=== PATIENT | female | born 1990 | race Caucasian/White ===

== ENCOUNTER → 2017-08-04 08:01 | Outpatient (CLI) | payer MEDICARE, MEDICAID, SELFPAY ==
[2017-08-04 08:58] LABS: International Normalized Ratio 3.3; Prothrombin Time (Protime)PT. 32.3 SECONDS (11.7-14.9)
== END ==
PROVIDERS: Family Provider Internal Medicine; PCP Internal Medicine; Visit Provider Nurse Practitioner Adult Health
DX: D75.82 Heparin induced thrombocytopenia (HIT) (principal); Z86.718 Personal history of other venous thrombosis and embolism
CPT/HCPCS: 36592; 85610; A4216

== ENCOUNTER → 2017-08-11 07:55 | Outpatient (CLI) | payer MEDICARE, MEDICAID, SELFPAY ==
[2017-08-11 09:10] LABS: Prothrombin Time (Protime)PT. 29.9 SECONDS (11.7-14.9)
== END ==
PROVIDERS: Family Provider Internal Medicine; PCP Internal Medicine
DX: D75.82 Heparin induced thrombocytopenia (HIT) (principal); Z86.718 Personal history of other venous thrombosis and embolism
CPT/HCPCS: 36592; 85610; A4216

== ENCOUNTER → 2017-08-16 08:08 | Outpatient (CLI) | payer MEDICARE, MEDICAID, SELFPAY ==
[2017-08-16 09:09] LABS: Prothrombin Time (Protime)PT. 37.8 SECONDS (11.7-14.9)
== END ==
PROVIDERS: Family Provider Internal Medicine; PCP Internal Medicine; Visit Provider Nurse Practitioner Adult Health
DX: D75.82 Heparin induced thrombocytopenia (HIT) (principal); Z86.718 Personal history of other venous thrombosis and embolism
CPT/HCPCS: 36592; 85610; A4216

== ENCOUNTER → 2017-08-25 07:55 | Outpatient (CLI) | payer MEDICARE, MEDICAID, SELFPAY ==
[2017-08-25 08:26] LABS: International Normalized Ratio 1.9; Prothrombin Time (Protime)PT. 21.4 SECONDS (11.7-14.9)
== END ==
PROVIDERS: Family Provider Internal Medicine; PCP Internal Medicine
DX: D75.82 Heparin induced thrombocytopenia (HIT) (principal); Z86.718 Personal history of other venous thrombosis and embolism
CPT/HCPCS: 36592; 85610; A4216

== ENCOUNTER → 2017-09-08 07:45 | Outpatient (CLI) | payer MEDICARE, MEDICAID, SELFPAY ==
[2017-09-08 08:20] LABS: International Normalized Ratio 1.4; Prothrombin Time (Protime)PT. 17.6 SECONDS (11.7-14.9)
== END ==
PROVIDERS: Family Provider Internal Medicine; PCP Internal Medicine; Visit Provider Nurse Practitioner Adult Health
DX: D75.82 Heparin induced thrombocytopenia (HIT) (principal); Z86.718 Personal history of other venous thrombosis and embolism
CPT/HCPCS: 36592; 85610; A4216

== ENCOUNTER → 2017-09-11 08:00 | Outpatient (CLI) | payer MEDICARE, MEDICAID, SELFPAY ==
[2017-09-11 08:22] LABS: Prothrombin Time (Protime)PT. 22.5 SECONDS (11.7-14.9)
[2017-09-11 09:04] LABS: Absolute Neutrophil Count 1.7 X10^3/uL (2.0-7.7); Basophil# 0.01 X10^3/uL; Basophil% 0.4 % (0-1); Differential Indicated SCAN CRITERIA MET; Eosinophil# 0.15 X10^3/uL; Eosinophils% 5.9 % (0-5); Hemoglobin 8.7 g/dl (12.0-15.0); Lymphocyte % 15.6 % (19-41); Mean Corpuscular Hgb 26.3 pg (27.0-32.0); Mean Corpuscular Volume 87.6 fL (81-99); Monocyte# 0.27 X10^3/uL; Monocyte% 10.5 % (0-10); Neutrophil # 1.72 X10^3/uL (2.7-7.7); Neutrophil % 67.2 % (47-70); POSITIVE COUNT NO; POSITIVE DIFFERENTIAL YES; POSITIVE MORPHOLOGY YES; Platelet Count 56 K/mm3 (150-450); RBC Distribution Width CV 22.4 % (11.6-14.6); Red Blood Count 3.31 M/mm3 (4.2-5.4); White Blood Count 2.6 K/mm3 (4.4-11.0)
== END ==
PROVIDERS: Family Provider Internal Medicine; PCP Internal Medicine; Visit Provider Nurse Practitioner Adult Health
DX: D75.82 Heparin induced thrombocytopenia (HIT) (principal); Z86.718 Personal history of other venous thrombosis and embolism
CPT/HCPCS: 36592; 85025; 85610; A4216

== ENCOUNTER → 2017-09-15 07:52 | Outpatient (CLI) | payer MEDICARE, MEDICAID, SELFPAY ==
[2017-09-15 08:27] LABS: International Normalized Ratio 2.2; Prothrombin Time (Protime)PT. 24.5 SECONDS (11.7-14.9)
== END ==
PROVIDERS: Family Provider Internal Medicine; PCP Internal Medicine; Visit Provider Nurse Practitioner Adult Health
DX: D75.82 Heparin induced thrombocytopenia (HIT) (principal); Z86.718 Personal history of other venous thrombosis and embolism
CPT/HCPCS: 36592; 85610; A4216

== ENCOUNTER → 2017-09-22 07:53 | Outpatient (CLI) | payer MEDICARE, MEDICAID, SELFPAY ==
[2017-09-22 08:21] LABS: International Normalized Ratio 1.6; Prothrombin Time (Protime)PT. 19.4 SECONDS (11.7-14.9)
== END ==
PROVIDERS: Family Provider Internal Medicine; PCP Internal Medicine; Visit Provider Nurse Practitioner Adult Health
DX: D75.82 Heparin induced thrombocytopenia (HIT) (principal); Z86.718 Personal history of other venous thrombosis and embolism
CPT/HCPCS: 36592; 85610; A4216

== ENCOUNTER → 2017-09-29 07:55 | Outpatient (CLI) | payer MEDICARE, MEDICAID, SELFPAY ==
[2017-09-29 08:33] LABS: Prothrombin Time (Protime)PT. 23.1 SECONDS (11.7-14.9)
== END ==
PROVIDERS: Family Provider Internal Medicine; PCP Internal Medicine; Visit Provider Nurse Practitioner Adult Health
DX: D75.82 Heparin induced thrombocytopenia (HIT) (principal); Z86.718 Personal history of other venous thrombosis and embolism
CPT/HCPCS: 36592; 85610; A4216

== ENCOUNTER → 2017-10-06 07:52 | Outpatient (CLI) | payer MEDICARE, MEDICAID, SELFPAY ==
[2017-10-06 08:27] LABS: International Normalized Ratio 1.2; Prothrombin Time (Protime)PT. 15.2 SECONDS (11.7-14.9)
== END ==
PROVIDERS: Family Provider Internal Medicine; PCP Internal Medicine; Visit Provider Nurse Practitioner Adult Health
DX: D75.82 Heparin induced thrombocytopenia (HIT) (principal); Z86.718 Personal history of other venous thrombosis and embolism
CPT/HCPCS: 36592; 85610; A4216

== ENCOUNTER → 2017-10-09 07:57 | Outpatient (CLI) | payer MEDICARE, SELFPAY ==
[2017-10-09 08:36] LABS: International Normalized Ratio 2.2; Prothrombin Time (Protime)PT. 24.1 SECONDS (11.7-14.9)
== END ==
PROVIDERS: Family Provider Internal Medicine; PCP Internal Medicine; Visit Provider Nurse Practitioner Adult Health
DX: D75.82 Heparin induced thrombocytopenia (HIT) (principal); Z86.718 Personal history of other venous thrombosis and embolism
CPT/HCPCS: 36592; 85610; A4216

== ENCOUNTER → 2017-10-13 07:51 | Outpatient (CLI) | payer MEDICARE, SELFPAY ==
[2017-10-13 08:32] LABS: Prothrombin Time (Protime)PT. 22.8 SECONDS (11.7-14.9)
== END ==
PROVIDERS: Family Provider Internal Medicine; PCP Internal Medicine; Visit Provider Nurse Practitioner Adult Health
DX: D75.82 Heparin induced thrombocytopenia (HIT) (principal); Z86.718 Personal history of other venous thrombosis and embolism
CPT/HCPCS: 36592; 85610; A4216

== ENCOUNTER 2017-10-13 09:34 | Emergency (ER) | payer MEDICARE, SELFPAY ==
[2017-10-13] VITALS (10 sets, daily range): BP systolic 140–205; BP diastolic 75–122; PULSE 106–126; RESP 14–40; TEMP 37.6–37.7; O2SAT 75–100; BMI 38.3
[2017-10-13] MEDS: Succinylcholine Chloride 200 MG/10 ML Vial 100 MG IV (09:41)
--- NOTE | 2017-10-13 09:56 | EKG12_ITS ---
Test Reason : POST INTUBATION Blood Pressure : / mmHG Vent. Rate : 124 BPM Atrial Rate : 124 BPM P-R Int : 142 ms QRS Dur : 088 ms QT Int : 336 ms P-R-T Axes : 028 -07 073 degrees QTc Int : 482 ms Sinus tachycardia Left ventricular hypertrophy Abnormal ECG Confirmed by RUSTAM MAST, PARISH ([id number]), commissioning editor FARRUKH CHAVEZ ([id number] on 10/17/2017 8:19:20 AM Referred By: Magdalena Lewis Confirmed By:PARISH EASTON MD
--- NOTE | 2017-10-13 10:00 | RAD_ITS ---
STUDY: X-RAY CHEST REASON FOR EXAM: Female, 27 years old. Shortness of breath. History of a alveolar hemorrhage. TECHNIQUE: Single AP portable view of the chest. COMPARISON: Comparison is made with prior study dated April 01, 2017. FINDINGS: An endotracheal tube is in situ. The tip is at 3.6 cm proximal to the remy. A nasogastric tube is seen with the tip below the left hemidiaphragm. A left-sided dual-chamber dialysis catheter is seen. The tip is at the junction of the superior vena cava and right atrium. There is evidence of bilateral diffuse airspace disease suggestive of pulmonary edema. With the patient's history of alveolar hemorrhage, this may represent pulmonary hemorrhage. There is no demonstrated pleural abnormality. Normal size heart. Normal mediastinum and eric. Normal visualized pulmonary arteries. Normal visualized aortic arch and descending thoracic aorta. Normal visualized thoracic spine. Normal visualized ribs, clavicles, and shoulders. There is no demonstrated abnormality of the visualized soft tissue structures of the upper abdomen. RAD/Chest 1 View (Portable) IMPRESSION: Support tubes are in good position. Bilateral diffuse airspace disease. Electronically Signed: Reinaldo Kam MD at 10:24 EDT Tel [phone], Service support ,
[2017-10-13] MEDS: Propofol 10MG/Ml 1,000 MG/100 ML Bottle 3.138 MG CONT INF (10:15)
[2017-10-13] MEDS: 0.9% Normal Saline 1,000 ML 1000 ML IV (10:16)
[2017-10-13 10:27] LABS: International Normalized Ratio 2.1; Prothrombin Time (Protime)PT. 23.7 SECONDS (11.7-14.9)
[2017-10-13 10:28] LABS: Partial Thromboplast Time 34.9 Seconds (24.1-36.2)
[2017-10-13 10:33] LABS: ALB/GLOB Ratio 1.2 RATIO (0.9-2.4); AST(SGOT) 14 U/L (15-37); Alanine Aminotransfer ALT/SGPT 17 U/L (13-56); Albumin, Serum 3.5 g/dL (3.2-5.0); Alkaline Phosphatase 75 U/L (45-117); Anion Gap 18 (5-15); BUN 33 mg/dL (7-18); Calcium,Total 8.2 mg/dL (8.5-10.1); Chloride 104 mmol/L (98-107); Creatinine, Serum 1.32 mg/dL (0.55-1.02); EST Glomerular Filtration Rate 51 mL/min (>60); Est Glom Filt Rate - Afr Amer 61 mL/min (>60); Globulin 2.8 g/dL (2.2-4.2); Glucose 194 mg/dL (74-106); Protein, Total 6.3 g/dL (6.4-8.2); Sodium Level 140 mmol/L (136-145)
[2017-10-13 10:36] LABS: Allen Test POS; Base Excess -10 mmol/L (-2 to +2); Bicarbonate 19.1 mmol/L (22-26); Blood Gas Specimen Type ART; FI02 100; Mode A-C; O2 Delivery Device Vent; PEEP 10; PO2 66 mmHG (75-100); RR 14; SITE R Radial; SO2 85 % (95-99); Time Given 1020; Total Carbon Dioxide 21 mmol/L; Vt 450; pCO2 56.9 mmHg (35-45); pH 7.13 (7.35-7.45)
[2017-10-13 10:37] LABS: Mucous, Urine 0 SEEN /hpf (<or=2+)
[2017-10-13 10:40] LABS: Color, Urine Yellow (Yellow); Glucose, Dipstick Normal (Normal); Ketone-Dipstick 5 mg/dl (Negative); Leukocyte Esterase-Dipstick 25 /ul (Negative); Nitrite-Dipstick Negative (Negative); Occult Blood-Urine 250 /ul (Negative); Protein-Dipstick 500 mg/dl (Negative); Urine Bilirubin Dipstick Negative (Negative); Urine Clarity Cloudy (Clear); Urine Urobilinogen 1 mg/dl (Normal)
[2017-10-13 10:45] LABS: Absolute Lymphocyte Count 1.41 X10^3/ul (0.83-4.51); Absolute Neutrophil Count 13.5 X10^3/uL (2.0-7.7); Basophil# 0.09 X10^3/uL; Basophil% 0.5 % (0-1); Eosinophil# 0.41 X10^3/uL; Eosinophils% 2.4 % (0-5); Hematocrit 35.1 % (37-47); Hemoglobin 10.1 g/dl (12.0-15.0); Lymphocyte # 1.41 X10^3/ul (4.0); Lymphocyte % 8.3 % (19-41); Mean Corp Hgb Conc 28.8 g/gl (32-36); Mean Corpuscular Hgb 27.2 pg (27.0-32.0); Mean Corpuscular Volume 94.6 fL (81-99); Monocyte# 1.18 X10^3/uL; Neutrophil # 13.45 X10^3/uL (2.7-7.7); Neutrophil % 79.3 % (47-70); Platelet Count 166 K/mm3 (150-450); RBC Distribution Width CV 21.6 % (11.6-14.6); RBC Distribution Width SD 73.5 fl (35.1-43.9); Red Blood Count 3.71 M/mm3 (4.2-5.4)
--- NOTE | 2017-10-13 10:46 | ED.VISSUMM ---
- ER Visit Summary Date of Service: 10/13/17 Chief Complaint: Respiratory distress History of Present Illness: The patient is a 27 F with respiratory distress, severe shortness of breath, nausea, vomiting. The patient has a history of PE, antiphospholipid antibody syndrome, heparin-induced thrombocytopenia, alveolar hemorrhage, and sepsis. She had similar symptoms in the past with alveolar hemorrhage. She required intubation and she was transferred to the [facility] as she required plasmapheresis. She is requesting transfer there again today. She is extremely short of breath and cannot provide much more history, but she said she required intubation with this in the past. Physical Examination: Hypertensive in the 190s systolic, tachycardic at 125, afebrile, oxygen saturations in the 80s on a nonrebreather mask. Pale skin. Short sentences, respiratory distress. Tachycardic. Coarse breath sounds bilaterally. Lower extremity edema noted, symmetric. Pulses strong and equal. Test Results: EKG showed sinus rhythm at a rate of 124. Chest x-ray, performed after intubation, shows support tubes in place with bilateral diffuse airspace disease. Labs are still pending. ABG showed a pH of 7.1, O2 of 85, and CO2 of 56.9. Cultures pending. Emergency Department Course and Treatment: Patient required intubation shortly after arrival for hypoxia and anticipated clinical course. This was performed with direct visualization, etomidate, and succinylcholine. Good color change on capnography and good position on x-ray. Patient was sedated with propofol and seemed to tolerate this well. She was placed on a low tidal volume with high PEEP and required suction. Head of the bed was raised. This seemed to help with oxygenation and she remained in the mid 90s on 100% oxygen. X-ray showed diffuse airspace disease. She was started on Zosyn and vancomycin. INR 2.1. Family says that she is kept between 2 and 3 and not higher because of her history of alveolar hemorrhage. Patient will require plasmapheresis. We do not have those capabilities at this hospital. They are requesting the [facility]. I spoke with Dr. Mathieu Christie. The ICU is full and I am awaiting a call back from him. I will continue to stabilize and resuscitate here. I did have our computer forensics analyst see the patient in the emergency department for any other further input. Dr. Buchanan made some changes to the ventilator. Will await transport by helicopter service. Treatment Plan: As above Disposition: Transfer Impression: 1. Acute respiratory failure 2. Alveolar hemorrhage This note was generated with [employer] dictation software. It may contain incorrect words, spelling, and punctuation that were not noted in review of the chart prior to signing ED Disposition - Plan for ED Patient: Chief Complaint: Shortness of Breath Referrals: Peyton López MD [Primary Care Provider] -
[2017-10-13 10:48] LABS: Differential Indicated SCAN CRITERIA MET; Mean Platelet Vol. 12.2 fl (6.2-12.0); POSITIVE COUNT YES; POSITIVE DIFFERENTIAL NO; POSITIVE MORPHOLOGY YES
[2017-10-13 10:50] LABS: NRBC Flagged by Analyzer 0.24 % (0-5)
--- NOTE | 2017-10-13 10:54 | ED.DCSUM_ITS ---
- ER Visit Summary Date of Service: 10/13/17 Chief Complaint: Respiratory distress History of Present Illness: The patient is a 27 F with respiratory distress, severe shortness of breath, nausea, vomiting. The patient has a history of PE, antiphospholipid antibody syndrome, heparin-induced thrombocytopenia, alveolar hemorrhage, and sepsis. She had similar symptoms in the past with alveolar hemorrhage. She required intubation and she was transferred to the [facility] as she required plasmapheresis. She is requesting transfer there again today. She is extremely short of breath and cannot provide much more history, but she said she required intubation with this in the past. Physical Examination: Hypertensive in the 190s systolic, tachycardic at 125, afebrile, oxygen saturations in the 80s on a nonrebreather mask. Pale skin. Short sentences, respiratory distress. Tachycardic. Coarse breath sounds bilaterally. Lower extremity edema noted, symmetric. Pulses strong and equal. Test Results: EKG showed sinus rhythm at a rate of 124. Chest x-ray, performed after intubation, shows support tubes in place with bilateral diffuse airspace disease. Labs are still pending. ABG showed a pH of 7.1, O2 of 85, and CO2 of 56.9. Cultures pending. Emergency Department Course and Treatment: Patient required intubation shortly after arrival for hypoxia and anticipated clinical course. This was performed with direct visualization, etomidate, and succinylcholine. Good color change on capnography and good position on x-ray. Patient was sedated with propofol and seemed to tolerate this well. She was placed on a low tidal volume with high PEEP and required suction. Head of the bed was raised. This seemed to help with oxygenation and she remained in the mid 90s on 100% oxygen. X-ray showed diffuse airspace disease. She was started on Zosyn and vancomycin. INR 2.1. Family says that she is kept between 2 and 3 and not higher because of her history of alveolar hemorrhage. Patient will require plasmapheresis. We do not have those capabilities at this hospital. They are requesting the [facility]. I spoke with Dr. Mathieu Christie. The ICU is full and I am awaiting a call back from him. I will continue to stabilize and resuscitate here. I did have our energy conservation representative see the patient in the emergency department for any other further input. Dr. Buchanan made some changes to the ventilator. Will await transport by helicopter service. Treatment Plan: As above Disposition: Transfer Impression: 1. Acute respiratory failure 2. Alveolar hemorrhage This note was generated with [employer] dictation software. It may contain incorrect words, spelling, and punctuation that were not noted in review of the chart prior to signing ED Disposition - Plan for ED Patient: Chief Complaint: Shortness of Breath Referrals: Peyton López MD [Primary Care Provider] -
[2017-10-13 10:57] LABS: Pregnancy, Serum, hCG Quali. NEGATIVE Negative (0-9 Nonpreg)
[2017-10-13 11:00] LABS: Bacteria 1+ /hpf (None Seen); Red Blood Cells-Urine 10-25 SEEN /hpf (0-5); Squamous Epithelial Cells - UA 0-5 SEEN /hpf (5-10); White Blood Cells 0-5 SEEN /hpf (0-5)
[2017-10-13 11:01] LABS: Base Excess -5 mmol/L (-2 to +2); Bicarbonate 21.4 mmol/L (22-26); Blood Gas Specimen Type ART; FI02 100; Mode A-C; O2 Delivery Device Vent; PEEP 14; PO2 79 mmHG (75-100); RR 16; SITE R Radial; SO2 94 % (95-99); Time Given 1055; Total Carbon Dioxide 23 mmol/L; Vt 400; pCO2 44.7 mmHg (35-45); pH 7.29 (7.35-7.45)
[2017-10-13 11:06] LABS: Lactic Acid 12.4 mmol/L (0.4-2.0)
--- NOTE | 2017-10-13 11:13 | PCM.CON.CC ---
Problem List (1) Diffuse pulmonary alveolar hemorrhage Status: Acute (2) Acute on chronic anemia Status: Acute (3) Hypertension Status: Chronic (4) Thrombocytopenia Status: Chronic (5) Chronic anemia Status: Chronic (6) History of alveolar hemorrhage Status: Chronic (7) History of deep vein thrombosis (DVT) of lower extremity Status: Chronic (8) Antiphospholipid antibody syndrome Status: Chronic (9) Morbid obesity Status: Chronic (10) Chronic renal failure, stage 3 (moderate) Status: Chronic (11) Steroid dependence Status: Chronic Reason for Consult Date of Consultation: 10/13/17 Reason for Consultation: ARDS History of Present Illness: The patient is a 27 year old F with past medical history listed below, who presented to [facility] on 10/13/2017 secondary to acute shortness of breath, nausea and vomiting. Patient was reportedly of her usual health when she was at the eye doctor this morning port. Over the course of 30 minutes, patient became severely short of breath and was transported to the emergency room. On evaluation, patient was noted to be hypertensive with systolic blood pressures in the 190s. Patient was also tachycardic at 125 bpm and was saturating 80% on a nonrebreather mask. Patient did appear pale and was emergently intubated by the ER staff. Shortly after intubation, patient remained hypoxic despite increased PEEP and 100% FiO2, so I was asked to come to the ER to help with evaluation while transportation is arranged. Patient is unable to provide any history at this time. Patient's reports that she suffers from severe antiphospholipid antibody syndrome and was recently discharged from the [facility] following plasmapheresis. Patient reportedly has to receive her care at [facility] or [facility]. ER has called for transportation, but no bed is available at this time. Patient's reports that she has been of her usual health. Patient does suffer from seasonal allergies at this time of year, but is not reported any nausea, vomiting, fever, chills, lower extremity edema, hemoptysis or cyanosis in the last 3-4 days. Patient does have a history of alveolar hemorrhage and is on anticoagulation. 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 (Verified 04/25/17 00:47) Hives Gadolinium-MRI Contrast Medium [CONTRAST] Adverse Reaction (Verified 04/25/17 00:47) RENAL FAILURE Iodinated Contrast- Oral and IV Dye [CONTRASTS] Adverse Reaction (Verified 04/25/17 00:47) RENAL FAILURE Home Medications: Ambulatory Orders Medication Instructions Recorded Cetirizine HCl [Zyrtec] 10 mg PO BID 02/12/16 Gabapentin [Neurontin] 400 mg PO TIDCM 02/12/16 Potassium Chloride [K-Dur] 20 meq PO DAILY PRN PRN 02/12/16 Acetaminophen 325 mg PO Q4H PRN PRN 03/19/16 predniSONE tablet 5 mg PO QODAY 09/29/16 Albuterol Aerosols [Ventolin 2.5 mg INHALATION Q4HWA.RT PRN 12/10/16 Aerosols] Budesonide 8.43 ml NS PRN PRN 12/10/16 Docusate Sodium [Colace] 100 mg PO BID PRN 12/10/16 Pantoprazole Sodium [Protonix] 40 mg PO PRN PRN 12/10/16 Polyethylene Glycol 8000 2,500 gm MC PRN PRN 12/10/16 [Polyethylene Glycol] Senna [Senokot] 1 tablet PO BID PRN 12/10/16 Furosemide [Lasix] 40 mg PO DAILY #30 tablet 04/05/17 Ondansetron [Zofran Odt] 8 mg PO PRN PRN #12 04/05/17 Warfarin [Coumadin] 5 mg PO DAILY #0 04/05/17 proMETHazine tablet [Phenergan] 25 mg PO Q6H PRN PRN #14 tablet 04/25/17 Cyclophosphamide [Cyclophosphamide] 150 mg PO DAILY 10/13/17 Surgical History: - - IVC filter placement Psychiatric History: No pertinent psych hx MUCK BOSS History: No pertinent MUCK BOSS history Smoking Status: Never smoker - *Family History Maternal History Items: Cancer Paternal History Items: No pertinent history Review of Systems Unable to obtain accurate/complete ROS d/t: Intubated and unresponsive Objective: Recent chest x-ray was personally reviewed and shows bilateral fluffy infiltrates without effusion. No previous x-rays are available for review. Patient did have an echocardiogram completed in March 2017 showing an EF of 50% with elevated pulmonary artery pressures of 54 mmHg. At that time, there was no significant valvular abnormalities. On my arrival in the emergency room, patient was increased on PEEP to 14. Patient's tidal volume was decreased to 400 (6 cc/kg ideal body weight) and allowed to have respiratory rates in the 20s. No significant air trapping or auto PEEP was appreciated on flow volume loops. - Physical Exam General: - - Intubated and unresponsive. Obese. Fair vent synchrony noted. Treatment appearance HEENT: Atraumatic, PERRLA, EOMI, Normocephalic Oral: Moist Mucosa, No Gingival or Mucosal Lesions/ Ulcerations, - - Pale pink endotracheal secretions noted Neck: Supple, No Nodes, Trachea Midline, JVD, Right Lungs: No rhonchi, No wheeze, Diminished, Rales - Bilateral, - - Symmetric expansion. No dullness to percussion. Chest port noted Cardiovascular: Normal S1, Normal S2, No murmurs, No rub noted, No Gallop, Tachycardic Abdomen: Bowel Sounds Present, Soft, Non Tender, Non-Distended, Obese Extremities: No clubbing, No cyanosis, Edema - Bilateral lower extremities Skin: - - Venous stasis changes the lower extremities. Lines are clean, dry and intact. Musculoskeletal: No Tenderness to Palpation of Joints or Extremities Lymphatic: No Cervical, Supraclavicular, or Inguinal Adenopathy Neurological: - - Gag and cough reflexes. Spontaneous movement to noxious stimulus. Psych/Mental Status: Flat Affect Vital Signs Temp Pulse Resp BP Pulse Ox 37.6 C H 113 H 22 H 140/77 H 97 10/13/17 11:05 10/13/17 11:05 10/13/17 11:05 10/13/17 11:05 10/13/17 11:05 Oxygen Flow Rate (L/min) 15 Oxygen Delivery Method Mechanical Ventilator Weight: 104.6 kg Body Mass Index (BMI) 38.3 Finger Stick Blood Glucose 127 Laboratory Tests Past 24 Hrs 10/13/17 10/13/17 10/13/17 09:35 09:35 09:35 WBC 17.0 H RBC 3.71 L Hgb 10.1 L Hct 35.1 L MCV 94.6 MCH 27.2 MCHC 28.8 L RDW 21.6 H RDW Differential 73.5 H Plt Count 166 MPV Pending Immature Gran % (Auto) 2.500 H Neut % (Auto) 79.3 H Lymph % (Auto) 8.3 L [place] % (Auto) 7.0 Eos % (Auto) 2.4 Baso % (Auto) 0.5 Absolute Neuts (auto) 13.5 H Absolute Lymphs (auto) 1.41 Total Counted Pending Nucleated RBC % Pending Diff Path Review Pending Absolute Retic Pending PT 23.7 H INR 2.1 APTT 34.9 Specimen Type Sample Site pH Bicarbonate Actual POC Total CO2 Base Excess O2 Saturation O2 % ABG pCO2 ABG pO2 Arnie Test Respiration Rate O2 Delivery Device Minute Volume Vent Mode Tidal Volume POC PEEP Blood Gas Notified Whom Blood Gas Notified Time Sodium 140 Potassium 5.0 Chloride 104 Carbon Dioxide 18.0 L Anion Gap 18 H BUN 33 H Creatinine 1.32 H Estim Creat Clear Calc 57.10 Est GFR (MDRD) Af Amer 61 Est GFR (MDRD) Non-Af 51 L BUN/Creatinine Ratio 25.0 H Glucose 194 H Lactic Acid Calcium 8.2 L Total Bilirubin 0.70 AST 14 L ALT 17 Alkaline Phosphatase 75 Troponin I 0.06 Total Protein 6.3 L Albumin 3.5 Globulin 2.8 Albumin/Globulin Ratio 1.2 Serum , Qual Urine Color Urine Clarity Urine pH Ur Specific [place] Urine Protein Urine Glucose (UA) Urine Ketones Urine Occult Blood Urine Nitrite Urine Bilirubin Urine Urobilinogen Ur Leukocyte Esterase Urine RBC Urine WBC Ur Squamous Epith Cells Urine Bacteria Urine Mucus 10/13/17 10/13/17 10/13/17 09:35 09:35 10:28 WBC RBC Hgb Hct MCV MCH MCHC RDW RDW Differential Plt Count MPV Immature Gran % (Auto) Neut % (Auto) Lymph % (Auto) [place] % (Auto) Eos % (Auto) Baso % (Auto) Absolute Neuts (auto) Absolute Lymphs (auto) Total Counted Nucleated RBC % Diff Path Review Absolute Retic PT INR APTT Specimen Type ART Sample Site R Radial pH 7.13 L* Bicarbonate Actual 19.1 L POC Total CO2 21 Base Excess -10 L O2 Saturation 85 L O2 % 100 ABG pCO2 56.9 H ABG pO2 66 L Arnie Test POS Respiration Rate 14 O2 Delivery Device Vent Minute Volume 14.00 Vent Mode A-C Tidal Volume 450 POC PEEP 10 Blood Gas Notified Whom ED Blood Gas Notified Time 1020 Sodium Potassium Chloride Carbon Dioxide Anion Gap BUN Creatinine Estim Creat Clear Calc Est GFR (MDRD) Af Amer Est GFR (MDRD) Non-Af BUN/Creatinine Ratio Glucose Lactic Acid 12.4 H* Calcium Total Bilirubin AST ALT Alkaline Phosphatase Troponin I Total Protein Albumin Globulin Albumin/Globulin Ratio Serum , Qual NEGATIVE Urine Color Urine Clarity Urine pH Ur Specific [place] Urine Protein Urine Glucose (UA) Urine Ketones Urine Occult Blood Urine Nitrite Urine Bilirubin Urine Urobilinogen Ur Leukocyte Esterase Urine RBC Urine WBC Ur Squamous Epith Cells Urine Bacteria Urine Mucus 10/13/17 10/13/17 10:30 10:56 WBC RBC Hgb Hct MCV MCH MCHC RDW RDW Differential Plt Count MPV Immature Gran % (Auto) Neut % (Auto) Lymph % (Auto) [place] % (Auto) Eos % (Auto) Baso % (Auto) Absolute Neuts (auto) Absolute Lymphs (auto) Total Counted Nucleated RBC % Diff Path Review Absolute Retic PT INR APTT Specimen Type ART Sample Site R Radial pH 7.29 L Bicarbonate Actual 21.4 L POC Total CO2 23 Base Excess -5 L O2 Saturation 94 L O2 % 100 ABG pCO2 44.7 ABG pO2 79 Arnie Test NA Respiration Rate 16 O2 Delivery Device Vent Minute Volume Vent Mode A-C Tidal Volume 400 POC PEEP 14 Blood Gas Notified Whom ED Blood Gas Notified Time 1055 Sodium Potassium Chloride Carbon Dioxide Anion Gap BUN Creatinine Estim Creat Clear Calc Est GFR (MDRD) Af Amer Est GFR (MDRD) Non-Af BUN/Creatinine Ratio Glucose Lactic Acid Calcium Total Bilirubin AST ALT Alkaline Phosphatase Troponin I Total Protein Albumin Globulin Albumin/Globulin Ratio Serum , Qual Urine Color Yellow Urine Clarity Cloudy Urine pH 6.0 Ur Specific [place] 1.020 Urine Protein 500 H Urine Glucose (UA) Normal Urine Ketones 5 H Urine Occult Blood 250 H Urine Nitrite Negative Urine Bilirubin Negative Urine Urobilinogen 1 H Ur Leukocyte Esterase 25 H Urine RBC 10-25 SEEN Urine WBC 0-5 SEEN Ur Squamous Epith Cells 0-5 SEEN Urine Bacteria 1+ Urine Mucus 0 SEEN Assessment/Plan RECOMMENDATIONS: 1. Await transport to tertiary center for plasmapheresis 2. Agree with initiation of empiric antibiotics 3. Would not actively reverse anticoagulation 4. Continue with permissive hypercapnia ventilation 5. Initiate Argatroban if necessary for anticoagulation, not heparin IMPRESSIONS: 1. ARDS secondary to diffuse pulmonary hemorrhage secondary to antiphospholipid crisis Patient with previous presentations in the past that have been treated with plasmapheresis. There is no plasmapheresis available [facility]. ER is currently arranging for transportation to a tertiary type center. Patient is on low tidal volume ventilation with acceptable pH. Patient does have a significant lactic acidosis, likely secondary to oxygen tension. Patient is responding well to ventilation at this time. If sedated, vent rate will likely need to be increased. Attempting to avoid APRV as this will be very difficult to transport on. 2. Acute kidney injury Creatinine of 0.94 noted in May 2017. Unclear if this is secondary to ATN versus long-term issues. Patient was recently admitted at [facility] with a similar type presentation. Would avoid contrast if possible. 3. Anemia/thrombocytopenia/coagulopathy/history of heparin-induced thrombocytopenia Patient does have a history of heparin-induced thrombocytopenia, so all heparin products should be avoided. Patient's INR is currently therapeutic, but no obvious signs of acute blood loss anemia at this time. Continue to monitor blood counts daily with plans for transfusion if hemoglobin is less than 7 g/dL. 4. Personal history of antiphospholipid antibody syndrome Will need to watch INR closely. There are currently therapeutic. Patient should have plasmapheresis as soon as possible. 5. Personal history of DVT status post IVC filter/hypertension/obesity/allergic rhinitis/GERD Complicates care, management, recovery and prognosis. Continue home medications as indicated. TIME: 60 minutes of critical care time spent addressing patient's ARDS, acute kidney injury, review of all data and collaboration with care team (10:30 AM to 11:30 AM)
[2017-10-13 11:16] LABS: Crenated RBC 1+; Polychromasia 1+; Schistocytes 2+
[2017-10-13 11:17] LABS: Anisocytosis 2+; Platelet Estimate ADEQUATE (ADEQ); Platelet Morphology LARGE; Red Cell Morphology N CYTIC NORMAL (NORM C&C)
--- NOTE | 2017-10-13 11:27 | ED.RN ---
PT NOT GIVEN ZOSYN DUE TO PTS REFUSING SO. PTS STATES THAT PT GETS C-DIFF EVERY TIME AFTER RECEIVING ZOSYN AND WILL NOT ALLOW IT TO BE ADMINISTERED TO PATIENT EVEN AFTER EDUCATING ON SUBJECT. PT ALSO NOT GIVEN VANCOMYCIN AFTER CONSULTATION WITH PHYSICIANS AND COPPER MINER BLASTING. PT HAS NO IV ACCESS ASIDE FROM SINGLE LUMEN PORT ACCESS. PT HAD CONTRAINDICATIONS FOR A CENTRAL LINE PLACEMENT. VANCOMYCIN SENT WITH PATIENT FOR TRANSPORT TEAM. CRITICAL CARE WIRE WALKER STATED THEY WILL TAKE VANCOMYCIN AND FIGURE OUT ADMINISTRATION EN ROUTE TO [facility]. PT TOOK PATIENTS BELONGINGS HOME WITH HIM. REPORT WAS GIVEN TO CRITICAL CARE TRANSPORT TEAM AND CRITICAL CARE WIRE WALKER.
--- NOTE | 2017-10-13 11:39 | CON.PCM_ITS ---
Problem List (1) Diffuse pulmonary alveolar hemorrhage Status: Acute (2) Acute on chronic anemia Status: Acute (3) Hypertension Status: Chronic (4) Thrombocytopenia Status: Chronic (5) Chronic anemia Status: Chronic (6) History of alveolar hemorrhage Status: Chronic (7) History of deep vein thrombosis (DVT) of lower extremity Status: Chronic (8) Antiphospholipid antibody syndrome Status: Chronic (9) Morbid obesity Status: Chronic (10) Chronic renal failure, stage 3 (moderate) Status: Chronic (11) Steroid dependence Status: Chronic Reason for Consult Date of Consultation: 10/13/17 Reason for Consultation: ARDS History of Present Illness: The patient is a 27 year old F with past medical history listed below, who presented to [facility] on 10/13/2017 secondary to acute shortness of breath, nausea and vomiting. Patient was reportedly of her usual health when she was at the eye doctor this morning port. Over the course of 30 minutes , patient became severely short of breath and was transported to the emergency room. On evaluation, patient was noted to be hypertensive with systolic blood pressures in the 190s. Patient was also tachycardic at 125 bpm and was saturating 80% on a nonrebreather mask. Patient did appear pale and was emergently intubated by the ER staff. Shortly after intubation, patient remained hypoxic despite increased PEEP and 100% FiO2, so I was asked to come to the ER to help with evaluation while transportation is arranged. Patient is unable to provide any history at this time. Patient's reports that she suffers from severe antiphospholipid antibody syndrome and was recently discharged from the [facility] following plasmapheresis. Patient reportedly has to receive her care at [facility] or [facility]. ER has called for transportation, but no bed is available at this time. Patient's reports that she has been of her usual health. Patient does suffer from seasonal allergies at this time of year, but is not reported any nausea, vomiting, fever, chills, lower extremity edema, hemoptysis or cyanosis in the last 3-4 days. Patient does have a history of alveolar hemorrhage and is on anticoagulation. 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 (Verified 04/25/17 00:47) Hives Gadolinium-MRI Contrast Medium [CONTRAST] Adverse Reaction (Verified 04/25/17 00 :47) RENAL FAILURE Iodinated Contrast- Oral and IV Dye [CONTRASTS] Adverse Reaction (Verified 04/25 00:47) RENAL FAILURE Home Medications: Ambulatory Orders Medication Instructions Recorded Cetirizine HCl [Zyrtec] 10 mg PO BID 02/12/16 Gabapentin [Neurontin] 400 mg PO TIDCM 02/12/16 Potassium Chloride [K-Dur] 20 meq PO DAILY PRN PRN 02/12/16 Acetaminophen 325 mg PO Q4H PRN PRN 03/19/16 predniSONE tablet 5 mg PO QODAY 09/29/16 Albuterol Aerosols [Ventolin 2.5 mg INHALATION Q4HWA.RT PRN 12/10/16 Aerosols] Budesonide 8.43 ml NS PRN PRN 12/10/16 Docusate Sodium [Colace] 100 mg PO BID PRN 12/10/16 Pantoprazole Sodium [Protonix] 40 mg PO PRN PRN 12/10/16 Polyethylene Glycol 8000 2,500 gm MC PRN PRN 12/10/16 [Polyethylene Glycol] Senna [Senokot] 1 tablet PO BID PRN 12/10/16 Furosemide [Lasix] 40 mg PO DAILY #30 tablet 04/05/17 Ondansetron [Zofran Odt] 8 mg PO PRN PRN #12 04/05/17 Warfarin [Coumadin] 5 mg PO DAILY #0 04/05/17 proMETHazine tablet [Phenergan] 25 mg PO Q6H PRN PRN #14 tablet 04/25/17 Cyclophosphamide [Cyclophosphamide] 150 mg PO DAILY 10/13/17 Surgical History: - - IVC filter placement Psychiatric History: No pertinent psych hx [employer]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 No previous x-rays are available for review. Patient did have an echocardiogram completed in March 2017 showing an EF of 50% with elevated pulmonary artery pressures of 54 mmHg. At that time, there was no significant valvular abnormalities. On my arrival in the emergency room, patient was increased on PEEP to 14. Patient's tidal volume was decreased to 400 (6 cc/kg ideal body weight) and allowed to have respiratory rates in the 20s. No significant air trapping or auto PEEP was appreciated on flow volume loops. - Physical Exam General: - - Intubated and unresponsive. Obese. Fair vent synchrony noted. Treatment appearance HEENT: Atraumatic, PERRLA, EOMI, Normocephalic Oral: Moist Mucosa, No Gingival or Mucosal Lesions/ Ulcerations, - - Pale pink endotracheal secretions noted Neck: Supple, No Nodes, Trachea Midline, JVD, Right Lungs: No rhonchi, No wheeze, Diminished, Rales - Bilateral, - - Symmetric expansion. No dullness to percussion. Chest port noted Cardiovascular: Normal S1, Normal S2, No murmurs, No rub noted, No Gallop, Tachycardic Abdomen: Bowel Sounds Present, Soft, Non Tender, Non-Distended, Obese Extremities: No clubbing, No cyanosis, Edema - Bilateral lower extremities Skin: - - Venous stasis changes the lower extremities. Lines are clean, dry and intact. Musculoskeletal: No Tenderness to Palpation of Joints or Extremities Lymphatic: No Cervical, Supraclavicular, or Inguinal Adenopathy Neurological: - - Gag and cough reflexes. Spontaneous movement to noxious stimulus. Psych/Mental Status: Flat Affect Vital Signs Temp Pulse Resp BP Pulse Ox 37.6 C H 113 H 22 H 140/77 H 97 10/13/17 11:05 10/13/17 11:05 10/13/17 11:05 10/13/17 11:05 10/13/17 11:05 Oxygen Flow Rate (L/min) 15 Oxygen Delivery Method Mechanical Ventilator Weight: 104.6 kg Body Mass Index (BMI) 38.3 Finger Stick Blood Glucose 127 Laboratory Tests Past 24 Hrs 10/13/17 10/13/17 10/13/17 09:35 09:35 09:35 WBC 17.0 H RBC 3.71 L Hgb 10.1 L Hct 35.1 L MCV 94.6 MCH 27.2 MCHC 28.8 L RDW 21.6 H RDW Differential 73.5 H Plt Count 166 MPV Pending Immature Gran % (Auto) 2.500 H Neut % (Auto) 79.3 H Lymph % (Auto) 8.3 L [place] % (Auto) 7.0 Eos % (Auto) 2.4 Baso % (Auto) 0.5 Absolute Neuts (auto) 13.5 H Absolute Lymphs (auto) 1.41 Total Counted Pending Nucleated RBC % Pending Diff Path Review Pending Absolute Retic Pending PT 23.7 H INR 2.1 APTT 34.9 Specimen Type Sample Site pH Bicarbonate Actual POC Total CO2 Base Excess O2 Saturation O2 % ABG pCO2 ABG pO2 Arnie Test Respiration Rate O2 Delivery Device Minute Volume Vent Mode Tidal Volume POC PEEP Blood Gas Notified Whom Blood Gas Notified Time Sodium 140 Potassium 5.0 Chloride 104 Carbon Dioxide 18.0 L Anion Gap 18 H BUN 33 H Creatinine 1.32 H Estim Creat Clear Calc 57.10 Est GFR (MDRD) Af Amer 61 Est GFR (MDRD) Non-Af 51 L BUN/Creatinine Ratio 25.0 H Glucose 194 H Lactic Acid Calcium 8.2 L Total Bilirubin 0.70 AST 14 L ALT 17 Alkaline Phosphatase 75 Troponin I 0.06 Total Protein 6.3 L Albumin 3.5 Globulin 2.8 Albumin/Globulin Ratio 1.2 Serum , Qual Urine Color Urine Clarity Urine pH Ur Specific [place] Urine Protein Urine Glucose (UA) Urine Ketones Urine Occult Blood Urine Nitrite Urine Bilirubin Urine Urobilinogen Ur Leukocyte Esterase Urine RBC Urine WBC Ur Squamous Epith Cells Urine Bacteria Urine Mucus 10/13/17 10/13/17 10/13/17 09:35 09:35 10:28 WBC RBC Hgb Hct MCV MCH MCHC RDW RDW Differential Plt Count MPV Immature Gran % (Auto) Neut % (Auto) Lymph % (Auto) [place] % (Auto) Eos % (Auto) Baso % (Auto) Absolute Neuts (auto) Absolute Lymphs (auto) Total Counted Nucleated RBC % Diff Path Review Absolute Retic PT INR APTT Specimen Type ART Sample Site R Radial pH 7.13 L* Bicarbonate Actual 19.1 L POC Total CO2 21 Base Excess -10 L O2 Saturation 85 L O2 % 100 ABG pCO2 56.9 H ABG pO2 66 L Arnie Test POS Respiration Rate 14 O2 Delivery Device Vent Minute Volume 14.00 Vent Mode A-C Tidal Volume 450 POC PEEP 10 Blood Gas Notified Whom ED Blood Gas Notified Time 1020 Sodium Potassium Chloride Carbon Dioxide Anion Gap BUN Creatinine Estim Creat Clear Calc Est GFR (MDRD) Af Amer Est GFR (MDRD) Non-Af BUN/Creatinine Ratio Glucose Lactic Acid 12.4 H* Calcium Total Bilirubin AST ALT Alkaline Phosphatase Troponin I Total Protein Albumin Globulin Albumin/Globulin Ratio Serum , Qual NEGATIVE Urine Color Urine Clarity Urine pH Ur Specific [place] Urine Protein Urine Glucose (UA) Urine Ketones Urine Occult Blood Urine Nitrite Urine Bilirubin Urine Urobilinogen Ur Leukocyte Esterase Urine RBC Urine WBC Ur Squamous Epith Cells Urine Bacteria Urine Mucus 10/13/17 10/13/17 10:30 10:56 WBC RBC Hgb Hct MCV MCH MCHC RDW RDW Differential Plt Count MPV Immature Gran % (Auto) Neut % (Auto) Lymph % (Auto) [place] % (Auto) Eos % (Auto) Baso % (Auto) Absolute Neuts (auto) Absolute Lymphs (auto) Total Counted Nucleated RBC % Diff Path Review Absolute Retic PT INR APTT Specimen Type ART Sample Site R Radial pH 7.29 L Bicarbonate Actual 21.4 L POC Total CO2 23 Base Excess -5 L O2 Saturation 94 L O2 % 100 ABG pCO2 44.7 ABG pO2 79 Arnie Test NA Respiration Rate 16 O2 Delivery Device Vent Minute Volume Vent Mode A-C Tidal Volume 400 POC PEEP 14 Blood Gas Notified Whom ED Blood Gas Notified Time 1055 Sodium Potassium Chloride Carbon Dioxide Anion Gap BUN Creatinine Estim Creat Clear Calc Est GFR (MDRD) Af Amer Est GFR (MDRD) Non-Af BUN/Creatinine Ratio Glucose Lactic Acid Calcium Total Bilirubin AST ALT Alkaline Phosphatase Troponin I Total Protein Albumin Globulin Albumin/Globulin Ratio Serum , Qual Urine Color Yellow Urine Clarity Cloudy Urine pH 6.0 Ur Specific [place] 1.020 Urine Protein 500 H Urine Glucose (UA) Normal Urine Ketones 5 H Urine Occult Blood 250 H Urine Nitrite Negative Urine Bilirubin Negative Urine Urobilinogen 1 H Ur Leukocyte Esterase 25 H Urine RBC 10-25 SEEN Urine WBC 0-5 SEEN Ur Squamous Epith Cells 0-5 SEEN Urine Bacteria 1+ Urine Mucus 0 SEEN Assessment/Plan RECOMMENDATIONS: 1. Await transport to tertiary center for plasmapheresis 2. Agree with initiation of empiric antibiotics 3. Would not actively reverse anticoagulation 4. Continue with permissive hypercapnia ventilation 5. Initiate Argatroban if necessary for anticoagulation, not heparin IMPRESSIONS: 1. ARDS secondary to diffuse pulmonary hemorrhage secondary to antiphospholipid crisis Patient with previous presentations in the past that have been treated with plasmapheresis. There is no plasmapheresis available [facility]. ER is currently arranging for transportation to a tertiary type center. Patient is on low tidal volume ventilation with acceptable pH. Patient does have a significant lactic acidosis, likely secondary to oxygen tension. Patient is responding well to ventilation at this time. If sedated, vent rate will likely need to be increased. Attempting to avoid APRV as this will be very difficult to transport on. 2. Acute kidney injury Creatinine of 0.94 noted in May 2017. Unclear if this is secondary to ATN versus long-term issues. Patient was recently admitted at [facility] with a similar type presentation. Would avoid contrast if possible. 3. Anemia/thrombocytopenia/coagulopathy/history of heparin-induced thrombocytopenia Patient does have a history of heparin-induced thrombocytopenia, so all heparin products should be avoided. Patient's INR is currently therapeutic, but no obvious signs of acute blood loss anemia at this time. Continue to monitor blood counts daily with plans for transfusion if hemoglobin is less than 7 g/dL. 4. Personal history of antiphospholipid antibody syndrome Will need to watch INR closely. There are currently therapeutic. Patient should have plasmapheresis as soon as possible. 5. Personal history of DVT status post IVC filter/hypertension/obesity/ allergic rhinitis/GERD Complicates care, management, recovery and prognosis. Continue home medications as indicated. TIME: 60 minutes of critical care time spent addressing patient's ARDS, acute kidney injury, review of all data and collaboration with care team (10:30 AM to 11:30 AM)
[2017-10-13 14:13] LABS: Reflex Lactate? Y
[2017-10-16 14:33] LABS: Pathologist Review Reviewed
== END 2017-10-13 11:44 | disposition short-term general hospital (02) ==
PROVIDERS: Emergency Provider Emergency Medicine; Family Provider Internal Medicine; PCP Internal Medicine
DX: J96.00 Acute respiratory failure, unspecified whether with hypoxia or hypercapnia (principal); R04.89 Hemorrhage from other sites in respiratory passages; D75.82 Heparin induced thrombocytopenia (HIT); I12.9 Hypertensive chronic kidney disease with stage 1 through stage 4 chronic kidney disease, or unspecified chronic kidney disease; N18.3 Chronic kidney disease, stage 3 (moderate); D68.61 Antiphospholipid syndrome; R60.0 Localized edema; D64.9 Anemia, unspecified; D69.6 Thrombocytopenia, unspecified; E66.01 Morbid (severe) obesity due to excess calories; Z86.711 Personal history of pulmonary embolism; Z79.01 Long term (current) use of anticoagulants; Z79.52 Long term (current) use of systemic steroids; Z79.899 Other long term (current) drug therapy; Z86.718 Personal history of other venous thrombosis and embolism
CPT/HCPCS: 31500; 31720; 36415; 36591; 36592; 36600; 51702; 71045; 80053; 81001; 82803; 83605; 84484; 84703; 85025; 85610; 85730; 87040; 87070; 87077; 87086; 87088; 87186; 87205; 93005; 94002; 94770; 96361; 96374; 96375; 99251; 99285; 99291; J7030; J7040; A4216; G0463; J0330

== ENCOUNTER 2017-10-23 00:09 | Emergency (ER) | payer MEDICARE, SELFPAY ==
[2017-10-23 00:11] VITALS: BP 145/86; PULSE 104; RESP 18; TEMP 36.5; O2SAT 92; BMI 43.0
[2017-10-23 00:17] VITALS: BP 155/75; PULSE 104; RESP 18; O2SAT 96
--- NOTE | 2017-10-23 00:22 | CT_ITS ---
STUDY: CT ABDOMEN AND PELVIS WITHOUT CONTRAST REASON FOR EXAM: Female, 27 years old. Left-sided abdominal pain with history of antiphospholipid syndrome RADIATION DOSAGE (If Supplied By Facility): CTDIvol = ( 18.60 ) mGy, DLP = ( 1041.24 ) mGycm TECHNIQUE: Transaxial images were obtained from the dome of the diaphragm to the symphysis pubis without oral contrast, and without intravenous contrast. Sagittal and coronal images were reconstructed. Individualized dose optimization techniques were used for this CT. COMPARISON: 01/06/2017 FINDINGS: Bibasilar alveolar disease. The visualized portions of the heart are within normal limits. Normal liver. There are surgical clips in the gallbladder fossa consistent with a prior cholecystectomy. Normal pancreas. Normal bilateral adrenal glands. Normal right kidney. Normal visualized stomach. The appendix is visualized and appears normal. Stents are present in the inferior vena cava and both common iliac and external iliac veins. Extensive retroperitoneal hemorrhage is noted on the left. This collection measures 24.2 cm craniocaudal by 10.2 cm deep. This extends from the level of the pelvic inlet upwards to the left upper quadrant. There is displacement of the left kidney anteriorly. Blood products also extend along the surface of the spleen. No splenic lacerations are seen on this noncontrast study. The left kidney itself otherwise has an unremarkable appearance, without evidence of laceration or subcapsular blood. Smaller amounts of blood and fluid are also present in the central and left mesentery, especially inferiorly. Normal urinary bladder. Multiple abdominal wall varices. Diffuse anasarca. Normal osseous structures. CT/Abdomen/Pelvis without Cont IMPRESSION: Extensive retroperitoneal hemorrhage on the left, with mass effect on the left kidney. Less extensive blood products are also present along the surface of the spleen and in the mesentery. Bibasilar alveolar disease. N.B. : The above information has been verbally conveyed by Raciel Briggs MD to Jose Guadalupe Harley , Referring Physician, on 10/23/2017 01:40:37 (ET). Electronically Signed: Raciel Briggs MD at 1:40 EDT Tel , Service support , N.B. : The above information has been verbally conveyed by Raciel Briggs MD to Jose Guadalupe Harley , Referring Physician, on 10/23/2017 01:40:37 (ET).
[2017-10-23] MEDS: HYDROmorphone 1 MG/ML Syringe IV ×3 (00:33→02:42)
[2017-10-23] MEDS: 0.9% Normal Saline 1,000 ML 1000 ML IV (00:33)
[2017-10-23 00:53] LABS: Absolute Lymphocyte Count 0.75 X10^3/ul (0.83-4.51); Absolute Neutrophil Count 14.3 X10^3/uL (2.0-7.7); Basophil# 0.02 X10^3/uL; Basophil% 0.1 % (0-1); Lymphocyte # 0.75 X10^3/ul (4.0); Lymphocyte % 4.6 % (19-41); Mean Corpuscular Hgb 28.2 pg (27.0-32.0); Mean Corpuscular Volume 94.1 fL (81-99); Mean Platelet Vol. 10.6 fl (6.2-12.0); Monocyte# 0.98 X10^3/uL; Neutrophil # 14.25 X10^3/uL (2.7-7.7); Neutrophil % 87.3 % (47-70); Platelet Count 211 K/mm3 (150-450); RBC Distribution Width CV 19.1 % (11.6-14.6); RBC Distribution Width SD 62.1 fl (35.1-43.9); Red Blood Count 2.02 M/mm3 (4.2-5.4); White Blood Count 16.3 K/mm3 (4.4-11.0)
[2017-10-23 00:55] LABS: International Normalized Ratio 1.2; Prothrombin Time (Protime)PT. 15.5 SECONDS (11.7-14.9)
[2017-10-23 01:07] LABS: ALB/GLOB Ratio 1.5 RATIO (0.9-2.4); AST(SGOT) 13 U/L (15-37); Alanine Aminotransfer ALT/SGPT 14 U/L (13-56); Albumin, Serum 2.8 g/dL (3.2-5.0); Alkaline Phosphatase 43 U/L (45-117); BUN 63 mg/dL (7-18); BUN/Creat Ratio 43.2 RATIO (10-20); Calcium,Total 7.6 mg/dL (8.5-10.1); Chloride 100 mmol/L (98-107); Creatinine, Serum 1.46 mg/dL (0.55-1.02); EST Glomerular Filtration Rate 45 mL/min (>60); Est Glom Filt Rate - Afr Amer 55 mL/min (>60); Estimated Creatinine Clearance 47.46 ml/min; Globulin 1.9 g/dL (2.2-4.2); Glucose 185 mg/dL (74-106); Lipase 248 U/L (73-393); Potassium 4.1 mmol/L (3.5-5.1); Protein, Total 4.7 g/dL (6.4-8.2); Sodium Level 140 mmol/L (136-145)
[2017-10-23 01:08] LABS: Anion Gap 9 (5-15)
[2017-10-23 01:10] LABS: Differential Indicated SCAN CRITERIA MET; Hemoglobin 5.7 g/dl (12.0-15.0); POSITIVE COUNT YES; POSITIVE DIFFERENTIAL NO; POSITIVE MORPHOLOGY YES
--- NOTE | 2017-10-23 01:11 | ED.RN ---
hgb 5.[address] lab[address] dr rae aware
[2017-10-23 01:19] LABS: Pregnancy, Serum, hCG Quali. NEGATIVE Negative (0-9 Nonpreg)
[2017-10-23 01:35] LABS: Bacteria 0 SEEN /hpf (None Seen); Mucous, Urine 0 SEEN /hpf (<or=2+); Red Blood Cells-Urine 0 SEEN /hpf (0-5); Squamous Epithelial Cells - UA 0 SEEN /hpf (5-10)
[2017-10-23 01:51] LABS: Color, Urine Yellow (Yellow); Glucose, Dipstick Normal (Normal); Ketone-Dipstick Negative (Negative); Leukocyte Esterase-Dipstick 25 /ul (Negative); Nitrite-Dipstick Negative (Negative); Occult Blood-Urine 10 /ul (Negative); Protein-Dipstick 30 mg/dl (Negative); Specific Gravity, Urine 1.015 (1.002-1.030); Urine Bilirubin Dipstick Negative (Negative); Urine Clarity Clear (Clear); Urine Urobilinogen Normal (Normal)
[2017-10-23 01:54] LABS: Atypical Lymphocyte 2+ %; Differential Comment SCANNED
[2017-10-23 01:55] LABS: Hypochromasia 2+; Ovalocyte 2+; Polychromasia RARE; Schistocytes 1+
[2017-10-23 01:57] LABS: White Blood Cells 0-5 SEEN /hpf (0-5)
--- NOTE | 2017-10-23 02:07 | ED.RN ---
PT RINGS CALL HARRIS. PT REPORTS PAIN RETURNING IN ABDOMEN. PT TEARFUL. DR. MONTES INFORMED OF PT REQUEST FOR MORE PAIN MEDICATION. AWAITING FURTHER ORDERS FROM DR. WETZEL TO BE TRANSFERRED BACK TO [facility] WHERE SHE WAS DISCHARGED YESTERDAY AFTERNOON. THIS RN OFFERS PT EMOTIONAL SUPPORT. PT REFUSING PILLOWS OR ADJUSTING IN BED FOR FEAR OF INCREASED PAIN. THIS RN ADJUSTS LIGHTING FOR PT.
[2017-10-23 02:10] VITALS: BP 145/68; PULSE 100; RESP 25; O2SAT 95
--- NOTE | 2017-10-23 02:37 | ED.VISSUMM ---
- ER Visit Summary Date of Service: 10/23/17 Chief Complaint: Abdominal pain History of Present Illness: The patient is a 27 F with left-sided abdominal pain that started around 6 PM. The patient was just discharged early in the day from the [facility]. She had been admitted for alveolar hemorrhage as a sequelae of her antiphospholipid antibody syndrome. She takes Arixtra. No other GI symptoms except for maybe some constipation. No symptoms. No chest pain or shortness of breath. No trauma. Physical Examination: Slightly tachycardic at 104. Blood pressure stable. Afebrile. Heart tachycardic but regular. Lungs clear. Abdomen is diffusely tender over the left hemiabdomen. Skin is pale. Test Results: Hemoglobin 5.7 and white count 16.3. Creatinine slightly elevated BUN 63. INR 1.2. PTT 30. Urinalysis unremarkable. test negative. CT was performed and shows a retroperitoneal hematoma on the left, 24 cm x 10 cm deep. Emergency Department Course and Treatment: Patient received fluids and Dilaudid for pain. Hemoglobin was low, and 2 units of packed red cells were ordered. The patient remained hemodynamically stable. I spoke with the radiologist about the CT. It shows a large retroperitoneal hematoma. He could not identify a source. He thought it was likely coming from the muscle. No evidence of spleen or kidney injury or bleeding. Patient required multiple doses of Dilaudid for pain. Requested [facility] for admission. [facility] did not have ICU beds at the main campus. Patient will instead go to [place]. Patient has remained hemodynamically stable. Awaiting transfusion. Awaiting transport. Treatment Plan: As above Disposition: Transfer to [facility] Impression: 1. Retroperitoneal hematoma 2. Anemia This note was generated with [employer] dictation software. It may contain incorrect words, spelling, and punctuation that were not noted in review of the chart prior to signing ED Disposition - Plan for ED Patient: Chief Complaint: Abd Pain Referrals: Peyton López MD [Primary Care Provider] -
--- NOTE | 2017-10-23 02:42 | NURSING ---
THIS NURSE WAS PUSHING DILAUDID 1 MG THE PATIENT STATED I AM GOING TO NEED MORE PAIN MEDICATION THAN THIS. DR. MONTES WAS MADE AWARE OF THIS.
--- NOTE | 2017-10-23 02:53 | NURSING ---
CALLED [facility] FOR TRANSPORT AT 0250 BE HERE WITHIN 45 MINUTES
[2017-10-23 03:00] VITALS: BP 151/85; PULSE 99; RESP 16; TEMP 36.7; O2SAT 97
[2017-10-24 09:55] LABS: Pathologist Review Reviewed
== END 2017-10-23 03:58 | disposition short-term general hospital (02) ==
LOC: ED 00:32
PROVIDERS: Emergency Provider Emergency Medicine; Family Provider Internal Medicine; PCP Internal Medicine
DX: K66.1 Hemoperitoneum (principal); D64.9 Anemia, unspecified; D75.82 Heparin induced thrombocytopenia (HIT); K59.00 Constipation, unspecified; R00.0 Tachycardia, unspecified; Z79.52 Long term (current) use of systemic steroids; Z79.899 Other long term (current) drug therapy; Z87.01 Personal history of pneumonia (recurrent)
CPT/HCPCS: 74176; 80053; 81001; 83690; 84703; 85025; 85610; 85730; 86850; 86870; 86900; 86902; 86920; 86922; 96361; 96374; 96376; 99285; J7030; P9612; A4216

== ENCOUNTER → 2017-12-19 07:58 | Outpatient (CLI) | payer MEDICARE, SELFPAY ==
[2017-12-19 08:35] LABS: International Normalized Ratio 4.8
== END ==
PROVIDERS: PCP Internal Medicine; Visit Provider Nurse Practitioner Adult Health
DX: D75.82 Heparin induced thrombocytopenia (HIT) (principal); Z79.01 Long term (current) use of anticoagulants
CPT/HCPCS: 36591; 85610; A4216

== ENCOUNTER → 2017-12-22 08:02 | Outpatient (CLI) | payer MEDICARE, SELFPAY ==
[2017-12-22 08:28] LABS: Prothrombin Time (Protime)PT. 36.7 SECONDS (11.7-14.9)
[2017-12-22 08:59] LABS: International Normalized Ratio 3.7
== END ==
PROVIDERS: Family Provider Internal Medicine; PCP Internal Medicine; Visit Provider Nurse Practitioner Adult Health
DX: D75.82 Heparin induced thrombocytopenia (HIT) (principal); I82.91 Chronic embolism and thrombosis of unspecified vein; E31.0 Autoimmune polyglandular failure
CPT/HCPCS: 36592; 85610; A4216

== ENCOUNTER → 2017-12-29 07:54 | Outpatient (CLI) | payer MEDICARE, SELFPAY ==
[2017-12-29 08:34] LABS: International Normalized Ratio 1.5
== END ==
PROVIDERS: Family Provider Internal Medicine; PCP Internal Medicine; Visit Provider Nurse Practitioner Adult Health
DX: D75.82 Heparin induced thrombocytopenia (HIT) (principal); I82.409 Acute embolism and thrombosis of unspecified deep veins of unspecified lower extremity
CPT/HCPCS: 36592; 85610; A4216

== ENCOUNTER → 2018-01-02 07:45 | Outpatient (CLI) | payer MEDICARE, SELFPAY ==
[2018-01-02 08:34] LABS: International Normalized Ratio 2.6; Prothrombin Time (Protime)PT. 27.8 SECONDS (11.7-14.9)
== END ==
PROVIDERS: Family Provider Internal Medicine; PCP Internal Medicine; Visit Provider Nurse Practitioner Adult Health
DX: D75.82 Heparin induced thrombocytopenia (HIT) (principal); Z86.718 Personal history of other venous thrombosis and embolism
CPT/HCPCS: 36592; 85610; A4216

== ENCOUNTER → 2018-01-05 08:12 | Outpatient (CLI) | payer MEDICARE, SELFPAY ==
[2018-01-05 08:46] LABS: International Normalized Ratio 3.4; Prothrombin Time (Protime)PT. 34.6 SECONDS (11.7-14.9)
== END ==
PROVIDERS: Family Provider Internal Medicine; PCP Internal Medicine; Visit Provider Nurse Practitioner Adult Health
DX: D75.82 Heparin induced thrombocytopenia (HIT) (principal); Z86.718 Personal history of other venous thrombosis and embolism
CPT/HCPCS: 36592; 85610; A4216

== ENCOUNTER → 2018-01-12 07:54 | Outpatient (CLI) | payer MEDICARE, SELFPAY ==
[2018-01-12 08:32] LABS: International Normalized Ratio 2.2; Prothrombin Time (Protime)PT. 24.7 SECONDS (11.7-14.9)
== END ==
PROVIDERS: Family Provider Internal Medicine; PCP Internal Medicine; Visit Provider Nurse Practitioner Adult Health
DX: D75.82 Heparin induced thrombocytopenia (HIT) (principal); Z86.718 Personal history of other venous thrombosis and embolism
CPT/HCPCS: 36592; 85610; A4216

== ENCOUNTER → 2018-01-19 07:57 | Outpatient (CLI) | payer MEDICARE, SELFPAY ==
[2018-01-19 08:30] LABS: Prothrombin Time (Protime)PT. 39.9 SECONDS (11.7-14.9)
[2018-01-19 08:38] LABS: International Normalized Ratio 4.1
== END ==
PROVIDERS: Family Provider Internal Medicine; PCP Internal Medicine; Visit Provider Nurse Practitioner Adult Health
DX: D75.82 Heparin induced thrombocytopenia (HIT) (principal); Z86.718 Personal history of other venous thrombosis and embolism
CPT/HCPCS: 36592; 85610; A4216

== ENCOUNTER → 2018-04-05 07:44 | Outpatient (CLI) | payer MEDICARE, SELFPAY ==
[2018-04-05 08:34] LABS: International Normalized Ratio 1.7; Prothrombin Time (Protime)PT. 20.3 SECONDS (11.7-14.9)
== END ==
PROVIDERS: Family Provider Internal Medicine; PCP Internal Medicine; Visit Provider Nurse Practitioner Adult Health
DX: D75.82 Heparin induced thrombocytopenia (HIT) (principal); Z86.718 Personal history of other venous thrombosis and embolism
CPT/HCPCS: 36591; 85610; A4216

== ENCOUNTER → 2018-04-09 08:03 | Outpatient (CLI) | payer MEDICARE, SELFPAY ==
--- NOTE | 2018-04-09 08:47 | NURSING ---
DRESSING CHANGED TO RT CHEST TUNNELLED PICC LINE AND DUAL LUMEN RT CHEST CENTRAL LINE USED FOR PLASMA PHERESIS. AREA CLEANSED WITH CHLORAPREP AND BIO PATCH AND IV 3000 DRESSING APPLIED
[2018-04-09 11:20] LABS: International Normalized Ratio 1.5; Prothrombin Time (Protime)PT. 18.5 SECONDS (11.7-14.9)
== END ==
PROVIDERS: Family Provider Internal Medicine; PCP Internal Medicine; Referring Provider Nurse Practitioner Adult Health; Visit Provider Nurse Practitioner Adult Health
DX: D75.82 Heparin induced thrombocytopenia (HIT) (principal); Z86.718 Personal history of other venous thrombosis and embolism
CPT/HCPCS: 36592; 85610; A4216

== ENCOUNTER → 2018-04-12 07:49 | Outpatient (CLI) | payer MEDICARE, SELFPAY ==
[2018-04-12 08:21] LABS: International Normalized Ratio 2.1; Prothrombin Time (Protime)PT. 23.5 SECONDS (11.7-14.9)
== END ==
PROVIDERS: Family Provider Internal Medicine; PCP Internal Medicine; Referring Provider Nurse Practitioner Adult Health; Visit Provider Nurse Practitioner Adult Health
DX: D75.82 Heparin induced thrombocytopenia (HIT) (principal); Z86.718 Personal history of other venous thrombosis and embolism
CPT/HCPCS: 36592; 85610; A4216

== ENCOUNTER → 2018-04-20 07:55 | Outpatient (CLI) | payer MEDICARE, SELFPAY ==
[2018-04-20 08:45] LABS: International Normalized Ratio 2.2; Prothrombin Time (Protime)PT. 24.1 SECONDS (11.7-14.9)
== END ==
PROVIDERS: Family Provider Internal Medicine; PCP Internal Medicine; Referring Provider Nurse Practitioner Adult Health; Visit Provider Nurse Practitioner Adult Health
DX: D75.82 Heparin induced thrombocytopenia (HIT) (principal); Z86.718 Personal history of other venous thrombosis and embolism
CPT/HCPCS: 36592; 85610; A4216

== ENCOUNTER → 2018-04-23 07:57 | Outpatient (CLI) | payer MEDICARE, SELFPAY ==
[2018-04-23 08:46] LABS: International Normalized Ratio 1.7; Prothrombin Time (Protime)PT. 20.4 SECONDS (11.7-14.9)
== END ==
PROVIDERS: Family Provider Internal Medicine; PCP Internal Medicine; Referring Provider Nurse Practitioner Adult Health; Visit Provider Nurse Practitioner Adult Health
DX: D75.82 Heparin induced thrombocytopenia (HIT) (principal); Z86.718 Personal history of other venous thrombosis and embolism
CPT/HCPCS: 36592; 85610; A4216

== ENCOUNTER 2018-04-24 03:01 | Emergency (ER) | payer MEDICARE, SELFPAY ==
[2018-04-24 03:03] VITALS: BP 176/111; PULSE 84; RESP 17; TEMP 36.7; O2SAT 100; BMI 35.2
[2018-04-24 03:24] VITALS: BP 157/102; PULSE 78; RESP 17; O2SAT 100
--- NOTE | 2018-04-24 03:32 | ED.VIS.GEN ---
History of Present Illness Chief Complaint: Other, Pain/Inj Informant: Patient Onset: Hours - 7 Context: Gradual Onset - but quickly ramped up Timing: Continuous Quality: ache/pain Location: left calf Current Severity: Severe Maximum Severity: Severe Worsened by: moving, trying to walk Relieved by: remaining still Associated Symptoms: increase in chronic LLE nerve pain Narrative: Patient has a history of antiphospholipid antibody syndrome for which she gets regular plasmapheresis at [facility], has a problem with bleeding and clotting, is on Coumadin, has been intubated before for alveolar hemorrhage, has a Mediport because of difficult access. She states since yesterday, she has developed a severe pain in her left calf that is gradually worsened. In this area, she was diagnosed with calciphylaxis a month or 2 ago, when she had a muscle biopsy in her proximal left calf. With constant wound care, the skin in this area has had drastic improvement and looks symmetric with the other leg. She states she has chronic neuropathic pain in this extremity, and that is exacerbated to, all throughout it. She denies any fevers or systemic symptoms that are new. She denies any numbness in the extremities. She states she is having difficulty moving her left leg and foot, and is not sure if it is because of the pain or not, but does know that it has caused her to almost fall several times, which is why her significant other brought her to the emergency department. She states that whenever she is admitted, it is almost always at [facility] because that is where all of her doctors are. They live locally to here. She denies any recent injury. 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 (5) History of deep vein thrombosis (DVT) of lower extremity Status: Chronic (6) Hypertension Status: Chronic (7) Morbid obesity Status: Chronic (8) Steroid dependence Status: Chronic (9) HIT (heparin-induced thrombocytopenia) Status: Resolved Past Medical History - Allergies and Home Meds Allergies/Adverse Reactions: Allergies heparin Allergy (Verified 04/24/18 03:08) HIT rhubarb Allergy (Verified 04/24/18 03:08) Hives Gadolinium-MRI Contrast Medium [CONTRAST] Adverse Reaction (Verified 04/24/18 03:08) RENAL FAILURE Iodinated Contrast- Oral and IV Dye [CONTRASTS] Adverse Reaction (Verified 04/24/18 03:08) RENAL FAILURE rituximab Adverse Reaction (Verified 04/24/18 03:11) Other PT STATES WHEN SHE TOOK THE FULL DOSE OF THE MEDICATION IT INCREASED HER HEART ENZYMES. Primary Care Physician: Peyton López MD [Primary Care Provider] - Surgical History: - - IVC filter placement Smoking Status: Never smoker - Family History Maternal Family History: Reports: Cancer Paternal Family History: Reports: No pertinent history Review of Systems General: Denies: Chills, Fever Cardiovascular: Denies: Chest pain, Palpitations Respiratory: Denies: Dyspnea, Cough Gastrointestinal: Denies: Nausea, Vomiting, Hematochezia Genitourinary: Denies: Hematuria Musculoskeletal: Reports: Extremity Pain. Denies: Neck pain Skin: Reports: - - Erythematous bilateral lower extremities chronically, unchanged, and symmetric Neurological: Denies: Headache, Weakness, Parasthesia Hematologic: Reports: Easy bruising, Easy bleeding Physical Exam Vital Signs/Narrative: Vital Signs Temp Pulse Resp BP Pulse Ox 04/24/18 03:24 78 17 157/102 H 100 04/24/18 03:03 98.0 F 84 17 176/111 H 100 Inital Vital Signs reviewed: Yes General: Well nourished, Well developed, - - Well-appearing, NAD Head: Normocephalic, Atraumatic Eyes: Perrl, EOMI ENT: Moist mucous membranes, No rhinorrhea Cardiovascular: - - 1+ bilat DP pulses w/ brisk CR bilat Respiratory: No distress, - - Med port site benign, left upper chest Back: Nontender - Full range of motion, Normal Inspection Extremities: Tenderness - Left calf diffusely., Edema - 1+ bilateral lower extremity, symmetric, - - Palpable cord posterior to left calf biopsy site, patient states this is chronic. No more tender than the rest of her left calf. Skin: No rash, - - Blanching erythema bilateral lower extremities to the knees, symmetric. Biopsy site 1.5 cm in diameter medial proximal left calf, packed with gauze, no active discharge or signs of infection or necrotic tissue. No abnormal skin lesions left lower leg. Neurological: Alert, Oriented x3, Cranial nerves II-XII grossly intact, Normal Strength - Able to move distal left lower extremity without difficulty, limited proximally, is having pain in her calf with movement and increased nerve pain., Normal Sensation Psychological: Normal affect Diagnostic/Tx/Re-eval Laboratory Tests 04/24/18 04/24/18 Range/Units 03:40 03:40 WBC 5.9 (4.4-11.0) K/mm3 RBC 3.82 L (4.2-5.4) M/mm3 Hgb 10.7 L (12.0-15.0) g/dl Hct 34.6 L (37-47) % MCV 90.6 (81-99) fL MCH 28.0 (27.0-32.0) pg MCHC 30.9 L (32-36) g/gl RDW 15.5 H (11.6-14.6) % RDW Differential 51.4 H (35.1-43.9) fl Plt Count 163 (150-450) K/mm3 MPV 9.7 (6.2-12.0) fl Immature Gran % (Auto) 0.500 (0.0-0.9) % Neut % (Auto) 77.7 H (47-70) % Lymph % (Auto) 10.5 L (19-41) % Harrison % (Auto) 8.3 (0-10) % Eos % (Auto) 2.2 (0-5) % Baso % (Auto) 0.8 (0-1) % Absolute Neuts (auto) 4.6 (2.0-7.7) X10^3/uL Absolute Lymphs (auto) 0.62 L (0.83-4.51) X10^3/ul Total Counted Not Reportable Sodium 143 (136-145) mmol/L Potassium 3.7 (3.5-5.1) mmol/L Chloride 105 (98-107) mmol/L Carbon Dioxide 30.0 (21.0-32.0) mmol/L Anion Gap 8 (5-15) BUN 18 (7-18) mg/dL Creatinine 0.86 (0.55-1.02) mg/dL Estim Creat Clear Calc 79.84 ml/min Est GFR (MDRD) Af Amer 101 (>60) mL/min Est GFR (MDRD) Non-Af 83 (>60) mL/min BUN/Creatinine Ratio 21.1 H (10-20) RATIO Glucose 88 (74-106) mg/dL Calcium 9.1 (8.5-10.1) mg/dL - Medical Decision Making Patient had an INR drawn less than 24 hours ago, it was 1.7. I do not think there is utility in repeating that now. Her labs are reassuring with a white blood count of 5.9, no bands or significant left shift. After IV Dilaudid, she is feeling much better. Her compartments are all soft and I am not concerned about compartment syndrome, she is able to move her ankle okay without significant pain. My concern is whether she developed an acute DVT as a result of her INR being slightly subtherapeutic. She does not know if this feels similar to prior blood clots in the legs, which she has had, or not. She was also having spasms of pain, indicating that it could simply be muscular in etiology. However, given her health problems and history, I would be more concerned about an acute clot forming. She has a history of heparin-induced thrombocytopenia, and also had significant hemorrhage on the fondaparinux, and she states the only bridging agent that she has successfully been on is IV Angiomax. Given her low white blood count, I think the chances of pyomyositis or other acute lower extremity infection are lower, and the next test I would recommend is a venous ultrasound of her left lower extremity, which is not available at this time, 4 AM. I offered to have her observed here until 7-8, when ultrasound would be available. She prefers to do this. If negative for clot, the plan will be to discuss with her regional facilities specialist at [facility], Dr. Ríos. She could possibly be discharged with close outpatient follow-up. We do carry bivalirudin at this hospital. The patient states she will likely prefer to be admitted at [facility] if she needs admission, since all of her specialists are there and she is a complicated patient. Patient will be checked out to oncoming emergency physician, for disposition after venous duplex ultrasound. ED Disposition - Plan for ED Patient: Chief Complaint: Other, Pain/Inj Diagnosis: Left leg pain, Subtherapeutic international normalized ratio (INR) Referrals: Peyton López MD [Primary Care Provider] -
[2018-04-24] MEDS: HYDROmorphone 1 MG/ML Syringe 2 MG IV (03:41)
[2018-04-24 03:56] LABS: Absolute Lymphocyte Count 0.62 X10^3/ul (0.83-4.51); Absolute Neutrophil Count 4.6 X10^3/uL (2.0-7.7); Basophil# 0.05 X10^3/uL; Basophil% 0.8 % (0-1); Eosinophil# 0.13 X10^3/uL; Eosinophils% 2.2 % (0-5); Hematocrit 34.6 % (37-47); Hemoglobin 10.7 g/dl (12.0-15.0); Lymphocyte # 0.62 X10^3/ul (4.0); Lymphocyte % 10.5 % (19-41); Mean Corp Hgb Conc 30.9 g/gl (32-36); Mean Corpuscular Volume 90.6 fL (81-99); Mean Platelet Vol. 9.7 fl (6.2-12.0); Monocyte# 0.49 X10^3/uL; Monocyte% 8.3 % (0-10); Neutrophil # 4.59 X10^3/uL (2.7-7.7); Neutrophil % 77.7 % (47-70); POSITIVE COUNT NO; POSITIVE DIFFERENTIAL NO; POSITIVE MORPHOLOGY NO; Platelet Count 163 K/mm3 (150-450); RBC Distribution Width CV 15.5 % (11.6-14.6); RBC Distribution Width SD 51.4 fl (35.1-43.9); Red Blood Count 3.82 M/mm3 (4.2-5.4); White Blood Count 5.9 K/mm3 (4.4-11.0)
[2018-04-24 03:59] LABS: Anion Gap 8 (5-15); BUN 18 mg/dL (7-18); BUN/Creat Ratio 21.1 RATIO (10-20); Calcium,Total 9.1 mg/dL (8.5-10.1); Chloride 105 mmol/L (98-107); Creatinine, Serum 0.86 mg/dL (0.55-1.02); EST Glomerular Filtration Rate 83 mL/min (>60); Est Glom Filt Rate - Afr Amer 101 mL/min (>60); Estimated Creatinine Clearance 79.84 ml/min; Glucose 88 mg/dL (74-106); Potassium 3.7 mmol/L (3.5-5.1); Sodium Level 143 mmol/L (136-145)
--- NOTE | 2018-04-24 04:23 | VDLE_ITS ---
Reason For Study: pain RIGHT LEFT CFV is compressible, spontaneous, phasic, GSV is normal. competent and demonstrates normal CFV is compressible, spontaneous, phasic, augmentation. competent, and demonstrates normal Procedure augmentation. Exam performed portable in ED. PTV is compressible. The exam was diagnostic. LT PerV is compressible. A preliminary report was called and/or faxed Chronic vein wall thickening noted in the to Dr. Rider. FV, POP V, and T/P Trunk. Normal venous flow patterns noted. Interpretation Summary Left greater saphenous vein appears patent and compressible segmentally. Vein wall thickening of the left femoral, popliteal, and tibioperoneal trunk although with compressibility and normal flow patterns more suggestive of a chronic presentation. Clinical correlation would be appropriate. Normal flow patterns right common femoral vein. Ordering Physician: MELONY LUCAS Referring Physician: Magdalena Lewis Performed By: Giovanni Heaton RVGiacomo
[2018-04-24] MEDS: HYDROmorphone 1 MG/ML Syringe IV ×2 (06:26→09:06)
[2018-04-24 06:28] VITALS: BP 151/95; PULSE 75; RESP 17; O2SAT 99
[2018-04-24 08:00] VITALS: BP 149/88; PULSE 81; RESP 16; O2SAT 98
--- NOTE | 2018-04-24 09:34 | ED.DEP ---
ED Disposition - Plan for ED Patient: Chief Complaint: Other, Pain/Inj Diagnosis: Left leg pain, Subtherapeutic international normalized ratio (INR) Instructions: ED Muscle Pain Leg Cramps Prescriptions: Oxycodone HCl/Acetaminophen [Percocet 5/325] 1 tablet PO Q6H PRN PRN 5 Days #20 tablet PRN Reason: Pain Additional Instructions: Follow up with Dr. Ríos to be seen next Monday when you get plasmapharesis.
--- NOTE | 2018-04-24 09:37 | ED.VISSUMM ---
- ER Visit Summary Date of Service: 04/24/18 This patient was checked out to me by Dr. Morrison with ultrasound of the legs pending. Test Results: Ultrasound shows chronic clot, but no acute DVT. Emergency Department Course and Treatment: Patient was treated with Dilaudid for her pain. An [facility] report was obtained which shows that April 04 she had a prescription for methadone that was to last 1 week. She also had a prescription for Percocet which was the last 1 week. Treatment Plan: The patient was discussed withEugenia Ly, the nurse for Dr. Ríos her senior commissions analyst. She asked that we discharge her with prescription for 20 Percocet and have her see her senior commissions analyst in 6 days when she receives her plasmapheresis. She reviewed the notes and sees that she is Joey spoken with someone about how to change her Coumadin dosing. Return to the emergency department for any worsening symptoms. Disposition: To home in improved and stable condition. Impression: 1. Left leg pain. 2. Subtherapeutic INR. 3. History of antiphospholipid antibody. This note was generated with [employer] dictation software. It may contain incorrect words, spelling, and punctuation that were not noted in review of the chart prior to signing ED Disposition - Plan for ED Patient: Chief Complaint: Other, Pain/Inj Diagnosis: Left leg pain, Subtherapeutic international normalized ratio (INR) Instructions: ED Muscle Pain Leg Cramps Prescriptions: Oxycodone HCl/Acetaminophen [Percocet 5/325] 1 tablet PO Q6H PRN PRN 5 Days #20 tablet PRN Reason: Pain Referrals: Peyton López MD [Primary Care Provider] - Additional Instructions: Follow up with Dr. Ríos to be seen next Monday when you get plasmapharesis.
[2018-04-24 09:50] VITALS: BP 152/99; PULSE 92; RESP 16; O2SAT 99
== END 2018-04-24 09:50 | disposition home or self-care (01) ==
PROVIDERS: Emergency Provider Emergency Medicine; Family Provider Internal Medicine; PCP Internal Medicine
DX: M79.662 Pain in left lower leg (principal); D68.61 Antiphospholipid syndrome; E83.59 Other disorders of calcium metabolism; G89.29 Other chronic pain; D64.9 Anemia, unspecified; I12.9 Hypertensive chronic kidney disease with stage 1 through stage 4 chronic kidney disease, or unspecified chronic kidney disease; N18.3 Chronic kidney disease, stage 3 (moderate); E66.01 Morbid (severe) obesity due to excess calories; Z79.01 Long term (current) use of anticoagulants; Z79.52 Long term (current) use of systemic steroids; Z86.718 Personal history of other venous thrombosis and embolism
CPT/HCPCS: 80048; 85025; 93971; 96374; 96376; 99282; A4216

== ENCOUNTER → 2018-04-27 07:43 | Outpatient (CLI) | payer MEDICARE, SELFPAY ==
[2018-04-27 08:24] LABS: International Normalized Ratio 1.7; Prothrombin Time (Protime)PT. 19.9 SECONDS (11.7-14.9)
== END ==
PROVIDERS: Family Provider Internal Medicine; PCP Internal Medicine; Referring Provider Nurse Practitioner Adult Health; Visit Provider Nurse Practitioner Adult Health
DX: D75.82 Heparin induced thrombocytopenia (HIT) (principal); Z86.718 Personal history of other venous thrombosis and embolism
CPT/HCPCS: 36592; 85610; A4216

== ENCOUNTER → 2018-05-04 07:55 | Outpatient (CLI) | payer MEDICARE, SELFPAY ==
[2018-05-04 08:30] LABS: International Normalized Ratio 1.8; Prothrombin Time (Protime)PT. 21.1 SECONDS (11.7-14.9)
== END ==
PROVIDERS: Family Provider Internal Medicine; PCP Internal Medicine; Referring Provider Nurse Practitioner Adult Health; Visit Provider Nurse Practitioner Adult Health
DX: D75.82 Heparin induced thrombocytopenia (HIT) (principal); Z86.718 Personal history of other venous thrombosis and embolism
CPT/HCPCS: 36592; 85610; J7050

== ENCOUNTER → 2018-05-11 07:51 | Outpatient (CLI) | payer MEDICARE, SELFPAY ==
[2018-05-11 08:39] LABS: Prothrombin Time (Protime)PT. 31.2 SECONDS (11.7-14.9)
== END ==
PROVIDERS: Family Provider Internal Medicine; PCP Internal Medicine; Referring Provider Nurse Practitioner Adult Health; Visit Provider Nurse Practitioner Adult Health
DX: D75.82 Heparin induced thrombocytopenia (HIT) (principal); Z86.718 Personal history of other venous thrombosis and embolism
CPT/HCPCS: 36591; 85610; A4216

== ENCOUNTER → 2018-06-04 08:48 | Outpatient (CLI) | payer MEDICARE, SELFPAY ==
[2018-06-04 09:44] LABS: International Normalized Ratio 1.6; Prothrombin Time (Protime)PT. 19.3 SECONDS (11.7-14.9)
== END ==
PROVIDERS: Family Provider Internal Medicine; PCP Internal Medicine; Visit Provider Nurse Practitioner Adult Health
DX: D75.82 Heparin induced thrombocytopenia (HIT) (principal); Z86.718 Personal history of other venous thrombosis and embolism
CPT/HCPCS: 36592; 85610; A4216

== ENCOUNTER 2018-06-04 20:40 | Emergency (ER) | payer MEDICARE, SELFPAY ==
[2018-06-04 20:41] VITALS: BP 163/104; PULSE 89; RESP 18; TEMP 36.8; O2SAT 100; BMI 36.6
--- NOTE | 2018-06-04 20:50 | CT_ITS ---
STUDY: CT ABDOMEN AND PELVIS WITHOUT CONTRAST REASON FOR EXAM: Female, 28 years old. Left abdominal pain, recurring left peritoneal hematoma RADIATION DOSAGE (If Supplied By Facility): CTDIvol = ( 18.53 ) mGy, DLP = ( 953.79 ) mGycm TECHNIQUE: Transaxial images were obtained from the dome of the diaphragm to the symphysis pubis without oral contrast, and without intravenous contrast. Sagittal and coronal images were reconstructed. Individualized dose optimization techniques were used for this CT. COMPARISON: January 06, 2017 FINDINGS: The visualized lung bases are unremarkable. The visualized portions of the heart are within normal limits. Normal liver. Status post cholecystectomy. No significant dilatation of the extrahepatic biliary system. Normal spleen. Normal pancreas. Normal bilateral adrenal glands. Normal right kidney. There is anterior displacement of the left kidney by a left retroperitoneal hematoma. The hematoma measures approximately 10 x 8.2 cm. It extends 19 cm in the craniocaudal length. Normal visualized stomach. Normal small intestine. Normal colon. The appendix is visualized and appears normal. Normal abdominal aorta. Stent within the inferior vena cava extending into the external iliac veins. Prominent azygos vein. Normal retroperitoneum. Normal urinary bladder. Prominent subcutaneous varicosity of the abdominal wall. Normal osseous structures. CT/Abdomen/Pelvis without Cont IMPRESSION: Left retroperitoneal hematoma displacing the left kidney anteriorly. Prominent azygos vein. Stent within the IVC extending into the external iliac veins. Prominent subcutaneous varicosity. N.B. : The above information has been verbally conveyed by Hood Rice DO to Sang Littlejohn MD, on 06/04/2018 22:11:14 (ET). Electronically Signed: Hood Rice DO at 22:01 EST Tel [phone], Service support ,
--- NOTE | 2018-06-04 20:52 | ED.VISSUMM ---
- ER Visit Summary Date of Service: 06/04/18 Chief Complaint: Left flank pain History of Present Illness: The patient is a 28 F with history of antiphospholipid antibody who is on Coumadin and gets plasmapheresis through the [facility] presents to the emergency department with left flank pain. Patient has a history of retroperitoneal hematoma. She states that about 6 PM tonight, she had a rather sudden onset of pain. She states it feels the same as when she had a prior hematoma. She has been compliant with her Coumadin therapy. She denies any fevers or chills. She denies any shortness of breath. 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 She does get some pain from her left back down for her leg. She has had no problems with bowel or bladder. She denies any other systemic complaints. Physical Examination: Vital signs reviewed General: Well-nourished, well-developed Head: Normocephalic, atraumatic Eyes: Pupils equal and reactive, extraocular muscles intact Neck, supple, no lymphadenopathy Heart: Regular rate and rhythm Respiratory: No distress, clear bilaterally Abdomen: Soft, nontender, nondistended, no peritoneal signs Back: Nontender Extremities: Nontender, no edema, no cords Skin: Normal color no rash Neuro: Alert and oriented, no focal or lateralizing deficits Test Results: [] Emergency Department Course and Treatment: The patient's INR was done today and was subtherapeutic. IV was established. She was given fluids, analgesics, and antiemetics. Her pain was improved but then returned. The patient was sent for a stat CT of her abdomen. Prior to the read, I did review this and it does show retroperitoneal hematoma. Coumadin clinic was contacted. The patient's lab work is otherwise unremarkable. The patient was discussed with the transfer line and was accepted. She will be transferred to [facility] for definitive care of her recurrent retroperitoneal hematoma. Treatment Plan: [] Disposition: Transferred Impression: 1. Recurrent left retroperitoneal hematoma 2. History of antiphospholipid antibody syndrome This note was generated with [employer] software. It may contain incorrect words, spelling, and punctuation that were not noted in review of the chart prior to signing ED Disposition - Plan for ED Patient: Chief Complaint: Other, Pain/Inj Referrals: Peyton López MD [Primary Care Provider] -
[2018-06-04 21:00] VITALS: BP 158/97; PULSE 90; RESP 12; TEMP 37.3; O2SAT 100
[2018-06-04] MEDS: proMETHazine 25 MG/ML Syringe 6.25 MG IV (21:06)
[2018-06-04] MEDS: HYDROmorphone 1 MG/ML Syringe IV ×2 (21:06→21:57)
[2018-06-04 21:29] LABS: Absolute Lymphocyte Count 0.52 X10^3/ul (0.83-4.51); Basophil# 0.02 X10^3/uL; Basophil% 0.4 % (0-1); Hematocrit 32.1 % (37-47); Hemoglobin 10.2 g/dl (12.0-15.0); Lymphocyte # 0.52 X10^3/ul (4.0); Lymphocyte % 10.4 % (19-41); Mean Corp Hgb Conc 31.8 g/gl (32-36); Mean Corpuscular Hgb 28.3 pg (27.0-32.0); Mean Corpuscular Volume 89.2 fL (81-99); Mean Platelet Vol. 9.4 fl (6.2-12.0); Monocyte# 0.29 X10^3/uL; Monocyte% 5.8 % (0-10); Neutrophil # 3.95 X10^3/uL (2.7-7.7); Platelet Count 165 K/mm3 (150-450); RBC Distribution Width CV 15.3 % (11.6-14.6); RBC Distribution Width SD 49.9 fl (35.1-43.9)
[2018-06-04 21:33] LABS: ALB/GLOB Ratio 0.9 RATIO (0.9-2.4); AST(SGOT) 35 U/L (15-37); Alanine Aminotransfer ALT/SGPT 55 U/L (13-56); Albumin, Serum 3.2 g/dL (3.2-5.0); Alkaline Phosphatase 103 U/L (45-117); Anion Gap 5 (5-15); BUN 18 mg/dL (7-18); BUN/Creat Ratio 19.8 RATIO (10-20); Calcium,Total 9.2 mg/dL (8.5-10.1); Chloride 104 mmol/L (98-107); Creatinine, Serum 0.91 mg/dL (0.55-1.02); EST Glomerular Filtration Rate 78 mL/min (>60); Est Glom Filt Rate - Afr Amer 94 mL/min (>60); Estimated Creatinine Clearance 75.46 ml/min; Globulin 3.5 g/dL (2.2-4.2); Glucose 81 mg/dL (74-106); Potassium 4.1 mmol/L (3.5-5.1); Protein, Total 6.7 g/dL (6.4-8.2); Sodium Level 138 mmol/L (136-145)
[2018-06-04 21:34] LABS: Differential Indicated SCAN CRITERIA MET; International Normalized Ratio 1.6; Lactic Acid 1.3 mmol/L (0.4-2.0); POSITIVE COUNT NO; POSITIVE DIFFERENTIAL YES; POSITIVE MORPHOLOGY NO; Prothrombin Time (Protime)PT. 18.9 SECONDS (11.7-14.9)
[2018-06-04 22:10] LABS: Differential Comment SCANNED
[2018-06-04 22:21] LABS: Bacteria 0 SEEN /hpf (None Seen); Mucous, Urine 0 SEEN /hpf (<or=2+); Squamous Epithelial Cells - UA 0 SEEN /hpf (5-10); White Blood Cells 0 SEEN /hpf (0-5)
[2018-06-04 22:25] LABS: Color, Urine Yellow (Yellow); Glucose, Dipstick Normal (Normal); Ketone-Dipstick Negative (Negative); Leukocyte Esterase-Dipstick Negative /ul (Negative); Nitrite-Dipstick Negative (Negative); Occult Blood-Urine 25 /ul (Negative); Protein-Dipstick 30 mg/dl (Negative); Urine Bilirubin Dipstick Negative (Negative); Urine Clarity Clear (Clear); Urine Urobilinogen Normal (Normal)
--- NOTE | 2018-06-04 22:27 | ED.RN ---
PER [facility], PT IS ACCEPTED, WAITING FOR A BED TO OPEN, PT IS HIGH PRIORITY STATUS
[2018-06-04 22:32] LABS: Red Blood Cells-Urine 0-5 SEEN /hpf (0-5)
[2018-06-04 23:15] VITALS: BP 135/87; PULSE 90; RESP 20; O2SAT 99
[2018-06-04] MEDS: DiphenhydrAMINE 50 MG/ML Syringe 25 MG IV (23:25)
[2018-06-05] MEDS: HYDROmorphone 1 MG/ML Syringe IV (00:13)
[2018-06-05 00:16] VITALS: BP 137/87; PULSE 88; RESP 12; O2SAT 100
--- OUTSIDE RECORDS SUMMARY | 2018-07-17 17:23 | XMS RPT_ITS ---
:1990 Author Organization OHIP Support Name Relationship Address Phone JANE AIKEN/SILVER Unavailable [address] + [place] [address] D Unavailable Unavailable Unavailable MORTEZA CANNON Unavailable [address] + [place] [address] JANE AIKEN/SILVER Unavailable [address] + [place] [address] D Unavailable Unavailable Unavailable MORTEZA CANNON Unavailable [address] + [place] [address] NELLI JANE/SILVER Unavailable [address] + [place] [address] D Unavailable Unavailable Unavailable MORTEZA CANNON Unavailable [address] + [place] [address] NELLI JANE/SILVER Unavailable [address] + [place] [address] D Unavailable Unavailable Unavailable MORTEZA CANNON Unavailable [address] + [place] [address] JANE AIKEN/SILVER Unavailable [address] + [place] [address] D Unavailable Unavailable Unavailable MORTEZA CANNON Unavailable [address] + [place] [address] JANE AIKEN/SILVER Unavailable [address] + [place] [address] D Unavailable Unavailable Unavailable MORTEZA CANNON Unavailable [address] + [place] [address] BUTTERBAUGH, JANE/SILVER Unavailable [address] + [place] [address] D Unavailable Unavailable Unavailable MORTEZA CANNON Unavailable [address] + [place] [address] NELLI JANE/SILVER Unavailable [address] + [place] [address] D Unavailable Unavailable Unavailable MORTEZA CANNON Unavailable [address] + [place] [address] NELLI JANE/SILVER Unavailable [address] + [place] [address] D Unavailable Unavailable Unavailable MORTEZA CANNON Unavailable [address] + [place] [address] NELLI JANE/SILVER Unavailable [address] + [place] [address] D Unavailable Unavailable Unavailable MORTEZA CANNON Unavailable [address] + [place] [address] SHARONBAMELISSA JANE/SILVER Unavailable [address] + [place] [address] D Unavailable Unavailable Unavailable MORTEZA CANNON Unavailable [address] + [place] [address] BUTTERBAMELISSA JANE/SILVER Unavailable [address] + [place] [address] D Unavailable Unavailable Unavailable MORTEZA CANNON Unavailable [address] + [place] [address] BUTTERBAMELISSA JANE/SILVER Unavailable [address] + [place] [address] D Unavailable Unavailable Unavailable MORTEZA CANNON Unavailable [address] + [place] [address] BUTTERBAMELISSA, JANE/SILVER Unavailable [address] + [place] [address] D Unavailable Unavailable Unavailable MORTEZA CANNON Unavailable [address] + [place] [address] BUTTERBAMELISSA, JANE/SILVER Unavailable [address] + [place] [address] D Unavailable Unavailable Unavailable MORTEZA CANNON Unavailable [address] + [place] [address] SHARONBAMELISSA, JANE/SILVER Unavailable [address] + [place] [address] D Unavailable Unavailable Unavailable MORTEZA CANNON Unavailable [address] + [place] [address] SHARONBAMELISSA, JANE/SILVER Unavailable [address] + [place] [address] D Unavailable Unavailable Unavailable MORTEZA CANNON Unavailable [address] + [place] [address] NELLI, JANE/SILVER Unavailable [address] + [place] [address] D Unavailable Unavailable Unavailable MORTEZA CANNON Unavailable [address] + [place] [address] NELLI, JANE/SILVER Unavailable [address] + [place] [address] D Unavailable Unavailable Unavailable MORTEZA CANNON Unavailable [address] + [place] [address] NELLI, JANE/SILVER Unavailable [address] + [place] [address] D Unavailable Unavailable Unavailable MORTEZA CANNON Unavailable [address] + [place] [address] SHARONBAMELISSA, JANE/SILVER Unavailable [address] + [place] [address] D Unavailable Unavailable Unavailable MORTEZA CANNON Unavailable [address] + [place] [address] SHARONBAUGH, JANE/SILVER Unavailable [address] + [place] [address] D Unavailable Unavailable Unavailable MORTEZA CANNON Unavailable [address] + [place] [address] BUTTERBAMELISSA, JANE/SILVER Unavailable [address] + [place] [address] D Unavailable Unavailable Unavailable DAVIS MORTEZA Unavailable [address] + [place] [address] BUTTERBAUGH, JANE/SILVER Unavailable [address] + [place] [address] D Unavailable Unavailable Unavailable DAVIS MORTEZA Unavailable [address] + [place] [address] BUTTERBAUGH, JANE/SILVER Unavailable [address] + [place] [address] D Unavailable Unavailable Unavailable DAVISMORTEZA Unavailable [address] + [place] [address] BUTTERBAUGH, JANE/SILVER Unavailable [address] + [place] [address] D Unavailable Unavailable Unavailable DAVISMORTEZA Unavailable [address] + [place] [address] BUTTERBAUGH, JANE/SILVER Unavailable [address] + [place] [address] D Unavailable Unavailable Unavailable DAVISMORTEZA Unavailable [address] + [place] [address] BUTTERBAUGH, JANE/SILVER Unavailable [address] + [place] [address] D Unavailable Unavailable Unavailable DAVISMORTEZA Unavailable [address] + [place] [address] BUTTERBAUGH, JANE/SILVER Unavailable [address] + [place] [address] D Unavailable Unavailable Unavailable MORTEZA CANNON Unavailable [address] + [place] [address] BUTTERBAUGH, JANE/SILVER Unavailable [address] + [place] [address] D Unavailable Unavailable Unavailable MORTEZA CANNON Unavailable [address] + [place] [address] NELLI, JANE/SILVER Unavailable [address] + [place] [address] D Unavailable Unavailable Unavailable MORTEZA CANNON Unavailable [address] + [place] [address] SHARONBAMELISSA, JANE/SILVER Unavailable [address] + [place] [address] D Unavailable Unavailable Unavailable MORTEZA CANNON Unavailable [address] + [place] [address] NELLI, JANE/SILVER Unavailable [address] + [place] [address] D Unavailable Unavailable Unavailable MORTEZA CANNON Unavailable [address] + [place] [address] SHARONBAMELISSA, JANE/SILVER Unavailable [address] + [place] [address] D Unavailable Unavailable Unavailable MORTEZA CANNON Unavailable [address] + [place] [address] SHARONBAMELISSA, JANE/SILVER Unavailable [address] + [place] [address] D Unavailable Unavailable Unavailable MORTEZA CANNON Unavailable [address] + [place] [address] NELLI, JANE/SILVER Unavailable [address] + [place] [address] D Unavailable Unavailable Unavailable MORTEZA CANNON Unavailable [address] + [place] [address] SHARONBAMELISSA, JANE/SILVER Unavailable [address] + [place] [address] D Unavailable Unavailable Unavailable MORTEZA CANNON Unavailable [address] + [place] [address] BUTTERBAUGH, JANE/SILVER Unavailable [address] + [place] [address] D Unavailable Unavailable Unavailable DAVISMORTEZA Unavailable [address] + [place] [address] NELLI, JANE/SILVER Unavailable [address] + [place] [address] D Unavailable Unavailable Unavailable DAVISMORTEZA Unavailable [address] + [place] [address] NELLI, JANE/SILVER Unavailable [address] + [place] [address] D Unavailable Unavailable Unavailable DAVIS, MORTEZA Unavailable [address] + [place] [address] NELLI, JANE/SILVER Unavailable [address] + [place] [address] D Unavailable Unavailable Unavailable DAVISMORTEZA Unavailable [address] + [place] [address] NELLI, JANE/SILVER Unavailable [address] + [place] [address] D Unavailable Unavailable Unavailable DAVIS, MORTEZA Unavailable [address] + [place] [address] NELLI, JANE/SILVER Unavailable [address] + [place] [address] D Unavailable Unavailable Unavailable DAVISMORTEZA Unavailable [address] + [place] [address] SHARONJESSICAMELISSA JANE/SILVER Unavailable [address] + [place] [address] D Unavailable Unavailable Unavailable DAVISMORTEZA Unavailable [address] + [place] [address] SHARONBAMELISSA, JANE/SILVER Unavailable [address] + [place] [address] D Unavailable Unavailable Unavailable DAVIS, MORTEZA Unavailable [address] + [place] [address] SHARONBAMELISSA, JANE/SILVER Unavailable [address] + [place] [address] D Unavailable Unavailable Unavailable MORTEZA CANNON Unavailable [address] + [place] [address] SHARONJESSICAMELISSA JANE/SILVER Unavailable [address] + [place] [address] D Unavailable Unavailable Unavailable DAVISMORTEZA Stewart Unavailable [address] + [place] [address] SHARONSCOTT JANE/SILVER Unavailable [address] + [place] [address] D Unavailable Unavailable Unavailable MORTEZA CANNON Unavailable [address] + [place] [address] SHARONJESSICAMELISSA JANE/SILVER Unavailable [address] + [place] [address] D Unavailable Unavailable Unavailable DAVIS MORTEZA Unavailable [address] + [place] [address] NELLI JANE/SILVER Unavailable [address] + [place] [address] D Unavailable Unavailable Unavailable DAVIS MORTEZA Unavailable [address] + [place] [address] NELLI JANE/SILVER Unavailable [address] + [place] [address] D Unavailable Unavailable Unavailable DAVIS MORTEZA Unavailable [address] + [place] [address] SHARONSCOTT JANE/SILVER Unavailable [address] + [place] [address] D Unavailable Unavailable Unavailable DAVIS MORTEZA Unavailable [address] + [place] [address] Care Team Providers Name Role Phone LISSETH CLAUDIO Referring Unavailable KEM ANDUJAR Attending Unavailable KEM ANDUJAR Referring Unavailable LISSETH CLAUDIO Referring Unavailable PARAMBILGUILLAUME Referring Unavailable LISSETH CLAUDIO Referring Unavailable LISSETH CLAUDIO Referring Unavailable KEM ANDUJAR Attending Unavailable KEM ANDUJAR Referring Unavailable HEIDE, LISSETH S Referring Unavailable PROCK, LISSETH A Admitting Unavailable IGNACIO NOVAK (RES) Attending Unavailable PARAMBILGUILLAUME Referring Unavailable PARAMBIL, GUILLAUME Attending Unavailable PARAMBIL, GUILLAUME Referring Unavailable AKHIL HOWARD (DIRECTOR OF HOTEL) Attending Unavailable HEIDE, LISSETH S Referring Unavailable DOMINIQUE WRIGHT Attending Unavailable TONELLIJESSICAAUSTEN R Admitting Unavailable AMEENA MENDEZ Attending Unavailable HEIDE, LISSETH S Referring Unavailable ROS CHRISTIE Admitting Unavailable RANJAN MITCHELL Attending Unavailable ABOUSSOUAN, LOUTFI S Referring Unavailable ABOUSSOUAN, LOUTFI S Referring Unavailable HEIDE, LISSETH S Referring Unavailable HEIDE, LISSETH S Referring Unavailable ALAPPAN, NARENDRAKUMAR Admitting Unavailable BANDARZHOU Francisco Attending Unavailable ALAPPAN, NARENDRAKUMAR Admitting Unavailable PAULBRENDA CRYSTAL Attending Unavailable MARI NOVA (CY) Referring Unavailable ALAPPAN, NARENDRAKUMAR Admitting Unavailable TONESLAVAIAUSTEN R Attending Unavailable DAYSI GARCÍA Referring Unavailable ALAPPAN, NARENDRAKUMAR Admitting Unavailable TONELLIAUSTEN Attending Unavailable HEIDE, LISSETH S Referring Unavailable HEIDE, LISSETH S Referring Unavailable ALAPPAN, NARENDRAKUMAR Admitting Unavailable BANDARZHOU Francisco Attending Unavailable HEIDE, LISSETH S Referring Unavailable GAEL VIEIRA Admitting Unavailable GAEL VIEIRA Attending Unavailable JOSE NAVA Admitting Unavailable ROS WAYNE Attending Unavailable ABOUSSOUAN, LOUTFI S Referring Unavailable ABOUSSOUAN, LOUTFI S Referring Unavailable DAYSI BYNUM ([facility]) Referring Unavailable ABOUSSOUAN, LOUTFI S Referring Unavailable SWANOSN, ANDREW Referring Unavailable SWANSON, ANDREW Referring Unavailable HEIDE, LISSETH S Referring Unavailable ABRIL CHRISTINE Attending Unavailable KEM ANDUJAR Attending Unavailable HARRIET SAN Referring Unavailable PEYTON ROGERS Attending Unavailable ROS WAYNE Referring Unavailable HEIDE, LISSETH S Referring Unavailable KEM ANDUJAR Attending Unavailable KEM ANDUJAR Referring Unavailable HEIDE, LISSETH S Referring Unavailable KEM ANDUJAR Attending Unavailable MAGDALENA PARMAR (DIRECTOR OF HOTEL) Attending Unavailable CHANO JESSE, MAGDALENA (DIRECTOR OF HOTEL) Referring Unavailable CHANO JESSE, MAGDALENA (DIRECTOR OF HOTEL) Referring Unavailable CHANO JESSE, MAGDALENA (DIRECTOR OF HOTEL) Referring Unavailable HEIDE, LISSETH S Referring Unavailable EKWOK, KWESI K Admitting Unavailable ALEJANDRO MADDEN () Attending Unavailable CHANO MOLINA, MAGDALENA (DIRECTOR OF HOTEL) Referring Unavailable HEIDE, LISSETH S Referring Unavailable BRADSHAW, BIRD M Referring Unavailable BRADSHAW, BIRD M Referring Unavailable EKWOK, KWESI K Referring Unavailable EKWOK, KWESI K Referring Unavailable HEIDE, LISSETH S Referring Unavailable ALFREDALEXA Referring Unavailable HEIDE, LISSETH S Referring Unavailable HEIDE, LISSETH S Referring Unavailable YAMIL CHAVES (FEL) Referring Unavailable CHANO JESSE, MAGDALENA (DIRECTOR OF HOTEL) Referring Unavailable HEIDE, LISSETH S Referring Unavailable ABRIL CHRISTINE Attending Unavailable ALEJANDRO MADDEN () Referring Unavailable BRADSHAW, BIRD M Admitting Unavailable JUSTO CADET Attending Unavailable HEIDE, LISSETH S Referring Unavailable ISHAAN BYRNE Attending Unavailable MIKEY DICKERSON Referring Unavailable LINNETTE COLIN Attending Unavailable LINNETTE COLIN Referring Unavailable GANTA, PEYTON Attending Unavailable GANTA, PEYTON Referring Unavailable HEIDE, LISSETH S Referring Unavailable ETHAN, [place] Admitting Unavailable KYM MONTGOMERY) Attending Unavailable HEIDE, LISSETH S Referring Unavailable WILLARD MARTÍNEZ Admitting Unavailable KYM [place]) Attending Unavailable HEIDE, LISSETH S Referring Unavailable NEGRITO ULCERO (RES) Attending Unavailable GAEL SIMMONS Referring Unavailable GALDINO ZEE Attending Unavailable ETHAN [place] Admitting Unavailable ETHANESTELA Attending Unavailable HEIDE, LISSETH S Referring Unavailable SAPNA WYATT Admitting Unavailable SAPNA WYATT Attending Unavailable JASON ANCA Consulting Unavailable Ganta, Peyton Primary Care Unavailable Malaika Chinchilla Attending Unavailable Chano-Jesse, Magdalena Attending Unavailable Chano-Jesse, Magdalena Referring Unavailable Ganta, Peyton Primary Care Unavailable Ganta, Peyton Primary Care Unavailable MARY CHIRINOS Attending Unavailable MARY CHIRINOS Attending Unavailable Ganta, Peyton Primary Care Unavailable Ganta, Peyton Primary Care Unavailable MARY CHIRINOS Referring Unavailable MARY CHIRINOS Attending Unavailable Ganta, Peyton Primary Care Unavailable Magdalena Lewis Attending Unavailable Debbie, Magdalena Referring Unavailable Ganta, Peyton Primary Care Unavailable Chano-Jesse, Magdalena Attending Unavailable Chano-Jesse, [place]dalena Referring Unavailable MARY CHIRINOS Attending Unavailable Ganta, Peyton Primary Care Unavailable MARY CHIRINOS Referring Unavailable Ganta, Peyton Primary Care Unavailable Chano-Jesse, [place] Attending Unavailable Ganta, Peyton Primary Care Unavailable Chano-Jesse, [place] Attending Unavailable Chano-Jesse, Magdalena Referring Unavailable MARY CHIRINOS Attending Unavailable Ganta, Peyton Primary Care Unavailable MARY CHIRINOS Referring Unavailable Chano-Jesse, [place]dalena Attending Unavailable Chano-Jesse, Magdalena Referring Unavailable Ganta, Peyton Primary Care Unavailable Ganta, Peyton Primary Care Unavailable Chano-Jesse, [place]dalena Attending Unavailable Chano-Jesse, Magdalena Referring Unavailable Chano-Jesse, [place]dalena Attending Unavailable Chano-Jesse, Magdalena Referring Unavailable Ganta, Peyton Primary Care Unavailable Ganta, Peyton Primary Care Unavailable Chano-Jesse, [place] Attending Unavailable Chano-Jesse, Magdalena Referring Unavailable Chano-Jesse, [place] Attending Unavailable Chano-Jesse, [place]ena Referring Unavailable Ganta, Peyton Primary Care Unavailable Chano-Jesse, [place] Attending Unavailable Chano-Jesse, [place]dalena Referring Unavailable Ganta, Peyton Primary Care Unavailable Chano-Jesse, [place] Attending Unavailable Chano-Jesse, [place]dalena Referring Unavailable Ganta, Peyton Primary Care Unavailable Chano-Jesse, [place] Attending Unavailable Chano-Jesse, [place]dalena Referring Unavailable Ganta, Peyton Primary Care Unavailable Chano-Jesse, [place]ena Attending Unavailable Chano-Jesse, [place]dalena Referring Unavailable Ganta, Peyton Primary Care Unavailable Ganta, Peyton Primary Care Unavailable Lydia Harley Attending Unavailable Chano-Jesse, [place] Attending Unavailable Chano-Jesse, Magdalena Referring Unavailable Ganta, Peyton Primary Care Unavailable Ganta, Peyton Primary Care Unavailable Lydia Harley Attending Unavailable Mitch Buchanan Attending Unavailable Cricket Lydia Referring Unavailable Ganta, Peyton Referring Unavailable Ganta, Peyton Primary Care Unavailable Chano-Jesse, Magdalena Attending Unavailable Chano-Jesse, Magdalena Attending Unavailable Chano-Jesse, Magdalena Referring Unavailable Ganta, Peyton Primary Care Unavailable Chano-Jesse, [place]dalena Attending Unavailable Chano-Jesse, Magdalena Referring Unavailable Ganta, Peyton Primary Care Unavailable Chano-Jesse, [place] Attending Unavailable Chano-Jesse, [place]ena Referring Unavailable Ganta, Peyton Primary Care Unavailable Chano-Jesse, [place] Attending Unavailable Chano-Jesse, [place]dalena Referring Unavailable Ganta, Peyton Primary Care Unavailable Chano-Jesse, [place] Attending Unavailable Chano-Jesse, [place]dalena Attending Unavailable Chano-Jesse, Magdalena Referring Unavailable Ganta, Peyton Primary Care Unavailable Chano-Jesse, [place]dalena Attending Unavailable Chano-Jesse, [place]dalena Referring Unavailable Ganta, Peyton Primary Care Unavailable Chano-Jesse, [place] Attending Unavailable Ganta, Peyton Referring Unavailable Ganta, Peyton Primary Care Unavailable Chano-Jesse, [place] Attending Unavailable Chano-Jesse, Magdalena Referring Unavailable Ganta, Peyton Primary Care Unavailable Chano-Jesse, [place] Attending Unavailable Ganta, Peyton Referring Unavailable Ganta, Peyton Primary Care Unavailable Chano-Jesse, Magdalena Attending Unavailable Ganta, Peyton Primary Care Unavailable Chano-Jesse, [place]dalena Attending Unavailable Chano-Jesse, Magdalena Referring Unavailable Ganta, Peyton Primary Care Unavailable Chano-Jesse, [place]dalena Attending Unavailable Chano-Jesse, Magdalena Referring Unavailable Ganta, Peyton Primary Care Unavailable Chano-Jesse, Magdalena Attending Unavailable Chano-Jesse, Magdalena Referring Unavailable Ganta, Peyton Primary Care Unavailable Chano-Jesse, Magdalena Attending Unavailable Chano-Jesse, [place]dalena Referring Unavailable Ganta, Peyton Primary Care Unavailable Chano-Jesse, [place] Attending Unavailable Chano-Jesse, [place]ena Referring Unavailable Ganta, Peyton Primary Care Unavailable Ganta, Peyton Primary Care Unavailable WILFRED LUCAS Attending Unavailable Chano-Jesse, [place] Attending Unavailable Chano-Jesse, [place]dalena Referring Unavailable Ganta, Peyton Primary Care Unavailable Chano-Jesse, Magdalena Attending Unavailable Chano-Jesse, [place]dalena Referring Unavailable Ganta, Peyton Primary Care Unavailable Chano-Jesse, [place] Attending Unavailable Chano-Jesse, [place]dalena Referring Unavailable Ganta, Peyton Primary Care Unavailable Ros Nam Attending Unavailable WILFRED LUCAS Referring Unavailable Chano-Jesse, [place] Attending Unavailable Ganta, Peyton Primary Care Unavailable Ganta, Peyton Primary Care Unavailable Fany Littlejohn Attending Unavailable Chano-Jesse, [place]dal[place] Attending Unavailable Chano-Jesse, [place]dal[place] Referring Unavailable Ganta, Peyton Primary Care Unavailable Ganta, Peyton Primary Care Unavailable WILFRED LUCAS Attending Unavailable Chano-Jesse, [place] Attending Unavailable Chano-Jesse, [place]dalena Referring Unavailable Ganta, Peyton Primary Care Unavailable Chano-Jesse, Magdalena Attending Unavailable Chano-Jesse, [place] Referring Unavailable Ganta, Peyton Primary Care Unavailable PROBLEMS PROBLEMS DATE TYPE CONDITION / CODE ATTENDING STATUS SOURCE 06/22/2018 Active 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 Clinic Main part of left lower [place] leg with fat layer Repository exposed / L97.922(ICD-10) 06/06/2018 Active Hemoperitoneum / KYM MONTGOMERY Active [facility] K66.1(ICD-10) () Clinic Main [place] Repository 06/06/2018 Active Other disorders of [facility] KYM Active [facility] calcium metabolism / () Clinic Main E83.59(ICD-10) [place] Repository 06/06/2018 Active Obesity, unspecified VALENTINA, KYM Active [facility] / E66.9(ICD-10) () Clinic Main [place] Repository 05/14/2018 Active Pain in right leg / KYM MONTGOMERY Active [facility] M79.604(ICD-10) () Clinic Main [place] Repository 05/14/2018 Active Other disturbances of [facility] Active [place] skin sensation / () Clinic Main R20.8(ICD-10) [place] Repository 10/23/2017 Active Hemorrhage, not KALI, ISHAAN Active [facility] elsewhere classified Clinic Main / R58(ICD-10) [place] Repository 05/06/2018 Active Unspecified abdominal KALIISHAAN Torres Active [facility] pain / R10.9(ICD-10) Clinic Main [place] Repository 04/28/2018 Active Nausea with vomiting, CHICHI, Active [facility] unspecified / VARALAKSHMI Clinic Main R11.2(ICD-10) [place] Repository 05/23/2018 Unknown M79.606 - Pain in WILFRED LUCAS Active [facility] leg, unspecified / [facility] M79.606(ICD-10) Hospital Repository 05/21/2018 Unknown M79.662 - Pain in Ros Nam Active [facility] left lower leg / [facility] M79.662(ICD-10) Hospital Repository 04/03/2018 Active Unspecified open ALEJANDRO MADDEN Active [facility] wound of abdominal () Clinic Main wall, unspecified [place] quadrant without Repository penetration into peritoneal cavity, sequela / S31.109S(ICD-10) 04/03/2018 Active Mild protein-calorie ALEJANDRO MADDEN Active [facility] malnutrition / () Clinic Main E44.1(ICD-10) [place] Repository 04/02/2018 Active Antiphospholipid ALEJANDRO MADDEN Active [facility] syndrome / () Clinic Main D68.61(ICD-10) [place] Repository 03/25/2018 Active 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) ALEJANDRO MADDEN Active [facility] use of anticoagulants () Clinic Main / Z79.01(ICD-10) [place] Repository 03/25/2018 Active Encounter for ALEJANDRO MADDEN Active [facility] therapeutic drug () Clinic Main level monitoring / [place] Z51.81(ICD-10) Repository 03/15/2018 Active Chronic kidney ALEJANDRO MADDEN Active [facility] disease, stage 3 () Clinic Main (moderate) / [place] N18.3(ICD-10) Repository 03/15/2018 Active 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 / () Clinic Main D68.59(ICD-10) [place] Repository 03/15/2018 Active Acute embolism and ALEJANDRO MADDEN Active [facility] thrombosis of () Clinic Main inferior vena cava / [place] I82.220(ICD-10) Repository 03/15/2018 Active Peripheral vascular ALEJANDRO MADDEN Active [place] disease, unspecified () Clinic Main / I73.9(ICD-10) [place] Repository 03/11/2018 Active Unspecified ALEJANDRO MADDEN Active [facility] protein-calorie () Clinic Main malnutrition / [place] E46(ICD-10) Repository 03/11/2018 Active Personal history of ALEJANDRO MADDEN Active [facility] other venous () Clinic Main thrombosis and [place] embolism / Repository Z86.718(ICD-10) 03/11/2018 Active Unspecified ALEJANDRO MADDEN Active [facility] infectious disease / () Clinic Main B99.9(ICD-10) [place] Repository 03/11/2018 Active Cellulitis of other ALEJANDRO MADDEN Active [facility] sites / () Clinic Main L03.818(ICD-10) [place] Repository 03/11/2018 Active Morbid (severe) ALEJANDRO MADDEN Active [facility] obesity due to excess () Clinic Main calories / [place] E66.01(ICD-10) Repository 03/10/2018 Active 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) / [place] D75.82(ICD-10) Repository 02/18/2018 Active Pain in left leg / ALEJANDRO MADDEN Active [place] M79.605(ICD-10) () Clinic Main [place] Repository 01/22/2018 Active Pain in leg, ALEJANDRO MADDEN Active [facility] unspecified / () Clinic Main M79.606(ICD-10) [place] Repository 01/22/2018 Active Chronic kidney ALEJANDRO MADDEN Active [facility] disease, stage 4 (MD) Clinic Main (severe) / [place] N18.4(ICD-10) Repository 01/22/2018 Active 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 / (MD) Clinic [facility] I42.8(ICD-10) [place] Repository 01/22/2018 Active Acute kidney failure ALEJANDRO MADDEN Active [place] with tubular necrosis () Clinic Main / N17.0(ICD-10) [place] Repository 01/22/2018 Active Transfusion ALEJANDRO MADDEN Active [facility] associated () Clinic Main circulatory overload [place] / E87.71(ICD-10) Repository 01/22/2018 Active Sepsis, unspecified ALEJANDRO MADDEN Active [place] organism / () Clinic [facility] A41.9(ICD-10) [place] Repository 01/22/2018 Active Severe sepsis with ALEJANDRO MADDEN Active [facility] septic shock / () Clinic [facility] R65.21(ICD-10) [place] Repository 01/22/2018 Active Shock, unspecified / ALEJANDRO MADDEN Active [facility] R57.9(ICD-10) () Clinic Main [place] Repository 01/22/2018 Active Cellulitis of left ALEJANDRO MADDEN Active [place] lower limb / () [facility] L03.116(ICD-10) [place] Repository 01/22/2018 Active Hypo-osmolality and ALEJANDRO MADDEN Active [place] hyponatremia / () Clinic [facility] E87.1(ICD-10) [place] Repository 01/22/2018 Active Other disorders of ALEJANDRO MADDEN Active [place] phosphorus metabolism () Clinic Main / E83.39(ICD-10) [place] Repository 01/22/2018 Active Cutaneous abscess of ALEJANDRO MADDEN Active [place] left lower limb / () Clinic [facility] L02.416(ICD-10) [place] Repository 01/22/2018 Active Chronic systolic ALEJANDRO MADDEN Active [place] (congestive) heart () Clinic [facility] failure / [place] I50.22(ICD-10) Repository 01/22/2018 Active Disorder of NA Active [place] pigmentation, Clinic Main unspecified / [place] L81.9(ICD-10) Repository 01/22/2018 Active Anesthesia of skin / NA Active [place] R20.0(ICD-10) [facility] Main [place] Repository 01/22/2018 Active Paresthesia of skin / NA Active [place] R20.2(ICD-10) [facility] Main [place] Repository 01/12/2018 Unknown 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 Debbie, Active [facility] (current) use of [facility] anticoagulants / Hospital Z79.01(ICD-10) Repository 01/05/2018 Unknown D68.61 - Debbie, Active [facility] Antiphospholipid [facility] syndrome / Hospital D68.61(ICD-10) Repository 12/15/2017 Active Unspecified ROS WAYNE Active [place] atherosclerosis of [facility] Main [place] arteries of [place] extremities, Repository unspecified extremity / I70.209(ICD-10) 12/15/2017 Active Abnormal coagulation ROS WAYNE Active [place] profile / Clinic Main R79.1(ICD-10) [place] Repository 12/15/2017 Active Personal history of ROS WAYNE Active [place] diseases of the blood Clinic Main and blood-forming [place] organs and certain Repository disorders involving the immune mechanism / Z86.2(ICD-10) 12/15/2017 Active Shortness of breath / ROS WAYNE Active [facility] R06.02(ICD-10) Clinic Main [place] Repository 12/01/2017 Active Left lower quadrant ROS WAYNE Active [place] pain / R10.32(ICD-10) Clinic Main [place] Repository 12/04/2017 Active Pneumonia, ROS WAYNE Active [place] unspecified organism Clinic Main / J18.9(ICD-10) [place] Repository 12/04/2017 Active Secondary ROS WAYNE Active [place] hypertension, Clinic Main unspecified / [place] I15.9(ICD-10) Repository 12/04/2017 Active Other reduced ROS WAYNE Active [place] mobility / Clinic Main Z74.09(ICD-10) [place] Repository 12/04/2017 Active Pneumonia due to ROS WAYNE Active [place] methicillin [facility] Main susceptible [place] Staphylococcus aureus Repository / J15.211(ICD-10) 12/04/2017 Active Pneumonia due to ROS WAYNE Active [place] hemophilus influenzae Clinic Main / J14(ICD-10) [place] Repository 12/04/2017 Active Personal history of ROS WAYNE Jaimie [facility] other infectious and Clinic Main parasitic diseases / [place] Z86.19(ICD-10) Repository 12/01/2017 Active Other symptoms and BANDAR, ZHOU [facility] signs involving the Clinic Main musculoskeletal [place] system / Repository R29.898(ICD-10) 12/01/2017 Active Pneumonia due to BANDAR, ZHOU [facility] other gram-negative Clinic Main bacteria / [place] J15.6(ICD-10) Repository 12/01/2017 Active Hemoptysis / BANDAR, ZHOU [facility] R04.2(ICD-10) Clinic Main [place] Repository 12/01/2017 Active Acute kidney failure, BANDAR, ZHOU [facility] unspecified / Clinic [facility] N17.9(ICD-10) [place] Repository 10/23/2017 Active Acute posthemorrhagic BANDAR, ZHOU [facility] anemia / D62(ICD-10) Clinic Main [place] Repository 10/25/2017 Active Thrombocytopenia, BANDAR, ZHOU [facility] unspecified / Clinic Main D69.6(ICD-10) [place] Repository 10/25/2017 Active Dependence on renal BANDAR, ZHOU [facility] dialysis / Clinic Main Z99.2(ICD-10) [place] Repository 10/25/2017 Active Renovascular BANDAR, ZHOU [facility] hypertension / Clinic [facility] I15.0(ICD-10) [place] Repository 10/25/2017 Active Polyneuropathy in BANDAR, ZHOU [facility] diseases classified Clinic Main elsewhere / [place] G63(ICD-10) Repository 10/25/2017 Active Generalized edema / BANDAR, ZHOU [facility] R60.1(ICD-10) Clinic Main [place] Repository 10/25/2017 Active Other malaise / BANDAR, ZHOU [facility] R53.81(ICD-10) Clinic Main [place] Repository 10/25/2017 Active Unsteadiness on feet BANDAR, ZHOU Bass / R26.81(ICD-10) Clinic Main [place] Repository 10/25/2017 Active Other specified BANDAR, ZHOU [facility] disorders of muscle / Clinic Main M62.89(ICD-10) [place] Repository 10/25/2017 Active Low back pain / BANDAR, ZHOU [facility] M54.5(ICD-10) Clinic Main [place] Repository 10/25/2017 Active Lymphedema, not BANDARZHOU Francisco Active [place] elsewhere classified Clinic Main / I89.0(ICD-10) [place] Repository 10/23/2017 Active Acute embolism and EDMUNDOSAPNA Active [place] thrombosis of Clinic Other unspecified deep [place] veins of unspecified Repository lower extremity / I82.409(ICD-10) 10/23/2017 Active Unspecified diastolic SAPNA WYATT Active [place] (congestive) heart Clinic Other failure / [place] I50.30(ICD-10) Repository 10/22/2017 Active Embolism and RANJAN MITCHELL Active [place]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 Main vein / I82.3(ICD-10) [place] Repository 10/22/2017 Active Hemorrhage from other JANICE MITCHELLIT Active [facility] sites in respiratory Clinic Main passages / [place] R04.89(ICD-10) Repository 10/13/2017 Active Other chest pain / RANJAN MITCHELL Active [facility] R07.89(ICD-10) Clinic Main [place] Repository 10/13/2017 Active Foot drop, left foot RANJAN MITCHELL Active [facility] / M21.372(ICD-10) Clinic Main [place] Repository 10/13/2017 Active Mononeuropathy, RANJAN MITCHELL Active [facility] unspecified / Clinic Main G58.9(ICD-10) [place] Repository 10/24/2017 Unknown R04.89 - Hemorrhage Dewayne Mitch Active [facility] from other sites in Community respiratory passages Hospital / R04.89(ICD-10) Repository 10/24/2017 Unknown J80 - Acute Dewayne, Mitch Active [facility] respiratory distress Community syndrome / Hospital J80(ICD-10) Repository 10/24/2017 Unknown N17.9 - Acute kidney Dewayne, Mitch Active [facility] failure, unspecified Community / N17.9(ICD-10) Hospital Repository 10/24/2017 Unknown D64.9 - Anemia, Dewayne, Mitch Active [facility] unspecified / Community D64.9(ICD-10) Hospital Repository 10/24/2017 Unknown D69.6 - Dewayne, Mitch Active [facility] Thrombocytopenia, Community unspecified / Hospital D69.6(ICD-10) Repository 10/24/2017 Unknown Z86.718 - Personal Dewayne, Mitch Active [facility] history of other Community venous thrombosis and Hospital embolism / Repository Z86.718(ICD-10) 10/24/2017 Unknown I10 - Essential Mitch Buchanan Active [facility] (primary) Community hypertension / Hospital I10(ICD-10) Repository 10/24/2017 Unknown E66.01 - Morbid Mitch Buchanan Active [facility] (severe) obesity due Community to excess calories / Hospital E66.01(ICD-10) Repository 10/24/2017 Unknown J30.9 - Allergic Mitch Buchanan Active [facility] rhinitis, unspecified Community / J30.9(ICD-10) Hospital Repository 10/24/2017 Unknown K21.9 - Mitch Buchanan Active [facility] Gastro-esophageal Community reflux disease Hospital without esophagitis / Repository K21.9(ICD-10) 10/05/2017 Active Dysuria / ANDREA, AMEENA Active [facility] R30.0(ICD-10) Clinic Main [place] Repository 08/28/2017 Active Systemic inflammatory ANDREA, AMEENA Active [facility] response syndrome Clinic [facility] (sirs) of [place] non-infectious origin Repository without acute organ dysfunction / R65.10(ICD-10) 03/12/2017 Active Pulmonary ANDREA, AMEENA Active [facility] hypertension, Clinic Main unspecified / [place] I27.20(ICD-10) Repository 03/12/2017 Active Acute and chronic ANDREA, AMEENA Active [facility] respiratory failure Clinic Main with hypoxia / [place] J96.21(ICD-10) Repository 09/29/2017 Active Hypoxemia / ANDREA, AMEENA Active [facility] R09.02(ICD-10) Clinic Main [place] Repository 09/29/2017 Active Acute respiratory ANDREA, AMEENA Active [facility] failure with hypoxia Clinic Main / J96.01(ICD-10) [place] Repository 09/29/2017 Active Essential (primary) ANDREA, AMEENA Active [facility] hypertension / Clinic Main I10(ICD-10) [place] Repository 09/29/2017 Active Polyneuropathy, ANDREA, AMEENA Active [facility] unspecified / Clinic Main G62.9(ICD-10) [place] Repository 08/29/2017 Active Bacteremia / IGNACIO NOVAK Active [facility] R78.81(ICD-10) (RES) Clinic Main [place] Repository 08/28/2017 Active Generalized skin SCARLETIGNACIO Active [facility] eruption due to drugs (RES) Clinic Main and medicaments taken [place] internally / Repository L27.0(ICD-10) 08/28/2017 Active Sepsis due to SCARLETIGNACIO RAMIREZ Active [place] Enterococcus / (RES) Clinic Main A41.81(ICD-10) [place] Repository 08/27/2017 Active Unspecified severe SCARLETIGNACIO RAMIREZ Active [place] protein-calorie (RES) Clinic Main malnutrition / [place] E43(ICD-10) Repository 08/25/2017 Active Other pancytopenia / SCARLETIGNACIO RAMIREZ Active [place] D61.818(ICD-10) (RES) Clinic Main [place] Repository 08/25/2017 Active Fever, unspecified / SCARLETIGNACIO RAMIREZ Active [place] R50.9(ICD-10) (RES) Clinic Main [place] Repository 08/25/2017 Active Enterocolitis due to SCARLETIGNACIO RAMIREZ Active [place] Clostridium (RES) Clinic Main difficile, recurrent [place] / A04.71(ICD-10) Repository 08/25/2017 Active Unspecified SCARLETIGNACIO RAMIREZ Active [place] streptococcus as the (RES) Clinic Main cause of diseases [place] classified elsewhere Repository / B95.5(ICD-10) 08/25/2017 Active Enterocolitis due to SCARLET, IGNACIO Active [place] Clostridium (RES) Clinic Main difficile, not [place] specified as Repository recurrent / A04.72(ICD-10) 08/25/2017 Active Fever presenting with IGNACIO NOVAK Active [facility] conditions classified (RES) Clinic Main elsewhere / [place] R50.81(ICD-10) Repository 08/25/2017 Active Other specified SCARLETIGNACIO RAMIREZ Active [place] health status / (RES) Clinic Main Z78.9(ICD-10) [place] Repository 07/19/2017 Active Unknown / NA Active [facility] UNK(Unknown) Clinic Main [place] Repository 06/05/2018 Unknown D75.82 - Heparin MARY CHIRINOS Active [facility] induced [facility] (HIT) / Repository D75.82(ICD-10) PROCEDURES PROCEDURES No Procedure Records FoundRESULTS RESULTS EMERGENCY DEPARTMENT Observed: 06/20/2018 Status: F Source: PASS [facility]ST[facility] SUMMARY 12:38 AM [facility] REPOSITORY [facility] Medical Records Department [address] [place] [address] Emergency Department Summary 06/19/18 2225 MR#: [id number] Acct: [id number] Name: PALOMA CANNON #: [id number] : 1990 28 From: Malaika Chinchilla MD PCP: Pyeton Rogers MD Status: DEP ER - ER Visit Summary Date of Service: 06/19/18 Chief Complaint: left leg pain History of Present Illness: The patient is a 28 F with multiple medical problems, including antiphospholipid syndrome, chronic kidney disease stage III, history of DVTs, hip, temporary dialysis with 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 Her pain is located on the medial leg from the ankle to the mid thigh. Patient takes Tylenol for her leg pain, which she has had for several months. She has occasions of breakthrough severe pain such as tonight, pain is been worse since dinnertime. Patient has chronic leg numbness but no new changes in sensation other than the worsening of her chronic pain. Patient was recently hospitalized for a retroperitoneal hematoma that is stabilized. She is currently on Coumadin. Patient is in the process of transitioning from pain management to palliative care. Physical Examination: Vital signs: afebrile, hemodynamically stable, no hypoxia on room air General: well nourished, well developed, in no distress Skin: warm, dry, pallor HEENT: normocephalic and atraumatic; PERRL, EOMI, moist mucous membranes Cardiovascular: regular rate and rhythm Respiratory: No increased work of breathing MSK: Moves all extremities, no deformities, chronic skin changes to the lower legs below the knee, left calf greater in diameter than the right, tenderness to palpation, no palpable cords Neuro: Awake and alert, oriented 4. No facial droop, sensation and motor function intact and symmetric Test Results: Abnormal Lab Results PT 22.2 H INR 1.9 Medications Given Discontinued Medications Hydromorphone HCl (Dilaudid Inj) 1 mg IM X1 ONE Stop: 06/19/18 23:23 Oxycodone HCl (Oxyir) 10 mg PO X1 ONE Stop: 06/19/18 22:26 Last Admin: 06/19/18 22:40 Dose: 10 mg Emergency Department Course and Treatment: Patient states her INR was low on Monday. It was checked tonight and is 1.9, which is barely subtherapeutic. Patient's goal is between 2 and 3. She is not taking her Coumadin yet tonight and was encouraged to do so. Patient states that there is nothing different about her pain and concern for for another cause of it other than it is poorly controlled. Patient is pursuing palliative care to help with her chronic health issues and chronic pain. We discussed that I cannot prescribe her any opiate medication for home due to [place] state laws. However patient's pain was treated in the emergency department. She was given oxycodone. On reevaluation she stated it had not affected her pain at all and it normally requires Dilaudid for control. Patient was given 1 mg of IM Dilaudid. Patient's leg pain was consistent with her chronic leg pain, with no change other than poorly controlled, and thus much less concerning for DVT. Thus no further workup performed for DVT. Patient discharged home and is to follow-up with her doctors to manage her calciphylaxis as well as her palliative care consult. Treatment Plan: [] Disposition: [] Impression: Acute on chronic leg pain secondary to calciphylaxis This note was generated with [employer] dictation software. It may contain incorrect words, spelling, and punctuation that were not noted in review of the chart prior to signing ED Disposition - Plan for ED Patient: Disposition: Home or Assisted Living Chief Complaint: Lower Extremity Injury Instructions: ED Chronic Pain Management Referrals: Peyton Rogers MD [Primary Care Provider] - Doctor,Your [STAFF PHYSICIAN] - As soon as possible Additional Instructions: Please follow-up with your doctor as soon as possible for reevaluation of your calciphylaxis. Keep your appointment with your palliative care consult. Continue your Coumadin as prescribed. If you have any worsening of your condition or any new concerning symptoms, please return immediately to the emergency department for another evaluation. What to do if you have Problems For any increased pain, shortness of breath, bleeding, nausea or vomiting, chest pain, or any unexpected problems, contact your Primary Care Provider. Call [facility] ([phone]) or report to the closest Emergency Room. Call 911 if necessary. 06/20/18 0038 <Electronically signed by Malaika Chinchilla MD> Date Malaika Chinchilla MD Cosigner Signature (If Indicated): Date CC: Peyton Rogers MD DISCHARGE INSTRUCTION Observed: 06/20/2018 Status: F Source: MICAH 12:38 AM [facility] REPOSITORY [facility] Medical Records Department [address] [place] [address] Discharge Instruction 06/19/18 2323 MR#: [id number] Acct: [id number] Name: PALOMA CANNON Rep #: [id number] : 1990 28 From: Malaika Chinchilla MD PCP: Peyton Rogers MD Status: DEP ER ED Disposition - Plan for ED Patient: Disposition: Home or Assisted Living Chief Complaint: Lower Extremity Injury Instructions: ED Chronic Pain Management Referrals: Peyton Rogers MD [Primary Care Provider] - Doctor,Your [STAFF PHYSICIAN] - As soon as possible Additional Instructions: Please follow-up with your doctor as soon as possible for reevaluation of your calciphylaxis. Keep your appointment with your palliative care consult. Continue your Coumadin as prescribed. If you have any worsening of your condition or any new concerning symptoms, please return immediately to the emergency department for another evaluation. What to do if you have Problems For any increased pain, shortness of breath, bleeding, nausea or vomiting, chest pain, or any unexpected problems, contact your Primary Care Provider. Call [facility] ([phone]) or report to the closest Emergency Room. Call 911 if necessary. 06/20/18 0038 <Electronically signed by Malaika Chinchilla MD> Date Malaika Jenkinser Signature (If Indicated): Date CC: Peyton Rogers MD PROTHROMBIN TIME W/INR Collected: 06/19/2018 Status: F Source: [facility] 10:44 PM [facility] REPOSITORY TYPE CODE TESTS RESULT OUT OF RANGE REFERENCE UNITS LAB L300.4150 11.7-14.9 SECONDS High PROTIME 22.2 LAB L300.4200 Normal INR 1.9 Performed By: #### L300.3900 #### [facility] [address] [place], [address] PROTHROMBIN TIME W/INR Collected: 06/18/2018 Status: F Source: MICAH 8:23 AM [facility] REPOSITORY TYPE CODE TESTS RESULT OUT OF RANGE REFERENCE UNITS LAB L300.4150 11.7-14.9 SECONDS High PROTIME 19.2 LAB L300.4200 Normal INR 1.6 Performed By: #### [id number] #### [facility] [address] [facility] [place], [address] PROTHROMBIN TIME W/INR Collected: 06/15/2018 Status: F Source: PASS CHRISTIAN 8:49 AM [facility] REPOSITORY TYPE CODE TESTS RESULT OUT OF RANGE REFERENCE UNITS LAB L300.4150 11.7-14.9 SECONDS High PROTIME 20.9 LAB L300.4200 Normal INR 1.8 Performed By: #### [id number] #### [facility] [address] [place], [address] EMERGENCY DEPARTMENT Observed: 06/10/2018 Status: F Source: PASS CHRISTIAN SUMMARY 3:45 AM [facility] REPOSITORY [facility] Medical Records Department [address] [place] [id number] Emergency Department Summary 06/10/18 0143 MR#: [id number] Acct: [id number] Name: PALOMA CANNON Rep #: [id number] : 1990 28 From: Wilfred Lucas MD PCP: Peyton Rogers MD Status: REG ER History of Present Illness Chief Complaint: Back Informant: Patient Onset: Today Context: Gradual Onset Timing: Continuous Quality: Pain Location: Left low back Current Severity: Severe Maximum Severity: Severe Relieved by: Not by her oxycodone Associated Symptoms: Radiation down left lower extremity with numbness of left leg Narrative: Patient has had these symptoms for about 4 months, she associates it with a spontaneous retroperitoneal hematoma associated with her Coumadin, which she takes for antiphospholipid antibody syndrome. She gets plasmapheresis every other week, she is due for another treatment at [facility] in just over 24 hours from now. She presents now because her oxycodone has not really the chronic pain that she has in her back that she associates with the retroperitoneal hematoma. She states in [place], they have told her that it is putting pressure on some spinal nerves, giving her this sciatica symptoms down her left lower extremity. The quality of all of this is unchanged, she states that she has noticed in no sudden way that her pain in the back is just worse today. She denies any other new symptoms, including perineal/saddle anesthesia, weakness of the leg, bowel or bladder dysfunction. No abdominal pain, no lightheadedness or syncope. No fevers. No urinary symptoms that are new. 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 (5) History of deep vein thrombosis (DVT) of lower extremity Status: Chronic (6) Hypertension Status: Chronic (7) Morbid obesity Status: Chronic (8) Steroid dependence Status: Chronic (9) HIT (heparin-induced thrombocytopenia) Status: Resolved Past Medical History - Allergies and Home Meds Allergies/Adverse Reactions: Allergies heparin Allergy (Verified 06/10/18 01:02) HIT rhubarb Allergy (Verified 06/10/18 01:02) Hives Gadolinium-MRI Contrast Medium [CONTRAST] Adverse Reaction (Verified 06/10/18 01:02) RENAL FAILURE Iodinated Contrast- Oral and IV Dye [CONTRASTS] Adverse Reaction (Verified 06/10/18 01:02) RENAL FAILURE rituximab Adverse Reaction (Verified 06/10/18 01:02) Other PT STATES WHEN SHE TOOK THE FULL DOSE OF THE MEDICATION IT INCREASED HER HEART ENZYMES. Primary Care Physician: Peyton Rogers MD [Primary Care Provider] - Surgical History: - - IVC filter placement Smoking Status: Never smoker - Family History Maternal Family History: Reports: Cancer Paternal Family History: Reports: No pertinent history Review of Systems General: Denies: Chills, Fever, Sweats Eyes: Denies: Visual changes - bilaterally, Diplopia ENT: Denies: Bilateral ear pain, Sore throat Cardiovascular: Denies: Chest pain, Palpitations Respiratory: Denies: Dyspnea, Cough, Dyspnea on exertion Gastrointestinal: Denies: Abdominal pain, Nausea, Vomiting, Diarrhea, Melena, Hematochezia Genitourinary: Denies: Dysuria, Hematuria, Frequency Musculoskeletal: Reports: Back pain, Extremity Pain - LLE, like electricity. Denies: Neck pain, Swelling Skin: Denies: Rash, Wounds Neurological: Reports: Numbness - LLE. Denies: Headache, Weakness Physical Exam Vital Signs/Narrative: Vital Signs 06/10/18 01:02 98.5 F 92 18 172/84 H 100 Inital Vital Signs reviewed: Yes General: Well nourished, Well developed, - - well-appearing, nad Head: Normocephalic, Atraumatic Eyes: Perrl, EOMI ENT: Moist mucous membranes, No rhinorrhea Neck: Supple, Nontender Cardiovascular: Regular rate, Regular rhythm, No murmurs Respiratory: No distress, CTA bilaterally, Chest nontender Abdomen: Soft, Nontender, Nondistended, Normal bowel sounds, - - abd wall varicosities, nontender. no anupama, marcus fuller signs. Back: Normal Inspection, CVA tenderness - left only. Negative for: Spinal tenderness Extremities: Nontender, No edema, - - positive ipsilat LLE straight leg raise only Skin: Normal color, No rash Neurological: Alert, Oriented x3, Cranial nerves II-XII grossly intact, Normal Strength, Parasthesia - distal half of LLE Psychological: Normal affect Diagnostic/Tx/Re-eval Impressions Abdomen/Pelvis CT 06/10/18 01:42 IMPRESSION: 1. Left retroperitoneal hematoma, unchanged. No new or acute hemorrhage. No free fluid 2. Mild splenomegaly, unchanged. 3. IVC filter and additional chronic changes, as above. Individualized dose optimization techniques were used for this CT. at 0305 Reported and signed by: Zhou Lowe MD Electronically Signed: Zhou Lowe, at 3:03 EST Tel , Service support , 06/10/18 01:42 Abdomen/Pelvis without Cont [CT] Stat Laboratory Results WBC 4.5 RBC 3.59 L Hgb 10.0 L Hct 31.5 L MCV 87.7 MCH 27.9 MCHC 31.7 L - Medical Decision Making CT shows stable size of her retroperitoneal hematoma without any evidence of new bleeding. Her hemoglobin is essentially the same as it was several days ago. Her INR is 2.4, stable. She states when she was transferred to [place] several days ago, they evaluated her with some more images, and deemed that she was having no active bleeding and that her retroperitoneal hematoma has been stable and slowly shrinking since several months ago when it was diagnosed. At that time, she had bled down to a hemoglobin of about 5.7. I feel that she is certainly stable this time for pain control, she was given 2 separate doses of morphine and discharged home with close outpatient follow-up. Of note, she is scheduled in 24-36 hours to have a repeat CT to reevaluate the size of her retroperitoneal hematoma so she was sent with the CT and report that we did tonight. ED Disposition - Plan for ED Patient: Disposition: Home or Assisted Living Chief Complaint: Back Diagnosis: Acute exacerbation of chronic low back pain, Retroperitoneal hematoma, Antiphospholipid antibody syndrome Instructions: ED Neck Back Pain General Referrals: Peyton Rogers MD [Primary Care Provider] - 3-5 Days if not improving What to do if you have Problems For any increased pain, shortness of breath, bleeding, nausea or vomiting, chest pain, or any unexpected problems, contact your Primary Care Provider. Call [facility] ([phone]) or report to the closest Emergency Room. Call 911 if necessary. 06/10/18 0345 <Electronically signed by Wilfred Lucas MD> Date Wilfred Lucas MD Cosigner Signature (If Indicated): Date CC: Peyton Rogers MD CBC-COMPLETE BLOOD CNT Collected: 06/10/2018 Status: F Source: MICAH NO DIFF 2:00 AM [facility] REPOSITORY TYPE CODE TESTS RESULT OUT OF RANGE REFERENCE UNITS LAB L100.1000 4.4-11.0 K/mm3 Normal WBC 4.5 LAB L100.1200 4.2-5.4 M/mm3 Low RBC 3.59 LAB L100.1300 12.0-15.0 g/dl Low HGB 10.0 LAB L100.1400 37-47 % Low HCT 31.5 LAB L100.1500 81-99 fL Normal MCV 87.7 LAB L100.1600 27.0-32.0 pg Normal MCH 27.9 LAB L100.1700 32-36 g/gl Low MCHC 31.7 LAB L100.1810 11.6-14.6 % High RDW CV 14.8 LAB L100.1820 35.1-43.9 fl High RDW SD 48.0 LAB L100.1900 150-450 K/mm3 Low PLT 135 LAB L100.2000 6.2-12.0 fl Normal MPV 10.1 Performed By: #### L100.0500 #### [facility] [address] [place], [place], [address] PROTHROMBIN TIME W/INR Collected: 06/10/2018 Status: F Source: MICAH 2:00 AM [facility] REPOSITORY TYPE CODE TESTS RESULT OUT OF RANGE REFERENCE UNITS LAB L300.4150 11.7-14.9 SECONDS High PROTIME 26.6 LAB L300.4200 Normal INR 2.4 Performed By: #### L300.3900 #### [facility] [address] [place], [address] BASIC METABOLIC Collected: 06/10/2018 Status: F Source: MICAH PROFILE (BMP) 2:00 AM [facility] REPOSITORY TYPE CODE TESTS RESULT OUT OF RANGE REFERENCE UNITS LAB L501.0100 74-106 mg/dL High GLU 108 Result Comment: Fasting Glucose result from 100 to 125 mg/dL suggests IMPAIRED HOMEOSTASIS per A.D.A. criteria. Please note revised GLUCOSE reference range effective 2017. LAB L501.1000 7-18 mg/dL Normal BUN 12 LAB L501.1100 0.55-1.02 mg/dL Normal CREAT,SERUM 0.96 Result Comment: The validity of the calculated GFR AND GFRAA in patients over 70 years has not been determined. Clinical correlation is essential. LAB L501.1110 >60 mL/min Normal EST GFR 73 Result Comment: Non- GFR Calc LAB L501.1115 >60 mL/min Normal EST GFR - AA 89 Result Comment: GFR Calc LAB L501.1255 ml/min Normal Estimated CRCL 71.53 LAB L501.1300 10-20 RATIO Normal BUN/CRE 12.6 LAB L501.2200 8.5-10 mg/dL Normal .1 CA 9.7 LAB L501.5300 136-14 mmol/L Normal 5 NA 141 LAB L501.5600 3.5-5. mmol/L Normal 1 K 3.9 LAB L501.5900 98-107 mmol/L Normal CL 103 LAB L501.6100 21.0-3 mmol/L Normal 2.0 CO2 32.0 LAB L501.6200 5-15 Normal GAP 6 Performed By: #### L500.2500 #### [facility] [address] [facility] [place], [address] ABDOMEN/PELVIS WITHOUT Observed: 06/10/2018 Status: F Source: [facility] CONT 1:44 AM [facility] REPOSITORY [facility] Imaging Services [address] [place] [address] Abdomen/Pelvis without Cont MR#: [id number] Acct: [id number] Name: PALOMA CANNON Rep #: [id number] : 1990 F 28 From: Zhou Lowe MD PCP: Peyton Rogers MD Status: REG ER Study: Abdomen/Pelvis without Cont Date of Exam: 06/10/18 Exam# [id number] Ordering Dr: Wilfred Lucas MD HISTORY: LT SIDED ABDOMEN PAIN WITH SHOCKS DOWN HER LEGS,PT HAS REOCCURING RETROPERITONEAL HEMATOMA,[facility]CLOTTING DISORDER-ANTIPHOSPHOLIPID ANTIBODY SYNDROMESURGERY:CHOLECYSTECTOMY,ABDOMINAL STENT TECHNIQUE: Helically acquired images were obtained of the abdomen and pelvis without oral or IV contrast as per renal stone protocol. A radiation dose optimization technique was used for this scan. IV Contrast dosage and agent: None. Oral contrast: None. COMPARISON: 06/04/2018 FINDINGS: Redemonstration of a left retroperitoneal soft tissue hematoma with secondary anterior displacement of the left kidney. The hematoma appears stable in size and measures approximately 10 cm in AP dimension. No new areas of hemorrhage are seen. Lower thorax: No pleural effusion. Cholecystectomy with surgical clips in the gallbladder fossa. No biliary dilatation. The liver and pancreas show no CT abnormality. Mild splenomegaly, unchanged. The spleen measures approximately 13.5 cm in length. Anterior displacement of the left kidney. No renal or ureteral calculi and no hydronephrosis or hydroureter. The adrenal glands are not enlarged. Abdominal aorta is normal caliber. IVC filter and bilateral external iliac vein stents. No ascites or free fluid. GI tract: No obstruction. Normal appendix. Pelvis: Anteverted uterus which is normal in size. The pelvis shows no free fluid or lymphadenopathy. The urinary bladder is unremarkable. Ventral wall: Numerous superficial varicosities which are patent and without significant change compared to previous CT/Abdomen/Pelvis without Cont IMPRESSION: 1. Left retroperitoneal hematoma, unchanged. No new or acute hemorrhage. No free fluid 2. Mild splenomegaly, unchanged. 3. IVC filter and additional chronic changes, as above. Individualized dose optimization techniques were used for this CT. at 0305 Reported and signed by: Zhou Lowe MD Electronically Signed: Zhou Lowe, at 3:03 EST Tel , Service support , CC: WILFRED LUCAS MD; Peyton Rogers MD Practice Support Specialist: Signed PROTHROMBIN TIME W/INR Collected: 06/08/2018 Status: F Source: [facility] 10:30 AM [facility] REPOSITORY TYPE CODE TESTS RESULT OUT OF RANGE REFERENCE UNITS LAB L300.4150 11.7-14.9 SECONDS High PROTIME 22.2 LAB L300.4200 Normal INR 1.9 Performed By: #### L300.3900 #### [facility] [address] [place], [address] EMERGENCY DEPARTMENT Observed: 06/04/2018 Status: F Source: MICAH SUMMARY 11:12 PM [facility] REPOSITORY [facility] Medical Records Department [address] [place] [address] Emergency Department Summary 06/04/182051 MR#: [id number] Acct: [id number] Name: PALOMA CANNON Rep #: [id number] : 1990 28 From: Fany Littlejohn MD PCP: Peyton Rogers MD Status: REG ER - ER Visit Summary Date of Service: 06/04/18 Chief Complaint: Left flank pain History of Present Illness: The patient is a 28 F with history of antiphospholipid antibody who is on Coumadin and gets plasmapheresis through the [facility] presents to the emergency department with left flank pain. Patient has a history of retroperitoneal hematoma. She states that about 6 PM tonight, she had a rather sudden onset of pain. She states it feels the same as when she had a prior hematoma. She has been compliant with her Coumadin therapy. She denies any fevers or chills. She denies any shortness of breath. 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 She does get some pain from her left back down for her leg. She has had no problems with bowel or bladder. She denies any other systemic complaints. Physical Examination: Vital signs reviewed General: Well-nourished, well-developed Head: Normocephalic, atraumatic Eyes: Pupils equal and reactive, extraocular muscles intact Neck, supple, no lymphadenopathy Heart: Regular rate and rhythm Respiratory: No distress, clear bilaterally Abdomen: Soft, nontender, nondistended, no peritoneal signs Back: Nontender Extremities: Nontender, no edema, no cords Skin: Normal color no rash Neuro: Alert and oriented, no focal or lateralizing deficits Test Results: [] Emergency Department Course and Treatment: The patient's INR was done today and was subtherapeutic. IV was established. She was given fluids, analgesics, and antiemetics. Her pain was improved but then returned. The patient was sent for a stat CT of her abdomen. Prior to the read, I did review this and it does show retroperitoneal hematoma. Coumadin clinic was contacted. The patient's lab work is otherwise unremarkable. The patient was discussed with the transfer line and was accepted. She will be transferred to [facility] for definitive care of her recurrent retroperitoneal hematoma. Treatment Plan: [] Disposition: Transferred Impression: 1. Recurrent left retroperitoneal hematoma 2. History of antiphospholipid antibody syndrome This note was generated with [employer] dictation software. It may contain incorrect words, spelling, and punctuation that were not noted in review of the chart prior to signing ED Disposition - Plan for ED Patient: Chief Complaint: Other, Pain/Inj Referrals: Peyton Rogers MD [Primary Care Provider] - What to do if you have Problems For any increased pain, shortness of breath, bleeding, nausea or vomiting, chest pain, or any unexpected problems, contact your Primary Care Provider. Call [facility] ([phone]) or report to the closest Emergency Room. Call 911 if necessary. 06/04/18 5022 <Electronically signed by Fany Littlejohn MD> Date Fany Littlejohn MD Cosigner Signature (If Indicated): Date CC: Peyton Rogers MD URINALYSIS, COMPLETE Collected: 06/04/2018 Status: F Source: MICAH 10:15 PM [facility] REPOSITORY Order Comment: Order Date: 06/04/18 How was Urine Obtained? CLEAN CATCH TYPE CODE TESTS RESULT OUT OF RANGE REFERENCE UNITS LAB L400.3000 Yellow COLOR Normal Yellow LAB L400.3050 Clear Normal CLARITY Clear LAB L400.3200 Normal mg/dl Normal GLUCOSE, UR Normal LAB L400.3300 Negative mg/dL Normal BILIRUBIN URINE Negative LAB L400.3400 Negative mg/dl Normal KETONE UR Negative LAB L400.3465 1.002-1.030 Normal SP.GR. DIPSTX 1.020 LAB L400.3550 5.0 - 8.0 pH UR Normal 6.0 LAB L400.3600 Negative mg/dl High PROT 30 DIPSTX LAB L400.3700 Normal mg/dl Normal UROBILI Normal LAB L400.3750 Negative Normal NITRITE UR Negative LAB L400.3780 Negative /ul High 25 OCCULT BLOOD-UR LAB L400.3800 Negative /ul LEUK Normal ESTERASE Negative LAB L400.4050 0-5 /hpf WBC 0 Normal SEEN LAB L400.4100 0-5 /hpf Normal RBC-UA 0-5 SEEN LAB L400.4150 5-10 /hpf SQUAM 0 Normal EPI SEEN LAB L400.4300 None Seen /hpf 0 Normal BACTERIA SEEN LAB L400.4350 <or=2+ /hpf 0 Normal MUCUS, URINE SEEN Performed By: #### L400.0001 #### [facility] [address] [place], [address] COMPREHENSIVE METABOLIC Collected: 06/04/2018 Status: F Source: [facility] 8:59 PM [facility] REPOSITORY TYPE CODE TESTS RESULT OUT OF RANGE REFERENCE UNITS LAB L501.0100 74-106 mg/dL Normal GLU 81 Result Comment: Please note revised GLUCOSE reference range effective 2017. LAB L501.1000 7-18 mg/dL Normal BUN 18 LAB L501.1100 0.55-1.02 mg/dL Normal CREAT,SERUM 0.91 Result Comment: The validity of the calculated GFR AND GFRAA in patients over 70 years has not been determined. Clinical correlation is essential. LAB L501.1110 >60 mL/min Normal EST GFR 78 Result Comment: Non- GFR Calc LAB L501.1115 >60 mL/min Normal EST GFR - AA 94 Result Comment: GFR Calc LAB L501.1255 ml/min Normal Estimated CRCL 75.46 LAB L501.1300 10-20 RATIO Normal BUN/CRE 19.8 LAB L501.1500 6.4-8. g/dL Normal 2 T PROT 6.7 LAB L501.1800 3.2-5. g/dL Normal 0 ALB 3.2 LAB L501.1950 2.2-4. g/dL Normal 2 GLOB 3.5 LAB L501.2000 0.9-2. RATIO Normal 4 A/G 0.9 LAB L501.2200 8.5-10 mg/dL Normal .1 CA 9.2 LAB L501.4100 15-37 U/L Normal AST 35 LAB L501.4305 45-117 U/L Normal ALK P 103 LAB L501.4405 13-56 U/L Normal ALT 55 LAB L501.4600 0.20-1 mg/dL Normal .00 T BILI 0.40 LAB L501.5300 136-14 mmol/L Normal 5 NA 138 LAB L501.5600 3.5-5. mmol/L Normal 1 K 4.1 LAB L501.5900 98-107 mmol/L Normal CL 104 LAB L501.6100 21.0-3 mmol/L Normal 2.0 CO2 29.0 LAB L501.6200 5-15 Normal GAP 5 Performed By: #### L500.4050 #### [facility] [address] [place], [address] LACTIC ACID Collected: 06/04/2018 Status: F Source: [facility] 8:59 PM [facility] REPOSITORY Order Comment: Yes/No query for Sepsis Lactate Rule Y TYPE CODE TESTS RESULT OUT OF RANGE REFERENCE UNITS LAB L503.6005 0.4-2.0 mmol/L Normal LACTIC ACID 1.3 Performed By: #### L503.6005 #### [facility] [address] [place], [address] CBC W/DIFF, AUTOMATED Collected: 06/04/2018 Status: F Source: [facility] 8:59 PM [facility] REPOSITORY TYPE CODE TESTS RESULT OUT OF RANGE REFERENCE UNITS LAB L100.1000 4.4-11.0 K/mm3 Normal WBC 5.0 LAB L100.1200 4.2-5.4 M/mm3 Low RBC 3.60 LAB L100.1300 12.0-15.0 g/dl Low HGB 10.2 LAB L100.1400 37-47 % Low HCT 32.1 LAB L100.1500 81-99 fL Normal MCV 89.2 LAB L100.1600 27.0-32.0 pg Normal MCH 28.3 LAB L100.1700 32-36 g/gl Low MCHC 31.8 LAB L100.1810 11.6-14.6 % High RDW CV 15.3 LAB L100.1820 35.1-43.9 fl High RDW SD 49.9 LAB L100.1900 150-450 K/mm3 Normal PLT 165 LAB L100.2000 6.2-12.0 fl Normal MPV 9.4 LAB L100.2100 47-70 % High NEUT% 79.0 LAB L100.2200 19-41 % Low LY% 10.4 LAB L100.2300 0-10 % Normal MONO% 5.8 LAB L100.2400 0-5 % Normal EO% 4.0 LAB L100.2500 0-1 % Normal BASO% 0.4 LAB L100.2550 0.0-0.9 % Normal IM GRAN % 0.400 Result Comment: IG% - Immature Granulocytes (promyelocytes, myelocytes and metamyelocytes) > 1% indicates that a LEFT SHIFT is Present. LAB L100.2620 2.0-7.7 X10 3/uL Normal Absolute Neut 4.0 LAB L100.2720 0.83-4.51 X10 3/ul Low Absolute Lymph 0.52 LAB L100.4500 Normal SMEAR COMMENT SCANNED Result Comment: LYMPHOPENIA NOTED Performed By: #### L100.0100 #### [facility] [place], [address] PROTHROMBIN TIME W/INR Collected: 06/04/2018 Status: F Source: [facility] 8:59 PM [facility] REPOSITORY TYPE CODE TESTS RESULT OUT OF RANGE REFERENCE UNITS LAB L300.4150 11.7-14.9 SECONDS High PROTIME 18.9 LAB L300.4200 Normal INR 1.6 Performed By: #### L300.3900, L300.4310 #### [facility] [address] [facility] [place], [address] PARTIAL THROMBOPLAST Collected: 06/04/2018 Status: F Source: [facility] TIME 8:59 PM [facility] REPOSITORY TYPE CODE TESTS RESULT OUT OF REFERENCE UNITS RANGE LAB L300.4310 24.1-36.2 Seconds High PTT 51.0 Performed By: #### L300.3900, L300.4310 #### [facility] [address] [facility] [place], [address] ABDOMEN/PELVIS WITHOUT Observed: 06/04/2018 Status: F Source: [facility] CONT 8:51 PM [facility] REPOSITORY [facility] Imaging Services [address] [place] [address] Abdomen/Pelvis without Cont MR#: [id number] Acct: [id number] Name: PALOMA CANNON Rep #: [id number] : 1990 F 28 From: Hood Rice DO PCP: Peyton Rogers MD Status: REG ER Study: Abdomen/Pelvis without Cont Date of Exam: 06/04/18 Exam# [id number] Ordering Dr: Fany Littlejohn MD STUDY: CT ABDOMEN AND PELVIS WITHOUT CONTRAST REASON FOR EXAM: Female, 28 years old. Left abdominal pain, recurring left peritoneal hematoma RADIATION DOSAGE (If Supplied By Facility): CTDIvol = ( 18.53 ) mGy, DLP = ( 953.79 ) mGycm TECHNIQUE: Transaxial images were obtained from the dome of the diaphragm to the symphysis pubis without oral contrast, and without intravenous contrast. Sagittal and coronal images were reconstructed. Individualized dose optimization techniques were used for this CT. COMPARISON: January 06, 2017 FINDINGS: The visualized lung bases are unremarkable. The visualized portions of the heart are within normal limits. Normal liver. Status post cholecystectomy. No significant dilatation of the extrahepatic biliary system. Normal spleen. Normal pancreas. Normal bilateral adrenal glands. Normal right kidney. There is anterior displacement of the left kidney by a left retroperitoneal hematoma. The hematoma measures approximately 10 x 8.2 cm. It extends 19 cm in the craniocaudal length. Normal visualized stomach. Normal small intestine. Normal colon. The appendix is visualized and appears normal. Normal abdominal aorta. Stent within the inferior vena cava extending into the external iliac veins. Prominent azygos vein. Normal retroperitoneum. Normal urinary bladder. Prominent subcutaneous varicosity of the abdominal wall. Normal osseous structures. CT/Abdomen/Pelvis without Cont IMPRESSION: Left retroperitoneal hematoma displacing the left kidney anteriorly. Prominent azygos vein. Stent within the IVC extending into the external iliac veins. Prominent subcutaneous varicosity. N.B. : The above information has been verbally conveyed by Hood Rice DO to Fany Littlejohn MD, on 06/04/2018 22:11:14 (ET). Electronically Signed: Hood Rice DO at 22:01 EST Tel [phone], Service support , CC: Peyton Rogers MD; Fany Littlejohn MD Practice Support Specialist: Signed PROTHROMBIN TIME W/INR Collected: 06/04/2018 Status: F Source: MICAH 9:01 AM [facility] REPOSITORY TYPE CODE TESTS RESULT OUT OF RANGE REFERENCE UNITS LAB L300.4150 11.7-14.9 SECONDS High PROTIME 19.3 LAB L300.4200 Normal INR 1.6 Performed By: #### L300.3900 #### [facility] [address] [facility] [place], [address] PROTHROMBIN TIME W/INR Collected: 05/11/2018 Status: F Source: MICAH 8:01 AM [facility] REPOSITORY TYPE CODE TESTS RESULT OUT OF RANGE REFERENCE UNITS LAB L300.4150 11.7-14.9 SECONDS High PROTIME 31.2 LAB L300.4200 Normal INR 3.0 Performed By: #### L300.3900 #### [facility] [address] [place], [address] PROTHROMBIN TIME W/INR Collected: 05/04/2018 Status: F Source: MICAH 8:01 AM [facility] REPOSITORY TYPE CODE TESTS RESULT OUT OF RANGE REFERENCE UNITS LAB L300.4150 11.7-14.9 SECONDS High PROTIME 21.1 LAB L300.4200 Normal INR 1.8 Performed By: #### L300.3900 #### [facility] [address] [facility] [place], [address] EMERGENCY DEPARTMENT Observed: 04/29/2018 Status: F Source: MICAH SUMMARY 5:06 AM [facility] REPOSITORY [facility] Medical Records Department [address] [place] [address] Emergency Department Summary 04/24/18 0332 MR#: [id number] Acct: [id number] Name: PALOMA CANNON Rep #: [id number] : 1990 28 From: Wilfred Lucas MD PCP: Peyton Rogers MD Status: DEP ER History of Present Illness Chief Complaint: Other, Pain/Inj Informant: Patient Onset: Hours - 7 Context: Gradual Onset - but quickly ramped up Timing: Continuous Quality: ache/pain Location: left calf Current Severity: Severe Maximum Severity: Severe Worsened by: moving, trying to walk Relieved by: remaining still Associated Symptoms: increase in chronic LLE nerve pain Narrative: Patient has a history of antiphospholipid antibody syndrome for which she gets regular plasmapheresis at [facility], has a problem with bleeding and clotting, is on Coumadin, has been intubated before for alveolar hemorrhage, has a Mediport because of difficult access. She states since yesterday, she has developed a severe pain in her left calf that is gradually worsened. In this area, she was diagnosed with calciphylaxis a month or 2 ago, when she had a muscle biopsy in her proximal left calf. With constant wound care, the skin in this area has had drastic improvement and looks symmetric with the other leg. She states she has chronic neuropathic pain in this extremity, and that is exacerbated to, all throughout it. She denies any fevers or systemic symptoms that are new. She denies any numbness in the extremities. She states she is having difficulty moving her left leg and foot, and is not sure if it is because of the pain or not, but does know that it has caused her to almost fall several times, which is why her significant other brought her to the emergency department. She states that whenever she is admitted, it is almost always at [facility] because that is where all of her doctors are. They live locally to here. She denies any recent injury. 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 (5) History of deep vein thrombosis (DVT) of lower extremity Status: Chronic (6) Hypertension Status: Chronic (7) Morbid obesity Status: Chronic (8) Steroid dependence Status: Chronic (9) HIT (heparin-induced thrombocytopenia) Status: Resolved Past Medical History - Allergies and Home Meds Allergies/Adverse Reactions: Allergies heparin Allergy (Verified 04/24/18 03:08) HIT rhubarb Allergy (Verified 04/24/18 03:08) Hives Gadolinium-MRI Contrast Medium [CONTRAST] Adverse Reaction (Verified 04/24/18 03:08) RENAL FAILURE Iodinated Contrast- Oral and IV Dye [CONTRASTS] Adverse Reaction (Verified 04/24/18 03:08) RENAL FAILURE rituximab Adverse Reaction (Verified 04/24/18 03:11) Other PT STATES WHEN SHE TOOK THE FULL DOSE OF THE MEDICATION IT INCREASED HER HEART ENZYMES. Primary Care Physician: Peyton Rogers MD [Primary Care Provider] - Surgical History: - - IVC filter placement Smoking Status: Never smoker - Family History Maternal Family History: Reports: Cancer Paternal Family History: Reports: No pertinent history Review of Systems General: Denies: Chills, Fever Cardiovascular: Denies: Chest pain, Palpitations Respiratory: Denies: Dyspnea, Cough Gastrointestinal: Denies: Nausea, Vomiting, Hematochezia Genitourinary: Denies: Hematuria Musculoskeletal: Reports: Extremity Pain. Denies: Neck pain Skin: Reports: - - Erythematous bilateral lower extremities chronically, unchanged, and symmetric Neurological: Denies: Headache, Weakness, Parasthesia Hematologic: Reports: Easy bruising, Easy bleeding Physical Exam Vital Signs/Narrative: Vital Signs 04/24/18 03:24 78 17 157/102 H 100 04/24/18 03:03 98.0 F 84 17 176/111 H 100 Inital Vital Signs reviewed: Yes General: Well nourished, Well developed, - - Well-appearing, NAD Head: Normocephalic, Atraumatic Eyes: Perrl, EOMI ENT: Moist mucous membranes, No rhinorrhea Cardiovascular: - - 1+ bilat DP pulses w/ brisk CR bilat Respiratory: No distress, - - Med port site benign, left upper chest Back: Nontender - Full range of motion, Normal Inspection Extremities: Tenderness - Left calf diffusely., Edema - 1+ bilateral lower extremity, symmetric, - - Palpable cord posterior to left calf biopsy site, patient states this is chronic. No more tender than the rest of her left calf. Skin: No rash, - - Blanching erythema bilateral lower extremities to the knees, symmetric. Biopsy site 1.5 cm in diameter medial proximal left calf, packed with gauze, no active discharge or signs of infection or necrotic tissue. No abnormal skin lesions left lower leg. Neurological: Alert, Oriented x3, Cranial nerves II-XII grossly intact, Normal Strength - Able to move distal left lower extremity without difficulty, limited proximally, is having pain in her calf with movement and increased nerve pain., Normal Sensation Psychological: Normal affect Diagnostic/Tx/Re-eval Laboratory Tests WBC 5.9 (4.4-11.0) K/mm3 - Medical Decision Making Patient had an INR drawn less than 24 hours ago, it was 1.7. I do not think there is utility in repeating that now. Her labs are reassuring with a white blood count of 5.9, no bands or significant left shift. After IV Dilaudid, she is feeling much better. Her compartments are all soft and I am not concerned about compartment syndrome, she is able to move her ankle okay without significant pain. My concern is whether she developed an acute DVT as a result of her INR being slightly subtherapeutic. She does not know if this feels similar to prior blood clots in the legs, which she has had, or not. She was also having spasms of pain, indicating that it could simply be muscular in etiology. However, given her health problems and history, I would be more concerned about an acute clot forming. She has a history of heparin-induced thrombocytopenia, and also had significant hemorrhage on the fondaparinux, and she states the only bridging agent that she has successfully been on is IV Angiomax. Given her low white blood count, I think the chances of pyomyositis or other acute lower extremity infection are lower, and the next test I would recommend is a venous ultrasound of her left lower extremity, which is not available at this time, 4 AM. I offered to have her observed here until 7-8, when ultrasound would be available. She prefers to do this. If negative for clot, the plan will be to discuss with her academic support center director at [facility], Dr. Andujar. She could possibly be discharged with close outpatient follow-up. We do carry bivalirudin at this hospital. The patient states she will likely prefer to be admitted at [facility] if she needs admission, since all of her specialists are there and she is a complicated patient. Patient will be checked out to oncoming emergency physician, for disposition after venous duplex ultrasound. ED Disposition - Plan for ED Patient: Chief Complaint: Other, Pain/Inj Diagnosis: Left leg pain, Subtherapeutic international normalized ratio (INR) Referrals: Peyton Rogers MD [Primary Care Provider] - What to do if you have Problems For any increased pain, shortness of breath, bleeding, nausea or vomiting, chest pain, or any unexpected problems, contact your Primary Care Provider. Call [facility] ([phone]) or report to the closest Emergency Room. Call 911 if necessary. 04/29/18 0506 <Electronically signed by Wilfred Lucas MD> Date Wilfred Lucas MD Cosigner Signature (If Indicated): Date CC: Peyton Rogers MD PROTHROMBIN TIME W/INR Collected: 04/27/2018 Status: F Source: [place] 7:53 AM [facility] REPOSITORY Order Comment: Comments: [facility] FAX [phone] TYPE CODE TESTS RESULT OUT OF RANGE REFERENCE UNITS LAB L300.4150 11.7-14.9 SECONDS High PROTIME 19.9 LAB L300.4200 Normal INR 1.7 Performed By: #### L300.3900 #### [facility] [address] [place], [address] VENOUS DUPLEX LOWER Observed: 04/24/2018 Status: F Source: [place] EXTREMITY 5:30 PM [facility] REPOSITORY [facility] Cardiovascular Services [address] [place] [address] Venous Duplex US, Unilateral 04/24/18 0802 MR#: [id number] Acct: [id number] Name: PALOMA CANNON Rep #: [id number] : 1990 28 From: Ros Nam MD Attending Dr: Status: DEP ER Ordering Dr: Wilfred Lucas MD Date: 04/24/18 Location: ED Sex: F C Admitted: Reason For Study: pain RIGHT LEFT CFV is compressible, spontaneous, phasic, GSV is normal. competent and demonstrates normal CFV is compressible, spontaneous, phasic, augmentation. competent, and demonstrates normal Procedure augmentation. Exam performed portable in ED. PTV is compressible. The exam was diagnostic. LT PerV is compressible. A preliminary report was called and/or faxed Chronic vein wall thickening noted in the to Dr. Rider. FV, POP V, and T/P Trunk. Normal venous flow patterns noted. Interpretation Summary Left greater saphenous vein appears patent and compressible segmentally. Vein wall thickening of the left femoral, popliteal, and tibioperoneal trunk although with compressibility and normal flow patterns more suggestive of a chronic presentation. Clinical correlation would be appropriate. Normal flow patterns right common femoral vein. Ordering Physician: WILFRED LUCAS Referring Physician: Magdalena Lewis Performed By: Giovanni Heaton, T 04/24/181728 Date Ros Nam MD CC: WILFRED LUCAS MD; Peyton Rogers MD Date Dictated: 04/24/18801 Date Transcribed: 04/24/181728 Practice Support Specialist: Signed DISCHARGE INSTRUCTION Observed: 04/24/2018 Status: F Source: [place]AH 4:23 PM [facility] REPOSITORY [facility] Medical Records Department [address] [place] [address] Discharge Instruction 04/24/18 0934 MR#: [id number] Acct: [id number] Name: PALOMA CANNON Lauren Rep #: [id number] : 1990 28 From: Ignacio Rider MD PCP: Peyton Rogers MD Status: DEP ER ED Disposition - Plan for ED Patient: Chief Complaint: Other, Pain/Inj Diagnosis: Left leg pain, Subtherapeutic international normalized ratio (INR) Instructions: ED Muscle Pain Leg Cramps Prescriptions: Oxycodone HCl/Acetaminophen [Percocet 5/325] 1 tablet PO Q6H PRN PRN 5 Days #20 tablet PRN Reason: Pain Additional Instructions: Follow up with Dr. Andujar to be seen next Monday when you get plasmapharesis. What to do if you have Problems For any increased pain, shortness of breath, bleeding, nausea or vomiting, chest pain, or any unexpected problems, contact your Primary Care Provider. Call [facility] ([phone]) or report to the closest Emergency Room. Call 911 if necessary. 04/24/18 1623 <Electronically signed by Ignacio Rider MD> Date Ignacio Rider MD Cosigner Signature (If Indicated): Date CC: Peyton Rogers MD EMERGENCY DEPARTMENT Observed: 04/24/2018 Status: F Source: [place] SUMMARY 4:23 PM [facility] REPOSITORY [facility] Medical Records Department [address] [place] [address] Emergency Department Summary 04/24/18 0937 MR#: [id number] Acct: [id number] Name: PALOMA CANNON Rep #: [id number] : 1990 28 From: Ignacio Rider MD PCP: Peyton Rogers MD Status: DEP ER - ER Visit Summary Date of Service: 04/24/18 This patient was checked out to me by Dr. Morrison with ultrasound of the legs pending. Test Results: Ultrasound shows chronic clot, but no acute DVT. Emergency Department Course and Treatment: Patient was treated with Dilaudid for her pain. An OARRS report was obtained which shows that Natalie 25 she had a prescription for methadone that was to last 1 week. She also had a prescription for Percocet which was the last 1 week. Treatment Plan: The patient was discussed withEugenia Ly, the nurse for Dr. Andujar her academic support center director. She asked that we discharge her with prescription for 20 Percocet and have her see her academic support center director in 6 days when she receives her plasmapheresis. She reviewed the notes and sees that she is Joey spoken with someone about how to change her Coumadin dosing. Return to the emergency department for any worsening symptoms. Disposition: To home in improved and stable condition. Impression: 1. Left leg pain. 2. Subtherapeutic INR. 3. History of antiphospholipid antibody. This note was generated with [employer] software. It may contain incorrect words, spelling, and punctuation that were not noted in review of the chart prior to signing ED Disposition - Plan for ED Patient: Chief Complaint: Other, Pain/Inj Diagnosis: Left leg pain, Subtherapeutic international normalized ratio (INR) Instructions: ED Muscle Pain Leg Cramps Prescriptions: Oxycodone HCl/Acetaminophen [Percocet 5/325] 1 tablet PO Q6H PRN PRN 5 Days #20 tablet PRN Reason: Pain Referrals: Peyton Rogers MD [Primary Care Provider] - Additional Instructions: Follow up with Dr. Andujar to be seen next Monday when you get plasmapharesis. What to do if you have Problems For any increased pain, shortness of breath, bleeding, nausea or vomiting, chest pain, or any unexpected problems, contact your Primary Care Provider. Call [facility] ([phone]) or report to the closest Emergency Room. Call 911 if necessary. 04/24/18 9492 <Electronically signed by Ignacio Rider MD> Date Ignacio Rider MD Cosigner Signature (If Indicated): Date CC: Peyton Rogers MD CBC W/DIFF, AUTOMATED Collected: 04/24/2018 Status: F Source: [place] 3:40 AM [facility] REPOSITORY TYPE CODE TESTS RESULT OUT OF RANGE REFERENCE UNITS LAB L100.1000 4.4-11.0 K/mm3 Normal WBC 5.9 LAB L100.1200 4.2-5.4 M/mm3 Low RBC 3.82 LAB L100.1300 12.0-15.0 g/dl Low HGB 10.7 LAB L100.1400 37-47 % Low HCT 34.6 LAB L100.1500 81-99 fL Normal MCV 90.6 LAB L100.1600 27.0-32.0 pg Normal MCH 28.0 LAB L100.1700 32-36 g/gl Low MCHC 30.9 LAB L100.1810 11.6-14.6 % High RDW CV 15.5 LAB L100.1820 35.1-43.9 fl High RDW SD 51.4 LAB L100.1900 150-450 K/mm3 Normal PLT 163 LAB L100.2000 6.2-12.0 fl Normal MPV 9.7 LAB L100.2100 47-70 % High NEUT% 77.7 LAB L100.2200 19-41 % Low LY% 10.5 LAB L100.2300 0-10 % Normal MONO% 8.3 LAB L100.2400 0-5 % Normal EO% 2.2 LAB L100.2500 0-1 % Normal BASO% 0.8 LAB L100.2550 0.0-0.9 % Normal IM GRAN % 0.500 Result Comment: IG% - Immature Granulocytes (promyelocytes, myelocytes and metamyelocytes) > 1% indicates that a LEFT SHIFT is Present. LAB L100.2620 2.0-7.7 X10 3/uL Normal Absolute Neut 4.6 LAB L100.2720 0.83-4.51 X10 3/ul Low Absolute Lymph 0.62 Performed By: #### L100.0100 #### [facility] [address], [address] BASIC METABOLIC Collected: 04/24/2018 Status: F Source: [place] PROFILE (BMP) 3:40 AM [facility] REPOSITORY TYPE CODE TESTS RESULT OUT OF RANGE REFERENCE UNITS LAB L501.0100 74-106 mg/dL Normal GLU 88 Result Comment: Please note revised GLUCOSE reference range effective 2017. LAB L501.1000 7-18 mg/dL Normal BUN 18 LAB L501.1100 0.55-1.02 mg/dL Normal CREAT,SERUM 0.86 Result Comment: The validity of the calculated GFR AND GFRAA in patients over 70 years has not been determined. Clinical correlation is essential. LAB L501.1110 >60 mL/min Normal EST GFR 83 Result Comment: Non- GFR Calc LAB L501.1115 >60 mL/min Normal EST GFR - AA 101 Result Comment: GFR Calc LAB L501.1255 ml/min Normal Estimated CRCL 79.84 LAB L501.1300 10-20 RATIO High BUN/CRE 21.1 LAB L501.2200 8.5-10 mg/dL Normal .1 CA 9.1 LAB L501.5300 136-14 mmol/L Normal 5 NA 143 LAB L501.5600 3.5-5. mmol/L Normal 1 K 3.7 LAB L501.5900 98-107 mmol/L Normal CL 105 LAB L501.6100 21.0-3 mmol/L Normal 2.0 CO2 30.0 LAB L501.6200 5-15 Normal GAP 8 Performed By: #### L500.2500 #### [facility] [address] [place], [place], [address] PROTHROMBIN TIME W/INR Collected: 04/23/2018 Status: F Source: [place] 8:02 AM [facility] REPOSITORY TYPE CODE TESTS RESULT OUT OF RANGE REFERENCE UNITS LAB L300.4150 11.7-14.9 SECONDS High PROTIME 20.4 LAB L300.4200 Normal INR 1.7 Performed By: #### L300.3900 #### [facility] [address] [place], [address] PROTHROMBIN TIME W/INR Collected: 04/20/2018 Status: F Source: [place] 8:06 AM [facility] REPOSITORY TYPE CODE TESTS RESULT OUT OF RANGE REFERENCE UNITS LAB L300.4150 11.7-14.9 SECONDS High PROTIME 24.1 LAB L300.4200 Normal INR 2.2 Performed By: #### L300.3900 #### [facility] [address] [place], [address] PROTHROMBIN TIME W/INR Collected: 04/12/2018 Status: F Source: [place] 8:07 AM [facility] REPOSITORY TYPE CODE TESTS RESULT OUT OF RANGE REFERENCE UNITS LAB L300.4150 11.7-14.9 SECONDS High PROTIME 23.5 LAB L300.4200 Normal INR 2.1 Performed By: #### L300.3900 #### [facility] [address] [place], [address] PROTHROMBIN TIME W/INR Collected: 04/09/2018 Status: F Source: [place] 8:30 AM [facility] REPOSITORY TYPE CODE TESTS RESULT OUT OF RANGE REFERENCE UNITS LAB L300.4150 11.7-14.9 SECONDS High PROTIME 18.5 LAB L300.4200 Normal INR 1.5 Performed By: #### L300.3900 #### [facility] [address] [place], [address] PROTHROMBIN TIME W/INR Collected: 04/05/2018 Status: F Source: [place] 8:13 AM [facility] REPOSITORY TYPE CODE TESTS RESULT OUT OF RANGE REFERENCE UNITS LAB L300.4150 11.7-14.9 SECONDS High PROTIME 20.3 LAB L300.4200 Normal INR 1.7 Performed By: #### L300.3900 #### [facility] [place], [address] PROTHROMBIN TIME W/INR Collected: 01/19/2018 Status: F Source: [place] 8:03 AM [facility] REPOSITORY TYPE CODE TESTS RESULT OUT OF REFERENCE UNITS RANGE LAB L300.4150 11.7-14.9 SECONDS High PROTIME 39.9 LAB L300.4200 High alert INR 4.1 Result Comment: CRITICAL VALUE VERIFIED. CALLED TO MAGDALENA JUÁREZ 01/19/18 0838 Zhou Nava. RESULTS READ BACK BY SAME. Performed By: #### L300.3900 #### [facility] [address] [place], [address] PROTHROMBIN TIME W/INR Collected: 01/12/2018 Status: F Source: [place] 8:05 AM [facility] REPOSITORY TYPE CODE TESTS RESULT OUT OF RANGE REFERENCE UNITS LAB L300.4150 11.7-14.9 SECONDS High PROTIME 24.7 LAB L300.4200 Normal INR 2.2 Performed By: #### L300.3900 #### [facility] [address] [place], [address] PROTHROMBIN TIME W/INR Collected: 01/05/2018 Status: F Source: [place] 8:20 AM [facility] REPOSITORY TYPE CODE TESTS RESULT OUT OF RANGE REFERENCE UNITS LAB L300.4150 11.7-14.9 SECONDS High PROTIME 34.6 LAB L300.4200 Normal INR 3.4 Performed By: #### L300.3900 #### [facility] [place], [address] PROTHROMBIN TIME W/INR Collected: 01/02/2018 Status: F Source: MICAH 7:55 AM [facility] REPOSITORY TYPE CODE TESTS RESULT OUT OF RANGE REFERENCE UNITS LAB L300.4150 11.7-14.9 SECONDS High PROTIME 27.8 LAB L300.4200 Normal INR 2.6 Performed By: #### L300.3900 #### [facility] [address] [place], [address] PROTHROMBIN TIME W/INR Collected: 12/29/2017 Status: F Source: [place] 8:10 AM [facility] REPOSITORY TYPE CODE TESTS RESULT OUT OF RANGE REFERENCE UNITS LAB L300.4150 11.7-14.9 SECONDS High PROTIME 18.0 LAB L300.4200 Normal INR 1.5 Performed By: #### L300.3900 #### [facility] [address] [place], [address] PROTHROMBIN TIME W/INR Collected: 12/22/2017 Status: F Source: MICAH 8:15 AM [facility] REPOSITORY TYPE CODE TESTS RESULT OUT OF REFERENCE UNITS RANGE LAB L300.4150 11.7-14.9 SECONDS High PROTIME 36.7 LAB L300.4200 High alert INR 3.7 Result Comment: CRITICAL VALUE VERIFIED. CALLED TO BEATRIZ CALLES 12/22/17 0858 Zhou Nava. RESULTS READ BACK BY SAME. Performed By: #### L300.3900 #### [facility] [address] [place], [address] PROTHROMBIN TIME W/INR Collected: 12/19/2017 Status: F Source: [place] 8:12 AM [facility] REPOSITORY TYPE CODE TESTS RESULT OUT OF REFERENCE UNITS RANGE LAB L300.4150 11.7-14.9 SECONDS High PROTIME 45.0 LAB L300.4200 High alert INR 4.8 Result Comment: CRITICAL VALUE VERIFIED. CALLED TO INDRA AT [facility] 12/19/17 0835 Aline Villalba. RESULTS READ BACK BY SAME . Performed By: #### L300.3900 #### [facility] [address] [place], [address] CBC AND DIFFERENTIAL Collected: 12/03/2017 Status: F Source: [place] 5:24 AM [facility] REPOSITORY TYPE CODE TESTS RESULT OUT OF REFERENCE UNITS RANGE LAB WBC 3.70-11.00 k/uL WBC 9.21 LAB RBC 3.90-5.20 m/uL RBC Low 3.30 LAB HGB 11.5-15.5 g/dL Hemoglobin Low 10.6 LAB HCT 36.0-46.0 % Hematocrit Low 33.1 LAB MCV 80.0-100.0 fL MCV High 100.3 LAB MCH 26.0-34.0 pG MCH 32.1 LAB MCHC 30.5-36.0 g/dL MCHC 32.0 LAB RDWCV 11.5-15.0 % RDW-CV High 19.8 LAB PLTCT 150-400 k/uL Platelet Count 161 LAB MPV 9.0-12.7 fL MPV 9.9 LAB ANEUT % Neut% 78.9 LAB AANEUT 1.45-7.50 k/uL Abs Neut 7.27 LAB ALYMP % Lymph% 7.0 LAB AALYMP 1.00-4.00 k/uL Abs Lymph Low 0.64 LAB AMONO % [place]% 7.9 LAB AAMONO <0.87 k/uL Abs [place] 0.73 LAB AEOS % Eosin% 0.0 LAB AAEOS <0.46 k/uL Abs Eosin 0.00 LAB ABASO % Baso% 0.0 LAB AABASO <0.11 k/uL Abs Baso 0.00 LAB AMETA % [place]% 0.9 LAB AMYELO % Myelo% 5.3 LAB ANIIMI Anisocytosis Present LAB LFTIMI Left Shift Present LAB POLIMI Polychromasia Slight LAB RCFIMI RBC Fragments Few LAB PLTEST Platelet Estimate Platelet estimate adequate LAB DTYP DTYPE Manual Diff Performed By: #### CBCDIF, PT #### [facility] [address] [place], [place] [address] PROTIME Collected: 12/03/2017 Status: F Source: [place] 5:24 AM [facility] REPOSITORY TYPE CODE TESTS RESULT OUT OF RANGE REFERENCE UNITS LAB PSEC 9.7-13.0 sec High PT Sec 31.6 LAB INR 0.9-1.3 High PT INR 3.3 Result Comment: Vitamin K Antagonist (VKA) Therapeutic Range: INR 2 to 3 (Target INR of 2.5) Note: For patients treated with VKA drugs, such as warfarin, the [place] [employer] 2012 Guideline recommends a therapeutic INR range of 2 to 3 (target INR of 2.5). This recommendation includes high-risk patients with antiphospholipid syndrome with previous arterial or venous thromboembolism, current-generation mechanical or bioprosthetic aortic heart valve replacement. Note: Patients with mechanical aortic valve replacement and additional risk factors for thromboembolic events (atrial fibrillation, previous thromboembolism, LV dysfunction, hypercoagulable conditions) or an older generation mechanical AVR (i.e., ball in-Cage) or any mechanical MVR should have a INR therapeutic range of 2.5 to 3.5 (target INR of 3). Michael GH, et al. Chest 2012, 141:7S-47S Diogenes RA et al. [facility] 2017, 70: 252-289 Performed By: #### CBCDIF, PT #### [facility] [address] [place], [place] [address] CASE MANAGEM Observed: 12/02/2017 Status: COMPLETED Source: [place] 10:20 AM [facility] REPOSITORY HNO ID: [id number] Author: Wagner Paredes ([place]) Service: Social Work Author Type: Toolmaker Helper Type: Care Mgt Progress Note Filed: 12/02/2017 12:51 PM Note Text: CARE MANAGEMENT DISCHARGE NOTE SERVICE DATE: 12/02/2017 SERVICE TIME: 10:20 AM LOS: 38 days Admission Date: 10/25/2017 DISCHARGE ARRANGEMENT (list agency and phone number) Acute rehab Provider: [facility] CAREGIVER ASSESSMENT: Caregiver is ready, willing and able to meet the patient's needs as recommended by the inter-professional team? No Caregiver Needed Patient's transition needs and plan for meeting these needs: acute rehab Does the patient have an acute stroke diagnosis, or has the patient had a stroke during this admission? No HANDOFF COMMUNICATION: discharge instructions attached via ecin TRANSPORTATION ARRANGEMENTS: Ambulance: Transport Agency and Phone: Sandra Gabriel [phone] . Discussion of financial coverage occurred with Patient. ADDITIONAL CONTACT RESOURCES: n/a Per-cert was obtained by facility and team agreeable with discharge pt today to facility. Pt to be transported by [facility]. Pt is agreeable with discharge plan. SIGNATURE: NADIA Tian LSW PATIENT NAME: Paloma Cannon DATE: December 02, 2017 TIME: 10:20 AM PAGER/CONTACT #: [phone] CBC Collected: 12/02/2017 Status: F Source: [place] 5:27 AM [facility] REPOSITORY TYPE CODE TESTS RESULT OUT OF REFERENCE UNITS RANGE LAB WBC 3.70-11.00 k/uL WBC 7.52 LAB RBC 3.90-5.20 m/uL Low RBC 3.19 LAB HGB 11.5-15.5 g/dL Low Hemoglobin 10.2 LAB HCT 36.0-46.0 % Low Hematocrit 32.0 LAB MCV 80.0-100.0 fL MCV High 100.3 LAB MCH 26.0-34.0 pG MCH 32.0 LAB MCHC 30.5-36.0 g/dL MCHC 31.9 LAB RDWCV 11.5-15.0 % RDW-CV High 19.9 LAB PLTCT 150-400 k/uL Platelet Count 159 LAB MPV 9.0-12.7 fL MPV 9.9 LAB ABSNUC <0.01 k/uL Absolute High nRBC 0.02 Performed By: #### CBC, PT, PTT, RFP #### [facility] [address] [place], [place] [address] PROTIME Collected: 12/02/2017 Status: F Source: [place] 5:27 AM [facility] REPOSITORY TYPE CODE TESTS RESULT OUT OF RANGE REFERENCE UNITS LAB PSEC 9.7-13.0 sec High PT Sec 30.3 LAB INR 0.9-1.3 High PT INR 3.1 Result Comment: Vitamin K Antagonist (VKA) Therapeutic Range: INR 2 to 3 (Target INR of 2.5) Note: For patients treated with VKA drugs, such as warfarin, the [place] [employer] 2012 Guideline recommends a therapeutic INR range of 2 to 3 (target INR of 2.5). This recommendation includes high-risk patients with antiphospholipid syndrome with previous arterial or venous thromboembolism, current-generation mechanical or bioprosthetic aortic heart valve replacement. Note: Patients with mechanical aortic valve replacement and additional risk factors for thromboembolic events (atrial fibrillation, previous thromboembolism, LV dysfunction, hypercoagulable conditions) or an older generation mechanical AVR (i.e., ball in-Cage) or any mechanical MVR should have a INR therapeutic range of 2.5 to 3.5 (target INR of 3). Michael PLASENCIA, et al. Chest 2012, 141:7S-47S Diogenes RA et al. [facility] 2017, 70: 252-289 Performed By: #### CBC, PT, PTT, RFP #### [facility] [address] [place], [place] [address] APTT Collected: 12/02/2017 Status: F Source: [place] 5:27 AM [facility] REPOSITORY TYPE CODE TESTS RESULT OUT OF RANGE REFERENCE UNITS LAB APTT 23.0-32.4 sec High APTT 38.2 Result Comment: Unfractionated Heparin Therapeutic Ranges: Standard Heparin Nomogram: 53 to 78 seconds (anti-Xa level of 0.3 to 0.7 U/ml) Low Dose/ACS Nomogram: 49 to 67 seconds (anti-Xa level of 0.2 to 0.5 U/ml) Stroke Treatment Nomogram: 49 to 67 seconds (anti-Xa level of 0.2 to 0.5 U/ml) Note: The APTT therapeutic range has been determined for the current lot of laboratory APTT reagent in use throughout the [facility]. Performed By: #### CBC, PT, PTT, RFP #### [facility] [address] [place], [place] [address] RENAL FUNCTION PANEL Collected: 12/02/2017 Status: F Source: [place] 5:27 AM [facility] REPOSITORY TYPE CODE TESTS RESULT OUT OF REFERENCE UNITS RANGE LAB ALB 3.9-4.9 g/dL Low Albumin 3.5 LAB CA 8.5-10.2 mg/dL Low Calcium, Total 8.4 LAB PHOS 2.7-4.8 mg/dL Phosphorus 3.4 LAB GLU 74-99 mg/dL Glucose 80 Result Comment: The [place] [employer] (ADA) provides guidance for cutoff values for fasting glucose and random glucose. The ADA defines fasting as no caloric intake for at least 8 hours. Fas ting plasma glucose results between 100 to 125 mg/dL indicate increased risk for diabetes (prediabetes). Fasting plasma glucose results greater than or equal to 126 mg/dL meet the criteria for diagnosis of diabetes. In the absence of unequivocal hyperglycemia, results should be confirmed by repeat testing. In a patient with classic symptoms of hyperglycemia or hyperglycemic crisis, random plasma glucose results greater than or equal to 200 mg/dL meet the criteria for diagnosis of diabetes. Reference: Standards of Medical Care in Diabetes 2016, [place] [employer]. Diabetes Care. 2016.39(Suppl 1). LAB BUN 7-21 mg/dL BUN High 40 LAB CRET 0.58-0.96 mg/dL Creatinine High 1.22 LAB NA 136-144 mmol/L Sodium 143 LAB K 3.7-5.1 mmol/L Potassium 4.1 LAB CL 97-105 mmol/L Chloride 100 LAB CO2 22-30 mmol/L CO2 30 LAB AGAP 9-18 mmol/L Anion Gap 13 LAB GFRAA eGFR- Amer. >60 LAB GFRNAA . eGFR-All Other Races 52 Result Comment: eGFR (Estimated GFR) Units of measure: mL/min/1.73 meters squared eGFR is derived from the reexpressed MDRD Study equation using the following parameters: serum creatinine, age, gender and race. The creatinine assay has been calibrated to be traceable to IDMS. An eGFR <60 mL/min/1.73m2 for >3 months is consistent with chronic kidney disease. Refer to KDOQI guidelines for clinical interpretation. In patients with unstable renal function, e.g. those with acute kidney injury, the eGFR may not accurately reflect actual GFR. Performed By: #### CBC, PT, PTT, RFP #### [facility] [address] [place], [place] [address] PROGRESS Observed: 12/01/2017 Status: COMPLETED Source: [place] 1:33 PM [facility] REPOSITORY HNO ID: [id number] Author: Olga Reyez Service: General Internal Medicine Author Type: Resident Type: Progress Notes Filed: 12/01/2017 1:57 PM Note Text: Attestation signed by Zhou Lang at 12/01/2017 5:[address] FRED STONE, SR. HOSPITAL STAFF PHYSICIAN NOTE OF PERSONAL INVOLVEMENT IN CARE I have reviewed the progress note obtained and documented by the resident and I personally participated in the fernandes components. Patient seen and discussed with house staff on rounds. The following comments revise or confirm relevant fernandes components of their note. Ms. Cannon's anticipated discharge today was delayed by pre- certification. I doubt that will be granted over the holiday . As such, I suspect Ms. Cannon will remain in the hospital until Monday, in spite of being medically stable for discharge. Over the weekend, we will continue to monitor for deterioration. I note her sputum culture results, but Staphylococcal pneumonia is wholly inconsistent with her clinical picture. We will continue to encourage physical activity, continue warfarin, and continue working with Ms. Cannon to simplify, streamline, and increase the safety of her medication regimen. Detailed plan per house staff note. I remain available for questions/discussion, if helpful. SIGNATURE: Zhou Lang MD PAGER: [phone] DATE of SERVICE: 12/01/2017 TIME of SERVICE: 5:05 PM RAF A PROGRESS NOTE For questions regarding this patient today please page [phone] After 5 pm on weekdays and 3pm on weekends and holidays please page documentation clerk pager [phone] SERVICE DATE: 12/01/2017 SERVICE TIME: 1:33 PM INTERVAL HISTORY: - No events overnight. No complaints of worsening pain. - platelets and hemoglobin stable - INR 2.4 with coumadin 5 mg PLAN FOR TODAY - No discharge today due to pre-cert delay - mucinex for thick secretions. - c/w torsemide 20 mg BID unless renal function changes significantly - c/w warfarin 5 mg - monitor for signs of fresh bleeding and new pain (Left RP and abdominal pain) - appreciate VM and heme recs - next apheresis scheduled for 12/11. MEDICATIONS: Current hospital medications: warfarin 5 mg tab(s) (COUMADIN) 5 mg ORAL DAILY - WARFARIN guaiFENesin 600 mg ER tab(s) (MUCINEX) 600 mg ORAL q 12 H senna 17.2 mg tab(s) (SENOKOT) 17.2 mg ORAL/FEEDING TUBE BID torsemide 20 mg tab(s) (DEMADEX) 20 mg ORAL 2 times per day oxyCODONE IR 5 mg tab(s) (ROXICODONE) 5 mg ORAL/FEEDING TUBE q 3 H PRN sodium citrate 4% 3-6 mL catheter lock 3-6 mL INTRALUMINAL APHERESIS PRN lidocaine 5 % 1 Patch (LIDODERM) 1 Patch TRANSDERMAL DAILY lidocaine patch - REMOVE OTHER AT BEDTIME lidocaine - VERIFY PATCH OTHER q 8 H warfarin order for discharge OTHER PRN hyoscyamine sublingual 0.25 mg tab(s) (LEVSIN SL) 0.25 mg SUBLINGUAL TID PRN [id number] 10 mL oral liquid (BMX 1:1:1) 10 mL ORAL q 2 H PRN gabapentin 400 mg cap(s) (NEURONTIN) 400 mg ORAL TID cyclobenzaprine 10 mg tab(s) (FLEXERIL) 10 mg ORAL AT BEDTIME cyclobenzaprine 10 mg tab(s) (FLEXERIL) 10 mg ORAL BID PRN NIFEdipine ER 60 mg tab(S) (PROCARDIA XL) 60 mg ORAL BID predniSONE 40 mg tab(s) (DELTASONE) 40 mg ORAL/FEEDING TUBE DAILY acetaminophen 1,000 mg tab(s) (TYLENOL) 1,000 mg ORAL TID 0.9% NaCl 10 mL 10 mL INTRAVENOUS q 12 H 0.9% NaCl 20 mL 20 mL INTRAVENOUS PRN albuterol 2.5 mg /3 mL (0.083 %) 2.5 mg (PROVENTIL) 2.5 mg INHALATION q 4 WEEKS pentamidine 300 mg nebulizer solution (NEBUPENT) 300 mg INHALATION q 4 WEEKS carvedilol 25 mg tab(s) (COREG) 25 mg ORAL/FEEDING TUBE BID w MEALS lidocaine 5 % 1 Patch (LIDODERM) 1 Patch TRANSDERMAL DAILY lidocaine patch - REMOVE OTHER AT BEDTIME lidocaine - VERIFY PATCH OTHER q 8 H polyethylene glycol 3350 17 g packet (MIRALAX, GLYCOLAX) 17 g ORAL/FEEDING TUBE DAILY docusate sodium 100 mg cap(s) (COLACE) 100 mg ORAL BID pantoprazole DR 40 mg tab(s) (PROTONIX) 40 mg ORAL DAILY (6 AM) ondansetron 8 mg tab(s) (ZOFRAN) 8 mg ORAL q 8 H PRN diphenhydrAMINE 50 mg (BENADRYL) 50 mg ORAL/FEEDING TUBE q 6 H PRN hydrocortisone sodium succinate (PF) 100 mg injection (Solu- CORTEF) 100 mg INTRAVENOUS q 4 H PRN diphenhydrAMINE 50 mg injection (BENADRYL) 50 mg INTRAVENOUS q 4 H PRN prochlorperazine 5 mg injection (COMPAZINE) 5 mg INTRAVENOUS q 6 H PRN dextrose 50% in water 25-50 mL syringe 12.5-25 g INTRAVENOUS PRN dextrose 40 % 15 g 15 g ORAL PRN glucagon 1 mg injection (GLUCAGEN) 1 mg SUBCUTANEOUS PRN HOME MEDICATIONS: cyclophosphamide (CYTOXAN) 50 mg capsule Take 150 mg by mouth once daily. diphenhydrAMINE (BENADRYL) 50 mg capsule Take 1 capsule by mouth every 6 hours as needed for Itching/Rash. gabapentin (NEURONTIN) 100 mg capsule Take 1 capsule by mouth three times daily for 7 days. ondansetron (ZOFRAN, HYDROCHLORIDE,) 8 mg tablet Take 8 mg by mouth every 8 hours as needed for Nausea/Vomiting. pantoprazole DR (PROTONIX) 40 mg tablet Take 40 mg by mouth daily at bedtime. sulfamethoxazole-trimethoprim (BACTRIM DS) 800-160 mg per tablet Take 1 tablet by mouth every Monday,Monday,Monday. fluticasone (FLONASE) 50 mcg/actuation nasal spray Use 1-2 Sprays in each nostril once daily as needed for Cold/Allergy Symptoms (starting in allergy season). senna 8.6 mg tab Take 1 tablet by mouth twice daily as needed. PHYSICAL EXAM: VITAL SIGNS Patient Vitals for the past 24 hrs: BP Temp Temp src Pulse Resp SpO2 Weight 12/01/17 1000 150/73 37 ?C (98.6 ?F) Oral 109 18 93 % - 12/01/17 0853 149/86 - - 104 - - - 12/01/17 0600 - - - - - - 109.4 kg (241 lb 2.9 oz) 12/01/17 0538 128/80 36.7 ?C (98.1 ?F) Oral 96 20 95 % - 12/01/17 0126 138/77 36.7 ?C (98 ?F) Oral 89 18 95 % - 11/30/17 2121 132/73 36.4 ?C (97.5 ?F) Oral 84 19 96 % - 11/30/17 1719 156/92 - - 99 - - - 11/30/17 1500 146/82 - - - - - - 11/30/17 1350 134/78 36.9 ?C (98.4 ?F) Oral 103 20 93 % - BP 150/73 Pulse 109 Temp 37 ?C (98.6 ?F) (Oral) Resp 18 Ht 160 cm (5' 3) Wt 109.4 kg (241 lb 2.9 oz) SpO2 93% BMI 42.72 kg/m? Temp (24hrs), Av.7 ?C (98.1 ?F), Min:36.4 ?C (97.5 ?F), Max:37 ?C (98.6 ?F) INTAKE/OUTPUT Intake/Output Summary (Last 24 hours) at 12/01/17 1333 Last data filed at 12/01/17 1221 Gross per 24 hour Intake 740 ml Output 3 ml Net 737 ml General: Alert, oriented, cooperative.?In no acute distress. 5L NC Skin:?Chronic skin changes on bilateral LE below the knee?due to lymphedema HEENT: EOM. Pupils equal, round and reactive Cardiovascular: RRR. No murmur Chest: TTP over lower left chest Lungs: Crepitations at the bases than prior Abdomen: Soft, TTP in LUQ, no masses or organomegaly. Varicose veins bilaterally. Extremities: 2+ peripheral edema but improving,?+2 DP pulses bilaterally Neurological: Moving all extremities freely? LAB DATA: CBC, Coags, BMP, Mg, Phos Recent Labs 12/01/17 0514 11/30/17 0834 11/30/17 0435 11/29/17 0405 WBC 6.27 -- 6.64 6.26 HB 10.3* -- 10.7* 10.7* HCT 32.1* -- 33.0* 33.9* PLT 162 -- 158 170 INR 2.4* 2.6* 3.2* 2.2* APTT 38.7* 52.6* 68.6* 58.8* NA -- -- 143 -- K -- -- 4.3 -- CHLOR -- -- 101 -- CO2 -- -- 27 -- BUN -- -- 41* -- CREAT -- -- 1.36* -- GLUC -- -- 84 -- CA -- -- 8.4* -- P -- -- 3.0 -- PT INR Date Value Ref Range Status 12/01/2017 2.4 (H) 0.9 - 1.3 Final Comment: Vitamin K Antagonist (VKA) Therapeutic Range: INR 2 to 3 (Target INR of 2.5) Note: For patients treated with VKA drugs, such as warfarin, the [place] [employer] 2012 Guideline recommends a therapeutic INR range of 2 to 3 (target INR of 2.5). This recommendation includes high-risk patients with antiphospholipid syndrome with previous arterial or venous thromboembolism, current-generation mechanical or bioprosthetic aortic heart valve replacement. Note: Patients with mechanical aortic valve replacement and additional risk factors for thromboembolic events (atrial fibrillation, previous thromboembolism, LV dysfunction, hypercoagulable conditions) or an older generation mechanical AVR (i.e., ball in-Cage) or any mechanical MVR should have a INR therapeutic range of 2.5 to 3.5 (target INR of 3). Michael PLASENCIA, et al. Chest 2012, 141:7S-47S Diogenes RESENDIZ, et al. [facility] 2017, 70: [phone] ASSESSMENT AND PLAN: Active Hospital Problems Diagnosis - Retroperitoneal hematoma Retroperitoneal bleed: s/p 7 units PRBCs s/p IR emobolization of left L3 artery at [facility] on 10/23 IR embolization of left L2 and L3 arteries on 10/26 CT abd/pel 10/31: RP bleed stable when compared to previous imaging from 10/27 LDH 1730, haptoglobin <10, Tbili 1.3- concern for hemolysis as well. 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 Has received stenting of IVC and iliacs along with endograft of IVC. 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 C/B extensive RP bleed s/p L2, L3 embolization. N-plate 11/09, 11/13 Received Apheresis on 11/03, 11/13 (heme following); patient is on [id number] (Mondays), next scheduled for 11/27 11/22: started bivalirudin for bridge to coumadin (on 2.5 alternating w 5 mg coumadin) Plan: Holding Cytoxan 75 mg in setting of worsening thrombocytopenia Continue prednisone 40 mg withpentamidine ppx Appreciate hematology and VM recs c/w with bivalirudin and start coumadin bridge. Bivalirudin and coumadin should overlap for a minimum of 5 days until INR is therapeutic before Bivalirudin discontinued -c/w coumadin 5 mg - HTN (hypertension) Mildly decreased systolic function, diastolic function indeterminate on 10/13/17 ECHO. 10/28: Run of SBP in 200s overnight (likely d/t pain), given hydralazine however still consistently in 170s-180s 10/29: Still hypertensive, required 4 doses of hydralazine overnight Switched Amlodipine 10 mg to nifedipine 30mg on 11/10, and increased Coreg from 6.25 to 25 mg BID Plan: Nifedipine 60 mg BID and keeping Coreg 25 mg at current dosing Can consider adding PRN hydralazine for SBP>180 mm Hg, Also on torsemide for volume - Peripheral neuropathy - History of heparin-induced thrombocytopenia Avoid all heparin products. 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 - Left groin pain 10/27: C/o acute painin morning, access site for embolization at [facility], no erythema or induration appreciated on exam, exquisitely TTP Groin study showed no signs of PSA, known AV fistula visualized with retrograde flow, vascular med aware- no further recs 10/28: pain less severe, no physical exam findings Repeat Leg DVT shows no pseudoaneurysm Likely due to nerve compression/RP hematoma causing compressive symtpoms S/p R groin drain placed at [facility] on 10/24 s/p L groin drain placed at [facility] during embolization on 10/26 Plan: - repeat image showed decreased size - will continue to monitor symptoms and HANDH w low threshold for imaging MAINTENANCE: VTE PROPHYLAXIS:?coumadin NEED FOR ZUNIGA- Removed 11/14/17 LINES: Double lumen dialysis catheter 10/25/17 Dispo-?Acute rehabilitation center This note is not final until staffed by the attending physician and authenticated by responsible provider. SIGNATURE: Olga Reyez MD PATIENT NAME: Paloma Cannon DATE: December 01, 2017 TIME: 1:33 PM PAGER: [phone] CASE MANAGEM Observed: 12/01/2017 Status: COMPLETED Source: [place] 1:13 PM [facility] REPOSITORY HNO ID: [id number] Author: Cherrie Loaiza (Asst) Service: Care Management Author Type: Resource Center Satellite Tv Technician Installer Type: Care Mgt Progress Note Filed: 12/01/2017 1:14 PM Note Text: CARE MANAGEMENT PROGRESS NOTE SERVICE DATE: 12/01/2017 SERVICE TIME: 12:04 LOS: 37 days IM letter given to patient on 12/01/17. SIGNATURE: Asst Xiomara PATIENT NAME: Paloma Cannon DATE: December 01, 2017 TIME: 1:13 PM PAGER/CONTACT #: [phone] THERAPY NT Observed: 12/01/2017 Status: COMPLETED Source: [place] 11:06 AM [facility] REPOSITORY HNO ID: [id number] Author: [facility] Service: Physical Therapy Author Type: Ancillary Specialist Type: Therapy (PT/OT/Speech/Resp) Filed: 12/01/2017 11:14 AM Note Text: Attestation signed by Brenda Meraz at 12/01/2017 11:49 AM I reviewed and agree with the assessment as documented above. SIGNATURE: Brenda Meraz PT DATE: December 01, 2017 TIME: 11:49 AM Physical Therapy Treatment SERVICE DATE: 12/01/2017 SERVICE TIME: 1014 to 1100 ROOM: H080- Recommended Discharge Disposition: Acute Rehab Justification For Post Acute Needs: Anticipate that patient will require daily (5x/wk) skilled therapy in a post-acute facility setting at the time of acute hospital discharge;Willing to participate;Motivated;Anticipate patient will tolerate 3 hours of daily therapy at the time of admission to post-acute setting;Good family support Anticipated Discharge Needs: Undetermined PT Recommendations to Nursing: With assist of 1 person;Transfer to/from chair;OOB for Meals PT 6 Clicks Score: 16 Precautions/Activity Restrictions: Fall Risk;Lines/Tubes/Drains ASSESSMENT : Patient progressing well with functional mobility. Patient able to ambulate for 3 trials today with desat to 85-89% on 6 liters, improved to >92% with cues for breathing and seated rest breaks. Continue to recommend AR to address current functional deficits. Patient Disposition at Start of Session: Supine in Bed Patient Disposition at End of Session: OOB in Chair;Call Wagoner in Reach Tolerated Full Session Fatigue;Pain Physical Therapy Problem List: Cognitive Deficit;Education Deficit;Decreased Activity Tolerance;Decreased Strength;Functional Mobility Impairment Patient /Caregiver Goals: Go Home Goals for Plan of Care: Rolling with: Independent Transfer supine to/from sit with: Independent Transfer sit to/from stand with: Contact Guard Assistance Ambulate with: Contact Guard Assistance Distance: 10 Device: Wheeled Walker Progress Toward Goals: Progressing as expected Due To: medical acuity Rehab Potential: Good PLAN: Treatment Frequency (times per week): 3 (1-2PRN) Treatment Duration (number): 2 Weeks Treatment Interventions: Education;Energy Conservation Training;Strengthening;Functional Mobility Training;Balance Training Plan of Care developed with: Patient TREATMENT INTERVENTIONS: Therapy Diagnosis: Reduced mobility-other Interventions Provided: Gait Training (05857);Therapeutic Exercise (68706) Therapeutic Exercise (65095) Treatment Minutes: 15 1 unit Skilled Intervention(s): Patient instructed in and performed seated exercises for 10 reps with 5 second hold: LAQ, marching, hip adduction with manual resistance with assist for minimal verbal cues for pacing and proper technique. Educated patient in reasoning for each exercise. WC mobility using BUE only 30', 70' x 2 with SBA with cues for obstacle negotiation and initiated rest breaks due to mild shortness of breath (91% on 6 liters) Gait Training (78608) Treatment Minutes: 23 2 units Skilled Intervention(s): Instruction in sit to stand technique with proper hand placement and body positioning at edge of bed/chair, Instruction in stand to sit technique with LE's touching chair/bed and reaching back for surface, Instruction in correction of gait deviations, Instruction in use of equipment, cues for sequence and pattern. Patient required extra time monitoring oxygen ( 88-94% on 6 liters) and HR ( 103-114 bpm) between trials with cues for breathing, energy conservation and pacing. Total Timed Code Treatment Minutes: 38 Total Treatment Time (minutes): 46 FUNCTIONAL G CODE: PT 6 Clicks Score: 16 (12/01/17 1014) Mobility: Walking and Moving Around Current Status (G8978): CL (11/02/17 1015) Mobility: Walking and Moving Around Goal Status (G8979): CK (11/02/17 1015) Based on clinical assessment and the score on the 6 Clicks Functional Assessment Tool, the G code and corresponding severity modifiers are documented above. SUBJECTIVE: Current Hospital Course: Chart reviewed and no significant medical updates relevant to therapy were noted Patient Report: Patient stated legs less swollen today. 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 Entry To Home: No Stairs Number Of Stairs To Bed/Bath: 0 Tub/Shower Type: walk in shower Equipment Owned: Commode-Raised;Grab Bars-Shower;Grab Bars-Toilet;Shower Chair;Home Oxygen Prior Functional Level: Required Assistance Assistance Required With: Cleaning;Laundry;Meals;Shopping;Transportation Prior Wound Care: Other: See Comment (unable to don compression stockings (I)) OBJECTIVE: CURRENT FUNCTIONAL STATUS: Current Functional Mobility Assist Level Additional Information Rolling Stand By Assistance Supine to Sit Stand By Assistance Sit to Supine Moderate Assistance (BLE) Scooting Contact Guard Assistance Sit to Stand Minimal Assistance (to CGA depending on fatigue) Stand to Sit Contact Guard Assistance Bed to Chair Minimal Assistance Toilet/Commode Minimal Assistance Gait Minimal Assistance (to CGA) Gait Device: Wheeled Walker Gait Distance (feet): 4',45' x 2, 60' Stairs Curb Step Car Transfer General Gait Deviations: Delmy decreased;Lateral sway increased;Step length decreased;Wide base of support Balance: Static Sitting;Dynamic Sitting;Static Standing;Dynamic Standing Static Sitting Balance: Stand By Assistance Dynamic Sitting Balance: Contact Guard Assistance Static Standing Balance: Contact Guard Assistance Dynamic Standing Balance: Minimal Assistance Please see discipline specific clinical documentation flowsheet for complete details for this therapy evaluation/treatment. SIGNATURE: Indra Woods PTA PATIENT NAME: Paloma Cannon DATE: December 01, 2017 TIME: 11:06 AM PAGER/CONTACT #: [phone] CBC Collected: 12/01/2017 Status: F Source: [place] 5:14 AM [facility] REPOSITORY TYPE CODE TESTS RESULT OUT OF REFERENCE UNITS RANGE LAB WBC 3.70-11.00 k/uL WBC 6.27 LAB RBC 3.90-5.20 m/uL Low RBC 3.16 LAB HGB 11.5-15.5 g/dL Low Hemoglobin 10.3 LAB HCT 36.0-46.0 % Low Hematocrit 32.1 LAB MCV 80.0-100.0 fL MCV High 101.6 LAB MCH 26.0-34.0 pG MCH 32.6 LAB MCHC 30.5-36.0 g/dL MCHC 32.1 LAB RDWCV 11.5-15.0 % RDW-CV High 20.2 LAB PLTCT 150-400 k/uL Platelet Count 162 LAB MPV 9.0-12.7 fL MPV 10.5 LAB ABSNUC <0.01 k/uL Absolute High nRBC 0.02 Performed By: #### CBC, PT, PTT #### [facility] [address] [place], [place] [address] PROTIME Collected: 12/01/2017 Status: F Source: [place] 5:14 AM [facility] REPOSITORY TYPE CODE TESTS RESULT OUT OF RANGE REFERENCE UNITS LAB PSEC 9.7-13.0 sec High PT Sec 23.8 LAB INR 0.9-1.3 High PT INR 2.4 Result Comment: Vitamin K Antagonist (VKA) Therapeutic Range: INR 2 to 3 (Target INR of 2.5) Note: For patients treated with VKA drugs, such as warfarin, the [place] [employer] 2012 Guideline recommends a therapeutic INR range of 2 to 3 (target INR of 2.5). This recommendation includes high-risk patients with antiphospholipid syndrome with previous arterial or venous thromboembolism, current-generation mechanical or bioprosthetic aortic heart valve replacement. Note: Patients with mechanical aortic valve replacement and additional risk factors for thromboembolic events (atrial fibrillation, previous thromboembolism, LV dysfunction, hypercoagulable conditions) or an older generation mechanical AVR (i.e., ball in-Cage) or any mechanical MVR should have a INR therapeutic range of 2.5 to 3.5 (target INR of 3). Guyatt GH, et al. Chest 2012, 141:7S-47S Diogenes RA, et al. [facility] 2017, 70: 252-289 Performed By: #### CBC, PT, PTT #### [facility] [address] [place], [place] [address] APTT Collected: 12/01/2017 Status: F Source: [place] 5:14 AM [facility] REPOSITORY TYPE CODE TESTS RESULT OUT OF RANGE REFERENCE UNITS LAB APTT 23.0-32.4 sec High APTT 38.7 Result Comment: Unfractionated Heparin Therapeutic Ranges: Standard Heparin Nomogram: 53 to 78 seconds (anti-Xa level of 0.3 to 0.7 U/ml) Low Dose/ACS Nomogram: 49 to 67 seconds (anti-Xa level of 0.2 to 0.5 U/ml) Stroke Treatment Nomogram: 49 to 67 seconds (anti-Xa level of 0.2 to 0.5 U/ml) Note: The APTT therapeutic range has been determined for the current lot of laboratory APTT reagent in use throughout the [facility]. Performed By: #### CBC, PT, PTT #### [facility] [address] [place], [place] [address] CNDS Observed: 11/30/2017 Status: COMPLETED Source: [place] 5:53 PM [facility] REPOSITORY HNO ID: [id number] Author: Olga Reyez Service: General Internal Medicine Author Type: Resident Type: Discharge Summaries Filed: 12/02/2017 11:56 AM Note Text: Attestation signed by Zhou Lang at 12/02/2017 4:[address] FRED STONE, SR. HOSPITAL STAFF PHYSICIAN NOTE OF PERSONAL INVOLVEMENT IN CARE I have reviewed the discharge summary obtained and documented by the resident and I personally participated in the fernandes components. Patient seen and discussed with house staff on rounds. The following comments revise or confirm relevant fernandes components of their note. Ms. Cannon is now discharged following a series of hospitalizations, which included DAH, retroperitoneal hemorrhage, and pulmonary embolus. She has been stable and therapeutic on warfarin, and I expect she will do well at acute rehab. Please see Dr. Reyez's summary of her [id number] issues for follow-up, monitoring, and medication changes. I remain available for questions/discussion, if helpful. CARE COORDINATION: Discharge Management: I personally spent greater than 30 minutes involved in the discharge management of this patient SIGNATURE: Zhou Lang MD PAGER: [phone] DATE of SERVICE: 12/02/2017 TIME of SERVICE: 3:47 PM DISCHARGE SUMMARY ADMISSION DATE: 10/25/2017 DISCHARGE DATE: 12/02/2017 Attending Physician: Zhou Lang Reason for Hospitalization: Retroperitoneal bleed Hospital Course: This is a 27 year old female with a PMHx significant for: - Catastrophic anti-phospholipid syndrome: c/b DVT/PE requiring extensive percutaneous thrombectomy of her IVC and lower extremity veins followed by b/l iliac venous stents and endograft into her IVC, on long-term anti-coagulation (was transitioned from coumadin to fondaparinux in her previous admission on 10/13), plasmapheresis q2 weeks, long- term prednisone - 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 According to the [facility], warfarin was held on 10/13, and she was then started on prophylactic fondaparinux. She was evnetually extubated. There was concern for pulmonary embolism during that admission, particularly on 10/17 when she complained o fnew left-sided chest pain, but no imaging was done as she was already on appropriate anticoagulation. She received Plex twice, on 10/16 and again on 10/18. A bilateral was negative for acute DVTs, but did reveal a chronic common femoral DVT. Neurology was consulted for left foot numbness which was present through her stay with no intervention recommended. She was discharged on PO prednisone on 10/23/17 10/23/17-10/25/17: Shortly after discharge, she presented to [facility] ED on 10/23 due to new left-sided abdominal pain that was severe and stabbing in nature, and radiated to her left upper and lower extremities. A CT abdomen/pelvis revealed an extensive left retroperitoneal hemorrhage with mass effect to the left kidney, and less extensive hemorrhage along the surface of the spleen and along the mesentery. She was transferred to [facility] for admission to the ICU. In [facility] ICU, urgent L RP angiogram with IR revealed bleeding from multiple foci of the left L3 artery, and embolization was carried out with gelfoam and coils. An incidental finding of a large lower extremity fistula was found during angiogram, but, per vascular surgery, this was surgically created, and did not require intervention at the time. Nephrology was consulted for CAPRICE which was thought to be contrast-induced nephropathy. LE venous ultrasound was negative for an acute DVT bilaterally. She received 7 units of pRBC during this time, premedicated with diphenhydramine and solu-cortef. She also had a tunneled dialysis port placed, and underwent dialysis. She was transferred to [facility] MICU on 10/25/17 for further management. 10/25/17-11/03/17 ([facility] MICU): On admission, her Hb was 6.6, WBC-21K and platelets-44K. She was noted to have mild transaminitis (AST/ALT-63/95), serum creatinine of 2.84 (baseline 1.22), hyponatremia of 125 and hyperkalemia of 5.4. The vascular medicine team was consulted, who recommended holding anticoagulation for at least 14 days after bleeding had stopped, and to also avoid heparin products due to her history of HIT. She continued to drop in her HANDH levels, and therefore underwent a repeat IR-guided lumbar angiogram which revealed no active extravasation; however, due to a drop in hemoglobin, L2 and L3 vertebral arteries were embolized with gelfoam slurry and coils. She received a total of 9 units of pRBC and 6 U platelets during her MICU stay at [facility], in addition to the 7 units received at [facility]. Hematology was also consulted who recommended to continue cyclophosphamide at 150 mg daily and to increase prednisone to 80 mg daily. However, she had significant anemia with thrombocytopenia, concerning for bone marrow toxicity. A peripheral smear showed immature RBCs thought to be due to stressed bone marrow response. Cyclophosphamide dosing was reduced then to 75 mg. She underwent apharesis on 11/03, per hematology's recommendations. Her respiratory cultures grew Moraxella catarrhalis, for which she completed a course of ceftriaxone (10/27-11/03); her WBC trended down from 21 K to 12K subsequently. She was transitioned from dilaudid WA[employer] to IV dilaudid and PO oxycodone prior to transfer to the regular nursing floor under the care of General Internal Medicine on 11/03. 11/03/17-12/02/17: Hemolysis labs were significant for elevated LDH, elevated reticulocyte count, undetectable haptoglobin, direct darby negative, and [id number] activity levels of 56% (not suspicious for TTP). Cyclophosphamide was stopped on 11/09 given her thrombocytopenia as it might have been causing myelosuppression. N plate was administered as follows: 2mcg/kg sq x1 on 11/09 , 3 mcg/kg on 11/13, and 4 mcg/kg on 11/17. Her platelets levels normalized above 150 by the time of discharge. It was believed that her persistent thrombocytopenia was due to her resolving hematoma with consumption of platelets. CT abdomen/pelvis on 11/24 revealed decrease in size in her left RP hematoma. Once her platelet levels normalized above 50, she was started on anticoagulation with bivalirudin with bridge to coumadin. Her INR became therapeutic and, per Vascular Medicine's recommendations, she was discharged with coumadin 5 mg daily, with specific instruction to take coumadin 7.5 mg the two days following plasmapheresis (which she gets done every two weeks). Due to a mass effect from her RP hematoma, she suffered from left-sided back pain that radiated down her left lower extremity. Her pain improved overtime and she was successfully weaned off IV pain medications. She also developed constipation secondary to opiates she was using regularly for pain. This was relieved with senna-s and miralax which she was discharged on. Her bactrim was also switched to pentamidine (Q monthly) for PJP prophylaxis. She also suffered from a chronic cough during her admission, that was productive for small amount of brown phlegm, without evidence of fresh blood. Sputum culture preliminary result at the time of discharge read Many Gram positive cocci in clusters Rare Gram positive diphtheroid-like bacilli Rare Polymorphonuclear leukocytes, but she did not display any signs of infection such as fever, elevated WBC levels, or hemodynamic instability. As well, her physical exam and chest xray did not suggest an infectious process. Therefore, there was low suspicion of an infection, such as pneumonia. Of note, she developed new left-sided pleuritic pain below her anterior ribs on 11/27, associated with tachycardia and increased oxygen requirements (3-->5L NC). It was thought that this change in her respiratory status was most likely due to a new pulmonary embolus, given her pretest probability and known large IVC thrombus. 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 Her pain over the anterior ribs did improve greatly, as did her tachycardia. Her oxygen requirements on discharge remained at 4-5 L NC with oxygen saturation stable at 95-97%. Her INR the morning of discharge (12/02) was 3.2. She will need a dose less than 5 mg of coumadin this evening. Please adjust accordingly. The patient was discharged in stable condition to acute rehabilitation facility with recommended follow-up appointments with Pulmonology, Vascular Medicine, Hematology, Nephrology. Active Hospital Problems Diagnosis - Retroperitoneal hematoma Retroperitoneal bleed: s/p 7 units PRBCs s/p IR emobolization of left L3 artery at [facility] on 10/23 IR embolization of left L2 and L3 arteries on 10/26 CT abd/pel 10/31: RP bleed stable when compared to previous imaging from 10/27 LDH 1730, haptoglobin <10, Tbili 1.3- concern for hemolysis as well. Per heme, thrombocytopenia and anemia likely related to cytoxan with stressed BM Cytoxan reduced to 75 mg daily currently held due to thrombocytopenia. 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 Has received stenting of IVC and iliacs along with endograft of IVC. 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 C/B extensive RP bleed s/p L2, L3 embolization. N-plate 11/09, 11/13 Received Apheresis on 11/03, 11/13 (heme following); patient is on c6belem (Mondays), next scheduled for 11/27 11/22: started bivalirudin for bridge to coumadin (on 2.5 alternating w 5 mg coumadin) Plan: Holding Cytoxan 75 mg in setting of worsening thrombocytopenia Continue prednisone 40 mg wit hpentamidine ppx Appreciate hematology and VM recs c/w with bivalirudin and start coumadin bridge. Bivalirudin and coumadin should overlap for a minimum of 5 days until INR is therapeutic before Bivalirudin is discontinued. INR therapeutic. Continue on coumadin - CAPRICE (acute kidney injury) (HCC) CAPRICE on CKD III, 2/ contrast, improved to S.Cr-1.3 Received IHD during this admission but renal function is recovering and IHD was held rest of admission. Plan: Nephrology following- appreciate recommendations Renal dosing of medication Avoid excess fluids and nephrotoxic drugs - HTN (hypertension) Mildly decreased systolic function, diastolic function indeterminate on 10/13/17 ECHO. 10/28: Run of SBP in 200s overnight (likely d/t pain), given hydralazine however still consistently in 170s-180s 10/29: Still hypertensive, required 4 doses of hydralazine overnight Switched Amlodipine 10 mg to nifedipine 30mg on 11/10, and increased Coreg from 6.25 to 25 mg BID Plan: Nifedipine 60 mg BID and keeping Coreg 25 mg at current dosing Also on torsemide 20 mg BID for hypervolemia - Diffuse pulmonary alveolar hemorrhage Currently stable, no new episodes Has had 6 admissions recently for acute respiratory failure requiring mechanical ventilation Cytoxan was reduced from 150 to 75 mg due to concern for BM toxicity; renally dosed Decreased prednisone from 60 to 40 mg Plan: Continue to monitor respiratory status Continue oxygen therapy Holding Cytoxan in setting of worsening thrombocytopenia Continue Prednisone 40 mg daily Switched bactrim to pentamidine for ppx on 11/12 - Moraxella catarrhalis pneumonia (HCC) Had respiratory cultures growing Moraxella catarrhalis Received ceftriaxone 10/27-11/03- 7 days therapy WBC trended down from 21 K to 12K. Plan: Continue to monitor respiratory status closely BPH per RT Incentive spirometry - Peripheral neuropathy - History of heparin-induced thrombocytopenia Avoid all heparin products. Bridged to coumadin with bivalirudin VM following and recs appreciated - Anticoagulation management encounter - Weakness of left leg 11/02 Left leg weakness/parasthesia Likely related to lumbar nerve compression from large retroperitoneal hematoma Neurology was following, recommended no further intervention On gabapentin renally dosed. - Left groin pain 10/27: C/o acute painin morning, access site for embolization at [facility], no erythema or induration appreciated on exam, exquisitely TTP Groin study showed no signs of PSA, known AV fistula visualized with retrograde flow, vascular med aware- no further recs 10/28: pain less severe, no physical exam findings Repeat Leg DVT shows no pseudoaneurysm Likely due to nerve compression/RP hematoma causing compressive symtpoms S/p R groin drain placed at [facility] on 10/24 s/p L groin drain placed at [facility] during embolization on 10/26 Plan: - repeat image showed decreased size of hematoma - will continue to monitor symptoms and HANDH w low threshold for imaging Physical Examination BP 152/87 Pulse 100 Temp 36.6 ?C (97.9 ?F) (Oral) Resp 18 Ht 160 cm (5' 3) Wt 110.1 kg (242 lb 11.6 oz) SpO2 95% BMI 43.00 kg/m? General: Alert, oriented, cooperative.?In no acute distress. 5L NC Skin:?Chronic skin changes on bilateral LE below the knee?consistent with chronic lymphedema HEENT: EOM. Pupils equal, round and reactive Cardiovascular: RRR. No murmur Chest: TTP over lower left chest Lungs: Mild crepitations at the bases, improved from prior Abdomen: Soft, no TTP in LUQ or anterior ribs, no masses or organomegaly. Varicose veins bilaterally. Extremities: 2+ peripheral edema but improving,?+2 DP pulses bilaterally Neurological: Moving all extremities freely? Operations During Hospitalization: None Procedures During Hospitalization: 10/26/17: Visceral/lumbar arteriography and embolization FINDINGS: Left L1, L2 and L3 arteriography. No active bleeding. Recent CT suggested bleeding from left L2 - empiric embolization done left L2 branch with gelfoam slurry and coils. Additional coils were added to left L3 obove the previously placed coils. Apheresis 11/03/17, 11/13/17, 11/27/17 Discharge Instructions: Discharge Instructions Provided. Transitions of Care Critical Issues: IMAGING FOLLOW-UP: CXR 12/11 CT Abdomen/Pelvis when appropriate to ensure resolution of her hematoma LAB MONITORING NEEDED: Per Vascular Medicine: Daily CBC/platelet, INR in the AM; adjust coumadin dosing accordingly. Her INR the morning of discharge (12/02) was 3.2. She will need a dose less than 5 mg of coumadin this evening. Please adjust accordingly. SPECIALIST FOLLOW-UP: Vascular Medicine, Pulmonary, Hematology, Cardiology, Nephrology Apheresis: 12/11, 12/25, 01/08, 01/22 FERNANDES MEDICATION CHANGES: -Stop taking Bactrim. Instead, start taking pentamidine 300 mg inhalation q1hluen. Next one due 12/11/17 - Stop hydromorphone. Take Oxycodone IR PO 5mg q3h PRN - Coumadin 5 mg qday for anticoagulation. For the two days following PLEX, she is instructed to take 7.5 mg daily. -If Rehab has any questions in regards to coumadin dosing please instruct to call Magdalena Lewis CNP (Vascular Medicine) [phone] -At discharge from rehab please instruct patient to contact Magdalena Lewis CNP [phone] (Vascular Medicine) for coumadin instructions - Dose change: Gabapentin 100 mg TID--> Gabapentin 400 mg TID - Stop taking Cytoxan (Cyclophosphamide). Dr. Andujar (hematology) will decide at her next outpatient visit when it is appropriate to restart. - Dose change: prednisone 5 mg --> prednisone [address] Andujar (hematology) will decide at her next outpatient visit when it is appropriate to restart. - Torsemide 20 mg BID - Continue with bilateral LE wraps with leg elevation when possible to help with LE edema Patient Condition @ Discharge: Stable Discharge Disposition: Rehabilitation Hospital Discharge Medications: Current Discharge Medication List START taking these medications carvedilol (COREG) 25 mg 25 mg by ORAL/FEEDING TUBE route twice daily with meals. acetaminophen (TYLENOL) 1,000 mg Take 1,000 mg by mouth three times daily. oxyCODONE IR (ROXICODONE) 5 mg 5 mg by ORAL/FEEDING TUBE route every 4 hours as needed. Earliest Fill Date: 12/02/17 Associated Diagnoses:Retroperitoneal hematoma; Polyneuropathy associated with underlying disease (HCC); Left groin pain NIFEdipine ER (PROCARDIA XL) 60 mg Take 60 mg by mouth twice daily. hydrocortisone sodium succinate (PF) (Solu-CORTEF) 100 mg Inject 100 mg intravenously every 4 hours as needed (to be given prior to transfusion). torsemide (DEMADEX) 20 mg Take 20 mg by mouth twice daily. !! cyclobenzaprine (FLEXERIL) 10 mg Take 10 mg by mouth daily at bedtime. !! cyclobenzaprine (FLEXERIL) 10 mg Take 10 mg by mouth twice daily as needed (Left lower back pain + spasm). gnedbrumioOTCRO-pxekyh-dndrzxlen (BMX 1:1:1) 10 mL Take 10 mL by mouth every 2 hours as needed (for mouth or tongue pain). pentamidine (NEBUPENT) 300 mg Inhale 300 mg as instructed q 4 WEEKS. albuterol (PROVENTIL) 2.5 mg Use 2.5 mg via nebulizer q 4 WEEKS. hyoscyamine sublingual (LEVSIN SL) 0.25 mg Dissolve 0.25 mg under the tongue three times daily as needed (abdominal pain or cramping). polyethylene glycol 3350 (MIRALAX, GLYCOLAX) 17 g 17 g by ORAL/FEEDING TUBE route once daily. docusate sodium (COLACE) 100 mg Take 100 mg by mouth twice daily. warfarin (COUMADIN) 5 mg Take 5 mg by mouth once daily. !! - Potential duplicate medications found. Please discuss with provider. CONTINUE these medications which have CHANGED gabapentin (NEURONTIN) 400 mg Take 400 mg by mouth three times daily. ondansetron (ZOFRAN) 8 mg Take 8 mg by mouth every 8 hours as needed for Nausea/Vomiting. predniSONE (DELTASONE) 40 mg 40 mg by ORAL/FEEDING TUBE route once daily. fluticasone (FLONASE) 1-2 Sprays Use 1-2 Sprays in each nostril once daily as needed for Cold/Allergy Symptoms (starting in allergy season). pantoprazole DR (PROTONIX) 40 mg Take 40 mg by mouth daily at bedtime. diphenhydrAMINE (BENADRYL) 50 mg 50 mg by ORAL/FEEDING TUBE route every 6 hours as needed for Itching/Rash. senna (SENOKOT) 17.2 mg 17.2 mg by ORAL/FEEDING TUBE route twice daily. STOP taking these medications cyclophosphamide (CYTOXAN) 150 mg Comments: Reason for Stopping: HYDROmorphone 0.5 mg/mL WAITER/[employer]ESS [employer] CLINICIAN DOSE 0.4 mg Comments: Reason for Stopping: sulfamethoxazole-trimethoprim (BACTRIM DS,SEPTRA DS) 1 tablet Comments: Reason for Stopping: Future Appointments: Future Appointments Date Time Provider Department Center 12/11/2017 8:40 AM [id number] [facility] 12[facility]11/2017 8:40 AM [id number] JONES [facility] 12/11/2017 10:45 AM [id number] PARMAR (DIRECTOR OF HOTEL) PERVMN VASM J/S d 12/11/2017 10:45 AM [id number] HANSEN ([facility]) PERVMN VASM J/S d 12/11/2017 12:00 PM [id number] [facility] 12/11/2017 12:20 PM [id number] CHEST MAIN A21 RADMN RADIO A DG 12/11/2017 1:25 PM [id number]-GUILLAUME ALICEA PULM A/E/R/G 12/11/2017 1:25 PM [id number]-PARAMBILGUILLAUME PULM A/E/R/G 12/25/2017 12:00 PM [id number] [facility] [place] 01/04/2018 8:10 AM ERROL BALDWIN) NEPHMN NEPH Q [facility] 01/04/2018 8:10 AM ERROL BALDWIN) NEPHMN NEPH Q DG 01/08/2018 12:00 PM [id number] [facility] [place] 01/22/2018 10:15 AM [id number] PARMAR (DIRECTOR OF HOTEL) PERVMN VASM J/S Bld 01/22/2018 10:15 AM [id number] PARMAR (DIRECTOR OF HOTEL) PERVMN VASM J/S Bld 01/22/2018 12:00 PM [id number] [facility] [place] 02/05/2018 12:00 PM [id number] [facility] [place] SIGNATURE: Olga Reyez MD PATIENT NAME: Paloma Cannon DATE: November 30, 2017 TIME: 5:53 PM PAGER: [id number] THERAPY NT Observed: 11/30/2017 Status: COMPLETED Source: [place] 2:44 PM [facility] REPOSITORY HNO ID: [id number] Author: Tamiko (Pt) Adelaida Service: Physical Therapy Author Type: Physical Therapist Type: Therapy (PT/OT/Speech/Resp) Filed: 11/30/2017 2:50 PM Note Text: Physical Therapy Wound/Lymph Treatment SERVICE DATE: 11/30/2017 SERVICE TIME: 1412 to 1438 ROOM: [place] [id number] Recommended Discharge Disposition Comments: will require further assessment Anticipated Discharge Needs: Undetermined PT Recommendations to Nursing: With assist of 1 person;Transfer to/from chair;OOB for Meals 6 Clicks Score: 14 Skin Condition: BLE lymphedema Frequency of Dressing Change:Daily?- compression wraps to be worn during the day hours ?Physical Therapy to Perform Dressing Change: 4x/week to be coordinated with nursing ?Nursing to Perform Dressing Change:1x/day Monday and Monday Dressing/Treatment Type: See Clinical Documentation report for specific dressing information. ASSESSMENT : Patient continues to make good progress with PT lymphedema care. No significant change noted today with respect to the thigh drainage and distal lymphedema. Pt remains appropriate for continued intervention to assist with lymphedema management especially since pt is unable to complete compression wrapping on her own. Patient Disposition at Start of Session: Supine in Bed;Bed Alarm Patient Disposition at End of Session: Supine in Bed;Bed Alarm;Call Wagoner in Reach Tolerated Full Session Fatigue;Pain Physical Therapy Problem List: Cognitive Deficit;Education Deficit;Decreased Activity Tolerance;Decreased Strength;Functional Mobility Impairment Patient /Caregiver Goals: Unique to general PT Goals for Plan of Care: 1. ?Decongestion of BLE?with girth measurements decreased by 2-4?cm per segment to increase level of independence with functional mobility and ADL's, decrease pain, decrease recurrence of infection, improved range of motion and allow appropriate fit in compressive garment. ?? 2. ??Pt and/or caregiver will demonstrate compliance in knowledge of lymphedema precautions including meticulous skin and nail care to reduce risk of infection and further exacerbation. 3. ??Pt and/or caregiver will demonstrate the correct method of Lymphatic Bandaging/compression technique and independent understanding of the principles and theory of compression 4. ??Pt and/or caregiver will be independent in their exercise program to enchance Lymphatic flow and decongestion of the affected body parts 5. Patient/ Caregiver will be able to demonstrate competence with offloading recommendations and pressure relieving strategies 6. Patient/ Caregiver will be able to state the signs and symptoms of infection Progress Toward Goals: Progressing as expected Due To: medical status Rehab Potential: Good PLAN: Treatment Frequency (times per week): 4 Current admission Treatment Interventions: Education;Self Care / Home Management;Joint Mobility;Strengthening;Functional Mobility Training;Balance Training;Edema Management;Pain Management Plan of Care developed with: Patient TREATMENT INTERVENTIONS: Interventions Provided: Manual Therapy (59877) Manual Therapy (38227) Treatment Minutes: 26 2 units Skilled Intervention: Manual skills to improve joint mobility, range of motion, and decrease pain. Educated patient on the following aspect of Complete Decongestive Therapy (CDT): 1.??Compressive Therapy: Discussed rationale for compression garment and bandaging Instructed in proper technique for compression wrapping Skilled interventions: - Increase lymaphtic fluid dynamics - Increase skin extensibility - Utilized anatomy knowledge of the therapist, and assessment of patient's response to intervention. ? Manual Compression performed: 1. ?Skin inspected and?cleansed thoroughly 2. ?Applied lotion?to BLE? 3. ?Applied 1 surgigrip?+ 1 ABD pad at the foot/ ankle + 1?surepress wraps applied at 50% tension?with a 50% overlap (deferred ankle padding today). ? Spoke at length with pt re: when to loosen or remove the bandages (i.e.: in the event that pain becomes a limiting factor or pt experienced new onset SOB or worsening of respiratory status). Pt verbalized understanding. ? Education: 1. ?Discussed with patient and nursing the risks and benefits of compression therapy and how compression is indicated in this case. 2. ?Reviewed?proper technique for compression wrapping.? Total Timed Code Treatment Minutes: 26 Total Treatment Time (minutes): 26 SUBJECTIVE: Current Hospital Course: Chart reviewed and no significant medical updates relevant to therapy were noted Patient Report: Pt offering concerns about her pain management. 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 Entry To Home: No Stairs Number Of Stairs To Bed/Bath: 0 Tub/Shower Type: walk in shower Equipment Owned: Commode-Raised;Grab Bars-Shower;Grab Bars-Toilet;Shower Chair;Home Oxygen Prior Functional Level: Required Assistance Assistance Required With: Cleaning;Laundry;Meals;Shopping;Transportation Prior Wound Care: Other: See Comment (unable to don compression stockings (I)) OBJECTIVE: LLE Circumferential Measurements: Metatarsal Heads;Ankle;10 cm;20 cm;30 cm Left Metatarsal Heads: 22.5cm Left Ankle: 25.5cm Left Lower Extremity 10cm: 26cm Left Lower Extremity 20cm: 38.5cm Left Lower Extremity 30cm: 45cm RLE Circumferential Measurements: Metatarsal Heads;Ankle;10 cm;20 cm;30 cm Right Metatarsal Heads: 24.25cm Right Ankle: 24.5cm Right Lower Extremity 10cm: 26.5cm Right Lower Extremity 20cm: 40cm Right Lower Extremity 30cm: 48.75cm Sensation Sensation: Right Lower Extremity;Left Lower Extremity Right Lower Extremity Sensation: Light Touch RLE Light Touch: Intact Left Lower Extremity Sensation: Light Touch LLE Light Touch: Intact Circulation Pulses: Right Dorsalis Pedis;Left Dorsalis Pedis Right Dorsalis Pedis Pulse: (unable to palpate due to lymphedema; present via doppler) Left Dorsalis Pedis Pulse: (unable to palpate due to lymphedema; present via doppler) Capillary Refill: Right Lower Extremity;Left Lower Extremity Right Lower Extremity Capillary Refill: Intact Left Lower Extremity Capillary Refill: Intact See Clinical Documentation report for Skin Documentation. Current Functional Mobility Assist Level Additional Information Rolling Contact Guard Assistance Supine to Sit Contact Guard Assistance Sit to Supine Moderate Assistance (BLE) Scooting Contact Guard Assistance Sit to Stand Minimal Assistance Stand to Sit Minimal Assistance Bed to Chair Minimal Assistance Toilet/Commode Minimal Assistance Gait Minimal Assistance Gait Device: Wheeled Walker Gait Distance (feet): 4' x 2 General Gait Deviations: Delmy decreased;Step length decreased;Wide base of support Balance: Static Sitting;Dynamic Sitting;Static Standing;Dynamic Standing Static Sitting Balance: Stand By Assistance Dynamic Sitting Balance: Contact Guard Assistance Static Standing Balance: Minimal Assistance Dynamic Standing Balance: Minimal Assistance Please see discipline specific clinical documentation flowsheet for complete details for this therapy evaluation/treatment. SIGNATURE: Tamiko Son PT PATIENT NAME: Paloma Cannon DATE: November 30, 2017 TIME: 2:44 PM PAGER/CONTACT #: [phone] CASE MANAGEM Observed: 11/30/2017 Status: COMPLETED Source: [place] 12:43 PM [facility] REPOSITORY HNO ID: [id number] Author: Jacinta SanchezRn) JEFF Olmedo Service: Care Management Author Type: Registered Nurse Type: Care Mgt Progress Note Filed: 11/30/2017 12:43 PM Note Text: CARE MANAGEMENT PROGRESS NOTE SERVICE DATE: 11/30/2017 SERVICE TIME: 12:43 PM LOS: 36 days Needs Prior to Discharge: Precertification : Dc tomorrow to [facility] pending precert. (started 11/28) At direction of AKILAH Easton [facility] AKILAH Gutiérrez (p) [phone] DM t/p set for 1p. . Per , at tx pt will need apheresis q 2 weeks indefinitely and close daily lab montoring of blood status for possible need for transfusion . Current on , [facility] [address] [facility] Yang CM is Elsa Matos (p) Per bolivar Hunter phone # is [phone]. CM to continue to follow SIGNATURE: Jacinta Olmedo RN PATIENT NAME: Paloma Cannon DATE: November 30, 2017 TIME: 12:43 PM PAGER/CONTACT #: [phone] ALLIED HEALTH Observed: 11/30/2017 Status: COMPLETED Source: [place] 12:34 PM [facility] REPOSITORY HNO ID: [id number] Author: Negrito Kelley (Therapist) Miranda Service: Art Therapy Author Type: Therapist Type: Allied Health Filed: 12/01/2017 3:55 PM Note Text: ART THERAPY NOTE SERVICE DATE: 11/30/2017 SERVICE TIME: 11:30 Referred By: PT Reason for Referral: anxiety Session Type: Initial Time Spent (minutes): 60 Goals: Coping Through Diversion;Decision Making;Diversion From Pain;Feelings Translated Into Images;Reduce Anxiety Interventions: Art Based Therapy Response Before After Mood 08/13 07/13 Anxiety 2/10 0/10 Pain 9/10 8/10 Scale: 0 = No pain/anxiety 10 = Worst possible pain/anxiety Response: Media Used: Paints Patient's Verbal Response: Positive Family Present: No Outcome: Goals: Met Goals Met: Coping Through Diversion;Decision Making;Diversion From Pain;Media Experimentation;Normalization;Reduce Anxiety Follow Up: Will Follow Up as Able COMMENTS: Pt awake and alert upon attempt. Agreeable to session to assist with coping. Pt set intention of explore for session. Pt receptive to experiment with fluid ink on ceramic. After brief introduction to media, pt engaged independently. Verbalized spontaneously and when prompted. Pt processed frustration and feeling powerless regarding level of pain. Pt identified variety of coping skills. Pt shared her POV as live for today, nothing is promised. Pt shared benefit of choosing positive thinking, moving forward instead of wallowing. Upon completion of image, pt titled artwork Depth of Emotion and shared meaning. Pt identified spiky area of image to represent her pain. Pt represented and processed variety of emotions and impact of pain. Pt thanked AT for session. No further needs expressed. SIGNATURE: Negrito Jean, ATR-BC, PC PATIENT NAME: Paloma Cannon DATE: November 30, 2017 TIME: 12:34 PM PAGER/CONTACT #: [phone] THERAPY NT Observed: 11/30/2017 Status: COMPLETED Source: [place] 9:45 AM [facility] REPOSITORY HNO ID: [id number] Author: Zahra Burks (Cota-L) Service: Occupational Therapy Author Type: Weigh And Charge Worker Type: Therapy (PT/OT/Speech/Resp) Filed: 11/30/2017 9:57 AM Note Text: Occupational Therapy Treatment SERVICE DATE: 11/30/2017 SERVICE TIME: 826 [facility]: [facility] Recommended Discharge Disposition: Acute Rehab Justification For Post Acute Needs: Anticipate patient will tolerate 3 hours of daily therapy at the time of admission to post-acute setting;Anticipated community discharge;Cognition intact;Good family support;Good premorbid functional status;Good sitting tolerance;Medically complex;Motivated;Willing to participate;Anticipate that patient will require daily (5x/wk) skilled therapy in a post-acute facility setting at the time of acute hospital discharge Anticipated Discharge Needs: Undetermined OT Recommendations to Nursing: ADL?s in chair;Bedside Commode for Toileting;With assist of 2 people Equipment: (TBD) OT 6 Clicks Score: 19 Precautions/Activity Restrictions: Fall Risk;Lines/Tubes/Drains ASSESSMENT: Patient presents with increased o2 needs and pain this session compaired to previous. Pt required increased time with frequent rest breaks to accommodate pain. Pt demonstrated increased difficulty (pt reported) with standing tolerance. Demonstrated shortness of breath at end of session while sitting at EOB following standing trails and short ambulation while attempting to start engagement in HEP,modified session. Requires skilled OT to improve overall activity tolerance, safety, and use of adaptive techniques to improve functional performance with I/ADLs. Patient Disposition at Start of Session: Supine in Bed Patient Disposition at End of Session: Supine in Bed. BLE elevated with FOB and use of pillows under each leg to assist with decreasing edema. Call light in reach. Tolerance Limited By Pain Occupational Therapy Problem List: Edema;Impaired Self Care;Decreased Activity Tolerance;Decreased Strength;Functional Mobility Impairment;Balance Impaired Patient /Caregiver Goals: Go Home Goals for Plan of Care: Able to perform HEP with: Modified Independent (PROGRESSING) Grooming with: Modified Independent (PROGRESSING) Upper Body Bathing with: Modified Independent Upper Body Dressing with: Modified Independent Lower Body Bathing with: Modified Independent Lower Body Dressing with: Modified Independent (PROGRESSING) Toilet Hygiene with: Modified Independent Toilet Transfer with: Modified Independent Tolerate (minutes of functional activity): (MET) Functional Activity with: Modified Independent (PROGRESSING) Demonstrate Positive Coping Strategies with: Modified Independent (PROGRESSING) Demonstrate Competence With Education with: Modified Independent Progress Toward Goals: Progressing as expected Rehab Potential: Excellent PLAN: Treatment Frequency (times per week): 2 (+ 2 PRN per week) Current admission Treatment Interventions: Education;Self Care / Home Management;Energy Conservation Training;Strengthening;Functional Mobility Training;Balance Training;Edema Management;Pain Management Plan of Care developed with: Patient TREATMENT INTERVENTIONS: Therapy Diagnosis: Decreased activities of daily living (ADL) Interventions Provided: Therapeutic Activity (38112) Therapeutic Activity (15078) Treatment Minutes: 73 5 units Skilled Intervention(s): Instructed pt on bed mobility moving from supine to seated at EOB. HOB slightly elevated, provided SBA. Facilitated discussion of hospital course over past week to promote coping and discuss missed visits of prior OT attempts. Facilitated communication regarding feelings, pain, and obstacles. Provided positive affirmation of feelings and facilitated cognitive reframining for positive outlook. Discussed home arrangement/living situation and assist available. Instructed pt on sit-stand transfer followed by short functional mobility from EOB to window ledge to engage in leisure based game while standing. Provided min A for transfer with use of gait belt and FWW. Pt tolerated standing x1:45' and x4:36' requiring seated rest break following each trial on BSC. Instructed pt on pursed lip breathing and relaxation. Instructed pt on sit-stand transfer from C, 2xs, with CGA- min A and use of gait belt. Provided CGA during mobility from BSC to EOB with FWW and gait belt. Provided min v.c.'s for navigation and management of O2 lines. Instructed pt on pursed lip breathing exercise x4' to promote relaxation and decreased shortness of breath. Instructed pt on 1 UB ex using level I therapy band. Pt completed 5 reps and unable to tolerate further engagement due to fatigue. Provided mod A with bed mobility moving from seated at EOB to supine. Total Timed Code Treatment Minutes: 73 Total Treatment Time (minutes): 73 FUNCTIONAL G CODE: OT 6 Clicks Score: 19 (11/30/17826) Self Care Current Status (G8987): CK (11/30/17826) Self Care Goal Status (G8988): CJ (11/30/17826) Based on clinical assessment and the score on the 6 Clicks Functional Assessment Tool, the G code and corresponding severity modifiers are documented above. SUBJECTIVE: Current Hospital Course: Chart reviewed; Pt with increased O2 needs and productive cough. Reason for Occupational Therapy Consult: decr adl performance, coping Relevant Past Medical History: DAH, CAPRICE HIT, CKD, HF, HTN, polyneuropathy Patient Report: Reports increased pain due to decrease in pain regimen. 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 Entry To Home: No Stairs Number Of Stairs To Bed/Bath: 0 Tub/Shower Type: walk in shower Equipment Owned: Commode-Raised;Grab Bars-Shower;Grab Bars-Toilet;Shower Chair;Home Oxygen Prior Functional Level: Required Assistance Assistance Required With: Cleaning;Laundry;Meals;Shopping;Transportation Prior Wound Care: Other: See Comment (unable to don compression stockings (I)) OBJECTIVE: Orientation Deficits: Other: See Comment (Improved orientation to self and situation. NA time/day) Responsiveness: Alert Follows Commands: 3-step Commands;Cueing Needed Cueing to Follow Commands: Minimum Psychosocial Deficit: depressed, anxious CURRENT FUNCTIONAL STATUS: Current Activities of Daily Living Assist Level Feeding Set Up Grooming Set Up Bathing Upper Body Minimal Assistance Bathing Lower Body Moderate Assistance Dressing Upper Body Minimal Assistance Dressing Lower Body Total Assistance Toileting Moderate Assistance Instrumental Activities of Daily Living Assist Level Meal/Beverage Prep Light Cleaning Laundry Medication Management with Strategies Supervision Functional Mobility Assist Level Rolling Minimal Assistance Supine to Sit Supervision Sit to Supine Moderate Assistance Scooting Minimal Assistance Sit to Stand Minimal Assistance Stand to Sit Minimal Assistance Bed to Chair Minimal Assistance Stand Pivot Wheeled Walker Toilet/Commode Minimal Assistance Functional Mobility Please see discipline specific clinical documentation flowsheet for complete details for this therapy evaluation/treatment. SIGNATURE: ELROY Perez PATIENT NAME: Paloma Cannon DATE: November 30, 2017 TIME: 9:47 AM PAGER: [phone] PROTIME Collected: 11/30/2017 Status: F Source: [place] 8:34 AM [facility] [place] REPOSITORY TYPE CODE TESTS RESULT OUT OF RANGE REFERENCE UNITS LAB PSEC 9.7-13.0 sec High PT Sec 25.8 LAB INR 0.9-1.3 High PT INR 2.6 Result Comment: Vitamin K Antagonist (VKA) Therapeutic Range: INR 2 to 3 (Target INR of 2.5) Note: For patients treated with VKA drugs, such as warfarin, the [place] 2012 Guideline recommends a therapeutic INR range of 2 to 3 (target INR of 2.5). This recommendation includes high-risk patients with antiphospholipid syndrome with previous arterial or venous thromboembolism, current-generation mechanical or bioprosthetic aortic heart valve replacement. Note: Patients with mechanical aortic valve replacement and additional risk factors for thromboembolic events (atrial fibrillation, previous thromboembolism, LV dysfunction, hypercoagulable conditions) or an older generation mechanical AVR (i.e., ball in-Cage) or any mechanical MVR should have a INR therapeutic range of 2.5 to 3.5 (target INR of 3). Michael GH, et al. Chest 2012, 141:7S-47S Diogenes RA, et al. [facility] 2017, 70: 252-289 Performed By: #### PT, PTTAC #### [facility] [address] [id number] PTT,ANTICOAG THERAPY Collected: 11/30/2017 Status: F Source: [place] 8:34 AM [facility] REPOSITORY TYPE CODE TESTS RESULT OUT OF RANGE REFERENCE UNITS LAB APTT 23.0-32.4 sec High APTT 52.6 Result Comment: Unfractionated Heparin Therapeutic Ranges: Standard Heparin Nomogram: 53 to 78 seconds (anti-Xa level of 0.3 to 0.7 U/ml) Low Dose/ACS Nomogram: 49 to 67 seconds (anti-Xa level of 0.2 to 0.5 U/ml) Stroke Treatment Nomogram: 49 to 67 seconds (anti-Xa level of 0.2 to 0.5 U/ml) Note: The APTT therapeutic range has been determined for the current lot of laboratory APTT reagent in use throughout the [facility]. Performed By: #### PT, PTTAC #### [facility] [address] [id number] NURSING PROG Observed: 11/30/2017 Status: COMPLETED Source: [place] 7:55 AM [facility] REPOSITORY HNO ID: [id number] Author: Krysten Sauer) JEFF Morgan Service: Nursing Author Type: Registered Nurse Type: Nursing Progress Note Filed: 11/30/2017 7:59 AM Note Text: Nursing Progress Note Patient Name: Paloma Cannon Patient Location: H080 015/H080-16 Daily Note: Pt AANDox3. Pt c/o left side pain. Medicated per SEP. Bed at the lowest position. Fall/safety precaution in place. Hourly round done by staff. Call light within reach. Will continue to monitor. This note was completed by: Krysten Morgan RN CONSULT PROG Observed: 11/30/2017 Status: COMPLETED Source: [place] 7:30 AM [facility] [place] REPOSITORY HNO ID: [id number] Author: Harika Almaguer) CY Higuera Service: Vascular Medicine Author Type: Physician Satellite Tv Technician Installer Type: Consult Progress Note Filed: 11/30/2017 1:02 PM Note Text: VASCMED CONSULT PROGRESS NOTE Subjective Follow Up Regarding: APS, remote hx of HIT INTERVAL HPI and PERTINENT ROS: No acute overnight event. She denies hemoptysis, epistaxis, hematuria, hematochezia, or melena. Working with physical therapy. No wraps today. Hb.7 Platelets: 158 INR: 2.6 off bival Current Facility-Administered Medications: senna 17.2 mg tab(s) (SENOKOT) 17.2 mg ORAL/FEEDING TUBE BID torsemide 20 mg tab(s) (DEMADEX) 20 mg ORAL 2 times per day oxyCODONE IR 5 mg tab(s) (ROXICODONE) 5 mg ORAL/FEEDING TUBE q 3 H PRN sodium citrate 4% 3-6 mL catheter lock 3-6 mL INTRALUMINAL APHERESIS PRN lidocaine 5 % 1 Patch (LIDODERM) 1 Patch TRANSDERMAL DAILY And lidocaine patch - REMOVE OTHER AT BEDTIME And lidocaine - VERIFY PATCH OTHER q 8 H warfarin order for discharge OTHER PRN hyoscyamine sublingual 0.25 mg tab(s) (LEVSIN SL) 0.25 mg SUBLINGUAL TID PRN [id number]-izkninitf 10 mL oral liquid (BMX 1:1:1) 10 mL ORAL q 2 H PRN gabapentin 400 mg cap(s) (NEURONTIN) 400 mg ORAL TID cyclobenzaprine 10 mg tab(s) (FLEXERIL) 10 mg ORAL AT BEDTIME cyclobenzaprine 10 mg tab(s) (FLEXERIL) 10 mg ORAL BID PRN NIFEdipine ER 60 mg tab(S) (PROCARDIA XL) 60 mg ORAL BID predniSONE 40 mg tab(s) (DELTASONE) 40 mg ORAL/FEEDING TUBE DAILY acetaminophen 1,000 mg tab(s) (TYLENOL) 1,000 mg ORAL TID 0.9% NaCl 10 mL 10 mL INTRAVENOUS q 12 H 0.9% NaCl 20 mL 20 mL INTRAVENOUS PRN albuterol 2.5 mg /3 mL (0.083 %) 2.5 mg (PROVENTIL) 2.5 mg INHALATION q 4 WEEKS And pentamidine 300 mg nebulizer solution (NEBUPENT) 300 mg INHALATION q 4 WEEKS carvedilol 25 mg tab(s) (COREG) 25 mg ORAL/FEEDING TUBE BID w MEALS lidocaine 5 % 1 Patch (LIDODERM) 1 Patch TRANSDERMAL DAILY And lidocaine patch - REMOVE OTHER AT BEDTIME And lidocaine - VERIFY PATCH OTHER q 8 H polyethylene glycol 3350 17 g packet (MIRALAX, GLYCOLAX) 17 g ORAL/FEEDING TUBE DAILY docusate sodium 100 mg cap(s) (COLACE) [address] BID [address]op[address] 40 mg tab(s) (PROTONIX) 40 mg ORAL DAILY (6 AM) ondansetron 8 mg tab(s) (ZOFRAN) 8 mg ORAL q 8 H PRN diphenhydrAMINE 50 mg (BENADRYL) 50 mg ORAL/FEEDING TUBE q 6 H PRN hydrocortisone sodium succinate (PF) 100 mg injection (Solu- CORTEF) 100 mg INTRAVENOUS q 4 H PRN diphenhydrAMINE 50 mg injection (BENADRYL) 50 mg INTRAVENOUS q 4 H PRN prochlorperazine 5 mg injection (COMPAZINE) 5 mg INTRAVENOUS q 6 H PRN dextrose 50% in water 25-50 mL syringe 12.5-25 g INTRAVENOUS PRN dextrose 40 % 15 g 15 g ORAL PRN glucagon 1 mg injection (GLUCAGEN) 1 mg SUBCUTANEOUS PRN Objective PHYSICAL EXAM: BP 135/73 Pulse 92 Temp 37.1 ?C (98.8 ?F) (Oral) Resp 18 Ht 160 cm (5' 3) Wt 109.5 kg (241 lb 6.5 oz) SpO2 94% BMI 42.76 kg/m? General: alert and oriented x3, NAD Cardiac: RRR Respiratory: clear B/L Abdominal/GI: soft, non-tender Extremity: wraps off working with PT, +2-3 LE edema Skin: warm, dry Pulse/vascular exam: B/L + 2 rad/pt DATA: Diagnostic tests reviewed for today's visit: Most recent labs and imaging results. 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 ??Other pertinent past medical history include HF and CKD. ?Her warfarin is followed by given her APS. ?Dr. Andujar manages her APS/plasmapheresis. Pt w/prolonged admission after RP bleed over 1 month ago. Now rebridging bival to warfarin. Plan discussed with Yuniel Rodriguez MD: _Bridge completed, bival can be discontinued _INR off bival 2.6 (target 2.0-3.0) _Recommend Warfarin 5mg x1 tonight _Daily CBC/platelet, INR in the AM _Please continue with bilateral LE wraps with leg elevation when possible to help with LE edema _[facility] follows warfarin outpatient _Will schedule FU with vascular medicine _Dispo Instructions: Rehab per primary team -Rehab physician to monitor check INR daily and adjust coumadin dosage accordingly (usually patient scheduled is 5mg daily except after plex 2 days of 7.5mg) -If Rehab has any questions in regards to coumadin dosing please instruct to call Magdalena [facility] [phone] -At discharge from rehab please instruct patient to contact Magdalena Lewis [facility] [phone] for coumadin instructions -VM will sign off, please call if new questions/concerns arise at pager [phone] SIGNATURE: CY Argueta PATIENT NAME: Paloma Cannon DATE: November 30, 2017 TIME: 7:33 AM PAGER/CONTACT #: [phone] . PROGRESS Observed: 11/30/2017 Status: COMPLETED Source: [place] 5:41 AM [facility] REPOSITORY O ID: [id number] Author: Olga Reyez Service: General Internal Medicine Author Type: Resident Type: Progress Notes Filed: 11/30/2017 3:37 PM Note Text: Attestation signed by Zhou Lang at 11/30/2017 6:[address] FRED STONE, SR. HOSPITAL STAFF PHYSICIAN NOTE OF PERSONAL INVOLVEMENT IN CARE I have reviewed the progress note obtained and documented by the resident and I personally participated in the fernandes components. Patient seen and discussed with house staff on rounds. The following comments revise or confirm relevant fernandes components of their note. This morning, our team again addressed Ms. Cannon's pain management. We discussed and agreed that: 1. She is likely to have ongoing pain until sufficient resorption of her retroperitoneal hematoma. 2. Opiates will likely achieve a 30-40% improvement in pain, not complete resolution. 3. As such, we are willing to offer oral opiates to mitigate her pain, provided the doses are administered safely. 4. We will offer oxycodone, with acetaminophen administered separately to allow dose titration (she has previously had reasonable relief with Percocet). 5. We will ensure that she has appropriate pain medications available one hour prior to physical therapy or occupational therapy, to ensure adequate absorption before the most painful period of her day. We will ask that our night team also avoid parenteral opiates in favor of (if indicated) titration of oxycodone. Detailed plan per house staff note. I remain available for questions/discussion, if helpful. SIGNATURE: Zhou Lang MD PAGER: [phone] DATE of SERVICE: 11/30/2017 TIME of SERVICE: 6:38 PM RAF A PROGRESS NOTE For questions regarding this patient today please page [phone] After 5 pm on weekdays and 3pm on weekends and holidays please page documentation clerk pager [phone] SERVICE DATE: 11/30/2017 SERVICE TIME: 5:41 AM INTERVAL HISTORY: - No acute events overnight - She was administered a dose of dilaudid 0.3 mg IV close to 12 AM - HDS, 92-96% on 4L NC - increased her torsemide to 20 mg BID. Uoutput 1.15 L, I/Onet -721 - passed 1 BM yesterday - INR 3.2 today - platelets improving, Hgb stable - sputum culture positive for: Many Gram positive cocci in clusters Rare Gram positive diphtheroid-like bacilli Rare Polymorphonuclear leukocytes. Will wait for speciation. - Per , she will need warfarin 7.5 mg for the two days after plasmapheresis. ? PLAN FOR TODAY - discontinue bivalirudin, recheck INR two hours later - c/w torsemide 20 mg BID unless renal function changes significantly - c/w warfarin 5 mg - monitor for signs of fresh bleeding and new pain (Left RP and abdominal pain) - appreciate VM and heme recs - desaturation study required prior to discharge - next apheresis scheduled for -. May affect coumadin levels. - will hold off on imaging studies to assess for PE given that it will not change managements at this time (already on AC) and given recent history of CAPRICE. - will follow up with outpatient MEDICATIONS: Current hospital medications: senna 17.2 mg tab(s) (SENOKOT) 17.2 mg ORAL/FEEDING TUBE BID torsemide 20 mg tab(s) (DEMADEX) 20 mg ORAL 2 times per day oxyCODONE IR 5 mg tab(s) (ROXICODONE) 5 mg ORAL/FEEDING TUBE q 3 H PRN sodium citrate 4% 3-6 mL catheter lock 3-6 mL INTRALUMINAL APHERESIS PRN lidocaine 5 % 1 Patch (LIDODERM) 1 Patch TRANSDERMAL DAILY lidocaine patch - REMOVE OTHER AT BEDTIME lidocaine - VERIFY PATCH OTHER q 8 H warfarin order for discharge OTHER PRN hyoscyamine sublingual 0.25 mg tab(s) (LEVSIN SL) 0.25 mg SUBLINGUAL TID PRN [id number]-[id number] 10 mL oral liquid (BMX 1:1:1) 10 mL ORAL q 2 H PRN bivalirudin 250 mg in D5W 250 mL (ANGIOMAX) 0.1 mg/kg/hr INTRAVENOUS CONTINUOUS gabapentin 400 mg cap(s) (NEURONTIN) 400 mg ORAL TID cyclobenzaprine 10 mg tab(s) (FLEXERIL) 10 mg ORAL AT BEDTIME cyclobenzaprine 10 mg tab(s) (FLEXERIL) 10 mg ORAL BID PRN NIFEdipine ER 60 mg tab(S) (PROCARDIA XL) 60 mg ORAL BID predniSONE 40 mg tab(s) (DELTASONE) 40 mg ORAL/FEEDING TUBE DAILY acetaminophen 1,000 mg tab(s) (TYLENOL) 1,000 mg ORAL TID 0.9% NaCl 10 mL 10 mL INTRAVENOUS q 12 H 0.9% NaCl 20 mL 20 mL INTRAVENOUS PRN albuterol 2.5 mg /3 mL (0.083 %) 2.5 mg (PROVENTIL) 2.5 mg INHALATION q 4 WEEKS pentamidine 300 mg nebulizer solution (NEBUPENT) 300 mg INHALATION q 4 WEEKS carvedilol 25 mg tab(s) (COREG) 25 mg ORAL/FEEDING TUBE BID w MEALS lidocaine 5 % 1 Patch (LIDODERM) 1 Patch TRANSDERMAL DAILY lidocaine patch - REMOVE OTHER AT BEDTIME lidocaine - VERIFY PATCH OTHER q 8 H polyethylene glycol 3350 17 g packet (MIRALAX, GLYCOLAX) 17 g ORAL/FEEDING TUBE DAILY docusate sodium 100 mg cap(s) (COLACE) 100 mg ORAL BID pantoprazole DR 40 mg tab(s) (PROTONIX) 40 mg ORAL DAILY (6 AM) ondansetron 8 mg tab(s) (ZOFRAN) 8 mg ORAL q 8 H PRN diphenhydrAMINE 50 mg (BENADRYL) 50 mg ORAL/FEEDING TUBE q 6 H PRN hydrocortisone sodium succinate (PF) 100 mg injection (Solu- CORTEF) 100 mg INTRAVENOUS q 4 H PRN diphenhydrAMINE 50 mg injection (BENADRYL) 50 mg INTRAVENOUS q 4 H PRN prochlorperazine 5 mg injection (COMPAZINE) 5 mg INTRAVENOUS q 6 H PRN dextrose 50% in water 25-50 mL syringe 12.5-25 g INTRAVENOUS PRN dextrose 40 % 15 g 15 g ORAL PRN glucagon 1 mg injection (GLUCAGEN) 1 mg SUBCUTANEOUS PRN HOME MEDICATIONS: cyclophosphamide (CYTOXAN) 50 mg capsule Take 150 mg by mouth once daily. diphenhydrAMINE (BENADRYL) 50 mg capsule Take 1 capsule by mouth every 6 hours as needed for Itching/Rash. gabapentin (NEURONTIN) 100 mg capsule Take 1 capsule by mouth three times daily for 7 days. ondansetron (ZOFRAN, HYDROCHLORIDE,) 8 mg tablet Take 8 mg by mouth every 8 hours as needed for Nausea/Vomiting. pantoprazole DR (PROTONIX) 40 mg tablet Take 40 mg by mouth daily at bedtime. sulfamethoxazole-trimethoprim (BACTRIM DS) 800-160 mg per tablet Take 1 tablet by mouth every Monday,Monday,Monday. fluticasone (FLONASE) 50 mcg/actuation nasal spray Use 1-2 Sprays in each nostril once daily as needed for Cold/Allergy Symptoms (starting in allergy season). senna 8.6 mg tab Take 1 tablet by mouth twice daily as needed. PHYSICAL EXAM: VITAL SIGNS Patient Vitals for the past 24 hrs: BP Temp Temp src Pulse Resp SpO2 Weight 11/30/17 0515 135/73 37.1 ?C (98.8 ?F) Oral 92 18 94 % - 11/30/17 0122 142/76 36.3 ?C (97.3 ?F) Oral 93 20 92 % - 11/29/17 2118 139/94 36.5 ?C (97.7 ?F) Oral 100 20 96 % - 11/29/17 1711 140/82 36.7 ?C (98.1 ?F) Oral 91 21 92 % - 11/29/17 1357 153/90 37.1 ?C (98.7 ?F) Oral 106 21 92 % - 11/29/17 0948 134/82 36.7 ?C (98 ?F) Oral 95 20 92 % - 11/29/17 0810 153/96 - - 107 - - - 11/29/17 0553 152/90 36.8 ?C (98.3 ?F) Oral 100 20 97 % 103.5 kg (228 lb 2.8 oz) BP 135/73 Pulse 92 Temp 37.1 ?C (98.8 ?F) (Oral) Resp 18 Ht 160 cm (5' 3) Wt 109.5 kg (241 lb 6.5 oz) SpO2 94% BMI 42.76 kg/m? Temp (24hrs), Av.7 ?C (98.1 ?F), Min:36.3 ?C (97.3 ?F), Max:37.1 ?C (98.8 ?F) INTAKE/OUTPUT Intake/Output Summary (Last 24 hours) at 11/30/17 0541 Last data filed at 11/30/17 0200 Gross per 24 hour Intake 420 ml Output 1150 ml Net -730 ml General: Alert, oriented, cooperative.?In no acute distress. 5L NC Skin:?Chronic skin changes on bilateral LE below the knee?due to lymphedema HEENT: EOM. Pupils equal, round and reactive Cardiovascular: RRR. No murmur Chest: TTP over lower left chest Lungs: Crepitations at the bases than prior Abdomen: Soft, TTP in LUQ, no masses or organomegaly. Varicose veins bilaterally. Extremities: 2+ peripheral edema but improving,?+2 DP pulses bilaterally Neurological: Moving all extremities freely? LAB DATA: CBC, Coags, BMP, Mg, Phos Recent Labs 11/30/17 0435 11/29/17 0405 11/28/17 0530 WBC 6.64 6.26 6.74 HB 10.7* 10.7* 10.9* HCT 33.0* 33.9* 33.9* PLT 158 170 160 INR 3.2* 2.2* 1.9* APTT 68.6* 58.8* 57.7* NA 143 -- 138 K 4.3 -- 3.8 CHLOR 101 -- 98 CO2 27 -- 29 BUN 41* -- 40* CREAT 1.36* -- 1.37* GLUC 84 -- 108* CA 8.4* -- 8.7 P 3.0 -- 3.9 ASSESSMENT AND PLAN: Active Hospital Problems Diagnosis - Retroperitoneal hematoma Retroperitoneal bleed: s/p 7 units PRBCs s/p IR emobolization of left L3 artery at [facility] on 10/23 IR embolization of left L2 and L3 arteries on 10/26 CT abd/pel 10/31: RP bleed stable when compared to previous imaging from 10/27 LDH 1730, haptoglobin <10, Tbili 1.3- concern for hemolysis as well. 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 Has received stenting of IVC and iliacs along with endograft of IVC. 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 C/B extensive RP bleed s/p L2, L3 embolization. N-plate 11/09, 11/13 Received Apheresis on 11/03, 11/13 (heme following); patient is on x3asyba (Mondays), next scheduled for 11/27 11/22: started bivalirudin for bridge to coumadin (on 2.5 alternating w 5 mg coumadin) Plan: Holding Cytoxan 75 mg in setting of worsening thrombocytopenia Continue prednisone 40 mg withpentamidine ppx Appreciate hematology and VM recs c/w with bivalirudin and start coumadin bridge. Bivalirudin and coumadin should overlap for a minimum of 5 days until INR is therapeutic before Bivalirudin can be discontinued - CAPRICE (acute kidney injury) (HCC) CAPRICE on CKD III, 2/2 contrast, improved to S.Cr-1.3 Received IHD during this admission but renal recover and IHD was held Plan: Nephrology following- appreciate recommendations Daily BMPs to watch K, Na and phosphorus levels Renal dosing of medication Avoid excess fluids and nephrotoxic drugs - HTN (hypertension) Mildly decreased systolic function, diastolic function indeterminate on 10/13/17 ECHO. 10/28: Run of SBP in 200s overnight (likely d/t pain), given hydralazine however still consistently in 170s-180s 10/29: Still hypertensive, required 4 doses of hydralazine overnight Switched Amlodipine 10 mg to nifedipine 30mg on 11/10, and increased Coreg from 6.25 to 25 mg BID Plan: Nifedipine 60 mg BID and keeping Coreg 25 mg at current dosing Can consider adding PRN hydralazine for SBP>180 mm Hg, Also on torsemide for volume - Diffuse pulmonary alveolar hemorrhage Currently stable, no new episodes Has had 6 admissions recently for acute respiratory failure requiring mechanical ventilation Cytoxan was reduced from 150 to 75 mg due to concern for BM toxicity; renally dosed Decreased prednisone from 60 to 40 mg Plan: Continue to monitor respiratory status Continue oxygen therapy at 2L NC Holding Cytoxan in setting of worsening thrombocytopenia Continue Prednisone 40 mg daily Switched bactrim to pentamidine for ppx on 11/12 Will reach out to outpatient provider regarding switch to pentamidine from bactrim, per heme recs - Moraxella catarrhalis pneumonia (HCC) Had respiratory cultures growing Moraxella catarrhalis Received ceftriaxone 10/27-11/03- 7 days therapy WBC trended down from 21 K to 12K. Currently at baseline O2 requirement but still slightly tachypneic Completed course of ceftriaxone. Plan: Continue to monitor respiratory status closely BPH per RT Incentive spirometry - Peripheral neuropathy - History of heparin-induced thrombocytopenia Avoid all heparin products. Bridging to coumadin w bivalirudin VM following and recs appreciated - History of HIT (heparin-induced thrombocytopenia) ([facility]) Plan: - Avoid heparin products - Anticoagulation management encounter - Weakness of left leg 11/02 Left leg weakness/parasthesia Likely related to lumbar nerve compression from large retroperitoneal hematoma Neurology was following, recommended no further intervention On gabapentin renally dosed. - Left groin pain 10/27: C/o acute painin morning, access site for embolization at [facility], no erythema or induration appreciated on exam, exquisitely TTP Groin study showed no signs of PSA, known AV fistula visualized with retrograde flow, vascular med aware- no further recs 10/28: pain less severe, no physical exam findings Repeat Leg DVT shows no pseudoaneurysm Likely due to nerve compression/RP hematoma causing compressive symtpoms S/p R groin drain placed at [facility] on 10/24 s/p L groin drain placed at [facility] during embolization on 10/26 Plan: - repeat image showed decreased size - will continue to monitor symptoms and HANDH w low threshold for imaging MAINTENANCE: VTE PROPHYLAXIS:?coumadin NEED FOR ZUNIGA- Removed 11/14/17 LINES: Double lumen dialysis catheter 10/25/17 Dispo-?Acute rehabilitation center This note is not final until staffed by the attending physician and authenticated by responsible provider. SIGNATURE: Olga Reyez MD PATIENT NAME: Paloma Cannon DATE: November 30, 2017 TIME: 5:41 AM PAGER: [phone] CBC Collected: 11/30/2017 Status: F Source: [place] 4:35 AM [facility] REPOSITORY TYPE CODE TESTS RESULT OUT OF REFERENCE UNITS RANGE LAB WBC 3.70-11.00 k/uL WBC 6.64 LAB RBC 3.90-5.20 m/uL Low RBC 3.28 LAB HGB 11.5-15.5 g/dL Low Hemoglobin 10.7 LAB HCT 36.0-46.0 % Low Hematocrit 33.0 LAB MCV 80.0-100.0 fL MCV High 100.6 LAB MCH 26.0-34.0 pG MCH 32.6 LAB MCHC 30.5-36.0 g/dL MCHC 32.4 LAB RDWCV 11.5-15.0 % RDW-CV High 20.3 LAB PLTCT 150-400 k/uL Platelet Count 158 LAB MPV 9.0-12.7 fL MPV 10.1 LAB ABSNUC <0.01 k/uL Absolute High nRBC 0.02 Performed By: #### CBC, PT, PTT, RFP #### [facility] [address] [place], [place] [address] PROTIME Collected: 11/30/2017 Status: F Source: [place] 4:35 AM [facility] REPOSITORY TYPE CODE TESTS RESULT OUT OF RANGE REFERENCE UNITS LAB PSEC 9.7-13.0 sec High PT Sec 30.6 LAB INR 0.9-1.3 High PT INR 3.2 Result Comment: Vitamin K Antagonist (VKA) Therapeutic Range: INR 2 to 3 (Target INR of 2.5) Note: For patients treated with VKA drugs, such as warfarin, the [place] [employer] 2012 Guideline recommends a therapeutic INR range of 2 to 3 (target INR of 2.5). This recommendation includes high-risk patients with antiphospholipid syndrome with previous arterial or venous thromboembolism, current-generation mechanical or bioprosthetic aortic heart valve replacement. Note: Patients with mechanical aortic valve replacement and additional risk factors for thromboembolic events (atrial fibrillation, previous thromboembolism, LV dysfunction, hypercoagulable conditions) or an older generation mechanical AVR (i.e., ball in-Cage) or any mechanical MVR should have a INR therapeutic range of 2.5 to 3.5 (target INR of 3). Michael GH, et al. Chest 2012, 141:7S-47S Diogenes RA, et al. [facility] 2017, 70: 252-289 Performed By: #### CBC, PT, PTT, RFP #### [facility] [address] [place], [place] [address] APTT Collected: 11/30/2017 Status: F Source: [place] 4:35 AM [facility] REPOSITORY TYPE CODE TESTS RESULT OUT OF RANGE REFERENCE UNITS LAB APTT 23.0-32.4 sec High APTT 68.6 Result Comment: Unfractionated Heparin Therapeutic Ranges: Standard Heparin Nomogram: 53 to 78 seconds (anti-Xa level of 0.3 to 0.7 U/ml) Low Dose/ACS Nomogram: 49 to 67 seconds (anti-Xa level of 0.2 to 0.5 U/ml) Stroke Treatment Nomogram: 49 to 67 seconds (anti-Xa level of 0.2 to 0.5 U/ml) Note: The APTT therapeutic range has been determined for the current lot of laboratory APTT reagent in use throughout the [facility]. Performed By: #### CBC, PT, PTT, RFP #### [facility] [address] [place], [place] [address] RENAL FUNCTION PANEL Collected: 11/30/2017 Status: F Source: [place] 4:35 AM [facility] REPOSITORY TYPE CODE TESTS RESULT OUT OF REFERENCE UNITS RANGE LAB ALB 3.9-4.9 g/dL Low Albumin 3.3 LAB CA 8.5-10.2 mg/dL Low Calcium, Total 8.4 LAB PHOS 2.7-4.8 mg/dL Phosphorus 3.0 LAB GLU 74-99 mg/dL Glucose 84 Result Comment: The [place] [employer] (ADA) provides guidance for cutoff values for fasting glucose and random glucose. The ADA defines fasting as no caloric intake for at least 8 hours. Fas ting plasma glucose results between 100 to 125 mg/dL indicate increased risk for diabetes (prediabetes). Fasting plasma glucose results greater than or equal to 126 mg/dL meet the criteria for diagnosis of diabetes. In the absence of unequivocal hyperglycemia, results should be confirmed by repeat testing. In a patient with classic symptoms of hyperglycemia or hyperglycemic crisis, random plasma glucose results greater than or equal to 200 mg/dL meet the criteria for diagnosis of diabetes. Reference: Standards of Medical Care in Diabetes 2016, [place] [employer]. Diabetes Care. 2016.39(Suppl 1). LAB BUN 7-21 mg/dL BUN High 41 LAB CRET 0.58-0.96 mg/dL Creatinine High 1.36 LAB NA 136-144 mmol/L Sodium 143 LAB K 3.7-5.1 mmol/L Potassium 4.3 LAB CL 97-105 mmol/L Chloride 101 LAB CO2 22-30 mmol/L CO2 27 LAB AGAP 9-18 mmol/L Anion Gap 15 LAB GFRAA eGFR- Amer. 56 LAB GFRNAA . eGFR-All Other Races 46 Result Comment: eGFR (Estimated GFR) Units of measure: mL/min/1.73 meters squared eGFR is derived from the reexpressed MDRD Study equation using the following parameters: serum creatinine, age, gender and race. The creatinine assay has been calibrated to be traceable to IDMS. An eGFR <60 mL/min/1.73m2 for >3 months is consistent with chronic kidney disease. Refer to KDOQI guidelines for clinical interpretation. In patients with unstable renal function, e.g. those with acute kidney injury, the eGFR may not accurately reflect actual GFR. Performed By: #### CBC, PT, PTT, RFP #### [facility] [address] [place], [place] [address] TYPE AND SCREEN Collected: 11/30/2017 Status: F Source: [place] 4:35 AM [facility] REPOSITORY TYPE CODE TESTS RESULT OUT OF REFERENCE UNITS RANGE LAB %ABR B ABO/RH(D) POSITIVE LAB % Antibody POS Screen Performed By: #### TSCR #### [facility] [address] [place], [place] [address] NURSING PROG Observed: 11/29/2017 Status: COMPLETED Source: [place] 5:06 PM [facility] REPOSITORY HNO ID: [id number] Author: Zoila (Rn) JEFF Cullen Service: Nursing Author Type: Registered Nurse Type: Nursing Progress Note Filed: 11/29/2017 5:12 PM Note Text: Nursing Progress Note Patient Name: Paloma Cannon Patient Location: [place] [address]/H080- Daily Note: Pt AANDOx3. VSS. Pt c/o Left sided pain, treated per sep. At times, pt would ask for pain meds. When RN went back into room, pt would be sleeping/snoring. Tolerating regular diet well. Skin care protocol in place. Fall/safety precautions in place. Sputum culture sent. This note was completed by: Zoila Cullen RN Observed: 11/29/2017 Status: F Source: [place] RESPIRATORY CULT/STAIN 3:09 PM [facility] REPOSITORY Sp. Request/Comment: - Specimen received in sterile container. Smear Result - Many Gram positive cocci in clusters --> ABNORMAL ALERT Rare --> ABNORMAL ALERT Gram positive diphtheroid-like bacilli --> ABNORMAL ALERT Rare Polymorphonuclear leukocytes Culture Result - Many Staphylococcus aureus --> ABNORMAL ALERT Rare --> ABNORMAL ALERT Stenotrophomonas maltophilia --> ABNORMAL ALERT Insignificant colony count. No further workup. --> ABNORMAL ALERT ORGANISM: Staphylococcus aureus METHOD: Minimum inhibitory concentration(Vitek) Antibiotic Interp RADHA Status Erythromycin SUSCEPTIBLE <=0.25 F Clindamycin SUSCEPTIBLE 0.25 F Tetracycline SUSCEPTIBLE <=1 F Vancomycin SUSCEPTIBLE <=0.5 F Oxacillin SUSCEPTIBLE <=0.25 F Oxacillin susceptible staphylococci are susceptible to other penicillinase stable penicillins, beta lactam/beta lactamase inhibitor combinations, anti staphyloccal cephems, and carbapenems. Trimeth sulfameth SUSCEPTIBLE <=10 F Gentamicin SUSCEPTIBLE <=0.5 F Rifampin SUSCEPTIBLE <=0.5 F Rifampin should not be used alone for antimicrobial therapy. Doxycycline SUSCEPTIBLE <=0.5 F Performed By: #### RCULST #### [facility] [address] [place], [place] [address] NUTRITION Observed: 11/29/2017 Status: COMPLETED Source: [place] 2:45 PM [facility] REPOSITORY HNO ID: [id number] Author: Anahi (Diet-T) Sergei Service: Nutrition Therapy Author Type: Surveyor Helper Type: Nutrition Filed: 11/29/2017 2:46 PM Note Text: NUTRITION THERAPY FOLLOW-UP NOTE SERVICE DATE: 11/29/2017 SERVICE TIME: 215 Anthropometrics: Height: 160 cm (5' 3) Current Weight: Weight: 103.5 kg (228 lb 2.8 oz) Body mass index is 40.42 kg/m?. Loss of lean body mass/visual muscle wasting: no Admitting Diagnosis: Retroperitoneal bleed [R58] Present Diet Order: Regular Is the patient having any pain that is interfering with oral/enteral intake? No Allergies: ALLERGIES Allergen Reactions - Rhubarb Rash, Hives - Chlorhexidine Rash Patient has sensitivity to CHG gel impregnated dressing. Patient can tolerate a sorbaview dressing AND a CHG biopatch. - Heparin Other: See Comments Per patient history of HIT - was on angiomax however then took l fondaparinux for bridging to coumadin. - Iv Contrast [Iodine] Other: See Comments shuts kidneys down per patient - Rituximab Other: See Comments Elevated cardiac enzymes Reason for Visit: Nutrition screen: LOS > 6 days Nutrient intake assessment: Current intake of meals: 75 - 100% Patient concerns/Issues: The patient states she is eating well. She would like 1 voucher tomorrow for lunch. Her family is coming. The patient denied any other issues or concerns at this time. Will continue to monitor. Nursing Admission Assessment Malnutrition Score Tool: 1 Plan of Care: Recommendation No problems noted at this time. Will screen again within 7 days Discharge Plan: Regular MNT Billing Type: Routine Care/15 min 1 unit SIGNATURE: MELVINA Ellison PATIENT NAME: Paloma Cannon DATE: November 29, 2017 TIME: 2:45 PM PAGER: [phone] CONSULT PROG Observed: 11/29/2017 Status: COMPLETED Source: [place] 2:41 PM [facility] REPOSITORY HNO ID: [id number] Author: Paulette Daniels) Davonte Service: Vascular Medicine Author Type: Nurse Practitioner Type: Consult Progress Note Filed: 11/29/2017 2:45 PM Note Text: VASCMED CONSULT PROGRESS NOTE Subjective Follow Up Regarding: APS, remote hx of HIT INTERVAL HPI and PERTINENT ROS: INR 2.2 S: Sitting up in bed, l denies hemoptysis, epistaxis, hematuria, hematochezia, or melena team increasing her diuretics, one pinpoint area on her upper thigh that is weeping, distal extremities working well w/wraps Current Facility-Administered Medications: senna 17.2 mg tab(s) (SENOKOT) 17.2 mg ORAL/FEEDING TUBE BID torsemide 20 mg tab(s) (DEMADEX) 20 mg ORAL 2 times per day oxyCODONE IR 5 mg tab(s) (ROXICODONE) 5 mg ORAL/FEEDING TUBE q 3 H PRN warfarin 7.5 mg tab(s) (COUMADIN) 7.5 mg ORAL ONCE - WARFARIN sodium citrate 4% 3-6 mL catheter lock 3-6 mL INTRALUMINAL APHERESIS PRN lidocaine 5 % 1 Patch (LIDODERM) 1 Patch TRANSDERMAL DAILY And lidocaine patch - REMOVE OTHER AT BEDTIME And lidocaine - VERIFY PATCH OTHER q 8 H warfarin order for discharge OTHER PRN hyoscyamine sublingual 0.25 mg tab(s) (LEVSIN SL) 0.25 mg SUBLINGUAL TID PRN entvwhejtnYADSZ-gwjrdz-kwhzeyfoj 10 mL oral liquid (BMX 1:1:1) 10 mL ORAL q 2 H PRN bivalirudin 250 mg in D5W 250 mL (ANGIOMAX) 0.1 mg/kg/hr INTRAVENOUS CONTINUOUS gabapentin 400 mg cap(s) (NEURONTIN) 400 mg ORAL TID cyclobenzaprine 10 mg tab(s) (FLEXERIL) 10 mg ORAL AT BEDTIME cyclobenzaprine 10 mg tab(s) (FLEXERIL) 10 mg ORAL BID PRN NIFEdipine ER 60 mg tab(S) (PROCARDIA XL) 60 mg ORAL BID predniSONE 40 mg tab(s) (DELTASONE) 40 mg ORAL/FEEDING TUBE DAILY acetaminophen 1,000 mg tab(s) (TYLENOL) 1,000 mg ORAL TID 0.9% NaCl 10 mL 10 mL INTRAVENOUS q 12 H 0.9% NaCl 20 mL 20 mL INTRAVENOUS PRN albuterol 2.5 mg /3 mL (0.083 %) 2.5 mg (PROVENTIL) 2.5 mg INHALATION q 4 WEEKS And pentamidine 300 mg nebulizer solution (NEBUPENT) 300 mg INHALATION q 4 WEEKS carvedilol 25 mg tab(s) (COREG) 25 mg ORAL/FEEDING TUBE BID w MEALS lidocaine 5 % 1 Patch (LIDODERM) 1 Patch TRANSDERMAL DAILY And lidocaine patch - REMOVE OTHER AT BEDTIME And lidocaine - VERIFY PATCH OTHER q 8 H polyethylene glycol 3350 17 g packet (MIRALAX, GLYCOLAX) 17 g ORAL/FEEDING TUBE DAILY docusate sodium 100 mg cap(s) (COLACE) 100 mg ORAL BID pantoprazole DR 40 mg tab(s) (PROTONIX) 40 mg ORAL DAILY (6 AM) ondansetron 8 mg tab(s) (ZOFRAN) 8 mg ORAL q 8 H PRN diphenhydrAMINE 50 mg (BENADRYL) 50 mg ORAL/FEEDING TUBE q 6 H PRN hydrocortisone sodium succinate (PF) 100 mg injection (Solu- CORTEF) 100 mg INTRAVENOUS q 4 H PRN diphenhydrAMINE 50 mg injection (BENADRYL) 50 mg INTRAVENOUS q 4 H PRN prochlorperazine 5 mg injection (COMPAZINE) 5 mg INTRAVENOUS q 6 H PRN dextrose 50% in water 25-50 mL syringe 12.5-25 g INTRAVENOUS PRN dextrose 40 % 15 g 15 g ORAL PRN glucagon 1 mg injection (GLUCAGEN) 1 mg SUBCUTANEOUS PRN Objective PHYSICAL EXAM: BP 134/82 Pulse 95 Temp 36.7 ?C (98 ?F) (Oral) Resp 20 Ht 160 cm (5' 3) Wt 103.5 kg (228 lb 2.8 oz) SpO2 92% BMI 40.42 kg/m? General: alert and oriented x3 Cardiac: RRR Respiratory: clear B/L Abdominal/GI: soft, non-tender Extremity: wraps on, distal legs w/trace edema, thighs w/+2-3, Skin: warm, dry Pulse/vascular exam: B/L + 2 rad/pt DATA: Diagnostic tests reviewed for today's visit: Most recent labs and imaging results. 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 ??Other pertinent past medical history include HF and CKD. ?Her warfarin is followed by given her APS. ?Dr. Andujar manages her APS/plasmapheresis. Pt w/prolonged admission after RP bleed over 1 month ago. Now rebridging bival to warfarin. INR 2.2, first therapeutic. Plan discussed w/Dr. Rodriguez: titrate bivalirudin for goal aptt 46-65 check aptt 2hrs after any gtt adjustment and q2 hrs until therapeutic x2, then daily. warfarin 7.5 mg tonight tomorrow if INR remains >2, dc bival, recheck INR 2 hrs later to ensure INR remains>2 follows warfarin outpatient SIGNATURE: Paulette Naranjo APRN.DIRECTOR OF HOTEL PATIENT NAME: Paloma Cannon DATE: November 29, 2017 TIME: 11 am PAGER/CONTACT #: [phone] . CASE MANAGEM Observed: 11/29/2017 Status: COMPLETED Source: [place] 1:38 PM [facility] RE[facility]IT[facility] HNO ID: [id number] Author: Cherrie Loaiza (Asst) Service: Care Management Author Type: Resource Center Satellite Tv Technician Installer Type: Care Mgt Progress Note Filed: 11/29/2017 1:39 PM Note Text: CARE MANAGEMENT PROGRESS NOTE SERVICE DATE: 11/29/2017 SERVICE TIME: 1:02 LOS: 35 days IM letter given to patient on 11/29/17. SIGNATURE: Asst Xiomara PATIENT NAME: Paloma Cannon DATE: November 29, 2017 TIME: 1:38 PM PAGER/CONTACT #: [phone] ALLIED HEALTH Observed: 11/29/2017 Status: COMPLETED Source: [place] 12:57 PM [facility] REPOSITORY HNO ID: [id number] Author: Negrito Kelley (Therapist) Miranda Service: Art Therapy Author Type: Therapist Type: Allied Health Filed: 11/29/2017 1:01 PM Note Text: ART THERAPY NOTE SERVICE DATE: 11/29/2017 SERVICE TIME: 11:00 Referred By: PT Reason for Referral: anxiety COMMENTS: Pt unavailable upon attempt as another provider was bedside. Did not disturb. SIGNATURE: Negrito Jean, ATR-BC, PC PATIENT NAME: Paloma Cannon DATE: November 29, 2017 TIME: 12:57 PM PAGER/CONTACT #: [phone] THERAPY NT Observed: 11/29/2017 Status: COMPLETED Source: [place] 12:32 PM [facility] REPOSITORY HNO ID: [id number] Author: Tamiko (Pt) Adelaida Service: Physical Therapy Author Type: Physical Therapist Type: Therapy (PT/OT/Speech/Resp) Filed: 11/29/2017 12:37 PM Note Text: Physical Therapy Wound/Lymph Treatment SERVICE DATE: 11/29/2017 SERVICE TIME: 1100 to 1125 ROOM: [place] [address] Recommended Discharge Disposition Comments: will require further assessment Anticipated Discharge Needs: Undetermined PT Recommendations to Nursing: With assist of 1 person;Transfer to/from chair;OOB for Meals 6 Clicks Score: 14 Skin Condition: BLE lymphedema Frequency of Dressing Change:Daily?- compression wraps to be worn during the day hours ?Physical Therapy to Perform Dressing Change: 4x/week to be coordinated with nursing ?Nursing to Perform Dressing Change:1x/day Monday and Monday Dressing/Treatment Type: See Clinical Documentation report for specific dressing information. ASSESSMENT : Patient tolerated compression yesterday for six hours. Patient still offering complaints of right hip drainage and concern for advancing compression to the include the thigh until the drainage decreases. Will still work with patient toward this option. Pt is physically unable to perform compression wrapping therefore will need to perform training with a family member. ?Plan to continue with current POC at this time. Patient Disposition at Start of Session: Supine in Bed Patient Disposition at End of Session: Supine in Bed;Bed Alarm;Call Wagoner in Reach Tolerated Full Session Fatigue;Pain Physical Therapy Problem List: Cognitive Deficit;Education Deficit;Decreased Activity Tolerance;Decreased Strength;Functional Mobility Impairment Patient /Caregiver Goals: Unique to general PT Goals for Plan of Care: 1. ?Decongestion of BLE?with girth measurements decreased by 2-4?cm per segment to increase level of independence with functional mobility and ADL's, decrease pain, decrease recurrence of infection, improved range of motion and allow appropriate fit in compressive garment. ?? 2. ??Pt and/or caregiver will demonstrate compliance in knowledge of lymphedema precautions including meticulous skin and nail care to reduce risk of infection and further exacerbation. 3. ??Pt and/or caregiver will demonstrate the correct method of Lymphatic Bandaging/compression technique and independent understanding of the principles and theory of compression 4. ??Pt and/or caregiver will be independent in their exercise program to enchance Lymphatic flow and decongestion of the affected body parts 5. Patient/ Caregiver will be able to demonstrate competence with offloading recommendations and pressure relieving strategies 6. Patient/ Caregiver will be able to state the signs and symptoms of infection Progress Toward Goals: Progressing as expected Due To: medical status Rehab Potential: Fair PLAN: Treatment Frequency (times per week): 4 Current admission Treatment Interventions: Education;Self Care / Home Management;Joint Mobility;Strengthening;Functional Mobility Training;Balance Training;Edema Management;Pain Management Plan of Care developed with: Patient TREATMENT INTERVENTIONS: Interventions Provided: Manual Therapy (34794) Manual Therapy (28044) Treatment Minutes: 25 2 units Skilled Intervention: Manual skills to improve joint mobility, range of motion, and decrease pain. Educated patient on the following aspect of Complete Decongestive Therapy (CDT): 1.??Compressive Therapy: Discussed rationale for compression garment and bandaging Instructed in proper technique for compression wrapping Skilled interventions: - Increase lymaphtic fluid dynamics - Increase skin extensibility - Utilized anatomy knowledge of the therapist, and assessment of patient's response to intervention. ? Manual Compression performed: 1. ?Skin inspected and?cleansed thoroughly 2. ?Applied lotion?to BLE? 3. ?Applied 1 surgigrip?+ 1 ABD pad at the foot/ ankle + 1?surepress wraps applied at 50% tension?with a 50% overlap (deferred ankle padding today). ? Spoke at length with pt re: when to loosen or remove the bandages (i.e.: in the event that pain becomes a limiting factor or pt experienced new onset SOB or worsening of respiratory status). Pt verbalized understanding. ? Education: 1. ?Discussed with patient and nursing the risks and benefits of compression therapy and how compression is indicated in this case. 2. ?Reviewed?proper technique for compression wrapping.? 3. Issued new supplies including surgigrip, tape, and cut surepress bandages to correct size (issued new bandages as well) Discussed care of supplies Total Timed Code Treatment Minutes: 25 Total Treatment Time (minutes): 25 SUBJECTIVE: Current Hospital Course: Chart reviewed and no significant medical updates relevant to therapy were noted Patient Report: I did not sleep at all last night 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 Entry To Home: No Stairs Number Of Stairs To Bed/Bath: 0 Tub/Shower Type: walk in shower Equipment Owned: Commode-Raised;Grab Bars-Shower;Grab Bars-Toilet;Shower Chair;Home Oxygen Prior Functional Level: Required Assistance Assistance Required With: Cleaning;Laundry;Meals;Shopping;Transportation Prior Wound Care: Other: See Comment (unable to don compression stockings (I)) OBJECTIVE: ? Location Date: 11/27/17 Date: 11/28/17 Right Left Right Left Metatarsal Heads 23.25cm 23.75cm 24.25cm 22.5cm Ankle ([place]) 24.25cm 24cm 24.5cm 25.5cm 10cm above malleoli 29.5cm 27.75cm 26.5cm 26cm 20cm above malleoli 44cm 41.5cm 40cm 38.5cm 30cm above malleoli 50.5cm 44.5cm 48.75cm 45cm ? ? Location ?Date: ? 11/17/17 ?Date: ? 11/22/17 Date: 11/23/17 Right Left Right Left Right Left Metatarsal Heads 25.5cm 24cm 24cm 23cm 23.5cm 22cm Ankle ([place]) 24.5cm 24.5cm 21cm 22.25cm 24cm 24cm 10cm above malleoli 28.5cm 28.25cm 24cm 23cm 28cm 27cm 20cm above malleoli 44cm 40.5cm 36.5cm 34.5cm 43.5cm 39.5cm 30cm above malleoli 49cm 44.5cm 47cm 44cm 45cm 45.5cm ? Location Evaluation Date: ? 08/01/17 Date: ? 11/03/17 Date: 11/16/17 Right Left Right Left Right Left Metatarsal Heads 24cm 22.5cm 24cm 24cm 24cm 24.5cm Ankle ([place]) 23.25cm 22.5cm 24cm 25cm 24.5cm 25cm 10cm above malleoli 28.5cm 28cm 30cm 27.5cm 31cm 29.5cm 20cm above malleoli 42cm 43.25cm 42cm 40cm 46cm 42cm 30cm above malleoli 45.5cm 41.5cm 46cm 47cm 46cm 44.5cm ? LLE Circumferential Measurements: Metatarsal Heads;Ankle;10 cm;20 cm;30 cm Left Metatarsal Heads: 22.5cm Left Ankle: 25.5cm Left Lower Extremity 10cm: 26cm Left Lower Extremity 20cm: 38.5cm Left Lower Extremity 30cm: 45cm RLE Circumferential Measurements: Metatarsal Heads;Ankle;10 cm;20 cm;30 cm Right Metatarsal Heads: 24.25cm Right Ankle: 24.5cm Right Lower Extremity 10cm: 26.5cm Right Lower Extremity 20cm: 40cm Right Lower Extremity 30cm: 48.75cm Sensation Sensation: Right Lower Extremity;Left Lower Extremity Right Lower Extremity Sensation: Light Touch RLE Light Touch: Intact Left Lower Extremity Sensation: Light Touch LLE Light Touch: Intact Circulation Pulses: Right Dorsalis Pedis;Left Dorsalis Pedis Right Dorsalis Pedis Pulse: (unable to palpate due to lymphedema; present via doppler) Left Dorsalis Pedis Pulse: (unable to palpate due to lymphedema; present via doppler) Capillary Refill: Right Lower Extremity;Left Lower Extremity Right Lower Extremity Capillary Refill: Intact Left Lower Extremity Capillary Refill: Intact See Clinical Documentation report for Skin Documentation. Current Functional Mobility Assist Level Additional Information Rolling Contact Guard Assistance Supine to Sit Contact Guard Assistance Sit to Supine Moderate Assistance (BLE) Scooting Contact Guard Assistance Sit to Stand Minimal Assistance Stand to Sit Minimal Assistance Bed to Chair Minimal Assistance Toilet/Commode Minimal Assistance Gait Minimal Assistance Gait Device: Wheeled Walker Gait Distance (feet): 4' x 2 General Gait Deviations: Delmy decreased;Step length decreased;Wide base of support Balance: Static Sitting;Dynamic Sitting;Static Standing;Dynamic Standing Static Sitting Balance: Stand By Assistance Dynamic Sitting Balance: Contact Guard Assistance Static Standing Balance: Minimal Assistance Dynamic Standing Balance: Minimal Assistance Please see discipline specific clinical documentation flowsheet for complete details for this therapy evaluation/treatment. SIGNATURE: Tamiko Son PT PATIENT NAME: Paloma Cannon DATE: November 29, 2017 TIME: 12:33 PM PAGER/CONTACT #: [phone] XR CHEST 1V FRONTAL Observed: 11/29/2017 Status: F Source: [facility] 7:55 AM [facility] REPOSITORY * * *Final Report* * * DATE OF EXAM: Nov 29 2017 7:55AM HALINA [id number] - XR CHEST 1V FRONTAL PORT / PROCEDURE REASON: SOB, volume overload, heart failure suspected * * * * Physician Interpretation * * * * EXAMINATION: CHEST RADIOGRAPH (PORTABLE SINGLE VIEW AP) Exam Date/Time: 11/29/2017 7:55 AM Clinical History: SOB, volume overload, heart failure suspected MQ: [id number] Comparison: 1 day prior RESULT: See impression. IMPRESSION: Lines, tubes, and devices: Unchanged Lungs and pleura: Interstitial edema unchanged Cardiomediastinal silhouette: Stable cardiomegaly Other: . Practice Support Specialist: PSCB Transcribe Date/Time: Nov 29 2017 8:43A Dictated by : KOFFI PRAJAPATI MD This examination was interpreted and the report reviewed and electronically signed by: KOFFI PRAJAPATI MD on Nov 29 2017 8:44AM EST [id number] PROGRESS Observed: 11/29/2017 Status: COMPLETED Source: [place] 5:58 AM [facility] REPOSITORY HNO ID: [id number] Author: Olga Reyez Service: General Internal Medicine Author Type: Resident Type: Progress Notes Filed: 11/29/2017 11:08 AM Note Text: Attestation signed by Zhou Lang at 11/29/2017 12:[address] FRED STONE, SR. HOSPITAL STAFF PHYSICIAN NOTE OF PERSONAL INVOLVEMENT IN CARE I have reviewed the progress note obtained and documented by the resident and I personally participated in the fernandes components. Patient seen and discussed with house staff on rounds. The following comments revise or confirm relevant fernandes components of their note. Ms. Cannon was more awake and interactive this morning. We discussed her multiple sedating and high-risk medications, and agreed to: 1. Discontinue the use of parenteral opiates, titrating oral opiates if needed to achieve reasonable pain control, 2. Minimize use of multiple different opiates, and 3. Minimize use of opiates overall. To those ends, we will attempt to simplify her regimen from oral oxycodone plus IV hydromorphone to oral oxycodone alone. I see no indication for parenteral treatment. We also discussed that the expected benefit of opiates is a 30-40% reduction in pain scores. As such, Ms. Cannon understands that opiates offer relief, but not resolution, of her pain. As to her anticoagulation, we will look to our colleagues in Vascular Medicine for guidance on whether her INR is reflective of clotting factor levels, given plasma exchange on 11/27. If so, I would be comfortable stopping bivalrudin in favor of warfarin monotherapy. Detailed plan per house staff note. I remain available for questions/discussion, if helpful. SIGNATURE: Zhou Lang MD PAGER: [phone] DATE of SERVICE: 11/29/2017 TIME of SERVICE: 12:36 PM RAF A PROGRESS NOTE For questions regarding this patient today please page [phone] After 5 pm on weekdays and 3pm on weekends and holidays please page documentation clerk pager [phone] SERVICE DATE: 11/29/2017 SERVICE TIME: 5:58 AM INTERVAL HISTORY: - No acute events overnight - HDS, 97% on 5L NC - passed 1 BM yesterday - c/o of fullness around her abdomen - she did not work with PT or OT yesterday due to somnolence. She was arousable though - INR 2.2 today - platelets improving, Hgb stable - Blood culture from 11/26 07/11 positive for gram positive cocci in pairs and chains, likely contaminant. PLAN FOR TODAY - touch base with VM regarding bivalirudin - torsemide 20 mg BID - discontinue dilaudid, and switch oxycodone from q4h PRN to q3h PRN - sputum culture - c/w coumadin - if still somnolent today, will consider tapering back her pain regimen - monitor for signs of fresh bleeding and new pain (Left RP and abdominal pain) - appreciate VM and heme recs - c/w torsemide 20 mg qday; strict I/O - desaturation study required prior to discharge next apheresis scheduled for -. May affect coumadin levels. - will hold off on imaging studies to assess for PE given that it will not change managements at this time (already on AC) and given recent history of CPARICE. MEDICATIONS: Current hospital medications: sodium citrate 4% 3-6 mL catheter lock 3-6 mL INTRALUMINAL APHERESIS PRN lidocaine 5 % 1 Patch (LIDODERM) 1 Patch TRANSDERMAL DAILY lidocaine patch - REMOVE OTHER AT BEDTIME lidocaine - VERIFY PATCH OTHER q 8 H warfarin order for discharge OTHER PRN hyoscyamine sublingual 0.25 mg tab(s) (LEVSIN SL) 0.25 mg SUBLINGUAL TID PRN oxyCODONE IR 5 mg tab(s) (ROXICODONE) 5 mg ORAL/FEEDING TUBE q 4 H PRN [id number] 10 mL oral liquid (BMX 1:1:1) 10 mL ORAL q 2 H PRN bivalirudin 250 mg in D5W 250 mL (ANGIOMAX) 0.1 mg/kg/hr INTRAVENOUS CONTINUOUS gabapentin 400 mg cap(s) (NEURONTIN) 400 mg ORAL TID cyclobenzaprine 10 mg tab(s) (FLEXERIL) 10 mg ORAL AT BEDTIME cyclobenzaprine 10 mg tab(s) (FLEXERIL) 10 mg ORAL BID PRN NIFEdipine ER 60 mg tab(S) (PROCARDIA XL) 60 mg ORAL BID predniSONE 40 mg tab(s) (DELTASONE) 40 mg ORAL/FEEDING TUBE DAILY HYDROmorphone 0.3 mg in NaCl 0.9% (DILAUDID) 0.3 mg INTRAVENOUS q 6 H PRN acetaminophen 1,000 mg tab(s) (TYLENOL) 1,000 mg ORAL TID torsemide 20 mg tab(s) (DEMADEX) 20 mg ORAL DAILY 0.9% NaCl 10 mL 10 mL INTRAVENOUS q 12 H 0.9% NaCl 20 mL 20 mL INTRAVENOUS PRN albuterol 2.5 mg /3 mL (0.083 %) 2.5 mg (PROVENTIL) 2.5 mg INHALATION q 4 WEEKS pentamidine 300 mg nebulizer solution (NEBUPENT) 300 mg INHALATION q 4 WEEKS carvedilol 25 mg tab(s) (COREG) 25 mg ORAL/FEEDING TUBE BID w MEALS lidocaine 5 % 1 Patch (LIDODERM) 1 Patch TRANSDERMAL DAILY lidocaine patch - REMOVE OTHER AT BEDTIME lidocaine - VERIFY PATCH OTHER q 8 H polyethylene glycol 3350 17 g packet (MIRALAX, GLYCOLAX) 17 g ORAL/FEEDING TUBE DAILY docusate sodium 100 mg cap(s) (COLACE) 100 mg ORAL BID senna 8.6 mg tab(s) (SENOKOT) 8.6 mg ORAL/FEEDING TUBE BID pantoprazole DR 40 mg tab(s) (PROTONIX) 40 mg ORAL DAILY (6 AM) ondansetron 8 mg tab(s) (ZOFRAN) 8 mg ORAL q 8 H PRN diphenhydrAMINE 50 mg (BENADRYL) 50 mg ORAL/FEEDING TUBE q 6 H PRN hydrocortisone sodium succinate (PF) 100 mg injection (Solu- CORTEF) 100 mg INTRAVENOUS q 4 H PRN diphenhydrAMINE 50 mg injection (BENADRYL) 50 mg INTRAVENOUS q 4 H PRN prochlorperazine 5 mg injection (COMPAZINE) 5 mg INTRAVENOUS q 6 H PRN dextrose 50% in water 25-50 mL syringe 12.5-25 g INTRAVENOUS PRN dextrose 40 % 15 g 15 g ORAL PRN glucagon 1 mg injection (GLUCAGEN) 1 mg SUBCUTANEOUS PRN HOME MEDICATIONS: cyclophosphamide (CYTOXAN) 50 mg capsule Take 150 mg by mouth once daily. diphenhydrAMINE (BENADRYL) 50 mg capsule Take 1 capsule by mouth every 6 hours as needed for Itching/Rash. gabapentin (NEURONTIN) 100 mg capsule Take 1 capsule by mouth three times daily for 7 days. ondansetron (ZOFRAN, HYDROCHLORIDE,) 8 mg tablet Take 8 mg by mouth every 8 hours as needed for Nausea/Vomiting. pantoprazole DR (PROTONIX) 40 mg tablet Take 40 mg by mouth daily at bedtime. sulfamethoxazole-trimethoprim (BACTRIM DS) 800-160 mg per tablet Take 1 tablet by mouth every Monday,Monday,Monday. fluticasone (FLONASE) 50 mcg/actuation nasal spray Use 1-2 Sprays in each nostril once daily as needed for Cold/Allergy Symptoms (starting in allergy season). senna 8.6 mg tab Take 1 tablet by mouth twice daily as needed. PHYSICAL EXAM: VITAL SIGNS Patient Vitals for the past 24 hrs: BP Temp Temp src Pulse Resp SpO2 Weight 11/29/17 0553 152/90 36.8 ?C (98.3 ?F) Oral 100 20 97 % 103.5 kg (228 lb 2.8 oz) 11/29/17 0408 153/83 - - 95 20 - - 11/29/17 0200 151/90 36.5 ?C (97.7 ?F) Oral 91 19 94 % - 11/28/17 2107 141/87 36.4 ?C (97.6 ?F) Oral 87 18 - - 11/28/17 1829 134/85 36.6 ?C (97.8 ?F) Oral 99 20 96 % - 11/28/17 1422 133/84 36.8 ?C (98.3 ?F) Oral 99 18 94 % - 11/28/17 1021 129/77 36.8 ?C (98.2 ?F) Oral 85 20 94 % - 11/28/17 0808 156/97 - - 104 - - - BP 152/90 Pulse 100 Temp 36.8 ?C (98.3 ?F) (Oral) Resp 20 Ht 160 cm (5' 3) Wt 103.5 kg (228 lb 2.8 oz) SpO2 97% BMI 40.42 kg/m? Temp (24hrs), Av.7 ?C (98 ?F), Min:36.4 ?C (97.6 ?F), Max:36.8 ?C (98.3 ?F) INTAKE/OUTPUT Intake/Output Summary (Last 24 hours) at 11/29/17 0558 Last data filed at 11/29/17 0000 Gross per 24 hour Intake 570 ml Output 502 ml Net 68 ml General: Alert, oriented, cooperative.?In no acute distress. 5L NC Skin:?Chronic skin changes on bilateral LE below the knee?due to lymphedema HEENT: EOM. Pupils equal, round and reactive Cardiovascular: RRR. No murmur Chest: TTP over lower left chest Lungs: Crepitations at the bases than prior Abdomen: Soft, TTP in LUQ, no masses or organomegaly. Varicose veins bilaterally. Extremities: 2+ peripheral edema but improving,?+2 DP pulses bilaterally Neurological: Moving all extremities freely? ? LAB DATA: Component Latest Ref Rng AND Units 11/28/2017 11/29/2017 Albumin 3.9 - 4.9 g/dL 3.4 (L) Calcium 8.5 - 10.2 mg/dL 8.7 Phosphorus 2.7 - 4.8 mg/dL 3.9 Glucose 74 - 99 mg/dL 108 (H) BUN 7 - 21 mg/dL 40 (H) Creatinine 0.58 - 0.96 mg/dL 1.37 (H) Sodium 136 - 144 mmol/L 138 Potassium 3.7 - 5.1 mmol/L 3.8 Chloride 97 - 105 mmol/L 98 CO2 22 - 30 mmol/L 29 Anion Gap 9 - 18 mmol/L 11 eGFR- 56 eGFR-All Other Races . 46 WBC 3.70 - 11.00 k/uL 6.74 6.26 RBC 3.90 - 5.20 m/uL 3.36 (L) 3.32 (L) Hemoglobin 11.5 - 15.5 g/dL 10.9 (L) 10.7 (L) Hematocrit 36.0 - 46.0 % 33.9 (L) 33.9 (L) MCV 80.0 - 100.0 fL 100.9 (H) 102.1 (H) MCH 26.0 - 34.0 pG 32.4 32.2 MCHC 30.5 - 36.0 g/dL 32.2 31.6 RDW-CV 11.5 - 15.0 % 20.3 (H) 20.5 (H) Platelet Count 150 - 400 k/uL 160 170 MPV 9.0 - 12.7 fL 10.6 10.9 Absolute nRBC <0.01 k/uL <0.01 0.02 (H) PT Sec 9.7 - 13.0 sec 19.1 (H) 21.5 (H) PT INR 0.9 - 1.3 1.9 (H) 2.2 (H) APTT 23.0 - 32.4 sec 57.7 (H) 58.8 (H) ASSESSMENT AND PLAN: Active Hospital Problems Diagnosis - Retroperitoneal hematoma Retroperitoneal bleed: s/p 7 units PRBCs s/p IR emobolization of left L3 artery at [facility] on 10/23 IR embolization of left L2 and L3 arteries on 10/26 CT abd/pel 10/31: RP bleed stable when compared to previous imaging from 10/27 LDH 1730, haptoglobin <10, Tbili 1.3- concern for hemolysis as well. 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 Has received stenting of IVC and iliacs along with endograft of IVC. 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 C/B extensive RP bleed s/p L2, L3 embolization. N-plate 11/09, 11/13 Received Apheresis on 11/03, 11/13 (heme following); patient is on [id number] (Mondays), next scheduled for 11/27 11/22: started bivalirudin for bridge to coumadin (on 2.5 alternating w 5 mg coumadin) Plan: Holding Cytoxan 75 mg in setting of worsening thrombocytopenia Continue prednisone 40 mg withpentamidine ppx Appreciate hematology and VM recs c/w with bivalirudin and start coumadin bridge. Bivalirudin and coumadin should overlap for a minimum of 5 days until INR is therapeutic before Bivalirudin can be discontinued - CAPRICE (acute kidney injury) (HCC) CAPRICE on CKD III, 2/2 contrast, improved to S.Cr-1.3 Received IHD during this admission but renal recover and IHD was held Plan: Nephrology following- appreciate recommendations Daily BMPs to watch K, Na and phosphorus levels Renal dosing of medication Avoid excess fluids and nephrotoxic drugs - HTN (hypertension) Mildly decreased systolic function, diastolic function indeterminate on 10/13/17 ECHO. 10/28: Run of SBP in 200s overnight (likely d/t pain), given hydralazine however still consistently in 170s-180s 10/29: Still hypertensive, required 4 doses of hydralazine overnight Switched Amlodipine 10 mg to nifedipine 30mg on 11/10, and increased Coreg from 6.25 to 25 mg BID Plan: Nifedipine 60 mg BID and keeping Coreg 25 mg at current dosing Can consider adding PRN hydralazine for SBP>180 mm Hg, Also on torsemide for volume - Diffuse pulmonary alveolar hemorrhage Currently stable, no new episodes Has had 6 admissions recently for acute respiratory failure requiring mechanical ventilation Cytoxan was reduced from 150 to 75 mg due to concern for BM toxicity; renally dosed Decreased prednisone from 60 to 40 mg Plan: Continue to monitor respiratory status Continue oxygen therapy at 2L NC Holding Cytoxan in setting of worsening thrombocytopenia Continue Prednisone 40 mg daily Switched bactrim to pentamidine for ppx on 11/12 Will reach out to outpatient provider regarding switch to pentamidine from bactrim, per heme recs - Moraxella catarrhalis pneumonia (HCC) Had respiratory cultures growing Moraxella catarrhalis Received ceftriaxone 10/27-11/03- 7 days therapy WBC trended down from 21 K to 12K. Currently at baseline O2 requirement but still slightly tachypneic Completed course of ceftriaxone. Plan: Continue to monitor respiratory status closely BPH per RT Incentive spirometry - Peripheral neuropathy - History of heparin-induced thrombocytopenia Avoid all heparin products. 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 - Left groin pain 10/27: C/o acute painin morning, access site for embolization at [facility], no erythema or induration appreciated on exam, exquisitely TTP Groin study showed no signs of PSA, known AV fistula visualized with retrograde flow, vascular med aware- no further recs 10/28: pain less severe, no physical exam findings Repeat Leg DVT shows no pseudoaneurysm Likely due to nerve compression/RP hematoma causing compressive symtpoms S/p R groin drain placed at [facility] on 10/24 s/p L groin drain placed at [facility] during embolization on 10/26 Plan: - repeat image showed decreased size - will continue to monitor symptoms and HANDH w low threshold for imaging MAINTENANCE: VTE PROPHYLAXIS:?bivalirudin + coumadin (day 6) NEED FOR ZUNIGA- Removed 11/14/17 LINES: Double lumen dialysis catheter 10/25/17 Dispo-?Acute rehabilitation center This note is not final until staffed by the attending physician and authenticated by responsible provider. SIGNATURE: Olga Reyez MD PATIENT NAME: Paloma Cannon DATE: November 29, 2017 TIME: 5:58 AM PAGER: [phone] CBC Collected: 11/29/2017 Status: F Source: [place] 4:05 AM [facility] REPOSITORY TYPE CODE TESTS RESULT OUT OF REFERENCE UNITS RANGE LAB WBC 3.70-11.00 k/uL WBC 6.26 LAB RBC 3.90-5.20 m/uL Low RBC 3.32 LAB HGB 11.5-15.5 g/dL Low Hemoglobin 10.7 LAB HCT 36.0-46.0 % Low Hematocrit 33.9 LAB MCV 80.0-100.0 fL MCV High 102.1 LAB MCH 26.0-34.0 pG MCH 32.2 LAB MCHC 30.5-36.0 g/dL MCHC 31.6 LAB RDWCV 11.5-15.0 % RDW-CV High 20.5 LAB PLTCT 150-400 k/uL Platelet Count 170 LAB MPV 9.0-12.7 fL MPV 10.9 LAB ABSNUC <0.01 k/uL Absolute High nRBC 0.02 Performed By: #### CBC, PT, PTT #### [facility] [address], [place] [address] PROTIME Collected: 11/29/2017 Status: F Source: [place] 4:05 AM [facility] REPOSITORY TYPE CODE TESTS RESULT OUT OF RANGE REFERENCE UNITS LAB PSEC 9.7-13.0 sec High PT Sec 21.5 LAB INR 0.9-1.3 High PT INR 2.2 Result Comment: Vitamin K Antagonist (VKA) Therapeutic Range: INR 2 to 3 (Target INR of 2.5) Note: For patients treated with VKA drugs, such as warfarin, the [employer] 2012 Guideline recommends a therapeutic INR range of 2 to 3 (target INR of 2.5). This recommendation includes high-risk patients with antiphospholipid syndrome with previous arterial or venous thromboembolism, current-generation mechanical or bioprosthetic aortic heart valve replacement. Note: Patients with mechanical aortic valve replacement and additional risk factors for thromboembolic events (atrial fibrillation, previous thromboembolism, LV dysfunction, hypercoagulable conditions) or an older generation mechanical AVR (i.e., ball in-Cage) or any mechanical MVR should have a INR therapeutic range of 2.5 to 3.5 (target INR of 3). Michael GH, et al. Chest 2012, 141:7S-47S Diogenes RA, et al. [facility] 2017, 70: 252-289 Performed By: #### CBC, PT, PTT #### [facility] [address] [place], [place] [address] APTT Collected: 11/29/2017 Status: F Source: [place] 4:05 AM [facility] REPOSITORY TYPE CODE TESTS RESULT OUT OF RANGE REFERENCE UNITS LAB APTT 23.0-32.4 sec High APTT 58.8 Result Comment: Unfractionated Heparin Therapeutic Ranges: Standard Heparin Nomogram: 53 to 78 seconds (anti-Xa level of 0.3 to 0.7 U/ml) Low Dose/ACS Nomogram: 49 to 67 seconds (anti-Xa level of 0.2 to 0.5 U/ml) Stroke Treatment Nomogram: 49 to 67 seconds (anti-Xa level of 0.2 to 0.5 U/ml) Note: The APTT therapeutic range has been determined for the current lot of laboratory APTT reagent in use throughout the [facility]. Performed By: #### CBC, PT, PTT #### [facility] [address], [place] [address] CONSULT PROG Observed: 11/28/2017 Status: COMPLETED Source: [place] 7:16 PM [facility] REPOSITORY HNO ID: [id number] Author: Jefferson Willett (Fel) Service: Hematology/Oncology Author Type: Fellow Type: Consult Progress Note Filed: 11/28/2017 7:30 PM Note Text: CONSULT PROGRESS NOTE SERVICE DATE: 11/28/2017 CONSULTING SERVICE: Hematology Subjective INTERVAL HPI: Doing well Underwent scheduled PLEX yesterday Platelet count has normalized Bridging with bivalirudin to Coumadin Current hospital medications: sodium citrate 4% 3-6 mL catheter lock 3-6 mL INTRALUMINAL APHERESIS PRN lidocaine 5 % 1 Patch (LIDODERM) 1 Patch TRANSDERMAL DAILY lidocaine patch - REMOVE OTHER AT BEDTIME lidocaine - VERIFY PATCH OTHER q 8 H warfarin order for discharge OTHER PRN hyoscyamine sublingual 0.25 mg tab(s) (LEVSIN SL) 0.25 mg SUBLINGUAL TID PRN oxyCODONE IR 5 mg tab(s) (ROXICODONE) 5 mg ORAL/FEEDING TUBE q 4 H PRN [id number]-vrcbhubtq 10 mL oral liquid (BMX 1:1:1) 10 mL ORAL q 2 H PRN bivalirudin 250 mg in D5W 250 mL (ANGIOMAX) 0.1 mg/kg/hr INTRAVENOUS CONTINUOUS gabapentin 400 mg cap(s) (NEURONTIN) 400 mg ORAL TID cyclobenzaprine 10 mg tab(s) (FLEXERIL) 10 mg ORAL AT BEDTIME cyclobenzaprine 10 mg tab(s) (FLEXERIL) 10 mg ORAL BID PRN NIFEdipine ER 60 mg tab(S) (PROCARDIA XL) 60 mg ORAL BID predniSONE 40 mg tab(s) (DELTASONE) 40 mg ORAL/FEEDING TUBE DAILY HYDROmorphone 0.3 mg in NaCl 0.9% (DILAUDID) 0.3 mg INTRAVENOUS q 6 H PRN acetaminophen 1,000 mg tab(s) (TYLENOL) 1,000 mg ORAL TID torsemide 20 mg tab(s) (DEMADEX) 20 mg ORAL DAILY 0.9% NaCl 10 mL 10 mL INTRAVENOUS q 12 H 0.9% NaCl 20 mL 20 mL INTRAVENOUS PRN albuterol 2.5 mg /3 mL (0.083 %) 2.5 mg (PROVENTIL) 2.5 mg INHALATION q 4 WEEKS pentamidine 300 mg nebulizer solution (NEBUPENT) 300 mg INHALATION q 4 WEEKS carvedilol 25 mg tab(s) (COREG) 25 mg ORAL/FEEDING TUBE BID w MEALS lidocaine 5 % 1 Patch (LIDODERM) 1 Patch TRANSDERMAL DAILY lidocaine patch - REMOVE OTHER AT BEDTIME lidocaine - VERIFY PATCH OTHER q 8 H polyethylene glycol 3350 17 g packet (MIRALAX, GLYCOLAX) 17 g ORAL/FEEDING TUBE DAILY docusate sodium 100 mg cap(s) (COLACE) 100 mg ORAL BID senna 8.6 mg tab(s) (SENOKOT) 8.6 mg ORAL/FEEDING TUBE BID pantoprazole DR 40 mg tab(s) (PROTONIX) 40 mg ORAL DAILY (6 AM) ondansetron 8 mg tab(s) (ZOFRAN) 8 mg ORAL q 8 H PRN diphenhydrAMINE 50 mg (BENADRYL) 50 mg ORAL/FEEDING TUBE q 6 H PRN hydrocortisone sodium succinate (PF) 100 mg injection (Solu- CORTEF) 100 mg INTRAVENOUS q 4 H PRN diphenhydrAMINE 50 mg injection (BENADRYL) 50 mg INTRAVENOUS q 4 H PRN prochlorperazine 5 mg injection (COMPAZINE) 5 mg INTRAVENOUS q 6 H PRN dextrose 50% in water 25-50 mL syringe 12.5-25 g INTRAVENOUS PRN dextrose 40 % 15 g 15 g ORAL PRN glucagon 1 mg injection (GLUCAGEN) 1 mg SUBCUTANEOUS PRN Objective PHYSICAL EXAM: BP 134/85 Pulse 99 Temp (Src) 97.8 (Oral) Resp 20 Ht 5' 3 (1.60m) Wt 225 lb 8.5 oz (102.3kg) SpO2 96% BMI 39.96 kg/(m2). General: Alert, NAD. Heart/CV: ?Grossly RRR Lungs: CTA Abd: ?Soft, NT,ND Extremities/Skin: No rashes appreciated DATA: CBC, Coags, BMP, Mg, Phos Recent Labs 11/28/17 0530 11/27/17 0516 11/26/17 1604 11/26/17 0514 WBC 6.74 6.06 -- -- 6.70 HB 10.9* 11.2* 11.1* < > 11.3* HCT 33.9* 35.3* -- -- 34.9* PLT 160 165 -- -- 130* INR 1.9* 1.5* -- -- 1.4* APTT 57.7* 57.2* -- -- 54.7* NA 138 -- -- -- 140 K 3.8 -- -- -- 3.9 CHLOR 98 -- -- -- 100 CO2 29 -- -- -- 26 BUN 40* -- -- -- 38* CREAT 1.37* -- -- -- 1.34* GLUC 108* -- -- -- 75 CA 8.7 -- -- -- 8.7 P 3.9 -- -- -- 3.9 < > = values in this interval not displayed. Liver Function, Amylase, AND Lipase Recent Labs 11/28/17 0530 11/26/17 2252 11/26/17 1926 11/26/17 1610 11/26/17 0514 ALB 3.4* -- -- -- -- 3.3* LACT -- 1.6 Unable to assay. Specimen improperly collected/handled. 2.6* < > -- < > = values in this interval not displayed. Impression/Recommendations 27 y/o female?with PMHx of 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 Recent admission 10/13/17-10/23/17 for hemoptysis and SOB, requiring intubation, was in MICU for management of DAH. readmitted to MICU again for ?extensive left retroperitoneal hemorrhage?s/p IR guided intervention (initially on 10/23 at [facility] and 10/26 here at [facility]. ? # Antiphospholipid antibody syndrome -recent?home therapy : Prednisone 60 mg ( home dose 5 mg), Cytoxan 75 mg ( home dose 150 mg), pheresis QOW ?-Continue prednisone 40 mg o daily ( SD 11/21) ?-Cytoxan stopped on 11/09 given persistent thrombocytopenia as this might he causing myelosuppression -Next PLEX is due on 12/11 -will f/u with Dr. Andujar on same day -given N plate 2mcg/kg sq x1 on 11/09 , 3 mcg/kg on 11/13, and 4 mcg/kg on 11/17. No further doses planned at this time ?-PLT count has normalized. started on bival with bridging to coumadin. -Appreciate vascular medicine assistance ? ?#Extensive left retroperitoneal hemorrhage -likely secondary to anticoagulant -sp IR intevention on 10/23 and 10/26? -Hemoglobin has been stable ? #Abnormal hemolysis labs - with elevated LD, elevated retic, and an undetectable hapto. Hemoglobin has been stable. - ?Direct [place] is negative -ADAMTS 13 activity resulted at 56 % speaking against TTP -Abnormal hemolysis labs likely?related to resolving hematoma. Will Sign Off Discussed with Dr. Kar Willett MD Heme/onc Fellow THERAPY NT Observed: 11/28/2017 Status: COMPLETED Source: [place] 3:19 PM [facility] REPOSITORY HNO ID: [id number] Author: Tamiko (Pt) Adelaida Service: Physical Therapy Author Type: Physical Therapist Type: Therapy (PT/OT/Speech/Resp) Filed: 11/28/2017 3:25 PM Note Text: Physical Therapy Wound/Lymph Treatment SERVICE DATE: 11/28/2017 SERVICE TIME: 1443 to 1510 ROOM: [place] [address] Recommended Discharge Disposition Comments: will require further assessment Anticipated Discharge Needs: Undetermined PT Recommendations to Nursing: With assist of 1 person;Transfer to/from chair;OOB for Meals 6 Clicks Score: 14 Skin Condition: BLE lymphedema Frequency of Dressing Change:Daily?- compression wraps to be worn during the day hours ?Physical Therapy to Perform Dressing Change: 4x/week to be coordinated with nursing ?Nursing to Perform Dressing Change:1x/day Monday and Monday Dressing/Treatment Type: See Clinical Documentation report for specific dressing information. ASSESSMENT : Today pt with increased edema in her thighs, hips, and abdomen with visible weeping of serous fluid from her hips. Circumferential measurements today showed some fluctuations but generally edema appears to be improved today in the distal extremities. Deferred adding more compression to the thighs today due to abdomen swelling and concern for fluid moving aggressively to the lungs. Will still work with patient toward this option. Pt is physically unable to perform compression wrapping therefore will need to perform training with a family member. ?Plan to continue with current POC at this time. Patient Disposition at Start of Session: Supine in Bed Patient Disposition at End of Session: Supine in Bed;Bed Alarm;Call Wagoner in Reach Tolerated Full Session Fatigue;Pain Physical Therapy Problem List: Cognitive Deficit;Education Deficit;Decreased Activity Tolerance;Decreased Strength;Functional Mobility Impairment Patient /Caregiver Goals: Unique to general PT Goals for Plan of Care: 1. ?Decongestion of BLE?with girth measurements decreased by 2-4?cm per segment to increase level of independence with functional mobility and ADL's, decrease pain, decrease recurrence of infection, improved range of motion and allow appropriate fit in compressive garment. ?? 2. ??Pt and/or caregiver will demonstrate compliance in knowledge of lymphedema precautions including meticulous skin and nail care to reduce risk of infection and further exacerbation. 3. ??Pt and/or caregiver will demonstrate the correct method of Lymphatic Bandaging/compression technique and independent understanding of the principles and theory of compression 4. ??Pt and/or caregiver will be independent in their exercise program to enchance Lymphatic flow and decongestion of the affected body parts 5. Patient/ Caregiver will be able to demonstrate competence with offloading recommendations and pressure relieving strategies 6. Patient/ Caregiver will be able to state the signs and symptoms of infection Progress Toward Goals: Progressing as expected Due To: medical status Rehab Potential: Fair PLAN: Treatment Frequency (times per week): 4 Current admission Treatment Interventions: Education;Self Care / Home Management;Joint Mobility;Strengthening;Functional Mobility Training;Balance Training;Edema Management;Pain Management Plan of Care developed with: Patient TREATMENT INTERVENTIONS: Interventions Provided: Manual Therapy (44720) Manual Therapy (60821) Treatment Minutes: 25 2 units Skilled Intervention: Manual skills to improve joint mobility, range of motion, and decrease pain. Educated patient on the following aspect of Complete Decongestive Therapy (CDT): 1.??Compressive Therapy: Discussed rationale for compression garment and bandaging Instructed in proper technique for compression wrapping Skilled interventions: - Increase lymaphtic fluid dynamics - Increase skin extensibility - Utilized anatomy knowledge of the therapist, and assessment of patient's response to intervention. ? Manual Compression performed: 1. ?Skin inspected and?cleansed thoroughly 2. ?Applied lotion?to BLE? 3. ?Applied 1 surgigrip?+ 1 ABD pad at the foot/ ankle + 1?surepress wraps applied at 50% tension?with a 50% overlap (deferred ankle padding today). ? Spoke at length with pt re: when to loosen or remove the bandages (i.e.: in the event that pain becomes a limiting factor or pt experienced new onset SOB or worsening of respiratory status). Pt verbalized understanding. ? Education: 1. ?Discussed with patient and nursing the risks and benefits of compression therapy and how compression is indicated in this case. 2. ?Reviewed?proper technique for compression wrapping.? ? Total Timed Code Treatment Minutes: 25 Total Treatment Time (minutes): 25 SUBJECTIVE: Current Hospital Course: Chart reviewed and no significant medical updates relevant to therapy were noted Patient Report: What do I do about all of the fluid weeping out of my hips. Pt with c/o drainage and increased fluid accumulation in her hips, thighs, abdomen. 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 Entry To Home: No Stairs Number Of Stairs To Bed/Bath: 0 Tub/Shower Type: walk in shower Equipment Owned: Commode-Raised;Grab Bars-Shower;Grab Bars-Toilet;Shower Chair;Home Oxygen Prior Functional Level: Required Assistance Assistance Required With: Cleaning;Laundry;Meals;Shopping;Transportation Prior Wound Care: Other: See Comment (unable to don compression stockings (I)) OBJECTIVE: Location Date: 11/27/17 Date: 11/28/17 Right Left Right Left Metatarsal Heads 23.25cm 23.75cm 24.25cm 22.5cm Ankle ([place]) 24.25cm 24cm 24.5cm 25.5cm 10cm above malleoli 29.5cm 27.75cm 26.5cm 26cm 20cm above malleoli 44cm 41.5cm 40cm 38.5cm 30cm above malleoli 50.5cm 44.5cm 48.75cm 45cm Location ?Date: ? 11/17/17 ?Date: ? 11/22/17 Date: 11/23/17 Right Left Right Left Right Left Metatarsal Heads 25.5cm 24cm 24cm 23cm 23.5cm 22cm Ankle ([place]) 24.5cm 24.5cm 21cm 22.25cm 24cm 24cm 10cm above malleoli 28.5cm 28.25cm 24cm 23cm 28cm 27cm 20cm above malleoli 44cm 40.5cm 36.5cm 34.5cm 43.5cm 39.5cm 30cm above malleoli 49cm 44.5cm 47cm 44cm 45cm 45.5cm ? Location Evaluation Date: ? 08/01/17 Date: ? 11/03/17 Date: 11/16/17 Right Left Right Left Right Left Metatarsal Heads 24cm 22.5cm 24cm 24cm 24cm 24.5cm Ankle ([place]) 23.25cm 22.5cm 24cm 25cm 24.5cm 25cm 10cm above malleoli 28.5cm 28cm 30cm 27.5cm 31cm 29.5cm 20cm above malleoli 42cm 43.25cm 42cm 40cm 46cm 42cm 30cm above malleoli 45.5cm 41.5cm 46cm 47cm 46cm 44.5cm LLE Circumferential Measurements: Metatarsal Heads;Ankle;10 cm;20 cm;30 cm Left Metatarsal Heads: 22.5cm Left Ankle: 25.5cm Left Lower Extremity 10cm: 26cm Left Lower Extremity 20cm: 38.5cm Left Lower Extremity 30cm: 45cm RLE Circumferential Measurements: Metatarsal Heads;Ankle;10 cm;20 cm;30 cm Right Metatarsal Heads: 24.25cm Right Ankle: 24.5cm Right Lower Extremity 10cm: 26.5cm Right Lower Extremity 20cm: 40cm Right Lower Extremity 30cm: 48.75cm Sensation Sensation: Right Lower Extremity;Left Lower Extremity Right Lower Extremity Sensation: Light Touch RLE Light Touch: Intact Left Lower Extremity Sensation: Light Touch LLE Light Touch: Intact Circulation Pulses: Right Dorsalis Pedis;Left Dorsalis Pedis Right Dorsalis Pedis Pulse: (unable to palpate due to lymphedema; present via doppler) Left Dorsalis Pedis Pulse: (unable to palpate due to lymphedema; present via doppler) Capillary Refill: Right Lower Extremity;Left Lower Extremity Right Lower Extremity Capillary Refill: Intact Left Lower Extremity Capillary Refill: Intact See Clinical Documentation report for Skin Documentation. Current Functional Mobility Assist Level Additional Information Rolling Contact Guard Assistance Supine to Sit Contact Guard Assistance Sit to Supine Moderate Assistance (BLE) Scooting Contact Guard Assistance Sit to Stand Minimal Assistance Stand to Sit Minimal Assistance Bed to Chair Minimal Assistance Toilet/Commode Minimal Assistance Gait Minimal Assistance Gait Device: Wheeled Walker Gait Distance (feet): 4' x 2 General Gait Deviations: Delmy decreased;Step length decreased;Wide base of support Balance: Static Sitting;Dynamic Sitting;Static Standing;Dynamic Standing Static Sitting Balance: Stand By Assistance Dynamic Sitting Balance: Contact Guard Assistance Static Standing Balance: Minimal Assistance Dynamic Standing Balance: Minimal Assistance Please see discipline specific clinical documentation flowsheet for complete details for this therapy evaluation/treatment. SIGNATURE: Tamiko Son PT PATIENT NAME: Paloma Cannon DATE: November 28, 2017 TIME: 3:19 PM PAGER/CONTACT #: [phone] NURSING PROG Observed: 11/28/2017 Status: COMPLETED Source: [place] 3:14 PM [facility] REPOSITORY O ID: [id number] Author: Zoila SanchezRn) JEFF Cullen Service: Nursing Author Type: Registered Nurse Type: Nursing Progress Note Filed: 11/28/2017 3:17 PM Note Text: Nursing Progress Note Patient Name: Paloma Cannon Patient Location: H080 019/H080-20 Daily Note: Pt AANDOx3. VSS. Pt c/o pain, treated per sep. Pt up with one assist. Fall/safety precautions in place. Skin care protocol in place. 1430: Pt refusing third lactulose, says two is enough and she will have a bowel movement tonight. Pt also weeping from R thigh. Dr. Reyez notified in person. Bival infusing per mar, pt is therapeutic. This note was completed by: Zoila Cullen RN PROGRESS Observed: 11/28/2017 Status: COMPLETED Source: [place] 3:08 PM [facility] REPOSITORY HNO ID: [id number] Author: Olga Reyez Service: General Internal Medicine Author Type: Resident Type: Progress Notes Filed: 11/28/2017 3:21 PM Note Text: Attestation signed by Zhou Lang at 11/28/2017 3:[address] FRED STONE, SR. HOSPITAL STAFF PHYSICIAN NOTE OF PERSONAL INVOLVEMENT IN CARE I have reviewed the progress note obtained and documented by the resident and I personally participated in the fernandes components. Patient seen and discussed with house staff on rounds. The following comments revise or confirm relevant fernandes components of their note. Ms. Cannon was somnolent but rousable on rounds this morning. Otherwise, she was essentially unchanged compared to yesterday -- oxygen requirements are stable, her left-sided inspiratory chest pain remains, and her ongoing left-sided groin pain continues. She is now essentially therapeutic on warfarin (INR 1.9); we should be able to safely discontinue bivalrudin tomorrow. We will also continue to work with Ms. Cannon to minimize high-risk medications. She certainly has reasons for acute pain, but I am concerned that her somnolence is secondary to medications (oxycodone, hydromorphone, cyclobenzaprine, gabapentin, diphenhydramine), and that such a cocktail confers an awfully high risk of iatrogenesis. Detailed plan per house staff note. I remain available for questions/discussion, if helpful. SIGNATURE: Zhou Lang MD PAGER: [phone] DATE of SERVICE: 11/28/2017 TIME of SERVICE: 3:38 PM [facility] A PROGRESS NOTE For questions regarding this patient today please page [phone] After 5 pm on weekdays and 3pm on weekends and holidays please page documentation clerk pager [phone] SERVICE DATE: 11/28/2017 SERVICE TIME: 3:09 PM INTERVAL HISTORY: - No acute events overnight - HDS, 93% on 5L NC - still no explanation for her new oxygen requirements. High suspicion for pulmonary embolism. Already on anticoagulation with bivalirudin + coumadin - received PLEX yesterday - INR 1.9 - platelets improving, Hgb stable. PLAN FOR TODAY - bivalirudin + coumadin 7.5 mg today; day 6 today - lactulose + miralax +senna-s for constipation - monitor for signs of fresh bleeding and new pain (Left RP and abdominal pain) - appreciate VM and heme recs - monitor platelet and Hgb levels - c/w torsemide 20 mg qday; strict I/O - desaturation study required prior to discharge - N-plate this week, per Heme - next apheresis scheduled for -. May affect coumadin levels. - will hold off on imaging studies to assess for PE given that it will not change managements at this time (already on AC) and given recent history of CAPRICE. MEDICATIONS: Current hospital medications: lactulose 20 g CUP (DUPHALAC, CONSTULOSE) 20 g ORAL q 2 H warfarin 7.5 mg tab(s) (COUMADIN) 7.5 mg ORAL ONCE - WARFARIN sodium citrate 4% 3-6 mL catheter lock 3-6 mL INTRALUMINAL APHERESIS PRN lidocaine 5 % 1 Patch (LIDODERM) 1 Patch TRANSDERMAL DAILY lidocaine patch - REMOVE OTHER AT BEDTIME lidocaine - VERIFY PATCH OTHER q 8 H warfarin order for discharge OTHER PRN hyoscyamine sublingual 0.25 mg tab(s) (LEVSIN SL) 0.25 mg SUBLINGUAL TID PRN oxyCODONE IR 5 mg tab(s) (ROXICODONE) 5 mg ORAL/FEEDING TUBE q 4 H PRN [id number] 10 mL oral liquid (BMX 1:1:1) 10 mL ORAL q 2 H PRN bivalirudin 250 mg in D5W 250 mL (ANGIOMAX) 0.1 mg/kg/hr INTRAVENOUS CONTINUOUS gabapentin 400 mg cap(s) (NEURONTIN) 400 mg ORAL TID cyclobenzaprine 10 mg tab(s) (FLEXERIL) 10 mg ORAL AT BEDTIME cyclobenzaprine 10 mg tab(s) (FLEXERIL) 10 mg ORAL BID PRN NIFEdipine ER 60 mg tab(S) (PROCARDIA XL) 60 mg ORAL BID predniSONE 40 mg tab(s) (DELTASONE) 40 mg ORAL/FEEDING TUBE DAILY HYDROmorphone 0.3 mg in NaCl 0.9% (DILAUDID) 0.3 mg INTRAVENOUS q 6 H PRN acetaminophen 1,000 mg tab(s) (TYLENOL) 1,000 mg ORAL TID torsemide 20 mg tab(s) (DEMADEX) 20 mg ORAL DAILY 0.9% NaCl 10 mL 10 mL INTRAVENOUS q 12 H 0.9% NaCl 20 mL 20 mL INTRAVENOUS PRN albuterol 2.5 mg /3 mL (0.083 %) 2.5 mg (PROVENTIL) 2.5 mg INHALATION q 4 WEEKS pentamidine 300 mg nebulizer solution (NEBUPENT) 300 mg INHALATION q 4 WEEKS carvedilol 25 mg tab(s) (COREG) 25 mg ORAL/FEEDING TUBE BID w MEALS lidocaine 5 % 1 Patch (LIDODERM) 1 Patch TRANSDERMAL DAILY lidocaine patch - REMOVE OTHER AT BEDTIME lidocaine - VERIFY PATCH OTHER q 8 H polyethylene glycol 3350 17 g packet (MIRALAX, GLYCOLAX) 17 g ORAL/FEEDING TUBE DAILY docusate sodium 100 mg cap(s) (COLACE) 100 mg ORAL BID senna 8.6 mg tab(s) (SENOKOT) 8.6 mg ORAL/FEEDING TUBE BID pantoprazole DR 40 mg tab(s) (PROTONIX) 40 mg ORAL DAILY (6 AM) ondansetron 8 mg tab(s) (ZOFRAN) 8 mg ORAL q 8 H PRN diphenhydrAMINE 50 mg (BENADRYL) 50 mg ORAL/FEEDING TUBE q 6 H PRN hydrocortisone sodium succinate (PF) 100 mg injection (Solu- CORTEF) 100 mg INTRAVENOUS q 4 H PRN diphenhydrAMINE 50 mg injection (BENADRYL) 50 mg INTRAVENOUS q 4 H PRN prochlorperazine 5 mg injection (COMPAZINE) 5 mg INTRAVENOUS q 6 H PRN dextrose 50% in water 25-50 mL syringe 12.5-25 g INTRAVENOUS PRN dextrose 40 % 15 g 15 g ORAL PRN glucagon 1 mg injection (GLUCAGEN) 1 mg SUBCUTANEOUS PRN HOME MEDICATIONS: cyclophosphamide (CYTOXAN) 50 mg capsule Take 150 mg by mouth once daily. diphenhydrAMINE (BENADRYL) 50 mg capsule Take 1 capsule by mouth every 6 hours as needed for Itching/Rash. gabapentin (NEURONTIN) 100 mg capsule Take 1 capsule by mouth three times daily for 7 days. ondansetron (ZOFRAN, HYDROCHLORIDE,) 8 mg tablet Take 8 mg by mouth every 8 hours as needed for Nausea/Vomiting. pantoprazole DR (PROTONIX) 40 mg tablet Take 40 mg by mouth daily at bedtime. sulfamethoxazole-trimethoprim (BACTRIM DS) 800-160 mg per tablet Take 1 tablet by mouth every Monday,Monday,Monday. fluticasone (FLONASE) 50 mcg/actuation nasal spray Use 1-2 Sprays in each nostril once daily as needed for Cold/Allergy Symptoms (starting in allergy season). senna 8.6 mg tab Take 1 tablet by mouth twice daily as needed. PHYSICAL EXAM: VITAL SIGNS Patient Vitals for the past 24 hrs: BP Temp Temp src Pulse Resp SpO2 11/28/17 1021 129/77 36.8 ?C (98.2 ?F) Oral 85 20 94 % 11/28/17 0808 156/97 - - 104 - - 11/28/17 0558 145/94 36.3 ?C (97.4 ?F) Oral 88 18 93 % 11/28/17 0200 141/82 36.8 ?C (98.3 ?F) Oral 91 20 95 % 11/27/17 2200 137/76 36.6 ?C (97.9 ?F) Oral 82 20 94 % 11/27/17 2039 123/83 - - 89 - - 11/27/17 1830 137/94 36.8 ?C (98.2 ?F) Oral 91 18 93 % 11/27/17 1600 135/79 36.6 ?C (97.8 ?F) Oral 93 16 93 % BP 129/77 Pulse 85 Temp 36.8 ?C (98.2 ?F) (Oral) Resp 20 Ht 160 cm (5' 3) Wt 102.3 kg (225 lb 8.5 oz) SpO2 94% BMI 39.95 kg/m? Temp (24hrs), Av.7 ?C (98 ?F), Min:36.3 ?C (97.4 ?F), Max:36.8 ?C (98.3 ?F) INTAKE/OUTPUT Intake/Output Summary (Last 24 hours) at 11/28/17 1509 Last data filed at 11/28/17 1500 Gross per 24 hour Intake 510 ml Output 1 ml Net 509 ml General: Alert, oriented, cooperative.?In no acute distress. 5L NC Skin:?Chronic skin changes on bilateral LE below the knee?due to lymphedema HEENT: EOM. Pupils equal, round and reactive Cardiovascular: RRR. No murmur Chest: TTP over lower left chest Lungs: Crepitations at the bases than prior Abdomen: Soft, TTP in LUQ, no masses or organomegaly. Varicose veins bilaterally. Extremities: 2+ peripheral edema but improving,?+2 DP pulses bilaterally Neurological: Moving all extremities freely? LAB DATA: CBC, Coags, BMP, Mg, Phos Recent Labs 11/28/17 0530 11/27/17 0516 11/26/17 1604 11/26/17 0514 WBC 6.74 6.06 -- -- 6.70 HB 10.9* 11.2* 11.1* < > 11.3* HCT 33.9* 35.3* -- -- 34.9* PLT 160 165 -- -- 130* INR 1.9* 1.5* -- -- 1.4* APTT 57.7* 57.2* -- -- 54.7* NA 138 -- -- -- 140 K 3.8 -- -- -- 3.9 CHLOR 98 -- -- -- 100 CO2 29 -- -- -- 26 BUN 40* -- -- -- 38* CREAT 1.37* -- -- -- 1.34* GLUC 108* -- -- -- 75 CA 8.7 -- -- -- 8.7 P 3.9 -- -- -- 3.9 < > = values in this interval not displayed. ASSESSMENT AND PLAN: Active Hospital Problems Diagnosis - Retroperitoneal hematoma Retroperitoneal bleed: s/p 7 units PRBCs s/p IR emobolization of left L3 artery at [place] on 10/23 IR embolization of left L2 and L3 arteries on 10/26 CT abd/pel 10/31: RP bleed stable when compared to previous imaging from 10/27 LDH 1730, haptoglobin <10, Tbili 1.3- concern for hemolysis as well. 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 Has received stenting of IVC and iliacs along with endograft of IVC. 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 C/B extensive RP bleed s/p L2, L3 embolization. N-plate 11/09, 11/13 Received Apheresis on 11/03, 11/13 (heme following); patient is on [id number] (Mondays), next scheduled for 11/27 11/22: started bivalirudin for bridge to coumadin (on 2.5 alternating w 5 mg coumadin) Plan: Holding Cytoxan 75 mg in setting of worsening thrombocytopenia Continue prednisone 40 mg withpentamidine ppx Appreciate hematology and VM recs c/w with bivalirudin and start coumadin bridge. Bivalirudin and coumadin should overlap for a minimum of 5 days until INR is therapeutic before Bivalirudin can be discontinued - CAPRICE (acute kidney injury) (HCC) CAPRICE on CKD III, 2/2 contrast, improved to S.Cr-1.3 Received IHD during this admission but renal recover and IHD was held Plan: Nephrology following- appreciate recommendations Daily BMPs to watch K, Na and phosphorus levels Renal dosing of medication Avoid excess fluids and nephrotoxic drugs - HTN (hypertension) Mildly decreased systolic function, diastolic function indeterminate on 10/13/17 ECHO. 10/28: Run of SBP in 200s overnight (likely d/t pain), given hydralazine however still consistently in 170s-180s 10/29: Still hypertensive, required 4 doses of hydralazine overnight Switched Amlodipine 10 mg to nifedipine 30mg on 11/10, and increased Coreg from 6.25 to 25 mg BID Plan: Nifedipine 60 mg BID and keeping Coreg 25 mg at current dosing Can consider adding PRN hydralazine for SBP>180 mm Hg, Also on torsemide for volume - Diffuse pulmonary alveolar hemorrhage Currently stable, no new episodes Has had 6 admissions recently for acute respiratory failure requiring mechanical ventilation Cytoxan was reduced from 150 to 75 mg due to concern for BM toxicity; renally dosed Decreased prednisone from 60 to 40 mg Plan: Continue to monitor respiratory status Continue oxygen therapy at 2L NC Holding Cytoxan in setting of worsening thrombocytopenia Continue Prednisone 40 mg daily Switched bactrim to pentamidine for ppx on 11/12 Will reach out to outpatient provider regarding switch to pentamidine from bactrim, per heme recs - Moraxella catarrhalis pneumonia (HCC) Had respiratory cultures growing Moraxella catarrhalis Received ceftriaxone 10/27-11/03- 7 days therapy WBC trended down from 21 K to 12K. Currently at baseline O2 requirement but still slightly tachypneic Completed course of ceftriaxone. Plan: Continue to monitor respiratory status closely BPH per RT Incentive spirometry - Peripheral neuropathy - History of heparin-induced thrombocytopenia Avoid all heparin products. 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 - Left groin pain 10/27: C/o acute painin morning, access site for embolization at [facility], no erythema or induration appreciated on exam, exquisitely TTP Groin study showed no signs of PSA, known AV fistula visualized with retrograde flow, vascular med aware- no further recs 10/28: pain less severe, no physical exam findings Repeat Leg DVT shows no pseudoaneurysm Likely due to nerve compression/RP hematoma causing compressive symtpoms S/p R groin drain placed at [facility] on 10/24 s/p L groin drain placed at [facility] during embolization on 10/26 Plan: - repeat image showed decreased size - will continue to monitor symptoms and HANDH w low threshold for imaging MAINTENANCE: VTE PROPHYLAXIS:?bivalirudin + coumadin (day 6) NEED FOR ZUNIGA- Removed 11/14/17 LINES: Double lumen dialysis catheter 10/25/17 Dispo-?Acute rehabilitation center This note is not final until staffed by the attending physician and authenticated by responsible provider. SIGNATURE: Olga Reyez MD PATIENT NAME: Paloma Cannon DATE: November 28, 2017 TIME: 3:09 PM PAGER: [phone] ALLIED HEALTH Observed: 11/28/2017 Status: COMPLETED Source: [place] 2:30 PM [facility] [place] REPOSITORY HNO ID: [id number] Author: Kayla Stewart (Therapist) GINA Levin Service: Music Therapy Author Type: Music Therapist Type: Allied Health Filed: 11/29/2017 9:41 AM Note Text: MUSIC THERAPY NOTE SERVICE DATE: 11/28/2017 Pt presented with grimacing affect upon MT's arrival, expressing high level of pain currently. MT offered session to assist with needs, to which pt stated that she was currently listening to recorded music. MT provided brief education on effectiveness of a muisc-based intervention to assist with pain provided by MT compared to passively listening to recorded music, to which pt expressed understanding, though chose to decline currently. Pt requested follow up another day and MT will follow up as able. SIGNATURE: Kayla Levin MT- PATIENT NAME: Paloma Cannon DATE: November 29, 2017 TIME: 9:38 AM PAGER/CONTACT #: [phone] XR CHEST 1V FRONTAL Observed: 11/28/2017 Status: F Source: [facility] 12:20 PM [facility] [place] REPOSITORY * * *Final Report* * * DATE OF EXAM: Nov 28 2017 12:20PM HALINA [id number] - XR CHEST 1V FRONTAL PORT / PROCEDURE REASON: SOB, volume overload, heart failure suspected * * * * Physician Interpretation * * * * EXAMINATION: CHEST RADIOGRAPH (PORTABLE SINGLE VIEW AP) Exam Date/Time: 11/28/2017 12:20 PM Clinical History: SOB, volume overload, heart failure suspected MQ: [id number] Comparison: 1 day prior RESULT: See impression. IMPRESSION: Lines, tubes, and devices: Left IJ venous catheters terminate close to the superior cavoatrial junction. Lungs and pleura: Patchy reticular opacities are noted, likely related to pulmonary edema. No substantial pleural effusions or pneumothorax are noted. Cardiomediastinal silhouette: Cardiac silhouette is enlarged with pulmonary venous congestion. Other: . Practice Support Specialist: PSCB Transcribe Date/Time: Nov 28 2017 12:31P Dictated by : MAHOGANY ECHAVARRIA MD This examination was interpreted and the report reviewed and electronically signed by: MAHOGANY ECHAVARRIA MD on Nov 28 2017 12:32PM EST [id number] THERAPY NT Observed: 11/28/2017 Status: COMPLETED Source: [place] 9:55 AM [facility] REPOSITORY HNO ID: [id number] Author: Akanksha Boltonr/LDevonte Murdock Service: Occupational Therapy Author Type: Occupational Therapist Type: Therapy (PT/OT/Speech/Resp) Filed: 11/28/2017 9:56 AM Note Text: OCCUPATIONAL THERAPY MISSED VISIT SERVICE DATE: 11/28/2017 SERVICE TIME: 0950 to 0953 ROOM: [place] [address] Attempted Treatment. Patient not seen due to Sleeping. SIGNATURE: JERMAINE Anand/Allie PATIENT NAME: Paloma Cannon DATE: November 28, 2017 TIME: 9:55 AM PAGER/CONTACT #:[phone] THERAPY NT Observed: 11/28/2017 Status: COMPLETED Source: [place] 9:33 AM [facility] REPOSITORY HNO ID: [id number] [facility]: [facility] Service: Physical Therapy Author Type: Ancillary Specialist Type: Therapy (PT/OT/Speech/Resp) Filed: 11/28/2017 9:34 AM Note Text: Attestation signed by Brenda SanchezPt) Kt at 11/28/2017 10:44 AM I reviewed and agree with the assessment as documented above. SIGNATURE: Bredna Meraz, PT DATE: November 28, 2017 TIME: 10:44 AM PHYSICAL THERAPY MISSED VISIT SERVICE DATE: 11/28/2017 SERVICE TIME: 932 to 932 ROOM: [place] [address] Attempted Treatment. Patient not seen due to Test/Procedure. SIGNATURE: Indra Woods PTA PATIENT NAME: Paloma Cannon DATE: November 28, 2017 TIME: 9:34 AM PAGER/CONTACT #: [phone] CONSULT PROG Observed: 11/28/2017 Status: COMPLETED Source: [place] 9:32 AM [facility] REPOSITORY HNO ID: [id number] Author: Magdalena (Cinder Crane Operator) Chano Molina Service: Vascular Medicine Author Type: Nurse Practitioner Type: Consult Progress Note Filed: 11/28/2017 1:01 PM Note Text: VASCMED CONSULT PROGRESS NOTE Subjective Follow Up Regarding: APS, remote hx of HIT INTERVAL HPI and PERTINENT ROS: Day 6 of coumadin, INR 1.9 >>falsely elevated d/t bival/apheresis Received apheresis yesterday LL anterior chest discomfort, slightly better Denies any outward signs of bleeding or hemoptysis platelets 160k hgb 10.9 aPTT 57.7 Current Facility-Administered Medications: sodium citrate 4% 3-6 mL catheter lock 3-6 mL INTRALUMINAL APHERESIS PRN lidocaine 5 % 1 Patch (LIDODERM) 1 Patch TRANSDERMAL DAILY And lidocaine patch - REMOVE OTHER AT BEDTIME And lidocaine - VERIFY PATCH OTHER q 8 H warfarin order for discharge OTHER PRN hyoscyamine sublingual 0.25 mg tab(s) (LEVSIN SL) 0.25 mg SUBLINGUAL TID PRN oxyCODONE IR 5 mg tab(s) (ROXICODONE) 5 mg ORAL/FEEDING TUBE q 4 H PRN ioizpzbbsjCUTOJ-iczpdv-isufixcvz 10 mL oral liquid (BMX 1:1:1) 10 mL ORAL q 2 H PRN bivalirudin 250 mg in D5W 250 mL (ANGIOMAX) 0.1 mg/kg/hr INTRAVENOUS CONTINUOUS gabapentin 400 mg cap(s) (NEURONTIN) 400 mg ORAL TID cyclobenzaprine 10 mg tab(s) (FLEXERIL) 10 mg ORAL AT BEDTIME cyclobenzaprine 10 mg tab(s) (FLEXERIL) 10 mg ORAL BID PRN NIFEdipine ER 60 mg tab(S) (PROCARDIA XL) 60 mg ORAL BID predniSONE 40 mg tab(s) (DELTASONE) 40 mg ORAL/FEEDING TUBE DAILY HYDROmorphone 0.3 mg in NaCl 0.9% (DILAUDID) 0.3 mg INTRAVENOUS q 6 H PRN acetaminophen 1,000 mg tab(s) (TYLENOL) 1,000 mg ORAL TID torsemide 20 mg tab(s) (DEMADEX) 20 mg ORAL DAILY 0.9% NaCl 10 mL 10 mL INTRAVENOUS q 12 H 0.9% NaCl 20 mL 20 mL INTRAVENOUS PRN albuterol 2.5 mg /3 mL (0.083 %) 2.5 mg (PROVENTIL) 2.5 mg INHALATION q 4 WEEKS And pentamidine 300 mg nebulizer solution (NEBUPENT) 300 mg INHALATION q 4 WEEKS carvedilol 25 mg tab(s) (COREG) 25 mg ORAL/FEEDING TUBE BID w MEALS lidocaine 5 % 1 Patch (LIDODERM) 1 Patch TRANSDERMAL DAILY And lidocaine patch - REMOVE OTHER AT BEDTIME And lidocaine - VERIFY PATCH OTHER q 8 H polyethylene glycol 3350 17 g packet (MIRALAX, GLYCOLAX) 17 g ORAL/FEEDING TUBE DAILY docusate sodium 100 mg cap(s) (COLACE) 100 mg ORAL BID senna 8.6 mg tab(s) (SENOKOT) 8.6 mg ORAL/FEEDING TUBE BID pantoprazole DR 40 mg tab(s) (PROTONIX) 40 mg ORAL DAILY (6 AM) ondansetron 8 mg tab(s) (ZOFRAN) 8 mg ORAL q 8 H PRN diphenhydrAMINE 50 mg (BENADRYL) 50 mg ORAL/FEEDING TUBE q 6 H PRN hydrocortisone sodium succinate (PF) 100 mg injection (Solu- CORTEF) 100 mg INTRAVENOUS q 4 H PRN diphenhydrAMINE 50 mg injection (BENADRYL) 50 mg INTRAVENOUS q 4 H PRN prochlorperazine 5 mg injection (COMPAZINE) 5 mg INTRAVENOUS q 6 H PRN dextrose 50% in water 25-50 mL syringe 12.5-25 g INTRAVENOUS PRN dextrose 40 % 15 g 15 g ORAL PRN glucagon 1 mg injection (GLUCAGEN) 1 mg SUBCUTANEOUS PRN Objective PHYSICAL EXAM: BP 156/97 Pulse 104 Temp 36.3 ?C (97.4 ?F) (Oral) Resp 18 Ht 160 cm (5' 3) Wt 102.3 kg (225 lb 8.5 oz) SpO2 93% BMI 39.95 kg/m? General: resting in bed quietly, in NAD Cardiac: RRR, normal S1S2 Respiratory: clear B/L, on 5LNC Abdominal/GI: soft, non-tender Extremity: mild edema, chronic skin changes Skin: warm, dry Pulse/vascular exam: B/L + 2 rad/pt DATA: Diagnostic tests reviewed for today's visit: Most recent labs and imaging results. Most recent labs CBC, Coags, BMP, Mg, Phos Recent Labs 11/28/17 0530 11/27/17 0516 11/26/17 1604 11/26/17 0514 WBC 6.74 6.06 -- -- 6.70 HB 10.9* 11.2* 11.1* < > 11.3* HCT 33.9* 35.3* -- -- 34.9* PLT 160 165 -- -- 130* INR 1.9* 1.5* -- -- 1.4* APTT 57.7* 57.2* -- -- 54.7* NA 138 -- -- -- 140 K 3.8 -- -- -- 3.9 CHLOR 98 -- -- -- 100 CO2 29 -- -- -- 26 BUN 40* -- -- -- 38* CREAT 1.37* -- -- -- 1.34* GLUC 108* -- -- -- 75 CA 8.7 -- -- -- 8.7 P 3.9 -- -- -- 3.9 < > = values in this interval not displayed. 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 Hospital course further c/b severe thrombocytopenia and CAPRICE requiring dialysis. AC was held x 4 weeks, now resumed yesterday. Hematology following , patient has received apheresis, Nplate and cytoxan currently being held. She is currently on bival to coumadin bridge. Renal function has recovered. She is currently on bival to coumadin bridge. Hemoglobin stable and platelets continue to uptrend with no clinical signs of bleeding. She is planned for apheresis on Monday. Now w/ new c/o's LUQ pain, abdominal CT scan prelim report, shows interval decrease in size of hematoma Estimated Creatinine Clearance: 69.9 mL/min (A) (based on SCr of 1.37 mg/dL (H)). . Plan : Day 6 of coumadin, INR 1.9 (2.0-3.0), aPTTs are unreliable within 48 hours of receiving apheresis Recommend giving 7.5mg of coumadin x 1 tonight aPTT 57.7(46-65) therapeutic, continue with 0.1mg/kg/hr and repeat aPTT tomorrow morning. Please call [facility] [phone] if not within therapeutic range Bival and Coumadin should overlap for a minimum of 5 days and until INR is therapeutic before Bival can be discontinued. aPTTs, CBC/INR daily in house Duration of treatment: fpc Upon discharge, INR management to be resumed by Vascular Medicine SIGNATURE: Magdalena Lewis APRN.CNP PATIENT NAME: Paloma Cannon DATE: November 28, 2017 TIME: 12:46 PM PAGER/CONTACT #: [phone] . PROTIME Collected: 11/28/2017 Status: F Source: [place] 5:30 AM [facility] [place] REPOSITORY TYPE CODE TESTS RESULT OUT OF RANGE REFERENCE UNITS LAB PSEC 9.7-13.0 sec High PT Sec 19.1 LAB INR 0.9-1.3 High PT INR 1.9 Result Comment: Vitamin K Antagonist (VKA) Therapeutic Range: INR 2 to 3 (Target INR of 2.5) Note: For patients treated with VKA drugs, such as warfarin, the [place] [employer] 2012 Guideline recommends a therapeutic INR range of 2 to 3 (target INR of 2.5). This recommendation includes high-risk patients with antiphospholipid syndrome with previous arterial or venous thromboembolism, current-generation mechanical or bioprosthetic aortic heart valve replacement. Note: Patients with mechanical aortic valve replacement and additional risk factors for thromboembolic events (atrial fibrillation, previous thromboembolism, LV dysfunction, hypercoagulable conditions) or an older generation mechanical AVR (i.e., ball in-Cage) or any mechanical MVR should have a INR therapeutic range of 2.5 to 3.5 (target INR of 3). Michael GH, et al. Chest 2012, 141:7S-47S Diogenes RA, et al. [facility] 2017, 70: 252-289 Performed By: #### PT, PTT, CBC, RFP #### [facility] [address] [place], [place] [id number] APTT Collected: 11/28/2017 Status: F Source: [place] 5:30 AM [facility] REPOSITORY TYPE CODE TESTS RESULT OUT OF RANGE REFERENCE UNITS LAB APTT 23.0-32.4 sec High APTT 57.7 Result Comment: Unfractionated Heparin Therapeutic Ranges: Standard Heparin Nomogram: 53 to 78 seconds (anti-Xa level of 0.3 to 0.7 U/ml) Low Dose/ACS Nomogram: 49 to 67 seconds (anti-Xa level of 0.2 to 0.5 U/ml) Stroke Treatment Nomogram: 49 to 67 seconds (anti-Xa level of 0.2 to 0.5 U/ml) Note: The APTT therapeutic range has been determined for the current lot of laboratory APTT reagent in use throughout the [facility]. Performed By: #### PT, PTT, CBC, RFP #### [facility] [address] [place], [place] [address] CBC Collected: 11/28/2017 Status: F Source: [place] 5:30 AM [facility] REPOSITORY TYPE CODE TESTS RESULT OUT OF REFERENCE UNITS RANGE LAB WBC 3.70-11.00 k/uL WBC 6.74 LAB RBC 3.90-5.20 m/uL Low RBC 3.36 LAB HGB 11.5-15.5 g/dL Low Hemoglobin 10.9 LAB HCT 36.0-46.0 % Low Hematocrit 33.9 LAB MCV 80.0-100.0 fL MCV High 100.9 LAB MCH 26.0-34.0 pG MCH 32.4 LAB MCHC 30.5-36.0 g/dL MCHC 32.2 LAB RDWCV 11.5-15.0 % RDW-CV High 20.3 LAB PLTCT 150-400 k/uL Platelet Count 160 LAB MPV 9.0-12.7 fL MPV 10.6 LAB ABSNUC <0.01 k/uL Absolute nRBC <0.01 Performed By: #### PT, PTT, CBC, RFP #### [facility] [address] [place], [place] [address] RENAL FUNCTION PANEL Collected: 11/28/2017 Status: F Source: [place] 5:30 AM [facility] REPOSITORY TYPE CODE TESTS RESULT OUT OF REFERENCE UNITS RANGE LAB ALB 3.9-4.9 g/dL Low Albumin 3.4 LAB CA 8.5-10.2 mg/dL Calcium, Total 8.7 LAB PHOS 2.7-4.8 mg/dL Phosphorus 3.9 LAB GLU 74-99 mg/dL Glucose High 108 Result Comment: The [place] [employer] (ADA) provides guidance for cutoff values for fasting glucose and random glucose. The ADA defines fasting as no caloric intake for at least 8 hours. Fas ting plasma glucose results between 100 to 125 mg/dL indicate increased risk for diabetes (prediabetes). Fasting plasma glucose results greater than or equal to 126 mg/dL meet the criteria for diagnosis of diabetes. In the absence of unequivocal hyperglycemia, results should be confirmed by repeat testing. In a patient with classic symptoms of hyperglycemia or hyperglycemic crisis, random plasma glucose results greater than or equal to 200 mg/dL meet the criteria for diagnosis of diabetes. Reference: Standards of Medical Care in Diabetes 2016, [place] [employer] Association. Diabetes Care. 2016.39(Suppl 1). LAB BUN 7-21 mg/dL BUN High 40 LAB CRET 0.58-0.96 mg/dL Creatinine High 1.37 LAB NA 136-144 mmol/L Sodium 138 LAB K 3.7-5.1 mmol/L Potassium 3.8 LAB CL 97-105 mmol/L Chloride 98 LAB CO2 22-30 mmol/L CO2 29 LAB AGAP 9-18 mmol/L Anion Gap 11 LAB GFRAA eGFR- Amer. 56 LAB GFRNAA . eGFR-All Other Races 46 Result Comment: eGFR (Estimated GFR) Units of measure: mL/min/1.73 meters squared eGFR is derived from the reexpressed MDRD Study equation using the following parameters: serum creatinine, age, gender and race. The creatinine assay has been calibrated to be traceable to IDMS. An eGFR <60 mL/min/1.73m2 for >3 months is consistent with chronic kidney disease. Refer to KDOQI guidelines for clinical interpretation. In patients with unstable renal function, e.g. those with acute kidney injury, the eGFR may not accurately reflect actual GFR. Performed By: #### PT, PTT, CBC, RFP #### [facility] [address] [place] [id number] CONSULT PROG Observed: 11/27/2017 Status: COMPLETED Source: [place] 4:37 PM [facility] REPOSITORY HNO ID: [id number] Author: Justina Pollard (Pa) Service: Hematology Author Type: Physician Satellite Tv Technician Installer Type: Consult Progress Note Filed: 11/27/2017 4:40 PM Note Text: CONSULT PROGRESS NOTE SERVICE DATE: 11/27/2017 CONSULTING SERVICE: Hematology Subjective INTERVAL HPI: Doing well Underwent scheduled PLEX today Platelet count has normalized Current hospital medications: sodium citrate 4% 3-6 mL catheter lock 3-6 mL INTRALUMINAL APHERESIS PRN lidocaine 5 % 1 Patch (LIDODERM) 1 Patch TRANSDERMAL DAILY lidocaine patch - REMOVE OTHER AT BEDTIME lidocaine - VERIFY PATCH OTHER q 8 H warfarin order for discharge OTHER PRN hyoscyamine sublingual 0.25 mg tab(s) (LEVSIN SL) 0.25 mg SUBLINGUAL TID PRN oxyCODONE IR 5 mg tab(s) (ROXICODONE) 5 mg ORAL/FEEDING TUBE q 4 H PRN biipefuzinTYGOP-jtdfnl-oshgzxpwd 10 mL oral liquid (BMX 1:1:1) 10 mL ORAL q 2 H PRN bivalirudin 250 mg in D5W 250 mL (ANGIOMAX) 0.1 mg/kg/hr INTRAVENOUS CONTINUOUS gabapentin 400 mg cap(s) (NEURONTIN) 400 mg ORAL TID cyclobenzaprine 10 mg tab(s) (FLEXERIL) 10 mg ORAL AT BEDTIME cyclobenzaprine 10 mg tab(s) (FLEXERIL) 10 mg ORAL BID PRN NIFEdipine ER 60 mg tab(S) (PROCARDIA XL) 60 mg ORAL BID predniSONE 40 mg tab(s) (DELTASONE) 40 mg ORAL/FEEDING TUBE DAILY HYDROmorphone 0.3 mg in NaCl 0.9% (DILAUDID) 0.3 mg INTRAVENOUS q 6 H PRN acetaminophen 1,000 mg tab(s) (TYLENOL) 1,000 mg ORAL TID torsemide 20 mg tab(s) (DEMADEX) 20 mg ORAL DAILY 0.9% NaCl 10 mL 10 mL INTRAVENOUS q 12 H 0.9% NaCl 20 mL 20 mL INTRAVENOUS PRN albuterol 2.5 mg /3 mL (0.083 %) 2.5 mg (PROVENTIL) 2.5 mg INHALATION q 4 WEEKS pentamidine 300 mg nebulizer solution (NEBUPENT) 300 mg INHALATION q 4 WEEKS carvedilol 25 mg tab(s) (COREG) 25 mg ORAL/FEEDING TUBE BID w MEALS lidocaine 5 % 1 Patch (LIDODERM) 1 Patch TRANSDERMAL DAILY lidocaine patch - REMOVE OTHER AT BEDTIME lidocaine - VERIFY PATCH OTHER q 8 H polyethylene glycol 3350 17 g packet (MIRALAX, GLYCOLAX) 17 g ORAL/FEEDING TUBE DAILY docusate sodium 100 mg cap(s) (COLACE) 100 mg ORAL BID senna 8.6 mg tab(s) (SENOKOT) 8.6 mg ORAL/FEEDING TUBE BID pantoprazole DR 40 mg tab(s) (PROTONIX) 40 mg ORAL DAILY (6 AM) ondansetron 8 mg tab(s) (ZOFRAN) 8 mg ORAL q 8 H PRN diphenhydrAMINE 50 mg (BENADRYL) 50 mg ORAL/FEEDING TUBE q 6 H PRN hydrocortisone sodium succinate (PF) 100 mg injection (Solu- CORTEF) 100 mg INTRAVENOUS q 4 H PRN diphenhydrAMINE 50 mg injection (BENADRYL) 50 mg INTRAVENOUS q 4 H PRN prochlorperazine 5 mg injection (COMPAZINE) 5 mg INTRAVENOUS q 6 H PRN dextrose 50% in water 25-50 mL syringe 12.5-25 g INTRAVENOUS PRN dextrose 40 % 15 g 15 g ORAL PRN glucagon 1 mg injection (GLUCAGEN) 1 mg SUBCUTANEOUS PRN Objective PHYSICAL EXAM: BP 135/79 Pulse 93 Temp (Src) 97.8 (Oral) Resp 16 Ht 5' 3 (1.60m) Wt 225 lb 8.5 oz (102.3kg) SpO2 93% BMI 39.96 kg/(m2). General: Alert, NAD. 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 Recent admission 10/13/17-10/23/17 for hemoptysis and SOB, requiring intubation, was in MICU for management of DAH. readmitted to MICU again for ?extensive left retroperitoneal hemorrhage?s/p IR guided intervention (initially on 10/23 at [facility] and 10/26 here at [facility]. ? # Antiphospholipid antibody syndrome -recent?home therapy : Prednisone 60 mg ( home dose 5 mg), Cytoxan 75 mg ( home dose 150 mg), pheresis QOW ?-Continue prednisone 40 mg o daily ( SD 11/21) ?-Cytoxan stopped on 11/09 given persistent thrombocytopenia as this might he causing myelosuppression Next PLEX is due on 12/11 -given N plate 2mcg/kg sq x1 on 11/09 , 3 mcg/kg on 11/13, and 4 mcg/kg on 11/17. No further doses planned at this time ?-PLT count has normalized. started on bival with bridging to coumadin. Appreciate vascular medicine assistance ? ?#Extensive left retroperitoneal hemorrhage -likely secondary to anticoagulant -sp IR intevention on 10/23 and 10/26? -Hemoglobin has been stable ? #Abnormal hemolysis labs - with elevated LD, elevated retic, and an undetectable hapto. Hemoglobin has been stable. - ?Direct [place] is negative -ADAMTS 13 activity resulted at 56 % speaking against TTP -Abnormal hemolysis labs likely?related to resolving hematoma. SIGNATURE: Justina Pollard PA-C PATIENT NAME: Paloma Cannon DATE: November 27, 2017 TIME: 4:37 PM PAGER: [phone] CASE MANAGEM Observed: 11/27/2017 Status: COMPLETED Source: [place] 2:23 PM [facility] REPOSITORY HNO ID: [id number] Author: Jacinta Aguilar (Rn) JEFF Olmedo Service: Care Management Author Type: Registered Nurse Type: Care Mgt Progress Note Filed: 11/27/2017 2:24 PM Note Text: CARE MANAGEMENT PROGRESS NOTE SERVICE DATE: 11/27/2017 SERVICE TIME: 2:24 PM LOS: 33 days Needs Prior to Discharge: To Be Determined;Accepting Facility;Bed Availability;Discharge Transportation;Precertification [facility] recommends [facility]. Per AKILAH Gutiérrez, [facility] accepts. Precert started today Per AKILAH gutiérrez, pt must be completely off bival prior to transition to [facility]. Will need precert. Per TEENA Borrero Main [place] [facility] (p) [phone] [id number] unable to accept. Peyman Barker would request pt to receive aphersis in house prior to dc. Primary team informed and will try to accommodate. Per , at dc pt will need apheresis q 2 weeks indefinitely and close daily lab montoring of blood status for possible need for transfusion . Current on , [facility] [address] [facility] Yang MAZA is Elsa Matos (p) - updated on dc plan today. Per bolivar Hunter phone # is [phone] .CM to continue to follow SIGNATURE: Jacinta Olmedo RN PATIENT NAME: Paloma Cannon DATE: November 27, 2017 TIME: 2:23 PM PAGER/CONTACT #: [phone] PROCEDURE Observed: 11/27/2017 Status: COMPLETED Source: [place] 1:36 PM [facility] REPOSITORY HNO ID: [id number] Author: Lisseth Claudio MD Service: Apheresis Author Type: Physician Type: Procedures Filed: 11/27/2017 3:51 PM Note Text: APHERESIS THERAPEUTIC PROCEDURE NOTE SERVICE DATE: 11/27/2017 SERVICE TIME: 1316 TREATMENT #: 91. Pre-treatment labs drawn: No PLAN Next treatment- Will schedule. : 1990 Age: [age] year old Gender: female Patient identification confirmed patient, birthdate and MRN Apheresis Requested By: Hematology Diagnosis: Antiphospholipid antibody syndrome Treatment Procedure: Plasmapheresis Protocol: N/A LABS Recent Labs 11/27/17 0516 11/26/17 0514 WBC 6.06 -- 6.70 HB 11.2* < > 11.3* HCT 35.3* -- 34.9* PLT 165 -- 130* INR 1.5* -- 1.4* APTT 57.2* -- 54.7* BUN -- -- 38* CREAT -- -- 1.34* ALB -- -- 3.3* CA -- -- 8.7 < > = values in this interval not displayed. INTERVAL HISTORY: Patient reports feeling well. No questions at this time. PRE-TREATMENT BP 148/82 Pulse 98 Temp 36.6 ?C (97.9 ?F) (Oral) Resp 18 Ht 160 cm (5' 3) Wt 102.3 kg (225 lb 8.5 oz) SpO2 94% BMI 39.95 kg/m? Treatment performed at: Unit/Bed- H080 015/H080-16 Collection bag identification label confirmed with patient and second staff member . Date: 11/27/2017 Catheter Site Dressing: Dry and intact. Venous access: left red port, venous return: left blue port. Machine primed with 0 ml PRE-MEDICATION diphenhydramine 50mg IV Time:1318 and hydrocortisone 100mg IV Time:1320 TREATMENT PARAMETER DATA Whole blood processed: 7441 ml Volume removed: 4454 ml Volume replaced: Albumin 1000 ml, NSS 500 ml and FFP 2081 ml ACD to patient: 137 ml Calcium gluconate 10%: 30 ml Extra fluids: 0 ml NSS via separate IV. Net fluid balance: + 16 ml POST-TREATMENT Vital signs: BP 121/72 HR 90 RR 18 TEMP 98.2F Labs Drawn: None At completion of treatment: Lumen flushed with 10 ml NSS and Lumen flushed with 3 ml 4% sodium citrate Patient tolerated treatment well without complications: Yes Patient instructed to none. Report given to unit nurse. Patient remains in hospital bed. Treatment Started by Apheresis Nurse: Jenni Luu RN Treatment Completed by Apheresis Nurse: [facility] STAFF PHYSICIAN NOTE OF PERSONAL INVOLVEMENT IN CARE Ms. Cannon tolerated the treatment without any acute events. Her next plasma exchange will be in 2 weeks. Will continue to coordinate with the Hematology and GIM teams. I reviewed the patients labs, medications and allergies prior to proceeding with this therapeutic treatment and discussed the case and parameters with the apheresis nurse. I have reviewed this therapeutic progress note documented by the apheresis nurse. I personally participated in all pertinent aspects and fernandes components of the therapeutic treatment. I was present during the treatment. Signature: Lisseth Claudio MD November 27, 2017 3:50 PM Pager: [phone] CASE MANAGEM Observed: 11/27/2017 Status: COMPLETED Source: [place] 12:42 PM [facility] REPOSITORY HNO ID: [id number] Author: Cherrie Loaiza (Asst) Service: Care Management Author Type: Resource Center Satellite Tv Technician Installer Type: Care Mgt Progress Note Filed: 11/27/2017 12:43 PM Note Text: CARE MANAGEMENT PROGRESS NOTE SERVICE DATE: 11/27/2017 SERVICE TIME: 12:03 LOS: 33 days IM letter given to patient on 11/27/17. SIGNATURE: Asst Xiomara PATIENT NAME: Paloma Cannon DATE: November 27, 2017 TIME: 12:42 PM PAGER/CONTACT #: [phone] PROGRESS Observed: 11/27/2017 Status: COMPLETED Source: [place] 12:31 PM [facility] REPOSITORY HNO ID: [id number] Author: Olga Reyez Service: General Internal Medicine Author Type: Resident Type: Progress Notes Filed: 11/27/2017 12:40 PM Note Text: Attestation signed by Zhou Lang at 11/27/2017 5:[address] [facility] STAFF PHYSICIAN NOTE OF PERSONAL INVOLVEMENT IN CARE I have reviewed the progress note obtained and documented by the resident and I personally participated in the fernandes components. Patient seen and discussed with house staff on rounds. The following comments revise or confirm relevant fernandes components of their note. Briefly, Paloma Cannon is a 27 year old female whose medical history includes catastrophic APS, HIT, and diffuse alveolar hemorrhage while on warfarin, now admitted for large left-sided retroperitoneal hemorrhage. Ms. Cannon had been improving, and bivalrudin and warfarin were begun. Yesterday, she developed new left-sided inspiratory pain below her anterior ribs, along with tachycardia and increased oxygen requirements. Previous imaging disclosed a large IVC thrombus. Ms. Cannon has continued to have scant hemoptysis. Given her pretest probability and new symptoms, we suspect Ms. Cannon's left-sided pleuritic chest pain is due to a new pulmonary embolus. Because definitive diagnosis would not impact treatment, we have elected to spare her the potential iatrogenesis of a contrasted CT scan. The alternate diagnosis of most concern would be DAH; this would potentially explain the increased oxygen requirement, though would not explain other findings. If Ms. Cannon's oxygen requirements should increase, if her hemoptysis were to increase, or if she were to develop dyspnea, we will evaluate further for DAH and contact our MICU. Otherwise, we will continue bivalrudin and warfarin. Detailed plan per house staff note. I remain available for questions/discussion, if helpful. SIGNATURE: Zhou Lang MD PAGER: [phone] DATE of SERVICE: 11/27/2017 TIME of SERVICE: 5:44 PM RAF A PROGRESS NOTE For questions regarding this patient today please page [phone] After 5 pm on weekdays and 3pm on weekends and holidays please page documentation clerk pager [phone] SERVICE DATE: 11/27/2017 SERVICE TIME: 12:32 PM INTERVAL HISTORY: - became tachycardic to 103 and oxygen requirements increased from 3 to 5 L NC. Subjectively not short of breath. Concern for pulmonary embolism (given history for APS, known IVC thrombus, and change in clinical status) v diffuse alveolar hemorrhage (but no bright red blood in sputum) - CT abdomen showed stable size of hematoma - CXR showed non-specific findings at the bases for opacities - increased pain over left lower rib cage that is tender to touch, and pleuritic in nature. - INR 1.5 - platelets improving, Hgb stable. PLAN FOR TODAY - continue bivalirudin + coumadin; day 5 today - monitor for signs of fresh bleeding and new pain (Left RP and abdominal pain) - appreciate VM and heme recs - monitor platelet and Hgb levels - c/w torsemide 20 mg qday; strict I/O - desaturation study required prior to discharge - N-plate this week, per Heme - next apheresis scheduled for today. May affect coumadin levels. - will hold off on imaging studies to assess for PE given that it will not change managements at this time (already on AC) and given recent history of CAPRICE. MEDICATIONS: Current hospital medications: lidocaine 5 % 1 Patch (LIDODERM) 1 Patch TRANSDERMAL DAILY lidocaine patch - REMOVE OTHER AT BEDTIME lidocaine - VERIFY PATCH OTHER q 8 H warfarin order for discharge OTHER PRN hyoscyamine sublingual 0.25 mg tab(s) (LEVSIN SL) 0.25 mg SUBLINGUAL TID PRN oxyCODONE IR 5 mg tab(s) (ROXICODONE) 5 mg ORAL/FEEDING TUBE q 4 H PRN [id number] 10 mL oral liquid (BMX 1:1:1) 10 mL ORAL q 2 H PRN bivalirudin 250 mg in D5W 250 mL (ANGIOMAX) 0.1 mg/kg/hr INTRAVENOUS CONTINUOUS gabapentin 400 mg cap(s) (NEURONTIN) 400 mg ORAL TID cyclobenzaprine 10 mg tab(s) (FLEXERIL) 10 mg ORAL AT BEDTIME cyclobenzaprine 10 mg tab(s) (FLEXERIL) 10 mg ORAL BID PRN NIFEdipine ER 60 mg tab(S) (PROCARDIA XL) 60 mg ORAL BID predniSONE 40 mg tab(s) (DELTASONE) 40 mg ORAL/FEEDING TUBE DAILY HYDROmorphone 0.3 mg in NaCl 0.9% (DILAUDID) 0.3 mg INTRAVENOUS q 6 H PRN acetaminophen 1,000 mg tab(s) (TYLENOL) 1,000 mg ORAL TID torsemide 20 mg tab(s) (DEMADEX) 20 mg ORAL DAILY 0.9% NaCl 10 mL 10 mL INTRAVENOUS q 12 H 0.9% NaCl 20 mL 20 mL INTRAVENOUS PRN albuterol 2.5 mg /3 mL (0.083 %) 2.5 mg (PROVENTIL) 2.5 mg INHALATION q 4 WEEKS pentamidine 300 mg nebulizer solution (NEBUPENT) 300 mg INHALATION q 4 WEEKS carvedilol 25 mg tab(s) (COREG) 25 mg ORAL/FEEDING TUBE BID w MEALS lidocaine 5 % 1 Patch (LIDODERM) 1 Patch TRANSDERMAL DAILY lidocaine patch - REMOVE OTHER AT BEDTIME lidocaine - VERIFY PATCH OTHER q 8 H polyethylene glycol 3350 17 g packet (MIRALAX, GLYCOLAX) 17 g ORAL/FEEDING TUBE DAILY docusate sodium 100 mg cap(s) (COLACE) 100 mg ORAL BID senna 8.6 mg tab(s) (SENOKOT) 8.6 mg ORAL/FEEDING TUBE BID pantoprazole DR 40 mg tab(s) (PROTONIX) 40 mg ORAL DAILY (6 AM) ondansetron 8 mg tab(s) (ZOFRAN) 8 mg ORAL q 8 H PRN diphenhydrAMINE 50 mg (BENADRYL) 50 mg ORAL/FEEDING TUBE q 6 H PRN hydrocortisone sodium succinate (PF) 100 mg injection (Solu- CORTEF) 100 mg INTRAVENOUS q 4 H PRN diphenhydrAMINE 50 mg injection (BENADRYL) 50 mg INTRAVENOUS q 4 H PRN prochlorperazine 5 mg injection (COMPAZINE) 5 mg INTRAVENOUS q 6 H PRN dextrose 50% in water 25-50 mL syringe 12.5-25 g INTRAVENOUS PRN dextrose 40 % 15 g 15 g ORAL PRN glucagon 1 mg injection (GLUCAGEN) 1 mg SUBCUTANEOUS PRN HOME MEDICATIONS: cyclophosphamide (CYTOXAN) 50 mg capsule Take 150 mg by mouth once daily. diphenhydrAMINE (BENADRYL) 50 mg capsule Take 1 capsule by mouth every 6 hours as needed for Itching/Rash. gabapentin (NEURONTIN) 100 mg capsule Take 1 capsule by mouth three times daily for 7 days. ondansetron (ZOFRAN, HYDROCHLORIDE,) 8 mg tablet Take 8 mg by mouth every 8 hours as needed for Nausea/Vomiting. pantoprazole DR (PROTONIX) 40 mg tablet Take 40 mg by mouth daily at bedtime. sulfamethoxazole-trimethoprim (BACTRIM DS) 800-160 mg per tablet Take 1 tablet by mouth every Monday,Monday,Monday. fluticasone (FLONASE) 50 mcg/actuation nasal spray Use 1-2 Sprays in each nostril once daily as needed for Cold/Allergy Symptoms (starting in allergy season). senna 8.6 mg tab Take 1 tablet by mouth twice daily as needed. PHYSICAL EXAM: VITAL SIGNS Patient Vitals for the past 24 hrs: BP Temp Temp src Pulse Resp SpO2 11/27/17 0851 148/82 36.6 ?C (97.9 ?F) Oral 98 18 94 % 11/27/17 0558 142/93 36.5 ?C (97.7 ?F) Oral 95 18 93 % 11/27/17 0143 137/83 36.4 ?C (97.5 ?F) Oral 81 18 90 % 11/26/17 2123 140/77 36.3 ?C (97.4 ?F) Oral 86 18 92 % 11/26/17 2034 142/85 - - 89 - - 11/26/17 1800 115/67 37.2 ?C (99 ?F) Oral 87 18 92 % 11/26/17 1500 - - - - - 95 % 11/26/17 1400 126/77 37.3 ?C (99.1 ?F) Oral 99 18 90 % BP 148/82 Pulse 98 Temp 36.6 ?C (97.9 ?F) (Oral) Resp 18 Ht 160 cm (5' 3) Wt 102.3 kg (225 lb 8.5 oz) SpO2 94% BMI 39.95 kg/m? Temp (24hrs), Av.7 ?C (98.1 ?F), Min:36.3 ?C (97.4 ?F), Max:37.3 ?C (99.1 ?F) INTAKE/OUTPUT Intake/Output Summary (Last 24 hours) at 11/27/17 1232 Last data filed at 11/27/17 1000 Gross per 24 hour Intake 383.2 ml Output 850 ml Net -466.8 ml General: Alert, oriented, cooperative.?In no acute distress. 5L NC Skin:?Chronic skin changes on bilateral LE below the knee?due to lymphedema HEENT: EOM. Pupils equal, round and reactive Cardiovascular: RRR. No murmur Lungs: Minimal crepitations at the bases than prior Abdomen: Soft, TTP in LUQ, no masses or organomegaly Extremities: 2+ peripheral edema but improving,?+2 DP pulses bilaterally Neurological: Moving all extremities freely? LAB DATA: CBC, Coags, BMP, Mg, Phos Recent Labs 11/27/17 0516 11/26/17 1604 11/26/17 1534 11/26/17 0514 11/25/17 0429 WBC 6.06 -- -- -- 6.70 6.14 HB 11.2* 11.1* Unable to assay. Specimen improperly collected/handled. < > 11.3* 10.8* HCT 35.3* -- -- -- 34.9* 33.9* PLT 165 -- -- -- 130* 135* INR 1.5* -- -- -- 1.4* 1.4* APTT 57.2* -- -- -- 54.7* 55.2* NA -- -- -- -- 140 -- K -- -- -- -- 3.9 -- CHLOR -- -- -- -- 100 -- CO2 -- -- -- -- 26 -- BUN -- -- -- -- 38* -- CREAT -- -- -- -- 1.34* -- GLUC -- -- -- -- 75 -- CA -- -- -- -- 8.7 -- P -- -- -- -- 3.9 -- < > = values in this interval not displayed. ASSESSMENT AND PLAN: Active Hospital Problems Diagnosis - Retroperitoneal hematoma Retroperitoneal bleed: s/p 7 units PRBCs s/p IR emobolization of left L3 artery at [facility] on 10/23 IR embolization of left L2 and L3 arteries on 10/26 CT abd/pel 10/31: RP bleed stable when compared to previous imaging from 10/27 LDH 1730, haptoglobin <10, Tbili 1.3- concern for hemolysis as well. 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 Has received stenting of IVC and iliacs along with endograft of IVC. 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 C/B extensive RP bleed s/p L2, L3 embolization. N-plate 11/09, 11/13 Received Apheresis on 11/03, 11/13 (heme following); patient is on [id number] (Mondays), next scheduled for 11/27 11/22: started bivalirudin for bridge to coumadin (on 2.5 alternating w 5 mg coumadin) Plan: Holding Cytoxan 75 mg in setting of worsening thrombocytopenia Continue prednisone 40 mg withpentamidine ppx Appreciate hematology and VM recs c/w with bivalirudin and start coumadin bridge. Bivalirudin and coumadin should overlap for a minimum of 5 days until INR is therapeutic before Bivalirudin can be discontinued - CAPRICE (acute kidney injury) (HCC) CAPRICE on CKD III, 2/2 contrast, improved to S.Cr-1.3 Received IHD during this admission but renal recover and IHD was held Plan: Nephrology following- appreciate recommendations Daily BMPs to watch K, Na and phosphorus levels Renal dosing of medication Avoid excess fluids and nephrotoxic drugs - HTN (hypertension) Mildly decreased systolic function, diastolic function indeterminate on 10/13/17 ECHO. 10/28: Run of SBP in 200s overnight (likely d/t pain), given hydralazine however still consistently in 170s-180s 10/29: Still hypertensive, required 4 doses of hydralazine overnight Switched Amlodipine 10 mg to nifedipine 30mg on 11/10, and increased Coreg from 6.25 to 25 mg BID Plan: Nifedipine 60 mg BID and keeping Coreg 25 mg at current dosing Can consider adding PRN hydralazine for SBP>180 mm Hg, Also on torsemide for volume - Diffuse pulmonary alveolar hemorrhage Currently stable, no new episodes Has had 6 admissions recently for acute respiratory failure requiring mechanical ventilation Cytoxan was reduced from 150 to 75 mg due to concern for BM toxicity; renally dosed Decreased prednisone from 60 to 40 mg Plan: Continue to monitor respiratory status Continue oxygen therapy at 5L NC (will titrate as possible) Holding Cytoxan in setting of worsening thrombocytopenia Continue Prednisone 40 mg daily Switched bactrim to pentamidine for ppx on 11/12 Will reach out to outpatient provider regarding switch to pentamidine from bactrim, per heme recs - Moraxella catarrhalis pneumonia (HCC) Had respiratory cultures growing Moraxella catarrhalis Received ceftriaxone 10/27-11/03- 7 days therapy WBC trended down from 21 K to 12K. Currently at baseline O2 requirement but still slightly tachypneic Completed course of ceftriaxone. Plan: Continue to monitor respiratory status closely BPH per RT Incentive spirometry - Peripheral neuropathy - History of heparin-induced thrombocytopenia Avoid all heparin products. Bridging to coumadin w bivalirudin VM following and recs appreciated - History of HIT (heparin-induced thrombocytopenia) ([facility]) Plan: - Avoid heparin products - Anticoagulation management encounter - Weakness of left leg 11/02 Left leg weakness/parasthesia Likely related to lumbar nerve compression from large retroperitoneal hematoma Neurology was following, recommended no further intervention On gabapentin renally dosed. - Left groin pain 10/27: C/o acute painin morning, access site for embolization at [facility], no erythema or induration appreciated on exam, exquisitely TTP Groin study showed no signs of PSA, known AV fistula visualized with retrograde flow, vascular med aware- no further recs 10/28: pain less severe, no physical exam findings Repeat Leg DVT shows no pseudoaneurysm Likely due to nerve compression/RP hematoma causing compressive symtpoms S/p R groin drain placed at [facility] on 10/24 s/p L groin drain placed at [facility] during embolization on 10/26 Plan: - repeat image showed decreased size - will continue to monitor symptoms and HANDH w low threshold for imaging MAINTENANCE: VTE PROPHYLAXIS:?bivalirudin + coumadin (day 5) NEED FOR ZUNIGA- Removed 11/14/17 LINES: Double lumen dialysis catheter 10/25/17 Dispo-?Acute rehabilitation center This note is not final until staffed by the attending physician and authenticated by responsible provider. SIGNATURE: Olga Reyez MD PATIENT NAME: Paloma Cannon DATE: November 27, 2017 TIME: 12:32 PM PAGER: [phone] THERAPY NT Observed: 11/27/2017 Status: COMPLETED Source: [place] 10:41 AM [facility] REPOSITORY O ID: [id number] Author: Tamiko (Pt) Adelaida Service: Physical Therapy Author Type: Physical Therapist Type: Therapy (PT/OT/Speech/Resp) Filed: 11/27/2017 10:46 AM Note Text: Physical Therapy Wound/Lymph Treatment SERVICE DATE: 11/27/2017 SERVICE TIME: 0949 to 1015 ROOM: [place] [address] Disposition: Acute Rehab Recommended Discharge Disposition Comments: will require further assessment Anticipated Discharge Needs: Undetermined PT Recommendations to Nursing: With assist of 1 person;Transfer to/from chair;OOB for Meals 6 Clicks Score: 14 Skin Condition: BLE lymphedema Frequency of Dressing Change:Daily?- compression wraps to be worn during the day hours ?Physical Therapy to Perform Dressing Change: 4x/week to be coordinated with nursing ?Nursing to Perform Dressing Change:1x/day Monday and Monday Dressing/Treatment Type: See Clinical Documentation report for specific dressing information. ASSESSMENT : Pt continues to tolerate compression for up to 8-12 hours daily and circumferential measurements have slightly increased over the weekend. This may be due to lack of consistency with compression wrapping over the weekend, including patient not wearing the compression for 8-12 hours. Will consider adding compression above the knee next week on a trial basis and monitor for changes. Deferred adding compression above the knee today due to the increase in distal edema noted. Pt is physically unable to perform compression wrapping therefore will need to perform training with a family member. ?Plan to continue with current POC at this time. Patient Disposition at Start of Session: Supine in Bed;Chair Alarm Patient Disposition at End of Session: Supine in Bed;Chair Alarm;Call Wagoner in Reach Tolerated Full Session Fatigue;Pain Physical Therapy Problem List: Cognitive Deficit;Education Deficit;Decreased Activity Tolerance;Decreased Strength;Functional Mobility Impairment Patient /Caregiver Goals: Unique to general PT Goals for Plan of Care: 1. ?Decongestion of BLE?with girth measurements decreased by 2-4?cm per segment to increase level of independence with functional mobility and ADL's, decrease pain, decrease recurrence of infection, improved range of motion and allow appropriate fit in compressive garment. ?? 2. ??Pt and/or caregiver will demonstrate compliance in knowledge of lymphedema precautions including meticulous skin and nail care to reduce risk of infection and further exacerbation. 3. ??Pt and/or caregiver will demonstrate the correct method of Lymphatic Bandaging/compression technique and independent understanding of the principles and theory of compression 4. ??Pt and/or caregiver will be independent in their exercise program to enchance Lymphatic flow and decongestion of the affected body parts 5. Patient/ Caregiver will be able to demonstrate competence with offloading recommendations and pressure relieving strategies 6. Patient/ Caregiver will be able to state the signs and symptoms of infection Progress Toward Goals: Progressing as expected Due To: medical status Rehab Potential: Fair PLAN: Treatment Frequency (times per week): 4 Current admission Treatment Interventions: Education;Self Care / Home Management;Joint Mobility;Strengthening;Functional Mobility Training;Balance Training;Edema Management;Pain Management Plan of Care developed with: Patient TREATMENT INTERVENTIONS: Interventions Provided: Manual Therapy (17870) Manual Therapy (93873) Treatment Minutes: 25 2 units Skilled Intervention: Manual skills to improve joint mobility, range of motion, and decrease pain. Educated patient on the following aspect of Complete Decongestive Therapy (CDT): 1.??Compressive Therapy: Discussed rationale for compression garment and bandaging Instructed in proper technique for compression wrapping Skilled interventions: - Increase lymaphtic fluid dynamics - Increase skin extensibility - Utilized anatomy knowledge of the therapist, and assessment of patient's response to intervention. ? Manual Compression performed: 1. ?Skin inspected and?cleansed thoroughly 2. ?Applied lotion?to BLE? 3. ?Applied 1 surgigrip?+ 1 ABD pad at the foot/ ankle + 1?surepress wraps applied at 50% tension?with a 50% overlap (deferred ankle padding today). ? Spoke at length with pt re: when to loosen or remove the bandages (i.e.: in the event that pain becomes a limiting factor or pt experienced new onset SOB or worsening of respiratory status). Pt verbalized understanding. ? Education: 1. ?Discussed with patient and nursing the risks and benefits of compression therapy and how compression is indicated in this case. 2. ?Reviewed?proper technique for compression wrapping.? Total Timed Code Treatment Minutes: 25 Total Treatment Time (minutes): 25 SUBJECTIVE: Current Hospital Course: Chart reviewed and no significant medical updates relevant to therapy were noted Patient Report: Pt c/o new rib pain today (medical team aware). 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 Entry To Home: No Stairs Number Of Stairs To Bed/Bath: 0 Tub/Shower Type: walk in shower Equipment Owned: Commode-Raised;Grab Bars-Shower;Grab Bars-Toilet;Shower Chair;Home Oxygen Prior Functional Level: Required Assistance Assistance Required With: Cleaning;Laundry;Meals;Shopping;Transportation Prior Wound Care: Other: See Comment (unable to don compression stockings (I)) OBJECTIVE: Location Date: 11/27/17 Right Left Metatarsal Heads 23.25cm 23.75cm Ankle ([place]) 24.25cm 24cm 10cm above malleoli 29.5cm 27.75cm 20cm above malleoli 44cm 41.5cm 30cm above malleoli 50.5cm 44.5cm Location ?Date: ? 11/17/17 ?Date: ? 11/22/17 Date: 11/23/17 Right Left Right Left Right Left Metatarsal Heads 25.5cm 24cm 24cm 23cm 23.5cm 22cm Ankle ([place]) 24.5cm 24.5cm 21cm 22.25cm 24cm 24cm 10cm above malleoli 28.5cm 28.25cm 24cm 23cm 28cm 27cm 20cm above malleoli 44cm 40.5cm 36.5cm 34.5cm 43.5cm 39.5cm 30cm above malleoli 49cm 44.5cm 47cm 44cm 45cm 45.5cm ? Location Evaluation Date: ? 08/01/17 Date: ? 11/03/17 Date: 11/16/17 Right Left Right Left Right Left Metatarsal Heads 24cm 22.5cm 24cm 24cm 24cm 24.5cm Ankle ([place]) 23.25cm 22.5cm 24cm 25cm 24.5cm 25cm 10cm above malleoli 28.5cm 28cm 30cm 27.5cm 31cm 29.5cm 20cm above malleoli 42cm 43.25cm 42cm 40cm 46cm 42cm 30cm above malleoli 45.5cm 41.5cm 46cm 47cm 46cm 44.5cm LLE Circumferential Measurements: Metatarsal Heads;Ankle;10 cm;20 cm;30 cm Left Metatarsal Heads: 23.75cm Left Ankle: 24cm Left Lower Extremity 10cm: 27.75cm Left Lower Extremity 20cm: 41.5cm Left Lower Extremity 30cm: 44.5cm RLE Circumferential Measurements: Metatarsal Heads;Ankle;10 cm;20 cm;30 cm Right Metatarsal Heads: 23.25cm Right Ankle: 24.25cm Right Lower Extremity 10cm: 29.5cm Right Lower Extremity 20cm: 44cm Right Lower Extremity 30cm: 50.5cm Sensation Sensation: Right Lower Extremity;Left Lower Extremity Right Lower Extremity Sensation: Light Touch RLE Light Touch: Intact Left Lower Extremity Sensation: Light Touch LLE Light Touch: Intact Circulation Pulses: Right Dorsalis Pedis;Left Dorsalis Pedis Right Dorsalis Pedis Pulse: (unable to palpate due to lymphedema; present via doppler) Left Dorsalis Pedis Pulse: (unable to palpate due to lymphedema; present via doppler) Capillary Refill: Right Lower Extremity;Left Lower Extremity Right Lower Extremity Capillary Refill: Intact Left Lower Extremity Capillary Refill: Intact See Clinical Documentation report for Skin Documentation. Current Functional Mobility Assist Level Additional Information Rolling Contact Guard Assistance Supine to Sit Contact Guard Assistance Sit to Supine Moderate Assistance (BLE) Scooting Contact Guard Assistance Sit to Stand Minimal Assistance Stand to Sit Minimal Assistance Bed to Chair Minimal Assistance Toilet/Commode Minimal Assistance Gait Minimal Assistance Gait Device: Wheeled Walker Gait Distance (feet): 4' x 2 General Gait Deviations: Delmy decreased;Step length decreased;Wide base of support Balance: Static Sitting;Dynamic Sitting;Static Standing;Dynamic Standing Static Sitting Balance: Stand By Assistance Dynamic Sitting Balance: Contact Guard Assistance Static Standing Balance: Minimal Assistance Dynamic Standing Balance: Minimal Assistance Please see discipline specific clinical documentation flowsheet for complete details for this therapy evaluation/treatment. SIGNATURE: Tamiko Son PT PATIENT NAME: Paloma Cannon DATE: November 27, 2017 TIME: 10:41 AM PAGER/CONTACT #: [phone] CONSULT PROG Observed: 11/27/2017 Status: COMPLETED Source: [place] 10:33 AM [facility] REPOSITORY HNO ID: [id number] Author: Magdalena (Cinder Crane Operator) Chano Molina Service: Vascular Medicine Author Type: Nurse Practitioner Type: Consult Progress Note Filed: 11/27/2017 12:47 PM Note Text: VASCMED CONSULT PROGRESS NOTE Subjective Follow Up Regarding: APS, remote hx of HIT INTERVAL HPI and PERTINENT ROS: Day 5 of coumadin, INR 1.5 Having LL anterior chest discomfort, abdominal CT shows hematoma is unchanged. Per patient, primary team feels that it may be a PE Patient currently requiring 5 LNC Denies any outward signs of bleeding or hemoptysis platelets 165k hgb 11.2 aPTT 57.2 Next planned date for apheresis is Monday>>patient questioning if okay to have apheresis if there is concern for PE Current Facility-Administered Medications: lidocaine 5 % 1 Patch (LIDODERM) 1 Patch TRANSDERMAL DAILY warfarin order for discharge OTHER PRN hyoscyamine sublingual 0.25 mg tab(s) (LEVSIN SL) 0.25 mg SUBLINGUAL TID PRN oxyCODONE IR 5 mg tab(s) (ROXICODONE) 5 mg ORAL/FEEDING TUBE q 4 H PRN [id number] 10 mL oral liquid (BMX 1:1:1) 10 mL ORAL q 2 H PRN bivalirudin 250 mg in D5W 250 mL (ANGIOMAX) 0.1 mg/kg/hr INTRAVENOUS CONTINUOUS gabapentin 400 mg cap(s) (NEURONTIN) 400 mg ORAL TID cyclobenzaprine 10 mg tab(s) (FLEXERIL) 10 mg ORAL AT BEDTIME cyclobenzaprine 10 mg tab(s) (FLEXERIL) 10 mg ORAL BID PRN NIFEdipine ER 60 mg tab(S) (PROCARDIA XL) 60 mg ORAL BID predniSONE 40 mg tab(s) (DELTASONE) 40 mg ORAL/FEEDING TUBE DAILY HYDROmorphone 0.3 mg in NaCl 0.9% (DILAUDID) 0.3 mg INTRAVENOUS q 6 H PRN acetaminophen 1,000 mg tab(s) (TYLENOL) 1,000 mg ORAL TID torsemide 20 mg tab(s) (DEMADEX) 20 mg ORAL DAILY 0.9% NaCl 10 mL 10 mL INTRAVENOUS q 12 H 0.9% NaCl 20 mL 20 mL INTRAVENOUS PRN albuterol 2.5 mg /3 mL (0.083 %) 2.5 mg (PROVENTIL) 2.5 mg INHALATION q 4 WEEKS And pentamidine 300 mg nebulizer solution (NEBUPENT) 300 mg INHALATION q 4 WEEKS carvedilol 25 mg tab(s) (COREG) 25 mg ORAL/FEEDING TUBE BID w MEALS lidocaine 5 % 1 Patch (LIDODERM) 1 Patch TRANSDERMAL DAILY And lidocaine patch - REMOVE OTHER AT BEDTIME And lidocaine - VERIFY PATCH OTHER q 8 H polyethylene glycol 3350 17 g packet (MIRALAX, GLYCOLAX) 17 g ORAL/FEEDING TUBE DAILY docusate sodium 100 mg cap(s) (COLACE) 100 mg ORAL BID senna 8.6 mg tab(s) (SENOKOT) 8.6 mg ORAL/FEEDING TUBE BID pantoprazole DR 40 mg tab(s) (PROTONIX) 40 mg ORAL DAILY (6 AM) ondansetron 8 mg tab(s) (ZOFRAN) 8 mg ORAL q 8 H PRN diphenhydrAMINE 50 mg (BENADRYL) 50 mg ORAL/FEEDING TUBE q 6 H PRN hydrocortisone sodium succinate (PF) 100 mg injection (Solu- CORTEF) 100 mg INTRAVENOUS q 4 H PRN diphenhydrAMINE 50 mg injection (BENADRYL) 50 mg INTRAVENOUS q 4 H PRN prochlorperazine 5 mg injection (COMPAZINE) 5 mg INTRAVENOUS q 6 H PRN dextrose 50% in water 25-50 mL syringe 12.5-25 g INTRAVENOUS PRN dextrose 40 % 15 g 15 g ORAL PRN glucagon 1 mg injection (GLUCAGEN) 1 mg SUBCUTANEOUS PRN Objective PHYSICAL EXAM: BP 148/82 Pulse 98 Temp 36.6 ?C (97.9 ?F) (Oral) Resp 18 Ht 160 cm (5' 3) Wt 102.3 kg (225 lb 8.5 oz) SpO2 94% BMI 39.95 kg/m? General: alert and oriented x3, lying in bed in NAD Cardiac: RRR, normal S1S2 Respiratory: clear B/L, on 5LNC Abdominal/GI: soft, non-tender Extremity: mild edema, chronic skin changes, compression wraps were reapplied Skin: warm, dry Pulse/vascular exam: B/L + 2 rad/pt DATA: Diagnostic tests reviewed for today's visit: Most recent labs and imaging results. Most recent labs CBC, Coags, BMP, Mg, Phos Recent Labs 11/27/17 0516 11/26/17 1604 11/26/17 1534 11/26/17 0514 11/25/17 0429 WBC 6.06 -- -- -- 6.70 6.14 HB 11.2* 11.1* Unable to assay. Specimen improperly collected/handled. < > 11.3* 10.8* HCT 35.3* -- -- -- 34.9* 33.9* PLT 165 -- -- -- 130* 135* INR 1.5* -- -- -- 1.4* 1.4* APTT 57.2* -- -- -- 54.7* 55.2* NA -- -- -- -- 140 -- K -- -- -- -- 3.9 -- CHLOR -- -- -- -- 100 -- CO2 -- -- -- -- 26 -- BUN -- -- -- -- 38* -- CREAT -- -- -- -- 1.34* -- GLUC -- -- -- -- 75 -- CA -- -- -- -- 8.7 -- P -- -- -- -- 3.9 -- < > = values in this interval not displayed. 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 Hospital course further c/b severe thrombocytopenia and CAPRICE requiring dialysis. AC was held x 4 weeks, now resumed yesterday. Hematology following , patient has received apheresis, Nplate and cytoxan currently being held. She is currently on bival to coumadin bridge. Renal function has recovered. She is currently on bival to coumadin bridge. Hemoglobin stable and platelets continue to uptrend with no clinical signs of bleeding. She is planned for apheresis on Monday. Now w/ new c/o's LUQ pain, abdominal CT scan prelim report, shows interval decrease in size of hematoma Estimated Creatinine Clearance: 71.4 mL/min (A) (based on SCr of 1.34 mg/dL (H)). -Spoke with Dr. Rodriguez regarding concerns for PE given patient's location of pain and increasing oxygen requirements. Patient had long interruption in AC and likely could have developed PE. Would not recommend imaging as it would not change advisor. Okay from VM standpoint to proceed w/ apheresis if it is needed. INR/aPTT will likely normalize (it has previously), but bival will become therapeutic within one hour after apheresis is completed. Plan discussed with Dr. Rodriguez: Day 5 of coumadin, INR 1.5 (2.0-3.0) Will give another 5mg of coumadin aPTT 57.2 (46-65) therapeutic, continue with 0.1mg/kg/hr and repeat aPTT tomorrow morning. Please call [facility] [phone] if not within therapeutic range Bival and Coumadin should overlap for a minimum of 5 days and until INR is therapeutic before Bival can be discontinued. INR will likely normalize after scheduled apheresis session on Monday aPTTs, CBC/INR daily in house Duration of treatment: fpc Upon discharge, INR management to be resumed by Vascular Medicine SIGNATURE: Magdalena Lewis APRN.CNP PATIENT NAME: Paloma Cannon DATE: November 27, 2017 TIME: 10:33 AM PAGER/CONTACT #: [phone] . THERAPY NT Observed: 11/27/2017 Status: COMPLETED Source: [place] 9:59 AM [facility] REPOSITORY HNO ID: [id number] Author: Indra Macias) [facility] Service: Physical Therapy Author Type: Ancillary Specialist Type: Therapy (PT/OT/Speech/Resp) Filed: 11/27/2017 10:06 AM Note Text: Attestation signed by Brenda Meraz at 11/27/2017 12:53 PM I reviewed and agree with the assessment as documented above. SIGNATURE: Brenda Meraz, PT DATE: November 27, 2017 TIME: 12:52 PM Physical Therapy Treatment SERVICE DATE: 11/27/2017 SERVICE TIME: 904 to 950 ROOM: [place] [address] Recommended Discharge Disposition: Acute Rehab Justification For Post Acute Needs: Anticipate that patient will require daily (5x/wk) skilled therapy in a post-acute facility setting at the time of acute hospital discharge;Willing to participate;Motivated;Anticipate patient will tolerate 3 hours of daily therapy at the time of admission to post-acute setting;Good family support Anticipated Discharge Needs: Undetermined PT Recommendations to Nursing: With assist of 1 person;Transfer to/from chair;OOB for Meals PT 6 Clicks Score: 16 Precautions/Activity Restrictions: Fall Risk;Lines/Tubes/Drains ASSESSMENT : Patient able to transfer to/from WC with walker with assist of 1 with cues for foot placement, balance, trunk alignment and forward gaze. Patient unable to ambulate due to increased fatigue and pain. Monitoring patient's oxygen on 5 liters desat to 84% with transfer improved to 94% with cues for breathing and rest. Continue to recommend AR upon d/c. Patient Disposition at Start of Session: Supine in Bed Patient Disposition at End of Session: Supine in Bed (another service in room) Tolerance Limited By Fatigue;Pain Physical Therapy Problem List: Cognitive Deficit;Education Deficit;Decreased Activity Tolerance;Decreased Strength;Functional Mobility Impairment Patient /Caregiver Goals: Go Home Goals for Plan of Care: Rolling with: Independent Transfer supine to/from sit with: Independent Transfer sit to/from stand with: Contact Guard Assistance Ambulate with: Contact Guard Assistance Distance: 10 Device: Wheeled Walker Progress Toward Goals: Progressing slower than expected Due To: medical acuity Rehab Potential: Good PLAN: Treatment Frequency (times per week): 3 (1-2PRN) Treatment Duration (number): 2 Weeks Treatment Interventions: Education;Energy Conservation Training;Strengthening;Functional Mobility Training;Balance Training Plan of Care developed with: Patient TREATMENT INTERVENTIONS: Therapy Diagnosis: Reduced mobility-other Interventions Provided: Therapeutic Activity (10153);Therapeutic Exercise (11274) Therapeutic Exercise (29577) Treatment Minutes: 15 1 unit Skilled Intervention(s): Patient instructed in and performed supine exercises for 10- 15 rep: AP, heelslides, hip abduction, Seated- AP, LAQ with minimal tactile and verbal cues. Patient required extra rest breaks due to fatigue and pain. Educated patient in reasoning for each exercise. Therapeutic Activity (19576) Treatment Minutes: 25 2 units Skilled Intervention(s): Instructed patient in log roll technique Instructed patient in supine to sit pushing with upper extremities to sit up Instructed and assisted patient in sit to supine using safe, effective technique- assist for BLE Instruction in sit to stand technique with proper hand placement and body positioning at edge of bed/chair Instruction in stand to sit technique with lower extremities touching chair/bed and reaching back for surface Education with importance of functional mobility. Transfer training from bed to WC; WC to bed?with walker with cues for walker management, balance, foot placement, trunk alignment and body positioning. Static standing for hygiene ( 2 mins) with CGA with cues for knee extension, forward gaze, trunk alignment and balance Total Timed Code Treatment Minutes: 40 Total Treatment Time (minutes): 46 FUNCTIONAL G CODE: PT 6 Clicks Score: 16 (11/27/17 0905) Mobility: Walking and Moving Around Current Status (G8978): CL (11/02/17 1015) Mobility: Walking and Moving Around Goal Status (G8979): CK (11/02/17 1015) Based on clinical assessment and the score on the 6 Clicks Functional Assessment Tool, the G code and corresponding severity modifiers are documented above. SUBJECTIVE: Current Hospital Course: Chart reviewed and no significant medical updates relevant to therapy were noted Patient Report: You've pooped me out. 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 Entry To Home: No Stairs Number Of Stairs To Bed/Bath: 0 Tub/Shower Type: walk in shower Equipment Owned: Commode-Raised;Grab Bars-Shower;Grab Bars-Toilet;Shower Chair;Home Oxygen Prior Functional Level: Required Assistance Assistance Required With: Cleaning;Laundry;Meals;Shopping;Transportation Prior Wound Care: Other: See Comment (unable to don compression stockings (I)) OBJECTIVE: CURRENT FUNCTIONAL STATUS: Current Functional Mobility Assist Level Additional Information Rolling Contact Guard Assistance Supine to Sit Contact Guard Assistance Sit to Supine Moderate Assistance (BLE) Scooting Contact Guard Assistance Sit to Stand Minimal Assistance Stand to Sit Minimal Assistance Bed to Chair Minimal Assistance Toilet/Commode Minimal Assistance Gait Minimal Assistance Gait Device: Wheeled Walker Gait Distance (feet): 4' x 2 Stairs Curb Step Car Transfer General Gait Deviations: Delmy decreased;Step length decreased;Wide base of support Balance: Static Sitting;Dynamic Sitting;Static Standing;Dynamic Standing Static Sitting Balance: Stand By Assistance Dynamic Sitting Balance: Contact Guard Assistance Static Standing Balance: Minimal Assistance Dynamic Standing Balance: Minimal Assistance Please see discipline specific clinical documentation flowsheet for complete details for this therapy evaluation/treatment. SIGNATURE: Indra Woods PTA PATIENT NAME: Paloma Cnanon DATE: November 27, 2017 TIME: 9:59 AM PAGER/CONTACT #: [phone] URINALYSIS WITH Collected: 11/27/2017 Status: F Source: [facility] 9:39 AM [facility] REPOSITORY TYPE CODE TESTS RESULT OUT OF RANGE REFERENCE UNITS LAB UCOL Yellow Color Yellow LAB [facility] Clear Clarity Abnormal Cloudy Alert LAB UGLUC Negative mg/dL Glucose, Urine Negative LAB UBIL Negative Bilirubin, Urine Negative LAB UKET Negative Ketones, Urine Negative LAB USPG 1.005-1.030 Specific [place], Ur 1.018 LAB UHGB Negative Abnormal Hemoglobin/Blood, 1+ Alert Ur LAB UPH 4.5-8.0 pH 5.0 LAB UPROT Negative mg/dL Protein, Abnormal Urine 100 Alert LAB UUROB Normal Urobilinogen Normal LAB UNITR Negative Nitrites Negative LAB ULKEST Negative Leukest Negative LAB UCOM Comments SEE COMMENT Result Comment: N/A LAB UMCOM Urine SEE Radha Comment COMMENT Result Comment: N/A LAB UWBC 0-5 /HPF WBC 0-5 LAB URBC 0-3 /HPF Abnormal Alert RBC 6-10 LAB UCAST 0 /LPF Abnormal Alert Cast SEE COMMENT Result Comment: 1-3 Hyaline Cast LAB UEPI /HPF Epithelial SEE Cells COMMENT Result Comment: Few Squamous Epithelial Cells Performed By: #### UAWMIC #### [facility] [address] [place], [place] [address] XR CHEST 1V FRONTAL Observed: 11/27/2017 Status: F Source: [facility] 7:52 AM [facility] REPOSITORY * * *Final Report* * * DATE OF EXAM: Nov 27 2017 7:52AM [facility] [id number] - XR CHEST 1V FRONTAL PORT / PROCEDURE REASON: SOB, volume overload, heart failure suspected * * * * Physician Interpretation * * * * EXAMINATION: CHEST RADIOGRAPH (PORTABLE SINGLE VIEW AP) Exam Date/Time: 11/27/2017 7:52 AM Indication: SOB, volume overload, heart failure suspected MQ: XCPMC_5 Comparison: 1 day prior RESULT: See impression. IMPRESSION: Lines, tubes, and devices: Stable left-sided central venous catheters. Lungs and pleura: Bilateral perihilar reticular and hazy alveolar opacities in both lungs are stable or mildly worse, most suggestive of pulmonary edema or infection. No pleural effusion or pneumothorax. Cardiomediastinal silhouette: Stable cardiomediastinal silhouette. Other: . Practice Support Specialist: PSCB Transcribe Date/Time: Nov 27 2017 10:03A Dictated by : STELLA COSME MD This examination was interpreted and the report reviewed and electronically signed by: STELLA COSME MD on Nov 27 2017 10:04AM EST [id number] CBC Collected: 11/27/2017 Status: F Source: [place] 5:16 AM [facility] REPOSITORY TYPE CODE TESTS RESULT OUT OF REFERENCE UNITS RANGE LAB WBC 3.70-11.00 k/uL WBC 6.06 LAB RBC 3.90-5.20 m/uL Low RBC 3.50 LAB HGB 11.5-15.5 g/dL Low Hemoglobin 11.2 LAB HCT 36.0-46.0 % Low Hematocrit 35.3 LAB MCV 80.0-100.0 fL MCV High 100.9 LAB MCH 26.0-34.0 pG MCH 32.0 LAB MCHC 30.5-36.0 g/dL MCHC 31.7 LAB RDWCV 11.5-15.0 % RDW-CV High 20.9 LAB PLTCT 150-400 k/uL Platelet Count 165 LAB MPV 9.0-12.7 fL MPV 11.6 LAB ABSNUC <0.01 k/uL Absolute nRBC <0.01 Performed By: #### CBC, PT, PTT #### [facility] [address] [place], [place] [address] PROTIME Collected: 11/27/2017 Status: F Source: [place] 5:16 AM [facility] REPOSITORY TYPE CODE TESTS RESULT OUT OF RANGE REFERENCE UNITS LAB PSEC 9.7-13.0 sec High PT Sec 14.9 LAB INR 0.9-1.3 High PT INR 1.5 Result Comment: Vitamin K Antagonist (VKA) Therapeutic Range: INR 2 to 3 (Target INR of 2.5) Note: For patients treated with VKA drugs, such as warfarin, the [place] 2012 Guideline recommends a therapeutic INR range of 2 to 3 (target INR of 2.5). This recommendation includes high-risk patients with antiphospholipid syndrome with previous arterial or venous thromboembolism, current-generation mechanical or bioprosthetic aortic heart valve replacement. Note: Patients with mechanical aortic valve replacement and additional risk factors for thromboembolic events (atrial fibrillation, previous thromboembolism, LV dysfunction, hypercoagulable conditions) or an older generation mechanical AVR (i.e., ball in-Cage) or any mechanical MVR should have a INR therapeutic range of 2.5 to 3.5 (target INR of 3). Michael GH, et al. Chest 2012, 141:7S-47S Diogenes RA, et al. [facility] 2017, 70: 252-289 Performed By: #### CBC, PT, PTT #### [facility] [address] [place], [place] [address] APTT Collected: 11/27/2017 Status: F Source: [place] 5:16 AM [facility] REPOSITORY TYPE CODE TESTS RESULT OUT OF RANGE REFERENCE UNITS LAB APTT 23.0-32.4 sec High APTT 57.2 Result Comment: Unfractionated Heparin Therapeutic Ranges: Standard Heparin Nomogram: 53 to 78 seconds (anti-Xa level of 0.3 to 0.7 U/ml) Low Dose/ACS Nomogram: 49 to 67 seconds (anti-Xa level of 0.2 to 0.5 U/ml) Stroke Treatment Nomogram: 49 to 67 seconds (anti-Xa level of 0.2 to 0.5 U/ml) Note: The APTT therapeutic range has been determined for the current lot of laboratory APTT reagent in use throughout the [facility]. Performed By: #### CBC, PT, PTT #### [facility] [address] [place], [place] [address] TYPE AND SCREEN Collected: 11/27/2017 Status: F Source: [place] 5:16 AM [facility] REPOSITORY TYPE CODE TESTS RESULT OUT OF REFERENCE UNITS RANGE LAB %ABR B ABO/RH(D) POSITIVE LAB % Antibody POS Screen Performed By: #### TSCR #### [address] [address] LACTATE Collected: 11/26/2017 Status: F Source: [place] 10:52 PM [facility] REPOSITORY TYPE CODE TESTS RESULT OUT OF REFERENCE UNITS RANGE LAB LACT 0.5-2.2 mmol/L Lactate 1.6 Performed By: #### LACT #### [address] [address] Observed: 11/26/2017 Status: F Source: [place] BLOOD CULTURE 9:13 PM [facility] REPOSITORY Culture Result - No growth 5 days Performed By: #### BLCUL #### [address] [address] LACTATE Collected: 11/26/2017 Status: F Source: [place] 7:26 PM [facility] REPOSITORY TYPE CODE TESTS RESULT OUT OF REFERENCE UNITS RANGE LAB LACT 0.5-2.2 mmol/L Unable Lactate to assay. Specimen improperly collected/handle d. Result Comment: Specimen collected in wrong container type. TEST REQUIRES A MARCUS TUBE. SPECIMEN WAS RECEIVED IN A GREEN SODIUM HEPARIN TUBE. NOTIFIED JEFF BAZZI OF THE NEED FOR A NEW ORDER AND RECOLLECTION. K [id number] Account Credited Performed By: #### LACT #### [facility] [address] [place], [place] [address] XR CHEST 1V FRONTAL Observed: 11/26/2017 Status: F Source: [place] 6:13 PM [facility] REPOSITORY * * *Final Report* * * DATE OF EXAM: Nov 26 2017 6:13PM [facility] [id number] - XR CHEST 1V FRONTAL / PROCEDURE REASON: Shortness of breath * * * * Physician Interpretation * * * * EXAMINATION: CHEST RADIOGRAPH (PORTABLE SINGLE VIEW AP) Exam Date/Time: 11/26/2017 6:13 PM Indication: Shortness of breath M: XCP_4 Comparison: 11/19/2017 RESULT: See impression. IMPRESSION: Lines, tubes, and devices: Left internal jugular central venous catheters terminate at or below superior cavoatrial junction level. Slightly rotated to the right. Lungs and pleura: Stable to slightly decreased lung volume. Stable to slightly progressive opacities including subtle opacities corresponding with groundglass opacities on the abdominal CT obtained earlier same day, nonspecific for edema, hemorrhage, ARDS, atypical infection/inflammation. Cardiomediastinal silhouette: Stable prominent/mildly enlarged cardiomediastinal silhouette. Other: Practice Support Specialist: PSCB Transcribe Date/Time: Nov 26 2017 6:31P Dictated by : CARLA TORRES MD This examination was interpreted and the report reviewed and electronically signed by: CARLA TORRES MD on Nov 26 2017 6:33PM EST [id number] SEPSIS LACTATE Collected: 11/26/2017 Status: F Source: [place] 4:10 PM [facility] REPOSITORY TYPE CODE TESTS RESULT OUT OF REFERENCE UNITS RANGE LAB SLACTT <2.1 mmol/L High Sepsis 2.6 Lactate LAB VBGCOM Blood Gas Urgent Comm, Rajeev value Result Comment: SLACT LAB VCBWHO Notified Whom, Rajeev Called to and read back by Result Comment: [facility] LAB VCBDTE [id number] Notify Date, Rajeev LAB [id number] [id number] Notify Time, Rajeev Performed By: #### SLACT #### [place] [id number] [place] [address] HEMOGLOBIN Collected: 11/26/2017 Status: F Source: [place] 4:04 PM [facility] REPOSITORY TYPE CODE TESTS RESULT OUT OF REFERENCE UNITS RANGE LAB HGB 11.5-15.5 g/dL Low Hemoglobin 11.1 Performed By: #### HGB #### [place] [address] HEMOGLOBIN Collected: 11/26/2017 Status: F Source: [place] 3:34 PM [facility] REPOSITORY TYPE CODE TESTS RESULT OUT OF REFERENCE UNITS RANGE LAB HGB 11.5-15.5 g/dL Hemoglobin Unable to assay. Specimen improperly collected/handl ed. Result Comment: Specimen collected in wrong container type. TEST REQUIRES A LAVENDER TUBE. SPECIMEN WAS RECEIVED IN A DARK GREEN TUBE. NOTIFIED JEFF POLO OF THE ISSUE AND A NEED FOR A RECOLLECTION AND A NEW ORDER. [facility] [id number] Account Credited Performed By: #### HGB #### [place] [id number] NURSING PROG Observed: 11/26/2017 Status: COMPLETED Source: [place] 10:59 AM [facility] REPOSITORY HNO ID: [id number] Author: Edel (Rn) Abel RN Service: Nursing Author Type: Registered Nurse Type: Nursing Progress Note Filed: 11/26/2017 2:20 PM Note Text: Nursing Progress Note Patient Name: Paloma Cannon Patient Location: H080 015/H080-16 Daily Note: AANDOx3. Pt tachycardic @ 103. Pt c/o worsening pain, increased with deep breath; PRN pain med per mar with no relief. Sepsis Lactate resulted @ 2.3; Dr. Esteban and Dr. Cordero notified. CT performed, pt tolerated. Safety precautions in place; bed in locked/lowest position, call light within reach. Will continue to monitor. 1419 Pt now requiring 5L to maintain O2 95%<; Dr. Pat Goldsmith notified. This note was completed by: Edel Roman RN CT ABD/PEL WO IVCON Observed: 11/26/2017 Status: F Source: [place] 10:56 AM [facility] REPOSITORY * * *Final Report* * * DATE OF EXAM: Nov 26 2017 10:56AM [facility] [place] 0531 - CT ABD/PEL WO IVCON / PROCEDURE REASON: Mass or lump, abdomen pelvis * * * * Physician Interpretation * * * * EXAMINATION: CT ABDOMEN AND PELVIS WITHOUT IV CONTRAST CLINICAL HISTORY: History of retroperitoneal bleed, new LEFT 04/18 abdominal pain TECHNIQUE: Non-IV contrast imaging of the abdomen and pelvis was performed using standard technique, scanning from just above the dome of the diaphragm to the symphysis pubis. Unenhanced imaging is limited for the evaluation of some intra-abdominal and pelvic pathology. MQ: [id number]_3 Contrast: IV: None CT Radiation dose: Integrated Dose-length product (DLP) for this visit = 1142 mGy*cm. CT Dose Reduction Employed: Automated exposure control (AEC) COMPARISON: 11/24/2017 RESULT: Abdomen / Pelvis: Retroperitoneum: Large LEFT retroperitoneal hematoma extending from the level of LEFT kidney into the pelvis. Overall, it is essentially unchanged in size since prior study measuring 17.1 x 12.4 cm (series 2 image 81) in maximum axial dimension and 21 cm (series 3 image 53) in maximum craniocaudal dimension. No internal gas Liver: Unremarkable. Biliary: Status post cholecystectomy Spleen: No splenomegaly. Pancreas: Unremarkable. Adrenals: No mass. Kidneys: No calculus, hydronephrosis or finding to suggest a cyst or mass in the unenhanced kidney. GI Tract: No bowel dilation. Lymph Nodes: No lymphadenopathy. Mesentery/peritoneum: No ascites. Vasculature: Venous stent in both iliac veins and IVC. There are multiple abdominal wall vascular collaterals, unchanged. Pelvis: Urinary bladder is mildly distended and is unremarkable. 7 x 3 cm pocket of LEFT extraperitoneal fluid is unchanged since prior study and is likely an extension of the hematoma Bones/Soft Tissues: No acute abnormality. Lower thorax: Persistent diffuse groundglass opacities at visualized lung bases. No pleural effusion IMPRESSION: STABLE LARGE LEFT RETROPERITONEAL HEMATOMA Practice Support Specialist: MURTAZA Transcribe Date/Time: Nov 26 2017 1:00P Dictated by : URSZULA WHARTON MD This examination was interpreted and the report reviewed and electronically signed by: URSZULA WHARTON MD on Nov 26 2017 1:06PM EST [id number] SEPSIS LACTATE Collected: 11/26/2017 Status: F Source: [place] 10:50 AM [facility] REPOSITORY TYPE CODE TESTS RESULT OUT OF REFERENCE UNITS RANGE LAB SLACTT <2.1 mmol/L High Sepsis 2.3 Lactate LAB VBGCOM Blood Gas Urgent Comm, Rajeev value Result Comment: SEPSIS LACT LAB VCBWHO Notified Whom, Rajeev Called to and read back by Result Comment: [facility] VCBDTE [id number] Notify Date, Rajeev LAB VCBTME Notify Time, Rajeev Performed By: #### SLACT #### [facility] [address] [address] HEMOGLOBIN Collected: 11/26/2017 Status: F Source: [place] 10:09 AM [facility] REPOSITORY TYPE CODE TESTS RESULT OUT OF REFERENCE UNITS RANGE LAB HGB 11.5-15.5 g/dL Low Hemoglobin 11.4 Performed By: #### HGB #### [facility] [address] [address] CONSULT PROG Observed: 11/26/2017 Status: COMPLETED Source: [place] 7:00 AM [facility] REPOSITORY HNO ID: [id number] Author: Afia Roman Service: Vascular Medicine Author Type: Physician Type: Consult Progress Note Filed: 11/26/2017 11:40 AM Note Text: VASCMED CONSULT PROGRESS NOTE SERVICE DATE: 11/26/2017 Subjective Follow Up Regarding: APS, remote hx of HIT INTERVAL HPI and PERTINENT ROS: Ms. Cannon states her left sided abdominal pain is worse today compared to previous, new sharp pain. Not resolved with pain medicine. Able to tolerate diet and pass BM, unrelated to pain. States this is a new pain for her. No evidence of bleeding at this time, no worsening SOB, CP This AM, INR 1.4, aPTT 54.7 on 0.1 mg/kg/hr bival, and plts 130. Hb stable at 11.3 Current Facility-Administered Medications: warfarin order for discharge OTHER PRN hyoscyamine sublingual 0.25 mg tab(s) (LEVSIN SL) 0.25 mg SUBLINGUAL TID PRN oxyCODONE IR 5 mg tab(s) (ROXICODONE) 5 mg ORAL/FEEDING TUBE q 4 H PRN [id number] 10 mL oral liquid (BMX 1:1:1) 10 mL ORAL q 2 H PRN bivalirudin 250 mg in D5W 250 mL (ANGIOMAX) 0.1 mg/kg/hr INTRAVENOUS CONTINUOUS gabapentin 400 mg cap(s) (NEURONTIN) 400 mg ORAL TID cyclobenzaprine 10 mg tab(s) (FLEXERIL) 10 mg ORAL AT BEDTIME cyclobenzaprine 10 mg tab(s) (FLEXERIL) 10 mg ORAL BID PRN NIFEdipine ER 60 mg tab(S) (PROCARDIA XL) 60 mg ORAL BID predniSONE 40 mg tab(s) (DELTASONE) 40 mg ORAL/FEEDING TUBE DAILY HYDROmorphone 0.3 mg in NaCl 0.9% (DILAUDID) 0.3 mg INTRAVENOUS q 6 H PRN acetaminophen 1,000 mg tab(s) (TYLENOL) 1,000 mg ORAL TID torsemide 20 mg tab(s) (DEMADEX) 20 mg ORAL DAILY 0.9% NaCl 10 mL 10 mL INTRAVENOUS q 12 H 0.9% NaCl 20 mL 20 mL INTRAVENOUS PRN sodium citrate 4% 3-6 mL catheter lock 3-6 mL INTRALUMINAL APHERESIS PRN albuterol 2.5 mg /3 mL (0.083 %) 2.5 mg (PROVENTIL) 2.5 mg INHALATION q 4 WEEKS And pentamidine 300 mg nebulizer solution (NEBUPENT) 300 mg INHALATION q 4 WEEKS carvedilol 25 mg tab(s) (COREG) 25 mg ORAL/FEEDING TUBE BID w MEALS lidocaine 5 % 1 Patch (LIDODERM) 1 Patch TRANSDERMAL DAILY And lidocaine patch - REMOVE OTHER AT BEDTIME And lidocaine - VERIFY PATCH OTHER q 8 H polyethylene glycol 3350 17 g packet (MIRALAX, GLYCOLAX) 17 g ORAL/FEEDING TUBE DAILY docusate sodium 100 mg cap(s) (COLACE) 100 mg ORAL BID senna 8.6 mg tab(s) (SENOKOT) 8.6 mg ORAL/FEEDING TUBE BID pantoprazole DR 40 mg tab(s) (PROTONIX) 40 mg ORAL DAILY (6 AM) ondansetron 8 mg tab(s) (ZOFRAN) 8 mg ORAL q 8 H PRN diphenhydrAMINE 50 mg (BENADRYL) 50 mg ORAL/FEEDING TUBE q 6 H PRN hydrocortisone sodium succinate (PF) 100 mg injection (Solu- CORTEF) 100 mg INTRAVENOUS q 4 H PRN diphenhydrAMINE 50 mg injection (BENADRYL) 50 mg INTRAVENOUS q 4 H PRN prochlorperazine 5 mg injection (COMPAZINE) 5 mg INTRAVENOUS q 6 H PRN dextrose 50% in water 25-50 mL syringe 12.5-25 g INTRAVENOUS PRN dextrose 40 % 15 g 15 g ORAL PRN glucagon 1 mg injection (GLUCAGEN) 1 mg SUBCUTANEOUS PRN Objective PHYSICAL EXAM: BP 121/73 Pulse 96 Temp 36.9 ?C (98.4 ?F) (Oral) Resp 18 Ht 160 cm (5' 3) Wt 102.3 kg (225 lb 8.5 oz) SpO2 90% BMI 39.95 kg/m? General: Sitting up in bed, eating breakfast Cardiac: S1 S2 audible Respiratory: CTAB, breathing comfortably, wearing O2 per NC Abdominal/GI: soft, tender in left upper quadrant. Soft bowel sounds Extremity: 1+ edema Skin: no lesions or rashes noted Pulse/vascular exam: right radial, DP palp left radial, DP palp DATA: Diagnostic tests reviewed for today's visit: Most recent labs Component Latest Ref Rng AND Units 11/26/2017 WBC 3.70 - 11.00 k/uL 6.70 RBC 3.90 - 5.20 m/uL 3.37 (L) Hemoglobin 11.5 - 15.5 g/dL 11.3 (L) Hematocrit 36.0 - 46.0 % 34.9 (L) MCV 80.0 - 100.0 fL 103.6 (H) MCH 26.0 - 34.0 pG 33.5 MCHC 30.5 - 36.0 g/dL 32.4 RDW-CV 11.5 - 15.0 % 21.4 (H) Platelet Count 150 - 400 k/uL 130 (L) MPV 9.0 - 12.7 fL 10.0 Absolute nRBC <0.01 k/uL <0.01 PT Sec 9.7 - 13.0 sec 14.3 (H) PT INR 0.9 - 1.3 1.4 (H) APTT 23.0 - 32.4 sec 54.7 (H) Impression/Recommendations 27 year old female with PMH of hepatic vein thrombosis, caval/iliofemoral DVT, 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 Hospital course further c/b severe thrombocytopenia and CAPRICE requiring dialysis. AC was held x 4 weeks, recently resumed. Hematology following , patient has received apheresis, Nplate and cytoxan currently being held. She is currently on bival to coumadin bridge. Renal function has recovered. Hemoglobin stable and platelets continue to uptrend with no clinical signs of bleeding. ? Patient's left UQ abdominal pain worse today, increasingly sharp. Not improved with pain medications. Would consider further investigation, such as repeat abdominal CT. ? -Continue bival for now, though low threshold to stop if suspicion for worsening hematoma -if continuing coumadin, today will be day 4, INR 1.4 (2.0- 3.0) likely bival effect, down from 1.6 on 11/24. Would give 5mg of coumadin 11/26 aPTT ?54.7 (46-65) therapeutic, continue with 0.1mg/kg/hr and repeat aPTT tomorrow morning. Please call [facility] [phone] if not within therapeutic range Bival and Coumadin should overlap for a minimum of 5 days and until INR is therapeutic before Bival can be discontinued. aPTTs, CBC/INR daily in house Duration of treatment: fpc Upon discharge, INR management to be resumed by Vascular Medicine ? Patient to be seen and discussed w/ Dr. Roman, Staff Saran Pan Fellow SIGNATURE: Morteza Pan MD PATIENT NAME: Paloma Cannon DATE: November 26, 2017 TIME: 7:00 AM PAGER/CONTACT #: [phone] DR. FRED STONE, SR. HOSPITAL STAFF PHYSICIAN NOTE OF PERSONAL INVOLVEMENT IN CARE Abdominal pain and tenderness, which are new today. Just back from repeat CT scan. I reviewed in comparison with two days ago. It appears similar but will need to review with radiology. Hemoglobin this morning was improved. Bivalirudin still infusing. I have reviewed the documentation obtained and documented by Dr. Pan and have reviewed and updated the problem list as appropriate. I have personally performed a [id number]-[id number] assessment of the patient and I have discussed the case and management of the patient's care. STAFF PHYSICIAN: Afia Roman MD DATE OF SERVICE: November 26, 2017 TIME OF SERVICE: 11:38 AM PROGRESS Observed: 11/26/2017 Status: COMPLETED Source: [place] 5:52 AM [facility] REPOSITORY O ID: [id number] Author: Thomas Esteban Service: General Internal Medicine Author Type: Physician Type: Progress Notes Filed: 11/26/2017 5:37 PM Note Text: [facility] Terry PROGRESS NOTE After 5 pm on weekdays and 3pm on weekends and holidays please page documentation clerk pager [phone] SERVICE DATE: 11/26/2017 SERVICE TIME: 6:48 PM INTERVAL HISTORY: - No acute events overnight - feels less abdominal discomfort after passing stool, on levsin for abdominal cramps - will continue to monitor for new hemoptysis - HDS, on 2-3 L NC - innaccurate I/O but patients reports good urination with torsemide 20 mg - platelet count >100 and rising 134 today, Hb stable at 11.3 - INR 1.4-->1.4 today. On bival + coumadin. Coumadin dosing so far: 5 mg + 2.5 mg PLAN FOR TODAY - coumadin 5 mg tonight Bridge atleast 5 days w bival - monitor for signs of fresh bleeding and new pain (Left RP and abdominal pain) - repeat Ct abd today as she endorses LUQ pain that started this AM, rule out new bleed. Repeat Hb and lactate - appreciate VM and heme recs - monitor platelet and Hgb levels - c/w torsemide 20 mg qday; strict I/O - desaturation study required prior to discharge - N-plate this week, per Heme - next apheresis 11/27. May affect coumadin levels. MEDICATIONS: Current hospital medications: warfarin order for discharge OTHER PRN hyoscyamine sublingual 0.25 mg tab(s) (LEVSIN SL) 0.25 mg SUBLINGUAL TID PRN oxyCODONE IR 5 mg tab(s) (ROXICODONE) 5 mg ORAL/FEEDING TUBE q 4 H PRN [id number] 10 mL oral liquid (BMX 1:1:1) 10 mL ORAL q 2 H PRN bivalirudin 250 mg in D5W 250 mL (ANGIOMAX) 0.1 mg/kg/hr INTRAVENOUS CONTINUOUS gabapentin 400 mg cap(s) (NEURONTIN) 400 mg ORAL TID cyclobenzaprine 10 mg tab(s) (FLEXERIL) 10 mg ORAL AT BEDTIME cyclobenzaprine 10 mg tab(s) (FLEXERIL) 10 mg ORAL BID PRN NIFEdipine ER 60 mg tab(S) (PROCARDIA XL) 60 mg ORAL BID predniSONE 40 mg tab(s) (DELTASONE) 40 mg ORAL/FEEDING TUBE DAILY HYDROmorphone 0.3 mg in NaCl 0.9% (DILAUDID) 0.3 mg INTRAVENOUS q 6 H PRN acetaminophen 1,000 mg tab(s) (TYLENOL) 1,000 mg ORAL TID torsemide 20 mg tab(s) (DEMADEX) 20 mg ORAL DAILY 0.9% NaCl 10 mL 10 mL INTRAVENOUS q 12 H 0.9% NaCl 20 mL 20 mL INTRAVENOUS PRN sodium citrate 4% 3-6 mL catheter lock 3-6 mL INTRALUMINAL APHERESIS PRN albuterol 2.5 mg /3 mL (0.083 %) 2.5 mg (PROVENTIL) 2.5 mg INHALATION q 4 WEEKS pentamidine 300 mg nebulizer solution (NEBUPENT) 300 mg INHALATION q 4 WEEKS carvedilol 25 mg tab(s) (COREG) 25 mg ORAL/FEEDING TUBE BID w MEALS lidocaine 5 % 1 Patch (LIDODERM) 1 Patch TRANSDERMAL DAILY lidocaine patch - REMOVE OTHER AT BEDTIME lidocaine - VERIFY PATCH OTHER q 8 H polyethylene glycol 3350 17 g packet (MIRALAX, GLYCOLAX) 17 g ORAL/FEEDING TUBE DAILY docusate sodium 100 mg cap(s) (COLACE) 100 mg ORAL BID senna 8.6 mg tab(s) (SENOKOT) 8.6 mg ORAL/FEEDING TUBE BID pantoprazole DR 40 mg tab(s) (PROTONIX) 40 mg ORAL DAILY (6 AM) ondansetron 8 mg tab(s) (ZOFRAN) 8 mg ORAL q 8 H PRN diphenhydrAMINE 50 mg (BENADRYL) 50 mg ORAL/FEEDING TUBE q 6 H PRN hydrocortisone sodium succinate (PF) 100 mg injection (Solu- CORTEF) 100 mg INTRAVENOUS q 4 H PRN diphenhydrAMINE 50 mg injection (BENADRYL) 50 mg INTRAVENOUS q 4 H PRN prochlorperazine 5 mg injection (COMPAZINE) 5 mg INTRAVENOUS q 6 H PRN dextrose 50% in water 25-50 mL syringe 12.5-25 g INTRAVENOUS PRN dextrose 40 % 15 g 15 g ORAL PRN glucagon 1 mg injection (GLUCAGEN) 1 mg SUBCUTANEOUS PRN PHYSICAL EXAM: BP 120/73 Pulse 87 Temp 36.6 ?C (97.8 ?F) (Oral) Resp 18 Ht 160 cm (5' 3) Wt 102.3 kg (225 lb 8.5 oz) SpO2 92% BMI 39.95 kg/m? Temp (24hrs), Av.9 ?C (98.4 ?F), Min:36.7 ?C (98.1 ?F), Max:37.2 ?C (98.9 ?F) INTAKE/OUTPUT Intake/Output Summary (Last 24 hours) at 11/26/17 0602 Last data filed at 11/26/17 0200 Gross per 24 hour Intake 583.2 ml Output 1 ml Net 582.2 ml General: Alert, oriented, cooperative.?In no acute distress. 2L NC Skin:?Chronic skin changes on bilateral LE below the knee?due to lymphedema HEENT: EOM. Pupils equal, round and reactive Cardiovascular: RRR. No murmur Lungs: Minimal crepitations at the bases than prior Abdomen: Soft, TTP in LUQ, no masses or organomegaly Extremities: 2+ peripheral edema but improving,?+2 DP pulses bilaterally Neurological: Moving all extremities freely? LAB DATA: Recent Labs 11/26/17 0514 11/25/17 0429 11/24/17 0653 WBC 6.70 6.14 5.78 HB 11.3* 10.8* 11.2* HCT 34.9* 33.9* 35.6* PLT 130* 135* 113* INR 1.4* 1.4* 1.6* APTT 54.7* 55.2* 54.9* NA 140 -- 141 K 3.9 -- 4.0 CHLOR 100 -- 100 CO2 26 -- 27 BUN 38* -- 41* CREAT 1.34* -- 1.33* GLUC 75 -- 74 CA 8.7 -- 8.8 P 3.9 -- -- ASSESSMENT AND PLAN: Active Hospital Problems Diagnosis - Retroperitoneal hematoma Retroperitoneal bleed: s/p 7 units PRBCs s/p IR emobolization of left L3 artery at [facility] on 10/23 IR embolization of left L2 and L3 arteries on 10/26 CT abd/pel 10/31: RP bleed stable when compared to previous imaging from 10/27 LDH 1730, haptoglobin <10, Tbili 1.3- concern for hemolysis as well. 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 Has received stenting of IVC and iliacs along with endograft of IVC. 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 C/B extensive RP bleed s/p L2, L3 embolization. N-plate 11/09, 11/13 Received Apheresis on 11/03, 11/13 (heme following); patient is on [id number] (Mondays), next scheduled for 11/27 11/22: started bivalirudin for bridge to coumadin (on 2.5 alternating w 5 mg coumadin) Plan: Holding Cytoxan 75 mg in setting of worsening thrombocytopenia Continue prednisone 40 mg withpentamidine ppx Appreciate hematology and VM recs c/w with bivalirudin and start coumadin bridge. Bivalirudin and coumadin should overlap for a minimum of 5 days until INR is therapeutic before Bivalirudin can be discontinued - CAPRICE (acute kidney injury) (HCC) CAPRICE on CKD III, 2/2 contrast, improved to S.Cr-1.3 Received IHD during this admission but renal recover and IHD was held Plan: Nephrology following- appreciate recommendations Daily BMPs to watch K, Na and phosphorus levels Renal dosing of medication Avoid excess fluids and nephrotoxic drugs - HTN (hypertension) Mildly decreased systolic function, diastolic function indeterminate on 10/13/17 ECHO. 10/28: Run of SBP in 200s overnight (likely d/t pain), given hydralazine however still consistently in 170s-180s 10/29: Still hypertensive, required 4 doses of hydralazine overnight Switched Amlodipine 10 mg to nifedipine 30mg on 11/10, and increased Coreg from 6.25 to 25 mg BID Plan: Nifedipine 60 mg BID and keeping Coreg 25 mg at current dosing Can consider adding PRN hydralazine for SBP>180 mm Hg, Also on torsemide for volume - Diffuse pulmonary alveolar hemorrhage Currently stable, no new episodes Has had 6 admissions recently for acute respiratory failure requiring mechanical ventilation Cytoxan was reduced from 150 to 75 mg due to concern for BM toxicity; renally dosed Decreased prednisone from 60 to 40 mg Plan: Continue to monitor respiratory status Continue oxygen therapy at 2L NC Holding Cytoxan in setting of worsening thrombocytopenia Continue Prednisone 40 mg daily Switched bactrim to pentamidine for ppx on 11/12 Will reach out to outpatient provider regarding switch to pentamidine from bactrim, per heme recs - Moraxella catarrhalis pneumonia (HCC) Had respiratory cultures growing Moraxella catarrhalis Received ceftriaxone 10/27-11/03- 7 days therapy WBC trended down from 21 K to 12K. Currently at baseline O2 requirement but still slightly tachypneic Completed course of ceftriaxone. Plan: Continue to monitor respiratory status closely BPH per RT Incentive spirometry - Peripheral neuropathy - History of heparin-induced thrombocytopenia Avoid all heparin products. 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 - Left groin pain 10/27: C/o acute painin morning, access site for embolization at [facility], no erythema or induration appreciated on exam, exquisitely TTP Groin study showed no signs of PSA, known AV fistula visualized with retrograde flow, vascular med aware- no further recs 10/28: pain less severe, no physical exam findings Repeat Leg DVT shows no pseudoaneurysm Likely due to nerve compression/RP hematoma causing compressive symtpoms S/p R groin drain placed at [facility] on 10/24 s/p L groin drain placed at [facility] during embolization on 10/26 Plan: - repeat image showed decreased size - will continue to monitor symptoms and HANDH w low threshold for imaging MAINTENANCE: VTE PROPHYLAXIS:?bivalirudin + coumadin (day 4) NEED FOR ZUNIGA- Removed 11/14/17 LINES: Double lumen dialysis catheter 10/25/17 Dispo-?Acute rehabilitation center This note is not final until staffed by the attending physician and authenticated by responsible provider. SIGNATURE: Adin Goldsmith MD PATIENT NAME: Paloma Cannon DATE: November 26, 2017 TIME: 6:48 AM PAGER: [phone] DR. FRED STONE, SR. HOSPITAL STAFF PHYSICIAN NOTE OF PERSONAL INVOLVEMENT IN CARE I have reviewed the progress note obtained and documented by the resident and I personally participated in the fernandes components. I have discussed the case and management of the patient's care. The following comments revise or confirm relevant fernandes components of their note. IMPRESSION: This is a 27 year old female who presents with RP bleed. new onset of LUQ abd pain no radiation. no n/v. no GI bleed. CT a/p without contrast unchanged. h/h stable. on bival. lactate minimally elevated to 2.3. exam c/w LUQ tenderness to exam. no gaurding. BS+ PLAN: IVF, repeat lactate, monitor closely. CARE COORDINATION: SIGNATURE: Thomas Esteban MD PAGER: [phone] DATE of SERVICE: 11/26 TIME of SERVICE: 9am addendum pt seen again at 5:30pm. resting comfortably in bed. recv'd dilaudid an hour so ago. denies any sob or chest pain. LUQ abd pain improved compared to this am. + cough wt blood tinged sputum but somewhat more frequent today. no fevers VSS; 95% on 5L CTA RRR no tachy soft BS+; minimal LUQ tenderness on exam lactate 2.6 check cxr and BC and UA noted patient on bival/coumadin and prednisone wean down oxygen to 4L repeat lactate monitor closely d/w nursing staff AND housestamartin Esteban MD 5:30PM CBC Collected: 11/26/2017 Status: F Source: [place] 5:14 AM [facility] REPOSITORY TYPE CODE TESTS RESULT OUT OF REFERENCE UNITS RANGE LAB WBC 3.70-11.00 k/uL WBC 6.70 LAB RBC 3.90-5.20 m/uL Low RBC 3.37 LAB HGB 11.5-15.5 g/dL Low Hemoglobin 11.3 LAB HCT 36.0-46.0 % Low Hematocrit 34.9 LAB MCV 80.0-100.0 fL MCV High 103.6 LAB MCH 26.0-34.0 pG MCH 33.5 LAB MCHC 30.5-36.0 g/dL MCHC 32.4 LAB RDWCV 11.5-15.0 % RDW-CV High 21.4 LAB PLTCT 150-400 k/uL Low Platelet Count 130 LAB MPV 9.0-12.7 fL MPV 10.0 LAB ABSNUC <0.01 k/uL Absolute nRBC <0.01 Performed By: #### CBC, PT, PTT, RFP #### [facility] [address] [place] [address] PROTIME Collected: 11/26/2017 Status: F Source: [place] 5:14 AM [facility] REPOSITORY TYPE CODE TESTS RESULT OUT OF RANGE REFERENCE UNITS LAB PSEC 9.7-13.0 sec High PT Sec 14.3 LAB INR 0.9-1.3 High PT INR 1.4 Result Comment: Vitamin K Antagonist (VKA) Therapeutic Range: INR 2 to 3 (Target INR of 2.5) Note: For patients treated with VKA drugs, such as warfarin, the [employer] 2012 Guideline recommends a therapeutic INR range of 2 to 3 (target INR of 2.5). This recommendation includes high-risk patients with antiphospholipid syndrome with previous arterial or venous thromboembolism, current-generation mechanical or bioprosthetic aortic heart valve replacement. Note: Patients with mechanical aortic valve replacement and additional risk factors for thromboembolic events (atrial fibrillation, previous thromboembolism, LV dysfunction, hypercoagulable conditions) or an older generation mechanical AVR (i.e., ball in-Cage) or any mechanical MVR should have a INR therapeutic range of 2.5 to 3.5 (target INR of 3). Michael GH, et al. Chest 2012, 141:7S-47S Diogenes RA, et al. [facility] 2017, 70: 252-289 Performed By: #### CBC, PT, PTT, RFP #### [facility] [address], [place] [address] APTT Collected: 11/26/2017 Status: F Source: [place] 5:14 AM [facility] REPOSITORY TYPE CODE TESTS RESULT OUT OF RANGE REFERENCE UNITS LAB APTT 23.0-32.4 sec High APTT 54.7 Result Comment: Unfractionated Heparin Therapeutic Ranges: Standard Heparin Nomogram: 53 to 78 seconds (anti-Xa level of 0.3 to 0.7 U/ml) Low Dose/ACS Nomogram: 49 to 67 seconds (anti-Xa level of 0.2 to 0.5 U/ml) Stroke Treatment Nomogram: 49 to 67 seconds (anti-Xa level of 0.2 to 0.5 U/ml) Note: The APTT therapeutic range has been determined for the current lot of laboratory APTT reagent in use throughout the [facility]. Performed By: #### CBC, PT, PTT, RFP #### [facility] [address], [place] [address] RENAL FUNCTION PANEL Collected: 11/26/2017 Status: F Source: [place] 5:14 [facility] REPOSITORY TYPE CODE TESTS RESULT OUT OF REFERENCE UNITS RANGE LAB ALB 3.9-4.9 g/dL Low Albumin 3.3 LAB CA 8.5-10.2 mg/dL Calcium, Total 8.7 LAB PHOS 2.7-4.8 mg/dL Phosphorus 3.9 LAB GLU 74-99 mg/dL Glucose 75 Result Comment: The [place] [employer] (ADA) provides guidance for cutoff values for fasting glucose and random glucose. The ADA defines fasting as no caloric intake for at least 8 hours. Fas ting plasma glucose results between 100 to 125 mg/dL indicate increased risk for diabetes (prediabetes). Fasting plasma glucose results greater than or equal to 126 mg/dL meet the criteria for diagnosis of diabetes. In the absence of unequivocal hyperglycemia, results should be confirmed by repeat testing. In a patient with classic symptoms of hyperglycemia or hyperglycemic crisis, random plasma glucose results greater than or equal to 200 mg/dL meet the criteria for diagnosis of diabetes. Reference: Standards of Medical Care in Diabetes 2016, [place] [employer]. Diabetes Care. 2016.39(Suppl 1). LAB BUN 7-21 mg/dL BUN High 38 LAB CRET 0.58-0.96 mg/dL Creatinine High 1.34 LAB NA 136-144 mmol/L Sodium 140 LAB K 3.7-5.1 mmol/L Potassium 3.9 LAB CL 97-105 mmol/L Chloride 100 LAB CO2 22-30 mmol/L CO2 26 LAB AGAP 9-18 mmol/L Anion Gap 14 LAB GFRAA eGFR- Amer. 57 LAB GFRNAA . eGFR-All Other Races 47 Result Comment: eGFR (Estimated GFR) Units of measure: mL/min/1.73 meters squared eGFR is derived from the reexpressed MDRD Study equation using the following parameters: serum creatinine, age, gender and race. The creatinine assay has been calibrated to be traceable to IDMS. An eGFR <60 mL/min/1.73m2 for >3 months is consistent with chronic kidney disease. Refer to KDOQI guidelines for clinical interpretation. In patients with unstable renal function, e.g. those with acute kidney injury, the eGFR may not accurately reflect actual GFR. Performed By: #### CBC, PT, PTT, RFP #### [facility] [address] [place], [place] [address] PROGRESS Observed: 11/25/2017 Status: COMPLETED Source: [place] 9:47 PM [facility] REPOSITORY O ID: [id number] Author: Thomas Esteban Service: General Internal Medicine Author Type: Physician Type: Progress Notes Filed: 11/26/2017 9:07 AM Note Text: RAF Terry PROGRESS NOTE For questions regarding this patient today please page [phone] After 5 pm on weekdays and 3pm on weekends and holidays please page documentation clerk pager [phone] SERVICE DATE: 11/25/2017 SERVICE TIME: 9:48 PM INTERVAL HISTORY: - No acute events overnight - feels less abdominal discomfort after passing stool. Added levsin yesterday - coughed up old blood overnight. This is not a new complaint, but will monitor for fresh blood - HDS, on 2-3 L NC - innaccurate I/O but patients reports good urination with torsemide 20 mg - platelet count >100 and rising - INR 1.4 today. On bival + coumadin. Coumadin dosing so far: 5 mg + 2.5 mg PLAN FOR TODAY - coumadin 2.5 mg tonight since INR domi quickly with bivalirudin + coumadin 5 mg - monitor for signs of fresh bleeding and new pain (Left RP and abdominal pain) - appreciate VM and heme recs - monitor platelet and Hgb levels - c/w torsemide 20 mg qday; strict I/O - desaturation study required prior to discharge - N-plate this week, per Heme - next apheresis 11/27. May affect coumadin levels. MEDICATIONS: Current hospital medications: warfarin order for discharge OTHER PRN hyoscyamine sublingual 0.25 mg tab(s) (LEVSIN SL) 0.25 mg SUBLINGUAL TID PRN oxyCODONE IR 5 mg tab(s) (ROXICODONE) 5 mg ORAL/FEEDING TUBE q 4 H PRN [id number] 10 mL oral liquid (BMX 1:1:1) 10 mL ORAL q 2 H PRN bivalirudin 250 mg in D5W 250 mL (ANGIOMAX) 0.1 mg/kg/hr INTRAVENOUS CONTINUOUS gabapentin 400 mg cap(s) (NEURONTIN) 400 mg ORAL TID cyclobenzaprine 10 mg tab(s) (FLEXERIL) 10 mg ORAL AT BEDTIME cyclobenzaprine 10 mg tab(s) (FLEXERIL) 10 mg ORAL BID PRN NIFEdipine ER 60 mg tab(S) (PROCARDIA XL) 60 mg ORAL BID predniSONE 40 mg tab(s) (DELTASONE) 40 mg ORAL/FEEDING TUBE DAILY HYDROmorphone 0.3 mg in NaCl 0.9% (DILAUDID) 0.3 mg INTRAVENOUS q 6 H PRN acetaminophen 1,000 mg tab(s) (TYLENOL) 1,000 mg ORAL TID torsemide 20 mg tab(s) (DEMADEX) 20 mg ORAL DAILY 0.9% NaCl 10 mL 10 mL INTRAVENOUS q 12 H 0.9% NaCl 20 mL 20 mL INTRAVENOUS PRN sodium citrate 4% 3-6 mL catheter lock 3-6 mL INTRALUMINAL APHERESIS PRN albuterol 2.5 mg /3 mL (0.083 %) 2.5 mg (PROVENTIL) 2.5 mg INHALATION q 4 WEEKS pentamidine 300 mg nebulizer solution (NEBUPENT) 300 mg INHALATION q 4 WEEKS carvedilol 25 mg tab(s) (COREG) 25 mg ORAL/FEEDING TUBE BID w MEALS lidocaine 5 % 1 Patch (LIDODERM) 1 Patch TRANSDERMAL DAILY lidocaine patch - REMOVE OTHER AT BEDTIME lidocaine - VERIFY PATCH OTHER q 8 H polyethylene glycol 3350 17 g packet (MIRALAX, GLYCOLAX) 17 g ORAL/FEEDING TUBE DAILY docusate sodium 100 mg cap(s) (COLACE) 100 mg ORAL BID senna 8.6 mg tab(s) (SENOKOT) 8.6 mg ORAL/FEEDING TUBE BID pantoprazole DR 40 mg tab(s) (PROTONIX) 40 mg ORAL DAILY (6 AM) ondansetron 8 mg tab(s) (ZOFRAN) 8 mg ORAL q 8 H PRN diphenhydrAMINE 50 mg (BENADRYL) 50 mg ORAL/FEEDING TUBE q 6 H PRN hydrocortisone sodium succinate (PF) 100 mg injection (Solu- CORTEF) 100 mg INTRAVENOUS q 4 H PRN diphenhydrAMINE 50 mg injection (BENADRYL) 50 mg INTRAVENOUS q 4 H PRN prochlorperazine 5 mg injection (COMPAZINE) 5 mg INTRAVENOUS q 6 H PRN dextrose 50% in water 25-50 mL syringe 12.5-25 g INTRAVENOUS PRN dextrose 40 % 15 g 15 g ORAL PRN glucagon 1 mg injection (GLUCAGEN) 1 mg SUBCUTANEOUS PRN HOME MEDICATIONS: cyclophosphamide (CYTOXAN) 50 mg capsule Take 150 mg by mouth once daily. diphenhydrAMINE (BENADRYL) 50 mg capsule Take 1 capsule by mouth every 6 hours as needed for Itching/Rash. gabapentin (NEURONTIN) 100 mg capsule Take 1 capsule by mouth three times daily for 7 days. ondansetron (ZOFRAN, HYDROCHLORIDE,) 8 mg tablet Take 8 mg by mouth every 8 hours as needed for Nausea/Vomiting. pantoprazole DR (PROTONIX) 40 mg tablet Take 40 mg by mouth daily at bedtime. sulfamethoxazole-trimethoprim (BACTRIM DS) 800-160 mg per tablet Take 1 tablet by mouth every Monday,Monday,Monday. fluticasone (FLONASE) 50 mcg/actuation nasal spray Use 1-2 Sprays in each nostril once daily as needed for Cold/Allergy Symptoms (starting in allergy season). senna 8.6 mg tab Take 1 tablet by mouth twice daily as needed. PHYSICAL EXAM: VITAL SIGNS Patient Vitals for the past 24 hrs: BP Temp Temp src Pulse Resp SpO2 Weight 11/25/17 2059 144/79 - - 94 - - - 11/25/17 1700 128/78 36.9 ?C (98.4 ?F) Oral 102 18 92 % - 11/25/17 1043 118/79 - - 105 - - - 11/25/17 1030 118/79 - - 104 - - - 11/25/17 1013 145/79 37.2 ?C (98.9 ?F) Oral 105 18 93 % - 11/25/17 0700 - - - - - - 102.3 kg (225 lb 8.5 oz) 11/25/17 0600 - - - - - 95 % - 11/25/17 0558 138/71 36.9 ?C (98.4 ?F) Oral 100 18 88 % - 11/25/17 0300 - - - - - 97 % - 11/25/17 0213 127/72 36.7 ?C (98.1 ?F) Oral 89 20 88 % - 11/24/17 2205 137/80 36.9 ?C (98.4 ?F) Oral 102 18 93 % - BP 144/79 Pulse 94 Temp 36.9 ?C (98.4 ?F) (Oral) Resp 18 Ht 160 cm (5' 3) Wt 102.3 kg (225 lb 8.5 oz) SpO2 92% BMI 39.95 kg/m? Temp (24hrs), Av.9 ?C (98.4 ?F), Min:36.7 ?C (98.1 ?F), Max:37.2 ?C (98.9 ?F) INTAKE/OUTPUT Intake/Output Summary (Last 24 hours) at 11/25/178 Last data filed at 11/25/17 1800 Gross per 24 hour Intake 1169.2 ml Output 2 ml Net 1167.2 ml General: Alert, oriented, cooperative.?In no acute distress. 2L NC Skin:?Chronic skin changes on bilateral LE below the knee?due to lymphedema HEENT: EOM. Pupils equal, round and reactive Cardiovascular: RRR. No murmur Lungs: Minimal crepitations at the bases than prior Abdomen: Soft, TTP in LUQ, no masses or organomegaly Extremities: 2+ peripheral edema but improving,?+2 DP pulses bilaterally Neurological: Moving all extremities freely? LAB DATA: CBC, Coags, BMP, Mg, Phos Recent Labs 11/25/17 0429 11/24/17 0653 11/23/17 0855 WBC 6.14 5.78 5.47 HB 10.8* 11.2* 11.8 HCT 33.9* 35.6* 37.1 PLT 135* 113* 108* INR 1.4* 1.6* -- APTT 55.2* 54.9* 48.3* NA -- 141 -- K -- 4.0 -- CHLOR -- 100 -- CO2 -- 27 -- BUN -- 41* -- CREAT -- 1.33* -- GLUC -- 74 -- CA -- 8.8 -- ASSESSMENT AND PLAN: Active Hospital Problems Diagnosis - Retroperitoneal hematoma Retroperitoneal bleed: s/p 7 units PRBCs s/p IR emobolization of left L3 artery at [facility] on 10/23 IR embolization of left L2 and L3 arteries on 10/26 CT abd/pel 10/31: RP bleed stable when compared to previous imaging from 10/27 LDH 1730, haptoglobin <10, Tbili 1.3- concern for hemolysis as well. Per heme, thrombocytopenia and anemia likely related to cytoxan with stressed BM Cytoxan reduced to 75 mg daily Plan: Continue to monitor HANDH and transfuse PRBC if Hb<7 or symptomatic Continue to hold Anticoagulation until approved by Vascular medicine- initially recommended holding AC for at least 14 days since last bleeding. 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 Has received stenting of IVC and iliacs along with endograft of IVC. 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 C/B extensive RP bleed s/p L2, L3 embolization. N-plate 11/09, 11/13 Received Apheresis on 11/03, 11/13 (heme following); patient is on [id number] (Mondays) schedule outpatient 11/22: starting bivalirudin Plan: Holding Cytoxan 75 mg in setting of worsening thrombocytopenia Continue prednisone 40 mg with bactrim ppx Appreciate hematology and VM recs c/w with bivalirudin and start coumadin bridge. Bivalirudin and coumadin should overlap for a minimum of 5 days until INR is therapeutic before Bivalirudin can be discontinued - CAPRICE (acute kidney injury) (HCC) CAPRICE on CKD III, 2/2 contrast, now requiring dialysis First HD at [facility] on 10/25 with tunneled dialysis catheter placement followed by [address] Abdomen/pelvis from 10/26 showed occlusion of B/L renal veins, outflow not appreciated- could be attributing to CAPRICE and CKD Bladder scan Plan: Nephrology following- appreciate recommendations Daily BMPs to watch K, Na and phosphorus levels Renal dosing of medication Avoid excess fluids and nephrotoxic drugs - HTN (hypertension) Mildly decreased systolic function, diastolic function indeterminate on 10/13/17 ECHO. 10/28: Run of SBP in 200s overnight (likely d/t pain), given hydralazine however still consistently in 170s-180s 10/29: Still hypertensive, required 4 doses of hydralazine overnight Switched Amlodipine 10 mg to nifedipine 30mg on 11/10, and increased Coreg from 6.25 to 25 mg BID Plan: Nifedipine 60 mg BID and keeping Coreg at current dosing, can up titrate coreg if tolerating well (HR currently 80-100) Can consider adding PRN hydralazine for SBP>180 mm Hg, - Diffuse pulmonary alveolar hemorrhage Currently stable, no new episodes Has had 6 admissions recently for acute respiratory failure requiring mechanical ventilation Cytoxan was reduced from 150 to 75 mg due to concern for BM toxicity; renally dosed Decreased prednisone from 60 to 40 mg Plan: Continue to monitor respiratory status Continue oxygen therapy at 2L NC Holding Cytoxan in setting of worsening thrombocytopenia Continue Prednisone 40 mg daily Switched bactrim to pentamidine for ppx on 11/12 Will reach out to outpatient provider regarding switch to pentamidine from bactrim, per heme recs - Moraxella catarrhalis pneumonia (HCC) Had respiratory cultures growing Moraxella catarrhalis Received ceftriaxone 10/27-11/03- 7 days therapy WBC trended down from 21 K to 12K. Currently at baseline O2 requirement but still slightly tachypneic Completed course of ceftriaxone. Plan: Continue to monitor respiratory status closely BPH per RT Incentive spirometry - Peripheral neuropathy - History of heparin-induced thrombocytopenia Avoid all heparin products. - History of HIT (heparin-induced thrombocytopenia) ([facility]) Plan: - Avoid heparin products - Anticoagulation management encounter - Weakness of left leg 11/02 Left leg weakness/parasthesia Likely related to lumbar nerve compression from large retroperitoneal hematoma Neurology was following, recommended no further intervention On gabapentin renally dosed. - Left groin pain 10/27: C/o acute pain this morning, access site for embolization at [facility], no erythema or induration appreciated on exam, exquisitely TTP Groin study showed no signs of PSA, known AV fistula visualized with retrograde flow, vascular med aware- no further recs 10/28: pain less severe, no physical exam findings Repeat Leg DVT shows no pseudoaneurysm Likely due to nerve compression/RP hematoma causing compressive symtpoms S/p R groin drain placed at [facility] on 10/24 s/p L groin drain placed at [facility] during embolization on 10/26 Plan: - Pain management-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 [employer] as of transfer to [facility] - Will continue to wean dilaudid as pt tolerates, currently on Dilaudid 0.3 mg q6h PRN for pain, oxycodone PO q4h PRN and gabapentin - IR consult for drain evaluation and removal on 11/05 MAINTENANCE: VTE PROPHYLAXIS:?bivalirudin + coumadin (day 3) NEED FOR ZUNIGA- Removed 11/14/17 LINES: Double lumen dialysis catheter 10/25/17 Dispo-?Acute rehabilitation center This note is not final until staffed by the attending physician and authenticated by responsible provider. SIGNATURE: Olga Reyez MD PATIENT NAME: Paloma Cannon DATE: November 25, 2017 TIME: 9:48 PM PAGER: [phone] [facility] STAFF PHYSICIAN NOTE OF PERSONAL INVOLVEMENT IN CARE I have reviewed the progress note obtained and documented by the resident and I personally participated in the fernandes components. I have discussed the case and management of the patient's care. The following comments revise or confirm relevant fernandes components of their note. IMPRESSION: This is a 27 year old female who presents with RP bleed and severe thrombocytopenia. PLAN: as above. pls also see my brief progress note for addnl details CARE COORDINATION: SIGNATURE: Thomas Esteban MD PAGER: [phone] DATE of SERVICE: 11/25 TIME of SERVICE: 9am PROGRESS Observed: 11/25/2017 Status: COMPLETED Source: [place] 9:09 PM [facility] REPOSITORY HNO ID: [id number] Author: Thomas Esteban Service: General Internal Medicine Author Type: Physician Type: Progress Notes Filed: 11/25/2017 9:14 PM Note Text: brief staff note 27F wt catastrophic APS and recent RP bleed on 10/23 s/p embolization of L 2/ art. had been off AC dt RP bleed and severe thrombocytopenia. Thrombocytopenia resolving after Endplate. now on Bival + coumadin. tolerating well. contd coumadin 2.5mg tonite. monitor CBC and INR daily CAPRICE on CKD - stable creatinine abd cramps that have improved after start of levsin Thomas Esteban MD pager [phone] 11/25 9am CONSULT PROG Observed: 11/25/2017 Status: COMPLETED Source: [place] 7:52 AM [facility] REPOSITORY HNO ID: [id number] Author: Afia Roman Service: Vascular Medicine Author Type: Physician Type: Consult Progress Note Filed: 11/25/2017 1:54 PM Note Text: VASCMED CONSULT PROGRESS NOTE SERVICE DATE: 11/25/2017 Subjective Follow Up Regarding: APS, remote hx of HIT INTERVAL HPI and PERTINENT ROS: No acute events overnight States still has left leg pain at the hematoma, but decreasing in size No SOB, no CP No evidence of bleeding noted This AM, APTT 55.2, INR 1.4 Hb 10.8, plts 135. Stable from yesterday Current Facility-Administered Medications: warfarin order for discharge OTHER PRN hyoscyamine sublingual 0.25 mg tab(s) (LEVSIN SL) 0.25 mg SUBLINGUAL TID PRN oxyCODONE IR 5 mg tab(s) (ROXICODONE) 5 mg ORAL/FEEDING TUBE q 4 H PRN kisjhhmerwPIHJI-fwjkzp-izenpfong 10 mL oral liquid (BMX 1:1:1) 10 mL ORAL q 2 H PRN bivalirudin 250 mg in D5W 250 mL (ANGIOMAX) 0.1 mg/kg/hr INTRAVENOUS CONTINUOUS gabapentin 400 mg cap(s) (NEURONTIN) 400 mg ORAL TID cyclobenzaprine 10 mg tab(s) (FLEXERIL) 10 mg ORAL AT BEDTIME cyclobenzaprine 10 mg tab(s) (FLEXERIL) 10 mg ORAL BID PRN NIFEdipine ER 60 mg tab(S) (PROCARDIA XL) 60 mg ORAL BID predniSONE 40 mg tab(s) (DELTASONE) 40 mg ORAL/FEEDING TUBE DAILY HYDROmorphone 0.3 mg in NaCl 0.9% (DILAUDID) 0.3 mg INTRAVENOUS q 6 H PRN acetaminophen 1,000 mg tab(s) (TYLENOL) 1,000 mg ORAL TID torsemide 20 mg tab(s) (DEMADEX) 20 mg ORAL DAILY 0.9% NaCl 10 mL 10 mL INTRAVENOUS q 12 H 0.9% NaCl 20 mL 20 mL INTRAVENOUS PRN sodium citrate 4% 3-6 mL catheter lock 3-6 mL INTRALUMINAL APHERESIS PRN albuterol 2.5 mg /3 mL (0.083 %) 2.5 mg (PROVENTIL) 2.5 mg INHALATION q 4 WEEKS And pentamidine 300 mg nebulizer solution (NEBUPENT) 300 mg INHALATION q 4 WEEKS carvedilol 25 mg tab(s) (COREG) 25 mg ORAL/FEEDING TUBE BID w MEALS lidocaine 5 % 1 Patch (LIDODERM) 1 Patch TRANSDERMAL DAILY And lidocaine patch - REMOVE OTHER AT BEDTIME And lidocaine - VERIFY PATCH OTHER q 8 H polyethylene glycol 3350 17 g packet (MIRALAX, GLYCOLAX) 17 g ORAL/FEEDING TUBE DAILY docusate sodium 100 mg cap(s) (COLACE) 100 mg ORAL BID senna 8.6 mg tab(s) (SENOKOT) 8.6 mg ORAL/FEEDING TUBE BID pantoprazole DR 40 mg tab(s) (PROTONIX) 40 mg ORAL DAILY (6 AM) ondansetron 8 mg tab(s) (ZOFRAN) 8 mg ORAL q 8 H PRN diphenhydrAMINE 50 mg (BENADRYL) 50 mg ORAL/FEEDING TUBE q 6 H PRN hydrocortisone sodium succinate (PF) 100 mg injection (Solu- CORTEF) 100 mg INTRAVENOUS q 4 H PRN diphenhydrAMINE 50 mg injection (BENADRYL) 50 mg INTRAVENOUS q 4 H PRN prochlorperazine 5 mg injection (COMPAZINE) 5 mg INTRAVENOUS q 6 H PRN dextrose 50% in water 25-50 mL syringe 12.5-25 g INTRAVENOUS PRN dextrose 40 % 15 g 15 g ORAL PRN glucagon 1 mg injection (GLUCAGEN) 1 mg SUBCUTANEOUS PRN Objective PHYSICAL EXAM: BP 138/71 Pulse 100 Temp 36.9 ?C (98.4 ?F) (Oral) Resp 18 Ht 160 cm (5' 3) Wt 100.3 kg (221 lb 1.9 oz) SpO2 95% BMI 39.17 kg/m? General: Sitting up in bed, NAD Cardiac: S1 S2 audible Respiratory: CTAB anteriorly, on O2 per NC Abdominal/GI: soft Extremity: 1+ edema bilateraly Skin: warm, well perfused Pulse/vascular exam: right radial left radial palpable DATA: Diagnostic tests reviewed for today's visit: Most recent labs Component Latest Ref Rng AND Units 11/25/2017 WBC 3.70 - 11.00 k/uL 6.14 RBC 3.90 - 5.20 m/uL 3.22 (L) Hemoglobin 11.5 - 15.5 g/dL 10.8 (L) Hematocrit 36.0 - 46.0 % 33.9 (L) MCV 80.0 - 100.0 fL 105.3 (H) MCH 26.0 - 34.0 pG 33.5 MCHC 30.5 - 36.0 g/dL 31.9 RDW-CV 11.5 - 15.0 % 21.8 (H) Platelet Count 150 - 400 k/uL 135 (L) MPV 9.0 - 12.7 fL 12.2 Absolute nRBC <0.01 k/uL <0.01 PT Sec 9.7 - 13.0 sec 14.3 (H) PT INR 0.9 - 1.3 1.4 (H) APTT 23.0 - 32.4 sec 55.2 (H) Component Latest Ref Rng AND Units 11/24/2017 Glucose 74 - 99 mg/dL 74 BUN 7 - 21 mg/dL 41 (H) Creatinine 0.58 - 0.96 mg/dL 1.33 (H) Sodium 136 - 144 mmol/L 141 Potassium 3.7 - 5.1 mmol/L 4.0 Chloride 97 - 105 mmol/L 100 CO2 22 - 30 mmol/L 27 Anion Gap 9 - 18 mmol/L 14 Calcium 8.5 - 10.2 mg/dL 8.8 eGFR- 57 eGFR-All Other Races . 48 Impression/Recommendations 27 year old female with PMH of hepatic vein thrombosis, caval/iliofemoral DVT, 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 Hospital course further c/b severe thrombocytopenia and CAPRICE requiring dialysis. AC was held x 4 weeks, now resumed yesterday. Hematology following , patient has received apheresis, Nplate and cytoxan currently being held. She is currently on bival to coumadin bridge. Renal function has recovered. She is currently on bival to coumadin bridge. Hemoglobin stable and platelets continue to uptrend with no clinical signs of bleeding. ? Now w/ new c/o's LUQ pain yesterday; better today-- staff, abdominal CT scan prelim report, shows interval decrease in size of hematoma ? ?Estimated Creatinine Clearance: 71.2 mL/min (A) (based on SCr of 1.33 mg/dL (H)). Day 3 of coumadin, INR 1.4 (2.0-3.0) likely bival effect, down from 1.6 on 11/24 5mg of coumadin x 1 tonight aPTT 55.2 (46-65) therapeutic, continue with 0.1mg/kg/hr and repeat aPTT tomorrow morning. Please call [facility] [phone] if not within therapeutic range Bival and Coumadin should overlap for a minimum of 5 days and until INR is therapeutic before Bival can be discontinued. aPTTs, CBC/INR daily in house Duration of treatment: fpc Upon discharge, INR management to be resumed by Vascular Medicine Patient to be seen and discussed w/ Dr. Roman, Staff Saran Pan Fellow SIGNATURE: Morteza Pan MD PATIENT NAME: Paloma Cannon DATE: November 25, 2017 TIME: 7:53 AM PAGER/CONTACT #: [phone] [facility] STAFF PHYSICIAN NOTE OF PERSONAL INVOLVEMENT IN CARE I have reviewed the documentation obtained and documented by Dr. Pan and have reviewed and updated the problem list as appropriate. I have personally performed a kytn-ca-zfar assessment of the patient and I have discussed the case and management of the patient's care. STAFF PHYSICIAN: Afia Roman MD DATE OF SERVICE: November 25, 2017 TIME OF SERVICE: 1:54 PM CBC Collected: 11/25/2017 Status: F Source: [place] 4:29 AM [facility] REPOSITORY TYPE CODE TESTS RESULT OUT OF REFERENCE UNITS RANGE LAB WBC 3.70-11.00 k/uL WBC 6.14 LAB RBC 3.90-5.20 m/uL Low RBC 3.22 LAB HGB 11.5-15.5 g/dL Low Hemoglobin 10.8 LAB HCT 36.0-46.0 % Low Hematocrit 33.9 LAB MCV 80.0-100.0 fL MCV High 105.3 LAB MCH 26.0-34.0 pG MCH 33.5 LAB MCHC 30.5-36.0 g/dL MCHC 31.9 LAB RDWCV 11.5-15.0 % RDW-CV High 21.8 LAB PLTCT 150-400 k/uL Low Platelet Count 135 LAB MPV 9.0-12.7 fL MPV 12.2 LAB ABSNUC <0.01 k/uL Absolute nRBC <0.01 Performed By: #### CBC, PT, PTT #### [facility] [address] [place], [place] [address] PROTIME Collected: 11/25/2017 Status: F Source: [place] 4:29 AM [facility] REPOSITORY TYPE CODE TESTS RESULT OUT OF RANGE REFERENCE UNITS LAB PSEC 9.7-13.0 sec High PT Sec 14.3 LAB INR 0.9-1.3 High PT INR 1.4 Result Comment: Vitamin K Antagonist (VKA) Therapeutic Range: INR 2 to 3 (Target INR of 2.5) Note: For patients treated with VKA drugs, such as warfarin, the [place] [employer] 2012 Guideline recommends a therapeutic INR range of 2 to 3 (target INR of 2.5). This recommendation includes high-risk patients with antiphospholipid syndrome with previous arterial or venous thromboembolism, current-generation mechanical or bioprosthetic aortic heart valve replacement. Note: Patients with mechanical aortic valve replacement and additional risk factors for thromboembolic events (atrial fibrillation, previous thromboembolism, LV dysfunction, hypercoagulable conditions) or an older generation mechanical AVR (i.e., ball in-Cage) or any mechanical MVR should have a INR therapeutic range of 2.5 to 3.5 (target INR of 3). Michael PLASENCIA, et al. Chest 2012, 141:7S-47S Diogenes RESENDIZ, et al. [facility] 2017, 70: 252-289 Performed By: #### CBC, PT, PTT #### [facility] [address] [place], [place] [address] APTT Collected: 11/25/2017 Status: F Source: [place] 4:29 AM [facility] REPOSITORY TYPE CODE TESTS RESULT OUT OF RANGE REFERENCE UNITS LAB APTT 23.0-32.4 sec High APTT 55.2 Result Comment: Unfractionated Heparin Therapeutic Ranges: Standard Heparin Nomogram: 53 to 78 seconds (anti-Xa level of 0.3 to 0.7 U/ml) Low Dose/ACS Nomogram: 49 to 67 seconds (anti-Xa level of 0.2 to 0.5 U/ml) Stroke Treatment Nomogram: 49 to 67 seconds (anti-Xa level of 0.2 to 0.5 U/ml) Note: The APTT therapeutic range has been determined for the current lot of laboratory APTT reagent in use throughout the [facility]. Performed By: #### CBC, PT, PTT #### [facility] [address], [place] [address] THERAPY NT Observed: 11/24/2017 Status: COMPLETED Source: [place] 3:06 PM [facility] REPOSITORY HNO ID: [id number] Author: Tamiko (PtDevonte Son Service: Physical Therapy Author Type: Physical Therapist Type: Therapy (PT/OT/Speech/Resp) Filed: 11/24/2017 3:12 PM Note Text: Physical Therapy Wound/Lymph Treatment SERVICE DATE: 11/24/2017 SERVICE TIME: 1433 to 1459 [facility]: [facility] Recommended Discharge Disposition Comments: will require further assessment Anticipated Discharge Needs: Undetermined PT Recommendations to Nursing: With assist of 1 person;Transfer to/from chair;OOB for Meals 6 Clicks Score: 14 Skin Condition: BLE lymphedema Frequency of Dressing Change:Daily?- compression wraps to be worn during the day hours ?Physical Therapy to Perform Dressing Change: 4x/week to be coordinated with nursing ?Nursing to Perform Dressing Change:1x/day Monday and Monday Dressing/Treatment Type: See Clinical Documentation report for specific dressing information. ASSESSMENT : Pt continues to tolerate compression for up to 8-12 hours daily and circumferential measurements are stable. Will consider adding compression above the knee next week on a trial basis and monitor for changes. Pt is physically unable to perform compression wrapping therefore will need to perform training with a family member. ?Plan to continue with current POC at this time. Patient Disposition at Start of Session: Supine in Bed;Bed Alarm Patient Disposition at End of Session: Supine in Bed;Call Wagoner in Reach;Bed Alarm Tolerance Limited By Fatigue Physical Therapy Problem List: Cognitive Deficit;Education Deficit;Decreased Activity Tolerance;Decreased Strength;Functional Mobility Impairment Patient /Caregiver Goals: Unique to general PT Goals for Plan of Care: 1. ?Decongestion of BLE?with girth measurements decreased by 2-4?cm per segment to increase level of independence with functional mobility and ADL's, decrease pain, decrease recurrence of infection, improved range of motion and allow appropriate fit in compressive garment. ?? 2. ??Pt and/or caregiver will demonstrate compliance in knowledge of lymphedema precautions including meticulous skin and nail care to reduce risk of infection and further exacerbation. 3. ??Pt and/or caregiver will demonstrate the correct method of Lymphatic Bandaging/compression technique and independent understanding of the principles and theory of compression 4. ??Pt and/or caregiver will be independent in their exercise program to enchance Lymphatic flow and decongestion of the affected body parts 5. Patient/ Caregiver will be able to demonstrate competence with offloading recommendations and pressure relieving strategies 6. Patient/ Caregiver will be able to state the signs and symptoms of infection Progress Toward Goals: Progressing as expected Due To: medical status Rehab Potential: Fair PLAN: Treatment Frequency (times per week): 4 Current admission Treatment Interventions: Education;Self Care / Home Management;Joint Mobility;Strengthening;Functional Mobility Training;Balance Training;Edema Management;Pain Management Plan of Care developed with: Patient TREATMENT INTERVENTIONS: Interventions Provided: Manual Therapy (64165) Manual Therapy (21952) Treatment Minutes: 26 2 units Skilled Intervention: Manual skills to improve joint mobility, range of motion, and decrease pain. Educated patient on the following aspect of Complete Decongestive Therapy (CDT): 1.??Compressive Therapy: Discussed rationale for compression garment and bandaging Instructed in proper technique for compression wrapping Skilled interventions: - Increase lymaphtic fluid dynamics - Increase skin extensibility - Utilized anatomy knowledge of the therapist, and assessment of patient's response to intervention. ? Manual Compression performed: 1. ?Skin inspected and?cleansed thoroughly 2. ?Applied lotion?to BLE? 3. ?Applied 1 surgigrip?+ 1 ABD pad at the foot/ ankle + 1?surepress wraps applied at 50% tension?with a 50% overlap (deferred ankle padding today). ? Spoke at length with pt re: when to loosen or remove the bandages (i.e.: in the event that pain becomes a limiting factor or pt experienced new onset SOB or worsening of respiratory status). Pt verbalized understanding. ? Education: 1. ?Discussed with patient and nursing the risks and benefits of compression therapy and how compression is indicated in this case. 2. ?Reviewed?proper technique for compression wrapping.? ?3. Issued new surgigrip size H for BLE to be used under surepress. ? Total Timed Code Treatment Minutes: 26 Total Treatment Time (minutes): 26 SUBJECTIVE: Current Hospital Course: Chart reviewed and no significant medical updates relevant to therapy were noted Patient Report: Pt with no new complaints 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 Entry To Home: No Stairs Number Of Stairs To Bed/Bath: 0 Tub/Shower Type: walk in shower Equipment Owned: Commode-Raised;Grab Bars-Shower;Grab Bars-Toilet;Shower Chair;Home Oxygen Prior Functional Level: Required Assistance Assistance Required With: Cleaning;Laundry;Meals;Shopping;Transportation Prior Wound Care: Other: See Comment (unable to don compression stockings (I)) OBJECTIVE: Location Date: 11/17/17 Date: 11/22/17 Date: 11/23/17 Right Left Right Left Right Left Metatarsal Heads 25.5cm 24cm 24cm 23cm 23.5cm 22cm Ankle ([place]) 24.5cm 24.5cm 21cm 22.25cm 24cm 24cm 10cm above malleoli 28.5cm 28.25cm 24cm 23cm 28cm 27cm 20cm above malleoli 44cm 40.5cm 36.5cm 34.5cm 43.5cm 39.5cm 30cm above malleoli 49cm 44.5cm 47cm 44cm 45cm 45.5cm ? Location Evaluation Date: ? 08/01/17 Date: ? 11/03/17 Date: 11/16/17 Right Left Right Left Right Left Metatarsal Heads 24cm 22.5cm 24cm 24cm 24cm 24.5cm Ankle ([place]) 23.25cm 22.5cm 24cm 25cm 24.5cm 25cm 10cm above malleoli 28.5cm 28cm 30cm 27.5cm 31cm 29.5cm 20cm above malleoli 42cm 43.25cm 42cm 40cm 46cm 42cm 30cm above malleoli 45.5cm 41.5cm 46cm 47cm 46cm 44.5cm ? ? LLE Circumferential Measurements: Metatarsal Heads;Ankle;10 cm;20 cm;30 cm Left Metatarsal Heads: 22cm Left Ankle: 24cm Left Lower Extremity 10cm: 27cm Left Lower Extremity 20cm: 39.5cm Left Lower Extremity 30cm: 45.5cm RLE Circumferential Measurements: Metatarsal Heads;Ankle;10 cm;20 cm;30 cm Right Metatarsal Heads: 23.5cm Right Ankle: 24cm Right Lower Extremity 10cm: 28cm Right Lower Extremity 20cm: 43.5cm Right Lower Extremity 30cm: 45cm Sensation Sensation: Right Lower Extremity;Left Lower Extremity Right Lower Extremity Sensation: Light Touch RLE Light Touch: Intact Left Lower Extremity Sensation: Light Touch LLE Light Touch: Intact Circulation Pulses: Right Dorsalis Pedis;Left Dorsalis Pedis Right Dorsalis Pedis Pulse: (unable to palpate due to lymphedema; present via doppler) Left Dorsalis Pedis Pulse: (unable to palpate due to lymphedema; present via doppler) Capillary Refill: Right Lower Extremity;Left Lower Extremity Right Lower Extremity Capillary Refill: Intact Left Lower Extremity Capillary Refill: Intact See Clinical Documentation report for Skin Documentation. Current Functional Mobility Assist Level Additional Information Rolling Contact Guard Assistance Supine to Sit Contact Guard Assistance Sit to Supine (up in chair) Scooting Contact Guard Assistance Sit to Stand Moderate Assistance (to minimal assist) Stand to Sit Minimal Assistance Bed to Chair Minimal Assistance Toilet/Commode Minimal Assistance Gait Minimal Assistance Gait Device: Wheeled Walker Gait Distance (feet): 4' x 2, 25', 40' General Gait Deviations: Delmy decreased;Flexed trunk posture;Wide base of support;Step length decreased;Lateral sway increased Balance: Static Sitting;Dynamic Sitting;Static Standing;Dynamic Standing Static Sitting Balance: Stand By Assistance Dynamic Sitting Balance: Contact Guard Assistance Static Standing Balance: Minimal Assistance Dynamic Standing Balance: Minimal Assistance Please see discipline specific clinical documentation flowsheet for complete details for this therapy evaluation/treatment. SIGNATURE: Tamiko Son PT PATIENT NAME: Paloma Cannon DATE: November 24, 2017 TIME: 3:06 PM PAGER/CONTACT #: [phone] THERAPY NT Observed: 11/24/2017 Status: COMPLETED Source: [place] 2:58 PM [facility] REPOSITORY HNO ID: [id number] Author: Yue Uriostegui Service: Occupational Therapy Author Type: Occupational Therapist Type: Therapy (PT/OT/Speech/Resp) Filed: 11/24/2017 2:58 PM Note Text: OCCUPATIONAL THERAPY MISSED VISIT SERVICE DATE: 11/24/2017 SERVICE TIME: 1453 to 1453 ROOM: [facility] Attempted Treatment. Patient not seen due to Another service at bedside- working with PT. Will re-attempt as able. SIGNATURE: JERMAINE Maldonado/Allie PATIENT NAME: Paloma Cannon DATE: November 24, 2017 TIME: 2:58 PM PAGER/CONTACT #:[phone] PROGRESS Observed: 11/24/2017 Status: COMPLETED Source: [place] 2:37 PM [facility] REPOSITORY HNO ID: [id number] Author: Ros Wayne Service: General Internal Medicine Author Type: Physician Type: Progress Notes Filed: 11/24/2017 9:05 PM Note Text: RAF Terry PROGRESS NOTE For questions regarding this patient today please page [phone] After 5 pm on weekdays and 3pm on weekends and holidays please page documentation clerk pager [phone] SERVICE DATE: 11/24/2017 SERVICE TIME: 2:41 PM INTERVAL HISTORY: - No events overnight - started coumadin yesterday evening. - patient complained of worsened pain in her LUQ and left retroperitoneal area. CT abdomen/pelvis this morning revealed decrease in hematoma size. - Uoutput: 850cc - PMANDR acute rehabilitation - per VM, Bival and Coumadin should overlap for a minimum of 5 days and until INR is therapeutic before Bival can be discontinued. PLAN FOR TODAY - coumadin 2.5 mg tonight as INR domi quickly with bivalirudin + coumadin - c/w torsemide 20 mg qday - desaturation study required prior to discharge - N-plate this week, per Heme - next apheresis 11/27 MEDICATIONS: Current hospital medications: warfarin 2.5 mg tab(s) (COUMADIN) 2.5 mg ORAL ONCE - WARFARIN warfarin order for discharge OTHER PRN hyoscyamine sublingual 0.25 mg tab(s) (LEVSIN SL) 0.25 mg SUBLINGUAL TID PRN oxyCODONE IR 5 mg tab(s) (ROXICODONE) 5 mg ORAL/FEEDING TUBE q 4 H PRN lactulose 20 g CUP (DUPHALAC, CONSTULOSE) 20 g ORAL q 2 H [id number] 10 mL oral liquid (BMX 1:1:1) 10 mL ORAL q 2 H PRN bivalirudin 250 mg in D5W 250 mL (ANGIOMAX) 0.1 mg/kg/hr INTRAVENOUS CONTINUOUS gabapentin 400 mg cap(s) (NEURONTIN) 400 mg ORAL TID cyclobenzaprine 10 mg tab(s) (FLEXERIL) 10 mg ORAL AT BEDTIME cyclobenzaprine 10 mg tab(s) (FLEXERIL) 10 mg ORAL BID PRN NIFEdipine ER 60 mg tab(S) (PROCARDIA XL) 60 mg ORAL BID predniSONE 40 mg tab(s) (DELTASONE) 40 mg ORAL/FEEDING TUBE DAILY HYDROmorphone 0.3 mg in NaCl 0.9% (DILAUDID) 0.3 mg INTRAVENOUS q 6 H PRN acetaminophen 1,000 mg tab(s) (TYLENOL) 1,000 mg ORAL TID torsemide 20 mg tab(s) (DEMADEX) 20 mg ORAL DAILY 0.9% NaCl 10 mL 10 mL INTRAVENOUS q 12 H 0.9% NaCl 20 mL 20 mL INTRAVENOUS PRN sodium citrate 4% 3-6 mL catheter lock 3-6 mL INTRALUMINAL APHERESIS PRN albuterol 2.5 mg /3 mL (0.083 %) 2.5 mg (PROVENTIL) 2.5 mg INHALATION q 4 WEEKS pentamidine 300 mg nebulizer solution (NEBUPENT) 300 mg INHALATION q 4 WEEKS carvedilol 25 mg tab(s) (COREG) 25 mg ORAL/FEEDING TUBE BID w MEALS lidocaine 5 % 1 Patch (LIDODERM) 1 Patch TRANSDERMAL DAILY lidocaine patch - REMOVE OTHER AT BEDTIME lidocaine - VERIFY PATCH OTHER q 8 H polyethylene glycol 3350 17 g packet (MIRALAX, GLYCOLAX) 17 g ORAL/FEEDING TUBE DAILY docusate sodium 100 mg cap(s) (COLACE) 100 mg ORAL BID senna 8.6 mg tab(s) (SENOKOT) 8.6 mg ORAL/FEEDING TUBE BID pantoprazole DR 40 mg tab(s) (PROTONIX) 40 mg ORAL DAILY (6 AM) ondansetron 8 mg tab(s) (ZOFRAN) 8 mg ORAL q 8 H PRN diphenhydrAMINE 50 mg (BENADRYL) 50 mg ORAL/FEEDING TUBE q 6 H PRN hydrocortisone sodium succinate (PF) 100 mg injection (Solu- CORTEF) 100 mg INTRAVENOUS q 4 H PRN diphenhydrAMINE 50 mg injection (BENADRYL) 50 mg INTRAVENOUS q 4 H PRN prochlorperazine 5 mg injection (COMPAZINE) 5 mg INTRAVENOUS q 6 H PRN dextrose 50% in water 25-50 mL syringe 12.5-25 g INTRAVENOUS PRN dextrose 40 % 15 g 15 g ORAL PRN glucagon 1 mg injection (GLUCAGEN) 1 mg SUBCUTANEOUS PRN HOME MEDICATIONS: cyclophosphamide (CYTOXAN) 50 mg capsule Take 150 mg by mouth once daily. diphenhydrAMINE (BENADRYL) 50 mg capsule Take 1 capsule by mouth every 6 hours as needed for Itching/Rash. gabapentin (NEURONTIN) 100 mg capsule Take 1 capsule by mouth three times daily for 7 days. ondansetron (ZOFRAN, HYDROCHLORIDE,) 8 mg tablet Take 8 mg by mouth every 8 hours as needed for Nausea/Vomiting. pantoprazole DR (PROTONIX) 40 mg tablet Take 40 mg by mouth daily at bedtime. sulfamethoxazole-trimethoprim (BACTRIM DS) 800-160 mg per tablet Take 1 tablet by mouth every Monday,Monday,Monday. fluticasone (FLONASE) 50 mcg/actuation nasal spray Use 1-2 Sprays in each nostril once daily as needed for Cold/Allergy Symptoms (starting in allergy season). senna 8.6 mg tab Take 1 tablet by mouth twice daily as needed. PHYSICAL EXAM: VITAL SIGNS Patient Vitals for the past 24 hrs: BP Temp Temp src Pulse Resp SpO2 11/24/17 1058 147/75 36.7 ?C (98.1 ?F) Oral 96 16 92 % 11/24/17 0546 139/78 36.8 ?C (98.3 ?F) Oral 97 16 89 % 11/24/17 0149 150/87 36.9 ?C (98.4 ?F) Oral 96 18 92 % 11/23/17 2142 139/83 36.9 ?C (98.4 ?F) Oral 101 20 93 % 11/23/17 1800 145/68 37.4 ?C (99.3 ?F) Oral 95 20 - BP 147/75 Pulse 96 Temp 36.7 ?C (98.1 ?F) (Oral) Resp 16 Ht 160 cm (5' 3) Wt 100.3 kg (221 lb 1.9 oz) SpO2 92% BMI 39.17 kg/m? Temp (24hrs), Av.9 ?C (98.5 ?F), Min:36.7 ?C (98.1 ?F), Max:37.4 ?C (99.3 ?F) INTAKE/OUTPUT Intake/Output Summary (Last 24 hours) at 11/24/17 1441 Last data filed at 11/24/17 1255 Gross per 24 hour Intake 780 ml Output 600 ml Net 180 ml General: Alert, oriented, cooperative.?In no acute distress. 2L NC Skin:?Chronic skin changes on bilateral LE below the knee?due to lymphedema HEENT: EOM. Pupils equal, round and reactive Cardiovascular: RRR. No murmur Lungs: Minimal crepitations at the bases than prior Abdomen: Soft, TTP in LUQ, no masses or organomegaly Extremities: 2+ peripheral edema but improving,?+2 DP pulses bilaterally Neurological: Moving all extremities freely? LAB DATA: CBC, Coags, BMP, Mg, Phos Recent Labs 11/24/17 0653 11/23/17 0855 11/23/17 0428 11/22/17 1245 11/22/17 0450 WBC 5.78 5.47 -- -- -- 4.12 HB 11.2* 11.8 -- -- -- 9.7* HCT 35.6* 37.1 -- -- -- 30.0* PLT 113* 108* -- -- -- 59* INR 1.6* -- -- -- 1.1 -- APTT 54.9* 48.3* 46.9* < > 23.4 -- NA 141 -- -- -- -- -- K 4.0 -- -- -- -- -- CHLOR 100 -- -- -- -- -- CO2 27 -- -- -- -- -- BUN 41* -- -- -- -- -- CREAT 1.33* -- -- -- -- -- GLUC 74 -- -- -- -- -- CA 8.8 -- -- -- -- -- PT INR Date Value Ref Range Status 11/24/2017 1.6 (H) 0.9 - 1.3 Final Comment: Vitamin K Antagonist (VKA) Therapeutic Range: INR 2 to 3 (Target INR of 2.5) Note: For patients treated with VKA drugs, such as warfarin, the [employer] 2012 Guideline recommends a therapeutic INR range of 2 to 3 (target INR of 2.5). This recommendation includes high-risk patients with antiphospholipid syndrome with previous arterial or venous thromboembolism, current-generation mechanical or bioprosthetic aortic heart valve replacement. Note: Patients with mechanical aortic valve replacement and additional risk factors for thromboembolic events (atrial fibrillation, previous thromboembolism, LV dysfunction, hypercoagulable conditions) or an older generation mechanical AVR (i.e., ball in-Cage) or any mechanical MVR should have a INR therapeutic range of 2.5 to 3.5 (target INR of 3). Michael PLASENCIA, et al. Chest 2012, 141:7S-47S Diogenes RA, et al. [facility] 2017, 70: 252-289 ASSESSMENT AND PLAN: Active Hospital Problems Diagnosis - Retroperitoneal hematoma Retroperitoneal bleed: s/p 7 units PRBCs s/p IR emobolization of left L3 artery at [facility] on 10/23 IR embolization of left L2 and L3 arteries on 10/26 CT abd/pel 10/31: RP bleed stable when compared to previous imaging from 10/27 LDH 1730, haptoglobin <10, Tbili 1.3- concern for hemolysis as well. Per heme, thrombocytopenia and anemia likely related to cytoxan with stressed BM Cytoxan reduced to 75 mg daily Plan: Continue to monitor HANDH and transfuse PRBC if Hb<7 or symptomatic Continue to hold Anticoagulation until approved by Vascular medicine- initially recommended holding AC for at least 14 days since last bleeding. 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 Has received stenting of IVC and iliacs along with endograft of IVC. 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 C/B extensive RP bleed s/p L2, L3 embolization. N-plate 11/09, 11/13 Received Apheresis on 11/03, 11/13 (heme following); patient is on [id number] (Mondays) schedule outpatient 11/22: starting bivalirudin Plan: Holding Cytoxan 75 mg in setting of worsening thrombocytopenia Continue prednisone 40 mg with bactrim ppx Appreciate hematology and VM recs c/w with bivalirudin and start coumadin bridge. Bivalirudin and coumadin should overlap for a minimum of 5 days until INR is therapeutic before Bivalirudin can be discontinued - CAPRICE (acute kidney injury) (HCC) CAPRICE on CKD III, 2/2 contrast, now requiring dialysis First HD at [facility] on 10/25 with tunneled dialysis catheter placement followed by [address] Abdomen/pelvis from 10/26 showed occlusion of B/L renal veins, outflow not appreciated- could be attributing to CAPRICE and CKD Bladder scan Plan: Nephrology following- appreciate recommendations Daily BMPs to watch K, Na and phosphorus levels Renal dosing of medication Avoid excess fluids and nephrotoxic drugs - HTN (hypertension) Mildly decreased systolic function, diastolic function indeterminate on 10/13/17 ECHO. 10/28: Run of SBP in 200s overnight (likely d/t pain), given hydralazine however still consistently in 170s-180s 10/29: Still hypertensive, required 4 doses of hydralazine overnight Switched Amlodipine 10 mg to nifedipine 30mg on 11/10, and increased Coreg from 6.25 to 25 mg BID Plan: Nifedipine 60 mg BID and keeping Coreg at current dosing, can up titrate coreg if tolerating well (HR currently 80-100) Can consider adding PRN hydralazine for SBP>180 mm Hg, - Diffuse pulmonary alveolar hemorrhage Currently stable, no new episodes Has had 6 admissions recently for acute respiratory failure requiring mechanical ventilation Cytoxan was reduced from 150 to 75 mg due to concern for BM toxicity; renally dosed Decreased prednisone from 60 to 40 mg Plan: Continue to monitor respiratory status Continue oxygen therapy at 2L NC Holding Cytoxan in setting of worsening thrombocytopenia Continue Prednisone 40 mg daily Switched bactrim to pentamidine for ppx on 11/12 Will reach out to outpatient provider regarding switch to pentamidine from bactrim, per heme recs - Moraxella catarrhalis pneumonia (HCC) Had respiratory cultures growing Moraxella catarrhalis Received ceftriaxone 10/27-11/03- 7 days therapy WBC trended down from 21 K to 12K. Currently at baseline O2 requirement but still slightly tachypneic Completed course of ceftriaxone. Plan: Continue to monitor respiratory status closely BPH per RT Incentive spirometry - Peripheral neuropathy - History of heparin-induced thrombocytopenia Avoid all heparin products. - Weakness of left leg 11/02 Left leg weakness/parasthesia Likely related to lumbar nerve compression from large retroperitoneal hematoma Neurology was following, recommended no further intervention On gabapentin renally dosed. 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 Acute rehabilitation center This note is not final until staffed by the attending physician and authenticated by responsible provider. SIGNATURE: Olga Reyez MD PATIENT NAME: Paloma Cannon DATE: November 24, 2017 TIME: 2:41 PM PAGER: [phone] RAF Terry ATTENDING NOTE: Chart reviewed, patient seen and examined on 11/24 at 2pm and fernandes elements of the history and physical were discussed in detail and confirmed with the resident team. I have reviewed the above note, examined the patient and agree with the documented findings and plan of care as listed in Dr Reyez's note. Any addendums above are in bold text. 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 due to obstipation Thrombocytopenia improved !!! + ENDPLATE 11/09?+ 11/13 + DC?of Cytoxan (on 11/09) + Bactrim (on 11/12).. platelet count today is 113K !!!! Pain in L LS area is improved HTN controlled + Resolved?Moraxella catarrhalis HCAP (?Ceftriaxone 10/28 to 11/03) Fluid overloaded but improving since Demadex resumed on 11/13 CARPICE on CKD on admission:?renal function is currently stable Chronic LE edema due to chronic DVT, doing better with LE wraps ?? ? Plan: Cont Bival Coumadin 2.5mg today Enhance current bowel regimen Add Levsin 0.125mg prn for abd cramps No need for addtl ENDPLATE + PLEX on 11/27 + To acute rehab soon ? Dr Thomas Esteban to assume care on 11/25 Ros Wayne MD FACP Attending, pager [phone] PT ED Observed: 11/24/2017 Status: COMPLETED Source: [place] 1:58 PM [facility] REPOSITORY HNO ID: [id number] Author: Estela Lester (Pharmacist) Service: Pharmacy Author Type: Pharmacist Type: Patient Education Filed: 12/01/2017 1:27 PM Note Text: PHARMACY WARFARIN EDUCATION Patient Name: Paloma Cannon Account #: Data Unavailable Admission Date: 10/25/2017 11:13 PM Date of Contact: November 24, 2017 Time of Contact: 1:58 PM Patient new to warfarin? No: Previous (home) dosage: varied between 5 mg and 7.5 mg daily depending on PLEX Outpatient follow-up plan: Other: [facility] (Estela Lester, PharmD [id number]) Indication for warfarin: deep vein thrombosis (DVT) Target INR range: 2.0 - 3.0 (Target 2.5) Patient received full warfarin education. Initial patient education included: * Reason for taking warfarin * How warfarin works * What the INR test is, frequency of testing, and the importance of monitoring warfarin with scheduled PT/INR blood draws or finger sticks * Information about plans to monitor warfarin post-discharge was reviewed * When to take warfarin and what to do if a dose is missed * Identifying tablet(s) and to notify the doctor/anticoagulation clinic if there is a change in tablet color, shape, or markings * Drug interactions (Rx, OTC, herbal) and importance of notifying the doctor/anticoagulation clinic with any changes. * Do not take or discontinue any medication or over the counter medication except on the advice of the physician or pharmacist because certain medications can affect the PT/INR. * Potential duration of therapy * Signs/symptoms of bleeding and what to do if they occur because warfarin increases the risk of bleeding * Precautionary measures to decrease trauma/bleeding * Signs/symptoms of thrombosis and what to do if they occur * Need to limit or avoid EtOH consumption * Dietary considerations discussing that a ?consistent amount? of foods with vitamin K rather than avoidances should be advised and to avoid major changes in dietary habits, or notify health professional before changing habits because diet can affect the PT/INR * Carrying identification * Importance of notifying healthcare provider and [facility] when hospitalizations occur and when another healthcare provider has asked them to stop/hold warfarin before any procedure * Importance of notifying all healthcare providers they are taking warfarin * Use of control measures if applicable * The importance of taking warfarin as instructed and the potential ramifications of non- compliance were explained to the patient. The patient was provided ?Understanding the Anticoagulant Medication Warfarin? education booklet which includes the following : compliance Issues, dietary advice, follow-up with physician, follow- up monitoring, potential adverse drug reactions and interactions. READINESS TO LEARN COGNITIVE ABILITY: Alert and oriented MOTIVATION TO LEARN: Eager Interested FAMILY SUPPORT: Unable to assess - Family not present INSTRUCTION PROVIDED TO: Patient PATIENT LEARNS BEST BY: Unable to Assess FACTORS AFFECTING LEARNING: None PHYSICAL LIMITATIONS AFFECTING LEARNING: None LEARNING RESPONSE DIAGNOSIS: SEE INDICATION(S) ABOVE PATIENT/FAMILY RESPONSE: Verbalizes understanding of: The signs and symptoms of a worsening condition that warrant a call to the physician. The correct actions to take to manage symptoms associated with his/her disease/illness. The physical restrictions and recommendations after discharge from the hospital. Accurate knowledge of prescribed medication prior to discharge. The side effects associated with the medication that warrant a call to the physician. Diet / weight monitoring METHOD OF INSTRUCTION: Verbal instruction SUPPLEMENTAL MATERIAL PROVIDED: patient denied warfarin book FURTHER RECOMMENDATIONS (if any) none EVIDENCE OF LEARNING Outcomes met: Describes/able to restate information and Indicates understanding of topic Outcomes not met: N/A Outpatient Follow-up: Peyman ISBELL (Estela Lester, PharmD [id number]) Nimo Swanson, Pharmacist CONSULT PROG Observed: 11/24/2017 Status: COMPLETED Source: [place] 12:56 PM [facility] [place] REPOSITORY HNO ID: [id number] Author: Justina Pollard (Pa) Service: Hematology Author Type: Physician Satellite Tv Technician Installer Type: Consult Progress Note Filed: 11/24/2017 4:22 PM Note Text: CONSULT PROGRESS NOTE SERVICE DATE: 11/24/2017 CONSULTING SERVICE: Hematology Subjective INTERVAL HPI: PLT count improved to 113 K today. On bival with bridging to coumadin c/o LLQ today, CT abdomen done and showed interval decreased in size of known subacute left RP hematoma` Current hospital medications: warfarin 5 mg tab(s) (COUMADIN) 5 mg ORAL DAILY - WARFARIN [id number] 10 mL oral liquid (BMX 1:1:1) 10 mL ORAL q 2 H PRN bivalirudin 250 mg in D5W 250 mL (ANGIOMAX) 0.1 mg/kg/hr INTRAVENOUS CONTINUOUS gabapentin 400 mg cap(s) (NEURONTIN) 400 mg ORAL TID cyclobenzaprine 10 mg tab(s) (FLEXERIL) 10 mg ORAL AT BEDTIME cyclobenzaprine 10 mg tab(s) (FLEXERIL) 10 mg ORAL BID PRN NIFEdipine ER 60 mg tab(S) (PROCARDIA XL) 60 mg ORAL BID predniSONE 40 mg tab(s) (DELTASONE) 40 mg ORAL/FEEDING TUBE DAILY HYDROmorphone 0.3 mg in NaCl 0.9% (DILAUDID) 0.3 mg INTRAVENOUS q 6 H PRN acetaminophen 1,000 mg tab(s) (TYLENOL) 1,000 mg ORAL TID torsemide 20 mg tab(s) (DEMADEX) 20 mg ORAL DAILY 0.9% NaCl 10 mL 10 mL INTRAVENOUS q 12 H 0.9% NaCl 20 mL 20 mL INTRAVENOUS PRN sodium citrate 4% 3-6 mL catheter lock 3-6 mL INTRALUMINAL APHERESIS PRN albuterol 2.5 mg /3 mL (0.083 %) 2.5 mg (PROVENTIL) 2.5 mg INHALATION q 4 WEEKS pentamidine 300 mg nebulizer solution (NEBUPENT) 300 mg INHALATION q 4 WEEKS carvedilol 25 mg tab(s) (COREG) 25 mg ORAL/FEEDING TUBE BID w MEALS oxyCODONE IR 5-10 mg tab(s) (ROXICODONE) 5-10 mg ORAL/FEEDING TUBE q 4 H PRN lidocaine 5 % 1 Patch (LIDODERM) 1 Patch TRANSDERMAL DAILY lidocaine patch - REMOVE OTHER AT BEDTIME lidocaine - VERIFY PATCH OTHER q 8 H polyethylene glycol 3350 17 g packet (MIRALAX, GLYCOLAX) 17 g ORAL/FEEDING TUBE DAILY docusate sodium 100 mg cap(s) (COLACE) 100 mg ORAL BID senna 8.6 mg tab(s) (SENOKOT) 8.6 mg ORAL/FEEDING TUBE BID pantoprazole DR 40 mg tab(s) (PROTONIX) 40 mg ORAL DAILY (6 AM) ondansetron 8 mg tab(s) (ZOFRAN) 8 mg ORAL q 8 H PRN diphenhydrAMINE 50 mg (BENADRYL) 50 mg ORAL/FEEDING TUBE q 6 H PRN hydrocortisone sodium succinate (PF) 100 mg injection (Solu- CORTEF) 100 mg INTRAVENOUS q 4 H PRN diphenhydrAMINE 50 mg injection (BENADRYL) 50 mg INTRAVENOUS q 4 H PRN prochlorperazine 5 mg injection (COMPAZINE) 5 mg INTRAVENOUS q 6 H PRN dextrose 50% in water 25-50 mL syringe 12.5-25 g INTRAVENOUS PRN dextrose 40 % 15 g 15 g ORAL PRN glucagon 1 mg injection (GLUCAGEN) 1 mg SUBCUTANEOUS PRN Objective PHYSICAL EXAM: BP 147/75 Pulse 96 Temp (Src) 98.1 (Oral) Resp 16 Ht 5' 3 (1.60m) Wt 221 lb 1.9 oz (100.3kg) SpO2 92% BMI 39.18 kg/(m2). General: Alert, NAD. Heart/CV: ?Grossly RRR Lungs: CTA Abd: ?Soft, NT,ND Extremities/Skin: No rashes appreciated DATA: Component Latest Ref Rng AND Units 11/22/2017 11/23/2017 11/24/2017 WBC 3.70 - 11.00 k/uL 4.12 5.47 5.78 RBC 3.90 - 5.20 m/uL 2.89 (L) 3.55 (L) 3.43 (L) Hemoglobin 11.5 - 15.5 g/dL 9.7 (L) 11.8 11.2 (L) Hematocrit 36.0 - 46.0 % 30.0 (L) 37.1 35.6 (L) MCV 80.0 - 100.0 fL 103.8 (H) 104.5 (H) 103.8 (H) MCH 26.0 - 34.0 pG 33.6 33.2 32.7 MCHC 30.5 - 36.0 g/dL 32.3 31.8 31.5 RDW-CV 11.5 - 15.0 % 23.0 (H) 23.0 (H) 22.7 (H) Platelet Count 150 - 400 k/uL 59 (L) 108 (L) 113 (L) MPV 9.0 - 12.7 fL 13.3 (H) 12.9 (H) 12.4 Absolute nRBC <0.01 k/uL <0.01 0.02 (H) <0.01 Impression/Recommendations 27 y/o female?with PMHx of 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 Recent admission 10/13/17-10/23/17 for hemoptysis and SOB, requiring intubation, was in MICU for management of DAH. readmitted to MICU again for ?extensive left retroperitoneal hemorrhage?s/p IR guided intervention (initially on 10/23 at [facility] and 10/26 here at [facility]. ? # Antiphospholipid antibody syndrome -recent?home therapy : Prednisone 60 mg ( home dose 5 mg), Cytoxan 75 mg ( home dose 150 mg), pheresis QOW ?-Continue prednisone 40 mg o dialy ( SD 11/21) ?-Cytoxan stopped on 11/09 given persistent thrombocytopenia as this might he causing myelosuppression ?-Next PLEX due 11/27 ?-given N plate 2mcg/kg sq x1 on 11/09 , 3 mcg/kg on 11/13, and 4 mcg/kg on 11/17. No further doses planned at this time ?-PLT count has improved. started on bival with bridging to coumadin. Appreciate vascular medicine assistance ? ?#Extensive left retroperitoneal hemorrhage -likely secondary to anticoagulant -sp IR intevention on 10/23 and 10/26? -Hemoglobin has been stable ? #Abnormal hemolysis labs - with elevated LD, elevated retic, and an undetectable hapto. Hemoglobin has been stable. - ?Direct [place] is negative -ADAMTS 13 activity resulted at 56 % speaking against TTP -Abnormal hemolysis labs likely?related to resolving hematoma. ? ? SIGNATURE: Justina Pollard PA-C PATIENT NAME: Paloma Cannon DATE: November 24, 2017 TIME: 12:56 PM PAGER: [phone] CT ABD/PEL WO IVCON Observed: 11/24/2017 Status: F Source: [place] 10:20 AM [facility] REPOS[facility]ORY * * *Final Report* * * DATE OF EXAM: Nov 24 2017 10:20AM [facility] [place] [facility] 0531 - CT ABD/PEL WO IVCON / PROCEDURE REASON: Abd pain, unspecified * * * * Physician Interpretation * * * * EXAMINATION: CT ABDOMEN AND PELVIS WITHOUT IV CONTRAST CLINICAL HISTORY: Known retroperitoneal hemorrhage post embolization of L2-L3 lumbar arteries. Persistent abdominal pain and reported clinical concern for worsening hematoma. Hgb = 11.2 and 06:53 this morning; = 11.8 on 11/23/2017; = 9.7 on 11/22/2017. TECHNIQUE: Non-IV contrast imaging of the abdomen and pelvis was performed using standard technique, scanning from just above the dome of the diaphragm to the symphysis pubis. Unenhanced imaging is limited for the evaluation of some intra-abdominal and pelvic pathology. MQ: [id number]_3 Contrast: IV: None Oral: None. CT Radiation dose: Integrated Dose-length product (DLP) for this visit = 1091 mGy*cm. CT Dose Reduction Employed: Automated exposure control (AEC) COMPARISON: CT abdomen/pelvis 10/31/2017. RESULT: Abdomen / Pelvis: Retroperitoneum: Mild interval decrease in size of known left retroperitoneal hematoma, subacute attenuating currently 22.0 x 17.1 x 13.5 cm (previously 25.3 x 18.9 x 13.7 cm on 10/31/2017). Additional smaller predominantly lower attenuation perivesicular hematoma in the extraperitoneal pelvis is stable in size now 7.8 x 3.9 cm (previously 7.9 x 4.0 cm). No internal gas to suggest superimposed infection. Liver: Unremarkable. Biliary: S/p cholecystectomy. Spleen: No splenomegaly. Pancreas: Unremarkable. Adrenals: No mass. Kidneys: No calculus or hydronephrosis. Left kidney is displaced anteriorly by the left retroperitoneal hematoma. GI Tract: No bowel dilation. Normal appendix. Lymph Nodes: No lymphadenopathy. Mesentery/peritoneum: Mild mesenteric stranding is unchanged. No interval ascites or loculated collection. Vasculature: Endovascular stents in the IVC and bilateral iliac veins are stable. No aneurysmal dilation of the abdominal aorta. Extensive superficial soft tissue collaterals are present throughout the abdomen and pelvis likely related to chronic central venous occlusion. Embolization coils are present in the left lumbar artery distribution about L2 and L3. Pelvis: Partially decompressed urinary bladder minimally displaced rightward by extraperitoneal subacute hematoma component. No interval loculated collection. Bones/Soft Tissues: No suspicious or destructive osseous lesions. Diffuse subcutaneous stranding/edema is overall similar to prior. Lower thorax: Persistent , diffuse groundglass opacities at the lung bases are overall similar to the prior exam, nonspecific and may be related to edema, hemorrhage, or infection/inflammation. Previous left pleural effusion has resolved. IMPRESSION: INTERVAL DECREASE IN SIZE OF KNOWN SUBACUTE LEFT RETROPERITONEAL HEMATOMA. NO INTERVAL GAS TO SUGGEST INFECTION. NO SIGNIFICANT INTERVAL CHANGE OTHERWISE DETAILED. Practice Support Specialist: PSCB Transcribe Date/Time: Nov 24 2017 10:32A Dictated by : FANY SILVER MD This examination was interpreted and the report reviewed and electronically signed by: LYDIA FARIA DO on Nov 24 2017 12:44PM EST [id number] [id number] NT Observed: 11/24/2017 Status: COMPLETED Source: [place] 10:02 AM [facility] REPOSITORY HNO ID: [id number] Author: Indra Naqvi [facility] Service: Physical Therapy Author Type: Ancillary Specialist Type: Therapy (PT/OT/Speech/Resp) Filed: 11/24/2017 10:02 AM Note Text: Attestation signed by Jocelyn Coleman at 11/24/2017 5:08 PM I reviewed and agree with the documentation corresponding to this therapy visit. SIGNATURE: Jocelyn Coleman PT DATE: November 24, 2017 TIME: 5:08 PM PHYSICAL THERAPY MISSED VISIT SERVICE DATE: 11/24/2017 SERVICE TIME: 1002 to 1002 ROOM: [place] [address] Attempted Treatment. Patient not seen due to Test/Procedure (CT scan). SIGNATURE: Indra Woods PTA PATIENT NAME: Paloma Cannon DATE: November 24, 2017 TIME: 10:02 AM PAGER/CONTACT #: [phone] URINALYSIS WITH Collected: 11/24/2017 Status: F Source: [facility] 9:54 AM [facility] REPOSITORY TYPE CODE TESTS RESULT OUT OF RANGE REFERENCE UNITS LAB UCOL Yellow Color Yellow LAB [facility] Clear Clarity Clear LAB UGLUC Negative mg/dL Glucose, Urine Negative LAB UBIL Negative Bilirubin, Urine Negative LAB UKET Negative Ketones, Urine Negative LAB USPG 1.005-1.030 Specific [place], Ur 1.020 LAB UHGB Negative Abnormal Hemoglobin/Blood, 3+ Alert Ur LAB UPH 4.5-8.0 pH 6.0 LAB UPROT Negative mg/dL Protein, Abnormal Urine 100 Alert LAB UUROB Normal Urobilinogen Normal LAB UNITR Negative Nitrites Negative LAB ULKEST Negative Leukest Negative LAB UWBC 0-5 /HPF WBC 0-5 LAB URBC 0-3 /HPF RBC 0-3 LAB UCAST 0 /LPF Cast Abnormal SEE COMMENT Alert Result Comment: 1-3 Hyaline Performed By: #### UAWMIC #### [facility] [address] [address] TYPE AND SCREEN Collected: 11/24/2017 Status: F Source: [place] 9:45 AM [facility] REPOSITORY TYPE CODE TESTS RESULT OUT OF REFERENCE UNITS RANGE LAB %ABR B ABO/RH(D) POSITIVE LAB % Antibody POS Screen Performed By: #### TSCR #### [facility] [address] CONSULT PROG Observed: 11/24/2017 Status: COMPLETED Source: [place] 8:34 AM [facility] REPOSITORY HNO ID: [id number] Author: Magdalena (Elliott) Chano Molina Service: Vascular Medicine Author Type: Nurse Practitioner Type: Consult Progress Note Filed: 11/24/2017 11:59 AM Note Text: VASCMED CONSULT PROGRESS NOTE Subjective Follow Up Regarding: APS, remote hx of HIT INTERVAL HPI and PERTINENT ROS: Day 2 of coumadin, INR 1.6 [address] LUQ pain CT scan prelimary results revealed hematoma has decreased in size Denies any outward signs of bleeding, hemoptysis, CP or sob platelets 113k hgb 11.2 aPTT 54.9 Next planned date for apheresis is Monday Current Facility-Administered Medications: warfarin 5 mg tab(s) (COUMADIN) 5 mg ORAL DAILY - WARFARIN [id number] 10 mL oral liquid (BMX 1:1:1) 10 mL ORAL q 2 H PRN bivalirudin 250 mg in D5W 250 mL (ANGIOMAX) 0.1 mg/kg/hr INTRAVENOUS CONTINUOUS gabapentin 400 mg cap(s) (NEURONTIN) 400 mg ORAL TID cyclobenzaprine 10 mg tab(s) (FLEXERIL) 10 mg ORAL AT BEDTIME cyclobenzaprine 10 mg tab(s) (FLEXERIL) 10 mg ORAL BID PRN NIFEdipine ER 60 mg tab(S) (PROCARDIA XL) 60 mg ORAL BID predniSONE 40 mg tab(s) (DELTASONE) 40 mg ORAL/FEEDING TUBE DAILY HYDROmorphone 0.3 mg in NaCl 0.9% (DILAUDID) 0.3 mg INTRAVENOUS q 6 H PRN acetaminophen 1,000 mg tab(s) (TYLENOL) 1,000 mg ORAL TID torsemide 20 mg tab(s) (DEMADEX) 20 mg ORAL DAILY 0.9% NaCl 10 mL 10 mL INTRAVENOUS q 12 H 0.9% NaCl 20 mL 20 mL INTRAVENOUS PRN sodium citrate 4% 3-6 mL catheter lock 3-6 mL INTRALUMINAL APHERESIS PRN albuterol 2.5 mg /3 mL (0.083 %) 2.5 mg (PROVENTIL) 2.5 mg INHALATION q 4 WEEKS And pentamidine 300 mg nebulizer solution (NEBUPENT) 300 mg INHALATION q 4 WEEKS carvedilol 25 mg tab(s) (COREG) 25 mg ORAL/FEEDING TUBE BID w MEALS oxyCODONE IR 5-10 mg tab(s) (ROXICODONE) 5-10 mg ORAL/FEEDING TUBE q 4 H PRN lidocaine 5 % 1 Patch (LIDODERM) 1 Patch TRANSDERMAL DAILY And lidocaine patch - REMOVE OTHER AT BEDTIME And lidocaine - VERIFY PATCH OTHER q 8 H polyethylene glycol 3350 17 g packet (MIRALAX, GLYCOLAX) 17 g ORAL/FEEDING TUBE DAILY docusate sodium 100 mg cap(s) (COLACE) 100 mg ORAL BID senna 8.6 mg tab(s) (SENOKOT) 8.6 mg ORAL/FEEDING TUBE BID pantoprazole DR 40 mg tab(s) (PROTONIX) 40 mg ORAL DAILY (6 AM) ondansetron 8 mg tab(s) (ZOFRAN) 8 mg ORAL q 8 H PRN diphenhydrAMINE 50 mg (BENADRYL) 50 mg ORAL/FEEDING TUBE q 6 H PRN hydrocortisone sodium succinate (PF) 100 mg injection (Solu- CORTEF) 100 mg INTRAVENOUS q 4 H PRN diphenhydrAMINE 50 mg injection (BENADRYL) 50 mg INTRAVENOUS q 4 H PRN prochlorperazine 5 mg injection (COMPAZINE) 5 mg INTRAVENOUS q 6 H PRN dextrose 50% in water 25-50 mL syringe 12.5-25 g INTRAVENOUS PRN dextrose 40 % 15 g 15 g ORAL PRN glucagon 1 mg injection (GLUCAGEN) 1 mg SUBCUTANEOUS PRN Objective PHYSICAL EXAM: BP 139/78 Pulse 97 Temp 36.8 ?C (98.3 ?F) (Oral) Resp 16 Ht 160 cm (5' 3) Wt 100.3 kg (221 lb 1.9 oz) SpO2 89% BMI 39.17 kg/m? General: alert and oriented x3, lying in bed in NAD Cardiac: RRR, normal S1S2 Respiratory: clear B/L, on 2LNC Abdominal/GI: soft, non-tender Extremity: mild edema, chronic skin changes Skin: warm, dry Pulse/vascular exam: B/L + 2 rad/pt DATA: Diagnostic tests reviewed for today's visit: Most recent labs and imaging results. Most recent labs CBC, Coags, BMP, Mg, Phos Recent Labs 11/24/17 0653 11/23/17 0855 11/23/17 0428 11/22/17 1245 11/22/17 0450 WBC 5.78 5.47 -- -- -- 4.12 HB 11.2* 11.8 -- -- -- 9.7* HCT 35.6* 37.1 -- -- -- 30.0* PLT 113* 108* -- -- -- 59* INR 1.6* -- -- -- 1.1 -- APTT 54.9* 48.3* 46.9* < > 23.4 -- NA 141 -- -- -- -- -- K 4.0 -- -- -- -- -- CHLOR 100 -- -- -- -- -- CO2 27 -- -- -- -- -- BUN 41* -- -- -- -- -- CREAT 1.33* -- -- -- -- -- GLUC 74 -- -- -- -- -- CA 8.8 -- -- -- -- -- < > = values in this interval not displayed. 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 Hospital course further c/b severe thrombocytopenia and CAPRICE requiring dialysis. AC was held x 4 weeks, now resumed yesterday. Hematology following , patient has received apheresis, Nplate and cytoxan currently being held. She is currently on bival to coumadin bridge. Renal function has recovered. She is currently on bival to coumadin bridge. Hemoglobin stable and platelets continue to uptrend with no clinical signs of bleeding. Now w/ new c/o's LUQ pain, abdominal CT scan prelim report, shows interval decrease in size of hematoma Estimated Creatinine Clearance: 71.2 mL/min (A) (based on SCr of 1.33 mg/dL (H)). Plan discussed w/Dr. Roman: Day 2 of coumadin, INR 1.6 (2.0-3.0) likely bival effect Okay w/ 5mg of coumadin x 1 tonight aPTT 54.9 (46-65) therapeutic, continue with 0.1mg/kg/hr and repeat aPTT tomorrow morning. Please call [facility] [phone] if not within therapeutic range Bival and Coumadin should overlap for a minimum of 5 days and until INR is therapeutic before Bival can be discontinued. aPTTs, CBC/INR daily in house Duration of treatment: fpc Upon discharge, INR management to be resumed by Vascular Medicine SIGNATURE: Magdalena Lewis APRN.CNP PATIENT NAME: Paloma Cannon DATE: November 24, 2017 TIME: 8:35 AM PAGER/CONTACT #: [phone] . CBC Collected: 11/24/2017 Status: F Source: [place] 6:53 AM [facility] REPOSITORY TYPE CODE TESTS RESULT OUT OF REFERENCE UNITS RANGE LAB WBC 3.70-11.00 k/uL WBC 5.78 LAB RBC 3.90-5.20 m/uL Low RBC 3.43 LAB HGB 11.5-15.5 g/dL Low Hemoglobin 11.2 LAB HCT 36.0-46.0 % Low Hematocrit 35.6 LAB MCV 80.0-100.0 fL MCV High 103.8 LAB MCH 26.0-34.0 pG MCH 32.7 LAB MCHC 30.5-36.0 g/dL MCHC 31.5 LAB RDWCV 11.5-15.0 % RDW-CV High 22.7 LAB PLTCT 150-400 k/uL Low Platelet Count 113 LAB MPV 9.0-12.7 fL MPV 12.4 LAB ABSNUC <0.01 k/uL Absolute nRBC <0.01 Performed By: #### CBC, PT, PTT, BMP #### [facility] [address] [id number] PROTIME Collected: 11/24/2017 Status: F Source: [place] 6:53 AM [facility] REPOSITORY TYPE CODE TESTS RESULT OUT OF RANGE REFERENCE UNITS LAB PSEC 9.7-13.0 sec High PT Sec 16.0 LAB INR 0.9-1.3 High PT INR 1.6 Result Comment: Vitamin K Antagonist (VKA) Therapeutic Range: INR 2 to 3 (Target INR of 2.5) Note: For patients treated with VKA drugs, such as warfarin, the [place] [employer] 2012 Guideline recommends a therapeutic INR range of 2 to 3 (target INR of 2.5). This recommendation includes high-risk patients with antiphospholipid syndrome with previous arterial or venous thromboembolism, current-generation mechanical or bioprosthetic aortic heart valve replacement. Note: Patients with mechanical aortic valve replacement and additional risk factors for thromboembolic events (atrial fibrillation, previous thromboembolism, LV dysfunction, hypercoagulable conditions) or an older generation mechanical AVR (i.e., ball in-Cage) or any mechanical MVR should have a INR therapeutic range of 2.5 to 3.5 (target INR of 3). Michael GH, et al. Chest 2012, 141:7S-47S Diogenes RESENDIZ et al. [facility] 2017, 70: 252-289 Performed By: #### CBC, PT, PTT, BMP #### [facility] [address] [id number] APTT Collected: 11/24/2017 Status: F Source: [place] 6:53 AM [facility] REPOSITORY TYPE CODE TESTS RESULT OUT OF RANGE REFERENCE UNITS LAB APTT 23.0-32.4 sec High APTT 54.9 Result Comment: Unfractionated Heparin Therapeutic Ranges: Standard Heparin Nomogram: 53 to 78 seconds (anti-Xa level of 0.3 to 0.7 U/ml) Low Dose/ACS Nomogram: 49 to 67 seconds (anti-Xa level of 0.2 to 0.5 U/ml) Stroke Treatment Nomogram: 49 to 67 seconds (anti-Xa level of 0.2 to 0.5 U/ml) Note: The APTT therapeutic range has been determined for the current lot of laboratory APTT reagent in use throughout the [facility]. Performed By: #### CBC, PT, PTT, BMP #### [facility] [address] [place], [place] [address] BASIC METABOLIC PANL Collected: 11/24/2017 Status: F Source: [place] 6:53 AM [facility] REPOSITORY TYPE CODE TESTS RESULT OUT OF REFERENCE UNITS RANGE LAB GLU 74-99 mg/dL Glucose 74 Result Comment: The [place] [employer] (ADA) provides guidance for cutoff values for fasting glucose and random glucose. The ADA defines fasting as no caloric intake for at least 8 hours. Fas ting plasma glucose results between 100 to 125 mg/dL indicate increased risk for diabetes (prediabetes). Fasting plasma glucose results greater than or equal to 126 mg/dL meet the criteria for diagnosis of diabetes. In the absence of unequivocal hyperglycemia, results should be confirmed by repeat testing. In a patient with classic symptoms of hyperglycemia or hyperglycemic crisis, random plasma glucose results greater than or equal to 200 mg/dL meet the criteria for diagnosis of diabetes. Reference: Standards of Medical Care in Diabetes 2016, [place] [employer]. Diabetes Care. 2016.39(Suppl 1). LAB BUN 7-21 mg/dL BUN High 41 LAB CRET 0.58-0.96 mg/dL Creatinine High 1.33 LAB NA 136-144 mmol/L Sodium 141 LAB K 3.7-5.1 mmol/L Potassium 4.0 LAB CL 97-105 mmol/L Chloride 100 LAB CO2 22-30 mmol/L CO2 27 LAB AGAP 9-18 mmol/L Anion Gap 14 LAB CA 8.5-10.2 mg/dL Calcium, Total 8.8 LAB GFRAA eGFR- Amer. 57 LAB GFRNAA . eGFR-All Other Races 48 Result Comment: eGFR (Estimated GFR) Units of measure: mL/min/1.73 meters squared eGFR is derived from the reexpressed MDRD Study equation using the following parameters: serum creatinine, age, gender and race. The creatinine assay has been calibrated to be traceable to IDMS. An eGFR <60 mL/min/1.73m2 for >3 months is consistent with chronic kidney disease. Refer to KDOQI guidelines for clinical interpretation. In patients with unstable renal function, e.g. those with acute kidney injury, the eGFR may not accurately reflect actual GFR. Performed By: #### CBC, PT, PTT, BMP #### [facility] [address] [place], [place] [address] CONSULT PROG Observed: 11/23/2017 Status: COMPLETED Source: [place] 9:57 PM [facility] [facility] REPOSITORY O ID: [id number] Author: Lis Tracy Service: Physical Medicine AND Rehabilitation Author Type: Physician Type: Consult Progress Note Filed: 11/23/2017 10:18 PM Note Text: Physical Medicine and Rehabilitation Consult progress note November 23, 2017 Updates: On bival gtt, first dose of coumadin tonight. Ashley therapies. Surpress wrapping to the knees Current hospital medications: warfarin 5 mg tab(s) (COUMADIN) 5 mg ORAL DAILY - WARFARIN [id number]-[id number] 10 mL oral liquid (BMX 1:1:1) 10 mL ORAL q 2 H PRN bivalirudin 250 mg in D5W 250 mL (ANGIOMAX) 0.1 mg/kg/hr INTRAVENOUS CONTINUOUS gabapentin 400 mg cap(s) (NEURONTIN) 400 mg ORAL TID cyclobenzaprine 10 mg tab(s) (FLEXERIL) 10 mg ORAL AT BEDTIME cyclobenzaprine 10 mg tab(s) (FLEXERIL) 10 mg ORAL BID PRN NIFEdipine ER 60 mg tab(S) (PROCARDIA XL) 60 mg ORAL BID predniSONE 40 mg tab(s) (DELTASONE) 40 mg ORAL/FEEDING TUBE DAILY HYDROmorphone 0.3 mg in NaCl 0.9% (DILAUDID) 0.3 mg INTRAVENOUS q 6 H PRN acetaminophen 1,000 mg tab(s) (TYLENOL) 1,000 mg ORAL TID torsemide 20 mg tab(s) (DEMADEX) 20 mg ORAL DAILY 0.9% NaCl 10 mL 10 mL INTRAVENOUS q 12 H 0.9% NaCl 20 mL 20 mL INTRAVENOUS PRN sodium citrate 4% 3-6 mL catheter lock 3-6 mL INTRALUMINAL APHERESIS PRN albuterol 2.5 mg /3 mL (0.083 %) 2.5 mg (PROVENTIL) 2.5 mg INHALATION q 4 WEEKS pentamidine 300 mg nebulizer solution (NEBUPENT) 300 mg INHALATION q 4 WEEKS carvedilol 25 mg tab(s) (COREG) 25 mg ORAL/FEEDING TUBE BID w MEALS oxyCODONE IR 5-10 mg tab(s) (ROXICODONE) 5-10 mg ORAL/FEEDING TUBE q 4 H PRN lidocaine 5 % 1 Patch (LIDODERM) 1 Patch TRANSDERMAL DAILY lidocaine patch - REMOVE OTHER AT BEDTIME lidocaine - VERIFY PATCH OTHER q 8 H polyethylene glycol 3350 17 g packet (MIRALAX, GLYCOLAX) 17 g ORAL/FEEDING TUBE DAILY docusate sodium 100 mg cap(s) (COLACE) 100 mg ORAL BID senna 8.6 mg tab(s) (SENOKOT) 8.6 mg ORAL/FEEDING TUBE BID pantoprazole DR 40 mg tab(s) (PROTONIX) 40 mg ORAL DAILY (6 AM) ondansetron 8 mg tab(s) (ZOFRAN) 8 mg ORAL q 8 H PRN diphenhydrAMINE 50 mg (BENADRYL) 50 mg ORAL/FEEDING TUBE q 6 H PRN hydrocortisone sodium succinate (PF) 100 mg injection (Solu- CORTEF) 100 mg INTRAVENOUS q 4 H PRN diphenhydrAMINE 50 mg injection (BENADRYL) 50 mg INTRAVENOUS q 4 H PRN prochlorperazine 5 mg injection (COMPAZINE) 5 mg INTRAVENOUS q 6 H PRN dextrose 50% in water 25-50 mL syringe 12.5-25 g INTRAVENOUS PRN dextrose 40 % 15 g 15 g ORAL PRN glucagon 1 mg injection (GLUCAGEN) 1 mg SUBCUTANEOUS PRN Exam BP 145/68 Pulse 95 Temp 37.4 ?C (99.3 ?F) (Oral) Resp 20 Ht 160 cm (5' 3) Wt 100.3 kg (221 lb 1.9 oz) SpO2 93% BMI 39.17 kg/m? Sitting up in bed, NAD, cooperative, pleasant CTAB RRR abd: soft NT ND +BS MMT 5/5 on the UEs, 3+/5 on the HFs (possibly with heaviness from the edema), 4+/5 on the KEs, 5/5 DF/PFs Surpres to knees b/l, notable pitting edema above the knees in area not covered by wrapping. Component Latest Ref Rng AND Units 11/20/2017 11/21/2017 11/22/2017 11/23/2017 11/23/2017 11/23/2017 12:28 AM 4:28 AM 8:55 AM WBC 3.70 - 11.00 k/uL 4.54 4.16 4.12 5.47 RBC 3.90 - 5.20 m/uL 3.33 (L) 3.18 (L) 2.89 (L) 3.55 (L) Hemoglobin 11.5 - 15.5 g/dL 11.3 (L) 10.7 (L) 9.7 (L) 11.8 Hematocrit 36.0 - 46.0 % 34.7 (L) 32.8 (L) 30.0 (L) 37.1 MCV 80.0 - 100.0 fL 104.2 (H) 103.1 (H) 103.8 (H) 104.5 (H) MCH 26.0 - 34.0 pG 33.9 33.6 33.6 33.2 MCHC 30.5 - 36.0 g/dL 32.6 32.6 32.3 31.8 RDW-CV 11.5 - 15.0 % 23.9 (H) 23.3 (H) 23.0 (H) 23.0 (H) Platelet Count 150 - 400 k/uL 45 (L) 50 (L) 59 (L) 108 (L) MPV 9.0 - 12.7 fL <<DO NOT REPORT>> <<DO NOT REPORT>> 13.3 (H) 12.9 (H) Absolute nRBC <0.01 k/uL <0.01 0.02 (H) <0.01 0.02 (H) Glucose 74 - 99 mg/dL 71 (L) BUN 7 - 21 mg/dL 41 (H) Creatinine 0.58 - 0.96 mg/dL 1.26 (H) Sodium 136 - 144 mmol/L 142 Potassium 3.7 - 5.1 mmol/L 3.9 Chloride 97 - 105 mmol/L 104 CO2 22 - 30 mmol/L 24 Anion Gap 9 - 18 mmol/L 14 Calcium 8.5 - 10.2 mg/dL 8.1 (L) eGFR- >60 eGFR-All Other Races . 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 She was transferred to [facility] for further stabilization. She underwent urgent Left Retroperitoneal angiogram and embolization which incidentally found large lower extremity fistula (vascular surgery- no intervention at this time). Vascular medicine recommended holding anticoagulation for at least 14 days since last bleed restarted on bivalrudin bridge to coumadin (first dose coumadin 11/23/17). Cytoxan has been held due to current thrombocytopenia. Anemia with Hb as low as 4.8 on 10/23, Moraxella catarrhalis pneumonia (completed ceftriaxone), oliguric CAPRICE: contrast induced nephropathy, fluid overload, IHD x 2d, infection (Respiratory cx: many gram neg diplococci, moderate yeast, few gram positive bacilli, Blood culture 10/23: NGTD), acute pain requiring opitates, left groin drainage (dark yellow drainage into zuniga bag). Notable edema of the LEs. Plat 108, BUN/Cr 41/1.26. Bival gtt with coumadin bridging Impaired self care and mobility -to acute rehab once medically ready-however, she has an upcoming PLEX for Monday (11/27/17- for anti-phospholipid syndrome), which will need to be completed prior to rehab- she has PLEX q2 weeks and anticipating a ELOS on acute rehab about 10-14 days, so should not be an issue with next due PLEX. She is also currently on Bival gtt until therapeutic INR- Dr. Wayne noted that would keep on acute hospital side until able to d/c the bival. -suspect will mobilize better with improving edema on the LEs Lis Tracy MD THERAPY NT Observed: 11/23/2017 Status: COMPLETED Source: [place] 3:50 PM [facility] REPOSITORY HNO ID: [id number] Author: Tamiko (Pt) Adelaida Service: Physical Therapy Author Type: Physical Therapist Type: Therapy (PT/OT/Speech/Resp) Filed: 11/23/2017 3:57 PM Note Text: Physical Therapy Wound/Lymph Treatment SERVICE DATE: 11/23/2017 SERVICE TIME: 1340 to 1408 ROOM: [place] [address] Recommended Discharge Disposition Comments: will require further assessment Anticipated Discharge Needs: Undetermined PT Recommendations to Nursing: With assist of 1 person;Transfer to/from chair;OOB for Meals 6 Clicks Score: 14 Skin Condition: BLE lymphedema Frequency of Dressing Change:Daily?- compression wraps to be worn during the day hours ?Physical Therapy to Perform Dressing Change: 4x/week to be coordinated with nursing ?Nursing to Perform Dressing Change:1x/day Monday and Monday Dressing/Treatment Type: See Clinical Documentation report for specific dressing information. ASSESSMENT : Patient with slight increase in edema today per circumferential measurements which is likely due to the fact that she has been out of compression for over 12 hours. Pt is physically unable to perform compression wrapping therefore will need to perform training with a family member. ?Plan to continue with current POC at this time. Patient Disposition at Start of Session: Supine in Bed Patient Disposition at End of Session: Supine in Bed;Call [facility]er in [place] Tolerated Full Session Fatigue Physical Therapy Problem List: Cognitive Deficit;Education Deficit;Decreased Activity Tolerance;Decreased Strength;Functional Mobility Impairment Patient /Caregiver Goals: Unique to general PT Goals for Plan of Care: 1. ?Decongestion of BLE?with girth measurements decreased by 2-4?cm per segment to increase level of independence with functional mobility and ADL's, decrease pain, decrease recurrence of infection, improved range of motion and allow appropriate fit in compressive garment. ?? 2. ??Pt and/or caregiver will demonstrate compliance in knowledge of lymphedema precautions including meticulous skin and nail care to reduce risk of infection and further exacerbation. 3. ??Pt and/or caregiver will demonstrate the correct method of Lymphatic Bandaging/compression technique and independent understanding of the principles and theory of compression 4. ??Pt and/or caregiver will be independent in their exercise program to enchance Lymphatic flow and decongestion of the affected body parts 5. Patient/ Caregiver will be able to demonstrate competence with offloading recommendations and pressure relieving strategies 6. Patient/ Caregiver will be able to state the signs and symptoms of infection Progress Toward Goals: Progressing as expected Due To: medical status Rehab Potential: Fair PLAN: Treatment Frequency (times per week): 4 Current admission Treatment Interventions: Education;Self Care / Home Management;Joint Mobility;Strengthening;Functional Mobility Training;Balance Training;Edema Management;Pain Management Plan of Care developed with: Patient TREATMENT INTERVENTIONS: Interventions Provided: Manual Therapy (70100) Manual Therapy (55953) Treatment Minutes: 28 2 units Skilled Intervention: Manual skills to improve joint mobility, range of motion, and decrease pain. Educated patient on the following aspect of Complete Decongestive Therapy (CDT): 1.??Compressive Therapy: Discussed rationale for compression garment and bandaging Instructed in proper technique for compression wrapping Skilled interventions: - Increase lymaphtic fluid dynamics - Increase skin extensibility - Utilized anatomy knowledge of the therapist, and assessment of patient's response to intervention. ? Manual Compression performed: 1. ?Skin inspected and?cleansed thoroughly 2. ?Applied lotion?to BLE? 3. ?Applied 1 surgigrip?+ 1 ABD pad at the foot/ ankle + 1?surepress wraps applied at 50% tension?with a 50% overlap (deferred ankle padding today). ? Spoke at length with pt re: when to loosen or remove the bandages (i.e.: in the event that pain becomes a limiting factor or pt experienced new onset SOB or worsening of respiratory status). Pt verbalized understanding. ? Education: 1. ?Discussed with patient and nursing the risks and benefits of compression therapy and how compression is indicated in this case. 2. ?Educated patient/ caregiver?regarding rationale for compression wrapping and offloading. 3. ?Reviewed?proper technique for compression wrapping.? ? ? Total Timed Code Treatment Minutes: 28 Total Treatment Time (minutes): 28 SUBJECTIVE: Current Hospital Course: Chart reviewed and no significant medical updates relevant to therapy were noted Patient Report: Pt with no new complaints 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 Entry To Home: No Stairs Number Of Stairs To Bed/Bath: 0 Tub/Shower Type: walk in shower Equipment Owned: Commode-Raised;Grab Bars-Shower;Grab Bars-Toilet;Shower Chair;Home Oxygen Prior Functional Level: Required Assistance Assistance Required With: Cleaning;Laundry;Meals;Shopping;Transportation Prior Wound Care: Other: See Comment (unable to don compression stockings (I)) OBJECTIVE: ? Location Date: 11/17/17 Date: 11/22/17 Date: 11/23/17 Right Left Right Left Right Left Metatarsal Heads 25.5cm 24cm 24cm 23cm 23.5cm 22cm Ankle ([place]) 24.5cm 24.5cm 21cm 22.25cm 24cm 24cm 10cm above malleoli 28.5cm 28.25cm 24cm 23cm 28cm 27cm 20cm above malleoli 44cm 40.5cm 36.5cm 34.5cm 43.5cm 39.5cm 30cm above malleoli 49cm 44.5cm 47cm 44cm 45cm 45.5cm ? Location Evaluation Date: ? 08/01/17 Date: ? 11/03/17 Date: 11/16/17 Right Left Right Left Right Left Metatarsal Heads 24cm 22.5cm 24cm 24cm 24cm 24.5cm Ankle ([place]) 23.25cm 22.5cm 24cm 25cm 24.5cm 25cm 10cm above malleoli 28.5cm 28cm 30cm 27.5cm 31cm 29.5cm 20cm above malleoli 42cm 43.25cm 42cm 40cm 46cm 42cm 30cm above malleoli 45.5cm 41.5cm 46cm 47cm 46cm 44.5cm ? LLE Circumferential Measurements: Metatarsal Heads;Ankle;10 cm;20 cm;30 cm Left Metatarsal Heads: 22cm Left Ankle: 24cm Left Lower Extremity 10cm: 27cm Left Lower Extremity 20cm: 39.5cm Left Lower Extremity 30cm: 45.5cm RLE Circumferential Measurements: Metatarsal Heads;Ankle;10 cm;20 cm;30 cm Right Metatarsal Heads: 23.5cm Right Ankle: 24cm Right Lower Extremity 10cm: 28cm Right Lower Extremity 20cm: 43.5cm Right Lower Extremity 30cm: 45cm Sensation Sensation: Right Lower Extremity;Left Lower Extremity Right Lower Extremity Sensation: Light Touch RLE Light Touch: Intact Left Lower Extremity Sensation: Light Touch LLE Light Touch: Intact Circulation Pulses: Right Dorsalis Pedis;Left Dorsalis Pedis Right Dorsalis Pedis Pulse: (unable to palpate due to lymphedema; present via doppler) Left Dorsalis Pedis Pulse: (unable to palpate due to lymphedema; present via doppler) Capillary Refill: Right Lower Extremity;Left Lower Extremity Right Lower Extremity Capillary Refill: Intact Left Lower Extremity Capillary Refill: Intact See Clinical Documentation report for Skin Documentation. Current Functional Mobility Assist Level Additional Information Rolling Contact Guard Assistance Supine to Sit Contact Guard Assistance Sit to Supine (up in chair) Scooting Contact Guard Assistance Sit to Stand Moderate Assistance (to minimal assist) Stand to Sit Minimal Assistance Bed to Chair Minimal Assistance Toilet/Commode Minimal Assistance Gait Minimal Assistance Gait Device: Wheeled Walker Gait Distance (feet): 4' x 2, 25', 40' General Gait Deviations: Delmy decreased;Flexed trunk posture;Wide base of support;Step length decreased;Lateral sway increased Balance: Static Sitting;Dynamic Sitting;Static Standing;Dynamic Standing Static Sitting Balance: Stand By Assistance Dynamic Sitting Balance: Contact Guard Assistance Static Standing Balance: Minimal Assistance Dynamic Standing Balance: Minimal Assistance Please see discipline specific clinical documentation flowsheet for complete details for this therapy evaluation/treatment. SIGNATURE: Tamiko Son PT PATIENT NAME: Paloma Cannon DATE: November 23, 2017 TIME: 3:50 PM PAGER/CONTACT #: [phone] PROGRESS Observed: 11/23/2017 Status: COMPLETED Source: [place] 2:26 PM [facility] REPOSITORY HNO ID: [id number] Author: Ros Wayne Service: General Internal Medicine Author Type: Physician Type: Progress Notes Filed: 11/23/2017 9:13 PM Note Text: RAF Terry PROGRESS NOTE For questions regarding this patient today please page [phone] After 5 pm on weekdays and 3pm on weekends and holidays please page documentation clerk pager [phone] SERVICE DATE: 11/23/2017 SERVICE TIME: 2:27 PM INTERVAL HISTORY: - No events overnight - Patient has no complaints this AM. Enjoying music therapy. - Started bivalirudin yesterday and reached therapeutic levels of APTT this AM. - skilled for acute rehab, per PT. Patient is at low bleeding risk and would benefit from acute rehab. Labs Creatinine: 1.10-->1.40-->1.19-->1.29-->0.96-->1.1-->0.96-->0.88-->1.06-->1.08-->1.22-- >1.15-->1.26-->1.23-->1.25 Plt: 25-1u plt->34-->28-1u plt->34-->40-->26-1uplat->37-->43-->46-->42-->39-->45-->45-->50-->59-->108 PLAN FOR TODAY - starting bridge to coumadin tonight. Bivalirudin and coumadin should overlap for a minimum of 5 days until INR is therapeutic before Bivalirudin can be discontinued - desaturation study required prior to discharge - PMANDR needs to reevaluate regarding disposition - c/w torsemide 20 mg qday - N-plate this week, per Heme - next apheresis 11/27 MEDICATIONS: Current hospital medications: warfarin 5 mg tab(s) (COUMADIN) 5 mg ORAL DAILY - WARFARIN [id number]-npiwen-wnvmafxtu 10 mL oral liquid (BMX 1:1:1) 10 mL ORAL q 2 H PRN bivalirudin 250 mg in D5W 250 mL (ANGIOMAX) 0.1 mg/kg/hr INTRAVENOUS CONTINUOUS gabapentin 400 mg cap(s) (NEURONTIN) 400 mg ORAL TID cyclobenzaprine 10 mg tab(s) (FLEXERIL) 10 mg ORAL AT BEDTIME cyclobenzaprine 10 mg tab(s) (FLEXERIL) 10 mg ORAL BID PRN NIFEdipine ER 60 mg tab(S) (PROCARDIA XL) 60 mg ORAL BID predniSONE 40 mg tab(s) (DELTASONE) 40 mg ORAL/FEEDING TUBE DAILY HYDROmorphone 0.3 mg in NaCl 0.9% (DILAUDID) 0.3 mg INTRAVENOUS q 6 H PRN acetaminophen 1,000 mg tab(s) (TYLENOL) 1,000 mg ORAL TID torsemide 20 mg tab(s) (DEMADEX) 20 mg ORAL DAILY 0.9% NaCl 10 mL 10 mL INTRAVENOUS q 12 H 0.9% NaCl 20 mL 20 mL INTRAVENOUS PRN sodium citrate 4% 3-6 mL catheter lock 3-6 mL INTRALUMINAL APHERESIS PRN albuterol 2.5 mg /3 mL (0.083 %) 2.5 mg (PROVENTIL) 2.5 mg INHALATION q 4 WEEKS pentamidine 300 mg nebulizer solution (NEBUPENT) 300 mg INHALATION q 4 WEEKS carvedilol 25 mg tab(s) (COREG) 25 mg ORAL/FEEDING TUBE BID w MEALS oxyCODONE IR 5-10 mg tab(s) (ROXICODONE) 5-10 mg ORAL/FEEDING TUBE q 4 H PRN lidocaine 5 % 1 Patch (LIDODERM) 1 Patch TRANSDERMAL DAILY lidocaine patch - REMOVE OTHER AT BEDTIME lidocaine - VERIFY PATCH OTHER q 8 H polyethylene glycol 3350 17 g packet (MIRALAX, GLYCOLAX) 17 g ORAL/FEEDING TUBE DAILY docusate sodium 100 mg cap(s) (COLACE) 100 mg ORAL BID senna 8.6 mg tab(s) (SENOKOT) 8.6 mg ORAL/FEEDING TUBE BID pantoprazole DR 40 mg tab(s) (PROTONIX) 40 mg ORAL DAILY (6 AM) ondansetron 8 mg tab(s) (ZOFRAN) 8 mg ORAL q 8 H PRN diphenhydrAMINE 50 mg (BENADRYL) 50 mg ORAL/FEEDING TUBE q 6 H PRN hydrocortisone sodium succinate (PF) 100 mg injection (Solu- CORTEF) 100 mg INTRAVENOUS q 4 H PRN diphenhydrAMINE 50 mg injection (BENADRYL) 50 mg INTRAVENOUS q 4 H PRN prochlorperazine 5 mg injection (COMPAZINE) 5 mg INTRAVENOUS q 6 H PRN dextrose 50% in water 25-50 mL syringe 12.5-25 g INTRAVENOUS PRN dextrose 40 % 15 g 15 g ORAL PRN glucagon 1 mg injection (GLUCAGEN) 1 mg SUBCUTANEOUS PRN HOME MEDICATIONS: cyclophosphamide (CYTOXAN) 50 mg capsule Take 150 mg by mouth once daily. diphenhydrAMINE (BENADRYL) 50 mg capsule Take 1 capsule by mouth every 6 hours as needed for Itching/Rash. gabapentin (NEURONTIN) 100 mg capsule Take 1 capsule by mouth three times daily for 7 days. ondansetron (ZOFRAN, HYDROCHLORIDE,) 8 mg tablet Take 8 mg by mouth every 8 hours as needed for Nausea/Vomiting. pantoprazole DR (PROTONIX) 40 mg tablet Take 40 mg by mouth daily at bedtime. sulfamethoxazole-trimethoprim (BACTRIM DS) 800-160 mg per tablet Take 1 tablet by mouth every Monday,Monday,Monday. fluticasone (FLONASE) 50 mcg/actuation nasal spray Use 1-2 Sprays in each nostril once daily as needed for Cold/Allergy Symptoms (starting in allergy season). senna 8.6 mg tab Take 1 tablet by mouth twice daily as needed. PHYSICAL EXAM: VITAL SIGNS Patient Vitals for the past 24 hrs: BP Temp Temp src Pulse Resp SpO2 Weight 11/23/17 1140 165/86 - - - - - - 11/23/17 1000 178/89 36.6 ?C (97.8 ?F) Oral 95 18 93 % - 11/23/17 0634 - - - - 20 - - 11/23/17 0536 156/80 36.4 ?C (97.5 ?F) Oral 87 18 89 % 100.3 kg (221 lb 1.9 oz) 11/23/17 0158 123/77 36.5 ?C (97.7 ?F) Oral 77 18 94 % - 11/22/17 2133 146/85 36.7 ?C (98.1 ?F) Oral 79 20 95 % - 11/22/17 1744 150/83 37.1 ?C (98.7 ?F) Oral 94 19 92 % - 11/22/17 1627 148/87 - - 88 - - - BP 165/86 Pulse 95 Temp 36.6 ?C (97.8 ?F) (Oral) Resp 18 Ht 160 cm (5' 3) Wt 100.3 kg (221 lb 1.9 oz) SpO2 93% BMI 39.17 kg/m? Temp (24hrs), Av.7 ?C (98 ?F), Min:36.4 ?C (97.5 ?F), Max:37.1 ?C (98.7 ?F) INTAKE/OUTPUT Intake/Output Summary (Last 24 hours) at 11/23/17 1453 Last data filed at 11/23/17 1310 Gross per 24 hour Intake 394 ml Output 550 ml Net -156 ml General: Alert, oriented, cooperative.?In no acute distress. 2L NC Skin:?Chronic skin changes on bilateral LE below the knee?due to lymphedema HEENT: EOM. Pupils equal, round and reactive Cardiovascular: RRR. No murmur Lungs: Minimal crepitations at the bases than prior Abdomen: Soft, non-tender, no masses or organomegaly Extremities: 2+ peripheral edema but improving,?+2 DP pulses bilaterally Neurological: Moving all extremities freely? LAB DATA: CBC, Coags, BMP, Mg, Phos Recent Labs 11/23/17 0855 11/23/17 0428 11/23/17 0028 11/22/17 1245 11/22/17 0450 11/21/17 0440 WBC 5.47 -- -- -- -- 4.12 4.16 HB 11.8 -- -- -- -- 9.7* 10.7* HCT 37.1 -- -- -- -- 30.0* 32.8* PLT 108* -- -- -- -- 59* 50* INR -- -- -- -- 1.1 -- -- APTT 48.3* 46.9* 43.2* < > 23.4 -- -- NA -- -- -- -- -- -- 142 K -- -- -- -- -- -- 3.9 CHLOR -- -- -- -- -- -- 104 CO2 -- -- -- -- -- -- 24 BUN -- -- -- -- -- -- 41* CREAT -- -- -- -- -- -- 1.26* GLUC -- -- -- -- -- -- 71* CA -- -- -- -- -- -- 8.1* MG -- -- -- -- -- -- 1.8 < > = values in this interval not displayed. ASSESSMENT AND PLAN: Active Hospital Problems Diagnosis - Retroperitoneal hematoma Retroperitoneal bleed: s/p 7 units PRBCs s/p IR emobolization of left L3 artery at [facility] on 10/23 IR embolization of left L2 and L3 arteries on 10/26 CT abd/pel 10/31: RP bleed stable when compared to previous imaging from 10/27 LDH 1730, haptoglobin <10, Tbili 1.3- concern for hemolysis as well. Per heme, thrombocytopenia and anemia likely related to cytoxan with stressed BM Cytoxan reduced to 75 mg daily Plan: Continue to monitor HANDH and transfuse PRBC if Hb<7 or symptomatic Continue to hold Anticoagulation until approved by Vascular medicine- initially recommended holding AC for at least 14 days since last bleeding. 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 Has received stenting of IVC and iliacs along with endograft of IVC. 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 C/B extensive RP bleed s/p L2, L3 embolization. N-plate 11/09, 11/13 Received Apheresis on 11/03, 11/13 (heme following); patient is on [id number] (Mondays) schedule outpatient 11/22: starting bivalirudin Plan: Holding Cytoxan 75 mg in setting of worsening thrombocytopenia Continue prednisone 40 mg with bactrim ppx Appreciate hematology and VM recs c/w with bivalirudin and start coumadin bridge. Bivalirudin and coumadin should overlap for a minimum of 5 days until INR is therapeutic before Bivalirudin can be discontinued - CAPRICE (acute kidney injury) (HCC) CAPRICE on CKD III, 2/2 contrast, now requiring dialysis First HD at [facility] on 10/25 with tunneled dialysis catheter placement followed by [address] Abdomen/pelvis from 10/26 showed occlusion of B/L renal veins, outflow not appreciated- could be attributing to CAPRICE and CKD Bladder scan Plan: Nephrology following- appreciate recommendations Daily BMPs to watch K, Na and phosphorus levels Renal dosing of medication Avoid excess fluids and nephrotoxic drugs - HTN (hypertension) Mildly decreased systolic function, diastolic function indeterminate on 10/13/17 ECHO. 10/28: Run of SBP in 200s overnight (likely d/t pain), given hydralazine however still consistently in 170s-180s 10/29: Still hypertensive, required 4 doses of hydralazine overnight Switched Amlodipine 10 mg to nifedipine 30mg on 11/10, and increased Coreg from 6.25 to 25 mg BID Plan: Nifedipine 60 mg BID and keeping Coreg at current dosing, can up titrate coreg if tolerating well (HR currently 80-100) Can consider adding PRN hydralazine for SBP>180 mm Hg, - Diffuse pulmonary alveolar hemorrhage Currently stable, no new episodes Has had 6 admissions recently for acute respiratory failure requiring mechanical ventilation Cytoxan was reduced from 150 to 75 mg due to concern for BM toxicity; renally dosed Decreased prednisone from 60 to 40 mg Plan: Continue to monitor respiratory status Continue oxygen therapy at 2L NC Holding Cytoxan in setting of worsening thrombocytopenia Continue Prednisone 40 mg daily Switched bactrim to pentamidine for ppx on 11/12 Will reach out to outpatient provider regarding switch to pentamidine from bactrim, per heme recs - Moraxella catarrhalis pneumonia (HCC) Had respiratory cultures growing Moraxella catarrhalis Received ceftriaxone 10/27-11/03- 7 days therapy WBC trended down from 21 K to 12K. Currently at baseline O2 requirement but still slightly tachypneic Completed course of ceftriaxone. Plan: Continue to monitor respiratory status closely BPH per RT Incentive spirometry - Peripheral neuropathy - History of heparin-induced thrombocytopenia Avoid all heparin products. - Weakness of left leg 11/02 Left leg weakness/parasthesia Likely related to lumbar nerve compression from large retroperitoneal hematoma Neurology was following, recommended no further intervention On gabapentin renally dosed. 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 Acute rehabilitation center This note is not final until staffed by the attending physician and authenticated by responsible provider. SIGNATURE: Olga Reyez MD PATIENT NAME: Paloma Cannon DATE: November 23, 2017 TIME: 2:27 PM PAGER: [phone] RAF Terry ATTENDING NOTE: Chart reviewed, patient seen and examined on 11/23 at 4pm and fernandes elements of the history and physical were discussed in detail and confirmed with the resident team. I have reviewed the above note, examined the patient and agree with the documented findings and plan of care as listed in Dr Reyez's note. Any addendums above are in bold text. 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 + ENDPLATE 11/09?+ 5 + DC?of Cytoxan (on 11/09) + Bactrim (on 11/12).. platelet count today is 108K !!!! + Pain in L LS area is improved HTN controlled + Resolved?Moraxella catarrhalis HCAP (?Ceftriaxone 10/28 to 11/03) Fluid overloaded but improving since Demadex resumed on 11/13 CAPRICE on CKD on admission: renal function is currently stable Chronic LE edema due to chronic DVT, doing better with LE wraps ?? ? Plan: Cont Bival Begin Coumadin ENDPLATE scheduled to be give this week per HEME: may not be needed due to rising platelet count + PLEX was given on 11/13?and next?due 11/27 + To acute rehab soon Discussed with Dr Daniels (PMANDR) who agrees with need for Acute Rehab Ros Wayne MD FACP Attending, pager [phone] CONSULT Observed: 11/23/2017 Status: COMPLETED Source: [place] 2:03 PM [facility] REPOSITORY HNO ID: [id number] [facility]: [facility] Radha Service: Physical Medicine AND Rehabilitation Author Type: Nurse Practitioner Type: Consults Filed: 11/23/2017 2:04 PM Note Text: PMANDR consult received today (duplicate). Patient seen by Dr. Starr on 11/15/17 for PMANDR consult with recommendations for likely SNF. Please see consult for details. Will have pt seen for follow up. Thank you for consult. Please call with any questions. Michelle Garcia APRN.[facility] Physical Medicine and Rehabilitation pager [phone] NUTRITION Observed: 11/23/2017 Status: COMPLETED Source: [place] 9:35 AM [facility] REPOSITORY HNO ID: [id number] Author: Belem [employer]) Trace Service: Nutrition Therapy Author Type: Surveyor Helper Type: Nutrition Filed: 11/23/2017 9:37 AM Note Text: NUTRITION THERAPY FOLLOW-UP NOTE SERVICE DATE: 11/23/2017 SERVICE TIME: 8:00 am Anthropometrics: Height: 160 cm (5' 3) Current Weight: Weight: 100.3 kg (221 lb 1.9 oz) Body mass index is 39.17 kg/m?. The patient was diagnosed with mild protein calorie malnutrition on 11/02/17 Admitting Diagnosis: Retroperitoneal bleed [R58] Present Diet Order: Regular Is the patient having any pain that is interfering with oral/enteral intake? No Allergies: ALLERGIES Allergen Reactions - Rhubarb Rash, Hives - Chlorhexidine Rash Patient has sensitivity to CHG gel impregnated dressing. Patient can tolerate a sorbaview dressing AND a CHG biopatch. - Heparin Other: See Comments Per patient history of HIT - was on angiomax however then took l fondaparinux for bridging to coumadin. - Iv Contrast [Iodine] Other: See Comments shuts kidneys down per patient - Rituximab Other: See Comments Elevated cardiac enzymes Reason for Visit: Nutrition screen: LOS > 6 days Nutrient intake assessment: Current intake of meals: 75 - 100% Patient concerns/Issues: The patient is currently consuming between 75- 100% of her meals, according to nursing AN reports in [facility]. The patient reports; she is eating well and denies any issues with; swallowing, nausea, diarrhea or emesis at this time. Nutrition Therapy will continue to monitor. The patient declined needing more vouchers. Nursing Admission Assessment Malnutrition Score Tool: 1 Plan of Care: Recommendation No problems noted at this time. Will screen again within 7 days Discharge Plan: Home on diet per MD orders. MNT Billing Type: Routine Care/15 min 1 unit SIGNATURE: Belem Woodward DTR PATIENT NAME: Paloma Cannon DATE: November 23, 2017 TIME: 9:35 AM PAGER: [phone] CBC Collected: 11/23/2017 Status: F Source: [place] 8:55 AM [facility] REPOS[facility] TYPE CODE TESTS RESULT OUT OF REFERENCE UNITS RANGE LAB WBC 3.70-11.00 k/uL WBC 5.47 LAB RBC 3.90-5.20 m/uL Low RBC 3.55 LAB HGB 11.5-15.5 g/dL Hemoglobin 11.8 LAB HCT 36.0-46.0 % Hematocrit 37.1 LAB MCV 80.0-100.0 fL MCV High 104.5 LAB MCH 26.0-34.0 pG MCH 33.2 LAB MCHC 30.5-36.0 g/dL MCHC 31.8 LAB RDWCV 11.5-15.0 % RDW-CV High 23.0 LAB PLTCT 150-400 k/uL Low Platelet Count 108 LAB MPV 9.0-12.7 fL MPV High 12.9 LAB ABSNUC <0.01 k/uL Absolute High nRBC 0.02 Performed By: #### CBC, PTT #### [facility] [address], [place] [address] APTT Collected: 11/23/2017 Status: F Source: [place] 8:55 AM [facility] REPOSITORY TYPE CODE TESTS RESULT OUT OF RANGE REFERENCE UNITS LAB APTT 23.0-32.4 sec High APTT 48.3 Result Comment: Unfractionated Heparin Therapeutic Ranges: Standard Heparin Nomogram: 53 to 78 seconds (anti-Xa level of 0.3 to 0.7 U/ml) Low Dose/ACS Nomogram: 49 to 67 seconds (anti-Xa level of 0.2 to 0.5 U/ml) Stroke Treatment Nomogram: 49 to 67 seconds (anti-Xa level of 0.2 to 0.5 U/ml) Note: The APTT therapeutic range has been determined for the current lot of laboratory APTT reagent in use throughout the [facility]. Performed By: #### CBC, PTT #### [facility] [address] [place], [place] [address] CONSULT PROG Observed: 11/23/2017 Status: COMPLETED Source: [place] 8:38 AM [facility] REPOSITORY HNO ID: [id number] Author: Magdalena (Cinder Crane Operator) Chano Molina Service: Vascular Medicine Author Type: Nurse Practitioner Type: Consult Progress Note Filed: 11/23/2017 11:04 AM Note Text: VASCMED CONSULT PROGRESS NOTE Subjective Follow Up Regarding: APS, remote hx of HIT INTERVAL HPI and PERTINENT ROS: Reports sleeping well during the night back/flank pain unchanged, doing okay w/ flexeril Reports eating well Denies any outward signs of bleeding, hemoptysis, CP or sob platelets 109k hgb 11.8 aPTT 48.3 Current Facility-Administered Medications: [id number] 10 mL oral liquid (BMX 1:1:1) 10 mL ORAL q 2 H PRN bivalirudin 250 mg in D5W 250 mL (ANGIOMAX) 0.1 mg/kg/hr INTRAVENOUS CONTINUOUS gabapentin 400 mg cap(s) (NEURONTIN) 400 mg ORAL TID cyclobenzaprine 10 mg tab(s) (FLEXERIL) 10 mg ORAL AT BEDTIME cyclobenzaprine 10 mg tab(s) (FLEXERIL) 10 mg ORAL BID PRN NIFEdipine ER 60 mg tab(S) (PROCARDIA XL) 60 mg ORAL BID predniSONE 40 mg tab(s) (DELTASONE) 40 mg ORAL/FEEDING TUBE DAILY HYDROmorphone 0.3 mg in NaCl 0.9% (DILAUDID) 0.3 mg INTRAVENOUS q 6 H PRN acetaminophen 1,000 mg tab(s) (TYLENOL) 1,000 mg ORAL TID torsemide 20 mg tab(s) (DEMADEX) 20 mg ORAL DAILY 0.9% NaCl 10 mL 10 mL INTRAVENOUS q 12 H 0.9% NaCl 20 mL 20 mL INTRAVENOUS PRN sodium citrate 4% 3-6 mL catheter lock 3-6 mL INTRALUMINAL APHERESIS PRN albuterol 2.5 mg /3 mL (0.083 %) 2.5 mg (PROVENTIL) 2.5 mg INHALATION q 4 WEEKS And pentamidine 300 mg nebulizer solution (NEBUPENT) 300 mg INHALATION q 4 WEEKS carvedilol 25 mg tab(s) (COREG) 25 mg ORAL/FEEDING TUBE BID w MEALS oxyCODONE IR 5-10 mg tab(s) (ROXICODONE) 5-10 mg ORAL/FEEDING TUBE q 4 H PRN lidocaine 5 % 1 Patch (LIDODERM) 1 Patch TRANSDERMAL DAILY And lidocaine patch - REMOVE OTHER AT BEDTIME And lidocaine - VERIFY PATCH OTHER q 8 H polyethylene glycol 3350 17 g packet (MIRALAX, GLYCOLAX) 17 g ORAL/FEEDING TUBE DAILY docusate sodium 100 mg cap(s) (COLACE) 100 mg ORAL BID senna 8.6 mg tab(s) (SENOKOT) 8.6 mg ORAL/FEEDING TUBE BID pantoprazole DR 40 mg tab(s) (PROTONIX) 40 mg ORAL DAILY (6 AM) ondansetron 8 mg tab(s) (ZOFRAN) 8 mg ORAL q 8 H PRN diphenhydrAMINE 50 mg (BENADRYL) 50 mg ORAL/FEEDING TUBE q 6 H PRN hydrocortisone sodium succinate (PF) 100 mg injection (Solu- CORTEF) 100 mg INTRAVENOUS q 4 H PRN diphenhydrAMINE 50 mg injection (BENADRYL) 50 mg INTRAVENOUS q 4 H PRN prochlorperazine 5 mg injection (COMPAZINE) 5 mg INTRAVENOUS q 6 H PRN dextrose 50% in water 25-50 mL syringe 12.5-25 g INTRAVENOUS PRN dextrose 40 % 15 g 15 g ORAL PRN glucagon 1 mg injection (GLUCAGEN) 1 mg SUBCUTANEOUS PRN Objective PHYSICAL EXAM: BP 156/80 Pulse 87 Temp 36.4 ?C (97.5 ?F) (Oral) Resp 20 Ht 160 cm (5' 3) Wt 100.3 kg (221 lb 1.9 oz) SpO2 89% BMI 39.17 kg/m? General: alert and oriented x3, lying in bed in NAD Cardiac: RRR, normal S1S2 Respiratory: clear B/L, on 2LNC Abdominal/GI: soft, non-tender Extremity: mild edema, chronic skin changes Skin: warm, dry Pulse/vascular exam: B/L + 2 rad/pt DATA: Diagnostic tests reviewed for today's visit: Most recent labs and imaging results. Most recent labs CBC, Coags, BMP, Mg, Phos Recent Labs 11/23/17 0855 11/23/17 0428 11/23/17 0028 11/22/17 1245 11/22/17 0450 11/21/17 0440 WBC 5.47 -- -- -- -- 4.12 4.16 HB 11.8 -- -- -- -- 9.7* 10.7* HCT 37.1 -- -- -- -- 30.0* 32.8* PLT 108* -- -- -- -- 59* 50* INR -- -- -- -- 1.1 -- -- APTT 48.3* 46.9* 43.2* < > 23.4 -- -- NA -- -- -- -- -- -- 142 K -- -- -- -- -- -- 3.9 CHLOR -- -- -- -- -- -- 104 CO2 -- -- -- -- -- -- 24 BUN -- -- -- -- -- -- 41* CREAT -- -- -- -- -- -- 1.26* GLUC -- -- -- -- -- -- 71* CA -- -- -- -- -- -- 8.1* MG -- -- -- -- -- -- 1.8 < > = values in this interval not displayed. 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 Hospital course further c/b severe thrombocytopenia and CAPRICE requiring dialysis. AC was held x 4 weeks, now resumed yesterday. Hematology following , patient has received apheresis, Nplate and cytoxan currently being held. Bival was started yesterday. Renal function has recovered. Hemoglobin stable and platelets continue to uptrend with no clinical signs of bleeding. Estimated Creatinine Clearance: 75.1 mL/min (A) (based on SCr of 1.26 mg/dL (H)). Plan discussed w/Dr. Roman: Continue with bival and begin with bridge to coumadin Okay with starting w/ 5mg of coumadin x 1 tonight aPTT 48.3 (46-65) therapeutic, continue with 0.1mg/kg/hr and repeat aPTT tomorrow morning. Please call [facility] [phone] if not within therapeutic range Bival and Coumadin should overlap for a minimum of 5 days and until INR is therapeutic before Bival can be discontinued. aPTTs, CBC/INR daily in house Duration of treatment: fpc SIGNATURE: Magdalena Lewis APRN.CNP PATIENT NAME: Paloma Cannon DATE: November 23, 2017 TIME: 10:50 AM PAGER/CONTACT #: [phone] . APTT Collected: 11/23/2017 Status: F Source: [place] 4:28 AM [facility] REPOSITORY TYPE CODE TESTS RESULT OUT OF RANGE REFERENCE UNITS LAB APTT 23.0-32.4 sec High APTT 46.9 Result Comment: Unfractionated Heparin Therapeutic Ranges: Standard Heparin Nomogram: 53 to 78 seconds (anti-Xa level of 0.3 to 0.7 U/ml) Low Dose/ACS Nomogram: 49 to 67 seconds (anti-Xa level of 0.2 to 0.5 U/ml) Stroke Treatment Nomogram: 49 to 67 seconds (anti-Xa level of 0.2 to 0.5 U/ml) Note: The APTT therapeutic range has been determined for the current lot of laboratory APTT reagent in use throughout the [facility]. Performed By: #### PTT #### [facility] [address], [place] [address] APTT Collected: 11/23/2017 Status: F Source: [place] 12:28 AM [facility] REPOSITORY TYPE CODE TESTS RESULT OUT OF RANGE REFERENCE UNITS LAB APTT 23.0-32.4 sec High APTT 43.2 Result Comment: Unfractionated Heparin Therapeutic Ranges: Standard Heparin Nomogram: 53 to 78 seconds (anti-Xa level of 0.3 to 0.7 U/ml) Low Dose/ACS Nomogram: 49 to 67 seconds (anti-Xa level of 0.2 to 0.5 U/ml) Stroke Treatment Nomogram: 49 to 67 seconds (anti-Xa level of 0.2 to 0.5 U/ml) Note: The APTT therapeutic range has been determined for the current lot of laboratory APTT reagent in use throughout the [facility]. Performed By: #### PTT #### [facility] [address] [place], [place] [address] APTT Collected: 11/22/2017 Status: F Source: [place] 9:08 PM [facility] REPOSITORY TYPE CODE TESTS RESULT OUT OF RANGE REFERENCE UNITS LAB APTT 23.0-32.4 sec High APTT 39.5 Result Comment: Unfractionated Heparin Therapeutic Ranges: Standard Heparin Nomogram: 53 to 78 seconds (anti-Xa level of 0.3 to 0.7 U/ml) Low Dose/ACS Nomogram: 49 to 67 seconds (anti-Xa level of 0.2 to 0.5 U/ml) Stroke Treatment Nomogram: 49 to 67 seconds (anti-Xa level of 0.2 to 0.5 U/ml) Note: The APTT therapeutic range has been determined for the current lot of laboratory APTT reagent in use throughout the [facility]. Performed By: #### PTT #### [facility] [address] [place], [place] [address] APTT Collected: 11/22/2017 Status: F Source: [place] 6:45 PM [facility] REPOSITORY TYPE CODE TESTS RESULT OUT OF REFERENCE UNITS RANGE LAB APTT 23.0-32.4 sec APTT Duplicate request Result Comment: Account Credited Performed By: #### PTT #### [facility] [address], [place] [address] PTT,ANTICOAG THERAPY Collected: 11/22/2017 Status: F Source: [place] 6:45 PM [facility] REPOSITORY TYPE CODE TESTS RESULT OUT OF RANGE REFERENCE UNITS LAB APTT 23.0-32.4 sec High APTT 37.1 Result Comment: Unfractionated Heparin Therapeutic Ranges: Standard Heparin Nomogram: 53 to 78 seconds (anti-Xa level of 0.3 to 0.7 U/ml) Low Dose/ACS Nomogram: 49 to 67 seconds (anti-Xa level of 0.2 to 0.5 U/ml) Stroke Treatment Nomogram: 49 to 67 seconds (anti-Xa level of 0.2 to 0.5 U/ml) Note: The APTT therapeutic range has been determined for the current lot of laboratory APTT reagent in use throughout the [facility]. Performed By: #### PTTAC #### [facility] [address] [place], [place] [address] PROGRESS Observed: 11/22/2017 Status: COMPLETED Source: [place] 5:48 PM [facility] REPOSITORY HNO ID: [id number] Author: Ros Wayne Service: General Internal Medicine Author Type: Physician Type: Progress Notes Filed: 11/22/2017 8:39 PM Note Text: RAF Terry PROGRESS NOTE For questions regarding this patient today please page [phone] After 5 pm on weekdays and 3pm on weekends and holidays please page documentation clerk pager [phone] SERVICE DATE: 11/22/2017 SERVICE TIME: 5:49 PM INTERVAL HISTORY: - No events overnight - increased gabapentin to 400 mg TID - started flexeril with improvement in pain symptoms - Uoutput ~900cc yesterday - refusing miralax. Approximately 2-3 days since last BM Labs Creatinine: 1.10-->1.40-->1.19-->1.29-->0.96-->1.1-->0.96-->0.88-->1.06-->1.08-->1.22-- >1.15-->1.26-->1.23-->1.25 Plt: 25-1u plt->34-->28-1u plt->34-->40-->26-1uplat->37-->43-->46-->42-->39-->45-->45-->50-->59 PLAN FOR TODAY - VM starting bivalirudin today - desaturation study required prior to discharge - PMANDR needs to reevaluate regarding disposition - c/w torsemide 20 mg qday MEDICATIONS: Current hospital medications: cphuxyjifgJJQQK-dqezwa-qkbprnuzd 10 mL oral liquid (BMX 1:1:1) 10 mL ORAL q 2 H PRN bivalirudin 250 mg in D5W 250 mL (ANGIOMAX) 0.05 mg/kg/hr INTRAVENOUS CONTINUOUS alteplase (CATHFLO) injection 2 mg 2 mg INTRALUMINAL ONCE gabapentin 400 mg cap(s) (NEURONTIN) 400 mg ORAL TID cyclobenzaprine 10 mg tab(s) (FLEXERIL) 10 mg ORAL AT BEDTIME cyclobenzaprine 10 mg tab(s) (FLEXERIL) 10 mg ORAL BID PRN NIFEdipine ER 60 mg tab(S) (PROCARDIA XL) 60 mg ORAL BID predniSONE 40 mg tab(s) (DELTASONE) 40 mg ORAL/FEEDING TUBE DAILY HYDROmorphone 0.3 mg in NaCl 0.9% (DILAUDID) 0.3 mg INTRAVENOUS q 6 H PRN acetaminophen 1,000 mg tab(s) (TYLENOL) 1,000 mg ORAL TID torsemide 20 mg tab(s) (DEMADEX) 20 mg ORAL DAILY 0.9% NaCl 10 mL 10 mL INTRAVENOUS q 12 H 0.9% NaCl 20 mL 20 mL INTRAVENOUS PRN sodium citrate 4% 3-6 mL catheter lock 3-6 mL INTRALUMINAL APHERESIS PRN albuterol 2.5 mg /3 mL (0.083 %) 2.5 mg (PROVENTIL) 2.5 mg INHALATION q 4 WEEKS pentamidine 300 mg nebulizer solution (NEBUPENT) 300 mg INHALATION q 4 WEEKS carvedilol 25 mg tab(s) (COREG) 25 mg ORAL/FEEDING TUBE BID w MEALS oxyCODONE IR 5-10 mg tab(s) (ROXICODONE) 5-10 mg ORAL/FEEDING TUBE q 4 H PRN lidocaine 5 % 1 Patch (LIDODERM) 1 Patch TRANSDERMAL DAILY lidocaine patch - REMOVE OTHER AT BEDTIME lidocaine - VERIFY PATCH OTHER q 8 H polyethylene glycol 3350 17 g packet (MIRALAX, GLYCOLAX) 17 g ORAL/FEEDING TUBE DAILY docusate sodium 100 mg cap(s) (COLACE) 100 mg ORAL BID senna 8.6 mg tab(s) (SENOKOT) 8.6 mg ORAL/FEEDING TUBE BID pantoprazole DR 40 mg tab(s) (PROTONIX) 40 mg ORAL DAILY (6 AM) ondansetron 8 mg tab(s) (ZOFRAN) 8 mg ORAL q 8 H PRN diphenhydrAMINE 50 mg (BENADRYL) 50 mg ORAL/FEEDING TUBE q 6 H PRN hydrocortisone sodium succinate (PF) 100 mg injection (Solu- CORTEF) 100 mg INTRAVENOUS q 4 H PRN diphenhydrAMINE 50 mg injection (BENADRYL) 50 mg INTRAVENOUS q 4 H PRN prochlorperazine 5 mg injection (COMPAZINE) 5 mg INTRAVENOUS q 6 H PRN dextrose 50% in water 25-50 mL syringe 12.5-25 g INTRAVENOUS PRN dextrose 40 % 15 g 15 g ORAL PRN glucagon 1 mg injection (GLUCAGEN) 1 mg SUBCUTANEOUS PRN HOME MEDICATIONS: cyclophosphamide (CYTOXAN) 50 mg capsule Take 150 mg by mouth once daily. diphenhydrAMINE (BENADRYL) 50 mg capsule Take 1 capsule by mouth every 6 hours as needed for Itching/Rash. gabapentin (NEURONTIN) 100 mg capsule Take 1 capsule by mouth three times daily for 7 days. ondansetron (ZOFRAN, HYDROCHLORIDE,) 8 mg tablet Take 8 mg by mouth every 8 hours as needed for Nausea/Vomiting. pantoprazole DR (PROTONIX) 40 mg tablet Take 40 mg by mouth daily at bedtime. sulfamethoxazole-trimethoprim (BACTRIM DS) 800-160 mg per tablet Take 1 tablet by mouth every Monday,Monday,Monday. fluticasone (FLONASE) 50 mcg/actuation nasal spray Use 1-2 Sprays in each nostril once daily as needed for Cold/Allergy Symptoms (starting in allergy season). senna 8.6 mg tab Take 1 tablet by mouth twice daily as needed. PHYSICAL EXAM: VITAL SIGNS Patient Vitals for the past 24 hrs: BP Temp Temp src Pulse Resp SpO2 11/22/17 1627 148/87 - - 88 - - 11/22/17 1423 122/66 36.8 ?C (98.2 ?F) Oral 77 19 91 % 11/22/17 0933 153/69 - - 96 - - 11/22/17 0901 161/86 36.5 ?C (97.7 ?F) Oral 89 19 93 % 11/22/17 0546 153/69 36.5 ?C (97.7 ?F) Oral 96 18 91 % 11/22/17 0100 126/75 36.7 ?C (98 ?F) Oral 73 18 92 % 11/21/17 2140 146/67 36.6 ?C (97.8 ?F) Oral 83 18 92 % 11/21/17 1800 150/69 36.7 ?C (98.1 ?F) Oral 80 18 93 % BP 150/83 Pulse 94 Temp 37.1 ?C (98.7 ?F) (Oral) Resp 19 Ht 160 cm (5' 3) Wt 100.8 kg (222 lb 3.6 oz) SpO2 92% BMI 39.37 kg/m? Temp (24hrs), Av.6 ?C (97.9 ?F), Min:36.5 ?C (97.7 ?F), Max:36.8 ?C (98.2 ?F) INTAKE/OUTPUT Intake/Output Summary (Last 24 hours) at 11/22/17 1808 Last data filed at 11/22/17 1700 Gross per 24 hour Intake 640.6 ml Output 254 ml Net 386.6 ml General: Alert, oriented, cooperative.?In no acute distress. 2L NC Skin:?Chronic skin changes on bilateral LE below the knee?due to lymphedema HEENT: EOM. Pupils equal, round and reactive Cardiovascular: RRR. No murmur Lungs: Minimal crepitations at the bases than prior Abdomen: Soft, non-tender, no masses or organomegaly Extremities: 2+ peripheral edema but improving,?+2 DP pulses bilaterally Neurological: Moving all extremities freely? LAB DATA: CBC, Coags, BMP, Mg, Phos Recent Labs 11/22/17 1245 11/22/17 0450 11/21/17 0440 11/20/17 0400 WBC -- 4.12 4.16 4.54 HB -- 9.7* 10.7* 11.3* HCT -- 30.0* 32.8* 34.7* PLT -- 59* 50* 45* INR 1.1 -- -- -- APTT 23.4 -- -- -- NA -- -- 142 144 K -- -- 3.9 4.1 CHLOR -- -- 104 101 CO2 -- -- 24 26 BUN -- -- 41* 43* CREAT -- -- 1.26* 1.25* GLUC -- -- 71* 78 CA -- -- 8.1* 8.9 MG -- -- 1.8 -- ASSESSMENT AND PLAN: Active Hospital Problems Diagnosis - Retroperitoneal hematoma Retroperitoneal bleed: s/p 7 units PRBCs s/p IR emobolization of left L3 artery at [facility] on 10/23 IR embolization of left L2 and L3 arteries on 10/26 CT abd/pel 10/31: RP bleed stable when compared to previous imaging from 10/27 LDH 1730, haptoglobin <10, Tbili 1.3- concern for hemolysis as well. Per heme, thrombocytopenia and anemia likely related to cytoxan with stressed BM Cytoxan reduced to 75 mg daily Plan: Continue to monitor HANDH and transfuse PRBC if Hb<7 or symptomatic Continue to hold Anticoagulation until approved by Vascular medicine- initially recommended holding AC for at least 14 days since last bleeding. 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 Has received stenting of IVC and iliacs along with endograft of IVC. 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 C/B extensive RP bleed s/p L2, L3 embolization. N-plate 11/09, 11/13 Received Apheresis on 11/03, 5/7 (heme following); patient is on [id number] (Mondays) schedule outpatient Plan: Holding Cytoxan 75 mg in setting of worsening thrombocytopenia Continue prednisone 60 mg with bactrim ppx Appreciate hematology and VM recs Plan is to start bivalrudin trial once platelets stabilize and bridge to coumadin - CAPRICE (acute kidney injury) (HCC) CAPRICE on CKD III, 2/2 contrast, now requiring dialysis First HD at [facility] on 10/25 with tunneled dialysis catheter placement followed by [address] Abdomen/pelvis from 10/26 showed occlusion of B/L renal veins, outflow not appreciated- could be attributing to CAPRICE and CKD Bladder scan Plan: Nephrology following- appreciate recommendations Daily BMPs to watch K, Na and phosphorus levels Renal dosing of medication Avoid excess fluids and nephrotoxic drugs - HTN (hypertension) Mildly decreased systolic function, diastolic function indeterminate on 10/13/17 ECHO. 10/28: Run of SBP in 200s overnight (likely d/t pain), given hydralazine however still consistently in 170s-180s 10/29: Still hypertensive, required 4 doses of hydralazine overnight Switched Amlodipine 10 mg to nifedipine 30mg on 11/10, and increased Coreg from 6.25 to 25 mg BID Plan: Nifedipine 60 mg BID and keeping Coreg at current dosing, can up titrate coreg if tolerating well (HR currently 80-100) Can consider adding PRN hydralazine for SBP>180 mm Hg, - Diffuse pulmonary alveolar hemorrhage Currently stable, no new episodes Has had 6 admissions recently for acute respiratory failure requiring mechanical ventilation Cytoxan was reduced from 150 to 75 mg due to concern for BM toxicity; renally dosed Decreased prednisone from 60 to 40 mg Plan: Continue to monitor respiratory status Continue oxygen therapy at 2L NC Holding Cytoxan in setting of worsening thrombocytopenia Continue Prednisone 40 mg daily Switched bactrim to pentamidine for ppx on 11/12 Will reach out to outpatient provider regarding switch to pentamidine from bactrim, per heme recs - Moraxella catarrhalis pneumonia (HCC) Had respiratory cultures growing Moraxella catarrhalis Received ceftriaxone 10/27-11/03- 7 days therapy WBC trended down from 21 K to 12K. Currently at baseline O2 requirement but still slightly tachypneic Completed course of ceftriaxone. Plan: Continue to monitor respiratory status closely BPH per RT Incentive spirometry - Peripheral neuropathy - History of heparin-induced thrombocytopenia Avoid all heparin products. - Weakness of left leg 11/02 Left leg weakness/parasthesia Likely related to lumbar nerve compression from large retroperitoneal hematoma Neurology was following, recommended no further intervention On gabapentin renally dosed. - Right groin pain 10/27: C/o acute pain this morning, access site for embolization at [facility], no erythema or induration appreciated on exam, exquisitely TTP Groin study showed no signs of PSA, known AV fistula visualized with retrograde flow, vascular med aware- no further recs 10/28: pain less severe, no physical exam findings Repeat Leg DVT shows no pseudoaneurysm Likely due to nerve compression/RP hematoma causing compressive symtpoms S/p R groin drain placed at [facility] on 10/24 s/p L groin drain placed at [facility] during embolization on 10/26 Plan: - Pain management-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 WAITER/[employer] as of transfer to [facility] - Will continue to wean dilaudid as pt tolerates, currently on Dilaudid 0.3 mg q4h PRN for pain, oxycodone PO PRN and gabapentin - IR consult for drain evaluation and removal on 11/05 MAINTENANCE: VTE PROPHYLAXIS:?will start bivalirudin today NEED FOR ZUNIGA- Removed 11/14/17 LINES: Double lumen dialysis catheter 10/25/17 Dispo-?[facility] v. Acute rehabilitation center This note is not final until staffed by the attending physician and authenticated by responsible provider. SIGNATURE: Olga Reyez MD PATIENT NAME: Paloma Cannon DATE: November 22, 2017 TIME: 5:49 PM PAGER: [phone] RAF Terry ATTENDING NOTE: Chart reviewed, patient seen and examined on 11/22 at 11am and fernandes elements of the history and physical were discussed in detail and confirmed with the resident team. I have reviewed the above note, examined the patient and agree with the documented findings and plan of care as listed in Dr Reyez's note. Any addendums above are in bold text. Assessment: On 10/23?L severe RP bleed from Left lumbar arteries while on [place], ?with embolization/coils to Left?L2 + L3 arteries, (10/23 + 10/26): ?s/p numerous RBC transfusions in early portion of hospitalization + bleeding has stabilized over the past 3 weeks + Pain in L LS area is improved Thrombocytopenia despite mult platelet tranfusions + ENDPLATE 11/09?+ 11/13 + DC?of Cytoxan (on 11/09) + Bactrim (on 11/12).. 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 ? Plan: Resume Bival today per VM Resume Coumadin on 11/23 ENDPLATE to be give this week per HEME + Last PLEX was given on 11/13?and next?due 11/27 Ros Wayne MD FACP Attending, pager [phone] [facility] Observed: 11/22/2017 Status: COMPLETED Source: [place] 5:00 PM [facility] REPOSITORY HNO ID: [id number] Author: Negrtio Kelley (Therapist) Miranda Service: Art Therapy Author Type: Therapist Type: Allied Health Filed: 11/22/2017 5:01 PM Note Text: ART THERAPY NOTE SERVICE DATE: 11/22/2017 SERVICE TIME: 10:50 Referred By: PT Reason for Referral: anxiety COMMENTS: Pt unavailable as another provider ws bedside. Did not disturb. Will follow up as able. SIGNATURE: Negrito Jean, ATR-BC, PC PATIENT NAME: Paloma Cannon DATE: November 22, 2017 TIME: 5:00 PM PAGER/CONTACT #: [phone] CONSULT PROG Observed: 11/22/2017 Status: COMPLETED Source: [place] 4:01 PM [facility] REPOSITORY HNO ID: [id number] Author: Justina Pollard (Pa) Service: Hematology Author Type: Physician Satellite Tv Technician Installer Type: Consult Progress Note Filed: 11/22/2017 4:06 PM Note Text: CONSULT PROGRESS NOTE SERVICE DATE: 11/22/2017 CONSULTING SERVICE: Hematology Subjective INTERVAL HPI: PLT count was up to 59 K today Current hospital medications: [id number]-bglcsz-vkuglpzaq 10 mL oral liquid (BMX 1:1:1) 10 mL ORAL q 2 H PRN bivalirudin 250 mg in D5W 250 mL (ANGIOMAX) 0.05 mg/kg/hr INTRAVENOUS CONTINUOUS alteplase (CATHFLO) injection 2 mg 2 mg INTRALUMINAL ONCE gabapentin 400 mg cap(s) (NEURONTIN) 400 mg ORAL TID cyclobenzaprine 10 mg tab(s) (FLEXERIL) 10 mg ORAL AT BEDTIME cyclobenzaprine 10 mg tab(s) (FLEXERIL) 10 mg ORAL BID PRN NIFEdipine ER 60 mg tab(S) (PROCARDIA XL) 60 mg ORAL BID predniSONE 40 mg tab(s) (DELTASONE) 40 mg ORAL/FEEDING TUBE DAILY HYDROmorphone 0.3 mg in NaCl 0.9% (DILAUDID) 0.3 mg INTRAVENOUS q 6 H PRN acetaminophen 1,000 mg tab(s) (TYLENOL) 1,000 mg ORAL TID torsemide 20 mg tab(s) (DEMADEX) 20 mg ORAL DAILY 0.9% NaCl 10 mL 10 mL INTRAVENOUS q 12 H 0.9% NaCl 20 mL 20 mL INTRAVENOUS PRN sodium citrate 4% 3-6 mL catheter lock 3-6 mL INTRALUMINAL APHERESIS PRN albuterol 2.5 mg /3 mL (0.083 %) 2.5 mg (PROVENTIL) 2.5 mg INHALATION q 4 WEEKS pentamidine 300 mg nebulizer solution (NEBUPENT) 300 mg INHALATION q 4 WEEKS carvedilol 25 mg tab(s) (COREG) 25 mg ORAL/FEEDING TUBE BID w MEALS oxyCODONE IR 5-10 mg tab(s) (ROXICODONE) 5-10 mg ORAL/FEEDING TUBE q 4 H PRN lidocaine 5 % 1 Patch (LIDODERM) 1 Patch TRANSDERMAL DAILY lidocaine patch - REMOVE OTHER AT BEDTIME lidocaine - VERIFY PATCH OTHER q 8 H polyethylene glycol 3350 17 g packet (MIRALAX, GLYCOLAX) 17 g ORAL/FEEDING TUBE DAILY docusate sodium 100 mg cap(s) (COLACE) 100 mg ORAL BID senna 8.6 mg tab(s) (SENOKOT) 8.6 mg ORAL/FEEDING TUBE BID pantoprazole DR 40 mg tab(s) (PROTONIX) 40 mg ORAL DAILY (6 AM) ondansetron 8 mg tab(s) (ZOFRAN) 8 mg ORAL q 8 H PRN diphenhydrAMINE 50 mg (BENADRYL) 50 mg ORAL/FEEDING TUBE q 6 H PRN hydrocortisone sodium succinate (PF) 100 mg injection (Solu- CORTEF) 100 mg INTRAVENOUS q 4 H PRN diphenhydrAMINE 50 mg injection (BENADRYL) 50 mg INTRAVENOUS q 4 H PRN prochlorperazine 5 mg injection (COMPAZINE) 5 mg INTRAVENOUS q 6 H PRN dextrose 50% in water 25-50 mL syringe 12.5-25 g INTRAVENOUS PRN dextrose 40 % 15 g 15 g ORAL PRN glucagon 1 mg injection (GLUCAGEN) 1 mg SUBCUTANEOUS PRN Objective PHYSICAL EXAM: BP 122/66 Pulse 77 Temp (Src) 98.2 (Oral) Resp 19 Ht 5' 3 (1.60m) Wt 222 lb 3.6 oz (100.8kg) SpO2 91% BMI 39.38 kg/(m2). General: Alert, NAD. Heart/CV: ?Grossly RRR Lungs: CTA Abd: ?Soft, NT,ND Extremities/Skin: No rashes appreciated DATA: Component Latest Ref Rng AND Units 11/19/2017 11/20/2017 11/21/2017 11/22/2017 WBC 3.70 - 11.00 k/uL 3.54 (L) 4.54 4.16 4.12 RBC 3.90 - 5.20 m/uL 3.30 (L) 3.33 (L) 3.18 (L) 2.89 (L) Hemoglobin 11.5 - 15.5 g/dL 11.0 (L) 11.3 (L) 10.7 (L) 9.7 (L) Hematocrit 36.0 - 46.0 % 34.0 (L) 34.7 (L) 32.8 (L) 30.0 (L) MCV 80.0 - 100.0 fL 103.0 (H) 104.2 (H) 103.1 (H) 103.8 (H) MCH 26.0 - 34.0 pG 33.3 33.9 33.6 33.6 MCHC 30.5 - 36.0 g/dL 32.4 32.6 32.6 32.3 RDW-CV 11.5 - 15.0 % 24.3 (H) 23.9 (H) 23.3 (H) 23.0 (H) Platelet Count 150 - 400 k/uL 45 (L) 45 (L) 50 (L) 59 (L) MPV 9.0 - 12.7 fL <<DO NOT REPORT>> <<DO NOT REPORT>> <<DO NOT REPORT>> 13.3 (H) Absolute nRBC <0.01 k/uL 0.02 (H) <0.01 0.02 (H) <0.01 Impression/Recommendations 27 y/o female?with PMHx of 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 Recent admission 10/13/17-10/23/17 for hemoptysis and SOB, requiring intubation, was in MICU for management of DAH. readmitted to MICU again for ?extensive left retroperitoneal hemorrhage?s/p IR guided intervention (initially on 10/23 at [facility] and 10/26 here at [facility]. ? # Antiphospholipid antibody syndrome -recent?home therapy : Prednisone 60 mg ( home dose 5 mg), Cytoxan 75 mg ( home dose 150 mg), pheresis QOW -Continue prednisone 40 mg o dialy ( SD 11/21) ?-Cytoxan stopped on 11/09 given persistent thrombocytopenia as this might he causing myelosuppression ?-Next PLEX due 11/27 ?-given N plate 2mcg/kg sq x1 on 11/09 , 3 mcg/kg on 11/13, and 4 mcg/kg on 11/17 ?-AC has been on hold due to recent bleeding and persistent thrombocytopenia, platelet count is improving, she is being started on Bival today, appreciate vascular medicine assistance ?#Extensive left retroperitoneal hemorrhage -likely secondary to anticoagulant. Its an unfortunate case, she needs an anticoagulation for APS but bleeding episodes prohibits -sp IR intevention on 10/23 and 10/26? -Hemoglobin has been stable, would decrease transfusion threshold for platelet?if PLT count <20 K ? #Abnormal hemolysis labs - with elevated LD, elevated retic, and an undetectable hapto. Hemoglobin has been stable. - ?Direct [place] is negative -ADAMTS 13 activity resulted at 56 % speaking against TTP -Abnormal hemolysis labs likely?related to resolving hematoma. ? SIGNATURE: Justina Pollard PA-C PATIENT NAME: Paloma Cannon DATE: November 22, 2017 TIME: 4:01 PM PAGER: [phone] THERAPY NT Observed: 11/22/2017 Status: COMPLETED Source: [place] 3:27 PM [facility] REPOSITORY HNO ID: [id number] Author: Tamiko (Pt) Adelaida Service: Physical Therapy Author Type: Physical Therapist Type: Therapy (PT/OT/Speech/Resp) Filed: 11/22/2017 3:32 PM Note Text: Physical Therapy Wound/Lymph Treatment SERVICE DATE: 11/22/2017 SERVICE TIME: 1430 to 1453 ROOM: [place] [address] Recommended Discharge Disposition Comments: will require further assessment Anticipated Discharge Needs: Undetermined PT Recommendations to Nursing: With assist of 1 person;Transfer to/from chair;OOB for Meals 6 Clicks Score: 14 Skin Condition: BLE lymphedema Frequency of Dressing Change:Daily?- compression wraps to be worn during the day hours ?Physical Therapy to Perform Dressing Change: 4x/week to be coordinated with nursing ?Nursing to Perform Dressing Change:1x/day Monday and Monday Dressing/Treatment Type: See Clinical Documentation report for specific dressing information. ASSESSMENT : Patient making progress as evidenced by decreased circumferential measurements today. ?Pt is now tolerating compression for up to 12 hours daily.?Pt is physically unable to perform compression wrapping therefore will need to perform training with a family member. ?Plan to continue with current POC at this time. Patient Disposition at Start of Session: Supine in Bed Patient Disposition at End of Session: Supine in Bed;Call W[facility]er in Reach Tolerated Full Session Fatigue Physical Therapy Problem List: Cognitive Deficit;Education Deficit;Decreased Activity Tolerance;Decreased Strength;Functional Mobility Impairment Patient /Caregiver Goals: Unique to general PT Goals for Plan of Care: 1. ?Decongestion of BLE?with girth measurements decreased by 2-4?cm per segment to increase level of independence with functional mobility and ADL's, decrease pain, decrease recurrence of infection, improved range of motion and allow appropriate fit in compressive garment. ?? 2. ??Pt and/or caregiver will demonstrate compliance in knowledge of lymphedema precautions including meticulous skin and nail care to reduce risk of infection and further exacerbation. 3. ??Pt and/or caregiver will demonstrate the correct method of Lymphatic Bandaging/compression technique and independent understanding of the principles and theory of compression 4. ??Pt and/or caregiver will be independent in their exercise program to enchance Lymphatic flow and decongestion of the affected body parts 5. Patient/ Caregiver will be able to demonstrate competence with offloading recommendations and pressure relieving strategies 6. Patient/ Caregiver will be able to state the signs and symptoms of infection Progress Toward Goals: Progressing as expected Due To: medical status Rehab Potential: Fair PLAN: Treatment Frequency (times per week): 4 Current admission Treatment Interventions: Education;Self Care / Home Management;Joint Mobility;Strengthening;Functional Mobility Training;Balance Training;Edema Management;Pain Management Plan of Care developed with: Patient TREATMENT INTERVENTIONS: Interventions Provided: Manual Therapy (88414) Manual Therapy (84001) Treatment Minutes: 23 2 units Skilled Intervention: Manual skills to improve joint mobility, range of motion, and decrease pain. Educated patient on the following aspect of Complete Decongestive Therapy (CDT): 1.??Compressive Therapy: Discussed rationale for compression garment and bandaging Instructed in proper technique for compression wrapping Skilled interventions: - Increase lymaphtic fluid dynamics - Increase skin extensibility - Utilized anatomy knowledge of the therapist, and assessment of patient's response to intervention. ? Manual Compression performed: 1. ?Skin inspected and?cleansed thoroughly 2. ?Applied lotion?to BLE? 3. ?Applied 1 surgigrip?+ 1 ABD pad at the foot/ ankle + 1?surepress wraps applied at 50% tension?with a 50% overlap (deferred ankle padding today). ? Spoke at length with pt re: when to loosen or remove the bandages (i.e.: in the event that pain becomes a limiting factor or pt experienced new onset SOB or worsening of respiratory status). Pt verbalized understanding. ? Education: 1. ?Discussed with patient and nursing the risks and benefits of compression therapy and how compression is indicated in this case. 2. ?Educated patient/ caregiver?regarding rationale for compression wrapping and offloading. 3. ?Reviewed proper technique for compression wrapping.? Total Timed Code Treatment Minutes: 23 Total Treatment Time (minutes): 23 SUBJECTIVE: Current Hospital Course: Chart reviewed and no significant medical updates relevant to therapy were noted Patient Report: My legs feel good today. 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 Entry To Home: No Stairs Number Of Stairs To Bed/Bath: 0 Tub/Shower Type: walk in shower Equipment Owned: Commode-Raised;Grab Bars-Shower;Grab Bars-Toilet;Shower Chair;Home Oxygen Prior Functional Level: Required Assistance Assistance Required With: Cleaning;Laundry;Meals;Shopping;Transportation Prior Wound Care: Other: See Comment (unable to don compression stockings (I)) OBJECTIVE: ?? Location Date: 11/17/17 Date: 11/22/17 Right Left Right Left Metatarsal Heads 25.5cm 24cm 24cm 23cm Ankle ([place]) 24.5cm 24.5cm 21cm 22.25cm 10cm above malleoli 28.5cm 28.25cm 24cm 23cm 20cm above malleoli 44cm 40.5cm 36.5cm 34.5cm 30cm above malleoli 49cm 44.5cm 47cm 44cm ? Location Evaluation Date: ? 08/01/17 Date: ? 11/03/17 Date: 11/16/17 Right Left Right Left Right Left Metatarsal Heads 24cm 22.5cm 24cm 24cm 24cm 24.5cm Ankle ([place]) 23.25cm 22.5cm 24cm 25cm 24.5cm 25cm 10cm above malleoli 28.5cm 28cm 30cm 27.5cm 31cm 29.5cm 20cm above malleoli 42cm 43.25cm 42cm 40cm 46cm 42cm 30cm above malleoli 45.5cm 41.5cm 46cm 47cm 46cm 44.5cm LLE Circumferential Measurements: Metatarsal Heads;Ankle;10 cm;20 cm;30 cm Left Metatarsal Heads: 23cm Left Ankle: 22.25cm Left Lower Extremity 10cm: 23cm Left Lower Extremity 20cm: 34.5cm Left Lower Extremity 30cm: 44cm RLE Circumferential Measurements: Metatarsal Heads;Ankle;10 cm;20 cm;30 cm Right Metatarsal Heads: 24cm Right Ankle: 21cm Right Lower Extremity 10cm: 24cm Right Lower Extremity 20cm: 36.5cm Right Lower Extremity 30cm: 47cm Sensation Sensation: Right Lower Extremity;Left Lower Extremity Right Lower Extremity Sensation: Light Touch RLE Light Touch: Intact Left Lower Extremity Sensation: Light Touch LLE Light Touch: Intact Circulation Pulses: Right Dorsalis Pedis;Left Dorsalis Pedis Right Dorsalis Pedis Pulse: (unable to palpate due to lymphedema; present via doppler) Left Dorsalis Pedis Pulse: (unable to palpate due to lymphedema; present via doppler) Capillary Refill: Right Lower Extremity;Left Lower Extremity Right Lower Extremity Capillary Refill: Intact Left Lower Extremity Capillary Refill: Intact See Clinical Documentation report for Skin Documentation. Current Functional Mobility Assist Level Additional Information Rolling Contact Guard Assistance Supine to Sit Contact Guard Assistance Sit to Supine (up in chair) Scooting Contact Guard Assistance Sit to Stand Moderate Assistance (to minimal assist) Stand to Sit Minimal Assistance Bed to Chair Minimal Assistance Toilet/Commode Minimal Assistance Gait Minimal Assistance Gait Device: Wheeled Walker Gait Distance (feet): 4' x 2, 25', 40' General Gait Deviations: Delmy decreased;Flexed trunk posture;Wide base of support;Step length decreased;Lateral sway increased Balance: Static Sitting;Dynamic Sitting;Static Standing;Dynamic Standing Static Sitting Balance: Stand By Assistance Dynamic Sitting Balance: Contact Guard Assistance Static Standing Balance: Minimal Assistance Dynamic Standing Balance: Minimal Assistance Please see discipline specific clinical documentation flowsheet for complete details for this therapy evaluation/treatment. SIGNATURE: Tamiko Son PT PATIENT NAME: Paloma Cannon DATE: November 22, 2017 TIME: 3:27 PM PAGER/CONTACT #: [phone] CONSULT Observed: 11/22/2017 Status: COMPLETED Source: [place] 2:59 PM [facility] REPOSITORY HNO ID: [id number] Author: Lacey (Rn) JEFF Vicente Service: Wound Care Team Author Type: Registered Nurse Type: Consults Filed: 11/22/2017 3:15 PM Note Text: Wound Care Consult Team Assessment Note: PATIENT NAME: Paloma Cannon Reason for Assessment: To evaluate coccyx and skin Requested by: Nursing Assessment: per documented HANDP; 27 yo female admitted for left-sided abdominal pain. Hx HIT, DAH, CKD, neuropathy. Alert, oriented, pleasant. Obese, pale appearance. The skin care evaluation and assessment was done with Tana APRDO Position on arrival: back Type of Bed: [facility] Offloading devices present: none Wound description: 1. Coccyx; Not pressure related. Appears to be bruising located sl to R of coccyx. Intact dark purple skin with 3 small areas. No drainage. Surrounding skin intact. Platelet ct = 59K today. Bruises located on L lateral thigh, back as well. Wound photography: no Treatment choice: Using Critic aid clear barrier ointment Surgical Wound Service Consult: no Nutrition consult needed: already following Wound Etiology/Staging: Not pressure related. Bruising 2* co -morbidities. Wound Evaluation: Newly Identified Goals: Wound will not worsen Recommendations: 1. Coccyx, bilateral buttocks; Critic aid clear barrier ointment BID and as needed. 2. Upgrade bed to total care bariatric bed. (done). 3. Obtain TruVue boots ([employer] # [id number]) and use while in bed to offload heels. 4. Obtain positioning wedge ([employer] #[id number]) and use to offload coccyx with every 2 hour turns. 5. Continue skin prevention measures based on Festus risk assessment scores. Electronically Signed By: TIEN Delvalle RN CWCN [id number] [facility]; please re-consult as needed. CONSULT PROG Observed: 11/22/2017 Status: COMPLETED Source: [place] 2:05 PM [facility] REPOSITORY HNO ID: [id number] Author: Paulette Gooden (Elliott) Davonte Service: Vascular Medicine Author Type: Nurse Practitioner Type: Consult Progress Note Filed: 11/22/2017 2:18 PM Note Text: VASCMED CONSULT PROGRESS NOTE Subjective Follow Up Regarding: APS, remote hx of HIT INTERVAL HPI and PERTINENT ROS: platelets 59 hgb 9.7 INR 1.1 S: Sitting up in bed, legs are doing good w/wraps. denies hemoptysis, epistaxis, hematuria, hematochezia, or melena working w/PT and walked 25 feet. Current Facility-Administered Medications: ulnajeoicwKOZZU-ihmxqv-ctbmheiyq 10 mL oral liquid (BMX 1:1:1) 10 mL ORAL q 2 H PRN bivalirudin 250 mg in D5W 250 mL (ANGIOMAX) 0.05 mg/kg/hr INTRAVENOUS CONTINUOUS gabapentin 400 mg cap(s) (NEURONTIN) 400 mg ORAL TID cyclobenzaprine 10 mg tab(s) (FLEXERIL) 10 mg ORAL AT BEDTIME cyclobenzaprine 10 mg tab(s) (FLEXERIL) 10 mg ORAL BID PRN NIFEdipine ER 60 mg tab(S) (PROCARDIA XL) 60 mg ORAL BID predniSONE 40 mg tab(s) (DELTASONE) 40 mg ORAL/FEEDING TUBE DAILY HYDROmorphone 0.3 mg in NaCl 0.9% (DILAUDID) 0.3 mg INTRAVENOUS q 6 H PRN acetaminophen 1,000 mg tab(s) (TYLENOL) 1,000 mg ORAL TID torsemide 20 mg tab(s) (DEMADEX) 20 mg ORAL DAILY 0.9% NaCl 10 mL 10 mL INTRAVENOUS q 12 H 0.9% NaCl 20 mL 20 mL INTRAVENOUS PRN sodium citrate 4% 3-6 mL catheter lock 3-6 mL INTRALUMINAL APHERESIS PRN albuterol 2.5 mg /3 mL (0.083 %) 2.5 mg (PROVENTIL) 2.5 mg INHALATION q 4 WEEKS And pentamidine 300 mg nebulizer solution (NEBUPENT) 300 mg INHALATION q 4 WEEKS carvedilol 25 mg tab(s) (COREG) 25 mg ORAL/FEEDING TUBE BID w MEALS oxyCODONE IR 5-10 mg tab(s) (ROXICODONE) 5-10 mg ORAL/FEEDING TUBE q 4 H PRN lidocaine 5 % 1 Patch (LIDODERM) 1 Patch TRANSDERMAL DAILY And lidocaine patch - REMOVE OTHER AT BEDTIME And lidocaine - VERIFY PATCH OTHER q 8 H polyethylene glycol 3350 17 g packet (MIRALAX, GLYCOLAX) 17 g ORAL/FEEDING TUBE DAILY docusate sodium 100 mg cap(s) (COLACE) 100 mg ORAL BID senna 8.6 mg tab(s) (SENOKOT) 8.6 mg ORAL/FEEDING TUBE BID pantoprazole DR 40 mg tab(s) (PROTONIX) 40 mg ORAL DAILY (6 AM) ondansetron 8 mg tab(s) (ZOFRAN) 8 mg ORAL q 8 H PRN diphenhydrAMINE 50 mg (BENADRYL) 50 mg ORAL/FEEDING TUBE q 6 H PRN hydrocortisone sodium succinate (PF) 100 mg injection (Solu- CORTEF) 100 mg INTRAVENOUS q 4 H PRN diphenhydrAMINE 50 mg injection (BENADRYL) 50 mg INTRAVENOUS q 4 H PRN prochlorperazine 5 mg injection (COMPAZINE) 5 mg INTRAVENOUS q 6 H PRN dextrose 50% in water 25-50 mL syringe 12.5-25 g INTRAVENOUS PRN dextrose 40 % 15 g 15 g ORAL PRN glucagon 1 mg injection (GLUCAGEN) 1 mg SUBCUTANEOUS PRN Objective PHYSICAL EXAM: BP 153/69 Pulse 96 Temp 36.5 ?C (97.7 ?F) (Oral) Resp 19 Ht 160 cm (5' 3) Wt 100.8 kg (222 lb 3.6 oz) SpO2 93% BMI 39.37 kg/m? General: alert and oriented x3 Cardiac: RRR Respiratory: clear B/L Abdominal/GI: soft, non-tender Extremity: wraps on, mild edema, chronic skin changes Skin: warm, dry Pulse/vascular exam: B/L + 2 rad/pt DATA: Diagnostic tests reviewed for today's visit: Most recent labs and imaging results. 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 ??Other pertinent past medical history include HF and CKD. ?Her warfarin is followed by given her APS. ?Dr. Andujar manages her APS/plasmapheresis. Pt has had prolonged hospitalization since 10/23 after presenting w/severe abdominal pain and found to have large RP hematoma w/active extravasation requiring IR embolization 10/23 and 10/26. Pt has previous hospitalization in early October for DAH requiring intubation. This admission pt had severe thrombocytopenia and CAPRICE in the setting of profound anemia requiring transfusion. recommended to hold AC for minimum 4 weeks. Hematology also follows closely. Cytoxan was held in the setting of persistent thrombocyotpenia which may be contributing. Pt also received Nplate (11/09, 11/13, 11/17). Pt has now had platelets recovering, yesterday to 50,000. Recommended additional day of monitoring to ensure trend stayed stable. Today platelets are 59,000 and plan is to start bivalirudin. No signs of bleeding on exam. Kidney function has recovered Estimated Creatinine Clearance: 75.3 mL/min (A) (based on SCr of 1.26 mg/dL (H)). Plan discussed w/Dr. Roman: baseline aptt and INR today, prior to starting bivalirudin please insert PIV for bivalirudin infusion so that AC monitoring can be done through samantha will start bivalirudin at 0.05 mg/kg hr for goal aptt 46-65 check aptt 2hrs after gtt started and q2 hrs until therapeutic x2, then daily CBC/INR daily in house warfarin to be started after stable h/h on therapeutic bivalirudin (earliest tomorrow 11/23). SIGNATURE: Paulette Naranjo APRN.CNP PATIENT NAME: Paloma Cannon DATE: November 22, 2017 TIME: 2:05 PM PAGER/CONTACT #: [phone] . PROTIME Collected: 11/22/2017 Status: F Source: [place] 12:45 PM [facility] REPOSITORY TYPE CODE TESTS RESULT OUT OF RANGE REFERENCE UNITS LAB PSEC 9.7-13.0 sec PT Sec 10.9 LAB INR 0.9-1.3 PT INR 1.1 Result Comment: Vitamin K Antagonist (VKA) Therapeutic Range: INR 2 to 3 (Target INR of 2.5) Note: For patients treated with VKA drugs, such as warfarin, the [employer] 2012 Guideline recommends a therapeutic INR range of 2 to 3 (target INR of 2.5). This recommendation includes high-risk patients with antiphospholipid syndrome with previous arterial or venous thromboembolism, current-generation mechanical or bioprosthetic aortic heart valve replacement. Note: Patients with mechanical aortic valve replacement and additional risk factors for thromboembolic events (atrial fibrillation, previous thromboembolism, LV dysfunction, hypercoagulable conditions) or an older generation mechanical AVR (i.e., ball in-Cage) or any mechanical MVR should have a INR therapeutic range of 2.5 to 3.5 (target INR of 3). Michael GH, et al. Chest 2012, 141:7S-47S Diogenes RA, et al. [facility] 2017, 70: 252-289 Performed By: #### PT, PTT #### [facility] [address], [place] [address] APTT Collected: 11/22/2017 Status: F Source: [place] 12:45 PM [facility] REPOSITORY TYPE CODE TESTS RESULT OUT OF RANGE REFERENCE UNITS LAB APTT 23.0-32.4 sec APTT 23.4 Result Comment: Unfractionated Heparin Therapeutic Ranges: Standard Heparin Nomogram: 53 to 78 seconds (anti-Xa level of 0.3 to 0.7 U/ml) Low Dose/ACS Nomogram: 49 to 67 seconds (anti-Xa level of 0.2 to 0.5 U/ml) Stroke Treatment Nomogram: 49 to 67 seconds (anti-Xa level of 0.2 to 0.5 U/ml) Note: The APTT therapeutic range has been determined for the current lot of laboratory APTT reagent in use throughout the [facility]. Performed By: #### PT, PTT #### [facility] [address], [place] [address] ALLIED HEALTH Observed: 11/22/2017 Status: COMPLETED Source: [place] 11:35 AM [facility] REPOSITORY HNO ID: [id number] Author: Kayla Stewart (Therapist) GINA Levin Service: Music Therapy Author Type: Music Therapist Type: Allied Health Filed: 11/22/2017 4:20 PM Note Text: MUSIC THERAPY NOTE SERVICE DATE: 11/22/2017 SERVICE TIME: 11:35am Referred By: Rehab Therapies Reason for Referral: Anxiety Session Type: Follow Up Time Spent (minutes): 30 GOALS: Goals: Improve Coping;Increase Self-expression;Promote Feelings of Control Coping Items Addressed: Treatment;Hospitalization;Skills INTERVENTIONS: Interventions: Instrument Playing;Making Choices;Music Discussion Making Choices: Songs;Interventions Music-Assisted Relaxation: Breathing;Imagery Techniques While Listening To Music Listening Type: Live Response Before After Pain 04/18 02/16 Anxiety 07/19 07/19 Mood 07/13 0/4 Facial Behavior 1 - Neutral 0 - Smiling Body Movement 0 - No Movement/Appropriate Movement 0 - No Movement/Appropriate Movement Sleep N/A - Awake N/A - Awake Vocal 1 - Neutral/No Vocal 0 - Positive Scale: 0 = No pain/anxiety 10 = Worst possible pain/anxiety RESPONSE: Music Choices: Made Choices Number of Choices: 4 Response During Interventions: Knew Songs;Played Instrument;Smiling affect Music Used: Instrumental improvisation, Freebird Style of Music: Instrumental, Rock Family Present: No Patient's Verbal Response: Positive OUTCOME: Goals: Met Met: (As listed above. ) FOLLOW UP: Will Continue to Follow Pt presented with neutral affect upon MT's arrival and was sitting up in bed, agreeable to session. Pt has shared in previous sessions that she used to play the guitar and requested to play it today. Pt rated symptoms as shown above and expressed high level of pain, receiving pain medication at start of session. Pt began to play the guitar, remembering chords to a favorite song quickly and presented with smiling affect while playing. MT provided assistance with guitar techniques and hand/finger comfort as needed. Pt then engaged in instrumental improvisation on the guitar, consistently presenting with smiling affect and expressing enjoying playing the guitar again. Pt also engaged in discussion throughout session, sharing of her interests and her family with MT. MT offered to provide pt with a guitar to keep in her room until discharged, to which pt expressed excitement and was agreeable. Pt thanked MT for session at end of visit and reported improved mood and decreased pain perception. The effect of session on pain perception is unclear as pt received pain medication at start of session. MT provided loaner guitar in the afternoon and will follow up as able. SIGNATURE: PEREZ Dominguez PATIENT NAME: Paloma Cannon DATE: November 22, 2017 TIME: 4:15 PM PAGER/CONTACT #: [phone] CBC Collected: 11/22/2017 Status: F Source: [place] 4:50 AM [facility] REPOSITORY TYPE CODE TESTS RESULT OUT OF REFERENCE UNITS RANGE LAB WBC 3.70-11.00 k/uL WBC 4.12 LAB RBC 3.90-5.20 m/uL Low RBC 2.89 LAB HGB 11.5-15.5 g/dL Low Hemoglobin 9.7 LAB HCT 36.0-46.0 % Low Hematocrit 30.0 LAB MCV 80.0-100.0 fL MCV High 103.8 LAB MCH 26.0-34.0 pG MCH 33.6 LAB MCHC 30.5-36.0 g/dL MCHC 32.3 LAB RDWCV 11.5-15.0 % RDW-CV High 23.0 LAB PLTCT 150-400 k/uL Low Platelet Count 59 Result Comment: Result checked and verified No clot detected. LAB MPV 9.0-12.7 fL MPV High 13.3 LAB ABSNUC <0.01 k/uL Absolute nRBC <0.01 Performed By: #### CBC #### [facility] [address] [address] NURSING PROG Observed: 11/22/2017 Status: COMPLETED Source: [place] 4:09 AM [facility] REPOSITORY HNO ID: [id number] Author: Lisa (Rn) JEFF Bourgeois Service: Nursing Author Type: Registered Nurse Type: Nursing Progress Note Filed: 11/22/2017 4:11 AM Note Text: Nursing Progress Note Patient Name: Paloma Cannon Patient Location: H080 015/H080-16 Daily Note: Pt sleeping soundly majority of this night. PRN pain meds per SEP. On 3 L NC, satting wnl at this time. Call wagoner in reach. Pt aware of PRN BID flexeril. Surepress wraps taken off before bed. L groin dressing clean, dry and intact. Pt educated on importance of turning and skin integrity, pt verbalized understanding, refusing at times d/t comfort. No other concerns at this time. Call wagoner in reach. Bleeding precautions in place. This note was completed by: Lisa Bourgeois RN PROGRESS Observed: 11/21/2017 Status: COMPLETED Source: [place] 3:28 PM [facility] REPOSITORY HNO ID: [id number] Author: Ros Wayne Service: General Internal Medicine Author Type: Physician Type: Progress Notes Filed: 11/22/2017 6:22 AM Note Text: RAF Terry PROGRESS NOTE For questions regarding this patient today please page [phone] After 5 pm on weekdays and 3pm on weekends and holidays please page documentation clerk pager [phone] SERVICE DATE: 11/21/2017 SERVICE TIME: 3:28 PM INTERVAL HISTORY: - nocturnal oximetry 2-3L NC overnight - decreased prednisone to 40mg PO qday yesterday - decreased Uoutput but due to incorrect reporting - wants to hold AC until platelets remain >50 for another day Labs Creatinine: 1.10-->1.40-->1.19-->1.29-->0.96-->1.1-->0.96-->0.88-->1.06-->1.08-->1.22-- >1.15-->1.26-->1.23-->1.25 Plt: 25-1u plt->34-->28-1u plt->34-->40-->26-1uplat->37-->43-->46-->42-->39-->45-->45 PLAN FOR TODAY - increase gabapentin to 400mg TID - d/c skelexin - start flexeril qhs and PRN BID for back pain - c/w torsemide 20 mg qday - continue to hold bivalirudin while platelets are <50 - monitor BP - desaturation study required prior to discharge - PMANDR needs to reevaluate regarding disposition MEDICATIONS: Current hospital medications: gabapentin 400 mg cap(s) (NEURONTIN) 400 mg ORAL TID tiZANidine 8 mg tab(s) (ZANAFLEX) 8 mg ORAL TID NIFEdipine ER 60 mg tab(S) (PROCARDIA XL) 60 mg ORAL BID predniSONE 40 mg tab(s) (DELTASONE) 40 mg ORAL/FEEDING TUBE DAILY HYDROmorphone 0.3 mg in NaCl 0.9% (DILAUDID) 0.3 mg INTRAVENOUS q 6 H PRN acetaminophen 1,000 mg tab(s) (TYLENOL) 1,000 mg ORAL TID torsemide 20 mg tab(s) (DEMADEX) 20 mg ORAL DAILY 0.9% NaCl 10 mL 10 mL INTRAVENOUS q 12 H 0.9% NaCl 20 mL 20 mL INTRAVENOUS PRN sodium citrate 4% 3-6 mL catheter lock 3-6 mL INTRALUMINAL APHERESIS PRN albuterol 2.5 mg /3 mL (0.083 %) 2.5 mg (PROVENTIL) 2.5 mg INHALATION q 4 WEEKS pentamidine 300 mg nebulizer solution (NEBUPENT) 300 mg INHALATION q 4 WEEKS carvedilol 25 mg tab(s) (COREG) 25 mg ORAL/FEEDING TUBE BID w MEALS oxyCODONE IR 5-10 mg tab(s) (ROXICODONE) 5-10 mg ORAL/FEEDING TUBE q 4 H PRN lidocaine 5 % 1 Patch (LIDODERM) 1 Patch TRANSDERMAL DAILY lidocaine patch - REMOVE OTHER AT BEDTIME lidocaine - VERIFY PATCH OTHER q 8 H polyethylene glycol 3350 17 g packet (MIRALAX, GLYCOLAX) 17 g ORAL/FEEDING TUBE DAILY docusate sodium 100 mg cap(s) (COLACE) 100 mg ORAL BID senna 8.6 mg tab(s) (SENOKOT) 8.6 mg ORAL/FEEDING TUBE BID pantoprazole DR 40 mg tab(s) (PROTONIX) 40 mg ORAL DAILY (6 AM) ondansetron 8 mg tab(s) (ZOFRAN) 8 mg ORAL q 8 H PRN diphenhydrAMINE 50 mg (BENADRYL) 50 mg ORAL/FEEDING TUBE q 6 H PRN hydrocortisone sodium succinate (PF) 100 mg injection (Solu- CORTEF) 100 mg INTRAVENOUS q 4 H PRN diphenhydrAMINE 50 mg injection (BENADRYL) 50 mg INTRAVENOUS q 4 H PRN prochlorperazine 5 mg injection (COMPAZINE) 5 mg INTRAVENOUS q 6 H PRN dextrose 50% in water 25-50 mL syringe 12.5-25 g INTRAVENOUS PRN dextrose 40 % 15 g 15 g ORAL PRN glucagon 1 mg injection (GLUCAGEN) 1 mg SUBCUTANEOUS PRN HOME MEDICATIONS: cyclophosphamide (CYTOXAN) 50 mg capsule Take 150 mg by mouth once daily. diphenhydrAMINE (BENADRYL) 50 mg capsule Take 1 capsule by mouth every 6 hours as needed for Itching/Rash. gabapentin (NEURONTIN) 100 mg capsule Take 1 capsule by mouth three times daily for 7 days. ondansetron (ZOFRAN, HYDROCHLORIDE,) 8 mg tablet Take 8 mg by mouth every 8 hours as needed for Nausea/Vomiting. pantoprazole DR (PROTONIX) 40 mg tablet Take 40 mg by mouth daily at bedtime. sulfamethoxazole-trimethoprim (BACTRIM DS) 800-160 mg per tablet Take 1 tablet by mouth every Monday,Monday,Monday. fluticasone (FLONASE) 50 mcg/actuation nasal spray Use 1-2 Sprays in each nostril once daily as needed for Cold/Allergy Symptoms (starting in allergy season). senna 8.6 mg tab Take 1 tablet by mouth twice daily as needed. PHYSICAL EXAM: VITAL SIGNS Patient Vitals for the past 24 hrs: BP Temp Temp src Pulse Resp SpO2 Weight 11/21/17 1450 136/68 36.7 ?C (98 ?F) Oral 77 18 93 % - 11/21/17 0937 151/73 36.9 ?C (98.5 ?F) Oral 78 18 93 % - 11/21/17 0905 163/71 36.9 ?C (98.5 ?F) Oral 92 18 96 % - 11/21/17 0635 145/67 36.9 ?C (98.5 ?F) Oral 79 18 93 % - 11/21/17 0600 - - - - - - 100.8 kg (222 lb 3.6 oz) 11/21/17 0200 - - - - - 90 % - 11/21/17 0121 145/68 36.6 ?C (97.8 ?F) Oral 64 20 (!) 87 % - 11/20/17 2116 150/89 36.3 ?C (97.3 ?F) Axillary 85 18 91 % - 11/20/17 1822 164/72 36.3 ?C (97.4 ?F) Oral 76 20 96 % - BP 136/68 Pulse 77 Temp 36.7 ?C (98 ?F) (Oral) Resp 18 Ht 160 cm (5' 3) Wt 100.8 kg (222 lb 3.6 oz) SpO2 93% BMI 39.37 kg/m? Temp (24hrs), Av.7 ?C (98 ?F), Min:36.3 ?C (97.3 ?F), Max:36.9 ?C (98.5 ?F) INTAKE/OUTPUT Intake/Output Summary (Last 24 hours) at 11/21/17 1528 Last data filed at 11/21/17 1451 Gross per 24 hour Intake 920.9 ml Output 204 ml Net 716.9 ml General: Alert, oriented, cooperative, healthy appearance. In no acute distress. Skin: No rash, no lesions. Normal turgor, no bruising. HEENT: EOM. Pupils equal, round and reactive Cardiovascular: RRR. No murmur Lungs: Clear lung field. Respirations unlabored. Diaphragmatic excursion equal. No cough. Abdomen: Soft, non-tender, no masses or organomegaly Extremities: No edema, no calf tenderness Neurological: Gait normal. Normal cognition and motor skills. No weakness or sensory deficit Pulses: Radial and posterior tib pulses normal +2 LAB DATA: CBC, Coags, BMP, Mg, Phos Recent Labs 11/21/17 0440 11/20/17 0400 11/19/17 0423 WBC 4.16 4.54 3.54* HB 10.7* 11.3* 11.0* HCT 32.8* 34.7* 34.0* PLT 50* 45* 45* NA 142 144 142 K 3.9 4.1 3.3* CHLOR 104 101 102 CO2 24 26 24 BUN 41* 43* 44* CREAT 1.26* 1.25* 1.23* GLUC 71* 78 107* CA 8.1* 8.9 8.6 MG 1.8 -- -- ASSESSMENT AND PLAN: Active Hospital Problems Diagnosis - Retroperitoneal hematoma Retroperitoneal bleed: s/p 7 units PRBCs s/p IR emobolization of left L3 artery at [facility] on 10/23 IR embolization of left L2 and L3 arteries on 10/26 CT abd/pel 10/31: RP bleed stable when compared to previous imaging from 10/27 LDH 1730, haptoglobin <10, Tbili 1.3- concern for hemolysis as well. Per heme, thrombocytopenia and anemia likely related to cytoxan with stressed BM Cytoxan reduced to 75 mg daily Plan: Continue to monitor HANDH and transfuse PRBC if Hb<7 or symptomatic Continue to hold Anticoagulation until approved by Vascular medicine- initially recommended holding AC for at least 14 days since last bleeding. 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 Has received stenting of IVC and iliacs along with endograft of IVC. 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 C/B extensive RP bleed s/p L2, L3 embolization. N-plate 11/09, 11/13 Received Apheresis on 11/03, 11/13 (heme following); patient is on [id number] (Mondays) schedule outpatient Plan: Holding Cytoxan 75 mg in setting of worsening thrombocytopenia Continue prednisone 60 mg with bactrim ppx Appreciate hematology and VM recs Plan is to start bivalrudin trial once platelets stabilize and bridge to coumadin - CAPRICE (acute kidney injury) (HCC) CAPRICE on CKD III, 2/2 contrast, now requiring dialysis First HD at [facility] on 10/25 with tunneled dialysis catheter placement followed by [address] Abdomen/pelvis from 10/26 showed occlusion of B/L renal veins, outflow not appreciated- could be attributing to CAPRICE and CKD Bladder scan 10/29- Plan: Nephrology following- appreciate recommendations Daily BMPs to watch K, Na and phosphorus levels Renal dosing of medication Avoid excess fluids and nephrotoxic drugs - HTN (hypertension) Mildly decreased systolic function, diastolic function indeterminate on 10/13/17 ECHO. 10/28: Run of SBP in 200s overnight (likely d/t pain), given hydralazine however still consistently in 170s-180s 10/29: Still hypertensive, required 4 doses of hydralazine overnight Switched Amlodipine 10 mg to nifedipine 30mg on 11/10, and increased Coreg from 6.25 to 25 mg BID Plan: Nifedipine 60mg BID and keeping Coreg at current dosing, can up titrate coreg if tolerating well (HR currently 80-100) Can consider adding PRN hydralazine for SBP>180 mm Hg, - Diffuse pulmonary alveolar hemorrhage Currently stable, no new episodes Has had 6 admissions recently for acute respiratory failure requiring mechanical ventilation Cytoxan was reduced from 150 to 75 mg due to concern for BM toxicity; renally dosed Plan: Continue to monitor respiratory status Continue oxygen therapy at 2L NC Holding Cytoxan in setting of worsening thrombocytopenia Continue Prednisone 60 mg daily Switched bactrim to pentamidine for ppx on 11/12 Will reach out to outpatient provider regarding switch to pentamidine from bactrim, per heme recs - Moraxella catarrhalis pneumonia (HCC) Had respiratory cultures growing Moraxella catarrhalis Received ceftriaxone 10/27-11/03- 7 days therapy WBC trended down from 21 K to 12K. Currently at baseline O2 requirement but still slightly tachypneic Completed course of ceftriaxone. Plan: Continue to monitor respiratory status closely BPH per RT Incentive spirometry - Peripheral neuropathy - History of heparin-induced thrombocytopenia Avoid all heparin products. - Weakness of left leg 11/02 Left leg weakness/parasthesia Likely related to lumbar nerve compression from large retroperitoneal hematoma Neurology was following, recommended no further intervention On gabapentin renally dosed; 400mg TID - Right groin pain 10/27: C/o acute pain this morning, access site for embolization at [facility], no erythema or induration appreciated on exam, exquisitely TTP Groin study showed no signs of PSA, known AV fistula visualized with retrograde flow, vascular med aware- no further recs 10/28: pain less severe, no physical exam findings Repeat Leg DVT shows no pseudoaneurysm Likely due to nerve compression/RP hematoma causing compressive symtpoms S/p R groin drain placed at [facility] on 10/24 s/p L groin drain placed at [facility] during embolization on 10/26 Plan: - Pain management-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 [employer] as of transfer to [facility] - Will continue to wean dilaudid as pt tolerates, currently on Dilaudid 0.3 mg q4h PRN for pain, oxycodone PO PRN and gabapentin - IR consult for drain evaluation and removal on 11/05 MAINTENANCE: VTE PROPHYLAXIS:?will start AC when platelets are stable >50 NEED FOR ZUNIGA- Removed 11/14/17 LINES: Double lumen dialysis catheter 10/25/17 Dispo-?SNF v. Acute rehabilitation center This note is not final until staffed by the attending physician and authenticated by responsible provider. SIGNATURE: Olga Reyez MD PATIENT NAME: Paloma Cannon DATE: November 21, 2017 TIME: 3:28 PM PAGER: [phone] RAF Terry ATTENDING NOTE: Chart reviewed, patient seen and examined on 11/21 at 2pm and fernandes elements of the history and physical were discussed in detail and confirmed with the resident team. I have reviewed the above note, examined the patient and agree with the documented findings and plan of care as listed in Dr Reyez's note. ? Any addendums above are in bold text. ? Assessment: On 10/23 L severe RP bleed from Left lumbar arteries while on [place], ?with embolization/coils to Left?L2 + L3 arteries, (10/23 + 10/26): ?s/p numerous RBC transfusions in early portion of hospitalization + bleeding has stabilized Ongoing pain in L LS area appears to be muscular ? from resolving hematoma, better on Skelexin but this is causing lethargy ? Persistent thrombocytopenia despite mult platelet tranfusions + ENDPLATE 11/09?+ 11/13 + DC?of Cytoxan (on 11/09) + Bactrim (on 11/12).. platelet count today is 50K, (last?unit of platelets was?11/14) HTN control improved with cont of Coreg + increase of Procardia XL 60mg BID + Hx?of Catastrophic APS as noted above, she remains off AC due to persistent thrombocytopenia: (+ also has Hx of HIT) Resolved?Moraxella catarrhalis HCAP (?Ceftriaxone 10/28 to 11/03) Remains fluid overloaded but less so, ?back on?Demadex 20mg qAM, (resumed 11/13) CAPRICE on CKD on admission, renal function is holding stable at baseline Chronic LE edema due to chronic DVT, doing better with LE wraps ?? ? Plan: Same meds for now except: - DC Skelexin - Begin Flexeril 10mg qhs + prn during the day - same opiate pain regimen + Resume Bival soon, when OK with team Last PLEX was given on 11/13?and next?due 11/27 Cont Prednisone but decrease dose to 40mg qAM per Consulting teams + Addtl plans to follow ? Ros Wayne MD FACP Attending, pager [phone] ? THERAPY NT Observed: 11/21/2017 Status: COMPLETED Source: [place] 3:26 PM [facility] REPOSITORY HNO ID: [id number] Author: Tamiko (Pt) Adelaida Service: Physical Therapy Author Type: Physical Therapist Type: Therapy (PT/OT/Speech/Resp) Filed: 11/21/2017 3:31 PM Note Text: Physical Therapy Wound/Lymph Treatment SERVICE DATE: 11/21/2017 SERVICE TIME: 1417 to 1445 ROOM: [place] [address] Recommended Discharge Disposition Comments: will require further assessment Anticipated Discharge Needs: Undetermined PT Recommendations to Nursing: With assist of 1 person;Transfer to/from chair;OOB for Meals 6 Clicks Score: 14 Skin Condition: BLE lymphedema Frequency of Dressing Change:Daily?- compression wraps to be worn during the day hours ?Physical Therapy to Perform Dressing Change: 4x/week to be coordinated with nursing ?Nursing to Perform Dressing Change:1x/day Monday and Monday Dressing/Treatment Type: See Clinical Documentation report for specific dressing information. ASSESSMENT : Patient with visible redness and creases in the left ankle when bandages removed today which resolved in 5 minutes of having legs in a dependent position. Added passing to the foot/ ankle today in an effort to further pad this area and prevent skin breakdown. A dark blanchable area was noted along the posterior ankle therefore additional education provided re: offloading. Pt is now tolerating compression for up to 12 hours daily. Pt is physically unable to perform compression wrapping therefore will need to perform training with a family member. ?Plan to continue with current POC at this time. Patient Disposition at Start of Session: OOB in Chair Patient Disposition at End of Session: OOB in Chair;Call Wagoner in Reach Tolerated Full Session Fatigue Physical Therapy Problem List: Cognitive Deficit;Education Deficit;Decreased Activity Tolerance;Decreased Strength;Functional Mobility Impairment Patient /Caregiver Goals: Unique to general PT Goals for Plan of Care: 1. ?Decongestion of BLE?with girth measurements decreased by 2-4?cm per segment to increase level of independence with functional mobility and ADL's, decrease pain, decrease recurrence of infection, improved range of motion and allow appropriate fit in compressive garment. ?? 2. ??Pt and/or caregiver will demonstrate compliance in knowledge of lymphedema precautions including meticulous skin and nail care to reduce risk of infection and further exacerbation. 3. ??Pt and/or caregiver will demonstrate the correct method of Lymphatic Bandaging/compression technique and independent understanding of the principles and theory of compression 4. ??Pt and/or caregiver will be independent in their exercise program to enchance Lymphatic flow and decongestion of the affected body parts 5. Patient/ Caregiver will be able to demonstrate competence with offloading recommendations and pressure relieving strategies 6. Patient/ Caregiver will be able to state the signs and symptoms of infection Progress Toward Goals: Progressing as expected Due To: medical status Rehab Potential: Fair PLAN: Treatment Frequency (times per week): 4 Current admission Treatment Interventions: Education;Self Care / Home Management;Joint Mobility;Strengthening;Functional Mobility Training;Balance Training;Edema Management;Pain Management Plan of Care developed with: Patient TREATMENT INTERVENTIONS: Interventions Provided: Manual Therapy (39900) Manual Therapy (89630) Treatment Minutes: 28 2 units Skilled Intervention: Manual skills to improve joint mobility, range of motion, and decrease pain. Educated patient on the following aspect of Complete Decongestive Therapy (CDT): 1.??Compressive Therapy: Discussed rationale for compression garment and bandaging Instructed in proper technique for compression wrapping Skilled interventions: - Increase lymaphtic fluid dynamics - Increase skin extensibility - Utilized anatomy knowledge of the therapist, and assessment of patient's response to intervention. ? Manual Compression performed: 1. ?Skin inspected and?cleansed thoroughly 2. ?Applied lotion?to BLE? 3. ?Applied 1 surgigrip?+ 1 ABD pad at the foot/ ankle + 1?surepress wraps applied at 50% tension?with a 50% overlap (deferred ankle padding today). ? Spoke at length with pt re: when to loosen or remove the bandages (i.e.: in the event that pain becomes a limiting factor or pt experienced new onset SOB or worsening of respiratory status). Pt verbalized understanding. ? Education: 1. ?Discussed with patient and nursing the risks and benefits of compression therapy and how compression is indicated in this case. 2. ?Educated patient/ caregiver?regarding rationale for compression wrapping and offloading. 3. ?Reviewed proper technique for compression wrapping.? ? Total Timed Code Treatment Minutes: 28 Total Treatment Time (minutes): 28 SUBJECTIVE: Current Hospital Course: Chart reviewed and no significant medical updates relevant to therapy were noted Patient Report: Pt was agreeable to PT for lymphedema today. Pt requested to be seen OOB in w/c today. 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 Entry To Home: No Stairs Number Of Stairs To Bed/Bath: 0 Tub/Shower Type: walk in shower Equipment Owned: Commode-Raised;Grab Bars-Shower;Grab Bars-Toilet;Shower Chair;Home Oxygen Prior Functional Level: Required Assistance Assistance Required With: Cleaning;Laundry;Meals;Shopping;Transportation Prior Wound Care: Other: See Comment (unable to don compression stockings (I)) OBJECTIVE: ? Location Date: 11/17/17 Right Left Metatarsal Heads 25.5cm 24cm Ankle ([place]) 24.5cm 24.5cm 10cm above malleoli 28.5cm 28.25cm 20cm above malleoli 44cm 40.5cm 30cm above malleoli 49cm 44.5cm ? ? Location Evaluation Date: ? 08/01/17 Date: ? 11/03/17 Date: 11/16/17 Right Left Right Left Right Left Metatarsal Heads 24cm 22.5cm 24cm 24cm 24cm 24.5cm Ankle ([place]) 23.25cm 22.5cm 24cm 25cm 24.5cm 25cm 10cm above malleoli 28.5cm 28cm 30cm 27.5cm 31cm 29.5cm 20cm above malleoli 42cm 43.25cm 42cm 40cm 46cm 42cm 30cm above malleoli 45.5cm 41.5cm 46cm 47cm 46cm 44.5cm ? ? LLE Circumferential Measurements: Metatarsal Heads;Ankle;10 cm;20 cm;30 cm Left Metatarsal Heads: 24cm Left Ankle: 24.5cm Left Lower Extremity 10cm: 28.25cm Left Lower Extremity 20cm: 40.5cm Left Lower Extremity 30cm: 44.5cm RLE Circumferential Measurements: Metatarsal Heads;Ankle;10 cm;20 cm;30 cm Right Metatarsal Heads: 25.5cm Right Ankle: 24.5cm Right Lower Extremity 10cm: 28.5cm Right Lower Extremity 20cm: 44cm Right Lower Extremity 30cm: 49cm Sensation Sensation: Right Lower Extremity;Left Lower Extremity Right Lower Extremity Sensation: Light Touch RLE Light Touch: Intact Left Lower Extremity Sensation: Light Touch LLE Light Touch: Intact Circulation Pulses: Right Dorsalis Pedis;Left Dorsalis Pedis Right Dorsalis Pedis Pulse: (unable to palpate due to lymphedema; present via doppler) Left Dorsalis Pedis Pulse: (unable to palpate due to lymphedema; present via doppler) Capillary Refill: Right Lower Extremity;Left Lower Extremity Right Lower Extremity Capillary Refill: Intact Left Lower Extremity Capillary Refill: Intact See Clinical Documentation report for Skin Documentation. Current Functional Mobility Assist Level Additional Information Rolling Contact Guard Assistance Supine to Sit Contact Guard Assistance Sit to Supine (up in chair) Scooting Contact Guard Assistance Sit to Stand Moderate Assistance (to minimal assist) Stand to Sit Minimal Assistance Bed to Chair Minimal Assistance Toilet/Commode Minimal Assistance Gait Minimal Assistance Gait Device: Wheeled Walker Gait Distance (feet): 4' x 2, 25', 40' General Gait Deviations: Delmy decreased;Flexed trunk posture;Wide base of support;Step length decreased;Lateral sway increased Balance: Static Sitting;Dynamic Sitting;Static Standing;Dynamic Standing Static Sitting Balance: Stand By Assistance Dynamic Sitting Balance: Contact Guard Assistance Static Standing Balance: Minimal Assistance Dynamic Standing Balance: Minimal Assistance Please see discipline specific clinical documentation flowsheet for complete details for this therapy evaluation/treatment. SIGNATURE: Tamiko Son PT PATIENT NAME: Paloma Cannon DATE: November 21, 2017 TIME: 3:26 PM PAGER/CONTACT #: [phone] CASE MANAGEM Observed: 11/21/2017 Status: COMPLETED Source: [place] 11:49 AM [facility] REPOSITORY HNO ID: [id number] Author: Jacinta SanchezRn) JEFF Olmedo Service: Care Management Author Type: Registered Nurse Type: Care Mgt Progress Note Filed: 11/21/2017 11:51 AM Note Text: CARE MANAGEMENT PROGRESS NOTE SERVICE DATE: 11/21/2017 SERVICE TIME: .now LOS: 27 days Needs Prior to Discharge: To Be Determined;Accepting Facility;Bed Availability;Discharge Transportation;Precertification Per [place] liason, pt must be completely off bival prior to transition to [place]. Will need precert. .AwaitingPMANDR re-eval snf vs [facility]. Per Gissell Main [place] Liason (p) [phone] unable to accept. Referal sent to [facility] (via [facility] as central number (p) [phone] and f) [phone]) for review at direction of [facility] liason (pt agreeable) IF accepted, [facility] would request pt to receive aphersis in house prior to dc. Primary team informed and will try to accommodate. Per , at dc pt will need apheresis q 2 weeks indefinitely and close daily lab montoring of blood status for possible need for transfusion . Current on 3LO2/nc, [facility] [address] [facility] CM is Elsa Matos (p) - updated on dc plan.Per Elsa, precert phone # is [phone]. CM to continue to follow SIGNATURE: Jacinta Olmedo RN PATIENT NAME: Paloma Cannon DATE: November 21, 2017 TIME: 11:49 AM PAGER/CONTACT #: [phone] NURSING PROG Observed: 11/21/2017 Status: COMPLETED Source: [place] 11:05 AM [facility] REPOSITORY HNO ID: [id number] Author: Tiffani (Rn) JEFF Hernadez Service: (none) Author Type: Registered Nurse Type: Nursing Progress Note Filed: 11/21/2017 11:10 AM Note Text: Nursing Progress Note Patient Name: Paloma Cannon Patient Location: H080 015/H080-16 Daily Note: Pt is AANDOx3. VSS, afebrile, SAT's WNL at pt baseline on 3L NC with RT following. C/o pain to back, left flank, prn pain meds as well as lidocaine patch in place per order. Will monitor. Labs being monitored daily. OOB with x2 assistance with PT following. Currently in chair at this time. Will monitor. Q2 turns in place, pt does refuse at times with turning, educated on importance. Will monitor. Pt refuse miralax this am. Dr reyez made aware. Will monitor. Fall/safety prevention maintained; call light in reach. Skin prevention maintained. Will monitor. This note was completed by: Tiffani Hernadez RN THERAPY NT Observed: 11/21/2017 Status: COMPLETED Source: [place] 10:54 AM [facility] REPOSITORY O ID: [id number] Author: Indra Macias) [facility] Service: Physical Therapy Author Type: Ancillary Specialist Type: Therapy (PT/OT/Speech/Resp) Filed: 11/21/2017 11:03 AM Note Text: Attestation signed by Brenda Meraz at 11/21/2017 1:30 PM I reviewed and agree with the assessment as documented above. SIGNATURE: Brenda Meraz PT DATE: November 21, 2017 TIME: 1:29 PM Physical Therapy Treatment SERVICE DATE: 11/21/2017 SERVICE TIME: 947 to 1046 [facility]: [facility] Recommended Discharge Disposition: Acute Rehab Justification For Post Acute Needs: Anticipate that patient will require daily (5x/wk) skilled therapy in a post-acute facility setting at the time of acute hospital discharge;Willing to participate;Motivated;Anticipate patient will tolerate 3 hours of daily therapy at the time of admission to post-acute setting;Good family support Anticipated Discharge Needs: Undetermined PT Recommendations to Nursing: With assist of 1 person;Transfer to/from chair;OOB for Meals PT 6 Clicks Score: 15 Precautions/Activity Restrictions: Fall Risk;Lines/Tubes/Drains ASSESSMENT : Patient progressing well with functional mobility as demonstrated by increased distance and less assistance with ambulation. Patient desat with amb on 3 liters to 81% after 25', 88' after 40' improved to >92% within a few minutes with cues for breathing technique. ( nursing notified) at end of session 94% on 3 liters. Patient Disposition at Start of Session: Supine in Bed Patient Disposition at End of Session: OOB in Chair;Call Wagoner in Reach (nursing aware) Tolerated Full Session Fatigue Physical Therapy Problem List: Cognitive Deficit;Education Deficit;Decreased Activity Tolerance;Decreased Strength;Functional Mobility Impairment Patient /Caregiver Goals: Go Home Goals for Plan of Care: Rolling with: Independent Transfer supine to/from sit with: Independent Transfer sit to/from stand with: Contact Guard Assistance Ambulate with: Contact Guard Assistance Distance: 10 Device: Wheeled Walker Progress Toward Goals: Progressing as expected Due To: medical acuity varies level of assist needed Rehab Potential: Good PLAN: Treatment Frequency (times per week): 3 (1-2PRN) Treatment Duration (number): 2 Weeks Treatment Interventions: Education;Energy Conservation Training;Strengthening;Functional Mobility Training;Balance Training Plan of Care developed with: Patient TREATMENT INTERVENTIONS: Therapy Diagnosis: Reduced mobility-other Interventions Provided: Gait Training (09310);Therapeutic Activity (49084);Therapeutic Exercise (74694) Therapeutic Exercise (81139) Treatment Minutes: 15 1 unit Skilled Intervention(s): Patient instructed in and performed seated exercises: 10 reps with orange t-band: hamstring curl, LAQ, marching hip abduction, hip adduction with assist for minimal tactile and verbal cues for pacing and proper technique. Patient required rest breaks between each exercises due to fatigue. WC mobility (manual) for 40' with SBA with cues for proper technique cues for obstacle negotiation. Educated patient in reasoning for each exercise. Therapeutic Activity (22235) Treatment Minutes: 18 1 unit Skilled Intervention(s): Instructed patient in log roll technique- using bed rail Instructed and assisted patient in supine to sit pushing with upper extremities to sit up- with HOB raised Education with importance of OOB activities and pacing activity. Transfer training from bed to BSC; BSC to WC with walker with cues for walker management, balance, foot placement, trunk alignment and body positioning. Static standing for hygiene with CGA with cues for knee extension, forward gaze, trunk alignment and balance Gait Training (61123) Treatment Minutes: 23 2 units Skilled Intervention(s): Instruction in sit to stand technique with proper hand placement and body positioning at edge of bed/chair, Instruction in stand to sit technique with LE's touching chair/bed and reaching back for surface, Instruction in correction of gait deviations, Instruction in use of equipment, cues for sequence and pattern. Monitoring of oxygen on 3 liters desat with ambulation 81-88% improved to >92% with rest and breathing technique. Total Timed Code Treatment Minutes: 56 Total Treatment Time (minutes): 59 FUNCTIONAL G CODE: PT 6 Clicks Score: 15 (11/21/17 0948) Mobility: Walking and Moving Around Current Status (G8978): CL (11/02/17 1015) Mobility: Walking and Moving Around Goal Status (G8979): CK (11/02/17 1015) Based on clinical assessment and the score on the 6 Clicks Functional Assessment Tool, the G code and corresponding severity modifiers are documented above. SUBJECTIVE: Current Hospital Course: Chart reviewed and no significant medical updates relevant to therapy were noted Patient Report: I did 6 sit to stands. 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 Entry To Home: No Stairs Number Of Stairs To Bed/Bath: 0 Tub/Shower Type: walk in shower Equipment Owned: Commode-Raised;Grab Bars-Shower;Grab Bars-Toilet;Shower Chair;Home Oxygen Prior Functional Level: Required Assistance Assistance Required With: Cleaning;Laundry;Meals;Shopping;Transportation Prior Wound Care: Other: See Comment (unable to don compression stockings (I)) OBJECTIVE: CURRENT FUNCTIONAL STATUS: Current Functional Mobility Assist Level Additional Information Rolling Contact Guard Assistance Supine to Sit Contact Guard Assistance Sit to Supine (up in chair) Scooting Contact Guard Assistance Sit to Stand Moderate Assistance (to minimal assist) Stand to Sit Minimal Assistance Bed to Chair Minimal Assistance Toilet/Commode Minimal Assistance Gait Minimal Assistance Gait Device: Wheeled Walker Gait Distance (feet): 4' x 2, 25', 40' Stairs Curb Step Car Transfer General Gait Deviations: Delmy decreased;Flexed trunk posture;Wide base of support;Step length decreased;Lateral sway increased Balance: Static Sitting;Dynamic Sitting;Static Standing;Dynamic Standing Static Sitting Balance: Stand By Assistance Dynamic Sitting Balance: Contact Guard Assistance Static Standing Balance: Minimal Assistance Dynamic Standing Balance: Minimal Assistance Please see discipline specific clinical documentation flowsheet for complete details for this therapy evaluation/treatment. SIGNATURE: Indra Woods PTA PATIENT NAME: Paloma Cannon DATE: November 21, 2017 TIME: 10:54 AM PAGER/CONTACT #: [phone] PROGRESS Observed: 11/21/2017 Status: COMPLETED Source: [place] 9:46 AM [facility] REPOSITORY [facility] ID: [id number] Author: Tiffani Hernadez (Rn), RN Service: (none) Author Type: Registered Nurse Type: Progress Notes Filed: 11/21/2017 9:47 AM Note Text: Nursing Progress Note Vital Ict Development Manager Assessment Note Patient Name: Paloma Cannon Patient Location: H080 015/H080-16 Patient Vitals in the past 4 hrs: 11/21/17 0937, BP:151/73, Temp:36.9 ?C (98.5 ?F), Temp src:Oral, Pulse:78, Resp:18, SpO2:93 % 11/21/17 0905, BP:163/71, Temp:36.9 ?C (98.5 ?F), Temp src:Oral, Pulse:92, Resp:18, SpO2:96 % 11/21/17 0635, BP:145/67, Temp:36.9 ?C (98.5 ?F), Temp src:Oral, Pulse:79, Resp:18, SpO2:93 % 11/21/17 0600, Weight:100.8 kg (222 lb 3.6 oz) Status Change Related to: Respiratory Issues (See Nursing Clinical Assessment For Details) The Following People Were Notified: Attending Physician Caregiver/Provider: dr cyndi reyez See Documentation Related to: Continuous Monitoring Additional Comments : pt sats have been stable and continues with baseline This note was completed by: Tiffani Hernadez RN ALLIED HEALTH Observed: 11/21/2017 Status: COMPLETED Source: [place] 9:41 AM [facility] REPOSITORY HNO ID: [id number] Author: Allie Baig (Rn), RN Service: Wound/Ostomy Author Type: Registered Nurse Type: Allied Health Filed: 11/21/2017 9:42 AM Note Text: ET/WOCN Nursing Consult Topic: ET/WOCN Consultation Note ET Outcome: Previously pouching L groin wound. Pt no longer has pouch over wound states that drainage has stopped. No other needs from [facility] at this time. Please place consult in Epic if patients needs change Time Increment: 15 minutes Allie JOHNSONN RN WO Nursing WO Nursing - Please place consult via EPIC. Thank you. (M-F: [phone]; Weekends AND Holidays: 2300-1710). CONSULT PROG Observed: 11/21/2017 Status: COMPLETED Source: [place] 8:39 AM [facility] REPOSITORY HNO ID: [id number] Author: Justina Pollard (Pa) Service: Hematology Author Type: Physician Satellite Tv Technician Installer Type: Consult Progress Note Filed: 11/21/2017 4:02 PM Note Text: CONSULT PROGRESS NOTE SERVICE DATE: 11/21/2017 SERVICE TIME: 9:49 AM CONSULTING SERVICE: Hematology Subjective INTERVAL HPI: PLT couunt increased to 50 K today Current hospital medications: tiZANidine 8 mg tab(s) (ZANAFLEX) 8 mg ORAL TID NIFEdipine ER 60 mg tab(S) (PROCARDIA XL) 60 mg ORAL BID predniSONE 40 mg tab(s) (DELTASONE) 40 mg ORAL/FEEDING TUBE DAILY HYDROmorphone 0.3 mg in NaCl 0.9% (DILAUDID) 0.3 mg INTRAVENOUS q 6 H PRN gabapentin 400 mg cap(s) (NEURONTIN) 400 mg ORAL BID 9a/5p gabapentin 300 mg tab(s) (NEURONTIN) 300 mg ORAL AT BEDTIME acetaminophen 1,000 mg tab(s) (TYLENOL) 1,000 mg ORAL TID torsemide 20 mg tab(s) (DEMADEX) 20 mg ORAL DAILY 0.9% NaCl 10 mL 10 mL INTRAVENOUS q 12 H 0.9% NaCl 20 mL 20 mL INTRAVENOUS PRN sodium citrate 4% 3-6 mL catheter lock 3-6 mL INTRALUMINAL APHERESIS PRN albuterol 2.5 mg /3 mL (0.083 %) 2.5 mg (PROVENTIL) 2.5 mg INHALATION q 4 WEEKS pentamidine 300 mg nebulizer solution (NEBUPENT) 300 mg INHALATION q 4 WEEKS carvedilol 25 mg tab(s) (COREG) 25 mg ORAL/FEEDING TUBE BID w MEALS oxyCODONE IR 5-10 mg tab(s) (ROXICODONE) 5-10 mg ORAL/FEEDING TUBE q 4 H PRN lidocaine 5 % 1 Patch (LIDODERM) 1 Patch TRANSDERMAL DAILY lidocaine patch - REMOVE OTHER AT BEDTIME lidocaine - VERIFY PATCH OTHER q 8 H polyethylene glycol 3350 17 g packet (MIRALAX, GLYCOLAX) 17 g ORAL/FEEDING TUBE DAILY docusate sodium 100 mg cap(s) (COLACE) 100 mg ORAL BID senna 8.6 mg tab(s) (SENOKOT) 8.6 mg ORAL/FEEDING TUBE BID pantoprazole DR 40 mg tab(s) (PROTONIX) 40 mg ORAL DAILY (6 AM) ondansetron 8 mg tab(s) (ZOFRAN) 8 mg ORAL q 8 H PRN diphenhydrAMINE 50 mg (BENADRYL) 50 mg ORAL/FEEDING TUBE q 6 H PRN hydrocortisone sodium succinate (PF) 100 mg injection (Solu- CORTEF) 100 mg INTRAVENOUS q 4 H PRN diphenhydrAMINE 50 mg injection (BENADRYL) 50 mg INTRAVENOUS q 4 H PRN prochlorperazine 5 mg injection (COMPAZINE) 5 mg INTRAVENOUS q 6 H PRN dextrose 50% in water 25-50 mL syringe 12.5-25 g INTRAVENOUS PRN dextrose 40 % 15 g 15 g ORAL PRN glucagon 1 mg injection (GLUCAGEN) 1 mg SUBCUTANEOUS PRN Objective PHYSICAL EXAM: BP 145/67 Pulse 79 Temp (Src) 98.5 (Oral) Resp 18 Ht 5' 3 (1.60m) Wt 222 lb 3.6 oz (100.8kg) SpO2 93% BMI 39.38 kg/(m2). General: Alert, NAD. Heart/CV: ?Grossly RRR Lungs: CTA Abd: ?Soft, NT,ND Extremities/Skin: No rashes appreciated ? DATA: Component Latest Ref Rng AND Units 11/19/2017 11/20/2017 11/21/2017 WBC 3.70 - 11.00 k/uL 3.54 (L) 4.54 4.16 RBC 3.90 - 5.20 m/uL 3.30 (L) 3.33 (L) 3.18 (L) Hemoglobin 11.5 - 15.5 g/dL 11.0 (L) 11.3 (L) 10.7 (L) Hematocrit 36.0 - 46.0 % 34.0 (L) 34.7 (L) 32.8 (L) MCV 80.0 - 100.0 fL 103.0 (H) 104.2 (H) 103.1 (H) MCH 26.0 - 34.0 pG 33.3 33.9 33.6 MCHC 30.5 - 36.0 g/dL 32.4 32.6 32.6 RDW-CV 11.5 - 15.0 % 24.3 (H) 23.9 (H) 23.3 (H) Platelet Count 150 - 400 k/uL 45 (L) 45 (L) 50 (L) MPV 9.0 - 12.7 fL <<DO NOT REPORT>> <<DO NOT REPORT>> <<DO NOT REPORT>> Absolute nRBC <0.01 k/uL 0.02 (H) <0.01 0.02 (H) Impression/Recommendations 27 y/o female?with PMHx of 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 Recent admission 10/13/17-10/23/17 for hemoptysis and SOB, requiring intubation, was in MICU for management of DAH. readmitted to MICU again for ?extensive left retroperitoneal hemorrhage?s/p IR guided intervention (initially on 10/23 at [facility] and 10/26 here at [facility]. ? # Antiphospholipid antibody syndrome -recent?home therapy : Prednisone 60 mg ( home dose 5 mg), Cytoxan 75 mg ( home dose 150 mg), pheresis QOW -Continue prednisone 40 mg o dialy ( SD 11/21) ?-Cytoxan stopped on 11/09 given persistent thrombocytopenia as this might he causing myelosuppression ?-Next PLEX due 11/27 ?-given N plate 2mcg/kg sq x1 on 11/09 , 3 mcg/kg on 11/13, and 4 mcg/kg on 11/17 ?-AC has been on hold due to recent bleeding and persistent thrombocytopenia, discussed with vascular medicine team re.resuming AC today, however they would prefer to assure that platelet count remains >50K for another day prior resuming AC? ? ?#Extensive left retroperitoneal hemorrhage -likely secondary to anticoagulant. Its an unfortunate case, she needs an anticoagulation for APS but bleeding episodes prohibits -sp IR intevention on 10/23 and 10/26? -Hemoglobin has been stable, would decrease transfusion threshold for platelet?if PLT count <20 K ? #Abnormal hemolysis labs - with elevated LD, elevated retic, and an undetectable hapto. Hemoglobin has been stable. - ?Direct [place] is negative -ADAMTS 13 activity resulted at 56 % speaking against TTP -Abnormal hemolysis labs likely?related to resolving hematoma. ? SIGNATURE: Justina Pollard PA-C PATIENT NAME: Paloma Cannon DATE: November 21, 2017 TIME: 8:39 AM PAGER: [phone] CBC Collected: 11/21/2017 Status: F Source: [place] 4:40 AM [facility] REPOSITORY TYPE CODE TESTS RESULT OUT OF REFERENCE UNITS RANGE LAB WBC 3.70-11.00 k/uL WBC 4.16 LAB RBC 3.90-5.20 m/uL Low RBC 3.18 LAB HGB 11.5-15.5 g/dL Low Hemoglobin 10.7 LAB HCT 36.0-46.0 % Low Hematocrit 32.8 LAB MCV 80.0-100.0 fL MCV High 103.1 LAB MCH 26.0-34.0 pG MCH 33.6 LAB MCHC 30.5-36.0 g/dL MCHC 32.6 LAB RDWCV 11.5-15.0 % RDW-CV High 23.3 LAB PLTCT 150-400 k/uL Low Platelet Count 50 Result Comment: Result checked and verified No clot detected. LAB MPV 9.0-12.7 fL MPV <<DO NOT REPORT>> LAB ABSNUC <0.01 k/uL 0.02 High Absolute nRBC Performed By: #### CBC, BMP, MG1 #### [facility] [address] [place], [place] [address] BASIC METABOLIC PANL Collected: 11/21/2017 Status: F Source: [place] 4:40 AM [facility] REPOSITORY TYPE CODE TESTS RESULT OUT OF REFERENCE UNITS RANGE LAB GLU 74-99 mg/dL Low Glucose 71 Result Comment: The [place] [employer] (ADA) provides guidance for cutoff values for fasting glucose and random glucose. The ADA defines fasting as no caloric intake for at least 8 hours. Fas ting plasma glucose results between 100 to 125 mg/dL indicate increased risk for diabetes (prediabetes). Fasting plasma glucose results greater than or equal to 126 mg/dL meet the criteria for diagnosis of diabetes. In the absence of unequivocal hyperglycemia, results should be confirmed by repeat testing. In a patient with classic symptoms of hyperglycemia or hyperglycemic crisis, random plasma glucose results greater than or equal to 200 mg/dL meet the criteria for diagnosis of diabetes. Reference: Standards of Medical Care in Diabetes 2016, [place] [employer]. Diabetes Care. 2016.39(Suppl 1). LAB BUN 7-21 mg/dL BUN High 41 LAB CRET 0.58-0.96 mg/dL Creatinine High 1.26 LAB NA 136-144 mmol/L Sodium 142 LAB K 3.7-5.1 mmol/L Potassium 3.9 LAB CL 97-105 mmol/L Chloride 104 LAB CO2 22-30 mmol/L CO2 24 LAB AGAP 9-18 mmol/L Anion Gap 14 LAB CA 8.5-10.2 mg/dL Low Calcium, Total 8.1 LAB GFRAA eGFR- Amer. >60 LAB GFRNAA . eGFR-All Other Races 51 Result Comment: eGFR (Estimated GFR) Units of measure: mL/min/1.73 meters squared eGFR is derived from the reexpressed MDRD Study equation using the following parameters: serum creatinine, age, gender and race. The creatinine assay has been calibrated to be traceable to IDMS. An eGFR <60 mL/min/1.73m2 for >3 months is consistent with chronic kidney disease. Refer to KDOQI guidelines for clinical interpretation. In patients with unstable renal function, e.g. those with acute kidney injury, the eGFR may not accurately reflect actual GFR. Performed By: #### LIZETH, BMP, MG1 #### [facility] [address] [place], [place] [address] MAGNESIUM Collected: 11/21/2017 Status: F Source: [place] 4:40 AM [facility] REPOSITORY TYPE CODE TESTS RESULT OUT OF REFERENCE UNITS RANGE LAB MG 1.7-2.3 mg/dL Magnesium 1.8 Performed By: #### LIZETH, BMP, MG1 #### [facility] [employer] [address] [place], [place] [address] NURSING PROG Observed: 11/20/2017 Status: COMPLETED Source: [place] 11:42 PM [facility] REPOSITORY HNO ID: [id number] Author: Lisa Bourgeois (Rn), RN Service: Nursing Author Type: Registered Nurse Type: Nursing Progress Note Filed: 11/21/2017 6:31 AM Note Text: Nursing Progress Note Patient Name: Paloma Cannon Patient Location: [place] [address]/[id number] Daily Note: RT placed pt on pulse ox overnight trend, instructed by RT not to adjust O2 unless we notify them and that pt is to be 88% or greater, if she drops less than 88% for more than 5 minutes we can adjust O2 levels and inform RT. Will monitor pt. 0211: pt satting 85-87% for 5 minutes on 2 L. Increased pt to 3 [place] [phone] notifying of O2 increase. Pt sleeping at this time. Satting 89-91% on 3 L currently. Pt educated on importance of turning and skin care, pt understands, refusing throughout night d/t pt being comfortable and wanting to sleep. This note was completed by: Lisa Bourgeois, JEFF THERAPY NT Observed: 11/20/2017 Status: COMPLETED Source: [place] 4:01 PM [facility] REPOSITORY HNO ID: [id number] Author: Indra Woods (Donya) Service: Physical Therapy Author Type: Ancillary Specialist Type: Therapy (PT/OT/Speech/Resp) Filed: 11/20/2017 4:01 PM Note Text: Attestation signed by Brenda Meraz (Pt) at 11/21/2017 7:35 AM I reviewed and agree with the assessment as documented above. SIGNATURE: Brenda Meraz PT DATE: November 21, 2017 TIME: 7:34 AM PHYSICAL THERAPY MISSED VISIT SERVICE DATE: 11/20/2017 SERVICE TIME: 1600 to 1600 ROOM: [place] [address] Attempted Treatment. Patient not seen due to Other: See Comment (Out of room). SIGNATURE: Indra Woods PTA PATIENT NAME: Paloma Cannon DATE: November 20, 2017 TIME: 4:01 PM PAGER/CONTACT #: [phone] PROGRESS Observed: 11/20/2017 Status: COMPLETED Source: [place] 3:02 PM [facility] REPOSITORY HNO ID: [id number] Author: Ros Wayne Service: General Internal Medicine Author Type: Physician Type: Progress Notes Filed: 11/20/2017 8:50 PM Note Text: RAF Terry PROGRESS NOTE For questions regarding this patient today please page [phone] After 5 pm on weekdays and 3pm on weekends and holidays please page documentation clerk pager [phone] SERVICE DATE: 11/20/2017 SERVICE TIME: 3:03 PM INTERVAL HISTORY: - overnight team reports patient desaturated to mid-80s on 3L NC after exerting herself. CXR unremarkable - on 4L NC overnight, SBP 140-160s - continues to complain of left back pain Labs Creatinine: 1.10-->1.40-->1.19-->1.29-->0.96-->1.1-->0.96-->0.88-->1.06-->1.08-->1.22-- >1.15-->1.26-->1.23-->1.25 Plt: 25-1u plt->34-->28-1u plt->34-->40-->26-1uplat->37-->43-->46-->42-->39-->45-->45 PLAN FOR TODAY - c/w torsemide 20 mg qday - continue to hold bivalirudin while platelets are <50 - switch to nifedipine ER 60mg BID - increase tizanidine for back pain - desaturation study required prior to discharge - PMANDR needs to reevaluate regarding disposition - decreased prednisone to 40mg qday MEDICATIONS: Current hospital medications: tiZANidine 8 mg tab(s) (ZANAFLEX) 8 mg ORAL TID NIFEdipine ER 60 mg tab(S) (PROCARDIA XL) 60 mg ORAL BID HYDROmorphone 0.3 mg in NaCl 0.9% (DILAUDID) 0.3 mg INTRAVENOUS q 6 H PRN gabapentin 400 mg cap(s) (NEURONTIN) 400 mg ORAL BID 9a/5p gabapentin 300 mg tab(s) (NEURONTIN) 300 mg ORAL AT BEDTIME acetaminophen 1,000 mg tab(s) (TYLENOL) 1,000 mg ORAL TID torsemide 20 mg tab(s) (DEMADEX) 20 mg ORAL DAILY 0.9% NaCl 10 mL 10 mL INTRAVENOUS q 12 H 0.9% NaCl 20 mL 20 mL INTRAVENOUS PRN sodium citrate 4% 3-6 mL catheter lock 3-6 mL INTRALUMINAL APHERESIS PRN albuterol 2.5 mg /3 mL (0.083 %) 2.5 mg (PROVENTIL) 2.5 mg INHALATION q 4 WEEKS pentamidine 300 mg nebulizer solution (NEBUPENT) 300 mg INHALATION q 4 WEEKS carvedilol 25 mg tab(s) (COREG) 25 mg ORAL/FEEDING TUBE BID w MEALS oxyCODONE IR 5-10 mg tab(s) (ROXICODONE) 5-10 mg ORAL/FEEDING TUBE q 4 H PRN predniSONE (DELTASONE) tab(s) 60 mg 60 mg ORAL/FEEDING TUBE DAILY lidocaine 5 % 1 Patch (LIDODERM) 1 Patch TRANSDERMAL DAILY lidocaine patch - REMOVE OTHER AT BEDTIME lidocaine - VERIFY PATCH OTHER q 8 H polyethylene glycol 3350 17 g packet (MIRALAX, GLYCOLAX) 17 g ORAL/FEEDING TUBE DAILY docusate sodium 100 mg cap(s) (COLACE) 100 mg ORAL BID senna 8.6 mg tab(s) (SENOKOT) 8.6 mg ORAL/FEEDING TUBE BID pantoprazole DR 40 mg tab(s) (PROTONIX) 40 mg ORAL DAILY (6 AM) ondansetron 8 mg tab(s) (ZOFRAN) 8 mg ORAL q 8 H PRN diphenhydrAMINE 50 mg (BENADRYL) 50 mg ORAL/FEEDING TUBE q 6 H PRN hydrocortisone sodium succinate (PF) 100 mg injection (Solu- CORTEF) 100 mg INTRAVENOUS q 4 H PRN diphenhydrAMINE 50 mg injection (BENADRYL) 50 mg INTRAVENOUS q 4 H PRN prochlorperazine 5 mg injection (COMPAZINE) 5 mg INTRAVENOUS q 6 H PRN dextrose 50% in water 25-50 mL syringe 12.5-25 g INTRAVENOUS PRN dextrose 40 % 15 g 15 g ORAL PRN glucagon 1 mg injection (GLUCAGEN) 1 mg SUBCUTANEOUS PRN HOME MEDICATIONS: cyclophosphamide (CYTOXAN) 50 mg capsule Take 150 mg by mouth once daily. diphenhydrAMINE (BENADRYL) 50 mg capsule Take 1 capsule by mouth every 6 hours as needed for Itching/Rash. gabapentin (NEURONTIN) 100 mg capsule Take 1 capsule by mouth three times daily for 7 days. ondansetron (ZOFRAN, HYDROCHLORIDE,) 8 mg tablet Take 8 mg by mouth every 8 hours as needed for Nausea/Vomiting. pantoprazole DR (PROTONIX) 40 mg tablet Take 40 mg by mouth daily at bedtime. sulfamethoxazole-trimethoprim (BACTRIM DS) 800-160 mg per tablet Take 1 tablet by mouth every Monday,Monday,Monday. fluticasone (FLONASE) 50 mcg/actuation nasal spray Use 1-2 Sprays in each nostril once daily as needed for Cold/Allergy Symptoms (starting in allergy season). senna 8.6 mg tab Take 1 tablet by mouth twice daily as needed. PHYSICAL EXAM: VITAL SIGNS Patient Vitals for the past 24 hrs: BP Temp Temp src Pulse Resp SpO2 11/20/17 1400 116/64 36.7 ?C (98.1 ?F) Oral 80 20 92 % 11/20/17 1126 131/62 36.6 ?C (97.9 ?F) Oral 81 20 93 % 11/20/17 0950 168/78 36.8 ?C (98.3 ?F) Oral 102 20 93 % 11/20/17 0947 168/78 - - 102 - - 11/20/17 0630 148/68 36.7 ?C (98 ?F) Oral 82 20 - 11/20/17 0200 - - - - - 95 % 11/20/17 0153 162/81 36.8 ?C (98.3 ?F) Oral 86 20 90 % 11/19/17 2217 161/99 36.4 ?C (97.6 ?F) Oral 96 22 - 11/19/17 1725 158/83 37.1 ?C (98.8 ?F) Oral 81 20 94 % BP 116/64 Pulse 80 Temp 36.7 ?C (98.1 ?F) (Oral) Resp 20 Ht 160 cm (5' 3) Wt 100.6 kg (221 lb 12.5 oz) SpO2 92% BMI 39.29 kg/m? Temp (24hrs), Av.7 ?C (98.1 ?F), Min:36.4 ?C (97.6 ?F), Max:37.1 ?C (98.8 ?F) INTAKE/OUTPUT Intake/Output Summary (Last 24 hours) at 11/20/17 1503 Last data filed at 11/20/17 1312 Gross per 24 hour Intake 1270.6 ml Output 326 ml Net 944.6 ml General: Alert, oriented, cooperative.?In no acute distress. 2L NC Skin:?Chronic skin changes on bilateral LE below the knee?due to lymphedema HEENT: EOM. Pupils equal, round and reactive Cardiovascular: RRR. No murmur Lungs: Minimal crepitations at the bases than prior Abdomen: Soft, non-tender, no masses or organomegaly Extremities: 2+ peripheral edema but improving,?+2 DP pulses bilaterally Neurological: Moving all extremities freely? LAB DATA: CBC, Coags, BMP, Mg, Phos Recent Labs 11/20/17 0400 11/19/17 0423 11/18/17 0411 WBC 4.54 3.54* 3.47* HB 11.3* 11.0* 10.5* HCT 34.7* 34.0* 32.7* PLT 45* 45* 39* NA 144 142 142 K 4.1 3.3* 3.7 CHLOR 101 102 101 CO2 26 24 26 BUN 43* 44* 46* CREAT 1.25* 1.23* 1.26* GLUC 78 107* 101* CA 8.9 8.6 8.8 ASSESSMENT AND PLAN: Active Hospital Problems Diagnosis - Retroperitoneal hematoma Retroperitoneal bleed: s/p 7 units PRBCs s/p IR emobolization of left L3 artery at [facility] on 10/23 IR embolization of left L2 and L3 arteries on 10/26 CT abd/pel 10/31: RP bleed stable when compared to previous imaging from 10/27 LDH 1730, haptoglobin <10, Tbili 1.3- concern for hemolysis as well. Per heme, thrombocytopenia and anemia likely related to cytoxan with stressed BM Cytoxan reduced to 75 mg daily Plan: Continue to monitor HANDH and transfuse PRBC if Hb<7 or symptomatic Continue to hold Anticoagulation until approved by Vascular medicine- initially recommended holding AC for at least 14 days since last bleeding. 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 Has received stenting of IVC and iliacs along with endograft of IVC. 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 C/B extensive RP bleed s/p L2, L3 embolization. N-plate 11/09, 11/13 Received Apheresis on 11/03, 11/13 (heme following); patient is on t5cipud (Mondays) schedule outpatient Plan: Holding Cytoxan 75 mg in setting of worsening thrombocytopenia Continue prednisone 60 mg with bactrim ppx Appreciate hematology and VM recs Plan is to start bivalrudin trial once platelets stabilize and bridge to coumadin - CAPRICE (acute kidney injury) (HCC) CAPRICE on CKD III, 2/2 contrast, now requiring dialysis First HD at [facility] on 10/25 with tunneled dialysis catheter placement followed by [address] Abdomen/pelvis from 10/26 showed occlusion of B/L renal veins, outflow not appreciated- could be attributing to CAPRICE and CKD Bladder scan Plan: Nephrology following- appreciate recommendations Daily BMPs to watch K, Na and phosphorus levels Renal dosing of medication Avoid excess fluids and nephrotoxic drugs - HTN (hypertension) Mildly decreased systolic function, diastolic function indeterminate on 10/13/17 ECHO. 10/28: Run of SBP in 200s overnight (likely d/t pain), given hydralazine however still consistently in 170s-180s 10/29: Still hypertensive, required 4 doses of hydralazine overnight Switched Amlodipine 10 mg to nifedipine 30mg on 11/10, and increased Coreg from 6.25 to 25 mg BID Plan: Nifedipine 90mg daily -->60mg BID Keeping Coreg at current dosing, can up titrate coreg if tolerating well (HR currently 80-100) Can consider adding PRN hydralazine for SBP>180 mm Hg, - Diffuse pulmonary alveolar hemorrhage Currently stable, no new episodes Has had 6 admissions recently for acute respiratory failure requiring mechanical ventilation Cytoxan was reduced from 150 to 75 mg due to concern for BM toxicity; renally dosed Plan: Continue to monitor respiratory status Continue oxygen therapy at 2L NC Holding Cytoxan in setting of worsening thrombocytopenia Continue Prednisone 60 mg daily Switched bactrim to pentamidine for ppx on 11/12 Will reach out to outpatient provider regarding switch to pentamidine from bactrim, per heme recs - Moraxella catarrhalis pneumonia (HCC) Had respiratory cultures growing Moraxella catarrhalis Received ceftriaxone 10/27-11/03- 7 days therapy WBC trended down from 21 K to 12K. Currently at baseline O2 requirement but still slightly tachypneic Completed course of ceftriaxone. Plan: Continue to monitor respiratory status closely BPH per RT Incentive spirometry - Peripheral neuropathy - History of heparin-induced thrombocytopenia Avoid all heparin products. - Weakness of left leg 11/02 Left leg weakness/parasthesia Likely related to lumbar nerve compression from large retroperitoneal hematoma Neurology was following, recommended no further intervention On gabapentin renally dosed. - Right groin pain 10/27: C/o acute pain this morning, access site for embolization at [facility], no erythema or induration appreciated on exam, exquisitely TTP Groin study showed no signs of PSA, known AV fistula visualized with retrograde flow, vascular med aware- no further recs 10/28: pain less severe, no physical exam findings Repeat Leg DVT shows no pseudoaneurysm Likely due to nerve compression/RP hematoma causing compressive symtpoms S/p R groin drain placed at [facility] on 10/24 s/p L groin drain placed at [facility] during embolization on 10/26 Plan: - Pain management-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 [employer] as of transfer to [facility] - Will continue to wean dilaudid as pt tolerates, currently on Dilaudid 0.3 mg q4h PRN for pain, oxycodone PO PRN and gabapentin - IR consult for drain evaluation and removal on 11/05 MAINTENANCE: VTE PROPHYLAXIS:?will start bivalirudin most likely today NEED FOR ZUNIGA- Removed 11/14/17 LINES: Double lumen dialysis catheter 10/25/17 Dispo-?[facility] v. Acute rehabilitation center This note is not final until staffed by the attending physician and authenticated by responsible provider. SIGNATURE: Olga Reyez MD PATIENT NAME: Paloma Cannon DATE: November 20, 2017 TIME: 3:03 PM PAGER: [phone] RAF Terry ATTENDING NOTE: Chart reviewed, patient seen and examined on 11/20 at 1pm and fernandes elements of the history and physical were discussed in detail and confirmed with the resident team. I have reviewed the above note, examined the patient and agree with the documented findings and plan of care as listed in Dr Reyez's note. Any addendums above are in bold text. Assessment: as noted above Plan: agree with above Ros Wayne MD FACP Attending, pager [phone] CASE MANAGEM Observed: 11/20/2017 Status: COMPLETED Source: [place] 12:41 PM [facility] REPOSITORY HNO ID: [id number] Author: Renetta Villanueva Service: Care Management Author Type: (none) Type: Care Mgt Progress Note Filed: 11/20/2017 12:42 PM Note Text: CARE MANAGEMENT PROGRESS NOTE SERVICE DATE: 11/20/2017 SERVICE TIME: 12:02 PM LOS: 26 days IM letter given to patient on 11/20/17. SIGNATURE: Kael Banksrical Assistant PATIENT NAME: Paloma Cannon DATE: November 20, 2017 TIME: 12:41 PM PAGER/CONTACT #: [phone] THERAPY NT Observed: 11/20/2017 Status: COMPLETED Source: [place] 12:29 PM [facility] REPOSITORY HNO ID: [id number] Author: Akanksha Murdock (Otr/L) Service: Occupational Therapy Author Type: Occupational Therapist Type: Therapy (PT/OT/Speech/Resp) Filed: 11/20/2017 12:32 PM Note Text: Occupational Therapy Treatment SERVICE DATE: 11/20/2017 SERVICE TIME: 1140 to 1150 ROOM: [place] [address] Recommended Discharge Disposition: Acute Rehab Justification For Post Acute Needs: Anticipate patient will tolerate 3 hours of daily therapy at the time of admission to post-acute setting;Anticipated community discharge;Cognition intact;Good family support;Good premorbid functional status;Good sitting tolerance;Medically complex;Motivated;Willing to participate;Anticipate that patient will require daily (5x/wk) skilled therapy in a post-acute facility setting at the time of acute hospital discharge Anticipated Discharge Needs: Undetermined OT Recommendations to Nursing: ADL?s in chair;Bedside Commode for Toileting;With assist of 2 people Equipment: (TBD) OT 6 Clicks Score: 17 Precautions/Activity Restrictions: Fall Risk;Lines/Tubes/Drains ASSESSMENT: Patient presents with increased fatigue and pain this therapy session. Pt unable to complete entire session secondary to falling asleep during session. Will re-attempt this afternoon to complete session. Patient Disposition at Start of Session: Supine in Bed Patient Disposition at End of Session: Supine in Bed Tolerance Limited By Fatigue;Alertness Occupational Therapy Problem List: Edema;Impaired Self Care;Decreased Activity Tolerance;Decreased Strength;Functional Mobility Impairment;Balance Impaired Patient /Caregiver Goals: Go Home Goals for Plan of Care: Able to perform HEP with: Modified Independent (PROGRESSING) Grooming with: Modified Independent (PROGRESSING) Upper Body Bathing with: Modified Independent Upper Body Dressing with: Modified Independent Lower Body Bathing with: Modified Independent Lower Body Dressing with: Modified Independent (PROGRESSING) Toilet Hygiene with: Modified Independent Toilet Transfer with: Modified Independent Tolerate (minutes of functional activity): (MET) Functional Activity with: Modified Independent (PROGRESSING) Demonstrate Positive Coping Strategies with: Modified Independent (PROGRESSING) Demonstrate Competence With Education with: Modified Independent Progress Toward Goals: Progressing as expected Rehab Potential: Excellent PLAN: Treatment Frequency (times per week): 2 (+ 2 PRN per week) Current admission Treatment Interventions: Education;Self Care / Home Management;Energy Conservation Training;Strengthening;Functional Mobility Training;Balance Training;Edema Management;Pain Management Plan of Care developed with: Patient TREATMENT INTERVENTIONS: Therapy Diagnosis: Decreased activities of daily living (ADL) Interventions Provided: Therapeutic Exercise (79164) Therapeutic Exercise (24308) Treatment Minutes: 10 1 unit Skilled Intervention(s): Provided instruction on UE strengthening HEP. Pt completed the following UE exercises (bicep curls, shoulder abduction) requiring cueing for form and technique and cueing for attention to task. Total Timed Code Treatment Minutes: 10 Total Treatment Time (minutes): 10 FUNCTIONAL G CODE: OT 6 Clicks Score: 17 (11/20/17 1140) Self Care Current Status (G8987): CK (11/20/17 1140) Self Care Goal Status (G8988): CJ (11/20/17 1140) Based on clinical assessment and the score on the 6 Clicks Functional Assessment Tool, the G code and corresponding severity modifiers are documented above. 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, CKD, HF, HTN, polyneuropathy Patient Report: I did not sleep much last night 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 Entry To Home: No Stairs Number Of Stairs To Bed/Bath: 0 Tub/Shower Type: walk in shower Equipment Owned: Commode-Raised;Grab Bars-Shower;Grab Bars-Toilet;Shower Chair;Home Oxygen Prior Functional Level: Required Assistance Assistance Required With: Cleaning;Laundry;Meals;Shopping;Transportation Prior Wound Care: Other: See Comment (unable to don compression stockings (I)) OBJECTIVE: Orientation Deficits: Other: See Comment (Improved orientation to self and situation. NA time/day) Responsiveness: Alert Follows Commands: 3-step Commands;Cueing Needed Cueing to Follow Commands: Minimum Psychosocial Deficit: depressed, anxious CURRENT FUNCTIONAL STATUS: Current Activities of Daily Living Assist Level Feeding Set Up Grooming Set Up Bathing Upper Body Minimal Assistance Bathing Lower Body Moderate Assistance Dressing Upper Body Minimal Assistance Dressing Lower Body Total Assistance Toileting Moderate Assistance Instrumental Activities of Daily Living Assist Level Meal/Beverage Prep Light Cleaning Laundry Medication Management with Strategies Supervision Functional Mobility Assist Level Rolling Minimal Assistance Supine to Sit Minimal Assistance Sit to Supine Minimal Assistance Scooting Minimal Assistance Sit to Stand Maximal Assistance Stand to Sit Moderate Assistance Bed to Chair Other: See Comment (NA) Stand Pivot Wheeled Walker Toilet/Commode Maximal Assistance Functional Mobility Please see discipline specific clinical documentation flowsheet for complete details for this therapy evaluation/treatment. SIGNATURE: Akanksha Murdock OTR/L PATIENT NAME: Paloma Cannon DATE: November 20, 2017 TIME: 12:29 PM PAGER: [phone] CONSULT PROG Observed: 11/20/2017 Status: COMPLETED Source: [place] 10:04 AM [facility] REPOSITORY HNO ID: [id number] Author: Justina Pollard) Service: Hematology Author Type: Physician Satellite Tv Technician Installer Type: Consult Progress Note Filed: 11/20/2017 2:29 PM Note Text: CONSULT PROGRESS NOTE SERVICE DATE: 11/20/2017 CONSULTING SERVICE: Hematology Subjective INTERVAL HPI: platelet count 45 K today Current hospital medications: tiZANidine 8 mg tab(s) (ZANAFLEX) 8 mg ORAL TID NIFEdipine ER 60 mg tab(S) (PROCARDIA XL) 60 mg ORAL BID HYDROmorphone 0.3 mg in NaCl 0.9% (DILAUDID) 0.3 mg INTRAVENOUS q 6 H PRN gabapentin 400 mg cap(s) (NEURONTIN) 400 mg ORAL BID 9a/5p gabapentin 300 mg tab(s) (NEURONTIN) 300 mg ORAL AT BEDTIME acetaminophen 1,000 mg tab(s) (TYLENOL) 1,000 mg ORAL TID torsemide 20 mg tab(s) (DEMADEX) 20 mg ORAL DAILY 0.9% NaCl 10 mL 10 mL INTRAVENOUS q 12 H 0.9% NaCl 20 mL 20 mL INTRAVENOUS PRN sodium citrate 4% 3-6 mL catheter lock 3-6 mL INTRALUMINAL APHERESIS PRN albuterol 2.5 mg /3 mL (0.083 %) 2.5 mg (PROVENTIL) 2.5 mg INHALATION q 4 WEEKS pentamidine 300 mg nebulizer solution (NEBUPENT) 300 mg INHALATION q 4 WEEKS carvedilol 25 mg tab(s) (COREG) 25 mg ORAL/FEEDING TUBE BID w MEALS oxyCODONE IR 5-10 mg tab(s) (ROXICODONE) 5-10 mg ORAL/FEEDING TUBE q 4 H PRN predniSONE (DELTASONE) tab(s) 60 mg 60 mg ORAL/FEEDING TUBE DAILY lidocaine 5 % 1 Patch (LIDODERM) 1 Patch TRANSDERMAL DAILY lidocaine patch - REMOVE OTHER AT BEDTIME lidocaine - VERIFY PATCH OTHER q 8 H polyethylene glycol 3350 17 g packet (MIRALAX, GLYCOLAX) 17 g ORAL/FEEDING TUBE DAILY docusate sodium 100 mg cap(s) (COLACE) 100 mg ORAL BID senna 8.6 mg tab(s) (SENOKOT) 8.6 mg ORAL/FEEDING TUBE BID pantoprazole DR 40 mg tab(s) (PROTONIX) 40 mg ORAL DAILY (6 AM) ondansetron 8 mg tab(s) (ZOFRAN) 8 mg ORAL q 8 H PRN diphenhydrAMINE 50 mg (BENADRYL) 50 mg ORAL/FEEDING TUBE q 6 H PRN hydrocortisone sodium succinate (PF) 100 mg injection (Solu- CORTEF) 100 mg INTRAVENOUS q 4 H PRN diphenhydrAMINE 50 mg injection (BENADRYL) 50 mg INTRAVENOUS q 4 H PRN prochlorperazine 5 mg injection (COMPAZINE) 5 mg INTRAVENOUS q 6 H PRN dextrose 50% in water 25-50 mL syringe 12.5-25 g INTRAVENOUS PRN dextrose 40 % 15 g 15 g ORAL PRN glucagon 1 mg injection (GLUCAGEN) 1 mg SUBCUTANEOUS PRN Objective PHYSICAL EXAM: BP 116/64 Pulse 80 Temp 36.7 ?C (98.1 ?F) (Oral) Resp 20 Ht 160 cm (5' 3) Wt 100.6 kg (221 lb 12.5 oz) SpO2 92% BMI 39.29 kg/m? General: Alert, NAD. Heart/CV: ?Grossly RRR Lungs: CTA Abd: ?Soft, NT,ND Extremities/Skin: No rashes appreciated Diagnostic tests reviewed for today's visit: Component Latest Ref Rng AND Units 11/18/2017 11/19/2017 11/20/2017 WBC 3.70 - 11.00 k/uL 3.47 (L) 3.54 (L) 4.54 RBC 3.90 - 5.20 m/uL 3.18 (L) 3.30 (L) 3.33 (L) Hemoglobin 11.5 - 15.5 g/dL 10.5 (L) 11.0 (L) 11.3 (L) Hematocrit 36.0 - 46.0 % 32.7 (L) 34.0 (L) 34.7 (L) MCV 80.0 - 100.0 fL 102.8 (H) 103.0 (H) 104.2 (H) MCH 26.0 - 34.0 pG 33.0 33.3 33.9 MCHC 30.5 - 36.0 g/dL 32.1 32.4 32.6 RDW-CV 11.5 - 15.0 % 24.2 (H) 24.3 (H) 23.9 (H) Platelet Count 150 - 400 k/uL 39 (L) 45 (L) 45 (L) MPV 9.0 - 12.7 fL <<DO NOT REPORT>> <<DO NOT REPORT>> <<DO NOT REPORT>> Absolute nRBC <0.01 k/uL <0.01 0.02 (H) <0.01 Impression/Recommendations 27 y/o female?with PMHx of 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 Recent admission 10/13/17-10/23/17 for hemoptysis and SOB, requiring intubation, was in MICU for management of DAH. readmitted to MICU again for ?extensive left retroperitoneal hemorrhage?s/p IR guided intervention (initially on 10/23 at [facility] and 10/26 here at [facility]. ? # Antiphospholipid antibody syndrome -recent?home therapy : Prednisone 60 mg ( home dose 5 mg), Cytoxan 75 mg ( home dose 150 mg), pheresis QOW ?-Please taper prednisone dose to 40 mg ?-Cytoxan stopped on 11/09 given persistent thrombocytopenia as this might he causing myelosuppression -Next PLEX due 11/27 ?-given N plate 2mcg/kg sq x1 on 11/09 , 3 mcg/kg on 11/13, and 4 mcg/kg on 11/17 ?-AC has been on hold due to recent bleeding and persistent thrombocytopenia, vascular medicine would prefer platelet to be >50 prior resuming AC? ? ?#Extensive left retroperitoneal hemorrhage -likely secondary to anticoagulant. Its an unfortunate case, she needs an anticoagulation for APS but bleeding episodes prohibits -sp IR intevention on 10/23 and 10/26? -Hemoglobin has been stable, would decrease transfusion threshold for platelet?if PLT count <20 K ? #Abnormal hemolysis labs - with elevated LD, elevated retic, and an undetectable hapto. Hemoglobin has been stable. - ?Direct [place] is negative -ADAMTS 13 activity resulted at 56 % speaking against TTP -Abnormal hemolysis labs likely?related to resolving hematoma. ? Discussed with SIGNATURE: Justina Pollard PA-C PATIENT NAME: Paloma Cannon DATE: November 20, 2017 TIME: 10:05 AM PAGER: [phone] THERAPY NT Observed: 11/20/2017 Status: COMPLETED Source: [place] 9:51 AM [facility] REPOSITORY O ID: [id number] Author: Indra Woods (Rn Interventional) Service: Physical Therapy Author Type: Ancillary Specialist Type: Therapy (PT/OT/Speech/Resp) Filed: 11/20/2017 9:53 AM Note Text: Attestation signed by Brenda Meraz (Pt) at 11/20/2017 10:49 AM I reviewed and agree with the assessment as documented above. SIGNATURE: Brenda Meraz PT DATE: November 20, 2017 TIME: 10:48 AM PHYSICAL THERAPY MISSED VISIT SERVICE DATE: 11/20/2017 SERVICE TIME: 0950 to 0950 ROOM: [place] [address] Attempted Treatment. Patient not seen due to declined (Pt declined due to having a lot of back pain, Pt just received pain meds. Will attempt in pm as able). SIGNATURE: Indra Woods PTA PATIENT NAME: Paloma Cannon DATE: November 20, 2017 TIME: 9:51 AM PAGER/CONTACT #: [phone] CBC Collected: 11/20/2017 Status: F Source: [place] 4:00 [facility] REPOSITORY TYPE CODE TESTS RESULT OUT OF REFERENCE UNITS RANGE LAB WBC 3.70-11.00 k/uL WBC 4.54 LAB RBC 3.90-5.20 m/uL Low RBC 3.33 LAB HGB 11.5-15.5 g/dL Low Hemoglobin 11.3 LAB HCT 36.0-46.0 % Low Hematocrit 34.7 LAB MCV 80.0-100.0 fL MCV High 104.2 LAB MCH 26.0-34.0 pG MCH 33.9 LAB MCHC 30.5-36.0 g/dL MCHC 32.6 LAB RDWCV 11.5-15.0 % RDW-CV High 23.9 LAB PLTCT 150-400 k/uL Low Platelet Count 45 Result Comment: Result checked and verified No clot detected. LAB MPV 9.0-12.7 fL MPV <<DO NOT REPORT>> LAB ABSNUC <0.01 k/uL <0.01 Absolute nRBC Performed By: #### CBC, BMP #### [facility] [address] [place] [address] BASIC METABOLIC PANL Collected: 11/20/2017 Status: F Source: [place] 4:00 [facility] REPOSITORY TYPE CODE TESTS RESULT OUT OF REFERENCE UNITS RANGE LAB GLU 74-99 mg/dL Glucose 78 Result Comment: The [place] [employer] (ADA) provides guidance for cutoff values for fasting glucose and random glucose. The ADA defines fasting as no caloric intake for at least 8 hours. Fas ting plasma glucose results between 100 to 125 mg/dL indicate increased risk for diabetes (prediabetes). Fasting plasma glucose results greater than or equal to 126 mg/dL meet the criteria for diagnosis of diabetes. In the absence of unequivocal hyperglycemia, results should be confirmed by repeat testing. In a patient with classic symptoms of hyperglycemia or hyperglycemic crisis, random plasma glucose results greater than or equal to 200 mg/dL meet the criteria for diagnosis of diabetes. Reference: Standards of Medical Care in Diabetes 2016, [place] [employer]. Diabetes Care. 2016.39(Suppl 1). LAB BUN 7-21 mg/dL BUN High 43 LAB CRET 0.58-0.96 mg/dL Creatinine High 1.25 LAB NA 136-144 mmol/L Sodium 144 LAB K 3.7-5.1 mmol/L Potassium 4.1 LAB CL 97-105 mmol/L Chloride 101 LAB CO2 22-30 mmol/L CO2 26 LAB AGAP 9-18 mmol/L Anion Gap 17 LAB CA 8.5-10.2 mg/dL Calcium, Total 8.9 LAB GFRAA eGFR- Amer. >60 LAB GFRNAA . eGFR-All Other Races 51 Result Comment: eGFR (Estimated GFR) Units of measure: mL/min/1.73 meters squared eGFR is derived from the reexpressed MDRD Study equation using the following parameters: serum creatinine, age, gender and race. The creatinine assay has been calibrated to be traceable to IDMS. An eGFR <60 mL/min/1.73m2 for >3 months is consistent with chronic kidney disease. Refer to KDOQI guidelines for clinical interpretation. In patients with unstable renal function, e.g. those with acute kidney injury, the eGFR may not accurately reflect actual GFR. Performed By: #### CBC, BMP #### [facility] [address] [place], [place] [address] TYPE AND SCREEN Collected: 11/20/2017 Status: F Source: [place] 4:00 AM [facility] REPOSITORY TYPE CODE TESTS RESULT OUT OF REFERENCE UNITS RANGE LAB %ABR B ABO/RH(D) POSITIVE LAB % Antibody POS Screen Performed By: #### TSCR #### [facility] [address] [place], [place] [address] XR CHEST 1V FRONTAL Observed: 11/19/2017 Status: F Source: [facility] 11:07 PM [facility] REPOSITORY * * *Final Report* * * DATE OF EXAM: Nov 19 2017 11:07PM HAL[facility] [id number] - XR CHEST 1V FRONTAL PORT / PROCEDURE REASON: SOB (shortness of breath) * * * * Physician Interpretation * * * * EXAMINATION: CHEST RADIOGRAPH (PORTABLE SINGLE VIEW AP) Exam Date/Time: 11/19/2017 11:07 PM Indication: SOB (shortness of breath) MQ: [id number] Comparison: 11/10/2017 RESULT: See impression. IMPRESSION: Lines, tubes, and devices: 2 left-sided central venous catheters with tips overlying the lower SVC, unchanged. Lungs and pleura: Lung volumes are low secondary to hypoinflation. Patchy opacities in mid to lower lungs may be related to venous congestion. No consolidation is noted. No substantial pleural effusions or pneumothorax are noted. Cardiomediastinal silhouette: Cardiomediastinal silhouette is mildly enlarged. Other: No bony abnormalities. Practice Support Specialist: MURTAZA Transcribe Date/Time: Nov 20 2017 6:25A Dictated by : MERCY PETERS MD This examination was interpreted and the report reviewed and electronically signed by: MAHOGANY ECHAVARRIA MD on Nov 20 2017 7:30AM EST [id number] NURSING PROG Observed: 11/19/2017 Status: COMPLETED Source: [place] 11:04 PM [facility] REPOSITORY HNO ID: [id number] Author: Lisa Bourgeois (Rn), RN Service: Nursing Author Type: Registered Nurse Type: Nursing Progress Note Filed: 11/19/2017 11:08 PM Note Text: Nursing Progress Note Patient Name: Paloma Cannon Patient Location: H080 015/H080-16 Daily Note: Pt off floor in wheelchair when this RN came in at shift change. This RN checked on pt who was visiting a friend on another unit and told her she needs to return to room for VS, medications and assessment. Pt assisted back into bed with X2 assist. On assessment, pt noted to be desatting in the mid 80's on 3 L NC. Pt encouraged to deep breath through her nose and rest, pt satting 87%-93%- on 5 L NC. Pt denies feeling SOB, difficulty breathing, or any other s/s. Lungs sound clear. Pradeep pride, Resident Nelly Dee ordered STAT CXR and RT tx one time, also came to bedside to assess pt. Will attempt to wean pt once stable and continue to monitor respiratory status. Placed on continuous pulse on for further monitoring. This note was completed by: Lisa Bourgeois, RN NURSING PROG Observed: 11/19/2017 Status: COMPLETED Source: [place] 4:01 PM [facility] REPOSITORY HNO ID: [id number] Author: Grace Deal (Rn), RN Service: Nursing Author Type: Registered Nurse Type: Nursing Progress Note Filed: 11/19/2017 4:12 PM Note Text: Nursing Progress Note Patient Name: Paloma Cannon Patient Location: H080 015/H080-16 Daily Note:This nurse moisturized BLE with sween cream, applied stocking to BLE and then applied BLE heather wraps. Medicated with prn pain medications x3, temporarily effective until next dose available. Patient educated numerous times to turn while in bed. Patient is capable of rolling to her side and operating the controls on the bed to do so. Encouraged to turn every two hours. Patient laid on right side x 1 this shift. This nurse noted bruising and reddness to coccyx and bilateral ischiums, area is blanchable. Barrier ointment applied to coccyx and bilateral ischium. Potassium IV replaced x3 for low potassium level. Dr. Wayne removed drainage bag From left side of groin, there hasn't been any output in over 48 hours. Guaze and tape placed to site. This note was completed by: Grace Deal RN PROGRESS Observed: 11/19/2017 Status: COMPLETED Source: [place] 3:18 PM [facility] REPOSITORY HNO ID: [id number] Author: Ros Wayne Service: General Internal Medicine Author Type: Physician Type: Progress Notes Filed: 11/19/2017 9:08 PM Note Text: RAF Terry PROGRESS NOTE For questions regarding this patient today please page [phone] After 5 pm on weekdays and 3pm on weekends and holidays please page documentation clerk pager [phone] SERVICE DATE: 11/19/2017 SERVICE TIME: 3:18 PM INTERVAL HISTORY: - patient fatigued with exertion - slight increase in oxygen requirement overnight - Slightly hypertensive despite nifedipine ER increase to 90mg qday - Uoutput and sCr stable with current diuretic regimen - Added tizanidine 4mg TID for back muscle spasm possibly related to hematoma resorption. Changed dilaudid Q6H PRN, does not need to be with physical therapy. Labs: Hgb: 9.3-->9.5-->9.7-->9.0-->10.1-->9.8-->9.5-->9.6-->10-->10.1-->10.6-->10.5--> 10.7--10.5-->1 Creatinine: 1.10-->1.40-->1.19-->1.29-->0.96-->1.1-->0.96-->0.88-->1.06-->1.08-->1.22-- >1.15-->1.26-->1.23 Plt: 40-->34-->28-->36-->29-->25-1u plt->34-->28-1u plt->34-->40-->26-1uplat->37-->43-->46-->42-->39-->45 PLAN FOR TODAY - c/w torsemide 20 mg qday - continue to hold bivalirudin while platelets are <50 - contact IR re: sutures preventing biopatch from proper placement - extra dose nifedipine of 30mg. Will consider switch to 60mg BID tomorrow MEDICATIONS: Current hospital medications: NIFEdipine ER 90 mg tab(s) (PROCARDIA XL) 90 mg ORAL DAILY tiZANidine 4 mg tab(s) (ZANAFLEX) 4 mg ORAL TID HYDROmorphone 0.3 mg in NaCl 0.9% (DILAUDID) 0.3 mg INTRAVENOUS q 6 H PRN gabapentin 400 mg cap(s) (NEURONTIN) 400 mg ORAL BID 9a/5p gabapentin 300 mg tab(s) (NEURONTIN) 300 mg ORAL AT BEDTIME acetaminophen 1,000 mg tab(s) (TYLENOL) 1,000 mg ORAL TID torsemide 20 mg tab(s) (DEMADEX) 20 mg ORAL DAILY 0.9% NaCl 10 mL 10 mL INTRAVENOUS q 12 H 0.9% NaCl 20 mL 20 mL INTRAVENOUS PRN sodium citrate 4% 3-6 mL catheter lock 3-6 mL INTRALUMINAL APHERESIS PRN albuterol 2.5 mg /3 mL (0.083 %) 2.5 mg (PROVENTIL) 2.5 mg INHALATION q 4 WEEKS pentamidine 300 mg nebulizer solution (NEBUPENT) 300 mg INHALATION q 4 WEEKS carvedilol 25 mg tab(s) (COREG) 25 mg ORAL/FEEDING TUBE BID w MEALS oxyCODONE IR 5-10 mg tab(s) (ROXICODONE) 5-10 mg ORAL/FEEDING TUBE q 4 H PRN predniSONE (DELTASONE) tab(s) 60 mg 60 mg ORAL/FEEDING TUBE DAILY lidocaine 5 % 1 Patch (LIDODERM) 1 Patch TRANSDERMAL DAILY lidocaine patch - REMOVE OTHER AT BEDTIME lidocaine - VERIFY PATCH OTHER q 8 H polyethylene glycol 3350 17 g packet (MIRALAX, GLYCOLAX) 17 g ORAL/FEEDING TUBE DAILY docusate sodium 100 mg cap(s) (COLACE) 100 mg ORAL BID senna 8.6 mg tab(s) (SENOKOT) 8.6 mg ORAL/FEEDING TUBE BID pantoprazole DR 40 mg tab(s) (PROTONIX) 40 mg ORAL DAILY (6 AM) ondansetron 8 mg tab(s) (ZOFRAN) 8 mg ORAL q 8 H PRN diphenhydrAMINE 50 mg (BENADRYL) 50 mg ORAL/FEEDING TUBE q 6 H PRN hydrocortisone sodium succinate (PF) 100 mg injection (Solu- CORTEF) 100 mg INTRAVENOUS q 4 H PRN diphenhydrAMINE 50 mg injection (BENADRYL) 50 mg INTRAVENOUS q 4 H PRN prochlorperazine 5 mg injection (COMPAZINE) 5 mg INTRAVENOUS q 6 H PRN dextrose 50% in water 25-50 mL syringe 12.5-25 g INTRAVENOUS PRN dextrose 40 % 15 g 15 g ORAL PRN glucagon 1 mg injection (GLUCAGEN) 1 mg SUBCUTANEOUS PRN HOME MEDICATIONS: cyclophosphamide (CYTOXAN) 50 mg capsule Take 150 mg by mouth once daily. diphenhydrAMINE (BENADRYL) 50 mg capsule Take 1 capsule by mouth every 6 hours as needed for Itching/Rash. gabapentin (NEURONTIN) 100 mg capsule Take 1 capsule by mouth three times daily for 7 days. ondansetron (ZOFRAN, HYDROCHLORIDE,) 8 mg tablet Take 8 mg by mouth every 8 hours as needed for Nausea/Vomiting. pantoprazole DR (PROTONIX) 40 mg tablet Take 40 mg by mouth daily at bedtime. sulfamethoxazole-trimethoprim (BACTRIM DS) 800-160 mg per tablet Take 1 tablet by mouth every Monday,Monday,Monday. fluticasone (FLONASE) 50 mcg/actuation nasal spray Use 1-2 Sprays in each nostril once daily as needed for Cold/Allergy Symptoms (starting in allergy season). senna 8.6 mg tab Take 1 tablet by mouth twice daily as needed. PHYSICAL EXAM: VITAL SIGNS Patient Vitals for the past 24 hrs: BP Temp Temp src Pulse Resp SpO2 Weight 11/19/17 1440 147/69 37.2 ?C (98.9 ?F) Oral 88 19 95 % - 11/19/17 1055 133/61 - - 69 - - - 11/19/17 0936 - 36.7 ?C (98.1 ?F) Oral - 19 91 % - 11/19/17 0912 - - - 85 - - - 11/19/17 0910 177/87 - - - - 96 % - 11/19/17 0600 151/81 36.3 ?C (97.3 ?F) Oral 84 18 92 % 100.6 kg (221 lb 12.5 oz) 11/19/17 0200 142/78 36.7 ?C (98.1 ?F) Oral 89 18 95 % - 11/18/17 2200 149/77 36.6 ?C (97.8 ?F) Oral 75 18 95 % - 11/18/17 1618 159/80 37.1 ?C (98.7 ?F) Oral 83 22 94 % - BP 147/69 Pulse 88 Temp 37.2 ?C (98.9 ?F) (Oral) Resp 19 Ht 160 cm (5' 3) Wt 100.6 kg (221 lb 12.5 oz) SpO2 95% BMI 39.29 kg/m? Temp (24hrs), Av.8 ?C (98.2 ?F), Min:36.3 ?C (97.3 ?F), Max:37.2 ?C (98.9 ?F) INTAKE/OUTPUT Intake/Output Summary (Last 24 hours) at 11/19/17 1518 Last data filed at 11/19/17 1400 Gross per 24 hour Intake 790.9 ml Output 886 ml Net -95.1 ml General: Alert, oriented, cooperative.?In no acute distress. 2L NC Skin:?Chronic skin changes on bilateral LE below the knee?due to lymphedema HEENT: EOM. Pupils equal, round and reactive Cardiovascular: RRR. No murmur Lungs: Minimal crepitations at the bases than prior Abdomen: Soft, non-tender, no masses or organomegaly Extremities: 2+ peripheral edema but improving,?+2 DP pulses bilaterally Neurological: Moving all extremities freely? LAB DATA: CBC, Coags, BMP, Mg, Phos Recent Labs 11/19/17 0423 11/18/17 0411 11/17/17 0407 WBC 3.54* 3.47* 3.18* HB 11.0* 10.5* 10.5* HCT 34.0* 32.7* 32.4* PLT 45* 39* 42* NA 142 142 142 K 3.3* 3.7 3.5* CHLOR 102 101 100 CO2 24 26 28 BUN 44* 46* 50* CREAT 1.23* 1.26* 1.15* GLUC 107* 101* 120* CA 8.6 8.8 8.5 MG -- -- 1.9 P -- -- 4.3 ASSESSMENT AND PLAN: Active Hospital Problems Diagnosis - Retroperitoneal hematoma Retroperitoneal bleed: s/p 7 units PRBCs s/p IR [facility] left L3 artery at [facility] on 10/23 IR embolization of left L2 and L3 arteries on 10/26 CT abd/pel 10/31: RP bleed stable when compared to previous imaging from 10/27 LDH 1730, haptoglobin <10, Tbili 1.3- concern for hemolysis as well. Per heme, thrombocytopenia and anemia likely related to cytoxan with stressed BM Cytoxan reduced to 75 mg daily Plan: Continue to monitor HANDH and transfuse PRBC if Hb<7 or symptomatic Continue to hold Anticoagulation until approved by Vascular medicine- initially recommended holding AC for at least 14 days since last bleeding. 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 Has received stenting of IVC and iliacs along with endograft of IVC. 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 C/B extensive RP bleed s/p L2, L3 embolization. N-plate 11/09, 11/13 Received Apheresis on 11/03, 11/13 (heme following); patient is on [id number] (Mondays) schedule outpatient Plan: Holding Cytoxan 75 mg in setting of worsening thrombocytopenia Continue prednisone 60 mg with bactrim ppx Appreciate hematology and VM recs Plan is to start bivalrudin trial once platelets stabilize and bridge to coumadin - CAPRICE (acute kidney injury) (HCC) CAPRICE on CKD III, 2/2 contrast, now requiring dialysis First HD at [facility] on 10/25 with tunneled dialysis catheter placement followed by [address] Abdomen/pelvis from 10/26 showed occlusion of B/L renal veins, outflow not appreciated- could be attributing to CAPRICE and CKD Bladder scan Plan: Nephrology following- appreciate recommendations Daily BMPs to watch K, Na and phosphorus levels Renal dosing of medication Avoid excess fluids and nephrotoxic drugs - HTN (hypertension) Mildly decreased systolic function, diastolic function indeterminate on 10/13/17 ECHO. 10/28: Run of SBP in 200s overnight (likely d/t pain), given hydralazine however still consistently in 170s-180s 10/29: Still hypertensive, required 4 doses of hydralazine overnight Switched Amlodipine 10 mg to nifedipine 30mg on 11/10, and increased Coreg from 6.25 to 25 mg BID Plan: Increase nifedipine to 90mg 11/16 and keeping Coreg at current dosing, can up titrate coreg if tolerating well (HR currently 80-100) Can consider adding PRN hydralazine for SBP>180 mm Hg, - Diffuse pulmonary alveolar hemorrhage Currently stable, no new episodes Has had 6 admissions recently for acute respiratory failure requiring mechanical ventilation Cytoxan was reduced from 150 to 75 mg due to concern for BM toxicity; renally dosed Plan: Continue to monitor respiratory status Continue oxygen therapy at 2L NC Holding Cytoxan in setting of worsening thrombocytopenia Continue Prednisone 60 mg daily Switched bactrim to pentamidine for ppx on 11/12 Will reach out to outpatient provider regarding switch to pentamidine from bactrim, per heme recs - Moraxella catarrhalis pneumonia (HCC) Had respiratory cultures growing Moraxella catarrhalis Received ceftriaxone 10/27-11/03- 7 days therapy WBC trended down from 21 K to 12K. Currently at baseline O2 requirement but still slightly tachypneic Completed course of ceftriaxone. Plan: Continue to monitor respiratory status closely BPH per RT Incentive spirometry - Peripheral neuropathy - History of heparin-induced thrombocytopenia Avoid all heparin products. - Weakness of left leg 11/02 Left leg weakness/parasthesia Likely related to lumbar nerve compression from large retroperitoneal hematoma Neurology was following, recommended no further intervention On gabapentin renally dosed. - Right groin pain 10/27: C/o acute pain this morning, access site for embolization at [facility], no erythema or induration appreciated on exam, exquisitely TTP Groin study showed no signs of PSA, known AV fistula visualized with retrograde flow, vascular med aware- no further recs 10/28: pain less severe, no physical exam findings Repeat Leg DVT shows no pseudoaneurysm Likely due to nerve compression/RP hematoma causing compressive symtpoms S/p R groin drain placed at [facility] on 10/24 s/p L groin drain placed at [facility] during embolization on 10/26 Plan: - Pain management-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 [employer] as of transfer to [facility] - Will continue to wean dilaudid as pt tolerates, currently on Dilaudid 0.3 mg q4h PRN for pain, oxycodone PO PRN and gabapentin - IR consult for drain evaluation and removal on 11/05 MAINTENANCE: VTE PROPHYLAXIS:?will start bivalirudin most likely today NEED FOR ZUNIGA- Removed 11/14/17 LINES: Double lumen dialysis catheter 10/25/17 Dispo-?SNF v. Acute rehabilitation center This note is not final until staffed by the attending physician and authenticated by responsible provider. SIGNATURE: Olga Reyez MD PATIENT NAME: Paloma Cannon DATE: November 19, 2017 TIME: 3:18 PM PAGER: [phone] RAF Terry ATTENDING NOTE: Chart reviewed, patient seen and examined on 11/19 at 9am and fernandes elements of the history and physical were discussed in detail and confirmed with the resident team. I have reviewed the above note, examined the patient and agree with the documented findings and plan of care as listed in Dr Reyez's note. Any addendums above are in bold text. Assessment: s/p L severe RP bleed on 10/23/17?with embolization/coils to Left?L2 + L3 arteries, (10/23 + 10/26): ?s/p numerous RBC transfusions in early portion of hospitalization + now Hgb has stabilized Increased pain in L LS area appears to be muscular ? from resolving hematoma, sl better on Skelexin Persistent thrombocytopenia despite mult platelet tranfusions + ENDPLATE 11/09?+ 11/13 + DC?of Cytoxan (on 11/09) + Bactrim (on 11/12).. platelet count today is 45K, (last unit of platelets was 11/14) HTN control stable + Hx of Catastrophic APS as noted above, she remains off AC due to persistent thrombocytopenia: (+ also has Hx of HIT) Resolved?Moraxella catarrhalis HCAP (?Ceftriaxone 10/28 to 11/03) Remains fluid overloaded but less so, back on Demadex 20mg qAM since 11/13? CAPRICE on CKD on admission, renal function is holding stable Chronic LE edema due to chronic DVT, doing better with wraps ?? ? Plan: Same meds for now except: - increase Skelexin to 800mg TID - same opiate pain regimen Holding AC until platelet count > 50K Last PLEX was given on 11/13?and next due 11/27 Cont high dose prednisone + Addtl plans to follow ? Ros Wayne MD FACP Attending, pager [phone] NURSING PROG Observed: 11/19/2017 Status: COMPLETED Source: [place] 6:55 AM [facility] REPOSITORY HNO ID: [id number] Author: Lisa Bourgeois (Rn), RN Service: Nursing Author Type: Registered Nurse Type: Nursing Progress Note Filed: 11/19/2017 6:55 AM Note Text: Nursing Progress Note Patient Name: Paloma Cannon Patient Location: [place] [address] Daily Note: Raf pride paged regarding K of 3.3 on this AM labs. This note was completed by: Lisa Bourgeois RN CBC Collected: 11/19/2017 Status: F Source: [place] 4:23 AM [facility] REPOSITORY TYPE CODE TESTS RESULT OUT OF REFERENCE UNITS RANGE LAB WBC 3.70-11.00 k/uL Low WBC 3.54 LAB RBC 3.90-5.20 m/uL Low RBC 3.30 LAB HGB 11.5-15.5 g/dL Low Hemoglobin 11.0 LAB HCT 36.0-46.0 % Low Hematocrit 34.0 LAB MCV 80.0-100.0 fL MCV High 103.0 LAB MCH 26.0-34.0 pG MCH 33.3 LAB MCHC 30.5-36.0 g/dL MCHC 32.4 LAB RDWCV 11.5-15.0 % RDW-CV High 24.3 LAB PLTCT 150-400 k/uL Low Platelet Count 45 Result Comment: Result checked and verified No clot detected. LAB MPV 9.0-12.7 fL MPV <<DO NOT REPORT>> LAB ABSNUC <0.01 k/uL 0.02 High Absolute nRBC Performed By: #### CBC, BMP #### [facility] [address] [place], [place] [address] BASIC METABOLIC PANL Collected: 11/19/2017 Status: F Source: [place] 4:23 AM [facility] REPOSITORY TYPE CODE TESTS RESULT OUT OF REFERENCE UNITS RANGE LAB GLU 74-99 mg/dL High Glucose 107 Result Comment: The [place] [employer] (ADA) provides guidance for cutoff values for fasting glucose and random glucose. The ADA defines fasting as no caloric intake for at least 8 hours. Fas ting plasma glucose results between 100 to 125 mg/dL indicate increased risk for diabetes (prediabetes). Fasting plasma glucose results greater than or equal to 126 mg/dL meet the criteria for diagnosis of diabetes. In the absence of unequivocal hyperglycemia, results should be confirmed by repeat testing. In a patient with classic symptoms of hyperglycemia or hyperglycemic crisis, random plasma glucose results greater than or equal to 200 mg/dL meet the criteria for diagnosis of diabetes. Reference: Standards of Medical Care in Diabetes 2016, [place] [employer]. Diabetes Care. 2016.39(Suppl 1). LAB BUN 7-21 mg/dL BUN High 44 LAB CRET 0.58-0.96 mg/dL Creatinine High 1.23 LAB NA 136-144 mmol/L Sodium 142 LAB K 3.7-5.1 mmol/L Low Potassium 3.3 LAB CL 97-105 mmol/L Chloride 102 LAB CO2 22-30 mmol/L CO2 24 LAB AGAP 9-18 mmol/L Anion Gap 16 LAB CA 8.5-10.2 mg/dL Calcium, Total 8.6 LAB GFRAA eGFR- Amer. >60 LAB GFRNAA . eGFR-All Other Races 52 Result Comment: eGFR (Estimated GFR) Units of measure: mL/min/1.73 meters squared eGFR is derived from the reexpressed MDRD Study equation using the following parameters: serum creatinine, age, gender and race. The creatinine assay has been calibrated to be traceable to IDMS. An eGFR <60 mL/min/1.73m2 for >3 months is consistent with chronic kidney disease. Refer to KDOQI guidelines for clinical interpretation. In patients with unstable renal function, e.g. those with acute kidney injury, the eGFR may not accurately reflect actual GFR. Performed By: #### CBC, BMP #### [facility] [address] [place], [place] [address] NURSING PROG Observed: 11/18/2017 Status: COMPLETED Source: [place] 3:44 PM [facility] REPOSITORY HNO ID: [id number] Author: Grace Deal (Rn), RN Service: Nursing Author Type: Registered Nurse Type: Nursing Progress Note Filed: 11/18/2017 7:10 PM Note Text: Nursing Progress Note Patient Name: Paloma Cannon Patient Location: H080 [id number]/H080-16 Daily Note:Changed dressing to both left chest wall central lines. 1300 This nurse moisturized BLE with sween cream, applied stocking to BLE and then applied BLE heather wraps. Patient assisted into wheel chair with one assist (walker and gait belt) and patient is self propelling to visit another patient in the hospital. Medicated with prn pain medications x2, effective. Patient educated numerous times to turn while in bed. Encouraged to turn every two hours. Encouraged chair lifts while up in w/c but patient left off unit to visit another patient. This note was completed by: Grace Deal, JEFF PROGRESS Observed: 11/18/2017 Status: COMPLETED Source: [place] 2:33 PM [facility] REPOSITORY [facility] ID: [id number] Author: Ros Wayne Service: General Internal Medicine Author Type: Physician Type: Progress Notes Filed: 11/18/2017 9:53 PM Note Text: RAF Terry PROGRESS NOTE For questions regarding this patient today please page [phone] After 5 pm on weekdays and 3pm on weekends and holidays please page documentation clerk pager [phone] INTERVAL HISTORY: - Platelets downtrended today. 39. - Had pain o/n in her left back (site of hematoma). - Concerned about the status of anticoagulation. ? PLAN FOR TODAY - Hold off on bivalirudin today. - c/w torsemide 20 mg qday - Add tizanidine 4mg TID for back muscle spasm possibly related to hematoma resorption. - OK for dilaudid Q6H PRN, does not need to be with physical therapy. MEDICATIONS: Current hospital medications: tiZANidine 4 mg tab(s) (ZANAFLEX) 4 mg ORAL TID HYDROmorphone 0.3 mg in NaCl 0.9% (DILAUDID) 0.3 mg INTRAVENOUS q 6 H PRN gabapentin 400 mg cap(s) (NEURONTIN) 400 mg ORAL BID 9a/5p gabapentin 300 mg tab(s) (NEURONTIN) 300 mg ORAL AT BEDTIME acetaminophen 1,000 mg tab(s) (TYLENOL) 1,000 mg ORAL TID NIFEdipine ER (PROCARDIA XL) tab(s) 90 mg 90 mg ORAL DAILY torsemide 20 mg tab(s) (DEMADEX) 20 mg ORAL DAILY 0.9% NaCl 10 mL 10 mL INTRAVENOUS q 12 H 0.9% NaCl 20 mL 20 mL INTRAVENOUS PRN sodium citrate 4% 3-6 mL catheter lock 3-6 mL INTRALUMINAL APHERESIS PRN albuterol 2.5 mg /3 mL (0.083 %) 2.5 mg (PROVENTIL) 2.5 mg INHALATION q 4 WEEKS pentamidine 300 mg nebulizer solution (NEBUPENT) 300 mg INHALATION q 4 WEEKS carvedilol 25 mg tab(s) (COREG) 25 mg ORAL/FEEDING TUBE BID w MEALS oxyCODONE IR 5-10 mg tab(s) (ROXICODONE) 5-10 mg ORAL/FEEDING TUBE q 4 H PRN predniSONE (DELTASONE) tab(s) 60 mg 60 mg ORAL/FEEDING TUBE DAILY lidocaine 5 % 1 Patch (LIDODERM) 1 Patch TRANSDERMAL DAILY lidocaine patch - REMOVE OTHER AT BEDTIME lidocaine - VERIFY PATCH OTHER q 8 H polyethylene glycol 3350 17 g packet (MIRALAX, GLYCOLAX) 17 g ORAL/FEEDING TUBE DAILY docusate sodium 100 mg cap(s) (COLACE) 100 mg ORAL BID senna 8.6 mg tab(s) (SENOKOT) 8.6 mg ORAL/FEEDING TUBE BID pantoprazole DR 40 mg tab(s) (PROTONIX) 40 mg ORAL DAILY (6 AM) ondansetron 8 mg tab(s) (ZOFRAN) 8 mg ORAL q 8 H PRN diphenhydrAMINE 50 mg (BENADRYL) 50 mg ORAL/FEEDING TUBE q 6 H PRN hydrocortisone sodium succinate (PF) 100 mg injection (Solu- CORTEF) 100 mg INTRAVENOUS q 4 H PRN diphenhydrAMINE 50 mg injection (BENADRYL) 50 mg INTRAVENOUS q 4 H PRN prochlorperazine 5 mg injection (COMPAZINE) 5 mg INTRAVENOUS q 6 H PRN dextrose 50% in water 25-50 mL syringe 12.5-25 g INTRAVENOUS PRN dextrose 40 % 15 g 15 g ORAL PRN glucagon 1 mg injection (GLUCAGEN) 1 mg SUBCUTANEOUS PRN HOME MEDICATIONS: cyclophosphamide (CYTOXAN) 50 mg capsule Take 150 mg by mouth once daily. diphenhydrAMINE (BENADRYL) 50 mg capsule Take 1 capsule by mouth every 6 hours as needed for Itching/Rash. gabapentin (NEURONTIN) 100 mg capsule Take 1 capsule by mouth three times daily for 7 days. ondansetron (ZOFRAN, HYDROCHLORIDE,) 8 mg tablet Take 8 mg by mouth every 8 hours as needed for Nausea/Vomiting. pantoprazole DR (PROTONIX) 40 mg tablet Take 40 mg by mouth daily at bedtime. sulfamethoxazole-trimethoprim (BACTRIM DS) 800-160 mg per tablet Take 1 tablet by mouth every Monday,Monday,Monday. fluticasone (FLONASE) 50 mcg/actuation nasal spray Use 1-2 Sprays in each nostril once daily as needed for Cold/Allergy Symptoms (starting in allergy season). senna 8.6 mg tab Take 1 tablet by mouth twice daily as needed. PHYSICAL EXAM: BP 144/58 Pulse 80 Temp 36.6 ?C (97.9 ?F) (Oral) Resp 18 Ht 160 cm (5' 3) Wt 99 kg (218 lb 4.1 oz) SpO2 94% BMI 38.66 kg/m? INTAKE/OUTPUT Intake/Output Summary (Last 24 hours) at 11/18/17 1434 Last data filed at 11/18/17 1200 Gross per 24 hour Intake 30.3 ml Output 1270 ml Net -1239.7 ml General: Alert, oriented, cooperative.?In no acute distress. 2L NC Skin:?Chronic skin changes on bilateral LE below the knee?due to lymphedema HEENT: EOM. Pupils equal, round and reactive Cardiovascular: RRR. No murmur Lungs: Minimal crepitations at the bases than prior Abdomen: Soft, no masses or organomegaly, ecchymoses on the left lumbar region (tender). Extremities: 2+ peripheral edema but improving,?+2 DP pulses bilaterally Neurological: Moving all extremities freely? ASSESSMENT AND PLAN: Active Hospital Problems Diagnosis - Retroperitoneal hematoma Retroperitoneal bleed: s/p 7 units PRBCs s/p IR emobolization of left L3 artery at [facility] on 10/23 IR embolization of left L2 and L3 arteries on 10/26 CT abd/pel 10/31: RP bleed stable when compared to previous imaging from 10/27 LDH 1730, haptoglobin <10, Tbili 1.3- concern for hemolysis as well. Per heme, thrombocytopenia and anemia likely related to cytoxan with stressed BM Cytoxan reduced to 75 mg daily Plan: Continue to monitor HANDH and transfuse PRBC if Hb<7 or symptomatic Continue to hold Anticoagulation until approved by Vascular medicine- initially recommended holding AC for at least 14 days since last bleeding. 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 Has received stenting of IVC and iliacs along with endograft of IVC. 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 C/B extensive RP bleed s/p L2, L3 embolization. N-plate 11/09, 11/13 Received Apheresis on 11/03, 11/13 (heme following); patient is on [id number] (Mondays) schedule outpatient Plan: Holding Cytoxan 75 mg in setting of worsening thrombocytopenia Continue prednisone 60 mg with bactrim ppx Appreciate hematology and VM recs Plan is to start bivalrudin trial once platelets stabilize and bridge to coumadin - CAPRICE (acute kidney injury) (HCC) CAPRICE on CKD III, 2/2 contrast, now requiring dialysis First HD at [facility] on 10/25 with tunneled dialysis catheter placement followed by [address] Abdomen/pelvis from 10/26 showed occlusion of B/L renal veins, outflow not appreciated- could be attributing to CAPRICE and CKD Bladder scan Plan: Nephrology following- appreciate recommendations Daily BMPs to watch K, Na and phosphorus levels Renal dosing of medication Avoid excess fluids and nephrotoxic drugs - HTN (hypertension) Mildly decreased systolic function, diastolic function indeterminate on 10/13/17 ECHO. 10/28: Run of SBP in 200s overnight (likely d/t pain), given hydralazine however still consistently in 170s-180s 10/29: Still hypertensive, required 4 doses of hydralazine overnight Switched Amlodipine 10 mg to nifedipine 30mg on 11/10, and increased Coreg from 6.25 to 25 mg BID Plan: Increase nifedipine to 90mg 11/16 and keeping Coreg at current dosing, can up titrate coreg if tolerating well (HR currently 80-100) Can consider adding PRN hydralazine for SBP>180 mm Hg, - Diffuse pulmonary alveolar hemorrhage Currently stable, no new episodes Has had 6 admissions recently for acute respiratory failure requiring mechanical ventilation Cytoxan was reduced from 150 to 75 mg due to concern for BM toxicity; renally dosed Plan: Continue to monitor respiratory status Continue oxygen therapy at 2L NC Holding Cytoxan in setting of worsening thrombocytopenia Continue Prednisone 60 mg daily Switched bactrim to pentamidine for ppx on 11/12 Will reach out to outpatient provider regarding switch to pentamidine from bactrim, per heme recs - Moraxella catarrhalis pneumonia (HCC) Had respiratory cultures growing Moraxella catarrhalis Received ceftriaxone 10/27-11/03- 7 days therapy WBC trended down from 21 K to 12K. Currently at baseline O2 requirement but still slightly tachypneic Completed course of ceftriaxone. Plan: Continue to monitor respiratory status closely BPH per RT Incentive spirometry - Peripheral neuropathy - History of heparin-induced thrombocytopenia Avoid all heparin products. - Weakness of left leg 11/02 Left leg weakness/parasthesia Likely related to lumbar nerve compression from large retroperitoneal hematoma Neurology was following, recommended no further intervention On gabapentin renally dosed. - Right groin pain 10/27: C/o acute pain this morning, access site for embolization at [facility], no erythema or induration appreciated on exam, exquisitely TTP Groin study showed no signs of PSA, known AV fistula visualized with retrograde flow, vascular med aware- no further recs 10/28: pain less severe, no physical exam findings Repeat Leg DVT shows no pseudoaneurysm Likely due to nerve compression/RP hematoma causing compressive symtpoms S/p R groin drain placed at [facility] on 10/24 s/p L groin drain placed at [facility] during embolization on 10/26 Plan: - Pain management-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 WA[employer] as of transfer to [facility] - Will continue to wean dilaudid as pt tolerates, currently on Dilaudid 0.3 mg q4h PRN for pain, oxycodone PO PRN and gabapentin - IR consult for drain evaluation and removal on 11/05 MAINTENANCE: VTE PROPHYLAXIS:?will start bivalirudin once platelet count improves to 50. NEED FOR ZUNIGA- Removed 11/14/17 LINES: Double lumen dialysis catheter 10/25/17 Dispo-?SNF v. Acute rehabilitation center This note is not final until staffed by the attending physician and authenticated by responsible provider. Gustavo Vidal MD IM PGY-3, [id number] 11/18/2017 2:34 PM RAF Terry ATTENDING NOTE: Chart reviewed, patient seen and examined on 11/18 at 11am and fernandes elements of the history and physical were discussed in detail and confirmed with the resident team. I have reviewed the above note, examined the patient and agree with the documented findings and plan of care as listed in Dr Vidal's note. Any addendums above are in bold text. Assessment: s/p L RP bleed on 10/23/17?with embolization and coils to Left?L2 + L3 arteries, (10/23 + 10/26): ?s/p numerous RBC transfusions in early portion of hospitalization + Hgb has stabilized Increased pain in L LS area appears to be muscular ? from resolving hematoma Persistent thrombocytopenia despite mult platelet tranfusions (ENDPLATE 11/09?+ 11/13)+ DC?of Cytoxan (11/09) + Bactrim (11/12).. platelet count today is 39K, (s/p 1 unit of platelets on 11/14) HTN control stable + Hx of Catastrophic APS as noted above, she remains off AC due to persistent thrombocytopenia: (+ has Hx of HIT) Resolved?Moraxella catarrhalis HCAP (?Ceftriaxone 10/28 to 11/03) Remains fluid overloaded, improving slowly?w/ resumption of Demadex 20mg qAM on 11/13? CAPRICE on CKD on admission, renal function is holding stable Chronic LE edema due to chronic DVT?? ? Plan: Same meds for now except: - add Skelexin 400mg TID scheduled - same opiate pain regimen Holding AC until platelet count > 50K Last PLEX was given on 11/13?and then due 11/27 + Encourage activity + time up in chair Ros Wayne MD FACP Attending, pager [phone] METHYLMALONIC ACID Collected: 11/18/2017 Status: F Source: [place] 8:59 AM [facility] REPOSITORY TYPE CODE TESTS RESULT OUT OF REFERENCE UNITS RANGE LAB MMA 79-376 nmol/L Methylmalonic Acid 336 Result Comment: This test was developed and its performance characteristics determined by [facility] [place] ([facility]). It has not been cleared or approved by the FDA. [facility] is regulated under CLIA as qualified to perform high-complexity testing. This test is used for clinical purposes. It should not be regarded as investigational or for research. Performed By: #### MMA #### [facility] [address], [place] [address] CBC Collected: 11/18/2017 Status: F Source: [place] 4:11 AM [facility] REPOSITORY TYPE CODE TESTS RESULT OUT OF REFERENCE UNITS RANGE LAB WBC 3.70-11.00 k/uL Low WBC 3.47 LAB RBC 3.90-5.20 m/uL Low RBC 3.18 LAB HGB 11.5-15.5 g/dL Low Hemoglobin 10.5 LAB HCT 36.0-46.0 % Low Hematocrit 32.7 LAB MCV 80.0-100.0 fL MCV High 102.8 LAB MCH 26.0-34.0 pG MCH 33.0 LAB MCHC 30.5-36.0 g/dL MCHC 32.1 LAB RDWCV 11.5-15.0 % RDW-CV High 24.2 LAB PLTCT 150-400 k/uL Low Platelet Count 39 Result Comment: Result checked and verified No clot detected. LAB MPV 9.0-12.7 fL MPV <<DO NOT REPORT>> LAB ABSNUC <0.01 k/uL <0.01 Absolute nRBC Performed By: #### CBC, BMP #### [facility] [address], [place] [address] BASIC METABOLIC PANL Collected: 11/18/2017 Status: F Source: [place] 4:11 [facility] REPOSITORY TYPE CODE TESTS RESULT OUT OF REFERENCE UNITS RANGE LAB GLU 74-99 mg/dL High Glucose 101 Result Comment: The [place] [employer] (ADA) provides guidance for cutoff values for fasting glucose and random glucose. The ADA defines fasting as no caloric intake for at least 8 hours. Fas ting plasma glucose results between 100 to 125 mg/dL indicate increased risk for diabetes (prediabetes). Fasting plasma glucose results greater than or equal to 126 mg/dL meet the criteria for diagnosis of diabetes. In the absence of unequivocal hyperglycemia, results should be confirmed by repeat testing. In a patient with classic symptoms of hyperglycemia or hyperglycemic crisis, random plasma glucose results greater than or equal to 200 mg/dL meet the criteria for diagnosis of diabetes. Reference: Standards of Medical Care in Diabetes 2016, [place] [employer]. Diabetes Care. 2016.39(Suppl 1). LAB BUN 7-21 mg/dL BUN High 46 LAB CRET 0.58-0.96 mg/dL Creatinine High 1.26 LAB NA 136-144 mmol/L Sodium 142 LAB K 3.7-5.1 mmol/L Potassium 3.7 LAB CL 97-105 mmol/L Chloride 101 LAB CO2 22-30 mmol/L CO2 26 LAB AGAP 9-18 mmol/L Anion Gap 15 LAB CA 8.5-10.2 mg/dL Calcium, Total 8.8 LAB GFRAA eGFR- Amer. >60 LAB GFRNAA . eGFR-All Other Races 51 Result Comment: eGFR (Estimated GFR) Units of measure: mL/min/1.73 meters squared eGFR is derived from the reexpressed MDRD Study equation using the following parameters: serum creatinine, age, gender and race. The creatinine assay has been calibrated to be traceable to IDMS. An eGFR <60 mL/min/1.73m2 for >3 months is consistent with chronic kidney disease. Refer to KDOQI guidelines for clinical interpretation. In patients with unstable renal function, e.g. those with acute kidney injury, the eGFR may not accurately reflect actual GFR. Performed By: #### CBC, BMP #### [facility] [address] [id number] THERAPY NT Observed: 11/17/2017 Status: COMPLETED Source: [place] 11:29 AM [facility] REPOSITORY HNO ID: [id number] Author: Tamiko Son (Pt) Service: Physical Therapy Author Type: Physical Therapist Type: Therapy (PT/OT/Speech/Resp) Filed: 11/17/2017 11:36 AM Note Text: Physical Therapy Wound/Lymph Treatment SERVICE DATE: 11/17/2017 SERVICE TIME: 1038 to 1110 ROOM: [place] [address] Recommended Discharge Disposition Comments: will require further assessment Anticipated Discharge Needs: Undetermined PT Recommendations to Nursing: With assist of 1 person;Transfer to/from chair;OOB for Meals 6 Clicks Score: 14 Skin Condition: BLE lymphedema Frequency of Dressing Change:Daily?- compression wraps to be worn during the day hours ?Physical Therapy to Perform Dressing Change: 4x/week to be coordinated with nursing ?Nursing to Perform Dressing Change:1x/day Monday and Monday Dressing/Treatment Type: See Clinical Documentation report for specific dressing information. ASSESSMENT : Patient with some decreased edema noted today as evidenced by decreased circumferential measurements. Pt responded well to instructions for compression over the weekend and encouragement to wear the surgigrip stocking all day. Pt is physically unable to perform compression wrapping therefore will need to perform training with a family member. ?Plan to continue with current POC at this time. Patient Disposition at Start of Session: Supine in Bed Patient Disposition at End of Session: Supine in Bed;Call Wagoner in Reach Tolerated Full Session Fatigue Physical Therapy Problem List: Cognitive Deficit;Education Deficit;Decreased Activity Tolerance;Decreased Strength;Functional Mobility Impairment Patient /Caregiver Goals: Unique to general PT Goals for Plan of Care: 1. ?Decongestion of BLE?with girth measurements decreased by 2-4?cm per segment to increase level of independence with functional mobility and ADL's, decrease pain, decrease recurrence of infection, improved range of motion and allow appropriate fit in compressive garment. ?? 2. ??Pt and/or caregiver will demonstrate compliance in knowledge of lymphedema precautions including meticulous skin and nail care to reduce risk of infection and further exacerbation. 3. ??Pt and/or caregiver will demonstrate the correct method of Lymphatic Bandaging/compression technique and independent understanding of the principles and theory of compression 4. ??Pt and/or caregiver will be independent in their exercise program to enchance Lymphatic flow and decongestion of the affected body parts 5. Patient/ Caregiver will be able to demonstrate competence with offloading recommendations and pressure relieving strategies 6. Patient/ Caregiver will be able to state the signs and symptoms of infection Progress Toward Goals: Progressing as expected Due To: medical status Rehab Potential: Fair PLAN: Treatment Frequency (times per week): 4 Current admission Treatment Interventions: Education;Self Care / Home Management;Joint Mobility;Strengthening;Functional Mobility Training;Balance Training;Edema Management;Pain Management Plan of Care developed with: Patient TREATMENT INTERVENTIONS: Interventions Provided: Manual Therapy (45847) Manual Therapy (14467) Treatment Minutes: 32 2 units Skilled Intervention: Manual skills to improve joint mobility, range of motion, and decrease pain. Educated patient on the following aspect of Complete Decongestive Therapy (CDT): 1.??Compressive Therapy: Discussed rationale for compression garment and bandaging Instructed in proper technique for compression wrapping Skilled interventions: - Increase lymaphtic fluid dynamics - Increase skin extensibility - Utilized anatomy knowledge of the therapist, and assessment of patient's response to intervention. ? Manual Compression performed: 1. ?Skin inspected and?cleansed thoroughly 2. ?Applied lotion?to BLE? 3. ?Applied 1 surgigrip?+ 1?surepress wraps applied at 50% tension?with a 50% overlap (deferred ankle padding today). ? Spoke at length with pt re: when to loosen or remove the bandages (i.e.: in the event that pain becomes a limiting factor or pt experienced new onset SOB or worsening of respiratory status). Pt verbalized understanding. ? Education: 1. ?Discussed with patient and nursing the risks and benefits of compression therapy and how compression is indicated in this case. 2. ?Educated patient/ caregiver?regarding rationale for compression wrapping. 3. ?Instructed in proper technique for compression wrapping.? Total Timed Code Treatment Minutes: 32 Total Treatment Time (minutes): 32 SUBJECTIVE: Current Hospital Course: Chart reviewed and no significant medical updates relevant to therapy were noted Patient Report: Pt pleasant and cooperative today. Pt stated that she tolerated the compression bandages until 9pm last evening. 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 Entry To Home: No Stairs Number Of Stairs To Bed/Bath: 0 Tub/Shower Type: walk in shower Equipment Owned: Commode-Raised;Grab Bars-Shower;Grab Bars-Toilet;Shower Chair;Home Oxygen Prior Functional Level: Required Assistance Assistance Required With: Cleaning;Laundry;Meals;Shopping;Transportation Prior Wound Care: Other: See Comment (unable to don compression stockings (I)) OBJECTIVE: Location Date: 11/17/17 Right Left Metatarsal Heads 25.5cm 24cm Ankle ([place]) 24.5cm 24.5cm 10cm above malleoli 28.5cm 28.25cm 20cm above malleoli 44cm 40.5cm 30cm above malleoli 49cm 44.5cm Location Evaluation Date: 08/01/17 Date: 11/03/17 Date: 11/16/17 Right Left Right Left Right Left Metatarsal Heads 24cm 22.5cm 24cm 24cm 24cm 24.5cm Ankle ([place]) 23.25cm 22.5cm 24cm 25cm 24.5cm 25cm 10cm above malleoli 28.5cm 28cm 30cm 27.5cm 31cm 29.5cm 20cm above malleoli 42cm 43.25cm 42cm 40cm 46cm 42cm 30cm above malleoli 45.5cm 41.5cm 46cm 47cm 46cm 44.5cm LLE Circumferential Measurements: Metatarsal Heads;Ankle;10 cm;20 cm;30 cm Left Metatarsal Heads: 24cm Left Ankle: 24.5cm Left Lower Extremity 10cm: 28.25cm Left Lower Extremity 20cm: 40.5cm Left Lower Extremity 30cm: 44.5cm RLE Circumferential Measurements: Metatarsal Heads;Ankle;10 cm;20 cm;30 cm Right Metatarsal Heads: 25.5cm Right Ankle: 24.5cm Right Lower Extremity 10cm: 28.5cm Right Lower Extremity 20cm: 44cm Right Lower Extremity 30cm: 49cm Sensation Sensation: Right Lower Extremity;Left Lower Extremity Right Lower Extremity Sensation: Light Touch RLE Light Touch: Intact Left Lower Extremity Sensation: Light Touch LLE Light Touch: Intact Circulation Pulses: Right Dorsalis Pedis;Left Dorsalis Pedis Right Dorsalis Pedis Pulse: (unable to palpate due to lymphedema; present via doppler) Left Dorsalis Pedis Pulse: (unable to palpate due to lymphedema; present via doppler) Capillary Refill: Right Lower Extremity;Left Lower Extremity Right Lower Extremity Capillary Refill: Intact Left Lower Extremity Capillary Refill: Intact See Clinical Documentation report for Skin Documentation. Current Functional Mobility Assist Level Additional Information Rolling Contact Guard Assistance Supine to Sit Contact Guard Assistance Sit to Supine Moderate Assistance Scooting Contact Guard Assistance Sit to Stand Moderate Assistance (to maximal assist of 1) Stand to Sit Moderate Assistance Bed to Chair Moderate Assistance Toilet/Commode Moderate Assistance Gait Moderate Assistance Gait Device: Wheeled Walker Gait Distance (feet): 3', 5', 15', 6' General Gait Deviations: Delmy decreased;Lateral sway increased;Step length decreased;Flexed trunk posture;Wide base of support Balance: Static Sitting;Dynamic Sitting;Static Standing;Dynamic Standing Static Sitting Balance: Stand By Assistance Dynamic Sitting Balance: Contact Guard Assistance Static Standing Balance: Minimal Assistance Dynamic Standing Balance: Moderate Assistance Please see discipline specific clinical documentation flowsheet for complete details for this therapy evaluation/treatment. SIGNATURE: Tamiko Son PT PATIENT NAME: Paloma Cannon DATE: November 17, 2017 TIME: 11:29 AM PAGER/CONTACT #: [phone] THERAPY NT Observed: 11/17/2017 Status: COMPLETED Source: [place] 10:45 AM [facility] REPOSITORY O ID: [id number] Author: Indra Woods (Rn Interventional) Service: Physical Therapy Author Type: Ancillary Specialist Type: Therapy (PT/OT/Speech/Resp) Filed: 11/17/2017 12:21 PM Note Text: Attestation signed by Jocelyn Coleman (Pt) at 11/17/2017 2:01 PM I reviewed and agree with the documentation corresponding to this therapy visit. SIGNATURE: Jocelyn Coleman PT DATE: November 17, 2017 TIME: 2:00 PM Physical Therapy Treatment SERVICE DATE: 11/17/2017 SERVICE TIME: 924 to 1034 ROOM: [place] [address] Recommended Discharge Disposition: Acute Rehab Justification For Post Acute Needs: Anticipate that patient will require daily (5x/wk) skilled therapy in a post-acute facility setting at the time of acute hospital discharge;Willing to participate;Motivated;Anticipate patient will tolerate 3 hours of daily therapy at the time of admission to post-acute setting;Good family support Anticipated Discharge Needs: Undetermined PT Recommendations to Nursing: With assist of 1 person;Transfer to/from chair;OOB for Meals PT 6 Clicks Score: 12 Precautions/Activity Restrictions: Fall Risk;Lines/Tubes/Drains ASSESSMENT : Patient able to progress with functional mobility as demonstrated by assist of 1 for sit to/from transfers and increased distance with ambulation. Patient required assist and cues for proper technique for gait training and transfer training. Patient would benefit from Acute Rehab to address current functional deficits Patient Disposition at Start of Session: Supine in Bed Patient Disposition at End of Session: Supine in Bed;Call Wagoner in [place] (Staff in room) Tolerated Full Session Fatigue Physical Therapy Problem List: Cognitive Deficit;Education Deficit;Decreased Activity Tolerance;Decreased Strength;Functional Mobility Impairment Patient /Caregiver Goals: Go Home Goals for Plan of Care: Rolling with: Independent Transfer supine to/from sit with: Independent Transfer sit to/from stand with: Contact Guard Assistance Ambulate with: Contact Guard Assistance Distance: 10 Device: Wheeled Walker Progress Toward Goals: Progressing as expected Due To: medical acuity varies level of assist needed Rehab Potential: Good PLAN: Treatment Frequency (times per week): 3 (1-2PRN) Treatment Duration (number): 2 Weeks Treatment Interventions: Education;Energy Conservation Training;Strengthening;Functional Mobility Training;Balance Training Plan of Care developed with: Patient TREATMENT INTERVENTIONS: Therapy Diagnosis: Reduced mobility-other Interventions Provided: Gait Training (28923);Therapeutic Activity (34475);Therapeutic Exercise (77888) Therapeutic Exercise (22350) Treatment Minutes: 15 1 unit Skilled Intervention(s): Patient instructed in and performed seated exercises: 20 reps: ankle pumps; 5 reps with 5 second hold- LAQ, marching with assist for minimal tactile and verbal cues. Discussed left ankle ROM to neutral and need to use sheet to assist with dorsiflexion however edema maybe limiting ROM. WC mobility (manual) for 40' with SBA with cues for proper technique cues for turning and brake management. Educated patient in reasoning for each exercise. Encourage patient to perform AP with sheet on left to increase dorsiflexion and sitting EOB with and perform marching and LAQ with 5 second hold. Therapeutic Activity (74208) Treatment Minutes: 30 2 units Skilled Intervention(s): Instructed patient in log roll technique- using bed rail Instructed and assisted patient in supine to sit pushing with upper extremities to sit up- with HOB raised Instructed and assisted patient in sit to supine using safe, effective technique- assist with BLE, patient able to move trunk using bed rail Scooting to HOB with using BUE to pull up in bed without assist, lateral scooting in bed to HOB with CGA, scooting to with EOB with CGA for safety Education with importance of OOB activities and pacing activity. Transfer training from bed to/from [facility] with walker with cues for walker management, balance, foot placement, trunk alignment and body positioning. Static standing for hygiene with CGA/ minimal assist with cues for knee extension, forward gaze, trunk alignment and balance. Patient required extra time for all activities due to fatigue and pain. Gait Training (43736) Treatment Minutes: 23 2 units Skilled Intervention(s): Instruction in sit to stand technique with proper hand placement and body positioning at edge of bed/chair with assist . ?Instruction in stand to sit technique with LE's touching chair/bed and reaching back for surface, Instruction in correction of gait deviations, Instruction in use of equipment, cues for sequence and pattern and walker management. Patient on 2 liters oxygen desat'd to 84% after 15' with ambulation increased to 3 liters recovered to 95%, return to 2 liters then 93% and cues for breathing technique. Nursing notfied. Patient required extra time for all activities due to fatigue and pain. ? Total Timed Code Treatment Minutes: 68 Total Treatment Time (minutes): 70 FUNCTIONAL G CODE: PT 6 Clicks Score: 12 (11/17/17 7856) Mobility: Walking and Moving Around Current Status (G8978): CL (11/02/17 1015) Mobility: Walking and Moving Around Goal Status (G8979): CK (11/02/17 1015) Based on clinical assessment and the score on the 6 Clicks Functional Assessment Tool, the G code and corresponding severity modifiers are documented above. SUBJECTIVE: Current Hospital Course: Chart reviewed and no significant medical updates relevant to therapy were noted Patient Report: Patient happy to walk in carr further than last PT visit. 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 Entry To Home: No Stairs Number Of Stairs To Bed/Bath: 0 Tub/Shower Type: walk in shower Equipment Owned: Commode-Raised;Grab Bars-Shower;Grab Bars-Toilet;Shower Chair;Home Oxygen Prior Functional Level: Required Assistance Assistance Required With: Cleaning;Laundry;Meals;Shopping;Transportation Prior Wound Care: Other: See Comment (unable to don compression stockings (I)) OBJECTIVE: CURRENT FUNCTIONAL STATUS: Current Functional Mobility Assist Level Additional Information Rolling Contact Guard Assistance Supine to Sit Contact Guard Assistance Sit to Supine Moderate Assistance Scooting Contact Guard Assistance Sit to Stand Moderate Assistance (to maximal assist of 1) Stand to Sit Moderate Assistance Bed to Chair Moderate Assistance Toilet/Commode Moderate Assistance Gait Moderate Assistance Gait Device: Wheeled Walker Gait Distance (feet): 3', 5', 15', 6' Stairs Curb Step Car Transfer General Gait Deviations: Delmy decreased;Lateral sway increased;Step length decreased;Flexed trunk posture;Wide base of support Balance: Static Sitting;Dynamic Sitting;Static Standing;Dynamic Standing Static Sitting Balance: Stand By Assistance Dynamic Sitting Balance: Contact Guard Assistance Static Standing Balance: Minimal Assistance Dynamic Standing Balance: Moderate Assistance Please see discipline specific clinical documentation flowsheet for complete details for this therapy evaluation/treatment. SIGNATURE: Indra Woods PTA PATIENT NAME: Paloma Cannon DATE: November 17, 2017 TIME: 10:45 AM PAGER/CONTACT #: [phone] CONSULT Observed: 11/17/2017 Status: COMPLETED Source: [place] 10:01 AM [facility] REPOSITORY HNO ID: [id number] Author: Lila Weldon Service: Vascular Medicine Author Type: Physician Type: Consults Filed: 11/17/2017 7:05 PM Note Text: VASCMED CONSULT PROGRESS NOTE SERVICE DATE: 11/17/2017 SERVICE TIME: 10:03 AM Subjective Follow Up Regarding: Anticoagulation management, history of APS/HIT INTERVAL HPI and PERTINENT ROS: Brief review of history: 27 year old female with 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 Readmitted 10/23 with hemorrhagic shock (Hgb 4.8, significant transfusion requirements), CAPRICE requiring IHD, and large left RP bleed s/p IR embolization of left L3 artery on 10/23 and embolization of left L2-L3 arteries on 10/26. She was seen by the consult team (signed off 10/29 as patient was unsafe for anticoagulation at that time). Reconsulted today for consideration of anticoagulation Repeat CT A/P 10/27 and 10/31 showed stable hematoma - no imaging since that time BLE DVT US negative for acute thrombosis on 11/02 Completed treatment for HCAP 9 units pRBCs recorded (plus ~9 units at OSH) 10 units PLT recorded, last on 11/14 Remains significantly thrombocytopenic (felt to be related to Cytoxan-induced BM suppression, ?hemolysis), receiving Nplate Last PLEX 11/13 Endorses ongoing left flank/back pain, large hematoma present +SOB, no hemoptysis Good spirits, working with PT Current Facility-Administered Medications: potassium chloride iv piggyback 20 mEq/100 mL 20 mEq INTRAVENOUS q 1 H HYDROmorphone 0.3 mg in NaCl 0.9% (DILAUDID) 0.3 mg INTRAVENOUS q 6 H PRN romiPLOStim 396 mcg injection (NPLATE) 4 mcg/kg/dose SUBCUTANEOUS ONCE acetaminophen 1,000 mg tab(s) (TYLENOL) 1,000 mg ORAL TID NIFEdipine ER (PROCARDIA XL) tab(s) 90 mg 90 mg ORAL DAILY torsemide 20 mg tab(s) (DEMADEX) 20 mg ORAL DAILY 0.9% NaCl 10 mL 10 mL INTRAVENOUS q 12 H 0.9% NaCl 20 mL 20 mL INTRAVENOUS PRN sodium citrate 4% 3-6 mL catheter lock 3-6 mL INTRALUMINAL APHERESIS PRN albuterol 2.5 mg /3 mL (0.083 %) 2.5 mg (PROVENTIL) 2.5 mg INHALATION q 4 WEEKS And pentamidine 300 mg nebulizer solution (NEBUPENT) 300 mg INHALATION q 4 WEEKS carvedilol 25 mg tab(s) (COREG) 25 mg ORAL/FEEDING TUBE BID w MEALS oxyCODONE IR 5-10 mg tab(s) (ROXICODONE) 5-10 mg ORAL/FEEDING TUBE q 4 H PRN predniSONE (DELTASONE) tab(s) 60 mg 60 mg ORAL/FEEDING TUBE DAILY lidocaine 5 % 1 Patch (LIDODERM) 1 Patch TRANSDERMAL DAILY And lidocaine patch - REMOVE OTHER AT BEDTIME And lidocaine - VERIFY PATCH OTHER q 8 H polyethylene glycol 3350 17 g packet (MIRALAX, GLYCOLAX) 17 g ORAL/FEEDING TUBE DAILY docusate sodium 100 mg cap(s) (COLACE) 100 mg ORAL BID senna 8.6 mg tab(s) (SENOKOT) 8.6 mg ORAL/FEEDING TUBE BID pantoprazole DR 40 mg tab(s) (PROTONIX) 40 mg ORAL DAILY (6 AM) ondansetron 8 mg tab(s) (ZOFRAN) 8 mg ORAL q 8 H PRN diphenhydrAMINE 50 mg (BENADRYL) 50 mg ORAL/FEEDING TUBE q 6 H PRN hydrocortisone sodium succinate (PF) 100 mg injection (Solu- CORTEF) 100 mg INTRAVENOUS q 4 H PRN diphenhydrAMINE 50 mg injection (BENADRYL) 50 mg INTRAVENOUS q 4 H PRN prochlorperazine 5 mg injection (COMPAZINE) 5 mg INTRAVENOUS q 6 H PRN dextrose 50% in water 25-50 mL syringe 12.5-25 g INTRAVENOUS PRN dextrose 40 % 15 g 15 g ORAL PRN glucagon 1 mg injection (GLUCAGEN) 1 mg SUBCUTANEOUS PRN Objective PHYSICAL EXAM: BP 192/93 Pulse 102 Temp 36.7 ?C (98.1 ?F) (Oral) Resp 19 Ht 160 cm (5' 3) Wt 99 kg (218 lb 4.1 oz) SpO2 95% BMI 38.66 kg/m? General: Resting in bed, NAD Cardiac: RRR, no murmurs Respiratory: Course expiration Abdominal/GI: Large area of tense, tender hematoma over left flank Extremity: 2+ pitting pedal edema with hyperpigmentation changes Pulse/vascular exam: 2+ radial DATA: Diagnostic tests reviewed for today's visit: Most recent labs and imaging results. 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 Readmitted 10/23 with hemorrhagic shock (Hgb 4.8, significant transfusion requirements - 18 units pRBC, 10 units PLR), CAPRICE requiring IHD, and large left RP bleed s/p IR embolization of left L3 artery on 10/23 and embolization of left L2-L3 arteries on 10/26. She was seen by the consult team (signed off 10/29 as patient was unsafe for anticoagulation at that time). Repeat CT A/P on 10/31 showed stable hematoma. No acute thrombotic complications during this admission and fortunately no recurrent DAH. She does however remains significantly thrombocytopenia (20-40K); hematology following and dosing Nplate, Cytoxan held. now reconsulted re: resumption of anticoagulation. -Favor against initiating bivalirudin until PLT are stable > 50K given recent major bleeding -Discussed possibility of eventual bridge with prophylactic jef 2.5 mg to Coumadin; however she is understandably hesitant after this recent bleeding complication -Fortunately she has had no acute thrombotic complications (despite multiple interruptions in AC since 09/2017), but remains at high risk of VTE with triple-positive APS -Additional recommendations to follow Discussed with Dr. Weldon SIGNATURE: Emily Conley DO PATIENT NAME: Paloma Cannon DATE: November 17, 2017 TIME: 10:02 AM PAGER/CONTACT #: [phone] . DR. FRED STONE, SR. HOSPITAL STAFF PHYSICIAN NOTE OF PERSONAL INVOLVEMENT IN CARE I have reviewed the note obtained and documented by the fellow and I personally participated in the fernandes components. I have discussed the case and management of the patient's care. The following comments revise or confirm relevant fernandes components of the note. Lila Weldon MD CONSULT PROG Observed: 11/17/2017 Status: COMPLETED Source: [place] 9:10 AM [facility] REPOSITORY HNO ID: [id number] Author: Justina Pollard (Cy) Service: Hematology Author Type: Physician Satellite Tv Technician Installer Type: Consult Progress Note Filed: 11/17/2017 6:58 PM Note Text: CONSULT PROGRESS NOTE SERVICE DATE: 11/17/2017 CONSULTING SERVICE: Hematology Subjective INTERVAL HPI: Platelet count has stabilized with the 40's range for the last few days. Last platelet transfusion was given on 11/14. Current hospital medications: potassium chloride iv piggyback 20 mEq/100 mL 20 mEq INTRAVENOUS q 1 H HYDROmorphone 0.3 mg in NaCl 0.9% (DILAUDID) 0.3 mg INTRAVENOUS q 6 H PRN romiPLOStim 396 mcg injection (NPLATE) 4 mcg/kg/dose SUBCUTANEOUS ONCE acetaminophen 1,000 mg tab(s) (TYLENOL) 1,000 mg ORAL TID NIFEdipine ER (PROCARDIA XL) tab(s) 90 mg 90 mg ORAL DAILY torsemide 20 mg tab(s) (DEMADEX) 20 mg ORAL DAILY 0.9% NaCl 10 mL 10 mL INTRAVENOUS q 12 H 0.9% NaCl 20 mL 20 mL INTRAVENOUS PRN sodium citrate 4% 3-6 mL catheter lock 3-6 mL INTRALUMINAL APHERESIS PRN gabapentin 300 mg cap(s) (NEURONTIN) 300 mg ORAL q 8 H albuterol 2.5 mg /3 mL (0.083 %) 2.5 mg (PROVENTIL) 2.5 mg INHALATION q 4 WEEKS pentamidine 300 mg nebulizer solution (NEBUPENT) 300 mg INHALATION q 4 WEEKS carvedilol 25 mg tab(s) (COREG) 25 mg ORAL/FEEDING TUBE BID w MEALS oxyCODONE IR 5-10 mg tab(s) (ROXICODONE) 5-10 mg ORAL/FEEDING TUBE q 4 H PRN predniSONE (DELTASONE) tab(s) 60 mg 60 mg ORAL/FEEDING TUBE DAILY lidocaine 5 % 1 Patch (LIDODERM) 1 Patch TRANSDERMAL DAILY lidocaine patch - REMOVE OTHER AT BEDTIME lidocaine - VERIFY PATCH OTHER q 8 H polyethylene glycol 3350 17 g packet (MIRALAX, GLYCOLAX) 17 g ORAL/FEEDING TUBE DAILY docusate sodium 100 mg cap(s) (COLACE) 100 mg ORAL BID senna 8.6 mg tab(s) (SENOKOT) 8.6 mg ORAL/FEEDING TUBE BID pantoprazole DR 40 mg tab(s) (PROTONIX) 40 mg ORAL DAILY (6 AM) ondansetron 8 mg tab(s) (ZOFRAN) 8 mg ORAL q 8 H PRN diphenhydrAMINE 50 mg (BENADRYL) 50 mg ORAL/FEEDING TUBE q 6 H PRN hydrocortisone sodium succinate (PF) 100 mg injection (Solu- CORTEF) 100 mg INTRAVENOUS q 4 H PRN diphenhydrAMINE 50 mg injection (BENADRYL) 50 mg INTRAVENOUS q 4 H PRN prochlorperazine 5 mg injection (COMPAZINE) 5 mg INTRAVENOUS q 6 H PRN dextrose 50% in water 25-50 mL syringe 12.5-25 g INTRAVENOUS PRN dextrose 40 % 15 g 15 g ORAL PRN glucagon 1 mg injection (GLUCAGEN) 1 mg SUBCUTANEOUS PRN Objective PHYSICAL EXAM: BP 154/72 Pulse 84 Temp (Src) 98.1 (Oral) Resp 19 Ht 5' 3 (1.60m) Wt 218 lb 4.1 oz (99.0kg) SpO2 95% BMI 38.67 kg/(m2). General: Alert, NAD. Heart/CV: ?Grossly RRR Lungs: CTA Abd: ?Soft, NT,ND Extremities/Skin: No rashes appreciated DATA: Component Latest Ref Rng AND Units 11/15/2017 11/16/2017 11/17/2017 WBC 3.70 - 11.00 k/uL 4.26 3.59 (L) 3.18 (L) RBC 3.90 - 5.20 m/uL 3.23 (L) 3.27 (L) 3.13 (L) Hemoglobin 11.5 - 15.5 g/dL 10.5 (L) 10.7 (L) 10.5 (L) Hematocrit 36.0 - 46.0 % 32.6 (L) 33.3 (L) 32.4 (L) MCV 80.0 - 100.0 fL 100.9 (H) 101.8 (H) 103.5 (H) MCH 26.0 - 34.0 pG 32.5 32.7 33.5 MCHC 30.5 - 36.0 g/dL 32.2 32.1 32.4 RDW-CV 11.5 - 15.0 % 24.8 (H) 24.6 (H) 24.1 (H) Platelet Count 150 - 400 k/uL 43 (L) 46 (L) 42 (L) MPV 9.0 - 12.7 fL <<DO NOT REPORT>> <<DO NOT REPORT>> <<DO NOT REPORT>> Absolute nRBC <0.01 k/uL 0.01 (H) 0.02 (H) <0.01 Impression/Recommendations 27 y/o female?with PMHx of 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 Recent admission 10/13/17-10/23/17 for hemoptysis and SOB, requiring intubation, was in MICU for management of DAH. readmitted to MICU again for ?extensive left retroperitoneal hemorrhage?s/p IR guided intervention (initially on 10/23 at [facility] and 10/26 here at [facility]. ? # Antiphospholipid antibody syndrome -recent?home therapy : Prednisone 60 mg ( home dose 5 mg), Cytoxan 75 mg ( home dose 150 mg), pheresis QOW ?-Please taper prednisone dose to 40 mg ?-Cytoxan stopped on 11/09 given persistent thrombocytopenia as this might he causing myelosuppression -Next PLEX due 11/27 ?-given N plate 2mcg/kg sq x1 on 11/09 and another dose of 3 mcg/kg on 11/13. Will give another dose of 4 mcg/kg today ( ordered) ?-Agree with changing Bacrin to Pentam Inh ?-AC has been on hold due to recent bleeding and persistent thrombocytopenia, however platelet count has stabilized with the 40's range for the last few days. Initially recommended to start low dose Bival today,however after further discussion with vascular medicine team, agree with waiting until PLT count >50k ?#Extensive left retroperitoneal hemorrhage -likely secondary to anticoagulant. Its an unfortunate case, she needs an anticoagulation for APS but bleeding episodes prohibits -sp IR intevention on 10/23 and 10/26? -Hemoglobin has been stable, would decrease transfusion threshold for platelet if PLT count <20 K ? #Abnormal hemolysis labs - with elevated LD, elevated retic, and an undetectable hapto. Hemoglobin has been stable. - ?Direct [place] is negative -ADAMTS 13 activity resulted at 56 % speaking against TTP -Abnormal hemolysis labs likely?related to resolving hematoma. Discussed with SIGNATURE: Justina Pollard PA-C PATIENT NAME: Paloma Cannon DATE: November 17, 2017 TIME: 9:10 AM PAGER: [phone] PROGRESS Observed: 11/17/2017 Status: COMPLETED Source: [place] 5:58 AM [facility] REPOSITORY HNO ID: [id number] Author: Ros Wayne Service: General Internal Medicine Author Type: Physician Type: Progress Notes Filed: 11/17/2017 4:03 PM Note Text: [facility] PROGRESS NOTE For questions regarding this patient today please page [phone] After 5 pm on weekdays and 3pm on weekends and holidays please page documentation clerk pager [phone] SERVICE DATE: 11/17/2017 SERVICE TIME: 5:58 AM INTERVAL HISTORY: - No acute events overnight - hypertensive overnight to 183/87, remains on 2L - Increased nifedipine ER yesterday to 90 mg qday for tighter blood pressure control - scheduled tylenol - PMANDR recommended SNF over acute rehabilitation center out of concern for bleeding risk - persistent LE edema b/l ? Labs: Hgb: 9.3-->9.5-->9.7-->9.0-->10.1-->9.8-->9.5-->9.6-->10-->10.1-->10.6-->10.5--> 10.7--10.5 Creatinine: 1.10-->1.40-->1.19-->1.29-->0.96-->1.1-->0.96-->0.88-->1.06-->1.08-->1.22-- >1.15 Plt: 40-->34-->28-->36-->29-->25-1u plt->34-->28-1u plt->34-->40-->26-1uplat->37-->43-->46-->42 ? PLAN FOR TODAY - will consider bivalirudin trial today to start bridge to coumadin - c/w torsemide 20 mg qday - contact IR re: sutures preventing biopatch from proper placement - f/u MMA level MEDICATIONS: Current hospital medications: potassium chloride 40 mEq CUP 40 mEq ORAL ONCE acetaminophen 1,000 mg tab(s) (TYLENOL) 1,000 mg ORAL TID NIFEdipine ER (PROCARDIA XL) tab(s) 90 mg 90 mg ORAL DAILY HYDROmorphone 0.3 mg in NaCl 0.9% (DILAUDID) 0.3 mg INTRAVENOUS q 4 H PRN torsemide 20 mg tab(s) (DEMADEX) 20 mg ORAL DAILY 0.9% NaCl 10 mL 10 mL INTRAVENOUS q 12 H 0.9% NaCl 20 mL 20 mL INTRAVENOUS PRN sodium citrate 4% 3-6 mL catheter lock 3-6 mL INTRALUMINAL APHERESIS PRN gabapentin 300 mg cap(s) (NEURONTIN) 300 mg ORAL q 8 H albuterol 2.5 mg /3 mL (0.083 %) 2.5 mg (PROVENTIL) 2.5 mg INHALATION q 4 WEEKS pentamidine 300 mg nebulizer solution (NEBUPENT) 300 mg INHALATION q 4 WEEKS carvedilol 25 mg tab(s) (COREG) 25 mg ORAL/FEEDING TUBE BID w MEALS oxyCODONE IR 5-10 mg tab(s) (ROXICODONE) 5-10 mg ORAL/FEEDING TUBE q 4 H PRN predniSONE (DELTASONE) tab(s) 60 mg 60 mg ORAL/FEEDING TUBE DAILY lidocaine 5 % 1 Patch (LIDODERM) 1 Patch TRANSDERMAL DAILY lidocaine patch - REMOVE OTHER AT BEDTIME lidocaine - VERIFY PATCH OTHER q 8 H polyethylene glycol 3350 17 g packet (MIRALAX, GLYCOLAX) 17 g ORAL/FEEDING TUBE DAILY docusate sodium 100 mg cap(s) (COLACE) 100 mg ORAL BID senna 8.6 mg tab(s) (SENOKOT) 8.6 mg ORAL/FEEDING TUBE BID pantoprazole DR 40 mg tab(s) (PROTONIX) 40 mg ORAL DAILY (6 AM) ondansetron 8 mg tab(s) (ZOFRAN) 8 mg ORAL q 8 H PRN diphenhydrAMINE 50 mg (BENADRYL) 50 mg ORAL/FEEDING TUBE q 6 H PRN hydrocortisone sodium succinate (PF) 100 mg injection (Solu- CORTEF) 100 mg INTRAVENOUS q 4 H PRN diphenhydrAMINE 50 mg injection (BENADRYL) 50 mg INTRAVENOUS q 4 H PRN prochlorperazine 5 mg injection (COMPAZINE) 5 mg INTRAVENOUS q 6 H PRN dextrose 50% in water 25-50 mL syringe 12.5-25 g INTRAVENOUS PRN dextrose 40 % 15 g 15 g ORAL PRN glucagon 1 mg injection (GLUCAGEN) 1 mg SUBCUTANEOUS PRN HOME MEDICATIONS: cyclophosphamide (CYTOXAN) 50 mg capsule Take 150 mg by mouth once daily. diphenhydrAMINE (BENADRYL) 50 mg capsule Take 1 capsule by mouth every 6 hours as needed for Itching/Rash. gabapentin (NEURONTIN) 100 mg capsule Take 1 capsule by mouth three times daily for 7 days. ondansetron (ZOFRAN, HYDROCHLORIDE,) 8 mg tablet Take 8 mg by mouth every 8 hours as needed for Nausea/Vomiting. pantoprazole DR (PROTONIX) 40 mg tablet Take 40 mg by mouth daily at bedtime. sulfamethoxazole-trimethoprim (BACTRIM DS) 800-160 mg per tablet Take 1 tablet by mouth every Monday,Monday,Monday. fluticasone (FLONASE) 50 mcg/actuation nasal spray Use 1-2 Sprays in each nostril once daily as needed for Cold/Allergy Symptoms (starting in allergy season). senna 8.6 mg tab Take 1 tablet by mouth twice daily as needed. PHYSICAL EXAM: VITAL SIGNS Patient Vitals for the past 24 hrs: BP Temp Temp src Pulse Resp SpO2 Weight 11/17/17 0513 183/87 - Oral 100 19 93 % - 11/17/17 0202 156/75 36.6 ?C (97.8 ?F) Oral 86 18 94 % - 11/16/17 2129 158/79 36.2 ?C (97.2 ?F) Oral 79 18 94 % - 11/16/17 1621 161/72 - - 82 - - - 11/16/17 1421 148/69 36.7 ?C (98.1 ?F) Oral 85 20 93 % - 11/16/17 0917 147/74 - - 92 - - - 11/16/17 0600 160/76 36.3 ?C (97.3 ?F) Oral 81 18 92 % 98.9 kg (218 lb 0.6 oz) BP 183/87 Pulse 100 Temp 36.6 ?C (97.8 ?F) (Oral) Resp 19 Ht 160 cm (5' 3) Wt 98.9 kg (218 lb 0.6 oz) SpO2 93% BMI 38.62 kg/m? Temp (24hrs), Av.4 ?C (97.6 ?F), Min:36.2 ?C (97.2 ?F), Max:36.7 ?C (98.1 ?F) INTAKE/OUTPUT Intake/Output Summary (Last 24 hours) at 11/17/17 0558 Last data filed at 11/17/17 0300 Gross per 24 hour Intake 410 ml Output 453 ml Net -43 ml General: Alert, oriented, cooperative.?In no acute distress. 2L NC Skin:?Chronic skin changes on bilateral LE below the knee?due to lymphedema HEENT: EOM. Pupils equal, round and reactive Cardiovascular: RRR. No murmur Lungs: Minimal crepitations at the bases than prior Abdomen: Soft, non-tender, no masses or organomegaly Extremities: 2+ peripheral edema but improving,?+2 DP pulses bilaterally Neurological: Moving all extremities freely? LAB DATA: CBC, Coags, BMP, Mg, Phos Recent Labs 11/17/17 0407 11/16/17 0524 11/15/17 0601 WBC 3.18* 3.59* 4.26 HB 10.5* 10.7* 10.5* HCT 32.4* 33.3* 32.6* PLT 42* 46* 43* NA 142 140 142 K 3.5* 3.8 3.8 CHLOR 100 99 101 CO2 28 26 26 BUN 50* 49* 52* CREAT 1.15* 1.22* 1.08* GLUC 120* 73* 74 CA 8.5 8.9 8.9 MG 1.9 2.0 2.1 P 4.3 4.4 3.9 ASSESSMENT AND PLAN: Active Hospital Problems Diagnosis - Retroperitoneal hematoma Retroperitoneal bleed: s/p 7 units PRBCs s/p IR emobolization of left L3 artery at [facility] on 10/23 IR embolization of left L2 and L3 arteries on 10/26 CT abd/pel 10/31: RP bleed stable when compared to previous imaging from 10/27 LDH 1730, haptoglobin <10, Tbili 1.3- concern for hemolysis as well. Per heme, thrombocytopenia and anemia likely related to cytoxan with stressed BM Cytoxan reduced to 75 mg daily Plan: Continue to monitor HANDH and transfuse PRBC if Hb<7 or symptomatic Continue to hold Anticoagulation until approved by Vascular medicine- initially recommended holding AC for at least 14 days since last bleeding. 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 Has received stenting of IVC and iliacs along with endograft of IVC. 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 C/B extensive RP bleed s/p L2, L3 embolization. N-plate 11/09, 11/13 Received Apheresis on 11/03, 11/13 (heme following); patient is on [id number] (Mondays) schedule outpatient Plan: Holding Cytoxan 75 mg in setting of worsening thrombocytopenia Continue prednisone 60 mg with bactrim ppx Appreciate hematology and recs Plan is to start bivalrudin trial once platelets stabilize and bridge to coumadin - CAPRICE (acute kidney injury) (HCC) CAPRICE on CKD III, 2/2 contrast, now requiring dialysis First HD at [facility] on 10/25 with tunneled dialysis catheter placement followed by 2 sessions [address] Abdomen/pelvis from 10/26 showed occlusion of B/L renal veins, outflow not appreciated- could be attributing to CAPRICE and CKD Bladder scan Plan: Nephrology following- appreciate recommendations Daily BMPs to watch K, Na and phosphorus levels Renal dosing of medication Avoid excess fluids and nephrotoxic drugs - HTN (hypertension) Mildly decreased systolic function, diastolic function indeterminate on 10/13/17 ECHO. 10/28: Run of SBP in 200s overnight (likely d/t pain), given hydralazine however still consistently in 170s-180s 10/29: Still hypertensive, required 4 doses of hydralazine overnight Switched Amlodipine 10 mg to nifedipine 30mg on 11/10, and increased Coreg from 6.25 to 25 mg BID Plan: Increase nifedipine to 90mg 11/16 and keeping Coreg at current dosing, can up titrate coreg if tolerating well (HR currently 80-100) Can consider adding PRN hydralazine for SBP>180 mm Hg, - Diffuse pulmonary alveolar hemorrhage Currently stable, no new episodes Has had 6 admissions recently for acute respiratory failure requiring mechanical ventilation Cytoxan was reduced from 150 to 75 mg due to concern for BM toxicity; renally dosed Plan: Continue to monitor respiratory status Continue oxygen therapy at 2L NC Holding Cytoxan in setting of worsening thrombocytopenia Continue Prednisone 60 mg daily Switched bactrim to pentamidine for ppx on 11/12 Will reach out to outpatient provider regarding switch to pentamidine from bactrim, per heme recs - Moraxella catarrhalis pneumonia (HCC) Had respiratory cultures growing Moraxella catarrhalis Received ceftriaxone 10/27-11/03- 7 days therapy WBC trended down from 21 K to 12K. Currently at baseline O2 requirement but still slightly tachypneic Completed course of ceftriaxone. Plan: Continue to monitor respiratory status closely BPH per RT Incentive spirometry - Peripheral neuropathy - History of heparin-induced thrombocytopenia Avoid all heparin products. - Weakness of left leg 11/02 Left leg weakness/parasthesia Likely related to lumbar nerve compression from large retroperitoneal hematoma Neurology was following, recommended no further intervention On gabapentin renally dosed. - Right groin pain 10/27: C/o acute pain this morning, access site for embolization at [facility], no erythema or induration appreciated on exam, exquisitely TTP Groin study showed no signs of PSA, known AV fistula visualized with retrograde flow, vascular med aware- no further recs 10/28: pain less severe, no physical exam findings Repeat Leg DVT shows no pseudoaneurysm Likely due to nerve compression/RP hematoma causing compressive symtpoms S/p R groin drain placed at [facility] on 10/24 s/p L groin drain placed at [facility] during embolization on 10/26 Plan: - Pain management-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 WAITER/WAITRESS CABIN CLASS as of transfer to [facility] - Will continue to wean dilaudid as pt tolerates, currently on Dilaudid 0.3 mg q4h PRN for pain, oxycodone PO PRN and gabapentin - IR consult for drain evaluation and removal on 11/05 MAINTENANCE: VTE PROPHYLAXIS:?will start bivalirudin most likely today NEED FOR ZUNIGA- Removed 11/14/17 LINES: Double lumen dialysis catheter 10/25/17 Dispo-?[facility] v. Acute rehabilitation center This note is not final until staffed by the attending physician and authenticated by responsible provider. SIGNATURE: Olga Reyez MD PATIENT NAME: Paloma Cannon DATE: November 17, 2017 TIME: 5:58 AM PAGER: [phone] RAF Terry ATTENDING NOTE: Chart reviewed, patient seen and examined on 11/17 at 8:30am and fernandes elements of the history and physical were discussed in detail and confirmed with the resident team. I have reviewed the above note, examined the patient and agree with the documented findings and plan of care as listed in Dr Reyez's note. Any addendums above are in bold text. Assessment: s/p L RP bleed on 10/23/17?with embolization and coils to Left?L2 + L3 arteries, (10/23 + 10/26): ?s/p numerous RBC transfusions + Hgb has stabilized Persistent thrombocytopenia despite mult platelet tranfusions + ENDPLATE 11/09 + 11/13+ DC?of Cytoxan (11/09) + Bactrim (11/12).. platelet count today is 43K, (s/p 1 unit of platelets on 11/14) HTN control NOT ideal but should improve w/ increase of Procardia XL + long hx of Catastrophic APS as noted above, she remains off AC due to persistent thrombocytopenia: (+ has Hx of HIT) Resolved?Moraxella catarrhalis HCAP (?Ceftriaxone 10/28 to 11/03) Remains fluid overloaded but mainly in 3rd space areas.. improving slowly?w/ resumption of Demadex 20mg qAM on 11/13? CAPRICE on CKD on admission, renal function is holding stable Chronic LE edema due to chronic DVT: at baseline, now w/ wraps ? ? Plan: Same meds for now except: - increase GabaP to 400-400-300 - begin to taper down IV Dilaudid dose further Per HEME, OK to begin Bival, will ask for Vasc Med assist Last PLEX was given on 11/13?and then plan for q 2weeks.. Rehab center is requesting that PLEX be done prior to transfer to their center ? + Encourage activity + time up in chair Ros Wayne MD FACP Attending, pager [phone] MAGNESIUM Collected: 11/17/2017 Status: F Source: [place] 4:07 AM [facility] REPOSITORY TYPE CODE TESTS RESULT OUT OF REFERENCE UNITS RANGE LAB MG 1.7-2.3 mg/dL Magnesium 1.9 Performed By: #### MG1, PHOS, BMP, CBC, B12 #### [facility] [address] [address] PHOSPHORUS Collected: 11/17/2017 Status: F Source: [place] 4:07 AM [facility] REPOSITORY TYPE CODE TESTS RESULT OUT OF REFERENCE UNITS RANGE LAB PHOS 2.7-4.8 mg/dL Phosphorus 4.3 Performed By: #### MG1, PHOS, BMP, CBC, B12 #### [facility] [address] [place] [address] BASIC METABOLIC PANL Collected: 11/17/2017 Status: F Source: [place] 4:07 [facility] REPOSITORY TYPE CODE TESTS RESULT OUT OF REFERENCE UNITS RANGE LAB GLU 74-99 mg/dL High Glucose 120 Result Comment: The [place] [employer] (ADA) provides guidance for cutoff values for fasting glucose and random glucose. The ADA defines fasting as no caloric intake for at least 8 hours. Fas ting plasma glucose results between 100 to 125 mg/dL indicate increased risk for diabetes (prediabetes). Fasting plasma glucose results greater than or equal to 126 mg/dL meet the criteria for diagnosis of diabetes. In the absence of unequivocal hyperglycemia, results should be confirmed by repeat testing. In a patient with classic symptoms of hyperglycemia or hyperglycemic crisis, random plasma glucose results greater than or equal to 200 mg/dL meet the criteria for diagnosis of diabetes. Reference: Standards of Medical Care in Diabetes 2016, [place] [employer]. Diabetes Care. 2016.39(Suppl 1). LAB BUN 7-21 mg/dL BUN High 50 LAB CRET 0.58-0.96 mg/dL Creatinine High 1.15 LAB NA 136-144 mmol/L Sodium 142 LAB K 3.7-5.1 mmol/L Low Potassium 3.5 LAB CL 97-105 mmol/L Chloride 100 LAB CO2 22-30 mmol/L CO2 28 LAB AGAP 9-18 mmol/L Anion Gap 14 LAB CA 8.5-10.2 mg/dL Calcium, Total 8.5 LAB GFRAA eGFR- Amer. >60 LAB GFRNAA . eGFR-All Other Races 56 Result Comment: eGFR (Estimated GFR) Units of measure: mL/min/1.73 meters squared eGFR is derived from the reexpressed MDRD Study equation using the following parameters: serum creatinine, age, gender and race. The creatinine assay has been calibrated to be traceable to IDMS. An eGFR <60 mL/min/1.73m2 for >3 months is consistent with chronic kidney disease. Refer to KDOQI guidelines for clinical interpretation. In patients with unstable renal function, e.g. those with acute kidney injury, the eGFR may not accurately reflect actual GFR. Performed By: #### MG1, PHOS, BMP, CBC, B12 #### [facility] [address] [place], [place] [address] CBC Collected: 11/17/2017 Status: F Source: [place] 4:07 AM [facility] REPOSITORY TYPE CODE TESTS RESULT OUT OF REFERENCE UNITS RANGE LAB WBC 3.70-11.00 k/uL Low WBC 3.18 LAB RBC 3.90-5.20 m/uL Low RBC 3.13 LAB HGB 11.5-15.5 g/dL Low Hemoglobin 10.5 LAB HCT 36.0-46.0 % Low Hematocrit 32.4 LAB MCV 80.0-100.0 fL MCV High 103.5 LAB MCH 26.0-34.0 pG MCH 33.5 LAB MCHC 30.5-36.0 g/dL MCHC 32.4 LAB RDWCV 11.5-15.0 % RDW-CV High 24.1 LAB PLTCT 150-400 k/uL Low Platelet Count 42 Result Comment: Result checked and verified No clot detected. LAB MPV 9.0-12.7 fL MPV <<DO NOT REPORT>> LAB ABSNUC <0.01 k/uL <0.01 Absolute nRBC Performed By: #### MG1, PHOS, BMP, CBC, B12 #### [facility] [address] [place], [place] [address] VITAMIN B12 Collected: 11/17/2017 Status: F Source: [place] 4:07 AM [facility] REPOSITORY TYPE CODE TESTS RESULT OUT OF REFERENCE UNITS RANGE LAB B12 232-1245 pg/mL Vitamin B12 272 Performed By: #### MG1, PHOS, BMP, CBC, B12 #### [facility] [address] [place], [place] [address] PROGRESS Observed: 11/16/2017 Status: COMPLETED Source: [place] 4:21 PM [facility] REPOSITORY HNO ID: [id number] Author: Ros Wayne Service: General Internal Medicine Author Type: Physician Type: Progress Notes Filed: 11/16/2017 9:58 PM Note Text: RAF Terry PROGRESS NOTE For questions regarding this patient today please page [phone] After 5 pm on weekdays and 3pm on weekends and holidays please page documentation clerk pager [phone] SERVICE DATE: 11/16/2017 SERVICE TIME: 4:21 PM INTERVAL HISTORY: - No events overnight - hypertensive overnight, remains on 2L - increased dilaudid PRN dose to 0.3mg yesterday - PMANDR recommended SNF over acute rehabilitation center out of concern for bleeding risk - clear lungs but persistent LE edema b/l Labs: Hgb: 9.3-->9.5-->9.7-->9.0-->10.1-->9.8-->9.5-->9.6-->10-->10.1-->10.6-->10.5--> 10 Creatinine: 1.10-->1.40-->1.19-->1.29-->0.96-->1.1-->0.96-->0.88-->1.06-->1.08-->1.22 Plt: 40-->34-->28-->36-->29-->25-1u plt->34-->28-1u plt->34-->40-->26-1uplat->37-->43-->46 PLAN FOR TODAY - Increase nifedipine ER to 90 mg qday for tighter blood pressure control - c/w torsemide 20 mg qday - scheduled tylenol - will consider bivalrudin trial tomorrow to start bridge to coumadin - contact IR re: sutures preventing biopatch from proper placement MEDICATIONS: Current hospital medications: acetaminophen 1,000 mg tab(s) (TYLENOL) 1,000 mg ORAL TID NIFEdipine ER (PROCARDIA XL) tab(s) 90 mg 90 mg ORAL DAILY HYDROmorphone 0.3 mg in NaCl 0.9% (DILAUDID) 0.3 mg INTRAVENOUS q 4 H PRN torsemide 20 mg tab(s) (DEMADEX) 20 mg ORAL DAILY 0.9% NaCl 10 mL 10 mL INTRAVENOUS q 12 H 0.9% NaCl 20 mL 20 mL INTRAVENOUS PRN sodium citrate 4% 3-6 mL catheter lock 3-6 mL INTRALUMINAL APHERESIS PRN gabapentin 300 mg cap(s) (NEURONTIN) 300 mg ORAL q 8 H albuterol 2.5 mg /3 mL (0.083 %) 2.5 mg (PROVENTIL) 2.5 mg INHALATION q 4 WEEKS pentamidine 300 mg nebulizer solution (NEBUPENT) 300 mg INHALATION q 4 WEEKS carvedilol 25 mg tab(s) (COREG) 25 mg ORAL/FEEDING TUBE BID w MEALS oxyCODONE IR 5-10 mg tab(s) (ROXICODONE) 5-10 mg ORAL/FEEDING TUBE q 4 H PRN predniSONE (DELTASONE) tab(s) 60 mg 60 mg ORAL/FEEDING TUBE DAILY lidocaine 5 % 1 Patch (LIDODERM) 1 Patch TRANSDERMAL DAILY lidocaine patch - REMOVE OTHER AT BEDTIME lidocaine - VERIFY PATCH OTHER q 8 H polyethylene glycol 3350 17 g packet (MIRALAX, GLYCOLAX) 17 g ORAL/FEEDING TUBE DAILY docusate sodium 100 mg cap(s) (COLACE) 100 mg ORAL BID senna 8.6 mg tab(s) (SENOKOT) 8.6 mg ORAL/FEEDING TUBE BID pantoprazole DR 40 mg tab(s) (PROTONIX) 40 mg ORAL DAILY (6 AM) ondansetron 8 mg tab(s) (ZOFRAN) 8 mg ORAL q 8 H PRN diphenhydrAMINE 50 mg (BENADRYL) 50 mg ORAL/FEEDING TUBE q 6 H PRN hydrocortisone sodium succinate (PF) 100 mg injection (Solu- CORTEF) 100 mg INTRAVENOUS q 4 H PRN diphenhydrAMINE 50 mg injection (BENADRYL) 50 mg INTRAVENOUS q 4 H PRN prochlorperazine 5 mg injection (COMPAZINE) 5 mg INTRAVENOUS q 6 H PRN dextrose 50% in water 25-50 mL syringe 12.5-25 g INTRAVENOUS PRN dextrose 40 % 15 g 15 g ORAL PRN glucagon 1 mg injection (GLUCAGEN) 1 mg SUBCUTANEOUS PRN HOME MEDICATIONS: cyclophosphamide (CYTOXAN) 50 mg capsule Take 150 mg by mouth once daily. diphenhydrAMINE (BENADRYL) 50 mg capsule Take 1 capsule by mouth every 6 hours as needed for Itching/Rash. gabapentin (NEURONTIN) 100 mg capsule Take 1 capsule by mouth three times daily for 7 days. ondansetron (ZOFRAN, HYDROCHLORIDE,) 8 mg tablet Take 8 mg by mouth every 8 hours as needed for Nausea/Vomiting. pantoprazole DR (PROTONIX) 40 mg tablet Take 40 mg by mouth daily at bedtime. sulfamethoxazole-trimethoprim (BACTRIM DS) 800-160 mg per tablet Take 1 tablet by mouth every Monday,Monday,Monday. fluticasone (FLONASE) 50 mcg/actuation nasal spray Use 1-2 Sprays in each nostril once daily as needed for Cold/Allergy Symptoms (starting in allergy season). senna 8.6 mg tab Take 1 tablet by mouth twice daily as needed. PHYSICAL EXAM: VITAL SIGNS Patient Vitals for the past 24 hrs: BP Temp Temp src Pulse Resp SpO2 Weight 11/16/17 1421 148/69 36.7 ?C (98.1 ?F) Oral 85 20 93 % - 11/16/17 0917 147/74 - - 92 - - - 11/16/17 0600 160/76 36.3 ?C (97.3 ?F) Oral 81 18 92 % 98.9 kg (218 lb 0.6 oz) 11/15/17 2145 158/76 36.6 ?C (97.8 ?F) Oral 82 18 90 % - 11/15/17 1713 150/81 36.4 ?C (97.6 ?F) Oral 82 18 94 % - BP 148/69 Pulse 85 Temp 36.7 ?C (98.1 ?F) (Oral) Resp 20 Ht 160 cm (5' 3) Wt 98.9 kg (218 lb 0.6 oz) SpO2 93% BMI 38.62 kg/m? Temp (24hrs), Av.5 ?C (97.7 ?F), Min:36.3 ?C (97.3 ?F), Max:36.7 ?C (98.1 ?F) INTAKE/OUTPUT Intake/Output Summary (Last 24 hours) at 11/16/17 1621 Last data filed at 11/16/17 1421 Gross per 24 hour Intake 350.3 ml Output 453 ml Net -102.7 ml General: Alert, oriented, cooperative.?In no acute distress. 2L NC Skin:?Chronic skin changes on bilateral LE below the knee?due to lymphedema HEENT: EOM. Pupils equal, round and reactive Cardiovascular: RRR. No murmur Lungs: Minimal crepitations at the bases than prior Abdomen: Soft, non-tender, no masses or organomegaly Extremities: 2+ peripheral edema but improving,?+2 DP pulses bilaterally Neurological: Moving all extremities freely? LAB DATA: Component Latest Ref Rng AND Units 11/16/2017 Glucose 74 - 99 mg/dL 73 (L) BUN 7 - 21 mg/dL 49 (H) Creatinine 0.58 - 0.96 mg/dL 1.22 (H) Sodium 136 - 144 mmol/L 140 Potassium 3.7 - 5.1 mmol/L 3.8 Chloride 97 - 105 mmol/L 99 CO2 22 - 30 mmol/L 26 Anion Gap 9 - 18 mmol/L 15 Calcium 8.5 - 10.2 mg/dL 8.9 eGFR- >60 eGFR-All Other Races . 52 WBC 3.70 - 11.00 k/uL 3.59 (L) RBC 3.90 - 5.20 m/uL 3.27 (L) Hemoglobin 11.5 - 15.5 g/dL 10.7 (L) Hematocrit 36.0 - 46.0 % 33.3 (L) MCV 80.0 - 100.0 fL 101.8 (H) MCH 26.0 - 34.0 pG 32.7 MCHC 30.5 - 36.0 g/dL 32.1 RDW-CV 11.5 - 15.0 % 24.6 (H) Platelet Count 150 - 400 k/uL 46 (L) Absolute nRBC <0.01 k/uL 0.02 (H) Magnesium 1.7 - 2.3 mg/dL 2.0 Phosphorus 2.7 - 4.8 mg/dL 4.4 ASSESSMENT AND PLAN: Active Hospital Problems Diagnosis - Retroperitoneal hematoma Retroperitoneal bleed: s/p 7 units PRBCs s/p IR emobolization of left L3 artery at [facility] on 10/23 IR embolization of left L2 and L3 arteries on 10/26 CT abd/pel 10/31: RP bleed stable when compared to previous imaging from 10/27 LDH 1730, haptoglobin <10, Tbili 1.3- concern for hemolysis as well. Per heme, thrombocytopenia and anemia likely related to cytoxan with stressed BM Cytoxan reduced to 75 mg daily Plan: Continue to monitor HANDH and transfuse PRBC if Hb<7 or symptomatic Continue to hold Anticoagulation until approved by Vascular medicine- initially recommended holding AC for at least 14 days since last bleeding. 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 Has received stenting of IVC and iliacs along with endograft of IVC. 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 C/B extensive RP bleed s/p L2, L3 embolization. N-plate 11/09, 11/13 Received Apheresis on 11/03, 11/13 (heme following); patient is on [id number] (Mondays) schedule outpatient Plan: Holding Cytoxan 75 mg in setting of worsening thrombocytopenia Continue prednisone 60 mg with bactrim ppx Appreciate hematology and VM recs Plan is to start bivalrudin trial once platelets stabilize and bridge to coumadin - CAPRICE (acute kidney injury) (HCC) CAPRICE on CKD III, 2/2 contrast, now requiring dialysis First HD at [facility] on 10/25 with tunneled dialysis catheter placement followed by [address] Abdomen/pelvis from 10/26 showed occlusion of B/L renal veins, outflow not appreciated- could be attributing to CAPRICE and CKD Bladder scan Plan: Nephrology following- appreciate recommendations Daily BMPs to watch K, Na and phosphorus levels Renal dosing of medication Avoid excess fluids and nephrotoxic drugs - HTN (hypertension) Mildly decreased systolic function, diastolic function indeterminate on 10/13/17 ECHO. 10/28: Run of SBP in 200s overnight (likely d/t pain), given hydralazine however still consistently in 170s-180s 10/29: Still hypertensive, required 4 doses of hydralazine overnight Switched Amlodipine 10 mg to nifedipine 30mg on 11/10, and increased Coreg from 6.25 to 25 mg BID Plan: Increase nifedipine to 90mg 11/16 and keeping Coreg at current dosing, can up titrate coreg if tolerating well (HR currently 80-100) Can consider adding PRN hydralazine for SBP>180 mm Hg, - Diffuse pulmonary alveolar hemorrhage Currently stable, no new episodes Has had 6 admissions recently for acute respiratory failure requiring mechanical ventilation Cytoxan was reduced from 150 to 75 mg due to concern for BM toxicity; renally dosed Plan: Continue to monitor respiratory status Continue oxygen therapy at 2L NC Holding Cytoxan in setting of worsening thrombocytopenia Continue Prednisone 60 mg daily Switched bactrim to pentamidine for ppx on 11/12 Will reach out to outpatient provider regarding switch to pentamidine from bactrim, per heme recs - Moraxella catarrhalis pneumonia (HCC) Had respiratory cultures growing Moraxella catarrhalis Received ceftriaxone 10/27-11/03- 7 days therapy WBC trended down from 21 K to 12K. Currently at baseline O2 requirement but still slightly tachypneic Completed course of ceftriaxone. Plan: Continue to monitor respiratory status closely BPH per RT Incentive spirometry - Peripheral neuropathy - History of heparin-induced thrombocytopenia Avoid all heparin products. - Weakness of left leg 11/02 Left leg weakness/parasthesia Likely related to lumbar nerve compression from large retroperitoneal hematoma Neurology was following, recommended no further intervention On gabapentin renally dosed. - Right groin pain 10/27: C/o acute pain this morning, access site for embolization at [facility], no erythema or induration appreciated on exam, exquisitely TTP Groin study showed no signs of PSA, known AV fistula visualized with retrograde flow, vascular med aware- no further recs 10/28: pain less severe, no physical exam findings Repeat Leg DVT shows no pseudoaneurysm Likely due to nerve compression/RP hematoma causing compressive symtpoms S/p R groin drain placed at [facility] on 10/24 s/p L groin drain placed at [facility] during embolization on 10/26 Plan: - Pain management-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 SIGNATURE: Olga Reyez MD PATIENT NAME: Paloma Cannon DATE: November 16, 2017 TIME: 4:21 PM PAGER: [phone] RAF Terry ATTENDING NOTE: Appreciate HEME team help Chart reviewed, patient seen and examined on 11/16 at 3pm and fernandes elements of the history and physical were discussed in detail and confirmed with the resident team. I have reviewed the above note, examined the patient and agree with the documented findings and plan of care as listed in Dr Reyez's note. Any addendums above are in bold text. Assessment: s/p L RP bleed on 10/23/17 with embolization and coils to Left L2 + L3 arteries, (10/23 + 10/26: s/p numerous RBC transfusions + Hgb has stabilized Persistent thrombocytopenia despite mult platelet tranfusions + ENDPLATE 11/09 + 11/13+ DC of Cytoxan (11/09) + Bactrim (11/12).. platelet count today is 46K, (s/p 1 unit of platelets on 11/14) HTN control NOT ideal + long hx of Catastrophic APS as noted above, she remains off AC due to persistent thrombocytopenia: (+ has Hx of HIT) Resolved Moraxella catarrhalis HCAP ( Ceftriaxone 10/28 to 11/03) Remains fluid overloaded but mainly in 3rd space areas.. continued improvement w/ resumption of Demadex 20mg qAM on 11/13? CAPRICE on CKD on admissipn, renal function is slowly trending upward Chronic LE edema due to chronic DVT: at baseline, now w/ wraps ? ? Plan: Same meds for now (continue Demadex 20mg qAM) Last PLEX was given on 11/13?and then plan for q 2weeks.. Rehab center is requesting that PLEX be done prior to transfer to their center Per HEME: - transfuse for platelet count below 20K - begin Bival infusion when platelry count is > 50K (+ resume Coumadin soon after) + Same meds except: Cont Coreg 25mg BID Increase Procardia XL to 90mg qAM Ros Wayne MD FACP Attending, pager [phone] [facility] Observed: 11/16/2017 Status: COMPLETED Source: [place] 2:45 PM [facility] REPOSITORY HNO ID: [id number] Author: Kayla Levin (Therapist), [place] Service: Music Therapy Author Type: Music Therapist Type: Allied Health Filed: 11/17/2017 9:21 AM Note Text: MUSIC THERAPY NOTE SERVICE DATE: 11/16/2017 SERVICE TIME: 2:45pm Referred By: [facility] Reason for Referral: Anxiety Session Type: Follow Up Time Spent (minutes): 90 GOALS: Goals: Decrease Anxiety;Improve Coping;Improve Mood;Increase Relaxation;Increase Self-expression;Provide Emotional Support Coping Items Addressed: Skills;Treatment;Hospitalization INTERVENTIONS: Interventions: Music-Assisted Relaxation;Therapeutic Use of Self/Verbal Processing;Singing;Music Listening;Making Choices Making Choices: Interventions Music-Assisted Relaxation: Breathing;Imagery Techniques While Listening To Music Listening Type: Live Response Before After Pain 8/10 (Unable to obtain. See note.) Anxiety 5/10 (Unable to obtain. See note.) Mood 1/4 (Unable to obtain. See note.) Facial Behavior 1 - Neutral 1 - Neutral Body Movement 0 - No Movement/Appropriate Movement 0 - No Movement/Appropriate Movement Sleep N/A - Awake N/A - Awake Vocal 1 - Neutral/No Vocal 1 - Neutral/No Vocal Scale: 0 = No pain/anxiety 10 = Worst possible pain/anxiety RESPONSE: Music Choices: Made Choices Number of Choices: 3 Response During Interventions: Knew Songs;Sang;Practiced deep breathing to music Music Used: You Are My [place] Style of Music: Traditional Family Present: No Patient's Verbal Response: Positive OUTCOME: Goals: Met;Unable to Determine Met: Increase Self-expression;Promote Feelings of Control;Provide Emotional Support FOLLOW UP: Will Continue to Follow Pt presented with neutral affect upon MT's arrival and was sitting up in bed, agreeable to session. Pt rated symptoms as shown above, becoming tearful and sharing of her medical journey. Pt expressed feeling traumatized by past experiences regarding her medical condition, to which MT provided empathetic listening, validation, and normalization as appropriate. Pt was agreeable to participating in session with roommate, expressing that they have become friends. MT facilitated live music intervention and guided pt and roommate through breathing and imagery techniques to the music to assist with relaxation and anxiety. Pt fully participated, and also engaged in singing with eyes closed when MT began song chosen by pt and roommate. Pt's roommate then abruptly fell out of chair during session and was unresponsive, to which MT immediately responded and sought help, other hospital personal arriving quickly and providing care. Pt became very short of breath given commotion with roommate and was tearful, to which MT held pt's hand and provided support as able throughout as roommate received care. Once code ended, pt chose for MT to stay with her and pt processed this experience with MT. Pt's breathing gradually returned to baseline and pt was no longer tearful. MT offered suggestions for coping skills for pt to use on her own, to which pt was agreeable. Pt also shared that she would play her PS3. MT offered to put in consult for additional support for pt, however pt declined. MT ended session once based expressed feeling that she was coping well. Will continue to follow. SIGNATURE: Kayla Levin [facility] PATIENT NAME: Paloma Cannon DATE: November 17, 2017 TIME: 8:59 AM PAGER/CONTACT #: [phone] [facility]IED HEALTH Observed: 11/16/2017 Status: COMPLETED Source: [place] 2:38 PM [facility] REPOSITORY O ID: [id number] Author: Allie Baig (Rn), RN Service: Wound/Ostomy Author Type: Registered Nurse Type: Allied Health Filed: 11/16/2017 2:40 PM Note Text: ET/WOCN Nursing Consult Topic: ET/WOCN Consultation Note ET Outcome: Pt had pouch placed 11/13/17. Pouch is very well intact. Pt states that output has decreased significantly but still moderate amount. Goal is now 5-7 days. Pt has set of supplies at bedside. ET's Next Scheduled Visit: 11/20 scheduled weekly change Time Increment: 15 minutes Allie STEVE RN WOC Nursing [facility] Nursing - Please place consult via [facility]. Thank you. (M-F: [phone]; Weekends AND Holidays: [phone]). THERAPY NT Observed: 11/16/2017 Status: COMPLETED Source: [place] 2:06 PM [facility] [place] REPOSITORY HNO ID: [id number] Author: Tamiko Son (Pt) Service: Physical Therapy Author Type: Physical Therapist Type: Therapy (PT/OT/Speech/Resp) Filed: 11/16/2017 2:12 PM Note Text: Physical Therapy Wound/Lymph Treatment SERVICE DATE: 11/16/2017 SERVICE TIME: 922 to 1003 ROOM: [place] [address] Recommended Discharge Disposition Comments: will require further assessment Anticipated Discharge Needs: Undetermined PT Recommendations to Nursing: With assist of 1 person;Transfer to/from chair;OOB for Meals 6 Clicks Score: 14 Skin Condition: BLE lymphedema Frequency of Dressing Change:Daily?- compression wraps to be worn during the day hours ?Physical Therapy to Perform Dressing Change: 4x/week to be coordinated with nursing ?Nursing to Perform Dressing Change:1x/day Monday and Monday Dressing/Treatment Type: See Clinical Documentation report for specific dressing information. ASSESSMENT : Today pt appears to have increased BLE edema as evidenced by increased circumferential measurements. Pt has not been wearing compression wraps and has not been seen by PT in a week which are contributing factors. Pt remains motivated and appropriate for skilled intervention. Pt is physically unable to perform compression wrapping therefore will need to perform training with a family member. Plan to continue with current POC at this time. Patient Disposition at Start of Session: Supine in Bed Patient Disposition at End of Session: Supine in Bed;Call [place] in Reach Tolerated Full Session Fatigue Physical Therapy Problem List: Cognitive Deficit;Education Deficit;Decreased Activity Tolerance;Decreased Strength;Functional Mobility Impairment Patient /Caregiver Goals: Unique to general PT Goals for Plan of Care: 1. ?Decongestion of BLE?with girth measurements decreased by 2-4?cm per segment to increase level of independence with functional mobility and ADL's, decrease pain, decrease recurrence of infection, improved range of motion and allow appropriate fit in compressive garment. ?? 2. ??Pt and/or caregiver will demonstrate compliance in knowledge of lymphedema precautions including meticulous skin and nail care to reduce risk of infection and further exacerbation. 3. ??Pt and/or caregiver will demonstrate the correct method of Lymphatic Bandaging/compression technique and independent understanding of the principles and theory of compression 4. ??Pt and/or caregiver will be independent in their exercise program to enchance Lymphatic flow and decongestion of the affected body parts 5. Patient/ Caregiver will be able to demonstrate competence with offloading recommendations and pressure relieving strategies 6. Patient/ Caregiver will be able to state the signs and symptoms of infection Progress Toward Goals: Progressing slower than expected Due To: medical status Rehab Potential: Fair PLAN: Treatment Frequency (times per week): 4 Current admission Treatment Interventions: Education;Self Care / Home Management;Joint Mobility;Strengthening;Functional Mobility Training;Balance Training;Edema Management;Pain Management Plan of Care developed with: Patient TREATMENT INTERVENTIONS: Interventions Provided: Manual Therapy (17704) Manual Therapy (23966) Treatment Minutes: 41 3 units Skilled Intervention: Manual skills to improve joint mobility, range of motion, and decrease pain. Educated patient on the following aspect of Complete Decongestive Therapy (CDT): 1.??Compressive Therapy: Discussed rationale for compression garment and bandaging Instructed in proper technique for compression wrapping Skilled interventions: - Increase lymaphtic fluid dynamics - Increase skin extensibility - Utilized anatomy knowledge of the therapist, and assessment of patient's response to intervention. ? Manual Compression performed: 1. ?Skin inspected and?cleansed thoroughly 2. ?Applied lotion?to BLE? 3. ?Applied 1 surgigrip + 1?surepress wraps applied at 50% tension?with a 50% overlap (deferred ankle padding today). ? Spoke at length with pt re: when to loosen or remove the bandages (i.e.: in the event that pain becomes a limiting factor or pt experienced new onset SOB or worsening of respiratory status). Pt verbalized understanding. ? Education: 1. ?Discussed with patient and nursing the risks and benefits of compression therapy and how compression is indicated in this case. 2. ?Educated patient/ caregiver?regarding rationale for compression wrapping. 3. ?Instructed in proper technique for compression wrapping.? Total Timed Code Treatment Minutes: 41 Total Treatment Time (minutes): 41 SUBJECTIVE: Current Hospital Course: Chart reviewed and no significant medical updates relevant to therapy were noted Patient Report: Pt was pleasant and cooperative. I am willing to try to wear the compression wraps today. Pt also stated that she is excited to be moving more with therapy. 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 Entry To Home: No Stairs Number Of Stairs To Bed/Bath: 0 Tub/Shower Type: walk in shower Equipment Owned: Commode-Raised;Grab Bars-Shower;Grab Bars-Toilet;Shower Chair;Home Oxygen Prior Functional Level: Required Assistance Assistance Required With: Cleaning;Laundry;Meals;Shopping;Transportation Prior Wound Care: Other: See Comment (unable to don compression stockings (I)) OBJECTIVE: Location Evaluation Date: 08/01/17 Date: 11/03/17 Date: 11/16/17 Right Left Right Left Right Left Metatarsal Heads 24cm 22.5cm 24cm 24cm 24cm 24.5cm Ankle ([place]) 23.25cm 22.5cm 24cm 25cm 24.5cm 25cm 10cm above malleoli 28.5cm 28cm 30cm 27.5cm 31cm 29.5cm 20cm above malleoli 42cm 43.25cm 42cm 40cm 46cm 42cm 30cm above malleoli 45.5cm 41.5cm 46cm 47cm 46cm 44.5cm LLE Circumferential Measurements: Metatarsal Heads;Ankle;10 cm;20 cm;30 cm Left Metatarsal Heads: 24.5cm Left Ankle: 25cm Left Lower Extremity 10cm: 29.5cm Left Lower Extremity 20cm: 42cm Left Lower Extremity 30cm: 44.5cm RLE Circumferential Measurements: Metatarsal Heads;Ankle;10 cm;20 cm;30 cm Right Metatarsal Heads: 24cm Right Ankle: 24.5cm Right Lower Extremity 10cm: 31cm Right Lower Extremity 20cm: 46cm Right Lower Extremity 30cm: 46cm Sensation Sensation: Right Lower Extremity;Left Lower Extremity Right Lower Extremity Sensation: Light Touch RLE Light Touch: Intact Left Lower Extremity Sensation: Light Touch LLE Light Touch: Intact Circulation Pulses: Right Dorsalis Pedis;Left Dorsalis Pedis Right Dorsalis Pedis Pulse: (unable to palpate due to lymphedema; present via doppler) Left Dorsalis Pedis Pulse: (unable to palpate due to lymphedema; present via doppler) Capillary Refill: Right Lower Extremity;Left Lower Extremity Right Lower Extremity Capillary Refill: Intact Left Lower Extremity Capillary Refill: Intact See Clinical Documentation report for Skin Documentation. Current Functional Mobility Assist Level Additional Information Rolling Contact Guard Assistance Supine to Sit Contact Guard Assistance (using bed rail) Sit to Supine Moderate Assistance (BLE) Scooting Contact Guard Assistance Sit to Stand Moderate Assistance ( x 2) Stand to Sit Moderate Assistance (x 2) Bed to Chair Maximal Assistance (and moderate assist) Toilet/Commode Gait Moderate Assistance Gait Device: Wheeled Walker;With Wheelchair Follow Gait Distance (feet): 3', 4' x 2, 8' General Gait Deviations: Delmy decreased;Lateral sway increased;Wide base of support;Step length decreased;Non-functional gait speed Balance: Static Sitting;Dynamic Sitting;Static Standing;Dynamic Standing Static Sitting Balance: Stand By Assistance Dynamic Sitting Balance: Contact Guard Assistance Static Standing Balance: Moderate Assistance ( x2 initially then moderate assist of 1) Dynamic Standing Balance: Moderate Assistance (o) Please see discipline specific clinical documentation flowsheet for complete details for this therapy evaluation/treatment. SIGNATURE: Tamiko Son PT PATIENT NAME: Paloma Cannon DATE: November 16, 2017 TIME: 2:06 PM PAGER/CONTACT #: [phone] THERAPY NT Observed: 11/16/2017 Status: COMPLETED Source: [place] 1:37 PM [facility] [place] REPOSITORY HNO ID: [id number] Author: Zahra Burks (Go-L) Service: Occupational Therapy Author Type: Weigh And Charge Worker Type: Therapy (PT/OT/Speech/Resp) Filed: 11/16/2017 1:44 PM Note Text: Attestation signed by Yue Uriostegui at 11/16/2017 3:13 PM I reviewed and agree with the documentation corresponding to this therapy visit. SIGNATURE: Yue Uriostegui OTR/L DATE: November 16, 2017 TIME: 3:13 PM Occupational Therapy Treatment SERVICE DATE: 11/16/2017 SERVICE TIME: 1141 to 1234 ROOM: [place] [address] Recommended Discharge Disposition: Acute Rehab Justification For Post Acute Needs: Anticipate patient will tolerate 3 hours of daily therapy at the time of admission to post-acute setting;Anticipated community discharge;Cognition intact;Good family support;Good premorbid functional status;Good sitting tolerance;Medically complex;Motivated;Willing to participate;Anticipate that patient will require daily (5x/wk) skilled therapy in a post-acute facility setting at the time of acute hospital discharge Anticipated Discharge Needs: Undetermined OT Recommendations to Nursing: ADL?s in chair;Bedside Commode for Toileting;With assist of 2 people Equipment: (TBD) OT 6 Clicks Score: 17 Precautions/Activity Restrictions: Fall Risk;Lines/Tubes/Drains ASSESSMENT: Pt would benefit from further skilled services to improve strength, endurance, functional ROM, and safety needed for greater independence and safety with I/ADLs. Pt presented alert throughout session and demonstrated greater activity tolerance this session. Monitored vitals throughout. Post session, pt supine with all needs in reach. Patient Disposition at Start of Session: Other: See Comment (EOB) Patient Disposition at End of Session: Supine in Bed Tolerated Full Session Occupational Therapy Problem List: Edema;Impaired Self Care;Decreased Activity Tolerance;Decreased Strength;Functional Mobility Impairment;Balance Impaired Patient /Caregiver Goals: Go Home Goals for Plan of Care: Able to perform HEP with: Modified Independent (PROGRESSING) Grooming with: Modified Independent (PROGRESSING) Upper Body Bathing with: Modified Independent Upper Body Dressing with: Modified Independent Lower Body Bathing with: Modified Independent Lower Body Dressing with: Modified Independent (PROGRESSING) Toilet Hygiene with: Modified Independent Toilet Transfer with: Modified Independent Tolerate (minutes of functional activity): (MET) Functional Activity with: Modified Independent (PROGRESSING) Demonstrate Positive Coping Strategies with: Modified Independent (PROGRESSING) Demonstrate Competence With Education with: Modified Independent Progress Toward Goals: Progressing as expected Rehab Potential: Excellent PLAN: Treatment Frequency (times per week): 2 (+ 2 PRN per week) Current admission Treatment Interventions: Education;Self Care / Home Management;Energy Conservation Training;Strengthening;Functional Mobility Training;Balance Training;Edema Management;Pain Management Plan of Care developed with: Patient TREATMENT INTERVENTIONS: Therapy Diagnosis: Decreased activities of daily living (ADL) Interventions Provided: Therapeutic Exercise (21362);Therapeutic Activity (00583);Self Nursing Home Management (18839) Therapeutic Exercise (73007) Treatment Minutes: 28 2 units Skilled Intervention(s): Instructed pt through bilateral upper extremity exercises to increase strength, endurance, and functional range of motion needed for improved tolerance with I/ADLs and functional mobility in prep for household distances. Provided cues for pursed lip breathing, pacing range of motion, and optimal alignment and recruitment. Pt completed the following exercises x10 reps, 1 set as follows. Utilized 2# and 3# weighted dowel jodi as follows. - shoulder flexion/extension, chest press (2 sets), elbow flexion/extension (2 sets), backwards shoulder rolls( 2 sets) , D1 flexion/extension, D2 flexion/extension. Therapeutic Activity (56230) Treatment Minutes: 10 1 unit Skilled Intervention(s): Educated on walker safety and proper hand placement during sit<>stand transfers. Pt required mod A for elevated surface and max A for standard surface. Educated on AR vs SNF and therapist d/c recommendations. Self Nursing Home Management (42442) Treatment Minutes: 15 1 unit Skilled Intervention(s): Instructed pt on safe toilet transfer using proper hand placement for safety. Provided mod-max assist for transfer with use of arm rest and FWW. Provided min A for balance and safety while seated during toileting. Facilitated completion of daxa/buttocks care with total assist while standing. Provided cues for repositioning for increased ease of daxa/buttock hygiene. Total A to julian/doff bilat socks. Total Timed Code Treatment Minutes: 53 Total Treatment Time (minutes): 53 FUNCTIONAL G CODE: OT 6 Clicks Score: 17 (11/16/17 1141) Self Care Current Status (G8987): CK (11/16/17 1141) Self Care Goal Status (G8988): CJ (11/16/17 1141) Based on clinical assessment and the score on the 6 Clicks Functional Assessment Tool, the G code and corresponding severity modifiers are documented above. 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 Entry To Home: No Stairs Number Of Stairs To Bed/Bath: 0 Tub/Shower Type: walk in shower Equipment Owned: Commode-Raised;Grab Bars-Shower;Grab Bars-Toilet;Shower Chair;Home Oxygen Prior Functional Level: Required Assistance Assistance Required With: Cleaning;Laundry;Meals;Shopping;Transportation Prior Wound Care: Other: See Comment (unable to don compression stockings (I)) OBJECTIVE: Orientation Deficits: Other: See Comment (Improved orientation to self and situation. NA time/day) Responsiveness: Alert Follows Commands: 3-step Commands;Cueing Needed Cueing to Follow Commands: Minimum Psychosocial Deficit: depressed, anxious CURRENT FUNCTIONAL STATUS: Current Activities of Daily Living Assist Level Feeding Set Up Grooming Set Up Bathing Upper Body Minimal Assistance Bathing Lower Body Moderate Assistance Dressing Upper Body Minimal Assistance Dressing Lower Body Total Assistance Toileting Moderate Assistance Instrumental Activities of Daily Living Assist Level Meal/Beverage Prep Light Cleaning Laundry Medication Management with Strategies Supervision Functional Mobility Assist Level Rolling Minimal Assistance Supine to Sit Minimal Assistance Sit to Supine Minimal Assistance Scooting Minimal Assistance Sit to Stand Maximal Assistance Stand to Sit Moderate Assistance Bed to Chair Other: See Comment (NA) Stand Pivot Wheeled Walker Toilet/Commode Maximal Assistance Functional Mobility Please see discipline specific clinical documentation flowsheet for complete details for this therapy evaluation/treatment. SIGNATURE: ELROY Perez PATIENT NAME: Paloma Cannon DATE: November 16, 2017 TIME: 1:37 PM PAGER: [phone] CBC Collected: 11/16/2017 Status: F Source: [place] 5:24 AM [facility] REPOS[facility]ORY TYPE CODE TESTS RESULT OUT OF REFERENCE UNITS RANGE LAB WBC 3.70-11.00 k/uL Low WBC 3.59 LAB RBC 3.90-5.20 m/uL Low RBC 3.27 LAB HGB 11.5-15.5 g/dL Low Hemoglobin 10.7 LAB HCT 36.0-46.0 % Low Hematocrit 33.3 LAB MCV 80.0-100.0 fL MCV High 101.8 LAB MCH 26.0-34.0 pG MCH 32.7 LAB MCHC 30.5-36.0 g/dL MCHC 32.1 LAB RDWCV 11.5-15.0 % RDW-CV High 24.6 LAB PLTCT 150-400 k/uL Low Platelet Count 46 Result Comment: Result checked and verified No clot detected. LAB MPV 9.0-12.7 fL MPV <<DO NOT REPORT>> LAB ABSNUC <0.01 k/uL 0.02 High Absolute nRBC Performed By: #### CBC, MG1, PHOS, BMP #### [facility] [address] [place] [address] MAGNESIUM Collected: 11/16/2017 Status: F Source: [place] 5:24 AM [facility] REPOSITORY TYPE CODE TESTS RESULT OUT OF REFERENCE UNITS RANGE LAB MG 1.7-2.3 mg/dL Magnesium 2.0 Performed By: #### CBC, MG1, PHOS, BMP #### [facility] [address] [place] [address] PHOSPHORUS Collected: 11/16/2017 Status: F Source: [place] 5:24 AM [facility] REPOSITORY TYPE CODE TESTS RESULT OUT OF REFERENCE UNITS RANGE LAB PHOS 2.7-4.8 mg/dL Phosphorus 4.4 Performed By: #### CBC, MG1, PHOS, BMP #### [facility] [address] [place] [address] BASIC METABOLIC PANL Collected: 11/16/2017 Status: F Source: [place] 5:24 AM [facility] REPOSITORY TYPE CODE TESTS RESULT OUT OF REFERENCE UNITS RANGE LAB GLU 74-99 mg/dL Low Glucose 73 Result Comment: The [place] [employer] (ADA) provides guidance for cutoff values for fasting glucose and random glucose. The ADA defines fasting as no caloric intake for at least 8 hours. Fas ting plasma glucose results between 100 to 125 mg/dL indicate increased risk for diabetes (prediabetes). Fasting plasma glucose results greater than or equal to 126 mg/dL meet the criteria for diagnosis of diabetes. In the absence of unequivocal hyperglycemia, results should be confirmed by repeat testing. In a patient with classic symptoms of hyperglycemia or hyperglycemic crisis, random plasma glucose results greater than or equal to 200 mg/dL meet the criteria for diagnosis of diabetes. Reference: Standards of Medical Care in Diabetes 2016, [place] [employer]. Diabetes Care. 2016.39(Suppl 1). LAB BUN 7-21 mg/dL BUN High 49 LAB CRET 0.58-0.96 mg/dL Creatinine High 1.22 LAB NA 136-144 mmol/L Sodium 140 LAB K 3.7-5.1 mmol/L Potassium 3.8 LAB CL 97-105 mmol/L Chloride 99 LAB CO2 22-30 mmol/L CO2 26 LAB AGAP 9-18 mmol/L Anion Gap 15 LAB CA 8.5-10.2 mg/dL Calcium, Total 8.9 LAB GFRAA eGFR- Amer. >60 LAB GFRNAA . eGFR-All Other Races 52 Result Comment: eGFR (Estimated GFR) Units of measure: mL/min/1.73 meters squared eGFR is derived from the reexpressed MDRD Study equation using the following parameters: serum creatinine, age, gender and race. The creatinine assay has been calibrated to be traceable to IDMS. An eGFR <60 mL/min/1.73m2 for >3 months is consistent with chronic kidney disease. Refer to KDOQI guidelines for clinical interpretation. In patients with unstable renal function, e.g. those with acute kidney injury, the eGFR may not accurately reflect actual GFR. Performed By: #### CBC, MG1, PHOS, BMP #### [facility] [address] [place], [place] [address] TYPE AND SCREEN Collected: 11/16/2017 Status: F Source: [place] 5:24 AM [facility] REPOSITORY TYPE CODE TESTS RESULT OUT OF REFERENCE UNITS RANGE LAB %ABR B ABO/RH(D) POSITIVE LAB % Antibody POS Screen Performed By: #### TSCR #### [facility] [address] [place], [place] [address] CONSULT PROG Observed: 11/15/2017 Status: COMPLETED Source: [place] 4:47 PM [facility] REPOSITORY HNO ID: [id number] Author: Luz Maria Wolfe) Service: Hematology/Oncology Author Type: Physician Type: Consult Progress Note Filed: 11/15/2017 5:12 PM Note Text: CONSULT PROGRESS NOTE SERVICE DATE: 11/15/2017 CONSULTING SERVICE: He,atology Subjective INTERVAL HPI: Pt was given Plts overnight and did increment. MARILEE, reports doing clinically well, no bleeding Current hospital medications: [START ON 11/16/2017] NIFEdipine ER (PROCARDIA XL) tab(s) 90 mg 90 mg ORAL DAILY HYDROmorphone 0.3 mg in NaCl 0.9% (DILAUDID) 0.3 mg INTRAVENOUS q 4 H PRN torsemide 20 mg tab(s) (DEMADEX) 20 mg ORAL DAILY 0.9% NaCl 10 mL 10 mL INTRAVENOUS q 12 H 0.9% NaCl 20 mL 20 mL INTRAVENOUS PRN sodium citrate 4% 3-6 mL catheter lock 3-6 mL INTRALUMINAL APHERESIS PRN gabapentin 300 mg cap(s) (NEURONTIN) 300 mg ORAL q 8 H albuterol 2.5 mg /3 mL (0.083 %) 2.5 mg (PROVENTIL) 2.5 mg INHALATION q 4 WEEKS pentamidine 300 mg nebulizer solution (NEBUPENT) 300 mg INHALATION q 4 WEEKS carvedilol 25 mg tab(s) (COREG) 25 mg ORAL/FEEDING TUBE BID w MEALS oxyCODONE IR 5-10 mg tab(s) (ROXICODONE) 5-10 mg ORAL/FEEDING TUBE q 4 H PRN predniSONE (DELTASONE) tab(s) 60 mg 60 mg ORAL/FEEDING TUBE DAILY lidocaine 5 % 1 Patch (LIDODERM) 1 Patch TRANSDERMAL DAILY lidocaine patch - REMOVE OTHER AT BEDTIME lidocaine - VERIFY PATCH OTHER q 8 H polyethylene glycol 3350 17 g packet (MIRALAX, GLYCOLAX) 17 g ORAL/FEEDING TUBE DAILY docusate sodium 100 mg cap(s) (COLACE) 100 mg ORAL BID senna 8.6 mg tab(s) (SENOKOT) 8.6 mg ORAL/FEEDING TUBE BID pantoprazole DR 40 mg tab(s) (PROTONIX) 40 mg ORAL DAILY (6 AM) ondansetron 8 mg tab(s) (ZOFRAN) 8 mg ORAL q 8 H PRN diphenhydrAMINE 50 mg (BENADRYL) 50 mg ORAL/FEEDING TUBE q 6 H PRN hydrocortisone sodium succinate (PF) 100 mg injection (Solu- CORTEF) 100 mg INTRAVENOUS q 4 H PRN diphenhydrAMINE 50 mg injection (BENADRYL) 50 mg INTRAVENOUS q 4 H PRN prochlorperazine 5 mg injection (COMPAZINE) 5 mg INTRAVENOUS q 6 H PRN dextrose 50% in water 25-50 mL syringe 12.5-25 g INTRAVENOUS PRN dextrose 40 % 15 g 15 g ORAL PRN glucagon 1 mg injection (GLUCAGEN) 1 mg SUBCUTANEOUS PRN acetaminophen 650 mg tab(s) (TYLENOL) 650 mg ORAL/FEEDING TUBE q 6 H PRN acetaminophen 650 mg suppository (TYLENOL) 650 mg RECTAL q 6 H PRN Objective PHYSICAL EXAM: BP 146/72 Pulse 80 Temp (Src) 97.6 (Oral) Resp 18 Ht 5' 3 (1.60m) Wt 218 lb 4.1 oz (99.0kg) SpO2 93% BMI 38.67 kg/(m2). General: Alert, NAD. 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 Recent admission 10/13/17-10/23/17 for hemoptysis and SOB, requiring intubation, was in MICU for management of DAH. readmitted to MICU again for ?extensive left retroperitoneal hemorrhage?s/p IR guided intervention (initially on 10/23 at [facility] and 10/26 here at [facility]. ? # Antiphospholipid antibody syndrome -recent?home therapy : Prednisone 60 mg ( home dose 5 mg), Cytoxan 75 mg ( home dose 150 mg), pheresis QOW ?-continue with current dose of steroids -Cytoxan stopped on 11/09 given persistent thrombocytopenia as this might he causing myelosuppression ?-given N plate 2mcg/kg sq x1 on 11/09 and another dose of 3 mcg/kg on 11/13. ?-continue to trend plt level ?-Agree with changing Bacrin to Pentam Inh ?-AC is on hold due to recent bleeding and persistent thrombocytopenia. ?-Pheresis done on 11/13, will need in two weeks -will consider starting bivalriudin and bridging to coumadin once plts level is >50K consistently or plt level has stabilized. ? ?#Extensive left retroperitoneal hemorrhage -likely secondary to anticoagulant. Its an unfortunate case, she needs an anticoagulation for APS but bleeding episodes prohibits -sp IR intevention on 10/23 and 10/26? -Hemoglobin has been stable, would decrease transfusion threshold for platelet if PLT count <20 K ? #Abnormal hemolysis labs - with elevated LD, elevated retic, and an undetectable hapto. Hemoglobin has been stable. - ?Direct [place]omb is negative -ADAMTS 13 activity resulted at 56 % speaking against TTP -Abnormal hemolysis labs likely?related to resolving hematoma. ? Case discussed with Dr. Aiden Willett MD Heme/Onc Fellow Addendum: I have repeated the pertinent features of the history and examination and reviewed appropriate available diagnostics in this patient. I am in agreement with the plan as stated above. I discussed the above plan with the patient and I have answered questions asked by the patient. Pt has improved greatly overall except for thrombocytopenia. Suspect immune mechanism and she has received 2 doses of N plate in recent days. We are hopeful her platelet count will stabilize here in next 1-2 days. Once stable and deemed adequate for anticoagulation, we can discuss with vasc medicine team starting bivalirudin with bridge to coumadin Luz Maria Wolfe MD November 15, 2017 5:11 PM CASE MANAGEM Observed: 11/15/2017 Status: COMPLETED Source: [place] 3:20 PM [facility] REPOSITORY HNO ID: [id number] Author: Jacinta Olmedo (Rn), RN Service: Care Management Author Type: Registered Nurse Type: Care Mgt Progress Note Filed: 11/15/2017 3:22 PM Note Text: CARE MANAGEMENT PROGRESS NOTE SERVICE DATE: 11/15/2017 SERVICE TIME: 3:20 PM LOS: 21 days Needs Prior to Discharge: Accepting Facility;Bed Availability;Insurance Authorization;Discharge Transportation Per primary team, earliest dc next week Awaiting PMANDR.Per Gissell, [facility] [place] Liason (p) [phone] unable to accept. Referal sent to [facility] (via [facility] as central number (p) [phone] and f) [phone]) for review at direction of [place] liason (pt agreeable) IF accepted, [facility] would request pt to receive aphersis in house prior to dc. Primary team informed and will try to accommodate. Per , at dc pt will need apheresis q 2 weeks indefinitely and close daily lab montoring of blood status for possible need for transfusion . Current on 2LO2/nc, has home O2 2L 02 via [facility]. Yang MAZA is Elsa Matos (p) [phone]- updated on dc plan yestereday. CM to continue to follow SIGNATURE: Jacinta Olmedo RN PATIENT NAME: Paloma Cannon DATE: November 15, 2017 TIME: 3:20 PM PAGER/CONTACT #: [phone] NURSING PROG Observed: 11/15/2017 Status: COMPLETED Source: [place] 2:18 PM [facility] REPOSITORY HNO ID: [id number] Author: Zoila Cullen (Rn), RN Service: Nursing Author Type: Registered Nurse Type: Nursing Progress Note Filed: 11/15/2017 2:19 PM Note Text: Nursing Progress Note Patient Name: Paloma Cannon Patient Location: H080 015/H080-16 Daily Note: Pt AANDOx3. VSS. Pt c/o back pain, treated per sep. Pt up with two assist and walker. Pt down to cafeteria with and in wheelchair. Skin care protocol in place. Fall/safety precautions in place. This note was completed by: Zoila Cullen RN PROGRESS Observed: 11/15/2017 Status: COMPLETED Source: [place] 2:04 PM [facility] REPOSITORY HNO ID: [id number] Author: Ros Wayne Service: General Internal Medicine Author Type: Physician Type: Progress Notes Filed: 11/15/2017 10:10 PM Note Text: RAF Terry PROGRESS NOTE For questions regarding this patient today please page [phone] After 5 pm on weekdays and 3pm on weekends and holidays please page documentation clerk pager [phone] SERVICE DATE: 11/15/2017 SERVICE TIME: 2:04 PM INTERVAL HISTORY: - No events overnight - BP [phone], HR 70-100, on 2L NC - Uoutput 1.5L yesterday; I/Onet: -800cc - Using oxycodone and dilaudid less often. - less crepitations on exam. Kidney function stable. - removed zuniga catheter; needs assistance to bedside commode Labs: Hgb: 9.3-->9.5-->9.7-->9.0-->10.1-->9.8-->9.5-->9.6-->10-->10.1-->10.6-->10.5 Creatinine: 1.10-->1.40-->1.19-->1.29-->0.96-->1.1-->0.96-->0.88-->1.06-->1.08 Plt: 40-->34-->28-->36-->29-->25-1u plt->34-->28-1u plt->34-->40-->26-1uplat->37-->43 PLAN FOR TODAY - c/w with torsemide 20 mg PO daily - Appreciate hematology recommendations - PMANDR consult - contact IR re: sutures preventing biopatch from proper placement - increase nifedipine dose tomorrow to 90mg qday - vitamin B12 and MMA level - nutrition screen MEDICATIONS: Current hospital medications: [START ON 11/16/2017] NIFEdipine ER (PROCARDIA XL) tab(s) 90 mg 90 mg ORAL DAILY HYDROmorphone 0.3 mg in NaCl 0.9% (DILAUDID) 0.3 mg INTRAVENOUS q 4 H PRN torsemide 20 mg tab(s) (DEMADEX) 20 mg ORAL DAILY 0.9% NaCl 10 mL 10 mL INTRAVENOUS q 12 H 0.9% NaCl 20 mL 20 mL INTRAVENOUS PRN sodium citrate 4% 3-6 mL catheter lock 3-6 mL INTRALUMINAL APHERESIS PRN gabapentin 300 mg cap(s) (NEURONTIN) 300 mg ORAL q 8 H albuterol 2.5 mg /3 mL (0.083 %) 2.5 mg (PROVENTIL) 2.5 mg INHALATION q 4 WEEKS pentamidine 300 mg nebulizer solution (NEBUPENT) 300 mg INHALATION q 4 WEEKS carvedilol 25 mg tab(s) (COREG) 25 mg ORAL/FEEDING TUBE BID w MEALS oxyCODONE IR 5-10 mg tab(s) (ROXICODONE) 5-10 mg ORAL/FEEDING TUBE q 4 H PRN predniSONE (DELTASONE) tab(s) 60 mg 60 mg ORAL/FEEDING TUBE DAILY lidocaine 5 % 1 Patch (LIDODERM) 1 Patch TRANSDERMAL DAILY lidocaine patch - REMOVE OTHER AT BEDTIME lidocaine - VERIFY PATCH OTHER q 8 H polyethylene glycol 3350 17 g packet (MIRALAX, GLYCOLAX) 17 g ORAL/FEEDING TUBE DAILY docusate sodium 100 mg cap(s) (COLACE) 100 mg ORAL BID senna 8.6 mg tab(s) (SENOKOT) 8.6 mg ORAL/FEEDING TUBE BID pantoprazole DR 40 mg tab(s) (PROTONIX) 40 mg ORAL DAILY (6 AM) ondansetron 8 mg tab(s) (ZOFRAN) 8 mg ORAL q 8 H PRN diphenhydrAMINE 50 mg (BENADRYL) 50 mg ORAL/FEEDING TUBE q 6 H PRN hydrocortisone sodium succinate (PF) 100 mg injection (Solu- CORTEF) 100 mg INTRAVENOUS q 4 H PRN diphenhydrAMINE 50 mg injection (BENADRYL) 50 mg INTRAVENOUS q 4 H PRN prochlorperazine 5 mg injection (COMPAZINE) 5 mg INTRAVENOUS q 6 H PRN dextrose 50% in water 25-50 mL syringe 12.5-25 g INTRAVENOUS PRN dextrose 40 % 15 g 15 g ORAL PRN glucagon 1 mg injection (GLUCAGEN) 1 mg SUBCUTANEOUS PRN acetaminophen 650 mg tab(s) (TYLENOL) 650 mg ORAL/FEEDING TUBE q 6 H PRN acetaminophen 650 mg suppository (TYLENOL) 650 mg RECTAL q 6 H PRN HOME MEDICATIONS: cyclophosphamide (CYTOXAN) 50 mg capsule Take 150 mg by mouth once daily. diphenhydrAMINE (BENADRYL) 50 mg capsule Take 1 capsule by mouth every 6 hours as needed for Itching/Rash. gabapentin (NEURONTIN) 100 mg capsule Take 1 capsule by mouth three times daily for 7 days. ondansetron (ZOFRAN, HYDROCHLORIDE,) 8 mg tablet Take 8 mg by mouth every 8 hours as needed for Nausea/Vomiting. pantoprazole DR (PROTONIX) 40 mg tablet Take 40 mg by mouth daily at bedtime. sulfamethoxazole-trimethoprim (BACTRIM DS) 800-160 mg per tablet Take 1 tablet by mouth every Monday,Monday,Monday. fluticasone (FLONASE) 50 mcg/actuation nasal spray Use 1-2 Sprays in each nostril once daily as needed for Cold/Allergy Symptoms (starting in allergy season). senna 8.6 mg tab Take 1 tablet by mouth twice daily as needed. PHYSICAL EXAM: VITAL SIGNS Patient Vitals for the past 24 hrs: BP Temp Temp src Pulse Resp SpO2 Weight 11/15/17 1347 147/74 36.4 ?C (97.6 ?F) Oral 85 18 93 % - 11/15/17 0909 154/78 36.7 ?C (98.1 ?F) Oral 88 18 95 % - 11/15/17 0742 163/81 - - 93 - - - 11/15/17 0605 176/97 36.4 ?C (97.6 ?F) Oral 100 18 94 % 99 kg (218 lb 4.1 oz) 11/15/17 0200 157/83 36.8 ?C (98.3 ?F) Oral 93 18 97 % - 11/14/17 2114 154/85 36.6 ?C (97.9 ?F) Oral 70 18 96 % - 11/14/17 1713 145/77 36.4 ?C (97.6 ?F) Oral 77 18 94 % - 11/14/17 1652 150/70 - - 82 - - - BP 147/74 Pulse 85 Temp 36.4 ?C (97.6 ?F) (Oral) Resp 18 Ht 160 cm (5' 3) Wt 99 kg (218 lb 4.1 oz) SpO2 93% BMI 38.66 kg/m? Temp (24hrs), Av.6 ?C (97.9 ?F), Min:36.4 ?C (97.6 ?F), Max:36.8 ?C (98.3 ?F) INTAKE/OUTPUT Intake/Output Summary (Last 24 hours) at 11/15/17 1433 Last data filed at 11/15/17 1400 Gross per 24 hour Intake 1050.2 ml Output 440 ml Net 610.2 ml General: Alert, oriented, cooperative.?In no acute distress. 2L NC Skin:?Chronic skin changes on bilateral LE below the knee?due to lymphedema HEENT: EOM. Pupils equal, round and reactive Cardiovascular: RRR. No murmur Lungs: Less crepitations at the bases than prior Abdomen: Soft, non-tender, no masses or organomegaly Extremities: 2+ peripheral edema but improving,?+2 DP pulses bilaterally Neurological: Moving all extremities freely LAB DATA: Component Latest Ref Rng AND Units 11/14/2017 11/14/2017 11/15/2017 4:26 AM 1:15 PM Glucose 74 - 99 mg/dL 79 74 BUN 7 - 21 mg/dL 46 (H) 52 (H) Creatinine 0.58 - 0.96 mg/dL 1.06 (H) 1.08 (H) Sodium 136 - 144 mmol/L 141 142 Potassium 3.7 - 5.1 mmol/L 3.7 3.8 Chloride 97 - 105 mmol/L 101 101 CO2 22 - 30 mmol/L 25 26 Anion Gap 9 - 18 mmol/L 15 15 Calcium 8.5 - 10.2 mg/dL 8.7 8.9 eGFR- >60 >60 eGFR-All Other Races . >60 >60 WBC 3.70 - 11.00 k/uL 4.40 5.43 4.26 RBC 3.90 - 5.20 m/uL 3.12 (L) 3.19 (L) 3.23 (L) Hemoglobin 11.5 - 15.5 g/dL 10.6 (L) 10.7 (L) 10.5 (L) Hematocrit 36.0 - 46.0 % 32.3 (L) 33.2 (L) 32.6 (L) MCV 80.0 - 100.0 fL 103.5 (H) 104.1 (H) 100.9 (H) MCH 26.0 - 34.0 pG 34.0 33.5 32.5 MCHC 30.5 - 36.0 g/dL 32.8 32.2 32.2 RDW-CV 11.5 - 15.0 % 25.6 (H) 25.3 (H) 24.8 (H) Platelet Count 150 - 400 k/uL 26 (L) 37 (L) 43 (L) MPV 9.0 - 12.7 fL <<DO NOT REPORT>> <<DO NOT REPORT>> <<DO NOT REPORT>> Absolute nRBC <0.01 k/uL <0.01 0.02 (H) 0.01 (H) Magnesium 1.7 - 2.3 mg/dL 1.8 2.1 Phosphorus 2.7 - 4.8 mg/dL 4.0 3.9 ASSESSMENT AND PLAN: Active Hospital Problems Diagnosis - Retroperitoneal hematoma Retroperitoneal bleed: s/p 7 units PRBCs s/p IR emobolization of left L3 artery at [facility] on 10/23 IR embolization of left L2 and L3 arteries on 10/26 CT abd/pel 10/31: RP bleed stable when compared to previous imaging from 10/27 LDH 1730, haptoglobin <10, Tbili 1.3- concern for hemolysis as well. Per heme, thrombocytopenia and anemia likely related to cytoxan with stressed BM Cytoxan reduced to 75 mg daily Plan: Continue to monitor HANDH and transfuse PRBC if Hb<7 or symptomatic Continue to hold Anticoagulation until approved by Vascular medicine- initially recommended holding AC for at least 14 days since last bleeding. 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 Has received stenting of IVC and iliacs along with endograft of IVC. 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 C/B extensive RP bleed s/p L2, L3 embolization. N-plate 11/09, 11/13 Received Apheresis on 11/03, 11/13 (heme following); patient is on [id number] (Mondays) schedule outpatient Plan: Holding Cytoxan 75 mg in setting of worsening thrombocytopenia Continue prednisone 60 mg with bactrim ppx Appreciate hematology and VM recs Plan is to start bivalrudin trial once platelets stabilize and bridge to coumadin - CAPRICE (acute kidney injury) (HCC) CAPRICE on CKD III, 2/2 contrast, now requiring dialysis First HD at [facility] on 10/25 with tunneled dialysis catheter placement followed by [address] Abdomen/pelvis from 10/26 showed occlusion of B/L renal veins, outflow not appreciated- could be attributing to CAPRICE and CKD Bladder scan Plan: Nephrology following- appreciate recommendations Daily BMPs to watch K, Na and phosphorus levels Renal dosing of medication Avoid excess fluids and nephrotoxic drugs - HTN (hypertension) Mildly decreased systolic function, diastolic function indeterminate on 10/13/17 ECHO. 10/28: Run of SBP in 200s overnight (likely d/t pain), given hydralazine however still consistently in 170s-180s 10/29: Still hypertensive, required 4 doses of hydralazine overnight Switched Amlodipine 10 mg to nifedipine 30mg on 11/10, and increased Coreg from 6.25 to 25 mg BID Plan: Increase nifedipine to 90mg 11/16 and keeping Coreg at current dosing, can up titrate coreg if tolerating well (HR currently 80-100) Can consider adding PRN hydralazine for SBP>180 mm Hg, - Diffuse pulmonary alveolar hemorrhage Currently stable, no new episodes Has had 6 admissions recently for acute respiratory failure requiring mechanical ventilation Cytoxan was reduced from 150 to 75 mg due to concern for BM toxicity; renally dosed Plan: Continue to monitor respiratory status Continue oxygen therapy at 2L NC Holding Cytoxan in setting of worsening thrombocytopenia Continue Prednisone 60 mg daily Switched bactrim to pentamidine for ppx on 11/12 Will reach out to outpatient provider regarding switch to pentamidine from bactrim, per heme recs - Moraxella catarrhalis pneumonia (HCC) Had respiratory cultures growing Moraxella catarrhalis Received ceftriaxone 10/27-11/03- 7 days therapy WBC trended down from 21 K to 12K. Currently at baseline O2 requirement but still slightly tachypneic Completed course of ceftriaxone. Plan: Continue to monitor respiratory status closely BPH per RT Incentive spirometry - Peripheral neuropathy - History of heparin-induced thrombocytopenia Avoid all heparin products. - Weakness of left leg 11/02 Left leg weakness/parasthesia Likely related to lumbar nerve compression from large retroperitoneal hematoma Neurology was following, recommended no further intervention On gabapentin renally dosed. - Right groin pain 10/27: C/o acute pain this morning, access site for embolization at [facility], no erythema or induration appreciated on exam, exquisitely TTP Groin study showed no signs of PSA, known AV fistula visualized with retrograde flow, vascular med aware- no further recs 10/28: pain less severe, no physical exam findings Repeat Leg DVT shows no pseudoaneurysm Likely due to nerve compression/RP hematoma causing compressive symtpoms S/p R groin drain placed at [facility] on 10/24 s/p L groin drain placed at [facility] during embolization on 10/26 Plan: - Pain management-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 SIGNATURE: Olga Reyez MD PATIENT NAME: Paloma Cannon DATE: November 15, 2017 TIME: 2:04 PM PAGER: [phone] RAF Terry ATTENDING NOTE: Chart reviewed, patient seen and examined on 11/14 at 10am and fernandes elements of the history and physical were discussed in detail and confirmed with the resident team. I have reviewed the above note, examined the patient and agree with the documented findings and plan of care as listed in Dr Reyez's note. Any addendums above are in bold underline text. Assessment: s/p L RP bleed on 10/23/17 with embolization and coils to Left L2 + L3 arteries: s/p numerous RBC transfusions + Hgb has stabilized Persistent thrombocytopenia despite mult platelet tranfusions + ENDPLATE last week + 11/13+ DC of Cytoxan (11/11) + Bactrim 11/12).. platelet count today is 43K, (s/p 1 unit of platelets on 11/14) + long hx of Catastrophic APS as noted above, she remains off AC due to persistent thrombocytopenia: (Hx of HIT) Resolved Moraxella catarrhalis HCAP ( Ceftriaxone 10/28 to 11/03) Remains fluid overloaded but mainly in 3rd space areas.. 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 ? Plan: Same meds for now (continue Demadex 20mg qAM) Last PLEX was given on 11/13 and then plan for q 2weeks.. Rehab center is requesting that PLEX be done prior to transfer to their center Per HEME: - transfuse for platelet count below 20K - begin Bival infusion when platelry count is > 50K (+ resume Coumadin soon after) + Continue to encourage activity Ros Wayne MD FACP Attending, pager [phone] CONSULT Observed: 11/15/2017 Status: COMPLETED Source: [place] 1:07 PM [facility] REPOSITORY O ID: [id number] Author: Viraj Starr Service: Physical Medicine AND Rehabilitation Author Type: Physician Type: Consults Filed: 11/15/2017 4:35 PM Note Text: HOSPITAL INITIAL CONSULT: PMANDR SERVICE DATE: 11/15/2017 SERVICE TIME: 415pm REASON FOR CONSULTATION: assessment of rehab service needs Subjective PATIENT'S HOME ADDRESS: [address] [place] [id number] HISTORY: Paloma Cannon is a 27 year old female whose current [facility] admission dates to 10/25/2017. History notes that she was admitted on that date from outside hospital. Ms. Cannon is being seen at the request of Dr. Wayne, the acute hospital physician of record. She carries the rehabilitation diagnosis of debility. 27 year old female with a PMH Anti-phospholipid syndrome complicated by DVT/PE (on intermediate card tender anticoagulation, recently changed to fondaparinux from coumadin on 10/13 admission), HIT, peripheral neuropathy,diffuse alveolar hemorrhage (during admission 10/13 to 10/23/17), CKD 3, heart failure (EF = 47 ? 5%), htn who presented to OSH with severe stabbing left-sided abdominal pain radiating to left leg. CT abdomen showed extensive left retroperitoneal hemorrhage with mass effect to the left kidney, and less extensive hemorrhage along the surface of the spleen and along the mesentery. She was transferred to [facility] for further stabilization. She underwent urgent Left Retroperitoneal angiogram and embolization which incidentally found large lower extremity fistula (vascular surgery consulted and recommended no intervention at this time). Vascular medicine recommended holding anticoagulation for at least 14 days since last bleed. Eventual plan is to restart bivalrudin bridge to coumadin. Cytoxan has been held due to current thrombocytopenia. Hospitalization complicated by blood loss anemia (found to have hgb 4.8 on 10/23),Moraxella catarrhalis pneumonia (completed ceftriaxone), oliguric CAPRICE: contrast induced nephropathy, fluid overload, needed dialysis twice, infection (Respiratory cx: many gram neg diplococci, moderate yeast, few gram positive bacilli, Blood culture 10/23: NGTD), acute pain requiring opitates, left groin drainage (dark yellow drainage into zuniga bag). Apheresis will continue every 2 weeks (last 11/14) for antiphospholipid antibody syndrome. Prior to hospitalization, she relates a daily activity level that was fully independent at the community level with assistive devices-walker. She lives in home with which has 0 steps to enter and first floor setup. Her works but will be available at night. If needed she can have 24/7 assist from friends/family. Patient reports she is able to stand for 2-3 min with 2 person assist, walker, and gait belt Three to four times a day. PROJECTED/ ANTICIPATED MEDICATION MANAGEMENT: (Surrogate for cognition/executive/physical functioning) at discharge from this episode of care: will manage without help (may receive help picking up pills / delivery) ALLERGIES Allergen Reactions - Rhubarb Rash, Hives - Chlorhexidine Rash Patient has sensitivity to CHG gel impregnated dressing. Patient can tolerate a sorbaview dressing AND a CHG biopatch. - Heparin Other: See Comments Per patient history of HIT - was on angiomax however then took l fondaparinux for bridging to coumadin. - Iv Contrast [Iodine] Other: See Comments shuts kidneys down per patient - Rituximab Other: See Comments Elevated cardiac enzymes Current hospital medications: [START ON 11/16/2017] NIFEdipine ER (PROCARDIA XL) tab(s) 90 mg 90 mg ORAL DAILY HYDROmorphone 0.3 mg in NaCl 0.9% (DILAUDID) 0.3 mg INTRAVENOUS q 4 H PRN torsemide 20 mg tab(s) (DEMADEX) 20 mg ORAL DAILY 0.9% NaCl 10 mL 10 mL INTRAVENOUS q 12 H 0.9% NaCl 20 mL 20 mL INTRAVENOUS PRN sodium citrate 4% 3-6 mL catheter lock 3-6 mL INTRALUMINAL APHERESIS PRN gabapentin 300 mg cap(s) (NEURONTIN) 300 mg ORAL q 8 H albuterol 2.5 mg /3 mL (0.083 %) 2.5 mg (PROVENTIL) 2.5 mg INHALATION q 4 WEEKS pentamidine 300 mg nebulizer solution (NEBUPENT) 300 mg INHALATION q 4 WEEKS carvedilol 25 mg tab(s) (COREG) 25 mg ORAL/FEEDING TUBE BID w MEALS oxyCODONE IR 5-10 mg tab(s) (ROXICODONE) 5-10 mg ORAL/FEEDING TUBE q 4 H PRN predniSONE (DELTASONE) tab(s) 60 mg 60 mg ORAL/FEEDING TUBE DAILY lidocaine 5 % 1 Patch (LIDODERM) 1 Patch TRANSDERMAL DAILY lidocaine patch - REMOVE OTHER AT BEDTIME lidocaine - VERIFY PATCH OTHER q 8 H polyethylene glycol 3350 17 g packet (MIRALAX, GLYCOLAX) 17 g ORAL/FEEDING TUBE DAILY docusate sodium 100 mg cap(s) (COLACE) 100 mg ORAL BID senna 8.6 mg tab(s) (SENOKOT) 8.6 mg ORAL/FEEDING TUBE BID pantoprazole DR 40 mg tab(s) (PROTONIX) 40 mg ORAL DAILY (6 AM) ondansetron 8 mg tab(s) (ZOFRAN) 8 mg ORAL q 8 H PRN diphenhydrAMINE 50 mg (BENADRYL) 50 mg ORAL/FEEDING TUBE q 6 H PRN hydrocortisone sodium succinate (PF) 100 mg injection (Solu- CORTEF) 100 mg INTRAVENOUS q 4 H PRN diphenhydrAMINE 50 mg injection (BENADRYL) 50 mg INTRAVENOUS q 4 H PRN prochlorperazine 5 mg injection (COMPAZINE) 5 mg INTRAVENOUS q 6 H PRN dextrose 50% in water 25-50 mL syringe 12.5-25 g INTRAVENOUS PRN dextrose 40 % 15 g 15 g ORAL PRN glucagon 1 mg injection (GLUCAGEN) 1 mg SUBCUTANEOUS PRN acetaminophen 650 mg tab(s) (TYLENOL) 650 mg ORAL/FEEDING TUBE q 6 H PRN acetaminophen 650 mg suppository (TYLENOL) 650 mg RECTAL q 6 H PRN PAST MEDICAL HISTORY Diagnosis Date - (HFpEF) heart failure with preserved ejection fraction (HCC) 02/20/2016 HFpEF w last EF 50-55% On Torsemide, coreg, hydralazine and imdur at home No signs of acute exacerbation on admission Plan: -Continue home medications - Anasarca 11/29/2013 - Anemia 03/10/2015 Chronic microcytic anemia. 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 Thrombosis, and Diffuse Alveolar Hemorrhage. On Warfarin and PLEX (Twice Weekly)? Plan: -Warfarin 5mg qday-holding for planned EGD on 01/11 d/t supra therapeutic INR -Cont. PO Prednisone 10mg MWFS and 5mg TTS -Pantoprazole for GI PPx of Above -Apharesis was supposed to be yesterday, will contact plasmapheresis team on recommendations - Antiphospholipid syndrome (HCC) - Catastrophic Antiphospholipid antibody syndrome 11/09/2013 - Cholelithiasis 01/11/2017 Likely cause of recent pancreatitis. Plan: Per general surgery, no acute surgical intervention at this time. Will await results of EGD. If active gastritis, favor outpatient cholecystectomy. If no active gastritis on EGD, plan for cholecystectomy this admission. - CKD (chronic kidney disease) stage 3, GFR 30-59 ml/min 07/06/2016 Baseline SCr 1.5-1.7 Plan: -renally dose medications -avoid nephrotoxic agents - DVT (deep venous thrombosis) (HCC) - Elevated CA-125 11/30/2013 244 - Essential hypertension 10/08/2015 Stable on home medications Plan: -continue to monitor on home meds - 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 Bivalirudin to Warfarin bridging - HIT (heparin-induced thrombocytopenia) (HCC) - Nontoxic multinodular goiter - Obese - Obesity, Class III, BMI >= 40 (morbid obesity) E66.01 10/18/2016 - Peripheral neuropathy 04/14/2016 - Pulmonary HTN 04/03/2017 - Severe protein-calorie malnutrition (HCC) 12/29/2015 PAST SURGICAL HISTORY Procedure Laterality Date - PAST SURGICAL HISTORY OF 2012 IVC thrombectomy - PAST SURGICAL HISTORY OF 2012 b/l iliac v. 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 - PAST SURGICAL HISTORY OF Adenoidectomy - PICC LINE INSERT/CONSULT 11/29/2013 - PICC LINE INSERT/CONSULT 03/10/2015 - PICC LINE INSERT/CONSULT 02/20/2016 Social History Marital status: Spouse name: Years of education: Number of children: Occupational History Occupation 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 Social History Main Topics Smoking status: Never Smoker Smokeless tobacco: Never Used Alcohol use: No Drug use: No Sexual activity: Not Currently FAMILY HISTORY Problem Relation Age of Onset - Breast Cancer Mother spine BRCA neg - Ovarian cyst [OTHER] Mother - ovarian cyst [OTHER] Sister - Thyroid No Family History ACTIVE PROBLEM LIST Diffuse Pulmonary Alveolar Hemorrhage Pancytopenia (Hcc) Htn (Hypertension) Caprice (Acute Kidney Injury) (Hcc) Acute On Chronic Respiratory Failure With Hypoxia (Hcc) Abdominal Pain Severe Protein-Calorie Malnutrition (Hcc) History of Heparin-Induced Thrombocytopenia (Hfpef) Heart Failure With Preserved Ejection Fraction (Hcc) Peripheral Neuropathy Ckd (Chronic Kidney Disease) Stage 3, Gfr 30-59 Ml/Min Obesity, Class III, BMI >= 40 (morbid obesity) E66.01 Aps (Antiphospholipid Syndrome) (Hcc) Anticoagulation Management Encounter Pulmonary Htn Gerd (Gastroesophageal Reflux Disease) Ruq Abdominal Pain Diarrhea Bacteremia History of HIT (heparin-induced thrombocytopenia) (HCC) Recurrent Deep Vein Thrombosis (Dvt) (Hcc) Recurrent Pulmonary Emboli (Hcc) Anticoagulation Monitoring, Special Range Renal Vein Thrombosis (Hcc) Ivc Thrombosis (Hcc) Hypercoagulable State (Hcc) Healthcare Maintenance Iron Deficiency Anemia Secondary to Inadequate Dietary Iron Intake Sirs (Systemic Inflammatory Response Syndrome) (Hcc) Sepsis Due to Enterococcus (Hcc) Bacteremia Due to Staphylococcus Epidermidis Obesity, Class II, BMI 35-39.9 E66.9 Retroperitoneal Bleeding Acute Blood Loss Anemia Retroperitoneal Hemorrhage Malnutrition of Mild Degree (Hcc) Anti-Phospholipid Antibody Syndrome (Hcc) Retroperitoneal Hematoma Right Groin Pain Moraxella Catarrhalis Pneumonia (Hcc) Weakness of Left Leg PMANDR REVIEW OF SYSTEMS: General: Weakness:generalized , Fevers none. Skin: redness on lower extremity from swelling: yes, Open skin or ulcers: yes sacral ulcer, left groin drainage: yes emptying in to zuniga bag HEENT: Vision issues: yes needs new glasses, Hearing problems: none Cardiopulmonary: Chest pain: none, SOB: none Musculoskeletal: at risk for falling: yes GI: Constipation: yes took miralax this am, Diarrhea: none, Vomiting: none, Nausea: none. Genitourinary: Zuniga/SP:none, Difficulty emptying: none, Incontinence: none. Psychiatric: Depression: situational, Anxiety:none. Vascular: Hx of DVT: yes Endocrine: Diabetes:none, Thyroid disease: none Neuro: Seizures: none, Dysphagia: none, Language impairment: none. Diet: Orders Placed This Encounter DIET REGULAR Objective PHYSICAL THERAPY 6- CLICKS SCORE: PT 6 Clicks Score: 12 OCCUPATIONAL THERAPY 6- CLICKS SCORE : OT 6 Clicks Score: 17 PHYSICAL EXAM: VITAL SIGNS 24 HOUR REVIEW: Patient Vitals for the past 24 hrs: BP Temp Temp src Pulse Resp SpO2 Weight 11/15/17 0909 154/78 36.7 ?C (98.1 ?F) Oral 88 18 95 % - 11/15/17 0742 163/81 - - 93 - - - 11/15/17 0605 176/97 36.4 ?C (97.6 ?F) Oral 100 18 94 % 99 kg (218 lb 4.1 oz) 11/15/17 0200 157/83 36.8 ?C (98.3 ?F) Oral 93 18 97 % - 11/14/17 2114 154/85 36.6 ?C (97.9 ?F) Oral 70 18 96 % - 11/14/17 1713 145/77 36.4 ?C (97.6 ?F) Oral 77 18 94 % - 11/14/17 1652 150/70 - - 82 - - - 11/14/17 1355 136/62 36.6 ?C (97.8 ?F) Oral 85 18 93 % - General: a large adult in no distress. Skin: left groin with drainage bag HEENT: EOMIB Lung exam: is clear. Heart: without audible murmurs. Abdominal: benign - soft, non tender with bowel sounds present. Vascular: redness and swelling in bilateral lower extremities Orientation was full x 3 Affect: appropriate / social interaction preserved. Swallowing: normal handling of oral secretions. Visual ceballos were full. Facial asymmetry was absent. Nystagmus absent. Gaze was conjugate. Language assessment noted no dysarthria, anomia, normal fluency, repetition and comprehension. Muscle testing of four limbs and trunk notes B UE 4+/5 B LE 4-/5 Muscle exam: noted no atrophy, fasciculation or dystonia. Focal sensory deficits: are absent. LABORATORY TESTING: I reviewed the relevant labs and imagining CBC: Recent Labs 11/15/17 0601 11/14/17 1315 11/14/17 0426 11/13/17 0804 11/12/17 1704 11/12/17 0518 11/11/17 1517 11/11/17 0335 WBC 4.26 5.43 4.40 5.65 4.69 8.20 5.54 5.57 HB 10.5* 10.7* 10.6* 10.1* 10.0* 9.6* 10.2* 9.5* HCT 32.6* 33.2* 32.3* 30.7* 30.9* 30.1* 31.6* 29.5* PLT 43* 37* 26* 40* 34* 28* 34* 25* MCV 100.9* 104.1* 103.5* 100.0 101.3* 100.7* 101.9* 101.4* RDWCV 24.8* 25.3* 25.6* 25.5* 25.5* 25.7* 25.6* 25.7* COAG: No results for input(s): APTT, INR in the last 168 hours. BMP: Recent Labs 11/15/17 0611/14/17 0426 11/13/17 0811/12/1751711/11/17 0335 11/10/17 03311/09/17 0549 GLUC 74 79 73* 128* 123* 91 88 NA 142 141 138 138 140 135* 138 K 3.8 3.7 4.5 3.8 3.4* 3.9 3.4* CHLOR 101 101 99 99 100 95* 96* CO2 26 25 24 25 24 27 26 ANION 15 15 15 14 16 13 16 BUN 52* 46* 46* 47* 47* 56* 57* CREAT 1.08* 1.06* 0.88 0.96 1.10* 0.96 1.29* CHEM: Recent Labs 11/15/17 0601 11/14/17 0426 11/13/17 0811/12/1751711/11/17 0335 11/10/17 03311/09/17 0549 CA 8.9 8.7 8.9 8.6 8.3* 8.8 8.9 MG 2.1 1.8 2.1 1.8 1.8 1.9 2.0 P 3.9 4.0 3.5 3.3 3.4 3.3 3.8 HEPATIC: No results for input(s): ALKPHOS, ALT, AST, TBILI, LIPASE in the last 168 hours. Impression/Recommendations DIAGNOSIS:debility RECOMMENDATIONS: Patient most likely will be appropriate for [facility] facility in future (moderate exercise program 1-2 hours per day). However, really to early to make post acute level of care recommendation. Patient currently not requiring dialysis. She is requiring apheresis every 2 weeks. Plan in future is to start bivalrudin to coumadin bridge once platlets stabilize. Her platelets are still low and she has had 2 major bleeding events (diffuse alveolar hemorrhage and retroperitoneal hemorrhage) which make intense exercise program (3 hours per day) risky for soft tissue injury. SIGNATURE: Viraj Starr MD PATIENT NAME: Paloma Cannon DATE: November 15, 2017 TIME: 1:07 PM PAGER/CONTACT #: [phone] Observed: 11/15/2017 Status: COMPLETED Source: [place] 12:28 PM [facility] REPOSITORY O ID: [id number] Author: Anahi Mai (Diet-T) Service: Nutrition Therapy Author Type: Surveyor Helper Type: Nutrition Filed: 11/15/2017 12:29 PM Note Text: NUTRITION THERAPY FOLLOW-UP NOTE SERVICE DATE: 11/15/2017 SERVICE TIME: 910 Anthropometrics: Height: 160 cm (5' 3) Current Weight: Weight: 99 kg (218 lb 4.1 oz) Body mass index is 38.66 kg/m?. Loss of lean body mass/visual muscle wasting: no Admitting Diagnosis: Retroperitoneal bleed [R58] Present Diet Order: Regular Is the patient having any pain that is interfering with oral/enteral intake? No Allergies: ALLERGIES Allergen Reactions - Rhubarb Rash, Hives - Chlorhexidine Rash Patient has sensitivity to CHG gel impregnated dressing. Patient can tolerate a sorbaview dressing AND a CHG biopatch. - Heparin Other: See Comments Per patient history of HIT - was on angiomax however then took l fondaparinux for bridging to coumadin. - Iv Contrast [Iodine] Other: See Comments shuts kidneys down per patient - Rituximab Other: See Comments Elevated cardiac enzymes Reason for Visit: Nutrition screen: LOS > 6 days Food preferences: one voucher Nutrient intake assessment: Current intake of meals: 75 - 100% Patient concerns/Issues: The patient states she is eating well. She has a good appetite. She does not want any supplements. Snacks have also been declined.will continue to monitor. Nursing Admission Assessment Malnutrition Score Tool: 1 Plan of Care: Recommendation No problems noted at this time. Will screen again within 7 days Discharge Plan: Regular MNT Billing Type: Routine Care/15 min 1 unit SIGNATURE: Anahi Mai DTR [facility] PATIENT NAME: Paloma Cannon DATE: November 15, 2017 TIME: 12:28 PM PAGER: [phone] PLAN OF CARE Observed: 11/15/2017 Status: COMPLETED Source: [place] 11:48 AM [facility] REPOSITORY HNO ID: [id number] Author: Hodan SanchezAkron Global Business AcceleratorJulia Whitney Service: (none) Author Type: (none) Type: Plan of Care Filed: 11/15/2017 11:48 AM Note Text: Pharmacy Discharge Medication Service: This patient has elected to receive their discharge prescriptions through the [facility] Bedside Prescription Delivery program. The prescriptions are currently being processed. A follow-up note will be entered once the prescriptions have been filled and delivered to the patient. Please contact me with any questions or updates to the patient's discharge medications. Julia Pettit ([employer]ator) DCT Contact Info: [phone] PLAN OF CARE Observed: 11/15/2017 Status: COMPLETED Source: [place] 11:47 AM [facility] REPOSITORY HNO ID: [id number] Author: Hodan SanchezAkron Global Business AcceleratorJulia Whitney Service: (none) Author Type: (none) Type: Plan of Care Filed: 11/15/2017 11:48 AM Note Text: [facility] BEDSIDE DELIVERY SURVEY 1. Patient to use [facility] Bedside Delivery - YES 2. If fax, patient would like us to fax prescriptions to Pharmacy of choice a. Pharmacy: b. Location: c. Phone: 3. Insurance card on file - YES 4. Credit card for payment - N/A No prescriptions yet. Please page [phone] upon discharge. CBC Collected: 11/15/2017 Status: F Source: [place] 6:01 AM [facility] REPOSITORY TYPE CODE TESTS RESULT OUT OF REFERENCE UNITS RANGE LAB WBC 3.70-11.00 k/uL WBC 4.26 LAB RBC 3.90-5.20 m/uL Low RBC 3.23 LAB HGB 11.5-15.5 g/dL Low Hemoglobin 10.5 LAB HCT 36.0-46.0 % Low Hematocrit 32.6 LAB MCV 80.0-100.0 fL MCV High 100.9 LAB MCH 26.0-34.0 pG MCH 32.5 LAB MCHC 30.5-36.0 g/dL MCHC 32.2 LAB RDWCV 11.5-15.0 % RDW-CV High 24.8 LAB PLTCT 150-400 k/uL Low Platelet Count 43 Result Comment: Result checked and verified No clot detected. LAB MPV 9.0-12.7 fL MPV <<DO NOT REPORT>> LAB ABSNUC <0.01 k/uL 0.01 High Absolute nRBC Performed By: #### CBC, MG1, PHOS, BMP #### [facility] [address] [address] MAGNESIUM Collected: 11/15/2017 Status: F Source: [place] 6:01 [facility] REPOSITORY TYPE CODE TESTS RESULT OUT OF REFERENCE UNITS RANGE LAB MG 1.7-2.3 mg/dL Magnesium 2.1 Performed By: #### CBC, MG1, PHOS, BMP #### [facility] [address] [address] PHOSPHORUS Collected: 11/15/2017 Status: F Source: [place] 6:01 [facility] REPOSITORY TYPE CODE TESTS RESULT OUT OF REFERENCE UNITS RANGE LAB PHOS 2.7-4.8 mg/dL Phosphorus 3.9 Performed By: #### CBC, MG1, PHOS, BMP #### [address] [id number] [place] [address] BASIC METABOLIC PANL Collected: 11/15/2017 Status: F Source: [place] 6:[address] [place] [address] REPOSITORY TYPE CODE TESTS RESULT OUT OF REFERENCE UNITS RANGE LAB GLU 74-99 mg/dL Glucose 74 Result Comment: The [place] Diabetes Association (ADA) provides guidance for cutoff values for fasting glucose and random glucose. The ADA defines fasting as no caloric intake for at least 8 hours. Fas ting plasma glucose results between 100 to 125 mg/dL indicate increased risk for diabetes (prediabetes). Fasting plasma glucose results greater than or equal to 126 mg/dL meet the criteria for diagnosis of diabetes. In the absence of unequivocal hyperglycemia, results should be confirmed by repeat testing. In a patient with classic symptoms of hyperglycemia or hyperglycemic crisis, random plasma glucose results greater than or equal to 200 mg/dL meet the criteria for diagnosis of diabetes. Reference: Standards of Medical Care in Diabetes 2016, [place] [employer] Association. Diabetes Care. 2016.39(Suppl 1). LAB BUN 7-21 mg/dL BUN High 52 LAB CRET 0.58-0.96 mg/dL Creatinine High 1.08 LAB NA 136-144 mmol/L Sodium 142 LAB K 3.7-5.1 mmol/L Potassium 3.8 LAB CL 97-105 mmol/L Chloride 101 LAB CO2 22-30 mmol/L CO2 26 LAB AGAP 9-18 mmol/L Anion Gap 15 LAB CA 8.5-10.2 mg/dL Calcium, Total 8.9 LAB GFRAA eGFR- Amer. >60 LAB GFRNAA . eGFR-All Other Races >60 Result Comment: eGFR (Estimated GFR) Units of measure: mL/min/1.73 meters squared eGFR is derived from the reexpressed MDRD Study equation using the following parameters: serum creatinine, age, gender and race. The creatinine assay has been calibrated to be traceable to IDMS. An eGFR <60 mL/min/1.73m2 for >3 months is consistent with chronic kidney disease. Refer to KDOQI guidelines for clinical interpretation. In patients with unstable renal function, e.g. those with acute kidney injury, the eGFR may not accurately reflect actual GFR. Performed By: #### CBC, MG1, PHOS, BMP #### [facility] [address] [place] [id number] NURSING PROG Observed: 11/14/2017 Status: COMPLETED Source: [place] 6:05 PM [facility] REPOSITORY O ID: [id number] Author: Eduardo Yates (Rn), RN Service: Nursing Author Type: Registered Nurse Type: Nursing Progress Note Filed: 11/14/2017 6:09 PM Note Text: Nursing Progress Note Patient Name: Paloma Cannon [id number] Daily Note: OOB via 2 assist using gait belt and walker to chair. PLT=26 in AM; 1 unit fo PLT given without any complications. Patient pre- medicated with benadryl and solu-cortef. PLT=37 afterwards. Mg=1.8, 2g Mg given. PT/OT saw patient today. Oxycodone and IV Dilaudid given for left side pain with some relief. Zuniga removed at 1345 with patient urinating multiple times afterwards without difficulty. This note was completed by: Eduardo Yates RN CONSULT Observed: 11/14/2017 Status: COMPLETED Source: [place] 4:46 PM [facility] REPOSITORY HNO ID: [id number] Author: Michelle Garcia (Cinder Crane Operator) Service: Physical Medicine AND Rehabilitation Author Type: Nurse Practitioner Type: Consults Filed: 11/14/2017 4:46 PM Note Text: PMANDR consult received today. Chart reviewed. Evaluation with [facility] staff to follow tomorrow. Thank you for the consult. Please call with any questions. Michelle Garcia APRN.[facility] Physical Medicine and Rehabilitation pager [phone] CONSULT PROG Observed: 11/14/2017 Status: COMPLETED Source: [place] 4:33 PM [facility] REPOSITORY HNO ID: [id number] Author: Justina Pollard (Cy) Service: Hematology Author Type: Physician Satellite Tv Technician Installer Type: Consult Progress Note Filed: 11/14/2017 4:37 PM Note Text: CONSULT PROGRESS NOTE SERVICE DATE: 11/14/2017 CONSULTING SERVICE: He,atology Subjective INTERVAL HPI: PLT count dropped again to 26 K today, received a uPLT earlier today Received an extra dose of N plate 3 mcg/kg yesterday Current hospital medications: torsemide 20 mg tab(s) (DEMADEX) 20 mg ORAL DAILY 0.9% NaCl 10 mL 10 mL INTRAVENOUS q 12 H 0.9% NaCl 20 mL 20 mL INTRAVENOUS PRN sodium citrate 4% 3-6 mL catheter lock 3-6 mL INTRALUMINAL APHERESIS PRN gabapentin 300 mg cap(s) (NEURONTIN) 300 mg ORAL q 8 H HYDROmorphone 0.2 mg in NaCl 0.9% (DILAUDID) 0.2 mg INTRAVENOUS q 4 H PRN albuterol 2.5 mg /3 mL (0.083 %) 2.5 mg (PROVENTIL) 2.5 mg INHALATION q 4 WEEKS pentamidine 300 mg nebulizer solution (NEBUPENT) 300 mg INHALATION q 4 WEEKS NIFEdipine ER 60 mg tab(S) (PROCARDIA XL) 60 mg ORAL DAILY carvedilol 25 mg tab(s) (COREG) 25 mg ORAL/FEEDING TUBE BID w MEALS oxyCODONE IR 5-10 mg tab(s) (ROXICODONE) 5-10 mg ORAL/FEEDING TUBE q 4 H PRN predniSONE (DELTASONE) tab(s) 60 mg 60 mg ORAL/FEEDING TUBE DAILY lidocaine 5 % 1 Patch (LIDODERM) 1 Patch TRANSDERMAL DAILY lidocaine patch - REMOVE OTHER AT BEDTIME lidocaine - VERIFY PATCH OTHER q 8 H polyethylene glycol 3350 17 g packet (MIRALAX, GLYCOLAX) 17 g ORAL/FEEDING TUBE DAILY docusate sodium 100 mg cap(s) (COLACE) 100 mg ORAL BID senna 8.6 mg tab(s) (SENOKOT) 8.6 mg ORAL/FEEDING TUBE BID pantoprazole DR 40 mg tab(s) (PROTONIX) 40 mg ORAL DAILY (6 AM) ondansetron 8 mg tab(s) (ZOFRAN) 8 mg ORAL q 8 H PRN diphenhydrAMINE 50 mg (BENADRYL) 50 mg ORAL/FEEDING TUBE q 6 H PRN hydrocortisone sodium succinate (PF) 100 mg injection (Solu- CORTEF) 100 mg INTRAVENOUS q 4 H PRN diphenhydrAMINE 50 mg injection (BENADRYL) 50 mg INTRAVENOUS q 4 H PRN prochlorperazine 5 mg injection (COMPAZINE) 5 mg INTRAVENOUS q 6 H PRN dextrose 50% in water 25-50 mL syringe 12.5-25 g INTRAVENOUS PRN dextrose 40 % 15 g 15 g ORAL PRN glucagon 1 mg injection (GLUCAGEN) 1 mg SUBCUTANEOUS PRN acetaminophen 650 mg tab(s) (TYLENOL) 650 mg ORAL/FEEDING TUBE q 6 H PRN acetaminophen 650 mg suppository (TYLENOL) 650 mg RECTAL q 6 H PRN Objective PHYSICAL EXAM: BP 136/62 Pulse 85 Temp (Src) 97.8 (Oral) Resp 18 Ht 5' 3 (1.60m) Wt 218 lb 0.6 oz (98.9kg) SpO2 93% BMI 38.63 kg/(m2). General: Alert, NAD. Heart/CV: ?Grossly RRR Lungs: CTA Abd: ?Soft, NT,ND Extremities/Skin: No rashes appreciated DATA: Component Latest Ref Rng AND Units 11/14/2017 11/14/2017 4:26 AM 1:15 PM WBC 3.70 - 11.00 k/uL 4.40 5.43 RBC 3.90 - 5.20 m/uL 3.12 (L) 3.19 (L) Hemoglobin 11.5 - 15.5 g/dL 10.6 (L) 10.7 (L) Hematocrit 36.0 - 46.0 % 32.3 (L) 33.2 (L) MCV 80.0 - 100.0 fL 103.5 (H) 104.1 (H) MCH 26.0 - 34.0 pG 34.0 33.5 MCHC 30.5 - 36.0 g/dL 32.8 32.2 RDW-CV 11.5 - 15.0 % 25.6 (H) 25.3 (H) Platelet Count 150 - 400 k/uL 26 (L) 37 (L) MPV 9.0 - 12.7 fL <<DO NOT REPORT>> <<DO NOT REPORT>> Absolute nRBC <0.01 k/uL <0.01 0.02 (H) Impression/Recommendations 27 y/o female?with PMHx of 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 Recent admission 10/13/17-10/23/17 for hemoptysis and SOB, requiring intubation, was in MICU for management of DAH. readmitted to MICU again for ?extensive left retroperitoneal hemorrhage?s/p IR guided intervention (initially on 10/23 at [facility] and 10/26 here at [facility]. ? # Antiphospholipid antibody syndrome -recent?home therapy : Prednisone 60 mg ( home dose 5 mg), Cytoxan 75 mg ( home dose 150 mg), pheresis QOW ?-continue with current dose of steroids -Cytoxan stopped on 11/09 given persistent thrombocytopenia as this might he causing myelosuppression ?-given N plate 2mcg/kg sq x1 on 11/09 and another dose of 3 mcg/kg on 11/13. ?-continue to trend plt level ?-Agree with changing Bacrin to Pentam Inh ?-AC is on hold due to recent bleeding and persistent thrombocytopenia. ?-Pheresis is due today ? ? #Extensive left retroperitoneal hemorrhage -likely secondary to anticoagulant. Its an unfortunate case, she needs an anticoagulation for APS but bleeding episodes prohibits -sp IR intevention on 10/23 and 10/26? -Hemoglobin has been stable, would decrease transfusion threshold for platelet if PLT count <20 K ? #Abnormal hemolysis labs - with elevated LD, elevated retic, and an undetectable hapto. Hemoglobin has been stable. - ?Direct [place] is negative -ADAMTS 13 activity resulted at 56 % speaking against TTP -Abnormal hemolysis labs likely?related to resolving hematoma. ? SIGNATURE: Justina Pollard PA-C PATIENT NAME: Paloma Cannon DATE: November 14, 2017 TIME: 4:33 PM PAGER: [phone] THERAPY NT Observed: 11/14/2017 Status: COMPLETED Source: [place] 4:06 PM [facility] REPOSITORY [facility] ID: [id number] Author: Indra Woods (Rn Interventional) Service: Physical Therapy Author Type: Ancillary Specialist Type: Therapy (PT/OT/Speech/Resp) Filed: 11/14/2017 4:19 PM Note Text: Attestation signed by Brenda Meraz (Pt) at 11/15/2017 7:31 AM I reviewed and agree with the assessment as documented above. SIGNATURE: Brenda Meraz, PT DATE: November 15, 2017 TIME: 7:31 AM Physical Therapy Treatment SERVICE DATE: 11/14/2017 SERVICE TIME: 1510 to 1550 ROOM: [place] [address] Recommended Discharge Disposition: Acute Rehab Justification For Post Acute Needs: Anticipate that patient will require daily (5x/wk) skilled therapy in a post-acute facility setting at the time of acute hospital discharge;Willing to participate;Motivated;Anticipate patient will tolerate 3 hours of daily therapy at the time of admission to post-acute setting;Good family support Anticipated Discharge Needs: Undetermined PT Recommendations to Nursing: With assist of 1 person;Transfer to/from chair;OOB for Meals PT 6 Clicks Score: 12 Precautions/Activity Restrictions: Fall Risk;Lines/Tubes/Drains ASSESSMENT : Patient's level of assist varies due to fatigue level. Patient fatigued after working with OT and unable to stand from WC requiring max of 1 and mod assist of 1 to stand pivot to bed from WC. Patient would benefit from Acute Rehab to address current functional deficits Patient Disposition at Start of Session: OOB in Chair Patient Disposition at End of Session: Supine in Bed;Call Wagoner in Reach Tolerance Limited By Fatigue Physical Therapy Problem List: Cognitive Deficit;Education Deficit;Decreased Activity Tolerance;Decreased Strength;Functional Mobility Impairment Patient /Caregiver Goals: Go Home Goals for Plan of Care: Rolling with: Independent Transfer supine to/from sit with: Independent Transfer sit to/from stand with: Contact Guard Assistance Ambulate with: Contact Guard Assistance Distance: 10 Device: Wheeled Walker Progress Toward Goals: Progressing slower than expected Due To: medical acuity varies level of assist needed Rehab Potential: Good PLAN: Treatment Frequency (times per week): 3 (1-2PRN) Treatment Duration (number): 2 Weeks Treatment Interventions: Education;Energy Conservation Training;Strengthening;Functional Mobility Training;Balance Training Plan of Care developed with: Patient TREATMENT INTERVENTIONS: Therapy Diagnosis: Reduced mobility-other Interventions Provided: Therapeutic Activity (23299);Therapeutic Exercise (22276) Therapeutic Exercise (82798) Treatment Minutes: 15 1 unit Skilled Intervention(s): Patient instructed in and performed seated exercises for 20 reps: ankle pumps, LAQ, marching, hip abduction, heelslides with assist for minimal tactile and verbal cues for pacing and proper technique. Patient required rest breaks between sets due to fatigue. Educated patient in reasoning for each exercise. Patient stated performing supine exercise in bed everyday. Therapeutic Activity (71355) Treatment Minutes: 23 2 units Skilled Intervention(s): Instructed patient in log roll technique Instructed patient in sit to supine using safe, effective technique Education with importance of OOB activities and pacing activity. Patient sat EOB for 15 mins for core strengthening and dynamic activity including reaching outside base of support. Patient unable to stand from WC after 2 attempts ( with max assist of 2) due fatigue in BLE and having transferred multiple times with OT and nursing staff just prior to PT. Transfer training from WC to bed using modified stand pivot with assist of 2 with cues for balance, foot placement, trunk alignment and knee extension. Push-ups on bed to place and retrieve bed quiñonez sitting with moderate assist of 1 with cues for proper technique. ?Extra time for lines and tubes management. Total Timed Code Treatment Minutes: 38 Total Treatment Time (minutes): 40 FUNCTIONAL G CODE: PT 6 Clicks Score: 12 (11/14/17 1510) Mobility: Walking and Moving Around Current Status (G8978): CL (11/02/17 1015) Mobility: Walking and Moving Around Goal Status (G8979): CK (11/02/17 1015) Based on clinical assessment and the score on the 6 Clicks Functional Assessment Tool, the G code and corresponding severity modifiers are documented above. SUBJECTIVE: Current Hospital Course: Chart reviewed and no significant medical updates relevant to therapy were noted Patient Report: Patient excited about using BSC with OT. 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 Entry To Home: No Stairs Number Of Stairs To Bed/Bath: 0 Tub/Shower Type: walk in shower Equipment Owned: Commode-Raised;Grab Bars-Shower;Grab Bars-Toilet;Shower Chair;Home Oxygen Prior Functional Level: Required Assistance Assistance Required With: Cleaning;Laundry;Meals;Shopping;Transportation Prior Wound Care: Other: See Comment (unable to don compression stockings (I)) OBJECTIVE: CURRENT FUNCTIONAL STATUS: Current Functional Mobility Assist Level Additional Information Rolling Contact Guard Assistance Supine to Sit Contact Guard Assistance (using bed rail) Sit to Supine Moderate Assistance (BLE) Scooting Contact Guard Assistance Sit to Stand Moderate Assistance ( x 2) unable to stand due to fatigue Stand to Sit Moderate Assistance (x 2) Unable to stand due to fatigue Bed to Chair Maximal Assistance (and moderate assist) Toilet/Commode Gait Moderate Assistance Gait Device: Wheeled Walker;With Wheelchair Follow Gait Distance (feet): 3', 4' x 2, 8'- NT today due to fatigue Stairs Curb Step Car Transfer Balance: Static Sitting;Dynamic Sitting Static Sitting Balance: Stand By Assistance Dynamic Sitting Balance: Contact Guard Assistance Please see discipline specific clinical documentation flowsheet for complete details for this therapy evaluation/treatment. SIGNATURE: Indra Woods PTA PATIENT NAME: Paloma Cannon DATE: November 14, 2017 TIME: 4:06 PM PAGER/CONTACT #: [phone] THERAPY NT Observed: 11/14/2017 Status: COMPLETED Source: [place] 3:33 PM [facility] REPOSITORY O ID: [id number] Author: Zahra Burks (Elroy) Service: Occupational Therapy Author Type: Weigh And Charge Worker Type: Therapy (PT/OT/Speech/Resp) Filed: 11/14/2017 3:39 PM Note Text: Attestation signed by Yue Uriostegui at 11/14/2017 3:57 PM I reviewed and agree with the documentation corresponding to this therapy visit. SIGNATURE: JERMAINE Maldonado/Allie DATE: November 14, 2017 TIME: 3:57 PM Occupational Therapy Treatment SERVICE DATE: 11/14/2017 SERVICE TIME: 1359 to 1446 ROOM: [id number] Recommended Discharge Disposition: Acute Rehab Justification For Post Acute Needs: Anticipate patient will tolerate 3 hours of daily therapy at the time of admission to post-acute setting;Anticipated community discharge;Cognition intact;Good family support;Good premorbid functional status;Good sitting tolerance;Medically complex;Motivated;Willing to participate;Anticipate that patient will require daily (5x/wk) skilled therapy in a post-acute facility setting at the time of acute hospital discharge Anticipated Discharge Needs: Undetermined OT Recommendations to Nursing: ADL?s in chair;Bedside Commode for Toileting;With assist of 2 people Equipment: (TBD) OT 6 Clicks Score: 17 Precautions/Activity Restrictions: Fall Risk;Lines/Tubes/Drains ASSESSMENT: Patient presents with decreased activity tolerance impacting performance in I/ADLs. Requires skilled OT for greater independence and safety with I/ADLs. Patient Disposition at Start of Session: Supine in Bed Patient Disposition at End of Session: Supine in Bed Tolerated Full Session Occupational Therapy Problem List: Edema;Impaired Self Care;Decreased Activity Tolerance;Decreased Strength;Functional Mobility Impairment;Balance Impaired Patient /Caregiver Goals: Go Home Goals for Plan of Care: Able to perform HEP with: Modified Independent (PROGRESSING) Grooming with: Modified Independent (PROGRESSING) Upper Body Bathing with: Modified Independent Upper Body Dressing with: Modified Independent Lower Body Bathing with: Modified Independent Lower Body Dressing with: Modified Independent (PROGRESSING) Toilet Hygiene with: Modified Independent Toilet Transfer with: Modified Independent Tolerate (minutes of functional activity): (MET) Functional Activity with: Modified Independent (PROGRESSING) Demonstrate Positive Coping Strategies with: Modified Independent (PROGRESSING) Demonstrate Competence With Education with: Modified Independent Progress Toward Goals: Progressing as expected Rehab Potential: Excellent PLAN: Treatment Frequency (times per week): 2 (+ 2 PRN per week) Current admission Treatment Interventions: Education;Self Care / Home Management;Energy Conservation Training;Strengthening;Functional Mobility Training;Balance Training;Edema Management;Pain Management Plan of Care developed with: Patient TREATMENT INTERVENTIONS: Therapy Diagnosis: Decreased activities of daily living (ADL) Interventions Provided: Therapeutic Exercise (05411);Therapeutic Activity (02795);Self Nursing Home Management (53145) Therapeutic Exercise (27228) Treatment Minutes: 17 1 unit Skilled Intervention(s): Instructed pt through bilateral upper extremity exercises to increase strength, endurance, and functional range of motion needed for improved tolerance with I/ADLs and functional mobility in prep for household distances. Provided cues for pursed lip breathing, pacing range of motion, and optimal alignment and recruitment. Pt completed the following exercises x10 reps, 2 set as follows. Utilized level I therapy band - shoulder flexion/extension, shoulder horizontal abd/adduction, chest press, elbow flexion/extension Therapeutic Activity (97775) Treatment Minutes: 15 1 unit Skilled Intervention(s): Instructed patient in supine to sit pushing with upper extremities to sit up Instructed patient in sit to supine using safe, effective technique Educated on acute rehab OT treatments. Self Nursing Home Management (25282) Treatment Minutes: 15 1 unit Skilled Intervention(s): Instructed pt on safe toilet transfer to/from [facility] using proper hand placement for safety. Provided mod A x2 persons for transfer with use of gait belt and FWW. Provided SBA for balance and safety while seated during toileting. Facilitated completion of daxa/buttocks care with set up assist. Provided cues for repositioning for increased ease of daxa/buttock hygiene. Total Timed Code Treatment Minutes: 47 Total Treatment Time (minutes): 47 FUNCTIONAL G CODE: OT 6 Clicks Score: 17 (11/14/171358) Self Care Current Status (G8987): CK (11/14/171358) Self Care Goal Status (G8988): CJ (11/14/171358) Based on clinical assessment and the score on the 6 Clicks Functional Assessment Tool, the G code and corresponding severity modifiers are documented above. 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 Now, I'm really excited to go to rehab (in [facility]). 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 Entry To Home: No Stairs Number Of Stairs To Bed/Bath: 0 Tub/Shower Type: walk in shower Equipment Owned: Commode-Raised;Grab Bars-Shower;Grab Bars-Toilet;Shower Chair;Home Oxygen Prior Functional Level: Required Assistance Assistance Required With: Cleaning;Laundry;Meals;Shopping;Transportation Prior Wound Care: Other: See Comment (unable to don compression stockings (I)) OBJECTIVE: Orientation Deficits: Other: See Comment (Improved orientation to self and situation. NA time/day) Responsiveness: Alert Follows Commands: 3-step Commands;Cueing Needed Cueing to Follow Commands: Minimum Psychosocial Deficit: depressed, anxious CURRENT FUNCTIONAL STATUS: Current Activities of Daily Living Assist Level Feeding Set Up Grooming Set Up Bathing Upper Body Minimal Assistance Bathing Lower Body Moderate Assistance Dressing Upper Body Minimal Assistance Dressing Lower Body Total Assistance Toileting Moderate Assistance Instrumental Activities of Daily Living Assist Level Meal/Beverage Prep Light Cleaning Laundry Medication Management with Strategies Supervision Functional Mobility Assist Level Rolling Minimal Assistance Supine to Sit Minimal Assistance Sit to Supine Minimal Assistance Scooting Minimal Assistance Sit to Stand Maximal Assistance (mod x2 person) Stand to Sit Maximal Assistance (mod x 2 person) Bed to Chair Other: See Comment (NA) Stand Pivot Wheeled Walker Toilet/Commode Maximal Assistance ( mod x2 person) Functional Mobility Please see discipline specific clinical documentation flowsheet for complete details for this therapy evaluation/treatment. SIGNATURE: ELROY Perez PATIENT NAME: Paloma Cannon DATE: November 14, 2017 TIME: 3:34 PM PAGER: [phone] CBC Collected: 11/14/2017 Status: F Source: [place] 1:15 PM [facility] REPOSITORY TYPE CODE TESTS RESULT OUT OF REFERENCE UNITS RANGE LAB WBC 3.70-11.00 k/uL WBC 5.43 LAB RBC 3.90-5.20 m/uL Low RBC 3.19 LAB HGB 11.5-15.5 g/dL Low Hemoglobin 10.7 LAB HCT 36.0-46.0 % Low Hematocrit 33.2 LAB MCV 80.0-100.0 fL MCV High 104.1 LAB MCH 26.0-34.0 pG MCH 33.5 LAB MCHC 30.5-36.0 g/dL MCHC 32.2 LAB RDWCV 11.5-15.0 % RDW-CV High 25.3 LAB PLTCT 150-400 k/uL Low Platelet Count 37 Result Comment: Result checked and verified No clot detected. LAB MPV 9.0-12.7 fL MPV <<DO NOT REPORT>> LAB ABSNUC <0.01 k/uL 0.02 High Absolute nRBC Performed By: #### CBC #### [facility] [address], [place] [address] CASE MANAGEM Observed: 11/14/2017 Status: COMPLETED Source: [place] 11:33 AM [facility] REPOSITORY HNO ID: [id number] Author: Jacinta Olmedo (Rn), RN Service: Care Management Author Type: Registered Nurse Type: Care Mgt Progress Note Filed: 11/14/2017 11:38 AM Note Text: CARE MANAGEMENT PROGRESS NOTE SERVICE DATE: 11/14/2017 SERVICE TIME: 11:34 AM LOS: 20 days Needs Prior to Discharge: Accepting Facility;Bed Availability;Insurance Authorization;Discharge Transportation Earliest dc next week Awaiting PMANDR. Per Gissell, [facility] AKILAH Gutiérrez (p) [phone] [facility] unable to accept. Referal sent to Peyman ISBELL for review at direction of CC AKILAH gutiérrez (pt agreeable) If accepted, Peyman jin may request pt to receive apheresis in house prior to dc. Per MD, at dc pt will need apheresis q 2 weeks indefinitely and close daily lab montoring of blood status for possible need for transfusion . Current on 2LO2/nc, has home O2 2L 02 via [employer]. Nikolaymars MAZA is Elsa Matos (p) - updated on dc plan today. CM to continue to follow SIGNATURE: Jacinta Olmedo RN PATIENT NAME: Paloma Cannon DATE: November 14, 2017 TIME: 11:34 AM PAGER/CONTACT #: [phone] THERAPY NT Observed: 11/14/2017 Status: COMPLETED Source: [place] 11:17 AM [facility] REPOSITORY HNO ID: [id number] Author: Indra Woods (Rn Interventional) Service: Physical Therapy Author Type: Ancillary Specialist Type: Therapy (PT/OT/Speech/Resp) Filed: 11/14/2017 11:23 AM Note Text: Attestation signed by Brenda Meraz (Pt) at 11/14/2017 12:49 PM I reviewed and agree with the assessment as documented above. SIGNATURE: Brenda Meraz PT DATE: November 14, 2017 TIME: 12:48 PM PHYSICAL THERAPY MISSED VISIT SERVICE DATE: 11/14/2017 SERVICE TIME: 1116 to 1116 ROOM: [place] [address] Attempted Treatment. Patient not seen due to getting blood platelets in 10 mins. Will attempts again as able. SIGNATURE: Indra Woods PTA PATIENT NAME: Paloma Cannon DATE: November 14, 2017 TIME: 11:17 AM PAGER/CONTACT #: [phone] CONSULT Observed: 11/14/2017 Status: COMPLETED Source: [place] 11:05 AM [facility] REPOSITORY HNO ID: [id number] Author: Alicia Carmen (Glaucoma Specialist) Service: Nursing Author Type: Nurse Specialist Type: Consults Filed: 11/14/2017 2:16 PM Note Text: Paloma Cannon [id number] Reason for Consult: Routine CLABSI Prevention Rounding Assessment Dressing clean, dry, AND intact. No redness or edema around insertion site. Curos caps present. Patient reports tolerating dressing. Noted to have sutures in place on samantha catheter- sutures are impairing biopatch from being properly placed. Patient education: Materials provided: Preventing Central-Line Associated Bloodstream Infections (CLABSIs) While in the Hospital) Verbal instruction: Hand Hygiene, dressing integrity Rounding performed with: JEFF Clark, LIZET Alcantar, Darrell Ewing, People Greeter, AND SUYAPA Greene, MSN, [facility] [phone] 10 Minutes Thank you for including me in the care of this patient and please feel free to re-consult me if necessary. PROGRESS Observed: 11/14/2017 Status: COMPLETED Source: [place] 6:00 AM [facility] REPOSITORY HNO ID: [id number] Author: Ros Wayne Service: General Internal Medicine Author Type: Physician Type: Progress Notes Filed: 11/14/2017 5:31 PM Note Text: RAF Terry PROGRESS NOTE For questions regarding this patient today please page [phone] After 5 pm on weekdays and 3pm on weekends and holidays please page documentation clerk pager [phone] SERVICE DATE: 11/14/2017 SERVICE TIME: 6:00 AM INTERVAL HISTORY: - No events overnight - patient feels the same. HDS, on 2L NC - Apheresis yesterday to get her back on Monday q2wks schedule - second dose of N-plate yesterday (first on 11/09) - torsemide 20 mg once (home dose) yesterday - Uoutput 1.7L, I/Onet -1.38L - slight improvement in LE edema. Patient agrees - gabapentin 300 mg BID--> gabapentin 300 TID for pain - Patient improving with PT and able to transfer from bed to chair with walker with less assistance. Skilled for acute rehab, per PT. - pain better controlled; using less dilaudid for pain ? Labs: Hgb: 9.3-->9.5-->9.7-->9.0-->10.1-->9.8-->9.5-->9.6-->10-->10.1-->10.6 Creatinine: 1.10-->1.40-->1.19-->1.29-->0.96-->1.1-->0.96-->0.88-->1.06 Plt: 40-->34-->28-->36-->29-->25-1u plt->34-->28-1u plt->34-->40-->26 ? PLAN FOR TODAY - Transfuse 1 unit of platelets - recheck CBC 1 hour post transfusion - continue torsemide 20mg PO today - Appreciate hematology recommendations - Consider removing zuniga once patient is comfortable with ambulation. MEDICATIONS: Current hospital medications: magnesium sulfate in water 2 g in sterile water 50 ml 2 g INTRAVENOUS ONCE sodium citrate 4% 3-6 mL catheter lock 3-6 mL INTRALUMINAL APHERESIS PRN gabapentin 300 mg cap(s) (NEURONTIN) 300 mg ORAL q 8 H torsemide 20 mg tab(s) (DEMADEX) 20 mg ORAL DAILY HYDROmorphone 0.2 mg in NaCl 0.9% (DILAUDID) 0.2 mg INTRAVENOUS q 4 H PRN albuterol 2.5 mg /3 mL (0.083 %) 2.5 mg (PROVENTIL) 2.5 mg INHALATION q 4 WEEKS pentamidine 300 mg nebulizer solution (NEBUPENT) 300 mg INHALATION q 4 WEEKS NIFEdipine ER 60 mg tab(S) (PROCARDIA XL) 60 mg ORAL DAILY carvedilol 25 mg tab(s) (COREG) 25 mg ORAL/FEEDING TUBE BID w MEALS oxyCODONE IR 5-10 mg tab(s) (ROXICODONE) 5-10 mg ORAL/FEEDING TUBE q 4 H PRN predniSONE (DELTASONE) tab(s) 60 mg 60 mg ORAL/FEEDING TUBE DAILY lidocaine 5 % 1 Patch (LIDODERM) 1 Patch TRANSDERMAL DAILY lidocaine patch - REMOVE OTHER AT BEDTIME lidocaine - VERIFY PATCH OTHER q 8 H polyethylene glycol 3350 17 g packet (MIRALAX, GLYCOLAX) 17 g ORAL/FEEDING TUBE DAILY docusate sodium 100 mg cap(s) (COLACE) 100 mg ORAL BID senna 8.6 mg tab(s) (SENOKOT) 8.6 mg ORAL/FEEDING TUBE BID pantoprazole DR 40 mg tab(s) (PROTONIX) 40 mg ORAL DAILY (6 AM) ondansetron 8 mg tab(s) (ZOFRAN) 8 mg ORAL q 8 H PRN diphenhydrAMINE 50 mg (BENADRYL) 50 mg ORAL/FEEDING TUBE q 6 H PRN hydrocortisone sodium succinate (PF) 100 mg injection (Solu- CORTEF) 100 mg INTRAVENOUS q 4 H PRN diphenhydrAMINE 50 mg injection (BENADRYL) 50 mg INTRAVENOUS q 4 H PRN prochlorperazine 5 mg injection (COMPAZINE) 5 mg INTRAVENOUS q 6 H PRN 0.9% NaCl 2-10 mL 2-10 mL INTRAVENOUS PRN 0.9% NaCl 3-5 mL 3-5 mL INTRAVENOUS q 12 H dextrose 50% in water 25-50 mL syringe 12.5-25 g INTRAVENOUS PRN dextrose 40 % 15 g 15 g ORAL PRN glucagon 1 mg injection (GLUCAGEN) 1 mg SUBCUTANEOUS PRN acetaminophen 650 mg tab(s) (TYLENOL) 650 mg ORAL/FEEDING TUBE q 6 H PRN acetaminophen 650 mg suppository (TYLENOL) 650 mg RECTAL q 6 H PRN HOME MEDICATIONS: cyclophosphamide (CYTOXAN) 50 mg capsule Take 150 mg by mouth once daily. diphenhydrAMINE (BENADRYL) 50 mg capsule Take 1 capsule by mouth every 6 hours as needed for Itching/Rash. gabapentin (NEURONTIN) 100 mg capsule Take 1 capsule by mouth three times daily for 7 days. ondansetron (ZOFRAN, HYDROCHLORIDE,) 8 mg tablet Take 8 mg by mouth every 8 hours as needed for Nausea/Vomiting. pantoprazole DR (PROTONIX) 40 mg tablet Take 40 mg by mouth daily at bedtime. sulfamethoxazole-trimethoprim (BACTRIM DS) 800-160 mg per tablet Take 1 tablet by mouth every Monday,Monday,Monday. fluticasone (FLONASE) 50 mcg/actuation nasal spray Use 1-2 Sprays in each nostril once daily as needed for Cold/Allergy Symptoms (starting in allergy season). senna 8.6 mg tab Take 1 tablet by mouth twice daily as needed. PHYSICAL EXAM: VITAL SIGNS Patient Vitals for the past 24 hrs: BP Temp Temp src Pulse Resp SpO2 Weight 11/14/17 0600 159/71 36.6 ?C (97.8 ?F) Oral 71 18 96 % 98.9 kg (218 lb 0.6 oz) 11/14/17 0208 - - - - - 94 % - 11/14/17 0154 143/72 36.6 ?C (97.9 ?F) Oral 81 18 92 % - 11/13/17 2124 141/67 36.5 ?C (97.7 ?F) Oral 78 18 96 % - 11/13/17 1745 141/86 36.6 ?C (97.8 ?F) Oral 81 20 94 % - 11/13/17 1645 135/71 - Oral 82 18 - - 11/13/17 1348 149/79 36.7 ?C (98 ?F) Oral 90 18 90 % - 11/13/17 0941 131/58 36.3 ?C (97.4 ?F) Axillary 77 18 97 % - 11/13/17 0828 159/82 - - 80 - - - 11/13/17 0620 161/88 37.1 ?C (98.7 ?F) Oral 85 18 95 % 98.7 kg (217 lb 9.5 oz) BP 159/71 Pulse 71 Temp 36.6 ?C (97.8 ?F) (Oral) Resp 18 Ht 160 cm (5' 3) Wt 98.9 kg (218 lb 0.6 oz) SpO2 96% BMI 38.62 kg/m? Temp (24hrs), Av.6 ?C (97.9 ?F), Min:36.3 ?C (97.4 ?F), Max:37.1 ?C (98.7 ?F) INTAKE/OUTPUT Intake/Output Summary (Last 24 hours) at 11/14/17 0600 Last data filed at 11/14/17 0500 Gross per 24 hour Intake 386 ml Output 1775 ml Net -1389 ml General: Alert, oriented, cooperative.?In no acute distress. 2L NC Skin:?Chronic skin changes on bilateral LE below the knee due to lymphedema HEENT: EOM. Pupils equal, round and reactive Cardiovascular: RRR. No murmur Lungs: Mild crepitations at the bases R>L Abdomen: Soft, non-tender, no masses or organomegaly Extremities: 2+ peripheral edema,?+2 DP pulses bilaterally Neurological: Moving all extremities freely LAB DATA: CBC, Coags, BMP, Mg, Phos Recent Labs 11/14/17 0426 11/13/17 0804 11/12/17 1704 11/12/17 0518 WBC 4.40 5.65 4.69 8.20 HB 10.6* 10.1* 10.0* 9.6* HCT 32.3* 30.7* 30.9* 30.1* PLT 26* 40* 34* 28* NA 141 138 -- 138 K 3.7 4.5 -- 3.8 CHLOR 101 99 -- 99 CO2 25 24 -- 25 BUN 46* 46* -- 47* CREAT 1.06* 0.88 -- 0.96 GLUC 79 73* -- 128* CA 8.7 8.9 -- 8.6 MG 1.8 2.1 -- 1.8 P 4.0 3.5 -- 3.3 ASSESSMENT AND PLAN: Active Hospital Problems Diagnosis - Retroperitoneal hematoma Retroperitoneal bleed: s/p 7 units PRBCs s/p IR emobolization of left L3 artery at [facility] on 10/23 IR embolization of left L2 and L3 arteries on 10/26 CT abd/pel 10/31: RP bleed stable when compared to previous imaging from 10/27 LDH 1730, haptoglobin <10, Tbili 1.3- concern for hemolysis as well. Per heme, thrombocytopenia and anemia likely related to cytoxan with stressed BM Cytoxan reduced to 75 mg daily Plan: Continue to monitor HANDH and transfuse PRBC if Hb<7 or symptomatic Continue to hold Anticoagulation until approved by Vascular medicine- initially recommended holding AC for at least 14 days since last bleeding. 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 Has received stenting of IVC and iliacs along with endograft of IVC. 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 C/B extensive RP bleed s/p L2, L3 embolization. N-plate 11/09 Plan: Holding Cytoxan 75 mg in setting of worsening thrombocytopenia Continue prednisone 60 mg with bactrim ppx Appreciate hematology and VM recs Received Apheresis on 11/03, next session tentatively planned for 10/18 (heme following) Plan is to start bivalrudin trial once platelets stabilize and bridge to coumadin - CAPRICE (acute kidney injury) (HCC) CAPRICE on CKD III, 2/ contrast, now requiring dialysis First HD at [facility] on 10/25 with tunneled dialysis catheter placement followed by 2 [address] Abdomen/pelvis from 10/26 showed occlusion of B/L renal veins, outflow not appreciated- could be attributing to CAPRICE and CKD Bladder scan Plan: Nephrology following- appreciate recommendations Daily BMPs to watch K, Na and phosphorus levels Renal dosing of medication Avoid excess fluids and nephrotoxic drugs - HTN (hypertension) Mildly decreased systolic function, diastolic function indeterminate on 10/13/17 ECHO. 10/28: Run of SBP in 200s overnight (likely d/t pain), given hydralazine however still consistently in 170s-180s 10/29: Still hypertensive, required 4 doses of hydralazine overnight Switched Amlodipine 10 mg to nifedipine 30mg on 11/10, and increased Coreg from 6.25 to 25 mg BID Plan: Increased Nefidipine to 60 mg BID and keeping Coreg at current dosing, can up titrate coreg if tolerating well (HR currently 80-100) Can consider adding PRN hydralazine for SBP>180 mm Hg, - Diffuse pulmonary alveolar hemorrhage Currently stable, no new episodes Has had 6 admissions recently for acute respiratory failure requiring mechanical ventilation Cytoxan was reduced from 150 to 75 mg due to concern for BM toxicity; renally dosed Plan: Continue to monitor respiratory status Continue oxygen therapy at 2L NC Holding Cytoxan in setting of worsening thrombocytopenia Continue Prednisone 60 mg daily Switched bactrim to pentamidine for ppx Will reach out to outpatient provider regarding switch to pentamidine from bactrim, per heme recs - Moraxella catarrhalis pneumonia (HCC) Had respiratory cultures growing Moraxella catarrhalis Received ceftriaxone 10/27-11/03- 7 days therapy WBC trended down from 21 K to 12K. Currently at baseline O2 requirement but still slightly tachypneic Completed course of ceftriaxone. Plan: Continue to monitor respiratory status closely BPH per RT Incentive spirometry - Peripheral neuropathy - History of heparin-induced thrombocytopenia Avoid all heparin products. - Weakness of left leg 11/02 Left leg weakness/parasthesia Likely related to lumbar nerve compression from large retroperitoneal hematoma Neurology was following, recommended no further intervention On gabapentin renally dosed. - Right groin pain 10/27: C/o acute pain this morning, access site for embolization at [facility], no erythema or induration appreciated on exam, exquisitely TTP Groin study showed no signs of PSA, known AV fistula visualized with retrograde flow, vascular med aware- no further recs 10/28: pain less severe, no physical exam findings Repeat Leg DVT shows no pseudoaneurysm Likely due to nerve compression/RP hematoma causing compressive symtpoms S/p R groin drain placed at [facility] on 10/24 s/p L groin drain placed at [facility] during embolization on 10/26 Plan: - Pain management-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 [employer] as of transfer to [facility] - Will continue to wean dilaudid as pt tolerates, currently on Dilaudid 0.2 mg q4h PRN for pain, oxycodone PO PRN and gabapentin - IR consult for drain evaluation and removal on 11/05 MAINTENANCE: VTE PROPHYLAXIS:?IPCD NEED FOR ZUNIGA- Yes 10/23/17 LINES: Double lumen dialysis catheter 10/25/17 Dispo-?Acute rehabilitation center This note is not final until staffed by the attending physician and authenticated by responsible provider. SIGNATURE: Olga Reyez MD PATIENT NAME: Paloma Cannon DATE: November 14, 2017 TIME: 6:00 AM PAGER: [phone] RAF Terry ATTENDING NOTE: Chart reviewed, patient seen and examined on 11/14 at 2pm and fernandes elements of the history and physical were discussed in detail and confirmed with the resident team. I have reviewed the above note, examined the patient and agree with the documented findings and plan of care as listed in Dr Reyez's note. Any addendums above are in bold text. Assessment: s/p L RP bleed on 10/23 with embolization and coils to L L2 + L3 arteries, s/p numerous RBC transfusions + Hgb has stabilized Persistent thrombocytopenia despite mult platelet tranfusions + ENDPLATE last week + adj of Cytoxan to a lower dose + recent DC + dc of Bactrim on 11/12... platelet count today is 26K + Catastrophic APS as noted above, she remains off AC due to persistent thrombocytopenia Recent Moraxella catarrhalis HCAP, took Ceftriaxone 10/28 to 11/03 with resolution Remains fluid overloaded but mainly in 3rd space areas.. may be sl better w/ resumption of Demadex 20mg qAM on 11/13 CAPRICE on CKD, current Cr of 1.06, is improved over chronic baseline CKD 3, but sl worse c/w 11/13 Chronic LE edema due to chronic DVT: at baseline ? Plan: PLEX was given on 11/13 and then q 2weeks ENDPLATE given on 11/13 Transfuse 1 unit of platelets today Same meds + when the platelet count normalizes, will resume Bival to Coumadin bridge Ros Wayne MD FACP Attending, pager [phone] TYPE AND SCREEN Collected: 11/14/2017 Status: F Source: [place] 4:30 AM [facility] REPOSITORY TYPE CODE TESTS RESULT OUT OF REFERENCE UNITS RANGE LAB %ABR B ABO/RH(D) POSITIVE LAB % Antibody POS Screen Performed By: #### TSCR #### [facility] [address], [place] [address] CBC Collected: 11/14/2017 Status: F Source: [place] 4:26 AM [facility] REPOSITORY TYPE CODE TESTS RESULT OUT OF REFERENCE UNITS RANGE LAB WBC 3.70-11.00 k/uL WBC 4.40 LAB RBC 3.90-5.20 m/uL Low RBC 3.12 LAB HGB 11.5-15.5 g/dL Low Hemoglobin 10.6 LAB HCT 36.0-46.0 % Low Hematocrit 32.3 LAB MCV 80.0-100.0 fL MCV High 103.5 LAB MCH 26.0-34.0 pG MCH 34.0 LAB MCHC 30.5-36.0 g/dL MCHC 32.8 LAB RDWCV 11.5-15.0 % RDW-CV High 25.6 LAB PLTCT 150-400 k/uL Low Platelet Count 26 Result Comment: Result checked and verified No clot detected. LAB MPV 9.0-12.7 fL MPV <<DO NOT REPORT>> LAB ABSNUC <0.01 k/uL <0.01 Absolute nRBC Performed By: #### CBC, MG1, PHOS, BMP #### [facility] [address] [place] [address] MAGNESIUM Collected: 11/14/2017 Status: F Source: [place] 4:26 AM [facility] REPOSITORY TYPE CODE TESTS RESULT OUT OF REFERENCE UNITS RANGE LAB MG 1.7-2.3 mg/dL Magnesium 1.8 Performed By: #### CBC, MG1, PHOS, BMP #### [facility] [address] [address] PHOSPHORUS Collected: 11/14/2017 Status: F Source: [place] 4:26 AM [facility] REPOSITORY TYPE CODE TESTS RESULT OUT OF REFERENCE UNITS RANGE LAB PHOS 2.7-4.8 mg/dL Phosphorus 4.0 Performed By: #### CBC, MG1, PHOS, BMP #### [place] [address] BASIC METABOLIC PANL Collected: 11/14/2017 Status: F Source: [place] 4:26 AM [facility] REPOSITORY TYPE CODE TESTS RESULT OUT OF REFERENCE UNITS RANGE LAB GLU 74-99 mg/dL Glucose 79 Result Comment: The [place] [employer] (ADA) provides guidance for cutoff values for fasting glucose and random glucose. The ADA defines fasting as no caloric intake for at least 8 hours. Fas ting plasma glucose results between 100 to 125 mg/dL indicate increased risk for diabetes (prediabetes). Fasting plasma glucose results greater than or equal to 126 mg/dL meet the criteria for diagnosis of diabetes. In the absence of unequivocal hyperglycemia, results should be confirmed by repeat testing. In a patient with classic symptoms of hyperglycemia or hyperglycemic crisis, random plasma glucose results greater than or equal to 200 mg/dL meet the criteria for diagnosis of diabetes. Reference: Standards of Medical Care in Diabetes 2016, [place] [employer]. Diabetes Care. 2016.39(Suppl 1). LAB BUN 7-21 mg/dL BUN High 46 LAB CRET 0.58-0.96 mg/dL Creatinine High 1.06 LAB NA 136-144 mmol/L Sodium 141 LAB K 3.7-5.1 mmol/L Potassium 3.7 LAB CL 97-105 mmol/L Chloride 101 LAB CO2 22-30 mmol/L CO2 25 LAB AGAP 9-18 mmol/L Anion Gap 15 LAB CA 8.5-10.2 mg/dL Calcium, Total 8.7 LAB GFRAA eGFR- Amer. >60 LAB GFRNAA . eGFR-All Other Races >60 Result Comment: eGFR (Estimated GFR) Units of measure: mL/min/1.73 meters squared eGFR is derived from the reexpressed MDRD Study equation using the following parameters: serum creatinine, age, gender and race. The creatinine assay has been calibrated to be traceable to IDMS. An eGFR <60 mL/min/1.73m2 for >3 months is consistent with chronic kidney disease. Refer to KDOQI guidelines for clinical interpretation. In patients with unstable renal function, e.g. those with acute kidney injury, the eGFR may not accurately reflect actual GFR. Performed By: #### CBC, MG1, PHOS, BMP #### [facility] [address] [address] NURSING PROG Observed: 11/14/2017 Status: COMPLETED Source: [place] 2:54 AM [facility] REPOSITORY HNO ID: [id number] Author: Mark Dias (Rn), RN Service: Nursing Author Type: Registered Nurse Type: Nursing Progress Note Filed: 11/14/2017 7:55 AM Note Text: Nursing Progress Note Patient Name: Paloma Cannon Patient Location: H080 015/H080-16 Daily Note: 2121 Medicated for c/o pain, see MAR. Was reassured. Safety measures continued. Siderails up x 2 to assist w/ bed mobility and fr support. Bed in lowest possible position, locked. Call light placed within pt's reach. Was reassured. 2220 Appe ars comfortable at this time. 0040 Medicated w/ Dilaudid PRN dose for c/o pain, see MAR. Was reassured. This note was completed by: Mark Dias, RN ALLIED HEALTH Observed: 11/13/2017 Status: COMPLETED Source: [place] 3:03 PM [facility] REPOSITORY HNO ID: [id number] Author: Dary Banks (Rn), RN Service: Wound/Ostomy Author Type: Registered Nurse Type: Allied Health Filed: 11/13/2017 3:19 PM Note Text: ET/WOCN Nursing Consult Topic: ET/WOCN Consultation Note Purpose of visit: Leaking pouch. ? Outcome: Puncture site within left pannus is draining yellow serous effluent. Currently pouched, and leaking down into left groin crease. Slightly modified pouching system and pouch change complete. Supplies at the bedside. ? Next Scheduled Visit: 11/16/2017 for a scheduled pouch change. ? ? Puncture site Diameter: Slightly larger than pinpoint. Location: Within left groin / pannus Daxa-wound Skin: Dark purple bruising superior to puncture. Daxa-wound Contour: Concave. Supportive Tissue: Soft. Character of Output: Yellow serous fluid. Emptying Frequency per Day: Per nursing staff. Pouching System Removed: Per last [facility] nurses note - 1. Filled in pannus crease at 3 and 9 o'clock with Stomahesive paste, then, applied Stomahesive wedges x2 each side. Caulked seams with paste. 2. Applied 1/4 piece Hollihesive washer (inner radial slits) direclty onto skin around site. Caulked inner aperture with Stomahesive paste. 3. Kyle Premier Urostomy pouch with a [place] Adapt oval convex ring #[id number] around aperture and Stomahesive paste around aperture of convex ring. 4. Mefix at 3 and 9 o'clock. Made a slit at area where left groin crease is. Current wearing time: Less than 24 hours. Pouching System Evaluation: The leak occurred in the 3 o'clock groin crease. a more flexible low profile system may better conform to groin crease. ?? Recommendations: Skin Care: Apply Stomahesive powder to irritated/denuded skin as needed. Dust away excess powder. Pouching System: Applied: Coloplast SenSura [place] Flex flat cut to fit Barrier (09/14 to 1 01/14) (#[id number]) (red) opening cut off center, center opening covered with Hollihesive barrier, and Coloplast SenSura [place] Flex High Output transparent filtered pouch (#[id number]) (red). Pouch connected to gravity drainage system with ConvaTec marcus adapter and Hy tape. Wear Time Goal: 3-5 days. Comments: Skin is very fragile and thin with scattered bruising due to chronic steroid treatment. Supplies Provided: 2 flanges and 2 high output pouches, 8 remover wipes ? Time Increment: 1 hour ? Dary Doty BSN RN CWOCN PROCEDURE Observed: 11/13/2017 Status: COMPLETED Source: [place] 1:24 PM [facility] REPOSITORY [facility] ID: [id number] Author: Lisseth Claudio MD Service: Apheresis Author Type: Physician Type: Procedures Filed: 11/13/2017 4:46 PM Note Text: APHERESIS THERAPEUTIC PROCEDURE NOTE SERVICE DATE: 11/13/2017 SERVICE TIME: 1310 TREATMENT #: 90. Pre-treatment labs drawn: No PLAN Next treatment- To be determined. : 1990 Age: [age] year old Gender: female Patient identification confirmed patient, birthdate and MRN Apheresis Requested By: Hematology Diagnosis: Antiphospholpid antibody syndrome Treatment Procedure: Plasmapheresis Protocol: N/A LABS Recent Labs 11/13/17 0804 WBC 5.65 HB 10.1* HCT 30.7* PLT 40* BUN 46* CREAT 0.88 CA 8.9 MG 2.1 INTERVAL HISTORY: Patient reports feeling well. No questions at this time. PRE-TREATMENT BP 131/58 Pulse 77 Temp 36.3 ?C (97.4 ?F) (Axillary) Resp 18 Ht 160 cm (5' 3) Wt 98.7 kg (217 lb 9.5 oz) SpO2 97% BMI 38.55 kg/m? Treatment performed at: Unit/Bed- H080 015/H080-16 Date: 11/13/2017 Catheter Site Dressing: Dry and intact. Venous access: left red port and SC double lumen catheter, venous return: left blue port and SC double lumen catheter. PRE-MEDICATION diphenhydramine 50mg IV Time:1415 TREATMENT PARAMETER DATA Whole blood processed: 7350 ml Volume removed: 3805 ml Volume replaced: Albumin 1000 ml, NSS 500 ml and FFP 2016 ml ACD to patient: 131 ml Calcium gluconate 10%: 30 ml Extra fluids: 0 ml NSS via separate IV. Net fluid balance: + 18 ml POST-TREATMENT Vital signs: BP 174/88 HR 84 RR 18 TEMP 98.1 Labs Drawn: None At completion of treatment: Lumen flushed with 10 ml NSS and Lumen flushed with 3 ml 4% sodium citrate Patient tolerated treatment well without complications: Yes Patient remains in hospital bed. Treatment Started by Apheresis Nurse: Angella Ortiz RN Treatment Completed by Apheresis Nurse: Angella Ortiz RN DR. [facility]ED [facility] STAFF PHYSICIAN NOTE OF PERSONAL INVOLVEMENT IN CARE Ms. Cannon tolerated the treatment without any acute events. Her next plasma exchange will be in 2 weeks. Will continue to coordinate with the hematology service. I reviewed the patients labs, medications and allergies prior to proceeding with this therapeutic treatment and discussed the case and parameters with the apheresis nurse. I have reviewed this therapeutic progress note documented by the apheresis nurse. I personally participated in all pertinent aspects and fernandes components of the therapeutic treatment. I was present during the treatment. Signature: Lisseth Claudio MD November 13, 2017 4:45 PM Pager: [phone] CONSULT PROG Observed: 11/13/2017 Status: COMPLETED Source: [place] 12:44 PM [facility] REPOSITORY [facility] ID: [id number] Author: Justina Pollard) Service: Hematology Author Type: Physician Satellite Tv Technician Installer Type: Consult Progress Note Filed: 11/13/2017 3:14 PM Note Text: CONSULT PROGRESS NOTE SERVICE DATE: 11/13/2017 CONSULTING SERVICE: Hematology Subjective INTERVAL HPI: No acute events overnight Remains thrombocytopenic, received platelet yesterday for platelet count in the 20's PLEX is due today Current hospital medications: gabapentin 300 mg cap(s) (NEURONTIN) 300 mg ORAL q 8 H torsemide 20 mg tab(s) (DEMADEX) 20 mg ORAL DAILY HYDROmorphone 0.2 mg in NaCl 0.9% (DILAUDID) 0.2 mg INTRAVENOUS q 4 H PRN albuterol 2.5 mg /3 mL (0.083 %) 2.5 mg (PROVENTIL) 2.5 mg INHALATION q 4 WEEKS pentamidine 300 mg nebulizer solution (NEBUPENT) 300 mg INHALATION q 4 WEEKS NIFEdipine ER 60 mg tab(S) (PROCARDIA XL) 60 mg ORAL DAILY carvedilol 25 mg tab(s) (COREG) 25 mg ORAL/FEEDING TUBE BID w MEALS oxyCODONE IR 5-10 mg tab(s) (ROXICODONE) 5-10 mg ORAL/FEEDING TUBE q 4 H PRN predniSONE (DELTASONE) tab(s) 60 mg 60 mg ORAL/FEEDING TUBE DAILY lidocaine 5 % 1 Patch (LIDODERM) 1 Patch TRANSDERMAL DAILY lidocaine patch - REMOVE OTHER AT BEDTIME lidocaine - VERIFY PATCH OTHER q 8 H polyethylene glycol 3350 17 g packet (MIRALAX, GLYCOLAX) 17 g ORAL/FEEDING TUBE DAILY docusate sodium 100 mg cap(s) (COLACE) 100 mg ORAL BID senna 8.6 mg tab(s) (SENOKOT) 8.6 mg ORAL/FEEDING TUBE BID pantoprazole DR 40 mg tab(s) (PROTONIX) 40 mg ORAL DAILY (6 AM) ondansetron 8 mg tab(s) (ZOFRAN) 8 mg ORAL q 8 H PRN diphenhydrAMINE 50 mg (BENADRYL) 50 mg ORAL/FEEDING TUBE q 6 H PRN hydrocortisone sodium succinate (PF) 100 mg injection (Solu- CORTEF) 100 mg INTRAVENOUS q 4 H PRN diphenhydrAMINE 50 mg injection (BENADRYL) 50 mg INTRAVENOUS q 4 H PRN prochlorperazine 5 mg injection (COMPAZINE) 5 mg INTRAVENOUS q 6 H PRN 0.9% NaCl 2-10 mL 2-10 mL INTRAVENOUS PRN 0.9% NaCl 3-5 mL 3-5 mL INTRAVENOUS q 12 H dextrose 50% in water 25-50 mL syringe 12.5-25 g INTRAVENOUS PRN dextrose 40 % 15 g 15 g ORAL PRN glucagon 1 mg injection (GLUCAGEN) 1 mg SUBCUTANEOUS PRN acetaminophen 650 mg tab(s) (TYLENOL) 650 mg ORAL/FEEDING TUBE q 6 H PRN acetaminophen 650 mg suppository (TYLENOL) 650 mg RECTAL q 6 H PRN Objective PHYSICAL EXAM: BP 131/58 Pulse 77 Temp (Src) 97.4 (Axillary) Resp 18 Ht 5' 3 (1.60m) Wt 217 lb 9.5 oz (98.7kg) SpO2 97% BMI 38.55 kg/(m2). General: Alert, NAD. Heart/CV: ?Grossly RRR Lungs: CTA Abd: ?Soft, NT,ND Extremities/Skin: No rashes appreciated DATA: Component Latest Ref Rng AND Units 11/12/2017 11/12/2017 11/13/2017 5:18 AM 5:04 PM WBC 3.70 - 11.00 k/uL 8.20 4.69 5.65 RBC 3.90 - 5.20 m/uL 2.99 (L) 3.05 (L) 3.07 (L) Hemoglobin 11.5 - 15.5 g/dL 9.6 (L) 10.0 (L) 10.1 (L) Hematocrit 36.0 - 46.0 % 30.1 (L) 30.9 (L) 30.7 (L) MCV 80.0 - 100.0 fL 100.7 (H) 101.3 (H) 100.0 MCH 26.0 - 34.0 pG 32.1 32.8 32.9 MCHC 30.5 - 36.0 g/dL 31.9 32.4 32.9 RDW-CV 11.5 - 15.0 % 25.7 (H) 25.5 (H) 25.5 (H) Platelet Count 150 - 400 k/uL 28 (L) 34 (L) 40 (L) MPV 9.0 - 12.7 fL <<DO NOT REPORT>> <<DO NOT REPORT>> <<DO NOT REPORT>> Absolute nRBC <0.01 k/uL <0.01 <0.01 <0.01 Phosphorus 2.7 - 4.8 mg/dL 3.5 Impression/Recommendations 27 y/o female?with PMHx of 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 Recent admission 10/13/17-10/23/17 for hemoptysis and SOB, requiring intubation, was in MICU for management of DAH. readmitted to MICU again for ?extensive left retroperitoneal hemorrhage?s/p IR guided intervention (initially on 10/23 at [facility] and 10/26 here at [facility]. ? # Antiphospholipid antibody syndrome -recent home therapy : Prednisone 60 mg ( home dose 5 mg), Cytoxan 75 mg ( home dose 150 mg), pheresis QOW ?-continue with current dose of steroids -Cytoxan stopped on 11/09 given persistent thrombocytopenia as this might he causing myelosuppression -given N plate 2mcg/kg sq x1 on 11/09, will give an extra dose of 3mcg/kg today ( ordered) -continue to trend plt level -Agree with changing Bacrin to Pentam Inh -AC is on hold due to recent bleeding and persistent thrombocytopenia. -Pheresis is due today ? ? #Extensive left retroperitoneal hemorrhage -likely secondary to anticoagulant. Its an unfortunate case, she needs an anticoagulation for APS but bleeding episodes prohibits -sp IR intevention on 10/23 and 10/26? - Please transfuse Platelets to keep Plt >30 K. ? #Abnormal hemolysis labs - with elevated LD, elevated retic, and an undetectable hapto. Hemoglobin has been stable. - ?Direct [place] is negative -ADAMTS 13 activity resulted at 56 % speaking against TTP -Abnormal hemolysis labs likely related to resolving hematoma. SIGNATURE: Justina Pollard PA-C PATIENT NAME: Paloma Cannon DATE: November 13, 2017 TIME: 12:45 PM PAGER: [phone] PROGRESS Observed: 11/13/2017 Status: COMPLETED Source: [place] 12:11 PM [facility] REPOSITORY HNO ID: [id number] Author: Ros Wayne Service: General Internal Medicine Author Type: Physician Type: Progress Notes Filed: 11/13/2017 2:46 PM Note Text: RAF Terry PROGRESS NOTE For questions regarding this patient today please page [phone] After 5 pm on weekdays and 3pm on weekends and holidays please page documentation clerk pager [phone] SERVICE DATE: 11/13/2017 SERVICE TIME: 12:12 PM INTERVAL HISTORY: - No events overnight - patient feels the same. HDS, on 2L NC - Received 1 unit of platelets yesterday. - switched bactrim to pentamidine to avoid bactrim marrow suppresion - Patient improving with PT and able to transfer from bed to chair with walker with less assistance. Skilled for acute rehab, per PT. - pain better controlled; using less dilaudid for pain control Labs: Hgb: 9.3-->9.5-->9.7-->9.0-->10.1-->9.8-->9.5-->9.6-->10-->10.1 Creatinine: 1.10-->1.40-->1.19-->1.29-->0.96-->1.1-->0.96-->0.88 Plt: 40-->34-->28-->36-->29-->25-1u plt->34-->28-1u plt->34-->40 PLAN FOR TODAY - gabapentin 300 mg BID--> gabapentin 300 TID for pain - Apheresis today to get her back on Monday q2wks schedule - torsemide 20 mg once (home dose) - Transfuse platelets if < 30k - Appreciate hematology recommendations - Consider removing zuniga once patient is comfortable with ambulation. MEDICATIONS: Current hospital medications: gabapentin 300 mg cap(s) (NEURONTIN) 300 mg ORAL q 8 H torsemide 20 mg tab(s) (DEMADEX) 20 mg ORAL DAILY HYDROmorphone 0.2 mg in NaCl 0.9% (DILAUDID) 0.2 mg INTRAVENOUS q 4 H PRN albuterol 2.5 mg /3 mL (0.083 %) 2.5 mg (PROVENTIL) 2.5 mg INHALATION q 4 WEEKS pentamidine 300 mg nebulizer solution (NEBUPENT) 300 mg INHALATION q 4 WEEKS NIFEdipine ER 60 mg tab(S) (PROCARDIA XL) 60 mg ORAL DAILY carvedilol 25 mg tab(s) (COREG) 25 mg ORAL/FEEDING TUBE BID w MEALS oxyCODONE IR 5-10 mg tab(s) (ROXICODONE) 5-10 mg ORAL/FEEDING TUBE q 4 H PRN predniSONE (DELTASONE) tab(s) 60 mg 60 mg ORAL/FEEDING TUBE DAILY lidocaine 5 % 1 Patch (LIDODERM) 1 Patch TRANSDERMAL DAILY lidocaine patch - REMOVE OTHER AT BEDTIME lidocaine - VERIFY PATCH OTHER q 8 H polyethylene glycol 3350 17 g packet (MIRALAX, GLYCOLAX) 17 g ORAL/FEEDING TUBE DAILY docusate sodium 100 mg cap(s) (COLACE) 100 mg ORAL BID senna 8.6 mg tab(s) (SENOKOT) 8.6 mg ORAL/FEEDING TUBE BID pantoprazole DR 40 mg tab(s) (PROTONIX) 40 mg ORAL DAILY (6 AM) ondansetron 8 mg tab(s) (ZOFRAN) 8 mg ORAL q 8 H PRN diphenhydrAMINE 50 mg (BENADRYL) 50 mg ORAL/FEEDING TUBE q 6 H PRN hydrocortisone sodium succinate (PF) 100 mg injection (Solu- CORTEF) 100 mg INTRAVENOUS q 4 H PRN diphenhydrAMINE 50 mg injection (BENADRYL) 50 mg INTRAVENOUS q 4 H PRN prochlorperazine 5 mg injection (COMPAZINE) 5 mg INTRAVENOUS q 6 H PRN 0.9% NaCl 2-10 mL 2-10 mL INTRAVENOUS PRN 0.9% NaCl 3-5 mL 3-5 mL INTRAVENOUS q 12 H dextrose 50% in water 25-50 mL syringe 12.5-25 g INTRAVENOUS PRN dextrose 40 % 15 g 15 g ORAL PRN glucagon 1 mg injection (GLUCAGEN) 1 mg SUBCUTANEOUS PRN acetaminophen 650 mg tab(s) (TYLENOL) 650 mg ORAL/FEEDING TUBE q 6 H PRN acetaminophen 650 mg suppository (TYLENOL) 650 mg RECTAL q 6 H PRN HOME MEDICATIONS: cyclophosphamide (CYTOXAN) 50 mg capsule Take 150 mg by mouth once daily. diphenhydrAMINE (BENADRYL) 50 mg capsule Take 1 capsule by mouth every 6 hours as needed for Itching/Rash. gabapentin (NEURONTIN) 100 mg capsule Take 1 capsule by mouth three times daily for 7 days. ondansetron (ZOFRAN, HYDROCHLORIDE,) 8 mg tablet Take 8 mg by mouth every 8 hours as needed for Nausea/Vomiting. pantoprazole DR (PROTONIX) 40 mg tablet Take 40 mg by mouth daily at bedtime. sulfamethoxazole-trimethoprim (BACTRIM DS) 800-160 mg per tablet Take 1 tablet by mouth every Monday,Monday,Monday. fluticasone (FLONASE) 50 mcg/actuation nasal spray Use 1-2 Sprays in each nostril once daily as needed for Cold/Allergy Symptoms (starting in allergy season). senna 8.6 mg tab Take 1 tablet by mouth twice daily as needed. PHYSICAL EXAM: VITAL SIGNS Patient Vitals for the past 24 hrs: BP Temp Temp src Pulse Resp SpO2 Weight 11/13/17 0941 131/58 36.3 ?C (97.4 ?F) Axillary 77 18 97 % - 11/13/17 0828 159/82 - - 80 - - - 11/13/17 0620 161/88 37.1 ?C (98.7 ?F) Oral 85 18 95 % 98.7 kg (217 lb 9.5 oz) 11/13/17 0152 155/79 37.1 ?C (98.7 ?F) Oral 91 18 96 % - 11/12/17 1956 149/76 36.8 ?C (98.3 ?F) Oral 81 18 96 % - 11/12/17 1718 - 36.6 ?C (97.8 ?F) Oral 91 18 91 % - 11/12/17 1637 167/75 36.8 ?C (98.3 ?F) Oral 89 18 - - 11/12/17 1402 145/74 36.7 ?C (98.1 ?F) Oral 83 18 - - 11/12/17 1340 151/81 36.7 ?C (98.1 ?F) Oral 80 18 95 % - BP 131/58 Pulse 77 Temp 36.3 ?C (97.4 ?F) (Axillary) Resp 18 Ht 160 cm (5' 3) Wt 98.7 kg (217 lb 9.5 oz) SpO2 97% BMI 38.55 kg/m? Temp (24hrs), Av.8 ?C (98.2 ?F), Min:36.3 ?C (97.4 ?F), Max:37.1 ?C (98.7 ?F) INTAKE/OUTPUT Intake/Output Summary (Last 24 hours) at 11/13/17 1238 Last data filed at 11/13/17 1000 Gross per 24 hour Intake 809.4 ml Output 1425 ml Net -615.6 ml General: Alert, oriented, cooperative. In no acute distress. 2L NC Skin: Chronic skin changes on bilateral LE below the knee due to lymphedema HEENT: EOM. Pupils equal, round and reactive Cardiovascular: RRR. No murmur Lungs: Mild crepitations at the bases R>L Abdomen: Soft, non-tender, no masses or organomegaly Extremities: 2+ peripheral edema,?+2 DP pulses bilaterally Neurological: Moving all extremities freely LAB DATA: CBC, Coags, BMP, Mg, Phos Recent Labs 11/13/17 0804 11/12/17 1704 11/12/17 0518 11/11/17 0335 WBC 5.65 4.69 8.20 < > 5.57 HB 10.1* 10.0* 9.6* < > 9.5* HCT 30.7* 30.9* 30.1* < > 29.5* PLT 40* 34* 28* < > 25* NA 138 -- 138 -- 140 K 4.5 -- 3.8 -- 3.4* CHLOR 99 -- 99 -- 100 CO2 24 -- 25 -- 24 BUN 46* -- 47* -- 47* CREAT 0.88 -- 0.96 -- 1.10* GLUC 73* -- 128* -- 123* CA 8.9 -- 8.6 -- 8.3* MG 2.1 -- 1.8 -- 1.8 P 3.5 -- 3.3 -- 3.4 < > = values in this interval not displayed. ASSESSMENT AND PLAN: Active Hospital Problems Diagnosis - Retroperitoneal hematoma Retroperitoneal bleed: s/p 7 units PRBCs s/p IR emobolization of left L3 artery at [facility] on 10/23 IR embolization of left L2 and L3 arteries on 10/26 CT abd/pel 10/31: RP bleed stable when compared to previous imaging from 10/27 LDH 1730, haptoglobin <10, Tbili 1.3- concern for hemolysis as well. Per heme, thrombocytopenia and anemia likely related to cytoxan with stressed BM Cytoxan reduced to 75 mg daily Plan: Continue to monitor HANDH and transfuse PRBC if Hb<7 or symptomatic Continue to hold Anticoagulation until approved by Vascular medicine- initially recommended holding AC for at least 14 days since last bleeding. 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 Has received stenting of IVC and iliacs along with endograft of IVC. 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 C/B extensive RP bleed s/p L2, L3 embolization. N-plate 11/09 Plan: Holding Cytoxan 75 mg in setting of worsening thrombocytopenia Continue prednisone 60 mg with bactrim ppx Appreciate hematology and VM recs Received Apheresis on 11/03, next session tentatively planned for 10/18 (heme following) Plan is to start bivalrudin trial once platelets stabilize and bridge to coumadin - CAPRICE (acute kidney injury) (HCC) CAPRICE on CKD III, 2/2 contrast, now requiring dialysis First HD at [facility] on 10/25 with tunneled dialysis catheter placement followed by [address] Abdomen/pelvis from 10/26 showed occlusion of B/L renal veins, outflow not appreciated- could be attributing to CAPRICE and CKD Bladder scan Plan: Nephrology following- appreciate recommendations Daily BMPs to watch K, Na and phosphorus levels Renal dosing of medication Avoid excess fluids and nephrotoxic drugs - HTN (hypertension) Mildly decreased systolic function, diastolic function indeterminate on 10/13/17 ECHO. 10/28: Run of SBP in 200s overnight (likely d/t pain), given hydralazine however still consistently in 170s-180s 10/29: Still hypertensive, required 4 doses of hydralazine overnight Switched Amlodipine 10 mg to nifedipine 30mg on 11/10, and increased Coreg from 6.25 to 25 mg BID Plan: Increased Nefidipine to 60 mg BID and keeping Coreg at current dosing, can up titrate coreg if tolerating well (HR currently 80-100) Can consider adding PRN hydralazine for SBP>180 mm Hg, - Diffuse pulmonary alveolar hemorrhage Currently stable, no new episodes Has had 6 admissions recently for acute respiratory failure requiring mechanical ventilation Cytoxan was reduced from 150 to 75 mg due to concern for BM toxicity; renally dosed Plan: Continue to monitor respiratory status Continue oxygen therapy at 2L NC Holding Cytoxan in setting of worsening thrombocytopenia Continue Prednisone 60 mg daily Switched bactrim to pentamidine for ppx Will reach out to outpatient provider regarding switch to pentamidine from bactrim, per heme recs - Moraxella catarrhalis pneumonia (HCC) Had respiratory cultures growing Moraxella catarrhalis Received ceftriaxone 10/27-11/03- 7 days therapy WBC trended down from 21 K to 12K. Currently at baseline O2 requirement but still slightly tachypneic Completed course of ceftriaxone. Plan: Continue to monitor respiratory status closely BPH per RT Incentive spirometry - Peripheral neuropathy - History of heparin-induced thrombocytopenia Avoid all heparin products. - Weakness of left leg 11/02 Left leg weakness/parasthesia Likely related to lumbar nerve compression from large retroperitoneal hematoma Neurology was following, recommended no further intervention On gabapentin renally dosed. - Right groin pain 10/27: C/o acute pain this morning, access site for embolization at [facility], no erythema or induration appreciated on exam, exquisitely TTP Groin study showed no signs of PSA, known AV fistula visualized with retrograde flow, vascular med aware- no further recs 10/28: pain less severe, no physical exam findings Repeat Leg DVT shows no pseudoaneurysm Likely due to nerve compression/RP hematoma causing compressive symtpoms S/p R groin drain placed at [facility] on 10/24 s/p L groin drain placed at [facility] during embolization on 10/26 Plan: - Pain management-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 [employer] as of transfer to [facility] - Will continue to wean dilaudid as pt tolerates, currently on Dilaudid 0.2 mg q4h PRN for pain, oxycodone PO PRN and gabapentin - IR consult for drain evaluation and removal on 11/05 MAINTENANCE: VTE PROPHYLAXIS: IPCD NEED FOR ZUNIGA- Yes 10/23/17 LINES: Double lumen dialysis catheter 10/25/17 Dispo- Acute rehabilitation center This note is not final until staffed by the attending physician and authenticated by responsible provider. SIGNATURE: Olga Reyez MD PATIENT NAME: Paloma Cannon DATE: November 13, 2017 TIME: 12:12 PM PAGER: [phone] [facility] ATTENDING NOTE: Chart reviewed, patient seen and examined on 11/13 at 8:30am + 1pm and fernandes elements of the history and physical were discussed in detail and confirmed with the resident team. I have reviewed the above note, examined the patient and agree with the documented findings and plan of care as listed in Dr Reyez's note. Any addendums above are in bold text. Assessment: s/p L RP bleed, s/p numerous RBC transfusions + Hgb has stabilized + pain control is improving; she remains off of AC due to persistent thrombocytopenia + Persistent thrombocytopenia despite mult platelet tranfusions + ENDPLATE last week + adj of Cytoxan to a lower dose + recent DC + dc of Bactrim on 11/12... etiol still not certain, no evidence of TTP or DIC + Catastrophic APS as noted above, she remains off AC !!! Recent Moraxella catarrhalis HCAP, took Ceftriaxone 10/28 to 11/03 with resolution Remains fluid overloaded but mainly in 3rd space areas CAPRICE on CKD, current Cr of 0.88 is improved over chronic baseline CKD 3 Chronic LE edema due to chronic DVT, at baseline Plan: PLEX today and then q 2weeks Same meds except: - resume Demadex 20mg qAM, will adjust as needed - continue Carvedilol + Procardia for BP control - as renal function has improved, will increase GabaP to 300mg TID + when the platelet count normalizes, will resume Bival to Coumadin bridge Ros Wayne MD FACP Attending, pager [phone] THERAPY NT Observed: 11/13/2017 Status: COMPLETED Source: [place] 10:52 AM [facility] REPOSITORY O ID: [id number] Author: Indra Woods (Rn Interventional) Service: Physical Therapy Author Type: Ancillary Specialist Type: Therapy (PT/OT/Speech/Resp) Filed: 11/13/2017 11:04 AM Note Text: Attestation signed by Brenda Meraz (Pt) at 11/13/2017 1:01 PM I reviewed and agree with the assessment as documented above. SIGNATURE: Brenda Meraz PT DATE: November 13, 2017 TIME: 1:00 PM Physical Therapy Treatment SERVICE DATE: 11/13/2017 SERVICE TIME: 0933 to 1043 ROOM: [place] [address] Recommended Discharge Disposition: Acute Rehab Justification For Post Acute Needs: Anticipate that patient will require daily (5x/wk) skilled therapy in a post-acute facility setting at the time of acute hospital discharge;Willing to participate;Motivated;Anticipate patient will tolerate 3 hours of daily therapy at the time of admission to post-acute setting;Good family support Anticipated Discharge Needs: Undetermined PT Recommendations to Nursing: With assist of 1 person;Transfer to/from chair;OOB for Meals PT 6 Clicks Score: 12 Precautions/Activity Restrictions: Fall Risk;Lines/Tubes/Drains ASSESSMENT : Patient progressing slowly with functional mobility. Patient able to transfer from bed to/from chair with walker with less assist from moderate assist of 1 and minimal assist of 1 with cues and assist for walker management, foot placement, knee extension, forward gaze and balance. Patient would benefit from Acute Rehab to address current functional deficits. ? Patient Disposition at Start of Session: Supine in Bed Patient Disposition at End of Session: Supine in Bed;Call Wagoner in Reach Tolerated Full Session Physical Therapy Problem List: Cognitive Deficit;Education Deficit;Decreased Activity Tolerance;Decreased Strength;Functional Mobility Impairment Patient /Caregiver Goals: Go Home Goals for Plan of Care: Rolling with: Independent Transfer supine to/from sit with: Independent Transfer sit to/from stand with: Contact Guard Assistance Ambulate with: Contact Guard Assistance Distance: 10 Device: Wheeled Walker Progress Toward Goals: Progressing as expected Rehab Potential: Good PLAN: Treatment Frequency (times per week): 2 Treatment Duration (number): 2 Weeks Treatment Interventions: Education;Energy Conservation Training;Strengthening;Functional Mobility Training;Balance Training Plan of Care developed with: Patient TREATMENT INTERVENTIONS: Therapy Diagnosis: Reduced mobility-other;Muscle Weakness (generalized);Unsteadiness on feet Interventions Provided: Gait Training (19872);Therapeutic Activity (86838);Therapeutic Exercise (97259) Therapeutic Exercise (35970) Treatment Minutes: 23 2 units Skilled Intervention(s): Patient instructed in and performed supine exercises for 20?rep: AP, ?QS for 3 second hold, heelslides, SAQ, hip abduction; seated: 20 reps: LAQ, marching, hip abduction?with minimal?verbal and tactile cues for pacing and proper technique. Patient required AAROM for heelslides, hip abduction and marching. Educated patient in reasoning for each exercise. ? Therapeutic Activity (94062) Treatment Minutes: 28 2 units Skilled Intervention(s): Instructed and assisted patient in log roll technique- using bed rail Instructed and assisted patient in supine to sit pushing with upper extremities to sit up- with HOB raised Instructed and assisted patient in sit to supine using safe, effective technique- assist with BLE, patient able to move trunk using bed rail Education with importance of OOB activities and pacing activity. Patient sat EOB for 15 mins for core strengthening and dynamic activity including reaching outside base of support. Transfer training from bed to/from chair with walker with cues for walker management, balance, foot placement, trunk alignment and body positioning. ?Extra time for lines and tubes management. Gait Training (74425) Treatment Minutes: 19 1 unit Skilled Intervention(s): Instruction in sit to stand technique with proper hand placement and body positioning at edge of bed/chair with assist . Instruction in stand to sit technique with LE's touching chair/bed and reaching back for surface, Instruction in correction of gait deviations, Instruction in use of equipment, cues for sequence and pattern and walker management. Patient required extra time due fatigue and increased swelling in both legs. ? Total Timed Code Treatment Minutes: 70 Total Treatment Time (minutes): 70 FUNCTIONAL G CODE: PT 6 Clicks Score: 12 (11/13/17 0933) Mobility: Walking and Moving Around Current Status (G8978): CL (11/02/17 1015) Mobility: Walking and Moving Around Goal Status (G8979): CK (11/02/17 1015) Based on clinical assessment and the score on the 6 Clicks Functional Assessment Tool, the G code and corresponding severity modifiers are documented above. SUBJECTIVE: Current Hospital Course: Chart reviewed and no significant medical updates relevant to therapy were noted Patient Report: Patient stated wasn't able to stand with staff yesterday. 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 Entry To Home: No Stairs Number Of Stairs To Bed/Bath: 0 Tub/Shower Type: walk in shower Equipment Owned: Commode-Raised;Grab Bars-Shower;Grab Bars-Toilet;Shower Chair;Home Oxygen Prior Functional Level: Required Assistance Assistance Required With: Cleaning;Laundry;Meals;Shopping;Transportation Prior Wound Care: Other: See Comment (unable to don compression stockings (I)) OBJECTIVE: CURRENT FUNCTIONAL STATUS: Current Functional Mobility Assist Level Additional Information Rolling Contact Guard Assistance Supine to Sit Contact Guard Assistance (using bed rail) Sit to Supine Moderate Assistance (BLE) Scooting Contact Guard Assistance Sit to Stand Moderate Assistance ( x 2) Stand to Sit Moderate Assistance (x 2) Bed to Chair Moderate Assistance (x 1 and min assist of 1) Toilet/Commode Gait Moderate Assistance Gait Device: Wheeled Walker;With Wheelchair Follow Gait Distance (feet): 3', 4' x 2, 8' Stairs Curb Step Car Transfer General Gait Deviations: Delmy decreased;Lateral sway increased;Wide base of support;Step length decreased;Non-functional gait speed Balance: Static Sitting;Dynamic Sitting;Static Standing;Dynamic Standing Static Sitting Balance: Stand By Assistance Dynamic Sitting Balance: Contact Guard Assistance Static Standing Balance: Moderate Assistance ( x2 initially then moderate assist of 1) Dynamic Standing Balance: Moderate Assistance (o) Please see discipline specific clinical documentation flowsheet for complete details for this therapy evaluation/treatment. SIGNATURE: Indra Woods PTA PATIENT NAME: Paloma Cannon DATE: November 13, 2017 TIME: 10:52 AM PAGER/CONTACT #: [phone] CBC Collected: 11/13/2017 Status: F Source: [place] 8:04 AM [facility] REPOS[facility] TYPE CODE TESTS RESULT OUT OF REFERENCE UNITS RANGE LAB WBC 3.70-11.00 k/uL WBC 5.65 LAB RBC 3.90-5.20 m/uL Low RBC 3.07 LAB HGB 11.5-15.5 g/dL Low Hemoglobin 10.1 LAB HCT 36.0-46.0 % Low Hematocrit 30.7 LAB MCV 80.0-100.0 fL MCV 100.0 LAB MCH 26.0-34.0 pG MCH 32.9 LAB MCHC 30.5-36.0 g/dL MCHC 32.9 LAB RDWCV 11.5-15.0 % RDW-CV High 25.5 LAB PLTCT 150-400 k/uL Low Platelet Count 40 Result Comment: Result checked and verified No clot detected. LAB MPV 9.0-12.7 fL MPV <<DO NOT REPORT>> LAB ABSNUC <0.01 k/uL <0.01 Absolute nRBC Performed By: #### CBC, MG1, PHOS, BMP #### [facility] [address] [place] [address] MAGNESIUM Collected: 11/13/2017 Status: F Source: [place] 8:04 [facility] REPOSITORY TYPE CODE TESTS RESULT OUT OF REFERENCE UNITS RANGE LAB MG 1.7-2.3 mg/dL Magnesium 2.1 Result Comment: Results may be falsely increased due to interference by hemolysis. Suggest reorder as clinically indicated. Performed By: #### CBC, MG1, PHOS, BMP #### [facility] [address] [place] [address] PHOSPHORUS Collected: 11/13/2017 Status: F Source: [place] 8:04 [facility] REPOSITORY TYPE CODE TESTS RESULT OUT OF REFERENCE UNITS RANGE LAB PHOS 2.7-4.8 mg/dL Phosphorus 3.5 Result Comment: Results may be falsely increased due to interference by hemolysis. Suggest reorder as clinically indicated. Performed By: #### CBC, MG1, PHOS, BMP #### [place] [address] BASIC METABOLIC PANL Collected: 11/13/2017 Status: F Source: [place] 8:04 [facility] REPOSITORY TYPE CODE TESTS RESULT OUT OF REFERENCE UNITS RANGE LAB GLU 74-99 mg/dL Low Glucose 73 Result Comment: The [place] [employer] (ADA) provides guidance for cutoff values for fasting glucose and random glucose. The ADA defines fasting as no caloric intake for at least 8 hours. Fas ting plasma glucose results between 100 to 125 mg/dL indicate increased risk for diabetes (prediabetes). Fasting plasma glucose results greater than or equal to 126 mg/dL meet the criteria for diagnosis of diabetes. In the absence of unequivocal hyperglycemia, results should be confirmed by repeat testing. In a patient with classic symptoms of hyperglycemia or hyperglycemic crisis, random plasma glucose results greater than or equal to 200 mg/dL meet the criteria for diagnosis of diabetes. Reference: Standards of Medical Care in Diabetes 2016, [place] [employer]. Diabetes Care. 2016.39(Suppl 1). LAB BUN 7-21 mg/dL BUN High 46 LAB CRET 0.58-0.96 mg/dL Creatinine 0.88 LAB NA 136-144 mmol/L Sodium 138 LAB K 3.7-5.1 mmol/L Potassium 4.5 Result Comment: Results may be falsely increased due to interference by hemolysis. Suggest reorder as clinically indicated. LAB CL 97-105 mmol/L Chloride 99 LAB CO2 22-30 mmol/L CO2 24 LAB AGAP 9-18 mmol/L Anion Gap 15 LAB CA 8.5-10.2 mg/dL Calcium, Total 8.9 LAB GFRAA eGFR- Amer. >60 LAB GFRNAA . eGFR-All Other Races >60 Result Comment: eGFR (Estimated GFR) Units of measure: mL/min/1.73 meters squared eGFR is derived from the reexpressed MDRD Study equation using the following parameters: serum creatinine, age, gender and race. The creatinine assay has been calibrated to be traceable to IDMS. An eGFR <60 mL/min/1.73m2 for >3 months is consistent with chronic kidney disease. Refer to KDOQI guidelines for clinical interpretation. In patients with unstable renal function, e.g. those with acute kidney injury, the eGFR may not accurately reflect actual GFR. Performed By: #### CBC, MG1, PHOS, BMP #### [facility] [address] [place], [place] [address] NURSING PROG Observed: 11/12/2017 Status: COMPLETED Source: [place] 8:27 PM [facility] REPOSITORY HNO ID: [id number] Author: Mark Dias (Rn), RN Service: Nursing Author Type: Registered Nurse Type: Nursing Progress Note Filed: 11/13/2017 8:18 AM Note Text: Nursing Progress Note Patient Name: Paloma Cannon Patient Location: H080 015/H080-16 Daily Note: 2026 Medicated for c/o pain, see MAR. Was reassured. Safety measures continued. Siderails up x 2 to assist w/ bed mobility and fr support. Bed in lowest possible position, locked. Call light placed within pt's reach. Was reassured. 2229 Medicated for c/o pain, see MAR. 599 Medicated Again for pain, see MAR. This note was completed by: Mark Dias RN PROGRESS Observed: 11/12/2017 Status: COMPLETED Source: [place] 7:47 PM [facility] REPOSITORY HNO ID: [id number] Author: Edel Roman (Rn), RN Service: Nursing Author Type: Registered Nurse Type: Progress Notes Filed: 11/12/2017 7:48 PM Note Text: Nursing Progress Note Vital Ict Development Manager Assessment Note Patient Name: Paloma Cannon Patient Location: [place] [address]/[facility]- Patient Vitals in the past 4 hrs: 11/12/17 1718, Temp:36.6 ?C (97.8 ?F), Temp src:Oral, Pulse:91, Resp:18, SpO2:91 % 11/12/17 1637, BP:167/75, Temp:36.8 ?C (98.3 ?F), Temp src:Oral, Pulse:89, Resp:18 Status Change Related to: Issues (See Nursing Clinical Assessment For Details) The Following People Were Notified: Caregiver/Provider: See Documentation Related to: Additional Comments : This is patient baseline, Dr. Hidalgo aware This note was completed by: Edel Roman RN CBC Collected: 11/12/2017 Status: F Source: [place] 5:04 PM [facility] REPOSITORY TYPE CODE TESTS RESULT OUT OF REFERENCE UNITS RANGE LAB WBC 3.70-11.00 k/uL WBC 4.69 LAB RBC 3.90-5.20 m/uL Low RBC 3.05 LAB HGB 11.5-15.5 g/dL Low Hemoglobin 10.0 LAB HCT 36.0-46.0 % Low Hematocrit 30.9 LAB MCV 80.0-100.0 fL MCV High 101.3 LAB MCH 26.0-34.0 pG MCH 32.8 LAB MCHC 30.5-36.0 g/dL MCHC 32.4 LAB RDWCV 11.5-15.0 % RDW-CV High 25.5 LAB PLTCT 150-400 k/uL Low Platelet Count 34 Result Comment: Result checked and verified No clot detected. LAB MPV 9.0-12.7 fL MPV <<DO NOT REPORT>> LAB ABSNUC <0.01 k/uL <0.01 Absolute nRBC Performed By: #### CBC #### [facility] [address], [place] [address] ALLIED HEALTH Observed: 11/12/2017 Status: COMPLETED Source: [place] 2:52 PM [facility] REPOSITORY HNO ID: [id number] Author: Luci Hanson (Rn), RN Service: Wound/Ostomy Author Type: Registered Nurse Type: Allied Health Filed: 11/12/2017 3:04 PM Note Text: ET/WOCN Nursing Consult Topic: ET/WOCN Consultation Note Purpose of visit: Leaking pouch. Outcome: Puncture site within left pannus is draining yellow serous effluent. Currently pouched, and leaking down into left groin crease. Slightly modified pouching system and pouch change complete. Supplies at the bedside. Plan is to return 11/17/2017, for a scheduled pouch change. Next Scheduled Visit: 11/17/2017, for a scheduled pouch change. Puncture site Diameter: slightly larger than pinpoint. Location: Within left pannus Daxa-wound Skin: Other: Dark purple bruising superior to puncture Daxa-wound contour: Concave Supportive Tissue: Soft Character of output: yellow serous Emptying frequency per day: per nursing staff Current pouching system: Removed- Kyle Hollihesive wedge at 3 and 9 o'clock; 2x2 Hollihesive washer, cut to 7/8 x 1 (inner radial slits), caulk seams with stomahesive paste, [place] Premier Urostomy Pouch (outer radial slits), Adapt Oval Convex Ring ([id number] small), connected to gravity drainage, mefix tape. Current wearing time: 3 days Pouching system evaluation: Undermining with leak into left groin crease. Recommendations: Skin Care: Apply Stomahesive powder to irritated/denuded skin as needed. Dust away excess powder. Pouching System: Applied: 1. Filled in pannus crease at 3 and 9 o'clock with Stomahesive paste, then, applied Stomahesive wedges x2 each side. Caulked seams with paste. 2. Applied 1/4 piece Hollihesive washer (inner radial slits) direclty onto skin around site. Caulked inner aperture with Stomahesive paste. 3. [place] Premier Urostomy pouch with a Kyle Adapt oval convex ring #[id number] around aperture and Stomahesive paste around aperture of convex ring. 4. Mefix at 3 and 9 o'clock. Made a slit at area where left groin crease is. Wear Time: 3-7 days Time Increment: 45 minutes Luci STEVE, RN, CWOCN CITRATED PLT COUNT Collected: 11/12/2017 Status: F Source: [place] 8:52 AM [facility] REPOSITORY TYPE CODE TESTS RESULT OUT OF REFERENCE UNITS RANGE LAB PLTCIT 150-400 K/uL Low Citrated Plt 22 Count Result Comment: Result checked and verified No clot detected. Reviewed Sodium Citrate Sample. Performed By: #### CITPLT #### [facility] [address] [place], [place] [address] PROGRESS Observed: 11/12/2017 Status: COMPLETED Source: [place] 7:03 AM [facility] REPOSITORY HNO ID: [id number] Author: Edson Mohr Service: General Internal Medicine Author Type: Physician Type: Progress Notes Filed: 11/12/2017 2:59 PM Note Text: DEPARTMENT OF INTERNAL MEDICINE: PROGRESS NOTE PRIMARY TEAM: [facility] Terry Weekdays 7 am to 5 pm/Weekend 7 am to 3 pm: Page [phone] ([place]) Weekdays 5 pm to 7 am/Weekend 3 pm to 7 am: [employer] Pager [phone] PATIENT NAME: Paloma Cannon BRIEF PLAN FOR TODAY: - Check citrated platelet count-->22-->transfusing 1 unit platelet - Transfuse platelets if < 30k - Appreciate hematology recommendations - Continue current regimen (Goal SBP 140-150) - Will need to discuss decreasing dose of dilaudid with same interval and encourage oxycodone use for pain - IV lasix 20 mg once - Strict I/O - Consider removing zuniga once patient is comfortable with ambulation. - Switch from bactrim to pentamidine INTERVAL HPI: No acute events overnight. Continues to have a drop in the platelet count. Subjectively feels the same. Pain is better controlled. Transfused with 1 unit of platelet on 11/11/2017--> < 30-->34-->28-->22 Labs: Hgb: 9.3-->9.5-->9.7-->9.0-->10.1-->9.8-->9.5-->9.6 Creatinine: 1.10-->1.40-->1.19-->1.29-->0.96-->1.1-->0.96 Plt: 40-->34-->28-->36-->29-->25-->34-->28 PHYSICAL EXAM: BP 159/86 Pulse 99 Temp 36.9 ?C (98.5 ?F) (Oral) Resp 20 Ht 160 cm (5' 3) Wt 91.4 kg (201 lb 8 oz) SpO2 94% BMI 35.69 kg/m? General: Alert and oriented, no apparent distress Heart: Regular rate and rhythm, s1s2, no murmurs rubs or gallops Lungs: Clear to auscultation bilaterally Abdomen: Positive bowel sounds, soft, nontender, nondistended Extremities: 2+ peripheral edema Neuro: Moving all extremities freely MEDICATIONS: Current hospital medications: NIFEdipine ER 60 mg tab(S) (PROCARDIA XL) 60 mg ORAL DAILY HYDROmorphone 0.4 mg in NaCl 0.9% (DILAUDID) 0.4 mg INTRAVENOUS q 4 H PRN carvedilol 25 mg tab(s) (COREG) 25 mg ORAL/FEEDING TUBE BID w MEALS oxyCODONE IR 5-10 mg tab(s) (ROXICODONE) 5-10 mg ORAL/FEEDING TUBE q 4 H PRN predniSONE (DELTASONE) tab(s) 60 mg 60 mg ORAL/FEEDING TUBE DAILY calcium gluconate 3 g in NaCl 0.9% 1,000 mL 3 g INTRAVENOUS APHERESIS albumin (5%) 50 g infusion 1,000 mL INTRAVENOUS APHERESIS sodium citrate 4% 3-6 mL catheter lock 3-6 mL INTRALUMINAL APHERESIS PRN lidocaine 5 % 1 Patch (LIDODERM) 1 Patch TRANSDERMAL DAILY lidocaine patch - REMOVE OTHER AT BEDTIME lidocaine - VERIFY PATCH OTHER q 8 H gabapentin 300 mg cap(s) (NEURONTIN) 300 mg ORAL q 12 H polyethylene glycol 3350 17 g packet (MIRALAX, GLYCOLAX) 17 g ORAL/FEEDING TUBE DAILY docusate sodium 100 mg cap(s) (COLACE) 100 mg ORAL BID senna 8.6 mg tab(s) (SENOKOT) 8.6 mg ORAL/FEEDING TUBE BID pantoprazole DR 40 mg tab(s) (PROTONIX) 40 mg ORAL DAILY (6 AM) ondansetron 8 mg tab(s) (ZOFRAN) 8 mg ORAL q 8 H PRN diphenhydrAMINE 50 mg (BENADRYL) 50 mg ORAL/FEEDING TUBE q 6 H PRN sulfamethoxazole-trimethoprim 400-80 mg 2 tablet (BACTRIM,SEPTRA) 2 tablet ORAL/FEEDING TUBE -- hydrocortisone sodium succinate (PF) 100 mg injection (Solu- CORTEF) 100 mg INTRAVENOUS q 4 H PRN diphenhydrAMINE 50 mg injection (BENADRYL) 50 mg INTRAVENOUS q 4 H PRN prochlorperazine 5 mg injection (COMPAZINE) 5 mg INTRAVENOUS q 6 H PRN 0.9% NaCl 2-10 mL 2-10 mL INTRAVENOUS PRN 0.9% NaCl 3-5 mL 3-5 mL INTRAVENOUS q 12 H dextrose 50% in water 25-50 mL syringe 12.5-25 g INTRAVENOUS PRN dextrose 40 % 15 g 15 g ORAL PRN glucagon 1 mg injection (GLUCAGEN) 1 mg SUBCUTANEOUS PRN acetaminophen 650 mg tab(s) (TYLENOL) 650 mg ORAL/FEEDING TUBE q 6 H PRN acetaminophen 650 mg suppository (TYLENOL) 650 mg RECTAL q 6 H PRN FLUID BALANCE: Intake/Output Summary (Last 24 hours) at 11/12/17 0703 Last data filed at 11/12/17 0646 Gross per 24 hour Intake 480 ml Output 1025 ml Net -545 ml DATA: LABS: CBC, Coags, BMP, Mg, Phos Recent Labs 11/12/17 0518 11/11/17 1517 11/11/17 0335 11/10/17 0336 WBC 8.20 5.54 5.57 6.21 HB 9.6* 10.2* 9.5* 9.8* HCT 30.1* 31.6* 29.5* 29.8* PLT 28* 34* 25* 29* NA 138 -- 140 135* K 3.8 -- 3.4* 3.9 CHLOR 99 -- 100 95* CO2 25 -- 24 27 BUN 47* -- 47* 56* CREAT 0.96 -- 1.10* 0.96 GLUC 128* -- 123* 91 CA 8.6 -- 8.3* 8.8 MG 1.8 -- 1.8 1.9 P 3.3 -- 3.4 3.3 Liver Function, Amylase, AND Lipase ASSESSMENT AND PLAN: - Retroperitoneal hematoma ? ? Retroperitoneal bleed: s/p 7 units PRBCs s/p IR emobolization of left L3 artery at [facility] on 10/23 IR embolization of left L2 and L3 arteries on 10/26 CT abd/pel 10/31: RP bleed stable when compared to previous imaging from 10/27 LDH 1730, haptoglobin <10, Tbili 1.3- concern for hemolysis as well. Per heme, thrombocytopenia and anemia likely related to cytoxan with stressed BM Cytoxan reduced to 75 mg daily--> held on 11/09/2017 ? Plan: Continue to monitor HANDH and transfuse PRBC if Hb<7 or symptomatic Continue to hold Anticoagulation until approved by Vascular medicine- initially recommended holding AC for at least 14 days since last bleeding. (Hb stabilized around 11/01) Will consider AC once platelets are stable ? ? - Anti-phospholipid antibody syndrome (HCC) ? ? 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 Has received stenting of IVC and iliacs along with endograft of IVC. 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 C/B extensive RP bleed s/p L2, L3 embolization. ? Plan: Continue Cytoxan 75 mg(held from 11/09/2017d/t thrombocytopenia) and prednisone 60 mg with pentamidine ppx Appreciate hematology and recs Received Apheresis on 10/31 and 11/03 Hematology is following THORPE evaluation sent-->negative ? - CAPRICE (acute kidney injury) (HCC) ? ? CAPRICE on CKD III, 2/2 contrast, now requiring dialysis First HD at [facility] on 10/25 with tunneled dialysis catheter placement followed by [address] Abdomen/pelvis from 10/26 showed occlusion of B/L renal veins, outflow not appreciated- could be attributing to CAPRICE and CKD Bladder scan 10/29- UOP improving Plan: Nephrology following- appreciate recommendations Daily BMPs to watch K, Na and phosphorus levels Renal dosing of medication Monitor off lasix given the uptrend in creatinine to 1.40 on 11/07/2017 Creatinine downtrended to 1.29?on 11/09/2017--> 0.96 on 11/10/2017 Estimated Creatinine Clearance: 93.7 mL/min (based on SCr of 0.96 mg/dL). ? - HTN (hypertension) ? ? Mildly decreased systolic function, diastolic function indeterminate on 10/13/17 ECHO. 10/28: Run of SBP in 200s overnight (likely d/t pain), given hydralazine however still consistently in 170s-180s 10/29: Still hypertensive, required 4 doses of hydralazine overnight Currently on Amlodipine 10 mg and Coreg 6.25 mg BID ? Plan: Switched to Nifedipine from Amlodipine, will continue carvedilol for now. uptitrate as tolerated Ok for SBP around 140-150 mmHg ? - Diffuse pulmonary alveolar hemorrhage ? ? Currently stable, no new episodes Has had 6 admissions recently for acute respiratory failure requiring mechanical ventilation Cytoxan was reduced from 150 to 75 mg due to concern for BM toxicity ? Plan: Continue to monitor respiratory status Continue oxygen therapy at 2L NC Continue Cytoxan 75 mg QD renally dosed--> held from 11/09/2017 Continue Prednisone 60 mg daily with pentamidine ppx ? - Moraxella catarrhalis pneumonia (HCC) ? ? Had respiratory cultures growing Moraxella catarrhalis Received ceftriaxone 10/27-11/03- 7 days therapy WBC trended down from 21 K to 12K. Currently at baseline O2 requirement but still slightly tachypneic Ceftriaxone discontinued after 7 days of treatment Plan: Continue to monitor respiratory status closely BPH per RT Incentive spirometry ? - Peripheral neuropathy - History of heparin-induced thrombocytopenia ? ? Avoid all heparin products. ? - Weakness of left leg ? ? 11/02 Left leg weakness/parasthesia Likely related to lumbar nerve compression from large retroperitoneal hematoma Neurology was following, recommended no further intervention On gabapentin ? - Right groin pain ? ? 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 FRED STONE, SR. HOSPITAL STAFF PHYSICIAN NOTE OF PERSONAL INVOLVEMENT IN CARE ? I have reviewed the progress note?obtained and documented by the resident?and I personally participated in the fernandes components. I have discussed the case and management of the patient's care. The following comments revise or confirm relevant fernandes components of their note. ? ?IMPRESSION:?This is a 27 year old female catastrophic APS complicated by PE/DVT, DAH , HIT was on intermediate card tender coumadin, cytoxan , prednisone and pheresis. Recent admission for DAH. Discharged on ?fondaparinux?7.5mg daily? 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 Clinically stable Persistent thrombocytopenia despite transfusion stopping cytoxan and a dose of Nplate. Hgb stable, ? PLAN:?as delineated above Transfuse platelets Follow platelet count Agree with switching bactrim to pentamidine for PJP prophylaxis Hematology planing pheresis session to [facility] Continue to hold anticoagulation for now until ?thrombocytopenia improves and stable Edson Mohr MD November 12, 2017 2:59 PM CBC Collected: 11/12/2017 Status: F Source: [place] 5:18 AM [facility] REPOSITORY TYPE CODE TESTS RESULT OUT OF REFERENCE UNITS RANGE LAB WBC 3.70-11.00 k/uL WBC 8.20 LAB RBC 3.90-5.20 m/uL Low RBC 2.99 LAB HGB 11.5-15.5 g/dL Low Hemoglobin 9.6 LAB HCT 36.0-46.0 % Low Hematocrit 30.1 LAB MCV 80.0-100.0 fL MCV High 100.7 LAB MCH 26.0-34.0 pG MCH 32.1 LAB MCHC 30.5-36.0 g/dL MCHC 31.9 LAB RDWCV 11.5-15.0 % RDW-CV High 25.7 LAB PLTCT 150-400 k/uL Low Platelet Count 28 Result Comment: Result checked and verified No clot detected. LAB MPV 9.0-12.7 fL MPV <<DO NOT REPORT>> LAB ABSNUC <0.01 k/uL <0.01 Absolute nRBC Performed By: #### CBC, MG1, PHOS, BMP #### [facility] [address] [place], [place] [address] MAGNESIUM Collected: 11/12/2017 Status: F Source: [place] 5:18 AM [facility] REPOSITORY TYPE CODE TESTS RESULT OUT OF REFERENCE UNITS RANGE LAB MG 1.7-2.3 mg/dL Magnesium 1.8 Performed By: #### CBC, MG1, PHOS, BMP #### [facility] [address] [place], [place] [address] PHOSPHORUS Collected: 11/12/2017 Status: F Source: [place] 5:18 AM [facility] REPOSITORY TYPE CODE TESTS RESULT OUT OF REFERENCE UNITS RANGE LAB PHOS 2.7-4.8 mg/dL Phosphorus 3.3 Performed By: #### CBC, MG1, PHOS, BMP #### [facility] [address] [place], [place] [address] BASIC METABOLIC PANL Collected: 11/12/2017 Status: F Source: [place] 5:18 AM [facility] REPOSITORY TYPE CODE TESTS RESULT OUT OF REFERENCE UNITS RANGE LAB GLU 74-99 mg/dL High Glucose 128 Result Comment: The [place] [employer] (ADA) provides guidance for cutoff values for fasting glucose and random glucose. The ADA defines fasting as no caloric intake for at least 8 hours. Fas ting plasma glucose results between 100 to 125 mg/dL indicate increased risk for diabetes (prediabetes). Fasting plasma glucose results greater than or equal to 126 mg/dL meet the criteria for diagnosis of diabetes. In the absence of unequivocal hyperglycemia, results should be confirmed by repeat testing. In a patient with classic symptoms of hyperglycemia or hyperglycemic crisis, random plasma glucose results greater than or equal to 200 mg/dL meet the criteria for diagnosis of diabetes. Reference: Standards of Medical Care in Diabetes 2016, [place] [employer]. Diabetes Care. 2016.39(Suppl 1). LAB BUN 7-21 mg/dL BUN High 47 LAB CRET 0.58-0.96 mg/dL Creatinine 0.96 LAB NA 136-144 mmol/L Sodium 138 LAB K 3.7-5.1 mmol/L Potassium 3.8 LAB CL 97-105 mmol/L Chloride 99 LAB CO2 22-30 mmol/L CO2 25 LAB AGAP 9-18 mmol/L Anion Gap 14 LAB CA 8.5-10.2 mg/dL Calcium, Total 8.6 LAB GFRAA eGFR- Amer. >60 LAB GFRNAA . eGFR-All Other Races >60 Result Comment: eGFR (Estimated GFR) Units of measure: mL/min/1.73 meters squared eGFR is derived from the reexpressed MDRD Study equation using the following parameters: serum creatinine, age, gender and race. The creatinine assay has been calibrated to be traceable to IDMS. An eGFR <60 mL/min/1.73m2 for >3 months is consistent with chronic kidney disease. Refer to KDOQI guidelines for clinical interpretation. In patients with unstable renal function, e.g. those with acute kidney injury, the eGFR may not accurately reflect actual GFR. Performed By: #### CBC, MG1, PHOS, BMP #### [facility] [address] [place] [id number] CONSULT PROG Observed: 11/11/2017 Status: COMPLETED Source: [place] 7:48 PM [facility] REPOSITORY HNO ID: [id number] Author: Luz Maria Wolfe) Service: Hematology/Oncology Author Type: Physician Type: Consult Progress Note Filed: 11/11/2017 9:36 PM Note Text: CONSULT PROGRESS NOTE SERVICE DATE: 11/11/2017 CONSULTING SERVICE: Hematology Subjective INTERVAL HPI: Doing well , no acute events overnight Hemoglobin is stable Platelets did drop today therefore patient will receive a transfusion Current hospital medications: [START ON 11/12/2017] NIFEdipine ER 60 mg tab(S) (PROCARDIA XL) 60 mg ORAL DAILY HYDROmorphone 0.4 mg in NaCl 0.9% (DILAUDID) 0.4 mg INTRAVENOUS q 4 H PRN carvedilol 25 mg tab(s) (COREG) 25 mg ORAL/FEEDING TUBE BID w MEALS oxyCODONE IR 5-10 mg tab(s) (ROXICODONE) 5-10 mg ORAL/FEEDING TUBE q 4 H PRN predniSONE (DELTASONE) tab(s) 60 mg 60 mg ORAL/FEEDING TUBE DAILY calcium gluconate 3 g in NaCl 0.9% 1,000 mL 3 g INTRAVENOUS APHERESIS albumin (5%) 50 g infusion 1,000 mL INTRAVENOUS APHERESIS sodium citrate 4% 3-6 mL catheter lock 3-6 mL INTRALUMINAL APHERESIS PRN lidocaine 5 % 1 Patch (LIDODERM) 1 Patch TRANSDERMAL DAILY lidocaine patch - REMOVE OTHER AT BEDTIME lidocaine - VERIFY PATCH OTHER q 8 H gabapentin 300 mg cap(s) (NEURONTIN) 300 mg ORAL q 12 H polyethylene glycol 3350 17 g packet (MIRALAX, GLYCOLAX) 17 g ORAL/FEEDING TUBE DAILY docusate sodium 100 mg cap(s) (COLACE) 100 mg ORAL BID senna 8.6 mg tab(s) (SENOKOT) 8.6 mg ORAL/FEEDING TUBE BID pantoprazole DR 40 mg tab(s) (PROTONIX) 40 mg ORAL DAILY (6 AM) ondansetron 8 mg tab(s) (ZOFRAN) 8 mg ORAL q 8 H PRN diphenhydrAMINE 50 mg (BENADRYL) 50 mg ORAL/FEEDING TUBE q 6 H PRN sulfamethoxazole-trimethoprim 400-80 mg 2 tablet (BACTRIM,SEPTRA) 2 tablet ORAL/FEEDING TUBE hydrocortisone sodium succinate (PF) 100 mg injection (Solu- CORTEF) 100 mg INTRAVENOUS q 4 H PRN diphenhydrAMINE 50 mg injection (BENADRYL) 50 mg INTRAVENOUS q 4 H PRN prochlorperazine 5 mg injection (COMPAZINE) 5 mg INTRAVENOUS q 6 H PRN 0.9% NaCl 2-10 mL 2-10 mL INTRAVENOUS PRN 0.9% NaCl 3-5 mL 3-5 mL INTRAVENOUS q 12 H dextrose 50% in water 25-50 mL syringe 12.5-25 g INTRAVENOUS PRN dextrose 40 % 15 g 15 g ORAL PRN glucagon 1 mg injection (GLUCAGEN) 1 mg SUBCUTANEOUS PRN acetaminophen 650 mg tab(s) (TYLENOL) 650 mg ORAL/FEEDING TUBE q 6 H PRN acetaminophen 650 mg suppository (TYLENOL) 650 mg RECTAL q 6 H PRN Objective PHYSICAL EXAM: BP 154/79 Pulse 83 Temp (Src) 98 (Oral) Resp 18 Ht 5' 3 (1.60m) Wt 214 lb 15.2 oz (97.5kg) SpO2 94% BMI 38.09 kg/(m2). General: Alert, NAD. Heart/CV: ?Grossly RRR Lungs: CTA Abd: ?Soft, NT,ND Extremities/Skin: No rashes appreciated ? DATA: CBC, Coags, BMP, Mg, Phos Recent Labs 11/11/17 1517 11/11/17 0335 11/10/17 0336 11/09/17 0549 WBC 5.54 5.57 6.21 5.69 HB 10.2* 9.5* 9.8* 10.1* HCT 31.6* 29.5* 29.8* 30.2* PLT 34* 25* 29* 36* NA -- 140 135* 138 K -- 3.4* 3.9 3.4* CHLOR -- 100 95* 96* CO2 -- 24 27 26 BUN -- 47* 56* 57* CREAT -- 1.10* 0.96 1.29* GLUC -- 123* 91 88 CA -- 8.3* 8.8 8.9 MG -- 1.8 1.9 2.0 P -- 3.4 3.3 3.8 Liver Function, Amylase, AND Lipase Impression/Recommendations 27 y/o female?with PMHx of 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 Recent admission 10/13/17-10/23/17 for hemoptysis and SOB, requiring intubation, was in MICU for management of DAH. readmitted to MICU again for ?extensive left retroperitoneal hemorrhage?s/p IR guided intervention (initially on 10/23 at [facility] and 10/26 here at [facility]. ? # Antiphospholipid antibody syndrome -recent home therapy : Prednisone 60 mg ( home dose 5 mg), Cytoxan 75 mg ( home dose 150 mg), pheresis on 11/03 ?-continue with current dose of steroids -Continue to d/c cytoxan given persistent thrombocytopenia, -as this might he causing myelosuppression -given N plate 2mcg/kg sq x1 on 11/09 -continue to trend plt level -Consider changing Bactrim to pentamidine -AC is on hold due to recent bleeding and persistent thrombocytopenia. - will discuss with pheresis team getting her back on schedule for 11/13/2017 ? ? #Extensive left retroperitoneal hemorrhage -likely secondary to anticoagulant. Its an unfortunate case, she needs an anticoagulation for APS but bleeding episodes prohibits -sp IR intevention on 10/23 and 10/26? - Please transfuse Platelets to keep Plt >30 K. Please check post transfusion CBC 1 hour after transfusion. ? #Abnormal hemolysis labs - with elevated LD, elevated retic, and an undetectable hapto. Hemoglobin has been stable. - ?Direct [place] is negative -ADAMTS 13 activity resulted at 56 % speaking against TTP -Abnormal hemolysis labs likely related to resolving hematoma. Will follow Discussed with ? Jefferson Willett MD Heme/Onc fellow Addendum: I have repeated the pertinent features of the history and examination and reviewed appropriate available diagnostics in this patient. I am in agreement with the plan as stated above. I discussed the above plan with the patient and I have answered questions asked by the patient. Luz Maria Wolfe MD November 11, 2017 9:35 PM CBC Collected: 11/11/2017 Status: F Source: [place] 3:17 PM [facility] REPOSITORY TYPE CODE TESTS RESULT OUT OF REFERENCE UNITS RANGE LAB WBC 3.70-11.00 k/uL WBC 5.54 LAB RBC 3.90-5.20 m/uL Low RBC 3.10 LAB HGB 11.5-15.5 g/dL Low Hemoglobin 10.2 LAB HCT 36.0-46.0 % Low Hematocrit 31.6 LAB MCV 80.0-100.0 fL MCV High 101.9 LAB MCH 26.0-34.0 pG MCH 32.9 LAB MCHC 30.5-36.0 g/dL MCHC 32.3 LAB RDWCV 11.5-15.0 % RDW-CV High 25.6 LAB PLTCT 150-400 k/uL Low Platelet Count 34 Result Comment: Result checked and verified No clot detected. LAB MPV 9.0-12.7 fL MPV <<DO NOT REPORT>> LAB ABSNUC <0.01 k/uL <0.01 Absolute nRBC Performed By: #### CBC #### [facility] [address] [place] [id number] TYPE AND SCREEN Collected: 11/11/2017 Status: F Source: [place] 9:47 AM [facility] REPOSITORY TYPE CODE TESTS RESULT OUT OF REFERENCE UNITS RANGE LAB %ABR B ABO/RH(D) POSITIVE LAB % Antibody POS Screen Performed By: #### TSCR #### [facility] [address] [place], [place] [address] PROGRESS Observed: 11/11/2017 Status: COMPLETED Source: [place] 6:53 AM [facility] REPOSITORY HNO ID: [id number] Author: Edson Mohr Service: General Internal Medicine Author Type: Physician Type: Progress Notes Filed: 11/11/2017 12:07 PM Note Text: [facility] PROGRESS NOTE For questions regarding this patient today please page [phone] After 5 pm on weekdays and 3pm on weekends and holidays please page documentation clerk pager [phone] SERVICE DATE: 11/11/2017 SERVICE TIME: 6:53 AM INTERVAL HISTORY: - No acute events overnight - Still using dilaudid and oxycodone regularly but trying to wean - Patient reportedly walked in the hallway during PT session. Experienced fatigue and mild dyspnea. Patient is motivated to prove every day - cough with red expectoration this AM with concern for hemoptysis. - continues to be on 2L NC with mild crepitations at the bases. CXR yesterday suggestive of mild edema - BP 154-173/74-85, HR 75-84, afebrile, non-tachypneic - Started N plate and discontinued cytoxan in setting of worsening thrombocytopenia. - Heme: continue to hold cytoxan in setting of thrombocytopenia. Transfuse for plt<30k. Continue current dose of steroids. Will try to set up apheresis for this coming Monday. Consider switching TMP-SMX to pentamidine; clarify with her outpatient provider. Labs: Hgb: 9.3-->9.5-->9.7-->9.0-->10.1-->9.8-->9.5 Creatinine: 1.10-->1.40-->1.19-->1.29-->0.96-->1.1 Plt: 40-->34-->28-->36-->29-->25 PLAN FOR TODAY - Increase nifedipine to 60mg BID with holding parameters - transfuse 1 unit of platelets; f/u CBC 1 hour post-transfusion - holding diuresis 11/11 - arrange outpatient nephrology appt and renal panel check after discharge. MEDICATIONS: Current hospital medications: [START ON 11/12/2017] NIFEdipine ER 60 mg tab(S) (PROCARDIA XL) 60 mg ORAL DAILY potassium chloride iv piggyback 20 mEq/100 mL 20 mEq INTRAVENOUS ONCE HYDROmorphone 0.4 mg in NaCl 0.9% (DILAUDID) 0.4 mg INTRAVENOUS q 4 H PRN carvedilol 25 mg tab(s) (COREG) 25 mg ORAL/FEEDING TUBE BID w MEALS oxyCODONE IR 5-10 mg tab(s) (ROXICODONE) 5-10 mg ORAL/FEEDING TUBE q 4 H PRN predniSONE (DELTASONE) tab(s) 60 mg 60 mg ORAL/FEEDING TUBE DAILY calcium gluconate 3 g in NaCl 0.9% 1,000 mL 3 g INTRAVENOUS APHERESIS albumin (5%) 50 g infusion 1,000 mL INTRAVENOUS APHERESIS sodium citrate 4% 3-6 mL catheter lock 3-6 mL INTRALUMINAL APHERESIS PRN lidocaine 5 % 1 Patch (LIDODERM) 1 Patch TRANSDERMAL DAILY lidocaine patch - REMOVE OTHER AT BEDTIME lidocaine - VERIFY PATCH OTHER q 8 H gabapentin 300 mg cap(s) (NEURONTIN) 300 mg ORAL q 12 H polyethylene glycol 3350 17 g packet (MIRALAX, GLYCOLAX) 17 g ORAL/FEEDING TUBE DAILY docusate sodium 100 mg cap(s) (COLACE) 100 mg ORAL BID senna 8.6 mg tab(s) (SENOKOT) 8.6 mg ORAL/FEEDING TUBE BID pantoprazole DR 40 mg tab(s) (PROTONIX) 40 mg ORAL DAILY (6 AM) ondansetron 8 mg tab(s) (ZOFRAN) 8 mg ORAL q 8 H PRN diphenhydrAMINE 50 mg (BENADRYL) 50 mg ORAL/FEEDING TUBE q 6 H PRN sulfamethoxazole-trimethoprim 400-80 mg 2 tablet (BACTRIM,SEPTRA) 2 tablet ORAL/FEEDING TUBE -WE- hydrocortisone sodium succinate (PF) 100 mg injection (Solu- CORTEF) 100 mg INTRAVENOUS q 4 H PRN diphenhydrAMINE 50 mg injection (BENADRYL) 50 mg INTRAVENOUS q 4 H PRN prochlorperazine 5 mg injection (COMPAZINE) 5 mg INTRAVENOUS q 6 H PRN 0.9% NaCl 2-10 mL 2-10 mL INTRAVENOUS PRN 0.9% NaCl 3-5 mL 3-5 mL INTRAVENOUS q 12 H dextrose 50% in water 25-50 mL syringe 12.5-25 g INTRAVENOUS PRN dextrose 40 % 15 g 15 g ORAL PRN glucagon 1 mg injection (GLUCAGEN) 1 mg SUBCUTANEOUS PRN acetaminophen 650 mg tab(s) (TYLENOL) 650 mg ORAL/FEEDING TUBE q 6 H PRN acetaminophen 650 mg suppository (TYLENOL) 650 mg RECTAL q 6 H PRN HOME MEDICATIONS: cyclophosphamide (CYTOXAN) 50 mg capsule Take 150 mg by mouth once daily. diphenhydrAMINE (BENADRYL) 50 mg capsule Take 1 capsule by mouth every 6 hours as needed for Itching/Rash. gabapentin (NEURONTIN) 100 mg capsule Take 1 capsule by mouth three times daily for 7 days. ondansetron (ZOFRAN, HYDROCHLORIDE,) 8 mg tablet Take 8 mg by mouth every 8 hours as needed for Nausea/Vomiting. pantoprazole DR (PROTONIX) 40 mg tablet Take 40 mg by mouth daily at bedtime. sulfamethoxazole-trimethoprim (BACTRIM DS) 800-160 mg per tablet Take 1 tablet by mouth every Monday,Monday,Monday. fluticasone (FLONASE) 50 mcg/actuation nasal spray Use 1-2 Sprays in each nostril once daily as needed for Cold/Allergy Symptoms (starting in allergy season). senna 8.6 mg tab Take 1 tablet by mouth twice daily as needed. PHYSICAL EXAM: VITAL SIGNS Patient Vitals for the past 24 hrs: BP Temp Temp src Pulse Resp SpO2 11/11/17 0608 154/74 36.7 ?C (98 ?F) Oral 76 18 96 % 11/11/17 0330 161/85 36.8 ?C (98.3 ?F) Oral 75 18 93 % 11/11/17 0132 173/75 36.6 ?C (97.8 ?F) Oral 84 18 94 % 11/10/17 2200 153/63 36.8 ?C (98.2 ?F) Oral 77 18 98 % 11/10/17 1758 158/75 36.4 ?C (97.6 ?F) Oral 85 18 97 % 11/10/17 1727 177/85 - - 76 20 - 11/10/17 1400 152/63 36.4 ?C (97.6 ?F) Oral 81 20 95 % 11/10/17 0939 135/74 36.7 ?C (98.1 ?F) Oral 88 19 93 % BP 145/89 Pulse 78 Temp 36.4 ?C (97.5 ?F) (Oral) Resp 18 Ht 160 cm (5' 3) Wt 97.5 kg (214 lb 15.2 oz) SpO2 96% BMI 38.08 kg/m? Temp (24hrs), Av.6 ?C (97.9 ?F), Min:36.4 ?C (97.6 ?F), Max:36.8 ?C (98.3 ?F) INTAKE/OUTPUT Intake/Output Summary (Last 24 hours) at 11/11/17 1140 Last data filed at 11/11/17 0600 Gross per 24 hour Intake 861.2 ml Output 1375 ml Net -513.8 ml General: Alert, oriented, cooperative. In no acute distress. 2L NC Skin: Chronic skin changes on bilateral LE due to lymphedema HEENT: EOM. Pupils equal, round and reactive Cardiovascular: RRR. No murmur Lungs: Mild crepitations at the bases R>L Abdomen: Soft, non-tender, no masses or organomegaly Extremities: 2+ peripheral edema +2 DP pulses bilaterally Neurological: Moving all extremities freely LAB DATA: CBC, Coags, BMP, Mg, Phos Recent Labs 11/11/17 0335 11/10/17 0336 11/09/17 0549 WBC 5.57 6.21 5.69 HB 9.5* 9.8* 10.1* HCT 29.5* 29.8* 30.2* PLT 25* 29* 36* NA 140 135* 138 K 3.4* 3.9 3.4* CHLOR 100 95* 96* CO2 24 27 26 BUN 47* 56* 57* CREAT 1.10* 0.96 1.29* GLUC 123* 91 88 CA 8.3* 8.8 8.9 MG 1.8 1.9 2.0 P 3.4 3.3 3.8 ASSESSMENT AND PLAN: Active Hospital Problems Diagnosis - Retroperitoneal hematoma Retroperitoneal bleed: s/p 7 units PRBCs s/p IR emobolization of left L3 artery at [facility] on 10/23 IR embolization of left L2 and L3 arteries on 10/26 CT abd/pel 10/31: RP bleed stable when compared to previous imaging from 10/27 LDH 1730, haptoglobin <10, Tbili 1.3- concern for hemolysis as well. Per heme, thrombocytopenia and anemia likely related to cytoxan with stressed BM Cytoxan reduced to 75 mg daily Plan: Continue to monitor HANDH and transfuse PRBC if Hb<7 or symptomatic Continue to hold Anticoagulation until approved by Vascular medicine- initially recommended holding AC for at least 14 days since last bleeding. 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 Has received stenting of IVC and iliacs along with endograft of IVC. 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 C/B extensive RP bleed s/p L2, L3 embolization. N-plate 11/09 Plan: Hold Cytoxan 75 mg in setting of worsening thrombocytopenia Continue prednisone 60 mg with bactrim ppx Appreciate hematology and VM recs Received Apheresis on 11/03, may need more sessions per hematology-following - CAPRICE (acute kidney injury) (HCC) CAPRICE on CKD III, 2/2 contrast, now requiring dialysis First HD at [facility] on 10/25 with tunneled dialysis catheter placement followed by [address] Abdomen/pelvis from 10/26 showed occlusion of B/L renal veins, outflow not appreciated- could be attributing to CAPRICE and CKD Bladder scan Plan: Nephrology following- appreciate recommendations Daily BMPs to watch K, Na and phosphorus levels Renal dosing of medication Avoid excess fluids and nephrotoxic drugs - HTN (hypertension) Mildly decreased systolic function, diastolic function indeterminate on 10/13/17 ECHO. 10/28: Run of SBP in 200s overnight (likely d/t pain), given hydralazine however still consistently in 170s-180s 10/29: Still hypertensive, required 4 doses of hydralazine overnight Switched Amlodipine 10 mg to nifedipine 30mg on 11/10, and increased Coreg from 6.25 to 25 mg BID Plan: Increased Nefidipine to 60 mg BID and keeping Coreg at current dosing, can up titrate coreg if tolerating well (HR currently 80-100) Can consider adding PRN hydralazine for SBP>180 mm Hg, - Diffuse pulmonary alveolar hemorrhage Currently stable, no new episodes Has had 6 admissions recently for acute respiratory failure requiring mechanical ventilation Cytoxan was reduced from 150 to 75 mg due to concern for BM toxicity; renally dosed Plan: Continue to monitor respiratory status Continue oxygen therapy at 2L NC Holding Cytoxan in setting of worsening thrombocytopenia Continue Prednisone 60 mg daily with Bactrim PPX Will reach out to outpatient provider regarding switch to pentamidine from bactrim, per heme recs - Moraxella catarrhalis pneumonia (HCC) Had respiratory cultures growing Moraxella catarrhalis Received ceftriaxone 10/27-11/03- 7 days therapy WBC trended down from 21 K to 12K. Currently at baseline O2 requirement but still slightly tachypneic Completed course of ceftriaxone. Plan: Continue to monitor respiratory status closely BPH per RT Incentive spirometry - Peripheral neuropathy - History of heparin-induced thrombocytopenia Avoid all heparin products. - Weakness of left leg 11/02 Left leg weakness/parasthesia Likely related to lumbar nerve compression from large retroperitoneal hematoma Neurology was following, recommended no further intervention On gabapentin renally dosed. - Right groin pain 10/27: C/o acute pain this morning, access site for embolization at [facility], no erythema or induration appreciated on exam, exquisitely TTP Groin study showed no signs of PSA, known AV fistula visualized with retrograde flow, vascular med aware- no further recs 10/28: pain less severe, no physical exam findings Repeat Leg DVT shows no pseudoaneurysm Likely due to nerve compression/RP hematoma causing compressive symtpoms S/p R groin drain placed at [facility] on 10/24 s/p L groin drain placed at [facility] during embolization on 10/26 Plan: - Pain management-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 [employer] as of transfer to [facility] - Will continue to wean dilaudid as pt tolerates, currently kept her on Dilaudid 0.4 mg q3h PRN for pain - IR consult for drain evaluation and removal on 11/05 MAINTENANCE: VTE PROPHYLAXIS: IPCD NEED FOR ZUNIGA- Yes LINES: Double lumen dialysis catheter 10/25/17 Dispo- [facility] [place] This note is not final until staffed by the attending physician and authenticated by responsible provider. SIGNATURE: Olga Reyez MD PATIENT NAME: Paloma Cannon DATE: November 11, 2017 TIME: 6:53 AM PAGER: [phone] IM STAFF ADDENDUM -Raf Terry TEAM Patient seen and evaluated this a.m.. Fernandes elements of history and physical examination of the patient were confirmed. The assessment and plan were formulated and discussed with the team on Rounds. I reviewed the resident's note, examined the patient and agree with the documented findings and plan of care. Edson Mohr MD November 11, 2017 12:07 PM CBC Collected: 11/11/2017 Status: F Source: [place] 3:35 AM [facility] REPOSITORY TYPE CODE TESTS RESULT OUT OF REFERENCE UNITS RANGE LAB WBC 3.70-11.00 k/uL WBC 5.57 LAB RBC 3.90-5.20 m/uL Low RBC 2.91 LAB HGB 11.5-15.5 g/dL Low Hemoglobin 9.5 LAB HCT 36.0-46.0 % Low Hematocrit 29.5 LAB MCV 80.0-100.0 fL MCV High 101.4 LAB MCH 26.0-34.0 pG MCH 32.6 LAB MCHC 30.5-36.0 g/dL MCHC 32.2 LAB RDWCV 11.5-15.0 % RDW-CV High 25.7 LAB PLTCT 150-400 k/uL Low Platelet Count 25 Result Comment: Result checked and verified No clot detected. LAB MPV 9.0-12.7 fL MPV <<DO NOT REPORT>> LAB ABSNUC <0.01 k/uL 0.02 High Absolute nRBC Performed By: #### CBC, MG1, PHOS, BMP #### [facility] [address] [address] MAGNESIUM Collected: 11/11/2017 Status: F Source: [place] 3:35 AM [facility] REPOSITORY TYPE CODE TESTS RESULT OUT OF REFERENCE UNITS RANGE LAB MG 1.7-2.3 mg/dL Magnesium 1.8 Performed By: #### CBC, MG1, PHOS, BMP #### [facility] [address] [address] PHOSPHORUS Collected: 11/11/2017 Status: F Source: [place] 3:35 AM [facility] REPOSITORY TYPE CODE TESTS RESULT OUT OF REFERENCE UNITS RANGE LAB PHOS 2.7-4.8 mg/dL Phosphorus 3.4 Performed By: #### CBC, MG1, PHOS, BMP #### [facility] [address] [address] BASIC METABOLIC PANL Collected: 11/11/2017 Status: F Source: [place] 3:35 AM [facility] REPOSITORY TYPE CODE TESTS RESULT OUT OF REFERENCE UNITS RANGE LAB GLU 74-99 mg/dL High Glucose 123 Result Comment: The [place] [employer] (ADA) provides guidance for cutoff values for fasting glucose and random glucose. The ADA defines fasting as no caloric intake for at least 8 hours. Fas ting plasma glucose results between 100 to 125 mg/dL indicate increased risk for diabetes (prediabetes). Fasting plasma glucose results greater than or equal to 126 mg/dL meet the criteria for diagnosis of diabetes. In the absence of unequivocal hyperglycemia, results should be confirmed by repeat testing. In a patient with classic symptoms of hyperglycemia or hyperglycemic crisis, random plasma glucose results greater than or equal to 200 mg/dL meet the criteria for diagnosis of diabetes. Reference: Standards of Medical Care in Diabetes 2016, [place] [employer]. Diabetes Care. 2016.39(Suppl 1). LAB BUN 7-21 mg/dL BUN High 47 LAB CRET 0.58-0.96 mg/dL Creatinine High 1.10 LAB NA 136-144 mmol/L Sodium 140 LAB K 3.7-5.1 mmol/L Low Potassium 3.4 LAB CL 97-105 mmol/L Chloride 100 LAB CO2 22-30 mmol/L CO2 24 LAB AGAP 9-18 mmol/L Anion Gap 16 LAB CA 8.5-10.2 mg/dL Low Calcium, Total 8.3 LAB GFRAA eGFR- Amer. >60 LAB GFRNAA . eGFR-All Other Races 59 Result Comment: eGFR (Estimated GFR) Units of measure: mL/min/1.73 meters squared eGFR is derived from the reexpressed MDRD Study equation using the following parameters: serum creatinine, age, gender and race. The creatinine assay has been calibrated to be traceable to IDMS. An eGFR <60 mL/min/1.73m2 for >3 months is consistent with chronic kidney disease. Refer to KDOQI guidelines for clinical interpretation. In patients with unstable renal function, e.g. those with acute kidney injury, the eGFR may not accurately reflect actual GFR. Performed By: #### CBC, MG1, PHOS, BMP #### [facility] [address] [place], [place] [address] CONSULT PROG Observed: 11/10/2017 Status: COMPLETED Source: [place] 6:44 PM [facility] REPOSITORY HNO ID: [id number] Author: Jefferson Willett (Durga) Service: Hematology/Oncology Author Type: Fellow Type: Consult Progress Note Filed: 11/10/2017 6:49 PM Note Text: CONSULT PROGRESS NOTE SERVICE DATE: 11/10/2017 CONSULTING SERVICE: Hematology Subjective INTERVAL HPI: Doing well , no acute events overnight Hemoglobin is stable States new productive cough Current hospital medications: NIFEdipine ER 30 mg tab(s) (PROCARDIA XL) 30 mg ORAL DAILY HYDROmorphone 0.4 mg in NaCl 0.9% (DILAUDID) 0.4 mg INTRAVENOUS q 4 H PRN carvedilol 25 mg tab(s) (COREG) 25 mg ORAL/FEEDING TUBE BID w MEALS oxyCODONE IR 5-10 mg tab(s) (ROXICODONE) 5-10 mg ORAL/FEEDING TUBE q 4 H PRN predniSONE (DELTASONE) tab(s) 60 mg 60 mg ORAL/FEEDING TUBE DAILY calcium gluconate 3 g in NaCl 0.9% 1,000 mL 3 g INTRAVENOUS APHERESIS albumin (5%) 50 g infusion 1,000 mL INTRAVENOUS APHERESIS sodium citrate 4% 3-6 mL catheter lock 3-6 mL INTRALUMINAL APHERESIS PRN lidocaine 5 % 1 Patch (LIDODERM) 1 Patch TRANSDERMAL DAILY lidocaine patch - REMOVE OTHER AT BEDTIME lidocaine - VERIFY PATCH OTHER q 8 H gabapentin 300 mg cap(s) (NEURONTIN) 300 mg ORAL q 12 H polyethylene glycol 3350 17 g packet (MIRALAX, GLYCOLAX) 17 g ORAL/FEEDING TUBE DAILY docusate sodium 100 mg cap(s) (COLACE) 100 mg ORAL BID senna 8.6 mg tab(s) (SENOKOT) 8.6 mg ORAL/FEEDING TUBE BID pantoprazole DR 40 mg tab(s) (PROTONIX) 40 mg ORAL DAILY (6 AM) ondansetron 8 mg tab(s) (ZOFRAN) 8 mg ORAL q 8 H PRN diphenhydrAMINE 50 mg (BENADRYL) 50 mg ORAL/FEEDING TUBE q 6 H PRN sulfamethoxazole-trimethoprim 400-80 mg 2 tablet (BACTRIM,SEPTRA) 2 tablet ORAL/FEEDING TUBE hydrocortisone sodium succinate (PF) 100 mg injection (Solu- CORTEF) 100 mg INTRAVENOUS q 4 H PRN diphenhydrAMINE 50 mg injection (BENADRYL) 50 mg INTRAVENOUS q 4 H PRN prochlorperazine 5 mg injection (COMPAZINE) 5 mg INTRAVENOUS q 6 H PRN 0.9% NaCl 2-10 mL 2-10 mL INTRAVENOUS PRN 0.9% NaCl 3-5 mL 3-5 mL INTRAVENOUS q 12 H dextrose 50% in water 25-50 mL syringe 12.5-25 g INTRAVENOUS PRN dextrose 40 % 15 g 15 g ORAL PRN glucagon 1 mg injection (GLUCAGEN) 1 mg SUBCUTANEOUS PRN acetaminophen 650 mg tab(s) (TYLENOL) 650 mg ORAL/FEEDING TUBE q 6 H PRN acetaminophen 650 mg suppository (TYLENOL) 650 mg RECTAL q 6 H PRN Objective PHYSICAL EXAM: BP 158/75 Pulse 85 Temp (Src) 97.6 (Oral) Resp 18 Ht 5' 3 (1.60m) Wt 214 lb 15.2 oz (97.5kg) SpO2 97% BMI 38.09 kg/(m2). General: Alert, NAD. Heart/CV: ?Grossly RRR Lungs: CTA Abd: ?Soft, NT,ND Extremities/Skin: No rashes appreciated ? DATA: CBC, Coags, BMP, Mg, Phos Recent Labs 11/10/17 0336 11/09/17 0549 11/08/17 0039 WBC 6.21 5.69 6.77 HB 9.8* 10.1* 9.0* HCT 29.8* 30.2* 27.0* PLT 29* 36* 28* NA 135* 138 133* K 3.9 3.4* 3.7 CHLOR 95* 96* 94* CO2 27 26 24 BUN 56* 57* 59* CREAT 0.96 1.29* 1.19* GLUC 91 88 112* CA 8.8 8.9 8.7 MG 1.9 2.0 2.1 P 3.3 3.8 3.6 Liver Function, Amylase, AND Lipase Impression/Recommendations 27 y/o female?with PMHx of 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 Recent admission 10/13/17-10/23/17 for hemoptysis and SOB, requiring intubation, was in MICU for management of DAH. readmitted to MICU again for ?extensive left retroperitoneal hemorrhage?s/p IR guided intervention (initially on 10/23 at [facility] and 10/26 here at [facility]. ? # Antiphospholipid antibody syndrome -Current home therapy : Prednisone 60 mg ( home dose 5 mg), Cytoxan 75 mg ( home dose 150 mg), pheresis on 11/03 ?-continue with current dose of steroids -Continue to d/c cytoxan given persistent thrombocytopenia, -as this might he causing myelosuppression -given N plate 2mcg/kg sq x1 on 11/09 -continue to trend plt level -AC is on hold due to recent bleeding and persistent thrombocytopenia. ? ? #Extensive left retroperitoneal hemorrhage -likely secondary to anticoagulant. Its an unfortunate case, she needs an anticoagulation for APS but bleeding episodes prohibits -sp IR intevention on 10/23 and 10/26? Last transfusion on 11/03- 2U of PRBC and 2 U of platelets - Please transfuse Platelets to keep Plt >30 K. Please check post transfusion CBC 1 hour after transfusion. ? #Abnormal hemolysis labs - with elevated LD, elevated retic, and an undetectable hapto. Hemoglobin has been stable. BPS reviewed again today ( 11/08) amd showed fewer RBC fragments ( 2-3 per HPF) - ?Direct [place] is negative -ADAMTS 13 activity resulted at 56 % speaking against TTP -Abnormal hemolysis labs might be related to resolving hematoma. Will follow Discussed with ? Jefferson Willett MD Heme/Onc fellow NURSING PROG Observed: 11/10/2017 Status: COMPLETED Source: [place] 6:40 PM [facility] REPOSITORY HNO ID: [id number] Author: Grace Deal (Rn), RN Service: Nursing Author Type: Registered Nurse Type: Nursing Progress Note Filed: 11/10/2017 6:44 PM Note Text: Daily note: This nurse medicated patient with PRN pain medication. First with oral oxycodone, for 9/10 pain, ineffective. Later patient was medicated with prn iv dilaudid. Patient discussed how excited she was walking out of her room with physical therapy. Safety maintained. PROGRESS Observed: 11/10/2017 Status: COMPLETED Source: [place] 4:06 PM [facility] REPOSITORY HNO ID: [id number] Author: Catherine Oh (Durga)MD Service: Nephrology Author Type: Fellow Type: Progress Notes Filed: 11/10/2017 4:07 PM Note Text: Nephrology Note Cr improved to 0.96. Will sign off at this time. Please call with any questions. Will need outpatient Nephrology appointment after discharge which will be arranged. Please ensure patient has renal function panel checked 5-7 days after discharge. Discussed with staff Dr. [place]. Catherine Oh MD Fellow Nephrology and Hypertension Pager: [phone] November 10, 2017 4:06 PM THERAPY NT Observed: 11/10/2017 Status: COMPLETED Source: [place] 3:36 PM [facility] REPOSITORY HNO ID: [id number] Author: Zahra Burks (Go-L) Service: Occupational Therapy Author Type: Weigh And Charge Worker Type: Therapy (PT/OT/Speech/Resp) Filed: 11/10/2017 3:40 PM Note Text: Occupational Therapy Treatment SERVICE DATE: 11/10/2017 SERVICE TIME: 1450 to 1516 ROOM: [address] [address] Recommended Discharge Disposition: Acute Rehab Justification For Post Acute Needs: Anticipate patient will tolerate 3 hours of daily therapy at the time of admission to post-acute setting;Anticipated community discharge;Cognition intact;Good family support;Good premorbid functional status;Good sitting tolerance;Medically complex;Motivated;Willing to participate;Anticipate that patient will require daily (5x/wk) skilled therapy in a post-acute facility setting at the time of acute hospital discharge Anticipated Discharge Needs: Undetermined OT Recommendations to Nursing: ADL?s in chair;Encourage patient participation with in-bed ADL?s;OOB for meals;With assist of 2 people Equipment: (TBD) OT 6 Clicks Score: 17 Precautions/Activity Restrictions: Fall Risk;Lines/Tubes/Drains ASSESSMENT: Patient presents with increased fatigue this session due to patient participating in PT earlier. Pt alert and agreeable to participate. Demonstrated improvement with bed mobility. Requires skilled OT to address strength, endurance, and safety, adaptations to promote greater independence and safety with I/ADLs.. Patient Disposition at Start of Session: Supine in Bed Patient Disposition at End of Session: Supine in Bed;Bed Alarm Tolerated Full Session Occupational Therapy Problem List: Edema;Impaired Self Care;Decreased Activity Tolerance;Decreased Strength;Functional Mobility Impairment;Balance Impaired Patient /Caregiver Goals: Go Home Goals for Plan of Care: Able to perform HEP with: Modified Independent (PROGRESSING) Grooming with: Modified Independent (PROGRESSING) Upper Body Bathing with: Modified Independent Upper Body Dressing with: Modified Independent Lower Body Bathing with: Modified Independent Lower Body Dressing with: Modified Independent (PROGRESSING) Toilet Hygiene with: Modified Independent Toilet Transfer with: Modified Independent Tolerate (minutes of functional activity): (MET) Functional Activity with: Modified Independent (PROGRESSING) Demonstrate Positive Coping Strategies with: Modified Independent (PROGRESSING) Demonstrate Competence With Education with: Modified Independent Progress Toward Goals: Progressing as expected Rehab Potential: Excellent PLAN: Treatment Frequency (times per week): 2 (+ 2 PRN per week) Current admission Treatment Interventions: Education;Self Care / Home Management;Energy Conservation Training;Strengthening;Functional Mobility Training;Balance Training;Edema Management;Pain Management Plan of Care developed with: Patient TREATMENT INTERVENTIONS: Therapy Diagnosis: Decreased activities of daily living (ADL) Interventions Provided: Therapeutic Exercise (07300);Therapeutic Activity (85959) Therapeutic Exercise (41572) Treatment Minutes: 16 1 unit Skilled Intervention(s): Instructed pt through bilateral upper extremity exercises to increase strength, endurance, and functional range of motion needed for improved tolerance with I/ADLs and functional mobility in prep for household distances. Provided cues for pursed lip breathing, pacing range of motion, and optimal alignment and recruitment. Pt completed the following exercises x10 reps, 1 set as follows. Utilized 2# and 3# weighted dowel jodi as follows. - shoulder flexion/extension, chest press, elbow flexion/extension, backwards shoulder rolls, D1 flexion/extension, D2 flexion/extension. Therapeutic Activity (48320) Treatment Minutes: 10 1 unit Skilled Intervention(s): Instructed patient in supine to sit pushing with upper extremities to sit up with CGA-supervision Instructed patient in sit to supine using safe, effective technique with mod A for advancement of BLEs. Facilitated sitting at EOB during static/dynamic tasks with supervision. Instructed pt on pursed lip breathing for relaxation and controlled breathing. Total Timed Code Treatment Minutes: 26 Total Treatment Time (minutes): 26 FUNCTIONAL G CODE: OT 6 Clicks Score: 17 (11/10/171449) Self Care Current Status (G8987): CK (11/10/17 1450) Self Care Goal Status (G8988): CJ (11/10/171449) Based on clinical assessment and the score on the 6 Clicks Functional Assessment Tool, the G code and corresponding severity modifiers are documented above. 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, CKD, HF, HTN, polyneuropathy Patient Report: Reports that her legs feel very weak. 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 Entry To Home: No Stairs Number Of Stairs To Bed/Bath: 0 Tub/Shower Type: walk in shower Equipment Owned: Commode-Raised;Grab Bars-Shower;Grab Bars-Toilet;Shower Chair;Home Oxygen Prior Functional Level: Required Assistance Assistance Required With: Cleaning;Laundry;Meals;Shopping;Transportation Prior Wound Care: Other: See Comment (unable to don compression stockings (I)) OBJECTIVE: Orientation Deficits: Other: See Comment (Improved orientation to self and situation. NA time/day) Responsiveness: Alert Follows Commands: 3-step Commands;Cueing Needed Cueing to Follow Commands: Minimum Psychosocial Deficit: depressed, anxious CURRENT FUNCTIONAL STATUS: Current Activities of Daily Living Assist Level Feeding Set Up Grooming Set Up Bathing Upper Body Minimal Assistance Bathing Lower Body Moderate Assistance Dressing Upper Body Minimal Assistance Dressing Lower Body Total Assistance Toileting Maximal Assistance Instrumental Activities of Daily Living Assist Level Meal/Beverage Prep Light Cleaning Laundry Medication Management with Strategies Supervision Functional Mobility Assist Level Rolling Minimal Assistance Supine to Sit Minimal Assistance Sit to Supine Moderate Assistance Scooting Contact Guard Assistance Sit to Stand Other: See Comment (NA) Stand to Sit Other: See Comment (NA) Bed to Chair Other: See Comment (NA) (NA) Toilet/Commode Functional Mobility Please see discipline specific clinical documentation flowsheet for complete details for this therapy evaluation/treatment. SIGNATURE: ELROY Perez PATIENT NAME: Paloma Cannon DATE: November 10, 2017 TIME: 3:36 PM PAGER: [phone] XR CHEST 1V FRONTAL Observed: 11/10/2017 Status: F Source: [facility] 12:26 PM [facility] REPOSITORY * * *Final Report* * * DATE OF EXAM: Nov 10 2017 12:26PM [facility] [id number] - XR CHEST 1V FRONTAL PORT / PROCEDURE REASON: Shortness of breath * * * * Physician Interpretation * * * * EXAMINATION: CHEST RADIOGRAPH (PORTABLE SINGLE VIEW AP) Exam Date/Time: 11/10/2017 12:26 PM Indication: Shortness of breath MQ: [id number] Comparison: 10/30/2017 RESULT: See impression. IMPRESSION: Lines, tubes, and devices: 2 left-sided central venous catheters stable in position. Lungs and pleura: Lung volumes are low and there is bibasilar subsegmental atelectasis. There are bilateral thickened interstitial opacities with scattered peribronchial cuffing, suggestive of mild interstitial pulmonary edema. No substantial pleural effusion. No pneumothorax identified. Cardiomediastinal silhouette: Stable cardiomediastinal silhouette. Practice Support Specialist: MURTAZA Transcribe Date/Time: Nov 10 2017 2:02P Dictated by : ELSA SHIN MD This examination was interpreted and the report reviewed and electronically signed by: ELSA SHIN MD on Nov 10 2017 2:05PM EST [id number] THERAPY NT Observed: 11/10/2017 Status: COMPLETED Source: [place] 11:52 AM [facility] REPOSITORY [facility] ID: [id number] Author: Indra Woods (Rn Interventional) Service: Physical Therapy Author Type: Ancillary Specialist Type: Therapy (PT/OT/Speech/Resp) Filed: 11/10/2017 12:07 PM Note Text: Attestation signed by Brenda Meraz (Pt) at 11/10/2017 1:03 PM I reviewed and agree with the assessment as documented above. SIGNATURE: Brenda Meraz PT DATE: November 10, 2017 TIME: 1:03 PM Physical Therapy Treatment SERVICE DATE: 11/10/2017 SERVICE TIME: 1023 to 1143 ROOM: H080[facility] Recommended Discharge Disposition: Acute Rehab Justification For Post Acute Needs: Anticipate that patient will require daily (5x/wk) skilled therapy in a post-acute facility setting at the time of acute hospital discharge;Willing to participate;Motivated;Anticipate patient will tolerate 3 hours of daily therapy at the time of admission to post-acute setting;Good family support Anticipated Discharge Needs: Undetermined PT Recommendations to Nursing: With assist of 1 person;Transfer to/from chair;OOB for Meals PT 6 Clicks Score: 12 Precautions/Activity Restrictions: Fall Risk;Lines/Tubes/Drains ASSESSMENT : Patient presents progressing with functional mobility. Patient increased distance and trials with ambulation with moderate assist of 1 with cues for trunk alignment, foot placement, walker management, balance and forward gaze. Patient fatigues easily and unable to stand for transfer to bed using walker at end of session, required maximal assist of 1 and minimal of 1 to stand pivot to bed. Patient would benefit from Acute Rehab to address current functional deficits. Patient Disposition at Start of Session: Supine in Bed Patient Disposition at End of Session: Supine in Bed;Call Wagoner in Reach Tolerated Full Session Physical Therapy Problem List: Cognitive Deficit;Education Deficit;Decreased Activity Tolerance;Decreased Strength;Functional Mobility Impairment Patient /Caregiver Goals: Go Home Goals for Plan of Care: Rolling with: Independent Transfer supine to/from sit with: Independent Transfer sit to/from stand with: Contact Guard Assistance Ambulate with: Contact Guard Assistance Distance: 10 Device: Wheeled Walker Progress Toward Goals: Progressing as expected Rehab Potential: Good PLAN: Treatment Frequency (times per week): 2 Treatment Duration (number): 2 Weeks Treatment Interventions: Education;Energy Conservation Training;Strengthening;Functional Mobility Training;Balance Training Plan of Care developed with: Patient TREATMENT INTERVENTIONS: Therapy Diagnosis: Reduced mobility-other;Muscle Weakness (generalized);Unsteadiness on feet Interventions Provided: Gait Training (90631);Therapeutic Activity (20628);Therapeutic Exercise (67084) Therapeutic Exercise (99837) Treatment Minutes: 25 2 units Skilled Intervention(s): Patient instructed in and performed supine exercises for 20 rep: AP, heelslides, SAQ, hip abduction; seated: 20 reps: AP and circles, LAQ, 10 reps: marching, hip abduction with minimal verbal and tactile cues for pacing and proper technique. Educated patient in reasoning for each exercise. Patient stated doing heel cord stretching with sheet. Therapeutic Activity (98405) Treatment Minutes: 15 1 unit Skilled Intervention(s): Instructed and assisted patient in log roll technique Instructed and assisted patient in supine to sit pushing with upper extremities to sit up Instructed and assisted patient in sit to supine using safe, effective technique Education with importance of OOB activities Transfer training from WC to bed using modified stand pivot with assist of 2 due fatigued at end of session unable to stand for transfer with walker Gait Training (11905) Treatment Minutes: 30 2 units Skilled Intervention(s): Instruction in sit to stand technique with proper hand placement and body positioning at edge of bed/chair with assist varying depending on fatigue. Patient unable to stand at end of session for 3 trials with assist of 2 due fatigue. Instruction in stand to sit technique with LE's touching chair/bed and reaching back for surface, Instruction in correction of gait deviations, Instruction in use of equipment, cues for sequence and pattern and walker management. Patient 89% on 2 liters after first ambulation of 6' improved to 93% with cues for deep breathing and rest. Patient required extra time due fatigue. Total Timed Code Treatment Minutes: 70 Total Treatment Time (minutes): 80 FUNCTIONAL G CODE: PT 6 Clicks Score: 12 (11/10/17 1023) Mobility: Walking and Moving Around Current Status (G8978): CL (11/02/17 1015) Mobility: Walking and Moving Around Goal Status (G8979): CK (11/02/17 1015) Based on clinical assessment and the score on the 6 Clicks Functional Assessment Tool, the G code and corresponding severity modifiers are documented above. SUBJECTIVE: Current Hospital Course: Chart reviewed and no significant medical updates relevant to therapy were noted Patient Report: Patient happy about being able to ambulate short distances with walker. 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 Entry To Home: No Stairs Number Of Stairs To Bed/Bath: 0 Tub/Shower Type: walk in shower Equipment Owned: Commode-Raised;Grab Bars-Shower;Grab Bars-Toilet;Shower Chair;Home Oxygen Prior Functional Level: Required Assistance Assistance Required With: Cleaning;Laundry;Meals;Shopping;Transportation Prior Wound Care: Other: See Comment (unable to don compression stockings (I)) OBJECTIVE: CURRENT FUNCTIONAL STATUS: Current Functional Mobility Assist Level Additional Information Rolling Contact Guard Assistance Supine to Sit Contact Guard Assistance Sit to Supine Moderate Assistance Scooting Minimal Assistance Sit to Stand Moderate Assistance ( x2 improved to maximal assist of 1) Stand to Sit Moderate Assistance (x 2 improved to moderate assist of 1) Bed to Chair Maximal Assistance and minimal assist of 1 Toilet/Commode Gait Moderate Assistance Gait Device: Wheeled Walker;With Wheelchair Follow Gait Distance (feet): 4', 6', 8' Stairs Curb Step Car Transfer General Gait Deviations: Delmy decreased;Lateral sway increased;Step length decreased;Wide base of support;Non-functional gait speed Balance: Static Sitting;Dynamic Sitting;Static Standing;Dynamic Standing Static Sitting Balance: Stand By Assistance Dynamic Sitting Balance: Contact Guard Assistance Static Standing Balance: Moderate Assistance ( x2 initially then moderate assist of 1) Dynamic Standing Balance: Moderate Assistance ( x2 initially then moderate assist of 1) Please see discipline specific clinical documentation flowsheet for complete details for this therapy evaluation/treatment. SIGNATURE: Indra Woods PTA PATIENT NAME: Plaoma Cannon DATE: November 10, 2017 TIME: 11:53 AM PAGER/CONTACT #: [phone] CASE MANAGEM Observed: 11/10/2017 Status: COMPLETED Source: [place] 9:49 AM [facility] REPOSITORY HNO ID: [id number] Author: Jacinta Olmedo (Rn), RN Service: Care Management Author Type: Registered Nurse Type: Care Mgt Progress Note Filed: 11/10/2017 1:51 PM Note Text: CARE MANAGEMENT PROGRESS NOTE SERVICE DATE: 11/10/2017 SERVICE TIME: 9:49 AM LOS: 16 days Needs Prior to Discharge: Accepting Facility;Insurance Authorization;Discharge Transportation Referal info manually faxed to [facility] [place]- attnShane Lei f) [phone] for review (pt first choice as it is very close to home) [facility] declines d/t pt complexity and accepting only short term patients. Per Gissell, [facility] Krysta (p) [phone] [facility] may be able to accept. She will notify CM after consult w team whether [facility] (closer to pt home) would be able to meet pt medical needs. Pt will need close daily lab montoring of blood status for possible need for transfusion) CM to continue to follow SIGNATURE: Jacinta Olmedo RN PATIENT NAME: Paloma Cannon DATE: November 10, 2017 TIME: 9:49 AM PAGER/CONTACT #: [phone] PROGRESS Observed: 11/10/2017 Status: COMPLETED Source: [place] 6:39 AM [facility] REPOSITORY HNO ID: [id number] Author: Edson Mohr Service: General Internal Medicine Author Type: Physician Type: Progress Notes Filed: 11/10/2017 1:37 PM Note Text: DEPARTMENT OF INTERNAL MEDICINE: PROGRESS NOTE PRIMARY TEAM: [facility] Weekdays 7 am to 5 pm/Weekend 7 am to 3 pm: Page [phone] ([place] Acnua) Weekdays 5 pm to 7 am/Weekend 3 pm to 7 am: [employer] Pager [phone] PATIENT NAME: Paloma Cannon BRIEF PLAN FOR TODAY: - Continue Prednisone, Cytoxan has been held - Continue bactrim prophylaxis - Continue current pain regimen - Hold off additional diuresis for 11/10/2017 - Will check daily CBC, BMP - Incentive spirometry - Hold AC for now until platelets are stable. - Elevate bilateral lower extremities - Continue current anti-hypertensive regimen - CXR given concern of possible hemoptysis (past history of DAH) - Disposition: Acute Rehabilitation INTERVAL HPI: No acute events overnight. Has remained hemodynamically stable. Switched hypertensive regimen to Nifedipine and Carvedilol which has been controlling the blood pressure. She has been complaining of cough with red expectoration since 1 day. She does have history of DAH. Started on N Plate and cytoxan has been held for thrombocytopenia Labs: Hgb: 9.3-->9.5-->9.7-->9.0-->10.1-->9.8 Creatinine: 1.10-->1.40-->1.19-->1.29-->0.96 Plt: 40-->34-->28-->36-->29 PHYSICAL EXAM: BP 135/74 Pulse 88 Temp 36.7 ?C (98.1 ?F) (Oral) Resp 19 Ht 160 cm (5' 3) Wt 97.5 kg (214 lb 15.2 oz) SpO2 93% BMI 38.08 kg/m? General: Alert and oriented, no apparent distress HEENT: No cervical lymphadenopathy, no pharyngeal erythema Heart: Regular rate and rhythm, s1s2, no murmurs rubs or gallops Lungs: Coarse breath sounds Abdomen: Positive bowel sounds, soft, nontender, nondistended Extremities: 2+ peripheral edema +2 DP pulses bilaterally Neuro: Moving all extremities freely MEDICATIONS: Current hospital medications: NIFEdipine ER 30 mg tab(s) (PROCARDIA XL) 30 mg ORAL DAILY HYDROmorphone 0.4 mg in NaCl 0.9% (DILAUDID) 0.4 mg INTRAVENOUS q 4 H PRN carvedilol 25 mg tab(s) (COREG) 25 mg ORAL/FEEDING TUBE BID w MEALS oxyCODONE IR 5-10 mg tab(s) (ROXICODONE) 5-10 mg ORAL/FEEDING TUBE q 4 H PRN predniSONE (DELTASONE) tab(s) 60 mg 60 mg ORAL/FEEDING TUBE DAILY calcium gluconate 3 g in NaCl 0.9% 1,000 mL 3 g INTRAVENOUS APHERESIS albumin (5%) 50 g infusion 1,000 mL INTRAVENOUS APHERESIS sodium citrate 4% 3-6 mL catheter lock 3-6 mL INTRALUMINAL APHERESIS PRN lidocaine 5 % 1 Patch (LIDODERM) 1 Patch TRANSDERMAL DAILY lidocaine patch - REMOVE OTHER AT BEDTIME lidocaine - VERIFY PATCH OTHER q 8 H gabapentin 300 mg cap(s) (NEURONTIN) 300 mg ORAL q 12 H polyethylene glycol 3350 17 g packet (MIRALAX, GLYCOLAX) 17 g ORAL/FEEDING TUBE DAILY docusate sodium 100 mg cap(s) (COLACE) 100 mg ORAL BID senna 8.6 mg tab(s) (SENOKOT) 8.6 mg ORAL/FEEDING TUBE BID pantoprazole DR 40 mg tab(s) (PROTONIX) 40 mg ORAL DAILY (6 AM) ondansetron 8 mg tab(s) (ZOFRAN) 8 mg ORAL q 8 H PRN diphenhydrAMINE 50 mg (BENADRYL) 50 mg ORAL/FEEDING TUBE q 6 H PRN sulfamethoxazole-trimethoprim 400-80 mg 2 tablet (BACTRIM,SEPTRA) 2 tablet ORAL/FEEDING TUBE hydrocortisone sodium succinate (PF) 100 mg injection (Solu- CORTEF) 100 mg INTRAVENOUS q 4 H PRN diphenhydrAMINE 50 mg injection (BENADRYL) 50 mg INTRAVENOUS q 4 H PRN prochlorperazine 5 mg injection (COMPAZINE) 5 mg INTRAVENOUS q 6 H PRN 0.9% NaCl 2-10 mL 2-10 mL INTRAVENOUS PRN 0.9% NaCl 3-5 mL 3-5 mL INTRAVENOUS q 12 H dextrose 50% in water 25-50 mL syringe 12.5-25 g INTRAVENOUS PRN dextrose 40 % 15 g 15 g ORAL PRN glucagon 1 mg injection (GLUCAGEN) 1 mg SUBCUTANEOUS PRN acetaminophen 650 mg tab(s) (TYLENOL) 650 mg ORAL/FEEDING TUBE q 6 H PRN acetaminophen 650 mg suppository (TYLENOL) 650 mg RECTAL q 6 H PRN FLUID BALANCE: Intake/Output Summary (Last 24 hours) at 11/10/17 1239 Last data filed at 11/10/17 0900 Gross per 24 hour Intake 2283 ml Output 1475 ml Net 808 ml DATA: LABS: CBC, Coags, BMP, Mg, Phos Recent Labs 11/10/17 0336 11/09/17 0549 11/08/17 0039 WBC 6.21 5.69 6.77 HB 9.8* 10.1* 9.0* HCT 29.8* 30.2* 27.0* PLT 29* 36* 28* NA 135* 138 133* K 3.9 3.4* 3.7 CHLOR 95* 96* 94* CO2 27 26 24 BUN 56* 57* 59* CREAT 0.96 1.29* 1.19* GLUC 91 88 112* CA 8.8 8.9 8.7 MG 1.9 2.0 2.1 P 3.3 3.8 3.6 Liver Function, Amylase, AND Lipase ASSESSMENT AND PLAN: - Retroperitoneal hematoma ? ? Retroperitoneal bleed: s/p 7 units PRBCs s/p IR emobolization of left L3 artery at [facility] on 10/23 IR embolization of left L2 and L3 arteries on 10/26 CT abd/pel 10/31: RP bleed stable when compared to previous imaging from 10/27 LDH 1730, haptoglobin <10, Tbili 1.3- concern for hemolysis as well. Per heme, thrombocytopenia and anemia likely related to cytoxan with stressed BM Cytoxan reduced to 75 mg daily--> held on 11/09/2017 ? Plan: Continue to monitor HANDH and transfuse PRBC if Hb<7 or symptomatic Continue to hold Anticoagulation until approved by Vascular medicine- initially recommended holding AC for at least 14 days since last bleeding. (Hb stabilized around 11/01) ? ? - Anti-phospholipid antibody syndrome (HCC) ? ? 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 Has received stenting of IVC and iliacs along with endograft of IVC. 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 C/B extensive RP bleed s/p L2, L3 embolization. ? Plan: Continue Cytoxan 75 mg(held 11/09/2017) and prednisone 60 mg with bactrim ppx Appreciate hematology and recs Received Apheresis on 10/31 and 11/03 Hematology is following THORPE evaluation sent-->negative ? - CAPRICE (acute kidney injury) (HCC) ? ? CAPRICE on CKD III, 2/ contrast, now requiring dialysis First HD at [facility] on 10/25 with tunneled dialysis catheter placement followed by [address] Abdomen/pelvis from 10/26 showed occlusion of B/L renal veins, outflow not appreciated- could be attributing to CAPRICE and CKD Bladder scan 10/29- UOP improving Plan: Nephrology following- appreciate recommendations Daily BMPs to watch K, Na and phosphorus levels Renal dosing of medication Monitor off lasix given the uptrend in creatinine to 1.40 on 11/07/2017 Creatinine downtrended to 1.29 on 11/09/2017--> 0.96 on 11/10/2017 Estimated Creatinine Clearance: 97 mL/min (based on SCr of 0.96 mg/dL). ? - HTN (hypertension) ? ? Mildly decreased systolic function, diastolic function indeterminate on 10/13/17 ECHO. 10/28: Run of SBP in 200s overnight (likely d/t pain), given hydralazine however still consistently in 170s-180s 10/29: Still hypertensive, required 4 doses of hydralazine overnight Currently on Amlodipine 10 mg and Coreg 6.25 mg BID ? Plan: Switched to Nifedipine from Amlodipine, will continue carvedilol for now. uptitrate as tolerated ? - Diffuse pulmonary alveolar hemorrhage ? ? Currently stable, no new episodes Has had 6 admissions recently for acute respiratory failure requiring mechanical ventilation Cytoxan was reduced from 150 to 75 mg due to concern for BM toxicity ? Plan: Continue to monitor respiratory status Continue oxygen therapy at 2L NC Continue Cytoxan 75 mg QD renally dosed--> held from 11/09/2017 Continue Prednisone 60 mg daily with Bactrim PPX ? - Moraxella catarrhalis pneumonia (HCC) ? ? Had respiratory cultures growing Moraxella catarrhalis Received ceftriaxone 10/27-11/03- 7 days therapy WBC trended down from 21 K to 12K. Currently at baseline O2 requirement but still slightly tachypneic Ceftriaxone discontinued after 7 days of treatment Plan: Continue to monitor respiratory status closely BPH per RT Incentive spirometry CXR given concern of hemoptysis ? - Peripheral neuropathy - History of heparin-induced thrombocytopenia ? ? Avoid all heparin products. ? - Weakness of left leg ? ? 11/02 Left leg weakness/parasthesia Likely related to lumbar nerve compression from large retroperitoneal hematoma Neurology was following, recommended no further intervention On gabapentin ? - Right groin pain ? ? 10/27: C/o acute pain this morning, access site for embolization at [facility], no erythema or induration appreciated on exam, exquisitely TTP Groin study showed no signs of PSA, known AV fistula visualized with retrograde flow, vascular med aware- no further recs 10/28: pain less severe, no physical exam findings Repeat Leg DVT shows no pseudoaneurysm Likely due to nerve compression/RP hematoma causing compressive symtpoms S/p R groin bag placed at [facility] on 10/24 s/p L groin bag placed at [facility] during embolization on 10/26 Plan: - Pain management-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 WAITER/WAITRESS CABIN CLASS as of transfer to [facility] - Will continue to wean dilaudid as pt tolerates, currently kept her on Dilaudid 0.4 mg q4h PRN for pain ? SIGNATURE: Dayton Acuna MD, PGY2 PAGER: [phone] DATE of SERVICE: November 10, 2017 TIME of SERVICE: 6:39 PM This note is not final until signed by a Staff Physician DR. FRED STONE, SR. HOSPITAL STAFF PHYSICIAN NOTE OF PERSONAL INVOLVEMENT IN CARE ? I have reviewed the progress note?obtained and documented by the resident?and I personally participated in the fernandes components. I have discussed the case and management of the patient's care. The following comments revise or confirm relevant fernandes components of their note. ? ?IMPRESSION:?This is a 27 year old female catastrophic APS complicated by PE/DVT, DAH , HIT was on senior living coumadin, cytoxan , prednisone and pheresis. Recent admission for DAH. Discharged on ?fondaparinux?7.5mg daily? 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 Clinically stable, but having more productive cough , no hemoptyis persistent thrombocytopenia. Hgb stable, To stop cytoxan and a dose of Nplate given in attempt to improve platelet count ? PLAN:?as delineated above Check CXR Follow platelet count Continue to hold anticoagulation for now until thrombocytopenia improves and stable Edson Mohr MD November 10, 2017 1:37 PM ? CBC Collected: 11/10/2017 Status: F Source: [place] 3:36 AM [facility] REPOSITORY TYPE CODE TESTS RESULT OUT OF REFERENCE UNITS RANGE LAB WBC 3.70-11.00 k/uL WBC 6.21 LAB RBC 3.90-5.20 m/uL Low RBC 3.06 LAB HGB 11.5-15.5 g/dL Low Hemoglobin 9.8 LAB HCT 36.0-46.0 % Low Hematocrit 29.8 LAB MCV 80.0-100.0 fL MCV 97.4 LAB MCH 26.0-34.0 pG MCH 32.0 LAB MCHC 30.5-36.0 g/dL MCHC 32.9 LAB RDWCV 11.5-15.0 % RDW-CV High 25.3 LAB PLTCT 150-400 k/uL Low Platelet Count 29 Result Comment: Result checked and verified No clot detected. LAB MPV 9.0-12.7 fL MPV <<DO NOT REPORT>> LAB ABSNUC <0.01 k/uL <0.01 Absolute nRBC Performed By: #### CBC, MG1, PHOS, BMP #### [facility] [address] [place], [place] [address] MAGNESIUM Collected: 11/10/2017 Status: F Source: [place] 3:36 AM [facility] REPOSITORY TYPE CODE TESTS RESULT OUT OF REFERENCE UNITS RANGE LAB MG 1.7-2.3 mg/dL Magnesium 1.9 Performed By: #### CBC, MG1, PHOS, BMP #### [facility] [address] [place], [place] [address] PHOSPHORUS Collected: 11/10/2017 Status: F Source: [place] 3:36 AM [facility] REPOSITORY TYPE CODE TESTS RESULT OUT OF REFERENCE UNITS RANGE LAB PHOS 2.7-4.8 mg/dL Phosphorus 3.3 Performed By: #### CBC, MG1, PHOS, BMP #### [facility] [address] [place], [place] [address] BASIC METABOLIC PANL Collected: 11/10/2017 Status: F Source: [place] 3:36 AM [facility] REPOSITORY TYPE CODE TESTS RESULT OUT OF REFERENCE UNITS RANGE LAB GLU 74-99 mg/dL Glucose 91 Result Comment: The [place] [employer] (ADA) provides guidance for cutoff values for fasting glucose and random glucose. The ADA defines fasting as no caloric intake for at least 8 hours. Fas ting plasma glucose results between 100 to 125 mg/dL indicate increased risk for diabetes (prediabetes). Fasting plasma glucose results greater than or equal to 126 mg/dL meet the criteria for diagnosis of diabetes. In the absence of unequivocal hyperglycemia, results should be confirmed by repeat testing. In a patient with classic symptoms of hyperglycemia or hyperglycemic crisis, random plasma glucose results greater than or equal to 200 mg/dL meet the criteria for diagnosis of diabetes. Reference: Standards of Medical Care in Diabetes 2016, [place] [employer]. Diabetes Care. 2016.39(Suppl 1). LAB BUN 7-21 mg/dL BUN High 56 LAB CRET 0.58-0.96 mg/dL Creatinine 0.96 LAB NA 136-144 mmol/L Low Sodium 135 LAB K 3.7-5.1 mmol/L Potassium 3.9 LAB CL 97-105 mmol/L Low Chloride 95 LAB CO2 22-30 mmol/L CO2 27 LAB AGAP 9-18 mmol/L Anion Gap 13 LAB CA 8.5-10.2 mg/dL Calcium, Total 8.8 LAB GFRAA eGFR- Amer. >60 LAB GFRNAA . eGFR-All Other Races >60 Result Comment: eGFR (Estimated GFR) Units of measure: mL/min/1.73 meters squared eGFR is derived from the reexpressed MDRD Study equation using the following parameters: serum creatinine, age, gender and race. The creatinine assay has been calibrated to be traceable to IDMS. An eGFR <60 mL/min/1.73m2 for >3 months is consistent with chronic kidney disease. Refer to KDOQI guidelines for clinical interpretation. In patients with unstable renal function, e.g. those with acute kidney injury, the eGFR may not accurately reflect actual GFR. Performed By: #### CBC, MG1, PHOS, BMP #### [facility] [address] [place], [place] [address] CONSULT PROG Observed: 11/09/2017 Status: COMPLETED Source: [place] 4:35 PM [facility] REPOSITORY HNO ID: [id number] Author: Justina Pollard (Cy) Service: Hematology Author Type: Physician Satellite Tv Technician Installer Type: Consult Progress Note Filed: 11/09/2017 4:45 PM Note Text: CONSULT PROGRESS NOTE SERVICE DATE: 11/09/2017 CONSULTING SERVICE: Hematology Subjective INTERVAL HPI: Doing well , no acute events overnight Hemoglobin is stable Current hospital medications: NIFEdipine ER 30 mg tab(s) (PROCARDIA XL) 30 mg ORAL DAILY HYDROmorphone 0.4 mg in NaCl 0.9% (DILAUDID) 0.4 mg INTRAVENOUS q 4 H PRN carvedilol 25 mg tab(s) (COREG) 25 mg ORAL/FEEDING TUBE BID w MEALS oxyCODONE IR 5-10 mg tab(s) (ROXICODONE) 5-10 mg ORAL/FEEDING TUBE q 4 H PRN predniSONE (DELTASONE) tab(s) 60 mg 60 mg ORAL/FEEDING TUBE DAILY calcium gluconate 3 g in NaCl 0.9% 1,000 mL 3 g INTRAVENOUS APHERESIS albumin (5%) 50 g infusion 1,000 mL INTRAVENOUS APHERESIS sodium citrate 4% 3-6 mL catheter lock 3-6 mL INTRALUMINAL APHERESIS PRN lidocaine 5 % 1 Patch (LIDODERM) 1 Patch TRANSDERMAL DAILY lidocaine patch - REMOVE OTHER AT BEDTIME lidocaine - VERIFY PATCH OTHER q 8 H gabapentin 300 mg cap(s) (NEURONTIN) 300 mg ORAL q 12 H cyclophosphamide (CYTOXAN) cap(s) 75 mg 75 mg ORAL DAILY polyethylene glycol 3350 17 g packet (MIRALAX, GLYCOLAX) 17 g ORAL/FEEDING TUBE DAILY docusate sodium 100 mg cap(s) (COLACE) 100 mg ORAL BID senna 8.6 mg tab(s) (SENOKOT) 8.6 mg ORAL/FEEDING TUBE BID pantoprazole DR 40 mg tab(s) (PROTONIX) 40 mg ORAL DAILY (6 AM) ondansetron 8 mg tab(s) (ZOFRAN) 8 mg ORAL q 8 H PRN diphenhydrAMINE 50 mg (BENADRYL) 50 mg ORAL/FEEDING TUBE q 6 H PRN sulfamethoxazole-trimethoprim 400-80 mg 2 tablet (BACTRIM,SEPTRA) 2 tablet ORAL/FEEDING TUBE hydrocortisone sodium succinate (PF) 100 mg injection (Solu- CORTEF) 100 mg INTRAVENOUS q 4 H PRN diphenhydrAMINE 50 mg injection (BENADRYL) 50 mg INTRAVENOUS q 4 H PRN prochlorperazine 5 mg injection (COMPAZINE) 5 mg INTRAVENOUS q 6 H PRN 0.9% NaCl 2-10 mL 2-10 mL INTRAVENOUS PRN 0.9% NaCl 3-5 mL 3-5 mL INTRAVENOUS q 12 H dextrose 50% in water 25-50 mL syringe 12.5-25 g INTRAVENOUS PRN dextrose 40 % 15 g 15 g ORAL PRN glucagon 1 mg injection (GLUCAGEN) 1 mg SUBCUTANEOUS PRN acetaminophen 650 mg tab(s) (TYLENOL) 650 mg ORAL/FEEDING TUBE q 6 H PRN acetaminophen 650 mg suppository (TYLENOL) 650 mg RECTAL q 6 H PRN Objective PHYSICAL EXAM: BP 142/71 Pulse 81 Temp (Src) 98.1 (Oral) Resp 18 Ht 5' 3 (1.60m) Wt 207 lb 10.8 oz (94.2kg) SpO2 93% BMI 36.80 kg/(m2). General: Alert, NAD. Heart/CV: ?Grossly RRR Lungs: CTA Abd: ?Soft, NT,ND Extremities/Skin: No rashes appreciated ? 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 Recent admission 10/13/17-10/23/17 for hemoptysis and SOB, requiring intubation, was in MICU for management of DAH. readmitted to MICU again for ?extensive left retroperitoneal hemorrhage?s/p IR guided intervention (initially on 10/23 at [facility] and 10/26 here at [facility]. ? # Antiphospholipid antibody syndrome -Current therapy : Prednisone 60 mg ( home dose 5 mg), Cytoxan 75 mg ( home dose 150 mg), pheresis on 11/03 ?-continue with current dose of steroids -Will d/c cytoxan given persistent thrombocytopenia, as this might he causing myelosuppression -AC is on hold due to recent bleeding and persistent thrombocytopenia. Will give N plate 2 mcg/kg SQ x 1 today in attempt to improve platelet count ? ? #Extensive left retroperitoneal hemorrhage -likely secondary to anticoagulant. Its an unfortunate case, she needs an anticoagulation for APS but bleeding episodes prohibits -sp IR intevention on 10/23 and 10/26? Last transfusion on 11/03- 2U of PRBC and 2 U of platelets - Please transfuse Platelets to keep Plt >30 K. Please check post transfusion CBC 1 hour after transfusion. ? #Abnormal hemolysis labs - with elevated LD, elevated retic, and an undetectable hapto. Hemoglobin has been stable. BPS reviewed again today ( 11/08) amd showed fewer RBC fragments ( 2-3 per HPF) - ?Direct [place] is negative -ADAMTS 13 activity resulted at 56 % speaking against TTP -Abnormal hemolysis labs might be related to resolving hematoma. Will follow Discussed with ? SIGNATURE: Justina Pollard PA-C PATIENT NAME: Paloma Cannon DATE: November 09, 2017 TIME: 4:35 PM PAGER: [phone] THERAPY NT Observed: 11/09/2017 Status: COMPLETED Source: [place] 1:37 PM [facility] REPOSITORY O ID: [id number] Author: Zahra Burks) Service: Occupational Therapy Author Type: Weigh And Charge Worker Type: Therapy (PT/OT/Speech/Resp) Filed: 11/09/2017 2:27 PM Note Text: Attestation signed by Yue Uriostegui at 11/09/2017 2:36 PM I reviewed and agree with the documentation corresponding to this therapy visit. SIGNATURE: BARRIE Maldonado DATE: November 09, 2017 TIME: 2:36 PM Occupational Therapy Treatment SERVICE DATE: 11/09/2017 SERVICE TIME: 1102 to 1213 ROOM: [place] [address] Recommended Discharge Disposition: Acute Rehab Justification For Post Acute Needs: Anticipate patient will tolerate 3 hours of daily therapy at the time of admission to post-acute setting;Anticipated community discharge;Cognition intact;Good family support;Good premorbid functional status;Good sitting tolerance;Medically complex;Motivated;Willing to participate;Anticipate that patient will require daily (5x/wk) skilled therapy in a post-acute facility setting at the time of acute hospital discharge Anticipated Discharge Needs: Undetermined OT Recommendations to Nursing: ADL?s in chair;Encourage patient participation with in-bed ADL?s;OOB for meals;With assist of 2 people Equipment: (TBD) OT 6 Clicks Score: 17 Precautions/Activity Restrictions: Fall Risk;Lines/Tubes/Drains ASSESSMENT: Patient presents with improved activity tolerance and progress towards goals. Pt would benefit from acute rehab level of therapy prior to home going to improve functional performance, safety and independence with I/ADLs. Patient Disposition at Start of Session: Supine in Bed Patient Disposition at End of Session: Supine in Bed Tolerated Full Session Occupational Therapy Problem List: Edema;Impaired Self Care;Decreased Activity Tolerance;Decreased Strength;Functional Mobility Impairment;Balance Impaired Patient /Caregiver Goals: Go Home Goals for Plan of Care: Able to perform HEP with: Modified Independent (PROGRESSING) Grooming with: Modified Independent (PROGRESSING) Upper Body Bathing with: Modified Independent Upper Body Dressing with: Modified Independent Lower Body Bathing with: Modified Independent Lower Body Dressing with: Modified Independent (PROGRESSING) Toilet Hygiene with: Modified Independent Toilet Transfer with: Modified Independent Tolerate (minutes of functional activity): (MET) Functional Activity with: Modified Independent (PROGRESSING) Demonstrate Positive Coping Strategies with: Modified Independent (PROGRESSING) Demonstrate Competence With Education with: Modified Independent Progress Toward Goals: Progressing as expected Rehab Potential: Excellent PLAN: Treatment Frequency (times per week): 2 (+ 2 PRN per week) Current admission Treatment Interventions: Education;Self Care / Home Management;Energy Conservation Training;Strengthening;Functional Mobility Training;Balance Training;Edema Management;Pain Management Plan of Care developed with: Patient TREATMENT INTERVENTIONS: Therapy Diagnosis: Decreased activities of daily living (ADL) Interventions Provided: Therapeutic Exercise (27238);Therapeutic Activity (35386);Self Nursing Home Management (90962) Therapeutic Exercise (44891) Treatment Minutes: 28 2 units Skilled Intervention(s): Instructed pt through bilateral upper extremity exercises to increase strength, endurance, and functional range of motion needed for improved tolerance with I/ADLs and functional mobility in prep for household distances. Provided cues for pursed lip breathing, pacing range of motion, and optimal alignment and recruitment. Pt completed the following exercises x10 reps, 1 set as follows. Pt completed while seated at EOB. - shoulder flexion/extension, shoulder abd/adduction, chest press, elbow flexion, elbow extension, Therapeutic Activity (54005) Treatment Minutes: 15 1 unit Skilled Intervention(s): Instructed patient in log roll technique moving to/from supine and seated at EOB. Pt required increased time for advancement of BLEs while moving to EOB with HOB elevated. Provided tactile facilitation with max A for BLE advancement when moving to a supine position. Facilitated static/dynamic sitting at EOB x45 minutes. No LOB. Demonstrated compensatory technique by flexed posture and leaning onto one arm at a time for additional support. Self Nursing Home Management (77427) Treatment Minutes: 28 2 units Skilled Intervention(s): Provided S/U for oral hygiene while seated at EOB. Instructed pt on medicine management task to improve safety, independence, understanding, and compliance in prep for home going. Created simulated task based off of [employer] using fake pills and 4x a day pill sorter. Facilitated utilization of simulated instructions. - Provided supervision for reading and comprehension of instruction. - Provided supervision for attention to task. - Provided supervision for memory. - Provided supervision for tracking and correctly placing pills. - Provided supervision for problem solving - No errors. Facilitated reflection on activity to increase awareness of functional limitations and implement Strategies and education of techniques for planning, organization, and safety. Educated and instructed on adaptive techniques and cognitive prosthetics to facilitate memory, recall, orientation regarding medicine management Total Timed Code Treatment Minutes: 71 Total Treatment Time (minutes): 71 Physician signature certifies treatment plan of care established above for the period of 11/09/2017 through 11/23/2017. 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, CKD, HF, HTN, polyneuropathy Patient Report: Reports fear with mobility. 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 Entry To Home: No Stairs Number Of Stairs To Bed/Bath: 0 Tub/Shower Type: walk in shower Equipment Owned: Commode-Raised;Grab Bars-Shower;Grab Bars-Toilet;Shower Chair;Home Oxygen Prior Functional Level: Required Assistance Assistance Required With: Cleaning;Laundry;Meals;Shopping;Transportation Prior Wound Care: Other: See Comment (unable to don compression stockings (I)) OBJECTIVE: Orientation Deficits: Other: See Comment (Improved orientation to self and situation. NA time/day) Responsiveness: Alert Follows Commands: 3-step Commands;Cueing Needed Cueing to Follow Commands: Minimum Psychosocial Deficit: depressed, anxious CURRENT FUNCTIONAL STATUS: Current Activities of Daily Living Assist Level Feeding Set Up Grooming Set Up Bathing Upper Body Minimal Assistance Bathing Lower Body Moderate Assistance Dressing Upper Body Minimal Assistance Dressing Lower Body Total Assistance (zuniga) Toileting Maximal Assistance Instrumental Activities of Daily Living Assist Level Meal/Beverage Prep Light Cleaning Laundry Medication Management with Strategies Supervision Functional Mobility Assist Level Rolling Minimal Assistance Supine to Sit Minimal Assistance Sit to Supine Moderate Assistance Scooting Moderate Assistance Sit to Stand Other: See Comment (NA) Stand to Sit Other: See Comment (NA) Bed to Chair Other: See Comment (NA) (NA) Toilet/Commode Functional Mobility Please see discipline specific clinical documentation flowsheet for complete details for this therapy evaluation/treatment. SIGNATURE: ELROY Perez PATIENT NAME: Paloma Cannon DATE: November 09, 2017 TIME: 1:37 PM PAGER: [phone] PROGRESS Observed: 11/09/2017 Status: COMPLETED Source: [place] 11:38 AM [facility] REPOSITORY HNO ID: [id number] Author: Edson Mohr Service: General Internal Medicine Author Type: Physician Type: Progress Notes Filed: 11/09/2017 1:58 PM Note Text: DEPARTMENT OF INTERNAL MEDICINE: PROGRESS NOTE PRIMARY TEAM: RAF Terry Weekdays 7 am to 5 pm/Weekend 7 am to 3 pm: Page [phone] days 5 pm to 7 am/Weekend 3 pm to 7 am: [employer] Pager [phone] PATIENT NAME: Paloma Cannon BRIEF PLAN FOR TODAY: - Continue Cytoxan and Prednisone - Continue bactrim prophylaxis - Encouraged patient to use Oxycodone for moderate and severe pain and Dilaudid only for breakthrough pain with which she is compliant - Hold off additional diuresis for 11/09/2017 - Will check daily CBC - Incentive spirometry - Hold AC for now until platelets are stable. Will discuss with hematology - Elevate bilateral lower extremities - Nifedipine for HTN, uptitrate as needed. Continue Carvedilol - Disposition: Acute Rehabilitation INTERVAL HPI: No acute events overnight. She was on the hypertensive side overnight but asymptomatic. Pain appears to be better controlled. Transfused with 1 unit of platelet with platelets from 28-->36. Labs: Hgb: 9.3-->9.5-->9.7-->9.0-->10.1 Creatinine: 1.10-->1.40-->1.19-->1.29 Plt: 40-->34-->28-->36 PHYSICAL EXAM: BP 158/77 Pulse 95 Temp 36.6 ?C (97.8 ?F) (Oral) Resp 22 Ht 160 cm (5' 3) Wt 94.2 kg (207 lb 10.8 oz) SpO2 93% BMI 36.79 kg/m? General: Alert and oriented, no apparent distress HEENT: No cervical lymphadenopathy, no pharyngeal erythema Heart: Regular rate and rhythm, s1s2, no murmurs rubs or gallops Lungs: Clear to auscultation bilaterally Abdomen: Positive bowel sounds, soft, nontender, nondistended Extremities: Warm, no peripheral edema, +2 DP pulses bilaterally Neuro: Moving all extremities freely MEDICATIONS: Current hospital medications: NIFEdipine ER 30 mg tab(s) (PROCARDIA XL) 30 mg ORAL DAILY HYDROmorphone 0.4 mg in NaCl 0.9% (DILAUDID) 0.4 mg INTRAVENOUS q 4 H PRN carvedilol 25 mg tab(s) (COREG) 25 mg ORAL/FEEDING TUBE BID w MEALS oxyCODONE IR 5-10 mg tab(s) (ROXICODONE) 5-10 mg ORAL/FEEDING TUBE q 4 H PRN predniSONE (DELTASONE) tab(s) 60 mg 60 mg ORAL/FEEDING TUBE DAILY calcium gluconate 3 g in NaCl 0.9% 1,000 mL 3 g INTRAVENOUS APHERESIS albumin (5%) 50 g infusion 1,000 mL INTRAVENOUS APHERESIS sodium citrate 4% 3-6 mL catheter lock 3-6 mL INTRALUMINAL APHERESIS PRN lidocaine 5 % 1 Patch (LIDODERM) 1 Patch TRANSDERMAL DAILY lidocaine patch - REMOVE OTHER AT BEDTIME lidocaine - VERIFY PATCH OTHER q 8 H gabapentin 300 mg cap(s) (NEURONTIN) 300 mg ORAL q 12 H cyclophosphamide (CYTOXAN) cap(s) 75 mg 75 mg ORAL DAILY polyethylene glycol 3350 17 g packet (MIRALAX, GLYCOLAX) 17 g ORAL/FEEDING TUBE DAILY docusate sodium 100 mg cap(s) (COLACE) 100 mg ORAL BID senna 8.6 mg tab(s) (SENOKOT) 8.6 mg ORAL/FEEDING TUBE BID pantoprazole DR 40 mg tab(s) (PROTONIX) 40 mg ORAL DAILY (6 AM) ondansetron 8 mg tab(s) (ZOFRAN) 8 mg ORAL q 8 H PRN diphenhydrAMINE 50 mg (BENADRYL) 50 mg ORAL/FEEDING TUBE q 6 H PRN sulfamethoxazole-trimethoprim 400-80 mg 2 tablet (BACTRIM,SEPTRA) 2 tablet ORAL/FEEDING TUBE hydrocortisone sodium succinate (PF) 100 mg injection (Solu- CORTEF) 100 mg INTRAVENOUS q 4 H PRN diphenhydrAMINE 50 mg injection (BENADRYL) 50 mg INTRAVENOUS q 4 H PRN prochlorperazine 5 mg injection (COMPAZINE) 5 mg INTRAVENOUS q 6 H PRN 0.9% NaCl 2-10 mL 2-10 mL INTRAVENOUS PRN 0.9% NaCl 3-5 mL 3-5 mL INTRAVENOUS q 12 H dextrose 50% in water 25-50 mL syringe 12.5-25 g INTRAVENOUS PRN dextrose 40 % 15 g 15 g ORAL PRN glucagon 1 mg injection (GLUCAGEN) 1 mg SUBCUTANEOUS PRN acetaminophen 650 mg tab(s) (TYLENOL) 650 mg ORAL/FEEDING TUBE q 6 H PRN acetaminophen 650 mg suppository (TYLENOL) 650 mg RECTAL q 6 H PRN FLUID BALANCE: Intake/Output Summary (Last 24 hours) at 11/09/17 1138 Last data filed at 11/09/17 0837 Gross per 24 hour Intake 1362 ml Output 2300 ml Net -938 ml DATA: LABS: CBC, Coags, BMP, Mg, Phos Recent Labs 11/09/17 0549 11/08/17 0039 11/07/17 0430 WBC 5.69 6.77 9.11 HB 10.1* 9.0* 9.4* HCT 30.2* 27.0* 28.8* PLT 36* 28* 33* NA 138 133* 133* K 3.4* 3.7 3.5* CHLOR 96* 94* 93* CO2 26 24 25 BUN 57* 59* 57* CREAT 1.29* 1.19* 1.40* GLUC 88 112* 142* CA 8.9 8.7 8.9 MG 2.0 2.1 1.6* P 3.8 3.6 3.8 Liver Function, Amylase, AND Lipase ASSESSMENT AND PLAN: - Retroperitoneal hematoma ? ? Retroperitoneal bleed: s/p 7 units PRBCs s/p IR emobolization of left L3 artery at [facility] on 10/23 IR embolization of left L2 and L3 arteries on 10/26 CT abd/pel 10/31: RP bleed stable when compared to previous imaging from 10/27 LDH 1730, haptoglobin <10, Tbili 1.3- concern for hemolysis as well. Per heme, thrombocytopenia and anemia likely related to cytoxan with stressed BM Cytoxan reduced to 75 mg daily ? Plan: Continue to monitor HANDH and transfuse PRBC if Hb<7 or symptomatic Continue to hold Anticoagulation until approved by Vascular medicine- initially recommended holding AC for at least 14 days since last bleeding. (Hb stabilized around 11/01) ? ? - Anti-phospholipid antibody syndrome (HCC) ? ? 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 Has received stenting of IVC and iliacs along with endograft of IVC. 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 C/B extensive RP bleed s/p L2, L3 embolization. ? Plan: Continue Cytoxan 75 mg and prednisone 80 mg with bactrim ppx Appreciate hematology and VM recs Received Apheresis on 10/31 and 11/03 Hematology is following THORPE evaluation sent-->negative ? - CAPRICE (acute kidney injury) (HCC) ? ? CAPRICE on CKD III, 2/2 contrast, now requiring dialysis First HD at [facility] on 10/25 with tunneled dialysis catheter placement followed by [address] Abdomen/pelvis from 10/26 showed occlusion of B/L renal veins, outflow not appreciated- could be attributing to CAPRICE and CKD Bladder scan UOP improving Creatinine trending up to 1.4 on 11/07/2017 Plan: Nephrology following- appreciate recommendations Daily BMPs to watch K, Na and phosphorus levels Renal dosing of medication Monitor off lasix given the uptrend in creatinine to 1.40 on 11/07/2017 Creatinine downtrended to 1.29 on 11/09/2017 Estimated Creatinine Clearance: 70.8 mL/min (A) (based on SCr of 1.29 mg/dL (H)). ? - HTN (hypertension) ? ? Mildly decreased systolic function, diastolic function indeterminate on 10/13/17 ECHO. 10/28: Run of SBP in 200s overnight (likely d/t pain), given hydralazine however still consistently in 170s-180s 10/29: Still hypertensive, required 4 doses of hydralazine overnight Currently on Amlodipine 10 mg and Coreg 6.25 mg BID ? Plan: Switched to Nifedipine from Amlodipine, will continue carvedilol for now. uptitrate as tolerated ? - Diffuse pulmonary alveolar hemorrhage ? ? Currently stable, no new episodes Has had 6 admissions recently for acute respiratory failure requiring mechanical ventilation Cytoxan was reduced from 150 to 75 mg due to concern for BM toxicity ? Plan: Continue to monitor respiratory status Continue oxygen therapy at 2L NC Continue Cytoxan 75 mg QD renally dosed Continue Prednisone 60 mg daily with Bactrim PPX ? - Moraxella catarrhalis pneumonia (HCC) ? ? Had respiratory cultures growing Moraxella catarrhalis Received ceftriaxone 10/27-11/03- 7 days therapy WBC trended down from 21 K to 12K. Currently at baseline O2 requirement but still slightly tachypneic Ceftriaxone discontinued after 7 days of treatment Plan: Continue to monitor respiratory status closely BPH per RT Incentive spirometry ? - Peripheral neuropathy - History of heparin-induced thrombocytopenia ? ? Avoid all heparin products. ? - Weakness of left leg ? ? 11/02 Left leg weakness/parasthesia Likely related to lumbar nerve compression from large retroperitoneal hematoma Neurology was following, recommended no further intervention On gabapentin renally dosed. ? - Right groin pain ? ? 10/27: C/o acute pain this morning, access site for embolization at [facility], no erythema or induration appreciated on exam, exquisitely TTP Groin study showed no signs of PSA, known AV fistula visualized with retrograde flow, vascular med aware- no further recs 10/28: pain less severe, no physical exam findings Repeat Leg DVT shows no pseudoaneurysm Likely due to nerve compression/RP hematoma causing compressive symtpoms S/p R groin bag placed at [facility] on 10/24 s/p L groin bag placed at [facility] during embolization on 10/26 Plan: - Pain management-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 WAITER/WAITRESS CABIN CLASS as of transfer to [facility] - Will continue to wean dilaudid as pt tolerates, currently kept her on Dilaudid 0.4 mg q4h PRN for pain ? ? ? SIGNATURE: Dayton Acuna MD, PGY2 PAGER: [phone] DATE of SERVICE: November 09, 2017 TIME of SERVICE: 11:38 AM This note is not final until signed by a Staff Physician DR. FRED STONE, SR. HOSPITAL STAFF PHYSICIAN NOTE OF PERSONAL INVOLVEMENT IN CARE ? I have reviewed the progress note obtained and documented by the resident and I personally participated in the fernandes components. I have discussed the case and management of the patient's care. The following comments revise or confirm relevant fernandes components of their note. ? 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 Recent admission for DAH. Discharged on ?fondaparinux?7.5mg daily? 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 Clinically stable Renal function stable Good UO Hgb stable, thrombocytopenia responded to platelet transfusion low suspicion of TMA, peripheral blood smear showed fewer schistocytes ADAMTS 13 54% unlikely TTP ? ? PLAN:?as delineated above continue to hold anticoagulation for now until thrombocytopenia improves and stable Edson Mohr MD November 09, 2017 1:58 PM CASE MANAGEM Observed: 11/09/2017 Status: COMPLETED Source: [place] 11:16 AM [facility] REPOSITORY O ID: [id number] Author: Jacinta Aguilar (Rn) JEFF Olmedo Service: Care Management Author Type: Registered Nurse Type: Care Mgt Progress Note Filed: 11/09/2017 11:17 AM Note Text: CARE MANAGEMENT PROGRESS NOTE SERVICE DATE: 11/09/2017 SERVICE TIME: 11:16 AM LOS: 15 days Needs Prior to Discharge: Accepting Facility;Discharge Transportation;Facility or Agency Choices;Insurance Authorization;Patient/Family Dc date TBD AR contact Is Krysta (p) [phone] (please contact directly rather through ecin) . Per Krysta, pt would like AR placement as close to home as possible- [facility] vs [facility] vs [facility]. Referal sent and awaiting response from [facility]. Pt will need close lab montoring (2x/day) of blood status for possible need for transfusion. [facility] may be the best option and pt would be agreeable if not accepted by [facility] or [facility]. Current on 2LO2/nc, has home O2 2L 02 via [employer]. .Apheresis, IHD (may be short term). If pt presents to bedside please contact Krysta at (p) [phone]. cm to continue to follow SIGNATURE: Jacinta Olmedo RN PATIENT NAME: Paloma Cannon DATE: November 09, 2017 TIME: 11:16 AM PAGER/CONTACT #: [phone] ALLIED HEALTH Observed: 11/09/2017 Status: COMPLETED Source: [place] 10:00 AM [facility] REPOSITORY HNO ID: [id number] Author: Kayla Levin (Therapist), [place] Service: Music Therapy Author Type: Music Therapist Type: Allied Health Filed: 11/10/2017 9:17 AM Note Text: MUSIC THERAPY NOTE SERVICE DATE: 11/09/2017 Pt presented with neutral affect upon MT's arrival and was sitting up in bed. MT offered session, to which pt requested MT return at a later time as pt reported medical team was soon to see her. MT informed pt of schedule availability and was unable to return in the afternoon due to schedule conflict. MT will follow up as able. SIGNATURE: Kayla Levin [facility] PATIENT NAME: Paloma Cannon DATE: November 10, 2017 TIME: 9:16 AM PAGER/CONTACT #: [phone] ALLIED HEALTH Observed: 11/09/2017 Status: COMPLETED Source: [place] 9:53 AM [facility] REPOSITORY HNO ID: [id number] Author: Aline (Rn) JEFF Schreiber Service: Wound/Ostomy Author Type: Registered Nurse Type: Allied Health Filed: 11/09/2017 10:01 AM Note Text: ET/WOCN Nursing Consult Topic: ET/WOCN Consultation Note ET Outcome: Consulted to see patient for leaking L groin pouch. It appears cutting aperture too small for opening causing moderate swelling and covering drain site. Pouching system modified. ET's Next Scheduled Visit: 11/16 for weekly pouch change (if still need) Left Groin: puncture wound draining copious amount of serous fluid. Contour: sits in groin cease and hides when in sitting position. ? Surrounding skin: large area of ecchymosis, small abrasion noted at the 10o'clock site. On the abrasion, small amount of bleeding noted. used stomahesive powder and covered with [place] Hollihesive skin barrier wedge. ? Pouching: Removed: Kyle Hollihesive skin barrier washer cut open 3/4, wedge at 3 and 9 o'clock, then [place] premier flat urostomy pouch cut opening 1, connected to gravity drianage bag. Wear Time: 24 hours. Paste completely swelled Recommendations: Pouching System: Kyle Hollihesive wedge at 3 and 9 o'clock; 2x2 Hollihesive washer, cut to 7/8 x 1 (inner radial slits), caulk seams with stomahesive paste, [place] Premier Urostomy Pouch (outer radial slits), Adapt Oval Convex Ring ([id number] small), connected to gravity drainage, mefix tape. Wear Time: 7 days is the goal Comment: 1 set of supplies at bedside Time Increment: 45 minutes .Aline Schreiber RN, BSN, CWCN, COCN, CCCN WOC Nursing - Please place consult via [employer]. Thank you. (M-F: [phone]; Weekends AND Holidays: [phone]). Zahra Jacinto, RN, BSN (G90 Nursing Shadow) CBC Collected: 11/09/2017 Status: F Source: [place] 5:49 AM [facility] REPOSITORY TYPE CODE TESTS RESULT OUT OF REFERENCE UNITS RANGE LAB WBC 3.70-11.00 k/uL WBC 5.69 LAB RBC 3.90-5.20 m/uL Low RBC 3.09 LAB HGB 11.5-15.5 g/dL Low Hemoglobin 10.1 LAB HCT 36.0-46.0 % Low Hematocrit 30.2 LAB MCV 80.0-100.0 fL MCV 97.7 LAB MCH 26.0-34.0 pG MCH 32.7 LAB MCHC 30.5-36.0 g/dL MCHC 33.4 LAB RDWCV 11.5-15.0 % RDW-CV High 25.4 LAB PLTCT 150-400 k/uL Low Platelet Count 36 Result Comment: Result checked and verified No clot detected. LAB MPV 9.0-12.7 fL MPV <<DO NOT REPORT>> LAB ABSNUC <0.01 k/uL 0.02 High Absolute nRBC Performed By: #### CBC, MG1, PHOS, BMP #### [facility] [address] [address] MAGNESIUM Collected: 11/09/2017 Status: F Source: [place] 5:49 AM [facility] REPOSITORY TYPE CODE TESTS RESULT OUT OF REFERENCE UNITS RANGE LAB MG 1.7-2.3 mg/dL Magnesium 2.0 Performed By: #### CBC, MG1, PHOS, BMP #### [facility] [address] [address] PHOSPHORUS Collected: 11/09/2017 Status: F Source: [place] 5:49 AM [facility] REPOSITORY TYPE CODE TESTS RESULT OUT OF REFERENCE UNITS RANGE LAB PHOS 2.7-4.8 mg/dL Phosphorus 3.8 Performed By: #### CBC, MG1, PHOS, BMP #### [facility] [address] [address] BASIC METABOLIC PANL Collected: 11/09/2017 Status: F Source: [place] 5:49 AM [facility] REPOSITORY TYPE CODE TESTS RESULT OUT OF REFERENCE UNITS RANGE LAB GLU 74-99 mg/dL Glucose 88 Result Comment: The [place] Diabetes Association (ADA) provides guidance for cutoff values for fasting glucose and random glucose. The ADA defines fasting as no caloric intake for at least 8 hours. Fas ting plasma glucose results between 100 to 125 mg/dL indicate increased risk for diabetes (prediabetes). Fasting plasma glucose results greater than or equal to 126 mg/dL meet the criteria for diagnosis of diabetes. In the absence of unequivocal hyperglycemia, results should be confirmed by repeat testing. In a patient with classic symptoms of hyperglycemia or hyperglycemic crisis, random plasma glucose results greater than or equal to 200 mg/dL meet the criteria for diagnosis of diabetes. Reference: Standards of Medical Care in Diabetes 2016, [place] [employer] Association. Diabetes Care. 2016.39(Suppl 1). LAB BUN 7-21 mg/dL BUN High 57 LAB CRET 0.58-0.96 mg/dL Creatinine High 1.29 LAB NA 136-144 mmol/L Sodium 138 LAB K 3.7-5.1 mmol/L Low Potassium 3.4 LAB CL 97-105 mmol/L Low Chloride 96 LAB CO2 22-30 mmol/L CO2 26 LAB AGAP 9-18 mmol/L Anion Gap 16 LAB CA 8.5-10.2 mg/dL Calcium, Total 8.9 LAB GFRAA eGFR- Amer. 60 LAB GFRNAA . eGFR-All Other Races 49 Result Comment: eGFR (Estimated GFR) Units of measure: mL/min/1.73 meters squared eGFR is derived from the reexpressed MDRD Study equation using the following parameters: serum creatinine, age, gender and race. The creatinine assay has been calibrated to be traceable to IDMS. An eGFR <60 mL/min/1.73m2 for >3 months is consistent with chronic kidney disease. Refer to KDOQI guidelines for clinical interpretation. In patients with unstable renal function, e.g. those with acute kidney injury, the eGFR may not accurately reflect actual GFR. Performed By: #### CBC, MG1, PHOS, BMP #### [facility] [address], [place] [address] TYPE AND SCREEN Collected: 11/09/2017 Status: F Source: [place] 5:49 AM [facility] REPOSITORY TYPE CODE TESTS RESULT OUT OF REFERENCE UNITS RANGE LAB %ABR B ABO/RH(D) POSITIVE LAB % Antibody POS Screen Performed By: #### TSCR #### [facility] [address] [place], [place] [address] CONSULT PROG Observed: 11/08/2017 Status: COMPLETED Source: [place] 5:01 PM [facility] REPOSITORY HNO ID: [id number] Author: Luz Maria Wolfe Service: Hematology Author Type: Physician Type: Consult Progress Note Filed: 11/08/2017 5:56 PM Note Text: CONSULT PROGRESS NOTE SERVICE DATE: 11/08/2017 CONSULTING SERVICE: Hematology Subjective INTERVAL HPI: No acute events overnight Hemoglobin is stable PLT count dropped to 28 K today Current hospital medications: HYDROmorphone 0.4 mg in NaCl 0.9% (DILAUDID) 0.4 mg INTRAVENOUS q 3 H PRN carvedilol 25 mg tab(s) (COREG) 25 mg ORAL/FEEDING TUBE BID w MEALS oxyCODONE IR 5-10 mg tab(s) (ROXICODONE) 5-10 mg ORAL/FEEDING TUBE q 4 H PRN predniSONE (DELTASONE) tab(s) 60 mg 60 mg ORAL/FEEDING TUBE DAILY calcium gluconate 3 g in NaCl 0.9% 1,000 mL 3 g INTRAVENOUS APHERESIS albumin (5%) 50 g infusion 1,000 mL INTRAVENOUS APHERESIS sodium citrate 4% 3-6 mL catheter lock 3-6 mL INTRALUMINAL APHERESIS PRN lidocaine 5 % 1 Patch (LIDODERM) 1 Patch TRANSDERMAL DAILY lidocaine patch - REMOVE OTHER AT BEDTIME lidocaine - VERIFY PATCH OTHER q 8 H gabapentin 300 mg cap(s) (NEURONTIN) 300 mg ORAL q 12 H cyclophosphamide (CYTOXAN) cap(s) 75 mg 75 mg ORAL DAILY polyethylene glycol 3350 17 g packet (MIRALAX, GLYCOLAX) 17 g ORAL/FEEDING TUBE DAILY docusate sodium 100 mg cap(s) (COLACE) 100 mg ORAL BID amLODIPine 10 mg tab(s) (NORVASC) 10 mg ORAL/FEEDING TUBE DAILY senna 8.6 mg tab(s) (SENOKOT) 8.6 mg ORAL/FEEDING TUBE BID pantoprazole DR 40 mg tab(s) (PROTONIX) 40 mg ORAL DAILY (6 AM) ondansetron 8 mg tab(s) (ZOFRAN) 8 mg ORAL q 8 H PRN diphenhydrAMINE 50 mg (BENADRYL) 50 mg ORAL/FEEDING TUBE q 6 H PRN sulfamethoxazole-trimethoprim 400-80 mg 2 tablet (BACTRIM,SEPTRA) 2 tablet ORAL/FEEDING TUBE hydrocortisone sodium succinate (PF) 100 mg injection (Solu- CORTEF) 100 mg INTRAVENOUS q 4 H PRN diphenhydrAMINE 50 mg injection (BENADRYL) 50 mg INTRAVENOUS q 4 H PRN prochlorperazine 5 mg injection (COMPAZINE) 5 mg INTRAVENOUS q 6 H PRN 0.9% NaCl 2-10 mL 2-10 mL INTRAVENOUS PRN 0.9% NaCl 3-5 mL 3-5 mL INTRAVENOUS q 12 H dextrose 50% in water 25-50 mL syringe 12.5-25 g INTRAVENOUS PRN dextrose 40 % 15 g 15 g ORAL PRN glucagon 1 mg injection (GLUCAGEN) 1 mg SUBCUTANEOUS PRN acetaminophen 650 mg tab(s) (TYLENOL) 650 mg ORAL/FEEDING TUBE q 6 H PRN acetaminophen 650 mg suppository (TYLENOL) 650 mg RECTAL q 6 H PRN Objective PHYSICAL EXAM: BP 167/69 Pulse 92 Temp (Src) 97.7 (Oral) Resp 20 Ht 5' 3 (1.60m) Wt 248 lb 0.3 oz (112.5kg) SpO2 96% BMI 43.95 kg/(m2). General: Alert, NAD. at bedside Heart/CV: ?Grossly RRR Lungs: CTA Abd: ?Soft, NT,ND Extremities/Skin: No rashes appreciated DATA: Component Latest Ref Rng AND Units 11/08/2017 [id number] Inhibitor <0.5 0.4 [id number] Activity >67 % 56 (L) [id number] Interp (NOTE) Component Latest Ref Rng AND Units 11/07/2017 11/08/2017 WBC 3.70 - 11.00 k/uL 9.11 6.77 RBC 3.90 - 5.20 m/uL 3.02 (L) 2.80 (L) Hemoglobin 11.5 - 15.5 g/dL 9.4 (L) 9.0 (L) Hematocrit 36.0 - 46.0 % 28.8 (L) 27.0 (L) MCV 80.0 - 100.0 fL 95.4 96.4 MCH 26.0 - 34.0 pG 31.1 32.1 MCHC 30.5 - 36.0 g/dL 32.6 33.3 RDW-CV 11.5 - 15.0 % 25.4 (H) 25.2 (H) Platelet Count 150 - 400 k/uL 33 (L) 28 (L) MPV 9.0 - 12.7 fL <<DO NOT REPORT>> <<DO NOT REPORT>> Review (for CBC/CBCDIF) Done Comment, CBC Few Absolute nRBC <0.01 k/uL 0.03 (H) 0.02 (H) Impression/Recommendations 27 y/o female?with PMHx of 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 Recent admission 10/13/17-10/23/17 for hemoptysis and SOB, requiring intubation, was in MICU for management of DAH. readmitted to MICU again for ?extensive left retroperitoneal hemorrhage?s/p IR guided intervention (initially on 10/23 at [facility] and 10/26 here at [facility]. ? # Antiphospholipid antibody syndrome -Current therapy : Prednisone 60 mg ( home dose 5 mg), Cytoxan 75 mg ( home dose 150 mg), pheresis on 11/03 -continue with current dose of steroids and cytoxan -AC is on hold due to recent bleeding. Would consider resuming AC 14 day from stable Hemoglobin . Will plan on coumadin, she will need bival bridging ? #Extensive left retroperitoneal hemorrhage -likely secondary to anticoagulant. Its an unfortunate case, she needs an anticoagulation for APS but bleeding episodes prohibits -sp IR intevention on 10/23 and 10/26 Last transfusion on 11/03- 2U of PRBC and 2 U of platelets - Please transfuse Platelets to keep Plt >30 K. Please check post transfusion CBC 1 hour after transfusion. ? #Abnormal hemolysis labs - with elevated LD, elevated retic, and an undetectable hapto. Hemoglobin has been stable. BPS reviewed again today ( 11/08) amd showed fewer RBC fragments ( 2-3 per HPF) - Direct [place] is negative -ADAMTS 13 activity resulted at 56 % speaking against TTP -Abnormal hemolysis labs might be related to resolving hematoma.? SIGNATURE: Justina Pollard PA-C PATIENT NAME: Paloma Cannon DATE: November 08, 2017 TIME: 5:01 PM PAGER: [phone] Addendum I have repeated the pertinent features of the history and examination and reviewed appropriate available diagnostics in this patient. I am in agreement with the plan as stated above. I discussed the above plan with the patient and I have answered questions asked by the patient. Pt clinically stable. Hb overall stable but platelets downtrend. Cr is stable and near normal. Smear reviewed and did show few schistocytes but improved compared to yesterday's smear. Would continue close observation and keep platelets >30 given recent bleeding. As stated above, 30min- 1 hour CBC check after platelet transfusion would be helpful. No concern for TTP at this time as clinically questioned by primary team yesterday. Will plan to keep cytoxan at same dose as hemoptysis is not active and we do not want to suppress marrow further. Will speak to pheresis team about her maintenance schedule (per would be best to restart on 11/13/17 for his schedule). Will plan for slow pred taper. Will follow daily Luz Maria Wolfe MD November 08, 2017 5:53 PM CITRATED PLT COUNT Collected: 11/08/2017 Status: F Source: [place] 2:30 PM [facility] REPOSITORY TYPE CODE TESTS RESULT OUT OF REFERENCE UNITS RANGE LAB PLTCIT 150-400 K/uL Low Citrated Plt 39 Count Result Comment: Result checked and verified No clot detected. Reviewed Sodium Citrate Sample. Performed By: #### CITPLT #### [facility] [address] [place], [place] [address] NUTRITION Observed: 11/08/2017 Status: COMPLETED Source: [place] 1:20 PM [facility] REPOSITORY HNO ID: [id number] Author: Thalia (Diet-T) Luli Service: Nutrition Therapy Author Type: Surveyor Helper Type: Nutrition Filed: 11/08/2017 1:33 PM Note Text: NUTRITION THERAPY FOLLOW-UP NOTE SERVICE DATE: 11/08/2017 SERVICE TIME: 12:50pm Anthropometrics: Height: 160 cm (5' 3) Current Weight: Weight: 112.5 kg (248 lb 0.3 oz) Body mass index is 43.93 kg/m?. Loss of lean body mass/visual muscle wasting: no Admitting Diagnosis: Retroperitoneal bleed [R58] Present Diet Order: Regular Is the patient having any pain that is interfering with oral/enteral intake? No Allergies: ALLERGIES Allergen Reactions - Rhubarb Rash, Hives - Heparin Other: See Comments Per patient history of HIT - was on angiomax however then took l fondaparinux for bridging to coumadin. - Iv Contrast [Iodine] Other: See Comments shuts kidneys down per patient - Rituximab Other: See Comments Elevated cardiac enzymes Reason for Visit: Food preferences: Patient requests Ensure High Protein at breakfast and Ensure Clear at dinner. Nutrient intake assessment: Current intake of meals: 25 - 100% Follow-up: Intervention from 11/02/17 Intakes: 11/07/17- 3354kcal 71g protein 11/06/17- 1305kcal 46g protein 11/05/17- 1869kcal 49g protein 11/04/17- 1892kcal 53g protein Ensure Clear provides 240kcal and 8g protein each Patient concerns/Issues: Patient states her appetite has been good. Had some nausea and vomiting this morning due to chemotherapy treatments but that has resolved. Denies issues with constipation or diarrhea. Taking Ensure Clear 3 times daily. Patient requests a change to Ensure High Protein with her breakfast and Ensure Clear at dinner, supplements are pending. Will continue to monitor for any changes. Nursing Admission Assessment Malnutrition Score Tool: 1 Plan of Care: Recommendation No problems noted at this time. Will screen again within 7 days Discharge Plan: Home on diet ordered MNT Billing Type: Routine Care/15 min 2 units SIGNATURE: Jorge Tineo-T PATIENT NAME: Paloma Cannon DATE: November 08, 2017 TIME: 1:20 PM PAGER: [phone] ALLIED HEALTH Observed: 11/08/2017 Status: COMPLETED Source: [place] 12:41 PM [facility] REPOSITORY HNO ID: [id number] Author: Tara (Rn) Manny Vann RN Service: Wound/Ostomy Author Type: Registered Nurse Type: Allied Health Filed: 11/08/2017 12:46 PM Note Text: ET/WOCN Nursing Consult Topic: ET/WOCN Consultation Note ET Outcome: Left Groin: puncture wound draining copious amount of serous fluid. The ER pouched area last night, the pouch was holding but started to wear out. Surrounding skin: large area of ecchymosis, small abrasion noted at the 9 o'clock site. On the abrasion, small amount of bleeding noted. used stomahesive powder and covered with [place] Hollihesive skin barrier. Pouching: Kyle Hollihesive skin barrier washer cut open 3/4, wedge at 3 and 9 o'clock, then Kyle premier flat urostomy pouch cut opening 1, connected to gravity drianage bag. Since the area was folded 1/2 due to groin and abdominal folds, it may be difficult to drain the fluid. One change supplies at the bed side. Will follow. ET's Next Scheduled Visit: 11/10 for discharge needs, may need lesson. TIME INCREMENT: 45 minutes EVI Ratliff RN CWOCN [facility] nursing pager [phone] (M-F 7a-4p, Sat, Sun, Holiday 7a-3p) CASE MANAGEM Observed: 11/08/2017 Status: COMPLETED Source: [place] 11:28 AM [facility] REPOSITORY HNO ID: [id number] Author: Carmita Zee (Lisw) Service: (none) Author Type: Toolmaker Helper Type: Care Mgt Progress Note Filed: 11/08/2017 11:31 AM Note Text: CARE MANAGEMENT PROGRESS NOTE SERVICE DATE: 11/08/2017 SERVICE TIME: 11:28 AM LOS: 14 days Needs Prior to Discharge: Accepting Facility;Insurance Authorization;Discharge Transportation ERIKA met with the patient and her spouse. They would like for the patient to go to [place] closer to their home in [place]. ERIKA provided a list. The patient chose [facility]. ERIKA sent the referral, waiting for a response. SIGNATURE: ISATU Katz PATIENT NAME: Paloma Cannno DATE: November 08, 2017 TIME: 11:28 AM PAGER/CONTACT #: [phone] [id number] EVALUATION Collected: 11/08/2017 Status: F Source: [place] 9:45 AM [facility] REPOSITORY TYPE CODE TESTS RESULT OUT OF REFERENCE UNITS RANGE LAB AD13IH <0.5 XESYNN57 0.4 Inhibitor Result Comment: This test was developed and its performance characteristics determined by [facility] [place] ([facility]). It has not been cleared or approved by the FDA. [facility] is regulated under CLIA as qualified to perform high-complexity testing. This test is used for clinical purposes. It should not be regarded as investigational or for research. LAB AD13A >67 % Low NMMJRE28 Activity 54 Result Comment: This test was developed and its performance characteristics determined by [facility] [place] ([facility]). It has not been cleared or approved by the FDA. -[facility] is regulated under CLIA as qualified to perform high-complexity testing. This test is used for clinical purposes. It should not be regarded as investigational or for research. LAB AD13AP YMCJOZ01 Act Interp (NOTE) Result Comment: Performing Pathologist: Lisseth Ashley M.D. Abnormal - see comment below. SIGNIFICANT FINDINGS: 1. 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 the UALLFV52 activity level is mildly decreased. FUIATC03 INHIBITOR SCREEN AND/OR INHIBITOR ASSAY: GSWLJV19 inhibitor assay was performed using mixing studies after 1:1 mixing of normal pooled plasma and the patient's plasma, and residual XTYAEI96 activity was measured using FRET technology. No ZVQOWG14 inhibitor is detected (< or = 0.4 Inhibitor Units). SUMMARY: Thrombotic thrombocytopenic purpura (TTP), idiopathic (autoimmune) type, is unlikely. If clinically indicated, consider ordering GZJUJS26 activity and/or inhibitor assay in a new specimen. If clinically indicated, antibody assay is suggested to rule out thrombotic thrombocytopenic purpura (TTP), idiopathic (autoimmune-related) type. Correlate with other clinical conditions associated with decreased WQLATU72 activity such as hemolytic uremic syndrome, hematopoietic stem cell or solid organ transplantation, sepsis, DIC, HIV infection, inflammation, bloody diarrhea, liver disease, , malignancy, or certain drug effects (e.g.,clopidogrel, cyclosporin, mitomycin C, ticlopidine, etc), and congenital RBZGOH32 deficiency (Skylar-Rafaela syndrome). Severe hemolysis (Hb 2 g/L), hyperbilirubinemia, hyperlipidemia and elevated von Willebrand factor antigen levels can interfere with OLGXAP52 activity assay. Recent transfusion or plasma exchange therapy can falsely normalize ARNQJP66 level, and mask the diagnosis of thrombotic thrombocytopenic purpura (TTP). Performed By: #### ADM13 #### [facility] [address] [address] CONSULT PROG Observed: 11/08/2017 Status: COMPLETED Source: [place] 9:28 AM [facility] REPOSITORY HNO ID: [id number] Author: Cheri Cuba Service: Nephrology Author Type: Physician Type: Consult Progress Note Filed: 11/08/2017 3:01 PM Note Text: CONSULT PROGRESS NOTE NEPHROLOGY SERVICE Subjective INTERVAL HISTORY: - made 900 cc urine yesterday - BP remains elevated MEDICATIONS: Current Medications Reviewed Objective PHYSICAL EXAM: BP 186/86 Pulse 91 Temp 36.4 ?C (97.6 ?F) (Oral) Resp 18 Ht 160 cm (5' 3) Wt 112.5 kg (248 lb 0.3 oz) SpO2 94% BMI 43.93 kg/m? Intake/Output Summary (Last 24 hours) at 11/08/17 0928 Last data filed at 11/08/17 0900 Gross per 24 hour Intake 241.2 ml Output 1275 ml Net -1033.8 ml Constitutional: No acute distress and Responsive Neck: supple Cardiovascular: Regular rate and ryhthm, S1 and S2, no rubs, or gallops 2+ peripheral edema Respiratory: Normal respiratory effort. No wheezing/rhonchi anteriorly Abdomen: Soft, positive bowel sounds Psychiatric: Normal mood/affect DATA: Diagnostic tests reviewed for today's visit: Most recent labs and imaging results. Recent Labs 11/08/17 0039 11/07/17 0430 11/06/17 0535 11/05/17 1908 11/05/17 0522 11/04/17 0510 NA 133* 133* 136 134* 135* 133* K 3.7 3.5* 3.5* 3.3* 3.0* 3.3* CHLOR 94* 93* 95* 92* 96* 95* CO2 24 25 28 21* 24 25 BUN 59* 57* 50* 45* 48* 45* CREAT 1.19* 1.40* 1.10* 1.14* 1.19* 1.24* GLUC 112* 142* 107* 195* 100* 143* ANION 15 15 13 21* 15 13 CA 8.7 8.9 8.6 8.4* 8.4* 8.6 P 3.6 3.8 3.3 -- 3.4 3.2 MG 2.1 1.6* 1.7 -- 1.7 1.9 Recent Labs 11/08/17 0039 11/07/17 0430 11/06/172002 WBC 6.77 9.11 8.54 HB 9.0* 9.4* 9.7* HCT 27.0* 28.8* 29.4* PLT 28* 33* 34* No results for input(s): INR, APTT in the last 168 hours. Recent Labs 10/24/17 0500 10/15/17 1223 10/13/17 1846 COLOR Straw* Yellow Red* CLARITY Hazy* Cloudy* Cloudy* UGLUC 150* Negative Negative UBILI Negative Negative 1+* UKET Negative Negative Negative SPGR 1.009 1.019 >1.030* UHB Large* 1+* 3+* UPH 9.0* 5.0 6.0 UPROT 100* 30* >=300* NITRITES Negative Negative Positive* LEUKEST Negative 1+* 2+* UWBC Negative 0-5 6-10* URBC Many* 3-5* >25* No results for input(s): PH, PCO2, PO2, LACT in the last 168 hours. Recent Labs 11/08/17 0039 11/06/17 0535 10/20/17 0415 06/09/17 1024 ALLA -- -- -- -- 156.0 -- 363.9* TRANSFERSAT -- -- 30 -- 9* -- 12* B12 -- -- -- -- -- -- 646 HB 9.0* < > 9.3* < > 8.9* < > -- < > = values in this interval not displayed. Recent Labs 11/08/17 0039 11/02/17 2340 CA 8.7 < > 8.4* P 3.6 < > 3.1 ALB -- -- 3.4* < > = values in this interval not displayed. Recent Labs 11/01/17 1702 11/01/17 1319 BUNRAT 62 -- BUNPR -- 45* BUNPO 17 -- Recent Labs 10/31/17 0830 HEPSABQ Negative Recent Labs 11/04/17 0510 11/02/17 2340 11/02/17 0120 TBILI 1.3 1.2 1.6* ALT -- 32 37 AST -- 34 45* ALKPHOS -- 79 75 No results for input(s): CK, CKMB, TROPT in the last 168 hours. No results for input(s): FK506 in the last 168 hours. No results for input(s): CSA in the last 168 hours. No results for input(s): RAPA in the last 168 hours. 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 Transferred from [facility]SH where she presented with CAPRICE in the setting of retroperioneal hemorrhage with mass effect on L kidney s/p embolization on 10/23 .Nephrology consulted for CAPRICE ? 1. 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 -Serological work up : low c3 and c4 - made 900 cc urine yesterday - BP remains elevated - Cr improved today to 1.19 from 1.4 yesterday ? ? 2.Anemia and thrombocytopenia ?-concern for Micro angiopathic hemolytic anemia hapto <10 , LDH 1730 , few RBC fragments seen ? Associated problems -Electrolytes: Hyponatremia - stable, hypochloremia - Volume status: hypervolemic -.Acid-base: bicarb within normal limits - Anemia and thrombocytopenia ?-multifactorial -blood loss , myelopsupression in the setting of cytoxan use -HTN -?Page kidney ? Active diagnoses Retroperitoneal hematoma Acute blood loss anemia HTN APS Moraxella Pneumonia ? PLAN - will hold off on IUF today and recommend starting PO lasix 80 mg BID - Strict I/O's, daily weights - Avoid nephrotoxic agents such as NSAIDs and IV contrast - Will discuss with staff ? ? Consent for PAINT COATING MACHINE OPERATOR: PAINT COATING MACHINE OPERATOR initiation date: 10/26/17 Consent obtained and in EMR. SIGNATURE: Catherine Oh MD PATIENT NAME: Paloma Cannon DATE: November 08, 2017 TIME: 9:28 AM PAGER: [phone] TEACHING PHYSICIAN NOTE OF PERSONAL INVOLVEMENT IN CARE I have reviewed the Progress Note obtained and documented by Fellow and I personally participated in the fernandes components. I have discussed the case and management of the patient's care with them. I agree with assessment and plan. In addition to above note: Renal function continues to recover Good urine output Avoid aggressive UF because of risk of worsening renal function If she is diuresing with meds recommend continuing with that If blood pressure tolerates it she can start metolazone 5mg MWF for a few weeks Cheri Cuba MD Beeper Number [id number] Authenticated by responsible provider. PROGRESS Observed: 11/08/2017 Status: COMPLETED Source: [place] 6:50 AM [facility] REPOSITORY HNO ID: [id number] Author: Dianna Sauer) JEFF Acevedo Service: (none) Author Type: Registered Nurse Type: Progress Notes Filed: 11/08/2017 6:50 AM Note Text: Nursing Progress Note Vital Ict Development Manager Assessment Note Patient Name: Paloma Cannon [address] Patient Vitals in the past 4 hrs: 11/08/17 0500, BP:186/86, Temp:36.4 ?C (97.6 ?F), Temp src:Oral, Pulse:91, Resp:18, SpO2:94 % Status Change Related to: Cardiac;Vascular Issues (See Nursing Clinical Assessment For Details) The Following People Were Notified: Keno Terminal Operator/Provider: See Documentation Related to: Continuous Monitoring;Medications Additional Comments : This note was completed by: Dianna Acevedo RN PROGRESS Observed: 11/08/2017 Status: COMPLETED Source: [place] 6:43 AM [facility] [place] REPOSITORY O ID: [id number] Author: Edson Mohr Service: General Internal Medicine Author Type: Physician Type: Progress Notes Filed: 11/08/2017 1:46 PM Note Text: DEPARTMENT OF INTERNAL MEDICINE: PROGRESS NOTE PRIMARY TEAM: RAF Terry Weekdays 7 am to 5 pm/Weekend 7 am to 3 pm: Page [phone] (Dayton Acuan) Weekdays 5 pm to 7 am/Weekend 3 pm to 7 am: [employer] Pager [phone] PATIENT NAME: Paloma Cannon BRIEF PLAN FOR TODAY: - Continue Cytoxan and Prednisone - Continue bactrim prophylaxis - Encouraged patient to use Oxycodone for moderate and severe pain and Dilaudid only for breakthrough pain - F/up with hematology regarding peripheral blood smear - Mobilize patient and PT/OT - Will give 1 dose of 40 mg IV lasix today and monitor UOP and trend creatinine - Strict I/O - Continue CBC q12H for now - Will check citrated platelet count 1 hour after platelet transfusion - Incentive spirometry - Will discuss with vascular medicine and hematology regarding bivalrudin (platelets have been dropping down-->will hold for now) - Elevate bilateral lower extremities - Disposition: Acute Rehabilitation INTERVAL HPI: No acute events overnight. Continues to remain hemodynamically stable. She did ambulate with PT/OT on 11/07/2017. Held additional IUF and diuretics on 11/07/2017. Continues to have good urine output without lasix as well. Labs: Hgb: 9.3-->9.5-->9.7-->9.0 Creatinine: 1.10-->1.40-->1.19 Plt: 40-->34-->28 Intake/Output Summary (Last 24 hours) at 11/08/17 1149 Last data filed at 11/08/17 1000 Gross per 24 hour Intake 721.2 ml Output 1275 ml Net -553.8 ml PHYSICAL EXAM: BP 153/77 Pulse 86 Temp 36.7 ?C (98.1 ?F) (Oral) Resp 18 Ht 160 cm (5' 3) Wt 112.5 kg (248 lb 0.3 oz) SpO2 95% BMI 43.93 kg/m? General: Alert and oriented, no apparent distress HEENT: No cervical lymphadenopathy, no pharyngeal erythema Heart: Regular rate and rhythm, s1s2, no murmurs rubs or gallops Lungs: Mild decrease in breath sounds at the base Abdomen: Positive bowel sounds, soft, nontender, nondistended Extremities: Warm, Bilateral lower extremity peripheral edema, +2 DP pulses bilaterally Neuro: Moving all extremities freely MEDICATIONS: Current hospital medications: carvedilol 25 mg tab(s) (COREG) 25 mg ORAL/FEEDING TUBE BID w MEALS oxyCODONE IR 5-10 mg tab(s) (ROXICODONE) 5-10 mg ORAL/FEEDING TUBE q 4 H PRN predniSONE (DELTASONE) tab(s) 60 mg 60 mg ORAL/FEEDING TUBE DAILY HYDROmorphone 0.4 mg injection (DILAUDID) 0.4 mg INTRAVENOUS q 3 H PRN calcium gluconate 3 g in NaCl 0.9% 1,000 mL 3 g INTRAVENOUS APHERESIS albumin (5%) 50 g infusion 1,000 mL INTRAVENOUS APHERESIS sodium citrate 4% 3-6 mL catheter lock 3-6 mL INTRALUMINAL APHERESIS PRN lidocaine 5 % 1 Patch (LIDODERM) 1 Patch TRANSDERMAL DAILY lidocaine patch - REMOVE OTHER AT BEDTIME lidocaine - VERIFY PATCH OTHER q 8 H gabapentin 300 mg cap(s) (NEURONTIN) 300 mg ORAL q 12 H cyclophosphamide (CYTOXAN) cap(s) 75 mg 75 mg ORAL DAILY polyethylene glycol 3350 17 g packet (MIRALAX, GLYCOLAX) 17 g ORAL/FEEDING TUBE DAILY docusate sodium 100 mg cap(s) (COLACE) 100 mg ORAL BID amLODIPine 10 mg tab(s) (NORVASC) 10 mg ORAL/FEEDING TUBE DAILY senna 8.6 mg tab(s) (SENOKOT) 8.6 mg ORAL/FEEDING TUBE BID pantoprazole DR 40 mg tab(s) (PROTONIX) 40 mg ORAL DAILY (6 AM) ondansetron 8 mg tab(s) (ZOFRAN) 8 mg ORAL q 8 H PRN diphenhydrAMINE 50 mg (BENADRYL) 50 mg ORAL/FEEDING TUBE q 6 H PRN sulfamethoxazole-trimethoprim 400-80 mg 2 tablet (BACTRIM,SEPTRA) 2 tablet ORAL/FEEDING TUBE -WE hydrocortisone sodium succinate (PF) 100 mg injection (Solu- CORTEF) 100 mg INTRAVENOUS q 4 H PRN diphenhydrAMINE 50 mg injection (BENADRYL) 50 mg INTRAVENOUS q 4 H PRN prochlorperazine 5 mg injection (COMPAZINE) 5 mg INTRAVENOUS q 6 H PRN 0.9% NaCl 2-10 mL 2-10 mL INTRAVENOUS PRN 0.9% NaCl 3-5 mL 3-5 mL INTRAVENOUS q 12 H dextrose 50% in water 25-50 mL syringe 12.5-25 g INTRAVENOUS PRN dextrose 40 % 15 g 15 g ORAL PRN glucagon 1 mg injection (GLUCAGEN) 1 mg SUBCUTANEOUS PRN acetaminophen 650 mg tab(s) (TYLENOL) 650 mg ORAL/FEEDING TUBE q 6 H PRN acetaminophen 650 mg suppository (TYLENOL) 650 mg RECTAL q 6 H PRN FLUID BALANCE: Intake/Output Summary (Last 24 hours) at 11/08/17 1143 Last data filed at 11/08/17 1000 Gross per 24 hour Intake 721.2 ml Output 1275 ml Net -553.8 ml DATA: LABS: CBC, Coags, BMP, Mg, Phos Recent Labs 11/08/17 0039 11/07/17 0430 11/06/17200211/06/17 0535 WBC 6.77 9.11 8.54 < > 8.49 HB 9.0* 9.4* 9.7* < > 9.3* HCT 27.0* 28.8* 29.4* < > 27.8* PLT 28* 33* 34* < > 41* NA 133* 133* -- -- 136 K 3.7 3.5* -- -- 3.5* CHLOR 94* 93* -- -- 95* CO2 24 25 -- -- 28 BUN 59* 57* -- -- 50* CREAT 1.19* 1.40* -- -- 1.10* GLUC 112* 142* -- -- 107* CA 8.7 8.9 -- -- 8.6 MG 2.1 1.6* -- -- 1.7 P 3.6 3.8 -- -- 3.3 < > = values in this interval not displayed. Liver Function, Amylase, AND Lipase ASSESSMENT AND PLAN: - Retroperitoneal hematoma ? ? Retroperitoneal bleed: s/p 7 units PRBCs s/p IR emobolization of left L3 artery at [facility] on 10/23 IR embolization of left L2 and L3 arteries on 10/26 CT abd/pel 10/31: RP bleed stable when compared to previous imaging from 10/27 LDH 1730, haptoglobin <10, Tbili 1.3- concern for hemolysis as well. Per heme, thrombocytopenia and anemia likely related to cytoxan with stressed BM Cytoxan reduced to 75 mg daily ? Plan: Continue to monitor HANDH and transfuse PRBC if Hb<7 or symptomatic Continue to hold Anticoagulation until approved by Vascular medicine- initially recommended holding AC for at least 14 days since last bleeding. (Hb stabilized around 11/01) ? - Anti-phospholipid antibody syndrome (HCC) ? ? 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 Has received stenting of IVC and iliacs along with endograft of IVC. 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 C/B extensive RP bleed s/p L2, L3 embolization. ? Plan: Continue Cytoxan 75 mg and prednisone 80 mg with bactrim ppx Appreciate hematology and VM recs Received Apheresis on 10/31 and 11/03 Hematology is following THORPE evaluation sent ? - CAPRICE (acute kidney injury) (HCC) ? ? CAPRICE on CKD III, 2/2 contrast, now requiring dialysis First HD at [facility] on 10/25 with tunneled dialysis catheter placement followed by [address] Abdomen/pelvis from 10/26 showed occlusion of B/L renal veins, outflow not appreciated- could be attributing to CAPRICE and CKD Bladder scan 10/29- UOP improving Creatinine trending up to 1.4 on 11/07/2017 Plan: Nephrology following- appreciate recommendations Daily BMPs to watch K, Na and phosphorus levels Renal dosing of medication Monitor off lasix given the uptrend in creatinine to 1.40 on 11/07/2017 Creatinine downtrended to 1.19 on 11/08/2017 ? - HTN (hypertension) ? ? Mildly decreased systolic function, diastolic function indeterminate on 10/13/17 ECHO. 10/28: Run of SBP in 200s overnight (likely d/t pain), given hydralazine however still consistently in 170s-180s 10/29: Still hypertensive, required 4 doses of hydralazine overnight Currently on Amlodipine 10 mg and Coreg 6.25 mg BID ? Plan: Continue Amlodipine and Coreg at current dosing, can up titrate coreg if tolerating well (HR currently 80-100) ? ? - Diffuse pulmonary alveolar hemorrhage ? ? Currently stable, no new episodes Has had 6 admissions recently for acute respiratory failure requiring mechanical ventilation Cytoxan was reduced from 150 to 75 mg due to concern for BM toxicity ? Plan: Continue to monitor respiratory status Continue oxygen therapy at 2L NC Continue Cytoxan 75 mg QD renally dosed Continue Prednisone 60 mg daily with Bactrim PPX ? - Moraxella catarrhalis pneumonia (HCC) ? ? Had respiratory cultures growing Moraxella catarrhalis Received ceftriaxone 10/27-11/03- 7 days therapy WBC trended down from 21 K to 12K. Currently at baseline O2 requirement but still slightly tachypneic Ceftriaxone discontinued after 7 days of treatment Plan: Continue to monitor respiratory status closely BPH per RT Incentive spirometry ? - Peripheral neuropathy - History of heparin-induced thrombocytopenia ? ? Avoid all heparin products. ? - Weakness of left leg ? ? 11/02 Left leg weakness/parasthesia Likely related to lumbar nerve compression from large retroperitoneal hematoma Neurology was following, recommended no further intervention On gabapentin renally dosed. ? - Right groin pain ? ? 10/27: C/o acute pain this morning, access site for embolization at [facility], no erythema or induration appreciated on exam, exquisitely TTP Groin study showed no signs of PSA, known AV fistula visualized with retrograde flow, vascular med aware- no further recs 10/28: pain less severe, no physical exam findings Repeat Leg DVT shows no pseudoaneurysm Likely due to nerve compression/RP hematoma causing compressive symtpoms S/p R groin bag placed at [facility] on 10/24 s/p L groin bag placed at [facility] during embolization on 10/26 Plan: - Pain management-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 WAITER/WAITRESS [employer]IN CLASS as of transfer to [facility] - Will continue to wean dilaudid as pt tolerates, currently kept her on Dilaudid 0.4 mg q3h PRN for pain ? ? SIGNATURE: Dayton Acuna MD, PGY2 PAGER: [phone] DATE of SERVICE: November 08, 2017 TIME of SERVICE: 11:43 AM This note is not final until signed by a Staff Physician DR. FRED STONE, SR. HOSPITAL STAFF PHYSICIAN NOTE OF PERSONAL INVOLVEMENT IN CARE I have reviewed the progress note obtained and documented by the resident and I personally participated in the fernandes components. I have discussed the case and management of the patient's care. The following comments revise or confirm relevant fernandes components of their note. IMPRESSION:?This is a 27 year old female catastrophic APS complicated by PE/DVT, DAH , HIT was on senior living coumadin, cytoxan , prednisone and pheresis. ?Recent admission for ?DAH. Discharged on fondaparinux?7.5mg daily? 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 requiring PAINT COATING MACHINE OPERATOR , volume overload thrombocytopenia, persistent ?anemia ? Feels well No new complains Darby negative Renal function improving Hgb stable Worsening thrombocytopenia, low suspicion of TMA, hemolysis may related to massive hematoma per hematology. However, will recheck peripheral blood smear and follow ADAMTS PLAN:?as delineated above Transfuse platelets today continue to hold anticoagulation due to worsening thrombocytopenia Edson Mohr MD November 08, 2017 1:46 PM MAGNESIUM Collected: 11/08/2017 Status: F Source: [place] 12:39 AM [facility] REPOSITORY TYPE CODE TESTS RESULT OUT OF REFERENCE UNITS RANGE LAB MG 1.7-2.3 mg/dL Magnesium 2.1 Performed By: #### MG1, PHOS, BMP, CBC, RETIC #### [facility] [address] [place], [place] [address] PHOSPHORUS Collected: 11/08/2017 Status: F Source: [place] 12:39 AM [facility] REPOSITORY TYPE CODE TESTS RESULT OUT OF REFERENCE UNITS RANGE LAB PHOS 2.7-4.8 mg/dL Phosphorus 3.6 Performed By: #### MG1, PHOS, BMP, CBC, RETIC #### [facility] [address] [place] [id number] BASIC METABOLIC PANL Collected: 11/08/2017 Status: F Source: [place] 12:39 AM [facility] REPOSITORY TYPE CODE TESTS RESULT OUT OF REFERENCE UNITS RANGE LAB GLU 74-99 mg/dL High Glucose 112 Result Comment: The [place] Diabetes Association (ADA) provides guidance for cutoff values for fasting glucose and random glucose. The ADA defines fasting as no caloric intake for at least 8 hours. Fas ting plasma glucose results between 100 to 125 mg/dL indicate increased risk for diabetes (prediabetes). Fasting plasma glucose results greater than or equal to 126 mg/dL meet the criteria for diagnosis of diabetes. In the absence of unequivocal hyperglycemia, results should be confirmed by repeat testing. In a patient with classic symptoms of hyperglycemia or hyperglycemic crisis, random plasma glucose results greater than or equal to 200 mg/dL meet the criteria for diagnosis of diabetes. Reference: Standards of Medical Care in Diabetes 2016, [place] [employer] Association. Diabetes Care. 2016.39(Suppl 1). LAB BUN 7-21 mg/dL BUN High 59 LAB CRET 0.58-0.96 mg/dL Creatinine High 1.19 LAB NA 136-144 mmol/L Low Sodium 133 LAB K 3.7-5.1 mmol/L Potassium 3.7 LAB CL 97-105 mmol/L Low Chloride 94 LAB CO2 22-30 mmol/L CO2 24 LAB AGAP 9-18 mmol/L Anion Gap 15 LAB CA 8.5-10.2 mg/dL Calcium, Total 8.7 LAB GFRAA eGFR- Amer. >60 LAB GFRNAA . eGFR-All Other Races 54 Result Comment: eGFR (Estimated GFR) Units of measure: mL/min/1.73 meters squared eGFR is derived from the reexpressed MDRD Study equation using the following parameters: serum creatinine, age, gender and race. The creatinine assay has been calibrated to be traceable to IDMS. An eGFR <60 mL/min/1.73m2 for >3 months is consistent with chronic kidney disease. Refer to KDOQI guidelines for clinical interpretation. In patients with unstable renal function, e.g. those with acute kidney injury, the eGFR may not accurately reflect actual GFR. Performed By: #### MG1, PHOS, BMP, CBC, RETIC #### [facility] [address], [place] [id number] CBC Collected: 11/08/2017 Status: F Source: [place] 12:39 AM [facility] REPOSITORY TYPE CODE TESTS RESULT OUT OF REFERENCE UNITS RANGE LAB WBC 3.70-11.00 k/uL WBC 6.77 LAB RBC 3.90-5.20 m/uL Low RBC 2.80 LAB HGB 11.5-15.5 g/dL Low Hemoglobin 9.0 LAB HCT 36.0-46.0 % Low Hematocrit 27.0 LAB MCV 80.0-100.0 fL MCV 96.4 LAB MCH 26.0-34.0 pG MCH 32.1 LAB MCHC 30.5-36.0 g/dL MCHC 33.3 LAB RDWCV 11.5-15.0 % RDW-CV High 25.2 LAB PLTCT 150-400 k/uL Low Platelet Count 28 Result Comment: Result checked and verified No clot detected. LAB MPV 9.0-12.7 fL MPV <<DO NOT REPORT>> LAB ABSNUC <0.01 k/uL 0.02 High Absolute nRBC LAB REVW Done Review LAB CBCCOM Few Comment Result Comment: RBC Fragments Performed By: #### MG1, PHOS, BMP, CBC, RETIC #### [facility] [address] [place], [place] [address] RETICULOCYTE Collected: 11/08/2017 Status: F Source: [place] 12:39 AM [facility] REPOSITORY TYPE CODE TESTS RESULT OUT OF RANGE REFERENCE UNITS LAB RETC 0.4-2.0 % High Retic% 9.3 Result Comment: Results verified by dilution. LAB ABRET 0.0180-0.1000 M/uL High Abs Retic 0.247 Result Comment: Results verified by dilution. Performed By: #### MG1, PHOS, BMP, CBC, RETIC #### [facility] [address] [place] [id number] EVALUATION Collected: 11/08/2017 Status: F Source: [place] 12:39 AM [facility] [place] REPOSITORY TYPE CODE TESTS RESULT OUT OF REFERENCE UNITS RANGE LAB AD13IH <0.5 [id number] 0.4 Inhibitor Result Comment: This test was developed and its performance characteristics determined by [facility] [place] ([facility]). It has not been cleared or approved by the FDA. [facility] is regulated under CLIA as qualified to perform high-complexity testing. This test is used for clinical purposes. It should not be regarded as investigational or for research. LAB AD13A >67 % Low TLYOQU67 Activity 56 Result Comment: This test was developed and its performance characteristics determined by [facility] [place] ([facility]). It has not been cleared or approved by the FDA. [facility] is regulated under CLIA as qualified to perform high-complexity testing. This test is used for clinical purposes. It should not be regarded as investigational or for research. LAB AD13AP MVHSAQ59 Act Interp (NOTE) Result Comment: Performing Pathologist: Lisseth Ashley M.D. Abnormal - see comment below. SIGNIFICANT FINDINGS: 1. 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 the BQJFJC14 activity level is mildly decreased. CRWMCE94 INHIBITOR SCREEN AND/OR INHIBITOR ASSAY: GBLZXP66 inhibitor assay was performed using mixing studies after 1:1 mixing of normal pooled plasma and the patient's plasma, and residual QYPJWN59 activity was measured using FRET technology. No CASYOW26 inhibitor is detected (< or = 0.4 Inhibitor Units). SUMMARY: Thrombotic thrombocytopenic purpura (TTP), idiopathic (autoimmune) type, is unlikely. If clinically indicated, consider ordering FMZOUA55 activity and/or inhibitor assay in a new specimen. If clinically indicated, antibody assay is suggested to rule out thrombotic thrombocytopenic purpura (TTP), idiopathic (autoimmune-related) type. Correlate with other clinical conditions associated with decreased KDAUZH90 activity such as hemolytic uremic syndrome, hematopoietic stem cell or solid organ transplantation, sepsis, DIC, HIV infection, inflammation, bloody diarrhea, liver disease, , malignancy, or certain drug effects (e.g.,clopidogrel, cyclosporin, mitomycin C, ticlopidine, etc), and congenital EEXDFQ68 deficiency (Skylar-Rafaela syndrome). Severe hemolysis (Hb 2 g/L), hyperbilirubinemia, hyperlipidemia and elevated von Willebrand factor antigen levels can interfere with MUJAFC89 activity assay. Recent transfusion or plasma exchange therapy can falsely normalize BMWLNO01 level, and mask the diagnosis of thrombotic thrombocytopenic purpura (TTP). Performed By: #### ADM13 #### [facility] [address] [address] NURSING PROG Observed: 11/07/2017 Status: COMPLETED Source: [place] 7:19 PM [facility] REPOSITORY HNO ID: [id number] Author: Grace Deal (Rn), RN Service: (none) Author Type: Registered Nurse Type: Nursing Progress Note Filed: 11/18/2017 7:19 AM Note Text: Nursing Progress Note Patient Name: Paloma Cannon Patient Location: [facility] [id number] Daily Note:Patient medicated for pain, numerous times this shift. Effective temporarily. [place] A team made aware during bedside rounds. Patient educated regarding PRN medications. This note was completed by: Grace Deal RN ALLIED [facility] Observed: 11/07/2017 Status: COMPLETED Source: [place] 5:26 PM [facility] REPOSITORY HNO ID: [id number] Author: Negrito Kelley (Therapist) Miranda Service: Art Therapy Author Type: Therapist Type: Allied Health Filed: 11/07/2017 5:28 PM Note Text: ART THERAPY NOTE SERVICE DATE: 11/07/2017 SERVICE TIME: 4:00 Referred By: PT Reason for Referral: anxiety COMMENTS: Consult was received and appreciated. Pt asleep upon attempt. Did not disturb. Will follow up as able. SIGNATURE: Negrito Jean, [facility] PATIENT NAME: Paloma Cannon DATE: November 07, 2017 TIME: 5:26 PM PAGER/CONTACT #: [phone] ALLIED HEALTH Observed: 11/07/2017 Status: COMPLETED Source: [place] 2:55 PM [facility] REPOSITORY HNO ID: [id number] Author: Kayla Stewart (Therapist) GINA Levin Service: Music Therapy Author Type: Music Therapist Type: Allied Health Filed: 11/08/2017 9:18 AM Note Text: MUSIC THERAPY NOTE SERVICE DATE: 11/07/2017 Pt presented with neutral affect upon MT's arrival and was sitting up in the chair. MT introduced music therapy services to pt, to which pt expressed having received music therapy during previous admission and expressed interest in participating this admission. Pt requested MT return another day due to feeling fatigued and hoping to soon sleep. MT will follow up as able. SIGNATURE: Kayla Levin [facility] PATIENT NAME: Paloma Cannon DATE: November 08, 2017 TIME: 9:16 AM PAGER/CONTACT #: [phone] HISTORY PHYSICAL Observed: 11/07/2017 Status: COMPLETED Source: [place] 12:18 PM [facility] REPOSITORY HNO ID: [id number] Author: Indra Hoyt Service: Physical Therapy Author Type: Ancillary Specialist Type: HANDP Filed: 11/07/2017 12:27 PM Note Text: Attestation signed by Mandy SanchezPtDevonte Wakefield at 11/07/2017 12:29 PM I reviewed and agree with the documentation corresponding to this therapy visit. SIGNATURE: Mandy Wakefield, DPGiacomo DATE: November 07, 2017 TIME: 12:29 PM Physical Therapy Treatment SERVICE DATE: 11/07/2017 SERVICE TIME: 1133 to 1211 ROOM: [place] [address] Recommended Discharge Disposition: Acute Rehab Justification For Post Acute Needs: Anticipate that patient will require daily (5x/wk) skilled therapy in a post-acute facility setting at the time of acute hospital discharge;Willing to participate;Motivated;Anticipate patient will tolerate 3 hours of daily therapy at the time of admission to post-acute setting;Good family support Anticipated Discharge Needs: Undetermined PT Recommendations to Nursing: With assist of 1 person;Transfer to/from chair;OOB for Meals PT 6 Clicks Score: 13 Precautions/Activity Restrictions: Fall Risk;Lines/Tubes/Drains ASSESSMENT : Patient presents progressing with functional mobility. Patient able to transfer to chair with walker and ambulate short distance with assist of 2 with cues for trunk alignment, foot placement, walker management, balance and forward gaze. Patient Disposition at Start of Session: Supine in Bed Patient Disposition at End of Session: OOB in Chair;Call Wagoner in [place] (nursing aware) Tolerated Full Session Physical Therapy Problem List: Cognitive Deficit;Education Deficit;Decreased Activity Tolerance;Decreased Strength;Functional Mobility Impairment Patient /Caregiver Goals: Go Home Goals for Plan of Care: Rolling with: Independent Transfer supine to/from sit with: Independent Transfer sit to/from stand with: Contact Guard Assistance Ambulate with: Contact Guard Assistance Distance: 10 Device: Wheeled Walker Progress Toward Goals: Progressing as expected Rehab Potential: Good PLAN: Treatment Frequency (times per week): 2 Treatment Duration (number): 2 Weeks Treatment Interventions: Education;Energy Conservation Training;Strengthening;Functional Mobility Training;Balance Training Plan of Care developed with: Patient TREATMENT INTERVENTIONS: Therapy Diagnosis: Reduced mobility-other Interventions Provided: Gait Training (66040);Therapeutic Exercise (59579);Therapeutic Activity (74661) Therapeutic Exercise (61055) Treatment Minutes: 15 1 unit Skilled Intervention(s): Patient instructed in and performed supine exercises for 20 rep: AP, heelslides, SAQ, hip abduction; seated: 20 reps LAQ with minimal verbal and tactile cues for pacing and proper technique. Heel cord stretching to left calf with cues on how to use sheet to perform stretching in bed. Educated patient on positioning with pillow for neutral ankle position Educated patient in reasoning for each exercise. Therapeutic Activity (13921) Treatment Minutes: 8 1 unit Skilled Intervention(s): Instructed patient in log roll technique Instructed patient in supine to sit pushing with upper extremities to sit up Education with importance of OOB activities Patient sat EOB for 5 mins for core strengthening with CGA/SBA Gait Training (63138) Treatment Minutes: 15 1 unit Skilled Intervention(s): Instruction in sit to stand technique with proper hand placement and body positioning at edge of bed/chair - from elevated bed, increased assist from lower surface ( recliner), Instruction in stand to sit technique with LE's touching chair/bed and reaching back for surface, Instruction in correction of gait deviations, Instruction in use of equipment, cues for sequence and pattern and walker management. Total Timed Code Treatment Minutes: 38 Total Treatment Time (minutes): 38 FUNCTIONAL G CODE: PT 6 Clicks Score: 13 (11/07/17 1133) Mobility: Walking and Moving Around Current Status (G8978): CL (11/02/17 1015) Mobility: Walking and Moving Around Goal Status (G8979): CK (11/02/17 1015) Based on clinical assessment and the score on the 6 Clicks Functional Assessment Tool, the G code and corresponding severity modifiers are documented above. SUBJECTIVE: Current Hospital Course: Chart reviewed and no significant medical updates relevant to therapy were noted Patient Report: Patient happy to get up to chair. 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 Entry To Home: No Stairs Number Of Stairs To Bed/Bath: 0 Tub/Shower Type: walk in shower Equipment Owned: Commode-Raised;Grab Bars-Shower;Grab Bars-Toilet;Shower Chair;Home Oxygen Prior Functional Level: Required Assistance Assistance Required With: Cleaning;Laundry;Meals;Shopping;Transportation Prior Wound Care: Other: See Comment (unable to don compression stockings (I)) OBJECTIVE: CURRENT FUNCTIONAL STATUS: Current Functional Mobility Assist Level Additional Information Rolling Contact Guard Assistance Supine to Sit Contact Guard Assistance Sit to Supine (up in chair) Scooting Minimal Assistance Sit to Stand Moderate Assistance ( x 2) Stand to Sit Moderate Assistance (x 2) Bed to Chair Moderate Assistance (x 2) Toilet/Commode Gait Moderate Assistance (and CGA of 1 for safety) Gait Device: Wheeled Walker (with WC follow) Gait Distance (feet): 4', 8' Stairs Curb Step Car Transfer General Gait Deviations: Delmy decreased;Wide base of support;Flexed trunk posture;Step length decreased;Lateral sway increased Balance: Static Sitting;Dynamic Sitting;Static Standing;Dynamic Standing Static Sitting Balance: Stand By Assistance Dynamic Sitting Balance: Contact Guard Assistance Static Standing Balance: Moderate Assistance ( x 2) Dynamic Standing Balance: Moderate Assistance (x 2) Please see discipline specific clinical documentation flowsheet for complete details for this therapy evaluation/treatment. SIGNATURE: Indra Woods PTA PATIENT NAME: Paloma Cannon DATE: November 07, 2017 TIME: 12:18 PM PAGER/CONTACT #: [phone] CONSULT PROG Observed: 11/07/2017 Status: COMPLETED Source: [place] 10:13 AM [facility] REPOSITORY HNO ID: [id number] Author: Luz Maria Wolfe Service: Hematology Author Type: Physician Type: Consult Progress Note Filed: 11/07/2017 7:56 PM Note Text: CONSULT PROGRESS NOTE SERVICE DATE: 11/07/2017 CONSULTING SERVICE: Hematology Subjective INTERVAL HPI: No acute events overnight elevated LD, elevated retic, and an undetectable hapto Current hospital medications: magnesium sulfate in water 2 g in sterile water 50 ml 2 g INTRAVENOUS ONCE carvedilol 12.5 mg tab(s) (COREG) 12.5 mg ORAL/FEEDING TUBE BID w MEALS oxyCODONE IR 5-10 mg tab(s) (ROXICODONE) 5-10 mg ORAL/FEEDING TUBE q 4 H PRN predniSONE (DELTASONE) tab(s) 60 mg 60 mg ORAL/FEEDING TUBE DAILY HYDROmorphone 0.4 mg injection (DILAUDID) 0.4 mg INTRAVENOUS q 3 H PRN calcium gluconate 3 g in NaCl 0.9% 1,000 mL 3 g INTRAVENOUS APHERESIS albumin (5%) 50 g infusion 1,000 mL INTRAVENOUS APHERESIS sodium citrate 4% 3-6 mL catheter lock 3-6 mL INTRALUMINAL APHERESIS PRN lidocaine 5 % 1 Patch (LIDODERM) 1 Patch TRANSDERMAL DAILY lidocaine patch - REMOVE OTHER AT BEDTIME lidocaine - VERIFY PATCH OTHER q 8 H gabapentin 300 mg cap(s) (NEURONTIN) 300 mg ORAL q 12 H cyclophosphamide (CYTOXAN) cap(s) 75 mg 75 mg ORAL DAILY polyethylene glycol 3350 17 g packet (MIRALAX, GLYCOLAX) 17 g ORAL/FEEDING TUBE DAILY docusate sodium 100 mg cap(s) (COLACE) 100 mg ORAL BID amLODIPine 10 mg tab(s) (NORVASC) 10 mg ORAL/FEEDING TUBE DAILY senna 8.6 mg tab(s) (SENOKOT) 8.6 mg ORAL/FEEDING TUBE BID pantoprazole DR 40 mg tab(s) (PROTONIX) 40 mg ORAL DAILY (6 AM) ondansetron 8 mg tab(s) (ZOFRAN) 8 mg ORAL q 8 H PRN diphenhydrAMINE 50 mg (BENADRYL) 50 mg ORAL/FEEDING TUBE q 6 H PRN sulfamethoxazole-trimethoprim 400-80 mg 2 tablet (BACTRIM,SEPTRA) 2 tablet ORAL/FEEDING TUBE - hydrocortisone sodium succinate (PF) 100 mg injection (Solu- CORTEF) 100 mg INTRAVENOUS q 4 H PRN diphenhydrAMINE 50 mg injection (BENADRYL) 50 mg INTRAVENOUS q 4 H PRN prochlorperazine 5 mg injection (COMPAZINE) 5 mg INTRAVENOUS q 6 H PRN 0.9% NaCl 2-10 mL 2-10 mL INTRAVENOUS PRN 0.9% NaCl 3-5 mL 3-5 mL INTRAVENOUS q 12 H dextrose 50% in water 25-50 mL syringe 12.5-25 g INTRAVENOUS PRN dextrose 40 % 15 g 15 g ORAL PRN glucagon 1 mg injection (GLUCAGEN) 1 mg SUBCUTANEOUS PRN acetaminophen 650 mg tab(s) (TYLENOL) 650 mg ORAL/FEEDING TUBE q 6 H PRN acetaminophen 650 mg suppository (TYLENOL) 650 mg RECTAL q 6 H PRN Objective PHYSICAL EXAM: BP 167/82 Pulse 104 Temp (Src) 98.4 (Oral) Resp 20 Ht 5' 3 (1.60m) Wt 221 lb 12.5 oz (100.6kg) SpO2 93% BMI 39.30 kg/(m2). General: Alert, NAD Heart/CV: ?Grossly RRR Lungs: CTA Abd: ?Soft, NT,ND Extremities/Skin: No rashes appreciated DATA: Component Latest Ref Rng AND Units 11/06/2017 WBC 3.70 - 11.00 k/uL 8.54 RBC 3.90 - 5.20 m/uL 3.03 (L) Hemoglobin 11.5 - 15.5 g/dL 9.7 (L) Hematocrit 36.0 - 46.0 % 29.4 (L) MCV 80.0 - 100.0 fL 97.0 MCH 26.0 - 34.0 pG 32.0 MCHC 30.5 - 36.0 g/dL 33.0 RDW-CV 11.5 - 15.0 % 25.6 (H) Platelet Count 150 - 400 k/uL 34 (L) MPV 9.0 - 12.7 fL <<DO NOT REPORT>> Absolute nRBC <0.01 k/uL <0.01 Component Latest Ref Rng AND Units 11/06/2017 11/07/2017 Retic % 0.4 - 2.0 % 11.0 (H) Abs Retic 0.0180 - 0.1000 M/uL 0.328 (H) Haptoglobin 31 - 238 mg/dL <10 (L) LD 135 - 214 U/L 1,285 (H) Impression/Recommendations ASSESSMENT/PLAN:? 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 Recent admission 10/13/17-10/23/17 for hemoptysis and SOB, requiring intubation, was in MICU for management of DAH. readmitted to MICU again for ?extensive left retroperitoneal hemorrhage?s/p IR guided intervention (initially on 10/23 at [facility] and 10/26 here at [facility]. ? # Antiphospholipid antibody syndrome -Current therapy : Prednisone 60 mg ( home dose 5 mg), Cytoxan *5 mg ( home dose 150 mg), pheresis on 10/09* -continue with current dose of steroids and cytoxan -AC is on hold due to recent bleeding -Protein C activity, Protein S function and Immuno are pending in consideration for warfarin in the near future. #Extensive left retroperitoneal hemorrhage -likely secondary to anticoagulant. Its an unfortunate case, she needs an anticoagulation for APS but bleeding episodes prohibits -sp IR intevention on 10/23 and 10/26 Last transfusion on 11/03- 2U of PRBC and 2 U of platelets - Please transfuse Platelets to keep Plt >30 K. Please check post transfusion CBC 1 hour after transfusion. #Hemolysis -On going with elevated LD, elevated retic, and an undetectable hapto. Hemoglobin has been stable. BPS reviewed again today and consistent with TMA - Direct [place] is ordered, but not sent. 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 I am in agreement with the plan as stated above. I discussed the above plan with the patient and I have answered questions asked by the patient. Pt feeling well today and is looking well. Up in chair. No new complaints. Her Hb and platelets are overall stable and she has not received blood or platelets since 11/03. Her smear today had more schistocytes compared to smear on 11/04- but this was an old specimen so some abnormalities might be artifact. Her renal function is stable. Clinically low concern for TTP. Low hapto and high LDH might be 2/2 resolving hematoma. Elevated retic is expected with her blood loss. So, it is hard to say how much of her abnormalities are related to TMA-will get fresh peripheral smear tomorrow. Regarding AC would consider low dose bival drip with up titration as tolerated as soon as 14 day from stable Hb- will need to carefully monitor platelet count at time we restart AC. Overall plan is to transition to coumadin once able. Will continue to see her daily. Luz Maria Wolfe MD November 07, 2017 7:54 PM CASE MANAGEM Observed: 11/07/2017 Status: COMPLETED Source: [place] 9:26 AM [facility] REPOSITORY HNO ID: [id number] Author: Yeni Esqueda (Sw) Service: (none) Author Type: Toolmaker Helper Type: Care Mgt Progress Note Filed: 11/08/2017 2:26 PM Note Text: CARE MANAGEMENT PROGRESS NOTE SERVICE DATE: 11/07/2017 SERVICE TIME: 12:30 LOS: 13 days Reason for Admission: Retroperitoneal bleed [R58] Reason for Social Work Contact: Psychosocial Assessment Time Spent (minutes): 30 Information Obtained From: Patient Patient Granted Permission to Speak to Others in the Room: No one in the room during time of assessment. Pt gave sw permission to speak to if necessary. SOCIAL HISTORY Marital Status: . Relationship described as good Children (Including Quality of Relationship): Pt stated she is not able to have children due to medical issues. and Patient Does Not Have Children Sexual Orientation: Heterosexual Gender Identity: Female Abuse History: No, Patient/Cyanide Case Hardener Denies Education History: Associate Degree and [employer] Support System: Family: Status (Including History of Combat Experience): None Legal History:Patient/Cyanide Case Hardener Denies Oriental Orthodox/Spirituality: Wiccan Do Special Considerations/Accommodations Need to be Made? No Are There Practices or Beliefs That May Affect or Influence Care? No, Patient/Cyanide Case Hardener Denies Patient Strengths/Protective Factors: Able to Communicate Needs Educational Background Future-Oriented Supportive Friends/Family PSYCHIATRIC HISTORY: Pt states that she may possibly have some depresson due to her medical issues Family Psychiatric History No Known Psychiatric Illness Homicide/Suicide Risk None Substance Use and Treatment History: Patient/Cyanide Case Hardener Denies Offered Patient Resources: No DISCHARGE RECOMMENDATIONS: Medical Follow-Up and Jail Facility Patient/Cyanide Case Hardener Agreeable With Discharge Recommendations At This Time? Yes OBSTACLES TO TREATMENT/POST-DISCHARGECHALLENGES: Comorbid Medical Diagnoses Sw met with this pt at bedside. Pt is a 27 year old white female. During this admission pt was admitted for Retroperitoneal hematoma. Per chart pt is on anticoagulation for lifetime. Pt receives plasmapheresis q2 weekly. Pt has frequent hospital admissions. Pt is supportive. Pt gave sw permission to speak with her if needed. Pt reports that her family is also very supportive. Per chart pt was recently discharged from [facility] (10/22) after her 6th episode of respiratory failure requiring mechanical ventilation, was discharged on 2L NC oxygen. Discharge plan for this admission is for pt to d/c to Acute Rehab. Pt did not report or express any significant psychosocial issues at this time. If needs arise please page Sw. SIGNATURE: JUAN PABLO Vogt PATIENT NAME: Paloma Cannon DATE: November 07, 2017 TIME: 9:26 AM PAGER/CONTACT #: [phone] PROGRESS Observed: 11/07/2017 Status: COMPLETED Source: [place] 6:03 AM [facility] REPOSITORY HNO ID: [id number] Author: Edson Mohr Service: General Internal Medicine Author Type: Physician Type: Progress Notes Filed: 11/07/2017 2:28 PM Note Text: DEPARTMENT OF INTERNAL MEDICINE: PROGRESS NOTE PRIMARY TEAM: RAF Terry 7 am to 5 pm/Weekend 7 am to 3 pm: Page [phone] (Dayton Acuna) 5 pm to 7 am/Weekend 3 pm to 7 am: Assembler Movement Pager [phone] PATIENT NAME: Paloma Cannon BRIEF PLAN FOR TODAY: - Increase carvedilol as tolerated - F/up AM CBC - Continue Cytoxan and Prednisone - Continue bactrim prophylaxis - Continue current pain regimen for now - Will touch base with Hematology regarding possibility of TTP/HUS or other etiologies for thrombocytopenia - Mobilize patient and PT/OT - Holding IV lasix today given uptrend in creatinine along with IUF removal of 3L in addition to 1L UOP with poor PO inake - Strict I/O -Consider as needed lasix boluses based on examination INTERVAL HPI: No acute events overnight. Underwent IUF on 11/06/2017 with removal of 3L and UOP of 1L with 100 mg Lasix BID. Continues to have left groin and flank pain which is being managed with the current pain regimen Labs: Hgb: 9.3-->9.5-->9.7 Creatinine: 1.10-->1.40 Plt: 40-->34 PHYSICAL EXAM: BP 167/82 Pulse 104 Temp 36.9 ?C (98.4 ?F) (Oral) Resp 20 Ht 160 cm (5' 3) Wt 100.6 kg (221 lb 12.5 oz) SpO2 93% BMI 39.29 kg/m? General: Alert and oriented, no apparent distress Heart: Regular rate and rhythm, s1s2, no murmurs rubs or gallops Lungs: Clear to auscultation bilaterally Abdomen: Positive bowel sounds, soft, nontender, nondistended Extremities: Bilateral lower extremity edema present Neuro: Moving all extremities freely. Decreased sensation along with the left lateral aspect of the leg MEDICATIONS: Current hospital medications: magnesium sulfate in water 2 g in sterile water 50 ml 2 g INTRAVENOUS ONCE carvedilol 12.5 mg tab(s) (COREG) 12.5 mg ORAL/FEEDING TUBE BID w MEALS oxyCODONE IR 5-10 mg tab(s) (ROXICODONE) 5-10 mg ORAL/FEEDING TUBE q 4 H PRN predniSONE (DELTASONE) tab(s) 60 mg 60 mg ORAL/FEEDING TUBE DAILY HYDROmorphone 0.4 mg injection (DILAUDID) 0.4 mg INTRAVENOUS q 3 H PRN calcium gluconate 3 g in NaCl 0.9% 1,000 mL 3 g INTRAVENOUS APHERESIS albumin (5%) 50 g infusion 1,000 mL INTRAVENOUS APHERESIS sodium citrate 4% 3-6 mL catheter lock 3-6 mL INTRALUMINAL APHERESIS PRN lidocaine 5 % 1 Patch (LIDODERM) 1 Patch TRANSDERMAL DAILY lidocaine patch - REMOVE OTHER AT BEDTIME lidocaine - VERIFY PATCH OTHER q 8 H gabapentin 300 mg cap(s) (NEURONTIN) 300 mg ORAL q 12 H cyclophosphamide (CYTOXAN) cap(s) 75 mg 75 mg ORAL DAILY polyethylene glycol 3350 17 g packet (MIRALAX, GLYCOLAX) 17 g ORAL/FEEDING TUBE DAILY docusate sodium 100 mg cap(s) (COLACE) 100 mg ORAL BID amLODIPine 10 mg tab(s) (NORVASC) 10 mg ORAL/FEEDING TUBE DAILY senna 8.6 mg tab(s) (SENOKOT) 8.6 mg ORAL/FEEDING TUBE BID pantoprazole DR 40 mg tab(s) (PROTONIX) 40 mg ORAL DAILY (6 AM) ondansetron 8 mg tab(s) (ZOFRAN) 8 mg ORAL q 8 H PRN diphenhydrAMINE 50 mg (BENADRYL) 50 mg ORAL/FEEDING TUBE q 6 H PRN sulfamethoxazole-trimethoprim 400-80 mg 2 tablet (BACTRIM,SEPTRA) 2 tablet ORAL/FEEDING TUBE hydrocortisone sodium succinate (PF) 100 mg injection (Solu- CORTEF) 100 mg INTRAVENOUS q 4 H PRN diphenhydrAMINE 50 mg injection (BENADRYL) 50 mg INTRAVENOUS q 4 H PRN prochlorperazine 5 mg injection (COMPAZINE) 5 mg INTRAVENOUS q 6 H PRN 0.9% NaCl 2-10 mL 2-10 mL INTRAVENOUS PRN 0.9% NaCl 3-5 mL 3-5 mL INTRAVENOUS q 12 H dextrose 50% in water 25-50 mL syringe 12.5-25 g INTRAVENOUS PRN dextrose 40 % 15 g 15 g ORAL PRN glucagon 1 mg injection (GLUCAGEN) 1 mg SUBCUTANEOUS PRN acetaminophen 650 mg tab(s) (TYLENOL) 650 mg ORAL/FEEDING TUBE q 6 H PRN acetaminophen 650 mg suppository (TYLENOL) 650 mg RECTAL q 6 H PRN FLUID BALANCE: Intake/Output Summary (Last 24 hours) at 11/07/17 1103 Last data filed at 11/07/17 0900 Gross per 24 hour Intake 488.8 ml Output 4250 ml Net -3761.2 ml DATA: LABS: CBC, Coags, BMP, Mg, Phos Recent Labs 11/07/17 0430 11/06/17200211/06/17 1012 11/06/17 0535 11/05/17 1908 11/05/17 0522 WBC -- 8.54 8.42 8.49 < > 8.11 8.54 HB -- 9.7* 9.5* 9.3* < > 8.8* 8.8* HCT -- 29.4* 28.5* 27.8* < > 27.1* 26.8* PLT -- 34* 40* 41* < > 40* 23* NA 133* -- -- 136 -- 134* 135* K 3.5* -- -- 3.5* -- 3.3* 3.0* CHLOR 93* -- -- 95* -- 92* 96* CO2 25 -- -- 28 -- 21* 24 BUN 57* -- -- 50* -- 45* 48* CREAT 1.40* -- -- 1.10* -- 1.14* 1.19* GLUC 142* -- -- 107* -- 195* 100* CA 8.9 -- -- 8.6 -- 8.4* 8.4* MG 1.6* -- -- 1.7 -- -- 1.7 P 3.8 -- -- 3.3 -- -- 3.4 < > = values in this interval not displayed. Liver Function, Amylase, AND Lipase Cardiac Enzymes ASSESSMENT AND PLAN: Active Hospital Problems ? Diagnosis - Retroperitoneal hematoma ? ? Retroperitoneal bleed: s/p 7 units PRBCs s/p IR emobolization of left L3 artery at [facility] on 10/23 IR embolization of left L2 and L3 arteries on 10/26 CT abd/pel 10/31: RP bleed stable when compared to previous imaging from 10/27 LDH 1730, haptoglobin <10, Tbili 1.3- concern for hemolysis as well. Per heme, thrombocytopenia and anemia likely related to cytoxan with stressed BM Cytoxan reduced to 75 mg daily ? Plan: Continue to monitor HANDH and transfuse PRBC if Hb<7 or symptomatic Continue to hold Anticoagulation until approved by Vascular medicine- initially recommended holding AC for at least 14 days since last bleeding. (Hb stabilized around 11/01) undergoing IUF per nephrology ? - Anti-phospholipid antibody syndrome (HCC) ? ? 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 Has received stenting of IVC and iliacs along with endograft of IVC. 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 C/B extensive RP bleed s/p L2, L3 embolization. ? Plan: Continue Cytoxan 75 mg and prednisone 80 mg with bactrim ppx Appreciate hematology and VM recs Received Apheresis on 10/31 and 11/03 Hematology is following ? - CAPRICE (acute kidney injury) (HCC) ? ? CAPRICE on CKD III, 2/2 contrast, now requiring dialysis First HD at [facility] on 10/25 with tunneled dialysis catheter placement followed by [address] Abdomen/pelvis from 10/26 showed occlusion of B/L renal veins, outflow not appreciated- could be attributing to CAPRICE and CKD Bladder scan 10/29- UOP improving Creatinine trending up to 1.4 on 11/07/2017 Plan: Nephrology following- appreciate recommendations Daily BMPs to watch K, Na and phosphorus levels Renal dosing of medication Monitor off lasix given the uptrend in creatinine to 1.40 on 11/07/2017 ? - HTN (hypertension) ? ? Mildly decreased systolic function, diastolic function indeterminate on 10/13/17 ECHO. 10/28: Run of SBP in 200s overnight (likely d/t pain), given hydralazine however still consistently in 170s-180s 10/29: Still hypertensive, required 4 doses of hydralazine overnight Currently on Amlodipine 10 mg and Coreg 6.25 mg BID ? Plan: Continue Amlodipine and Coreg at current dosing, can up titrate coreg if tolerating well (HR currently 80-100) ? ? - Diffuse pulmonary alveolar hemorrhage ? ? Currently stable, no new episodes Has had 6 admissions recently for acute respiratory failure requiring mechanical ventilation Cytoxan was reduced from 150 to 75 mg due to concern for BM toxicity ? Plan: Continue to monitor respiratory status Continue oxygen therapy at 2L NC Continue Cytoxan 75 mg QD renally dosed Continue Prednisone 60 mg daily with Bactrim PPX ? - Moraxella catarrhalis pneumonia (HCC) ? ? Had respiratory cultures growing Moraxella catarrhalis Received ceftriaxone 10/27-11/03- 7 days therapy WBC trended down from 21 K to 12K. Currently at baseline O2 requirement but still slightly tachypneic Ceftriaxone discontinued after 7 days of treatment Plan: Continue to monitor respiratory status closely BPH per RT ? - Peripheral neuropathy - History of heparin-induced thrombocytopenia ? ? Avoid all heparin products. ? - Weakness of left leg ? ? 11/02 Left leg weakness/parasthesia Likely related to lumbar nerve compression from large retroperitoneal hematoma Neurology was following, recommended no further intervention On gabapentin renally dosed. ? - Right groin pain ? ? 10/27: C/o acute pain this morning, access site for embolization at [facility], no erythema or induration appreciated on exam, exquisitely TTP Groin study showed no signs of PSA, known AV fistula visualized with retrograde flow, vascular med aware- no further recs 10/28: pain less severe, no physical exam findings Repeat Leg DVT shows no pseudoaneurysm Likely due to nerve compression/RP hematoma causing compressive symtpoms S/p R groin bag placed at [facility] on 10/24 s/p L groin bag placed at [facility] during embolization on 10/26 Plan: - Pain management-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 WAITER/WAITRESS CABIN CLASS as of transfer to [facility] - Will continue to wean dilaudid as pt tolerates, currently kept her on Dilaudid 0.4 mg q3h PRN for pain SIGNATURE: Dayton Acuna MD, PGY2 PAGER: [phone] DATE of SERVICE: November 07, 2017 TIME of SERVICE: 6:03 AM This note is not final until signed by a Staff Physician DR. FRED STONE, SR. HOSPITAL STAFF PHYSICIAN NOTE OF PERSONAL INVOLVEMENT IN CARE ? I have reviewed the progress note obtained and documented by the resident and I personally participated in the fernandes components. I have discussed the case and management of the patient's care. The following comments revise or confirm relevant fernandes components of their note. ? ? IMPRESSION: This is a 27 year old female catastrophic APS complicated by PE/DVT, DAH , HIT was on senior living coumadin, cytoxan , prednisone and pheresis. Recent admission for DAH. 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 L sided pain better controlled on regular doses of hydromorphone Afebrile Menatating well Worsening thrombocytopenia, ongoing hemolysis Per hematology theres is evidence of MAHA on peripheral blood smear Slightly worse renal function PLAN: as delineated above Follow repeat Darby Discusss with hematology if there's concern for TMA Edson Mohr MD November 07, 2017 2:28 PM NURSING PROG Observed: 11/07/2017 Status: COMPLETED Source: [place] 5:18 AM [facility] REPOSITORY HNO ID: [id number] Author: Galdino (Rn) JEFF Adams Service: Nursing Author Type: Registered Nurse Type: Nursing Progress Note Filed: 11/07/2017 5:20 AM Note Text: Nursing Progress Note Patient Name: Paloma Cannon Patient Location: [place] [id number]- Daily Note: Pt AANDOx3, continuing to refuse Q2 hr turns. Educated pt on the importance of turning and pt verbally understands. Pt able to turn self with assistance. Pt pain well controlled with dilaudid per MAR. This note was completed by: Galdino Adams RN MAGNESIUM Collected: 11/07/2017 Status: F Source: [place] 4:30 AM [facility] REPOSITORY TYPE CODE TESTS RESULT OUT OF REFERENCE UNITS RANGE LAB MG 1.7-2.3 mg/dL Low Magnesium 1.6 Performed By: #### MG1, PHOS, BMP, RETIC, PRCFUN, PROTSI, PRSCLT #### [facility] [address], [place] [address] PHOSPHORUS Collected: 11/07/2017 Status: F Source: [place] 4:30 AM [facility] REPOSITORY TYPE CODE TESTS RESULT OUT OF REFERENCE UNITS RANGE LAB PHOS 2.7-4.8 mg/dL Phosphorus 3.8 Performed By: #### MG1, PHOS, BMP, RETIC, PRCFUN, PROTSI, PRSCLT #### [facility] [address] [place], [place] [address] BASIC METABOLIC PANL Collected: 11/07/2017 Status: F Source: [place] 4:30 AM [facility] REPOSITORY TYPE CODE TESTS RESULT OUT OF REFERENCE UNITS RANGE LAB GLU 74-99 mg/dL High Glucose 142 Result Comment: The [place] [employer] (ADA) provides guidance for cutoff values for fasting glucose and random glucose. The ADA defines fasting as no caloric intake for at least 8 hours. Fas ting plasma glucose results between 100 to 125 mg/dL indicate increased risk for diabetes (prediabetes). Fasting plasma glucose results greater than or equal to 126 mg/dL meet the criteria for diagnosis of diabetes. In the absence of unequivocal hyperglycemia, results should be confirmed by repeat testing. In a patient with classic symptoms of hyperglycemia or hyperglycemic crisis, random plasma glucose results greater than or equal to 200 mg/dL meet the criteria for diagnosis of diabetes. Reference: Standards of Medical Care in Diabetes 2016, [place] [employer]. Diabetes Care. 2016.39(Suppl 1). LAB BUN 7-21 mg/dL BUN High 57 LAB CRET 0.58-0.96 mg/dL Creatinine High 1.40 LAB NA 136-144 mmol/L Low Sodium 133 LAB K 3.7-5.1 mmol/L Low Potassium 3.5 LAB CL 97-105 mmol/L Low Chloride 93 LAB CO2 22-30 mmol/L CO2 25 LAB AGAP 9-18 mmol/L Anion Gap 15 LAB CA 8.5-10.2 mg/dL Calcium, Total 8.9 LAB GFRAA eGFR- Amer. 54 LAB GFRNAA . eGFR-All Other Races 45 Result Comment: eGFR (Estimated GFR) Units of measure: mL/min/1.73 meters squared eGFR is derived from the reexpressed MDRD Study equation using the following parameters: serum creatinine, age, gender and race. The creatinine assay has been calibrated to be traceable to IDMS. An eGFR <60 mL/min/1.73m2 for >3 months is consistent with chronic kidney disease. Refer to KDOQI guidelines for clinical interpretation. In patients with unstable renal function, e.g. those with acute kidney injury, the eGFR may not accurately reflect actual GFR. Performed By: #### MG1, PHOS, BMP, RETIC, PRCFUN, PROTSI, PRSCLT #### [facility] [address] [id number] RETICULOCYTE Collected: 11/07/2017 Status: F Source: [place] 4:30 AM [facility] REPOSITORY TYPE CODE TESTS RESULT OUT OF RANGE REFERENCE UNITS LAB RETC 0.4-2.0 % High Retic% 11.0 Result Comment: Results verified by dilution. LAB ABRET 0.0180-0.1000 M/uL High Abs Retic 0.328 Result Comment: Results verified by dilution. Performed By: #### MG1, PHOS, BMP, RETIC, PRCFUN, PROTSI, PRSCLT #### [facility] [address] [address] PROTEIN C FUNCTIONAL Collected: 11/07/2017 Status: F Source: [place] 4:30 [facility] REPOSITORY TYPE CODE TESTS RESULT OUT OF REFERENCE UNITS RANGE LAB PRCFUN 76-147 % Protein High C Functional 167 Result Comment: The protein C level is elevated. This may be seen with an acute phase response, but is of doubtful clinical significance. Performed By: #### MG1, PHOS, BMP, RETIC, PRCFUN, PROTSI, PRSCLT #### [facility] [address] [place], [place] [address] PROT S IMMUNOLOGIC Collected: 11/07/2017 Status: F Source: [place] 4:30 [facility] REPOSITORY TYPE CODE TESTS RESULT OUT OF REFERENCE UNITS RANGE LAB TPROTS 74-156 % Total Protein 84 S LAB FPROTS 55-148 % Free Protein 99 S Performed By: #### MG1, PHOS, BMP, RETIC, PRCFUN, PROTSI, PRSCLT #### [facility] [address] [place], [place] [address] PROTEIN S CLOTTABLE Collected: 11/07/2017 Status: F Source: [place] 4:30 AM [facility] REPOSITORY TYPE CODE TESTS RESULT OUT OF REFERENCE UNITS RANGE LAB PRSCLT 59-131 % Protein S 75 Clottable Performed By: #### MG1, PHOS, BMP, RETIC, PRCFUN, PROTSI, PRSCLT #### [place] [id number] TYPE AND SCREEN Collected: 11/07/2017 Status: F Source: [place] 4:30 AM [facility] REPOSITORY TYPE CODE TESTS RESULT OUT OF REFERENCE UNITS RANGE LAB %ABR B ABO/RH(D) POSITIVE LAB % Antibody POS Screen Performed By: #### TSCR #### [address] [address] CBC Collected: 11/07/2017 Status: F Source: [place] 4:30 AM [facility] REPOSITORY TYPE CODE TESTS RESULT OUT OF REFERENCE UNITS RANGE LAB WBC 3.70-11.00 k/uL WBC 9.11 LAB RBC 3.90-5.20 m/uL Low RBC 3.02 LAB HGB 11.5-15.5 g/dL Low Hemoglobin 9.4 LAB HCT 36.0-46.0 % Low Hematocrit 28.8 LAB MCV 80.0-100.0 fL MCV 95.4 LAB MCH 26.0-34.0 pG MCH 31.1 LAB MCHC 30.5-36.0 g/dL MCHC 32.6 LAB RDWCV 11.5-15.0 % RDW-CV High 25.4 LAB PLTCT 150-400 k/uL Low Platelet Count 33 Result Comment: Result checked and verified No clot detected. LAB MPV 9.0-12.7 fL MPV <<DO NOT REPORT>> LAB ABSNUC <0.01 k/uL 0.03 High Absolute nRBC Performed By: #### CBC #### [facility] [address] [place], [place] [address] CBC Collected: 11/06/2017 Status: F Source: [place] 8:03 PM [facility] REPOSITORY TYPE CODE TESTS RESULT OUT OF REFERENCE UNITS RANGE LAB WBC 3.70-11.00 k/uL WBC 8.54 LAB RBC 3.90-5.20 m/uL Low RBC 3.03 LAB HGB 11.5-15.5 g/dL Low Hemoglobin 9.7 LAB HCT 36.0-46.0 % Low Hematocrit 29.4 LAB MCV 80.0-100.0 fL MCV 97.0 LAB MCH 26.0-34.0 pG MCH 32.0 LAB MCHC 30.5-36.0 g/dL MCHC 33.0 LAB RDWCV 11.5-15.0 % RDW-CV High 25.6 LAB PLTCT 150-400 k/uL Low Platelet Count 34 Result Comment: Result checked and verified No clot detected. LAB MPV 9.0-12.7 fL MPV <<DO NOT REPORT>> LAB ABSNUC <0.01 k/uL <0.01 Absolute nRBC Performed By: #### CBC #### [facility] [address] [place], [place] [address] NURSING PROG Observed: 11/06/2017 Status: COMPLETED Source: [place] 7:33 PM [facility] REPOSITORY HNO ID: [id number] Author: Grace (Rn) JEFF Deal Service: (none) Author Type: Registered Nurse Type: Nursing Progress Note Filed: 11/06/2017 7:36 PM Note Text: Nursing Progress Note Patient Name: Paloma Cannon Patient Location: [place] [address] Daily Note:Per nursing communication, drainage bag removed from right side of groin. Surgical site to right side of groin healed. There is no drainage or open areas noted. This nurse placed interdry to site to prevent MASD. Patient refused every two hour turns. Used bedpan. Patient able to turn self when cued. Safety maintained. Peripheral iv removed from left forearm. This note was completed by: Grace Deal RN CASE MANAGEM Observed: 11/06/2017 Status: COMPLETED Source: [place] 3:30 PM [facility] REPOSITORY HNO ID: [id number] Author: Jacinta Aguilar (Rn) JEFF Olmedo Service: Care Management Author Type: Registered Nurse Type: Care Mgt Progress Note Filed: 11/07/2017 9:58 AM Note Text: CARE MANAGEMENT PROGRESS NOTE SERVICE DATE: 11/06/2017 SERVICE TIME:*3:30 PM LOS: 12 days FREEDOM OF CHOICE GIVEN: Yes to pt Financial Disclosure Provided The patient and/or family has been given the Provider List: Yes Provider List: Rehab Facility Preference: pt would like to discuss w [facility] AR liason Needs Prior to Discharge: Accepting Facility;Discharge Transportation;Facility or Agency Choices;Insurance Authorization : Dc date TBD. Skilled AR, AR referral sent to [facility] for information to assist pt w deciding AR location. 2L NC via [employer]. Current on 2LO2/nc. Pt will be at bedside 11/08 between 9an and 3p to participate in dc planning. . . Apheresis, IHD, pain, leg numbness/weakness improving. CM to continue to follow SIGNATURE: Jacinta Olmedo RN PATIENT NAME: Paloma Cannon DATE: November 06, 2017 TIME: 3:30 PM PAGER/CONTACT #: [phone] CBC Collected: 11/06/2017 Status: F Source: [place] 10:12 AM [facility] REPOSITORY TYPE CODE TESTS RESULT OUT OF REFERENCE UNITS RANGE LAB WBC 3.70-11.00 k/uL WBC 8.42 LAB RBC 3.90-5.20 m/uL Low RBC 2.95 LAB HGB 11.5-15.5 g/dL Low Hemoglobin 9.5 LAB HCT 36.0-46.0 % Low Hematocrit 28.5 LAB MCV 80.0-100.0 fL MCV 96.6 LAB MCH 26.0-34.0 pG MCH 32.2 LAB MCHC 30.5-36.0 g/dL MCHC 33.3 LAB RDWCV 11.5-15.0 % RDW-CV High 25.6 LAB PLTCT 150-400 k/uL Low Platelet Count 40 Result Comment: Result checked and verified No clot detected. LAB MPV 9.0-12.7 fL MPV High 14.0 LAB ABSNUC <0.01 k/uL High Absolute nRBC 0.02 Performed By: #### CBC #### [facility] [address] [place], [place] [address] CONSULT PROG Observed: 11/06/2017 Status: COMPLETED Source: [place] 9:49 AM [facility] REPOSITORY HNO ID: [id number] Author: Aj Keenan Service: Hematology Author Type: Physician Type: Consult Progress Note Filed: 11/06/2017 7:39 PM Note Text: ? [facility] DEPARTMENT OF HEMATOLOGIC ONCOLOGY AND BLOOD DISORDERS ? Hematology Consult Follow Up ? ? Patient name: Paloma Cannon : 1990 Date of Service: November 06, 2017 Supervising attending physician: Dr. Keenan ? INTERVAL HISTORY: No acute issues Feeling much better Had HD this morning Current hospital medications: carvedilol 12.5 mg tab(s) (COREG) 12.5 mg ORAL/FEEDING TUBE BID w MEALS HYDROmorphone 0.4 mg injection (DILAUDID) 0.4 mg INTRAVENOUS q 3 H PRN furosemide 100 mg injection (LASIX) 100 mg INTRAVENOUS BID 9a/5p calcium gluconate 3 g in NaCl 0.9% 1,000 mL 3 g INTRAVENOUS APHERESIS albumin (5%) 50 g infusion 1,000 mL INTRAVENOUS APHERESIS sodium citrate 4% 3-6 mL catheter lock 3-6 mL INTRALUMINAL APHERESIS PRN lidocaine 5 % 1 Patch (LIDODERM) 1 Patch TRANSDERMAL DAILY lidocaine patch - REMOVE OTHER AT BEDTIME lidocaine - VERIFY PATCH OTHER q 8 H gabapentin 300 mg cap(s) (NEURONTIN) 300 mg ORAL q 12 H cyclophosphamide (CYTOXAN) cap(s) 75 mg 75 mg ORAL DAILY oxyCODONE IR 10 mg tab(s) (ROXICODONE) 10 mg ORAL/FEEDING TUBE q 6 H polyethylene glycol 3350 17 g packet (MIRALAX, GLYCOLAX) 17 g ORAL/FEEDING TUBE DAILY docusate sodium 100 mg cap(s) (COLACE) 100 mg ORAL BID amLODIPine 10 mg tab(s) (NORVASC) 10 mg ORAL/FEEDING TUBE DAILY senna 8.6 mg tab(s) (SENOKOT) 8.6 mg ORAL/FEEDING TUBE BID pantoprazole DR 40 mg tab(s) (PROTONIX) 40 mg ORAL DAILY (6 AM) ondansetron 8 mg tab(s) (ZOFRAN) 8 mg ORAL q 8 H PRN diphenhydrAMINE 50 mg (BENADRYL) 50 mg ORAL/FEEDING TUBE q 6 H PRN sulfamethoxazole-trimethoprim 400-80 mg 2 tablet (BACTRIM,SEPTRA) 2 tablet ORAL/FEEDING TUBE - predniSONE (DELTASONE) tab(s) 80 mg 80 mg ORAL/FEEDING TUBE DAILY hydrocortisone sodium succinate (PF) 100 mg injection (Solu- CORTEF) 100 mg INTRAVENOUS q 4 H PRN diphenhydrAMINE 50 mg injection (BENADRYL) 50 mg INTRAVENOUS q 4 H PRN prochlorperazine 5 mg injection (COMPAZINE) 5 mg INTRAVENOUS q 6 H PRN 0.9% NaCl 2-10 mL 2-10 mL INTRAVENOUS PRN 0.9% NaCl 3-5 mL 3-5 mL INTRAVENOUS q 12 H dextrose 50% in water 25-50 mL syringe 12.5-25 g INTRAVENOUS PRN dextrose 40 % 15 g 15 g ORAL PRN glucagon 1 mg injection (GLUCAGEN) 1 mg SUBCUTANEOUS PRN acetaminophen 650 mg tab(s) (TYLENOL) 650 mg ORAL/FEEDING TUBE q 6 H PRN acetaminophen 650 mg suppository (TYLENOL) 650 mg RECTAL q 6 H PRN ? PHYSICAL EXAMINATION: General: Alert, NAD.On Nasal canula 02. HEENT: Grossly PERRLA, EOMI, anicteric Heart/CV: Grossly RRR Lungs/Resp/Chest: Normal chest wall movement. Abd: Grossly ND, no HSM, no other masses Extremities/Skin: No rashes appreciated DATA: Labs: Component Latest Ref Rng AND Units 11/04/2017 11/04/2017 11/04/2017 11/05/2017 11/06/2017 12:54 PM 5:55 PM 10:45 PM WBC 3.70 - 11.00 k/uL 11.64 (H) 8.56 9.24 8.11 8.49 RBC 3.90 - 5.20 m/uL 2.99 (L) 3.14 (L) 2.95 (L) 2.84 (L) 2.95 (L) Hemoglobin 11.5 - 15.5 g/dL 9.5 (L) 9.9 (L) 9.1 (L) 8.8 (L) 9.3 (L) Hematocrit 36.0 - 46.0 % 28.5 (L) 29.9 (L) 27.9 (L) 27.1 (L) 27.8 (L) MCV 80.0 - 100.0 fL 95.3 95.2 94.6 95.4 94.2 MCH 26.0 - 34.0 pG 31.8 31.5 30.8 31.0 31.5 MCHC 30.5 - 36.0 g/dL 33.3 33.1 32.6 32.5 33.5 RDW-CV 11.5 - 15.0 % 25.4 (H) 25.8 (H) 25.0 (H) 25.1 (H) 25.5 (H) Platelet Count 150 - 400 k/uL 29 (L) 28 (L) 27 (L) 40 (L) 41 (L) MPV 9.0 - 12.7 fL <<DO NOT REPORT>> <<DO NOT REPORT>> <<DO NOT REPORT>> <<DO NOT REPORT>> 11.2 Absolute nRBC <0.01 k/uL 0.02 (H) 0.02 (H) 0.02 (H) 0.02 (H) 0.02 (H) Component Latest Ref Rng AND Units 11/04/2017 11/06/2017 LD 135 - 214 U/L 985 (H) 1,285 (H) Haptoglobin 31 - 238 mg/dL <10 (L) <10 (L) Component Latest Ref Rng AND Units 11/06/2017 Iron 41 - 186 ug/dL 90 TIBC 232 - 386 ug/dL 301 Transferrin Saturation 15 - 57 % 30 ASSESSMENT/PLAN: 27 y/o female?with PMHx of Triple-positive Anti-phospholipid Syndrome diagnosed in 2013?(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 Recent admission 10/13/17-10/23/17 for hemoptysis and SOB, requiring intubation, was in MICU for management of DAH. Admitted to MICU again for extensive left retroperitoneal hemorrhage s/p IR guided intervention (initially on 10/23 at [facility] and 10/26 here at [facility]. ? # Antiphospholipid antibody syndrome Extensive left retroperitoneal hemorrhage likely secondary to anticoagulant. Its an unfortunate case, she needs an anticoagulation for APS but bleeding episodes prohibit it. On IHD Last transfusion on 11/03- 2U of PRBC and 2 U of platelets Last apheresis on 11/03. - Hold off on any anticoagulation for now. Will monitor closley Please send for Protein C activity, Protein S function and Immuno (All ordered for you) in consideration for warfarin. - Please transfuse Platelets to keep Plt >30 K. Please check post transfusion CBC 1 hour after transfusion. - Please check Direct Coomb's, Reticulocyte count (ordered for you) for intravascular hemolysis work-up - Decreased Prednisone to 60mg PO (11/07-) - Continue with cytoxan to 75 mg for now, will discuss with Nephrology regarding increasing the dose back to 150mg. - Please Transfuse for Hgb >7 and Plt > 30. ? Hematology team will follow. Discussed with Dr. Keenan. Juan Christopher MD Fellow, Hematology and Medical Oncology Pager: [phone] STAFF ADDENDUM: I have reviewed the history, physical obtained and documented by the Fellow and I personally participated in all of the fernandes components. I have discussed the case and management of the patient's care with the Fellow. The following comments revise or confirm relevant fernandes components of the Fellow. She feels somewhat better--pain controlled but still there. She continues to have ongoing hemolysis; LDH elevated further and haptoglobin still low, but question the effect of the ongoing resorption of the massive RP hematoma on these parameters. Repeat Darby and retic ct to be done. PBS consistent with hemolysis and [place] [id number] CONSULT PROG Observed: 11/06/2017 Status: COMPLETED Source: [place] 9:04 AM [facility] REPOSITORY HNO ID: [id number] Author: Domingo Fleming Service: Radiology Author Type: Resident Type: Consult Progress Note Filed: 11/06/2017 9:08 AM Note Text: Interventional Radiology Progress Note Reason for Referral: Removal of R groin drain Seen and evaluated pt at bedside. Pt does NOT have groin drains in place. Pt has bilateral surgical groin incisions with drainage bag placed over them. R side without drainage for ~ 3 days per pt. Bag cap is open. L side with clear drainage likely due to fluid overload/seroma. Primary team ok to remove R drainage bag without further management. Discussed with IR staff Dr Aranda. Domingo Fleming [id number] CONSULT PROG Observed: 11/06/2017 Status: COMPLETED Source: [place] 9:04 AM [facility] REPOSITORY HNO ID: [id number] Author: Cheri Cuba Service: Nephrology Author Type: Physician Type: Consult Progress Note Filed: 11/06/2017 1:14 PM Note Text: CONSULT PROGRESS NOTE NEPHROLOGY SERVICE Subjective INTERVAL HISTORY: low creatinine Hypokalemia On 2L NC 3L U/o Seen on HD. Tolerating UF MEDICATIONS: Current hospital medications: carvedilol 12.5 mg tab(s) (COREG) 12.5 mg ORAL/FEEDING TUBE BID w MEALS HYDROmorphone 0.4 mg injection (DILAUDID) 0.4 mg INTRAVENOUS q 3 H PRN furosemide 100 mg injection (LASIX) 100 mg INTRAVENOUS BID 9a/5p calcium gluconate 3 g in NaCl 0.9% 1,000 mL 3 g INTRAVENOUS APHERESIS albumin (5%) 50 g infusion 1,000 mL INTRAVENOUS APHERESIS sodium citrate 4% 3-6 mL catheter lock 3-6 mL INTRALUMINAL APHERESIS PRN lidocaine 5 % 1 Patch (LIDODERM) 1 Patch TRANSDERMAL DAILY lidocaine patch - REMOVE OTHER AT BEDTIME lidocaine - VERIFY PATCH OTHER q 8 H gabapentin 300 mg cap(s) (NEURONTIN) 300 mg ORAL q 12 H cyclophosphamide (CYTOXAN) cap(s) 75 mg 75 mg ORAL DAILY oxyCODONE IR 10 mg tab(s) (ROXICODONE) 10 mg ORAL/FEEDING TUBE q 6 H polyethylene glycol 3350 17 g packet (MIRALAX, GLYCOLAX) 17 g ORAL/FEEDING TUBE DAILY docusate sodium 100 mg cap(s) (COLACE) 100 mg ORAL BID amLODIPine 10 mg tab(s) (NORVASC) 10 mg ORAL/FEEDING TUBE DAILY senna 8.6 mg tab(s) (SENOKOT) 8.6 mg ORAL/FEEDING TUBE BID pantoprazole DR 40 mg tab(s) (PROTONIX) 40 mg ORAL DAILY (6 AM) ondansetron 8 mg tab(s) (ZOFRAN) 8 mg ORAL q 8 H PRN diphenhydrAMINE 50 mg (BENADRYL) 50 mg ORAL/FEEDING TUBE q 6 H PRN sulfamethoxazole-trimethoprim 400-80 mg 2 tablet (BACTRIM,SEPTRA) 2 tablet ORAL/FEEDING TUBE predniSONE (DELTASONE) tab(s) 80 mg 80 mg ORAL/FEEDING TUBE DAILY hydrocortisone sodium succinate (PF) 100 mg injection (Solu- CORTEF) 100 mg INTRAVENOUS q 4 H PRN diphenhydrAMINE 50 mg injection (BENADRYL) 50 mg INTRAVENOUS q 4 H PRN prochlorperazine 5 mg injection (COMPAZINE) 5 mg INTRAVENOUS q 6 H PRN 0.9% NaCl 2-10 mL 2-10 mL INTRAVENOUS PRN 0.9% NaCl 3-5 mL 3-5 mL INTRAVENOUS q 12 H dextrose 50% in water 25-50 mL syringe 12.5-25 g INTRAVENOUS PRN dextrose 40 % 15 g 15 g ORAL PRN glucagon 1 mg injection (GLUCAGEN) 1 mg SUBCUTANEOUS PRN acetaminophen 650 mg tab(s) (TYLENOL) 650 mg ORAL/FEEDING TUBE q 6 H PRN acetaminophen 650 mg suppository (TYLENOL) 650 mg RECTAL q 6 H PRN Objective PHYSICAL EXAM: BP 159/75 Pulse 96 Temp 36.4 ?C (97.5 ?F) (Oral) Resp 19 Ht 160 cm (5' 3) Wt 100.6 kg (221 lb 12.5 oz) SpO2 96% BMI 39.29 kg/m? Intake/Output Summary (Last 24 hours) at 11/06/17 0904 Last data filed at 11/06/17 0635 Gross per 24 hour Intake 472.2 ml Output 2800 ml Net -2327.8 ml Constitutional: No acute distress, Responsive and Overweight Neck: Trachea midline Cardiovascular: Regular rate and rhythm; S1 + S2 + 0 edema +++ Respiratory: Normal respiratory effort. Lungs clear bilaterally. Abdomen: Soft, non-tender, non-distended.has an ostomy back for serous drainage from abdomen Psychiatric: Alert and oriented x self, place, time, and setting Normal mood/affect Vascular Access: Hemodialysis catheter location: Left Tunneled internal jugular. Exit site demonstrates: normal findings DATA: Diagnostic tests reviewed for today's visit: Most recent labs and imaging results. Recent Labs 11/06/17 0535 11/05/17 1908 11/05/17 0522 11/04/17 0510 11/02/17 2340 11/02/17 0120 NA 136 134* 135* 133* 132* 134* K 3.5* 3.3* 3.0* 3.3* 3.7 3.9 CHLOR 95* 92* 96* 95* 94* 95* CO2 28 21* 24 25 21* 24 BUN 50* 45* 48* 45* 36* 27* CREAT 1.10* 1.14* 1.19* 1.24* 1.25* 1.18* GLUC 107* 195* 100* 143* 124* 93 ANION 13 21* 15 13 17 15 CA 8.6 8.4* 8.4* 8.6 8.4* 8.4* P 3.3 -- 3.4 3.2 3.1 2.1* MG 1.7 -- 1.7 1.9 1.8 2.0 Recent Labs 11/06/17 0535 11/06/17 0130 11/05/17 1908 WBC 8.49 8.14 8.11 HB 9.3* 9.0* 8.8* HCT 27.8* 27.5* 27.1* PLT 41* 45* 40* Assessment/Plan 27 year old female with history of HTN CKD stage 3 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 Transferred from OSH where she presented with CAPRICE in the setting of retroperioneal hemorrhage with mass effect on L kidney s/p embolization on 10/23 .Nephrology consulted for CAPRICE ? 1. 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 -recovering -Serological work up : low c3 and c4 -Non oliguric . Clinically has anasarca - IUF today ? 2.Anemia and thrombocytopenia -concern for Micro angiopathic hemolytic anemia hapto <10 , LDH 1730 , few RBC fragments seen ? Associated problems -Electrolytes: Hyponatremia - stable - Volume status: hypervolemic -.Acid-base: AG metabolic acidosis - Anemia and thrombocytopenia -multifactorial -blood loss , myelopsupression in the setting of cytoxan use -HTN -?Page kidney ? Active diagnoses Retroperitoneal hematoma Acute blood loss anemia HTN APS Moraxella Pneumonia ? PLAN -IUF 3L -continue IV lasix 100mg BID - Strict I/O's - Dose medications for eGFR <10 mL/min ? Consent for PAINT COATING MACHINE OPERATOR: PAINT COATING MACHINE OPERATOR initiation date: 10/26/17 Consent obtained and in EMR. Cheri Cuba MD/Staff November 06, 2017 9:06 AM PAGER # [phone] Department of Nephrology and Hypertension PROGRESS Observed: 11/06/2017 Status: COMPLETED Source: [place] 6:03 AM [facility] REPOSITORY HNO ID: [id number] Author: Edson Mohr Service: General Internal Medicine Author Type: Physician Type: Progress Notes Filed: 11/06/2017 3:11 PM Note Text: DEPARTMENT OF INTERNAL MEDICINE: PROGRESS NOTE PRIMARY TEAM: [facility] Terry Weekdays 7 am to 5 pm/Weekend 7 am to 3 pm: Page [phone] Weekdays 5 pm to 7 am/Weekend 3 pm to 7 am: [employer] Pager [phone] PATIENT NAME: Paloma Cannon BRIEF PLAN FOR TODAY: - Appreciate hematology and nephrology recommendations - Dialysis for UF on 11/06/2017 - continue IV Lasix 100 mg BID given good response to diuretics - Continue Cytoxan and prednisone - Continue Bactrim prophylaxis - Uptitrate Carvedilol as tolerated with holding parameters - Monitor UOP, Strict I/O, avoid nephrotoxic drugs. - Encourage ambulation and PT/OT evaluation - Will need to adjust pain medications as tolerated INTERVAL HPI: No acute events overnight. She is hemodynamically stable. Subjectively she was complaining of left sided abdominal pain which is being managed with IV dilaudid. In terms of her labs, Hgb: 9.3 Plt: 41 Creatinine: 1.24-->1.10 K: 3.5 Intake/Output Summary (Last 24 hours) at 11/06/17 1317 Last data filed at 11/06/17 1300 Gross per 24 hour Intake 472.2 ml Output 5300 ml Net -4827.8 ml Consults: Hematology: Hold off AC, Tranfuse to keep Hgb >7 and plt >30, continue with cytoxan and prednisone Nephrology: Following for ongoing need of IUF PHYSICAL EXAM: BP 150/72 Pulse 94 Temp 36.6 ?C (97.9 ?F) (Oral) Resp 18 Ht 160 cm (5' 3) Wt 100.6 kg (221 lb 12.5 oz) SpO2 95% BMI 39.29 kg/m? General: Alert and oriented, no apparent distress. On 2LNC HEENT: No cervical lymphadenopathy, no pharyngeal erythema Heart: Regular rate and rhythm, s1s2, no murmurs rubs or gallops Lungs: Clear to auscultation bilaterally Abdomen: Positive bowel sounds, soft, nontender, nondistended Extremities: Warm, 1/2+ lower extremity edema Neuro: moving all extremities freely MEDICATIONS: Current hospital medications: HYDROmorphone 0.4 mg injection (DILAUDID) 0.4 mg INTRAVENOUS q 3 H PRN furosemide 100 mg injection (LASIX) 100 mg INTRAVENOUS BID 9a/5p calcium gluconate 3 g in NaCl 0.9% 1,000 mL 3 g INTRAVENOUS APHERESIS albumin (5%) 50 g infusion 1,000 mL INTRAVENOUS APHERESIS sodium citrate 4% 3-6 mL catheter lock 3-6 mL INTRALUMINAL APHERESIS PRN lidocaine 5 % 1 Patch (LIDODERM) 1 Patch TRANSDERMAL DAILY lidocaine patch - REMOVE OTHER AT BEDTIME lidocaine - VERIFY PATCH OTHER q 8 H carvedilol 6.25 mg tab(s) (COREG) 6.25 mg ORAL/FEEDING TUBE BID w MEALS gabapentin 300 mg cap(s) (NEURONTIN) 300 mg ORAL q 12 H cyclophosphamide (CYTOXAN) cap(s) 75 mg 75 mg ORAL DAILY oxyCODONE IR 10 mg tab(s) (ROXICODONE) 10 mg ORAL/FEEDING TUBE q 6 H polyethylene glycol 3350 17 g packet (MIRALAX, GLYCOLAX) 17 g ORAL/FEEDING TUBE DAILY docusate sodium 100 mg cap(s) (COLACE) 100 mg ORAL BID hydrALAZINE 10 mg injection (APRESOLINE) 10 mg INTRAVENOUS q 2 H PRN amLODIPine 10 mg tab(s) (NORVASC) 10 mg ORAL/FEEDING TUBE DAILY senna 8.6 mg tab(s) (SENOKOT) 8.6 mg ORAL/FEEDING TUBE BID pantoprazole DR 40 mg tab(s) (PROTONIX) 40 mg ORAL DAILY (6 AM) ondansetron 8 mg tab(s) (ZOFRAN) 8 mg ORAL q 8 H PRN diphenhydrAMINE 50 mg (BENADRYL) 50 mg ORAL/FEEDING TUBE q 6 H PRN sulfamethoxazole-trimethoprim 400-80 mg 2 tablet (BACTRIM,SEPTRA) 2 tablet ORAL/FEEDING TUBE predniSONE (DELTASONE) tab(s) 80 mg 80 mg ORAL/FEEDING TUBE DAILY hydrocortisone sodium succinate (PF) 100 mg injection (Solu- CORTEF) 100 mg INTRAVENOUS q 4 H PRN diphenhydrAMINE 50 mg injection (BENADRYL) 50 mg INTRAVENOUS q 4 H PRN prochlorperazine 5 mg injection (COMPAZINE) 5 mg INTRAVENOUS q 6 H PRN 0.9% NaCl 2-10 mL 2-10 mL INTRAVENOUS PRN 0.9% NaCl 3-5 mL 3-5 mL INTRAVENOUS q 12 H dextrose 50% in water 25-50 mL syringe 12.5-25 g INTRAVENOUS PRN dextrose 40 % 15 g 15 g ORAL PRN glucagon 1 mg injection (GLUCAGEN) 1 mg SUBCUTANEOUS PRN acetaminophen 650 mg tab(s) (TYLENOL) 650 mg ORAL/FEEDING TUBE q 6 H PRN acetaminophen 650 mg suppository (TYLENOL) 650 mg RECTAL q 6 H PRN FLUID BALANCE: Intake/Output Summary (Last 24 hours) at 11/06/17 0704 Last data filed at 11/06/17 0600 Gross per 24 hour Intake 712.2 ml Output 2800 ml Net -2087.8 ml DATA: LABS: CBC, Coags, BMP, Mg, Phos Recent Labs 11/06/17 1012 11/06/17 0535 11/06/17 0130 11/05/17 1908 11/05/17 0522 11/04/17 0510 WBC 8.42 8.49 8.14 8.11 8.54 < > 11.31* HB 9.5* 9.3* 9.0* 8.8* 8.8* < > 9.4* HCT 28.5* 27.8* 27.5* 27.1* 26.8* < > 28.0* PLT 40* 41* 45* 40* 23* < > 34* NA -- 136 -- 134* 135* -- 133* K -- 3.5* -- 3.3* 3.0* -- 3.3* CHLOR -- 95* -- 92* 96* -- 95* CO2 -- 28 -- 21* 24 -- 25 BUN -- 50* -- 45* 48* -- 45* CREAT -- 1.10* -- 1.14* 1.19* -- 1.24* GLUC -- 107* -- 195* 100* -- 143* CA -- 8.6 -- 8.4* 8.4* -- 8.6 MG -- 1.7 -- -- 1.7 -- 1.9 P -- 3.3 -- -- 3.4 -- 3.2 < > = values in this interval not displayed. Liver Function, Amylase, AND Lipase Recent Labs 11/04/17 0510 TBILI 1.3 ASSESSMENT AND PLAN: Active Hospital Problems Diagnosis - Retroperitoneal hematoma Retroperitoneal bleed: s/p 7 units PRBCs s/p IR emobolization of left L3 artery at [facility] on 10/23 IR embolization of left L2 and L3 arteries on 10/26 CT abd/pel 10/31: RP bleed stable when compared to previous imaging from 10/27 LDH 1730, haptoglobin <10, Tbili 1.3- concern for hemolysis as well. Per heme, thrombocytopenia and anemia likely related to cytoxan with stressed BM Cytoxan reduced to 75 mg daily Plan: Continue to monitor HANDH and transfuse PRBC if Hb<7 or symptomatic Continue to hold Anticoagulation until approved by Vascular medicine- initially recommended holding AC for at least 14 days since last bleeding. 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 Has received stenting of IVC and iliacs along with endograft of IVC. 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 C/B extensive RP bleed s/p L2, L3 embolization. Plan: Continue Cytoxan 75 mg and prednisone 80 mg with bactrim ppx Appreciate hematology and recs Received Apheresis on 10/31 and 11/03 Hematology is following - CAPRICE (acute kidney injury) (HCC) CAPRICE on CKD III, 2/2 contrast, now requiring dialysis First HD at [facility] on 10/25 with tunneled dialysis catheter placement followed by [address] Abdomen/pelvis from 10/26 showed occlusion of B/L renal veins, outflow not appreciated- could be attributing to CAPRICE and CKD Bladder scan UOP improving Responding well to IV Diuretics Creatinine back to baseline Plan: Nephrology following- appreciate recommendations Daily BMPs to watch K, Na and phosphorus levels Renal dosing of medication Avoid excess fluids and nephrotoxic drugs Continue IV Lasix 100 mg BID and monitor urine output - HTN (hypertension) Mildly decreased systolic function, diastolic function indeterminate on 10/13/17 ECHO. 10/28: Run of SBP in 200s overnight (likely d/t pain), given hydralazine however still consistently in 170s-180s 10/29: Still hypertensive, required 4 doses of hydralazine overnight Currently on Amlodipine 10 mg and Coreg 6.25 mg BID Plan: Continue Amlodipine and Coreg at current dosing, can up titrate coreg if tolerating well (HR currently 80-100) - Diffuse pulmonary alveolar hemorrhage Currently stable, no new episodes Has had 6 admissions recently for acute respiratory failure requiring mechanical ventilation Cytoxan was reduced from 150 to 75 mg due to concern for BM toxicity Plan: Continue to monitor respiratory status Continue oxygen therapy at 2L NC Continue Cytoxan 75 mg QD renally dosed Continue Prednisone 80 mg daily with Bactrim PPX - Moraxella catarrhalis pneumonia (HCC) Had respiratory cultures growing Moraxella catarrhalis Received ceftriaxone 10/27-11/03- 7 days therapy WBC trended down from 21 K to 12K. Currently at baseline O2 requirement but still slightly tachypneic Ceftriaxone discontinued after 7 days of treatment Plan: Continue to monitor respiratory status closely BPH per RT - Peripheral neuropathy - History of heparin-induced thrombocytopenia Avoid all heparin products. - Weakness of left leg 11/02 Left leg weakness/parasthesia Likely related to lumbar nerve compression from large retroperitoneal hematoma Neurology was following, recommended no further intervention On gabapentin renally dosed. - Right groin pain 10/27: C/o acute pain this morning, access site for embolization at [facility], no erythema or induration appreciated on exam, exquisitely TTP Groin study showed no signs of PSA, known AV fistula visualized with retrograde flow, vascular med aware- no further recs 10/28: pain less severe, no physical exam findings Repeat Leg DVT shows no pseudoaneurysm Likely due to nerve compression/RP hematoma causing compressive symtpoms S/p R groin bag placed at [facility] on 10/24 s/p L groin bag placed at [facility] during embolization on 10/26 Plan: - Pain management-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 WAITER/WAITRESS CABIN CLASS as of transfer to [facility] - Will continue to wean dilaudid as pt tolerates, currently kept her on Dilaudid 0.4 mg q3h PRN for pain SIGNATURE: Dayton Acuna MD, PGY2 PAGER: [phone] DATE of SERVICE: November 06, 2017 TIME of SERVICE: 6:04 AM This note is not final until signed by a Staff Physician DR. FRED STONE, SR. HOSPITAL STAFF PHYSICIAN NOTE OF PERSONAL INVOLVEMENT IN CARE I have reviewed the history and physical examination obtained and documented by the resident and I personally participated in the fernandes components. I have discussed the case and management of the patient's care. The following comments revise or confirm relevant fernandes components of their note. Seen in dialysis unit IMPRESSION: This is a 27 year old female catastrophic APS complicated by PE/DVT, DAH , HIT was on intermediate card tender coumadin, cytoxan , prednisone and pheresis. Recent admission for DAH. 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 , volume overload thrombocytopenia, persistent anemia and Moraxella Pneumonia Stable persistent L sided abdominal pain PLAN: as delineated above Unable to anticoagulate at this time ok to remove R drainage bag as per IR SIGNATURE: Edson Mohr MD PAGER: [phone] DATE of SERVICE: November 06, 2017 TIME of SERVICE: 11:00 am CBC Collected: 11/06/2017 Status: F Source: [place] 5:35 AM [facility] REPOSITORY TYPE CODE TESTS RESULT OUT OF REFERENCE UNITS RANGE LAB WBC 3.70-11.00 k/uL WBC 8.49 LAB RBC 3.90-5.20 m/uL Low RBC 2.95 LAB HGB 11.5-15.5 g/dL Low Hemoglobin 9.3 LAB HCT 36.0-46.0 % Low Hematocrit 27.8 LAB MCV 80.0-100.0 fL MCV 94.2 LAB MCH 26.0-34.0 pG MCH 31.5 LAB MCHC 30.5-36.0 g/dL MCHC 33.5 LAB RDWCV 11.5-15.0 % RDW-CV High 25.5 LAB PLTCT 150-400 k/uL Low Platelet Count 41 Result Comment: Result checked and verified No clot detected. LAB MPV 9.0-12.7 fL MPV 11.2 LAB ABSNUC <0.01 k/uL High Absolute nRBC 0.02 Performed By: #### CBC, MG1, PHOS, IRON, BMP, HAPTO, LD6 #### [facility] [address], [place] [address] MAGNESIUM Collected: 11/06/2017 Status: F Source: [place] 5:35 AM [facility] REPOSITORY TYPE CODE TESTS RESULT OUT OF REFERENCE UNITS RANGE LAB MG 1.7-2.3 mg/dL Magnesium 1.7 Performed By: #### CBC, MG1, PHOS, IRON, BMP, HAPTO, LD6 #### [facility] [address] [place] [address] PHOSPHORUS Collected: 11/06/2017 Status: F Source: [place] 5:35 AM [facility] REPOSITORY TYPE CODE TESTS RESULT OUT OF REFERENCE UNITS RANGE LAB PHOS 2.7-4.8 mg/dL Phosphorus 3.3 Performed By: #### CBC, MG1, PHOS, IRON, BMP, HAPTO, LD6 #### [place] [id number] [place] [address] IRON AND TIBC Collected: 11/06/2017 Status: F Source: [place] 5:35 AM [facility] REPOSITORY TYPE CODE TESTS RESULT OUT OF REFERENCE UNITS RANGE LAB IRN 41-186 ug/dL Iron 90 LAB TIBC 232-386 ug/dL TIBC 301 LAB SAT 15-57 % Transferrin Saturatn 30 Performed By: #### CBC, MG1, PHOS, IRON, BMP, HAPTO, LD6 #### [facility] [address], [place] [address] BASIC METABOLIC PANL Collected: 11/06/2017 Status: F Source: [place] 5:35 AM [facility] REPOSITORY TYPE CODE TESTS RESULT OUT OF REFERENCE UNITS RANGE LAB GLU 74-99 mg/dL High Glucose 107 Result Comment: The [place] [employer] (ADA) provides guidance for cutoff values for fasting glucose and random glucose. The ADA defines fasting as no caloric intake for at least 8 hours. Fas ting plasma glucose results between 100 to 125 mg/dL indicate increased risk for diabetes (prediabetes). Fasting plasma glucose results greater than or equal to 126 mg/dL meet the criteria for diagnosis of diabetes. In the absence of unequivocal hyperglycemia, results should be confirmed by repeat testing. In a patient with classic symptoms of hyperglycemia or hyperglycemic crisis, random plasma glucose results greater than or equal to 200 mg/dL meet the criteria for diagnosis of diabetes. Reference: Standards of Medical Care in Diabetes 2016, [place] [employer]. Diabetes Care. 2016.39(Suppl 1). LAB BUN 7-21 mg/dL BUN High 50 LAB CRET 0.58-0.96 mg/dL Creatinine High 1.10 LAB NA 136-144 mmol/L Sodium 136 LAB K 3.7-5.1 mmol/L Low Potassium 3.5 LAB CL 97-105 mmol/L Low Chloride 95 LAB CO2 22-30 mmol/L CO2 28 LAB AGAP 9-18 mmol/L Anion Gap 13 LAB CA 8.5-10.2 mg/dL Calcium, Total 8.6 LAB GFRAA eGFR- Amer. >60 LAB GFRNAA . eGFR-All Other Races 59 Result Comment: eGFR (Estimated GFR) Units of measure: mL/min/1.73 meters squared eGFR is derived from the reexpressed MDRD Study equation using the following parameters: serum creatinine, age, gender and race. The creatinine assay has been calibrated to be traceable to IDMS. An eGFR <60 mL/min/1.73m2 for >3 months is consistent with chronic kidney disease. Refer to KDOQI guidelines for clinical interpretation. In patients with unstable renal function, e.g. those with acute kidney injury, the eGFR may not accurately reflect actual GFR. Performed By: #### CBC, MG1, PHOS, IRON, BMP, HAPTO, LD6 #### [facility] [address] [place], [place] [address] HAPTOGLOBIN Collected: 11/06/2017 Status: F Source: [place] 5:35 AM [facility] REPOSITORY TYPE CODE TESTS RESULT OUT OF REFERENCE UNITS RANGE LAB HAPTO 31-238 mg/dL Low Haptoglobin <10 Performed By: #### CBC, MG1, PHOS, IRON, BMP, HAPTO, LD6 #### [facility] [address], [place] [address] LD Collected: 11/06/2017 Status: F Source: [facility] 5:35 AM [facility] REPOSITORY TYPE CODE TESTS RESULT OUT OF RANGE REFERENCE UNITS LAB LD 135-214 U/L High LD 1285 Performed By: #### CBC, MG1, PHOS, IRON, BMP, HAPTO, LD6 #### [facility] [address], [place] [address] CBC Collected: 11/06/2017 Status: F Source: [place] 1:30 AM [facility] REPOSITORY TYPE CODE TESTS RESULT OUT OF REFERENCE UNITS RANGE LAB WBC 3.70-11.00 k/uL WBC 8.14 LAB RBC 3.90-5.20 m/uL Low RBC 2.89 LAB HGB 11.5-15.5 g/dL Low Hemoglobin 9.0 LAB HCT 36.0-46.0 % Low Hematocrit 27.5 LAB MCV 80.0-100.0 fL MCV 95.2 LAB MCH 26.0-34.0 pG MCH 31.1 LAB MCHC 30.5-36.0 g/dL MCHC 32.7 LAB RDWCV 11.5-15.0 % RDW-CV High 25.5 LAB PLTCT 150-400 k/uL Low Platelet Count 45 Result Comment: Result checked and verified No clot detected. LAB MPV 9.0-12.7 fL MPV <<DO NOT REPORT>> LAB ABSNUC <0.01 k/uL 0.02 High Absolute nRBC Performed By: #### CBC #### [facility] [address], [place] [address] NURSING PROG Observed: 11/05/2017 Status: COMPLETED Source: [place] 10:22 PM [facility] REPOSITORY HNO ID: [id number] Author: Daria SanchezRn) JEFF Wagner Service: (none) Author Type: Registered Nurse Type: Nursing Progress Note Filed: 11/06/2017 6:57 AM Note Text: Nursing Progress Note Patient Name: Paloma Cannon Patient Location: H080 015/H080-16 Daily Note: 2200 - Potassium IV to infuse over 2 hours, lab draw q6 hours. Pt. Is c/o 9/10 left sided pain that is being relieved by pain medication. Alert and awake. Continues to request all prescribed pain medication on schedule throughout shift. 0400 - 50cc of clear yellow liquid from the L groin drain. This note was completed by: Daria Wagner RN CBC Collected: 11/05/2017 Status: F Source: [place] 7:08 PM [facility] REPOSITORY TYPE CODE TESTS RESULT OUT OF REFERENCE UNITS RANGE LAB WBC 3.70-11.00 k/uL WBC 8.11 LAB RBC 3.90-5.20 m/uL Low RBC 2.84 LAB HGB 11.5-15.5 g/dL Low Hemoglobin 8.8 LAB HCT 36.0-46.0 % Low Hematocrit 27.1 LAB MCV 80.0-100.0 fL MCV 95.4 LAB MCH 26.0-34.0 pG MCH 31.0 LAB MCHC 30.5-36.0 g/dL MCHC 32.5 LAB RDWCV 11.5-15.0 % RDW-CV High 25.1 LAB PLTCT 150-400 k/uL Low Platelet Count 40 Result Comment: Result checked and verified No clot detected. LAB MPV 9.0-12.7 fL MPV <<DO NOT REPORT>> LAB ABSNUC <0.01 k/uL 0.02 High Absolute nRBC Performed By: #### CBC, BMP #### [facility] [address], [place] [address] BASIC METABOLIC PANL Collected: 11/05/2017 Status: F Source: [place] 7:08 PM [facility] REPOSITORY TYPE CODE TESTS RESULT OUT OF REFERENCE UNITS RANGE LAB GLU 74-99 mg/dL High Glucose 195 Result Comment: The [place] Diabetes Association (ADA) provides guidance for cutoff values for fasting glucose and random glucose. The ADA defines fasting as no caloric intake for at least 8 hours. Fas ting plasma glucose results between 100 to 125 mg/dL indicate increased risk for diabetes (prediabetes). Fasting plasma glucose results greater than or equal to 126 mg/dL meet the criteria for diagnosis of diabetes. In the absence of unequivocal hyperglycemia, results should be confirmed by repeat testing. In a patient with classic symptoms of hyperglycemia or hyperglycemic crisis, random plasma glucose results greater than or equal to 200 mg/dL meet the criteria for diagnosis of diabetes. Reference: Standards of Medical Care in Diabetes 2016, [place] [employer]. Diabetes Care. 2016.39(Suppl 1). LAB BUN 7-21 mg/dL BUN High 45 LAB CRET 0.58-0.96 mg/dL Creatinine High 1.14 LAB NA 136-144 mmol/L Low Sodium 134 LAB K 3.7-5.1 mmol/L Low Potassium 3.3 LAB CL 97-105 mmol/L Low Chloride 92 LAB CO2 22-30 mmol/L Low CO2 21 LAB AGAP 9-18 mmol/L Anion Gap High 21 LAB CA 8.5-10.2 mg/dL Low Calcium, Total 8.4 LAB GFRAA eGFR- Amer. >60 LAB GFRNAA . eGFR-All Other Races 57 Result Comment: eGFR (Estimated GFR) Units of measure: mL/min/1.73 meters squared eGFR is derived from the reexpressed MDRD Study equation using the following parameters: serum creatinine, age, gender and race. The creatinine assay has been calibrated to be traceable to IDMS. An eGFR <60 mL/min/1.73m2 for >3 months is consistent with chronic kidney disease. Refer to KDOQI guidelines for clinical interpretation. In patients with unstable renal function, e.g. those with acute kidney injury, the eGFR may not accurately reflect actual GFR. Performed By: #### CBC, BMP #### [facility] [address] [place], [place] [address] NURSING PROG Observed: 11/05/2017 Status: COMPLETED Source: [place] 5:14 PM [facility] REPOSITORY HNO ID: [id number] Author: Kenisha SanchezRn) Licate, RN Service: Nursing Author Type: Registered Nurse Type: Nursing Progress Note Filed: 11/05/2017 6:55 PM Note Text: Nursing Progress Note Patient Name: Paloma Cannon Patient Location: H080 015/H080-16 Daily Note: K+ 3.3 today, 2 bags IV potassium given. 1 unit platelets given, premedicated with benadryl and solucortef, no s/s of reaction. Legs wrapped per order. Satting wnl on 2L NC. This note was completed by: Kenisha Ro RN CONSULT PROG Observed: 11/05/2017 Status: COMPLETED Source: [place] 12:19 PM [facility] REPOSITORY HNO ID: [id number] Author: Michelle Randhawa (Fel) Service: Hematology/Oncology Author Type: Fellow Type: Consult Progress Note Filed: 11/05/2017 12:24 PM Note Text: ? [facility] DEPARTMENT OF HEMATOLOGIC ONCOLOGY AND BLOOD DISORDERS ? Hematology Consult Follow Up ? ? Patient name: Paloma Cannon : 1990 Date of Service: November 05, 2017 Supervising attending physician: Dr. Keenan ? INTERVAL HISTORY: Transfer[facility] to [facility] overnight Complains about severe pain in the back. Oral pain medications are helping. Current hospital medications: hydrocortisone sodium succinate (PF) 100 mg injection (Solu- CORTEF) 100 mg INTRAVENOUS ONCE diphenhydrAMINE 50 mg injection (BENADRYL) 50 mg INTRAVENOUS ONCE potassium chloride iv piggyback 20 mEq/100 mL 20 mEq INTRAVENOUS q 1 H HYDROmorphone 0.4 mg injection (DILAUDID) 0.4 mg INTRAVENOUS q 3 H PRN furosemide 100 mg injection (LASIX) 100 mg INTRAVENOUS BID 9a/5p calcium gluconate 3 g in NaCl 0.9% 1,000 mL 3 g INTRAVENOUS APHERESIS albumin (5%) 50 g infusion 1,000 mL INTRAVENOUS APHERESIS sodium citrate 4% 3-6 mL catheter lock 3-6 mL INTRALUMINAL APHERESIS PRN lidocaine 5 % 1 Patch (LIDODERM) 1 Patch TRANSDERMAL DAILY lidocaine patch - REMOVE OTHER AT BEDTIME lidocaine - VERIFY PATCH OTHER q 8 H carvedilol 6.25 mg tab(s) (COREG) 6.25 mg ORAL/FEEDING TUBE BID w MEALS gabapentin 300 mg cap(s) (NEURONTIN) 300 mg ORAL q 12 H cyclophosphamide (CYTOXAN) cap(s) 75 mg 75 mg ORAL DAILY oxyCODONE IR 10 mg tab(s) (ROXICODONE) 10 mg ORAL/FEEDING TUBE q 6 H polyethylene glycol 3350 17 g packet (MIRALAX, GLYCOLAX) 17 g ORAL/FEEDING TUBE DAILY docusate sodium 100 mg cap(s) (COLACE) 100 mg ORAL BID hydrALAZINE 10 mg injection (APRESOLINE) 10 mg INTRAVENOUS q 2 H PRN amLODIPine 10 mg tab(s) (NORVASC) 10 mg ORAL/FEEDING TUBE DAILY senna 8.6 mg tab(s) (SENOKOT) 8.6 mg ORAL/FEEDING TUBE BID pantoprazole DR 40 mg tab(s) (PROTONIX) 40 mg ORAL DAILY (6 AM) ondansetron 8 mg tab(s) (ZOFRAN) 8 mg ORAL q 8 H PRN diphenhydrAMINE 50 mg (BENADRYL) 50 mg ORAL/FEEDING TUBE q 6 H PRN sulfamethoxazole-trimethoprim 400-80 mg 2 tablet (BACTRIM,SEPTRA) 2 tablet ORAL/FEEDING TUBE -WE- predniSONE (DELTASONE) tab(s) 80 mg 80 mg ORAL/FEEDING TUBE DAILY hydrocortisone sodium succinate (PF) 100 mg injection (Solu- CORTEF) 100 mg INTRAVENOUS q 4 H PRN diphenhydrAMINE 50 mg injection (BENADRYL) 50 mg INTRAVENOUS q 4 H PRN prochlorperazine 5 mg injection (COMPAZINE) 5 mg INTRAVENOUS q 6 H PRN 0.9% NaCl 2-10 mL 2-10 mL INTRAVENOUS PRN 0.9% NaCl 3-5 mL 3-5 mL INTRAVENOUS q 12 H dextrose 50% in water 25-50 mL syringe 12.5-25 g INTRAVENOUS PRN dextrose 40 % 15 g 15 g ORAL PRN glucagon 1 mg injection (GLUCAGEN) 1 mg SUBCUTANEOUS PRN acetaminophen 650 mg tab(s) (TYLENOL) 650 mg ORAL/FEEDING TUBE q 6 H PRN acetaminophen 650 mg suppository (TYLENOL) 650 mg RECTAL q 6 H PRN ? PHYSICAL EXAMINATION: General: Alert, NAD.On Nasal canula 02. HEENT: Grossly PERRLA, EOMI, anicteric Heart/CV: Grossly RRR Lungs/Resp/Chest: Normal chest wall movement. Abd: Grossly ND, no HSM, no other masses Extremities/Skin: No rashes appreciated DATA: Labs: CBC, Coags, BMP, Mg, Phos Recent Labs 11/05/17 0522 11/04/17 2245 11/04/17 1755 11/04/17 0510 11/02/17 2340 WBC 8.54 9.24 8.56 < > 11.31* < > 14.34* HB 8.8* 9.1* 9.9* < > 9.4* < > 8.1* HCT 26.8* 27.9* 29.9* < > 28.0* < > 24.7* PLT 23* 27* 28* < > 34* < > 35* NA 135* -- -- -- 133* -- 132* K 3.0* -- -- -- 3.3* -- 3.7 CHLOR 96* -- -- -- 95* -- 94* CO2 24 -- -- -- 25 -- 21* BUN 48* -- -- -- 45* -- 36* CREAT 1.19* -- -- -- 1.24* -- 1.25* GLUC 100* -- -- -- 143* -- 124* CA 8.4* -- -- -- 8.6 -- 8.4* MG 1.7 -- -- -- 1.9 -- 1.8 P 3.4 -- -- -- 3.2 -- 3.1 < > = values in this interval not displayed. Liver Function, Amylase, AND Lipase Recent Labs 11/04/17 0510 11/02/17 2340 TPROT -- 6.0* ALB -- 3.4* ALT -- 32 AST -- 34 ALKPHOS -- 79 TBILI 1.3 1.2 ASSESSMENT/PLAN: 27 y/o female?with PMHx of Triple-positive Anti-phospholipid Syndrome diagnosed in 2013?(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 Recent admission 10/13/17-10/23/17 for hemoptysis and SOB, requiring intubation, was in MICU for management of DAH. Admitted to MICU again for extensive left retroperitoneal hemorrhage s/p IR guided intervention (initially on 10/23 at [facility] and 10/26 here at [facility]. ? # Antiphospholipid antibody syndrome Extensive left retroperitoneal hemorrhage likely secondary to anticoagulant. Its an unfortunate case, she needs an anticoagulation for APS but bleeding episodes prohibit it. On IHD Last apheresis on 11/03. - Hold off on any anticoagulation for now [Discussed with Dr. Keenan]. - Please transfuse Platelets to keep Plt >30 K. Please check post transfusion CBC 1 hour after transfusion. - continue with Prednisone 80mg PO - Continue with cytoxan to 75 mg (per Nephro recs) - Please Transfuse for Hgb >7 and Plt > 30. ? Hematology team will follow. Discussed with Dr. Keenan. Michelle Randhawa MD Hematology and Oncology Fellow Pager: [phone] November 05, 2017 12:24 PM PROGRESS Observed: 11/05/2017 Status: COMPLETED Source: [place] 11:34 AM [facility] REPOSITORY O ID: [id number] Author: Maria G Junior Service: General Internal Medicine Author Type: Resident Type: Progress Notes Filed: 11/05/2017 11:44 AM Note Text: Attestation signed by Krysta Lopez at 11/05/2017 12:[address] FRED STONE, SR. HOSPITAL STAFF PHYSICIAN NOTE OF PERSONAL INVOLVEMENT IN CARE ? IMPRESSION: Patient is a very unfortunate 27 year old female with PMH CAPS c/b extensive thrombosis, DAH, HIT, stage 3 CKD 2/2 RVT and FABY, post thrombotic syndrome, HFpEF, HTN and peripheral neuropathy admitted with left leg pain found to have significant RP bleeding requiring L2/L3 vertebral artery embolization and hemolysis requiring transfusion of RBCs, PLTs and apheresis course c/b volume overloaded started on iHD for ultrafiltration. ? PLAN: Pain control significantly improved. H/H stable, will transfuse 1U PLTs today. Appreciate Nephrology/Hematology input. Continue to hold AC for now. Check BMP BID for now for electrolyte repletion. Will t/b with IR about removal of right groin drain. ? I have reviewed the documentation above obtained and documented by the Resident and have reviewed and updated the problem list as appropriate. I have personally performed a face to face assessment of the patient and I have discussed the case and management of the patient's care. ? Counseling (Inpatient): I personally spent 30 total minutes involved in the care of this patient. Greater than 50% of the time was spent counseling and/or coordinating care for the patient, the nature of which is noted above. ? STAFF PHYSICIAN:: Krysta Lopez MD DATE of SERVICE: 11/05/2017 TIME of SERVICE: 12:33 PM ? [facility] Progress Note PATIENT NAME: Paloma Cannon SERVICE DATE: 11/05/2017 SERVICE TIME: 11:34 AM Length of stay (days): 11 Plan for Today - Platelet transfusion per Heme maintain count >30K - IV potassium replacement -- patient unable to tolerate PO potassium due to GI upset) - Regular Diet - IR consult for evaluation/removal of groin drains (no longer having output from right side drain) - Hemolysis labs and iron studies ordered for AM Interval Events No acute events overnight. Afebrile. Hemodynamically stable. Reports pain is well-controlled at this time. Medications Current Facility-Administered Medications: hydrocortisone sodium succinate (PF) 100 mg injection (Solu- CORTEF) 100 mg INTRAVENOUS ONCE diphenhydrAMINE 50 mg injection (BENADRYL) 50 mg INTRAVENOUS ONCE potassium chloride iv piggyback 20 mEq/100 mL 20 mEq INTRAVENOUS q 1 H HYDROmorphone 0.4 mg injection (DILAUDID) 0.4 mg INTRAVENOUS q 3 H PRN furosemide 100 mg injection (LASIX) 100 mg INTRAVENOUS BID 9a/5p calcium gluconate 3 g in NaCl 0.9% 1,000 mL 3 g INTRAVENOUS APHERESIS albumin (5%) 50 g infusion 1,000 mL INTRAVENOUS APHERESIS sodium citrate 4% 3-6 mL catheter lock 3-6 mL INTRALUMINAL APHERESIS PRN lidocaine 5 % 1 Patch (LIDODERM) 1 Patch TRANSDERMAL DAILY And lidocaine patch - REMOVE OTHER AT BEDTIME And lidocaine - VERIFY PATCH OTHER q 8 H carvedilol 6.25 mg tab(s) (COREG) 6.25 mg ORAL/FEEDING TUBE BID w MEALS gabapentin 300 mg cap(s) (NEURONTIN) 300 mg ORAL q 12 H cyclophosphamide (CYTOXAN) cap(s) 75 mg 75 mg ORAL DAILY oxyCODONE IR 10 mg tab(s) (ROXICODONE) 10 mg ORAL/FEEDING TUBE q 6 H polyethylene glycol 3350 17 g packet (MIRALAX, GLYCOLAX) 17 g ORAL/FEEDING TUBE DAILY docusate sodium 100 mg cap(s) (COLACE) 100 mg ORAL BID hydrALAZINE 10 mg injection (APRESOLINE) 10 mg INTRAVENOUS q 2 H PRN amLODIPine 10 mg tab(s) (NORVASC) 10 mg ORAL/FEEDING TUBE DAILY senna 8.6 mg tab(s) (SENOKOT) 8.6 mg ORAL/FEEDING TUBE BID pantoprazole DR 40 mg tab(s) (PROTONIX) 40 mg ORAL DAILY (6 AM) ondansetron 8 mg tab(s) (ZOFRAN) 8 mg ORAL q 8 H PRN diphenhydrAMINE 50 mg (BENADRYL) 50 mg ORAL/FEEDING TUBE q 6 H PRN sulfamethoxazole-trimethoprim 400-80 mg 2 tablet (BACTRIM,SEPTRA) 2 tablet ORAL/FEEDING TUBE predniSONE (DELTASONE) tab(s) 80 mg 80 mg ORAL/FEEDING TUBE DAILY hydrocortisone sodium succinate (PF) 100 mg injection (Solu- CORTEF) 100 mg INTRAVENOUS q 4 H PRN diphenhydrAMINE 50 mg injection (BENADRYL) 50 mg INTRAVENOUS q 4 H PRN prochlorperazine 5 mg injection (COMPAZINE) 5 mg INTRAVENOUS q 6 H PRN 0.9% NaCl 2-10 mL 2-10 mL INTRAVENOUS PRN 0.9% NaCl 3-5 mL 3-5 mL INTRAVENOUS q 12 H dextrose 50% in water 25-50 mL syringe 12.5-25 g INTRAVENOUS PRN dextrose 40 % 15 g 15 g ORAL PRN glucagon 1 mg injection (GLUCAGEN) 1 mg SUBCUTANEOUS PRN acetaminophen 650 mg tab(s) (TYLENOL) 650 mg ORAL/FEEDING TUBE q 6 H PRN And acetaminophen 650 mg suppository (TYLENOL) 650 mg RECTAL q 6 H PRN Physical Exam BP 142/73 Pulse 102 Temp 36.3 ?C (97.4 ?F) (Oral) Resp 20 Ht 160 cm (5' 3) Wt 100.6 kg (221 lb 12.5 oz) SpO2 96% BMI 39.29 kg/m? General: No acute distress, Cooperative, following commands Neck: supple Lungs: clear to auscultation bilaterally, no wheezing, rhonchi or rales Heart: RRR Abdomen: Soft, nondistended, Normoactive bowel sounds Extremities: Pulses intact and symmetric. . 1+ edema. Skin: Color, texture, turgor normal Lines, Drains, and Airways Line Central Line Single Lumen 10/25/17 2314 Tunneled Left Chest 10 days Dialysis / Apheresis Double Lumen 10/25/17 2314 Admission to Hospital Left Chest 10 days Peripheral 10/30/17 0745 Left Forearm 6 days Drain Indwelling Urinary Catheter 10/23/17 0520 Assessment Zuniga 13 days Fluid Balance Intake/Output Summary (Last 24 hours) at 11/05/17 1144 Last data filed at 11/05/17 1100 Gross per 24 hour Intake 720 ml Output 3850 ml Net -3130 ml Labs CBC: Recent Labs 11/05/17 0522 11/04/17 2245 11/04/17 1755 11/04/17 1254 11/04/17 0510 11/03/17 2328 11/03/17 1725 11/03/17 1243 10/31/17 1833 WBC 8.54 9.24 8.56 11.64* 11.31* 11.27* 12.30* 12.45* < > 16.61* HB 8.8* 9.1* 9.9* 9.5* 9.4* 9.6* 10.2* 8.3* < > 6.8* HCT 26.8* 27.9* 29.9* 28.5* 28.0* 29.2* 31.1* 25.8* < > 20.9* PLT 23* 27* 28* 29* 34* 33* 33* 44* < > 27* MCV 94.7 94.6 95.2 95.3 94.0 94.5 94.0 97.0 < > 96.3 RDWCV 25.2* 25.0* 25.8* 25.4* 25.3* 25.1* 25.2* 26.5* < > 23.9* NEUTP -- -- -- -- -- -- -- -- -- 95.0 ABSNEUT -- -- -- -- -- -- -- -- -- 15.78* LYMPHP -- -- -- -- -- -- -- -- -- 1.0 MONOP -- -- -- -- -- -- -- -- -- 3.0 EODINP -- -- -- -- -- -- -- -- -- 1.0 < > = values in this interval not displayed. COAG: No results for input(s): APTT, INR in the last 168 hours. BMP: Recent Labs 11/05/1752111/04/17 0511/02/17 2340 11/02/17 0120 11/01/17 0302 10/30/17 2338 10/29/17 2335 GLUC 100* 143* 124* 93 124* 107* 115* NA 135* 133* 132* 134* 132* 131* 132* K 3.0* 3.3* 3.7 3.9 4.0 4.5 4.4 CHLOR 96* 95* 94* 95* 91* 93* 95* CO2 24 25 21* 24 21* 23 25 ANION 15 13 17 15 20* 15 12 BUN 48* 45* 36* 27* 43* 28* 25* CREAT 1.19* 1.24* 1.25* 1.18* 1.89* 1.39* 1.25* CHEM: Recent Labs 11/05/1752111/04/17 0511/02/17 2340 11/02/17 0120 11/01/17 0302 10/30/17 2338 10/29/17 2335 ALB -- -- 3.4* 3.6* 3.5* -- -- TPROT -- -- 6.0* 6.0* 5.7* -- -- CA 8.4* 8.6 8.4* 8.4* 8.1* 9.0 9.3 MG 1.7 1.9 1.8 2.0 1.7 2.0 2.2 HEPATIC: Recent Labs 11/04/17 0510 11/02/17 2340 11/02/170 11/01/17 0302 ALKPHOS -- 79 75 70 ALT -- 32 37 43* AST -- 34 45* 53* TBILI 1.3 1.2 1.6* 1.3 URINALYSIS:No results for input(s): PH, SPGR, UGLUC, UBILI, UKET, UHB, UPROT, UROBIL, UWBC, SSA in the last 168 hours. Invalid input(s): NITR CARDIAC: No results for input(s): CKTEST, CKMB, CKMBP, TROPT, PBNP in the last 168 hours. ? 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 Active Hospital Problems Diagnosis - Retroperitoneal hematoma Retroperitoneal bleed: s/p 7 units PRBCs s/p IR emobolization of left L3 artery at [facility] on 10/23 IR embolization of left L2 and L3 arteries on 10/26 CT abd/pel 10/31: RP bleed stable when compared to previous imaging from 10/27 LDH 1730, haptoglobin <10, Tbili 1.3- concern for hemolysis as well. Per heme, thrombocytopenia and anemia likely related to cytoxan with stressed BM Cytoxan reduced to 75 mg daily Plan: Continue to monitor HANDH and transfuse PRBC if Hb<7 or symptomatic Continue to hold Anticoagulation until approved by Vascular medicine- initially recommended holding AC for at least 14 days since last bleeding. 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 Has received stenting of IVC and iliacs along with endograft of IVC. 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 C/B extensive RP bleed s/p L2, L3 embolization. Plan: Continue Cytoxan 75 mg and prednisone 80 mg with bactrim ppx Appreciate hematology and VM recs Received Apheresis on 11/03, may need more sessions per hematology-following - CAPRICE (acute kidney injury) (HCC) CAPRICE on CKD III, 2/ contrast, now requiring dialysis First HD at [facility] on 10/25 with tunneled dialysis catheter placement followed by [address] Abdomen/pelvis from 10/26 showed occlusion of B/L renal veins, outflow not appreciated- could be attributing to CAPRICE and CKD Bladder scan Plan: Nephrology following- appreciate recommendations Daily BMPs to watch K, Na and phosphorus levels Renal dosing of medication Avoid excess fluids and nephrotoxic drugs - HTN (hypertension) Mildly decreased systolic function, diastolic function indeterminate on 10/13/17 ECHO. 10/28: Run of SBP in 200s overnight (likely d/t pain), given hydralazine however still consistently in 170s-180s 10/29: Still hypertensive, required 4 doses of hydralazine overnight Currently on Amlodipine 10 mg and Coreg 6.25 mg BID Plan: Continue Amlodipine and Coreg at current dosing, can up titrate coreg if tolerating well (HR currently 80-100) Can consider adding PRN hydralazine for SBP>180 mm Hg, - Diffuse pulmonary alveolar hemorrhage Currently stable, no new episodes Has had 6 admissions recently for acute respiratory failure requiring mechanical ventilation Cytoxan was reduced from 150 to 75 mg due to concern for BM toxicity Plan: Continue to monitor respiratory status Continue oxygen therapy at 2L NC Continue Cytoxan 75 mg QD renally dosed Continue Prednisone 80 mg daily with Bactrim PPX - Moraxella catarrhalis pneumonia (HCC) Had respiratory cultures growing Moraxella catarrhalis Received ceftriaxone 4/20-11/03- 7 days therapy WBC trended down from 21 K to 12K. Currently at baseline O2 requirement but still slightly tachypneic Plan: Will consider discontinuing ceftriaxone since she has received 7 day course. Continue to monitor respiratory status closely BPH per RT - Peripheral neuropathy - History of heparin-induced thrombocytopenia Avoid all heparin products. - Weakness of left leg 11/02 Left leg weakness/parasthesia Likely related to lumbar nerve compression from large retroperitoneal hematoma Neurology was following, recommended no further intervention On gabapentin renally dosed. 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 CBC Collected: 11/05/2017 Status: F Source: [place] 5:22 AM [facility] REPOSITORY TYPE CODE TESTS RESULT OUT OF REFERENCE UNITS RANGE LAB WBC 3.70-11.00 k/uL WBC 8.54 LAB RBC 3.90-5.20 m/uL Low RBC 2.83 LAB HGB 11.5-15.5 g/dL Low Hemoglobin 8.8 LAB HCT 36.0-46.0 % Low Hematocrit 26.8 LAB MCV 80.0-100.0 fL MCV 94.7 LAB MCH 26.0-34.0 pG MCH 31.1 LAB MCHC 30.5-36.0 g/dL MCHC 32.8 LAB RDWCV 11.5-15.0 % RDW-CV High 25.2 LAB PLTCT 150-400 k/uL Low Platelet Count 23 Result Comment: Result checked and verified No clot detected. LAB MPV 9.0-12.7 fL MPV <<DO NOT REPORT>> LAB ABSNUC <0.01 k/uL 0.02 High Absolute nRBC Performed By: #### CBC, MG1, PHOS, BMP #### [facility] [address], [place] [id number] MAGNESIUM Collected: 11/05/2017 Status: F Source: [place] 5:22 AM [facility] REPOSITORY TYPE CODE TESTS RESULT OUT OF REFERENCE UNITS RANGE LAB MG 1.7-2.3 mg/dL Magnesium 1.7 Performed By: #### CBC, MG1, PHOS, BMP #### [place] [id number] [place] [address] PHOSPHORUS Collected: 11/05/2017 Status: F Source: [place] 5:22 AM [facility] REPOSITORY TYPE CODE TESTS RESULT OUT OF REFERENCE UNITS RANGE LAB PHOS 2.7-4.8 mg/dL Phosphorus 3.4 Performed By: #### CBC, MG1, PHOS, BMP #### [facility] [address] [place] [id number] BASIC METABOLIC PANL Collected: 11/05/2017 Status: F Source: [place] 5:22 AM [facility] REPOSITORY TYPE CODE TESTS RESULT OUT OF REFERENCE UNITS RANGE LAB GLU 74-99 mg/dL High Glucose 100 Result Comment: The [place] [employer] (ADA) provides guidance for cutoff values for fasting glucose and random glucose. The ADA defines fasting as no caloric intake for at least 8 hours. Fas ting plasma glucose results between 100 to 125 mg/dL indicate increased risk for diabetes (prediabetes). Fasting plasma glucose results greater than or equal to 126 mg/dL meet the criteria for diagnosis of diabetes. In the absence of unequivocal hyperglycemia, results should be confirmed by repeat testing. In a patient with classic symptoms of hyperglycemia or hyperglycemic crisis, random plasma glucose results greater than or equal to 200 mg/dL meet the criteria for diagnosis of diabetes. Reference: Standards of Medical Care in Diabetes 2016, [place] [employer]. Diabetes Care. 2016.39(Suppl 1). LAB BUN 7-21 mg/dL BUN High 48 LAB CRET 0.58-0.96 mg/dL Creatinine High 1.19 LAB NA 136-144 mmol/L Low Sodium 135 LAB K 3.7-5.1 mmol/L Low Potassium 3.0 LAB CL 97-105 mmol/L Low Chloride 96 LAB CO2 22-30 mmol/L CO2 24 LAB AGAP 9-18 mmol/L Anion Gap 15 LAB CA 8.5-10.2 mg/dL Low Calcium, Total 8.4 LAB GFRAA eGFR- Amer. >60 LAB GFRNAA . eGFR-All Other Races 54 Result Comment: eGFR (Estimated GFR) Units of measure: mL/min/1.73 meters squared eGFR is derived from the reexpressed MDRD Study equation using the following parameters: serum creatinine, age, gender and race. The creatinine assay has been calibrated to be traceable to IDMS. An eGFR <60 mL/min/1.73m2 for >3 months is consistent with chronic kidney disease. Refer to KDOQI guidelines for clinical interpretation. In patients with unstable renal function, e.g. those with acute kidney injury, the eGFR may not accurately reflect actual GFR. Performed By: #### CBC, MG1, PHOS, BMP #### [facility] [address] [place], [place] [address] CBC Collected: 11/04/2017 Status: F Source: [place] 10:45 PM [facility] REPOSITORY TYPE CODE TESTS RESULT OUT OF REFERENCE UNITS RANGE LAB WBC 3.70-11.00 k/uL WBC 9.24 LAB RBC 3.90-5.20 m/uL Low RBC 2.95 LAB HGB 11.5-15.5 g/dL Low Hemoglobin 9.1 LAB HCT 36.0-46.0 % Low Hematocrit 27.9 LAB MCV 80.0-100.0 fL MCV 94.6 LAB MCH 26.0-34.0 pG MCH 30.8 LAB MCHC 30.5-36.0 g/dL MCHC 32.6 LAB RDWCV 11.5-15.0 % RDW-CV High 25.0 LAB PLTCT 150-400 k/uL Low Platelet Count 27 Result Comment: Result checked and verified No clot detected. LAB MPV 9.0-12.7 fL MPV <<DO NOT REPORT>> LAB ABSNUC <0.01 k/uL 0.02 High Absolute nRBC Performed By: #### CBC #### [facility] [address] [place], [place] [address] CONSULT PROG Observed: 11/04/2017 Status: COMPLETED Source: [place] 2:30 PM [facility] REPOSITORY HNO ID: [id number] Author: Luz Maria Wolfe Service: Hematology Author Type: Physician Type: Consult Progress Note Filed: 11/04/2017 3:11 PM Note Text: ? [facility] DEPARTMENT OF HEMATOLOGIC ONCOLOGY AND BLOOD DISORDERS ? Hematology Consult Follow Up ? ? Patient name: Paloma Cannon : 1990 Date of Service: 11/04/2017 Supervising attending physician: Dr. Wolfe ? INTERVAL HISTORY: Transferred from MICU to [facility] overnight Complains about severe pain in the back. Oral pain medications are helping. Current hospital medications: HYDROmorphone 0.4 mg injection (DILAUDID) 0.4 mg INTRAVENOUS q 3 H PRN furosemide 100 mg injection (LASIX) 100 mg INTRAVENOUS BID 9a/5p calcium gluconate 3 g in NaCl 0.9% 1,000 mL 3 g INTRAVENOUS APHERESIS albumin (5%) 50 g infusion 1,000 mL INTRAVENOUS APHERESIS sodium citrate 4% 3-6 mL catheter lock 3-6 mL INTRALUMINAL APHERESIS PRN lidocaine 5 % 1 Patch (LIDODERM) 1 Patch TRANSDERMAL DAILY lidocaine patch - REMOVE OTHER AT BEDTIME lidocaine - VERIFY PATCH OTHER q 8 H carvedilol 6.25 mg tab(s) (COREG) 6.25 mg ORAL/FEEDING TUBE BID w MEALS gabapentin 300 mg cap(s) (NEURONTIN) 300 mg ORAL q 12 H cyclophosphamide (CYTOXAN) cap(s) 75 mg 75 mg ORAL DAILY oxyCODONE IR 10 mg tab(s) (ROXICODONE) 10 mg ORAL/FEEDING TUBE q 6 H polyethylene glycol 3350 17 g packet (MIRALAX, GLYCOLAX) 17 g ORAL/FEEDING TUBE DAILY docusate sodium 100 mg cap(s) (COLACE) 100 mg ORAL BID hydrALAZINE 10 mg injection (APRESOLINE) 10 mg INTRAVENOUS q 2 H PRN amLODIPine 10 mg tab(s) (NORVASC) 10 mg ORAL/FEEDING TUBE DAILY senna 8.6 mg tab(s) (SENOKOT) 8.6 mg ORAL/FEEDING TUBE BID pantoprazole DR 40 mg tab(s) (PROTONIX) 40 mg ORAL DAILY (6 AM) ondansetron 8 mg tab(s) (ZOFRAN) 8 mg ORAL q 8 H PRN diphenhydrAMINE 50 mg (BENADRYL) 50 mg ORAL/FEEDING TUBE q 6 H PRN sulfamethoxazole-trimethoprim 400-80 mg 2 tablet (BACTRIM,SEPTRA) 2 tablet ORAL/FEEDING TUBE - predniSONE (DELTASONE) tab(s) 80 mg 80 mg ORAL/FEEDING TUBE DAILY hydrocortisone sodium succinate (PF) 100 mg injection (Solu- CORTEF) 100 mg INTRAVENOUS q 4 H PRN diphenhydrAMINE 50 mg injection (BENADRYL) 50 mg INTRAVENOUS q 4 H PRN prochlorperazine 5 mg injection (COMPAZINE) 5 mg INTRAVENOUS q 6 H PRN 0.9% NaCl 2-10 mL 2-10 mL INTRAVENOUS PRN 0.9% NaCl 3-5 mL 3-5 mL INTRAVENOUS q 12 H dextrose 50% in water 25-50 mL syringe 12.5-25 g INTRAVENOUS PRN dextrose 40 % 15 g 15 g ORAL PRN glucagon 1 mg injection (GLUCAGEN) 1 mg SUBCUTANEOUS PRN acetaminophen 650 mg tab(s) (TYLENOL) 650 mg ORAL/FEEDING TUBE q 6 H PRN acetaminophen 650 mg suppository (TYLENOL) 650 mg RECTAL q 6 H PRN ? PHYSICAL EXAMINATION: General: Alert, NAD.On Nasal canula 02. HEENT: Grossly PERRLA, EOMI, anicteric Heart/CV: Grossly RRR Lungs/Resp/Chest: Normal chest wall movement. Abd: Grossly ND, no HSM, no other masses Extremities/Skin: No rashes appreciated DATA: Labs: Component WBC RBC Hemoglobin Hematocrit MCV MCH MCHC RDW- CV Platelet Count MPV Absolute nRBC Latest Ref Rng AND Units 3.70 - 11.00 k/uL 3.90 - 5.20 m/uL 11.5 - 15.5 g/dL 36.0 - 46.0 % 80.0 - 100.0 fL 26.0 - 34.0 pG 30.5 - 36.0 g/dL 11.5 - 15.0 % 150 - 400 k/uL 9.0 - 12.7 fL <0.01 k/uL 11/02/2017 14.34 (H) 2.58 (L) 8.1 (L) 24.7 (L) 95.7 31.4 32.8 25.3 (H) 35 (L) <<DO NOT REPORT>> 0.11 (H) 11/03/2017 6:35 AM 10.93 2.35 (L) 7.5 (L) 22.4 (L) 95.3 31.9 33.5 25.5 (H) 29 (L) <<DO NOT REPORT>> 0.10 (H) 11/03/2017 12:43 PM 12.45 (H) 2.66 (L) 8.3 (L) 25.8 (L) 97.0 31.2 32.2 26.5 (H) 44 (L) <<DO NOT REPORT>> 0.06 (H) 11/03/2017 5:25 PM 12.30 (H) 3.31 (L) 10.2 (L) 31.1 (L) 94.0 30.8 32.8 25.2 (H) 33 (L) <<DO NOT REPORT>> 0.10 (H) 11/03/2017 11:28 PM 11.27 (H) 3.09 (L) 9.6 (L) 29.2 (L) 94.5 31.1 32.9 25.1 (H) 33 (L) <<DO NOT REPORT>> 0.09 (H) 11/04/2017 11.31 (H) 2.98 (L) 9.4 (L) 28.0 (L) 94.0 31.5 33.6 25.3 (H) 34 (L) <<DO NOT REPORT>> 0.08 (H) Component Latest Ref Rng AND Units 11/04/2017 Bilirubin, Total 0.0 - 1.5 mg/dL 1.3 Bilirubin, Unconjug 0.0 - 1.1 mg/dL 0.9 Bilirubin, Conjug <0.2 mg/dL 0.4 (H) LD 135 - 214 U/L 985 (H) Haptoglobin 31 - 238 mg/dL <10 (L) Degradation Product <10 ug/ml >40 (H) Fib Clot 200 - 400 mg/dL 224 d Dimer <500 ng/mL FEU 6,890 (H) ASSESSMENT/PLAN: 27 y/o female?with PMHx of Triple-positive Anti-phospholipid Syndrome diagnosed in 2013?(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 Recent admission 10/13/17-10/23/17 for hemoptysis and SOB, requiring intubation, was in MICU for management of DAH. Admitted to MICU again for extensive left retroperitoneal hemorrhage s/p IR guided intervention (initially on 10/23 at [facility] and 10/26 here at [facility]. ? # Antiphospholipid antibody syndrome Extensive left retroperitoneal hemorrhage likely secondary to anticoagulant. Its an unfortunate case, she needs an anticoagulation for APS but bleeding episodes prohibit it. On IHD Peripheral smear reviewed with Dr. Keenan- Lot of nucleated RBC's, decreased platelet number. Anisocytosis. Her increased nucleated RBC's suggest stressed marrow given retroperitoneal bleed. She is still has evidence of hemolysis with elevated LDH and low haptoglobin. Received Apheresis on 11/03. No need of apheresis today No transfusion requirements today - Hold off on any anticoagulation for now. - Please transfuse Platelets to keep Plt >30 K. Please check post transfusion CBC 1 hour after transfusion. - continue with Prednisone 80mg PO - Continue with cytoxan to 75 mg (per Nephro recs) - Please Transfuse for Hgb >7 and Plt > 30. ? Hematology team will follow. Pt discussed with Dr. Wolfe ? Juan Christopher MD Fellow, Hematology and Medical Oncology Pager: [phone] Addendum: I have repeated the pertinent features of the history and examination and reviewed appropriate available diagnostics in this patient. I am in agreement with the plan as stated above. I discussed the above plan with the patient and I have answered questions asked by the patient. Pt transferred to [facility] yesterday. 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 Hb has stayed stable since yesterday. Platelets slightly down. LDH has trended down a bit. Urine in zuniga is tea color but she does not appear to have brisk MAHA process. Peripheral smear re-reviewed today which showed occasional schistocyte (not unexpected with dialysis) and decrease in nuc reds, however still showing signs of a stressed bone marrow. Given overall stability of her lab work and clinical status will not make any changes to her care plan today. Pain control is a major issue for her today. Will follow daily. Luz Maria Wolfe MD November 04, 2017 3:10 PM CBC Collected: 11/04/2017 Status: F Source: [place] 12:54 PM [facility] REPOSITORY TYPE CODE TESTS RESULT OUT OF REFERENCE UNITS RANGE LAB WBC 3.70-11.00 k/uL WBC High 11.64 LAB RBC 3.90-5.20 m/uL Low RBC 2.99 LAB HGB 11.5-15.5 g/dL Low Hemoglobin 9.5 LAB HCT 36.0-46.0 % Low Hematocrit 28.5 LAB MCV 80.0-100.0 fL MCV 95.3 LAB MCH 26.0-34.0 pG MCH 31.8 LAB MCHC 30.5-36.0 g/dL MCHC 33.3 LAB RDWCV 11.5-15.0 % RDW-CV High 25.4 LAB PLTCT 150-400 k/uL Low Platelet Count 29 Result Comment: Result checked and verified No clot detected. LAB MPV 9.0-12.7 fL MPV <<DO NOT REPORT>> LAB ABSNUC <0.01 k/uL 0.02 High Absolute nRBC Performed By: #### CBC #### [facility] [address] [place], [place] [address] DEGRAD PRODUCT Collected: 11/04/2017 Status: F Source: [place] 5:10 AM [facility] REPOSITORY TYPE CODE TESTS RESULT OUT OF REFERENCE UNITS RANGE LAB FDP <10 ug/ml High Degrad Product >40 Performed By: #### FDP, DDMER, FIBCT, MG1, PHOS, BMP, HAPTO, BILIFR, LD6, CBC #### [facility] [address] [place], [place] [address] D DIMER Collected: 11/04/2017 Status: F Source: [place] 5:10 AM [facility] REPOSITORY TYPE CODE TESTS RESULT OUT OF REFERENCE UNITS RANGE LAB DDMER <500 ng/mL FEU High D dimer 6890 Result Comment: The D-dimer assay can be used to exclude pulmonary embolism (PE) and deep vein thrombosis (DVT) in conjunction with a low pre-test probability. For patients with a suspected DVT, a D-dimer level below 500 ng/mL FEU has a negative predictive value of 99.2%, a sensitivity of 98.9%, and a specificity of 36.1%. For patients with a suspected PE, a D -dimer level below 500 ng/mL FEU has a negative predictive value of 99.1%, a sensitivity of 97.8%, and a specificity of 41.7%. Sample checked for a clot. Result rechecked. Performed By: #### FDP, DDMER, FIBCT, MG1, PHOS, BMP, HAPTO, BILIFR, LD6, CBC #### [place] [address] FIBRINOGEN Collected: 11/04/2017 Status: F Source: [place] 5:10 AM [facility] REPOSITORY TYPE CODE TESTS RESULT OUT OF REFERENCE UNITS RANGE LAB FIBCT 200-400 mg/dL Fibrinogen 224 Performed By: #### FDP, DDMER, FIBCT, MG1, PHOS, BMP, HAPTO, BILIFR, LD6, CBC #### [place] [address] MAGNESIUM Collected: 11/04/2017 Status: F Source: [place] 5:10 AM [facility] REPOSITORY TYPE CODE TESTS RESULT OUT OF REFERENCE UNITS RANGE LAB MG 1.7-2.3 mg/dL Magnesium 1.9 Performed By: #### FDP, DDMER, FIBCT, MG1, PHOS, BMP, HAPTO, BILIFR, LD6, CBC #### [place] [address] PHOSPHORUS Collected: 11/04/2017 Status: F Source: [place] 5:10 AM [facility] REPOSITORY TYPE CODE TESTS RESULT OUT OF REFERENCE UNITS RANGE LAB PHOS 2.7-4.8 mg/dL Phosphorus 3.2 Performed By: #### FDP, DDMER, FIBCT, MG1, PHOS, BMP, HAPTO, BILIFR, LD6, CBC #### [facility] [address] [place], [place] [address] BASIC METABOLIC PANL Collected: 11/04/2017 Status: F Source: [place] 5:10 AM [facility] REPOSITORY TYPE CODE TESTS RESULT OUT OF REFERENCE UNITS RANGE LAB GLU 74-99 mg/dL High Glucose 143 Result Comment: The [place] [employer] (ADA) provides guidance for cutoff values for fasting glucose and random glucose. The ADA defines fasting as no caloric intake for at least 8 hours. Fas ting plasma glucose results between 100 to 125 mg/dL indicate increased risk for diabetes (prediabetes). Fasting plasma glucose results greater than or equal to 126 mg/dL meet the criteria for diagnosis of diabetes. In the absence of unequivocal hyperglycemia, results should be confirmed by repeat testing. In a patient with classic symptoms of hyperglycemia or hyperglycemic crisis, random plasma glucose results greater than or equal to 200 mg/dL meet the criteria for diagnosis of diabetes. Reference: Standards of Medical Care in Diabetes 2016, [place] [employer]. Diabetes Care. 2016.39(Suppl 1). LAB BUN 7-21 mg/dL BUN High 45 LAB CRET 0.58-0.96 mg/dL Creatinine High 1.24 LAB NA 136-144 mmol/L Low Sodium 133 LAB K 3.7-5.1 mmol/L Low Potassium 3.3 LAB CL 97-105 mmol/L Low Chloride 95 LAB CO2 22-30 mmol/L CO2 25 LAB AGAP 9-18 mmol/L Anion Gap 13 LAB CA 8.5-10.2 mg/dL Calcium, Total 8.6 LAB GFRAA eGFR- Amer. >60 LAB GFRNAA . eGFR-All Other Races 52 Result Comment: eGFR (Estimated GFR) Units of measure: mL/min/1.73 meters squared eGFR is derived from the reexpressed MDRD Study equation using the following parameters: serum creatinine, age, gender and race. The creatinine assay has been calibrated to be traceable to IDMS. An eGFR <60 mL/min/1.73m2 for >3 months is consistent with chronic kidney disease. Refer to KDOQI guidelines for clinical interpretation. In patients with unstable renal function, e.g. those with acute kidney injury, the eGFR may not accurately reflect actual GFR. Performed By: #### FDP, DDMER, FIBCT, MG1, PHOS, BMP, HAPTO, BILIFR, LD6, CBC #### [facility] [address], [place] [address] HAPTOGLOBIN Collected: 11/04/2017 Status: F Source: [place] 5:10 AM [facility] REPOSITORY TYPE CODE TESTS RESULT OUT OF REFERENCE UNITS RANGE LAB HAPTO 31-238 mg/dL Low Haptoglobin <10 Performed By: #### FDP, DDMER, FIBCT, MG1, PHOS, BMP, HAPTO, BILIFR, LD6, CBC #### [place] [id number] [place], [place] [address] BILIRUBIN,FRACTION Collected: Status: F Source: [place] 11/04/2017 5:10 AM [facility] REPOSITORY TYPE CODE TESTS RESULT OUT OF REFERENCE UNITS RANGE LAB TBILI 0.0-1.5 mg/dL 1.3 Bilirubin, Total LAB BILU 0.0-1.1 mg/dL 0.9 Bilirubin,Un conjug LAB CBIL <0.2 mg/dL High 0.4 Bilirubin,Co njugated Performed By: #### FDP, DDMER, FIBCT, MG1, PHOS, BMP, HAPTO, BILIFR, LD6, CBC #### [place] [address] [place], [place] [address] LD Collected: 11/04/2017 Status: F Source: [facility] 5:10 AM [facility] REPOSITORY TYPE CODE TESTS RESULT OUT OF RANGE REFERENCE UNITS LAB LD 135-214 U/L High LD 985 Performed By: #### FDP, DDMER, FIBCT, MG1, PHOS, BMP, HAPTO, BILIFR, LD6, CBC #### [place] [id number] [place], [place] [address] CBC Collected: 11/04/2017 Status: F Source: [place] 5:10 AM [facility] REPOSITORY TYPE CODE TESTS RESULT OUT OF REFERENCE UNITS RANGE LAB WBC 3.70-11.00 k/uL WBC High 11.31 LAB RBC 3.90-5.20 m/uL Low RBC 2.98 LAB HGB 11.5-15.5 g/dL Low Hemoglobin 9.4 LAB HCT 36.0-46.0 % Low Hematocrit 28.0 LAB MCV 80.0-100.0 fL MCV 94.0 LAB MCH 26.0-34.0 pG MCH 31.5 LAB MCHC 30.5-36.0 g/dL MCHC 33.6 LAB RDWCV 11.5-15.0 % RDW-CV High 25.3 LAB PLTCT 150-400 k/uL Low Platelet Count 34 Result Comment: Result checked and verified No clot detected. LAB MPV 9.0-12.7 fL MPV <<DO NOT REPORT>> LAB ABSNUC <0.01 k/uL 0.08 High Absolute nRBC Performed By: #### FDP, DDMER, FIBCT, MG1, PHOS, BMP, HAPTO, BILIFR, LD6, CBC #### [facility] [address], [place] [address] TYPE AND SCREEN Collected: 11/04/2017 Status: F Source: [place] 5:10 AM [facility] REPOSITORY TYPE CODE TESTS RESULT OUT OF REFERENCE UNITS RANGE LAB %ABR B ABO/RH(D) POSITIVE LAB % Antibody POS Screen Performed By: #### TSCR #### [facility] [address], [place] [address] PROGRESS Observed: 11/04/2017 Status: COMPLETED Source: [place] 4:22 AM [facility] REPOSITORY HNO ID: [id number] Author: Downtime Note Service: (none) Author Type: (none) Type: Progress Notes Filed: 11/04/2017 4:26 AM Note Text: Epic Scheduled Downtime: 11/03/2017 11:34:32 PM to 11/04/2017 4:17:42 AM CBC Collected: 11/03/2017 Status: F Source: [place] 11:28 PM [facility] REPOSITORY TYPE CODE TESTS RESULT OUT OF REFERENCE UNITS RANGE LAB WBC 3.70-11.00 k/uL WBC High 11.27 LAB RBC 3.90-5.20 m/uL Low RBC 3.09 LAB HGB 11.5-15.5 g/dL Low Hemoglobin 9.6 LAB HCT 36.0-46.0 % Low Hematocrit 29.2 LAB MCV 80.0-100.0 fL MCV 94.5 LAB MCH 26.0-34.0 pG MCH 31.1 LAB MCHC 30.5-36.0 g/dL MCHC 32.9 LAB RDWCV 11.5-15.0 % RDW-CV High 25.1 LAB PLTCT 150-400 k/uL Low Platelet Count 33 Result Comment: Result checked and verified No clot detected. LAB MPV 9.0-12.7 fL MPV <<DO NOT REPORT>> LAB ABSNUC <0.01 k/uL 0.09 High Absolute nRBC Performed By: #### CBC #### [facility] [address] [id number] NURSING PROG Observed: 11/03/2017 Status: COMPLETED Source: [place] 10:30 PM [facility] REPOSITORY HNO ID: [id number] Author: Duane SanchezRn) JEFF Enriquez Service: (none) Author Type: Registered Nurse Type: Nursing Progress Note Filed: 11/04/2017 4:59 AM Note Text: 0.4 mg Dilaudid wasted with Jose Gaines RN. NURSING PROG Observed: 11/03/2017 Status: COMPLETED Source: [place] 9:48 PM [facility] REPOSITORY HNO ID: [id number] Author: Maritza SanchezRn) JEFF Figueroa Service: (none) Author Type: Registered Nurse Type: Nursing Progress Note Filed: 11/03/2017 9:48 PM Note Text: Nursing Progress Note Patient Name: Paloma Cannon Patient Location: [facility] 015/H080-16 Transfer Note: Patient transferred into room/unit h80-16 in stable condition. Actions taken: No futher actions taken at this time. Will continue to monitor and check with patient. This note was completed by: TAMI Moise PLAN OF CARE Observed: 11/03/2017 Status: COMPLETED Source: [place] 7:45 PM [facility] REPOSITORY HNO ID: [id number] Author: Daysi Kohli Service: Critical Care Author Type: Resident Type: Plan of Care Filed: 11/03/2017 7:46 PM Note Text: MICU patient transfer to [facility]. Patient signed out to [facility] night team. Patient to go to [facility]-. Daysi Kohli, DO HISTORY PHYSICAL Observed: 11/03/2017 Status: COMPLETED Source: [place] 7:27 PM [facility] REPOSITORY HNO ID: [id number] Author: Adin Goldsmith Service: General Internal Medicine Author Type: Resident Type: HANDP Filed: 11/03/2017 10:45 PM Note Text: Attestation signed by Krsyta Lopez at 11/04/2017 5:[address] FRED STONE, SR. 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 PLAN: Will increased pain meds to get better control of LLE pain. H/H stable, LDH slowly downtrending, haptoglobin still not dectable. Will t/b with Hematology about further apheresis needs and nephrology regarding ultrafiltration as pt is still volume overloaded. Continue to hold AC given recent RP bleed although pt has known increased risk of thrombosis given hx of CAPS. I have reviewed the documentation above obtained and documented by the Resident and have reviewed and updated the problem list as appropriate. I have personally performed a face to face assessment of the patient and I have discussed the case and management of the patient's care. Counseling (Inpatient): I personally spent 30 total minutes involved in the care of this patient. Greater than 50% of the time was spent counseling and/or coordinating care for the patient, the nature of which is noted above. STAFF PHYSICIAN:: Krysta Lopez MD DATE of SERVICE: 11/04/2017 TIME of SERVICE: 4:53 PM DEPARTMENT OF HOSPITAL MEDICINE TRANSFER OF CARE NOTE NIGHT PATIENT GOING TO [facility] PATIENT NAME: Paloma Cannon LENGTH OF STAY: 9 [address]; AGE: 7 1990; 27 year old ADMITTING PHYSICIAN: Austen Choudhury DATE OF ADMISSION: 10/25/2017 11:13 PM SERVICE - [place] [facility] SUBJECTIVE PCP: PEYTON ROGERS MD CC: RP Bleed HPI: Paloma Cannon is a 27 year old FEMALE with PMHx significant for: - Catastrophic APLA syndrome (triple positive-two positive serum IgG aPL antibodies along with one positive functional plasma lupus anticoagulant (LAC) test result) c/b extensive VTE (DVT/PE) and IVC clotting extending into renal veins s/p extensive percutaneous thrombectomy followed by endograft of IVC, b/l iliac venous stents on Anticoagulation for lifetime, gets plasmapharesis q2 weekly. 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 During her hospitalization, she had c/o left foot numbness and pain that was managed conservatively. (She was on fondaparinaux while hospitalized and coumadin was held) On 10/23, she presented to [facility] with stabbing left sided abdominal and back pain radiating to both left arm and legs. A CT abdomen was done which showed an extensive Left retroperitoneal hemorrhage with mass effect on the left kidney, with hemorrhage along the mesentery and spleen. She was admitted to [place] ICU as ICU was full and was found to have a Hb of 4.8. She received 7 U PRBC total over three days and IR was consulted who did an urgent L retroperitoneal angiogram which demonstrated multiple foci of bleeding of the Left L3 artery. She underwent embolization with gelfoam and coils w/ incidental finding of large lower extremity fistula, per vasc surgery surgically created. She was found to be volume overload and was treated with lasix and demedex. Ultimately underwent dialysis to remove volume on 10/25. She was then transferred to [facility] MICU on bed availability for further care. On admission her Hb was 6.6, WBC-21K and Plt-44K. Mild transaminitis (AST/ALT-63/95), S.Cr-2.84 (baseline 1.22), Hyponatremia of 125 and hyperkalemia of 5.4. She was seen by Vascular medicine who recommended holding anticoagulation at least 14 days after bleeding had stopped and avoid heparin products due to HIT. She continued to drop HANDH therefore underwent repeat Lumbar angiogram which revealed no active extravasation but due to drop in Hb, L2 and L3 vertebral arteries were embolized with gelfoam slurry and coils. In total she received 9 U PRBC and 6 U platelets during her MICU stay here on top of 7 U PRBC in [place]. Hematology was also consulted who recommended on continuing cytoxan at 150 mg daily with increasing prednisone to 80 mg daily. However, she had anemia with thrombocytopenia and there was some concern for Bone marrow toxicity, so a peripheral smear was done which showed immature RBCs thought to be due to stressed BM response. Cyclophosphamide dosing was reduced to 75 mg. She underwent Apharesis on 11/03 (yesterday) and hematology is following for further needs for apharesis She was also started on ceftriaxone for Pneumonia as her respiratory cultures were growing Moraxella catarrhalis. Her Leucocytosis continued to improve, currently at 12K. She received Ceftriaxone 2g from 10/27--11/03 Her pain was being controlled with dilaudid WAITER/WAITRESS [employer]IN CLASS, now changed to iv dilaudid with PO oxycodone. She was also hypertensive and is on Amlodipine 10 mg and coreg 6.25 mg BID. On arrival to the floor, her Hb was 10K, Plt-33K, WBC-12 K Still c/o of a lot of pain in LLE with numbness, was on WAITER/WAITRESS [employer]IN CLASS dilaudid until this AM. Endorses cough with luis colored expectorant, improved since admission/ No fever or chills Review of Systems PAIN ASSESSMENT: See HPI GENERAL: No weight loss, malaise or fevers HEENT: Negative for frequent or significant headaches, No changes in hearing or vision, no nose bleeds or other nasal problems NECK: Negative for lumps, goiter, pain and significant neck swelling RESPIRATORY: See HPI CARDIOVASCULAR: Negative for chest pain, leg swelling, hypertension, CHF or palpitations GI: No nausea, vomiting, or diarrhea MUSCULOSKELETAL: See HPI SKIN: Negative for lesions, rash, and itching Past Medical History PAST MEDICAL HISTORY Diagnosis Date - (HFpEF) heart failure with preserved ejection fraction (HCC) 02/20/2016 HFpEF w last EF 50-55% On Torsemide, coreg, hydralazine and imdur at home No signs of acute exacerbation on admission Plan: -Continue home medications - Anasarca 11/29/2013 - Anemia 03/10/2015 Chronic microcytic anemia. 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 Thrombosis, and Diffuse Alveolar Hemorrhage. On Warfarin and PLEX (Twice Weekly)? Plan: -Warfarin 5mg qday-holding for planned EGD on 01/11 d/t supra therapeutic INR -Cont. PO Prednisone 10mg MWFS and 5mg TTS -Pantoprazole for GI PPx of Above -Apharesis was supposed to be yesterday, will contact plasmapheresis team on recommendations - Antiphospholipid syndrome (HCC) - Catastrophic Antiphospholipid antibody syndrome 11/09/2013 - Cholelithiasis 01/11/2017 Likely cause of recent pancreatitis. Plan: Per general surgery, no acute surgical intervention at this time. Will await results of EGD. If active gastritis, favor outpatient cholecystectomy. If no active gastritis on EGD, plan for cholecystectomy this admission. - CKD (chronic kidney disease) stage 3, GFR 30-59 ml/min 07/06/2016 Baseline SCr 1.5-1.7 Plan: -renally dose medications -avoid nephrotoxic agents - DVT (deep venous thrombosis) (HCC) - Elevated CA-125 11/30/2013 244 - Essential hypertension 10/08/2015 Stable on home medications Plan: -continue to monitor on home meds - 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 Bivalirudin to Warfarin bridging - HIT (heparin-induced thrombocytopenia) (HCC) - Nontoxic multinodular goiter - Obese - Obesity, Class III, BMI >= 40 (morbid obesity) E66.01 10/18/2016 - Peripheral neuropathy 04/14/2016 - Pulmonary HTN 04/03/2017 - Severe protein-calorie malnutrition (HCC) 12/29/2015 Past Surgical History PAST SURGICAL HISTORY Procedure Laterality Date - PAST SURGICAL HISTORY OF 2012 IVC thrombectomy - PAST SURGICAL HISTORY OF 2013 b/l iliac v. 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 - PAST SURGICAL HISTORY OF Adenoidectomy - PICC LINE INSERT/CONSULT 11/29/2013 - PICC LINE INSERT/CONSULT 03/10/2015 - PICC LINE INSERT/CONSULT 02/20/2016 Prior to Admission Medications cyclophosphamide (CYTOXAN) 50 mg capsule Take 150 mg by mouth once daily. diphenhydrAMINE (BENADRYL) 50 mg capsule Take 1 capsule by mouth every 6 hours as needed for Itching/Rash. gabapentin (NEURONTIN) 100 mg capsule Take 1 capsule by mouth three times daily for 7 days. ondansetron (ZOFRAN, HYDROCHLORIDE,) 8 mg tablet Take 8 mg by mouth every 8 hours as needed for Nausea/Vomiting. pantoprazole DR (PROTONIX) 40 mg tablet Take 40 mg by mouth daily at bedtime. sulfamethoxazole-trimethoprim (BACTRIM DS) 800-160 mg per tablet Take 1 tablet by mouth every Monday,Monday,Monday. fluticasone (FLONASE) 50 mcg/actuation nasal spray Use 1-2 Sprays in each nostril once daily as needed for Cold/Allergy Symptoms (starting in allergy season). senna 8.6 mg tab Take 1 tablet by mouth twice daily as needed. 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 General: No acute distress, AANDOx3, cushingoid features with emaciated UE, Abdominal swelling and aranda like facies Neck: supple, no LAD, no JVD Eyes: PERRLA, EOMI Lungs: b/l coarse breath sounds with rhonchi and crackles diffusely Heart: RRR, normal S1 and S2, no murmurs, rubs or gallops Abdomen: Soft, non-tender, non-distended. Bowel sounds normal. No ascites. No masses or hepatosplenomegaly. Extremities:Chronic edematous changes b/l LE. Emaciated b/l UE. Numbness in LLE Skin: Color, texture, turgor normal, no suspicious rashes or lesions. Neuro: No focal neurological deficits. Sensation intact bilaterally. Strength grossly intact. Labs and Imaging Most recent labs and imaging results. CBC: Recent Labs 11/03/17 1725 11/03/17 1243 11/03/17 0635 11/02/17 2340 11/02/17 1825 11/02/17 1145 11/02/17 0620 11/02/17 0120 10/31/17 1833 WBC 12.30* 12.45* 10.93 14.34* 12.84* 13.34* 12.38* 13.63* < > 16.61* HB 10.2* 8.3* 7.5* 8.1* 8.1* 7.8* 7.2* 7.7* < > 6.8* HCT 31.1* 25.8* 22.4* 24.7* 24.6* 23.8* 22.7* 23.0* < > 20.9* PLT 33* 44* 29* 35* 16* 30* 38* 37* < > 27* MCV 94.0 97.0 95.3 95.7 95.3 95.2 95.8 93.5 < > 96.3 RDWCV 25.2* 26.5* 25.5* 25.3* 24.9* 25.1* 24.6* 24.4* < > 23.9* NEUTP -- -- -- -- -- -- -- -- -- 95.0 ABSNEUT -- -- -- -- -- -- -- -- -- 15.78* LYMPHP -- -- -- -- -- -- -- -- -- 1.0 MONOP -- -- -- -- -- -- -- -- -- 3.0 EODINP -- -- -- -- -- -- -- -- -- 1.0 < > = values in this interval not displayed. COAG: No results for input(s): APTT, INR in the last 168 hours. BMP: Recent Labs 11/02/17 2340 11/02/17 0120 11/01/17 0302 10/30/17 2338 10/29/17 2335 10/28/17 2352 10/28/17 0401 GLUC 124* 93 124* 107* 115* 91 92 NA 132* 134* 132* 131* 132* 133* 131* K 3.7 3.9 4.0 4.5 4.4 4.6 4.9 CHLOR 94* 95* 91* 93* 95* 93* 91* CO2 21* 24 21* 23 25 24 28 ANION 17 15 20* 15 12 16 12 BUN 36* 27* 43* 28* 25* 26* 33* CREAT 1.25* 1.18* 1.89* 1.39* 1.25* 1.31* 1.67* CHEM: Recent Labs 11/02/17 2340 11/02/17 0120 11/01/17 0302 10/30/17 2338 10/29/17 2335 10/28/17 2352 10/28/17 0401 ALB 3.4* 3.6* 3.5* -- -- -- -- TPROT 6.0* 6.0* 5.7* -- -- -- -- CA 8.4* 8.4* 8.1* 9.0 9.3 8.7 8.6 MG 1.8 2.0 1.7 2.0 2.2 1.9 2.0 HEPATIC: Recent Labs 11/02/17 2340 11/02/17 0120 11/01/17 0302 ALKPHOS 79 75 70 ALT 32 37 43* AST 34 45* 53* TBILI 1.2 1.6* 1.3 Imaging: CT ABD/PEL WO CONTRAST 10/31/17: GROSSLY STABLE SIZE OF THE LARGE LEFT RETROPERITONEAL HEMATOMA. ? ?SOME NEW AREAS OF DECREASED ATTENUATION SUGGEST INTERVAL MATURATION/EVOLUTION. MILD PERSISTENT NEPHROGRAMS BILATERALLY DUE TO EITHER RENAL VEIN THROMBOSIS AND/OR RENAL DYSFUNCTION. UNCHANGED SUBCUTANEOUS EDEMA, LARGE COLLATERALS, TRACE ASCITES, AND MILD MESENTERIC STRANDING, ALL OF WHICH IS LIKELY SECONDARY TO KNOWN CHRONIC CENTRAL VENOUS THROMBOSIS. INTERVAL IMPROVEMENT IN THE BIBASILAR LUNG OPACITIES SEEN PREVIOUSLY, WITH PERSISTENT NONSPECIFIC DIFFUSE GROUNDGLASS ATTENUATION, PROBABLY EDEMA. IR AGIOGRAM: 10/26/2017 LEFT L1, L2 AND L3 LUMBAR COUNT VENOGRAPHY DEMONSTRATES NO ACTIVE EXTRAVASATION. ?HOWEVER GIVEN THE RECENT BLEEDING FROM LEFT L3 AND RECENT FINDING OF SUSPICIOUS ACTIVE BLEEDING IN THE REGION OF LEFT L2 ON CT ANGIOGRAPHY, DECISION WAS MADE TO PROCEED WITH EMPIRIC EMBOLIZATION OF LEFT L2 AND ADDITIONAL EMBOLIZATION OF LEFT L3 DESCRIBED ABOVE. LEG DVT US 11/02/17: RIGHT SIDE - DEEP VEINS Technically limited study. Negative for acute deep vein thrombosis in vessels visualized. Normal color and pulsed Doppler signals noted; however, unable to compress the distal external iliac vein and common femoral vein due to body habitus and edema. Chronic deep vein thrombosis in the common femoral vein. Color and pulsed Doppler signals noted; however, unable to compress the femoral vein at mid due to body habitus and edema. Unable to visualize the femoral vein at distal. Unable to visualize the popliteal vein and posterior tibial veins. Only segments visualized of the femoral vein and peroneal veins. Retrograde and arterialized flow noted in external iliac vein, common femoral vein ?and proximal to mid femoral vein. Multiple collateral flow noted in groin area. Findings suggest of more proximal occlusion; may wish other means of evaluation. ? RIGHT SIDE - SUPERFICIAL VEINS Unable to visualize the small saphenous vein. Only segments visualized of the great saphenous vein. ? LEFT SIDE - DEEP VEINS Technically limited study. Negative for acute deep vein thrombosis in vessels visualized. Normal color and pulsed Doppler signals noted; however, unable to compress the distal external iliac vein and common femoral vein due to bandages, body habitus and edema. Chronic deep vein thrombosis in the common femoral vein. Unable to visualize the femoral vein from mid to distal. Only segments visualized of the femoral vein, popliteal vein, posterior tibial veins and peroneal veins. Known arteriovenous fistula noted appears communicate between common femoral vein and common femoral artery. Turbulent flow noted in external iliac vein and common femoral vein likely due to arteriovenous fistula. Retrograde noted in common femoral vein;finding suggest mor proximal occlusion. May wish other means of evaluation. Current Medication Reviewed: Current hospital medications: calcium gluconate 3 g in NaCl 0.9% 1,000 mL 3 g INTRAVENOUS APHERESIS albumin (5%) 50 g infusion 1,000 mL INTRAVENOUS APHERESIS sodium citrate 4% 3-6 mL catheter lock 3-6 mL INTRALUMINAL APHERESIS PRN lidocaine 5 % 1 Patch (LIDODERM) 1 Patch TRANSDERMAL DAILY lidocaine patch - REMOVE OTHER AT BEDTIME lidocaine - VERIFY PATCH OTHER q 8 H carvedilol 6.25 mg tab(s) (COREG) 6.25 mg ORAL/FEEDING TUBE BID w MEALS HYDROmorphone 0.1 mg injection (DILAUDID) 0.1 mg INTRAVENOUS q 4 H PRN HYDROmorphone 0.2 mg injection (DILAUDID) 0.2 mg INTRAVENOUS q 6 H PRN gabapentin 300 mg cap(s) (NEURONTIN) 300 mg ORAL q 12 H cyclophosphamide (CYTOXAN) cap(s) 75 mg 75 mg ORAL DAILY oxyCODONE IR 10 mg tab(s) (ROXICODONE) 10 mg ORAL/FEEDING TUBE q 6 H polyethylene glycol 3350 17 g packet (MIRALAX, GLYCOLAX) 17 g ORAL/FEEDING TUBE DAILY docusate sodium 100 mg cap(s) (COLACE) 100 mg ORAL BID hydrALAZINE 10 mg injection (APRESOLINE) 10 mg INTRAVENOUS q 2 H PRN amLODIPine 10 mg tab(s) (NORVASC) 10 mg ORAL/FEEDING TUBE DAILY senna 8.6 mg tab(s) (SENOKOT) 8.6 mg ORAL/FEEDING TUBE BID pantoprazole DR 40 mg tab(s) (PROTONIX) 40 mg ORAL DAILY (6 AM) ondansetron 8 mg tab(s) (ZOFRAN) 8 mg ORAL q 8 H PRN diphenhydrAMINE 50 mg (BENADRYL) 50 mg ORAL/FEEDING TUBE q 6 H PRN sulfamethoxazole-trimethoprim 400-80 mg 2 tablet (BACTRIM,SEPTRA) 2 tablet ORAL/FEEDING TUBE - predniSONE (DELTASONE) tab(s) 80 mg 80 mg ORAL/FEEDING TUBE DAILY hydrocortisone sodium succinate (PF) 100 mg injection (Solu- CORTEF) 100 mg INTRAVENOUS q 4 H PRN diphenhydrAMINE 50 mg injection (BENADRYL) 50 mg INTRAVENOUS q 4 H PRN prochlorperazine 5 mg injection (COMPAZINE) 5 mg INTRAVENOUS q 6 H PRN 0.9% NaCl 2-10 mL 2-10 mL INTRAVENOUS PRN 0.9% NaCl 3-5 mL 3-5 mL INTRAVENOUS q 12 H dextrose 50% in water 25-50 mL syringe 12.5-25 g INTRAVENOUS PRN dextrose 40 % 15 g 15 g ORAL PRN glucagon 1 mg injection (GLUCAGEN) 1 mg SUBCUTANEOUS PRN acetaminophen 650 mg tab(s) (TYLENOL) 650 mg ORAL/FEEDING TUBE q 6 H PRN acetaminophen 650 mg suppository (TYLENOL) 650 mg RECTAL q 6 H PRN ASSESSMENT AND PLAN 27 year old female with a PMHx for Anti-phospholipid syndrome c/b DVT/PE requiring extensive percutaneous thrombectomy of her IVC and lower extremity veins followed by b/l iliac venous stents and endograft into her IVC, on long-term anti-coagulation (recently changed to fondaparinux from coumadin on 10/13 admission) and IVC, plasmapheresis q2 weeks, prednisone 5mg daily (home), DAH - on cyclophosphamide and prednisone, has had 6 episodes of respiratory decline since 2013, last admission for hemoptysis on 10/13/17, on 2 L at night and with exertion, HIT, CKD 3, 2/2 renal vein thrombosis and contrast-induced nephropathy, HFpEF, HTN, Peripheral neuropathy, post-thrombotic syndrome, and was transferred from [place] for ongoing L RP bleeding s/p L2,L3 embolization X2, 16 U PRBC total, undergoing dialysis due to volume overload and had 1 session of Apharesis per hematology. She was also found to have Moraxella catarrhalis pneumonia and was treated with Ceftriaxone 10/27-11/03 (completed 7 day course). Major Interval Events: 10/26: Transferred from [facility]. Hgb down to 5.5. CTA showing active extravasation, IR embolization of left L2, L3 arteries, Dialysed prior to transfer 10/27: Hgb 6.6, continued to transfuse PRBCs, acute onset right groin pain 10/28: Hgb 6.5, additional PRBCs given, Hgb stable 7.5 after transfusion 10/29: Hgb 6.9, plt 18, transfused 1U pRBCs and 1U plts 10/30: Hgb 7.2, HDS 10/31: Hgb 6, plt 15, transfused 1U PRBCs and 1U plts 11/01: required 1U PRBCs and 1U plts overnight, repeat CBC: Hgb 7.2, plt 32, underwent dialysis 11/02: No acute events overnight. Plts >30, received IHD yesterday, SCr improving, noted to have loss of sensation in left lower extremity. 11/03: Transfused 1 U Plts, recheck 35, now down to 29. Underwent IHD, plasma apheresis, more movement in LLE, remains hypertensive, amlodipine 10 and Coreg 6.25 BID Active Hospital Problems Diagnosis - Retroperitoneal hematoma Retroperitoneal bleed: s/p 7 units PRBCs s/p IR emobolization of left L3 artery at [facility] on 10/23 IR embolization of left L2 and L3 arteries on 10/26 CT abd/pel 10/31: RP bleed stable when compared to previous imaging from 10/27 LDH 1730, haptoglobin <10, Tbili 1.3- concern for hemolysis as well. Per heme, thrombocytopenia and anemia likely related to cytoxan with stressed BM Cytoxan reduced to 75 mg daily Plan: Continue to monitor HANDH and transfuse PRBC if Hb<7 or symptomatic Continue to hold Anticoagulation until approved by Vascular medicine- initially recommended holding AC for at least 14 days since last bleeding. 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 Has received stenting of IVC and iliacs along with endograft of IVC. 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 C/B extensive RP bleed s/p L2, L3 embolization. Plan: Continue Cytoxan 75 mg and prednisone 80 mg with bactrim ppx Appreciate hematology and recs Received Apheresis on 11/03, may need more sessions per hematology-following - CAPRICE (acute kidney injury) ([facility]) CAPRICE on CKD III, 2/ contrast, now requiring dialysis First HD at [facility] on 10/25 with tunneled dialysis catheter placement followed by [address] Abdomen/pelvis from 10/26 showed occlusion of B/L renal veins, outflow not appreciated- could be attributing to CAPRICE and CKD Bladder scan Plan: Nephrology following- appreciate recommendations Daily BMPs to watch K, Na and phosphorus levels Renal dosing of medication Avoid excess fluids and nephrotoxic drugs - HTN (hypertension) Mildly decreased systolic function, diastolic function indeterminate on 10/13/17 ECHO. 10/28: Run of SBP in 200s overnight (likely d/t pain), given hydralazine however still consistently in 170s-180s 10/29: Still hypertensive, required 4 doses of hydralazine overnight Currently on Amlodipine 10 mg and Coreg 6.25 mg BID Plan: Continue Amlodipine and Coreg at current dosing, can up titrate coreg if tolerating well (HR currently 80-100) Can consider adding PRN hydralazine for SBP>180 mm Hg, - Diffuse pulmonary alveolar hemorrhage Currently stable, no new episodes Has had 6 admissions recently for acute respiratory failure requiring mechanical ventilation Cytoxan was reduced from 150 to 75 mg due to concern for BM toxicity Plan: Continue to monitor respiratory status Continue oxygen therapy at 2L NC Continue Cytoxan 75 mg QD renally dosed Continue Prednisone 80 mg daily with Bactrim PPX - Moraxella catarrhalis pneumonia (HCC) Had respiratory cultures growing Moraxella catarrhalis Received ceftriaxone 10/27-11/03- 7 days therapy WBC trended down from 21 K to 12K. Currently at baseline O2 requirement but still slightly tachypneic Plan: Will consider discontinuing ceftriaxone since she has received 7 day course. Continue to monitor respiratory status closely BPH per RT - Peripheral neuropathy - History of heparin-induced thrombocytopenia Avoid all heparin products. - Weakness of left leg 11/02 Left leg weakness/parasthesia Likely related to lumbar nerve compression from large retroperitoneal hematoma Neurology was following, recommended no further intervention On gabapentin renally dosed. - Right groin pain 10/27: C/o acute pain this morning, access site for embolization at [facility], no erythema or induration appreciated on exam, exquisitely TTP Groin study showed no signs of PSA, known AV fistula visualized with retrograde flow, vascular med aware- no further recs 10/28: pain less severe, no physical exam findings Repeat Leg DVT shows no pseudoaneurysm Likely due to nerve compression/RP hematoma causing compressive symtpoms Plan: Pain management-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 WAITER/[employer] CLASS today Wean of dilaudid slowly, currently kept her on Dilaudid 0.2 mg q6h PRN for breakthrough pain and oxycodone 10 mg q6h PRN for moderate to severe pain. Diet: Heart healthy GI PPx: On protonix DR 40 mg VTE PPx: AC on hold Dispo: To be decided Code status: Full Code SIGNATURE: Adin Goldsmith MD PATIENT NAME: Paloma Cannon DATE: November 03, 2017 TIME: 7:30 PM PAGER/CONTACT #: [phone] These recommendations are not final until staffed by attending provider. CBC Collected: 11/03/2017 Status: F Source: [place] 5:25 PM [facility] REPOSITORY TYPE CODE TESTS RESULT OUT OF REFERENCE UNITS RANGE LAB WBC 3.70-11.00 k/uL WBC High 12.30 LAB RBC 3.90-5.20 m/uL Low RBC 3.31 LAB HGB 11.5-15.5 g/dL Low Hemoglobin 10.2 LAB HCT 36.0-46.0 % Low Hematocrit 31.1 LAB MCV 80.0-100.0 fL MCV 94.0 LAB MCH 26.0-34.0 pG MCH 30.8 LAB MCHC 30.5-36.0 g/dL MCHC 32.8 LAB RDWCV 11.5-15.0 % RDW-CV High 25.2 LAB PLTCT 150-400 k/uL Low Platelet Count 33 Result Comment: Result checked and verified No clot detected. LAB MPV 9.0-12.7 fL MPV <<DO NOT REPORT>> LAB ABSNUC <0.01 k/uL 0.10 High Absolute nRBC Performed By: #### CBC #### [facility] [address] [place], [place] [address] CONSULT PROG Observed: 11/03/2017 Status: COMPLETED Source: [place] 4:06 PM [facility] REPOSITORY HNO ID: [id number] Author: Luz Maria Shukla) Aiden Service: Hematology Author Type: Physician Type: Consult Progress Note Filed: 11/03/2017 5:14 PM Note Text: ? [facility] DEPARTMENT OF HEMATOLOGIC ONCOLOGY AND BLOOD DISORDERS ? Hematology Consult Follow Up ? ? Patient name: Paloma Cannon : 1990 Date of Service: 11/03/2017 Supervising attending physician: Dr. Wolfe ? INTERVAL HISTORY: Received 1 U of platelets and 1 U of PRBC this morning Had apheresis Doing better this morning. No complaints Received another unit of platelets and PRBC after apheresis Current hospital medications: sodium citrate 4% 3-6 mL catheter lock 3-6 mL INTRALUMINAL APHERESIS PRN lidocaine 5 % 1 Patch (LIDODERM) 1 Patch TRANSDERMAL DAILY lidocaine patch - REMOVE OTHER AT BEDTIME lidocaine - VERIFY PATCH OTHER q 8 H carvedilol 6.25 mg tab(s) (COREG) 6.25 mg ORAL/FEEDING TUBE BID w MEALS HYDROmorphone 0.1 mg injection (DILAUDID) 0.1 mg INTRAVENOUS q 4 H PRN gabapentin 300 mg cap(s) (NEURONTIN) 300 mg ORAL q 12 H cyclophosphamide (CYTOXAN) cap(s) 75 mg 75 mg ORAL DAILY oxyCODONE IR 10 mg tab(s) (ROXICODONE) 10 mg ORAL/FEEDING TUBE q 6 H polyethylene glycol 3350 17 g packet (MIRALAX, GLYCOLAX) 17 g ORAL/FEEDING TUBE DAILY docusate sodium 100 mg cap(s) (COLACE) 100 mg ORAL BID hydrALAZINE 10 mg injection (APRESOLINE) 10 mg INTRAVENOUS q 2 H PRN amLODIPine 10 mg tab(s) (NORVASC) 10 mg ORAL/FEEDING TUBE DAILY senna 8.6 mg tab(s) (SENOKOT) 8.6 mg ORAL/FEEDING TUBE BID pantoprazole DR 40 mg tab(s) (PROTONIX) 40 mg ORAL DAILY (6 AM) ondansetron 8 mg tab(s) (ZOFRAN) 8 mg ORAL q 8 H PRN diphenhydrAMINE 50 mg (BENADRYL) 50 mg ORAL/FEEDING TUBE q 6 H PRN sulfamethoxazole-trimethoprim 400-80 mg 2 tablet (BACTRIM,SEPTRA) 2 tablet ORAL/FEEDING TUBE -WE- predniSONE (DELTASONE) tab(s) 80 mg 80 mg ORAL/FEEDING TUBE DAILY hydrocortisone sodium succinate (PF) 100 mg injection (Solu- CORTEF) 100 mg INTRAVENOUS q 4 H PRN diphenhydrAMINE 50 mg injection (BENADRYL) 50 mg INTRAVENOUS q 4 H PRN NaCl 0.9% iv infusion 5-30 mL/hr INTRAVENOUS CONTINUOUS prochlorperazine 5 mg injection (COMPAZINE) 5 mg INTRAVENOUS q 6 H PRN 0.9% NaCl 2-10 mL 2-10 mL INTRAVENOUS PRN 0.9% NaCl 3-5 mL 3-5 mL INTRAVENOUS q 12 H dextrose 50% in water 25-50 mL syringe 12.5-25 g INTRAVENOUS PRN dextrose 40 % 15 g 15 g ORAL PRN glucagon 1 mg injection (GLUCAGEN) 1 mg SUBCUTANEOUS PRN acetaminophen 650 mg tab(s) (TYLENOL) 650 mg ORAL/FEEDING TUBE q 6 H PRN acetaminophen 650 mg suppository (TYLENOL) 650 mg RECTAL q 6 H PRN ? PHYSICAL EXAMINATION: General: Alert, NAD.On Nasal canula 02. HEENT: Grossly PERRLA, EOMI, anicteric Heart/CV: Grossly RRR Lungs/Resp/Chest: Normal chest wall movement. Abd: Grossly ND, no HSM, no other masses Extremities/Skin: No rashes appreciated DATA: Labs: Component Latest Ref Rng AND Units 11/02/2017 11/02/2017 11/02/2017 11/02/2017 11/03/2017 11/03/2017 6:20 AM 11:45 AM 6:25 PM 11:40 PM 6:35 AM 12:43 PM WBC 3.70 - 11.00 k/uL 12.38 (H) 13.34 (H) 12.84 (H) 14.34 (H) 10.93 12.45 (H) RBC 3.90 - 5.20 m/uL 2.37 (L) 2.50 (L) 2.58 (L) 2.58 (L) 2.35 (L) 2.66 (L) Hemoglobin 11.5 - 15.5 g/dL 7.2 (L) 7.8 (L) 8.1 (L) 8.1 (L) 7.5 (L) 8.3 (L) Hematocrit 36.0 - 46.0 % 22.7 (L) 23.8 (L) 24.6 (L) 24.7 (L) 22.4 (L) 25.8 (L) MCV 80.0 - 100.0 fL 95.8 95.2 95.3 95.7 95.3 97.0 MCH 26.0 - 34.0 pG 30.4 31.2 31.4 31.4 31.9 31.2 MCHC 30.5 - 36.0 g/dL 31.7 32.8 32.9 32.8 33.5 32.2 RDW-CV 11.5 - 15.0 % 24.6 (H) 25.1 (H) 24.9 (H) 25.3 (H) 25.5 (H) 26.5 (H) Platelet Count 150 - 400 k/uL 38 (L) 30 (L) 16 (L) 35 (L) 29 (L) 44 (L) MPV 9.0 - 12.7 fL 10.0 <<DO NOT REPORT>> <<DO NOT REPORT>> <<DO NOT REPORT>> <<DO NOT REPORT>> <<DO NOT REPORT>> Absolute nRBC <0.01 k/uL 0.23 (H) 0.20 (H) 0.11 (H) 0.11 (H) 0.10 (H) 0.06 (H) ASSESSMENT/PLAN: 27 y/o female?with PMHx of Triple-positive Anti-phospholipid Syndrome diagnosed in 2013?(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 Recent admission 10/13/17-10/23/17 for hemoptysis and SOB, requiring intubation, was in MICU for management of DAH. Admitted to MICU again for extensive left retroperitoneal hemorrhage s/p IR guided intervention (initially on 10/23 at [facility] and 10/26 here at [facility]. ? # Antiphospholipid antibody syndrome Extensive left retroperitoneal hemorrhage likely secondary to anticoagulant. Its an unfortunate case, she needs an anticoagulation for APS but bleeding episodes prohibit it. On IHD Platelets have improved with transfusion. Peripheral smear reviewed with Dr. Keenan- Lot of nucleated RBC's, decreased platelet number. Her increased nucleated RBC's suggest stressed marrow given retroperitoneal bleed. She is still has evidence of hemolysis with elevated LDH and low haptoglobin. Received Apheresis today. Doing much better Will evaluate if further need of apheresis tomorrow. - Hemolysis and DIC labs for tomorrow (ordered for you) - Hold off on any anticoagulation for now. - Please transfuse Platelets to keep Plt >30 K. Please check post transfusion CBC 1 hour after transfusion. - continue with Prednisone 80mg PO - Continue with cytoxan to 75 mg (per Nephro recs) - Please Transfuse for Hgb >7 and Plt > 30. ? Hematology team will follow. Pt discussed with Dr. Wolfe ? Juan Christopher MD Fellow, Hematology and Medical Oncology Pager: [phone] Addendum: I have repeated the pertinent features of the history and examination and reviewed appropriate available diagnostics in this patient. I am in agreement with the plan as stated above. I discussed the above plan with the patient and I have answered questions asked by the patient. Pt is clinically stable with no new complaints today. Restarted apheresis today and tolerated it well. Will keep close eye on hemolysis labs as dark colored plasma noted today is concerning for ongoing hemolysis possibly 2/2 microangiopathic hemolytic anemia which has been reported in APS patients outside of [facility]. Will repeat hemolysis labs along with DIC labs tomorrow and take another look at her peripheral smear in the AM. Continue transfusion support at this time-given her recent bleed and ongoing thrombocytopenia, we have no good option but to continue to hold anticoagulation. Will follow closely. Luz Maria Wolfe MD November 03, 2017 5:05 PM THERAPY NT Observed: 11/03/2017 Status: COMPLETED Source: [place] 3:47 PM [facility] REPOSITORY HNO ID: [id number] Author: Tamiko SanchezOt/LDevonte Nelson Service: Occupational Therapy Author Type: Occupational Therapist Type: Therapy (PT/OT/Speech/Resp) Filed: 11/03/2017 3:47 PM Note Text: OCCUPATIONAL THERAPY MISSED VISIT SERVICE DATE: 11/03/2017 SERVICE TIME: 1547 to 1547 ROOM: [place] [address] Attempted Treatment. Patient not seen due to Test/Procedure, IHD at bedside, Will re-attempt as able. SIGNATURE: Tamiko Nelson OT/L PATIENT NAME: Paloma Cannon DATE: November 03, 2017 TIME: 3:47 PM PAGER/CONTACT #:[phone] THERAPY NT Observed: 11/03/2017 Status: COMPLETED Source: [place] 2:23 PM [facility] REPOSITORY HNO ID: [id number] Author: Brenda SanchezPtDevonte Meraz Service: Physical Therapy Author Type: Physical Therapist Type: Therapy (PT/OT/Speech/Resp) Filed: 11/03/2017 2:24 PM Note Text: PHYSICAL THERAPY MISSED VISIT SERVICE DATE: 11/03/2017 SERVICE TIME: 1405 to 1405 ROOM: [place] [address] ([facility] MA[facility] (M12 Plasma)) Attempted Treatment. Patient not seen due to Another service at bedside. IHD at bedside. Will check back as able SIGNATURE: Brenda Meraz PT PATIENT NAME: Paloma Cannon DATE: November 03, 2017 TIME: 2:23 PM PAGER/CONTACT #: [phone] , CBC Collected: 11/03/2017 Status: F Source: [place] 12:43 PM [facility] REPOSITORY TYPE CODE TESTS RESULT OUT OF REFERENCE UNITS RANGE LAB WBC 3.70-11.00 k/uL WBC High 12.45 LAB RBC 3.90-5.20 m/uL Low RBC 2.66 LAB HGB 11.5-15.5 g/dL Low Hemoglobin 8.3 LAB HCT 36.0-46.0 % Low Hematocrit 25.8 LAB MCV 80.0-100.0 fL MCV 97.0 LAB MCH 26.0-34.0 pG MCH 31.2 LAB MCHC 30.5-36.0 g/dL MCHC 32.2 LAB RDWCV 11.5-15.0 % RDW-CV High 26.5 LAB PLTCT 150-400 k/uL Low Platelet Count 44 Result Comment: Result checked and verified No clot detected. LAB MPV 9.0-12.7 fL MPV <<DO NOT REPORT>> LAB ABSNUC <0.01 k/uL 0.06 High Absolute nRBC Performed By: #### CBC #### [facility] [address] [place], [place] [address] THERAPY NT Observed: 11/03/2017 Status: COMPLETED Source: [place] 12:28 PM [facility] REPOSITORY HNO ID: [id number] Author: Tamiko (Pt) Adelaida Service: Physical Therapy Author Type: Physical Therapist Type: Therapy (PT/OT/Speech/Resp) Filed: 11/03/2017 12:36 PM Note Text: Physical Therapy Wound/Lymph Treatment SERVICE DATE: 11/03/2017 SERVICE TIME: 1105 to 1130 ROOM: [place] [address] ([facility] MA[facility] (M12 Plasma)) Recommended Discharge Disposition Comments: will require further assessment Anticipated Discharge Needs: Undetermined PT Recommendations to Nursing: With assist of 1 person;Transfer to/from chair;OOB for Meals 6 Clicks Score: 14 Skin Condition: BLE lymphedema Frequency of Dressing Change:Daily - compression wraps to be worn during the day hours Physical Therapy to Perform Dressing Change: 4x/week to be coordinated with nursing Nursing to Perform Dressing Change:1x/day Monday and Monday Dressing/Treatment Type: See Clinical Documentation report for specific dressing information. ASSESSMENT : Today circumferential measurements did not reveal any significant improvement since initial evaluation. Since evaluation pt has been transferred from [facility] to intermittent dialysis and has not been able to tolerate wearing compression wraps for any significant period of time. These are likely the chief limiting factors at this time. Pt remains motivated and appropriate for skilled intervention. Pt is physically unable to perform compression wrapping therefore will need to perform training with a family member. Plan to continue with current POC at this time. Patient Disposition at Start of Session: Supine in Bed Patient Disposition at End of Session: Supine in Bed;Call Wagoner in Reach Tolerated Full Session Physical Therapy Problem List: Cognitive Deficit;Education Deficit;Decreased Activity Tolerance;Decreased Strength;Functional Mobility Impairment Patient /Caregiver Goals: Unique to general PT Goals for Plan of Care: 1. Decongestion of BLE with girth measurements decreased by 2-4 cm per segment to increase level of independence with functional mobility and ADL's, decrease pain, decrease recurrence of infection, improved range of motion and allow appropriate fit in compressive garment. 2. Pt and/or caregiver will demonstrate compliance in knowledge of lymphedema precautions including meticulous skin and nail care to reduce risk of infection and further exacerbation. 3. Pt and/or caregiver will demonstrate the correct method of Lymphatic Bandaging/compression technique and independent understanding of the principles and theory of compression 4. Pt and/or caregiver will be independent in their exercise program to enchance Lymphatic flow and decongestion of the affected body parts 5. Patient/ Caregiver will be able to demonstrate competence with offloading recommendations and pressure relieving strategies 6. Patient/ Caregiver will be able to state the signs and symptoms of infection Progress Toward Goals: Progressing slower than expected Due To: pt not wearing compression wraps 23 hours/ day and medical status Rehab Potential: Fair PLAN: Treatment Frequency (times per week): 4 Current admission Treatment Interventions: Education;Self Care / Home Management;Joint Mobility;Strengthening;Functional Mobility Training;Balance Training;Edema Management;Pain Management Plan of Care developed with: Patient TREATMENT INTERVENTIONS: Interventions Provided: Manual Therapy (59245) Manual Therapy (66129) Treatment Minutes: 25 2 units Skilled Intervention: Manual skills to improve joint mobility, range of motion, and decrease pain. Educated patient on the following aspect of Complete Decongestive Therapy (CDT): 1. Compressive Therapy: Discussed rationale for compression garment and bandaging Instructed in proper technique for compression wrapping Skilled interventions: - Increase lymaphtic fluid dynamics - Increase skin extensibility - Utilized anatomy knowledge of the therapist, and assessment of patient's response to intervention. ? Manual Compression performed: 1. Skin inspected and cleansed thoroughly 2. Applied lotion to BLE 3. Applied 1 surgigrip + 1 surepress wraps applied at 50% tension with a 50% overlap (deferred ankle padding today). Spoke at length with pt re: when to loosen or remove the bandages (i.e.: in the event that pain becomes a limiting factor or pt experienced new onset SOB or worsening of respiratory status). Pt verbalized understanding. ? Education: 1. Discussed with patient and nursing the risks and benefits of compression therapy and how compression is indicated in this case. 2. Educated patient/ caregiver regarding rationale for compression wrapping. 3. Instructed in proper technique for compression wrapping. ? Total Timed Code Treatment Minutes: 25 Total Treatment Time (minutes): 25 SUBJECTIVE: Current Hospital Course: Chart reviewed and no significant medical updates relevant to therapy were noted Patient Report: Pt in good spirits and agreeable to PT for lymphedema today. I think I may be transferred out of the ICU soon. 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 Entry To Home: No Stairs Number Of Stairs To Bed/Bath: 0 Tub/Shower Type: walk in shower Equipment Owned: Commode-Raised;Grab Bars-Shower;Grab Bars-Toilet;Shower Chair;Home Oxygen Prior Functional Level: Required Assistance Assistance Required With: Cleaning;Laundry;Meals;Shopping;Transportation Prior Wound Care: Other: See Comment (unable to don compression stockings (I)) OBJECTIVE: Location Evaluation Date: 10/30/17 Date: 11/03/17 Right Left Right Left Metatarsal Heads 24cm 22.5cm 24cm 24cm Ankle ([place]) 23.25cm 22.5cm 24cm 25cm 10cm above malleoli 28.5cm 28cm 30cm 27.5cm 20cm above malleoli 42cm 43.25cm 42cm 40cm 30cm above malleoli 45.5cm 41.5cm 46cm 47cm LLE Circumferential Measurements: Metatarsal Heads;Ankle;10 cm;20 cm;30 cm Left Metatarsal Heads: 24cm Left Ankle: 25cm Left Lower Extremity 10cm: 27.5cm Left Lower Extremity 20cm: 40cm Left Lower Extremity 30cm: 47cm RLE Circumferential Measurements: Metatarsal Heads;Ankle;10 cm;20 cm;30 cm Right Metatarsal Heads: 24cm Right Ankle: 24cm Right Lower Extremity 10cm: 30cm Right Lower Extremity 20cm: 42cm Right Lower Extremity 30cm: 46cm Sensation Sensation: Right Lower Extremity;Left Lower Extremity Right Lower Extremity Sensation: Light Touch RLE Light Touch: Intact Left Lower Extremity Sensation: Light Touch LLE Light Touch: Intact Circulation Pulses: Right Dorsalis Pedis;Left Dorsalis Pedis Right Dorsalis Pedis Pulse: (unable to palpate due to lymphedema; present via doppler) Left Dorsalis Pedis Pulse: (unable to palpate due to lymphedema; present via doppler) Capillary Refill: Right Lower Extremity;Left Lower Extremity Right Lower Extremity Capillary Refill: Intact Left Lower Extremity Capillary Refill: Intact See Clinical Documentation report for Skin Documentation. Current Functional Mobility Assist Level Additional Information Rolling Minimal Assistance Supine to Sit Minimal Assistance Sit to Supine Moderate Assistance Scooting Minimal Assistance Sit to Stand Moderate Assistance Stand to Sit Moderate Assistance Bed to Chair Moderate Assistance Toilet/Commode Gait Please see discipline specific clinical documentation flowsheet for complete details for this therapy evaluation/treatment. SIGNATURE: Tamiko Son PT PATIENT NAME: Paloma Cannon DATE: November 03, 2017 TIME: 12:28 PM PAGER/CONTACT #: [phone] CASE MANAGEM Observed: 11/03/2017 Status: COMPLETED Source: [place] 9:53 AM [facility] [facility] RE[facility] HNO ID: [id number] Author: Lisseth Coto (Sw) Service: Case Management Author Type: Toolmaker Helper Type: Care Mgt Progress Note Filed: 11/03/2017 9:54 AM Note Text: CARE MANAGEMENT PROGRESS NOTE SERVICE DATE: 11/03/2017 SERVICE TIME: 9:53 AM LOS: 9 days Needs Prior to Discharge: To Be Determined Pain better controlled. Plan on RNF after dialysis today, transfuse as needed pending CBC. Plan for apheresis today. lab pack chemist AR. ERIKA attempted to meet with pt and discuss AR, however apheresis tech at bedside working with pt. ERIKA will attempt to follow up this afternoon. SIGNATURE: JUAN PABLO Romo PATIENT NAME: Paloma Cannon DATE: November 03, 2017 TIME: 9:53 AM PAGER/CONTACT #: [phone] PROGRESS Observed: 11/03/2017 Status: COMPLETED Source: [place] 9:27 AM [facility] REPOSITORY HNO ID: [id number] Author: Austen Choudhury Service: Critical Care Author Type: Physician Type: Progress Notes Filed: 11/03/2017 11:19 AM Note Text: SERVICE DATE: 11/03/2017 SERVICE TIME: 9:27 AM MICU PROGRESS NOTE Admission Date: 10/25/2017 Hospital Day # 9 SUBJECTIVE Interval HPI: Improved reports more movement in left leg compared to yesterday pain is somewhat better using WAITER/WAITRESS CABIN CLASS less, basal rate has been off x24 hours OBJECTIVE Vital Signs (last filed) Range in last 24h Temp: 37.6 ?C (99.7 ?F) (04/27/18 0400) Temp Min: 36.4 ?C (97.6 ?F) Max: 37.6 ?C (99.7 ?F) Pulse: 101 (11/03/17 0900) Pulse Min: 79 Max: 103 Resp: 23 (11/03/17 0900) Resp Min: 14 Max: 33 BP: 161/88 (11/03/17 0900) BP Min: 137/78 Max: 182/92 MAP Non Invasive (Mean Arterial Pressure): 116 (11/03/17 0900) MAP Non Invasive (Mean Arterial Pressure) Min: 98 Max: 130 No Data Recorded SpO2: 97 % (11/03/17 09) SpO2 Min: 93 % Max: 100 % Pain Score: 0/10 (11/03/17 0845) Fluid Balance: Intake/Output Summary (Last 24 hours) at 11/03/17 0659 Last data filed at 11/03/17 0600 Gross per 24 hour Intake 2635 ml Output 2895 ml Net -260 ml Last Weight: 100.6 kg (221 lb 12.5 oz) (11/03/17 0628) Admit Weight: 112.2 kg (247 lb 5.7 oz) (10/25/17 2327) DIET HEART HEALTHY Lines, Drains, and Airways Line Central Line Single Lumen 10/25/17 2314 Tunneled Left Chest 8 days Dialysis / Apheresis Double Lumen 10/25/17 2314 Admission to Hospital Left Chest 8 days Peripheral 10/30/17 0745 Left Forearm 4 days Drain Indwelling Urinary Catheter 10/23/17 0520 Assessment Zuniga 11 days Vent/Oxygen: Supplemental Oxygen: Yes. FiO2 room air to 2 liters nasal cannula No Data Recorded Physical Examination Performed Oral Mucosa: Dry mucous membranes Eyes: PERRL Neck: Unremarkable; No adenopathy or JVD Cardiovascular: Regular rhythm Respiratory: Clear to auscultation Abdomen: Soft and Nontender Extremities: Edema- Yes Peripheral Pulses- Present all extremities Capillary Refill- less than 3 seconds Skin: Abnormalities- No Breakdown- No Neurologic: Awake, oriented, Follows commands Infusion Medications HYDROmorphone WAITER/WAITRESS CABIN CLASS 0.5 mg/mL NaCl 0.9% Last Rate: 30 mL/hr (11/03/17 0500) Diagnostic tests reviewed today: Most recent labs and imaging results. PATIENT CHECKLIST ? Are restraints necessary: No ? Deep vein thrombosis prophylaxis administered? No. Contraindicated. ? Stress ulcer prophylaxis? Yes ? Nasogastric tube? No ? Zuniga catheter necessary? Yes ? Is central line essential? Yes ? Plan discussed with assigned RN? Yes ? Family updated within last 24 hours? Yes CARE COORDINATION: Patient Summary: 27 year old female with a PMHx for Anti-phospholipid syndrome c/b DVT/PE requiring extensive percutaneous thrombectomy of her IVC and lower extremity veins followed by b/l iliac venous stents and endograft into her IVC, on long-term anti-coagulation (recently changed to fondaparinux from coumadin on 10/13 admission) and IVC, plasmapheresis q2 weeks, prednisone 5mg daily, DAH - on cyclophosphamide and prednisone, has had 6 episodes of respiratory decline since 2013, last admission for hemoptysis on 10/13/17, on 2 L at night and with exertion, HIT, CKD 3, 2/2 renal vein thrombosis and contrast-induced nephropathy, HFpEF, HTN, Peripheral neuropathy, post-thrombotic syndrome, and was transferred from [place] for ongoing L RP bleeding. Major Interval Events: 10/26: Transferred from [place]. Hgb down to 5.5. CTA showing active extravasation, IR embolization of left L2, L3 arteries 10/27: Hgb 6.6, continued to transfuse PRBCs, acute onset right groin pain 10/28: Hgb 6.5, additional PRBCs given, Hgb stable 7.5 after transfusion 10/29: Hgb 6.9, plt 18, transfused 1U pRBCs and 1U plts 10/30: Hgb 7.2, HDS 10/31: Hgb 6, plt 15, transfused 1U PRBCs and 1U plts 11/01: required 1U PRBCs and 1U plts overnight, repeat CBC: Hgb 7.2, plt 32 11/02: No acute events overnight. Plts >30, received IHD yesterday, SCr improving, noted to have loss of sensation in left lower extremity. 11/03: Transfused 1 U Plts, recheck 35, now down to 29. IHD, plasma apheresis, more movement in LLE, remains hypertensive Plan for Day: - Trend CBC and transfuse to Hgb>7, Plt >30 - continue PO oxycodone, wean dilaudid WAITER/WAITRESS CABIN CLASS - Hold anticoagulation - Monitor respiratory status - IHD - apheresis today - Increase coreg - DVT scan - PT/OT - Transfer to [facility] after dialysis - Plan discussed with MICU staff ASSESSMENT AND PLAN Overview, Assessment AND Plan, all Hosp Problems Active Hospital Problems as of 11/03/2017 Noted - Resolved Hospital Weakness of left leg 11/02/2017 - Present Overview 11/02 Left leg weakness/parasthesia Consult to neurology likely related to lumbar nerve compression from large retroperitoneal hematoma Current Assessment AND Plan PLAN: - Neurology evaluated - Continue gabapentin for pain control - Aggressive PT/OT - No indication for drainage of hematoma Right groin pain 10/27/2017 - Present Overview 10/27: C/o acute pain this morning, access site for embolization at [facility], no erythema or induration appreciated on exam, exquisitely TTP Groin study showed no signs of PSA, known AV fistula visualized with retrograde flow, vascular med aware- no further recs 10/28: pain less severe, no physical exam findings Current Assessment AND Plan PLAN: - Pedal pulse checks Q2 - Vascular med has signed off - No additional recs from vascular surgery - cont pain regimen * (Principal)Retroperitoneal hematoma 10/26/2017 - Present Overview Retroperitoneal bleed: s/p 7 units PRBCs s/p IR emobolization of left L3 artery at [facility] on 10/23 IR embolization of left L2 and L3 arteries on 10/26 CT abd/pel 10/31: RP bleed stable when compared to previous imaging from 10/27 LDH 1730, haptoglobin <10, Tbili 1.3 Per heme, thrombocytopenia and anemia likely related to cytoxan Current Assessment AND Plan Assessment: secondary to anticoagulation, likely not actively bleeding and starting to breakdown and absorb clot PLAN: - Monitor CBC and transfuse to Hgb>7, plt>30 per heme - Premedicate for transfusions - Hold anticoagulation - cyclophosphamide to 75mg - Heme following, appreciate recs - Apheresis today - pain regimen Peripheral neuropathy 04/14/2016 - Present Current Assessment AND Plan PLAN: - Continue neurontin increased yesterday - Monitor MS Moraxella catarrhalis pneumonia (HCC) 10/29/2017 - Present Current Assessment AND Plan PLAN: - Completed course of ceftriaxone 10/26-11/02 HTN (hypertension) 10/08/2015 - Present Overview Mildly decreased systolic function, diastolic function indeterminate on 4/6/18 ECHO. 10/28: Run of SBP in 200s overnight (likely d/t pain), given hydralazine however still consistently in 170s-180s 10/29: Still hypertensive, required 4 doses of hydralazine overnight Current Assessment AND Plan PLAN: - amlodipine to 10 mg daily - Coreg started yesterday will increase today - Hydralazine prn - Continue pain management 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 - Present Current Assessment AND Plan PLAN: - Avoid heparin and heparin-like products 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 Alicea PLAN: - Decrease cyclophosphamide to 75mg daily per heme and nephro recs - Continue prednisone - IHD Anti-phospholipid antibody syndrome (HCC) 10/25/2017 - Present Current Assessment AND Plan PLAN: - Apheresis today - Continue prednisone - Hold anticoagulation until resolution of retroperitoneal bleed - Hematology following, appreciate recs - Vascular med has signed off CAPRICE (acute kidney injury) (HCC) 10/08/2015 - Present Overview CAPRICE on CKD III, 2/2 contrast, now requiring dialysis First HD at [facility] on 10/25 with tunneled dialysis catheter placement CT Abdomen/pelvis from 10/26 showed occlusion of B/L renal veins, outflow not appreciated- could be attributing to CAPRICE and CKD Bladder scan Current Assessment AND Plan Assessment: CAPRICE on CKDIII secondary to FABY, now on dialysis PLAN: - Nephrology following - IHD today - Monitor I/Os - sevelamer TID - renal diet Plan of care discussed with: Patient, ICU Team and RN SIGNATURE: Daysi García APRN.CNP PATIENT NAME: Paloma Cannon DATE: November 03, 2017 TIME: 9:27 AM PAGER/CONTACT #: [phone] DR. FRED STONE, SR. HOSPITAL STAFF PHYSICIAN NOTE OF PERSONAL INVOLVEMENT IN CARE I have reviewed the progress note?obtained and documented by the nurse practitioner?and I personally participated in the fernandes components. I have discussed the case and management of the patient's care. The following comments revise or confirm relevant fernandes components of the note. ?? 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 Transfer to MICU for retroperitoneal bleeding now s/p coiling of bleeding vessels (last embolization on 10/26/2017). IVC thrombus s/p IVC filter. On 2?L/min of O2. Moraxella lung infection under treatment with ceftriaxone until 11/02/2017. Treated with cyclophosphamide (dose recently lowered given potential association with bicytopenia)?/ steroids / plasmapheresis. CT abdomen 10/27 showed GROSSLY STABLE SIZE OF LARGE, ACUTE/SUBACUTE LEFT RETROPERITONEAL HEMATOMA. ?NO NEW HEMATOMA IS IDENTIFIED. ?Repeat CT abdomen without contrast showed stable hematoma. CAPRICE (contrast induced / ATN) on IHD. CAPRICE on IHD. Worsening thrombocytopenia. Requires on average 1 unit of PRBC and platelets daily. Peripheral blood smear showed no schistocytes. Numbness on the left lower extremity + weakness (L4-L5 nerve distribution) -> likely related to retroperitoneal hematoma + lumbar plexus compression -> Neurology -> PT. ?? PLAN:?Plasmapheresis today. IHD today. Wean O2 as tolerated. Continue oral analgesics to lower WAITER/WAITRESS CABIN CLASS pump.? PT ?? Patient/Family Updated:?Pt was updated. ?? This patient has a high probability of sudden, clinically significant deterioration, which requires the highest level of physician preparedness to intervene urgently. ?I managed/supervised life or organ supporting interventions that required frequent physician assessment. ?I devoted my full attention to the direct care of this patient for the amount of time indicated below. ?Time I spent with family or surrogate(s) is included only if the patient was incapable of providing the necessary information or participating in medical decision making. ?Time devoted to teaching and to any procedures I billed separately is not included. ?? Critical Care Documentation:?The patient has the following organ/system impairment(s): ?Acute blood loss, Acute kidney injury, Coagulopathy and Respiratory failure (Acute, with Hypoxemia) ?? Time spent providing critical care services: ?32?minutes. ?? SIGNATURE: Austen Choudhury MD [facility] PAGER:[phone] November 03, 2017 PROCEDURE Observed: 11/03/2017 Status: COMPLETED Source: [place] 9:04 AM [facility] REPOSITORY [facility] ID: [id number] Author: Zahra Wallace Service: Apheresis Author Type: Physician Type: Procedures Filed: 11/03/2017 11:05 AM Note Text: APHERESIS THERAPEUTIC PROCEDURE NOTE SERVICE DATE: 11/03/2017 SERVICE TIME: 844 TREATMENT #: 89. Pre-treatment labs drawn: No PLAN Next treatment- To be determined. : 1990 Age: [age] year old Gender: female Patient identification confirmed patient, birthdate and MRN Apheresis Requested By: Hematology Diagnosis: Thrombotic Microangiopathy (TTP) Treatment Procedure: Plasmapheresis Protocol: N/A LABS Recent Labs 11/03/17 0635 11/02/17 2340 10/31/17 1252 WBC 10.93 14.34* < > -- HB 7.5* 8.1* < > -- HCT 22.4* 24.7* < > -- PLT 29* 35* < > -- BUN -- 36* < > -- CREAT -- 1.25* < > -- ALB -- 3.4* < > -- CA -- 8.4* < > -- MG -- 1.8 < > -- LD -- -- -- 1730* TBILI -- 1.2 < > -- < > = values in this interval not displayed. INTERVAL HISTORY: Patient reports feeling well. No questions at this time. PRE-TREATMENT BP 161/88 Pulse 101 Temp 37.6 ?C (99.7 ?F) Resp 23 Ht 160 cm (5' 3) Wt 100.6 kg (221 lb 12.5 oz) SpO2 97% BMI 39.29 kg/m2 Treatment performed at: Unit/Bed- G060 006/G060-06 Date: 11/03/2017 Catheter Site Dressing: Dry and intact. Venous access: left red port and SC double lumen catheter, venous return: left blue port and SC double lumen catheter. PRE-MEDICATION diphenhydramine 50mg IV Time:09 TREATMENT PARAMETER DATA Whole blood processed: 6300 ml Volume removed: 3731 ml Volume replaced: Albumin 1000 ml, NSS 500 ml and FFP 2011 ml ACD to patient: 99 ml Calcium gluconate 10%: 30 ml Extra fluids: 0 ml NSS via separate IV. Net fluid balance: + 16 ml POST-TREATMENT Vital signs: BP 149/77 HR 85 RR 20 Labs Drawn: None At completion of treatment: Lumen flushed with 10 ml NSS and Lumen flushed with 3 ml 4% sodium citrate Patient tolerated treatment well without complications: Yes Report given to unit nurse. Patient remains in hospital bed. Treatment Started by Apheresis Nurse: Angella Ortiz RN Treatment Completed by Apheresis Nurse: Angella Ortiz RN DR. FRED STONE, SR. HOSPITAL STAFF PHYSICIAN NOTE OF PERSONAL INVOLVEMENT IN CARE No blood transfusion for a few days. She feels better also. Note plans to transfer to [facility]. On dialysis and IUF alternating. I reviewed the patients labs, medications and allergies prior to proceeding with this therapeutic treatment and discussed the case and parameters with the apheresis nurse. I have reviewed this therapeutic progress note documented by the apheresis nurse. I personally participated in all pertinent aspects and fernandes components of the therapeutic treatment. I was present during the treatment. Note her plasma is much darker. Etio? Signature: Zahra Wallace MD November 03, 2017 11:03 AM Pager: [phone] CONSULT PROG Observed: 11/03/2017 Status: COMPLETED Source: [place] 8:21 AM [facility] REPOSITORY HNO ID: [id number] Author: Laya Peters (Fel) Service: Nephrology Author Type: Fellow Type: Consult Progress Note Filed: 11/03/2017 2:01 PM Note Text: CONSULT PROGRESS NOTE NEPHROLOGY SERVICE Subjective INTERVAL HISTORY: No overnight events Planned for pharesis today IHD today MEDICATIONS: Current hospital medications: gabapentin 300 mg cap(s) (NEURONTIN) 300 mg ORAL q 12 H carvedilol 3.125 mg tab(s) (COREG) 3.125 mg ORAL/FEEDING TUBE BID w MEALS cyclophosphamide (CYTOXAN) cap(s) 75 mg 75 mg ORAL DAILY oxyCODONE IR 10 mg tab(s) (ROXICODONE) 10 mg ORAL/FEEDING TUBE q 6 H polyethylene glycol 3350 17 g packet (MIRALAX, GLYCOLAX) 17 g ORAL/FEEDING TUBE DAILY docusate sodium 100 mg cap(s) (COLACE) 100 mg ORAL BID hydrALAZINE 10 mg injection (APRESOLINE) 10 mg INTRAVENOUS q 2 H PRN amLODIPine 10 mg tab(s) (NORVASC) 10 mg ORAL/FEEDING TUBE DAILY senna 8.6 mg tab(s) (SENOKOT) 8.6 mg ORAL/FEEDING TUBE BID pantoprazole DR 40 mg tab(s) (PROTONIX) 40 mg ORAL DAILY (6 AM) ondansetron 8 mg tab(s) (ZOFRAN) 8 mg ORAL q 8 H PRN diphenhydrAMINE 50 mg (BENADRYL) 50 mg ORAL/FEEDING TUBE q 6 H PRN sulfamethoxazole-trimethoprim 400-80 mg 2 tablet (BACTRIM,SEPTRA) 2 tablet ORAL/FEEDING TUBE predniSONE (DELTASONE) tab(s) 80 mg 80 mg ORAL/FEEDING TUBE DAILY hydrocortisone sodium succinate (PF) 100 mg injection (Solu- CORTEF) 100 mg INTRAVENOUS q 4 H PRN HYDROmorphone WAITER/WAITRESS CABIN CLASS 0.5 mg/mL in NaCl 0.9% 100 mL INTRAVENOUS CONTINUOUS diphenhydrAMINE 50 mg injection (BENADRYL) 50 mg INTRAVENOUS q 4 H PRN NaCl 0.9% iv infusion 5-30 mL/hr INTRAVENOUS CONTINUOUS prochlorperazine 5 mg injection (COMPAZINE) 5 mg INTRAVENOUS q 6 H PRN 0.9% NaCl 2-10 mL 2-10 mL INTRAVENOUS PRN 0.9% NaCl 3-5 mL 3-5 mL INTRAVENOUS q 12 H dextrose 50% in water 25-50 mL syringe 12.5-25 g INTRAVENOUS PRN dextrose 40 % 15 g 15 g ORAL PRN glucagon 1 mg injection (GLUCAGEN) 1 mg SUBCUTANEOUS PRN acetaminophen 650 mg tab(s) (TYLENOL) 650 mg ORAL/FEEDING TUBE q 6 H PRN acetaminophen 650 mg suppository (TYLENOL) 650 mg RECTAL q 6 H PRN Objective PHYSICAL EXAM: BP 170/91 Pulse 95 Temp 37.6 ?C (99.7 ?F) Resp (!) 33 Ht 160 cm (5' 3) Wt 100.6 kg (221 lb 12.5 oz) SpO2 95% BMI 39.29 kg/m2 Intake/Output Summary (Last 24 hours) at 11/03/17 0822 Last data filed at 11/03/17 0600 Gross per 24 hour Intake 1468 ml Output 2830 ml Net -1362 ml Constitutional: No acute distress and Responsive Neck: Trachea midline No jugular venous distension Cardiovascular: Regular rate and ryhthm, normal S1 and S2, no murmurs, rubs, or gallops +3 edema (LE wrapped) Respiratory: Normal respiratory effort. Abdomen: Soft, non-tender, non-distended. Normal bowel sounds. No hepatosplenomegaly. Psychiatric: Alert and oriented x self, place, time, and setting Normal mood/affect Vascular Access: Hemodialysis catheter location: Left Tunneled internal jugular. Exit site demonstrates: normal findings DATA: Diagnostic tests reviewed for today's visit: Most recent labs and imaging results. Recent Labs 11/02/17 2340 11/02/17 0120 11/01/17 0302 10/30/17 2338 10/29/17 2335 NA 132* 134* 132* 131* 132* K 3.7 3.9 4.0 4.5 4.4 CHLOR 94* 95* 91* 93* 95* CO2 21* 24 21* 23 25 BUN 36* 27* 43* 28* 25* CREAT 1.25* 1.18* 1.89* 1.39* 1.25* GLUC 124* 93 124* 107* 115* ANION 17 15 20* 15 12 CA 8.4* 8.4* 8.1* 9.0 9.3 P 3.1 2.1* 3.0 3.2 2.8 MG 1.8 2.0 1.7 2.0 2.2 Recent Labs 11/03/17 0635 11/02/17 2340 11/02/17 1825 WBC 10.93 14.34* 12.84* HB 7.5* 8.1* 8.1* HCT 22.4* 24.7* 24.6* PLT 29* 35* 16* No results for input(s): INR, APTT in the last 168 hours. Recent Labs 10/24/17 0500 10/15/17 1223 10/13/17 1846 COLOR Straw* Yellow Red* CLARITY Hazy* Cloudy* Cloudy* UGLUC 150* Negative Negative UBILI Negative Negative 1+* UKET Negative Negative Negative SPGR 1.009 1.019 >1.030* UHB Large* 1+* 3+* UPH 9.0* 5.0 6.0 UPROT 100* 30* >=300* NITRITES Negative Negative Positive* LEUKEST Negative 1+* 2+* UWBC Negative 0-5 6-10* URBC Many* 3-5* >25* No results for input(s): PH, PCO2, PO2, LACT in the last 168 hours. Recent Labs 10/29/17 2335 10/20/17 0415 06/09/17 1024 ALLA -- -- 156.0 -- 363.9* TRANSFERSAT -- -- 9* -- 12* B12 -- -- -- -- 646 HB 7.6* < > 8.9* < > -- < > = values in this interval not displayed. Recent Labs 10/29/17 2335 10/26/17 0020 CA 9.3 < > 8.0* P 2.8 < > 8.4* ALB -- -- 3.2* < > = values in this interval not displayed. Recent Labs 11/02/17 2340 11/02/17 0120 11/01/17 0302 TBILI 1.2 1.6* 1.3 ALT 32 37 43* AST 34 45* 53* ALKPHOS 79 75 70 Assessment/Plan 27 year old female with history of HTN CKD stage 3 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 Transferred from [facility] where she presented with CAPRICE in the setting of retroperioneal hemorrhage with mass effect on L kidney s/p embolization on 10/23 .Nephrology consulted for CAPRICE 1. 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 -Serological work up : low c3 and c4 -Non oliguric . Clinically has anasarca . Scheduled for IHD today 2.Anemia and thrombocytopenia -concern for Micro angiopathic hemolytic anemia hapto <10 , LDH 1730 , few RBC fragments seen Associated problems -Electrolytes: Hyponatremia - Volume status: hypervolemic -.Acid-base: AG metabolic acidosis - Anemia and thrombocytopenia -multifactorial -blood loss , myelopsupression in the setting of cytoxan use -HTN -?Page kidney Active diagnoses Retroperitoneal hematoma Acute blood loss anemia HTN APLA syndrome Moraxella Pneumonia PLAN -IUF today 3L -start IV lasix 100mg BID -IUF tomorrow - Strict I/O's - Dose medications for eGFR <10 mL/min Consent for PAINT COATING MACHINE OPERATOR: PAINT COATING MACHINE OPERATOR initiation date: 10/26/17 Consent obtained and in EMR. Will discuss with staff SIGNATURE: Laya Peters MD PATIENT NAME: Paloma Cannon DATE: November 03 2017 TIME: 8:30 AM PAGER: [phone] TEACHING PHYSICIAN NOTE OF PERSONAL INVOLVEMENT IN CARE I have reviewed the Progress Note obtained and documented by Dr. William and I personally participated in the fernandes components. I have discussed the case and management of the patient's care and I agree with the formulated assessment and plan. In addition to above note: 27 yoF w h/o hypertension, chronic systolic heart failure w EF 45%, anti-phospholipid antibody Sd c/b IVC thrombosis s/p b/l iliac stents and endograft at IVC bifurcation on AC and PLEX, diffuse alveloar hemorrhage on CYC admitted with CAPRICE, found to have RP hematoma causing mass effect on left kidney s/p embolization. ? #. Acute renal failure - Etiology: multifactorial d/t ATN (blood loss anemia), FABY, mass effect on kidney - On PAINT COATING MACHINE OPERATOR since 10/26 ? #. Stage III CKD - Proteinuric (< 1g) w baseline SCr ~ 1.2-1.5 - Etiology: renal vein thrombosis and prior ATN ? #. Active diagnoses: - Acute blood loss anemia w RP hematoma - Anti-phospholipid antibody syndrome - Diffuse alveloar hemorrhage - Heparin-induced thrombosis ? RECS: Minimal increase in solutes - hopefully starting to recover - IUF treatment today. Start Furosemide 100 mg IV BID. Vini Toledo MD, FASN - Pager [phone] November 03, 2017 @ 10:03 AM CBC Collected: 11/03/2017 Status: F Source: [place] 6:35 AM [facility] REPOSITORY TYPE CODE TESTS RESULT OUT OF REFERENCE UNITS RANGE LAB WBC 3.70-11.00 k/uL WBC 10.93 LAB RBC 3.90-5.20 m/uL Low RBC 2.35 LAB HGB 11.5-15.5 g/dL Low Hemoglobin 7.5 LAB HCT 36.0-46.0 % Low Hematocrit 22.4 LAB MCV 80.0-100.0 fL MCV 95.3 LAB MCH 26.0-34.0 pG MCH 31.9 LAB MCHC 30.5-36.0 g/dL MCHC 33.5 LAB RDWCV 11.5-15.0 % RDW-CV High 25.5 LAB PLTCT 150-400 k/uL Low Platelet Count 29 Result Comment: Result checked and verified No clot detected. LAB MPV 9.0-12.7 fL MPV <<DO NOT REPORT>> LAB ABSNUC <0.01 k/uL 0.10 High Absolute nRBC Performed By: #### CBC #### [facility] [address] [place], [place] [address] COMP METABOLIC PANEL Collected: 11/02/2017 Status: F Source: [place] 11:40 PM [facility] REPOSITORY TYPE CODE TESTS RESULT OUT OF REFERENCE UNITS RANGE LAB TP 6.3-8.0 g/dL Low Protein, Total 6.0 LAB ALB 3.9-4.9 g/dL Low Albumin 3.4 LAB CA 8.5-10.2 mg/dL Low Calcium, Total 8.4 LAB TBIL 0.2-1.3 mg/dL Bilirubin, Total 1.2 LAB ALKP 32-117 U/L Alkaline Phosphatase 79 LAB AST 13-35 U/L AST 34 LAB GLU 74-99 mg/dL Glucose High 124 Result Comment: The [place] [employer] (ADA) provides guidance for cutoff values for fasting glucose and random glucose. The ADA defines fasting as no caloric intake for at least 8 hours. Fas ting plasma glucose results between 100 to 125 mg/dL indicate increased risk for diabetes (prediabetes). Fasting plasma glucose results greater than or equal to 126 mg/dL meet the criteria for diagnosis of diabetes. In the absence of unequivocal hyperglycemia, results should be confirmed by repeat testing. In a patient with classic symptoms of hyperglycemia or hyperglycemic crisis, random plasma glucose results greater than or equal to 200 mg/dL meet the criteria for diagnosis of diabetes. Reference: Standards of Medical Care in Diabetes 2016, [place] [employer]. Diabetes Care. 2016.39(Suppl 1). LAB BUN 7-21 mg/dL BUN High 36 LAB CRET 0.58-0.96 mg/dL Creatinine High 1.25 LAB NA 136-144 mmol/L Low Sodium 132 LAB K 3.7-5.1 mmol/L Potassium 3.7 LAB CL 97-105 mmol/L Low Chloride 94 LAB CO2 22-30 mmol/L Low CO2 21 LAB AGAP 9-18 mmol/L Anion Gap 17 LAB ALT 7-38 U/L ALT 32 LAB GFRAA eGFR- Amer. >60 LAB GFRNAA . eGFR-All Other Races 51 Result Comment: eGFR (Estimated GFR) Units of measure: mL/min/1.73 meters squared eGFR is derived from the reexpressed MDRD Study equation using the following parameters: serum creatinine, age, gender and race. The creatinine assay has been calibrated to be traceable to IDMO. An eGFR <60 mL/min/1.73m2 for >3 months is consistent with chronic kidney disease. Refer to KDOQI guidelines for clinical interpretation. In patients with unstable renal function, e.g. those with acute kidney injury, the eGFR may not accurately reflect actual GFR. Performed By: #### CMP, MG1, PHOS, CBC #### [facility] [address] [id number] MAGNESIUM Collected: 11/02/2017 Status: F Source: [place] 11:40 [facility] REPOSITORY TYPE CODE TESTS RESULT OUT OF REFERENCE UNITS RANGE LAB MG 1.7-2.3 mg/dL Magnesium 1.8 Performed By: #### CMP, MG1, PHOS, CBC #### [facility] [address] [address] PHOSPHORUS Collected: 11/02/2017 Status: F Source: [place] 11:40 [facility] REPOSITORY TYPE CODE TESTS RESULT OUT OF REFERENCE UNITS RANGE LAB PHOS 2.7-4.8 mg/dL Phosphorus 3.1 Performed By: #### CMP, MG1, PHOS, CBC #### [facility] [address] [place], [place] [address] CBC Collected: 11/02/2017 Status: F Source: [place] 11:40 [facility] REPOSITORY TYPE CODE TESTS RESULT OUT OF REFERENCE UNITS RANGE LAB WBC 3.70-11.00 k/uL WBC High 14.34 LAB RBC 3.90-5.20 m/uL Low RBC 2.58 LAB HGB 11.5-15.5 g/dL Low Hemoglobin 8.1 LAB HCT 36.0-46.0 % Low Hematocrit 24.7 LAB MCV 80.0-100.0 fL MCV 95.7 LAB MCH 26.0-34.0 pG MCH 31.4 LAB MCHC 30.5-36.0 g/dL MCHC 32.8 LAB RDWCV 11.5-15.0 % RDW-CV High 25.3 LAB PLTCT 150-400 k/uL Low Platelet Count 35 Result Comment: Result checked and verified No clot detected. LAB MPV 9.0-12.7 fL MPV <<DO NOT REPORT>> LAB ABSNUC <0.01 k/uL 0.11 High Absolute nRBC Performed By: #### CMP, MG1, PHOS, CBC #### [facility] [address], [place] [address] CBC Collected: 11/02/2017 Status: F Source: [place] 6:25 PM [facility] REPOSITORY TYPE CODE TESTS RESULT OUT OF REFERENCE UNITS RANGE LAB WBC 3.70-11.00 k/uL WBC High 12.84 LAB RBC 3.90-5.20 m/uL Low RBC 2.58 LAB HGB 11.5-15.5 g/dL Low Hemoglobin 8.1 LAB HCT 36.0-46.0 % Low Hematocrit 24.6 LAB MCV 80.0-100.0 fL MCV 95.3 LAB MCH 26.0-34.0 pG MCH 31.4 LAB MCHC 30.5-36.0 g/dL MCHC 32.9 LAB RDWCV 11.5-15.0 % RDW-CV High 24.9 LAB PLTCT 150-400 k/uL Low Platelet Count 16 Result Comment: Result checked and verified No clot detected. No call per procedure. 11/02/17 1906 A Makenzie LAB MPV 9.0-12.7 fL MPV <<DO NOT REPORT>> LAB ABSNUC <0.01 k/uL 0.11 High Absolute nRBC Performed By: #### CBC #### [facility] [address], [place] [id number] ALLIED HEALTH Observed: 11/02/2017 Status: COMPLETED Source: [place] 5:07 PM [facility] REPOSITORY HNO ID: [id number] Author: Negrito Kelley (Therapist) Miranda Service: Art Therapy Author Type: Therapist Type: Allied Health Filed: 11/02/2017 5:11 PM Note Text: ART THERAPY NOTE SERVICE DATE: 11/02/2017 SERVICE TIME: 4:20 Referred By: PT Reason for Referral: anxious COMMENTS: Consult was received and appreciated. Pt unavailable upon attempt as another service was bedside. Will follow up as able. SIGNATURE: Negrito Jean, [facility] PATIENT NAME: Paloma Cannon DATE: November 02, 2017 TIME: 5:08 PM PAGER/CONTACT #: [phone] CONSULT PROG Observed: 11/02/2017 Status: COMPLETED Source: [place] 2:41 PM [facility] REPOSITORY HNO ID: [id number] Author: Aj Keenan Service: Hematology Author Type: Physician Type: Consult Progress Note Filed: 11/02/2017 3:45 PM Note Text: ? [facility] DEPARTMENT OF HEMATOLOGIC ONCOLOGY AND BLOOD DISORDERS ? Hematology Consult Follow Up ? ? Patient name: Paloma Cannon : 1990 Date of Service: 11/02/2017 Supervising attending physician: Dr. Keenan ? INTERVAL HISTORY: Received 2 U of platelets in the past 24 hours Doing better this morning. Complained of left thigh numbness, neurology is going to evaluate the patient. Current hospital medications: gabapentin 300 mg cap(s) (NEURONTIN) 300 mg ORAL q 12 H carvedilol 3.125 mg tab(s) (COREG) 3.125 mg ORAL/FEEDING TUBE BID w MEALS cyclophosphamide (CYTOXAN) cap(s) 75 mg 75 mg ORAL DAILY oxyCODONE IR 10 mg tab(s) (ROXICODONE) 10 mg ORAL/FEEDING TUBE q 6 H polyethylene glycol 3350 17 g packet (MIRALAX, GLYCOLAX) 17 g ORAL/FEEDING TUBE DAILY docusate sodium 100 mg cap(s) (COLACE) 100 mg ORAL BID hydrALAZINE 10 mg injection (APRESOLINE) 10 mg INTRAVENOUS q 2 H PRN amLODIPine 10 mg tab(s) (NORVASC) 10 mg ORAL/FEEDING TUBE DAILY senna 8.6 mg tab(s) (SENOKOT) 8.6 mg ORAL/FEEDING TUBE BID pantoprazole DR 40 mg tab(s) (PROTONIX) 40 mg ORAL DAILY (6 AM) ondansetron 8 mg tab(s) (ZOFRAN) 8 mg ORAL q 8 H PRN diphenhydrAMINE 50 mg (BENADRYL) 50 mg ORAL/FEEDING TUBE q 6 H PRN sulfamethoxazole-trimethoprim 400-80 mg 2 tablet (BACTRIM,SEPTRA) 2 tablet ORAL/FEEDING TUBE - predniSONE (DELTASONE) tab(s) 80 mg 80 mg ORAL/FEEDING TUBE DAILY hydrocortisone sodium succinate (PF) 100 mg injection (Solu- CORTEF) 100 mg INTRAVENOUS q 4 H PRN HYDROmorphone WAITER/WAITRESS CABIN CLASS 0.5 mg/mL in NaCl 0.9% 100 mL INTRAVENOUS CONTINUOUS diphenhydrAMINE 50 mg injection (BENADRYL) 50 mg INTRAVENOUS q 4 H PRN NaCl 0.9% iv infusion 5-30 mL/hr INTRAVENOUS CONTINUOUS prochlorperazine 5 mg injection (COMPAZINE) 5 mg INTRAVENOUS q 6 H PRN 0.9% NaCl 2-10 mL 2-10 mL INTRAVENOUS PRN 0.9% NaCl 3-5 mL 3-5 mL INTRAVENOUS q 12 H dextrose 50% in water 25-50 mL syringe 12.5-25 g INTRAVENOUS PRN dextrose 40 % 15 g 15 g ORAL PRN glucagon 1 mg injection (GLUCAGEN) 1 mg SUBCUTANEOUS PRN acetaminophen 650 mg tab(s) (TYLENOL) 650 mg ORAL/FEEDING TUBE q 6 H PRN acetaminophen 650 mg suppository (TYLENOL) 650 mg RECTAL q 6 H PRN ? PHYSICAL EXAMINATION: General: Alert, NAD.On Nasal canula 02. HEENT: Grossly PERRLA, EOMI, anicteric Heart/CV: Grossly RRR Lungs/Resp/Chest: Normal chest wall movement. Abd: Grossly ND, no HSM, no other masses Extremities/Skin: No rashes appreciated DATA: Labs: Component WBC RBC Hemoglobin Hematocrit MCV MCH MCHC RDW- CV Platelet Count MPV Absolute nRBC Latest Ref Rng AND Units 3.70 - 11.00 k/uL 3.90 - 5.20 m/uL 11.5 - 15.5 g/dL 36.0 - 46.0 % 80.0 - 100.0 fL 26.0 - 34.0 pG 30.5 - 36.0 g/dL 11.5 - 15.0 % 150 - 400 k/uL 9.0 - 12.7 fL <0.01 k/uL 10/31/2017 19.67 (H) 2.30 (L) 7.2 (L) 21.6 (L) 93.9 31.3 33.3 23.5 (H) 30 (L) <<DO NOT REPORT>> 1.26 (H) 11/01/2017 3:02 AM 17.46 (H) 2.31 (L) 7.2 (L) 21.8 (L) 94.4 31.2 33.0 22.5 (H) 32 (L) 11.5 0.88 (H) 11/01/2017 10:07 AM 14.62 (H) 2.38 (L) 7.3 (L) 22.6 (L) 95.0 30.7 32.3 23.5 (H) 25 (L) <<DO NOT REPORT>> 0.43 (H) 11/01/2017 5:40 PM 19.92 (H) 2.58 (L) 8.0 (L) 24.3 (L) 94.2 31.0 32.9 24.2 (H) 27 (L) <<DO NOT REPORT>> 0.37 (H) 11/02/2017 1:20 AM 13.63 (H) 2.46 (L) 7.7 (L) 23.0 (L) 93.5 31.3 33.5 24.4 (H) 37 (L) 10.8 0.34 (H) 11/02/2017 6:20 AM 12.38 (H) 2.37 (L) 7.2 (L) 22.7 (L) 95.8 30.4 31.7 24.6 (H) 38 (L) 10.0 0.23 (H) 11/02/2017 11:45 AM 13.34 (H) 2.50 (L) 7.8 (L) 23.8 (L) 95.2 31.2 32.8 25.1 (H) 30 (L) <<DO NOT REPORT>> 0.20 (H) CT Abdomen/Pelvis (10/31/17) GROSSLY STABLE SIZE OF THE LARGE LEFT RETROPERITONEAL HEMATOMA. ? ?SOME NEW AREAS OF DECREASED ATTENUATION SUGGEST INTERVAL MATURATION/EVOLUTION. MILD PERSISTENT NEPHROGRAMS BILATERALLY DUE TO EITHER RENAL VEIN THROMBOSIS AND/OR RENAL DYSFUNCTION. UNCHANGED SUBCUTANEOUS EDEMA, LARGE COLLATERALS, TRACE ASCITES, AND MILD MESENTERIC STRANDING, ALL OF WHICH IS LIKELY SECONDARY TO KNOWN CHRONIC CENTRAL VENOUS THROMBOSIS. INTERVAL IMPROVEMENT IN THE BIBASILAR LUNG OPACITIES SEEN PREVIOUSLY, WITH PERSISTENT NONSPECIFIC DIFFUSE GROUNDGLASS ATTENUATION, PROBABLY EDEMA. ASSESSMENT/PLAN: 27 y/o female?with PMHx of Triple-positive Anti-phospholipid Syndrome diagnosed in 2013?(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 Recent admission 10/13/17-10/23/17 for hemoptysis and SOB, requiring intubation, was in MICU for management of DAH. Admitted to MICU again for extensive left retroperitoneal hemorrhage s/p IR guided intervention (initially on 10/23 at [facility] and 10/26 here at [facility]. ? # Antiphospholipid antibody syndrome Extensive left retroperitoneal hemorrhage likely secondary to anticoagulant. Its an unfortunate case, she needs an anticoagulation for APS but bleeding episodes prohibit it. On IHD Platelets have improved with transfusion. Peripheral smear reviewed with Dr. Keenan- Lot of nucleated RBC's, decreased platelet number. Her increased nucleated RBC's suggest stressed marrow given retroperitoneal bleed. She is still has evidence of hemolysis with elevated LDH and low haptoglobin. Given no evidence of active bleeding, we will strongly consider apheresis. Spoke to Dr. Zahra Wallace (Apheresis team), agreed with her assessment, patient is scheduled for apheresis tomorrow in the morning. - Hold off on any anticoagulation for now. - Please transfuse Platelets to keep Plt >30 K. Please check post transfusion CBC 1 hour after transfusion. - continue with Prednisone 80mg PO - Continue with cytoxan to 75 mg (per Nephro recs) - Please Transfuse for Hgb >7 and Plt > 30. ? Hematology team will follow. Pt discussed with Dr. Keenan ? Juan Christopher MD Fellow, Hematology and Medical Oncology Pager: [phone] STAFF ADDENDUM: I have reviewed the history, physical obtained and documented by the Fellow and I personally participated in all of the fernandes components. I have discussed the case and management of the patient's care with the Fellow. The following comments revise or confirm relevant fernandes components of the Fellow. She feels better today--reports being more active with PT although pain persists in the low back. Her LDH is extremely high--agree with restart of plasma exchange[place]. [phone] NUTRITION Observed: 11/02/2017 Status: COMPLETED Source: [place] 12:35 PM [facility] REPOSITORY HNO ID: [id number] Author: Edel Burton TeraDevonte Guillen Service: NST-Nutrition Support Team Author Type: Registered Dietitian Type: Nutrition Filed: 11/02/2017 12:42 PM Note Text: NUTRITION THERAPY REASSESSMENT SERVICE DATE: 11/02/2017 SERVICE TIME: 11:00 AM RECOMMENDED MALNUTRITION DIAGNOSIS: MILD PROTEIN-CALORIE MALNUTRITION In the context of Chronic Illness or Injury based on: Insufficient Energy Intake: Less than or equal to 75% energy intake compared to estimated needs for greater than or equal to 1 month Intervention: Recommend liberalizing diet to 4 gm Na+ Will d/c Mighty Shake per patient request Continue Ensure Clear TID Monitor and Evaluation: Goal: Meet >75% of estimated needs Discharge Nutrition Recommendations: Diet: 4 gm Na+ Per HPI: 27 year old female?with a PMHx for Anti-phospholipid syndrome c/b DVT/PE requiring extensive percutaneous thrombectomy of her IVC and lower extremity veins followed by b/l iliac venous stents and endograft into her IVC, on long-term anti-coagulation (recently changed to fondaparinux from coumadin on 10/13 admission)?and IVC, plasmapheresis q2 weeks, prednisone 5mg daily, DAH - on cyclophosphamide and prednisone, has had 6 episodes of respiratory decline since 2013, last admission for hemoptysis on 10/13/17, on 2 L at night and with exertion, HIT, CKD 3, 2/2 renal vein thrombosis and contrast-induced nephropathy, HFpEF, HTN, Peripheral neuropathy, post-thrombotic syndrome, and was transferred from [place] for ongoing L RP bleeding. ? Interval History: Patient reports feeling better over the past few days. Appetite improving. Didn't care for mighty shake supplements. Present Diet Order: Heart Healthy 2 gm Na Nutritional Intake Prior to Admission: <75% estimated energy needs over the past 1 month(s) Last [facility] admit 10/13 poor appetite/intakes reported. Per d/w patient today, appetite has been down since. Frequent hospitalization over the past 3 months. ? Since admit: (11/02) po intake varies per Epic documentation but ate 50- 100% x 3meals yesterday - best since admit - met ~80% est energy needs. Also drinking Ensure Clear 2-3 times per day. ? GI symptoms: none Abdominal Exam: not assessed Is the patient having any pain that is interfering with oral/enteral intake? No ANTHROPOMETRICS Height: 160 cm (5' 3) Admission Weight: 112.2 kg (247 lb 5.7 oz) Current Weight: 101.3 kg (223 lb 5.2 oz) Body mass index is 39.56 kg/(m2). Weight has fluctuated due to fluid; weight back down since admit with diuresis Last wts in Epic: 10/13/17 : 104 kg (229 lb 4.5 oz) 10/05/17 : 101.4 kg (223 lb 8 oz) 09/12/17 : 96.6 kg (213 lb) 08/21/17 : 92.7 kg (204 lb 6.4 oz) - Office visit 07/11/17 : 106.6 kg (235 lb) 04/29/17 : 114.5 kg (252 lb 6.8 oz) 02/10/17 : 105.3 kg (232 lb 2.3 oz) 01/04/17 : 117 kg (257 lb 15 oz) 10/18/2016 ?114.306 kg? Orange body weight 52.3 kg Estimated kilocalorie needs: 4304-1104?kilocalories determined by 25-30?kcal/kg ideal body weight Estimated protein needs: 78-105?grams determined by 1.5-2.0 g/kg?Orange?weight Estimated fluid needs: per MD NUTRITION FOCUSED PHYSICAL EXAM: Subcutaneous Fat Loss Orbital No fat loss Triceps Mild-Moderate Mid-axillary at the iliac crest No fat loss Muscle Loss Locations: Temporalis No muscle loss Pectoralis No muscle loss Deltoids No muscle loss Interosseous Unable to determine at this time Latissimus dorsi, trapezius Unable to determine at this time Quadriceps Unable to determine at this time Gastrocnemius Unable to determine at this time Potential micronutrient deficiency revealed in: Skin - pallor Edema: Yes Lower extremities Severe 3 - 4 Ascites: No Assessment of Functional Status: Functional capacity is unrelated to nutrition status Temperature Max in 24 hours: Temp (24hrs), Av.7 ?C (98 ?F), Min:36.4 ?C (97.6 ?F), Max:36.9 ?C (98.4 ?F) BP 158/90 Pulse 97 Temp 36.5 ?C (97.7 ?F) (Oral) Resp 23 Ht 160 cm (5' 3) Wt 101.3 kg (223 lb 5.2 oz) SpO2 98% BMI 39.56 kg/m2 Recent Labs 11/02/17 0620 11/02/17 0120 GLUC -- 93 BUN -- 27* CREAT -- 1.18* NA -- 134* K -- 3.9 CHLOR -- 95* CO2 -- 24 ALB -- 3.6* HB 7.2* 7.7* HCT 22.7* 23.0* WBC 12.38* 13.63* P -- 2.1* MG -- 2.0 Potential Signs of Inflammation: leukocytosis, hypoalbuminemia and chronic condition Current Facility-Administered Medications: carvedilol 3.125 mg tab(s) (COREG) 3.125 mg ORAL/FEEDING TUBE BID w MEALS cyclophosphamide (CYTOXAN) cap(s) 75 mg 75 mg ORAL DAILY oxyCODONE IR 10 mg tab(s) (ROXICODONE) 10 mg ORAL/FEEDING TUBE q 6 H polyethylene glycol 3350 17 g packet (MIRALAX, GLYCOLAX) 17 g ORAL/FEEDING TUBE DAILY docusate sodium 100 mg cap(s) (COLACE) 100 mg ORAL BID hydrALAZINE 10 mg injection (APRESOLINE) 10 mg INTRAVENOUS q 2 H PRN amLODIPine 10 mg tab(s) (NORVASC) 10 mg ORAL/FEEDING TUBE DAILY senna 8.6 mg tab(s) (SENOKOT) 8.6 mg ORAL/FEEDING TUBE BID pantoprazole DR 40 mg tab(s) (PROTONIX) 40 mg ORAL DAILY (6 AM) ondansetron 8 mg tab(s) (ZOFRAN) 8 mg ORAL q 8 H PRN diphenhydrAMINE 50 mg (BENADRYL) 50 mg ORAL/FEEDING TUBE q 6 H PRN sulfamethoxazole-trimethoprim 400-80 mg 2 tablet (BACTRIM,SEPTRA) 2 tablet ORAL/FEEDING TUBE predniSONE (DELTASONE) tab(s) 80 mg 80 mg ORAL/FEEDING TUBE DAILY hydrocortisone sodium succinate (PF) 100 mg injection (Solu- CORTEF) 100 mg INTRAVENOUS q 4 H PRN HYDROmorphone WAITER/WAITRESS CABIN CLASS 0.5 mg/mL in NaCl 0.9% 100 mL INTRAVENOUS CONTINUOUS diphenhydrAMINE 50 mg injection (BENADRYL) 50 mg INTRAVENOUS q 4 H PRN NaCl 0.9% iv infusion 5-30 mL/hr INTRAVENOUS CONTINUOUS prochlorperazine 5 mg injection (COMPAZINE) 5 mg INTRAVENOUS q 6 H PRN 0.9% NaCl 2-10 mL 2-10 mL INTRAVENOUS PRN 0.9% NaCl 3-5 mL 3-5 mL INTRAVENOUS q 12 H dextrose 50% in water 25-50 mL syringe 12.5-25 g INTRAVENOUS PRN dextrose 40 % 15 g 15 g ORAL PRN glucagon 1 mg injection (GLUCAGEN) 1 mg SUBCUTANEOUS PRN acetaminophen 650 mg tab(s) (TYLENOL) 650 mg ORAL/FEEDING TUBE q 6 H PRN And acetaminophen 650 mg suppository (TYLENOL) 650 mg RECTAL q 6 H PRN Surgical Incision 10/26/17 1600 Groin - Left (Active) Dressing Status Intact 11/02/2017 8:00 AM Frequency of Dressing Change As Needed 11/02/2017 8:00 AM Dressing /Treatment Type Other: See Comment 11/02/2017 8:00 AM Incision Closures None 11/02/2017 8:00 AM Drainage Description Serosanguineous 11/02/2017 8:00 AM Drainage Amount Medium 11/02/2017 8:00 AM Edges Intact 11/02/2017 8:00 AM Hematoma No 11/02/2017 8:00 AM Number of days:6 Surgical Incision 10/26/17 2047 Groin - Right (Active) Dressing Status Intact 11/02/2017 8:00 AM Frequency of Dressing Change As Needed 11/02/2017 8:00 AM Dressing /Treatment Type Other: See Comment 11/02/2017 8:00 AM Incision Closures None 11/02/2017 8:00 AM Drainage Description Serosanguineous 11/02/2017 8:00 AM Drainage Amount Small 11/02/2017 8:00 AM Edges Intact 11/02/2017 8:00 AM Hematoma No 11/02/2017 8:00 AM Number of days:6 MNT Billing Type: Re-assess/15 min 3 units SIGNATURE: Edel Guillen RD, LD, CNSC PATIENT NAME: Paloma Cannon DATE: November 02, 2017 TIME: 12:36 PM PAGER: [phone] THERAPY NT Observed: 11/02/2017 Status: COMPLETED Source: [place] 11:54 AM [facility] REPOSITORY HNO ID: [id number] Author: Brenda SanchezPtDevonte Meraz Service: Physical Therapy Author Type: Physical Therapist Type: Therapy (PT/OT/Speech/Resp) Filed: 11/02/2017 11:58 AM Note Text: Physical Therapy Treatment SERVICE DATE: 11/02/2017 SERVICE TIME: 1015 to 1054 ROOM: [place] [id number] (VAS LAB MAIN (J35 Vasc/Ultrasound)) Recommended Discharge Disposition: Acute Rehab Due to signifcant deficits affecting mobility and independence. Justification For Post Acute Needs: Anticipate that patient will require daily (5x/wk) skilled therapy in a post-acute facility setting at the time of acute hospital discharge;Willing to participate;Motivated;Anticipate patient will tolerate 3 hours of daily therapy at the time of admission to post-acute setting;Good family support Anticipated Discharge Needs: Undetermined PT Recommendations to Nursing: With assist of 1 person;Transfer to/from chair;OOB for Meals PT 6 Clicks Score: 12 Precautions/Activity Restrictions: Fall Risk;Lines/Tubes/Drains ASSESSMENT : Improvements seen with ability to tolerate sit to stand transfer x 3 trials with mod assist from raised surface. Impairments include decreased activity tolerance, strength, balance, and coordination. Patient is motivated and eager to participate in therapy session. Patient would benefit and can tolerate intense therapy to regain independence. Recommended discharge to acute rehab. Patient Disposition at Start of Session: Supine in Bed Patient Disposition at End of Session: Supine in Bed Tolerated Full Session Physical Therapy Problem List: Cognitive Deficit;Education Deficit;Decreased Activity Tolerance;Decreased Strength;Functional Mobility Impairment Patient /Caregiver Goals: Go Home Goals for Plan of Care: Rolling with: Independent Transfer supine to/from sit with: Independent Transfer sit to/from stand with: Contact Guard Assistance Ambulate with: Contact Guard Assistance Distance: 10 Device: Wheeled Walker Progress Toward Goals: Progressing as expected Rehab Potential: Excellent Based on progress towards goals PLAN: Treatment Frequency (times per week): 2 Treatment Duration (number): 2 Weeks Treatment Interventions: Education;Energy Conservation Training;Strengthening;Functional Mobility Training;Balance Training Plan of Care developed with: Patient TREATMENT INTERVENTIONS: Therapy Diagnosis: Reduced mobility-other Interventions Provided: Therapeutic Activity (40574) Therapeutic Activity (98895) Treatment Minutes: 39 3 units Skilled Intervention(s):Education on the role of PT and the importance of mobility. Bed mobility with VC for good Log roll technique and LE advancement min assist provided to achieve erect posture. Instructed in scooting at EOB with VC for weight shifting during assist per PT for anterior translation of hips to improve alignment min assist provided to achieve full foot flat positioning. Seated therex ankle pumps x 10, LAQ x 10, sit to stand transfer x 3 trials with bilateral knee block and mod assist. Max verbal and tactile cueing for glut set and forward lean. Lateral weight shifting in standing with mod assist x 30 seconds, forward and backwards weight Shift x 30 seconds. Lateral stepping with mod assist and tactile cueing for weight shift. Seated rest breaks provided to increase activity tolerance and core strength. Discussion on current level of mobility. Skilled intervention for ICU line/room setup for safe mobility environment as well as for vital sign monitoring to assess hemodynamic and respiratory response to activity to prescribe safe intensity and duration of activity/exercise during above interventions. Recommended discharge to acute rehab. Highest Level of Mobility (-HLM) This scale indicates the objective performance level this date and does not reflect clinical judgment of capability. Today the patient scored a 5 on the -HLM. Explanations are noted in the chart below. ? ? Criteria Score Walk 250+ feet 8 ? 25+ feet 7 ? 10+ steps 6 Stand > 1 minute 5 Chair Transfer to chair 4 Bed Sitting at EOB 3 ? Turning self/bed activity* 2 ? Only laying 1 *Includes PROM/AROM, bed exercises and UE/LE movement Total Timed Code Treatment Minutes: 39 Total Treatment Time (minutes): 39 FUNCTIONAL G CODE: PT 6 Clicks Score: 12 (11/02/17 1015) Mobility: Walking and Moving Around Current Status (G8978): CL (11/02/17 1015) Mobility: Walking and Moving Around Goal Status (G8979): CK (11/02/17 1015) Based on clinical assessment and the score on the 6 Clicks Functional Assessment Tool, the G code and corresponding severity modifiers are documented above. SUBJECTIVE: Current Hospital Course: Chart reviewed and no significant medical updates relevant to therapy were noted Patient Report: I feel great today! patient agreeable to PT session 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 Entry To Home: No Stairs Number Of Stairs To Bed/Bath: 0 Tub/Shower Type: walk in shower Equipment Owned: Commode-Raised;Grab Bars-Shower;Grab Bars-Toilet;Shower Chair;Home Oxygen Prior Functional Level: Required Assistance Assistance Required With: Cleaning;Laundry;Meals;Shopping;Transportation Prior Wound Care: Other: See Comment (unable to don compression stockings (I)) OBJECTIVE: CURRENT FUNCTIONAL STATUS: further mobility deferred due to concerns for patient safety and tolerance Current Functional Mobility Assist Level Additional Information Rolling Minimal Assistance Supine to Sit Minimal Assistance Sit to Supine Moderate Assistance Scooting Minimal Assistance Sit to Stand Moderate Assistance Stand to Sit Moderate Assistance Bed to Chair Moderate Assistance Toilet/Commode Gait Stairs Curb Step Car Transfer Please see discipline specific clinical documentation flowsheet for complete details for this therapy evaluation/treatment. SIGNATURE: Brenda Meraz PT PATIENT NAME: Paloma Cannon DATE: November 02, 2017 TIME: 11:54 AM PAGER/CONTACT #: [phone] CBC Collected: 11/02/2017 Status: F Source: [place] 11:45 AM [facility] REPOSITORY TYPE CODE TESTS RESULT OUT OF REFERENCE UNITS RANGE LAB WBC 3.70-11.00 k/uL WBC High 13.34 LAB RBC 3.90-5.20 m/uL Low RBC 2.50 LAB HGB 11.5-15.5 g/dL Low Hemoglobin 7.8 LAB HCT 36.0-46.0 % Low Hematocrit 23.8 LAB MCV 80.0-100.0 fL MCV 95.2 LAB MCH 26.0-34.0 pG MCH 31.2 LAB MCHC 30.5-36.0 g/dL MCHC 32.8 LAB RDWCV 11.5-15.0 % RDW-CV High 25.1 LAB PLTCT 150-400 k/uL Low Platelet Count 30 Result Comment: Result checked and verified No clot detected. LAB MPV 9.0-12.7 fL MPV <<DO NOT REPORT>> LAB ABSNUC <0.01 k/uL 0.20 High Absolute nRBC Performed By: #### CBC #### [facility] [address], [place] [address] PLAN OF CARE Observed: 11/02/2017 Status: COMPLETED Source: [place] 9:52 AM [facility] REPOSITORY HNO ID: [id number] Author: Christina Acuna Service: Neurology Author Type: Resident Type: Plan of Care Filed: 11/02/2017 10:03 AM Note Text: November 02, 2017 9:52 AM Ms. Cannon is a 27yof with a h/o HTN, CKD stage 3 2/2 renal venous thrombosis and FABY, HF rEF, APLA syndrome, DVT, PE, IVC thrombosis and bl iliac stents who comes in with CAPRICE and left sided retroperitoneal hemorrhage with mass effect s/p embolization x 2 due to increase in size of hematoma. Patient was complaining of left thigh numbness and some weakness. Given mass effect of the massive hematoma patient has signs from compression of the lumbar nerves. Patient does not have any positive symptoms - burning, tingling and is already on gabapentin. -> At this time it is very important that she receives early mobilization and senior living PT. No further intervention. -> Please feel free to call us [phone] if patient worsens. -> Given duration of symptoms low yield for EMG at this time. Will set up outpatient EMG in 3 weeks. -> Will set up outpatient followup. -> Plan discussed with Daysi García. Christina Acuna MD PGY-4 Neurology Resident [phone] November 02, 2017 9:57 AM PROGRESS Observed: 11/02/2017 Status: COMPLETED Source: [place] 8:35 AM [facility] REPOSITORY O ID: [id number] Author: Austen Choudhury Service: Critical Care Author Type: Physician Type: Progress Notes Filed: 11/02/2017 10:58 AM Note Text: SERVICE DATE: 11/02/2017 SERVICE TIME: 8:35 AM MICU PROGRESS NOTE Admission Date: 10/25/2017 Hospital Day # 8 SUBJECTIVE Interval HPI: Improved OBJECTIVE Vital Signs (last filed) Range in last 24h Temp: 36.5 ?C (97.7 ?F) (11/02/17 08) Temp Min: 36.4 ?C (97.6 ?F) Max: 36.9 ?C (98.4 ?F) Pulse: 96 (11/02/17 0800) Pulse Min: 77 Max: 113 Resp: 14 (11/02/17 0800) Resp Min: 13 Max: 31 BP: 170/81 (11/02/17 0800) BP Min: 134/67 Max: 179/90 MAP Non Invasive (Mean Arterial Pressure): 116 (11/02/17 0800) MAP Non Invasive (Mean Arterial Pressure) Min: 92 Max: 144 No Data Recorded SpO2: 97 % (11/02/17 08) SpO2 Min: 93 % Max: 100 % Pain Score: Pt. Sleeping (Do Not Use With WAITER/WAITRESS CABIN CLASS Meds) (11/02/17 0800) Fluid Balance: Intake/Output Summary (Last 24 hours) at 11/02/17 0659 Last data filed at 11/02/17 06 Gross per 24 hour Intake 1602 ml Output 3940 ml Net -2338 ml Last Weight: 101.3 kg (223 lb 5.2 oz) (11/02/17 0600) Admit Weight: 112.2 kg (247 lb 5.7 oz) (10/25/172326) DIET RENAL Lines, Drains, and Airways Line Central Line Single Lumen 10/25/17 2314 Tunneled Left Chest 7 days Dialysis / Apheresis Double Lumen 10/25/17 2314 Admission to Hospital Left Chest 7 days Peripheral 10/30/17 0745 Left Forearm 3 days Drain Indwelling Urinary Catheter 10/23/17 0520 Assessment Zuniga 10 days Vent/Oxygen: Supplemental Oxygen: NC of 2 L No Data Recorded Physical Examination Performed Oral Mucosa: Moist mucous membranes Eyes: PERRL Neck: Unremarkable; No adenopathy or JVD Cardiovascular: RRR Respiratory: Reduced breath sounds bilat Abdomen: Soft, Nontender and Positive bowel sounds Extremities: Edema- Yes 2+ generalized Peripheral Pulses- Present all extremities Capillary Refill- less than 3 seconds Skin: Abnormalities- No Breakdown- No Neurologic: Awake, oriented, Alert, Follows commands and Moving all extremities Infusion Medications HYDROmorphone WAITER/WAITRESS CABIN CLASS 0.5 mg/mL NaCl 0.9% Last Rate: 30 mL/hr (11/02/17 08) Diagnostic tests reviewed today: Most recent labs and imaging results. PATIENT CHECKLIST ? Are restraints necessary: No ? Deep vein thrombosis prophylaxis administered? No. Contraindicated. ? Stress ulcer prophylaxis? Yes ? Nasogastric tube? No ? Zuniga catheter necessary? Yes ? Is central line essential? Yes ? Plan discussed with assigned RN? Yes ? Family updated within last 24 hours? No CARE COORDINATION: Patient Summary: 27 year old female with a PMHx for Anti-phospholipid syndrome c/b DVT/PE requiring extensive percutaneous thrombectomy of her IVC and lower extremity veins followed by b/l iliac venous stents and endograft into her IVC, on long-term anti-coagulation (recently changed to fondaparinux from coumadin on 10/13 admission) and IVC, plasmapheresis q2 weeks, prednisone 5mg daily, DAH - on cyclophosphamide and prednisone, has had 6 episodes of respiratory decline since 2013, last admission for hemoptysis on 10/13/17, on 2 L at night and with exertion, HIT, CKD 3, 2/2 renal vein thrombosis and contrast-induced nephropathy, HFpEF, HTN, Peripheral neuropathy, post-thrombotic syndrome, and was transferred from [facility] for ongoing L RP bleeding. Major Interval Events: 10/26: Transferred from [facility]. Hgb down to 5.5. CTA showing active extravasation, IR embolization of left L2, L3 arteries 10/27: Hgb 6.6, continued to transfuse PRBCs, acute onset right groin pain 10/28: Hgb 6.5, additional PRBCs given, Hgb stable 7.5 after transfusion 10/29: Hgb 6.9, plt 18, transfused 1U pRBCs and 1U plts 10/30: Hgb 7.2, HDS 10/31: Hgb 6, plt 15, transfused 1U PRBCs and 1U plts 11/01: required 1U PRBCs and 1U plts overnight, repeat CBC: Hgb 7.2, plt 32 11/02: No acute events overnight. Plts >30, received IHD yesterday, SCr improving, noted to have loss of sensation in left lower extremity. Plan for Day: - Trend CBC and transfuse to Hgb>7, Plt >30 - continue PO oxycodone, wean off WAITER/WAITRESS CABIN CLASS pump - Hold anticoagulation - Monitor respiratory status - IHD - consult Neuro for left leg loss of sensation - increase Neurontin - start Coreg - DVT scan - hold apheresis until no signs of active bleeding - PT/OT - to remain in ICU - plan discussed with MICU staff ASSESSMENT AND PLAN Overview, Assessment AND Plan, all Hosp Problems Active Hospital Problems as of 11/02/2017 Noted - Resolved Hospital Right groin pain 10/27/2017 - Present Overview 10/27: C/o acute pain this morning, access site for embolization at [facility], no erythema or induration appreciated on exam, exquisitely TTP Groin study showed no signs of PSA, known AV fistula visualized with retrograde flow, vascular med aware- no further recs 10/28: pain less severe, no physical exam findings Current Assessment AND Plan PLAN: - Pedal pulse checks Q2 - Vascular med has signed off - No additional recs from vascular surgery - cont pain regimen * (Principal)Retroperitoneal hematoma 10/26/2017 - Present Overview Retroperitoneal bleed: s/p 7 units PRBCs s/p IR emobolization of left L3 artery at [facility] on 10/23 IR embolization of left L2 and L3 arteries on 10/26 CT abd/pel 10/31: RP bleed stable when compared to previous imaging from 10/27 LDH 1730, haptoglobin <10, Tbili 1.3 Per heme, thrombocytopenia and anemia likely related to cytoxan Current Assessment AND Plan Assessment: secondary to anticoagulation, likely not actively bleeding and starting to breakdown and absorb clot PLAN: - Monitor CBC and transfuse to Hgb>7, plt>30 per heme - Premedicate for transfusions - Hold anticoagulation - cyclophosphamide to 75mg - Heme following, appreciate recs - pain regimen Peripheral neuropathy 04/14/2016 - Present Current Assessment AND Plan PLAN: - Continue neurontin Moraxella catarrhalis pneumonia (HCC) 10/29/2017 - Present Current Assessment AND Plan PLAN: - Ceftriaxone (10-26-11/02) HTN (hypertension) 10/08/2015 - Present Overview Mildly decreased systolic function, diastolic function indeterminate on 10/13/17 ECHO. 10/28: Run of SBP in 200s overnight (likely d/t pain), given hydralazine however still consistently in 170s-180s 10/29: Still hypertensive, required 4 doses of hydralazine overnight Current Assessment AND Plan PLAN: - amlodipine to 10 mg daily - Hydralazine prn - cont pain regimen 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 - Present Current Assessment AND Plan PLAN: - Avoid heparin and heparin-like products 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 Alicea PLAN: - Decrease cyclophosphamide to 75mg daily per heme and nephro recs - Continue prednisone - IHD Anti-phospholipid antibody syndrome (HCC) 10/25/2017 - Present Current Assessment AND Plan PLAN: - Plasmapheresis q2 weeks (apheresis being held until no active signs of bleeding, heme will continue to assess) - Continue prednisone - Hold anticoagulation until resolution of retroperitoneal bleed - Hematology following, appreciate recs - Vascular med has signed off CAPRICE (acute kidney injury) (HCC) 10/08/2015 - Present Overview CAPRICE on CKD III, 2/2 contrast, now requiring dialysis First HD at [facility] on 10/25 with tunneled dialysis catheter placement CT Abdomen/pelvis from 10/26 showed occlusion of B/L renal veins, outflow not appreciated- could be attributing to CAPRICE and CKD Bladder scan Current Assessment AND Plan Assessment: CAPRICE on CKDIII secondary to FABY, now on dialysis PLAN: - Nephrology following - IHD - Monitor I/Os - sevelamer TID - renal diet Plan of care discussed with: Patient, ICU Team and RN SIGNATURE: Daysi García APRN.CNP PATIENT NAME: Paloma Cannon DATE: November 02, 2017 TIME: 8:35 AM PAGER/CONTACT #: [phone] DR. FRED STONE, SR. HOSPITAL STAFF PHYSICIAN NOTE OF PERSONAL INVOLVEMENT IN CARE I have reviewed the progress note?obtained and documented by the nurse practitioner?and I personally participated in the fernandes components. I have discussed the case and management of the patient's care. The following comments revise or confirm relevant fernandes components of the note. ?? 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 Transfer to MICU for retroperitoneal bleeding now s/p coiling of bleeding vessels (last embolization on 10/26/2017). IVC thrombus s/p IVC filter. Persistent abdominal pain on WAITER/WAITRESS CABIN CLASS pump. On 2 L/min of O2. Moraxella lung infection under treatment with ceftriaxone until 11/02/2017. Treated with cyclophosphamide (dose recently lowered given potential association with bicytopenia) / steroids / plasmapheresis. Persistent acute blood loss anemia. CT abdomen 10/27 showed GROSSLY STABLE SIZE OF LARGE, ACUTE/SUBACUTE LEFT RETROPERITONEAL HEMATOMA. ?NO NEW HEMATOMA IS IDENTIFIED. ?CAPRICE (contrast induced / ATN) on CVVHD. Persistent anemia despite transfusions ->?repeat CT abdomen without contrast showed stable hematoma. CAPRICE on IHD. Worsening thrombocytopenia. Requires on average 1 unit of PRBC and platelets daily. Pt has expressed that she has numbness on the left lower extremity + weakness (L4-L5 nerve distribution) -> likely related to retroperitoneal hematoma + lumbar plexus compression. Will involved neurology. ?? PLAN:?Wean O2 as tolerated. Continue oral analgesics to lower WAITER/WAITRESS CABIN CLASS pump. Pending final interpretation of peripheral blood smear. Neurology evaluation. ?? Patient/Family Updated:?Pt was updated. ?? This patient has a high probability of sudden, clinically significant deterioration, which requires the highest level of physician preparedness to intervene urgently. ?I managed/supervised life or organ supporting interventions that required frequent physician assessment. ?I devoted my full attention to the direct care of this patient for the amount of time indicated below. ?Time I spent with family or surrogate(s) is included only if the patient was incapable of providing the necessary information or participating in medical decision making. ?Time devoted to teaching and to any procedures I billed separately is not included. ?? Critical Care Documentation:?The patient has the following organ/system impairment(s): ?Acute blood loss, Acute kidney injury, Coagulopathy and Respiratory failure (Acute, with Hypoxemia) ?? Time spent providing critical care services: ?33?minutes. ?? SIGNATURE: Austen Choudhury MD [facility] PAGER:[phone] November 02, 2017 CONSULT PROG Observed: 11/02/2017 Status: COMPLETED Source: [place] 7:30 AM [facility] REPOSITORY O ID: [id number] Author: Vini Toledo MD Service: Nephrology Author Type: Physician Type: Consult Progress Note Filed: 11/02/2017 8:00 AM Note Text: CONSULT PROGRESS NOTE NEPHROLOGY SERVICE Subjective INTERVAL HISTORY: Clinically unchanged Increase in urine output noted Planned for IUF today MEDICATIONS: Current hospital medications: sodium phosphate 15 mmol in D5W 250 mL 15 mmol INTRAVENOUS ONCE cyclophosphamide (CYTOXAN) cap(s) 75 mg 75 mg ORAL DAILY oxyCODONE IR 10 mg tab(s) (ROXICODONE) 10 mg ORAL/FEEDING TUBE q 6 H polyethylene glycol 3350 17 g packet (MIRALAX, GLYCOLAX) 17 g ORAL/FEEDING TUBE DAILY gabapentin 200 mg cap(s) (NEURONTIN) 200 mg ORAL q 12 H cefTRIAXone 2 g in D5W 100 mL MB+ (ROCEPHIN) 2 g INTRAVENOUS q 24 H docusate sodium 100 mg cap(s) (COLACE) 100 mg ORAL BID hydrALAZINE 10 mg injection (APRESOLINE) 10 mg INTRAVENOUS q 2 H PRN amLODIPine 10 mg tab(s) (NORVASC) 10 mg ORAL/FEEDING TUBE DAILY senna 8.6 mg tab(s) (SENOKOT) 8.6 mg ORAL/FEEDING TUBE BID pantoprazole DR 40 mg tab(s) (PROTONIX) 40 mg ORAL DAILY (6 AM) ondansetron 8 mg tab(s) (ZOFRAN) 8 mg ORAL q 8 H PRN diphenhydrAMINE 50 mg (BENADRYL) 50 mg ORAL/FEEDING TUBE q 6 H PRN sulfamethoxazole-trimethoprim 400-80 mg 2 tablet (BACTRIM,SEPTRA) 2 tablet ORAL/FEEDING TUBE MO-WE- predniSONE (DELTASONE) tab(s) 80 mg 80 mg ORAL/FEEDING TUBE DAILY hydrocortisone sodium succinate (PF) 100 mg injection (Solu- CORTEF) 100 mg INTRAVENOUS q 4 H PRN HYDROmorphone WAITER/WAITRESS CABIN CLASS 0.5 mg/mL in NaCl 0.9% 100 mL INTRAVENOUS CONTINUOUS diphenhydrAMINE 50 mg injection (BENADRYL) 50 mg INTRAVENOUS q 4 H PRN NaCl 0.9% iv infusion 5-30 mL/hr INTRAVENOUS CONTINUOUS prochlorperazine 5 mg injection (COMPAZINE) 5 mg INTRAVENOUS q 6 H PRN 0.9% NaCl 2-10 mL 2-10 mL INTRAVENOUS PRN sodium citrate 4% 3-6 mL catheter lock 3-6 mL INTRALUMINAL PRN phosphorus 500 mg tab(s) (K PHOS NEUTRAL) 500 mg ORAL/FEEDING TUBE PRN sodium phosphate 15 mmol in D5W 250 mL 15 mmol INTRAVENOUS PRN sodium phosphate 30 mmol in D5W 250 mL 30 mmol INTRAVENOUS PRN sodium phosphate 45 mmol in D5W 250 mL 45 mmol INTRAVENOUS PRN 0.9% NaCl 3-5 mL 3-5 mL INTRAVENOUS q 12 H dextrose 50% in water 25-50 mL syringe 12.5-25 g INTRAVENOUS PRN dextrose 40 % 15 g 15 g ORAL PRN glucagon 1 mg injection (GLUCAGEN) 1 mg SUBCUTANEOUS PRN acetaminophen 650 mg tab(s) (TYLENOL) 650 mg ORAL/FEEDING TUBE q 6 H PRN acetaminophen 650 mg suppository (TYLENOL) 650 mg RECTAL q 6 H PRN Objective PHYSICAL EXAM: BP 169/85 Pulse 93 Temp 36.6 ?C (97.9 ?F) (Axillary) Resp 20 Ht 160 cm (5' 3) Wt 101.3 kg (223 lb 5.2 oz) SpO2 95% BMI 39.56 kg/m2 Intake/Output Summary (Last 24 hours) at 11/02/17 0730 Last data filed at 11/02/17 0700 Gross per 24 hour Intake 2469 ml Output 3960 ml Net -1491 ml Constitutional: No acute distress and Responsive Neck: Trachea midline No jugular venous distension Cardiovascular: Regular rate and ryhthm, normal S1 and S2, no murmurs, rubs, or gallops +3 edema (LE wrapped) Respiratory: Normal respiratory effort. Abdomen: Soft, non-tender, non-distended. Normal bowel sounds. No hepatosplenomegaly. Psychiatric: Alert and oriented x self, place, time, and setting Normal mood/affect Vascular Access: Hemodialysis catheter location: Left Tunneled internal jugular. Exit site demonstrates: normal findings DATA: Diagnostic tests reviewed for today's visit: Most recent labs and imaging results. Recent Labs 11/02/17 0120 11/01/17 0302 10/30/17 2338 10/29/17 2335 10/28/17 2352 NA 134* 132* 131* 132* 133* K 3.9 4.0 4.5 4.4 4.6 CHLOR 95* 91* 93* 95* 93* CO2 24 21* 23 25 24 BUN 27* 43* 28* 25* 26* CREAT 1.18* 1.89* 1.39* 1.25* 1.31* GLUC 93 124* 107* 115* 91 ANION 15 20* 15 12 16 CA 8.4* 8.1* 9.0 9.3 8.7 P 2.1* 3.0 3.2 2.8 3.4 MG 2.0 1.7 2.0 2.2 1.9 Recent Labs 11/02/17 0620 11/02/17 0120 11/01/17 1740 WBC 12.38* 13.63* 19.92* HB 7.2* 7.7* 8.0* HCT 22.7* 23.0* 24.3* PLT 38* 37* 27* No results for input(s): INR, APTT in the last 168 hours. Recent Labs 10/24/17 0500 10/15/17 1223 10/13/17 1846 COLOR Straw* Yellow Red* CLARITY Hazy* Cloudy* Cloudy* UGLUC 150* Negative Negative UBILI Negative Negative 1+* UKET Negative Negative Negative SPGR 1.009 1.019 >1.030* UHB Large* 1+* 3+* UPH 9.0* 5.0 6.0 UPROT 100* 30* >=300* NITRITES Negative Negative Positive* LEUKEST Negative 1+* 2+* UWBC Negative 0-5 6-10* URBC Many* 3-5* >25* No results for input(s): PH, PCO2, PO2, LACT in the last 168 hours. Recent Labs 10/29/17 2335 10/20/17 0415 06/09/17 1024 ALLA -- -- 156.0 -- 363.9* TRANSFERSAT -- -- 9* -- 12* B12 -- -- -- -- 646 HB 7.6* < > 8.9* < > -- < > = values in this interval not displayed. Recent Labs 10/29/17 2335 10/26/17 0020 CA 9.3 < > 8.0* P 2.8 < > 8.4* ALB -- -- 3.2* < > = values in this interval not displayed. Recent Labs 11/02/17 0120 11/01/17 0302 TBILI 1.6* 1.3 ALT 37 43* AST 45* 53* ALKPHOS 75 70 Assessment/Plan 27 year old female with history of HTN CKD stage 3 sec to renal vein thrombosis and FABY (baseline Cr 1.2 to 1.5), HFrEF (EF 47%) , APLA syndrome , DVT , PE , IVC thrombosis s/p bilateral iliac stents and endograft to IVC (on AC and PLEX Q 2 weekly) , DAH (cytoxan). [facility]red from [facility] where she presented with CAPRICE in the setting of retroperioneal hemorrhage with mass effect on L kidney s/p embolization on 10/23 .Nephrology consulted for CAPRICE 1. 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 Serological work up : low c3 and c4 Improvement in urine output noted . May be showing signs of recovery . Planned for IUF today 2.Anemia and thrombocytopenia -concern for Micro angiopathic hemolytic anemia hapto <10 , LDH 1730 , few RBC fragments seen Associated problems -Electrolytes: Hyponatremia , hypophosphatemia - Volume status: hypervolemic -.Acid-base: within normal limits - Anemia and thrombocytopenia -?myelopsupression in the setting of cytoxan use -HTN -?Page kidney Active diagnoses Retroperitoneal hematoma Acute blood loss anemia HTN APLA syndrome Moraxella Pneumonia PLAN -IUF today goal of 2 to 2.5L -Will assess for PAINT COATING MACHINE OPERATOR needs on a daily basis -Next treatment on Monday - Strict I/O's - Renal diet - Dose medications for eGFR <10 mL/min Consent for PAINT COATING MACHINE OPERATOR: PAINT COATING MACHINE OPERATOR initiation date: 10/26/17 Consent obtained and in EMR. Will discuss with staff SIGNATURE: Laya Peters MD PATIENT NAME: Paloma Cannon DATE: November 02, 2017 TIME: 7:37 AM PAGER: [phone] TEACHING PHYSICIAN NOTE OF PERSONAL INVOLVEMENT IN CARE I have reviewed the Progress Note obtained and documented by Dr. Peters and I personally participated in the fernandes components. I have discussed the case and management of the patient's care and I agree with the formulated assessment and plan. In addition to above note: Dialysis prescription reviewed and confirmed - IUF with 2- 2.5L goal fluid removal - continuing daily dialysis/IUF. Vini Toledo MD, FASN - Pager [phone] November 02, 2017 @ 7:59 AM CBC Collected: 11/02/2017 Status: F Source: [place] 6:20 AM [facility] REPOSITORY TYPE CODE TESTS RESULT OUT OF REFERENCE UNITS RANGE LAB WBC 3.70-11.00 k/uL WBC High 12.38 LAB RBC 3.90-5.20 m/uL Low RBC 2.37 LAB HGB 11.5-15.5 g/dL Low Hemoglobin 7.2 LAB HCT 36.0-46.0 % Low Hematocrit 22.7 LAB MCV 80.0-100.0 fL MCV 95.8 LAB MCH 26.0-34.0 pG MCH 30.4 LAB MCHC 30.5-36.0 g/dL MCHC 31.7 LAB RDWCV 11.5-15.0 % RDW-CV High 24.6 LAB PLTCT 150-400 k/uL Low Platelet Count 38 Result Comment: No clot detected. LAB MPV 9.0-12.7 fL MPV 10.0 LAB ABSNUC <0.01 k/uL High Absolute nRBC 0.23 Performed By: #### CBC #### [id number] [place], [place] [address] CBC Collected: 11/02/2017 Status: F Source: [place] 1:20 AM [facility] REPOSITORY TYPE CODE TESTS RESULT OUT OF REFERENCE UNITS RANGE LAB WBC 3.70-11.00 k/uL WBC High 13.63 LAB RBC 3.90-5.20 m/uL Low RBC 2.46 LAB HGB 11.5-15.5 g/dL Low Hemoglobin 7.7 LAB HCT 36.0-46.0 % Low Hematocrit 23.0 LAB MCV 80.0-100.0 fL MCV 93.5 LAB MCH 26.0-34.0 pG MCH 31.3 LAB MCHC 30.5-36.0 g/dL MCHC 33.5 LAB RDWCV 11.5-15.0 % RDW-CV High 24.4 LAB PLTCT 150-400 k/uL Low Platelet Count 37 Result Comment: Result checked and verified No clot detected. LAB MPV 9.0-12.7 fL MPV 10.8 LAB ABSNUC <0.01 k/uL High Absolute nRBC 0.34 Performed By: #### CBC, CMP, MG1, PHOS #### [facility] [id number] COMP METABOLIC PANEL Collected: 11/02/2017 Status: F Source: [place] 1:20 AM [facility] REPOSITORY TYPE CODE TESTS RESULT OUT OF REFERENCE UNITS RANGE LAB TP 6.3-8.0 g/dL Low Protein, Total 6.0 LAB ALB 3.9-4.9 g/dL Low Albumin 3.6 LAB CA 8.5-10.2 mg/dL Low Calcium, Total 8.4 LAB TBIL 0.2-1.3 mg/dL Bilirubin, High Total 1.6 LAB ALKP 32-117 U/L Alkaline Phosphatase 75 LAB AST 13-35 U/L AST High 45 LAB GLU 74-99 mg/dL Glucose 93 Result Comment: The [place] [employer] (ADA) provides guidance for cutoff values for fasting glucose and random glucose. The ADA defines fasting as no caloric intake for at least 8 hours. Fas ting plasma glucose results between 100 to 125 mg/dL indicate increased risk for diabetes (prediabetes). Fasting plasma glucose results greater than or equal to 126 mg/dL meet the criteria for diagnosis of diabetes. In the absence of unequivocal hyperglycemia, results should be confirmed by repeat testing. In a patient with classic symptoms of hyperglycemia or hyperglycemic crisis, random plasma glucose results greater than or equal to 200 mg/dL meet the criteria for diagnosis of diabetes. Reference: Standards of Medical Care in Diabetes 2016, [place] [employer]. Diabetes Care. 2016.39(Suppl 1). LAB BUN 7-21 mg/dL BUN High 27 LAB CRET 0.58-0.96 mg/dL Creatinine High 1.18 LAB NA 136-144 mmol/L Low Sodium 134 LAB K 3.7-5.1 mmol/L Potassium 3.9 LAB CL 97-105 mmol/L Low Chloride 95 LAB CO2 22-30 mmol/L CO2 24 LAB AGAP 9-18 mmol/L Anion Gap 15 LAB ALT 7-38 U/L ALT 37 LAB GFRAA eGFR- Amer. >60 LAB GFRNAA . eGFR-All Other Races 55 Result Comment: eGFR (Estimated GFR) Units of measure: mL/min/1.73 meters squared eGFR is derived from the reexpressed MDRD Study equation using the following parameters: serum creatinine, age, gender and race. The creatinine assay has been calibrated to be traceable to IDMS. An eGFR <60 mL/min/1.73m2 for >3 months is consistent with chronic kidney disease. Refer to KDOQI guidelines for clinical interpretation. In patients with unstable renal function, e.g. those with acute kidney injury, the eGFR may not accurately reflect actual GFR. Performed By: #### CBC, CMP, MG1, PHOS #### [facility] [address] [place], [place] [address] MAGNESIUM Collected: 11/02/2017 Status: F Source: [place] 1:20 AM [facility] REPOSITORY TYPE CODE TESTS RESULT OUT OF REFERENCE UNITS RANGE LAB MG 1.7-2.3 mg/dL Magnesium 2.0 Performed By: #### CBC, CMP, MG1, PHOS #### [facility] [address] [place], [place] [address] PHOSPHORUS Collected: 11/02/2017 Status: F Source: [place] 1:20 AM [facility] REPOSITORY TYPE CODE TESTS RESULT OUT OF REFERENCE UNITS RANGE LAB PHOS 2.7-4.8 mg/dL Low Phosphorus 2.1 Performed By: #### CBC, CMP, MG1, PHOS #### [facility] [address] [place], [place] [address] CBC Collected: 11/01/2017 Status: F Source: [place] 5:40 PM [facility] REPOSITORY TYPE CODE TESTS RESULT OUT OF REFERENCE UNITS RANGE LAB WBC 3.70-11.00 k/uL WBC High 19.92 LAB RBC 3.90-5.20 m/uL Low RBC 2.58 LAB HGB 11.5-15.5 g/dL Low Hemoglobin 8.0 LAB HCT 36.0-46.0 % Low Hematocrit 24.3 LAB MCV 80.0-100.0 fL MCV 94.2 LAB MCH 26.0-34.0 pG MCH 31.0 LAB MCHC 30.5-36.0 g/dL MCHC 32.9 LAB RDWCV 11.5-15.0 % RDW-CV High 24.2 LAB PLTCT 150-400 k/uL Low Platelet Count 27 Result Comment: Result checked and verified No clot detected. LAB MPV 9.0-12.7 fL MPV <<DO NOT REPORT>> LAB ABSNUC <0.01 k/uL 0.37 High Absolute nRBC Performed By: #### CBC #### [facility] [address], [place] [address] BUN, POST DIALYSIS Collected: 11/01/2017 Status: F Source: [place] 5:02 PM [facility] REPOSITORY TYPE CODE TESTS RESULT OUT OF REFERENCE UNITS RANGE LAB BUNPO 7-21 mg/dL BUN, Post Dialysis 17 LAB BUNRAT % Urea Reduction Ratio 62 Performed By: #### BUNPO1 #### [facility] [address], [place] [address] BUN, PRE DIALYSIS Collected: 11/01/2017 Status: F Source: [place] 1:19 PM [facility] REPOSITORY TYPE CODE TESTS RESULT OUT OF REFERENCE UNITS RANGE LAB BUNPR 7-21 mg/dL High BUN, Pre 45 Dialysis Performed By: #### BUNPR #### [facility] [address] [place] [id number] PROGRESS Observed: 11/01/2017 Status: COMPLETED Source: [place] 10:55 AM [facility] REPOSITORY HNO ID: [id number] Author: Christine Walker (Pa) Service: Critical Care Author Type: Physician Satellite Tv Technician Installer Type: Progress Notes Filed: 11/01/2017 10:57 AM Note Text: SERVICE DATE: 11/01/2017 SERVICE TIME: 10:55 AM MICU PROGRESS NOTE Admission Date: 10/25/2017 Hospital Day # 7 SUBJECTIVE Interval HPI: No Change, required 1U PRBCs and 1U plts overnight OBJECTIVE Vital Signs (last filed) Range in last 24h Temp: 36.7 ?C (98.1 ?F) (11/01/17 0800) Temp Min: 36.7 ?C (98.1 ?F) Max: 37.8 ?C (100 ?F) Pulse: 110 (11/01/17 0900) Pulse Min: 75 Max: 113 Resp: (!) 31 (11/01/17 09) Resp Min: 12 Max: 31 BP: 169/85 (11/01/17 0800) BP Min: 130/69 Max: 169/85 MAP Non Invasive (Mean Arterial Pressure): 118 (11/01/17 0800) MAP Non Invasive (Mean Arterial Pressure) Min: 90 Max: 122 No Data Recorded SpO2: 98 % (11/01/17 0900) SpO2 Min: 92 % Max: 99 % Pain Score: 0/10 (11/01/17 0853) Fluid Balance: Intake/Output Summary (Last 24 hours) at 11/01/17 0659 Last data filed at 11/01/17 06 Gross per 24 hour Intake 2165 ml Output 3745 ml Net -1580 ml Last Weight: 102.8 kg (226 lb 10.1 oz) (11/01/17 06) Admit Weight: 112.2 kg (247 lb 5.7 oz) (10/25/172326) DIET RENAL Lines, Drains, and Airways Line Central Line Single Lumen 10/25/174 Tunneled Left Chest 6 days Dialysis / Apheresis Double Lumen 10/25/174 Admission to Hospital Left Chest 6 days Peripheral 10/30/17 0745 Left Forearm 2 days Drain Indwelling Urinary Catheter 10/23/17 0520 Assessment Zuniga 9 days Vent/Oxygen: Supplemental Oxygen: Yes. FiO2 2L NC No Data Recorded Physical Examination Performed Oral Mucosa: Moist mucous membranes Eyes: PERRLA Neck: Unremarkable; No adenopathy or JVD Cardiovascular: Regular rhythm Respiratory: Clear to auscultation Abdomen: Soft, Nontender and Positive bowel sounds Extremities: Edema- Yes, 2+ pitting BLE Peripheral Pulses- Present all extremities Skin: Abnormalities- No Breakdown- No Neurologic: Awake, oriented, Alert, Follows commands and Moving all extremities Infusion Medications HYDROmorphone WAITER/WAITRESS CABIN CLASS 0.5 mg/mL NaCl 0.9% Last Rate: 10 mL/hr (10/29/17 0000) Diagnostic tests reviewed today: Most recent labs and imaging results. PATIENT CHECKLIST ? Are restraints necessary: No ? Deep vein thrombosis prophylaxis administered? No. Contraindicated. ? Stress ulcer prophylaxis? Yes ? Nasogastric tube? No ? Zuniga catheter necessary? Yes ? Is central line essential? No ? Plan discussed with assigned RN? Yes ? Family updated within last 24 hours? Yes CARE COORDINATION: Patient Summary: 27 year old female with a PMHx significant for: - Anti-phospholipid syndrome c/b DVT/PE requiring extensive percutaneous thrombectomy of her IVC and lower extremity veins followed by b/l iliac venous stents and endograft into her IVC, on long-term anti-coagulation (recently changed to fondaparinux from coumadin on 10/13 admission) and IVC, plasmapheresis q2 weeks, prednisone 5mg daily - DAH - on cyclophosphamide and prednisone, has had 6 episodes of respiratory decline since 2013, last admission for hemoptysis on 10/13/17, on 2 L at night and with exertion - HIT - CKD 3, 2/2 renal vein thrombosis and contrast-induced nephropathy - HFpEF - HTN - Peripheral neuropathy - post-thrombotic syndrome Transferred from [place] for ongoing L RP bleeding. Major Interval Events: 10/26: Transferred from [place]. Hgb down to 5.5. CTA showing active extravasation, IR embolization of left L2, L3 arteries 10/27: Hgb 6.6, continued to transfuse PRBCs, acute onset right groin pain 10/28: Hgb 6.5, additional PRBCs given, Hgb stable 7.5 after transfusion 10/29: Hgb 6.9, plt 18, transfused 1U pRBCs and 1U plts 10/30: Hgb 7.2, HDS 10/31: Hgb 6, plt 15, transfused 1U PRBCs and 1U plts 11/01: required 1U PRBCs and 1U plts overnight, repeat CBC: Hgb 7.2, plt 32 Plan for Day: - Trend CBC and transfuse to Hgb>7, Plt >30 - Start PO oxycodone, wean off WAITER/WAITRESS CABIN CLASS pump - Hold anticoagulation - Monitor respiratory status - IHD - hold apheresis until no signs of active bleeding - PT/OT ASSESSMENT AND PLAN Overview, Assessment AND Plan, all Hosp Problems Active Hospital Problems as of 11/01/2017 Noted - Resolved 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 Alicea PLAN: - Decrease cyclophosphamide to 75mg daily per heme and nephro recs - Continue prednisone - IHD HTN (hypertension) 10/08/2015 - Present Overview Mildly decreased systolic function, diastolic function indeterminate on 10/13/17 ECHO. 10/28: Run of SBP in 200s overnight (likely d/t pain), given hydralazine however still consistently in 170s-180s 10/29: Still hypertensive, required 4 doses of hydralazine overnight Current Assessment AND Plan PLAN: - amlodipine to 10 mg daily - Hydralazine prn - cont pain regimen CAPRICE (acute kidney injury) (HCC) 10/08/2015 - Present Overview CAPRICE on CKD III, 2/2 contrast, now requiring dialysis First HD at [facility] on 10/25 with tunneled dialysis catheter placement CT Abdomen/pelvis from 10/26 showed occlusion of B/L renal veins, outflow not appreciated- could be attributing to CAPRICE and CKD Bladder scan Current Assessment AND Plan Assessment: CAPRICE on CKDIII secondary to FABY, now on dialysis PLAN: - Nephrology following - IHD - Monitor I/Os - sevelamer TID - renal diet 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 - Present Current Assessment AND Plan PLAN: - Avoid heparin and heparin-like products Peripheral neuropathy 04/14/2016 - Present Current Assessment AND Plan PLAN: - Continue neurontin Anti-phospholipid antibody syndrome (HCC) 10/25/2017 - Present Current Assessment AND Plan PLAN: - Plasmapheresis q2 weeks (apheresis being held until no active signs of bleeding, heme will continue to assess) - Continue prednisone - Hold anticoagulation until resolution of retroperitoneal bleed - Hematology following, appreciate recs - Vascular med has signed off * (Principal)Retroperitoneal hematoma 10/26/2017 - Present Overview Retroperitoneal bleed: s/p 7 units PRBCs s/p IR emobolization of left L3 artery at [facility] on 10/23 IR embolization of left L2 and L3 arteries on 10/26 CT abd/pel 10/31: RP bleed stable when compared to previous imaging from 10/27 LDH 1730, haptoglobin <10, Tbili 1.3 Per heme, thrombocytopenia and anemia likely related to cytoxan Current Assessment AND Plan Assessment: secondary to anticoagulation, likely not actively bleeding and starting to breakdown and absorb clot PLAN: - Monitor CBC and transfuse to Hgb>7, plt>30 per heme - Premedicate for transfusions - Hold anticoagulation - decrease cyclophosphamide to 75mg - Heme following, appreciate recs - pain regimen Right groin pain 10/27/2017 - Present Overview 10/27: C/o acute pain this morning, access site for embolization at [facility], no erythema or induration appreciated on exam, exquisitely TTP Groin study showed no signs of PSA, known AV fistula visualized with retrograde flow, vascular med aware- no further recs 10/28: pain less severe, no physical exam findings Current Assessment AND Plan PLAN: - Pedal pulse checks Q2 - Vascular med has signed off - No additional recs from vascular surgery - cont pain regimen Moraxella catarrhalis pneumonia ([facility]) 10/29/2017 - Present Current Assessment AND Plan PLAN: - Ceftriaxone (10-26-11/02) Plan of care discussed with: Patient and ICU Team SIGNATURE: Christine Walker PA-C PATIENT NAME: Paloma Cannon DATE: November 01, 2017 TIME: 10:55 AM PAGER/CONTACT #: [phone] TYPE AND SCREEN Collected: 11/01/2017 Status: F Source: [place] 10:25 AM [facility] REPOSITORY TYPE CODE TESTS RESULT OUT OF REFERENCE UNITS RANGE LAB %ABR B ABO/RH(D) POSITIVE LAB % Antibody POS Screen Performed By: #### TSCR #### [facility] [address] [place], [place] [address] CBC Collected: 11/01/2017 Status: F Source: [place] 10:07 AM [facility] REPOSITORY TYPE CODE TESTS RESULT OUT OF REFERENCE UNITS RANGE LAB WBC 3.70-11.00 k/uL WBC High 14.62 LAB RBC 3.90-5.20 m/uL Low RBC 2.38 LAB HGB 11.5-15.5 g/dL Low Hemoglobin 7.3 LAB HCT 36.0-46.0 % Low Hematocrit 22.6 LAB MCV 80.0-100.0 fL MCV 95.0 LAB MCH 26.0-34.0 pG MCH 30.7 LAB MCHC 30.5-36.0 g/dL MCHC 32.3 LAB RDWCV 11.5-15.0 % RDW-CV High 23.5 LAB PLTCT 150-400 k/uL Low Platelet Count 25 Result Comment: Result checked and verified No clot detected. LAB MPV 9.0-12.7 fL MPV <<DO NOT REPORT>> LAB ABSNUC <0.01 k/uL 0.43 High Absolute nRBC Performed By: #### CBC #### [facility] [address], [place] [address] CONSULT PROG Observed: 11/01/2017 Status: COMPLETED Source: [place] 9:50 AM [facility] REPOSITORY HNO ID: [id number] Author: Aj Keenan Service: Hematology Author Type: Physician Type: Consult Progress Note Filed: 11/01/2017 5:04 PM Note Text: ? [facility] DEPARTMENT OF HEMATOLOGIC ONCOLOGY AND BLOOD DISORDERS ? Hematology Consult Follow Up ? ? Patient name: Paloma Cannon : 1990 Date of Service: 10/30/2017 Supervising attending physician: Dr. Keenan ? INTERVAL HISTORY: CT A/P without IV contrast done yesterday showed grossly stable size of large hematoma. No new hematoma identified. Received 2U of PRBC and 2 U of platelets in the past 24 hours Current hospital medications: oxyCODONE IR 10 mg tab(s) (ROXICODONE) 10 mg ORAL/FEEDING TUBE q 6 H polyethylene glycol 3350 17 g packet (MIRALAX, GLYCOLAX) 17 g ORAL/FEEDING TUBE DAILY gabapentin 200 mg cap(s) (NEURONTIN) 200 mg ORAL q 12 H cefTRIAXone 2 g in D5W 100 mL MB+ (ROCEPHIN) 2 g INTRAVENOUS q 24 H docusate sodium 100 mg cap(s) (COLACE) 100 mg ORAL BID hydrALAZINE 10 mg injection (APRESOLINE) 10 mg INTRAVENOUS q 2 H PRN cyclophosphamide 150 mg cap(s) (CYTOXAN) 150 mg ORAL DAILY amLODIPine 10 mg tab(s) (NORVASC) 10 mg ORAL/FEEDING TUBE DAILY senna 8.6 mg tab(s) (SENOKOT) 8.6 mg ORAL/FEEDING TUBE BID pantoprazole DR 40 mg tab(s) (PROTONIX) 40 mg ORAL DAILY (6 AM) ondansetron 8 mg tab(s) (ZOFRAN) 8 mg ORAL q 8 H PRN diphenhydrAMINE 50 mg (BENADRYL) 50 mg ORAL/FEEDING TUBE q 6 H PRN sulfamethoxazole-trimethoprim 400-80 mg 2 tablet (BACTRIM,SEPTRA) 2 tablet ORAL/FEEDING TUBE MO-WE- predniSONE (DELTASONE) tab(s) 80 mg 80 mg ORAL/FEEDING TUBE DAILY hydrocortisone sodium succinate (PF) 100 mg injection (Solu- CORTEF) 100 mg INTRAVENOUS q 4 H PRN HYDROmorphone WAITER/WAITRESS CABIN CLASS 0.5 mg/mL in NaCl 0.9% 100 mL INTRAVENOUS CONTINUOUS diphenhydrAMINE 50 mg injection (BENADRYL) 50 mg INTRAVENOUS q 4 H PRN NaCl 0.9% iv infusion 5-30 mL/hr INTRAVENOUS CONTINUOUS prochlorperazine 5 mg injection (COMPAZINE) 5 mg INTRAVENOUS q 6 H PRN 0.9% NaCl 2-10 mL 2-10 mL INTRAVENOUS PRN sodium citrate 4% 3-6 mL catheter lock 3-6 mL INTRALUMINAL PRN phosphorus 500 mg tab(s) (K PHOS NEUTRAL) 500 mg ORAL/FEEDING TUBE PRN sodium phosphate 15 mmol in D5W 250 mL 15 mmol INTRAVENOUS PRN sodium phosphate 30 mmol in D5W 250 mL 30 mmol INTRAVENOUS PRN sodium phosphate 45 mmol in D5W 250 mL 45 mmol INTRAVENOUS PRN 0.9% NaCl 3-5 mL 3-5 mL INTRAVENOUS q 12 H dextrose 50% in water 25-50 mL syringe 12.5-25 g INTRAVENOUS PRN dextrose 40 % 15 g 15 g ORAL PRN glucagon 1 mg injection (GLUCAGEN) 1 mg SUBCUTANEOUS PRN acetaminophen 650 mg tab(s) (TYLENOL) 650 mg ORAL/FEEDING TUBE q 6 H PRN acetaminophen 650 mg suppository (TYLENOL) 650 mg RECTAL q 6 H PRN ? PHYSICAL EXAMINATION: General: Alert, NAD.On Nasal canula 02. HEENT: Grossly PERRLA, EOMI, anicteric Heart/CV: Grossly RRR Lungs/Resp/Chest: Normal chest wall movement. Abd: Grossly ND, no HSM, no other masses Extremities/Skin: No rashes appreciated DATA: Labs: Component WBC RBC Hemoglobin Hematocrit MCV MCH MCHC RDW- CV Platelet Count MPV Absolute nRBC Latest Ref Rng AND Units 3.70 - 11.00 k/uL 3.90 - 5.20 m/uL 11.5 - 15.5 g/dL 36.0 - 46.0 % 80.0 - 100.0 fL 26.0 - 34.0 pG 30.5 - 36.0 g/dL 11.5 - 15.0 % 150 - 400 k/uL 9.0 - 12.7 fL <0.01 k/uL 10/29/2017 11:50 AM 13.78 (H) 2.21 (L) 6.7 (L) 20.8 (L) 94.1 30.3 32.2 18.7 (H) 16 (L) <<DO NOT REPORT>> 1.18 (H) 10/29/2017 6:52 PM 16.64 (H) 2.44 (L) 7.3 (L) 22.4 (L) 91.8 29.9 32.6 19.1 (H) 17 (L) <<DO NOT REPORT>> 1.36 (H) 10/29/2017 11:35 PM 17.31 (H) 2.51 (L) 7.6 (L) 23.0 (L) 91.6 30.3 33.0 20.2 (H) 18 (L) <<DO NOT REPORT>> 1.72 (H) 10/30/2017 6:50 PM 18.60 (H) 2.18 (L) 6.8 (L) 20.8 (L) 95.4 31.2 32.7 23.1 (H) 14 (L) <<DO NOT REPORT>> 1.35 (H) 10/30/2017 11:38 PM 17.82 (H) 1.99 (L) 6.0 (L) 18.8 (L) 94.5 30.2 31.9 24.0 (H) 15 (L) <<DO NOT REPORT>> 1.33 (H) 10/31/2017 19.67 (H) 2.30 (L) 7.2 (L) 21.6 (L) 93.9 31.3 33.3 23.5 (H) 30 (L) <<DO NOT REPORT>> 1.26 (H) 11/01/2017 17.46 (H) 2.31 (L) 7.2 (L) 21.8 (L) 94.4 31.2 33.0 22.5 (H) 32 (L) 11.5 0.88 (H) Component Fondaparinux Latest Ref Rng AND Units 0.00 mg/L 10/16/2017 1.07 (H) 10/18/2017 1.69 (H) 10/20/2017 2.28 (H) 10/26/2017 0.94 (H) 10/27/2017 0.67 (H) CT Abdomen/Pelvis (10/31/17) GROSSLY STABLE SIZE OF THE LARGE LEFT RETROPERITONEAL HEMATOMA. ? ?SOME NEW AREAS OF DECREASED ATTENUATION SUGGEST INTERVAL MATURATION/EVOLUTION. MILD PERSISTENT NEPHROGRAMS BILATERALLY DUE TO EITHER RENAL VEIN THROMBOSIS AND/OR RENAL DYSFUNCTION. UNCHANGED SUBCUTANEOUS EDEMA, LARGE COLLATERALS, TRACE ASCITES, AND MILD MESENTERIC STRANDING, ALL OF WHICH IS LIKELY SECONDARY TO KNOWN CHRONIC CENTRAL VENOUS THROMBOSIS. INTERVAL IMPROVEMENT IN THE BIBASILAR LUNG OPACITIES SEEN PREVIOUSLY, WITH PERSISTENT NONSPECIFIC DIFFUSE GROUNDGLASS ATTENUATION, PROBABLY EDEMA. ASSESSMENT/PLAN: 27 y/o female?with PMHx of Triple-positive Anti-phospholipid Syndrome diagnosed in 2013?(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 Recent admission 10/13/17-10/23/17 for hemoptysis and SOB, requiring intubation, was in MICU for management of DAH. Admitted to MICU again for extensive left retroperitoneal hemorrhage s/p IR guided intervention (initially on 10/23 at [facility] and 10/26 here at [facility]. ? # Antiphospholipid antibody syndrome Extensive left retroperitoneal hemorrhage likely secondary to anticoagulant. Its an unfortunate case, she needs an anticoagulation for APS but bleeding episodes prohibit it. On IHD Platelets have improved with transfusion. Peripheral smear reviewed with Dr. Keenan- Lot of nucleated RBC's, decreased platelet number. Her increased nucleated RBC's suggest stressed marrow given retroperitoneal bleed. - Discussed case with Dr. Claudio regarding apheresis, we will hold off for this week. - Hold off on any anticoagulation for now. - Please transfuse Platelets to keep Plt >30 K. Please check post transfusion CBC 1 hour after transfusion. - continue with Prednisone 80mg PO - Continue with cytoxan to 75 mg (per Nephro recs) - Please Transfuse for Hgb >7 and Plt > 30. ? Hematology team will follow. Pt discussed with Dr. Keenan ? Juan Christopher MD Fellow, Hematology and Medical Oncology Pager: [phone] STAFF ADDENDUM: I have reviewed the history, physical obtained and documented by the Fellow and I personally participated in all of the fernandes components. I have discussed the case and management of the patient's care with the Fellow. The following comments revise or confirm relevant fernandes components of the Fellow. Paloma has continued pain in the back and flank areas. The large RP hematoma is unchanged in size on yesterday's CT. PBS reviewed--few scattered schistocytes, many NRBC's with lab markers of hemolysis, thrombocytopenia--not surprising with the massive abdominal hematoma. There may be a platelet suppressive effect of cytoxan, and the dose has been reduced. Would continue transfusion support as needed[place] [id number] THERAPY NT Observed: 11/01/2017 Status: COMPLETED Source: [place] 9:28 AM [facility] REPOSITORY HNO ID: [id number] Author: Brenda (Pt) Kt Service: Physical Therapy Author Type: Physical Therapist Type: Therapy (PT/OT/Speech/Resp) Filed: 11/01/2017 9:34 AM Note Text: Physical Therapy Treatment SERVICE DATE: 11/01/2017 SERVICE TIME: 852 to 916 ROOM: [place] [address] Recommended Discharge Disposition: Acute Rehab Due to signifcant deficits affecting mobility and independence. Justification For Post Acute Needs: Anticipate that patient will require daily (5x/wk) skilled therapy in a post-acute facility setting at the time of acute hospital discharge;Willing to participate;Motivated;Anticipate patient will tolerate 3 hours of daily therapy at the time of admission to post-acute setting;Good family support Anticipated Discharge Needs: Undetermined PT Recommendations to Nursing: With assist of 1 person;Transfer to/from chair;OOB for Meals PT 6 Clicks Score: 10 Precautions/Activity Restrictions: Fall Risk;Lines/Tubes/Drains ASSESSMENT : Able to tolerate seated therex. Impairments seen with decreased activity tolerance, strength, coordination and balance. Patient is motivated and eager to participate in therapy session. Patient would benefit and can tolerate intense therapy to regain independence. Recommended discharge to acute rehab. Patient Disposition at Start of Session: OOB in Chair Patient Disposition at End of Session: OOB in Chair Tolerated Full Session Physical Therapy Problem List: Cognitive Deficit;Education Deficit;Decreased Activity Tolerance;Decreased Strength;Functional Mobility Impairment Patient /Caregiver Goals: Go Home Goals for Plan of Care: Rolling with: Independent Transfer supine to/from sit with: Independent Transfer sit to/from stand with: Contact Guard Assistance Ambulate with: Contact Guard Assistance Distance: 10 Device: Wheeled Walker Progress Toward Goals: Progressing as expected Rehab Potential: Excellent Based on progress towards goals PLAN: Treatment Frequency (times per week): 2 Treatment Duration (number): 2 Weeks Treatment Interventions: Education;Energy Conservation Training;Strengthening;Functional Mobility Training;Balance Training Plan of Care developed with: Patient TREATMENT INTERVENTIONS: Therapy Diagnosis: Reduced mobility-other Interventions Provided: Therapeutic Exercise (14565) Therapeutic Exercise (58411) Treatment Minutes: 24 2 units Skilled Intervention(s): Education on the role of PT and the importance of mobility. Chair push ups x 5 with total assist, unable to achieve full standing, verbal cueing for glut clearance, core activation and forward lean. Education on isometric contractions to increase strength. Diagonal reaching outside of NICHO x 5 each side with verbal cueing for core activation and lateral leaning. Modified in chair crunches x 5 with minimal verbal and tactile cueing for full ROM and forward leaning. Patient education on performing crunches 2 x5 Times additionally this date. Skilled intervention for ICU line/room setup for safe mobility environment as well as for vital sign monitoring to assess hemodynamic and respiratory response to activity to prescribe safe intensity and duration of activity/exercise during above interventions. Recommended discharge to acute rehab. Highest Level of Mobility (JH-HLM) This scale indicates the objective performance level this date and does not reflect clinical judgment of capability. Today the patient scored a 2 on the -HLM. Explanations are noted in the chart below. ? ? Criteria Score Walk 250+ feet 8 ? 25+ feet 7 ? 10+ steps 6 Stand > 1 minute 5 Chair Transfer to chair 4 Bed Sitting at EOB 3 ? Turning self/bed activity* 2 ? Only laying 1 *Includes PROM/AROM, bed exercises and UE/LE movement Total Timed Code Treatment Minutes: 24 Total Treatment Time (minutes): 24 FUNCTIONAL G CODE: PT 6 Clicks Score: 10 (11/01/17852) Mobility: Walking and Moving Around Current Status (G8978): CL (11/01/17852) Mobility: Walking and Moving Around Goal Status (G8979): CK (11/01/17852) Based on clinical assessment and the score on the 6 Clicks Functional Assessment Tool, the G code and corresponding severity modifiers are documented above. SUBJECTIVE: Current Hospital Course: Chart reviewed and no significant medical updates relevant to therapy were noted Patient Report: Thats making my stretch patient agreeable to PT session 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 Entry To Home: No Stairs Number Of Stairs To Bed/Bath: 0 Tub/Shower Type: walk in shower Equipment Owned: Commode-Raised;Grab Bars-Shower;Grab Bars-Toilet;Shower Chair;Home Oxygen Prior Functional Level: Required Assistance Assistance Required With: Cleaning;Laundry;Meals;Shopping;Transportation Prior Wound Care: Other: See Comment (unable to don compression stockings (I)) OBJECTIVE: CURRENT FUNCTIONAL STATUS: further mobility deferred due to concerns for patient safety and tolerance Current Functional Mobility Assist Level Additional Information Rolling Minimal Assistance N/A this session Supine to Sit Minimal Assistance N/A this session Sit to Supine Scooting Minimal Assistance Sit to Stand Total Assistance from low surface Stand to Sit Total Assistance From low surface Bed to Chair Moderate Assistance N/A this session Toilet/Commode Gait Stairs Curb Step Car Transfer Please see discipline specific clinical documentation flowsheet for complete details for this therapy evaluation/treatment. SIGNATURE: Brenda Meraz PT PATIENT NAME: Paloma Cannon DATE: November 01, 2017 TIME: 9:28 AM PAGER/CONTACT #: [phone] THERAPY NT Observed: 11/01/2017 Status: COMPLETED Source: [place] 9:24 AM [facility] REPOSITORY [facility] ID: [id number] Author: Brenda SanchezPtDevonte Meraz Service: Physical Therapy Author Type: Physical Therapist Type: Therapy (PT/OT/Speech/Resp) Filed: 11/01/2017 9:27 AM Note Text: Physical Therapy Treatment SERVICE DATE: 11/01/2017 SERVICE TIME: 809 to 824 ROOM: [place] [address] Recommended Discharge Disposition: Acute Rehab Due to signifcant deficits affecting mobility and independence. Justification For Post Acute Needs: Anticipate that patient will require daily (5x/wk) skilled therapy in a post-acute facility setting at the time of acute hospital discharge;Willing to participate;Motivated;Anticipate patient will tolerate 3 hours of daily therapy at the time of admission to post-acute setting;Good family support Anticipated Discharge Needs: Undetermined PT Recommendations to Nursing: With assist of 1 person;Transfer to/from chair;OOB for Meals PT 6 Clicks Score: 10 Precautions/Activity Restrictions: Fall Risk;Lines/Tubes/Drains ASSESSMENT : Able to tolerate pivot transfer with mod assist to recliner. Impairments include decreased activity tolerance, strength, balance and coordination. Patient is motivated and eager to participate in therapy session. Patient would benefit and can tolerate intense therapy to regain independence. Recommended discharge to acute rehab . Patient Disposition at Start of Session: Supine in Bed Patient Disposition at End of Session: OOB in Chair Tolerated Full Session Physical Therapy Problem List: Cognitive Deficit;Education Deficit;Decreased Activity Tolerance;Decreased Strength;Functional Mobility Impairment Patient /Caregiver Goals: Go Home Goals for Plan of Care: Rolling with: Independent Transfer supine to/from sit with: Independent Transfer sit to/from stand with: Contact Guard Assistance Ambulate with: Contact Guard Assistance Distance: 10 Device: Wheeled Walker Progress Toward Goals: Progressing as expected Rehab Potential: Excellent Based on progress towards goals PLAN: Treatment Frequency (times per week): 2 Treatment Duration (number): 2 Weeks Treatment Interventions: Education;Energy Conservation Training;Strengthening;Functional Mobility Training;Balance Training Plan of Care developed with: Patient TREATMENT INTERVENTIONS: Therapy Diagnosis: Reduced mobility-other Interventions Provided: Therapeutic Activity (84407) Therapeutic Activity (81768) Treatment Minutes: 15 1 unit Skilled Intervention(s): Education on the role of PT and the importance of mobility. Bed mobility with VC for good Log roll technique and LE advancement min assist provided to achieve erect posture. Instructed in scooting at EOB with VC for weight shifting during assist per PT for anterior translation of hips to improve alignment min assist provided to achieve full foot flat positioning. Stand pivot transfer with mod assist and max verbal cueing for glut set and weight shift. Skilled intervention for ICU line/room setup for safe mobility environment as well as for vital sign monitoring to assess hemodynamic and respiratory response to activity to prescribe safe intensity and duration of activity/exercise during above interventions. Recommended discharge to acute rehab. Total Timed Code Treatment Minutes: 15 Total Treatment Time (minutes): 15 FUNCTIONAL G CODE: PT 6 Clicks Score: 10 (11/01/17809) Mobility: Walking and Moving Around Current Status (G8978): CL (11/01/17809) Mobility: Walking and Moving Around Goal Status (G8979): CK (11/01/17809) Based on clinical assessment and the score on the 6 Clicks Functional Assessment Tool, the G code and corresponding severity modifiers are documented above. SUBJECTIVE: Current Hospital Course: Chart reviewed and no significant medical updates relevant to therapy were noted Patient Report: I can't feel when I'm moving my left leg patient agreeable to PT session 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 Entry To Home: No Stairs Number Of Stairs To Bed/Bath: 0 Tub/Shower Type: walk in shower Equipment Owned: Commode-Raised;Grab Bars-Shower;Grab Bars-Toilet;Shower Chair;Home Oxygen Prior Functional Level: Required Assistance Assistance Required With: Cleaning;Laundry;Meals;Shopping;Transportation Prior Wound Care: Other: See Comment (unable to don compression stockings (I)) OBJECTIVE: CURRENT FUNCTIONAL STATUS: further mobility deferred due to concerns for patient safety and tolerance Current Functional Mobility Assist Level Additional Information Rolling Minimal Assistance Supine to Sit Minimal Assistance Sit to Supine Scooting Minimal Assistance Sit to Stand Moderate Assistance Stand to Sit Moderate Assistance Bed to Chair Moderate Assistance Toilet/Commode Gait Stairs Curb Step Car Transfer Please see discipline specific clinical documentation flowsheet for complete details for this therapy evaluation/treatment. SIGNATURE: Brenda Meraz PT PATIENT NAME: Paloma Cannon DATE: November 01, 2017 TIME: 9:24 AM PAGER/CONTACT #: [phone] PROGRESS Observed: 11/01/2017 Status: COMPLETED Source: [place] 9:09 AM [facility] REPOSITORY [facility] ID: [id number] Author: Austen Choudhury Service: Critical Care Author Type: Physician Type: Progress Notes Filed: 11/01/2017 9:12 AM Note Text: DR. FRED STONE, SR. HOSPITAL STAFF PHYSICIAN NOTE OF PERSONAL INVOLVEMENT IN CARE I have reviewed the progress note?obtained and documented by the physician child nutrition assistant?and I personally participated in the fernandes components. I have discussed the case and management of the patient's care. The following comments revise or confirm relevant fernandes components of the note. ?? 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 Transfer to MICU for retroperitoneal bleeding now s/p coiling of bleeding vessels (last embolization on 10/26/2017). IVC thrombus s/p IVC filter. Persistent abdominal pain on WAITER/WAITRESS CABIN CLASS pump (using it less after bowel movements). On 2 L/min of O2. Moraxella lung infection under treatment with ceftriaxone. Treated with cyclophosphamide (dose recently lowered) / steroids / plasmapheresis. Persistent acute blood loss anemia. CT abdomen 10/27 showedGROSSLY STABLE SIZE OF LARGE, ACUTE/SUBACUTE LEFT RETROPERITONEAL HEMATOMA. ?NO NEW HEMATOMA IS IDENTIFIED. ?CAPRICE (contrast induced / ATN) on CVVHD. Persistent anemia despite transfusions -> repeat CT abdomen without contrast showed stable hematoma. CAPRICE on IHD. Worsening thrombocytopenia. Required on average 1 unit of PRBC and platelets daily. ?? PLAN:?Continue bowel regimen.Wean O2 as tolerated. Start oral analgesics to lower WAITER/WAITRESS CABIN CLASS pump. Peripheral blood smear. Discuss with hematology potential reasons for persistent anemia / thrombocytopenia -> autoimmune? ?? Patient/Family Updated:?Pt was updated. ?? This patient has a high probability of sudden, clinically significant deterioration, which requires the highest level of physician preparedness to intervene urgently. ?I managed/supervised life or organ supporting interventions that required frequent physician assessment. ?I devoted my full attention to the direct care of this patient for the amount of time indicated below. ?Time I spent with family or surrogate(s) is included only if the patient was incapable of providing the necessary information or participating in medical decision making. ?Time devoted to teaching and to any procedures I billed separately is not included. ?? Critical Care Documentation:?The patient has the following organ/system impairment(s): ?Acute blood loss, Acute kidney injury, Coagulopathy and Respiratory failure (Acute, with Hypoxemia) ?? Time spent providing critical care services: ?32?minutes. ?? SIGNATURE: Austen Choudhury MD [facility] PAGER:[phone] November 01, 2017 CONSULT PROG Observed: 11/01/2017 Status: COMPLETED Source: [place] 7:19 AM [facility] REPOSITORY [facility] ID: [id number] Author: Vini Toledo MD Service: Nephrology Author Type: Physician Type: Consult Progress Note Filed: 11/01/2017 9:41 AM Note Text: CONSULT PROGRESS NOTE NEPHROLOGY SERVICE Subjective INTERVAL HISTORY: No overnight events CT abdomen yesterday showed stable size of hematoma , renal vein thrombosis redemonstrated IHD today MEDICATIONS: Current hospital medications: polyethylene glycol 3350 17 g packet (MIRALAX, GLYCOLAX) 17 g ORAL/FEEDING TUBE DAILY lidocaine 5 % 2 Patch (LIDODERM) 2 Patch TRANSDERMAL DAILY lidocaine patch - REMOVE OTHER AT BEDTIME lidocaine - VERIFY PATCH OTHER q 8 H gabapentin 200 mg cap(s) (NEURONTIN) 200 mg ORAL q 12 H cefTRIAXone 2 g in D5W 100 mL MB+ (ROCEPHIN) 2 g INTRAVENOUS q 24 H docusate sodium 100 mg cap(s) (COLACE) 100 mg ORAL BID hydrALAZINE 10 mg injection (APRESOLINE) 10 mg INTRAVENOUS q 2 H PRN cyclophosphamide 150 mg cap(s) (CYTOXAN) 150 mg ORAL DAILY amLODIPine 10 mg tab(s) (NORVASC) 10 mg ORAL/FEEDING TUBE DAILY senna 8.6 mg tab(s) (SENOKOT) 8.6 mg ORAL/FEEDING TUBE BID pantoprazole DR 40 mg tab(s) (PROTONIX) 40 mg ORAL DAILY (6 AM) ondansetron 8 mg tab(s) (ZOFRAN) 8 mg ORAL q 8 H PRN diphenhydrAMINE 50 mg (BENADRYL) 50 mg ORAL/FEEDING TUBE q 6 H PRN sulfamethoxazole-trimethoprim 400-80 mg 2 tablet (BACTRIM,SEPTRA) 2 tablet ORAL/FEEDING TUBE -WE- predniSONE (DELTASONE) tab(s) 80 mg 80 mg ORAL/FEEDING TUBE DAILY hydrocortisone sodium succinate (PF) 100 mg injection (Solu- CORTEF) 100 mg INTRAVENOUS q 4 H PRN HYDROmorphone WAITER/WAITRESS CABIN CLASS 0.5 mg/mL in NaCl 0.9% 100 mL INTRAVENOUS CONTINUOUS diphenhydrAMINE 50 mg injection (BENADRYL) 50 mg INTRAVENOUS q 4 H PRN NaCl 0.9% iv infusion 5-30 mL/hr INTRAVENOUS CONTINUOUS prochlorperazine 5 mg injection (COMPAZINE) 5 mg INTRAVENOUS q 6 H PRN 0.9% NaCl 2-10 mL 2-10 mL INTRAVENOUS PRN sodium citrate 4% 3-6 mL catheter lock 3-6 mL INTRALUMINAL PRN phosphorus 500 mg tab(s) (K PHOS NEUTRAL) 500 mg ORAL/FEEDING TUBE PRN sodium phosphate 15 mmol in D5W 250 mL 15 mmol INTRAVENOUS PRN sodium phosphate 30 mmol in D5W 250 mL 30 mmol INTRAVENOUS PRN sodium phosphate 45 mmol in D5W 250 mL 45 mmol INTRAVENOUS PRN 0.9% NaCl 3-5 mL 3-5 mL INTRAVENOUS q 12 H dextrose 50% in water 25-50 mL syringe 12.5-25 g INTRAVENOUS PRN dextrose 40 % 15 g 15 g ORAL PRN glucagon 1 mg injection (GLUCAGEN) 1 mg SUBCUTANEOUS PRN acetaminophen 650 mg tab(s) (TYLENOL) 650 mg ORAL/FEEDING TUBE q 6 H PRN acetaminophen 650 mg suppository (TYLENOL) 650 mg RECTAL q 6 H PRN Objective PHYSICAL EXAM: BP 130/69 Pulse 107 Temp 37.5 ?C (99.5 ?F) (Oral) Resp 22 Ht 160 cm (5' 3) Wt 102.8 kg (226 lb 10.1 oz) SpO2 94% BMI 40.15 kg/m2 Intake/Output Summary (Last 24 hours) at 11/01/17 0721 Last data filed at 11/01/17 0600 Gross per 24 hour Intake 2165 ml Output 3745 ml Net -1580 ml Constitutional: No acute distress and Responsive Neck: Trachea midline No jugular venous distension Cardiovascular: Regular rate and ryhthm, normal S1 and S2, no murmurs, rubs, or gallops +3 edema (LE wrapped) Respiratory: Normal respiratory effort. Abdomen: Soft, non-tender, non-distended. Normal bowel sounds. No hepatosplenomegaly. Psychiatric: Alert and oriented x self, place, time, and setting Normal mood/affect Vascular Access: Hemodialysis catheter location: Left Tunneled internal jugular. Exit site demonstrates: normal findings DATA: Diagnostic tests reviewed for today's visit: Most recent labs and imaging results. Recent Labs 11/01/17 0302 10/30/17 2338 10/29/17 2335 10/28/17 2352 10/28/17 0401 NA 132* 131* 132* 133* 131* K 4.0 4.5 4.4 4.6 4.9 CHLOR 91* 93* 95* 93* 91* CO2 21* 23 25 24 28 BUN 43* 28* 25* 26* 33* CREAT 1.89* 1.39* 1.25* 1.31* 1.67* GLUC 124* 107* 115* 91 92 ANION 20* 15 12 16 12 CA 8.1* 9.0 9.3 8.7 8.6 P 3.0 3.2 2.8 3.4 4.3 MG 1.7 2.0 2.2 1.9 2.0 Recent Labs 11/01/17 0302 10/31/17 1833 10/31/17 1110 WBC 17.46* 16.61* 19.67* HB 7.2* 6.8* 7.2* HCT 21.8* 20.9* 21.6* PLT 32* 27* 30* Recent Labs 10/26/17 0020 INR 1.0 APTT 26.8 Recent Labs 10/24/17 0500 10/15/17 1223 10/13/17 1846 COLOR Straw* Yellow Red* CLARITY Hazy* Cloudy* Cloudy* UGLUC 150* Negative Negative UBILI Negative Negative 1+* UKET Negative Negative Negative SPGR 1.009 1.019 >1.030* UHB Large* 1+* 3+* UPH 9.0* 5.0 6.0 UPROT 100* 30* >=300* NITRITES Negative Negative Positive* LEUKEST Negative 1+* 2+* UWBC Negative 0-5 6-10* URBC Many* 3-5* >25* Recent Labs 10/26/17 0229 LACT 1.5 Recent Labs 10/29/17 2335 10/20/17 0415 06/09/17 1024 ALLA -- -- 156.0 -- 363.9* TRANSFERSAT -- -- 9* -- 12* B12 -- -- -- -- 646 HB 7.6* < > 8.9* < > -- < > = values in this interval not displayed. Recent Labs 10/29/17 2335 10/26/17 0020 CA 9.3 < > 8.0* P 2.8 < > 8.4* ALB -- -- 3.2* < > = values in this interval not displayed. 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 Transferred from OSH where she presented with CAPRICE in the setting of retroperioneal hemorrhage with mass effect on L kidney s/p embolization on 10/23 .Nephrology consulted for CAPRICE 1. 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 Serological work up : low c3 and c4 Urine studies: 100 protein , many RBC CVVHD discontinued on 10/30 Remains oliguric . For iHD today 2.Anemia and thrombocytopenia -concern for Micro angiopathic hemolytic anemia hapto <10 , LDH 1730 , CBC with staff review awaited Associated problems -Electrolytes: Hyponatremia - Volume status: hypervolemic -.Acid-base: within normal limits - Anemia and thrombocytopenia -?myelopsupression in the setting of cytoxan use -HTN - Page kidney Active diagnoses Retroperitoneal hematoma Acute blood loss anemia HTN APLA syndrome Moraxella Pneumonia PLAN -IHD today 3K bath , UF 2.5 to 3L -Needs adjustment of cytoxan dose in the setting of renal failure , recommendations detailed in yesterdays note -Next treatment on Monday - Strict I/O's - Renal diet - Dose medications for eGFR <10 mL/min Consent for PAINT COATING MACHINE OPERATOR: PAINT COATING MACHINE OPERATOR initiation date: 10/26/17 Consent obtained and in EMR. Will discuss with staff SIGNATURE: Laya Peters MD PATIENT NAME: Paloma Cannon DATE: November 01, 2017 TIME: 7:21 AM PAGER: [phone] TEACHING PHYSICIAN NOTE OF PERSONAL INVOLVEMENT IN CARE I have reviewed the Progress Note obtained and documented by Dr. Peters and I personally participated in the fernandes components. I have discussed the case and management of the patient's care and I agree with the formulated assessment and plan. In addition to above note: Dialysis prescription reviewed and confirmed - daily IHD/IUF - next treatment tomorrow Vini Toledo MD, FASN - Pager [phone] November 01, 2017 @ 9:41 AM CBC Collected: 11/01/2017 Status: F Source: [place] 3:02 AM [facility] REPOSITORY TYPE CODE TESTS RESULT OUT OF REFERENCE UNITS RANGE LAB WBC 3.70-11.00 k/uL WBC High 17.46 LAB RBC 3.90-5.20 m/uL Low RBC 2.31 LAB HGB 11.5-15.5 g/dL Low Hemoglobin 7.2 LAB HCT 36.0-46.0 % Low Hematocrit 21.8 LAB MCV 80.0-100.0 fL MCV 94.4 LAB MCH 26.0-34.0 pG MCH 31.2 LAB MCHC 30.5-36.0 g/dL MCHC 33.0 LAB RDWCV 11.5-15.0 % RDW-CV High 22.5 LAB PLTCT 150-400 k/uL Low Platelet Count 32 Result Comment: Result checked and verified No clot detected. LAB MPV 9.0-12.7 fL MPV 11.5 LAB ABSNUC <0.01 k/uL High Absolute nRBC 0.88 Performed By: #### CBC, CMP, MG1, PHOS #### [facility] [address], [place] [address] COMP METABOLIC PANEL Collected: 11/01/2017 Status: F Source: [place] 3:02 AM [facility] REPOSITORY TYPE CODE TESTS RESULT OUT OF REFERENCE UNITS RANGE LAB TP 6.3-8.0 g/dL Low Protein, Total 5.7 LAB ALB 3.9-4.9 g/dL Low Albumin 3.5 LAB CA 8.5-10.2 mg/dL Low Calcium, Total 8.1 LAB TBIL 0.2-1.3 mg/dL Bilirubin, Total 1.3 LAB ALKP 32-117 U/L Alkaline Phosphatase 70 LAB AST 13-35 U/L AST High 53 LAB GLU 74-99 mg/dL Glucose High 124 Result Comment: The [place] [employer] (ADA) provides guidance for cutoff values for fasting glucose and random glucose. The ADA defines fasting as no caloric intake for at least 8 hours. Fas ting plasma glucose results between 100 to 125 mg/dL indicate increased risk for diabetes (prediabetes). Fasting plasma glucose results greater than or equal to 126 mg/dL meet the criteria for diagnosis of diabetes. In the absence of unequivocal hyperglycemia, results should be confirmed by repeat testing. In a patient with classic symptoms of hyperglycemia or hyperglycemic crisis, random plasma glucose results greater than or equal to 200 mg/dL meet the criteria for diagnosis of diabetes. Reference: Standards of Medical Care in Diabetes 2016, [place] [employer]. Diabetes Care. 2016.39(Suppl 1). LAB BUN 7-21 mg/dL BUN High 43 LAB CRET 0.58-0.96 mg/dL Creatinine High 1.89 LAB NA 136-144 mmol/L Low Sodium 132 LAB K 3.7-5.1 mmol/L Potassium 4.0 LAB CL 97-105 mmol/L Low Chloride 91 LAB CO2 22-30 mmol/L Low CO2 21 LAB AGAP 9-18 mmol/L Anion Gap High 20 LAB ALT 7-38 U/L ALT High 43 LAB GFRAA eGFR- Amer. 38 LAB GFRNAA . eGFR-All Other Races 32 Result Comment: eGFR (Estimated GFR) Units of measure: mL/min/1.73 meters squared eGFR is derived from the reexpressed MDRD Study equation using the following parameters: serum creatinine, age, gender and race. The creatinine assay has been calibrated to be traceable to IDMS. An eGFR <60 mL/min/1.73m2 for >3 months is consistent with chronic kidney disease. Refer to KDOQI guidelines for clinical interpretation. In patients with unstable renal function, e.g. those with acute kidney injury, the eGFR may not accurately reflect actual GFR. Performed By: #### CBC, CMP, MG1, PHOS #### [facility] [address] [place], [place] [address] MAGNESIUM Collected: 11/01/2017 Status: F Source: [place] 3:02 AM [facility] REPOSITORY TYPE CODE TESTS RESULT OUT OF REFERENCE UNITS RANGE LAB MG 1.7-2.3 mg/dL Magnesium 1.7 Performed By: #### CBC, CMP, MG1, PHOS #### [facility] [address] [place], [place] [id number] PHOSPHORUS Collected: 11/01/2017 Status: F Source: [place] 3:02 AM [facility] REPOSITORY TYPE CODE TESTS RESULT OUT OF REFERENCE UNITS RANGE LAB PHOS 2.7-4.8 mg/dL Phosphorus 3.0 Performed By: #### CBC, CMP, MG1, PHOS #### [facility] [address] [place], [place] [address] STAFF REV W CBCDIF Collected: 10/31/2017 Status: F Source: [place] 6:33 PM [facility] REPOSITORY TYPE CODE TESTS RESULT OUT OF REFERENCE UNITS RANGE LAB WBC 3.70-11.00 k/uL WBC High 16.61 LAB RBC 3.90-5.20 m/uL Low RBC 2.17 LAB HGB 11.5-15.5 g/dL Low Hemoglobin 6.8 LAB HCT 36.0-46.0 % Low Hematocrit 20.9 LAB MCV 80.0-100.0 fL MCV 96.3 LAB MCH 26.0-34.0 pG MCH 31.3 LAB MCHC 30.5-36.0 g/dL MCHC 32.5 LAB RDWCV 11.5-15.0 % RDW-CV High 23.9 LAB PLTCT 150-400 k/uL Low Platelet Count 27 Result Comment: Result checked and verified No clot detected. LAB MPV 9.0-12.7 fL MPV <<DO NOT REPORT>> LAB ANEUT % Neut% 95.0 LAB AANEUT 1.45-7.50 k/uL Abs Neut 15.78 High LAB ALYMP % Lymph% 1.0 LAB AALYMP 1.00-4.00 k/uL Abs Lymph 0.17 Low LAB AMONO % [place]% 3.0 LAB AAMONO <0.87 k/uL Abs [place] 0.50 LAB AEOS % Eosin% 1.0 LAB AAEOS <0.46 k/uL Abs Eosin 0.17 LAB ABASO % Baso% 0.0 LAB AABASO <0.11 k/uL Abs Baso 0.00 LAB NRBC 0 /100 WBC NRBCs 8 High LAB ABNRBC <0.01 k/uL Absolute nRBC 1.33 High LAB ABIMMG k/uL 15.78 ANC(includeSEG+BAND ) LAB ANIIMI Anisocytosis Present LAB OVAIMI Ovalocytes Few LAB POLIMI Polychromasia Moderate LAB RCFIMI RBC Fragments Few LAB PLTEST Platelet Estimate Platelet estimate decreased LAB DTYP DTYPE Manual Diff LAB SREVW Staff Review SEE COMMENT Result Comment: Normocytic Anemia With Moderate Polychromasia Neutrophilic Leukocytosis with Left Shift Leukoerythroblastic Changes Absolute Lymphopenia without Leukopenia Thrombocytopenia LAB SRPATH Pathologist Reviewed by Gabriel Garcia M.D., Ph.D ([id number]) Performed By: #### STREV #### [facility] [address] [place], [place] [address] CT ABD/PEL WO IVCON Observed: 10/31/2017 Status: F Source: [place] 3:20 PM [facility] REPOSITORY * * *Final Report* * * DATE OF EXAM: Oct 31 2017 3:20PM [facility] 0531 - CT ABD/PEL WO IVCON / PROCEDURE REASON: Retroperitoneal bleed * * * * Physician Interpretation * * * * EXAMINATION: CT ABDOMEN AND PELVIS WITHOUT IV CONTRAST CLINICAL HISTORY: Known retroperitoneal hemorrhage status post coil embolization of the left L2 and L3 lumbar arteries. Continued anemia despite transfusions. TECHNIQUE: Non-IV contrast imaging of the abdomen and pelvis was performed using standard technique, scanning from just above the dome of the diaphragm to the symphysis pubis. Unenhanced imaging is limited for the evaluation of some intra-abdominal and pelvic pathology. MQ: [id number] Contrast: IV: None Oral: None CT Radiation dose: Integrated Dose-length product (DLP) for this visit = 1126 mGy*cm. CT Dose Reduction Employed: Automated exposure control (AEC) COMPARISON: 10/27/2017, 10/26/2017 RESULT: Abdomen / Pelvis: Liver: Unremarkable. Biliary: S/p cholecystectomy. Spleen: No splenomegaly. Pancreas: Unremarkable. Adrenals: Unchanged distortion of the left adrenal. No mass Kidneys: Mild persistent nephrograms bilaterally. Small amount of excreted contrast in the urinary bladder. Left kidney remains displaced anteriorly secondary to the large retroperitoneal hematoma. No renal calculus. GI Tract: No bowel dilation. Normal appendix. Lymph Nodes: No lymphadenopathy. Mesentery/peritoneum: Unchanged mild mesenteric stranding. Retroperitoneum: Essentially no change in the heterogenous left retroperitoneal hematoma which measures 18.9 x 13.7 x 29.8 cm (previously 18.9 x 14.7 x 29.3 cm). There has been interval evolution with more low attenuation components compatible with aging blood products. Stable size of the left ovoid perivesicular hematoma as well, measuring 7.9 x 4.0 cm (previously 7.9 x 4.3 cm). Vasculature: Stents in the IVC and bilateral iliac veins are unchanged. No aneurysmal dilation of the abdominal aorta or iliac arteries. Unchanged prominent remy body wall collaterals likely related to the patient's chronic central venous occlusion. Unchanged embolization coils at the left L2 and L3 lumbar artery levels. Pelvis: Urinary bladder is decompressed with a Zuniga catheter, with a small amount of excreted contrast in it. Bones/Soft Tissues: Acute abnormality. Bilateral flank and lower abdominal wall subcutaneous edema is unchanged. Lower thorax: Slight interval decrease in the left pleural effusion with associated atelectasis. Bibasilar opacities have improved, either resolving infection/inflammation or improved atelectasis. There is persistent ground glass opacity of both lungs, which is nonspecific and can be seen in the setting of edema, hemorrhage, or infection/inflammation. IMPRESSION: GROSSLY STABLE SIZE OF THE LARGE LEFT RETROPERITONEAL HEMATOMA. SOME NEW AREAS OF DECREASED ATTENUATION SUGGEST INTERVAL MATURATION/EVOLUTION. MILD PERSISTENT NEPHROGRAMS BILATERALLY DUE TO EITHER RENAL VEIN THROMBOSIS AND/OR RENAL DYSFUNCTION. UNCHANGED SUBCUTANEOUS EDEMA, LARGE COLLATERALS, TRACE ASCITES, AND MILD MESENTERIC STRANDING, ALL OF WHICH IS LIKELY SECONDARY TO KNOWN CHRONIC CENTRAL VENOUS THROMBOSIS. INTERVAL IMPROVEMENT IN THE BIBASILAR LUNG OPACITIES SEEN PREVIOUSLY, WITH PERSISTENT NONSPECIFIC DIFFUSE GROUNDGLASS ATTENUATION, PROBABLY EDEMA. Practice Support Specialist: MURTAZA Transcribe Date/Time: Oct 31 2017 3:57P Dictated by : SANCHEZ WHITE MD This examination was interpreted and the report reviewed and electronically signed by: TARIK PENG MD on Oct 31 2017 5:44PM EST [id number] Observed: 10/31/2017 Status: COMPLETED Source: [place] 3:17 PM [facility] REPOSITORY HNO ID: [id number] Author: RXOY Solorio (Ct) Service: Radiology Author Type: Clinical Title Clerk Automobile Type: Progress Notes Filed: 10/31/2017 3:17 PM Note Text: Radiology Service Progress Note PATIENT NAME: Paloma Cannon DATE OF SERVICE: October 31, 2017 TIME: 3:17 PM PATIENT IDENTITY VERIFICATION COMPLETED USING TWO (2) METHODS: Patient confirmed name verbally and ID band matches.. PATIENT GENDER DATA: Female. status: : No status: NO. PATIENT RELEVANT IMPLANT DATA REVIEWED: Yes RADIOLOGY DEPARTMENT: CT; Exam(s) Completed: Abdomen/Pelvis PERIPHERAL IV DATA: Not applicable SIGNED BY: ROXY Solorio October 31, 2017 3:17 PM HAPTOGLOBIN Collected: 10/31/2017 Status: F Source: [place] 12:52 PM [facility] REPOSITORY TYPE CODE TESTS RESULT OUT OF REFERENCE UNITS RANGE LAB HAPTO 31-238 mg/dL Low Haptoglobin <10 Performed By: #### HAPTO, LD6 #### [facility] [address] [place] [address] LD Collected: 10/31/2017 Status: F Source: [facility] 12:52 PM [facility] [place] REPOSITORY TYPE CODE TESTS RESULT OUT OF RANGE REFERENCE UNITS LAB LD 135-214 U/L High LD 1730 Performed By: #### HAPTO, LD6 #### [facility] [address] [place] [address] BUN, POST DIALYSIS Collected: 10/31/2017 Status: F Source: [place] 12:43 PM [facility] REPOSITORY TYPE CODE TESTS RESULT OUT OF REFERENCE UNITS RANGE LAB BUNPO 7-21 mg/dL BUN, 36 High Post Dialysis LAB BUNRAT % Urea Reduction Ratio Unable to Calculate Performed By: #### BUNPO1 #### [facility] [address] [place] [id number] ALLIED HEALTH Observed: 10/31/2017 Status: COMPLETED Source: [place] 12:30 PM [facility] REPOSITORY HNO ID: [id number] Author: Aleta SanchezRn) JEFF Sue Service: Healing Service Author Type: Registered Nurse Type: Allied Health Filed: 10/31/2017 1:31 PM Note Text: HEALING SERVICES THERAPY NOTE SERVICE DATE: 10/31/2017 SERVICE TIME: 1230 INTERVENTIONAL FOCUS: Anxiety Visit With: Patient Urgency of Visit: Routine Type of Visit: Introductory Visit Patient and/or Family currently not available to speak with. Left materials and contact information at bedside. SIGNATURE: Aleta Sue RN PATIENT NAME: Paloma Cannon DATE: October 31, 2017 TIME: 1:31 PM PAGER/CONTACT #: [phone] NUTRITION Observed: 10/31/2017 Status: COMPLETED Source: [place] 12:01 PM [facility] MA[facility] [place] REPOSITORY O ID: [id number] Author: Edel Guillen Service: NST-Nutrition Support Team Author Type: Registered Dietitian Type: Nutrition Filed: 10/31/2017 12:11 PM Note Text: NUTRITION THERAPY INITIAL ASSESSMENT SERVICE DATE: 10/26/2017 SERVICE TIME: 10:00 AM RECOMMENDED MALNUTRITION DIAGNOSIS: MILD PROTEIN-CALORIE MALNUTRITION In the context of Acute Illness or Injury based on: Insufficient Energy Intake: <75% for >7 days Intervention: -Recommend liberalizing diet to Regular diet -Ensure Clear TID -Mighty Shake NSA BID, Mighty Shake Plus once a day Encourage PO intake >50% meals and supplements Monitor and Evaluation: Goal: Meet >75% of estimated needs Discharge Nutrition Recommendations: To be determined Per HPI: Ms. Cannon is a 27 year old female with a PMHx significant for: - Anti-phospholipid syndrome c/b DVT/PE requiring extensive percutaneous thrombectomy of her IVC and lower extremity veins followed by b/l iliac venous stents and endograft into her IVC, on long-term anti-coagulation (recently changed to fondaparinux from coumadin on 10/13 admission) and IVC, plasmapheresis q2 weeks, prednisone 5mg daily - DAH - on cyclophosphamide and prednisone, has had 6 episodes of respiratory decline since 2013, last admission for hemoptysis on 10/13/17, on 2 L at night and with exertion - HIT - CKD 3, 2/2 renal vein thrombosis and contrast-induced nephropathy - HFpEF - HTN - Peripheral neuropathy - post-thrombotic syndrome ? Recent admission 10/13/17-10/23/17 for hemoptysis and SOB, requiring intubation, was transferred to ICU for management of DAH initially requiring pressors. Coumadin was held on admission, and she was started on prophylactic fondaparinux on 10/14. She received PLEX 10/16 and then was extubated. On 10/17, she had left-sided chest pain with increased oxygen requirement, concerning for PE, but no imaging was done as plan was to continue anticoagulation. Plex again on 10/18. ? She had bilateral US no showing acute DVT but + for chronic common femoral DVT. Neurology was consulted for left foot numbness with no intervention recommended. ?? She presented to [facility] ED on 10/23 due to severe stabbing left-sided abdominal pain radiating to left arm/leg. She had a CT abdomen that showed extensive left retroperitoneal hemorrhage with mass effect to the left kidney, and less extensive hemorrhage along the surface of the spleen and along the mesentery. She was transferred to [place] as ICU at [facility] was full. Present Diet Order: NPO Nutritional Intake Prior to Admission: <75% estimated energy needs over the past 1 month(s) Last [facility] admit 10/13 poor appetite/intakes reported. Per d/w patient today, appetite has been down since. Frequent hospitalization over the past 3 months. Since admit: reports eating <50% meals (not documented in Epic). Drinking Ensure clear and willing to try mighty shakes. *rhubarb allergy noted GI symptoms: anorexia, early satiety Abdominal Exam: abdomen is soft and distended Is the patient having any pain that is interfering with oral/enteral intake? No ANTHROPOMETRICS Height: 160 cm (5' 3) Admission Weight: 112.2 kg (247 lb 5.7 oz) Current Weight: 101.2 kg (223 lb 1.7 oz) Body mass index is 39.52 kg/(m2). Weight has increased due to fluid, now decreasing with diuresis Last wts in Epic: 10/13/17 : 104 kg (229 lb 4.5 oz) 10/05/17 : 101.4 kg (223 lb 8 oz) 09/12/17 : 96.6 kg (213 lb) 08/21/17 : 92.7 kg (204 lb 6.4 oz) - Office visit 07/11/17 : 106.6 kg (235 lb) 04/29/17 : 114.5 kg (252 lb 6.8 oz) 02/10/17 : 105.3 kg (232 lb 2.3 oz) 01/04/17 : 117 kg (257 lb 15 oz) 10/18/2016 114.306 kg Orange body weight 52.3 kg Estimated kilocalorie needs: 1533-7121 kilocalories determined by 25-30 kcal/kg ideal body weight Estimated protein needs: 78-105 grams determined by 1.5-2.0 g/kg Orange weight Estimated fluid needs: per MD NUTRITION FOCUSED PHYSICAL EXAM: Unable to perform exam due to patient/family declined, will re-attempt during reassessment. Temperature Max in 24 hours: Temp (24hrs), Av.7 ?C (98 ?F), Min:36.4 ?C (97.5 ?F), Max:37.1 ?C (98.7 ?F) BP 162/76 Pulse 82 Temp 36.4 ?C (97.6 ?F) (Oral) Resp 15 Ht 160 cm (5' 3) Wt 101.2 kg (223 lb 1.7 oz) SpO2 97% BMI 39.52 kg/m2 Component Latest Ref Rng AND Units 10/30/2017 Glucose 74 - 99 mg/dL 107 (H) BUN 7 - 21 mg/dL 28 (H) Creatinine 0.58 - 0.96 mg/dL 1.39 (H) Sodium 136 - 144 mmol/L 131 (L) Potassium 3.7 - 5.1 mmol/L 4.5 Chloride 97 - 105 mmol/L 93 (L) CO2 22 - 30 mmol/L 23 Anion Gap 9 - 18 mmol/L 15 Calcium 8.5 - 10.2 mg/dL 9.0 eGFR- 55 eGFR-All Other Races . 45 Magnesium 1.7 - 2.3 mg/dL 2.0 Phosphorus 2.7 - 4.8 mg/dL 3.2 Component Latest Ref Rng AND Units 10/30/2017 WBC 3.70 - 11.00 k/uL 17.82 (H) RBC 3.90 - 5.20 m/uL 1.99 (L) Hemoglobin 11.5 - 15.5 g/dL 6.0 (L) Hematocrit 36.0 - 46.0 % 18.8 (L) MCV 80.0 - 100.0 fL 94.5 MCH 26.0 - 34.0 pG 30.2 MCHC 30.5 - 36.0 g/dL 31.9 Potential Signs of Inflammation: leukocytosis, hypoalbuminemia and clinical condition MNT Billing Type: Re-assess/15 min 3 units SIGNATURE: Edel Guillen RD, LD, [facility] PATIENT NAME: Paloma Cannon DATE: October 31, 2017 TIME: 12:00 PM PAGER: [phone] THERAPY NT Observed: 10/31/2017 Status: COMPLETED Source: [place] 11:34 AM [facility] [place] REPOSITORY HNO ID: [id number] Author: Tamiko SanchezPt) Adelaida Service: Physical Therapy Author Type: Physical Therapist Type: Therapy (PT/OT/Speech/Resp) Filed: 10/31/2017 11:34 AM Note Text: PHYSICAL THERAPY LYMPHEDEMA MISSED VISIT SERVICE DATE: 10/31/2017 SERVICE TIME: 1110 to 1110 ROOM: [place] [address] Attempted Treatment. Patient not seen due to Sleeping. SIGNATURE: Tamiko Son PT PATIENT NAME: Paloma Cannon DATE: October 31, 2017 TIME: 11:34 AM PAGER/CONTACT #: [phone] THERAPY NT Observed: 10/31/2017 Status: COMPLETED Source: [place] 11:33 AM [facility] REPOSITORY HNO ID: [id number] Author: Tamiko Son Service: Physical Therapy Author Type: Physical Therapist Type: Therapy (PT/OT/Speech/Resp) Filed: 10/31/2017 11:33 AM Note Text: PHYSICAL THERAPY LYMPHEDEMA MISSED VISIT SERVICE DATE: 10/31/2017 SERVICE TIME: 0835 to 0835 ROOM: [place] [address] Attempted Treatment. Patient not seen due to Declined (Pt requested that PT return at a later time). SIGNATURE: Tamiko Son PT PATIENT NAME: Paloma Cannon DATE: October 31, 2017 TIME: 11:33 AM PAGER/CONTACT #: [phone] ALLIED HEALTH Observed: 10/31/2017 Status: COMPLETED Source: [place] 11:30 AM [facility] REPOSITORY HNO ID: [id number] Author: Opal Polo Service: Music Therapy Author Type: Music Therapist Type: Allied Health Filed: 10/31/2017 12:22 PM Note Text: MUSIC THERAPY NOTE SERVICE DATE: 10/31/2017 SERVICE TIME: 1130 Pt receiving dialysis upon arrival watching a video in bed. The music therapist introduced self and services. The pt noted that this music therapist had seen the pt previously. The pt noted interest, but due to dialysis at the time it was not possible to fit in the room. The pt noted a session during an off dialysis day would be better. The pt noted appreciation. The music therapist will follow-up as able. SIGNATURE: LEROY Serrano PATIENT NAME: Paloma Cannon DATE: October 31, 2017 TIME: 12:20 PM PAGER/CONTACT #: [phone] PROGRESS Observed: 10/31/2017 Status: COMPLETED Source: [place] 11:29 AM [facility] REPOSITORY O ID: [id number] Author: Austen Choudhury Service: Critical Care Author Type: Physician Type: Progress Notes Filed: 10/31/2017 12:49 PM Note Text: SERVICE DATE: 10/31/2017 SERVICE TIME: 11:29 AM MICU PROGRESS NOTE Admission Date: 10/25/2017 Hospital Day # 6 SUBJECTIVE Interval HPI: Hgb 6.0 plt 15 overnight, abdominal pain has improved OBJECTIVE Vital Signs (last filed) Range in last 24h Temp: 36.4 ?C (97.6 ?F) (10/31/17 1000) Temp Min: 36.4 ?C (97.5 ?F) Max: 37.2 ?C (99 ?F) Pulse: 82 (10/31/17 1000) Pulse Min: 74 Max: 113 Resp: 15 (10/31/17 1000) Resp Min: 3 Max: 25 BP: 162/76 (10/31/17 1000) BP Min: 119/73 Max: 173/82 MAP Non Invasive (Mean Arterial Pressure): 110 (10/31/17 1000) MAP Non Invasive (Mean Arterial Pressure) Min: 89 Max: 118 No Data Recorded SpO2: 97 % (10/31/17 1000) SpO2 Min: 91 % Max: 100 % Pain Score: 0/10 (10/31/17 0400) Fluid Balance: Intake/Output Summary (Last 24 hours) at 10/31/17 0659 Last data filed at 10/31/17 0645 Gross per 24 hour Intake 2189.2 ml Output 4260 ml Net -2070.8 ml Last Weight: 101.2 kg (223 lb 1.7 oz) (10/31/17 0600) Admit Weight: 112.2 kg (247 lb 5.7 oz) (10/25/17 2327) DIET RENAL Lines, Drains, and Airways Line Central Line Single Lumen 10/25/17 2314 Tunneled Left Chest 5 days Dialysis / Apheresis Double Lumen 10/25/17 2314 Admission to Hospital Left Chest 5 days Peripheral 10/30/17 0745 Left Forearm 1 day Drain Indwelling Urinary Catheter 10/23/17 0520 Assessment Zuniga 8 days Vent/Oxygen: Supplemental Oxygen: Yes. FiO2 3L NC No Data Recorded Physical Examination Performed Oral Mucosa: Moist mucous membranes Eyes: PERRLA Neck: Unremarkable; No adenopathy or JVD Cardiovascular: Regular rhythm Respiratory: Clear to auscultation Abdomen: Soft, Nontender and Positive bowel sounds Extremities: Edema- Yes, 2+ pitting BLE Peripheral Pulses- Present all extremities Skin: Abnormalities- No Breakdown- No Neurologic: Awake, oriented, Alert, Follows commands and Moving all extremities Infusion Medications HYDROmorphone WAITER/WAITRESS CABIN CLASS 0.5 mg/mL NaCl 0.9% Last Rate: 10 mL/hr (10/29/17 0000) Diagnostic tests reviewed today: Most recent labs and imaging results. PATIENT CHECKLIST ? Are restraints necessary: No ? Deep vein thrombosis prophylaxis administered? No. Contraindicated. ? Stress ulcer prophylaxis? Yes ? Nasogastric tube? No ? Zuniga catheter necessary? Yes ? Is central line essential? No ? Plan discussed with assigned RN? Yes ? Family updated within last 24 hours? Yes CARE COORDINATION: Patient Summary: 27 year old female with a PMHx significant for: - Anti-phospholipid syndrome c/b DVT/PE requiring extensive percutaneous thrombectomy of her IVC and lower extremity veins followed by b/l iliac venous stents and endograft into her IVC, on long-term anti-coagulation (recently changed to fondaparinux from coumadin on 10/13 admission) and IVC, plasmapheresis q2 weeks, prednisone 5mg daily - DAH - on cyclophosphamide and prednisone, has had 6 episodes of respiratory decline since 2013, last admission for hemoptysis on 10/13/17, on 2 L at night and with exertion - HIT - CKD 3, 2/2 renal vein thrombosis and contrast-induced nephropathy - HFpEF - HTN - Peripheral neuropathy - post-thrombotic syndrome Transferred from [place] for ongoing L RP bleeding. Major Interval Events: 10/26: Transferred from [place]. Hgb down to 5.5. CTA showing active extravasation, IR embolization of left L2, L3 arteries 10/27: Hgb 6.6, continued to transfuse PRBCs, acute onset right groin pain 10/28: Hgb 6.5, additional PRBCs given, Hgb stable 7.5 after transfusion 10/29: Hgb 6.9, plt 18, transfused 1U pRBCs and 1U plts 10/30: Hgb 7.2, HDS 10/31: Hgb 6, plt 15, transfused 1U PRBCs and 1U plts Plan for Day: - Trend CBC and transfuse to Hgb>7, Plt >30 - CT abd/pel - Hold anticoagulation - Monitor respiratory status - IHD - hold apheresis until hgb and plt counts are stable ASSESSMENT AND PLAN Overview, Assessment AND Plan, all Hosp Problems Active Hospital Problems as of 10/31/2017 Noted - Resolved 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 Alicea PLAN: - cyclophosphamide daily - Continue prednisone - IHD HTN (hypertension) 10/08/2015 - Present Overview Mildly decreased systolic function, diastolic function indeterminate on 10/13/17 ECHO. 10/28: Run of SBP in 200s overnight (likely d/t pain), given hydralazine however still consistently in 170s-180s 10/29: Still hypertensive, required 4 doses of hydralazine overnight Current Assessment AND Plan PLAN: - amlodipine to 10 mg daily - Hydralazine prn - cont pain regimen CAPRICE (acute kidney injury) (HCC) 10/08/2015 - Present Overview CAPRICE on CKD III, 2/2 contrast, now requiring dialysis First HD at [place] on 10/25 with tunneled dialysis catheter placement CT Abdomen/pelvis from 10/26 showed occlusion of B/L renal veins, outflow not appreciated- could be attributing to CAPRICE and CKD Bladder scan Current Assessment AND Plan Assessment: CAPRICE on CKDIII secondary to FABY, now on dialysis PLAN: - Nephrology following - transitioned to IHD from CVVH per nephro - Monitor I/Os - sevelamer TID - renal diet 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 - Present Current Assessment AND Plan PLAN: - Avoid heparin and heparin-like products Peripheral neuropathy 04/14/2016 - Present Current Assessment AND Plan PLAN: - Continue neurontin Anti-phospholipid antibody syndrome (HCC) 10/25/2017 - Present Current Assessment AND Plan PLAN: - Plasmapheresis q2 weeks (holding apheresis until hgb and plt counts are stable) - Continue prednisone - Hold anticoagulation until resolution of retroperitoneal bleed - Hematology following, appreciate recs - Vascular med has signed off * (Principal)Retroperitoneal hematoma 10/26/2017 - Present Overview Retroperitoneal bleed: s/p 7 units PRBCs s/p IR emobolization of left L3 artery at [place] on 10/23 IR embolization of left L2 and L3 arteries on 10/26 Current Assessment AND Plan Assessment: secondary to anticoagulation PLAN: - Monitor CBC and transfuse to Hgb>7, plt>30 per heme - CT abd/pel - check LDH and haptoglobin per nephro recs - Premedicate for transfusions - Hold anticoagulation - Heme following, appreciate recs - pain regimen Right groin pain 10/27/2017 - Present Overview 10/27: C/o acute pain this morning, access site for embolization at [place], no erythema or induration appreciated on exam, exquisitely TTP Groin study showed no signs of PSA, known AV fistula visualized with retrograde flow, vascular med aware- no further recs 10/28: pain less severe, no physical exam findings Current Assessment AND Plan PLAN: - Pedal pulse checks Q2 - Vascular med has signed off - No additional recs from vascular surgery - cont pain regimen Moraxella catarrhalis pneumonia (HCC) 10/29/2017 - Present Current Assessment AND Plan PLAN: - Ceftriaxone (10-26-11/02) Plan of care discussed with: Patient and ICU Team SIGNATURE: Christine Walker PA-C PATIENT NAME: Paloma Cannon DATE: October 31, 2017 TIME: 11:29 AM PAGER/CONTACT #: [phone] DR. FRED STONE, SR. HOSPITAL STAFF PHYSICIAN NOTE OF PERSONAL INVOLVEMENT IN CARE I have reviewed the progress note obtained and documented by the physician child nutrition assistant and I personally participated in the fernandes components. I have discussed the case and management of the patient's care. The following comments revise or confirm relevant fernandes components of the note. ? IMPRESSION: 27 yo woman with APS with Hx of VTE, DAH, HIT, CAPRICE on CKD. Transfer to MICU for retroperitoneal bleeding now s/p coiling of bleeding vessels (last embolization on 10/26/2017). IVC thrombus s/p IVC filter. Persistent abdominal pain on WAITER/WAITRESS CABIN CLASS pump (using it less after bowel movements). On 3 L/min of O2. Moraxella lung infection under treatment with ceftriaxone. Treated with cyclophosphamide / steroids / plasmapheresis. Persistent acute blood loss anemia. CT abdomen 10/27 showedGROSSLY STABLE SIZE OF LARGE, ACUTE/SUBACUTE LEFT RETROPERITONEAL HEMATOMA. ?NO NEW HEMATOMA IS IDENTIFIED. CAPRICE (contrast induced / ATN) on CVVHD. Persistent anemia despite transfusions -> repeat CT abdomen without contrast. CAPRICE on IHD. Worsening thrombocytopenia. ? PLAN: Continue bowel regimen.Wean O2 as tolerated. CT abdomen. Appreciate pain management recommendations. Peripheral blood smear. ? Patient/Family Updated: Pt was updated. ? This patient has a high probability of sudden, clinically significant deterioration, which requires the highest level of physician preparedness to intervene urgently. I managed/supervised life or organ supporting interventions that required frequent physician assessment. I devoted my full attention to the direct care of this patient for the amount of time indicated below. Time I spent with family or surrogate(s) is included only if the patient was incapable of providing the necessary information or participating in medical decision making. Time devoted to teaching and to any procedures I billed separately is not included. ? Critical Care Documentation: The patient has the following organ/system impairment(s): Acute blood loss, Acute kidney injury, Coagulopathy and Respiratory failure (Acute, with Hypoxemia) ? Time spent providing critical care services: 35 minutes. ? SIGNATURE: Austen Choudhury MD [facility] PAGER:[phone] October 31, 2017 CBC Collected: 10/31/2017 Status: F Source: [place] 11:10 AM [facility] [place] REPOSITORY TYPE CODE TESTS RESULT OUT OF REFERENCE UNITS RANGE LAB WBC 3.70-11.00 k/uL WBC High 19.67 LAB RBC 3.90-5.20 m/uL Low RBC 2.30 LAB HGB 11.5-15.5 g/dL Low Hemoglobin 7.2 LAB HCT 36.0-46.0 % Low Hematocrit 21.6 LAB MCV 80.0-100.0 fL MCV 93.9 LAB MCH 26.0-34.0 pG MCH 31.3 LAB MCHC 30.5-36.0 g/dL MCHC 33.3 LAB RDWCV 11.5-15.0 % RDW-CV High 23.5 LAB PLTCT 150-400 k/uL Low Platelet Count 30 Result Comment: Result checked and verified No clot detected. LAB MPV 9.0-12.7 fL MPV <<DO NOT REPORT>> LAB ABSNUC <0.01 k/uL 1.26 High Absolute nRBC Performed By: #### CBC #### [facility] [address] [place], [place] [address] CONSULT PROG Observed: 10/31/2017 Status: COMPLETED Source: [place] 10:21 AM [facility] [place] REPOSITORY HNO ID: [id number] Author: Juan Christopher (Fel) Service: Hematology Author Type: Fellow Type: Consult Progress Note Filed: 10/31/2017 6:13 PM Note Text: ? [facility] DEPARTMENT OF HEMATOLOGIC ONCOLOGY AND BLOOD DISORDERS ? Hematology Consult Follow Up ? ? Patient name: Paloma Cannon : 1990 Date of Service: 10/30/2017 Supervising attending physician: Dr. Keenan ? INTERVAL HISTORY: Continues to complain of pain in the back and R groin Received 1 U of PRBC and 1 U of platelets yesterday in the evening. Current hospital medications: polyethylene glycol 3350 17 g packet (MIRALAX, GLYCOLAX) 17 g ORAL/FEEDING TUBE DAILY lidocaine 5 % 2 Patch (LIDODERM) 2 Patch TRANSDERMAL DAILY lidocaine patch - REMOVE OTHER AT BEDTIME lidocaine - VERIFY PATCH OTHER q 8 H gabapentin 200 mg cap(s) (NEURONTIN) 200 mg ORAL q 12 H cefTRIAXone 2 g in D5W 100 mL MB+ (ROCEPHIN) 2 g INTRAVENOUS q 24 H docusate sodium 100 mg cap(s) (COLACE) 100 mg ORAL BID hydrALAZINE 10 mg injection (APRESOLINE) 10 mg INTRAVENOUS q 2 H PRN cyclophosphamide 150 mg cap(s) (CYTOXAN) 150 mg ORAL DAILY amLODIPine 10 mg tab(s) (NORVASC) 10 mg ORAL/FEEDING TUBE DAILY senna 8.6 mg tab(s) (SENOKOT) 8.6 mg ORAL/FEEDING TUBE BID pantoprazole DR 40 mg tab(s) (PROTONIX) 40 mg ORAL DAILY (6 AM) ondansetron 8 mg tab(s) (ZOFRAN) 8 mg ORAL q 8 H PRN diphenhydrAMINE 50 mg (BENADRYL) 50 mg ORAL/FEEDING TUBE q 6 H PRN sulfamethoxazole-trimethoprim 400-80 mg 2 tablet (BACTRIM,SEPTRA) 2 tablet ORAL/FEEDING TUBE - predniSONE (DELTASONE) tab(s) 80 mg 80 mg ORAL/FEEDING TUBE DAILY hydrocortisone sodium succinate (PF) 100 mg injection (Solu- CORTEF) 100 mg INTRAVENOUS q 4 H PRN HYDROmorphone WAITER/WAITRESS CABIN CLASS 0.5 mg/mL in NaCl 0.9% 100 mL INTRAVENOUS CONTINUOUS diphenhydrAMINE 50 mg injection (BENADRYL) 50 mg INTRAVENOUS q 4 H PRN NaCl 0.9% iv infusion 5-30 mL/hr INTRAVENOUS CONTINUOUS prochlorperazine 5 mg injection (COMPAZINE) 5 mg INTRAVENOUS q 6 H PRN 0.9% NaCl 2-10 mL 2-10 mL INTRAVENOUS PRN sodium citrate 4% 3-6 mL catheter lock 3-6 mL INTRALUMINAL PRN phosphorus 500 mg tab(s) (K PHOS NEUTRAL) 500 mg ORAL/FEEDING TUBE PRN sodium phosphate 15 mmol in D5W 250 mL 15 mmol INTRAVENOUS PRN sodium phosphate 30 mmol in D5W 250 mL 30 mmol INTRAVENOUS PRN sodium phosphate 45 mmol in D5W 250 mL 45 mmol INTRAVENOUS PRN 0.9% NaCl 3-5 mL 3-5 mL INTRAVENOUS q 12 H dextrose 50% in water 25-50 mL syringe 12.5-25 g INTRAVENOUS PRN dextrose 40 % 15 g 15 g ORAL PRN glucagon 1 mg injection (GLUCAGEN) 1 mg SUBCUTANEOUS PRN acetaminophen 650 mg tab(s) (TYLENOL) 650 mg ORAL/FEEDING TUBE q 6 H PRN acetaminophen 650 mg suppository (TYLENOL) 650 mg RECTAL q 6 H PRN ? PHYSICAL EXAMINATION: General: Alert, NAD.On Nasal canula 02. HEENT: Grossly PERRLA, EOMI, anicteric Heart/CV: Grossly RRR Lungs/Resp/Chest: Normal chest wall movement. Abd: Grossly ND, no HSM, no other masses Extremities/Skin: No rashes appreciated DATA: Labs: Component WBC RBC Hemoglobin Hematocrit MCV MCH MCHC RDW- CV Platelet Count MPV Absolute nRBC Latest Ref Rng AND Units 3.70 - 11.00 k/uL 3.90 - 5.20 m/uL 11.5 - 15.5 g/dL 36.0 - 46.0 % 80.0 - 100.0 fL 26.0 - 34.0 pG 30.5 - 36.0 g/dL 11.5 - 15.0 % 150 - 400 k/uL 9.0 - 12.7 fL <0.01 k/uL 10/29/2017 6:52 PM 16.64 (H) 2.44 (L) 7.3 (L) 22.4 (L) 91.8 29.9 32.6 19.1 (H) 17 (L) <<DO NOT REPORT>> 1.36 (H) 10/29/2017 11:35 PM 17.31 (H) 2.51 (L) 7.6 (L) 23.0 (L) 91.6 30.3 33.0 20.2 (H) 18 (L) <<DO NOT REPORT>> 1.72 (H) 10/30/2017 11:15 AM 17.89 (H) 2.36 (L) 7.2 (L) 22.5 (L) 95.3 30.5 32.0 22.8 (H) 15 (L) <<DO NOT REPORT>> 2.84 (H) 10/30/2017 6:50 PM 18.60 (H) 2.18 (L) 6.8 (L) 20.8 (L) 95.4 31.2 32.7 23.1 (H) 14 (L) <<DO NOT REPORT>> 1.35 (H) 10/30/2017 11:38 PM 17.82 (H) 1.99 (L) 6.0 (L) 18.8 (L) 94.5 30.2 31.9 24.0 (H) 15 (L) <<DO NOT REPORT>> 1.33 (H) Component Fondaparinux Latest Ref Rng AND Units 0.00 mg/L 10/16/2017 1.07 (H) 10/18/2017 1.69 (H) 10/20/2017 2.28 (H) 10/26/2017 0.94 (H) 10/27/2017 0.67 (H) ASSESSMENT/PLAN: 27 y/o female?with PMHx of Triple-positive Anti-phospholipid Syndrome diagnosed in 2013?(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 Recent admission 10/13/17-10/23/17 for hemoptysis and SOB, requiring intubation, was in MICU for management of DAH. Admitted to MICU again for extensive left retroperitoneal hemorrhage s/p IR guided intervention (initially on 10/23 at [facility] and 10/26 here at [facility]. ? # Antiphospholipid antibody syndrome Extensive left retroperitoneal hemorrhage likely secondary to anticoagulant. Its an unfortunate case, she needs an anticoagulation for APS but bleeding episodes prohibit it. On IHD from today Platelets are getting worse (15K ). Its highly unlikely its ITP. - Discussed case with Dr. Claudio regarding apheresis, we will hold off for today given concern for bleeding. - Hold off on any anticoagulation for now. - Please transfuse Platelets to keep Plt >30 K. Please check post transfusion CBC 1 hour after transfusion. - continue with Prednisone 80mg PO - Ok with decreasing cytoxan to 75 mg (per Nephro recs) - Will review peripheral smear tomorrow - Please Transfuse for Hgb >7 and Plt > 30. ? Hematology team will follow. Pt discussed with Dr. Keenan ? Juan Christopher MD Fellow, Hematology and Medical Oncology Pager: [phone] CONSULT PROG Observed: 10/31/2017 Status: COMPLETED Source: [place] 8:45 AM [facility] REPOSITORY HNO ID: [id number] Author: Vini Toledo MD Service: Nephrology Author Type: Physician Type: Consult Progress Note Filed: 10/31/2017 10:12 AM Note Text: CONSULT PROGRESS NOTE NEPHROLOGY SERVICE Subjective INTERVAL HISTORY: CVVHD discontinued last night UO 65ml , net negative 2L Worsening anemia noted MEDICATIONS: Current hospital medications: polyethylene glycol 3350 17 g packet (MIRALAX, GLYCOLAX) 17 g ORAL/FEEDING TUBE DAILY lidocaine 5 % 2 Patch (LIDODERM) 2 Patch TRANSDERMAL DAILY lidocaine patch - REMOVE OTHER AT BEDTIME lidocaine - VERIFY PATCH OTHER q 8 H gabapentin 200 mg cap(s) (NEURONTIN) 200 mg ORAL q 12 H cefTRIAXone 2 g in D5W 100 mL MB+ (ROCEPHIN) 2 g INTRAVENOUS q 24 H docusate sodium 100 mg cap(s) (COLACE) 100 mg ORAL BID hydrALAZINE 10 mg injection (APRESOLINE) 10 mg INTRAVENOUS q 2 H PRN cyclophosphamide 150 mg cap(s) (CYTOXAN) 150 mg ORAL DAILY amLODIPine 10 mg tab(s) (NORVASC) 10 mg ORAL/FEEDING TUBE DAILY senna 8.6 mg tab(s) (SENOKOT) 8.6 mg ORAL/FEEDING TUBE BID pantoprazole DR 40 mg tab(s) (PROTONIX) 40 mg ORAL DAILY (6 AM) ondansetron 8 mg tab(s) (ZOFRAN) 8 mg ORAL q 8 H PRN diphenhydrAMINE 50 mg (BENADRYL) 50 mg ORAL/FEEDING TUBE q 6 H PRN sulfamethoxazole-trimethoprim 400-80 mg 2 tablet (BACTRIM,SEPTRA) 2 tablet ORAL/FEEDING TUBE -WE- predniSONE (DELTASONE) tab(s) 80 mg 80 mg ORAL/FEEDING TUBE DAILY hydrocortisone sodium succinate (PF) 100 mg injection (Solu- CORTEF) 100 mg INTRAVENOUS q 4 H PRN HYDROmorphone WAITER/WAITRESS CABIN CLASS 0.5 mg/mL in NaCl 0.9% 100 mL INTRAVENOUS CONTINUOUS diphenhydrAMINE 50 mg injection (BENADRYL) 50 mg INTRAVENOUS q 4 H PRN NaCl 0.9% iv infusion 5-30 mL/hr INTRAVENOUS CONTINUOUS prochlorperazine 5 mg injection (COMPAZINE) 5 mg INTRAVENOUS q 6 H PRN 0.9% NaCl 2-10 mL 2-10 mL INTRAVENOUS PRN sodium citrate 4% 3-6 mL catheter lock 3-6 mL INTRALUMINAL PRN phosphorus 500 mg tab(s) (K PHOS NEUTRAL) 500 mg ORAL/FEEDING TUBE PRN sodium phosphate 15 mmol in D5W 250 mL 15 mmol INTRAVENOUS PRN sodium phosphate 30 mmol in D5W 250 mL 30 mmol INTRAVENOUS PRN sodium phosphate 45 mmol in D5W 250 mL 45 mmol INTRAVENOUS PRN 0.9% NaCl 3-5 mL 3-5 mL INTRAVENOUS q 12 H dextrose 50% in water 25-50 mL syringe 12.5-25 g INTRAVENOUS PRN dextrose 40 % 15 g 15 g ORAL PRN glucagon 1 mg injection (GLUCAGEN) 1 mg SUBCUTANEOUS PRN acetaminophen 650 mg tab(s) (TYLENOL) 650 mg ORAL/FEEDING TUBE q 6 H PRN acetaminophen 650 mg suppository (TYLENOL) 650 mg RECTAL q 6 H PRN Objective PHYSICAL EXAM: BP 156/83 Pulse 101 Temp 37.2 ?C (99 ?F) (Oral) Resp 17 Ht 160 cm (5' 3) Wt 101.2 kg (223 lb 1.7 oz) SpO2 94% BMI 39.52 kg/m2 Intake/Output Summary (Last 24 hours) at 10/31/17 0845 Last data filed at 10/31/17 0800 Gross per 24 hour Intake 2089.2 ml Output 3558 ml Net -1468.8 ml Constitutional: No acute distress and Responsive Neck: Trachea midline No jugular venous distension Cardiovascular: Regular rate and ryhthm, normal S1 and S2, no murmurs, rubs, or gallops +3 edema (LE wrapped) Respiratory: Normal respiratory effort. Abdomen: Soft, non-tender, non-distended. Normal bowel sounds. No hepatosplenomegaly. Psychiatric: Alert and oriented x self, place, time, and setting Normal mood/affect Vascular Access: Hemodialysis catheter location: Left Tunneled internal jugular. Exit site demonstrates: normal findings DATA: Diagnostic tests reviewed for today's visit: Most recent labs and imaging results. Recent Labs 10/30/17 2338 10/29/17 2335 10/28/17 2352 10/28/17 0401 10/27/17 1623 10/27/17 0100 NA 131* 132* 133* 131* -- 127* K 4.5 4.4 4.6 4.9 -- 5.4* CHLOR 93* 95* 93* 91* -- 87* CO2 23 25 24 28 -- 23 BUN 28* 25* 26* 33* -- 58* CREAT 1.39* 1.25* 1.31* 1.67* -- 2.56* GLUC 107* 115* 91 92 -- 118* ANION 15 12 16 12 -- 17 CA 9.0 9.3 8.7 8.6 -- 7.6* P 3.2 2.8 3.4 4.3 5.4* 7.1* MG 2.0 2.2 1.9 2.0 2.1 2.1 Recent Labs 10/30/17 2338 10/30/17 1850 10/30/17 1115 WBC 17.82* 18.60* 17.89* HB 6.0* 6.8* 7.2* HCT 18.8* 20.8* 22.5* PLT 15* 14* 15* Recent Labs 10/26/17 0020 INR 1.0 APTT 26.8 Recent Labs 10/24/17 0500 10/15/17 1223 10/13/17 1846 COLOR Straw* Yellow Red* CLARITY Hazy* Cloudy* Cloudy* UGLUC 150* Negative Negative UBILI Negative Negative 1+* UKET Negative Negative Negative SPGR 1.009 1.019 >1.030* UHB Large* 1+* 3+* UPH 9.0* 5.0 6.0 UPROT 100* 30* >=300* NITRITES Negative Negative Positive* LEUKEST Negative 1+* 2+* UWBC Negative 0-5 6-10* URBC Many* 3-5* >25* Recent Labs 10/26/17 0229 LACT 1.5 Recent Labs 10/29/17 2335 10/20/17 0415 06/09/17 1024 ALLA -- -- 156.0 -- 363.9* TRANSFERSAT -- -- 9* -- 12* B12 -- -- -- -- 646 HB 7.6* < > 8.9* < > -- < > = values in this interval not displayed. Recent Labs 10/29/17 2335 10/26/17 0020 CA 9.3 < > 8.0* P 2.8 < > 8.4* ALB -- -- 3.2* < > = values in this interval not displayed. 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 Transferred from OSH where she presented with CAPRICE in the setting of retroperioneal hemorrhage with mass effect on L kidney s/p embolization on 10/23 .Nephrology consulted for CAPRICE 1. 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 Serological work up : low c3 and c4 Urine studies: 100 protein , many RBC CVVHD discontinued on 10/30 No signs of renal recovery . Planned for IUF today Associated problems -Electrolytes: Hyponatremia - Volume status: hypervolemic -.Acid-base: within normal limits - Anemia and thrombocytopenia -?myelopsupression in the setting of cytoxan use -HTN - Page kidney Active diagnoses Retroperitoneal hematoma Acute blood loss anemia HTN APLA syndrome Moraxella Pneumonia PLAN -IUF today , net UF 3L -Check LDH and haptoglobin -cytoxan dose may need to be adjusted -will defer to hematology team -PRBC transfusion per ICU team -IHD on Monday - Strict I/O's - Renal diet - Dose medications for eGFR <10 mL/min Consent for PAINT COATING MACHINE OPERATOR: PAINT COATING MACHINE OPERATOR initiation date: 10/26/17 Consent obtained and in EMR. Will discuss with staff SIGNATURE: Laya Peters MD PATIENT NAME: Paloma Cannon DATE: October 31, 2017 TIME: 8:45 AM PAGER: [phone] TEACHING PHYSICIAN NOTE OF PERSONAL INVOLVEMENT IN CARE I have reviewed the Progress Note obtained and documented by Dr. Peters and I personally participated in the fernandes components. I have discussed the case and management of the patient's care and I agree with the formulated assessment and plan. In addition to above note: Seen and examined on IUF - prescription reviewed and confirmed - UF goal of 3.5 liters - IHD tomorrow. CYC dose needs to be renally adjusted - target 0.8 mg/Kg - Decrease to 75 mg qD Vini Toledo MD, FASN - Pager [phone] October 31, 2017 @ 10:11 AM CONSULT PROG Observed: 10/31/2017 Status: COMPLETED Source: [place] 8:41 AM [facility] REPOSITORY O ID: [id number] Author: Lisseth Claudio MD Service: Apheresis Author Type: Physician Type: Consult Progress Note Filed: 10/31/2017 8:53 AM Note Text: Brief Apheresis Progress Note S) Ms. Cannon continues to have daily RBC and platelet transfusion requirements. She received one unit of RBCs this morning for anemia. She does not currently have signs of diffuse alveolar hemorrhage. O) Hemoglobin (g/dL) Date Value 10/30/2017 6.0 Hematocrit (%) Date Value 10/30/2017 18.8 WBC (k/uL) Date Value 10/30/2017 17.82 Platelet Count Date Value Ref Range Status 10/30/2017 15 (L) 150 - 400 k/uL Final Comment: Result checked and verified No clot detected. No call per procedure. 10/31/17 00:32 S.Kala Glucose (mg/dL) Date Value 10/30/2017 107 Potassium (mmol/L) Date Value 10/30/2017 4.5 Sodium (mmol/L) Date Value 10/30/2017 131 Chloride (mmol/L) Date Value 10/30/2017 93 CO2 (mmol/L) Date Value 10/30/2017 23 Creatinine (mg/dL) Date Value 10/30/2017 1.39 BUN (mg/dL) Date Value 10/30/2017 28 Anion Gap (mmol/L) Date Value 10/30/2017 15 Calcium (mg/dL) Date Value 10/30/2017 9.0 A/P) Paloma Cannon is a 27 year old woman with CAPS who undergoes plasma exchange every other week. Will hold plasma exchange until her hematology counts are stable or if DAH occurs. Currently she has acute blood loss from a retroperitoneal bleed. She also has impaired renal funciton. I am concerned that the systemic anticoagulation with ACD could worsen her retroperitoneal bleed. Performing PLEX has greater bleeding risks given the renal metabolism of citrate. Plasma exchange can also reduce platelet counts. The increased risks of bleeding currently outweigh any current benefits of PLEX. Plan discussed with DrsShane Cruz. Lisseth Claudio MD 10/31/2017 8:50 AM BUN, PRE DIALYSIS Collected: 10/31/2017 Status: F Source: [place] 8:30 AM [facility] REPOSITORY TYPE CODE TESTS RESULT OUT OF REFERENCE UNITS RANGE LAB BUNPR 7-21 mg/dL High BUN, Pre 33 Dialysis Performed By: #### BUNPR, HBSAG, AHBSAG #### [facility] [address] [place], [place] [address] HEPATITIS B SURF. AG Collected: 10/31/2017 Status: F Source: [place] 8:30 AM [facility] REPOSITORY TYPE CODE TESTS RESULT OUT OF REFERENCE UNITS RANGE LAB HBSAG Negative Hepatitis B Negative Surf. Ag Performed By: #### BUNPR, HBSAG, AHBSAG #### [facility] [address] [place] [id number] HEPB SURFACE AB,QUAL Collected: 10/31/2017 Status: F Source: [place] 8:30 AM [facility] REPOSITORY TYPE CODE TESTS RESULT OUT OF REFERENCE UNITS RANGE LAB AHBSAG Negative HepB Surface Negative Ab,Qual Result Comment: NEGATIVE Performed By: #### BUNPR, HBSAG, AHBSAG #### [address] [address] CBC Collected: 10/30/2017 Status: F Source: [place] 11:38 PM [facility] REPOSITORY TYPE CODE TESTS RESULT OUT OF REFERENCE UNITS RANGE LAB WBC 3.70-11.00 k/uL WBC High 17.82 LAB RBC 3.90-5.20 m/uL Low RBC 1.99 LAB HGB 11.5-15.5 g/dL Low Hemoglobin 6.0 LAB HCT 36.0-46.0 % Low Hematocrit 18.8 LAB MCV 80.0-100.0 fL MCV 94.5 LAB MCH 26.0-34.0 pG MCH 30.2 LAB MCHC 30.5-36.0 g/dL MCHC 31.9 LAB RDWCV 11.5-15.0 % RDW-CV High 24.0 LAB PLTCT 150-400 k/uL Low Platelet Count 15 Result Comment: Result checked and verified No clot detected. No call per procedure. 10/31/17 00:32 [place] LAB MPV 9.0-12.7 fL MPV <<DO NOT REPORT>> LAB ABSNUC <0.01 k/uL 1.33 High Absolute nRBC Performed By: #### CBC, BMP, MG1, PHOS #### [facility] [address] [place], [place] [address] BASIC METABOLIC PANL Collected: 10/30/2017 Status: F Source: [place] 11:38 PM [facility] REPOSITORY TYPE CODE TESTS RESULT OUT OF REFERENCE UNITS RANGE LAB GLU 74-99 mg/dL High Glucose 107 Result Comment: The [place] [employer] (ADA) provides guidance for cutoff values for fasting glucose and random glucose. The ADA defines fasting as no caloric intake for at least 8 hours. Fas ting plasma glucose results between 100 to 125 mg/dL indicate increased risk for diabetes (prediabetes). Fasting plasma glucose results greater than or equal to 126 mg/dL meet the criteria for diagnosis of diabetes. In the absence of unequivocal hyperglycemia, results should be confirmed by repeat testing. In a patient with classic symptoms of hyperglycemia or hyperglycemic crisis, random plasma glucose results greater than or equal to 200 mg/dL meet the criteria for diagnosis of diabetes. Reference: Standards of Medical Care in Diabetes 2016, [place] [employer]. Diabetes Care. 2016.39(Suppl 1). LAB BUN 7-21 mg/dL BUN High 28 LAB CRET 0.58-0.96 mg/dL Creatinine High 1.39 LAB NA 136-144 mmol/L Low Sodium 131 LAB K 3.7-5.1 mmol/L Potassium 4.5 LAB CL 97-105 mmol/L Low Chloride 93 LAB CO2 22-30 mmol/L CO2 23 LAB AGAP 9-18 mmol/L Anion Gap 15 LAB CA 8.5-10.2 mg/dL Calcium, Total 9.0 LAB GFRAA eGFR- Amer. 55 LAB GFRNAA . eGFR-All Other Races 45 Result Comment: eGFR (Estimated GFR) Units of measure: mL/min/1.73 meters squared eGFR is derived from the reexpressed MDRD Study equation using the following parameters: serum creatinine, age, gender and race. The creatinine assay has been calibrated to be traceable to IDMS. An eGFR <60 mL/min/1.73m2 for >3 months is consistent with chronic kidney disease. Refer to KDOQI guidelines for clinical interpretation. In patients with unstable renal function, e.g. those with acute kidney injury, the eGFR may not accurately reflect actual GFR. Performed By: #### CBC, BMP, MG1, PHOS #### [facility] [address] [place], [place] [address] MAGNESIUM Collected: 10/30/2017 Status: F Source: [place] 11:38 PM [facility] REPOSITORY TYPE CODE TESTS RESULT OUT OF REFERENCE UNITS RANGE LAB MG 1.7-2.3 mg/dL Magnesium 2.0 Performed By: #### CBC, BMP, MG1, PHOS #### [facility] [address], [place] [address] PHOSPHORUS Collected: 10/30/2017 Status: F Source: [place] 11:38 PM [facility] REPOSITORY TYPE CODE TESTS RESULT OUT OF REFERENCE UNITS RANGE LAB PHOS 2.7-4.8 mg/dL Phosphorus 3.2 Performed By: #### CBC, BMP, MG1, PHOS #### [facility] [address] [place], [place] [address] CBC Collected: 10/30/2017 Status: F Source: [place] 6:50 PM [facility] REPOSITORY TYPE CODE TESTS RESULT OUT OF REFERENCE UNITS RANGE LAB WBC 3.70-11.00 k/uL WBC High 18.60 LAB RBC 3.90-5.20 m/uL Low RBC 2.18 LAB HGB 11.5-15.5 g/dL Low Hemoglobin 6.8 LAB HCT 36.0-46.0 % Low Hematocrit 20.8 LAB MCV 80.0-100.0 fL MCV 95.4 LAB MCH 26.0-34.0 pG MCH 31.2 LAB MCHC 30.5-36.0 g/dL MCHC 32.7 LAB RDWCV 11.5-15.0 % RDW-CV High 23.1 LAB PLTCT 150-400 k/uL Low Platelet Count 14 Result Comment: Result checked and verified No clot detected. No call per procedure. 10/30/17 20:11 T [place] LAB MPV 9.0-12.7 fL MPV <<DO NOT REPORT>> LAB ABSNUC <0.01 k/uL 1.35 High Absolute nRBC Performed By: #### CBC #### [facility] [address] [place], [place] [address] XR ABDOMEN 1V SUPINE Observed: 10/30/2017 Status: F Source: [place] 6:16 PM [facility] REPOSITORY * * *Final Report* * * DATE OF EXAM: Oct 30 2017 6:16PM [facility] [id number] - XR ABDOMEN 1V SUPINE / PROCEDURE REASON: Constipation * * * * Physician Interpretation * * * * SUPINE ABDOMEN 10/30/2017 HISTORY: Constipation TECHNIQUE: Supine abdomen, 2 image(s). Comparison: RESULT: Findings: No dilated gas-filled are stool-filled loops of bowel. Status post cholecystectomy. Embolization coils and aortobiiliac vascular graft remains in situ. No acute findings. IMPRESSION: NO ILEUS OR BOWEL OBSTRUCTION Practice Support Specialist: MURTAZA Transcribe Date/Time: Oct 30 2017 7:36P Dictated by : JJ DOBBS MD This examination was interpreted and the report reviewed and electronically signed by: JJ DOBBS MD on Oct 30 2017 7:37PM EST [id number] [id number] NT Observed: 10/30/2017 Status: COMPLETED Source: [place] 5:36 PM [facility] REPOSITORY HNO ID: [id number] Author: Tamiko SanchezOt/Carlos Nelson Service: Occupational Therapy Author Type: Occupational Therapist Type: Therapy (PT/OT/Speech/Resp) Filed: 10/30/2017 5:40 PM Note Text: Occupational Therapy Evaluation SERVICE DATE: 10/30/2017 SERVICE TIME: 1628 to 1651 ROOM: [place] [address] Recommended Discharge Disposition: Unable to determine due to critical care status Anticipated Discharge Needs: Undetermined OT Recommendations to Nursing: ADL?s in chair;Encourage patient participation with in-bed ADL?s;OOB for meals;With assist of 2 people OT 6 Clicks Score: 17 Precautions/Activity Restrictions: Fall Risk;Lines/Tubes/Drains ASSESSMENT: Highest Level of Mobility (-HLM) This scale indicates the objective performance level this date and does not reflect clinical judgment of capability. Today the patient scored a 4 on the JH-HLM. Explanations are noted in the chart below. Criteria Score Walk 250+ feet 8 25+ feet 7 10+ steps 6 Stand > 1 minute 5 Chair Transfer to chair 4 Bed Sitting at EOB 3 Turning self/bed activity* 2 Only laying 1 *Includes PROM/AROM, bed exercises and UE/LE movement Upon assessment, patient presents with impaired Strength/Tone, Edema, Pain, Sensation, Balance, Functional Mobility and Activity Tolerance, affecting their ability to complete ADLs/IADLs safely without assistance from caregivers. Patient demonstrates significant LE/UE weakness and fatigues easily. Patient demonstrates mild anxiety related to mobility and pain. Pt also requires monitoring of vital signs due to fluctuations with activity and instructions/ education regarding safe activity dosing. Pt wishes to return home but needs exceed resources available at this time. Pt requires skilled therapy to address current functional limitations, identify coping skills to progress through current impairments as well as to increase independence with ADLs within safe limits. Multiple methods of instruction needed due to critical illness, anxiety. Patient would benefit from additional skilled OT while admitted and over the course of care, therapist will continue to assess to determine appropriate discharge destination. Unable at this time due to critical care status. Vital Signs Pre Assessment: Heart Rate, BP, SpO2, O2 Equipment Pre Heart Rate: 101 Pre BP: 147/72 Pre BP Position: Sitting Pre SpO2: 100 Pre O2 Equipment: Nasal Cannula Post Assessment: BP Post Post BP: 149/72 Post BP Position: Supine Patient Disposition at Start of Session: OOB in Chair Patient Disposition at End of Session: Supine in Bed;Call Wagoner in Reach Tolerated Full Session Occupational Therapy Problem List: Edema;Impaired Self Care;Decreased Activity Tolerance;Decreased Strength;Functional Mobility Impairment;Balance Impaired Patient /Caregiver Goals: Go Home Goals for Plan of Care: Able to perform HEP with: Modified Independent Grooming with: Modified Independent Upper Body Bathing with: Modified Independent Upper Body Dressing with: Modified Independent Lower Body Bathing with: Modified Independent Lower Body Dressing with: Modified Independent Toilet Hygiene with: Modified Independent Toilet Transfer with: Modified Independent Tolerate (minutes of functional activity): 12 Functional Activity with: Modified Independent Demonstrate Positive Coping Strategies with: Modified Independent Demonstrate Competence With Education with: Modified Independent Rehab Potential: Good PLAN: Treatment Frequency (times per week): 2 (+ 2 PRN per week) Current admission Treatment Interventions: Education;Self Care / Home Management;Energy Conservation Training;Strengthening;Functional Mobility Training;Balance Training;Edema Management;Pain Management Plan of Care developed with: Patient TREATMENT INTERVENTIONS: Therapy Diagnosis: Decreased activities of daily living (ADL) Interventions Provided: Evaluation;Therapeutic Activity (83949) $ Evaluation-Moderate (77040) Billed Units: 1 unit Therapeutic Activity (06259) Treatment Minutes: 8 1 unit Skilled Intervention(s): Instructed patient in sit to supine using safe, effective technique Instruction in sit to stand technique with proper hand placement and body positioning at edge of bed/chair, trialed w A x 1, unable; completed w max A x 2 + A of RN for line mgmt Instruction in stand to sit technique with lower extremities touching chair/bed and reaching back for surface Provided intervention for line management and vital sign monitoring throughout session to ensure safe mobility prescription and hemodynamic tolerance during above interventions. Facilitation of therapeutic use of self, active listening, and therapeutic touch throughout session to promote and increase rapport, increase feelings of control by providing choices, provide reassurance, positive reinforcement and encouragement to increase participation/motivation in OT session. Facilitation of positive reinforcement and optimism regarding positive gains during session and promoting positive outlook during admission despite complicated medical barriers Facilitated positioning in supine after session for safety, comfort, and pressure relief: heels off loaded, HOB 30 degrees Positioned pt's BLE in elevated on pillow to decrease risk of edema and skin breakdown Education in OT role, benefits of OOB, rehab POC, d/c recommendation, importance of participation in functional activity, call light use/up with assist only Total Timed Code Treatment Minutes: 8 Total Treatment Time (minutes): 23 FUNCTIONAL G CODE: OT 6 Clicks Score: 17 (10/30/171627) Self Care Current Status (G8987): CK (10/30/171627) Self Care Goal Status (G8988): CJ (10/30/171627) Based on clinical assessment and the score on the 6 Clicks Functional Assessment Tool, the G code and corresponding severity modifiers are documented above. SUBJECTIVE: Current Hospital Course: Chart reviewed; Patient is a 27 year old female admitted with RP bleed from colver, HG drops/trending down, requiring multiple units RBCs over last few days, hg today 7.6, patient with incr back pain- mc kay stitcher pump Reason for Occupational Therapy Consult: decr adl performance, coping Relevant Past Medical History: DAH, CAPRICE HIT, CKD, HF, HTN, polyneuropathy Patient Report: I just sat for too long. I've reached my limit and I'm paying for it. 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 Entry To Home: No Stairs Number Of Stairs To Bed/Bath: 0 Tub/Shower Type: walk in shower Equipment Owned: Commode-Raised;Grab Bars-Shower;Grab Bars-Toilet;Shower Chair;Home Oxygen Prior Functional Level: Required Assistance Assistance Required With: Cleaning;Laundry;Meals;Shopping;Transportation Prior Wound Care: Other: See Comment (unable to don compression stockings (I)) OBJECTIVE: Orientation Deficits: Not oriented to Time Responsiveness: Alert Follows Commands: 3-step Commands;Cueing Needed Cueing to Follow Commands: Minimum Psychosocial Deficit: depressed, anxious CURRENT FUNCTIONAL STATUS: Current Activities of Daily Living Assist Level Feeding Set Up Grooming Set Up Bathing Upper Body Minimal Assistance Bathing Lower Body Moderate Assistance Dressing Upper Body Minimal Assistance Dressing Lower Body Maximal Assistance Toileting Maximal Assistance Instrumental Activities of Daily Living Assist Level Meal/Beverage Prep Light Cleaning Laundry Medication Management with Strategies Functional Mobility Assist Level Rolling Supine to Sit Sit to Supine Moderate Assistance (A x 2) Scooting Moderate Assistance Sit to Stand Maximal Assistance (A x 2) Stand to Sit Maximal Assistance (A x 2) Bed to Chair Maximal Assistance (A x 2) Stand Pivot Toilet/Commode Functional Mobility Please see discipline specific clinical documentation flowsheet for complete details for this therapy evaluation/treatment. SIGNATURE: Tamiko Nelson OT/Allie PATIENT NAME: Paloma Cannon DATE: October 30, 2017 TIME: 5:36 PM PAGER: [phone] PLAN OF CARE Observed: 10/30/2017 Status: COMPLETED Source: [place] 4:32 PM [facility] REPOSITORY O ID: [id number] Author: Jcarlos Rand (Ammonium Hydroxide Operator) Service: (none) Author Type: (none) Type: Plan of Care Filed: 10/30/2017 4:50 PM Note Text: Attestation signed by Rebekah Parada (Pharmacist) at 10/31/2017 7:35 AM MEDICATION RECONCILIATION Patient Name: Paloma Cannon : 1990 I confirm and agree with the information below. Reconciliation: Yes All WARP DYEING VAT TENDER medications addressed by LIP Additional comments: N/A Allergies: ALLERGIES Allergen Reactions - Rhubarb Rash, Hives - Heparin Other: See Comments Per patient history of HIT - was on angiomax however then took l fondaparinux for bridging to coumadin. - Iv Contrast [Iodine] Other: See Comments shuts kidneys down per patient - Rituximab Other: See Comments Elevated cardiac enzymes Current WARP DYEING VAT TENDER Medications: Prior to Admission medications as of 10/23/17 0602 Medication Sig Last Dose Taking cyclophosphamide (CYTOXAN) 50 mg capsule Take 150 mg by mouth once daily. Yes diphenhydrAMINE (BENADRYL) 50 mg capsule Take 1 capsule by mouth every 6 hours as needed for Itching/Rash. Unknown at Unknown time gabapentin (NEURONTIN) 100 mg capsule Take 1 capsule by mouth three times daily for 7 days. Patient taking differently: Take 100 mg by mouth three times daily. Patient taking 400 mg in the morning, and 300 mg at noon and in the evening Unknown at Unknown time predniSONE (DELTASONE) 20 mg tablet Take 4 tablets by mouth once daily for 8 days. Patient taking differently: Take 100 mg by mouth once daily. Unknown at Unknown time ondansetron (ZOFRAN, HYDROCHLORIDE,) 8 mg tablet Take 8 mg by mouth every 8 hours as needed for Nausea/Vomiting. Unknown at Unknown time pantoprazole DR (PROTONIX) 40 mg tablet Take 40 mg by mouth daily at bedtime. Unknown at Unknown time sulfamethoxazole-trimethoprim (BACTRIM DS) 800-160 mg per tablet Take 1 tablet by mouth every Monday,Monday,Monday. Unknown at Unknown time fluticasone (FLONASE) 50 mcg/actuation nasal spray Use 1-2 Sprays in each nostril once daily as needed for Cold/Allergy Symptoms (starting in allergy season). Unknown at Unknown time senna 8.6 mg tab Take 1 tablet by mouth twice daily as needed. Unknown at Unknown time Rebekah Parada, [place] (Critical Care Pharmacist) - [id number] October 31, 2017 7:34 AM MEDICATION HISTORY Patient Name:Karyna Cannon : 1990 Source of history:Patient: Reliability of source: Appears reliable, clearly identified: Medication name, Medication dose, Medication route and Medication frequency Medication Nonadherence Identified: No barriers noted The above information represents the best possible medication history: Yes Additional comments: Active medications: Cyclophosphamide 150 mg po daily Diphenhydramine 50 mg po q6h prn for itching/rash Flonase 50 mcg/actuation 1-2 sprays in each nostril once daily prn for cold/allergy Fondaparinux 7.5 mg sc daily Gabapentin: 400 mg po in AM, 300 mg po around 12pm, and 300 mg po in the evening Ondansetron 8 mg po q8h prn for nausea/vomiting Pantoprazole DR 40 mg po hs Prednisone: 100 mg po daily Senna 8.6 mg bid prn Sulfamethoxazole/trimethoprim DS 1 tab po M// Allergies: ALLERGIES Allergen Reactions - Rhubarb Rash, Hives - Heparin Other: See Comments Per patient history of HIT - was on angiomax however then took l fondaparinux for bridging to coumadin. - Iv Contrast [Iodine] Other: See Comments shuts kidneys down per patient - Rituximab Other: See Comments Elevated cardiac enzymes Preferred Pharmacy: [facility]- [address], [place] [address] - [phone] - [phone] Current WARP DYEING VAT TENDER Medications: Prior to Admission medications as of 10/23/17 0602 Medication Sig Last Dose Taking cyclophosphamide (CYTOXAN) 50 mg capsule Take 150 mg by mouth once daily. Yes warfarin (COUMADIN) 5 mg tablet Take 5 mg by mouth daily as directed. Alternate 5 mg and 7.5 mg every other day Yes diphenhydrAMINE (BENADRYL) 50 mg capsule Take 1 capsule by mouth every 6 hours as needed for Itching/Rash. Unknown at Unknown time gabapentin (NEURONTIN) 100 mg capsule Take 1 capsule by mouth three times daily for 7 days. Patient taking differently: Take 100 mg by mouth three times daily. Patient taking 400 mg in the morning, and 300 mg at noon and in the evening Unknown at Unknown time predniSONE (DELTASONE) 20 mg tablet Take 4 tablets by mouth once daily for 8 days. Patient taking differently: Take 100 mg by mouth once daily. Unknown at Unknown time ondansetron (ZOFRAN, HYDROCHLORIDE,) 8 mg tablet Take 8 mg by mouth every 8 hours as needed for Nausea/Vomiting. Unknown at Unknown time pantoprazole DR (PROTONIX) 40 mg tablet Take 40 mg by mouth daily at bedtime. Unknown at Unknown time sulfamethoxazole-trimethoprim (BACTRIM DS) 800-160 mg per tablet Take 1 tablet by mouth every Monday,Monday,Monday. Unknown at Unknown time fluticasone (FLONASE) 50 mcg/actuation nasal spray Use 1-2 Sprays in each nostril once daily as needed for Cold/Allergy Symptoms (starting in allergy season). Unknown at Unknown time senna 8.6 mg tab Take 1 tablet by mouth twice daily as needed. Unknown at Unknown time Jcarlos Rand (Ammonium Hydroxide Operator) October 30, 2017 4:32 PM PROGRESS Observed: 10/30/2017 Status: COMPLETED Source: [place] 12:41 PM [facility] REPOSITORY O ID: [id number] Author: Austen Choudhury Service: Critical Care Author Type: Physician Type: Progress Notes Filed: 10/30/2017 1:40 PM Note Text: SERVICE DATE: 10/30/2017 SERVICE TIME: 12:41 PM MICU PROGRESS NOTE Admission Date: 10/25/2017 Hospital Day # 5 SUBJECTIVE Interval HPI: Still c/o of abdominal pain this am OBJECTIVE Vital Signs (last filed) Range in last 24h Temp: 36.9 ?C (98.4 ?F) (10/30/17 1200) Temp Min: 36.3 ?C (97.3 ?F) Max: 37.2 ?C (99 ?F) Pulse: 97 (10/30/17 1000) Pulse Min: 83 Max: 112 Resp: 23 (10/30/17 1000) Resp Min: 19 Max: 55 BP: 135/71 (10/30/17 1000) BP Min: 129/74 Max: 176/77 MAP Non Invasive (Mean Arterial Pressure): 97 (10/30/17 1000) MAP Non Invasive (Mean Arterial Pressure) Min: 91 Max: 112 No Data Recorded SpO2: 98 % (10/30/17 1000) SpO2 Min: 88 % Max: 99 % Pain Score: 0/10 (10/30/17 0950) Fluid Balance: Intake/Output Summary (Last 24 hours) at 10/30/17 0659 Last data filed at 10/30/17 0600 Gross per 24 hour Intake 705 ml Output 8343 ml Net -7638 ml Last Weight: 107.6 kg (237 lb 3.4 oz) (10/30/17 0600) Admit Weight: 112.2 kg (247 lb 5.7 oz) (10/25/17 2327) DIET REGULAR Lines, Drains, and Airways Line Central Line Single Lumen 10/25/17 2314 Tunneled Left Chest 4 days Dialysis / Apheresis Double Lumen 10/25/17 2314 Admission to Hospital Left Chest 4 days Peripheral 10/30/17 0745 Left Forearm less than 1 day Drain Indwelling Urinary Catheter 10/23/17 0520 Assessment Zuniga 7 days Vent/Oxygen: Supplemental Oxygen: Yes. FiO2 5L NC No Data Recorded Physical Examination Performed Oral Mucosa: Moist mucous membranes Eyes: PERRLA Neck: Unremarkable; No adenopathy or JVD Cardiovascular: Regular rhythm Respiratory: Clear to auscultation Abdomen: Soft and Positive bowel sounds, TTP Extremities: Edema- Yes Peripheral Pulses- Present all extremities Skin: Abnormalities- Yes Breakdown- No Neurologic: Awake, oriented, Alert, Follows commands and Moving all extremities Infusion Medications HYDROmorphone WAITER/WAITRESS CABIN CLASS 0.5 mg/mL NaCl 0.9% Last Rate: 10 mL/hr (10/29/17 0000) Diagnostic tests reviewed today: Most recent labs and imaging results. PATIENT CHECKLIST ? Are restraints necessary: No ? Deep vein thrombosis prophylaxis administered? No. Contraindicated. ? Stress ulcer prophylaxis? No, not indicated. ? Nasogastric tube? No ? Zuniga catheter necessary? No ? Is central line essential? No ? Plan discussed with assigned RN? Yes ? Family updated within last 24 hours? Yes CARE COORDINATION: Patient Summary: 27 year old female with a PMHx significant for: - Anti-phospholipid syndrome c/b DVT/PE requiring extensive percutaneous thrombectomy of her IVC and lower extremity veins followed by b/l iliac venous stents and endograft into her IVC, on long-term anti-coagulation (recently changed to fondaparinux from coumadin on 10/13 admission) and IVC, plasmapheresis q2 weeks, prednisone 5mg daily - DAH - on cyclophosphamide and prednisone, has had 6 episodes of respiratory decline since 2013, last admission for hemoptysis on 10/13/17, on 2 L at night and with exertion - HIT - CKD 3, 2/2 renal vein thrombosis and contrast-induced nephropathy - HFpEF - HTN - Peripheral neuropathy - post-thrombotic syndrome Transferred from [place] for ongoing L RP bleeding. Major Interval Events: 10/26: Transferred from [place]. Hgb down to 5.5. 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 Alicea PLAN: - cyclophosphamide 150mg daily (ok per heme and Dr. Alicea) - Continue prednisone 80mg qd - CVVH HTN (hypertension) 10/08/2015 - Present Overview Mildly decreased systolic function, diastolic function indeterminate on 10/13/17 ECHO. 10/28: Run of SBP in 200s overnight (likely d/t pain), given hydralazine however still consistently in 170s-180s 10/29: Still hypertensive, required 4 doses of hydralazine overnight Current Assessment AND Plan PLAN: - amlodipine to 10 mg daily - Hydralazine prn - cont pain regimen CAPRICE (acute kidney injury) (HCC) 10/08/2015 - Present Overview CAPRICE on CKD III, 2/2 contrast, now requiring dialysis First HD at [facility] on 10/25 with tunneled dialysis catheter placement CT Abdomen/pelvis from 10/26 showed occlusion of B/L renal veins, outflow not appreciated- could be attributing to CAPRICE and CKD Bladder scan Current Assessment AND Plan Assessment: CAPRICE on CKDIII secondary to FABY, now on dialysis PLAN: - Nephrology following, increased UF to 350 - CVVHD - Monitor I/Os - sevelamer TID 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 - Present Current Assessment AND Plan PLAN: - Avoid heparin and heparin-like products Peripheral neuropathy 04/14/2016 - Present Current Assessment AND Plan PLAN: - Continue neurontin Anti-phospholipid antibody syndrome (HCC) 10/25/2017 - Present Current Assessment AND Plan PLAN: - Plasmapheresis q2 weeks (Heme will arrange for possible PLEX Monday 10/30) - Continue prednisone 80mg daily - Hold anticoagulation until resolution of retroperitoneal bleed - Hematology following, appreciate recs - Vascular med has signed off Retroperitoneal hematoma 10/26/2017 - Present Overview Retroperitoneal bleed: s/p 7 units PRBCs s/p IR emobolization of left L3 artery at [facility] on 10/23 IR embolization of left L2 and L3 arteries on 10/26 Current Assessment AND Plan Assessment: secondary to anticoagulation PLAN: - Monitor CBC and transfuse for Hgb<7 - Premedicate for transfusions - Hold anticoagulation - Heme following, appreciate recs - Increased gabapentin per pain management for associated abdominal pain, cont to wean off WAITER/WAITRESS CABIN CLASS pump Right groin pain 10/27/2017 - Present Overview 10/27: C/o acute pain this morning, access site for embolization at [facility], no erythema or induration appreciated on exam, exquisitely TTP Groin study showed no signs of PSA, known AV fistula visualized with retrograde flow, vascular med aware- no further recs 10/28: pain less severe, no physical exam findings Current Assessment AND Plan PLAN: - Pedal pulse checks Q2 - Vascular med has signed off - No additional recs from vascular surgery - cont pain regimen Moraxella catarrhalis pneumonia (HCC) 10/29/2017 - Present Current Assessment AND Plan PLAN: - Ceftriaxone (10-26-*) - dose adjusted to 2g per nephrology recs - CXR Plan of care discussed with: Patient and ICU Team SIGNATURE: Christine Walker PA-C PATIENT NAME: Paloma Cannon DATE: October 30, 2017 TIME: 12:41 PM PAGER/CONTACT #: [phone] DR. FRED STONE, SR. HOSPITAL STAFF PHYSICIAN NOTE OF PERSONAL INVOLVEMENT IN CARE I have reviewed the progress note obtained and documented by the physician child nutrition assistant and I personally participated in the fernandes components. I have discussed the case and management of the patient's care. The following comments revise or confirm relevant fernandes components of the note. IMPRESSION: 27 yo woman with APS with Hx of VTE, DAH, HIT, CAPRICE on CKD. Transfer to MICU for retroperitoneal bleeding now s/p coiling of bleeding vessels (last embolization on 10/26/2017). IVC thrombus s/p IVC filter. Persistent abdominal pain on WAITER/WAITRESS CABIN CLASS pump. On 3 L/min of O2. Moraxella lung infection under treatment with ceftriaxone. Treated with ciclyphosphamide / steroids / plasmapheresis. Persistent acute blood loss anemia. CT abdomen 10/27 showedGROSSLY STABLE SIZE OF LARGE, ACUTE/SUBACUTE LEFT RETROPERITONEAL HEMATOMA. ?NO NEW HEMATOMA IS IDENTIFIED. CAPRICE (contrast induced / ATN) on CVVHD. PLAN: Bowel regimen.Wean O2 as tolerated. Patient/Family Updated: Pt was updated. This patient has a high probability of sudden, clinically significant deterioration, which requires the highest level of physician preparedness to intervene urgently. I managed/supervised life or organ supporting interventions that required frequent physician assessment. I devoted my full attention to the direct care of this patient for the amount of time indicated below. Time I spent with family or surrogate(s) is included only if the patient was incapable of providing the necessary information or participating in medical decision making. Time devoted to teaching and to any procedures I billed separately is not included. Critical Care Documentation: The patient has the following organ/system impairment(s): Acute blood loss, Acute kidney injury, Coagulopathy and Respiratory failure (Acute, with Hypoxemia) Time spent providing critical care services: 40 minutes. SIGNATURE: Austen Choudhury MD [facility] PAGER:[phone] DATE of SERVICE: October 30, 2017 THERAPY NT Observed: 10/30/2017 Status: COMPLETED Source: [place] 11:34 AM [facility] REPOSITORY HNO ID: [id number] Author: Brenda Meraz Service: Physical Therapy Author Type: Physical Therapist Type: Therapy (PT/OT/Speech/Resp) Filed: 10/30/2017 11:47 AM Note Text: Physical Therapy Evaluation SERVICE DATE: 10/30/2017 SERVICE TIME: 0950 to 1028 ROOM: [place] [address] Recommended Discharge Disposition: Unable to determine due to critical care status Justification For Post Acute Needs: Willing to participate;Motivated;Good family support;Cognition intact Anticipated Discharge Needs: Undetermined PT Recommendations to Nursing: With assist of 1 person;Transfer to/from chair;OOB for Meals PT 6 Clicks Score: 11 Precautions/Activity Restrictions: Fall Risk;Lines/Tubes/Drains ASSESSMENT : Patient presents with impaired Strength/Tone, Cognitive/Perceptual, Balance, Coordination, Functional Mobility and Activity Tolerance.impacting the ability to function without assistance from caregivers. Patient requires Max assist with all functional mobility including Maximum: Tactile, Verbal for safety. Pt also requires instructions/ education regarding safe activity dosing. Pt wishes to return home but needs exceed resources available at this time. Pt requires skilled therapy to address current functional limitations and impairments as well as to progress activities within safe limits. Will determine discharge when appropriate. Patient Disposition at Start of Session: Supine in Bed Patient Disposition at End of Session: OOB in Chair Tolerated Full Session Physical Therapy Problem List: Cognitive Deficit;Education Deficit;Decreased Activity Tolerance;Decreased Strength;Functional Mobility Impairment Patient /Caregiver Goals: Go Home Goals for Plan of Care: Rolling with: Independent Transfer supine to/from sit with: Independent Transfer sit to/from stand with: Contact Guard Assistance Ambulate with: Contact Guard Assistance Distance: 10 Device: Wheeled Walker Rehab Potential: Excellent Based on prior level of function and motivation PLAN: Treatment Frequency (times per week): 2 Treatment Duration (number): 2 Weeks Treatment Interventions: Education;Energy Conservation Training;Strengthening;Functional Mobility Training;Balance Training Plan of Care developed with: Patient TREATMENT INTERVENTIONS: Therapy Diagnosis: Reduced mobility-other Interventions Provided: Therapeutic Activity (09384);Re-evaluation Therapeutic Activity (19214) Treatment Minutes: 23 2 units Skilled Intervention(s): Education on the role of PT and the importance of mobility. Bed mobility with VC for good Log roll technique and LE advancement mod assist provided to achieve erect posture. Verbal cueing for slow controlled movements to decrease dizziness. Verbal cueing for deep breathing and forward gaze. Education on proper technique for transfer. Sit to stand transfer with mod assist and max verbal cueing for quad set and glut set. Pivot transfer with mod assist and max tactile cueing for lateral weight shift and balance. Extra time required throughout session due to complex line management and room setup. Education on OOB activities and increasing independence and strength. Skilled intervention for ICU line/room setup for safe mobility environment as well as for vital sign monitoring to assess hemodynamic and respiratory response to activity to prescribe safe intensity and duration of activity/exercise during above interventions. Will determine discharge when appropriate. Highest Level of Mobility (-HLM) This scale indicates the objective performance level this date and does not reflect clinical judgment of capability. Today the patient scored a 4 on the -HLM. Explanations are noted in the chart below. ? ? Criteria Score Walk 250+ feet 8 ? 25+ feet 7 ? 10+ steps 6 Stand > 1 minute 5 Chair Transfer to chair 4 Bed Sitting at EOB 3 ? Turning self/bed activity* 2 ? Only laying 1 *Includes PROM/AROM, bed exercises and UE/LE movement Total Timed Code Treatment Minutes: 23 Total Treatment Time (minutes): 38 FUNCTIONAL G CODE: PT 6 Clicks Score: 11 (10/30/17 0950) Mobility: Walking and Moving Around Current Status (G8978): CL (10/30/17 0950) Mobility: Walking and Moving Around Goal Status (G8979): CK (10/30/17 0950) Based on clinical assessment and the score on the 6 Clicks Functional Assessment Tool, the G code and corresponding severity modifiers are documented above. SUBJECTIVE: Current Hospital Course: Chart reviewed; , 27 year old female?with a PMHx significant for: - Anti-phospholipid syndrome c/b DVT/PE requiring extensive percutaneous thrombectomy of her IVC and lower extremity veins followed by b/l iliac venous stents and endograft into her IVC, on long-term anti-coagulation (recently changed to fondaparinux from coumadin on 10/13 admission)?and IVC, plasmapheresis q2 weeks, prednisone 5mg daily - DAH - on cyclophosphamide and prednisone, has had 6 episodes of respiratory decline since 2013, last admission for hemoptysis on 10/13/17, on 2 L at night and with exertion - HIT - CKD 3, 2/2 renal vein thrombosis and contrast-induced nephropathy - HFpEF - HTN - Peripheral neuropathy - post-thrombotic syndrome Transferred from [place] for ongoing L RP bleeding. ? Major Interval Events: 10/26: Transferred from [place]. Hgb down to 5.5. CTA showing active extravasation, IR embolization of left L2, L3 arteries 4/20: Hgb 6.6, continued to transfuse PRBCs, acute onset right groin pain 10/28: Hgb 6.5, additional PRBCs given, Hgb stable 7.5 after transfusion 10/29: Hgb 6.9, plt 18, transfused 1U pRBCs and 1U plts Patient Report: I am so happy to be out bed patient agreeable to PT session 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 Entry To Home: No Stairs Number Of Stairs To Bed/Bath: 0 Tub/Shower Type: walk in shower Equipment Owned: Commode-Raised;Grab Bars-Shower;Grab Bars-Toilet;Shower Chair;Home Oxygen Prior Functional Level: Required Assistance Assistance Required With: Cleaning;Laundry;Meals;Shopping;Transportation Prior Wound Care: Other: See Comment (unable to don compression stockings (I)) OBJECTIVE: CURRENT FUNCTIONAL STATUS: further mobility deferred due to concerns for patient safety and tolerance Current Functional Mobility Assist Level Additional Information Rolling Moderate Assistance Supine to Sit Moderate Assistance Sit to Supine Scooting Moderate Assistance Sit to Stand Moderate Assistance Stand to Sit Moderate Assistance Bed to Chair Moderate Assistance Toilet/Commode Gait Stairs Curb Step Car Transfer Please see discipline specific clinical documentation flowsheet for complete details for this therapy evaluation/treatment. SIGNATURE: Brenda Meraz PT PATIENT NAME: Paloma Cannon DATE: October 30, 2017 TIME: 11:34 AM PAGER/CONTACT #: [phone] CASE MANAGEM Observed: 10/30/2017 Status: COMPLETED Source: [place] 11:16 AM [facility] REPOSITORY O ID: [id number] Author: Lisseth Coto (Sw) Service: Case Management Author Type: Toolmaker Helper Type: Care Mgt Progress Note Filed: 10/30/2017 11:24 AM Note Text: CARE MANAGEMENT PROGRESS NOTE SERVICE DATE: 10/30/2017 SERVICE TIME: 11:16 AM LOS: 5 days Needs Prior to Discharge: To Be Determined Pt is a on 3L NC. Continuing to trend Hgb and transfuse as needed (most recent 7.6). Pt continuing to have uncontrolled pain. CVVHD started on 10/26, pt remains on CVVHD. DC needs TBD. ERIKA will continue to follow. SIGNATURE: JUAN PABLO Romo PATIENT NAME: Paloma Cannon DATE: October 30, 2017 TIME: 11:16 AM PAGER/CONTACT #: [phone] CBC Collected: 10/30/2017 Status: F Source: [place] 11:15 AM [facility] REPOSITORY TYPE CODE TESTS RESULT OUT OF REFERENCE UNITS RANGE LAB WBC 3.70-11.00 k/uL WBC High 17.89 LAB RBC 3.90-5.20 m/uL Low RBC 2.36 LAB HGB 11.5-15.5 g/dL Low Hemoglobin 7.2 LAB HCT 36.0-46.0 % Low Hematocrit 22.5 LAB MCV 80.0-100.0 fL MCV 95.3 LAB MCH 26.0-34.0 pG MCH 30.5 LAB MCHC 30.5-36.0 g/dL MCHC 32.0 LAB RDWCV 11.5-15.0 % RDW-CV High 22.8 LAB PLTCT 150-400 k/uL Low Platelet Count 15 Result Comment: Result checked and verified No clot detected. No call per procedure. 10/30/17 1238 Raji LAB MPV 9.0-12.7 fL MPV <<DO NOT REPORT>> LAB ABSNUC <0.01 k/uL 2.84 High Absolute nRBC Result Comment: Reviewed Performed By: #### CBC #### [facility] [address] [place], [place] [address] THERAPY NT Observed: 10/30/2017 Status: COMPLETED Source: [place] 11:10 AM [facility] REPOSITORY HNO ID: [id number] Author: Tamiko SanchezPtDevonte Son Service: Physical Therapy Author Type: Physical Therapist Type: Therapy (PT/OT/Speech/Resp) Filed: 10/30/2017 11:20 AM Note Text: Physical Therapy Wound/Lymph Evaluation SERVICE DATE: 10/30/2017 SERVICE TIME: 829 to 24 ROOM: [place] [address] Recommended Discharge Disposition Comments: will require further assessment Anticipated Discharge Needs: Undetermined 6 Clicks Score: 16 Skin Condition: BLE lymphedema Frequency of Dressing Change:Daily - compression wraps to be worn during the day hours Physical Therapy to Perform Dressing Change: 4x/week to be coordinated with nursing Nursing to Perform Dressing Change:1x/day Monday and Monday Dressing/Treatment Type: See Clinical Documentation report for specific dressing information. ASSESSMENT : Patient presents with impaired Strength/Tone, Edema, Pain, Balance, Functional Mobility and Activity Tolerance and Stage II Lymphedema in BLE impacting patients generalized mobility and skin integrity. Patient requires PT intervention/ monitoring of the lymphedema due their current clinical presentation including complex decongestive therapy , physiotherapy, compression bandaging and skin care. Pt also would benefit from instructions/ education regarding safe activity dosing. Pt wishes to return home but needs exceed resources available at this time. Pt would benefit from skilled therapy to address current functional limitations and impairments as well as to progress activities within safe limits. Recommend SNF placement at d/c to address patients functional impairments. Patient Disposition at Start of Session: Supine in Bed Patient Disposition at End of Session: Supine in Bed;Call Wagoner in Reach Tolerated Full Session Physical Therapy Problem List: Edema;Pain;Decreased Activity Tolerance;Impaired Self Care;Decreased Strength;Functional Mobility Impairment;Balance Impaired Patient /Caregiver Goals: Unique to general PT Goals for Plan of Care: 1. Decongestion of BLE with girth measurements decreased by 2-4 cm per segment to increase level of independence with functional mobility and ADL's, decrease pain, decrease recurrence of infection, improved range of motion and allow appropriate fit in compressive garment. 2. Pt and/or caregiver will demonstrate compliance in knowledge of lymphedema precautions including meticulous skin and nail care to reduce risk of infection and further exacerbation. 3. Pt and/or caregiver will demonstrate the correct method of Lymphatic Bandaging/compression technique and independent understanding of the principles and theory of compression 4. Pt and/or caregiver will be independent in their exercise program to enchance Lymphatic flow and decongestion of the affected body parts 5. Patient/ Caregiver will be able to demonstrate competence with offloading recommendations and pressure relieving strategies 6. Patient/ Caregiver will be able to state the signs and symptoms of infection Rehab Potential: Fair PLAN: Treatment Frequency (times per week): 4 Current admission Treatment Interventions: Education;Self Care / Home Management;Joint Mobility;Strengthening;Functional Mobility Training;Balance Training;Edema Management;Pain Management Plan of Care developed with: Patient TREATMENT INTERVENTIONS: Interventions Provided: Evaluation;Self Nursing Home Management (16897);Manual Therapy (54271) $ Evaluation-High (32225) Billed Units: 1 unit Self Nursing Home Management (60225) Treatment Minutes: 14 1 unit Skilled Intervention(s): Educated patient on the following aspect of Complete Decongestive Therapy (CDT): 1. Proper skincare guidelines: Meticulous skin/nail care, Elimination of infection , Avoidance of cuts, scrapes, incisions, bites on affected extremity and Proper application of moisturizing lotion. 2. Decongestive Exercises: Discussed rationale for performing exercises and Recommended performing exercises in conjunction with compression bandage or garment Education provided and patient instructed in the following today: -Lymphedema including the signs/ symptoms, causes, and treatments options. -Lymphedema risk reduction education and treatment: -Precautions/general education related to diagnosis of lymphedema -Provided proper skin/ nail care guidelines and education related to involved extremity. -Recognition of the signs of infection/cellulitis/DVT. -Avoidance of cuts, scrapes, incisions, bites on affected extremity. -Proper application of moisturizing lotion. -Elevation and edema control measures for involved extremity. Written handouts provided Manual Therapy (77552) Treatment Minutes: 25 2 units Skilled Intervention: Manual skills to improve joint mobility, range of motion, and decrease pain. Educated patient on the following aspect of Complete Decongestive Therapy (CDT): 1. Compressive Therapy: Discussed rationale for compression garment and bandaging Instructed in proper technique for compression wrapping Skilled interventions: - Increase lymaphtic fluid dynamics - Increase skin extensibility - Utilized anatomy knowledge of the therapist, and assessment of patient's response to intervention. Manual Compression performed: 1. Skin inspected and cleansed thoroughly 2. Applied lotion to BLE 3. Applied 1 rolls of kerlix and 2 ABD pads to provide padding and to build up the ankle + 1 surepress wraps applied at 50% tension with a 50% overlap. Spoke at length with pt re: when to loosen or remove the bandages (i.e.: in the event that pain becomes a limiting factor or pt experienced new onset SOB or worsening of respiratory status). Pt verbalized understanding. Education: 1. Discussed with patient and nursing the risks and benefits of compression therapy and how compression is indicated in this case. 2. Educated patient/ caregiver regarding rationale for compression wrapping. 3. Instructed in proper technique for compression wrapping. Total Timed Code Treatment Minutes: 39 Total Treatment Time (minutes): 54 FUNCTIONAL G CODE: Mobility: Walking and Moving Around Current Status (G8978): CK (10/30/17829) Mobility: Walking and Moving Around Goal Status (G8979): CK (10/30/17829) Based on clinical assessment and the score on the 6 Clicks Functional Assessment Tool, the G code and corresponding severity modifiers are documented above. SUBJECTIVE: Current Hospital Course: Chart reviewed; This is a 27 yo F with past medical history most notable for antiphospholipid syndrome with complications of multiple embolic events on chronic anticoagulation, cyclophosphamide and plasmapharesis. Patient was recently admitted for DAH, acute respiratory failure requiring intubation and within a day of discharge presented with retroperitoneal bleed and acute kidney injury. She required embolization, however is still requiring transfusions, and dialysis for CAPRICE. PT is being consulted to assess for needs in the management of BLE edema vs lymphedema. Active acute issues: Acute blood loss anemia due to retroperitoneal bleed, Acute on chronic kidney injury, Hypoxemia, Chronic DVT in common femoral vein, Uncontrolled hypertension, Pain control on WAITER/WAITRESS CABIN CLASS pump and history of HIT ? Patient Report: Pt was pleasant and cooperative and was agreeable to participate with PT for lymphedema assessment this morning. She did offer c/o back pain which did not interfere with assessment. Pt seen while on tigre dialysis. 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 Entry To Home: No Stairs Number Of Stairs To Bed/Bath: 0 Tub/Shower Type: walk in shower Equipment Owned: Commode-Raised;Grab Bars-Shower;Grab Bars-Toilet;Shower Chair;Home Oxygen Prior Functional Level: Required Assistance Assistance Required With: Cleaning;Laundry;Meals;Shopping;Transportation Prior Wound Care: Other: See Comment (unable to don compression stockings (I)) OBJECTIVE: LLE Circumferential Measurements: Metatarsal Heads;Ankle;10 cm;20 cm;30 cm Left Metatarsal Heads: 22.5cm Left Ankle: 22.5cm Left Lower Extremity 10cm: 28cm Left Lower Extremity 20cm: 43.25cm Left Lower Extremity 30cm: 41.5cm RLE Circumferential Measurements: Metatarsal Heads;Ankle;10 cm;20 cm;30 cm Right Metatarsal Heads: 24cm Right Ankle: 23.25cm Right Lower Extremity 10cm: 28.5cm Right Lower Extremity 20cm: 42cm Right Lower Extremity 30cm: 45.5cm Sensation Sensation: Right Lower Extremity;Left Lower Extremity Right Lower Extremity Sensation: Light Touch RLE Light Touch: Intact Left Lower Extremity Sensation: Light Touch LLE Light Touch: Intact Circulation Pulses: Right Dorsalis Pedis;Left Dorsalis Pedis Right Dorsalis Pedis Pulse: (unable to palpate due to lymphedema; present via doppler) Left Dorsalis Pedis Pulse: (unable to palpate due to lymphedema; present via doppler) Capillary Refill: Right Lower Extremity;Left Lower Extremity Right Lower Extremity Capillary Refill: Intact Left Lower Extremity Capillary Refill: Intact See Clinical Documentation report for Skin Documentation. Current Functional Mobility Assist Level Additional Information Rolling Supine to Sit Sit to Supine Scooting Sit to Stand Stand to Sit Bed to Chair Toilet/Commode Gait Please see discipline specific clinical documentation flowsheet for complete details for this therapy evaluation/treatment. SIGNATURE: Tamiko Son PT PATIENT NAME: Paloma Cannon DATE: October 30, 2017 TIME: 11:10 AM PAGER/CONTACT #: [phone] XR CHEST 1V FRONTAL Observed: 10/30/2017 Status: F Source: [facility] 10:42 AM [facility]INIC MA[facility] REPOSITORY * * *Final Report* * * DATE OF EXAM: Oct 30 2017 10:42AM HALINA [id number] - XR CHEST 1V FRONTAL PORT / PROCEDURE REASON: Pneumonia * * * * Physician Interpretation * * * * EXAMINATION: CHEST RADIOGRAPH (PORTABLE SINGLE VIEW AP) Exam Date/Time: 10/30/2017 10:42 AM Indication: Pneumonia MQ: [id number] Comparison: 10/24/2017 RESULT: See impression. IMPRESSION: Lines, tubes, and devices: 2 left-sided central venous catheters are unchanged in positions. Lungs and pleura: Mild bilateral perihilar reticular and hazy alveolar opacities are suggestive of pulmonary interstitial edema. No large pleural effusions. No pneumothorax and no significant interval change. Cardiomediastinal silhouette: Stable cardiomediastinal silhouette. Other: . Practice Support Specialist: PSCB Transcribe Date/Time: Oct 30 2017 11:34A Dictated by : STELLA COSME MD This examination was interpreted and the report reviewed and electronically signed by: STELLA COMSE MD on Oct 30 2017 11:35AM EST [id number] CONSULT PROG Observed: 10/30/2017 Status: COMPLETED Source: [place] 8:29 AM [facility] REPOSITORY HNO ID: [id number] Author: Aj Keenan Service: Hematology Author Type: Physician Type: Consult Progress Note Filed: 10/30/2017 6:43 PM Note Text: ? [facility] DEPARTMENT OF HEMATOLOGIC ONCOLOGY AND BLOOD DISORDERS ? Hematology Consult Follow Up ? ? Patient name: Paloma Cannon : 1990 Date of Service: 10/30/2017 Supervising attending physician: Dr. Keenan ? INTERVAL HISTORY: Continues to complain of pain in the back and R groin Received 1 U of PRBC and 1 U of platelets yesterday in the evening Current hospital medications: cefTRIAXone 2 g in D5W 100 mL MB+ (ROCEPHIN) 2 g INTRAVENOUS q 24 H docusate sodium 100 mg cap(s) (COLACE) 100 mg ORAL BID hydrALAZINE 10 mg injection (APRESOLINE) 10 mg INTRAVENOUS q 2 H PRN cyclophosphamide 150 mg cap(s) (CYTOXAN) 150 mg ORAL DAILY amLODIPine 10 mg tab(s) (NORVASC) 10 mg ORAL/FEEDING TUBE DAILY senna 8.6 mg tab(s) (SENOKOT) 8.6 mg ORAL/FEEDING TUBE BID pantoprazole DR 40 mg tab(s) (PROTONIX) 40 mg ORAL DAILY (6 AM) ondansetron 8 mg tab(s) (ZOFRAN) 8 mg ORAL q 8 H PRN diphenhydrAMINE 50 mg (BENADRYL) 50 mg ORAL/FEEDING TUBE q 6 H PRN sulfamethoxazole-trimethoprim 400-80 mg 2 tablet (BACTRIM,SEPTRA) 2 tablet ORAL/FEEDING TUBE - predniSONE (DELTASONE) tab(s) 80 mg 80 mg ORAL/FEEDING TUBE DAILY gabapentin 100 mg cap(s) (NEURONTIN) 100 mg ORAL q 12 H hydrocortisone sodium succinate (PF) 100 mg injection (Solu- CORTEF) 100 mg INTRAVENOUS q 4 H PRN HYDROmorphone WAITER/WAITRESS CABIN CLASS 0.5 mg/mL in NaCl 0.9% 100 mL INTRAVENOUS CONTINUOUS diphenhydrAMINE 50 mg injection (BENADRYL) 50 mg INTRAVENOUS q 4 H PRN NaCl 0.9% iv infusion 5-30 mL/hr INTRAVENOUS CONTINUOUS prochlorperazine 5 mg injection (COMPAZINE) 5 mg INTRAVENOUS q 6 H PRN 0.9% NaCl 2-10 mL 2-10 mL INTRAVENOUS PRN sodium citrate 4% 3-6 mL catheter lock 3-6 mL INTRALUMINAL PRN phosphorus 500 mg tab(s) (K PHOS NEUTRAL) 500 mg ORAL/FEEDING TUBE PRN sodium phosphate 15 mmol in D5W 250 mL 15 mmol INTRAVENOUS PRN sodium phosphate 30 mmol in D5W 250 mL 30 mmol INTRAVENOUS PRN sodium phosphate 45 mmol in D5W 250 mL 45 mmol INTRAVENOUS PRN 0.9% NaCl 3-5 mL 3-5 mL INTRAVENOUS q 12 H insulin regular human injection (short acting) (NovoLIN R,HumuLIN R) SUBCUTANEOUS q 6 H insulin regular 250 units in NaCl 0.9% 250 mL iv infusion - ICU NOMOGRAM 0.5-30 Units/hr INTRAVENOUS CONTINUOUS insulin regular human iv bolus 2-10 Units 2-10 Units INTRAVENOUS PRN dextrose 50% in water 25-50 mL syringe 12.5-25 g INTRAVENOUS PRN dextrose 40 % 15 g 15 g ORAL PRN glucagon 1 mg injection (GLUCAGEN) 1 mg SUBCUTANEOUS PRN acetaminophen 650 mg tab(s) (TYLENOL) 650 mg ORAL/FEEDING TUBE q 6 H PRN acetaminophen 650 mg suppository (TYLENOL) 650 mg RECTAL q 6 H PRN ? PHYSICAL EXAMINATION: General: Alert, NAD.On Nasal canula 02. HEENT: Grossly PERRLA, EOMI, anicteric Heart/CV: Grossly RRR Lungs/Resp/Chest: Normal chest wall movement. Abd: Grossly ND, no HSM, no other masses Extremities/Skin: No rashes appreciated DATA: Labs: Component Latest Ref Rng AND Units 10/29/2017 10/29/2017 10/29/2017 10/29/2017 10/30/2017 6:24 AM 11:50 AM 6:52 PM 11:35 PM WBC 3.70 - 11.00 k/uL 13.38 (H) 13.78 (H) 16.64 (H) 17.31 (H) 17.89 (H) RBC 3.90 - 5.20 m/uL 2.28 (L) 2.21 (L) 2.44 (L) 2.51 (L) 2.36 (L) Hemoglobin 11.5 - 15.5 g/dL 6.9 (L) 6.7 (L) 7.3 (L) 7.6 (L) 7.2 (L) Hematocrit 36.0 - 46.0 % 20.3 (L) 20.8 (L) 22.4 (L) 23.0 (L) 22.5 (L) MCV 80.0 - 100.0 fL 89.0 94.1 91.8 91.6 95.3 MCH 26.0 - 34.0 pG 30.3 30.3 29.9 30.3 30.5 MCHC 30.5 - 36.0 g/dL 34.0 32.2 32.6 33.0 32.0 RDW-CV 11.5 - 15.0 % 18.2 (H) 18.7 (H) 19.1 (H) 20.2 (H) 22.8 (H) Platelet Count 150 - 400 k/uL 15 (L) 16 (L) 17 (L) 18 (L) 15 (L) Absolute nRBC <0.01 k/uL 1.14 (H) 1.18 (H) 1.36 (H) 1.72 (H) 2.84 (H) Component Fondaparinux Latest Ref Rng AND Units 0.00 mg/L 10/16/2017 1.07 (H) 10/18/2017 1.69 (H) 10/20/2017 2.28 (H) 10/26/2017 0.94 (H) 10/27/2017 0.67 (H) ASSESSMENT/PLAN: 27 y/o female?with PMHx of Triple-positive Anti-phospholipid Syndrome diagnosed in 2013?(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 Recent admission 10/13/17-10/23/17 for hemoptysis and SOB, requiring intubation, was in MICU for management of DAH. Admitted to MICU again for extensive left retroperitoneal hemorrhage s/p IR guided intervention (initially on 10/23 at [facility] and 10/26 here at [facility]. ? # Antiphospholipid antibody syndrome Extensive left retroperitoneal hemorrhage likely secondary to anticoagulant. Its an unfortunate case, she needs an anticoagulation for APS but bleeding episodes prohibit it. Going to transition from CVVHD to IHD Platelets are getting worse (15K today). - Discussed case with Dr. Claudio regarding apheresis, we will hold off for today given concern for bleeding. Will evaluate tomorrow for plasma exchange. - Hold off on any anticoagulation for now. - continue with Prednisone 80mg PO - continue with cytoxan at 150mg - Please Transfuse for Hgb >7 and Plt > 30. ? Hematology team will follow. Pt discussed with Dr. Keenan ? Juan Christopher MD Fellow, Hematology and Medical Oncology Pager: [phone] STAFF ADDENDUM: I have reviewed the history, physical obtained and documented by the Fellow and I personally participated in all of the fernandes components. I have discussed the case and management of the patient's care with the Fellow. The following comments revise or confirm relevant fernandes components of the Fellow. She is more uncomfortable today--continued pain in the low back and flanks from the RP bleed and constipation. Now also has pneumonia. Transfused 1 u PRBC yesterday. Her platelet count continues below 20,000. In light of her presentation, agree with further platelet transfusions. Held plasma exchange for today because of clinical instability--readdress [place] [phone] CONSULT PROG Observed: 10/30/2017 Status: COMPLETED Source: [place] 7:48 AM [facility] REPOSITORY O ID: [id number] Author: Vini Toledo MD Service: Nephrology Author Type: Physician Type: Consult Progress Note Filed: 10/30/2017 1:35 PM Note Text: CONSULT PROGRESS NOTE NEPHROLOGY SERVICE Subjective INTERVAL HISTORY: On CVVHD 3K bath , Qd 18ml/kg/hr , UF 350ml/hr with good clearance and stable electrolytes -no clotting episodes in last 24 hrs UOP - 165 ml in last 24 hrs . net neg 7.6 L in last 24 hrs Saturating at 96% on 5L BP stable without pressors. MEDICATIONS: Current hospital medications: cefTRIAXone 2 g in D5W 100 mL MB+ (ROCEPHIN) 2 g INTRAVENOUS q 24 H docusate sodium 100 mg cap(s) (COLACE) 100 mg ORAL BID hydrALAZINE 10 mg injection (APRESOLINE) 10 mg INTRAVENOUS q 2 H PRN cyclophosphamide 150 mg cap(s) (CYTOXAN) 150 mg ORAL DAILY amLODIPine 10 mg tab(s) (NORVASC) 10 mg ORAL/FEEDING TUBE DAILY senna 8.6 mg tab(s) (SENOKOT) 8.6 mg ORAL/FEEDING TUBE BID pantoprazole DR 40 mg tab(s) (PROTONIX) 40 mg ORAL DAILY (6 AM) ondansetron 8 mg tab(s) (ZOFRAN) 8 mg ORAL q 8 H PRN diphenhydrAMINE 50 mg (BENADRYL) 50 mg ORAL/FEEDING TUBE q 6 H PRN sulfamethoxazole-trimethoprim 400-80 mg 2 tablet (BACTRIM,SEPTRA) 2 tablet ORAL/FEEDING TUBE -WE- predniSONE (DELTASONE) tab(s) 80 mg 80 mg ORAL/FEEDING TUBE DAILY gabapentin 100 mg cap(s) (NEURONTIN) 100 mg ORAL q 12 H hydrocortisone sodium succinate (PF) 100 mg injection (Solu- CORTEF) 100 mg INTRAVENOUS q 4 H PRN HYDROmorphone WAITER/WAITRESS CABIN CLASS 0.5 mg/mL in NaCl 0.9% 100 mL INTRAVENOUS CONTINUOUS diphenhydrAMINE 50 mg injection (BENADRYL) 50 mg INTRAVENOUS q 4 H PRN NaCl 0.9% iv infusion 5-30 mL/hr INTRAVENOUS CONTINUOUS prochlorperazine 5 mg injection (COMPAZINE) 5 mg INTRAVENOUS q 6 H PRN 0.9% NaCl 2-10 mL 2-10 mL INTRAVENOUS PRN sodium citrate 4% 3-6 mL catheter lock 3-6 mL INTRALUMINAL PRN phosphorus 500 mg tab(s) (K PHOS NEUTRAL) 500 mg ORAL/FEEDING TUBE PRN sodium phosphate 15 mmol in D5W 250 mL 15 mmol INTRAVENOUS PRN sodium phosphate 30 mmol in D5W 250 mL 30 mmol INTRAVENOUS PRN sodium phosphate 45 mmol in D5W 250 mL 45 mmol INTRAVENOUS PRN 0.9% NaCl 3-5 mL 3-5 mL INTRAVENOUS q 12 H insulin regular human injection (short acting) (NovoLIN R,HumuLIN R) SUBCUTANEOUS q 6 H insulin regular 250 units in NaCl 0.9% 250 mL iv infusion - ICU NOMOGRAM 0.5-30 Units/hr INTRAVENOUS CONTINUOUS insulin regular human iv bolus 2-10 Units 2-10 Units INTRAVENOUS PRN dextrose 50% in water 25-50 mL syringe 12.5-25 g INTRAVENOUS PRN dextrose 40 % 15 g 15 g ORAL PRN glucagon 1 mg injection (GLUCAGEN) 1 mg SUBCUTANEOUS PRN acetaminophen 650 mg tab(s) (TYLENOL) 650 mg ORAL/FEEDING TUBE q 6 H PRN acetaminophen 650 mg suppository (TYLENOL) 650 mg RECTAL q 6 H PRN Objective PHYSICAL EXAM: BP 147/76 Pulse 87 Temp 36.3 ?C (97.3 ?F) (Oral) Resp 27 Ht 160 cm (5' 3) Wt 107.6 kg (237 lb 3.4 oz) SpO2 96% BMI 42.02 kg/m2 Intake/Output Summary (Last 24 hours) at 10/30/17 0756 Last data filed at 10/30/17 0600 Gross per 24 hour Intake 705 ml Output 7989 ml Net -7284 ml Constitutional: No acute distress and Responsive Neck: Trachea midline No jugular venous distension Cardiovascular: Regular rate and ryhthm, normal S1 and S2, no murmurs, rubs, or gallops +3 edema (LE wrapped) Respiratory: Normal respiratory effort. Abdomen: Soft, non-tender, non-distended. Normal bowel sounds. No hepatosplenomegaly. Psychiatric: Alert and oriented x self, place, time, and setting Normal mood/affect Vascular Access: Hemodialysis catheter location: Left Tunneled internal jugular. Exit site demonstrates: normal findings DATA: Diagnostic tests reviewed for today's visit: Most recent labs and imaging results. Recent Labs 10/29/17 2335 10/28/17 2352 10/28/17 0401 10/27/17 1623 10/27/17 0100 10/26/17 0020 NA 132* 133* 131* -- 127* -- 125* K 4.4 4.6 4.9 -- 5.4* -- 5.4* CHLOR 95* 93* 91* -- 87* -- 83* CO2 25 24 28 -- 23 -- 20* BUN 25* 26* 33* -- 58* -- 63* CREAT 1.25* 1.31* 1.67* -- 2.56* -- 2.84* GLUC 115* 91 92 -- 118* -- 105* ANION 12 16 12 -- 17 -- 22* CA 9.3 8.7 8.6 -- 7.6* -- 8.0* P 2.8 3.4 4.3 5.4* 7.1* < > 8.4* MG 2.2 1.9 2.0 2.1 2.1 < > -- < > = values in this interval not displayed. Recent Labs 10/29/17 2335 10/29/17 1852 10/29/17 1150 WBC 17.31* 16.64* 13.78* HB 7.6* 7.3* 6.7* HCT 23.0* 22.4* 20.8* PLT 18* 17* 16* Recent Labs 10/26/17 0020 INR 1.0 APTT 26.8 Recent Labs 10/24/17 0500 10/15/17 1223 10/13/17 1846 COLOR Straw* Yellow Red* CLARITY Hazy* Cloudy* Cloudy* UGLUC 150* Negative Negative UBILI Negative Negative 1+* UKET Negative Negative Negative SPGR 1.009 1.019 >1.030* UHB Large* 1+* 3+* UPH 9.0* 5.0 6.0 UPROT 100* 30* >=300* NITRITES Negative Negative Positive* LEUKEST Negative 1+* 2+* UWBC Negative 0-5 6-10* URBC Many* 3-5* >25* Recent Labs 10/26/17 0229 LACT 1.5 Recent Labs 10/29/17 2335 10/20/17 0415 06/09/17 1024 ALLA -- -- 156.0 -- 363.9* TRANSFERSAT -- -- 9* -- 12* B12 -- -- -- -- 646 HB 7.6* < > 8.9* < > -- < > = values in this interval not displayed. Recent Labs 10/29/17 2335 10/26/17 0020 CA 9.3 < > 8.0* P 2.8 < > 8.4* ALB -- -- 3.2* < > = values in this interval not displayed. No results for input(s): BUNRAT, BUNPR, BUNPO in the last 168 hours. No results for input(s): HEPSABQ in the last 1440 hours. 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 Transferred from OSH where she presented with CAPRICE in the setting of retroperioneal hemorrhage with mass effect on L kidney s/p embolization on 10/23 .Nephrology consulted for CAPRICE 1. 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 Serological work up : low c3 and c4 Urine studies: 100 protein , many RBC Remains oliguric Hemodynamically stable . Will discontinue CVVHD today Associated problems -Electrolytes: Hyponatremia - Volume status: hypervolemic -.Acid-base: within normal limits - Anemia -HTN - Page kidney Active diagnoses Retroperitoneal hematoma Acute blood loss anemia HTN APLA syndrome Moraxella Pneumonia PLAN -Discontinue CVVHD tonight at 10pm -transition to IHD tomorrow - Strict I/O's - Daily weights - Renal diet - Dose medications for eGFR <10 mL/min once she is off CVVHD Consent for PAINT COATING MACHINE OPERATOR: PAINT COATING MACHINE OPERATOR initiation date: 10/26/17 Consent obtained and in EMR. Will discuss with staff SIGNATURE: Laya Peters MD PATIENT NAME: Paloma Cannon DATE: October 30, 2017 TIME: 8:12 AM PAGER: [phone] TEACHING PHYSICIAN NOTE OF PERSONAL INVOLVEMENT IN CARE I have reviewed the Progress Note obtained and documented by Dr. Peters and I personally participated in the fernandes components. I have discussed the case and management of the patient's care and I agree with the formulated assessment and plan. In addition to above note: 27 yoF w h/o hypertension, chronic systolic heart failure w EF 45%, anti-phospholipid antibody Sd c/b IVC thrombosis s/p b/l iliac stents and endograft at IVC bifurcation on AC and PLEX, diffuse alveloar hemorrhage on CYC admitted with CAPRICE, found to have RP hematoma causing mass effect on left kidney s/p embolization. #. Acute renal failure - Etiology: multifactorial d/t ATN (blood loss anemia), FABY, mass effect on kidney - On PAINT COATING MACHINE OPERATOR since 10/26 #. Stage III CKD - Proteinuric (< 1g) w baseline SCr ~ 1.2-1.5 - Etiology: renal vein thrombosis and prior ATN #. Active diagnoses: - Acute blood loss anemia w RP hematoma - Anti-phospholipid antibody syndrome - Diffuse alveloar hemorrhage - Heparin-induced thrombosis RECS: Seen and examined on dialysis - prescription reviewed and confirmed - will discontinue CRRT tonight and plan transition to IUF tomorrow Vini Toledo MD, FASN - Pager [phone] October 30, 2017 @ 1:35 PM CBC Collected: 10/29/2017 Status: F Source: [place] 11:35 PM [facility] REPOSITORY TYPE CODE TESTS RESULT OUT OF REFERENCE UNITS RANGE LAB WBC 3.70-11.00 k/uL WBC High 17.31 LAB RBC 3.90-5.20 m/uL Low RBC 2.51 LAB HGB 11.5-15.5 g/dL Low Hemoglobin 7.6 LAB HCT 36.0-46.0 % Low Hematocrit 23.0 LAB MCV 80.0-100.0 fL MCV 91.6 LAB MCH 26.0-34.0 pG MCH 30.3 LAB MCHC 30.5-36.0 g/dL MCHC 33.0 LAB RDWCV 11.5-15.0 % RDW-CV High 20.2 LAB PLTCT 150-400 k/uL Low Platelet Count 18 Result Comment: Result checked and verified No clot detected. No call per procedure. G60 10/30/17 0010 [facility] MPV 9.0-12.7 fL MPV <<DO NOT REPORT>> LAB ABSNUC <0.01 k/uL 1.72 High Absolute nRBC Performed By: #### CBC, BMP, MG1, PHOS #### [facility] [address] [place] [id number] BASIC METABOLIC PANL Collected: 10/29/2017 Status: F Source: [place] 11:35 PM [facility] REPOSITORY TYPE CODE TESTS RESULT OUT OF REFERENCE UNITS RANGE LAB GLU 74-99 mg/dL High Glucose 115 Result Comment: The [place] [employer] (ADA) provides guidance for cutoff values for fasting glucose and random glucose. The ADA defines fasting as no caloric intake for at least 8 hours. Fas ting plasma glucose results between 100 to 125 mg/dL indicate increased risk for diabetes (prediabetes). Fasting plasma glucose results greater than or equal to 126 mg/dL meet the criteria for diagnosis of diabetes. In the absence of unequivocal hyperglycemia, results should be confirmed by repeat testing. In a patient with classic symptoms of hyperglycemia or hyperglycemic crisis, random plasma glucose results greater than or equal to 200 mg/dL meet the criteria for diagnosis of diabetes. Reference: Standards of Medical Care in Diabetes 2016, [place] [employer]. Diabetes Care. 2016.39(Suppl 1). LAB BUN 7-21 mg/dL BUN High 25 LAB CRET 0.58-0.96 mg/dL Creatinine High 1.25 LAB NA 136-144 mmol/L Low Sodium 132 LAB K 3.7-5.1 mmol/L Potassium 4.4 LAB CL 97-105 mmol/L Low Chloride 95 LAB CO2 22-30 mmol/L CO2 25 LAB AGAP 9-18 mmol/L Anion Gap 12 LAB CA 8.5-10.2 mg/dL Calcium, Total 9.3 LAB GFRAA eGFR- Amer. >60 LAB GFRNAA . eGFR-All Other Races 51 Result Comment: eGFR (Estimated GFR) Units of measure: mL/min/1.73 meters squared eGFR is derived from the reexpressed MDRD Study equation using the following parameters: serum creatinine, age, gender and race. The creatinine assay has been calibrated to be traceable to IDMS. An eGFR <60 mL/min/1.73m2 for >3 months is consistent with chronic kidney disease. Refer to KDOQI guidelines for clinical interpretation. In patients with unstable renal function, e.g. those with acute kidney injury, the eGFR may not accurately reflect actual GFR. Performed By: #### CBC, BMP, MG1, PHOS #### [facility] [address] [place], [place] [address] MAGNESIUM Collected: 10/29/2017 Status: F Source: [place] 11:35 PM [facility] REPOSITORY TYPE CODE TESTS RESULT OUT OF REFERENCE UNITS RANGE LAB MG 1.7-2.3 mg/dL Magnesium 2.2 Performed By: #### CBC, BMP, MG1, PHOS #### [facility] [address] [place], [place] [address] PHOSPHORUS Collected: 10/29/2017 Status: F Source: [place] 11:35 PM [facility] REPOSITORY TYPE CODE TESTS RESULT OUT OF REFERENCE UNITS RANGE LAB PHOS 2.7-4.8 mg/dL Phosphorus 2.8 Performed By: #### CBC, BMP, MG1, PHOS #### [facility] [address] [place], [place] [address] CBC Collected: 10/29/2017 Status: F Source: [place] 6:52 PM [facility] REPOSITORY TYPE CODE TESTS RESULT OUT OF REFERENCE UNITS RANGE LAB WBC 3.70-11.00 k/uL WBC High 16.64 LAB RBC 3.90-5.20 m/uL Low RBC 2.44 LAB HGB 11.5-15.5 g/dL Low Hemoglobin 7.3 LAB HCT 36.0-46.0 % Low Hematocrit 22.4 LAB MCV 80.0-100.0 fL MCV 91.8 LAB MCH 26.0-34.0 pG MCH 29.9 LAB MCHC 30.5-36.0 g/dL MCHC 32.6 LAB RDWCV 11.5-15.0 % RDW-CV High 19.1 LAB PLTCT 150-400 k/uL Low Platelet Count 17 Result Comment: Result checked and verified No clot detected. No call per procedure. 10/29/17 19:35 [facility] MPV 9.0-12.7 fL MPV <<DO NOT REPORT>> LAB ABSNUC <0.01 k/uL 1.36 High Absolute nRBC Performed By: #### CBC #### [facility] [address], [place] [address] PROGRESS Observed: 10/29/2017 Status: COMPLETED Source: [place] 1:03 PM [facility] REPOSITORY HNO ID: [id number] Author: Christine Almaguer) Denise Service: Critical Care Author Type: Physician Satellite Tv Technician Installer Type: Progress Notes Filed: 10/29/2017 1:41 PM Note Text: SERVICE DATE: 10/29/2017 SERVICE TIME: 1:03 PM MICU PROGRESS NOTE Admission Date: 10/25/2017 Hospital Day # 4 SUBJECTIVE Interval HPI: Still having pain despite PO oxycodone and WAITER/WAITRESS CABIN CLASS bolus of dilaudid OBJECTIVE Vital Signs (last filed) Range in last 24h Temp: 37.2 ?C (99 ?F) (10/29/17 0800) Temp Min: 36.2 ?C (97.2 ?F) Max: 37.2 ?C (99 ?F) Pulse: (!) 124 (10/29/17 0830) Pulse Min: 78 Max: 124 Resp: 18 (10/29/17 0830) Resp Min: 12 Max: 50 BP: 129/64 (10/29/17829) BP Min: 129/64 Max: 211/84 MAP Non Invasive (Mean Arterial Pressure): 91 (10/29/17829) MAP Non Invasive (Mean Arterial Pressure) Min: 90 Max: 121 No Data Recorded SpO2: 96 % (10/29/17829) SpO2 Min: 86 % Max: 100 % Pain Score: 6/10 (10/29/17 06) Fluid Balance: Intake/Output Summary (Last 24 hours) at 10/29/17 0659 Last data filed at 10/29/17 06 Gross per 24 hour Intake 972 ml Output 6293 ml Net -5321 ml Last Weight: 115.6 kg (254 lb 13.6 oz) (10/29/17 0600) Admit Weight: 112.2 kg (247 lb 5.7 oz) (10/25/17 2327) DIET RENAL Lines, Drains, and Airways Line Peripheral 10/23/17 1235 Right Antecubital 22 Gauge 5 days Central Line Single Lumen 10/25/17 2314 Tunneled Left Chest 3 days Dialysis / Apheresis Double Lumen 10/25/17 2314 Admission to Hospital Left Chest 3 days Drain Indwelling Urinary Catheter 10/23/17 0520 Assessment Zuniga 6 days Vent/Oxygen: Supplemental Oxygen: Yes. FiO2 5LNC No Data Recorded Physical Examination Performed Oral Mucosa: Moist mucous membranes Eyes: PERRLA Neck: Unremarkable; No adenopathy or JVD Cardiovascular: Regular rhythm Respiratory: Rhonchi bilat, diminished in b/l bases Abdomen: Soft, Distended and Positive bowel sounds, pitting edema Extremities: Edema- Yes, improved BLE Peripheral Pulses- Present all extremities Skin: Abnormalities- Yes, petechaie Breakdown- No Neurologic: Awake, oriented, Alert, Follows commands and Moving all extremities Infusion Medications HYDROmorphone WAITER/WAITRESS CABIN CLASS 0.5 mg/mL NaCl 0.9% Last Rate: 10 mL/hr (10/29/17 0000) insulin regular Diagnostic tests reviewed today: Most recent labs and imaging results. PATIENT CHECKLIST ? Are restraints necessary: No ? Deep vein thrombosis prophylaxis administered? No. Contraindicated. ? Stress ulcer prophylaxis? Yes ? Nasogastric tube? No ? Zuniga catheter necessary? Yes ? Is central line essential? No ? Plan discussed with assigned RN? Yes ? Family updated within last 24 hours? Yes CARE COORDINATION: Patient Summary: 27 year old female with a PMHx significant for: - Anti-phospholipid syndrome c/b DVT/PE requiring extensive percutaneous thrombectomy of her IVC and lower extremity veins followed by b/l iliac venous stents and endograft into her IVC, on long-term anti-coagulation (recently changed to fondaparinux from coumadin on 10/13 admission) and IVC, plasmapheresis q2 weeks, prednisone 5mg daily - DAH - on cyclophosphamide and prednisone, has had 6 episodes of respiratory decline since 2013, last admission for hemoptysis on 10/13/17, on 2 L at night and with exertion - HIT - CKD 3, 2/2 renal vein thrombosis and contrast-induced nephropathy - HFpEF - HTN - Peripheral neuropathy - post-thrombotic syndrome Transferred from [facility] for ongoing L RP bleeding. Major Interval Events: 10/26: Transferred from [facility]. Hgb down to 5.5. 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 Alicea PLAN: - Restart cyclophosphamide 150mg daily (ok per heme and Dr. Alicea) - Continue prednisone 80mg qd - CVVH HTN (hypertension) 10/08/2015 - Present Overview Mildly decreased systolic function, diastolic function indeterminate on 10/13/17 ECHO. 10/28: Run of SBP in 200s overnight (likely d/t pain), given hydralazine however still consistently in 170s-180s 10/29: Still hypertensive, required 4 doses of hydralazine overnight Current Assessment AND Plan PLAN: - Increased amlodipine to 10 mg daily - Hydralazine prn - cont pain regimen CAPRICE (acute kidney injury) (HCC) 10/08/2015 - Present Overview CAPRICE on CKD III, 2/2 contrast, now requiring dialysis First HD at [facility] on 10/25 with tunneled dialysis catheter placement CT Abdomen/pelvis from 10/26 showed occlusion of B/L renal veins, outflow not appreciated- could be attributing to CAPRICE and CKD Bladder pressure Current Assessment AND Plan Assessment: CAPRICE on CKDIII secondary to FABY, now on dialysis PLAN: - Nephrology following, increased UF to 350 - CVVHD - Monitor I/Os - sevelamer TID 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 - Present Current Assessment AND Plan PLAN: - Avoid heparin and heparin-like products Peripheral neuropathy 04/14/2016 - Present Current Assessment AND Plan PLAN: - Continue neurontin Anti-phospholipid antibody syndrome (HCC) 10/25/2017 - Present Current Assessment AND Plan PLAN: - Plasmapheresis q2 weeks (Heme will arrange for PLEX Monday 10/30) - Continue prednisone 80mg daily - Hold anticoagulation until resolution of retroperitoneal bleed - Hematology following, appreciate recs - Vascular med has signed off Retroperitoneal hematoma 10/26/2017 - Present Overview Retroperitoneal bleed: s/p multiple PRBC transfusions s/p IR emobolization of left L3 artery at [facility] on 10/23 IR embolization of left L2 and L3 arteries on 10/26 Current Assessment AND Plan Assessment: secondary to anticoagulation (Fondaparinux) PLAN: - Monitor CBC and transfuse for Hgb<7 - Premedicate for transfusions - Hold anticoagulation - WAITER/WAITRESS CABIN CLASS pump for RP associated pain (added basal rate), d/c oxycodone Right groin pain 10/27/2017 - Present Overview 10/27: C/o acute pain this morning, access site for embolization at [facility], no erythema or induration appreciated on exam, exquisitely TTP Groin study showed no signs of PSA, known AV fistula visualized with retrograde flow, vascular med aware- no further recs 10/28: pain less severe, no physical exam findings Current Assessment AND Plan PLAN: - Pedal pulse checks Q2 - Vascular med following, appreciate recs - No additional recs from vascular surgery - cont pain regimen Moraxella catarrhalis pneumonia (HCC) 10/29/2017 - Present Current Assessment AND Plan PLAN: - Ceftriaxone (10-26-*) - dose adjusted to 2g per nephrology recs Plan of care discussed with: Patient and ICU Team SIGNATURE: Christine Walker PA-C PATIENT NAME: Paloma Cannon DATE: October 29, 2017 TIME: 1:03 PM PAGER/CONTACT #: [phone] TYPE AND SCREEN Collected: 10/29/2017 Status: F Source: [place] 11:56 AM [facility] REPOSITORY TYPE CODE TESTS RESULT OUT OF REFERENCE UNITS RANGE LAB %ABR B ABO/RH(D) POSITIVE LAB % Antibody POS Screen Performed By: #### TSCR #### [facility] [address] [place], [place] [address] CBC Collected: 10/29/2017 Status: F Source: [place] 11:50 AM [facility] REPOSITORY TYPE CODE TESTS RESULT OUT OF REFERENCE UNITS RANGE LAB WBC 3.70-11.00 k/uL WBC High 13.78 LAB RBC 3.90-5.20 m/uL Low RBC 2.21 LAB HGB 11.5-15.5 g/dL Low Hemoglobin 6.7 LAB HCT 36.0-46.0 % Low Hematocrit 20.8 LAB MCV 80.0-100.0 fL MCV 94.1 LAB MCH 26.0-34.0 pG MCH 30.3 LAB MCHC 30.5-36.0 g/dL MCHC 32.2 LAB RDWCV 11.5-15.0 % RDW-CV High 18.7 LAB PLTCT 150-400 k/uL Low Platelet Count 16 Result Comment: Result checked and verified No clot detected. No call per procedure. 10/29/17 [facility] LAB MPV 9.0-12.7 fL MPV <<DO NOT REPORT>> LAB ABSNUC <0.01 k/uL 1.18 High Absolute nRBC Performed By: #### CBC #### [facility] [address] [place], [place] [address] PROGRESS Observed: 10/29/2017 Status: COMPLETED Source: [place] 11:11 AM [facility] REPOSITORY HNO ID: [id number] Author: Germán Lopez Service: Critical Care Author Type: Physician Type: Progress Notes Filed: 10/29/2017 11:18 AM Note Text: DR. FRED STONE, SR. HOSPITAL STAFF PHYSICIAN NOTE OF PERSONAL INVOLVEMENT IN CARE I have reviewed the progress note obtained and documented by the physician child nutrition assistant and I personally participated in the fernandes components. I have discussed the case and management of the patient's care. The following comments revise or confirm relevant fernandes components of the note. IMPRESSION:?This is a 27 yo F with above mentioned past medical history most notable for antiphospholipid syndrome with complications of multiple embolic events on chronic anticoagulation, cyclophosphamide and plasmapharesis who was recently admitted for DAH, acute respiratory failure requiring intubation and within a day of discharge presented with retroperitoneal bleed and acute kidney injury. She required embolization, however is still requiring transfusions, and dialysis for CAPRICE. OVERNIGHT EVENTS October 28, 2017 Improved creatinine on CVVHD fondaparinux level elevated October 29, 2017 Continues to require Hydralazine for HTN Amlodipine increased UF at 350 Continue on WAITER/WAITRESS CABIN CLASS oxycodone for pain Gabapentin for neuropathy On ceftriaxone, dose adjusted Started on cyclophosphamide Fundaparinox level continues to be elevated Dropping platelets discussed with hem Hem is planning to follow up today Received a unit of platelets based on hem recommendations. 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 History of HIT?? PLAN:? Vascular medicine and hematology consult to assist with further management of ?APLS Consult vascular surgery MICU ppx Continue Amlodipine 10 mg daily Continue Hydralazine 10 q2 hrs Continue cyclophosphamide Serial CBC, transfuse as needed IR follow up as needed, consider repeating angiogram- This patient has a high probability of sudden, clinically significant deterioration, which requires the highest level of physician preparedness to intervene urgently. I managed/supervised life or organ supporting interventions that required frequent physician assessment. I devoted my full attention to the direct care of this patient for the amount of time indicated below. Time I spent with family or surrogate(s) is included only if the patient was incapable of providing the necessary information or participating in medical decision making. Time devoted to teaching and to any procedures I billed separately is not included. Critical Care Documentation: The patient has the following organ/system impairment(s): Acute blood loss Time spent providing critical care services: 35 minutes. SIGNATURE: Germán Lopez MD [facility] PAGER:[phone] DATE of SERVICE: October 29, 2017 CONSULT PROG Observed: 10/29/2017 Status: COMPLETED Source: [place] 8:52 AM [facility] REPOSITORY [facility] ID: [id number] Author: Morteza Smart Service: Vascular Medicine Author Type: Physician Type: Consult Progress Note Filed: 10/29/2017 8:55 AM Note Text: VASCMED CONSULT PROGRESS NOTE SERVICE DATE: 10/29/2017 SERVICE TIME: 8:52 AM Subjective Follow Up Regarding: Anticoagulation INTERVAL HPI and PERTINENT ROS: No significant changes over night. Unable to anticoagulate her at this time. Current Facility-Administered Medications: hydrALAZINE 10 mg injection (APRESOLINE) 10 mg INTRAVENOUS q 2 H PRN cyclophosphamide 150 mg cap(s) (CYTOXAN) 150 mg ORAL DAILY oxyCODONE-acetaminophen 5-325 mg 2 tablet (PERCOCET) 2 tablet ORAL/FEEDING TUBE q 6 H amLODIPine 10 mg tab(s) (NORVASC) 10 mg ORAL/FEEDING TUBE DAILY cefTRIAXone 1 g in D5W 100 mL MB+ (ROCEPHIN) 1 g INTRAVENOUS q 24 H senna 8.6 mg tab(s) (SENOKOT) 8.6 mg ORAL/FEEDING TUBE BID pantoprazole DR 40 mg tab(s) (PROTONIX) 40 mg ORAL DAILY (6 AM) ondansetron 8 mg tab(s) (ZOFRAN) 8 mg ORAL q 8 H PRN diphenhydrAMINE 50 mg (BENADRYL) 50 mg ORAL/FEEDING TUBE q 6 H PRN sulfamethoxazole-trimethoprim 400-80 mg 2 tablet (BACTRIM,SEPTRA) 2 tablet ORAL/FEEDING TUBE - predniSONE (DELTASONE) tab(s) 80 mg 80 mg ORAL/FEEDING TUBE DAILY gabapentin 100 mg cap(s) (NEURONTIN) 100 mg ORAL q 12 H hydrocortisone sodium succinate (PF) 100 mg injection (Solu- CORTEF) 100 mg INTRAVENOUS q 4 H PRN HYDROmorphone WAITER/WAITRESS CABIN CLASS 0.5 mg/mL in NaCl 0.9% 100 mL INTRAVENOUS CONTINUOUS diphenhydrAMINE 50 mg injection (BENADRYL) 50 mg INTRAVENOUS q 4 H PRN NaCl 0.9% iv infusion 5-30 mL/hr INTRAVENOUS CONTINUOUS prochlorperazine 5 mg injection (COMPAZINE) 5 mg INTRAVENOUS q 6 H PRN 0.9% NaCl 2-10 mL 2-10 mL INTRAVENOUS PRN sodium citrate 4% 3-6 mL catheter lock 3-6 mL INTRALUMINAL PRN phosphorus 500 mg tab(s) (K PHOS NEUTRAL) 500 mg ORAL/FEEDING TUBE PRN Or sodium phosphate 15 mmol in D5W 250 mL 15 mmol INTRAVENOUS PRN Or sodium phosphate 30 mmol in D5W 250 mL 30 mmol INTRAVENOUS PRN Or sodium phosphate 45 mmol in D5W 250 mL 45 mmol INTRAVENOUS PRN 0.9% NaCl 3-5 mL 3-5 mL INTRAVENOUS q 12 H insulin regular human injection (short acting) (NovoLIN R,HumuLIN R) SUBCUTANEOUS q 6 H insulin regular 250 units in NaCl 0.9% 250 mL iv infusion - ICU NOMOGRAM 0.5-30 Units/hr INTRAVENOUS CONTINUOUS insulin regular human iv bolus 2-10 Units 2-10 Units INTRAVENOUS PRN dextrose 50% in water 25-50 mL syringe 12.5-25 g INTRAVENOUS PRN dextrose 40 % 15 g 15 g ORAL PRN glucagon 1 mg injection (GLUCAGEN) 1 mg SUBCUTANEOUS PRN acetaminophen 650 mg tab(s) (TYLENOL) 650 mg ORAL/FEEDING TUBE q 6 H PRN And acetaminophen 650 mg suppository (TYLENOL) 650 mg RECTAL q 6 H PRN Objective PHYSICAL EXAM: BP 129/64 Pulse (!) 124 Temp 37.2 ?C (99 ?F) (Oral) Resp 18 Ht 160 cm (5' 3) Wt 115.6 kg (254 lb 13.6 oz) SpO2 96% BMI 45.14 kg/m2 General: comfortable, no distress Neck: supple Cardiac: tachycardic Respiratory: rhonchi Abdominal/GI: distended Extremity: legs are swollen - tubigrip is on them DATA: Diagnostic tests reviewed for today's visit: Most recent labs and imaging results. H/H 7.4 and 21.8, platelets at 18,000. Impression/Recommendations Active Problems: Retroperitoneal hematoma POA: Unknown Assessment AND Plan: Patient with a retroperitoneal hematoma requiring multiple transfusions. Unable to anticoagulate her at this time and likely for several weeks. Please reconsult us if additional questions arise. We will sign off. Morteza Smart MD SIGNATURE: Morteza Smart MD PATIENT NAME: Paloma Cannon DATE: October 29, 2017 TIME: 8:52 AM PAGER/CONTACT #: [phone] . CONSULT PROG Observed: 10/29/2017 Status: COMPLETED Source: [place] 6:56 AM [facility] REPOSITORY HNO ID: [id number] Author: Jonatan Blas Service: Nephrology Author Type: Physician Type: Consult Progress Note Filed: 10/29/2017 11:29 AM Note Text: CONSULT PROGRESS NOTE NEPHROLOGY SERVICE Subjective INTERVAL HISTORY: - No acute events overnight - Patient remains on CRRT - Qd 2500, 3K, UF 350 mL/hr - No issues - Decreasing oxygen needs noted - This morning the patient states that she is feeling better and her skin doesn't feel so stretched - No further complaints MEDICATIONS: Current hospital medications: hydrALAZINE 10 mg injection (APRESOLINE) 10 mg INTRAVENOUS q 2 H PRN cyclophosphamide 150 mg cap(s) (CYTOXAN) 150 mg ORAL DAILY oxyCODONE-acetaminophen 5-325 mg 2 tablet (PERCOCET) 2 tablet ORAL/FEEDING TUBE q 6 H amLODIPine 10 mg tab(s) (NORVASC) 10 mg ORAL/FEEDING TUBE DAILY cefTRIAXone 1 g in D5W 100 mL MB+ (ROCEPHIN) 1 g INTRAVENOUS q 24 H senna 8.6 mg tab(s) (SENOKOT) 8.6 mg ORAL/FEEDING TUBE BID pantoprazole DR 40 mg tab(s) (PROTONIX) 40 mg ORAL DAILY (6 AM) ondansetron 8 mg tab(s) (ZOFRAN) 8 mg ORAL q 8 H PRN diphenhydrAMINE 50 mg (BENADRYL) 50 mg ORAL/FEEDING TUBE q 6 H PRN sulfamethoxazole-trimethoprim 400-80 mg 2 tablet (BACTRIM,SEPTRA) 2 tablet ORAL/FEEDING TUBE -WE- predniSONE (DELTASONE) tab(s) 80 mg 80 mg ORAL/FEEDING TUBE DAILY gabapentin 100 mg cap(s) (NEURONTIN) 100 mg ORAL q 12 H hydrocortisone sodium succinate (PF) 100 mg injection (Solu- CORTEF) 100 mg INTRAVENOUS q 4 H PRN HYDROmorphone WAITER/WAITRESS CABIN CLASS 0.5 mg/mL in NaCl 0.9% 100 mL INTRAVENOUS CONTINUOUS diphenhydrAMINE 50 mg injection (BENADRYL) 50 mg INTRAVENOUS q 4 H PRN NaCl 0.9% iv infusion 5-30 mL/hr INTRAVENOUS CONTINUOUS prochlorperazine 5 mg injection (COMPAZINE) 5 mg INTRAVENOUS q 6 H PRN 0.9% NaCl 2-10 mL 2-10 mL INTRAVENOUS PRN sodium citrate 4% 3-6 mL catheter lock 3-6 mL INTRALUMINAL PRN phosphorus 500 mg tab(s) (K PHOS NEUTRAL) 500 mg ORAL/FEEDING TUBE PRN sodium phosphate 15 mmol in D5W 250 mL 15 mmol INTRAVENOUS PRN sodium phosphate 30 mmol in D5W 250 mL 30 mmol INTRAVENOUS PRN sodium phosphate 45 mmol in D5W 250 mL 45 mmol INTRAVENOUS PRN 0.9% NaCl 3-5 mL 3-5 mL INTRAVENOUS q 12 H insulin regular human injection (short acting) (NovoLIN R,HumuLIN R) SUBCUTANEOUS q 6 H insulin regular 250 units in NaCl 0.9% 250 mL iv infusion - ICU NOMOGRAM 0.5-30 Units/hr INTRAVENOUS CONTINUOUS insulin regular human iv bolus 2-10 Units 2-10 Units INTRAVENOUS PRN dextrose 50% in water 25-50 mL syringe 12.5-25 g INTRAVENOUS PRN dextrose 40 % 15 g 15 g ORAL PRN glucagon 1 mg injection (GLUCAGEN) 1 mg SUBCUTANEOUS PRN acetaminophen 650 mg tab(s) (TYLENOL) 650 mg ORAL/FEEDING TUBE q 6 H PRN acetaminophen 650 mg suppository (TYLENOL) 650 mg RECTAL q 6 H PRN Objective PHYSICAL EXAM: BP 146/74 Pulse 98 Temp 36.4 ?C (97.5 ?F) Resp 28 Ht 160 cm (5' 3) Wt 115.6 kg (254 lb 13.6 oz) SpO2 92% BMI 45.14 kg/m2 Intake/Output Summary (Last 24 hours) at 10/29/17 0657 Last data filed at 10/29/17 0600 Gross per 24 hour Intake 972 ml Output 6293 ml Net -5321 ml Constitutional: No acute distress and Responsive Neck: Trachea midline No mass palpable Cardiovascular: S1S2 RRR, no rubs or gallops, there is significant dependent and peripheral edema noted Respiratory: Normal respiratory effort, equal excursion bilaterally, decreased breath sounds in bilateral bases Abdomen: Distended, soft, abdominal wall edema noted. Bowel sounds hypoactive Psychiatric: Alert and oriented x self, place, time, and setting Normal mood/affect Vascular Access: Hemodialysis catheter location: Left Tunneled internal jugular. Exit site demonstrates: normal findings DATA: Diagnostic tests reviewed for today's visit: Recent Labs 10/28/17 2352 10/28/17 0401 10/27/17 1623 10/27/17 0100 10/26/17 2020 10/26/17 0020 10/25/17 0500 NA 133* 131* -- 127* -- 125* 125* K 4.6 4.9 -- 5.4* -- 5.4* 5.5* CHLOR 93* 91* -- 87* -- 83* 85* CO2 24 28 -- 23 -- 20* 25 BUN 26* 33* -- 58* -- 63* 75* CREAT 1.31* 1.67* -- 2.56* -- 2.84* 2.86* GLUC 91 92 -- 118* -- 105* 97 ANION 16 12 -- 17 -- 22* 15 CA 8.7 8.6 -- 7.6* -- 8.0* 7.8* P 3.4 4.3 5.4* 7.1* 8.5* 8.4* 8.6* MG 1.9 2.0 2.1 2.1 2.1 -- 2.1 Recent Labs 10/28/17 2352 10/28/17 1947 10/28/17 1310 WBC 16.09* 16.70* 17.65* HB 7.4* 7.4* 7.5* HCT 21.8* 21.9* 22.6* PLT 18* 18* 22* Recent Labs 10/26/17 0020 10/25/17 0500 10/23/17 0630 TBILI 1.1 0.8 0.4 ALT 95* 106* 9 AST 63* 73* 14 ALKPHOS 54 44 34* Assessment/Plan 27 year old female with medical history inclusive of CKD III secondary to renal vein thrombosis and FABY, anti-phospholipid antibody syndrome with history of DVT/PE/IVC thrombosis s/p bilateral iliac vein stents and endograft to IVC on fondaparinux on PLEX every other week, as well as history of DAH on cytoxan, heart failure and hypertension who was transferred from another facility where she initially presented with CAPRICE found to have retroperitoneal hemorrhage with mass effect on left kidney s/p embolization. Nephrology following for CAPRICE on CKD III. 1. Oligo-anuric CAPRICE on CKD III - Baseline creatinine ~1.2-1.5 mg/dL - Etiology of CAPRICE - likely multifactorial in the setting of acute blood loss anemia, mass effect on kidney as well as possible concern for a vasculitic process - Access: [facility] TDC - PAINT COATING MACHINE OPERATOR initiated on 10/26/17 - No current signs of renal recovery Associated Problems Electrolytes - Mild hyponatremia - improving with increased UF - Otherwise, within normal limits Acid-base - within normal limits Volume status - overloaded Hypertension - not well controlled Other Problems Acute blood loss anemia Anti-phospholipid antibody syndrome DAH HIT HFpEF Post-thrombotic syndrome Peripheral neuropathy PLAN - Continue CRRT with current UF - Check magnesium and phosphorus daily and replete as needed - Dose medications for eGFR 20 - 30 mL/min -Change Ceftriaxone 2 g IV Q12-24 hours - Non renal feeds while on CRRT - Daily weights - Strict I/O's Consent for PAINT COATING MACHINE OPERATOR: PAINT COATING MACHINE OPERATOR initiation date: 10/26/17 Consent obtained and in EMR. Dr. Laya Peters (pager [phone]) will assume care on MondayOctober 30 SIGNATURE: Day Vásquez MD PATIENT NAME: Paloma Cannon DATE: October 29, 2017 TIME: 6:56 AM PAGER: [phone] [facility] [place] DR. FRED STONE, SR. HOSPITAL STAFF PHYSICIAN NOTE OF PERSONAL INVOLVEMENT IN CARE I have reviewed the progress note obtained and documented by Dr. Vásquez and I personally participated in the fernandes components. I have discussed the case and management of the patient's care. I have revised and amended the note to reflect my examination, assessment and plan. ? I saw the patient on CVVHD. Jonatan Blas MD Staff Nephrology and Hypertension [facility] Beeper Number: [id number] Date of Service: 10/29/2017 Time of Service: 9:21 AM CBC Collected: 10/29/2017 Status: F Source: [place] 6:24 AM [facility] [place] REPOSITORY TYPE CODE TESTS RESULT OUT OF REFERENCE UNITS RANGE LAB WBC 3.70-11.00 k/uL WBC High 13.38 LAB RBC 3.90-5.20 m/uL Low RBC 2.28 LAB HGB 11.5-15.5 g/dL Low Hemoglobin 6.9 LAB HCT 36.0-46.0 % Low Hematocrit 20.3 LAB MCV 80.0-100.0 fL MCV 89.0 LAB MCH 26.0-34.0 pG MCH 30.3 LAB MCHC 30.5-36.0 g/dL MCHC 34.0 LAB RDWCV 11.5-15.0 % RDW-CV High 18.2 LAB PLTCT 150-400 k/uL Low Platelet Count 15 Result Comment: Result checked and verified No clot detected. No call per procedure. 10/29/17 0804 Raji LAB MPV 9.0-12.7 fL MPV <<DO NOT REPORT>> LAB ABSNUC <0.01 k/uL 1.14 High Absolute nRBC Performed By: #### CBC #### [facility] [address] [address] NURSING PROG Observed: 10/29/2017 Status: COMPLETED Source: [place] 5:20 AM [facility] REPOSITORY HNO ID: [id number] Author: Jose (Rn) JEFF Woods Service: Nursing Author Type: Registered Nurse Type: Nursing Progress Note Filed: 10/29/2017 5:22 AM Note Text: Nursing Progress Note Patient Name: Paloma Cannon Patient Location: [place] [id number]- Daily Note: Pt was ordered 1 unit of platelet, staffed with [facility] team and was told not to give the platelet due to vascular medicine wants pt to avoid platelets transfusion as much as possible. Platelet was returned to the blood bank This note was completed by: Jose Woods RN BASIC METABOLIC PANL Collected: 10/28/2017 Status: F Source: [place] 11:52 PM [facility] REPOSITORY TYPE CODE TESTS RESULT OUT OF REFERENCE UNITS RANGE LAB GLU 74-99 mg/dL Glucose 91 Result Comment: The [place] [employer] (ADA) provides guidance for cutoff values for fasting glucose and random glucose. The ADA defines fasting as no caloric intake for at least 8 hours. Fas ting plasma glucose results between 100 to 125 mg/dL indicate increased risk for diabetes (prediabetes). Fasting plasma glucose results greater than or equal to 126 mg/dL meet the criteria for diagnosis of diabetes. In the absence of unequivocal hyperglycemia, results should be confirmed by repeat testing. In a patient with classic symptoms of hyperglycemia or hyperglycemic crisis, random plasma glucose results greater than or equal to 200 mg/dL meet the criteria for diagnosis of diabetes. Reference: Standards of Medical Care in Diabetes 2016, [place] [employer]. Diabetes Care. 2016.39(Suppl 1). LAB BUN 7-21 mg/dL BUN High 26 LAB CRET 0.58-0.96 mg/dL Creatinine High 1.31 LAB NA 136-144 mmol/L Low Sodium 133 LAB K 3.7-5.1 mmol/L Potassium 4.6 LAB CL 97-105 mmol/L Low Chloride 93 LAB CO2 22-30 mmol/L CO2 24 LAB AGAP 9-18 mmol/L Anion Gap 16 LAB CA 8.5-10.2 mg/dL Calcium, Total 8.7 LAB GFRAA eGFR- Amer. 59 LAB GFRNAA . eGFR-All Other Races 48 Result Comment: eGFR (Estimated GFR) Units of measure: mL/min/1.73 meters squared eGFR is derived from the reexpressed MDRD Study equation using the following parameters: serum creatinine, age, gender and race. The creatinine assay has been calibrated to be traceable to IDMS. An eGFR <60 mL/min/1.73m2 for >3 months is consistent with chronic kidney disease. Refer to KDOQI guidelines for clinical interpretation. In patients with unstable renal function, e.g. those with acute kidney injury, the eGFR may not accurately reflect actual GFR. Performed By: #### BMP, MG1, PHOS, CBC #### [facility] [address] [id number] MAGNESIUM Collected: 10/28/2017 Status: F Source: [place] 11:52 PM [facility] REPOSITORY TYPE CODE TESTS RESULT OUT OF REFERENCE UNITS RANGE LAB MG 1.7-2.3 mg/dL Magnesium 1.9 Performed By: #### BMP, MG1, PHOS, CBC #### [facility] [address] [place], [place] [address] PHOSPHORUS Collected: 10/28/2017 Status: F Source: [place] 11:52 PM [facility] REPOSITORY TYPE CODE TESTS RESULT OUT OF REFERENCE UNITS RANGE LAB PHOS 2.7-4.8 mg/dL Phosphorus 3.4 Performed By: #### BMP, MG1, PHOS, CBC #### [facility] [address] [place], [place] [address] CBC Collected: 10/28/2017 Status: F Source: [place] 11:52 PM [facility] REPOSITORY TYPE CODE TESTS RESULT OUT OF REFERENCE UNITS RANGE LAB WBC 3.70-11.00 k/uL WBC High 16.09 LAB RBC 3.90-5.20 m/uL Low RBC 2.44 LAB HGB 11.5-15.5 g/dL Low Hemoglobin 7.4 LAB HCT 36.0-46.0 % Low Hematocrit 21.8 LAB MCV 80.0-100.0 fL MCV 89.3 LAB MCH 26.0-34.0 pG MCH 30.3 LAB MCHC 30.5-36.0 g/dL MCHC 33.9 LAB RDWCV 11.5-15.0 % RDW-CV High 17.5 LAB PLTCT 150-400 k/uL Low Platelet Count 18 Result Comment: Result checked and verified No clot detected. No call per procedure. 10/29/17 Karen Munoz LAB MPV 9.0-12.7 fL MPV <<DO NOT REPORT>> LAB ABSNUC <0.01 k/uL 1.55 High Absolute nRBC Performed By: #### BMP, MG1, PHOS, CBC #### [facility] [address] [place], [place] [address] CBC Collected: 10/28/2017 Status: F Source: [place] 7:47 PM [facility] REPOSITORY TYPE CODE TESTS RESULT OUT OF REFERENCE UNITS RANGE LAB WBC 3.70-11.00 k/uL WBC High 16.70 LAB RBC 3.90-5.20 m/uL Low RBC 2.46 LAB HGB 11.5-15.5 g/dL Low Hemoglobin 7.4 LAB HCT 36.0-46.0 % Low Hematocrit 21.9 LAB MCV 80.0-100.0 fL MCV 89.0 LAB MCH 26.0-34.0 pG MCH 30.1 LAB MCHC 30.5-36.0 g/dL MCHC 33.8 LAB RDWCV 11.5-15.0 % RDW-CV High 16.6 LAB PLTCT 150-400 k/uL Low Platelet Count 18 Result Comment: Result checked and verified No clot detected. No call per procedure. 10/28/17 20:53 S.Kala LAB MPV 9.0-12.7 fL MPV <<DO NOT REPORT>> LAB ABSNUC <0.01 k/uL 1.38 High Absolute nRBC Performed By: #### CBC #### [facility] [address] [id number] PROGRESS Observed: 10/28/2017 Status: COMPLETED Source: [place] 1:58 PM [facility] REPOSITORY HNO ID: [id number] Author: Christine Almaguer) Denise Service: Critical Care Author Type: Physician Satellite Tv Technician Installer Type: Progress Notes Filed: 10/28/2017 2:00 PM Note Text: SERVICE DATE: 10/28/2017 SERVICE TIME: 1:58 PM MICU PROGRESS NOTE Admission Date: 10/25/2017 Hospital Day # 3 SUBJECTIVE Interval HPI: Pt states pain is better controlled today, resting comfortably in bed OBJECTIVE Vital Signs (last filed) Range in last 24h Temp: 36.9 ?C (98.4 ?F) (10/28/17699) Temp Min: 36.1 ?C (97 ?F) Max: 36.9 ?C (98.4 ?F) Pulse: 92 (10/28/17624) Pulse Min: 80 Max: 108 Resp: 25 (10/28/17624) Resp Min: 12 Max: 45 BP: 177/82 (10/28/17624) BP Min: 140/94 Max: 213/98 MAP Non Invasive (Mean Arterial Pressure): 118 (10/28/17624) MAP Non Invasive (Mean Arterial Pressure) Min: 107 Max: 141 No Data Recorded SpO2: 99 % (10/28/17624) SpO2 Min: 92 % Max: 100 % Pain Score: 9/10 (04/21/18 0700) Fluid Balance: Intake/Output Summary (Last 24 hours) at 10/28/17 0659 Last data filed at 10/28/17 0600 Gross per 24 hour Intake 2285 ml Output 2712 ml Net -427 ml Last Weight: 121.4 kg (267 lb 10.2 oz) (10/28/17 0600) Admit Weight: 112.2 kg (247 lb 5.7 oz) (10/25/17 2327) DIET RENAL Lines, Drains, and Airways Line Peripheral 10/23/17 1235 Right Antecubital 22 Gauge 4 days Central Line Single Lumen 10/25/17 2314 Tunneled Left Chest 2 days Dialysis / Apheresis Double Lumen 10/25/17 2314 Admission to Hospital Left Chest 2 days Drain Indwelling Urinary Catheter 10/23/17 0520 Assessment Zuniga 5 days Vent/Oxygen: Supplemental Oxygen: Yes. FiO2 5L NC No Data Recorded Physical Examination Performed Oral Mucosa: Moist mucous membranes Eyes: PERRLA Neck: Unremarkable; No adenopathy or JVD Cardiovascular: Regular rhythm Respiratory: Clear to auscultation, diminished in b/l bases Abdomen: Soft and Positive bowel sounds, 2+ pitting edema Extremities: Edema- Yes, 2+ pitting BLE, HEATHER wraps in place Peripheral Pulses- Present all extremities Skin: Abnormalities- Yes, multiple areas of petechaie Breakdown- No Neurologic: Awake, oriented, Alert, Follows commands and Moving all extremities Infusion Medications HYDROmorphone WAITER/WAITRESS CABIN CLASS 0.5 mg/mL NaCl 0.9% Last Rate: 30 mL/hr (10/28/17 0700) insulin regular Diagnostic tests reviewed today: Most recent labs and imaging results. PATIENT CHECKLIST ? Are restraints necessary: No ? Deep vein thrombosis prophylaxis administered? No. Contraindicated. ? Stress ulcer prophylaxis? Yes ? Nasogastric tube? No ? Zuniga catheter necessary? Yes ? Is central line essential? No ? Plan discussed with assigned RN? Yes ? Family updated within last 24 hours? Yes CARE COORDINATION: Patient Summary: 27 year old female with a PMHx significant for: - Anti-phospholipid syndrome c/b DVT/PE requiring extensive percutaneous thrombectomy of her IVC and lower extremity veins followed by b/l iliac venous stents and endograft into her IVC, on long-term anti-coagulation (recently changed to fondaparinux from coumadin on 10/13 admission) and IVC, plasmapheresis q2 weeks, prednisone 5mg daily - DAH - on cyclophosphamide and prednisone, has had 6 episodes of respiratory decline since 2013, last admission for hemoptysis on 10/13/17, on 2 L at night and with exertion - HIT - CKD 3, 2/2 renal vein thrombosis and contrast-induced nephropathy - HFpEF - HTN - Peripheral neuropathy - post-thrombotic syndrome Transferred from [place] for ongoing L RP bleeding. Major Interval Events: 10/26: Transferred from [place]. Hgb down to 5.5. 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 Alicea PLAN: - Restart cyclophosphamide 150mg daily (ok per heme and Dr. Alicea) - Continue prednisone 80mg qd - CVVH HTN (hypertension) 10/08/2015 - Present Overview Mildly decreased systolic function, diastolic function indeterminate on 10/13/17 ECHO. 10/28: Run of SBP in 200s overnight (likely d/t pain), given hydralazine however still consistently in 170s-180s Current Assessment AND Plan PLAN: - Restart home amlodipine 5 mg daily - Hydralazine prn - cont pain regimen CAPRICE (acute kidney injury) (HCC) 10/08/2015 - Present Overview CAPRICE on CKD III, 2/2 contrast, now requiring dialysis First HD at [facility] on 10/25 with tunneled dialysis catheter placement CT Abdomen/pelvis from 10/26 showed occlusion of B/L renal veins, outflow not appreciated- could be attributing to CAPRICE and CKD Current Assessment AND Plan Assessment: CAPRICE on CKDIII secondary to FABY, now on dialysis PLAN: - Nephrology following - CVVHD - Monitor I/Os - sevelamer TID 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 - Present Current Assessment AND Plan PLAN: - Avoid heparin and heparin-like products Peripheral neuropathy 04/14/2016 - Present Current Assessment AND Plan PLAN: - Continue neurontin Anti-phospholipid antibody syndrome (HCC) 10/25/2017 - Present Current Assessment AND Plan PLAN: - Plasmapheresis q2 weeks (Heme will arrange for PLEX Monday 10/30) - Continue prednisone 80mg daily - Hold anticoagulation until resolution of retroperitoneal bleed - Vascular med and hematology following, appreciate recs Retroperitoneal hematoma 10/26/2017 - Present Overview Retroperitoneal bleed: s/p 7 units PRBCs s/p IR emobolization of left L3 artery at [facility] on 10/23 IR embolization of left L2 and L3 arteries on 10/26 Current Assessment AND Plan Assessment: secondary to anticoagulation PLAN: - Monitor CBC and transfuse for Hgb<7 - Premedicate for transfusions - Hold anticoagulation - wean off WAITER/WAITRESS CABIN CLASS pump to PO oxycodone for L sided flank pain Right groin pain 10/27/2017 - Present Overview 10/27: C/o acute pain this morning, access site for embolization at [facility], no erythema or induration appreciated on exam, exquisitely TTP Groin study showed no signs of PSA, known AV fistula visualized with retrograde flow, vascular med aware- no further recs 10/28: pain less severe, no physical exam findings Current Assessment AND Plan PLAN: - Pedal pulse checks Q2 - Vascular med following, appreciate recs - No additional recs from vascular surgery - cont pain regimen Plan of care discussed with: Patient and ICU Team SIGNATURE: Christine Walker PA-C PATIENT NAME: Paloma Cannon DATE: October 28, 2017 TIME: 1:58 PM PAGER/CONTACT #: [phone] CBC Collected: 10/28/2017 Status: F Source: [place] 1:10 PM [facility] REPOSITORY TYPE CODE TESTS RESULT OUT OF REFERENCE UNITS RANGE LAB WBC 3.70-11.00 k/uL WBC High 17.65 LAB RBC 3.90-5.20 m/uL Low RBC 2.52 LAB HGB 11.5-15.5 g/dL Low Hemoglobin 7.5 LAB HCT 36.0-46.0 % Low Hematocrit 22.6 LAB MCV 80.0-100.0 fL MCV 89.7 LAB MCH 26.0-34.0 pG MCH 29.8 LAB MCHC 30.5-36.0 g/dL MCHC 33.2 LAB RDWCV 11.5-15.0 % RDW-CV High 16.2 LAB PLTCT 150-400 k/uL Low Platelet Count 22 Result Comment: Result checked and verified No clot detected. LAB MPV 9.0-12.7 fL MPV <<DO NOT REPORT>> LAB ABSNUC <0.01 k/uL 1.52 High Absolute nRBC Performed By: #### CBC #### [facility] [address] [place], [place] [address] CONSULT Observed: 10/28/2017 Status: COMPLETED Source: [place] 10:14 AM [facility] REPOSITORY HNO ID: [id number] Author: Lupillo Newman MD Service: Vascular Surgery Author Type: Resident Type: Consults Filed: 10/28/2017 11:19 AM Note Text: [facility] INITIAL CONSULT Service Date: 10/28/2017 Admit Date: 10/25/2017 Service Time: 10:14 AM LOS: 3 Requesting Provider: Dr. Sandra Felipe Vascular Physician: Ted Briones MD Subjective Chief Complaint: left groin pain HPI: Paloma Cannon is a 27 year old White female referred by Dr. Flores for an opinion regarding management of right groin pain. 27yoF with h/o HTN, CHF, CKD 3 2/2 renal vein 6 total episodes of diffuse alveolar hemorrhage (since 2013), HIT on fondaparinux started on 10/13, APLS c/b DVT/PE requiring extensive percutaneous thrombectomy of her IVC and lower extremity veins + b/l iliac vein stents and IVC endograft (Endoglix AFX, 2012), who receives plasmapheresis q2 weeks, who presented to [facility] and then [facility] on 10/23 with severe stabbing left-sided abdominal pain radiating to the left arm/leg and was found to have a large left RP bleed, after which she was transferred to [facility] - her Fondaparinux has been held since 10/23, and she received a lumbar artery embolization on 10/27. She has additionally reported rightgroin pain, for which she received a groin duplex demonstrating known b/l surgically-created AVFs (R SFA-->CFV). Her OSH leg DVT scan was technically limited but negative for DVT. Additional PMH includes postphlebitic syndrome, peripheral neuropathy. Meds include prednisone, cyclophosphamide. Location: right groin Quality: acute Severity: mild Duration: 2-3 days PAST MEDICAL HISTORY Diagnosis Date - (HFpEF) heart failure with preserved ejection fraction (HCC) 02/20/2016 HFpEF w last EF 50-55% On Torsemide, coreg, hydralazine and imdur at home No signs of acute exacerbation on admission Plan: -Continue home medications - Anasarca 11/29/2013 - Anemia 03/10/2015 Chronic microcytic anemia. 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 Thrombosis, and Diffuse Alveolar Hemorrhage. On Warfarin and PLEX (Twice Weekly)? Plan: -Warfarin 5mg qday-holding for planned EGD on 01/11 d/t supra therapeutic INR -Cont. PO Prednisone 10mg MWFS and 5mg TTS -Pantoprazole for GI PPx of Above -Apharesis was supposed to be yesterday, will contact plasmapheresis team on recommendations - Antiphospholipid syndrome (HCC) - Catastrophic Antiphospholipid antibody syndrome 11/09/2013 - Cholelithiasis 01/11/2017 Likely cause of recent pancreatitis. Plan: Per general surgery, no acute surgical intervention at this time. Will await results of EGD. If active gastritis, favor outpatient cholecystectomy. If no active gastritis on EGD, plan for cholecystectomy this admission. - CKD (chronic kidney disease) stage 3, GFR 30-59 ml/min 07/06/2016 Baseline SCr 1.5-1.7 Plan: -renally dose medications -avoid nephrotoxic agents - DVT (deep venous thrombosis) (HCC) - Elevated CA-125 11/30/2013 244 - Essential hypertension 10/08/2015 Stable on home medications Plan: -continue to monitor on home meds - 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 Bivalirudin to Warfarin bridging - HIT (heparin-induced thrombocytopenia) (HCC) - Nontoxic multinodular goiter - Obese - Obesity, Class III, BMI >= 40 (morbid obesity) E66.01 10/18/2016 - Peripheral neuropathy 04/14/2016 - Pulmonary HTN 04/03/2017 - Severe protein-calorie malnutrition (HCC) 12/29/2015 PAST SURGICAL HISTORY Procedure Laterality Date - PAST SURGICAL HISTORY OF 2012 IVC thrombectomy - PAST SURGICAL HISTORY OF 2012 b/l iliac v. 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 Disp: 0.8 mL Rfl: 0 Unknown at Unknown time diphenhydrAMINE (BENADRYL) 50 mg capsule Take 1 capsule by mouth every 6 hours as needed for Itching/Rash. Disp: Rfl: Unknown at Unknown time gabapentin (NEURONTIN) 100 mg capsule Take 1 capsule by mouth three times daily for 7 days. Disp: Rfl: Unknown at Unknown time predniSONE (DELTASONE) 20 mg tablet Take 4 tablets by mouth once daily for 8 days. Disp: 32 tablet Rfl: 0 Unknown at Unknown time ondansetron (ZOFRAN, HYDROCHLORIDE,) 8 mg tablet Take 8 mg by mouth every 8 hours as needed for Nausea/Vomiting. Disp: Rfl: Unknown at Unknown time pantoprazole DR (PROTONIX) 40 mg tablet Take 40 mg by mouth daily at bedtime. Disp: Rfl: Unknown at Unknown time sulfamethoxazole-trimethoprim (BACTRIM DS) 800-160 mg per tablet Take 1 tablet by mouth every Monday,Monday,Monday. Disp: 36 tablet Rfl: 3 Unknown at Unknown time fluticasone (FLONASE) 50 mcg/actuation nasal spray Use 1-2 Sprays in each nostril once daily as needed for Cold/Allergy Symptoms (starting in allergy season). Disp: Rfl: Unknown at Unknown time senna 8.6 mg tab Take 1 tablet by mouth twice daily as needed. Disp: 60 tablet Rfl: 0 Unknown at Unknown time Current hospital medications: amLODIPine 5 mg tab(s) (NORVASC) 5 mg ORAL/FEEDING TUBE DAILY hydrALAZINE 10 mg injection (APRESOLINE) 10 mg INTRAVENOUS q 2 H PRN cyclophosphamide 150 mg cap(s) (CYTOXAN) 150 mg ORAL DAILY cefTRIAXone 1 g in D5W 100 mL MB+ (ROCEPHIN) 1 g INTRAVENOUS q 24 H senna 8.6 mg tab(s) (SENOKOT) 8.6 mg ORAL/FEEDING TUBE BID pantoprazole DR 40 mg tab(s) (PROTONIX) 40 mg ORAL DAILY (6 AM) ondansetron 8 mg tab(s) (ZOFRAN) 8 mg ORAL q 8 H PRN diphenhydrAMINE 50 mg (BENADRYL) 50 mg ORAL/FEEDING TUBE q 6 H PRN sulfamethoxazole-trimethoprim 400-80 mg 2 tablet (BACTRIM,SEPTRA) 2 tablet ORAL/FEEDING TUBE - predniSONE (DELTASONE) tab(s) 80 mg 80 mg ORAL/FEEDING TUBE DAILY gabapentin 100 mg cap(s) (NEURONTIN) 100 mg ORAL q 12 H hydrocortisone sodium succinate (PF) 100 mg injection (Solu- CORTEF) 100 mg INTRAVENOUS q 4 H PRN HYDROmorphone WAITER/WAITRESS CABIN CLASS 0.5 mg/mL in NaCl 0.9% 100 mL INTRAVENOUS CONTINUOUS diphenhydrAMINE 50 mg injection (BENADRYL) 50 mg INTRAVENOUS q 4 H PRN NaCl 0.9% iv infusion 5-30 mL/hr INTRAVENOUS CONTINUOUS prochlorperazine 5 mg injection (COMPAZINE) 5 mg INTRAVENOUS q 6 H PRN 0.9% NaCl 2-10 mL 2-10 mL INTRAVENOUS PRN sodium citrate 4% 3-6 mL catheter lock 3-6 mL INTRALUMINAL PRN phosphorus 500 mg tab(s) (K PHOS NEUTRAL) 500 mg ORAL/FEEDING TUBE PRN sodium phosphate 15 mmol in D5W 250 mL 15 mmol INTRAVENOUS PRN sodium phosphate 30 mmol in D5W 250 mL 30 mmol INTRAVENOUS PRN sodium phosphate 45 mmol in D5W 250 mL 45 mmol INTRAVENOUS PRN 0.9% NaCl 3-5 mL 3-5 mL INTRAVENOUS q 12 H insulin regular human injection (short acting) (NovoLIN R,HumuLIN R) SUBCUTANEOUS q 6 H insulin regular 250 units in NaCl 0.9% 250 mL iv infusion - ICU NOMOGRAM 0.5-30 Units/hr INTRAVENOUS CONTINUOUS insulin regular human iv bolus 2-10 Units 2-10 Units INTRAVENOUS PRN dextrose 50% in water 25-50 mL syringe 12.5-25 g INTRAVENOUS PRN dextrose 40 % 15 g 15 g ORAL PRN glucagon 1 mg injection (GLUCAGEN) 1 mg SUBCUTANEOUS PRN acetaminophen 650 mg tab(s) (TYLENOL) 650 mg ORAL/FEEDING TUBE q 6 H PRN acetaminophen 650 mg suppository (TYLENOL) 650 mg RECTAL q 6 H PRN ALLERGIES Allergen Reactions - Rhubarb Rash, Hives - Heparin Other: See Comments Per patient history of HIT - was on angiomax however then took l fondaparinux for bridging to coumadin. - Iv Contrast [Iodine] Other: See Comments shuts kidneys down per patient - Rituximab Other: See Comments Elevated cardiac enzymes COMPLETE REVIEW OF SYSTEMS CONSTITUTIONAL: No weight loss, malaise or fevers. HEENT: Negative for frequent or significant headaches, No changes in hearing or vision, no nose bleeds or other nasal problems. RESPIRATORY: See HPI CARDIOVASCULAR: See HPI GI: Negative for abdominal discomfort, blood in stools or black stools or change in bowel habits. : No history of dysuria, frequency, or incontinence and No difficulty urination, nocturia >1 times per night or hematuria. MUSCULOSKELETAL: See HPI ENDOCRINE: Negative for cold or heat intolerance, polyuria, polydipsia and goiter HEMATOLOGIC/LYMPHATIC: See HPI NEUROLOGIC: No history or headaches, syncope, paralysis, seizures or tremors. INTEGUMENTARY: Negative for lesions, rash, and itching. Objective PHYSICAL EXAM Physical Exam Performed Patient Vitals for the past 24 hrs: BP Temp Temp src Pulse Resp SpO2 Weight 10/28/17 0931 152/70 36.9 ?C (98.4 ?F) Oral 97 30 - - 10/28/17 0916 157/71 36.8 ?C (98.3 ?F) Oral 102 (!) 40 - - 10/28/17 0900 161/75 - Oral 98 (!) 37 94 % - 10/28/17 0800 180/76 - - 89 17 92 % - 10/28/17 0700 189/83 36.9 ?C (98.4 ?F) Oral 101 30 99 % - 10/28/17 0625 177/82 - - 92 25 99 % - 10/28/17 0600 187/87 - - 107 24 100 % 121.4 kg (267 lb 10.2 oz) 10/28/17 0500 174/78 - - 92 25 99 % - 10/28/17 0400 180/91 36.4 ?C (97.5 ?F) Axillary 96 19 96 % - 10/28/17 0300 146/82 - - 84 19 99 % - 10/28/17 0200 179/75 - - 91 13 96 % - 10/28/17 0100 168/79 - - 100 30 96 % - 10/28/17 0000 172/79 36.1 ?C (97 ?F) Axillary 92 16 97 % - 10/27/17 2300 181/83 - - 101 26 94 % - 10/27/17 2200 184/88 - - 94 22 98 % - 10/27/17 2100 142/88 - - 80 19 97 % - 10/27/17 2010 185/87 - - 97 26 95 % - 10/27/17 2000 (!) 213/98 - - 101 30 94 % - 10/27/171956 - 36.4 ?C (97.5 ?F) - - - - - 10/27/17 1900 182/106 - - 99 20 98 % - 10/27/17 1850 146/90 36.5 ?C (97.7 ?F) Axillary 82 16 - - 10/27/17 1800 148/97 - - 87 16 99 % - 10/27/17 1733 - - - - 12 97 % - 10/27/17 1700 140/94 - - 98 30 93 % - 10/27/17 1650 156/98 36.4 ?C (97.5 ?F) Axillary 99 18 - - 10/27/17 1645 - - - - 20 - - 10/27/17 1640 172/82 36.3 ?C (97.3 ?F) - 108 (!) 35 - - 10/27/17 1630 - 36.3 ?C (97.3 ?F) Oral 99 20 95 % - 10/27/17 1600 154/89 - - 101 20 95 % - 10/27/17 1500 151/89 - - 82 16 97 % - 10/27/17 1400 168/90 - - 85 19 94 % - 10/27/17 1338 - - - - 14 95 % - 10/27/17 1300 173/81 - - 99 (!) 45 97 % - 10/27/17 1200 186/84 - - 101 (!) 38 96 % - 10/27/17 1100 159/76 - - 98 (!) 32 92 % - Intake/Output Summary (Last 24 hours) at 10/28/17 1014 Last data filed at 10/28/17 0931 Gross per 24 hour Intake 2060 ml Output 2779 ml Net -719 ml CONSTITUTIONAL: Well developed, Well nourished and Obese NEUROLOGIC/PSYCHIATRIC: Oriented to time, place AND person HEENT: PERRLA and EOM's intact LUNGS: Respiratory effort: normal HEART: Regular rhythm, slightly tachy ABDOMEN: Soft and distended, tender to palpation GROIN: deferred 2/2 tenderness INTEGUMENTARY: Wound - No SURGICAL SITES: None MUSCULOSKELETAL: No deformities, extremities with 2+ pitting edema Pulses/Signals: Carotid Brachial Radial Ulnar Femoral Popliteal Dorsalis Pedis Posterior Tibial Peroneal Right Palpable +2 Palpable +1 Palpable +2 Palpable 0 Palpable +1 Palpable +1 Palpable +1 Palpable +1 Deferred Left Palpable +2 Palpable +1 Palpable +2 Palpable 0 Deferred Palpable +1 Palpable +1 Palpable +1 Deferred Does the patient have critical limb ischemia, rest pain, tissue loss or gangrene?: No DATA: Laboratory: Recent Labs 10/28/17 0606 10/28/17 0005 10/27/172009 WBC 14.68* 16.22* 17.78* HB 6.5* 6.9* 7.4* HCT 19.3* 19.8* 22.2* PLT 27* 31* 48* Recent Labs 10/28/17 0401 10/27/17 1623 10/27/17 0100 10/26/17 0020 NA 131* -- 127* -- 125* K 4.9 -- 5.4* -- 5.4* BUN 33* -- 58* -- 63* CREAT 1.67* -- 2.56* -- 2.84* GLUC 92 -- 118* -- 105* MG 2.0 2.1 2.1 < > -- < > = values in this interval not displayed. Recent Labs 10/26/17 0020 APTT 26.8 INR 1.0 Radiology: 10/2017 IR Arterial Embolization: IMPRESSION: LEFT L1, L2 AND L3 LUMBAR COUNT VENOGRAPHY DEMONSTRATES NO ACTIVE EXTRAVASATION. ?HOWEVER GIVEN THE RECENT BLEEDING FROM LEFT L3 AND RECENT FINDING OF SUSPICIOUS ACTIVE BLEEDING IN THE REGION OF LEFT L2 ON CT ANGIOGRAPHY, DECISION WAS MADE TO PROCEED WITH EMPIRIC EMBOLIZATION OF LEFT L2 AND ADDITIONAL EMBOLIZATION OF LEFT L3 DESCRIBED ABOVE. 10/27/17 Duplex Groin: IMPRESSION Technically difficult exam due to body habitus. Mari Thornton notified with results. ? RIGHT SIDE Negative for pseudoaneurysm and hematoma. External iliac artery patent at distal . Common femoral artery patent at mid . Profunda femoral artery patent at proximal . Superficial femoral artery 50-99% stenosis at proximal . Arteriovenous fistula noted right superficial femoral artery to common femoral vein. Per CT scan dated 10/26/2017, patient has bilateral surgically created arteriovenous fistulas. ? External iliac vein at distal: patent. Retrograde flow noted. Common femoral vein at mid: patent. Retrograde flow noted. Femoral vein at proximal: patent. Retrograde flow noted. Unable to compress the distal external iliac vein, common femoral vein or femoral vein. 10/27/17 CT Abdomen/Pelvis: IMPRESSION: GROSSLY STABLE SIZE OF LARGE, ACUTE/SUBACUTE LEFT RETROPERITONEAL HEMATOMA. ?NO NEW HEMATOMA IS IDENTIFIED. PERSISTENT NEPHROGRAMS POSSIBLY RELATED TO ATN OR REPORTED BILATERAL RENAL VEIN THROMBOSIS SEEN ON THE PRIOR CTA. UNCHANGED MARKED SUBCUTANEOUS EDEMA OF THE FLANKS AND LOWER ABDOMEN/PELVIS/LOWER EXTREMITIES, LARGE COLLATERALS, TRACE ASCITES, AND MILD MESENTERIC STRANDING, LIKELY SECONDARY TO THE PATIENT'S CHRONIC CENTRAL VENOUS THROMBOSIS. STABLE LEFT PLEURAL EFFUSION WITH ASSOCIATED ATELECTASIS. ?UNCHANGED GROUND GLASS OPACITIES IN BOTH LUNGS WHICH ARE NONSPECIFIC AND CAN BE SEEN WITH EDEMA, INFECTION, OR HEMORRHAGE. INTERVAL WORSENED RIGHT LOWER LOBE OPACITY WHICH COULD REPRESENT INCREASED ATELECTASIS/EDEMA WITH AN INFECTIOUS/INFLAMMATORY PROCESSES NOT EXCLUDED. I have personally reviewed the following images/data: CT Scan and Duplex Impression/Recommendations Impression: 27yoF with h/o HTN, CHF, CKD 3 2/2 renal vein 6 total episodes of diffuse alveolar hemorrhage (since 2013), HIT on fondaparinux started on 10/13, APLS c/b DVT/PE requiring extensive percutaneous thrombectomy of her IVC and lower extremity veins + b/l iliac vein stents and IVC endograft (Endoglix AFX, 2012), who presented to [facility] and then [facility] on 10/23 with severe stabbing left-sided abdominal pain radiating to the left arm/leg and was found to have a large left RP bleed, after which she was transferred to [facility] - her Fondaparinux has been held since 10/23, and she received a lumbar artery embolization on 10/27. She has additionally reported right groin pain, for which she received a groin duplex demonstrating known b/l surgically-created AVFs (R SFA-->CFV). No evidence of PSA or groin hematoma. Plan: -AVFs are surgically created and patent, no indication for vascular surgery intervention -right groin pain is most likely referred from large hematoma -care per Primary Team -agree with recs to wrap legs -plans to be discussed with Staff No problems updated. SIGNATURE: Lupillo Newman MD PATIENT NAME: Paloma Cannon DATE: October 28, 2017 TIME: 10:14 AM PAGER/CONTACT #: [phone] PROGRESS Observed: 10/28/2017 Status: COMPLETED Source: [place] 8:36 AM [facility] REPOSITORY O ID: [id number] Author: Germán Lopez Service: Critical Care Author Type: Physician Type: Progress Notes Filed: 10/28/2017 8:50 AM Note Text: DR. FRED STONE, SR. HOSPITAL STAFF PHYSICIAN NOTE OF PERSONAL INVOLVEMENT IN CARE I have reviewed the progress note obtained and documented by the physician child nutrition assistant and I personally participated in the fernandes components. I have discussed the case and management of the patient's care. The following comments revise or confirm relevant fernandes components of the note. IMPRESSION:?This is a 27 yo F with above mentioned past medical history most notable for antiphospholipid syndrome with complications of multiple embolic events on chronic anticoagulation, cyclophosphamide and plasmapharesis who was recently admitted for DAH, acute respiratory failure requiring intubation and within a day of discharge presented with retroperitoneal bleed and acute kidney injury. She required embolization, however is still requiring transfusions, and dialysis for CAPRICE. 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 History of HIT?? PLAN:? Vascular medicine and hematology consult to assist with further management of ?APLS Consult vascular surgery MICU ppx Start Amlodipine 10 mg daily Hydralazine 10 q2 hrs Start cyclophosphamide Serial CBC, transfuse as needed IR follow up, consider repeating angiogram- This patient has a high probability of sudden, clinically significant deterioration, which requires the highest level of physician preparedness to intervene urgently. I managed/supervised life or organ supporting interventions that required frequent physician assessment. I devoted my full attention to the direct care of this patient for the amount of time indicated below. Time I spent with family or surrogate(s) is included only if the patient was incapable of providing the necessary information or participating in medical decision making. Time devoted to teaching and to any procedures I billed separately is not included. Critical Care Documentation: The patient has the following organ/system impairment(s): Acute blood loss Time spent providing critical care services: 35 minutes. SIGNATURE: Germán Lopez MD [facility] PAGER:[phone] DATE of SERVICE: October 28, 2017 CONSULT PROG Observed: 10/28/2017 Status: COMPLETED Source: [place] 6:54 AM [facility] REPOSITORY O ID: [id number] Author: Jonatan Blas Service: Nephrology Author Type: Physician Type: Consult Progress Note Filed: 10/28/2017 11:54 AM Note Text: CONSULT PROGRESS NOTE NEPHROLOGY SERVICE Subjective INTERVAL HISTORY: - No acute events overnight - Patient remains on CRRT - Qd 2500, 3K, UF 150 mL/hr - No issues - This morning the patient states that she has pain in her legs from fluid, no further complaints or concerns MEDICATIONS: Current hospital medications: cefTRIAXone 1 g in D5W 100 mL MB+ (ROCEPHIN) 1 g INTRAVENOUS q 24 H senna 8.6 mg tab(s) (SENOKOT) 8.6 mg ORAL/FEEDING TUBE BID pantoprazole DR 40 mg tab(s) (PROTONIX) 40 mg ORAL DAILY (6 AM) ondansetron 8 mg tab(s) (ZOFRAN) 8 mg ORAL q 8 H PRN diphenhydrAMINE 50 mg (BENADRYL) 50 mg ORAL/FEEDING TUBE q 6 H PRN sulfamethoxazole-trimethoprim 400-80 mg 2 tablet (BACTRIM,SEPTRA) 2 tablet ORAL/FEEDING TUBE -WE- predniSONE (DELTASONE) tab(s) 80 mg 80 mg ORAL/FEEDING TUBE DAILY gabapentin 100 mg cap(s) (NEURONTIN) 100 mg ORAL q 12 H hydrocortisone sodium succinate (PF) 100 mg injection (Solu- CORTEF) 100 mg INTRAVENOUS q 4 H PRN sevelamer carbonate 800 mg tab(s) (RENVELA) 800 mg ORAL TID w MEALS HYDROmorphone WAITER/WAITRESS CABIN CLASS 0.5 mg/mL in NaCl 0.9% 100 mL INTRAVENOUS CONTINUOUS diphenhydrAMINE 50 mg injection (BENADRYL) 50 mg INTRAVENOUS q 4 H PRN NaCl 0.9% iv infusion 5-30 mL/hr INTRAVENOUS CONTINUOUS prochlorperazine 5 mg injection (COMPAZINE) 5 mg INTRAVENOUS q 6 H PRN 0.9% NaCl 2-10 mL 2-10 mL INTRAVENOUS PRN sodium citrate 4% 3-6 mL catheter lock 3-6 mL INTRALUMINAL PRN phosphorus 500 mg tab(s) (K PHOS NEUTRAL) 500 mg ORAL/FEEDING TUBE PRN sodium phosphate 15 mmol in D5W 250 mL 15 mmol INTRAVENOUS PRN sodium phosphate 30 mmol in D5W 250 mL 30 mmol INTRAVENOUS PRN sodium phosphate 45 mmol in D5W 250 mL 45 mmol INTRAVENOUS PRN 0.9% NaCl 3-5 mL 3-5 mL INTRAVENOUS q 12 H insulin regular human injection (short acting) (NovoLIN R,HumuLIN R) SUBCUTANEOUS q 6 H insulin regular 250 units in NaCl 0.9% 250 mL iv infusion - ICU NOMOGRAM 0.5-30 Units/hr INTRAVENOUS CONTINUOUS insulin regular human iv bolus 2-10 Units 2-10 Units INTRAVENOUS PRN dextrose 50% in water 25-50 mL syringe 12.5-25 g INTRAVENOUS PRN dextrose 40 % 15 g 15 g ORAL PRN glucagon 1 mg injection (GLUCAGEN) 1 mg SUBCUTANEOUS PRN acetaminophen 650 mg tab(s) (TYLENOL) 650 mg ORAL/FEEDING TUBE q 6 H PRN acetaminophen 650 mg suppository (TYLENOL) 650 mg RECTAL q 6 H PRN Objective PHYSICAL EXAM: BP 161/75 Pulse 91 Temp 36.9 ?C (98.4 ?F) (Oral) Resp 9 Ht 160 cm (5' 3) Wt 114.3 kg (251 lb 15.8 oz) SpO2 97% BMI 44.64 kg/m2 Intake/Output Summary (Last 24 hours) at 10/26/17 1617 Last data filed at 10/26/17 1400 Gross per 24 hour Intake 818 ml Output 93 ml Net 725 ml Constitutional: No acute distress and Responsive Neck: Trachea midline No mass palpable Cardiovascular: S1S2 RRR, no rubs or gallops, there is significant dependent and peripheral edema noted Respiratory: Normal respiratory effort, equal excursion bilaterally, decreased breath sounds in bilateral bases Abdomen: Distended, soft, abdominal wall edema noted. Bowel sounds hypoactive Psychiatric: Alert and oriented x self, place, time, and setting Normal mood/affect Vascular Access: Hemodialysis catheter location: Left Tunneled internal jugular. Exit site demonstrates: normal findings DATA: Diagnostic tests reviewed for today's visit: Recent Labs 10/26/17 0020 10/25/17 0500 10/24/17 2230 10/24/17 1355 10/24/17 0405 10/24/17 0030 10/23/17 0630 10/22/17 0412 10/21/17 0356 NA 125* 125* 128* 129* -- 130* < > 139 138 138 K 5.4* 5.5* 5.0 6.0* -- 5.9* < > 4.1 3.8 3.8 CHLOR 83* 85* 86* 89* -- 89* < > 97* 93* 93* CO2 20* 25 24 27 -- 26 < > 31 34* 30 BUN 63* 75* 77* 73* -- 69* < > 63* 63* 63* CREAT 2.84* 2.86* 2.77* 2.55* -- 2.05* < > 1.35 1.38* 1.48* GLUC 105* 97 149* 109* -- 154* < > 158* 96 113* ANION 22* 15 18 13 -- 15 < > 11 11 15 CA 8.0* 7.8* 7.6* 7.9* -- 7.8* < > 8.0* 8.5 8.9 P 8.4* 8.6* -- -- 7.8* -- -- -- 2.7 2.8 MG -- 2.1 -- -- 2.1 -- -- 2.0 2.1 2.1 < > = values in this interval not displayed. Recent Labs 10/26/17 1323 10/26/17 0640 10/26/17 0020 10/25/17 1814 WBC 19.28* -- 21.82* 22.45* HB 7.2* 5.5* 6.6* 7.7* HCT 21.2* -- 19.3* 22.5* PLT 68* -- 44* 40* Recent Labs 10/26/17 0020 10/22/17 0412 INR 1.0 1.1 APTT 26.8 -- Recent Labs 10/26/17 0229 LACT 1.5 Recent Labs 10/28/17 0005 10/20/17 0415 06/09/17 1024 ALLA -- -- 156.0 -- 363.9* TRANSFERSAT -- -- 9* -- 12* B12 -- -- -- -- 646 HB 6.9* < > 8.9* < > -- < > = values in this interval not displayed. Recent Labs 10/28/17 0401 10/26/17 0020 CA 8.6 < > 8.0* P 4.3 < > 8.4* ALB -- -- 3.2* < > = values in this interval not displayed. 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 Nephrology following for CAPRICE on CKD III. 1. Oligo-anuric CAPRICE on CKD III - Baseline creatinine ~1.2-1.5 mg/dL - Etiology of CAPRICE - likely multifactorial in the setting of acute blood loss anemia, mass effect on kidney as well as possible concern for a vasculitic process - Access: [facility] TDC - PAINT COATING MACHINE OPERATOR initiated on 10/26/17 - No current signs of renal recovery Associated Problems Electrolytes - Mild hyponatremia - improving, however, improving at somewhat a rapid rate, will adjust Qd - Otherwise, within normal limits Acid-base - within normal limits Volume status - overloaded Hypertension - not well controlled Other Problems Acute blood loss anemia Anti-phospholipid antibody syndrome DAH HIT HFpEF Post-thrombotic syndrome Peripheral neuropathy PLAN - Stop sevelamer while on CRRT (done) - Increase UF to 250 (done) - Will continue to increase as tolerated - Check magnesium and phosphorus daily and replete as needed - Dose medications for eGFR 20 - 30 mL/min - Ceftriaxone 2 g IV Q12-24 hours - Non renal feeds while on CRRT - Daily weights - Strict I/O's Consent for PAINT COATING MACHINE OPERATOR: PAINT COATING MACHINE OPERATOR initiation date: 10/26/17 Consent obtained and in EMR. Dr. Laya Peters (pager [phone]) will assume care on MondayOctober 30 SIGNATURE: Day Vásquez MD PATIENT NAME: Paloma Cannon DATE: October 28, 2017 TIME: 6:54 AM PAGER: [phone] [facility] [place] DR. FRED STONE, SR. HOSPITAL STAFF PHYSICIAN NOTE OF PERSONAL INVOLVEMENT IN CARE I have reviewed the progress note obtained and documented by Dr. Vásquez and I personally participated in the fernandes components. I have discussed the case and management of the patient's care. I have revised and amended the note to reflect my examination, assessment and plan. I saw the patient on CVVHD. Jonatan Blas MD Staff Nephrology and Hypertension [facility] Beeper Number: [id number] Date of Service: 10/28/2017 Time of Service: 7:18 AM CONSULT PROG Observed: 10/28/2017 Status: COMPLETED Source: [place] 6:08 AM [facility] REPOSITORY HNO ID: [id number] Author: Morteza Smart Service: Vascular Medicine Author Type: Physician Type: Consult Progress Note Filed: 11/20/2017 9:31 AM Note Text: VASCMED CONSULT PROGRESS NOTE SERVICE DATE: 10/28/2017 SERVICE TIME: 6:08AM Subjective Follow Up Regarding: Retroperitoneal bleed and antiphospholipid syndrome INTERVAL HPI and PERTINENT ROS: ATTENDING NOTE: The patient is seen and examined. I have reviewed the note below and my concerns are in bold and/or underlined below. Difficult situation in this patient with a tendency to thrombose given her antiphospholipid syndrome but now bleeding. She is to receive another unit of blood today. Fondaparinux assay reviewed, no antidote for this anticoagulant. We will follow with you. Morteza Smart MD Yesterday, CT ABD pelvis showed: GROSSLY STABLE SIZE OF LARGE, ACUTE/SUBACUTE LEFT RETROPERITONEAL HEMATOMA. ?NO NEW HEMATOMA IS IDENTIFIED. No pseudoaneurysm on groin study yesterday. Surgically created fistula was seen Did not receive PRBC/platelets transfusions overnight No acute events overnight On continuous dialysis Hgb 6.9 (6.6-->6.6-->7.0-->7.4) Plt 31 (47-->46-->43-->48) Mild pain in her back/abdomen, down trending. No other signs of bleeding. Denies hemoptysis Swelling has been stable Current Facility-Administered Medications: cefTRIAXone 1 g in D5W 100 mL MB+ (ROCEPHIN) 1 g INTRAVENOUS q 24 H senna 8.6 mg tab(s) (SENOKOT) 8.6 mg ORAL/FEEDING TUBE BID pantoprazole DR 40 mg tab(s) (PROTONIX) 40 mg ORAL DAILY (6 AM) ondansetron 8 mg tab(s) (ZOFRAN) 8 mg ORAL q 8 H PRN diphenhydrAMINE 50 mg (BENADRYL) 50 mg ORAL/FEEDING TUBE q 6 H PRN sulfamethoxazole-trimethoprim 400-80 mg 2 tablet (BACTRIM,SEPTRA) 2 tablet ORAL/FEEDING TUBE - predniSONE (DELTASONE) tab(s) 80 mg 80 mg ORAL/FEEDING TUBE DAILY gabapentin 100 mg cap(s) (NEURONTIN) 100 mg ORAL q 12 H hydrocortisone sodium succinate (PF) 100 mg injection (Solu- CORTEF) 100 mg INTRAVENOUS q 4 H PRN sevelamer carbonate 800 mg tab(s) (RENVELA) 800 mg ORAL TID w MEALS HYDROmorphone WAITER/WAITRESS CABIN CLASS 0.5 mg/mL in NaCl 0.9% 100 mL INTRAVENOUS CONTINUOUS diphenhydrAMINE 50 mg injection (BENADRYL) 50 mg INTRAVENOUS q 4 H PRN NaCl 0.9% iv infusion 5-30 mL/hr INTRAVENOUS CONTINUOUS prochlorperazine 5 mg injection (COMPAZINE) 5 mg INTRAVENOUS q 6 H PRN 0.9% NaCl 2-10 mL 2-10 mL INTRAVENOUS PRN sodium citrate 4% 3-6 mL catheter lock 3-6 mL INTRALUMINAL PRN phosphorus 500 mg tab(s) (K PHOS NEUTRAL) 500 mg ORAL/FEEDING TUBE PRN Or sodium phosphate 15 mmol in D5W 250 mL 15 mmol INTRAVENOUS PRN Or sodium phosphate 30 mmol in D5W 250 mL 30 mmol INTRAVENOUS PRN Or sodium phosphate 45 mmol in D5W 250 mL 45 mmol INTRAVENOUS PRN 0.9% NaCl 3-5 mL 3-5 mL INTRAVENOUS q 12 H insulin regular human injection (short acting) (NovoLIN R,HumuLIN R) SUBCUTANEOUS q 6 H insulin regular 250 units in NaCl 0.9% 250 mL iv infusion - ICU NOMOGRAM 0.5-30 Units/hr INTRAVENOUS CONTINUOUS insulin regular human iv bolus 2-10 Units 2-10 Units INTRAVENOUS PRN dextrose 50% in water 25-50 mL syringe 12.5-25 g INTRAVENOUS PRN dextrose 40 % 15 g 15 g ORAL PRN glucagon 1 mg injection (GLUCAGEN) 1 mg SUBCUTANEOUS PRN acetaminophen 650 mg tab(s) (TYLENOL) 650 mg ORAL/FEEDING TUBE q 6 H PRN And acetaminophen 650 mg suppository (TYLENOL) 650 mg RECTAL q 6 H PRN Objective PHYSICAL EXAM: BP 180/91 Pulse 96 Temp 36.4 ?C (97.5 ?F) Resp 19 Ht 160 cm (5' 3) Wt 115.1 kg (253 lb 12 oz) SpO2 96% BMI 44.95 kg/m2 General Appearance: Less pale. Alert. Smiling Heart: RRR without murmur, gallop or rubs. Lungs: CTA=Bilat ant Abdomen: Abdomen soft, not tender Upper Extremities: Moderate edema b/l. Good capillary refill. Lower Extremities: Legs wrapped. Skin: Ecchymoses on R arm. DATA: Diagnostic tests reviewed for today's visit: Most recent labs and imaging results. Component Latest Ref Rng AND Units 10/22/2017 10/23/2017 10/25/2017 10/26/2017 10/26/2017 10/26/2017 10/27/2017 10/27/2017 10/27/2017 10/27/2017 10/28/2017 12:20 AM 1:23 PM 8:20 PM 1:00 AM 6:30 AM 11:35 AM 8:10 PM WBC 3.70 - 11.00 k/uL 18.78 (H) 17.22 (H) 21.88 (H) 21.82 (H) 19.28 (H) 15.09 (H) 15.08 (H) 15.02 (H) 16.52 (H) 17.78 (H) 16.22 (H) RBC 3.90 - 5.20 m/uL 3.03 (L) 1.75 (L) 2.38 (L) 2.22 (L) 2.38 (L) 2.08 (L) 2.24 (L) 2.20 (L) 2.33 (L) 2.54 (L) 2.30 (L) Hemoglobin 11.5 - 15.5 g/dL 8.3 (L) 4.8 (LL) 7.0 (L) 6.6 (L) 7.2 (L) 6.2 (L) 6.7 (L) 6.6 (L) 7.0 (L) 7.4 (L) 6.9 (L) Hematocrit 36.0 - 46.0 % 27.5 (L) 15.6 (L) 20.0 (L) 19.3 (L) 21.2 (L) 18.2 (L) 19.5 (L) 19.2 (L) 19.9 (L) 22.2 (L) 19.8 (L) MCV 80.0 - 100.0 fL 90.8 89.1 84.0 86.9 89.1 87.5 87.1 87.3 85.4 87.4 86.1 MCH 26.0 - 34.0 pG 27.4 27.4 29.4 29.7 30.3 29.8 29.9 30.0 30.0 29.1 30.0 MCHC 30.5 - 36.0 g/dL 30.2 (L) 30.8 35.0 34.2 34.0 34.1 34.4 34.4 35.2 33.3 34.8 RDW-CV 11.5 - 15.0 % 19.1 (H) 19.8 (H) 15.8 (H) 15.6 (H) 15.5 (H) 15.6 (H) 15.4 (H) 15.7 (H) 16.3 (H) 16.5 (H) 16.1 (H) Platelet Count 150 - 400 k/uL 223 187 92 (L) 44 (L) 68 (L) 54 (L) 47 (L) 46 (L) 43 (L) 48 (L) 31 (L) Component Latest Ref Rng AND Units 10/23/2017 10/23/2017 10/24/2017 10/24/2017 10/24/2017 10/25/2017 10/27/2017 10/28/2017 6:30 AM 8:30 PM 12:30 AM 1:55 PM 10:30 PM Protein, Total 6.0 - 8.4 g/dL 4.3 (L) 4.7 (L) Albumin 3.5 - 5.0 g/dL 3.2 (L) 3.0 (L) Calcium 8.5 - 10.2 mg/dL 8.0 (L) 7.8 (L) 7.8 (L) 7.9 (L) 7.6 (L) 7.8 (L) 7.6 (L) 8.6 Bilirubin, Total 0.0 - 1.5 mg/dL 0.4 0.8 Alkaline Phosphatase 40 - 150 U/L 34 (L) 44 AST 7 - 40 U/L 14 73 (H) Glucose 74 - 99 mg/dL 158 (H) 172 (H) 154 (H) 109 (H) 149 (H) 97 118 (H) 92 BUN 7 - 21 mg/dL 63 (H) 66 (H) 69 (H) 73 (H) 77 (H) 75 (H) 58 (H) 33 (H) Creatinine 0.58 - 0.96 mg/dL 1.35 1.86 (H) 2.05 (H) 2.55 (H) 2.77 (H) 2.86 (H) 2.56 (H) 1.67 (H) Sodium 136 - 144 mmol/L 139 132 130 (L) 129 (L) 128 (L) 125 (L) 127 (L) 131 (L) Potassium 3.7 - 5.1 mmol/L 4.1 6.2 (HH) 5.9 (H) 6.0 (H) 5.0 5.5 (H) 5.4 (H) 4.9 Chloride 97 - 105 mmol/L 97 (L) 90 (L) 89 (L) 89 (L) 86 (L) 85 (L) 87 (L) 91 (L) CO2 22 - 30 mmol/L 31 26 26 27 24 25 23 28 Anion Gap 9 - 18 mmol/L 11 16 15 13 18 15 17 12 ALT 0 - 45 U/L 9 106 (H) eGFR- 57 (L) 39 (L) 35 (L) 27 (L) 25 (L) 24 (L) 27 44 eGFR-All Other Races . 47 (L) 32 (L) 29 (L) 22 (L) 20 (L) 20 (L) 22 37 Component Latest Ref Rng AND Units 10/22/2017 10/26/2017 PT INR 0.9 - 1.3 1.1 1.0 APTT 23.0 - 32.4 sec 26.8 Component Latest Ref Rng AND Units 10/18/2017 10/20/2017 10/26/2017 10/27/2017 Fondaparinux 0.00 mg/L 1.69 (H) 2.28 (H) 0.94 (H) 0.67 (H) CT ABD/PEL 10/27/2017 IMPRESSION: GROSSLY STABLE SIZE OF LARGE, ACUTE/SUBACUTE LEFT RETROPERITONEAL HEMATOMA. ?NO NEW HEMATOMA IS IDENTIFIED. PERSISTENT NEPHROGRAMS POSSIBLY RELATED TO ATN OR REPORTED BILATERAL RENAL VEIN THROMBOSIS SEEN ON THE PRIOR CTA. UNCHANGED MARKED SUBCUTANEOUS EDEMA OF THE FLANKS AND LOWER ABDOMEN/PELVIS/LOWER EXTREMITIES, LARGE COLLATERALS, TRACE ASCITES, AND MILD MESENTERIC STRANDING, LIKELY SECONDARY TO THE PATIENT'S CHRONIC CENTRAL VENOUS THROMBOSIS. STABLE LEFT PLEURAL EFFUSION WITH ASSOCIATED ATELECTASIS. ?UNCHANGED GROUND GLASS OPACITIES IN BOTH LUNGS WHICH ARE NONSPECIFIC AND CAN BE SEEN WITH EDEMA, INFECTION, OR HEMORRHAGE. INTERVAL WORSENED RIGHT LOWER LOBE OPACITY WHICH COULD REPRESENT INCREASED ATELECTASIS/EDEMA WITH AN INFECTIOUS/INFLAMMATORY PROCESSES NOT EXCLUDED. CTA ABD/PEL 10/26/2017 IMPRESSION: LARGE LEFT-SIDED RETROPERITONEAL HEMATOMA WITH A STREAK OF INCREASED DENSITY DESCRIBED ABOVE SUGGESTIVE OF ACTIVE BLEEDING, LIKELY SUPPLIED BY THE THE LEFT L2 LUMBAR ARTERY. STATUS POST BIFURCATED LOWER IVC AND BILATERAL ILIAC VEIN STENT GRAFT. ? THE IVC IS COMPLETELY OCCLUDED SEVERAL CENTIMETERS ABOVE THE CONFLUENCE OF ILIAC VEINS AND RECONSTITUTED AT THE LEVEL OF THE LIVER BY THE HEPATIC VEINS. ?BILATERAL RENAL VEINS APPEAR OCCLUDED WELL. ?VENOUS OUTFLOW OF THE KIDNEYS IS NOT READILY APPARENT. ?MULTIPLE SUBCUTANEOUS ANTERIOR ABDOMINAL WALL, LUMBAR VEIN AND AZYGOS VEIN COLLATERALS. Anasarca. LEFT GREATER THAN RIGHT LOWER LOBE LUNG ATELECTASIS AND SMALL LEFT PLEURAL EFFUSION. Embolization 10/26/2017 LEFT L1, L2 AND L3 LUMBAR COUNT VENOGRAPHY DEMONSTRATES NO ACTIVE EXTRAVASATION. ?HOWEVER GIVEN THE RECENT BLEEDING FROM LEFT L3 AND RECENT FINDING OF SUSPICIOUS ACTIVE BLEEDING IN THE REGION OF LEFT L2 ON CT ANGIOGRAPHY, DECISION WAS MADE TO PROCEED WITH EMPIRIC EMBOLIZATION OF LEFT L2 AND ADDITIONAL EMBOLIZATION OF LEFT L3 DESCRIBED ABOVE. Le venous DUS 10/24/2017 IMPRESSION Technically difficult exam due to patient's body habitus and edema. ? RIGHT SIDE - DEEP VEINS Technically limited study. Negative for acute deep vein thrombosis in vessels visualized. LEFT SIDE - DEEP VEINS Technically limited study. Negative for acute deep vein thrombosis in vessels visualized. ? Technologist: Samanta Macario RVS Referring physician: SAPNA WYATT Impression/Recommendations F, 27 Known for history?of -antiphospholipid syndrome (triple positive) on long-term anticoagulation?w/warfarin, IVC thrombosis s/p s/p b/l iliac v. 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 Andujar, Hematology). ? Recently discharged on 10/22 on fondaparinux 7.5mg daily ? _retroperitoneal bleeding w/ significant blood transfusion requirements (11 units) ? S/p embolization of the left L3 artery on 10/23, with gelfoam and coils?w/ incidental finding of a large lower extremity fistula, per vasc surgery in [place] surgically created, and no need for intervention S/p redo embolization L3 and embolization L2 on 10/26 Hgb is stable. Transfusions requirements are decreasing. Fondaparinux assays showed decreasing levels of the blood. ? Plan => Given the importance of the bleeding and blood products requirements, we would not consider resuming anticoagulation before at least 14 days after bleeding has ceased. Patient is still at very high risk of thrombosis. => Transfusions per primary. Please avoid platelets transfusion as much as possible => We recommend IPCD as DVT prophylaxis => One of our spiritual minister will come to wrap her legs today => Please avoid all heparin or heparin-related products SIGNATURE: Linnette Almendarez MD PATIENT NAME: Paloma Cannon DATE: October 28, 2017 TIME: 6:58 AM PAGER/CONTACT #: [phone] DR. FRED STONE, [facility]. HOSPITAL STAFF PHYSICIAN NOTE OF PERSONAL INVOLVEMENT IN CARE I have reviewed the documentation obtained and documented by the Fellow and have reviewed and updated the problem list as appropriate. I have personally performed a face to face assessment of the patient and have personally participated in the fernandes components. I have discussed the case and management of the patient's care. STAFF PHYSICIAN: Morteza Smart MD For services provided on 10/28/2017. DATE OF SERVICE: November 20, 2017 TIME OF SERVICE: 9:31 AM CBC Collected: 10/28/2017 Status: F Source: [place] 6:06 AM [facility] REPOSITORY TYPE CODE TESTS RESULT OUT OF REFERENCE UNITS RANGE LAB WBC 3.70-11.00 k/uL WBC High 14.68 LAB RBC 3.90-5.20 m/uL Low RBC 2.21 LAB HGB 11.5-15.5 g/dL Low Hemoglobin 6.5 LAB HCT 36.0-46.0 % Low Hematocrit 19.3 LAB MCV 80.0-100.0 fL MCV 87.3 LAB MCH 26.0-34.0 pG MCH 29.4 LAB MCHC 30.5-36.0 g/dL MCHC 33.7 LAB RDWCV 11.5-15.0 % RDW-CV High 16.5 LAB PLTCT 150-400 k/uL Low Platelet Count 27 Result Comment: Result checked and verified No clot detected. LAB MPV 9.0-12.7 fL MPV 12.6 LAB ABSNUC <0.01 k/uL High Absolute nRBC 1.23 Performed By: #### CBC #### [facility] [address] [place], [place] [address] BASIC METABOLIC PANL Collected: 10/28/2017 Status: F Source: [place] 4:01 [facility] REPOSITORY TYPE CODE TESTS RESULT OUT OF REFERENCE UNITS RANGE LAB GLU 74-99 mg/dL Glucose 92 Result Comment: The [place] [employer] (ADA) provides guidance for cutoff values for fasting glucose and random glucose. The ADA defines fasting as no caloric intake for at least 8 hours. Fas ting plasma glucose results between 100 to 125 mg/dL indicate increased risk for diabetes (prediabetes). Fasting plasma glucose results greater than or equal to 126 mg/dL meet the criteria for diagnosis of diabetes. In the absence of unequivocal hyperglycemia, results should be confirmed by repeat testing. In a patient with classic symptoms of hyperglycemia or hyperglycemic crisis, random plasma glucose results greater than or equal to 200 mg/dL meet the criteria for diagnosis of diabetes. Reference: Standards of Medical Care in Diabetes 2016, [place] [employer]. Diabetes Care. 2016.39(Suppl 1). LAB BUN 7-21 mg/dL BUN High 33 LAB CRET 0.58-0.96 mg/dL Creatinine High 1.67 LAB NA 136-144 mmol/L Low Sodium 131 LAB K 3.7-5.1 mmol/L Potassium 4.9 LAB CL 97-105 mmol/L Low Chloride 91 LAB CO2 22-30 mmol/L CO2 28 LAB AGAP 9-18 mmol/L Anion Gap 12 LAB CA 8.5-10.2 mg/dL Calcium, Total 8.6 LAB GFRAA eGFR- Amer. 44 LAB GFRNAA . eGFR-All Other Races 37 Result Comment: eGFR (Estimated GFR) Units of measure: mL/min/1.73 meters squared eGFR is derived from the reexpressed MDRD Study equation using the following parameters: serum creatinine, age, gender and race. The creatinine assay has been calibrated to be traceable to IDMS. An eGFR <60 mL/min/1.73m2 for >3 months is consistent with chronic kidney disease. Refer to KDOQI guidelines for clinical interpretation. In patients with unstable renal function, e.g. those with acute kidney injury, the eGFR may not accurately reflect actual GFR. Performed By: #### BMP, MG1, PHOS #### [facility] [address] [place], [place] [address] MAGNESIUM Collected: 10/28/2017 Status: F Source: [place] 4:01 [facility] REPOSITORY TYPE CODE TESTS RESULT OUT OF REFERENCE UNITS RANGE LAB MG 1.7-2.3 mg/dL Magnesium 2.0 Performed By: #### BMP, MG1, PHOS #### [facility] [address] [place], [place] [address] PHOSPHORUS Collected: 10/28/2017 Status: F Source: [place] 4:01 AM [facility] REPOSITORY TYPE CODE TESTS RESULT OUT OF REFERENCE UNITS RANGE LAB PHOS 2.7-4.8 mg/dL Phosphorus 4.3 Performed By: #### BMP, MG1, PHOS #### [facility] [address] [place], [place] [address] CBC Collected: 10/28/2017 Status: F Source: [place] 12:05 AM [facility] REPOSITORY TYPE CODE TESTS RESULT OUT OF REFERENCE UNITS RANGE LAB WBC 3.70-11.00 k/uL WBC High 16.22 LAB RBC 3.90-5.20 m/uL Low RBC 2.30 LAB HGB 11.5-15.5 g/dL Low Hemoglobin 6.9 LAB HCT 36.0-46.0 % Low Hematocrit 19.8 LAB MCV 80.0-100.0 fL MCV 86.1 LAB MCH 26.0-34.0 pG MCH 30.0 LAB MCHC 30.5-36.0 g/dL MCHC 34.8 LAB RDWCV 11.5-15.0 % RDW-CV High 16.1 LAB PLTCT 150-400 k/uL Low Platelet Count 31 Result Comment: Result checked and verified No clot detected. LAB MPV 9.0-12.7 fL MPV 11.8 LAB ABSNUC <0.01 k/uL High Absolute nRBC 1.34 Performed By: #### CBC #### [facility] [address] [place], [place] [address] CBC Collected: 10/27/2017 Status: F Source: [place] 8:10 PM [facility] REPOSITORY TYPE CODE TESTS RESULT OUT OF REFERENCE UNITS RANGE LAB WBC 3.70-11.00 k/uL WBC High 17.78 LAB RBC 3.90-5.20 m/uL Low RBC 2.54 LAB HGB 11.5-15.5 g/dL Low Hemoglobin 7.4 LAB HCT 36.0-46.0 % Low Hematocrit 22.2 LAB MCV 80.0-100.0 fL MCV 87.4 LAB MCH 26.0-34.0 pG MCH 29.1 LAB MCHC 30.5-36.0 g/dL MCHC 33.3 LAB RDWCV 11.5-15.0 % RDW-CV High 16.5 LAB PLTCT 150-400 k/uL Low Platelet Count 48 Result Comment: No clot detected. LAB MPV 9.0-12.7 fL MPV 12.4 LAB ABSNUC <0.01 k/uL High Absolute nRBC 1.07 Performed By: #### CBC #### [place] [address] MAGNESIUM Collected: 10/27/2017 Status: F Source: [place] 4:[address] [place] [address] REPOSITORY TYPE CODE TESTS RESULT OUT OF REFERENCE UNITS RANGE LAB MG 1.7-2.3 mg/dL Magnesium 2.1 Performed By: #### MG1, PHOS #### [place] [address] PHOSPHORUS Collected: 10/27/2017 Status: F Source: [place] 4:23 [facility] REPOSITORY TYPE CODE TESTS RESULT OUT OF REFERENCE UNITS RANGE LAB PHOS 2.7-4.8 mg/dL High Phosphorus 5.4 Performed By: #### MG1, PHOS #### [place] [address] FONDAPARINUX ASSAY Collected: 10/27/2017 Status: F Source: [place] 4:23 [facility] REPOSITORY TYPE CODE TESTS RESULT OUT OF REFERENCE UNITS RANGE LAB JEF 0.00 mg/L Fondaparinux High 0.67 Result Comment: (NOTE) In patients undergoing treatment with fondaparinux sodium injection 2.5 mg, once daily, the peak steady-state plasma concentration is, on average, 0.39 to 0.50 mg/L and is reached approximately 3 hours post-dose. In these patients, the minimum steady-state plasma concentration is 0.14 to 0.19 mg/L. In patients with symptomatic deep vein thrombosis and pulmonary embolism undergoing treatment with fondaparinux sodium injection 5 mg (body weight <50 kg), 7.5 mg (body weight 50 to 100 kg), and 10 mg (body weight >100 kg) once daily, the [id number] doses provide similar mean steady-state peaks and minimum plasma concentrations across all body weight categories. The mean peak steady-state plasma concentration is in the range of 1.20 to 1.26 mg/L. In these patients, the mean minimum steady-state plasma concentration is in the range of 0.46 to 0.62 mg/L. (Prescribing information for Arixtra from [employer], April 2010) Note: The fondaparinux assay is performed by an anti-Xa methodology and that comcomitant therapy with unfractionated or low molecular weight heparin could falsely elevate the fondaparinux levels. Performed By: #### FONDXA #### [facility] [address] [place], [place] [address] CONSULT Observed: 10/27/2017 Status: COMPLETED Source: [place] 12:49 PM [facility] REPOSITORY HNO ID: [id number] Author: Nomra Macias Service: Nephrology Author Type: Physician Type: Consults Filed: 10/27/2017 12:56 PM Note Text: CONSULT: NEPHROLOGY SERVICE SERVICE DATE: 10/26/2017 SERVICE TIME: 9:04 AM REASON FOR CONSULT: I am asked to see this patient in consultation for my opinion regarding [place]. My recommendations will be communicated by way of shared medical record. REQUESTING PHYSICIAN: Brenda Houston MD PRIMARY CARE PHYSICIAN: PEYTON ROGERS MD Subjective CHIEF COMPLAINT: [place] HPI: Ms. 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 She was recently admitted from 10/13-10/22 with alveolar hemorrhage, s/p PLEX on 10/16 and 10/18. CT of the abdomen showed extensive retroperitoneal hemorrhage with mass effect on the left kidney, and had embolization of L3 artery which was found to be bleeding, and reportedly got 4 units of PRBC at the OSH. She received IV contrast with this. She was also reported to be mildly hypotensive with decreasing urine output. Her baseline Cr is 1.2-1.5. UA shows 100 protein and large amount of Hg. She reportedly had IHD yesterday per Nephrology at the OSH. Nephrology was consulted for management of [place]. ? Duration (when): Appears at least 10 days ? Location (where): kidneys ? Severity (ex: creat 4.5, BP 200/100): Cr 2.84 ? Quality (ex: sharp, dull): N/A ? Context (ex: activity at onset or related to condition): contrast administration ? Timing (ex: continuous, intermittent): continuous ? Modifying factors (ex: medications, interventions): dialysis ? Associated signs AND symptoms (ex: edema, SOB): edema PAST MEDICAL HISTORY Diagnosis Date - (HFpEF) heart failure with preserved ejection fraction (HCC) 02/20/2016 HFpEF w last EF 50-55% On Torsemide, coreg, hydralazine and imdur at home No signs of acute exacerbation on admission Plan: -Continue home medications - Anasarca 11/29/2013 - Anemia 03/10/2015 Chronic microcytic anemia. 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 Thrombosis, and Diffuse Alveolar Hemorrhage. On Warfarin and PLEX (Twice Weekly)? Plan: -Warfarin 5mg qday-holding for planned EGD on 01/11 d/t supra therapeutic INR -Cont. PO Prednisone 10mg MWFS and 5mg TTS -Pantoprazole for GI PPx of Above -Apharesis was supposed to be yesterday, will contact plasmapheresis team on recommendations - Antiphospholipid syndrome (HCC) - Catastrophic Antiphospholipid antibody syndrome 11/09/2013 - Cholelithiasis 01/11/2017 Likely cause of recent pancreatitis. Plan: Per general surgery, no acute surgical intervention at this time. Will await results of EGD. If active gastritis, favor outpatient cholecystectomy. If no active gastritis on EGD, plan for cholecystectomy this admission. 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8 mL intravenously one time only for 1 dose. Disp: 0.8 mL Rfl: 0 Unknown at Unknown time diphenhydrAMINE (BENADRYL) 50 mg capsule Take 1 capsule by mouth every 6 hours as needed for Itching/Rash. Disp: Rfl: Unknown at Unknown time gabapentin (NEURONTIN) 100 mg capsule Take 1 capsule by mouth three times daily for 7 days. Disp: Rfl: Unknown at Unknown time predniSONE (DELTASONE) 20 mg tablet Take 4 tablets by mouth once daily for 8 days. Disp: 32 tablet Rfl: 0 Unknown at Unknown time ondansetron (ZOFRAN, HYDROCHLORIDE,) 8 mg tablet Take 8 mg by mouth every 8 hours as needed for Nausea/Vomiting. Disp: Rfl: Unknown at Unknown time pantoprazole DR (PROTONIX) 40 mg tablet Take 40 mg by mouth daily at bedtime. Disp: Rfl: Unknown at Unknown time sulfamethoxazole-trimethoprim (BACTRIM DS) 800-160 mg per tablet Take 1 tablet by mouth every Monday,Monday,Monday. Disp: 36 tablet Rfl: 3 Unknown at Unknown time fluticasone (FLONASE) 50 mcg/actuation nasal spray Use 1-2 Sprays in each nostril once daily as needed for Cold/Allergy Symptoms (starting in allergy season). Disp: Rfl: Unknown at Unknown time senna 8.6 mg tab Take 1 tablet by mouth twice daily as needed. Disp: 60 tablet Rfl: 0 Unknown at Unknown time Current hospital medications: senna 8.6 mg tab(s) (SENOKOT) 8.6 mg ORAL/FEEDING TUBE BID pantoprazole DR 40 mg tab(s) (PROTONIX) 40 mg ORAL DAILY (6 AM) ondansetron 8 mg tab(s) (ZOFRAN) 8 mg ORAL q 8 H PRN diphenhydrAMINE 50 mg (BENADRYL) 50 mg ORAL/FEEDING TUBE q 6 H PRN [START ON 10/27/2017] sulfamethoxazole-trimethoprim 400-80 mg 2 tablet (BACTRIM,SEPTRA) 2 tablet ORAL/FEEDING TUBE - predniSONE (DELTASONE) tab(s) 80 mg 80 mg ORAL/FEEDING TUBE DAILY gabapentin 100 mg cap(s) (NEURONTIN) 100 mg ORAL q 12 H hydrocortisone sodium succinate (PF) 100 mg injection (Solu- CORTEF) 100 mg INTRAVENOUS q 4 H PRN sevelamer carbonate 800 mg tab(s) (RENVELA) 800 mg ORAL TID w MEALS HYDROmorphone WAITER/WAITRESS CABIN CLASS 0.5 mg/mL in NaCl 0.9% 100 mL INTRAVENOUS CONTINUOUS diphenhydrAMINE 50 mg injection (BENADRYL) 50 mg INTRAVENOUS q 4 H PRN NaCl 0.9% iv infusion 5-30 mL/hr INTRAVENOUS CONTINUOUS iv contrast (radiology procedure) INTRAVENOUS DIRECTED PRN 0.9% NaCl 3-5 mL 3-5 mL INTRAVENOUS q 12 H insulin regular human injection (short acting) (NovoLIN R,HumuLIN R) SUBCUTANEOUS q 6 H insulin regular 250 units in NaCl 0.9% 250 mL iv infusion - ICU NOMOGRAM 0.5-30 Units/hr INTRAVENOUS CONTINUOUS insulin regular human iv bolus 2-10 Units 2-10 Units INTRAVENOUS PRN dextrose 50% in water 25-50 mL syringe 12.5-25 g INTRAVENOUS PRN dextrose 40 % 15 g 15 g ORAL PRN glucagon 1 mg injection (GLUCAGEN) 1 mg SUBCUTANEOUS PRN acetaminophen 650 mg tab(s) (TYLENOL) 650 mg ORAL/FEEDING TUBE q 6 H PRN acetaminophen 650 mg suppository (TYLENOL) 650 mg RECTAL q 6 H PRN ALLERGIES Allergen Reactions - Rhubarb Rash, Hives - Heparin Other: See Comments Per patient history of HIT - was on angiomax however then took l fondaparinux for bridging to coumadin. - Iv Contrast [Iodine] Other: See Comments shuts kidneys down per patient - Rituximab Other: See Comments Elevated cardiac enzymes REVIEW OF SYSTEMS: Constitutional: No fever and No chills Eyes: Reports chronic blurry vision, wears glasses Cardiovascular: No chest pain and No palpitations Respiratory: Reports dyspnea and cough Gastrointestinal: No abdominal pain, had some vomiting Genitourinary: Has zuniga, prior to that denies hematuria or dysuria Musculoskeletal: Chronic pain in groin Neurological: No headache and No seizures Endocrine: No polyphagia and reports thirst Hematologic: Retroperitoneal bleed Objective PHYSICAL EXAM: BP 144/71 Pulse 97 Temp 38.6 ?C (101.5 ?F) (Oral) Resp 13 Ht 160 cm (5' 3) Wt 114.3 kg (251 lb 15.8 oz) SpO2 97% BMI 44.64 kg/m2 Intake/Output Summary (Last 24 hours) at 10/26/17 0904 Last data filed at 10/26/17 0754 Gross per 24 hour Intake 501 ml Output 5 ml Net 496 ml Constitutional: No acute distress and Responsive Eyes: Conjunctiva clear and no scleral icterus Ear, Nose, and Throat: Oropharynx exam moist mucous membranes Neck: No jugular venous distension supple Cardiovascular: Regular ryhthm, tachycardic, S1 and S2, no rubs, or gallops. 2-3+ peripheral edema Respiratory: Mildly course breath sounds anteriorly, normal respiratory effort Abdomen: Soft, distended, positive bowel sounds Neurologic: No asterixis Psychiatric: Alert and oriented x self, place, time, and setting Normal mood/affect Vascular Access: Hemodialysis catheter location: Left Tunneled internal jugular. DATA: Diagnostic tests reviewed for today's visit: Most recent labs and imaging results. Recent Labs 10/26/17 0020 10/25/17 0500 10/24/17 2230 10/24/17 1355 10/24/17 0405 10/24/17 0030 10/23/17 0630 10/22/17 0412 10/21/17 0356 NA 125* 125* 128* 129* -- 130* < > 139 138 138 K 5.4* 5.5* 5.0 6.0* -- 5.9* < > 4.1 3.8 3.8 CHLOR 83* 85* 86* 89* -- 89* < > 97* 93* 93* CO2 20* 25 24 27 -- 26 < > 31 34* 30 BUN 63* 75* 77* 73* -- 69* < > 63* 63* 63* CREAT 2.84* 2.86* 2.77* 2.55* -- 2.05* < > 1.35 1.38* 1.48* GLUC 105* 97 149* 109* -- 154* < > 158* 96 113* ANION 22* 15 18 13 -- 15 < > 11 11 15 CA 8.0* 7.8* 7.6* 7.9* -- 7.8* < > 8.0* 8.5 8.9 P 8.4* 8.6* -- -- 7.8* -- -- -- 2.7 2.8 MG -- 2.1 -- -- 2.1 -- -- 2.0 2.1 2.1 < > = values in this interval not displayed. Recent Labs 10/26/17 0640 10/26/17 0020 10/25/17 1814 10/25/17 0853 WBC -- 21.82* 22.45* 19.99* HB 5.5* 6.6* 7.7* 6.7* HCT -- 19.3* 22.5* 19.1* PLT -- 44* 40* 87* Recent Labs 10/26/17 0020 10/22/17 0412 10/21/17 0356 INR 1.0 1.1 1.1 APTT 26.8 -- -- Recent Labs 10/24/17 0500 10/15/17 1223 10/13/17 1846 COLOR Straw* Yellow Red* CLARITY Hazy* Cloudy* Cloudy* UGLUC 150* Negative Negative UBILI Negative Negative 1+* UKET Negative Negative Negative SPGR 1.009 1.019 >1.030* UHB Large* 1+* 3+* UPH 9.0* 5.0 6.0 UPROT 100* 30* >=300* NITRITES Negative Negative Positive* LEUKEST Negative 1+* 2+* UWBC Negative 0-5 6-10* URBC Many* 3-5* >25* Recent Labs 10/26/17 0229 LACT 1.5 Recent Labs 10/26/17 0640 10/20/17 0415 06/09/17 1024 ALLA -- -- 156.0 -- 363.9* TRANSFERSAT -- -- 9* -- 12* B12 -- -- -- -- 646 HB 5.5* < > 8.9* < > -- < > = values in this interval not displayed. Recent Labs 10/26/17 0020 CA 8.0* P 8.4* ALB 3.2* No results for input(s): BUNRAT, BUNPR, BUNPO in the last 168 hours. No results for input(s): HEPSABQ in the last 1440 hours. Invalid input(s): HEPSABG Recent Labs 10/26/17 0020 10/25/17 0500 10/23/17 0630 TBILI 1.1 0.8 0.4 ALT 95* 106* 9 AST 63* 73* 14 ALKPHOS 54 44 34* No results for input(s): CK, CKMB, TROPT in the last 168 hours. No results for input(s): FK506 in the last 168 hours. No results for input(s): CSA in the last 168 hours. No results for input(s): RAPA in the last 168 hours. 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 She was recently admitted from 10/13-10/22 with alveolar hemorrhage, s/p PLEX on 10/16 and 10/18. CT of the abdomen showed extensive retroperitoneal hemorrhage with mass effect on the left kidney, and had embolization of L3 artery which was found to be bleeding, and reportedly got 4 units of PRBC at the OSH. She received IV contrast with this. She was also reported to be mildly hypotensive with decreasing urine output. Her baseline Cr is 1.2-1.5. She reportedly had IHD yesterday per Nephrology at the OSH. Nephrology was consulted for management of [place]. 1. [place] possibly secondary to contrast induced nephropathy versus ATN also on differential in setting of anemia with retroperitoneal bleed, versus vasculitis given history of DAH and hematuria/proteinuria Baseline Cr 1.2-1.5 Urine studies: UA shows 100 protein and large amount of Hg 2. Electrolytes: hyponatremia, hyperkalemia, hypochloremia, hyperphosphatemia 3. Volume status: hypervolemic 4. Acid-base: AGMA secondary to renal failure 5. Hyperphosphatemia: secondary to renal failure PLAN: - will assess hemodynamic status after patient returns from IR and decide on IHD if stable versus CRRT if hemodynamically unstable or actively bleeding - will examine urine sediment - please check C3 and C4 as well as ANCAs - consider bronchoscopy to rule out alveolar hemorrhage - Strict I/Os, daily weights - Renal diet - Dose Medications for eGFR<10 - Will discuss with staff SIGNATURE: Catherine Oh MD PATIENT NAME: Paloma Cannon DATE: October 26, 2017 TIME: 9:04 AM PAGER: [phone] Addendum Was started on CRRT last night with 3 K bath, Qd 2500 cc/hr, currently running well, UF at 100 cc/hr. Catherine Oh MD Fellow Nephrology and Hypertension Pager: [phone] October 27, 2017 9:18 AM Staff note: I have reviewed the consult note obtained and documented by the Fellow and I personally participated in the fernandes components. I have discussed the case and management of the patient's care. The following comments revise or confirm relevant fernandes components of the note. Patient is 27 year old female with antiphospholipid antibody syndrome, and chronic kidney disease who presents with retroperitoneal hemorrhage. Kidney disease - chronic stage 3 kidney disease due to history of renal vein thrombosis and ATN - acute tubular injury in the setting of hemorrhagic shock and contrast exposure - left kidney displaced on CT scan due to bleeding - started on dialysis at outside hospital - seen on continuous dialysis, orders confirmed Norma Macias MD October 27, 2017 PROGRESS Observed: 10/27/2017 Status: COMPLETED Source: [place] 12:30 PM [facility] REPOSITORY HNO ID: [id number] Author: Destinee Flores MD Service: Critical Care Author Type: Physician Type: Progress Notes Filed: 10/27/2017 1:23 PM Note Text: SERVICE DATE: 10/27/2017 SERVICE TIME: 12:30 PM MICU PROGRESS NOTE Admission Date: 10/25/2017 Hospital Day # 2 SUBJECTIVE Interval HPI: c/o severe right groin pain OBJECTIVE Vital Signs (last filed) Range in last 24h Temp: 36.4 ?C (97.5 ?F) (10/27/17 0800) Temp Min: 36.1 ?C (97 ?F) Max: 37 ?C (98.6 ?F) Pulse: 81 (10/27/17 0800) Pulse Min: 81 Max: 121 Resp: 16 (10/27/17 0800) Resp Min: 8 Max: 37 BP: 150/73 (10/27/17 0800) BP Min: 130/62 Max: 178/83 MAP Non Invasive (Mean Arterial Pressure): 102 (10/27/17 0800) MAP Non Invasive (Mean Arterial Pressure) Min: 89 Max: 125 No Data Recorded SpO2: 95 % (10/27/17 0800) SpO2 Min: 88 % Max: 100 % Pain Score: 4/10 (10/27/17 0400) Fluid Balance: Intake/Output Summary (Last 24 hours) at 10/27/17 0659 Last data filed at 10/27/17 0600 Gross per 24 hour Intake 1044 ml Output 1173 ml Net -129 ml Last Weight: 115.1 kg (253 lb 12 oz) (10/27/17 0500) Admit Weight: 112.2 kg (247 lb 5.7 oz) (10/25/17 2327) DIET NPO Lines, Drains, and Airways Line Peripheral 10/23/17 1235 Right Antecubital 22 Gauge 3 days Central Line Single Lumen 10/25/17 2314 Tunneled Left Chest 1 day Dialysis / Apheresis Double Lumen 10/25/17 2314 Admission to Hospital Left Chest 1 day Drain Indwelling Urinary Catheter 10/23/17 0520 Assessment Zuniga 4 days Vent/Oxygen: Supplemental Oxygen: Yes. FiO2 5LNC No Data Recorded Physical Examination Performed Oral Mucosa: Dry mucous membranes Eyes: PERRLA Neck: Unremarkable; No adenopathy or JVD Cardiovascular: Regular rhythm Respiratory: Clear to auscultation Abdomen: Firm and Positive bowel sounds, left flank TTP, right groin exquisitely TTP mostly near ostomy bag, no erythema, no induration appreciated Extremities: Edema- Yes 2+ BLE Peripheral Pulses- Present all extremities Skin: Abnormalities- Yes, multiple areas of petechaie Breakdown- No Neurologic: Awake, oriented, Alert, Follows commands and Moving all extremities Infusion Medications HYDROmorphone WAITER/WAITRESS CABIN CLASS 0.5 mg/mL NaCl 0.9% Last Rate: 30 mL/hr (10/27/17 0700) insulin regular Diagnostic tests reviewed today: Most recent labs and imaging results. PATIENT CHECKLIST ? Are restraints necessary: No ? Deep vein thrombosis prophylaxis administered? No. Contraindicated. ? Stress ulcer prophylaxis? Yes ? Nasogastric tube? No ? Zuniga catheter necessary? Yes ? Is central line essential? No ? Plan discussed with assigned RN? Yes ? Family updated within last 24 hours? Yes CARE COORDINATION: Patient Summary: 27 year old female with a PMHx significant for: - Anti-phospholipid syndrome c/b DVT/PE requiring extensive percutaneous thrombectomy of her IVC and lower extremity veins followed by b/l iliac venous stents and endograft into her IVC, on long-term anti-coagulation (recently changed to fondaparinux from coumadin on 10/13 admission) and IVC, plasmapheresis q2 weeks, prednisone 5mg daily - DAH - on cyclophosphamide and prednisone, has had 6 episodes of respiratory decline since 2013, last admission for hemoptysis on 10/13/17, on 2 L at night and with exertion - HIT - CKD 3, 2/2 renal vein thrombosis and contrast-induced nephropathy - HFpEF - HTN - Peripheral neuropathy - post-thrombotic syndrome Transferred from [facility] for ongoing L RP bleeding. Major Interval Events: 10/26: Transferred from [facility]. Hgb down to 5.5. CTA showing active extravasation, going to IR for further management. 10/27: new onset right groin pain Plan for Day: - CTA abdomen/pelvis - Trend CBC and transfuse as needed - Hold anticoagulation - Monitor respiratory status - CVVH ASSESSMENT AND PLAN Overview, Assessment AND Plan, all Hosp Problems Active Hospital Problems as of 10/27/2017 Noted - Resolved Diffuse pulmonary alveolar hemorrhage 11/09/2013 - Present Current Assessment AND Plan Assessment: not active DAH, recently admitted from 10/13-10/22 for it PLAN: - Restart cyclophosphamide 200mg daily per Dr. Alicea - Continue prednisone 80mg qd - CVVH HTN (hypertension) 10/08/2015 - Present Overview Mildly decreased systolic function, diastolic function indeterminate on 10/13/17 ECHO. Current Assessment AND Plan PLAN: - Hold home amlodipine CAPRICE (acute kidney injury) (HCC) 10/08/2015 - Present Overview CAPRICE on CKD III, 2/2 contrast, now requiring dialysis First HD at [facility] on 10/25 with tunneled dialysis catheter placement CT Abdomen/pelvis from 10/26 showed occlusion of B/L renal veins, outflow not appreciated- could be attributing to CAPRICE and CKD Current Assessment AND Plan Assessment: CAPRICE on CKDIII secondary to FABY, now on dialysis PLAN: - Nephrology following - CVVHD - Monitor I/Os - sevelamer TID 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 - Present Current Assessment AND Plan PLAN: - Avoid heparin and heparin-like products Peripheral neuropathy 04/14/2016 - Present Current Assessment AND Plan PLAN: - Continue neurontin Anti-phospholipid antibody syndrome (HCC) 10/25/2017 - Present Current Assessment AND Plan PLAN: - Plasmapheresis q2 weeks (Heme will arrange for PLEX Monday 10/30) - Continue prednisone 80mg daily - Hold anticoagulation until resolution of retroperitoneal bleed - Vascular med and hematology following, appreciate recs Retroperitoneal hematoma 10/26/2017 - Present Overview Retroperitoneal bleed: s/p 7 units PRBCs s/p IR emobolization of left L3 artery at [facility] on 10/23 IR embolization of left L2 and L3 arteries on 10/26 Current Assessment AND Plan Assessment: secondary to anticoagulation PLAN: - Monitor CBC and transfuse for Hgb<7 - Premedicate for transfusions - Hold anticoagulation - WAITER/WAITRESS CABIN CLASS pump with dilaudid for pain control of L sided pain related to RP bleed Right groin pain 10/27/2017 - Present Overview C/o acute pain this morning, access site for embolization at [facility], no erythema or induration appreciated on exam, exquisitely TTP Current Assessment AND Plan PLAN: - US of groin to assess arterial and venous flow - CT Abdomen/pelvis - Pedal pulse checks Q2 - Vascular med following, appreciate recs Plan of care discussed with: Patient and ICU Team SIGNATURE: Christine Walker PA-C PATIENT NAME: Paloma Cannon DATE: October 27, 2017 TIME: 12:30 PM PAGER/CONTACT #: [phone] DR. FRED STONE, SR. HOSPITAL STAFF PHYSICIAN NOTE OF PERSONAL INVOLVEMENT IN CARE I have reviewed the progress note obtained and documented by the nurse practitioner/physician child nutrition assistant and I personally participated in the fernandes components. I have discussed the case and management of the patient's care and reviewed records/data/labs/radiographs and concur with the physical exam. The following comments revise or confirm relevant fernandes components of the note. ? IMPRESSION:?This is a 27 yo F with above mentioned past medical history most notable for antiphospholipid syndrome with complications of multiple embolic events on chronic anticoagulation, cyclophosphamide and plasmapharesis who was recently admitted for DAH, acute respiratory failure requiring intubation and within a day of discharge presented with retroperitoneal bleed and acute kidney injury. She required embolization, however is still requiring transfusions, and dialysis for CAPRICE. 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 PLAN:? Hematology consult today Vascular ultrasound to rule out pseudoaneurysm Vascular medicine consult noted - When CrCl > 30ml/min we can resume fondaparinux however this maybe challenging given CAPRICE and need for dialysis Nephrology consult appreciated Started on ceftriaxone this AM for Moraxella catarrhalis pneumonia MICU ppx ? This patient has a high probability of sudden, clinically significant deterioration, which requires the highest level of physician preparedness to intervene urgently. I managed/supervised life or organ supporting interventions that required frequent physician assessment. I devoted my full attention to the direct care of this patient for the amount of time indicated below. Time I spent with family or surrogate(s) is included only if the patient was incapable of providing the necessary information or participating in medical decision making. Time devoted to teaching and to any procedures I billed separately is not included. ? Critical Care Documentation: The patient has the following organ/system impairment(s): Acute blood loss and hypoxia ? Time spent providing critical care services: 32 minutes. ? SIGNATURE: Destinee Flores MD [facility] PAGER:[phone] DATE of SERVICE: October 27, 2017 TIME of SERVICE: 8:[address] ABD/PEL WO IVCON Observed: 10/27/2017 Status: F Source: [place] 12:21 PM [facility] REPOSITORY * * *Final Report* * * DATE OF EXAM: Oct 27 2017 12:21PM [facility] [place] 0531 - CT ABD/PEL WO IVCON / PROCEDURE REASON: Severe right groin pain * * * * Physician Interpretation * * * * EXAMINATION: CT ABDOMEN AND PELVIS WITHOUT IV CONTRAST CLINICAL HISTORY: Antiphospholipid syndrome complicated by DVT/PE requiring extensive thrombectomy of the IVC and lower extremity veins followed by bilateral iliac venous stents and IVC endograft, on long-term anticoagulation. She is also status post surgically created groin AV fistulas in an attempt to maintain the patency of the iliac vein and IVC. Recent large left retroperitoneal hemorrhage status post coil embolization of the left L3 lumbar artery on 10/23/2017, subsequent re-embolization of L2 and L3 on 10/26/2017. Right-sided femoral access on 10/23, left-sided access on 10/26. She now has severe right groin pain. TECHNIQUE: Non-IV contrast imaging of the abdomen and pelvis was performed using standard technique, scanning from just above the dome of the diaphragm to the symphysis pubis. Unenhanced imaging is limited for the evaluation of some intra-abdominal and pelvic pathology. MQ: [id number] Contrast: IV: None Oral: None CT Radiation dose: Integrated Dose-length product (DLP) for this visit = 1205 mGy*cm. CT Dose Reduction Employed: Automated exposure control (AEC) COMPARISON: CTA of 10/26/2017, CT 10/23/2017. RESULT: Abdomen / Pelvis: Liver: Unremarkable. Biliary: S/p cholecystectomy. Spleen: No splenomegaly. Pancreas: Unremarkable. Adrenals: No mass. Left adrenal is displaced by the large left retroperitoneal hematoma. Kidneys: There are persistent nephrograms may relate to recent contrast and/or ATN. There is excreted contrast in the renal collecting systems. Left kidney is anteriorly and medially displaced by the large left retroperitoneal hematoma. GI Tract: No bowel dilation. Normal appendix. Lymph Nodes: No lymphadenopathy. Mesentery/peritoneum: Mild nonspecific mesenteric stranding is unchanged. There is trace perihepatic ascites. Retroperitoneum: Large left retroperitoneal hematoma, acute/subacute attenuating. This currently measures 18.7 x 14.7 cm (previously 18.9 x 14.6 cm (axial image 87). Unchanged size of the extraperitoneal perivesicular component measures 7.9 x 4.3 cm on axial image 137 (previously 7.8 x 4.2 cm). The craniocaudal dimension is 25.6 cm on coronal image 56 (previously 25.3 cm). No new hematoma is identified. Vasculature: There are vascular stents in the IVC extending into both common/external iliac veins. No aneurysmal dilation of the abdominal aorta. Unchanged prominent bilateral groin and body wall collaterals likely related to chronic central venous occlusion. There are embolization coil at the expected location of the left L2 and L3 lumbar arteries. Pelvis: The urinary bladder is decompressed by a Zuniga catheter with a small amount of postprocedural intraluminal gas. Bones/Soft Tissues: No acute abnormality. Bilateral flank and lower abdominal wall subcutaneous edema is unchanged. Lower thorax: Small left pleural effusion is unchanged. Interval worsened consolidative opacities in the right lower lobe. Left lower lobe atelectasis and diffuse groundglass opacification of both lungs is unchanged. IMPRESSION: GROSSLY STABLE SIZE OF LARGE, ACUTE/SUBACUTE LEFT RETROPERITONEAL HEMATOMA. NO NEW HEMATOMA IS IDENTIFIED. PERSISTENT NEPHROGRAMS POSSIBLY RELATED TO ATN OR REPORTED BILATERAL RENAL VEIN THROMBOSIS SEEN ON THE PRIOR CTA. UNCHANGED MARKED SUBCUTANEOUS EDEMA OF THE FLANKS AND LOWER ABDOMEN/PELVIS/LOWER EXTREMITIES, LARGE COLLATERALS, TRACE ASCITES, AND MILD MESENTERIC STRANDING, LIKELY SECONDARY TO THE PATIENT'S CHRONIC CENTRAL VENOUS THROMBOSIS. STABLE LEFT PLEURAL EFFUSION WITH ASSOCIATED ATELECTASIS. UNCHANGED GROUND GLASS OPACITIES IN BOTH LUNGS WHICH ARE NONSPECIFIC AND CAN BE SEEN WITH EDEMA, INFECTION, OR HEMORRHAGE. INTERVAL WORSENED RIGHT LOWER LOBE OPACITY WHICH COULD REPRESENT INCREASED ATELECTASIS/EDEMA WITH AN INFECTIOUS/INFLAMMATORY PROCESSES NOT EXCLUDED. Practice Support Specialist: MURTAZA Transcribe Date/Time: Oct 27 2017 12:41P Dictated by : SANCHEZ WHITE MD This examination was interpreted and the report reviewed and electronically signed by: LYDIA FARIA DO on Oct 27 2017 4:26PM EST [id number] PROGRESS Observed: 10/27/2017 Status: COMPLETED Source: [place] 12:12 PM [facility] REPOSITORY HNO ID: [id number] Author: Allyson Goodson (Ct) Service: Radiology Author Type: Clinical Title Clerk Automobile Type: Progress Notes Filed: 10/27/2017 12:12 PM Note Text: Radiology Service Progress Note PATIENT NAME: Paloma Cannon DATE OF SERVICE: October 27, 2017 TIME: 12:12 PM PATIENT IDENTITY VERIFICATION COMPLETED USING TWO (2) METHODS: Patient confirmed name verbally and ID band matches.. PATIENT GENDER DATA: Female. status: : No status: NO. PATIENT RELEVANT IMPLANT DATA REVIEWED: Yes RADIOLOGY DEPARTMENT: CT; Exam(s) Completed: Abdomen/Pelvis PERIPHERAL IV DATA: Not applicable SIGNED BY: ROXY Goodson October 27, 2017 12:12 PM CBC Collected: 10/27/2017 Status: F Source: [place] 11:35 AM [facility] REPOSITORY TYPE CODE TESTS RESULT OUT OF REFERENCE UNITS RANGE LAB WBC 3.70-11.00 k/uL WBC High 16.52 LAB RBC 3.90-5.20 m/uL Low RBC 2.33 LAB HGB 11.5-15.5 g/dL Low Hemoglobin 7.0 LAB HCT 36.0-46.0 % Low Hematocrit 19.9 LAB MCV 80.0-100.0 fL MCV 85.4 LAB MCH 26.0-34.0 pG MCH 30.0 LAB MCHC 30.5-36.0 g/dL MCHC 35.2 LAB RDWCV 11.5-15.0 % RDW-CV High 16.3 LAB PLTCT 150-400 k/uL Low Platelet Count 43 Result Comment: Result checked and verified No clot detected. LAB MPV 9.0-12.7 fL MPV 11.9 LAB ABSNUC <0.01 k/uL High Absolute nRBC 0.57 Performed By: #### CBC #### [facility] [address] [place], [place] [address] CONSULT PROG Observed: 10/27/2017 Status: COMPLETED Source: [place] 10:11 AM [facility] REPOSITORY HNO ID: [id number] Author: Morteza Smart Service: Vascular Medicine Author Type: Physician Type: Consult Progress Note Filed: 10/27/2017 3:39 PM Note Text: VASCMED CONSULT PROGRESS NOTE SERVICE DATE: 10/27/2017 SERVICE TIME: 10:12AM Subjective Follow Up Regarding: Retroperitoneal bleed and antiphospholipid syndrome ATTENDING NOTE: The patient is seen and examined. She did complain of right groin pain and therefore an ultrasound was ordered. The results are pending at this time. As noted below she has required multiple units of red blood cells. Her hemoglobin this morning remains quite low at 6.6 g. Her platelet count is 46,000. It would be difficult to resume anticoagulation at this time. We will continue to follow with you. I have asked our nurse practitioners to wrap her legs today. Waiting for the results of the ultrasound. Morteza Smart MD INTERVAL HPI and PERTINENT ROS: Underwent L2/L3 embolization yesterday Received 2 units of blood and 1 unit of platelets overnight Hgb 6.6-->6.6 Plt 46 Cr 2.56 (2.84) Feels better. Has some pain to R groin. No other signs of bleeding. Current Facility-Administered Medications: senna 8.6 mg tab(s) (SENOKOT) 8.6 mg ORAL/FEEDING TUBE BID pantoprazole DR 40 mg tab(s) (PROTONIX) 40 mg ORAL DAILY (6 AM) ondansetron 8 mg tab(s) (ZOFRAN) 8 mg ORAL q 8 H PRN diphenhydrAMINE 50 mg (BENADRYL) 50 mg ORAL/FEEDING TUBE q 6 H PRN sulfamethoxazole-trimethoprim 400-80 mg 2 tablet (BACTRIM,SEPTRA) 2 tablet ORAL/FEEDING TUBE -WE-FR predniSONE (DELTASONE) tab(s) 80 mg 80 mg ORAL/FEEDING TUBE DAILY gabapentin 100 mg cap(s) (NEURONTIN) 100 mg ORAL q 12 H hydrocortisone sodium succinate (PF) 100 mg injection (Solu- CORTEF) 100 mg INTRAVENOUS q 4 H PRN sevelamer carbonate 800 mg tab(s) (RENVELA) 800 mg ORAL TID w MEALS HYDROmorphone WAITER/WAITRESS CABIN CLASS 0.5 mg/mL in NaCl 0.9% 100 mL INTRAVENOUS CONTINUOUS diphenhydrAMINE 50 mg injection (BENADRYL) 50 mg INTRAVENOUS q 4 H PRN NaCl 0.9% iv infusion 5-30 mL/hr INTRAVENOUS CONTINUOUS prochlorperazine 5 mg injection (COMPAZINE) 5 mg INTRAVENOUS q 6 H PRN 0.9% NaCl 2-10 mL 2-10 mL INTRAVENOUS PRN sodium citrate 4% 3-6 mL catheter lock 3-6 mL INTRALUMINAL PRN phosphorus 500 mg tab(s) (K PHOS NEUTRAL) 500 mg ORAL/FEEDING TUBE PRN Or sodium phosphate 15 mmol in D5W 250 mL 15 mmol INTRAVENOUS PRN Or sodium phosphate 30 mmol in D5W 250 mL 30 mmol INTRAVENOUS PRN Or sodium phosphate 45 mmol in D5W 250 mL 45 mmol INTRAVENOUS PRN 0.9% NaCl 3-5 mL 3-5 mL INTRAVENOUS q 12 H insulin regular human injection (short acting) (NovoLIN R,HumuLIN R) SUBCUTANEOUS q 6 H insulin regular 250 units in NaCl 0.9% 250 mL iv infusion - ICU NOMOGRAM 0.5-30 Units/hr INTRAVENOUS CONTINUOUS insulin regular human iv bolus 2-10 Units 2-10 Units INTRAVENOUS PRN dextrose 50% in water 25-50 mL syringe 12.5-25 g INTRAVENOUS PRN dextrose 40 % 15 g 15 g ORAL PRN glucagon 1 mg injection (GLUCAGEN) 1 mg SUBCUTANEOUS PRN acetaminophen 650 mg tab(s) (TYLENOL) 650 mg ORAL/FEEDING TUBE q 6 H PRN And acetaminophen 650 mg suppository (TYLENOL) 650 mg RECTAL q 6 H PRN Objective PHYSICAL EXAM: BP 174/80 Pulse 90 Temp 36.4 ?C (97.5 ?F) (Axillary) Resp 18 Ht 160 cm (5' 3) Wt 115.1 kg (253 lb 12 oz) SpO2 95% BMI 44.95 kg/m2 US tech at bedside General Appearance: Less pale. Alert. Smiling Heart: RRR without murmur, gallop or rubs. Lungs: CTA=Bilat ant Abdomen: Abdomen soft, mildly tender w/ palpation Upper Extremities: Moderate edema b/l. Good capillary refill. Lower Extremities: Feet and toes warm. Moderate-improtant pitting edema. Good capillary refill Normal pulses for brachial, radial, dorsalis pedis pulses bilaterally. Skin: Ecchymoses on R arm. DATA: Diagnostic tests reviewed for today's visit: Most recent labs and imaging results. Component Latest Ref Rng AND Units 10/22/2017 10/22/2017 10/26/2017 10/26/2017 10/26/2017 10/27/2017 10/27/2017 4:12 AM 12:45 PM 12:20 AM 1:23 PM 8:20 PM 1:00 AM 6:30 AM WBC 3.70 - 11.00 k/uL 9.05 18.78 (H) 21.82 (H) 19.28 (H) 15.09 (H) 15.08 (H) 15.02 (H) RBC 3.90 - 5.20 m/uL 2.71 (L) 3.03 (L) 2.22 (L) 2.38 (L) 2.08 (L) 2.24 (L) 2.20 (L) Hemoglobin 11.5 - 15.5 g/dL 7.5 (L) 8.3 (L) 6.6 (L) 7.2 (L) 6.2 (L) 6.7 (L) 6.6 (L) Hematocrit 36.0 - 46.0 % 24.6 (L) 27.5 (L) 19.3 (L) 21.2 (L) 18.2 (L) 19.5 (L) 19.2 (L) MCV 80.0 - 100.0 fL 90.8 90.8 86.9 89.1 87.5 87.1 87.3 MCH 26.0 - 34.0 pG 27.7 27.4 29.7 30.3 29.8 29.9 30.0 MCHC 30.5 - 36.0 g/dL 30.5 30.2 (L) 34.2 34.0 34.1 34.4 34.4 RDW-CV 11.5 - 15.0 % 19.1 (H) 19.1 (H) 15.6 (H) 15.5 (H) 15.6 (H) 15.4 (H) 15.7 (H) Platelet Count 150 - 400 k/uL 163 223 44 (L) 68 (L) 54 (L) 47 (L) 46 (L) Component Latest Ref Rng AND Units 10/22/2017 10/23/2017 10/24/2017 10/24/2017 10/24/2017 10/26/2017 10/27/2017 12:30 AM 1:55 PM 10:30 PM Protein, Total 6.3 - 8.0 g/dL 5.1 (L) 4.9 (L) Albumin 3.9 - 4.9 g/dL 3.5 (L) 3.2 (L) Calcium 8.5 - 10.2 mg/dL 8.5 7.8 (L) 7.8 (L) 7.9 (L) 7.6 (L) 8.0 (L) 7.6 (L) Bilirubin, Total 0.2 - 1.3 mg/dL 0.4 1.1 Alkaline Phosphatase 32 - 117 U/L 38 54 AST 13 - 35 U/L 19 63 (H) Glucose 74 - 99 mg/dL 96 172 (H) 154 (H) 109 (H) 149 (H) 105 (H) 118 (H) BUN 7 - 21 mg/dL 63 (H) 66 (H) 69 (H) 73 (H) 77 (H) 63 (H) 58 (H) Creatinine 0.58 - 0.96 mg/dL 1.38 (H) 1.86 (H) 2.05 (H) 2.55 (H) 2.77 (H) 2.84 (H) 2.56 (H) Sodium 136 - 144 mmol/L 138 132 130 (L) 129 (L) 128 (L) 125 (L) 127 (L) Potassium 3.7 - 5.1 mmol/L 3.8 6.2 (HH) 5.9 (H) 6.0 (H) 5.0 5.4 (H) 5.4 (H) Chloride 97 - 105 mmol/L 93 (L) 90 (L) 89 (L) 89 (L) 86 (L) 83 (L) 87 (L) CO2 22 - 30 mmol/L 34 (H) 26 26 27 24 20 (L) 23 Anion Gap 9 - 18 mmol/L 11 16 15 13 18 22 (H) 17 ALT 7 - 38 U/L 13 95 (H) eGFR- 55 39 (L) 35 (L) 27 (L) 25 (L) 24 27 eGFR-All Other Races . 46 32 (L) 29 (L) 22 (L) 20 (L) 20 22 CTA ABD/PEL 10/27/2017 IMPRESSION: LARGE LEFT-SIDED RETROPERITONEAL HEMATOMA WITH A STREAK OF INCREASED DENSITY DESCRIBED ABOVE SUGGESTIVE OF ACTIVE BLEEDING, LIKELY SUPPLIED BY THE THE LEFT L2 LUMBAR ARTERY. STATUS POST BIFURCATED LOWER IVC AND BILATERAL ILIAC VEIN STENT GRAFT. ? THE IVC IS COMPLETELY OCCLUDED SEVERAL CENTIMETERS ABOVE THE CONFLUENCE OF ILIAC VEINS AND RECONSTITUTED AT THE LEVEL OF THE LIVER BY THE HEPATIC VEINS. ?BILATERAL RENAL VEINS APPEAR OCCLUDED WELL. ?VENOUS OUTFLOW OF THE KIDNEYS IS NOT READILY APPARENT. ?MULTIPLE SUBCUTANEOUS ANTERIOR ABDOMINAL WALL, LUMBAR VEIN AND AZYGOS VEIN COLLATERALS. Anasarca. LEFT GREATER THAN RIGHT LOWER LOBE LUNG ATELECTASIS AND SMALL LEFT PLEURAL EFFUSION. Embolization 10/26/2017 LEFT L1, L2 AND L3 LUMBAR COUNT VENOGRAPHY DEMONSTRATES NO ACTIVE EXTRAVASATION. ?HOWEVER GIVEN THE RECENT BLEEDING FROM LEFT L3 AND RECENT FINDING OF SUSPICIOUS ACTIVE BLEEDING IN THE REGION OF LEFT L2 ON CT ANGIOGRAPHY, DECISION WAS MADE TO PROCEED WITH EMPIRIC EMBOLIZATION OF LEFT L2 AND ADDITIONAL EMBOLIZATION OF LEFT L3 DESCRIBED ABOVE. Le venous DUS 10/24/2017 IMPRESSION Technically difficult exam due to patient's body habitus and edema. ? RIGHT SIDE - DEEP VEINS Technically limited study. Negative for acute deep vein thrombosis in vessels visualized. LEFT SIDE - DEEP VEINS Technically limited study. Negative for acute deep vein thrombosis in vessels visualized. ? 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 Andujar, Hematology). ? Recently discharged on 10/22 on fondaparinux 7.5mg daily ? _retroperitoneal bleeding w/ significant blood transfusion requirements (11 units) ? S/p embolization of the left L3 artery on 10/23, with gelfoam and coils?w/ incidental finding of a large lower extremity fistula, per vasc surgery in [place] surgically created, and no need for intervention S/p redo embolization L3 and embolization L2 on 10/26 Hgb is still low despite transfusions? _R groin question of a pseudoaneurysm ? Plan => Groin study to r/o PSA => Given the importance of the bleeding and blood products requirements, we would not consider resuming anticoagulation before at least 14 days after bleeding has ceased. Patient is still at very high risk of thrombosis. => Transfusions per primary. Please avoid platelets transfusion as much as possible => We recommend IPCD as DVT prophylaxis => One of our spiritual minister will come to wrap her legs today => Please avoid all heparin or heparin-related products SIGNATURE: Linnette Almendarez MD PATIENT NAME: Paloma Cannon DATE: October 27, 2017 TIME: 11:13 AM PAGER/CONTACT #: [phone] . CBC Collected: 10/27/2017 Status: F Source: [place] 6:30 AM [facility] REPOSITORY TYPE CODE TESTS RESULT OUT OF REFERENCE UNITS RANGE LAB WBC 3.70-11.00 k/uL WBC High 15.02 LAB RBC 3.90-5.20 m/uL Low RBC 2.20 LAB HGB 11.5-15.5 g/dL Low Hemoglobin 6.6 LAB HCT 36.0-46.0 % Low Hematocrit 19.2 LAB MCV 80.0-100.0 fL MCV 87.3 LAB MCH 26.0-34.0 pG MCH 30.0 LAB MCHC 30.5-36.0 g/dL MCHC 34.4 LAB RDWCV 11.5-15.0 % RDW-CV High 15.7 LAB PLTCT 150-400 k/uL Low Platelet Count 46 Result Comment: No clot detected. LAB MPV 9.0-12.7 fL MPV 12.5 LAB ABSNUC <0.01 k/uL High Absolute nRBC 0.57 Performed By: #### CBC #### [facility] [address] [place], [place] [address] HEMOGLOBIN Collected: 10/27/2017 Status: F Source: [place] 2:50 AM [facility] REPOSITORY TYPE CODE TESTS RESULT OUT OF REFERENCE UNITS RANGE LAB HGB 11.5-15.5 g/dL Low Hemoglobin 6.6 Performed By: #### HGB #### [facility] [address] [place], [place] [address] CBC Collected: 10/27/2017 Status: F Source: [place] 1:00 AM [facility] REPOSITORY TYPE CODE TESTS RESULT OUT OF REFERENCE UNITS RANGE LAB WBC 3.70-11.00 k/uL WBC High 15.08 LAB RBC 3.90-5.20 m/uL Low RBC 2.24 LAB HGB 11.5-15.5 g/dL Low Hemoglobin 6.7 LAB HCT 36.0-46.0 % Low Hematocrit 19.5 LAB MCV 80.0-100.0 fL MCV 87.1 LAB MCH 26.0-34.0 pG MCH 29.9 LAB MCHC 30.5-36.0 g/dL MCHC 34.4 LAB RDWCV 11.5-15.0 % RDW-CV High 15.4 LAB PLTCT 150-400 k/uL Low Platelet Count 47 Result Comment: No clot detected. LAB MPV 9.0-12.7 fL MPV 11.9 LAB ABSNUC <0.01 k/uL High Absolute nRBC 0.33 Performed By: #### CBC, BMP, MG1, PHOS #### [facility] [address] [place], [place] [address] BASIC METABOLIC PANL Collected: 10/27/2017 Status: F Source: [place] 1:00 [facility] REPOSITORY TYPE CODE TESTS RESULT OUT OF REFERENCE UNITS RANGE LAB GLU 74-99 mg/dL High Glucose 118 Result Comment: The [place] [employer] (ADA) provides guidance for cutoff values for fasting glucose and random glucose. The ADA defines fasting as no caloric intake for at least 8 hours. Fas ting plasma glucose results between 100 to 125 mg/dL indicate increased risk for diabetes (prediabetes). Fasting plasma glucose results greater than or equal to 126 mg/dL meet the criteria for diagnosis of diabetes. In the absence of unequivocal hyperglycemia, results should be confirmed by repeat testing. In a patient with classic symptoms of hyperglycemia or hyperglycemic crisis, random plasma glucose results greater than or equal to 200 mg/dL meet the criteria for diagnosis of diabetes. Reference: Standards of Medical Care in Diabetes 2016, [place] [employer] Association. Diabetes Care. 2016.39(Suppl 1). LAB BUN 7-21 mg/dL BUN High 58 LAB CRET 0.58-0.96 mg/dL Creatinine High 2.56 LAB NA 136-144 mmol/L Low Sodium 127 LAB K 3.7-5.1 mmol/L Potassium High 5.4 LAB CL 97-105 mmol/L Low Chloride 87 LAB CO2 22-30 mmol/L CO2 23 LAB AGAP 9-18 mmol/L Anion Gap 17 LAB CA 8.5-10.2 mg/dL Low Calcium, Total 7.6 LAB GFRAA eGFR- Amer. 27 LAB GFRNAA . eGFR-All Other Races 22 Result Comment: eGFR (Estimated GFR) Units of measure: mL/min/1.73 meters squared eGFR is derived from the reexpressed MDRD Study equation using the following parameters: serum creatinine, age, gender and race. The creatinine assay has been calibrated to be traceable to IDMS. An eGFR <60 mL/min/1.73m2 for >3 months is consistent with chronic kidney disease. Refer to KDOQI guidelines for clinical interpretation. In patients with unstable renal function, e.g. those with acute kidney injury, the eGFR may not accurately reflect actual GFR. Performed By: #### CBC, BMP, MG1, PHOS #### [facility] [address] [place] [id number] MAGNESIUM Collected: 10/27/2017 Status: F Source: [place] 1:00 [facility] REPOSITORY TYPE CODE TESTS RESULT OUT OF REFERENCE UNITS RANGE LAB MG 1.7-2.3 mg/dL Magnesium 2.1 Performed By: #### CBC, BMP, MG1, PHOS #### [facility] [address] [place], [place] [address] PHOSPHORUS Collected: 10/27/2017 Status: F Source: [place] 1:00 [facility] REPOSITORY TYPE CODE TESTS RESULT OUT OF REFERENCE UNITS RANGE LAB PHOS 2.7-4.8 mg/dL High Phosphorus 7.1 Performed By: #### CBC, BMP, MG1, PHOS #### [facility] [address] [place], [place] [address] PLAN OF CARE Observed: 10/26/2017 Status: COMPLETED Source: [place] 9:57 PM [facility] REPOSITORY HNO ID: [id number] Author: Daysi Kohli Service: Critical Care Author Type: Resident Type: Plan of Care Filed: 10/26/2017 10:00 PM Note Text: CT Ab/Pel (10/26/17): LARGE LEFT-SIDED RETROPERITONEAL HEMATOMA WITH A STREAK OF INCREASED DENSITY DESCRIBED ABOVE SUGGESTIVE OF ACTIVE BLEEDING, LIKELY SUPPLIED BY THE THE LEFT L2 LUMBAR ARTERY. STATUS POST BIFURCATED LOWER IVC AND BILATERAL ILIAC VEIN STENT GRAFT. ? THE IVC IS COMPLETELY OCCLUDED SEVERAL CENTIMETERS ABOVE THE CONFLUENCE OF ILIAC VEINS AND RECONSTITUTED AT THE LEVEL OF THE LIVER BY THE HEPATIC VEINS. ?BILATERAL RENAL VEINS APPEAR OCCLUDED WELL. ?VENOUS OUTFLOW OF THE KIDNEYS IS NOT READILY APPARENT. ?MULTIPLE SUBCUTANEOUS ANTERIOR ABDOMINAL WALL, LUMBAR VEIN AND AZYGOS VEIN COLLATERALS. Anasarca. LEFT GREATER THAN RIGHT LOWER LOBE LUNG ATELECTASIS AND SMALL LEFT PLEURAL EFFUSION. Spoke with Dr. Rosales about CT abdom/pel findings. IVC thrombus noted with likely extension to renal veins. Iliac vein stents noted. Collaterals noted and unknown chronicity of the thrombus. Given current bleeding, not a candidate for immediate therapy/AC at this time. Daysi Kohli DO CBC Collected: 10/26/2017 Status: F Source: [place] 8:20 PM [facility] REPOSITORY TYPE CODE TESTS RESULT OUT OF REFERENCE UNITS RANGE LAB WBC 3.70-11.00 k/uL WBC High 15.09 LAB RBC 3.90-5.20 m/uL Low RBC 2.08 LAB HGB 11.5-15.5 g/dL Low Hemoglobin 6.2 LAB HCT 36.0-46.0 % Low Hematocrit 18.2 LAB MCV 80.0-100.0 fL MCV 87.5 LAB MCH 26.0-34.0 pG MCH 29.8 LAB MCHC 30.5-36.0 g/dL MCHC 34.1 LAB RDWCV 11.5-15.0 % RDW-CV High 15.6 LAB PLTCT 150-400 k/uL Low Platelet Count 54 Result Comment: No clot detected. LAB MPV 9.0-12.7 fL MPV High 13.1 LAB ABSNUC <0.01 k/uL High Absolute nRBC 0.19 Performed By: #### CBC, MG1, PHOS #### [facility] [address], [place] [address] MAGNESIUM Collected: 10/26/2017 Status: F Source: [place] 8:20 PM [facility] REPOSITORY TYPE CODE TESTS RESULT OUT OF REFERENCE UNITS RANGE LAB MG 1.7-2.3 mg/dL Magnesium 2.1 Performed By: #### CBC, MG1, PHOS #### [facility] [address] [place], [place] [address] PHOSPHORUS Collected: 10/26/2017 Status: F Source: [place] 8:20 PM [facility] REPOSITORY TYPE CODE TESTS RESULT OUT OF REFERENCE UNITS RANGE LAB PHOS 2.7-4.8 mg/dL High Phosphorus 8.5 Performed By: #### CBC, MG1, PHOS #### [facility] [address] [place], [place] [address] BRIEF OP NOT Observed: 10/26/2017 Status: COMPLETED Source: [place] 5:59 PM [facility] REPOSITORY HNO ID: [id number] Author: Yong Rosales Service: Interventional Radiology Author Type: Physician Type: Brief Op Note Filed: 10/26/2017 6:01 PM Note Text: BRIEF OPERATIVE / PROCEDURE NOTE LOG ID: [id number] SURGERY/PROCEDURE DATE: 10/26/2017 INCISION/PROCEDURE START TIME: 3:58 PM INCISION CLOSE/PROCEDURE END TIME: 5:01 PM SURGEON(S)/PROCEDURALIST(S) AND PROFESSOR OF CHEMICAL ENGINEERING(S): Surgeon(s) and Role: * Yong Rosales - Primary No Additional Staff SURGERY/PROCEDURE(S): Visceral/lumbar arteriography and embaolization ANESTHESIA: Procedural Sedation FINDINGS: Left L1, L2 and L3 arteriography. No active bleeding. Recent CT suggested bleeding from left L2 - empiric embolization done left L2 branch with gelfoam slurry and coils. Additional coils were added to left L3 obove the previously placed coils. ESTIMATED BLOOD LOSS: minimal SPECIMENS: None COMPLICATIONS: None PRE-OP/PRE-PROCEDURE DIAGNOSIS: Retroperitoneal hematoma POST-OP/POST-PROCEDURE DIAGNOSIS: * No post-op diagnosis entered * same SIGNATURE: Yong Rosales MD PATIENT NAME: Paloma Cannon DATE: October 26, 2017 TIME: 5:59 PM PAGER/CONTACT #: [phone] IR VISCERAL EMBOLIZATION Observed: 10/26/2017 Status: F Source: [place] 5:01 PM [facility] REPOSITORY * * *Final Report* * * DATE OF EXAM: Oct 26 2017 5:01PM [facility] 0826 - IR VISCERAL EMBOLIZATION / PROCEDURE REASON: Retroperitoneal bleed * * * * Physician Interpretation * * * * PROCEDURE: ANGIOGRAPHY AND EMBOLIZATION HISTORY: 27-year-old female with a PMHx significant for:- Anti-phospholipid syndrome c/b DVT/PE requiring extensive percutaneous thrombectomy of her IVC and lower extremity veins followed by b/l iliac venous stents and endograft into her IVC, on long-term anti-coagulation (recently changed to fondaparinux from coumadin on 10/13 admission)?with bilateral surgically created groin AV fistulas to maintain patency of the iliac vein and IVC stents. Recent admission for left abdominal and left flank pain with imaging demonstrates extensive left retroperitoneal hemorrhage status post angiogram and embolization of left L3 lumbar artery branches, continues to drop in HandH and flank pain, concern for ongoing hemorrhage. CT angiogram done earlier demonstrates a focus of suspected active bleeding within a left flank hematoma. Most likely culprit is from the left L3 lumbar artery. Patient presents for angiography and possible embolization. Due to worsening renal function, every effort made to minimize contrast administration. CONSENT: Risks, benefits, treatment options, potential complications and personnel to be involved were discussed (including the risks of radiation exposure, contrast and anesthesia administration, and any equipment needed for the procedure to ensure best possible outcome) with the patient and all questions were answered and consent was obtained prior to procedure. MEDICATION RECONCILIATION: The patient's medications and allergies were reviewed in the electronic medical record and reconciled to the proposed procedure/treatment. DAXA-PROCEDURE DISCUSSION: The appropriate elements of the pre-procedure discussion, safety check list and sign-out were performed. TIME OUT: A time out was performed immediately prior to procedure start with the nursing, and interventional team, correctly identifying the name, date of , procedure, anatomy (including marking of site and side if applicable), patient position, procedure consent form, relevant diagnostic and radiology test results, antibiotic administration if applicable, safety precautions, and procedure-specific equipment needs. Start of procedure: 1558 End of procedure: 1701 Patient position: Supine Anesthesia: After establishing pulse oximetry, BP and EKG monitoring by the Radiology nurse, moderate sedation with Versed and Fentanyl was administered. Intra-service time (monitoring for moderate sedation): 85 minutes Patient monitoring: I personally supervised and directed an independent trained observer who assisted in monitoring the patient?s level of consciousness and physiological status throughout the procedure. Local anesthesia: 2 % lidocaine ANTIBIOTICS: None Antibiotic infusion start time: N/A ADDITIONAL MED: None CONTRAST DOSE: 69 cc of OMNIPAQUE 300 was injected into the arterial system during the procedure. IMAGE GUIDANCE: Fluoroscopic and sonographic guidance was used. The vessel could not be seen on ultrasound due to anasarca. Access was obtained under fluoroscopic guidance. A sonographic image of the left groin was obtained and placed into the permanent archive for documentation FLUOROSCOPIC RADIATION SUMMARY: Plane A, Air Kerma: 837.3 mGy Dose Area Product (DAP): 547309.0 mGy*cm2 Fluoro Time: 19:24 min:sec Radiation dose exceed 5 Gy: No If radiation dose exceeded 5 Gy, was counseling and instructional brochure provided: N/A ACCESS: Left common femoral artery ACCESS HEMOSTASIS: Angioseal. TECHNIQUE: The patient was prepped and draped using all elements of maximal sterile barrier technique (cap, mask, sterile gown, sterile gloves, a large sterile sheet, hand hygiene and cutaneous antisepsis), sterile ultrasound gel and sterile ultrasound probe covers. ... In order to minimize contrast load, no aortogram was done. Targeted angiography was done based upon findings of most recent CT angiogram and recent angiography. Local anesthetic was administered a small skin kai was made over the left groin. Access was obtained into the left common femoral artery with an 18-gauge needle under direct fluoroscopic guidance utilizing the existing iliac vein stent, femoral head and palpation. A Bentson wire is advanced under fluoroscopic guidance into the aorta followed by a 5 [place] vascular sheath which was attached to normal saline infusion. Of note no heparin was administered due to patient history of HIT. Left L1, L2 and L3 lumbar arteries were each selected with a Sos catheter followed by angiography. Additionally, right-sided L1 and L2 arteries were accounted and also each followed by limited angiography. Attempts were made to select the left L4 lumbar artery without success. RESULT: Due to anasarca the femoral artery cannot be visualized. The patient has an indwelling iliac vein stent. This assisted in fluoroscopic guided arterial puncture of the common femoral artery. Left L1 angiography demonstrates attenuation of the vessel and supply to the paraspinal muscles only. No extravasation is seen. No arteriovenous fistula or pseudoaneurysm seen. Left L2 angiography demonstrates standard anatomy with supply to the paraspinal muscles and abdominal wall. No extravasation is seen. However, given the patient's known previous bleeding from left L3 distribution and findings of recent CT suggesting left L2 vessels a possible source, decision was made to proceed with empiric embolization of this branch. Left L3 angiography demonstrates patency position coils. There is continued occlusion at the point of the cause however some collateral flow is seen without evidence of extravasation. No arteriovenous fistula or pseudoaneurysm is seen. However, since this vessel was shown to be bleeding in the past, decision was made to admit additional coils to this vessel. Angiography supports coil embolization of L2 and repeat coil embolization of L3. INTERVENTION: A Progreat microcatheter was advanced through the Sos catheter within the left L2 lumbar artery followed by angiography again demonstrating no active bleeding and no intravenous fistula or pseudoaneurysm. Gentle Gelfoam embolization was done with a small amount of Gelfoam slurry to the point of stagnation. Following clearing of the catheter coil embolization was done utilizing to terminate a 2 x 3 mm little traverse microcoils followed by a single 3 mm x 14 cm Feng microcoils. Postembolization angiography demonstrates satisfactory occlusion of the left L2 lumbar artery, leaving the paraspinal muscle branches intact. Using same microcatheter working coaxially through the host catheter, the left L2 lumbar artery was selected followed by angiography demonstrating some collateral supply to the L2 artery. An additional solitary 3 mm x 14 cm Feng microcoils was deployed just above the previously deployed coils. Post embolization angiography demonstrates satisfactory occlusion. Limited left femoral angiography through the sheath demonstrates satisfactory anatomy and puncture site for closure device deployment. Hemostasis was achieved with an Angio-Seal device. A sterile dressing was applied. The patient tolerated the procedure well. There were no significant complications and no other complications during the procedure. CONCLUSION: The patient was comfortable and was transferred to the ICU in stable condition. Estimated Blood Loss: Minimal Number and Type of Removed Specimens: 0: ATTENDING RADIOLOGIST: Yong Rosales M.D. PROFESSOR OF CHEMICAL ENGINEERING: None The procedure was performed by the: attending radiologist, without an child nutrition assistant. The attending radiologist performed the following procedural activities: Entire procedure IMPRESSION: LEFT L1, L2 AND L3 LUMBAR COUNT VENOGRAPHY DEMONSTRATES NO ACTIVE EXTRAVASATION. HOWEVER GIVEN THE RECENT BLEEDING FROM LEFT L3 AND RECENT FINDING OF SUSPICIOUS ACTIVE BLEEDING IN THE REGION OF LEFT L2 ON CT ANGIOGRAPHY, DECISION WAS MADE TO PROCEED WITH EMPIRIC EMBOLIZATION OF LEFT L2 AND ADDITIONAL EMBOLIZATION OF LEFT L3 DESCRIBED ABOVE. Practice Support Specialist: PSCB Transcribe Date/Time: Oct 27 2017 4:46A Dictated by : YONG ROSALES MD This examination was interpreted and the report reviewed and electronically signed by: YONG ROSALES MD on Oct 27 2017 5:07AM EST PT ED Observed: 10/26/2017 Status: COMPLETED Source: [place] 3:34 PM [facility] REPOSITORY HNO ID: [id number] Author: Anahi (Jeff) JEFF Castrejon Service: Nursing Author Type: Registered Nurse Type: Patient Education Filed: 10/26/2017 3:35 PM Note Text: AMBULATORY PATIENT EDUCATION TOPIC: visceral angiogram READINESS TO LEARN COGNITIVE ABILITY: Alert and oriented MOTIVATION TO LEARN: Eager FAMILY SUPPORT: Unable to assess - Family not present INSTRUCTION PROVIDED TO: Patient and Caregiver PATIENT LEARNS BEST BY: Multiple Methods FACTORS AFFECTING LEARNING: None PHYSICAL LIMITATIONS AFFECTING LEARNING: Critically ill LEARNING RESPONSE DIAGNOSIS: Retroperitoneal bleed METHOD OF INSTRUCTION: Verbal instruction PATIENT / FAMILY RESPONSE: Information received as demonstrated by interest and questions FOLLOW-UP PLAN: Complete - No need for follow-up SUPPLEMENTAL MATERIAL: None REFERRAL (RECOMMENDATION): None Electronically Signed By: ANAHI CASTREJON RN In Department: [facility] G060 FONDAPARINUX ASSAY Collected: 10/26/2017 Status: F Source: [place] 2:26 PM [facility] REPOSITORY TYPE CODE TESTS RESULT OUT OF REFERENCE UNITS RANGE LAB JEF 0.00 mg/L Fondaparinux High 0.94 Result Comment: (NOTE) In patients undergoing treatment with fondaparinux sodium injection 2.5 mg, once daily, the peak steady-state plasma concentration is, on average, 0.39 to 0.50 mg/L and is reached approximately 3 hours post-dose. In these patients, the minimum steady-state plasma concentration is 0.14 to 0.19 mg/L. In patients with symptomatic deep vein thrombosis and pulmonary embolism undergoing treatment with fondaparinux sodium injection 5 mg (body weight <50 kg), 7.5 mg (body weight 50 to 100 kg), and 10 mg (body weight >100 kg) once daily, the atme-fqiexv-udbboraf doses provide similar mean steady-state peaks and minimum plasma concentrations across all body weight categories. The mean peak steady-state plasma concentration is in the range of 1.20 to 1.26 mg/L. In these patients, the mean minimum steady-state plasma concentration is in the range of 0.46 to 0.62 mg/L. (Prescribing information for Arixtra from [employer], April 2010) Note: The fondaparinux assay is performed by an anti-Xa methodology and that comcomitant therapy with unfractionated or low molecular weight heparin could falsely elevate the fondaparinux levels. Performed By: #### FONDXA #### [facility] [place], [place] [address] CBC Collected: 10/26/2017 Status: F Source: [place] 1:23 [facility] REPOSITORY TYPE CODE TESTS RESULT OUT OF REFERENCE UNITS RANGE LAB WBC 3.70-11.00 k/uL WBC High 19.28 LAB RBC 3.90-5.20 m/uL Low RBC 2.38 LAB HGB 11.5-15.5 g/dL Low Hemoglobin 7.2 LAB HCT 36.0-46.0 % Low Hematocrit 21.2 LAB MCV 80.0-100.0 fL MCV 89.1 LAB MCH 26.0-34.0 pG MCH 30.3 LAB MCHC 30.5-36.0 g/dL MCHC 34.0 LAB RDWCV 11.5-15.0 % RDW-CV High 15.5 LAB PLTCT 150-400 k/uL Low Platelet Count 68 Result Comment: No clot detected. LAB MPV 9.0-12.7 fL MPV 12.4 LAB ABSNUC <0.01 k/uL High Absolute nRBC 0.26 Performed By: #### CBC #### [facility] [address] [place], [place] [address] PROGRESS Observed: 10/26/2017 Status: COMPLETED Source: [place] 12:39 PM [facility] REPOSITORY HNO ID: [id number] Author: Destinee Flores MD Service: Critical Care Author Type: Physician Type: Progress Notes Filed: 10/26/2017 3:27 PM Note Text: SERVICE DATE: 10/26/2017 SERVICE TIME: 12:39 PM MICU PROGRESS NOTE Admission Date: 10/25/2017 Hospital Day # 1 SUBJECTIVE Interval HPI: Worsened. Hgb down to 5.5, concerning for ongoing bleeding. OBJECTIVE Vital Signs (last filed) Range in last 24h Temp: 37 ?C (98.6 ?F) (10/26/17 0835) Temp Min: 36.4 ?C (97.5 ?F) Max: 37.1 ?C (98.7 ?F) Pulse: 104 (10/26/17 1200) Pulse Min: 94 Max: 126 Resp: 26 (10/26/17 1200) Resp Min: 8 Max: 35 BP: 161/79 (10/26/17 1200) BP Min: 124/67 Max: 163/77 MAP Non Invasive (Mean Arterial Pressure): 113 (10/26/17 1200) MAP Non Invasive (Mean Arterial Pressure) Min: 89 Max: 118 No Data Recorded SpO2: 98 % (10/26/17 1200) SpO2 Min: 87 % Max: 99 % Pain Score: 5/10 (10/26/17 1200) Fluid Balance: Intake/Output Summary (Last 24 hours) at 10/26/17 0659 Last data filed at 10/26/17 0600 Gross per 24 hour Intake 500 ml Output 5 ml Net 495 ml Last Weight: 114.3 kg (251 lb 15.8 oz) (10/26/17 0600) Admit Weight: 112.2 kg (247 lb 5.7 oz) (10/25/17 2327) DIET NPO Lines, Drains, and Airways Line Peripheral 10/23/17 1235 Right Antecubital 22 Gauge 2 days Central Line Single Lumen 10/25/17 2314 Tunneled Left Chest less than 1 day Dialysis / Apheresis Double Lumen 10/25/17 2314 Admission to Hospital Left Chest less than 1 day Drain Indwelling Urinary Catheter 10/23/17 0520 Assessment Zuniga 3 days Vent/Oxygen: Supplemental Oxygen: Yes. 5L NC. No Data Recorded Physical Examination Performed Oral Mucosa: Moist mucous membranes Eyes: PERRLA Neck: Unremarkable; No adenopathy or JVD Cardiovascular: Regular tachycardia Abdomen: edematous; L flank pain with palpation Extremities: Edema- Yes Peripheral Pulses- Present all extremities Capillary Refill- less than 3 seconds Skin: Abnormalities- No Breakdown- No Neurologic: Awake, oriented, Alert, Follows commands and Moving all extremities Infusion Medications HYDROmorphone WAITER/WAITRESS CABIN CLASS 0.5 mg/mL NaCl 0.9% Last Rate: 30 mL/hr (10/26/17 0700) insulin regular Diagnostic tests reviewed today: Most recent labs and imaging results. PATIENT CHECKLIST ? Are restraints necessary: No ? Deep vein thrombosis prophylaxis administered? No. Contraindicated. ? Stress ulcer prophylaxis? Yes ? Nasogastric tube? No ? Zuniga catheter necessary? Yes ? Is central line essential? Yes ? Plan discussed with assigned RN? Yes ? Family updated within last 24 hours? Yes CARE COORDINATION: Patient Summary: 27 year old female with a PMHx significant for: - Anti-phospholipid syndrome c/b DVT/PE requiring extensive percutaneous thrombectomy of her IVC and lower extremity veins followed by b/l iliac venous stents and endograft into her IVC, on long-term anti-coagulation (recently changed to fondaparinux from coumadin on 10/13 admission) and IVC, plasmapheresis q2 weeks, prednisone 5mg daily - DAH - on cyclophosphamide and prednisone, has had 6 episodes of respiratory decline since 2013, last admission for hemoptysis on 10/13/17, on 2 L at night and with exertion - HIT - CKD 3, 2/2 renal vein thrombosis and contrast-induced nephropathy - HFpEF - HTN - Peripheral neuropathy - post-thrombotic syndrome Transferred from [place] for ongoing L RP bleeding. Major Interval Events: New Events (last 24hrs): 10/26: Transferred from [place]. Hgb down to 5.5. CTA showing active extravasation, going to IR for further management. Plan for Day: - CTA abdomen/pelvis - IR if needed - Trend CBC and transfuse as needed - Hold anticoagulation - Monitor respiratory status - Possible IHD vs CVVHD - Appreciate IR, hematology, vascular medicine, nephrology recs ASSESSMENT AND PLAN Overview, Assessment AND Plan, all Hosp Problems Active Hospital Problems as of 10/26/2017 Noted - Resolved Very Severe Retroperitoneal hematoma 10/26/2017 - Present Overview Retroperitoneal bleed: s/p 7 units PRBCs s/p IR emobolization of left L3 artery at [facility]. Transferred 10/26 for further management. Current Assessment AND Plan Assessment: secondary to anticoagulation PLAN: - IR consulted - CTA abdomen/pelvis - IR embolization - Monitor CBC and transfuse as needed - Premedicate for transfusions - Hold anticoagulation - WAITER/WAITRESS CABIN CLASS pump with dilaudid for pain control of L sided pain related to RP bleed Severe CAPRICE (acute kidney injury) (HCC) 10/08/2015 - Present Overview CAPRICE on CKD III, 2/2 contrast, now requiring dialysis First HD at [facility] on 10/25 with tunneled dialysis catheter placement Current Assessment AND Plan Assessment: CAPRICE on CKDIII secondary to FABY, now on dialysis PLAN: - Nephrology consulted - IHD vs CVVHD - Monitor I/Os - sevelamer TID Moderate Diffuse pulmonary alveolar hemorrhage 11/09/2013 - Present Current Assessment AND Plan Assessment: not active DA, recent admission for it PLAN: - Cyclophosphamide on hold until 10/30, continue bactrim - Continue prednisone 80mg qd - Consult nephrology for volume removal Mild Peripheral neuropathy 04/14/2016 - Present Current Assessment AND Plan PLAN: - Continue neurontin HTN (hypertension) 10/08/2015 - Present Overview Mildly decreased systolic function, diastolic function indeterminate on 10/13/17 ECHO. Current Assessment AND Plan PLAN: - Hold home amlodipine 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 - Present Anti-phospholipid antibody syndrome (HCC) 10/25/2017 - Present Current Assessment AND Plan PLAN: - Plasmapheresis q2 weeks - Continue prednisone 80mg daily - Hold anticoagulation until resolution of retroperitoneal bleed - Consult to vascular medicine and hematology Plan of care discussed with: Patient, ICU Team, RN and Consultants: IR, vasc medicine, hematology, nephrology SIGNATURE: Mari Nova PA-C PATIENT NAME: Paloma Cannon DATE: October 26, 2017 TIME: 12:39 PM PAGER/CONTACT #: [phone] DR. FRED STONE, SR. HOSPITAL STAFF PHYSICIAN NOTE OF PERSONAL INVOLVEMENT IN CARE I have reviewed the progress note obtained and documented by the nurse practitioner/physician child nutrition assistant and I personally participated in the fernandes components. I have discussed the case and management of the patient's care and reviewed records/data/labs/radiographs and concur with the physical exam. The following comments revise or confirm relevant fernandes components of the note. ? IMPRESSION: This is a 27 yo F with above mentioned past medical history most notable for antiphospholipid syndrome with complications of multiple embolic events on chronic anticoagulation, cyclophosphamide and plasmapharesis who was recently admitted for DAH, acute respiratory failure requiring intubation and within a day of discharge presented with retroperitoneal bleed and acute kidney injury. She required embolization, however is still requiring transfusions, and dialysis for CAPRICE. Active issues: Acute blood loss anemia due to retroperitoneal bleed Acute on chronic kidney injury likely due to FABY - started on first session of dialysis 10/25 Hypoxemia Chronic DVT in common femoral vein ? PLAN: Vascular medicine and hematology consult to assist with further management of APLS IR consult to assess for continued bleeding - recommending CTA MICU ppx ? This patient has a high probability of sudden, clinically significant deterioration, which requires the highest level of physician preparedness to intervene urgently. I managed/supervised life or organ supporting interventions that required frequent physician assessment. I devoted my full attention to the direct care of this patient for the amount of time indicated below. Time I spent with family or surrogate(s) is included only if the patient was incapable of providing the necessary information or participating in medical decision making. Time devoted to teaching and to any procedures I billed separately is not included. ? Critical Care Documentation: The patient has the following organ/system impairment(s): Acute blood loss and Severe metabolic disorder ? Time spent providing critical care services: 38 minutes. ? SIGNATURE: Destinee Flores MD [facility] PAGER:[phone] DATE of SERVICE: October 26, 2017 TIME of SERVICE: 8:17 AM NUTRITION Observed: 10/26/2017 Status: COMPLETED Source: [place] 12:23 PM [facility] REPOSITORY [facility] ID: [id number] Author: Edel Guillen Service: NST-Nutrition Support Team Author Type: Registered Dietitian Type: Nutrition Filed: 10/26/2017 12:32 PM Note Text: NUTRITION THERAPY INITIAL ASSESSMENT SERVICE DATE: 10/26/2017 SERVICE TIME: 10:00 AM RECOMMENDED MALNUTRITION DIAGNOSIS: MILD PROTEIN-CALORIE MALNUTRITION In the context of Acute Illness or Injury based on: Insufficient Energy Intake: <75% for >7 days Fluid Accumulation due to Malnutrition Moderate to Severe Intervention: Advance diet as tolerated to Regular Will order Ensure Clear (pt preference) QID May need to supplement with EN if po intakes continues to be suboptimal (<75% est needs) Monitor and Evaluation: Goal: Meet >75% of estimated needs Discharge Nutrition Recommendations: To be determined Per HPI: Ms. Cannon is a 27 year old female with a PMHx significant for: - Anti-phospholipid syndrome c/b DVT/PE requiring extensive percutaneous thrombectomy of her IVC and lower extremity veins followed by b/l iliac venous stents and endograft into her IVC, on long-term anti-coagulation (recently changed to fondaparinux from coumadin on 10/13 admission) and IVC, plasmapheresis q2 weeks, prednisone 5mg daily - DAH - on cyclophosphamide and prednisone, has had 6 episodes of respiratory decline since 2013, last admission for hemoptysis on 10/13/17, on 2 L at night and with exertion - HIT - CKD 3, 2/2 renal vein thrombosis and contrast-induced nephropathy - HFpEF - HTN - Peripheral neuropathy - post-thrombotic syndrome ? Recent admission 10/13/17-10/23/17 for hemoptysis and SOB, requiring intubation, was transferred to ICU for management of DAH initially requiring pressors. Coumadin was held on admission, and she was started on prophylactic fondaparinux on 10/14. She received PLEX 10/16 and then was extubated. On 10/17, she had left-sided chest pain with increased oxygen requirement, concerning for PE, but no imaging was done as plan was to continue anticoagulation. Plex again on 10/18. ? She had bilateral US no showing acute DVT but + for chronic common femoral DVT. Neurology was consulted for left foot numbness with no intervention recommended. ?? She presented to [facility] ED on 10/23 due to severe stabbing left-sided abdominal pain radiating to left arm/leg. She had a CT abdomen that showed extensive left retroperitoneal hemorrhage with mass effect to the left kidney, and less extensive hemorrhage along the surface of the spleen and along the mesentery. She was transferred to [facility] as ICU at [facility] was full. Present Diet Order: NPO Nutritional Intake Prior to Admission: <75% estimated energy needs over the past 1 month(s) Last [facility] admit 10/13 poor appetite/intakes reported. Per d/w patient today, appetite has been down since. Frequent hospitalization over the past 3 months. *rhubarb allergy noted GI symptoms: anorexia, early satiety Abdominal Exam: abdomen is soft and distended Is the patient having any pain that is interfering with oral/enteral intake? No ANTHROPOMETRICS Height: 160 cm (5' 3) Admission Weight: 112.2 kg (247 lb 5.7 oz) Current Weight: 114.3 kg (251 lb 15.8 oz) Body mass index is 44.64 kg/(m2). Weight has increased due to fluid retension Last wts in Epic: 10/13/17 : 104 kg (229 lb 4.5 oz) 10/05/17 : 101.4 kg (223 lb 8 oz) 09/12/17 : 96.6 kg (213 lb) 08/21/17 : 92.7 kg (204 lb 6.4 oz) - Office visit 07/11/17 : 106.6 kg (235 lb) 04/29/17 : 114.5 kg (252 lb 6.8 oz) 02/10/17 : 105.3 kg (232 lb 2.3 oz) 01/04/17 : 117 kg (257 lb 15 oz) 10/18/2016 114.306 kg Orange body weight 52.3 kg Estimated kilocalorie needs: 4770-2572 kilocalories determined by 25-30 kcal/kg ideal body weight Estimated protein needs: 78-105 grams determined by 1.5-2.0 g/kg Orange weight Estimated fluid needs: per MD NUTRITION FOCUSED PHYSICAL EXAM: Unable to perform exam due to patient whole body edema, anasarca, will re-attempt during reassessment. Temperature Max in 24 hours: Temp (24hrs), Av.7 ?C (98 ?F), Min:36.4 ?C (97.5 ?F), Max:37.1 ?C (98.7 ?F) BP 161/79 Pulse 104 Temp 37 ?C (98.6 ?F) Resp 26 Ht 160 cm (5' 3) Wt 114.3 kg (251 lb 15.8 oz) SpO2 98% BMI 44.64 kg/m2 Recent Labs 10/26/17 0640 10/26/17 0020 10/25/17 0500 GLUC -- 105* -- 97 BUN -- 63* -- 75* CREAT -- 2.84* -- 2.86* NA -- 125* -- 125* K -- 5.4* -- 5.5* CHLOR -- 83* -- 85* CO2 -- 20* -- 25 ALB -- 3.2* -- 3.0* HB 5.5* 6.6* < > 7.0* HCT -- 19.3* < > 20.0* WBC -- 21.82* < > 21.88* P -- 8.4* -- 8.6* MG -- -- -- 2.1 < > = values in this interval not displayed. Potential Signs of Inflammation: leukocytosis, hyperglycemia, hypoalbuminemia and tachycardia, critical condition ALLERGIES Allergen Reactions - Rhubarb Rash, Hives - Heparin Other: See Comments Per patient history of HIT - was on angiomax however then took l fondaparinux for bridging to coumadin. - Iv Contrast [Iodine] Other: See Comments shuts kidneys down per patient - Rituximab Other: See Comments Elevated cardiac enzymes Current Facility-Administered Medications: senna 8.6 mg tab(s) (SENOKOT) 8.6 mg ORAL/FEEDING TUBE BID pantoprazole DR 40 mg tab(s) (PROTONIX) 40 mg ORAL DAILY (6 AM) ondansetron 8 mg tab(s) (ZOFRAN) 8 mg ORAL q 8 H PRN diphenhydrAMINE 50 mg (BENADRYL) 50 mg ORAL/FEEDING TUBE q 6 H PRN predniSONE (DELTASONE) tab(s) 80 mg 80 mg ORAL/FEEDING TUBE DAILY gabapentin 100 mg cap(s) (NEURONTIN) 100 mg ORAL q 12 H hydrocortisone sodium succinate (PF) 100 mg injection (Solu- CORTEF) 100 mg INTRAVENOUS q 4 H PRN sevelamer carbonate 800 mg tab(s) (RENVELA) 800 mg ORAL TID w MEALS HYDROmorphone WAITER/WAITRESS CABIN CLASS 0.5 mg/mL in NaCl 0.9% 100 mL INTRAVENOUS CONTINUOUS diphenhydrAMINE 50 mg injection (BENADRYL) 50 mg INTRAVENOUS q 4 H PRN NaCl 0.9% iv infusion 5-30 mL/hr INTRAVENOUS CONTINUOUS iv contrast (radiology procedure) INTRAVENOUS DIRECTED PRN prochlorperazine 5 mg injection (COMPAZINE) 5 mg INTRAVENOUS q 6 H PRN 0.9% NaCl 3-5 mL 3-5 mL INTRAVENOUS q 12 H insulin regular human injection (short acting) (NovoLIN R,HumuLIN R) SUBCUTANEOUS q 6 H insulin regular 250 units in NaCl 0.9% 250 mL iv infusion - ICU NOMOGRAM 0.5-30 Units/hr INTRAVENOUS CONTINUOUS insulin regular human iv bolus 2-10 Units 2-10 Units INTRAVENOUS PRN dextrose 50% in water 25-50 mL syringe 12.5-25 g INTRAVENOUS PRN dextrose 40 % 15 g 15 g ORAL PRN glucagon 1 mg injection (GLUCAGEN) 1 mg SUBCUTANEOUS PRN acetaminophen 650 mg tab(s) (TYLENOL) 650 mg ORAL/FEEDING TUBE q 6 H PRN And acetaminophen 650 mg suppository (TYLENOL) 650 mg RECTAL q 6 H PRN MNT Billing Type: Re-assess/15 min 3 units SIGNATURE: Edel Guillen, RD, LD, [facility] PATIENT NAME: Paloma Cannon DATE: October 26, 2017 TIME: 12:23 PM PAGER: [phone] HISTORY PHYSICAL Observed: 10/26/2017 Status: COMPLETED Source: [place] 10:58 AM [facility] REPOSITORY [facility] ID: [id number] Author: Fredi Dykes Service: Interventional Radiology Author Type: Resident Type: HANDP Filed: 10/26/2017 11:07 AM Note Text: PROCEDURAL SEDATION HISTORY AND PHYSICAL EXAM SERVICE DATE: 10/26/2017 SERVICE TIME: 0900 Subjective HPI: This is a 27 year old female who presents with a history of antiphospholipid antibody syndrome hypercoagulability, status post multiple central vein occlusion requiring reconstruction and stenting. ? Patient was recently discharged from hospital, developed acute onset left-sided flank pain. ?Patient returned to the hospital, noncontrast CT performed at outside institution demonstrated 24 cm left retroperitoneal Hematoma, transferred to [facility] for angiography by Dr. Gr which showed L3 lumbar arterial extravasation, embolized on 10/23/2017. The patient was transferred to [facility] for further management and pheresis, but has continued to have decreasing H/H even with transfusion of multiple units of blood products, and continued left flank pain. IR was consulted due to concern for active bleeding. Of note, patient has contrast induced nephropathy due to multiple recent angiograms. CONSENT: ?Risks, benefits, treatment options, potential PAST ANESTHESIA HISTORY: No history of adverse event PAST MEDICAL HISTORY Diagnosis Date - (HFpEF) heart failure with preserved ejection fraction (HCC) 02/20/2016 HFpEF w last EF 50-55% On Torsemide, coreg, hydralazine and imdur at home No signs of acute exacerbation on admission Plan: -Continue home medications - Anasarca 11/29/2013 - Anemia 03/10/2015 Chronic microcytic anemia. 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 Thrombosis, and Diffuse Alveolar Hemorrhage. On Warfarin and PLEX (Twice Weekly)? Plan: -Warfarin 5mg qday-holding for planned EGD on 01/11 d/t supra therapeutic INR -Cont. PO Prednisone 10mg MWFS and 5mg TTS -Pantoprazole for GI PPx of Above -Apharesis was supposed to be yesterday, will contact plasmapheresis team on recommendations - Antiphospholipid syndrome (HCC) - Catastrophic Antiphospholipid antibody syndrome 11/09/2013 - Cholelithiasis 01/11/2017 Likely cause of recent pancreatitis. Plan: Per general surgery, no acute surgical intervention at this time. Will await results of EGD. If active gastritis, favor outpatient cholecystectomy. If no active gastritis on EGD, plan for cholecystectomy this admission. 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 - PAST SURGICAL HISTORY OF Adenoidectomy - PICC LINE INSERT/CONSULT 11/29/2013 - PICC LINE INSERT/CONSULT 03/10/2015 - PICC LINE INSERT/CONSULT 02/20/2016 Prior to Admission medications as of 10/23/17 0602 Medication Sig Last Dose Taking diphenhydrAMINE (BENADRYL) 50 mg capsule Take 1 capsule by mouth every 6 hours as needed for Itching/Rash. Unknown at Unknown time gabapentin (NEURONTIN) 100 mg capsule Take 1 capsule by mouth three times daily for 7 days. Unknown at Unknown time predniSONE (DELTASONE) 20 mg tablet Take 4 tablets by mouth once daily for 8 days. Unknown at Unknown time ondansetron (ZOFRAN, HYDROCHLORIDE,) 8 mg tablet Take 8 mg by mouth every 8 hours as needed for Nausea/Vomiting. Unknown at Unknown time pantoprazole DR (PROTONIX) 40 mg tablet Take 40 mg by mouth daily at bedtime. Unknown at Unknown time sulfamethoxazole-trimethoprim (BACTRIM DS) 800-160 mg per tablet Take 1 tablet by mouth every Monday,Monday,Monday. Unknown at Unknown time fluticasone (FLONASE) 50 mcg/actuation nasal spray Use 1-2 Sprays in each nostril once daily as needed for Cold/Allergy Symptoms (starting in allergy season). Unknown at Unknown time senna 8.6 mg tab Take 1 tablet by mouth twice daily as needed. Unknown at Unknown time ALLERGIES Allergen Reactions - Rhubarb Rash, Hives - Heparin Other: See Comments Per patient history of HIT - was on angiomax however then took l fondaparinux for bridging to coumadin. - Iv Contrast [Iodine] Other: See Comments shuts kidneys down per patient - Rituximab Other: See Comments Elevated cardiac enzymes Objective PHYSICAL EXAM: The remainder of the physical exam is noncontributory. AIRWAY: Patent, uvula visualized, patient able to LUNGS: No increased work of breathing. No audible wheezing. CARDIAC: Deferred. Neuro: Patient fully AxO Abd: Soft, left abdomen and brenda flank/back are tender and sore to palpation Assessment/Plan ASA Class: III - multisystemic disease 27yo F with APS and hx of multiple bleeds s/p multiple embolizations, recently with L flank pain/RP hematoma from L3 lumbar artery bleed, embolized on 10/23, continues to have decreasing H/H and L flank pain. Provisional Diagnosis/Treatment Plan: continued bleed vs. Evolving RP hematoma - CTA stat - Will f/u to decide if angiography is warranted or not SIGNATURE: Fredi Dykes MD PATIENT NAME: Paloma Cannon DATE: October 26, 2017 TIME: 10:58 AM PAGER: [phone] NURSING PROG Observed: 10/26/2017 Status: COMPLETED Source: [place] 10:55 AM [facility] REPOSITORY O ID: [id number] Author: Lili Kelley (Rn) JEFF Juarez Service: (none) Author Type: Registered Nurse Type: Nursing Progress Note Filed: 10/26/2017 10:57 AM Note Text: Radiology Service Progress Note PATIENT NAME: Paloma Cannon DATE OF SERVICE: October 26, 2017 TIME: 10:55 AM PATIENT WEIGHT: 251 LBS PATIENT IDENTITY VERIFICATION COMPLETED USING TWO (2) METHODS: Patient confirmed name verbally and ID band matches.. PATIENT GENDER DATA: Female. status: : No status: NO. CONTRAST INDUCED NEPHROPATHY RISK FACTORS: Known Chronic Kidney Disease (CKD) CREATININE: Creatinine Date Value Ref Range Status 10/26/2017 2.84 (H) 0.58 - 0.96 mg/dL Final 10/25/2017 2.86 (H) 0.70 - 1.40 mg/dL Final 10/24/2017 2.77 (H) 0.70 - 1.40 mg/dL Final eGFR-All Other Races Date Value Ref Range Status 10/26/2017 20 . Final Comment: eGFR (Estimated GFR) Units of measure: mL/min/1.73 meters squared eGFR is derived from the reexpressed MDRD Study equation using the following parameters: serum creatinine, age, gender and race. The creatinine assay has been calibrated to be traceable to [facility]. An eGFR <60 mL/min/1.73m2 for >3 months is consistent with chronic kidney disease. Refer to KDOQI guidelines for clinical interpretation. In patients with unstable renal function, e.g. those with acute kidney injury, the eGFR may not accurately reflect actual GFR. eGFR- Date Value Ref Range Status 10/26/2017 24 Final P.O.C.T. RESULTS: N/A October 26, 2017 TREATMENT: No Hydration needed: End Stage Renal Disease, patient with set dialysis schedule. and Per [place] plan for possible dislysis today ALLERGIES: Reviewed and unchanged CONTRAST ALLERGY: NO. IV SITE: Inpatient - refer to LDA documentation IV SITE APPEARANCE: Clean,Dry and Intact SIGNED BY: Lili Juarez RN October 26, 2017 10:55 AM PROGRESS Observed: 10/26/2017 Status: COMPLETED Source: [place] 10:55 AM [facility] REPOSITORY O ID: [id number] Author: Allyson Goodson (Ct) Service: Radiology Author Type: Clinical Title Clerk Automobile Type: Progress Notes Filed: 10/26/2017 10:55 AM Note Text: Radiology Service Progress Note PATIENT NAME: Paloma Cannon DATE OF SERVICE: October 26, 2017 TIME: 10:55 AM PATIENT IDENTITY VERIFICATION COMPLETED USING TWO (2) METHODS: Patient confirmed name verbally and ID band matches.. PATIENT GENDER DATA: Female. status: : No status: NO. PATIENT RELEVANT IMPLANT DATA REVIEWED: Yes RADIOLOGY DEPARTMENT: CT; Exam(s) Completed: CTA Abdomen Pelvis PERIPHERAL IV DATA: Inpatient: see LDA documentation SIGNED BY: ROXY Goodson October 26, 2017 10:55 AM CTA ABD/PELV WO/W Observed: 10/26/2017 Status: F Source: [facility] 10:55 AM [facility] REPOSITORY * * *Final Report* * * DATE OF EXAM: Oct 26 2017 10:55AM [facility] 0467 - CTA ABD/PELV WO/W IVCON / PROCEDURE REASON: Retroperitoneal bleed * * * * Physician Interpretation * * * * CT ANGIOGRAM OF THE ABDOMEN, PELVIS HISTORY: 27-year-old female with a PMHx significant for:- Anti-phospholipid syndrome c/b DVT/PE requiring extensive percutaneous thrombectomy of her IVC and lower extremity veins followed by b/l iliac venous stents and endograft into her IVC, on long-term anti-coagulation (recently changed to fondaparinux from coumadin on 10/13 admission)?with bilateral surgically created groin AV fistulas to maintain patency of the iliac vein and IVC stents. Recent admission for left abdominal and left flank pain with imaging demonstrates extensive left retroperitoneal hemorrhage status post angiogram and embolization of left L3 lumbar artery branches, continues to drop in HandH and flank pain, concern for ongoing hemorrhage. TECHNIQUE: High-resolution contrast-enhanced helical CT of the abdomen and pelvis was performed, without contrast, timed to arterial phase, and timed to venous phase (three phases). 3-D processing was performed by the physician on an independent work station, with MIP and volume-rendering techniques. Total of 120 ml of Omnipaque 300 was injected Central IV during the examination. The study was performed without oral contrast. The patient tolerated the injection without complications. Dose-Length Product (DLP): 3844 mGy*cm. CT Dose Reduction Employed: Automated exposure control (AEC) RESULT: COMPARISON: CT abdomen and pelvis without contrast 10/23/2017. Vascular findings: The abdominal aorta, bilateral common, internal and external iliac arteries are all widely patent without evidence of stenosis or aneurysm. Bilateral common femoral arteries and origins of the deep and superficial femoral arteries are patent without evidence of stenosis. Surgically created bilateral groin arteriovenous fistula is present with early opacification of bilateral common femoral veins and bilateral common iliac veins. The patient is status post bilateral common iliac vein and distal IVC stent grafts placement. The lateral iliac limbs in the very distal inferior vena cava are patent however, there is complete thrombotic occlusion of the IVC above the confluence of bilateral common iliac veins extending to the confluence of the hepatic veins. The hepatic veins are patent and the suprahepatic IVC is patent into the right atrium. Bilateral renal veins appear to be occluded. Venous drainage of bilateral kidneys is not clearly delineated on the CT scan. Drainage of the lower half of the body is via multiple dilated subcutaneous groin and suprapubic anterior abdominal wall collaterals and also via several markedly dilated sacral and lumbar veins, predominantly on the right side and via dilated paraspinal veins. The azygos and hemiazygos veins are dilated, providing collateral drainage. The celiac, superior mesenteric and inferior mesenteric as well as bilateral single renal arteries are all patent without evidence of stenosis or aneurysm. Superior mesenteric, splenic, and portal veins are patent. NONVASCULAR FINDINGS: There is a large left-sided retroperitoneal hematoma of predominantly increased density consistent with acute to subacute hematoma measuring 20 x 12 cm in cross-sectional diameter and 25 cm in the cephalocaudal dimension causing significant displacement of the left kidney and colon anteromedially. Within the mid medial aspect of the hematoma there is a streak of higher density suggesting extravasation at about the level of the L3 vertebral body seen on series 8 images 326 08/12/1947. Recently placed coils within the left L3 lumbar artery is seen. The CT scan suggests a source of bleeding possibly from the left L2 lumbar artery. Images through lung bases demonstrates diffuse groundglass hazy opacification of the lungs, bilateral lower lobe atelectasis, worse on the left side and a small left pleural effusion. Liver, pancreas, spleen, bilateral adrenal glands, right kidney, and left kidney are unremarkable aside from anterior medial displacement of the left kidney as described above. Status post cholecystectomy. There is partial opacification of the colon from prior contrast administration. There is no evidence of bowel obstruction. There is diverticulosis without evidence of diverticulitis. There is anterior and medial displacement of the descending and sigmoid colon. There are no enlarged lymph nodes. Aside from the previously described large left retroperitoneal hematoma, there is a small amount of perihepatic and pelvic ascites. There is diffuse subcutaneous edema. Visualized bony structures are unremarkable. IMPRESSION: LARGE LEFT-SIDED RETROPERITONEAL HEMATOMA WITH A STREAK OF INCREASED DENSITY DESCRIBED ABOVE SUGGESTIVE OF ACTIVE BLEEDING, LIKELY SUPPLIED BY THE THE LEFT L2 LUMBAR ARTERY. STATUS POST BIFURCATED LOWER IVC AND BILATERAL ILIAC VEIN STENT GRAFT. THE IVC IS COMPLETELY OCCLUDED SEVERAL CENTIMETERS ABOVE THE CONFLUENCE OF ILIAC VEINS AND RECONSTITUTED AT THE LEVEL OF THE LIVER BY THE HEPATIC VEINS. BILATERAL RENAL VEINS APPEAR OCCLUDED WELL. VENOUS OUTFLOW OF THE KIDNEYS IS NOT READILY APPARENT. MULTIPLE SUBCUTANEOUS ANTERIOR ABDOMINAL WALL, LUMBAR VEIN AND AZYGOS VEIN COLLATERALS. Anasarca. LEFT GREATER THAN RIGHT LOWER LOBE LUNG ATELECTASIS AND SMALL LEFT PLEURAL EFFUSION. URGENT RESULTS: Communicated with resident on-call Daysi ARAGON on 10/26/2017 at 8 p.m.. Practice Support Specialist: MURTAZA Transcribe Date/Time: Oct 26 2017 11:55A Dictated by : YONG ROSALES MD This examination was interpreted and the report reviewed and electronically signed by: YONG ROSALES MD on Oct 26 2017 7:59PM EST [id number] CASE MGT INIT Observed: 10/26/2017 Status: COMPLETED Source: [place] 9:40 AM [facility] [place] REPOSITORY HNO ID: [id number] Author: Lisseth Coto (Sw) Service: Social Work Author Type: Toolmaker Helper Type: Care Mgt Initial Assessment Filed: 10/26/2017 1:51 PM Note Text: CARE MANAGEMENT: ASSESSMENT AND DISCHARGE PLAN SERVICE DATE: 10/26/2017 SERVICE TIME: 9:15A.M. 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 No Advance Directive: Current Advance Directive: None Comb Tender Assisted with AD Completion: Yes Action: Education Provided Health Literacy: 1. How often do you need to have someone help you when you read instructions, pamphlets, or other written material from your doctor or pharmacy? Rarely - 2 2. How confident are you filling out medical forms by yourself? Extremely - 1 If Patient scores > 3 on either question, the following interventions were put into place: Patient did not score > 3 FUNCTIONAL AND COGNITIVE/BEHAVIORAL PRIOR TO ADMISSION: Baseline Mental Status: Alert AND Oriented, Person, Place , Time and Situation Functional Status: Needs Assistance Does Patient Currently Receive Any Community Services or Home Care? None Equipment Prior to Admission: Cane - Unknown type Oxygen 2 liters per minute Wheelchair Has the Patient Been in a Jail Facility in the Past 30 days? No SOCIAL: Living Arrangement: Home Lives With: Spouse Financial Resources: Disabled Primary Contact: Extended Emergency Contact Information Primary Emergency Contact: Morteza Cannon Coy Relation: Spouse Supportive: Yes Other Important Patient Contacts: None Caregiver Assessment: Caregiver is ready, willing and able to meet the patient's needs as recommended by the inter-professional team? TBD Patient's transition needs and plan for meeting these needs: TBD Does the patient have an acute stroke diagnosis, or has the patient had a stroke during this admission? No Medication Adherence: I am convinced of the importance of my prescription medication: Agree completely - 0 I worry that my prescription medication will do more harm than good to me Disagree completely - 0 I feel financially burdened by my ibr-hq-[id number] expenses for my prescription medication: Disagree completely - 0 Patient is categorized as low risk < 2 Are you interested in bedside delivery of your medications? Yes Food Concerns: In the Last Month, Have You had Trouble Getting Food? No trouble getting food During the Last Month, Have You Worried Whether Your Food Would Run Out Before You Had Enough Money to Buy More? No Is the Patient Psychosocially Complex? No ASSESSMENT AND PLAN: Medical Needs: 2 or more chronic diseases Psychosocial Needs: None FREEDOM OF CHOICE EXPLAINED: N/A POTENTIAL TRANSITION PLANS To Be Determined Pt is a 27-year old female, , and lives at home with a supportive . Pt has a PMHx significant for Anti-phospholipid syndrome c/b DVT/PE requiring extensive percutaneous thrombectomy of her IVC and lower extremity veins followed by b/l iliac venous stents and endograft into her IVC, on long-term anti-coagulation (recently changed to fondaparinux from coumadin on 10/13 admission) and IVC, plasmapheresis q2 weeks, prednisone 5mg daily. WINSTON met pt at the bedside, she was alert ans oriented per place, time, situation, person. Pt stated she lives in an apartment with her . Pt claims her apartment is on the first floor that makes it easy to move around in her wheelchair. Apart from wheelchair, pt also uses cane, and oxygen 2-liters at home. The Oxygen supplying company is [employer] . Pt;s medical goal is for bleeding to stop, and live a normal life. Pt needs are TBD. SIGNATURE: WINSTON Connors PATIENT NAME: Paloma Cannon DATE: October 26, 2017 TIME: 9:40 AM PAGER/CONTACT #: [phone] I have reviewed and agree with the above assessment. Pt admitted to MICU from OSH for ongoing L RP bleeding. Pt's Hgb down to 5.5, CTA showing active extravasation, plan on IR for further management if needed. Possible IHD vs CVVHD. Needs TBD. SW will continue to follow. SIGNATURE: Lisseth VELEZ, FLIPPING MACHINE OPERATOR PATIENT NAME: Paloma Cannon DATE: October 26, 2017 TIME: 9:40 AM PAGER/CONTACT #: [phone] CONSULT Observed: 10/26/2017 Status: COMPLETED Source: [place] 8:37 AM [facility] REPOSITORY HNO ID: [id number] Author: Aj Keenan Service: Hematology Author Type: Physician Type: Consults Filed: 10/27/2017 6:53 PM Note Text: [facility] Initial Consult Note PATIENT NAME: Paloma Cannon [facility] #: [id number] ATTENDING PHYSICIAN: Dr. Keenan DATE OF SERVICE: 10/26/2017 Room/Bed: [place] [address]/[place] [address] REASON FOR CONSULT: Antiphospholipid Antibody Syndrome Consulting PHYSICIAN: Dr. Houston HPI: Ms. Cannon is a 27 year old female with a PMHx significant for: Anti-phospholipid syndrome (Triple positive) c/b DVT/PE requiring extensive percutaneous thrombectomy of her IVC and lower extremity veins followed by b/l iliac venous stents and endograft into her IVC, on long-term anti-coagulation (recently changed to fondaparinux from coumadin on 10/13 admission) and IVC, plasmapheresis q2 weeks, prednisone 5mg daily DAH - on cyclophosphamide and prednisone, has had 6 episodes of respiratory decline since 2013, last admission for hemoptysis on 10/13/17, on 2 L at night and with exertion RONNIE CKD 3, 2/2 renal vein thrombosis and contrast-induced nephropathy HFpEF HTN Peripheral neuropathy ? Recent admission 10/13/17-10/23/17 for hemoptysis and SOB, requiring intubation, was transferred to ICU for management of DAH initially requiring pressors. Coumadin was held on admission, and she was started on prophylactic fondaparinux on 10/14. She received PLEX 10/16 and then was extubated. On 10/17, she had left-sided chest pain with increased oxygen requirement, concerning for PE, but no imaging was done as plan was to continue anticoagulation. PLEX again on 10/18. Patient was discharge on 10/23/2017 from the hospital on Fondaparinux 7.5mg and Prednisone. She presented to [facility] ED on 10/23 due to severe stabbing left-sided abdominal pain radiating to left arm/leg. She had a CT abdomen that showed extensive left retroperitoneal hemorrhage with mass effect to the left kidney, and less extensive hemorrhage along the surface of the spleen and along the mesentery. She was transferred to [facility] as ICU at [facility] was full. ? ICU course at [facility]: 10/23 Hb 4.8, received 2 units of pRBC - IR: urgent L RP angiogram, found to have bleeding from multiple foci of the left L3 artery, s/p embolization with gelfoam and coils w/ incidental finding of large lower extremity fistula, per vasc surgery surgically created, and no need for intervention at this time - Vascular surgery consulted, no need for intervention 10/24 -required 2 more units of pRBC -Nephrology consulted for oliguric CAPRICE: contrast induced nephropathy - LE venous ultrasound: negative for acute dvt bilaterally 10/25 - trialed on IV lasix and demedex diuretics which did not improve urine output - received 2 more units - tunneled dialysis port placement - first dialysis today ? Reportedly, received a total of 7 units of pRBC ? She was transferred to [facility] for further management. Patient is in MICU. Hematology team is consulted for the management of antiphospholipid antibody syndrome. ? ROS: No c/o weight loss, malaise, fevers, new/severe headaches, changes in vision/hearing, nosebleeds or other nasal problems, neck lumps/swelling/goiter/pain, cough/wheezing/SOB, chest pain, leg swelling, or palpitations. PREVIOUS MEDICAL HISTORY PAST MEDICAL HISTORY Diagnosis Date - (HFpEF) heart failure with preserved ejection fraction (HCC) 02/20/2016 HFpEF w last EF 50-55% On Torsemide, coreg, hydralazine and imdur at home No signs of acute exacerbation on admission Plan: -Continue home medications - Anasarca 11/29/2013 - Anemia 03/10/2015 Chronic microcytic anemia. 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 Thrombosis, and Diffuse Alveolar Hemorrhage. On Warfarin and PLEX (Twice Weekly)? Plan: -Warfarin 5mg qday-holding for planned EGD on 01/11 d/t supra therapeutic INR -Cont. PO Prednisone 10mg MWFS and 5mg TTS -Pantoprazole for GI PPx of Above -Apharesis was supposed to be yesterday, will contact plasmapheresis team on recommendations - Antiphospholipid syndrome (HCC) - Catastrophic Antiphospholipid antibody syndrome 11/09/2013 - Cholelithiasis 01/11/2017 Likely cause of recent pancreatitis. Plan: Per general surgery, no acute surgical intervention at this time. Will await results of EGD. If active gastritis, favor outpatient cholecystectomy. If no active gastritis on EGD, plan for cholecystectomy this admission. - CKD (chronic kidney disease) stage 3, GFR 30-59 ml/min 07/06/2016 Baseline SCr 1.5-1.7 Plan: -renally dose medications -avoid nephrotoxic agents - DVT (deep venous thrombosis) ([facility]) - Elevated CA-125 11/30/2013 244 - Essential hypertension 10/08/2015 Stable on home medications Plan: -continue to monitor on home meds - 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 Bivalirudin to Warfarin bridging - HIT (heparin-induced thrombocytopenia) ([facility]) - Nontoxic multinodular goiter - Obese - Obesity, Class III, BMI >= 40 (morbid obesity) E66.01 10/18/2016 - Peripheral neuropathy 04/14/2016 - Severe protein-calorie malnutrition (HCC) 12/29/2015 PREVIOUS SURGICAL HISTORY PAST SURGICAL HISTORY Procedure Laterality Date - PAST SURGICAL HISTORY OF 2012 IVC thrombectomy - PAST SURGICAL HISTORY OF 2012 b/l iliac v. 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 - Iv Contrast [Iodine] Other: See Comments shuts kidneys down per patient - Rituximab Other: See Comments Elevated cardiac enzymes MEDICATIONS Current hospital medications: senna 8.6 mg tab(s) (SENOKOT) 8.6 mg ORAL/FEEDING TUBE BID pantoprazole DR 40 mg tab(s) (PROTONIX) 40 mg ORAL DAILY (6 AM) ondansetron 8 mg tab(s) (ZOFRAN) 8 mg ORAL q 8 H PRN diphenhydrAMINE 50 mg (BENADRYL) 50 mg ORAL/FEEDING TUBE q 6 H PRN [START ON 10/27/2017] sulfamethoxazole-trimethoprim 400-80 mg 2 tablet (BACTRIM,SEPTRA) 2 tablet ORAL/FEEDING TUBE - predniSONE (DELTASONE) tab(s) 80 mg 80 mg ORAL/FEEDING TUBE DAILY gabapentin 100 mg cap(s) (NEURONTIN) 100 mg ORAL q 12 H hydrocortisone sodium succinate (PF) 100 mg injection (Solu- CORTEF) 100 mg INTRAVENOUS q 4 H PRN sevelamer carbonate 800 mg tab(s) (RENVELA) 800 mg ORAL TID w MEALS HYDROmorphone WAITER/WAITRESS CABIN CLASS 0.5 mg/mL in NaCl 0.9% 100 mL INTRAVENOUS CONTINUOUS diphenhydrAMINE 50 mg injection (BENADRYL) 50 mg INTRAVENOUS q 4 H PRN NaCl 0.9% iv infusion 5-30 mL/hr INTRAVENOUS CONTINUOUS 0.9% NaCl 3-5 mL 3-5 mL INTRAVENOUS q 12 H insulin regular human injection (short acting) (NovoLIN R,HumuLIN R) SUBCUTANEOUS q 6 H insulin regular 250 units in NaCl 0.9% 250 mL iv infusion - ICU NOMOGRAM 0.5-30 Units/hr INTRAVENOUS CONTINUOUS insulin regular human iv bolus 2-10 Units 2-10 Units INTRAVENOUS PRN dextrose 50% in water 25-50 mL syringe 12.5-25 g INTRAVENOUS PRN dextrose 40 % 15 g 15 g ORAL PRN glucagon 1 mg injection (GLUCAGEN) 1 mg SUBCUTANEOUS PRN acetaminophen 650 mg tab(s) (TYLENOL) 650 mg ORAL/FEEDING TUBE q 6 H PRN acetaminophen 650 mg suppository (TYLENOL) 650 mg RECTAL q 6 H PRN FAMILY HISTORY FAMILY HISTORY Problem Relation Age of Onset - Breast Cancer Mother spine BRCA neg - Ovarian cyst [OTHER] Mother - ovarian cyst [OTHER] Sister - Thyroid No Family History SOCIAL HISTORY Social History Marital status: Spouse name: Years of education: Number of children: Occupational History 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 Social History Main Topics Smoking status: Never Smoker Smokeless status: Never Used Alcohol use: No Drug use: No Sexual activity: Not Currently PHYSICAL EXAMINATION: ECOG Status: 1 Temp (24hrs), Av ?C (98.6 ?F), Min:36.4 ?C (97.5 ?F), Max:38.6 ?C (101.5 ?F) 10/26/17 0500 10/26/17 0600 10/26/17 0700 10/26/17 0820 BP: 151/72 144/66 144/71 Pulse: 103 108 97 Resp: 23 21 13 Temp: 38.6 ?C (101.5 ?F) TempSrc: Oral SpO2: 97% 97% 97% Weight: 114.3 kg (251 lb 15.8 oz) Height: Intake/Output Summary (Last 24 hours) at 10/26/17 0838 Last data filed at 10/26/17 0754 Gross per 24 hour Intake 501 ml Output 5 ml Net 496 ml General: Alert, NAD.On Nasal canula 02. HEENT: Grossly PERRLA, EOMI, anicteric Heart/CV: Grossly RRR Lungs/Resp/Chest: Normal chest wall movement. Abd: Grossly ND, no HSM, no other masses Extremities/Skin: No rashes appreciated LABS/IMAGING/PATHOLOGY Component Latest Ref Rng AND Units 10/25/2017 10/25/2017 10/26/2017 10/26/2017 10/26/2017 10/27/2017 10/27/2017 10/27/2017 8:53 AM 6:14 PM 12:20 AM 1:23 PM 8:20 PM 1:00 AM 6:30 AM 11:35 AM WBC 3.70 - 11.00 k/uL 19.99 (H) 22.45 (H) 21.82 (H) 19.28 (H) 15.09 (H) 15.08 (H) 15.02 (H) 16.52 (H) RBC 3.90 - 5.20 m/uL 2.28 (L) 2.65 (L) 2.22 (L) 2.38 (L) 2.08 (L) 2.24 (L) 2.20 (L) 2.33 (L) Hemoglobin 11.5 - 15.5 g/dL 6.7 (L) 7.7 (L) 6.6 (L) 7.2 (L) 6.2 (L) 6.7 (L) 6.6 (L) 7.0 (L) Hematocrit 36.0 - 46.0 % 19.1 (L) 22.5 (L) 19.3 (L) 21.2 (L) 18.2 (L) 19.5 (L) 19.2 (L) 19.9 (L) MCV 80.0 - 100.0 fL 83.8 84.9 86.9 89.1 87.5 87.1 87.3 85.4 MCH 26.0 - 34.0 pG 29.4 29.1 29.7 30.3 29.8 29.9 30.0 30.0 MCHC 30.5 - 36.0 g/dL 35.1 34.2 34.2 34.0 34.1 34.4 34.4 35.2 RDW-CV 11.5 - 15.0 % 15.9 (H) 15.8 (H) 15.6 (H) 15.5 (H) 15.6 (H) 15.4 (H) 15.7 (H) 16.3 (H) Platelet Count 150 - 400 k/uL 87 (L) 40 (L) 44 (L) 68 (L) 54 (L) 47 (L) 46 (L) 43 (L) MPV 9.0 - 12.7 fL 10.9 <<DO NOT REPORT>> 13.0 (H) 12.4 13.1 (H) 11.9 12.5 11.9 Neut% % 93.0 Abs Neut (ANC) 1.45 - 7.50 k/uL 20.29 (H) Lymph% % 1.0 Abs Lymph 1.00 - 4.00 k/uL 0.22 (L) [place]% % 5.0 Abs [place] <0.87 k/uL 1.09 (H) Eosin% % 0.0 Abs Eosin <0.46 k/uL 0.00 Baso% % 0.0 Abs Baso <0.11 k/uL 0.00 NRBC 0 /100 WBC 1 (H) Absolute nRBC <0.01 k/uL 0.22 (H) 0.22 (H) 0.26 (H) 0.19 (H) 0.33 (H) 0.57 (H) 0.57 (H) ANC(includeSEG+BAND) k/uL 20.29 [place]% % 1.0 Anisocytosis Present Left Shift Present Ovalocytes Few Polychromasia Slight Platelet Estimate Platelet estimate decreased Diff Type Manual Diff Component Latest Ref Rng AND Units 10/26/2017 PT Sec 9.7 - 13.0 sec 10.5 PT INR 0.9 - 1.3 1.0 APTT 23.0 - 32.4 sec 26.8 Component Latest Ref Rng AND Units 10/16/2017 10/18/2017 10/20/2017 10/26/2017 Fondaparinux 0.00 mg/L 1.07 (H) 1.69 (H) 2.28 (H) 0.94 (H) A/P: 27 y/o female?with PMHx of Triple-positive Anti-phospholipid Syndrome diagnosed in 2013?(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 Recent admission 10/13/17-10/23/17 for hemoptysis and SOB, requiring intubation, was in MICU for management of DAH. Admitted to MICU again for extensive left retroperitoneal hemorrhage s/p IR guided intervention (initially on 10/23 at [facility] and 10/26 here at [facility]. # Antiphospholipid antibody syndrome Extensive left retroperitoneal hemorrhage likely secondary to Fondaparinux. Its an unfortunate case, she needs an anticoagulation for APS but bleeding episodes prohibit it. Her Fondaparinux assay from 10/26 is still high at 0.94. She is now CVVHD, that will to some extent will help in clearing Fondaparinux. She received a total of 11 units of pRBC and 2 units of platelets - Please obtain Fondaparinux assay today -Patient is scheduled for next plasma exchange on 10/30 (Monday). No need for urgent plasma exchange. Discussed case with Dr. Claudio (apheresis team). Will evaluate on Monday for plasma exchange. - Hold off on any anticoagulation for now. -Agree with Prednisone 80mg PO - Agree with starting cytoxan at 150mg - Transfuse for Hgb >7 and Plt > 30. Hematology team will follow. Pt discussed with Dr. Shlomo Christopher MD Fellow, Hematology and Medical Oncology Pager: [phone] STAFF ADDENDUM: I have reviewed the history, physical obtained and documented by the Fellow and I personally participated in all of the fernandes components. I have discussed the case and management of the patient's care with the Fellow. The following comments revise or confirm relevant fernandes components of the Fellow. 27 yowf, well-known to our service, with CAPS, PAH, readmitted now for new retroperitoneal bleed. She had been discharged 10/22 on short-term fondaparinux (Hx HIT) to be transitioned back to warfarin. Her INR was 1.0 on admission to [facility]. She had severe left flank/abdominal pain, and the CT showed extensive left retroperitoneal hemorrhage with mass effect to left kidney. Also less extensive hemorrhage present along the surface of the spleen and along mesentery. Angiography demonstrated lumbar arterial bleeding sites which were embolized with gelfoam. 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 Vascular surgery consulted--this had been created in 2013 and no intervention was needed. ? She received emergency transfusion (Hb 4.8)--hypotensive but did not require pressors or intubation. CAPRICE (oliguric) developed after the angiogram and dialysis begun. Patient then transferred to [facility]. Repeat embolization was necessary yesterday when her Hb again dropped. Of note is her fondaparinux anti-Xa level was markedly elevated (2.28) on 10/20 due to her increasing renal insufficiency. It went down to 0.94 yesterday after dialysis. ? She's been on low-dose prednisone; given pulse methylprednisolone during hospitalization 10 days ago for recurrent pulmonary hemorrhage. Plasma exchange is ongoing q2 weeks. Cyclophosphamide was tried recently but had to be stopped because of myelosuppression (but also bacteremic at the time). It was restarted at a lower dose, and she says she felt her respiratory status was much better when she was on it, and she had less pulmonary bleeding. She has chronic thrombocytopenia which fluctuates with her acute bleeding episodes and numerous hospitalizations. Of note, rituximab was given in 2013. She only received 2 doses and then had a possible OR. 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 ? Will recheck the fondaparinux level which has likely come down further. Okay to restart cyclophosphamide, plasmapheresis as scheduled. Will follow. ? [place] [id number] CONSULT Observed: 10/26/2017 Status: COMPLETED Source: [place] 7:38 AM [facility] REPOSITORY HNO ID: [id number] Author: Morteza Smart Service: Vascular Medicine Author Type: Physician Type: Consults Filed: 10/27/2017 11:35 AM Note Text: VASCULAR MEDICINE INITIAL CONSULT SERVICE DATE: 10/26/2017 SERVICE TIME: 7:38am Requesting Provider: Dr. Aline Engle Opinion/advice regarding: anticoagulation ATTENDING NOTE: The patient was seen yesterday on the way to interventional radiology for continued bleeding. Obviously we have to hold anticoagulation at this time. We will continue to follow her on a daily basis with you and recommend when anticoagulation can be resumed. She is at risk for thrombosis but currently obviously bleeding is a concern. Following with you.. 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 Andujar, Hematology). ? -Post phlebitic syndrome -remote HIT -HTN -Heart failure w/ preserved ejection fraction -CKD -anemia -Peripheral neuropathy -s/p C. Diff. infection 08/2017 -obesity Admitted 09/29-10/05 for SOB, hypoxemia, hemoptysis. Warfarin was initially held d/t concern for diffuse alveolar hemorrhage and she was placed on fondaparinux for DVT prophylaxis. Was discharged on prophylactic fondaparinux with a subtherapeutic INR with close follow-up by vascular med Admitted 10/13-10/22 for diffuse alveolar hemorrhage. Intubated 10/13-10/16. Had PLEX and solumedrol. Improved gradually. B/L LE venous DUS US did not show any acute DVT. She was discharged on full dose fondaparinux (7.5mg daily) on 10/15. Was comfortable on room air without further episodes of hemoptysis. H/H was down trending, but still >8. Readmitted 10/23 because of intense left-sided abdominal pain. Hgb 4.8. She had a CT abdomen done at outside hospital that showed extensive retroperitoneal Hemorrhage on the left with mass effect on the left kidney. Underwent urgent L RP angiogram and was found to have bleeding from multiple foci of the left L3 artery, s/p embolization with gelfoam and coils w/ incidental finding of large lower extremity fistula, per vasc surgery surgically created, and no need for intervention at this time. Hospital stay c/b FABY w/ CAPRICE - dialyzed once on 10/25. Had a tunneled dialysis port placed Received 7u PRBC and then transferred to [facility] for further management. Will receive two more units this morning Last dose of fondaparinux was on the evening of 10/22 PAST MEDICAL HISTORY Diagnosis Date - (HFpEF) heart failure with preserved ejection fraction (HCC) 02/20/2016 HFpEF w last EF 50-55% On Torsemide, coreg, hydralazine and imdur at home No signs of acute exacerbation on admission Plan: -Continue home medications - Anasarca 11/29/2013 - Anemia 03/10/2015 Chronic microcytic anemia. 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 Thrombosis, and Diffuse Alveolar Hemorrhage. On Warfarin and PLEX (Twice Weekly)? Plan: -Warfarin 5mg qday-holding for planned EGD on 01/11 d/t supra therapeutic INR -Cont. PO Prednisone 10mg MWFS and 5mg TTS -Pantoprazole for GI PPx of Above -Apharesis was supposed to be yesterday, will contact plasmapheresis team on recommendations - Antiphospholipid syndrome (HCC) - Catastrophic Antiphospholipid antibody syndrome 11/09/2013 - Cholelithiasis 01/11/2017 Likely cause of recent pancreatitis. Plan: Per general surgery, no acute surgical intervention at this time. Will await results of EGD. If active gastritis, favor outpatient cholecystectomy. If no active gastritis on EGD, plan for cholecystectomy this admission. 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 - PAST SURGICAL HISTORY OF Adenoidectomy - PICC LINE INSERT/CONSULT 11/29/2013 - PICC LINE INSERT/CONSULT 03/10/2015 - PICC LINE INSERT/CONSULT 02/20/2016 FAMILY HISTORY:? No VTE ?? SOCIAL HISTORY: Smoking: No Drink alcohol:?no :?no diphenhydrAMINE (BENADRYL) 50 mg capsule Take 1 capsule by mouth every 6 hours as needed for Itching/Rash. gabapentin (NEURONTIN) 100 mg capsule Take 1 capsule by mouth three times daily for 7 days. predniSONE (DELTASONE) 20 mg tablet Take 4 tablets by mouth once daily for 8 days. ondansetron (ZOFRAN, HYDROCHLORIDE,) 8 mg tablet Take 8 mg by mouth every 8 hours as needed for Nausea/Vomiting. pantoprazole DR (PROTONIX) 40 mg tablet Take 40 mg by mouth daily at bedtime. sulfamethoxazole-trimethoprim (BACTRIM DS) 800-160 mg per tablet Take 1 tablet by mouth every Monday,Monday,Monday. fluticasone (FLONASE) 50 mcg/actuation nasal spray Use 1-2 Sprays in each nostril once daily as needed for Cold/Allergy Symptoms (starting in allergy season). senna 8.6 mg tab Take 1 tablet by mouth twice daily as needed. Current Facility-Administered Medications: senna 8.6 mg tab(s) (SENOKOT) 8.6 mg ORAL/FEEDING TUBE BID pantoprazole DR 40 mg tab(s) (PROTONIX) 40 mg ORAL DAILY (6 AM) ondansetron 8 mg tab(s) (ZOFRAN) 8 mg ORAL q 8 H PRN diphenhydrAMINE 50 mg (BENADRYL) 50 mg ORAL/FEEDING TUBE q 6 H PRN predniSONE (DELTASONE) tab(s) 80 mg 80 mg ORAL/FEEDING TUBE DAILY gabapentin 100 mg cap(s) (NEURONTIN) 100 mg ORAL q 12 H hydrocortisone sodium succinate (PF) 100 mg injection (Solu- CORTEF) 100 mg INTRAVENOUS q 4 H PRN sevelamer carbonate 800 mg tab(s) (RENVELA) 800 mg ORAL TID w MEALS HYDROmorphone WAITER/WAITRESS CABIN CLASS 0.5 mg/mL in NaCl 0.9% 100 mL INTRAVENOUS CONTINUOUS diphenhydrAMINE 50 mg injection (BENADRYL) 50 mg INTRAVENOUS q 4 H PRN NaCl 0.9% iv infusion 5-30 mL/hr INTRAVENOUS CONTINUOUS 0.9% NaCl 3-5 mL 3-5 mL INTRAVENOUS q 12 H insulin regular human injection (short acting) (NovoLIN R,HumuLIN R) SUBCUTANEOUS q 6 H insulin regular 250 units in NaCl 0.9% 250 mL iv infusion - ICU NOMOGRAM 0.5-30 Units/hr INTRAVENOUS CONTINUOUS insulin regular human iv bolus 2-10 Units 2-10 Units INTRAVENOUS PRN dextrose 50% in water 25-50 mL syringe 12.5-25 g INTRAVENOUS PRN dextrose 40 % 15 g 15 g ORAL PRN glucagon 1 mg injection (GLUCAGEN) 1 mg SUBCUTANEOUS PRN acetaminophen 650 mg tab(s) (TYLENOL) 650 mg ORAL/FEEDING TUBE q 6 H PRN And acetaminophen 650 mg suppository (TYLENOL) 650 mg RECTAL q 6 H PRN ALLERGIES Allergen Reactions - Rhubarb Rash, Hives - Heparin Other: See Comments Per patient history of HIT - was on angiomax however then took l fondaparinux for bridging to coumadin. - Iv Contrast [Iodine] Other: See Comments shuts kidneys down per patient - Rituximab Other: See Comments Elevated cardiac enzymes CANCER SCREENING QUESTIONS: N/A Objective REVIEW OF SYSTEMS: GENERAL: Fever: No Chills: No Night sweats: No Changes in weight: No NEUROLOGICAL: Headaches: No Seizures: No Passing out: No Numbness, tingling or sensation of pins and needles: No HEAD, EYES, EARS, NOSE, AND THROAT: Changes in hearing: No Changes in vision: No Nose bleeds: No CARDIOVASCULAR: Chest pain or pressure: No Palpitations: No Irregular heart rate: No RESPIRATORY: Cough: YES Wheezing: No Shortness of breath: YES Shortness of breath with exertion: No Coughing up blood: No GASTROINTESTINAL: Abdominal discomfort: YES Nausea: YES Vomiting: YES Diarrhea: No Constipation: No Difficulty swallowing: No Pain with swallowing: No Stomach pain after eating: No Passing blood with bowel movement: No Black tarry stool: No GENITOURINARY: Pain with urination: No Blood in urine: No SEVERITY OF ILLNESS COORDINATOR: Abnormal vaginal bleeding: N/A History of loss: N/A EXTREMITY: Edema (swelling): YES Pain with walking: No MUSCULOSKELETAL: Joint pain: N/A Joint swelling: N/A Back pain: N/A Muscle pain or ache: N/A SKIN: Rash: N/A Lesions: N/A Sores: N/A Ulcers: N/A Tenderness: N/A Skin cancer: N/A HEMATOLOGY: Easy bruising: N/A Blood transfusions: YES PHYSICAL EXAM: Vital Signs: BP 144/71 Pulse 97 Temp 36.5 ?C (97.7 ?F) (Oral) Resp 13 Ht 160 cm (5' 3) Wt 114.3 kg (251 lb 15.8 oz) SpO2 97% BMI 44.64 kg/m2 General Appearance: Very pale. Alert. HEENT: Anicteric sclera Heart: RRR without murmur, gallop or rubs. Lungs: CTA=Bilat ant Abdomen: Abdomen soft, tender w/ mild palpation Upper Extremities: Moderate edema b/l. Good capillary refill. Lower Extremities: Feet and toes warm. Moderate pitting edema. Good capillary refill Normal pulses for brachial, radial, dorsalis pedis pulses bilaterally. Skin: Ecchymoses on R arm. DATA: Diagnostic tests reviewed for today's visit: Most recent labs and imaging results. Component Latest Ref Rng AND Units 10/23/2017 10/23/2017 10/23/2017 10/23/2017 10/24/2017 10/24/2017 10/24/2017 10/24/2017 10/25/2017 10/25/201710/2510/25/2017 10/26/2017 6:30 AM 12:57 PM 5:30 PM 8:30 PM 12:20 AM 8:40 AM 12:00 PM 10:30 PM 5:00 AM 8:53 AM 6:14 PM WBC 3.70 - 11.00 k/uL 17.22 (H) 17.69 (H) 21.60 (H) 23.91 (H) 26.37 (H) 28.08 (H) 26.49 (H) 25.41 (H) 21.88 (H) 19.99 (H) 22.45 (H) 21.82 (H) RBC 3.90 - 5.20 m/uL 1.75 (L) 2.80 (L) 2.66 (L) 2.63 (L) 2.41 (L) 2.49 (L) 2.34 (L) 2.27 (L) 2.38 (L) 2.28 (L) 2.65 (L) 2.22 (L) Hemoglobin 11.5 - 15.5 g/dL 4.8 (LL) 8.1 (L) 7.5 (L) 7.5 (L) 6.9 (L) 7.2 (L) 6.8 (L) 6.7 (L) 7.0 (L) 6.7 (L) 7.7 (L) 6.6 (L) Hematocrit 36.0 - 46.0 % 15.6 (L) 24.2 (L) 23.0 (L) 22.9 (L) 20.7 (L) 21.5 (L) 20.1 (L) 19.3 (L) 20.0 (L) 19.1 (L) 22.5 (L) 19.3 (L) MCV 80.0 - 100.0 fL 89.1 86.4 86.5 87.1 85.9 86.3 85.9 85.0 84.0 83.8 84.9 86.9 MCH 26.0 - 34.0 pG 27.4 28.9 28.2 28.5 28.6 28.9 29.1 29.5 29.4 29.4 29.1 29.7 MCHC 30.5 - 36.0 g/dL 30.8 33.5 32.6 32.8 33.3 33.5 33.8 34.7 35.0 35.1 34.2 34.2 RDW-CV 11.5 - 15.0 % 19.8 (H) 16.8 (H) 17.2 (H) 17.5 (H) 17.3 (H) 16.3 (H) 16.2 (H) 16.0 (H) 15.8 (H) 15.9 (H) 15.8 (H) 15.6 (H) Platelet Count 150 - 400 k/uL 187 130 (L) 158 168 151 140 (L) 122 (L) 106 (L) 92 (L) 87 (L) 40 (L) 44 (L) Component Latest Ref Rng AND Units 10/20/2017 10/21/2017 10/22/2017 10/26/2017 Protein, Total 6.3 - 8.0 g/dL 5.7 (L) 5.9 (L) 5.1 (L) 4.9 (L) Albumin 3.9 - 4.9 g/dL 3.9 3.9 3.5 (L) 3.2 (L) Calcium 8.5 - 10.2 mg/dL 8.5 8.9 8.5 8.0 (L) Bilirubin, Total 0.2 - 1.3 mg/dL 0.4 0.4 0.4 1.1 Alkaline Phosphatase 32 - 117 U/L 44 45 38 54 AST 13 - 35 U/L 13 15 19 63 (H) Glucose 74 - 99 mg/dL 202 (H) 113 (H) 96 105 (H) BUN 7 - 21 mg/dL 53 (H) 63 (H) 63 (H) 63 (H) Creatinine 0.58 - 0.96 mg/dL 1.39 (H) 1.48 (H) 1.38 (H) 2.84 (H) Sodium 136 - 144 mmol/L 136 138 138 125 (L) Potassium 3.7 - 5.1 mmol/L 3.8 3.8 3.8 5.4 (H) Chloride 97 - 105 mmol/L 93 (L) 93 (L) 93 (L) 83 (L) CO2 22 - 30 mmol/L 30 30 34 (H) 20 (L) Anion Gap 9 - 18 mmol/L 13 15 11 22 (H) ALT 7 - 38 U/L 8 7 13 95 (H) eGFR- 55 51 55 24 eGFR-All Other Races . 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 Andujar, Hematology). ? Recently discharged on 10/22 on fondaparinux 7.5mg daily _retroperitoneal bleeding w/ significant blood transfusion requirements (9 units) S/p embolization of the left L3 artery, with gelfoam and coils w/ incidental finding of a large lower extremity fistula, per [facility] surgery in [place] surgically created, and no need for intervention Bleeding seems still ongoing H/H 5.5 this morning Plan => No indication for FFP at this moment. => No specific antidote for fondaparinux. Anyway, given the time elapsed since last shot of fondaparinux, anticoagulant reversal would likely not be efficacious. It is however not impossible that there is a small amount of fondaparinux in the blood given the half-life (17h) of the drug and the CAPRICE. => We recommend consulting Hematology => We recommend consulting IR to reassess possible re-intervention. => Given the importance of the bleeding and blood products requirements, we would not consider resuming anticoagulation before at least 14 days after bleeding has ceased. Patient is still at very high risk of thrombosis. => We recommend IPCD as DVT prophylaxis => Please avoid all heparin or heparin-related products SIGNATURE: Linnette Almendarez MD PATIENT NAME: Paloma Cannon DATE: October 26, 2017 TIME: 7:39 AM PAGER/CONTACT #: [phone] . HEMOGLOBIN Collected: 10/26/2017 Status: F Source: [place] 6:40 AM [facility] REPOSITORY TYPE CODE TESTS RESULT OUT OF REFERENCE UNITS RANGE LAB HGB 11.5-15.5 g/dL Low Alert Hemoglobin 5.5 Result Comment: Result checked and verified No clot detected. Called to and read back by: Gemma Ochoa G60 YU 10/26/17 Jerardo Munoz Performed By: #### HGB #### [facility] [address], [place] [address] LACTATE Collected: 10/26/2017 Status: F Source: [place] 2:29 AM [facility] REPOSITORY TYPE CODE TESTS RESULT OUT OF REFERENCE UNITS RANGE LAB LACT 0.5-2.2 mmol/L Lactate 1.5 Performed By: #### LACT #### [address] [address] TYPE AND SCREEN Collected: 10/26/2017 Status: F Source: [place] 1:15 AM [facility] REPOSITORY TYPE CODE TESTS RESULT OUT OF REFERENCE UNITS RANGE LAB %ABR B ABO/RH(D) POSITIVE LAB % Antibody POS Screen Performed By: #### TSCR #### [facility] [address], [place] [address] PROTIME Collected: 10/26/2017 Status: F Source: [place] 12:20 AM [facility] REPOSITORY TYPE CODE TESTS RESULT OUT OF RANGE REFERENCE UNITS LAB PSEC 9.7-13.0 sec PT Sec 10.5 LAB INR 0.9-1.3 PT INR 1.0 Result Comment: Vitamin K Antagonist (VKA) Therapeutic Range: INR 2 to 3 (Target INR of 2.5) Note: For patients treated with VKA drugs, such as warfarin, the [place] [employer] 2012 Guideline recommends a therapeutic INR range of 2 to 3 (target INR of 2.5). This recommendation includes high-risk patients with antiphospholipid syndrome with previous arterial or venous thromboembolism, current-generation mechanical or bioprosthetic aortic heart valve replacement. Note: Patients with mechanical aortic valve replacement and additional risk factors for thromboembolic events (atrial fibrillation, previous thromboembolism, LV dysfunction, hypercoagulable conditions) or an older generation mechanical AVR (i.e., ball in-Cage) or any mechanical MVR should have a INR therapeutic range of 2.5 to 3.5 (target INR of 3). Guyatt GH, et al. Chest 2012, 141:7S-47S Diogenes RA, et al. [facility] 2017, 70: 252-289 Performed By: #### PT, PTT, CMP, PHOS, CBCDIF #### [facility] [address], [place] [address] APTT Collected: 10/26/2017 Status: F Source: [place] 12:20 AM [facility] REPOSITORY TYPE CODE TESTS RESULT OUT OF RANGE REFERENCE UNITS LAB APTT 23.0-32.4 sec APTT 26.8 Result Comment: Unfractionated Heparin Therapeutic Ranges: Standard Heparin Nomogram: 53 to 78 seconds (anti-Xa level of 0.3 to 0.7 U/ml) Low Dose/ACS Nomogram: 49 to 67 seconds (anti-Xa level of 0.2 to 0.5 U/ml) Stroke Treatment Nomogram: 49 to 67 seconds (anti-Xa level of 0.2 to 0.5 U/ml) Note: The APTT therapeutic range has been determined for the current lot of laboratory APTT reagent in use throughout the [facility]. Performed By: #### PT, PTT, CMP, PHOS, CBCDIF #### [facility] [address], [place] [address] COMP METABOLIC PANEL Collected: 10/26/2017 Status: F Source: [place] 12:20 AM [facility] REPOSITORY TYPE CODE TESTS RESULT OUT OF REFERENCE UNITS RANGE LAB TP 6.3-8.0 g/dL Low Protein, Total 4.9 LAB ALB 3.9-4.9 g/dL Low Albumin 3.2 LAB CA 8.5-10.2 mg/dL Low Calcium, Total 8.0 LAB TBIL 0.2-1.3 mg/dL Bilirubin, Total 1.1 LAB ALKP 32-117 U/L Alkaline Phosphatase 54 LAB AST 13-35 U/L AST High 63 LAB GLU 74-99 mg/dL Glucose High 105 Result Comment: The [place] [employer] (ADA) provides guidance for cutoff values for fasting glucose and random glucose. The ADA defines fasting as no caloric intake for at least 8 hours. Fas ting plasma glucose results between 100 to 125 mg/dL indicate increased risk for diabetes (prediabetes). Fasting plasma glucose results greater than or equal to 126 mg/dL meet the criteria for diagnosis of diabetes. In the absence of unequivocal hyperglycemia, results should be confirmed by repeat testing. In a patient with classic symptoms of hyperglycemia or hyperglycemic crisis, random plasma glucose results greater than or equal to 200 mg/dL meet the criteria for diagnosis of diabetes. Reference: Standards of Medical Care in Diabetes 2016, [place] [employer]. Diabetes Care. 2016.39(Suppl 1). LAB BUN 7-21 mg/dL BUN High 63 LAB CRET 0.58-0.96 mg/dL Creatinine High 2.84 LAB NA 136-144 mmol/L Low Sodium 125 LAB K 3.7-5.1 mmol/L Potassium High 5.4 LAB CL 97-105 mmol/L Low Chloride 83 LAB CO2 22-30 mmol/L Low CO2 20 LAB AGAP 9-18 mmol/L Anion Gap High 22 LAB ALT 7-38 U/L ALT High 95 LAB GFRAA eGFR- Amer. 24 LAB GFRNAA . eGFR-All Other Races 20 Result Comment: eGFR (Estimated GFR) Units of measure: mL/min/1.73 meters squared eGFR is derived from the reexpressed MDRD Study equation using the following parameters: serum creatinine, age, gender and race. The creatinine assay has been calibrated to be traceable to IDMS. An eGFR <60 mL/min/1.73m2 for >3 months is consistent with chronic kidney disease. Refer to KDOQI guidelines for clinical interpretation. In patients with unstable renal function, e.g. those with acute kidney injury, the eGFR may not accurately reflect actual GFR. Performed By: #### PT, PTT, CMP, PHOS, CBCDIF #### [facility] [address] [place], [place] [address] PHOSPHORUS Collected: 10/26/2017 Status: F Source: [place] 12:20 AM [facility] REPOSITORY TYPE CODE TESTS RESULT OUT OF REFERENCE UNITS RANGE LAB PHOS 2.7-4.8 mg/dL High Phosphorus 8.4 Performed By: #### PT, PTT, CMP, PHOS, CBCDIF #### [facility] [address] [place], [place] [address] CBC AND DIFFERENTIAL Collected: 10/26/2017 Status: F Source: [place] 12:20 AM [facility] REPOSITORY TYPE CODE TESTS RESULT OUT OF REFERENCE UNITS RANGE LAB WBC 3.70-11.00 k/uL WBC High 21.82 LAB RBC 3.90-5.20 m/uL Low RBC 2.22 LAB HGB 11.5-15.5 g/dL Low Hemoglobin 6.6 LAB HCT 36.0-46.0 % Low Hematocrit 19.3 LAB MCV 80.0-100.0 fL MCV 86.9 LAB MCH 26.0-34.0 pG MCH 29.7 LAB MCHC 30.5-36.0 g/dL MCHC 34.2 LAB RDWCV 11.5-15.0 % RDW-CV High 15.6 LAB PLTCT 150-400 k/uL Low Platelet Count 44 Result Comment: Result checked and verified No clot detected. LAB MPV 9.0-12.7 fL MPV 13.0 High LAB ANEUT % Neut% 93.0 LAB AANEUT 1.45-7.50 k/uL Abs Neut 20.29 High LAB ALYMP % Lymph% 1.0 LAB AALYMP 1.00-4.00 k/uL Abs Lymph 0.22 Low LAB AMONO % [place]% 5.0 LAB AAMONO <0.87 k/uL Abs [place] 1.09 High LAB AEOS % Eosin% 0.0 LAB AAEOS <0.46 k/uL Abs Eosin 0.00 LAB ABASO % Baso% 0.0 LAB AABASO <0.11 k/uL Abs Baso 0.00 LAB NRBC 0 /100 WBC NRBCs 1 High LAB ABNRBC <0.01 k/uL Absolute nRBC 0.22 High LAB ABIMMG k/uL 20.29 ANC(includeSEG+BAND ) LAB AMETA % [place]% 1.0 LAB ANIIMI Anisocytosis Present LAB LFTIMI Left Shift Present LAB OVAIMI Ovalocytes Few LAB POLIMI Polychromasia Slight LAB PLTEST Platelet Estimate Platelet estimate decreased LAB DTYP DTYPE Manual Diff Performed By: #### PT, PTT, CMP, PHOS, CBCDIF #### [facility] [address] [place], [place] [address] STAPH AUREUS PCR Collected: 10/26/2017 Status: F Source: [place] 12:20 AM [facility] REPOSIT[facility] TYPE CODE TESTS RESULT OUT OF REFERENCE UNITS RANGE LAB [facility] Nasal S aureus Spec Source LAB MRSRES Negative for MRSA MRSA by PCR. PCR LAB SARES Negative for Staph Staphylococcus aureus PCR aureus by PCR. Performed By: #### SAPCR #### [facility] [address] [place], [place] [address] HISTORY PHYSICAL Observed: 10/26/2017 Status: COMPLETED Source: [place] 12:09 AM [facility] REPOSITORY HNO ID: [id number] Author: Aline Engle Service: Critical Care Author Type: Resident Type: HANDP Filed: 10/26/2017 4:29 AM Note Text: MICU Beige HANDP PATIENT NAME: Paloma Cannon History of Presenting Illness Ms. Cannon is a 27 year old female with a PMHx significant for: - Anti-phospholipid syndrome c/b DVT/PE requiring extensive percutaneous thrombectomy of her IVC and lower extremity veins followed by b/l iliac venous stents and endograft into her IVC, on long-term anti-coagulation (recently changed to fondaparinux from coumadin on 10/13 admission) and IVC, plasmapheresis q2 weeks, prednisone 5mg daily - DAH - on cyclophosphamide and prednisone, has had 6 episodes of respiratory decline since 2013, last admission for hemoptysis on 10/13/17, on 2 L at night and with exertion - HIT - CKD 3, 2/2 renal vein thrombosis and contrast-induced nephropathy - HFpEF - HTN - Peripheral neuropathy - post-thrombotic syndrome Recent admission 10/13/17-10/23/17 for hemoptysis and SOB, requiring intubation, was transferred to ICU for management of DAH initially requiring pressors. Coumadin was held on admission, and she was started on prophylactic fondaparinux on 10/14. She received PLEX 10/16 and then was extubated. On 10/17, she had left-sided chest pain with increased oxygen requirement, concerning for PE, but no imaging was done as plan was to continue anticoagulation. Plex again on 10/18. She had bilateral US no showing acute DVT but + for chronic common femoral DVT. Neurology was consulted for left foot numbness with no intervention recommended. She was d/sandy on PO prednisone. She presented to [facility] ED on 10/23 due to severe stabbing left-sided abdominal pain radiating to left arm/leg. She had a CT abdomen that showed extensive left retroperitoneal hemorrhage with mass effect to the left kidney, and less extensive hemorrhage along the surface of the spleen and along the mesentery. She was transferred to [place] as ICU at [facility] was full. ICU course at [place]: 10/23 Hb 4.8, received 2 units of blood - IR: urgent L RP angiogram, found to have bleeding from multiple foci of the left L3 artery, s/p embolization with gelfoam and coils w/ incidental finding of large lower extremity fistula, per vasc surgery surgically created, and no need for intervention at this time - Vascular surgery consulted, no need for intervention 10/24 -required 2 more units -Nephrology consulted for oliguric CAPRICE: contrast induced nephropathy - LE venous ultrasound: negative for acute dvt bilaterally 10/25 - trialed on IV lasix and demedex diuretics which did not improve urine output - received 2 more units - tunneled dialysis port placement - first dialysis today Reportedly, received a total of 7 units. Prior to infusions is premedicated with diphenhydramine and solu-cortef. Currently, the patient is afebrile, with HR of 100, hypertensive with MAPs of 110's, respiring at 98% on 6 L. Labs notable for Hb 6.6, WBC 21.82, plt 44 AST 63/ ALT 95 when previously normal Baseline Cr 1.22, now 2.84, sodium 125, potassium 5.4, CO2 20, phos 8.4 PTT 26.8, INR 1 Respiratory cx: many gram neg diplococci, moderate yeast, few gram positive bacilli Blood culture 10/23: NGTD Assessment and Plan Neuro: Mental status: alert and oriented Pain: has prn dilaudid and ella, states that fentanyl and morphine had no affect and even dilaudid WAITER/WAITRESS CABIN CLASS was insufficient, may need to readdress, dilaudid WAITER/WAITRESS CABIN CLASS for now Peripheral neuropathy: gabapentin 200 q12, at home TID, but now renally dosed Cardiovascular: HF: mildly decreased systolic function, diastolic function indeterminate on 10/13/17 ECHO HTN - hold home amlodipine Respiratory: DAH: cyclophosphamide on hold until 10/30, continue bactrim - continue prednisone 80 mg daily on day 4 Increased oxygen requirement likely 2/2 diffuse anasarca and difficulty w/ deep breathing - consult to nephrology with HD GI: Diet: renal Constipation: senna BID in setting of opiates, last BM yesterday Elevated liver enzymes, possibly 2/2 volume overload in the setting of acute RF Retroperitoneal hematoma - see hematology Renal CAPRICE on CKD III, 2/2 contrast, now requiring dialysis - first HD at [facility] on 10/25 with tunneled dialysis catheter placement - Zuniga to monitor I/Os - Nephrology consult Hyperphosphatemia in setting of acute renal failure - sevelamer TID Hyponatremia, likely 2/2 CAPRICE with hyperkalemia of 5.4 - monitor BMP - HD AG acidosis likely 2/2 lactic acidosis - check lactate - s/p 7 + 1 right now PRBCs Hematology Anti-phospholipid syndrome: - Plasmapheresis q2 weeks - hold anticoagulation until resolution of retroperitoneal bleed - consult to vascular medicine - consult to hematology Retroperitoneal bleed: s/p 7 units PRBCs s/p IR emobolization of left L3 artery - now with tube placement draining serosanguinous fluid - monitor Hb q8 - transfuse for Hb <7, plt <50 - will give 1 unit PRBC and 1 unit plt now for hb <7, plt <50 - solu-cortef IV 100 and benadryl 50 IV to be given prior to transfusion - check lactate Vasculopathy of right leg with poor pedal pulse - will need serial pulses checks, q2 ID Afebrile, but with leukocytosis in setting of steroids and acute bleed, has been elevated since 10/22 No acute signs of infection - follow blood/sputum cultures from OSH Endocrine - ICU nomogram DVT PPx: IPCs GI PPx: protonix Code status: full code DIET RENAL Lines, Drains, and Airways Line Dialysis / Apheresis Double Lumen Admission to Hospital Non- tunneled Left Chest -- days Peripheral 10/23/17 1235 Right Antecubital 22 Gauge 2 days Central Line Single Lumen 10/25/17 2314 Tunneled Left Chest less than 1 day Dialysis / Apheresis Double Lumen 10/25/17 2314 Admission to Hospital Left Chest less than 1 day Drain Indwelling Urinary Catheter 10/23/17 0520 Assessment Zuniga 2 days Drain/Tube 10/24/17 0200 Assessment Right Groin Drain #1 1 day Vitals Temp (24hrs), Av.4 ?C (97.5 ?F), Min:36.4 ?C (97.5 ?F), Max:36.4 ?C (97.5 ?F) Fluids No intake or output data in the 24 hours ending 10/25/17 0659 Physical Examination Performed Oral Mucosa: Moist mucous membranes Eyes: PERRLA Neck: Unremarkable; No adenopathy or JVD Cardiovascular: Murmur systolic Respiratory: Clear to auscultation Abdomen: Soft, edema Extremities: cool left lower extremity Edema- Pitting edema bilaterally, with signs of venous stasis Peripheral Pulses- positive pedal pulse on left, faint pedal pulse on right, identifiable with doppler Capillary Refill- less than 3 seconds Skin: Abnormalities- Yes, venous stasis bilaterally Breakdown- none Neurologic: alert and oriented Labs/Imaging Recent Labs 10/25/17 1814 10/25/17 0853 10/25/17 0500 10/24/17 2230 10/24/17 1355 10/24/17 0405 10/23/17 0630 WBC 22.45* 19.99* 21.88* 25.41* -- < > 28.42* < > 17.22* HB 7.7* 6.7* 7.0* 6.7* -- < > 6.7* < > 4.8* HCT 22.5* 19.1* 20.0* 19.3* -- < > 20.0* < > 15.6* PLT 40* 87* 92* 106* -- < > 151 < > 187 NA -- -- 125* 128* 129* -- -- < > 139 K -- -- 5.5* 5.0 6.0* -- -- < > 4.1 CHLOR -- -- 85* 86* 89* -- -- < > 97* CO2 -- -- 25 24 27 -- -- < > 31 CREAT -- -- 2.86* 2.77* 2.55* -- -- < > 1.35 P -- -- 8.6* -- -- -- 7.8* -- -- BUN -- -- 75* 77* 73* -- -- < > 63* GLUC -- -- 97 149* 109* -- -- < > 158* TPROT -- -- 4.7* -- -- -- -- -- 4.3* ALB -- -- 3.0* -- -- -- -- -- 3.2* MG -- -- 2.1 -- -- -- 2.1 -- 2.0 CA -- -- 7.8* 7.6* 7.9* -- -- < > 8.0* ALKPHOS -- -- 44 -- -- -- -- -- 34* TBILI -- -- 0.8 -- -- -- -- -- 0.4 AST -- -- 73* -- -- -- -- -- 14 ALT -- -- 106* -- -- -- -- -- 9 AMYLASE -- -- -- -- -- -- -- -- 47 LIPASE -- -- -- -- -- -- -- -- 48 < > = values in this interval not displayed. 10/23/17 IR Angiogram MULTIPLE FOCI OF ACTIVE EXTRAVASATION FROM BRANCHES OF THE LEFT L3 LUMBAR ARTERY. ?SUCCESSFUL GELFOAM/COIL EMBOLIZATION OF THE MIDPORTION OF THIS ARTERY. INCIDENTALLY DISCOVERED DISTAL LEFT COMMON FEMORAL ARTERY TO COMMON FEMORAL VEIN ARTERIOVENOUS FISTULA. ?GIVEN ITS LOCATION ACROSS THE JOINT, NOT AMENABLE TO ENDOVASCULAR STENTING. ?RECOMMEND SURGICAL EVALUATION. Past Medical History PAST MEDICAL HISTORY Diagnosis Date - (HFpEF) heart failure with preserved ejection fraction (HCC) 02/20/2016 HFpEF w last EF 50-55% On Torsemide, coreg, hydralazine and imdur at home No signs of acute exacerbation on admission Plan: -Continue home medications - Anasarca 11/29/2013 - Anemia 03/10/2015 Chronic microcytic anemia. Past work up (+ direct darby, elevated Bili, reticulocyte index 2.7%, iron studies pending) most likely AIHA Plasma exchange done Wednesday 01/17 Transfused over the weekend Hb trending up (baseline 7.5) - Antiphospholipid antibody with hypercoagulable state ([facility]) 11/29/2016 Hx of APL syndrome c/b Multiple DVT s/p L Common and External Iliac Stenting + IVC Bifurcation Endograft; c/b PE s/p IVC Filter, R Hepatic V. Thrombosis, and Diffuse Alveolar Hemorrhage. On Warfarin and PLEX (Twice Weekly)? Plan: -Warfarin 5mg qday-holding for planned EGD on 01/11 d/t supra therapeutic INR -Cont. PO Prednisone 10mg MWFS and 5mg TTS -Pantoprazole for GI PPx of Above -Apharesis was supposed to be yesterday, will contact plasmapheresis team on recommendations - Antiphospholipid syndrome (HCC) - Catastrophic Antiphospholipid antibody syndrome 11/09/2013 - Cholelithiasis 01/11/2017 Likely cause of recent pancreatitis. Plan: Per general surgery, no acute surgical intervention at this time. Will await results of EGD. If active gastritis, favor outpatient cholecystectomy. If no active gastritis on EGD, plan for cholecystectomy this admission. 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 Disp: 0.8 mL Rfl: 0 Unknown at Unknown time diphenhydrAMINE (BENADRYL) 50 mg capsule Take 1 capsule by mouth every 6 hours as needed for Itching/Rash. Disp: Rfl: Unknown at Unknown time gabapentin (NEURONTIN) 100 mg capsule Take 1 capsule by mouth three times daily for 7 days. Disp: Rfl: Unknown at Unknown time predniSONE (DELTASONE) 20 mg tablet Take 4 tablets by mouth once daily for 8 days. Disp: 32 tablet Rfl: 0 Unknown at Unknown time ondansetron (ZOFRAN, HYDROCHLORIDE,) 8 mg tablet Take 8 mg by mouth every 8 hours as needed for Nausea/Vomiting. Disp: Rfl: Unknown at Unknown time pantoprazole DR (PROTONIX) 40 mg tablet Take 40 mg by mouth daily at bedtime. Disp: Rfl: Unknown at Unknown time sulfamethoxazole-trimethoprim (BACTRIM DS) 800-160 mg per tablet Take 1 tablet by mouth every Monday,Monday,Monday. Disp: 36 tablet Rfl: 3 Unknown at Unknown time fluticasone (FLONASE) 50 mcg/actuation nasal spray Use 1-2 Sprays in each nostril once daily as needed for Cold/Allergy Symptoms (starting in allergy season). Disp: Rfl: Unknown at Unknown time senna 8.6 mg tab Take 1 tablet by mouth twice daily as needed. Disp: 60 tablet Rfl: 0 Unknown at Unknown time Rhubarb; Heparin; Iv Contrast [Iodine]; Rituximab 27 y/o female with hx of anti-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 endograft, on intermediate card tender AC with warfarin, plasmapharesis q2 weeks, prednisone 5 mg qD), Diffuse alveolar hemorrhage (on cyclophosphamide), HIT, HFpEF, HTN, CKD, peripheral neuropathy, post-phlebitic syndrome?who was admitted to [facility] MICU on 10/13 for alveolar hemorrhage. She was discharged yesterday after she stabilized and reached her home around 6 PM. She started having severe left sided abdominal pain under her breast radiating down to thigh region and went back to [facility] ED. She had a CT abdomen at outside hospital. Showed extensive L. retroperitoneal Hemorrhage with mass effect to left kidney. Also less extensive hemorrhage present along the surface of the spleen and along mesentery. Transferred to MICU as [facility] had no beds. On arrival to MICU patient complained of severe excruciating pain in the left abdomen, 10/10 in intensity, sharp in quality radiating from Left breast to thigh region. Pain is constant per patient and only minimally improved with Dilaudid patient received in [facility]. ICU course: HG 4.8, lethargic c/o left flank pain poor relief with IV fentanyl. BP low but acceptable (SBP 100-120) Pt received 2 units emergency blood, IR consulted, underwent urgent L RP angiogram, found to have bleeding from multiple foci of the left L3 artery, -> embolized. Incidential finding of large ADHESIVE SPRAYER -CFV fistula, Vascular Surgery consulted -. fistula created in 2013 no need for intervention will arrange for US eval for thrombus. 10/24 HG drifting down, (expected). required 2 units PRBC today. oliguric CAPRICE, UOP 0-5 cc/hr overnight, with rising CR, potassium 6 Nephrology consulted (contrast nephropathy), conservative management, may require HD, holding today. IV hyperkalemia protocol, kayexalate repet bmp 9PM Family requests transfer to [facility] . AC on hold in setting acute bleed 10/25: IV Lasix and Demedex diuretics did not improve u/o. Received 2 units PRBCs overnight with total of 7 units PRBCs since admission to . Is premedicated with diphenhydramine AND solu-cortef prior to each infusion of PRBCs.Nephrology consult to Dr rCandall who ordered HD through Apheresis port. Having problems with pain control. Has Dilaudid WAITER/WAITRESS CABIN CLASS. Added scheduled Percocet 1 q6h. Will continue to work with pt on pain control. Updated on plan of care. Assessment/Plan retroperitoneal bleed 10/23. HG 4.8, required 4 units PRBC underwent IR embolization of left lumbar artery serous output from right groin pouch placed HG continues to drift down (expected), required additional 2 units post procedure Plan: - transfused 1 unit PRBC today -PRBC 1 unit is transfused for Hgb > 7-with premedication benadryl AND solu-cortef Q4h [facility]'s Neuro: Peripheral neuropathy left flank pain Plan: -add Gabapentin, reduced dose given renal failure -dilaudid WAITER/WAITRESS CABIN CLASS -0.2mg q 20 minutes no basal -percocet p.o. Scheduled Continue to assess for effective pain management. Cardiovascular: HFpEF: LVEF ~ 50% BP low on presentation in setting acute blood loss anemia Has not required pressors improved, holding antihypertensives Plan: - Amlodipine, hydralazine, currently on hold resume if pt becomes hypertensive Renal: Acute on chronic renal disease 2/2 contrast nephropathy CKD (baseline Cr ~ 1.1-1.3): Cr 1.32 upon presentation now 2.86 worsening renal function contrast, hyperkalemia (6) -Nephrology updated oliguric UOP 5-10cc/h poor response to low dose lasix Plan: - Monitor BUN/Cr -zuniga for accurate I/O in setting oliguric CAPRICE -Nephrology consulted - Dr Crandall -HD ordered per Dr Crandall-2 liters removed Hematology: - 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 discharged 10/22 on fondaparinux currently on hold Plan: Consulted hematology, appreciate recs --plasmapheresis q 2 weeks and prednisone 80 mg daily; a prednisone taper by 20 mg every four days (with maintenance of prednisone 5 mg daily) plasmapheresis due Monday will transfer to [facility] by Monday 10/30 Prophylactic: - PPI -a/c held, scd's ADHESIVE SPRAYER -CFV fistula, Vascular Surgery consulted -. fistula created in 2013 no need for intervention FULL CODE difficult airway seen and discussed with Dr Wyatt On transfer to [facility] to [facility] Dr Womack contacting MICU staff to discuss transfer No [facility] bed avail. today 10/25. SIGNATURE: Aline Engle MD, PGY-1 PATIENT NAME: Paloma Cannon DATE: October 26, 2017 TIME: 12:09 AM PAGER: [phone] Note: These recommendations are not final until staffed by provider DR. FRED STONE, SR. HOSPITAL STAFF PHYSICIAN NOTE OF PERSONAL INVOLVEMENT IN CARE I have reviewed the history and physical examination obtained and documented by the resident and I personally participated in the fernandes components. I have discussed the case and management of the patient's care. The following comments revise or confirm relevant fernandes components of the note. Paloma Cannon is a 27 year old woman with antiphospholipid syndrome, multiple embolic complications, on chronic anticoagulation however complicated by bleeding episodes Recently discharged from our hospital after severe illness, intubated for DAH, converted from coumadin to fondaparinux however within a day represented to the hospital locally with retroperitoneal bleed Embolized however still having evidence of inappropriate improvement with transfusions and has abdominal pain radiating to leg from significant inflammation/infiltration of blood in retroperitoneal space With contrast given, CAPRICE worsened and needed dialysis to remove fluid which helped abd distension and breathing however now becoming worse. Active issues and plans for today include: Retroperitoneal bleed on fondaparinux in patient with APLS hx of DVTs and PEs Off anticoagulation Monitoring H/H s/p embolization Pain control for RP space Hypoxemia on 6L Atelectasis from pain, poor excursion Fluid overload Incentive spirometry when pain better Dialysis to remove fluid in am Hx of DAH at this point does not appear to be the case Off anticoag Acute on chronic kidney injury from contrast Malnutrition adding to fluid overload Poor appetite due to edema Requesting outside solar sales consultant involvement from those involved on regular basis Nephrology Vascular medicine hematology This patient has a high probability of sudden, clinically significant deterioration, which requires the highest level of physician preparedness to intervene urgently. I managed/supervised life or organ supporting interventions that required frequent physician assessment. I devoted my full attention in the ICU to the direct care of this patient for the period of time indicated below. Time I spent with family or surrogate(s) is included only if the patient was incapable of providing the necessary information or participating in medical decision making. Time devoted to teaching and to any procedures I billed separately is not included. Critical Care documentation: The patient has the following organ/system impairment(s): Cardiovascular impairment, Respiratory impairment and Severe metabolic abnormality Time spent providing critical care services: 50 minutes Britney Brady MD Respiratory [place] Beeper Number: [id number] Date of Service: 10/26/2017 PLAN OF CARE Observed: 10/25/2017 Status: COMPLETED Source: [facility] 10:35 PM CLINIC OTHER CAMPUS REPOSITORY HNO ID: [id number] Author: Carito Ferrari(Pharmacist) Service: Pharmacy Author Type: Pharmacist Type: Plan of Care Filed: 10/26/2017 11:43 AM Note Text: DISCHARGE MEDICATION REVIEW BY PHARMACY Patient Name: Paloma Cannon Admission Date: 10/23/2017 Date of Contact: October 26, 2017 Time of Contact: 11:43 AM Medication list was reviewed by a Pharmacist for drug interactions or drug related problems:Yes Below is a summary of pharmacist recommendations discussed with LIP: No Recommendations at this time from Discharge Medication List. CARITO FERRARI, PHARMACIST October 26, 2017 11:43 AM Pager: [phone] 10/26/2017 11:43 AM Medication List START taking these medications diphenhydrAMINE 50 mg capsule Commonly known as: BENADRYL Take 1 capsule by mouth every 6 hours as needed for Itching/Rash. CHANGE how you take these medications gabapentin 100 mg capsule Commonly known as: NEURONTIN Take 1 capsule by mouth three times daily for 7 days. What changed: - how much to take - how to take this - when to take this - additional instructions CONTINUE taking these medications FLONASE 50 mcg/actuation nasal spray Generic drug: fluticasone predniSONE 20 mg tablet Commonly known as: DELTASONE Take 4 tablets by mouth once daily for 8 days. PROTONIX 40 mg tablet Generic drug: pantoprazole DR senna 8.6 mg Tab Commonly known as: SENOKOT Take 1 tablet by mouth twice daily as needed. sulfamethoxazole-trimethoprim 800-160 mg per tablet Commonly known as: BACTRIM DS Take 1 tablet by mouth every Monday,Monday,Monday. ZOFRAN 8 mg tablet Generic drug: ondansetron STOP taking these medications amLODIPine 5 mg tablet Commonly known as: NORVASC cetirizine 10 mg tablet Commonly known as: ZyrTEC COMPOUNDED PRESCRIPTION fondaparinux 2.5 mg/0.5 mL Syrg Commonly known as: ARIXTRA torsemide 20 mg tablet Commonly known as: DEMADEX ASK your doctor about these medications HYDROmorphone 0.5 mg/mL WAITER/WAITRESS CABIN CLASS CLINICIAN DOSE 0.5 mg/mL Inject 0.8 mL intravenously one time only for 1 dose. Ask about: Should I take this medication? Where to Get Your Medications Information about where to get these medications is not yet available ! Ask your nurse or doctor about these medications - diphenhydrAMINE 50 mg capsule - gabapentin 100 mg capsule - HYDROmorphone 0.5 mg/mL WAITER/WAITRESS CABIN CLASS CLINICIAN DOSE 0.5 mg/mL CNDS Observed: 10/25/2017 Status: COMPLETED Source: [place] 10:35 PM CLINIC OTHER CAMPUS REPOSITORY HNO ID: [id number] Author: Sapna Wyatt Service: Critical Care Author Type: Physician Type: Discharge Summaries Filed: 11/20/2017 12:42 PM Note Text: .DISCHARGE SUMMARY PATIENT NAME: Paloma Cannon ADMISSION DATE: 10/23/2017 DISCHARGE DATE: 10/25/17 ATTENDING PHYSICIAN: Sapna Wyatt REASON FOR HOSPITALIZATION: Extensive L. Retroperitoneal hemorrhage with mass effect to L. 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 She was discharged after she stabilized but developed severe left sided abdominal pain radiating down to thigh. CT of abd at [facility] showed extensive L. retroperitoneal hemorrhage with mass effect to left kidney. Hemorrhage also to surface of spleen and mesentery. Transferred to MICU as [facility] had no beds. In , received 2 units PRBC AND underwent urgent L. RP angiogram in IR. Hemorrhage from multiple foci of L L3 artery embolized. Oliguric CAPRICE probably 2/2 contrast nephropathy. Family requests transfer to [facility] for scheduled plasmapheresis. DIAGNOSIS: Active Problems: CAPRICE (acute kidney injury) ([facility]) HTN (hypertension) History of heparin-induced thrombocytopenia Peripheral neuropathy APS (antiphospholipid syndrome) ([facility]) Recurrent deep vein thrombosis (DVT) ([facility]) CKD (chronic kidney disease) stage 3, GFR 30-59 ml/min (HFpEF) heart failure with preserved ejection fraction ([facility]) Obesity, Class III, BMI >= 40 (morbid obesity) E66.01 Retroperitoneal bleeding Acute blood loss anemia Retroperitoneal hemorrhage Malnutrition of mild degree ([facility]) Resolved Problems: * No resolved hospital problems. * , Primary Diagnosis: Extensive L. Retroperitoneal hemorrhage with acute blood loss anemia, complicated by Antiphospholipid syndrome, worsening acute on chronic renal failure, HF w preserved ejection fraction AND hypotension Secondary Diagnoses: HIT with thrombocytopenia, peripheral neuropathy Recurrent DVTs OPERATIONS DURING HOSPITALIZATION: None PROCEDURES DURING HOSPITALIZATION: Embolized multiple bleeding foci from L. L-3 with gelfoam and coils HOSPITAL COURSE: No notes on file LABS AND PROCEDURES PENDING AT DISCHARGE: CAT Scan Results Large left peritoneal hematoma, known chronic central venous thrombosis, Culture Results (Sputum many Moraxella catarrhalis beta Lactamase positive, Blood AND Urine cx's negative*) Lab Results Hgb 6.0, WBC 17, BUN 28, Creat1.39, Na 131. X-Ray Results CXR: bilat. Pulmonary interstitial edema Test Results Not Yet Available from This Hospitalization: Please Review at Your Follow Up Appointment None CONSULTING TEAMS DURING HOSPITALIZATION: Heme-Onc, Nephrology, Radiology, Vascular PATIENT CONDITION AT DISCHARGE: Guarded DISCHARGE DISPOSITION: Acute Care Facility Discharge Physical Exam: VITAL SIGNS: BP 153/83 Pulse 95 Temp 36.4 ?C (97.5 ?F) (Oral) Resp 11 Ht 160 cm (5' 2.99) Wt 104.1 kg (229 lb 8 oz) SpO2 99% BMI 40.66 kg/m? GENERAL: Alert, no distress, cooperative, Obese, Alert, Moderate Distress, Cooperative SKIN: Skin color, texture, turgor normal. No rashes or lesions. LUNGS: Lungs clear to auscultation, Good diaphragmatic excursion CARDIAC: Normal S1 and S2; no rubs, murmurs, or gallops ABDOMEN: Positive findings: distended, tenderness: mild location: generalized, hypoactive bowel sounds EXTREMITIES: Extremities normal, no deformities, edema, clubbing or skin discoloration. Good capillary refill., Positive findings: neuropathy lower legs, No ulcers NEURO: Gait normal. Reflexes normal and symmetric. Sensation grossly intact, Cranial nerves II-XII intact PULSES: 2+ radial, 2+ carotid INFORMATION PROVIDED TO PATIENT: (To pull info documented from the DC Instruct Orderset Complete O/S First): Discharged as direct admit to [facility] for scheduled Plasmapheresis DISCHARGE MEDICATION: Discharge Medication List as of 10/25/2017 10:19 PM START taking these medications HYDROmorphone WAITER/WAITRESS CABIN CLASS CLINICIAN DOSE 0.5 mg/mL Inject 0.8 mL intravenously one time only for 1 dose. Print RX, Disp-0.8 mL, R-0 Dx: 1. Retroperitoneal bleeding diphenhydrAMINE (BENADRYL) 50 mg capsule Take 1 capsule by mouth every 6 hours as needed for Itching/Rash. Med Update CONTINUE these medications which have CHANGED gabapentin (NEURONTIN) 100 mg capsule Take 1 capsule by mouth three times daily for 7 days. Med Update, Long-term CONTINUE these medications which have NOT CHANGED predniSONE (DELTASONE) 20 mg tablet Take 4 tablets by mouth once daily for 8 days. Print RX, Disp-32 tablet, R-0 ondansetron (ZOFRAN, HYDROCHLORIDE,) 8 mg tablet Take 8 mg by mouth every 8 hours as needed for Nausea/Vomiting. Historical Med pantoprazole DR (PROTONIX) 40 mg tablet Take 40 mg by mouth daily at bedtime. Historical Med sulfamethoxazole-trimethoprim (BACTRIM DS) 800-160 mg per tablet Take 1 tablet by mouth every Monday,Monday,Monday. Normal, Disp-36 tablet, R-3 fluticasone (FLONASE) 50 mcg/actuation nasal spray Use 1-2 Sprays in each nostril once daily as needed for Cold/Allergy Symptoms (starting in allergy season). Historical Med senna 8.6 mg tab Take 1 tablet by mouth twice daily as needed. Print RX, Disp-60 tablet, R-0 STOP taking these medications COMPOUNDED PRESCRIPTION Comments: Reason for Stopping: fondaparinux (ARIXTRA) 2.5 mg/0.5 mL syrg Comments: Reason for Stopping: amLODIPine (NORVASC) 5 mg tablet Comments: Reason for Stopping: cetirizine (ZYRTEC) 10 mg tablet Comments: Reason for Stopping: torsemide (DEMADEX) 20 mg tablet Comments: Reason for Stopping: FUTURE APPOINTMENTS: Q2 weeks plasmapheresis [facility] TIME OF CARE (Use first blank if not applicable): TIME OF CARE: Discharge Management: I personally spent greater than 30 minutes involved in the discharge management of this patient. SIGNATURE: Navi Giang APRN.CNP PATIENT NAME: Paloma Cannon DATE: November 06, 2017 TIME: 4:36 PM PAGER/CONTACT #: [phone] NURSING PROG Observed: 10/25/2017 Status: COMPLETED Source: [place] 7:15 PM CLINIC OTHER CAMPUS REPOSITORY HNO ID: [id number] Author: Kenisha Sauer) JEFF Amaya Service: (none) Author Type: Registered Nurse Type: Nursing Progress Note Filed: 10/25/2017 10:49 PM Note Text: Nursing Progress Note Patient Name: Paloma Cannon [facility] 1915: Report received from day RN. 1999: Assessment complete pt is AANDO x3 and following commands, complaints of flank pain 03/19, encouraged use of WAITER/WAITRESS CABIN CLASS. Sinus rhythm on the monitor. SpO2 is 100% on 6L NC, will titrate down as able. For complete assessment see flow sheet. 2144: Pt received bed at main [place], [facility] bed 6. Critical Care transport ETA is 1 hour. 2149: Report called to [facility] JEFF Anguiano. 2214: Belongings verified with pt. Percocet given early in anticipation of transport. 2219: Critical care transport at bedside, Dilaudid gtt discontinued. 2230: Pt transported off the unit in stable condition. Pt's father Morgan notified of transfer as husbands phone number was not working. This note was completed by: Kenisha Amaya RN CBC Collected: 10/25/2017 Status: F Source: [place] 6:14 PM CLINIC OTHER CAMPUS REPOSITORY TYPE CODE TESTS RESULT OUT OF REFERENCE UNITS RANGE LAB WBC 3.70-11.00 k/uL WBC High 22.45 LAB RBC 3.90-5.20 m/uL Low RBC 2.65 LAB HGB 11.5-15.5 g/dL Low Hemoglobin 7.7 LAB HCT 36.0-46.0 % Low Hematocrit 22.5 LAB MCV 80.0-100.0 fL MCV 84.9 LAB MCH 26.0-34.0 pG MCH 29.1 LAB MCHC 30.5-36.0 g/dL MCHC 34.2 LAB RDWCV 11.5-15.0 % RDW-CV High 15.8 LAB PLTCT 150-400 k/uL Low Platelet Count 40 Result Comment: Sample checked for a clot. LAB MPV 9.0-12.7 fL <<DO NOT MPV REPORT>> Performed By: #### CBC #### [facility] [address] [id number] PROGRESS Observed: 10/25/2017 Status: COMPLETED Source: [place] 3:47 PM CLINIC OTHER CAMPUS REPOSITORY HNO ID: [id number] Author: Navi Giang Service: Critical Care Author Type: Nurse Practitioner Type: Progress Notes Filed: 10/25/2017 4:14 PM Note Text: MICU PROGRESS NOTE WITH COORD CARE SERVICE DATE: 10/25/2017 SERVICE TIME: 12:00 Admission Date: 10/23/2017 Day #: 3 in the MICU. 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 She was discharged yesterday after she stabilized and reached her home around 6 PM. She started having severe left sided abdominal pain under her breast radiating down to thigh region and went back to [facility] ED. She had a CT abdomen at outside hospital. Showed extensive L. retroperitoneal Hemorrhage with mass effect to left kidney. Also less extensive hemorrhage present along the surface of the spleen and along mesentery. [facility] had no beds. On arrival to MICU patient complained of severe excruciating pain in the left abdomen, 10/10 in intensity, sharp in quality radiating from Left breast to thigh region. Pain is constant per patient and only minimally improved with Dilaudid patient received in [facility]. ICU course: HG 4.8, lethargic c/o left flank pain poor relief with IV fentanyl. BP low but acceptable (SBP 100-120) Pt received 2 units emergency blood, IR consulted, underwent urgent L RP angiogram, found to have bleeding from multiple foci of the left L3 artery, -> embolized. Incidential finding of large ADHESIVE SPRAYER -CFV fistula, Vascular Surgery consulted -. fistula created in 2013 no need for intervention will arrange for US eval for thrombus. 10/24 HG drifting down, (expected). required 2 units PRBC today. oliguric CAPRICE, UOP 0-5 cc/hr overnight, with rising CR, potassium 6 Nephrology consulted (contrast nephropathy), conservative management, may require HD, holding today. IV hyperkalemia protocol, kayexalate repet bmp 9PM Family requests transfer to [facility] . AC on hold in setting acute bleed 10/25: IV Lasix and Demedex diuretics did not improve u/o. Received 2 units PRBCs overnight with total of 7 units PRBCs since admission to . Is premedicated with diphenhydramine AND solu-cortef prior to each infusion of PRBCs.Nephrology consult to Dr Crandall who ordered HD through Apheresis port. Having problems with pain control. Has Dilaudid WAITER/WAITRESS CABIN CLASS. Added scheduled Percocet 1 q6h. Will continue to work with pt on pain control. Updated on plan of care. Assessment/Plan retroperitoneal bleed 10/23. HG 4.8, required 4 units PRBC underwent IR embolization of left lumbar artery serous output from right groin pouch placed HG continues to drift down (expected), required additional 2 units post procedure Plan: - transfused 1 unit PRBC today -PRBC 1 unit is transfused for Hgb > 7-with premedication benadryl AND solu-cortef Q4h HANDH's Neuro: Peripheral neuropathy left flank pain Plan: -add Gabapentin, reduced dose given renal failure -dilaudid WAITER/WAITRESS CABIN CLASS -0.2mg q 20 minutes no basal -percocet p.o. Scheduled Continue to assess for effective pain management. Cardiovascular: HFpEF: LVEF ~ 50% BP low on presentation in setting acute blood loss anemia Has not required pressors improved, holding antihypertensives Plan: - Amlodipine, hydralazine, currently on hold resume if pt becomes hypertensive Renal: Acute on chronic renal disease 2/2 contrast nephropathy CKD (baseline Cr ~ 1.1-1.3): Cr 1.32 upon presentation now 2.86 worsening renal function contrast, hyperkalemia (6) -Nephrology updated oliguric UOP 5-10cc/h poor response to low dose lasix Plan: - Monitor BUN/Cr -zuniga for accurate I/O in setting oliguric CAPRICE -Nephrology consulted - Dr Crandall -HD ordered per Dr Crandall-2 liters removed Hematology: - 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 discharged 10/22 on fondaparinux currently on hold Plan: Consulted hematology, appreciate recs --plasmapheresis q 2 weeks and prednisone 80 mg daily; a prednisone taper by 20 mg every four days (with maintenance of prednisone 5 mg daily) plasmapheresis due Monday will transfer to [facility] by Monday 10/30 Prophylactic: - PPI -a/c held, scd's ADHESIVE SPRAYER -CFV fistula, Vascular Surgery consulted -. fistula created in 2013 no need for intervention FULL CODE difficult airway seen and discussed with Dr Wyatt On transfer to [facility] to [facility] Dr Womack contacting MICU staff to discuss transfer No [facility] bed avail. today 10/25. OBJECTIVE: VITAL SIGNS (last 24hrs min/max): Temp Av.6 ?C (97.9 ?F) Min: 36.5 ?C (97.7 ?F) Max: 37 ?C (98.6 ?F) Pulse Av.1 Min: 87 Max: 121 No Data Recorded Cuff BP Min: 91/56 Max: 154/75 Pain Score: 10/10 Vital signs reviewed. Relevant comments- VSS on NC O2 NET FLUID BALANCE Intake/Output Summary (Last 24 hours) at 10/25/17 1548 Last data filed at 10/25/17 1251 Gross per 24 hour Intake 1941 ml Output 2766 ml Net -825 ml MEDICATIONS Current hospital medications: oxyCODONE-acetaminophen 5-325 mg 1 tablet (PERCOCET) 1 tablet ORAL q 6 H HYDROmorphone 0.5 mg/mL WAITER/WAITRESS CABIN CLASS CLINICIAN DOSE 0.4 mg 0.4 mg INTRAVENOUS ONCE diphenhydrAMINE 50 mg (BENADRYL) 50 mg ORAL q 6 H PRN gabapentin 100 mg cap(s) (NEURONTIN) 100 mg ORAL TID pantoprazole DR 40 mg tab(s) (PROTONIX) 40 mg ORAL DAILY (6 AM) senna 17.2 mg tab(s) (SENOKOT) 17.2 mg ORAL BID docusate sodium 100 mg cap(s) (COLACE) 100 mg ORAL BID ondansetron (PF) 4 mg injection (ZOFRAN) 4 mg INTRAVENOUS q 6 H PRN 0.9% NaCl 10 mL 10 mL INTRAVENOUS q 12 H 0.9% NaCl 20 mL 20 mL INTRAVENOUS PRN 0.9% NaCl 10 mL 10 mL INTRAVENOUS q 12 H 0.9% NaCl 20 mL 20 mL INTRAVENOUS PRN HYDROmorphone WAITER/WAITRESS CABIN CLASS 0.5 mg/mL in NaCl 0.9% 100 mL INTRAVENOUS CONTINUOUS predniSONE (DELTASONE) tab(s) 80 mg 80 mg ORAL DAILY sulfamethoxazole-trimethoprim 800-160 mg 1 tablet (BACTRIM DS,SEPTRA DS) 1 tablet ORAL -WE hydrocortisone topical cream 1% TOPICAL BID PRN INFUSIONS HYDROmorphone WAITER/WAITRESS CABIN CLASS 0.5 mg/mL Lines, Drains, and Airways Line Central Line Single Lumen Non-tunneled Left Chest -- days Dialysis / Apheresis Double Lumen Admission to Hospital Non- tunneled Left Chest -- days Peripheral 10/23/17 1235 Right Antecubital 2 days Drain Indwelling Urinary Catheter 10/23/17 0520 Assessment Zuniga 2 days Drain/Tube 10/24/17 0200 Assessment Right Groin Drain #1 1 day PHYSICAL EXAM HEENT: Oral Mucosa: Dry mucous membranes Feeding Tube: No Eyes: PERRLA Neck: Unremarkable; No adenopathy or JVD Cardiovascular: Regular rhythm Relevant Hemodynamic Data: Occ mild sinus tachycardia Respiratory: Clear to auscultation Supplemental Oxygen: Yes. FiO2 NC %FIO2 Min: 30 Max: 55 Abdomen: Firm and tender to light touch. BS's diminished Extremities: Edema- No Peripheral Pulses- Present all extremities Skin: Abnormalities- yes Breakdown- No Neurologic: Awake, oriented and Alert NUTRITION: regular with dietary supplements for poor appetite Enteral Feeds: No DATA: Diagnostic tests reviewed for today's visit: Most recent labs and imaging results. LABS: CBC, Coags, BMP, Mg, Phos Recent Labs 10/25/17 0853 10/25/17 0500 10/24/17 2230 10/24/17 1355 10/24/17 0405 10/23/17 0630 WBC 19.99* 21.88* 25.41* -- < > 28.42* < > 17.22* HB 6.7* 7.0* 6.7* -- < > 6.7* < > 4.8* HCT 19.1* 20.0* 19.3* -- < > 20.0* < > 15.6* PLT 87* 92* 106* -- < > 151 < > 187 NA -- 125* 128* 129* -- -- < > 139 K -- 5.5* 5.0 6.0* -- -- < > 4.1 CHLOR -- 85* 86* 89* -- -- < > 97* CO2 -- 25 24 27 -- -- < > 31 BUN -- 75* 77* 73* -- -- < > 63* CREAT -- 2.86* 2.77* 2.55* -- -- < > 1.35 GLUC -- 97 149* 109* -- -- < > 158* CA -- 7.8* 7.6* 7.9* -- -- < > 8.0* MG -- 2.1 -- -- -- 2.1 -- 2.0 P -- 8.6* -- -- -- 7.8* -- -- < > = values in this interval not displayed. Cardiac Enzymes CULTURES: Blood: No growth to date Urine: No growth to date Sputum: No growth to date PATIENT CHECKLIST ? Are restraints necessary: No ? Deep vein thrombosis prophylaxis administered? No. Contraindicated. ? Stress ulcer prophylaxis? Yes ? Nasogastric tube? No ? Zuniga catheter necessary? Yes ? Is central line essential? Yes ? Plan discussed with assigned RN? Yes ? Family updated within last 24 hours? Yes Critical Care Time 40 minutes. SIGNATURE: Navi Giang APRN.CNP PATIENT NAME: Paloma Cannon DATE: October 25, 2017 TIME: 3:47 PM PAGER/CONTACT #: [phone] NURSING PROG Observed: 10/25/2017 Status: COMPLETED Source: [place] 2:25 PM [facility] OTHER CAMPUS REPOSITORY HNO ID: [id number] Author: Roxane Sauer) JEFF Campbell Service: Nursing Author Type: Registered Nurse Type: Nursing Progress Note Filed: 10/25/2017 4:57 PM Note Text: Nursing Progress Note Patient Name: Paloma Cannon [facility] Daily Note:0800- Report and SBAR with offgoing RN, see flow sheet for details. GENERATION MECHANIC HELPER updated by offgoing nurse, will review labs etc 0830- Dr Crandall in for rounds, will order HD treatment, informed pt and discussed treatment 0900- Lab sent per order 0920- Director Diabetes in with MICU team for rounds, updated on status. Pt states pain in Left flank is at 40/10, orders placed for oral pain medication and will give clinician dose of dialudid 1000- Dialysis nurse arrived BS to set up for treatment 1220- Pt complaining of severe pain, rates 20/10, is undergoing HD treatment at this time. Notified Brandi GENERATION MECHANIC HELPER pt is continuously having severe pain, will discuss pain medication orders with can intake worker 1320- HD treatment completed, PRBC's sent for, will administer solu-cortef and benedryl 1345- heavy assist OOB to recliner, pt weak but able to stand and pivot. 1425- PRBC's started, pt remains in recliner, states pain is somewhat better. Drinking liquid supplements. Received benedry and solu medrol prior to transfusion This note was completed by: Roxane Campbell RN PROGRESS Observed: 10/25/2017 Status: COMPLETED Source: [place] 11:26 AM CLINIC OTHER CAMPUS REPOSITORY O ID: [id number] Author: Allyson Rosas (Tech) Service: Dialysis Author Type: Title Clerk Automobile Type: Progress Notes Filed: 10/25/2017 11:27 AM Note Text: PATIENT EDUCATION TOPIC: PATIENT INFORMATION: Plan of Care PATIENT NAME: Paloma Cannon [facility] READINESS TO LEARN COGNITIVE ABILITY: Alert and oriented MOTIVATION TO LEARN: Interested FAMILY SUPPORT: None - Unavailable/disinterested INSTRUCTION PROVIDED TO: Patient PATIENT LEARNS BEST BY: Verbal Instruction FACTORS AFFECTING LEARNING: None PHYSICAL LIMITATIONS AFFECTING LEARNING: None LEARNING RESPONSE DIAGNOSIS: ADULT: Renal Trauma PATIENT/FAMILY RESPONSE: Verbalizes understanding of: CATHETER CARE-Correct procedure to perform catheter care METHOD OF INSTRUCTION: Individual instruction FOLLOW-UP PLAN: Complete - No need for follow-up INSTRUCTIONAL AIDS USED: NA SUPPLEMENTAL MATERIAL PROVIDED TO PATIENT: None REFERRAL (RECOMMENDATION): None Electronically Signed By: ALLYSON Rosas PROGRESS Observed: 10/25/2017 Status: COMPLETED Source: [place] 11:22 AM [facility] REPOSITORY HNO ID: [id number] Author: Allyson Rosas (Tech) Service: Dialysis Author Type: Title Clerk Automobile Type: Progress Notes Filed: 10/25/2017 12:50 PM Note Text: UNIVERSAL PROTOCOL / SAFETY CHECKLIST Procedure to be performed: Hemodialysis Sign in Communication: Completed Hepatitis is negative at this time Time Out: Team Confirms the Correct Patient, Correct Procedure, Correct Site and Site Marking, Correct Position (if applicable), Prep and Dry Time (if applicable). Time: 1049 Affirmation of Time Out: YES Sign Out Discussion: Completed Pt treatment started at 1049 with no problems. Pt is set to have a 2 hour treatment and in that time we are going to attempt to remove 2L . This is pt first hemodialysis treatment. Pt is allergic to heparin. Pt arterial on her cvc does not aspirate or flush that well. Her venous flushes and aspirate well. Pt lines are reversed. Pt lumens are 1.6ml each. Pt floor RN did assessment. Dialysis was explained to pt. We will continue to monitor pt for the remainder of her treatment. -TB 1128 Hepatitis was drawn and sent to the lab right after treatment was started-TB 1251 pt treatment is complete. We removed 2L lumens infused with sodium citrate 4% and capped off. Report given to floor RN-TB ALLYSON Rosas CASE MANAGEM Observed: 10/25/2017 Status: COMPLETED Source: [place] 10:52 AM [facility] REPOSITORY HNO ID: [id number] Author: Aria Albarran (Sw) Service: Care Management Author Type: Toolmaker Helper Type: Care Mgt Progress Note Filed: 10/25/2017 10:54 AM Note Text: CARE MANAGEMENT PROGRESS NOTE SERVICE DATE: 10/25/2017 SERVICE TIME: 10:52 AM LOS: 2 days Per huddle. Pt is being transferred to [facility]. Potentially before Monday. CM to follow and support. Pt home with spouse. Likely no skilled needs. SIGNATURE: ROBBI Dahl PATIENT NAME: Paloma Cannon DATE: October 25, 2017 TIME: 10:52 AM PAGER/CONTACT #: [phone] HEPATITIS B SURF. AG Collected: 10/25/2017 Status: F Source: [place] 10:35 AM CLINIC OTHER CAMPUS REPOSITORY TYPE CODE TESTS RESULT OUT OF REFERENCE UNITS RANGE LAB HBSAG Negative Hepatitis B Negative Surf. Ag Performed By: #### HBSAG #### [facility] [address] [place] [address] PROGRESS Observed: 10/25/2017 Status: COMPLETED Source: [place] 9:07 AM CLINIC OTHER CAMPUS REPOSITORY HNO ID: [id number] Author: Sapna Wyatt Service: Critical Care Author Type: Physician Type: Progress Notes Filed: 10/25/2017 6:30 PM Note Text: DR. FRED STONE, SR. HOSPITAL STAFF PHYSICIAN NOTE OF PERSONAL INVOLVEMENT IN CARE I have seen and examined the patient, reviewed the progress note completed by the nurse practitioner, and agree with the history, exam, and assessment/plan, with the following exceptions/additions. If there are fernandes items that I feel deserve particular emphasis, I have outlined them below. Please refer to the nurse practitioner note for full details, including a summary of our mutually agreed upon findings, assessment/plan, and recommendations. IMPRESSION:?27 y.o. 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 ?? PLAN:? ?? Acute on chronic hypoxic resp failure - currently on 6L O2 NC, titrate O2 down as able (2L O2 NC at home). HFpEF?- continue diuresis. Acute blood loss anemia due to retroperitoneal bleeding from L3 lumbar artery?- s/p embolization by IR 10/23, transfuse PRN, will need platelets + FFP if requires massive transfusion. Has serosanguinous drainage from femoral site, feel this is due to her edema, feel this is less likely urine as she currently has CAPRICE (see below). HIT - follow labs, Heme following. APS w/hx of VT/PE requiring thrombectomy in the past and recent DAH- holding AC (see above). ?Hematology following. Continue Prednisone taper + Bactrim PPx. Will need routine plasmapheresis 10/30. b/l ilac venous stents and endograft into IVC/Hx of AV fistula b/l LE's - created surgically in the past, Vascular following. Will b/l LE dopplers. HTN?- hold home meds for now. CAPRICE on CKD 3?- likely due to contrast nephropathy, baseline Cr 1.4, will need HD, Nephrology following. Hyperkalemia - due to above, medical tx. Hypervolemic hyponatremia - Nephrology following. Neuropathy?- continue Gabapentin at low dose adjusting for renal function (home med). GERD?- PPI (home med). DVT PPx - SCD's, holding meds due to acute hemorrhage. Awaiting transfer to [facility] as she will need plasmapheresis. ? Patient/Family Updated: d/w pt at bedside. I had also updated her over the phone yesterday, she states she will update her family later today. This patient has a high probability of sudden, clinically significant deterioration, which requires the highest level of physician preparedness to intervene urgently. I managed/supervised life or organ supporting interventions that required frequent physician assessment. I have devoted my full attention to the direct care of this patient for the amount of time indicated below. I have included time that I spent with family or surrogates only if the patient was incapable of providing the necessary information or participating in medical decision making. This critical care time is exclusive of any time devoted to teaching or for separately billable procedures. Critical Care Documentation: The patient has the following organ/system impairment(s): Acute kidney injury, Coagulopathy, Complex life-threatening medical problem(s), Respiratory failure (Acute, with Hypoxemia) and CKD, APS, HIT, HFpEF Time spent providing critical care services: 30 minutes. SIGNATURE: Sapna Wyatt MD [facility] PAGER:[phone] DATE of SERVICE: 10/25/17 TIME of SERVICE: 9:13 AM CONSULT PROG Observed: 10/25/2017 Status: COMPLETED Source: [place] 8:53 AM CLINIC OTHER CAMPUS REPOSITORY O ID: [id number] Author: Shaheen Crandall Service: Hypertension AND Nephrology Author Type: Physician Type: Consult Progress Note Filed: 10/25/2017 8:56 AM Note Text: NEPHROLOGY CONSULT PROGRESS NOTES PATIENT NAME: Paloma Cannon SERVICE DATE: 10/25/2017 SERVICE TIME: 8:53 AM CONSULTING SERVICE: NEPHROLOGY ASSESSMENT/PLAN CAPRICE on CKD 3 CAPRICE likely from contrast nephropathy. Treatment is conservative Her renal function continues to worsen. Will plan a dialysis session today via her apheresis catheter. Will order dialysis as needed until she has renal recovery. Order 2L UF Serial labs ? Hyperkalemia Will improve with HD ? Hyperphosphatemia Will improve with HD SUBJECTIVE INTERVAL HPI: still having pain. Concerned about her SOB. UOP 200cc MEDICATIONS: Current hospital medications: diphenhydrAMINE 50 mg (BENADRYL) 50 mg ORAL q 6 H PRN gabapentin 100 mg cap(s) (NEURONTIN) 100 mg OR[address] TID pantoprazole [address] 40 mg tab(s) (PROTONIX) 40 mg ORAL DAILY (6 AM) senna 17.2 mg tab(s) (SENOKOT) 17.2 mg ORAL BID docusate sodium 100 mg cap(s) (COLACE) 100 mg ORAL BID ondansetron (PF) 4 mg injection (ZOFRAN) 4 mg INTRAVENOUS q 6 H PRN 0.9% NaCl 10 mL 10 mL INTRAVENOUS q 12 H 0.9% NaCl 20 mL 20 mL INTRAVENOUS PRN 0.9% NaCl 10 mL 10 mL INTRAVENOUS q 12 H 0.9% NaCl 20 mL 20 mL INTRAVENOUS PRN HYDROmorphone WAITER/WAITRESS CABIN CLASS 0.5 mg/mL in NaCl 0.9% 100 mL INTRAVENOUS CONTINUOUS predniSONE (DELTASONE) tab(s) 80 mg 80 mg ORAL DAILY sulfamethoxazole-trimethoprim 800-160 mg 1 tablet (BACTRIM DS,SEPTRA DS) 1 tablet ORAL - hydrocortisone topical cream 1% TOPICAL BID PRN OBJECTIVE PHYSICAL EXAM: Patient Vitals for the past 24 hrs: BP Temp Temp src Pulse Resp SpO2 Height Weight 10/25/17 0600 141/70 - - 100 15 97 % 160 cm (5' 2.99) 104.1 kg (229 lb 8 oz) 10/25/17 0500 146/68 - - 93 13 - - - 10/25/17 0400 136/59 36.5 ?C (97.7 ?F) Axillary 88 13 98 % - - 10/25/17 0300 143/70 - - 87 11 98 % - - 10/25/17 0235 145/71 36.5 ?C (97.7 ?F) Oral 89 11 - - - 10/25/17 0200 128/68 - - 87 12 98 % - - 10/25/17 0100 152/89 - - 100 15 100 % - - 10/25/17 0015 154/75 36.5 ?C (97.7 ?F) Oral 108 17 - - - 10/25/17 0000 138/76 36.6 ?C (97.9 ?F) Oral 95 10 99 % - - 10/24/17 2300 110/59 - - 92 9 98 % - - 10/24/17 2200 140/74 - - 101 14 99 % - - 10/24/17 2100 147/64 - - 92 9 97 % - - 10/24/17 2000 120/77 - - 97 22 99 % - - 10/24/17 1938 - 36.5 ?C (97.7 ?F) Axillary - - - - - 10/24/17 1900 128/69 - - 89 14 96 % - - 10/24/17 1800 112/67 - - 92 15 96 % - - 10/24/17 1700 136/74 - - 92 22 99 % - - 10/24/17 1600 148/76 37 ?C (98.6 ?F) Oral 93 12 95 % - - 10/24/17 1500 129/59 - - 98 18 95 % - - 10/24/17 1415 156/72 36.4 ?C (97.5 ?F) Oral 108 25 - - - 10/24/17 1400 125/72 - - 94 13 95 % - - 10/24/17 1300 121/59 - - 91 13 97 % - - 10/24/17 1200 127/66 36.5 ?C (97.7 ?F) Oral 88 7 96 % - - 10/24/17 1100 131/71 - - 100 13 95 % - - 10/24/17 1000 120/68 - - 91 10 95 % - - 10/24/17 0900 130/62 - - 103 19 92 % - - Body mass index is 40.66 kg/(m2). Date 10/25/17 07 - 10/26/17 0659 [facility] [id number] 24 Hour Total I N T A K E Shift Total O U T P U T Urine 5 5 Tubes 0 0 Shift Total 5 5 Weight (kg) 104.1 104.1 104.1 104.1 Intake/Output 10/22/17 0700 - 10/23/17 0659 10/23/17 0700 - 10/24/17 0659 10/24/17 0700 - 10/25/17 0659 10/25/17 0700 - 10/26/17 0659 Intake (ml) 0 3152 2873 -- Output (ml) 220 634 431 5 Net (ml) -220 2518 2442 -5 GENERAL: no distress LUNGS: CTA anteriorly CARDIAC: Normal S1 and S2; no rubs, murmurs, or gallops EXTREMITIES:Trace edema DATA: Diagnostic tests reviewed for today's visit: Most recent labs CBC, Coags, BMP, Mg, Phos Recent Labs 10/25/17 0500 10/24/17 2230 10/24/17 1355 10/24/17 1200 10/24/17 0405 10/23/17 0630 WBC 21.88* 25.41* -- 26.49* < > 28.42* < > 17.22* HB 7.0* 6.7* -- 6.8* < > 6.7* < > 4.8* HCT 20.0* 19.3* -- 20.1* < > 20.0* < > 15.6* PLT 92* 106* -- 122* < > 151 < > 187 NA 125* 128* 129* -- -- -- < > 139 K 5.5* 5.0 6.0* -- -- -- < > 4.1 CHLOR 85* 86* 89* -- -- -- < > 97* CO2 25 24 27 -- -- -- < > 31 BUN 75* 77* 73* -- -- -- < > 63* CREAT 2.86* 2.77* 2.55* -- -- -- < > 1.35 GLUC 97 149* 109* -- -- -- < > 158* CA 7.8* 7.6* 7.9* -- -- -- < > 8.0* MG 2.1 -- -- -- -- 2.1 -- 2.0 P 8.6* -- -- -- -- 7.8* -- -- < > = values in this interval not displayed. Liver Function, Amylase, AND Lipase Recent Labs 10/25/17 0500 10/23/17 0630 TPROT 4.7* 4.3* ALB 3.0* 3.2* ALT 106* 9 AST 73* 14 ALKPHOS 44 34* TBILI 0.8 0.4 AMYLASE -- 47 LIPASE -- 48 ABGs SIGNATURE: Shaheen Crandall MD DATE: October 25, 2017 TIME: 8:53 AM CBC Collected: 10/25/2017 Status: F Source: [place] 8:53 AM [facility] OTHER CAMPUS REPOSITORY TYPE CODE TESTS RESULT OUT OF REFERENCE UNITS RANGE LAB WBC 3.70-11.00 k/uL WBC High 19.99 LAB RBC 3.90-5.20 m/uL Low RBC 2.28 LAB HGB 11.5-15.5 g/dL Low Hemoglobin 6.7 LAB HCT 36.0-46.0 % Low Hematocrit 19.1 LAB MCV 80.0-100.0 fL MCV 83.8 LAB MCH 26.0-34.0 pG MCH 29.4 LAB MCHC 30.5-36.0 g/dL MCHC 35.1 LAB RDWCV 11.5-15.0 % RDW-CV High 15.9 LAB PLTCT 150-400 k/uL Low Platelet Count 87 LAB MPV 9.0-12.7 fL MPV 10.9 LAB ABSNUC <0.01 k/uL Absolute High nRBC 0.22 Performed By: #### CBC #### [place] [id number] [place] [address] COMP METABOLIC PANEL Collected: 10/25/2017 Status: F Source: [place] 5:00 AM [facility] OTHER CAMPUS REPOSITORY TYPE CODE TESTS RESULT OUT OF REFERENCE UNITS RANGE LAB TP 6.0-8.4 g/dL Protein, Low Total 4.7 LAB ALB 3.5-5.0 g/dL Albumin Low 3.0 LAB CA 8.5-10.5 mg/dL Calcium, Low Total 7.8 LAB TBIL 0.0-1.5 mg/dL Bilirubin, Total 0.8 LAB ALKP 40-150 U/L Alkaline Phosphatase 44 LAB AST 7-40 U/L AST High 73 LAB GLU 65-100 mg/dL Glucose 97 LAB BUN 8-25 mg/dL BUN High 75 LAB CRET 0.70-1.40 mg/dL Creatinine High 2.86 LAB NA 132-148 mmol/L Sodium Low 125 LAB K 3.5-5.0 mmol/L Potassium High 5.5 LAB CL 98-110 mmol/L Chloride Low 85 LAB CO2 23-32 mmol/L CO2 25 LAB AGAP 9-18 mmol/L Anion Gap 15 LAB ALT 0-45 U/L ALT High 106 LAB GFRAA >60 Low eGFR- 24 Amer. LAB GFRNAA >60 . eGFR-All Low Other Races 20 Performed By: #### CMP, MG1, PHOS, CBCDIF #### [place] [phone] MAGNESIUM Collected: 10/25/2017 Status: F Source: [place] 5:00 AM [facility] [place] REPOSITORY TYPE CODE TESTS RESULT OUT OF REFERENCE UNITS RANGE LAB MG 1.7-2.6 mg/dL Magnesium 2.1 Performed By: #### CMP, MG1, PHOS, CBCDIF #### [place] [phone] PHOSPHORUS Collected: 10/25/2017 Status: F Source: [place] 5:00 AM [facility] [place] REPOSITORY TYPE CODE TESTS RESULT OUT OF REFERENCE UNITS RANGE LAB PHOS 2.5-4.5 mg/dL High Phosphorus 8.6 Performed By: #### CMP, MG1, PHOS, CBCDIF #### [place] [phone] CBC AND DIFFERENTIAL Collected: 10/25/2017 Status: F Source: [place] 5:00 AM [facility] REPOSITORY TYPE CODE TESTS RESULT OUT OF REFERENCE UNITS RANGE LAB WBC 3.70-11.00 k/uL WBC High 21.88 LAB RBC 3.90-5.20 m/uL RBC Low 2.38 LAB HGB 11.5-15.5 g/dL Hemoglobin Low 7.0 LAB HCT 36.0-46.0 % Hematocrit Low 20.0 LAB MCV 80.0-100.0 fL MCV 84.0 LAB MCH 26.0-34.0 pG MCH 29.4 LAB MCHC 30.5-36.0 g/dL MCHC 35.0 LAB RDWCV 11.5-15.0 % RDW-CV High 15.8 LAB PLTCT 150-400 k/uL Platelet Count 92 Low LAB MPV 9.0-12.7 fL MPV 11.1 LAB NEUTS % Neut% 89.0 LAB AANEUT 1.45-7.50 k/uL Abs Neut High 19.47 LAB LYMPHS % Lymph% 1.0 LAB AALYMP 1.00-4.00 k/uL Abs Lymph Low 0.22 LAB MONOS % [place]% 9.0 LAB AAMONO <0.87 k/uL Abs [place] High 1.97 LAB EOS % Eosin% 0.0 LAB AAEOS <0.46 k/uL Abs Eosin 0.00 LAB BASOS % Baso% 0.0 LAB AABASO <0.11 k/uL Abs Baso 0.00 LAB ABIMMG k/uL ANC(includeSEG+BAN 19.47 D) LAB META % [place]% 1.0 LAB ANIIMI Anisocytosis Present LAB LFTIMI Left Shift Present LAB OVAIMI Ovalocytes Few LAB POLIMI Polychromasia Slight LAB PLTEST Platelet Estimate Platelet estimate decreased LAB DTYP DTYPE Manual Diff Performed By: #### CMP, MG1, PHOS, CBCDIF #### [place] [address] CBC Collected: 10/24/2017 Status: F Source: [place] 10:30 PM [facility] OTHER [facility] REPOSITORY TYPE CODE TESTS RESULT OUT OF REFERENCE UNITS RANGE LAB WBC 3.70-11.00 k/uL WBC High 25.41 LAB RBC 3.90-5.20 m/uL Low RBC 2.27 LAB HGB 11.5-15.5 g/dL Low Hemoglobin 6.7 LAB HCT 36.0-46.0 % Low Hematocrit 19.3 LAB MCV 80.0-100.0 fL MCV 85.0 LAB MCH 26.0-34.0 pG MCH 29.5 LAB MCHC 30.5-36.0 g/dL MCHC 34.7 LAB RDWCV 11.5-15.0 % RDW-CV High 16.0 LAB PLTCT 150-400 k/uL Low Platelet Count 106 LAB MPV 9.0-12.7 fL MPV 10.2 LAB ABSNUC <0.01 k/uL Absolute High nRBC 0.12 Performed By: #### CBC #### [id number] [place] [address] BASIC METABOLIC PANL Collected: 10/24/2017 Status: F Source: [place] 10:30 PM [facility] REPOSITORY TYPE CODE TESTS RESULT OUT OF REFERENCE UNITS RANGE LAB GLU 65-100 mg/dL Glucose High 149 LAB BUN 8-25 mg/dL BUN High 77 LAB CRET 0.70-1.40 mg/dL High Creatinine 2.77 LAB NA 132-148 mmol/L Low Sodium 128 LAB K 3.5-5.0 mmol/L Potassium 5.0 LAB CL 98-110 mmol/L Low Chloride 86 LAB CO2 23-32 mmol/L CO2 24 LAB AGAP 9-18 mmol/L Anion Gap 18 LAB CA 8.5-10.5 mg/dL Low Calcium, Total 7.6 LAB GFRAA >60 Low eGFR- 25 Amer. LAB GFRNAA >60 . Low eGFR-All Other Races 20 Performed By: #### BMP #### [place] [address] Observed: 10/24/2017 Status: F Source: [place] RESPIRATORY CULT/STAIN 8:00 PM [facility] REPOSITORY Smear Result - Many Gram negative diplococci --> ABNORMAL ALERT Moderate --> ABNORMAL ALERT Yeast --> ABNORMAL ALERT Few --> ABNORMAL ALERT Gram positive bacilli --> ABNORMAL ALERT Many P olymorphonuclear leukocytes Few Epithelial cells Culture Result - Many Moraxella catarrhalis --> ABNORMAL ALERT Beta lactamase Positive --> ABNORMAL ALERT Many Normal respiratory zoila present Performed By: #### RCULST #### [facility] [address] [place] [address] NURSING PROG Observed: 10/24/2017 Status: COMPLETED Source: [place] 7:58 PM [facility] OTHER [place] REPOSITORY HNO ID: [id number] Author: Angella SanchezRn) JEFF Barreto Service: Nursing Author Type: Registered Nurse Type: Nursing Progress Note Filed: 10/25/2017 8:08 AM Note Text: Nursing Progress Note Patient Name: Paloma Cannon Patient Location: -MICU36/[facility]-ICU-36 Daily Note: 1930- Bedside report received from off going RN and care of patient assumed. 1999- Initial assessment completed as documented. Patient up to bedside commode to void. Patient had an XL BM. Patient has Dilaudid WAITER/WAITRESS CABIN CLASS pump infusing via bolus at 0.2mg. 2020- Medications administered as ordered, please refer to MAR for full details. 2099- Patient order for blood draws discussed with Dr. Phan. Per LIP labs to drawn after 0 due to administration of Potassium reducing medications. 2229- Blood drawn and sent to lab as ordered. 2320- Patient lab results received and discussed with Dr. Phan. Order for 1 unit of PRBCs received. 0000- Patient reassessment completed as documented. No significant clinical changes noted. 1 unit of PRBCs received and infusing per protocol. Per previous patient history of adverse reaction with blood transfusion orders for IV Benadryl and Solu-cortef obtained. Please refer to Doc flow sheets for full assessment details. 0015- Patient reassessed, no transfusion reactions noted, will continue to monitor patient. 0030- Medications administered as ordered, please refer to MAR for full details for full details. 0200- Patient resting comfortably, will continue to monitor. 0235- Transfusion completed, no transfusion reaction noted. 0400- Patient reassessment completed as documented, no clinical changes noted. Blood drawn and sent to lab as ordered. Please refer to Doc flow sheets for full assessment details. 0600- Patient turned and repositioned. Medication administered as ordered, please refer to MAR for full details. 0720- Bedside report given to oncoming RN and care of patient relinquished. This note was completed by: Angella Barreto RN PROGRESS Observed: 10/24/2017 Status: COMPLETED Source: [place] 7:47 PM [facility] OTHER [facility] REPOSITORY HNO ID: [id number] Author: Radha Brown Service: Critical Care Author Type: Nurse Practitioner Type: Progress Notes Filed: 10/24/2017 7:50 PM Note Text: MICU PROGRESS NOTE WITH COORD CARE SERVICE DATE: 10/24/2017 SERVICE TIME: 929 Admission Date: 10/23/2017 Day #: 2 in the MICU. 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 She was discharged yesterday after she stabilized and reached her home around 6 PM. She started having severe left sided abdominal pain under her breast radiating up to thigh region after that and went back to OTH ED. She had a CT abdomen done at outside hospital that showed extensive retroperitoneal Hemorrhage on the left with mass effect on the left kidney. Also less extensive blood products present along the surface of the spleen and in the mesentery. She was transferred to MICU as [facility] had no beds. On arrival to MICU patient complained of severe excruciating pain in the left abdomen, 10/10 in intensity, sharp in quality radiating from Left breast to thigh region. Pain is constant per patient and only minimally improved with Dilaudid patient received in OTH. ICU course: HG 4.8, lethargic c/o left flank pain poor relief with IV fentanyl. BP low but acceptable (SBP 100-120) she received 2 units emergency blood, IR consulted, she underwent urgent L RP angiogram, found to have bleeding from multiple foci of the left L3 artery, -> embolized. Incidential finding of large ADHESIVE SPRAYER -CFV fistula, Vascular Surgery consulted -. fistula created in 2013 no need for intervention will arrange for US eval for thrombus. 10/24 HG drifting down, (expected). required 2 units PRBC today. oliguric CAPRICE, UOP 0-5 cc/hr overnight, with rising CR, potassium 6 Nephrology consulted (contrast nephropathy), conservative management, may require HD, holding today. IV hyperkalemia protocol, kayexalate repet bmp 9PM Family requests transfer to [facility] . AC on hold in setting acute bleed Assessment/Plan retroperitoneal bleed 10/23. HG 4.8, required 4 units PRBC underwent IR embolization of left lumbar artery serous output from right groin pouch placed HG continues to drift down (expected), required additional 2 units post procedure Neuro: Peripheral neuropathy left flank pain Plan: -add Gabapentin, reduced dose given renal failure -dilaudid WAITER/WAITRESS CABIN CLASS -0.2mg q 20 minutes no basal Cardiovascular: HFpEF: LVEF ~ 50% BP low on presentation in setting acute blood loss anemia Has not required pressors improved, holding antihypertensives Plan: - Amlodipine, hydralazine, currently on hold resume if pt becomes hypertensive Renal: CKD (baseline Cr ~ 1.1-1.3): Cr 1.32 upon presentation worsening renal function contrast, hyperkalemia (6) -Nephrology updated oliguric UOP 5-10cc/h poor response to low dose lasix Plan: - Monitor BUN/Cr -zuniga for accurate I/O in setting oliguric CAPRICE -Nephrology consulted -kayexalate, IV hyperkalemia protocol repeat bmp, 9PM Hematology: - 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 discharged 10/22 on fondaparinux currently on hold Plan: Consulted hematology, appreciate recs --plasmapheresis q 2 weeks and prednisone 80 mg daily; a prednisone taper by 20 mg every four days (with maintenance of prednisone 5 mg daily) plasmapheresis due Monday Prophylactic: - PPI ADHESIVE SPRAYER -CFV fistula, Vascular Surgery consulted -. fistula created in 2013 no need for intervention FULL CODE difficult airway seen and discussed with Dr Wyatt on AM and late afternoon rounds transfer orders in for transfer to [facility] Dr Womack contacting MICU staff to discuss transfer OBJECTIVE: VITAL SIGNS (last 24hrs min/max): Temp Av.5 ?C (97.7 ?F) Min: 36.3 ?C (97.3 ?F) Max: 37 ?C (98.6 ?F) Pulse Av.2 Min: 88 Max: 108 No Data Recorded Cuff BP Min: 90/55 Max: 156/72 Pain Score: 0/10 Vital signs reviewed. Relevant comments- more alert NET FLUID BALANCE Intake/Output Summary (Last 24 hours) at 10/24/17 1947 Last data filed at 10/24/17 1900 Gross per 24 hour Intake 3131 ml Output 435 ml Net 2696 ml MEDICATIONS Current hospital medications: diphenhydrAMINE 50 mg (BENADRYL) 50 mg ORAL q 6 H PRN gabapentin 100 mg cap(s) (NEURONTIN) 100 mg ORAL TID [START ON 10/25/2017] pantoprazole DR 40 mg tab(s) (PROTONIX) 40 mg ORAL DAILY (6 AM) insulin regular human 10 Units injection (short acting) (NovoLIN R,HumuLIN R) 10 Units INTRAVENOUS ONCE dextrose 50% in water 50 mL syringe 50 mL INTRAVENOUS ONCE senna 17.2 mg tab(s) (SENOKOT) 17.2 mg ORAL BID docusate sodium 100 mg cap(s) (COLACE) 100 mg ORAL BID ondansetron (PF) 4 mg injection (ZOFRAN) 4 mg INTRAVENOUS q 6 H PRN 0.9% NaCl 10 mL 10 mL INTRAVENOUS q 12 H 0.9% NaCl 20 mL 20 mL INTRAVENOUS PRN 0.9% NaCl 10 mL 10 mL INTRAVENOUS q 12 H 0.9% NaCl 20 mL 20 mL INTRAVENOUS PRN HYDROmorphone WAITER/WAITRESS CABIN CLASS 0.5 mg/mL in NaCl 0.9% 100 mL INTRAVENOUS CONTINUOUS predniSONE (DELTASONE) tab(s) 80 mg 80 mg ORAL DAILY sulfamethoxazole-trimethoprim 800-160 mg 1 tablet (BACTRIM DS,SEPTRA DS) 1 tablet ORAL -WE hydrocortisone topical cream 1% TOPICAL BID PRN INFUSIONS HYDROmorphone WAITER/WAITRESS CABIN CLASS 0.5 mg/mL Lines, Drains, and Airways Line Central Line Single Lumen Non-tunneled Left Chest -- days Dialysis / Apheresis Double Lumen Admission to Hospital Non- tunneled Left Chest -- days Peripheral 10/23/17 1235 Right Antecubital 1 day Drain Indwelling Urinary Catheter 10/23/17 0520 Assessment Zuniga 1 day Drain/Tube 10/24/17 0200 Assessment Right Groin Drain #1 less than 1 day PHYSICAL EXAM HEENT: Oral Mucosa: Moist mucous membranes Feeding Tube: No Eyes: PERRLA Neck: no JVE Cardiovascular: regular s!S2 no murmur tele SR-ST Relevant Hemodynamic Data: acceptable BP Respiratory: inspiratory wheeze RLL few crackles otherwise clear + moist cough O2 NC Abdomen: Soft, Nontender and Positive bowel sounds Extremities: Edema- Yes Peripheral Pulses- Present all extremities Skin: Abnormalities- Yes ecchymosis Neurologic: Awake, oriented, Alert, Follows commands and Moving all extremities NUTRITION: regular diet Enteral Feeds: No DATA: Diagnostic tests reviewed for today's visit: Most recent labs and imaging results. Most recent labs Most recent imaging Most recent EKG LABS: CBC, Coags, BMP, Mg, Phos Recent Labs 10/24/17 1355 10/24/17 1200 10/24/17 0840 10/24/17 0405 10/24/17 0030 10/23/17 2030 10/23/17 0630 10/22/17 0412 WBC -- 26.49* 28.08* 28.42* -- < > 23.91* < > 17.22* < > 9.05 HB -- 6.8* 7.2* 6.7* -- < > 7.5* < > 4.8* < > 7.5* HCT -- 20.1* 21.5* 20.0* -- < > 22.9* < > 15.6* < > 24.6* PLT -- 122* 140* 151 -- < > 168 < > 187 < > 163 INR -- -- -- -- -- -- -- -- -- -- 1.1 NA 129* -- -- -- 130* -- 132 -- 139 -- 138 K 6.0* -- -- -- 5.9* -- 6.2* -- 4.1 -- 3.8 CHLOR 89* -- -- -- 89* -- 90* -- 97* -- 93* CO2 27 -- -- -- 26 -- 26 -- 31 -- 34* BUN 73* -- -- -- 69* -- 66* -- 63* -- 63* CREAT 2.55* -- -- -- 2.05* -- 1.86* -- 1.35 -- 1.38* GLUC 109* -- -- -- 154* -- 172* -- 158* -- 96 CA 7.9* -- -- -- 7.8* -- 7.8* -- 8.0* -- 8.5 MG -- -- -- 2.1 -- -- -- -- 2.0 -- 2.1 P -- -- -- 7.8* -- -- -- -- -- -- 2.7 < > = values in this interval not displayed. CSF AND Dilantin Liver Function, Amylase, AND Lipase Recent Labs 10/23/17 0630 10/22/17 0412 TPROT 4.3* 5.1* ALB 3.2* 3.5* ALT 9 13 AST 14 19 ALKPHOS 34* 38 TBILI 0.4 0.4 AMYLASE 47 -- LIPASE 48 -- Cardiac Enzymes CULTURES: reviewed PATIENT CHECKLIST ? Are restraints necessary: No ? Deep vein thrombosis prophylaxis administered? No. Contraindicated. ? Stress ulcer prophylaxis? yes ? Nasogastric tube? No ? Zuniga catheter necessary? Yes ? Is central line essential? Yes ? Plan discussed with assigned RN? Yes ? Family updated within last 24 hours? Yes Critical Care Time 35 minutes. SIGNATURE: Radha Brown APRN.CNP PATIENT NAME: Paloma Cannon DATE: October 24, 2017 TIME: 7:47 PM PAGER/CONTACT #: NURSING PROG Observed: 10/24/2017 Status: COMPLETED Source: [place] 6:22 PM [facility] OTHER [facility]AMP[facility] REPOSITORY [facility] ID: [id number] Author: Dary (Rn) JEFF Mueller Service: (none) Author Type: Registered Nurse Type: Nursing Progress Note Filed: 10/24/2017 7:47 PM Note Text: Nursing Progress Note Patient Name: Paloma Cannon Patient [facility] [place] [address] Daily Note: 729 report received,pt remains on 6 LNC.Pt a/ox3 gonzales weakly.generalized edema present at the bedside heather wraps applied to both lower ext. 0800 labs sent as ordered.U/o remains low. 0830 at the bedside to examine the pt update given.Pt given K cocktail for K+ of 5.9 1200 CBC drawn. 1415 1 upc hung pt given 50 mgs Benadryl po priro to blood transfusion for itching. pt saturation in the 70's when sleeping pt placed on 55% venti-mask. 1600 1 upc completed. 1700 Repeat Potassium 6 pt given 80mgs Lasix and kxylte per order.Pt placed on 6 lnc for dinner. 1730 pt up to the bedside commode with assist of 2 ashley well.pt attempting to have a BM unsuccessful.GENERATION MECHANIC HELPER informed and orders placed. 1745 pt up in the ch from [facility]. 1800 pt remains up in the ch. in to see the pt update given.Vss.U/o remains minimal 1930 report to relief nurse. This note was completed by: Dary Mueller RN ALLIED HEALTH Observed: 10/24/2017 Status: COMPLETED Source: [place] 3:10 PM [facility] REPOSITORY HNO ID: [id number] Author: Estela Sanchez (Chaplain) Service: Spiritual Care Author Type: Financial Assistance Advisor Type: Allied Health Filed: 10/24/2017 3:14 PM Note Text: SPIRITUAL CARE PROGRESS NOTE SERVICE DATE: 10/24/2017 SERVICE TIME: 1500 Financial Assistance Advisor provided spiritual support through reflective listening and reinforcing ways pt uses to comfort and calm her self during anxiety attacks. Financial Assistance Advisor shared Psalm 23 and prayed with pt, who became tearful and expressed she had been comforted by the Psalm and the prayer. Pt expressed interest in using lavender for comfort and elementary math tutor offered to bring some lavender scented inhalers, lotions, etc., to the pt which she readily accepted. Financial Assistance Advisor will bring this to pt later this afternoon and continue support. To contact the Spiritual Care Department: Please call [phone]. SIGNATURE: Chaplain Nova PATIENT NAME: Paloma Cannon DATE: October 24, 2017 TIME: 3:10 PM PAGER/CONTACT #: [phone] BASIC METABOLIC PANL Collected: 10/24/2017 Status: F Source: [place] 1:55 PM [facility] OTHER CAMPUS REPOSITORY TYPE CODE TESTS RESULT OUT OF REFERENCE UNITS RANGE LAB GLU 65-100 mg/dL Glucose High 109 LAB BUN 8-25 mg/dL BUN High 73 LAB CRET 0.70-1.40 mg/dL High Creatinine 2.55 Result Comment: Reviewed LAB NA 132-148 mmol/L Low Sodium 129 LAB K 3.5-5.0 mmol/L High Potassium 6.0 LAB CL 98-110 mmol/L Low Chloride 89 LAB CO2 23-32 mmol/L CO2 27 LAB AGAP 9-18 mmol/L Anion Gap 13 LAB CA 8.5-10.5 mg/dL Low Calcium, Total 7.9 LAB GFRAA >60 Low eGFR- Amer. 27 LAB GFRNAA >60 . Low eGFR-All Other Races 22 Performed By: #### BMP #### [place] [id number] THROMBOGRAPH PANEL Collected: 10/24/2017 Status: F Source: [place] 1:55 PM [facility] OTHER [facility]AMPUS REPOSITORY TYPE CODE TESTS RESULT OUT OF REFERENCE UNITS RANGE LAB RTEG 4.0-10.0 min R Value 6.7 LAB MATEG 51.0-69.0 mm Maximum Low Amplitude 44.8 LAB DEGANG 47.0-74.0 deg Degree Angle 62.9 LAB LY30 0-8 % Lysis Time 30 High 8.7 LAB CITEG Coagulation Index NEG 3 LAB TEGINT Thrombograph Interp (NOTE) Result Comment: Performing Pathologist: Cassandra Raymond M.D., Ph.D. Abnormal - see comment below. A thromboelastograph (TEG) study was performed using citrate-anticoagulated whole blood. The R value, a measure of coagulation function, is within the normal range. This indicates normal coagulation function. The Maximal Amplitude (MA), a measure of platelet function, is decreased. This is indicative of platelet hypofunction. The Angle, a measure of fibrinogen function, is within the normal range. This is indicative of normal fibrinogen concentration or function. The Ly30, a measure of fibrinolysis function, is prolonged. This is indicative of increased fibrinolytic function. The Coagulation Index (CI), a measure of hemostasis function, is within the normal range. The CI is a calculated parameter based on the other TEG results. 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 Illness or Injury based on: Insufficient Energy Intake: Less than 75% energy intake compared to estimated needs for greater than or equal to 1 month Fluid Accumulation due to Malnutrition Severe NUTRITION CARE PLAN: Problem, Etiology and Signs/Symptoms: Suboptimal oral intake related to poor appetite as evidenced by poor po intake with Intervention: Diet - Regular Provide Ensure Clear and Ensure High protein at meals Provide Cranberry juice at meals Encourage good po intakes Monitor and Evaluation: Goal: Meet >75% of estimated needs Monitor fluid/electrolyte balance Monitor labs, I/Os, vital signs, weight Discharge Nutrition Recommendations: To be determined Per HPI: 27 y/o female with 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 She was discharged yesterday after she stabilized and reached her home around 6 PM. She started having severe left sided abdominal pain under her breast radiating up to thigh region after that and went back to OTH ED. She had a CT abdomen done at outside hospital that showed extensive retroperitoneal Hemorrhage on the left with mass effect on the left kidney. Also less extensive blood products present along the surface of the spleen and in the mesentery. She was transferred to MICU as [facility] had no beds. On arrival to MICU patient complained of severe excruciating pain in the left abdomen, 10/10 in intensity, sharp in quality radiating from Left breast to thigh region. Pain is constant per patient and only minimally improved with Dilaudid patient received in OTH. ? ICU course: HG 4.8, lethargic c/o left flank pain poor relief with IV fentanyl. BP low but acceptable (SBP 100-120) she received 2 units emergency blood, IR consulted, she underwent urgent L RP angiogram, found to have bleeding from multiple foci of the left L3 artery, -> embolized. Incidential finding of large ADHESIVE SPRAYER -CFV fistula, Vascular Surgery consulted -. fistula created in 2013 no need for intervention will arrange for US eval for thrombus. Present Diet Order: Regular Enteral Access: No Nutritional Intake Prior to Admission: Pt states poor appetite while on chemo and she has not been eaiting well prior to admit Unable to determine wt loss due to fluid - edema and pt states she doesn't know a dry wt GI symptoms: anorexia Abdominal Exam: abdomen is distended and bowel sounds are hyperactive Is the patient having any pain that is interfering with oral/enteral intake? No ANTHROPOMETRICS Height: 160 cm (5' 3) Admission Weight: 103.2 kg (227 lb 8.2 oz) Current Weight: 103.2 kg (227 lb 8.2 oz) Body mass index is 40.3 kg/(m2). class 3 obesity Weight has increased and decreased with change in fluid status Pt states she may have gained with + fluid Prior wt 216# Last Wt 10/23/17 : 103.2 kg (227 lb 8.2 oz) 10/22/17 : 105 kg (231 lb 7.7 oz) 10/05/17 : 101.4 kg (223 lb 8 oz) 09/27/17 : 96.6 kg (213 lb) 09/18/17 : 97.4 kg (214 lb 11.2 oz) 09/12/17 : 96.6 kg (213 lb) 09/11/17 : 92.7 kg (204 lb 4.8 oz) 09/06/17 : 98.5 kg (217 lb 2.5 oz) 08/21/17 : 92.7 kg (204 lb 6.4 oz) 07/11/17 : 106.6 kg (235 lb) 06/27/17 : 106.6 kg (235 lb) 06/20/17 : 110 kg (242 lb 8.1 oz) 06/08/17 : 110.3 kg (243 lb 2.7 oz) 05/08/17 : 111.5 kg (245 lb 12.8 oz) 04/29/17 : 114.5 kg (252 lb 6.8 oz) 03/30/17 : 114.8 kg (253 lb) 03/24/17 : 118.5 kg (261 lb 3.9 oz) 02/21/17 : 105.2 kg (232 lb) 02/10/17 : 105.3 kg (232 lb 2.3 oz) 01/18/17 : 127.5 kg (281 lb 1.4 oz) Dosing Weight: 64 kg Resting Metabolic Rate: 1732 Estimated kilocalorie needs: 1600 - 1920 kilocalories determined by 25-30 kcal/kg Estimated protein needs: 96-115 grams determined by 1.5-1.8g/kg Dosing weight Estimated fluid needs: 1600 - 1900 milliliters based on 1 mL per kcal NUTRITION FOCUSED PHYSICAL EXAM: Unable to perform exam due to patient whole body edema, anasarca, will re-attempt during reassessment. Edema 3+ generalized and 3+ bilateral lower extremities Temperature Max in 24 hours: Temp (24hrs), Av.4 ?C (97.5 ?F), Min:36.3 ?C (97.3 ?F), Max:36.6 ?C (97.9 ?F) BP 131/71 Pulse 100 Temp 36.4 ?C (97.5 ?F) (Oral) Resp 13 Ht 160 cm (5' 3) Wt 103.2 kg (227 lb 8.2 oz) SpO2 95% BMI 40.3 kg/m2 Recent Labs 10/24/17 1200 10/24/17 0405 10/24/17 0030 10/23/17 0630 GLUC -- -- -- 154* < > 158* BUN -- -- -- 69* < > 63* CREAT -- -- -- 2.05* < > 1.35 NA -- -- -- 130* < > 139 K -- -- -- 5.9* < > 4.1 CHLOR -- -- -- 89* < > 97* CO2 -- -- -- 26 < > 31 ALB -- -- -- -- -- 3.2* HB 6.8* < > 6.7* -- < > 4.8* HCT 20.1* < > 20.0* -- < > 15.6* WBC 26.49* < > 28.42* -- < > 17.22* P -- -- 7.8* -- -- -- MG -- -- 2.1 -- -- 2.0 < > = values in this interval not displayed. Potential Signs of Inflammation: leukocytosis, hyperglycemia, hypoalbuminemia and imaging studies ALLERGIES Allergen Reactions - Rhubarb Rash, Hives - Heparin Other: See Comments Per patient history of HIT - was on angiomax however then took l fondaparinux for bridging to coumadin. - Iv Contrast [Iodine] Other: See Comments shuts kidneys down per patient - Rituximab Other: See Comments Elevated cardiac enzymes Current Facility-Administered Medications: diphenhydrAMINE 50 mg (BENADRYL) 50 mg ORAL q 6 H PRN gabapentin 100 mg cap(s) (NEURONTIN) 100 mg ORAL TID ondansetron (PF) 4 mg injection (ZOFRAN) 4 mg INTRAVENOUS q 6 H PRN 0.9% NaCl 10 mL 10 mL INTRAVENOUS q 12 H 0.9% NaCl 20 mL 20 mL INTRAVENOUS PRN 0.9% NaCl 10 mL 10 mL INTRAVENOUS q 12 H 0.9% NaCl 20 mL 20 mL INTRAVENOUS PRN HYDROmorphone WAITER/WAITRESS CABIN CLASS 0.5 mg/mL in NaCl 0.9% 100 mL INTRAVENOUS CONTINUOUS predniSONE (DELTASONE) tab(s) 80 mg 80 mg ORAL DAILY sulfamethoxazole-trimethoprim 800-160 mg 1 tablet (BACTRIM DS,SEPTRA DS) 1 tablet ORAL hydrocortisone topical cream 1% TOPICAL BID PRN Intake/Output 10/22/17 0700 - 10/23/17 0659 10/23/17 0700 - 10/24/17 0659 10/24/17 0700 - 10/25/17 0659 Intake (ml) 0 3152 881 Output (ml) 220 634 145 Net (ml) -220 6010 736 MNT Billing Type: Initial Assess/15 min 5 units SIGNATURE: Micaela Rice RD, LD PATIENT NAME: Paloma Cannon DATE: October 24, 2017 TIME: 12:28 PM PAGER: For further assistance and weekends please page the Group Pager [phone] CBC Collected: 10/24/2017 Status: F Source: [facility] 12:00 PM [facility] OTHER CAMPUS REPOSITORY TYPE CODE TESTS RESULT OUT OF RANGE REFERENCE UNITS LAB WBC 3.70-11.00 k/uL High WBC 26.49 Result Comment: Result checked and verified LAB RBC 3.90-5.20 m/uL RBC Low 2.34 LAB HGB 11.5-15.5 g/dL Hemoglobin Low 6.8 LAB HCT 36.0-46.0 % Hematocrit Low 20.1 LAB MCV 80.0-100.0 fL MCV 85.9 LAB MCH 26.0-34.0 pG MCH 29.1 LAB MCHC 30.5-36.0 g/dL MCHC 33.8 LAB RDWCV 11.5-15.0 % RDW-CV High 16.2 LAB PLTCT 150-400 k/uL Platelet Low Count 122 LAB MPV 9.0-12.7 fL MPV 10.4 LAB ABSNUC <0.01 k/uL Absolute High nRBC 0.14 Performed By: #### CBC #### [place] [address] CONSULT Observed: 10/24/2017 Status: COMPLETED Source: [place] 10:03 AM [facility] REPOSITORY HNO ID: [id number] Author: Shaheen Crandall Service: Hypertension AND Nephrology Author Type: Physician Type: Consults Filed: 10/24/2017 10:19 AM Note Text: Dictation number: [id number] CAPRICE on CKD 3 CAPRICE likely from contrast nephropathy. Treatment is conservative Her renal function will hopefully improve within a few days Will give 1 dose IV Lasix 20mg to improve volume status. Consider higher Lasix doses if she does not respond Serial labs Hyperkalemia Agree with Kayexalate Hyperphosphatemia Will add PO4 binders if PO4 continues rising ALLIED HEALTH Observed: 10/24/2017 Status: COMPLETED Source: [place] 9:24 AM [facility] REPOSITORY HNO ID: [id number] Author: Allyson Sykes (Rt) Service: Radiology Author Type: Title Clerk Automobile Type: Allied Health Filed: 10/24/2017 9:24 AM Note Text: Radiology Service Progress Note PATIENT NAME: Paloma Cannon DATE OF SERVICE: October 24, 2017 TIME: 9:24 AM PATIENT IDENTITY VERIFICATION COMPLETED USING TWO (2) METHODS: Patient confirmed name verbally and ID band matches.. PATIENT GENDER DATA: Female. status: : No status: NO. PATIENT RELEVANT IMPLANT DATA REVIEWED: Not Applicable RADIOLOGY DEPARTMENT: General X-ray: Exam(s) Completed: Chest X-Ray PERIPHERAL IV DATA: Not applicable SIGNED BY: RT Mony October 24, 2017 9:24 AM XR CHEST 1V FRONTAL Observed: 10/24/2017 Status: F Source: [facility] 9:22 AM [facility] OTHER CAMPUS REPOSITORY * * *Final Report* * * DATE OF EXAM: Oct 24 2017 9:22AM FVX [id number] - XR CHEST 1V FRONTAL PORT / PROCEDURE REASON: SOB (shortness of breath) * * * * Physician Interpretation * * * * EXAMINATION: CHEST RADIOGRAPH (PORTABLE SINGLE VIEW AP) Exam Date/Time: 10/24/2017 9:22 AM Indication: SOB (shortness of breath) MQ: XCPR_5 Comparison: 10/23/2017 RESULT: Lines, tubes, and devices: A left-sided dialysis catheter and left sided central line are seen traveling to the caval atrial region Lungs and pleura: Moderate perihilar interstitial and airspace process noted likely related to volume overload. No large effusion or pneumothorax is seen Cardiomediastinal silhouette: Stable cardiomediastinal silhouette. Other: . IMPRESSION: Moderate perihilar opacities compatible with volume overload. Cardiomegaly again seen Practice Support Specialist: MURTAZA Transcribe Date/Time: Oct 24 2017 9:32A Dictated by : ENA VILLA MD This examination was interpreted and the report reviewed and electronically signed by: ENA VILLA MD on Oct 24 2017 9:35AM EST [id number] CBC Collected: 10/24/2017 Status: F Source: [facility] 8:40 AM [facility] OTHER CAMPUS REPOSITORY TYPE CODE TESTS RESULT OUT OF RANGE REFERENCE UNITS LAB WBC 3.70-11.00 k/uL High WBC 28.08 Result Comment: Result checked and verified LAB RBC 3.90-5.20 m/uL RBC Low 2.49 LAB HGB 11.5-15.5 g/dL Hemoglobin Low 7.2 LAB HCT 36.0-46.0 % Hematocrit Low 21.5 LAB MCV 80.0-100.0 fL MCV 86.3 LAB MCH 26.0-34.0 pG MCH 28.9 LAB MCHC 30.5-36.0 g/dL MCHC 33.5 LAB RDWCV 11.5-15.0 % RDW-CV High 16.3 LAB PLTCT 150-400 k/uL Platelet Low Count 140 LAB MPV 9.0-12.7 fL MPV 10.5 LAB ABSNUC <0.01 k/uL Absolute High nRBC 0.17 Performed By: #### CBC #### [facility] [address] [place] [address] THROMBOGRAPH PANEL Collected: 10/24/2017 Status: F Source: [place] 8:40 AM [facility] REPOSITORY TYPE CODE TESTS RESULT OUT OF REFERENCE UNITS RANGE LAB RTEG 4.0-10.0 min R Value Unable to assay. Specimen too old to perform test. Result Comment: Account Credited LAB MATEG 51.0-69.0 mm Maximum Amplitude Unable to assay. Specimen too old to perform test. Result Comment: Account Credited LAB DEGANG 47.0-74.0 deg Degree Angle Unable to assay. Specimen too old to perform test. Result Comment: Account Credited LAB LY30 0-8 % Unable to Lysis Time 30 assay. Specimen too old to perform test. Result Comment: Account Credited LAB CITEG Coagulation Index Unable to assay. Specimen too old to perform test. Result Comment: Account Credited LAB TEGINT Thrombograph Interp Unable to assay. Specimen too old to perform test. Result Comment: Account Credited Performed By: #### TEGPNP #### [facility] [address] [place], [place] [address] NURSING PROG Observed: 10/24/2017 Status: COMPLETED Source: [place] 7:46 AM [facility] REPOSITORY HNO ID: [id number] Author: Saundra (Rn) JEFF Choe Service: Critical Care Author Type: Registered Nurse Type: Nursing Progress Note Filed: 10/24/2017 8:08 AM Note Text: Nursing Progress Note Patient Name: Paloma Cannon [facility] Note: 1930 Report received Complete assessment to follow 1999 Complete assessment done. Pt is awake, alert, oriented x3 Dilaudid WAITER/WAITRESS CABIN CLASS controlling pt's pain at this time NSR to BST on social service technician. Speeh clear VSS Pt is on O2 at 6 L NC SAO2 mid to upper 90's Respiratory rate will decrease to 6 when the pt is sleeping. Minimal yellow urine noted. Moderate amount of serous drainage from the right groin Site from IR. Taking po fluids without difficulty. 1999 Blood cultures drawn by the guest history clerk as ordered 2029 CBC., BMP, Blood cultures and Thrombograph blood work drawn from the Samantha catheter and sent to lab as ordered. 2234 Ese Arias from labs called regarding the Thrombograph panel. Stated that this is a mail out to [facility] and lab would need to be redrawn in the am . Dr Mallory notified. Lab also informed this RN that they were just running the BMP and CBC that was drawn at 2029 Dr Mallory is also notified of this. 2305 Lab result of potassium of 6.2 reported by Freddy Gaitan Reported to Dr Mallory at this time. 2332 Pt complaining of nausea. Pt medicated with Zofran 4 mg IV as ordered Will evaluate for effectiveness. 0005 Complete assessment done. No further nausea noted 0017 Pt medicated with 60mg Torsemide which is the dose the pt takes at home. 0020 Pt medicated with Benadryl 25mg po for itchyness. 0030 CBC drawn at this time from the Samantha catheter as ordered 0100 BMP drawn from the Samantha catheter as ordered. 0333 Lasix 20mg IV given at this time as ordered. '0400 Pt remains edematous and anuric at this time. No change in assessment noted Rt groin puncture site from IR with colostomy bag to collect the serous drainage. 0410 CBCPhos and MAG drawn from the Samantha catheter and sent to lab as ordered. 0430 One unit of PRBCs started at this time as ordered. 0515 KUB completed as ordered Drainage from the Rt groin puncture site sent to U/A and pH . 0600 500ml LR fluid bolus started at this time as ordered. 0730 Report given to relief RN . Updated on assessment and events of the shift mechanic. 0735 PRBC's completed at this time. No adverse reaction noted. This note was completed by: Saundra Choe RN PROGRESS Observed: 10/24/2017 Status: COMPLETED Source: [facility] 7:25 AM [facility] OTHER CAMPUS REPOSITORY HNO ID: [id number] Author: Sapna Wyatt Service: Critical Care Author Type: Physician Type: Progress Notes Filed: 10/24/2017 12:36 PM Note Text: DR. FRED STONE, SR. HOSPITAL STAFF PHYSICIAN NOTE OF PERSONAL INVOLVEMENT IN CARE I have seen and examined the patient, reviewed the progress note completed by the nurse practitioner, and agree with the history, exam, and assessment/plan, with the following exceptions/additions. If there are fernandes items that I feel deserve particular emphasis, I have outlined them below. Please refer to the nurse practitioner note for full details, including a summary of our mutually agreed upon findings, assessment/plan, and recommendations. IMPRESSION: 27 y.o. 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 ? PLAN: ? Acute hypoxic resp failure - check CXR, currently on 6L O2 NC, titrate O2 down as able. HFpEF - holding home diuretics given acute bleed. Acute blood loss anemia due to retroperitoneal bleeding from L3 lumbar artery - s/p embolization by IR 10/23, transfuse PRN, will need platelets + FFP if requires massive transfusion. Has serosanguinous drainage from femoral site, feel this is due to her edema, feel this is less likely urine as she currently has CAPRICE (see below). HIT - follow labs, Heme following. APS s/p DAH - holding AC (see above). Hematology following. Continue Prednisone taper + Bactrim PPx. Will need routine plasmapheresis 10/30 and if requires hospitalization until then will need transfer to [facility] [place]. HTN - hold home meds for now. CAPRICE on CKD 3 - baseline Cr 1.4, likely due to contrast from procedure yesterday which was required due to life-threatening hemorrhage. Continue diuresis, Nephrology consult. Hyperkalemia - due to above, medical tx. Neuropathy - resume Gabapentin at low dose adjusting for renal function (home med). GERD - PPI (home med). DVT PPx - SCD's, holding meds due to acute hemorrhage. Patient/Family Updated: d/w pt at bedside. This patient has a high probability of sudden, clinically significant deterioration, which requires the highest level of physician preparedness to intervene urgently. I managed/supervised life or organ supporting interventions that required frequent physician assessment. I have devoted my full attention to the direct care of this patient for the amount of time indicated below. I have included time that I spent with family or surrogates only if the patient was incapable of providing the necessary information or participating in medical decision making. This critical care time is exclusive of any time devoted to teaching or for separately billable procedures. Critical Care Documentation: The patient has the following organ/system impairment(s): Acute blood loss, Acute kidney injury, Complex life-threatening medical problem(s), Respiratory failure (with Hypoxemia) and APS, HIT Time spent providing critical care services: 30 minutes. SIGNATURE: Sapna Wyatt MD [facility] PAGER:[phone] DATE of SERVICE: 10/24/17 TIME of SERVICE: 12:36 PM CONSULT Observed: 10/24/2017 Status: COMPLETED Source: [place] 5:57 AM [facility] REPOSITORY [facility] ID: [id number] Author: Lydia Roque Service: Vascular Surgery Author Type: Physician Type: Consults Filed: 11/10/2017 3:59 PM Note Text: [facility] INITIAL CONSULT Service Date: 10/24/2017 Admit Date: 10/23/2017 Service Time: 6:12 AM LOS: 1 Requesting Provider: Sapna Wyatt Vascular Physician: Lydia Mancini MD Subjective Chief Complaint: Lower extremity AV fistula found during IR procedure HPI: Paloma Cannon is a 27 year old White female referred by Sapna Wyatt for an opinion regarding management of LE AVF. Ms. 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 She is now s/p IR embolization of left L3 lumbar artery. Vascular surgery is consulted for ADHESIVE SPRAYER to CFV fistula found during procedure. Per patient she has had these fistula since her multiple surgeries in [place] in 2013. After the surgery, she experiences lower extremity swelling, however she is able to ambulate. Her most recent DVT can was in 10/14/17 in [facility] and was negative for acute DVT. She has been on fondaparinux during her hospitalization(history of HIT) and prior to that has been mainatained on coumadin. Presently, she has no acute lower extremity symptoms except the right groin access site painful. Summary of Operations in [facility]: 10/02/2013 OPERATION PERFORMED: 1. Urgent control of right groin bleeding. 2. Removal of lysis catheters and sheath from below-knee popliteal vein. 3. Closure of below-knee popliteal incision. 4. Groin closures with VAC dressings. 10/01/2013Operation/Procedure performed: right popliteal cut down, trerotola, trellis, and AngioJet of the femoropopliteal venous system, and placement of Cragg James lysis catheters (left common femoral and right femoropopliteal) 09/30/2013 Operation/Procedure performed: Left iliac vein lysis check, venography, manual suction thrombectomy, dae balloon thrombectomy, left iliac vein stent 09/27/2013Operation/Procedure performed: 1. Right iliocaval venogram 2. Removal of right iliocaval lysis catheter 3. Left groin exposure 4. Left iliac and IVC angiojet 5. Left SFA-saphenous AV fistula 6. Placement of left iliocaval lysis catheter 09/27/2013 Operation/Procedure performed: 1. Right groin exploration 2. Bovine pericardial patch venoplasty of previous femoral vein cannulation site 3. Creation of SFA to first branch of saphenous vein fistula using 4mm non-ringed PTFE 4. Mechanical suction and Dae thrombectomy of complete thrombosis of caval and right sided iliac stents 5. VAC dressing closure 09/27/2013 Operation/Procedure performed: 1. Bilateral common femoral venous access using ultrasound guidance 2. Diagnsotic venography 3. Trellis and mechanical suction thrombectomies of bilateral iliac veins and IVC 4. Placement of Cragg James lysis catheters 65x20 in each iliac vein extending into the IVC 09/25/2013 OPERATION PERFORMED: 1. Venogram of the bilateral common iliac veins and the inferior vena cava. 2. Right common iliac / external iliac vein stenting with Wallstents (14x60 distally, 16x60 proximally) 3. Left common iliac / external iliac vein stenting with Wallstents (14x60 distally, 16x60 proximally) 3. Removal of inferior vena cava filter via left IJ puncture. 4. Intravascular ultrasound of the inferior vena cava. 5. Placement of an Endologix AFX endograft, BA25-80/L16-40, at the inferior vena cava bifurcation. 6. Placement of an inferior vena cava filter via left femoral vein approach. 09/19/2013 OPERATION PERFORMED: 1. Angiovac assisted IVC thrombectomy utilizing venovenous bypass. 2. Cannulation of left internal jugular vein with 17-[place] Bio-Med[employer] arterial cannula. 3. Cannulation of right internal jugular vein with 26-[place] GORE DrySeal for the Angiovac suction catheter. 4. Placement of left subclavian vein triple-lumen sheath for venous access. 5. Placement of multiple sheaths into bilateral femoral veins as well as an arterial line into the left femoral artery. Location: Bilateral lower extremity Quality: chronic Severity: moderate Duration: several years Timing: following surgery PAST MEDICAL HISTORY Diagnosis Date - (HFpEF) heart failure with preserved ejection fraction (HCC) 02/20/2016 HFpEF w last EF 50-55% On Torsemide, coreg, hydralazine and imdur at home No signs of acute exacerbation on admission Plan: -Continue home medications - Anasarca 11/29/2013 - Anemia 03/10/2015 Chronic microcytic anemia. 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 Thrombosis, and Diffuse Alveolar Hemorrhage. On Warfarin and PLEX (Twice Weekly)? Plan: -Warfarin 5mg qday-holding for planned EGD on 01/11 d/t supra therapeutic INR -Cont. PO Prednisone 10mg MWFS and 5mg TTS -Pantoprazole for GI PPx of Above -Apharesis was supposed to be yesterday, will contact plasmapheresis team on recommendations - Antiphospholipid syndrome (HCC) - Catastrophic Antiphospholipid antibody syndrome 11/09/2013 - Cholelithiasis 01/11/2017 Likely cause of recent pancreatitis. Plan: Per general surgery, no acute surgical intervention at this time. Will await results of EGD. If active gastritis, favor outpatient cholecystectomy. If no active gastritis on EGD, plan for cholecystectomy this admission. 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 - PAST SURGICAL HISTORY OF Adenoidectomy - PICC LINE INSERT/CONSULT 11/29/2013 - PICC LINE INSERT/CONSULT 03/10/2015 - PICC LINE INSERT/CONSULT 02/20/2016 FAMILY HISTORY Problem Relation Age of Onset - Breast Cancer Mother spine BRCA neg - Ovarian cyst [OTHER] Mother - ovarian cyst [OTHER] Sister - Thyroid No Family History Social History Substance Use Topics - Smoking status: Never Smoker - Smokeless tobacco: Never Used - Alcohol use No Prescriptions Prior to Admission: predniSONE (DELTASONE) 20 mg tablet Take 4 tablets by mouth once daily for 8 days. Disp: 32 tablet Rfl: 0 COMPOUNDED PRESCRIPTION Outpatient physical therapyPlease call [phone] to make an appointment Disp: 1 Each Rfl: 0 fondaparinux (ARIXTRA) 2.5 mg/0.5 mL syrg Inject 1.5 mL subcutaneously q 24 HR for 10 days. Short term medication to cover while warfarin was on hold Disp: 15 mL Rfl: 0 amLODIPine (NORVASC) 5 mg tablet Take 5 mg by mouth twice daily. Hold for SBP <120 Disp: Rfl: ondansetron (ZOFRAN, HYDROCHLORIDE,) 8 mg tablet Take 8 mg by mouth every 8 hours as needed for Nausea/Vomiting. Disp: Rfl: pantoprazole DR (PROTONIX) 40 mg tablet Take 40 mg by mouth daily at bedtime. Disp: Rfl: cetirizine (ZYRTEC) 10 mg tablet Take 10 mg by mouth twice daily. Disp: Rfl: gabapentin (NEURONTIN) 100 mg capsule Take 400mg in the morning Take 300 mg in the afternoon Take 300mg in the evening Patient may change dose based on pain Disp: 360 capsule Rfl: 2 Unknown at Unknown time torsemide (DEMADEX) 20 mg tablet Take 20 mg by mouth once daily as needed (takes 20-60 mg as needed for chronic edema). Disp: Rfl: Unknown at Unknown time sulfamethoxazole-trimethoprim (BACTRIM DS) 800-160 mg per tablet Take 1 tablet by mouth every Monday,Monday,Monday. Disp: 36 tablet Rfl: 3 Unknown at Unknown time fluticasone (FLONASE) 50 mcg/actuation nasal spray Use 1-2 Sprays in each nostril once daily as needed for Cold/Allergy Symptoms (starting in allergy season). Disp: Rfl: Unknown at Unknown time senna 8.6 mg tab Take 1 tablet by mouth twice daily as needed. Disp: 60 tablet Rfl: 0 Unknown at Unknown time Current hospital medications: furosemide 20 mg injection (LASIX) 20 mg INTRAVENOUS ONCE lactated ringers 500 mL iv bolus 500 mL INTRAVENOUS ONCE ondansetron (PF) 4 mg injection (ZOFRAN) 4 mg INTRAVENOUS q 6 H PRN pantoprazole 40 mg injection (PROTONIX) 40 mg INTRAVENOUS DAILY (6 AM) 0.9% NaCl 10 mL 10 mL INTRAVENOUS q 12 H 0.9% NaCl 20 mL 20 mL INTRAVENOUS PRN 0.9% NaCl 10 mL 10 mL INTRAVENOUS q 12 H 0.9% NaCl 20 mL 20 mL INTRAVENOUS PRN HYDROmorphone WAITER/WAITRESS CABIN CLASS 0.5 mg/mL in NaCl 0.9% 100 mL INTRAVENOUS CONTINUOUS predniSONE (DELTASONE) tab(s) 80 mg 80 mg ORAL DAILY sulfamethoxazole-trimethoprim 800-160 mg 1 tablet (BACTRIM DS,SEPTRA DS) 1 tablet ORAL diphenhydrAMINE 25 mg (BENADRYL) 25 mg ORAL q 6 H PRN hydrocortisone topical cream 1% TOPICAL BID PRN torsemide 60 mg tab(s) (DEMADEX) 60 mg ORAL DAILY PRN ALLERGIES Allergen Reactions - Rhubarb Rash, Hives - Heparin Other: See Comments Per patient history of HIT - was on angiomax however then took l fondaparinux for bridging to coumadin. - Iv Contrast [Iodine] Other: See Comments shuts kidneys down per patient - Rituximab Other: See Comments Elevated cardiac enzymes COMPLETE REVIEW OF SYSTEMS CONSTITUTIONAL: No weight loss, malaise or fevers. HEENT: Negative for frequent or significant headaches, No changes in hearing or vision, no nose bleeds or other nasal problems. RESPIRATORY: Negative for cough, wheezing, or shortness of breath CARDIOVASCULAR: Negative for chest pain, leg swelling or palpitations GI: Negative for abdominal discomfort, blood in stools or black stools or change in bowel habits. : No history of dysuria, frequency, or incontinence and No difficulty urination, nocturia >1 times per night or hematuria. MUSCULOSKELETAL: Negative for joint pain or swelling, back pain or muscle pain. ENDOCRINE: Negative for cold or heat intolerance, polyuria, polydipsia and goiter HEMATOLOGIC/LYMPHATIC: Negative for prolonged bleeding, bruising easily or swollen nodes. NEUROLOGIC: No history or headaches, syncope, paralysis, seizures or tremors. INTEGUMENTARY: Negative for lesions, rash, and itching. Objective PHYSICAL EXAM Physical Exam Performed Patient Vitals for the past 24 hrs: BP Temp Temp src Pulse Resp SpO2 Height Weight 10/24/17 0300 90/55 - - 96 7 93 % - - 10/24/17 0200 (!) 93/46 - - 90 6 91 % - - 10/24/17 0100 110/55 - - 92 16 96 % - - 10/24/17 0000 114/68 - - 104 19 97 % - - 10/23/17 2300 112/80 - - 97 8 93 % - - 10/23/17 2200 112/65 - - 93 9 95 % - - 10/23/17 2100 124/72 - - 90 11 95 % - - 10/23/17 2000 110/62 36.3 ?C (97.3 ?F) Oral 98 9 91 % - - 10/23/17 1930 (!) 99/49 - - 110 11 (!) 84 % - - 10/23/17 1900 (!) 107/42 - - 102 12 92 % - - 10/23/17 1830 115/61 - - 106 9 93 % - - 10/23/17 1800 112/73 - - 105 (!) 5 94 % - - 10/23/17 1730 131/83 - - 103 10 94 % - - 10/23/17 1700 129/115 - - 101 18 98 % - - 10/23/17 1630 151/78 - - 97 9 98 % - - 10/23/17 1600 150/75 36.4 ?C (97.5 ?F) Oral 104 10 97 % - - 10/23/17 1530 131/94 - - 104 16 97 % - - 10/23/17 1500 114/99 - - 98 10 95 % - - 10/23/17 1445 112/73 - - 100 9 89 % - - 10/23/17 1430 122/66 - - 98 9 91 % - - 10/23/17 1415 145/85 - - 95 11 95 % - - 10/23/17 1400 124/78 - - 93 14 93 % - - 10/23/17 1345 141/87 - - 99 15 92 % - - 10/23/17 1330 141/87 - - 88 13 96 % - - 10/23/17 1324 - - - - 14 97 % - - 10/23/17 1315 165/76 - - 95 17 94 % - - 10/23/17 1313 - - - 100 16 93 % - - 10/23/17 1300 161/74 - - 99 13 93 % - - 10/23/17 1245 158/80 - - 97 15 95 % - - 10/23/17 1230 135/74 - - 98 20 95 % - - 10/23/17 1215 - - - 114 24 (!) 86 % - - 10/23/17 1212 156/84 36.5 ?C (97.7 ?F) Axillary 102 - - - - 10/23/17 1132 147/76 36.4 ?C (97.5 ?F) Axillary 95 - - - - 10/23/17 1112 144/88 36.5 ?C (97.7 ?F) Axillary 94 - - - - 10/23/17 1047 135/84 36.5 ?C (97.7 ?F) Axillary 98 - - - - 10/23/17 1032 144/90 36.7 ?C (98.1 ?F) Axillary 98 - - - - 10/23/17 1000 131/69 - - 106 17 94 % - - 10/23/17 0949 138/78 36.4 ?C (97.5 ?F) Axillary 107 - - - - 10/23/17 0930 113/67 - - 104 14 100 % - - 10/23/17 0927 119/74 36 ?C (96.8 ?F) Axillary 99 13 - - - 10/23/17 0913 118/73 36.2 ?C (97.2 ?F) Axillary 102 13 - - - 10/23/17 0900 111/70 - - 102 8 100 % - - 10/23/17 0852 134/68 36 ?C (96.8 ?F) Axillary 102 12 - - - 10/23/17 0832 125/68 36.5 ?C (97.7 ?F) Axillary 100 10 - - - 10/23/17 0817 119/72 36.4 ?C (97.5 ?F) Oral 106 6 - - - 10/23/17 0800 110/60 36.4 ?C (97.5 ?F) Oral 106 18 99 % - - 10/23/17 0730 118/57 - - 100 15 97 % - - 10/23/17 0700 117/69 - - 101 13 98 % - - 10/23/17 0645 122/70 - - 99 16 96 % - - 10/23/17 0630 115/70 - - 99 13 97 % - - 10/23/17 0615 125/69 - - 100 14 99 % - - 10/23/17 0600 126/76 - - 100 17 99 % 160 cm (5' 3) 103.2 kg (227 lb 8.2 oz) Intake/Output Summary (Last 24 hours) at 10/24/17 0557 Last data filed at 10/24/17 0500 Gross per 24 hour Intake 2423 ml Output 674 ml Net 1749 ml CONSTITUTIONAL: Obese and No acute distress NEUROLOGIC/PSYCHIATRIC: Oriented to time, place AND person and Alert HEENT: Fair dentition and Strabismus LUNGS: Respiratory effort: normal HEART: Regular rate AND rhythm ABDOMEN: Soft and Non-tender INTEGUMENTARY: Wound - No SURGICAL SITES: Groin - right; Clean, dry and intact MUSCULOSKELETAL: No deformities Pulses/Signals: Carotid Brachial Radial Ulnar Femoral Popliteal Dorsalis Pedis Posterior Tibial Peroneal Right Palpable +2 Palpable +2 Palpable +2 Palpable +2 Right groin access site c/d/i Biphasic Signal Biphasic Signal Biphasic Signal Left Palpable +2 Palpable +2 Palpable +2 Palpable +2 Palpable +1 Biphasic Signal Biphasic Signal Biphasic Signal Does the patient have critical limb ischemia, rest pain, tissue loss or gangrene?: No DATA: Laboratory: Recent Labs 10/24/17 0405 10/24/17 0020 10/23/172029 WBC 28.42* 26.37* 23.91* HB 6.7* 6.9* 7.5* HCT 20.0* 20.7* 22.9* PLT 151 151 168 Recent Labs 10/24/17 0405 10/24/17 0030 10/23/17 2030 10/23/17 0630 10/22/17 0412 NA -- 130* 132 139 138 K -- 5.9* 6.2* 4.1 3.8 BUN -- 69* 66* 63* 63* CREAT -- 2.05* 1.86* 1.35 1.38* GLUC -- 154* 172* 158* 96 MG 2.1 -- -- 2.0 2.1 Recent Labs 10/22/17 0412 INR 1.1 Radiology: I have personally reviewed the following images/data: IR Angiography Angiograms of the left common, external iliac and left common femoral artery demonstrates rapid opacification of the right common femoral vein, distal external iliac vein stent appears patent. ?Also seen are multiple body wall venous collaterals that opacify with arterial injection. ?Magnified angiogram performed in the left inguinal region demonstrates arteriovenous fistula connecting the distal aspect of the common femoral artery medially with the common femoral vein. ?This fistula overlies approximately the region of the greater trochanter. ? Given its location across the joint, it was determined this fistula was not amenable to endovascular stenting. Angiograms of the left renal artery, left L1, L2 angiograms were unremarkable. ?DSA of the left L3 lumbar artery demonstrates multiple foci of extravasation, including a large area of pooling in the left lower quadrant from one of the inferior second order branches of the L3 lumbar artery. ?L4 angiogram was unremarkable. INTERVENTION: The Cobra catheter was then positioned at the ostium of the left L3 lumbar artery. ?2.4 [place] microcatheter system was then used to select a second order branch of the L3 artery. ?Gelfoam embolization of this branch was performed until stasis was achieved. ?Next, multiple 2 mm to 3 mm diameter 018 Concerto coils were then placed. ?Repeat DSA from the proximal lumbar artery demonstrated no further extravasation. The patient tolerated the procedure well. ?There were no significant complications and no other complications during the procedure. Impression/Recommendations Impression: Ms. 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 She is now s/p IR embolization of left L3 lumbar artery. Vascular surgery is consulted for lower extremity fistula found during procedure. - AVF present in BLE since 2013, it was surgically created, no interventions warranted at this time. - No signs of high output cardiac failure, her low EF possibly related to rituximab cardiotoxic effects(was on rituxan for APLS) Plan: - No acute surgical intervention, AV fistula seen during IR corresponds to surgically created AV fistula(2013). Will review images with staff - Obtain bilateral venous duplex to evaluate patency of venous system in bilateral lower extremity - Consider limb elevation and HEATHER bandage to relieve swelling - OOB and ambulate as able, PT/OT - Resume anticoagulation when able from RP bleeding standpoint - Plans will be discussed with staff Addendum: Venous study shows patent venous system. BLE AVF created to improve flow in common iliac veins and IVC to prevent in-stent thrombosis. Do not ligate/intervene. Continue supportive care No other vascular interventions needed Resume anticoagulation when appropriate Please call with questions and concerns No problems updated. SIGNATURE: Adriana Reeves MD PATIENT NAME: Paloma Cannon DATE: October 24, 2017 TIME: 5:57 AM PAGER/CONTACT #: [id number] Agree patrick parker. Pt seen and examined. Av fistulae in groin as noted. No sign of severe pain or active bleeding. Images reviewed. These fistulae are helpful for her prior venous interventions. Thus, should be left in place and simply observed. Please call for further concerns. thx.Lydia Mancini MD XR ABDOMEN 1V SUPINE Observed: 10/24/2017 Status: F Source: [place] 5:26 AM [facility] OTHER CAMPUS REPOSITORY * * *Final Report* * * DATE OF EXAM: Oct 24 2017 5:26AM [id number] - XR ABDOMEN 1V SUPINE / PROCEDURE REASON: Follow up * * * * Physician Interpretation * * * * XR ABDOMEN 1V SUPINE INDICATION: Follow-up COMPARISON: 10/13/[address] 02/03/2017 TECHNIQUE: Portable AP supine abdomen, 2 films. FINDINGS: See impression. IMPRESSION: Stable endovascular stent distal inferior vena cava and bilateral iliac veins. New embolization coils present to the left of the L3-4 level. Bowel gas pattern is nonspecific and nonobstructive with moderate to large amount of colonic stool. No air dilated small bowel. Enteric tube has been removed. Practice Support Specialist: PSCB Transcribe Date/Time: Oct 24 2017 5:33A Dictated by : WILFRED CURRY MD This examination was interpreted and the report reviewed and electronically signed by: WILFRED CURRY MD on Oct 24 2017 5:35AM EST [id number] ALLIED HEALTH Observed: 10/24/2017 Status: COMPLETED Source: [place] 5:16 AM [facility] OTHER CAMPUS REPOSITORY HNO ID: [id number] Author: Aline (Rt) Allyson Munoz Service: Radiology Author Type: Title Clerk Automobile Type: Allied Health Filed: 10/24/2017 5:27 AM Note Text: Radiology Service Progress Note PATIENT NAME: Paloma Cannon DATE OF SERVICE: October 24, 2017 TIME: 5:27 AM PATIENT IDENTITY VERIFICATION COMPLETED USING TWO (2) METHODS: Patient confirmed name verbally and ID band matches.. PATIENT GENDER DATA: Female. status: : No status: N/A PATIENT RELEVANT IMPLANT DATA REVIEWED: Not Applicable RADIOLOGY DEPARTMENT: General X-ray: Exam(s) Completed: Abdomen X-Ray Abdomen PERIPHERAL IV DATA: Not applicable SIGNED BY: RT Richardson October 24, 2017 5:27 AM URINALYSIS WITH Collected: 10/24/2017 Status: F Source: [place] MICROS[facility] 5:00 AM [facility] REPOSITORY TYPE CODE TESTS RESULT OUT OF RANGE REFERENCE UNITS LAB UCOL Yellow Color Abnormal Straw Alert LAB [facility] Clear Clarity Abnormal Hazy Alert LAB UGLUC Negative mg/dL Glucose, Abnormal Urine 150 Alert LAB UBIL Negative Bilirubin, Urine Negative LAB UKET Negative Ketones, Urine Negative LAB [facility] 1.005-1.030 Specific [place], Ur 1.009 LAB UHGB Negative Abnormal Hemoglobin/Blood, Large Alert Ur LAB UPH 5.0-8.0 High pH 9.0 LAB UPROT Negative mg/dL Protein, Abnormal Urine 100 Alert LAB UUROB <2.0 Urobilinogen <2.0 LAB UNITR Negative Nitrites Negative LAB ULKEST Negative Leukest Negative LAB UCOM Comments SEE COMMENT Result Comment: Microscopic Examination Performed LAB UWBC Negative /HPF WBC Negative LAB URBC Negative /HPF Abnormal Alert RBC Many LAB MUCSI Mucus Present Performed By: #### UAWMIC #### [place] [address] CBC Collected: 10/24/2017 Status: F Source: [place] 4:05 AM [facility] REPOSITORY TYPE CODE TESTS RESULT OUT OF REFERENCE UNITS RANGE LAB WBC 3.70-11.00 k/uL WBC High 28.42 LAB RBC 3.90-5.20 m/uL Low RBC 2.33 LAB HGB 11.5-15.5 g/dL Low Hemoglobin 6.7 LAB HCT 36.0-46.0 % Low Hematocrit 20.0 LAB MCV 80.0-100.0 fL MCV 85.8 LAB MCH 26.0-34.0 pG MCH 28.8 LAB MCHC 30.5-36.0 g/dL MCHC 33.5 LAB RDWCV 11.5-15.0 % RDW-CV High 17.4 LAB PLTCT 150-400 k/uL Platelet Count 151 LAB MPV 9.0-12.7 fL MPV 10.1 LAB ABSNUC <0.01 k/uL Absolute High nRBC 0.18 Performed By: #### CBC, MG1, PHOS #### [place] [phone] MAGNESIUM Collected: 10/24/2017 Status: F Source: [place] 4:05 AM [facility] OTHER [place] REPOSITORY TYPE CODE TESTS RESULT OUT OF REFERENCE UNITS RANGE LAB MG 1.7-2.6 mg/dL Magnesium 2.1 Performed By: #### CBC, MG1, PHOS #### [place] [phone] PHOSPHORUS Collected: 10/24/2017 Status: F Source: [place] 4:05 AM [facility] REPOSITORY TYPE CODE TESTS RESULT OUT OF REFERENCE UNITS RANGE LAB PHOS 2.5-4.5 mg/dL High Phosphorus 7.8 Performed By: #### CBC, MG1, PHOS #### [place] [phone] BASIC METABOLIC PANL Collected: 10/24/2017 Status: F Source: [place] 12:30 AM [facility] OTHER [place] REPOSITORY TYPE CODE TESTS RESULT OUT OF REFERENCE UNITS RANGE LAB GLU 65-100 mg/dL Glucose High 154 LAB BUN 8-25 mg/dL BUN High 69 LAB CRET 0.70-1.40 mg/dL High Creatinine 2.05 LAB NA 132-148 mmol/L Low Sodium 130 LAB K 3.5-5.0 mmol/L High Potassium 5.9 LAB CL 98-110 mmol/L Low Chloride 89 LAB CO2 23-32 mmol/L CO2 26 LAB AGAP 9-18 mmol/L Anion Gap 15 LAB CA 8.5-10.5 mg/dL Low Calcium, Total 7.8 LAB GFRAA >60 Low eGFR- 35 Amer. LAB GFRNAA >60 . Low eGFR-All Other Races 29 Performed By: #### BMP #### [place] [id number] [place] [address] CBC Collected: 10/24/2017 Status: F Source: [place] 12:20 AM [facility] OTHER CAMPUS REPOSITORY TYPE CODE TESTS RESULT OUT OF REFERENCE UNITS RANGE LAB WBC 3.70-11.00 k/uL WBC High 26.37 LAB RBC 3.90-5.20 m/uL Low RBC 2.41 LAB HGB 11.5-15.5 g/dL Low Hemoglobin 6.9 LAB HCT 36.0-46.0 % Low Hematocrit 20.7 LAB MCV 80.0-100.0 fL MCV 85.9 LAB MCH 26.0-34.0 pG MCH 28.6 LAB MCHC 30.5-36.0 g/dL MCHC 33.3 LAB RDWCV 11.5-15.0 % RDW-CV High 17.3 LAB PLTCT 150-400 k/uL Platelet Count 151 Result Comment: Reviewed Sample checked for a clot. LAB MPV 9.0-12.7 fL MPV 10.8 LAB ABSNUC <0.01 k/uL High Absolute nRBC 0.19 Performed By: #### CBC #### [place] [address] HOSP Observed: 10/24/2017 Status: COMPLETED Source: [place] 12:00 AM [facility] REPOSITORY Patient:Paloma Cannon MRN: <[id number]> Height:5' 3(1.6 m) Weight:251 lb 15.8 oz (114.3 kg) Outpatient Medications as of 10/26/17: diphenhydrAMINE (BENADRYL) 50 mg capsule gabapentin (NEURONTIN) 100 mg capsule predniSONE (DELTASONE) 20 mg tablet ondansetron (ZOFRAN, HYDROCHLORIDE,) [address] (PROTONIX) 40 mg tablet sulfamethoxazole-trimethoprim (BACTRIM DS) 800-160 mg per tablet fluticasone (FLONASE) 50 mcg/actuation nasal spray senna 8.6 mg tab Admission/Clinic Administered Medications as of 10/26/17: senna 8.6 mg tab(s) (SENOKOT) pantoprazole DR 40 mg tab(s) (PROTONIX) ondansetron 8 mg tab(s) (ZOFRAN) diphenhydrAMINE 50 mg (BENADRYL) sulfamethoxazole-trimethoprim 400-80 mg 2 tablet (BACTRIM,SEPTRA) predniSONE (DELTASONE) tab(s) 80 mg gabapentin 100 mg cap(s) (NEURONTIN) hydrocortisone sodium succinate (PF) 100 mg injection (Solu-CORTEF) sevelamer carbonate 800 mg tab(s) (RENVELA) HYDROmorphone WAITER/WAITRESS CABIN CLASS 0.5 mg/mL in NaCl 0.9% 100 mL diphenhydrAMINE 50 mg injection (BENADRYL) NaCl 0.9% iv infusion iv contrast (radiology procedure) prochlorperazine 5 mg injection (COMPAZINE) 0.9% NaCl 3-5 mL insulin regular human injection (short acting) (NovoLIN R,HumuLIN R) insulin regular 250 units in NaCl 0.9% 250 mL iv infusion - ICU NOMOGRAM insulin regular human iv bolus 2-10 Units dextrose 50% in water 25-50 mL syringe dextrose 40 % 15 g glucagon 1 mg injection (GLUCAGEN) acetaminophen 650 mg tab(s) (TYLENOL) acetaminophen 650 mg suppository (TYLENOL) Problem List: Diffuse pulmonary alveolar hemorrhage [R04.2] Pancytopenia (HCC) [D61.818] HTN (hypertension) [I10] CAPRICE (acute kidney injury) (HCC) [N17.9] Acute on chronic respiratory failure with hypoxia (HCC) [J96.21] Abdominal pain [R10.9] Severe protein-calorie malnutrition (HCC) [E43] History of heparin-induced thrombocytopenia [Z86.2] (HFpEF) heart failure with preserved ejection fraction (HCC) [I50.30] Peripheral neuropathy [G62.9] CKD (chronic kidney disease) stage 3, GFR 30-59 ml/min [N18.3] Obesity, Class III, BMI >= 40 (morbid obesity) E66.01 [E66.01] APS (antiphospholipid syndrome) (HCC) [D68.61] Anticoagulation management encounter [Z51.81, Z79.01] Pulmonary HTN [I27.20] GERD (gastroesophageal reflux disease) [K21.9] RUQ abdominal pain [R10.11] Diarrhea [R19.7] Bacteremia [R78.81] History of HIT (heparin-induced thrombocytopenia) (HCC) [D75.82] Recurrent deep vein thrombosis (DVT) (HCC) [I82.409] Recurrent pulmonary emboli (HCC) [I26.99] Anticoagulation monitoring, special range [Z79.01] Renal vein thrombosis (HCC) [I82.3] 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] Hypercoagulable state (HCC) [D68.59] Healthcare maintenance [Z00.00] Iron deficiency anemia secondary to inadequate dietary iron intake [D50.8] SIRS (systemic inflammatory response syndrome) (HCC) [R65.10] Sepsis due to Enterococcus (HCC) [A41.81] Bacteremia due to Staphylococcus epidermidis [R78.81] Obesity, Class II, BMI 35-39.9 E66.9 [E66.9] Retroperitoneal bleeding [R58] Acute blood loss anemia [D62] Retroperitoneal hemorrhage [R58] Malnutrition of mild degree (HCC) [E44.1] Anti-phospholipid antibody syndrome (HCC) [D68.61] Retroperitoneal hematoma [K66.1] Allergies: Rhubarb Heparin IV Contrast [Iodine] Rituximab Date Verified: 10/26/17 Lab Values Lab Value Units Date High Low POTA* 5.4 mmol/L 10/26/2017 5.1 3.7 DAREK* 19.3 % 10/26/2017 46.0 36.0 Progress Notes (): Aline Engle MD 10/26/2017 4:29 AM [facility] PATIENT NAME: Paloma Cannon History of Presenting Illness Ms. Cannon is a 27 year old female with a PMHx significant for: - Anti-phospholipid syndrome c/b DVT/PE requiring extensive percutaneous thrombectomy of her IVC and lower extremity veins followed by b/l iliac venous stents and endograft into her IVC, on long-term anti-coagulation (recently changed to fondaparinux from coumadin on 10/13 admission) and IVC, plasmapheresis q2 weeks, prednisone 5mg daily - DAH - on cyclophosphamide and prednisone, has had 6 episodes of respiratory decline since 2013, last admission for hemoptysis on 10/13/17, on 2 L at night and with exertion - HIT - CKD 3, 2/2 renal vein thrombosis and contrast-induced nephropathy - HFpEF - HTN - Peripheral neuropathy - post-thrombotic syndrome Recent admission 10/13/17-10/23/17 for hemoptysis and SOB, requiring intubation, was transferred to ICU for management of DAH initially requiring pressors. Coumadin was held on admission, and she was started on prophylactic fondaparinux on 10/14. She received PLEX 10/16 and then was extubated. On 10/17, she had left-sided chest pain with increased oxygen requirement, concerning for PE, but no imaging was done as plan was to continue anticoagulation. Plex again on 10/18. She had bilateral US no showing acute DVT but + for chronic common femoral DVT. Neurology was consulted for left foot numbness with no intervention recommended. She was d/sandy on PO prednisone. She presented to [facility] ED on 10/23 due to severe stabbing left-sided abdominal pain radiating to left arm/leg. She had a CT abdomen that showed extensive left retroperitoneal hemorrhage with mass effect to the left kidney, and less extensive hemorrhage along the surface of the spleen and along the mesentery. She was transferred to [facility] as ICU at [facility] was full. ICU course at [facility]: 10/23 Hb 4.8, received 2 units of blood - IR: urgent L RP angiogram, found to have bleeding from multiple foci of the left L3 artery, s/p embolization with gelfoam and coils w/ incidental finding of large lower extremity fistula, per vasc surgery surgically created, and no need for intervention at this time - Vascular surgery consulted, no need for intervention 10/24 -required 2 more units -Nephrology consulted for oliguric CAPRICE: contrast induced nephropathy - LE venous ultrasound: negative for acute dvt bilaterally 10/25 - trialed on IV lasix and demedex diuretics which did not improve urine output - received 2 more units - tunneled dialysis port placement - first dialysis today Reportedly, received a total of 7 units. Prior to infusions is premedicated with diphenhydramine and solu-cortef. Currently, the patient is afebrile, with HR of 100, hypertensive with MAPs of 110's, respiring at 98% on 6 L. Labs notable for Hb 6.6, WBC 21.82, plt 44 AST 63/ ALT 95 when previously normal Baseline Cr 1.22, now 2.84, sodium 125, potassium 5.4, CO2 20, phos 8.4 PTT 26.8, INR 1 Respiratory cx: many gram neg diplococci, moderate yeast, few gram positive bacilli Blood culture 10/23: NGTD Assessment and Plan Neuro: Mental status: alert and oriented Pain: has prn dilaudid and ella, states that fentanyl and morphine had no affect and even dilaudid WAITER/WAITRESS CABIN CLASS was insufficient, may need to readdress, dilaudid WAITER/WAITRESS CABIN CLASS for now Peripheral neuropathy: gabapentin 200 q12, at home TID, but now renally dosed Cardiovascular: HF: mildly decreased systolic function, diastolic function indeterminate on 10/13/17 ECHO HTN - hold home amlodipine Respiratory: DAH: cyclophosphamide on hold until 10/30, continue bactrim - continue prednisone 80 mg daily on day 4 Increased oxygen requirement likely 2/2 diffuse anasarca and difficulty w/ deep breathing - consult to nephrology with HD GI: Diet: renal Constipation: senna BID in setting of opiates, last BM yesterday Elevated liver enzymes, possibly 2/2 volume overload in the setting of acute RF Retroperitoneal hematoma - see hematology Renal CAPRICE on CKD III, 2/2 contrast, now requiring dialysis - first HD at [facility] on 10/25 with tunneled dialysis catheter placement - Zuniga to monitor I/Os - Nephrology consult Hyperphosphatemia in setting of acute renal failure - sevelamer TID Hyponatremia, likely 2/2 CAPRICE with hyperkalemia of 5.4 - monitor BMP - HD AG acidosis likely 2/2 lactic acidosis - check lactate - s/p 7 + 1 right now PRBCs Hematology Anti-phospholipid syndrome: - Plasmapheresis q2 weeks - hold anticoagulation until resolution of retroperitoneal bleed - consult to vascular medicine - consult to hematology Retroperitoneal bleed: s/p 7 units PRBCs s/p IR emobolization of left L3 artery - now with tube placement draining serosanguinous fluid - monitor Hb q8 - transfuse for Hb <7, plt <50 - will give 1 unit PRBC and 1 unit plt now for hb <7, plt <50 - solu-cortef IV 100 and benadryl 50 IV to be given prior to transfusion - check lactate Vasculopathy of right leg with poor pedal pulse - will need serial pulses checks, q2 ID Afebrile, but with leukocytosis in setting of steroids and acute bleed, has been elevated since 10/22 No acute signs of infection - follow blood/sputum cultures from [facility] - ICU nomogram DVT PPx: IPCs GI PPx: protonix Code status: full code DIET RENAL Lines, Drains, and Airways Line Dialysis / Apheresis Double Lumen Admission to Hospital Non- tunneled Left Chest -- days Peripheral 10/23/17 1235 Right Antecubital 22 Gauge 2 days Central Line Single Lumen 10/25/17 2314 Tunneled Left Chest less than 1 day Dialysis / Apheresis Double Lumen 10/25/17 2314 Admission to Hospital Left Chest less than 1 day Drain Indwelling Urinary Catheter 10/23/17 0520 Assessment Zuniga 2 days Drain/Tube 10/24/17 0200 Assessment Right Groin Drain #1 1 day Vitals Temp (24hrs), Av.4 ?C (97.5 ?F), Min:36.4 ?C (97.5 ?F), Max:36.4 ?C (97.5 ?F) Fluids No intake or output data in the 24 hours ending 10/25/17 0659 Physical Examination Performed Oral Mucosa: Moist mucous membranes Eyes: PERRLA Neck: Unremarkable; No adenopathy or JVD Cardiovascular: Murmur systolic Respiratory: Clear to auscultation Abdomen: Soft, edema Extremities: cool left lower extremity Edema- Pitting edema bilaterally, with signs of venous stasis Peripheral Pulses- positive pedal pulse on left, faint pedal pulse on right, identifiable with doppler Capillary Refill- less than 3 seconds Skin: Abnormalities- Yes, venous stasis bilaterally Breakdown- none Neurologic: alert and oriented Labs/Imaging Recent Labs 10/25/17 1814 10/25/17 0853 10/25/17 0500 10/24/17 2230 10/24/17 1355 10/24/17 0405 10/23/17 0630 WBC 22.45* 19.99* 21.88* 25.41* -- < > 28.42* < > 17.22* HB 7.7* 6.7* 7.0* 6.7* -- < > 6.7* < > 4.8* HCT 22.5* 19.1* 20.0* 19.3* -- < > 20.0* < > 15.6* PLT 40* 87* 92* 106* -- < > 151 < > 187 NA -- -- 125* 128* 129* -- -- < > 139 K -- -- 5.5* 5.0 6.0* -- -- < > 4.1 CHLOR -- -- 85* 86* 89* -- -- < > 97* CO2 -- -- 25 24 27 -- -- < > 31 CREAT -- -- 2.86* 2.77* 2.55* -- -- < > 1.35 P -- -- 8.6* -- -- -- 7.8* -- -- BUN -- -- 75* 77* 73* -- -- < > 63* GLUC -- -- 97 149* 109* -- -- < > 158* TPROT -- -- 4.7* -- -- -- -- -- 4.3* ALB -- -- 3.0* -- -- -- -- -- 3.2* MG -- -- 2.1 -- -- -- 2.1 -- 2.0 CA -- -- 7.8* 7.6* 7.9* -- -- < > 8.0* ALKPHOS -- -- 44 -- -- -- -- -- 34* TBILI -- -- 0.8 -- -- -- -- -- 0.4 AST -- -- 73* -- -- -- -- -- 14 ALT -- -- 106* -- -- -- -- -- 9 AMYLASE -- -- -- -- -- -- -- -- 47 LIPASE -- -- -- -- -- -- -- -- 48 < > = values in this interval not displayed. 10/23/17 IR Angiogram MULTIPLE FOCI OF ACTIVE EXTRAVASATION FROM BRANCHES OF THE LEFT L3 LUMBAR ARTERY. ?SUCCESSFUL GELFOAM/COIL EMBOLIZATION OF THE MIDPORTION OF THIS ARTERY. INCIDENTALLY DISCOVERED DISTAL LEFT COMMON FEMORAL ARTERY TO COMMON FEMORAL VEIN ARTERIOVENOUS FISTULA. ?GIVEN ITS LOCATION ACROSS THE JOINT, NOT AMENABLE TO ENDOVASCULAR STENTING. ?RECOMMEND SURGICAL EVALUATION. Past Medical History PAST MEDICAL HISTORY Diagnosis Date - (HFpEF) heart failure with preserved ejection fraction (HCC) 02/20/2016 HFpEF w last EF 50-55% On Torsemide, coreg, hydralazine and imdur at home No signs of acute exacerbation on admission Plan: -Continue home medications - Anasarca 11/29/2013 - Anemia 03/10/2015 Chronic microcytic anemia. 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 Thrombosis, and Diffuse Alveolar Hemorrhage. On Warfarin and PLEX (Twice Weekly)? Plan: -Warfarin 5mg qday-holding for planned EGD on 01/11 d/t supra therapeutic INR -Cont. PO Prednisone 10mg MWFS and 5mg TTS -Pantoprazole for GI PPx of Above -Apharesis was supposed to be yesterday, will contact plasmapheresis team on recommendations - Antiphospholipid syndrome (HCC) - Catastrophic Antiphospholipid antibody syndrome 11/09/2013 - Cholelithiasis 01/11/2017 Likely cause of recent pancreatitis. Plan: Per general surgery, no acute surgical intervention at this time. Will await results of EGD. If active gastritis, favor outpatient cholecystectomy. If no active gastritis on EGD, plan for cholecystectomy this admission. 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 Disp: 0.8 mL Rfl: 0 Unknown at Unknown time diphenhydrAMINE (BENADRYL) 50 mg capsule Take 1 capsule by mouth every 6 hours as needed for Itching/Rash. Disp: Rfl: Unknown at Unknown time gabapentin (NEURONTIN) 100 mg capsule Take 1 capsule by mouth three times daily for 7 days. Disp: Rfl: Unknown at Unknown time predniSONE (DELTASONE) 20 mg tablet Take 4 tablets by mouth once daily for 8 days. Disp: 32 tablet Rfl: 0 Unknown at Unknown time ondansetron (ZOFRAN, HYDROCHLORIDE,) 8 mg tablet Take 8 mg by mouth every 8 hours as needed for Nausea/Vomiting. Disp: Rfl: Unknown at Unknown time pantoprazole DR (PROTONIX) 40 mg tablet Take 40 mg by mouth daily at bedtime. Disp: Rfl: Unknown at Unknown time sulfamethoxazole-trimethoprim (BACTRIM DS) 800-160 mg per tablet Take 1 tablet by mouth every Monday,Monday,Monday. Disp: 36 tablet Rfl: 3 Unknown at Unknown time fluticasone (FLONASE) 50 mcg/actuation nasal spray Use 1-2 Sprays in each nostril once daily as needed for Cold/Allergy Symptoms (starting in allergy season). Disp: Rfl: Unknown at Unknown time senna 8.6 mg tab Take 1 tablet by mouth twice daily as needed. Disp: 60 tablet Rfl: 0 Unknown at Unknown time Rhubarb; Heparin; Iv Contrast [Iodine]; Rituximab 27 y/o female with hx of anti-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 endograft, on senior living AC with warfarin, plasmapharesis q2 weeks, prednisone 5 mg qD), Diffuse alveolar hemorrhage (on cyclophosphamide), HIT, HFpEF, HTN, CKD, peripheral neuropathy, post-phlebitic syndrome?who was admitted to [facility] MICU on 10/13 for alveolar hemorrhage. She was discharged yesterday after she stabilized and reached her home around 6 PM. She started having severe left sided abdominal pain under her breast radiating down to thigh region and went back to [facility] ED. She had a CT abdomen at outside hospital. Showed extensive L. retroperitoneal Hemorrhage with mass effect to left kidney. Also less extensive hemorrhage present along the surface of the spleen and along mesentery. Transferred to MICU as [facility] had no beds. On arrival to MICU patient complained of severe excruciating pain in the left abdomen, 10/10 in intensity, sharp in quality radiating from Left breast to thigh region. Pain is constant per patient and only minimally improved with Dilaudid patient received in [facility]. ICU course: HG 4.8, lethargic c/o left flank pain poor relief with IV fentanyl. BP low but acceptable (SBP 100-120) Pt received 2 units emergency blood, IR consulted, underwent urgent L RP angiogram, found to have bleeding from multiple foci of the left L3 artery, -> embolized. Incidential finding of large ADHESIVE SPRAYER -CFV fistula, Vascular Surgery consulted -. fistula created in 2013 no need for intervention will arrange for US eval for thrombus. 10/24 HG drifting down, (expected). required 2 units PRBC today. oliguric CAPRICE, UOP 0-5 cc/hr overnight, with rising CR, potassium 6 Nephrology consulted (contrast nephropathy), conservative management, may require HD, holding today. IV hyperkalemia protocol, kayexalate repet bmp 9PM Family requests transfer to [facility] . AC on hold in setting acute bleed 10/25: IV Lasix and Demedex diuretics did not improve u/o. Received 2 units PRBCs overnight with total of 7 units PRBCs since admission to . Is premedicated with diphenhydramine AND solu-cortef prior to each infusion of PRBCs.Nephrology consult to Dr Crandall who ordered HD through Apheresis port. Having problems with pain control. Has Dilaudid WAITER/WAITRESS CABIN CLASS. Added scheduled Percocet 1 q6h. Will continue to work with pt on pain control. Updated on plan of care. Assessment/Plan retroperitoneal bleed 10/23. HG 4.8, required 4 units PRBC underwent IR embolization of left lumbar artery serous output from right groin pouch placed HG continues to drift down (expected), required additional 2 units post procedure Plan: - transfused 1 unit PRBC today -PRBC 1 unit is transfused for Hgb > 7-with premedication benadryl AND solu-cortef Q4h HANDH's Neuro: Peripheral neuropathy left flank pain Plan: -add Gabapentin, reduced dose given renal failure -dilaudid WAITER/WAITRESS CABIN CLASS -0.2mg q 20 minutes no basal -percocet p.o. Scheduled Continue to assess for effective pain management. Cardiovascular: HFpEF: LVEF ~ 50% BP low on presentation in setting acute blood loss anemia Has not required pressors improved, holding antihypertensives Plan: - Amlodipine, hydralazine, currently on hold resume if pt becomes hypertensive Renal: Acute on chronic renal disease 2/2 contrast nephropathy CKD (baseline Cr ~ 1.1-1.3): Cr 1.32 upon presentation now 2.86 worsening renal function contrast, hyperkalemia (6) -Nephrology updated oliguric UOP 5-10cc/h poor response to low dose lasix Plan: - Monitor BUN/Cr -efrain for accurate I/O in setting oliguric CAPRICE -Nephrology consulted - Dr Crandall -HD ordered per Dr Crandall-2 liters removed Hematology: - 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 discharged 10/22 on fondaparinux currently on hold Plan: Consulted hematology, appreciate recs --plasmapheresis q 2 weeks and prednisone 80 mg daily; a prednisone taper by 20 mg every four days (with maintenance of prednisone 5 mg daily) plasmapheresis due Monday will transfer to [facility] by Monday 10/30 Prophylactic: - PPI -a/c held, scd's ADHESIVE SPRAYER -CFV fistula, Vascular Surgery consulted -. fistula created in 2013 no need for intervention FULL CODE difficult airway seen and discussed with Dr Wyatt On transfer to [facility] to [facility] Dr Womack contacting MICU staff to discuss transfer No [facility] bed avail. today 10/25. SIGNATURE: Aline Engle MD, PGY-1 PATIENT NAME: Paloma Cannon DATE: October 26, 2017 TIME: 12:09 AM PAGER: [phone] Note: These recommendations are not final until staffed by provider DR. FRED STONE, SR. HOSPITAL STAFF PHYSICIAN NOTE OF PERSONAL INVOLVEMENT IN CARE I have reviewed the history and physical examination obtained and documented by the resident and I personally participated in the fernandes components. I have discussed the case and management of the patient's care. The following comments revise or confirm relevant fernandes components of the note. Paloma Cnanon is a 27 year old woman with antiphospholipid syndrome, multiple embolic complications, on chronic anticoagulation however complicated by bleeding episodes Recently discharged from our hospital after severe illness, intubated for DAH, converted from coumadin to fondaparinux however within a day represented to the hospital locally with retroperitoneal bleed Embolized however still having evidence of inappropriate improvement with transfusions and has abdominal pain radiating to leg from significant inflammation/infiltration of blood in retroperitoneal space With contrast given, CAPRICE worsened and needed dialysis to remove fluid which helped abd distension and breathing however now becoming worse. Active issues and plans for today include: Retroperitoneal bleed on fondaparinux in patient with APLS hx of DVTs and PEs Off anticoagulation Monitoring H/H s/p embolization Pain control for RP space Hypoxemia on 6L Atelectasis from pain, poor excursion Fluid overload Incentive spirometry when pain better Dialysis to remove fluid in am Hx of DAH at this point does not appear to be the case Off anticoag Acute on chronic kidney injury from contrast Malnutrition adding to fluid overload Poor appetite due to edema Requesting outside solar sales consultant involvement from those involved on regular basis Nephrology Vascular medicine hematology This patient has a high probability of sudden, clinically significant deterioration, which requires the highest level of physician preparedness to intervene urgently. I managed/supervised life or organ supporting interventions that required frequent physician assessment. I devoted my full attention in the ICU to the direct care of this patient for the period of time indicated below. Time I spent with family or surrogate(s) is included only if the patient was incapable of providing the necessary information or participating in medical decision making. Time devoted to teaching and to any procedures I billed separately is not included. Critical Care documentation: The patient has the following organ/system impairment(s): Cardiovascular impairment, Respiratory impairment and Severe metabolic abnormality Time spent providing critical care services: 50 minutes Britney Brady MD Respiratory [place] Beeper Number: [id number] Date of Service: 10/26/2017 Previous Version Linnette Almendarez MD 10/26/2017 8:05 AM Incomplete VASCULAR MEDICINE INITIAL CONSULT SERVICE DATE: 10/26/2017 SERVICE TIME: 7:38 Requesting Provider: Dr. Aline Engle Opinion/advice regarding: AC Subjective CHIEF COMPLAINT: HPI: This is a 27 year old female who presents with PAST MEDICAL HISTORY Diagnosis Date - (HFpEF) heart failure with preserved ejection fraction (HCC) 02/20/2016 HFpEF w last EF 50-55% On Torsemide, coreg, hydralazine and imdur at home No signs of acute exacerbation on admission Plan: -Continue home medications - Anasarca 11/29/2013 - Anemia 03/10/2015 Chronic microcytic anemia. 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 Thrombosis, and Diffuse Alveolar Hemorrhage. On Warfarin and PLEX (Twice Weekly)? Plan: -Warfarin 5mg qday-holding for planned EGD on 01/11 d/t supra therapeutic INR -Cont. PO Prednisone 10mg MWFS and 5mg TTS -Pantoprazole for GI PPx of Above -Apharesis was supposed to be yesterday, will contact plasmapheresis team on recommendations - Antiphospholipid syndrome (HCC) - Catastrophic Antiphospholipid antibody syndrome 11/09/2013 - Cholelithiasis 01/11/2017 Likely cause of recent pancreatitis. Plan: Per general surgery, no acute surgical intervention at this time. Will await results of EGD. If active gastritis, favor outpatient cholecystectomy. If no active gastritis on EGD, plan for cholecystectomy this admission. - CKD (chronic kidney disease) stage 3, GFR 30-59 ml/min 07/06/2016 Baseline SCr 1.5-1.7 Plan: -renally dose medications -avoid nephrotoxic agents - DVT (deep venous thrombosis) ([facility]) - Elevated CA-125 11/30/2013 244 - Essential hypertension 10/08/2015 Stable on home medications Plan: -continue to monitor on home meds - 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 Bivalirudin to Warfarin bridging - HIT (heparin-induced thrombocytopenia) ([facility]) - Nontoxic multinodular goiter - Obese - Obesity, Class III, BMI >= 40 (morbid obesity) E66.01 10/18/2016 - Peripheral neuropathy 04/14/2016 - Severe protein-calorie malnutrition (HCC) 12/29/2015 PAST SURGICAL HISTORY Procedure Laterality Date - PAST SURGICAL HISTORY OF 2012 IVC thrombectomy - PAST SURGICAL HISTORY OF 2012 b/l iliac v. 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 - PAST SURGICAL HISTORY OF Adenoidectomy - PICC LINE INSERT/CONSULT 11/29/2013 - PICC LINE INSERT/CONSULT 03/10/2015 - PICC LINE INSERT/CONSULT 02/20/2016 FAMILY HISTORY: Mother: Father: Siblings: { :11178::no} SOCIAL HISTORY: Smoking: { :80974::No} Drink alcohol: { :00366::no} : { :19008::no} Children: { :91305::no} Work outside the home: { :33810::no} Drug abuse: { :55944::no} STD's: { :67004::no} diphenhydrAMINE (BENADRYL) 50 mg capsule Take 1 capsule by mouth every 6 hours as needed for Itching/Rash. gabapentin (NEURONTIN) 100 mg capsule Take 1 capsule by mouth three times daily for 7 days. predniSONE (DELTASONE) 20 mg tablet Take 4 tablets by mouth once daily for 8 days. ondansetron (ZOFRAN, HYDROCHLORIDE,) 8 mg tablet Take 8 mg by mouth every 8 hours as needed for Nausea/Vomiting. pantoprazole DR (PROTONIX) 40 mg tablet Take 40 mg by mouth daily at bedtime. sulfamethoxazole-trimethoprim (BACTRIM DS) 800-160 mg per tablet Take 1 tablet by mouth every Monday,Monday,Monday. fluticasone (FLONASE) 50 mcg/actuation nasal spray Use 1-2 Sprays in each nostril once daily as needed for Cold/Allergy Symptoms (starting in allergy season). senna 8.6 mg tab Take 1 tablet by mouth twice daily as needed. Current Facility-Administered Medications: senna 8.6 mg tab(s) (SENOKOT) 8.6 mg ORAL/FEEDING TUBE BID pantoprazole DR 40 mg tab(s) (PROTONIX) 40 mg ORAL DAILY (6 AM) ondansetron 8 mg tab(s) (ZOFRAN) 8 mg ORAL q 8 H PRN diphenhydrAMINE 50 mg (BENADRYL) 50 mg ORAL/FEEDING TUBE q 6 H PRN predniSONE (DELTASONE) tab(s) 80 mg 80 mg ORAL/FEEDING TUBE DAILY gabapentin 100 mg cap(s) (NEURONTIN) 100 mg ORAL q 12 H hydrocortisone sodium succinate (PF) 100 mg injection (Solu- CORTEF) 100 mg INTRAVENOUS q 4 H PRN sevelamer carbonate 800 mg tab(s) (RENVELA) 800 mg ORAL TID w MEALS HYDROmorphone WAITER/WAITRESS CABIN CLASS 0.5 mg/mL in NaCl 0.9% 100 mL INTRAVENOUS CONTINUOUS diphenhydrAMINE 50 mg injection (BENADRYL) 50 mg INTRAVENOUS q 4 H PRN NaCl 0.9% iv infusion 5-30 mL/hr INTRAVENOUS CONTINUOUS 0.9% NaCl 3-5 mL 3-5 mL INTRAVENOUS q 12 H insulin regular human injection (short acting) (NovoLIN R,HumuLIN R) SUBCUTANEOUS q 6 H insulin regular 250 units in NaCl 0.9% 250 mL iv infusion - ICU NOMOGRAM 0.5-30 Units/hr INTRAVENOUS CONTINUOUS insulin regular human iv bolus 2-10 Units 2-10 Units INTRAVENOUS PRN dextrose 50% in water 25-50 mL syringe 12.5-25 g INTRAVENOUS PRN dextrose 40 % 15 g 15 g ORAL PRN glucagon 1 mg injection (GLUCAGEN) 1 mg SUBCUTANEOUS PRN acetaminophen 650 mg tab(s) (TYLENOL) 650 mg ORAL/FEEDING TUBE q 6 H PRN And acetaminophen 650 mg suppository (TYLENOL) 650 mg RECTAL q 6 H PRN ALLERGIES Allergen Reactions - Rhubarb Rash, Hives - Heparin Other: See Comments Per patient history of HIT - was on angiomax however then took l fondaparinux for bridging to coumadin. - Iv Contrast [Iodine] Other: See Comments shuts kidneys down per patient - Rituximab Other: See Comments Elevated cardiac enzymes CANCER SCREENING QUESTIONS: { :54109} Objective REVIEW OF SYSTEMS: GENERAL: Fever: { :97701::No} Chills: { :18275::No} Night sweats: { :93074::No} Changes in weight: { :21524::No} NEUROLOGICAL: Headaches: { :45719::No} Seizures: { :66302::No} Passing out: { :94281::No} Numbness, tingling or sensation of pins and needles: { :72653::No} HEAD, EYES, EARS, NOSE, AND THROAT: Changes in hearing: { :19120::No} Changes in vision: { :99058::No} Nose bleeds: { :60990::No} CARDIOVASCULAR: Chest pain or pressure: { :84043::No} Palpitations: { :39472::No} Irregular heart rate: { :32409::No} RESPIRATORY: Cough: { :01826::No} Wheezing: { :75738::No} Shortness of breath: { :09342::No} Shortness of breath with exertion: { :38467::No} Coughing up blood: { :90931::No} GASTROINTESTINAL: Abdominal discomfort: { :21034::No} Nausea: { :01344::No} Vomiting: { :12508::No} Diarrhea: { :80464::No} Constipation: { :75265::No} Difficulty swallowing: { :67958::No} Pain with swallowing: { :92676::No} Stomach pain after eating: { :28469::No} Passing blood with bowel movement: { :30408::No} Black tarry stool: { :58283::No} GENITOURINARY: Pain with urination: { :72171::No} Blood in urine: { :27555::No} SEVERITY OF ILLNESS COORDINATOR: Abnormal vaginal bleeding: { :72576::No} History of loss: { :02343::No} EXTREMITY: Edema (swelling): { :96658::No} Pain with walking: { :54025::No} MUSCULOSKELETAL: Joint pain: { :76357::No} Joint swelling: { :81317::No} Back pain: { :75376::No} Muscle pain or ache: { :98568::No} SKIN: Rash: { :01027::No} Lesions: { :37389::No} Sores: { :94511::No} Ulcers: { :44302::No} Tenderness: { :82695::No} Skin cancer: { :90435::No} HEMATOLOGY: Easy bruising: { :51250::No} Blood transfusions: { :85077::No} PSYCHOLOGICAL: Do you ever feel blue or nervous: { :29037::No} OTHER: PHYSICAL EXAM: Vital Signs: BP 144/71 Pulse 97 Temp 36.5 ?C (97.7 ?F) (Oral) Resp 13 Ht 160 cm (5' 3) Wt 114.3 kg (251 lb 15.8 oz) SpO2 97% BMI 44.64 kg/m2 General: Neck: Cardiac: Respiratory: Abdominal/GI: Extremity: Skin: Pulse/vascular exam: DATA: Diagnostic tests reviewed for today's visit: { :407612} Component Latest Ref Rng AND Units 10/23/2017 10/23/2017 10/23/2017 10/23/2017 10/24/2017 10/24/2017 10/24/2017 10/24/2017 10/25/2017 10/25/2017 10/25/2017 10/26/2017 6:30 AM 12:57 PM 5:30 PM 8:30 PM 12:20 AM 8:40 AM 12:00 PM 10:30 PM 5:00 AM 8:53 AM 6:14 PM WBC 3.70 - 11.00 k/uL 17.22 (H) 17.69 (H) 21.60 (H) 23.91 (H) 26.37 (H) 28.08 (H) 26.49 (H) 25.41 (H) 21.88 (H) 19.99 (H) 22.45 (H) 21.82 (H) RBC 3.90 - 5.20 m/uL 1.75 (L) 2.80 (L) 2.66 (L) 2.63 (L) 2.41 (L) 2.49 (L) 2.34 (L) 2.27 (L) 2.38 (L) 2.28 (L) 2.65 (L) 2.22 (L) Hemoglobin 11.5 - 15.5 g/dL 4.8 (LL) 8.1 (L) 7.5 (L) 7.5 (L) 6.9 (L) 7.2 (L) 6.8 (L) 6.7 (L) 7.0 (L) 6.7 (L) 7.7 (L) 6.6 (L) Hematocrit 36.0 - 46.0 % 15.6 (L) 24.2 (L) 23.0 (L) 22.9 (L) 20.7 (L) 21.5 (L) 20.1 (L) 19.3 (L) 20.0 (L) 19.1 (L) 22.5 (L) 19.3 (L) MCV 80.0 - 100.0 fL 89.1 86.4 86.5 87.1 85.9 86.3 85.9 85.0 84.0 83.8 84.9 86.9 MCH 26.0 - 34.0 pG 27.4 28.9 28.2 28.5 28.6 28.9 29.1 29.5 29.4 29.4 29.1 29.7 MCHC 30.5 - 36.0 g/dL 30.8 33.5 32.6 32.8 33.3 33.5 33.8 34.7 35.0 35.1 34.2 34.2 RDW-CV 11.5 - 15.0 % 19.8 (H) 16.8 (H) 17.2 (H) 17.5 (H) 17.3 (H) 16.3 (H) 16.2 (H) 16.0 (H) 15.8 (H) 15.9 (H) 15.8 (H) 15.6 (H) Platelet Count 150 - 400 k/uL 187 130 (L) 158 168 151 140 (L) 122 (L) 106 (L) 92 (L) 87 (L) 40 (L) 44 (L) Component Latest Ref Rng AND Units 10/20/2017 10/21/2017 10/22/2017 10/26/2017 Protein, Total 6.3 - 8.0 g/dL 5.7 (L) 5.9 (L) 5.1 (L) 4.9 (L) Albumin 3.9 - 4.9 g/dL 3.9 3.9 3.5 (L) 3.2 (L) Calcium 8.5 - 10.2 mg/dL 8.5 8.9 8.5 8.0 (L) Bilirubin, Total 0.2 - 1.3 mg/dL 0.4 0.4 0.4 1.1 Alkaline Phosphatase 32 - 117 U/L 44 45 38 54 AST 13 - 35 U/L 13 15 19 63 (H) Glucose 74 - 99 mg/dL 202 (H) 113 (H) 96 105 (H) BUN 7 - 21 mg/dL 53 (H) 63 (H) 63 (H) 63 (H) Creatinine 0.58 - 0.96 mg/dL 1.39 (H) 1.48 (H) 1.38 (H) 2.84 (H) Sodium 136 - 144 mmol/L 136 138 138 125 (L) Potassium 3.7 - 5.1 mmol/L 3.8 3.8 3.8 5.4 (H) Chloride 97 - 105 mmol/L 93 (L) 93 (L) 93 (L) 83 (L) CO2 22 - 30 mmol/L 30 30 34 (H) 20 (L) Anion Gap 9 - 18 mmol/L 13 15 11 22 (H) ALT 7 - 38 U/L 8 7 13 95 (H) eGFR- 55 51 55 24 eGFR-All Other Races . 45 42 46 20 Component Latest Ref Rng AND Units 10/22/2017 10/26/2017 PT INR 0.9 - 1.3 1.1 1.0 APTT 23.0 - 32.4 sec 26.8 Impression/Recommendations Active Problems: Sepsis due to Enterococcus (HCC) POA: Yes Assessment AND Plan: Diffuse pulmonary alveolar hemorrhage POA: Yes Assessment AND Plan: CAPRICE (acute kidney injury) (HCC) POA: Yes Assessment AND Plan: History of heparin-induced thrombocytopenia POA: Yes Assessment AND Plan: HTN (hypertension) POA: Yes Assessment AND Plan: Anti-phospholipid antibody syndrome (HCC) POA: Yes Assessment AND Plan: Retroperitoneal hematoma POA: Unknown Assessment AND Plan: Resolved Problems: * No resolved hospital problems. * SIGNATURE: Linnette Almendarez MD PATIENT NAME: Paloma Cannon DATE: October 26, 2017 TIME: 7:39 AM PAGER/CONTACT #: . Destinee Flores MD, MD 10/26/2017 8:[address] FRED STONE, SR. HOSPITAL STAFF PHYSICIAN NOTE OF PERSONAL INVOLVEMENT IN CARE I have reviewed the progress note obtained and documented by the nurse practitioner/physician child nutrition assistant and I personally participated in the fernandes components. I have discussed the case and management of the patient's care and reviewed records/data/labs/radiographs and concur with the physical exam. The following comments revise or confirm relevant fernandes components of the note. IMPRESSION: This is a 27 yo F with above mentioned past medical history most notable for antiphospholipid syndrome with complications of multiple embolic events on chronic anticoagulation, cyclophosphamide and plasmapharesis who was recently admitted for DAH, acute respiratory failure requiring intubation and within a day of discharge presented with retroperitoneal bleed and acute kidney injury. She required embolization, however is still requiring transfusions, and dialysis for CAPRICE. Active issues: Acute blood loss anemia due to retroperitoneal bleed Acute on chronic kidney injury likely due to FABY - started on first session of dialysis 10/25 Hypoxemia Chronic DVT in common femoral vein PLAN: Vascular medicine and hematology consult to assist with further management of APLS IR consult to assess for continued bleeding - recommending CTA MICU ppx This patient has a high probability of sudden, clinically significant deterioration, which requires the highest level of physician preparedness to intervene urgently. I managed/supervised life or organ supporting interventions that required frequent physician assessment. I devoted my full attention to the direct care of this patient for the amount of time indicated below. Time I spent with family or surrogate(s) is included only if the patient was incapable of providing the necessary information or participating in medical decision making. Time devoted to teaching and to any procedures I billed separately is not included. Critical Care Documentation: The patient has the following organ/system impairment(s): Acute blood loss and Severe metabolic disorder Time spent providing critical care services: 38 minutes. SIGNATURE: Destinee Flores MD [facility] PAGER:[phone] DATE of SERVICE: October 26, 2017 TIME of SERVICE: 8:17 AM Juan Christopher MD 10/26/2017 8:44 AM [facility] Initial Consult Note PATIENT NAME: Paloma Cannon [facility] #: [id number] ATTENDING PHYSICIAN: DATE OF SERVICE: 10/26/2017 Room/Bed: G060 006/G060-06 REASON FOR CONSULT: Consulting PHYSICIAN: HPI: Ms. Cannon is a 27 year old female with a PMHx significant for: - Anti-phospholipid syndrome c/b DVT/PE requiring extensive percutaneous thrombectomy of her IVC and lower extremity veins followed by b/l iliac venous stents and endograft into her IVC, on long-term anti-coagulation (recently changed to fondaparinux from coumadin on 10/13 admission) and IVC, plasmapheresis q2 weeks, prednisone 5mg daily - DAH - on cyclophosphamide and prednisone, has had 6 episodes of respiratory decline since 2013, last admission for hemoptysis on 10/13/17, on 2 L at night and with exertion - HIT - CKD 3, 2/2 renal vein thrombosis and contrast-induced nephropathy - HFpEF - HTN - Peripheral neuropathy - post-thrombotic syndrome ? Recent admission 10/13/17-10/23/17 for hemoptysis and SOB, requiring intubation, was transferred to ICU for management of DAH initially requiring pressors. Coumadin was held on admission, and she was started on prophylactic fondaparinux on 10/14. She received PLEX 10/16 and then was extubated. On 10/17, she had left-sided chest pain with increased oxygen requirement, concerning for PE, but no imaging was done as plan was to continue anticoagulation. Plex again on 10/18. ? She had bilateral US no showing acute DVT but + for chronic common femoral DVT. Neurology was consulted for left foot numbness with no intervention recommended. ? She was d/sandy on PO prednisone. ? She presented to [place] ED on 10/23 due to severe stabbing left-sided abdominal pain radiating to left arm/leg. She had a CT abdomen that showed extensive left retroperitoneal hemorrhage with mass effect to the left kidney, and less extensive hemorrhage along the surface of the spleen and along the mesentery. She was transferred to [place] as ICU at [facility] was full. ? ICU course at [place]: 10/23 Hb 4.8, received 2 units of blood - IR: urgent L RP angiogram, found to have bleeding from multiple foci of the left L3 artery, s/p embolization with gelfoam and coils w/ incidental finding of large lower extremity fistula, per vasc surgery surgically created, and no need for intervention at this time - Vascular surgery consulted, no need for intervention 10/24 -required 2 more units -Nephrology consulted for oliguric CAPRICE: contrast induced nephropathy - LE venous ultrasound: negative for acute dvt bilaterally 10/25 - trialed on IV lasix and demedex diuretics which did not improve urine output - received 2 more units - tunneled dialysis port placement - first dialysis today ? Reportedly, received a total of 7 units. ? Prior to infusions is premedicated with diphenhydramine and solu-cortef. ? Currently, the patient is afebrile, with HR of 100, hypertensive with MAPs of 110's, respiring at 98% on 6 L. Labs notable for Hb 6.6, WBC 21.82, plt 44 AST 63/ ALT 95 when previously normal Baseline Cr 1.22, now 2.84, sodium 125, potassium 5.4, CO2 20, phos 8.4 PTT 26.8, INR 1 ? Respiratory cx: many gram neg diplococci, moderate yeast, few gram positive bacilli Blood culture 10/23: NGTD This is a 27 y/o female?with PMHx of Triple-positive Anti- phospholipid Syndrome diagnosed in 2013?(catastrophic APS complicated by PE/DVT requiring extensive percutaneous thrombectomy of her IVC + lower extremity veins with placement of bilateral iliac venous stents and an IVC endograft), needing plasmapheresis q2 weeks,?Diffuse Alveolar Hemorrhage (On prednisone and Cytoxan), who was admitted to MICU for further management of alveolar hemorrhage. ? Presented to [facility] ED with hemoptysis/SOB - found to be in increased work of breathing and low sats - was intubated (10/13/17). Initial labs: Hgb 10.1, WBC 17, INR 2.1 (last dose of Warfarin 5 mg on 10/12/17 evening), Cr 1.32, K 5.0, Bicarb 18, AG 18, Lactate 12.4. ?? Of note, patient follows with Dr. Andujar for APS and next scheduled plasma exchange is on 10/16/2017. Of note, patient has a h/o HIT (however, anti-PF4 on 12/07/2013 negative) and is on coumadin for AC for VTE in the setting of APS. ROS: See HPI. No c/o weight loss, malaise, fevers, new/severe headaches, changes in vision/hearing, nosebleeds or other nasal problems, neck lumps/swelling/goiter/pain, cough/wheezing/SOB, chest pain, leg swelling, or palpitations. PREVIOUS MEDICAL HISTORY PAST MEDICAL HISTORY Diagnosis Date - (HFpEF) heart failure with preserved ejection fraction (HCC) 02/20/2016 HFpEF w last EF 50-55% On Torsemide, coreg, hydralazine and imdur at home No signs of acute exacerbation on admission Plan: -Continue home medications - Anasarca 11/29/2013 - Anemia 03/10/2015 Chronic microcytic anemia. 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 Thrombosis, and Diffuse Alveolar Hemorrhage. On Warfarin and PLEX (Twice Weekly)? Plan: -Warfarin 5mg qday-holding for planned EGD on 01/11 d/t supra therapeutic INR -Cont. PO Prednisone 10mg MWFS and 5mg TTS -Pantoprazole for GI PPx of Above -Apharesis was supposed to be yesterday, will contact plasmapheresis team on recommendations - Antiphospholipid syndrome (HCC) - Catastrophic Antiphospholipid antibody syndrome 11/09/2013 - Cholelithiasis 01/11/2017 Likely cause of recent pancreatitis. Plan: Per general surgery, no acute surgical intervention at this time. Will await results of EGD. If active gastritis, favor outpatient cholecystectomy. If no active gastritis on EGD, plan for cholecystectomy this admission. - CKD (chronic kidney disease) stage 3, GFR 30-59 ml/min 07/06/2016 Baseline SCr 1.5-1.7 Plan: -renally dose medications -avoid nephrotoxic agents - DVT (deep venous thrombosis) ([facility]) - Elevated CA-125 11/30/2013 244 - Essential hypertension 10/08/2015 Stable on home medications Plan: -continue to monitor on home meds - 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 Bivalirudin to Warfarin bridging - HIT (heparin-induced thrombocytopenia) ([facility]) - Nontoxic multinodular goiter - Obese - Obesity, Class III, BMI >= 40 (morbid obesity) E66.01 10/18/2016 - Peripheral neuropathy 04/14/2016 - Severe protein-calorie malnutrition (HCC) 12/29/2015 PREVIOUS SURGICAL HISTORY PAST SURGICAL HISTORY Procedure Laterality Date - PAST SURGICAL HISTORY OF 2012 IVC thrombectomy - PAST SURGICAL HISTORY OF 2012 b/l iliac v. 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 - Iv Contrast [Iodine] Other: See Comments shuts kidneys down per patient - Rituximab Other: See Comments Elevated cardiac enzymes MEDICATIONS Current hospital medications: senna 8.6 mg tab(s) (SENOKOT) 8.6 mg ORAL/FEEDING TUBE BID pantoprazole DR 40 mg tab(s) (PROTONIX) 40 mg ORAL DAILY (6 AM) ondansetron 8 mg tab(s) (ZOFRAN) 8 mg ORAL q 8 H PRN diphenhydrAMINE 50 mg (BENADRYL) 50 mg ORAL/FEEDING TUBE q 6 H PRN [START ON 10/27/2017] sulfamethoxazole-trimethoprim 400-80 mg 2 tablet (BACTRIM,SEPTRA) 2 tablet ORAL/FEEDING TUBE - predniSONE (DELTASONE) tab(s) 80 mg 80 mg ORAL/FEEDING TUBE DAILY gabapentin 100 mg cap(s) (NEURONTIN) 100 mg ORAL q 12 H hydrocortisone sodium succinate (PF) 100 mg injection (Solu- CORTEF) 100 mg INTRAVENOUS q 4 H PRN sevelamer carbonate 800 mg tab(s) (RENVELA) 800 mg ORAL TID w MEALS HYDROmorphone WAITER/WAITRESS CABIN CLASS 0.5 mg/mL in NaCl 0.9% 100 mL INTRAVENOUS CONTINUOUS diphenhydrAMINE 50 mg injection (BENADRYL) 50 mg INTRAVENOUS q 4 H PRN NaCl 0.9% iv infusion 5-30 mL/hr INTRAVENOUS CONTINUOUS 0.9% NaCl 3-5 mL 3-5 mL INTRAVENOUS q 12 H insulin regular human injection (short acting) (NovoLIN R,HumuLIN R) SUBCUTANEOUS q 6 H insulin regular 250 units in NaCl 0.9% 250 mL iv infusion - ICU NOMOGRAM 0.5-30 Units/hr INTRAVENOUS CONTINUOUS insulin regular human iv bolus 2-10 Units 2-10 Units INTRAVENOUS PRN dextrose 50% in water 25-50 mL syringe 12.5-25 g INTRAVENOUS PRN dextrose 40 % 15 g 15 g ORAL PRN glucagon 1 mg injection (GLUCAGEN) 1 mg SUBCUTANEOUS PRN acetaminophen 650 mg tab(s) (TYLENOL) 650 mg ORAL/FEEDING TUBE q 6 H PRN acetaminophen 650 mg suppository (TYLENOL) 650 mg RECTAL q 6 H PRN FAMILY HISTORY FAMILY HISTORY Problem Relation Age of Onset - Breast Cancer Mother spine BRCA neg - Ovarian cyst [OTHER] Mother - ovarian cyst [OTHER] Sister - Thyroid No Family History SOCIAL HISTORY Social History Marital status: Spouse name: Years of education: Number of children: Occupational History Occupation 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 Social History Main Topics Smoking status: Never Smoker Smokeless status: Never Used Alcohol use: No Drug use: No Sexual activity: Not Currently PHYSICAL EXAMINATION: ECOG Status: Temp (24hrs), Av ?C (98.6 ?F), Min:36.4 ?C (97.5 ?F), Max:38.6 ?C (101.5 ?F) 10/26/17 0500 10/26/17 0600 10/26/17 0700 10/26/17 0820 BP: 151/72 144/66 144/71 Pulse: 103 108 97 Resp: 23 21 13 Temp: 38.6 ?C (101.5 ?F) TempSrc: Oral SpO2: 97% 97% 97% Weight: 114.3 kg (251 lb 15.8 oz) Height: Intake/Output Summary (Last 24 hours) at 10/26/17 0838 Last data filed at 10/26/17 0754 Gross per 24 hour Intake 501 ml Output 5 ml Net 496 ml General: Alert, NAD. HEENT: Grossly PERRLA, EOMI, anicteric Heart/CV: Grossly RR Lungs/Resp/Chest: Normal chest wall movement. Abd: Grossly ND, no HSM, no other masses Extremities/Skin: No rashes appreciated Neuro/Psych: Follows commands appropriately. CN 2-12 grossly intact MSK: Grossly intact ROM and normal strength in b/l UE and LE. Lymph: Grossly no cervical, axillary LAD LABS/IMAGING/PATHOLOGY Recent Labs 10/26/17 0640 10/26/17 0020 10/25/17 1814 10/25/17 0853 10/25/17 0500 10/23/17 0630 10/16/17 2330 10/15/17 2310 WBC -- 21.82* 22.45* 19.99* 21.88* < > 17.22* < > 7.66 < > 5.73 HB 5.5* 6.6* 7.7* 6.7* 7.0* < > 4.8* < > 9.2* < > 8.1* MCV -- 86.9 84.9 83.8 84.0 < > 89.1 < > 91.3 < > 90.1 PLT -- 44* 40* 87* 92* < > 187 < > 105* < > 92* ABSNEUT -- -- -- -- 19.47* -- 15.33* -- 7.31 -- 5.36 ABSMONO -- -- -- -- 1.97* -- 0.52 -- 0.30 -- 0.30 < > = values in this interval not displayed. Recent Labs 10/26/17 0020 10/25/17 0500 10/24/17 2230 10/24/17 1355 10/24/17 0405 10/23/17 0630 10/22/17 0412 NA 125* 125* 128* 129* -- < > 139 138 K 5.4* 5.5* 5.0 6.0* -- < > 4.1 3.8 CHLOR 83* 85* 86* 89* -- < > 97* 93* CO2 20* 25 24 27 -- < > 31 34* BUN 63* 75* 77* 73* -- < > 63* 63* CREAT 2.84* 2.86* 2.77* 2.55* -- < > 1.35 1.38* ALB 3.2* 3.0* -- -- -- -- 3.2* 3.5* TPROT 4.9* 4.7* -- -- -- -- 4.3* 5.1* CA 8.0* 7.8* 7.6* 7.9* -- < > 8.0* 8.5 MG -- 2.1 -- -- 2.1 -- 2.0 2.1 ALT 95* 106* -- -- -- -- 9 13 AST 63* 73* -- -- -- -- 14 19 TBILI 1.1 0.8 -- -- -- -- 0.4 0.4 < > = values in this interval not displayed. Recent Labs 10/26/17 0020 10/22/17 0412 10/21/17 0356 10/20/17 0415 10/13/17 1300 09/29/17 1804 09/18/17 1236 APTT 26.8 -- -- -- -- 30.3 -- 33.8* 28.9 PTSEC 10.5 11.5 11.1 11.5 < > 19.8* < > 20.3* 14.6* INR 1.0 1.1 1.1 1.1 < > 2.0* < > 2.1* 1.4* < > = values in this interval not displayed. A/P: 27 y/o female?with PMHx of Triple-positive Anti-phospholipid Syndrome diagnosed in 2013?(catastrophic APS complicated by PE/DVT), needing plasmapheresis q2 weeks,?Diffuse Alveolar Hemorrhage (On prednisone and Cytoxan), who was admitted to MICU for further management of alveolar hemorrhage s/p intubation. ? Most recent APS antibody titers (09/18) were: ACL IgG 61 and Anti-B2GP1 IgG >150. ?? -Patient is scheduled for next plasma exchange on 10/16 (Monday) and 10/18 (Monday). No need for urgent plasma exchange. - Please hold coumadin given concern for alveloar hemorrhage -Agree with Solumedrol 250mg Q12H for diffuse alveolar hemorrhage. - Please obtain B/L lower extremities doppler to rule out any DVT -Thrombocytopenia multifactorial, 2/2 increased consumption in the setting of APS and drug effect from Cytoxan. Monitor CBC daily, transfuse if platelets<50,000 given diffuse alveolar hemorrhage. Pt discussed with Juan Christopher MD Fellow, Hematology and Medical Oncology Pager: [phone] Catherine Oh MD, MD 10/26/2017 1:28 PM Signed CONSULT: NEPHROLOGY SERVICE SERVICE DATE: 10/26/2017 SERVICE TIME: 9:04 AM REASON FOR CONSULT: I am asked to see this patient in consultation for my opinion regarding CAPRICE. My recommendations will be communicated by way of shared medical record. REQUESTING PHYSICIAN: Brenda Houston MD PRIMARY CARE PHYSICIAN: PEYTON ROGERS MD Subjective CHIEF COMPLAINT: CAPRICE HPI: Ms. 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 She was recently admitted from 10/13-10/22 with alveolar hemorrhage, s/p PLEX on 10/16 and 10/18. CT of the abdomen showed extensive retroperitoneal hemorrhage with mass effect on the left kidney, and had embolization of L3 artery which was found to be bleeding, and reportedly got 4 units of PRBC at the OSH. She received IV contrast with this. She was also reported to be mildly hypotensive with decreasing urine output. Her baseline Cr is 1.2-1.5. UA shows 100 protein and large amount of Hg. She reportedly had IHD yesterday per Nephrology at the OSH. Nephrology was consulted for management of CAPRICE. ? Duration (when): Appears at least 10 days ? Location (where): kidneys ? Severity (ex: creat 4.5, BP 200/100): Cr 2.84 ? Quality (ex: sharp, dull): N/A ? Context (ex: activity at onset or related to condition): contrast administration ? Timing (ex: continuous, intermittent): continuous ? Modifying factors (ex: medications, interventions): dialysis ? Associated signs AND symptoms (ex: edema, SOB): edema PAST MEDICAL HISTORY Diagnosis Date - (HFpEF) heart failure with preserved ejection fraction (HCC) 02/20/2016 HFpEF w last EF 50-55% On Torsemide, coreg, hydralazine and imdur at home No signs of acute exacerbation on admission Plan: -Continue home medications - Anasarca 11/29/2013 - Anemia 03/10/2015 Chronic microcytic anemia. 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 Thrombosis, and Diffuse Alveolar Hemorrhage. On Warfarin and PLEX (Twice Weekly)? Plan: -Warfarin 5mg qday-holding for planned EGD on 01/11 d/t supra therapeutic INR -Cont. PO Prednisone 10mg MWFS and 5mg TTS -Pantoprazole for GI PPx of Above -Apharesis was supposed to be yesterday, will contact plasmapheresis team on recommendations - Antiphospholipid syndrome (HCC) - Catastrophic Antiphospholipid antibody syndrome 11/09/2013 - Cholelithiasis 01/11/2017 Likely cause of recent pancreatitis. Plan: Per general surgery, no acute surgical intervention at this time. Will await results of EGD. If active gastritis, favor outpatient cholecystectomy. If no active gastritis on EGD, plan for cholecystectomy this admission. 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8 mL intravenously one time only for 1 dose. Disp: 0.8 mL Rfl: 0 Unknown at Unknown time diphenhydrAMINE (BENADRYL) 50 mg capsule Take 1 capsule by mouth every 6 hours as needed for Itching/Rash. Disp: Rfl: Unknown at Unknown time gabapentin (NEURONTIN) 100 mg capsule Take 1 capsule by mouth three times daily for 7 days. Disp: Rfl: Unknown at Unknown time predniSONE (DELTASONE) 20 mg tablet Take 4 tablets by mouth once daily for 8 days. Disp: 32 tablet Rfl: 0 Unknown at Unknown time ondansetron (ZOFRAN, HYDROCHLORIDE,) 8 mg tablet Take 8 mg by mouth every 8 hours as needed for Nausea/Vomiting. Disp: Rfl: Unknown at Unknown time pantoprazole DR (PROTONIX) 40 mg tablet Take 40 mg by mouth daily at bedtime. Disp: Rfl: Unknown at Unknown time sulfamethoxazole-trimethoprim (BACTRIM DS) 800-160 mg per tablet Take 1 tablet by mouth every Monday,Monday,Monday. Disp: 36 tablet Rfl: 3 Unknown at Unknown time fluticasone (FLONASE) 50 mcg/actuation nasal spray Use 1-2 Sprays in each nostril once daily as needed for Cold/Allergy Symptoms (starting in allergy season). Disp: Rfl: Unknown at Unknown time senna 8.6 mg tab Take 1 tablet by mouth twice daily as needed. Disp: 60 tablet Rfl: 0 Unknown at Unknown time Current hospital medications: senna 8.6 mg tab(s) (SENOKOT) 8.6 mg ORAL/FEEDING TUBE BID pantoprazole DR 40 mg tab(s) (PROTONIX) 40 mg ORAL DAILY (6 AM) ondansetron 8 mg tab(s) (ZOFRAN) 8 mg ORAL q 8 H PRN diphenhydrAMINE 50 mg (BENADRYL) 50 mg ORAL/FEEDING TUBE q 6 H PRN [START ON 10/27/2017] sulfamethoxazole-trimethoprim 400-80 mg 2 tablet (BACTRIM,SEPTRA) 2 tablet ORAL/FEEDING TUBE predniSONE (DELTASONE) tab(s) 80 mg 80 mg ORAL/FEEDING TUBE DAILY gabapentin 100 mg cap(s) (NEURONTIN) 100 mg ORAL q 12 H hydrocortisone sodium succinate (PF) 100 mg injection (Solu- CORTEF) 100 mg INTRAVENOUS q 4 H PRN sevelamer carbonate 800 mg tab(s) (RENVELA) 800 mg ORAL TID w MEALS HYDROmorphone WAITER/WAITRESS CABIN CLASS 0.5 mg/mL in NaCl 0.9% 100 mL INTRAVENOUS CONTINUOUS diphenhydrAMINE 50 mg injection (BENADRYL) 50 mg INTRAVENOUS q 4 H PRN NaCl 0.9% iv infusion 5-30 mL/hr INTRAVENOUS CONTINUOUS iv contrast (radiology procedure) INTRAVENOUS DIRECTED PRN 0.9% NaCl 3-5 mL 3-5 mL INTRAVENOUS q 12 H insulin regular human injection (short acting) (NovoLIN R,HumuLIN R) SUBCUTANEOUS q 6 H insulin regular 250 units in NaCl 0.9% 250 mL iv infusion - ICU NOMOGRAM 0.5-30 Units/hr INTRAVENOUS CONTINUOUS insulin regular human iv bolus 2-10 Units 2-10 Units INTRAVENOUS PRN dextrose 50% in water 25-50 mL syringe 12.5-25 g INTRAVENOUS PRN dextrose 40 % 15 g 15 g ORAL PRN glucagon 1 mg injection (GLUCAGEN) 1 mg SUBCUTANEOUS PRN acetaminophen 650 mg tab(s) (TYLENOL) 650 mg ORAL/FEEDING TUBE q 6 H PRN acetaminophen 650 mg suppository (TYLENOL) 650 mg RECTAL q 6 H PRN ALLERGIES Allergen Reactions - Rhubarb Rash, Hives - Heparin Other: See Comments Per patient history of HIT - was on angiomax however then took l fondaparinux for bridging to coumadin. - Iv Contrast [Iodine] Other: See Comments shuts kidneys down per patient - Rituximab Other: See Comments Elevated cardiac enzymes REVIEW OF SYSTEMS: Constitutional: No fever and No chills Eyes: Reports chronic blurry vision, wears glasses Cardiovascular: No chest pain and No palpitations Respiratory: Reports dyspnea and cough Gastrointestinal: No abdominal pain, had some vomiting Genitourinary: Has zuniga, prior to that denies hematuria or dysuria Musculoskeletal: Chronic pain in groin Neurological: No headache and No seizures Endocrine: No polyphagia and reports thirst Hematologic: Retroperitoneal bleed Objective PHYSICAL EXAM: BP 144/71 Pulse 97 Temp 38.6 ?C (101.5 ?F) (Oral) Resp 13 Ht 160 cm (5' 3) Wt 114.3 kg (251 lb 15.8 oz) SpO2 97% BMI 44.64 kg/m2 Intake/Output Summary (Last 24 hours) at 10/26/17 0904 Last data filed at 10/26/17 0754 Gross per 24 hour Intake 501 ml Output 5 ml Net 496 ml Constitutional: No acute distress and Responsive Eyes: Conjunctiva clear and no scleral icterus Ear, Nose, and Throat: Oropharynx exam moist mucous membranes Neck: No jugular venous distension supple Cardiovascular: Regular ryhthm, tachycardic, S1 and S2, no rubs, or gallops. 2-3+ peripheral edema Respiratory: Mildly course breath sounds anteriorly, normal respiratory effort Abdomen: Soft, distended, positive bowel sounds Neurologic: No asterixis Psychiatric: Alert and oriented x self, place, time, and setting Normal mood/affect Vascular Access: Hemodialysis catheter location: Left Tunneled internal jugular. DATA: Diagnostic tests reviewed for today's visit: Most recent labs and imaging results. Recent Labs 10/26/17 0020 10/25/17 0500 10/24/17 2230 10/24/17 1355 10/24/17 0405 10/24/17 0030 10/23/17 0630 10/22/17 0412 10/21/17 0356 NA 125* 125* 128* 129* -- 130* < > 139 138 138 K 5.4* 5.5* 5.0 6.0* -- 5.9* < > 4.1 3.8 3.8 CHLOR 83* 85* 86* 89* -- 89* < > 97* 93* 93* CO2 20* 25 24 27 -- 26 < > 31 34* 30 BUN 63* 75* 77* 73* -- 69* < > 63* 63* 63* CREAT 2.84* 2.86* 2.77* 2.55* -- 2.05* < > 1.35 1.38* 1.48* GLUC 105* 97 149* 109* -- 154* < > 158* 96 113* ANION 22* 15 18 13 -- 15 < > 11 11 15 CA 8.0* 7.8* 7.6* 7.9* -- 7.8* < > 8.0* 8.5 8.9 P 8.4* 8.6* -- -- 7.8* -- -- -- 2.7 2.8 MG -- 2.1 -- -- 2.1 -- -- 2.0 2.1 2.1 < > = values in this interval not displayed. Recent Labs 10/26/17 0640 10/26/17 0020 10/25/17 1814 10/25/17 0853 WBC -- 21.82* 22.45* 19.99* HB 5.5* 6.6* 7.7* 6.7* HCT -- 19.3* 22.5* 19.1* PLT -- 44* 40* 87* Recent Labs 10/26/17 0020 10/22/17 0412 10/21/17 0356 INR 1.0 1.1 1.1 APTT 26.8 -- -- Recent Labs 10/24/17 0500 10/15/17 1223 10/13/17 1846 COLOR Straw* Yellow Red* CLARITY Hazy* Cloudy* Cloudy* UGLUC 150* Negative Negative UBILI Negative Negative 1+* UKET Negative Negative Negative SPGR 1.009 1.019 >1.030* UHB Large* 1+* 3+* UPH 9.0* 5.0 6.0 UPROT 100* 30* >=300* NITRITES Negative Negative Positive* LEUKEST Negative 1+* 2+* UWBC Negative 0-5 6-10* URBC Many* 3-5* >25* Recent Labs 10/26/17 0229 LACT 1.5 Recent Labs 10/26/17 0640 10/20/17 0415 06/09/17 1024 ALLA -- -- 156.0 -- 363.9* TRANSFERSAT -- -- 9* -- 12* B12 -- -- -- -- 646 HB 5.5* < > 8.9* < > -- < > = values in this interval not displayed. Recent Labs 10/26/17 0020 CA 8.0* P 8.4* ALB 3.2* No results for input(s): BUNRAT, BUNPR, BUNPO in the last 168 hours. No results for input(s): HEPSABQ in the last 1440 hours. Invalid input(s): HEPSABG Recent Labs 10/26/17 0020 10/25/17 0500 10/23/17 0630 TBILI 1.1 0.8 0.4 ALT 95* 106* 9 AST 63* 73* 14 ALKPHOS 54 44 34* No results for input(s): CK, CKMB, TROPT in the last 168 hours. No results for input(s): FK506 in the last 168 hours. No results for input(s): CSA in the last 168 hours. No results for input(s): RAPA in the last 168 hours. 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 She was recently admitted from 10/13-10/22 with alveolar hemorrhage, s/p PLEX on 10/16 and 10/18. CT of the abdomen showed extensive retroperitoneal hemorrhage with mass effect on the left kidney, and had embolization of L3 artery which was found to be bleeding, and reportedly got 4 units of PRBC at the OSH. She received IV contrast with this. She was also reported to be mildly hypotensive with decreasing urine output. Her baseline Cr is 1.2-1.5. She reportedly had IHD yesterday per Nephrology at the OSH. Nephrology was consulted for management of CAPRICE. 1. CAPRICE possibly secondary to contrast induced nephropathy versus ATN also on differential in setting of anemia with retroperitoneal bleed, versus vasculitis given history of DAH and hematuria/proteinuria Baseline Cr 1.2-1.5 Urine studies: UA shows 100 protein and large amount of Hg 2. Electrolytes: hyponatremia, hyperkalemia, hypochloremia, hyperphosphatemia 3. Volume status: hypervolemic 4. Acid-base: AGMA secondary to renal failure 5. Hyperphosphatemia: secondary to renal failure PLAN: - will assess hemodynamic status after patient returns from IR and decide on IHD if stable versus CRRT if hemodynamically unstable or actively bleeding - will examine urine sediment - please check C3 and C4 as well as ANCAs - consider bronchoscopy to rule out alveolar hemorrhage - Strict I/Os, daily weights - Renal diet - Dose Medications for eGFR<10 - Will discuss with staff SIGNATURE: Catherine Oh MD PATIENT NAME: Paloma Cannon DATE: October 26, 2017 TIME: 9:04 AM PAGER: [phone] JUAN PABLO Romo 10/26/2017 1:51 PM Signed CARE MANAGEMENT: ASSESSMENT AND DISCHARGE PLAN SERVICE DATE: 10/26/2017 SERVICE TIME: 9:15A.M. 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 No Advance Directive: Current Advance Directive: None Comb Tender Assisted with AD Completion: Yes Action: Education Provided Health Literacy: 1. How often do you need to have someone help you when you read instructions, pamphlets, or other written material from your doctor or pharmacy? Rarely - 2 2. How confident are you filling out medical forms by yourself? Extremely - 1 If Patient scores > 3 on either question, the following interventions were put into place: Patient did not score > 3 FUNCTIONAL AND COGNITIVE/BEHAVIORAL PRIOR TO ADMISSION: Baseline Mental Status: Alert AND Oriented, Person, Place , Time and Situation Functional Status: Needs Assistance Does Patient Currently Receive Any Community Services or Home Care? None Equipment Prior to Admission: Cane - Unknown type Oxygen 2 liters per minute Wheelchair Has the Patient Been in a Jail Facility in the Past 30 days? No SOCIAL: Living Arrangement: Home Lives With: Spouse Financial Resources: Disabled Primary Contact: Extended Emergency Contact Information Primary Emergency Contact: Morteza Cannon Coy Relation: Spouse Supportive: Yes Other Important Patient Contacts: None Caregiver Assessment: Caregiver is ready, willing and able to meet the patient's needs as recommended by the inter-professional team? TBD Patient's transition needs and plan for meeting these needs: TBD Does the patient have an acute stroke diagnosis, or has the patient had a stroke during this admission? No Medication Adherence: I am convinced of the importance of my prescription medication: Agree completely - 0 I worry that my prescription medication will do more harm than good to me Disagree completely - 0 I feel financially burdened by my [id number] expenses for my prescription medication: Disagree completely - 0 Patient is categorized as low risk < 2 Are you interested in bedside delivery of your medications? Yes Food Concerns: In the Last Month, Have You had Trouble Getting Food? No trouble getting food During the Last Month, Have You Worried Whether Your Food Would Run Out Before You Had Enough Money to Buy More? No Is the Patient Psychosocially Complex? No ASSESSMENT AND PLAN: Medical Needs: 2 or more chronic diseases Psychosocial Needs: None FREEDOM OF CHOICE EXPLAINED: N/A POTENTIAL TRANSITION PLANS To Be Determined Pt is a 27-year old female, , and lives at home with a supportive . Pt has a PMHx significant for Anti-phospholipid syndrome c/b DVT/PE requiring extensive percutaneous thrombectomy of her IVC and lower extremity veins followed by b/l iliac venous stents and endograft into her IVC, on long-term anti-coagulation (recently changed to fondaparinux from coumadin on 10/13 admission) and IVC, plasmapheresis q2 weeks, prednisone 5mg daily. WINSTON met pt at the bedside, she was alert ans oriented per place, time, situation, person. Pt stated she lives in an apartment with her . Pt claims her apartment is on the first floor that makes it easy to move around in her wheelchair. Apart from wheelchair, pt also uses cane, and oxygen 2-liters at home. The Oxygen supplying company is [employer] . Pt;s medical goal is for bleeding to stop, and live a normal life. Pt needs are TBD. SIGNATURE: WINSTON Connors PATIENT NAME: Paloma Cannon DATE: October 26, 2017 TIME: 9:40 AM PAGER/CONTACT #: [phone] I have reviewed and agree with the above assessment. Pt admitted to MICU from OSH for ongoing L RP bleeding. Pt's Hgb down to 5.5, CTA showing active extravasation, plan on IR for further management if needed. Possible IHD vs CVVHD. Needs TBD. SW will continue to follow. SIGNATURE: Lisseth VELEZ, FLIPPING MACHINE OPERATOR PATIENT NAME: Paloma Cannon DATE: October 26, 2017 TIME: 9:40 AM PAGER/CONTACT #: [phone] Previous Version ROXY Goodson, Tech 10/26/2017 10:55 AM Signed Radiology Service Progress Note PATIENT NAME: Paloma Cannon DATE OF SERVICE: October 26, 2017 TIME: 10:55 AM PATIENT IDENTITY VERIFICATION COMPLETED USING TWO (2) METHODS: Patient confirmed name verbally and ID band matches.. PATIENT GENDER DATA: Female. status: : No status: NO. PATIENT RELEVANT IMPLANT DATA REVIEWED: Yes RADIOLOGY DEPARTMENT: CT; Exam(s) Completed: CTA Abdomen Pelvis PERIPHERAL IV DATA: Inpatient: see LDA documentation SIGNED BY: ROXY Goodson October 26, 2017 10:55 AM Lili Juarez RN, RN 10/26/2017 10:57 AM Signed Radiology Service Progress Note PATIENT NAME: Paloma Cannon DATE OF SERVICE: October 26, 2017 TIME: 10:55 AM PATIENT WEIGHT: 251 LBS PATIENT IDENTITY VERIFICATION COMPLETED USING TWO (2) METHODS: Patient confirmed name verbally and ID band matches.. PATIENT GENDER DATA: Female. status: : No status: NO. CONTRAST INDUCED NEPHROPATHY RISK FACTORS: Known Chronic Kidney Disease (CKD) CREATININE: Creatinine Date Value Ref Range Status 10/26/2017 2.84 (H) 0.58 - 0.96 mg/dL Final 10/25/2017 2.86 (H) 0.70 - 1.40 mg/dL Final 10/24/2017 2.77 (H) 0.70 - 1.40 mg/dL Final eGFR-All Other Races Date Value Ref Range Status 10/26/2017 20 . Final Comment: eGFR (Estimated GFR) Units of measure: mL/min/1.73 meters squared eGFR is derived from the reexpressed MDRD Study equation using the following parameters: serum creatinine, age, gender and race. The creatinine assay has been calibrated to be traceable to IDMS. An eGFR <60 mL/min/1.73m2 for >3 months is consistent with chronic kidney disease. Refer to KDOQI guidelines for clinical interpretation. In patients with unstable renal function, e.g. those with acute kidney injury, the eGFR may not accurately reflect actual GFR. eGFR- Date Value Ref Range Status 10/26/2017 24 Final P.O.C.T. RESULTS: N/A October 26, 2017 TREATMENT: No Hydration needed: End Stage Renal Disease, patient with set dialysis schedule. and Per [place] plan for possible dislysis today ALLERGIES: Reviewed and unchanged CONTRAST ALLERGY: NO. IV SITE: Inpatient - refer to LDA documentation IV SITE APPEARANCE: Clean,Dry and Intact SIGNED BY: Lili Juarez RN October 26, 2017 10:55 AM Aj Keenan MD 10/26/2017 11:24 AM Incomplete STAFF ADDENDUM: I have reviewed the history, physical obtained and documented by the Fellow and I personally participated in all of the fernandes components. I have discussed the case and management of the patient's care with the Fellow. The following comments revise or confirm relevant fernandes components of the Fellow. 27 yowf, well-known to our service, with CAPS, PAH, readmitted now for new retroperitoneal bleed. She had been discharged 10/22 on short- term fondaparinux (Hx HIT) to be transitioned back to warfarin. Her INR was 1.0 on admission to [facility]. She had severe left flank/abdominal pain, and the CT showed extensive left retroperitoneal hemorrhage with mass effect to left kidney. Also less extensive hemorrhage present along the surface of the spleen and along mesentery. Angiography demonstrated lumbar arterial bleeding sites which were embolized with gelfoam. 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 Vascular surgery consulted--this had been created in 2013 and no intervention was needed. She received emergency transfusion (Hb 4.8)--hypotensive but did not require pressors or intubation. CAPRICE (oliguric) developed after the angiogram and dialysis begun. Patient transferred to [facility] last night. She's been on low-dose prednisone; given pulse methylprednisolone during hospitalization 10 days ago for recurrent pulmonary hemorrhage. Plasma exchange is ongoing q2 weeks. Cyclophosphamide was tried recently but had to be stopped because of myelosuppression. She has chronic thrombocytopenia which fluctuates with her acute bleeding episodes and numerous hospitalizations. Of note, rituximab was given in 2013. She only received 2 doses (hypersensitivity reactions?) but her anti-B2GP1 IgG dropped from >150 to normal over several months. The clinical correlation is unclear, but if the reaction was not severe, another attempt could be made. Her Hb is again 5.5 indicating continued bleeding. Imaging is now limited by contrast-induced CAPR[place], but would try to follow the RP bleed with ultrasound. Transfusion support is all we can offer at this time. Her thrombocytopenia is not severe, but with the drop in Hb, would keep platelet count >50,000. Will check her fibrinogen, d-dimer for D[place]. [id number] Fredi Dykes MD 10/26/2017 11:07 AM Signed PROCEDURAL SEDATION HISTORY AND PHYSICAL EXAM SERVICE DATE: 10/26/2017 SERVICE TIME: 0900 Subjective HPI: This is a 27 year old female who presents with a history of antiphospholipid antibody syndrome hypercoagulability, status post multiple central vein occlusion requiring reconstruction and stenting. ? Patient was recently discharged from hospital, developed acute onset left-sided flank pain. ?Patient returned to the hospital, noncontrast CT performed at outside institution demonstrated 24 cm left retroperitoneal Hematoma, transferred to [facility] for angiography by Dr. Gr which showed L3 lumbar arterial extravasation, embolized on 10/23/2017. The patient was transferred to [facility] for further management and pheresis, but has continued to have decreasing H/H even with transfusion of multiple units of blood products, and continued left flank pain. IR was consulted due to concern for active bleeding. Of note, patient has contrast induced nephropathy due to multiple recent angiograms. CONSENT: ?Risks, benefits, treatment options, potential PAST ANESTHESIA HISTORY: No history of adverse event PAST MEDICAL HISTORY Diagnosis Date - (HFpEF) heart failure with preserved ejection fraction (HCC) 02/20/2016 HFpEF w last EF 50-55% On Torsemide, coreg, hydralazine and imdur at home No signs of acute exacerbation on admission Plan: -Continue home medications - Anasarca 11/29/2013 - Anemia 03/10/2015 Chronic microcytic anemia. 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 Thrombosis, and Diffuse Alveolar Hemorrhage. On Warfarin and PLEX (Twice Weekly)? Plan: -Warfarin 5mg qday-holding for planned EGD on 01/11 d/t supra therapeutic INR -Cont. PO Prednisone 10mg MWFS and 5mg TTS -Pantoprazole for GI PPx of Above -Apharesis was supposed to be yesterday, will contact plasmapheresis team on recommendations - Antiphospholipid syndrome (HCC) - Catastrophic Antiphospholipid antibody syndrome 11/09/2013 - Cholelithiasis 01/11/2017 Likely cause of recent pancreatitis. Plan: Per general surgery, no acute surgical intervention at this time. Will await results of EGD. If active gastritis, favor outpatient cholecystectomy. If no active gastritis on EGD, plan for cholecystectomy this admission. 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 - PAST SURGICAL HISTORY OF Adenoidectomy - PICC LINE INSERT/CONSULT 11/29/2013 - PICC LINE INSERT/CONSULT 03/10/2015 - PICC LINE INSERT/CONSULT 02/20/2016 Prior to Admission medications as of 10/23/17 0602 Medication Sig Last Dose Taking diphenhydrAMINE (BENADRYL) 50 mg capsule Take 1 capsule by mouth every 6 hours as needed for Itching/Rash. Unknown at Unknown time gabapentin (NEURONTIN) 100 mg capsule Take 1 capsule by mouth three times daily for 7 days. Unknown at Unknown time predniSONE (DELTASONE) 20 mg tablet Take 4 tablets by mouth once daily for 8 days. Unknown at Unknown time ondansetron (ZOFRAN, HYDROCHLORIDE,) 8 mg tablet Take 8 mg by mouth every 8 hours as needed for Nausea/Vomiting. Unknown at Unknown time pantoprazole DR (PROTONIX) 40 mg tablet Take 40 mg by mouth daily at bedtime. Unknown at Unknown time sulfamethoxazole-trimethoprim (BACTRIM DS) 800-160 mg per tablet Take 1 tablet by mouth every Monday,Monday,Monday. Unknown at Unknown time fluticasone (FLONASE) 50 mcg/actuation nasal spray Use 1-2 Sprays in each nostril once daily as needed for Cold/Allergy Symptoms (starting in allergy season). Unknown at Unknown time senna 8.6 mg tab Take 1 tablet by mouth twice daily as needed. Unknown at Unknown time ALLERGIES Allergen Reactions - Rhubarb Rash, Hives - Heparin Other: See Comments Per patient history of HIT - was on angiomax however then took l fondaparinux for bridging to coumadin. - Iv Contrast [Iodine] Other: See Comments shuts kidneys down per patient - Rituximab Other: See Comments Elevated cardiac enzymes Objective PHYSICAL EXAM: The remainder of the physical exam is noncontributory. AIRWAY: Patent, uvula visualized, patient able to LUNGS: No increased work of breathing. No audible wheezing. CARDIAC: Deferred. Neuro: Patient fully AxO Abd: Soft, left abdomen and brenda flank/back are tender and sore to palpation Assessment/Plan ASA Class: III - multisystemic disease 27yo F with APS and hx of multiple bleeds s/p multiple embolizations, recently with L flank pain/RP hematoma from L3 lumbar artery bleed, embolized on 10/23, continues to have decreasing H/H and L flank pain. Provisional Diagnosis/Treatment Plan: continued bleed vs. Evolving RP hematoma - CTA stat - Will f/u to decide if angiography is warranted or not SIGNATURE: Fredi Dykes MD PATIENT NAME: Paloma Cannon DATE: October 26, 2017 TIME: 10:58 AM PAGER: [phone] Mari Nova PA-C 10/26/2017 12:15 PM Written MICU PROGRESS NOTE Admission Date: 10/25/2017 Hospital Day # 1 SUBJECTIVE Interval HPI: Worsened. Hgb down to 5.5, concerning for ongoing bleeding. OBJECTIVE Vital Signs (last filed) Range in last 24h Temp: 37 ?C (98.6 ?F) (10/26/17 0835) Temp Min: 36.4 ?C (97.5 ?F) Max: 37.1 ?C (98.7 ?F) Pulse: 104 (10/26/17 1200) Pulse Min: 94 Max: 126 Resp: 26 (10/26/17 1200) Resp Min: 8 Max: 35 BP: 161/79 (10/26/17 1200) BP Min: 124/67 Max: 163/77 MAP Non Invasive (Mean Arterial Pressure): 113 (10/26/17 1200) MAP Non Invasive (Mean Arterial Pressure) Min: 89 Max: 118 No Data Recorded SpO2: 98 % (10/26/17 1200) SpO2 Min: 87 % Max: 99 % Pain Score: 5/10 (10/26/17 1200) Fluid Balance: Intake/Output Summary (Last 24 hours) at 10/26/17 0659 Last data filed at 10/26/17 0600 Gross per 24 hour Intake 500 ml Output 5 ml Net 495 ml Last Weight: 114.3 kg (251 lb 15.8 oz) (10/26/17 0600) Admit Weight: 112.2 kg (247 lb 5.7 oz) (10/25/17 2327) DIET NPO Lines, Drains, and Airways Line Peripheral 10/23/17 1235 Right Antecubital 22 Gauge 2 days Central Line Single Lumen 10/25/17 2314 Tunneled Left Chest less than 1 day Dialysis / Apheresis Double Lumen 10/25/17 2314 Admission to Hospital Left Chest less than 1 day Drain Indwelling Urinary Catheter 10/23/17 0520 Assessment Zuniga 3 days Vent/Oxygen: Supplemental Oxygen: Yes. 5L NC. No Data Recorded Physical Examination Performed Oral Mucosa: Moist mucous membranes Eyes: PERRLA Neck: Unremarkable; No adenopathy or JVD Cardiovascular: Regular tachycardia Abdomen: edematous; L flank pain with palpation Extremities: Edema- Yes Peripheral Pulses- Present all extremities Capillary Refill- less than 3 seconds Skin: Abnormalities- No Breakdown- No Neurologic: Awake, oriented, Alert, Follows commands and Moving all extremities Infusion Medications HYDROmorphone WAITER/WAITRESS CABIN CLASS 0.5 mg/mL NaCl 0.9% Last Rate: 30 mL/hr (10/26/17 0700) insulin regular Diagnostic tests reviewed today: Most recent labs and imaging results. PATIENT CHECKLIST ? Are restraints necessary: No ? Deep vein thrombosis prophylaxis administered? No. Contraindicated. ? Stress ulcer prophylaxis? Yes ? Nasogastric tube? No ? Zuniga catheter necessary? Yes ? Is central line essential? Yes ? Plan discussed with assigned RN? Yes ? Family updated within last 24 hours? Yes Edel Guillen, QUINTEN, LD, CNSC 10/26/2017 12:32 PM Signed NUTRITION THERAPY INITIAL ASSESSMENT SERVICE DATE: 10/26/2017 SERVICE TIME: 10:00 AM RECOMMENDED MALNUTRITION DIAGNOSIS: MILD PROTEIN-CALORIE MALNUTRITION In the context of Acute Illness or Injury based on: Insufficient Energy Intake: <75% for >7 days Fluid Accumulation due to Malnutrition Moderate to Severe Intervention: Advance diet as tolerated to Regular Will order Ensure Clear (pt preference) QID May need to supplement with EN if po intakes continues to be suboptimal (<75% est needs) Monitor and Evaluation: Goal: Meet >75% of estimated needs Discharge Nutrition Recommendations: To be determined Per HPI: Ms. Cannon is a 27 year old female with a PMHx significant for: - Anti-phospholipid syndrome c/b DVT/PE requiring extensive percutaneous thrombectomy of her IVC and lower extremity veins followed by b/l iliac venous stents and endograft into her IVC, on long-term anti-coagulation (recently changed to fondaparinux from coumadin on 10/13 admission) and IVC, plasmapheresis q2 weeks, prednisone 5mg daily - DAH - on cyclophosphamide and prednisone, has had 6 episodes of respiratory decline since 2013, last admission for hemoptysis on 10/13/17, on 2 L at night and with exertion - HIT - CKD 3, 2/2 renal vein thrombosis and contrast-induced nephropathy - HFpEF - HTN - Peripheral neuropathy - post-thrombotic syndrome ? Recent admission 10/13/17-10/23/17 for hemoptysis and SOB, requiring intubation, was transferred to ICU for management of DAH initially requiring pressors. Coumadin was held on admission, and she was started on prophylactic fondaparinux on 10/14. She received PLEX 10/16 and then was extubated. On 10/17, she had left-sided chest pain with increased oxygen requirement, concerning for PE, but no imaging was done as plan was to continue anticoagulation. Plex again on 10/18. ? She had bilateral US no showing acute DVT but + for chronic common femoral DVT. Neurology was consulted for left foot numbness with no intervention recommended. ?? She presented to [facility] ED on 10/23 due to severe stabbing left-sided abdominal pain radiating to left arm/leg. She had a CT abdomen that showed extensive left retroperitoneal hemorrhage with mass effect to the left kidney, and less extensive hemorrhage along the surface of the spleen and along the mesentery. She was transferred to [place] as ICU at [facility] was full. Present Diet Order: NPO Nutritional Intake Prior to Admission: <75% estimated energy needs over the past 1 month(s) Last [facility] admit 10/13 poor appetite/intakes reported. Per d/w patient today, appetite has been down since. Frequent hospitalization over the past 3 months. *rhubarb allergy noted GI symptoms: anorexia, early satiety Abdominal Exam: abdomen is soft and distended Is the patient having any pain that is interfering with oral/enteral intake? No ANTHROPOMETRICS Height: 160 cm (5' 3) Admission Weight: 112.2 kg (247 lb 5.7 oz) Current Weight: 114.3 kg (251 lb 15.8 oz) Body mass index is 44.64 kg/(m2). Weight has increased due to fluid retension Last wts in Epic: 10/13/17 : 104 kg (229 lb 4.5 oz) 10/05/17 : 101.4 kg (223 lb 8 oz) 09/12/17 : 96.6 kg (213 lb) 08/21/17 : 92.7 kg (204 lb 6.4 oz) - Office visit 07/11/17 : 106.6 kg (235 lb) 04/29/17 : 114.5 kg (252 lb 6.8 oz) 02/10/17 : 105.3 kg (232 lb 2.3 oz) 01/04/17 : 117 kg (257 lb 15 oz) 10/18/2016 114.306 kg Orange body weight 52.3 kg Estimated kilocalorie needs: [id number] kilocalories determined by 25-30 kcal/kg ideal body weight Estimated protein needs: 78-105 grams determined by 1.5-2.0 g/kg Orange weight Estimated fluid needs: per MD NUTRITION FOCUSED PHYSICAL EXAM: Unable to perform exam due to patient whole body edema, anasarca, will re-attempt during reassessment. Temperature Max in 24 hours: Temp (24hrs), Av.7 ?C (98 ?F), Min:36.4 ?C (97.5 ?F), Max:37.1 ?C (98.7 ?F) BP 161/79 Pulse 104 Temp 37 ?C (98.6 ?F) Resp 26 Ht 160 cm (5' 3) Wt 114.3 kg (251 lb 15.8 oz) SpO2 98% BMI 44.64 kg/m2 Recent Labs 10/26/17 0640 10/26/17 0020 10/25/17 0500 GLUC -- 105* -- 97 BUN -- 63* -- 75* CREAT -- 2.84* -- 2.86* NA -- 125* -- 125* K -- 5.4* -- 5.5* CHLOR -- 83* -- 85* CO2 -- 20* -- 25 ALB -- 3.2* -- 3.0* HB 5.5* 6.6* < > 7.0* HCT -- 19.3* < > 20.0* WBC -- 21.82* < > 21.88* P -- 8.4* -- 8.6* MG -- -- -- 2.1 < > = values in this interval not displayed. Potential Signs of Inflammation: leukocytosis, hyperglycemia, hypoalbuminemia and tachycardia, critical condition ALLERGIES Allergen Reactions - Rhubarb Rash, Hives - Heparin Other: See Comments Per patient history of HIT - was on angiomax however then took l fondaparinux for bridging to coumadin. - Iv Contrast [Iodine] Other: See Comments shuts kidneys down per patient - Rituximab Other: See Comments Elevated cardiac enzymes Current Facility-Administered Medications: senna 8.6 mg tab(s) (SENOKOT) 8.6 mg ORAL/FEEDING TUBE BID pantoprazole DR 40 mg tab(s) (PROTONIX) 40 mg ORAL DAILY (6 AM) ondansetron 8 mg tab(s) (ZOFRAN) 8 mg ORAL q 8 H PRN diphenhydrAMINE 50 mg (BENADRYL) 50 mg ORAL/FEEDING TUBE q 6 H PRN predniSONE (DELTASONE) tab(s) 80 mg 80 mg ORAL/FEEDING TUBE DAILY gabapentin 100 mg cap(s) (NEURONTIN) 100 mg ORAL q 12 H hydrocortisone sodium succinate (PF) 100 mg injection (Solu- CORTEF) 100 mg INTRAVENOUS q 4 H PRN sevelamer carbonate 800 mg tab(s) (RENVELA) 800 mg ORAL TID w MEALS HYDROmorphone WAITER/WAITRESS CABIN CLASS 0.5 mg/mL in NaCl 0.9% 100 mL INTRAVENOUS CONTINUOUS diphenhydrAMINE 50 mg injection (BENADRYL) 50 mg INTRAVENOUS q 4 H PRN NaCl 0.9% iv infusion 5-30 mL/hr INTRAVENOUS CONTINUOUS iv contrast (radiology procedure) INTRAVENOUS DIRECTED PRN prochlorperazine 5 mg injection (COMPAZINE) 5 mg INTRAVENOUS q 6 H PRN 0.9% NaCl 3-5 mL 3-5 mL INTRAVENOUS q 12 H insulin regular human injection (short acting) (NovoLIN R,HumuLIN R) SUBCUTANEOUS q 6 H insulin regular 250 units in NaCl 0.9% 250 mL iv infusion - ICU NOMOGRAM 0.5-30 Units/hr INTRAVENOUS CONTINUOUS insulin regular human iv bolus 2-10 Units 2-10 Units INTRAVENOUS PRN dextrose 50% in water 25-50 mL syringe 12.5-25 g INTRAVENOUS PRN dextrose 40 % 15 g 15 g ORAL PRN glucagon 1 mg injection (GLUCAGEN) 1 mg SUBCUTANEOUS PRN acetaminophen 650 mg tab(s) (TYLENOL) 650 mg ORAL/FEEDING TUBE q 6 H PRN And acetaminophen 650 mg suppository (TYLENOL) 650 mg RECTAL q 6 H PRN MNT Billing Type: Re-assess/15 min 3 units SIGNATURE: Edel Guillen, RD, LD, [facility] PATIENT NAME: Paloma Cannon DATE: October 26, 2017 TIME: 12:23 PM PAGER: [phone] Mari Nova PA-C 10/26/2017 12:25 PM Written PLAN: - Hold home amlodipine Mari Nova PA-C 10/26/2017 12:29 PM Edited Assessment: not active DAH, recent admission for it PLAN: - Cyclophosphamide on hold until 10/30, continue bactrim - Continue prednisone 80mg qd - Consult nephrology for volume removal Previous Version Mari Nova PA-C 10/26/2017 12:31 PM Written PLAN: - Continue neurontin Mari Noav PA-C 10/26/2017 12:33 PM Written Assessment: CAPRICE on CKDIII secondary to FABY, now on dialysis PLAN: - Nephrology consulted - IHD vs CVVHD - Monitor I/Os - sevelamer TID Mari Nova PA-C 10/26/2017 12:38 PM Edited Assessment: secondary to anticoagulation PLAN: - IR consulted - CTA abdomen/pelvis - IR embolization - Monitor CBC and transfuse as needed - Premedicate for transfusions - Hold anticoagulation - WAITER/WAITRESS CABIN CLASS pump with dilaudid for pain control of L sided pain related to RP bleed Previous Version Mari Nova PA-C 10/26/2017 12:38 PM Written PLAN: - Plasmapheresis q2 weeks - Continue prednisone 80mg daily - Hold anticoagulation until resolution of retroperitoneal bleed - Consult to vascular medicine and hematology Mari Nova PA-C 10/26/2017 12:39 PM Signed SERVICE DATE: 10/26/2017 SERVICE TIME: 12:39 PM MICU PROGRESS NOTE Admission Date: 10/25/2017 Hospital Day # 1 SUBJECTIVE Interval HPI: Worsened. Hgb down to 5.5, concerning for ongoing bleeding. OBJECTIVE Vital Signs (last filed) Range in last 24h Temp: 37 ?C (98.6 ?F) (10/26/17 0835) Temp Min: 36.4 ?C (97.5 ?F) Max: 37.1 ?C (98.7 ?F) Pulse: 104 (10/26/17 1200) Pulse Min: 94 Max: 126 Resp: 26 (10/26/17 1200) Resp Min: 8 Max: 35 BP: 161/79 (10/26/17 1200) BP Min: 124/67 Max: 163/77 MAP Non Invasive (Mean Arterial Pressure): 113 (10/26/17 1200) MAP Non Invasive (Mean Arterial Pressure) Min: 89 Max: 118 No Data Recorded SpO2: 98 % (10/26/17 1200) SpO2 Min: 87 % Max: 99 % Pain Score: 5/10 (10/26/17 1200) Fluid Balance: Intake/Output Summary (Last 24 hours) at 10/26/17 0659 Last data filed at 10/26/17 0600 Gross per 24 hour Intake 500 ml Output 5 ml Net 495 ml Last Weight: 114.3 kg (251 lb 15.8 oz) (10/26/17 0600) Admit Weight: 112.2 kg (247 lb 5.7 oz) (10/25/17 232) DIET NPO Lines, Drains, and Airways Line Peripheral 10/23/17 1235 Right Antecubital 22 Gauge 2 days Central Line Single Lumen 10/25/17 2314 Tunneled Left Chest less than 1 day Dialysis / Apheresis Double Lumen 10/25/17 2314 Admission to Hospital Left Chest less than 1 day Drain Indwelling Urinary Catheter 10/23/17 0520 Assessment Zuniga 3 days Vent/Oxygen: Supplemental Oxygen: Yes. 5L NC. No Data Recorded Physical Examination Performed Oral Mucosa: Moist mucous membranes Eyes: PERRLA Neck: Unremarkable; No adenopathy or JVD Cardiovascular: Regular tachycardia Abdomen: edematous; L flank pain with palpation Extremities: Edema- Yes Peripheral Pulses- Present all extremities Capillary Refill- less than 3 seconds Skin: Abnormalities- No Breakdown- No Neurologic: Awake, oriented, Alert, Follows commands and Moving all extremities Infusion Medications HYDROmorphone WAITER/WAITRESS CABIN CLASS 0.5 mg/mL NaCl 0.9% Last Rate: 30 mL/hr (10/26/17 0700) insulin regular Diagnostic tests reviewed today: Most recent labs and imaging results. PATIENT CHECKLIST ? Are restraints necessary: No ? Deep vein thrombosis prophylaxis administered? No. Contraindicated. ? Stress ulcer prophylaxis? Yes ? Nasogastric tube? No ? Zuniga catheter necessary? Yes ? Is central line essential? Yes ? Plan discussed with assigned RN? Yes ? Family updated within last 24 hours? Yes CARE COORDINATION: Patient Summary: 27 year old female with a PMHx significant for: - Anti-phospholipid syndrome c/b DVT/PE requiring extensive percutaneous thrombectomy of her IVC and lower extremity veins followed by b/l iliac venous stents and endograft into her IVC, on long-term anti-coagulation (recently changed to fondaparinux from coumadin on 10/13 admission) and IVC, plasmapheresis q2 weeks, prednisone 5mg daily - DAH - on cyclophosphamide and prednisone, has had 6 episodes of respiratory decline since 2013, last admission for hemoptysis on 10/13/17, on 2 L at night and with exertion - HIT - CKD 3, 2/2 renal vein thrombosis and contrast-induced nephropathy - HFpEF - HTN - Peripheral neuropathy - post-thrombotic syndrome Transferred from [place] for ongoing L RP bleeding. Major Interval Events: New Events (last 24hrs): 10/26: Transferred from [place]. Hgb down to 5.5. CTA showing active extravasation, going to IR for further management. Plan for Day: - CTA abdomen/pelvis - IR if needed - Trend CBC and transfuse as needed - Hold anticoagulation - Monitor respiratory status - Possible IHD vs CVVHD - Appreciate IR, hematology, vascular medicine, nephrology recs ASSESSMENT AND PLAN Overview, Assessment AND Plan, all Hosp Problems Active Hospital Problems as of 10/26/2017 Noted - Resolved Very Severe Retroperitoneal hematoma 10/26/2017 - Present Overview Retroperitoneal bleed: s/p 7 units PRBCs s/p IR emobolization of left L3 artery at [facility]. Transferred 10/26 for further management. Current Assessment AND Plan Assessment: secondary to anticoagulation PLAN: - IR consulted - CTA abdomen/pelvis - IR embolization - Monitor CBC and transfuse as needed - Premedicate for transfusions - Hold anticoagulation - WAITER/WAITRESS CABIN CLASS pump with dilaudid for pain control of L sided pain related to RP bleed Severe CAPRICE (acute kidney injury) (HCC) 10/08/2015 - Present Overview CAPRICE on CKD III, 2/2 contrast, now requiring dialysis First HD at [facility] on 10/25 with tunneled dialysis catheter placement Current Assessment AND Plan Assessment: CAPRICE on CKDIII secondary to FABY, now on dialysis PLAN: - Nephrology consulted - IHD vs CVVHD - Monitor I/Os - sevelamer TID Moderate Diffuse pulmonary alveolar hemorrhage 11/09/2013 - Present Current Assessment AND Plan Assessment: not active DAH, recent admission for it PLAN: - Cyclophosphamide on hold until 10/30, continue bactrim - Continue prednisone 80mg qd - Consult nephrology for volume removal Mild Peripheral neuropathy 04/14/2016 - Present Current Assessment AND Plan PLAN: - Continue neurontin HTN (hypertension) 10/08/2015 - Present Overview Mildly decreased systolic function, diastolic function indeterminate on 10/13/17 ECHO. Current Assessment AND Plan PLAN: - Hold home amlodipine 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 - Present Anti-phospholipid antibody syndrome (HCC) 10/25/2017 - Present Current Assessment AND Plan PLAN: - Plasmapheresis q2 weeks - Continue prednisone 80mg daily - Hold anticoagulation until resolution of retroperitoneal bleed - Consult to vascular medicine and hematology Plan of care discussed with: Patient, ICU Team, RN and Consultants: IR, vasc medicine, hematology, nephrology SIGNATURE: Mari Nova PA-C PATIENT NAME: Paloma Cannon DATE: October 26, 2017 TIME: 12:39 PM PAGER/CONTACT #: [phone] Progress Notes ( MICU): Nelia Bernal RN 10/23/2017 6:53 AM Addendum Nursing Progress Note Patient Name: Paloma Cannon Patient Location: -[id number] Daily Note: 0510: Pt arrived to ICU bed 36. Pt received total chlorhexidine bath and was connected to all monitors 0513: MD Sylvester paged to make him aware of pt arrival to MICU. 0520: Pt assessed. See flowsheet. 0528: Zuniga placed via verbal order from MD Sylvester. UOP after zuniga removal is 180ml. 0540: MD John at bedside to assess. 0600: RN called ED Xray to come to bedside for CXR to confirm line placement. 0605: Xray at bedside. 0610: Per MD John do not give fentanyl and dilaudid together. 0635: Labs sent 0700: Bedside report in progress to relief RN This note was completed by: Nelia Bernal RN Previous Version Mitchell Phan MD, 10/23/2017 6:53 PM Attested Attestation signed by Kassandra Rios at 10/23/2017 7:41 PM Attending Note I evaluated the patient and personally participated in the fernandes components. I agree with the resident's findings and plan with the following revisions and/or additions: see my separate note Signature: Kassandra Rios MD Date: 10/23/2017 Time: 7:41 PM MICU ADMISSION HISTORY AND PHYSICAL NOTE Admission Date: 10/23/2017 SUBJECTIVE 27 y/o female with hx of anti-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 endograft, on senior living AC with warfarin, plasmapharesis q2 weeks, prednisone 5 mg qD), Diffuse alveolar hemorrhage (on cyclophosphamide), HIT, HFpEF, HTN, CKD, peripheral neuropathy, post-phlebitic syndrome who was admitted to [facility] MICU on 10/13 for alveolar hemorrhage. She was discharged yesterday after she stabilized and reached her home around 6 PM. She started having severe left sided abdominal pain under her breast radiating up to thigh region after that and went back to [facility] ED. She had a CT abdomen done at outside hospital that showed extensive retroperitoneal Hemorrhage on the left with mass effect on the left kidney. Also less extensive blood products present along the surface of the spleen and in the mesentery. She was transferred to MICU as [facility] had no beds. [facility] complained of severe excruciating pain in the left abdomen, 10/10 in intensity, sharp in quality radiating from Left breast to thigh region. Pain is constant per patient and only minimally improved with Dilaudid patient received in [facility]. Assessment and Plan: Neuro: Severe Pain: Will give dilaudid for pain. Peripheral neuropathy: Plan: - Holding Gabapentin Pulmonary: No acute issues Cardiovascular: HFpEF: LVEF ~ 50% Holding meds for now. HTN: Plan: - Hold Amlodipine, hydralazine, torsemide GI and hematology: Severe spontenous abdominal pain, 10/10 in severity, radiating from upper abdomen to thigh. A/w nausea, no vomiting. Denies any trauma. CT abdomen: done at outside hospital that showed extensive retroperitoneal Hemorrhage on the left with mass effect on the left kidney. Also less extensive blood products present along the surface of the spleen and in the mesentery. Plan: Transfuse 2 units of blood, maintain Hb >7. H AND H Q 6 hours. Consult hematology. Renal: CKD (baseline Cr ~ 1.1-1.3): - Cr 1.38 upon presentation Plan: - Monitor BUN/Cr Hematology: - hx of anti-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 endograft, on senior living AC with warfarin, plasmapharesis q2 weeks, prednisone 5 mg qD); randao has Hx of HIT Dx 2013 by [facility] Plan: - Consult hematology, appreciate recs Prophylactic: - PPI FULL CODE PAST MEDICAL HISTORY Diagnosis Date - (HFpEF) heart failure with preserved ejection fraction (HCC) 02/20/2016 HFpEF w last EF 50-55% On Torsemide, coreg, hydralazine and imdur at home No signs of acute exacerbation on admission Plan: -Continue home medications - Anasarca 11/29/2013 - Anemia 03/10/2015 Chronic microcytic anemia. 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 Thrombosis, and Diffuse Alveolar Hemorrhage. On Warfarin and PLEX (Twice Weekly)? Plan: -Warfarin 5mg qday-holding for planned EGD on 01/11 d/t supra therapeutic INR -Cont. PO Prednisone 10mg MWFS and 5mg TTS -Pantoprazole for GI PPx of Above -Apharesis was supposed to be yesterday, will contact plasmapheresis team on recommendations - Antiphospholipid syndrome (HCC) - Catastrophic Antiphospholipid antibody syndrome 11/09/2013 - Cholelithiasis 01/11/2017 Likely cause of recent pancreatitis. Plan: Per general surgery, no acute surgical intervention at this time. Will await results of EGD. If active gastritis, favor outpatient cholecystectomy. If no active gastritis on EGD, plan for cholecystectomy this admission. 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 - PAST SURGICAL HISTORY OF Adenoidectomy - PICC LINE INSERT/CONSULT 11/29/2013 - PICC LINE INSERT/CONSULT 03/10/2015 - PICC LINE INSERT/CONSULT 02/20/2016 FAMILY HISTORY Problem Relation Age of Onset - Breast Cancer Mother spine BRCA neg - Ovarian cyst [OTHER] Mother - ovarian cyst [OTHER] Sister - Thyroid No Family History Social History Substance Use Topics - Smoking status: Never Smoker - Smokeless tobacco: Never Used - Alcohol use No ALLERGIES Allergen Reactions - Rhubarb Rash, Hives - Heparin Other: See Comments Per patient history of HIT - was on angiomax however then took l fondaparinux for bridging to coumadin. - Iv Contrast [Iodine] Other: See Comments shuts kidneys down per patient - Rituximab Other: See Comments Elevated cardiac enzymes Prior to Admission Medications Prescriptions Prior to Admission: predniSONE (DELTASONE) 20 mg tablet Take 4 tablets by mouth once daily for 8 days. Disp: 32 tablet Rfl: 0 COMPOUNDED PRESCRIPTION Outpatient physical therapyPlease call [phone] to make an appointment Disp: 1 Each Rfl: 0 fondaparinux (ARIXTRA) 2.5 mg/0.5 mL syrg Inject 1.5 mL subcutaneously q 24 HR for 10 days. Short term medication to cover while warfarin was on hold Disp: 15 mL Rfl: 0 amLODIPine (NORVASC) 5 mg tablet Take 5 mg by mouth twice daily. Hold for SBP <120 Disp: Rfl: ondansetron (ZOFRAN, HYDROCHLORIDE,) 8 mg tablet Take 8 mg by mouth every 8 hours as needed for Nausea/Vomiting. Disp: Rfl: pantoprazole DR (PROTONIX) 40 mg tablet Take 40 mg by mouth daily at bedtime. Disp: Rfl: cetirizine (ZYRTEC) 10 mg tablet Take 10 mg by mouth twice daily. Disp: Rfl: gabapentin (NEURONTIN) 100 mg capsule Take 400mg in the morning Take 300 mg in the afternoon Take 300mg in the evening Patient may change dose based on pain Disp: 360 capsule Rfl: 2 Unknown at Unknown time torsemide (DEMADEX) 20 mg tablet Take 20 mg by mouth once daily as needed (takes 20-60 mg as needed for chronic edema). Disp: Rfl: Unknown at Unknown time sulfamethoxazole-trimethoprim (BACTRIM DS) 800-160 mg per tablet Take 1 tablet by mouth every Monday,Monday,Monday. Disp: 36 tablet Rfl: 3 Unknown at Unknown time fluticasone (FLONASE) 50 mcg/actuation nasal spray Use 1-2 Sprays in each nostril once daily as needed for Cold/Allergy Symptoms (starting in allergy season). Disp: Rfl: Unknown at Unknown time senna 8.6 mg tab Take 1 tablet by mouth twice daily as needed. Disp: 60 tablet Rfl: 0 Unknown at Unknown time Review of Systems ROS: GENERAL: Negative for malaise, significant weight loss and fever HEENT: No changes in hearing or vision, no nose bleeds or other nasal problems NECK: Negative for lumps, goiter, pain and significant neck swelling RESPIRATORY: Negative for cough, wheezing and shortness of breath CARDIOVASCULAR: Negative for chest pain, leg swelling and palpitations GI: has severe Abdominal pain, see HPI SKIN: has multiple bruises on right Arm. NEURO: Negative All other systems negative. OBJECTIVE Admission Weight: . No weight on file for this encounter. Vital Signs Temp: 36.5 ?C (97.7 ?F) (10/23/17 0520) Pulse: 100 (10/23/17 0600) Resp: 17 (10/23/17 0600) BP: 126/76 (10/23/17 0600) MAP Non Invasive (Mean Arterial Pressure): 91 (10/23/17 0600) SpO2: 99 % (10/23/17 0600) Pain Score: 10/10 (10/23/17 0520) Diet DIET NPO Infusion Medications Lines, Drains, and Airways Line Central Line Single Lumen Non-tunneled Left Chest -- days Dialysis / Apheresis Double Lumen Admission to Hospital Non- tunneled Left Chest -- days Drain Indwelling Urinary Catheter 10/23/17 0520 Assessment Zuniga less than 1 day Physical Examination Performed Oral Mucosa: Dry mucous membranes Feeding Tube: No Eyes: PERRLA Neck: Unremarkable; No adenopathy or JVD Cardiovascular: Regular rhythm Relevant Hemodynamic Data: Respiratory: Clear to auscultation O2 Therapy: Nasal Cannula (10/23/17 0520) No Data Recorded Abdomen: Very tender abdomen more on the left side, has guarding. Extremities: Edema- No Peripheral Pulses- Present all extremities Capillary Refill- less than 3 seconds Neurologic: Awake, oriented and Alert Diagnostic tests reviewed: Most recent labs and imaging results. Labs: CBC, Coags, BMP, Mg, Phos Recent Labs 10/22/17 1245 10/22/17 0412 10/21/17 0356 WBC 18.78* 9.05 11.41* HB 8.3* 7.5* 8.7* HCT 27.5* 24.6* 28.1* PLT 223 163 187 INR -- 1.1 1.1 NA -- 138 138 K -- 3.8 3.8 CHLOR -- 93* 93* CO2 -- 34* 30 BUN -- 63* 63* CREAT -- 1.38* 1.48* GLUC -- 96 113* CA -- 8.5 8.9 MG -- 2.1 2.1 P -- 2.7 2.8 CSF AND Dilantin Liver Function, Amylase, AND Lipase Recent Labs 10/22/17 0412 10/21/17 0356 TPROT 5.1* 5.9* ALB 3.5* 3.9 ALT 13 7 AST 19 15 ALKPHOS 38 45 TBILI 0.4 0.4 ABGs PATIENT CHECKLIST ? Are restraints necessary: No ? VTE prophylaxis administered? Yes ? Stress ulcer prophylaxis? Yes ? On sedation?: No ? Pain addressed?: Yes ? Zuniga catheter necessary? Yes ? Is central line essential? No ? Plan discussed with assigned RN? Yes ? Family updated within last 24 hours? No Mitchell Phan MD October 23, 2017 6:18 AM Previous Version Aline Munoz RT, Tech 10/23/2017 6:13 AM Signed Radiology Service Progress Note PATIENT NAME: Paloma Cannon DATE OF SERVICE: October 23, 2017 TIME: 6:13 AM PATIENT IDENTITY VERIFICATION COMPLETED USING TWO (2) METHODS: Patient confirmed name verbally and ID band matches.. PATIENT GENDER DATA: Female. status: : No status: N/A PATIENT RELEVANT IMPLANT DATA REVIEWED: Not Applicable RADIOLOGY DEPARTMENT: General X-ray: Exam(s) Completed: Chest X-Ray PERIPHERAL IV DATA: Not applicable SIGNED BY: RT Richardson October 23, 2017 6:13 AM Kassandra Rios MD 10/23/2017 7:[address] FRED STONE, SR. HOSPITAL STAFF PHYSICIAN NOTE OF PERSONAL INVOLVEMENT IN CARE I have reviewed the history and physical examination obtained and documented by the resident and I personally participated in the fernandes components. I have discussed the case and management of the patient's care. The following comments revise or confirm relevant fernandes components of the note. HPI: Ms. 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 Ms. Cannon was recently discharged from [facility] where she was admitted 10/13- for DAH requiring Mechanical ventilation with paralysis, IV steroids, and PLEX, this was her 6th episode of respiratory failure due to the same. She was discharged on Fondoparinux. She stated that just after arriving home, she felt an acute sharp pain starting below my left breast going all the way down and to my back, very severe 10/10, associated with nausea. She denies trauma or carrying a heavy object. No fever or chills. No prior similar episodes. Ms. Cannon presented to [facility] ED where she was found to have a retroperitoneal bleeding on CT and Hb dropped to 5.7 g/dL. IMPRESSION: I am seeing Ms. 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 on Prednisone, Cyclophosphamide, and recently admitted to [facility] 10/13- requiring mechanical ventilation and PLEX), DVT/PE?needing extensive percutaneous thrombectomy of her IVC and lower extremity veins followed by placement of B/L?iliac venous?stents and an?endograft into her IVC, on long-term AC, HIT, CKD III, HTN, HFrEF, peripheral neuropathy, post phlebitic syndrome, for the management of: Acute blood loss anemia due to retroperitoneal bleeding: Presented with Hb 5.[address] report: extensive retroperitoneal hemorrhage on the left, with mass effect on the left kidney,. Less extensive blood products are also present along the surface if the spleen and the mesentery. Bibasilar alveolar disease. Acute hypoxemic respiratory failure: Currently on 2 LPM in the setting of recent DAH requiring Mechanical ventilation and PLEX. 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 Consult hematology - NPO for now - O2 supplement for sat > 90%. - Pain control Patient Updated This patient has a high probability of sudden, clinically significant deterioration, which requires the highest level of physician preparedness to intervene urgently. I managed/supervised life or organ supporting interventions that required frequent physician assessment. I devoted my full attention to the direct care of this patient for the amount of time indicated below. Time I spent with family or surrogate(s) is included only if the patient was incapable of providing the necessary information or participating in medical decision making. Time devoted to teaching and to any procedures I billed separately is not included. Time spent providing critical care services: 35 minutes. SIGNATURE: Kassandra Rios MD [facility] P[facility]:[phone] DATE of SERVICE: October 23, 2017 Lynne Sprague, RN, RN 10/23/2017 7:29 AM Signed Nursing Progress Note Patient Name: Paloma Cannon Patient Location: [place] [id number]/-[id number] Daily Note: 0729 Text paged Deepa WATERS R: Bed 36: Hgb=4.8. Thanks. Please advise. Lynne This note was completed by: JEFF Rizvi MD 10/23/2017 2:[address] FRED STONE, SR. HOSPITAL STAFF PHYSICIAN NOTE OF PERSONAL INVOLVEMENT IN CARE I have seen and examined the patient, reviewed the progress note completed by the nurse practitioner, and agree with the history, exam, and assessment/plan, with the following exceptions/additions. If there are fernandes items that I feel deserve particular emphasis, I have outlined them below. Please refer to the nurse practitioner note for full details, including a summary of our mutually agreed upon findings, assessment/plan, and recommendations. IMPRESSION: 27 y.o. 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 PLAN: Acute hypoxic resp failure - CXR w/o acute changes, currently on 4L O2 NC, titrate O2 down as able. HFpEF - holding home diuretics given acute bleed. Acute blood loss anemia due to retroperitoneal bleeding - CT Abdomen/Pelvis c/w acute hemorrhage, PIV x 2, transfuse pRBC's, will need platelets + FFP if requires massive transfusion, IR to evaluate. HIT - follow labs, Heme to see. APS s/p DAH - holding AC (see above). Hematology consult re: further recs in setting of needing transfusions. Will continue Prednisone + Bactrim PPx. HTN - hold home meds for now given acute bleeding. CKD 3 - baseline Cr 1.4, follow labs. Discussed risks/benefits of IR study which may require contrast. Advised that at this time, I feel as though stopping the acute bleed would take priority over contrast which may affect renal function as it if continues it may be life-threatening, pt in agreement and wishes to proceed. Neuropathy - holding Gabapentin (home med). GERD - PPI (home med). DVT PPx - SCD's, holding meds due to acute hemorrhage. Patient/Family Updated: d/w pt at bedside. Attempted to call pt's Morteza at , left message. MICU team able to update pt's father earlier today. This patient has a high probability of sudden, clinically significant deterioration, which requires the highest level of physician preparedness to intervene urgently. I managed/supervised life or organ supporting interventions that required frequent physician assessment. I have devoted my full attention to the direct care of this patient for the amount of time indicated below. I have included time that I spent with family or surrogates only if the patient was incapable of providing the necessary information or participating in medical decision making. This critical care time is exclusive of any time devoted to teaching or for separately billable procedures. Critical Care Documentation: The patient has the following organ/system impairment(s): Acute blood loss, Coagulopathy and Complex life-threatening medical problem(s) Time spent providing critical care services: 30 minutes. SIGNATURE: Sapna Wyatt MD [facility]:[phone] DATE of SERVICE: 10/23/17 TIME of SERVICE: 9:01 AM Sunshine Gr MD 10/23/2017 9:52 AM Signed UPDATED PROCEDURAL SEDATION HISTORY AND PHYSICAL EXAMINATION SERVICE DATE: 10/23/2017 SERVICE TIME: 9:51 AM PHYSICAL EXAM MUST BE COMPLETED ON ADMISSION The History and Physical (completed in the past 30 days) has been reviewed and the patient has been examined. The contents accurately reflect the patient's condition with the following additions or revisions since the HANDP was completed. ASA Class: ASA Class:: Patient with severe systemic disease - Emergency Procedure Examination indicates no changes. AIRWAY: Airway Visualization of Uvula: Yes Mouth opening greater than 2 fingerbreadths: Yes Neck Full Range of Motion: Yes LUNGS: Diminished, bibasilar crackles CARDIAC: Normal S1 and S2; tachycardic Provisional Diagnosis/Treatment Plan: L RP angiogram with embo SEDATION GOAL: Moderate This HANDP can be found in the attached. SIGNATURE: Sunshine Gr MD PATIENT NAME: Paloma Cannon DATE: October 23, 2017 TIME: 9:51 AM PAGER: [phone] Sunshine Gr MD 10/23/2017 12:01 PM Signed BRIEF OPERATIVE / PROCEDURE NOTE SURGERY/PROCEDURE DATE: 10/23/17 INCISION/PROCEDURE START TIME: INCISION CLOSE/PROCEDURE END TIME: SURGEON(S)/PROCEDURALIST(S) AND PROFESSOR OF CHEMICAL ENGINEERING(S): Maximino Gr - Primary SURGERY/PROCEDURE(S): L RP angiogram and L3 embolization ANESTHESIA: Moderate sedation FINDINGS: Bleeding from multiple foci of from left L3, embolized with gelfoam and coils. Large ADHESIVE SPRAYER->CFV fistula ESTIMATED BLOOD LOSS: Minimal SPECIMENS: None COMPLICATIONS: None PRE-OP/PRE-PROCEDURE DIAGNOSIS: Left RP bleed POST-OP/POST-PROCEDURE DIAGNOSIS: Left L3 hemorrhage, L ADHESIVE SPRAYER-CFV AVF SIGNATURE: Sunshine Gr MD PATIENT NAME: Paloma Cannon DATE: October 23, 2017 TIME: 11:57 AM PAGER/CONTACT #: Mary Marin RN, RN 10/23/2017 12:35 PM Signed PICC/VASCULAR ACCESS PROGRESS NOTE SERVICE DATE: 10/23/2017 SERVICE TIME: [address] peripheral iv. #22 gauge 1 3/4 inch iv inserted into right antecubital under ultrasound guidance. Brisk blood return noted. Flushed with 10 cc of normal saline without complication. SIGNATURE: Mary Marin RN PATIENT NAME: Paloma Cannon DATE: October 23, 2017 TIME: 12:35 PM PAGER/CONTACT #: [phone] Ghazala Bailey 10/23/2017 2:22 PM Signed MEDICATION HISTORY AND MEDICATION RECONCILIATION Patient Name:Karyna Cannon : 1990 Source of history:[facility] records: discharge note on 10/22/17 Medication Nonadherence Identified: No barriers noted The above information represents the best possible medication history: Yes Reconciliation completed? Yes All WARP DYEING VAT TENDER medications addressed by LIP -Amlodipine; zyrtec; fondaparinux and gabapentin were held. Additional comments: N/A Allergies: ALLERGIES Allergen Reactions - Rhubarb Rash, Hives - Heparin Other: See Comments Per patient history of HIT - was on angiomax however then took l fondaparinux for bridging to coumadin. - Iv Contrast [Iodine] Other: See Comments shuts kidneys down per patient - Rituximab Other: See Comments Elevated cardiac enzymes Preferred Pharmacy: [facility] [place] [facility] pharmacy Current WARP DYEING VAT TENDER Medications: Prior to Admission medications as of 10/23/17 0602 Medication Sig Last Dose Taking predniSONE (DELTASONE) 20 mg tablet Take 4 tablets by mouth once daily for 8 days. COMPOUNDED PRESCRIPTION Outpatient physical therapy Please call [phone] to make an appointment fondaparinux (ARIXTRA) 2.5 mg/0.5 mL syrg Inject 1.5 mL subcutaneously q 24 HR for 10 days. Short term medication to cover while warfarin was on hold amLODIPine (NORVASC) 5 mg tablet Take 5 mg by mouth twice daily. Hold for SBP <120 ondansetron (ZOFRAN, HYDROCHLORIDE,) 8 mg tablet Take 8 mg by mouth every 8 hours as needed for Nausea/Vomiting. pantoprazole DR (PROTONIX) 40 mg tablet Take 40 mg by mouth daily at bedtime. cetirizine (ZYRTEC) 10 mg tablet Take 10 mg by mouth twice daily. gabapentin (NEURONTIN) 100 mg capsule Take 400mg in the morning Take 300 mg in the afternoon Take 300mg in the evening Patient may change dose based on pain torsemide (DEMADEX) 20 mg tablet Take 20 mg by mouth once daily as needed (takes 20-60 mg as needed for chronic edema). sulfamethoxazole-trimethoprim (BACTRIM DS) 800-160 mg per tablet Take 1 tablet by mouth every Monday,Monday,Monday. fluticasone (FLONASE) 50 mcg/actuation nasal spray Use 1-2 Sprays in each nostril once daily as needed for Cold/Allergy Symptoms (starting in allergy season). senna 8.6 mg tab Take 1 tablet by mouth twice daily as needed. Vlad Soto, Pharmacist October 23, 2017 2:20 PM ROBBI Rollins 10/23/2017 3:33 PM Signed CARE MANAGEMENT: ASSESSMENT AND DISCHARGE PLAN SERVICE DATE: 10/23/2017 SERVICE TIME: 3:01 PM PRIMARY CARE PHYSICIAN: PEYTON ROGERS MD ADMISSION STATUS: Inpatient Needs Prior to Discharge: To Be Determined MEDICAL: Patient/Cyanide Case Hardener Stated Goals: To have reduction in symptoms To improve my functional status To return home to life as it was Health Insurance: [employer] Medicare and Medicaid Health Issues Impacting Discharge Plan: Anti-phospholipid antibody syndrome s/p L RP angiogram and L3 embolization Last Admission Date: Previous admit date: 10/13/2017 Is this Within the Past 30 days? Yes Is This a Planned Readmission? No: Recurrent symptoms of underlying disease Followed Up with Appointment Prior to Admission: Patient scheduled, but readmitted prior Where Did the Patient Come From? Home Intervention Taken to Avoid Future Readmission? To be determined Advance Directive: Health Literacy: 1. How often do you need to have someone help you when you read instructions, pamphlets, or other written material from your doctor or pharmacy? Never - 1 2. How confident are you filling out medical forms by yourself? Extremely - 1 If Patient scores > 3 on either question, the following interventions were put into place: Patient did not score > 3 FUNCTIONAL AND COGNITIVE/BEHAVIORAL PRIOR TO ADMISSION: Baseline Mental Status: Alert AND Oriented, Person, Place , Time and Situation Functional Status: Independent Does Patient Currently Receive Any Community Services or Home Care? None Equipment Prior to Admission: Oxygen 2 liters per minute- through [facility] Has the Patient Been in a Jail Facility in the Past 30 days? No SOCIAL: Living Arrangement: Home Lives With: Spouse Financial Resources: Disabled Primary Contact: Extended Emergency Contact Information Primary Emergency Contact: Morteza Cannon Relation: Spouse Supportive: Yes Other Important Patient Contacts: Family: Name: Morgan Aiken (father) Caregiver Assessment: Caregiver is ready, willing and able to meet the patient's needs as recommended by the inter-professional team? No Caregiver Needed Patient's transition needs and plan for meeting these needs: To be determined Does the patient have an acute stroke diagnosis, or has the patient had a stroke during this admission? No Medication Adherence: I am convinced of the importance of my prescription medication: Agree completely - 0 I worry that my prescription medication will do more harm than good to me Disagree completely - 0 I feel financially burdened by my [id number] expenses for my prescription medication: Disagree completely - 0 Patient is categorized as low risk < 2 Are you interested in bedside delivery of your medications? No Food Concerns: In the Last Month, Have You had Trouble Getting Food? No trouble getting food During the Last Month, Have You Worried Whether Your Food Would Run Out Before You Had Enough Money to Buy More? No Is the Patient Psychosocially Complex? No ASSESSMENT AND PLAN: Medical Needs: 2 or more chronic diseases Psychosocial Needs: None FREEDOM OF CHOICE EXPLAINED: N/A POTENTIAL TRANSITION PLANS Home To Be Determined The patient is currently in the Intensive Care Unit. She was just discharged home from [facility] yesterday. The patient lives with her and was independent prior to admission. She has home oxygen provided through [facility]. No skilled needs are anticipated but SW remains available if any needs are identified. 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 On Fondaparinux 7.5mg and on Prednisone 80mg prior to discharge. She was to taper prednisone on discharge. She underwent Plasma exchange 10/16 and 10/18 and is scheduled again 10/30. After her journey home yesterday she developed severe left flank pain and her brought her to [facility]. Today she had MULTIPLE FOCI OF ACTIVE EXTRAVASATION FROM BRANCHES OF THE LEFT L3 LUMBAR ARTERY and underwent SUCCESSFUL GELFOAM/COIL EMBOLIZATION OF THE MIDPORTION OF THIS ARTERY. She received PRC. PAST MEDICAL HISTORY Diagnosis Date - (HFpEF) heart failure with preserved ejection fraction (HCC) 02/20/2016 HFpEF w last EF 50-55% On Torsemide, coreg, hydralazine and imdur at home No signs of acute exacerbation on admission Plan: -Continue home medications - Anasarca 11/29/2013 - Anemia 03/10/2015 Chronic microcytic anemia. 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 Thrombosis, and Diffuse Alveolar Hemorrhage. On Warfarin and PLEX (Twice Weekly)? Plan: -Warfarin 5mg qday-holding for planned EGD on 01/11 d/t supra therapeutic INR -Cont. PO Prednisone 10mg MWFS and 5mg TTS -Pantoprazole for GI PPx of Above -Apharesis was supposed to be yesterday, will contact plasmapheresis team on recommendations - Antiphospholipid syndrome (HCC) - Catastrophic Antiphospholipid antibody syndrome 11/09/2013 - Cholelithiasis 01/11/2017 Likely cause of recent pancreatitis. Plan: Per general surgery, no acute surgical intervention at this time. Will await results of EGD. If active gastritis, favor outpatient cholecystectomy. If no active gastritis on EGD, plan for cholecystectomy this admission. - CKD (chronic kidney disease) stage 3, GFR 30-59 ml/min 07/06/2016 Baseline SCr 1.5-1.7 Plan: -renally dose medications -avoid nephrotoxic agents - DVT (deep venous thrombosis) (HCC) - Elevated CA-125 11/30/2013 244 - Essential hypertension 10/08/2015 Stable on home medications Plan: -continue to monitor on home meds - 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 Bivalirudin to Warfarin bridging - HIT (heparin-induced thrombocytopenia) ([facility]) - Nontoxic multinodular goiter - Obese - Obesity, Class III, BMI >= 40 (morbid obesity) E66.01 10/18/2016 - Peripheral neuropathy 04/14/2016 - Severe protein-calorie malnutrition (HCC) 12/29/2015 PAST SURGICAL HISTORY Procedure Laterality Date - PAST SURGICAL HISTORY OF 2012 IVC thrombectomy - PAST SURGICAL HISTORY OF 2012 b/l iliac v. 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 - PAST SURGICAL HISTORY OF Adenoidectomy - PICC LINE INSERT/CONSULT 11/29/2013 - PICC LINE INSERT/CONSULT 03/10/2015 - PICC LINE INSERT/CONSULT 02/20/2016 Current Facility-Administered Medications: ondansetron (PF) 4 mg injection (ZOFRAN) 4 mg INTRAVENOUS q 6 H PRN pantoprazole 40 mg injection (PROTONIX) 40 mg INTRAVENOUS DAILY (6 AM) 0.9% NaCl 10 mL 10 mL INTRAVENOUS q 12 H 0.9% NaCl 20 mL 20 mL INTRAVENOUS PRN 0.9% NaCl 10 mL 10 mL INTRAVENOUS q 12 H 0.9% NaCl 20 mL 20 mL INTRAVENOUS PRN HYDROmorphone WAITER/WAITRESS CABIN CLASS 0.5 mg/mL in NaCl 0.9% 100 mL INTRAVENOUS CONTINUOUS hydrocortisone sodium succinate 50 mg injection (Solu-CORTEF) 50 mg INTRAVENOUS ONCE HYDROmorphone 0.2 mg injection (DILAUDID) 0.2 mg INTRAVENOUS ONCE predniSONE (DELTASONE) tab(s) 80 mg 80 mg ORAL DAILY sulfamethoxazole-trimethoprim 800-160 mg 1 tablet (BACTRIM DS,SEPTRA DS) 1 tablet ORAL MO-WE-FR Allergies: Rhubarb; Heparin; Iv Contrast [Iodine]; Rituximab Social History Marital status: Spouse name: Years of education: Number of children: Occupational History 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 HEENT/Neck: No hearing/vision changes; no pain, masses, or swelling. No evidence of sores in the mouth. Respiratory: No cough, productive sputum, hemoptysis, chest pain, shortness of breath or wheezing. Cardiovascular: No palpitations, chest pain, shortness or breath, exertional dyspnea. Gastrointestinal: severe abdominal pain Genitourinary: No dysuria, nocturia, frequency, urgency, hematuria or incontinence. Musculoskeletal: No joint or bone pain: No limitation of motion. No problems with the gait. Neurological: No sensory or motor abnormalities; no headaches or dizziness. Dermatologic: No rash, skin lesions or itching. Psychiatric: No sleep disturbances, mood disorders, depression, etc. Hematologic: see HPI Lymphatic System: No new lymph gland enlargement or new lumps in the body. Endocrine: No heat or cold intolerance, diabetes or other abnormalities The rest of systems reviewed and essentially unremarkable. Physical Examination: General appearance: well appearing, alert, severe abdominal pain. Skin: skin color, texture, turgor normal, no rashes or lesions Head: normal Eyes: Anicteric sclera. Pupils equal round and reactive to light. Extraocular movements intact. Ears: external ears normal Nose/Sinuses: Negative Oropharynx: Lips, mucosa, and tongue normal, teeth and gums normal, oropharynx normal Neck: Supple, no adenopathy; thyroid symmetric, normal size Back: no pain to palpation over spine or costovertebral angles, motor and sensory appear to be normal Lungs: lungs clear to auscultation, no wheezing or rhonchi Heart: RRR without murmur, gallop, or rubs. Abdomen: soft, non-tender. Bowel sounds normal. No masses, organomegaly Extremities: No deformities, edema, or skin discoloration. Good capillary refill. Musculoskeletal: Muscular strength intact Peripheral pulses: Normal Neuro: Sensation grossly intact. Labs: Component Latest Ref Rng AND Units 10/22/2017 10/22/2017 10/23/2017 10/23/2017 4:12 AM 12:45 PM 6:30 AM 12:57 PM WBC 3.70 - 11.00 k/uL 9.05 18.78 (H) 17.22 (H) 17.69 (H) RBC 3.90 - 5.20 m/uL 2.71 (L) 3.03 (L) 1.75 (L) 2.80 (L) Hemoglobin 11.5 - 15.5 g/dL 7.5 (L) 8.3 (L) 4.8 (LL) 8.1 (L) Hematocrit 36.0 - 46.0 % 24.6 (L) 27.5 (L) 15.6 (L) 24.2 (L) MCV 80.0 - 100.0 fL 90.8 90.8 89.1 86.4 MCH 26.0 - 34.0 pG 27.7 27.4 27.4 28.9 MCHC 30.5 - 36.0 g/dL 30.5 30.2 (L) 30.8 33.5 RDW-CV 11.5 - 15.0 % 19.1 (H) 19.1 (H) 19.8 (H) 16.8 (H) Platelet Count 150 - 400 k/uL 163 223 187 130 (L) MPV 9.0 - 12.7 fL 11.8 12.2 10.9 10.4 Neut% % 89.0 Abs Neut (ANC) 1.45 - 7.50 k/uL 15.33 (H) Lymph% % 6.0 Abs Lymph 1.00 - 4.00 k/uL 1.03 [place]% % 3.0 Abs [place] <0.87 k/uL 0.52 Eosin% % 0.0 Abs Eosin <0.46 k/uL 0.00 Baso% % 0.0 Abs Baso <0.11 k/uL 0.00 ANC(includeSEG+BAND) k/uL 15.33 [place] % 1.0 Myelocyte % 1.0 Anisocytosis Present Left Shift Present Basophilic Stippling Occasional Ovalocytes Few Polychromasia Slight Platelet Estimate Platelet estimate adequate Diff Type Manual Diff Protein, Total 6.0 - 8.4 g/dL 4.3 (L) Albumin 3.5 - 5.0 g/dL 3.2 (L) Calcium 8.5 - 10.5 mg/dL 8.0 (L) Bilirubin, Total 0.0 - 1.5 mg/dL 0.4 Alkaline Phosphatase 40 - 150 U/L 34 (L) AST 7 - 40 U/L 14 Glucose 65 - 100 mg/dL 158 (H) BUN 8 - 25 mg/dL 63 (H) Creatinine 0.70 - 1.40 mg/dL 1.35 Sodium 132 - 148 mmol/L 139 Potassium 3.5 - 5.0 mmol/L 4.1 Chloride 98 - 110 mmol/L 97 (L) CO2 23 - 32 mmol/L 31 Anion Gap 9 - 18 mmol/L 11 ALT 0 - 45 U/L 9 eGFR- >60 57 (L) eGFR-All Other Races >60 . 47 (L) Absolute nRBC <0.01 k/uL 0.01 (H) 0.02 (H) Imaging Studies: Assessment: 1. 27 year old female with h/o catastrophic APS diagnosed 2013 complicated by PE/DVT and receiving plasmapheresis q2 weeks, Diffuse alveolar hemorrhage (on Prednisone/Cytoxan) now admitted with retroperitoneal bleed, severe anemia, left flank pain, now s/p embolization at LEFT L3 LUMBAR ARTERY. The bleeding is likely due to fondaparinux she [facility] and has been discontinued. The [facility] is a feature of her APS and she will continue plasmapheresis q 2 weeks and prednisone 80 mg daily; a prednisone taper by 20 mg every four days (with maintenance of prednisone 5 mg daily) is recommended. I discussed the case with her academic support center director at [facility], Dr. Andujar. Sandra Morillo M.D. Lynne Sprague, RN, RN 10/23/2017 7:45 PM Addendum Nursing Progress Note Patient Name: Paloma Cannon [facility] Daily Note: 07 Shift report received from off-going RN. 07 Gemma Maradiaga, lab personnel notified this RN of HgB=10/15. 0729 Text paged Deepa WATERS of most recent HgB as noted above. 0742 Tanika NEWMAN to contact blood bank. 0744 Per Blood bank, will take 2-4 hours until PRBCs available r/t antibodies. Notified Deepa WATERS AND Dr. Welch (Fellow from [facility]). ELLIOTT calls blood bank after discussion w/ Fellow - pt to receive emergent blood. As well, pt to go to IR. 0755 C/o nausea. Zofran given and will give 1mg dilaudid per order. Will discuss w/ Deepa WATERS pre-medicate prior to transfusion. Per pt, takes 100mg Solu-Medrol and 50mg benadryl. 0756 Deepa WATERS to bediside to bedside. 075 Have spoken w/ Kevin Torres, Pharmacist re STAT verification of Solu-Medrol and Benadryl r/t pre-medicating prior to transfusion w/ emergent blood. In process. 08 Clarified pre-medication orders w/ Deepa WATERS as order is for 50 AND 50. Will order another 50mg dose of solu-medrol. Has been given 100mg w/ verbal order from ELLIOTT. Continue to monitor. 08 Discussed LSO w/ pt who states she is difficult to intubate but is agreeable if necessary. Concern re meds given @ 0330/0615/0807 - see MAR. Min RR noted 6. Continue to monitor. 0818 1st unit of PRBCs to bedside. Verified, vitals taken per protocol. Transfusion in progress. Dr. Wyatt to bedside to assess. 0820 Pt signed consent for transfusion (had previously given verbal consent). Emergent blood bank form completed by Dr. Wyatt. DIRECTOR OF HOTEL also at bedside. POC includes IR this AM. 0825 Have spoken w/ Kevin Torres, Pharmacist re dilaudid WAITER/WAITRESS CABIN CLASS. Pending arrival of infusion to MICU. 0835 Per DIRECTOR OF HOTEL, ok for ice chips. W/o s/s of aspiration. Refuses oral care/brushing of teeth at this time. 0845 Have requested MEDIA/INSTRUCTIONAL DESIGNER to request 2nd unit of PRBCs. Procedure for each unit is to run @ 125-150ml/h x15 min then if no obvious reaction, 999ml/h. Tolerating 1st 15 min and 999ml/h rate thereafter. Pending arrival of unit #2. 0850 Bag of Dialudid Delivered to bedside. Have discussed w/ MEDIA/INSTRUCTIONAL DESIGNER POC which includes use of Dilaudid IVP until post IR procedure. 0856 Have spoken w/ DIRECTOR OF HOTEL of need for additional IV access as pt has single lumen Franchesca catheter (as well as apheresis cath). Discussed possible placement in IR. Per DIRECTOR OF HOTEL, after consulting w/ Dr. Wyatt, no additional central line placement to be placed - iff need be, will use apheresis catheter. Notified DIRECTOR OF HOTEL of RR min noted bbm - encouraged pt to beathe- concern for additional 0.5mg dilaudid order as pt somnolent after 1mg dilaudid and 50mg bendadryl. Continue to monitor. Hold 0.5mg for now and reassess post procedure. 0905 Per DIRECTOR OF HOTEL, POC includes RN to attempt PIV - no central line to be placed in IR 09 Have provided brief report to Bianca in IR including Dilaudid/Fentanyl/Benadryl/Solu-Medrol and PRBC transfusions for HgB 4.8. POC includes transport personnel on the way. 09 Have updated another IR personnel to same info as that provided to Bianca as noted above. 09 POC includes CBC upon return to MICU post IR procedure. 2nd unit of PRBC in progress. As well, will reassess need for WAITER/WAITRESS CABIN CLASS v. IVP of dilaudid post procedure. 0923 Parted MICU for IR. 0936 10ml blood w/drawn from dual ports of apheresis catheter. Per pt, indwelling Na Citrate - removed in process and ports flushed w/ 20ml NS each. Dr. Gr updated to doses of pain meds at 0330/0615/0807 + bendaryl this date, pt's allergy to contrast dye and pt pre-medicated prior to transfusion of PRBC of 100mg Solu-Medrol and 50mg benadryl, reviewed HANDH results at admit (4.8). Current SpO2 100% on 4L/min. 0939 Have notified Katharina NEWMAN to confirm w/ Deepa WATERS that additional 2 units of PRBCs should also be given emergently. 0956 [facility] notifies RN of need for emergent transfusion as noted above - [facility] to notify Blood Bank. 1028 3rd unit of PRBCs up at this time. Verified and vitals per protocol. Have called business associateEllen to inquire if imaging disc from [facility] present in pt's chart or belongings per request of Dr. Gr. 1039 No disc available but CT results/report brought to [facility] by business associate for Dr. Gr's review. 1100 Notified [facility] to request 4th unit of PRBCs. IR procedure continues in progress. 1123 Have spoken w/ Kevin Torres, Pharmacist re indwelling citrate per pt. Reviewed pt's allergy to Heprain (RONNIE) - Pharmacist to discuss w/ colleagues and f/up w/ RN. 1134 Kevin Torres notifies this RN of availability of Na Citrate 3ml syringes used for indewlling catheters. Order #[id number]. Will have DIRECTOR OF HOTEL order so that upon arrival in MICU, can indwell apheresis cath ports. 1145 Have notified deepa WATERS of order # and amount required (total 3.2ml) of Na Citrate as noted above. As well, updated to IR procedure as known by this RN. Per Dr. Gr, pt may be required for transfer to [facility] for complex vascular surgery as Dr. Gooden is unable to stent vessel in L groin area. 1150 Charge contacted this RN in IR for updates. Procedure in progress. 1202 Post procedure instructions per Dr. Gr include HOB < 10 and R leg to be extended until 1400. 1204 RN notified that pt had received 2mg versed and 50mcg fentanyl. 1222 TIAGO Hernandez has placed 22 PIV iRAC under [employer] w/ blood return and flush. 1235 Returned to MICU post procedure. Pt drowsy. 1240 Have spoken W/ Kevin Brian re Na Citrate post well treatment offsider, Katharine (pt has dialysis cath) and pt's allergy to heparim. 1242 and Father at bedside.Updated to pt's condition and answered questions as able. In particular, 4 units of PRBCs given, Coils placed in IR, to receive dilaudid WAITER/WAITRESS CABIN CLASS. Per pt, man-made fistulas in groin for increased blood flow to LEs. Pe rHusband, pt is to have next apheresis 10/30 and pt's PLTs are kept @ < 100. Will notify Dr. Wyatt as will need to coordinate transfer to [facility] for such. 1255 Dr. Morillo updated to pt's condition and in particular, pt has been to IR w/ coils, received 4 units for HgB 4.8 and due for apheresis 10/30. 1305 0.5mg dilaudid to be given for continued c/o pain. Will begin WAITER/WAITRESS CABIN CLASS Dialudid pump fernando. Dr. Morillo parted bedside. Awaiting arrival of WAITER/WAITRESS CABIN CLASS pump to bedside. 1307 Blood sample drawn from Franchesca Cath, labeled, verified and sent to lab via tube system (CBC). 1313 1.6ml Na Citrate placed in each apheresis port. Pt on 3L NC. Continue to monitor. [id number] R groin noted to be bleeding - moderate amt. Using ABD, pressure applied to R groin for all of this time. Bleeding stopped. Continue to monitor. 1410 R groin assessed - no further bleeding. W/o evidence of hematoma. Will continue to monitor. 1415 Reports some relief w/ WAITER/WAITRESS CABIN CLASS, however, SpO2 low 90s thus increased FiO2 to 4L/min. 1428 ELLIOTT notified of most recent HANDH 02/08/24.2 and pt request for diet. Tolerating sips and chips. Deepa WATERS to order reg diet. 1338 WAITER/WAITRESS CABIN CLASS Dilaudid began at this time. Instructed in use of demand button and dose and frequency. 1608 Dr. Wyatt at bedside. Thereafter, updated to pt's condition and answered questions. In particular, most recent HANDH and pt's every 4 hour CBC, and effectiveness of dilaudid WAITER/WAITRESS CABIN CLASS per pt report. 1616 Text paged Deepa WATERS @ [phone]: Bed 36: Reports itching, especially on chest AND back. Requesting benedryl. Please advise. Thanks. Lynne [id number] 1715 SR from Vascualr surgery at bedside. 173 Blood sample drawn from [facility], labeled and sent to lab via tube system. 1745 Pharmcy notified of need for prn hydrocortisone topical cream 1%. 1805 Vascular surgery resident notified this RN of POC to include b/l LE Duplex. 1814 C/o sweating. Temp 36.3. 3 ice packs placed: b/l axialla and posterior neck. 1821 WAITER/WAITRESS CABIN CLASS pump use as follows: 15ml total, Total given 7.5mg, 10/20 demand bolus' AND pt bolus 1.2mg. 1824 Text paged Deepa WATERS R: Bed 36: Low UOP. Past 2 hours were 10 AND 15ml. Please advise. Thanks. 1835 Text paged Deepa WATERS: Bed 36: We just sent the CBC @ 1730. Do you want lab to stick and then a draw from the [facility]? Please advise. Thanks. 1836 Text paged DIRECTOR OF HOTEL: Bed 36: For blood cultures. 1841 Deepa WATERS responded to above text: POC now includes: next CBC AND BMP @ 1999, 1 set of blood cxs to be drawn by lab and [facility] notified pt had small emesis post ingestion of items from dinner tray. Blood cx from line to also be drawn @ 1999 to conserve waste blood. 185 Urine sample obtained from port for cx, labeled verified and sent to lab via tube system. 1924 Shift report given to on-coming RN. This note was completed by: Lynne Sprague RN Previous Version Radha Brown APRN.ELLIOTT 10/23/2017 7:46 PM Signed MICU PROGRESS NOTE WITH [facility] SERVICE DATE: 10/23/2017 SERVICE TIME: 844 Admission Date: 10/23/2017 Day #: 1 in the MICU. 27 y/o female with hx of anti-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 endograft, on senior living AC with warfarin, plasmapharesis q2 weeks, prednisone 5 mg qD), Diffuse alveolar hemorrhage (on cyclophosphamide), HIT, HFpEF, HTN, CKD, peripheral neuropathy, post-phlebitic syndrome?who was admitted to [facility] MICU on 10/13 for alveolar hemorrhage. She was discharged yesterday after she stabilized and reached her home around 6 PM. She started having severe left sided abdominal pain under her breast radiating up to thigh region after that and went back to OTH ED. She had a CT abdomen done at outside hospital that showed extensive retroperitoneal Hemorrhage on the left with mass effect on the left kidney. Also less extensive blood products present along the surface of the spleen and in the mesentery. She was transferred to MICU as [facility] had no beds. On arrival to MICU patient complained of severe excruciating pain in the left abdomen, 10/10 in intensity, sharp in quality radiating from Left breast to thigh region. Pain is constant per patient and only minimally improved with Dilaudid patient received in OTH. ICU course: HG 4.8, lethargic c/o left flank pain poor relief with IV fentanyl. BP low but acceptable (SBP 100-120) she received 2 units emergency blood, IR consulted, she underwent urgent L RP angiogram, found to have bleeding from multiple foci of the left L3 artery, -> embolized. Incidential finding of large ADHESIVE SPRAYER -CFV fistula, Vascular Surgery consulted -. fistula created in 2013 no need for intervention will arrange for US eval for thrombus. Assessment/Plan Neuro: Peripheral neuropathy left flank pain Plan: -pt drowsy hold Gabapentin -dilaudid WAITER/WAITRESS CABIN CLASS Cardiovascular: HFpEF: LVEF ~ 50% BP low on presentation in setting acute blood loss anemia Has not required pressors Plan: - Amlodipine, hydralazine, currently on hold resume if pt becomes hypertensive -hold torsemide today will add diuresis if she requires further transfusion h/o HTN: currently not an issue Plan: - Amlodipine, hydralazine, torsemide Renal: CKD (baseline Cr ~ 1.1-1.3): - Cr 1.32 upon presentation Plan: - Monitor BUN/Cr -zuniga for accurate I/O consider removing tomorrow as flank resolves able to become more mobile addendum: low UOP likely secondary to low perfusion in setting anemia repeat bmp, consider resuming demadex Hematology: - 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 discharged 10/22 on fondaparinux Plan: - Consult hematology, appreciate recs -hold fondaparinux in setting active bleed --plasmapheresis q 2 weeks and prednisone 80 mg daily; a prednisone taper by 20 mg every four days (with maintenance of prednisone 5 mg daily) Prophylactic: - PPI FULL CODE difficult airway seen and discussed with Dr Wyatt OBJECTIVE: VITAL SIGNS (last 24hrs min/max): Temp Av.4 ?C (97.5 ?F) Min: 36 ?C (96.8 ?F) Max: 36.7 ?C (98.1 ?F) Pulse Av.9 Min: 88 Max: 114 No Data Recorded Cuff BP Min: 99/49 Max: 165/76 Pain Score: 5/10 Vital signs reviewed. NET FLUID BALANCE Intake/Output Summary (Last 24 hours) at 10/23/17 194 Last data filed at 10/23/17 1800 Gross per 24 hour Intake 1803 ml Output 709 ml Net 1094 ml MEDICATIONS Current hospital medications: ondansetron (PF) 4 mg injection (ZOFRAN) 4 mg INTRAVENOUS q 6 H PRN pantoprazole 40 mg injection (PROTONIX) 40 mg INTRAVENOUS DAILY (6 AM) 0.9% NaCl 10 mL 10 mL INTRAVENOUS q 12 H 0.9% NaCl 20 mL 20 mL INTRAVENOUS PRN 0.9% NaCl 10 mL 10 mL INTRAVENOUS q 12 H 0.9% NaCl 20 mL 20 mL INTRAVENOUS PRN HYDROmorphone WAITER/WAITRESS CABIN CLASS 0.5 mg/mL in NaCl 0.9% 100 mL INTRAVENOUS CONTINUOUS hydrocortisone sodium succinate 50 mg injection (Solu-CORTEF) 50 mg INTRAVENOUS ONCE HYDROmorphone 0.2 mg injection (DILAUDID) 0.2 mg INTRAVENOUS ONCE predniSONE (DELTASONE) tab(s) 80 mg 80 mg ORAL DAILY sulfamethoxazole-trimethoprim 800-160 mg 1 tablet (BACTRIM DS,SEPTRA DS) 1 tablet ORAL diphenhydrAMINE 25 mg (BENADRYL) 25 mg ORAL q 6 H PRN hydrocortisone topical cream 1% TOPICAL BID PRN INFUSIONS HYDROmorphone WAITER/WAITRESS CABIN CLASS 0.5 mg/mL Lines, Drains, and Airways Line Central Line Single Lumen Non-tunneled Left Chest -- days Dialysis / Apheresis Double Lumen Admission to Hospital Non- tunneled Left Chest -- days Peripheral 10/23/17 1235 Right Antecubital less than 1 day Drain Indwelling Urinary Catheter 10/23/17 0520 Assessment Zuniga less than 1 day PHYSICAL EXAM HEENT: Oral Mucosa: Moist mucous membranes Feeding Tube: No Eyes: PERRLA Neck: no jvd Cardiovascular: Regular rhythm no murmur Respiratory: bibasilar crackles insp wheeze bilateral Supplemental Oxygen: Yes. O2 NC 2L No Data Recorded Abdomen: obese soft, firm tender along left flank Extremities: Edema- yes Peripheral Pulses- Present all extremities Skin: Abnormalities- Yes pale ecchymosis left flank bilateral UE Neurologic: Awake, oriented, Alert, Follows commands and Moving all extremities NUTRITION: NPO Enteral Feeds: No DATA: Diagnostic tests reviewed for today's visit: Most recent labs and imaging results. Most recent labs Most recent imaging Most recent EKG LABS: CBC, Coags, BMP, Mg, Phos Recent Labs 10/23/17 1730 10/23/17 1257 10/23/17 0630 10/22/17 0412 10/21/17 0356 WBC 21.60* 17.69* 17.22* < > 9.05 11.41* HB 7.5* 8.1* 4.8* < > 7.5* 8.7* HCT 23.0* 24.2* 15.6* < > 24.6* 28.1* PLT 158 130* 187 < > 163 187 INR -- -- -- -- 1.1 1.1 NA -- -- 139 -- 138 138 K -- -- 4.1 -- 3.8 3.8 CHLOR -- -- 97* -- 93* 93* CO2 -- -- 31 -- 34* 30 BUN -- -- 63* -- 63* 63* CREAT -- -- 1.35 -- 1.38* 1.48* GLUC -- -- 158* -- 96 113* CA -- -- 8.0* -- 8.5 8.9 MG -- -- 2.0 -- 2.1 2.1 P -- -- -- -- 2.7 2.8 < > = values in this interval not displayed. CSF AND Dilantin Liver Function, Amylase, AND Lipase Recent Labs 10/23/17 0630 10/22/17 0412 10/21/17 0356 TPROT 4.3* 5.1* 5.9* ALB 3.2* 3.5* 3.9 ALT 9 13 7 AST 14 19 15 ALKPHOS 34* 38 45 TBILI 0.4 0.4 0.4 AMYLASE 47 -- -- LIPASE 48 -- -- Cardiac Enzymes CULTURES: sent PATIENT CHECKLIST ? Are restraints necessary: No ? Deep vein thrombosis prophylaxis administered? No. Contraindicated. ? Stress ulcer prophylaxis? Yes ? Nasogastric tube? No ? Zuniga catheter necessary? Yes ? Is central line essential? Yes ? Plan discussed with assigned RN? Yes ? Family updated within last 24 hours? Yes Critical Care Time 35 minutes. SIGNATURE: Radha Brown APRN.DIRECTOR OF HOTEL PATIENT NAME: Paloma Cannon DATE: October 23, 2017 TIME: 7:43 PM PAGER/CONTACT #: [phone] Shaheen Crandall MD 10/24/2017 10:33 PM Unsigned Ekg Monitor [facility] - Consultation PALOMA CANNON : 1990 AGE: 27 SEX: F ACCTNUM: [id number] HOSP SVC: [facility] LOCATION: [facility] ATTENDING PHYSICIAN: SAPNA WYATT DATE OF CONSULTATION: 10/24/2017 CONSULTING PHYSICIAN: Shaheen Crandall M.D. REASON FOR CONSULTATION: Acute kidney injury on CKD stage 3. 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 She was at the [facility] [place] from October 13 through October 22 for alveolar hemorrhage. She got home around 6 p.m. yesterday. She started having severe left- sided abdominal pain and went back to ER. She had a CT of the abdomen showing extensive retroperitoneal hemorrhage with mass effect on the left kidney and thus she was transferred here. There were no beds at the [facility]. She had an angiogram performed, which showed bleeding from her left L3 artery and this was embolized. She required 200 cc of IV contrast. There is also an incidentally found ADHESIVE SPRAYER disease SV fistula. Her urine output has declined since yesterday. Her urine output was 419 cc in the morning shift yesterday, was 91 cc over the next shift, and 24 cc over the next shift. There is no urine output documented yet for this morning shift. She is mildly hypotensive. Her lowest blood pressure was 99/49, but her blood pressure is 115/62 now. She is awake and alert and knows her history well. She feels swollen right now. She usually takes torsemide 20 to 60 mg per day as an outpatient. She said she would normally takes something like 80 mg on a day like today due to her fluid overload. She did require 4 units of packed red blood cells for hemoglobin of 4.8. Her baseline creatinine is approximately 1.2 to 1.5. Her creatinine went up to 1.86 and then 2.05 this morning with a phosphorus of 7.8 and a potassium of 5.9. She is currently on a Dilaudid WAITER/WAITRESS CABIN CLASS for her pain. She does have multiple bruises on her right arm. 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 OUTPATIENT MEDICATIONS: Prednisone 80 mg daily for 8 days; Arixtra; Norvasc 5 mg b.i.d.; Zofran; Protonix; Zyrtec; Neurontin 400 in morning, 300 in the afternoon, 300 in the evening, Demadex 20 to 60 mg daily as needed for edema; Bactrim 1 tab every Monday, Monday, Monday; Flonase nasal spray, senna. ALLERGIES: Rhubarb, heparin, IV contrast, rituximab. FAMILY HISTORY: No end-stage renal disease. SOCIAL HISTORY: Lives with her . No smoking. REVIEW OF SYSTEMS: A 10-point review of systems negative except that specified in HPI. PHYSICAL EXAMINATION: Temperature 36.6, pulse 108, respiratory rate 15, blood pressure 115/62, satting 95% on 6 L nasal cannula. In general, no acute distress. Head: Normocephalic, atraumatic. ENT: Moist mucous membranes. Eyes: Sclerae anicteric. Neck: Supple. Cardiac: Regular rate and rhythm. Lungs: Clear to auscultation anteriorly bilaterally. She is unable to sit forward. Abdomen: Soft and nontender. Extremities: 2+ lower extremity edema. : She has a Zuniga with dark yellow urine. Neuro: Alert and oriented x3. Skin: She does have bruising on her right arm. LABORATORY DATA: White count 28.0, hemoglobin 7.2, platelets 140. Sodium 130, potassium 5.9, chloride 89, CO2 26, BUN 69, creatinine 2.05, glucose 154, calcium 7.8, magnesium 2.1, phosphorus 7.8, albumin 3.2. IMAGING: Echo from October 13 shows EF of 47%. There is no significant change from her previous echo. She has multiple hypokinetic regions. There is LV diastolic dysfunction. Her last kidney ultrasound was in 2017. This showed normal-sized kidneys with thin parenchymal thickness. Chest x-ray. I reviewed the chest x-ray, it is a poor inspiration. There does seem to be volume overload with some opacities in her lungs. ASSESSMENT AND PLAN: 1. Acute kidney injury on chronic kidney disease stage 3. Her acute kidney injury is due to contrast nephropathy. She did require 200 cc of IV contrast for her embolization. Her treatment of a contrast nephropathy is conservative. Renal function will hopefully improve within the next few days. Typically contrast nephropathy resolves within 48-72 hours. She might take longer to recover though due to the high dose of IV contrast. We will give her 1 dose of IV Lasix 20 mg to improve her volume status. We can consider dosing with higher doses of Lasix, if needed. Check daily labs. 2. Hyperkalemia. I agree with Kayexalate. We will place on a low-potassium diet. 3. Hyperphosphatemia. We will add phosphorus binders, if her phosphorus continues to rise. This is above 5.5 presently. 4. Antiphospholipid antibody syndrome. Thank you for allowing me to participate in the care of your patient. Please contact me with any further questions or concerns. Shaheen Crandall M.D. Nephrology SB:[id number] /[id number] RT Richardson, Tech 10/24/2017 5:27 AM Signed Radiology Service Progress Note PATIENT NAME: Paloma Cannon DATE OF SERVICE: October 24, 2017 TIME: 5:27 AM PATIENT IDENTITY VERIFICATION COMPLETED USING TWO (2) METHODS: Patient confirmed name verbally and ID band matches.. PATIENT GENDER DATA: Female. status: : No status: N/A PATIENT RELEVANT IMPLANT DATA REVIEWED: Not Applicable RADIOLOGY DEPARTMENT: General X-ray: Exam(s) Completed: Abdomen X-Ray Abdomen PERIPHERAL IV DATA: Not applicable SIGNED BY: RT Richardson October 24, 2017 5:27 AM Adriana Reeves MD, MD 10/25/2017 8:20 AM [facility] VASCULAR [place] VASCULAR SURGERY INITIAL CONSULT Service Date: 10/24/2017 Admit Date: 10/23/2017 Service Time: 6:12 AM LOS: 1 Requesting Provider: Sapna Wyatt Vascular Physician: Lydia Mancini MD Subjective Chief Complaint: Lower extremity AV fistula found during IR procedure HPI: Paloma Cannon is a 27 year old White female referred by Sapna Wyatt for an opinion regarding management of LE AVF. Ms. Cannon is a 27-year-old female, known Anti-phospholipid antibody syndrome with diffuse alveolar hemorrhage on Prednisone, Cyclophosphamide, and recently admitted to [facility] main campus 10/13- requiring mechanical ventilation and PLEX), DVT/PE?needing extensive percutaneous thrombectomy of her IVC and lower extremity veins followed by placement of B/L?iliac venous?stents and an?endograft into her IVC, on long-term AC, HIT, CKD III, HTN, HFrEF, peripheral neuropathy, post phlebitic syndrome, who was transferred from [place] for retroperitoneal bleeding on 10/23/17. She is now s/p IR embolization of left L3 lumbar artery. Vascular surgery is consulted for ADHESIVE SPRAYER to CFV fistula found during procedure. Per patient she has had these fistula since her multiple surgeries in [place] in 2013. After the surgery, she experiences lower extremity swelling, however she is able to ambulate. Her most recent DVT can was in 10/14/17 in [facility] and was negative for acute DVT. She has been on fondaparinux during her hospitalization(history of HIT) and prior to that has been mainatained on coumadin. Presently, she has no acute lower extremity symptoms except the right groin access site painful. Summary of Operations in [facility]: 10/02/2013 OPERATION PERFORMED: 1. Urgent control of right groin bleeding. 2. Removal of lysis catheters and sheath from below-knee popliteal vein. 3. Closure of below-knee popliteal incision. 4. Groin closures with VAC dressings. 10/01/2013Operation/Procedure performed: right popliteal cut down, trerotola, trellis, and AngioJet of the femoropopliteal venous system, and placement of Cragg James lysis catheters (left common femoral and right femoropopliteal) 09/30/2013 Operation/Procedure performed: Left iliac vein lysis check, venography, manual suction thrombectomy, dae balloon thrombectomy, left iliac vein stent 09/27/2013Operation/Procedure performed: 1. Right iliocaval venogram 2. Removal of right iliocaval lysis catheter 3. Left groin exposure 4. Left iliac and IVC angiojet 5. Left SFA-saphenous AV fistula 6. Placement of left iliocaval lysis catheter 09/27/2013 Operation/Procedure performed: 1. Right groin exploration 2. Bovine pericardial patch venoplasty of previous femoral vein cannulation site 3. Creation of SFA to first branch of saphenous vein fistula using 4mm non-ringed PTFE 4. Mechanical suction and Dae thrombectomy of complete thrombosis of caval and right sided iliac stents 5. VAC dressing closure 09/27/2013 Operation/Procedure performed: 1. Bilateral common femoral venous access using ultrasound guidance 2. Diagnsotic venography 3. Trellis and mechanical suction thrombectomies of bilateral iliac veins and IVC 4. Placement of Cragg James lysis catheters 65x20 in each iliac vein extending into the IVC 09/25/2013 OPERATION PERFORMED: 1. Venogram of the bilateral common iliac veins and the inferior vena cava. 2. Right common iliac / external iliac vein stenting with Wallstents (14x60 distally, 16x60 proximally) 3. Left common iliac / external iliac vein stenting with Wallstents (14x60 distally, 16x60 proximally) 3. Removal of inferior vena cava filter via left IJ puncture. 4. Intravascular ultrasound of the inferior vena cava. 5. Placement of an Endologix AFX endograft, BA25-80/L16-40, at the inferior vena cava bifurcation. 6. Placement of an inferior vena cava filter via left femoral vein approach. 09/19/2013 OPERATION PERFORMED: 1. Angiovac assisted IVC thrombectomy utilizing venovenous bypass. 2. Cannulation of left internal jugular vein with 17-New Zealander [employer] arterial cannula. 3. Cannulation of right internal jugular vein with 26-New Zealander GORE DrySeal for the Angiovac suction catheter. 4. Placement of left subclavian vein triple-lumen sheath for venous access. 5. Placement of multiple sheaths into bilateral femoral veins as well as an arterial line into the left femoral artery. Location: Bilateral lower extremity Quality: chronic Severity: moderate Duration: several years Timing: following surgery PAST MEDICAL HISTORY Diagnosis Date - (HFpEF) heart failure with preserved ejection fraction (HCC) 02/20/2016 HFpEF w last EF 50-55% On Torsemide, coreg, hydralazine and imdur at home No signs of acute exacerbation on admission Plan: -Continue home medications - Anasarca 11/29/2013 - Anemia 03/10/2015 Chronic microcytic anemia. 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 Thrombosis, and Diffuse Alveolar Hemorrhage. On Warfarin and PLEX (Twice Weekly)? Plan: -Warfarin 5mg qday-holding for planned EGD on 01/11 d/t supra therapeutic INR -Cont. PO Prednisone 10mg MWFS and 5mg TTS -Pantoprazole for GI PPx of Above -Apharesis was supposed to be yesterday, will contact plasmapheresis team on recommendations - Antiphospholipid syndrome (HCC) - Catastrophic Antiphospholipid antibody syndrome 11/09/2013 - Cholelithiasis 01/11/2017 Likely cause of recent pancreatitis. Plan: Per general surgery, no acute surgical intervention at this time. Will await results of EGD. If active gastritis, favor outpatient cholecystectomy. If no active gastritis on EGD, plan for cholecystectomy this admission. - CKD (chronic kidney disease) stage 3, GFR 30-59 ml/min 07/06/2016 Baseline SCr 1.5-1.7 Plan: -renally dose medications -avoid nephrotoxic agents - DVT (deep venous thrombosis) ([facility]) - Elevated CA-125 11/30/2013 244 - Essential hypertension 10/08/2015 Stable on home medications Plan: -continue to monitor on home meds - 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 Bivalirudin to Warfarin bridging - HIT (heparin-induced thrombocytopenia) ([facility]) - Nontoxic multinodular goiter - Obese - Obesity, Class III, BMI >= 40 (morbid obesity) E66.01 10/18/2016 - Peripheral neuropathy 04/14/2016 - Severe protein-calorie malnutrition (HCC) 12/29/2015 PAST SURGICAL HISTORY Procedure Laterality Date - PAST SURGICAL HISTORY OF 2012 IVC thrombectomy - PAST SURGICAL HISTORY OF 2012 b/l iliac v. 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 - PAST SURGICAL HISTORY OF Adenoidectomy - PICC LINE INSERT/CONSULT 11/29/2013 - PICC LINE INSERT/CONSULT 03/10/2015 - PICC LINE INSERT/CONSULT 02/20/2016 FAMILY HISTORY Problem Relation Age of Onset - Breast Cancer Mother spine BRCA neg - Ovarian cyst [OTHER] Mother - ovarian cyst [OTHER] Sister - Thyroid No Family History Social History Substance Use Topics - Smoking status: Never Smoker - Smokeless tobacco: Never Used - Alcohol use No Prescriptions Prior to Admission: predniSONE (DELTASONE) 20 mg tablet Take 4 tablets by mouth once daily for 8 days. Disp: 32 tablet Rfl: 0 COMPOUNDED PRESCRIPTION Outpatient physical therapyPlease call [phone] to make an appointment Disp: 1 Each Rfl: 0 fondaparinux (ARIXTRA) 2.5 mg/0.5 mL syrg Inject 1.5 mL subcutaneously q 24 HR for 10 days. Short term medication to cover while warfarin was on hold Disp: 15 mL Rfl: 0 amLODIPine (NORVASC) 5 mg tablet Take 5 mg by mouth twice daily. Hold for SBP <120 Disp: Rfl: ondansetron (ZOFRAN, HYDROCHLORIDE,) 8 mg tablet Take 8 mg by mouth every 8 hours as needed for Nausea/Vomiting. Disp: Rfl: pantoprazole DR (PROTONIX) 40 mg tablet Take 40 mg by mouth daily at bedtime. Disp: Rfl: cetirizine (ZYRTEC) 10 mg tablet Take 10 mg by mouth twice daily. Disp: Rfl: gabapentin (NEURONTIN) 100 mg capsule Take 400mg in the morning Take 300 mg in the afternoon Take 300mg in the evening Patient may change dose based on pain Disp: 360 capsule Rfl: 2 Unknown at Unknown time torsemide (DEMADEX) 20 mg tablet Take 20 mg by mouth once daily as needed (takes 20-60 mg as needed for chronic edema). Disp: Rfl: Unknown at Unknown time sulfamethoxazole-trimethoprim (BACTRIM DS) 800-160 mg per tablet Take 1 tablet by mouth every Monday,Monday,Monday. Disp: 36 tablet Rfl: 3 Unknown at Unknown time fluticasone (FLONASE) 50 mcg/actuation nasal spray Use 1-2 Sprays in each nostril once daily as needed for Cold/Allergy Symptoms (starting in allergy season). Disp: Rfl: Unknown at Unknown time senna 8.6 mg tab Take 1 tablet by mouth twice daily as needed. Disp: 60 tablet Rfl: 0 Unknown at Unknown time Current hospital medications: furosemide 20 mg injection (LASIX) 20 mg INTRAVENOUS ONCE lactated ringers 500 mL iv bolus 500 mL INTRAVENOUS ONCE ondansetron (PF) 4 mg injection (ZOFRAN) 4 mg INTRAVENOUS q 6 H PRN pantoprazole 40 mg injection (PROTONIX) 40 mg INTRAVENOUS DAILY (6 AM) 0.9% NaCl 10 mL 10 mL INTRAVENOUS q 12 H 0.9% NaCl 20 mL 20 mL INTRAVENOUS PRN 0.9% NaCl 10 mL 10 mL INTRAVENOUS q 12 H 0.9% NaCl 20 mL 20 mL INTRAVENOUS PRN HYDROmorphone WAITER/WAITRESS CABIN CLASS 0.5 mg/mL in NaCl 0.9% 100 mL INTRAVENOUS CONTINUOUS predniSONE (DELTASONE) tab(s) 80 mg 80 mg ORAL DAILY sulfamethoxazole-trimethoprim 800-160 mg 1 tablet (BACTRIM DS,SEPTRA DS) 1 tablet ORAL diphenhydrAMINE 25 mg (BENADRYL) 25 mg ORAL q 6 H PRN hydrocortisone topical cream 1% TOPICAL BID PRN torsemide 60 mg tab(s) (DEMADEX) 60 mg ORAL DAILY PRN ALLERGIES Allergen Reactions - Rhubarb Rash, Hives - Heparin Other: See Comments Per patient history of HIT - was on angiomax however then took l fondaparinux for bridging to coumadin. - Iv Contrast [Iodine] Other: See Comments shuts kidneys down per patient - Rituximab Other: See Comments Elevated cardiac enzymes COMPLETE REVIEW OF SYSTEMS CONSTITUTIONAL: No weight loss, malaise or fevers. HEENT: Negative for frequent or significant headaches, No changes in hearing or vision, no nose bleeds or other nasal problems. RESPIRATORY: Negative for cough, wheezing, or shortness of breath CARDIOVASCULAR: Negative for chest pain, leg swelling or palpitations GI: Negative for abdominal discomfort, blood in stools or black stools or change in bowel habits. : No history of dysuria, frequency, or incontinence and No difficulty urination, nocturia >1 times per night or hematuria. MUSCULOSKELETAL: Negative for joint pain or swelling, back pain or muscle pain. ENDOCRINE: Negative for cold or heat intolerance, polyuria, polydipsia and goiter HEMATOLOGIC/LYMPHATIC: Negative for prolonged bleeding, bruising easily or swollen nodes. NEUROLOGIC: No history or headaches, syncope, paralysis, seizures or tremors. INTEGUMENTARY: Negative for lesions, rash, and itching. Objective PHYSICAL EXAM Physical Exam Performed Patient Vitals for the past 24 hrs: BP Temp Temp src Pulse Resp SpO2 Height Weight 10/24/17 0300 90/55 - - 96 7 93 % - - 10/24/17 0200 (!) 93/46 - - 90 6 91 % - - 10/24/17 0100 110/55 - - 92 16 96 % - - 10/24/17 0000 114/68 - - 104 19 97 % - - 10/23/17 2300 112/80 - - 97 8 93 % - - 10/23/17 2200 112/65 - - 93 9 95 % - - 04/16/18 2100 124/72 - - 90 11 95 % - - 10/23/17 2000 110/62 36.3 ?C (97.3 ?F) Oral 98 9 91 % - - 10/23/17 1930 (!) 99/49 - - 110 11 (!) 84 % - - 10/23/17 1900 (!) 107/42 - - 102 12 92 % - - 10/23/17 1830 115/61 - - 106 9 93 % - - 10/23/17 1800 112/73 - - 105 (!) 5 94 % - - 10/23/17 1730 131/83 - - 103 10 94 % - - 10/23/17 1700 129/115 - - 101 18 98 % - - 10/23/17 1630 151/78 - - 97 9 98 % - - 10/23/17 1600 150/75 36.4 ?C (97.5 ?F) Oral 104 10 97 % - - 10/23/17 1530 131/94 - - 104 16 97 % - - 10/23/17 1500 114/99 - - 98 10 95 % - - 10/23/17 1445 112/73 - - 100 9 89 % - - 10/23/17 1430 122/66 - - 98 9 91 % - - 10/23/17 1415 145/85 - - 95 11 95 % - - 10/23/17 1400 124/78 - - 93 14 93 % - - 10/23/17 1345 141/87 - - 99 15 92 % - - 10/23/17 1330 141/87 - - 88 13 96 % - - 10/23/17 1324 - - - - 14 97 % - - 10/23/17 1315 165/76 - - 95 17 94 % - - 10/23/17 1313 - - - 100 16 93 % - - 10/23/17 1300 161/74 - - 99 13 93 % - - 10/23/17 1245 158/80 - - 97 15 95 % - - 10/23/17 1230 135/74 - - 98 20 95 % - - 10/23/17 1215 - - - 114 24 (!) 86 % - - 10/23/17 1212 156/84 36.5 ?C (97.7 ?F) Axillary 102 - - - - 10/23/17 1132 147/76 36.4 ?C (97.5 ?F) Axillary 95 - - - - 10/23/17 1112 144/88 36.5 ?C (97.7 ?F) Axillary 94 - - - - 10/23/17 1047 135/84 36.5 ?C (97.7 ?F) Axillary 98 - - - - 10/23/17 1032 144/90 36.7 ?C (98.1 ?F) Axillary 98 - - - - 10/23/17 1000 131/69 - - 106 17 94 % - - 10/23/17 0949 138/78 36.4 ?C (97.5 ?F) Axillary 107 - - - - 10/23/17 0930 113/67 - - 104 14 100 % - - 10/23/17 0927 119/74 36 ?C (96.8 ?F) Axillary 99 13 - - - 10/23/17 0913 118/73 36.2 ?C (97.2 ?F) Axillary 102 13 - - - 10/23/17 0900 111/70 - - 102 8 100 % - - 10/23/17 0852 134/68 36 ?C (96.8 ?F) Axillary 102 12 - - - 10/23/17 0832 125/68 36.5 ?C (97.7 ?F) Axillary 100 10 - - - 10/23/17 0817 119/72 36.4 ?C (97.5 ?F) Oral 106 6 - - - 10/23/17 0800 110/60 36.4 ?C (97.5 ?F) Oral 106 18 99 % - - 10/23/17 0730 118/57 - - 100 15 97 % - - 10/23/17 0700 117/69 - - 101 13 98 % - - 10/23/17 0645 122/70 - - 99 16 96 % - - 10/23/17 0630 115/70 - - 99 13 97 % - - 10/23/17 0615 125/69 - - 100 14 99 % - - 10/23/17 0600 126/76 - - 100 17 99 % 160 cm (5' 3) 103.2 kg (227 lb 8.2 oz) Intake/Output Summary (Last 24 hours) at 10/24/17 0557 Last data filed at 10/24/17 0500 Gross per 24 hour Intake 2423 ml Output 674 ml Net 1749 ml CONSTITUTIONAL: Obese and No acute distress NEUROLOGIC/PSYCHIATRIC: Oriented to time, place AND person and Alert HEENT: Fair dentition and Strabismus LUNGS: Respiratory effort: normal HEART: Regular rate AND rhythm ABDOMEN: Soft and Non-tender INTEGUMENTARY: Wound - No SURGICAL SITES: Groin - right; Clean, dry and intact MUSCULOSKELETAL: No deformities Pulses/Signals: Carotid Brachial Radial Ulnar Femoral Popliteal Dorsalis Pedis Posterior Tibial Peroneal Right Palpable +2 Palpable +2 Palpable +2 Palpable +2 Right groin access site c/d/i Biphasic Signal Biphasic Signal Biphasic Signal Left Palpable +2 Palpable +2 Palpable +2 Palpable +2 Palpable +1 Biphasic Signal Biphasic Signal Biphasic Signal Does the patient have critical limb ischemia, rest pain, tissue loss or gangrene?: No DATA: Laboratory: Recent Labs 10/24/17 0405 10/24/17 0020 10/23/172029 WBC 28.42* 26.37* 23.91* HB 6.7* 6.9* 7.5* HCT 20.0* 20.7* 22.9* PLT 151 151 168 Recent Labs 10/24/17 0405 10/24/17 0030 10/23/17202910/23/17 0630 10/22/17 0412 NA -- 130* 132 139 138 K -- 5.9* 6.2* 4.1 3.8 BUN -- 69* 66* 63* 63* CREAT -- 2.05* 1.86* 1.35 1.38* GLUC -- 154* 172* 158* 96 MG 2.1 -- -- 2.0 2.1 Recent Labs 10/22/17 0412 INR 1.1 Radiology: I have personally reviewed the following images/data: IR Angiography Angiograms of the left common, external iliac and left common femoral artery demonstrates rapid opacification of the right common femoral vein, distal external iliac vein stent appears patent. ?Also seen are multiple body wall venous collaterals that opacify with arterial injection. ?Magnified angiogram performed in the left inguinal region demonstrates arteriovenous fistula connecting the distal aspect of the common femoral artery medially with the common femoral vein. ?This fistula overlies approximately the region of the greater trochanter. ? Given its location across the joint, it was determined this fistula was not amenable to endovascular stenting. Angiograms of the left renal artery, left L1, L2 angiograms were unremarkable. ?DSA of the left L3 lumbar artery demonstrates multiple foci of extravasation, including a large area of pooling in the left lower quadrant from one of the inferior second order branches of the L3 lumbar artery. ?L4 angiogram was unremarkable. INTERVENTION: The Cobra catheter was then positioned at the ostium of the left L3 lumbar artery. ?2.4 New Zealander microcatheter system was then used to select a second order branch of the L3 artery. ?Gelfoam embolization of this branch was performed until stasis was achieved. ?Next, multiple 2 mm to 3 mm diameter 018 Concerto coils were then placed. ?Repeat DSA from the proximal lumbar artery demonstrated no further extravasation. The patient tolerated the procedure well. ?There were no significant complications and no other complications during the procedure. Impression/Recommendations Impression: Ms. 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 She is now s/p IR embolization of left L3 lumbar artery. Vascular surgery is consulted for lower extremity fistula found during procedure. - AVF present in BLE since 2013, it was surgically created, no interventions warranted at this time. - No signs of high output cardiac failure, her low EF possibly related to rituximab cardiotoxic effects(was on rituxan for APLS) Plan: - No acute surgical intervention, AV fistula seen during IR corresponds to surgically created AV fistula(2013). Will review images with staff - Obtain bilateral venous duplex to evaluate patency of venous system in bilateral lower extremity - Consider limb elevation and HEATHER bandage to relieve swelling - OOB and ambulate as able, PT/OT - Resume anticoagulation when able from RP bleeding standpoint - Plans will be discussed with staff Addendum: Venous study shows patent venous system. BLE AVF created to improve flow in common iliac veins and IVC to prevent in-stent thrombosis. Do not ligate/intervene. Continue supportive care No other vascular interventions needed Resume anticoagulation when appropriate Please call with questions and concerns No problems updated. SIGNATURE: Adriana Reeves MD PATIENT NAME: Paloma Cannon DATE: October 24, 2017 TIME: 5:57 AM PAGER/CONTACT #: ETX#[phone] Previous Version Sapna Wyatt MD 10/24/2017 12:[address] FRED STONE, SR. HOSPITAL STAFF PHYSICIAN NOTE OF PERSONAL INVOLVEMENT IN CARE I have seen and examined the patient, reviewed the progress note completed by the nurse practitioner, and agree with the history, exam, and assessment/plan, with the following exceptions/additions. If there are fernandes items that I feel deserve particular emphasis, I have outlined them below. Please refer to the nurse practitioner note for full details, including a summary of our mutually agreed upon findings, assessment/plan, and recommendations. IMPRESSION: 27 y.o. 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 ? PLAN: ? Acute hypoxic resp failure - check CXR, currently on 6L O2 NC, titrate O2 down as able. HFpEF - holding home diuretics given acute bleed. Acute blood loss anemia due to retroperitoneal bleeding from L3 lumbar artery - s/p embolization by IR 10/23, transfuse PRN, will need platelets + FFP if requires massive transfusion. Has serosanguinous drainage from femoral site, feel this is due to her edema, feel this is less likely urine as she currently has CAPRICE (see below). HIT - follow labs, Heme following. APS s/p DAH - holding AC (see above). Hematology following. Continue Prednisone taper + Bactrim PPx. Will need routine plasmapheresis 10/30 and if requires hospitalization until then will need transfer to [facility] Main [place]. HTN - hold home meds for now. CAPRICE on CKD 3 - baseline Cr 1.4, likely due to contrast from procedure yesterday which was required due to life-threatening hemorrhage. Continue diuresis, Nephrology consult. Hyperkalemia - due to above, medical tx. Neuropathy - resume Gabapentin at low dose adjusting for renal function (home med). GERD - PPI (home med). DVT PPx - SCD's, holding meds due to acute hemorrhage. Patient/Family Updated: d/w pt at bedside. This patient has a high probability of sudden, clinically significant deterioration, which requires the highest level of physician preparedness to intervene urgently. I managed/supervised life or organ supporting interventions that required frequent physician assessment. I have devoted my full attention to the direct care of this patient for the amount of time indicated below. I have included time that I spent with family or surrogates only if the patient was incapable of providing the necessary information or participating in medical decision making. This critical care time is exclusive of any time devoted to teaching or for separately billable procedures. Critical Care Documentation: The patient has the following organ/system impairment(s): Acute blood loss, Acute kidney injury, Complex life-threatening medical problem(s), Respiratory failure (with Hypoxemia) and APS, HIT Time spent providing critical care services: 30 minutes. SIGNATURE: Sapna Wyatt MD [facility] PAGER:[phone] DATE of SERVICE: 10/24/17 TIME of SERVICE: 12:36 PM Saundra Choe, RN, RN 10/24/2017 8:08 AM Addendum Nursing Progress Note Patient Name: Paloma Cannon Patient Location: [place] [address] [id number] Daily Note: 1930 Report received Complete assessment to follow 1999 Complete assessment done. Pt is awake, alert, oriented x3 Dilaudid WAITER/WAITRESS CABIN CLASS controlling pt's pain at this time NSR to BST on social service technician. Speeh clear VSS Pt is on O2 at 6 L NC SAO2 mid to upper 90's Respiratory rate will decrease to 6 when the pt is sleeping. Minimal yellow urine noted. Moderate amount of serous drainage from the right groin Site from IR. Taking po fluids without difficulty. 2000 Blood cultures drawn by the guest history clerk as ordered 2029 CBC., BMP, Blood cultures and Thrombograph blood work drawn from the Samantha catheter and sent to lab as ordered. 2234 Ese Arias from labs called regarding the Thrombograph panel. Stated that this is a mail out to [facility] and lab would need to be redrawn in the am . Dr Mallory notified. Lab also informed this RN that they were just running the BMP and CBC that was drawn at 2029 Dr Mallory is also notified of this. 2305 Lab result of potassium of 6.2 reported by Freddy Gaitan Reported to Dr Mallory at this time. 2332 Pt complaining of nausea. Pt medicated with Zofran 4 mg IV as ordered Will evaluate for effectiveness. 0005 Complete assessment done. No further nausea noted 0017 Pt medicated with 60mg Torsemide which is the dose the pt takes at home. 0020 Pt medicated with Benadryl 25mg po for itchyness. 0030 CBC drawn at this time from the Samantha catheter as ordered 0100 BMP drawn from the Samantha catheter as ordered. 0333 Lasix 20mg IV given at this time as ordered. '0400 Pt remains edematous and anuric at this time. No change in assessment noted Rt groin puncture site from IR with colostomy bag to collect the serous drainage. 0410 CBCPhos and MAG drawn from the Samantha catheter and sent to lab as ordered. 0430 One unit of PRBCs started at this time as ordered. 0515 KUB completed as ordered Drainage from the Rt groin puncture site sent to U/A and pH . 0600 500ml LR fluid bolus started at this time as ordered. 0730 Report given to relief RN . Updated on assessment and events of the shift mechanic. 0735 PRBC's completed at this time. No adverse reaction noted. This note was completed by: Saundra Choe RN Previous Version Kandis Flores RT, Tech 10/24/2017 9:24 AM Signed Radiology Service Progress Note PATIENT NAME: Paloma Cannon DATE OF SERVICE: October 24, 2017 TIME: 9:24 AM PATIENT IDENTITY VERIFICATION COMPLETED USING TWO (2) METHODS: Patient confirmed name verbally and ID band matches.. PATIENT GENDER DATA: Female. status: : No status: NO. PATIENT RELEVANT IMPLANT DATA REVIEWED: Not Applicable RADIOLOGY DEPARTMENT: General X-ray: Exam(s) Completed: Chest X-Ray PERIPHERAL IV DATA: Not applicable SIGNED BY: RT Mony October 24, 2017 9:24 AM Shaheen Crandall MD 10/24/2017 10:19 AM Signed Dictation number: [id number] CAPRICE on CKD 3 CAPRICE likely from contrast nephropathy. Treatment is conservative Her renal function will hopefully improve within a few days Will give 1 dose IV Lasix 20mg to improve volume status. 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 Illness or Injury based on: Insufficient Energy Intake: Less than 75% energy intake compared to estimated needs for greater than or equal to 1 month Fluid Accumulation due to Malnutrition Severe NUTRITION CARE PLAN: Problem, Etiology and Signs/Symptoms: Suboptimal oral intake related to poor appetite as evidenced by poor po intake with Intervention: Diet - Regular Provide Ensure Clear and Ensure High protein at meals Provide Cranberry juice at meals Encourage good po intakes Monitor and Evaluation: Goal: Meet >75% of estimated needs Monitor fluid/electrolyte balance Monitor labs, I/Os, vital signs, weight Discharge Nutrition Recommendations: To be determined Per HPI: 27 y/o female with hx of anti-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 endograft, on intermediate card tender AC with warfarin, plasmapharesis q2 weeks, prednisone 5 mg qD), Diffuse alveolar hemorrhage (on cyclophosphamide), HIT, HFpEF, HTN, CKD, peripheral neuropathy, post-phlebitic syndrome?who was admitted to [facility] MICU on 10/13?for alveolar hemorrhage. She was discharged yesterday after she stabilized and reached her home around 6 PM. She started having severe left sided abdominal pain under her breast radiating up to thigh region after that and went back to OTH ED. She had a CT abdomen done at outside hospital that showed extensive retroperitoneal Hemorrhage on the left with mass effect on the left kidney. Also less extensive blood products present along the surface of the spleen and in the mesentery. She was transferred to MICU as main campus had no beds. On arrival to MICU patient complained of severe excruciating pain in the left abdomen, 10/10 in intensity, sharp in quality radiating from Left breast to thigh region. Pain is constant per patient and only minimally improved with Dilaudid patient received in OTH. ? ICU course: HG 4.8, lethargic c/o left flank pain poor relief with IV fentanyl. BP low but acceptable (SBP 100-120) she received 2 units emergency blood, IR consulted, she underwent urgent L RP angiogram, found to have bleeding from multiple foci of the left L3 artery, -> embolized. Incidential finding of large ADHESIVE SPRAYER -CFV fistula, Vascular Surgery consulted -. fistula created in 2013 no need for intervention will arrange for US eval for thrombus. Present Diet Order: Regular Enteral Access: No Nutritional Intake Prior to Admission: Pt states poor appetite while on chemo and she has not been eaiting well prior to admit Unable to determine wt loss due to fluid - edema and pt states she doesn't know a dry wt GI symptoms: anorexia Abdominal Exam: abdomen is distended and bowel sounds are hyperactive Is the patient having any pain that is interfering with oral/enteral intake? No ANTHROPOMETRICS Height: 160 cm (5' 3) Admission Weight: 103.2 kg (227 lb 8.2 oz) Current Weight: 103.2 kg (227 lb 8.2 oz) Body mass index is 40.3 kg/(m2). class 3 obesity Weight has increased and decreased with change in fluid status Pt states she may have gained with + fluid Prior wt 216# Last Wt 10/23/17 : 103.2 kg (227 lb 8.2 oz) 10/22/17 : 105 kg (231 lb 7.7 oz) 10/05/17 : 101.4 kg (223 lb 8 oz) 09/27/17 : 96.6 kg (213 lb) 09/18/17 : 97.4 kg (214 lb 11.2 oz) 09/12/17 : 96.6 kg (213 lb) 09/11/17 : 92.7 kg (204 lb 4.8 oz) 09/06/17 : 98.5 kg (217 lb 2.5 oz) 08/21/17 : 92.7 kg (204 lb 6.4 oz) 07/11/17 : 106.6 kg (235 lb) 06/27/17 : 106.6 kg (235 lb) 06/20/17 : 110 kg (242 lb 8.1 oz) 06/08/17 : 110.3 kg (243 lb 2.7 oz) 05/08/17 : 111.5 kg (245 lb 12.8 oz) 04/29/17 : 114.5 kg (252 lb 6.8 oz) 03/30/17 : 114.8 kg (253 lb) 03/24/17 : 118.5 kg (261 lb 3.9 oz) 02/21/17 : 105.2 kg (232 lb) 02/10/17 : 105.3 kg (232 lb 2.3 oz) 01/18/17 : 127.5 kg (281 lb 1.4 oz) Dosing Weight: 64 kg Resting Metabolic Rate: 1732 Estimated kilocalorie needs: 1600 - 1920 kilocalories determined by 25-30 kcal/kg Estimated protein needs: 96-115 grams determined by 1.5-1.8g/kg Dosing weight Estimated fluid needs: 1600 - 1900 milliliters based on 1 mL per kcal NUTRITION FOCUSED PHYSICAL EXAM: Unable to perform exam due to patient whole body edema, anasarca, will re-attempt during reassessment. Edema 3+ generalized and 3+ bilateral lower extremities Temperature Max in 24 hours: Temp (24hrs), Av.4 ?C (97.5 ?F), Min:36.3 ?C (97.3 ?F), Max:36.6 ?C (97.9 ?F) BP 131/71 Pulse 100 Temp 36.4 ?C (97.5 ?F) (Oral) Resp 13 Ht 160 cm (5' 3) Wt 103.2 kg (227 lb 8.2 oz) SpO2 95% BMI 40.3 kg/m2 Recent Labs 10/24/17 1200 10/24/17 0405 10/24/17 0030 10/23/17 0630 GLUC -- -- -- 154* < > 158* BUN -- -- -- 69* < > 63* CREAT -- -- -- 2.05* < > 1.35 NA -- -- -- 130* < > 139 K -- -- -- 5.9* < > 4.1 CHLOR -- -- -- 89* < > 97* CO2 -- -- -- 26 < > 31 ALB -- -- -- -- -- 3.2* HB 6.8* < > 6.7* -- < > 4.8* HCT 20.1* < > 20.0* -- < > 15.6* WBC 26.49* < > 28.42* -- < > 17.22* P -- -- 7.8* -- -- -- MG -- -- 2.1 -- -- 2.0 < > = values in this interval not displayed. Potential Signs of Inflammation: leukocytosis, hyperglycemia, hypoalbuminemia and imaging studies ALLERGIES Allergen Reactions - Rhubarb Rash, Hives - Heparin Other: See Comments Per patient history of HIT - was on angiomax however then took l fondaparinux for bridging to coumadin. - Iv Contrast [Iodine] Other: See Comments shuts kidneys down per patient - Rituximab Other: See Comments Elevated cardiac enzymes Current Facility-Administered Medications: diphenhydrAMINE 50 mg (BENADRYL) 50 mg ORAL q 6 H PRN gabapentin 100 mg cap(s) (NEURONTIN) 100 mg ORAL TID ondansetron (PF) 4 mg injection (ZOFRAN) 4 mg INTRAVENOUS q 6 H PRN 0.9% NaCl 10 mL 10 mL INTRAVENOUS q 12 H 0.9% NaCl 20 mL 20 mL INTRAVENOUS PRN 0.9% NaCl 10 mL 10 mL INTRAVENOUS q 12 H 0.9% NaCl 20 mL 20 mL INTRAVENOUS PRN HYDROmorphone WAITER/WAITRESS CABIN CLASS 0.5 mg/mL in NaCl 0.9% 100 mL INTRAVENOUS CONTINUOUS predniSONE (DELTASONE) tab(s) 80 mg 80 mg ORAL DAILY sulfamethoxazole-trimethoprim 800-160 mg 1 tablet (BACTRIM DS,SEPTRA DS) 1 tablet ORAL hydrocortisone topical cream 1% TOPICAL BID PRN Intake/Output 10/22/17 0700 - 10/23/17 0659 10/23/17 0700 - 10/24/17 0659 10/24/17 07 - 10/25/17 0659 Intake (ml) 0 3152 881 Output (ml) 220 634 145 Net (ml) -220 9748 736 MNT Billing Type: Initial Assess/15 min 5 units SIGNATURE: Micaela Rice RD, LD PATIENT NAME: Paloma Cannon DATE: October 24, 2017 TIME: 12:28 PM PAGER: For further assistance and weekends please page the Group Pager [phone] Chaplain Nova 10/24/2017 3:14 PM Signed SPIRITUAL CARE PROGRESS NOTE SERVICE DATE: 10/24/2017 SERVICE TIME: 1500 Financial Assistance Advisor provided spiritual support through reflective listening and reinforcing ways pt uses to comfort and calm her self during anxiety attacks. Financial Assistance Advisor shared Psalm 23 and prayed with pt, who became tearful and expressed she had been comforted by the Psalm and the prayer. Pt expressed interest in using lavender for comfort and elementary math tutor offered to bring some lavender scented inhalers, lotions, etc., to the pt which she readily accepted. Financial Assistance Advisor will bring this to pt later this afternoon and continue support. To contact the Spiritual Care Department: Please call [phone]. SIGNATURE: Chaplain Nova PATIENT NAME: Paloma Cannon DATE: October 24, 2017 TIME: 3:10 PM PAGER/CONTACT #: [phone] Dary Mueller, RN, RN 10/24/2017 7:47 PM Addendum Nursing Progress Note Patient Name: Paloma Cannon Patient [facility] [place] [address] Daily Note: 0730 report received,pt remains on 6 LNC.Pt a/ox3 gonzales weakly.generalized edema present at the bedside heather wraps applied to both lower ext. 0800 labs sent as ordered.U/o remains low. 0830 at the bedside to examine the pt update given.Pt given K cocktail for K+ of 5.9 1200 CBC drawn. 1415 1 upc hung pt given 50 mgs Benadryl po priro to blood transfusion for itching. pt saturation in the 70's when sleeping pt placed on 55% venti-mask. 1600 1 upc completed. 1700 Repeat Potassium 6 pt given 80mgs Lasix and kxylte per order.Pt placed on 6 lnc for dinner. 1730 pt up to the bedside commode with assist of 2 ashley well.pt attempting to have a BM unsuccessful.GENERATION MECHANIC HELPER informed and orders placed. 1745 pt up in the ch from [facility]. 1800 pt remains up in the ch. in to see the pt update given.Vss.U/o remains minimal 1930 report to relief nurse. This note was completed by: Dary Mueller RN Previous Version Radha Brown APRN.DIRECTOR OF HOTEL 10/24/2017 7:50 PM Signed MICU PROGRESS NOTE WITH COORD CARE SERVICE DATE: 10/24/2017 SERVICE TIME: 929 Admission Date: 10/23/2017 Day #: 2 in the MICU. 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 She was discharged yesterday after she stabilized and reached her home around 6 PM. She started having severe left sided abdominal pain under her breast radiating up to thigh region after that and went back to OTH ED. She had a CT abdomen done at outside hospital that showed extensive retroperitoneal Hemorrhage on the left with mass effect on the left kidney. Also less extensive blood products present along the surface of the spleen and in the mesentery. She was transferred to MICU as [facility] had no beds. On arrival to MICU patient complained of severe excruciating pain in the left abdomen, 10/10 in intensity, sharp in quality radiating from Left breast to thigh region. Pain is constant per patient and only minimally improved with Dilaudid patient received in OTH. ICU course: HG 4.8, lethargic c/o left flank pain poor relief with IV fentanyl. BP low but acceptable (SBP 100-120) she received 2 units emergency blood, IR consulted, she underwent urgent L RP angiogram, found to have bleeding from multiple foci of the left L3 artery, -> embolized. Incidential finding of large ADHESIVE SPRAYER -CFV fistula, Vascular Surgery consulted -. fistula created in 2013 no need for intervention will arrange for US eval for thrombus. 4/ HG drifting down, (expected). required 2 units PRBC today. oliguric CAPRICE, UOP 0-5 cc/hr overnight, with rising CR, potassium 6 Nephrology consulted (contrast nephropathy), conservative management, may require HD, holding today. IV hyperkalemia protocol, kayexalate repet bmp 9PM Family requests transfer to [facility] . AC on hold in setting acute bleed Assessment/Plan retroperitoneal bleed /. HG 4.8, required 4 units PRBC underwent IR embolization of left lumbar artery serous output from right groin pouch placed HG continues to drift down (expected), required additional 2 units post procedure Neuro: Peripheral neuropathy left flank pain Plan: -add Gabapentin, reduced dose given renal failure -dilaudid WAITER/WAITRESS CABIN CLASS -0.2mg q 20 minutes no basal Cardiovascular: HFpEF: LVEF ~ 50% BP low on presentation in setting acute blood loss anemia Has not required pressors improved, holding antihypertensives Plan: - Amlodipine, hydralazine, currently on hold resume if pt becomes hypertensive Renal: CKD (baseline Cr ~ 1.1-1.3): Cr 1.32 upon presentation worsening renal function contrast, hyperkalemia (6) -Nephrology updated oliguric UOP 5-10cc/h poor response to low dose lasix Plan: - Monitor BUN/Cr -zuniga for accurate I/O in setting oliguric CAPRICE -Nephrology consulted -kayexalate, IV hyperkalemia protocol repeat bmp, 9PM Hematology: - 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 discharged 10/22 on fondaparinux currently on hold Plan: Consulted hematology, appreciate recs --plasmapheresis q 2 weeks and prednisone 80 mg daily; a prednisone taper by 20 mg every four days (with maintenance of prednisone 5 mg daily) plasmapheresis due Monday Prophylactic: - PPI ADHESIVE SPRAYER -CFV fistula, Vascular Surgery consulted -. fistula created in 2013 no need for intervention FULL CODE difficult airway seen and discussed with Dr Wyatt on AM and late afternoon rounds transfer orders in for transfer to [facility] Dr Womack contacting MICU staff to discuss transfer OBJECTIVE: VITAL SIGNS (last 24hrs min/max): Temp Av.5 ?C (97.7 ?F) Min: 36.3 ?C (97.3 ?F) Max: 37 ?C (98.6 ?F) Pulse Av.2 Min: 88 Max: 108 No Data Recorded Cuff BP Min: 90/55 Max: 156/72 Pain Score: 0/10 Vital signs reviewed. Relevant comments- more alert NET FLUID BALANCE Intake/Output Summary (Last 24 hours) at 10/24/17 1947 Last data filed at 10/24/17 1900 Gross per 24 hour Intake 3131 ml Output 435 ml Net 2696 ml MEDICATIONS Current hospital medications: diphenhydrAMINE 50 mg (BENADRYL) 50 mg ORAL q 6 H PRN gabapentin 100 mg cap(s) (NEURONTIN) 100 mg ORAL TID [START ON 10/25/2017] pantoprazole DR 40 mg tab(s) (PROTONIX) 40 mg ORAL DAILY (6 AM) insulin regular human 10 Units injection (short acting) (NovoLIN R,HumuLIN R) 10 Units INTRAVENOUS ONCE dextrose 50% in water 50 mL syringe 50 mL INTRAVENOUS ONCE senna 17.2 mg tab(s) (SENOKOT) 17.2 mg ORAL BID docusate sodium 100 mg cap(s) (COLACE) 100 mg ORAL BID ondansetron (PF) 4 mg injection (ZOFRAN) 4 mg INTRAVENOUS q 6 H PRN 0.9% NaCl 10 mL 10 mL INTRAVENOUS q 12 H 0.9% NaCl 20 mL 20 mL INTRAVENOUS PRN 0.9% NaCl 10 mL 10 mL INTRAVENOUS q 12 H 0.9% NaCl 20 mL 20 mL INTRAVENOUS PRN HYDROmorphone WAITER/WAITRESS CABIN CLASS 0.5 mg/mL in NaCl 0.9% 100 mL INTRAVENOUS CONTINUOUS predniSONE (DELTASONE) tab(s) 80 mg 80 mg ORAL DAILY sulfamethoxazole-trimethoprim 800-160 mg 1 tablet (BACTRIM DS,SEPTRA DS) 1 tablet ORAL MO- hydrocortisone topical cream 1% TOPICAL BID PRN INFUSIONS HYDROmorphone WAITER/WAITRESS CABIN CLASS 0.5 mg/mL Lines, Drains, and Airways Line Central Line Single Lumen Non-tunneled Left Chest -- days Dialysis / Apheresis Double Lumen Admission to Hospital Non- tunneled Left Chest -- days Peripheral 10/23/17 1235 Right Antecubital 1 day Drain Indwelling Urinary Catheter 10/23/17 0520 Assessment Zuniga 1 day Drain/Tube 10/24/17 0200 Assessment Right Groin Drain #1 less than 1 day PHYSICAL EXAM HEENT: Oral Mucosa: Moist mucous membranes Feeding Tube: No Eyes: PERRLA Neck: no JVE Cardiovascular: regular s!S2 no murmur tele SR-ST Relevant Hemodynamic Data: acceptable BP Respiratory: inspiratory wheeze RLL few crackles otherwise clear + moist cough O2 NC Abdomen: Soft, Nontender and Positive bowel sounds Extremities: Edema- Yes Peripheral Pulses- Present all extremities Skin: Abnormalities- Yes ecchymosis Neurologic: Awake, oriented, Alert, Follows commands and Moving all extremities NUTRITION: regular diet Enteral Feeds: No DATA: Diagnostic tests reviewed for today's visit: Most recent labs and imaging results. Most recent labs Most recent imaging Most recent EKG LABS: CBC, Coags, BMP, Mg, Phos Recent Labs 10/24/17 1355 10/24/17 1200 10/24/17 0840 10/24/17 0405 10/24/17 0030 10/23/17 2030 10/23/17 0630 10/22/17 0412 WBC -- 26.49* 28.08* 28.42* -- < > 23.91* < > 17.22* < > 9.05 HB -- 6.8* 7.2* 6.7* -- < > 7.5* < > 4.8* < > 7.5* HCT -- 20.1* 21.5* 20.0* -- < > 22.9* < > 15.6* < > 24.6* PLT -- 122* 140* 151 -- < > 168 < > 187 < > 163 INR -- -- -- -- -- -- -- -- -- -- 1.1 NA 129* -- -- -- 130* -- 132 -- 139 -- 138 K 6.0* -- -- -- 5.9* -- 6.2* -- 4.1 -- 3.8 CHLOR 89* -- -- -- 89* -- 90* -- 97* -- 93* CO2 27 -- -- -- 26 -- 26 -- 31 -- 34* BUN 73* -- -- -- 69* -- 66* -- 63* -- 63* CREAT 2.55* -- -- -- 2.05* -- 1.86* -- 1.35 -- 1.38* GLUC 109* -- -- -- 154* -- 172* -- 158* -- 96 CA 7.9* -- -- -- 7.8* -- 7.8* -- 8.0* -- 8.5 MG -- -- -- 2.1 -- -- -- -- 2.0 -- 2.1 P -- -- -- 7.8* -- -- -- -- -- -- 2.7 < > = values in this interval not displayed. CSF AND Dilantin Liver Function, Amylase, AND Lipase Recent Labs 10/23/17 0630 10/22/17 0412 TPROT 4.3* 5.1* ALB 3.2* 3.5* ALT 9 13 AST 14 19 ALKPHOS 34* 38 TBILI 0.4 0.4 AMYLASE 47 -- LIPASE 48 -- Cardiac Enzymes CULTURES: reviewed PATIENT CHECKLIST ? Are restraints necessary: No ? Deep vein thrombosis prophylaxis administered? No. Contraindicated. ? Stress ulcer prophylaxis? yes ? Nasogastric tube? No ? Zuniga catheter necessary? Yes ? Is central line essential? Yes ? Plan discussed with assigned RN? Yes ? Family updated within last 24 hours? Yes Critical Care Time 35 minutes. SIGNATURE: Radha Brown APRN.DIRECTOR OF HOTEL PATIENT NAME: Paloma Cannon DATE: October 24, 2017 TIME: 7:47 PM PAGER/CONTACT #: Angella Barreto, RN, RN 10/25/2017 8:08 AM Addendum Nursing Progress Note Patient Name: Paloma Cannon Patient [facility] [place] [address] Daily Note: 1930- Bedside report received from off going RN and care of patient assumed. 1999- Initial assessment completed as documented. Patient up to bedside commode to void. Patient had an XL BM. Patient has Dilaudid WAITER/WAITRESS CABIN CLASS pump infusing via bolus at 0.2mg. 2020- Medications administered as ordered, please refer to MAR for full details. 2100- Patient order for blood draws discussed with Dr. Phan. Per LIP labs to drawn after 2200 due to administration of Potassium reducing medications. 223- Blood drawn and sent to lab as ordered. 2320- Patient lab results received and discussed with Dr. Phan. Order for 1 unit of PRBCs received. 0000- Patient reassessment completed as documented. No significant clinical changes noted. 1 unit of PRBCs received and infusing per protocol. Per previous patient history of adverse reaction with blood transfusion orders for IV Benadryl and Solu-cortef obtained. Please refer to Doc flow sheets for full assessment details. 0015- Patient reassessed, no transfusion reactions noted, will continue to monitor patient. 0030- Medications administered as ordered, please refer to MAR for full details for full details. 0200- Patient resting comfortably, will continue to monitor. 0235- Transfusion completed, no transfusion reaction noted. 0400- Patient reassessment completed as documented, no clinical changes noted. Blood drawn and sent to lab as ordered. Please refer to Doc flow sheets for full assessment details. 0600- Patient turned and repositioned. Medication administered as ordered, please refer to MAR for full details. 0720- Bedside report given to oncoming RN and care of patient relinquished. This note was completed by: Angella Barreto RN Previous Version Shaheen Crandall MD 10/25/2017 8:56 AM Signed NEPHROLOGY CONSULT PROGRESS NOTES PATIENT NAME: Paloma Cannon SERVICE DATE: 10/25/2017 SERVICE TIME: 8:53 AM CONSULTING SERVICE: NEPHROLOGY ASSESSMENT/PLAN CAPRICE on CKD 3 CAPRICE likely from contrast nephropathy. Treatment is conservative Her renal function continues to worsen. Will plan a dialysis session today via her apheresis catheter. Will order dialysis as needed until she has renal recovery. Order 2L UF Serial labs ? Hyperkalemia Will improve with HD ? Hyperphosphatemia Will improve with HD SUBJECTIVE INTERVAL HPI: still having pain. Concerned about her SOB. UOP 200cc MEDICATIONS: Current hospital medications: diphenhydrAMINE 50 mg (BENADRYL) 50 mg ORAL q 6 H PRN gabapentin 100 mg cap(s) (NEURONTIN) 100 mg ORAL TID pantoprazole [address] 40 mg tab(s) (PROTONIX) 40 mg ORAL DAILY (6 AM) senna 17.2 mg tab(s) (SENOKOT) 17.2 mg ORAL BID docusate sodium 100 mg cap(s) (COLACE) 100 mg ORAL BID ondansetron (PF) 4 mg injection (ZOFRAN) 4 mg INTRAVENOUS q 6 H PRN 0.9% NaCl 10 mL 10 mL INTRAVENOUS q 12 H 0.9% NaCl 20 mL 20 mL INTRAVENOUS PRN 0.9% NaCl 10 mL 10 mL INTRAVENOUS q 12 H 0.9% NaCl 20 mL 20 mL INTRAVENOUS PRN HYDROmorphone WAITER/WAITRESS CABIN CLASS 0.5 mg/mL in NaCl 0.9% 100 mL INTRAVENOUS CONTINUOUS predniSONE (DELTASONE) tab(s) 80 mg 80 mg ORAL DAILY sulfamethoxazole-trimethoprim 800-160 mg 1 tablet (BACTRIM DS,SEPTRA DS) 1 tablet ORAL hydrocortisone topical cream 1% TOPICAL BID PRN OBJECTIVE PHYSICAL EXAM: Patient Vitals for the past 24 hrs: BP Temp Temp src Pulse Resp SpO2 Height Weight 10/25/17 0600 141/70 - - 100 15 97 % 160 cm (5' 2.99) 104.1 kg (229 lb 8 oz) 10/25/17 0500 146/68 - - 93 13 - - - 10/25/17 0400 136/59 36.5 ?C (97.7 ?F) Axillary 88 13 98 % - - 10/25/17 0300 143/70 - - 87 11 98 % - - 10/25/17 0235 145/71 36.5 ?C (97.7 ?F) Oral 89 11 - - - 10/25/17 0200 128/68 - - 87 12 98 % - - 10/25/17 0100 152/89 - - 100 15 100 % - - 10/25/17 0015 154/75 36.5 ?C (97.7 ?F) Oral 108 17 - - - 10/25/17 0000 138/76 36.6 ?C (97.9 ?F) Oral 95 10 99 % - - 10/24/17 2300 110/59 - - 92 9 98 % - - 10/24/17 2200 140/74 - - 101 14 99 % - - 10/24/17 2100 147/64 - - 92 9 97 % - - 10/24/17 2000 120/77 - - 97 22 99 % - - 10/24/17 1938 - 36.5 ?C (97.7 ?F) Axillary - - - - - 10/24/17 1900 128/69 - - 89 14 96 % - - 10/24/17 1800 112/67 - - 92 15 96 % - - 10/24/17 1700 136/74 - - 92 22 99 % - - 10/24/17 1600 148/76 37 ?C (98.6 ?F) Oral 93 12 95 % - - 10/24/17 1500 129/59 - - 98 18 95 % - - 10/24/17 1415 156/72 36.4 ?C (97.5 ?F) Oral 108 25 - - - 10/24/17 1400 125/72 - - 94 13 95 % - - 10/24/17 1300 121/59 - - 91 13 97 % - - 10/24/17 1200 127/66 36.5 ?C (97.7 ?F) Oral 88 7 96 % - - 10/24/17 1100 131/71 - - 100 13 95 % - - 10/24/17 1000 120/68 - - 91 10 95 % - - 10/24/17 0900 130/62 - - 103 19 92 % - - Body mass index is 40.66 kg/(m2). Date 10/25/17 07 - 10/26/17 0659 Shift 0619-9176 0305-4134 7309-2123 24 Hour Total I N T A K E Shift Total O U T P U T Urine 5 5 Tubes 0 0 Shift Total 5 5 Weight (kg) 104.1 104.1 104.1 104.1 Intake/Output 10/22/17 0700 - 10/23/17 0659 10/23/17 0700 - 10/24/17 0659 10/24/17 0700 - 10/25/17 0659 10/25/17 0700 - 10/26/17 0659 Intake (ml) 0 3152 2873 -- Output (ml) 220 634 431 5 Net (ml) -220 2518 2442 -5 GENERAL: no distress LUNGS: CTA anteriorly CARDIAC: Normal S1 and S2; no rubs, murmurs, or gallops EXTREMITIES:Trace edema DATA: Diagnostic tests reviewed for today's visit: Most recent labs CBC, Coags, BMP, Mg, Phos Recent Labs 10/25/17 0500 10/24/17 2230 10/24/17 1355 10/24/17 1200 10/24/17 0405 10/23/17 0630 WBC 21.88* 25.41* -- 26.49* < > 28.42* < > 17.22* HB 7.0* 6.7* -- 6.8* < > 6.7* < > 4.8* HCT 20.0* 19.3* -- 20.1* < > 20.0* < > 15.6* PLT 92* 106* -- 122* < > 151 < > 187 NA 125* 128* 129* -- -- -- < > 139 K 5.5* 5.0 6.0* -- -- -- < > 4.1 CHLOR 85* 86* 89* -- -- -- < > 97* CO2 25 24 27 -- -- -- < > 31 BUN 75* 77* 73* -- -- -- < > 63* CREAT 2.86* 2.77* 2.55* -- -- -- < > 1.35 GLUC 97 149* 109* -- -- -- < > 158* CA 7.8* 7.6* 7.9* -- -- -- < > 8.0* MG 2.1 -- -- -- -- 2.1 -- 2.0 P 8.6* -- -- -- -- 7.8* -- -- < > = values in this interval not displayed. Liver Function, Amylase, AND Lipase Recent Labs 10/25/17 0500 10/23/17 0630 TPROT 4.7* 4.3* ALB 3.0* 3.2* ALT 106* 9 AST 73* 14 ALKPHOS 44 34* TBILI 0.8 0.4 AMYLASE -- 47 LIPASE -- 48 ABGs SIGNATURE: Shaheen Crandall MD DATE: October 25, 2017 TIME: 8:53 AM Sapna Wyatt MD 10/25/2017 6:[address] FRED STONE, SR. HOSPITAL STAFF PHYSICIAN NOTE OF PERSONAL INVOLVEMENT IN CARE I have seen and examined the patient, reviewed the progress note completed by the nurse practitioner, and agree with the history, exam, and assessment/plan, with the following exceptions/additions. If there are fernandes items that I feel deserve particular emphasis, I have outlined them below. Please refer to the nurse practitioner note for full details, including a summary of our mutually agreed upon findings, assessment/plan, and recommendations. IMPRESSION:?27 y.o. 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 ?? PLAN:? ?? Acute on chronic hypoxic resp failure - currently on 6L O2 NC, titrate O2 down as able (2L O2 NC at home). HFpEF?- continue diuresis. Acute blood loss anemia due to retroperitoneal bleeding from L3 lumbar artery?- s/p embolization by IR 10/23, transfuse PRN, will need platelets + FFP if requires massive transfusion. Has serosanguinous drainage from femoral site, feel this is due to her edema, feel this is less likely urine as she currently has CAPRICE (see below). HIT - follow labs, Heme following. APS w/hx of VT/PE requiring thrombectomy in the past and recent DAH- holding AC (see above). ?Hematology following. Continue Prednisone taper + Bactrim PPx. Will need routine plasmapheresis 10/30. b/l ilac venous stents and endograft into IVC/Hx of AV fistula b/l LE's - created surgically in the past, Vascular following. Will b/l LE dopplers. HTN?- hold home meds for now. CAPRICE on CKD 3?- likely due to contrast nephropathy, baseline Cr 1.4, will need HD, Nephrology following. Hyperkalemia - due to above, medical tx. Hypervolemic hyponatremia - Nephrology following. Neuropathy?- continue Gabapentin at low dose adjusting for renal function (home med). GERD?- PPI (home med). DVT PPx - SCD's, holding meds due to acute hemorrhage. Awaiting transfer to [facility] as she will need plasmapheresis. ? Patient/Family Updated: d/w pt at bedside. I had also updated her over the phone yesterday, she states she will update her family later today. This patient has a high probability of sudden, clinically significant deterioration, which requires the highest level of physician preparedness to intervene urgently. I managed/supervised life or organ supporting interventions that required frequent physician assessment. I have devoted my full attention to the direct care of this patient for the amount of time indicated below. I have included time that I spent with family or surrogates only if the patient was incapable of providing the necessary information or participating in medical decision making. This critical care time is exclusive of any time devoted to teaching or for separately billable procedures. Critical Care Documentation: The patient has the following organ/system impairment(s): Acute kidney injury, Coagulopathy, Complex life-threatening medical problem(s), Respiratory failure (Acute, with Hypoxemia) and CKD, APS, HIT, HFpEF Time spent providing critical care services: 30 minutes. SIGNATURE: Sapna Wyatt MD [facility] PAGER:[phone] DATE of SERVICE: 10/25/17 TIME of SERVICE: 9:13 AM ROBBI Dahl 10/25/2017 10:54 AM Signed CARE MANAGEMENT PROGRESS NOTE SERVICE DATE: 10/25/2017 SERVICE TIME: 10:52 AM LOS: 2 days Per huddle. Pt is being transferred to [facility]. Potentially before Monday. CM to follow and support. Pt home with spouse. Likely no skilled needs. SIGNATURE: ROBBI Dahl PATIENT NAME: Paloma Cannon DATE: October 25, 2017 TIME: 10:52 AM PAGER/CONTACT #: [phone] ALLYSON Rosas Tech 10/25/2017 12:50 PM Addendum UNIVERSAL PROTOCOL / SAFETY CHECKLIST Procedure to be performed: Hemodialysis Sign in Communication: Completed Hepatitis is negative at this time Time Out: Team Confirms the Correct Patient, Correct Procedure, Correct Site and Site Marking, Correct Position (if applicable), Prep and Dry Time (if applicable). Time: 1049 Affirmation of Time Out: YES Sign Out Discussion: Completed Pt treatment started at 1049 with no problems. Pt is set to have a 2 hour treatment and in that time we are going to attempt to remove 2L . This is pt first hemodialysis treatment. Pt is allergic to heparin. Pt arterial on her cvc does not aspirate or flush that well. Her venous flushes and aspirate well. Pt lines are reversed. Pt lumens are 1.6ml each. Pt floor RN did assessment. Dialysis was explained to pt. We will continue to monitor pt for the remainder of her treatment. -TB 1128 Hepatitis was drawn and sent to the lab right after treatment was started-TB 1251 pt treatment is complete. We removed 2L lumens infused with sodium citrate 4% and capped off. Report given to floor RN-ALLYSON Marquez Previous Version ALLYSON Rosas Tech 10/25/2017 11:27 AM Signed PATIENT EDUCATION TOPIC: PATIENT INFORMATION: Plan of Care PATIENT NAME: Paloma Cannon PATIENT LOCATION: [place] [address] [id number] READINESS TO LEARN COGNITIVE ABILITY: Alert and oriented MOTIVATION TO LEARN: Interested FAMILY SUPPORT: None - Unavailable/disinterested INSTRUCTION PROVIDED TO: Patient PATIENT LEARNS BEST BY: Verbal Instruction FACTORS AFFECTING LEARNING: None PHYSICAL LIMITATIONS AFFECTING LEARNING: None LEARNING RESPONSE DIAGNOSIS: ADULT: Renal Trauma PATIENT/FAMILY RESPONSE: Verbalizes understanding of: CATHETER CARE-Correct procedure to perform catheter care METHOD OF INSTRUCTION: Individual instruction FOLLOW-UP PLAN: Complete - No need for follow-up INSTRUCTIONAL AIDS USED: NA SUPPLEMENTAL MATERIAL PROVIDED TO PATIENT: None REFERRAL (RECOMMENDATION): None Electronically Signed By: ALLYSON Rosas RN, RN 10/25/2017 4:57 PM Addendum Nursing Progress Note Patient Name: Paloma Cannon Patient Location: [place] [address] Daily Note:0800- Report and SBAR with offgoing RN, see flow sheet for details. GENERATION MECHANIC HELPER updated by offgoing nurse, will review labs etc 0830- Dr Crandall in for rounds, will order HD treatment, informed pt and discussed treatment 0900- Lab sent per order 0920- Director Diabetes in with MICU team for rounds, updated on status. Pt states pain in Left flank is at 40/10, orders placed for oral pain medication and will give clinician dose of dialudid 1000- Dialysis nurse arrived BS to set up for treatment 1220- Pt complaining of severe pain, rates 20/10, is undergoing HD treatment at this time. Notified Brandi GENERATION MECHANIC HELPER pt is continuously having severe pain, will discuss pain medication orders with can intake worker 1320- HD treatment completed, PRBC's sent for, will administer solu-cortef and benedryl 1345- heavy assist OOB to recliner, pt weak but able to stand and pivot. 1425- PRBC's started, pt remains in recliner, states pain is somewhat better. Drinking liquid supplements. Received benedry and solu medrol prior to transfusion This note was completed by: Roxane Campbell RN Previous Version Navi Giang APRN.DIRECTOR OF HOTEL 10/25/2017 4:14 PM Addendum MICU PROGRESS NOTE WITH COORD CARE SERVICE DATE: 10/25/2017 SERVICE TIME: 12:00 Admission Date: 10/23/2017 Day #: 3 in the MICU. 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 She was discharged yesterday after she stabilized and reached her home around 6 PM. She started having severe left sided abdominal pain under her breast radiating down to thigh region and went back to [facility] ED. She had a CT abdomen at outside hospital. Showed extensive L. retroperitoneal Hemorrhage with mass effect to left kidney. Also less extensive hemorrhage present along the surface of the spleen and along mesentery. Transferred to MICU as [facility] had no beds. On arrival to MICU patient complained of severe excruciating pain in the left abdomen, 10/10 in intensity, sharp in quality radiating from Left breast to thigh region. Pain is constant per patient and only minimally improved with Dilaudid patient received in [facility]. ICU course: HG 4.8, lethargic c/o left flank pain poor relief with IV fentanyl. BP low but acceptable (SBP 100-120) Pt received 2 units emergency blood, IR consulted, underwent urgent L RP angiogram, found to have bleeding from multiple foci of the left L3 artery, -> embolized. Incidential finding of large ADHESIVE SPRAYER -CFV fistula, Vascular Surgery consulted -. fistula created in 2013 no need for intervention will arrange for US eval for thrombus. 10/24 HG drifting down, (expected). required 2 units PRBC today. oliguric CAPRICE, UOP 0-5 cc/hr overnight, with rising CR, potassium 6 Nephrology consulted (contrast nephropathy), conservative management, may require HD, holding today. IV hyperkalemia protocol, kayexalate repet bmp 9PM Family requests transfer to [facility] . AC on hold in setting acute bleed 10/25: IV Lasix and Demedex diuretics did not improve u/o. Received 2 units PRBCs overnight with total of 7 units PRBCs since admission to . Is premedicated with diphenhydramine AND solu-cortef prior to each infusion of PRBCs.Nephrology consult to Dr Crandall who ordered HD through Apheresis port. Having problems with pain control. Has Dilaudid WAITER/WAITRESS CABIN CLASS. Added scheduled Percocet 1 q6h. Will continue to work with pt on pain control. Updated on plan of care. Assessment/Plan retroperitoneal bleed 10/23. HG 4.8, required 4 units PRBC underwent IR embolization of left lumbar artery serous output from right groin pouch placed HG continues to drift down (expected), required additional 2 units post procedure Plan: - transfused 1 unit PRBC today -PRBC 1 unit is transfused for Hgb > 7-with premedication benadryl AND solu-cortef Q4h HANDH's Neuro: Peripheral neuropathy left flank pain Plan: -add Gabapentin, reduced dose given renal failure -dilaudid WAITER/WAITRESS CABIN CLASS -0.2mg q 20 minutes no basal -percocet p.o. Scheduled Continue to assess for effective pain management. Cardiovascular: HFpEF: LVEF ~ 50% BP low on presentation in setting acute blood loss anemia Has not required pressors improved, holding antihypertensives Plan: - Amlodipine, hydralazine, currently on hold resume if pt becomes hypertensive Renal: Acute on chronic renal disease 2/2 contrast nephropathy CKD (baseline Cr ~ 1.1-1.3): Cr 1.32 upon presentation now 2.86 worsening renal function contrast, hyperkalemia (6) -Nephrology updated oliguric UOP 5-10cc/h poor response to low dose lasix Plan: - Monitor BUN/Cr -zuniga for accurate I/O in setting oliguric CAPRICE -Nephrology consulted - Dr Crandall -HD ordered per Dr Crandall-2 liters removed Hematology: - 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 discharged 10/22 on fondaparinux currently on hold Plan: Consulted hematology, appreciate recs --plasmapheresis q 2 weeks and prednisone 80 mg daily; a prednisone taper by 20 mg every four days (with maintenance of prednisone 5 mg daily) plasmapheresis due Monday will transfer to [facility] by Monday 10/30 Prophylactic: - PPI -a/c held, scd's ADHESIVE SPRAYER -CFV fistula, Vascular Surgery consulted -. fistula created in 2013 no need for intervention FULL CODE difficult airway seen and discussed with Dr Wyatt On transfer to [facility] to [facility] Dr Womack contacting MICU staff to discuss transfer No [facility] bed avail. today 10/25. OBJECTIVE: VITAL SIGNS (last 24hrs min/max): Temp Av.6 ?C (97.9 ?F) Min: 36.5 ?C (97.7 ?F) Max: 37 ?C (98.6 ?F) Pulse Av.1 Min: 87 Max: 121 No Data Recorded Cuff BP Min: 91/56 Max: 154/75 Pain Score: 10/10 Vital signs reviewed. Relevant comments- VSS on NC O2 NET FLUID BALANCE Intake/Output Summary (Last 24 hours) at 10/25/17 1548 Last data filed at 10/25/17 1251 Gross per 24 hour Intake 1941 ml Output 2766 ml Net -825 ml MEDICATIONS Current hospital medications: oxyCODONE-acetaminophen 5-325 mg 1 tablet (PERCOCET) 1 tablet ORAL q 6 H HYDROmorphone 0.5 mg/mL WAITER/WAITRESS CABIN CLASS CLINICIAN DOSE 0.4 mg 0.4 mg INTRAVENOUS ONCE diphenhydrAMINE 50 mg (BENADRYL) 50 mg ORAL q 6 H PRN gabapentin 100 mg cap(s) (NEURONTIN) 100 mg ORAL TID pantoprazole DR 40 mg tab(s) (PROTONIX) 40 mg ORAL DAILY (6 AM) senna 17.2 mg tab(s) (SENOKOT) 17.2 mg ORAL BID docusate sodium 100 mg cap(s) (COLACE) 100 mg ORAL BID ondansetron (PF) 4 mg injection (ZOFRAN) 4 mg INTRAVENOUS q 6 H PRN 0.9% NaCl 10 mL 10 mL INTRAVENOUS q 12 H 0.9% NaCl 20 mL 20 mL INTRAVENOUS PRN 0.9% NaCl 10 mL 10 mL INTRAVENOUS q 12 H 0.9% NaCl 20 mL 20 mL INTRAVENOUS PRN HYDROmorphone WAITER/WAITRESS CABIN CLASS 0.5 mg/mL in NaCl 0.9% 100 mL INTRAVENOUS CONTINUOUS predniSONE (DELTASONE) tab(s) 80 mg 80 mg ORAL DAILY sulfamethoxazole-trimethoprim 800-160 mg 1 tablet (BACTRIM DS,SEPTRA DS) 1 tablet ORAL -WE hydrocortisone topical cream 1% TOPICAL BID PRN INFUSIONS HYDROmorphone WAITER/WAITRESS CABIN CLASS 0.5 mg/mL Lines, Drains, and Airways Line Central Line Single Lumen Non-tunneled Left Chest -- days Dialysis / Apheresis Double Lumen Admission to Hospital Non- tunneled Left Chest -- days Peripheral 10/23/17 1235 Right Antecubital 2 days Drain Indwelling Urinary Catheter 10/23/17 0520 Assessment Zuniga 2 days Drain/Tube 10/24/17 0200 Assessment Right Groin Drain #1 1 day PHYSICAL EXAM HEENT: Oral Mucosa: Dry mucous membranes Feeding Tube: No Eyes: PERRLA Neck: Unremarkable; No adenopathy or JVD Cardiovascular: Regular rhythm Relevant Hemodynamic Data: Occ mild sinus tachycardia Respiratory: Clear to auscultation Supplemental Oxygen: Yes. FiO2 NC %FIO2 Min: 30 Max: 55 Abdomen: Firm and tender to light touch. BS's diminished Extremities: Edema- No Peripheral Pulses- Present all extremities Skin: Abnormalities- yes Breakdown- No Neurologic: Awake, oriented and Alert NUTRITION: regular with dietary supplements for poor appetite Enteral Feeds: No DATA: Diagnostic tests reviewed for today's visit: Most recent labs and imaging results. LABS: CBC, Coags, BMP, Mg, Phos Recent Labs 10/25/17 0853 10/25/17 0500 10/24/17 2230 10/24/17 1355 10/24/17 0405 10/23/17 0630 WBC 19.99* 21.88* 25.41* -- < > 28.42* < > 17.22* HB 6.7* 7.0* 6.7* -- < > 6.7* < > 4.8* HCT 19.1* 20.0* 19.3* -- < > 20.0* < > 15.6* PLT 87* 92* 106* -- < > 151 < > 187 NA -- 125* 128* 129* -- -- < > 139 K -- 5.5* 5.0 6.0* -- -- < > 4.1 CHLOR -- 85* 86* 89* -- -- < > 97* CO2 -- 25 24 27 -- -- < > 31 BUN -- 75* 77* 73* -- -- < > 63* CREAT -- 2.86* 2.77* 2.55* -- -- < > 1.35 GLUC -- 97 149* 109* -- -- < > 158* CA -- 7.8* 7.6* 7.9* -- -- < > 8.0* MG -- 2.1 -- -- -- 2.1 -- 2.0 P -- 8.6* -- -- -- 7.8* -- -- < > = values in this interval not displayed. Cardiac Enzymes CULTURES: Blood: No growth to date Urine: No growth to date Sputum: No growth to date PATIENT CHECKLIST ? Are restraints necessary: No ? Deep vein thrombosis prophylaxis administered? No. Contraindicated. ? Stress ulcer prophylaxis? Yes ? Nasogastric tube? No ? Zuniga catheter necessary? Yes ? Is central line essential? Yes ? Plan discussed with assigned RN? Yes ? Family updated within last 24 hours? Yes Critical Care Time 40 minutes. SIGNATURE: Navi Giang APRN.CNP PATIENT NAME: Paloma Cannon DATE: October 25, 2017 TIME: 3:47 PM PAGER/CONTACT #: [phone] Previous Version Kenisha Amaya RN, RN 10/25/2017 10:49 PM Addendum Nursing Progress Note Patient Name: Paloma Cannon Patient Location: -[id number]/-[id number] 1915: Report received from day RN. 1999: Assessment complete pt is AANDO x3 and following commands, complaints of flank pain 03/19, encouraged use of WAITER/WAITRESS CABIN CLASS. Sinus rhythm on the monitor. SpO2 is 100% on 6L NC, will titrate down as able. For complete assessment see flow sheet. 2144: Pt received bed at main [place], [facility] bed 6. Critical Care transport ETA is 1 hour. 2149: Report called to [facility] JEFF Anguiano. 5: Belongings verified with pt. Percocet given early in anticipation of transport. 0: Critical care transport at bedside, Dilaudid gtt discontinued. 2230: Pt transported off the unit in stable condition. Pt's father Morgan notified of transfer as husbands phone number was not working. This note was completed by: Kenisha Amaya RN Previous Version GHAZALA RIVAS 10/26/2017 11:43 AM Signed DISCHARGE MEDICATION REVIEW BY PHARMACY Patient Name: Paloma Cannon Admission Date: 10/23/2017 Date of Contact: October 26, 2017 Time of Contact: 11:43 AM Medication list was reviewed by a Pharmacist for drug interactions or drug related problems:Yes Below is a summary of pharmacist recommendations discussed with LIP: No Recommendations at this time from Discharge Medication List. CARITO FERRARI PHARMACIST October 26, 2017 11:43 AM Pager: [phone] 10/26/2017 11:43 AM Medication List START taking these medications diphenhydrAMINE 50 mg capsule Commonly known as: BENADRYL Take 1 capsule by mouth every 6 hours as needed for Itching/Rash. CHANGE how you take these medications gabapentin 100 mg capsule Commonly known as: NEURONTIN Take 1 capsule by mouth three times daily for 7 days. What changed: - how much to take - how to take this - when to take this - additional instructions CONTINUE taking these medications FLONASE 50 mcg/actuation nasal spray Generic drug: fluticasone predniSONE 20 mg tablet Commonly known as: DELTASONE Take 4 tablets by mouth once daily for 8 days. PROTONIX 40 mg tablet Generic drug: pantoprazole DR senna 8.6 mg Tab Commonly known as: SENOKOT Take 1 tablet by mouth twice daily as needed. sulfamethoxazole-trimethoprim 800-160 mg per tablet Commonly known as: BACTRIM DS Take 1 tablet by mouth every Monday,Monday,Monday. ZOFRAN 8 mg tablet Generic drug: ondansetron STOP taking these medications amLODIPine 5 mg tablet Commonly known as: NORVASC cetirizine 10 mg tablet Commonly known as: ZyrTEC COMPOUNDED PRESCRIPTION fondaparinux 2.5 mg/0.5 mL Syrg Commonly known as: ARIXTRA torsemide 20 mg tablet Commonly known as: DEMADEX ASK your doctor about these medications HYDROmorphone 0.5 mg/mL WAITER/WAITRESS CABIN CLASS CLINICIAN DOSE 0.5 mg/mL Inject 0.8 mL intravenously one time only for 1 dose. Ask about: Should I take this medication? Where to Get Your Medications Information about where to get these medications is not yet available ! Ask your nurse or doctor about these medications - diphenhydrAMINE 50 mg capsule - gabapentin 100 mg capsule - HYDROmorphone 0.5 mg/mL WAITER/WAITRESS CABIN CLASS CLINICIAN DOSE 0.5 mg/mL CONSULT Observed: 10/24/2017 Status: COMPLETED Source: [place] 12:00 AM CLINIC OTHER CAMPUS REPOSITORY O ID: [id number] Author: Shaheen Crandall Service: Hypertension AND Nephrology Author Type: Physician Type: Consults Filed: 11/16/2017 5:35 PM Note Text: [facility] - Consultation PALOMA CANNON : 1990 AGE: 27 SEX: F ACCTNUM: [id number] [facility]: [facility] LOCATION: [facility] ATTENDING PHYSICIAN: SAPNA WYATT DATE OF CONSULTATION: 10/24/2017 CONSULTING PHYSICIAN: Shaheen Crandall M.D. REASON FOR CONSULTATION: Acute kidney injury on CKD stage 3. 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 She was at the [facility] from October 13 through October 22 for alveolar hemorrhage. She got home around 6 p.m. yesterday. She started having severe left- sided abdominal pain and went back to ER. She had a CT of the abdomen showing extensive retroperitoneal hemorrhage with mass effect on the left kidney and thus she was transferred here. There were no beds at the [facility]. She had an angiogram performed, which showed bleeding from her left L3 artery and this was embolized. She required 200 cc of IV contrast. There is also an incidentally found ADHESIVE SPRAYER disease SV fistula. Her urine output has declined since yesterday. Her urine output was 419 cc in the morning shift yesterday, was 91 cc over the next shift, and 24 cc over the next shift. There is no urine output documented yet for this morning shift. She is mildly hypotensive. Her lowest blood pressure was 99/49, but her blood pressure is 115/62 now. She is awake and alert and knows her history well. She feels swollen right now. She usually takes torsemide 20 to 60 mg per day as an outpatient. She said she would normally takes something like 80 mg on a day like today due to her fluid overload. She did require 4 units of packed red blood cells for hemoglobin of 4.8. Her baseline creatinine is approximately 1.2 to 1.5. Her creatinine went up to 1.86 and then 2.05 this morning with a phosphorus of 7.8 and a potassium of 5.9. She is currently on a Dilaudid WAITER/WAITRESS CABIN CLASS for her pain. She does have multiple bruises on her right arm. 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 OUTPATIENT MEDICATIONS: Prednisone 80 mg daily for 8 days; Arixtra; Norvasc 5 mg b.i.d.; Zofran; Protonix; Zyrtec; Neurontin 400 in morning, 300 in the afternoon, 300 in the evening, Demadex 20 to 60 mg daily as needed for edema; Bactrim 1 tab every Monday, Monday, Monday; Flonase nasal spray, senna. ALLERGIES: Rhubarb, heparin, IV contrast, rituximab. FAMILY HISTORY: No end-stage renal disease. SOCIAL HISTORY: Lives with her . No smoking. REVIEW OF SYSTEMS: A 10-point review of systems negative except that specified in HPI. PHYSICAL EXAMINATION: Temperature 36.6, pulse 108, respiratory rate 15, blood pressure 115/62, satting 95% on 6 L nasal cannula. In general, no acute distress. Head: Normocephalic, atraumatic. ENT: Moist mucous membranes. Eyes: Sclerae anicteric. Neck: Supple. Cardiac: Regular rate and rhythm. Lungs: Clear to auscultation anteriorly bilaterally. She is unable to sit forward. Abdomen: Soft and nontender. Extremities: 2+ lower extremity edema. : She has a Zuniga with dark yellow urine. Neuro: Alert and oriented x3. Skin: She does have bruising on her right arm. LABORATORY DATA: White count 28.0, hemoglobin 7.2, platelets 140. Sodium 130, potassium 5.9, chloride 89, CO2 26, BUN 69, creatinine 2.05, glucose 154, calcium 7.8, magnesium 2.1, phosphorus 7.8, albumin 3.2. IMAGING: Echo from October 13 shows EF of 47%. There is no significant change from her previous echo. She has multiple hypokinetic regions. There is LV diastolic dysfunction. Her last kidney ultrasound was in 2017. This showed normal-sized kidneys with thin parenchymal thickness. Chest x-ray. I reviewed the chest x-ray, it is a poor inspiration. There does seem to be volume overload with some opacities in her lungs. ASSESSMENT AND PLAN: 1. Acute kidney injury on chronic kidney disease stage 3. Her acute kidney injury is due to contrast nephropathy. She did require 200 cc of IV contrast for her embolization. Her treatment of a contrast nephropathy is conservative. Renal function will hopefully improve within the next few days. Typically contrast nephropathy resolves within 48-72 hours. She might take longer to recover though due to the high dose of IV contrast. We will give her 1 dose of IV Lasix 20 mg to improve her volume status. We can consider dosing with higher doses of Lasix, if needed. Check daily labs. 2. Hyperkalemia. I agree with Kayexalate. We will place on a low-potassium diet. 3. Hyperphosphatemia. We will add phosphorus binders, if her phosphorus continues to rise. This is above 5.5 presently. 4. Antiphospholipid antibody syndrome. Thank you for allowing me to participate in the care of your patient. Please contact me with any further questions or concerns. Shaheen Crandall M.D. Nephrology SB:[id number] /[id number] CBC Collected: 10/23/2017 Status: F Source: [facility] 8:30 PM [facility] OTHER CAMPUS REPOSITORY TYPE CODE TESTS RESULT OUT OF REFERENCE UNITS RANGE LAB WBC 3.70-11.00 k/uL WBC High 23.91 LAB RBC 3.90-5.20 m/uL Low RBC 2.63 LAB HGB 11.5-15.5 g/dL Low Hemoglobin 7.5 LAB HCT 36.0-46.0 % Low Hematocrit 22.9 LAB MCV 80.0-100.0 fL MCV 87.1 LAB MCH 26.0-34.0 pG MCH 28.5 LAB MCHC 30.5-36.0 g/dL MCHC 32.8 LAB RDWCV 11.5-15.0 % RDW-CV High 17.5 LAB PLTCT 150-400 k/uL Platelet Count 168 Result Comment: Reviewed Sample checked for a clot. LAB MPV 9.0-12.7 fL MPV 10.8 LAB ABSNUC <0.01 k/uL High Absolute nRBC 0.12 Performed By: #### CBC, BMP #### [place] [address] BASIC METABOLIC PANL Collected: 10/23/2017 Status: F Source: [place] 8:30 PM [facility] REPOSITORY TYPE CODE TESTS RESULT OUT OF REFERENCE UNITS RANGE LAB GLU 65-100 mg/dL Glucose High 172 LAB BUN 8-25 mg/dL BUN High 66 LAB CRET 0.70-1.40 mg/dL High Creatinine 1.86 LAB NA 132-148 mmol/L Sodium 132 LAB K 3.7-5.1 mmol/L High Alert Potassium 6.2 Result Comment: Called to and read back by: George Zhang [facility] 10/23/17 23:03 [facility] LAB CL 98-110 mmol/L Low Chloride 90 LAB CO2 23-32 mmol/L CO2 26 LAB AGAP 9-18 mmol/L Anion Gap 16 LAB CA 8.5-10.5 mg/dL Low Calcium, Total 7.8 LAB GFRAA >60 Low eGFR- Amer. 39 LAB GFRNAA >60 . Low eGFR-All Other Races 32 Performed By: #### CBC, BMP #### [place] [address] Observed: 10/23/2017 Status: F Source: [facility] BLOOD CULTURE 8:30 PM [facility] REPOSITORY Culture Result - No growth 5 days Performed By: #### BLCUL #### [facility] [address] [place] [address] PROGRESS Observed: 10/23/2017 Status: COMPLETED Source: [place] 7:43 PM [facility] REPOSITORY HNO ID: [id number] Author: Radha Brown Service: Critical Care Author Type: Nurse Practitioner Type: Progress Notes Filed: 10/23/2017 7:46 PM Note Text: MICU PROGRESS NOTE WITH COORD CARE SERVICE DATE: 10/23/2017 SERVICE TIME: 844 Admission Date: 10/23/2017 Day #: 1 in the MICU. 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 She was discharged yesterday after she stabilized and reached her home around 6 PM. She started having severe left sided abdominal pain under her breast radiating up to thigh region after that and went back to OTH ED. She had a CT abdomen done at outside hospital that showed extensive retroperitoneal Hemorrhage on the left with mass effect on the left kidney. Also less extensive blood products present along the surface of the spleen and in the mesentery. She was transferred to MICU as [facility] had no beds. On arrival to MICU patient complained of severe excruciating pain in the left abdomen, 10/10 in intensity, sharp in quality radiating from Left breast to thigh region. Pain is constant per patient and only minimally improved with Dilaudid patient received in OTH. ICU course: HG 4.8, lethargic c/o left flank pain poor relief with IV fentanyl. BP low but acceptable (SBP 100-120) she received 2 units emergency blood, IR consulted, she underwent urgent L RP angiogram, found to have bleeding from multiple foci of the left L3 artery, -> embolized. Incidential finding of large ADHESIVE SPRAYER -CFV fistula, Vascular Surgery consulted -. fistula created in 2013 no need for intervention will arrange for US eval for thrombus. Assessment/Plan Neuro: Peripheral neuropathy left flank pain Plan: -pt drowsy hold Gabapentin -dilaudid WAITER/WAITRESS CABIN CLASS Cardiovascular: HFpEF: LVEF ~ 50% BP low on presentation in setting acute blood loss anemia Has not required pressors Plan: - Amlodipine, hydralazine, currently on hold resume if pt becomes hypertensive -hold torsemide today will add diuresis if she requires further transfusion h/o HTN: currently not an issue Plan: - Amlodipine, hydralazine, torsemide Renal: CKD (baseline Cr ~ 1.1-1.3): - Cr 1.32 upon presentation Plan: - Monitor BUN/Cr -zuniga for accurate I/O consider removing tomorrow as flank resolves able to become more mobile addendum: low UOP likely secondary to low perfusion in setting anemia repeat bmp, consider resuming demadex Hematology: - 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 discharged 10/22 on fondaparinux Plan: - Consult hematology, appreciate recs -hold fondaparinux in setting active bleed --plasmapheresis q 2 weeks and prednisone 80 mg daily; a prednisone taper by 20 mg every four days (with maintenance of prednisone 5 mg daily) Prophylactic: - PPI FULL CODE difficult airway seen and discussed with Dr Wyatt OBJECTIVE: VITAL SIGNS (last 24hrs min/max): Temp Av.4 ?C (97.5 ?F) Min: 36 ?C (96.8 ?F) Max: 36.7 ?C (98.1 ?F) Pulse Av.9 Min: 88 Max: 114 No Data Recorded Cuff BP Min: 99/49 Max: 165/76 Pain Score: 5/10 Vital signs reviewed. NET FLUID BALANCE Intake/Output Summary (Last 24 hours) at 10/23/17 1943 Last data filed at 10/23/17 1800 Gross per 24 hour Intake 1803 ml Output 709 ml Net 1094 ml MEDICATIONS Current hospital medications: ondansetron (PF) 4 mg injection (ZOFRAN) 4 mg INTRAVENOUS q 6 H PRN pantoprazole 40 mg injection (PROTONIX) 40 mg INTRAVENOUS DAILY (6 AM) 0.9% NaCl 10 mL 10 mL INTRAVENOUS q 12 H 0.9% NaCl 20 mL 20 mL INTRAVENOUS PRN 0.9% NaCl 10 mL 10 mL INTRAVENOUS q 12 H 0.9% NaCl 20 mL 20 mL INTRAVENOUS PRN HYDROmorphone WAITER/WAITRESS CABIN CLASS 0.5 mg/mL in NaCl 0.9% 100 mL INTRAVENOUS CONTINUOUS hydrocortisone sodium succinate 50 mg injection (Solu-CORTEF) 50 mg INTRAVENOUS ONCE HYDROmorphone 0.2 mg injection (DILAUDID) 0.2 mg INTRAVENOUS ONCE predniSONE (DELTASONE) tab(s) 80 mg 80 mg ORAL DAILY sulfamethoxazole-trimethoprim 800-160 mg 1 tablet (BACTRIM DS,SEPTRA DS) 1 tablet ORAL diphenhydrAMINE 25 mg (BENADRYL) 25 mg ORAL q 6 H PRN hydrocortisone topical cream 1% TOPICAL BID PRN INFUSIONS HYDROmorphone WAITER/WAITRESS CABIN CLASS 0.5 mg/mL Lines, Drains, and Airways Line Central Line Single Lumen Non-tunneled Left Chest -- days Dialysis / Apheresis Double Lumen Admission to Hospital Non- tunneled Left Chest -- days Peripheral 10/23/17 1235 Right Antecubital less than 1 day Drain Indwelling Urinary Catheter 10/23/17 0520 Assessment Zuniga less than 1 day PHYSICAL EXAM HEENT: Oral Mucosa: Moist mucous membranes Feeding Tube: No Eyes: PERRLA Neck: no jvd Cardiovascular: Regular rhythm no murmur Respiratory: bibasilar crackles insp wheeze bilateral Supplemental Oxygen: Yes. O2 NC 2L No Data Recorded Abdomen: obese soft, firm tender along left flank Extremities: Edema- yes Peripheral Pulses- Present all extremities Skin: Abnormalities- Yes pale ecchymosis left flank bilateral UE Neurologic: Awake, oriented, Alert, Follows commands and Moving all extremities NUTRITION: NPO Enteral Feeds: No DATA: Diagnostic tests reviewed for today's visit: Most recent labs and imaging results. Most recent labs Most recent imaging Most recent EKG LABS: CBC, Coags, BMP, Mg, Phos Recent Labs 10/23/17 1730 10/23/17 1257 10/23/17 0630 10/22/17 0412 10/21/17 0356 WBC 21.60* 17.69* 17.22* < > 9.05 11.41* HB 7.5* 8.1* 4.8* < > 7.5* 8.7* HCT 23.0* 24.2* 15.6* < > 24.6* 28.1* PLT 158 130* 187 < > 163 187 INR -- -- -- -- 1.1 1.1 NA -- -- 139 -- 138 138 K -- -- 4.1 -- 3.8 3.8 CHLOR -- -- 97* -- 93* 93* CO2 -- -- 31 -- 34* 30 BUN -- -- 63* -- 63* 63* CREAT -- -- 1.35 -- 1.38* 1.48* GLUC -- -- 158* -- 96 113* CA -- -- 8.0* -- 8.5 8.9 MG -- -- 2.0 -- 2.1 2.1 P -- -- -- -- 2.7 2.8 < > = values in this interval not displayed. CSF AND Dilantin Liver Function, Amylase, AND Lipase Recent Labs 10/23/17 0630 10/22/17 0412 10/21/17 0356 TPROT 4.3* 5.1* 5.9* ALB 3.2* 3.5* 3.9 ALT 9 13 7 AST 14 19 15 ALKPHOS 34* 38 45 TBILI 0.4 0.4 0.4 AMYLASE 47 -- -- LIPASE 48 -- -- Cardiac Enzymes CULTURES: sent PATIENT CHECKLIST ? Are restraints necessary: No ? Deep vein thrombosis prophylaxis administered? No. Contraindicated. ? Stress ulcer prophylaxis? Yes ? Nasogastric tube? No ? Zuniga catheter necessary? Yes ? Is central line essential? Yes ? Plan discussed with assigned RN? Yes ? Family updated within last 24 hours? Yes Critical Care Time 35 minutes. SIGNATURE: Radha Brown APRN.CNP PATIENT NAME: Paloma Cannon DATE: October 23, 2017 TIME: 7:43 PM PAGER/CONTACT #: [phone] Observed: 10/23/2017 Status: F Source: [facility] BLOOD CULTURE 7:38 PM [facility] OTHER [place] REPOSITORY Sp. Request/Comment: - The blood culture bottles are underfilled. Adding volume lower or higher than the 8 to 10 mL per bottle, which is the manufacturers recommended volume, may adversely affect the re covery and/or detection of organisms. 5.9 CC Culture Result - No growth 5 days Performed By: #### BLCUL #### [facility] [address] [place] [id number] Observed: 10/23/2017 Status: F Source: [facility] URINE CULTURE 6:50 PM [facility] REPOSITORY Sp. Request/Comment: - Specimen received in preservative Culture Result - <10,000 CFU/ml Gram negative bacilli --> ABNORMAL ALERT Insignificant colony count. No further workup. --> ABNORMAL ALERT Performed By: #### URCUL #### [place] [id number] [place] [address] [facility] [address] [place], [place] [address] CBC Collected: 10/23/2017 Status: F Source: [place] 5:30 PM [facility] OTHER [place] REPOSITORY TYPE CODE TESTS RESULT OUT OF REFERENCE UNITS RANGE LAB WBC 3.70-11.00 k/uL WBC High 21.60 LAB RBC 3.90-5.20 m/uL Low RBC 2.66 LAB HGB 11.5-15.5 g/dL Low Hemoglobin 7.5 LAB HCT 36.0-46.0 % Low Hematocrit 23.0 LAB MCV 80.0-100.0 fL MCV 86.5 LAB MCH 26.0-34.0 pG MCH 28.2 LAB MCHC 30.5-36.0 g/dL MCHC 32.6 LAB RDWCV 11.5-15.0 % RDW-CV High 17.2 LAB PLTCT 150-400 k/uL Platelet Count 158 LAB MPV 9.0-12.7 fL MPV 10.7 LAB ABSNUC <0.01 k/uL Absolute High nRBC 0.06 Performed By: #### CBC #### [place] [phone] #### PLATF4 #### [place] [id number] ANTI PLT FACTOR 4 Collected: 10/23/2017 Status: F Source: [facility] AB 5:30 PM [facility] REPOSITORY TYPE CODE TESTS RESULT OUT OF REFERENCE UNITS RANGE LAB PF4COM Plasma+PF4 0.093 Complex Result Comment: OD < 0.400 is negative LAB PF4HI Plas+PF4 Hi Dose Hep 0.092 LAB INHIB % Inhibition Not calculated LAB PF4INT Interpretation Negative Result Comment: No anti-platelet factor 4 IgG antibody is detected by JESSICA assay. Heparin-induced thrombocytopenia (HIT) is unlikely, but should be excluded based on clinical factors. LAB PF4REV Anti-PF4 Test Not Review Indicated Performed By: #### CBC #### [place] [phone] #### PLATF4 #### [place] [id number] NURSING PROG Observed: 10/23/2017 Status: COMPLETED Source: [facility] 4:16 PM [facility] REPOSITORY HNO ID: [id number] Author: Lynne SanchezRn) JEFF Sprague Service: Nursing Author Type: Registered Nurse Type: Nursing Progress Note Filed: 10/23/2017 7:45 PM Note Text: Nursing Progress Note Patient Name: Paloma Cannon Patient Location: -MICU36/-ICU-36 Daily Note: 719 Shift report received from off-going RN. 725 Gemma Maradiaga, lab personnel notified this RN of HgB=10/15. 07 Text paged Deepa WATERS of most recent HgB as noted above. 07 Tanika NEWMAN to contact blood bank. 07 Per Blood bank, will take 2-4 hours until PRBCs available r/t antibodies. Notified Deepa WATERS AND Dr. Welch (Fellow from [facility]). DIRECTOR OF HOTEL calls blood bank after discussion w/ Fellow - pt to receive emergent blood. As well, pt to go to IR. 0755 C/o nausea. Zofran given and will give 1mg dilaudid per order. Will discuss w/ Deepa WATERS R pre-medicate prior to transfusion. Per pt, takes 100mg Solu-Medrol and 50mg benadryl. 0756 Deepa WATERS to bediside to bedside. 0758 Have spoken w/ Kevin Torres, Pharmacist re STAT verification of Solu-Medrol and Benadryl r/t pre-medicating prior to transfusion w/ emergent blood. In process. 08 Clarified pre-medication orders w/ Deepa WATERS as order is for 50 AND 50. Will order another 50mg dose of solu-medrol. Has been given 100mg w/ verbal order from ELLIOTT. Continue to monitor. 0812 Discussed LSO w/ pt who states she is difficult to intubate but is agreeable if necessary. Concern re meds given @ 0330/15/0807 - see MAR. Min RR noted 6. Continue to monitor. 0818 1st unit of PRBCs to bedside. Verified, vitals taken per protocol. Transfusion in progress. Dr. Wyatt to bedside to assess. 08 Pt signed consent for transfusion (had previously given verbal consent). Emergent blood bank form completed by Dr. Wyatt. DIRECTOR OF HOTEL also at bedside. POC includes IR this AM. 0825 Have spoken w/ Kevin Torres, Pharmacist re dilaudid WAITER/WAITRESS CABIN CLASS. Pending arrival of infusion to MICU. 0835 Per DIRECTOR OF HOTEL, ok for ice chips. W/o s/s of aspiration. Refuses oral care/brushing of teeth at this time. 0845 Have requested MEDIA/INSTRUCTIONAL DESIGNER to request 2nd unit of PRBCs. Procedure for each unit is to run @ 125-150ml/h x15 min then if no obvious reaction, 999ml/h. Tolerating 1st 15 min and 999ml/h rate thereafter. Pending arrival of unit #2. 0850 Bag of Dialudid Delivered to bedside. Have discussed w/ MEDIA/INSTRUCTIONAL DESIGNER POC which includes use of Dilaudid IVP until post IR procedure. 0856 Have spoken w/ DIRECTOR OF HOTEL of need for additional IV access as pt has single lumen Franchesca catheter (as well as apheresis cath). Discussed possible placement in IR. Per DIRECTOR OF HOTEL, after consulting w/ Dr. Wyatt, no additional central line placement to be placed - iff need be, will use apheresis catheter. Notified DIRECTOR OF HOTEL of RR min noted bbm - encouraged pt to beathe- concern for additional 0.5mg dilaudid order as pt somnolent after 1mg dilaudid and 50mg bendadryl. Continue to monitor. Hold 0.5mg for now and reassess post procedure. 0905 Per DIRECTOR OF HOTEL, POC includes RN to attempt PIV - no central line to be placed in IR 09 Have provided brief report to Bianca in IR including Dilaudid/Fentanyl/Benadryl/Solu-Medrol and PRBC transfusions for HgB 4.8. POC includes transport personnel on the way. 09 Have updated another IR personnel to same info as that provided to Bianca as noted above. 09 POC includes CBC upon return to MICU post IR procedure. 2nd unit of PRBC in progress. As well, will reassess need for WAITER/WAITRESS CABIN CLASS v. IVP of dilaudid post procedure. 0923 Parted MICU for IR. 0936 10ml blood w/drawn from dual ports of apheresis catheter. Per pt, indwelling Na Citrate - removed in process and ports flushed w/ 20ml NS each. Dr. Gr updated to doses of pain meds at 0330/0615/0807 + bendaryl this date, pt's allergy to contrast dye and pt pre-medicated prior to transfusion of PRBC of 100mg Solu-Medrol and 50mg benadryl, reviewed HANDH results at admit (4.8). Current SpO2 100% on 4L/min. 0939 Have notified Katharina NEWMAN to confirm w/ Deepa WATERS R that additional 2 units of PRBCs should also be given emergently. 0956 [facility] notifies RN of need for emergent transfusion as noted above - [facility] to notify Blood Bank. 1028 3rd unit of PRBCs up at this time. Verified and vitals per protocol. Have called business associateEllen to inquire if imaging disc from [facility] present in pt's chart or belongings per request of Dr. Gr. 1039 No disc available but CT results/report brought to [facility] by business associate for Dr. Gr's review. 1100 Notified [facility] to request 4th unit of PRBCs. IR procedure continues in progress. 1123 Have spoken w/ Kevin Torres, Pharmacist re indwelling citrate per pt. Reviewed pt's allergy to Heprain (RONNIE) - Pharmacist to discuss w/ colleagues and f/up w/ RN. 1134 Kevin Torres notifies this RN of availability of Na Citrate 3ml syringes used for indewlling catheters. Order #[id number]. Will have DIRECTOR OF HOTEL order so that upon arrival in MICU, can indwell apheresis cath ports. 1145 Have notified deepa WATERS of order # and amount required (total 3.2ml) of Na Citrate as noted above. As well, updated to IR procedure as known by this RN. Per Dr. Gr, pt may be required for transfer to [facility] for complex vascular surgery as Dr. Gooden is unable to stent vessel in L groin area. 1150 Charge contacted this RN in IR for updates. Procedure in progress. 1202 Post procedure instructions per Dr. Gr include HOB < 10 and R leg to be extended until 1400. 1204 RN notified that pt had received 2mg versed and 50mcg fentanyl. 1222 TIAGO Hernandez has placed 22 PIV iRAC under [employer] w/ blood return and flush. 1235 Returned to MICU post procedure. Pt drowsy. 1240 Have spoken W/ Kevin Torres re Na Citrate post well treatment offsiderKatharine (pt has dialysis cath) and pt's allergy to heparim. 1242 and Father at bedside.Updated to pt's condition and answered questions as able. In particular, 4 units of PRBCs given, Coils placed in IR, to receive dilaudid WAITER/WAITRESS CABIN CLASS. Per pt, man-made fistulas in groin for increased blood flow to LEs. Pe rHusband, pt is to have next apheresis 10/30 and pt's PLTs are kept @ < 100. Will notify Dr. Wyatt as will need to coordinate transfer to [facility] for such. 1255 Dr. Morillo updated to pt's condition and in particular, pt has been to IR w/ coils, received 4 units for HgB 4.8 and due for apheresis 10/30. 1305 0.5mg dilaudid to be given for continued c/o pain. Will begin WAITER/WAITRESS CABIN CLASS Dialudid pump fernando. Dr. Morillo parted bedside. Awaiting arrival of WAITER/WAITRESS CABIN CLASS pump to bedside. 1307 Blood sample drawn from Franchesca Cath, labeled, verified and sent to lab via tube system (CBC). 1313 1.6ml Na Citrate placed in each apheresis port. Pt on 3L NC. Continue to monitor. 1026-2415 R groin noted to be bleeding - moderate amt. Using ABD, pressure applied to R groin for all of this time. Bleeding stopped. Continue to monitor. 1410 R groin assessed - no further bleeding. W/o evidence of hematoma. Will continue to monitor. 1415 Reports some relief w/ WAITER/WAITRESS CABIN CLASS, however, SpO2 low 90s thus increased FiO2 to 4L/min. 1428 ELLIOTT notified of most recent HANDH 02/08/24.2 and pt request for diet. Tolerating sips and chips. Deepa WATERS to order reg diet. 1338 WAITER/WAITRESS CABIN CLASS Dilaudid began at this time. Instructed in use of demand button and dose and frequency. 1608 Dr. Wyatt at bedside. Thereafter, updated to pt's condition and answered questions. In particular, most recent HANDH and pt's every 4 hour CBC, and effectiveness of dilaudid WAITER/WAITRESS CABIN CLASS per pt report. 1616 Text paged Deepa WATERS R @ [phone]: Bed 36: Reports itching, especially on chest AND back. Requesting benedryl. Please advise. Thanks. Lynne [id number] SR from Vascualr surgery at bedside. 1734 Blood sample drawn from Franchescachano teague, labeled and sent to lab via tube system. 174 Pharmcy notified of need for prn hydrocortisone topical cream 1%. 180 Vascular surgery resident notified this RN of POC to include b/l LE Duplex. 1814 C/o sweating. Temp 36.3. 3 ice packs placed: b/l axialla and posterior neck. 182 WAITER/WAITRESS CABIN CLASS pump use as follows: 15ml total, Total given 7.5mg, 10/20 demand bolus' AND pt bolus 1.2mg. 1824 Text paged Deepa WATERS: Bed 36: Low UOP. Past 2 hours were 10 AND 15ml. Please advise. Thanks. 1835 Text paged Deepa WATERS: Bed 36: We just sent the CBC @ 1730. Do you want lab to stick and then a draw from the [facility] cath? Please advise. Thanks. 1836 Text paged DIRECTOR OF HOTEL: Bed 36: For blood cultures. 1841 Deepa WATERS responded to above text: POC now includes: next CBC AND BMP @ 1999, 1 set of blood cxs to be drawn by lab and [facility] as notified pt had small emesis post ingestion of items from dinner tray. Blood cx from line to also be drawn @ 2000 to conserve waste blood. 185 Urine sample obtained from port for cx, labeled verified and sent to lab via tube system. 1925 Shift report given to on-coming RN. This note was completed by: Lynne Sprague RN CONSULT Observed: 10/23/2017 Status: COMPLETED Source: [place] 3:58 PM [facility]IC OTHER CAMPUS REPOSITORY HNO ID: [id number] Author: Sandra Morillo Service: Hematology/Oncology Author Type: Physician Type: Consults Filed: 10/23/2017 4:35 PM Note Text: History of Present Illness: 27 year old female with h/o catastrophic APS diagnosed 2013 complicated by PE/DVT and receiving plasmapheresis q2 weeks, Diffuse alveolar hemorrhage (on Prednisone/Cytoxan) who was discharged yesterday from [facility]. On Fondaparinux 7.5mg and on Prednisone 80mg prior to discharge. She was to taper prednisone on discharge. She underwent Plasma exchange 10/16 and 10/18 and is scheduled again 10/30. After her journey home yesterday she developed severe left flank pain and her brought her to [facility]. Today she had MULTIPLE FOCI OF ACTIVE EXTRAVASATION FROM BRANCHES OF THE LEFT L3 LUMBAR ARTERY and underwent SUCCESSFUL GELFOAM/COIL EMBOLIZATION OF THE MIDPORTION OF THIS ARTERY. She received PRC. PAST MEDICAL HISTORY Diagnosis Date - (HFpEF) heart failure with preserved ejection fraction (HCC) 02/20/2016 HFpEF w last EF 50-55% On Torsemide, coreg, hydralazine and imdur at home No signs of acute exacerbation on admission Plan: -Continue home medications - Anasarca 11/29/2013 - Anemia 03/10/2015 Chronic microcytic anemia. Past work up (+ direct darby, elevated Bili, reticulocyte index 2.7%, iron studies pending) most likely AIHA Plasma exchange done Wednesday 01/17 Transfused over the weekend Hb trending up (baseline 7.5) - Antiphospholipid antibody with hypercoagulable state ([facility]) 11/29/2016 Hx of APL syndrome c/b Multiple DVT s/p L Common and External Iliac Stenting + IVC Bifurcation Endograft; c/b PE s/p IVC Filter, R Hepatic V. Thrombosis, and Diffuse Alveolar Hemorrhage. On Warfarin and PLEX (Twice Weekly)? Plan: -Warfarin 5mg qday-holding for planned EGD on 01/11 d/t supra therapeutic INR -Cont. PO Prednisone 10mg MWFS and 5mg TTS -Pantoprazole for GI PPx of Above -Apharesis was supposed to be yesterday, will contact plasmapheresis team on recommendations - Antiphospholipid syndrome (HCC) - Catastrophic Antiphospholipid antibody syndrome 11/09/2013 - Cholelithiasis 01/11/2017 Likely cause of recent pancreatitis. Plan: Per general surgery, no acute surgical intervention at this time. Will await results of EGD. If active gastritis, favor outpatient cholecystectomy. If no active gastritis on EGD, plan for cholecystectomy this admission. - CKD (chronic kidney disease) stage 3, GFR 30-59 ml/min 07/06/2016 Baseline SCr 1.5-1.7 Plan: -renally dose medications -avoid nephrotoxic agents - DVT (deep venous thrombosis) ([facility]) - Elevated CA-125 11/30/2013 244 - Essential hypertension 10/08/2015 Stable on home medications Plan: -continue to monitor on home meds - 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 Bivalirudin to Warfarin bridging - HIT (heparin-induced thrombocytopenia) (HCC) - Nontoxic multinodular goiter - Obese - Obesity, Class III, BMI >= 40 (morbid obesity) E66.01 10/18/2016 - Peripheral neuropathy 04/14/2016 - Severe protein-calorie malnutrition (HCC) 12/29/2015 PAST SURGICAL HISTORY Procedure Laterality Date - PAST SURGICAL HISTORY OF 2012 IVC thrombectomy - PAST SURGICAL HISTORY OF 2012 b/l iliac v. 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 - PAST SURGICAL HISTORY OF Adenoidectomy - PICC LINE INSERT/CONSULT 11/29/2013 - PICC LINE INSERT/CONSULT 03/10/2015 - PICC LINE INSERT/CONSULT 02/20/2016 Current Facility-Administered Medications: ondansetron (PF) 4 mg injection (ZOFRAN) 4 mg INTRAVENOUS q 6 H PRN pantoprazole 40 mg injection (PROTONIX) 40 mg INTRAVENOUS DAILY (6 AM) 0.9% NaCl 10 mL 10 mL INTRAVENOUS q 12 H 0.9% NaCl 20 mL 20 mL INTRAVENOUS PRN 0.9% NaCl 10 mL 10 mL INTRAVENOUS q 12 H 0.9% NaCl 20 mL 20 mL INTRAVENOUS PRN HYDROmorphone WAITER/WAITRESS CABIN CLASS 0.5 mg/mL in NaCl 0.9% 100 mL INTRAVENOUS CONTINUOUS hydrocortisone sodium succinate 50 mg injection (Solu-CORTEF) 50 mg INTRAVENOUS ONCE HYDROmorphone 0.2 mg injection (DILAUDID) 0.2 mg INTRAVENOUS ONCE predniSONE (DELTASONE) tab(s) 80 mg 80 mg ORAL DAILY sulfamethoxazole-trimethoprim 800-160 mg 1 tablet (BACTRIM DS,SEPTRA DS) 1 tablet ORAL Allergies: Rhubarb; Heparin; Iv Contrast [Iodine]; Rituximab Social History Marital status: Spouse name: Years of education: Number of children: Occupational History 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 HEENT/Neck: No hearing/vision changes; no pain, masses, or swelling. No evidence of sores in the mouth. Respiratory: No cough, productive sputum, hemoptysis, chest pain, shortness of breath or wheezing. Cardiovascular: No palpitations, chest pain, shortness or breath, exertional dyspnea. Gastrointestinal: severe abdominal pain Genitourinary: No dysuria, nocturia, frequency, urgency, hematuria or incontinence. Musculoskeletal: No joint or bone pain: No limitation of motion. No problems with the gait. Neurological: No sensory or motor abnormalities; no headaches or dizziness. Dermatologic: No rash, skin lesions or itching. Psychiatric: No sleep disturbances, mood disorders, depression, etc. Hematologic: see HPI Lymphatic System: No new lymph gland enlargement or new lumps in the body. Endocrine: No heat or cold intolerance, diabetes or other abnormalities The rest of systems reviewed and essentially unremarkable. Physical Examination: General appearance: well appearing, alert, severe abdominal pain. Skin: skin color, texture, turgor normal, no rashes or lesions Head: normal Eyes: Anicteric sclera. Pupils equal round and reactive to light. Extraocular movements intact. Ears: external ears normal Nose/Sinuses: Negative Oropharynx: Lips, mucosa, and tongue normal, teeth and gums normal, oropharynx normal Neck: Supple, no adenopathy; thyroid symmetric, normal size Back: no pain to palpation over spine or costovertebral angles, motor and sensory appear to be normal Lungs: lungs clear to auscultation, no wheezing or rhonchi Heart: RRR without murmur, gallop, or rubs. Abdomen: soft, non-tender. Bowel sounds normal. No masses, organomegaly Extremities: No deformities, edema, or skin discoloration. Good capillary refill. Musculoskeletal: Muscular strength intact Peripheral pulses: Normal Neuro: Sensation grossly intact. Labs: Component Latest Ref Rng AND Units 10/22/2017 10/22/2017 10/23/2017 10/23/2017 4:12 AM 12:45 PM 6:30 AM 12:57 PM WBC 3.70 - 11.00 k/uL 9.05 18.78 (H) 17.22 (H) 17.69 (H) RBC 3.90 - 5.20 m/uL 2.71 (L) 3.03 (L) 1.75 (L) 2.80 (L) Hemoglobin 11.5 - 15.5 g/dL 7.5 (L) 8.3 (L) 4.8 (LL) 8.1 (L) Hematocrit 36.0 - 46.0 % 24.6 (L) 27.5 (L) 15.6 (L) 24.2 (L) MCV 80.0 - 100.0 fL 90.8 90.8 89.1 86.4 MCH 26.0 - 34.0 pG 27.7 27.4 27.4 28.9 MCHC 30.5 - 36.0 g/dL 30.5 30.2 (L) 30.8 33.5 RDW-CV 11.5 - 15.0 % 19.1 (H) 19.1 (H) 19.8 (H) 16.8 (H) Platelet Count 150 - 400 k/uL 163 223 187 130 (L) MPV 9.0 - 12.7 fL 11.8 12.2 10.9 10.4 Neut% % 89.0 Abs Neut (ANC) 1.45 - 7.50 k/uL 15.33 (H) Lymph% % 6.0 Abs Lymph 1.00 - 4.00 k/uL 1.03 [place]% % 3.0 Abs [place] <0.87 k/uL 0.52 Eosin% % 0.0 Abs Eosin <0.46 k/uL 0.00 Baso% % 0.0 Abs Baso <0.11 k/uL 0.00 ANC(includeSEG+BAND) k/uL 15.33 [place] % 1.0 Myelocyte % 1.0 Anisocytosis Present Left Shift Present Basophilic Stippling Occasional Ovalocytes Few Polychromasia Slight Platelet Estimate Platelet estimate adequate Diff Type Manual Diff Protein, Total 6.0 - 8.4 g/dL 4.3 (L) Albumin 3.5 - 5.0 g/dL 3.2 (L) Calcium 8.5 - 10.5 mg/dL 8.0 (L) Bilirubin, Total 0.0 - 1.5 mg/dL 0.4 Alkaline Phosphatase 40 - 150 U/L 34 (L) AST 7 - 40 U/L 14 Glucose 65 - 100 mg/dL 158 (H) BUN 8 - 25 mg/dL 63 (H) Creatinine 0.70 - 1.40 mg/dL 1.35 Sodium 132 - 148 mmol/L 139 Potassium 3.5 - 5.0 mmol/L 4.1 Chloride 98 - 110 mmol/L 97 (L) CO2 23 - 32 mmol/L 31 Anion Gap 9 - 18 mmol/L 11 ALT 0 - 45 U/L 9 eGFR- >60 57 (L) eGFR-All Other Races >60 . 47 (L) Absolute nRBC <0.01 k/uL 0.01 (H) 0.02 (H) Imaging Studies: Assessment: 1. 27 year old female with h/o catastrophic APS diagnosed 2013 complicated by PE/DVT and receiving plasmapheresis q2 weeks, Diffuse alveolar hemorrhage (on Prednisone/Cytoxan) now admitted with retroperitoneal bleed, severe anemia, left flank pain, now s/p embolization at LEFT L3 LUMBAR ARTERY. The bleeding is likely due to fondaparinux she received at [facility] recently and has been discontinued. The DAH is a feature of her APS and she will continue plasmapheresis q 2 weeks and prednisone 80 mg daily; a prednisone taper by 20 mg every four days (with maintenance of prednisone 5 mg daily) is recommended. I discussed the case with her academic support center director at [facility], Dr. Andujar. Sandra Morillo M.D. CASE MGT INIT Observed: 10/23/2017 Status: COMPLETED Source: [facility] 3:01 PM CLINIC OTHER CAMPUS REPOSITORY HNO ID: [id number] Author: Tarah Johnson (Sw) Service: Care Management Author Type: Toolmaker Helper Type: Care Mgt Initial Assessment Filed: 10/23/2017 3:33 PM Note Text: CARE MANAGEMENT: ASSESSMENT AND DISCHARGE PLAN SERVICE DATE: 10/23/2017 SERVICE TIME: 3:01 PM PRIMARY CARE PHYSICIAN: PEYTON ROGERS MD ADMISSION STATUS: Inpatient Needs Prior to Discharge: To Be Determined MEDICAL: Patient/Cyanide Case Hardener Stated Goals: To have reduction in symptoms To improve my functional status To return home to life as it was Health Insurance: [employer] Medicare and Medicaid Health Issues Impacting Discharge Plan: Anti-phospholipid antibody syndrome s/p L RP angiogram and L3 embolization Last Admission Date: Previous admit date: 10/13/2017 Is this Within the Past 30 days? Yes Is This a Planned Readmission? No: Recurrent symptoms of underlying disease Followed Up with Appointment Prior to Admission: Patient scheduled, but readmitted prior Where Did the Patient Come From? Home Intervention Taken to Avoid Future Readmission? To be determined Advance Directive: Health Literacy: 1. How often do you need to have someone help you when you read instructions, pamphlets, or other written material from your doctor or pharmacy? Never - 1 2. How confident are you filling out medical forms by yourself? Extremely - 1 If Patient scores > 3 on either question, the following interventions were put into place: Patient did not score > 3 FUNCTIONAL AND COGNITIVE/BEHAVIORAL PRIOR TO ADMISSION: Baseline Mental Status: Alert AND Oriented, Person, Place , Time and Situation Functional Status: Independent Does Patient Currently Receive Any Community Services or Home Care? None Equipment Prior to Admission: Oxygen 2 liters per minute- through [facility] Has the Patient Been in a Jail Facility in the Past 30 days? No SOCIAL: Living Arrangement: Home Lives With: Spouse Financial Resources: Disabled Primary Contact: Extended Emergency Contact Information Primary Emergency Contact: Morteza Cannon Relation: Spouse Supportive: Yes Other Important Patient Contacts: Family: Name: Morgan Aiken (father) Caregiver Assessment: Caregiver is ready, willing and able to meet the patient's needs as recommended by the inter-professional team? No Caregiver Needed Patient's transition needs and plan for meeting these needs: To be determined Does the patient have an acute stroke diagnosis, or has the patient had a stroke during this admission? No Medication Adherence: I am convinced of the importance of my prescription medication: Agree completely - 0 I worry that my prescription medication will do more harm than good to me Disagree completely - 0 I feel financially burdened by my [id number] expenses for my prescription medication: Disagree completely - 0 Patient is categorized as low risk < 2 Are you interested in bedside delivery of your medications? No Food Concerns: In the Last Month, Have You had Trouble Getting Food? No trouble getting food During the Last Month, Have You Worried Whether Your Food Would Run Out Before You Had Enough Money to Buy More? No Is the Patient Psychosocially Complex? No ASSESSMENT AND PLAN: Medical Needs: 2 or more chronic diseases Psychosocial Needs: None FREEDOM OF CHOICE EXPLAINED: N/A POTENTIAL TRANSITION PLANS Home To Be Determined The patient is currently in the Intensive Care Unit. She was just discharged home from [facility] yesterday. The patient lives with her and was independent prior to admission. She has home oxygen provided through [facility]. No skilled needs are anticipated but SW remains available if any needs are identified. SIGNATURE: ROBBI Rollins PATIENT NAME: Paloma Cannon DATE: October 23, 2017 TIME: 3:01 PM PAGER/CONTACT #: [phone] PLAN OF CARE Observed: 10/23/2017 Status: COMPLETED Source: [facility] 2:20 PM [facility] OTHER CAMPUS REPOSITORY HNO ID: [id number] Author: Vlad Soto (Pharmacist) Service: Pharmacy Author Type: Pharmacist Type: Plan of Care Filed: 10/23/2017 2:22 PM Note Text: MEDICATION HISTORY AND MEDICATION RECONCILIATION Patient Name:Karyna Cannon : 1990 Source of history:[facility] records: discharge note on 10/22/17 Medication Nonadherence Identified: No barriers noted The above information represents the best possible medication history: Yes Reconciliation completed? Yes All WARP DYEING VAT TENDER medications addressed by LIP -Amlodipine; zyrtec; fondaparinux and gabapentin were held. Additional comments: N/A Allergies: ALLERGIES Allergen Reactions - Rhubarb Rash, Hives - Heparin Other: See Comments Per patient history of HIT - was on angiomax however then took l fondaparinux for bridging to coumadin. - Iv Contrast [Iodine] Other: See Comments shuts kidneys down per patient - Rituximab Other: See Comments Elevated cardiac enzymes Preferred Pharmacy: [facility] [place] [facility] pharmacy Current WARP DYEING VAT TENDER Medications: Prior to Admission medications as of 10/23/17 0602 Medication Sig Last Dose Taking predniSONE (DELTASONE) 20 mg tablet Take 4 tablets by mouth once daily for 8 days. COMPOUNDED PRESCRIPTION Outpatient physical therapy Please call [phone] to make an appointment fondaparinux (ARIXTRA) 2.5 mg/0.5 mL syrg Inject 1.5 mL subcutaneously q 24 HR for 10 days. Short term medication to cover while warfarin was on hold amLODIPine (NORVASC) 5 mg tablet Take 5 mg by mouth twice daily. Hold for SBP <120 ondansetron (ZOFRAN, HYDROCHLORIDE,) 8 mg tablet Take 8 mg by mouth every 8 hours as needed for Nausea/Vomiting. pantoprazole DR (PROTONIX) 40 mg tablet Take 40 mg by mouth daily at bedtime. cetirizine (ZYRTEC) 10 mg tablet Take 10 mg by mouth twice daily. gabapentin (NEURONTIN) 100 mg capsule Take 400mg in the morning Take 300 mg in the afternoon Take 300mg in the evening Patient may change dose based on pain torsemide (DEMADEX) 20 mg tablet Take 20 mg by mouth once daily as needed (takes 20-60 mg as needed for chronic edema). sulfamethoxazole-trimethoprim (BACTRIM DS) 800-160 mg per tablet Take 1 tablet by mouth every Monday,Monday,Monday. fluticasone (FLONASE) 50 mcg/actuation nasal spray Use 1-2 Sprays in each nostril once daily as needed for Cold/Allergy Symptoms (starting in allergy season). senna 8.6 mg tab Take 1 tablet by mouth twice daily as needed. Vlad Soto, Pharmacist October 23, 2017 2:20 PM CBC Collected: 10/23/2017 Status: F Source: [facility] 12:57 PM CLINIC OTHER CAMPUS REPOSITORY TYPE CODE TESTS RESULT OUT OF REFERENCE UNITS RANGE LAB WBC 3.70-11.00 k/uL WBC High 17.69 LAB RBC 3.90-5.20 m/uL Low RBC 2.80 LAB HGB 11.5-15.5 g/dL Low Hemoglobin 8.1 LAB HCT 36.0-46.0 % Low Hematocrit 24.2 LAB MCV 80.0-100.0 fL MCV 86.4 LAB MCH 26.0-34.0 pG MCH 28.9 LAB MCHC 30.5-36.0 g/dL MCHC 33.5 LAB RDWCV 11.5-15.0 % RDW-CV High 16.8 LAB PLTCT 150-400 k/uL Low Platelet Count 130 LAB MPV 9.0-12.7 fL MPV 10.4 Performed By: #### CBC #### [id number] [place] [address] NURSING PROG Observed: 10/23/2017 Status: COMPLETED Source: [facility] 12:35 PM CLINIC OTHER CAMPUS REPOSITORY HNO ID: [id number] Author: Mary Burton (Rn) JEFF Marin Service: PICC Team Author Type: Registered Nurse Type: Nursing Progress Note Filed: 10/23/2017 12:35 PM Note Text: PICC/VASCULAR ACCESS PROGRESS NOTE SERVICE DATE: 10/23/2017 SERVICE TIME: [address] peripheral iv. #22 gauge 1 3/4 inch iv inserted into right antecubital under ultrasound guidance. Brisk blood return noted. Flushed with 10 cc of normal saline without complication. SIGNATURE: Mary Marin RN PATIENT NAME: Paloma Cannon DATE: October 23, 2017 TIME: 12:35 PM PAGER/CONTACT #: [phone] IR ANGIOGRAPHY SPINAL Observed: 10/23/2017 Status: F Source: [facility] 12:00 PM CLINIC OTHER CAMPUS REPOSITORY * * *Final Report* * * DATE OF EXAM: Oct 23 2017 12:00PM [facility] 0800 - IR ANGIOGRAPHY SPINAL SELECT / PROCEDURE REASON: retroperitoneal bleed * * * * Physician Interpretation * * * * PROCEDURE: LEFT ILIAC, LUMBAR, RENAL ARTERY ANGIOGRAMS AND LUMBAR ARTERY EMBOLIZATION. 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 Patient is on anticoagulation. Patient was recently discharged from hospital, developed acute onset left-sided flank pain. Patient returned to the hospital, noncontrast CT performed at outside institution demonstrated 24 cm left retroperitoneal hematoma (images were not available for comparison or interpretation at time of procedure). Clinical team requests angiographic evaluation for acute blood loss anemia, tachycardia, and pallor. CONSENT: Risks, benefits, treatment options, potential complications and personnel to be involved were discussed (including the risks of radiation exposure, contrast and anesthesia administration, and any equipment needed for the procedure to ensure best possible outcome) with the patient and all questions were answered and consent was obtained prior to procedure. MEDICATION RECONCILIATION: The patient's medications and allergies were reviewed in the electronic medical record and reconciled to the proposed procedure/treatment. DAXA-PROCEDURE DISCUSSION: The appropriate elements of the pre-procedure discussion, safety check list and sign-out were performed. TIME OUT: A time out was performed immediately prior to procedure start with the nursing, and interventional team, correctly identifying the name, date of , procedure, anatomy (including marking of site and side if applicable), patient position, procedure consent form, relevant diagnostic and radiology test results, antibiotic administration if applicable, safety precautions, and procedure-specific equipment needs. Start of procedure (Time out): 1007 End of procedure (Sign out): 1200 Patient position: Supine Anesthesia: After establishing pulse oximetry, BP and EKG monitoring by the Radiology nurse, moderate sedation with Versed and Fentanyl was administered. Intra-service time (monitoring for moderate sedation): 122 minutes Patient monitoring: I personally supervised and directed an independent trained observer who assisted in monitoring the patient?s level of consciousness and physiological status throughout the procedure. Local anesthesia: 2 % lidocaine ANTIBIOTICS: None Antibiotic infusion start time: N/A CONTRAST DOSE: 90 cc of OMNIPAQUE 300 was injected into the arterial system during the procedure. 115 cc of OMNIPAQUE 350 was injected into the arterial system during the procedure. IMAGE GUIDANCE: Fluoroscopic and sonographic guidance was used. Ultrasound demonstrated patency of the target artery without filling defects. Access was obtained under direct sonographic visualization. A sonographic image of the vessel was obtained and placed into the permanent archive for documentation. FLUOROSCOPIC RADIATION SUMMARY: Plane A, Air Kerma: 4295.0 mGy Dose Area Product (DAP): 140197.0 mGy*cm2 Fluoro Time: 20:00 min:sec Radiation dose exceed 5 Gy: No If radiation dose exceeded 5 Gy, was counseling and instructional brochure provided:N/A ACCESS: Right common femoral artery ACCESS HEMOSTASIS: Angioseal. TECHNIQUE: The patient was prepped and draped using all elements of maximal sterile barrier technique (cap, mask, sterile gown, sterile gloves, a large sterile sheet, hand hygiene and cutaneous antisepsis), sterile ultrasound gel and sterile ultrasound probe covers. Access was obtained into the right common femoral artery using a 21-gauge micropuncture set under ultrasound guidance. Access was obtained into the right common femoral artery using a 21-gauge micropuncture set under ultrasound guidance. Access was exchanged for a 5 New Zealander sheath. 5 [place] Ze[place]ander pigtail catheter was placed in the cephalad abdominal aorta, aortogram was performed. Next, combination 5 [place] Ze[place]ander Omni Flush catheter straight Bentson wire was used to traverse the aortic bifurcation. Access was exchanged for a 6 [place]ander Bental sheath. Left common iliac, external iliac, and left common femoral artery angiograms were performed. Access was then exchanged for a 5 [place]ander C2 Cobra catheter over a Bentson wire. The left-sided renal artery, T12 intercostal artery, and L1, L2, L3, and L4 lumbar arteries were selected individually and angiograms were performed. RESULT: Angiograms of the left common, external iliac and left common femoral artery demonstrates rapid opacification of the right common femoral vein, distal external iliac vein stent appears patent. Also seen are multiple body wall venous collaterals that opacify with arterial injection. 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 This fistula overlies approximately the region of the greater trochanter. Given its location across the joint, it was determined this fistula was not amenable to endovascular stenting. Angiograms of the left renal artery, left L1, L2 angiograms were unremarkable. DSA of the left L3 lumbar artery demonstrates multiple foci of extravasation, including a large area of pooling in the left lower quadrant from one of the inferior second order branches of the L3 lumbar artery. L4 angiogram was unremarkable. INTERVENTION: The Cobra catheter was then positioned at the ostium of the left L3 lumbar artery. 2.4 [place] Zealander microcatheter system was then used to select a second order branch of the L3 artery. Gelfoam embolization of this branch was performed until stasis was achieved. Next, multiple 2 mm to 3 mm diameter 018 Concerto coils were then placed. Repeat DSA from the proximal lumbar artery demonstrated no further extravasation. The patient tolerated the procedure well. There were no significant complications and no other complications during the procedure. CONCLUSION: The patient was comfortable and was returned to the ICU in stable condition. Estimated Blood Loss: Minimal Number and Type of Removed Specimens: 0: ATTENDING RADIOLOGIST: Maximino Gr M.D. PROFESSOR OF CHEMICAL ENGINEERING: None The procedure was performed by the: attending radiologist, without an child nutrition assistant. The attending radiologist performed the following procedural activities: Entire procedure. IMPRESSION: MULTIPLE FOCI OF ACTIVE EXTRAVASATION FROM BRANCHES OF THE LEFT L3 LUMBAR ARTERY. SUCCESSFUL GELFOAM/COIL EMBOLIZATION OF THE MIDPORTION OF THIS ARTERY. INCIDENTALLY DISCOVERED DISTAL LEFT COMMON FEMORAL ARTERY TO COMMON FEMORAL VEIN ARTERIOVENOUS FISTULA. GIVEN ITS LOCATION ACROSS THE JOINT, NOT AMENABLE TO ENDOVASCULAR STENTING. RECOMMEND SURGICAL EVALUATION. Practice Support Specialist: MURTAZA Transcribe Date/Time: Oct 23 2017 2:19P Dictated by : SUNSHINE GR MD This examination was interpreted and the report reviewed and electronically signed by: SUNSHINE GR MD on Oct 23 2017 2:35PM EST IR ANGIOGRAPHY SPINAL Observed: 10/23/2017 Status: F Source: [facility] 12:00 PM CLINIC OTHER CAMPUS REPOSITORY * * *Final Report* * * DATE OF EXAM: Oct 23 2017 12:00PM [facility] 0800 - IR ANGIOGRAPHY SPINAL SELECT / PROCEDURE REASON: retroperitoneal bleed * * * * Physician Interpretation * * * * PROCEDURE: LEFT ILIAC, LUMBAR, RENAL ARTERY ANGIOGRAMS AND LUMBAR ARTERY EMBOLIZATION. 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 Patient is on anticoagulation. Patient was recently discharged from hospital, developed acute onset left-sided flank pain. Patient returned to the hospital, noncontrast CT performed at outside institution demonstrated 24 cm left retroperitoneal hematoma (images were not available for comparison or interpretation at time of procedure). Clinical team requests angiographic evaluation for acute blood loss anemia, tachycardia, and pallor. CONSENT: Risks, benefits, treatment options, potential complications and personnel to be involved were discussed (including the risks of radiation exposure, contrast and anesthesia administration, and any equipment needed for the procedure to ensure best possible outcome) with the patient and all questions were answered and consent was obtained prior to procedure. MEDICATION RECONCILIATION: The patient's medications and allergies were reviewed in the electronic medical record and reconciled to the proposed procedure/treatment. DAXA-PROCEDURE DISCUSSION: The appropriate elements of the pre-procedure discussion, safety check list and sign-out were performed. TIME OUT: A time out was performed immediately prior to procedure start with the nursing, and interventional team, correctly identifying the name, date of , procedure, anatomy (including marking of site and side if applicable), patient position, procedure consent form, relevant diagnostic and radiology test results, antibiotic administration if applicable, safety precautions, and procedure-specific equipment needs. Start of procedure (Time out): 1007 End of procedure (Sign out): 1200 Patient position: Supine Anesthesia: After establishing pulse oximetry, BP and EKG monitoring by the Radiology nurse, moderate sedation with Versed and Fentanyl was administered. Intra-service time (monitoring for moderate sedation): 122 minutes Patient monitoring: I personally supervised and directed an independent trained observer who assisted in monitoring the patient?s level of consciousness and physiological status throughout the procedure. Local anesthesia: 2 % lidocaine ANTIBIOTICS: None Antibiotic infusion start time: N/A CONTRAST DOSE: 90 cc of OMNIPAQUE 300 was injected into the arterial system during the procedure. 115 cc of OMNIPAQUE 350 was injected into the arterial system during the procedure. IMAGE GUIDANCE: Fluoroscopic and sonographic guidance was used. Ultrasound demonstrated patency of the target artery without filling defects. Access was obtained under direct sonographic visualization. A sonographic image of the vessel was obtained and placed into the permanent archive for documentation. FLUOROSCOPIC RADIATION SUMMARY: Plane A, Air Kerma: 4295.0 mGy Dose Area Product (DAP): 110320.0 mGy*cm2 Fluoro Time: 20:00 min:sec Radiation dose exceed 5 Gy: No If radiation dose exceeded 5 Gy, was counseling and instructional brochure provided:N/A ACCESS: Right common femoral artery ACCESS HEMOSTASIS: Angioseal. TECHNIQUE: The patient was prepped and draped using all elements of maximal sterile barrier technique (cap, mask, sterile gown, sterile gloves, a large sterile sheet, hand hygiene and cutaneous antisepsis), sterile ultrasound gel and sterile ultrasound probe covers. Access was obtained into the right common femoral artery using a 21-gauge micropuncture set under ultrasound guidance. Access was obtained into the right common femoral artery using a 21-gauge micropuncture set under ultrasound guidance. Access was exchanged for a 5 [place] Ze[place]ander sheath. 5 [place]ander pigtail catheter was placed in the cephalad abdominal aorta, aortogram was performed. Next, combination 5 [place]ander Omni Flush catheter straight Bentson wire was used to traverse the aortic bifurcation. Access was exchanged for a 6 [place] Bental sheath. Left common iliac, external iliac, and left common femoral artery angiograms were performed. Access was then exchanged for a 5 [place] C2 Cobra catheter over a Bentson wire. The left-sided renal artery, T12 intercostal artery, and L1, L2, L3, and L4 lumbar arteries were selected individually and angiograms were performed. RESULT: Angiograms of the left common, external iliac and left common femoral artery demonstrates rapid opacification of the right common femoral vein, distal external iliac vein stent appears patent. Also seen are multiple body wall venous collaterals that opacify with arterial injection. 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 This fistula overlies approximately the region of the greater trochanter. Given its location across the joint, it was determined this fistula was not amenable to endovascular stenting. Angiograms of the left renal artery, left L1, L2 angiograms were unremarkable. DSA of the left L3 lumbar artery demonstrates multiple foci of extravasation, including a large area of pooling in the left lower quadrant from one of the inferior second order branches of the L3 lumbar artery. L4 angiogram was unremarkable. INTERVENTION: The Cobra catheter was then positioned at the ostium of the left L3 lumbar artery. 2.4 [place] microcatheter system was then used to select a second order branch of the L3 artery. Gelfoam embolization of this branch was performed until stasis was achieved. Next, multiple 2 mm to 3 mm diameter 018 Concerto coils were then placed. Repeat DSA from the proximal lumbar artery demonstrated no further extravasation. The patient tolerated the procedure well. There were no significant complications and no other complications during the procedure. CONCLUSION: The patient was comfortable and was returned to the ICU in stable condition. Estimated Blood Loss: Minimal Number and Type of Removed Specimens: 0: ATTENDING RADIOLOGIST: Maximino Gr M.D. PROFESSOR OF CHEMICAL ENGINEERING: None The procedure was performed by the: attending radiologist, without an child nutrition assistant. The attending radiologist performed the following procedural activities: Entire procedure. IMPRESSION: MULTIPLE FOCI OF ACTIVE EXTRAVASATION FROM BRANCHES OF THE LEFT L3 LUMBAR ARTERY. SUCCESSFUL GELFOAM/COIL EMBOLIZATION OF THE MIDPORTION OF THIS ARTERY. INCIDENTALLY DISCOVERED DISTAL LEFT COMMON FEMORAL ARTERY TO COMMON FEMORAL VEIN ARTERIOVENOUS FISTULA. GIVEN ITS LOCATION ACROSS THE JOINT, NOT AMENABLE TO ENDOVASCULAR STENTING. RECOMMEND SURGICAL EVALUATION. Practice Support Specialist: MURTAZA Transcribe Date/Time: Oct 23 2017 2:19P Dictated by : SUNSHINE GR MD This examination was interpreted and the report reviewed and electronically signed by: SUNSHINE GR MD on Oct 23 2017 2:35PM EST IR ANGIOGRAPHY SPINAL Observed: 10/23/2017 Status: F Source: [facility] 12:00 PM CLINIC OTHER CAMPUS REPOSITORY * * *Final Report* * * DATE OF EXAM: Oct 23 2017 12:00PM [facility] 0800 - IR ANGIOGRAPHY SPINAL SELECT / PROCEDURE REASON: retroperitoneal bleed * * * * Physician Interpretation * * * * PROCEDURE: LEFT ILIAC, LUMBAR, RENAL ARTERY ANGIOGRAMS AND LUMBAR ARTERY EMBOLIZATION. 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 Patient is on anticoagulation. Patient was recently discharged from hospital, developed acute onset left-sided flank pain. Patient returned to the hospital, noncontrast CT performed at outside institution demonstrated 24 cm left retroperitoneal hematoma (images were not available for comparison or interpretation at time of procedure). Clinical team requests angiographic evaluation for acute blood loss anemia, tachycardia, and pallor. CONSENT: Risks, benefits, treatment options, potential complications and personnel to be involved were discussed (including the risks of radiation exposure, contrast and anesthesia administration, and any equipment needed for the procedure to ensure best possible outcome) with the patient and all questions were answered and consent was obtained prior to procedure. MEDICATION RECONCILIATION: The patient's medications and allergies were reviewed in the electronic medical record and reconciled to the proposed procedure/treatment. DAXA-PROCEDURE DISCUSSION: The appropriate elements of the pre-procedure discussion, safety check list and sign-out were performed. TIME OUT: A time out was performed immediately prior to procedure start with the nursing, and interventional team, correctly identifying the name, date of , procedure, anatomy (including marking of site and side if applicable), patient position, procedure consent form, relevant diagnostic and radiology test results, antibiotic administration if applicable, safety precautions, and procedure-specific equipment needs. Start of procedure (Time out): 1007 End of procedure (Sign out): 1200 Patient position: Supine Anesthesia: After establishing pulse oximetry, BP and EKG monitoring by the Radiology nurse, moderate sedation with Versed and Fentanyl was administered. Intra-service time (monitoring for moderate sedation): 122 minutes Patient monitoring: I personally supervised and directed an independent trained observer who assisted in monitoring the patient?s level of consciousness and physiological status throughout the procedure. Local anesthesia: 2 % lidocaine ANTIBIOTICS: None Antibiotic infusion start time: N/A CONTRAST DOSE: 90 cc of OMNIPAQUE 300 was injected into the arterial system during the procedure. 115 cc of OMNIPAQUE 350 was injected into the arterial system during the procedure. IMAGE GUIDANCE: Fluoroscopic and sonographic guidance was used. Ultrasound demonstrated patency of the target artery without filling defects. Access was obtained under direct sonographic visualization. A sonographic image of the vessel was obtained and placed into the permanent archive for documentation. FLUOROSCOPIC RADIATION SUMMARY: Plane A, Air Kerma: 4295.0 mGy Dose Area Product (DAP): 152903.0 mGy*cm2 Fluoro Time: 20:00 min:sec Radiation dose exceed 5 Gy: No If radiation dose exceeded 5 Gy, was counseling and instructional brochure provided:N/A ACCESS: Right common femoral artery ACCESS HEMOSTASIS: Angioseal. TECHNIQUE: The patient was prepped and draped using all elements of maximal sterile barrier technique (cap, mask, sterile gown, sterile gloves, a large sterile sheet, hand hygiene and cutaneous antisepsis), sterile ultrasound gel and sterile ultrasound probe covers. Access was obtained into the right common femoral artery using a 21-gauge micropuncture set under ultrasound guidance. Access was obtained into the right common femoral artery using a 21-gauge micropuncture set under ultrasound guidance. Access was exchanged for a 5 [place] Ze[place]ander sheath. 5 [place] pigtail catheter was placed in the cephalad abdominal aorta, aortogram was performed. Next, combination 5 [place] Omni Flush catheter straight Bentson wire was used to traverse the aortic bifurcation. Access was exchanged for a 6 [place] Bental sheath. Left common iliac, external iliac, and left common femoral artery angiograms were performed. Access was then exchanged for a 5 [place] C2 Cobra catheter over a Bentson wire. The left-sided renal artery, T12 intercostal artery, and L1, L2, L3, and L4 lumbar arteries were selected individually and angiograms were performed. RESULT: Angiograms of the left common, external iliac and left common femoral artery demonstrates rapid opacification of the right common femoral vein, distal external iliac vein stent appears patent. Also seen are multiple body wall venous collaterals that opacify with arterial injection. 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 This fistula overlies approximately the region of the greater trochanter. Given its location across the joint, it was determined this fistula was not amenable to endovascular stenting. Angiograms of the left renal artery, left L1, L2 angiograms were unremarkable. DSA of the left L3 lumbar artery demonstrates multiple foci of extravasation, including a large area of pooling in the left lower quadrant from one of the inferior second order branches of the L3 lumbar artery. L4 angiogram was unremarkable. INTERVENTION: The Cobra catheter was then positioned at the ostium of the left L3 lumbar artery. 2.4 [place] microcatheter system was then used to select a second order branch of the L3 artery. Gelfoam embolization of this branch was performed until stasis was achieved. Next, multiple 2 mm to 3 mm diameter 018 Concerto coils were then placed. Repeat DSA from the proximal lumbar artery demonstrated no further extravasation. The patient tolerated the procedure well. There were no significant complications and no other complications during the procedure. CONCLUSION: The patient was comfortable and was returned to the ICU in stable condition. Estimated Blood Loss: Minimal Number and Type of Removed Specimens: 0: ATTENDING RADIOLOGIST: Maximino Gr M.D. PROFESSOR OF CHEMICAL ENGINEERING: None The procedure was performed by the: attending radiologist, without an child nutrition assistant. The attending radiologist performed the following procedural activities: Entire procedure. IMPRESSION: MULTIPLE FOCI OF ACTIVE EXTRAVASATION FROM BRANCHES OF THE LEFT L3 LUMBAR ARTERY. SUCCESSFUL GELFOAM/COIL EMBOLIZATION OF THE MIDPORTION OF THIS ARTERY. INCIDENTALLY DISCOVERED DISTAL LEFT COMMON FEMORAL ARTERY TO COMMON FEMORAL VEIN ARTERIOVENOUS FISTULA. GIVEN ITS LOCATION ACROSS THE JOINT, NOT AMENABLE TO ENDOVASCULAR STENTING. RECOMMEND SURGICAL EVALUATION. Practice Support Specialist: MURTAZA Transcribe Date/Time: Oct 23 2017 2:19P Dictated by : SUNSHINE GR MD This examination was interpreted and the report reviewed and electronically signed by: SUNSHINE GR MD on Oct 23 2017 2:35PM EST IR ANGIOGRAPHY SPINAL Observed: 10/23/2017 Status: F Source: [facility] 12:00 PM CLINIC OTHER CAMPUS REPOSITORY * * *Final Report* * * DATE OF EXAM: Oct 23 2017 12:00PM [facility] 0800 - IR ANGIOGRAPHY SPINAL SELECT / PROCEDURE REASON: retroperitoneal bleed * * * * Physician Interpretation * * * * PROCEDURE: LEFT ILIAC, LUMBAR, RENAL ARTERY ANGIOGRAMS AND LUMBAR ARTERY EMBOLIZATION. 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 Patient is on anticoagulation. Patient was recently discharged from hospital, developed acute onset left-sided flank pain. Patient returned to the hospital, noncontrast CT performed at outside institution demonstrated 24 cm left retroperitoneal hematoma (images were not available for comparison or interpretation at time of procedure). Clinical team requests angiographic evaluation for acute blood loss anemia, tachycardia, and pallor. CONSENT: Risks, benefits, treatment options, potential complications and personnel to be involved were discussed (including the risks of radiation exposure, contrast and anesthesia administration, and any equipment needed for the procedure to ensure best possible outcome) with the patient and all questions were answered and consent was obtained prior to procedure. MEDICATION RECONCILIATION: The patient's medications and allergies were reviewed in the electronic medical record and reconciled to the proposed procedure/treatment. DAXA-PROCEDURE DISCUSSION: The appropriate elements of the pre-procedure discussion, safety check list and sign-out were performed. TIME OUT: A time out was performed immediately prior to procedure start with the nursing, and interventional team, correctly identifying the name, date of , procedure, anatomy (including marking of site and side if applicable), patient position, procedure consent form, relevant diagnostic and radiology test results, antibiotic administration if applicable, safety precautions, and procedure-specific equipment needs. Start of procedure (Time out): 1007 End of procedure (Sign out): 1200 Patient position: Supine Anesthesia: After establishing pulse oximetry, BP and EKG monitoring by the Radiology nurse, moderate sedation with Versed and Fentanyl was administered. Intra-service time (monitoring for moderate sedation): 122 minutes Patient monitoring: I personally supervised and directed an independent trained observer who assisted in monitoring the patient?s level of consciousness and physiological status throughout the procedure. Local anesthesia: 2 % lidocaine ANTIBIOTICS: None Antibiotic infusion start time: N/A CONTRAST DOSE: 90 cc of OMNIPAQUE 300 was injected into the arterial system during the procedure. 115 cc of OMNIPAQUE 350 was injected into the arterial system during the procedure. IMAGE GUIDANCE: Fluoroscopic and sonographic guidance was used. Ultrasound demonstrated patency of the target artery without filling defects. Access was obtained under direct sonographic visualization. A sonographic image of the vessel was obtained and placed into the permanent archive for documentation. FLUOROSCOPIC RADIATION SUMMARY: Plane A, Air Kerma: 4295.0 mGy Dose Area Product (DAP): 619510.0 mGy*cm2 Fluoro Time: 20:00 min:sec Radiation dose exceed 5 Gy: No If radiation dose exceeded 5 Gy, was counseling and instructional brochure provided:N/A ACCESS: Right common femoral artery ACCESS HEMOSTASIS: Angioseal. TECHNIQUE: The patient was prepped and draped using all elements of maximal sterile barrier technique (cap, mask, sterile gown, sterile gloves, a large sterile sheet, hand hygiene and cutaneous antisepsis), sterile ultrasound gel and sterile ultrasound probe covers. Access was obtained into the right common femoral artery using a 21-gauge micropuncture set under ultrasound guidance. Access was obtained into the right common femoral artery using a 21-gauge micropuncture set under ultrasound guidance. Access was exchanged for a 5 [place]ander sheath. 5 [place] pigtail catheter was placed in the cephalad abdominal aorta, aortogram was performed. Next, combination 5 [place] Omni Flush catheter straight Bentson wire was used to traverse the aortic bifurcation. Access was exchanged for a 6 [place] Bental sheath. Left common iliac, external iliac, and left common femoral artery angiograms were performed. Access was then exchanged for a 5 [place] C2 Cobra catheter over a Bentson wire. The left-sided renal artery, T12 intercostal artery, and L1, L2, L3, and L4 lumbar arteries were selected individually and angiograms were performed. RESULT: Angiograms of the left common, external iliac and left common femoral artery demonstrates rapid opacification of the right common femoral vein, distal external iliac vein stent appears patent. Also seen are multiple body wall venous collaterals that opacify with arterial injection. 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 This fistula overlies approximately the region of the greater trochanter. Given its location across the joint, it was determined this fistula was not amenable to endovascular stenting. Angiograms of the left renal artery, left L1, L2 angiograms were unremarkable. DSA of the left L3 lumbar artery demonstrates multiple foci of extravasation, including a large area of pooling in the left lower quadrant from one of the inferior second order branches of the L3 lumbar artery. L4 angiogram was unremarkable. INTERVENTION: The Cobra catheter was then positioned at the ostium of the left L3 lumbar artery. 2.4 [place] microcatheter system was then used to select a second order branch of the L3 artery. Gelfoam embolization of this branch was performed until stasis was achieved. Next, multiple 2 mm to 3 mm diameter 018 Concerto coils were then placed. Repeat DSA from the proximal lumbar artery demonstrated no further extravasation. The patient tolerated the procedure well. There were no significant complications and no other complications during the procedure. CONCLUSION: The patient was comfortable and was returned to the ICU in stable condition. Estimated Blood Loss: Minimal Number and Type of Removed Specimens: 0: ATTENDING RADIOLOGIST: Maximino rG M.D. PROFESSOR OF CHEMICAL ENGINEERING: None The procedure was performed by the: attending radiologist, without an child nutrition assistant. The attending radiologist performed the following procedural activities: Entire procedure. IMPRESSION: MULTIPLE FOCI OF ACTIVE EXTRAVASATION FROM BRANCHES OF THE LEFT L3 LUMBAR ARTERY. SUCCESSFUL GELFOAM/COIL EMBOLIZATION OF THE MIDPORTION OF THIS ARTERY. INCIDENTALLY DISCOVERED DISTAL LEFT COMMON FEMORAL ARTERY TO COMMON FEMORAL VEIN ARTERIOVENOUS FISTULA. GIVEN ITS LOCATION ACROSS THE JOINT, NOT AMENABLE TO ENDOVASCULAR STENTING. RECOMMEND SURGICAL EVALUATION. Practice Support Specialist: MURTAZA Transcribe Date/Time: Oct 23 2017 2:19P Dictated by : SUNSHINE GR MD This examination was interpreted and the report reviewed and electronically signed by: SUNSHINE GR MD on Oct 23 2017 2:35PM EST IR ILIAC ANGIO Observed: 10/23/2017 Status: F Source: [facility] 12:00 PM CLINIC OTHER CAMPUS REPOSITORY * * *Final Report* * * DATE OF EXAM: Oct 23 2017 12:00PM [facility] 7565 - IR ILIAC ANGIO / PROCEDURE REASON: retroperitoneal bleed * * * * Physician Interpretation * * * * PROCEDURE: LEFT ILIAC, LUMBAR, RENAL ARTERY ANGIOGRAMS AND LUMBAR ARTERY EMBOLIZATION. 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 Patient is on anticoagulation. Patient was recently discharged from hospital, developed acute onset left-sided flank pain. Patient returned to the hospital, noncontrast CT performed at outside institution demonstrated 24 cm left retroperitoneal hematoma (images were not available for comparison or interpretation at time of procedure). Clinical team requests angiographic evaluation for acute blood loss anemia, tachycardia, and pallor. CONSENT: Risks, benefits, treatment options, potential complications and personnel to be involved were discussed (including the risks of radiation exposure, contrast and anesthesia administration, and any equipment needed for the procedure to ensure best possible outcome) with the patient and all questions were answered and consent was obtained prior to procedure. MEDICATION RECONCILIATION: The patient's medications and allergies were reviewed in the electronic medical record and reconciled to the proposed procedure/treatment. DAXA-PROCEDURE DISCUSSION: The appropriate elements of the pre-procedure discussion, safety check list and sign-out were performed. TIME OUT: A time out was performed immediately prior to procedure start with the nursing, and interventional team, correctly identifying the name, date of , procedure, anatomy (including marking of site and side if applicable), patient position, procedure consent form, relevant diagnostic and radiology test results, antibiotic administration if applicable, safety precautions, and procedure-specific equipment needs. Start of procedure (Time out): 1007 End of procedure (Sign out): 1200 Patient position: Supine Anesthesia: After establishing pulse oximetry, BP and EKG monitoring by the Radiology nurse, moderate sedation with Versed and Fentanyl was administered. Intra-service time (monitoring for moderate sedation): 122 minutes Patient monitoring: I personally supervised and directed an independent trained observer who assisted in monitoring the patient?s level of consciousness and physiological status throughout the procedure. Local anesthesia: 2 % lidocaine ANTIBIOTICS: None Antibiotic infusion start time: N/A CONTRAST DOSE: 90 cc of OMNIPAQUE 300 was injected into the arterial system during the procedure. 115 cc of OMNIPAQUE 350 was injected into the arterial system during the procedure. IMAGE GUIDANCE: Fluoroscopic and sonographic guidance was used. Ultrasound demonstrated patency of the target artery without filling defects. Access was obtained under direct sonographic visualization. A sonographic image of the vessel was obtained and placed into the permanent archive for documentation. FLUOROSCOPIC RADIATION SUMMARY: Plane A, Air Kerma: 4295.0 mGy Dose Area Product (DAP): 329600.0 mGy*cm2 Fluoro Time: 20:00 min:sec Radiation dose exceed 5 Gy: No If radiation dose exceeded 5 Gy, was counseling and instructional brochure provided:N/A ACCESS: Right common femoral artery ACCESS HEMOSTASIS: Angioseal. TECHNIQUE: The patient was prepped and draped using all elements of maximal sterile barrier technique (cap, mask, sterile gown, sterile gloves, a large sterile sheet, hand hygiene and cutaneous antisepsis), sterile ultrasound gel and sterile ultrasound probe covers. Access was obtained into the right common femoral artery using a 21-gauge micropuncture set under ultrasound guidance. Access was obtained into the right common femoral artery using a 21-gauge micropuncture set under ultrasound guidance. Access was exchanged for a 5 [place]ander sheath. 5 [place] pigtail catheter was placed in the cephalad abdominal aorta, aortogram was performed. Next, combination 5 [place] Omni Flush catheter straight Bentson wire was used to traverse the aortic bifurcation. Access was exchanged for a 6 [place] Bental sheath. Left common iliac, external iliac, and left common femoral artery angiograms were performed. Access was then exchanged for a 5 [place] C2 Cobra catheter over a Bentson wire. The left-sided renal artery, T12 intercostal artery, and L1, L2, L3, and L4 lumbar arteries were selected individually and angiograms were performed. RESULT: Angiograms of the left common, external iliac and left common femoral artery demonstrates rapid opacification of the right common femoral vein, distal external iliac vein stent appears patent. Also seen are multiple body wall venous collaterals that opacify with arterial injection. 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 This fistula overlies approximately the region of the greater trochanter. Given its location across the joint, it was determined this fistula was not amenable to endovascular stenting. Angiograms of the left renal artery, left L1, L2 angiograms were unremarkable. DSA of the left L3 lumbar artery demonstrates multiple foci of extravasation, including a large area of pooling in the left lower quadrant from one of the inferior second order branches of the L3 lumbar artery. L4 angiogram was unremarkable. INTERVENTION: The Cobra catheter was then positioned at the ostium of the left L3 lumbar artery. 2.4 [place]ander microcatheter system was then used to select a second order branch of the L3 artery. Gelfoam embolization of this branch was performed until stasis was achieved. Next, multiple 2 mm to 3 mm diameter 018 Concerto coils were then placed. Repeat DSA from the proximal lumbar artery demonstrated no further extravasation. The patient tolerated the procedure well. There were no significant complications and no other complications during the procedure. CONCLUSION: The patient was comfortable and was returned to the ICU in stable condition. Estimated Blood Loss: Minimal Number and Type of Removed Specimens: 0: ATTENDING RADIOLOGIST: Maximino Gr M.D. PROFESSOR OF CHEMICAL ENGINEERING: None The procedure was performed by the: attending radiologist, without an child nutrition assistant. The attending radiologist performed the following procedural activities: Entire procedure. IMPRESSION: MULTIPLE FOCI OF ACTIVE EXTRAVASATION FROM BRANCHES OF THE LEFT L3 LUMBAR ARTERY. SUCCESSFUL GELFOAM/COIL EMBOLIZATION OF THE MIDPORTION OF THIS ARTERY. INCIDENTALLY DISCOVERED DISTAL LEFT COMMON FEMORAL ARTERY TO COMMON FEMORAL VEIN ARTERIOVENOUS FISTULA. GIVEN ITS LOCATION ACROSS THE JOINT, NOT AMENABLE TO ENDOVASCULAR STENTING. RECOMMEND SURGICAL EVALUATION. Practice Support Specialist: [facility] Transcribe Date/Time: Oct 23 2017 2:19P Dictated by : SUNSHINE GR MD This examination was interpreted and the report reviewed and electronically signed by: SUNSHINE GR MD on Oct 23 2017 2:35PM EST IR EXIST CATH ANGIO Observed: 10/23/2017 Status: F Source: [facility] F/U 12:00 PM CLINIC OTHER CAMPUS REPOSITORY * * *Final Report* * * DATE OF EXAM: Oct 23 2017 12:00PM [id number] - IR EXIST CATH ANGIO F/U / PROCEDURE REASON: retroperitoneal bleed * * * * Physician Interpretation * * * * PROCEDURE: LEFT ILIAC, LUMBAR, RENAL ARTERY ANGIOGRAMS AND LUMBAR ARTERY EMBOLIZATION. 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 Patient is on anticoagulation. Patient was recently discharged from hospital, developed acute onset left-sided flank pain. Patient returned to the hospital, noncontrast CT performed at outside institution demonstrated 24 cm left retroperitoneal hematoma (images were not available for comparison or interpretation at time of procedure). Clinical team requests angiographic evaluation for acute blood loss anemia, tachycardia, and pallor. CONSENT: Risks, benefits, treatment options, potential complications and personnel to be involved were discussed (including the risks of radiation exposure, contrast and anesthesia administration, and any equipment needed for the procedure to ensure best possible outcome) with the patient and all questions were answered and consent was obtained prior to procedure. MEDICATION RECONCILIATION: The patient's medications and allergies were reviewed in the electronic medical record and reconciled to the proposed procedure/treatment. DAXA-PROCEDURE DISCUSSION: The appropriate elements of the pre-procedure discussion, safety check list and sign-out were performed. TIME OUT: A time out was performed immediately prior to procedure start with the nursing, and interventional team, correctly identifying the name, date of , procedure, anatomy (including marking of site and side if applicable), patient position, procedure consent form, relevant diagnostic and radiology test results, antibiotic administration if applicable, safety precautions, and procedure-specific equipment needs. Start of procedure (Time out): 1007 End of procedure (Sign out): 1200 Patient position: Supine Anesthesia: After establishing pulse oximetry, BP and EKG monitoring by the Radiology nurse, moderate sedation with Versed and Fentanyl was administered. Intra-service time (monitoring for moderate sedation): 122 minutes Patient monitoring: I personally supervised and directed an independent trained observer who assisted in monitoring the patient?s level of consciousness and physiological status throughout the procedure. Local anesthesia: 2 % lidocaine ANTIBIOTICS: None Antibiotic infusion start time: N/A CONTRAST DOSE: 90 cc of OMNIPAQUE 300 was injected into the arterial system during the procedure. 115 cc of OMNIPAQUE 350 was injected into the arterial system during the procedure. IMAGE GUIDANCE: Fluoroscopic and sonographic guidance was used. Ultrasound demonstrated patency of the target artery without filling defects. Access was obtained under direct sonographic visualization. A sonographic image of the vessel was obtained and placed into the permanent archive for documentation. FLUOROSCOPIC RADIATION SUMMARY: Plane A, Air Kerma: 4295.0 mGy Dose Area Product (DAP): 818844.0 mGy*cm2 Fluoro Time: 20:00 min:sec Radiation dose exceed 5 Gy: No If radiation dose exceeded 5 Gy, was counseling and instructional brochure provided:N/A ACCESS: Right common femoral artery ACCESS HEMOSTASIS: Angioseal. TECHNIQUE: The patient was prepped and draped using all elements of maximal sterile barrier technique (cap, mask, sterile gown, sterile gloves, a large sterile sheet, hand hygiene and cutaneous antisepsis), sterile ultrasound gel and sterile ultrasound probe covers. Access was obtained into the right common femoral artery using a 21-gauge micropuncture set under ultrasound guidance. Access was obtained into the right common femoral artery using a 21-gauge micropuncture set under ultrasound guidance. Access was exchanged for a 5 [place] Ze[place]ander sheath. 5 [place]ander pigtail catheter was placed in the cephalad abdominal aorta, aortogram was performed. Next, combination 5 [place]ander Omni Flush catheter straight Bentson wire was used to traverse the aortic bifurcation. Access was exchanged for a 6 [place]ander Bental sheath. Left common iliac, external iliac, and left common femoral artery angiograms were performed. Access was then exchanged for a 5 [place] C2 Cobra catheter over a Bentson wire. The left-sided renal artery, T12 intercostal artery, and L1, L2, L3, and L4 lumbar arteries were selected individually and angiograms were performed. RESULT: Angiograms of the left common, external iliac and left common femoral artery demonstrates rapid opacification of the right common femoral vein, distal external iliac vein stent appears patent. Also seen are multiple body wall venous collaterals that opacify with arterial injection. 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 This fistula overlies approximately the region of the greater trochanter. Given its location across the joint, it was determined this fistula was not amenable to endovascular stenting. Angiograms of the left renal artery, left L1, L2 angiograms were unremarkable. DSA of the left L3 lumbar artery demonstrates multiple foci of extravasation, including a large area of pooling in the left lower quadrant from one of the inferior second order branches of the L3 lumbar artery. L4 angiogram was unremarkable. INTERVENTION: The Cobra catheter was then positioned at the ostium of the left L3 lumbar artery. 2.4 [place] microcatheter system was then used to select a second order branch of the L3 artery. Gelfoam embolization of this branch was performed until stasis was achieved. Next, multiple 2 mm to 3 mm diameter 018 Concerto coils were then placed. Repeat DSA from the proximal lumbar artery demonstrated no further extravasation. The patient tolerated the procedure well. There were no significant complications and no other complications during the procedure. CONCLUSION: The patient was comfortable and was returned to the ICU in stable condition. Estimated Blood Loss: Minimal Number and Type of Removed Specimens: 0: ATTENDING RADIOLOGIST: Maximino Gr M.D. PROFESSOR OF CHEMICAL ENGINEERING: None The procedure was performed by the: attending radiologist, without an child nutrition assistant. The attending radiologist performed the following procedural activities: Entire procedure. IMPRESSION: MULTIPLE FOCI OF ACTIVE EXTRAVASATION FROM BRANCHES OF THE LEFT L3 LUMBAR ARTERY. SUCCESSFUL GELFOAM/COIL EMBOLIZATION OF THE MIDPORTION OF THIS ARTERY. INCIDENTALLY DISCOVERED DISTAL LEFT COMMON FEMORAL ARTERY TO COMMON FEMORAL VEIN ARTERIOVENOUS FISTULA. GIVEN ITS LOCATION ACROSS THE JOINT, NOT AMENABLE TO ENDOVASCULAR STENTING. RECOMMEND SURGICAL EVALUATION. Practice Support Specialist: [facility] Transcribe Date/Time: Oct 23 2017 2:19P Dictated by : SUNSHINE GR MD This examination was interpreted and the report reviewed and electronically signed by: SUNSHINE GR MD on Oct 23 2017 2:35PM EST IR RENAL ANGIO UNI Observed: 10/23/2017 Status: F Source: [facility] 12:00 PM CLINIC OTHER CAMPUS REPOSITORY * * *Final Report* * * DATE OF EXAM: Oct 23 2017 12:00PM [facility] [id number] - IR RENAL ANGIO UNI / PROCEDURE REASON: retroperitoneal bleed * * * * Physician Interpretation * * * * PROCEDURE: LEFT ILIAC, LUMBAR, RENAL ARTERY ANGIOGRAMS AND LUMBAR ARTERY EMBOLIZATION. 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 Patient is on anticoagulation. Patient was recently discharged from hospital, developed acute onset left-sided flank pain. Patient returned to the hospital, noncontrast CT performed at outside institution demonstrated 24 cm left retroperitoneal hematoma (images were not available for comparison or interpretation at time of procedure). Clinical team requests angiographic evaluation for acute blood loss anemia, tachycardia, and pallor. CONSENT: Risks, benefits, treatment options, potential complications and personnel to be involved were discussed (including the risks of radiation exposure, contrast and anesthesia administration, and any equipment needed for the procedure to ensure best possible outcome) with the patient and all questions were answered and consent was obtained prior to procedure. MEDICATION RECONCILIATION: The patient's medications and allergies were reviewed in the electronic medical record and reconciled to the proposed procedure/treatment. DAXA-PROCEDURE DISCUSSION: The appropriate elements of the pre-procedure discussion, safety check list and sign-out were performed. TIME OUT: A time out was performed immediately prior to procedure start with the nursing, and interventional team, correctly identifying the name, date of , procedure, anatomy (including marking of site and side if applicable), patient position, procedure consent form, relevant diagnostic and radiology test results, antibiotic administration if applicable, safety precautions, and procedure-specific equipment needs. Start of procedure (Time out): 1007 End of procedure (Sign out): 1200 Patient position: Supine Anesthesia: After establishing pulse oximetry, BP and EKG monitoring by the Radiology nurse, moderate sedation with Versed and Fentanyl was administered. Intra-service time (monitoring for moderate sedation): 122 minutes Patient monitoring: I personally supervised and directed an independent trained observer who assisted in monitoring the patient?s level of consciousness and physiological status throughout the procedure. Local anesthesia: 2 % lidocaine ANTIBIOTICS: None Antibiotic infusion start time: N/A CONTRAST DOSE: 90 cc of OMNIPAQUE 300 was injected into the arterial system during the procedure. 115 cc of OMNIPAQUE 350 was injected into the arterial system during the procedure. IMAGE GUIDANCE: Fluoroscopic and sonographic guidance was used. Ultrasound demonstrated patency of the target artery without filling defects. Access was obtained under direct sonographic visualization. A sonographic image of the vessel was obtained and placed into the permanent archive for documentation. FLUOROSCOPIC RADIATION SUMMARY: Plane A, Air Kerma: 4295.0 mGy Dose Area Product (DAP): 841858.0 mGy*cm2 Fluoro Time: 20:00 min:sec Radiation dose exceed 5 Gy: No If radiation dose exceeded 5 Gy, was counseling and instructional brochure provided:N/A ACCESS: Right common femoral artery ACCESS HEMOSTASIS: Angioseal. TECHNIQUE: The patient was prepped and draped using all elements of maximal sterile barrier technique (cap, mask, sterile gown, sterile gloves, a large sterile sheet, hand hygiene and cutaneous antisepsis), sterile ultrasound gel and sterile ultrasound probe covers. Access was obtained into the right common femoral artery using a 21-gauge micropuncture set under ultrasound guidance. Access was obtained into the right common femoral artery using a 21-gauge micropuncture set under ultrasound guidance. Access was exchanged for a 5 [place]ander sheath. 5 [place] pigtail catheter was placed in the cephalad abdominal aorta, aortogram was performed. Next, combination 5 [place] Omni Flush catheter straight Bentson wire was used to traverse the aortic bifurcation. Access was exchanged for a 6 [place] Bental sheath. Left common iliac, external iliac, and left common femoral artery angiograms were performed. Access was then exchanged for a 5 [place] C2 Cobra catheter over a Bentson wire. The left-sided renal artery, T12 intercostal artery, and L1, L2, L3, and L4 lumbar arteries were selected individually and angiograms were performed. RESULT: Angiograms of the left common, external iliac and left common femoral artery demonstrates rapid opacification of the right common femoral vein, distal external iliac vein stent appears patent. Also seen are multiple body wall venous collaterals that opacify with arterial injection. 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 This fistula overlies approximately the region of the greater trochanter. Given its location across the joint, it was determined this fistula was not amenable to endovascular stenting. Angiograms of the left renal artery, left L1, L2 angiograms were unremarkable. DSA of the left L3 lumbar artery demonstrates multiple foci of extravasation, including a large area of pooling in the left lower quadrant from one of the inferior second order branches of the L3 lumbar artery. L4 angiogram was unremarkable. INTERVENTION: The Cobra catheter was then positioned at the ostium of the left L3 lumbar artery. 2.4 [place] microcatheter system was then used to select a second order branch of the L3 artery. Gelfoam embolization of this branch was performed until stasis was achieved. Next, multiple 2 mm to 3 mm diameter 018 Concerto coils were then placed. Repeat DSA from the proximal lumbar artery demonstrated no further extravasation. The patient tolerated the procedure well. There were no significant complications and no other complications during the procedure. CONCLUSION: The patient was comfortable and was returned to the ICU in stable condition. Estimated Blood Loss: Minimal Number and Type of Removed Specimens: 0: ATTENDING RADIOLOGIST: Maximino Gr M.D. PROFESSOR OF CHEMICAL ENGINEERING: None The procedure was performed by the: attending radiologist, without an child nutrition assistant. The attending radiologist performed the following procedural activities: Entire procedure. IMPRESSION: MULTIPLE FOCI OF ACTIVE EXTRAVASATION FROM BRANCHES OF THE LEFT L3 LUMBAR ARTERY. SUCCESSFUL GELFOAM/COIL EMBOLIZATION OF THE MIDPORTION OF THIS ARTERY. INCIDENTALLY DISCOVERED DISTAL LEFT COMMON FEMORAL ARTERY TO COMMON FEMORAL VEIN ARTERIOVENOUS FISTULA. GIVEN ITS LOCATION ACROSS THE JOINT, NOT AMENABLE TO ENDOVASCULAR STENTING. RECOMMEND SURGICAL EVALUATION. Practice Support Specialist: [facility] Transcribe Date/Time: Oct 23 2017 2:19P Dictated by : SUNSHINE GR MD This examination was interpreted and the report reviewed and electronically signed by: SUNSHINE GR MD on Oct 23 2017 2:35PM EST IR ABDOMINAL AORTOGRAM Observed: 10/23/2017 Status: F Source: [place] 12:00 PM CLINIC OTHER CAMPUS REPOSITORY * * *Final Report* * * DATE OF EXAM: Oct 23 2017 12:00PM [facility] [id number] - IR ABDOMINAL AORTOGRAM / PROCEDURE REASON: retroperitoneal bleed * * * * Physician Interpretation * * * * PROCEDURE: LEFT ILIAC, LUMBAR, RENAL ARTERY ANGIOGRAMS AND LUMBAR ARTERY EMBOLIZATION. 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 Patient is on anticoagulation. Patient was recently discharged from hospital, developed acute onset left-sided flank pain. Patient returned to the hospital, noncontrast CT performed at outside institution demonstrated 24 cm left retroperitoneal hematoma (images were not available for comparison or interpretation at time of procedure). Clinical team requests angiographic evaluation for acute blood loss anemia, tachycardia, and pallor. CONSENT: Risks, benefits, treatment options, potential complications and personnel to be involved were discussed (including the risks of radiation exposure, contrast and anesthesia administration, and any equipment needed for the procedure to ensure best possible outcome) with the patient and all questions were answered and consent was obtained prior to procedure. MEDICATION RECONCILIATION: The patient's medications and allergies were reviewed in the electronic medical record and reconciled to the proposed procedure/treatment. DAXA-PROCEDURE DISCUSSION: The appropriate elements of the pre-procedure discussion, safety check list and sign-out were performed. TIME OUT: A time out was performed immediately prior to procedure start with the nursing, and interventional team, correctly identifying the name, date of , procedure, anatomy (including marking of site and side if applicable), patient position, procedure consent form, relevant diagnostic and radiology test results, antibiotic administration if applicable, safety precautions, and procedure-specific equipment needs. Start of procedure (Time out): 1007 End of procedure (Sign out): 1200 Patient position: Supine Anesthesia: After establishing pulse oximetry, BP and EKG monitoring by the Radiology nurse, moderate sedation with Versed and Fentanyl was administered. Intra-service time (monitoring for moderate sedation): 122 minutes Patient monitoring: I personally supervised and directed an independent trained observer who assisted in monitoring the patient?s level of consciousness and physiological status throughout the procedure. Local anesthesia: 2 % lidocaine ANTIBIOTICS: None Antibiotic infusion start time: N/A CONTRAST DOSE: 90 cc of OMNIPAQUE 300 was injected into the arterial system during the procedure. 115 cc of OMNIPAQUE 350 was injected into the arterial system during the procedure. IMAGE GUIDANCE: Fluoroscopic and sonographic guidance was used. Ultrasound demonstrated patency of the target artery without filling defects. Access was obtained under direct sonographic visualization. A sonographic image of the vessel was obtained and placed into the permanent archive for documentation. FLUOROSCOPIC RADIATION SUMMARY: Plane A, Air Kerma: 4295.0 mGy Dose Area Product (DAP): 109103.0 mGy*cm2 Fluoro Time: 20:00 min:sec Radiation dose exceed 5 Gy: No If radiation dose exceeded 5 Gy, was counseling and instructional brochure provided:N/A ACCESS: Right common femoral artery ACCESS HEMOSTASIS: Angioseal. TECHNIQUE: The patient was prepped and draped using all elements of maximal sterile barrier technique (cap, mask, sterile gown, sterile gloves, a large sterile sheet, hand hygiene and cutaneous antisepsis), sterile ultrasound gel and sterile ultrasound probe covers. Access was obtained into the right common femoral artery using a 21-gauge micropuncture set under ultrasound guidance. Access was obtained into the right common femoral artery using a 21-gauge micropuncture set under ultrasound guidance. Access was exchanged for a 5 [place]ander sheath. 5 [place] pigtail catheter was placed in the cephalad abdominal aorta, aortogram was performed. Next, combination 5 [place] Omni Flush catheter straight Bentson wire was used to traverse the aortic bifurcation. Access was exchanged for a 6 [place] Bental sheath. Left common iliac, external iliac, and left common femoral artery angiograms were performed. Access was then exchanged for a 5 [place] C2 Cobra catheter over a Bentson wire. The left-sided renal artery, T12 intercostal artery, and L1, L2, L3, and L4 lumbar arteries were selected individually and angiograms were performed. RESULT: Angiograms of the left common, external iliac and left common femoral artery demonstrates rapid opacification of the right common femoral vein, distal external iliac vein stent appears patent. Also seen are multiple body wall venous collaterals that opacify with arterial injection. 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 This fistula overlies approximately the region of the greater trochanter. Given its location across the joint, it was determined this fistula was not amenable to endovascular stenting. Angiograms of the left renal artery, left L1, L2 angiograms were unremarkable. DSA of the left L3 lumbar artery demonstrates multiple foci of extravasation, including a large area of pooling in the left lower quadrant from one of the inferior second order branches of the L3 lumbar artery. L4 angiogram was unremarkable. INTERVENTION: The Cobra catheter was then positioned at the ostium of the left L3 lumbar artery. 2.4 [place] microcatheter system was then used to select a second order branch of the L3 artery. Gelfoam embolization of this branch was performed until stasis was achieved. Next, multiple 2 mm to 3 mm diameter 018 Concerto coils were then placed. Repeat DSA from the proximal lumbar artery demonstrated no further extravasation. The patient tolerated the procedure well. There were no significant complications and no other complications during the procedure. CONCLUSION: The patient was comfortable and was returned to the ICU in stable condition. Estimated Blood Loss: Minimal Number and Type of Removed Specimens: 0: ATTENDING RADIOLOGIST: Maximino Gr M.D. PROFESSOR OF CHEMICAL ENGINEERING: None The procedure was performed by the: attending radiologist, without an child nutrition assistant. The attending radiologist performed the following procedural activities: Entire procedure. IMPRESSION: MULTIPLE FOCI OF ACTIVE EXTRAVASATION FROM BRANCHES OF THE LEFT L3 LUMBAR ARTERY. SUCCESSFUL GELFOAM/COIL EMBOLIZATION OF THE MIDPORTION OF THIS ARTERY. INCIDENTALLY DISCOVERED DISTAL LEFT COMMON FEMORAL ARTERY TO COMMON FEMORAL VEIN ARTERIOVENOUS FISTULA. GIVEN ITS LOCATION ACROSS THE JOINT, NOT AMENABLE TO ENDOVASCULAR STENTING. RECOMMEND SURGICAL EVALUATION. Practice Support Specialist: PSCGaudencio Transcribe Date/Time: Oct 23 2017 2:19P Dictated by : SUNSHINE GR MD This examination was interpreted and the report reviewed and electronically signed by: SUNSHINE GR MD on Oct 23 2017 2:35PM EST IR EMBO HEMORRHAGE/EXTRAVAS Observed: 10/23/2017 Status: F Source: [place] 12:00 PM CLINIC OTHER CAMPUS REPOSITORY * * *Final Report* * * DATE OF EXAM: Oct 23 2017 12:00PM FRANC[facility] [id number] - IR EMBO HEMORRHAGE/EXTRAVAS / PROCEDURE REASON: * * * * Physician Interpretation * * * * PROCEDURE: LEFT ILIAC, LUMBAR, RENAL ARTERY ANGIOGRAMS AND LUMBAR ARTERY EMBOLIZATION. 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 Patient is on anticoagulation. Patient was recently discharged from hospital, developed acute onset left-sided flank pain. Patient returned to the hospital, noncontrast CT performed at outside institution demonstrated 24 cm left retroperitoneal hematoma (images were not available for comparison or interpretation at time of procedure). Clinical team requests angiographic evaluation for acute blood loss anemia, tachycardia, and pallor. CONSENT: Risks, benefits, treatment options, potential complications and personnel to be involved were discussed (including the risks of radiation exposure, contrast and anesthesia administration, and any equipment needed for the procedure to ensure best possible outcome) with the patient and all questions were answered and consent was obtained prior to procedure. MEDICATION RECONCILIATION: The patient's medications and allergies were reviewed in the electronic medical record and reconciled to the proposed procedure/treatment. DAXA-PROCEDURE DISCUSSION: The appropriate elements of the pre-procedure discussion, safety check list and sign-out were performed. TIME OUT: A time out was performed immediately prior to procedure start with the nursing, and interventional team, correctly identifying the name, date of , procedure, anatomy (including marking of site and side if applicable), patient position, procedure consent form, relevant diagnostic and radiology test results, antibiotic administration if applicable, safety precautions, and procedure-specific equipment needs. Start of procedure (Time out): 1007 End of procedure (Sign out): 1200 Patient position: Supine Anesthesia: After establishing pulse oximetry, BP and EKG monitoring by the Radiology nurse, moderate sedation with Versed and Fentanyl was administered. Intra-service time (monitoring for moderate sedation): 122 minutes Patient monitoring: I personally supervised and directed an independent trained observer who assisted in monitoring the patient?s level of consciousness and physiological status throughout the procedure. Local anesthesia: 2 % lidocaine ANTIBIOTICS: None Antibiotic infusion start time: N/A CONTRAST DOSE: 90 cc of OMNIPAQUE 300 was injected into the arterial system during the procedure. 115 cc of OMNIPAQUE 350 was injected into the arterial system during the procedure. IMAGE GUIDANCE: Fluoroscopic and sonographic guidance was used. Ultrasound demonstrated patency of the target artery without filling defects. Access was obtained under direct sonographic visualization. A sonographic image of the vessel was obtained and placed into the permanent archive for documentation. FLUOROSCOPIC RADIATION SUMMARY: Plane A, Air Kerma: 4295.0 mGy Dose Area Product (DAP): 128749.0 mGy*cm2 Fluoro Time: 20:00 min:sec Radiation dose exceed 5 Gy: No If radiation dose exceeded 5 Gy, was counseling and instructional brochure provided:N/A ACCESS: Right common femoral artery ACCESS HEMOSTASIS: Angioseal. TECHNIQUE: The patient was prepped and draped using all elements of maximal sterile barrier technique (cap, mask, sterile gown, sterile gloves, a large sterile sheet, hand hygiene and cutaneous antisepsis), sterile ultrasound gel and sterile ultrasound probe covers. Access was obtained into the right common femoral artery using a 21-gauge micropuncture set under ultrasound guidance. Access was obtained into the right common femoral artery using a 21-gauge micropuncture set under ultrasound guidance. Access was exchanged for a 5 New Zealander sheath. 5 New Zealander pigtail catheter was placed in the cephalad abdominal aorta, aortogram was performed. Next, combination 5 [place]alander Omni Flush catheter straight Bentson wire was used to traverse the aortic bifurcation. Access was exchanged for a 6 [place] Zealander Bental sheath. Left common iliac, external iliac, and left common femoral artery angiograms were performed. Access was then exchanged for a 5 [place]alander C2 Cobra catheter over a Bentson wire. The left-sided renal artery, T12 intercostal artery, and L1, L2, L3, and L4 lumbar arteries were selected individually and angiograms were performed. RESULT: Angiograms of the left common, external iliac and left common femoral artery demonstrates rapid opacification of the right common femoral vein, distal external iliac vein stent appears patent. Also seen are multiple body wall venous collaterals that opacify with arterial injection. 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 This fistula overlies approximately the region of the greater trochanter. Given its location across the joint, it was determined this fistula was not amenable to endovascular stenting. Angiograms of the left renal artery, left L1, L2 angiograms were unremarkable. DSA of the left L3 lumbar artery demonstrates multiple foci of extravasation, including a large area of pooling in the left lower quadrant from one of the inferior second order branches of the L3 lumbar artery. L4 angiogram was unremarkable. INTERVENTION: The Cobra catheter was then positioned at the ostium of the left L3 lumbar artery. 2.4 New Zealander microcatheter system was then used to select a second order branch of the L3 artery. Gelfoam embolization of this branch was performed until stasis was achieved. Next, multiple 2 mm to 3 mm diameter 018 Concerto coils were then placed. Repeat DSA from the proximal lumbar artery demonstrated no further extravasation. The patient tolerated the procedure well. There were no significant complications and no other complications during the procedure. CONCLUSION: The patient was comfortable and was returned to the ICU in stable condition. Estimated Blood Loss: Minimal Number and Type of Removed Specimens: 0: ATTENDING RADIOLOGIST: Maximino Gr M.D. PROFESSOR OF CHEMICAL ENGINEERING: None The procedure was performed by the: attending radiologist, without an child nutrition assistant. The attending radiologist performed the following procedural activities: Entire procedure. IMPRESSION: MULTIPLE FOCI OF ACTIVE EXTRAVASATION FROM BRANCHES OF THE LEFT L3 LUMBAR ARTERY. SUCCESSFUL GELFOAM/COIL EMBOLIZATION OF THE MIDPORTION OF THIS ARTERY. INCIDENTALLY DISCOVERED DISTAL LEFT COMMON FEMORAL ARTERY TO COMMON FEMORAL VEIN ARTERIOVENOUS FISTULA. GIVEN ITS LOCATION ACROSS THE JOINT, NOT AMENABLE TO ENDOVASCULAR STENTING. RECOMMEND SURGICAL EVALUATION. Practice Support Specialist: PSCGaudencio Transcribe Date/Time: Oct 23 2017 2:19P Dictated by : SUNSHINE GR MD This examination was interpreted and the report reviewed and electronically signed by: SUNSHINE GR MD on Oct 23 2017 2:35PM EST BRIEF OP NOT Observed: 10/23/2017 Status: COMPLETED Source: [place] 11:57 AM [facility] OTHER CAMPUS REPOSITORY HNO ID: [id number] Author: Sunshine Gr Service: Radiology Author Type: Physician Type: Brief Op Note Filed: 10/23/2017 12:01 PM Note Text: BRIEF OPERATIVE / PROCEDURE NOTE SURGERY/PROCEDURE DATE: 10/23/17 INCISION/PROCEDURE START TIME: INCISION CLOSE/PROCEDURE END TIME: SURGEON(S)/PROCEDURALIST(S) AND PROFESSOR OF CHEMICAL ENGINEERING(S): Maximino Gr - Primary SURGERY/PROCEDURE(S): L RP angiogram and L3 embolization ANESTHESIA: Moderate sedation FINDINGS: Bleeding from multiple foci of from left L3, embolized with gelfoam and coils. Large ADHESIVE SPRAYER->CFV fistula ESTIMATED BLOOD LOSS: Minimal SPECIMENS: None COMPLICATIONS: None PRE-OP/PRE-PROCEDURE DIAGNOSIS: Left RP bleed POST-OP/POST-PROCEDURE DIAGNOSIS: Left L3 hemorrhage, L ADHESIVE SPRAYER-CFV AVF SIGNATURE: Sunshine Gr MD PATIENT NAME: Paloma Cannon DATE: October 23, 2017 TIME: 11:57 AM PAGER/CONTACT #: [phone] Observed: 10/23/2017 Status: COMPLETED Source: [place] 7:48 AM CLINIC OTHER CAMPUS REPOSITORY HNO ID: [id number] Author: Sapna Wyatt Service: Critical Care Author Type: Physician Type: Progress Notes Filed: 10/23/2017 2:43 PM Note Text: DR. FRED STONE, SR. HOSPITAL STAFF PHYSICIAN NOTE OF PERSONAL INVOLVEMENT IN CARE I have seen and examined the patient, reviewed the progress note completed by the nurse practitioner, and agree with the history, exam, and assessment/plan, with the following exceptions/additions. If there are fernandes items that I feel deserve particular emphasis, I have outlined them below. Please refer to the nurse practitioner note for full details, including a summary of our mutually agreed upon findings, assessment/plan, and recommendations. IMPRESSION: 27 y.o. 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 PLAN: Acute hypoxic resp failure - CXR w/o acute changes, currently on 4L O2 NC, titrate O2 down as able. HFpEF - holding home diuretics given acute bleed. Acute blood loss anemia due to retroperitoneal bleeding - CT Abdomen/Pelvis c/w acute hemorrhage, PIV x 2, transfuse pRBC's, will need platelets + FFP if requires massive transfusion, IR to evaluate. HIT - follow labs, Heme to see. APS s/p DAH - holding AC (see above). Hematology consult re: further recs in setting of needing transfusions. Will continue Prednisone + Bactrim PPx. HTN - hold home meds for now given acute bleeding. CKD 3 - baseline Cr 1.4, follow labs. Discussed risks/benefits of IR study which may require contrast. Advised that at this time, I feel as though stopping the acute bleed would take priority over contrast which may affect renal function as it if continues it may be life-threatening, pt in agreement and wishes to proceed. Neuropathy - holding Gabapentin (home med). GERD - PPI (home med). DVT PPx - SCD's, holding meds due to acute hemorrhage. Patient/Family Updated: d/w pt at bedside. Attempted to call pt's Morteza at , left message. MICU team able to update pt's father earlier today. This patient has a high probability of sudden, clinically significant deterioration, which requires the highest level of physician preparedness to intervene urgently. I managed/supervised life or organ supporting interventions that required frequent physician assessment. I have devoted my full attention to the direct care of this patient for the amount of time indicated below. I have included time that I spent with family or surrogates only if the patient was incapable of providing the necessary information or participating in medical decision making. This critical care time is exclusive of any time devoted to teaching or for separately billable procedures. Critical Care Documentation: The patient has the following organ/system impairment(s): Acute blood loss, Coagulopathy and Complex life-threatening medical problem(s) Time spent providing critical care services: 30 minutes. SIGNATURE: Sapna Wyatt MD [facility] PAGER:[phone] DATE of SERVICE: 10/23/17 TIME of SERVICE: 9:01 AM NURSING PROG Observed: 10/23/2017 Status: COMPLETED Source: [place] 7:29 AM [facility] REPOSITORY [facility] ID: [id number] Author: Lynne SanchezRn) JEFF Sprague Service: Nursing Author Type: Registered Nurse Type: Nursing Progress Note Filed: 10/23/2017 7:29 AM Note Text: Nursing Progress Note Patient Name: Paloma Cannon Patient Location: [place] [address] Daily Note: 0729 Text paged Deepa WATERS R: Bed 36: Hgb=4.8. Thanks. Please advise. Lynne This note was completed by: Lynne Sprague RN HISTORY PHYSICAL Observed: 10/23/2017 Status: COMPLETED Source: [place] 6:51 AM CLINIC OTHER CAMPUS REPOSITORY O ID: [id number] Author: Kassandra Rios Service: Critical Care Author Type: Physician Type: HANDP Filed: 10/23/2017 7:18 AM Note Text: DR. FRED STONE, SR. HOSPITAL STAFF PHYSICIAN NOTE OF PERSONAL INVOLVEMENT IN CARE I have reviewed the history and physical examination obtained and documented by the resident and I personally participated in the fernandes components. I have discussed the case and management of the patient's care. The following comments revise or confirm relevant fernandes components of the note. HPI: Ms. 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 Ms. Cannon was recently discharged from [facility] where she was admitted 10/13- for DAH requiring Mechanical ventilation with paralysis, IV steroids, and PLEX, this was her 6th episode of respiratory failure due to the same. She was discharged on Fondoparinux. She stated that just after arriving home, she felt an acute sharp pain starting below my left breast going all the way down and to my back, very severe 10/10, associated with nausea. She denies trauma or carrying a heavy object. No fever or chills. No prior similar episodes. Ms. Cannon presented to [place] ED where she was found to have a retroperitoneal bleeding on CT and Hb dropped to 5.7 g/dL. IMPRESSION: I am seeing Ms. 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 on Prednisone, Cyclophosphamide, and recently admitted to [facility] 10/13- requiring mechanical ventilation and PLEX), DVT/PE?needing extensive percutaneous thrombectomy of her IVC and lower extremity veins followed by placement of B/L?iliac venous?stents and an?endograft into her IVC, on long-term AC, HIT, CKD III, HTN, HFrEF, peripheral neuropathy, post phlebitic syndrome, for the management of: Acute blood loss anemia due to retroperitoneal bleeding: Presented with Hb 5.[address] report: extensive retroperitoneal hemorrhage on the left, with mass effect on the left kidney,. Less extensive blood products are also present along the surface if the spleen and the mesentery. Bibasilar alveolar disease. Acute hypoxemic respiratory failure: Currently on 2 LPM in the setting of recent DAH requiring Mechanical ventilation and PLEX. 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 Consult hematology - NPO for now - O2 supplement for sat > 90%. - Pain control Patient Updated This patient has a high probability of sudden, clinically significant deterioration, which requires the highest level of physician preparedness to intervene urgently. I managed/supervised life or organ supporting interventions that required frequent physician assessment. I devoted my full attention to the direct care of this patient for the amount of time indicated below. Time I spent with family or surrogate(s) is included only if the patient was incapable of providing the necessary information or participating in medical decision making. Time devoted to teaching and to any procedures I billed separately is not included. Time spent providing critical care services: 35 minutes. SIGNATURE: Kassandra Rios MD [facility] PAGER:[phone] DATE of SERVICE: October 23, 2017 COMP METABOLIC PANEL Collected: 10/23/2017 Status: F Source: [place] 6:30 AM CLINIC OTHER CAMPUS REPOSITORY TYPE CODE TESTS RESULT OUT OF REFERENCE UNITS RANGE LAB TP 6.0-8.4 g/dL Protein, Low Total 4.3 LAB ALB 3.5-5.0 g/dL Albumin Low 3.2 LAB CA 8.5-10.5 mg/dL Calcium, Low Total 8.0 LAB TBIL 0.0-1.5 mg/dL Bilirubin, Total 0.4 LAB ALKP 40-150 U/L Alkaline Low Phosphatase 34 LAB AST 7-40 U/L AST 14 LAB GLU 65-100 mg/dL Glucose High 158 LAB BUN 8-25 mg/dL BUN High 63 LAB CRET 0.70-1.40 mg/dL Creatinine 1.35 LAB NA 132-148 mmol/L Sodium 139 LAB K 3.5-5.0 mmol/L Potassium 4.1 LAB CL 98-110 mmol/L Chloride Low 97 LAB CO2 23-32 mmol/L CO2 31 LAB AGAP 9-18 mmol/L Anion Gap 11 LAB ALT 0-45 U/L ALT 9 LAB GFRAA >60 Low eGFR- 57 Amer. LAB GFRNAA >60 . eGFR-All Low Other Races 47 Performed By: #### CMP, LIPA, AMYL, CBCDIF #### [place] [phone] LIPASE Collected: 10/23/2017 Status: F Source: [place] 6:30 AM [facility] OTHER [place] REPOSITORY TYPE CODE TESTS RESULT OUT OF REFERENCE UNITS RANGE LAB LIPA 12-70 U/L Lipase 48 Performed By: #### CMP, LIPA, AMYL, CBCDIF #### [place] [phone] AMYLASE Collected: 10/23/2017 Status: F Source: [place] 6:30 AM CLINIC OTHER [place] REPOSITORY TYPE CODE TESTS RESULT OUT OF REFERENCE UNITS RANGE LAB AMYL 0-137 U/L Amylase 47 Performed By: #### CMP, LIPA, AMYL, CBCDIF #### [place] [phone] CBC AND DIFFERENTIAL Collected: 10/23/2017 Status: F Source: [place] 6:30 AM CLINIC OTHER CAMPUS REPOSITORY TYPE CODE TESTS RESULT OUT OF REFERENCE UNITS RANGE LAB WBC 3.70-11.00 k/uL WBC High 17.22 LAB RBC 3.90-5.20 m/uL Low RBC 1.75 LAB HGB 11.5-15.5 g/dL Low Alert Hemoglobin 4.8 Result Comment: Called to and read back by: Junior Zhang ICU 10/23/17 0725 Delicia LAB HCT 36.0-46.0 % Hematocrit 15.6 Low LAB MCV 80.0-100.0 fL MCV 89.1 LAB MCH 26.0-34.0 pG MCH 27.4 LAB MCHC 30.5-36.0 g/dL MCHC 30.8 LAB RDWCV 11.5-15.0 % RDW-CV 19.8 High LAB PLTCT 150-400 k/uL Platelet Count 187 LAB MPV 9.0-12.7 fL MPV 10.9 LAB NEUTS % Neut% 89.0 LAB AANEUT 1.45-7.50 k/uL Abs Neut 15.33 High LAB LYMPHS % Lymph% 6.0 LAB AALYMP 1.00-4.00 k/uL Abs Lymph 1.03 LAB MONOS % [place]% 3.0 LAB AAMONO <0.87 k/uL Abs [place] 0.52 LAB EOS % Eosin% 0.0 LAB AAEOS <0.46 k/uL Abs Eosin 0.00 LAB BASOS % Baso% 0.0 LAB AABASO <0.11 k/uL Abs Baso 0.00 LAB ABIMMG k/uL 15.33 ANC(includeSEG+BAND ) LAB META % [place]% 1.0 LAB MYELOS % Myelo% 1.0 LAB ANIIMI Anisocytosis Present LAB LFTIMI Left Shift Present LAB BSTIPW Basophilic Stippling Occasional LAB OVAIMI Ovalocytes Few LAB POLIMI Polychromasia Slight LAB PLTEST Platelet Estimate Platelet estimate adequate LAB DTYP DTYPE Manual Diff Performed By: #### CMP, LIPA, AMYL, CBCDIF #### [facility] [address] [place] [address] MAGNESIUM Collected: 10/23/2017 Status: F Source: [place] 6:30 AM [facility] OTHER [place] REPOSITORY TYPE CODE TESTS RESULT OUT OF REFERENCE UNITS RANGE LAB MG 1.7-2.6 mg/dL Magnesium 2.0 Performed By: #### MG1 #### [place] [id number] [place] [address] TYPE AND SCREEN Collected: 10/23/2017 Status: F Source: [place] 6:30 AM [facility] OTHER [place] REPOSITORY TYPE CODE TESTS RESULT OUT OF REFERENCE UNITS RANGE LAB %ABR B ABO/RH(D) POSITIVE LAB % Antibody Screen POS LAB %RADHA Antibody Identified Result Comment: ANTI-E PRESENT. ANTIBODY REACTIVITY, No Apparent Specificity. Performed By: #### TSCR #### [place] [address] XR CHEST 1V FRONTAL Observed: 10/23/2017 Status: F Source: [facility] 6:11 AM [facility] REPOSITORY * * *Final Report* * * DATE OF EXAM: Oct 23 2017 6:11AM FVX [id number] - XR CHEST 1V FRONTAL PORT / PROCEDURE REASON: Encounter for central line placement * * * * Physician Interpretation * * * * EXAMINATION: CHEST RADIOGRAPH (PORTABLE SINGLE VIEW AP) Exam Date/Time: 10/23/2017 6:11 AM Indication: Encounter for central line placement MQ: [id number] Comparison: 10/17/2017 RESULT: Lines, tubes, and devices: Dual lumen left-sided IJ central venous catheter with tip overlying right atrium. Left subclavian central venous catheter with tip overlying right atrium. Lungs and pleura: No overt pleural effusion. No pneumothorax. Interval near complete resolution of the previously seen bilateral airspace consolidation. Cardiomediastinal silhouette: Stable cardiomediastinal silhouette. Other: No acute osseous abnormality seen. IMPRESSION: Interval near complete resolution of previously seen bilateral airspace consolidation Practice Support Specialist: PSCB Transcribe Date/Time: Oct 23 2017 6:14A Dictated by : ERASMO KELLY MD This examination was interpreted and the report reviewed and electronically signed by: ERASMO KELLY MD on Oct 23 2017 6:16AM EST [id number] ALLIED HEALTH Observed: 10/23/2017 Status: COMPLETED Source: [place] 6:05 AM CLINIC OTHER CAMPUS REPOSITORY HNO ID: [id number] Author: Allyson Bai (Rt) Service: Radiology Author Type: Title Clerk Automobile Type: Allied Health Filed: 10/23/2017 6:13 AM Note Text: Radiology Service Progress Note PATIENT NAME: Paloma Cannon DATE OF SERVICE: October 23, 2017 TIME: 6:13 AM PATIENT IDENTITY VERIFICATION COMPLETED USING TWO (2) METHODS: Patient confirmed name verbally and ID band matches.. PATIENT GENDER DATA: Female. status: : No status: N/A PATIENT RELEVANT IMPLANT DATA REVIEWED: Not Applicable RADIOLOGY DEPARTMENT: General X-ray: Exam(s) Completed: Chest X-Ray PERIPHERAL IV DATA: Not applicable SIGNED BY: RT Richardson October 23, 2017 6:13 AM HISTORY PHYSICAL Observed: 10/23/2017 Status: COMPLETED Source: [place] 6:03 AM [facility] REPOSITORY HNO ID: [id number] Author: Mitchell Phan MD Service: Critical Care Author Type: Resident Type: HANDP Filed: 10/23/2017 6:53 PM Note Text: Attestation signed by Kassandra Rios at 10/23/2017 7:41 PM Attending Note I evaluated the patient and personally participated in the fernandes components. I agree with the resident's findings and plan with the following revisions and/or additions: see my separate note Signature: Kassandra Rios MD Date: 10/23/2017 Time: 7:41 PM MICU ADMISSION HISTORY AND PHYSICAL NOTE Admission Date: 10/23/2017 SUBJECTIVE 27 y/o female with hx of anti-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 endograft, on senior living AC with warfarin, plasmapharesis q2 weeks, prednisone 5 mg qD), Diffuse alveolar hemorrhage (on cyclophosphamide), HIT, HFpEF, HTN, CKD, peripheral neuropathy, post-phlebitic syndrome who was admitted to [facility] MICU on 10/13 for alveolar hemorrhage. She was discharged yesterday after she stabilized and reached her home around 6 PM. She started having severe left sided abdominal pain under her breast radiating up to thigh region after that and went back to OTH ED. She had a CT abdomen done at outside hospital that showed extensive retroperitoneal Hemorrhage on the left with mass effect on the left kidney. Also less extensive blood products present along the surface of the spleen and in the mesentery. She was transferred to [facility] as [facility] had no beds. On arrival to [facility] patient complained of severe excruciating pain in the left abdomen, 10/10 in intensity, sharp in quality radiating from Left breast to thigh region. Pain is constant per patient and only minimally improved with Dilaudid patient received in OTH. Assessment and Plan: Neuro: Severe Pain: Will give dilaudid for pain. Peripheral neuropathy: Plan: - Holding Gabapentin Pulmonary: No acute issues Cardiovascular: HFpEF: LVEF ~ 50% Holding meds for now. HTN: Plan: - Hold Amlodipine, hydralazine, torsemide GI and hematology: Severe spontenous abdominal pain, 10/10 in severity, radiating from upper abdomen to thigh. A/w nausea, no vomiting. Denies any trauma. CT abdomen: done at outside hospital that showed extensive retroperitoneal Hemorrhage on the left with mass effect on the left kidney. Also less extensive blood products present along the surface of the spleen and in the mesentery. Plan: Transfuse 2 units of blood, maintain Hb >7. H AND H Q 6 hours. Consult hematology. Renal: CKD (baseline Cr ~ 1.1-1.3): - Cr 1.38 upon presentation Plan: - Monitor BUN/Cr Hematology: - hx of anti-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 endograft, on intermediate card tender AC with warfarin, plasmapharesis q2 weeks, prednisone 5 mg qD); aslo has Hx of HIT Dx 2014 by [facility] Plan: - Consult hematology, appreciate recs Prophylactic: - PPI FULL CODE PAST MEDICAL HISTORY Diagnosis Date - (HFpEF) heart failure with preserved ejection fraction (HCC) 02/20/2016 HFpEF w last EF 50-55% On Torsemide, coreg, hydralazine and imdur at home No signs of acute exacerbation on admission Plan: -Continue home medications - Anasarca 11/29/2013 - Anemia 03/10/2015 Chronic microcytic anemia. 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 Thrombosis, and Diffuse Alveolar Hemorrhage. On Warfarin and PLEX (Twice Weekly)? Plan: -Warfarin 5mg qday-holding for planned EGD on 01/11 d/t supra therapeutic INR -Cont. PO Prednisone 10mg MWFS and 5mg TTS -Pantoprazole for GI PPx of Above -Apharesis was supposed to be yesterday, will contact plasmapheresis team on recommendations - Antiphospholipid syndrome (HCC) - Catastrophic Antiphospholipid antibody syndrome 11/09/2013 - Cholelithiasis 01/11/2017 Likely cause of recent pancreatitis. Plan: Per general surgery, no acute surgical intervention at this time. Will await results of EGD. If active gastritis, favor outpatient cholecystectomy. If no active gastritis on EGD, plan for cholecystectomy this admission. 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 - PAST SURGICAL HISTORY OF Adenoidectomy - PICC LINE INSERT/CONSULT 11/29/2013 - PICC LINE INSERT/CONSULT 03/10/2015 - PICC LINE INSERT/CONSULT 02/20/2016 FAMILY HISTORY Problem Relation Age of Onset - Breast Cancer Mother spine BRCA neg - Ovarian cyst [OTHER] Mother - ovarian cyst [OTHER] Sister - Thyroid No Family History Social History Substance Use Topics - Smoking status: Never Smoker - Smokeless tobacco: Never Used - Alcohol use No ALLERGIES Allergen Reactions - Rhubarb Rash, Hives - Heparin Other: See Comments Per patient history of HIT - was on angiomax however then took l fondaparinux for bridging to coumadin. - Iv Contrast [Iodine] Other: See Comments shuts kidneys down per patient - Rituximab Other: See Comments Elevated cardiac enzymes Prior to Admission Medications Prescriptions Prior to Admission: predniSONE (DELTASONE) 20 mg tablet Take 4 tablets by mouth once daily for 8 days. Disp: 32 tablet Rfl: 0 COMPOUNDED PRESCRIPTION Outpatient physical therapyPlease call [phone] to make an appointment Disp: 1 Each Rfl: 0 fondaparinux (ARIXTRA) 2.5 mg/0.5 mL syrg Inject 1.5 mL subcutaneously q 24 HR for 10 days. Short term medication to cover while warfarin was on hold Disp: 15 mL Rfl: 0 amLODIPine (NORVASC) 5 mg tablet Take 5 mg by mouth twice daily. Hold for SBP <120 Disp: Rfl: ondansetron (ZOFRAN, HYDROCHLORIDE,) 8 mg tablet Take 8 mg by mouth every 8 hours as needed for Nausea/Vomiting. Disp: Rfl: pantoprazole DR (PROTONIX) 40 mg tablet Take 40 mg by mouth daily at bedtime. Disp: Rfl: cetirizine (ZYRTEC) 10 mg tablet Take 10 mg by mouth twice daily. Disp: Rfl: gabapentin (NEURONTIN) 100 mg capsule Take 400mg in the morning Take 300 mg in the afternoon Take 300mg in the evening Patient may change dose based on pain Disp: 360 capsule Rfl: 2 Unknown at Unknown time torsemide (DEMADEX) 20 mg tablet Take 20 mg by mouth once daily as needed (takes 20-60 mg as needed for chronic edema). Disp: Rfl: Unknown at Unknown time sulfamethoxazole-trimethoprim (BACTRIM DS) 800-160 mg per tablet Take 1 tablet by mouth every Monday,Monday,Monday. Disp: 36 tablet Rfl: 3 Unknown at Unknown time fluticasone (FLONASE) 50 mcg/actuation nasal spray Use 1-2 Sprays in each nostril once daily as needed for Cold/Allergy Symptoms (starting in allergy season). Disp: Rfl: Unknown at Unknown time senna 8.6 mg tab Take 1 tablet by mouth twice daily as needed. Disp: 60 tablet Rfl: 0 Unknown at Unknown time Review of Systems ROS: GENERAL: Negative for malaise, significant weight loss and fever HEENT: No changes in hearing or vision, no nose bleeds or other nasal problems NECK: Negative for lumps, goiter, pain and significant neck swelling RESPIRATORY: Negative for cough, wheezing and shortness of breath CARDIOVASCULAR: Negative for chest pain, leg swelling and palpitations GI: has severe Abdominal pain, see HPI SKIN: has multiple bruises on right Arm. NEURO: Negative All other systems negative. OBJECTIVE Admission Weight: . No weight on file for this encounter. Vital Signs Temp: 36.5 ?C (97.7 ?F) (10/23/17519) Pulse: 100 (10/23/17 0600) Resp: 17 (10/23/17599) BP: 126/76 (10/23/17 0600) MAP Non Invasive (Mean Arterial Pressure): 91 (10/23/17 06) SpO2: 99 % (10/23/17599) Pain Score: 10/10 (10/23/17519) Diet DIET NPO Infusion Medications Lines, Drains, and Airways Line Central Line Single Lumen Non-tunneled Left Chest -- days Dialysis / Apheresis Double Lumen Admission to Hospital Non- tunneled Left Chest -- days Drain Indwelling Urinary Catheter 10/23/17519 Assessment Zuniga less than 1 day Physical Examination Performed Oral Mucosa: Dry mucous membranes Feeding Tube: No Eyes: PERRLA Neck: Unremarkable; No adenopathy or JVD Cardiovascular: Regular rhythm Relevant Hemodynamic Data: Respiratory: Clear to auscultation O2 Therapy: Nasal Cannula (10/23/17 0520) No Data Recorded Abdomen: Very tender abdomen more on the left side, has guarding. Extremities: Edema- No Peripheral Pulses- Present all extremities Capillary Refill- less than 3 seconds Neurologic: Awake, oriented and Alert Diagnostic tests reviewed: Most recent labs and imaging results. Labs: CBC, Coags, BMP, Mg, Phos Recent Labs 10/22/17 1245 10/22/17 0412 10/21/17 0356 WBC 18.78* 9.05 11.41* HB 8.3* 7.5* 8.7* HCT 27.5* 24.6* 28.1* PLT 223 163 187 INR -- 1.1 1.1 NA -- 138 138 K -- 3.8 3.8 CHLOR -- 93* 93* CO2 -- 34* 30 BUN -- 63* 63* CREAT -- 1.38* 1.48* GLUC -- 96 113* CA -- 8.5 8.9 MG -- 2.1 2.1 P -- 2.7 2.8 CSF AND Dilantin Liver Function, Amylase, AND Lipase Recent Labs 10/22/17 0412 10/21/17 0356 TPROT 5.1* 5.9* ALB 3.5* 3.9 ALT 13 7 AST 19 15 ALKPHOS 38 45 TBILI 0.4 0.4 ABGs PATIENT CHECKLIST ? Are restraints necessary: No ? VTE prophylaxis administered? Yes ? Stress ulcer prophylaxis? Yes ? On sedation?: No ? Pain addressed?: Yes ? Uzniga catheter necessary? Yes ? Is central line essential? No ? Plan discussed with assigned RN? Yes ? Family updated within last 24 hours? No Mitchell Phan MD October 23, 2017 6:18 AM NURSING PROG Observed: 10/23/2017 Status: COMPLETED Source: [place] 5:31 AM [facility] OTHER C[facility]US REPOSITORY HNO ID: [id number] Author: Nelia Sauer) Gabe Service: Nursing Author Type: Registered Nurse Type: Nursing Progress Note Filed: 10/23/2017 6:53 AM Note Text: Nursing Progress Note Patient Name: Paloma DIMASN: [id number] Patient Location: -MICU36/-ICU-36 Daily Note: 0510: Pt arrived to ICU bed 36. Pt received total chlorhexidine bath and was connected to all monitors 0513: MD Sylvester paged to make him aware of pt arrival to MICU. 0520: Pt assessed. See flowsheet. 0528: Zuniga placed via verbal order from MD Sylvester. UOP after zuniga removal is 180ml. 0540: MD John at bedside to assess. 0600: RN called ED Xray to come to bedside for CXR to confirm line placement. 0605: Xray at bedside. 0610: Per MD John do not give fentanyl and dilaudid together. 0635: Labs sent 0700: Bedside report in progress to relief RN This note was completed by: Nelia Bernal RN EMERGENCY DEPARTMENT Observed: 10/23/2017 Status: F Source: [place] [facility] SUMMARY 5:04 AM [facility] REPOSITORY [facility] Medical Records Department [address] [place] [address] Emergency Department Summary 10/23/17 0237 MR#: [id number] Acct: [id number] Name: PALOMA CANNON Rep #: [id number] : 1990 27 From: Lydia Harley MD PCP: Peyton Rogers MD Status: DEP ER - ER Visit Summary Date of Service: 10/23/17 Chief Complaint: Abdominal pain History of Present Illness: The patient is a 27 F with left- sided abdominal pain that started around 6 PM. The patient was just discharged early in the day from the [facility]. She had been admitted for alveolar hemorrhage as a sequelae of her antiphospholipid antibody syndrome. She takes Arixtra. No other GI symptoms except for maybe some constipation. No symptoms. No chest pain or shortness of breath. No trauma. Physical Examination: Slightly tachycardic at 104. Blood pressure stable. Afebrile. Heart tachycardic but regular. Lungs clear. Abdomen is diffusely tender over the left hemiabdomen. Skin is pale. Test Results: Hemoglobin 5.7 and white count 16.3. Creatinine slightly elevated BUN 63. INR 1.2. PTT 30. Urinalysis unremarkable. test negative. CT was performed and shows a retroperitoneal hematoma on the left, 24 cm x 10 cm deep. Emergency Department Course and Treatment: Patient received fluids and Dilaudid for pain. Hemoglobin was low, and 2 units of packed red cells were ordered. The patient remained hemodynamically stable. I spoke with the radiologist about the CT. It shows a large retroperitoneal hematoma. He could not identify a source. He thought it was likely coming from the muscle. No evidence of spleen or kidney injury or bleeding. Patient required multiple doses of Dilaudid for pain. Requested [facility] for admission. [facility] did not have ICU beds at the main campus. Patient will instead go to [facility]. Patient has remained hemodynamically stable. Awaiting transfusion. Awaiting transport. Treatment Plan: As above Disposition: Transfer to [facility] Impression: 1. Retroperitoneal hematoma 2. Anemia This note was generated with [employer] dictation software. It may contain incorrect words, spelling, and punctuation that were not noted in review of the chart prior to signing ED Disposition - Plan for ED Patient: Chief Complaint: Abd Pain Referrals: Peyton Rogers MD [Primary Care Provider] - What to do if you have Problems For any increased pain, shortness of breath, bleeding, nausea or vomiting, chest pain, or any unexpected problems, contact your Primary Care Provider. Call [facility] ([phone]) or report to the closest Emergency Room. Call 911 if necessary. 10/23/17 0504 <Electronically signed by Lydia Harley MD> Date Lydia Harley MD Cosigner Signature (If Indicated): Date CC: Peyton Rogers MD URINALYSIS, COMPLETE Collected: 10/23/2017 Status: F Source: [place] 1:30 AM [facility] REPOSITORY Order Comment: How was Urine Obtained? CLEAN CATCH TYPE CODE TESTS RESULT OUT OF RANGE REFERENCE UNITS LAB L400.3000 Yellow COLOR Normal Yellow LAB L400.3050 Clear Normal CLARITY Clear LAB L400.3200 Normal mg/dl Normal GLUCOSE, UR Normal LAB L400.3300 Negative mg/dL Normal BILIRUBIN URINE Negative LAB L400.3400 Negative mg/dl Normal KETONE UR Negative LAB L400.3465 1.002-1.030 Normal SP.GR. DIPSTX 1.015 LAB L400.3550 5.0 - 8.0 pH UR Normal 5.0 LAB L400.3600 Negative mg/dl High PROT 30 DIPSTX LAB L400.3700 Normal mg/dl Normal UROBILI Normal LAB L400.3750 Negative Normal NITRITE UR Negative LAB L400.3780 Negative /ul High 10 OCCULT BLOOD-UR LAB L400.3800 Negative /ul High LEUK 25 ESTERASE LAB L400.4050 0-5 /hpf WBC Normal 0-5 SEEN LAB L400.4100 0-5 /hpf 0 Normal RBC-UA SEEN LAB L400.4150 5-10 /hpf SQUAM 0 Normal EPI SEEN LAB L400.4300 None Seen /hpf 0 Normal BACTERIA SEEN LAB L400.4350 <or=2+ /hpf 0 Normal MUCUS, URINE SEEN Performed By: #### L400.0001 #### [facility] [address] [facility]. [place], [place], [id number] TYPE AND SCREEN Collected: 10/23/2017 Status: F Source: [place] 1:30 AM [facility] REPOSITORY Order Comment: Reason for Type AND Screen/Red Cells: SURGERY TYPE CODE TESTS RESULT OUT OF RANGE REFERENCE UNITS LAB B10.0800 B Normal BLOOD TYPE GEL POSITIVE LAB B100.4000 High Antibody POSITIVE Screen Performed By: #### B101.7450, B101.2000 #### [facility] [address] [facility]. [place], [place], [address] ANTIBODY PANEL ID Collected: 10/23/2017 Status: C Source: [place] 1:30 AM [facility] REPOSITORY Order Comment: Reason for Type AND Screen/Red Cells: SURGERY TYPE CODE TESTS RESULT OUT OF REFERENCE UNITS RANGE LAB B101.1999 ANTIBODY PANEL ANTI-E Performed By: #### B101.7450, B101.1999 #### [facility] [address] [place], [address] COMPREHENSIVE METABOLIC Collected: 10/23/2017 Status: F Source: [facility] 12:30 AM [facility] REPOSITORY TYPE CODE TESTS RESULT OUT OF RANGE REFERENCE UNITS LAB L501.0100 74-106 mg/dL High GLU 185 Result Comment: Fasting Glucose result greater than or equal to 126 mg/dL suggests DIABETES MELLITUS per A.D.A. criteria. Please note revised GLUCOSE reference range effective 2017. LAB L501.1000 7-18 mg/dL High BUN 63 LAB L501.1100 0.55-1.02 mg/dL High CREAT,SERUM 1.46 Result Comment: The validity of the calculated GFR AND GFRAA in patients over 70 years has not been determined. Clinical correlation is essential. LAB L501.1110 >60 mL/min Low EST GFR 45 Result Comment: Non- GFR Calc LAB L501.1115 >60 mL/min Low EST GFR - AA 55 Result Comment: GFR Calc LAB L501.1255 ml/min Normal Estimated CRCL 47.46 LAB L501.1300 10-20 RATIO High BUN/CRE 43.2 LAB L501.1500 6.4-8. g/dL Low 2 T PROT 4.7 LAB L501.1800 3.2-5. g/dL Low 0 ALB 2.8 LAB L501.1950 2.2-4. g/dL Low 2 GLOB 1.9 LAB L501.2000 0.9-2. RATIO Normal 4 A/G 1.5 LAB L501.2200 8.5-10 mg/dL Low .1 CA 7.6 LAB L501.4100 15-37 U/L Low AST 13 LAB L501.4305 45-117 U/L Low ALK P 43 LAB L501.4405 13-56 U/L Normal ALT 14 LAB L501.4600 0.20-1 mg/dL Normal .00 T BILI 0.40 LAB L501.5300 136-14 mmol/L Normal 5 NA 140 LAB L501.5600 3.5-5. mmol/L Normal 1 K 4.1 LAB L501.5900 98-107 mmol/L Normal CL 100 LAB L501.6100 21.0-3 mmol/L Normal 2.0 CO2 31.0 LAB L501.6200 5-15 Normal GAP 9 Performed By: #### L500.4050, L501.2450 #### [facility] [address] [place], [address] LIPASE Collected: 10/23/2017 Status: F Source: [place] 12:30 AM [facility] REPOSITORY TYPE CODE TESTS RESULT OUT OF RANGE REFERENCE UNITS LAB L501.2450 73-393 U/L Normal LIPASE 248 Performed By: #### L500.4050, L501.2450 #### [facility] [address] [facility] [place], [address] CBC W/DIFF, AUTOMATED Collected: 10/23/2017 Status: C Source: [place] 12:30 AM [facility] REPOSITORY TYPE CODE TESTS RESULT OUT OF RANGE REFERENCE UNITS LAB L100.1000 4.4-11.0 K/mm3 High WBC 16.3 LAB L100.1200 4.2-5.4 M/mm3 Low RBC 2.02 LAB L100.1300 12.0-15.0 g/dl Low alert HGB 5.7 Result Comment: CRITICAL VALUE VERIFIED. CALLED TO [place],FROG OR [facility] [employer] 10/23/17 0110 Nathalia Jones. RESULTS READ BACK BY SAME . LAB L100.1400 37-47 % Low HCT 19.0 LAB L100.1500 81-99 fL Normal MCV 94.1 LAB L100.1600 27.0-32.0 pg Normal MCH 28.2 LAB L100.1700 32-36 g/gl Low MCHC 30.0 LAB L100.1810 11.6-14.6 % High RDW CV 19.1 LAB L100.1820 35.1-43.9 fl High RDW SD 62.1 LAB L100.1900 150-450 K/mm3 Normal PLT 211 LAB L100.2000 6.2-12.0 fl Normal MPV 10.6 LAB L100.2100 47-70 % High NEUT% 87.3 LAB L100.2200 19-41 % Low LY% 4.6 LAB L100.2300 0-10 % Normal MONO% 6.0 LAB L100.2400 0-5 % Normal EO% 0.0 LAB L100.2500 0-1 % Normal BASO% 0.1 LAB L100.2550 0.0-0.9 % High IM GRAN % 2.000 Result Comment: IG% - Immature Granulocytes (promyelocytes, myelocytes and metamyelocytes) > 1% indicates that a LEFT SHIFT is Present. LAB L100.2620 2.0-7.7 X10 3/uL Absolute Neut High 14.3 LAB L100.2720 0.83-4.51 X10 3/ul Low Absolute Lymph 0.75 LAB L100.4500 SMEAR COMMENT Normal SCANNED LAB L100.4600 % ATYPICAL LYMPH Normal 2+ LAB L100.7500 POLYCHROMASIA Normal RARE LAB L100.7600 HYPOCHROMASIA Normal 2+ LAB L100.8200 OVALOCYTE Normal 2+ LAB L100.8400 SCHISTOCYTES Normal 1+ LAB L100.9900 PATH REV Normal Reviewed Result Comment: Neutrophilic leukocytosis with left shift. Severe Normocytic anemia. Clinical correlation necessary. Carlitos Hirsch M.D. 10/24/17 AMENDED REPORT 10/24/17 0955 PATH REV previously reported as: November Performed By: #### L100.0100 #### [facility] [address] [facility] [place], [place], [address] PROTHROMBIN TIME W/INR Collected: 10/23/2017 Status: F Source: [place] 12:30 AM [facility] REPOSITORY TYPE CODE TESTS RESULT OUT OF RANGE REFERENCE UNITS LAB L300.4150 11.7-14.9 SECONDS High PROTIME 15.5 LAB L300.4200 Normal INR 1.2 Performed By: #### L300.3900 #### [facility] [address] [facility] [place], [address] ,SERUM,HCG QUALI. Collected: Status: F Source: [place] 10/23/2017 12:30 AM [facility] REPOSITORY TYPE CODE TESTS RESULT OUT OF REFERENCE UNITS RANGE LAB L700.7000 0-9 Nonpreg Negative Normal HCGSQUAL NEGATIVE LAB L700.6700 =>Qualitative mIU/mL Normal HCG Qual 2 triggr Performed By: #### L700.6800 #### [facility] [address] [place], [address] PARTIAL THROMBOPLAST Collected: 10/23/2017 Status: F Source: [place] TIME 12:30 AM [facility] REPOSITORY TYPE CODE TESTS RESULT OUT OF RANGE REFERENCE UNITS LAB L300.4310 24.1-36.2 Seconds Normal PTT 30.0 Performed By: #### L300.4310 #### [facility] [address] [place], [address] ABDOMEN/PELVIS WITHOUT Observed: 10/23/2017 Status: F Source: [facility] CONT 12:23 AM [facility] REPOSITORY [facility] Imaging Services [address] [place] [address] Abdomen/Pelvis without Cont MR#: [id number] Acct: [id number] Name: PALOMA CANNON Lauren Rep #: [id number] : 1990 F 27 From: Raciel Briggs MD PCP: Peyton Rogers MD Status: REG ER Study: Abdomen/Pelvis without Cont Date of Exam: 10/23/17 Exam# [id number] Ordering Dr: Lydia Harley MD STUDY: CT ABDOMEN AND PELVIS WITHOUT CONTRAST REASON FOR EXAM: Female, 27 years old. Left-sided abdominal pain with history of antiphospholipid syndrome RADIATION DOSAGE (If Supplied By Facility): CTDIvol = ( 18.60 ) mGy, DLP = ( 1041.24 ) mGycm TECHNIQUE: Transaxial images were obtained from the dome of the diaphragm to the symphysis pubis without oral contrast, and without intravenous contrast. Sagittal and coronal images were reconstructed. Individualized dose optimization techniques were used for this CT. COMPARISON: 01/06/2017 FINDINGS: Bibasilar alveolar disease. The visualized portions of the heart are within normal limits. Normal liver. There are surgical clips in the gallbladder fossa consistent with a prior cholecystectomy. Normal pancreas. Normal bilateral adrenal glands. Normal right kidney. Normal visualized stomach. The appendix is visualized and appears normal. Stents are present in the inferior vena cava and both common iliac and external iliac veins. Extensive retroperitoneal hemorrhage is noted on the left. This collection measures 24.2 cm craniocaudal by 10.2 cm deep. This extends from the level of the pelvic inlet upwards to the left upper quadrant. There is displacement of the left kidney anteriorly. Blood products also extend along the surface of the spleen. No splenic lacerations are seen on this noncontrast study. The left kidney itself otherwise has an unremarkable appearance, without evidence of laceration or subcapsular blood. Smaller amounts of blood and fluid are also present in the central and left mesentery, especially inferiorly. Normal urinary bladder. Multiple abdominal wall varices. Diffuse anasarca. Normal osseous structures. CT/Abdomen/Pelvis without Cont IMPRESSION: Extensive retroperitoneal hemorrhage on the left, with mass effect on the left kidney. Less extensive blood products are also present along the surface of the spleen and in the mesentery. Bibasilar alveolar disease. N.B. : The above information has been verbally conveyed by Raciel Briggs MD to Lydia Harley , Referring Physician, on 10/23/2017 01:40:37 (ET). Electronically Signed: Raciel Briggs MD at 1:40 EDT Tel , Service support , N.B. : The above information has been verbally conveyed by Raceil Briggs MD to Lydia Harley , Referring Physician, on 10/23/2017 01:40:37 (ET). CC: Peyton Rogers MD; Lydia Harley MD Practice Support Specialist: Signed SR-ABDOMEN/PELVIS WITHOUT Observed: 10/23/2017 Status: F Source: [place] CONT IMPORT 12:00 AM [facility] REPOSITORY Images were obtained outside of [facility] [id number] NURSING PROG Observed: 10/22/2017 Status: COMPLETED Source: [place] 4:00 PM [facility] REPOSITORY HNO ID: [id number] Author: Hank (Rn) JEFF Saeed Service: (none) Author Type: Registered Nurse Type: Nursing Progress Note Filed: 10/22/2017 4:17 PM Note Text: Nursing Progress Note Patient Name: Paloma Cannon Patient Location: [place] [id number] Daily Note:Pt discharged at 1600, going home in stable condition. Left floor via wheelchair, pushed by . Going home in family car. This note was completed by: Hank Saeed RN PLAN OF CARE Observed: 10/22/2017 Status: COMPLETED Source: [place] 1:55 PM [facility] REPOSITORY HNO ID: [id number] Author: Larisa Vila (Pharmacist) Service: Pharmacy Author Type: Pharmacist Type: Plan of Care Filed: 10/22/2017 1:57 PM Note Text: DISCHARGE MEDICATION REVIEW BY PHARMACY Patient Name: Paloma Cannon Account #: Data Unavailable Admission Date: 10/13/2017 Date of Contact: October 22, 2017 Time of Contact: 1:55 PM Medication list was reviewed by a Pharmacist for drug interactions or drug related problems:Yes Below is a summary of pharmacist recommendations discussed with LIP: The following medications were discussed with LIP for further review: Prednisone taper I have discussed the recommendations and the medication orders have been addressed by [facility]. Patient will follow up with hematology 10/30/17 and additional prednisone doses will be prescribed or tapered down at that time. Larisa Vila Pharmacist October 22, 2017 1:55 PM Pager: [phone] 10/22/2017 1:55 PM Medication List START taking these medications COMPOUNDED PRESCRIPTION Outpatient physical therapy Please call [phone] to make an appointment CHANGE how you take these medications fondaparinux 2.5 mg/0.5 mL Syrg Commonly known as: ARIXTRA Inject 1.5 mL subcutaneously q 24 HR for 10 days. Short term medication to cover while warfarin was on hold What changed: how much to take predniSONE 20 mg tablet Commonly known as: DELTASONE Take 4 tablets by mouth once daily for 8 days. Start taking on: 10/23/2017 What changed: - medication strength - how much to take CONTINUE taking these medications amLODIPine 5 mg tablet Commonly known as: NORVASC cetirizine 10 mg tablet Commonly known as: ZyrTEC FLONASE 50 mcg/actuation nasal spray Generic drug: fluticasone gabapentin 100 mg capsule Commonly known as: NEURONTIN Take 400mg in the morning Take 300 mg in the afternoon Take 300mg in the evening Patient may change dose based on pain PROTONIX 40 mg tablet Generic drug: pantoprazole DR senna 8.6 mg Tab Commonly known as: SENOKOT Take 1 tablet by mouth twice daily as needed. sulfamethoxazole-trimethoprim 800-160 mg per tablet Commonly known as: BACTRIM DS Take 1 tablet by mouth every Monday,Monday,Monday. torsemide 20 mg tablet Commonly known as: DEMADEX ZOFRAN ( HYDROCHLORIDE) 8 mg tablet Generic drug: ondansetron STOP taking these medications cyclophosphamide 50 mg capsule Commonly known as: CYTOXAN warfarin 2.5 mg tablet Commonly known as: COUMADIN Where to Get Your Medications Information about where to get these medications is not yet available ! Ask your nurse or doctor about these medications - COMPOUNDED PRESCRIPTION - fondaparinux 2.5 mg/0.5 mL Syrg - predniSONE 20 mg tablet CNDS Observed: 10/22/2017 Status: COMPLETED Source: [place] 1:31 PM [facility] [place] REPOSITORY HNO ID: [id number] Author: Ranjan Mitchell Service: General Internal Medicine Author Type: Physician Type: Discharge Summaries Filed: 10/23/2017 2:05 PM Note Text: DISCHARGE SUMMARY PATIENT NAME: Paloma Cannon ADMISSION DATE: 10/13/2017 DISCHARGE DATE: 10/22/2017 ATTENDING PHYSICIAN: Ranjan Mitchell REASON FOR HOSPITALIZATION: Diffuse Alveolar Hemorrhage DIAGNOSIS: Active Problems: APS (antiphospholipid syndrome) (HCC) CKD (chronic kidney disease) stage 3, GFR 30-59 ml/min (HFpEF) heart failure with preserved ejection fraction (HCC) HTN (hypertension) Peripheral neuropathy Renal vein thrombosis (HCC) IVC thrombosis (HCC) Resolved Problems: Pulmonary alveolar hemorrhage Ruled Out OPERATIONS DURING HOSPITALIZATION: None PROCEDURES DURING HOSPITALIZATION: Intubation 10/13-10/16/2017 PLEX X 2: 10/16; 10/[address] [facility] COURSE: 27 year old female who presented with DAH. Past medical hx is significant for: - Anti-phospholipid antibody syndrome c/b DAH, catastrophic DVT/PE needing extensive percutaneous thrombectomy of her IVC and lower extremity veins followed by placement of B/L?iliac venous?stents and an?endograft into her IVC, on long-term AC with coumadin. - DAH (on prednisone and cyclophosphamide, 5 acute episodes of respiratory decline since , last admission for hemoptysis was on March 09, 2017. ) - HIT - CKD 3, secondary to renal vein thrombosis and contrast induced nephropathy - HTN - HFrEF - Peripheral neutropathy - Post phlebitic syndrome She initially presented to [facility] ED with hemoptysis/SOB - found to be in increased work of breathing and low sats - was intubated (10/13/17). Initial labs: Hgb 10.1, WBC 17, INR 2.1 (last dose of Warfarin 5 mg on 10/12/17 evening), Cr 1.32, K 5.0, Bicarb 18, AG 18, Lactate 12.4. Initial ABG on 100% FiO2/PEEP 14: 7.29, 44,79. Was transferred to [facility] MICU for further management of DAH on 10/13. MICU COURSE: 10/13: Admitted to MICU. Intubated. 10/14: weaning to 2mcg Levo, CXR improved, started on ppx fondaparinux 10/15: Off NE drip. Off paralytics. Weaning off sedation but gets agitated. INR 2.0 this morning. Cr increased to 1.82. 10/16: PLEX today. Extubated after rounds. Doing well off ventilator. 10/17: Blood-tinged sputum, left-sided chest pain and increased oxygen requirement. For her, could be PE, but no other plan than to anticoagulate anyway. Kept fondaparinux at 7.5 dose. Hematology aware. Keep in MICU. 10/18: No hemoptysis. Still having left sided chest pain. Not pleuritic or tender. Oxygen requirement improved--on RA. Splenic ultrasound negative. ?PLEX today 10/19: Left sided chest pain improving. ? Hematology was consulted: She was started on Solumedrol 250 mg Q12h for DAH and dose was decreased to 100mg on 10/17. She received PLEX on 10/16 and 10/18. Since extubation, she had 4 episodes of hemoptysis. Hb remained stable. Last episode was 2 days ago. Hematology recommended increasing solumedrol back to 250 if hemoptysis persists. ? B/l LE Us did not show any acute DVT, +for R chronic common femoral DVT. She was started on prophylactic fondaparinux on 10/14 and then transitioned to full dose on 10/15. On 10/17, patient started complaining of L sided lower chest pain located laterally. . Pain is constant, 02/16, nonpleuritic, reproducible on palpation. Cardiac enzymes and EKG were unremarkable. US of the spleen did not show any acute splenic infarct, borderline enlargement of the spleen consistent with prior CT in 01/2017. On the RNF, she was transitioned to PO Prednisone 80 mg 10/21/2017-- and 7.5 mg of Fondaparinux 10/20/2017-- She was comfortable on room air without further episodes of hemoptysis. Neurology were consulted for Left foot numbness, they did not recommend any intervention. Symptom improved with compression wraps Hb was down trending, but a repeat check on 10/22 was >8. She was discharged with instructions to get a repeat blood draw on 10/23. She was also given a dose of IV Iron prior to discharge on 10/22 LABS AND PROCEDURES PENDING AT DISCHARGE: No pending results. CONSULTING TEAMS DURING HOSPITALIZATION: Hematology - Dr Rios PATIENT CONDITION AT DISCHARGE: Stable DISCHARGE DISPOSITION: Home/Self Care Prescription for outpatient physical therapy given Discharge Physical Exam: VITAL SIGNS: BP 152/69 Pulse 112 Temp 36.7 ?C (98 ?F) (Oral) Resp 14 Ht 160 cm (5' 3) Wt 105 kg (231 lb 7.7 oz) SpO2 95% BMI 41.01 kg/m2 INFORMATION PROVIDED TO PATIENT: (To pull info documented from the DC Instruct Orderset Complete O/S First): Discharge instructions provided to patient DISCHARGE MEDICATION: Current Discharge Medication List START taking these medications COMPOUNDED PRESCRIPTION Outpatient physical therapy Please call [phone] to make an appointment Qty: 1 Each Refills: 0 CONTINUE these medications which have CHANGED predniSONE (DELTASONE) 80 mg Take 80 mg by mouth once daily. Qty: 32 tablet Refills: 0 fondaparinux (ARIXTRA) 7.5 mg Inject 7.5 mg subcutaneously q 24 HR. Short term medication to cover while warfarin was on hold Qty: 15 mL Refills: 0 CONTINUE these medications which have NOT CHANGED amLODIPine (NORVASC) 5 mg Take 5 mg by mouth twice daily. Hold for SBP <120 ondansetron (ZOFRAN) 8 mg Take 8 mg by mouth every 8 hours as needed for Nausea/Vomiting. pantoprazole DR (PROTONIX) 40 mg Take 40 mg by mouth daily at bedtime. cetirizine (ZyrTEC) 10 mg Take 10 mg by mouth twice daily. gabapentin (NEURONTIN) 100 mg capsule Take 400mg in the morning Take 300 mg in the afternoon Take 300mg in the evening Patient may change dose based on pain Qty: 360 capsule Refills: 2 Associated Diagnoses:Peripheral polyneuropathy (HCC) torsemide (DEMADEX) 20 mg Take 20 mg by mouth once daily as needed (takes 20-60 mg as needed for chronic edema). sulfamethoxazole-trimethoprim (BACTRIM DS,SEPTRA DS) 1 tablet Take 1 tablet by mouth every Monday,Monday,Monday. Qty: 36 tablet Refills: 3 fluticasone (FLONASE) 1-2 Sprays Use 1-2 Sprays in each nostril once daily as needed for Cold/Allergy Symptoms (starting in allergy season). senna (SENOKOT) 8.6 mg Take 8.6 mg by mouth twice daily as needed. Qty: 60 tablet Refills: 0 STOP taking these medications cyclophosphamide (CYTOXAN) 150 mg Comments: Reason for Stopping: warfarin (COUMADIN) 2.5 mg tablet Comments: Reason for Stopping: FUTURE APPOINTMENTS: Future Appointments Date Time Provider Department Center 10/30/2017 11:40 AM [id number] [email or web address] 10/30/2017 11:40 AM [id number] [place] [facility]/30/2017 12:30 PM [id number] [facility] 11/13/2017 12:00 PM [id number] [facility] 11/24/2017 9:00 AM [id number], CHITRA INTMWS [facility] 11/27/2017 12:00 PM [id number] [facility] [place] 12/05/2017 8:15 AM [id number], LISA (PT) PTWS [facility] 12/11/2017 12:00 PM [id number] [facility] [place] 12/11/2017 12:20 PM [id number] CHEST MAIN A21 RADMN RADIO A BLDG 12/11/2017 1:25 PM [id number]-PARAMBILGUILLAUME PULMMN PULM A/E/R/G 12/11/2017 1:25 PM [id number]-PARAMBIL, GUILLAUME PULMMN PULM A/E/R/G 12/25/2017 12:00 PM [id number] [facility] [place] 01/08/2018 12:00 PM [id number] [facility] [place] 01/22/2018 12:00 PM [id number] [facility] [place] 02/05/2018 12:00 PM [id number] [facility] [place] TIME OF CARE (Use first blank if not applicable): TIME OF CARE: Discharge Management: I personally spent greater than 30 minutes involved in the discharge management of this patient. SIGNATURE: Edwige Keene MD PATIENT NAME: Paloma Cannon DATE: October 22, 2017 TIME: 1:31 PM PAGER/CONTACT #: [phone] CBC Collected: 10/22/2017 Status: F Source: [place] 12:45 PM [facility] REPOSITORY TYPE CODE TESTS RESULT OUT OF REFERENCE UNITS RANGE LAB WBC 3.70-11.00 k/uL WBC High 18.78 LAB RBC 3.90-5.20 m/uL Low RBC 3.03 LAB HGB 11.5-15.5 g/dL Low Hemoglobin 8.3 LAB HCT 36.0-46.0 % Low Hematocrit 27.5 LAB MCV 80.0-100.0 fL MCV 90.8 LAB MCH 26.0-34.0 pG MCH 27.4 LAB MCHC 30.5-36.0 g/dL Low MCHC 30.2 LAB RDWCV 11.5-15.0 % RDW-CV High 19.1 LAB PLTCT 150-400 k/uL Platelet Count 223 LAB MPV 9.0-12.7 fL MPV 12.2 LAB ABSNUC <0.01 k/uL Absolute High nRBC 0.02 Performed By: #### CBC #### [facility] [address], [place] [address] TYPE AND SCREEN Collected: 10/22/2017 Status: F Source: [place] 12:45 PM [facility] REPOSITORY TYPE CODE TESTS RESULT OUT OF REFERENCE UNITS RANGE LAB %ABR B ABO/RH(D) POSITIVE LAB % Antibody POS Screen Performed By: #### TSCR #### [facility] [address], [place] [address] PLAN OF CARE Observed: 10/22/2017 Status: COMPLETED Source: [place] 12:40 PM [facility] REPOSITORY HNO ID: [id number] Author: Dominique Rios Service: Hematology/Oncology Author Type: Physician Type: Plan of Care Filed: 10/22/2017 12:43 PM Note Text: October 22, 2017 12:40 PM Brief Hematology Note: Patient seen at bedside with primary team No bleeding or hemoptysis but note made of 1g drop in hemoglobin overnight Discussed with patient and her that I would like to repeat HH before plan made re: discharge today STAT now If hemoglobin in 8.5g/dl range OK for her to be discharged If lower then please call me to discuss Understand that patient is desperate to be discharged but brenda if Hemoglobin lower than current 7.3g/dL range then would not discharge. Her iron saturations were low and she has received Fe IV as outpatient OK to give a dose of Fe today while we wait on above testing Please call me with results Thank you. Dominique Rios, DO Hematology Consult Service PROGRESS Observed: 10/22/2017 Status: COMPLETED Source: [place] 8:01 AM [facility] REPOSITORY HNO ID: [id number] Author: Ranjan Mitchell Service: General Internal Medicine Author Type: Physician Type: Progress Notes Filed: 10/22/2017 1:39 PM Note Text: INPATIENT PROGRESS NOTE SERVICE DATE: 10/22/2017 SERVICE TIME: 7:51 am PRIMARY SERVICE: Vipul Ratliff Subjective INTERVAL HPI: - No overnight events - Hb down trending to 7.5, however no clinical bleeds - SCr stable at 1.38 Current hospital medications: hydrALAZINE 100 mg tab(s) (APRESOLINE) 100 mg ORAL/FEEDING TUBE q 8 H hydrocortisone sodium succinate (PF) 100 mg injection (Solu- CORTEF) 100 mg INTRAVENOUS APHERESIS PRN cetirizine 10 mg tab(s) (ZyrTEC) 10 mg ORAL/FEEDING TUBE DAILY docusate sodium 100 mg cap(s) (COLACE) 100 mg ORAL BID fondaparinux 7.5 mg injection (ARIXTRA) 7.5 mg SUBCUTANEOUS q 24 HR predniSONE (DELTASONE) tab(s) 80 mg 80 mg ORAL DAILY pantoprazole DR 40 mg tab(s) (PROTONIX) 40 mg ORAL AT BEDTIME polyethylene glycol 3350 17 g packet (MIRALAX, GLYCOLAX) 17 g ORAL/FEEDING TUBE DAILY gabapentin 300 mg cap(s) (NEURONTIN) 300 mg ORAL/FEEDING TUBE q 8 H HYDROmorphone 2 mg tab(s) (DILAUDID) 2 mg ORAL/FEEDING TUBE q 3 H PRN HYDROmorphone 0.4 mg injection (DILAUDID) 0.4 mg INTRAVENOUS q 4 H PRN sodium citrate 4% 3-6 mL catheter lock 3-6 mL INTRALUMINAL APHERESIS PRN amLODIPine 10 mg tab(s) (NORVASC) 10 mg ORAL/FEEDING TUBE DAILY sulfamethoxazole-trimethoprim 800-160 mg 1 tablet (BACTRIM DS,SEPTRA DS) 1 tablet ORAL MO-WE- sennosides 8.8 mg/5 mL 8.8 mg (SENNA) 8.8 mg ORAL/FEEDING TUBE BID Objective PHYSICAL EXAM: BP 139/62 Pulse 90 Temp (Src) 98.4 (Oral) Resp 19 Ht 5' 3 (1.60m) Wt 231 lb 7.7 oz (105.0kg) SpO2 93% BMI 41.02 kg/(m2). Physical Exam Performed GENERAL: Alert, no distress, cooperative SKIN: There is an erythematous rash involving the patient's face and sparing the nasolabial folds HEAD/SINUSES: No significant findings LUNGS: Clear to auscultation with good bilateral air entry CARDIAC: RRR. Normal S1 and S2, grade 2/6 hololsystolic murmur over the left sternal border ABDOMEN: Positive bowel sounds, soft, nontender, nondistended EXTREMITIES: Bilateral lower extremity edema with 1+ pitting. 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 There is absence of sensation to touch over the dorsum of the left foot DATA: Diagnostic tests reviewed for today's visit: Most recent labs and imaging results. 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 The patient initially presented to the MICU for diffuse alveolar hemorrhage that was treated and she was transferred back to the [facility] on 10/19. # Diffuse alveolar hemorrhage - On prednisone and cyclophosphamide at home. - 5 acute episodes of respiratory decline since , - Last admission for hemoptysis was on March 09, 2017. - Presneted on 10/13 with diffuse alveolar hemorrhage to the MICU and was intubated for 6 days - Was started on solumedrol 250 mg Q12h for DAH and dose was decreased to 100mg on 10/17. - Received PLEX on 10/16 and 10/18. - Transferred to [facility] on 10/19 - Steroids decreased to prednisone 80 mg QD on 10/21 - No hemoptysis or pulmonary symptoms PLAN: - Continue prednisone 80 mg QD and will taper according to hematology recs - Increase solumedrol to 250 if hemoptysis recurs and persists. - CBC daily - Follow up with [facility] on plan for outpatient AC ? #Left foot numbness - The patient reports numbness in the dorsum of her left foot - She had absent sensation to touch on physical exam but good proprioception - Has a history of neuropathy and is on gabapentin 300 mg Q 8 hrs - Concerning for mononeuropathy Plan - Will consider nerve conduction studies as outpatient - Continue gabapentin 300 mg Q 8 hrs ? # Anti-phospholipid antibody syndrome - Severe disease c/b DAH, catastrophic DVT/PE needing extensive percutaneous thrombectomy of her IVC and lower extremity veins followed by placement of B/L?iliac venous?stents and an?endograft into her IVC in 2011 - On long-term AC with coumadin, given hx of HIT. - Currently off coumadin and on fondaparinux for AC PLAN: - Continue fondaparinux - Follow hematology recs regarding outpatient AC and resuming cyclophosphamide # HTN - On amlodipine 10 mg at home. Was previously on hydralazine. - Started on Hydral 75 mg Q 8 hrs during her stay - On torsemide 40 daily for LE edema and HF. - Still HTN with SBP in 140s-160 Plan: - Continue amlodipine 10 mg QD - Increase hydralazine to 100 mg Q 8 hrs ? # LV dysfunction - EF 47% on 10/13/2017. - On torsemide 40 QD at home. - Net positive since hospital admission - No clinical signs or symptoms of HF PLAN: - continue home diuresis with PO Torsemide ? ? # CAPRICE on CKD (baseline Cr ~ 1.1-1.3) - Cr today 1.48 Plan: - Monitor BUN/Cr - continue home diuresis with PO Torsemide SIGNATURE: Edwige Keene MD PATIENT NAME: Paloma Cannon DATE: October 22, 2017 TIME: 8:51 AM PAGER: [phone] I have reviewed the progress note documented by the resident, and I personally confirmed/participated in the fernandes components. I evaluated and examined the patient with the resident team and reviewed the relevant data. I have discussed the case and management of the patient's care with the healthcare team, including residents, nursing, catalytic case operator and the patient. Her h/h of 7.3 likely lab error this am Repeat one is 8.3 Discussed with hematology staff in person earlier, would discuss with her regarding d/c plan Patient is desperate and very keen to go home She says her Left foot numbness resolved with compression stocking and is back to baseline Cr is better too Will get IV iron and discuss with hematology re d/c plan Spent >30 minutes with patient and discussion with hematology and RN Ranjan matson [phone] 10/22/2017 1:38 PM CBC Collected: 10/22/2017 Status: F Source: [place] 4:12 AM [facility] [place] REPOSITORY TYPE CODE TESTS RESULT OUT OF REFERENCE UNITS RANGE LAB WBC 3.70-11.00 k/uL WBC 9.05 LAB RBC 3.90-5.20 m/uL Low RBC 2.71 LAB HGB 11.5-15.5 g/dL Low Hemoglobin 7.5 LAB HCT 36.0-46.0 % Low Hematocrit 24.6 LAB MCV 80.0-100.0 fL MCV 90.8 LAB MCH 26.0-34.0 pG MCH 27.7 LAB MCHC 30.5-36.0 g/dL MCHC 30.5 LAB RDWCV 11.5-15.0 % RDW-CV High 19.1 LAB PLTCT 150-400 k/uL Platelet Count 163 LAB MPV 9.0-12.7 fL MPV 11.8 LAB ABSNUC <0.01 k/uL Absolute High nRBC 0.01 Performed By: #### CBC, PT, CMP, MG1, PHOS #### [facility] [address], [place] [address] PROTIME Collected: 10/22/2017 Status: F Source: [place] 4:12 AM [facility] REPOSITORY TYPE CODE TESTS RESULT OUT OF RANGE REFERENCE UNITS LAB PSEC 9.7-13.0 sec PT Sec 11.5 LAB INR 0.9-1.3 PT INR 1.1 Result Comment: Vitamin K Antagonist (VKA) Therapeutic Range: INR 2 to 3 (Target INR of 2.5) Note: For patients treated with VKA drugs, such as warfarin, the [place] [employer] 2012 Guideline recommends a therapeutic INR range of 2 to 3 (target INR of 2.5). This recommendation includes high-risk patients with antiphospholipid syndrome with previous arterial or venous thromboembolism, current-generation mechanical or bioprosthetic aortic heart valve replacement. Note: Patients with mechanical aortic valve replacement and additional risk factors for thromboembolic events (atrial fibrillation, previous thromboembolism, LV dysfunction, hypercoagulable conditions) or an older generation mechanical AVR (i.e., ball in-Cage) or any mechanical MVR should have a INR therapeutic range of 2.5 to 3.5 (target INR of 3). Michael GH, et al. Chest 2012, 141:7S-47S Diogenes RA et al. [facility] 2017, 70: 252-289 Performed By: #### CBC, PT, CMP, MG1, PHOS #### [facility] [address] [place], [place] [address] COMP METABOLIC PANEL Collected: 10/22/2017 Status: F Source: [place] 4:12 AM [facility] [place] REPOSITORY TYPE CODE TESTS RESULT OUT OF REFERENCE UNITS RANGE LAB TP 6.3-8.0 g/dL Low Protein, Total 5.1 LAB ALB 3.9-4.9 g/dL Low Albumin 3.5 LAB CA 8.5-10.2 mg/dL Calcium, Total 8.5 LAB TBIL 0.2-1.3 mg/dL Bilirubin, Total 0.4 LAB ALKP 32-117 U/L Alkaline Phosphatase 38 LAB AST 13-35 U/L AST 19 LAB GLU 74-99 mg/dL Glucose 96 Result Comment: The [place] [employer] (ADA) provides guidance for cutoff values for fasting glucose and random glucose. The ADA defines fasting as no caloric intake for at least 8 hours. Fas ting plasma glucose results between 100 to 125 mg/dL indicate increased risk for diabetes (prediabetes). Fasting plasma glucose results greater than or equal to 126 mg/dL meet the criteria for diagnosis of diabetes. In the absence of unequivocal hyperglycemia, results should be confirmed by repeat testing. In a patient with classic symptoms of hyperglycemia or hyperglycemic crisis, random plasma glucose results greater than or equal to 200 mg/dL meet the criteria for diagnosis of diabetes. Reference: Standards of Medical Care in Diabetes 2016, [place] [employer]. Diabetes Care. 2016.39(Suppl 1). LAB BUN 7-21 mg/dL BUN High 63 LAB CRET 0.58-0.96 mg/dL Creatinine High 1.38 LAB NA 136-144 mmol/L Sodium 138 LAB K 3.7-5.1 mmol/L Potassium 3.8 LAB CL 97-105 mmol/L Low Chloride 93 LAB CO2 22-30 mmol/L CO2 High 34 LAB AGAP 9-18 mmol/L Anion Gap 11 LAB ALT 7-38 U/L ALT 13 LAB GFRAA eGFR- Amer. 55 LAB GFRNAA . eGFR-All Other Races 46 Result Comment: eGFR (Estimated GFR) Units of measure: mL/min/1.73 meters squared eGFR is derived from the reexpressed MDRD Study equation using the following parameters: serum creatinine, age, gender and race. The creatinine assay has been calibrated to be traceable to IDMS. An eGFR <60 mL/min/1.73m2 for >3 months is consistent with chronic kidney disease. Refer to KDOQI guidelines for clinical interpretation. In patients with unstable renal function, e.g. those with acute kidney injury, the eGFR may not accurately reflect actual GFR. Performed By: #### CBC, PT, CMP, MG1, PHOS #### [facility] [address] [place] [address] MAGNESIUM Collected: 10/22/2017 Status: F Source: [place] 4:12 AM [facility] REPOSITORY TYPE CODE TESTS RESULT OUT OF REFERENCE UNITS RANGE LAB MG 1.7-2.3 mg/dL Magnesium 2.1 Performed By: #### CBC, PT, CMP, MG1, PHOS #### [facility] [address] [place] [address] PHOSPHORUS Collected: 10/22/2017 Status: F Source: [place] 4:12 AM [facility] REPOSITORY TYPE CODE TESTS RESULT OUT OF REFERENCE UNITS RANGE LAB PHOS 2.7-4.8 mg/dL Phosphorus 2.7 Performed By: #### CBC, PT, CMP, MG1, PHOS #### [facility] [address] [address] CONSULT Observed: 10/21/2017 Status: COMPLETED Source: [place] 1:33 PM [facility] REPOSITORY HNO ID: [id number] Author: Rj Muro Service: Neurology Author Type: Physician Type: Consults Filed: 10/22/2017 10:04 AM Note Text: GENERAL NEUROLOGY, INPATIENT INITIAL CONSULT [facility] SERVICE DATE: October 21, 2017 SERVICE TIME: 1:34 PM SUBJECTIVE CHIEF COMPLAINT (CC): L dorsum of foot numbness and mild L foot drop HPI: Paloma Cannon is a 27 year old female who presents with CC. Consultation requested by primary team for an opinion regarding CC. My final recommendations will be communicated back to the requesting physician by way of shared Medical record or verbal communication. 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 The patient initially presented to the MICU for diffuse alveolar hemorrhage that was treated, received to rounds of PLEX (10/16, 10/18/17) and she was transferred back to the [facility] on 10/19. She also received solumedrol 500mg daily which was tapered recently back to 80mg daily on 10/21. She has hx of R foot drop and neuropathy which occurred after a previous DVT, but the L foot numbness/weakness is new and was first noted after she awoke from being extubated and was aware of it. She feels numb to soft touch on the L dorsum of her foot from just above the ankle down to the tips of her toes and the sensation on the bottom of her foot/heal is intact. She feels that her strength is good, but on examination she has 4-/5 L ankle dorsiflexion and slight foot drop noted on ambulation. At night, she occasionally gets burning sensation in the same distribution where she is numb in the daytime. PAST MEDICAL HISTORY Diagnosis Date - (HFpEF) heart failure with preserved ejection fraction (HCC) 02/20/2016 HFpEF w last EF 50-55% On Torsemide, coreg, hydralazine and imdur at home No signs of acute exacerbation on admission Plan: -Continue home medications - Anasarca 11/29/2013 - Anemia 03/10/2015 Chronic microcytic anemia. Past work up (+ direct darby, elevated Bili, reticulocyte index 2.7%, iron studies pending) most likely AIHA Plasma exchange done Wednesday 01/17 Transfused over the weekend Hb trending up (baseline 7.5) - Antiphospholipid antibody with hypercoagulable state ([facility]) 11/29/2016 Hx of APL syndrome c/b Multiple DVT s/p L Common and External Iliac Stenting + IVC Bifurcation Endograft; c/b PE s/p IVC Filter, R Hepatic V. Thrombosis, and Diffuse Alveolar Hemorrhage. On Warfarin and PLEX (Twice Weekly)? Plan: -Warfarin 5mg qday-holding for planned EGD on 01/11 d/t supra therapeutic INR -Cont. PO Prednisone 10mg MWFS and 5mg TTS -Pantoprazole for GI PPx of Above -Apharesis was supposed to be yesterday, will contact plasmapheresis team on recommendations - Antiphospholipid syndrome (HCC) - Catastrophic Antiphospholipid antibody syndrome 11/09/2013 - Cholelithiasis 01/11/2017 Likely cause of recent pancreatitis. Plan: Per general surgery, no acute surgical intervention at this time. Will await results of EGD. If active gastritis, favor outpatient cholecystectomy. If no active gastritis on EGD, plan for cholecystectomy this admission. - CKD (chronic kidney disease) stage 3, GFR 30-59 ml/min 07/06/2016 Baseline SCr 1.5-1.7 Plan: -renally dose medications -avoid nephrotoxic agents - DVT (deep venous thrombosis) ([facility]) - Elevated CA-125 11/30/2013 244 - Essential hypertension 10/08/2015 Stable on home medications Plan: -continue to monitor on home meds - 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 Bivalirudin to Warfarin bridging - HIT (heparin-induced thrombocytopenia) ([facility]) - Nontoxic multinodular goiter - Obese - Obesity, Class III, BMI >= 40 (morbid obesity) E66.01 10/18/2016 - Peripheral neuropathy 04/14/2016 - Severe protein-calorie malnutrition (HCC) 12/29/2015 PAST SURGICAL HISTORY Procedure Laterality Date - PAST SURGICAL HISTORY OF 2012 IVC thrombectomy - PAST SURGICAL HISTORY OF 2012 b/l iliac v. 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 Social History Main Topics Smoking status: Never Smoker Smokeless status: Never Used Alcohol use: No Drug use: No Sexual activity: Not Currently Prescriptions Prior to Admission: amLODIPine (NORVASC) 5 mg tablet Take 5 mg by mouth twice daily. Hold for SBP <120 Disp: Rfl: ondansetron (ZOFRAN, HYDROCHLORIDE,) 8 mg tablet Take 8 mg by mouth every 8 hours as needed for Nausea/Vomiting. Disp: Rfl: pantoprazole DR (PROTONIX) 40 mg tablet Take 40 mg by mouth daily at bedtime. Disp: Rfl: cetirizine (ZYRTEC) 10 mg tablet Take 10 mg by mouth twice daily. Disp: Rfl: gabapentin (NEURONTIN) 100 mg capsule Take 400mg in the morning Take 300 mg in the afternoon Take 300mg in the evening Patient may change dose based on pain Disp: 360 capsule Rfl: 2 Unknown at Unknown time fondaparinux (ARIXTRA) 2.5 mg/0.5 mL syrg Inject 2.5 mg subcutaneously q 24 HR. Short term medication to cover while warfarin was on hold Disp: Rfl: Unknown at Unknown time torsemide (DEMADEX) 20 mg tablet Take 20 mg by mouth once daily as needed (takes 20-60 mg as needed for chronic edema). Disp: Rfl: Unknown at Unknown time cyclophosphamide (CYTOXAN) 50 mg capsule Take 3 capsules by mouth once daily. Disp: 120 capsule Rfl: 6 Unknown at Unknown time predniSONE (DELTASONE) 5 mg tablet Take 1 tablet by mouth once daily. Disp: 200 tablet Rfl: 4 Unknown at Unknown time warfarin (COUMADIN) 2.5 mg tablet take by mouth as directed in the evening to keep INR between 2.0-3.0 Disp: 60 tablet Rfl: 2 Unknown at Unknown time sulfamethoxazole-trimethoprim (BACTRIM DS) 800-160 mg per tablet Take 1 tablet by mouth every Monday,Monday,Monday. Disp: 36 tablet Rfl: 3 Unknown at Unknown time fluticasone (FLONASE) 50 mcg/actuation nasal spray Use 1-2 Sprays in each nostril once daily as needed for Cold/Allergy Symptoms (starting in allergy season). Disp: Rfl: Unknown at Unknown time senna 8.6 mg tab Take 1 tablet by mouth twice daily as needed. Disp: 60 tablet Rfl: 0 Unknown at Unknown time Current Facility-Administered Medications: hydrALAZINE 100 mg tab(s) (APRESOLINE) 100 mg ORAL/FEEDING TUBE q 8 H hydrocortisone sodium succinate (PF) 100 mg injection (Solu- CORTEF) 100 mg INTRAVENOUS APHERESIS PRN cetirizine 10 mg tab(s) (ZyrTEC) 10 mg ORAL/FEEDING TUBE DAILY docusate sodium 100 mg cap(s) (COLACE) 100 mg ORAL BID fondaparinux 7.5 mg injection (ARIXTRA) 7.5 mg SUBCUTANEOUS q 24 HR predniSONE (DELTASONE) tab(s) 80 mg 80 mg ORAL DAILY pantoprazole DR 40 mg tab(s) (PROTONIX) 40 mg ORAL AT BEDTIME polyethylene glycol 3350 17 g packet (MIRALAX, GLYCOLAX) 17 g ORAL/FEEDING TUBE DAILY gabapentin 300 mg cap(s) (NEURONTIN) 300 mg ORAL/FEEDING TUBE q 8 H HYDROmorphone 2 mg tab(s) (DILAUDID) 2 mg ORAL/FEEDING TUBE q 3 H PRN HYDROmorphone 0.4 mg injection (DILAUDID) 0.4 mg INTRAVENOUS q 4 H PRN sodium citrate 4% 3-6 mL catheter lock 3-6 mL INTRALUMINAL APHERESIS PRN amLODIPine 10 mg tab(s) (NORVASC) 10 mg ORAL/FEEDING TUBE DAILY sulfamethoxazole-trimethoprim 800-160 mg 1 tablet (BACTRIM DS,SEPTRA DS) 1 tablet ORAL MO-WE- sennosides 8.8 mg/5 mL 8.8 mg (SENNA) 8.8 mg ORAL/FEEDING TUBE BID ALLERGIES Allergen Reactions - Rhubarb Rash, Hives - Heparin Other: See Comments Per patient history of HIT - was on angiomax however then took l fondaparinux for bridging to coumadin. - Iv Contrast [Iodine] Other: See Comments shuts kidneys down per patient - Rituximab Other: See Comments Elevated cardiac enzymes COMPLETE REVIEW OF SYSTEMS: GENERAL: Denies fever, chills, night sweats, or changes in weight. HEENT: No changes in hearing or vision, no nose bleeds or other nasal problems RESPIRATORY: see HPI CARDIOVASCULAR: Denies any chest pain with exertion or at rest, palpitations, syncope, or edema. GASTROINTESTINAL: Denies any nausea, vomiting, abdominal pain, heartburn, diarrhea or other changes in bowel habit. Denies melena. MUSCULOSKELETAL: Denies any joint swelling, crepitus, joint pain, or loss of range of motion. Denies back pain. NEURO: see HPI HEMATOLOGY/LYMPHATIC/IMMUNOLOGIC: see HPI ENDOCRINE: Denies any heat or cold intolerance, polyuria or polydipsia. PSYCH: see HPI OBJECTIVE PHYSICAL EXAM: BP 156/77 Pulse 100 Temp 36.9 ?C (98.5 ?F) (Oral) Resp 18 Ht 160 cm (5' 3) Wt 104.2 kg (229 lb 11.5 oz) SpO2 93% BMI 40.69 kg/m2 General Appearance: This is a obese built female HEENT: There are no facial dysmorphic features. SKIN: There is no stigmata for neurocutaneous disorders. Neck: The neck is supple.. Heart: RRR no RGM Lungs: clear to auscultation. Abdomen: The abdomen is benign, soft, flat, non-tender. Extremities: substantial b/l pitting leg edema. Pulses intact, feet warm b/l Neurological: ? Mental Status: Alert, oriented to person, place and time, Follows commands and Speech fluent and appropriate. ? Cranial Nerves: PERRL, visual ceballos intact to confrontation, extraocular movements intact, facial sensation intact, face symmetric, no facial droop or ptosis, hearing intact to finger rub bilaterally, no dysarthria, palate elevate symmetrically, tongue protrudes midline and shoulder shrug intact and symmetric. ? Fundoscopic Exam: Optic discs appear deferred ? Motor:5/5 except for the following 4/5 in R dorsiflexion, and 3+/4- in L dosiflexion ? Reflexes: UE and LE reflexes are equal and reactive. ? Sensation:decreased to soft touch in dorsum of left foot starting just above the ankle crease ? Coordination: Finger-to- nose-finger intact bilaterally and [id number] intact bilaterally. ? Rapid Alternating movements: intact ? Gait: mild b/l foot drop, worse on the L currently DATA: Diagnostic tests reviewed for today's visit: Leg DVT US 10/14/17 IMPRESSION Technically difficult exam due to patient's body habitus. Compared to prior study of 03/16/2017, no significant change. ? RIGHT SIDE - DEEP VEINS Technically limited study. Negative for acute deep vein thrombosis in vessels visualized. Normal color and pulsed Doppler signals noted; however, unable to compress the distal external iliac vein. Chronic deep vein thrombosis in the common femoral vein. Normal color and pulsed Doppler signals noted; however, unable to compress the popliteal vein. Unable to visualize the posterior tibial veins and peroneal veins. Unable to visualize the femoral vein. retrograde flow noted in the distal external iliac and common femoral veins. Multiple collatorals noted throughout the groin. ? RIGHT SIDE - SUPERFICIAL VEINS Unable to visualize the great saphenous vein and small saphenous vein. ? LEFT SIDE - DEEP VEINS Technically limited study. Negative for acute deep vein thrombosis in vessels visualized. Unable to visualize the femoral vein. Unable to visualize the posterior tibial veins and peroneal veins. Turbulent flow noted due to AV Fistula from comon femoral artery to common femoral ?vein. Retrograde flow noted in external iliac, common femoral and popliteal veins. ? LEFT SIDE - SUPERFICIAL VEINS Unable to visualize the small saphenous vein. Component Latest Ref Rng AND Units 10/20/2017 10/21/2017 Protein, Total 6.3 - 8.0 g/dL 5.9 (L) Albumin 3.9 - 4.9 g/dL 3.9 Calcium 8.5 - 10.2 mg/dL 8.9 Bilirubin, Total 0.2 - 1.3 mg/dL 0.4 Alkaline Phosphatase 32 - 117 U/L 45 AST 13 - 35 U/L 15 Glucose 74 - 99 mg/dL 113 (H) BUN 7 - 21 mg/dL 63 (H) Creatinine 0.58 - 0.96 mg/dL 1.48 (H) Sodium 136 - 144 mmol/L 138 Potassium 3.7 - 5.1 mmol/L 3.8 Chloride 97 - 105 mmol/L 93 (L) CO2 22 - 30 mmol/L 30 Anion Gap 9 - 18 mmol/L 15 ALT 7 - 38 U/L 7 eGFR- 51 eGFR-All Other Races . 42 WBC 3.70 - 11.00 k/uL 11.41 (H) RBC 3.90 - 5.20 m/uL 3.10 (L) Hemoglobin 11.5 - 15.5 g/dL 8.7 (L) Hematocrit 36.0 - 46.0 % 28.1 (L) MCV 80.0 - 100.0 fL 90.6 MCH 26.0 - 34.0 pG 28.1 MCHC 30.5 - 36.0 g/dL 31.0 RDW-CV 11.5 - 15.0 % 19.3 (H) Platelet Count 150 - 400 k/uL 187 MPV 9.0 - 12.7 fL 13.2 (H) Absolute nRBC <0.01 k/uL <0.01 Iron 41 - 186 ug/dL 28 (L) TIBC 232 - 386 ug/dL 300 Transferrin Saturation 15 - 57 % 9 (L) PT Sec 9.7 - 13.0 sec 11.1 PT INR 0.9 - 1.3 1.1 Fondaparinux 0.00 mg/L 2.28 (H) Ferritin 14.7 - 205.1 ng/mL 156.0 Transferrin 200 - 360 mg/dL 235 Magnesium 1.7 - 2.3 mg/dL 2.1 Phosphorus 2.7 - 4.8 mg/dL 2.8 ASSESSMENT/PLAN 27 year old female with PMH of antiphospholipid antibody syndrome complicated by diffuse alveolar hemorrhage (5 episodes), catastrophic DVT/PE?needing extensive percutaneous thrombectomy of her IVC and lower extremity veins followed by placement of B/L?iliac venous?stents and an?endograft into her IVC, on long-term AC with coumadin; history of HIT; 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 This was first noticed after she was weaned from sedation and extubated after her most recent episode of diffuse alveolar hemorrhage. Mild foot drop is noted. Decreased sensation to soft touch, and pinprick, but aware of propioception in her toes. And sensation to plantar surface of foot intact. This appears to be a mononeuropathy and differential dx for this includes post-thrombotic neuropathy, compressive neuropathy (as seen in compartment syndrome) from her profound swelling, or steroid induced mononeuropathy. Regardless the cause, to investigate further as to the degree/extent of nerve injury, I recommend an EMG/NCS to be done after 30 days. If it is done sooner, the classic findings of fibrillations will not yet be seen since Wallerian degeneration would not yet have occurred. Regarding treatment, it is recommended that thrombosis be treated, and swelling be reduced if possible. Problem List Items Addressed This Visit (HFpEF) heart failure with preserved ejection fraction (HCC) (Chronic) APS (antiphospholipid syndrome) (HCC) (Chronic) Assessment: severe thrombophilia PLAN: Following hematology recommendations for PLEX No cyclophosphamide -- it is removed by PLEX Keep her anticoagulated if possible. Even in setting of scant hemoptysis. Decrease fondaparinux dose to 7.5 mg based on fondaparinux factor Xa level. CKD (chronic kidney disease) stage 3, GFR 30-59 ml/min (Chronic) History of heparin-induced thrombocytopenia (Chronic) IVC thrombosis (HCC) Pulmonary alveolar hemorrhage Assessment: better now that treatment is under way. Hemorrhage appears to have resolved. PLAN: Continue PLEX and monitoring her condition and her hemoglobin level. Extubated. Recurrent deep vein thrombosis (DVT) (HCC) Renal vein thrombosis (HCC) Other Visit Diagnoses Diffuse pulmonary alveolar hemorrhage Left-sided chest wall pain Peripheral polyneuropathy (HCC) (Chronic) Recommendations: - reduce swelling in legs and treat DVTs if present - could consider repeating DVT US if warranted (ie if leg swelling is worse than it was a week ago) - EMG after 30 days if sx do not improved - PT - follow up with neuromuscular neurology as outpatient - discussed with primary team nurse face to face My impression and recommendations were discussed at length with the patient (and family members, if present). The patient and family (if present) voiced understanding to my recommendations. All questions were answered. The patient was provided with a detailed after visit summary highlighting my impression and recommendations (if seen in outpatient setting). Signed: Lisseth Hinojosa DO Title: Neurology [facility] Date: October 21, 2017 Time: 1:34 PM IMPRESSION/PLAN: This patient is seen in neurologic consultation for left foot drop and new-onset foot numbness. 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 The patient reports that she was extubated after 3-days following the alveolar hemorrhage. The patient noted the numbness and weakness. The patient has chronic edema in the legs and she was given HEATHER bandages. This AM, the weakness is much improved and there is no numbness. She reports a history of compressive neuropathy associated with edema. The patient is content and wishes to find a neurologist for neuropathy should it worsen as an outpatient. The patient would benefit from PT for the foot drop. There does not appear to be a need for AFO. We discussed measures to avoid foot drop in future. She would benefit from outpatient neuromuscular medicine followup. Please call the neurology consultation service, should any questions exist. The total time spent in direct patient care was in excess of 20 minutes. Greater than 50% of the visit was spent counseling the patient about the diagnosis and a detailed discussion regarding assessment and treatment options. I agree with the history, exam and plan of care. Rj Muro DO Staff Neurologist - [facility] PROGRESS Observed: 10/21/2017 Status: COMPLETED Source: [place] 8:51 AM [facility] [place] REPOSITORY HNO ID: [id number] Author: Ranjan Mitchell Service: General Internal Medicine Author Type: Physician Type: Progress Notes Filed: 10/21/2017 2:01 PM Note Text: INPATIENT PROGRESS NOTE SERVICE DATE: 10/21/2017 SERVICE TIME: 8:51 am PRIMARY SERVICE: Vipul Ratliff Subjective INTERVAL HPI: - No overnight events - Complaining of numbness in the dorsal surface of her foot with occasional burning pain - No hemoptysis. Has a dry cough which she relates to allergy and reports that it improved with zyrtec Current hospital medications: hydrocortisone sodium succinate (PF) 100 mg injection (Solu- CORTEF) 100 mg INTRAVENOUS APHERESIS PRN cetirizine 10 mg tab(s) (ZyrTEC) 10 mg ORAL/FEEDING TUBE DAILY docusate sodium 100 mg cap(s) (COLACE) 100 mg ORAL BID fondaparinux 7.5 mg injection (ARIXTRA) 7.5 mg SUBCUTANEOUS q 24 HR predniSONE (DELTASONE) tab(s) 80 mg 80 mg ORAL DAILY hydrALAZINE (APRESOLINE) tab(s) 75 mg 75 mg ORAL/FEEDING TUBE q 8 H torsemide 40 mg tab(s) (DEMADEX) 40 mg ORAL/FEEDING TUBE DAILY pantoprazole DR 40 mg tab(s) (PROTONIX) 40 mg ORAL AT BEDTIME polyethylene glycol 3350 17 g packet (MIRALAX, GLYCOLAX) 17 g ORAL/FEEDING TUBE DAILY gabapentin 300 mg cap(s) (NEURONTIN) 300 mg ORAL/FEEDING TUBE q 8 H HYDROmorphone 2 mg tab(s) (DILAUDID) 2 mg ORAL/FEEDING TUBE q 3 H PRN HYDROmorphone 0.4 mg injection (DILAUDID) 0.4 mg INTRAVENOUS q 4 H PRN sodium citrate 4% 3-6 mL catheter lock 3-6 mL INTRALUMINAL APHERESIS PRN amLODIPine 10 mg tab(s) (NORVASC) 10 mg ORAL/FEEDING TUBE DAILY sulfamethoxazole-trimethoprim 800-160 mg 1 tablet (BACTRIM DS,SEPTRA DS) 1 tablet ORAL MO-WE-FR sennosides 8.8 mg/5 mL 8.8 mg (SENNA) 8.8 mg ORAL/FEEDING TUBE BID Objective PHYSICAL EXAM: BP 136/64 Pulse 94 Temp (Src) 97.6 (Oral) Resp 18 Ht 5' 3 (1.60m) Wt 229 lb 11.5 oz (104.2kg) SpO2 100% BMI 40.70 kg/(m2). Physical Exam Performed GENERAL: Alert, no distress, cooperative SKIN: There is an erythematous rash involving the patient's face and sparing the nasolabial folds HEAD/SINUSES: No significant findings LUNGS: Clear to auscultation with good bilateral air entry CARDIAC: RRR. Normal S1 and S2, grade 2/6 hololsystolic murmur over the left sternal border ABDOMEN: Positive bowel sounds, soft, nontender, nondistended EXTREMITIES: Bilateral lower extremity edema with 1+ pitting. 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 There is absence of sensation to touch over the dorsum of the left foot DATA: Diagnostic tests reviewed for today's visit: Most recent labs and imaging results. 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 The patient initially presented to the MICU for diffuse alveolar hemorrhage that was treated and she was transferred back to the [facility] on 10/19. # Diffuse alveolar hemorrhage - On prednisone and cyclophosphamide at home. - 5 acute episodes of respiratory decline since , - Last admission for hemoptysis was on March 09, 2017. - Presneted on 10/13 with diffuse alveolar hemorrhage to the MICU and was intubated for 6 days - Was started on solumedrol 250 mg Q12h for DAH and dose was decreased to 100mg on 10/17. - Received PLEX on 10/16 and 10/18. - Transferred to [facility] on 10/19 - Steroids decreased to prednisone 80 mg QD on 10/21 - No hemoptysis or pulmonary symptoms PLAN: - Continue prednisone 80 mg QD and will taper according to hematology recs - Increase solumedrol to 250 if hemoptysis recurs and persists. - CBC daily - Follow up with heme on plan for outpatient AC ? #Left foot numbness - The patient reports numbness in the dorsum of her left foot - She had absent sensation to touch on physical exam but good proprioception - Has a history of neuropathy and is on gabapentin 300 mg Q 8 hrs - Concerning for mononeuropathy Plan - Will consider nerve conduction studies - Continue gabapentin 300 mg Q 8 hrs ? # Anti-phospholipid antibody syndrome - Severe disease c/b DAH, catastrophic DVT/PE needing extensive percutaneous thrombectomy of her IVC and lower extremity veins followed by placement of B/L?iliac venous?stents and an?endograft into her IVC in 2011 - On long-term AC with coumadin, given hx of HIT. - Currently off coumadin and on fondaparinux for AC PLAN: - Continue fondaparinux - Follow hematology recs regarding outpatient AC and resuming cyclophosphamide # HTN - On amlodipine 10 mg at home. Was previously on hydralazine. - Started on Hydral 75 mg Q 8 hrs during her stay - On torsemide 40 daily for LE edema and HF. - Still HTN with SBP in 140s-160 Plan: - Continue amlodipine 10 mg QD - Increase hydralazine to 100 mg Q 8 hrs ? # LV dysfunction - EF 47% on 10/13/2017. - On torsemide 40 QD at home. - Net positive since hospital admission - No clinical signs or symptoms of HF PLAN: - Will hold of diuresis in setting on CAPRICE ? ? # CAPRICE on CKD (baseline Cr ~ 1.1-1.3) - Cr today 1.48 Plan: - Monitor BUN/Cr - Hold off diuresis SIGNATURE: Andry Ascencio MD PATIENT NAME: Paloma Cannon DATE: October 21, 2017 TIME: 8:51 AM PAGER: [phone] I have reviewed the progress note documented by the resident, and I personally confirmed/participated in the fernandes components. I evaluated and examined the patient with the resident team and reviewed the relevant data. I have discussed the case and management of the patient's care with the healthcare team, including residents, nursing, catalytic case operator and the patient. Breathing ok DAH resolved Cr up from yesterday but getting volume contraction, @ baseline Her foot numbeness is likely from peripheral neuropathy ? From critical illness vs APLA Would get neuro on board. Home dose diuresis after skipping one day Aim for home soon Ranjan Hilario matson [id number] 10/21/2017 2:01 PM PROTIME Collected: 10/21/2017 Status: F Source: [place] 3:56 AM [facility] [place] REPOSITORY TYPE CODE TESTS RESULT OUT OF RANGE REFERENCE UNITS LAB PSEC 9.7-13.0 sec PT Sec 11.1 LAB INR 0.9-1.3 PT INR 1.1 Result Comment: Vitamin K Antagonist (VKA) Therapeutic Range: INR 2 to 3 (Target INR of 2.5) Note: For patients treated with VKA drugs, such as warfarin, the [employer] 2012 Guideline recommends a therapeutic INR range of 2 to 3 (target INR of 2.5). This recommendation includes high-risk patients with antiphospholipid syndrome with previous arterial or venous thromboembolism, current-generation mechanical or bioprosthetic aortic heart valve replacement. Note: Patients with mechanical aortic valve replacement and additional risk factors for thromboembolic events (atrial fibrillation, previous thromboembolism, LV dysfunction, hypercoagulable conditions) or an older generation mechanical AVR (i.e., ball in-Cage) or any mechanical MVR should have a INR therapeutic range of 2.5 to 3.5 (target INR of 3). Michael PLASENCIA, et al. Chest 2012, 141:7S-47S Diogenes RESENDIZ et al. [facility] 2017, 70: 252-289 Performed By: #### PT, CBC, CMP, MG1, PHOS #### [facility] [address] [place], [place] [address] CBC Collected: 10/21/2017 Status: F Source: [place] 3:56 AM [facility] REPOSITORY TYPE CODE TESTS RESULT OUT OF REFERENCE UNITS RANGE LAB WBC 3.70-11.00 k/uL WBC High 11.41 LAB RBC 3.90-5.20 m/uL Low RBC 3.10 LAB HGB 11.5-15.5 g/dL Low Hemoglobin 8.7 LAB HCT 36.0-46.0 % Low Hematocrit 28.1 LAB MCV 80.0-100.0 fL MCV 90.6 LAB MCH 26.0-34.0 pG MCH 28.1 LAB MCHC 30.5-36.0 g/dL MCHC 31.0 LAB RDWCV 11.5-15.0 % RDW-CV High 19.3 LAB PLTCT 150-400 k/uL Platelet Count 187 LAB MPV 9.0-12.7 fL MPV High 13.2 LAB ABSNUC <0.01 k/uL Absolute nRBC <0.01 Performed By: #### PT, CBC, CMP, MG1, PHOS #### [facility] [address] [place], [place] [address] COMP METABOLIC PANEL Collected: 10/21/2017 Status: F Source: [place] 3:56 AM [facility] REPOSITORY TYPE CODE TESTS RESULT OUT OF REFERENCE UNITS RANGE LAB TP 6.3-8.0 g/dL Low Protein, Total 5.9 LAB ALB 3.9-4.9 g/dL Albumin 3.9 LAB CA 8.5-10.2 mg/dL Calcium, Total 8.9 LAB TBIL 0.2-1.3 mg/dL Bilirubin, Total 0.4 LAB ALKP 32-117 U/L Alkaline Phosphatase 45 LAB AST 13-35 U/L AST 15 LAB GLU 74-99 mg/dL Glucose High 113 Result Comment: The [place] [employer] (ADA) provides guidance for cutoff values for fasting glucose and random glucose. The ADA defines fasting as no caloric intake for at least 8 hours. Fas ting plasma glucose results between 100 to 125 mg/dL indicate increased risk for diabetes (prediabetes). Fasting plasma glucose results greater than or equal to 126 mg/dL meet the criteria for diagnosis of diabetes. In the absence of unequivocal hyperglycemia, results should be confirmed by repeat testing. In a patient with classic symptoms of hyperglycemia or hyperglycemic crisis, random plasma glucose results greater than or equal to 200 mg/dL meet the criteria for diagnosis of diabetes. Reference: Standards of Medical Care in Diabetes 2016, [place] [employer]. Diabetes Care. 2016.39(Suppl 1). LAB BUN 7-21 mg/dL BUN High 63 LAB CRET 0.58-0.96 mg/dL Creatinine High 1.48 LAB NA 136-144 mmol/L Sodium 138 LAB K 3.7-5.1 mmol/L Potassium 3.8 LAB CL 97-105 mmol/L Low Chloride 93 LAB CO2 22-30 mmol/L CO2 30 LAB AGAP 9-18 mmol/L Anion Gap 15 LAB ALT 7-38 U/L ALT 7 LAB GFRAA eGFR- Amer. 51 LAB GFRNAA . eGFR-All Other Races 42 Result Comment: eGFR (Estimated GFR) Units of measure: mL/min/1.73 meters squared eGFR is derived from the reexpressed MDRD Study equation using the following parameters: serum creatinine, age, gender and race. The creatinine assay has been calibrated to be traceable to IDMS. An eGFR <60 mL/min/1.73m2 for >3 months is consistent with chronic kidney disease. Refer to KDOQI guidelines for clinical interpretation. In patients with unstable renal function, e.g. those with acute kidney injury, the eGFR may not accurately reflect actual GFR. Performed By: #### PT, CBC, CMP, MG1, PHOS #### [facility] [address] [place], [place] [address] MAGNESIUM Collected: 10/21/2017 Status: F Source: [place] 3:56 AM [facility] REPOSITORY TYPE CODE TESTS RESULT OUT OF REFERENCE UNITS RANGE LAB MG 1.7-2.3 mg/dL Magnesium 2.1 Performed By: #### PT, CBC, CMP, MG1, PHOS #### [facility] [address] [place], [place] [address] PHOSPHORUS Collected: 10/21/2017 Status: F Source: [place] 3:56 AM [facility] REPOSITORY TYPE CODE TESTS RESULT OUT OF REFERENCE UNITS RANGE LAB PHOS 2.7-4.8 mg/dL Phosphorus 2.8 Performed By: #### PT, CBC, CMP, MG1, PHOS #### [facility] [address] [place] [id number] NURSING PROG Observed: 10/20/2017 Status: COMPLETED Source: [place] 8:22 PM [facility] REPOSITORY HNO ID: [id number] Author: Luca (Jeff) JEFF Gross Service: (none) Author Type: Registered Nurse Type: Nursing Progress Note Filed: 10/20/2017 10:04 PM Note Text: Nursing Progress Note Patient Name: Paloma Cannon Patient Location: [place] [id number] Daily Note: 820PM, patient c/o of new onset left yates pain. Patient stated her right yates went from a numbing feel to a sharp pain, pain is aggravated when she ambulates and is alleviated with elevation. Heat packs and PO dilaudid 2mg were given to patient. Team paged and notified. Will continue to monitor patient. This note was completed by: Luca Gross RN FONDAPARINUX ASSAY Collected: 10/20/2017 Status: F Source: [place] 3:58 PM [facility] REPOSITORY TYPE CODE TESTS RESULT OUT OF REFERENCE UNITS RANGE LAB JEF 0.00 mg/L Fondaparinux High 2.28 Result Comment: (NOTE) In patients undergoing treatment with fondaparinux sodium injection 2.5 mg, once daily, the peak steady-state plasma concentration is, on average, 0.39 to 0.50 mg/L and is reached approximately 3 hours post-dose. In these patients, the minimum steady-state plasma concentration is 0.14 to 0.19 mg/L. In patients with symptomatic deep vein thrombosis and pulmonary embolism undergoing treatment with fondaparinux sodium injection 5 mg (body weight <50 kg), 7.5 mg (body weight 50 to 100 kg), and 10 mg (body weight >100 kg) once daily, the lsvi-fkhdjy-mnivoliv doses provide similar mean steady-state peaks and minimum plasma concentrations across all body weight categories. The mean peak steady-state plasma concentration is in the range of 1.20 to 1.26 mg/L. In these patients, the mean minimum steady-state plasma concentration is in the range of 0.46 to 0.62 mg/L. (Prescribing information for Arixtra from [employer], April 2010) Note: The fondaparinux assay is performed by an anti-Xa methodology and that comcomitant therapy with unfractionated or low molecular weight heparin could falsely elevate the fondaparinux levels. Performed By: #### FONDXA #### [facility] [address] [place] [address] CASE MANAGEM Observed: 10/20/2017 Status: COMPLETED Source: [place] 3:22 PM [facility] REPOSITORY HNO ID: [id number] Author: Kalpesh Hoang (Sw) Service: Care Management Author Type: Toolmaker Helper Type: Care Mgt Progress Note Filed: 10/20/2017 4:49 PM Note Text: CARE MANAGEMENT PROGRESS NOTE SERVICE DATE: 10/20/2017 SERVICE TIME: 1609 LOS: 7 days Needs Prior to Discharge: Desat Study Pt needs desat study as she is currently on 2L O2 via nasal cannula. Pt otherwise recommended for DC home with outpatient PT. Pt has no firm DC date at this time, but may DC over the weekend pending medical readiness and setup for any O2 needs. For any weekend questions or needs, contact pager #[phone]. SIGNATURE: JUAN PABLO Glover PATIENT NAME: Paloma Cannon DATE: October 20, 2017 TIME: 3:22 PM PAGER/CONTACT #: [phone] THERAPY NT Observed: 10/20/2017 Status: COMPLETED Source: [place] 10:56 AM [facility] REPOSITORY HNO ID: [id number] Author: Renetta SanchezPtDevonte Monroy Service: Physical Therapy Author Type: Physical Therapist Type: Therapy (PT/OT/Speech/Resp) Filed: 10/20/2017 11:09 AM Note Text: Physical Therapy Evaluation SERVICE DATE: 10/20/2017 SERVICE TIME: 0955 to 1040 ROOM: [place] [address] Recommended Discharge Disposition: Outpatient Physical Therapy Recommended Discharge Equipment: To Be Determined PT Recommendations to Nursing: Ambulate with device;To bathroom;With assist of 1 person Device: Wheeled Walker PT 6 Clicks Score: 20 ASSESSMENT : Patient is a 27 y/o female who presents with impaired sensation, edema, impaired balance, impaired strength ( L > R), decreased activity tolerance, and overall reduced functional mobility since being admitted to the hospital. Patient currently needs CGA with transfers and ambulation without use of AD due to unsteadiness. Patient demonstrated increased stability with use of WW and was able to progress to SBA. Patient fatigues very quickly with mobility and became tachycardic with prolonged standing. Patient's O2 sat dropped to 86% with prolonged standing on 2 L via NC however patient was able to recover with seated rest break. Patient will benefit from skilled PT while in house to address functional impairments and to maximize safety/independence with all functional mobility for safe home going. Anticipate patient will be safe to discharge home with assist from family. Recommend patient to follow up with outpatient PT to address strength/balance deficits. Patient Disposition at Start of Session: Supine in Bed Patient Disposition at End of Session: Supine in Bed;Call Wagoner in Reach Tolerance Limited By Fatigue Physical Therapy Problem List: Safety Deficits;Decreased Activity Tolerance;Decreased Strength;Functional Mobility Impairment;Balance Impaired;Sensory Deficit;Edema Patient /Caregiver Goals: Go Home Goals for Plan of Care: Able to perform HEP with: Independent Transfer supine to/from sit with: Modified Independent Transfer sit to/from stand with: Modified Independent Ambulate with: Supervision Distance: 150' Device: Other: See Comment (LRAD) Rehab Potential: Good PLAN: Treatment Frequency (times per week): 2 (+ 2 PRN visits/wk) Current admission Treatment Interventions: Education;Energy Conservation Training;Joint Mobility;Strengthening;Functional Mobility Training;Balance Training;Neuromuscular Re-education Plan of Care developed with: Patient TREATMENT INTERVENTIONS: Therapy Diagnosis: Reduced mobility-other;Muscle Weakness (generalized);Unsteadiness on feet Interventions Provided: Evaluation;Therapeutic Activity (24293);Therapeutic Exercise (94010) $ Evaluation-Moderate (75683) Billed Units: 1 unit Therapeutic Exercise (98980) Treatment Minutes: 10 1 unit Skilled Intervention(s): -Instructed pt in the following standing LE exercises in order to increase LE strength, mobility, flexibility for increased independence with transfers and ambulation. Pt required B UE support via WW for stability. PT providing SBA for safety. Verbal/tactile/visual cues provided for proper technique, optimal alignment, and pacing with exercises. Pt completed 10 reps of each exercise. Seated rest breaks administered due to patient becoming tachy with exercises. Cues four pursed lip breathing to promote relaxation. -Hip flexion -Hip abduction -Hip extension -HS curls -Heel raises Therapeutic Activity (44394) Treatment Minutes: 17 1 unit Skilled Intervention(s): -Education provided re: PT role in hospital, PT role in d/c planning with d/c recommendation of O/p PT to address strength/balance deficits, importance of mobility while in hospital, risks associated with immobility, and fall prevention. -Verbal cues for proper UE placement when performing transfers with use of AD for increased safety. -Pt required close monitoring of vitals in order to safely dose/presribe activity. Verbal cues provided for pursed lip breathing and relaxation techniques with all mobility to reduce dyspnea and to lower HR to WNL. -Educated pt on using WW for ambulation at this time for increased stability secondary to balance deficits. Total Timed Code Treatment Minutes: 27 Total Treatment Time (minutes): 45 FUNCTIONAL G CODE: PT 6 Clicks Score: 20 (10/20/17954) Mobility: Walking and Moving Around Current Status (G8978): CJ (10/20/17954) Mobility: Walking and Moving Around Goal Status (G8979): CI (10/20/17954) Based on clinical assessment and the score on the 6 Clicks Functional Assessment Tool, the G code and corresponding severity modifiers are documented above. 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 ? Patient Report: I have been waiting for you Home Environment Patient Lives With: Significant Other Assistance Available: time study analyst Entry To Home: No Stairs Number Of Stairs To Bed/Bath: 0 Tub/Shower Type: grab bars in shower and around toilet Equipment Owned: Wheelchair Prior Functional Level: Within Functional Limits OBJECTIVE: Mini Cog Score: 5 (10/20/17954) CURRENT FUNCTIONAL STATUS: Current Functional Mobility Assist Level Additional Information Rolling Supine to Sit Supervision Sit to Supine Supervision Scooting Sit to Stand Contact Guard Assistance Stand to Sit Contact Guard Assistance Bed to Chair Toilet/Commode Gait Contact Guard Assistance (SBA with WW) Gait Device: None;Wheeled Walker Gait Distance (feet): 65' Stairs (pt does not have to do stairs to go home safely) Curb Step Car Transfer Gait Deviations Left Lower Extremity: Other: See comment (decreased foot clearance on L LE) General Gait Deviations: Delmy decreased;Step length decreased;Wide base of support Balance: Static Sitting;Dynamic Sitting;Static Standing;Dynamic Standing Static Sitting Balance: Modified Independent Dynamic Sitting Balance: Modified Independent Static Standing Balance: Stand By Assistance Dynamic Standing Balance: Contact Guard Assistance Please see discipline specific clinical documentation flowsheet for complete details for this therapy evaluation/treatment. SIGNATURE: Renetta Monroy PT PATIENT NAME: Paloma Cannon DATE: October 20, 2017 TIME: 10:57 AM PAGER/CONTACT #: [phone] PROTIME Collected: 10/20/2017 Status: F Source: [place] 4:15 AM [facility] REPOSITORY TYPE CODE TESTS RESULT OUT OF RANGE REFERENCE UNITS LAB PSEC 9.7-13.0 sec PT Sec 11.5 LAB INR 0.9-1.3 PT INR 1.1 Result Comment: Vitamin K Antagonist (VKA) Therapeutic Range: INR 2 to 3 (Target INR of 2.5) Note: For patients treated with VKA drugs, such as warfarin, the [place] [employer] 2012 Guideline recommends a therapeutic INR range of 2 to 3 (target INR of 2.5). This recommendation includes high-risk patients with antiphospholipid syndrome with previous arterial or venous thromboembolism, current-generation mechanical or bioprosthetic aortic heart valve replacement. Note: Patients with mechanical aortic valve replacement and additional risk factors for thromboembolic events (atrial fibrillation, previous thromboembolism, LV dysfunction, hypercoagulable conditions) or an older generation mechanical AVR (i.e., ball in-Cage) or any mechanical MVR should have a INR therapeutic range of 2.5 to 3.5 (target INR of 3). Michael PLASENCIA, et al. Chest 2012, 141:7S-47S Diogenes RESENDIZ et al. [facility] 2017, 70: 252-289 Performed By: #### PT, CBC, IRON, CMP, MG1, PHOS, TRANSF, FERR #### [place] [id number] [place], [place] [address] CBC Collected: 10/20/2017 Status: F Source: [place] 4:15 AM [facility] REPOSITORY TYPE CODE TESTS RESULT OUT OF REFERENCE UNITS RANGE LAB WBC 3.70-11.00 k/uL WBC 9.46 LAB RBC 3.90-5.20 m/uL Low RBC 3.22 LAB HGB 11.5-15.5 g/dL Low Hemoglobin 8.9 LAB HCT 36.0-46.0 % Low Hematocrit 29.1 LAB MCV 80.0-100.0 fL MCV 90.4 LAB MCH 26.0-34.0 pG MCH 27.6 LAB MCHC 30.5-36.0 g/dL MCHC 30.6 LAB RDWCV 11.5-15.0 % RDW-CV High 19.6 LAB PLTCT 150-400 k/uL Low Platelet Count 113 Result Comment: Result checked and verified No clot detected. LAB MPV 9.0-12.7 fL MPV 12.7 LAB ABSNUC <0.01 k/uL Absolute nRBC <0.01 Performed By: #### PT, CBC, IRON, CMP, MG1, PHOS, TRANSF, FERR #### [place] [address] IRON AND TIBC Collected: 10/20/2017 Status: F Source: [place] 4:15 AM [facility] REPOSITORY TYPE CODE TESTS RESULT OUT OF REFERENCE UNITS RANGE LAB IRN 41-186 ug/dL Low Iron 28 LAB TIBC 232-386 ug/dL TIBC 300 LAB SAT 15-57 % Low Transferrin Saturatn 9 Performed By: #### PT, CBC, IRON, CMP, MG1, PHOS, TRANSF, FERR #### [address] [address] COMP METABOLIC PANEL Collected: 10/20/2017 Status: F Source: [place] 4:15 AM [facility] REPOSITORY TYPE CODE TESTS RESULT OUT OF REFERENCE UNITS RANGE LAB TP 6.3-8.0 g/dL Low Protein, Total 5.7 LAB ALB 3.9-4.9 g/dL Albumin 3.9 LAB CA 8.5-10.2 mg/dL Calcium, Total 8.5 LAB TBIL 0.2-1.3 mg/dL Bilirubin, Total 0.4 LAB ALKP 32-117 U/L Alkaline Phosphatase 44 LAB AST 13-35 U/L AST 13 LAB GLU 74-99 mg/dL Glucose High 202 Result Comment: The [place] [employer] (ADA) provides guidance for cutoff values for fasting glucose and random glucose. The ADA defines fasting as no caloric intake for at least 8 hours. Fas ting plasma glucose results between 100 to 125 mg/dL indicate increased risk for diabetes (prediabetes). Fasting plasma glucose results greater than or equal to 126 mg/dL meet the criteria for diagnosis of diabetes. In the absence of unequivocal hyperglycemia, results should be confirmed by repeat testing. In a patient with classic symptoms of hyperglycemia or hyperglycemic crisis, random plasma glucose results greater than or equal to 200 mg/dL meet the criteria for diagnosis of diabetes. Reference: Standards of Medical Care in Diabetes 2016, [place] [employer]. Diabetes Care. 2016.39(Suppl 1). LAB BUN 7-21 mg/dL BUN High 53 LAB CRET 0.58-0.96 mg/dL Creatinine High 1.39 LAB NA 136-144 mmol/L Sodium 136 LAB K 3.7-5.1 mmol/L Potassium 3.8 LAB CL 97-105 mmol/L Low Chloride 93 LAB CO2 22-30 mmol/L CO2 30 LAB AGAP 9-18 mmol/L Anion Gap 13 LAB ALT 7-38 U/L ALT 8 LAB GFRAA eGFR- Amer. 55 LAB GFRNAA . eGFR-All Other Races 45 Result Comment: eGFR (Estimated GFR) Units of measure: mL/min/1.73 meters squared eGFR is derived from the reexpressed MDRD Study equation using the following parameters: serum creatinine, age, gender and race. The creatinine assay has been calibrated to be traceable to IDMS. An eGFR <60 mL/min/1.73m2 for >3 months is consistent with chronic kidney disease. Refer to KDOQI guidelines for clinical interpretation. In patients with unstable renal function, e.g. those with acute kidney injury, the eGFR may not accurately reflect actual GFR. Performed By: #### PT, CBC, IRON, CMP, MG1, PHOS, TRANSF, FERR #### [facility] [address] [place] [phone] MAGNESIUM Collected: 10/20/2017 Status: F Source: [place] 4:15 AM [facility] REPOSITORY TYPE CODE TESTS RESULT OUT OF REFERENCE UNITS RANGE LAB MG 1.7-2.3 mg/dL Magnesium 2.1 Performed By: #### PT, CBC, IRON, CMP, MG1, PHOS, TRANSF, FERR #### [place] [address] PHOSPHORUS Collected: 10/20/2017 Status: F Source: [place] 4:15 AM [facility] REPOSITORY TYPE CODE TESTS RESULT OUT OF REFERENCE UNITS RANGE LAB PHOS 2.7-4.8 mg/dL Phosphorus 3.2 Performed By: #### PT, CBC, IRON, CMP, MG1, PHOS, TRANSF, FERR #### [place] [phone] TRANSFERRIN Collected: 10/20/2017 Status: F Source: [place] 4:15 AM [facility] REPOSITORY TYPE CODE TESTS RESULT OUT OF REFERENCE UNITS RANGE LAB TRANSF 200-360 mg/dL Transferrin 235 Performed By: #### PT, CBC, IRON, CMP, MG1, PHOS, TRANSF, FERR #### [place] [phone] FERRITIN Collected: 10/20/2017 Status: F Source: [place] 4:15 AM [facility] REPOSITORY TYPE CODE TESTS RESULT OUT OF REFERENCE UNITS RANGE LAB FERR 14.7-205.1 ng/mL Ferritin 156.0 Performed By: #### PT, CBC, IRON, CMP, MG1, PHOS, TRANSF, FERR #### [place] [address] HISTORY PHYSICAL Observed: 10/19/2017 Status: COMPLETED Source: [place] 9:19 PM [facility] REPOSITORY HNO ID: [id number] Author: Ranjan Mitchell Service: General Internal Medicine Author Type: Physician Type: HANDP Filed: 10/20/2017 2:40 PM Note Text: HISTORY AND PHYSICAL EXAMINATION TRANSFER OF CARE FROM [facility] TO [facility] SERVICE DATE: 10/19/2017 SERVICE TIME: 09.21 PM PRIMARY CARE PHYSICIAN: PEYTON ROGERS MD Subjective CHIEF COMPLAINT: DAH HPI: This is a 27 year old female who presented with DAH. Past medical hx is significant for: - Anti-phospholipid antibody syndrome c/b DAH, catastrophic DVT/PE needing extensive percutaneous thrombectomy of her IVC and lower extremity veins followed by placement of B/L iliac venous stents and an endograft into her IVC, on long-term AC with coumadin. - DAH (on prednisone and cyclophosphamide, 5 acute episodes of respiratory decline since , last admission for hemoptysis was on March 09, 2017. ) - HIT - CKD 3, secondary to renal vein thrombosis and contrast induced nephropathy - HTN - HFrEF - Peripheral neutropathy - Post phlebitic syndrome She initially presented to [facility] ED with hemoptysis/SOB - found to be in increased work of breathing and low sats - was intubated (10/13/17). Initial labs: Hgb 10.1, WBC 17, INR 2.1 (last dose of Warfarin 5 mg on 10/12/17 evening), Cr 1.32, K 5.0, Bicarb 18, AG 18, Lactate 12.4. Initial ABG on 100% FiO2/PEEP 14: 7.29, 44,79. Was transferred to [facility] MICU for further management of DAH on 10/13. MICU COURSE: 10/13: Admitted to MICU. Intubated. 10/14: weaning to 2mcg Levo, CXR improved, started on ppx fondaparinux 10/15: Off NE drip. Off paralytics. Weaning off sedation but gets agitated. INR 2.0 this morning. Cr increased to 1.82. 10/16: PLEX today. Extubated after rounds. Doing well off ventilator. 10/17: Blood-tinged sputum, left-sided chest pain and increased oxygen requirement. For her, could be PE, but no other plan than to anticoagulate anyway. Kept fondaparinux at 7.5 dose. Hematology aware. Keep in MICU. 10/18: No hemoptysis. Still having left sided chest pain. Not pleuritic or tender. Oxygen requirement improved--on RA. Splenic ultrasound negative. PLEX today 10/19: Left sided chest pain improving. Hematology saw her. She was started on Solumedrol 250 mg Q12h for DAH and dose was decreased to 100mg on 10/17. She received PLEX on 10/16 and 10/18. Since extubation, she had 4 episodes of hemoptysis. Hb remained stable. Last episode was 2 days ago. Hematology recommended increasing solumedrol back to 250 if hemoptysis persists. B/l LE Us did not show any acute DVT, +for R chronic common femoral DVT. She was started on prophylactic fondaparinux on 10/14 and then transitioned to full dose on 10/15. On 10/17, patient started complaining of L sided lower chest pain located laterally. . Pain is constant, 02/16, nonpleuritic, reproducible on palpation. Cardiac enzymes and EKG were unremarkable. US of the spleen did not show any acute splenic infarct, borderline enlargement of the spleen consistent with prior CT in 01/2017. On arrival to the floor, she is complaining of L sided chest pain. Reports her pain is improving. She is also complaining of L dorsal foot numbness which started 2 days ago. States it is improving with diuresis. She was diuresed with IV lasix 40 on 10/17, 80 on 10/18, 40 on 10/19. PAST MEDICAL HISTORY Diagnosis Date - (HFpEF) heart failure with preserved ejection fraction (HCC) 02/20/2016 HFpEF w last EF 50-55% On Torsemide, coreg, hydralazine and imdur at home No signs of acute exacerbation on admission Plan: -Continue home medications - Anasarca 11/29/2013 - Anemia 03/10/2015 Chronic microcytic anemia. 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 Thrombosis, and Diffuse Alveolar Hemorrhage. On Warfarin and PLEX (Twice Weekly)? Plan: -Warfarin 5mg qday-holding for planned EGD on 01/11 d/t supra therapeutic INR -Cont. PO Prednisone 10mg MWFS and 5mg TTS -Pantoprazole for GI PPx of Above -Apharesis was supposed to be yesterday, will contact plasmapheresis team on recommendations - Antiphospholipid syndrome (HCC) - Catastrophic Antiphospholipid antibody syndrome 11/09/2013 - Cholelithiasis 01/11/2017 Likely cause of recent pancreatitis. Plan: Per general surgery, no acute surgical intervention at this time. Will await results of EGD. If active gastritis, favor outpatient cholecystectomy. If no active gastritis on EGD, plan for cholecystectomy this admission. - CKD (chronic kidney disease) stage 3, GFR 30-59 ml/min 07/06/2016 Baseline SCr 1.5-1.7 Plan: -renally dose medications -avoid nephrotoxic agents - DVT (deep venous thrombosis) ([facility]) - Elevated CA-125 11/30/2013 244 - Essential hypertension 10/08/2015 Stable on home medications Plan: -continue to monitor on home meds - 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 Bivalirudin to Warfarin bridging - HIT (heparin-induced thrombocytopenia) ([facility]) - Nontoxic multinodular goiter - Obese - Obesity, Class III, BMI >= 40 (morbid obesity) E66.01 10/18/2016 - Peripheral neuropathy 04/14/2016 - Severe protein-calorie malnutrition (HCC) 12/29/2015 PAST SURGICAL HISTORY Procedure Laterality Date - PAST SURGICAL HISTORY OF 2012 IVC thrombectomy - PAST SURGICAL HISTORY OF 2012 b/l iliac v. 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 - PAST SURGICAL HISTORY OF Adenoidectomy - PICC LINE INSERT/CONSULT 11/29/2013 - PICC LINE INSERT/CONSULT 03/10/2015 - PICC LINE INSERT/CONSULT 02/20/2016 FAMILY HISTORY Problem Relation Age of Onset - Breast Cancer Mother spine BRCA neg - Ovarian cyst [OTHER] Mother - ovarian cyst [OTHER] Sister - Thyroid No Family History Social History Substance Use Topics - Smoking status: Never Smoker - Smokeless tobacco: Never Used - Alcohol use No Prescriptions Prior to Admission: amLODIPine (NORVASC) 5 mg tablet Take 5 mg by mouth twice daily. Hold for SBP <120 Disp: Rfl: ondansetron (ZOFRAN, HYDROCHLORIDE,) 8 mg tablet Take 8 mg by mouth every 8 hours as needed for Nausea/Vomiting. Disp: Rfl: pantoprazole DR (PROTONIX) 40 mg tablet Take 40 mg by mouth daily at bedtime. Disp: Rfl: cetirizine (ZYRTEC) 10 mg tablet Take 10 mg by mouth twice daily. Disp: Rfl: gabapentin (NEURONTIN) 100 mg capsule Take 400mg in the morning Take 300 mg in the afternoon Take 300mg in the evening Patient may change dose based on pain Disp: 360 capsule Rfl: 2 Unknown at Unknown time fondaparinux (ARIXTRA) 2.5 mg/0.5 mL syrg Inject 2.5 mg subcutaneously q 24 HR. Short term medication to cover while warfarin was on hold Disp: Rfl: Unknown at Unknown time torsemide (DEMADEX) 20 mg tablet Take 20 mg by mouth once daily as needed (takes 20-60 mg as needed for chronic edema). Disp: Rfl: Unknown at Unknown time cyclophosphamide (CYTOXAN) 50 mg capsule Take 3 capsules by mouth once daily. Disp: 120 capsule Rfl: 6 Unknown at Unknown time predniSONE (DELTASONE) 5 mg tablet Take 1 tablet by mouth once daily. Disp: 200 tablet Rfl: 4 Unknown at Unknown time warfarin (COUMADIN) 2.5 mg tablet take by mouth as directed in the evening to keep INR between 2.0-3.0 Disp: 60 tablet Rfl: 2 Unknown at Unknown time sulfamethoxazole-trimethoprim (BACTRIM DS) 800-160 mg per tablet Take 1 tablet by mouth every Monday,Monday,Monday. Disp: 36 tablet Rfl: 3 Unknown at Unknown time fluticasone (FLONASE) 50 mcg/actuation nasal spray Use 1-2 Sprays in each nostril once daily as needed for Cold/Allergy Symptoms (starting in allergy season). Disp: Rfl: Unknown at Unknown time senna 8.6 mg tab Take 1 tablet by mouth twice daily as needed. Disp: 60 tablet Rfl: 0 Unknown at Unknown time ALLERGIES Allergen Reactions - Rhubarb Rash, Hives - Heparin Other: See Comments Per patient history of HIT - was on angiomax however then took l fondaparinux for bridging to coumadin. - Iv Contrast [Iodine] Other: See Comments shuts kidneys down per patient - Rituximab Other: See Comments Elevated cardiac enzymes COMPLETE REVIEW OF SYSTEMS: GENERAL: No weight loss, malaise or fevers NECK: Negative for lumps, goiter, pain and significant neck swelling CARDIOVASCULAR: Negative for chest pain, leg swelling, hypertension, CHF or palpitations GI: No nausea, vomiting, or diarrhea : No history of dysuria, frequency or incontinence MUSCULOSKELETAL: Negative for joint pain or swelling, back pain or muscle pain PSYCH: Negative for sleep disturbance, mood disorder and recent psychosocial stressors ENDOCRINE: Negative for cold or heat intolerance, polyuria, polydipsia and goiter NEURO: No history of headaches, syncope, paralysis, seizures or tremors Objective PHYSICAL EXAM: Physical Exam Performed: GENERAL: Alert, no distress, cooperative, obese HEAD/SINUSES: No significant findings EYES: PERRLA, EOMI OROPHARYNX: Lips, mucosa, and tongue normal. Teeth and gums normal. Oropharynx normal. NECK: No jugulovenous distention, No carotid bruits, Supple LUNGS: Lungs clear to auscultation, Good diaphragmatic excursion CARDIAC: Normal S1 and S2; no rubs, murmurs, or gallops ABDOMEN: Abdomen soft, non-tender, BS normal, No masses or organomegaly EXTREMITIES: Bilaterally red below mid-calf level, 1+ pitting edema, sensations decreased in L forsal foot and anterior ankle PULSES: 2+ radial, 2+ carotid BP 147/63 Pulse 91 Temp (Src) 97.8 (Oral) Resp 20 Ht 5' 3 (1.60m) Wt 238 lb 12.1 oz (108.3kg) SpO2 96% BMI 42.30 kg/(m2). DATA: Diagnostic tests reviewed for today's visit: Most recent labs and imaging results. Assessment/Plan # Diffuse alveolar hemorrhage On prednisone and cyclophosphamide at home. 5 acute episodes of respiratory decline since , Last admission for hemoptysis was on March 09, 2017. Was intubated for 3 days in MICU. Currently on RA. On 2L NC at night. Was started on solumedrol 250 mg Q12h for DAH and dose was decreased to 100mg on 10/17. Received PLEX on 10/16 and 10/18. Per heme note from 10/18, continue current dose of steroids. AC resumed with fondaparinux. No further hemoptysis on AC. CXR showing improvement after Rx with steroids PLAN: - Continue solumedrol 100 mg Q12h, pending further recommendations from hematology. - Increase solumedrol to 250 if hemoptysis recurs and persists. - Touch base with heme about transition to PO steroids and resuming cyclophosphamide. - 2L NC at night. - Continuous pulse ox. - Monitor for signs of bleeding. - CBC daily, unless further hemoptysis. - Monitor improvement with CXR. # Anti-phospholipid antibody syndrome Severe disease, C/b DAH, Catastrophic DVT/PE needing extensive percutaneous thrombectomy of her IVC and lower extremity veins followed by placement of B/L iliac venous stents and an endograft into her IVC in 2011, On long-term AC with coumadin, given hx of HIT. AC resumed with fondaparinux. INR 1.1, off of coumadin. Follows with Dr. Galicia outpatient. PLAN: - Continue fondaparinux, pending heme recs for bridge to coumadin. - Check fondaparinux level at 3.00 pm tomorrow. - Touch base with heme about resuming cyclophosphamide. # HTN On amlodipine 10 mg at home. Was previously on hydralazine. States home bp well-controlled Has been hypertensive with SBP 140-160s in MICU. Started on Hydral 75 mg. On torsemide 40 daily for LE edema and HF. Plan: - Continue amlodipine, hydralazine, torsemide # HFrEF EF 47% on 10/13/2017. On torsemide 40 QD at home. Reports baseline weight 216 lbs, current weight 237 lbs. Was diuresed with IV lasix 40 on 10/17, 80 on 10/18, 40 on 10/19. Net positive since hospital admission. PLAN: - Continue torsemide 40 mg daily. - Dose lasix daily based on net output. - lasix IV 40 mg ordered for 10/20. # Foot numbness C/o L dorsal foot numbness extending to her ankle Hx of neuropathy. On gabapentin 300 mg Q8h. States has previously not had neuropathy in L foot. Reports improvement with diuresis and improvement in leg swelling. Numbness likely from neuropathy. PLAN: - Continue with gabapentin 300 mg Q8h # CAPRICE on CKD (baseline Cr ~ 1.1-1.3) - Cr 1.32 upon presentation. - Resolved now with Cr 1.19. Plan: - Monitor BUN/Cr # Chest pain C/o L sided chest pain, started 3 days ago. Reports improvement since onset. Nonpositional, nonpleuritic, reproducible on palpation. Spleen unremarkable on imaging. Low suspicion for ACS. EKG and trops negative in MICU on 10/17. PLAN: - Repeat EKG SIGNATURE: Lisette Verdugo MD PATIENT NAME: Paloma Cannon DATE: October 19, 2017 TIME: 9:19 PM PAGER/CONTACT #: [phone] Please see resident note above. Agree with above. Full addendum to this MICU transfer to follow by Staff Dr. Mitchell. Elida Erickson, Internal Medicine Resident Pager [phone] 10/20/2017 12:06 PM I have reviewed the progress note documented by the resident, and I personally confirmed/participated in the fernandes components. I evaluated and examined the patient with the resident team and reviewed the relevant data. I have discussed the case and management of the patient's care with the healthcare team, including residents, nursing, catalytic case operator and the patient. Breathing ok No pulm crackles, and sats are ok Her legs are bigger had prior R peripheral neuropathy But endorses new symptoms on L side, Will reassess after diuresis. No other focal neuro symptoms to consider stroke Arixtra decreased to 7.5 based on discussion with hematology staff and steroids changed to PO 80 mg Ranjan matson [id number] 10/20/2017 2:40 PM NURSING PROG Observed: 10/19/2017 Status: COMPLETED Source: [place] 7:40 PM [facility] REPOSITORY O ID: [id number] Author: Emilie (Rn) JEFF Robles Service: (none) Author Type: Registered Nurse Type: Nursing Progress Note Filed: 10/19/2017 7:52 PM Note Text: Nursing Progress Note Patient Name: Paloma Cannon Patient Location: 91 017/G091 Transfer Note: Patient transferred into room/unit G91-17 in stable condition. Actions taken: No futher actions taken at this time. Will continue to monitor and check with patient. Patient belongings with patient. Patient oriented to room and nursing call button. This note was completed by: Emilie Robles RN NURSING PROG Observed: 10/19/2017 Status: COMPLETED Source: [place] 6:37 PM [facility] REPOSITORY HNO ID: [id number] Author: Opal SanchezRn) JEFF Eric Service: Nursing Author Type: Registered Nurse Type: Nursing Progress Note Filed: 10/19/2017 7:37 PM Note Text: Nursing Progress Note Patient Name: Paloma Cannon Patient Location: [place] [address]/[facility] [place] [facility]-06 Transfer Note: Report called to Lisbet Sanchez ( accepting nursse) on G91. Patient to be transferred to [facility] and is in stable condition. The patient's spouse was called and given the number to 1 unit and informed of the transfer. His questions were answered. Belongings sent with her include: glasses, glasses case, laptop computer and charging cord, cell phone and charging cord, hat, backpack and body spray. The patient has transfer orders and the note of sign out to GIOKO team is completed. At 19:28pm transferred in stable condition to [facility] with all belongings. This note was completed by: Opal Eric RN PLAN OF CARE Observed: 10/19/2017 Status: COMPLETED Source: [place] 5:03 PM [facility] REPOSITORY HNO ID: [id number] Author: Giovanny Blanco Service: Critical Care Author Type: Resident Type: Plan of Care Filed: 10/19/2017 5:03 PM Note Text: Patient to be transferred out of MICU to [facility]. Signout given to GIOKO. Giovanny Blanco MD October 19, 2017 5:03 PM CASE MANAGEM Observed: 10/19/2017 Status: COMPLETED Source: [place] 12:41 PM [facility] REPOSITORY HNO ID: [id number] Author: Radha SanchezRnDevonte Hope RN Service: Case Management Author Type: Registered Nurse Type: Care Mgt Progress Note Filed: 10/19/2017 12:42 PM Note Text: CARE MANAGEMENT PROGRESS NOTE SERVICE DATE: 10/19/2017 SERVICE TIME: 12:41 PM LOS: 6 days Needs Prior to Discharge: To Be Determined Anticipate transfer to [facility]. D/C needs and date TBD. SIGNATURE: Radha Hope RN PATIENT NAME: Paloma Cannon DATE: October 19, 2017 TIME: 12:41 PM PAGER/CONTACT #: [phone] CBC Collected: 10/19/2017 Status: F Source: [place] 12:34 PM [facility] REPOSITORY TYPE CODE TESTS RESULT OUT OF REFERENCE UNITS RANGE LAB WBC 3.70-11.00 k/uL WBC 10.58 LAB RBC 3.90-5.20 m/uL Low RBC 3.53 LAB HGB 11.5-15.5 g/dL Low Hemoglobin 9.8 LAB HCT 36.0-46.0 % Low Hematocrit 31.0 LAB MCV 80.0-100.0 fL MCV 87.8 LAB MCH 26.0-34.0 pG MCH 27.8 LAB MCHC 30.5-36.0 g/dL MCHC 31.6 LAB RDWCV 11.5-15.0 % RDW-CV High 19.3 LAB PLTCT 150-400 k/uL Low Platelet Count 115 Result Comment: Result checked and verified No clot detected. LAB MPV 9.0-12.7 fL MPV <<DO NOT REPORT>> LAB ABSNUC <0.01 k/uL <0.01 Absolute nRBC Performed By: #### CBC #### [facility] [address], [place] [address] PROGRESS Observed: 10/19/2017 Status: COMPLETED Source: [place] 11:19 AM [facility] REPOSITORY HNO ID: [id number] Author: Stephane Austin Service: Critical Care Author Type: Physician Type: Progress Notes Filed: 10/19/2017 1:24 PM Note Text: MICU PROGRESS NOTE WITH [facility] Primary Service: [place] Team SERVICE DATE: 10/19/2017 SERVICE TIME: 0700 ASSESSMENT AND PLAN: Active Hospital Problems Diagnosis - Pulmonary alveolar hemorrhage - APS (antiphospholipid syndrome) (HCC) - CKD (chronic kidney disease) stage 3, GFR 30-59 ml/min - (HFpEF) heart failure with preserved ejection fraction (HCC) - HTN (hypertension) - Peripheral neuropathy - Renal vein thrombosis (HCC) - IVC thrombosis (HCC) Admission Date: 10/13/2017 Day #: 7 in the MICU. Plan For Day: - Continue high dose steroids 100 mg q12h and PLEX today - Monitor SCr - Decrease Fondaparinux level to 7.5 mg and check assay on 10/20 3 hours after dose - Continue dilaudid po with IV breakthrough - Resume home torsemide for chronic LE edema - Transfer to [facility] SUBJECTIVE: - No acute events overnight, HDS - Hgb uptrending, no further bleeding - Supratherapeutic fondaparinux level; will drop back to 7.5 mg today and check level tomorrow - Splenic ultrasound negative for infarct - SCr back to baseline; complaining of chronic LE edema - Subcostal pain resolved this AM; on dilaudid and gabapentin - Complaining of L dorsal foot paresthesia; on gabapentin OBJECTIVE: Patient Summary: 27 y/o female with hx of anti-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 endograft, on intermediate card tender AC with warfarin, plasmapharesis q2 weeks, prednisone 5 mg qD), 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 ? Major Interval Events: 10/13: Admitted to MICU. Intubated. 10/14: weaning to 2mcg Levo, CXR improved, started on ppx fondaparinux 10/15: Off NE drip. Off paralytics. Weaning off sedation but gets agitated. INR 2.0 this morning. Cr increased to 1.82. 10/16: PLEX today. Extubated after rounds. Doing well off ventilator. 10/17: Blood-tinged sputum, left-sided chest pain and increased oxygen requirement. For her, could be PE, but no other plan than to anticoagulate anyway. Kept fondaparinux at 7.5 dose. Hematology aware. Keep in MICU. 10/18: No hemoptysis. Still having left sided chest pain. Not pleuritic or tender. Oxygen requirement improved--on RA. Splenic ultrasound negative. PLEX today 10/19: Left sided chest pain improving. Ready for transfer to floor Plan for Today: -Continue fondaparinux and monitor CBC -continue steroids -Monitor Cr - Monitor bleeding Assessment and Plan: Neuro: Peripheral neuropathy: Plan: - Gabapentin Pulmonary: Acute hypoxic respiratory failure due to pulmonary hemorrhage (RESOLVED): - Likely alveolar hemorrhage - Hx of DAH - Intubated 10/13 -CXR showing improvement after Rx with steroids Plan: - Monitor CBC/INR - Back on Fondaparinux - Monitor ABGs Cardiovascular: HFpEF: LVEF ~ 50% Plan: - Amlodipine, hydralazine, torsemide HTN: Plan: - Amlodipine, hydralazine, torsemide GI:No active issues. 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 endograft, on senior living AC with warfarin, plasmapharesis q2 weeks, prednisone 5 mg qD); aslo has Hx of HIT Dx 2013 by [facility] Plan: - Consult hematology, appreciate recs - PLEX (10/16 and 10/18) - Continue high dose methylpred Prophylactic: - PPI FULL CODE VITAL SIGNS (last 24hrs min/max): Temp Av.6 ?C (97.9 ?F) Min: 36.3 ?C (97.3 ?F) Max: 36.9 ?C (98.4 ?F) Pulse Av.6 Min: 78 Max: 106 No Data Recorded Cuff BP Min: 135/77 Max: 169/94 Pain Score: 8/10 Vital signs reviewed. NET FLUID BALANCE Intake/Output Summary (Last 24 hours) at 10/19/17 1126 Last data filed at 10/19/17 1100 Gross per 24 hour Intake 2239 ml Output 1750 ml Net 489 ml MEDICATIONS Current hospital medications: hydrALAZINE (APRESOLINE) tab(s) 75 mg 75 mg ORAL/FEEDING TUBE q 8 H torsemide 40 mg tab(s) (DEMADEX) 40 mg ORAL/FEEDING TUBE DAILY insulin lispro injection (rapid acting) (HumaLOG) SUBCUTANEOUS w MEALS insulin lispro injection (rapid acting) (HumaLOG) SUBCUTANEOUS AT BEDTIME fondaparinux 7.5 mg injection (ARIXTRA) 7.5 mg SUBCUTANEOUS q 24 HR polyethylene glycol 3350 17 g packet (MIRALAX, GLYCOLAX) 17 g ORAL/FEEDING TUBE DAILY gabapentin 300 mg cap(s) (NEURONTIN) 300 mg ORAL/FEEDING TUBE q 8 H HYDROmorphone 2 mg tab(s) (DILAUDID) 2 mg ORAL/FEEDING TUBE q 3 H PRN HYDROmorphone 0.4 mg injection (DILAUDID) 0.4 mg INTRAVENOUS q 4 H PRN sodium citrate 4% 3-6 mL catheter lock 3-6 mL INTRALUMINAL APHERESIS PRN amLODIPine 10 mg tab(s) (NORVASC) 10 mg ORAL/FEEDING TUBE DAILY methylPREDNISolone sod succinate(PF) 100 mg injection (Solu- MEDROL) 100 mg INTRAVENOUS q 12 H sulfamethoxazole-trimethoprim 800-160 mg 1 tablet (BACTRIM DS,SEPTRA DS) 1 tablet ORAL -WE- potassium chloride ER 40 mEq tab(s) (K-DUR, KLOR-CON) 40 mEq ORAL/FEEDING TUBE q 2 H PRN magnesium sulfate in water 4-6 g in sterile water 50 ml 4- 6 g INTRAVENOUS PRN sodium phosphate 45 mmol in NaCl 0.9% 250 mL 45 mmol INTRAVENOUS PRN dextrose 50% in water 25-50 mL syringe 12.5-25 g INTRAVENOUS PRN dextrose 40 % 15 g 15 g ORAL PRN glucagon 1 mg injection (GLUCAGEN) 1 mg SUBCUTANEOUS PRN pantoprazole 40 mg injection (PROTONIX) 40 mg INTRAVENOUS DAILY (6 AM) docusate 100 mg CUP (COLACE) 100 mg ORAL/FEEDING TUBE BID sennosides 8.8 mg/5 mL 8.8 mg (SENNA) 8.8 mg ORAL/FEEDING TUBE BID INDWELLING CATHETERS: Zuniga Catheter: No Other Lines/Drains: PIV HEENT:? Oral Mucosa:?Dry mucous membranes??Feeding Tube:?No?? Eyes:?PERRLA???Neck: Unremarkable; No adenopathy or JVD ?? Cardiovascular:?Regular rhythm ?? Respiratory:?Clear to auscultation ?? Abdomen: Soft and Nontender Extremities:?Edema-?Yes???Peripheral Pulses-?Present all extremities??? Skin:?Abnormalities- No???Breakdown-?No? Neurologic:?Awake, oriented, Alert, Follows commands and Moving all extremities ?? NUTRITION:?Regular diet Enteral Feeds: Yes DATA: Labs: CBC, Coags, BMP, Mg, Phos Recent Labs 10/19/17 0448 10/18/17 2325 10/18/17 1147 10/18/17 0029 10/16/17 2330 WBC -- 11.72* 9.62 6.51 7.66 HB -- 10.1* 9.6* 9.2* 9.2* HCT -- 32.0* 30.4* 30.4* 29.3* PLT -- 105* 180 152 105* INR 1.1 1.1 -- 1.1 1.1 NA -- 136 -- 135* 136 K -- 4.0 -- 4.5 4.6 CHLOR -- 94* -- 96* 97 CO2 -- 26 -- 25 23 BUN -- 53* -- 53* 50* CREAT -- 1.19* -- 1.17* 1.32* GLUC -- 195* -- 143* 138* CA -- 8.4* -- 8.5 9.0 MG -- 2.1 -- 2.5* 2.5* P -- 3.3 -- 4.5 4.9* Diagnostic tests reviewed for today's visit: Most recent labs and imaging results. Most recent labs Most recent imaging Most recent EKG PATIENT CHECKLIST ? Are restraints necessary: No ? Deep vein thrombosis prophylaxis administered? No. Contraindicated on therapeutic AC ? Stress ulcer prophylaxis? Yes ? Nasogastric tube? No ? Zuniga catheter necessary? No ? Is central line essential? No ? Plan discussed with assigned RN? Yes ? Family updated within last 24 hours? Yes Code/Social/Dispo: Full code SIGNATURE: Giovanny Blanco MD PGY-3 PATIENT NAME: Paloma Cannon DATE: October 19, 2017 TIME: 11:19 AM PAGER/CONTACT #: [phone] DR. FRED STONE, SR. HOSPITAL STAFF PHYSICIAN NOTE OF PERSONAL INVOLVEMENT IN CARE I have reviewed the clinical information obtained and documented by the resident and I personally participated in the fernandes components. I have discussed the case and management of the patient's care. The following comments revise or confirm relevant fernandes components of the note. Paloma Cannon is a 27 year old female who is admitted to the ICU. The principle issues discussed today and which we are managing at the critical care level are outlined in the hospital problem list summary below, which contains my edits and updates. 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 ? Major Interval Events: 10/13: Admitted to MICU. Intubated. 10/14: weaning to 2mcg Levo, CXR improved, started on ppx fondaparinux 10/15: Off NE drip. Off paralytics. Weaning off sedation but gets agitated. INR 2.0 this morning. Cr increased to 1.82. 10/16: PLEX today. Extubated after rounds. Doing well off ventilator. 10/17: Blood-tinged sputum, left-sided chest pain and increased oxygen requirement. For her, could be PE, but no other plan than to anticoagulate anyway. Kept fondaparinux at 7.5 dose. Hematology aware. Keep in MICU. 10/18: No hemoptysis. Still having left sided chest pain. Not pleuritic or tender. Oxygen requirement improved--on RA. Splenic ultrasound negative. PLEX today 10/19: Left sided chest pain improving, but still requiring dilaudid. No bleeding. Oxygen requirement at baseline. Ready for transfer to floor Plan for Today: -Continue fondaparinux (decrease to 7.5 mg dose) and monitor CBC and fondaparinux factor Xa level. -continue steroids -Monitor Cr - Monitor bleeding Assessment and Plan: Neuro: Peripheral neuropathy: Plan: - Gabapentin Pulmonary: Acute hypoxic respiratory failure due to pulmonary hemorrhage (RESOLVED): - Likely alveolar hemorrhage - Hx of DAH - Intubated 10/13 -CXR showing improvement after Rx with steroids Plan: - Monitor CBC/INR - Back on Fondaparinux - Monitor ABGs Cardiovascular: HFpEF: LVEF ~ 50% Plan: - Amlodipine, hydralazine, torsemide HTN: Plan: - Amlodipine, hydralazine, torsemide GI:No active issues. 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 endograft, on senior living AC with warfarin, plasmapharesis q2 weeks, prednisone 5 mg qD); aslo has Hx of HIT Dx 2014 by [facility]OWN Plan: - Consult hematology, appreciate recs - PLEX (10/16 and 10/18) - Continue high dose methylpred Prophylactic: - PPI FULL CODE Problem list and plan/comments by problem: Active Hospital Problems as of 10/19/2017 Noted - Resolved Hospital APS (antiphospholipid syndrome) ([facility]) 11/29/2016 - Present Current Assessment AND Plan Assessment: severe thrombophilia PLAN: Following hematology recommendations for PLEX No cyclophosphamide -- it is removed by PLEX Keep her anticoagulated if possible. Even in setting of scant hemoptysis. Decrease fondaparinux dose to 7.5 mg based on fondaparinux factor Xa level. Pulmonary alveolar hemorrhage 10/13/2017 - Present Current Assessment AND Plan Assessment: better now that treatment is under way. Hemorrhage appears to have resolved. PLAN: Continue PLEX and monitoring her condition and her hemoglobin level. Extubated. CKD (chronic kidney disease) stage 3, GFR 30-59 ml/min 07/06/2016 - Present (HFpEF) heart failure with preserved ejection fraction (HCC) 02/20/2016 - Present Overview HTN (hypertension) 10/08/2015 - Present Current Assessment AND Plan Peripheral neuropathy 04/14/2016 - Present Current Assessment AND Plan Resumed home dose of gabapentin. IVC thrombosis (HCC) 03/24/2017 - Present Renal vein thrombosis ([facility]) 03/24/2017 - Present This patient has a high probability of sudden, clinically significant deterioration, which requires the highest level of physician preparedness to intervene urgently. I managed/supervised life or organ supporting interventions that required frequent physician assessment. I devoted my full attention to the direct care of this patient for the amount of time indicated below. Time I spent with family or surrogate(s) is included only if the patient was incapable of providing the necessary information or participating in medical decision making. Time devoted to teaching and to any procedures I billed separately is not included. Critical Care Documentation: The patient has the following organ/system impairment(s): Acute blood loss, Acute kidney injury, Coagulopathy, Complex life-threatening medical problem(s) and Severe metabolic disorder Time spent providing critical care services: 32 minutes. 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 Interval Hx: She underwent PLEX on 10/16 and 10/18. On Fondaparinux 7.5mg and on Prednisone 80mg OBJECTIVE: PHYSICAL EXAMINATION: General: NAD HEENT: ?Grossly PERRLA, EOMI, anicteric Heart/CV: ?Grossly RR Lungs/Resp/Chest: ?Normal chest wall movement. Abd: ?Grossly ND, no HSM, no other masses LABS/IMAGING/PATHOLOGY: Component Latest Ref Rng AND Units 10/18/2017 10/19/2017 10/20/2017 WBC 3.70 - 11.00 k/uL 11.72 (H) 10.58 9.46 RBC 3.90 - 5.20 m/uL 3.58 (L) 3.53 (L) 3.22 (L) Hemoglobin 11.5 - 15.5 g/dL 10.1 (L) 9.8 (L) 8.9 (L) Hematocrit 36.0 - 46.0 % 32.0 (L) 31.0 (L) 29.1 (L) MCV 80.0 - 100.0 fL 89.4 87.8 90.4 MCH 26.0 - 34.0 pG 28.2 27.8 27.6 MCHC 30.5 - 36.0 g/dL 31.6 31.6 30.6 RDW-CV 11.5 - 15.0 % 19.2 (H) 19.3 (H) 19.6 (H) Platelet Count 150 - 400 k/uL 105 (L) 115 (L) 113 (L) MPV 9.0 - 12.7 fL <<DO NOT REPORT>> <<DO NOT REPORT>> 12.7 Absolute nRBC <0.01 k/uL 0.02 (H) <0.01 <0.01 Component Latest Ref Rng AND Units 10/18/2017 10/19/2017 10/20/2017 PT Sec 9.7 - 13.0 sec 11.7 11.4 11.5 PT INR 0.9 - 1.3 1.1 1.1 1.1 Component Latest Ref Rng AND Units 10/18/2017 10/20/2017 Protein, Total 6.3 - 8.0 g/dL 5.7 (L) 5.7 (L) Albumin 3.9 - 4.9 g/dL 3.8 (L) 3.9 Calcium 8.5 - 10.2 mg/dL 8.4 (L) 8.5 Bilirubin, Total 0.2 - 1.3 mg/dL 0.7 0.4 Alkaline Phosphatase 32 - 117 U/L 45 44 AST 13 - 35 U/L 16 13 Glucose 74 - 99 mg/dL 195 (H) 202 (H) BUN 7 - 21 mg/dL 53 (H) 53 (H) Creatinine 0.58 - 0.96 mg/dL 1.19 (H) 1.39 (H) Sodium 136 - 144 mmol/L 136 136 Potassium 3.7 - 5.1 mmol/L 4.0 3.8 Chloride 97 - 105 mmol/L 94 (L) 93 (L) CO2 22 - 30 mmol/L 26 30 Anion Gap 9 - 18 mmol/L 16 13 ALT 7 - 38 U/L 13 8 eGFR- >60 55 eGFR-All Other Races . 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 A/P: Catastrophic APS with DAH. [] Fondaparinux to 7.5 mg/day. Monitor closely. [] Monitor CBC: if any bleeding, discuss holding AC [] Underwent PLEX 10/16 and 10/18. [] On Prednisone 80mg PO. If additional or increased bleeding occurs would change it to Solumedrol 250mg IV Q12 hours. Case discussed with Dr. Rios. Juan Christopher MD Fellow, Hematology and Medical Oncology Pager: [phone] PROTIME Collected: 10/19/2017 Status: F Source: [place] 4:48 AM [facility] REPOSITORY TYPE CODE TESTS RESULT OUT OF RANGE REFERENCE UNITS LAB PSEC 9.7-13.0 sec PT Sec 11.4 LAB INR 0.9-1.3 PT INR 1.1 Result Comment: Vitamin K Antagonist (VKA) Therapeutic Range: INR 2 to 3 (Target INR of 2.5) Note: For patients treated with VKA drugs, such as warfarin, the [place] [employer] 2012 Guideline recommends a therapeutic INR range of 2 to 3 (target INR of 2.5). This recommendation includes high-risk patients with antiphospholipid syndrome with previous arterial or venous thromboembolism, current-generation mechanical or bioprosthetic aortic heart valve replacement. Note: Patients with mechanical aortic valve replacement and additional risk factors for thromboembolic events (atrial fibrillation, previous thromboembolism, LV dysfunction, hypercoagulable conditions) or an older generation mechanical AVR (i.e., ball in-Cage) or any mechanical MVR should have a INR therapeutic range of 2.5 to 3.5 (target INR of 3). Michael GH, et al. Chest 2012, 141:7S-47S Diogenes RESENDIZ et al. [facility] 2017, 70: 252-289 Performed By: #### PT #### [facility] [address] [address] PROTIME Collected: 10/18/2017 Status: F Source: [place] 11:25 PM [facility] REPOSITORY TYPE CODE TESTS RESULT OUT OF RANGE REFERENCE UNITS LAB PSEC 9.7-13.0 sec PT Sec 11.7 LAB INR 0.9-1.3 PT INR 1.1 Result Comment: Vitamin K Antagonist (VKA) Therapeutic Range: INR 2 to 3 (Target INR of 2.5) Note: For patients treated with VKA drugs, such as warfarin, the [place] [employer] 2012 Guideline recommends a therapeutic INR range of 2 to 3 (target INR of 2.5). This recommendation includes high-risk patients with antiphospholipid syndrome with previous arterial or venous thromboembolism, current-generation mechanical or bioprosthetic aortic heart valve replacement. Note: Patients with mechanical aortic valve replacement and additional risk factors for thromboembolic events (atrial fibrillation, previous thromboembolism, LV dysfunction, hypercoagulable conditions) or an older generation mechanical AVR (i.e., ball in-Cage) or any mechanical MVR should have a INR therapeutic range of 2.5 to 3.5 (target INR of 3). Michael GH, et al. Chest 2012, 141:7S-47S Diogenes RA, et al. [facility] 2017, 70: 252-289 Performed By: #### PT, CMP, MG1, PHOS, CBC #### [facility] [address] [place] [id number] COMP METABOLIC PANEL Collected: 10/18/2017 Status: F Source: [place] 11:25 PM [facility] REPOSITORY TYPE CODE TESTS RESULT OUT OF REFERENCE UNITS RANGE LAB TP 6.3-8.0 g/dL Low Protein, Total 5.7 LAB ALB 3.9-4.9 g/dL Low Albumin 3.8 LAB CA 8.5-10.2 mg/dL Low Calcium, Total 8.4 LAB TBIL 0.2-1.3 mg/dL Bilirubin, Total 0.7 LAB ALKP 32-117 U/L Alkaline Phosphatase 45 LAB AST 13-35 U/L AST 16 LAB GLU 74-99 mg/dL Glucose High 195 Result Comment: The [place] [employer] (ADA) provides guidance for cutoff values for fasting glucose and random glucose. The ADA defines fasting as no caloric intake for at least 8 hours. Fas ting plasma glucose results between 100 to 125 mg/dL indicate increased risk for diabetes (prediabetes). Fasting plasma glucose results greater than or equal to 126 mg/dL meet the criteria for diagnosis of diabetes. In the absence of unequivocal hyperglycemia, results should be confirmed by repeat testing. In a patient with classic symptoms of hyperglycemia or hyperglycemic crisis, random plasma glucose results greater than or equal to 200 mg/dL meet the criteria for diagnosis of diabetes. Reference: Standards of Medical Care in Diabetes 2016, [place] [employer]. Diabetes Care. 2016.39(Suppl 1). LAB BUN 7-21 mg/dL BUN High 53 LAB CRET 0.58-0.96 mg/dL Creatinine High 1.19 LAB NA 136-144 mmol/L Sodium 136 LAB K 3.7-5.1 mmol/L Potassium 4.0 LAB CL 97-105 mmol/L Low Chloride 94 LAB CO2 22-30 mmol/L CO2 26 LAB AGAP 9-18 mmol/L Anion Gap 16 LAB ALT 7-38 U/L ALT 13 LAB GFRAA eGFR- Amer. >60 LAB GFRNAA . eGFR-All Other Races 54 Result Comment: eGFR (Estimated GFR) Units of measure: mL/min/1.73 meters squared eGFR is derived from the reexpressed MDRD Study equation using the following parameters: serum creatinine, age, gender and race. The creatinine assay has been calibrated to be traceable to IDMS. An eGFR <60 mL/min/1.73m2 for >3 months is consistent with chronic kidney disease. Refer to KDOQI guidelines for clinical interpretation. In patients with unstable renal function, e.g. those with acute kidney injury, the eGFR may not accurately reflect actual GFR. Performed By: #### PT, CMP, MG1, PHOS, CBC #### [facility] [address] [address] MAGNESIUM Collected: 10/18/2017 Status: F Source: [place] 11:25 [facility] REPOSITORY TYPE CODE TESTS RESULT OUT OF REFERENCE UNITS RANGE LAB MG 1.7-2.3 mg/dL Magnesium 2.1 Performed By: #### PT, CMP, MG1, PHOS, CBC #### [facility] [address] [address] PHOSPHORUS Collected: 10/18/2017 Status: F Source: [place] 11:25 [facility] REPOSITORY TYPE CODE TESTS RESULT OUT OF REFERENCE UNITS RANGE LAB PHOS 2.7-4.8 mg/dL Phosphorus 3.3 Performed By: #### PT, CMP, MG1, PHOS, CBC #### [facility] [address] [address] CBC Collected: 10/18/2017 Status: F Source: [place] 11:25 [facility] REPOSITORY TYPE CODE TESTS RESULT OUT OF REFERENCE UNITS RANGE LAB WBC 3.70-11.00 k/uL WBC High 11.72 LAB RBC 3.90-5.20 m/uL Low RBC 3.58 LAB HGB 11.5-15.5 g/dL Low Hemoglobin 10.1 LAB HCT 36.0-46.0 % Low Hematocrit 32.0 LAB MCV 80.0-100.0 fL MCV 89.4 LAB MCH 26.0-34.0 pG MCH 28.2 LAB MCHC 30.5-36.0 g/dL MCHC 31.6 LAB RDWCV 11.5-15.0 % RDW-CV High 19.2 LAB PLTCT 150-400 k/uL Low Platelet Count 105 Result Comment: Result checked and verified No clot detected. Reviewed LAB MPV 9.0-12.7 fL MPV <<DO NOT REPORT>> LAB ABSNUC <0.01 k/uL 0.02 High Absolute nRBC Performed By: #### PT, CMP, MG1, PHOS, CBC #### [facility] [address] [id number] FONDAPARINUX ASSAY Collected: 10/18/2017 Status: F Source: [place] 3:54 PM [facility] REPOSITORY TYPE CODE TESTS RESULT OUT OF REFERENCE UNITS RANGE LAB JEF 0.00 mg/L Fondaparinux High 1.69 Performed By: #### FONDXA #### [facility] [address] [place], [place] [address] PROGRESS Observed: 10/18/2017 Status: COMPLETED Source: [place] 3:17 PM [facility] REPOSITORY HNO ID: [id number] Author: Carmita (Rn) JEFF Verdin Service: (none) Author Type: Registered Nurse Type: Progress Notes Filed: 10/18/2017 3:18 PM Note Text: Opened in error.Carmita Verdni RN US ABD SPLEEN Observed: 10/18/2017 Status: F Source: [place] 1:12 PM [facility] REPOSITORY * * *Final Report* * * DATE OF EXAM: Oct 18 2017 1:12PM U [id number] - US ABD SPLEEN / PROCEDURE REASON: Abdominal pain * * * * Physician Interpretation * * * * EXAMINATION: SPLEEN ULTRASOUND HISTORY: 27-year-old female with left upper quadrant pain concerning for splenic infarct. TECHNIQUE: Sonography of the spleen was performed. Images were obtained and stored in a permanent archive. MQ: [id number] COMPARISON: US 01/31/2017, CT 02/03/2017 RESULT: Spleen: Spleen measures 14.1 x 11.2 x 4.6 cm, borderline enlarged, similar to CT 02/03/2017. There are no splenic lesions. IMPRESSION: BORDERLINE SPLENOMEGALY, SIMILAR TO CT 02/03/2017. NO LESION. Practice Support Specialist: PSCGaudencio Transcribe Date/Time: Oct 18 2017 1:30P Dictated by : FRANTZ MONROY MD This examination was interpreted and the report reviewed and electronically signed by: CAROLYN YEBOAH MD on Oct 18 2017 1:44PM EST [id number] PROCEDURE Observed: 10/18/2017 Status: COMPLETED Source: [place] 1:07 PM [facility] REPOSITORY HNO ID: [id number] Author: Zahra Wallace Service: Apheresis Author Type: Physician Type: Procedures Filed: 10/18/2017 3:11 PM Note Text: APHERESIS THERAPEUTIC PROCEDURE NOTE SERVICE DATE: 10/18/2017 SERVICE TIME: 11:35 TREATMENT #: 88. Pre-treatment labs drawn: No PLAN Next treatment- Patient has completed treatment. : 1990 Age: [age] year old Gender: female Patient identification confirmed patient, birthdate and MRN Apheresis Requested By: Hematology Diagnosis: Anti-Phospholipid Antibody Syndrome/DAH Treatment Procedure: Plasmapheresis Protocol: N/A LABS Recent Labs 10/18/17 1147 10/18/17 0029 WBC 9.62 6.51 HB 9.6* 9.2* HCT 30.4* 30.4* PLT 180 152 INR -- 1.1 BUN -- 53* CREAT -- 1.17* ALB -- 3.9 CA -- 8.5 MG -- 2.5* TBILI -- 0.6 Cholesterol, Total (mg/dL) Date Value 06/20/2017 129 HDL Cholesterol (mg/dL) Date Value 06/20/2017 40 LDL Cholesterol (mg/dL) Date Value 06/20/2017 66 Triglyceride (mg/dL) Date Value 06/20/2017 114 INTERVAL HISTORY: Patient reports feeling better. No questions at this time. PRE-TREATMENT BP 162/77 Pulse 79 Temp 36.7 ?C (98.1 ?F) (Zuniga Thermistor) Resp 6 Ht 160 cm (5' 3) Wt 107.7 kg (237 lb 7 oz) SpO2 97% BMI 42.06 kg/m2 Treatment performed at: Unit/Bed- G061 006/G061-06 Date: 10/18/2017 Catheter Site Dressing: Dry and intact. Venous access: left blue port and double lumen central catheter, venous return: left red port. PRE-MEDICATION diphenhydramine 50mg IV Time:12:38 TREATMENT PARAMETER DATA Whole blood processed: 7162 ml Volume removed: 4342 ml Volume replaced: Albumin 1000 ml, NSS 500 ml and FFP 2003 ml ACD to patient: 116 ml Calcium gluconate 10%: 30 ml Extra fluids: None. Net fluid balance: + 29 ml POST-TREATMENT Vital signs: BP 144/68 HR 88 RR 20 TEMP 97.6 Labs Drawn: None At completion of treatment: Lumen flushed with 10 ml NSS and Lumen flushed with 3 ml 4% sodium citrate Patient tolerated treatment well without complications: Yes Report given to unit nurse. Patient remains in hospital bed. Treatment Started by Apheresis Nurse: Devi Fernandes RN Treatment Completed by Apheresis Nurse: Devi Fernandes RN DR. FRED STONE, SR. HOSPITAL STAFF PHYSICIAN NOTE OF PERSONAL INVOLVEMENT IN CARE She appears comfortable on NC, still in ICU. I reviewed the patients labs, medications and allergies prior to proceeding with this therapeutic treatment and discussed the case and parameters with the apheresis nurse. I have reviewed this therapeutic progress note documented by the apheresis nurse. I personally participated in all pertinent aspects and fernandes components of the therapeutic treatment. I was present during the treatment. Signature: Zahra Wallace MD October 18, 2017 3:10 PM Pager: [phone] PROGRESS Observed: 10/18/2017 Status: COMPLETED Source: [place] 12:55 PM [facility] REPOSITORY O ID: [id number] Author: Stephane Austin Service: Critical Care Author Type: Physician Type: Progress Notes Filed: 10/18/2017 9:21 PM Note Text: MICU PROGRESS NOTE WITH [facility] Primary Service: [place] Team SERVICE DATE: 10/18/2017 SERVICE TIME: 0700 ASSESSMENT AND PLAN: Active Hospital Problems Diagnosis - Pulmonary alveolar hemorrhage - APS (antiphospholipid syndrome) (HCC) - CKD (chronic kidney disease) stage 3, GFR 30-59 ml/min - (HFpEF) heart failure with preserved ejection fraction (HCC) - HTN (hypertension) - Peripheral neuropathy - Renal vein thrombosis (HCC) - IVC thrombosis (HCC) Admission Date: 10/13/2017 Day #: 6 in the MICU. Plan For Day: - Continue high dose steroids 100 mg q12h and PLEX today - Monitor SCr - Monitor for bleeding; uptitrate Fondaparinux to 10 mg for therapeutic AC; assay 3 hours after for levels - Improve pain control with dilaudid po with IV breakthrough - Splenic ultrasound to r/o infarct SUBJECTIVE: - No acute events overnight - Hgb uptrending, no further bleeding - 98% on RA - SCr back to baseline; complaining of chronic LE edema - Hgb stable, no hemoptysis but persistent L subcostal pain c/f splenic infarct vs pulmonary infarct; given location splenic more likely OBJECTIVE: Patient Summary: 27 y/o female with 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 ? Major Interval Events: 10/13: Admitted to MICU. Intubated. 10/14: weaning to 2mcg Levo, CXR improved, started on ppx fondaparinux 10/15: Off NE drip. Off paralytics. Weaning off sedation but gets agitated. INR 2.0 this morning. Cr increased to 1.82. 10/16: PLEX today. Extubated after rounds. Doing well off ventilator. 10/17: Blood-tinged sputum, left-sided chest pain and increased oxygen requirement. For her, could be PE, but no other plan than to anticoagulate anyway. Kept fondaparinux at 7.5 dose. Hematology aware. Keep in MICU. Plan for Today: -Continue therapeutic fondaparinux and monitor CBC -continue steroids -Monitor Cr - Monitor bleeding Assessment and Plan: Neuro: Sedated Plan: - Wean off sedation as tolerated Peripheral neuropathy: Plan: - Gabapentin Pulmonary: Acute hypoxic respiratory failure due to pulmonary hemorrhage: - Likely alveolar hemorrhage - Hx of DAH - Intubated 10/13 -CXR showing improvement after Rx with steroids Plan: - Monitor CBC/INR - slow AC trial with ppx first - Monitor ABGs - Stopped Vancomycin/Zosyn (receved 2 days) Cardiovascular: HFpEF: LVEF ~ 50% Plan: - Hold diuretics in the setting of bleeding HTN: Plan: - Hold amlodipine due to bleeding GI:No active issues. 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 endograft, on senior living AC with warfarin, plasmapharesis q2 weeks, prednisone 5 mg qD); aslo has Hx of HIT Dx 2013 by [facility] - Last plasmapharesis 10/05/17: was due for repeat on 10/16 Plan: - Consult hematology, appreciate recs - start with trial of prophylactic fondaparinux (given Hx of HIT) with plan for full AC in 1-2 days if patient tolerates - plan to keep current schedule for PLEX (10/16 and 10/18) - Continue high dose methylpred Prophylactic: - PPI FULL CODE VITAL SIGNS (last 24hrs min/max): Temp Av.3 ?C (97.4 ?F) Min: 36 ?C (96.8 ?F) Max: 36.8 ?C (98.2 ?F) Pulse Av.7 Min: 65 Max: 92 No Data Recorded Cuff BP Min: 141/67 Max: 180/78 Pain Score: 7/10 Vital signs reviewed. NET FLUID BALANCE Intake/Output Summary (Last 24 hours) at 10/18/17 1255 Last data filed at 10/18/17 1100 Gross per 24 hour Intake 610 ml Output 2050 ml Net -1440 ml MEDICATIONS Current hospital medications: calcium gluconate 3 g in NaCl 0.9% 500 mL 3 g INTRAVENOUS APHERESIS polyethylene glycol 3350 17 g packet (MIRALAX, GLYCOLAX) 17 g ORAL/FEEDING TUBE DAILY gabapentin 300 mg cap(s) (NEURONTIN) 300 mg ORAL/FEEDING TUBE q 8 H HYDROmorphone 2 mg tab(s) (DILAUDID) 2 mg ORAL/FEEDING TUBE q 3 H PRN HYDROmorphone 0.4 mg injection (DILAUDID) 0.4 mg INTRAVENOUS q 4 H PRN fondaparinux 10 mg injection (ARIXTRA) 10 mg SUBCUTANEOUS q 24 HR hydrALAZINE 50 mg tab(s) (APRESOLINE) 50 mg ORAL q 8 H sodium citrate 4% 3-6 mL catheter lock 3-6 mL INTRALUMINAL APHERESIS PRN amLODIPine 10 mg tab(s) (NORVASC) 10 mg ORAL/FEEDING TUBE DAILY methylPREDNISolone sod succinate(PF) 100 mg injection (Solu- MEDROL) 100 mg INTRAVENOUS q 12 H sulfamethoxazole-trimethoprim 800-160 mg 1 tablet (BACTRIM DS,SEPTRA DS) 1 tablet ORAL - potassium chloride ER 40 mEq tab(s) (K-DUR, KLOR-CON) 40 mEq ORAL/FEEDING TUBE q 2 H PRN magnesium sulfate in water 4-6 g in sterile water 50 ml 4- 6 g INTRAVENOUS PRN sodium phosphate 45 mmol in NaCl 0.9% 250 mL 45 mmol INTRAVENOUS PRN insulin regular human injection (short acting) (NovoLIN R,HumuLIN R) SUBCUTANEOUS q 6 H insulin regular human iv bolus 2-10 Units 2-10 Units INTRAVENOUS PRN dextrose 50% in water 25-50 mL syringe 12.5-25 g INTRAVENOUS PRN dextrose 40 % 15 g 15 g ORAL PRN glucagon 1 mg injection (GLUCAGEN) 1 mg SUBCUTANEOUS PRN pantoprazole 40 mg injection (PROTONIX) 40 mg INTRAVENOUS DAILY (6 AM) docusate 100 mg CUP (COLACE) 100 mg ORAL/FEEDING TUBE BID sennosides 8.8 mg/5 mL 8.8 mg (SENNA) 8.8 mg ORAL/FEEDING TUBE BID Zuniga Catheter: Yes Other Lines/Drains: PIVx2 ? HEENT: Oral Mucosa: Dry mucous membranes Feeding Tube: No Eyes: PERRLA Neck: Unremarkable; No adenopathy or JVD ? Cardiovascular: Regular rhythm ? Respiratory: Clear to auscultation ? Abdomen: Soft and Nontender Extremities: Edema- Yes Peripheral Pulses- Present all extremities Skin: Abnormalities- No Breakdown- No Neurologic: Awake, oriented, Alert, Follows commands and Moving all extremities ? NUTRITION: Regular diet Enteral Feeds: Yes ? DATA: Labs: CBC, Coags, BMP, Mg, Phos Recent Labs 10/18/17 1147 10/18/17 0029 10/16/17 2330 10/15/17 2310 WBC 9.62 6.51 7.66 < > 5.73 HB 9.6* 9.2* 9.2* < > 8.1* HCT 30.4* 30.4* 29.3* < > 25.5* PLT 180 152 105* < > 92* INR -- 1.1 1.1 -- 1.4* NA -- 135* 136 -- 134* K -- 4.5 4.6 -- 4.6 CHLOR -- 96* 97 -- 96* CO2 -- 25 23 -- 21* BUN -- 53* 50* -- 49* CREAT -- 1.17* 1.32* -- 1.79* GLUC -- 143* 138* -- 132* CA -- 8.5 9.0 -- 8.8 MG -- 2.5* 2.5* -- 2.6* P -- 4.5 4.9* -- 6.5* < > = values in this interval not displayed. Diagnostic tests reviewed for today's visit: Most recent labs and imaging results. Most recent labs Most recent imaging Most recent EKG PATIENT CHECKLIST ? Are restraints necessary: No ? Deep vein thrombosis prophylaxis administered? No. Contraindicated on therapeutic AC ? Stress ulcer prophylaxis? Yes ? Nasogastric tube? No ? Zuniga catheter necessary? No ? Is central line essential? No ? Plan discussed with assigned RN? Yes ? Family updated within last 24 hours? Yes Code/Social/Dispo: Full Code SIGNATURE: Giovanny Blanco MD PGY-3 PATIENT NAME: Paloma Cannon DATE: October 18, 2017 TIME: 12:55 PM PAGER/CONTACT #: [phone] DR. FRED STONE, SR. HOSPITAL STAFF PHYSICIAN NOTE OF PERSONAL INVOLVEMENT IN CARE I have reviewed the clinical information obtained and documented by the resident and I personally participated in the fernandes components. I have discussed the case and management of the patient's care. The following comments revise or confirm relevant fernandes components of the note. Paloma Cannon is a 27 year old female who is admitted to the ICU. The principle issues discussed today and which we are managing at the critical care level are outlined in the hospital problem list summary below, which contains my edits and updates. 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 ? Major Interval Events: 10/13: Admitted to MICU. Intubated. 10/14: weaning to 2mcg Levo, CXR improved, started on ppx fondaparinux 10/15: Off NE drip. Off paralytics. Weaning off sedation but gets agitated. INR 2.0 this morning. Cr increased to 1.82. 10/16: PLEX today. Extubated after rounds. Doing well off ventilator. 10/17: Blood-tinged sputum, left-sided chest pain and increased oxygen requirement. For her, could be PE, but no other plan than to anticoagulate anyway. Kept fondaparinux at 7.5 dose. Hematology aware. Keep in MICU. 10/18: No hemoptysis. Still having left sided chest pain. Not pleuritic or tender. Oxygen requirement improved--on RA. Plan for Today: -Continue therapeutic fondaparinux and monitor CBC -continue steroids -Monitor Cr - Monitor bleeding Assessment and Plan: Neuro: Sedated Plan: - Wean off sedation as tolerated Peripheral neuropathy: Plan: - Gabapentin Pulmonary: Acute hypoxic respiratory failure due to pulmonary hemorrhage: - Likely alveolar hemorrhage - Hx of DAH - Intubated 10/13 -CXR showing improvement after Rx with steroids Plan: - Monitor CBC/INR - slow AC trial with ppx first - Monitor ABGs - Stopped Vancomycin/Zosyn (receved 2 days) Cardiovascular: HFpEF: LVEF ~ 50% Plan: - Hold diuretics in the setting of bleeding HTN: Plan: - Hold amlodipine due to bleeding GI:No active issues. 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 endograft, on intermediate card tender AC with warfarin, plasmapharesis q2 weeks, prednisone 5 mg qD); randao has Hx of HIT Dx 2014 by [facility] - Last plasmapharesis 10/05/17: was due for repeat on 10/16 Plan: - Consult hematology, appreciate recs - start with trial of prophylactic fondaparinux (given Hx of HIT) with plan for full AC in 1-2 days if patient tolerates - plan to keep current schedule for PLEX (10/16 and 10/18) - Continue high dose methylpred Prophylactic: - PPI FULL CODE Problem list and plan/comments by problem: Active Hospital Problems as of 10/18/2017 Noted - Resolved Hospital APS (antiphospholipid syndrome) (HCC) 11/29/2016 - Present Current Assessment AND Plan Assessment: severe thrombophilia PLAN: Following hematology recommendations for PLEX No cyclophosphamide -- it is removed by PLEX Keep her anticoagulated if possible. Even in setting of scant hemoptysis. Discussed with hematology. Will increase fondaparinux dose to 10 mg. Pulmonary alveolar hemorrhage 10/13/2017 - Present Current Assessment AND Plan Assessment: better now that treatment is under way. Still may have some hemorrhage, but not severe. PLAN: Continue PLEX and monitoring her condition. Extubated. 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 I managed/supervised life or organ supporting interventions that required frequent physician assessment. I devoted my full attention to the direct care of this patient for the amount of time indicated below. Time I spent with family or surrogate(s) is included only if the patient was incapable of providing the necessary information or participating in medical decision making. Time devoted to teaching and to any procedures I billed separately is not included. Critical Care Documentation: The patient has the following organ/system impairment(s): Acute blood loss, Coagulopathy and Complex life-threatening medical problem(s) Time spent providing critical care services: 40 minutes. SIGNATURE: Stephane Austin MD [facility] PAGER:[phone] DATE of SERVICE: October 18, 2017 TIME of SERVICE: 9:21 PM CBC Collected: 10/18/2017 Status: F Source: [place] 11:47 AM [facility] REPOSITORY TYPE CODE TESTS RESULT OUT OF REFERENCE UNITS RANGE LAB WBC 3.70-11.00 k/uL WBC 9.62 LAB RBC 3.90-5.20 m/uL Low RBC 3.40 LAB HGB 11.5-15.5 g/dL Low Hemoglobin 9.6 LAB HCT 36.0-46.0 % Low Hematocrit 30.4 LAB MCV 80.0-100.0 fL MCV 89.4 LAB MCH 26.0-34.0 pG MCH 28.2 LAB MCHC 30.5-36.0 g/dL MCHC 31.6 LAB RDWCV 11.5-15.0 % RDW-CV High 18.9 LAB PLTCT 150-400 k/uL Platelet Count 180 LAB MPV 9.0-12.7 fL MPV 12.1 LAB ABSNUC <0.01 k/uL Absolute nRBC <0.01 Performed By: #### CBC #### [facility] [address] [place], [place] [address] CNOVSP Observed: 10/18/2017 Status: COMPLETED Source: [place] 10:00 AM [facility] REPOSITORY Visit (SP) Office [facility] PALOMA CANNON ([id number]) 1990 F PTR Date Time Provider Department 10/18/17 10:00 AM [facility] During your visit today, we recorded the following information about you: Carmita Verdin RN, RN 10/18/2017 3:18 PM Signed Opened in error.Carmita Verdin RN Referring Provider: LISSETH CLAUDIO [[id number]] Allergies As of Date: 10/18/2017 Noted Allergy Reaction RHUBARB 10/24/2013 2 - Rash 4 - Hives HEPARIN 10/24/2013 14 - Other: See Comments Comments: Per patient history of HIT - was on angiomax however then took l fondaparinux for bridging to coumadin. IV CONTRAST (IODINE) 2016 14 - Other: See Comments Comments: shuts kidneys down per patient RITUXIMAB 11/09/2016 14 - Other: See Comments Comments: Elevated cardiac enzymes Date Reviewed: 10/18/2017 Reviewed by: Kishore (Rn) JEFF Watson - Fully Assessed Primary Visit Diagnosis:APS (antiphospholipid syndrome) ([facility]) [D68.61] Prescriptions as of 10/18/2017 Sig: GABAPENTIN 100 MG CAPSULE Take 400mg in the morning Ethan* COMPOUNDED PRESCRIPTION Home oxygen at 2 litres nc co* FONDAPARINUX 2.5 MG/0.5 ML STAFFORD* Inject 2.5 mg subcutaneously * TORSEMIDE 20 MG TABLET Take 20 mg by mouth once dana* ONDANSETRON HCL 8 MG TABLET Take 1 tablet by mouth every * Patient taking differently: Take 8 mg by mouth every 8 ho* COMPOUNDED PRESCRIPTION O2 Condenser- whichever is co* CYCLOPHOSPHAMIDE 50 MG CAPSULE Take 3 capsules by mouth once* PREDNISONE 5 MG TABLET Take 1 tablet by mouth once d* WARFARIN 2.5 MG TABLET take by mouth as directed in * AMLODIPINE 5 MG TABLET Take 2 tablets by mouth once * Patient taking differently: Take 5 mg by mouth twice dana* SULFAMETHOXAZOLE 800 MG-TRIME* Take 1 tablet by mouth every * FLUTICASONE 50 MCG/ACTUATION * Use 1-2 Sprays in each nostri* PANTOPRAZOLE 40 MG TABLET,DEL* Take 1 tablet by mouth DAILY * Patient taking differently: Take 40 mg by mouth every elaine* CETIRIZINE 10 MG TABLET Take 1 tablet by mouth once d* Patient taking differently: Take 10 mg by mouth twice lis* SENNOSIDES 8.6 MG TABLET Take 1 tablet by mouth twice * More... More... Problem List As Of Date 10/18/2017 Noted Resolved Catastrophic Antiphospholipid antibody syndrome*INVALID FOR*01/24/2017 Priority: C More... 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 Severe Gastritis [K29.70] INVALID FOR*01/11/2017 Priority: F More... More... More... More... More... Anasarca [R60.1] INVALID FOR*01/24/2017 Priority: E More... More... More... More... More... More... 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 More... More... More... More... More... More... More... More... Hx pulmonary embolism [Z86.711] INVALID FOR*01/11/2017 Priority: C More... H/O deep vein thrombophlebitis of lower extremi*INVALID FOR*03/12/2015 Priority: C More... More... More... More... More... More... Hemoptysis [R04.2] INVALID FOR*12/27/2016 More... Elevated troponin [R74.8] INVALID FOR*01/11/2017 Pancytopenia (HCC) [D61.818] INVALID FOR* Priority: C More... Thrombocytopenia (HCC) [D69.6] INVALID FOR*01/11/2017 More... SUMMARY INVALID FOR*01/24/2017 Priority: A More... SIRS (systemic inflammatory response syndrome) *INVALID FOR*04/15/2015 Priority: D More... DVT (deep venous thrombosis) (HCC) [I82.409] INVALID FOR*01/11/2017 Priority: D More... Iron deficiency anemia [D50.9] INVALID FOR*01/11/2017 Priority: F More... Productive cough, hemoptysis [R04.2] INVALID FOR*01/04/2017 Priority: B Community acquired pneumonia [J18.9] INVALID FOR*01/11/2017 Respiratory failure with hypoxia (HCC) [J96.91] INVALID FOR*01/11/2017 Priority: B More... SOB (shortness of breath) [R06.02] INVALID FOR*12/28/2016 HTN (hypertension) [I10] INVALID FOR* Priority: E More... CAPRICE (acute kidney injury) (HCC) [N17.9] INVALID FOR* Priority: B More... 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 Hx of gastritis [Z87.19] INVALID FOR*01/11/2017 More... Nausea AND vomiting [R11.2] INVALID FOR*08/28/2017 Priority: B More... 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 Anemia associated with acute blood loss [D62] INVALID FOR*01/11/2017 More... More... Acute on chronic respiratory failure with hypox*INVALID FOR* Priority: A More... Abdominal pain [R10.9] INVALID FOR* Priority: E More... Vomiting [R11.10] INVALID FOR*01/04/2017 Antiphospholipid syndrome (HCC) [D68.61] INVALID FOR*01/04/2017 Severe protein-calorie malnutrition (HCC) [E43] INVALID FOR* Priority: B Hypoxia [R09.02] INVALID FOR*01/11/2017 Acute hypoxemic respiratory failure (HCC) [J96.*INVALID FOR*12/28/2016 More... Personal history of DVT (deep vein thrombosis) *INVALID FOR*01/11/2017 More... History of heparin-induced thrombocytopenia [Z8*INVALID FOR* Priority: C More... Hospital-acquired pneumonia [J18.9] INVALID FOR*12/28/2016 Priority: B More... Hypoxemia [R09.02] INVALID FOR*01/11/2017 (HFpEF) heart failure with preserved ejection f*INVALID FOR* Priority: D More... Headache [R51] INVALID FOR*01/18/2017 Priority: I More... More... Peripheral neuropathy [G62.9] INVALID FOR* Priority: H More... Joint pain [M25.50] INVALID FOR*01/11/2017 More... Diffuse arthralgia [M25.50] INVALID FOR*01/11/2017 Priority: C More... CKD (chronic kidney disease) stage 3, GFR 30-59*INVALID FOR* Priority: C More... Obesity, Class III, BMI >= 40 (morbid obesity) *INVALID FOR* Priority: F More... Hypertensive emergency [I16.1] INVALID FOR*12/05/2016 More... Acute on chronic diastolic congestive heart ena*INVALID FOR*01/11/2017 More... APS (antiphospholipid syndrome) (HCC) [D68.61] INVALID FOR* Priority: A More... Elevated troponin level [R74.8] INVALID FOR*12/05/2016 More... Hypertensive urgency [I16.0] INVALID FOR*12/05/2016 PNA (pneumonia) [J18.9] INVALID FOR*12/27/2016 Acute respiratory failure with hypoxia (HCC) [J*INVALID FOR*12/27/2016 Clostridium difficile colitis [A04.72] INVALID FOR*12/28/2016 Hemoptysis [R04.2] INVALID FOR*01/20/2017 More... More... Supratherapeutic INR [R79.1] INVALID FOR*04/28/2017 Priority: B More... Cholelithiasis [K80.20] INVALID FOR*01/24/2017 Priority: B More... Ecchymosis of right eye [S05.11XA] INVALID FOR*01/18/2017 Priority: H More... Anticoagulation management encounter [Z51.81, Z*INVALID FOR* Priority: D Acute respiratory failure (HCC) [J96.00] INVALID FOR*02/10/2017 Priority: A More... Pulmonary HTN (HCC) [I27.20] INVALID FOR* Priority: F More... GERD (gastroesophageal reflux disease) [K21.9] INVALID FOR* Priority: E More... RUQ abdominal pain [R10.11] INVALID FOR* Priority: E More... Hemoptysis [R04.2] INVALID FOR*03/11/2017 More... Diarrhea [R19.7] INVALID FOR* Priority: E More... Bacteremia [R78.81] INVALID FOR* Priority: B More... History of HIT (heparin-induced thrombocytopeni*INVALID FOR* Priority: D More... Recurrent deep vein thrombosis (DVT) (HCC) [I82*INVALID FOR* Priority: B Recurrent pulmonary emboli (HCC) [I26.99] INVALID FOR* Anticoagulation monitoring, special range [Z79.*INVALID FOR* Renal vein thrombosis (HCC) [I82.3] INVALID FOR* 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] INVALID FOR* Hypoglycemia [E16.2] INVALID FOR*04/28/2017 Priority: A More... Edema [R60.9] INVALID FOR*08/28/2017 Priority: A More... Flu-like symptoms [R68.89] INVALID FOR*06/10/2017 Hypercoagulable state (HCC) [D68.59] INVALID FOR* Priority: B More... Healthcare maintenance [Z00.00] INVALID FOR* More... Iron deficiency anemia secondary to inadequate *INVALID FOR* Priority: D More... SIRS (systemic inflammatory response syndrome) *INVALID FOR* More... Fever of undetermined origin [R50.9] INVALID FOR*08/25/2017 Red man syndrome [L27.0] INVALID FOR*08/28/2017 More... Sepsis due to Enterococcus (HCC) [A41.81] INVALID FOR* Priority: A Bacteremia due to Staphylococcus epidermidis [R*INVALID FOR* More... Hemoptysis [R04.2] INVALID FOR*10/05/2017 Priority: A More... Dysuria [R30.0] INVALID FOR*10/05/2017 More... Obesity, Class II, BMI 35-39.9 E66.9 [E66.9] INVALID FOR* Pulmonary alveolar hemorrhage [R04.89] INVALID FOR* Priority: A More... 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 Interval Hx: She underwent PLEX on 10/16. Her next treatment is scheduled for today. Continues to improve. Extubated on 10/16 in the afternoon. No hemoptysis today. Continues to complain of left sided pain in the back. Received Lasix 80mg IV this morning. OBJECTIVE: PHYSICAL EXAMINATION: General: NAD HEENT: ?Grossly PERRLA, EOMI, anicteric Heart/CV: ?Grossly RR Lungs/Resp/Chest: ?Normal chest wall movement. Abd: ?Grossly ND, no HSM, no other masses Extremities/Skin: B/L swelling of the LABS/IMAGING/PATHOLOGY: Component Latest Ref Rng AND Units 10/15/2017 10/16/2017 10/18/2017 PT Sec 9.7 - 13.0 sec 14.0 (H) 11.4 11.5 PT INR 0.9 - 1.3 1.4 (H) 1.1 1.1 Component Latest Ref Rng AND Units 10/16/2017 10/16/2017 10/16/2017 10/18/2017 5:45 AM 12:46 PM 11:30 PM WBC 3.70 - 11.00 k/uL 4.64 7.49 7.66 6.51 RBC 3.90 - 5.20 m/uL 2.75 (L) 2.95 (L) 3.21 (L) 3.32 (L) Hemoglobin 11.5 - 15.5 g/dL 7.7 (L) 8.5 (L) 9.2 (L) 9.2 (L) Hematocrit 36.0 - 46.0 % 24.7 (L) 26.4 (L) 29.3 (L) 30.4 (L) MCV 80.0 - 100.0 fL 89.8 89.5 91.3 91.6 MCH 26.0 - 34.0 pG 28.0 28.8 28.7 27.7 MCHC 30.5 - 36.0 g/dL 31.2 32.2 31.4 30.3 (L) RDW-CV 11.5 - 15.0 % 19.1 (H) 18.8 (H) 19.0 (H) 19.1 (H) Platelet Count 150 - 400 k/uL 96 (L) 85 (L) 105 (L) 152 MPV 9.0 - 12.7 fL 13.5 (H) <<DO NOT REPORT>> <<DO NOT REPORT>> 11.4 Neut% % 95.5 Abs Neut (ANC) 1.45 - 7.50 k/uL 7.31 Lymph% % 0.5 Abs Lymph 1.00 - 4.00 k/uL 0.04 (L) [place]% % 3.9 Abs [place] <0.87 k/uL 0.30 Eosin% % 0.0 Abs Eosin <0.46 k/uL <0.03 Baso% % 0.1 Abs Baso <0.11 k/uL <0.03 Nucleated Reds 0 /100 WBC 0.4 (H) Absolute nRBC <0.01 k/uL 0.04 (H) 0.02 (H) 0.03 (H) <0.01 Diff Type Auto Diff Component Latest Ref Rng AND Units 10/15/2017 10/16/2017 10/18/2017 Protein, Total 6.3 - 8.0 g/dL 5.7 (L) 6.1 (L) 5.7 (L) Albumin 3.9 - 4.9 g/dL 3.6 (L) 3.8 (L) 3.9 Calcium 8.5 - 10.2 mg/dL 8.8 9.0 8.5 Bilirubin, Total 0.2 - 1.3 mg/dL 0.4 0.7 0.6 Alkaline Phosphatase 32 - 117 U/L 55 48 44 AST 13 - 35 U/L 13 14 12 (L) Glucose 74 - 99 mg/dL 132 (H) 138 (H) 143 (H) BUN 7 - 21 mg/dL 49 (H) 50 (H) 53 (H) Creatinine 0.58 - 0.96 mg/dL 1.79 (H) 1.32 (H) 1.17 (H) Sodium 136 - 144 mmol/L 134 (L) 136 135 (L) Potassium 3.7 - 5.1 mmol/L 4.6 4.6 4.5 Chloride 97 - 105 mmol/L 96 (L) 97 96 (L) CO2 22 - 30 mmol/L 21 (L) 23 25 Anion Gap 9 - 18 mmol/L 17 16 14 ALT 7 - 38 U/L 11 12 10 eGFR- 41 58 >60 eGFR-All Other Races . 34 48 55 DVT US 10/14/17: Chronic R common femoral DVT, AV fistula in L common femoral artery-vein, with retrograde flow in multiple vessels; no acute DVT, though technically limited study. A/P: Catastrophic APS with DAH. [] Pain in the back- Ddx: Splenic infarct vs PE. Primary team will obtain imaging to evaluate further. [] It is reasonable to increase Fondaparinux to 10 mg/day. Monitor closely given three episodes of hemoptysis yesterday. Monitor closely. [] Monitor CBC: if any bleeding, discuss holding AC [] Underwent PLEX 10/16 and 10/18. [] On Solumedrol to 100mg Q12H. If additional or increased bleeding occurs would increase dose back up to 250mg IV Q12 hours. Case discussed with Dr. Blanca Christopher MD Fellow, Hematology and Medical Oncology Pager: [phone] DR. FRED STONE, SR. HOSPITAL STAFF PHYSICIAN NOTE OF PERSONAL INVOLVEMENT IN CARE I have reviewed the history and physical examination and progress note obtained and documented by the fellow and I personally participated in the fernandes components. I have discussed the case and management of the patient's care. The following comments revise or confirm relevant fernandes components of their note. Patient with persistent severe left sided flank/back pain. Not reproducible. Concern for PE with pulmonary infarct versus splenic infarct. Discussed with primary service - no hemoptysis x 24 hours. Pt weighs > 100kg. Increase fondaparinux to 10mg daily. Imaging to further evaluate flank pain. PLEX today. Continue current dose of steroids. Following with you and pls call with questions. SIGNATURE: Dominique Rios DO PAGER: [phone] DATE of SERVICE: October 18, 2017 TIME of SERVICE: 6:15 PM CBC Collected: 10/18/2017 Status: F Source: [place] 12:29 AM [facility] REPOSITORY TYPE CODE TESTS RESULT OUT OF REFERENCE UNITS RANGE LAB WBC 3.70-11.00 k/uL WBC 6.51 LAB RBC 3.90-5.20 m/uL Low RBC 3.32 LAB HGB 11.5-15.5 g/dL Low Hemoglobin 9.2 LAB HCT 36.0-46.0 % Low Hematocrit 30.4 LAB MCV 80.0-100.0 fL MCV 91.6 LAB MCH 26.0-34.0 pG MCH 27.7 LAB MCHC 30.5-36.0 g/dL Low MCHC 30.3 LAB RDWCV 11.5-15.0 % RDW-CV High 19.1 LAB PLTCT 150-400 k/uL Platelet Count 152 LAB MPV 9.0-12.7 fL MPV 11.4 LAB ABSNUC <0.01 k/uL Absolute nRBC <0.01 Performed By: #### CBC, PT, CMP, MG1, PHOS #### [facility] [address] [place], [place] [address] PROTIME Collected: 10/18/2017 Status: F Source: [place] 12:29 AM [facility] REPOSITORY TYPE CODE TESTS RESULT OUT OF RANGE REFERENCE UNITS LAB PSEC 9.7-13.0 sec PT Sec 11.5 LAB INR 0.9-1.3 PT INR 1.1 Result Comment: Vitamin K Antagonist (VKA) Therapeutic Range: INR 2 to 3 (Target INR of 2.5) Note: For patients treated with VKA drugs, such as warfarin, the [place] [employer] 2012 Guideline recommends a therapeutic INR range of 2 to 3 (target INR of 2.5). This recommendation includes high-risk patients with antiphospholipid syndrome with previous arterial or venous thromboembolism, current-generation mechanical or bioprosthetic aortic heart valve replacement. Note: Patients with mechanical aortic valve replacement and additional risk factors for thromboembolic events (atrial fibrillation, previous thromboembolism, LV dysfunction, hypercoagulable conditions) or an older generation mechanical AVR (i.e., ball in-Cage) or any mechanical MVR should have a INR therapeutic range of 2.5 to 3.5 (target INR of 3). Michael GH, et al. Chest 2012, 141:7S-47S Diogenes RA, et al. [facility] 2017, 70: 252-289 Performed By: #### CBC, PT, CMP, MG1, PHOS #### [facility] [address] [place], [place] [id number] COMP METABOLIC PANEL Collected: 10/18/2017 Status: F Source: [place] 12:29 AM [facility] REPOS[facility] TYPE CODE TESTS RESULT OUT OF REFERENCE UNITS RANGE LAB TP 6.3-8.0 g/dL Low Protein, Total 5.7 LAB ALB 3.9-4.9 g/dL Albumin 3.9 LAB CA 8.5-10.2 mg/dL Calcium, Total 8.5 LAB TBIL 0.2-1.3 mg/dL Bilirubin, Total 0.6 LAB ALKP 32-117 U/L Alkaline Phosphatase 44 LAB AST 13-35 U/L Low AST 12 LAB GLU 74-99 mg/dL Glucose High 143 Result Comment: The [place] [employer] (ADA) provides guidance for cutoff values for fasting glucose and random glucose. The ADA defines fasting as no caloric intake for at least 8 hours. Fas ting plasma glucose results between 100 to 125 mg/dL indicate increased risk for diabetes (prediabetes). Fasting plasma glucose results greater than or equal to 126 mg/dL meet the criteria for diagnosis of diabetes. In the absence of unequivocal hyperglycemia, results should be confirmed by repeat testing. In a patient with classic symptoms of hyperglycemia or hyperglycemic crisis, random plasma glucose results greater than or equal to 200 mg/dL meet the criteria for diagnosis of diabetes. Reference: Standards of Medical Care in Diabetes 2016, [place] [employer]. Diabetes Care. 2016.39(Suppl 1). LAB BUN 7-21 mg/dL BUN High 53 LAB CRET 0.58-0.96 mg/dL Creatinine High 1.17 LAB NA 136-144 mmol/L Low Sodium 135 LAB K 3.7-5.1 mmol/L Potassium 4.5 LAB CL 97-105 mmol/L Low Chloride 96 LAB CO2 22-30 mmol/L CO2 25 LAB AGAP 9-18 mmol/L Anion Gap 14 LAB ALT 7-38 U/L ALT 10 LAB GFRAA eGFR- Amer. >60 LAB GFRNAA . eGFR-All Other Races 55 Result Comment: eGFR (Estimated GFR) Units of measure: mL/min/1.73 meters squared eGFR is derived from the reexpressed MDRD Study equation using the following parameters: serum creatinine, age, gender and race. The creatinine assay has been calibrated to be traceable to IDMS. An eGFR <60 mL/min/1.73m2 for >3 months is consistent with chronic kidney disease. Refer to KDOQI guidelines for clinical interpretation. In patients with unstable renal function, e.g. those with acute kidney injury, the eGFR may not accurately reflect actual GFR. Performed By: #### CBC, PT, CMP, MG1, PHOS #### [facility] [address] [place] [id number] MAGNESIUM Collected: 10/18/2017 Status: F Source: [place] 12:29 AM [facility] REPOSITORY TYPE CODE TESTS RESULT OUT OF REFERENCE UNITS RANGE LAB MG 1.7-2.3 mg/dL High Magnesium 2.5 Performed By: #### CBC, PT, CMP, MG1, PHOS #### [facility] [address] [place] [id number] PHOSPHORUS Collected: 10/18/2017 Status: F Source: [place] 12:29 AM [facility] REPOSITORY TYPE CODE TESTS RESULT OUT OF REFERENCE UNITS RANGE LAB PHOS 2.7-4.8 mg/dL Phosphorus 4.5 Performed By: #### CBC, PT, CMP, MG1, PHOS #### [place] [id number] PLAN OF CARE Observed: 10/17/2017 Status: COMPLETED Source: [place] 6:06 PM [facility] REPOSITORY HNO ID: [id number] Author: Aline Leblanc (Pharmacist) Service: Pharmacy Author Type: Pharmacist Type: Plan of Care Filed: 10/19/2017 12:16 PM Note Text: MEDICATION HISTORY AND MEDICATION RECONCILIATION Patient Name:Karyna Cannon : 1990 Source of history:Patient: Reliability of source: Appears reliable, clearly identified: Medication name, Medication dose and Medication frequency Medication Nonadherence Identified: No barriers noted The above information represents the best possible medication history: Yes Reconciliation completed? Yes All [employer] medications addressed by LIP Additional comments: Held medication: Warfarin 2.5 mg tablet Active Medications [employer]: Amlodipine 5 m tabs po daily, hold for SBP <120 Cetirizine 10 m tab po bid Cyclophosphamide 50m capsules po daily Fluticasone 50mcg/actuation: 1-2 sprays in each nostril daily prn for cold/allergy symptoms Fondaparinux 2.5mg/0.5 ml: inject 2.5mg sc q24h gapabentin 100m caps in the Am, 3 caps in the afternoon, 3 caps in the evening Ondansetron 8 m tablet po q8h prn for nausea/vomiting Pantoprazole 40 m tab po daily Prednisone 5 m tab po daily Senna 8.6 m tab po bid prn Bactrim DS: 1 tab po on Monday/Monday/Monday Torsemide 20 m tab po daily Warfarin indication:hypercoagulable state with a history of DVT and PE Warfarin followed by: Dr Kem Andujar Current dose at steady-state?: No - Last dose adjustment medication held, patient on fondaparinux Last INR: 1.1 Allergies: ALLERGIES Allergen Reactions - Rhubarb Rash, Hives - Heparin Other: See Comments Per patient history of HIT - was on angiomax however then took l fondaparinux for bridging to coumadin. - Iv Contrast [Iodine] Other: See Comments shuts kidneys down per patient - Rituximab Other: See Comments Elevated cardiac enzymes Preferred Pharmacy: 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 Hold for SBP <120 Yes ondansetron (ZOFRAN, HYDROCHLORIDE,) 8 mg tablet Take 8 mg by mouth every 8 hours as needed for Nausea/Vomiting. Yes pantoprazole DR (PROTONIX) 40 mg tablet Take 40 mg by mouth daily at bedtime. Yes cetirizine (ZYRTEC) 10 mg tablet Take 10 mg by mouth twice daily. Yes gabapentin (NEURONTIN) 100 mg capsule Take 400mg in the morning Take 300 mg in the afternoon Take 300mg in the evening Patient may change dose based on pain Unknown at Unknown time fondaparinux (ARIXTRA) 2.5 mg/0.5 mL syrg Inject 2.5 mg subcutaneously q 24 HR. Short term medication to cover while warfarin was on hold Unknown at Unknown time torsemide (DEMADEX) 20 mg tablet Take 20 mg by mouth once daily as needed (takes 20-60 mg as needed for chronic edema). Unknown at Unknown time cyclophosphamide (CYTOXAN) 50 mg capsule Take 3 capsules by mouth once daily. Unknown at Unknown time predniSONE (DELTASONE) 5 mg tablet Take 1 tablet by mouth once daily. Unknown at Unknown time warfarin (COUMADIN) 2.5 mg tablet take by mouth as directed in the evening to keep INR between 2.0-3.0 Unknown at Unknown time sulfamethoxazole-trimethoprim (BACTRIM DS) 800-160 mg per tablet Take 1 tablet by mouth every Monday,Monday,Monday. Unknown at Unknown time fluticasone (FLONASE) 50 mcg/actuation nasal spray Use 1-2 Sprays in each nostril once daily as needed for Cold/Allergy Symptoms (starting in allergy season). Unknown at Unknown time senna 8.6 mg tab Take 1 tablet by mouth twice daily as needed. Unknown at Unknown time Jcarlos Rand (Ammonium Hydroxide Operator) October 17, 2017 6:07 PM ALINE LEBLANC, PHARMACIST October 19, 2017 12:15 PM CASE MANAGEM Observed: 10/17/2017 Status: COMPLETED Source: [place] 11:41 AM [facility] REPOSITORY HNO ID: [id number] Author: Radha Sauer) JEFF Hope Service: Case Management Author Type: Registered Nurse Type: Care Mgt Progress Note Filed: 10/17/2017 11:41 AM Note Text: CARE MANAGEMENT PROGRESS NOTE SERVICE DATE: 10/17/2017 SERVICE TIME: 11:41 AM LOS: 4 days Needs Prior to Discharge: To Be Determined Anticipate transfer to [facility]. D/C needs and date TBD. SIGNATURE: Radha Hope RN PATIENT NAME: Paloma Cannon DATE: October 17, 2017 TIME: 11:41 AM PAGER/CONTACT #: [phone] NUTRITION Observed: 10/17/2017 Status: COMPLETED Source: [place] 11:35 AM [facility] REPOSITORY HNO ID: [id number] Author: Edel Guillen Service: NST-Nutrition Support Team Author Type: Registered Dietitian Type: Nutrition Filed: 10/17/2017 11:35 AM Note Text: NUTRITION THERAPY REASSESSMENT SERVICE DATE: 10/17/2017 SERVICE TIME: 08:30 AM RECOMMENDED MALNUTRITION DIAGNOSIS: NO MALNUTRITION IDENTIFIED Intervention: Recommend liberalizing diet to Regular Will order Ensure Enlive twice daily with meals Monitor and Evaluation: Goal: Meet >75% of estimated needs Discharge Nutrition Recommendations: Diet: Regular Patient Summary:? 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 ?? Major Interval Events: 10/13: Admitted to MICU. Intubated. 10/14: weaning to 2mcg Levo, CXR improved, started on ppx fondaparinux 10/15: Off NE drip. Off paralytics. Weaning off sedation but gets agitated. INR 2.0 this morning. Cr increased to 1.82. 10/16: PLEX today Present Diet Order: Carbohydrate Controlled diet Nutritional Intake: Per patient, appetite good prior to admit; no recent changes in intakes Since admit, was on TF 10/14-10/16. Diet recently advanced but pt states no appetite. Willing to try supplements. And would like diet changed to Regular. GI symptoms: none Abdominal Exam: abdomen is soft Is the patient having any pain that is interfering with oral/enteral intake? No ANTHROPOMETRICS Height: 160 cm (5' 3) Admission Weight: 104 kg (229 lb 4.5 oz) Current Weight: 110.4 kg (243 lb 6.2 oz) Body mass index is 43.11 kg/(m2). Weight has increased over the past month related to fluid (edema present); per d/w Patient, usual weight ~220 lbs. ?? Last Wt 10/13/17 : 104 kg (229 lb 4.5 oz) 10/05/17 : 101.4 kg (223 lb 8 oz) 09/12/17 : 96.6 kg (213 lb) 08/21/17 : 92.7 kg (204 lb 6.4 oz) - Office visit 07/11/17 : 106.6 kg (235 lb) 04/29/17 : 114.5 kg (252 lb 6.8 oz) 02/10/17 : 105.3 kg (232 lb 2.3 oz) 01/04/17 : 117 kg (257 lb 15 oz) 10/18/2016 114.306 kg 44.64 ? Orange body weight 52.3 kg Dosing Weight: 101 kg Estimated kilocalorie needs: 4505-0885 kilocalories determined by 11-14 kcal/kg Estimated protein needs: 78-105 grams determined by 1.5-2.0 g/kg Orange weight Estimated fluid needs: per MD NUTRITION FOCUSED PHYSICAL EXAM: Subcutaneous Fat Loss Orbital No fat loss Triceps No fat loss Mid-axillary at the iliac crest Unable to determine at this time Muscle Loss Locations: Temporalis No muscle loss Pectoralis No muscle loss Deltoids No muscle loss Interosseous Unable to determine at this time Latissimus dorsi, trapezius Unable to determine at this time Quadriceps Unable to determine at this time Gastrocnemius Unable to determine at this time Potential micronutrient deficiency revealed in: Skin - pallor Edema: Yes Generalized Ascites: No Assessment of Functional Status: No functional impairment, normal with no limitations 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 Potential Signs of Inflammation: hypoalbuminemia Current Facility-Administered Medications: sodium citrate 4% 3-6 mL catheter lock 3-6 mL INTRALUMINAL APHERESIS PRN amLODIPine 10 mg tab(s) (NORVASC) 10 mg ORAL/FEEDING TUBE DAILY diphenhydrAMINE 50 mg injection (BENADRYL) 50 mg INTRAVENOUS APHERESIS PRN hydrALAZINE 20 mg tab(s) (APRESOLINE) 20 mg ORAL q 8 H PRN fentaNYL 50 mcg/mL 50-100 mcg injection (SUBLIMAZE) 50-100 mcg INTRAVENOUS q 15 MIN PRN fentaNYL 20 mcg/mL iv infusion in NaCl 0.9% 100 mL 50-250 mcg/hr INTRAVENOUS CONTINUOUS propofol iv bolus 20 mg (DIPRIVAN) 20 mg INTRAVENOUS q 30 MIN PRN propofol infusion (DIPRIVAN) 5-60 mcg/kg/min INTRAVENOUS CONTINUOUS QUEtiapine 25 mg tab(s) (SEROquel) 25 mg ORAL/FEEDING TUBE DAILY (7 AM) QUEtiapine 50 mg tab(s) (SEROquel) 50 mg ORAL/FEEDING TUBE AT BEDTIME NaCl 0.9% iv infusion 5-30 mL/hr INTRAVENOUS CONTINUOUS fondaparinux 7.5 mg injection (ARIXTRA) 7.5 mg SUBCUTANEOUS q 24 HR gabapentin 100 mg cap(s) (NEURONTIN) 100 mg ORAL AT BEDTIME sulfamethoxazole-trimethoprim 800-160 mg 1 tablet (BACTRIM DS,SEPTRA DS) 1 tablet ORAL - potassium chloride ER 40 mEq tab(s) (K-DUR, KLOR-CON) 40 mEq ORAL/FEEDING TUBE q 2 H PRN magnesium sulfate in water 4-6 g in sterile water 50 ml 4- 6 g INTRAVENOUS PRN sodium phosphate 45 mmol in NaCl 0.9% 250 mL 45 mmol INTRAVENOUS PRN insulin regular human injection (short acting) (NovoLIN R,HumuLIN R) SUBCUTANEOUS q 6 H insulin regular human iv bolus 2-10 Units 2-10 Units INTRAVENOUS PRN dextrose 50% in water 25-50 mL syringe 12.5-25 g INTRAVENOUS PRN dextrose 40 % 15 g 15 g ORAL PRN glucagon 1 mg injection (GLUCAGEN) 1 mg SUBCUTANEOUS PRN pantoprazole 40 mg injection (PROTONIX) 40 mg INTRAVENOUS DAILY (6 AM) methylPREDNISolone sodium succinate 250 mg in NaCl 0.9% 100 mL (Solu-MEDROL) 250 mg INTRAVENOUS q 12 H white petrolatum-mineral Oil 83-15 % (LUBRIFRESH P.M.) BOTH EYES q 6 H docusate 100 mg CUP (COLACE) 100 mg ORAL/FEEDING TUBE BID sennosides 8.8 mg/5 mL 8.8 mg (SENNA) 8.8 mg ORAL/FEEDING TUBE BID Chlorhexidine Gluconate 0.12 % 15 mL (PERIDEX) 15 mL ORAL QID MNT Billing Type: Re-assess/15 min 2 units SIGNATURE: Edel Guillen RD, LD, [facility] PATIENT NAME: Paloma Cannon DATE: October 17, 2017 TIME: 8:15 AM PAGER: [phone] XR CHEST 1V FRONTAL Observed: 10/17/2017 Status: F Source: [facility] 11:19 AM [facility] REPOSITORY * * *Final Report* * * DATE OF EXAM: Oct 17 2017 11:19AM [facility] [id number] - XR CHEST 1V FRONTAL PORT / PROCEDURE REASON: Chest pain * * * * Physician Interpretation * * * * EXAMINATION: CHEST RADIOGRAPH (PORTABLE SINGLE VIEW AP) Exam Date/Time: 10/17/2017 11:19 AM Indication: Chest pain MQ: XCP_4 Comparison: 2 days prior RESULT: See impression. IMPRESSION: Lines, tubes, and devices: Interval extubation and removal of nasogastric tube. Left-sided central venous catheters remain in place. Lungs and pleura: There is diffuse airspace consolidation in both lungs, progressed since the prior exam. Small associated bilateral pleural effusions are also noted. There is worsening bibasilar atelectasis. No large pneumothorax is identified. Cardiomediastinal silhouette: The cardiomediastinal silhouette is unchanged. Other: Practice Support Specialist: MURTAZA Transcribe Date/Time: Oct 17 2017 12:25P Dictated by : DANNY COSTA MD This examination was interpreted and the report reviewed and electronically signed by: DANNY COSTA MD on Oct 17 2017 12:26PM EST [id number] CK, TOTAL AND CKMB Collected: 10/17/2017 Status: F Source: [place] 10:42 AM [facility] REPOSITORY TYPE CODE TESTS RESULT OUT OF RANGE REFERENCE UNITS LAB CK 42-196 U/L CK 53 Result Comment: Please note the updated, gender-specific reference range for this test (effective 06/23/2016). LAB MB <4.3 ng/mL MB <1.0 Result Comment: Please note the updated, gender-specific reference range for this test (effective 06/24/2016). LAB CKMBRI 0.0-4.0 % CK MB % not reported CK MB % with CK <100 U/L. Performed By: #### CKCKMB, AMINAH #### [facility] [address] [place], [place] [address] TROPONIN T Collected: 10/17/2017 Status: F Source: [place] 10:42 AM [facility] REPOSITORY TYPE CODE TESTS RESULT OUT OF REFERENCE UNITS RANGE LAB TROPT 0.000-0.029 ng/mL Troponin T <0.010 Performed By: #### CKCKMB, AMINAH #### [facility] [address] [place], [place] [address] CONSULT PROG Observed: 10/17/2017 Status: COMPLETED Source: [place] 10:27 AM [facility] REPOSITORY HNO ID: [id number] Author: Dominique Rios Service: Hematology/Oncology Author Type: Physician Type: Consult Progress Note Filed: 10/17/2017 7:51 PM Note Text: Follow-up Note: HPI: 27 y/o female with PMHx of 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 Interval Hx: She underwent PLEX on 10/16. Her next treatment is scheduled for Monday (10/18). Continues to improve. Extubated on 10/16 in the afternoon. Had 3 episodes of hemoptysis this afternoon. Will monitor. OBJECTIVE: PHYSICAL EXAMINATION: General: NAD HEENT: ?Grossly PERRLA, EOMI, anicteric Heart/CV: ?Grossly RR Lungs/Resp/Chest: ?Normal chest wall movement. Abd: ?Grossly ND, no HSM, no other masses Extremities/Skin: B/L swelling of the LABS/IMAGING/PATHOLOGY: Component Latest Ref Rng AND Units 10/15/2017 10/16/2017 10/16/2017 10/16/2017 10/16/2017 10/17/2017 5:45 AM 12:46 PM 3:00 PM 11:30 PM WBC 3.70 - 11.00 k/uL 5.73 4.64 7.49 7.66 RBC 3.90 - 5.20 m/uL 2.83 (L) 2.75 (L) 2.95 (L) 3.21 (L) Hemoglobin 11.5 - 15.5 g/dL 8.1 (L) 7.7 (L) 8.5 (L) 9.2 (L) Hematocrit 36.0 - 46.0 % 25.5 (L) 24.7 (L) 26.4 (L) 29.3 (L) MCV 80.0 - 100.0 fL 90.1 89.8 89.5 91.3 MCH 26.0 - 34.0 pG 28.6 28.0 28.8 28.7 MCHC 30.5 - 36.0 g/dL 31.8 31.2 32.2 31.4 RDW-CV 11.5 - 15.0 % 18.9 (H) 19.1 (H) 18.8 (H) 19.0 (H) Platelet Count 150 - 400 k/uL 92 (L) 96 (L) 85 (L) 105 (L) MPV 9.0 - 12.7 fL <<DO NOT REPORT>> 13.5 (H) <<DO NOT REPORT>> <<DO NOT REPORT>> Neut% % 93.6 95.5 Abs Neut (ANC) 1.45 - 7.50 k/uL 5.36 7.31 Lymph% % 1.2 0.5 Abs Lymph 1.00 - 4.00 k/uL 0.07 (L) 0.04 (L) [place]% % 5.2 3.9 Abs [place] <0.87 k/uL 0.30 0.30 Eosin% % 0.0 0.0 Abs Eosin <0.46 k/uL <0.03 <0.03 Baso% % 0.0 0.1 Abs Baso <0.11 k/uL <0.03 <0.03 Nucleated Reds 0 /100 WBC 0.5 (H) 0.4 (H) Absolute nRBC <0.01 k/uL 0.03 (H) 0.04 (H) 0.02 (H) 0.03 (H) Diff Type Auto Diff Auto Diff Protein, Total 6.3 - 8.0 g/dL 5.7 (L) 6.1 (L) Albumin 3.9 - 4.9 g/dL 3.6 (L) 3.8 (L) Calcium 8.5 - 10.2 mg/dL 8.8 9.0 Bilirubin, Total 0.2 - 1.3 mg/dL 0.4 0.7 Alkaline Phosphatase 32 - 117 U/L 55 48 AST 13 - 35 U/L 13 14 Glucose 74 - 99 mg/dL 132 (H) 138 (H) BUN 7 - 21 mg/dL 49 (H) 50 (H) Creatinine 0.58 - 0.96 mg/dL 1.79 (H) 1.32 (H) Sodium 136 - 144 mmol/L 134 (L) 136 Potassium 3.7 - 5.1 mmol/L 4.6 4.6 Chloride 97 - 105 mmol/L 96 (L) 97 CO2 22 - 30 mmol/L 21 (L) 23 Anion Gap 9 - 18 mmol/L 17 16 ALT 7 - 38 U/L 11 12 eGFR- 41 58 eGFR-All Other Races . 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 A/P: Catastrophic APS with DAH. [] Continue with Fondaparinux to 7.5 mg/D (therapeutic dose). Monitor closely given three episodes of hemoptysis. If more episodes, would recommend stopping the anticoagulation. [] PT Mixing study shows correction after addition of normal plasma. An inhibitor is unlikely. [] Monitor CBC: if any bleeding, discuss holding AC [] Underwent PLEX 10/16. Next PLEx scheduled for 10/18/17 [] On Solumedrol to 100mg Q12H Case discussed with Dr. Blanca Christopher MD Fellow, Hematology and Medical Oncology Pager: [phone] DR. FRED STONE, SR. HOSPITAL STAFF PHYSICIAN NOTE OF PERSONAL INVOLVEMENT IN CARE I have reviewed the history and physical examination and progress note obtained and documented by the fellow and I personally participated in the fernandes components. I have discussed the case and management of the patient's care. The following comments revise or confirm relevant fernandes components of their note. Small amount of hemoptysis today but hemoglobin stable. With right sided flank pain upper chest wall. Etiology unclear. Given her risk for thrombosis would continue fondiparinux 7.5mg daily but monitor closely. Troponins were negative. May need additional evaluation/imaging if CP persists. Plan is for PLEX tomorrow. Continue current solumedrol dose but if additional or increased bleeding occurs would increase dose back up to 250mg IV Q12 hours. Other recommendations as outlined above. Following with you and case discussed with primary MICU service today. SIGNATURE: Dominique Rios DO PAGER: [phone] DATE of SERVICE: October 17, 2017 TIME of SERVICE: 7:51 PM 12 LEAD ELECTROCARDIOGRAM Observed: 10/17/2017 Status: F Source: [facility] 8:19 AM [facility] REPOSITORY [facility] Cardiovascular Services [address] [place] [id number] 12 Lead EKG 10/13/17 1016 MR#: [id number] Acct: [id number] Name: PALOMA CANNON Rep #: [id number] : 1990 27 From: Eddie Kwon MD Attending Dr: Status: DEP ER Ordering Dr: Lydia Harley MD Date: 10/13/17 Location: ED Sex: F C Admitted: Test Reason : POST INTUBATION Blood Pressure : / mmHG Vent. Rate : 124 BPM Atrial Rate : 124 BPM P-R Int : 142 ms QRS Dur : 088 ms QT Int : 336 ms P-R-T Axes : 028 -07 073 degrees QTc Int : 482 ms Sinus tachycardia Left ventricular hypertrophy Abnormal ECG Confirmed by EDDIE KWON MD ([id number]), fashion editor FARRUKH CHAVEZ ([id number]) on 10/17/2017 8:19:20 AM Referred By: Magdalena Lewis Confirmed By:EDDIE KWON MD 10/17/17 0819 Date Eddie Kwon MD CC: Peyton Rogers MD; Lydia Harley MD Signed PROGRESS Observed: 10/17/2017 Status: COMPLETED Source: [place] 7:06 AM [facility] REPOSITORY HNO ID: [id number] Author: Stephane Austin Service: Critical Care Author Type: Physician Type: Progress Notes Filed: 10/17/2017 5:17 PM Note Text: MICU PROGRESS NOTE WITH [facility] Primary Service: [place] Team SERVICE DATE: 10/17/2017 SERVICE TIME: 7:07 AM ASSESSMENT AND PLAN: Active Hospital Problems Diagnosis - Pulmonary alveolar hemorrhage - APS (antiphospholipid syndrome) (HCC) - CKD (chronic kidney disease) stage 3, GFR 30-59 ml/min - (HFpEF) heart failure with preserved ejection fraction (HCC) - HTN (hypertension) - Peripheral neuropathy - 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 Plan For Day: - Continue high dose steroids 100 mg q12h and PLEX tomrrow per heme - Monitor SCr - Monitor for bleeding; continue Fondaparinux as risk of clots > bleeding at this point - Improve pain control - DC seroquel as now extubated - DC Nasal canula and zuniga SUBJECTIVE: - No acute events overnight - Hgb uptrending, no further bleeding - 98% on RA - SCr back to baseline; complaining of chronic LE edema - 2 episodes of bloody sputum and new L lower abdominal pain OBJECTIVE: Patient Summary: 27 y/o female with 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 ? Major Interval Events: 10/13: Admitted to MICU. Intubated. 10/14: weaning to 2mcg Levo, CXR improved, started on ppx fondaparinux 10/15: Off NE drip. Off paralytics. Weaning off sedation but gets agitated. INR 2.0 this morning. Cr increased to 1.82. 10/16: PLEX today. Extubated after rounds. Doing well off ventilator. Plan for Today: -Continue therapeutic fondaparinux and monitor CBC -continue steroids -Monitor Cr - Monitor bleeding Assessment and Plan: Neuro: Sedated Plan: - Wean off sedation as tolerated Peripheral neuropathy: Plan: - Gabapentin Pulmonary: Acute hypoxic respiratory failure due to pulmonary hemorrhage: - Likely alveolar hemorrhage - Hx of DAH - Intubated 10/13 -CXR showing improvement after Rx with steroids Plan: - Monitor CBC/INR - slow AC trial with ppx first - Monitor ABGs - Stopped Vancomycin/Zosyn (receved 2 days) Cardiovascular: HFpEF: LVEF ~ 50% Plan: - Hold diuretics in the setting of bleeding HTN: Plan: - Hold amlodipine due to bleeding GI:No active issues. 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 endograft, on intermediate card tender AC with warfarin, plasmapharesis q2 weeks, prednisone 5 mg qD); aslo has Hx of HIT Dx 2013 by [facility] - Last plasmapharesis 10/05/17: was due for repeat on 10/16 Plan: - Consult hematology, appreciate recs - start with trial of prophylactic fondaparinux (given Hx of HIT) with plan for full AC in 1-2 days if patient tolerates - plan to keep current schedule for PLEX (10/16 and 10/18) - Continue high dose methylpred Prophylactic: - PPI FULL CODE VITAL SIGNS (last 24hrs min/max): Temp Av.5 ?C (97.7 ?F) Min: 36.2 ?C (97.2 ?F) Max: 37.1 ?C (98.8 ?F) Pulse Av.7 Min: 64 Max: 92 Arterial BP 1 Min: 157/62 Max: 194/78 Cuff BP Min: 152/70 Max: 185/84 Pain Score: 0/10 NET FLUID BALANCE Intake/Output Summary (Last 24 hours) at 10/17/17 1243 Last data filed at 10/17/17 0700 Gross per 24 hour Intake 525 ml Output 1355 ml Net -830 ml MEDICATIONS Current hospital medications: fondaparinux 7.5 mg injection (ARIXTRA) 7.5 mg SUBCUTANEOUS q 24 HR hydrALAZINE 50 mg tab(s) (APRESOLINE) 50 mg ORAL q 8 H sodium citrate 4% 3-6 mL catheter lock 3-6 mL INTRALUMINAL APHERESIS PRN amLODIPine 10 mg tab(s) (NORVASC) 10 mg ORAL/FEEDING TUBE DAILY diphenhydrAMINE 50 mg injection (BENADRYL) 50 mg INTRAVENOUS APHERESIS PRN methylPREDNISolone sod succinate(PF) 100 mg injection (Solu- MEDROL) 100 mg INTRAVENOUS q 12 H gabapentin 300 mg cap(s) (NEURONTIN) 300 mg ORAL AT BEDTIME fentaNYL 50 mcg/mL 50-100 mcg injection (SUBLIMAZE) 50-100 mcg INTRAVENOUS q 15 MIN PRN sulfamethoxazole-trimethoprim 800-160 mg 1 tablet (BACTRIM DS,SEPTRA DS) 1 tablet ORAL - potassium chloride ER 40 mEq tab(s) (K-DUR, KLOR-CON) 40 mEq ORAL/FEEDING TUBE q 2 H PRN magnesium sulfate in water 4-6 g in sterile water 50 ml 4- 6 g INTRAVENOUS PRN sodium phosphate 45 mmol in NaCl 0.9% 250 mL 45 mmol INTRAVENOUS PRN insulin regular human injection (short acting) (NovoLIN R,HumuLIN R) SUBCUTANEOUS q 6 H insulin regular human iv bolus 2-10 Units 2-10 Units INTRAVENOUS PRN dextrose 50% in water 25-50 mL syringe 12.5-25 g INTRAVENOUS PRN dextrose 40 % 15 g 15 g ORAL PRN glucagon 1 mg injection (GLUCAGEN) 1 mg SUBCUTANEOUS PRN pantoprazole 40 mg injection (PROTONIX) 40 mg INTRAVENOUS DAILY (6 AM) docusate 100 mg CUP (COLACE) 100 mg ORAL/FEEDING TUBE BID sennosides 8.8 mg/5 mL 8.8 mg (SENNA) 8.8 mg ORAL/FEEDING TUBE BID INDWELLING CATHETERS: Zuniga Catheter: Yes Other Lines/Drains: PIVx2 HEENT: Oral Mucosa: Dry mucous membranes Feeding Tube: No Eyes: PERRLA Neck: Unremarkable; No adenopathy or JVD Cardiovascular: Regular rhythm Respiratory: Clear to auscultation Abdomen: Soft and Nontender Extremities: Edema- Yes Peripheral Pulses- Present all extremities Skin: Abnormalities- No Breakdown- No Neurologic: Awake, oriented, Alert, Follows commands and Moving all extremities NUTRITION: Carb control diet Enteral Feeds: Yes DATA: Labs: CBC, Coags, BMP, Mg, Phos Recent Labs 10/16/17 2330 10/16/17 1246 10/16/17 0545 10/15/17 2310 10/14/17 2235 10/14/17 1333 WBC 7.66 7.49 4.64 5.73 < > 4.16 < > -- HB 9.2* 8.5* 7.7* 8.1* < > 7.2* < > -- HCT 29.3* 26.4* 24.7* 25.5* < > 23.6* < > -- PLT 105* 85* 96* 92* < > 71* < > -- INR 1.1 -- -- 1.4* -- 2.0* -- -- NA 136 -- -- 134* -- 135* -- -- K 4.6 -- -- 4.6 -- 5.0 -- -- CHLOR 97 -- -- 96* -- 97 -- -- CO2 23 -- -- 21* -- 22 -- -- BUN 50* -- -- 49* -- 45* -- -- CREAT 1.32* -- -- 1.79* -- 1.82* -- -- GLUC 138* -- -- 132* -- 124* -- -- IC -- -- -- -- -- -- -- 1.20 CA 9.0 -- -- 8.8 -- 8.3* -- -- MG 2.5* -- -- 2.6* -- 2.2 -- -- P 4.9* -- -- 6.5* -- 6.9* -- -- < > = values in this interval not displayed. Diagnostic tests reviewed for today's visit: Most recent labs and imaging results. Most recent labs Most recent imaging Most recent EKG PATIENT CHECKLIST ? Are restraints necessary: No ? Deep vein thrombosis prophylaxis administered? No. Contraindicated. ? Stress ulcer prophylaxis? Yes ? Nasogastric tube? No ? Zuniga catheter necessary? No ? Is central line essential? No ? Plan discussed with assigned RN? Yes ? Family updated within last 24 hours? Yes Code/Social/Dispo: Full Code SIGNATURE: Giovanny Blanco MD PGY-3 PATIENT NAME: Paloma Cannon DATE: October 17, 2017 TIME: 7:06 AM PAGER/CONTACT #: [phone] DR. FRED STONE, SR. HOSPITAL STAFF PHYSICIAN NOTE OF PERSONAL INVOLVEMENT IN CARE I have reviewed the clinical information obtained and documented by the resident and I personally participated in the fernandes components. I have discussed the case and management of the patient's care. The following comments revise or confirm relevant fernandes components of the note. Paloma Cannon is a 27 year old female who is admitted to the ICU. The principle issues discussed today and which we are managing at the critical care level are outlined in the hospital problem list summary below, which contains my edits and updates. 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 ? Major Interval Events: 10/13: Admitted to MICU. Intubated. 10/14: weaning to 2mcg Levo, CXR improved, started on ppx fondaparinux 10/15: Off NE drip. Off paralytics. Weaning off sedation but gets agitated. INR 2.0 this morning. Cr increased to 1.82. 10/16: PLEX today. Extubated after rounds. Doing well off ventilator. 10/17: Blood-tinged sputum, left-sided chest pain and increased oxygen requirement. For her, could be PE, but no other plan than to anticoagulate anyway. Kept fondaparinux at 7.5 dose. Hematology aware. Keep in MICU. Plan for Today: -Continue therapeutic fondaparinux and monitor CBC -continue steroids -Monitor Cr - Monitor bleeding Assessment and Plan: Neuro: Sedated Plan: - Wean off sedation as tolerated Peripheral neuropathy: Plan: - Gabapentin Pulmonary: Acute hypoxic respiratory failure due to pulmonary hemorrhage: - Likely alveolar hemorrhage - Hx of DAH - Intubated 10/13 -CXR showing improvement after Rx with steroids Plan: - Monitor CBC/INR - slow AC trial with ppx first - Monitor ABGs - Stopped Vancomycin/Zosyn (receved 2 days) Cardiovascular: HFpEF: LVEF ~ 50% Plan: - Hold diuretics in the setting of bleeding HTN: Plan: - Hold amlodipine due to bleeding GI:No active issues. 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 endograft, on senior living AC with warfarin, plasmapharesis q2 weeks, prednisone 5 mg qD); aslo has Hx of HIT Dx 2013 by [facility] - Last plasmapharesis 10/05/17: was due for repeat on 10/16 Plan: - Consult hematology, appreciate recs - start with trial of prophylactic fondaparinux (given Hx of HIT) with plan for full AC in 1-2 days if patient tolerates - plan to keep current schedule for PLEX (10/16 and 10/18) - Continue high dose methylpred Prophylactic: - PPI FULL CODE Problem list and plan/comments by problem: Active Hospital Problems as of 10/17/2017 Noted - Resolved Hospital APS (antiphospholipid syndrome) ([facility]) 11/29/2016 - Present Current Assessment AND Plan Assessment: severe thrombophilia PLAN: Following hematology recommendations for PLEX No cyclophosphamide -- it is removed by PLEX Keep her anticoagulated if possible. Even in setting of scant hemoptysis. Pulmonary alveolar hemorrhage 10/13/2017 - Present Current Assessment AND Plan Assessment: better now that treatment is under way. Still may have some hemorrhage, but not severe. PLAN: Continue PLEX and monitoring her condition. Extubated. 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 I managed/supervised life or organ supporting interventions that required frequent physician assessment. I devoted my full attention to the direct care of this patient for the amount of time indicated below. Time I spent with family or surrogate(s) is included only if the patient was incapable of providing the necessary information or participating in medical decision making. Time devoted to teaching and to any procedures I billed separately is not included. Critical Care Documentation: The patient has the following organ/system impairment(s): Acute blood loss, Acute heart failure (Combined systolic and diastolic), Acute kidney injury, Coagulopathy, Complex life-threatening medical problem(s), Respiratory failure (Acute, with Hypoxemia) and Severe metabolic disorder Time spent providing critical care services: 47 minutes. SIGNATURE: Stephane Austin MD [facility] PAGER:[phone] DATE of SERVICE: October 17, 2017 TIME of SERVICE: 5:17 PM CBC AND DIFFERENTIAL Collected: 10/16/2017 Status: F Source: [place] 11:30 PM [facility] REPOSITORY TYPE CODE TESTS RESULT OUT OF REFERENCE UNITS RANGE LAB WBC 3.70-11.00 k/uL WBC 7.66 LAB RBC 3.90-5.20 m/uL Low RBC 3.21 LAB HGB 11.5-15.5 g/dL Low Hemoglobin 9.2 LAB HCT 36.0-46.0 % Low Hematocrit 29.3 LAB MCV 80.0-100.0 fL MCV 91.3 LAB MCH 26.0-34.0 pG MCH 28.7 LAB MCHC 30.5-36.0 g/dL MCHC 31.4 LAB RDWCV 11.5-15.0 % RDW-CV High 19.0 LAB PLTCT 150-400 k/uL Low Platelet Count 105 Result Comment: Result checked and verified No clot detected. LAB MPV 9.0-12.7 fL MPV <<DO NOT REPORT>> LAB ANEUT % Neut% 95.5 LAB AANEUT 1.45-7.50 k/uL Abs Neut 7.31 LAB ALYMP % Lymph% 0.5 LAB AALYMP 1.00-4.00 k/uL Abs Low Lymph 0.04 LAB AMONO % [place]% 3.9 LAB AAMONO <0.87 k/uL Abs [place] 0.30 LAB AEOS % Eosin% 0.0 LAB AAEOS <0.46 k/uL Abs Eosin <0.03 LAB ABASO % Baso% 0.1 LAB AABASO <0.11 k/uL Abs Baso <0.03 LAB AUNRBC 0 /100 WBC NRBCs High 0.4 LAB ABNRBC <0.01 k/uL High Absolute nRBC 0.03 LAB DTYP DTYPE Auto Diff Performed By: #### CBCDIF, PT, CMP, MG1, PHOS #### [facility] [address] [place], [place] [address] PROTIME Collected: 10/16/2017 Status: F Source: [place] 11:30 PM [facility] REPOSITORY TYPE CODE TESTS RESULT OUT OF RANGE REFERENCE UNITS LAB PSEC 9.7-13.0 sec PT Sec 11.4 LAB INR 0.9-1.3 PT INR 1.1 Result Comment: Vitamin K Antagonist (VKA) Therapeutic Range: INR 2 to 3 (Target INR of 2.5) Note: For patients treated with VKA drugs, such as warfarin, the [place] [employer] 2012 Guideline recommends a therapeutic INR range of 2 to 3 (target INR of 2.5). This recommendation includes high-risk patients with antiphospholipid syndrome with previous arterial or venous thromboembolism, current-generation mechanical or bioprosthetic aortic heart valve replacement. Note: Patients with mechanical aortic valve replacement and additional risk factors for thromboembolic events (atrial fibrillation, previous thromboembolism, LV dysfunction, hypercoagulable conditions) or an older generation mechanical AVR (i.e., ball in-Cage) or any mechanical MVR should have a INR therapeutic range of 2.5 to 3.5 (target INR of 3). Michael GH, et al. Chest 2012, 141:7S-47S Diogenes RA, et al. [facility] 2017, 70: 252-289 Performed By: #### CBCDIF, PT, CMP, MG1, PHOS #### [facility] [address] [place], [place] [address] COMP METABOLIC PANEL Collected: 10/16/2017 Status: F Source: [place] 11:30 PM [facility] REPOSITORY TYPE CODE TESTS RESULT OUT OF REFERENCE UNITS RANGE LAB TP 6.3-8.0 g/dL Low Protein, Total 6.1 LAB ALB 3.9-4.9 g/dL Low Albumin 3.8 LAB CA 8.5-10.2 mg/dL Calcium, Total 9.0 LAB TBIL 0.2-1.3 mg/dL Bilirubin, Total 0.7 LAB ALKP 32-117 U/L Alkaline Phosphatase 48 LAB AST 13-35 U/L AST 14 LAB GLU 74-99 mg/dL Glucose High 138 Result Comment: The [place] [employer] (ADA) provides guidance for cutoff values for fasting glucose and random glucose. The ADA defines fasting as no caloric intake for at least 8 hours. Fas ting plasma glucose results between 100 to 125 mg/dL indicate increased risk for diabetes (prediabetes). Fasting plasma glucose results greater than or equal to 126 mg/dL meet the criteria for diagnosis of diabetes. In the absence of unequivocal hyperglycemia, results should be confirmed by repeat testing. In a patient with classic symptoms of hyperglycemia or hyperglycemic crisis, random plasma glucose results greater than or equal to 200 mg/dL meet the criteria for diagnosis of diabetes. Reference: Standards of Medical Care in Diabetes 2016, [place] [employer]. Diabetes Care. 2016.39(Suppl 1). LAB BUN 7-21 mg/dL BUN High 50 LAB CRET 0.58-0.96 mg/dL Creatinine High 1.32 LAB NA 136-144 mmol/L Sodium 136 LAB K 3.7-5.1 mmol/L Potassium 4.6 LAB CL 97-105 mmol/L Chloride 97 LAB CO2 22-30 mmol/L CO2 23 LAB AGAP 9-18 mmol/L Anion Gap 16 LAB ALT 7-38 U/L ALT 12 LAB GFRAA eGFR- Amer. 58 LAB GFRNAA . eGFR-All Other Races 48 Result Comment: eGFR (Estimated GFR) Units of measure: mL/min/1.73 meters squared eGFR is derived from the reexpressed MDRD Study equation using the following parameters: serum creatinine, age, gender and race. The creatinine assay has been calibrated to be traceable to IDMS. An eGFR <60 mL/min/1.73m2 for >3 months is consistent with chronic kidney disease. Refer to KDOQI guidelines for clinical interpretation. In patients with unstable renal function, e.g. those with acute kidney injury, the eGFR may not accurately reflect actual GFR. Performed By: #### CBCDIF, PT, CMP, MG1, PHOS #### [facility] [address] [place] [address] MAGNESIUM Collected: 10/16/2017 Status: F Source: [place] 11:30 PM [facility] REPOSITORY TYPE CODE TESTS RESULT OUT OF REFERENCE UNITS RANGE LAB MG 1.7-2.3 mg/dL High Magnesium 2.5 Performed By: #### CBCDIF, PT, CMP, MG1, PHOS #### [facility] [address] [place] [address] PHOSPHORUS Collected: 10/16/2017 Status: F Source: [place] 11:30 PM [facility] REPOSITORY TYPE CODE TESTS RESULT OUT OF REFERENCE UNITS RANGE LAB PHOS 2.7-4.8 mg/dL High Phosphorus 4.9 Performed By: #### CBCDIF, PT, CMP, MG1, PHOS #### [place] [address] FONDAPARINUX ASSAY Collected: 10/16/2017 Status: F Source: [place] 3:00 PM [facility] REPOSITORY TYPE CODE TESTS RESULT OUT OF REFERENCE UNITS RANGE LAB JEF 0.00 mg/L Fondaparinux High 1.07 Result Comment: (NOTE) In patients undergoing treatment with fondaparinux sodium injection 2.5 mg, once daily, the peak steady-state plasma concentration is, on average, 0.39 to 0.50 mg/L and is reached approximately 3 hours post-dose. In these patients, the minimum steady-state plasma concentration is 0.14 to 0.19 mg/L. In patients with symptomatic deep vein thrombosis and pulmonary embolism undergoing treatment with fondaparinux sodium injection 5 mg (body weight <50 kg), 7.5 mg (body weight 50 to 100 kg), and 10 mg (body weight >100 kg) once daily, the ajjq-nkpnjw-okvhxxqh doses provide similar mean steady-state peaks and minimum plasma concentrations across all body weight categories. The mean peak steady-state plasma concentration is in the range of 1.20 to 1.26 mg/L. In these patients, the mean minimum steady-state plasma concentration is in the range of 0.46 to 0.62 mg/L. (Prescribing information for Arixtra from [employer], April 2010) Note: The fondaparinux assay is performed by an anti-Xa methodology and that comcomitant therapy with unfractionated or low molecular weight heparin could falsely elevate the fondaparinux levels. Performed By: #### FONDXA #### [facility] [address] [place] [id number] CASE MANAGEM Observed: 10/16/2017 Status: COMPLETED Source: [place] 2:57 PM [facility] REPOSITORY HNO ID: [id number] Author: Radha (Rn) JEFF Hope Service: Case Management Author Type: Registered Nurse Type: Care Mgt Progress Note Filed: 10/16/2017 2:57 PM Note Text: CARE MANAGEMENT PROGRESS NOTE SERVICE DATE: 10/16/2017 SERVICE TIME: 2:57 PM LOS: 3 days Needs Prior to Discharge: To Be Determined Plan for Today: - PLEX -wean sedation and vent as tolerated: added Quetipaine for agitation -Continue therapeutic fondaparinux and monitor CBC -continue steroids -Monitor Cr - Monitor bleeding SIGNATURE: Radha Hope RN PATIENT NAME: Paloma Cannon DATE: October 16, 2017 TIME: 2:57 PM PAGER/CONTACT #: [phone] CBC Collected: 10/16/2017 Status: F Source: [place] 12:46 PM [facility] REPOSITORY TYPE CODE TESTS RESULT OUT OF REFERENCE UNITS RANGE LAB WBC 3.70-11.00 k/uL WBC 7.49 LAB RBC 3.90-5.20 m/uL Low RBC 2.95 LAB HGB 11.5-15.5 g/dL Low Hemoglobin 8.5 LAB HCT 36.0-46.0 % Low Hematocrit 26.4 LAB MCV 80.0-100.0 fL MCV 89.5 LAB MCH 26.0-34.0 pG MCH 28.8 LAB MCHC 30.5-36.0 g/dL MCHC 32.2 LAB RDWCV 11.5-15.0 % RDW-CV High 18.8 LAB PLTCT 150-400 k/uL Low Platelet Count 85 Result Comment: Result checked and verified No clot detected. 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 Interval Hx: She underwent PLEX today. Her next treatment is scheduled for Monday (10/18). No bleeding. She is extubated today. OBJECTIVE: PHYSICAL EXAMINATION: General: NAD HEENT: ?Grossly PERRLA, EOMI, anicteric Heart/CV: ?Grossly RR Lungs/Resp/Chest: ?Normal chest wall movement. Abd: ?Grossly ND, no HSM, no other masses Extremities/Skin: B/L swelling of the LABS/IMAGING/PATHOLOGY: Recent Labs 10/16/17 1246 10/16/17 0545 10/15/17 2310 10/15/17 1842 10/14/17 2235 10/13/17 2315 10/13/17 1300 WBC 7.49 4.64 5.73 4.84 < > 4.16 < > 11.80* < > 11.79* HB 8.5* 7.7* 8.1* 8.3* < > 7.2* < > 8.0* < > 8.4* MCV 89.5 89.8 90.1 90.1 < > 90.4 < > 91.7 < > 92.9 PLT 85* 96* 92* 98* < > 71* < > 75* < > 73* ABSNEUT -- -- 5.36 -- -- 3.99 -- 11.53* -- 10.87* ABSMONO -- -- 0.30 -- -- 0.13 -- 0.11 -- 0.20 < > = values in this interval not displayed. Recent Labs 10/15/17230910/14/17 2235 10/13/17 23110/13/17 1342 10/13/17 1300 NA 134* 135* 137 -- 142 K 4.6 5.0 5.2* -- 3.6* CHLOR 96* 97 99 -- 103 CO2 21* 22 24 27 24 BUN 49* 45* 34* -- 32* CREAT 1.79* 1.82* 1.39* -- 1.22* ALB 3.6* 3.4* 3.6* -- 3.4* TPROT 5.7* 5.4* 5.7* -- 5.1* CA 8.8 8.3* 8.3* -- 7.8* MG 2.6* 2.2 2.0 -- 1.9 ALT 11 13 17 -- 12 AST 13 13 22 -- 17 TBILI 0.4 0.5 1.2 -- 0.6 Recent Labs 10/15/17230910/14/17 2235 10/13/17 2315 10/13/17 1846 10/13/17 1300 09/29/17 1804 09/18/17 1236 09/06/17 0540 APTT -- -- -- -- 30.3 -- 33.8* 28.9 35.8* PTSEC 14.0* 19.4* 16.7* 16.8* 19.8* < > 20.3* 14.6* 13.9* INR 1.4* 2.0* 1.7* 1.7* 2.0* < > 2.1* 1.4* 1.4* < > = values in this interval not displayed. 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 A/P: Catastrophic APS with DAH, Extubated today. [] Continue with Fondaparinux to 7.5 mg/D (therapeutic dose) [] Will follow-up PT Mixing study, given persistent INR elevation off coumadin [] Monitor CBC: if any bleeding, discuss holding AC [] Underwent PLEX today. Next PLEx scheduled for 10/18/17 [] Decrease Solumedrol to 100mg Q12H if Ok with the primary service. Case discussed with Dr. Blanca Christopher MD Fellow, Hematology and Medical Oncology Pager: [phone] DR. [facility] ST[facility], SR. HOSPITAL STAFF PHYSICIAN NOTE OF PERSONAL INVOLVEMENT IN CARE I have reviewed the history and physical examination and progress note obtained and documented by the fellow and I personally participated in the fernandes components. I have discussed the case and management of the patient's care. The following comments revise or confirm relevant fernandes components of their note. Patient doing really well Alert and oriented and answering questions PLEX today Continue HD steroid today Tomorrow would be reasonable to change to a lower dose of Solumedrol 100mg IV Q 12 hours Continue fondiparinux Following with you. SIGNATURE: Dominique Rios DO PAGER: [phone] DATE of SERVICE: October 16, 2017 TIME of SERVICE: 7:15 PM PROCEDURE Observed: 10/16/2017 Status: COMPLETED Source: [place] 10:21 AM [facility] REPOSITORY O ID: [id number] Author: Lisseth Claudio MD Service: Apheresis Author Type: Physician Type: Procedures Filed: 10/16/2017 3:16 PM Note Text: APHERESIS THERAPEUTIC PROCEDURE NOTE SERVICE DATE: 10/16/2017 SERVICE TIME: 1005 TREATMENT #: 87. Pre-treatment labs drawn: No PLAN Next treatment-Possibly Monday10/18/17 : 1990 Age: [age] year old Gender: female Patient identification confirmed patient, birthdate and MRN Apheresis Requested By: Hematology Diagnosis: Anti-Phospholipid Antibody Syndrome/DAH Treatment Procedure: Plasmapheresis Protocol: N/A LABS Recent Labs 10/16/17 0545 10/15/17 2310 10/13/17 1300 WBC 4.64 5.73 < > 11.79* HB 7.7* 8.1* < > 8.4* HCT 24.7* 25.5* < > 27.6* PLT 96* 92* < > 73* INR -- 1.4* < > 2.0* APTT -- -- -- 30.3 BUN -- 49* < > 32* CREAT -- 1.79* < > 1.22* ALB -- 3.6* < > 3.4* CA -- 8.8 < > 7.8* MG -- 2.6* < > 1.9 TBILI -- 0.4 < > 0.6 < > = values in this interval not displayed. INTERVAL HISTORY: Patient reports N/A- patient intubated. Is awake and alert and able to communicate with pen and paper. No questions at this time. PRE-TREATMENT BP 167/90 Pulse 84 Temp 36.8 ?C (98.2 ?F) Resp 6 Ht 160 cm (5' 3) Wt 110.4 kg (243 lb 6.2 oz) SpO2 100% BMI 43.11 kg/m2 Treatment performed at: Unit/Bed- G061 006/G061-06 Date: 10/16/2017 Catheter Site Dressing: Dry and intact. Venous access: left blue port of SC double lumen catheter, venous return: left red port of SC double lumen catheter. PRE-MEDICATION diphenhydramine 50mg IV TREATMENT PARAMETER DATA Whole blood processed: 6587 ml Volume removed: 3895 ml Volume replaced: Albumin 1000 ml, NSS 500 ml and FFP 2090 ml ACD to patient: 82 ml Calcium gluconate 10%: 30 ml Extra fluids: None Net fluid balance: +23 ml POST-TREATMENT Vital signs: BP 162/69 HR 73 RR 11 TEMP NA Labs Drawn: None At completion of treatment: Lumens flushed with 10 ml NSS and with 3 ml 4% sodium citrate Patient tolerated treatment well without complications: Yes Report given to unit nurse. Patient remains in hospital bed. Treatment Started by Apheresis Nurse: Lou Juarez RN Treatment Completed by Apheresis Nurse: Lou Juarez RN DR. [facility], [facility]. HOSPITAL STAFF PHYSICIAN NOTE OF PERSONAL INVOLVEMENT IN CARE Mrs. Cannon tolerated the treatment without any acute events. Her next treatment will likely be on Monday (10-18). Will continue to coordinate with the MICU and Hematology teams. I reviewed the patients labs, medications and allergies prior to proceeding with this therapeutic treatment and discussed the case and parameters with the apheresis nurse. I have reviewed this therapeutic progress note documented by the apheresis nurse. I personally participated in all pertinent aspects and fernandes components of the therapeutic treatment. I was present during the treatment. Signature: Lisseth Claudio MD October 16, 2017 3:10 PM Pager: [phone] PROGRESS Observed: 10/16/2017 Status: COMPLETED Source: [place] 6:45 AM [facility] REPOSITORY O ID: [id number] Author: Stephane Austin Service: Critical Care Author Type: Physician Type: Progress Notes Filed: 10/16/2017 3:53 PM Note Text: MICU PROGRESS NOTE WITH [facility] Primary Service: [place] Team SERVICE DATE: 10/16/2017 SERVICE TIME: 6:46 AM ASSESSMENT AND PLAN: Active Hospital Problems Diagnosis - Pulmonary alveolar hemorrhage - APS (antiphospholipid syndrome) (HCC) - Recurrent deep vein thrombosis (DVT) (HCC) - CKD (chronic kidney disease) stage 3, GFR 30-59 ml/min - History of heparin-induced thrombocytopenia - (HFpEF) heart failure with preserved ejection fraction (HCC) - HTN (hypertension) - Peripheral neuropathy - Renal vein thrombosis (HCC) - IVC thrombosis (HCC) Admission Date: 10/13/2017 Day #: 4 in the MICU. Plan For Day: - PLEX today -wean sedation and vent as tolerated: added Quetipaine for agitation -Continue therapeutic fondaparinux and monitor CBC -continue steroids -Monitor Cr - Monitor for bleeding SUBJECTIVE: - No acute events overnight - Antibiotics stopped 10/15 - PLEX planned for today - Hgb stable OBJECTIVE: Patient Summary: 27 y/o female with 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 ? Major Interval Events: 10/13: Admitted to MICU. Intubated. 10/14: weaning to 2mcg Levo, CXR improved, started on ppx fondaparinux 10/15: Off NE drip. Off paralytics. Weaning off sedation but gets agitated. INR 2.0 this morning. Cr increased to 1.82. 10/16: PLEX today Plan for Today: - PLEX -wean sedation and vent as tolerated: added Quetipaine for agitation -Continue therapeutic fondaparinux and monitor CBC -continue steroids -Monitor Cr - Monitor bleeding Assessment and Plan: Neuro: Sedated Plan: - Wean off sedation as tolerated Peripheral neuropathy: Plan: - Gabapentin Pulmonary: Acute hypoxic respiratory failure due to pulmonary hemorrhage: - Likely alveolar hemorrhage - Hx of DAH - Intubated 10/13 -CXR showing improvement after Rx with steroids Plan: - Monitor CBC/INR - slow AC trial with ppx first - Monitor ABGs - Stopped Vancomycin/Zosyn (receved 2 days) Cardiovascular: HFpEF: LVEF ~ 50% Plan: - Hold diuretics in the setting of bleeding HTN: Plan: - Hold amlodipine due to bleeding GI:No active issues. 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 endograft, on senior living AC with warfarin, plasmapharesis q2 weeks, prednisone 5 mg qD); aslo has Hx of HIT Dx 2013 by [facility] - Last plasmapharesis 10/05/17: was due for repeat on 10/16 Plan: - Consult hematology, appreciate recs - start with trial of prophylactic fondaparinux (given Hx of HIT) with plan for full AC in 1-2 days if patient tolerates - plan to keep current schedule for PLEX (10/16 and 10/18) - Continue high dose methylpred Prophylactic: - PPI FULL CODE VITAL SIGNS (last 24hrs min/max): Temp Av.2 ?C (98.9 ?F) Min: 36.9 ?C (98.4 ?F) Max: 37.4 ?C (99.3 ?F) Pulse Av.6 Min: 58 Max: 75 Arterial BP 1 Min: 134/49 Max: 169/74 Cuff No Data Recorded Pain Score: 0/10 Vital signs reviewed. NET FLUID BALANCE Intake/Output Summary (Last 24 hours) at 10/16/17 0654 Last data filed at 10/16/17 0600 Gross per 24 hour Intake 2523 ml Output 1300 ml Net 1223 ml MEDICATIONS Current hospital medications: fentaNYL 50 mcg/mL 50-100 mcg injection (SUBLIMAZE) 50-100 mcg INTRAVENOUS q 15 MIN PRN fentaNYL 20 mcg/mL iv infusion in NaCl 0.9% 100 mL 50-250 mcg/hr INTRAVENOUS CONTINUOUS propofol iv bolus 20 mg (DIPRIVAN) 20 mg INTRAVENOUS q 30 MIN PRN propofol infusion (DIPRIVAN) 5-60 mcg/kg/min INTRAVENOUS CONTINUOUS QUEtiapine 25 mg tab(s) (SEROquel) 25 mg ORAL/FEEDING TUBE DAILY (7 AM) QUEtiapine 50 mg tab(s) (SEROquel) 50 mg ORAL/FEEDING TUBE AT BEDTIME NaCl 0.9% iv infusion 5-30 mL/hr INTRAVENOUS CONTINUOUS fondaparinux 7.5 mg injection (ARIXTRA) 7.5 mg SUBCUTANEOUS q 24 HR gabapentin 100 mg cap(s) (NEURONTIN) 100 mg ORAL AT BEDTIME sulfamethoxazole-trimethoprim 800-160 mg 1 tablet (BACTRIM DS,SEPTRA DS) 1 tablet ORAL - potassium chloride ER 40 mEq tab(s) (K-DUR, KLOR-CON) 40 mEq ORAL/FEEDING TUBE q 2 H PRN magnesium sulfate in water 4-6 g in sterile water 50 ml 4- 6 g INTRAVENOUS PRN sodium phosphate 45 mmol in NaCl 0.9% 250 mL 45 mmol INTRAVENOUS PRN insulin regular human injection (short acting) (NovoLIN R,HumuLIN R) SUBCUTANEOUS q 6 H insulin regular human iv bolus 2-10 Units 2-10 Units INTRAVENOUS PRN dextrose 50% in water 25-50 mL syringe 12.5-25 g INTRAVENOUS PRN dextrose 40 % 15 g 15 g ORAL PRN glucagon 1 mg injection (GLUCAGEN) 1 mg SUBCUTANEOUS PRN pantoprazole 40 mg injection (PROTONIX) 40 mg INTRAVENOUS DAILY (6 AM) methylPREDNISolone sodium succinate 250 mg in NaCl 0.9% 100 mL (Solu-MEDROL) 250 mg INTRAVENOUS q 12 H white petrolatum-mineral Oil 83-15 % (LUBRIFRESH P.M.) BOTH EYES q 6 H docusate 100 mg CUP (COLACE) 100 mg ORAL/FEEDING TUBE BID sennosides 8.8 mg/5 mL 8.8 mg (SENNA) 8.8 mg ORAL/FEEDING TUBE BID Chlorhexidine Gluconate 0.12 % 15 mL (PERIDEX) 15 mL ORAL QID INDWELLING CATHETERS: Central Line: L chest apharesis line Zuniga Catheter: Yes Other Lines/Drains: PIVx3, ETT, OG Oral Mucosa:?ETT in place? Eyes:?PERRLA???Neck:?Unremarkable; No adenopathy or JVD Cardiovascular:?Regular rhythm Respiratory:?Reduced breath sounds bilat at bases Abdomen: Soft and Nontender Extremities:?Edema-?Yes (R>L)??Peripheral Pulses-?Present all extremities???Capillary Refill-?less than 3 seconds Skin:?Abnormalities- No???Breakdown-?No? Neurologic:?Sedated but arousable DATA: Labs: CBC, Coags, BMP, Mg, Phos Recent Labs 10/16/17 0545 10/15/17 2310 10/15/17 1842 10/14/17 2235 10/14/17 1333 10/14/17 0031 10/13/17 2315 10/13/17 1708 10/13/17 1300 WBC 4.64 5.73 4.84 < > 4.16 < > -- < > -- 11.80* < > -- -- 11.79* HB 7.7* 8.1* 8.3* < > 7.2* < > -- < > -- 8.0* < > -- -- 8.4* HCT 24.7* 25.5* 26.3* < > 23.6* < > -- < > -- 26.6* < > -- -- 27.6* PLT 96* 92* 98* < > 71* < > -- < > -- 75* < > -- -- 73* INR -- 1.4* -- -- 2.0* -- -- -- -- 1.7* < > -- -- 2.0* APTT -- -- -- -- -- -- -- -- -- -- -- -- -- 30.3 NA -- 134* -- -- 135* -- -- -- -- 137 -- -- -- 142 K -- 4.6 -- -- 5.0 -- -- -- -- 5.2* -- -- -- 3.6* CHLOR -- 96* -- -- 97 -- -- -- -- 99 -- -- -- 103 CO2 -- 21* -- -- 22 -- -- -- -- 24 -- -- < > 24 BUN -- 49* -- -- 45* -- -- -- -- 34* -- -- -- 32* CREAT -- 1.79* -- -- 1.82* -- -- -- -- 1.39* -- -- -- 1.22* GLUC -- 132* -- -- 124* -- -- -- -- 120* -- -- -- 48* IC -- -- -- -- -- -- 1.20 -- 1.14 -- -- 1.10 < > -- CA -- 8.8 -- -- 8.3* -- -- -- -- 8.3* -- -- -- 7.8* MG -- 2.6* -- -- 2.2 -- -- -- -- 2.0 -- -- -- 1.9 P -- 6.5* -- -- 6.9* -- -- -- -- 5.6* -- -- -- 4.2 < > = values in this interval not displayed. Diagnostic tests reviewed for today's visit: Most recent labs and imaging results. Most recent labs Most recent imaging Most recent EKG PATIENT CHECKLIST ? Are restraints necessary: No ? Deep vein thrombosis prophylaxis administered? Yes ? Stress ulcer prophylaxis? Yes ? Nasogastric tube? Yes ? Zuniga catheter necessary? Yes ? Is central line essential? Yes ? Plan discussed with assigned RN? Yes ? Family updated within last 24 hours? Yes ? Code/Social/Dispo: Full SIGNATURE: Giovanny Blanco MD PGY-3 PATIENT NAME: Paloma Cannon DATE: October 16, 2017 TIME: 6:46 AM PAGER/CONTACT #: [phone] DR. FRED STONE, SR. HOSPITAL STAFF PHYSICIAN NOTE OF PERSONAL INVOLVEMENT IN CARE I have reviewed the clinical information obtained and documented by the resident and I personally participated in the fernandes components. I have discussed the case and management of the patient's care. The following comments revise or confirm relevant fernandes components of the note. Paloma Cannon is a 27 year old female who is admitted to the ICU. The principle issues discussed today and which we are managing at the critical care level are outlined in the hospital problem list summary below, which contains my edits and updates. 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 ? Major Interval Events: 10/13: Admitted to MICU. Intubated. 10/14: weaning to 2mcg Levo, CXR improved, started on ppx fondaparinux 10/15: Off NE drip. Off paralytics. Weaning off sedation but gets agitated. INR 2.0 this morning. Cr increased to 1.82. 10/16: PLEX today. Extubated after rounds. Doing well off ventilator. Plan for Today: - PLEX -wean sedation and vent as tolerated: added Quetipaine for agitation -Continue therapeutic fondaparinux and monitor CBC -continue steroids -Monitor Cr - Monitor bleeding Assessment and Plan: Neuro: Sedated Plan: - Wean off sedation as tolerated Peripheral neuropathy: Plan: - Gabapentin Pulmonary: Acute hypoxic respiratory failure due to pulmonary hemorrhage: - Likely alveolar hemorrhage - Hx of DAH - Intubated 10/13 -CXR showing improvement after Rx with steroids Plan: - Monitor CBC/INR - slow AC trial with ppx first - Monitor ABGs - Stopped Vancomycin/Zosyn (receved 2 days) Cardiovascular: HFpEF: LVEF ~ 50% Plan: - Hold diuretics in the setting of bleeding HTN: Plan: - Hold amlodipine due to bleeding GI:No active issues. 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 endograft, on senior living AC with warfarin, plasmapharesis q2 weeks, prednisone 5 mg qD); aslo has Hx of HIT Dx 2013 by [facility] - Last plasmapharesis 10/05/17: was due for repeat on 10/16 Plan: - Consult hematology, appreciate recs - start with trial of prophylactic fondaparinux (given Hx of HIT) with plan for full AC in 1-2 days if patient tolerates - plan to keep current schedule for PLEX (10/16 and 10/18) - Continue high dose methylpred Prophylactic: - PPI FULL CODE Problem list and plan/comments by problem: Active Hospital Problems as of 10/16/2017 Noted - Resolved Hospital APS (antiphospholipid syndrome) (HCC) 11/29/2016 - Present Current Assessment AND Plan Assessment: severe thrombophilia PLAN: Following hematology recommendations for PLEX No cyclophosphamide -- it is removed by PLEX Pulmonary alveolar hemorrhage 10/13/2017 - Present Current Assessment AND Plan Assessment: better now that treatment is under way PLAN: Continue PLEX and monitoring her condition. Okay to extubate. CKD (chronic kidney disease) stage 3, GFR 30-59 ml/min 07/06/2016 - Present (HFpEF) heart failure with preserved ejection fraction (HCC) 02/20/2016 - Present Overview HTN (hypertension) 10/08/2015 - Present Peripheral neuropathy 04/14/2016 - Present IVC thrombosis (HCC) 03/24/2017 - Present Renal vein thrombosis (HCC) 03/24/2017 - Present This patient has a high probability of sudden, clinically significant deterioration, which requires the highest level of physician preparedness to intervene urgently. I managed/supervised life or organ supporting interventions that required frequent physician assessment. I devoted my full attention to the direct care of this patient for the amount of time indicated below. Time I spent with family or surrogate(s) is included only if the patient was incapable of providing the necessary information or participating in medical decision making. Time devoted to teaching and to any procedures I billed separately is not included. Critical Care Documentation: The patient has the following organ/system impairment(s): Coagulopathy, Complex life-threatening medical problem(s), Respiratory failure (Acute, with Hypoxemia) and Severe metabolic disorder Time spent providing critical care services: 33 minutes. SIGNATURE: Stephane Austin MD [facility] PAGER:[phone] DATE of SERVICE: October 16, 2017 TIME of SERVICE: 3:52 PM CBC Collected: 10/16/2017 Status: F Source: [place] 5:45 AM [facility] REPOSITORY TYPE CODE TESTS RESULT OUT OF REFERENCE UNITS RANGE LAB WBC 3.70-11.00 k/uL WBC 4.64 LAB RBC 3.90-5.20 m/uL Low RBC 2.75 LAB HGB 11.5-15.5 g/dL Low Hemoglobin 7.7 LAB HCT 36.0-46.0 % Low Hematocrit 24.7 LAB MCV 80.0-100.0 fL MCV 89.8 LAB MCH 26.0-34.0 pG MCH 28.0 LAB MCHC 30.5-36.0 g/dL MCHC 31.2 LAB RDWCV 11.5-15.0 % RDW-CV High 19.1 LAB PLTCT 150-400 k/uL Low Platelet Count 96 Result Comment: Result checked and verified No clot detected. LAB MPV 9.0-12.7 fL MPV High 13.5 LAB ABSNUC <0.01 k/uL High Absolute nRBC 0.04 Performed By: #### CBC #### [facility] [address] [place], [place] [address] PROTIME Collected: 10/15/2017 Status: F Source: [place] 11:10 PM [facility] REPOSITORY TYPE CODE TESTS RESULT OUT OF RANGE REFERENCE UNITS LAB PSEC 9.7-13.0 sec High PT Sec 14.0 LAB INR 0.9-1.3 High PT INR 1.4 Result Comment: Vitamin K Antagonist (VKA) Therapeutic Range: INR 2 to 3 (Target INR of 2.5) Note: For patients treated with VKA drugs, such as warfarin, the [place] [employer] 2012 Guideline recommends a therapeutic INR range of 2 to 3 (target INR of 2.5). This recommendation includes high-risk patients with antiphospholipid syndrome with previous arterial or venous thromboembolism, current-generation mechanical or bioprosthetic aortic heart valve replacement. Note: Patients with mechanical aortic valve replacement and additional risk factors for thromboembolic events (atrial fibrillation, previous thromboembolism, LV dysfunction, hypercoagulable conditions) or an older generation mechanical AVR (i.e., ball in-Cage) or any mechanical MVR should have a INR therapeutic range of 2.5 to 3.5 (target INR of 3). Michael GH, et al. Chest 2012, 141:7S-47S Diogenes RA et al. [facility] 2017, 70: 252-289 Performed By: #### PT, CBCDIF, CMP, MG1, PHOS #### [facility] [address] [place], [place] [address] CBC AND DIFFERENTIAL Collected: 10/15/2017 Status: F Source: [place] 11:10 PM [facility] REPOSITORY TYPE CODE TESTS RESULT OUT OF REFERENCE UNITS RANGE LAB WBC 3.70-11.00 k/uL WBC 5.73 LAB RBC 3.90-5.20 m/uL Low RBC 2.83 LAB HGB 11.5-15.5 g/dL Low Hemoglobin 8.1 LAB HCT 36.0-46.0 % Low Hematocrit 25.5 LAB MCV 80.0-100.0 fL MCV 90.1 LAB MCH 26.0-34.0 pG MCH 28.6 LAB MCHC 30.5-36.0 g/dL MCHC 31.8 LAB RDWCV 11.5-15.0 % RDW-CV High 18.9 LAB PLTCT 150-400 k/uL Low Platelet Count 92 Result Comment: Result checked and verified No clot detected. LAB MPV 9.0-12.7 fL MPV <<DO NOT REPORT>> LAB ANEUT % Neut% 93.6 LAB AANEUT 1.45-7.50 k/uL Abs Neut 5.36 LAB ALYMP % Lymph% 1.2 LAB AALYMP 1.00-4.00 k/uL Abs Low Lymph 0.07 LAB AMONO % [place]% 5.2 LAB AAMONO <0.87 k/uL Abs [place] 0.30 LAB AEOS % Eosin% 0.0 LAB AAEOS <0.46 k/uL Abs Eosin <0.03 LAB ABASO % Baso% 0.0 LAB AABASO <0.11 k/uL Abs Baso <0.03 LAB AUNRBC 0 /100 WBC NRBCs High 0.5 LAB ABNRBC <0.01 k/uL High Absolute nRBC 0.03 LAB DTYP DTYPE Auto Diff Performed By: #### PT, CBCDIF, CMP, MG1, PHOS #### [facility] [address] [place], [place] [address] COMP METABOLIC PANEL Collected: 10/15/2017 Status: F Source: [place] 11:10 PM [facility] REPOSITORY TYPE CODE TESTS RESULT OUT OF REFERENCE UNITS RANGE LAB TP 6.3-8.0 g/dL Low Protein, Total 5.7 LAB ALB 3.9-4.9 g/dL Low Albumin 3.6 LAB CA 8.5-10.2 mg/dL Calcium, Total 8.8 LAB TBIL 0.2-1.3 mg/dL Bilirubin, Total 0.4 LAB ALKP 32-117 U/L Alkaline Phosphatase 55 LAB AST 13-35 U/L AST 13 LAB GLU 74-99 mg/dL Glucose High 132 Result Comment: The [place] [employer] (ADA) provides guidance for cutoff values for fasting glucose and random glucose. The ADA defines fasting as no caloric intake for at least 8 hours. Fas ting plasma glucose results between 100 to 125 mg/dL indicate increased risk for diabetes (prediabetes). Fasting plasma glucose results greater than or equal to 126 mg/dL meet the criteria for diagnosis of diabetes. In the absence of unequivocal hyperglycemia, results should be confirmed by repeat testing. In a patient with classic symptoms of hyperglycemia or hyperglycemic crisis, random plasma glucose results greater than or equal to 200 mg/dL meet the criteria for diagnosis of diabetes. Reference: Standards of Medical Care in Diabetes 2016, [place] [employer]. Diabetes Care. 2016.39(Suppl 1). LAB BUN 7-21 mg/dL BUN High 49 LAB CRET 0.58-0.96 mg/dL Creatinine High 1.79 LAB NA 136-144 mmol/L Low Sodium 134 LAB K 3.7-5.1 mmol/L Potassium 4.6 LAB CL 97-105 mmol/L Low Chloride 96 LAB CO2 22-30 mmol/L Low CO2 21 LAB AGAP 9-18 mmol/L Anion Gap 17 LAB ALT 7-38 U/L ALT 11 LAB GFRAA eGFR- Amer. 41 LAB GFRNAA . eGFR-All Other Races 34 Result Comment: eGFR (Estimated GFR) Units of measure: mL/min/1.73 meters squared eGFR is derived from the reexpressed MDRD Study equation using the following parameters: serum creatinine, age, gender and race. The creatinine assay has been calibrated to be traceable to IDMS. An eGFR <60 mL/min/1.73m2 for >3 months is consistent with chronic kidney disease. Refer to KDOQI guidelines for clinical interpretation. In patients with unstable renal function, e.g. those with acute kidney injury, the eGFR may not accurately reflect actual GFR. Performed By: #### PT, CBCDIF, CMP, MG1, PHOS #### [facility] [address] [place], [place] [address] MAGNESIUM Collected: 10/15/2017 Status: F Source: [place] 11:10 PM [facility] REPOSITORY TYPE CODE TESTS RESULT OUT OF REFERENCE UNITS RANGE LAB MG 1.7-2.3 mg/dL High Magnesium 2.6 Performed By: #### PT, CBCDIF, CMP, MG1, PHOS #### [place] [id number] [place], [place] [address] PHOSPHORUS Collected: 10/15/2017 Status: F Source: [place] 11:10 PM [facility] REPOSITORY TYPE CODE TESTS RESULT OUT OF REFERENCE UNITS RANGE LAB PHOS 2.7-4.8 mg/dL High Phosphorus 6.5 Performed By: #### PT, CBCDIF, CMP, MG1, PHOS #### [place] [address] CBC Collected: 10/15/2017 Status: F Source: [place] 6:42 PM [facility] REPOSITORY TYPE CODE TESTS RESULT OUT OF REFERENCE UNITS RANGE LAB WBC 3.70-11.00 k/uL WBC 4.84 LAB RBC 3.90-5.20 m/uL Low RBC 2.92 LAB HGB 11.5-15.5 g/dL Low Hemoglobin 8.3 LAB HCT 36.0-46.0 % Low Hematocrit 26.3 LAB MCV 80.0-100.0 fL MCV 90.1 LAB MCH 26.0-34.0 pG MCH 28.4 LAB MCHC 30.5-36.0 g/dL MCHC 31.6 LAB RDWCV 11.5-15.0 % RDW-CV High 19.1 LAB PLTCT 150-400 k/uL Low Platelet Count 98 Result Comment: Result checked and verified No clot detected. LAB MPV 9.0-12.7 fL MPV <<DO NOT REPORT>> LAB ABSNUC <0.01 k/uL 0.05 High Absolute nRBC Performed By: #### CBC #### [facility] [address] [place], [place] [address] PT MIXING STUDY Collected: 10/15/2017 Status: F Source: [place] 6:42 PM [facility] REPOSITORY TYPE CODE TESTS RESULT OUT OF REFERENCE UNITS RANGE LAB PTSC <13.1 sec High PT Screen 15.8 Result Comment: Result rechecked. LAB PTMIX1 <13.1 sec PT 1:1 Mix 10.6 LAB PTMINT Interp PT Mix (NOTE) Result Comment: Performing Pathologist: Dr. Newton Figueroa M.D., Ph.D. Abnormal - see comment below. The PT is elevated. After a 1:1 mix of patient:normal plasma, the PT result corrects to within the reference range. An inhibitor of the extrinsic and/or common pathway is unlikely. Performed By: #### PTMIX #### [facility] [address] [place], [place] [address] CONSULT PROG Observed: 10/15/2017 Status: COMPLETED Source: [place] 1:58 PM [facility] REPOSITORY HNO ID: [id number] Author: Dominique Rios Service: Hematology Author Type: Physician Type: Consult Progress Note Filed: 10/15/2017 2:08 PM Note Text: Brief Hematology Note: HPI: 27 y/o female with PMHx of Triple-positive APS diagnosed in 2013 (catastrophic APS complicated by PE/DVT), needing plasmapheresis q2 weeks, Diffuse Alveolar Hemorrhage (On prednisone and Cytoxan), who was admitted to MICU for further management of alveolar hemorrhage s/p intubation. Interval Hx: 10/14: chest x-ray appeared improved. No bleeding. Fondaparinux was started at low dose of 2.5mg. DVT US was negative for acute DVT; +for R chronic common femoral DVT; technically limited study. Today, pt remained intubated, sedated, unresponsive. OBJECTIVE: LABS/IMAGING/PATHOLOGY: Recent Labs 10/15/17 1223 10/15/17 0540 10/14/17 2235 10/14/17 1842 10/14/17 1327 10/13/17 2315 10/13/17 1300 09/29/17 2347 WBC 5.03 4.66 4.16 4.49 5.09 < > 11.80* < > 11.79* < > 5.27 HB 7.9* 7.6* 7.2* 7.2* 7.4* < > 8.0* < > 8.4* < > 7.9* MCV 89.3 91.1 90.4 90.8 90.5 < > 91.7 < > 92.9 < > 88.4 PLT -- 79* 71* 71* 70* < > 75* < > 73* < > 43* ABSNEUT -- -- 3.99 -- -- -- 11.53* -- 10.87* -- 4.64 ABSMONO -- -- 0.13 -- -- -- 0.11 -- 0.20 -- 0.32 < > = values in this interval not displayed. Recent Labs 10/14/17 2235 10/13/17 2315 10/13/17 1342 10/13/17 1300 10/05/17 0504 10/03/17 0400 09/29/17 2347 NA 135* 137 -- 142 138 < > 137 < > 133* K 5.0 5.2* -- 3.6* 4.5 < > 4.6 < > 3.8 CHLOR 97 99 -- 103 101 < > 102 < > 97 CO2 22 24 27 24 21* < > 22 < > 21* BUN 45* 34* -- 32* 41* < > 28* < > 20 CREAT 1.82* 1.39* -- 1.22* 1.28* < > 1.17* < > 1.13* ALB 3.4* 3.6* -- 3.4* -- -- -- -- 3.5* TPROT 5.4* 5.7* -- 5.1* -- -- -- -- 5.8* CA 8.3* 8.3* -- 7.8* 8.7 < > 8.6 < > 8.2* MG 2.2 2.0 -- 1.9 -- -- 2.0 < > 1.8 ALT 13 17 -- 12 -- -- -- -- 6* AST 13 22 -- 17 -- -- -- -- 14 TBILI 0.5 1.2 -- 0.6 -- -- -- -- 0.7 < > = values in this interval not displayed. Recent Labs 10/14/17 2235 10/13/17 2315 10/13/17 1846 10/13/17 1300 09/29/17 1804 09/18/17 1236 09/06/17 0540 APTT -- -- -- 30.3 -- 33.8* 28.9 35.8* PTSEC 19.4* 16.7* 16.8* 19.8* < > 20.3* 14.6* 13.9* INR 2.0* 1.7* 1.7* 2.0* < > 2.1* 1.4* 1.4* < > = values in this interval not displayed. 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 A/P: Catastrophic APS with DAH, still intubated. [] Increase Fondaparinux to 7.5 mg/D (therapeutic dose) [] Check PT Mixing study, given persistent INR elevation off coumadin [] Monitor CBC: if any bleeding, discuss holding AC [] PLEx scheduled for 10/16/17 Zain Espitia MD Fellow, Hematology and Medical Oncology Pager: [phone] DR. FRED STONE, SR. HOSPITAL STAFF PHYSICIAN NOTE OF PERSONAL INVOLVEMENT IN CARE I have reviewed the history and physical examination and progress note obtained and documented by the fellow and I personally participated in the fernandes components. I have discussed the case and management of the patient's care. The following comments revise or confirm relevant fernandes components of their note. Patient was seen and examined at the bedside. I discussed the case with Dr. Castro also. Her hemoglobin has been stable. Given her underlying triple positive antiphospholipid antibody syndrome and her risk for thrombosis, it seems reasonable to start her on therapeutic fondaparinux 7.5 mg daily. Monitor closely for changes in hemoglobin or further bleeding through ET tube. Note is made that she coughed up blood but I wonder if this could be hematemesis. If there is a drop in her hemoglobin but no significant blood from ET tube then would need to consider that this might be a GI source of bleeding. If significant drop in hemoglobin noted or evidence of bleeding would hold anticoagulation. Plan is for plasma exchange on Monday and Monday of this week. Continue high-dose steroids for now. Not clear why her PT remains elevated and is even a little higher than it was when she has been off of Coumadin. We will send mixing studies. Following with you. Please call or page with questions. SIGNATURE: Dominique Rios DO PAGER: [phone] DATE of SERVICE: October 15, 2017 TIME of SERVICE: 2:08 PM URINALYSIS Collected: 10/15/2017 Status: F Source: [place] 12:23 PM [facility] REPOSITORY TYPE CODE TESTS RESULT OUT OF RANGE REFERENCE UNITS LAB UCOL Yellow Color Yellow LAB [facility] Clear Clarity Abnormal Cloudy Alert LAB UGLUC Negative mg/dL Glucose, Urine Negative LAB UBIL Negative Bilirubin, Urine Negative LAB UKET Negative Ketones, Urine Negative LAB USPG 1.005-1.030 Specific [place], Ur 1.019 LAB UHGB Negative Abnormal Hemoglobin/Blood, 1+ Alert Ur LAB UPH 4.5-8.0 pH 5.0 LAB UPROT Negative mg/dL Protein, Abnormal Urine 30 Alert LAB UUROB Normal Urobilinogen Normal LAB UNITR Negative Nitrites Negative LAB ULKEST Negative Leukest Abnormal 1+ Alert LAB UCOM Comments SEE COMMENT Result Comment: Microscopic Examination Performed LAB UWBC 0-5 /HPF WBC 0-5 LAB URBC 0-3 /HPF Abnormal RBC Alert 3-5 LAB UEPI /HPF Epithelial Cells SEE COMMENT Result Comment: Few Squamous Epithelial Cells LAB UMCOM Urine SEE Radha Comment COMMENT Result Comment: N/A Performed By: #### UA, UCRR, UUNR, UNAR #### [facility] [address] [place], [place] [address] CREATININE,URINE,RAN Collected: Status: F Source: [place] 10/15/2017 12:23 PM [facility] REPOSITORY TYPE CODE TESTS RESULT OUT OF RANGE REFERENCE UNITS LAB UCRR 20-300 mg/dL 71.1 Creatinine,U rine,Ran Performed By: #### UA, UCRR, UUNR, UNAR #### [facility] [address] [place], [place] [address] UREA NITROGEN,UR,RAN Collected: 10/15/2017 Status: F Source: [place] 12:23 PM [facility] REPOSITORY TYPE CODE TESTS RESULT OUT OF RANGE REFERENCE UNITS LAB UUNR 140-1500 mg/dL Urea 630 Nitrogen,Ur, Ran Performed By: #### UA, UCRR, UUNR, UNAR #### [facility] [address], [place] [address] SODIUM,URINE,RANDOM Collected: Status: F Source: [place] 10/15/2017 12:23 PM [facility] REPOSITORY TYPE CODE TESTS RESULT OUT OF RANGE REFERENCE UNITS LAB UNAR 14-216 mmol/L <20 Sodium,Urine ,Random Performed By: #### UA, UCRR, UUNR, UNAR #### [facility] [address] [place], [place] [address] CBC Collected: 10/15/2017 Status: F Source: [place] 12:23 PM [facility] REPOSITORY TYPE CODE TESTS RESULT OUT OF REFERENCE UNITS RANGE LAB WBC 3.70-11.00 k/uL WBC 5.03 LAB RBC 3.90-5.20 m/uL Low RBC 2.90 LAB HGB 11.5-15.5 g/dL Low Hemoglobin 7.9 LAB HCT 36.0-46.0 % Low Hematocrit 25.9 LAB MCV 80.0-100.0 fL MCV 89.3 LAB MCH 26.0-34.0 pG MCH 27.2 LAB MCHC 30.5-36.0 g/dL MCHC 30.5 LAB RDWCV 11.5-15.0 % RDW-CV High 19.3 LAB PLTCT 150-400 k/uL Low Platelet Count 93 Result Comment: Result checked and verified No clot detected. LAB MPV 9.0-12.7 fL MPV <<DO NOT REPORT>> LAB ABSNUC <0.01 k/uL 0.04 High Absolute nRBC Performed By: #### CBC #### [facility] [address] [place], [place] [address] PROGRESS Observed: 10/15/2017 Status: COMPLETED Source: [place] 10:39 AM [facility] REPOSITORY HNO ID: [id number] Author: Hollis Oro Service: Critical Care Author Type: Resident Type: Progress Notes Filed: 10/15/2017 10:52 AM Note Text: [facility] MICU/CRITICAL CARE DAILY PROGRESS NOTE Please page MICU for any concerns SERVICE DATE: 10/15/2017 SERVICE TIME: 10:39 AM Admission Date: 10/13/2017 Patient Summary: 27 y/o female with hx of anti-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 endograft, on intermediate card tender AC with warfarin, plasmapharesis q2 weeks, prednisone 5 mg qD), 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 ? Major Interval Events: 10/13: Admitted to MICU. Intubated. 10/14: weaning to 2mcg Levo, CXR improved, started on ppx fondaparinux 10/15: Off NE drip. Off paralytics. Weaning off sedation but gets agitated. INR 2.0 this morning. Cr increased to 1.82. Plan for Today: -wean sedation and vent as tolerated: added Quetipaine for agitation -Continue prophylactic fondaparinux and monitor CBC -continue steroids -Check UA/Ulytes -Monitor Cr -PO Vit K 5 mg -Stop Vanc/Zosyn Assessment and Plan: Neuro: Sedated Plan: - Wean off sedation as tolerated Peripheral neuropathy: Plan: - Gabapentin Pulmonary: Acute hypoxic respiratory failure due to pulmonary hemorrhage: - Likely alveolar hemorrhage - Hx of DAH - Intubated 10/13 -CXR showing improvement after Rx with steroids Plan: - Monitor CBC/INR - slow AC trial with ppx first - Monitor ABGs - Stopped Vancomycin/Zosyn (receved 2 days) Cardiovascular: HFpEF: LVEF ~ 50% Plan: - Hold diuretics in the setting of bleeding HTN: Plan: - Hold amlodipine due to bleeding GI:No active issues. 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 endograft, on senior living AC with warfarin, plasmapharesis q2 weeks, prednisone 5 mg qD); aslo has Hx of HIT Dx 2013 by BROWN - Last plasmapharesis 10/05/17: was due for repeat on 10/16 Plan: - Consult hematology, appreciate recs - start with trial of prophylactic fondaparinux (given Hx of HIT) with plan for full AC in 1-2 days if patient tolerates - plan to keep current schedule for PLEX (10/16 and 10/18) - Continue high dose methylpred Prophylactic: - PPI FULL CODE Active Hospital Problems Diagnosis - Pulmonary alveolar hemorrhage - APS (antiphospholipid syndrome) (HCC) - Recurrent deep vein thrombosis (DVT) (HCC) - CKD (chronic kidney disease) stage 3, GFR 30-59 ml/min - History of heparin-induced thrombocytopenia - (HFpEF) heart failure with preserved ejection fraction (HCC) - HTN (hypertension) - Peripheral neuropathy - Renal vein thrombosis (HCC) - IVC thrombosis (HCC) INPATIENT MEDICATIONS: Current hospital medications: fentaNYL 50 mcg/mL 50-100 mcg injection (SUBLIMAZE) 50-100 mcg INTRAVENOUS q 15 MIN PRN fentaNYL 20 mcg/mL iv infusion in NaCl 0.9% 100 mL 50-250 mcg/hr INTRAVENOUS CONTINUOUS propofol iv bolus 20 mg (DIPRIVAN) 20 mg INTRAVENOUS q 30 MIN PRN propofol infusion (DIPRIVAN) 5-60 mcg/kg/min INTRAVENOUS CONTINUOUS [START ON 10/16/2017] QUEtiapine 25 mg tab(s) (SEROquel) 25 mg ORAL/FEEDING TUBE DAILY (7 AM) QUEtiapine 50 mg tab(s) (SEROquel) 50 mg ORAL/FEEDING TUBE AT BEDTIME fondaparinux 2.5 mg injection (ARIXTRA) 2.5 mg SUBCUTANEOUS q 24 HR sulfamethoxazole-trimethoprim 800-160 mg 1 tablet (BACTRIM DS,SEPTRA DS) 1 tablet ORAL potassium chloride ER 40 mEq tab(s) (K-DUR, KLOR-CON) 40 mEq ORAL/FEEDING TUBE q 2 H PRN magnesium sulfate in water 4-6 g in sterile water 50 ml 4- 6 g INTRAVENOUS PRN sodium phosphate 45 mmol in NaCl 0.9% 250 mL 45 mmol INTRAVENOUS PRN insulin regular human injection (short acting) (NovoLIN R,HumuLIN R) SUBCUTANEOUS q 6 H insulin regular human iv bolus 2-10 Units 2-10 Units INTRAVENOUS PRN dextrose 50% in water 25-50 mL syringe 12.5-25 g INTRAVENOUS PRN dextrose 40 % 15 g 15 g ORAL PRN glucagon 1 mg injection (GLUCAGEN) 1 mg SUBCUTANEOUS PRN pantoprazole 40 mg injection (PROTONIX) 40 mg INTRAVENOUS DAILY (6 AM) methylPREDNISolone sodium succinate 250 mg in NaCl 0.9% 100 mL (Solu-MEDROL) 250 mg INTRAVENOUS q 12 H white petrolatum-mineral Oil 83-15 % (LUBRIFRESH P.M.) BOTH EYES q 6 H docusate 100 mg CUP (COLACE) 100 mg ORAL/FEEDING TUBE BID sennosides 8.8 mg/5 mL 8.8 mg (SENNA) 8.8 mg ORAL/FEEDING TUBE BID Chlorhexidine Gluconate 0.12 % 15 mL (PERIDEX) 15 mL ORAL QID PHYSICAL EXAM: BP (!) 79/43 Pulse 62 Temp 37.3 ?C (99.1 ?F) Resp 6 Ht 160 cm (5' 3) Wt 111.5 kg (245 lb 13 oz) SpO2 99% BMI 43.54 kg/m2 Oral Mucosa: ETT in place Eyes: PERRLA Neck: Unremarkable; No adenopathy or JVD Cardiovascular: Regular rhythm Respiratory: Reduced breath sounds bilat at bases Abdomen: Soft and Nontender Extremities: Edema- Yes (R>L) Peripheral Pulses- Present all extremities Capillary Refill- less than 3 seconds Skin: Abnormalities- No Breakdown- No Neurologic: Sedated but arousable DATA: Diagnostic tests reviewed for today's visit: Intake/Output Summary (Last 24 hours) at 10/15/17 1052 Last data filed at 10/15/17 1000 Gross per 24 hour Intake 2612.5 ml Output 900 ml Net 1712.5 ml CBC, Coags, BMP, Mg, Phos Recent Labs 10/15/17 0540 10/14/17 2235 10/14/17 1842 10/14/17 1333 10/14/17 0031 10/13/17 2315 10/13/17 1846 10/13/17 1708 10/13/17 1342 10/13/17 1300 WBC 4.66 4.16 4.49 -- < > -- 11.80* 13.01* -- -- -- 11.79* HB 7.6* 7.2* 7.2* -- < > -- 8.0* 8.1* -- -- -- 8.4* HCT 24.5* 23.6* 22.8* -- < > -- 26.6* 26.8* -- -- -- 27.6* PLT 79* 71* 71* -- < > -- 75* 75* -- -- -- 73* INR -- 2.0* -- -- -- -- 1.7* 1.7* -- -- -- 2.0* APTT -- -- -- -- -- -- -- -- -- -- -- 30.3 NA -- 135* -- -- -- -- 137 -- -- -- -- 142 K -- 5.0 -- -- -- -- 5.2* -- -- -- -- 3.6* CHLOR -- 97 -- -- -- -- 99 -- -- -- -- 103 CO2 -- 22 -- -- -- -- 24 -- -- 27 -- 24 BUN -- 45* -- -- -- -- 34* -- -- -- -- 32* CREAT -- 1.82* -- -- -- -- 1.39* -- -- -- -- 1.22* GLUC -- 124* -- -- -- -- 120* -- -- -- -- 48* IC -- -- -- 1.20 -- 1.14 -- -- 1.10 1.14 < > -- CA -- 8.3* -- -- -- -- 8.3* -- -- -- -- 7.8* MG -- 2.2 -- -- -- -- 2.0 -- -- -- -- 1.9 P -- 6.9* -- -- -- -- 5.6* -- -- -- -- 4.2 < > = values in this interval not displayed. Liver Function, Amylase, AND Lipase Recent Labs 10/14/17 2235 10/14/17 1333 10/14/17 0031 10/13/17 2315 10/13/17 1708 10/13/17 1300 TPROT 5.4* -- -- 5.7* -- -- 5.1* ALB 3.4* -- -- 3.6* -- -- 3.4* ALT 13 -- -- 17 -- -- 12 AST 13 -- -- 22 -- -- 17 ALKPHOS 62 -- -- 85 -- -- 57 TBILI 0.5 -- -- 1.2 -- -- 0.6 LACT -- 0.8 0.6 -- 0.7 < > 1.5 < > = values in this interval not displayed. ASSESSMENT AND PLAN: No problems updated. PATIENT CHECKLIST ? Are restraints necessary: No ? Deep vein thrombosis prophylaxis administered? Yes ? Stress ulcer prophylaxis? Yes ? Nasogastric tube? Yes ? Zuniga catheter necessary? Yes ? Is central line essential? Yes ? Plan discussed with assigned RN? Yes ? Family updated within last 24 hours? Yes SIGNATURE: Hollis Oro DO PATIENT NAME: Paloma Cannon DATE: October 15, 2017 TIME: 10:39 AM PAGER/CONTACT #: [phone] CONSULT PROG Observed: 10/15/2017 Status: COMPLETED Source: [place] 9:56 AM [facility] REPOSITORY HNO ID: [id number] Author: Lou Joya (Pharmacist) Service: Pharmacy Author Type: Pharmacist Type: Consult Progress Note Filed: 10/15/2017 9:56 AM Note Text: PHARMACY VANCOMYCIN DOSING NOTE Patient Name: Paloma Cannon Admission Date: 10/13/2017 Date of Consult: 10/15/2017 Time of Consult: 9:56 AM RECOMMENDATIONS/PLAN: The primary service has discontinued vancomycin therapy. Pharmacy vancomycin dosing service will sign off. Thank you for allowing us to participate in this patient's care. Please contact pharmacy if questions. LOU JOYA, PHARMACIST XR CHEST 1V FRONTAL Observed: 10/15/2017 Status: F Source: [facility] 9:13 AM [facility] REPOSITORY * * *Final Report* * * DATE OF EXAM: Oct 15 2017 9:13AM [facility] [id number] - XR CHEST 1V FRONTAL PORT / PROCEDURE REASON: SOB (shortness of breath) * * * * Physician Interpretation * * * * EXAMINATION: CHEST RADIOGRAPH (PORTABLE SINGLE VIEW AP) Exam Date/Time: 10/15/2017 9:13 AM Indication: SOB (shortness of breath) MQ: XCP_4 Comparison: 1 day prior RESULT: See impression. IMPRESSION: Lines, tubes, and devices: Endotracheal tube, NG/orogastric tube, and 2 left-sided central venous catheters are in stable positions. Lungs and pleura: Mild interval worsening of perihilar and lower zone predominant reticular and hazy alveolar opacities in both lungs. The differential diagnosis remains unchanged and includes pulmonary edema, diffuse alveolar hemorrhage and ARDS. No pneumothorax. Cardiomediastinal silhouette: Stable cardiomediastinal silhouette. Other: Cholecystectomy clips again noted. Practice Support Specialist: PSCB Transcribe Date/Time: Oct 15 2017 11:54A Dictated by : STELLA COSME MD This examination was interpreted and the report reviewed and electronically signed by: STELLA COSME MD on Oct 15 2017 11:55AM EST [id number] PROGRESS Observed: 10/15/2017 Status: COMPLETED Source: [place] 8:00 AM [facility] REPOSITORY O ID: [id number] Author: Kit Castro Service: Critical Care Author Type: Physician Type: Progress Notes Filed: 10/15/2017 9:52 AM Note Text: MICU Staff Improved sufficiently yesterday that we resumed anticoagulation with fondaparinux in the context of her profound risk factors. Cannot be given heparin due to history of HIT No blood per ET tube (no secretions.) CXR today with reduced volumes and possible layering effusions. Alveolar infiiltrates appear resolved WBC 4.7, afebrile with maximum temperature 99.7, no longer on pressors Hemoglobin 7.6 (no appreciable decline) Platelets 79 ABGs yesterday at 1 PM with a PO2 of 82 while on 30% FiO2 Noted increased In BUN creatinine today 45/1.82 Doppler of lower and upper extremities showed no clot within the visualized veins Manager Nursing 35 (remains overall stable at this level in the past 3 days) ASSESSMENT Acute hypoxemic respiratory failure with bilateral alveolar infiltrates and differential of pneumonia vs. alveolar hemorrhage. Pulmonary embolism in the context of her diagnosis is less likely in the context of the normal right ventricular systolic function, and therapeutic INR on admission. Nevertheless risk persists and restarted anticoagulation in the form of fondaparinux. Chest x-ray with significant improvement in bilateral infiltrates (within less than 24 hours) Prior history of diffuse alveolar hemorrhage managed with every other week plasmapheresis since 2013, prednisone, cyclophosphamide, with TMP/SMZ prophylaxis. Diffuse alveolar hemorrhage Antiphopholipid syndrome: + lupus anticoagulant, + [id number], and + anti-cardiolipin antibodies DVT/PE 2013 IVC thrombosiis bilateral iliar stent termination clerk warfarin Plasmapheresis HIT (type EF for November 2013 was negative) HFpEF with ejection fraction 47% (same as August 2017) and normal right ventricular systolic function PLAN Plasmapheresis planned tomorrow Urine chemistries Follow-up chest x-ray Follow-up of platelets and transfuse if less than 50,000 Follow up H/H, INR Follow up BUN creatinine Hematology follow-up Check legionella DFA Sputum blood cultures Discontinue Vancomycin/Piptazo Methylprednisolone 250 mgs twice daily Follow up EKG for Qtc Taper FiO2 , Taper PEEP Fondaparinux Tube feeding (increase to goal) Taper propofol Start quetiapine Check triglycerides Kit Castro MD DR. [facility]ED [facility] STAFF PHYSICIAN NOTE OF PERSONAL INVOLVEMENT IN CARE I have reviewed the progress note obtained and documented by the fellow/resident/GENERATION MECHANIC HELPER/PA and I personally participated in the fernandes components. I have discussed the case and management of the patient's care. The previous comments revise or confirm relevant fernandes components of the note. This patient has a high probability of sudden, clinically significant deterioration, which requires the highest level of physician preparedness to intervene urgently. I managed/supervised life or organ supporting interventions that required frequent physician assessment. I devoted my full attention to the direct care of this patient for the amount of time indicated below. Time I spent with family or surrogate(s) is included only if the patient was incapable of providing the necessary information or participating in medical decision making. Time devoted to teaching and to any procedures I billed separately is not included. Critical Care Documentation: The patient has the following organ/system impairment(s): Complex life-threatening medical problem(s) and Respiratory failure (Acute, with Hypoxemia) Time spent providing critical care services: 30+ minutes. SIGNATURE: Kit Castro MD [facility] PAGER:[phone] CBC Collected: 10/15/2017 Status: F Source: [place] 5:40 AM [facility] REPOSITORY TYPE CODE TESTS RESULT OUT OF REFERENCE UNITS RANGE LAB WBC 3.70-11.00 k/uL WBC 4.66 LAB RBC 3.90-5.20 m/uL Low RBC 2.69 LAB HGB 11.5-15.5 g/dL Low Hemoglobin 7.6 LAB HCT 36.0-46.0 % Low Hematocrit 24.5 LAB MCV 80.0-100.0 fL MCV 91.1 LAB MCH 26.0-34.0 pG MCH 28.3 LAB MCHC 30.5-36.0 g/dL MCHC 31.0 LAB RDWCV 11.5-15.0 % RDW-CV High 19.4 LAB PLTCT 150-400 k/uL Low Platelet Count 79 Result Comment: Result checked and verified No clot detected. LAB MPV 9.0-12.7 fL MPV <<DO NOT REPORT>> LAB ABSNUC <0.01 k/uL 0.06 High Absolute nRBC Performed By: #### CBC #### [facility] [address], [place] [address] PROTIME Collected: 10/14/2017 Status: F Source: [place] 10:35 PM [facility] REPOSITORY TYPE CODE TESTS RESULT OUT OF RANGE REFERENCE UNITS LAB PSEC 9.7-13.0 sec High PT Sec 19.4 LAB INR 0.9-1.3 High PT INR 2.0 Result Comment: Vitamin K Antagonist (VKA) Therapeutic Range: INR 2 to 3 (Target INR of 2.5) Note: For patients treated with VKA drugs, such as warfarin, the [place] [employer] 2012 Guideline recommends a therapeutic INR range of 2 to 3 (target INR of 2.5). This recommendation includes high-risk patients with antiphospholipid syndrome with previous arterial or venous thromboembolism, current-generation mechanical or bioprosthetic aortic heart valve replacement. Note: Patients with mechanical aortic valve replacement and additional risk factors for thromboembolic events (atrial fibrillation, previous thromboembolism, LV dysfunction, hypercoagulable conditions) or an older generation mechanical AVR (i.e., ball in-Cage) or any mechanical MVR should have a INR therapeutic range of 2.5 to 3.5 (target INR of 3). Michael PLASENCIA, et al. Chest 2012, 141:7S-47S Diogenes RESENDIZ et al. JAC 2017, 70: 252-289 Performed By: #### PT, CBCDIF, CMP, MG1, PHOS #### [facility] [address], [place] [address] CBC AND DIFFERENTIAL Collected: 10/14/2017 Status: F Source: [place] 10:35 PM [facility] REPOSITORY TYPE CODE TESTS RESULT OUT OF REFERENCE UNITS RANGE LAB WBC 3.70-11.00 k/uL WBC 4.16 LAB RBC 3.90-5.20 m/uL Low RBC 2.61 LAB HGB 11.5-15.5 g/dL Low Hemoglobin 7.2 LAB HCT 36.0-46.0 % Low Hematocrit 23.6 LAB MCV 80.0-100.0 fL MCV 90.4 LAB MCH 26.0-34.0 pG MCH 27.6 LAB MCHC 30.5-36.0 g/dL MCHC 30.5 LAB RDWCV 11.5-15.0 % RDW-CV High 19.5 LAB PLTCT 150-400 k/uL Low Platelet Count 71 Result Comment: Result checked and verified No clot detected. LAB MPV 9.0-12.7 fL MPV <<DO NOT REPORT>> LAB ANEUT % Neut% 95.9 LAB AANEUT 1.45-7.50 k/uL Abs Neut 3.99 LAB ALYMP % Lymph% 1.0 LAB AALYMP 1.00-4.00 k/uL Abs Low Lymph 0.04 LAB AMONO % [place]% 3.1 LAB AAMONO <0.87 k/uL Abs [place] 0.13 LAB AEOS % Eosin% 0.0 LAB AAEOS <0.46 k/uL Abs Eosin <0.03 LAB ABASO % Baso% 0.0 LAB AABASO <0.11 k/uL Abs Baso <0.03 LAB AUNRBC 0 /100 WBC NRBCs High 1.2 LAB ABNRBC <0.01 k/uL High Absolute nRBC 0.05 LAB DTYP DTYPE Auto Diff Performed By: #### PT, CBCDIF, CMP, MG1, PHOS #### [facility] [address], [place] [address] COMP METABOLIC PANEL Collected: 10/14/2017 Status: F Source: [place] 10:35 PM [facility] REPOSITORY TYPE CODE TESTS RESULT OUT OF REFERENCE UNITS RANGE LAB TP 6.3-8.0 g/dL Low Protein, Total 5.4 LAB ALB 3.9-4.9 g/dL Low Albumin 3.4 LAB CA 8.5-10.2 mg/dL Low Calcium, Total 8.3 LAB TBIL 0.2-1.3 mg/dL Bilirubin, Total 0.5 LAB ALKP 32-117 U/L Alkaline Phosphatase 62 LAB AST 13-35 U/L AST 13 LAB GLU 74-99 mg/dL Glucose High 124 Result Comment: The [place] [employer] (ADA) provides guidance for cutoff values for fasting glucose and random glucose. The ADA defines fasting as no caloric intake for at least 8 hours. Fas ting plasma glucose results between 100 to 125 mg/dL indicate increased risk for diabetes (prediabetes). Fasting plasma glucose results greater than or equal to 126 mg/dL meet the criteria for diagnosis of diabetes. In the absence of unequivocal hyperglycemia, results should be confirmed by repeat testing. In a patient with classic symptoms of hyperglycemia or hyperglycemic crisis, random plasma glucose results greater than or equal to 200 mg/dL meet the criteria for diagnosis of diabetes. Reference: Standards of Medical Care in Diabetes 2016, [place] [employer]. Diabetes Care. 2016.39(Suppl 1). LAB BUN 7-21 mg/dL BUN High 45 LAB CRET 0.58-0.96 mg/dL Creatinine High 1.82 LAB NA 136-144 mmol/L Low Sodium 135 LAB K 3.7-5.1 mmol/L Potassium 5.0 LAB CL 97-105 mmol/L Chloride 97 LAB CO2 22-30 mmol/L CO2 22 LAB AGAP 9-18 mmol/L Anion Gap 16 LAB ALT 7-38 U/L ALT 13 LAB GFRAA eGFR- Amer. 40 LAB GFRNAA . eGFR-All Other Races 33 Result Comment: eGFR (Estimated GFR) Units of measure: mL/min/1.73 meters squared eGFR is derived from the reexpressed MDRD Study equation using the following parameters: serum creatinine, age, gender and race. The creatinine assay has been calibrated to be traceable to IDMS. An eGFR <60 mL/min/1.73m2 for >3 months is consistent with chronic kidney disease. Refer to KDOQI guidelines for clinical interpretation. In patients with unstable renal function, e.g. those with acute kidney injury, the eGFR may not accurately reflect actual GFR. Performed By: #### PT, CBCDIF, CMP, MG1, PHOS #### [place] [id number] [place] [address] MAGNESIUM Collected: 10/14/2017 Status: F Source: [place] 10:35 PM [facility] REPOSITORY TYPE CODE TESTS RESULT OUT OF REFERENCE UNITS RANGE LAB MG 1.7-2.3 mg/dL Magnesium 2.2 Performed By: #### PT, CBCDIF, CMP, MG1, PHOS #### [place] [address] PHOSPHORUS Collected: 10/14/2017 Status: F Source: [place] 10:35 PM [facility] REPOSITORY TYPE CODE TESTS RESULT OUT OF REFERENCE UNITS RANGE LAB PHOS 2.7-4.8 mg/dL High Phosphorus 6.9 Performed By: #### PT, CBCDIF, CMP, MG1, PHOS #### [place] [address] CBC Collected: 10/14/2017 Status: F Source: [place] 6:42 PM [facility] REPOSITORY TYPE CODE TESTS RESULT OUT OF REFERENCE UNITS RANGE LAB WBC 3.70-11.00 k/uL WBC 4.49 LAB RBC 3.90-5.20 m/uL Low RBC 2.51 LAB HGB 11.5-15.5 g/dL Low Hemoglobin 7.2 LAB HCT 36.0-46.0 % Low Hematocrit 22.8 LAB MCV 80.0-100.0 fL MCV 90.8 LAB MCH 26.0-34.0 pG MCH 28.7 LAB MCHC 30.5-36.0 g/dL MCHC 31.6 LAB RDWCV 11.5-15.0 % RDW-CV High 19.5 LAB PLTCT 150-400 k/uL Low Platelet Count 71 Result Comment: Result checked and verified No clot detected. LAB MPV 9.0-12.7 fL MPV <<DO NOT REPORT>> LAB ABSNUC <0.01 k/uL 0.05 High Absolute nRBC Performed By: #### CBC #### [place] [id number] GASA + ALL Collected: 10/14/2017 Status: F Source: [place] FOR 1:33 PM [facility] RADIANCE USE ONLY REPOSITORY TYPE CODE TESTS RESULT OUT OF REFERENCE UNITS RANGE LAB PH 7.35-7.45 pH 7.38 LAB PCO2 34-46 mm Hg pCO2 40 LAB PO2 85-95 mm Hg pO2 82 Low LAB BE mmol/L Base Excess NEG 2 LAB HCO3 22-26 mmol/L Bicarbonate 23 LAB CO2CT 22.0-28.0 mmol/L CO2 Content 24 LAB O2HB 95-98 % 93 Low Oxyhemoglobin, Art. LAB COHB 0-5.0 % 1.7 Carboxyhemoglobin ,Art LAB MHGB 0.4-1.5 % 0.8 Methemoglobin LAB TEMP C 37.0 Temperature, Body LAB PHTC 7.35-7.45 pH, Temp 7.38 Corrected LAB PCO2T 34-46 mm Hg pCO2, Temp 40 Correct LAB PO2T mm Hg pO2, Temp 82 Corrected LAB NAB 132-148 mmol/L 133 Sodium,Whole Bld LAB KWB 3.5-5.0 mmol/L Potassium, 4.9 Whole Bld LAB HGBB 11.5-15.5 g/dL 7.6 Low Hemoglobin,Total, ACL LAB HCTB 36.0-46.0 % Hematocrit, 24 Low ACL LAB IC 1.08-1.30 mmol/L Calcium, 1.20 Ion, WB LAB GLB 60-105 mg/dL 101 Glucose,Whole Bld LAB LACT 0.5-2.2 mmol/L Lactate 0.8 LAB ABGCOM Blood Gas O2 Comm, Art Administration Result Comment: 30% LAB ACBDTE [id number] Notify Date, Art LAB ACBTME [id number] Notify Time, Art Performed By: #### ALLBG #### [facility] [address] [place] [id number] CBC Collected: 10/14/2017 Status: F Source: [place] 1:27 PM [facility] REPOSITORY TYPE CODE TESTS RESULT OUT OF REFERENCE UNITS RANGE LAB WBC 3.70-11.00 k/uL WBC 5.09 LAB RBC 3.90-5.20 m/uL Low RBC 2.62 LAB HGB 11.5-15.5 g/dL Low Hemoglobin 7.4 LAB HCT 36.0-46.0 % Low Hematocrit 23.7 LAB MCV 80.0-100.0 fL MCV 90.5 LAB MCH 26.0-34.0 pG MCH 28.2 LAB MCHC 30.5-36.0 g/dL MCHC 31.2 LAB RDWCV 11.5-15.0 % RDW-CV High 19.7 LAB PLTCT 150-400 k/uL Low Platelet Count 70 Result Comment: Result checked and verified No clot detected. LAB MPV 9.0-12.7 fL MPV <<DO NOT REPORT>> LAB ABSNUC <0.01 k/uL 0.02 High Absolute nRBC Performed By: #### CBC, AMINAH #### [facility] [address] [place], [place] [address] TROPONIN T Collected: 10/14/2017 Status: F Source: [place] 1:27 PM [facility] REPOSITORY TYPE CODE TESTS RESULT OUT OF REFERENCE UNITS RANGE LAB TROPT 0.000-0.029 ng/mL Troponin T 0.024 Performed By: #### CBC, AMINAH #### [facility] [address] [place], [place] [address] PROGRESS Observed: 10/14/2017 Status: COMPLETED Source: [place] 12:13 PM [facility] REPOSITORY HNO ID: [id number] Author: Kishore Emerson Service: Critical Care Author Type: Resident Type: Progress Notes Filed: 10/14/2017 12:13 PM Note Text: SERVICE DATE: 10/14/2017 SERVICE TIME: 12:13 PM MICU PROGRESS NOTE Admission Date: 10/13/2017 Hospital Day # 1 SUBJECTIVE Interval HPI: Improved -CXR showing significant improvement in b/l infiltrates -INR 1.7 this AM after 3u FFP -moderate bump in Cr to 1.39 from 1.22, BUN 34 from 32, had 605 cc UOP -C3/C4 both decreased OBJECTIVE Vital Signs (last filed) Range in last 24h Temp: 37.5 ?C (99.5 ?F) (10/14/17 1200) Temp Min: 36.4 ?C (97.5 ?F) Max: 37.6 ?C (99.7 ?F) Pulse: 65 (10/14/17 1200) Pulse Min: 62 Max: 98 Resp: 6 (10/13/17 1400) Resp Min: 6 Max: 20 BP: (!) 79/43 (10/13/17 1600) BP Min: 79/43 Max: 138/75 MAP Non Invasive (Mean Arterial Pressure): 56 (10/13/17 1600) MAP Non Invasive (Mean Arterial Pressure) Min: 56 Max: 102 Arterial BP 1: 125/44 (10/14/17 1200) Arterial BP 1 Min: 103/41 Max: 261/261 SpO2: 95 % (10/14/17 1200) SpO2 Min: 85 % Max: 100 % Pain Score: 0/10 (10/14/17 0800) Fluid Balance: Intake/Output Summary (Last 24 hours) at 10/14/17 0659 Last data filed at 10/14/17 06 Gross per 24 hour Intake 2758.6 ml Output 605 ml Net 2153.6 ml Last Weight: 104 kg (229 lb 4.5 oz) (10/13/17 1200) Admit Weight: 104 kg (229 lb 4.5 oz) (10/13/17 1200) DIET TUBE FEED - CONTIN (NO TRAY) Lines, Drains, and Airways Line Central Line Single Lumen Tunneled Left Chest -- days Dialysis / Apheresis Double Lumen Admission to Hospital Tunneled Left -- days Arterial Line 10/13/17 1600 Arterial Line Right Radial less than 1 day Peripheral 10/13/17 1300 Assessment Short Left Forearm 20 Gauge less than 1 day Peripheral 10/13/17 1300 Assessment Short Left Hand 22 Gauge less than 1 day Peripheral 10/13/17 1713 Assessment Short Left Forearm 20 Gauge less than 1 day Drain GI Feed/Drain 10/13/17 Admission to Hospital Oral Gastric Oral 1 day Indwelling Urinary Catheter 10/13/17 1835 Assessment Zuniga 16 Fr less than 1 day Airway Airway Endotracheal Tube 10/13/17 1 day Vent/Oxygen: Mechanical Ventilator Settings: Tidal Vol (ml): 400 PEEP/CPAP (cm H2O): 14 Vent Mode: VC CMV FIO2 (%): 30 Tidal Vol (ml): 400 PEEP / CPAP (cmH20): 8 Plat Press (cmH20): 24 Freq (bpm): 16 %FIO2 Min: 40 Max: 100 Physical Examination Performed Oral Mucosa: ETT in place Eyes: PERRLA Neck: Unremarkable; No adenopathy or JVD Cardiovascular: Regular rhythm Respiratory: Reduced breath sounds bilat at bases Abdomen: Soft and Nontender Extremities: Edema- Yes (R>L) Peripheral Pulses- Present all extremities Capillary Refill- less than 3 seconds Skin: Abnormalities- No Breakdown- No Neurologic: Sedated but arousable Infusion Medications insulin regular fentaNYL Last Rate: 250 mcg/hr (10/14/17 1200) propofol infusion Last Rate: 50 mcg/kg/min (10/14/17 1200) atracurium iv infusion (TRACRIUM) Last Rate: 10 mcg/kg/min (10/14/17 1200) NORepinephrine Last Rate: Stopped (10/14/17 0930) Diagnostic tests reviewed today: Most recent labs and imaging results. Most recent EKG PATIENT CHECKLIST ? Are restraints necessary: No ? Deep vein thrombosis prophylaxis administered? Yes ? Stress ulcer prophylaxis? Yes ? Nasogastric tube? Yes ? Zuniga catheter necessary? Yes ? Is central line essential? Yes ? Plan discussed with assigned RN? Yes ? Family updated within last 24 hours? 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 ? Major Interval Events: 10/13: Admitted to MICU. Intubated. 10/14: weaning to 2mcg Levo, CXR improved, started on ppx fondaparinux Plan for Today: -wean sedation and vent as tolerated -start trial of prophylactic fondaparinux and monitor CBC -continue steroids -US of extremities -wean pressors as able -monitor UOP Assessment and Plan: Neuro: Sedated Plan: - Wean off sedation as tolerated Peripheral neuropathy: Plan: - Gabapentin Pulmonary: Acute hypoxic respiratory failure due to pulmonary hemorrhage: - Likely alveolar hemorrhage - Hx of DAH - Intubated 10/13 -CXR showing improvement after Rx with steroids Plan: - Monitor CBC/INR - slow AC trial with ppx first - Monitor ABGs - Vancomycin/Zosyn for possible infection Cardiovascular: HFpEF: LVEF ~ 50% Plan: - Hold diuretics in the setting of bleeding HTN: Plan: - Hold amlodipine due to bleeding GI:No active issues. 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 endograft, on intermediate card tender AC with warfarin, plasmapharesis q2 weeks, prednisone 5 mg qD); aslo has Hx of HIT Dx 2013 by BROWN - Last plasmapharesis 10/05/17: was due for repeat on 10/16 Plan: - Consult hematology, appreciate recs - start with trial of prophylactic fondaparinux (given Hx of HIT) with plan for full AC in 1-2 days if patient tolerates - plan to keep current schedule for PLEX (10/16 and 10/18) - Continue high dose methylpred Prophylactic: - PPI FULL CODE Plan of care discussed with:ICU Team and RN SIGNATURE: Kishore Emerson MD PATIENT NAME: Paloma Cannon DATE: October 14, 2017 TIME: 12:13 PM PAGER/CONTACT #: [phone] NUTRITION Observed: 10/14/2017 Status: COMPLETED Source: [place] 10:33 AM [facility] REPOSITORY O ID: [id number] Author: Edel Guillen Service: NST-Nutrition Support Team Author Type: Registered Dietitian Type: Nutrition Filed: 10/14/2017 12:27 PM Note Text: NUTRITION THERAPY INITIAL ASSESSMENT SERVICE DATE: 10/14/2017 SERVICE TIME: 10:34 AM RECOMMENDED MALNUTRITION DIAGNOSIS: UNABLE TO IDENTIFY MALNUTRITION AT THIS TIME Intervention: 1. 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 ? Present Diet Order: NPO Enteral Access: OG tube Nutritional Intake Prior to Admission: Frequent admissions over the past 3 months. Most recent admit 09/29-10/06. Followed by DT - PO intake varied 25-100% meals but patient reported good appetite. Currently NPO, on propofol at 30 ml/hr = ~844 kcal/24 hrs. GI symptoms: none Abdominal Exam: abdomen is soft Is the patient having any pain that is interfering with oral/enteral intake? Unable to assess ANTHROPOMETRICS Height: 160 cm (5' 3) Admission Weight: 104 kg (229 lb 4.5 oz) Current Weight: 104 kg (229 lb 4.5 oz) Body mass index is 40.61 kg/(m2). Weight has increased over the past month likely fluid related (edema present); difficult to assess at this time Last Wt 10/13/17 : 104 kg (229 lb 4.5 oz) 10/05/17 : 101.4 kg (223 lb 8 oz) 09/12/17 : 96.6 kg (213 lb) 08/21/17 : 92.7 kg (204 lb 6.4 oz) - Office visit 07/11/17 : 106.6 kg (235 lb) 04/29/17 : 114.5 kg (252 lb 6.8 oz) 02/10/17 : 105.3 kg (232 lb 2.3 oz) 01/04/17 : 117 kg (257 lb 15 oz) 10/18/2016 114.306 kg 44.64 Orange body weight 52.3 kg Dosing Weight: 101 kg Estimated kilocalorie needs: 2762-2533 kilocalories determined by 11-14 kcal/kg Estimated protein needs: 78-105 grams determined by 1.5-2.0 g/kg Orange weight Estimated fluid needs: per MD NUTRITION FOCUSED PHYSICAL EXAM: patient paralyzed, sedated - Difficult to assess Subcutaneous Fat Loss Orbital Unable to determine at this time Triceps No fat loss Mid-axillary at the iliac crest Unable to determine at this time Muscle Loss Locations: Temporalis No muscle loss Pectoralis Unable to determine at this time Deltoids No muscle loss Interosseous Unable to determine at this time Latissimus dorsi, trapezius Unable to determine at this time Quadriceps Unable to determine at this time Gastrocnemius Unable to determine at this time Potential micronutrient deficiency revealed in: Skin - pallor Edema: Yes Generalized Ascites: No Assessment of Functional Status: Unable to determine at this time Temperature Max in 24 hours: Temp (24hrs), Av.1 ?C (98.8 ?F), Min:36.4 ?C (97.5 ?F), Max:37.6 ?C (99.7 ?F) BP (!) 79/43 Pulse 65 Temp 37.4 ?C (99.3 ?F) Resp 6 Ht 160 cm (5' 3) Wt 104 kg (229 lb 4.5 oz) SpO2 95% BMI 40.61 kg/m2 Recent Labs 10/14/17 0419 10/13/17 2315 GLUC -- 120* BUN -- 34* CREAT -- 1.39* NA -- 137 K -- 5.2* CHLOR -- 99 CO2 -- 24 ALB -- 3.6* HB 7.8* 8.0* HCT 26.0* 26.6* WBC 8.75 11.80* P -- 5.6* MG -- 2.0 Potential Signs of Inflammation: leukocytosis, hypoalbuminemia and chronic condition ALLERGIES Allergen Reactions - Rhubarb Rash, Hives *addresed last admits, noted in NSS - Heparin Other: See Comments Per patient history of HIT - was on angiomax however then took l fondaparinux for bridging to coumadin. - Iv Contrast [Iodine] Other: See Comments shuts kidneys down per patient - Rituximab Other: See Comments Elevated cardiac enzymes Current Facility-Administered Medications: sulfamethoxazole-trimethoprim 800-160 mg 1 tablet (BACTRIM DS,SEPTRA DS) 1 tablet ORAL potassium chloride ER 40 mEq tab(s) (K-DUR, KLOR-CON) 40 mEq ORAL/FEEDING TUBE q 2 H PRN magnesium sulfate in water 4-6 g in sterile water 50 ml 4- 6 g INTRAVENOUS PRN sodium phosphate 45 mmol in NaCl 0.9% 250 mL 45 mmol INTRAVENOUS PRN insulin regular human injection (short acting) (NovoLIN R,HumuLIN R) SUBCUTANEOUS q 6 H insulin regular 250 units in NaCl 0.9% 250 mL iv infusion - ICU NOMOGRAM 0.5-30 Units/hr INTRAVENOUS CONTINUOUS insulin regular human iv bolus 2-10 Units 2-10 Units INTRAVENOUS PRN dextrose 50% in water 25-50 mL syringe 12.5-25 g INTRAVENOUS PRN dextrose 40 % 15 g 15 g ORAL PRN glucagon 1 mg injection (GLUCAGEN) 1 mg SUBCUTANEOUS PRN pantoprazole 40 mg injection (PROTONIX) 40 mg INTRAVENOUS DAILY (6 AM) fentaNYL 50 mcg/mL 50-100 mcg injection (SUBLIMAZE) 50-100 mcg INTRAVENOUS q 15 MIN PRN propofol iv bolus 20 mg (DIPRIVAN) 20 mg INTRAVENOUS q 30 MIN PRN piperacillin-tazobactam 3.375 g in dextrose (iso-osmotic) 50 mL (ZOSYN) 3.375 g INTRAVENOUS q 6 H vancomycin dosing and monitoring per pharmacy OTHER As Directed vancomycin 1.5 g in D5W 250 mL (VANCOCIN) 0.015 g/kg/dose INTRAVENOUS q 18 HR methylPREDNISolone sodium succinate 250 mg in NaCl 0.9% 100 mL (Solu-MEDROL) 250 mg INTRAVENOUS q 12 H white petrolatum-mineral Oil 83-15 % (LUBRIFRESH P.M.) BOTH EYES q 6 H docusate 100 mg CUP (COLACE) 100 mg ORAL/FEEDING TUBE BID sennosides 8.8 mg/5 mL 8.8 mg (SENNA) 8.8 mg ORAL/FEEDING TUBE BID Chlorhexidine Gluconate 0.12 % 15 mL (PERIDEX) 15 mL ORAL QID fentaNYL 20 mcg/mL iv infusion in NaCl 0.9% 100 mL 250 mcg/hr INTRAVENOUS CONTINUOUS propofol infusion (DIPRIVAN) 50 mcg/kg/min INTRAVENOUS CONTINUOUS atracurium 500 mg in D5W 100 mL (TRACRIUM) 5-15 mcg/kg/min INTRAVENOUS CONTINUOUS NORepinephrine 16 mg in D5W 250 mL (LEVOPHED) 0.6-20 mcg/min INTRAVENOUS CONTINUOUS MNT Billing Type: Initial Assess/15 min 3 units SIGNATURE: Edel Guillen RD, LD, CNSC PATIENT NAME: Paloma Cannon DATE: October 14, 2017 TIME: 10:34 AM PAGER: [phone] XR CHEST 1V FRONTAL Observed: 10/14/2017 Status: F Source: [facility] 9:16 AM [facility] REPOSITORY * * *Final Report* * * DATE OF EXAM: Oct 14 2017 9:16AM [facility] [id number] - XR CHEST 1V FRONTAL PORT / PROCEDURE REASON: ARDS (adult respiratory distress syndrome) (HCC) * * * * Physician Interpretation * * * * EXAMINATION: CHEST RADIOGRAPH (PORTABLE SINGLE VIEW AP) Exam Date/Time: 10/14/2017 9:16 AM Indication: ARDS (adult respiratory distress syndrome) (HCC) MQ: XCP_4 Comparison: 1 day prior RESULT: See impression. IMPRESSION: Lines, tubes, and devices: Endotracheal tube, NG/OG tube and 2 left-sided central venous catheters are in stable positions. Lungs and pleura: Improved perihilar reticular and alveolar opacities throughout both lungs. Findings could represent improving pulmonary edema, alveolar hemorrhage or changes related to ARDS/diffuse alveolar damage. Improved bilateral layering small pleural effusions and associated basilar atelectatic changes. No pneumothorax. Cardiomediastinal silhouette: Stable cardiomediastinal silhouette. Other: Practice Support Specialist: PSCB Transcribe Date/Time: Oct 14 2017 10:28A Dictated by : STELLA COSME MD This examination was interpreted and the report reviewed and electronically signed by: STELLA COSME MD on Oct 14 2017 10:29AM EST [id number] CONSULT PROG Observed: 10/14/2017 Status: COMPLETED Source: [place] 8:57 AM [facility] REPOSITORY HNO ID: [id number] Author: Dominique Rios Service: Hematology/Oncology Author Type: Physician Type: Consult Progress Note Filed: 10/14/2017 5:02 PM Note Text: ? [facility] DEPARTMENT OF HEMATOLOGIC ONCOLOGY AND BLOOD DISORDERS ? Hematology Consult Follow Up ? ? Patient name: Paloma Cannon : 1990 Date of Service: 10/14/2017 Supervising attending physician: Dr. Castro ? DIAGNOSIS: Antiphospholipid Antibody Syndrome ? ? INTERVAL HISTORY: Intubated and paralyzed. CXR looks much better today. Current hospital medications: sulfamethoxazole-trimethoprim 800-160 mg 1 tablet (BACTRIM DS,SEPTRA DS) 1 tablet ORAL potassium chloride ER 40 mEq tab(s) (K-DUR, KLOR-CON) 40 mEq ORAL/FEEDING TUBE q 2 H PRN magnesium sulfate in water 4-6 g in sterile water 50 ml 4- 6 g INTRAVENOUS PRN sodium phosphate 45 mmol in NaCl 0.9% 250 mL 45 mmol INTRAVENOUS PRN insulin regular human injection (short acting) (NovoLIN R,HumuLIN R) SUBCUTANEOUS q 6 H insulin regular 250 units in NaCl 0.9% 250 mL iv infusion - ICU NOMOGRAM 0.5-30 Units/hr INTRAVENOUS CONTINUOUS insulin regular human iv bolus 2-10 Units 2-10 Units INTRAVENOUS PRN dextrose 50% in water 25-50 mL syringe 12.5-25 g INTRAVENOUS PRN dextrose 40 % 15 g 15 g ORAL PRN glucagon 1 mg injection (GLUCAGEN) 1 mg SUBCUTANEOUS PRN pantoprazole 40 mg injection (PROTONIX) 40 mg INTRAVENOUS DAILY (6 AM) fentaNYL 50 mcg/mL 50-100 mcg injection (SUBLIMAZE) 50-100 mcg INTRAVENOUS q 15 MIN PRN propofol iv bolus 20 mg (DIPRIVAN) 20 mg INTRAVENOUS q 30 MIN PRN piperacillin-tazobactam 3.375 g in dextrose (iso-osmotic) 50 mL (ZOSYN) 3.375 g INTRAVENOUS q 6 H vancomycin dosing and monitoring per pharmacy OTHER As Directed vancomycin 1.5 g in D5W 250 mL (VANCOCIN) 0.015 g/kg/dose INTRAVENOUS q 18 HR methylPREDNISolone sodium succinate 250 mg in NaCl 0.9% 100 mL (Solu-MEDROL) 250 mg INTRAVENOUS q 12 H white petrolatum-mineral Oil 83-15 % (LUBRIFRESH P.M.) BOTH EYES q 6 H docusate 100 mg CUP (COLACE) 100 mg ORAL/FEEDING TUBE BID sennosides 8.8 mg/5 mL 8.8 mg (SENNA) 8.8 mg ORAL/FEEDING TUBE BID Chlorhexidine Gluconate 0.12 % 15 mL (PERIDEX) 15 mL ORAL QID fentaNYL 20 mcg/mL iv infusion in NaCl 0.9% 100 mL 250 mcg/hr INTRAVENOUS CONTINUOUS propofol infusion (DIPRIVAN) 50 mcg/kg/min INTRAVENOUS CONTINUOUS atracurium 500 mg in D5W 100 mL (TRACRIUM) 5-15 mcg/kg/min INTRAVENOUS CONTINUOUS NORepinephrine 16 mg in D5W 250 mL (LEVOPHED) 0.6-20 mcg/min INTRAVENOUS CONTINUOUS ? PHYSICAL EXAMINATION: General: Intubated and sedated HEENT: Grossly PERRLA, EOMI, anicteric Heart/CV: Grossly RR Lungs/Resp/Chest: Normal chest wall movement. Abd: Grossly ND, no HSM, no other masses Extremities/Skin: B/L swelling of the feet ? DATA: Labs: Component Latest Ref Rng AND Units 10/13/2017 10/13/2017 10/13/2017 10/14/2017 4:30 PM 6:46 PM 11:15 PM WBC 3.70 - 11.00 k/uL 13.01 (H) 11.80 (H) 8.75 RBC 3.90 - 5.20 m/uL 2.86 (L) 2.90 (L) 2.86 (L) Hemoglobin 11.5 - 15.5 g/dL 8.1 (L) 8.0 (L) 7.8 (L) Hematocrit 36.0 - 46.0 % 26.8 (L) 26.6 (L) 26.0 (L) MCV 80.0 - 100.0 fL 93.7 91.7 90.9 MCH 26.0 - 34.0 pG 28.3 27.6 27.3 MCHC 30.5 - 36.0 g/dL 30.2 (L) 30.1 (L) 30.0 (L) RDW-CV 11.5 - 15.0 % 20.6 (H) 20.7 (H) 20.2 (H) Platelet Count 150 - 400 k/uL 75 (L) 75 (L) 77 (L) MPV 9.0 - 12.7 fL <<DO NOT REPORT>> <<DO NOT REPORT>> <<DO NOT REPORT>> Neut% % 97.7 Abs Neut (ANC) 1.45 - 7.50 k/uL 11.53 (H) Lymph% % 0.9 Abs Lymph 1.00 - 4.00 k/uL 0.11 (L) [place]% % 0.9 Abs [place] <0.87 k/uL 0.11 Eosin% % 0.2 Abs Eosin <0.46 k/uL <0.03 Baso% % 0.3 Abs Baso <0.11 k/uL 0.03 Nucleated Reds 0 /100 WBC 0.2 (H) Absolute nRBC <0.01 k/uL 0.03 (H) 0.02 (H) 0.02 (H) Diff Type Auto Diff Protein, Total 6.3 - 8.0 g/dL 5.7 (L) Albumin 3.9 - 4.9 g/dL 3.6 (L) Calcium 8.5 - 10.2 mg/dL 8.3 (L) Bilirubin, Total 0.2 - 1.3 mg/dL 1.2 Alkaline Phosphatase 32 - 117 U/L 85 AST 13 - 35 U/L 22 Glucose 74 - 99 mg/dL 120 (H) BUN 7 - 21 mg/dL 34 (H) Creatinine 0.58 - 0.96 mg/dL 1.39 (H) Sodium 136 - 144 mmol/L 137 Potassium 3.7 - 5.1 mmol/L 5.2 (H) Chloride 97 - 105 mmol/L 99 CO2 22 - 30 mmol/L 24 Anion Gap 9 - 18 mmol/L 14 ALT 7 - 38 U/L 17 eGFR- 55 eGFR-All Other Races . 45 PT Sec 9.7 - 13.0 sec 16.8 (H) 16.7 (H) PT INR 0.9 - 1.3 1.7 (H) 1.7 (H) C3 86 - 166 mg/dL 67 (L) C4 13 - 46 mg/dL 9 (L) ASSESSMENT/PLAN: 27 y/o female?with PMHx of Triple-positive Anti-phospholipid Syndrome diagnosed in 2013?(catastrophic APS complicated by PE/DVT), needing plasmapheresis q2 weeks,?Diffuse Alveolar Hemorrhage (On prednisone and Cytoxan), who was admitted to MICU for further management of alveolar hemorrhage s/p intubation. ? Most recent APS antibody titers (09/18) were: ACL IgG 61 and Anti-B2GP1 IgG >150. ?? -Patient is scheduled for next plasma exchange on 10/16 (Monday) and 10/18 (Monday). No need for urgent plasma exchange. - Given significant improvement in CXR. Please start anticoagulation initially with prophylactic dose of Fondaparinaux 2.5mg once daily. Avoid Heparin given history of RONNIE. -Agree with Solumedrol 250mg Q12H for diffuse alveolar hemorrhage. - Please obtain B/L lower extremities doppler to rule out any DVT -Thrombocytopenia multifactorial, 2/2 increased consumption in the setting of APS and drug effect from Cytoxan. Monitor CBC daily, transfuse if platelets<50,000 given concern diffuse alveolar hemorrhage. ? ? Case seen and discussed with Dr. Rios. Hematology will follow. ? ? Juan Christopher MD Fellow, Hematology and Medical Oncology Pager: [phone] ? [facility] STAFF PHYSICIAN NOTE OF PERSONAL INVOLVEMENT IN CARE I have reviewed the history and physical examination and progress note obtained and documented by the fellow and I personally participated in the fernandes components. I have discussed the case and management of the patient's care. The following comments revise or confirm relevant fernandes components of their note. The patient is doing marginally better today. No blood through ET tube. Ventilation has been less problematic. The patient has been off anticoagulation and her INR at this time is subtherapeutic. I discussed with the primary service that in the setting of her history of recent significant pulmonary hemorrhage I think we should reintroduce anticoagulation very carefully. I would recommend restarting her on prophylactic Fondaparinux 2.5 mg once daily. I would not use full dose fondaparinux at this point. We cannot use unfractionated heparin given her history of a positive BROWN/history of HIT. Continue high- dose steroids at this time. Plan is for Apheresis next week Monday and Monday and perhaps Monday. Following with you and please call/page with questions. SIGNATURE: Dominique Rios DO PAGER: [phone] DATE of SERVICE: October 14, 2017 TIME of SERVICE: 5:02 PM PROGRESS Observed: 10/14/2017 Status: COMPLETED Source: [place] 7:58 AM [facility] REPOSITORY O ID: [id number] Author: Kit Castro Service: Critical Care Author Type: Physician Type: Progress Notes Filed: 10/14/2017 9:53 AM Note Text: MICU Staff Improvement in respiratory status with FiO2 decreased to 40% and PO2 148, PEEP is 10 (decreased from 14 CXR today personally reviewed with significant improvement in bilateral alveolar infiltrates NE at 2 mcg/mn (from 6 yesterday) Appreciate input from hematology. We'll treat at this point with methylprednisolone 250 twice daily without plasmapheresis WBC 8.8 Hemoglobin 7.8 (relatively stable) PT/INR 1.7 ABG 7.34/43/148, with FiO2 decreased to 40% Note slight elevation in BUN and creatinine to 34/1.39. Urine without casts Cardiac echo yesterday with ejection fraction 47% (same as August 2017) and normal right ventricular systolic function C3 C4 mildly decreased Manager Nursing 36 today (vs. 34 yesterday) ASSESSMENT Acute hypoxemic respiratory failure with bilateral alveolar infiltrates and differential of pneumonia vs. alveolar hemorrhage. Pulmonary embolism in the context of her diagnosis is less likely in the context of the normal right ventricular systolic function, and therapeutic INR on admission Prior history of diffuse alveolar hemorrhage managed with every other week plasmapheresis since 2013, prednisone, cyclophosphamide, with TMP/SMZ prophylaxis. Diffuse alveolar hemorrhage Antiphopholipid syndrome: + lupus anticoagulant, + [id number], and + anti-cardiolipin antibodies DVT/PE 2013 IVC thrombosiis bilateral iliar stent termination clerk warfarin Plasmapheresis HIT (type EF for November 2013 was negative) HFpEF PLAN Follow-up chest x-ray Lower extremity Doppler Follow-up of platelets and transfuse if less than 50,000 Follow up H/H ,INR Hold anticoagulation Follow up U/A for casts and BUN./Cr Hematology follow-up Strep Ag Sputum blood cultures Vancomycin/Piptazo (keep another 24 hours) Methylprednisolone 250 mgs twice daily Discontinue paralytics Follow up EKG for Qtc (524 yesterday) Taper Fio2 , Taper PEEP Discuss with hematology resumption of anticoagulation: will ask vascular medicine given HIT Tube feeding today Kit Castro MD [facility] STAFF PHYSICIAN NOTE OF PERSONAL INVOLVEMENT IN CARE I have reviewed the progress note obtained and documented by the fellow/resident/GENERATION MECHANIC HELPER/PA and I personally participated in the fernandes components. I have discussed the case and management of the patient's care. The previous comments revise or confirm relevant fernandes components of the note. This patient has a high probability of sudden, clinically significant deterioration, which requires the highest level of physician preparedness to intervene urgently. I managed/supervised life or organ supporting interventions that required frequent physician assessment. I devoted my full attention to the direct care of this patient for the amount of time indicated below. Time I spent with family or surrogate(s) is included only if the patient was incapable of providing the necessary information or participating in medical decision making. Time devoted to teaching and to any procedures I billed separately is not included. Critical Care Documentation: The patient has the following organ/system impairment(s): Complex life-threatening medical problem(s) and Respiratory failure (Acute, with Hypoxemia) Time spent providing critical care services: 30+ minutes. SIGNATURE: Kit Castro MD [facility] PAGER:[phone] CONSULTATION Observed: 10/14/2017 Status: F Source: [place] 5:34 AM [facility] REPOSITORY [facility] Medical Records Department [address] [facility] [place] [address] Consultation 10/13/17 1113 MR#: [id number] Acct: [id number] Name: PALOMA CANNON Rep #: [id number] : 1990 27 From: Mitch Buchanan MD PCP: Peyton Rogers MD Status: DEP ER Y Location: ED Problem List (1) Diffuse pulmonary alveolar hemorrhage Status: Acute (2) Acute on chronic anemia Status: Acute (3) Hypertension Status: Chronic (4) Thrombocytopenia Status: Chronic (5) Chronic anemia Status: Chronic (6) History of alveolar hemorrhage Status: Chronic (7) History of deep vein thrombosis (DVT) of lower extremity Status: Chronic (8) Antiphospholipid antibody syndrome Status: Chronic (9) Morbid obesity Status: Chronic (10) Chronic renal failure, stage 3 (moderate) Status: Chronic (11) Steroid dependence Status: Chronic Reason for Consult Date of Consultation: 10/13/17 Reason for Consultation: ARDS History of Present Illness: The patient is a 27 year old F with past medical history listed below, who presented to [facility] on 10/13/2017 secondary to acute shortness of breath, nausea and vomiting. Patient was reportedly of her usual health when she was at the eye doctor this morning port. Over the course of 30 minutes, patient became severely short of breath and was transported to the emergency room. On evaluation, patient was noted to be hypertensive with systolic blood pressures in the 190s. Patient was also tachycardic at 125 bpm and was saturating 80% on a nonrebreather mask. Patient did appear pale and was emergently intubated by the ER staff. Shortly after intubation, patient remained hypoxic despite increased PEEP and 100% FiO2, so I was asked to come to the ER to help with evaluation while transportation is arranged. Patient is unable to provide any history at this time. Patient's reports that she suffers from severe antiphospholipid antibody syndrome and was recently discharged from the [facility] following plasmapheresis. Patient reportedly has to receive her care at [facility] or [facility]. ER has called for transportation, but no bed is available at this time. Patient's reports that she has been of her usual health. Patient does suffer from seasonal allergies at this time of year, but is not reported any nausea, vomiting, fever, chills, lower extremity edema, hemoptysis or cyanosis in the last 3-4 days. Patient does have a history of alveolar hemorrhage and is on anticoagulation. 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 (Verified 04/25/17 00:47) Hives Gadolinium-MRI Contrast Medium [CONTRAST] Adverse Reaction (Verified 04/25/17 00:47) RENAL FAILURE Iodinated Contrast- Oral and IV Dye [CONTRASTS] Adverse Reaction (Verified 04/25/17 00:47) RENAL FAILURE Home Medications: Ambulatory Orders Medication Instructions Recorded Cetirizine HCl [Zyrtec] 10 mg PO BID 02/12/16 Gabapentin [Neurontin] 400 mg PO TIDCM 02/12/16 Potassium Chloride [K-Dur] 20 meq PO DAILY PRN PRN 02/12/16 Surgical History: - - IVC filter placement Psychiatric History: No pertinent psych hx SEVERITY OF ILLNESS COORDINATOR History: No pertinent SEVERITY OF ILLNESS COORDINATOR history Smoking Status: Never smoker - *Family History Maternal History Items: Cancer Paternal History Items: No pertinent history Review of Systems Unable to obtain accurate/complete ROS d/t: Intubated and unresponsive Objective: Recent chest x-ray was personally reviewed and shows bilateral fluffy infiltrates without effusion. No previous x-rays are available for review. Patient did have an echocardiogram completed in March 2017 showing an EF of 50% with elevated pulmonary artery pressures of 54 mmHg. At that time, there was no significant valvular abnormalities. On my arrival in the emergency room, patient was increased on PEEP to 14. Patient's tidal volume was decreased to 400 (6 cc/kg ideal body weight) and allowed to have respiratory rates in the 20s. No significant air trapping or auto PEEP was appreciated on flow volume loops. - Physical Exam General: - - Intubated and unresponsive. Obese. Fair vent synchrony noted. Treatment appearance HEENT: Atraumatic, PERRLA, EOMI, Normocephalic Oral: Moist Mucosa, No Gingival or Mucosal Lesions/ Ulcerations, - - Pale pink endotracheal secretions noted Neck: Supple, No Nodes, Trachea Midline, JVD, Right Lungs: No rhonchi, No wheeze, Diminished, Rales - Bilateral, - - Symmetric expansion. No dullness to percussion. Chest port noted Cardiovascular: Normal S1, Normal S2, No murmurs, No rub noted, No Gallop, Tachycardic Abdomen: Bowel Sounds Present, Soft, Non Tender, Non-Distended, Obese Extremities: No clubbing, No cyanosis, Edema - Bilateral lower extremities Skin: - - Venous stasis changes the lower extremities. Lines are clean, dry and intact. Musculoskeletal: No Tenderness to Palpation of Joints or Extremities Lymphatic: No Cervical, Supraclavicular, or Inguinal Adenopathy Neurological: - - Gag and cough reflexes. Spontaneous movement to noxious stimulus. Psych/Mental Status: Flat Affect Vital Signs Temp Pulse Resp BP Pulse Ox 37.6 C H 113 H 22 H 140/77 H 97 10/13/17 11:05 10/13/17 11:05 10/13/17 11:05 10/13/17 11:05 10/13/17 11:05 Oxygen Flow Rate (L/min) 15 Oxygen Delivery Method Mechanical Ventilator Weight: 104.6 kg Body Mass Index (BMI) 38.3 Finger Stick Blood Glucose 127 Laboratory Tests Past 24 Hrs WBC 17.0 H WBC RBC Hgb Hct MCV MCH WBC RBC Hgb Hct MCV MCH Assessment/Plan RECOMMENDATIONS: 1. Await transport to tertiary center for plasmapheresis 2. Agree with initiation of empiric antibiotics 3. Would not actively reverse anticoagulation 4. Continue with permissive hypercapnia ventilation 5. Initiate Argatroban if necessary for anticoagulation, not heparin IMPRESSIONS: 1. ARDS secondary to diffuse pulmonary hemorrhage secondary to antiphospholipid crisis Patient with previous presentations in the past that have been treated with plasmapheresis. There is no plasmapheresis available [facility]. ER is currently arranging for transportation to a tertiary type center. Patient is on low tidal volume ventilation with acceptable pH. Patient does have a significant lactic acidosis, likely secondary to oxygen tension. Patient is responding well to ventilation at this time. If sedated, vent rate will likely need to be increased. Attempting to avoid APRV as this will be very difficult to transport on. 2. Acute kidney injury Creatinine of 0.94 noted in May 2017. Unclear if this is secondary to ATN versus long-term issues. Patient was recently admitted at [facility] with a similar type presentation. Would avoid contrast if possible. 3. Anemia/thrombocytopenia/coagulopathy/history of heparin- induced thrombocytopenia Patient does have a history of heparin-induced thrombocytopenia, so all heparin products should be avoided. Patient's INR is currently therapeutic, but no obvious signs of acute blood loss anemia at this time. Continue to monitor blood counts daily with plans for transfusion if hemoglobin is less than 7 g/dL. 4. Personal history of antiphospholipid antibody syndrome Will need to watch INR closely. There are currently therapeutic. Patient should have plasmapheresis as soon as possible. 5. Personal history of DVT status post IVC filter/hypertension/obesity/allergic rhinitis/GERD Complicates care, management, recovery and prognosis. Continue home medications as indicated. TIME: 60 minutes of critical care time spent addressing patient's ARDS, acute kidney injury, review of all data and collaboration with care team (10:30 AM to 11:30 AM) 10/14/17 0534 <Electronically signed by Mitch Buchanan MD> Date Mitch Buchanan MD Cosigner Signature (if applicable): Date CC: Peyton Rogers MD Signed CBC Collected: 10/14/2017 Status: F Source: [place] 4:19 AM [facility] REPOSITORY TYPE CODE TESTS RESULT OUT OF REFERENCE UNITS RANGE LAB WBC 3.70-11.00 k/uL WBC 8.75 LAB RBC 3.90-5.20 m/uL Low RBC 2.86 LAB HGB 11.5-15.5 g/dL Low Hemoglobin 7.8 LAB HCT 36.0-46.0 % Low Hematocrit 26.0 LAB MCV 80.0-100.0 fL MCV 90.9 LAB MCH 26.0-34.0 pG MCH 27.3 LAB MCHC 30.5-36.0 g/dL Low MCHC 30.0 LAB RDWCV 11.5-15.0 % RDW-CV High 20.2 LAB PLTCT 150-400 k/uL Low Platelet Count 77 Result Comment: Result checked and verified No clot detected. LAB MPV 9.0-12.7 fL MPV <<DO NOT REPORT>> LAB ABSNUC <0.01 k/uL 0.02 High Absolute nRBC Performed By: #### CBC, AMINAH #### [facility] [address] [place], [place] [address] TROPONIN T Collected: 10/14/2017 Status: F Source: [place] 4:19 AM [facility] REPOSITORY TYPE CODE TESTS RESULT OUT OF REFERENCE UNITS RANGE LAB TROPT 0.000-0.029 ng/mL Troponin T 0.028 Performed By: #### CBC, AMINAH #### [facility] [address] [place], [place] [address] GASA + ALL Collected: 10/14/2017 Status: F Source: [place] FOR 12:31 AM [facility] RADIANCE USE ONLY REPOSITORY TYPE CODE TESTS RESULT OUT OF REFERENCE UNITS RANGE LAB PH 7.35-7.45 pH 7.34 Low LAB PCO2 34-46 mm Hg pCO2 43 LAB PO2 85-95 mm Hg pO2 148 High LAB BE mmol/L Base Excess NEG 2 LAB HCO3 22-26 mmol/L Bicarbonate 23 LAB CO2CT 22.0-28.0 mmol/L CO2 Content 24 LAB O2HB 95-98 % 97 Oxyhemoglobin, Art. LAB COHB 0-5.0 % 1.9 Carboxyhemoglobin ,Art LAB MHGB 0.4-1.5 % 0.6 Methemoglobin LAB TEMP C 37.0 Temperature, Body LAB PHTC 7.35-7.45 pH, Temp 7.34 Low Corrected LAB PCO2T 34-46 mm Hg pCO2, Temp 43 Correct LAB PO2T mm Hg pO2, Temp 148 Corrected LAB NAB 132-148 mmol/L 134 Sodium,Whole Bld LAB KWB 3.5-5.0 mmol/L Potassium, 5.0 Whole Bld LAB HGBB 11.5-15.5 g/dL 8.2 Low Hemoglobin,Total, ACL LAB HCTB 36.0-46.0 % Hematocrit, 26 Low ACL LAB IC 1.08-1.30 mmol/L Calcium, 1.14 Ion, WB LAB GLB 60-105 mg/dL 120 High Glucose,Whole Bld LAB LACT 0.5-2.2 mmol/L Lactate 0.6 LAB ABGCOM Blood Gas O2 Comm, Art Administration Result Comment: 40% Performed By: #### ALLBG #### [facility] [address] [place], [place] [address] PROTIME Collected: 10/13/2017 Status: F Source: [place] 11:15 PM [facility] REPOSITORY TYPE CODE TESTS RESULT OUT OF RANGE REFERENCE UNITS LAB PSEC 9.7-13.0 sec High PT Sec 16.7 LAB INR 0.9-1.3 High PT INR 1.7 Result Comment: Vitamin K Antagonist (VKA) Therapeutic Range: INR 2 to 3 (Target INR of 2.5) Note: For patients treated with VKA drugs, such as warfarin, the [place] [employer] 2012 Guideline recommends a therapeutic INR range of 2 to 3 (target INR of 2.5). This recommendation includes high-risk patients with antiphospholipid syndrome with previous arterial or venous thromboembolism, current-generation mechanical or bioprosthetic aortic heart valve replacement. Note: Patients with mechanical aortic valve replacement and additional risk factors for thromboembolic events (atrial fibrillation, previous thromboembolism, LV dysfunction, hypercoagulable conditions) or an older generation mechanical AVR (i.e., ball in-Cage) or any mechanical MVR should have a INR therapeutic range of 2.5 to 3.5 (target INR of 3). Michael GH, et al. Chest 2012, 141:7S-47S Diogenes RA et al. [facility] 2017, 70: 252-289 Performed By: #### PT, CMP, MG1, NTBNP, PHOS, CBCDIF #### [facility] [address] [place], [place] [address] COMP METABOLIC PANEL Collected: 10/13/2017 Status: F Source: [place] 11:15 PM [facility] REPOSITORY TYPE CODE TESTS RESULT OUT OF REFERENCE UNITS RANGE LAB TP 6.3-8.0 g/dL Low Protein, Total 5.7 LAB ALB 3.9-4.9 g/dL Low Albumin 3.6 LAB CA 8.5-10.2 mg/dL Low Calcium, Total 8.3 LAB TBIL 0.2-1.3 mg/dL Bilirubin, Total 1.2 LAB ALKP 32-117 U/L Alkaline Phosphatase 85 LAB AST 13-35 U/L AST 22 LAB GLU 74-99 mg/dL Glucose High 120 Result Comment: The [place] [employer] (ADA) provides guidance for cutoff values for fasting glucose and random glucose. The ADA defines fasting as no caloric intake for at least 8 hours. Fas ting plasma glucose results between 100 to 125 mg/dL indicate increased risk for diabetes (prediabetes). Fasting plasma glucose results greater than or equal to 126 mg/dL meet the criteria for diagnosis of diabetes. In the absence of unequivocal hyperglycemia, results should be confirmed by repeat testing. In a patient with classic symptoms of hyperglycemia or hyperglycemic crisis, random plasma glucose results greater than or equal to 200 mg/dL meet the criteria for diagnosis of diabetes. Reference: Standards of Medical Care in Diabetes 2016, [place] [employer]. Diabetes Care. 2016.39(Suppl 1). LAB BUN 7-21 mg/dL BUN High 34 LAB CRET 0.58-0.96 mg/dL Creatinine High 1.39 LAB NA 136-144 mmol/L Sodium 137 LAB K 3.7-5.1 mmol/L Potassium High 5.2 LAB CL 97-105 mmol/L Chloride 99 LAB CO2 22-30 mmol/L CO2 24 LAB AGAP 9-18 mmol/L Anion Gap 14 LAB ALT 7-38 U/L ALT 17 LAB GFRAA eGFR- Amer. 55 LAB GFRNAA . eGFR-All Other Races 45 Result Comment: eGFR (Estimated GFR) Units of measure: mL/min/1.73 meters squared eGFR is derived from the reexpressed MDRD Study equation using the following parameters: serum creatinine, age, gender and race. The creatinine assay has been calibrated to be traceable to IDMS. An eGFR <60 mL/min/1.73m2 for >3 months is consistent with chronic kidney disease. Refer to KDOQI guidelines for clinical interpretation. In patients with unstable renal function, e.g. those with acute kidney injury, the eGFR may not accurately reflect actual GFR. Performed By: #### PT, CMP, MG1, NTBNP, PHOS, CBCDIF #### [facility] [address] [place], [place] [address] MAGNESIUM Collected: 10/13/2017 Status: F Source: [place] 11:15 [facility] REPOSITORY TYPE CODE TESTS RESULT OUT OF REFERENCE UNITS RANGE LAB MG 1.7-2.3 mg/dL Magnesium 2.0 Performed By: #### PT, CMP, MG1, NTBNP, PHOS, CBCDIF #### [facility] [address] [place] [address] NT PRO BNP Collected: 10/13/2017 Status: F Source: [place] 11:15 [facility] REPOSITORY TYPE CODE TESTS RESULT OUT OF REFERENCE UNITS RANGE LAB PBNP <125 pg/mL High PRO B Natr [id number] Peptide Performed By: #### PT, CMP, MG1, NTBNP, PHOS, CBCDIF #### [place] [id number] [place] [address] PHOSPHORUS Collected: 10/13/2017 Status: F Source: [place] 11:[address] [place] [address] REPOSITORY TYPE CODE TESTS RESULT OUT OF REFERENCE UNITS RANGE LAB PHOS 2.7-4.8 mg/dL High Phosphorus 5.6 Performed By: #### PT, CMP, MG1, NTBNP, PHOS, CBCDIF #### [place] [address] CBC AND DIFFERENTIAL Collected: 10/13/2017 Status: F Source: [place] 11:15 [facility] REPOSITORY TYPE CODE TESTS RESULT OUT OF REFERENCE UNITS RANGE LAB WBC 3.70-11.00 k/uL WBC High 11.80 LAB RBC 3.90-5.20 m/uL Low RBC 2.90 LAB HGB 11.5-15.5 g/dL Low Hemoglobin 8.0 LAB HCT 36.0-46.0 % Low Hematocrit 26.6 LAB MCV 80.0-100.0 fL MCV 91.7 LAB MCH 26.0-34.0 pG MCH 27.6 LAB MCHC 30.5-36.0 g/dL Low MCHC 30.1 LAB RDWCV 11.5-15.0 % RDW-CV High 20.7 LAB PLTCT 150-400 k/uL Low Platelet Count 75 Result Comment: Result checked and verified No clot detected. LAB MPV 9.0-12.7 fL MPV <<DO NOT REPORT>> LAB ANEUT % Neut% 97.7 LAB AANEUT 1.45-7.50 k/uL Abs High Neut 11.53 LAB ALYMP % Lymph% 0.9 LAB AALYMP 1.00-4.00 k/uL Abs Low Lymph 0.11 LAB AMONO % [place]% 0.9 LAB AAMONO <0.87 k/uL Abs [place] 0.11 LAB AEOS % Eosin% 0.2 LAB AAEOS <0.46 k/uL Abs Eosin <0.03 LAB ABASO % Baso% 0.3 LAB AABASO <0.11 k/uL Abs Baso 0.03 LAB AUNRBC 0 /100 WBC NRBCs High 0.2 LAB ABNRBC <0.01 k/uL High Absolute nRBC 0.02 LAB DTYP DTYPE Auto Diff Performed By: #### PT, CMP, MG1, NTBNP, PHOS, CBCDIF #### [facility] [address] [place], [place] [address] TROPONIN T Collected: 10/13/2017 Status: F Source: [place] 9:00 PM [facility] REPOSITORY TYPE CODE TESTS RESULT OUT OF REFERENCE UNITS RANGE LAB TROPT 0.000-0.029 ng/mL High Troponin T 0.034 Result Comment: Called to and read back by: Bessy De Paz G61 10/13/17 21:58 [place] Performed By: #### AMINAH #### [facility] [address] [place], [place] [address] URINALYSIS Collected: 10/13/2017 Status: F Source: [place] 6:46 PM [facility] REPOSITORY TYPE CODE TESTS RESULT OUT OF RANGE REFERENCE UNITS LAB UCOL Yellow Abnormal Alert Color Red Result Comment: Less Than 2 CC Received LAB [facility] Clear Abnormal Alert Clarity Cloudy LAB UGLUC Negative mg/dL Glucose, Urine Negative LAB UBIL Negative Abnormal 1+ Alert Bilirubin, Urine Result Comment: Suggest correlation with clinical findings and serum bilirubin if clinically indicated. LAB UKET Negative Ketones, Urine Negative LAB USPG 1.005-1.030 High Specific [place], Ur >1.030 LAB UHGB Negative Abnormal 3+ Alert Hemoglobin/Blood,U r LAB UPH 4.5-8.0 pH 6.0 LAB UPROT Negative mg/dL Abnormal Protein, Urine Alert >=300 LAB UUROB Normal Urobilinogen Normal LAB UNITR Negative Abnormal Nitrites Alert Positive LAB ULKEST Negative Abnormal Leukest 2+ Alert Performed By: #### UA, PT, CBC, UAMIC #### [facility] [address] [place], [place] [address] PROTIME Collected: 10/13/2017 Status: F Source: [place] 6:46 PM [facility] REPOSITORY TYPE CODE TESTS RESULT OUT OF RANGE REFERENCE UNITS LAB PSEC 9.7-13.0 sec High PT Sec 16.8 LAB INR 0.9-1.3 High PT INR 1.7 Result Comment: Vitamin K Antagonist (VKA) Therapeutic Range: INR 2 to 3 (Target INR of 2.5) Note: For patients treated with VKA drugs, such as warfarin, the [place] [employer] 2012 Guideline recommends a therapeutic INR range of 2 to 3 (target INR of 2.5). This recommendation includes high-risk patients with antiphospholipid syndrome with previous arterial or venous thromboembolism, current-generation mechanical or bioprosthetic aortic heart valve replacement. Note: Patients with mechanical aortic valve replacement and additional risk factors for thromboembolic events (atrial fibrillation, previous thromboembolism, LV dysfunction, hypercoagulable conditions) or an older generation mechanical AVR (i.e., ball in-Cage) or any mechanical MVR should have a INR therapeutic range of 2.5 to 3.5 (target INR of 3). Michael GH, et al. Chest 2012, 141:7S-47S Diogenes RESENDIZ et al. [facility] 2017, 70: 252-289 Performed By: #### UA, PT, CBC, UAMIC #### [facility] [address] [place], [place] [address] CBC Collected: 10/13/2017 Status: F Source: [place] 6:46 PM [facility] REPOSITORY TYPE CODE TESTS RESULT OUT OF REFERENCE UNITS RANGE LAB WBC 3.70-11.00 k/uL WBC High 13.01 LAB RBC 3.90-5.20 m/uL Low RBC 2.86 LAB HGB 11.5-15.5 g/dL Low Hemoglobin 8.1 LAB HCT 36.0-46.0 % Low Hematocrit 26.8 LAB MCV 80.0-100.0 fL MCV 93.7 LAB MCH 26.0-34.0 pG MCH 28.3 LAB MCHC 30.5-36.0 g/dL Low MCHC 30.2 LAB RDWCV 11.5-15.0 % RDW-CV High 20.6 LAB PLTCT 150-400 k/uL Low Platelet Count 75 Result Comment: Result checked and verified No clot detected. LAB MPV 9.0-12.7 fL MPV <<DO NOT REPORT>> LAB ABSNUC <0.01 k/uL 0.03 High Absolute nRBC Performed By: #### UA, PT, CBC, UAMIC #### [facility] [address] [place] [address] URINE MICROSCOPIC (FOR Collected: 10/13/2017 Status: F Source: [place] LAB USE ONLY) 6:46 PM [facility] REPOSITORY TYPE CODE TESTS RESULT OUT OF RANGE REFERENCE UNITS LAB UWBC 0-5 /HPF Abnormal Alert WBC 6-10 LAB URBC 0-3 /HPF Abnormal Alert RBC >25 LAB UCAST 0 /LPF Cast SEE COMMENT Result Comment: 0 LAB UEPI /HPF Epithelial SEE Cells COMMENT Result Comment: Squamous Epithelial Cells Few Non-Squamous Epithelial Cells Performed By: #### UA, PT, CBC, UAMIC #### [facility] [address] [place] [id number] GASA + ALL Collected: 10/13/2017 Status: F Source: [place] FOR 5:08 PM [facility] RADIANCE USE ONLY REPOSITORY TYPE CODE TESTS RESULT OUT OF REFERENCE UNITS RANGE LAB PH 7.35-7.45 pH Low 7.30 LAB PCO2 34-46 mm Hg pCO2 High 49 LAB PO2 85-95 mm Hg pO2 High 252 LAB BE mmol/L Base Excess NEG 2 LAB HCO3 22-26 mmol/L Bicarbonate 24 LAB CO2CT 22.0-28.0 mmol/L CO2 Content 25 LAB O2HB 95-98 % Oxyhemoglobin, Art. 97 LAB COHB 0-5.0 % Carboxyhemoglobin,A 1.6 rt LAB MHGB 0.4-1.5 % Methemoglobin 0.7 LAB TEMP C Temperature, Body 37.0 LAB PHTC 7.35-7.45 pH, Temp Low Corrected 7.30 LAB PCO2T 34-46 mm Hg pCO2, Temp High Correct 49 LAB PO2T mm Hg pO2, Temp Corrected 252 LAB NAB 132-148 mmol/L Sodium,Whole Bld 136 LAB KWB 3.5-5.0 mmol/L Potassium, Whole Bld 4.0 LAB HGBB 11.5-15.5 g/dL Low Hemoglobin,Total,AC 8.0 L LAB HCTB 36.0-46.0 % Hematocrit, ACL Low 25 LAB IC 1.08-1.30 mmol/L Calcium, Ion, WB 1.10 LAB GLB 60-105 mg/dL Glucose,Whole Bld 81 LAB LACT 0.5-2.2 mmol/L Lactate 0.7 Performed By: #### ALLBG #### [facility] [place] [address] Observed: 10/13/2017 Status: F Source: [facility] PNEUMO AG DETECT 4:57 PM [facility] REPOSITORY Test Result - Negative for S.pneumoniae antigen. Presumptive negative for pneumococcal pneumonia, suggesting no current or recent pneumococcal infection. Infection due to S.pneumoniae cannot be ruled out since the antigen present in the sample may be below the detection limit of the test. Performed By: #### SPNAG #### [facility] [address] [place] [id number] LEGIONELLA URINE AG Collected: 10/13/2017 Status: F Source: [place] 4:57 PM [facility] REPOSITORY TYPE CODE TESTS RESULT OUT OF REFERENCE UNITS RANGE LAB LEGUAG Negative Legionella Urine Negative Ag Result Comment: Negative for L. pneumophila serogroup 1 antigen in urine, suggesting no recent or current infection. Legionnaires disease cannot be ruled out since other serogroups and species may also cause disease. Performed By: #### LEGUAG #### [facility] [address] [place], [place] [address] CONSULT Observed: 10/13/2017 Status: COMPLETED Source: [place] 4:39 PM [facility] REPOSITORY HNO ID: [id number] Author: Dominique Rios Service: Hematology/Oncology Author Type: Physician Type: Consults Filed: 10/13/2017 7:19 PM Note Text: [facility] Initial Consult Note PATIENT NAME: Paloma Cannon [facility] #: [id number] ATTENDING PHYSICIAN: Dr. Castro DATE OF SERVICE: 10/13/2017 Room/Bed: [place] [address]/[place] [address] REASON FOR CONSULT: Antiphospholipid syndrome Consulting PHYSICIAN: Dr. Castro A/P: 27 y/o female with PMHx of Triple-positive Anti-phospholipid Syndrome diagnosed in 2013?(catastrophic APS complicated by PE/DVT), needing plasmapheresis q2 weeks, Diffuse Alveolar Hemorrhage (On prednisone and Cytoxan), who was admitted to MICU for further management of alveolar hemorrhage s/p intubation. Most recent APS antibody titers (09/18) were: ACL IgG 61 and Anti-B2GP1 IgG >150. ? -Patient is scheduled for next plasma exchange on 10/16 (Monday) and 10/18 (Monday). No need for urgent plasma exchange. - Please hold coumadin given concern for alveloar hemorrhage -Agree with Solumedrol 250mg Q12H for diffuse alveolar hemorrhage. - Please obtain B/L lower extremities doppler to rule out any DVT -Thrombocytopenia multifactorial, 2/2 increased consumption in the setting of APS and drug effect from Cytoxan. Monitor CBC daily, transfuse if platelets<50,000 given diffuse alveolar hemorrhage. Case seen and discussed with Dr. Rios. Hematology will follow. Juan Christopher MD Fellow, Hematology and Medical Oncology Pager: [phone] HPI: This is a 27 y/o female with PMHx of Triple-positive Anti-phospholipid Syndrome diagnosed in 2013?(catastrophic APS complicated by PE/DVT requiring extensive percutaneous thrombectomy of her IVC + lower extremity veins with placement of bilateral iliac venous stents and an IVC endograft), needing plasmapheresis q2 weeks, Diffuse Alveolar Hemorrhage (On prednisone and Cytoxan), who was admitted to MICU for further management of alveolar hemorrhage. Presented to [facility] ED with hemoptysis/SOB - found to be in increased work of breathing and low sats - was intubated (10/13/17). Initial labs: Hgb 10.1, WBC 17, INR 2.1 (last dose of Warfarin 5 mg on 10/12/17 evening), Cr 1.32, K 5.0, Bicarb 18, AG 18, Lactate 12.4. ? Of note, patient follows with Dr. Andujar for APS and next scheduled plasma exchange is on 10/16/2017. Of note, patient has a h/o HIT (however, anti-PF4 on 12/07/2013 negative) and is on coumadin for AC for VTE in the setting of APS. ROS: Unable to obtain PREVIOUS MEDICAL HISTORY PAST MEDICAL HISTORY Diagnosis Date - (HFpEF) heart failure with preserved ejection fraction (HCC) 02/20/2016 HFpEF w last EF 50-55% On Torsemide, coreg, hydralazine and imdur at home No signs of acute exacerbation on admission Plan: -Continue home medications - Anasarca 11/29/2013 - Anemia 03/10/2015 Chronic microcytic anemia. 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 Thrombosis, and Diffuse Alveolar Hemorrhage. On Warfarin and PLEX (Twice Weekly)? Plan: -Warfarin 5mg qday-holding for planned EGD on 01/11 d/t supra therapeutic INR -Cont. PO Prednisone 10mg MWFS and 5mg TTS -Pantoprazole for GI PPx of Above -Apharesis was supposed to be yesterday, will contact plasmapheresis team on recommendations - Antiphospholipid syndrome (HCC) - Catastrophic Antiphospholipid antibody syndrome 11/09/2013 - Cholelithiasis 01/11/2017 Likely cause of recent pancreatitis. Plan: Per general surgery, no acute surgical intervention at this time. Will await results of EGD. If active gastritis, favor outpatient cholecystectomy. If no active gastritis on EGD, plan for cholecystectomy this admission. - CKD (chronic kidney disease) stage 3, GFR 30-59 ml/min 07/06/2016 Baseline SCr 1.5-1.7 Plan: -renally dose medications -avoid nephrotoxic agents - DVT (deep venous thrombosis) (HCC) - Elevated CA-125 11/30/2013 244 - Essential hypertension 10/08/2015 Stable on home medications Plan: -continue to monitor on home meds - 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 Bivalirudin to Warfarin bridging - HIT (heparin-induced thrombocytopenia) (HCC) - Nontoxic multinodular goiter - Obese - Obesity, Class III, BMI >= 40 (morbid obesity) E66.01 10/18/2016 - Peripheral neuropathy 04/14/2016 - Severe protein-calorie malnutrition (HCC) 12/29/2015 PREVIOUS SURGICAL HISTORY PAST SURGICAL HISTORY Procedure Laterality Date - PAST SURGICAL HISTORY OF 2012 IVC thrombectomy - PAST SURGICAL HISTORY OF 2012 b/l iliac v. 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 - Iv Contrast [Iodine] Other: See Comments shuts kidneys down per patient - Rituximab Other: See Comments Elevated cardiac enzymes MEDICATIONS Current hospital medications: sulfamethoxazole-trimethoprim 800-160 mg 1 tablet (BACTRIM DS,SEPTRA DS) 1 tablet ORAL potassium chloride ER 40 mEq tab(s) (K-DUR, KLOR-CON) 40 mEq ORAL/FEEDING TUBE q 2 H PRN magnesium sulfate in water 4-6 g in sterile water 50 ml 4- 6 g INTRAVENOUS PRN sodium phosphate 45 mmol in NaCl 0.9% 250 mL 45 mmol INTRAVENOUS PRN insulin regular human injection (short acting) (NovoLIN R,HumuLIN R) SUBCUTANEOUS q 6 H insulin regular 250 units in NaCl 0.9% 250 mL iv infusion - ICU NOMOGRAM 0.5-30 Units/hr INTRAVENOUS CONTINUOUS insulin regular human iv bolus 2-10 Units 2-10 Units INTRAVENOUS PRN dextrose 50% in water 25-50 mL syringe 12.5-25 g INTRAVENOUS PRN dextrose 40 % 15 g 15 g ORAL PRN glucagon 1 mg injection (GLUCAGEN) 1 mg SUBCUTANEOUS PRN [START ON 10/14/2017] pantoprazole 40 mg injection (PROTONIX) 40 mg INTRAVENOUS DAILY (6 AM) fentaNYL 50 mcg/mL 50-100 mcg injection (SUBLIMAZE) 50-100 mcg INTRAVENOUS q 15 MIN PRN propofol iv bolus 20 mg (DIPRIVAN) 20 mg INTRAVENOUS q 30 MIN PRN piperacillin-tazobactam 3.375 g in dextrose (iso-osmotic) 50 mL (ZOSYN) 3.375 g INTRAVENOUS q 6 H vancomycin dosing and monitoring per pharmacy OTHER As Directed vancomycin 1.5 g in D5W 250 mL (VANCOCIN) 0.015 g/kg/dose INTRAVENOUS q 18 HR methylPREDNISolone sodium succinate 250 mg in NaCl 0.9% 100 mL (Solu-MEDROL) 250 mg INTRAVENOUS q 12 H white petrolatum-mineral Oil 83-15 % (LUBRIFRESH P.M.) BOTH EYES q 6 H docusate 100 mg CUP (COLACE) 100 mg ORAL/FEEDING TUBE BID sennosides 8.8 mg/5 mL 8.8 mg (SENNA) 8.8 mg ORAL/FEEDING TUBE BID Chlorhexidine Gluconate 0.12 % 15 mL (PERIDEX) 15 mL ORAL QID fentaNYL 20 mcg/mL iv infusion in NaCl 0.9% 100 mL 250 mcg/hr INTRAVENOUS CONTINUOUS propofol infusion (DIPRIVAN) 50 mcg/kg/min INTRAVENOUS CONTINUOUS atracurium 500 mg in D5W 100 mL (TRACRIUM) 5-15 mcg/kg/min INTRAVENOUS CONTINUOUS NORepinephrine 16 mg in D5W 250 mL (LEVOPHED) 0.6-20 mcg/min INTRAVENOUS CONTINUOUS FAMILY HISTORY FAMILY HISTORY Problem Relation Age of Onset - Breast Cancer Mother spine BRCA neg - Ovarian cyst [OTHER] Mother - ovarian cyst [OTHER] Sister - Thyroid No Family History SOCIAL HISTORY Social History Marital status: Spouse name: Years of education: Number of children: Occupational History Occupation 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 Social History Main Topics Smoking status: Never Smoker Smokeless status: Never Used Alcohol use: No Drug use: No Sexual activity: Not Currently PHYSICAL EXAMINATION: ECOG Status: Unable to assess Temp (24hrs), Av.1 ?C (98.7 ?F), Min:36.8 ?C (98.2 ?F), Max:37.2 ?C (99 ?F) 10/13/17 1545 10/13/17 1600 10/13/17 1615 10/13/17 1630 BP: (!) 82/46 (!) 79/43 Pulse: 80 79 78 74 Resp: Temp: 36.9 ?C (98.4 ?F) 36.9 ?C (98.4 ?F) 36.9 ?C (98.4 ?F) 36.8 ?C (98.2 ?F) TempSrc: SpO2: 100% 100% 100% 100% Weight: Height: Intake/Output Summary (Last 24 hours) at 10/13/17 1639 Last data filed at 10/13/17 1400 Gross per 24 hour Intake 0 ml Output 45 ml Net -45 ml General: Intubated and sedated HEENT: Grossly PERRLA, EOMI, anicteric Heart/CV: Grossly RR Lungs/Resp/Chest: Normal chest wall movement. Abd: Grossly ND, no HSM, no other masses Extremities/Skin: B/L swelling of the feet LABS/IMAGING/PATHOLOGY Component Latest Ref Rng AND Units 10/04/2017 10/05/2017 10/13/2017 WBC 3.70 - 11.00 k/uL 5.41 5.04 11.79 (H) RBC 3.90 - 5.20 m/uL 2.85 (L) 3.08 (L) 2.97 (L) Hemoglobin 11.5 - 15.5 g/dL 7.8 (L) 8.4 (L) 8.4 (L) Hematocrit 36.0 - 46.0 % 25.8 (L) 27.9 (L) 27.6 (L) MCV 80.0 - 100.0 fL 90.5 90.6 92.9 MCH 26.0 - 34.0 pG 27.4 27.3 28.3 MCHC 30.5 - 36.0 g/dL 30.2 (L) 30.1 (L) 30.4 (L) RDW-CV 11.5 - 15.0 % 20.3 (H) 20.5 (H) 20.7 (H) Platelet Count 150 - 400 k/uL 121 (L) 121 (L) 73 (L) MPV 9.0 - 12.7 fL 12.0 10.7 <<DO NOT REPORT>> Neut% % 92.2 Abs Neut (ANC) 1.45 - 7.50 k/uL 10.87 (H) Lymph% % 2.6 Abs Lymph 1.00 - 4.00 k/uL 0.31 (L) [place]% % 1.7 Abs [place] <0.87 k/uL 0.20 Eosin% % 2.6 Abs Eosin <0.46 k/uL 0.31 Baso% % 0.0 Abs Baso <0.11 k/uL 0.00 ANC(includeSEG+BAND) k/uL [place]% % Myelo% % 0.9 Anisocytosis Present Left Shift Present Ovalocytes Few Polychromasia Slight RBC Fragments Moderate Tear Drop Few Platelet Estimate Platelet estimate decreased Diff Type Manual Diff Acanthocyte NRBC 0 /100 WBC Giant Platelets Nucleated Reds 0 /100 WBC Absolute nRBC <0.01 k/uL <0.01 <0.01 Component Latest Ref Rng AND Units 10/04/2017 10/05/2017 10/13/2017 PT Sec 9.7 - 13.0 sec 11.0 11.2 19.8 (H) PT INR 0.9 - 1.3 1.1 1.1 2.0 (H) Juan Christopher MD Fellow, Hematology and Medical Oncology Pager: [phone] DR. FRED STONE, [facility] STAFF PHYSICIAN NOTE OF PERSONAL INVOLVEMENT IN CARE I have reviewed the history and physical examination and consult note obtained and documented by the fellow and I personally participated in the fernandes components. I have discussed the case and management of the patient's care. The following comments revise or confirm relevant fernandes components of their note. Patient was seen and examined at the bedside and I discussed her case with the medical ICU team who was also there. I have also discussed her case with her outpatient academic support center director Dr. Kem Bishop and with the Apheresis service. Chart and history reviewed and agree with documentation as above. Patient is critically ill. She has antiphospholipid antibody syndrome with presentation of catastrophic APS in the past. She has been managed with steroid therapy, scheduled a pheresis every 2 weeks, and most recently has been on oral Cytoxan. She has not had severe diffuse alveolar hemorrhage episodes recently but presents now with significant bleeding and bilateral infiltrates most concerning for another episode of diffuse alveolar hemorrhage. The plan at this time is for her to undergo plasma exchange on Monday and next Monday. She will continue on high-dose Solu-Medrol 250 mg IV every 12 hours. Agree that in the setting of acute hemorrhage she should be off anticoagulation. Platelets are above 50,000 but agreed that should they fall below this level and she continues to have worsening pulmonary picture it would be very reasonable to give her a unit of platelets at that point. Hematology is following closely with you and will see her through the weekend. For the opportunity of participating in the care of this dear lady. SIGNATURE: Dominique Rios DO PAGER: [phone] DATE of SERVICE: October 13, 2017 TIME of SERVICE: 7:18 PM EMERGENCY DEPARTMENT Observed: 10/13/2017 Status: F Source: [place] SUMMARY 4:34 PM [facility] REPOSITORY [facility] Medical Records Department [address] [place] [address] Emergency Department Summary 10/13/17 1046 MR#: [id number] Acct: [id number] Name: PALOMA CANNON Rep #: [id number] : 1990 27 From: Lydia Harley MD PCP: Peyton Rgoers MD Status: DEP ER - ER Visit Summary Date of Service: 10/13/17 Chief Complaint: Respiratory distress History of Present Illness: The patient is a 27 F with respiratory distress, severe shortness of breath, nausea, vomiting. The patient has a history of PE, antiphospholipid antibody syndrome, heparin-induced thrombocytopenia, alveolar hemorrhage, and sepsis. She had similar symptoms in the past with alveolar hemorrhage. She required intubation and she was transferred to the [facility] as she required plasmapheresis. She is requesting transfer there again today. She is extremely short of breath and cannot provide much more history, but she said she required intubation with this in the past. Physical Examination: Hypertensive in the 190s systolic, tachycardic at 125, afebrile, oxygen saturations in the 80s on a nonrebreather mask. Pale skin. Short sentences, respiratory distress. Tachycardic. Coarse breath sounds bilaterally. Lower extremity edema noted, symmetric. Pulses strong and equal. Test Results: EKG showed sinus rhythm at a rate of 124. Chest x-ray, performed after intubation, shows support tubes in place with bilateral diffuse airspace disease. Labs are still pending. ABG showed a pH of 7.1, O2 of 85, and CO2 of 56.9. Cultures pending. Emergency Department Course and Treatment: Patient required intubation shortly after arrival for hypoxia and anticipated clinical course. This was performed with direct visualization, etomidate, and succinylcholine. Good color change on capnography and good position on x-ray. Patient was sedated with propofol and seemed to tolerate this well. She was placed on a low tidal volume with high PEEP and required suction. Head of the bed was raised. This seemed to help with oxygenation and she remained in the mid 90s on 100% oxygen. X-ray showed diffuse airspace disease. She was started on Zosyn and vancomycin. INR 2.1. Family says that she is kept between 2 and 3 and not higher because of her history of alveolar hemorrhage. Patient will require plasmapheresis. We do not have those capabilities at this hospital. They are requesting the [facility]. I spoke with Dr. Mathieu Christie. The ICU is full and I am awaiting a call back from him. I will continue to stabilize and resuscitate here. I did have our can intake worker see the patient in the emergency department for any other further input. Dr. Buchanan made some changes to the ventilator. Will await transport by helicopter service. Treatment Plan: As above Disposition: Transfer Impression: 1. Acute respiratory failure 2. Alveolar hemorrhage This note was generated with [employer] dictation software. It may contain incorrect words, spelling, and punctuation that were not noted in review of the chart prior to signing ED Disposition - Plan for ED Patient: Chief Complaint: Shortness of Breath Referrals: Peyton Rogers MD [Primary Care Provider] - What to do if you have Problems For any increased pain, shortness of breath, bleeding, nausea or vomiting, chest pain, or any unexpected problems, contact your Primary Care Provider. Call [facility] ([phone]) or report to the closest Emergency Room. Call 911 if necessary. 10/13/17 1634 <Electronically signed by Lydia Harley MD> Date Lydia Harley MD Cosigner Signature (If Indicated): Date CC: Peyton Rogers MD C3 COMPLEMENT Collected: 10/13/2017 Status: F Source: [place] 4:30 PM [facility] REPOSITORY TYPE CODE TESTS RESULT OUT OF REFERENCE UNITS RANGE LAB C3COMP 86-166 mg/dL Low C3 Complement 67 Performed By: #### C3COMP, C4COMP, SMAB, DNAAB #### [place] [address] C4 COMPLEMENT Collected: 10/13/2017 Status: F Source: [place] 4:30 [facility] REPOSITORY TYPE CODE TESTS RESULT OUT OF REFERENCE UNITS RANGE LAB C4COMP 13-46 mg/dL Low C4 Complement 9 Performed By: #### C3COMP, C4COMP, SMAB, DNAAB #### [facility] [address] [place] [address] SM ANTIBODY Collected: 10/13/2017 Status: F Source: [place] 4:30 [facility] REPOSITORY TYPE CODE TESTS RESULT OUT OF REFERENCE UNITS RANGE LAB SMAB <1.0 AI Sm Antibody <0.2 Result Comment: NEGATIVE Negative: <1.0 AI Positive: >0.9 AI Performed By: #### C3COMP, C4COMP, SMAB, DNAAB #### [place] [address] DNA ANTIBODY Collected: 10/13/2017 Status: F Source: [place] 4:30 [facility] REPOSITORY TYPE CODE TESTS RESULT OUT OF REFERENCE UNITS RANGE LAB DNAAB1 <30 IU/mL DNA Antibody <12 Result Comment: Negative for ds DNA Antibodies Negative: <30 IU/mL Equivocal: 30-74 IU/mL Positive: >74 IU/mL Performed By: #### C3COMP, C4COMP, SMAB, DNAAB #### [facility] [address] [place], [place] [address] FUNGITELL B-D-GLUCAN Collected: 10/13/2017 Status: F Source: [place] 4:30 PM [facility] REPOSITORY TYPE CODE TESTS RESULT OUT OF REFERENCE UNITS RANGE LAB BDASAY Negative Fungitell Assay Negative Result Comment: (NOTE) INTERPRETIVE INFORMATION: (1,3)-rvzg-I-mqjpov (Fungitell) Less than 31 pg/mL ................... Negative 31-59 pg/mL .......................... Negative 60-79 pg/mL .......................... Indeterminate Greater than or equal to 80 pg/mL .... Positive The Fungitell test is indicated for presumptive diagnosis of fungal infection and should be used in conjunction with other diagnostic procedures. This test does not detect certain fungal species such as Cryptococcus, which produce very low levels of (1,3)-lizs-Q-xmiora. This test will not detect the zygomycetes, such as Absidia, Mucor, and Rhizopus, which are not known to produce (1,3)-dofs-K-hwkklc. In addition, the yeast phase of Blastomyces dermatitidis produces little (1,3)-dtwm-R-mgifjg and may not be detected by the assay. Performed by [facility], [address] [place] [address] [email or web address], Red Brasher MD, Lab. Director LAB BDCMNT pg/mL Fungitell Comments <31 Performed By: #### BDGLUC #### [facility] [address] [place] [address] [phone] PROCEDURE Observed: 10/13/2017 Status: COMPLETED Source: [place] 4:18 PM [facility] REPOSITORY HNO ID: [id number] Author: Dm Alvarado Service: Critical Care Author Type: Physician Type: Procedures Filed: 10/17/2017 11:09 AM Note Text: BEDSIDE PROCEDURE NOTE PROCEDURE DATE: October 13, 2017 PROCEDURE START TIME: 4:19 PM PRIMARY PROCEDURALIST: Gael Bear MD PROFESSOR OF CHEMICAL ENGINEERING(S): None INFORMED CONSENT: Informed Consent obtained and on the chart UNIVERSAL PROTOCOL / SAFETY CHECKLIST Sign in Communication: Completed Time Out: Team Confirms the Correct Patient, Correct Procedure, Correct Site and Site Marking, Correct Position (if applicable), Prep and Dry Time (if applicable). Time: 4:19 PM Affirmation of Time Out: YES Sign Out Discussion: Completed PROCEDURE: ARTERIAL CATHETER INSERTION Line/Indication: Single lumen for Monitoring of vital bodily functions (BP, pH, paO2, paCO2) Anesthesia/Sedation: IV Analgesia; see MAR and IV Sedation; see MAR Insertion Site: Right radial arteryArea Prep: Chlorhexidine gluconate Technique Used to Place Line: Modified Seldinger Ultrasound was used to visualize a patent artery prior to the start of the procedure. The vessel was cannulated under direct ultrasound visualization with a 20 gauge catheter on the second attempt. A straight- tipped spring wire was passed into the artery through the indwelling catheter and left in situ while the catheter was removed. A 20 gauge catheter was advanced over the guidewire and left in situ while the guidewire was removed. Pulsatile blood flow exited the catheter and an arterial waveform was noted on the monitor when the catheter was transduced. The catheter was secured in place with sterile sutures. A sterile dressing was applied and dated. All catheters, needles and/or wires were accounted for and intact: Yes. Patient tolerated procedure well. Complications: None No Specimens Collected Unless Noted Here Estimated Blood Loss: Scant SIGNATURE: Gael Bear MD PATIENT NAME: Paloma Cannon DATE: October 13, 2017 TIME: 4:19 PM PAGER/CONTACT #: [phone] I was present for the entire procedure and supervised the fellow Dm Alvarado MD MPH MSc CASE MGT INIT Observed: 10/13/2017 Status: COMPLETED Source: [place] 2:17 PM [facility] REPOSITORY HNO ID: [id number] Author: Radha SanchezRn) JEFF Hope Service: Case Management Author Type: Registered Nurse Type: Care Mgt Initial Assessment Filed: 10/13/2017 2:25 PM Note Text: CARE MANAGEMENT: ASSESSMENT AND DISCHARGE PLAN SERVICE DATE: 10/13/2017 SERVICE TIME: 2:17 PM PRIMARY CARE PHYSICIAN: PEYTON ROGERS MD ADMISSION STATUS: Inpatient Needs Prior to Discharge: To Be Determined MEDICAL: 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 No Advance Directive: Health Literacy Assessment: Patient is unable to complete at this time due to Pt intubated and sedated. . FUNCTIONAL AND COGNITIVE/BEHAVIORAL PRIOR TO ADMISSION ASSESSMENT: Unable to complete assessment at this time due to Pt intubated and sedated. Has the Patient Been in a Jail Facility in the Past 30 days? TBD SOCIAL: Living Arrangement: TBD Lives With: TBD Financial Resources: TBD Primary Contact: Extended Emergency Contact Information Primary Emergency Contact: Morteza Cannon Address: [address] [place] [address] Mobile Relation: Spouse Secondary Emergency Contact: SharonjessicamelissaMorgan Mobile Relation: Father Mother: Jane Aiken Coy Supportive: Yes, TBD Other Important Patient Contacts: None Caregiver Assessment: Caregiver is ready, willing and able to meet the patient's needs as recommended by the inter-professional team? TBD Patient's transition needs and plan for meeting these needs: TBD Does the patient have an acute stroke diagnosis, or has the patient had a stroke during this admission? No Medicaiton Adherence: Patient is unable to complete at this time due to Pt intubated and sedated. . Are you interested in bedside delivery of your medications? No Food Concerns: In the Last Month, Have You had Trouble Getting Food? No trouble getting food During the Last Month, Have You Worried Whether Your Food Would Run Out Before You Had Enough Money to Buy More? No Is the Patient Psychosocially Complex? No ASSESSMENT AND PLAN: Medical Needs: 2 or more chronic diseases Psychosocial Needs: None FREEDOM OF CHOICE EXPLAINED: Pt intubated and sedated POTENTIAL TRANSITION PLANS To Be Determined Unable to complete initial assessment at bedside. Pt intubated and sedated with no family at bedside. CM unable to reach emergency contact by phone. All information obtained through shared medical record. Pt transferred to MICU from OS ICU already intubated. SIGNATURE: Radha Hope RN PATIENT NAME: Paloma Cannon DATE: October 13, 2017 TIME: 2:17 PM PAGER/CONTACT #: [phone] GASV + ALL Collected: 10/13/2017 Status: F Source: [place] 1:42 PM [facility] REPOSITORY TYPE CODE TESTS RESULT OUT OF REFERENCE UNITS RANGE LAB VPH 7.32-7.42 pH 7.33 LAB VPC2 42-55 mm Hg pCO2 48 LAB VPO2 35-45 mm Hg pO2 62 High LAB VBE mmol/L Base Excess 0 LAB VHC3 24-28 mmol/L Bicarbonate 25 LAB VC2C 25-29 mmol/L CO2 Content 27 LAB O2HBCX 60-85 % 84 Oxyhemoglobin, Rajeev. LAB CO <2.0 % 2.1 High Carboxyhemoglobin ,Rajeve LAB METHB 0.4-1.5 % 0.9 Methemoglobin LAB VTMP C 37.0 Temperature, Body LAB VPHTC 7.32-7.42 pH, Temp 7.33 Corrected LAB VPC2T mm Hg pCO2, Temp 48 Correct LAB VPO2T mm Hg pO2, Temp 62 Corrected LAB NAB 132-148 mmol/L 137 Sodium,Whole Bld LAB KWB 3.5-5.0 mmol/L Potassium, 3.5 Whole Bld LAB HGBB 11.5-15.5 g/dL 8.3 Low Hemoglobin,Total, ACL LAB HCTB 36.0-46.0 % Hematocrit, 26 Low ACL LAB IC 1.08-1.30 mmol/L Calcium, 1.14 Ion, WB LAB GLB 60-105 mg/dL 69 Glucose,Whole Bld LAB LACT 0.5-2.2 mmol/L Lactate 1.2 LAB VCBDTE Notify [id number] Date, Rajeev LAB VCBTME Notify Time, Rajeev LAB VBGCOM Blood Gas O2 Comm, Rajeev Administration 100% Performed By: #### VALLBG #### [facility] [address] [place], [place] [address] XR ABDOMEN 1V SUPINE Observed: 10/13/2017 Status: F Source: [place] 1:31 PM [facility] REPOSITORY * * *Final Report* * * DATE OF EXAM: Oct 13 2017 1:31PM [facility] [id number] - XR ABDOMEN 1V SUPINE / PROCEDURE REASON: Abdominal pain * * * * Physician Interpretation * * * * PLAIN FILM OF THE ABDOMEN CLINICAL INFORMATION: Nasogastric/orogastric tube placement. DATE: 10/13/2017 TECHNIQUE: Supine abdomen 1 view(s), 1 image(s), COMPARISON: 08/26/2017 RESULT: See Impression. IMPRESSION: There is a nasogastric/orogastric tube in place with tip in the gastric antrum and side port below the level of the diaphragm.. There are no dilated loops of bowel. Surgical clips in the right upper quadrant. Endovascular stent in the inferior aorta and bilateral iliac arteries. Practice Support Specialist: PSCGaudencio Transcribe Date/Time: Oct 13 2017 1:59P Dictated by : LINDA DEE MD This examination was interpreted and the report reviewed and electronically signed by: YASMINE VINSON MD on Oct 13 2017 2:22PM EST [id number] XR CHEST 1V FRONTAL Observed: 10/13/2017 Status: F Source: [facility] 1:31 PM [facility] REPOSITORY * * *Final Report* * * DATE OF EXAM: Oct 13 2017 1:31PM [facility] [id number] - XR CHEST 1V FRONTAL PORT / PROCEDURE REASON: SOB (shortness of breath) * * * * Physician Interpretation * * * * EXAMINATION: CHEST RADIOGRAPH (PORTABLE SINGLE VIEW AP) Exam Date/Time: 10/13/2017 1:31 PM Indication: SOB (shortness of breath) MQ: XCP_4 Comparison: Chest radiograph dated 09/29/2017 RESULT: See impression. IMPRESSION: Lines, tubes, and devices: Interval intubation with the endotracheal tube tip located above the remy. NG/OG tube is new and extends below the diaphragm. Left-sided central venous catheters x2 are in stable position. Lungs and pleura: Diffuse bilateral airspace opacities have progressed in the interval. Differential diagnosis includes pulmonary edema (either cardiogenic or noncardiogenic), diffuse alveolar hemorrhage, and/or pneumonia/aspiration. There may be small bilateral pleural effusions. Bibasilar atelectasis. No pneumothorax. Cardiomediastinal silhouette: Stable enlargement of the cardiomediastinal silhouette. Other: Practice Support Specialist: CLAUDIAB Transcribe Date/Time: Oct 13 2017 4:13P Dictated by : GUILLAUME STARKEY MD This examination was interpreted and the report reviewed and electronically signed by: GUILLAUME STARKEY MD on Oct 13 2017 4:15PM EST [id number] PROGRESS Observed: 10/13/2017 Status: COMPLETED Source: [place] 1:28 PM [facility] REPOSITORY HNO ID: [id number] Author: Kit Castro Service: Critical Care Author Type: Physician Type: Progress Notes Filed: 10/13/2017 2:41 PM Note Text: MICU Staff Is having double triggering on the ventilator despite ventilator manipulations. Better with sedation. Not hypotensive Currently on volume control ventilation, PEEP 14 cmH2O, FiO2 90%. DATA BASE CXR today personally reviewed and shows bilateral alveolar infiltrates worse on the right and significantly progressed since 09.29.2017 PT INR 2.0, Platelets 73 K. Hb 11.79 WBC 11.8, Hb 8.4 Cardia ECHO 2. with EF 50% with mildly decreased LV function. Normal RV function Outside labs with lactate 12.4, Cr 1.32 (at baseline), INR 2.1 (received warfarin 10.12.2017) Hb 10.1 WBC 17 ABG on 100% PEEP 14 cmH2O FiO2 pH 7.29, pCO2 44, pO2 79 More current lactate 1.2 Manager Nursing 34 ASSESSMENT Acute hypoxemic respiratory failure with bilateral alveolar infiltrates and differential of pneumonia vs. alveolar hemorrhage intubated 10.13.2017 when she presented with hemoptysis increased WOB starting with dry cough, then copious hemoptysis developing within hours. Two previous bronchoscopies 01/2016 and did not show alveolar hemorrhage though DAH was seen . Managed with every other week plasmapheresis since 2013, prednisone, cyclophosphamide, with TMP/SMZ prophylaxis. Diffuse alveolar hemorrhage Antiphopholipid syndrome: + lupus anticoagulant, + vivm-[id number], and + anti-cardiolipin antibodies DVT/PE 2013 IVC thrombosiis bilateral iliar stent jail warfarin Plasmapheresis HIT HFpEF PLAN FFP Follow up H/.H,INR Hold anticoagulation Hematology consultation C3 C4, dsDNA Sedate but may need to achieve full control of ventilation with low threshold for paralysis if she continues to desaturat Bronch with BAL. Do not feel this is feasible at this point (ET tune 7.0. hypoxemia FiO2 100%, PEEP 14 ). Strep Ag Sputum blood cultures Vancomycin/Piptazo Follow up ABG Follow up lactate Repeat ECHO Methylprednisolone 250 mgs twice daily Kit Castro MD [facility] STAFF PHYSICIAN NOTE OF PERSONAL INVOLVEMENT IN CARE I have reviewed the progress note obtained and documented by the fellow/resident/GENERATION MECHANIC HELPER/PA and I personally participated in the fernandes components. I have discussed the case and management of the patient's care. The previous comments revise or confirm relevant fernandes components of the note. This patient has a high probability of sudden, clinically significant deterioration, which requires the highest level of physician preparedness to intervene urgently. I managed/supervised life or organ supporting interventions that required frequent physician assessment. I devoted my full attention to the direct care of this patient for the amount of time indicated below. Time I spent with family or surrogate(s) is included only if the patient was incapable of providing the necessary information or participating in medical decision making. Time devoted to teaching and to any procedures I billed separately is not included. Critical Care Documentation: The patient has the following organ/system impairment(s): Complex life-threatening medical problem(s) and Respiratory failure (Acute, with Hypoxemia) Time spent providing critical care services: 50 minutes. SIGNATURE: Kit Castro MD [facility] P[facility]:[phone] Observed: 10/13/2017 Status: F Source: [place] BLOOD CULTURE 1:05 PM [facility] REPOSITORY Culture Result - No growth 5 days Performed By: #### BLCUL #### [facility] [address] [place], [place] [address] URINALYSIS WITH Collected: 10/13/2017 Status: F Source: [place] MICROSCOPIC 1:00 PM [facility] REPOSITORY TYPE CODE TESTS RESULT OUT OF RANGE REFERENCE UNITS LAB UCOL Yellow Color Abnormal Lisseth Alert LAB [facility] Clear Clarity Abnormal Cloudy Alert LAB UGLUC Negative mg/dL Glucose, Urine Negative LAB UBIL Negative Bilirubin, Urine Negative LAB UKET Negative Ketones, Urine Negative LAB USPG 1.005-1.030 Specific [place], Ur 1.024 LAB UHGB Negative Abnormal Hemoglobin/Blood, 2+ Alert Ur LAB UPH 4.5-8.0 pH 5.0 LAB UPROT Negative mg/dL Protein, Abnormal Urine >=300 Alert LAB UUROB Normal Urobilinogen Normal LAB UNITR Negative Nitrites Negative LAB ULKEST Negative Leukest Negative LAB UCOM Comments SEE COMMENT Result Comment: N/A LAB UMCOM Urine SEE Radha Comment COMMENT Result Comment: N/A LAB UWBC 0-5 /HPF WBC 0-5 LAB URBC 0-3 /HPF Abnormal RBC Alert >25 LAB UEPI /HPF Epithelial Cells SEE COMMENT Result Comment: Few Squamous Epithelial Cells Performed By: #### UAWMIC #### [facility] [address] [place], [place] [address] FIBRINOGEN Collected: 10/13/2017 Status: F Source: [place] 1:00 [facility] REPOSITORY TYPE CODE TESTS RESULT OUT OF REFERENCE UNITS RANGE LAB FIBCT 200-400 mg/dL Fibrinogen 283 Performed By: #### FIBCT, PT, PTT, LACT, CMP, MG1, PHOS, CBCDIF #### [facility] [address] [place], [place] [address] PROTIME Collected: 10/13/2017 Status: F Source: [place] 1:00 [facility] REPOSITORY TYPE CODE TESTS RESULT OUT OF RANGE REFERENCE UNITS LAB PSEC 9.7-13.0 sec High PT Sec 19.8 LAB INR 0.9-1.3 High PT INR 2.0 Result Comment: Vitamin K Antagonist (VKA) Therapeutic Range: INR 2 to 3 (Target INR of 2.5) Note: For patients treated with VKA drugs, such as warfarin, the [place] [employer] 2012 Guideline recommends a therapeutic INR range of 2 to 3 (target INR of 2.5). This recommendation includes high-risk patients with antiphospholipid syndrome with previous arterial or venous thromboembolism, current-generation mechanical or bioprosthetic aortic heart valve replacement. Note: Patients with mechanical aortic valve replacement and additional risk factors for thromboembolic events (atrial fibrillation, previous thromboembolism, LV dysfunction, hypercoagulable conditions) or an older generation mechanical AVR (i.e., ball in-Cage) or any mechanical MVR should have a INR therapeutic range of 2.5 to 3.5 (target INR of 3). Michael PLASENCIA, et al. Chest 2012, 141:7S-47S Diogenes RESENDIZ, et al. [facility] 2017, 70: 252-289 Performed By: #### FIBCT, PT, PTT, LACT, CMP, MG1, PHOS, CBCDIF #### [facility] [address] [place], [place] [address] APTT Collected: 10/13/2017 Status: F Source: [place] 1:00 [facility] REPOSITORY TYPE CODE TESTS RESULT OUT OF RANGE REFERENCE UNITS LAB APTT 23.0-32.4 sec APTT 30.3 Result Comment: Unfractionated Heparin Therapeutic Ranges: Standard Heparin Nomogram: 53 to 78 seconds (anti-Xa level of 0.3 to 0.7 U/ml) Low Dose/ACS Nomogram: 49 to 67 seconds (anti-Xa level of 0.2 to 0.5 U/ml) Stroke Treatment Nomogram: 49 to 67 seconds (anti-Xa level of 0.2 to 0.5 U/ml) Note: The APTT therapeutic range has been determined for the current lot of laboratory APTT reagent in use throughout the [facility]. Performed By: #### FIBCT, PT, PTT, LACT, CMP, MG1, PHOS, CBCDIF #### [address] [address] LACTATE Collected: 10/13/2017 Status: F Source: [place] 1:00 [facility] REPOSITORY TYPE CODE TESTS RESULT OUT OF REFERENCE UNITS RANGE LAB LACT 0.5-2.2 mmol/L Lactate 1.5 Performed By: #### FIBCT, PT, PTT, LACT, CMP, MG1, PHOS, CBCDIF #### [place] [id number] [place], [place] [address] COMP METABOLIC PANEL Collected: 10/13/2017 Status: F Source: [place] 1:00 [facility] REPOSITORY TYPE CODE TESTS RESULT OUT OF REFERENCE UNITS RANGE LAB TP 6.3-8.0 g/dL Low Protein, Total 5.1 LAB ALB 3.9-4.9 g/dL Low Albumin 3.4 LAB CA 8.5-10.2 mg/dL Low Calcium, Total 7.8 LAB TBIL 0.2-1.3 mg/dL Bilirubin, Total 0.6 LAB ALKP 32-117 U/L Alkaline Phosphatase 57 LAB AST 13-35 U/L AST 17 LAB GLU 74-99 mg/dL Low Glucose 48 Result Comment: The [place] [employer] Association (ADA) provides guidance for cutoff values for fasting glucose and random glucose. The ADA defines fasting as no caloric intake for at least 8 hours. Fas ting plasma glucose results between 100 to 125 mg/dL indicate increased risk for diabetes (prediabetes). Fasting plasma glucose results greater than or equal to 126 mg/dL meet the criteria for diagnosis of diabetes. In the absence of unequivocal hyperglycemia, results should be confirmed by repeat testing. In a patient with classic symptoms of hyperglycemia or hyperglycemic crisis, random plasma glucose results greater than or equal to 200 mg/dL meet the criteria for diagnosis of diabetes. Reference: Standards of Medical Care in Diabetes 2016, [place] [employer]. Diabetes Care. 2016.39(Suppl 1). Called to and read back by: Dieter [phone] 10/13/17 1444 [facility] LAB BUN 7-21 mg/dL BUN High 32 LAB CRET 0.58-0.96 mg/dL Creatinine High 1.22 LAB NA 136-144 mmol/L Sodium 142 LAB K 3.7-5.1 mmol/L Low Potassium 3.6 LAB CL 97-105 mmol/L Chloride 103 LAB CO2 22-30 mmol/L CO2 24 LAB AGAP 9-18 mmol/L Anion Gap 15 LAB ALT 7-38 U/L ALT 12 LAB GFRAA eGFR- Amer. >60 LAB GFRNAA . eGFR-All Other Races 52 Result Comment: eGFR (Estimated GFR) Units of measure: mL/min/1.73 meters squared eGFR is derived from the reexpressed MDRD Study equation using the following parameters: serum creatinine, age, gender and race. The creatinine assay has been calibrated to be traceable to IDMS. An eGFR <60 mL/min/1.73m2 for >3 months is consistent with chronic kidney disease. Refer to KDOQI guidelines for clinical interpretation. In patients with unstable renal function, e.g. those with acute kidney injury, the eGFR may not accurately reflect actual GFR. Performed By: #### FIBCT, PT, PTT, LACT, CMP, MG1, PHOS, CBCDIF #### [facility] [address] [place] [id number] MAGNESIUM Collected: 10/13/2017 Status: F Source: [place] 1:00 PM [facility] REPOSITORY TYPE CODE TESTS RESULT OUT OF REFERENCE UNITS RANGE LAB MG 1.7-2.3 mg/dL Magnesium 1.9 Performed By: #### FIBCT, PT, PTT, LACT, CMP, MG1, PHOS, CBCDIF #### [facility] [address] [place] [address] PHOSPHORUS Collected: 10/13/2017 Status: F Source: [place] 1:00 [facility] REPOSITORY TYPE CODE TESTS RESULT OUT OF REFERENCE UNITS RANGE LAB PHOS 2.7-4.8 mg/dL Phosphorus 4.2 Performed By: #### FIBCT, PT, PTT, LACT, CMP, MG1, PHOS, CBCDIF #### [facility] [address] [place] [address] CBC AND DIFFERENTIAL Collected: 10/13/2017 Status: F Source: [place] 1:00 [facility] REPOSITORY TYPE CODE TESTS RESULT OUT OF REFERENCE UNITS RANGE LAB WBC 3.70-11.00 k/uL WBC High 11.79 LAB RBC 3.90-5.20 m/uL Low RBC 2.97 LAB HGB 11.5-15.5 g/dL Low Hemoglobin 8.4 LAB HCT 36.0-46.0 % Low Hematocrit 27.6 LAB MCV 80.0-100.0 fL MCV 92.9 LAB MCH 26.0-34.0 pG MCH 28.3 LAB MCHC 30.5-36.0 g/dL Low MCHC 30.4 LAB RDWCV 11.5-15.0 % RDW-CV High 20.7 LAB PLTCT 150-400 k/uL Low Platelet Count 73 Result Comment: Result checked and verified No clot detected. LAB MPV 9.0-12.7 fL MPV <<DO NOT REPORT>> LAB ANEUT % Neut% 92.2 LAB AANEUT 1.45-7.50 k/uL Abs Neut 10.87 High LAB ALYMP % Lymph% 2.6 LAB AALYMP 1.00-4.00 k/uL Abs Lymph 0.31 Low LAB AMONO % [place]% 1.7 LAB AAMONO <0.87 k/uL Abs [place] 0.20 LAB AEOS % Eosin% 2.6 LAB AAEOS <0.46 k/uL Abs Eosin 0.31 LAB ABASO % Baso% 0.0 LAB AABASO <0.11 k/uL Abs Baso 0.00 LAB AMYELO % Myelo% 0.9 LAB ANIIMI Anisocytosis Present LAB LFTIMI Left Shift Present LAB OVAIMI Ovalocytes Few LAB POLIMI Polychromasia Slight LAB RCFIMI RBC Fragments Moderate LAB TEAIMI Tear Drop Cells Few LAB PLTEST Platelet Estimate Platelet estimate decreased LAB DTYP DTYPE Manual Diff Performed By: #### FIBCT, PT, PTT, LACT, CMP, MG1, PHOS, CBCDIF #### [place] [address] TYPE AND SCREEN Collected: 10/13/2017 Status: F Source: [place] 1:00 PM [facility] REPOSITORY TYPE CODE TESTS RESULT OUT OF REFERENCE UNITS RANGE LAB %ABR B ABO/RH(D) POSITIVE LAB % Antibody POS Screen Performed By: #### TSCR #### [facility] [address] [place] [address] STAPH AUREUS PCR Collected: 10/13/2017 Status: F Source: [place] 1:00 PM [facility] REPOSITORY TYPE CODE TESTS RESULT OUT OF REFERENCE UNITS RANGE LAB SASRC Nasal S aureus Spec Source LAB MRSRES Negative for MRSA MRSA by PCR. PCR LAB SARES Negative for Staph Staphylococcus aureus PCR aureus by PCR. Performed By: #### SAPCR #### [place] [address] PROGRESS Observed: 10/13/2017 Status: COMPLETED Source: [place] 12:56 PM [facility] REPOSITORY HNO ID: [id number] Author: Domingo (Elliott) Reza Service: (none) Author Type: Nurse Practitioner Type: Progress Notes Filed: 10/13/2017 1:16 PM Note Text: Critical Care Transport Note Patient Name: Paloma Cannon Service Date: October 13, 2017 Referring Facility: [facility] Accepting Facility: [place] [address] SUBJECTIVE/CHIEF COMPLAINT: Shortness of breath REASON FOR TRANSPORT: Higher level critical care services unavailable at sending facility History of Present Illness: The following history is what was known to CCT team at time of given care and summarized through review of available medical records, patient/family interview and from referring physician and nursing report. Paloma Cannon is a 27 year old female with a past medical history significant for CHF, Anemia, Anasarca, Anemia, Antiphospholipid syndrome s/p DVT on coumadin, HTN, HIT. She presented to [facility] on 10/13 for evaluation of shortness of breath. Patient received plasmapheresis a few weeks ago and was supposed to have another treatment on 10/09 but missed her appointment. Today patient developed cough which turned in to inability to catch her breath. Patient was brought to [place] ER where she was tripoding in respiratory distress with SPO2 in 80s. Patient was emergently intubated using etomidate/succ and placed on mechanical ventilation. Patient was reported to be difficult to sedate and is requiring high dose propofol. Patient was supposed to be started on vancomycin and zosyn but patient had minimal access and refused zosyn as he reported allergy to it. At this time, the physician managing the patient requested transfer to the [facility] for tertiary and/or quaternary services unavailable at the referring facility. The physician managing the patient requested the [facility] Critical Care Transport Team transport and treat the patient for the purpose of tertiary care, evaluation, and management of her medical condition(s). Patient condition at time of exam was: critically ill. Due to the unique circumstances of the patient, it was determined that this was the closest, most appropriate facility by referring physician. REVIEW OF SYSTEMS: Unable to obtain d/t intubation PAST MEDICAL HISTORY: PAST MEDICAL HISTORY Diagnosis Date - (HFpEF) heart failure with preserved ejection fraction (HCC) 02/20/2016 HFpEF w last EF 50-55% On Torsemide, coreg, hydralazine and imdur at home No signs of acute exacerbation on admission Plan: -Continue home medications - Anasarca 11/29/2013 - Anemia 03/10/2015 Chronic microcytic anemia. 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 Thrombosis, and Diffuse Alveolar Hemorrhage. On Warfarin and PLEX (Twice Weekly)? Plan: -Warfarin 5mg qday-holding for planned EGD on 01/11 d/t supra therapeutic INR -Cont. PO Prednisone 10mg MWFS and 5mg TTS -Pantoprazole for GI PPx of Above -Apharesis was supposed to be yesterday, will contact plasmapheresis team on recommendations - Antiphospholipid syndrome (HCC) - Catastrophic Antiphospholipid antibody syndrome 11/09/2013 - Cholelithiasis 01/11/2017 Likely cause of recent pancreatitis. Plan: Per general surgery, no acute surgical intervention at this time. Will await results of EGD. If active gastritis, favor outpatient cholecystectomy. If no active gastritis on EGD, plan for cholecystectomy this admission. - CKD (chronic kidney disease) stage 3, GFR 30-59 ml/min 07/06/2016 Baseline SCr 1.5-1.7 Plan: -renally dose medications -avoid nephrotoxic agents - DVT (deep venous thrombosis) (HCC) - Elevated CA-125 11/30/2013 244 - Essential hypertension 10/08/2015 Stable on home medications Plan: -continue to monitor on home meds - 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 Bivalirudin to Warfarin bridging - HIT (heparin-induced thrombocytopenia) ([facility]) - Nontoxic multinodular goiter - Obese - Obesity, Class III, BMI >= 40 (morbid obesity) E66.01 10/18/2016 - Peripheral neuropathy 04/14/2016 - Severe protein-calorie malnutrition (HCC) 12/29/2015 PAST SURGICAL HISTORY: PAST SURGICAL HISTORY Procedure Laterality Date - PAST SURGICAL HISTORY OF 2012 IVC thrombectomy - PAST SURGICAL HISTORY OF 2012 b/l iliac v. 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 - PAST SURGICAL HISTORY OF Adenoidectomy - PICC LINE INSERT/CONSULT 11/29/2013 - PICC LINE INSERT/CONSULT 03/10/2015 - PICC LINE INSERT/CONSULT 02/20/2016 ALLERGIES: Rhubarb; Heparin; Iv Contrast [Iodine]; Rituximab SOCIAL HISTORY: Social History Substance Use Topics - Smoking status: Never Smoker - Smokeless tobacco: Never Used - Alcohol use No FAMILY HISTORY: FAMILY HISTORY Problem Relation Age of Onset - Breast Cancer Mother spine BRCA neg - Ovarian cyst [OTHER] Mother - ovarian cyst [OTHER] Sister - Thyroid No Family History HOME MEDICATIONS: gabapentin (NEURONTIN) 100 mg capsule Take 400mg in the morning Take 300 mg in the afternoon Take 300mg in the evening Patient may change dose based on pain COMPOUNDED PRESCRIPTION Home oxygen at 2 litres nc continuous , 3 litres with exertion , via oxygen concentrator with portable oxygen tanks , conserving device for ambulation , titrated to comfort fondaparinux (ARIXTRA) 2.5 mg/0.5 mL syrg Inject 2.5 mg subcutaneously q 24 HR. Short term medication to cover while warfarin was on hold torsemide (DEMADEX) 20 mg tablet Take 20 mg by mouth once daily as needed (takes 20-60 mg as needed for chronic edema). ondansetron (ZOFRAN, HYDROCHLORIDE,) 8 mg tablet Take 1 tablet by mouth every 12 hours as needed for Nausea/Vomiting. COMPOUNDED PRESCRIPTION O2 Condenser- whichever is covered by patient's insurance Acute on chronic respiratory failure with hypoxia (HCC) ?- Primary J96.21Pulmonary HTN I27.20SIRS (systemic inflammatory response syndrome) (HCC) R65.10 cyclophosphamide (CYTOXAN) 50 mg capsule Take 3 capsules by mouth once daily. predniSONE (DELTASONE) 5 mg tablet Take 1 tablet by mouth once daily. warfarin (COUMADIN) 2.5 mg tablet take by mouth as directed in the evening to keep INR between 2.0-3.0 amLODIPine (NORVASC) 5 mg tablet Take 2 tablets by mouth once daily. HOLD FOR SBP <120 sulfamethoxazole-trimethoprim (BACTRIM DS) 800-160 mg per tablet Take 1 tablet by mouth every Monday,Monday,Monday. fluticasone (FLONASE) 50 mcg/actuation nasal spray Use 1-2 Sprays in each nostril once daily as needed for Cold/Allergy Symptoms (starting in allergy season). pantoprazole DR (PROTONIX) 40 mg tablet Take 1 tablet by mouth DAILY (6 AM). cetirizine 10 mg tablet Take 1 tablet by mouth once daily. senna 8.6 mg tab Take 1 tablet by mouth twice daily as needed. Medications Administered by Referring Facility: Etomidate Succinylcholine Propofoll @ 50 mcg/kg/min OBJECTIVE: Recent Labs, Diagnostics AND Procedure Reports by OSH reviewed as available CBC: WBC- 17 HGB- 10 Coags: INR- 2.1 Chemistry: NA- 140 K+- 5 CL -104 CO2- 18 BUN- 18 Cr- 1.32 Glucose- 194 Other Pertinent Labs: Lactate 12/4 ABG 7.13/56/86/19 Diagnostics AND Procedure Reports ECG: normal sinus rhythm Chest X-Ray : bilateral diffuse airspace disease suggestive of pulmonary edema vs alveolar hemorrhage CT : NA Invasive Lines/Devices/Tubes Placed by Referring Facility: Endotracheal intubation PHYSICAL EXAM: Upon CCT Arrival at Referring Facility Vital Signs: HR 89bpm, BP 158/89mmHg, RR 30, SpO2 100% Oxygen/Ventilator Settings: AC 14 400 100% +14 General appearance: acutely ill. HEENT: normocephalic, PERRL. Oropharynx clear, no plaques or exudates,Posterior Oropharynx symmetric,Mucous membranes moist Respiratory: clear to auscultation bilaterally,no respiratory distress,no rales,no rhonchi,no wheezing. Cardiovascular: no murmurs, no rubs, no gallops, regular rate and rhythm, peripheral pulses symmetric. Gastrointestinal: soft, nontender, nondistended. Genitourinary: Zuniga with lisseth urine Musculoskeletal: positive peripheral edema 2+ Skin: open sore to RLE. Heme/Lymph: No abnormal bleeding Neurologic: Intubated, sedated, follows commands when stimulated CRITICAL CARE COURSE Upon bedside arrival at referring facility the patient was assessed and detailed physical exam performed and noted above. The patient was placed on the transport monitor and all transport equipment transitioned in standard fashion. The patient was transferred to the transport cot and transported to the Aircraft and loaded without incident. The patient was medically managed, monitored, and reassessed during transport. Medications Managed AND Administered by CCT: Propofol continued @ 50 mcg/kg/min Procedures Performed by CCT: none ASSESSMENT/PLAN: Acute Respiratory Failure Alveolar Hemorrhage Coagulopathy - presented in acute distress, emergently intubated, CXR + for bilateral airspace disease - will maintain current vent settings, adjust as tolerated to maintain PIP < 30, SPO2 > 92% and ETCO2 40 - maintain propofol infusion for sedation - attempt additional access to start vancomycin infusion - expedite transfer to [facility] for plasmapharesis The transport was completed without significant incident or change in the patient's status . The patient was transported to the the [facility] by Rotor (Helicopter) for tertiary and/or quaternary evaluation and management of her Critical Medical condition(s). Upon arrival to the receiving facility, a elua-zw-[id number] report was given to bedside staff in G61. Patient care was transferred. The patient condition was Critical at the time of transfer Vital Signs at time care transferred to the receiving facility unit: HR 103bpm, BP 111/75 mmHg, RR 24, SpO2 100% ETCO2 40 PIP23 on AC 14 400 100% =14 SPECIAL EQUIPMENT: None MODE OF TRANSPORT: Rotor (Helicopter) CRITICAL CARE TIME:I personally performed 45 minutes of critical care time exclusive of separately billable procedures, ambulance charges and treating other patients. This was necessary to treat or prevent further deterioration of the following condition(s): Acute respiratory failure Respiratory impairment which the patient had and/or had a high probability of suddenly developing. SIGNATURE: Domingo Cobb, MSN AMALGAMATOR.DIRECTOR OF HOTEL Acute Care Nurse Practitioner [facility] Critical Care Transport Team CONSULT PROG Observed: 10/13/2017 Status: COMPLETED Source: [place] 12:54 PM [facility] REPOSITORY [facility] ID: [id number] Author: Lou Joya (Pharmacist) Service: Pharmacy Author Type: Pharmacist Type: Consult Progress Note Filed: 10/13/2017 12:55 PM Note Text: PHARMACY VANCOMYCIN DOSING NOTE Patient Name: Paloma Cannon Admission Date: 10/13/2017 Date of Consult: 10/13/2017 Time of Consult: 12:54 PM Indication: Pneumonia Goal Range: 15-25 mcg/mL RECOMMENDATIONS/PLAN: Pharmacy consulted for vancomycin dosing for Paloma Cannon, a 27 year old, female who is being treated with vancomycin for pneumonia 1. Patient is currently ordered Vancomycin 1.5 g IV q24h. Today is day 1 of therapy. 2. No vancomycin level has been drawn for this dosing regimen. 3. Based on prevoius courses of vancomycin and current renal function, will schedule vancomycin 1.5 g with a dosing interval of q18h 4. The next vancomycin level will be ordered prior to the 5th dose unless clinically indicated sooner. (Pharmacy will order) We will follow patient renal function, vancomycin levels and doses with you during the course of therapy. Additional recommendations will appear in follow up notes. If you have any questions, please contact Lou Joya PharmD at pager [phone]. Age: [age] year old Allergies: ALLERGIES Allergen Reactions - Rhubarb Rash, Hives - Heparin Other: See Comments Per patient history of HIT - was on angiomax however then took l fondaparinux for bridging to coumadin. - Iv Contrast [Iodine] Other: See Comments shuts kidneys down per patient - Rituximab Other: See Comments Elevated cardiac enzymes Last 3 Encounter Wt Readings: Date: Wt: 10/13/2017 104 kg (229 lb 4.5 oz) 09/29/2017 101.4 kg (223 lb 8 oz) 09/27/2017 96.6 kg (213 lb) Last 1 Encounter Ht Readings: Date: Ht: 10/13/2017 160 cm (5' 3) CrCl: 75.4 mL/min Temp (24hrs), Av.1 ?C (98.8 ?F), Min:37.1 ?C (98.8 ?F), Max:37.1 ?C (98.8 ?F) - Current Temp: 37.1 ?C (98.8 ?F) Labs BUN (mg/dL) Date Value 10/05/2017 41 (H) 10/04/2017 35 (H) 10/03/2017 28 (H) Creatinine (mg/dL) Date Value 10/05/2017 1.28 (H) 10/04/2017 1.29 (H) 10/03/2017 1.17 (H) WBC (k/uL) Date Value 10/05/2017 5.04 10/04/2017 5.41 10/03/2017 6.38 Vancomycin Levels: Vancomycin, result (ug/mL) Date/Time Value 08/28/2017 0428 29.9 (H) 03/19/2017 0826 23.9 (H) LOU JOYA PHARMACIST Observed: 10/13/2017 Status: F Source: [place] BLOOD CULTURE 12:40 PM [facility] REPOSITORY Culture Result - No growth 5 days Performed By: #### BLCUL #### [facility] [address] [place] [id number] HISTORY PHYSICAL Observed: 10/13/2017 Status: COMPLETED Source: [place] 11:48 AM [facility] REPOSITORY HNO ID: [id number] Author: Hollis Oro Service: Critical Care Author Type: Resident Type: HANDP Filed: 10/13/2017 1:23 PM Note Text: [facility] MICU/CRITICAL CARE HISTORY AND PHYSICAL EXAMINATION NOTE SERVICE DATE: 10/13/2017 SERVICE TIME: 1:00 pm ASSESSMENT AND PLAN: Patient Summary: 27 y/o female with hx of anti-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 endograft, on intermediate card tender AC with warfarin, plasmapharesis q2 weeks, prednisone 5 mg qD), 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 ? Major Interval Events: 10/13: Admitted to MICU. Intubated. Assessment and Plan: Neuro: Sedated Plan: - Wean off sedation as tolerated Peripheral neuropathy: Plan: - Gabapentin Pulmonary: Acute hypoxic respiratory failure due to pulmonary hemorrhage: - Likely alveolar hemorrhage - Hx of DAH - Intubated 10/13 Plan: - Bronchoscopy - Monitor CBC/INR - Hold all anticoagulations - Monitor ABGs - Resume home cyclophosphamide? - Vancomycin/Zosyn for possible infection Cardiovascular: HFpEF: LVEF ~ 50% Plan: - Hold diuretics in the setting of bleeding HTN: Plan: - Hold amlodipine due to bleeding GI:No active issues. Renal: CKD (baseline Cr ~ 1.1-1.3): - Cr 1.32 upon presentation Plan: - Monitor BUN/Cr - IV fluid resuscitation PRN Hematology: - hx of anti-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 endograft, on senior living AC with warfarin, plasmapharesis q2 weeks, prednisone 5 mg qD) - Last plasmapharesis 10/05/17: was due for repeat on 10/16 Plan: - Consult hematology - Hold AC in the setting of alveolar hemorrhage - Continue prednisone? 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 Presented to [facility] ED with hemoptysis/SOB - found to be in increased work of breathing and low sats - was intubated (10/13/17). Initial labs: Hgb 10.1, WBC 17, INR 2.1 (last dose of Warfarin 5 mg on 10/12/17 evening), Cr 1.32, K 5.0, Bicarb 18, AG 18, Lactate 12.4. Initial ABG on 100% FiO2/PEEP 14: 7.29, 44,79. Upon arrival to F MICU, she is normotensive, HR ~ low 100s. PAST MEDICAL HISTORY: SEE CHRONIC ISSSUES: PAST MEDICAL HISTORY Diagnosis Date - (HFpEF) heart failure with preserved ejection fraction (HCC) 02/20/2016 HFpEF w last EF 50-55% On Torsemide, coreg, hydralazine and imdur at home No signs of acute exacerbation on admission Plan: -Continue home medications - Anasarca 11/29/2013 - Anemia 03/10/2015 Chronic microcytic anemia. 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 Thrombosis, and Diffuse Alveolar Hemorrhage. On Warfarin and PLEX (Twice Weekly)? Plan: -Warfarin 5mg qday-holding for planned EGD on 01/11 d/t supra therapeutic INR -Cont. PO Prednisone 10mg MWFS and 5mg TTS -Pantoprazole for GI PPx of Above -Apharesis was supposed to be yesterday, will contact plasmapheresis team on recommendations - Antiphospholipid syndrome (HCC) - Catastrophic Antiphospholipid antibody syndrome 11/09/2013 - Cholelithiasis 01/11/2017 Likely cause of recent pancreatitis. Plan: Per general surgery, no acute surgical intervention at this time. Will await results of EGD. If active gastritis, favor outpatient cholecystectomy. If no active gastritis on EGD, plan for cholecystectomy this admission. - CKD (chronic kidney disease) stage 3, GFR 30-59 ml/min 07/06/2016 Baseline SCr 1.5-1.7 Plan: -renally dose medications -avoid nephrotoxic agents - DVT (deep venous thrombosis) (HCC) - Elevated CA-125 11/30/2013 244 - Essential hypertension 10/08/2015 Stable on home medications Plan: -continue to monitor on home meds - 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 Bivalirudin to Warfarin bridging - HIT (heparin-induced thrombocytopenia) (HCC) - Nontoxic multinodular goiter - Obese - Obesity, Class III, BMI >= 40 (morbid obesity) E66.01 10/18/2016 - Peripheral neuropathy 04/14/2016 - Severe protein-calorie malnutrition (HCC) 12/29/2015 PAST SURGICAL HISTORY: PAST SURGICAL HISTORY Procedure Laterality Date - PAST SURGICAL HISTORY OF 2012 IVC thrombectomy - PAST SURGICAL HISTORY OF 2012 b/l iliac v. 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 HOME MEDICATIONS: gabapentin (NEURONTIN) 100 mg capsule Take 400mg in the morning Take 300 mg in the afternoon Take 300mg in the evening Patient may change dose based on pain COMPOUNDED PRESCRIPTION Home oxygen at 2 litres nc continuous , 3 litres with exertion , via oxygen concentrator with portable oxygen tanks , conserving device for ambulation , titrated to comfort fondaparinux (ARIXTRA) 2.5 mg/0.5 mL syrg Inject 2.5 mg subcutaneously q 24 HR. Short term medication to cover while warfarin was on hold torsemide (DEMADEX) 20 mg tablet Take 20 mg by mouth once daily as needed (takes 20-60 mg as needed for chronic edema). ondansetron (ZOFRAN, HYDROCHLORIDE,) 8 mg tablet Take 1 tablet by mouth every 12 hours as needed for Nausea/Vomiting. COMPOUNDED PRESCRIPTION O2 Condenser- whichever is covered by patient's insurance Acute on chronic respiratory failure with hypoxia (HCC) ?- Primary J96.21Pulmonary HTN I27.20SIRS (systemic inflammatory response syndrome) (HCC) R65.10 cyclophosphamide (CYTOXAN) 50 mg capsule Take 3 capsules by mouth once daily. predniSONE (DELTASONE) 5 mg tablet Take 1 tablet by mouth once daily. warfarin (COUMADIN) 2.5 mg tablet take by mouth as directed in the evening to keep INR between 2.0-3.0 amLODIPine (NORVASC) 5 mg tablet Take 2 tablets by mouth once daily. HOLD FOR SBP <120 sulfamethoxazole-trimethoprim (BACTRIM DS) 800-160 mg per tablet Take 1 tablet by mouth every Monday,Monday,Monday. fluticasone (FLONASE) 50 mcg/actuation nasal spray Use 1-2 Sprays in each nostril once daily as needed for Cold/Allergy Symptoms (starting in allergy season). pantoprazole DR (PROTONIX) 40 mg tablet Take 1 tablet by mouth DAILY (6 AM). cetirizine 10 mg tablet Take 1 tablet by mouth once daily. senna 8.6 mg tab Take 1 tablet by mouth twice daily as needed. INPATIENT MEDICATIONS: Current hospital medications: sulfamethoxazole-trimethoprim 800-160 mg 1 tablet (BACTRIM DS,SEPTRA DS) 1 tablet ORAL potassium chloride ER 40 mEq tab(s) (K-DUR, KLOR-CON) 40 mEq ORAL/FEEDING TUBE q 2 H PRN magnesium sulfate in water 4-6 g in sterile water 50 ml 4- 6 g INTRAVENOUS PRN sodium phosphate 45 mmol in NaCl 0.9% 250 mL 45 mmol INTRAVENOUS PRN insulin regular human injection (short acting) (NovoLIN R,HumuLIN R) SUBCUTANEOUS q 6 H insulin regular 250 units in NaCl 0.9% 250 mL iv infusion - ICU NOMOGRAM 0.5-30 Units/hr INTRAVENOUS CONTINUOUS insulin regular human iv bolus 2-10 Units 2-10 Units INTRAVENOUS PRN dextrose 50% in water 25-50 mL syringe 12.5-25 g INTRAVENOUS PRN dextrose 40 % 15 g 15 g ORAL PRN glucagon 1 mg injection (GLUCAGEN) 1 mg SUBCUTANEOUS PRN [START ON 10/14/2017] pantoprazole 40 mg injection (PROTONIX) 40 mg INTRAVENOUS DAILY (6 AM) fentaNYL 50 mcg/mL 50-100 mcg injection (SUBLIMAZE) 50-100 mcg INTRAVENOUS q 15 MIN PRN fentaNYL 20 mcg/mL iv infusion in NaCl 0.9% 100 mL 50-250 mcg/hr INTRAVENOUS CONTINUOUS propofol iv bolus 20 mg (DIPRIVAN) 20 mg INTRAVENOUS q 30 MIN PRN propofol infusion (DIPRIVAN) 5-60 mcg/kg/min INTRAVENOUS CONTINUOUS Chlorhexidine Gluconate 0.12 % 15 mL (PERIDEX) 15 mL ORAL QID piperacillin-tazobactam 3.375 g in dextrose (iso-osmotic) 50 mL (ZOSYN) 3.375 g INTRAVENOUS q 6 H vancomycin dosing and monitoring per pharmacy OTHER As Directed vancomycin 1.5 g in D5W 250 mL (VANCOCIN) 0.015 g/kg/dose INTRAVENOUS q 18 HR PHYSICAL EXAM: VITAL SIGNS 10/13/17 1200 Temp: 37.1 ?C (98.8 ?F) TempSrc: Axillary Weight: 104 kg (229 lb 4.5 oz) Height: 160 cm (5' 3) Temp (24hrs), Avg:-17.8 ?C (0 ?F), Min:, Max: INTAKE/OUTPUT No intake or output data in the 24 hours ending 10/13/17 1323 INDWELLING CATHETERS: Zuniga Catheter: Yes Other Lines/Drains: PIVs HEENT: Oral Mucosa: Moist mucous membranes Feeding Tube: Yes. Nasogastric tube Eyes: Sclera non-icterus Neck: Unremarkable; No adenopathy or JVD Cardiovascular: Regular rhythm Respiratory: Reduced breath sounds bilat Abdomen: Soft Extremities: Edema- Yes Peripheral Pulses- Present all extremities Skin: Abnormalities- Yes Breakdown- Yes. Site: RLE POA: Yes Neurologic: Follows commands and Sedated DATA: Diagnostic tests reviewed for today's visit: CBC, Coags, BMP, Mg, Phos Liver Function, Amylase, AND Lipase ABGs PATIENT CHECKLIST ? Are restraints necessary: Yes. Order written? Yes ? Deep vein thrombosis prophylaxis administered? No. Contraindicated: bleeding. ? Stress ulcer prophylaxis? Yes ? Nasogastric tube? Yes ? Zuniga catheter necessary? Yes ? Is central line essential? Yes ? Plan discussed with assigned RN? Yes ? Family updated within last 24 hours? Yes SIGNATURE: Hollis Oro DO PATIENT NAME: Paloma Cannon DATE: October 13, 2017 TIME: 11:48 AM PAGER/CONTACT #: [phone] BLOOD GASES BY CPS Collected: 10/13/2017 Status: F Source: [place] 10:56 AM [facility] REPOSITORY TYPE CODE TESTS RESULT OUT OF RANGE REFERENCE UNITS LAB L9000.9990 Normal BLD GAS TYPE ART LAB L9001.1000 Normal SITE R Radial LAB L9001.1010 Normal KALA TEST NA LAB L9001.1048 Normal Mode A-C LAB L9001.1050 O2 Normal Delivery Dev Vent LAB L9001.1065 Vt Normal 400 LAB L9001.1070 RR Normal 16 LAB L9001.1074 Normal FI02 100 LAB L9001.1076 Normal PEEP 14 LAB L9001.1104 Normal Results To ED LAB L9001.1105 Normal Time Given 1055 LAB L9001.1110 7.35-7.45 Low pH - I-STAT 7.29 LAB L9001.1210 35-45 mmHg Normal pCO2 - ISTAT 44.7 LAB L9001.1310 75-100 mmHG Normal PO2 I-STAT 79 LAB L9001.2300 22-26 mmol/L Low HCO3 ISTAT 21.4 LAB L9001.2400 -2 to +2 mmol/L Low BE ISTAT -5 LAB L9001.2415 mmol/L Normal TOTAL CO2 23 ISTAT LAB L9001.2425 95-99 % Low SO2 ISTAT 94 Performed By: #### L9000.0800 #### [facility] Point of Care [address] [place] [address] Observed: 10/13/2017 Status: F Source: [place] CULTURE, SPUTUM 10:48 AM [facility] REPOSITORY Gram Stain Acceptable Specimen? Yes (<25 Epithelial cells per/lpf) Gram Stain 1+ White Blood Cells 1+ Epithelial cells Rare Gram positive cocci Resp. Culture Mixed normal respiratory zoila. No Haemophilus, Streptococcus pneumoniae, beta-hemolytic Streptococcus or Staphylococcus aureus isolated. Performed By: #### M100.0800 #### [facility] [address] [place], [address] URINALYSIS, COMPLETE Collected: 10/13/2017 Status: F Source: [place] 10:30 AM [facility] REPOSITORY Order Comment: How was Urine Obtained? CATHETER SPECIMEN TYPE CODE TESTS RESULT OUT OF RANGE REFERENCE UNITS LAB L400.3000 Yellow COLOR Normal Yellow LAB L400.3050 Clear Normal CLARITY Cloudy LAB L400.3200 Normal mg/dl Normal GLUCOSE, UR Normal LAB L400.3300 Negative mg/dL Normal BILIRUBIN URINE Negative LAB L400.3400 Negative mg/dl High 5 KETONE UR LAB L400.3465 1.002-1.030 Normal SP.GR. DIPSTX 1.020 LAB L400.3550 5.0 - 8.0 pH UR Normal 6.0 LAB L400.3600 Negative mg/dl High PROT DIPSTX 500 LAB L400.3700 Normal mg/dl High 1 UROBILI LAB L400.3750 Negative Normal NITRITE UR Negative LAB L400.3780 Negative /ul High OCCULT BLOOD-UR 250 LAB L400.3800 Negative /ul High LEUK 25 ESTERASE LAB L400.4050 0-5 /hpf WBC Normal 0-5 SEEN LAB L400.4100 0-5 /hpf Normal RBC-UA 10-25 SEEN LAB L400.4150 5-10 /hpf SQUAM Normal EPI 0-5 SEEN LAB L400.4300 None Seen /hpf 1+ Normal BACTERIA LAB L400.4350 <or=2+ /hpf 0 Normal MUCUS, URINE SEEN Performed By: #### L400.0001 #### [facility] [address] [place], [address] Observed: 10/13/2017 Status: F Source: [place] CULTURE, URINE 10:30 AM [facility] REPOSITORY Urine Culture ORGANISM 1: Enterococcus faecalis Florien Count <1000 Enterococcus faecalis: REACTION Ampicillin $ <=2 S Benzylpenicillin NF 2 S Ciprofloxacin $ 4 R Gentamicin SYN-R R Levofloxacin $ >=8 R Linezolid $$$$ 2 S Nitrofurantoin $ <=16 S Streptomycin $ SYN-R R Tetracycline NF >=16 R Vancomycin $ 1 S (NF) indicates non-formulary drug at [facility]. Approval by Infectious Disease Specialist required before non-formulary drugs may be ordered and/or dispensed. * CLSI guidelines does not recommend testing of cephalosporins. This interpretation is deduced from Beta-lactam/penicillin results. Performed By: #### M100.0650 #### [facility] [address] [place], [address] BLOOD GASES BY CPS Collected: 10/13/2017 Status: F Source: [place] 10:28 AM [facility] REPOSITORY TYPE CODE TESTS RESULT OUT OF RANGE REFERENCE UNITS LAB L9000.9990 Normal BLD GAS TYPE ART LAB L9001.1000 Normal SITE R Radial LAB L9001.1010 Normal KALA TEST POS LAB L9001.1048 Normal Mode A-C LAB L9001.1050 O2 Normal Delivery Dev Vent LAB L9001.1060 MV Normal 14.00 LAB L9001.1065 Vt Normal 450 LAB L9001.1070 RR Normal 14 LAB L9001.1074 Normal FI02 100 LAB L9001.1076 Normal PEEP 10 LAB L9001.1104 Normal Results To ED LAB L9001.1105 Normal Time Given 1020 LAB L9001.1110 7.35-7.45 Low pH alert - I-STAT 7.13 LAB L9001.1210 35-45 mmHg High pCO2 - ISTAT 56.9 LAB L9001.1310 75-100 mmHG Low PO2 I-STAT 66 LAB L9001.2300 22-26 mmol/L Low HCO3 ISTAT 19.1 LAB L9001.2400 -2 to +2 mmol/L Low BE ISTAT -10 LAB L9001.2415 mmol/L Normal TOTAL CO2 21 ISTAT LAB L9001.2425 95-99 % Low SO2 ISTAT 85 Performed By: #### L9000.0800 #### [facility] Point of Care [address] [place], [place] [address] Observed: 10/13/2017 Status: F Source: [place] CULTURE, BLOOD (WB) 10:22 AM [facility] REPOSITORY BC No growth in 5 days. Performed By: #### M200.1000 #### [facility] [address] [place], [place], [address] Observed: 10/13/2017 Status: F Source: [place] CULTURE, BLOOD (WB) 10:15 AM [facility] REPOSITORY BC No growth in 5 days. Performed By: #### M200.1000 #### [facility] [address] [place], [place], [address] CHEST 1 VIEW Observed: 10/13/2017 Status: F Source: [place] (PORTABLE) 9:59 AM [facility] REPOSITORY [facility] Imaging Services [address] [place] [address] Chest 1 View (Portable) MR#: [id number] Acct: [id number] Name: PALOMA CANNON Rep #: [id number] : 1990 F 27 From: Reinaldo Kam MD PCP: Peyton Rogers MD Status: REG ER Study: Chest 1 View (Portable) Date of Exam: 10/13/17 Exam# [id number] Ordering Dr: Lydia Harley MD STUDY: X-RAY CHEST REASON FOR EXAM: Female, 27 years old. Shortness of breath. History of a alveolar hemorrhage. TECHNIQUE: Single AP portable view of the chest. COMPARISON: Comparison is made with prior study dated April 01, 2017. FINDINGS: An endotracheal tube is in situ. The tip is at 3.6 cm proximal to the remy. A nasogastric tube is seen with the tip below the left hemidiaphragm. A left-sided dual-chamber dialysis catheter is seen. The tip is at the junction of the superior vena cava and right atrium. There is evidence of bilateral diffuse airspace disease suggestive of pulmonary edema. With the patient's history of alveolar hemorrhage, this may represent pulmonary hemorrhage. There is no demonstrated pleural abnormality. Normal size heart. Normal mediastinum and eric. Normal visualized pulmonary arteries. Normal visualized aortic arch and descending thoracic aorta. Normal visualized thoracic spine. Normal visualized ribs, clavicles, and shoulders. There is no demonstrated abnormality of the visualized soft tissue structures of the upper abdomen. RAD/Chest 1 View (Portable) IMPRESSION: Support tubes are in good position. Bilateral diffuse airspace disease. Electronically Signed: Reinaldo Kam MD at 10:24 EDT Tel [phone], Service support , CC: Peyton Rogers MD; Lydia Harley MD Practice Support Specialist: Signed PROTHROMBIN TIME W/INR Collected: 10/13/2017 Status: F Source: [place] 9:35 AM [facility] REPOSITORY TYPE CODE TESTS RESULT OUT OF RANGE REFERENCE UNITS LAB L300.4150 11.7-14.9 SECONDS High PROTIME 23.7 LAB L300.4200 Normal INR 2.1 Performed By: #### L300.3900, L300.4310 #### [facility] [address] [place], [place], [id number] PARTIAL THROMBOPLAST Collected: 10/13/2017 Status: F Source: [place] TIME 9:35 AM [facility] REPOSITORY TYPE CODE TESTS RESULT OUT OF RANGE REFERENCE UNITS LAB L300.4310 24.1-36.2 Seconds Normal PTT 34.9 Performed By: #### L300.3900, L300.4310 #### [facility] [address] [place], [place], [id number] COMPREHENSIVE METABOLIC Collected: 10/13/2017 Status: F Source: [place] NOVAK 9:35 AM [facility] REPOSITORY Order Comment: 'TROP' Serial specimen #1, #2, #3, or #4: 1 TYPE CODE TESTS RESULT OUT OF RANGE REFERENCE UNITS LAB L501.0100 74-106 mg/dL High GLU 194 Result Comment: Fasting Glucose result greater than or equal to 126 mg/dL suggests DIABETES MELLITUS per A.D.A. criteria. Please note revised GLUCOSE reference range effective 2017. LAB L501.1000 7-18 mg/dL High BUN 33 LAB L501.1100 0.55-1.02 mg/dL High CREAT,SERUM 1.32 Result Comment: The validity of the calculated GFR AND GFRAA in patients over 70 years has not been determined. Clinical correlation is essential. LAB L501.1110 >60 mL/min Low EST GFR 51 Result Comment: Non- GFR Calc LAB L501.1115 >60 mL/min Normal EST GFR - AA 61 Result Comment: GFR Calc LAB L501.1255 ml/min Normal Estimated CRCL 57.10 LAB L501.1300 10-20 RATIO High BUN/CRE 25.0 LAB L501.1500 6.4-8. g/dL Low 2 T PROT 6.3 LAB L501.1800 3.2-5. g/dL Normal 0 ALB 3.5 LAB L501.1950 2.2-4. g/dL Normal 2 GLOB 2.8 LAB L501.2000 0.9-2. RATIO Normal 4 A/G 1.2 LAB L501.2200 8.5-10 mg/dL Low .1 CA 8.2 LAB L501.4100 15-37 U/L Low AST 14 LAB L501.4305 45-117 U/L Normal ALK P 75 LAB L501.4405 13-56 U/L Normal ALT 17 Result Comment: Please note revised ALT reference range effective 2017. LAB L501.4600 0.20-1.00 mg/dL Normal T BILI 0.70 LAB L501.5300 136-145 mmol/L Normal NA 140 LAB L501.5600 3.5-5.1 mmol/L Normal K 5.0 LAB L501.5900 98-107 mmol/L Normal CL 104 LAB L501.6100 21.0-32.0 mmol/L Low CO2 18.0 LAB L501.6200 5-15 High GAP 18 Performed By: #### L500.4050, L501.4010 #### [facility] [address] [place], [place], [address] TROPONIN-I Collected: 10/13/2017 Status: F Source: [place] 9:35 AM [facility] REPOSITORY Order Comment: 'TROP' Serial specimen #1, #2, #3, or #4: 1 TYPE CODE TESTS RESULT OUT OF RANGE REFERENCE UNITS LAB L501.4010 <0.06 ng/mL Normal 0.06 TROPONIN-I Result Comment: TROPONIN-I EXPECTED VALUES <0.05 NEGATIVE 0.06 - 0.59 AT RISK OF OR > OR = 0.60 SUGGEST OR Performed By: #### L500.4050, L501.4010 #### [facility] [address] [place], [place], [address] CBC W/DIFF, AUTOMATED Collected: 10/13/2017 Status: C Source: [place] 9:35 AM [facility] REPOSITORY TYPE CODE TESTS RESULT OUT OF RANGE REFERENCE UNITS LAB L100.1000 4.4-11.0 K/mm3 High WBC 17.0 LAB L100.1200 4.2-5.4 M/mm3 Low RBC 3.71 LAB L100.1300 12.0-15.0 g/dl Low HGB 10.1 LAB L100.1400 37-47 % Low HCT 35.1 LAB L100.1500 81-99 fL Normal MCV 94.6 LAB L100.1600 27.0-32.0 pg Normal MCH 27.2 LAB L100.1700 32-36 g/gl Low MCHC 28.8 LAB L100.1810 11.6-14.6 % High RDW CV 21.6 LAB L100.1820 35.1-43.9 fl High RDW SD 73.5 LAB L100.1900 150-450 K/mm3 Normal PLT 166 LAB L100.2000 6.2-12.0 fl High MPV 12.2 LAB L100.2100 47-70 % High NEUT% 79.3 LAB L100.2200 19-41 % Low LY% 8.3 LAB L100.2300 0-10 % Normal MONO% 7.0 LAB L100.2400 0-5 % Normal EO% 2.4 LAB L100.2500 0-1 % Normal BASO% 0.5 LAB L100.2550 0.0-0.9 % High IM GRAN % 2.500 Result Comment: IG% - Immature Granulocytes (promyelocytes, myelocytes and metamyelocytes) > 1% indicates that a LEFT SHIFT is Present. LAB L100.2620 2.0-7.7 X10 3/uL High Absolute Neut 13.5 LAB L100.2720 0.83-4.51 X10 3/ul Normal Absolute Lymph 1.41 LAB L100.9900 Normal PATH REV Reviewed Result Comment: Neutrophilic leukocytosis with left shift. Normocytic anemia. Clinical correlation necessary. Carlitos Hirsch M.D. 10/16/17 Pathologist comment added AMENDED REPORT 10/16/17 1433 PATH REV previously reported as: May foll LAB L100.5500 ADEQ PLT EST Normal ADEQUATE LAB L100.5650 PLT MORPH Normal LARGE LAB L100.7000 NORM C NORMAL AND C RED CELL MORPH Normal N CYTIC LAB L100.7300 ANISO Normal 2+ LAB L100.7500 POLYCHROMASIA Normal 1+ LAB L100.8100 CRENATED RBC Normal 1+ LAB L100.8400 SCHISTOCYTES High 2+ Performed By: #### L100.0100, L100.4425 #### [facility] [address] [place], [place], [id number] NRBC PANEL Collected: 10/13/2017 Status: F Source: [place] 9:35 AM [facility] REPOSITORY TYPE CODE TESTS RESULT OUT OF RANGE REFERENCE UNITS LAB L100.4450 0-5 % Normal NRBC, FLAGGED 0.24 LAB L100.4455 0-5 10 3/uL Normal NRBC # 1.40 Performed By: #### L100.0100, L100.4425 #### [facility] [address] [place], [place], [address] LACTIC ACID Collected: 10/13/2017 Status: F Source: [place] 9:35 AM [facility] REPOSITORY Order Comment: Yes/No query for Sepsis Lactate Rule Y TYPE CODE TESTS RESULT OUT OF REFERENCE UNITS RANGE LAB L503.6005 0.4-2.0 mmol/L High alert LACTIC ACID 12.4 Result Comment: Critical Result(s) Called at: 10:41:50 10/13/2017 by: Galdino Zamorano AMENDED REPORT 10/13/17 1106 LACTIC ACID previously reported as: 12.4 *H mmol/L Critical Result(s) Called at: 10:41:50 10/13/2017 by: Yinka Nava Performed By: #### L503.6005 #### [facility] [address] [place], [place], [address] ,SERUM,HCG QUALI. Collected: Status: F Source: [place] 10/13/2017 9:35 AM [facility] REPOSITORY TYPE CODE TESTS RESULT OUT OF REFERENCE UNITS RANGE LAB L700.7000 0-9 Nonpreg Negative Normal HCGSQUAL NEGATIVE LAB L700.6700 =>Qualitative mIU/mL Normal HCG Qual 2 triggr Performed By: #### L700.6800 #### [facility] [address] [place], [place], [address] PROTHROMBIN TIME W/INR Collected: 10/13/2017 Status: F Source: [place] 8:00 AM [facility] REPOSITORY Order Comment: MEDOUT/PORTDRAW TYPE CODE TESTS RESULT OUT OF RANGE REFERENCE UNITS LAB L300.4150 11.7-14.9 SECONDS High PROTIME 22.8 LAB L300.4200 Normal INR 2.0 Performed By: #### L300.3900 #### [facility] [address] [place], [address] Observed: 10/13/2017 Status: F Source: [place] RESPIRATORY CULT/STAIN 12:36 AM [facility] REPOSITORY Smear Result - Rare Mixed oral and respiratory zoila Few Polymorphonuclear leukocytes Rare Epithelial cells Culture Result - Rare Normal respiratory zoila present Performed By: #### RCULST #### [facility] [address] [place], [place] [address] CNCRITCR Observed: 10/13/2017 Status: COMPLETED Source: [place] 12:00 AM [facility] REPOSITORY Critical Care Transport (CCT) PALOMA CANNON ([id number]) 1990 F PTR Date Time Provider Department 10/13/17 DOMINGO COBB ([facility]) CCT During your visit today, we recorded the following information about you: Domingo Cobb, MSN AMALGAMATOR.ELLIOTT 10/13/2017 1:16 PM Signed Critical Care Transport Note Patient Name: Paloma Cannon Service Date: October 13, 2017 Referring Facility: [facility] Accepting Facility: [place] [address] SUBJECTIVE/CHIEF COMPLAINT: Shortness of breath REASON FOR TRANSPORT: Higher level critical care services unavailable at sending facility History of Present Illness: The following history is what was known to CCT team at time of given care and summarized through review of available medical records, patient/family interview and from referring physician and nursing report. Paloma Cannon is a 27 year old female with a past medical history significant for CHF, Anemia, Anasarca, Anemia, Antiphospholipid syndrome s/p DVT on coumadin, HTN, HIT. She presented to [facility] on 10/13 for evaluation of shortness of breath. Patient received plasmapheresis a few weeks ago and was supposed to have another treatment on 10/09 but missed her appointment. Today patient developed cough which turned in to inability to catch her breath. Patient was brought to [place] [facility] where she was tripoding in respiratory distress with SPO2 in 80s. Patient was emergently intubated using etomidate/succ and placed on mechanical ventilation. Patient was reported to be difficult to sedate and is requiring high dose propofol. Patient was supposed to be started on vancomycin and zosyn but patient had minimal access and refused zosyn as he reported allergy to it. At this time, the physician managing the patient requested transfer to the [facility] for tertiary and/or quaternary services unavailable at the referring facility. The physician managing the patient requested the [facility] Critical Care Transport Team transport and treat the patient for the purpose of tertiary care, evaluation, and management of her medical condition(s). Patient condition at time of exam was: critically ill. Due to the unique circumstances of the patient, it was determined that this was the closest, most appropriate facility by referring physician. REVIEW OF SYSTEMS: Unable to obtain d/t intubation PAST MEDICAL HISTORY: PAST MEDICAL HISTORY Diagnosis Date - (HFpEF) heart failure with preserved ejection fraction (HCC) 02/20/2016 HFpEF w last EF 50-55% On Torsemide, coreg, hydralazine and imdur at home No signs of acute exacerbation on admission Plan: -Continue home medications - Anasarca 11/29/2013 - Anemia 03/10/2015 Chronic microcytic anemia. 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 Thrombosis, and Diffuse Alveolar Hemorrhage. On Warfarin and PLEX (Twice Weekly)? Plan: -Warfarin 5mg qday-holding for planned EGD on 01/11 d/t supra therapeutic INR -Cont. PO Prednisone 10mg MWFS and 5mg TTS -Pantoprazole for GI PPx of Above -Apharesis was supposed to be yesterday, will contact plasmapheresis team on recommendations - Antiphospholipid syndrome (HCC) - Catastrophic Antiphospholipid antibody syndrome 11/09/2013 - Cholelithiasis 01/11/2017 Likely cause of recent pancreatitis. Plan: Per general surgery, no acute surgical intervention at this time. Will await results of EGD. If active gastritis, favor outpatient cholecystectomy. If no active gastritis on EGD, plan for cholecystectomy this admission. - CKD (chronic kidney disease) stage 3, GFR 30-59 ml/min 07/06/2016 Baseline SCr 1.5-1.7 Plan: -renally dose medications -avoid nephrotoxic agents - DVT (deep venous thrombosis) (HCC) - Elevated CA-125 11/30/2013 244 - Essential hypertension 10/08/2015 Stable on home medications Plan: -continue to monitor on home meds - 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 Bivalirudin to Warfarin bridging - HIT (heparin-induced thrombocytopenia) (HCC) - Nontoxic multinodular goiter - Obese - Obesity, Class III, BMI ANDgt;= 40 (morbid obesity) E66.01 10/18/2016 - Peripheral neuropathy 04/14/2016 - Severe protein-calorie malnutrition (HCC) 12/29/2015 PAST SURGICAL HISTORY: PAST SURGICAL HISTORY Procedure Laterality Date - PAST SURGICAL HISTORY OF 2012 IVC thrombectomy - PAST SURGICAL HISTORY OF 2012 b/l iliac v. 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 - PAST SURGICAL HISTORY OF Adenoidectomy - PICC LINE INSERT/CONSULT 11/29/2013 - PICC LINE INSERT/CONSULT 03/10/2015 - PICC LINE INSERT/CONSULT 02/20/2016 ALLERGIES: Rhubarb; Heparin; Iv Contrast [Iodine]; Rituximab SOCIAL HISTORY: Social History Substance Use Topics - Smoking status: Never Smoker - Smokeless tobacco: Never Used - Alcohol use No FAMILY HISTORY: FAMILY HISTORY Problem Relation Age of Onset - Breast Cancer Mother spine BRCA neg - Ovarian cyst [OTHER] Mother - ovarian cyst [OTHER] Sister - Thyroid No Family History HOME MEDICATIONS: gabapentin (NEURONTIN) 100 mg capsule Take 400mg in the morning Take 300 mg in the afternoon Take 300mg in the evening Patient may change dose based on pain COMPOUNDED PRESCRIPTION Home oxygen at 2 litres nc continuous , 3 litres with exertion , via oxygen concentrator with portable oxygen tanks , conserving device for ambulation , titrated to comfort fondaparinux (ARIXTRA) 2.5 mg/0.5 mL syrg Inject 2.5 mg subcutaneously q 24 HR. Short term medication to cover while warfarin was on hold torsemide (DEMADEX) 20 mg tablet Take 20 mg by mouth once daily as needed (takes 20-60 mg as needed for chronic edema). ondansetron (ZOFRAN, HYDROCHLORIDE,) 8 mg tablet Take 1 tablet by mouth every 12 hours as needed for Nausea/Vomiting. COMPOUNDED PRESCRIPTION O2 Condenser- whichever is covered by patient's insurance Acute on chronic respiratory failure with hypoxia (HCC) ?- Primary J96.21Pulmonary HTN I27.20SIRS (systemic inflammatory response syndrome) (HCC) R65.10 cyclophosphamide (CYTOXAN) 50 mg capsule Take 3 capsules by mouth once daily. predniSONE (DELTASONE) 5 mg tablet Take 1 tablet by mouth once daily. warfarin (COUMADIN) 2.5 mg tablet take by mouth as directed in the evening to keep INR between 2.0-3.0 amLODIPine (NORVASC) 5 mg tablet Take 2 tablets by mouth once daily. HOLD FOR SBP ANDlt;120 sulfamethoxazole-trimethoprim (BACTRIM DS) 800-160 mg per tablet Take 1 tablet by mouth every Monday,Monday,Monday. fluticasone (FLONASE) 50 mcg/actuation nasal spray Use 1-2 Sprays in each nostril once daily as needed for Cold/Allergy Symptoms (starting in allergy season). pantoprazole DR (PROTONIX) 40 mg tablet Take 1 tablet by mouth DAILY (6 AM). cetirizine 10 mg tablet Take 1 tablet by mouth once daily. senna 8.6 mg tab Take 1 tablet by mouth twice daily as needed. Medications Administered by Referring Facility: Etomidate Succinylcholine Propofoll @ 50 mcg/kg/min OBJECTIVE: Recent Labs, Diagnostics ANDamp; Procedure Reports by OSH reviewed as available CBC: WBC- 17 HGB- 10 Coags: INR- 2.1 Chemistry: NA- 140 K+- 5 CL -104 CO2- 18 BUN- 18 Cr- 1.32 Glucose- 194 Other Pertinent Labs: Lactate 12/4 ABG 7.13/56/86/19 Diagnostics ANDamp; Procedure Reports ECG: normal sinus rhythm Chest X-Ray : bilateral diffuse airspace disease suggestive of pulmonary edema vs alveolar hemorrhage CT : NA Invasive Lines/Devices/Tubes Placed by Referring Facility: Endotracheal intubation PHYSICAL EXAM: Upon CCT Arrival at Referring Facility Vital Signs: HR 89bpm, BP 158/89mmHg, RR 30, SpO2 100% Oxygen/Ventilator Settings: AC 14 400 100% +14 General appearance: acutely ill. HEENT: normocephalic, PERRL. Oropharynx clear, no plaques or exudates,Posterior Oropharynx symmetric,Mucous membranes moist Respiratory: clear to auscultation bilaterally,no respiratory distress,no rales,no rhonchi,no wheezing. Cardiovascular: no murmurs, no rubs, no gallops, regular rate and rhythm, peripheral pulses symmetric. Gastrointestinal: soft, nontender, nondistended. Genitourinary: Zuniga with lisseth urine Musculoskeletal: positive peripheral edema 2+ Skin: open sore to RLE. Heme/Lymph: No abnormal bleeding Neurologic: Intubated, sedated, follows commands when stimulated CRITICAL CARE COURSE Upon bedside arrival at referring facility the patient was assessed and detailed physical exam performed and noted above. The patient was placed on the transport monitor and all transport equipment transitioned in standard fashion. The patient was transferred to the transport cot and transported to the Aircraft and loaded without incident. The patient was medically managed, monitored, and reassessed during transport. Medications Managed ANDamp; Administered by CCT: Propofol continued @ 50 mcg/kg/min Procedures Performed by CCT: none ASSESSMENT/PLAN: Acute Respiratory Failure Alveolar Hemorrhage Coagulopathy - presented in acute distress, emergently intubated, CXR + for bilateral airspace disease - will maintain current vent settings, adjust as tolerated to maintain PIP ANDlt; 30, SPO2 ANDgt; 92% and ETCO2 40 - maintain propofol infusion for sedation - attempt additional access to start vancomycin infusion - expedite transfer to [facility] for plasmapharesis The transport was completed without significant incident or change in the patient's status . The patient was transported to the the [facility] by Rotor (Helicopter) for tertiary and/or quaternary evaluation and management of her Critical Medical condition(s). Upon arrival to the receiving facility, a [id number] report was given to bedside staff in G61. Patient care was transferred. The patient condition was Critical at the time of transfer Vital Signs at time care transferred to the receiving facility unit: HR 103bpm, BP 111/75 mmHg, RR 24, SpO2 100% ETCO2 40 PIP23 on AC 14 400 100% =14 SPECIAL EQUIPMENT: None MODE OF TRANSPORT: Rotor (Helicopter) CRITICAL CARE TIME:I personally performed 45 minutes of critical care time exclusive of separately billable procedures, ambulance charges and treating other patients. This was necessary to treat or prevent further deterioration of the following condition(s): Acute respiratory failure Respiratory impairment which the patient had and/or had a high probability of suddenly developing. SIGNATURE: Domingo Cobb, MSN AMALGAMATOR.DIRECTOR OF HOTEL Acute Care Nurse Practitioner [facility] Critical Care Transport Team Allergies As of Date: 10/13/2017 Noted Allergy Reaction RHUBARB 10/24/2013 2 - Rash 4 - Hives HEPARIN 10/24/2013 14 - Other: See Comments Comments: Per patient history of HIT - was on angiomax however then took l fondaparinux for bridging to coumadin. IV CONTRAST (IODINE) 2016 14 - Other: See Comments Comments: shuts kidneys down per patient RITUXIMAB 11/09/2016 14 - Other: See Comments Comments: Elevated cardiac enzymes Date Reviewed: 10/05/2017 Reviewed by: Joan (Rn) JEFF Gan - Fully Assessed Reason for Visit: Critical Care Transport [[id number]] Prescriptions as of 10/13/2017 Sig: GABAPENTIN 100 MG CAPSULE Take 400mg in the morning Ethan* COMPOUNDED PRESCRIPTION Home oxygen at 2 litres nc co* FONDAPARINUX 2.5 MG/0.5 ML STAFFORD* Inject 2.5 mg subcutaneously * TORSEMIDE 20 MG TABLET Take 20 mg by mouth once dana* ONDANSETRON HCL 8 MG TABLET Take 1 tablet by mouth every * Patient taking differently: Take 8 mg by mouth every 8 ho* COMPOUNDED PRESCRIPTION O2 Condenser- whichever is co* CYCLOPHOSPHAMIDE 50 MG CAPSULE Take 3 capsules by mouth once* PREDNISONE 5 MG TABLET Take 1 tablet by mouth once d* WARFARIN 2.5 MG TABLET take by mouth as directed in * AMLODIPINE 5 MG TABLET Take 2 tablets by mouth once * Patient taking differently: Take 5 mg by mouth twice dana* SULFAMETHOXAZOLE 800 MG-TRIME* Take 1 tablet by mouth every * FLUTICASONE 50 MCG/ACTUATION * Use 1-2 Sprays in each nostri* PANTOPRAZOLE 40 MG TABLET,DEL* Take 1 tablet by mouth DAILY * Patient taking differently: Take 40 mg by mouth every elaine* CETIRIZINE 10 MG TABLET Take 1 tablet by mouth once d* Patient taking differently: Take 10 mg by mouth twice lis* SENNOSIDES 8.6 MG TABLET Take 1 tablet by mouth twice * More... More... Problem List As Of Date 10/13/2017 Noted Resolved Catastrophic Antiphospholipid antibody syndrome*INVALID FOR*01/24/2017 Priority: C More... 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 Severe Gastritis [K29.70] INVALID FOR*01/11/2017 Priority: F More... More... More... More... More... Anasarca [R60.1] INVALID FOR*01/24/2017 Priority: E More... More... More... More... More... More... 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 More... More... More... More... More... More... More... More... Hx pulmonary embolism [Z86.711] INVALID FOR*01/11/2017 Priority: C More... H/O deep vein thrombophlebitis of lower extremi*INVALID FOR*03/12/2015 Priority: C More... More... More... More... More... More... Hemoptysis [R04.2] INVALID FOR*12/27/2016 More... Elevated troponin [R74.8] INVALID FOR*01/11/2017 Pancytopenia (HCC) [D61.818] INVALID FOR* Priority: C More... Thrombocytopenia (HCC) [D69.6] INVALID FOR*01/11/2017 More... SUMMARY INVALID FOR*01/24/2017 Priority: A More... SIRS (systemic inflammatory response syndrome) *INVALID FOR*04/15/2015 Priority: D More... DVT (deep venous thrombosis) (HCC) [I82.409] INVALID FOR*01/11/2017 Priority: D More... Iron deficiency anemia [D50.9] INVALID FOR*01/11/2017 Priority: F More... Productive cough, hemoptysis [R04.2] INVALID FOR*01/04/2017 Priority: B Community acquired pneumonia [J18.9] INVALID FOR*01/11/2017 Respiratory failure with hypoxia (HCC) [J96.91] INVALID FOR*01/11/2017 Priority: B More... SOB (shortness of breath) [R06.02] INVALID FOR*12/28/2016 HTN (hypertension) [I10] INVALID FOR* Priority: E More... CAPRICE (acute kidney injury) (HCC) [N17.9] INVALID FOR* Priority: B More... 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 Hx of gastritis [Z87.19] INVALID FOR*01/11/2017 More... Nausea AND vomiting [R11.2] INVALID FOR*08/28/2017 Priority: B More... 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 Anemia associated with acute blood loss [D62] INVALID FOR*01/11/2017 More... More... Acute on chronic respiratory failure with hypox*INVALID FOR* Priority: A More... Abdominal pain [R10.9] INVALID FOR* Priority: E More... Vomiting [R11.10] INVALID FOR*01/04/2017 Antiphospholipid syndrome (HCC) [D68.61] INVALID FOR*01/04/2017 Severe protein-calorie malnutrition (HCC) [E43] INVALID FOR* Priority: B Hypoxia [R09.02] INVALID FOR*01/11/2017 Acute hypoxemic respiratory failure (HCC) [J96.*INVALID FOR*12/28/2016 More... Personal history of DVT (deep vein thrombosis) *INVALID FOR*01/11/2017 More... History of heparin-induced thrombocytopenia [Z8*INVALID FOR* Priority: C More... Hospital-acquired pneumonia [J18.9] INVALID FOR*12/28/2016 Priority: B More... Hypoxemia [R09.02] INVALID FOR*01/11/2017 (HFpEF) heart failure with preserved ejection f*INVALID FOR* Priority: D More... Headache [R51] INVALID FOR*01/18/2017 Priority: I More... More... Peripheral neuropathy [G62.9] INVALID FOR* Priority: H Joint pain [M25.50] INVALID FOR*01/11/2017 More... Diffuse arthralgia [M25.50] INVALID FOR*01/11/2017 Priority: C More... CKD (chronic kidney disease) stage 3, GFR 30-59*INVALID FOR* Priority: C More... Obesity, Class III, BMI >= 40 (morbid obesity) *INVALID FOR* Priority: F More... Hypertensive emergency [I16.1] INVALID FOR*12/05/2016 More... Acute on chronic diastolic congestive heart ena*INVALID FOR*01/11/2017 More... APS (antiphospholipid syndrome) (HCC) [D68.61] INVALID FOR* Priority: Severe More... Elevated troponin level [R74.8] INVALID FOR*12/05/2016 More... Hypertensive urgency [I16.0] INVALID FOR*12/05/2016 PNA (pneumonia) [J18.9] INVALID FOR*12/27/2016 Acute respiratory failure with hypoxia (HCC) [J*INVALID FOR*12/27/2016 Clostridium difficile colitis [A04.72] INVALID FOR*12/28/2016 Hemoptysis [R04.2] INVALID FOR*01/20/2017 More... More... Supratherapeutic INR [R79.1] INVALID FOR*04/28/2017 Priority: B More... Cholelithiasis [K80.20] INVALID FOR*01/24/2017 Priority: B More... Ecchymosis of right eye [S05.11XA] INVALID FOR*01/18/2017 Priority: H More... Anticoagulation management encounter [Z51.81, Z*INVALID FOR* Priority: D Acute respiratory failure (HCC) [J96.00] INVALID FOR*02/10/2017 Priority: A More... Pulmonary HTN (HCC) [I27.20] INVALID FOR* Priority: F More... GERD (gastroesophageal reflux disease) [K21.9] INVALID FOR* Priority: E More... RUQ abdominal pain [R10.11] INVALID FOR* Priority: E More... Hemoptysis [R04.2] INVALID FOR*03/11/2017 More... Diarrhea [R19.7] INVALID FOR* Priority: E More... Bacteremia [R78.81] INVALID FOR* Priority: B More... History of HIT (heparin-induced thrombocytopeni*INVALID FOR* Priority: D More... Recurrent deep vein thrombosis (DVT) (HCC) [I82*INVALID FOR* Priority: Moderate Recurrent pulmonary emboli (HCC) [I26.99] INVALID FOR* Anticoagulation monitoring, special range [Z79.*INVALID FOR* Renal vein thrombosis (HCC) [I82.3] INVALID FOR* 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] INVALID FOR* Hypoglycemia [E16.2] INVALID FOR*04/28/2017 Priority: A More... Edema [R60.9] INVALID FOR*08/28/2017 Priority: A More... Flu-like symptoms [R68.89] INVALID FOR*06/10/2017 Hypercoagulable state (HCC) [D68.59] INVALID FOR* Priority: B More... Healthcare maintenance [Z00.00] INVALID FOR* More... Iron deficiency anemia secondary to inadequate *INVALID FOR* Priority: D More... SIRS (systemic inflammatory response syndrome) *INVALID FOR* More... Fever of undetermined origin [R50.9] INVALID FOR*08/25/2017 Red man syndrome [L27.0] INVALID FOR*08/28/2017 More... Sepsis due to Enterococcus (HCC) [A41.81] INVALID FOR* Priority: A Bacteremia due to Staphylococcus epidermidis [R*INVALID FOR* More... Hemoptysis [R04.2] INVALID FOR*10/05/2017 Priority: A More... Dysuria [R30.0] INVALID FOR*10/05/2017 More... Obesity, Class II, BMI 35-39.9 E66.9 [E66.9] INVALID FOR* Pulmonary alveolar hemorrhage [R04.89] INVALID FOR* Priority: Very Severe Follow-up and Disposition History Recorded Encounter Status:Closed by DOMINGO COBB CNP on 10/13/17 PROTHROMBIN TIME W/INR Collected: 10/09/2017 Status: F Source: [place] 8:15 AM [facility] REPOSITORY Order Comment: MEDOUT/PORT DRAW TYPE CODE TESTS RESULT OUT OF RANGE REFERENCE UNITS LAB L300.4150 11.7-14.9 SECONDS High PROTIME 24.1 LAB L300.4200 Normal INR 2.2 Performed By: #### L300.3900 #### [facility] [address] [place], [address] PROTHROMBIN TIME W/INR Collected: 10/06/2017 Status: F Source: [place] 8:00 AM [facility] REPOSITORY Order Comment: Comments: FAX TO MAGDALENA LEWIS, [facility] [phone] TYPE CODE TESTS RESULT OUT OF RANGE REFERENCE UNITS LAB L300.4150 11.7-14.9 SECONDS High PROTIME 15.2 LAB L300.4200 Normal INR 1.2 Performed By: #### L300.3900 #### [facility] [address] [place], [address] PLAN OF CARE Observed: 10/05/2017 Status: COMPLETED Source: [place] 4:40 PM [facility] REPOSITORY HNO ID: [id number] Author: Aleta ([facility]) Nazia (Pharmacist) Service: Pharmacy Author Type: Pharmacist Type: Plan of Care Filed: 10/05/2017 4:40 PM Note Text: DISCHARGE MEDICATION REVIEW BY PHARMACY Patient Name: Paloma Cannon Account #: Data Unavailable Admission Date: 09/29/2017 Date of Contact: October 05, 2017 Time of Contact: 4:40 PM Medication list was reviewed by a Pharmacist for drug interactions or drug related problems:Yes Below is a summary of pharmacist recommendations discussed with LIP: No Recommendations at this time from Discharge Medication List. Aleta Mandujano, Pharmacist October 05, 2017 4:40 PM Pager: [phone] 10/05/2017 4:40 PM Medication List START taking these medications COMPOUNDED PRESCRIPTION Home oxygen at 2 litres nc continuous , 3 litres with exertion , via oxygen concentrator with portable oxygen tanks , conserving device for ambulation , titrated to comfort CHANGE how you take these medications amLODIPine 5 mg tablet Commonly known as: NORVASC Take 2 tablets by mouth once daily. HOLD FOR SBP <120 What changed: - how much to take - when to take this - additional instructions cetirizine 10 mg tablet Commonly known as: ZyrTEC Take 1 tablet by mouth once daily. What changed: - when to take this - additional instructions gabapentin 100 mg capsule Commonly known as: NEURONTIN Take 400mg in the morning Take 300 mg in the afternoon Take 300mg in the evening Patient may change dose based on pain What changed: - medication strength - additional instructions ondansetron 8 mg tablet Commonly known as: ZOFRAN ( HYDROCHLORIDE) Take 1 tablet by mouth every 12 hours as needed for Nausea/Vomiting. What changed: when to take this pantoprazole DR 40 mg tablet Commonly known as: PROTONIX Take 1 tablet by mouth DAILY (6 AM). What changed: when to take this CONTINUE taking these medications COMPOUNDED PRESCRIPTION O2 Condenser- whichever is covered by patient's insurance Acute on chronic respiratory failure with hypoxia (HCC) ?- Primary J96.21 Pulmonary HTN I27.20 SIRS (systemic inflammatory response syndrome) (HCC) R65.10 cyclophosphamide 50 mg capsule Commonly known as: CYTOXAN Take 3 capsules by mouth once daily. FLONASE 50 mcg/actuation nasal spray Generic drug: fluticasone fondaparinux 2.5 mg/0.5 mL Syrg Commonly known as: ARIXTRA predniSONE 5 mg tablet Commonly known as: DELTASONE Take 1 tablet by mouth once daily. senna 8.6 mg Tab Commonly known as: SENOKOT Take 1 tablet by mouth twice daily as needed. sulfamethoxazole-trimethoprim 800-160 mg per tablet Commonly known as: BACTRIM DS Take 1 tablet by mouth every Monday,Monday,Monday. torsemide 20 mg tablet Commonly known as: DEMADEX warfarin 2.5 mg tablet Commonly known as: COUMADIN take by mouth as directed in the evening to keep INR between 2.0-3.0 Where to Get Your Medications These medications were sent to [facility] 12 [place] [id number] - [id number] [facility] - [phone] [address] [facility] [address] - gabapentin 100 mg capsule Information about where to get these medications is not yet available ! Ask your nurse or doctor about these medications - COMPOUNDED PRESCRIPTION CNDS Observed: 10/05/2017 Status: COMPLETED Source: [place] 4:31 PM [facility] REPOSITORY HNO ID: [id number] Author: Sanchez Quiros MD Service: Hospital Medicine Author Type: Resident Type: Discharge Summaries Filed: 10/05/2017 4:56 PM Note Text: Attestation signed by Ameena Mendez MD at 10/06/2017 4:39 PM I have seen and evaluated the patient and discussed the case with the resident physician. I agree with the assessment and plan as documented in the resident?s note. Ameena Mendez MD October 06, 2017 4:39 PM DISCHARGE SUMMARY PATIENT NAME: Paloma Cannon ADMISSION DATE: 09/29/2017 DISCHARGE DATE: 10/05/2017 ATTENDING PHYSICIAN: Ameena Mendez MD REASON FOR HOSPITALIZATION: SOB, hypoxemia, hemoptysis DIAGNOSIS: Principal Problem: HTN (hypertension) Active Problems: APS (antiphospholipid syndrome) (HCC) CKD (chronic kidney disease) stage 3, GFR 30-59 ml/min (HFpEF) heart failure with preserved ejection fraction (HCC) History of HIT (heparin-induced thrombocytopenia) ([facility]) Peripheral neuropathy Obesity, Class II, BMI 35-39.9 E66.9 Resolved Problems: Hemoptysis Dysuria OPERATIONS DURING HOSPITALIZATION: None PROCEDURES DURING HOSPITALIZATION: EKG HOSPITAL COURSE: Patient is a 27 year old female with a PMHx of anti-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 endograft, on senior living AC with warfarin, plasmapharesis q2 weeks, prednisone 5 mg qD), 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 Warfarin was initially held d/t concern for diffuse alveolar hemorrhage and she was placed on fondaparinx for DVT prophylaxis (hx of HIT). She was admitted to the MICU and was stable there, no additional hemoptysis, but still with an increased supplemental O2 requirement. CXR showing diffuse bilateral airspace opacities. Her increased oxygen requirement slowly improved with time. Desaturation study on the day of discharge showed she still had increased oxygen requirements compared to her baseline (baseline was RA during day, 2L at night) Vascular medicine was consulted given the complexity of her anticoagulation. The patient's plan was tailored specifically for her. She was only on prophylactic fondaparinux and was discharged with a subtherapeutic INR with close follow-up by vascular med. Hematology also following. Her cyclophosphamide was continued with Bactrim as ppx. She received plasmapheresis while admitted and briefly was on an increased dose of prednisone. Additionally, she was complaining of dysuria and placed on antibiotics. Subsequent UA and urine cultures were negative so these abx were stopped and her dysuria resolved. Her other medical conditions were stable and treated with her home meds. ? LABS AND PROCEDURES PENDING AT DISCHARGE: No pending results. CONSULTING TEAMS DURING HOSPITALIZATION: Vascular Medicine: Consulted for complex anticoagulation management. Warfarin was initially held d/t concern for DAH but restarted with Fondaparinux given for DVT prophylaxis Hematology: Consulted for management of APS. Patient continued on home cyclophosphamide and scheduled plasmapheresis. Patient was briefly on an increased dose of Prednisone. PATIENT CONDITION AT DISCHARGE: Stable DISCHARGE DISPOSITION: Home/Self Care Discharge Physical Exam: VITAL SIGNS: BP 134/69 Pulse 108 Temp 36.8 ?C (98.2 ?F) (Oral) Resp 18 Ht 160 cm (5' 3) Wt 101.4 kg (223 lb 8 oz) SpO2 95% BMI 39.59 kg/m2 Physical Exam Performed GENERAL: Alert, obese female ,sitting comfortably in bed, in NAD SKIN: Warm, dry, no lesions or rashes noted HEAD/SINUSES: Normocephalic, atraumatic LUNGS: CTAB, no increased wob. 4L O2 via NC CARDIAC: RRR, normal S1/S2, no murmurs ABDOMEN: Soft, NT, ND EXTREMITIES: Trace pitting edema and erythema present in bilateral LE NEURO: AANDOx3, strength and sensation grossly normal PULSES: 2+ radial INFORMATION PROVIDED TO PATIENT: (To pull info documented from the DC Instruct Orderset Complete O/S First): WOUND CARE INSTRUCTIONS COMPRESSION WRAPS - SPECIFY Order Comments: Compression wraps to B/L LEs daily -HEATHER wraps should be applied in a spiral fashion from base of toes to just below the knee, with 50% overlay -Wraps should be removed daily, skin assessed, wash legs w/soap and water and apply thick layer of moisturizing lotion, and compression wraps reapplied. -LE should be elevated above the level of the heart whenever patient is sitting or lying down in bed Freq: qs (I) Order Specific Question: Specify: Answer: HEATHER DISCHARGE MEDICATION: Current Discharge Medication List START taking these medications !! COMPOUNDED PRESCRIPTION Home oxygen at 2 litres nc continuous , 3 litres with exertion , via oxygen concentrator with portable oxygen tanks , conserving device for ambulation , titrated to comfort Qty: 1 Device Refills: 0 Associated Diagnoses:Hemoptysis; APS (antiphospholipid syndrome) (HCC); Acute hypoxemic respiratory failure (HCC); (HFpEF) heart failure with preserved ejection fraction (HCC); Acute on chronic respiratory failure with hypoxia (HCC); Pulmonary HTN !! - Potential duplicate medications found. Please discuss with provider. CONTINUE these medications which have CHANGED gabapentin (NEURONTIN) 100 mg capsule Take 400mg in the morning Take 300 mg in the afternoon Take 300mg in the evening Patient may change dose based on pain Qty: 360 capsule Refills: 2 Associated Diagnoses:Peripheral polyneuropathy (HCC) CONTINUE these medications which have NOT CHANGED fondaparinux (ARIXTRA) 2.5 mg Inject 2.5 mg subcutaneously q 24 HR. Short term medication to cover while warfarin was on hold torsemide (DEMADEX) 20 mg Take 20 mg by mouth once daily as needed (takes 20-60 mg as needed for chronic edema). !! COMPOUNDED PRESCRIPTION O2 Condenser- whichever is covered by patient's insurance Acute on chronic respiratory failure with hypoxia (HCC) ?- Primary J96.21 Pulmonary HTN I27.20 SIRS (systemic inflammatory response syndrome) (HCC) R65.10 Qty: 1 Each Refills: 0 Associated Diagnoses:Acute on chronic respiratory failure with hypoxia (HCC); Pulmonary HTN; SIRS (systemic inflammatory response syndrome) (HCC) cyclophosphamide (CYTOXAN) 150 mg Take 150 mg by mouth once daily. Qty: 120 capsule Refills: 6 predniSONE (DELTASONE) 5 mg Take 5 mg by mouth once daily. Qty: 200 tablet Refills: 4 warfarin (COUMADIN) 2.5 mg tablet take by mouth as directed in the evening to keep INR between 2.0-3.0 Qty: 60 tablet Refills: 2 amLODIPine (NORVASC) 10 mg Take 10 mg by mouth once daily. HOLD FOR SBP <120 Qty: 30 tablet Refills: 3 sulfamethoxazole-trimethoprim (BACTRIM DS,SEPTRA DS) 1 tablet Take 1 tablet by mouth every Monday,Monday,Monday. Qty: 36 tablet Refills: [address] (PROTONIX) 40 mg Take 40 mg by mouth DAILY (6 AM). Qty: 90 tablet Refills: 1 cetirizine (ZyrTEC) 10 mg Take 10 mg by mouth once daily. Qty: 30 tablet Refills: 0 ondansetron (ZOFRAN) 8 mg Take 8 mg by mouth every 12 hours as needed for Nausea/Vomiting. Qty: 40 tablet Refills: 3 Associated Diagnoses:Chemotherapy induced nausea and vomiting fluticasone (FLONASE) 1-2 Sprays Use 1-2 Sprays in each nostril once daily as needed for Cold/Allergy Symptoms (starting in allergy season). senna (SENOKOT) 8.6 mg Take 8.6 mg by mouth twice daily as needed. Qty: 60 tablet Refills: 0 !! - Potential duplicate medications found. Please discuss with provider. FUTURE APPOINTMENTS: Future Appointments Date Time Provider Department Center 10/16/2017 11:00 AM Akhil Howard [facility] 10/16/2017 12:30 PM [facility] 10/30/2017 12:30 PM [facility] 11/13/2017 12:00 PM [facility] 11/24/2017 9:00 AM Peyton Rogers [facility] 11/27/2017 12:00 PM [facility] 12/05/2017 8:15 AM [facility] 12/11/2017 12:00 PM [facility] 12/11/2017 12:20 PM XR CHEST MAIN A21 RADMN RADIO A BLDG 12/11/2017 1:25 PM Guillaume RODRIGUEZ PULM A/E/R/G 12/25/2017 12:00 PM [facility] [place] 01/08/2018 12:00 PM [facility] [place] 01/22/2018 12:00 PM [facility] [place] 02/05/2018 12:00 PM [facility] [place] TIME OF CARE: TIME OF CARE: Discharge Management: I personally spent greater than 30 minutes involved in the discharge management of this patient. SIGNATURE: Sanchez Quiros MD PATIENT NAME: Paloma Cannon DATE: October 05, 2017 TIME: 4:31 PM PAGER/CONTACT #: [phone] CASE MANAGEM Observed: 10/05/2017 Status: COMPLETED Source: [place] 4:28 PM [facility] REPOSITORY O ID: [id number] Author: Candie (Rn) JEFF Williamson Service: Care Management Author Type: Registered Nurse Type: Care Mgt Progress Note Filed: 10/05/2017 4:34 PM Note Text: CARE MANAGEMENT DISCHARGE NOTE SERVICE DATE: 10/05/2017 SERVICE TIME: 4:28 PM LOS: 6 days Admission Date: 09/29/2017 DISCHARGE ARRANGEMENT (list agency and phone number) Home Provider: N/A Phone: N/A CAREGIVER ASSESSMENT: Caregiver is ready, willing and able to meet the patient's needs as recommended by the inter-professional team? No Caregiver Needed Patient's transition needs and plan for meeting these needs: Home self care Does the patient have an acute stroke diagnosis, or has the patient had a stroke during this admission? No HANDOFF COMMUNICATION: Specialty Police Chief Deputy: Eugenia Ly Primary Care Physician: PEYTON ROGERS MD TRANSPORTATION ARRANGEMENTS: Car Family ADDITIONAL CONTACT RESOURCES: N/A Reviewed discharge instructions, patient discharged home with no skilled home care needs at this time. Per Mari @ [phone] [employer] oxygen GOOD home going oxygen to be delivered at the bedside today. Discharge instructions by nursing staff. Family to provide transport. SIGNATURE: Candie Williamson RN PATIENT NAME: Paloma Cannon DATE: October 05, 2017 TIME: 4:28 PM PAGER/CONTACT #: [phone] NUTRITION Observed: 10/05/2017 Status: COMPLETED Source: [place] 2:58 PM [facility] REPOSITORY HNO ID: [id number] Author: Janel Bang-T) Judi Service: Nutrition Therapy Author Type: Surveyor Helper Type: Nutrition Filed: 10/05/2017 3:00 PM Note Text: NUTRITION THERAPY FOLLOW-UP NOTE SERVICE DATE: 10/05/2017 SERVICE TIME: 1130 Anthropometrics: Height: 160 cm (5' 3) Current Weight: Weight: 101.4 kg (223 lb 8 oz) Body mass index is 39.59 kg/(m2). Loss of lean body mass/visual muscle wasting: no Admitting Diagnosis: Hypoxia [R09.02] Present Diet Order: Regular Is the patient having any pain that is interfering with oral/enteral intake? No Allergies: ALLERGIES Allergen Reactions - Rhubarb Rash, Hives - Heparin Other: See Comments Per patient history of HIT - was on angiomax however then took l fondaparinux for bridging to coumadin. - Iv Contrast [Iodine] Other: See Comments shuts kidneys down per patient - Rituximab Other: See Comments Elevated cardiac enzymes Reason for Visit: Nutrition screen: LOS > 6 days Food preferences: Added afternoon snack per patient request Nutrient intake assessment: Current intake of meals: 25 - 100% per EPIC Patient concerns/Issues: patient denies pain, nausea or issues eating. States her appetite has been furious! Instead of eating like a hobbit, I'm eating for the whole christophe!. Tapering steroids now. No concerns to voice Nursing Admission Assessment Malnutrition Score Tool: 1 Plan of Care: Recommendation Continue to monitor weekly and add afternoon snack per patient request Discharge Plan: Home on regular diet MNT Billing Type: Routine Care/15 min 1 unit SIGNATURE: Janel Lau, DTR PATIENT NAME: Paloma Cannon DATE: October 05, 2017 TIME: 2:58 PM PAGER: [phone] CONSULT PROG Observed: 10/05/2017 Status: COMPLETED Source: [place] 2:07 PM [facility] REPOSITORY HNO ID: [id number] Author: Paulette Daniels) Davonte Service: Vascular Medicine Author Type: Nurse Practitioner Type: Consult Progress Note Filed: 10/05/2017 2:11 PM Note Text: VASCMED CONSULT PROGRESS NOTE Subjective Follow Up Regarding: APS, remote HIT INTERVAL HPI and PERTINENT ROS: INR 1.1 hgb 8.4 platelets 121 S: Legs much better after a night of elevation and wraps. Hopeful for dc today, planning a desat study and if ok dc today Current Facility-Administered Medications: predniSONE 5 mg tab(s) (DELTASONE) 5 mg ORAL DAILY gabapentin 400 mg cap(s) (NEURONTIN) 400 mg ORAL DAILY (6 AM) gabapentin 300 mg cap(s) (NEURONTIN) 300 mg ORAL 2 times per day sodium citrate 4% 3-6 mL catheter lock 3-6 mL INTRALUMINAL APHERESIS PRN hydrocortisone sodium succinate (PF) 100 mg injection (Solu- CORTEF) 100 mg INTRAVENOUS APHERESIS fondaparinux 2.5 mg injection (ARIXTRA) 2.5 mg SUBCUTANEOUS q 24 HR insulin regular human injection (short acting) (NovoLIN R,HumuLIN R) SUBCUTANEOUS w MEALS AND HS sodium chloride 0.65 % 2 [place] (AYR, OCEAN) 2 [place] EACH NOSTRIL PRN cyclophosphamide 150 mg cap(s) (CYTOXAN) 150 mg ORAL DAILY sulfamethoxazole-trimethoprim 800-160 mg 1 tablet (BACTRIM DS,SEPTRA DS) 1 tablet ORAL -WE- ondansetron 8 mg tab(s) (ZOFRAN) 8 mg ORAL q 12 H PRN cetirizine 10 mg tab(s) (ZyrTEC) 10 mg ORAL BID amLODIPine 10 mg tab(s) (NORVASC) 10 mg ORAL DAILY pantoprazole DR 40 mg tab(s) (PROTONIX) 40 mg ORAL DAILY (6 AM) dextrose 50% in water 25-50 mL syringe 12.5-25 g INTRAVENOUS PRN dextrose 40 % 15 g 15 g ORAL PRN glucagon 1 mg injection (GLUCAGEN) 1 mg SUBCUTANEOUS PRN acetaminophen 650 mg tab(s) (TYLENOL) 650 mg ORAL/FEEDING TUBE q 6 H PRN And acetaminophen 650 mg suppository (TYLENOL) 650 mg RECTAL q 6 H PRN warfarin order for discharge OTHER PRN Objective PHYSICAL EXAM: BP 135/58 Pulse 109 Temp 36.6 ?C (97.9 ?F) (Oral) Resp 20 Ht 160 cm (5' 3) Wt 101.4 kg (223 lb 8 oz) SpO2 94% BMI 39.59 kg/m2 General: alert and oriented x3 Cardiac: RRR, S1, S2 Respiratory: clear B/L anteriorly Abdominal/GI: soft, non-tender Extremity: trace edema, swelling and redness/warmth much improved after wrapping and elevation Skin: warm, dry Pulse/vascular exam: right + 2 rad/dp left + 2 rad/dp DATA: Diagnostic tests reviewed for today's visit: Most recent labs and imaging results. Most recent labs CBC, Coags, BMP, Mg, Phos Recent Labs 10/05/17 0504 10/04/17 0336 10/03/17 0400 WBC 5.04 5.41 6.38 HB 8.4* 7.8* 8.4* HCT 27.9* 25.8* 27.8* PLT 121* 121* 95* INR 1.1 1.1 1.1 NA 138 138 137 K 4.5 4.6 4.6 CHLOR 101 101 102 CO2 21* 24 22 BUN 41* 35* 28* CREAT 1.28* 1.29* 1.17* GLUC 80 118* 131* CA 8.7 8.6 8.6 MG -- -- 2.0 P 4.1 3.7 3.4 Impression/Recommendations 27 year old female well known to Vas Med service for a hx of APS on long-term AC w/warfarin, IVC thrombosis, w/IVC stent, hepatic vein thrombosis, remote HIT and DAH w/scheduled plasmapheresis. ??Other pertinent past medical history include HF and CKD. ?Her warfarin is followed by given her APS. ?Dr. Andujar manages her APS/plasmapheresis. She presented on evening of 09/29 w/one time episode of hemoptysis after feeling poorly (nausea) and more short of breath w/increased 02 requirements. She is undergoing PLEX and s/p 10/02. Her steroids were increased and she is also getting treatment for UTI. Her 02 was able to be downtitrated to 2L NC. Primary plans a desat study and possible DC today. INR 1.1 Plan discussed w/Dr. Weldon: ok for dc home on prophylactic fondaparinux bridge to warfarin (has syringes on fondaparinux at home) continue fondaparinux 2.5 mg SC daily until told to stop by warfarin 7.5 mg daily , Monday, Monday, 10/05-10/07 warfarin 5 mg Sunday 10/08 check INR Monday 10/09 at lab VM will call and dose INR on Monday CBC/INR daily VM follows her INRs/warfarin outpatient given complexity of dosing/APS/PLEX regimen following along SIGNATURE: Paulette Naranjo APRN.CNP PATIENT NAME: Paloma Cannon DATE: October 05, 2017 TIME: 1:09 PM PAGER/CONTACT #: [phone] . CASE MANAGEM Observed: 10/05/2017 Status: COMPLETED Source: [place] 11:33 AM [facility] REPOSITORY HNO ID: [id number] Author: Cherrie Loaiza (Asst) Service: Care Management Author Type: Resource Center Satellite Tv Technician Installer Type: Care Mgt Progress Note Filed: 10/05/2017 11:34 AM Note Text: CARE MANAGEMENT PROGRESS NOTE SERVICE DATE: 10/05/2017 SERVICE TIME: 11:18 LOS: 6 days IM letter given to patient on 10/05/17. SIGNATURE: Asst Xiomara PATIENT NAME: Paloma Cannon DATE: October 05, 2017 TIME: 11:33 AM PAGER/CONTACT #: [phone] CBC Collected: 10/05/2017 Status: F Source: [place] 5:04 AM [facility] REPOSITORY TYPE CODE TESTS RESULT OUT OF REFERENCE UNITS RANGE LAB WBC 3.70-11.00 k/uL WBC 5.04 LAB RBC 3.90-5.20 m/uL Low RBC 3.08 LAB HGB 11.5-15.5 g/dL Low Hemoglobin 8.4 LAB HCT 36.0-46.0 % Low Hematocrit 27.9 LAB MCV 80.0-100.0 fL MCV 90.6 LAB MCH 26.0-34.0 pG MCH 27.3 LAB MCHC 30.5-36.0 g/dL Low MCHC 30.1 LAB RDWCV 11.5-15.0 % RDW-CV High 20.5 LAB PLTCT 150-400 k/uL Low Platelet Count 121 LAB MPV 9.0-12.7 fL MPV 10.7 LAB ABSNUC <0.01 k/uL Absolute nRBC <0.01 Performed By: #### CBC, PT, BMP, PHOS #### [facility] [address] [place] [id number] PROTIME Collected: 10/05/2017 Status: F Source: [place] 5:04 AM [facility] REPOSITORY TYPE CODE TESTS RESULT OUT OF RANGE REFERENCE UNITS LAB PSEC 9.7-13.0 sec PT Sec 11.2 LAB INR 0.9-1.3 PT INR 1.1 Result Comment: Vitamin K Antagonist (VKA) Therapeutic Range: INR 2 to 3 (Target INR of 2.5) Note: For patients treated with VKA drugs, such as warfarin, the [place] [employer] 2012 Guideline recommends a therapeutic INR range of 2 to 3 (target INR of 2.5). This recommendation includes high-risk patients with antiphospholipid syndrome with previous arterial or venous thromboembolism, current-generation mechanical or bioprosthetic aortic heart valve replacement. Note: Patients with mechanical aortic valve replacement and additional risk factors for thromboembolic events (atrial fibrillation, previous thromboembolism, LV dysfunction, hypercoagulable conditions) or an older generation mechanical AVR (i.e., ball in-Cage) or any mechanical MVR should have a INR therapeutic range of 2.5 to 3.5 (target INR of 3). Michael GH, et al. Chest 2012, 141:7S-47S Diogenes RA, et al. [facility] 2017, 70: 252-289 Performed By: #### CBC, PT, BMP, PHOS #### [facility] [address] [place] [address] BASIC METABOLIC PANL Collected: 10/05/2017 Status: F Source: [place] 5:04 AM [facility] REPOSITORY TYPE CODE TESTS RESULT OUT OF REFERENCE UNITS RANGE LAB GLU 74-99 mg/dL Glucose 80 Result Comment: The [place] [employer] (ADA) provides guidance for cutoff values for fasting glucose and random glucose. The ADA defines fasting as no caloric intake for at least 8 hours. Fas ting plasma glucose results between 100 to 125 mg/dL indicate increased risk for diabetes (prediabetes). Fasting plasma glucose results greater than or equal to 126 mg/dL meet the criteria for diagnosis of diabetes. In the absence of unequivocal hyperglycemia, results should be confirmed by repeat testing. In a patient with classic symptoms of hyperglycemia or hyperglycemic crisis, random plasma glucose results greater than or equal to 200 mg/dL meet the criteria for diagnosis of diabetes. Reference: Standards of Medical Care in Diabetes 2016, [place] [employer]. Diabetes Care. 2016.39(Suppl 1). LAB BUN 7-21 mg/dL BUN High 41 LAB CRET 0.58-0.96 mg/dL Creatinine High 1.28 LAB NA 136-144 mmol/L Sodium 138 LAB K 3.7-5.1 mmol/L Potassium 4.5 LAB CL 97-105 mmol/L Chloride 101 LAB CO2 22-30 mmol/L Low CO2 21 LAB AGAP 9-18 mmol/L Anion Gap 16 LAB CA 8.5-10.2 mg/dL Calcium, Total 8.7 LAB GFRAA eGFR- Amer. >60 LAB GFRNAA . eGFR-All Other Races 50 Result Comment: eGFR (Estimated GFR) Units of measure: mL/min/1.73 meters squared eGFR is derived from the reexpressed MDRD Study equation using the following parameters: serum creatinine, age, gender and race. The creatinine assay has been calibrated to be traceable to IDMS. An eGFR <60 mL/min/1.73m2 for >3 months is consistent with chronic kidney disease. Refer to KDOQI guidelines for clinical interpretation. In patients with unstable renal function, e.g. those with acute kidney injury, the eGFR may not accurately reflect actual GFR. Performed By: #### CBC, PT, BMP, PHOS #### [facility] [address] [place] [id number] PHOSPHORUS Collected: 10/05/2017 Status: F Source: [place] 5:04 AM [facility] REPOSITORY TYPE CODE TESTS RESULT OUT OF REFERENCE UNITS RANGE LAB PHOS 2.7-4.8 mg/dL Phosphorus 4.1 Performed By: #### CBC, PT, BMP, PHOS #### [facility] [address] [place], [place] [address] CONSULT PROG Observed: 10/04/2017 Status: COMPLETED Source: [place] 1:09 PM [facility] REPOSITORY HNO ID: [id number] Author: Paulette Gooden (Bennett Naranjo Service: Vascular Medicine Author Type: Nurse Practitioner Type: Consult Progress Note Filed: 10/04/2017 1:12 PM Note Text: VASCMED CONSULT PROGRESS NOTE Subjective Follow Up Regarding: APS, remote HIT INTERVAL HPI and PERTINENT ROS: INR 1.1 hgb 7.8 platelets 121 S: Sitting up in bed, no recurrent hemoptysis since presentation. 02 down to 2L legs are a little redder than usual, she typically brings her wedge to the hospital w/her but forgot, agreeable to wraps and wedge Current Facility-Administered Medications: warfarin (COUMADIN) tab(s) 7.5 mg 7.5 mg ORAL ONCE - WARFARIN gabapentin 400 mg cap(s) (NEURONTIN) 400 mg ORAL DAILY (6 AM) gabapentin 300 mg cap(s) (NEURONTIN) 300 mg ORAL 2 times per day sodium citrate 4% 3-6 mL catheter lock 3-6 mL INTRALUMINAL APHERESIS PRN hydrocortisone sodium succinate (PF) 100 mg injection (Solu- CORTEF) 100 mg INTRAVENOUS APHERESIS fondaparinux 2.5 mg injection (ARIXTRA) 2.5 mg SUBCUTANEOUS q 24 HR insulin regular human injection (short acting) (NovoLIN R,HumuLIN R) SUBCUTANEOUS w MEALS AND HS sodium chloride 0.65 % 2 [place] (AYR, OCEAN) 2 [place] EACH NOSTRIL PRN cyclophosphamide 150 mg cap(s) (CYTOXAN) 150 mg ORAL DAILY sulfamethoxazole-trimethoprim 800-160 mg 1 tablet (BACTRIM DS,SEPTRA DS) 1 tablet ORAL MO-WE- ondansetron 8 mg tab(s) (ZOFRAN) 8 mg ORAL q 12 H PRN cetirizine 10 mg tab(s) (ZyrTEC) 10 mg ORAL BID amLODIPine 10 mg tab(s) (NORVASC) 10 mg ORAL DAILY pantoprazole DR 40 mg tab(s) (PROTONIX) 40 mg ORAL DAILY (6 AM) dextrose 50% in water 25-50 mL syringe 12.5-25 g INTRAVENOUS PRN dextrose 40 % 15 g 15 g ORAL PRN glucagon 1 mg injection (GLUCAGEN) 1 mg SUBCUTANEOUS PRN acetaminophen 650 mg tab(s) (TYLENOL) 650 mg ORAL/FEEDING TUBE q 6 H PRN And acetaminophen 650 mg suppository (TYLENOL) 650 mg RECTAL q 6 H PRN warfarin order for discharge OTHER PRN Objective PHYSICAL EXAM: BP 139/67 Pulse 103 Temp 36.5 ?C (97.7 ?F) (Oral) Resp 18 Ht 160 cm (5' 3) Wt 96 kg (211 lb 10.3 oz) SpO2 98% BMI 37.49 kg/m2 General: alert and oriented x3 Cardiac: RRR, S1, S2 Respiratory: clear B/L anteriorly Abdominal/GI: soft, non-tender Extremity: mild edema, mild erythema and warmth consistent w/her hx of lymphedema, post thrombotic syndrome, Skin: warm, dry Pulse/vascular exam: right + 2 rad/dp left + 2 rad/dp DATA: Diagnostic tests reviewed for today's visit: Most recent labs and imaging results. Most recent labs CBC, Coags, BMP, Mg, Phos Recent Labs 10/04/17 0336 10/03/17 0400 10/01/17 2352 WBC 5.41 6.38 4.87 HB 7.8* 8.4* 8.1* HCT 25.8* 27.8* 25.5* PLT 121* 95* 64* INR 1.1 1.1 1.2 NA 138 137 133* K 4.6 4.6 4.9 CHLOR 101 102 101 CO2 24 22 21* BUN 35* 28* 22* CREAT 1.29* 1.17* 1.02* GLUC 118* 131* 143* CA 8.6 8.6 8.5 MG -- 2.0 2.0 P 3.7 3.4 3.1 Impression/Recommendations 27 year old female well known to [facility] service for a hx of APS on long-term AC w/warfarin, IVC thrombosis, w/IVC stent, hepatic vein thrombosis, remote HIT and DAH w/scheduled plasmapheresis. ??Other pertinent past medical history include HF and CKD. ?Her warfarin is followed by given her APS. ?Dr. Andujar manages her APS/plasmapheresis. She presented on evening of 09/29 w/one time episode of hemoptysis after feeling poorly (nausea) and more short of breath w/increased 02 requirements. She is undergoing PLEX and s/p 10/02. Her steroids were increased and she is also getting treatment for UTI. Her 02 was able to be downtitrated today to 2L NC, at home most recently she was on RA during the day only required 2L at night. Plan discussed w/Dr. Weldon: continue fondaparinux 2.5 mg SC daily for DVT prophylaxis warfarin 7.5 mg tonight will continue prophylactic fondaparinux until INR >2 (pt has supply of 6 syringes at home) monitor for recurrent hemoptysis CBC/INR daily VM follows her INRs/warfarin outpatient given complexity of dosing/APS/PLEX regimen following along has hx of chronic lymphedema well controlled w/wraps and elevation please wrap B/L LE from base to toes to just below the knee daily w/HEATHER Wedge ordered SIGNATURE: Paulette Naranjo APRN.CNP PATIENT NAME: Paloma Cannon DATE: October 04, 2017 TIME: 1:09 PM PAGER/CONTACT #: [phone] . PROGRESS Observed: 10/04/2017 Status: COMPLETED Source: [place] 8:01 AM [facility] REPOSITORY HNO ID: [id number] Author: Ameena Mendez MD Service: Hospital Medicine Author Type: Physician Type: Progress Notes Filed: 10/04/2017 4:21 PM Note Text: DEPARTMENT OF HOSPITAL MEDICINE PROGRESS NOTE SERVICE DATE: 10/04/2017 SERVICE TIME: 8:01 AM Hospital Medicine/Primary Attending: Ameena Mendez MD NIGHT AND WEEKEND COVERAGE: Days: [phone], please page me for patient issues. Nights: [phone], please page Team [email or web address]; overnight coverage pager [phone] Subjective INTERVAL HPI: No acute events overnight. Patient has been able to decrease her supplemental O2 to 2L without feeling more SOB. She is no longer having dysuria. When discussing decreasing her steroid dose the patient notes difficulty with abruptly decreasing her dose in the past. MEDICATIONS: Reviewed Objective PHYSICAL EXAM: BP 139/67 Pulse 103 Temp (Src) 97.7 (Oral) Resp 18 Ht 5' 3 (1.60m) Wt 211 lb 10.3 oz (96.0kg) SpO2 98% BMI 37.50 kg/(m2). Physical Exam Performed GENERAL: Alert, obese female ,sitting comfortably in bed, in NAD SKIN: Warm, dry, no lesions or rashes noted HEAD/SINUSES: Normocephalic, atraumatic LUNGS: CTAB, no increased wob. 4L O2 via NC CARDIAC: RRR, normal S1/S2, no murmurs ABDOMEN: Soft, NT, ND EXTREMITIES: Trace pitting edema and erythema present in bilateral LE NEURO: AANDOx3, strength and sensation grossly normal PULSES: 2+ radial Lines, Drains, and Airways Line Central Line Single Lumen 09/29/17 Tunneled Left Chest 5 days Dialysis / Apheresis Double Lumen 09/29/17 Admission to Hospital Tunneled Left Chest 5 days Reviewed lines, drains, AND airways. Need to be continued for now DATA: Diagnostic tests reviewed for today's visit: Most recent labs and imaging results. 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 Warfarin was held d/t concern for bleed and she was placed on fondaparinx for DVT prophylaxis (hx of HIT). Admitted to the MICU and was stable there, no additional hemoptysis, but still with an increased supplemental O2 requirement. Updates to A/P for the day: -Will discuss with hematology about decreasing Prednisone back to her home 5 mg qD vs. tapering -Increase warfarin to 7.5 mg today, continue following INR -SCr slightly increased to 1.29 today. Received torsemide yesterday. Will hold for now. 1. Hemoptysis -Hx of diffuse alveolar hemorrhage (at least 5 acute episodes), on cyclophosphamide. This was briefly d/c'ed for recent CLABSI but was restarted on 09/11/2017. -Has not had additional hemoptysis since presentation -Hb has been low but stable, near her baseline -CXR showing diffuse bilateral airspace opacities, which may represent alveolar hemorrhage as seen on recent chest CT Plan -Continue warfarin, day 2 today, increase to 7.5 mg, and follow INR (1.1 today) -Continue fondaparinux 2.5 mg SC qD for DVT prophylaxis. Are not bridging -Continue cyclophosphamide 2. Hypoxic respiratory failure -At baseline patient is on 2L O2 at night, no O2 during the day -Have decreased need from 4L to 2L O2 today Plan -Continuous pulse oximetry -Wean O2 as tolerated, goal to get back to her baseline if possible -RT following 3. Anti-phospholipid syndrome -Was diagnosed in 2013 after presented with PE/DVT requiring thrombectomy of her IVC and LE veins, placement of bilateral iliac stents and endograft into her IVC -Is Triple positive (+lupus anticoagulant, +nnsq-h2-jxuzqmtczttf, and +anti-cardiolipin) -Failed Rituximab treatment 2/2 cardiotoxicity -Receives plasmapheresis q2 weeks and prednisone 5 mg qD. -Has been on an increased dose of Prednisone, 80 mg qD, this admission. -Hx of HIT in the past, platelets 121 today -Received PLEX on 10/02 Plan -Will discuss with hematology about decreasing Prednisone back to her home 5 mg qD vs. tapering -Hematology and vascular medicine following, appreciate recs -Anti-coagulation as above 4. Dysuria (resolved) -Was endorsing dysuria, which is now resolved -UA is negative, urine Cx NGTD -Discontinued macrobid, pyridium. No evidence of UTI 5. CKD, Stage II -Baseline SCr ~1.1, has been stable this admission Plan -Renally dose medications -Avoid nephrotoxins 6. HFpEF -No evidence of acute exacerbation. Patient has not been receiving her home torsemide this admission -Echo from 08/29/17 with EF 50%, LV dilation -Patient with some LE edema but this is likely 2/2 post-phlebitic syndrome rather than HF exacerbation Plan -SCr increased to 1.29 s/p torsemide yesterday. Will hold for now -Daily weights 7. HTN -Well controlled, on amlodipine at home Plan -Continue home amlodipine 8. Peripheral neuropathy -Takes gabapentin at home for neuropathic pain -Was taking 300 mg TID this admission -Per patient she takes more at home and her pain has been worse recently Plan -Increased to home regimen, 400 mg qAM, then 300 mg in afternoon and evening VTE Prophylaxis: Fondaparinux 2.5 mg q24h Disposition: Home Plan of care discussed with: Patient SIGNATURE: Sanchez Quiros MD PATIENT NAME: Paloma Cannon DATE: October 04, 2017 TIME: 8:01 AM PAGER/CONTACT #: [phone] nwd [phone] ? DR. FRED STONE, SR. HOSPITAL STAFF PHYSICIAN NOTE OF PERSONAL INVOLVEMENT IN CARE ? I have reviewed the progress note obtained and documented by the resident and I personally participated in the fernandes components. I have discussed the case and management of the patient's care. The following comments revise or confirm relevant fernandes components of their note. ? 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 ? ? Got plx in icu . ? PLAN: -warfarin restarted yesterday with ppx fondaparinux -Continue cyclophosphamide -steroids weaned off to home dose by hematology -holding torsemide -wean off to home oxygen ? CARE COORDINATION: The majority of the visit was spent counseling and/or coordinating care for the patient. Ameena Mendez MD October 04, 2017 4:21 PM NURSING PROG Observed: 10/04/2017 Status: COMPLETED Source: [place] 4:20 AM [facility] REPOSITORY HNO ID: [id number] Author: Clayton Sauer) JEFF Krishnamurthy Service: Nursing Author Type: Registered Nurse Type: Nursing Progress Note Filed: 10/04/2017 4:21 AM Note Text: Nursing Progress Note Patient Name: Paloma Cannon Patient Location: [place] [address]- Event(s) / Intervention Note: The patient was observed having the following problems: drop in H/H from 8.6/27.8 to 7.8/25.8 The time of the event occurred at: 0420. The following intervention(s) were initiated: [place] [phone]. After the initiated interventions, the following observation(s) were made: nothing further noted. Will continue to observe and check with patient. This note was completed by: Clayton Krishnamurthy RN CBC Collected: 10/04/2017 Status: F Source: [place] 3:36 AM [facility] REPOSITORY TYPE CODE TESTS RESULT OUT OF REFERENCE UNITS RANGE LAB WBC 3.70-11.00 k/uL WBC 5.41 LAB RBC 3.90-5.20 m/uL Low RBC 2.85 LAB HGB 11.5-15.5 g/dL Low Hemoglobin 7.8 LAB HCT 36.0-46.0 % Low Hematocrit 25.8 LAB MCV 80.0-100.0 fL MCV 90.5 LAB MCH 26.0-34.0 pG MCH 27.4 LAB MCHC 30.5-36.0 g/dL Low MCHC 30.2 LAB RDWCV 11.5-15.0 % RDW-CV High 20.3 LAB PLTCT 150-400 k/uL Low Platelet Count 121 LAB MPV 9.0-12.7 fL MPV 12.0 LAB ABSNUC <0.01 k/uL Absolute nRBC <0.01 Performed By: #### CBC, PT, BMP, PHOS #### [facility] [address] [place], [place] [address] PROTIME Collected: 10/04/2017 Status: F Source: [place] 3:36 AM [facility] REPOSITORY TYPE CODE TESTS RESULT OUT OF RANGE REFERENCE UNITS LAB PSEC 9.7-13.0 sec PT Sec 11.0 LAB INR 0.9-1.3 PT INR 1.1 Result Comment: Vitamin K Antagonist (VKA) Therapeutic Range: INR 2 to 3 (Target INR of 2.5) Note: For patients treated with VKA drugs, such as warfarin, the [place] [employer] 2012 Guideline recommends a therapeutic INR range of 2 to 3 (target INR of 2.5). This recommendation includes high-risk patients with antiphospholipid syndrome with previous arterial or venous thromboembolism, current-generation mechanical or bioprosthetic aortic heart valve replacement. Note: Patients with mechanical aortic valve replacement and additional risk factors for thromboembolic events (atrial fibrillation, previous thromboembolism, LV dysfunction, hypercoagulable conditions) or an older generation mechanical AVR (i.e., ball in-Cage) or any mechanical MVR should have a INR therapeutic range of 2.5 to 3.5 (target INR of 3). Michael PLASENCIA, et al. Chest 2012, 141:7S-47S Diogenes RA, et al. [facility] 2017, 70: 252-289 Performed By: #### CBC, PT, BMP, PHOS #### [facility] [address] [place] [id number] BASIC METABOLIC PANL Collected: 10/04/2017 Status: F Source: [place] 3:36 AM [facility] REPOSITORY TYPE CODE TESTS RESULT OUT OF REFERENCE UNITS RANGE LAB GLU 74-99 mg/dL High Glucose 118 Result Comment: The [place] Diabetes Association (ADA) provides guidance for cutoff values for fasting glucose and random glucose. The ADA defines fasting as no caloric intake for at least 8 hours. Fas ting plasma glucose results between 100 to 125 mg/dL indicate increased risk for diabetes (prediabetes). Fasting plasma glucose results greater than or equal to 126 mg/dL meet the criteria for diagnosis of diabetes. In the absence of unequivocal hyperglycemia, results should be confirmed by repeat testing. In a patient with classic symptoms of hyperglycemia or hyperglycemic crisis, random plasma glucose results greater than or equal to 200 mg/dL meet the criteria for diagnosis of diabetes. Reference: Standards of Medical Care in Diabetes 2016, [place] [employer] Association. Diabetes Care. 2016.39(Suppl 1). LAB BUN 7-21 mg/dL BUN High 35 LAB CRET 0.58-0.96 mg/dL Creatinine High 1.29 LAB NA 136-144 mmol/L Sodium 138 LAB K 3.7-5.1 mmol/L Potassium 4.6 LAB CL 97-105 mmol/L Chloride 101 LAB CO2 22-30 mmol/L CO2 24 LAB AGAP 9-18 mmol/L Anion Gap 13 LAB CA 8.5-10.2 mg/dL Calcium, Total 8.6 LAB GFRAA eGFR- Amer. 60 LAB GFRNAA . eGFR-All Other Races 49 Result Comment: eGFR (Estimated GFR) Units of measure: mL/min/1.73 meters squared eGFR is derived from the reexpressed MDRD Study equation using the following parameters: serum creatinine, age, gender and race. The creatinine assay has been calibrated to be traceable to IDMS. An eGFR <60 mL/min/1.73m2 for >3 months is consistent with chronic kidney disease. Refer to KDOQI guidelines for clinical interpretation. In patients with unstable renal function, e.g. those with acute kidney injury, the eGFR may not accurately reflect actual GFR. Performed By: #### CBC, PT, BMP, PHOS #### [facility] [address] [place], [place] [address] PHOSPHORUS Collected: 10/04/2017 Status: F Source: [place] 3:36 AM [facility] REPOSITORY TYPE CODE TESTS RESULT OUT OF REFERENCE UNITS RANGE LAB PHOS 2.7-4.8 mg/dL Phosphorus 3.7 Performed By: #### CBC, PT, BMP, PHOS #### [facility] [address] [place], [place] [address] CASE MGT INIT Observed: 10/03/2017 Status: COMPLETED Source: [place] 1:07 PM [facility] REPOSITORY HNO ID: [id number] Author: Candie (Rn) JEFF Williamson Service: Care Management Author Type: Registered Nurse Type: Care Mgt Initial Assessment Filed: 10/03/2017 1:16 PM Note Text: CARE MANAGEMENT: ASSESSMENT AND DISCHARGE PLAN SERVICE DATE: 10/03/2017 SERVICE TIME: 1:07 PM PRIMARY CARE PHYSICIAN: PEYTON ROGERS MD ADMISSION STATUS: Inpatient Needs Prior to Discharge: To Be Determined MEDICAL: Patient/Cyanide Case Hardener Stated Goals: To have reduction in symptoms To improve my functional status To return home to life as it was Health Insurance: MEDICARE A AND B Medicare, Medicaid Health Issues Impacting Discharge Plan: Hemoptysis Last Admission Date: Previous admit date: 08/25/2017 Is this Within the Past 30 days? No Advance Directive: Current Advance Directive: Health Care Power of Jacquard Card Lacer In Chart: No Comb Tender Assisted with AD Completion: No Unable to Assist Due To:: Other: See Comment (Morteza Cannon (Spouse) POA- Forms @ home) Health Literacy: 1. How often do you need to have someone help you when you read instructions, pamphlets, or other written material from your doctor or pharmacy? Never - 1 2. How confident are you filling out medical forms by yourself? Extremely - 1 If Patient scores > 3 on either question, the following interventions were put into place: Patient did not score > 3 FUNCTIONAL AND COGNITIVE/BEHAVIORAL PRIOR TO ADMISSION: Baseline Mental Status: Alert AND Oriented, Person, Place , Time and Situation Functional Status: Independent Does Patient Currently Receive Any Community Services or Home Care? None Equipment Prior to Admission: Oxygen 2 liters per minute Has the Patient Been in a Jail Facility in the Past 30 days? No SOCIAL: Living Arrangement: Apartment Lives With: Spouse Financial Resources: Disabled Primary Contact: Extended Emergency Contact Information Primary Emergency Contact: Morteza Cannon Address: [address] [place] [address] [address] [place] [address] [facility] Mobile Relation: Spouse Secondary Emergency Contact: Morgan Aiken Mobile Relation: Father Mother: Jane Aiken Supportive: Yes Other Important Patient Contacts: None Caregiver Assessment: Caregiver is ready, willing and able to meet the patient's needs as recommended by the inter-professional team? No Caregiver Needed Patient's transition needs and plan for meeting these needs: TBD Does the patient have an acute stroke diagnosis, or has the patient had a stroke during this admission? No Medication Adherence: I am convinced of the importance of my prescription medication: Agree completely - 0 I worry that my prescription medication will do more harm than good to me Disagree completely - 0 I feel financially burdened by my [id number] expenses for my prescription medication: Disagree completely - 0 Patient is categorized as low risk < 2 Are you interested in bedside delivery of your medications? No Food Concerns: In the Last Month, Have You had Trouble Getting Food? No trouble getting food During the Last Month, Have You Worried Whether Your Food Would Run Out Before You Had Enough Money to Buy More? No Is the Patient Psychosocially Complex? No ASSESSMENT AND PLAN: Medical Needs: 2 or more chronic diseases Psychosocial Needs: None FREEDOM OF CHOICE EXPLAINED: Yes Patient Denies skilled home care needs POTENTIAL TRANSITION PLANS Home CM to bedside for introduction and to discuss discharge plans and needs. Patient lives with in an Apartment. On oxygen 2 liters @ night, supplied by [employer] (DME). Patient stated has enough supply. Anticipated discharge plan is home with no skilled home care needs. Pt denies any new questions or concerns at this time. CM will continue to follow and update on discharge plans and needs. Upon discharge family will provide transport. SIGNATURE: Candie Williamson RN PATIENT NAME: Paloma Cannon DATE: October 03, 2017 TIME: 1:07 PM PAGER/CONTACT #: [phone] CONSULT PROG Observed: 10/03/2017 Status: COMPLETED Source: [place] 12:33 PM [facility] REPOSITORY HNO ID: [id number] Author: Paulette Gooden (Cinder Crane Operator) LORRAINE Naranjo.ELLIOTT Service: Vascular Medicine Author Type: Nurse Practitioner Type: Consult Progress Note Filed: 10/03/2017 12:36 PM Note Text: VASCMED CONSULT PROGRESS NOTE Subjective Follow Up Regarding: APS, remote HIT INTERVAL HPI and PERTINENT ROS: INR 1.1 hgb 8.4 platelets 95 S: Sitting up in bed, no recurrent hemoptysis since presentation. Has not able to wean oxygen down any further. Current Facility-Administered Medications: sodium citrate 4% 3-6 mL catheter lock 3-6 mL INTRALUMINAL APHERESIS PRN hydrocortisone sodium succinate (PF) 100 mg injection (Solu- CORTEF) 100 mg INTRAVENOUS APHERESIS fondaparinux 2.5 mg injection (ARIXTRA) 2.5 mg SUBCUTANEOUS q 24 HR nitrofurantoin monohydrate and macrocrystal 100 mg cap(s) (MACROBID) 100 mg ORAL BID w MEALS phenazopyridine 200 mg tab(s) (PYRIDIUM, GERIDIUM) 200 mg ORAL TID after MEALS insulin regular human injection (short acting) (NovoLIN R,HumuLIN R) SUBCUTANEOUS w MEALS AND HS sodium chloride 0.65 % 2 [place] (AYR, OCEAN) 2 [place] EACH NOSTRIL PRN gabapentin 300 mg cap(s) (NEURONTIN) 300 mg ORAL q 8 H cyclophosphamide 150 mg cap(s) (CYTOXAN) 150 mg ORAL DAILY sulfamethoxazole-trimethoprim 800-160 mg 1 tablet (BACTRIM DS,SEPTRA DS) 1 tablet ORAL ondansetron 8 mg tab(s) (ZOFRAN) 8 mg ORAL q 12 H PRN cetirizine 10 mg tab(s) (ZyrTEC) 10 mg ORAL BID amLODIPine 10 mg tab(s) (NORVASC) 10 mg ORAL DAILY pantoprazole DR 40 mg tab(s) (PROTONIX) 40 mg ORAL DAILY (6 AM) dextrose 50% in water 25-50 mL syringe 12.5-25 g INTRAVENOUS PRN dextrose 40 % 15 g 15 g ORAL PRN glucagon 1 mg injection (GLUCAGEN) 1 mg SUBCUTANEOUS PRN acetaminophen 650 mg tab(s) (TYLENOL) 650 mg ORAL/FEEDING TUBE q 6 H PRN And acetaminophen 650 mg suppository (TYLENOL) 650 mg RECTAL q 6 H PRN warfarin order for discharge OTHER PRN predniSONE 80 mg tab(s) (DELTASONE) 80 mg ORAL DAILY Objective PHYSICAL EXAM: BP 137/63 Pulse 108 Temp 36.7 ?C (98 ?F) (Oral) Resp 22 Ht 160 cm (5' 3) Wt 96.2 kg (212 lb 1.3 oz) SpO2 100% BMI 37.57 kg/m2 General: alert and oriented x3 Cardiac: RRR, S1, S2 Respiratory: clear B/L anteriorly Abdominal/GI: soft, non-tender Extremity: trace edema, chronic skin changes B/L Skin: warm, dry Pulse/vascular exam: right + 2 rad/dp left + 2 rad/dp DATA: Diagnostic tests reviewed for today's visit: Most recent labs and imaging results. Most recent labs CBC, Coags, BMP, Mg, Phos Recent Labs 10/03/17 0400 10/01/17 2352 10/01/17 0026 WBC 6.38 4.87 3.85 HB 8.4* 8.1* 7.6* HCT 27.8* 25.5* 24.6* PLT 95* 64* 56* INR 1.1 1.2 1.5* NA 137 133* 136 K 4.6 4.9 4.1 CHLOR 102 101 99 CO2 22 21* 22 BUN 28* 22* 20 CREAT 1.17* 1.02* 1.15* GLUC 131* 143* 98 CA 8.6 8.5 8.0* MG 2.0 2.0 -- P 3.4 3.1 -- Impression/Recommendations 27 year old female well known to [facility] service for a hx of APS on long-term AC w/warfarin, IVC thrombosis, w/IVC stent, hepatic vein thrombosis, remote HIT and DAH w/scheduled plasmapheresis. ??Other pertinent past medical history include HF and CKD. ?Her warfarin is followed by given her APS. ?Dr. Andujar manages her APS/plasmapheresis. She presented on evening of 09/29 w/one time episode of hemoptysis after feeling poorly (nausea) and more short of breath w/increased 02 requirements. She is undergoing PLEX and s/p 10/02. Her steroids were increased and she is also getting treatment for UTI. She remains on 4L NC, at home most recently she only required 2L at night. Plan discussed w/Dr. Weldon: continue fondaparinux 2.5 mg SC daily for DVT prophylaxis begin warfarin 5 mg tonight will continue prophylactic fondaparinux until INR >2 monitor for recurrent hemoptysis, if continues to not have any can increase warfarin to home dose tomorrow. CBC/INR daily VM follows her INRs/warfarin outpatient given complexity of dosing/APS/PLEX regimen following along SIGNATURE: Paulette Naranjo APRN.ELLIOTT PATIENT NAME: Paloma Cannon DATE: October 03, 2017 TIME: 12:33 PM PAGER/CONTACT #: [phone] . PROGRESS Observed: 10/03/2017 Status: COMPLETED Source: [place] 11:39 AM [facility] REPOSITORY HNO ID: [id number] Author: Ameena Mendez MD Service: Hospital Medicine Author Type: Physician Type: Progress Notes Filed: 10/03/2017 5:34 PM Note Text: DEPARTMENT OF HOSPITAL MEDICINE PROGRESS NOTE SERVICE DATE: 10/03/2017 SERVICE TIME: 11:39 AM Hospital Medicine/Primary Attending: Ameena Mendez MD NIGHT AND WEEKEND COVERAGE: Days: [phone], please page me for patient issues. Nights: [phone], please page Team [email or web address]; overnight coverage pager [phone] Subjective INTERVAL HPI: No acute events overnight. Per patient her only new complaint is that she is having some increased neuropathic pain. Has only been taking Gabapentin 300 mg TID here and she normally takes 400 mg qAM and then 300 mg in the afternoon and evening. She is still requiring supplemental O2 to maintain her saturations during the day, which is abnormal for her. Also endorses continued dysuria. MEDICATIONS: Reviewed Objective PHYSICAL EXAM: BP 137/63 Pulse 108 Temp (Src) 98 (Oral) Resp 22 Ht 5' 3 (1.60m) Wt 212 lb 1.3 oz (96.2kg) SpO2 100% BMI 37.58 kg/(m2). Physical Exam Performed GENERAL: Alert, obese female ,sitting comfortably in bed, in NAD SKIN: Warm, dry, no lesions or rashes noted HEAD/SINUSES: Normocephalic, atraumatic LUNGS: CTAB, no increased wob. 4L O2 via NC CARDIAC: RRR, normal S1/S2, no murmurs ABDOMEN: Soft, NT, ND EXTREMITIES: Trace pitting edema and erythema present in bilateral LE NEURO: AANDOx3, strength and sensation grossly normal PULSES: 2+ radial Lines, Drains, and Airways Line Central Line Single Lumen 09/29/17 Tunneled Left Chest 4 days Dialysis / Apheresis Double Lumen 09/29/17 Admission to Hospital Tunneled Left Chest 4 days Reviewed lines, drains, AND airways. Need to be continued for now DATA: Diagnostic tests reviewed for today's visit: Most recent labs and imaging results. 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 Warfarin was held d/t concern for bleed and she was placed on fondaparinx for DVT prophylaxis (hx of HIT). Admitted to the MICU and was stable there, no additional hemoptysis, but still with an increased supplemental O2 requirement. 1. Hemoptysis -Hx of diffuse alveolar hemorrhage (at least 5 acute episodes), on cyclophosphamide. This was briefly d/c'ed for recent CLABSI but was restarted on 09/11/2017. -Has not had additional hemoptysis since presentation -Hb has been low but stable, near her baseline -CXR showing diffuse bilateral airspace opacities, which may represent alveolar hemorrhage as seen on recent chest CT Plan -Will restart warfarin today, 5 mg, and follow INR -Continue fondaparinux for DVT prophylaxis. Are not bridging -Continue cyclophosphamide 2. Hypoxic respiratory failure -At baseline patient is on 2L O2 at night, no O2 during the day -Still requiring 4L O2 during the day to maintain her sats Plan -Continuous pulse oximetry -Wean O2 as tolerated, goal to get back to her baseline -RT following 3. Anti-phospholipid syndrome -Was diagnosed in 2013 after presented with PE/DVT requiring thrombectomy of her IVC and LE veins, placement of bilateral iliac stents and endograft into her IVC -Is Triple positive (+lupus anticoagulant, +[id number]-[id number]-dwubtnqytlnn, and +anti-cardiolipin) -Failed Rituximab treatment 2/2 cardiotoxicity -Receives plasmapheresis q2 weeks and prednisone 5 mg qD -Hx of HIT -Received PLEX today Plan -Continue increased dose of prednisone, 80 mg qD -Hematology and vascular medicine following, appreciate recs -Anti-coagulation as above 4. Dysuria -Endorsing dysuria, UA is negative, urine Cx NGTD Plan -Discontinue macrobid, pyridium. No evidence of UTI 5. CKD -Baseline SCr ~1.1, has been stable this admission Plan -Renally dose medications -Avoid nephrotoxins 6. HFpEF -No evidence of acute exacerbation. Patient has not been receiving her home torsemide this admission -Echo from 08/29/17 with EF 50%, LV dilation -Patient with some LE edema but this is likely 2/2 post-phlebitic syndrome rather than HF exacerbation Plan -Given 20 mg torsemide today -Daily weights 7. HTN -Well controlled, on amlodipine at home Plan -Continue home amlodipine 8. Peripheral neuropathy -Takes gabapentin at home for neuropathic pain -Was taking 300 mg TID this admission -Per patient she takes more at home and her pain has been worse recently Plan -Increased to home regimen, 400 mg qAM, then 300 mg in afternoon and evening VTE Prophylaxis: Fondaparinux 2.5 mg q24h Disposition: Home Plan of care discussed with: Patient SIGNATURE: Sanchez Quiros MD PATIENT NAME: Paloma Cannon DATE: October 03, 2017 TIME: 11:39 AM PAGER/CONTACT #: [phone] FRED STONE, SR. HOSPITAL STAFF PHYSICIAN NOTE OF PERSONAL INVOLVEMENT IN CARE I have reviewed the progress note obtained and documented by the resident and I personally participated in the fernandes components. I have discussed the case and management of the patient's care. The following comments revise or confirm relevant fernandes components of their note. 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 -resumed home torsemide today -wean off to home oxygen CARE COORDINATION: The majority of the visit was spent counseling and/or coordinating care for the patient. Fakt-vo-excw time was 20 minutes SIGNATURE: Ameena Mendez MD PAGER:[phone] DATE of SERVICE: 10/03/2017 TIME of SERVICE: 5:34 PM PT ED Observed: 10/03/2017 Status: COMPLETED Source: [place] 10:39 AM [facility] REPOSITORY HNO ID: [id number] Author: Rita Provider Service: (none) Author Type: Physician Type: Patient Education Filed: 10/03/2017 10:39 AM Note Text: [facility] Patient Education Report --------- Name: PALOMA CANNON Date: 10/03/2017 Time: 10:38 AM Patient Ordered Video: Inpatient Falls from [id number] via phone number [phone] at 10:38 AM PLAN OF CARE Observed: 10/03/2017 Status: COMPLETED Source: [place] 10:29 AM [facility] REPOSITORY HNO ID: [id number] Author: Onofre Crawley (Fur Comber) Service: Pharmacy Author Type: Pharmacist Type: Plan of Care Filed: 10/03/2017 11:57 AM Note Text: MEDICATION RECONCILIATION Patient Name:.Paloma Cannon : 1990 Reconciliation: Yes Medications intentionally held at admission: warfarin. Notified LIP of accurate home dosage of gabapentin, recommended to update active medication orders Additional comments: N/A Allergies: ALLERGIES Allergen Reactions - Rhubarb Rash, Hives - Heparin Other: See Comments Per patient history of HIT - was on angiomax however then took l fondaparinux for bridging to coumadin. - Iv Contrast [Iodine] Other: See Comments shuts kidneys down per patient - Rituximab Other: See Comments Elevated cardiac enzymes Preferred Pharmacy: [facility] [place] [facility] Current [employer] Medications: Prior to Admission medications as of 10/03/17 0743 Medication Sig Last Dose Taking fondaparinux (ARIXTRA) 2.5 mg/0.5 mL syrg Inject 2.5 mg subcutaneously q 24 HR. Short term medication to cover while warfarin was on hold Yes torsemide (DEMADEX) 20 mg tablet Take 20 mg by mouth once daily as needed (takes 20-60 mg as needed for chronic edema). Yes gabapentin (NEURONTIN) 300 mg capsule Take 400mg in the morning Take 300 mg in the afternoon Take 300mg in the evening 09/29/2017 at Unknown time Yes cyclophosphamide (CYTOXAN) 50 mg capsule Take 3 capsules by mouth once daily. 09/29/2017 at Unknown time Yes predniSONE (DELTASONE) 5 mg tablet Take 1 tablet by mouth once daily. 09/29/2017 at Unknown time Yes warfarin (COUMADIN) 2.5 mg tablet take by mouth as directed in the evening to keep INR between 2.0-3.0 09/28/2017 at Unknown time Yes amLODIPine (NORVASC) 5 mg tablet Take 1 tablet by mouth twice daily. HOLD FOR SBP <120 09/29/2017 at Unknown time Yes sulfamethoxazole-trimethoprim (BACTRIM DS) 800-160 mg per tablet Take 1 tablet by mouth every Monday,Monday,Monday. 09/29/2017 at Unknown time Yes pantoprazole DR (PROTONIX) 40 mg tablet Take 1 tablet by mouth DAILY (6 AM). Patient taking differently: Take 40 mg by mouth every evening. 09/28/2017 at Unknown time Yes cetirizine 10 mg tablet Take 10 mg by mouth twice daily. 09/29/2017 at Unknown time Yes ondansetron (ZOFRAN, HYDROCHLORIDE,) 8 mg tablet Take 8 mg by mouth every 8 hours as needed for Nausea/Vomiting. Unknown at Unknown time fluticasone (FLONASE) 50 mcg/actuation nasal spray Use 1-2 Sprays in each nostril once daily as needed for Cold/Allergy Symptoms (starting in allergy season). Unknown at Unknown time senna 8.6 mg tab Take 1 tablet by mouth twice daily as needed. Unknown at Unknown time ONOFRE CRAWLEY, CONFERENCE TRANSLATOR [id number] October 03, 2017 10:29 AM PLAN OF CARE Observed: 10/03/2017 Status: COMPLETED Source: [place] 10:02 AM [facility] REPOSITORY HNO ID: [id number] Author: Onofre Crawley (Fur Comber) Service: Pharmacy Author Type: Pharmacist Type: Plan of Care Filed: 10/03/2017 10:25 AM Note Text: MEDICATION HISTORY Patient Name:.Paloma Cannon : 1990 Source of history:Patient: Reliability of source: Appears reliable, clearly identified: Medication name, Medication dose, Medication route and Medication frequency and EPIC dispense report records Medication Nonadherence Identified: No barriers noted The above information represents the best possible medication history: Yes Additional comments: ? Medications to add to [employer] med list ? Fondaparinux 2.5 mg/0.5 mL injection - inject subcutaneously once daily. Bridge from warfarin. ? Torsemide 20 mg tablets scheduled daily - takes up to 60 mg total as needed for chronic edema ? [employer] list medication changes ? Patient takes amlodipine 5 mg tablets twice daily ? Patient does not take Flonase year-round, but will take 1-2 sprays in each nostril daily starting in allergy season ? Patient reports taking ondansetron 8 mg q8h prn nausea ? Patient takes pantoprazole in the evening ? Before being admitted inpatient, patient's warfarin therapy was on hold due to PLEX treatment- previously on 5 mg daily ? Patient was taking gabapentin 100 mg capsules - up to 400 mg in the morning and 300 mg in the afternoon and evening. Patient would increase or decrease dose based on pain Allergies: ALLERGIES Allergen Reactions - Rhubarb Rash, Hives - Heparin Other: See Comments Per patient history of HIT - was on angiomax however then took l fondaparinux for bridging to coumadin. - Iv Contrast [Iodine] Other: See Comments shuts kidneys down per patient - Rituximab Other: See Comments Elevated cardiac enzymes Preferred Pharmacy: [facility] [place] [facility] Current [employer] Medications: Prior to Admission medications as of 10/03/17 0743 Medication Sig Last Dose Taking gabapentin (NEURONTIN) 300 mg capsule Take 400mg in the morning Take 300 mg in the afternoon Take 300mg in the evening 09/29/2017 at Unknown time Yes cyclophosphamide (CYTOXAN) 50 mg capsule Take 3 capsules by mouth once daily. 09/29/2017 at Unknown time Yes predniSONE (DELTASONE) 5 mg tablet Take 1 tablet by mouth once daily. 09/29/2017 at Unknown time Yes warfarin (COUMADIN) 2.5 mg tablet take by mouth as directed in the evening to keep INR between 2.0-3.0 09/28/2017 at Unknown time Yes amLODIPine (NORVASC) 5 mg tablet Take 1 tablet by mouth twice daily. HOLD FOR SBP <120 09/29/2017 at Unknown time Yes sulfamethoxazole-trimethoprim (BACTRIM DS) 800-160 mg per tablet Take 1 tablet by mouth every Monday,Monday,Monday. 09/29/2017 at Unknown time Yes pantoprazole DR (PROTONIX) 40 mg tablet Take 1 tablet by mouth DAILY. 09/28/2017 at Unknown time Yes cetirizine 10 mg tablet Take 10 mg by mouth twice daily. 09/29/2017 at Unknown time Yes ondansetron (ZOFRAN, HYDROCHLORIDE,) 8 mg tablet Take 1 tablet by mouth every 12 hours as needed for Nausea/Vomiting. Unknown at Unknown time fluticasone (FLONASE) 50 mcg/actuation nasal spray Use 1 [place] in each nostril once daily. Unknown at Unknown time senna 8.6 mg tab Take 1 tablet by mouth twice daily as needed. Unknown at Unknown time Fany Lion (Ammonium Hydroxide Operator) October 03, 2017 10:03 AM ONOFRE CRAWLEY, CONFERENCE TRANSLATOR [id number] 10/03/17 10:17 AM CONSULT PROG Observed: 10/03/2017 Status: COMPLETED Source: [place] 9:25 AM [facility] REPOSITORY HNO ID: [id number] Author: Justina Pollard (Pa) Service: Hematology Author Type: Physician Satellite Tv Technician Installer Type: Consult Progress Note Filed: 10/03/2017 2:49 PM Note Text: CONSULT PROGRESS NOTE SERVICE DATE: 10/03/2017 CONSULTING SERVICE: Hmeatology Subjective INTERVAL HPI: Doing well with no further hemoptysis Underwent scheduled PLEx yesterday PLT count improving Vascular medicine team is following for AC management Current hospital medications: sodium citrate 4% 3-6 mL catheter lock 3-6 mL INTRALUMINAL APHERESIS PRN hydrocortisone sodium succinate (PF) 100 mg injection (Solu- CORTEF) 100 mg INTRAVENOUS APHERESIS fondaparinux 2.5 mg injection (ARIXTRA) 2.5 mg SUBCUTANEOUS q 24 HR nitrofurantoin monohydrate and macrocrystal 100 mg cap(s) (MACROBID) 100 mg ORAL BID w MEALS phenazopyridine 200 mg tab(s) (PYRIDIUM, GERIDIUM) 200 mg ORAL TID after MEALS insulin regular human injection (short acting) (NovoLIN R,HumuLIN R) SUBCUTANEOUS w MEALS AND HS sodium chloride 0.65 % 2 [place] (AYR, OCEAN) 2 [place] EACH NOSTRIL PRN gabapentin 300 mg cap(s) (NEURONTIN) 300 mg ORAL q 8 H cyclophosphamide 150 mg cap(s) (CYTOXAN) 150 mg ORAL DAILY sulfamethoxazole-trimethoprim 800-160 mg 1 tablet (BACTRIM DS,SEPTRA DS) 1 tablet ORAL ondansetron 8 mg tab(s) (ZOFRAN) 8 mg ORAL q 12 H PRN cetirizine 10 mg tab(s) (ZyrTEC) 10 mg ORAL BID amLODIPine 10 mg tab(s) (NORVASC) 10 mg ORAL DAILY pantoprazole DR 40 mg tab(s) (PROTONIX) 40 mg ORAL DAILY (6 AM) dextrose 50% in water 25-50 mL syringe 12.5-25 g INTRAVENOUS PRN dextrose 40 % 15 g 15 g ORAL PRN glucagon 1 mg injection (GLUCAGEN) 1 mg SUBCUTANEOUS PRN acetaminophen 650 mg tab(s) (TYLENOL) 650 mg ORAL/FEEDING TUBE q 6 H PRN acetaminophen 650 mg suppository (TYLENOL) 650 mg RECTAL q 6 H PRN warfarin order for discharge OTHER PRN predniSONE 80 mg tab(s) (DELTASONE) 80 mg ORAL DAILY Objective PHYSICAL EXAM: Physical Exam Performed: BP 141/81 Pulse 107 Temp (Src) 97.8 (Oral) Resp 24 Ht 5' 3 (1.60m) Wt 212 lb 1.3 oz (96.2kg) SpO2 98% BMI 37.58 kg/(m2). General: Alert and oriented Lungs: CTA Abdomen: Soft, NT,ND,+BS Extremities: No edema DATA: Component Latest Ref Rng AND Units 10/01/2017 10/03/2017 WBC 3.70 - 11.00 k/uL 4.87 6.38 RBC 3.90 - 5.20 m/uL 2.92 (L) 3.11 (L) Hemoglobin 11.5 - 15.5 g/dL 8.1 (L) 8.4 (L) Hematocrit 36.0 - 46.0 % 25.5 (L) 27.8 (L) MCV 80.0 - 100.0 fL 87.3 89.4 MCH 26.0 - 34.0 pG 27.7 27.0 MCHC 30.5 - 36.0 g/dL 31.8 30.2 (L) RDW-CV 11.5 - 15.0 % 20.6 (H) 20.6 (H) Platelet Count 150 - 400 k/uL 64 (L) 95 (L) MPV 9.0 - 12.7 fL <<DO NOT REPORT>> <<DO NOT REPORT>> Absolute nRBC <0.01 k/uL <0.01 0.02 (H) Impression/Recommendations This is a 27 y/o female with PMHx of Triple-positive Anti-phospholipid Syndrome diagnosed in 2013?(catastrophic APS complicated by PE/DVT), needing plasmapheresis q2 weeks, Diffuse Alveolar Hemorrhage (On prednisone and Cytoxan), who was admitted to MICU for hemoptysis, accompanied with dyspnea and hypoxia (needing 3-4 L/min of O2 via nasal cannula). CXR on admission showed diffuse bilateral airspace opacities, may represent alveolar hemorrage. Most recent APS antibody titers (09/18) were: ACL IgG 61 and Anti-B2GP1 IgG >150. Plan: -Stable with no further hemoptysis -sp PLEX yesterday. Next session is due in 2 weeks ( 10/16)? -Continue with cytoxan 150 mg po daily ( home dose) -Please change steroid dose to home dose of prednisone 5 mg po daily starting tomorrow -Appreciate vascular medicine assistance with AC management -Please arrange for follow up with when nearing discharge -Hematology consult will sign off, please call us back with questions ? SIGNATURE: Justina Pollard PA-C PATIENT NAME: Paloma Cannon DATE: October 03, 2017 TIME: 9:25 AM PAGER: [phone] PROGRESS Observed: 10/03/2017 Status: COMPLETED Source: [place] 6:55 AM [facility] REPOSITORY HNO ID: [id number] Author: Danielle (Rn) Yudy RN Service: (none) Author Type: Registered Nurse Type: Progress Notes Filed: 10/03/2017 7:49 AM Note Text: Please Notify the Provider. This patient has THREE or more risk factors for SEPSIS and requires an assessment for infection. Nadja Trujillo notified of sepsis alert. Trending of last 3 clinical abnormalities associated with Severe Sepsis or Septic Shock 10/02/2017 2200 10/03/2017 0200 10/03/2017 0600 Temp: 36.4 ?C (97.6 ?F) 36.9 ?C (98.4 ?F) 36.6 ?C (97.8 ?F) Pulse: 99 97 106 Resp: 22 20 24 BP: 148/82 126/55 126/60 MAP: 100 - - O2 Sat: 95 % 100 % 98 % Abnormal Labs Indicating Infection/Organ Failure in the Last 24 Hours Platelet Count (k/uL) Date Value 10/03/2017 95 (L) PROGRESS Observed: 10/03/2017 Status: COMPLETED Source: [place] 5:27 AM [facility] REPOSITORY HNO ID: [id number] Author: Danielle (Rn) Yudy, RN Service: (none) Author Type: Registered Nurse Type: Progress Notes Filed: 10/03/2017 7:49 AM Note Text: Nursing Progress Note Patient Name: Paloma Cannon Patient Location: [place] [address] Daily Note: Vitals stable. SOB with exertion. O2 95 4L, SOB resolves with rest Urine output adequate - urine remains orange. UA sent from MICU BM - none overnight Pain - none Diet - tolerating. Denies nausea/vomting Pt ambulated to bathroom only Pt concerns: dosage of Neurontin. Pt states she takes 400mg qam, 300mg @ noon and 300mg qhs. Requesting home dosage resumed. Will inform day shift nurse of patient's request. Sepsis alert received in AM (0600). Susan Trujillo notified of alert. Day shift notified of alert. Will continue to monitor This note was completed by: Danielle Jimenes RN PROTIME Collected: 10/03/2017 Status: F Source: [place] 4:00 [facility] REPOSITORY TYPE CODE TESTS RESULT OUT OF RANGE REFERENCE UNITS LAB PSEC 9.7-13.0 sec PT Sec 11.4 LAB INR 0.9-1.3 PT INR 1.1 Result Comment: Vitamin K Antagonist (VKA) Therapeutic Range: INR 2 to 3 (Target INR of 2.5) Note: For patients treated with VKA drugs, such as warfarin, the [place] [employer] 2012 Guideline recommends a therapeutic INR range of 2 to 3 (target INR of 2.5). This recommendation includes high-risk patients with antiphospholipid syndrome with previous arterial or venous thromboembolism, current-generation mechanical or bioprosthetic aortic heart valve replacement. Note: Patients with mechanical aortic valve replacement and additional risk factors for thromboembolic events (atrial fibrillation, previous thromboembolism, LV dysfunction, hypercoagulable conditions) or an older generation mechanical AVR (i.e., ball in-Cage) or any mechanical MVR should have a INR therapeutic range of 2.5 to 3.5 (target INR of 3). Michael GH, et al. Chest 2012, 141:7S-47S Diogenes RA, et al. [facility] 2017, 70: 252-289 Performed By: #### PT, CBC, BMP, MG1, PHOS #### [facility] [address] [place] [address] CBC Collected: 10/03/2017 Status: F Source: [place] 4:00 [facility] REPOSITORY TYPE CODE TESTS RESULT OUT OF REFERENCE UNITS RANGE LAB WBC 3.70-11.00 k/uL WBC 6.38 LAB RBC 3.90-5.20 m/uL Low RBC 3.11 LAB HGB 11.5-15.5 g/dL Low Hemoglobin 8.4 LAB HCT 36.0-46.0 % Low Hematocrit 27.8 LAB MCV 80.0-100.0 fL MCV 89.4 LAB MCH 26.0-34.0 pG MCH 27.0 LAB MCHC 30.5-36.0 g/dL Low MCHC 30.2 LAB RDWCV 11.5-15.0 % RDW-CV High 20.6 LAB PLTCT 150-400 k/uL Low Platelet Count 95 Result Comment: Result checked and verified No clot detected. LAB MPV 9.0-12.7 fL MPV <<DO NOT REPORT>> LAB ABSNUC <0.01 k/uL 0.02 High Absolute nRBC Performed By: #### PT, CBC, BMP, MG1, PHOS #### [facility] [address] [place], [place] [address] BASIC METABOLIC PANL Collected: 10/03/2017 Status: F Source: [place] 4:00 AM [facility] [place] REPOSITORY TYPE CODE TESTS RESULT OUT OF REFERENCE UNITS RANGE LAB GLU 74-99 mg/dL High Glucose 131 Result Comment: The [place] [employer] (ADA) provides guidance for cutoff values for fasting glucose and random glucose. The ADA defines fasting as no caloric intake for at least 8 hours. Fas ting plasma glucose results between 100 to 125 mg/dL indicate increased risk for diabetes (prediabetes). Fasting plasma glucose results greater than or equal to 126 mg/dL meet the criteria for diagnosis of diabetes. In the absence of unequivocal hyperglycemia, results should be confirmed by repeat testing. In a patient with classic symptoms of hyperglycemia or hyperglycemic crisis, random plasma glucose results greater than or equal to 200 mg/dL meet the criteria for diagnosis of diabetes. Reference: Standards of Medical Care in Diabetes 2016, [place] [employer]. Diabetes Care. 2016.39(Suppl 1). LAB BUN 7-21 mg/dL BUN High 28 LAB CRET 0.58-0.96 mg/dL Creatinine High 1.17 LAB NA 136-144 mmol/L Sodium 137 LAB K 3.7-5.1 mmol/L Potassium 4.6 LAB CL 97-105 mmol/L Chloride 102 LAB CO2 22-30 mmol/L CO2 22 LAB AGAP 9-18 mmol/L Anion Gap 13 LAB CA 8.5-10.2 mg/dL Calcium, Total 8.6 LAB GFRAA eGFR- Amer. >60 LAB GFRNAA . eGFR-All Other Races 55 Result Comment: eGFR (Estimated GFR) Units of measure: mL/min/1.73 meters squared eGFR is derived from the reexpressed MDRD Study equation using the following parameters: serum creatinine, age, gender and race. The creatinine assay has been calibrated to be traceable to IDMS. An eGFR <60 mL/min/1.73m2 for >3 months is consistent with chronic kidney disease. Refer to KDOQI guidelines for clinical interpretation. In patients with unstable renal function, e.g. those with acute kidney injury, the eGFR may not accurately reflect actual GFR. Performed By: #### PT, CBC, BMP, MG1, PHOS #### [facility] [address] [place] [address] MAGNESIUM Collected: 10/03/2017 Status: F Source: [place] 4:00 AM [facility] REPOSITORY TYPE CODE TESTS RESULT OUT OF REFERENCE UNITS RANGE LAB MG 1.7-2.3 mg/dL Magnesium 2.0 Performed By: #### PT, CBC, BMP, MG1, PHOS #### [facility] [address] [place] [address] PHOSPHORUS Collected: 10/03/2017 Status: F Source: [place] 4:00 AM [facility] REPOSITORY TYPE CODE TESTS RESULT OUT OF REFERENCE UNITS RANGE LAB PHOS 2.7-4.8 mg/dL Phosphorus 3.4 Performed By: #### PT, CBC, BMP, MG1, PHOS #### [facility] [address] [place] [address] PROGRESS Observed: 10/02/2017 Status: COMPLETED Source: [place] 10:00 PM [facility] REPOSITORY HNO ID: [id number] Author: Danielle Sauer) JEFF Jimenes Service: (none) Author Type: Registered Nurse Type: Progress Notes Filed: 10/03/2017 5:26 AM Note Text: Admission/Transfer Note PATIENT NAME: Paloma Cannon Patient transferred from MICU via wheelchair in stable condition. Actions taken: Patient oriented to room, call light function, prescribed activities, Patient rights and Quiet at night. The patient has been instructed on the plan of care. Patient belongings with patient. This note was completed by: Danielle Jimenes RN NURSING PROG Observed: 10/02/2017 Status: COMPLETED Source: [place] 8:00 PM [facility] REPOSITORY HNO ID: [id number] Author: Kathi SanchezRnDevonte Jones RN Service: Nursing Author Type: Registered Nurse Type: Nursing Progress Note Filed: 10/02/2017 8:03 PM Note Text: Report called to 1 PLAN OF CARE Observed: 10/02/2017 Status: COMPLETED Source: [place] 7:41 PM [facility] REPOSITORY HNO ID: [id number] Author: Jessica Scott (Haritha) Riky Service: Critical Care Author Type: Resident Type: Plan of Care Filed: 10/02/2017 7:42 PM Note Text: Patient has a bed on H51-21 under general internal medicine. Stable for transfer. Sign out given to [facility] who will assign an accepting physician once patient is transferred. Jessica Lan MD October 02, 2017 7:42 PM PLAN OF CARE Observed: 10/02/2017 Status: COMPLETED Source: [place] 3:14 PM [facility] REPOSITORY HNO ID: [id number] Author: Michelle Randhawa (Fel) Service: Hematology/Oncology Author Type: Fellow Type: Plan of Care Filed: 10/02/2017 3:15 PM Note Text: Chart reviewed and patient seen at bedside. Interim events noted. Pheresis today, Dr. Claudio aware. Anticoagulation being managed by . Hematology will continue to follow peripherally. Michelle Randhawa MD Hematology and Oncology Fellow Pager: [phone] October 02, 2017 3:15 PM CONSULT PROG Observed: 10/02/2017 Status: COMPLETED Source: [place] 2:28 PM [facility] REPOSITORY HNO ID: [id number] Author: Paulette Naranjo APRN.ELLIOTT Service: Vascular Medicine Author Type: Nurse Practitioner Type: Consult Progress Note Filed: 10/02/2017 2:40 PM Note Text: VASCMED CONSULT PROGRESS NOTE Subjective Follow Up Regarding: APS, remote HIT INTERVAL HPI and PERTINENT ROS: INR 1.2 hgb 8.1 platelets 64 S: Sitting up in bed, undergoing PLEX at bedside, no recurrent hemoptysis since presentation. Current Facility-Administered Medications: calcium gluconate 3 g in NaCl 0.9% 1,000 mL 3 g INTRAVENOUS APHERESIS albumin (5%) 50 g infusion 1,000 mL INTRAVENOUS APHERESIS sodium citrate 4% 3-6 mL catheter lock 3-6 mL INTRALUMINAL APHERESIS PRN fondaparinux 2.5 mg injection (ARIXTRA) 2.5 mg SUBCUTANEOUS q 24 HR nitrofurantoin monohydrate and macrocrystal 100 mg cap(s) (MACROBID) 100 mg ORAL BID w MEALS phenazopyridine 200 mg tab(s) (PYRIDIUM, GERIDIUM) 200 mg ORAL TID after MEALS insulin regular human injection (short acting) (NovoLIN R,HumuLIN R) SUBCUTANEOUS w MEALS AND HS sodium chloride 0.65 % 2 [place] (AYR, OCEAN) 2 [place] EACH NOSTRIL PRN gabapentin 300 mg cap(s) (NEURONTIN) 300 mg ORAL q 8 H cyclophosphamide 150 mg cap(s) (CYTOXAN) 150 mg ORAL DAILY sulfamethoxazole-trimethoprim 800-160 mg 1 tablet (BACTRIM DS,SEPTRA DS) 1 tablet ORAL - ondansetron 8 mg tab(s) (ZOFRAN) 8 mg ORAL q 12 H PRN cetirizine 10 mg tab(s) (ZyrTEC) 10 mg ORAL BID amLODIPine 10 mg tab(s) (NORVASC) 10 mg ORAL DAILY pantoprazole DR 40 mg tab(s) (PROTONIX) 40 mg ORAL DAILY (6 AM) potassium chloride ER 40 mEq tab(s) (K-DUR, KLOR-CON) 40 mEq ORAL/FEEDING TUBE q 2 H PRN magnesium sulfate in water 4-6 g in sterile water 50 ml 4- 6 g INTRAVENOUS PRN sodium phosphate 45 mmol in NaCl 0.9% 250 mL 45 mmol INTRAVENOUS PRN insulin regular human iv bolus 2-10 Units 2-10 Units INTRAVENOUS PRN dextrose 50% in water 25-50 mL syringe 12.5-25 g INTRAVENOUS PRN dextrose 40 % 15 g 15 g ORAL PRN glucagon 1 mg injection (GLUCAGEN) 1 mg SUBCUTANEOUS PRN acetaminophen 650 mg tab(s) (TYLENOL) 650 mg ORAL/FEEDING TUBE q 6 H PRN And acetaminophen 650 mg suppository (TYLENOL) 650 mg RECTAL q 6 H PRN And oxyCODONE IR 5-10 mg tab(s) (ROXICODONE) 5-10 mg ORAL/FEEDING TUBE q 4 H PRN And HYDROmorphone 0.5-1 mg injection (DILAUDID) 0.5-1 mg INTRAVENOUS q 4 H PRN warfarin order for discharge OTHER PRN predniSONE 80 mg tab(s) (DELTASONE) 80 mg ORAL DAILY Objective PHYSICAL EXAM: BP 178/86 Pulse 118 Temp 36.6 ?C (97.9 ?F) (Oral) Resp 26 Ht 160 cm (5' 3) Wt 97.2 kg (214 lb 4.6 oz) SpO2 92% BMI 37.96 kg/m2 General: alert and oriented x3 Cardiac: RRR, tachy Respiratory: clear B/L anteriorly Abdominal/GI: soft, non-tender Extremity: trace edema, chronic skin changes B/L Skin: warm, dry Pulse/vascular exam: right + 2 rad/dp left + 2 rad/dp DATA: Diagnostic tests reviewed for today's visit: Most recent labs and imaging results. 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 ??Other pertinent past medical history include HF and CKD. ?Her warfarin is followed by given her APS. ?Dr. Andujar manages her APS/plasmapheresis. She presented on evening of 09/29 w/one time episode of hemoptysis after feeling poorly (nausea) and more short of breath w/increased 02 requirements. She is undergoing PLEX (regularly scheduled today). Her steroids were increased and she is also getting treatment for UTI. Plan discussed w/Dr. Weldon: continue fondaparinux 2.5 mg SC daily for DVT prophylaxis hold off on any therapeutic AC for additional 24 hrs will re-assess resumption of warfarin/bridging regimen tomorrow CBC/INR daily following along SIGNATURE: Paulette Naranjo APRN.CNP PATIENT NAME: Paloma Cannon DATE: October 02, 2017 TIME: 2:28 PM PAGER/CONTACT #: [phone] . PROGRESS Observed: 10/02/2017 Status: COMPLETED Source: [place] 12:12 PM [facility] REPOSITORY HNO ID: [id number] Author: Sanjiv Corado Service: Critical Care Author Type: Physician Type: Progress Notes Filed: 10/02/2017 3:20 PM Note Text: SERVICE DATE: 10/02/2017 SERVICE TIME: 12:12 PM MICU PROGRESS NOTE Admission Date: 09/29/2017 Hospital Day # 3 SUBJECTIVE Patient examined at the bedside, no acute events overnight, Does endorse post nasal drip which maybe contributing to her cough. Denies shortness of breath, chest pain. No lower extremity edema. OBJECTIVE Vital Signs (last filed) Range in last 24h Temp: 36.7 ?C (98.1 ?F) (10/02/17 0900) Temp Min: 36.6 ?C (97.9 ?F) Max: 37.1 ?C (98.8 ?F) Pulse: 118 (10/02/17 1200) Pulse Min: 97 Max: 123 Resp: 26 (10/02/17 1200) Resp Min: 18 Max: 30 BP: 178/86 (10/02/17 1200) BP Min: 129/72 Max: 178/86 MAP Non Invasive (Mean Arterial Pressure): 120 (10/02/17 1200) MAP Non Invasive (Mean Arterial Pressure) Min: 91 Max: 121 No Data Recorded SpO2: 92 % (10/02/17 1200) SpO2 Min: 91 % Max: 100 % Pain Score: 0/10 (10/02/17 0800) Fluid Balance: Intake/Output Summary (Last 24 hours) at 10/02/17 0659 Last data filed at 10/02/17 0100 Gross per 24 hour Intake 1096 ml Output 7 ml Net 1089 ml Last Weight: 97.2 kg (214 lb 4.6 oz) (09/29/17 2300) Admit Weight: 97.1 kg (214 lb) (09/29/17 1718) DIET REGULAR Lines, Drains, and Airways Line Central Line Single Lumen 09/29/17 Tunneled Left Chest 3 days Dialysis / Apheresis Double Lumen 09/29/17 Admission to Hospital Tunneled Left Chest 3 days Vent/Oxygen: Supplemental Oxygen: Yes. FiO2 2L Physical Examination Performed General: Alert and orientated x3, no acute distress Oral Mucosa: Moist mucous membranes Eyes: PERRLA Neck: Unremarkable; No adenopathy or JVD Cardiovascular: Regular rhythm Respiratory: Clear to auscultation, faint ins crackles, no wheezing or rhonchi Abdomen: Soft. Non tender Extremities: Edema- Yes Peripheral Pulses- Present all extremities Capillary Refill- less than 3 seconds Skin: Abnormalities- Yes Breakdown- No Neurologic: Awake, oriented Infusion Medications Diagnostic tests reviewed today: Most recent labs and imaging results. PATIENT CHECKLIST ? Are restraints necessary: No. ? Deep vein thrombosis prophylaxis administered? Yes ? Stress ulcer prophylaxis? No, not indicated. ? Nasogastric tube? No ? Zuniga catheter necessary? No ? Is central line essential? Yes ? Plan discussed with assigned RN? Yes ? Family updated within last 24 hours? 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 Previous hx of Diffuse Alveolar Hemorrhage - on cyclophosphamide. 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 Left ventricular systolic function is mildly decreased. EF = 50 ? 5% (visual est.) Indeterminate left ventricular diastolic dysfunction.GERD. Presented to the ED with acute onset of SOB, hypoxemia and hemoptysis ? Major Interval Events: 09/29: Admitted to the MICU 10/01: HDS. INR 1.5 this morning. Complains of dysuria. 10/02: stable oxygention requirements, does have a cough with no further episodes of hemoptysis Today's Plan: - Prophylactic Fondaparinux per vascular medicine - Urine Cx pending - Continue Prednisone/Cyclophosphamide - PLEX likely today, no ICU requirements, may discharge to [facility] - Plans for plasmapheresis tomorrow per Hematology ASSESSMENT AND PLAN Overview, Assessment AND Plan, all Hosp Problems Active Hospital Problems as of 10/02/2017 Noted - Resolved Hospital APS (antiphospholipid syndrome) ([facility]) 11/29/2016 - Present Overview - This was diagnosed in when she presented catastrophically with PE/DVT needing extensive percutaneous thrombectomy of her IVC and lower extremity veins followed by placement of B/L iliac venous stents and an endograft into her IVC. - She has a history of HIT - Initially give IV Rituximab with no benefits and complications of associated cardiotoxicity - Due to her being triple positive with + lupus anticoagulant, + [id number], and + anti-cardiolipin antibodies, she is on plasmapheresis every other week since and is also on Prednisone 5 mg daily - Also complicated by diffuse alveolar hemorrhage, as she has had 5 acute episodes of respiratory decline since , three of which were associated with her needing ET intubation and mechanical ventilation, last being in 07/26 - She was started on Cytoxan titrated to 200 mg daily on 06/2017 but was stopped recently when she was admitted for CLABSI. Resumed on 09/12/15 as 150 mg QD Plan -Vascular Surg following for anticoagulation plan -home coumadin on hold for PLEX, may restart after -currently on fondaparinux given high risk of developing clots -Continue cytoxan -Hematology following, plan for PLEX today (monday 10/02) -Continue increased dose of prednisone 80mg daily, takes 5mg at baseline -stable oxygen requirements CKD (chronic kidney disease) stage 3, GFR 30-59 ml/min 07/06/2016 - Present Overview Renal vein thrombosis with additional insult in from contrast induced nephropathy. Per records her baseline is 1.1. Plan: - Renally dose medication - Avoid nephrotoxins. - Strict I/O - Daily weight (HFpEF) heart failure with preserved ejection fraction (HCC) 02/20/2016 - Present Overview - not in acute exacerbation Last ECHO 08/2017: The left ventricle is dilated. Left ventricular systolic function is mildly decreased. EF = 50 ? 5% (visual est.) Indeterminate left HTN (hypertension) 10/08/2015 - Present Overview Well controlled -continue home amlodipine 10mg daily Peripheral neuropathy 04/14/2016 - Present Overview Continue Neurontin Hemoptysis 09/29/2017 - Present Overview PSO2 95% on RA most of the time -had a coughing episode prior to admission with productive sputum, which was initially clear but later mixed with blood -no further episodes of hemoptysis, likely local irritation from cough in the setting of anticoagulation use -to note, last two bronchs have been negative for DAH History of HIT (heparin-induced thrombocytopenia) (HCC) 03/14/2017 - Present Overview Plan: - Avoid heparin products Dysuria 10/02/2017 - Present Overview Endorsing dysuria, negative UA -urine culture is pending -continue nitrofurantoin for a total 5 day course pending culture data -continue pyridium Plan of care discussed with: Patient SIGNATURE: Franklin Ramey MD PATIENT NAME: Paloma Cannon DATE: October 02, 2017 TIME: 12:12 PM PAGER/CONTACT #: [phone] DR. FRED STONE, SR. HOSPITAL STAFF PHYSICIAN NOTE OF PERSONAL INVOLVEMENT IN CARE I have reviewed the progress note obtained and documented by the resident and I personally participated in the fernandes components. I have discussed the case and management of the patient's care. The following comments revise or confirm relevant fernandes components of the note. 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 Admitted with hemoptyss, which has subsided. On 3-5 LPmMNC. No evidence of alveolar hemorrhage in the last 2-3 bronchs with BAL (done for hemoptysis). - No further evidence of bleeding - Continue to hold warfarin - Fondaparinux - IS and Plasmapheresis per heme - Txf to RNF This patient has a high probability of sudden, clinically significant deterioration, which requires the highest level of physician preparedness to intervene urgently. I managed/supervised life or organ supporting interventions that required frequent physician assessment. I devoted my full attention to the direct care of this patient for the amount of time indicated below. Time I spent with family or surrogate(s) is included only if the patient was incapable of providing the necessary information or participating in medical decision making. Time devoted to teaching and to any procedures I billed separately is not included. SIGNATURE: Sanjiv Corado MD [facility] PROCEDURE Observed: 10/02/2017 Status: COMPLETED Source: [place] 12:03 PM [facility] REPOSITORY [facility] ID: [id number] Author: Lisseth Claudio MD Service: Apheresis Author Type: Physician Type: Procedures Filed: 10/02/2017 4:30 PM Note Text: APHERESIS THERAPEUTIC PROCEDURE NOTE SERVICE DATE: 10/02/2017 SERVICE TIME: 1128 TREATMENT #: [id number]. Pre-treatment labs drawn: No PLAN Next treatment- 10/16/2017 : 1990 Age: [age] year old Gender: female Patient identification confirmed patient, birthdate and MRN Apheresis Requested By: Hematology Diagnosis: Catastrophic Antiphospholipid Syndrome Treatment Procedure: Plasmapheresis LABS Recent Labs 10/01/17 2352 09/29/17 2347 09/29/17 1804 WBC 4.87 < > 5.27 6.48 HB 8.1* < > 7.9* 8.7* HCT 25.5* < > 25.9* 28.2* PLT 64* < > 43* 41* INR 1.2 < > -- 2.1* APTT -- -- -- 33.8* BUN 22* < > 20 21 CREAT 1.02* < > 1.13* 1.13* ALB -- -- 3.5* 3.7* CA 8.5 < > 8.2* 8.8 MG 2.0 -- 1.8 1.7 TBILI -- -- 0.7 1.0 < > = values in this interval not displayed. Cholesterol, Total (mg/dL) Date Value 06/20/2017 129 HDL Cholesterol (mg/dL) Date Value 06/20/2017 40 LDL Cholesterol (mg/dL) Date Value 06/20/2017 66 Triglyceride (mg/dL) Date Value 06/20/2017 114 INTERVAL HISTORY: Patient reports feeling well denies complaints PRE-TREATMENT BP 178/86 Pulse 118 Temp 36.7 ?C (98.1 ?F) (Oral) Resp 26 Ht 160 cm (5' 3) Wt 97.2 kg (214 lb 4.6 oz) SpO2 92% BMI 37.96 kg/m2 Treatment performed at: Unit/Bed- G061 002/G061-02 Collection bag identification label confirmed with { :[id number]::patient and s Date: 10/02/2017 Catheter Site Dressing: Dry and intact. Venous access: left red port and IJ double lumen catheter, venous return: left blue port PRE-MEDICATION diphenhydramine 50mg IV Time:1209 and hydrocortisone 100mg IV Time:1213 TREATMENT PARAMETER DATA Whole blood processed: 6632 ml Volume removed: 4197 ml Volume replaced: Albumin 1000 ml, NSS 1000 ml and FFP 1501 ml ACD to patient: 66 ml Calcium gluconate 10%: 30 ml Net fluid balance: NSS + 26 ml POST-TREATMENT Vital signs: BP 134/67 HR 104 RR 18 TEMP 36.1 Labs Drawn: None At completion of treatment: Lumen flushed with 10 ml NSS and Lumen flushed with 3 ml 4% sodium citrate Patient tolerated treatment well without complications: Yes, System clotted mid treatment, Approx. 60ml blood returned. New treatment started [id number] without further difficulties. Patient instructed to continue abundant oral fluids. Report given to unit nurse. Patient remains in hospital bed. Treatment Started by Apheresis Nurse: Carmita Verdin RN Treatment Completed by Apheresis Nurse: .Carmita Verdin RN DR. FRED STONE, SR. HOSPITAL STAFF PHYSICIAN NOTE OF PERSONAL INVOLVEMENT IN CARE Ms Cannon tolerated the treatment without any acute events. Her next plasma exchange will be in 2 weeks. Will continue to coordinate with Dr. Andujar. I reviewed the patients labs, medications and allergies prior to proceeding with this therapeutic treatment and discussed the case and parameters with the apheresis nurse. I have reviewed this therapeutic progress note documented by the apheresis nurse. I personally participated in all pertinent aspects and fernandes components of the therapeutic treatment. I was present during the treatment. Signature: Lisseth Claudio MD October 02, 2017 4:23 PM Pager: [phone] PROTIME Collected: 10/01/2017 Status: F Source: [place] 11:52 PM [facility] REPOSITORY TYPE CODE TESTS RESULT OUT OF RANGE REFERENCE UNITS LAB PSEC 9.7-13.0 sec PT Sec 12.5 LAB INR 0.9-1.3 PT INR 1.2 Result Comment: Vitamin K Antagonist (VKA) Therapeutic Range: INR 2 to 3 (Target INR of 2.5) Note: For patients treated with VKA drugs, such as warfarin, the [place] [employer] 2012 Guideline recommends a therapeutic INR range of 2 to 3 (target INR of 2.5). This recommendation includes high-risk patients with antiphospholipid syndrome with previous arterial or venous thromboembolism, current-generation mechanical or bioprosthetic aortic heart valve replacement. Note: Patients with mechanical aortic valve replacement and additional risk factors for thromboembolic events (atrial fibrillation, previous thromboembolism, LV dysfunction, hypercoagulable conditions) or an older generation mechanical AVR (i.e., ball in-Cage) or any mechanical MVR should have a INR therapeutic range of 2.5 to 3.5 (target INR of 3). Michael GH, et al. Chest 2012, 141:7S-47S Diogenes RA, et al. [facility] 2017, 70: 252-289 Performed By: #### PT, CBC, BMP, MG1, PHOS #### [facility] [email or web address] [place], [place] [address] CBC Collected: 10/01/2017 Status: F Source: [place] 11:52 PM [facility] REPOSITORY TYPE CODE TESTS RESULT OUT OF REFERENCE UNITS RANGE LAB WBC 3.70-11.00 k/uL WBC 4.87 LAB RBC 3.90-5.20 m/uL Low RBC 2.92 LAB HGB 11.5-15.5 g/dL Low Hemoglobin 8.1 LAB HCT 36.0-46.0 % Low Hematocrit 25.5 LAB MCV 80.0-100.0 fL MCV 87.3 LAB MCH 26.0-34.0 pG MCH 27.7 LAB MCHC 30.5-36.0 g/dL MCHC 31.8 LAB RDWCV 11.5-15.0 % RDW-CV High 20.6 LAB PLTCT 150-400 k/uL Low Platelet Count 64 Result Comment: Result checked and verified No clot detected. LAB MPV 9.0-12.7 fL MPV <<DO NOT REPORT>> LAB ABSNUC <0.01 k/uL <0.01 Absolute nRBC Performed By: #### PT, CBC, BMP, MG1, PHOS #### [facility] [employer] [address] [place], [place] [address] BASIC METABOLIC PANL Collected: 10/01/2017 Status: F Source: [place] 11:52 PM [facility] REPOSITORY TYPE CODE TESTS RESULT OUT OF REFERENCE UNITS RANGE LAB GLU 74-99 mg/dL High Glucose 143 Result Comment: The [place] [employer] Association (ADA) provides guidance for cutoff values for fasting glucose and random glucose. The ADA defines fasting as no caloric intake for at least 8 hours. Fas ting plasma glucose results between 100 to 125 mg/dL indicate increased risk for diabetes (prediabetes). Fasting plasma glucose results greater than or equal to 126 mg/dL meet the criteria for diagnosis of diabetes. In the absence of unequivocal hyperglycemia, results should be confirmed by repeat testing. In a patient with classic symptoms of hyperglycemia or hyperglycemic crisis, random plasma glucose results greater than or equal to 200 mg/dL meet the criteria for diagnosis of diabetes. Reference: Standards of Medical Care in Diabetes 2016, [place] [employer]. Diabetes Care. 2016.39(Suppl 1). LAB BUN 7-21 mg/dL BUN High 22 LAB CRET 0.58-0.96 mg/dL Creatinine High 1.02 LAB NA 136-144 mmol/L Low Sodium 133 LAB K 3.7-5.1 mmol/L Potassium 4.9 LAB CL 97-105 mmol/L Chloride 101 LAB CO2 22-30 mmol/L Low CO2 21 LAB AGAP 9-18 mmol/L Anion Gap 11 LAB CA 8.5-10.2 mg/dL Calcium, Total 8.5 LAB GFRAA eGFR- Amer. >60 LAB GFRNAA . eGFR-All Other Races >60 Result Comment: eGFR (Estimated GFR) Units of measure: mL/min/1.73 meters squared eGFR is derived from the reexpressed MDRD Study equation using the following parameters: serum creatinine, age, gender and race. The creatinine assay has been calibrated to be traceable to IDMS. An eGFR <60 mL/min/1.73m2 for >3 months is consistent with chronic kidney disease. Refer to KDOQI guidelines for clinical interpretation. In patients with unstable renal function, e.g. those with acute kidney injury, the eGFR may not accurately reflect actual GFR. Performed By: #### PT, CBC, BMP, MG1, PHOS #### [facility] [employer] [address] [id number] MAGNESIUM Collected: 10/01/2017 Status: F Source: [place] 11:52 PM [facility] REPOSITORY TYPE CODE TESTS RESULT OUT OF REFERENCE UNITS RANGE LAB MG 1.7-2.3 mg/dL Magnesium 2.0 Performed By: #### PT, CBC, BMP, MG1, PHOS #### [facility] [address] [id number] PHOSPHORUS Collected: 10/01/2017 Status: F Source: [place] 11:52 PM [facility] REPOSITORY TYPE CODE TESTS RESULT OUT OF REFERENCE UNITS RANGE LAB PHOS 2.7-4.8 mg/dL Phosphorus 3.1 Performed By: #### PT, CBC, BMP, MG1, PHOS #### [facility] [address] [address] Observed: 10/01/2017 Status: F Source: [place] URINE CULTURE 10:50 PM [facility] REPOSITORY Sp. Request/Comment: - Specimen received in preservative Culture Result - 10,000 - <50,000 CFU/ml Three or more organisms, no one type predominant, suggesting contamination during collection. Recollect if clinically indicated. Performed By: #### URCUL #### [facility] [address] [address] URINALYSIS Collected: 10/01/2017 Status: F Source: [place] 9:52 AM [facility] REPOSITORY TYPE CODE TESTS RESULT OUT OF RANGE REFERENCE UNITS LAB UCOL Yellow Color Yellow LAB [facility] Clear Clarity Abnormal Cloudy Alert LAB UGLUC Negative mg/dL Glucose, Urine Negative LAB UBIL Negative Bilirubin, Urine Negative LAB UKET Negative Ketones, Urine Negative LAB USPG 1.005-1.030 Specific [place], Ur 1.019 LAB UHGB Negative Abnormal Hemoglobin/Blood, 3+ Alert Ur LAB UPH 4.5-8.0 pH 5.0 LAB UPROT Negative mg/dL Protein, Abnormal Urine 100 Alert LAB UUROB Normal Urobilinogen Normal LAB UNITR Negative Nitrites Negative LAB ULKEST Negative Leukest Negative LAB UCOM Comments SEE COMMENT Result Comment: Microscopic Examination Performed LAB UWBC 0-5 /HPF Abnormal WBC Alert 11-25 LAB URBC 0-3 /HPF Abnormal RBC Alert >25 LAB UEPI /HPF Epithelial Cells SEE COMMENT Result Comment: Few Squamous Epithelial Cells LAB UMCOM Urine SEE Radha Comment COMMENT Result Comment: N/A Performed By: #### UA #### [facility] [address] [place], [place] [address] CONSULT PROG Observed: 10/01/2017 Status: COMPLETED Source: [place] 8:22 AM [facility] REPOSITORY HNO ID: [id number] Author: Darcie Choi MD Service: Vascular Medicine Author Type: Physician Type: Consult Progress Note Filed: 10/01/2017 3:39 PM Note Text: VASCMED CONSULT PROGRESS NOTE SERVICE DATE: 10/01/2017 SERVICE TIME: 8:22 AM Subjective Follow Up Regarding: anticoagulation management in the setting of alveolar hemorrhage INTERVAL HPI and PERTINENT ROS: Seen by Hematology yesterday Started on prednisone 80mg. No acute events overnight. Has dysuria. There was mild hematuria last time she went to e. No other hemoptysis She still feels short of breath on exertion. Current Facility-Administered Medications: gabapentin 300 mg cap(s) (NEURONTIN) 300 mg ORAL q 8 H cyclophosphamide 150 mg cap(s) (CYTOXAN) 150 mg ORAL DAILY sulfamethoxazole-trimethoprim 800-160 mg 1 tablet (BACTRIM DS,SEPTRA DS) 1 tablet ORAL - ondansetron 8 mg tab(s) (ZOFRAN) 8 mg ORAL q 12 H PRN cetirizine 10 mg tab(s) (ZyrTEC) 10 mg ORAL BID amLODIPine 10 mg tab(s) (NORVASC) 10 mg ORAL DAILY pantoprazole DR 40 mg tab(s) (PROTONIX) 40 mg ORAL DAILY (6 AM) potassium chloride ER 40 mEq tab(s) (K-DUR, KLOR-CON) 40 mEq ORAL/FEEDING TUBE q 2 H PRN magnesium sulfate in water 4-6 g in sterile water 50 ml 4- 6 g INTRAVENOUS PRN sodium phosphate 45 mmol in NaCl 0.9% 250 mL 45 mmol INTRAVENOUS PRN insulin regular human injection (short acting) (NovoLIN R,HumuLIN R) SUBCUTANEOUS q 6 H insulin regular 250 units in NaCl 0.9% 250 mL iv infusion - ICU NOMOGRAM 0.5-30 Units/hr INTRAVENOUS CONTINUOUS insulin regular human iv bolus 2-10 Units 2-10 Units INTRAVENOUS PRN dextrose 50% in water 25-50 mL syringe 12.5-25 g INTRAVENOUS PRN dextrose 40 % 15 g 15 g ORAL PRN glucagon 1 mg injection (GLUCAGEN) 1 mg SUBCUTANEOUS PRN acetaminophen 650 mg tab(s) (TYLENOL) 650 mg ORAL/FEEDING TUBE q 6 H PRN And acetaminophen 650 mg suppository (TYLENOL) 650 mg RECTAL q 6 H PRN And oxyCODONE IR 5-10 mg tab(s) (ROXICODONE) 5-10 mg ORAL/FEEDING TUBE q 4 H PRN And HYDROmorphone 0.5-1 mg injection (DILAUDID) 0.5-1 mg INTRAVENOUS q 4 H PRN warfarin order for discharge OTHER PRN predniSONE 80 mg tab(s) (DELTASONE) 80 mg ORAL DAILY Objective PHYSICAL EXAM: BP 145/65 Pulse 106 Temp 37.4 ?C (99.3 ?F) (Oral) Resp 23 Ht 160 cm (5' 3) Wt 97.2 kg (214 lb 4.6 oz) SpO2 96% BMI 37.96 kg/m2 General Appearance: Cooperative, in no acute distress, alert. On 4 liters of oxygen HEENT: Anicteric sclera Heart: RRR without murmur, gallop or rubs. Lungs: CTA=Bilat. Abdomen: Abdomen soft, non-tender. Upper Extremities:No deformities, edema, or skin discoloration. Good capillary refill. Lower Extremities: Feet and toes warm. Positive for mild distal pitting edema. Good capillary refill Normal pulses for radial, dorsalis pedis and posterior tibial pulses bilaterally. DATA: Diagnostic tests reviewed for today's visit: Most recent labs and imaging results. Component Latest Ref Rng AND Units 09/29/2017 09/30/2017 10/01/2017 11:47 PM WBC 3.70 - 11.00 k/uL 5.27 3.38 (L) 3.85 RBC 3.90 - 5.20 m/uL 2.93 (L) 2.85 (L) 2.79 (L) Hemoglobin 11.5 - 15.5 g/dL 7.9 (L) 7.8 (L) 7.6 (L) Hematocrit 36.0 - 46.0 % 25.9 (L) 25.6 (L) 24.6 (L) MCV 80.0 - 100.0 fL 88.4 89.8 88.2 MCH 26.0 - 34.0 pG 27.0 27.4 27.2 MCHC 30.5 - 36.0 g/dL 30.5 30.5 30.9 RDW-CV 11.5 - 15.0 % 21.6 (H) 21.4 (H) 21.1 (H) Platelet Count 150 - 400 k/uL 43 (L) 50 (L) 56 (L) Component Latest Ref Rng AND Units 10/01/2017 Glucose 74 - 99 mg/dL 98 BUN 7 - 21 mg/dL 20 Creatinine 0.58 - 0.96 mg/dL 1.15 (H) Sodium 136 - 144 mmol/L 136 Potassium 3.7 - 5.1 mmol/L 4.1 Chloride 97 - 105 mmol/L 99 CO2 22 - 30 mmol/L 22 Anion Gap 9 - 18 mmol/L 15 Calcium 8.5 - 10.2 mg/dL 8.0 (L) eGFR- >60 eGFR-All Other Races . 56 Component Latest Ref Rng AND Units 09/29/2017 09/30/2017 10/01/2017 PT INR 0.9 - 1.3 2.1 (H) 1.9 (H) 1.5 (H) XR Chest 09/30/2017 IMPRESSION: Lines, tubes, and devices: ?Left spondylolysis catheter and indwelling central venous catheter are stable. Lungs and pleura: ?Shallow inspiration. ?Diffuse bilateral airspace opacities may represent alveolar hemorrhage as seen on recent chest CT. ? No focal consolidation. ?No large pleural effusion or pneumothorax. Cardiomediastinal silhouette: ?Enlarged cardiomediastinal silhouette. ? Hilar vasculature structures are grossly unremarkable. Other: ?Osseous structures are grossly unremarkable. ? CT CHEST 09/11/2017 IMPRESSION: Diffuse bilateral confluent areas of groundglass opacity throughout both lungs in a centrilobular distribution pattern with mild scattered areas of air trapping. ?Findings are concerning for diffuse alveolar hemorrhage in the clinical setting of anti-phospholipid antibody syndrome, although, infection, edema, inhalation lung disease or hypersensitivity pneumonitis can have a similar appearance. Multiple small left lower lobe dependent nodular opacities probably infectious or aspiration induced. ? LE venous DUS 06/08/2017: IMPRESSION: TECHNICALLY LIMITED STUDY. POSITIVE STUDY FOR CHRONIC PROXIMAL DVT IN THE RIGHT AND LEFT LOWER EXTREMITIES. POSITIVE STUDY FOR CHRONIC CALF DVT IN THE RIGHT AND LEFT LOWER EXTREMITIES. POSITIVE STUDY FOR SUPERFICIAL THROMBOPHLEBITIS IN THE RIGHT AND LEFT LOWER EXTREMITIES. NONOCCLUSIVE THROMBUS IN BILATERAL LOWER EXTREMITIES. ?EXAMINATION IS ESSENTIALLY UNCHANGED COMPARED TO ULTRASOUND PERFORMED ON 03/16/2017. 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 Andujar, Hematology). ? ? _Recurrent hemoptyses w/ diffuse bilateral airspace opacities may represent alveolar hemorrhage, in the setting of chronic thrombocytopenia ? Pt stable, mildly hypoxic, no need for transfusions INR is not therapeutic anymore _UTI? ? Plan => We would start patient on prophylactic dose of fondaparinux (2.5mg sc daily) today given the very high risk of thrombosis in this patient => We would recommend holding her coumadin until her PLEX (as generally done) => We would get CBC, sCr and INR daily => PLEX scheduled on Monday 10/02 SIGNATURE: Linnette Almendarez MD PATIENT NAME: Paloma Cannon DATE: October 01, 2017 TIME: 8:22 AM PAGER/CONTACT #: [phone] . Staff addendum: I interviewed and examined Paloma Cannon, and reviewed and confirmed the findings of the fellow with additional comments below. The assessment and plan was formulated in discussion with the patient and fellow, and is also outlined below. Pleasant 27yo F with hx of APS, well known to our service. Currently admitted for some mild hemoptysis. She has had increasing O2 requirements compared to baseline. We are consulted regarding anticoagulation mgmt. Hematology also contacted re APS. She had her last dose of warfarin Monday PM 09/29, and INR was 2.1. She had anticipated holding warfarin 09/30-10/01 for PLEX on Monday 10/02 as per schedule. INR today 10/01 is appropriately down to 1.5. She received fondaparinux 2.5mg SC this morning for prophylactic dose anticoagulation. Reasonable to continue this as long as she is not experiencing any more significant hemoptysis or other bleeding. Must avoid all heparin products due to hx of HIT. If no s/o worsening hemoptysis after PLEX, will revisit plan for bridging/warfarin dosing after pheresis at that time. ? Darcie Choi MD Vascular Medicine Staff PROGRESS Observed: 10/01/2017 Status: COMPLETED Source: [place] 8:21 AM [facility] REPOSITORY HNO ID: [id number] Author: Coy Lambert Service: Critical Care Author Type: Physician Type: Progress Notes Filed: 10/01/2017 10:24 AM Note Text: [facility] MICU/CRITICAL CARE DAILY PROGRESS NOTE Please page MICU for any concerns SERVICE DATE: 10/01/2017 SERVICE TIME: 8:22 AM Admission Date: 09/29/2017 Day #: 2 in the MICU. Patient Summary: 27 years old woman with PMHx of Anti-phospholipid Syndrome diagnosed in 2013 (catastrophic APAS c/b PE/DVT requiring extensive percutaneous thrombectomy of her IVC + lower extremity veins with placement of bilateral iliac venous stents and an IVC endograft, found to be positive for lupus anticoagulant, [id number], and anti-cardiolipin antibodies for which she gets plasmapheresis q2 weeks and is on daily prednisone 5 mg daily). Previous hx of Diffuse Alveolar Hemorrhage - on cyclophosphamide. 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 Left ventricular systolic function is mildly decreased. EF = 50 ? 5% (visual est.) Indeterminate left ventricular diastolic dysfunction.GERD. Presented to the ED with acute onset of SOB, hypoxemia and hemoptysis ? Major Interval Events: 09/29: Admitted to the MICU 10/01: HDS. INR 1.5 this morning. Complains of dysuria. Today's Plan: - Prophylactic Fondaparinux per vascular medicine recs? - Check UA - Continue Prednisone/Cyclophosphamide - Plans for plasmapheresis tomorrow per Hematology Active Hospital Problems Diagnosis - Hemoptysis Patient has been doing well at home off daytime oxygen. PSO2 95% on RA most of the time. This afternoon patient developed a cute onset cough fits ~ 20 times associated with SOB and desaturation down to 72% on RA. She was coughing clear sputum initially streaked with blood but later it was mixed with blood. Per patient total amount of blood lost close to one table spoon. CXR in the ED Shallow inspiration. Diffuse bilateral airspace opacities may represent alveolar hemorrhage as seen on recent chest CT. ?No focal consolidation. ?No large pleural effusion or pneumothorax. Previous CT scan was done on 09/11/17: Diffuse bilateral confluent areas of groundglass opacity throughout both lungs in a centrilobular distribution pattern with mild scattered areas of air trapping. ?Findings are concerning for diffuse alveolar hemorrhage in the clinical setting of anti-phospholipid antibody syndrome, although, infection, edema, inhalation lung disease or hypersensitivity pneumonitis can have a similar appearance. - Increase prednisone to 1 mg/kg - vascular medicine consult for AC - Monitor CBC - Monitor INR - APS (antiphospholipid syndrome) (HCC) - This was diagnosed in when she presented catastrophically with PE/DVT needing extensive percutaneous thrombectomy of her IVC and lower extremity veins followed by placement of B/L iliac venous stents and an endograft into her IVC. - She has a history of HIT - Initially give IV Rituximab with no benefits and complications of associated cardiotoxicity - Due to her being triple positive with + lupus anticoagulant, + [id number], and + anti-cardiolipin antibodies, she is on plasmapheresis every other week since and is also on Prednisone 5 mg daily. - Also complicated by diffuse alveolar hemorrhage, as she has had 5 acute episodes of respiratory decline since , three of which were associated with her needing ET intubation and mechanical ventilation, last being in 07/26 - She was started on Cytoxan titrated to 200 mg daily on 06/2017 but was stopped recently when she was admitted for CLABSI. Resumed on 09/12/15 as 150 mg QD Plan - She will need Staff physician to sing order to continue home dose Cytoxan - Plan to continue plasmapheresis every other week, Next session Monday10/02/17 - Continue Warfarin 2.5 - Continue prednisone - Monitor respiratory function - O2 to sat > 95% - BPH - Monitor Hb - Monitor INR - Avoid Heparin products - CKD (chronic kidney disease) stage 3, GFR 30-59 ml/min Renal vein thrombosis with additional insult in from contrast induced nephropathy. Per records her baseline is 1.1. Plan: - Renally dose medication - Gentle hydration overnight - Avoid nephrotoxins. 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 Following with Cardiology No CHF physiology Last ECHO 08/2017: The left ventricle is dilated. Left ventricular systolic function is mildly decreased. EF = 50 ? 5% (visual est.) Indeterminate left - HTN (hypertension) On Amlodipine 5 mg QD - Peripheral neuropathy Continue Neurontin INPATIENT MEDICATIONS: Current hospital medications: gabapentin 300 mg cap(s) (NEURONTIN) 300 mg ORAL q 8 H cyclophosphamide 150 mg cap(s) (CYTOXAN) 150 mg ORAL DAILY sulfamethoxazole-trimethoprim 800-160 mg 1 tablet (BACTRIM DS,SEPTRA DS) 1 tablet ORAL ondansetron 8 mg tab(s) (ZOFRAN) 8 mg ORAL q 12 H PRN cetirizine 10 mg tab(s) (ZyrTEC) 10 mg ORAL BID amLODIPine 10 mg tab(s) (NORVASC) 10 mg ORAL DAILY pantoprazole DR 40 mg tab(s) (PROTONIX) 40 mg ORAL DAILY (6 AM) potassium chloride ER 40 mEq tab(s) (K-DUR, KLOR-CON) 40 mEq ORAL/FEEDING TUBE q 2 H PRN magnesium sulfate in water 4-6 g in sterile water 50 ml 4- 6 g INTRAVENOUS PRN sodium phosphate 45 mmol in NaCl 0.9% 250 mL 45 mmol INTRAVENOUS PRN insulin regular human injection (short acting) (NovoLIN R,HumuLIN R) SUBCUTANEOUS q 6 H insulin regular 250 units in NaCl 0.9% 250 mL iv infusion - ICU NOMOGRAM 0.5-30 Units/hr INTRAVENOUS CONTINUOUS insulin regular human iv bolus 2-10 Units 2-10 Units INTRAVENOUS PRN dextrose 50% in water 25-50 mL syringe 12.5-25 g INTRAVENOUS PRN dextrose 40 % 15 g 15 g ORAL PRN glucagon 1 mg injection (GLUCAGEN) 1 mg SUBCUTANEOUS PRN acetaminophen 650 mg tab(s) (TYLENOL) 650 mg ORAL/FEEDING TUBE q 6 H PRN acetaminophen 650 mg suppository (TYLENOL) 650 mg RECTAL q 6 H PRN oxyCODONE IR 5-10 mg tab(s) (ROXICODONE) 5-10 mg ORAL/FEEDING TUBE q 4 H PRN HYDROmorphone 0.5-1 mg injection (DILAUDID) 0.5-1 mg INTRAVENOUS q 4 H PRN warfarin order for discharge OTHER PRN predniSONE 80 mg tab(s) (DELTASONE) 80 mg ORAL DAILY PHYSICAL EXAM: BP 145/65 Pulse 106 Temp 37.4 ?C (99.3 ?F) (Oral) Resp 23 Ht 160 cm (5' 3) Wt 97.2 kg (214 lb 4.6 oz) SpO2 96% BMI 37.96 kg/m2 Oral Mucosa: Moist mucous membranes Eyes: PERRLA Neck: Unremarkable; No adenopathy or JVD Cardiovascular: Regular rhythm Respiratory: Clear to auscultation Abdomen: Soft and Nontender Extremities: Edema- Yes Peripheral Pulses- Present all extremities Capillary Refill- less than 3 seconds Skin: Abnormalities- No Breakdown- No Neurologic: Awake, oriented and Alert DATA: Diagnostic tests reviewed for today's visit: Intake/Output Summary (Last 24 hours) at 10/01/17 0825 Last data filed at 10/01/17 0500 Gross per 24 hour Intake 240 ml Output 8 ml Net 232 ml CBC, Coags, BMP, Mg, Phos Recent Labs 10/01/17 0026 09/30/17 1239 09/30/17 0837 09/29/17 2347 09/29/17 1804 WBC 3.85 -- 3.38* 5.27 6.48 HB 7.6* -- 7.8* 7.9* 8.7* HCT 24.6* -- 25.6* 25.9* 28.2* PLT 56* -- 50* 43* 41* INR 1.5* 1.9* -- -- 2.1* APTT -- -- -- -- 33.8* NA 136 -- -- 133* 135* K 4.1 -- -- 3.8 3.5* CHLOR 99 -- -- 97 98 CO2 22 -- -- 21* 22 BUN 20 -- -- 20 21 CREAT 1.15* -- -- 1.13* 1.13* GLUC 98 -- -- 116* 74 CA 8.0* -- -- 8.2* 8.8 MG -- -- -- 1.8 1.7 P -- -- -- 4.0 -- Liver Function, Amylase, AND Lipase Recent Labs 09/29/17 2347 09/29/17 1804 TPROT 5.8* 6.0* ALB 3.5* 3.7* ALT 6* <5* AST 14 12* ALKPHOS 56 59 TBILI 0.7 1.0 ABGs ASSESSMENT AND PLAN: No problems updated. PATIENT CHECKLIST ? Are restraints necessary: No ? Deep vein thrombosis prophylaxis administered?on anticoagulation ? Stress ulcer prophylaxis? No, not indicated. ? Nasogastric tube? No ? Zuniga catheter necessary? No ? Is central line essential? Yes ? Plan discussed with assigned RN? Yes ? Family updated within last 24 hours? Yes SIGNATURE: Hollis Oro DO PATIENT NAME: Paloma Cannon DATE: October 01, 2017 TIME: 8:22 AM PAGER/CONTACT #: [phone] DR. FRED STONE, SR. HOSPITAL STAFF PHYSICIAN NOTE OF PERSONAL INVOLVEMENT IN CARE I have reviewed the progress note obtained and documented by the resident and I personally participated in the fernandes components. I have discussed the case and management of the patient's care. The following comments revise or confirm relevant fernandes components of the note. ? 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 Chronic thrombocytopenia. H/o HIT ? in the record. Admitted with hemoptyss, which has subsided. On 3-5 LPmMNC. Platelets 50's INR 2.1 No evidence of alveolar hemorrhage in the last 2-3 bronchs with BAL (done for hemoptysis). H/o HIT No more hemoptysis ? PLAN: fondaparinux prophylaxis, pred and cytoxan, PLEX on Monday ? Patient/Family Updated: Patient, Paloma Cannon, updated regarding the goals of care,? medical plan for the day, outside solar sales consultant recommendations, medical disposition and current medical condition/prognosis as and if clinically indicated. All questions and concerns were answered and addressed at this juncture. ? This patient has a high probability of sudden, clinically significant deterioration, which requires the highest level of physician preparedness to intervene urgently. I managed/supervised life or organ supporting interventions that required frequent physician assessment. I devoted my full attention to the direct care of this patient for the amount of time indicated below. Time I spent with family or surrogate(s) is included only if the patient was incapable of providing the necessary information or participating in medical decision making. Time devoted to teaching and to any procedures I billed separately is not included. ? Critical Care Documentation: The patient has the following organ/system impairment(s): hemoptysis ? Time spent providing critical care services: 30 minutes. ? SIGNATURE: Coy Lambert MD [facility] Collected: 10/01/2017 Status: F Source: [place] 12:26 AM [facility] REPOSITORY TYPE CODE TESTS RESULT OUT OF RANGE REFERENCE UNITS LAB PSEC 9.7-13.0 sec High PT Sec 15.1 LAB INR 0.9-1.3 High PT INR 1.5 Result Comment: Vitamin K Antagonist (VKA) Therapeutic Range: INR 2 to 3 (Target INR of 2.5) Note: For patients treated with VKA drugs, such as warfarin, the [place] [employer] 2012 Guideline recommends a therapeutic INR range of 2 to 3 (target INR of 2.5). This recommendation includes high-risk patients with antiphospholipid syndrome with previous arterial or venous thromboembolism, current-generation mechanical or bioprosthetic aortic heart valve replacement. Note: Patients with mechanical aortic valve replacement and additional risk factors for thromboembolic events (atrial fibrillation, previous thromboembolism, LV dysfunction, hypercoagulable conditions) or an older generation mechanical AVR (i.e., ball in-Cage) or any mechanical MVR should have a INR therapeutic range of 2.5 to 3.5 (target INR of 3). Michael GH, et al. Chest 2012, 141:7S-47S Diogenes RA, et al. [facility] 2017, 70: 252-289 Performed By: #### PT, CBC, BMP #### [facility] [address] [address] CBC Collected: 10/01/2017 Status: F Source: [place] 12:26 AM [facility] REPOSITORY TYPE CODE TESTS RESULT OUT OF REFERENCE UNITS RANGE LAB WBC 3.70-11.00 k/uL WBC 3.85 LAB RBC 3.90-5.20 m/uL Low RBC 2.79 LAB HGB 11.5-15.5 g/dL Low Hemoglobin 7.6 LAB HCT 36.0-46.0 % Low Hematocrit 24.6 LAB MCV 80.0-100.0 fL MCV 88.2 LAB MCH 26.0-34.0 pG MCH 27.2 LAB MCHC 30.5-36.0 g/dL MCHC 30.9 LAB RDWCV 11.5-15.0 % RDW-CV High 21.1 LAB PLTCT 150-400 k/uL Low Platelet Count 56 Result Comment: Result checked and verified No clot detected. LAB MPV 9.0-12.7 fL MPV <<DO NOT REPORT>> LAB ABSNUC <0.01 k/uL <0.01 Absolute nRBC Performed By: #### PT, CBC, BMP #### [facility] [address] [place], [place] [address] BASIC METABOLIC PANL Collected: 10/01/2017 Status: F Source: [place] 12:26 AM [facility] REPOSITORY TYPE CODE TESTS RESULT OUT OF REFERENCE UNITS RANGE LAB GLU 74-99 mg/dL Glucose 98 Result Comment: The [place] [employer] (ADA) provides guidance for cutoff values for fasting glucose and random glucose. The ADA defines fasting as no caloric intake for at least 8 hours. Fas ting plasma glucose results between 100 to 125 mg/dL indicate increased risk for diabetes (prediabetes). Fasting plasma glucose results greater than or equal to 126 mg/dL meet the criteria for diagnosis of diabetes. In the absence of unequivocal hyperglycemia, results should be confirmed by repeat testing. In a patient with classic symptoms of hyperglycemia or hyperglycemic crisis, random plasma glucose results greater than or equal to 200 mg/dL meet the criteria for diagnosis of diabetes. Reference: Standards of Medical Care in Diabetes 2016, [place] [employer]. Diabetes Care. 2016.39(Suppl 1). LAB BUN 7-21 mg/dL BUN 20 LAB CRET 0.58-0.96 mg/dL Creatinine High 1.15 LAB NA 136-144 mmol/L Sodium 136 LAB K 3.7-5.1 mmol/L Potassium 4.1 LAB CL 97-105 mmol/L Chloride 99 LAB CO2 22-30 mmol/L CO2 22 LAB AGAP 9-18 mmol/L Anion Gap 15 LAB CA 8.5-10.2 mg/dL Low Calcium, Total 8.0 LAB GFRAA eGFR- Amer. >60 LAB GFRNAA . eGFR-All Other Races 56 Result Comment: eGFR (Estimated GFR) Units of measure: mL/min/1.73 meters squared eGFR is derived from the reexpressed MDRD Study equation using the following parameters: serum creatinine, age, gender and race. The creatinine assay has been calibrated to be traceable to IDMS. An eGFR <60 mL/min/1.73m2 for >3 months is consistent with chronic kidney disease. Refer to KDOQI guidelines for clinical interpretation. In patients with unstable renal function, e.g. those with acute kidney injury, the eGFR may not accurately reflect actual GFR. Performed By: #### PT, CBC, BMP #### [facility] [address] [address] CONSULT Observed: 09/30/2017 Status: COMPLETED Source: [place] 3:19 PM [facility] REPOSITORY HNO ID: [id number] Author: Michelle Randhawa (Fel) Service: Hematology/Oncology Author Type: Fellow Type: Consults Filed: 09/30/2017 3:19 PM Note Text: Please see consult note. Michelle Randhawa MD Hematology and Oncology Fellow Pager: [phone] September 30, 2017 3:19 PM CONSULT Observed: 09/30/2017 Status: COMPLETED Source: [place] 2:59 PM [facility] REPOSITORY HNO ID: [id number] Author: Tanner Lakhani Service: Hematology/Oncology Author Type: Physician Type: Consults Filed: 09/30/2017 3:49 PM Note Text: Name: Paloma Cannno Age/Sex: 27 y/o F Bed-space: [address] [place] [address] Reason for Consult: H/o APS Context of current hospitalization/HPI: This is a 27 y/o female with PMHx of Triple-positive Anti-phospholipid Syndrome diagnosed in 2013?(catastrophic APS complicated by PE/DVT requiring extensive percutaneous thrombectomy of her IVC + lower extremity veins with placement of bilateral iliac venous stents and an IVC endograft), needing plasmapheresis q2 weeks, Diffuse Alveolar Hemorrhage (On prednisone and Cytoxan), who was admitted to MICU for hemoptysis, accompanied with dyspnea and hypoxia (needing 3-4 L/min of O2 via nasal cannula). Patient stated that she was coughing clear sputum streaked with blood but subsequently sputum was mixed with javon blood, with a total amount of blood being approximately 1 tablespoon. She denied any fever or chills. Patient follows with Dr. Andujar for APS and next scheduled plasma exchange is on 10/02. Of note, patient has a h/o HIT (however, anti- PF4 on 12/07/2013 negative) and is on coumadin for AC for VTE in the setting of APS. CXR on admission showed diffuse bilateral airspace opacities. Most recent APS antibody titers (09/18) were: ACL IgG 61 and Anti-B2GP1 IgG >150. Medical co-morbidities: PAST MEDICAL HISTORY Diagnosis Date - (HFpEF) heart failure with preserved ejection fraction (HCC) 02/20/2016 HFpEF w last EF 50-55% On Torsemide, coreg, hydralazine and imdur at home No signs of acute exacerbation on admission Plan: -Continue home medications - Anasarca 11/29/2013 - Anemia 03/10/2015 Chronic microcytic anemia. 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 Thrombosis, and Diffuse Alveolar Hemorrhage. On Warfarin and PLEX (Twice Weekly)? Plan: -Warfarin 5mg qday-holding for planned EGD on 01/11 d/t supra therapeutic INR -Cont. PO Prednisone 10mg MWFS and 5mg TTS -Pantoprazole for GI PPx of Above -Apharesis was supposed to be yesterday, will contact plasmapheresis team on recommendations - Antiphospholipid syndrome (HCC) - Catastrophic Antiphospholipid antibody syndrome 11/09/2013 - Cholelithiasis 01/11/2017 Likely cause of recent pancreatitis. Plan: Per general surgery, no acute surgical intervention at this time. Will await results of EGD. If active gastritis, favor outpatient cholecystectomy. If no active gastritis on EGD, plan for cholecystectomy this admission. - CKD (chronic kidney disease) stage 3, GFR 30-59 ml/min 07/06/2016 Baseline SCr 1.5-1.7 Plan: -renally dose medications -avoid nephrotoxic agents - DVT (deep venous thrombosis) (HCC) - Elevated CA-125 11/30/2013 244 - Essential hypertension 10/08/2015 Stable on home medications Plan: -continue to monitor on home meds - 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 Bivalirudin to Warfarin bridging - HIT (heparin-induced thrombocytopenia) (HCC) - Nontoxic multinodular goiter - Obese - Obesity, Class III, BMI >= 40 (morbid obesity) E66.01 10/18/2016 - Peripheral neuropathy 04/14/2016 - Severe protein-calorie malnutrition (HCC) 12/29/2015 Current medications: Current Facility-Administered Medications: gabapentin 300 mg cap(s) (NEURONTIN) 300 mg ORAL q 8 H cyclophosphamide 150 mg cap(s) (CYTOXAN) 150 mg ORAL DAILY sulfamethoxazole-trimethoprim 800-160 mg 1 tablet (BACTRIM DS,SEPTRA DS) 1 tablet ORAL -- warfarin 2.5 mg tab(s) (COUMADIN) 2.5 mg ORAL DAILY - WARFARIN ondansetron 8 mg tab(s) (ZOFRAN) 8 mg ORAL q 12 H PRN cetirizine 10 mg tab(s) (ZyrTEC) 10 mg ORAL BID amLODIPine 10 mg tab(s) (NORVASC) 10 mg ORAL DAILY pantoprazole DR 40 mg tab(s) (PROTONIX) 40 mg ORAL DAILY (6 AM) potassium chloride ER 40 mEq tab(s) (K-DUR, KLOR-CON) 40 mEq ORAL/FEEDING TUBE q 2 H PRN magnesium sulfate in water 4-6 g in sterile water 50 ml 4- 6 g INTRAVENOUS PRN sodium phosphate 45 mmol in NaCl 0.9% 250 mL 45 mmol INTRAVENOUS PRN insulin regular human injection (short acting) (NovoLIN R,HumuLIN R) SUBCUTANEOUS q 6 H insulin regular 250 units in NaCl 0.9% 250 mL iv infusion - ICU NOMOGRAM 0.5-30 Units/hr INTRAVENOUS CONTINUOUS insulin regular human iv bolus 2-10 Units 2-10 Units INTRAVENOUS PRN dextrose 50% in water 25-50 mL syringe 12.5-25 g INTRAVENOUS PRN dextrose 40 % 15 g 15 g ORAL PRN glucagon 1 mg injection (GLUCAGEN) 1 mg SUBCUTANEOUS PRN acetaminophen 650 mg tab(s) (TYLENOL) 650 mg ORAL/FEEDING TUBE q 6 H PRN And acetaminophen 650 mg suppository (TYLENOL) 650 mg RECTAL q 6 H PRN And oxyCODONE IR 5-10 mg tab(s) (ROXICODONE) 5-10 mg ORAL/FEEDING TUBE q 4 H PRN And HYDROmorphone 0.5-1 mg injection (DILAUDID) 0.5-1 mg INTRAVENOUS q 4 H PRN warfarin order for discharge OTHER PRN predniSONE 80 mg tab(s) (DELTASONE) 80 mg ORAL DAILY Family History: Family History Problem Relation Age of Onset - Breast Cancer Mother spine BRCA neg - Ovarian cyst [OTHER] Mother - ovarian cyst [OTHER] Sister - Thyroid No Family History Social History: Social History Marital status: Spouse name: Years of education: Number of children: Occupational History Occupation 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 Social History Main Topics Smoking status: Never Smoker Smokeless status: Never Used Alcohol use: No Drug use: No Sexual activity: Not Currently RoS: Negative other than that mentioned in the HPI. Physical Exam: HEENT: Atraumatic normocephalic. Lungs: Few crackles heard at bases. CVS: S1 S2 heard, no murmurs Abdomen: Soft, non-tender, normo-active bowel sounds. Extremities: Pedal edema 1-2+ with some erythema/warmth on palpation of bilateral legs. Neurologic: Patient AAO x 3, non-focal. Pertinent Diagnostics: . CBC, Coags, BMP, Mg, Phos Recent Labs 09/30/17 1239 09/30/17 0837 09/29/17 2347 09/29/17 1804 WBC -- 3.38* 5.27 6.48 HB -- 7.8* 7.9* 8.7* HCT -- 25.6* 25.9* 28.2* PLT -- 50* 43* 41* INR 1.9* -- -- 2.1* APTT -- -- -- 33.8* NA -- -- 133* 135* K -- -- 3.8 3.5* CHLOR -- -- 97 98 CO2 -- -- 21* 22 BUN -- -- 20 21 CREAT -- -- 1.13* 1.13* GLUC -- -- 116* 74 CA -- -- 8.2* 8.8 MG -- -- 1.8 1.7 P -- -- 4.0 -- Liver Function, Amylase, AND Lipase Recent Labs 09/29/17 2347 09/29/17 1804 TPROT 5.8* 6.0* ALB 3.5* 3.7* ALT 6* <5* AST 14 12* ALKPHOS 56 59 TBILI 0.7 1.0 Assessment/Plan: This is a 27 y/o female with PMHx of Triple-positive Anti-phospholipid Syndrome diagnosed in 2013?(catastrophic APS complicated by PE/DVT), needing plasmapheresis q2 weeks, Diffuse Alveolar Hemorrhage (On prednisone and Cytoxan), who was admitted to MICU for hemoptysis, accompanied with dyspnea and hypoxia (needing 3-4 L/min of O2 via nasal cannula). CXR on admission showed diffuse bilateral airspace opacities, consistent with alveolar hemorrage. Most recent APS antibody titers (09/18) were: ACL IgG 61 and Anti-B2GP1 IgG >150. -Patient is scheduled for next plasma exchange on 10/02 (Monday). -c/w Coumadin with INR monitoring. -Agree with increasing prednisone to 1mg/kg body weight per Pulmonary for diffuse alveolar hemorrhage. -Thrombocytopenia multifactorial, 2/2 increased consumption in the setting of APS and drug effect from Cytoxan. Monitor CBC daily, transfuse if platelets<50,000 given diffuse alveolar hemorrhage. Case seen and discussed with Dr. Lakhani. Hematology will follow. Michelle Randhawa MD Hematology and Oncology Fellow Pager: [phone] September 30, 2017 3:[address] FRED STONE, SR. HOSPITAL STAFF PHYSICIAN NOTE OF PERSONAL INVOLVEMENT IN CARE I have reviewed the history and physical examination obtained and documented by the fellow and I personally participated in the fernandes components. I have discussed the case and management of the patient's care. The following comments revise or confirm relevant fernandes components of their note. IMPRESSION: This is a 27 year old female who presents with APS syndrome, s/p DVT/PE's, had alveolar hemorrhage, treated with cytoxan and prednisone, along with plasmapheresis - due for next session Monday. Had about a tablespoon hemoptysis, more SOB, so came to ER and sent to G[facility]. Exam on O2, comfortable with breathing. NAD No nodes Cushingoid CVRRR, GR II/ BRITTNEY LLSB Resp rare rhonchi in bases. Abd slightly protuberant, no organomegaly Neuro non focal Extr -chronic erythematous changes distally, likely chronic venous insufficiency Assess: I remember her from previous admissions (as Nelli), now. Agree with all care you are giving. Would not think it is so urgent to pherese over the weekend - will inform Dr. Claudio about her, and aim to maintain scheduled pheresis on Monday. Tanner Lakhani MD Staff Hematology Pager [phone] Date of Service: 09/30/2017 Time of Service: 3:49 PM PROGRESS Observed: 09/30/2017 Status: COMPLETED Source: [place] 1:21 PM [facility] REPOSITORY HNO ID: [id number] Author: Niharika Laird MD Service: Critical Care Author Type: Resident Type: Progress Notes Filed: 09/30/2017 1:21 PM Note Text: SERVICE DATE: 09/30/2017 SERVICE TIME: 1:21 PM MICU PROGRESS NOTE Admission Date: 09/29/2017 Hospital Day # 1 SUBJECTIVE Interval HPI: Stable OBJECTIVE Vital Signs (last filed) Range in last 24h Temp: 36.3 ?C (97.3 ?F) (09/30/17 0800) Temp Min: 36.3 ?C (97.3 ?F) Max: 37.2 ?C (98.9 ?F) Pulse: 110 (09/30/17 1300) Pulse Min: 94 Max: 121 Resp: 23 (09/30/17 1300) Resp Min: 16 Max: 36 BP: 145/68 (09/30/17 1300) BP Min: 132/59 Max: 166/90 MAP Non Invasive (Mean Arterial Pressure): 98 (09/30/17 1300) MAP Non Invasive (Mean Arterial Pressure) Min: 97 Max: 121 No Data Recorded SpO2: 95 % (09/30/17 1300) SpO2 Min: 89 % Max: 99 % Pain Score: 2/10 (normal, tolerable level for patient) (09/30/17 1200) Fluid Balance: Intake/Output Summary (Last 24 hours) at 09/30/17 0659 Last data filed at 09/30/17 0400 Gross per 24 hour Intake 0 ml Output 5 ml Net -5 ml Last Weight: 97.2 kg (214 lb 4.6 oz) (09/29/17 2300) Admit Weight: 97.1 kg (214 lb) (09/29/17 1718) DIET REGULAR Lines, Drains, and Airways Line Central Line Single Lumen 09/29/17 Tunneled Left Chest 1 day Dialysis / Apheresis Double Lumen 09/29/17 Admission to Hospital Tunneled Left Chest 1 day Vent/Oxygen: supplemental oxygen No Data Recorded Physical Examination Performed Oral Mucosa: Moist mucous membranes Eyes: PERRLA Neck: Unremarkable; No adenopathy or JVD Cardiovascular: Regular rhythm Respiratory: Clear to auscultation Abdomen: Soft and Nontender Extremities: Edema- Yes Peripheral Pulses- Present all extremities Capillary Refill- less than 3 seconds Skin: Abnormalities- No Breakdown- No Neurologic: Awake, oriented and Alert Infusion Medications insulin regular Diagnostic tests reviewed today: Most recent labs and imaging results. PATIENT CHECKLIST ? Are restraints necessary: No ? Deep vein thrombosis prophylaxis administered?on anticoagulation ? Stress ulcer prophylaxis? No, not indicated. ? Nasogastric tube? No ? Zuniga catheter necessary? No ? Is central line essential? Yes ? Plan discussed with assigned RN? Yes ? Family updated within last 24 hours? Yes CARE COORDINATION: Patient Summary: 27 years old woman with PMHx of Anti-phospholipid Syndrome diagnosed in 2013 (catastrophic APAS c/b PE/DVT requiring extensive percutaneous thrombectomy of her IVC + lower extremity veins with placement of bilateral iliac venous stents and an IVC endograft, found to be positive for lupus anticoagulant, [id number], and anti-cardiolipin antibodies for which she gets plasmapheresis q2 weeks and is on daily prednisone 5 mg daily). Previous hx of Diffuse Alveolar Hemorrhage - on cyclophosphamide. 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 Left ventricular systolic function is mildly decreased. EF = 50 ? 5% (visual est.) Indeterminate left ventricular diastolic dysfunction.GERD. Presented to the ED with acute onset of SOB, hypoxemia and hemoptysis ? Major Interval Events: 09/29: Admitted to the MICU ASSESSMENT AND PLAN Overview, Assessment AND Plan, all Hosp Problems Active Hospital Problems as of 09/30/2017 Noted - Resolved Hospital (HFpEF) heart failure with preserved ejection fraction (HCC) 02/20/2016 - Present Overview Likely CTEPH induced? Following with Cardiology No CHF physiology Last ECHO 08/2017: The left ventricle is dilated. Left ventricular systolic function is mildly decreased. EF = 50 ? 5% (visual est.) Indeterminate left APS (antiphospholipid syndrome) (HCC) 11/29/2016 - Present Overview - This was diagnosed in when she presented catastrophically with PE/DVT needing extensive percutaneous thrombectomy of her IVC and lower extremity veins followed by placement of B/L iliac venous stents and an endograft into her IVC. - She has a history of HIT - Initially give IV Rituximab with no benefits and complications of associated cardiotoxicity - Due to her being triple positive with + lupus anticoagulant, + [id number], and + anti-cardiolipin antibodies, she is on plasmapheresis every other week since and is also on Prednisone 5 mg daily. - Also complicated by diffuse alveolar hemorrhage, as she has had 5 acute episodes of respiratory decline since , three of which were associated with her needing ET intubation and mechanical ventilation, last being in 07/26 - She was started on Cytoxan titrated to 200 mg daily on 06/2017 but was stopped recently when she was admitted for CLABSI. Resumed on 09/12/15 as 150 mg QD Plan - She will need Staff physician to sing order to continue home dose Cytoxan - Plan to continue plasmapheresis every other week, Next session Monday10/02/17 - Continue Warfarin 2.5 - Continue prednisone - Monitor respiratory function - O2 to sat > 95% - BPH - Monitor Hb - Monitor INR - Avoid Heparin products CKD (chronic kidney disease) stage 3, GFR 30-59 ml/min 07/06/2016 - Present Overview Renal vein thrombosis with additional insult in from contrast induced nephropathy. Per records her baseline is 1.1. Plan: - Renally dose medication - Gentle hydration overnight - Avoid nephrotoxins. - Strict I/O - Daily weight HTN (hypertension) 10/08/2015 - Present Overview On Amlodipine 5 mg QD Peripheral neuropathy 04/14/2016 - Present Overview Continue Neurontin Hemoptysis 09/29/2017 - Present Overview Patient has been doing well at home off daytime oxygen. PSO2 95% on RA most of the time. This afternoon patient developed a cute onset cough fits ~ 20 times associated with SOB and desaturation down to 72% on RA. She was coughing clear sputum initially streaked with blood but later it was mixed with blood. Per patient total amount of blood lost close to one table spoon. CXR in the ED Shallow inspiration. Diffuse bilateral airspace opacities may represent alveolar hemorrhage as seen on recent chest CT. ?No focal consolidation. ?No large pleural effusion or pneumothorax. Previous CT scan was done on 09/11/17: Diffuse bilateral confluent areas of groundglass opacity throughout both lungs in a centrilobular distribution pattern with mild scattered areas of air trapping. ?Findings are concerning for diffuse alveolar hemorrhage in the clinical setting of anti-phospholipid antibody syndrome, although, infection, edema, inhalation lung disease or hypersensitivity pneumonitis can have a similar appearance. - Increase prednisone to 1 mg/kg - vascular medicine consult for AC - Monitor CBC - Monitor INR History of HIT (heparin-induced thrombocytopenia) (HCC) 03/14/2017 - Present Overview She is on coumadin for this reason Plan: - Avoid heparin products - Daily CBC Hematology consulted for plasmapharesis Plan of care discussed with: ICU Team SIGNATURE: Niharika Laird MD PATIENT NAME: Paloma Cannon DATE: September 30, 2017 TIME: 1:21 PM PAGER/CONTACT #: [phone] PROTIME Collected: 09/30/2017 Status: F Source: [place] 12:39 PM [facility] REPOSITORY TYPE CODE TESTS RESULT OUT OF RANGE REFERENCE UNITS LAB PSEC 9.7-13.0 sec High PT Sec 18.5 LAB INR 0.9-1.3 High PT INR 1.9 Result Comment: Vitamin K Antagonist (VKA) Therapeutic Range: INR 2 to 3 (Target INR of 2.5) Note: For patients treated with VKA drugs, such as warfarin, the [place] 2012 Guideline recommends a therapeutic INR range of 2 to 3 (target INR of 2.5). This recommendation includes high-risk patients with antiphospholipid syndrome with previous arterial or venous thromboembolism, current-generation mechanical or bioprosthetic aortic heart valve replacement. Note: Patients with mechanical aortic valve replacement and additional risk factors for thromboembolic events (atrial fibrillation, previous thromboembolism, LV dysfunction, hypercoagulable conditions) or an older generation mechanical AVR (i.e., ball in-Cage) or any mechanical MVR should have a INR therapeutic range of 2.5 to 3.5 (target INR of 3). Guyatt GH, et al. Chest 2012, 141:7S-47S Diogenes RA, et al. [facility] 2017, 70: 252-289 Performed By: #### PT #### [facility] [address] [place], [place] [address] NUTRITION Observed: 09/30/2017 Status: COMPLETED Source: [place] 10:52 AM [facility] REPOSITORY HNO ID: [id number] Author: Camilla Jose (Diet-T) Service: Nutrition Therapy Author Type: Surveyor Helper Type: Nutrition Filed: 09/30/2017 10:53 AM Note Text: NUTRITION THERAPY FOLLOW-UP NOTE SERVICE DATE: 09/30/2017 SERVICE TIME: 8:30 AM Anthropometrics: Height: 160 cm (5' 3) Current Weight: Weight: 97.2 kg (214 lb 4.6 oz) Body mass index is 37.96 kg/(m2). Loss of lean body mass/visual muscle wasting: no Admitting Diagnosis: Hypoxia [R09.02] Present Diet Order: Regular Is the patient having any pain that is interfering with oral/enteral intake? No Allergies: ALLERGIES Allergen Reactions - Rhubarb Rash, Hives - Heparin Other: See Comments Per patient history of HIT - was on angiomax however then took l fondaparinux for bridging to coumadin. - Iv Contrast [Iodine] Other: See Comments shuts kidneys down per patient - Rituximab Other: See Comments Elevated cardiac enzymes Reason for Visit: Food allergies: Confirmed allergy to rhubarb with patient, she reports hives as a reaction with just touching this item. This item was noted in NSS. Nothing else needed at this time. Nursing Admission Assessment Malnutrition Score Tool: Plan of Care: Recommendation No problems noted at this time. Will screen again within 7 days Discharge Plan: Diet as ordered by Physician MNT Billing Type: Routine Care/15 min 1 unit SIGNATURE: Kaushik Dolan PATIENT NAME: Paloma Cannon DATE: September 30, 2017 TIME: 10:52 AM PAGER: [phone] PROGRESS Observed: 09/30/2017 Status: COMPLETED Source: [place] 10:22 AM [facility] REPOSITORY HNO ID: [id number] Author: Coy Lambert Service: Pulmonary Disease Author Type: Physician Type: Progress Notes Filed: 09/30/2017 10:39 AM Note Text: DR. FRED STONE, SR. HOSPITAL STAFF PHYSICIAN NOTE OF PERSONAL INVOLVEMENT IN CARE I have reviewed the progress note obtained and documented by the resident and I personally participated in the fernandes components. I have discussed the case and management of the patient's care. The following comments revise or confirm relevant fernandes components of the note. 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 Chronic thrombocytopenia. H/o HIT ? in the record. Admitted with hemoptyss, which has subsided. On - LPmMNC. Platelets 50's INR 2.1 No evidence of alveolar hemorrhage in the last 2-3 bronchs with BAL (done for hemoptysis). PLAN: monitor in ICU for now, continue warfarin, pred and cytoxan, needs PLEX on Monday Patient/Family Updated: Patient, Paloma Cannon, updated regarding the goals of care, medical plan for the day, outside solar sales consultant recommendations, medical disposition and current medical condition/prognosis as and if clinically indicated. All questions and concerns were answered and addressed at this juncture. This patient has a high probability of sudden, clinically significant deterioration, which requires the highest level of physician preparedness to intervene urgently. I managed/supervised life or organ supporting interventions that required frequent physician assessment. I devoted my full attention to the direct care of this patient for the amount of time indicated below. Time I spent with family or surrogate(s) is included only if the patient was incapable of providing the necessary information or participating in medical decision making. Time devoted to teaching and to any procedures I billed separately is not included. Critical Care Documentation: The patient has the following organ/system impairment(s): hemoptysis Time spent providing critical care services: 30 minutes. SIGNATURE: Coy Lambert MD [facility] CONSULT Observed: 09/30/2017 Status: COMPLETED Source: [place] 9:52 AM [facility] REPOSITORY [facility] ID: [id number] Author: Darcie Choi MD Service: Vascular Medicine Author Type: Physician Type: Consults Filed: 09/30/2017 3:41 PM Note Text: VASCULAR MEDICINE INITIAL CONSULT SERVICE DATE: 09/30/2017 SERVICE TIME: 9:52am Requesting Provider: Dr. Allawy Allawy Opinion/advice regarding: anticoagulation Subjective CHIEF COMPLAINT: hemoptysis HPI: This is a 27 year old female well known for: -history of antiphospholipid syndrome (triple positive) on long-term anticoagulation w/warfarin, IVC thrombosis s/p s/p b/l iliac v. stents and Endoglix AFX endograft at the inferior vena caval bifurcation, hepatic vein thrombosis and DAHx 5(on cytoxan) w/ every other week plasmapheresis since 2013 (managed by Dr. Andujar, Hematology). -remote HIT -HTN -Heart failure w/ preserved ejection fraction -CKD -anemia -s/p C. Diff. infection 08/2017 -obesity Admitted yesterday with blood tinged sputum and worsening shortness of breath and chest pain. Patient reports having rapidly become short of breath yesterday afternoon also experiencing some chest tightness. At the same time, she reports about 20 episodes of hemoptysis (total of a tea spoon) INR was 2.1 on admission. Patient states that she has not had other episodes since admission. Feels much better today No other signs of bleeding. Compliant w/ her warfarin. Last supratherapeutic INR was more than a month ago. ? PAST MEDICAL HISTORY Diagnosis Date - (HFpEF) heart failure with preserved ejection fraction (HCC) 02/20/2016 HFpEF w last EF 50-55% On Torsemide, coreg, hydralazine and imdur at home No signs of acute exacerbation on admission Plan: -Continue home medications - Anasarca 11/29/2013 - Anemia 03/10/2015 Chronic microcytic anemia. 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 Thrombosis, and Diffuse Alveolar Hemorrhage. On Warfarin and PLEX (Twice Weekly)? Plan: -Warfarin 5mg qday-holding for planned EGD on 01/11 d/t supra therapeutic INR -Cont. PO Prednisone 10mg MWFS and 5mg TTS -Pantoprazole for GI PPx of Above -Apharesis was supposed to be yesterday, will contact plasmapheresis team on recommendations - Antiphospholipid syndrome (HCC) - Catastrophic Antiphospholipid antibody syndrome 11/09/2013 - Cholelithiasis 01/11/2017 Likely cause of recent pancreatitis. Plan: Per general surgery, no acute surgical intervention at this time. Will await results of EGD. If active gastritis, favor outpatient cholecystectomy. If no active gastritis on EGD, plan for cholecystectomy this admission. - CKD (chronic kidney disease) stage 3, GFR 30-59 ml/min 07/06/2016 Baseline SCr 1.5-1.7 Plan: -renally dose medications -avoid nephrotoxic agents - DVT (deep venous thrombosis) ([facility]) - Elevated CA-125 11/30/2013 244 - Essential hypertension 10/08/2015 Stable on home medications Plan: -continue to monitor on home meds - 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 Bivalirudin to Warfarin bridging - HIT (heparin-induced thrombocytopenia) ([facility]) - Nontoxic multinodular goiter - Obese - Obesity, Class III, BMI >= 40 (morbid obesity) E66.01 10/18/2016 - Peripheral neuropathy 04/14/2016 - Severe protein-calorie malnutrition (HCC) 12/29/2015 PAST SURGICAL HISTORY Procedure Laterality Date - PAST SURGICAL HISTORY OF 2012 IVC thrombectomy - PAST SURGICAL HISTORY OF 2012 b/l iliac v. 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 SOCIAL HISTORY: Smoking: No Drink alcohol: no : no gabapentin (NEURONTIN) 300 mg capsule Take 600mg in the morningTake 300 mg in the afternoonTake 300mg in the evening COMPOUNDED PRESCRIPTION O2 Condenser- whichever is covered by patient's insurance Acute on chronic respiratory failure with hypoxia (HCC) ?- Primary J96.21Pulmonary HTN I27.20SIRS (systemic inflammatory response syndrome) (HCC) R65.10 cyclophosphamide (CYTOXAN) 50 mg capsule Take 3 capsules by mouth once daily. predniSONE (DELTASONE) 5 mg tablet Take 1 tablet by mouth once daily. warfarin (COUMADIN) 2.5 mg tablet take by mouth as directed in the evening to keep INR between 2.0-3.0 amLODIPine (NORVASC) 5 mg tablet Take 2 tablets by mouth once daily. HOLD FOR SBP <120 sulfamethoxazole-trimethoprim (BACTRIM DS) 800-160 mg per tablet Take 1 tablet by mouth every Monday,Monday,Monday. pantoprazole DR (PROTONIX) 40 mg tablet Take 1 tablet by mouth DAILY (6 AM). cetirizine 10 mg tablet Take 1 tablet by mouth once daily. ondansetron (ZOFRAN, HYDROCHLORIDE,) 8 mg tablet Take 1 tablet by mouth every 12 hours as needed for Nausea/Vomiting. fluticasone (FLONASE) 50 mcg/actuation nasal spray Use 1 [place] in each nostril once daily. senna 8.6 mg tab Take 1 tablet by mouth twice daily as needed. Current Facility-Administered Medications: sulfamethoxazole-trimethoprim 800-160 mg 1 tablet (BACTRIM DS,SEPTRA DS) 1 tablet ORAL -- gabapentin 300 mg cap(s) (NEURONTIN) 300 mg ORAL q 8 H ondansetron 8 mg tab(s) (ZOFRAN) 8 mg ORAL q 12 H PRN cetirizine 10 mg tab(s) (ZyrTEC) 10 mg ORAL BID cyclophosphamide 150 mg cap(s) (CYTOXAN) 150 mg ORAL DAILY amLODIPine 10 mg tab(s) (NORVASC) 10 mg ORAL DAILY pantoprazole DR 40 mg tab(s) (PROTONIX) 40 mg ORAL DAILY (6 AM) potassium chloride ER 40 mEq tab(s) (K-DUR, KLOR-CON) 40 mEq ORAL/FEEDING TUBE q 2 H PRN magnesium sulfate in water 4-6 g in sterile water 50 ml 4- 6 g INTRAVENOUS PRN sodium phosphate 45 mmol in NaCl 0.9% 250 mL 45 mmol INTRAVENOUS PRN insulin regular human injection (short acting) (NovoLIN R,HumuLIN R) SUBCUTANEOUS q 6 H insulin regular 250 units in NaCl 0.9% 250 mL iv infusion - ICU NOMOGRAM 0.5-30 Units/hr INTRAVENOUS CONTINUOUS insulin regular human iv bolus 2-10 Units 2-10 Units INTRAVENOUS PRN dextrose 50% in water 25-50 mL syringe 12.5-25 g INTRAVENOUS PRN dextrose 40 % 15 g 15 g ORAL PRN glucagon 1 mg injection (GLUCAGEN) 1 mg SUBCUTANEOUS PRN acetaminophen 650 mg tab(s) (TYLENOL) 650 mg ORAL/FEEDING TUBE q 6 H PRN And acetaminophen 650 mg suppository (TYLENOL) 650 mg RECTAL q 6 H PRN And oxyCODONE IR 5-10 mg tab(s) (ROXICODONE) 5-10 mg ORAL/FEEDING TUBE q 4 H PRN And HYDROmorphone 0.5-1 mg injection (DILAUDID) 0.5-1 mg INTRAVENOUS q 4 H PRN warfarin order for discharge OTHER PRN predniSONE 80 mg tab(s) (DELTASONE) 80 mg ORAL DAILY ALLERGIES Allergen Reactions - Rhubarb Rash, Hives - Heparin Other: See Comments Per patient history of HIT - was on angiomax however then took l fondaparinux for bridging to coumadin. - Iv Contrast [Iodine] Other: See Comments shuts kidneys down per patient - Rituximab Other: See Comments Elevated cardiac enzymes CANCER SCREENING QUESTIONS: N/A Objective REVIEW OF SYSTEMS: GENERAL: Fever: No Chills: No Night sweats: No Changes in weight: No NEUROLOGICAL: Headaches: No Seizures: No Passing out: No Numbness, tingling or sensation of pins and needles: No HEAD, EYES, EARS, NOSE, AND THROAT: Changes in hearing: No Changes in vision: No Nose bleeds: No CARDIOVASCULAR: Chest pain or pressure: Some Palpitations: No Irregular heart rate: No RESPIRATORY: Cough: No Wheezing: No Shortness of breath: YES Shortness of breath with exertion: YES Coughing up blood: YES GASTROINTESTINAL: Abdominal discomfort: No Nausea: No Vomiting: No Diarrhea: No Constipation: No Difficulty swallowing: No Pain with swallowing: No Stomach pain after eating: No Passing blood with bowel movement: No Black tarry stool: No GENITOURINARY: Pain with urination: N/A Blood in urine: No SEVERITY OF ILLNESS COORDINATOR: Abnormal vaginal bleeding: No History of loss: N/A EXTREMITY: Edema (swelling): YES Pain with walking: No MUSCULOSKELETAL: Joint pain: No Joint swelling: No Back pain: No Muscle pain or ache: No SKIN: Rash: No Lesions: No Sores: N/A Ulcers: N/A Tenderness: N/A Skin cancer: N/A HEMATOLOGY: Easy bruising: No Blood transfusions: No PSYCHOLOGICAL: Do you ever feel blue or nervous: No PHYSICAL EXAM: Vital Signs: BP 146/78 Pulse 100 Temp 36.3 ?C (97.3 ?F) (Oral) Resp 19 Ht 160 cm (5' 3) Wt 97.2 kg (214 lb 4.6 oz) SpO2 95% BMI 37.96 kg/m2 General Appearance: Cooperative, in no acute distress, alert. On 4 liters of oxygen HEENT: Anicteric sclera Heart: RRR without murmur, gallop or rubs. Lungs: CTA=Bilat. Abdomen: Abdomen soft, non-tender. Upper Extremities:No deformities, edema, or skin discoloration. Good capillary refill. Lower Extremities: Feet and toes warm. Positive for mild distal pitting edema. Good capillary refill Normal pulses for radial, dorsalis pedis and posterior tibial pulses bilaterally. Skin: reddish discoloration of both shins DATA: Diagnostic tests reviewed for today's visit: Most recent labs and imaging results. Component Latest Ref Rng AND Units 09/18/2017 09/29/2017 09/29/2017 09/30/2017 6:04 PM 11:47 PM WBC 3.70 - 11.00 k/uL 5.69 6.48 5.27 3.38 (L) RBC 3.90 - 5.20 m/uL 3.23 (L) 3.15 (L) 2.93 (L) 2.85 (L) Hemoglobin 11.5 - 15.5 g/dL 8.6 (L) 8.7 (L) 7.9 (L) 7.8 (L) Hematocrit 36.0 - 46.0 % 28.0 (L) 28.2 (L) 25.9 (L) 25.6 (L) MCV 80.0 - 100.0 fL 86.7 89.5 88.4 89.8 MCH 26.0 - 34.0 pG 26.6 27.6 27.0 27.4 MCHC 30.5 - 36.0 g/dL 30.7 30.9 30.5 30.5 RDW-CV 11.5 - 15.0 % 21.3 (H) 21.4 (H) 21.6 (H) 21.4 (H) Platelet Count 150 - 400 k/uL 78 (L) 41 (L) 43 (L) 50 (L) Component Latest Ref Rng AND Units 09/29/2017 09/29/2017 6:04 PM 11:47 PM Protein, Total 6.3 - 8.0 g/dL 6.0 (L) 5.8 (L) Albumin 3.9 - 4.9 g/dL 3.7 (L) 3.5 (L) Calcium 8.5 - 10.2 mg/dL 8.8 8.2 (L) Bilirubin, Total 0.2 - 1.3 mg/dL 1.0 0.7 Alkaline Phosphatase 32 - 117 U/L 59 56 AST 13 - 35 U/L 12 (L) 14 Glucose 74 - 99 mg/dL 74 116 (H) BUN 7 - 21 mg/dL 21 20 Creatinine 0.58 - 0.96 mg/dL 1.13 (H) 1.13 (H) Sodium 136 - 144 mmol/L 135 (L) 133 (L) Potassium 3.7 - 5.1 mmol/L 3.5 (L) 3.8 Chloride 97 - 105 mmol/L 98 97 CO2 22 - 30 mmol/L 22 21 (L) Anion Gap 9 - 18 mmol/L 15 15 ALT 7 - 38 U/L <5 (L) 6 (L) eGFR- >60 >60 eGFR-All Other Races . 57 57 Component Latest Ref Rng AND Units 09/29/2017 PT INR 0.9 - 1.3 2.1 (H) APTT 23.0 - 32.4 sec 33.8 (H) XR Chest 09/30/2017 IMPRESSION: Lines, tubes, and devices: ?Left spondylolysis catheter and indwelling central venous catheter are stable. Lungs and pleura: ?Shallow inspiration. ?Diffuse bilateral airspace opacities may represent alveolar hemorrhage as seen on recent chest CT. ? No focal consolidation. ?No large pleural effusion or pneumothorax. Cardiomediastinal silhouette: ?Enlarged cardiomediastinal silhouette. ? Hilar vasculature structures are grossly unremarkable. Other: ?Osseous structures are grossly unremarkable. CT CHEST 09/11/2017 IMPRESSION: Diffuse bilateral confluent areas of groundglass opacity throughout both lungs in a centrilobular distribution pattern with mild scattered areas of air trapping. ?Findings are concerning for diffuse alveolar hemorrhage in the clinical setting of anti-phospholipid antibody syndrome, although, infection, edema, inhalation lung disease or hypersensitivity pneumonitis can have a similar appearance. Multiple small left lower lobe dependent nodular opacities probably infectious or aspiration induced. LE venous DUS 06/08/2017: IMPRESSION: TECHNICALLY LIMITED STUDY. POSITIVE STUDY FOR CHRONIC PROXIMAL DVT IN THE RIGHT AND LEFT LOWER EXTREMITIES. POSITIVE STUDY FOR CHRONIC CALF DVT IN THE RIGHT AND LEFT LOWER EXTREMITIES. POSITIVE STUDY FOR SUPERFICIAL THROMBOPHLEBITIS IN THE RIGHT AND LEFT LOWER EXTREMITIES. NONOCCLUSIVE THROMBUS IN BILATERAL LOWER EXTREMITIES. ?EXAMINATION IS ESSENTIALLY UNCHANGED COMPARED TO ULTRASOUND PERFORMED ON 03/16/2017. 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 Andujar, Hematology). _Recurrent hemoptyses w/ diffuse bilateral airspace opacities may represent alveolar hemorrhage, in the setting of chronic thrombocytopenia Pt stable, mildly hypoxic, no need for transfusions INR was therapeutic yesterday Last dose of coumadin yesterday Plan => We would keep the patient in the ICU for clinical surveillance => We would recommend holding her coumadin until her PLEX (as generally done) => We would get CBC, sCr and INR daily => If INR goes <1.5, we would start patient on prophylactic dose of fondaparinux (2.5mg sc daily) given the very high risk of thrombosis in this patient => PLEX scheduled on Monday 10/02 SIGNATURE: Linnette Almendarez MD PATIENT NAME: Paloma Cannon DATE: September 30, 2017 TIME: 1:45 PM PAGER/CONTACT #: [phone] . Staff addendum: I interviewed and examined Paloma Cannon, and reviewed and confirmed the findings of the fellow with additional comments below. The assessment and plan was formulated in discussion with the patient and fellow, and is also outlined below. Pleasant 27yo F with hx of APS, well known to our service. Currently admitted for some mild hemoptysis. She has had increasing O2 requirements compared to baseline -- seen while on 4L. She states that she otherwise feels well, and that the hemoptysis wasn't too bad but given her history she needed to be checked out (agree!). We are consulted regarding anticoagulation mgmt. Hematology also contacted re APS. She had her last dose of warfarin last night (Monday) and INR yesterday was 2.1. She had anticipated holding warfarin 09/30-10/01 for PLEX on Monday 10/02 as per schedule. At this time, recommend rechecking INR today. If INR is <1.5, then start prophylactic dose fondaparinux 2.5mg SC QD over the weekend. Must avoid all heparin products due to hx of HIT. Darcie Choi MD Vascular Medicine Staff CBC Collected: 09/30/2017 Status: F Source: [place] 8:37 AM [facility] REPOSITORY TYPE CODE TESTS RESULT OUT OF REFERENCE UNITS RANGE LAB WBC 3.70-11.00 k/uL Low WBC 3.38 LAB RBC 3.90-5.20 m/uL Low RBC 2.85 LAB HGB 11.5-15.5 g/dL Low Hemoglobin 7.8 LAB HCT 36.0-46.0 % Low Hematocrit 25.6 LAB MCV 80.0-100.0 fL MCV 89.8 LAB MCH 26.0-34.0 pG MCH 27.4 LAB MCHC 30.5-36.0 g/dL MCHC 30.5 LAB RDWCV 11.5-15.0 % RDW-CV High 21.4 LAB PLTCT 150-400 k/uL Low Platelet Count 50 Result Comment: Result checked and verified No clot detected. LAB MPV 9.0-12.7 fL MPV <<DO NOT REPORT>> LAB ABSNUC <0.01 k/uL <0.01 Absolute nRBC Performed By: #### CBC #### [facility] [address] [place], [place] [address] CBC AND DIFFERENTIAL Collected: 09/29/2017 Status: F Source: [place] 11:47 PM [facility] REPOSITORY TYPE CODE TESTS RESULT OUT OF REFERENCE UNITS RANGE LAB WBC 3.70-11.00 k/uL WBC 5.27 LAB RBC 3.90-5.20 m/uL Low RBC 2.93 LAB HGB 11.5-15.5 g/dL Low Hemoglobin 7.9 LAB HCT 36.0-46.0 % Low Hematocrit 25.9 LAB MCV 80.0-100.0 fL MCV 88.4 LAB MCH 26.0-34.0 pG MCH 27.0 LAB MCHC 30.5-36.0 g/dL MCHC 30.5 LAB RDWCV 11.5-15.0 % RDW-CV High 21.6 LAB PLTCT 150-400 k/uL Low Platelet Count 43 Result Comment: Result checked and verified No clot detected. LAB MPV 9.0-12.7 fL MPV <<DO NOT REPORT>> LAB ANEUT % Neut% 88.0 LAB AANEUT 1.45-7.50 k/uL Abs 4.64 Neut LAB ALYMP % 2.7 Lymph% LAB AALYMP 1.00-4.00 k/uL Abs 0.14 Low Lymph LAB AMONO % [place]% 6.1 LAB AAMONO <0.87 k/uL Abs 0.32 [place] LAB AEOS % 2.8 Eosin% LAB AAEOS <0.46 k/uL Abs 0.15 Eosin LAB ABASO % Baso% 0.4 LAB AABASO <0.11 k/uL Abs <0.03 Baso LAB AUNRBC 0 /100 WBC NRBCs 0.0 LAB ABNRBC <0.01 k/uL <0.01 Absolute nRBC LAB DTYP DTYPE Auto Diff Performed By: #### CBCDIF, CMP, MG1, PHOS #### [facility] [address] [place] [id number] COMP METABOLIC PANEL Collected: 09/29/2017 Status: F Source: [place] 11:47 PM [facility] REPOSITORY TYPE CODE TESTS RESULT OUT OF REFERENCE UNITS RANGE LAB TP 6.3-8.0 g/dL Low Protein, Total 5.8 LAB ALB 3.9-4.9 g/dL Low Albumin 3.5 LAB CA 8.5-10.2 mg/dL Low Calcium, Total 8.2 LAB TBIL 0.2-1.3 mg/dL Bilirubin, Total 0.7 LAB ALKP 32-117 U/L Alkaline Phosphatase 56 LAB AST 13-35 U/L AST 14 LAB GLU 74-99 mg/dL Glucose High 116 Result Comment: The [place] [employer] (ADA) provides guidance for cutoff values for fasting glucose and random glucose. The ADA defines fasting as no caloric intake for at least 8 hours. Fas ting plasma glucose results between 100 to 125 mg/dL indicate increased risk for diabetes (prediabetes). Fasting plasma glucose results greater than or equal to 126 mg/dL meet the criteria for diagnosis of diabetes. In the absence of unequivocal hyperglycemia, results should be confirmed by repeat testing. In a patient with classic symptoms of hyperglycemia or hyperglycemic crisis, random plasma glucose results greater than or equal to 200 mg/dL meet the criteria for diagnosis of diabetes. Reference: Standards of Medical Care in Diabetes 2016, [place] [employer]. Diabetes Care. 2016.39(Suppl 1). LAB BUN 7-21 mg/dL BUN 20 LAB CRET 0.58-0.96 mg/dL Creatinine High 1.13 LAB NA 136-144 mmol/L Low Sodium 133 LAB K 3.7-5.1 mmol/L Potassium 3.8 LAB CL 97-105 mmol/L Chloride 97 LAB CO2 22-30 mmol/L Low CO2 21 LAB AGAP 9-18 mmol/L Anion Gap 15 LAB ALT 7-38 U/L Low ALT 6 LAB GFRAA eGFR- Amer. >60 LAB GFRNAA . eGFR-All Other Races 57 Result Comment: eGFR (Estimated GFR) Units of measure: mL/min/1.73 meters squared eGFR is derived from the reexpressed MDRD Study equation using the following parameters: serum creatinine, age, gender and race. The creatinine assay has been calibrated to be traceable to IDMS. An eGFR <60 mL/min/1.73m2 for >3 months is consistent with chronic kidney disease. Refer to KDOQI guidelines for clinical interpretation. In patients with unstable renal function, e.g. those with acute kidney injury, the eGFR may not accurately reflect actual GFR. Performed By: #### CBCDIF, CMP, MG1, PHOS #### [facility] [address] [place], [place] [address] MAGNESIUM Collected: 09/29/2017 Status: F Source: [place] 11:47 PM [facility] REPOSITORY TYPE CODE TESTS RESULT OUT OF REFERENCE UNITS RANGE LAB MG 1.7-2.3 mg/dL Magnesium 1.8 Performed By: #### CBCDIF, CMP, MG1, PHOS #### [facility] [address] [place], [place] [address] PHOSPHORUS Collected: 09/29/2017 Status: F Source: [place] 11:47 PM [facility] REPOSITORY TYPE CODE TESTS RESULT OUT OF REFERENCE UNITS RANGE LAB PHOS 2.7-4.8 mg/dL Phosphorus 4.0 Performed By: #### CBCDIF, CMP, MG1, PHOS #### [facility] [address] [place], [place] [address] HISTORY PHYSICAL Observed: 09/29/2017 Status: COMPLETED Source: [place] 11:23 PM [facility] REPOSITORY HNO ID: [id number] Author: Austen Choudhury Service: Critical Care Author Type: Physician Type: HANDP Filed: 09/29/2017 11:42 PM Note Text: DR. FRED STONE, SR. HOSPITAL STAFF PHYSICIAN NOTE OF PERSONAL INVOLVEMENT IN CARE I have reviewed the history and physical examination obtained and documented by the resident and I personally participated in the fernandes components. I have discussed the case and management of the patient's care. The following comments revise or confirm relevant fernandes components of the note. IMPRESSION: 27 yo woman with antiphospholipid syndrome (+ lupus anticoagulant, + [id number], and + anti-cardiolipin antibodies) on plasmapheresis since 2013, cyclophosphamide, warfarin and prednisone with recurrent diffuse alveolar hemorrhage (5 episodes) with rituximab intolerance (cardiotoxicity). Hx of HIT. Admitted with blood tinged sputum and worsening dyspnea and chest tightness. Hypoxemic respiratory failure. CT have chronically shown GGOs. Beside alveolar hemorrhage the differential includes pulmonary edema / atypical pneumonia / HP. Risk factors for her alveolar hemorrhage includes antiphospholipid sdme, thrombocytopenia (41) and chronic anticoagulation. No evidence of alveolar hemorrhage in the last 2-3 bronchs with BAL (done for hemoptysis). PLAN: Vascular medicine consultation regarding anticoagulation, recurrent VTE (s/p IVC filter) and suspicion of alveolar hemorrhage and prior HIT. Treatment of antiphospholipid syndrome. May need bronc with BAL however this will depend on oxygenation (risk/benefits) and also after developing a better plan in regards to her anticoagulation. Gentle negative fluid balance. Increase prednisone for now (1 mg/kg). Complex case. Patient/Family Updated: Pt was updated. This patient has a high probability of sudden, clinically significant deterioration, which requires the highest level of physician preparedness to intervene urgently. I managed/supervised life or organ supporting interventions that required frequent physician assessment. I devoted my full attention to the direct care of this patient for the amount of time indicated below. Time I spent with family or surrogate(s) is included only if the patient was incapable of providing the necessary information or participating in medical decision making. Time devoted to teaching and to any procedures I billed separately is not included. Critical Care Documentation: The patient has the following organ/system impairment(s): Respiratory failure (Acute on Chronic, with Hypoxemia) Time spent providing critical care services: 40 minutes. SIGNATURE: Austen Choudhury MD [facility] PAGER:[phone] DATE of SERVICE: September 29, 2017 ED NOTE Observed: 09/29/2017 Status: COMPLETED Source: [place] 10:10 PM [facility] REPOSITORY HNO ID: [id number] Author: Irasema Sauer) JEFF Zaragoza Service: Emergency Medicine Author Type: Registered Nurse Type: ED Notes Filed: 09/29/2017 10:16 PM Note Text: Report given to JEFF Armenta. HISTORY PHYSICAL Observed: 09/29/2017 Status: COMPLETED Source: [place] 10:03 PM [facility] REPOSITORY HNO ID: [id number] Author: Ernie Klein Service: Critical Care Author Type: Resident Type: HANDP Filed: 09/29/2017 11:59 PM Note Text: MICU - HISTORY AND PHYSICAL Admission Date: 09/29/2017 Day #: 1 in the MICU. SUBJECTIVE: Chief Complaint: Shortness of breath HPI: 27 years old woman with PMHx of: - Anti-phospholipid Syndrome diagnosed in 2013 (catastrophic APAS c/b PE/DVT requiring extensive percutaneous thrombectomy of her IVC + lower extremity veins with placement of bilateral iliac venous stents and an IVC endograft, found to be positive for lupus anticoagulant, [id number], and anti-cardiolipin antibodies for which she gets plasmapheresis q2 weeks and is on daily prednisone 5 mg daily). She was treated with Rituximab in the past but she did not respond to it and also developed cardiac toxicity. 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 Left ventricular systolic function is mildly decreased. EF = 50 ? 5% (visual est.) Indeterminate left ventricular diastolic dysfunction. - GERD Patient rcently admitted 08/25-09/06/17 for C diff and MRSE/ E fecalis CLABSI, during this time Cytoxan was stopped due to Leukopenia but was restarted on 09/11 at 150 mg QD. Patient has been doing well at home off daytime oxygen. PSO2 95% on RA most of the time. This afternoon patient developed a cute onset cough fits ~ 20 times associated with SOB and desaturation down to 72% on RA. She was coughing clear sputum initially streaked with blood but later it was mixed with blood. Per patient total amount of blood lost close to one table spoon. She then presented to the ED for further management. In the ED SPO2 89% on RA improved to 94% on NC 3L. BP 143/72, HR 115. Hb stable 8.7 at baseline, No leukocytosis. CXR in the ED Shallow inspiration. Diffuse bilateral airspace opacities may represent alveolar hemorrhage as seen on recent chest CT. ?No focal consolidation. ?No large pleural effusion or pneumothorax. Previous CT scan was done on 09/11/17: Diffuse bilateral confluent areas of groundglass opacity throughout both lungs in a centrilobular distribution pattern with mild scattered areas of air trapping. ?Findings are concerning for diffuse alveolar hemorrhage in the clinical setting of anti-phospholipid antibody syndrome, although, infection, edema, inhalation lung disease or hypersensitivity pneumonitis can have a similar appearance. At the time of encounter patient is no acute distress, denies SOB with O2, but she is SOB without it. She has been off O2 for the last 3 weeks, PAST MEDICAL HISTORY Diagnosis Date - (HFpEF) heart failure with preserved ejection fraction (HCC) 02/20/2016 HFpEF w last EF 50-55% On Torsemide, coreg, hydralazine and imdur at home No signs of acute exacerbation on admission Plan: -Continue home medications - Anasarca 11/29/2013 - Anemia 03/10/2015 Chronic microcytic anemia. 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 Thrombosis, and Diffuse Alveolar Hemorrhage. On Warfarin and PLEX (Twice Weekly)? Plan: -Warfarin 5mg qday-holding for planned EGD on 01/11 d/t supra therapeutic INR -Cont. PO Prednisone 10mg MWFS and 5mg TTS -Pantoprazole for GI PPx of Above -Apharesis was supposed to be yesterday, will contact plasmapheresis team on recommendations - Antiphospholipid syndrome (HCC) - Catastrophic Antiphospholipid antibody syndrome 11/09/2013 - Cholelithiasis 01/11/2017 Likely cause of recent pancreatitis. Plan: Per general surgery, no acute surgical intervention at this time. Will await results of EGD. If active gastritis, favor outpatient cholecystectomy. If no active gastritis on EGD, plan for cholecystectomy this admission. 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 Social History Main Topics Smoking status: Never Smoker Smokeless status: Never Used Alcohol use: No Drug use: No Sexual activity: Not Currently CURRENT MEDICATIONS: Current hospital medications: sulfamethoxazole-trimethoprim 800-160 mg 1 tablet (BACTRIM DS,SEPTRA DS) 1 tablet ORAL [START ON 09/30/2017] warfarin 2.5 mg tab(s) (COUMADIN) 2.5 mg ORAL DAILY - WARFARIN gabapentin 300 mg cap(s) (NEURONTIN) 300 mg ORAL q 8 H ondansetron 8 mg tab(s) (ZOFRAN) 8 mg ORAL q 12 H PRN cetirizine 10 mg tab(s) (ZyrTEC) 10 mg ORAL BID [START ON 09/30/2017] cyclophosphamide 150 mg cap(s) (CYTOXAN) 150 mg ORAL DAILY [START ON 09/30/2017] amLODIPine 10 mg tab(s) (NORVASC) 10 mg ORAL DAILY [START ON 09/30/2017] pantoprazole DR 40 mg tab(s) (PROTONIX) 40 mg ORAL DAILY (6 AM) furosemide 40 mg injection (LASIX) 40 mg INTRAVENOUS ONCE potassium chloride ER 40 mEq tab(s) (K-DUR, KLOR-CON) 40 mEq ORAL/FEEDING TUBE q 2 H PRN magnesium sulfate in water 4-6 g in sterile water 50 ml 4- 6 g INTRAVENOUS PRN sodium phosphate 45 mmol in NaCl 0.9% 250 mL 45 mmol INTRAVENOUS PRN insulin regular human injection (short acting) (NovoLIN R,HumuLIN R) SUBCUTANEOUS q 6 H insulin regular 250 units in NaCl 0.9% 250 mL iv infusion - ICU NOMOGRAM 0.5-30 Units/hr INTRAVENOUS CONTINUOUS insulin regular human iv bolus 2-10 Units 2-10 Units INTRAVENOUS PRN dextrose 50% in water 25-50 mL syringe 12.5-25 g INTRAVENOUS PRN dextrose 40 % 15 g 15 g ORAL PRN glucagon 1 mg injection (GLUCAGEN) 1 mg SUBCUTANEOUS PRN acetaminophen 650 mg tab(s) (TYLENOL) 650 mg ORAL/FEEDING TUBE q 6 H PRN acetaminophen 650 mg suppository (TYLENOL) 650 mg RECTAL q 6 H PRN oxyCODONE IR 5-10 mg tab(s) (ROXICODONE) 5-10 mg ORAL/FEEDING TUBE q 4 H PRN HYDROmorphone 0.5-1 mg injection (DILAUDID) 0.5-1 mg INTRAVENOUS q 4 H PRN warfarin order for discharge OTHER PRN [START ON 09/30/2017] predniSONE (DELTASONE) tab(s) 80 mg 80 mg ORAL DAILY OUTPATIENT MEDICATIONS: Current Facility-Administered Medications: sulfamethoxazole-trimethoprim 800-160 mg 1 tablet (BACTRIM DS,SEPTRA DS) 1 tablet ORAL -- [START ON 09/30/2017] warfarin 2.5 mg tab(s) (COUMADIN) 2.5 mg ORAL DAILY - WARFARIN gabapentin 300 mg cap(s) (NEURONTIN) 300 mg ORAL q 8 H ondansetron 8 mg tab(s) (ZOFRAN) 8 mg ORAL q 12 H PRN cetirizine 10 mg tab(s) (ZyrTEC) 10 mg ORAL BID [START ON 09/30/2017] cyclophosphamide 150 mg cap(s) (CYTOXAN) 150 mg ORAL DAILY [START ON 09/30/2017] amLODIPine 10 mg tab(s) (NORVASC) 10 mg ORAL DAILY [START ON 09/30/2017] pantoprazole DR 40 mg tab(s) (PROTONIX) 40 mg ORAL DAILY (6 AM) furosemide 40 mg injection (LASIX) 40 mg INTRAVENOUS ONCE potassium chloride ER 40 mEq tab(s) (K-DUR, KLOR-CON) 40 mEq ORAL/FEEDING TUBE q 2 H PRN magnesium sulfate in water 4-6 g in sterile water 50 ml 4- 6 g INTRAVENOUS PRN sodium phosphate 45 mmol in NaCl 0.9% 250 mL 45 mmol INTRAVENOUS PRN insulin regular human injection (short acting) (NovoLIN R,HumuLIN R) SUBCUTANEOUS q 6 H insulin regular 250 units in NaCl 0.9% 250 mL iv infusion - ICU NOMOGRAM 0.5-30 Units/hr INTRAVENOUS CONTINUOUS insulin regular human iv bolus 2-10 Units 2-10 Units INTRAVENOUS PRN dextrose 50% in water 25-50 mL syringe 12.5-25 g INTRAVENOUS PRN dextrose 40 % 15 g 15 g ORAL PRN glucagon 1 mg injection (GLUCAGEN) 1 mg SUBCUTANEOUS PRN acetaminophen 650 mg tab(s) (TYLENOL) 650 mg ORAL/FEEDING TUBE q 6 H PRN And acetaminophen 650 mg suppository (TYLENOL) 650 mg RECTAL q 6 H PRN And oxyCODONE IR 5-10 mg tab(s) (ROXICODONE) 5-10 mg ORAL/FEEDING TUBE q 4 H PRN And HYDROmorphone 0.5-1 mg injection (DILAUDID) 0.5-1 mg INTRAVENOUS q 4 H PRN warfarin order for discharge OTHER PRN [START ON 09/30/2017] predniSONE (DELTASONE) tab(s) 80 mg 80 mg ORAL DAILY COMPLETE REVIEW OF SYSTEMS: GENERAL:No weight loss, malaise or fevers HEENT:Negative for frequent or significant headaches, No changes in hearing or vision, no nose bleeds or other nasal problems NECK:Negative for lumps, goiter, pain and significant neck swelling RESPIRATORY: SOB, Hemoptysis CARDIOVASCULAR: Negative for chest pain, leg swelling or palpitations. GASTROINTESTINAL: Negative for abdominal discomfort, blood in stools or black stools or change in bowel habits GENITOURINARY: No history of dysuria, frequency or incontinence MUSCULOSKELETAL: no joint pain, + B/L LE edema NEUROLOGIC:Negative for focal numbness or weakness, headaches and dizziness or syncope. SKIN:Negative for lesions, rash, and itching. ENDOCRINE: Negative for cold or heat intolerance, polyuria, polydipsia and goiter. PSYCHIATRIC: Negative for sleep disturbance, mood disorder or psychosocial stressors OBJECTIVE: VITAL SIGNS (last 24hrs min/max): 09/29/17 2117 09/29/17 2154 09/29/17 2213 09/29/17 2300 BP: 143/81 144/70 150/72 Pulse: (!) 117 (!) 110 (!) 111 113 Resp: Temp: 37.2 ?C (98.9 ?F) 37.1 ?C (98.8 ?F) TempSrc: Oral Oral SpO2: (!) 92% (!) 93% 96% Weight: 97.2 kg (214 lb 4.6 oz) Height: NET FLUID BALANCE No intake or output data in the 24 hours ending 09/29/17 1294 INFUSIONS: No Other Lines/Drains: Peripheral IVs HEENT: Oral Mucosa: Moist mucous membranes Feeding Tube: No Eyes: PERRLA Neck: Unremarkable; No adenopathy or JVD Cardiovascular: Regular rhythm Relevant Hemodynamic Data: Blood pressure 150/72, pulse 113, temperature 37.1 ?C (98.8 ?F), temperature source Oral, resp. rate 20, height 160 cm (5' 3), weight 97.2 kg (214 lb 4.6 oz), SpO2 96 %. Respiratory: Clear to auscultation Supplemental Oxygen: Yes. 3L NC No Data Recorded Abdomen: Soft, Nontender and Positive bowel sounds Extremities: Edema- Yes Peripheral Pulses- Present all extremities Skin: Abnormalities- No Breakdown- No Neurologic: Awake, oriented, Alert, Follows commands and Moving all extremities NUTRITION: Regular diet Enteral Feeds: No DATA: Diagnostic tests reviewed for today's visit: Most recent labs and imaging results. Most recent labs Most recent imaging Most recent EKG LABS: CBC, Coags, BMP, Mg, Phos Recent Labs 09/29/17 1804 WBC 6.48 HB 8.7* HCT 28.2* PLT 41* INR 2.1* APTT 33.8* NA 135* K 3.5* CHLOR 98 CO2 22 BUN 21 CREAT 1.13* GLUC 74 CA 8.8 MG 1.7 Liver Function, Amylase, AND Lipase Recent Labs 09/29/17 1804 TPROT 6.0* ALB 3.7* ALT <5* AST 12* ALKPHOS 59 TBILI 1.0 Cardiac Enzymes ABGs CULTURES: N/A ASSESSMENT AND PLAN: Patient Summary: 27 years old woman with PMHx of Anti-phospholipid Syndrome diagnosed in 2013 (catastrophic APAS c/b PE/DVT requiring extensive percutaneous thrombectomy of her IVC + lower extremity veins with placement of bilateral iliac venous stents and an IVC endograft, found to be positive for lupus anticoagulant, [id number], and anti-cardiolipin antibodies for which she gets plasmapheresis q2 weeks and is on daily prednisone 5 mg daily). Previous hx of Diffuse Alveolar Hemorrhage - on cyclophosphamide. 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 Left ventricular systolic function is mildly decreased. EF = 50 ? 5% (visual est.) Indeterminate left ventricular diastolic dysfunction.GERD. Presented to the ED with acute onset of SOB, hypoxemia and hemoptysis Major Interval Events: 09/29: Admitted to the MICU Active Hospital Problems Diagnosis - Hemoptysis Patient has been doing well at home off daytime oxygen. PSO2 95% on RA most of the time. This afternoon patient developed a cute onset cough fits ~ 20 times associated with SOB and desaturation down to 72% on RA. She was coughing clear sputum initially streaked with blood but later it was mixed with blood. Per patient total amount of blood lost close to one table spoon. CXR in the ED Shallow inspiration. Diffuse bilateral airspace opacities may represent alveolar hemorrhage as seen on recent chest CT. ?No focal consolidation. ?No large pleural effusion or pneumothorax. Previous CT scan was done on 09/11/17: Diffuse bilateral confluent areas of groundglass opacity throughout both lungs in a centrilobular distribution pattern with mild scattered areas of air trapping. ?Findings are concerning for diffuse alveolar hemorrhage in the clinical setting of anti-phospholipid antibody syndrome, although, infection, edema, inhalation lung disease or hypersensitivity pneumonitis can have a similar appearance. - Increase prednisone to 1 mg/kg - vascular medicine consult for AC - Monitor CBC - Monitor INR - APS (antiphospholipid syndrome) (HCC) - This was diagnosed in when she presented catastrophically with PE/DVT needing extensive percutaneous thrombectomy of her IVC and lower extremity veins followed by placement of B/L iliac venous stents and an endograft into her IVC. - She has a history of HIT - Initially give IV Rituximab with no benefits and complications of associated cardiotoxicity - Due to her being triple positive with + lupus anticoagulant, + [id number], and + anti-cardiolipin antibodies, she is on plasmapheresis every other week since and is also on Prednisone 5 mg daily. - Also complicated by diffuse alveolar hemorrhage, as she has had 5 acute episodes of respiratory decline since , three of which were associated with her needing ET intubation and mechanical ventilation, last being in 07/26 - She was started on Cytoxan titrated to 200 mg daily on 06/2017 but was stopped recently when she was admitted for CLABSI. Resumed on 09/12/15 as 150 mg QD Plan - She will need Staff physician to sing order to continue home dose Cytoxan - Plan to continue plasmapheresis every other week, Next session Monday10/02/17 - Continue Warfarin 2.5 - Continue prednisone - Monitor respiratory function - O2 to sat > 95% - BPH - Monitor Hb - Monitor INR - Avoid Heparin products - CKD (chronic kidney disease) stage 3, GFR 30-59 ml/min Renal vein thrombosis with additional insult in '14 from contrast induced nephropathy. Per records her baseline is 1.1. Plan: - Renally dose medication - Gentle hydration overnight - Avoid nephrotoxins. 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 Following with Cardiology No CHF physiology Last ECHO 08/2017: The left ventricle is dilated. Left ventricular systolic function is mildly decreased. EF = 50 ? 5% (visual est.) Indeterminate left - HTN (hypertension) On Amlodipine 5 mg QD - Peripheral neuropathy Continue Neurontin Plan will be discussed with MICU Staff. PATIENT CHECKLIST ? Are restraints necessary: No ? Deep vein thrombosis prophylaxis administered? No. Not indicated. ? Stress ulcer prophylaxis? No, not indicated. ? Nasogastric tube? No ? Zuniga catheter necessary? No ? Is central line essential? Yes ? Plan discussed with assigned RN? Yes ? Family updated within last 24 hours? No Ernie Klein MD Internal Medicine- PGY3 Pager:[phone] September 29, 2017 10:04 PM ED NOTE Observed: 09/29/2017 Status: COMPLETED Source: [place] 9:30 PM [facility] REPOSITORY HNO ID: [id number] Author: Irasema SanchezRn) JEFF Zaragoza Service: Emergency Medicine Author Type: Registered Nurse Type: ED Notes Filed: 09/29/2017 10:17 PM Note Text: Pt sitting in bed with a snack. No complaints at this time. Denies sob and chest pain. NAD noted. Will continue to monitor. PROGRESS Observed: 09/29/2017 Status: COMPLETED Source: [place] 6:17 PM [facility] REPOSITORY HNO ID: [id number] Author: Sue SanchezRtDevonte Bah Service: Radiology Author Type: Title Clerk Automobile Type: Progress Notes Filed: 09/29/2017 6:17 PM Note Text: Radiology Service Progress Note PATIENT NAME: Paloma Cannon DATE OF SERVICE: September 29, 2017 TIME: 6:17 PM PATIENT IDENTITY VERIFICATION COMPLETED USING TWO (2) METHODS: Patient confirmed name verbally and ID band matches.. PATIENT GENDER DATA: Female. status: : No status: N/A PATIENT RELEVANT IMPLANT DATA REVIEWED: Not Applicable RADIOLOGY DEPARTMENT: General X-ray: Exam(s) Completed: Chest X-Ray PERIPHERAL IV DATA: Not applicable SIGNED BY: RT Pawan September 29, 2017 6:17 PM ED PROV NOTE Observed: 09/29/2017 Status: COMPLETED Source: [place] 6:12 PM [facility] REPOSITORY HNO ID: [id number] Author: Fany Sihne MD Service: Emergency Medicine Author Type: Physician Type: ED Provider Notes Filed: 09/29/2017 11:34 PM Note Text: ED Provider Note Patient Name: Paloma Cannon SERVICE DATE: 09/29/17 History Patient presents with: Shortness of Breath: weras 2L O2 at night but has recently had to start wearing up to 5L during the day Nausea AND Vomiting HPI 27 y/o F w/pmhx of antiphospholipid syndrome?(on plasmapheresis- PLEX every other week, prednisone?5/10mg), c/b hypercoagulability PE AND?DVT 09/2013 (s/p b/l iliac v. stents and Endoglix AFX endograft at the inferior vena caval bifurcation) on Warfarin (h/o HIT), extensive thrombectomy at outside hospital for right lower extremity and IVC thrombus, diffuse alveolar hemorrhage?(x 5 episodes some episodes recently with negative bronchoscopy), HFpEF2/2 intolerance to Rituximab and CKD. She presented to the ED for hemoptysis and SOB. She had an episode this afternoon where she spontaneously began coughing repeatedly- cough was clear sputum with blood tinged. Coughed ~20 times, then began complaining of SOB and chest pressure like a band was around her chest. She then checked saturations which was ~70% on RA. Placed herself on 4L of O2. Also became nauseas and vomited. She now says that she is feeling SOB and fatigued but otherwise doing much better. No longer coughing. Denies fevers or chills. Denies active CP. PAST MEDICAL HISTORY Diagnosis Date - (HFpEF) heart failure with preserved ejection fraction (HCC) 02/20/2016 HFpEF w last EF 50-55% On Torsemide, coreg, hydralazine and imdur at home No signs of acute exacerbation on admission Plan: -Continue home medications - Anasarca 11/29/2013 - Anemia 03/10/2015 Chronic microcytic anemia. 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 Thrombosis, and Diffuse Alveolar Hemorrhage. On Warfarin and PLEX (Twice Weekly)? Plan: -Warfarin 5mg qday-holding for planned EGD on 01/11 d/t supra therapeutic INR -Cont. PO Prednisone 10mg MWFS and 5mg TTS -Pantoprazole for GI PPx of Above -Apharesis was supposed to be yesterday, will contact plasmapheresis team on recommendations - Antiphospholipid syndrome (HCC) - Catastrophic Antiphospholipid antibody syndrome 11/09/2013 - Cholelithiasis 01/11/2017 Likely cause of recent pancreatitis. Plan: Per general surgery, no acute surgical intervention at this time. Will await results of EGD. If active gastritis, favor outpatient cholecystectomy. If no active gastritis on EGD, plan for cholecystectomy this admission. 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 - PAST SURGICAL HISTORY OF Adenoidectomy - PICC LINE INSERT/CONSULT 11/29/2013 - PICC LINE INSERT/CONSULT 03/10/2015 - PICC LINE INSERT/CONSULT 02/20/2016 FAMILY HISTORY Problem Relation Age of Onset - Breast Cancer Mother spine BRCA neg - Ovarian cyst [OTHER] Mother - ovarian cyst [OTHER] Sister - Thyroid No Family History Social History Social History Main Topics - Smoking status: Never Smoker - Smokeless tobacco: Never Used - Alcohol use No - Drug use: No - Sexual activity: Not Currently ALLERGIES Allergen Reactions - Rhubarb Rash, Hives - Heparin Other: See Comments Per patient history of HIT - was on angiomax however then took l fondaparinux for bridging to coumadin. - Iv Contrast [Iodine] Other: See Comments shuts kidneys down per patient - Rituximab Other: See Comments Elevated cardiac enzymes Review of Systems Constitutional: Negative for chills, diaphoresis, fatigue and fever. HENT: Negative for sore throat. Eyes: Negative for visual disturbance. Respiratory: Positive for cough, choking, chest tightness and shortness of breath. Cardiovascular: Negative for chest pain, palpitations and leg swelling. Gastrointestinal: Negative for abdominal distention, constipation and diarrhea. Endocrine: Negative for polyuria. Genitourinary: Negative for dysuria. Musculoskeletal: Negative for back pain. Neurological: Positive for weakness. Negative for dizziness, light-headedness and headaches. Psychiatric/Behavioral: Negative for behavioral problems. Physical Exam BP 160/77 Pulse 118 Temp (Src) 98.2 (Oral) Resp 22 Ht 5' 3 (1.60m) Wt 214 lb (97.1kg) SpO2 94% BMI 37.92 kg/(m2). Physical Exam Constitutional: She is oriented to person, place, and time. She appears well-developed and well-nourished. HENT: Head: Normocephalic and atraumatic. Eyes: Pupils are equal, round, and reactive to light. Neck: Normal range of motion. Cardiovascular: Normal rate, regular rhythm and normal heart sounds. Pulmonary/Chest: Effort normal and breath sounds normal. No respiratory distress. She has no wheezes. She has no rales. She exhibits no tenderness. Abdominal: Soft. Bowel sounds are normal. She exhibits no distension. Musculoskeletal: Normal range of motion. She exhibits no edema. Neurological: She is alert and oriented to person, place, and time. Skin: Skin is warm. Psychiatric: She has a normal mood and affect. Diagnostic Testing ED Labs Ordered and Reviewed - No data to display Procedures Medical Decision Making / ED Course ED Course Encounter Diagnosis ICD-10-CM 1. Hypoxia R09.02 2. Hemoptysis R04.2 Plan 27 y/o F w/complex medical hx including APS c/b DAH who presents to the ED with hemoptysis and vomiting followed by hypoxia. sat'ing ~94% on 3L currently. BP stable, slightly tachy to 110s, afebrile. EKG unremarkable. CXR showing diffuse haziness. At this point, concerning for possible aspiration pneumonia/pneumonitis. Not coughing javon blood so less concerned about alveolar hemorrhage. Will admit to medicine and follow up basic blood work. - Follow up basic lab work - Consider antibiotics for aspiration PNA Addendum: Spoke to MICU on behalf of medicine team. MICU has accepted patient given the concern for hemoptysis and low platelet count in case of need for plasmapheresis overnight. - Admit to MICU The Patient was ADMITTED TO: ICU. Condition at time of disposition: stable SIGNATURE: MD Harvinder Ngo ([facility]) [place] Resident 09/29/17 1903 Harvinder Kang ([facility]) [place] Resident 09/29/17 1700 Attending Note I evaluated the patient and personally participated in the fernandes components. I agree with the resident's findings and plan as documented and have discussed the case and management of the patient's care with the resident. Critical Care I spent a total of 34 minutes of critical care time in the evaluation and management of this patient. This was necessary to treat or prevent deterioration of the following condition(s): Respiratory impairment, which the patient had and/or has a high probability of suddenly developing. The patient received Oxygen during the time that critical care was provided.I discussed the plan of care with the Resident and agree with the findings documented. Critical care time excludes separately billed procedures. Fany Shine MD Signature: Fany Shine MD Date: 09/29/2017 Time: 11:33 PM Fany Shine MD 09/29/17 2334 ED NOTE Observed: 09/29/2017 Status: COMPLETED Source: [place] 6:07 PM [facility] REPOSITORY HNO ID: [id number] Author: Irasema (Rn) JEFF Zaragoza Service: Emergency Medicine Author Type: Registered Nurse Type: ED Notes Filed: 09/29/2017 6:07 PM Note Text: Labs were drawn and sent. CBC AND DIFFERENTIAL Collected: 09/29/2017 Status: F Source: [place] 6:04 PM [facility] REPOSITORY TYPE CODE TESTS RESULT OUT OF REFERENCE UNITS RANGE LAB WBC 3.70-11.00 k/uL WBC 6.48 LAB RBC 3.90-5.20 m/uL Low RBC 3.15 LAB HGB 11.5-15.5 g/dL Low Hemoglobin 8.7 LAB HCT 36.0-46.0 % Low Hematocrit 28.2 LAB MCV 80.0-100.0 fL MCV 89.5 LAB MCH 26.0-34.0 pG MCH 27.6 LAB MCHC 30.5-36.0 g/dL MCHC 30.9 LAB RDWCV 11.5-15.0 % RDW-CV High 21.4 LAB PLTCT 150-400 k/uL Low Platelet Count 41 Result Comment: Result checked and verified No clot detected. LAB MPV 9.0-12.7 fL MPV <<DO NOT REPORT>> LAB ANEUT % Neut% 87.5 LAB AANEUT 1.45-7.50 k/uL Abs 5.67 Neut LAB ALYMP % 2.2 Lymph% LAB AALYMP 1.00-4.00 k/uL Abs 0.14 Low Lymph LAB AMONO % [place]% 6.9 LAB AAMONO <0.87 k/uL Abs 0.45 [place] LAB AEOS % 2.8 Eosin% LAB AAEOS <0.46 k/uL Abs 0.18 Eosin LAB ABASO % Baso% 0.6 LAB AABASO <0.11 k/uL Abs 0.04 Baso LAB AUNRBC 0 /100 WBC NRBCs 0.0 LAB ABNRBC <0.01 k/uL <0.01 Absolute nRBC LAB DTYP DTYPE Auto Diff Performed By: #### CBCDIF, CMP, MG1 #### [facility] [address] [place], [place] [address] COMP METABOLIC PANEL Collected: 09/29/2017 Status: F Source: [place] 6:04 PM [facility] REPOSITORY TYPE CODE TESTS RESULT OUT OF REFERENCE UNITS RANGE LAB TP 6.3-8.0 g/dL Low Protein, Total 6.0 LAB ALB 3.9-4.9 g/dL Low Albumin 3.7 LAB CA 8.5-10.2 mg/dL Calcium, Total 8.8 LAB TBIL 0.2-1.3 mg/dL Bilirubin, Total 1.0 LAB ALKP 32-117 U/L Alkaline Phosphatase 59 LAB AST 13-35 U/L Low AST 12 LAB GLU 74-99 mg/dL Glucose 74 Result Comment: The [place] [employer] (ADA) provides guidance for cutoff values for fasting glucose and random glucose. The ADA defines fasting as no caloric intake for at least 8 hours. Fas ting plasma glucose results between 100 to 125 mg/dL indicate increased risk for diabetes (prediabetes). Fasting plasma glucose results greater than or equal to 126 mg/dL meet the criteria for diagnosis of diabetes. In the absence of unequivocal hyperglycemia, results should be confirmed by repeat testing. In a patient with classic symptoms of hyperglycemia or hyperglycemic crisis, random plasma glucose results greater than or equal to 200 mg/dL meet the criteria for diagnosis of diabetes. Reference: Standards of Medical Care in Diabetes 2016, [place] [employer]. Diabetes Care. 2016.39(Suppl 1). LAB BUN 7-21 mg/dL BUN 21 LAB CRET 0.58-0.96 mg/dL Creatinine High 1.13 LAB NA 136-144 mmol/L Low Sodium 135 LAB K 3.7-5.1 mmol/L Low Potassium 3.5 LAB CL 97-105 mmol/L Chloride 98 LAB CO2 22-30 mmol/L CO2 22 LAB AGAP 9-18 mmol/L Anion Gap 15 LAB ALT 7-38 U/L Low ALT <5 LAB GFRAA eGFR- Amer. >60 LAB GFRNAA . eGFR-All Other Races 57 Result Comment: eGFR (Estimated GFR) Units of measure: mL/min/1.73 meters squared eGFR is derived from the reexpressed MDRD Study equation using the following parameters: serum creatinine, age, gender and race. The creatinine assay has been calibrated to be traceable to IDMS. An eGFR <60 mL/min/1.73m2 for >3 months is consistent with chronic kidney disease. Refer to KDOQI guidelines for clinical interpretation. In patients with unstable renal function, e.g. those with acute kidney injury, the eGFR may not accurately reflect actual GFR. Performed By: #### CBCDIF, CMP, MG1 #### [facility] [address] [place], [place] [address] MAGNESIUM Collected: 09/29/2017 Status: F Source: [place] 6:04 [facility] REPOSITORY TYPE CODE TESTS RESULT OUT OF REFERENCE UNITS RANGE LAB MG 1.7-2.3 mg/dL Magnesium 1.7 Performed By: #### CBCDIF, CMP, MG1 #### [facility] [address] [place], [place] [address] PROTIME Collected: 09/29/2017 Status: F Source: [place] 6:04 [facility] REPOSITORY TYPE CODE TESTS RESULT OUT OF RANGE REFERENCE UNITS LAB PSEC 9.7-13.0 sec High PT Sec 20.3 LAB INR 0.9-1.3 High PT INR 2.1 Result Comment: Vitamin K Antagonist (VKA) Therapeutic Range: INR 2 to 3 (Target INR of 2.5) Note: For patients treated with VKA drugs, such as warfarin, the [place] [employer] 2012 Guideline recommends a therapeutic INR range of 2 to 3 (target INR of 2.5). This recommendation includes high-risk patients with antiphospholipid syndrome with previous arterial or venous thromboembolism, current-generation mechanical or bioprosthetic aortic heart valve replacement. Note: Patients with mechanical aortic valve replacement and additional risk factors for thromboembolic events (atrial fibrillation, previous thromboembolism, LV dysfunction, hypercoagulable conditions) or an older generation mechanical AVR (i.e., ball in-Cage) or any mechanical MVR should have a INR therapeutic range of 2.5 to 3.5 (target INR of 3). Michael GH, et al. Chest 2012, 141:7S-47S Diogenes RA et al. JACC 2017, 70: 252-289 Performed By: #### PT, PTT #### [facility] [address] [place], [place] [address] APTT Collected: 09/29/2017 Status: F Source: [place] 6:04 PM [facility] REPOSITORY TYPE CODE TESTS RESULT OUT OF RANGE REFERENCE UNITS LAB APTT 23.0-32.4 sec High APTT 33.8 Result Comment: Unfractionated Heparin Therapeutic Ranges: Standard Heparin Nomogram: 53 to 78 seconds (anti-Xa level of 0.3 to 0.7 U/ml) Low Dose/ACS Nomogram: 49 to 67 seconds (anti-Xa level of 0.2 to 0.5 U/ml) Stroke Treatment Nomogram: 49 to 67 seconds (anti-Xa level of 0.2 to 0.5 U/ml) Note: The APTT therapeutic range has been determined for the current lot of laboratory APTT reagent in use throughout the [facility]. Performed By: #### PT, PTT #### [facility] [place], [place] [address] TYPE AND SCREEN Collected: 09/29/2017 Status: F Source: [place] 6:04 [facility] REPOSITORY TYPE CODE TESTS RESULT OUT OF REFERENCE UNITS RANGE LAB %ABR B ABO/RH(D) POSITIVE LAB % Antibody POS Screen Performed By: #### TSCR #### [facility] [address] [place], [place] [id number] XR CHEST 1V FRONTAL Observed: 09/29/2017 Status: F Source: [facility] 5:50 PM [facility] REPOSITORY * * *Final Report* * * DATE OF EXAM: Sep 29 2017 5:50PM EGX [id number] - XR CHEST 1V FRONTAL PORT / PROCEDURE REASON: SOB (shortness of breath) * * * * Physician Interpretation * * * * EXAMINATION: CHEST RADIOGRAPH (PORTABLE SINGLE VIEW AP) Exam Date/Time: 09/29/2017 5:50 PM Indication: SOB (shortness of breath) MQ: XCP_4 Comparison: Chest CT 09/11/2017 CXR 08/29/2017 RESULT: See impression. IMPRESSION: Lines, tubes, and devices: Left spondylolysis catheter and indwelling central venous catheter are stable. Lungs and pleura: Shallow inspiration. Diffuse bilateral airspace opacities may represent alveolar hemorrhage as seen on recent chest CT. No focal consolidation. No large pleural effusion or pneumothorax. Cardiomediastinal silhouette: Enlarged cardiomediastinal silhouette. Hilar vasculature structures are grossly unremarkable. Other: Osseous structures are grossly unremarkable. Practice Support Specialist: MURTAZA Transcribe Date/Time: Sep 29 2017 6:23P Dictated by : ASHLIE ROSAS MD This examination was interpreted and the report reviewed and electronically signed by: NAVI LOWERY MD on Sep 29 2017 6:31PM EST [id number] ED NOTE Observed: 09/29/2017 Status: COMPLETED Source: [place] 5:40 PM [facility] REPOSITORY HNO ID: [id number] Author: Irasema SanchezRn) JEFF Zaragoza Service: Emergency Medicine Author Type: Registered Nurse Type: ED Notes Filed: 09/29/2017 8:05 PM Note Text: Assumed care of pt. Agree with initial triage note. Pt states she was coughing up blood this AM and states she became SOB with chest pain. Pt states her pulse ox at home was 70% RA. Pt states she put on 4 liters of oxygen but ran out in the car. Wears 2 liters NC at night. RT at bedside. Pt on 3 liters NC, stating 94%. Pt states hx of antiphospholipid disorder, takes daily chemo pill. Pt placed on heart monitor, ST, HR 118. States chronic B/L groin stinging pain. Safety checks completed. Will continue to monitor. ED NOTE Observed: 09/29/2017 Status: COMPLETED Source: [place] 5:38 PM [facility] REPOSITORY HNO ID: [id number] Author: Christin Lea Service: Emergency Medicine Author Type: Registered Resp Therapist Type: ED Notes Filed: 09/29/2017 5:43 PM Note Text: Pt assessed for shortness of breath. Pt stated she does not wear oxygen during the day and wears 2 L NC at night. Today she started to feel much more short of breath and realized her oxygen was low. Pt currently is denying any SOB, breath sounds are clear, and is 95% on 3 L NC. Will continue to monitor. ED NOTE Observed: 09/29/2017 Status: COMPLETED Source: [place] 5:36 PM [facility] REPOSITORY HNO ID: [id number] Author: Teresa SanchezCt) [place], [place] Service: Emergency Medicine Author Type: Clinical Title Clerk Automobile Type: ED Notes Filed: 09/29/2017 5:37 PM Note Text: EKG OBTAINED IN INTAKE UPON ARRIVAL. ED NOTE Observed: 09/29/2017 Status: COMPLETED Source: [place] 5:27 PM [facility] REPOSITORY HNO ID: [id number] Author: Teresa SanchezCt) [place] Service: Emergency Medicine Author Type: Clinical Title Clerk Automobile Type: ED Notes Filed: 09/29/2017 5:27 PM Note Text: EKG OBTAINED IN INTAKE UPON ARRIVAL. ED TRIAGE NOTE Observed: 09/29/2017 Status: COMPLETED Source: [place] 5:24 PM [facility] REPOSITORY HNO ID: [id number] Author: CY Byrnes (Pa) Service: Emergency Medicine Author Type: Physician Satellite Tv Technician Installer Type: ED Triage Notes Filed: 09/29/2017 5:26 PM Note Text: ED INTAKE NOTE Patient Name: Paloma Cannon Service Date: 09/29/17 BRIEF HPI: Patient presents with increasing SOB. States she usually wears 2 liters O2 NS at home only at night but this afternoon she had to wear 4-5 liters just to walk around the house. Endorses cough with blood tinged sputum for 1 week. Also endorses nausea and a handful of episodes of vomiting today that was nonbloody. BRIEF EXAM: Awake and Alert RRR CTAB Patient visibly SOB and placed on O2 at triage INTAKE WORKUP: Imaging: XR: Chest SIGNATURE: Lisseth Walker PA-C ED NOTE Observed: 09/29/2017 Status: COMPLETED Source: [place] 5:20 PM [facility] REPOSITORY HNO ID: [id number] Author: Angella SanchezRn) JEFF Faria Service: Emergency Medicine Author Type: Registered Nurse Type: ED Notes Filed: 09/29/2017 5:30 PM Note Text: Pt here with c/o increasing SOB, chest tightness, and vomiting. Pt states hx of antiphospholipid disorder, takes daily chemo pill. Pt with extensive medical hx, states wears 2L O2 at night but has recently started wearing 5L O2 during day. Pt speaking in full sentences, and does not appear to be in acute distress. PROTHROMBIN TIME W/INR Collected: 09/29/2017 Status: F Source: [place] 8:00 AM [facility] REPOSITORY Order Comment: MEDOUT/PORT DRAW TYPE CODE TESTS RESULT OUT OF RANGE REFERENCE UNITS LAB L300.4150 11.7-14.9 SECONDS High PROTIME 23.1 LAB L300.4200 Normal INR 2.0 Performed By: #### L300.3900 #### [facility] [address] [place], [address] PROGRESS Observed: 09/27/2017 Status: COMPLETED Source: [place] 4:08 PM [facility] REPOSITORY HNO ID: [id number] Author: Dominique Wright Service: (none) Author Type: Physician Type: Progress Notes Filed: 09/27/2017 4:38 PM Note Text: Ms. Cannon is a 27F with a history of APL, DAH, PE, DVTs. Gets apheresis every other week. Seen inpatient in August for line infection of both her partida and her jesus alberto catheter. Lines removed and replaced several days later. INTERVAL EVENTS: Completed her daptomycin therapy for enterococcus and MRSE line infection, blood stream infection. Completed C diff therapy with flagyl a week later. No diarrhea. Feeling well overall. Had transient fever 2 days ago. New kittens at home, nails now clipped. Had some scratches. CURRENT MEDICATIONS: Current Outpatient Prescriptions: ondansetron (ZOFRAN, HYDROCHLORIDE,) 8 mg tablet Take 1 tablet by mouth every 12 hours as needed for Nausea/Vomiting. gabapentin (NEURONTIN) 300 mg capsule Take 600mg in the morningTake 300 mg in the afternoonTake 300mg in the evening COMPOUNDED PRESCRIPTION O2 Condenser- whichever is covered by patient's insurance Acute on chronic respiratory failure with hypoxia (HCC) ?- Primary J96.21Pulmonary HTN I27.20SIRS (systemic inflammatory response syndrome) (HCC) R65.10 cyclophosphamide (CYTOXAN) 50 mg capsule Take 3 capsules by mouth once daily. predniSONE (DELTASONE) 5 mg tablet Take 1 tablet by mouth once daily. warfarin (COUMADIN) 2.5 mg tablet take by mouth as directed in the evening to keep INR between 2.0-3.0 amLODIPine (NORVASC) 5 mg tablet Take 2 tablets by mouth once daily. HOLD FOR SBP <120 sulfamethoxazole-trimethoprim (BACTRIM DS) 800-160 mg per tablet Take 1 tablet by mouth every Monday,Monday,Monday. fluticasone (FLONASE) 50 mcg/actuation nasal spray Use 1 [place] in each nostril once daily. pantoprazole DR (PROTONIX) 40 mg tablet Take 1 tablet by mouth DAILY (6 AM). cetirizine 10 mg tablet Take 1 tablet by mouth once daily. (Patient taking differently: Take 10 mg by mouth twice daily. being taper up on the dosage of medication per order. ) senna 8.6 mg tab Take 1 tablet by mouth twice daily as needed. No current facility-administered medications for this visit. ? Examination: BP 112/57 Pulse 94 Temp 36.4 ?C (97.6 ?F) (Oral) Resp 18 Ht 160 cm (5' 2.99) Wt 98.3 kg (216 lb 11.4 oz) SpO2 94% BMI 38.4 kg/m2 Alert, oriented, appears well HEENT left small conjunctival hemorrhage, no thrush NECK supple, no LAD CHEST clear, right samantha now removed, dressing in place, left pheresis catheter removed, site benign HEART regular, no MRG ABDO soft, nontender, mild distension EXTREM left forearm with nodularity, appears an early bruise from minor trauma SKIN single cat scratch on right wrist ?? Laboratory data: 09/18: WBC 5.6, HCT 28, PLTs 78, Cr 1.1 ?? Microbiology data: 09/01: blood x 2 NGTD 08/31: cath tip: <100 CFU E faecalis, <100 CFU Staph epi 08/30: blood Jesus Alberto cath x 2 GPC clusters and E faecalis 08/28: blood x 2 NGTD 08/26: blood catheter MRSE, blood peripheral NGTD 08/25 blood x 2 E faecalis and now MRSE 2 of 2 sets from and periphery 08/25: stool C diff ?? Imaging data: CXR reviewed, no infiltrates ?? ASSESSMENT:? 1. Antiphospholipid syndrome?(on plasmapheresis- PLEX every other week, prednisone?5/10mg) 2. 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 stents and Endoglix AFX endograft at the inferior vena caval bifurcation) on warfarin,?extensive thrombectomy at outside hospital for right lower extremity and IVC thrombus. 3. DAH x 5 4. HFpEF due to Rituximab. 5.?MRSE BSI attributed to tunneled catheter treated with 6 weeks of iv daptomycin in 02/02. ?? Admitted with fever and diarrhea. Found to have recurrence of C diff colitis and E faecalis+ MRSE?BSI. Suspected primary line infection (grew?from line in 12 hours compared to 20 hours from periphery). Presence of MRSE argues against GI source. UA not suggestive of urinary source. Samantha removed, but then with identification of jesus alberto/pheresis catheter infection. Jesus Alberto removed 08/31. Lines replaced, apheresis occurred and patient discharged. Continues every other week treatments. Also on cyclophosphamide for DAH. Improved pulmonary infiltrates. Doing well but transient fever a few days ago. C diff resolved. ?? RECOMMENDATIONS:? 1. Blood culture from lines to ensure that enterococcus is gone 2. No ID follow up unless new or recurrent infection. Am happy to see her as needed. Dominique Wright MD September 27, 2017 4:35 p.m. PROGRESS Observed: 09/27/2017 Status: COMPLETED Source: [place] 3:48 PM [facility] REPOSITORY HNO ID: [id number] Author: Devi (Rn) JEFF Fernandes Service: (none) Author Type: Registered Nurse Type: Progress Notes Filed: 09/27/2017 5:00 PM Note Text: Sterile dressing change completed on apheresis catheter and PICC catheter sites. Sterile cap change of PICC line performed. No complications. Devi Fernandes RN CNOV Observed: 09/27/2017 Status: COMPLETED Source: [place] 3:45 PM [facility] REPOSITORY Office Visit (INFDMN) PALOMA CANNON ([id number]) 1990 F PTR Date Time Provider Department 09/27/17 3:45 PM DOMINIQUE WRIGHT During your visit today, we recorded the following information about you: Temperature Pulse Respiration Blood pressure 98.3 degrees 119/minute 20/minute 152/90 Weight Height 96.6 kg 1.6 m Dominique Wright MD 09/27/2017 4:38 PM Signed Ms. Cannon is a 27F with a history of APL, DAH, PE, DVTs. Gets apheresis every other week. Seen inpatient in August for line infection of both her partida and her jesus alberto catheter. Lines removed and replaced several days later. INTERVAL EVENTS: Completed her daptomycin therapy for enterococcus and MRSE line infection, blood stream infection. Completed C diff therapy with flagyl a week later. No diarrhea. Feeling well overall. Had transient fever 2 days ago. New kittens at home, nails now clipped. Had some scratches. CURRENT MEDICATIONS: Current Outpatient Prescriptions: ondansetron (ZOFRAN, HYDROCHLORIDE,) 8 mg tablet Take 1 tablet by mouth every 12 hours as needed for Nausea/Vomiting. gabapentin (NEURONTIN) 300 mg capsule Take 600mg in the morningTake 300 mg in the afternoonTake 300mg in the evening COMPOUNDED PRESCRIPTION O2 Condenser- whichever is covered by patient's insurance Acute on chronic respiratory failure with hypoxia (HCC) ?- Primary J96.21Pulmonary HTN I27.20SIRS (systemic inflammatory response syndrome) (HCC) R65.10 cyclophosphamide (CYTOXAN) 50 mg capsule Take 3 capsules by mouth once daily. predniSONE (DELTASONE) 5 mg tablet Take 1 tablet by mouth once daily. warfarin (COUMADIN) 2.5 mg tablet take by mouth as directed in the evening to keep INR between 2.0-3.0 amLODIPine (NORVASC) 5 mg tablet Take 2 tablets by mouth once daily. HOLD FOR SBP ANDlt;120 sulfamethoxazole-trimethoprim (BACTRIM DS) 800-160 mg per tablet Take 1 tablet by mouth every Monday,Monday,Monday. fluticasone (FLONASE) 50 mcg/actuation nasal spray Use 1 [place] in each nostril once daily. pantoprazole DR (PROTONIX) 40 mg tablet Take 1 tablet by mouth DAILY (6 AM). cetirizine 10 mg tablet Take 1 tablet by mouth once daily. (Patient taking differently: Take 10 mg by mouth twice daily. being taper up on the dosage of medication per order. ) senna 8.6 mg tab Take 1 tablet by mouth twice daily as needed. No current facility-administered medications for this visit. ? Examination: BP 112/57 Pulse 94 Temp 36.4 ?C (97.6 ?F) (Oral) Resp 18 Ht 160 cm (5' 2.99ANDquot;) Wt 98.3 kg (216 lb 11.4 oz) SpO2 94% BMI 38.4 kg/m2 Alert, oriented, appears well HEENT left small conjunctival hemorrhage, no thrush NECK supple, no LAD CHEST clear, right samantha now removed, dressing in place, left pheresis catheter removed, site benign HEART regular, no MRG ABDO soft, nontender, mild distension EXTREM left forearm with nodularity, appears an early bruise from minor trauma SKIN single cat scratch on right wrist ?? Laboratory data: 09/18: WBC 5.6, HCT 28, PLTs 78, Cr 1.1 ?? Microbiology data: 09/01: blood x 2 NGTD 08/31: cath tip: ANDlt;100 CFU E faecalis, ANDlt;100 CFU Staph epi 08/30: blood Jesus Alberto cath x 2 GPC clusters and E faecalis 08/28: blood x 2 NGTD 08/26: blood catheter MRSE, blood peripheral NGTD 08/25 blood x 2 E faecalis and now MRSE 2 of 2 sets from and periphery 08/25: stool C diff ?? Imaging data: CXR reviewed, no infiltrates ?? ASSESSMENT:? 1. Antiphospholipid syndrome?(on plasmapheresis- PLEX every other week, prednisone?5/10mg) 2. PE ANDamp;?DVT 09/2013 (s/p b/l iliac v. stents and Endoglix AFX endograft at the inferior vena caval bifurcation) on warfarin,?extensive thrombectomy at outside hospital for right lower extremity and IVC thrombus. 3. DAH x 5 4. HFpEF due to Rituximab. 5.?MRSE BSI attributed to tunneled catheter treated with 6 weeks of iv daptomycin in 02/02. ?? Admitted with fever and diarrhea. Found to have recurrence of C diff colitis and E faecalis+ MRSE?BSI. Suspected primary line infection (grew?from line in 12 hours compared to 20 hours from periphery). Presence of MRSE argues against GI source. UA not suggestive of urinary source. Samantha removed, but then with identification of jesus alberto/pheresis catheter infection. Jesus Alberto removed 08/31. Lines replaced, apheresis occurred and patient discharged. Continues every other week treatments. Also on cyclophosphamide for DAH. Improved pulmonary infiltrates. Doing well but transient fever a few days ago. C diff resolved. ?? RECOMMENDATIONS:? 1. Blood culture from lines to ensure that enterococcus is gone 2. No ID follow up unless new or recurrent infection. Am happy to see her as needed. Dominique Wright MD September 27, 2017 4:35 p.m. Referring Provider: SELF [[id number]] Allergies As of Date: 09/27/2017 Noted Allergy Reaction RHUBARB 10/24/2013 2 - Rash 4 - Hives HEPARIN 10/24/2013 14 - Other: See Comments Comments: Per patient history of HIT - was on angiomax however then took l fondaparinux for bridging to coumadin. IV CONTRAST (IODINE) 2016 14 - Other: See Comments Comments: shuts kidneys down per patient RITUXIMAB 11/09/2016 14 - Other: See Comments Comments: Elevated cardiac enzymes Date Reviewed: 09/27/2017 Reviewed by: Aline Wagner) EDISON Barreto - Fully Assessed Reason for Visit: Follow Up [171] Visit Diagnoses:Central line infection, subsequent encounter [T80.219D] Recurrent Clostridium difficile diarrhea [A04.71] Prescriptions as of 09/27/2017 Sig: ONDANSETRON HCL 8 MG TABLET Take 1 tablet by mouth every * GABAPENTIN 300 MG CAPSULE Take 600mg in the morning Ta* COMPOUNDED PRESCRIPTION O2 Condenser- whichever is co* CYCLOPHOSPHAMIDE 50 MG CAPSULE Take 3 capsules by mouth once* PREDNISONE 5 MG TABLET Take 1 tablet by mouth once d* WARFARIN 2.5 MG TABLET take by mouth as directed in * AMLODIPINE 5 MG TABLET Take 2 tablets by mouth once * SULFAMETHOXAZOLE 800 MG-TRIME* Take 1 tablet by mouth every * FLUTICASONE 50 MCG/ACTUATION * Use 1 [place] in each nostril o* PANTOPRAZOLE 40 MG TABLET,DEL* Take 1 tablet by mouth DAILY * CETIRIZINE 10 MG TABLET Take 1 tablet by mouth once d* Patient taking differently: Take 10 mg by mouth twice lis* SENNOSIDES 8.6 MG TABLET Take 1 tablet by mouth twice * More... More... Problem List As Of Date 09/27/2017 Noted Resolved Catastrophic Antiphospholipid antibody syndrome*INVALID FOR*01/24/2017 Priority: C More... 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 Severe Gastritis [K29.70] INVALID FOR*01/11/2017 Priority: F More... More... More... More... More... Anasarca [R60.1] INVALID FOR*01/24/2017 Priority: E More... More... More... More... More... More... 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 More... More... More... More... More... More... More... More... Hx pulmonary embolism [Z86.711] INVALID FOR*01/11/2017 Priority: C More... H/O deep vein thrombophlebitis of lower extremi*INVALID FOR*03/12/2015 Priority: C More... More... More... More... More... More... Hemoptysis [R04.2] INVALID FOR*12/27/2016 More... Elevated troponin [R74.8] INVALID FOR*01/11/2017 Pancytopenia (HCC) [D61.818] INVALID FOR* Priority: C More... Thrombocytopenia (HCC) [D69.6] INVALID FOR*01/11/2017 More... SUMMARY INVALID FOR*01/24/2017 Priority: A More... SIRS (systemic inflammatory response syndrome) *INVALID FOR*04/15/2015 Priority: D More... DVT (deep venous thrombosis) (HCC) [I82.409] INVALID FOR*01/11/2017 Priority: D More... Iron deficiency anemia [D50.9] INVALID FOR*01/11/2017 Priority: F More... Productive cough, hemoptysis [R04.2] INVALID FOR*01/04/2017 Priority: B Community acquired pneumonia [J18.9] INVALID FOR*01/11/2017 Respiratory failure with hypoxia (HCC) [J96.91] INVALID FOR*01/11/2017 Priority: B More... SOB (shortness of breath) [R06.02] INVALID FOR*12/28/2016 HTN (hypertension) [I10] INVALID FOR* Priority: E More... CAPRICE (acute kidney injury) (HCC) [N17.9] INVALID FOR* Priority: B More... 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 Hx of gastritis [Z87.19] INVALID FOR*01/11/2017 More... Nausea AND vomiting [R11.2] INVALID FOR*08/28/2017 Priority: B More... 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 Anemia associated with acute blood loss [D62] INVALID FOR*01/11/2017 More... More... Acute on chronic respiratory failure with hypox*INVALID FOR* Priority: A More... Abdominal pain [R10.9] INVALID FOR* Priority: E More... Vomiting [R11.10] INVALID FOR*01/04/2017 Antiphospholipid syndrome (HCC) [D68.61] INVALID FOR*01/04/2017 Severe protein-calorie malnutrition (HCC) [E43] INVALID FOR* Priority: B Hypoxia [R09.02] INVALID FOR*01/11/2017 Acute hypoxemic respiratory failure (HCC) [J96.*INVALID FOR*12/28/2016 More... Personal history of DVT (deep vein thrombosis) *INVALID FOR*01/11/2017 More... History of heparin-induced thrombocytopenia [Z8*INVALID FOR* Priority: C More... Hospital-acquired pneumonia [J18.9] INVALID FOR*12/28/2016 Priority: B More... Hypoxemia [R09.02] INVALID FOR*01/11/2017 (HFpEF) heart failure with preserved ejection f*INVALID FOR* Priority: C More... Headache [R51] INVALID FOR*01/18/2017 Priority: I More... More... Peripheral neuropathy (HCC) [G62.9] INVALID FOR* Priority: G Joint pain [M25.50] INVALID FOR*01/11/2017 More... Diffuse arthralgia [M25.50] INVALID FOR*01/11/2017 Priority: C More... CKD (chronic kidney disease) stage 3, GFR 30-59*INVALID FOR* Priority: C More... Obesity, Class III, BMI >= 40 (morbid obesity) *INVALID FOR* Priority: F More... Hypertensive emergency [I16.1] INVALID FOR*12/05/2016 More... Acute on chronic diastolic congestive heart ena*INVALID FOR*01/11/2017 More... APS (antiphospholipid syndrome) (HCC) [D68.61] INVALID FOR* Priority: C More... Elevated troponin level [R74.8] INVALID FOR*12/05/2016 More... Hypertensive urgency [I16.0] INVALID FOR*12/05/2016 PNA (pneumonia) [J18.9] INVALID FOR*12/27/2016 Acute respiratory failure with hypoxia (HCC) [J*INVALID FOR*12/27/2016 Clostridium difficile colitis [A04.72] INVALID FOR*12/28/2016 Hemoptysis [R04.2] INVALID FOR*01/20/2017 More... More... Supratherapeutic INR [R79.1] INVALID FOR*04/28/2017 Priority: B More... Cholelithiasis [K80.20] INVALID FOR*01/24/2017 Priority: B More... Ecchymosis of right eye [S05.11XA] INVALID FOR*01/18/2017 Priority: H More... Anticoagulation management encounter [Z51.81, Z*INVALID FOR* Priority: D Acute respiratory failure (HCC) [J96.00] INVALID FOR*02/10/2017 Priority: A More... Pulmonary HTN (HCC) [I27.20] INVALID FOR* Priority: F More... GERD (gastroesophageal reflux disease) [K21.9] INVALID FOR* Priority: E More... RUQ abdominal pain [R10.11] INVALID FOR* Priority: E More... Hemoptysis [R04.2] INVALID FOR*03/11/2017 More... Diarrhea [R19.7] INVALID FOR* Priority: E More... Bacteremia [R78.81] INVALID FOR* Priority: B More... History of HIT (heparin-induced thrombocytopeni*INVALID FOR* More... Recurrent deep vein thrombosis (DVT) (HCC) [I82*INVALID FOR* More... 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 Edema [R60.9] INVALID FOR*08/28/2017 Priority: A More... Flu-like symptoms [R68.89] INVALID FOR*06/10/2017 Hypercoagulable state (HCC) [D68.59] INVALID FOR* Priority: B More... Healthcare maintenance [Z00.00] INVALID FOR* More... Iron deficiency anemia secondary to inadequate *INVALID FOR* Priority: D More... SIRS (systemic inflammatory response syndrome) *INVALID FOR* More... Fever of undetermined origin [R50.9] INVALID FOR*08/25/2017 Red man syndrome [L27.0] INVALID FOR*08/28/2017 More... Sepsis due to Enterococcus (HCC) [A41.81] INVALID FOR* Priority: A Bacteremia due to Staphylococcus epidermidis [R*INVALID FOR* More... Encounter Status:Closed by DOMINIQUE WRIGHT MD on 09/27/17 CNOVSP Observed: 09/27/2017 Status: COMPLETED Source: [place] 3:00 PM [facility] REPOSITORY Visit [facility] PALOMA CANNON ([id number]) 1990 F PTR Date Time Provider Department 09/27/17 3:00 PM [facility] During your visit today, we recorded the following information about you: Devi Fernandes, RN, RN 09/27/2017 5:00 PM Signed Sterile dressing change completed on apheresis catheter and PICC catheter sites. Sterile cap change of PICC line performed. No complications. Devi Fernandes, RN Referring Provider: SELF [200] Allergies As of Date: 09/27/2017 Noted Allergy Reaction RHUBARB 10/24/2013 2 - Rash 4 - Hives HEPARIN 10/24/2013 14 - Other: See Comments Comments: Per patient history of HIT - was on angiomax however then took l fondaparinux for bridging to coumadin. IV CONTRAST (IODINE) 2016 14 - Other: See Comments Comments: shuts kidneys down per patient RITUXIMAB 11/09/2016 14 - Other: See Comments Comments: Elevated cardiac enzymes Date Reviewed: 09/27/2017 Reviewed by: Aline Wagner) EDISON Barreto - Fully Assessed Primary Visit Diagnosis:APS (antiphospholipid syndrome) ([facility]) [D68.61] Prescriptions as of 09/27/2017 Sig: ONDANSETRON HCL 8 MG TABLET Take 1 tablet by mouth every * GABAPENTIN 300 MG CAPSULE Take 600mg in the morning Ta* COMPOUNDED PRESCRIPTION O2 Condenser- whichever is co* CYCLOPHOSPHAMIDE 50 MG CAPSULE Take 3 capsules by mouth once* PREDNISONE 5 MG TABLET Take 1 tablet by mouth once d* WARFARIN 2.5 MG TABLET take by mouth as directed in * AMLODIPINE 5 MG TABLET Take 2 tablets by mouth once * SULFAMETHOXAZOLE 800 MG-TRIME* Take 1 tablet by mouth every * FLUTICASONE 50 MCG/ACTUATION * Use 1 [place] in each nostril o* PANTOPRAZOLE 40 MG TABLET,DEL* Take 1 tablet by mouth DAILY * CETIRIZINE 10 MG TABLET Take 1 tablet by mouth once d* Patient taking differently: Take 10 mg by mouth twice lis* SENNOSIDES 8.6 MG TABLET Take 1 tablet by mouth twice * More... More... Problem List As Of Date 09/27/2017 Noted Resolved Catastrophic Antiphospholipid antibody syndrome*INVALID FOR*01/24/2017 Priority: C More... 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 Severe Gastritis [K29.70] INVALID FOR*01/11/2017 Priority: F More... More... More... More... More... Anasarca [R60.1] INVALID FOR*01/24/2017 Priority: E More... More... More... More... More... More... 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 More... More... More... More... More... More... More... More... Hx pulmonary embolism [Z86.711] INVALID FOR*01/11/2017 Priority: C More... H/O deep vein thrombophlebitis of lower extremi*INVALID FOR*03/12/2015 Priority: C More... More... More... More... More... More... Hemoptysis [R04.2] INVALID FOR*12/27/2016 More... Elevated troponin [R74.8] INVALID FOR*01/11/2017 Pancytopenia (HCC) [D61.818] INVALID FOR* Priority: C More... Thrombocytopenia (HCC) [D69.6] INVALID FOR*01/11/2017 More... SUMMARY INVALID FOR*01/24/2017 Priority: A More... SIRS (systemic inflammatory response syndrome) *INVALID FOR*04/15/2015 Priority: D More... DVT (deep venous thrombosis) (HCC) [I82.409] INVALID FOR*01/11/2017 Priority: D More... Iron deficiency anemia [D50.9] INVALID FOR*01/11/2017 Priority: F More... Productive cough, hemoptysis [R04.2] INVALID FOR*01/04/2017 Priority: B Community acquired pneumonia [J18.9] INVALID FOR*01/11/2017 Respiratory failure with hypoxia (HCC) [J96.91] INVALID FOR*01/11/2017 Priority: B More... SOB (shortness of breath) [R06.02] INVALID FOR*12/28/2016 HTN (hypertension) [I10] INVALID FOR* Priority: E More... CAPRICE (acute kidney injury) (HCC) [N17.9] INVALID FOR* Priority: B More... 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 Hx of gastritis [Z87.19] INVALID FOR*01/11/2017 More... Nausea AND vomiting [R11.2] INVALID FOR*08/28/2017 Priority: B More... 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 Anemia associated with acute blood loss [D62] INVALID FOR*01/11/2017 More... More... Acute on chronic respiratory failure with hypox*INVALID FOR* Priority: A More... Abdominal pain [R10.9] INVALID FOR* Priority: E More... Vomiting [R11.10] INVALID FOR*01/04/2017 Antiphospholipid syndrome (HCC) [D68.61] INVALID FOR*01/04/2017 Severe protein-calorie malnutrition (HCC) [E43] INVALID FOR* Priority: B Hypoxia [R09.02] INVALID FOR*01/11/2017 Acute hypoxemic respiratory failure (HCC) [J96.*INVALID FOR*12/28/2016 More... Personal history of DVT (deep vein thrombosis) *INVALID FOR*01/11/2017 More... History of heparin-induced thrombocytopenia [Z8*INVALID FOR* Priority: C More... Hospital-acquired pneumonia [J18.9] INVALID FOR*12/28/2016 Priority: B More... Hypoxemia [R09.02] INVALID FOR*01/11/2017 (HFpEF) heart failure with preserved ejection f*INVALID FOR* Priority: C More... Headache [R51] INVALID FOR*01/18/2017 Priority: I More... More... Peripheral neuropathy (HCC) [G62.9] INVALID FOR* Priority: G Joint pain [M25.50] INVALID FOR*01/11/2017 More... Diffuse arthralgia [M25.50] INVALID FOR*01/11/2017 Priority: C More... CKD (chronic kidney disease) stage 3, GFR 30-59*INVALID FOR* Priority: C More... Obesity, Class III, BMI >= 40 (morbid obesity) *INVALID FOR* Priority: F More... Hypertensive emergency [I16.1] INVALID FOR*12/05/2016 More... Acute on chronic diastolic congestive heart ena*INVALID FOR*01/11/2017 More... APS (antiphospholipid syndrome) (HCC) [D68.61] INVALID FOR* Priority: C More... Elevated troponin level [R74.8] INVALID FOR*12/05/2016 More... Hypertensive urgency [I16.0] INVALID FOR*12/05/2016 PNA (pneumonia) [J18.9] INVALID FOR*12/27/2016 Acute respiratory failure with hypoxia (HCC) [J*INVALID FOR*12/27/2016 Clostridium difficile colitis [A04.72] INVALID FOR*12/28/2016 Hemoptysis [R04.2] INVALID FOR*01/20/2017 More... More... Supratherapeutic INR [R79.1] INVALID FOR*04/28/2017 Priority: B More... Cholelithiasis [K80.20] INVALID FOR*01/24/2017 Priority: B More... Ecchymosis of right eye [S05.11XA] INVALID FOR*01/18/2017 Priority: H More... Anticoagulation management encounter [Z51.81, Z*INVALID FOR* Priority: D Acute respiratory failure (HCC) [J96.00] INVALID FOR*02/10/2017 Priority: A More... Pulmonary HTN (HCC) [I27.20] INVALID FOR* Priority: F More... GERD (gastroesophageal reflux disease) [K21.9] INVALID FOR* Priority: E More... RUQ abdominal pain [R10.11] INVALID FOR* Priority: E More... Hemoptysis [R04.2] INVALID FOR*03/11/2017 More... Diarrhea [R19.7] INVALID FOR* Priority: E More... Bacteremia [R78.81] INVALID FOR* Priority: B More... History of HIT (heparin-induced thrombocytopeni*INVALID FOR* More... Recurrent deep vein thrombosis (DVT) (HCC) [I82*INVALID FOR* More... 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 Edema [R60.9] INVALID FOR*08/28/2017 Priority: A More... Flu-like symptoms [R68.89] INVALID FOR*06/10/2017 Hypercoagulable state (HCC) [D68.59] INVALID FOR* Priority: B More... Healthcare maintenance [Z00.00] INVALID FOR* More... Iron deficiency anemia secondary to inadequate *INVALID FOR* Priority: D More... SIRS (systemic inflammatory response syndrome) *INVALID FOR* More... Fever of undetermined origin [R50.9] INVALID FOR*08/25/2017 Red man syndrome [L27.0] INVALID FOR*08/28/2017 More... Sepsis due to Enterococcus (HCC) [A41.81] INVALID FOR* Priority: A Bacteremia due to Staphylococcus epidermidis [R*INVALID FOR* More... Encounter Status:Closed by LISSETH CLAUDIO MD on 09/27/17 PROTHROMBIN TIME W/INR Collected: 09/22/2017 Status: F Source: [place] 8:05 AM [facility] REPOSITORY Order Comment: MEDOUT/PORT DRAW TYPE CODE TESTS RESULT OUT OF RANGE REFERENCE UNITS LAB L300.4150 11.7-14.9 SECONDS High PROTIME 19.4 LAB L300.4200 Normal INR 1.6 Performed By: #### L300.3900 #### [facility] [address] [place], [address] PROGRESS Observed: 09/18/2017 Status: COMPLETED Source: [place] 1:57 PM [facility] REPOSITORY HNO ID: [id number] Author: Elsa Mello (Coord) Service: (none) Author Type: Toolmaker Helper Type: Progress Notes Filed: 09/18/2017 1:57 PM Note Text: Patient had appointments today at [facility]. I provided a parking pass. Adriana Mello Patient Cable Driller [facility] [phone] / [phone] PROGRESS Observed: 09/18/2017 Status: COMPLETED Source: [place] 1:13 PM [facility] REPOSITORY HNO ID: [id number] Author: Lisseth Claudio MD Service: (none) Author Type: Physician Type: Progress Notes Filed: 09/18/2017 3:30 PM Note Text: APHERESIS TPA INSTILLATION AT THERAPEUTIC APHERESIS PATIENT NAME: Paloma Cannon Problem: Difficult to aspirate from ports. Benefits, risks, alternatives of TPA instillation discussed. TPA instilled: 2 ml in red port and 2 ml in blue port. After 30 minutes, aspiration of TPA from red and blue ports with ease and success. Treatment started. Signed by: Devi Fernandes RN APHERESIS THERAPEUTIC PLASMAPHERESIS PATIENT NAME: Paloma Cannon : 1990 AGE:[age] year old Gender: female Treatment #: 85 Diagnosis: CAPS Primary Service/Physician: Hematology: Dr. Bessy Andujar Treatment performed at Apheresis Unit ([facility]). Patient arrived by chair and with family. Patient identifier(s): Patient name Paloma Cannon, Date of - 1990. Procedure start time: 12:00 ROS: fever: none, chills: none, breathing unlabored, no cough, no chest pains, no swelling in hands, no ankle swelling, general energy good, urine output Good. PE: Patient alert and oriented. Catheter site dressing: Intact, Clean and Dry; Dressing changed. Catheter site dry and no drainage; catheter tunnel non tender. Lungs: clear to auscultation, respirations normal, heart regular rhythm, peripheral edema none in hands or feet. Is the patient having any pain? No 0 on a scale of 0 to 10 Lab drawn at start: CBC, diff, CMP and lupus anticoag panel Access: left, indwelling, central line and red port Return: left and blue port Medications given: See [facility] audit report. Volume treated: 6505 ml whole blood Volume removed: 4368 ml plasma Volume replaced: 1000 ml NSS , 1000 ml 5% Albumin and 1505 ml FFP Extra fluids: None. ACD used 650 ml. 10% calcium gluconate 30 ml. Net fluid balance: +11 ml Upon completion of treatment: Flushed Red with 10 ml NSS and 3 ml 4% Sodium Citrate and Blue with 10 ml NSS and 3 ml 4% Sodium Citrate. IV Access: Red, Blue and port caps changes Vital signs: temp 97.6, pulse 100, BP 129/73, Resp 18/min Procedure end time: 14:52 Patient tolerated well. Voiced no complaints. Patient discharged by chair with spouse to home. Next treatment: 10/02/2017 Signed by: Devi Fernandes RN DR. FRED STONE, SR. HOSPITAL STAFF PHYSICIAN NOTE OF PERSONAL INVOLVEMENT IN CARE Mrs. Cannon tolerated the treatment without any acute events. She feels well. Her next plasma exchange will be in 2 weeks. Will continue to coordinate with the Hematology team. I reviewed the patients labs, medications and allergies prior to proceeding with this therapeutic treatment and discussed the case and parameters with the apheresis nurse. I have reviewed this therapeutic progress note documented by the apheresis nurse. I personally participated in all pertinent aspects and fernandes components of the therapeutic treatment. I was present during the treatment. Signature: Lisseth Claudio MD September 18, 2017 3:29 PM Pager: [phone] CBC AND DIFFERENTIAL Collected: 09/18/2017 Status: F Source: [place] 12:36 PM [facility] REPOSITORY TYPE CODE TESTS RESULT OUT OF REFERENCE UNITS RANGE LAB WBC 3.70-11.00 k/uL WBC 5.69 LAB RBC 3.90-5.20 m/uL Low RBC 3.23 LAB HGB 11.5-15.5 g/dL Low Hemoglobin 8.6 LAB HCT 36.0-46.0 % Low Hematocrit 28.0 LAB MCV 80.0-100.0 fL MCV 86.7 LAB MCH 26.0-34.0 pG MCH 26.6 LAB MCHC 30.5-36.0 g/dL MCHC 30.7 LAB RDWCV 11.5-15.0 % RDW-CV High 21.3 LAB PLTCT 150-400 k/uL Low Platelet Count 78 Result Comment: Result checked and verified No clot detected. LAB MPV 9.0-12.7 fL MPV <<DO NOT REPORT>> LAB ANEUT % Neut% 84.6 LAB AANEUT 1.45-7.50 k/uL Abs 4.81 Neut LAB ALYMP % 5.4 Lymph% LAB AALYMP 1.00-4.00 k/uL Abs 0.31 Low Lymph LAB AMONO % [place]% 6.3 LAB AAMONO <0.87 k/uL Abs 0.36 [place] LAB AEOS % 3.0 Eosin% LAB AAEOS <0.46 k/uL Abs 0.17 Eosin LAB ABASO % Baso% 0.7 LAB AABASO <0.11 k/uL Abs 0.04 Baso LAB AUNRBC 0 /100 WBC NRBCs 0.0 LAB ABNRBC <0.01 k/uL <0.01 Absolute nRBC LAB DTYP DTYPE Auto Diff Performed By: #### CBCDIF, CMP #### [facility] [address] [place], [place] [address] COMP METABOLIC PANEL Collected: 09/18/2017 Status: F Source: [place] 12:36 PM [facility] REPOSITORY TYPE CODE TESTS RESULT OUT OF REFERENCE UNITS RANGE LAB TP 6.3-8.0 g/dL Low Protein, Total 5.8 LAB ALB 3.9-4.9 g/dL Low Albumin 3.6 LAB CA 8.5-10.2 mg/dL Calcium, Total 8.8 LAB TBIL 0.2-1.3 mg/dL Bilirubin, Total 0.6 LAB ALKP 32-117 U/L Alkaline Phosphatase 58 LAB AST 13-35 U/L AST 20 LAB GLU 74-99 mg/dL Glucose 99 Result Comment: The [place] [employer] (ADA) provides guidance for cutoff values for fasting glucose and random glucose. The ADA defines fasting as no caloric intake for at least 8 hours. Fas ting plasma glucose results between 100 to 125 mg/dL indicate increased risk for diabetes (prediabetes). Fasting plasma glucose results greater than or equal to 126 mg/dL meet the criteria for diagnosis of diabetes. In the absence of unequivocal hyperglycemia, results should be confirmed by repeat testing. In a patient with classic symptoms of hyperglycemia or hyperglycemic crisis, random plasma glucose results greater than or equal to 200 mg/dL meet the criteria for diagnosis of diabetes. Reference: Standards of Medical Care in Diabetes 2016, [place] [employer] Association. Diabetes Care. 2016.39(Suppl 1). LAB BUN 7-21 mg/dL BUN 17 LAB CRET 0.58-0.96 mg/dL Creatinine High 1.12 LAB NA 136-144 mmol/L Sodium 140 LAB K 3.7-5.1 mmol/L Potassium 3.9 LAB CL 97-105 mmol/L Chloride 102 LAB CO2 22-30 mmol/L CO2 23 LAB AGAP 9-18 mmol/L Anion Gap 15 LAB ALT 7-38 U/L ALT 8 LAB GFRAA eGFR- Amer. >60 LAB GFRNAA . eGFR-All Other Races 58 Result Comment: eGFR (Estimated GFR) Units of measure: mL/min/1.73 meters squared eGFR is derived from the reexpressed MDRD Study equation using the following parameters: serum creatinine, age, gender and race. The creatinine assay has been calibrated to be traceable to IDMS. An eGFR <60 mL/min/1.73m2 for >3 months is consistent with chronic kidney disease. Refer to KDOQI guidelines for clinical interpretation. In patients with unstable renal function, e.g. those with acute kidney injury, the eGFR may not accurately reflect actual GFR. Performed By: #### CBCDIF, CMP #### [facility] [address] [place], [place] [address] FACTOR VIII:C ASSAY Collected: 09/18/2017 Status: F Source: [place] 12:36 PM [facility] REPOSITORY TYPE CODE TESTS RESULT OUT OF REFERENCE UNITS RANGE LAB FVIIIC 50-173 % High Factor 208 VIII:C Assay Result Comment: The factor VIII clottable activity level is elevated This can be observed during the acute phase response. Persistent elevation of factor VIII, however, has been shown to be a risk factor for venous thrombosis. Suggest rechecking the factor VIII level in 1-2 months. Performed By: #### FVIIIC, LUPUSP #### [facility] [address], [place] [address] LUPUS ANTICOAG PANEL Collected: 09/18/2017 Status: F Source: [place] 12:36 [facility] REPOSITORY TYPE CODE TESTS RESULT OUT OF RANGE REFERENCE UNITS LAB PSEC 9.7-13.0 sec High PT Sec 14.6 LAB INR 0.9-1.3 High PT INR 1.4 Result Comment: Vitamin K Antagonist (VKA) Therapeutic Range: INR 2 to 3 (Target INR of 2.5) Note: For patients treated with VKA drugs, such as warfarin, the [place] [employer] 2012 Guideline recommends a therapeutic INR range of 2 to 3 (target INR of 2.5). This recommendation includes high-risk patients with antiphospholipid syndrome with previous arterial or venous thromboembolism, current-generation mechanical or bioprosthetic aortic heart valve replacement. Note: Patients with mechanical aortic valve replacement and additional risk factors for thromboembolic events (atrial fibrillation, previous thromboembolism, LV dysfunction, hypercoagulable conditions) or an older generation mechanical AVR (i.e., ball in-Cage) or any mechanical MVR should have a INR therapeutic range of 2.5 to 3.5 (target INR of 3). Arlettett GH, et al. Chest 2012, 141:7S-47S Diogenes RA, et al. [facility] 2017, 70: 252-289 LAB APTT 23.0-32.4 sec APTT 28.9 Result Comment: Unfractionated Heparin Therapeutic Ranges: Standard Heparin Nomogram: 53 to 78 seconds (anti-Xa level of 0.3 to 0.7 U/ml) Low Dose/ACS Nomogram: 49 to 67 seconds (anti-Xa level of 0.2 to 0.5 U/ml) Stroke Treatment Nomogram: 49 to 67 seconds (anti-Xa level of 0.2 to 0.5 U/ml) Note: The APTT therapeutic range has been determined for the current lot of laboratory APTT reagent in use throughout the [facility]. LAB PLTNEU Negative Abnormal Alert PNP Positive LAB DRVSCN 32.7-46.7 sec High DRVVT Screen 84.2 LAB DRVRAT <1.21 High DRVVT Confirm 1.98 Ratio Result Comment: Result rechecked. LAB DRVMIX 32.7-46.7 sec High DRVVT 1:1 55.1 Mix Result Comment: Result rechecked. LAB HEXSCN 48.9-70.2 sec Hex Phase Screen 64.7 LAB HEXMIX 45.1-64.1 sec Hex Phase Confirm 53.7 Result Comment: Result rechecked. LAB HEXDEL <9.0 delta sec High Hex Phase 11.0 Delta Result Comment: Result rechecked. LAB APTTSC 24.4-33.4 sec APTT Screen High 36.6 LAB IMPTT <30.9 sec Immed. PTT 1:1 Mix 29.2 LAB 1HRPTT <33.6 sec Incub. PTT 1:1 Mix 30.9 LAB TT <18.6 sec Thrombin Time 14.5 LAB LUPINT Interpretation (NOTE) Result Comment: Performing Pathologist: Dr. Newton Figueroa M.D., Ph.D. Abnormal - see comment below. SIGNIFICANT FINDINGS: 1. Warfarin effect 2. Lupus Anticoagulant: POSITIVE 3. Anticardiolipin Antibody: IgG POSITIVE 4. Beta 2 Glycoprotein I Antibody: IgG POSITIVE 5. Elevated factor VIII Laboratory testing was performed to evaluate the presence of a lupus anticoagulant and anti-phospholipid antibodies. Both the PT/INR and APTT values were prolonged. A screening assay for heparin was negative. The thrombin time was normal. The PT/INR is most likely elevated due to the patient's history of warfarin therapy. LUPUS ANTICOAGULANT STUDIES: This specimen meets all four ISTH criteria, including a positive screening test, a positive mixing study, demonstration of phospholipid dependence and exclusion of other coagulopathies or inhibitors. The laboratory findings are diagnostic of a lupus anticoagulant. Suggest retesting in 12 weeks to confirm, as lupus anticoagulants may be transient. If positive testing is observed on two or more occasions at least 12 weeks apart, this may be indicative of the antiphospholipid antibody syndrome, if observed in the correct clinical setting. The criteria for the diagnosis of a Lupus Anticoagulant, as detailed by the Subcommittee on Lupus Anticoagulants and Anti-Phospholipid Antibodies of the Scientific and Standardization Committee of the International Society on Thrombosis and Haemostasis (ISTH), are the following: (1) A prolonged phospholipid-dependent clotting test (screening test); (2) Evidence for an inhibitor (1:1 mix of patient:normal plasma); (3) Evidence that the inhibitor is phospholipid dependent and (4) Exclusion of specific inhibitors (ie, fVIII inhibitors, direct thrombin inhibitors, or heparin). Thromb. Haemost. 74:1185 (1995). The factor VIII clottable activity level is elevated. This can be observed during the acute phase response. Persistent elevation of factor VIII, however, has been shown to be a risk factor for venous thrombosis. Suggest rechecking the factor VIII level in 1- 2 months. ANTIPHOSPHOLIPID ANTIBODY STUDIES: The IgG anticardiolipin antibody titer was positive. The presence of an IgG anticardiolipin antibody (a type of antiphospholipid antibody) has been shown to be a risk factor for both venous and arterial thrombosis. The IgG Beta-2 Glycoprotein I antibody titer was positive. The presence of an IgG Beta-2 Glycoprotein I antibody (a type of antiphospholipid antibody) has been shown to be a risk factor for both venous and arterial thrombosis. Suggest retesting in 12 weeks to confirm, as anticardiolipin and anti-beta-2 glycoprotein I antibodies may be transient. If the titer is elevated on two or more occasions at least 12 weeks apart, this may be indicative of the anti-phospholipid antibody syndrome, if observed in the correct clinical setting. Antiphospholipid antibody syndrome (APS) is present if at least one clinical criteria and one laboratory criteria are met. The clinical criteria for APS include the presence of vascular thrombosis or morbidity. The laboratory criteria for APS include positive testing for one of the following on two or more occasions, at least 12 weeks apart: (1) lupus anticoagulant ; (2) anticardiolipin IgG or IgM in medium or high titer (>40 GPL or >40 MPL) ; (3) anti- beta 2 glycoprotein I IgG or IgM antibody. J. Thromb Haemost 4:295 (2006). THE FOLLOWING TESTS WERE ADDED AND ARE REPORTED SEPARATELY: factor VIII LAB CARDG 0-9 GPL High IgG Cardiolipin Ab. 61 Result Comment: <10 GPL Negative 10-40 GPL Equivocal >40 GPL Positive The following results were obtained with the [employer] QUANTA Lite JOESPH IgG III JESSICA. Cardiolipin IgG values obtained with the different manufacturers' assay methods may not be used interchangeably. The mag nitude of the reported IgG levels cannot be correlated to an endpoint titer. LAB CARDM 0-11 MPL IgM Cardiolipin Ab. <9 Result Comment: <12 MPL Negative 12-40 MPL Equivocal >40 MPL Positive The following results were obtained with the [employer] QUANT[employer] Lite JOSEPH IgM III JESSICA. Cardiolipin IgM values obtained with different manufacturers' assay methods may not be used interchangeably. The magnitu de of the reported IgM levels cannot be correlated to an endpoint titer. LAB CARDA 0-11 APL IgA Cardiolipin Ab. <9 Result Comment: <12 APL Negative 12-40 APL Equivocal >40 APL Positive The following results were obtained with an [employer] QU[employer] Lite JOESPH IgA III JESSICA. Cardiolipin IgA values obtained with different manufacturers' assay methods may not be used interchangeably. The magnitud e of the reported IgA levels cannot be correlated to an endpoint titer. LAB B2GPG <20 SGU High Beta2 Glycoprot IgG >150 Result Comment: < 20 SGU Negative 20-80 SGU Low Positive > 80 SGU High Positive These results were obtained with the [employer] Lite B2 GPI IgG JESSICA. B2 GPI IgG values obtained with different manufacturers' assay methods may not be used interchangeably. The magnitude of the repo rted IgG levels cannot be correlated to an endpoint titer. LAB B2GPM <20 SMU Beta2 Glycoprot IgM <9 Result Comment: < 20 SMU Negative 20-80 SMU Low Positive > 80 SMU High Positive These results were obtained with the [employer] QUANTA Lite B2 GPI IgM JESSICA. B2 GPI IgM values obtained with different manufacturers' assay methods may not be used interchangeably. The magnitude of the repo rted IgM levels cannot be correlated to an endpoint titer. Performed By: #### FVIIIC, LUPUSP #### [facility] [address] [id number] CNOVSP Observed: 09/18/2017 Status: COMPLETED Source: [place] 12:00 PM [facility] REPOSITORY Visit (SP) Office ([facility]) DAVISPALOMA Stewart ([id number]) 1990 [facility] Date Time Provider Department 09/18/17 12:00 PM [facility] During your visit today, we recorded the following information about you: Temperature Pulse Respiration Blood pressure 98.1 degrees 99/minute 18/minute 147/70 Weight 97.4 kg Lisseth Claudio MD, MD 09/18/2017 3:30 PM Signed APHERESIS TPA INSTILLATION AT THERAPEUTIC APHERESIS PATIENT NAME: Paloma Cannon Problem: Difficult to aspirate from ports. Benefits, risks, alternatives of TPA instillation discussed. TPA instilled: 2 ml in red port and 2 ml in blue port. After 30 minutes, aspiration of TPA from red and blue ports with ease and success. Treatment started. Signed by: Devi Fernandes RN APHERESIS THERAPEUTIC PLASMAPHERESIS PATIENT NAME: Paloma Cannon : 1990 AGE:[age] year old Gender: female Treatment #: 85 Diagnosis: CAPS Primary Service/Physician: Hematology: Dr. Bessy Andujar Treatment performed at Apheresis Unit ([facility]). Patient arrived by chair and with family. Patient identifier(s): Patient name Paloma Cannon, Date of - 1990. Procedure start time: 12:00 ROS: fever: none, chills: none, breathing unlabored, no cough, no chest pains, no swelling in hands, no ankle swelling, general energy good, urine output Good. PE: Patient alert and oriented. Catheter site dressing: Intact, Clean and Dry; Dressing changed. Catheter site dry and no drainage; catheter tunnel non tender. Lungs: clear to auscultation, respirations normal, heart regular rhythm, peripheral edema none in hands or feet. Is the patient having any pain? No 0 on a scale of 0 to 10 Lab drawn at start: CBC, diff, CMP and lupus anticoag panel Access: left, indwelling, central line and red port Return: left and blue port Medications given: See [facility] audit report. Volume treated: 6505 ml whole blood Volume removed: 4368 ml plasma Volume replaced: 1000 ml NSS , 1000 ml 5% Albumin and 1505 ml FFP Extra fluids: None. ACD used 650 ml. 10% calcium gluconate 30 ml. Net fluid balance: +11 ml Upon completion of treatment: Flushed Red with 10 ml NSS and 3 ml 4% Sodium Citrate and Blue with 10 ml NSS and 3 ml 4% Sodium Citrate. IV Access: Red, Blue and port caps changes Vital signs: temp 97.6, pulse 100, BP 129/73, Resp 18/min Procedure end time: 14:52 Patient tolerated well. Voiced no complaints. Patient discharged by chair with spouse to home. Next treatment: 10/02/2017 Signed by: Devi Fernandes RN DR. FRED STONE, SR. HOSPITAL STAFF PHYSICIAN NOTE OF PERSONAL INVOLVEMENT IN CARE Mrs. Cannon tolerated the treatment without any acute events. She feels well. Her next plasma exchange will be in 2 weeks. Will continue to coordinate with the Hematology team. I reviewed the patients labs, medications and allergies prior to proceeding with this therapeutic treatment and discussed the case and parameters with the apheresis nurse. I have reviewed this therapeutic progress note documented by the apheresis nurse. I personally participated in all pertinent aspects and fernandes components of the therapeutic treatment. I was present during the treatment. Signature: Lisseth Claudio MD September 18, 2017 3:29 PM Pager: [phone] Referring Provider: LISSETH CLAUDIO [[id number]] Allergies As of Date: 09/18/2017 Noted Allergy Reaction RHUBARB 10/24/2013 2 - Rash 4 - Hives HEPARIN 10/24/2013 14 - Other: See Comments Comments: Per patient history of HIT - was on angiomax however then took l fondaparinux for bridging to coumadin. IV CONTRAST (IODINE) 2016 14 - Other: See Comments Comments: shuts kidneys down per patient RITUXIMAB 11/09/2016 14 - Other: See Comments Comments: Elevated cardiac enzymes Date Reviewed: 09/18/2017 Reviewed by: Devi SanchezRn) JEFF Fernandes - Fully Assessed Reason for Visit: Plasmapheresis [1323] Primary Visit Diagnosis:APS (antiphospholipid syndrome) ([facility]) [D68.61] Order(s):LUPUS ANTICOAG PL [SQLUPUSP] Order #: [id number]. #:[id number] CBC + DIFF [SQCBCDIF] Order #: [id number]. #:[id number] COMP METABOLIC PANEL [SQCMP] Order #: [id number]. #:[id number] [facility] NURSING COMMUNICATION [[id number]] Order #: [id number]: 1 TREATMENT PARAMETERS [[id number]] Order #: [id number]: 1 [facility] NURSING COMMUNICATION [[id number]] Order #: [id number]: 1 STANDING [] diphenhydrAMINE 50 mg injection (BENADRYL)Disp: Rfl: [] hydrocortisone sodium succinate (PF) 100 mg injection (Solu-CORTEF)Disp: Rfl: [] calcium gluconate 3 g in NaCl 0.9% 1,000 mLDisp: Rfl: [] albumin (5%) 50 g infusionDisp: Rfl: citrate dextrose solution (ACD-A) infusionDisp: Rfl: 0.9% NaCl 10-20 mLDisp: Rfl: sodium citrate 4% 3-6 mL catheter lockDisp: Rfl: [] alteplase (CATHFLO) injection 2 mgDisp: Rfl: [] alteplase (CATHFLO) injection 2 mgDisp: Rfl: Prescriptions as of 09/18/2017 Sig: ONDANSETRON HCL 8 MG TABLET Take 1 tablet by mouth every * GABAPENTIN 300 MG CAPSULE Take 600mg in the morning Ta* COMPOUNDED PRESCRIPTION O2 Condenser- whichever is co* CYCLOPHOSPHAMIDE 50 MG CAPSULE Take 3 capsules by mouth once* PREDNISONE 5 MG TABLET Take 1 tablet by mouth once d* WARFARIN 2.5 MG TABLET take by mouth as directed in * AMLODIPINE 5 MG TABLET Take 2 tablets by mouth once * SULFAMETHOXAZOLE 800 MG-TRIME* Take 1 tablet by mouth every * FLUTICASONE 50 MCG/ACTUATION * Use 1 [place] in each nostril o* PANTOPRAZOLE 40 MG TABLET,DEL* Take 1 tablet by mouth DAILY * CETIRIZINE 10 MG TABLET Take 1 tablet by mouth once d* Patient taking differently: Take 10 mg by mouth twice lis* SENNOSIDES 8.6 MG TABLET Take 1 tablet by mouth twice * More... More... Problem List As Of Date 09/18/2017 Noted Resolved Catastrophic Antiphospholipid antibody syndrome*INVALID FOR*01/24/2017 Priority: C More... 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 Severe Gastritis [K29.70] INVALID FOR*01/11/2017 Priority: F More... More... More... More... More... Anasarca [R60.1] INVALID FOR*01/24/2017 Priority: E More... More... More... More... More... More... 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 More... More... More... More... More... More... More... More... Hx pulmonary embolism [Z86.711] INVALID FOR*01/11/2017 Priority: C More... H/O deep vein thrombophlebitis of lower extremi*INVALID FOR*03/12/2015 Priority: C More... More... More... More... More... More... Hemoptysis [R04.2] INVALID FOR*12/27/2016 More... Elevated troponin [R74.8] INVALID FOR*01/11/2017 Pancytopenia (HCC) [D61.818] INVALID FOR* Priority: C More... Thrombocytopenia (HCC) [D69.6] INVALID FOR*01/11/2017 More... SUMMARY INVALID FOR*01/24/2017 Priority: A More... SIRS (systemic inflammatory response syndrome) *INVALID FOR*04/15/2015 Priority: D More... DVT (deep venous thrombosis) (HCC) [I82.409] INVALID FOR*01/11/2017 Priority: D More... Iron deficiency anemia [D50.9] INVALID FOR*01/11/2017 Priority: F More... Productive cough, hemoptysis [R04.2] INVALID FOR*01/04/2017 Priority: B Community acquired pneumonia [J18.9] INVALID FOR*01/11/2017 Respiratory failure with hypoxia (HCC) [J96.91] INVALID FOR*01/11/2017 Priority: B More... SOB (shortness of breath) [R06.02] INVALID FOR*12/28/2016 HTN (hypertension) [I10] INVALID FOR* Priority: E More... CAPRICE (acute kidney injury) (HCC) [N17.9] INVALID FOR* Priority: B More... 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 Hx of gastritis [Z87.19] INVALID FOR*01/11/2017 More... Nausea AND vomiting [R11.2] INVALID FOR*08/28/2017 Priority: B More... 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 Anemia associated with acute blood loss [D62] INVALID FOR*01/11/2017 More... More... Acute on chronic respiratory failure with hypox*INVALID FOR* Priority: A More... Abdominal pain [R10.9] INVALID FOR* Priority: E More... Vomiting [R11.10] INVALID FOR*01/04/2017 Antiphospholipid syndrome (HCC) [D68.61] INVALID FOR*01/04/2017 Severe protein-calorie malnutrition (HCC) [E43] INVALID FOR* Priority: B Hypoxia [R09.02] INVALID FOR*01/11/2017 Acute hypoxemic respiratory failure (HCC) [J96.*INVALID FOR*12/28/2016 More... Personal history of DVT (deep vein thrombosis) *INVALID FOR*01/11/2017 More... History of heparin-induced thrombocytopenia [Z8*INVALID FOR* Priority: C More... Hospital-acquired pneumonia [J18.9] INVALID FOR*12/28/2016 Priority: B More... Hypoxemia [R09.02] INVALID FOR*01/11/2017 (HFpEF) heart failure with preserved ejection f*INVALID FOR* Priority: C More... Headache [R51] INVALID FOR*01/18/2017 Priority: I More... More... Peripheral neuropathy (HCC) [G62.9] INVALID FOR* Priority: G Joint pain [M25.50] INVALID FOR*01/11/2017 More... Diffuse arthralgia [M25.50] INVALID FOR*01/11/2017 Priority: C More... CKD (chronic kidney disease) stage 3, GFR 30-59*INVALID FOR* Priority: C More... Obesity, Class III, BMI >= 40 (morbid obesity) *INVALID FOR* Priority: F More... Hypertensive emergency [I16.1] INVALID FOR*12/05/2016 More... Acute on chronic diastolic congestive heart ena*INVALID FOR*01/11/2017 More... APS (antiphospholipid syndrome) (HCC) [D68.61] INVALID FOR* Priority: C More... Elevated troponin level [R74.8] INVALID FOR*12/05/2016 More... Hypertensive urgency [I16.0] INVALID FOR*12/05/2016 PNA (pneumonia) [J18.9] INVALID FOR*12/27/2016 Acute respiratory failure with hypoxia (HCC) [J*INVALID FOR*12/27/2016 Clostridium difficile colitis [A04.72] INVALID FOR*12/28/2016 Hemoptysis [R04.2] INVALID FOR*01/20/2017 More... More... Supratherapeutic INR [R79.1] INVALID FOR*04/28/2017 Priority: B More... Cholelithiasis [K80.20] INVALID FOR*01/24/2017 Priority: B More... Ecchymosis of right eye [S05.11XA] INVALID FOR*01/18/2017 Priority: H More... Anticoagulation management encounter [Z51.81, Z*INVALID FOR* Priority: D Acute respiratory failure (HCC) [J96.00] INVALID FOR*02/10/2017 Priority: A More... Pulmonary HTN (HCC) [I27.20] INVALID FOR* Priority: F More... GERD (gastroesophageal reflux disease) [K21.9] INVALID FOR* Priority: E More... RUQ abdominal pain [R10.11] INVALID FOR* Priority: E More... Hemoptysis [R04.2] INVALID FOR*03/11/2017 More... Diarrhea [R19.7] INVALID FOR* Priority: E More... Bacteremia [R78.81] INVALID FOR* Priority: B More... History of HIT (heparin-induced thrombocytopeni*INVALID FOR* More... Recurrent deep vein thrombosis (DVT) (HCC) [I82*INVALID FOR* More... 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 Edema [R60.9] INVALID FOR*08/28/2017 Priority: A More... Flu-like symptoms [R68.89] INVALID FOR*06/10/2017 Hypercoagulable state (HCC) [D68.59] INVALID FOR* Priority: B More... Healthcare maintenance [Z00.00] INVALID FOR* More... Iron deficiency anemia secondary to inadequate *INVALID FOR* Priority: D More... SIRS (systemic inflammatory response syndrome) *INVALID FOR* More... Fever of undetermined origin [R50.9] INVALID FOR*08/25/2017 Red man syndrome [L27.0] INVALID FOR*08/28/2017 More... Sepsis due to Enterococcus (HCC) [A41.81] INVALID FOR* Priority: A Bacteremia due to Staphylococcus epidermidis [R*INVALID FOR* More... Encounter Status:Closed by LISSETH CLAUDIO MD on 09/18/17 HOSP Observed: 09/18/2017 Status: COMPLETED Source: [place] 12:00 AM [facility] REPOSITORY Patient Update ([facility]) PALOMA CANNON ([id number]) 1990 F PTR Date Time Provider Department 09/18/17 ELSA MELLO ([place]) [facility] During your visit today, we recorded the following information about you: Elsa Mello, [place] 09/18/2017 1:57 PM Signed Patient had appointments today at [facility]. I provided a parking pass. Adriana Mello Patient Cable Driller [facility] [phone] / [phone] Allergies As of Date: 09/18/2017 Noted Allergy Reaction RHUBARB 10/24/2013 2 - Rash 4 - Hives HEPARIN 10/24/2013 14 - Other: See Comments Comments: Per patient history of HIT - was on angiomax however then took l fondaparinux for bridging to coumadin. IV CONTRAST (IODINE) 2016 14 - Other: See Comments Comments: shuts kidneys down per patient RITUXIMAB 11/09/2016 14 - Other: See Comments Comments: Elevated cardiac enzymes Date Reviewed: 09/18/2017 Reviewed by: Devi (Rn) JEFF Fernandes - Fully Assessed Reason for Visit: Cancer Patient Support [4087] Prescriptions as of 09/18/2017 Sig: ONDANSETRON HCL 8 MG TABLET Take 1 tablet by mouth every * GABAPENTIN 300 MG CAPSULE Take 600mg in the morning Ta* COMPOUNDED PRESCRIPTION O2 Condenser- whichever is co* CYCLOPHOSPHAMIDE 50 MG CAPSULE Take 3 capsules by mouth once* PREDNISONE 5 MG TABLET Take 1 tablet by mouth once d* WARFARIN 2.5 MG TABLET take by mouth as directed in * AMLODIPINE 5 MG TABLET Take 2 tablets by mouth once * SULFAMETHOXAZOLE 800 MG-TRIME* Take 1 tablet by mouth every * FLUTICASONE 50 MCG/ACTUATION * Use 1 [place] in each nostril o* PANTOPRAZOLE 40 MG TABLET,DEL* Take 1 tablet by mouth DAILY * CETIRIZINE 10 MG TABLET Take 1 tablet by mouth once d* Patient taking differently: Take 10 mg by mouth twice lis* SENNOSIDES 8.6 MG TABLET Take 1 tablet by mouth twice * More... More... Problem List As Of Date 09/18/2017 Noted Resolved Catastrophic Antiphospholipid antibody syndrome*INVALID FOR*01/24/2017 Priority: C More... 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 Severe Gastritis [K29.70] INVALID FOR*01/11/2017 Priority: F More... More... More... More... More... Anasarca [R60.1] INVALID FOR*01/24/2017 Priority: E More... More... More... More... More... More... 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 More... More... More... More... More... More... More... More... Hx pulmonary embolism [Z86.711] INVALID FOR*01/11/2017 Priority: C More... H/O deep vein thrombophlebitis of lower extremi*INVALID FOR*03/12/2015 Priority: C More... More... More... More... More... More... Hemoptysis [R04.2] INVALID FOR*12/27/2016 More... Elevated troponin [R74.8] INVALID FOR*01/11/2017 Pancytopenia (HCC) [D61.818] INVALID FOR* Priority: C More... Thrombocytopenia (HCC) [D69.6] INVALID FOR*01/11/2017 More... SUMMARY INVALID FOR*01/24/2017 Priority: A More... SIRS (systemic inflammatory response syndrome) *INVALID FOR*04/15/2015 Priority: D More... DVT (deep venous thrombosis) (HCC) [I82.409] INVALID FOR*01/11/2017 Priority: D More... Iron deficiency anemia [D50.9] INVALID FOR*01/11/2017 Priority: F More... Productive cough, hemoptysis [R04.2] INVALID FOR*01/04/2017 Priority: B Community acquired pneumonia [J18.9] INVALID FOR*01/11/2017 Respiratory failure with hypoxia (HCC) [J96.91] INVALID FOR*01/11/2017 Priority: B More... SOB (shortness of breath) [R06.02] INVALID FOR*12/28/2016 HTN (hypertension) [I10] INVALID FOR* Priority: E More... CAPRICE (acute kidney injury) (HCC) [N17.9] INVALID FOR* Priority: B More... 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 Hx of gastritis [Z87.19] INVALID FOR*01/11/2017 More... Nausea AND vomiting [R11.2] INVALID FOR*08/28/2017 Priority: B More... 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 Anemia associated with acute blood loss [D62] INVALID FOR*01/11/2017 More... More... Acute on chronic respiratory failure with hypox*INVALID FOR* Priority: A More... Abdominal pain [R10.9] INVALID FOR* Priority: E More... Vomiting [R11.10] INVALID FOR*01/04/2017 Antiphospholipid syndrome (HCC) [D68.61] INVALID FOR*01/04/2017 Severe protein-calorie malnutrition (HCC) [E43] INVALID FOR* Priority: B Hypoxia [R09.02] INVALID FOR*01/11/2017 Acute hypoxemic respiratory failure (HCC) [J96.*INVALID FOR*12/28/2016 More... Personal history of DVT (deep vein thrombosis) *INVALID FOR*01/11/2017 More... History of heparin-induced thrombocytopenia [Z8*INVALID FOR* Priority: C More... Hospital-acquired pneumonia [J18.9] INVALID FOR*12/28/2016 Priority: B More... Hypoxemia [R09.02] INVALID FOR*01/11/2017 (HFpEF) heart failure with preserved ejection f*INVALID FOR* Priority: C More... Headache [R51] INVALID FOR*01/18/2017 Priority: I More... More... Peripheral neuropathy (HCC) [G62.9] INVALID FOR* Priority: G Joint pain [M25.50] INVALID FOR*01/11/2017 More... Diffuse arthralgia [M25.50] INVALID FOR*01/11/2017 Priority: C More... CKD (chronic kidney disease) stage 3, GFR 30-59*INVALID FOR* Priority: C More... Obesity, Class III, BMI >= 40 (morbid obesity) *INVALID FOR* Priority: F More... Hypertensive emergency [I16.1] INVALID FOR*12/05/2016 More... Acute on chronic diastolic congestive heart ena*INVALID FOR*01/11/2017 More... APS (antiphospholipid syndrome) (HCC) [D68.61] INVALID FOR* Priority: C More... Elevated troponin level [R74.8] INVALID FOR*12/05/2016 More... Hypertensive urgency [I16.0] INVALID FOR*12/05/2016 PNA (pneumonia) [J18.9] INVALID FOR*12/27/2016 Acute respiratory failure with hypoxia (HCC) [J*INVALID FOR*12/27/2016 Clostridium difficile colitis [A04.72] INVALID FOR*12/28/2016 Hemoptysis [R04.2] INVALID FOR*01/20/2017 More... More... Supratherapeutic INR [R79.1] INVALID FOR*04/28/2017 Priority: B More... Cholelithiasis [K80.20] INVALID FOR*01/24/2017 Priority: B More... Ecchymosis of right eye [S05.11XA] INVALID FOR*01/18/2017 Priority: H More... Anticoagulation management encounter [Z51.81, Z*INVALID FOR* Priority: D Acute respiratory failure (HCC) [J96.00] INVALID FOR*02/10/2017 Priority: A More... Pulmonary HTN (HCC) [I27.20] INVALID FOR* Priority: F More... GERD (gastroesophageal reflux disease) [K21.9] INVALID FOR* Priority: E More... RUQ abdominal pain [R10.11] INVALID FOR* Priority: E More... Hemoptysis [R04.2] INVALID FOR*03/11/2017 More... Diarrhea [R19.7] INVALID FOR* Priority: E More... Bacteremia [R78.81] INVALID FOR* Priority: B More... History of HIT (heparin-induced thrombocytopeni*INVALID FOR* More... Recurrent deep vein thrombosis (DVT) (HCC) [I82*INVALID FOR* More... 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 Edema [R60.9] INVALID FOR*08/28/2017 Priority: A More... Flu-like symptoms [R68.89] INVALID FOR*06/10/2017 Hypercoagulable state (HCC) [D68.59] INVALID FOR* Priority: B More... Healthcare maintenance [Z00.00] INVALID FOR* More... Iron deficiency anemia secondary to inadequate *INVALID FOR* Priority: D More... SIRS (systemic inflammatory response syndrome) *INVALID FOR* More... Fever of undetermined origin [R50.9] INVALID FOR*08/25/2017 Red man syndrome [L27.0] INVALID FOR*08/28/2017 More... Sepsis due to Enterococcus (HCC) [A41.81] INVALID FOR* Priority: A Bacteremia due to Staphylococcus epidermidis [R*INVALID FOR* More... Encounter Status:Closed by ELSA MELLO on 09/18/17 MARYLU Observed: 09/18/2017 Status: COMPLETED Source: [place] 12:00 AM [facility] REPOSITORY [facility]phone [facility] PALOMA CANNON ([id number]) 1990 F PTR Date Time Provider Department 09/18/17 MAGDALENA PARMAR ([place]) [facility] During your visit today, we recorded the following information about you: Magdalena Lewis CNP, CNP 09/18/2017 4:07 PM Addendum INR today is 1.4. Patient instructed to take coumadin 7.5mg Monday/Monday/Monday and 5mg on . Repeat PT/INR on 09/22. Magdalena Lewis CNP Allergies As of Date: 09/18/2017 Noted Allergy Reaction RHUBARB 10/24/2013 2 - Rash 4 - Hives HEPARIN 10/24/2013 14 - Other: See Comments Comments: Per patient history of HIT - was on angiomax however then took l fondaparinux for bridging to coumadin. IV CONTRAST (IODINE) 2016 14 - Other: See Comments Comments: shuts kidneys down per patient RITUXIMAB 11/09/2016 14 - Other: See Comments Comments: Elevated cardiac enzymes Date Reviewed: 09/18/2017 Reviewed by: Devi (Rn) JEFF Fernandes - Fully Assessed Reason for Visit: Anticoagulation [8] Cmt: INR 1.4 Prescriptions as of 09/18/2017 Sig: ONDANSETRON HCL 8 MG TABLET Take 1 tablet by mouth every * GABAPENTIN 300 MG CAPSULE Take 600mg in the morning Ta* COMPOUNDED PRESCRIPTION O2 Condenser- whichever is co* CYCLOPHOSPHAMIDE 50 MG CAPSULE Take 3 capsules by mouth once* PREDNISONE 5 MG TABLET Take 1 tablet by mouth once d* WARFARIN 2.5 MG TABLET take by mouth as directed in * AMLODIPINE 5 MG TABLET Take 2 tablets by mouth once * SULFAMETHOXAZOLE 800 MG-TRIME* Take 1 tablet by mouth every * FLUTICASONE 50 MCG/ACTUATION * Use 1 [place] in each nostril o* PANTOPRAZOLE 40 MG TABLET,DEL* Take 1 tablet by mouth DAILY * CETIRIZINE 10 MG TABLET Take 1 tablet by mouth once d* Patient taking differently: Take 10 mg by mouth twice lis* SENNOSIDES 8.6 MG TABLET Take 1 tablet by mouth twice * More... More... Problem List As Of Date 09/18/2017 Noted Resolved Catastrophic Antiphospholipid antibody syndrome*INVALID FOR*01/24/2017 Priority: C More... 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 Severe Gastritis [K29.70] INVALID FOR*01/11/2017 Priority: F More... More... More... More... More... Anasarca [R60.1] INVALID FOR*01/24/2017 Priority: E More... More... More... More... More... More... 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 More... More... More... More... More... More... More... More... Hx pulmonary embolism [Z86.711] INVALID FOR*01/11/2017 Priority: C More... H/O deep vein thrombophlebitis of lower extremi*INVALID FOR*03/12/2015 Priority: C More... More... More... More... More... More... Hemoptysis [R04.2] INVALID FOR*12/27/2016 More... Elevated troponin [R74.8] INVALID FOR*01/11/2017 Pancytopenia (HCC) [D61.818] INVALID FOR* Priority: C More... Thrombocytopenia (HCC) [D69.6] INVALID FOR*01/11/2017 More... SUMMARY INVALID FOR*01/24/2017 Priority: A More... SIRS (systemic inflammatory response syndrome) *INVALID FOR*04/15/2015 Priority: D More... DVT (deep venous thrombosis) (HCC) [I82.409] INVALID FOR*01/11/2017 Priority: D More... Iron deficiency anemia [D50.9] INVALID FOR*01/11/2017 Priority: F More... Productive cough, hemoptysis [R04.2] INVALID FOR*01/04/2017 Priority: B Community acquired pneumonia [J18.9] INVALID FOR*01/11/2017 Respiratory failure with hypoxia (HCC) [J96.91] INVALID FOR*01/11/2017 Priority: B More... SOB (shortness of breath) [R06.02] INVALID FOR*12/28/2016 HTN (hypertension) [I10] INVALID FOR* Priority: E More... CAPRICE (acute kidney injury) (HCC) [N17.9] INVALID FOR* Priority: B More... 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 Hx of gastritis [Z87.19] INVALID FOR*01/11/2017 More... Nausea AND vomiting [R11.2] INVALID FOR*08/28/2017 Priority: B More... 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 Anemia associated with acute blood loss [D62] INVALID FOR*01/11/2017 More... More... Acute on chronic respiratory failure with hypox*INVALID FOR* Priority: A More... Abdominal pain [R10.9] INVALID FOR* Priority: E More... Vomiting [R11.10] INVALID FOR*01/04/2017 Antiphospholipid syndrome (HCC) [D68.61] INVALID FOR*01/04/2017 Severe protein-calorie malnutrition (HCC) [E43] INVALID FOR* Priority: B Hypoxia [R09.02] INVALID FOR*01/11/2017 Acute hypoxemic respiratory failure (HCC) [J96.*INVALID FOR*12/28/2016 More... Personal history of DVT (deep vein thrombosis) *INVALID FOR*01/11/2017 More... History of heparin-induced thrombocytopenia [Z8*INVALID FOR* Priority: C More... Hospital-acquired pneumonia [J18.9] INVALID FOR*12/28/2016 Priority: B More... Hypoxemia [R09.02] INVALID FOR*01/11/2017 (HFpEF) heart failure with preserved ejection f*INVALID FOR* Priority: C More... Headache [R51] INVALID FOR*01/18/2017 Priority: I More... More... Peripheral neuropathy (HCC) [G62.9] INVALID FOR* Priority: G Joint pain [M25.50] INVALID FOR*01/11/2017 More... Diffuse arthralgia [M25.50] INVALID FOR*01/11/2017 Priority: C More... CKD (chronic kidney disease) stage 3, GFR 30-59*INVALID FOR* Priority: C More... Obesity, Class III, BMI >= 40 (morbid obesity) *INVALID FOR* Priority: F More... Hypertensive emergency [I16.1] INVALID FOR*12/05/2016 More... Acute on chronic diastolic congestive heart ena*INVALID FOR*01/11/2017 More... APS (antiphospholipid syndrome) (HCC) [D68.61] INVALID FOR* Priority: C More... Elevated troponin level [R74.8] INVALID FOR*12/05/2016 More... Hypertensive urgency [I16.0] INVALID FOR*12/05/2016 PNA (pneumonia) [J18.9] INVALID FOR*12/27/2016 Acute respiratory failure with hypoxia (HCC) [J*INVALID FOR*12/27/2016 Clostridium difficile colitis [A04.72] INVALID FOR*12/28/2016 Hemoptysis [R04.2] INVALID FOR*01/20/2017 More... More... Supratherapeutic INR [R79.1] INVALID FOR*04/28/2017 Priority: B More... Cholelithiasis [K80.20] INVALID FOR*01/24/2017 Priority: B More... Ecchymosis of right eye [S05.11XA] INVALID FOR*01/18/2017 Priority: H More... Anticoagulation management encounter [Z51.81, Z*INVALID FOR* Priority: D Acute respiratory failure (HCC) [J96.00] INVALID FOR*02/10/2017 Priority: A More... Pulmonary HTN (HCC) [I27.20] INVALID FOR* Priority: F More... GERD (gastroesophageal reflux disease) [K21.9] INVALID FOR* Priority: E More... RUQ abdominal pain [R10.11] INVALID FOR* Priority: E More... Hemoptysis [R04.2] INVALID FOR*03/11/2017 More... Diarrhea [R19.7] INVALID FOR* Priority: E More... Bacteremia [R78.81] INVALID FOR* Priority: B More... History of HIT (heparin-induced thrombocytopeni*INVALID FOR* More... Recurrent deep vein thrombosis (DVT) (HCC) [I82*INVALID FOR* More... 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 Edema [R60.9] INVALID FOR*08/28/2017 Priority: A More... Flu-like symptoms [R68.89] INVALID FOR*06/10/2017 Hypercoagulable state (HCC) [D68.59] INVALID FOR* Priority: B More... Healthcare maintenance [Z00.00] INVALID FOR* More... Iron deficiency anemia secondary to inadequate *INVALID FOR* Priority: D More... SIRS (systemic inflammatory response syndrome) *INVALID FOR* More... Fever of undetermined origin [R50.9] INVALID FOR*08/25/2017 Red man syndrome [L27.0] INVALID FOR*08/28/2017 More... Sepsis due to Enterococcus (HCC) [A41.81] INVALID FOR* Priority: A Bacteremia due to Staphylococcus epidermidis [R*INVALID FOR* More... Encounter Status:Closed by MAGDALENA PARMAR CNP on 09/18/17 PROTHROMBIN TIME W/INR Collected: 09/15/2017 Status: F Source: [place] 8:00 AM [facility] REPOSITORY TYPE CODE TESTS RESULT OUT OF RANGE REFERENCE UNITS LAB L300.4150 11.7-14.9 SECONDS High PROTIME 24.5 LAB L300.4200 Normal INR 2.2 Performed By: #### L300.3900 #### [facility] [address] [place], [address] PROGRESS Observed: 09/12/2017 Status: COMPLETED Source: [place] 2:21 PM [facility] REPOSITORY O ID: [id number] Author: Geraldine Linares (Sw) Service: (none) Author Type: Toolmaker Helper Type: Progress Notes Filed: 09/28/2017 10:39 AM Note Text: Erika met with patient to assess service needs in home and community. Patient has interest in therapy dog and in home care assistance. Erika discussed applying to [place] Medicaid Home Care Waiver. Patient signed home care waiver referral form. Waiver could assist with Emergency Response system, home adaptive medical equipment, home delivered meals, and anesthesiologist and critical care to assist with coordinating health care needs. Sw will also research therapy dog request and let patient know how to go about obtaining therapy pet. Patient also reports that she is seeing counselor at [facility]. Sw discussed with patient signing consent through [facility] in order for continuity of care for patient and [facility]. Patient reports that she will sign consent to better discuss patient care. PROGRESS Observed: 09/12/2017 Status: COMPLETED Source: [place] 8:14 AM [facility] REPOSITORY HNO ID: [id number] Author: Akhil Howard Service: (none) Author Type: Nurse Practitioner Type: Progress Notes Filed: 09/12/2017 9:40 AM Note Text: CC: Patient presents with: Recheck: Follow up Hosp, blood Infection HPI Paloma Cannon is a 27 year old female who presents today with for hospital follow up related to MRSE and E Faecalis central line associated blood stream infection and Clostridium difficile colitis. Patient was admitted to [facility] on 08/25 for a 12 day admission. Hospital admission chart reviewed and noted below: The patient initially presented with a fever along with nausea/vomiting and diarrhea. She was found to be positive for C difficile and was started on metronidazole x 14 days. She was initially treated empirically with vancomycin + zosyn until blood cultures came back positive for E faecalis (switched to ampicillin) followed by MRSE (at which point antibiotic therapy was switched to daptomycin). Her samantha and plex catheter were removed and replaced once cultures were > 72 hrs negative. In addition, she was found to be pancytopenic which was new for her to some extent (she had been noted to have had low hemoglobin + platelet levels previously but this time her WBC count was also noted to have been depressed). Hematology-Oncology was consulted for further evaluation of the pancytopenia and recommended to stop the patient's cyclophosphamide (which she was taking for her previous history of Diffuse Alveolar Hemorrhage). She received PLEX therapy on 09/06/17 prior to discharge that day. Since discharge patient reports feeling much better. She is now off daytime oxygen and wearing only 2L at night. Follow up appointment yesterday with peoplesoft taleo manager showing a 75% lung improvement. Complaints today include mild SOB in the morning when she transitions from O2 to room air and increased pain/tingling to bilateral fingers. Denies any numbness or new or worsening weakness of upper extremities. Patient also notes some intermittent depressive spells. Symptoms include depressed mood, fatigue, change in appetite and crying on her bad days. Episodes occurring 2-3 times per week over the past 4 months. Recent stresses in life include personal health conditions, hospitalization and being dependent on others to leave her home. Stating she feels isolated. Other symptoms include intermittent anxious feelings and panic attack x1. The patient denies history of depression and anxiety in the past. Patient indicates that she does not necessarily wish to take additional medications, wishes to explore possible service dog and is agreeable to counseling. Patient also requesting prescription for an O2 condenser for travel and long trips to [facility]. Requiring wheelchair for extended travel. Previous wheelchair was donated to her by a friend and recently broke. Patient is able to ambulate short distances within her home by furniture walking. REVIEW OF SYSTEMS General: no fevers, no chills, no night sweats, no change in appetite and no significant changes in weight HEENT: no frequent or significant headaches, no changes in hearing, no visual changes, no nose bleeds, no sinus or nasal problems Neck: no lumps, no pain and no swelling Respiratory: no cough, no wheezing, no hemoptysis Cardiovascular: no chest pain, no chest pressure and no palpitations GI: Negative for abdominal discomfort, blood in stools or black stools, change in bowel habit, heart burn and Positive for nausea , vomiting : Negative for frequency and incontinence, Positive for dysuria on days that she does not take her water pill Hematologic/Lymph: Negative for prolonged bleeding and bruising easily, Positive for swollen nodes: Neurologic: no headaches, no syncope, no seizures, no dizziness, no memory loss, no confusion, no involuntary movements, Positive for: numbness or tingling of hands which seems to be worsening PAST MEDICAL HISTORY Diagnosis Date - (HFpEF) heart failure with preserved ejection fraction (HCC) 02/20/2016 HFpEF w last EF 50-55% On Torsemide, coreg, hydralazine and imdur at home No signs of acute exacerbation on admission Plan: -Continue home medications - Anasarca 11/29/2013 - Anemia 03/10/2015 Chronic microcytic anemia. 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 Thrombosis, and Diffuse Alveolar Hemorrhage. On Warfarin and PLEX (Twice Weekly)? Plan: -Warfarin 5mg qday-holding for planned EGD on 01/11 d/t supra therapeutic INR -Cont. PO Prednisone 10mg MWFS and 5mg TTS -Pantoprazole for GI PPx of Above -Apharesis was supposed to be yesterday, will contact plasmapheresis team on recommendations - Antiphospholipid syndrome (HCC) - Catastrophic Antiphospholipid antibody syndrome 11/09/2013 - Cholelithiasis 01/11/2017 Likely cause of recent pancreatitis. Plan: Per general surgery, no acute surgical intervention at this time. Will await results of EGD. If active gastritis, favor outpatient cholecystectomy. If no active gastritis on EGD, plan for cholecystectomy this admission. 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 - PAST SURGICAL HISTORY OF Adenoidectomy - PICC LINE INSERT/CONSULT 11/29/2013 - PICC LINE INSERT/CONSULT 03/10/2015 - PICC LINE INSERT/CONSULT 02/20/2016 ALLERGIES Rhubarb; Heparin; Iv Contrast [Iodine]; Rituximab MEDICATIONS cyclophosphamide (CYTOXAN) 50 mg capsule Take 3 capsules by mouth once daily. predniSONE (DELTASONE) 5 mg tablet Take 1 tablet by mouth once daily. warfarin (COUMADIN) 2.5 mg tablet take by mouth as directed in the evening to keep INR between 2.0-3.0 amLODIPine (NORVASC) 5 mg tablet Take 2 tablets by mouth once daily. HOLD FOR SBP <120 sulfamethoxazole-trimethoprim (BACTRIM DS) 800-160 mg per tablet Take 1 tablet by mouth every Monday,Monday,Monday. gabapentin (NEURONTIN) 300 mg capsule Please take gabapentin 200 mg three times daily for 3 days.If you tolerate it, increase to 300 mg three times a day for 3 days.If you tolerate it, increase to 600 mg at bedtime and 300 mg daytime for 3 days.If you tolerate it, increase to 600 mg three times a day for 3 days.If you tolerate it, increase to 900 mg at bedtime and 600 mg daytime for 3 days.If you tolerate it, increase to 900 mg three times a day for 3 days. fluticasone (FLONASE) 50 mcg/actuation nasal spray Use 1 [place] in each nostril once daily. pantoprazole DR (PROTONIX) 40 mg tablet Take 1 tablet by mouth DAILY (6 AM). cetirizine 10 mg tablet Take 1 tablet by mouth once daily. senna 8.6 mg tab Take 1 tablet by mouth twice daily as needed. FAMILY HISTORY Problem Relation Age of Onset - Breast Cancer Mother spine BRCA neg - Ovarian cyst [OTHER] Mother - ovarian cyst [OTHER] Sister - Thyroid No Family History Social History Substance Use Topics - Smoking status: Never Smoker - Smokeless tobacco: Never Used - Alcohol use No PHYSICAL EXAM BP 132/80 Pulse 94 Temp 36.9 ?C (98.4 ?F) (Temporal Artery) Resp 16 Wt 96.6 kg (213 lb) SpO2 95% BMI 37.73 kg/m2 General Appearance: well appearing, in no acute distress, alert Pysch: mood and affect broad and appropriate Skin: Mildly pale positive: edema and dry skin to BLE Head: normocephalic, atraumatic Eyes: conjunctiva pink and moist, no icterus, sclera white, non-injected Lungs: Lungs clear to auscultation. No wheezing, rhonchi, rales Heart: RRR without murmur, gallop, or rubs. No ectopy Bilateral Lower Extremities: Pulses: 2+, Edema: Non pitting, Negative findings: No deformities present, No erythema, induration, or nodules Neurological: Negative findings: R handed., speech normal, mental status intact, cranial nerves 2-12 intact, Positive findings: muscular weakness BLE with gait instability TETANUS due on 01/14/2000 TWO PNEUMOVAX 5 YEARS APART PRIOR TO AGE 65(1) due on 01/14/2008 PAP EVERY 3 YEARS (21-30 YEAR OLDS) due on 08/04/2018 ADULT PREVNAR-13 Completed INFLUENZA Completed ASSESSMENT/PLAN: 1. Depression, unspecified depression type - ICD9: 311, ICD10: F32.9 (primary diagnosis) - No concerns for SI/HI. No other concerning symptom history or exam findings. - Patient declined starting SSRI at this time. - Patient to pursue counseling- locations and service handout provided - Patient met with social work to discuss in home services, assistance and to investigate service animal - Follow up as scheduled in 2 months 2. Peripheral polyneuropathy (HCC) - ICD9: 356.9, ICD10: G62.9 - Increased gabapentin to 600mg in the morning, 300mg in the afternoon and evening will titrate up if necessary - GABAPENTIN 300 MG CAPSULE - Follow up as scheduled in 2 months 3. Chemotherapy induced nausea and vomiting - ICD9: 787.01, E933.1, ICD10: R11.2, T45.1X5A - ONDANSETRON HCL 8 MG TABLET - Follow up as scheduled in 2 months 4. Acute on chronic respiratory failure with hypoxia (HCC) - ICD9: 518.84, 799.02, ICD10: J96.21 - Stable, managed by Pulmonology. Last visit yesterday, 09/11/17 - COMPOUNDED PRESCRIPTION- O2 condenser - STANDARD WHEELCHAIR - Follow up as scheduled in 2 months 5. Pulmonary HTN - ICD9: 416.8, ICD10: I27.20 - Stable. Last visit pulmonology 1 day ago, 09/11/17 - COMPOUNDED PRESCRIPTION - STANDARD WHEELCHAIR - Follow up as scheduled in 2 months 6. SIRS (systemic inflammatory response syndrome) (HCC) - ICD9: 995.90, ICD10: R65.10 - Stable. Currently undergoing chemo treatment expected treatments to continue 3 additional months. Managed by oncology/hematology at [facility] - COMPOUNDED PRESCRIPTION- O2 condenser - STANDARD WHEELCHAIR - Follow up as scheduled in 2 months quill worker, Geraldine Linares, Met with patient and to discuss out patient resources and to investigate service dog/animal for depressive symptoms. Prescription instructions reviewed with patient as applicable. Potential red flag symptoms discussed with the patient. Reviewed appropriate action plan to take if red flag symptoms occur. Patient agreeable to treatment plan. Akhil Howard CNP CNOV Observed: 09/12/2017 Status: COMPLETED Source: [place] 8:00 AM [facility] REPOSITORY Office Visit (INTMWS) PALOMA CANNON ([id number]) 1990 F [facility] Date Time Provider Department 09/12/17 8:00 AM AKHIL HOWARD (ELLIOTT) INTMWS During your visit today, we recorded the following information about you: Temperature Pulse Respiration Blood pressure 98.4 degrees 94/minute 16/minute 132/80 Weight 96.6 kg Akhil Howard CNP 09/12/2017 9:40 AM Signed CC: Patient presents with: Recheck: Follow up Hosp, blood Infection HPI Paloma Cannon is a 27 year old female who presents today with for hospital follow up related to MRSE and E Faecalis central line associated blood stream infection and Clostridium difficile colitis. Patient was admitted to [facility] on 08/25 for a 12 day admission. Hospital admission chart reviewed and noted below: The patient initially presented with a fever along with nausea/vomiting and diarrhea. She was found to be positive for C difficile and was started on metronidazole x 14 days. She was initially treated empirically with vancomycin + zosyn until blood cultures came back positive for E faecalis (switched to ampicillin) followed by MALICK (at which point antibiotic therapy was switched to daptomycin). Her samantha and plex catheter were removed and replaced once cultures were ANDgt; 72 hrs negative. In addition, she was found to be pancytopenic which was new for her to some extent (she had been noted to have had low hemoglobin + platelet levels previously but this time her WBC count was also noted to have been depressed). Hematology-Oncology was consulted for further evaluation of the pancytopenia and recommended to stop the patient's cyclophosphamide (which she was taking for her previous history of Diffuse Alveolar Hemorrhage). She received PLEX therapy on 09/06/17 prior to discharge that day. Since discharge patient reports feeling much better. She is now off daytime oxygen and wearing only 2L at night. Follow up appointment yesterday with peoplesoft taleo manager showing a 75% lung improvement. Complaints today include mild SOB in the morning when she transitions from O2 to room air and increased pain/tingling to bilateral fingers. Denies any numbness or new or worsening weakness of upper extremities. Patient also notes some intermittent depressive spells. Symptoms include depressed mood, fatigue, change in appetite and crying on her bad days. Episodes occurring 2-3 times per week over the past 4 months. Recent stresses in life include personal health conditions, hospitalization and being dependent on others to leave her home. Stating she feels ANDquot;isolatedANDquot;. Other symptoms include intermittent anxious feelings and panic attack x1. The patient denies history of depression and anxiety in the past. Patient indicates that she does not necessarily wish to take additional medications, wishes to explore possible service dog and is agreeable to counseling. Patient also requesting prescription for an O2 condenser for travel and long trips to [facility]. Requiring wheelchair for extended travel. Previous wheelchair was donated to her by a friend and recently broke. Patient is able to ambulate short distances within her home by furniture walking. REVIEW OF SYSTEMS General: no fevers, no chills, no night sweats, no change in appetite and no significant changes in weight HEENT: no frequent or significant headaches, no changes in hearing, no visual changes, no nose bleeds, no sinus or nasal problems Neck: no lumps, no pain and no swelling Respiratory: no cough, no wheezing, no hemoptysis Cardiovascular: no chest pain, no chest pressure and no palpitations GI: Negative for abdominal discomfort, blood in stools or black stools, change in bowel habit, heart burn and Positive for nausea , vomiting : Negative for frequency and incontinence, Positive for dysuria on days that she does not take her water pill Hematologic/Lymph: Negative for prolonged bleeding and bruising easily, Positive for swollen nodes: Neurologic: no headaches, no syncope, no seizures, no dizziness, no memory loss, no confusion, no involuntary movements, Positive for: numbness or tingling of hands which seems to be worsening PAST MEDICAL HISTORY Diagnosis Date - (HFpEF) heart failure with preserved ejection fraction (HCC) 02/20/2016 HFpEF w last EF 50-55% On Torsemide, coreg, hydralazine and imdur at home No signs of acute exacerbation on admission Plan: -Continue home medications - Anasarca 11/29/2013 - Anemia 03/10/2015 Chronic microcytic anemia. 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 Thrombosis, and Diffuse Alveolar Hemorrhage. On Warfarin and PLEX (Twice Weekly)? Plan: -Warfarin 5mg qday-holding for planned EGD on 01/11 d/t supra therapeutic INR -Cont. PO Prednisone 10mg MWFS and 5mg TTS -Pantoprazole for GI PPx of Above -Apharesis was supposed to be yesterday, will contact plasmapheresis team on recommendations - Antiphospholipid syndrome (HCC) - Catastrophic Antiphospholipid antibody syndrome 11/09/2013 - Cholelithiasis 01/11/2017 Likely cause of recent pancreatitis. Plan: Per general surgery, no acute surgical intervention at this time. Will await results of EGD. If active gastritis, favor outpatient cholecystectomy. If no active gastritis on EGD, plan for cholecystectomy this admission. - CKD (chronic kidney disease) stage 3, GFR 30-59 ml/min 07/06/2016 Baseline SCr 1.5-1.7 Plan: -renally dose medications -avoid nephrotoxic agents - DVT (deep venous thrombosis) (HCC) - Elevated CA-125 11/30/2013 244 - Essential hypertension 10/08/2015 Stable on home medications Plan: -continue to monitor on home meds - 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 Bivalirudin to Warfarin bridging - HIT (heparin-induced thrombocytopenia) (HCC) - Nontoxic multinodular goiter - Obese - Obesity, Class III, BMI ANDgt;= 40 (morbid obesity) E66.01 10/18/2016 - Peripheral neuropathy 04/14/2016 - Severe protein-calorie malnutrition (HCC) 12/29/2015 PAST SURGICAL HISTORY Procedure Laterality Date - PAST SURGICAL HISTORY OF 2012 IVC thrombectomy - PAST SURGICAL HISTORY OF 2012 b/l iliac v. 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 - PAST SURGICAL HISTORY OF Adenoidectomy - PICC LINE INSERT/CONSULT 11/29/2013 - PICC LINE INSERT/CONSULT 03/10/2015 - PICC LINE INSERT/CONSULT 02/20/2016 ALLERGIES Rhubarb; Heparin; Iv Contrast [Iodine]; Rituximab MEDICATIONS cyclophosphamide (CYTOXAN) 50 mg capsule Take 3 capsules by mouth once daily. predniSONE (DELTASONE) 5 mg tablet Take 1 tablet by mouth once daily. warfarin (COUMADIN) 2.5 mg tablet take by mouth as directed in the evening to keep INR between 2.0-3.0 amLODIPine (NORVASC) 5 mg tablet Take 2 tablets by mouth once daily. HOLD FOR SBP ANDlt;120 sulfamethoxazole-trimethoprim (BACTRIM DS) 800-160 mg per tablet Take 1 tablet by mouth every Monday,Monday,Monday. gabapentin (NEURONTIN) 300 mg capsule Please take gabapentin 200 mg three times daily for 3 days.If you tolerate it, increase to 300 mg three times a day for 3 days.If you tolerate it, increase to 600 mg at bedtime and 300 mg daytime for 3 days.If you tolerate it, increase to 600 mg three times a day for 3 days.If you tolerate it, increase to 900 mg at bedtime and 600 mg daytime for 3 days.If you tolerate it, increase to 900 mg three times a day for 3 days. fluticasone (FLONASE) 50 mcg/actuation nasal spray Use 1 [place] in each nostril once daily. pantoprazole DR (PROTONIX) 40 mg tablet Take 1 tablet by mouth DAILY (6 AM). cetirizine 10 mg tablet Take 1 tablet by mouth once daily. senna 8.6 mg tab Take 1 tablet by mouth twice daily as needed. FAMILY HISTORY Problem Relation Age of Onset - Breast Cancer Mother spine BRCA neg - Ovarian cyst [OTHER] Mother - ovarian cyst [OTHER] Sister - Thyroid No Family History Social History Substance Use Topics - Smoking status: Never Smoker - Smokeless tobacco: Never Used - Alcohol use No PHYSICAL EXAM BP 132/80 Pulse 94 Temp 36.9 ?C (98.4 ?F) (Temporal Artery) Resp 16 Wt 96.6 kg (213 lb) SpO2 95% BMI 37.73 kg/m2 General Appearance: well appearing, in no acute distress, alert Pysch: mood and affect broad and appropriate Skin: Mildly pale positive: edema and dry skin to BLE Head: normocephalic, atraumatic Eyes: conjunctiva pink and moist, no icterus, sclera white, non-injected Lungs: Lungs clear to auscultation. No wheezing, rhonchi, rales Heart: RRR without murmur, gallop, or rubs. No ectopy Bilateral Lower Extremities: Pulses: 2+, Edema: Non pitting, Negative findings: No deformities present, No erythema, induration, or nodules Neurological: Negative findings: R handed., speech normal, mental status intact, cranial nerves 2-12 intact, Positive findings: muscular weakness BLE with gait instability TETANUS due on 01/14/2000 TWO PNEUMOVAX 5 YEARS APART PRIOR TO AGE 65(1) due on 01/14/2008 PAP EVERY 3 YEARS (21-30 YEAR OLDS) due on 08/04/2018 ADULT PREVNAR-13 Completed INFLUENZA Completed ASSESSMENT/PLAN: 1. Depression, unspecified depression type - ICD9: 311, ICD10: F32.9 (primary diagnosis) - No concerns for SI/HI. No other concerning symptom history or exam findings. - Patient declined starting SSRI at this time. - Patient to pursue counseling- locations and service handout provided - Patient met with social work to discuss in home services, assistance and to investigate service animal - Follow up as scheduled in 2 months 2. Peripheral polyneuropathy (HCC) - ICD9: 356.9, ICD10: G62.9 - Increased gabapentin to 600mg in the morning, 300mg in the afternoon and evening will titrate up if necessary - GABAPENTIN 300 MG CAPSULE - Follow up as scheduled in 2 months 3. Chemotherapy induced nausea and vomiting - ICD9: 787.01, E933.1, ICD10: R11.2, T45.1X5A - ONDANSETRON HCL 8 MG TABLET - Follow up as scheduled in 2 months 4. Acute on chronic respiratory failure with hypoxia (HCC) - ICD9: 518.84, 799.02, ICD10: J96.21 - Stable, managed by Pulmonology. Last visit yesterday, 09/11/17 - COMPOUNDED PRESCRIPTION- O2 condenser - STANDARD WHEELCHAIR - Follow up as scheduled in 2 months 5. Pulmonary HTN - ICD9: 416.8, ICD10: I27.20 - Stable. Last visit pulmonology 1 day ago, 09/11/17 - COMPOUNDED PRESCRIPTION - STANDARD WHEELCHAIR - Follow up as scheduled in 2 months 6. SIRS (systemic inflammatory response syndrome) (HCC) - ICD9: 995.90, ICD10: R65.10 - Stable. Currently undergoing chemo treatment expected treatments to continue 3 additional months. Managed by oncology/hematology at [facility] main - COMPOUNDED PRESCRIPTION- O2 condenser - STANDARD WHEELCHAIR - Follow up as scheduled in 2 months quill worker, Geraldine Linares, Met with patient and to discuss out patient resources and to investigate service dog/animal for depressive symptoms. Prescription instructions reviewed with patient as applicable. Potential red flag symptoms discussed with the patient. Reviewed appropriate action plan to take if red flag symptoms occur. Patient agreeable to treatment plan. ELLIOTT Plata CNP 09/12/2017 8:48 AM Signed Start taking Neurontin 600mg in the AM and 300mg in the afternoon and 300mg in the evening Referring Provider: SELF [200] Allergies As of Date: 09/12/2017 Noted Allergy Reaction RHUBARB 10/24/2013 2 - Rash 4 - Hives HEPARIN 10/24/2013 14 - Other: See Comments Comments: Per patient history of HIT - was on angiomax however then took l fondaparinux for bridging to coumadin. IV CONTRAST (IODINE) 2016 14 - Other: See Comments Comments: shuts kidneys down per patient RITUXIMAB 11/09/2016 14 - Other: See Comments Comments: Elevated cardiac enzymes Date Reviewed: 09/12/2017 Reviewed by: Lisa Aguilar Ma - Fully Assessed Reason for Visit: Recheck [92] Cmt: Follow up Hosp, blood Infection Primary Visit Diagnosis:Depression, unspecified depression type [F32.9] Other Visit Diagnoses:Peripheral polyneuropathy (HCC) [G62.9] Chemotherapy induced nausea and vomiting [R11.2, T45.1X5A] Acute on chronic respiratory failure with hypoxia (HCC) [J96.21] Pulmonary HTN [I27.20] SIRS (systemic inflammatory response syndrome) (HCC) [R65.10] Order(s):ondansetron (ZOFRAN, HYDROCHLORIDE,) 8 mg tabletTake 1 tablet by mouth every 12 hours as needed for Nausea/Vomiting.Disp: 40 tabletRfl: 3 STANDARD WHEELCHAIR [[id number]] Order #: [id number] gabapentin (NEURONTIN) 300 mg capsuleTake 600mg in the morning Take 300 mg in the afternoon Take 300mg in the eveningDisp: 360 capsuleRfl: 3 COMPOUNDED PRESCRIPTIONO2 Condenser- whichever is covered by patient's insurance Acute on chronic respiratory failure with hypoxia (HCC) ?- Primary J96.21 Pulmonary HTN I27.20 SIRS (systemic inflammatory response syndrome) (HCC) R65.10Disp: 1 EachRfl: 0 Prescriptions as of 09/12/2017 Sig: ONDANSETRON HCL 8 MG TABLET Take 1 tablet by mouth every * GABAPENTIN 300 MG CAPSULE Take 600mg in the morning Ta* COMPOUNDED PRESCRIPTION O2 Condenser- whichever is co* CYCLOPHOSPHAMIDE 50 MG CAPSULE Take 3 capsules by mouth once* PREDNISONE 5 MG TABLET Take 1 tablet by mouth once d* WARFARIN 2.5 MG TABLET take by mouth as directed in * AMLODIPINE 5 MG TABLET Take 2 tablets by mouth once * SULFAMETHOXAZOLE 800 MG-TRIME* Take 1 tablet by mouth every * FLUTICASONE 50 MCG/ACTUATION * Use 1 [place] in each nostril o* PANTOPRAZOLE 40 MG TABLET,DEL* Take 1 tablet by mouth DAILY * CETIRIZINE 10 MG TABLET Take 1 tablet by mouth once d* Patient taking differently: Take 10 mg by mouth twice lis* SENNOSIDES 8.6 MG TABLET Take 1 tablet by mouth twice * More... More... Problem List As Of Date 09/12/2017 Noted Resolved Catastrophic Antiphospholipid antibody syndrome*INVALID FOR*01/24/2017 Priority: C More... 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 Severe Gastritis [K29.70] INVALID FOR*01/11/2017 Priority: F More... More... More... More... More... Anasarca [R60.1] INVALID FOR*01/24/2017 Priority: E More... More... More... More... More... More... 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 More... More... More... More... More... More... More... More... Hx pulmonary embolism [Z86.711] INVALID FOR*01/11/2017 Priority: C More... H/O deep vein thrombophlebitis of lower extremi*INVALID FOR*03/12/2015 Priority: C More... More... More... More... More... More... Hemoptysis [R04.2] INVALID FOR*12/27/2016 More... Elevated troponin [R74.8] INVALID FOR*01/11/2017 Pancytopenia (HCC) [D61.818] INVALID FOR* Priority: C More... Thrombocytopenia (HCC) [D69.6] INVALID FOR*01/11/2017 More... SUMMARY INVALID FOR*01/24/2017 Priority: A More... SIRS (systemic inflammatory response syndrome) *INVALID FOR*04/15/2015 Priority: D More... DVT (deep venous thrombosis) (HCC) [I82.409] INVALID FOR*01/11/2017 Priority: D More... Iron deficiency anemia [D50.9] INVALID FOR*01/11/2017 Priority: F More... Productive cough, hemoptysis [R04.2] INVALID FOR*01/04/2017 Priority: B Community acquired pneumonia [J18.9] INVALID FOR*01/11/2017 Respiratory failure with hypoxia (HCC) [J96.91] INVALID FOR*01/11/2017 Priority: B More... SOB (shortness of breath) [R06.02] INVALID FOR*12/28/2016 HTN (hypertension) [I10] INVALID FOR* Priority: E More... CAPRICE (acute kidney injury) (HCC) [N17.9] INVALID FOR* Priority: B More... 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 Hx of gastritis [Z87.19] INVALID FOR*01/11/2017 More... Nausea AND vomiting [R11.2] INVALID FOR*08/28/2017 Priority: B More... 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 Anemia associated with acute blood loss [D62] INVALID FOR*01/11/2017 More... More... Acute on chronic respiratory failure with hypox*INVALID FOR* Priority: A More... Abdominal pain [R10.9] INVALID FOR* Priority: E More... Vomiting [R11.10] INVALID FOR*01/04/2017 Antiphospholipid syndrome (HCC) [D68.61] INVALID FOR*01/04/2017 Severe protein-calorie malnutrition (HCC) [E43] INVALID FOR* Priority: B Hypoxia [R09.02] INVALID FOR*01/11/2017 Acute hypoxemic respiratory failure (HCC) [J96.*INVALID FOR*12/28/2016 More... Personal history of DVT (deep vein thrombosis) *INVALID FOR*01/11/2017 More... History of heparin-induced thrombocytopenia [Z8*INVALID FOR* Priority: C More... Hospital-acquired pneumonia [J18.9] INVALID FOR*12/28/2016 Priority: B More... Hypoxemia [R09.02] INVALID FOR*01/11/2017 (HFpEF) heart failure with preserved ejection f*INVALID FOR* Priority: C More... Headache [R51] INVALID FOR*01/18/2017 Priority: I More... More... Peripheral neuropathy (HCC) [G62.9] INVALID FOR* Priority: G Joint pain [M25.50] INVALID FOR*01/11/2017 More... Diffuse arthralgia [M25.50] INVALID FOR*01/11/2017 Priority: C More... CKD (chronic kidney disease) stage 3, GFR 30-59*INVALID FOR* Priority: C More... Obesity, Class III, BMI >= 40 (morbid obesity) *INVALID FOR* Priority: F More... Hypertensive emergency [I16.1] INVALID FOR*12/05/2016 More... Acute on chronic diastolic congestive heart ena*INVALID FOR*01/11/2017 More... APS (antiphospholipid syndrome) (HCC) [D68.61] INVALID FOR* Priority: C More... Elevated troponin level [R74.8] INVALID FOR*12/05/2016 More... Hypertensive urgency [I16.0] INVALID FOR*12/05/2016 PNA (pneumonia) [J18.9] INVALID FOR*12/27/2016 Acute respiratory failure with hypoxia (HCC) [J*INVALID FOR*12/27/2016 Clostridium difficile colitis [A04.72] INVALID FOR*12/28/2016 Hemoptysis [R04.2] INVALID FOR*01/20/2017 More... More... Supratherapeutic INR [R79.1] INVALID FOR*04/28/2017 Priority: B More... Cholelithiasis [K80.20] INVALID FOR*01/24/2017 Priority: B More... Ecchymosis of right eye [S05.11XA] INVALID FOR*01/18/2017 Priority: H More... Anticoagulation management encounter [Z51.81, Z*INVALID FOR* Priority: D Acute respiratory failure (HCC) [J96.00] INVALID FOR*02/10/2017 Priority: A More... Pulmonary HTN (HCC) [I27.20] INVALID FOR* Priority: F More... GERD (gastroesophageal reflux disease) [K21.9] INVALID FOR* Priority: E More... RUQ abdominal pain [R10.11] INVALID FOR* Priority: E More... Hemoptysis [R04.2] INVALID FOR*03/11/2017 More... Diarrhea [R19.7] INVALID FOR* Priority: E More... Bacteremia [R78.81] INVALID FOR* Priority: B More... History of HIT (heparin-induced thrombocytopeni*INVALID FOR* More... Recurrent deep vein thrombosis (DVT) (HCC) [I82*INVALID FOR* More... 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 Edema [R60.9] INVALID FOR*08/28/2017 Priority: A More... Flu-like symptoms [R68.89] INVALID FOR*06/10/2017 Hypercoagulable state (HCC) [D68.59] INVALID FOR* Priority: B More... Healthcare maintenance [Z00.00] INVALID FOR* More... Iron deficiency anemia secondary to inadequate *INVALID FOR* Priority: D More... SIRS (systemic inflammatory response syndrome) *INVALID FOR* More... Fever of undetermined origin [R50.9] INVALID FOR*08/25/2017 Red man syndrome [L27.0] INVALID FOR*08/28/2017 More... Sepsis due to Enterococcus (HCC) [A41.81] INVALID FOR* Priority: A Bacteremia due to Staphylococcus epidermidis [R*INVALID FOR* More... Other instructions from your clinician: Start taking Neurontin 600mg in the AM and 300mg in the afternoon and 300mg in the evening Prescriptions ordered this encounter Disp Refills Start End COMPOUNDED PRESCRIPTION 1 Ea* 0 09/12/2017 09/12/2017 Class: Print RX Cmt: O2 Condenser- whichever the patient's insurance will cover Route: OTHER Si Each as needed. ONDANSETRON HCL 8 MG TABLET 40 t* 3 09/12/2017 09/12/2018 Route: ORAL Sig: Take 1 tablet by mouth every 12 hours as needed for Nausea/Vomiting. GABAPENTIN 300 MG CAPSULE 360 * 3 09/12/2017 12/13/2017 Class: Med Update Sig: Take 600mg in the morning Take 300 mg in the afternoon Take 300mg in the evening COMPOUNDED PRESCRIPTION 1 Ea* 0 09/12/2017 09/12/2017 Class: Print RX Sig: O2 condenser- whichever is covered by patient insurance COMPOUNDED PRESCRIPTION 1 Ea* 0 09/12/2017 Class: Print RX Sig: O2 Condenser- whichever is covered by patient's insurance Acute on chronic respiratory failure with hypoxia (HCC) ?- Primary J96.21 Pulmonary HTN I27.20 SIRS (systemic inflammatory response syndrome) (HCC) R65.10 Medications Discontinued During This Encounter gabapentin 300 mg capsule 30 c* 0 02/25/2014 09/12/2017 Class: Print RX Route: ORAL Sig: Take 1 capsule by mouth daily at bedtime for 30 days. Disc: Reason for discontinue is not on file. gabapentin (NEURONTIN) 300 mg capsule 360 * 3 02/10/2017 09/12/2017 Class: Print RX Sig: Please take gabapentin 200 mg three times daily for 3 days. If you tolerate it, increase to 300 mg three times a day for 3 days. If you tolerate it, increase to 600 mg at bedtime and 300 mg daytime for 3 days. If you tolerate it, increase to 600 mg three times a day for 3 days. If you tolerate it, increase to 900 mg at bedtime and 600 mg daytime for 3 days. If you tolerate it, increase to 900 mg three times a day for 3 days. Patient taking differently: 300 mg three times daily. Disc: Reason for discontinue is not on file. COMPOUNDED PRESCRIPTION 1 Ea* 0 09/12/2017 09/12/2017 Class: Print RX Cmt: O2 Condenser- whichever the patient's insurance will cover Route: OTHER Si Each as needed. Disc: Reason for discontinue is not on file. COMPOUNDED PRESCRIPTION 1 Ea* 0 09/12/2017 09/12/2017 Class: Print RX Sig: O2 condenser- whichever is covered by patient insurance Disc: Reason for discontinue is not on file. Encounter Status:Closed by AKHIL HOWARD CNP on 09/12/17 CNSW Observed: 09/12/2017 Status: COMPLETED Source: [place] 12:00 AM [facility] [employer] ([facility]) [place]OMA CANNON ([id number]) 1990 F PTR Date Time Provider Department 09/12/17 GERALDINE LINARES) AWILDA During your visit today, we recorded the following information about you: Geraldine Linares, JAKE 09/28/2017 10:39 AM Signed Erika met with patient to assess service needs in home and community. Patient has interest in therapy dog and in home care assistance. Erika discussed applying to [place] Medicaid Home Care Waiver. Patient signed home care waiver referral form. Waiver could assist with Emergency Response system, home adaptive medical equipment, home delivered meals, and anesthesiologist and critical care to assist with coordinating health care needs. Erika will also research therapy dog request and let patient know how to go about obtaining therapy pet. Patient also reports that she is seeing counselor at [facility]. Erika discussed with patient signing consent through [facility] in order for continuity of care for patient and [facility]. Patient reports that she will sign consent to better discuss patient care. Allergies As of Date: 09/12/2017 Noted Allergy Reaction RHUBARB 10/24/2013 2 - Rash 4 - Hives HEPARIN 10/24/2013 14 - Other: See Comments Comments: Per patient history of HIT - was on angiomax however then took l fondaparinux for bridging to coumadin. IV CONTRAST (IODINE) 2016 14 - Other: See Comments Comments: shuts kidneys down per patient RITUXIMAB 11/09/2016 14 - Other: See Comments Comments: Elevated cardiac enzymes Date Reviewed: 09/12/2017 Reviewed by: Lisa Aguilar Ma - Fully Assessed Prescriptions as of 09/12/2017 Sig: ONDANSETRON HCL 8 MG TABLET Take 1 tablet by mouth every * GABAPENTIN 300 MG CAPSULE Take 600mg in the morning Ta* COMPOUNDED PRESCRIPTION O2 Condenser- whichever is co* CYCLOPHOSPHAMIDE 50 MG CAPSULE Take 3 capsules by mouth once* PREDNISONE 5 MG TABLET Take 1 tablet by mouth once d* WARFARIN 2.5 MG TABLET take by mouth as directed in * AMLODIPINE 5 MG TABLET Take 2 tablets by mouth once * SULFAMETHOXAZOLE 800 MG-TRIME* Take 1 tablet by mouth every * FLUTICASONE 50 MCG/ACTUATION * Use 1 [place] in each nostril o* PANTOPRAZOLE 40 MG TABLET,DEL* Take 1 tablet by mouth DAILY * CETIRIZINE 10 MG TABLET Take 1 tablet by mouth once d* Patient taking differently: Take 10 mg by mouth twice lis* SENNOSIDES 8.6 MG TABLET Take 1 tablet by mouth twice * More... More... Problem List As Of Date 09/12/2017 Noted Resolved Catastrophic Antiphospholipid antibody syndrome*INVALID FOR*01/24/2017 Priority: C More... 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 Severe Gastritis [K29.70] INVALID FOR*01/11/2017 Priority: F More... More... More... More... More... Anasarca [R60.1] INVALID FOR*01/24/2017 Priority: E More... More... More... More... More... More... 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 More... More... More... More... More... More... More... More... Hx pulmonary embolism [Z86.711] INVALID FOR*01/11/2017 Priority: C More... H/O deep vein thrombophlebitis of lower extremi*INVALID FOR*03/12/2015 Priority: C More... More... More... More... More... More... Hemoptysis [R04.2] INVALID FOR*12/27/2016 More... Elevated troponin [R74.8] INVALID FOR*01/11/2017 Pancytopenia (HCC) [D61.818] INVALID FOR* Priority: C More... Thrombocytopenia (HCC) [D69.6] INVALID FOR*01/11/2017 More... SUMMARY INVALID FOR*01/24/2017 Priority: A More... SIRS (systemic inflammatory response syndrome) *INVALID FOR*04/15/2015 Priority: D More... DVT (deep venous thrombosis) (HCC) [I82.409] INVALID FOR*01/11/2017 Priority: D More... Iron deficiency anemia [D50.9] INVALID FOR*01/11/2017 Priority: F More... Productive cough, hemoptysis [R04.2] INVALID FOR*01/04/2017 Priority: B Community acquired pneumonia [J18.9] INVALID FOR*01/11/2017 Respiratory failure with hypoxia (HCC) [J96.91] INVALID FOR*01/11/2017 Priority: B More... SOB (shortness of breath) [R06.02] INVALID FOR*12/28/2016 HTN (hypertension) [I10] INVALID FOR* Priority: E More... CAPRICE (acute kidney injury) (HCC) [N17.9] INVALID FOR* Priority: B More... 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 Hx of gastritis [Z87.19] INVALID FOR*01/11/2017 More... Nausea AND vomiting [R11.2] INVALID FOR*08/28/2017 Priority: B More... 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 Anemia associated with acute blood loss [D62] INVALID FOR*01/11/2017 More... More... Acute on chronic respiratory failure with hypox*INVALID FOR* Priority: A More... Abdominal pain [R10.9] INVALID FOR* Priority: E More... Vomiting [R11.10] INVALID FOR*01/04/2017 Antiphospholipid syndrome (HCC) [D68.61] INVALID FOR*01/04/2017 Severe protein-calorie malnutrition (HCC) [E43] INVALID FOR* Priority: B Hypoxia [R09.02] INVALID FOR*01/11/2017 Acute hypoxemic respiratory failure (HCC) [J96.*INVALID FOR*12/28/2016 More... Personal history of DVT (deep vein thrombosis) *INVALID FOR*01/11/2017 More... History of heparin-induced thrombocytopenia [Z8*INVALID FOR* Priority: C More... Hospital-acquired pneumonia [J18.9] INVALID FOR*12/28/2016 Priority: B More... Hypoxemia [R09.02] INVALID FOR*01/11/2017 (HFpEF) heart failure with preserved ejection f*INVALID FOR* Priority: C More... Headache [R51] INVALID FOR*01/18/2017 Priority: I More... More... Peripheral neuropathy (HCC) [G62.9] INVALID FOR* Priority: G Joint pain [M25.50] INVALID FOR*01/11/2017 More... Diffuse arthralgia [M25.50] INVALID FOR*01/11/2017 Priority: C More... CKD (chronic kidney disease) stage 3, GFR 30-59*INVALID FOR* Priority: C More... Obesity, Class III, BMI >= 40 (morbid obesity) *INVALID FOR* Priority: F More... Hypertensive emergency [I16.1] INVALID FOR*12/05/2016 More... Acute on chronic diastolic congestive heart ena*INVALID FOR*01/11/2017 More... APS (antiphospholipid syndrome) (HCC) [D68.61] INVALID FOR* Priority: C More... Elevated troponin level [R74.8] INVALID FOR*12/05/2016 More... Hypertensive urgency [I16.0] INVALID FOR*12/05/2016 PNA (pneumonia) [J18.9] INVALID FOR*12/27/2016 Acute respiratory failure with hypoxia (HCC) [J*INVALID FOR*12/27/2016 Clostridium difficile colitis [A04.72] INVALID FOR*12/28/2016 Hemoptysis [R04.2] INVALID FOR*01/20/2017 More... More... Supratherapeutic INR [R79.1] INVALID FOR*04/28/2017 Priority: B More... Cholelithiasis [K80.20] INVALID FOR*01/24/2017 Priority: B More... Ecchymosis of right eye [S05.11XA] INVALID FOR*01/18/2017 Priority: H More... Anticoagulation management encounter [Z51.81, Z*INVALID FOR* Priority: D Acute respiratory failure (HCC) [J96.00] INVALID FOR*02/10/2017 Priority: A More... Pulmonary HTN (HCC) [I27.20] INVALID FOR* Priority: F More... GERD (gastroesophageal reflux disease) [K21.9] INVALID FOR* Priority: E More... RUQ abdominal pain [R10.11] INVALID FOR* Priority: E More... Hemoptysis [R04.2] INVALID FOR*03/11/2017 More... Diarrhea [R19.7] INVALID FOR* Priority: E More... Bacteremia [R78.81] INVALID FOR* Priority: B More... History of HIT (heparin-induced thrombocytopeni*INVALID FOR* More... Recurrent deep vein thrombosis (DVT) (HCC) [I82*INVALID FOR* More... 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 Edema [R60.9] INVALID FOR*08/28/2017 Priority: A More... Flu-like symptoms [R68.89] INVALID FOR*06/10/2017 Hypercoagulable state (HCC) [D68.59] INVALID FOR* Priority: B More... Healthcare maintenance [Z00.00] INVALID FOR* More... Iron deficiency anemia secondary to inadequate *INVALID FOR* Priority: D More... SIRS (systemic inflammatory response syndrome) *INVALID FOR* More... Fever of undetermined origin [R50.9] INVALID FOR*08/25/2017 Red man syndrome [L27.0] INVALID FOR*08/28/2017 More... Sepsis due to Enterococcus (HCC) [A41.81] INVALID FOR* Priority: A Bacteremia due to Staphylococcus epidermidis [R*INVALID FOR* More... Follow-up and Disposition History Recorded Encounter Status:Closed by GERALDINE KOTHARI on 09/28/17 URINALYSIS Collected: 09/11/2017 Status: F Source: [place] 1:36 PM [facility] REPOSITORY TYPE CODE TESTS RESULT OUT OF RANGE REFERENCE UNITS LAB UCOL Yellow Color Yellow LAB [facility] Clear Clarity Abnormal Cloudy Alert LAB UGLUC Negative mg/dL Glucose, Urine Negative LAB UBIL Negative Bilirubin, Urine Negative LAB UKET Negative Ketones, Urine Negative LAB USPG 1.005-1.030 Specific [place], Ur 1.020 LAB UHGB Negative Hemoglobin/Blood, Negative Ur LAB UPH 4.5-8.0 pH 6.0 LAB UPROT Negative mg/dL Protein, Abnormal Urine 30 Alert LAB UUROB Normal Urobilinogen Normal LAB UNITR Negative Nitrites Negative LAB ULKEST Negative Leukest Abnormal 3+ Alert LAB UCOM Comments SEE COMMENT Result Comment: Microscopic Examination Performed LAB UWBC 0-5 /HPF Abnormal WBC Alert >25 LAB URBC 0-3 /HPF RBC 0-3 LAB UEPI /HPF Epithelial Cells SEE COMMENT Result Comment: Few Squamous Epithelial Cells LAB UMCOM Urine SEE Radha Comment COMMENT Result Comment: N/A LAB UCRYS 0 /HPF Abnormal Alert Crystals SEE COMMENT Result Comment: Many Calcium Oxalate Crystal Performed By: #### UA #### [facility] [address] [place], [place] [address] COMP METABOLIC PANEL Collected: 09/11/2017 Status: F Source: [place] 12:04 PM [facility] REPOSITORY TYPE CODE TESTS RESULT OUT OF REFERENCE UNITS RANGE LAB TP 6.3-8.0 g/dL Low Protein, Total 6.2 LAB ALB 3.9-4.9 g/dL Albumin 4.1 LAB CA 8.5-10.2 mg/dL Calcium, Total 8.8 LAB TBIL 0.2-1.3 mg/dL Bilirubin, Total 0.4 LAB ALKP 32-117 U/L Alkaline Phosphatase 50 LAB AST 13-35 U/L AST 16 LAB GLU 74-99 mg/dL Glucose High 134 Result Comment: The [place] [employer] (ADA) provides guidance for cutoff values for fasting glucose and random glucose. The ADA defines fasting as no caloric intake for at least 8 hours. Fas ting plasma glucose results between 100 to 125 mg/dL indicate increased risk for diabetes (prediabetes). Fasting plasma glucose results greater than or equal to 126 mg/dL meet the criteria for diagnosis of diabetes. In the absence of unequivocal hyperglycemia, results should be confirmed by repeat testing. In a patient with classic symptoms of hyperglycemia or hyperglycemic crisis, random plasma glucose results greater than or equal to 200 mg/dL meet the criteria for diagnosis of diabetes. Reference: Standards of Medical Care in Diabetes 2016, [place] [employer]. Diabetes Care. 2016.39(Suppl 1). LAB BUN 7-21 mg/dL BUN High 22 LAB CRET 0.58-0.96 mg/dL Creatinine High 1.19 LAB NA 136-144 mmol/L Sodium 138 LAB K 3.7-5.1 mmol/L Potassium 4.3 LAB CL 97-105 mmol/L Chloride 100 LAB CO2 22-30 mmol/L CO2 25 LAB AGAP 9-18 mmol/L Anion Gap 13 LAB ALT 7-38 U/L Low ALT <5 Result Comment: Result rechecked. LAB GFRAA eGFR- Amer. >60 LAB GFRNAA . eGFR-All Other Races 54 Result Comment: eGFR (Estimated GFR) Units of measure: mL/min/1.73 meters squared eGFR is derived from the reexpressed MDRD Study equation using the following parameters: serum creatinine, age, gender and race. The creatinine assay has been calibrated to be traceable to IDMS. An eGFR <60 mL/min/1.73m2 for >3 months is consistent with chronic kidney disease. Refer to KDOQI guidelines for clinical interpretation. In patients with unstable renal function, e.g. those with acute kidney injury, the eGFR may not accurately reflect actual GFR. Performed By: #### CMP, CRP, WSR #### [facility] [address] [place] [address] C-REACTIVE PROTEIN Collected: 09/11/2017 Status: F Source: [place] 12:04 PM [facility] REPOSITORY TYPE CODE TESTS RESULT OUT OF REFERENCE UNITS RANGE LAB CRP <0.9 mg/dL C-Reactive 0.4 Protein Performed By: #### CMP, CRP, WSR #### [facility] [address] [place] [address] SED RATE WESTERGREN Collected: 09/11/2017 Status: F Source: [place] 12:04 PM [facility] REPOSITORY TYPE CODE TESTS RESULT OUT OF REFERENCE UNITS RANGE LAB WSR 0-20 mm/hr Sed Rate [place] 8 Performed By: #### CMP, CRP, WSR #### [facility] [address] [place] [address] CNOV Observed: 09/11/2017 Status: COMPLETED Source: [place] 11:55 AM [facility] REPOSITORY Office Visit (PULMMN) [place] CAN[place] ([id number]) 1990 F PTR Date Time Provider Department 09/11/17 11:55 AM GUILLAUME ALICEA During your visit today, we recorded the following information about you: Temperature Pulse Respiration Blood pressure 98.2 degrees 88/minute 12/minute 135/70 Weight Height 92.7 kg 1.6 m Guillaume Alicea MD 09/11/2017 12:29 PM Signed SUBSEQUENT VISIT 27 year old never smoker being 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 She has been on plasmapheresis every other week since and is also on Prednisone 5 mg daily. Since her last visit she has improved clinically with regards to her alveolar hemorrhage on Cytoxan but had to stop this last month due to the development of catheter related bloodstream infection with leukopenia and is healing from this on IV antibiotics, and will complete this today. She has not had any additional events of venous or arterial thrombosis in the interim. She remains on chronic anticoagulation with Warfarin and follows with the Coumadin clinic for this. Since her last visit she has not had any additional episode of acute respiratory failure due to DAH and has been able to wean off supplemental O2 at 2 LPM to be used only nocturnally now. Today she is here in a wheelchair due to gait instability with dyspnea to MRC grade 2 and has no cough or hemoptysis, and denies any wheezing, pleuritic chest pain, or chest tightness. She has not had any lower respiratory infections in the past year. 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 REVIEW OF SYSTEMS GENERAL: No weight loss HEENT: Negative for frequent or significant headaches, No changes in hearing or vision, + nose bleeds or other nasal problems NECK: Negative for lumps, goiter, pain and significant neck swelling RESPIRATORY: Positive for dyspnea CARDIOVASCULAR: No chest pain GASTROINTESTINAL: No nausea MUSCULOSKELETAL: Negative for joint pain or swelling, back pain or muscle pain NEUROLOGIC: Negative for focal numbness or weakness, headaches and dizziness or syncope. SKIN: Negative for lesions, rash, and itching PSYCHIATRIC: Negative for sleep disturbance, mood disorder and recent psychosocial stressors. HEMATOLOGIC/LYMPHATIC/IMMUNOLOGIC: No swollen nodes ENDOCRINE: No goiter The remainder of the complete systems was benign. PHYSICAL EXAMINATION: General appearance: Well appearing, alert, in no acute distress, well-hydrated, well nourished. Skin: Skin color, texture, turgor normal, no suspicious rashes or lesions Head: Normocephalic, no masses, lesions, tenderness or abnormalities Eyes: Anicteric sclera. Pupils are equally round and reactive to light. Extraocular movements are intact. Oropharynx: Lips, mucosa, and tongue normal, teeth and gums normal, oropharynx normal Neck: Supple, no adenopathy; no bruits Lungs: Clear to auscultation. No wheezing, rhonchi, rales Heart: RRR without murmur, gallop, or rubs. No ectopy Abdomen: Abdomen soft, non-tender. Bowel sounds normal. No masses, organomegaly Extremities: No deformities, edema, skin discoloration, clubbing or cyanosis. Good capillary refill. Peripheral pulses: Normal LABORATORY DATA Studies reviewed by me include CT chest that showed improvements but persistence in the bilateral ground glass changes along with resolution of areas of consolidation from diffuse alveolar hemorrhage. IMPRESSION, REPORT AND PLAN She has DAH in the setting of anti-phospholipid antibody syndrome and has improved clinically on Cytoxan. She had to stop this due to episode of catheter related bloodstream infection with leukopenia and now that she is done with antibiotics she can restart Cytoxan at a lower dose of 150 mg daily with monitoring for toxicities. Since she has improved she can stop supplemental O2 during the day and use this at night at 2 LPM for chronic respiratory failure. She will continue to follow with Dr Andujar with plasmapheresis every other week since she is triple positive and has extensive venous thrombosis and is also on Coumadin to keep her INR between 2.5 to 3.5. She will continue with Prednisone 5 mg daily and will remain on Bactrim for PJP prophylaxis. Since she is clinically improving, and she has gait instability, will get her set up for physical therapy. She will return to see us in 3 months, sooner if needed. Guillaume Alicea MD Referring Provider: GUILLAUME ALICEA [[id number]] Allergies As of Date: 09/11/2017 Noted Allergy Reaction RHUBARB 10/24/2013 2 - Rash 4 - Hives HEPARIN 10/24/2013 14 - Other: See Comments Comments: Per patient history of HIT - was on angiomax however then took l fondaparinux for bridging to coumadin. IV CONTRAST (IODINE) 2016 14 - Other: See Comments Comments: shuts kidneys down per patient RITUXIMAB 11/09/2016 14 - Other: See Comments Comments: Elevated cardiac enzymes Date Reviewed: 09/11/2017 Reviewed by: Ayana Carrera MA - Fully Assessed Reason for Visit: Recheck [92] Primary Visit Diagnosis:Antiphospholipid antibody syndrome (HCC) [D68.61] Other Visit Diagnoses:Physical deconditioning [R53.81] Diffuse pulmonary alveolar hemorrhage [R04.2] Chronic hypoxemic respiratory failure (HCC) [J96.11] Order(s):cyclophosphamide (CYTOXAN) 50 mg capsuleTake 3 capsules by mouth once daily.Disp: 120 capsuleRfl: 6 CONSULT TO PHYSICAL THERAPY [9032] Order #: [id number]: 1 XR CHEST 2V FRONTAL/LAT [3132471] Order #: [id number] FUTURE COMP METABOLIC PANEL [SQCMP] Order #: [id number] FUTURE UA CHEMSTRIP ONLY [SQUA] Order #: [id number] FUTURE SED RATE WESTERGREN [SQWSR] Order #: [id number] FUTURE C-REACTIVE PROTEIN (CRP) [SQCRP] Order #: [id number] FUTURE predniSONE (DELTASONE) 5 mg tabletTake 1 tablet by mouth once daily.Disp: 200 tabletRfl: 4 Prescriptions as of 09/11/2017 Sig: CYCLOPHOSPHAMIDE 50 MG CAPSULE Take 3 capsules by mouth once* PREDNISONE 5 MG TABLET Take 1 tablet by mouth once d* WARFARIN 2.5 MG TABLET take by mouth as directed in * AMLODIPINE 5 MG TABLET Take 2 tablets by mouth once * SULFAMETHOXAZOLE 800 MG-TRIME* Take 1 tablet by mouth every * GABAPENTIN 300 MG CAPSULE Please take gabapentin 200 mg* Patient taking differently: 300 mg three times daily. FLUTICASONE 50 MCG/ACTUATION * Use 1 [place] in each nostril o* PANTOPRAZOLE 40 MG TABLET,DEL* Take 1 tablet by mouth DAILY * CETIRIZINE 10 MG TABLET Take 1 tablet by mouth once d* Patient taking differently: Take 10 mg by mouth twice lis* SENNOSIDES 8.6 MG TABLET Take 1 tablet by mouth twice * More... More... Problem List As Of Date 09/11/2017 Noted Resolved Catastrophic Antiphospholipid antibody syndrome*INVALID FOR*01/24/2017 Priority: C More... 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 Severe Gastritis [K29.70] INVALID FOR*01/11/2017 Priority: F More... More... More... More... More... Anasarca [R60.1] INVALID FOR*01/24/2017 Priority: E More... More... More... More... More... More... 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 More... More... More... More... More... More... More... More... Hx pulmonary embolism [Z86.711] INVALID FOR*01/11/2017 Priority: C More... H/O deep vein thrombophlebitis of lower extremi*INVALID FOR*03/12/2015 Priority: C More... More... More... More... More... More... Hemoptysis [R04.2] INVALID FOR*12/27/2016 More... Elevated troponin [R74.8] INVALID FOR*01/11/2017 Pancytopenia (HCC) [D61.818] INVALID FOR* Priority: C More... Thrombocytopenia (HCC) [D69.6] INVALID FOR*01/11/2017 More... SUMMARY INVALID FOR*01/24/2017 Priority: A More... SIRS (systemic inflammatory response syndrome) *INVALID FOR*04/15/2015 Priority: D More... DVT (deep venous thrombosis) (HCC) [I82.409] INVALID FOR*01/11/2017 Priority: D More... Iron deficiency anemia [D50.9] INVALID FOR*01/11/2017 Priority: F More... Productive cough, hemoptysis [R04.2] INVALID FOR*01/04/2017 Priority: B Community acquired pneumonia [J18.9] INVALID FOR*01/11/2017 Respiratory failure with hypoxia (HCC) [J96.91] INVALID FOR*01/11/2017 Priority: B More... SOB (shortness of breath) [R06.02] INVALID FOR*12/28/2016 HTN (hypertension) [I10] INVALID FOR* Priority: E More... CAPRICE (acute kidney injury) (HCC) [N17.9] INVALID FOR* Priority: B More... 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 Hx of gastritis [Z87.19] INVALID FOR*01/11/2017 More... Nausea AND vomiting [R11.2] INVALID FOR*08/28/2017 Priority: B More... 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 Anemia associated with acute blood loss [D62] INVALID FOR*01/11/2017 More... More... Acute on chronic respiratory failure with hypox*INVALID FOR* Priority: A More... Abdominal pain [R10.9] INVALID FOR* Priority: E More... Vomiting [R11.10] INVALID FOR*01/04/2017 Antiphospholipid syndrome (HCC) [D68.61] INVALID FOR*01/04/2017 Severe protein-calorie malnutrition (HCC) [E43] INVALID FOR* Priority: B Hypoxia [R09.02] INVALID FOR*01/11/2017 Acute hypoxemic respiratory failure (HCC) [J96.*INVALID FOR*12/28/2016 More... Personal history of DVT (deep vein thrombosis) *INVALID FOR*01/11/2017 More... History of heparin-induced thrombocytopenia [Z8*INVALID FOR* Priority: C More... Hospital-acquired pneumonia [J18.9] INVALID FOR*12/28/2016 Priority: B More... Hypoxemia [R09.02] INVALID FOR*01/11/2017 (HFpEF) heart failure with preserved ejection f*INVALID FOR* Priority: C More... Headache [R51] INVALID FOR*01/18/2017 Priority: I More... More... Peripheral neuropathy (HCC) [G62.9] INVALID FOR* Priority: G Joint pain [M25.50] INVALID FOR*01/11/2017 More... Diffuse arthralgia [M25.50] INVALID FOR*01/11/2017 Priority: C More... CKD (chronic kidney disease) stage 3, GFR 30-59*INVALID FOR* Priority: C More... Obesity, Class III, BMI >= 40 (morbid obesity) *INVALID FOR* Priority: F More... Hypertensive emergency [I16.1] INVALID FOR*12/05/2016 More... Acute on chronic diastolic congestive heart ena*INVALID FOR*01/11/2017 More... APS (antiphospholipid syndrome) (HCC) [D68.61] INVALID FOR* Priority: C More... Elevated troponin level [R74.8] INVALID FOR*12/05/2016 More... Hypertensive urgency [I16.0] INVALID FOR*12/05/2016 PNA (pneumonia) [J18.9] INVALID FOR*12/27/2016 Acute respiratory failure with hypoxia (HCC) [J*INVALID FOR*12/27/2016 Clostridium difficile colitis [A04.72] INVALID FOR*12/28/2016 Hemoptysis [R04.2] INVALID FOR*01/20/2017 More... More... Supratherapeutic INR [R79.1] INVALID FOR*04/28/2017 Priority: B More... Cholelithiasis [K80.20] INVALID FOR*01/24/2017 Priority: B More... Ecchymosis of right eye [S05.11XA] INVALID FOR*01/18/2017 Priority: H More... Anticoagulation management encounter [Z51.81, Z*INVALID FOR* Priority: D Acute respiratory failure (HCC) [J96.00] INVALID FOR*02/10/2017 Priority: A More... Pulmonary HTN (HCC) [I27.20] INVALID FOR* Priority: F More... GERD (gastroesophageal reflux disease) [K21.9] INVALID FOR* Priority: E More... RUQ abdominal pain [R10.11] INVALID FOR* Priority: E More... Hemoptysis [R04.2] INVALID FOR*03/11/2017 More... Diarrhea [R19.7] INVALID FOR* Priority: E More... Bacteremia [R78.81] INVALID FOR* Priority: B More... History of HIT (heparin-induced thrombocytopeni*INVALID FOR* More... Recurrent deep vein thrombosis (DVT) (HCC) [I82*INVALID FOR* More... 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 Edema [R60.9] INVALID FOR*08/28/2017 Priority: A More... Flu-like symptoms [R68.89] INVALID FOR*06/10/2017 Hypercoagulable state (HCC) [D68.59] INVALID FOR* Priority: B More... Healthcare maintenance [Z00.00] INVALID FOR* More... Iron deficiency anemia secondary to inadequate *INVALID FOR* Priority: D More... SIRS (systemic inflammatory response syndrome) *INVALID FOR* More... Fever of undetermined origin [R50.9] INVALID FOR*08/25/2017 Red man syndrome [L27.0] INVALID FOR*08/28/2017 More... Sepsis due to Enterococcus (HCC) [A41.81] INVALID FOR* Priority: A Bacteremia due to Staphylococcus epidermidis [R*INVALID FOR* More... Prescriptions ordered this encounter Disp Refills Start End CYCLOPHOSPHAMIDE 50 MG CAPSULE 120 * 6 09/11/2017 Class: Med Update Route: ORAL Sig: Take 3 capsules by mouth once daily. PREDNISONE 5 MG TABLET 200 * 4 09/11/2017 Class: Med Update Route: ORAL Sig: Take 1 tablet by mouth once daily. Medications Discontinued During This Encounter DAPTOmycin 400 mg in NaCl (PF) 0.9% * 09/07/2017 09/11/2017 Class: Med Update Route: INTRAVENOUS Sig: Inject 8 mL intravenously q 24 HR. Disc: Reason for discontinue is not on file. fondaparinux (ARIXTRA) 2.5 mg/0.5 mL* 5 mL 0 09/06/2017 09/11/2017 Class: Print RX Route: SUBCUTANEOUS Sig: Inject 0.5 mL subcutaneously q 24 HR. Disc: Reason for discontinue is not on file. predniSONE (DELTASONE) 5 mg tablet 200 * 4 06/20/2017 09/11/2017 Sig: Take by mouth daily. 20 mg - Jun; 15 mg - Jul; 10 mg - Aug; 5 mg - Sep onwards Disc: Reason for discontinue is not on file. Encounter Status:Closed by GUILLAUME ALICEA MD on 09/11/17 CBC AND DIFFERENTIAL Collected: 09/11/2017 Status: F Source: [place] 11:51 AM [facility] REPOSITORY TYPE CODE TESTS RESULT OUT OF REFERENCE UNITS RANGE LAB WBC 3.70-11.00 k/uL WBC 5.97 LAB RBC 3.90-5.20 m/uL Low RBC 3.55 LAB HGB 11.5-15.5 g/dL Low Hemoglobin 9.4 LAB HCT 36.0-46.0 % Low Hematocrit 31.2 LAB MCV 80.0-100.0 fL MCV 87.9 LAB MCH 26.0-34.0 pG MCH 26.5 LAB MCHC 30.5-36.0 g/dL Low MCHC 30.1 LAB RDWCV 11.5-15.0 % RDW-CV High 22.2 LAB PLTCT 150-400 k/uL Low Platelet Count 69 Result Comment: Result checked and verified No clot detected. LAB MPV 9.0-12.7 fL MPV <<DO NOT REPORT>> LAB ANEUT % Neut% 87.3 LAB AANEUT 1.45-7.50 k/uL Abs 5.21 Neut LAB ALYMP % 6.0 Lymph% LAB AALYMP 1.00-4.00 k/uL Abs 0.36 Low Lymph LAB AMONO % [place]% 4.4 LAB AAMONO <0.87 k/uL Abs 0.26 [place] LAB AEOS % 1.8 Eosin% LAB AAEOS <0.46 k/uL Abs 0.11 Eosin LAB ABASO % Baso% 0.5 LAB AABASO <0.11 k/uL Abs 0.03 Baso LAB AUNRBC 0 /100 WBC NRBCs 0.0 LAB ABNRBC <0.01 k/uL <0.01 Absolute nRBC LAB DTYP DTYPE Auto Diff Performed By: #### CBCDIF #### [facility] [address] [place], [place] [address] PROGRESS Observed: 09/11/2017 Status: COMPLETED Source: [place] 11:09 AM [facility] REPOSITORY HNO ID: [id number] Author: Guillaume Alicea Service: (none) Author Type: Physician Type: Progress Notes Filed: 09/11/2017 12:29 PM Note Text: SUBSEQUENT VISIT 27 year old never smoker being 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 She has been on plasmapheresis every other week since and is also on Prednisone 5 mg daily. Since her last visit she has improved clinically with regards to her alveolar hemorrhage on Cytoxan but had to stop this last month due to the development of catheter related bloodstream infection with leukopenia and is healing from this on IV antibiotics, and will complete this today. She has not had any additional events of venous or arterial thrombosis in the interim. She remains on chronic anticoagulation with Warfarin and follows with the Coumadin clinic for this. Since her last visit she has not had any additional episode of acute respiratory failure due to DAH and has been able to wean off supplemental O2 at 2 LPM to be used only nocturnally now. Today she is here in a wheelchair due to gait instability with dyspnea to MRC grade 2 and has no cough or hemoptysis, and denies any wheezing, pleuritic chest pain, or chest tightness. She has not had any lower respiratory infections in the past year. 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 REVIEW OF SYSTEMS GENERAL: No weight loss HEENT: Negative for frequent or significant headaches, No changes in hearing or vision, + nose bleeds or other nasal problems NECK: Negative for lumps, goiter, pain and significant neck swelling RESPIRATORY: Positive for dyspnea CARDIOVASCULAR: No chest pain GASTROINTESTINAL: No nausea MUSCULOSKELETAL: Negative for joint pain or swelling, back pain or muscle pain NEUROLOGIC: Negative for focal numbness or weakness, headaches and dizziness or syncope. SKIN: Negative for lesions, rash, and itching PSYCHIATRIC: Negative for sleep disturbance, mood disorder and recent psychosocial stressors. HEMATOLOGIC/LYMPHATIC/IMMUNOLOGIC: No swollen nodes ENDOCRINE: No goiter The remainder of the complete systems was benign. PHYSICAL EXAMINATION: General appearance: Well appearing, alert, in no acute distress, well-hydrated, well nourished. Skin: Skin color, texture, turgor normal, no suspicious rashes or lesions Head: Normocephalic, no masses, lesions, tenderness or abnormalities Eyes: Anicteric sclera. Pupils are equally round and reactive to light. Extraocular movements are intact. Oropharynx: Lips, mucosa, and tongue normal, teeth and gums normal, oropharynx normal Neck: Supple, no adenopathy; no bruits Lungs: Clear to auscultation. No wheezing, rhonchi, rales Heart: RRR without murmur, gallop, or rubs. No ectopy Abdomen: Abdomen soft, non-tender. Bowel sounds normal. No masses, organomegaly Extremities: No deformities, edema, skin discoloration, clubbing or cyanosis. Good capillary refill. Peripheral pulses: Normal LABORATORY DATA Studies reviewed by me include CT chest that showed improvements but persistence in the bilateral ground glass changes along with resolution of areas of consolidation from diffuse alveolar hemorrhage. IMPRESSION, REPORT AND PLAN She has DAH in the setting of anti-phospholipid antibody syndrome and has improved clinically on Cytoxan. She had to stop this due to episode of catheter related bloodstream infection with leukopenia and now that she is done with antibiotics she can restart Cytoxan at a lower dose of 150 mg daily with monitoring for toxicities. Since she has improved she can stop supplemental O2 during the day and use this at night at 2 LPM for chronic respiratory failure. She will continue to follow with Dr Andujar with plasmapheresis every other week since she is triple positive and has extensive venous thrombosis and is also on Coumadin to keep her INR between 2.5 to 3.5. She will continue with Prednisone 5 mg daily and will remain on Bactrim for PJP prophylaxis. Since she is clinically improving, and she has gait instability, will get her set up for physical therapy. She will return to see us in 3 months, sooner if needed. Guillaume Alicea MD CT CHEST WO IVCON Observed: 09/11/2017 Status: F Source: [place] 9:56 AM [facility] REPOSITORY * * *Final Report* * * DATE OF EXAM: Sep 11 2017 9:56AM [facility] 0541 - CT CHEST WO IVCON / PROCEDURE REASON: Hemoptysis * * * * Physician Interpretation * * * * EXAMINATION: CHEST CT WITHOUT CONTRAST Indication: Hemoptysis Technique: Spiral CT acquisition of the chest from the thoracic inlet to the upper abdomen without contrast. MQ: [id number] CT Dose-Length Product: 281 mGy*cm CT Dose Reduction Employed: Automated exposure control (AEC) Comparison: Prior chest CT dated 12/19/2016 RESULT: Lines, tubes, and devices: Left hemodialysis catheter terminates in the right atrium. Additional left central line terminates in the cavoatrial junction. Lung parenchyma and pleura: Small dependent endotracheal opacities probably aspirated debris or retained mucus secretions. Otherwise, patent central airways with bronchial thickening. Diffuse bilateral confluent areas of groundglass opacity throughout both lungs in a centrilobular distribution pattern. Several small nodules scattered throughout the dependent portion of the left lower lobe are likely infectious or possibly aspiration induced. No focal consolidations or dominant nodules. No substantial septal thickening. Mild scattered areas of air trapping. Thoracic inlet, heart, and mediastinum: Hypertrophied collateral vessels within the mediastinum, bilateral paraspinal region. Enlarged azygous vein. No substantial mediastinal adenopathy. Mild left heart enlargement. No pericardial effusion. Bones and soft tissues: Mild degenerative changes of the thoracic spine. Multiple chest wall collateral vessels are increased from priors. Upper abdomen: Post cholecystectomy clips. No acute upper abdominal abnormalities. IMPRESSION: Diffuse bilateral confluent areas of groundglass opacity throughout both lungs in a centrilobular distribution pattern with mild scattered areas of air trapping. Findings are concerning for diffuse alveolar hemorrhage in the clinical setting of anti-phospholipid antibody syndrome, although, infection, edema, inhalation lung disease or hypersensitivity pneumonitis can have a similar appearance. Multiple small left lower lobe dependent nodular opacities probably infectious or aspiration induced. Practice Support Specialist: PSCGaudencio Transcribe Date/Time: Sep 11 2017 11:15A Dictated by : KEREN BLANCO MD This examination was interpreted and the report reviewed and electronically signed by: KEREN BLANCO MD on Sep 11 2017 11:30AM EST [id number] PROGRESS Observed: 09/11/2017 Status: COMPLETED Source: [place] 9:47 AM [facility] REPOSITORY HNO ID: [id number] Author: ROXY Romero (Ct) Service: Radiology Author Type: Clinical Title Clerk Automobile Type: Progress Notes Filed: 09/11/2017 9:58 AM Note Text: Radiology Service Progress Note PATIENT NAME: Paloma Cannon DATE OF SERVICE: September 11, 2017 TIME: 9:47 AM PATIENT IDENTITY VERIFICATION COMPLETED USING TWO (2) METHODS: Patient confirmed name verbally and ID band matches.. PATIENT GENDER DATA: Female. status: : No status: NO. PATIENT RELEVANT IMPLANT DATA REVIEWED: Yes RADIOLOGY DEPARTMENT: CT; Exam(s) Completed: Chest PERIPHERAL IV DATA: Not applicable SIGNED BY: ROXY Romero September 11, 2017 9:47 AM PROTHROMBIN TIME W/INR Collected: 09/11/2017 Status: F Source: [place] 8:05 AM [facility] REPOSITORY Order Comment: MEDOUT/PORT DRAW TYPE CODE TESTS RESULT OUT OF RANGE REFERENCE UNITS LAB L300.4150 11.7-14.9 SECONDS High PROTIME 22.5 LAB L300.4200 Normal INR 2.0 Performed By: #### L300.3900 #### [facility] [address] [place], [address] CBC W/DIFF, AUTOMATED Collected: 09/11/2017 Status: F Source: [place] 8:05 AM [facility] REPOSITORY Order Comment: Comments: ABIGAIL NARANJO CNP, FAX TO [phone] TYPE CODE TESTS RESULT OUT OF RANGE REFERENCE UNITS LAB L100.1000 4.4-11.0 K/mm3 Low WBC 2.6 LAB L100.1200 4.2-5.4 M/mm3 Low RBC 3.31 LAB L100.1300 12.0-15.0 g/dl Low HGB 8.7 LAB L100.1400 37-47 % Low HCT 29.0 LAB L100.1500 81-99 fL Normal MCV 87.6 LAB L100.1600 27.0-32.0 pg Low MCH 26.3 LAB L100.1700 32-36 g/gl Low MCHC 30.0 LAB L100.1810 11.6-14.6 % High RDW CV 22.4 LAB L100.1820 35.1-43.9 fl High RDW SD 71.0 LAB L100.1900 150-450 K/mm3 Low PLT 56 LAB L100.2100 47-70 % Normal NEUT% 67.2 LAB L100.2200 19-41 % Low LY% 15.6 LAB L100.2300 0-10 % High MONO% 10.5 LAB L100.2400 0-5 % High EO% 5.9 LAB L100.2500 0-1 % Normal BASO% 0.4 LAB L100.2550 0.0-0.9 % Normal IM GRAN % 0.400 Result Comment: IG% - Immature Granulocytes (promyelocytes, myelocytes and metamyelocytes) > 1% indicates that a LEFT SHIFT is Present. LAB L100.2620 2.0-7.7 X10 3/uL Low Absolute Neut 1.7 LAB L100.2720 0.83-4.51 X10 3/ul Low Absolute Lymph 0.40 LAB L100.4500 Normal SMEAR COMMENT COMMENT Result Comment: SLIDE SCANNED - 1+ ANISO, 1+ SCHISTOCYTES, 1+ LARGE PLTS. Performed By: #### L100.0100 #### [facility] [place], [address] HOSP Observed: 09/11/2017 Status: COMPLETED Source: [place] 12:00 AM [facility] REPOSITORY Patient Update (INFDMN) PALOMA CANNON ([id number]) 1990 F PTR Date Time Provider Department 09/11/17 DOMINIQUE WRIGHT During your visit today, we recorded the following information about you: Aleta Palaciosgabby Ventura 09/11/2017 2:31 PM Signed Per orders of Dr.Koval chela luis. She is keeps the line for other reasons. Notified [facility] at [phone]. Spoke with Ursula. Aleta Lamas Sec Allergies As of Date: 09/11/2017 Noted Allergy Reaction RHUBARB 10/24/2013 2 - Rash 4 - Hives HEPARIN 10/24/2013 14 - Other: See Comments Comments: Per patient history of HIT - was on angiomax however then took l fondaparinux for bridging to coumadin. IV CONTRAST (IODINE) 2016 14 - Other: See Comments Comments: shuts kidneys down per patient RITUXIMAB 11/09/2016 14 - Other: See Comments Comments: Elevated cardiac enzymes Date Reviewed: 09/11/2017 Reviewed by: Ayana Carrera MA - Fully Assessed Reason for Visit: Petrona Stop [1682] Prescriptions as of 09/11/2017 Sig: CYCLOPHOSPHAMIDE 50 MG CAPSULE Take 3 capsules by mouth once* PREDNISONE 5 MG TABLET Take 1 tablet by mouth once d* WARFARIN 2.5 MG TABLET take by mouth as directed in * AMLODIPINE 5 MG TABLET Take 2 tablets by mouth once * SULFAMETHOXAZOLE 800 MG-TRIME* Take 1 tablet by mouth every * GABAPENTIN 300 MG CAPSULE Please take gabapentin 200 mg* Patient taking differently: 300 mg three times daily. FLUTICASONE 50 MCG/ACTUATION * Use 1 [place] in each nostril o* PANTOPRAZOLE 40 MG TABLET,DEL* Take 1 tablet by mouth DAILY * CETIRIZINE 10 MG TABLET Take 1 tablet by mouth once d* Patient taking differently: Take 10 mg by mouth twice lis* SENNOSIDES 8.6 MG TABLET Take 1 tablet by mouth twice * More... More... Problem List As Of Date 09/11/2017 Noted Resolved Catastrophic Antiphospholipid antibody syndrome*INVALID FOR*01/24/2017 Priority: C More... 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 Severe Gastritis [K29.70] INVALID FOR*01/11/2017 Priority: F More... More... More... More... More... Anasarca [R60.1] INVALID FOR*01/24/2017 Priority: E More... More... More... More... More... More... 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 More... More... More... More... More... More... More... More... Hx pulmonary embolism [Z86.711] INVALID FOR*01/11/2017 Priority: C More... H/O deep vein thrombophlebitis of lower extremi*INVALID FOR*03/12/2015 Priority: C More... More... More... More... More... More... Hemoptysis [R04.2] INVALID FOR*12/27/2016 More... Elevated troponin [R74.8] INVALID FOR*01/11/2017 Pancytopenia (HCC) [D61.818] INVALID FOR* Priority: C More... Thrombocytopenia (HCC) [D69.6] INVALID FOR*01/11/2017 More... SUMMARY INVALID FOR*01/24/2017 Priority: A More... SIRS (systemic inflammatory response syndrome) *INVALID FOR*04/15/2015 Priority: D More... DVT (deep venous thrombosis) (HCC) [I82.409] INVALID FOR*01/11/2017 Priority: D More... Iron deficiency anemia [D50.9] INVALID FOR*01/11/2017 Priority: F More... Productive cough, hemoptysis [R04.2] INVALID FOR*01/04/2017 Priority: B Community acquired pneumonia [J18.9] INVALID FOR*01/11/2017 Respiratory failure with hypoxia (HCC) [J96.91] INVALID FOR*01/11/2017 Priority: B More... SOB (shortness of breath) [R06.02] INVALID FOR*12/28/2016 HTN (hypertension) [I10] INVALID FOR* Priority: E More... CAPRICE (acute kidney injury) (HCC) [N17.9] INVALID FOR* Priority: B More... 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 Hx of gastritis [Z87.19] INVALID FOR*01/11/2017 More... Nausea AND vomiting [R11.2] INVALID FOR*08/28/2017 Priority: B More... 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 Anemia associated with acute blood loss [D62] INVALID FOR*01/11/2017 More... More... Acute on chronic respiratory failure with hypox*INVALID FOR* Priority: A More... Abdominal pain [R10.9] INVALID FOR* Priority: E More... Vomiting [R11.10] INVALID FOR*01/04/2017 Antiphospholipid syndrome (HCC) [D68.61] INVALID FOR*01/04/2017 Severe protein-calorie malnutrition (HCC) [E43] INVALID FOR* Priority: B Hypoxia [R09.02] INVALID FOR*01/11/2017 Acute hypoxemic respiratory failure (HCC) [J96.*INVALID FOR*12/28/2016 More... Personal history of DVT (deep vein thrombosis) *INVALID FOR*01/11/2017 More... History of heparin-induced thrombocytopenia [Z8*INVALID FOR* Priority: C More... Hospital-acquired pneumonia [J18.9] INVALID FOR*12/28/2016 Priority: B More... Hypoxemia [R09.02] INVALID FOR*01/11/2017 (HFpEF) heart failure with preserved ejection f*INVALID FOR* Priority: C More... Headache [R51] INVALID FOR*01/18/2017 Priority: I More... More... Peripheral neuropathy (HCC) [G62.9] INVALID FOR* Priority: G Joint pain [M25.50] INVALID FOR*01/11/2017 More... Diffuse arthralgia [M25.50] INVALID FOR*01/11/2017 Priority: C More... CKD (chronic kidney disease) stage 3, GFR 30-59*INVALID FOR* Priority: C More... Obesity, Class III, BMI >= 40 (morbid obesity) *INVALID FOR* Priority: F More... Hypertensive emergency [I16.1] INVALID FOR*12/05/2016 More... Acute on chronic diastolic congestive heart ena*INVALID FOR*01/11/2017 More... APS (antiphospholipid syndrome) (HCC) [D68.61] INVALID FOR* Priority: C More... Elevated troponin level [R74.8] INVALID FOR*12/05/2016 More... Hypertensive urgency [I16.0] INVALID FOR*12/05/2016 PNA (pneumonia) [J18.9] INVALID FOR*12/27/2016 Acute respiratory failure with hypoxia (HCC) [J*INVALID FOR*12/27/2016 Clostridium difficile colitis [A04.72] INVALID FOR*12/28/2016 Hemoptysis [R04.2] INVALID FOR*01/20/2017 More... More... Supratherapeutic INR [R79.1] INVALID FOR*04/28/2017 Priority: B More... Cholelithiasis [K80.20] INVALID FOR*01/24/2017 Priority: B More... Ecchymosis of right eye [S05.11XA] INVALID FOR*01/18/2017 Priority: H More... Anticoagulation management encounter [Z51.81, Z*INVALID FOR* Priority: D Acute respiratory failure (HCC) [J96.00] INVALID FOR*02/10/2017 Priority: A More... Pulmonary HTN (HCC) [I27.20] INVALID FOR* Priority: F More... GERD (gastroesophageal reflux disease) [K21.9] INVALID FOR* Priority: E More... RUQ abdominal pain [R10.11] INVALID FOR* Priority: E More... Hemoptysis [R04.2] INVALID FOR*03/11/2017 More... Diarrhea [R19.7] INVALID FOR* Priority: E More... Bacteremia [R78.81] INVALID FOR* Priority: B More... History of HIT (heparin-induced thrombocytopeni*INVALID FOR* More... Recurrent deep vein thrombosis (DVT) (HCC) [I82*INVALID FOR* More... 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 Edema [R60.9] INVALID FOR*08/28/2017 Priority: A More... Flu-like symptoms [R68.89] INVALID FOR*06/10/2017 Hypercoagulable state (HCC) [D68.59] INVALID FOR* Priority: B More... Healthcare maintenance [Z00.00] INVALID FOR* More... Iron deficiency anemia secondary to inadequate *INVALID FOR* Priority: D More... SIRS (systemic inflammatory response syndrome) *INVALID FOR* More... Fever of undetermined origin [R50.9] INVALID FOR*08/25/2017 Red man syndrome [L27.0] INVALID FOR*08/28/2017 More... Sepsis due to Enterococcus (HCC) [A41.81] INVALID FOR* Priority: A Bacteremia due to Staphylococcus epidermidis [R*INVALID FOR* More... Visit Notes: >> Aleta Ventura Mon Sep 11, 2017 2:30 PM Status: Signed Per orders of Dr.Koval chela luis. She is keeps the line for other reasons. Notified [facility] at [phone]. Spoke with Stephanie. Aleta Ventura Encounter Status:Closed by ALETA BENITES on 09/11/17 PROTHROMBIN TIME W/INR Collected: 09/08/2017 Status: F Source: [place] 8:00 AM [facility] REPOSITORY Order Comment: MEDOUT/PORT DRAW TYPE CODE TESTS RESULT OUT OF RANGE REFERENCE UNITS LAB L300.4150 11.7-14.9 SECONDS High PROTIME 17.6 LAB L300.4200 Normal INR 1.4 Performed By: #### L300.3900 #### [facility] [address], [address] PT ED Observed: 09/06/2017 Status: COMPLETED Source: [place] 2:09 PM [facility] REPOSITORY HNO ID: [id number] Author: Denise Sauer) Timo Huffman RN Service: (none) Author Type: Registered Nurse Type: Patient Education Filed: 09/06/2017 2:20 PM Note Text: PATIENT EDUCATION TOPIC: PATIENT INFORMATION: Discharge PATIENT NAME: Paloma Cannon PATIENT LOCATION: [place] [address] READINESS TO LEARN COGNITIVE ABILITY: Alert and oriented MOTIVATION TO LEARN: Interested FAMILY SUPPORT: High - Very involved in pt care INSTRUCTION PROVIDED TO: Patient and family member PATIENT LEARNS BEST BY: Multiple Methods FACTORS AFFECTING LEARNING: None PHYSICAL LIMITATIONS AFFECTING LEARNING: Pain LEARNING RESPONSE DIAGNOSIS: ADULT: blood infection PATIENT/FAMILY RESPONSE: Information received as demonstrated by interest and questions METHOD OF INSTRUCTION: Written instruction - handouts Verbal instruction FOLLOW-UP PLAN: Follow-up with Primary Care INSTRUCTIONAL AIDS USED: Discharge instructions SUPPLEMENTAL MATERIAL PROVIDED TO PATIENT: None REFERRAL (RECOMMENDATION): Primary Care Provider Electronically Signed By: Denise Huffman RN CASE MANAGEM Observed: 09/06/2017 Status: COMPLETED Source: [place] 2:09 PM [facility] REPOSITORY HNO ID: [id number] Author: Dary (Rn) JEFF Jimenes Service: Care Management Author Type: Registered Nurse Type: Care Mgt Progress Note Filed: 09/06/2017 2:24 PM Note Text: CARE MANAGEMENT DISCHARGE NOTE SERVICE DATE: 09/06/2017 SERVICE TIME: 2:16 PM LOS: 12 days Admission Date: 08/25/2017 DISCHARGE ARRANGEMENT (list agency and phone number) Home, Home care and Home care pharmacy Provider: [facility] Serv[facility] [place], [place] and Surrounding Areas [facility] will provide nursing. P: [phone]. F: [phone] CAREGIVER ASSESSMENT: Caregiver is ready, willing and able to meet the patient's needs as recommended by the inter-professional team? Yes Patient's transition needs and plan for meeting these needs: will DC to home w/HHC/HIP Does the patient have an acute stroke diagnosis, or has the patient had a stroke during this admission? No HANDOFF COMMUNICATION: Primary Care Physician: PEYTON ROGERS MD TRANSPORTATION ARRANGEMENTS: Car with spouse ADDITIONAL CONTACT RESOURCES: n/a Patient is ready for DC to home. Will DC w/Copat Dapto Q24 hrs, has received today's dose. HHC SOC 09/07/2017 am, [facility] will deliver IV abx to home tonight. Spouse, Morteza, has stated that he has done IV abx at home with patient in the past and is comfortable with this. Patient and spouse are agreeable to plan. BS RN to discuss DC instructions. SIGNATURE: Dary Jimenes RN PATIENT NAME: Paloma Cannon DATE: September 06, 2017 TIME: 2:16 PM PAGER/CONTACT #: [phone] CASE MANAGEM Observed: 09/06/2017 Status: COMPLETED Source: [place] 1:55 PM [facility] REPOSITORY HNO ID: [id number] Author: Renetta Villanueva Service: Care Management Author Type: (none) Type: Care Mgt Progress Note Filed: 09/06/2017 1:55 PM Note Text: CARE MANAGEMENT PROGRESS NOTE SERVICE DATE: 09/06/2017 SERVICE TIME: 1:54 PM LOS: 12 days IM letter given to patient on 09/06/17. SIGNATURE: Renetta Villanueva Graduate Studies Dean PATIENT NAME: Paloma Cannon DATE: September 06, 2017 TIME: 1:55 PM PAGER/CONTACT #: [phone] PLAN OF CARE Observed: 09/06/2017 Status: COMPLETED Source: [place] 1:46 PM [facility] REPOSITORY HNO ID: [id number] Author: Geraldine Lazar ([employer]) Service: (none) Author Type: (none) Type: Plan of Care Filed: 09/06/2017 1:47 PM Note Text: Pharmacy Discharge Medication Service: This patient has elected to receive their discharge prescriptions through the [facility] Bedside Prescription Delivery program. The prescriptions are currently being processed. A follow-up note will be entered once the prescriptions have been filled and delivered to the patient. Please contact me with any questions or updates to the patient's discharge medications. Geraldine Lazar ([employer]) DCT Contact Info: [id number] PROGRESS Observed: 09/06/2017 Status: COMPLETED Source: [place] 12:38 PM [facility] REPOSITORY HNO ID: [id number] Author: Ignacio Novak Service: Hospital Medicine Author Type: Physician Type: Progress Notes Filed: 09/06/2017 2:06 PM Note Text: Medicine [place] - Vipul Marie Progress Note PATIENT NAME: Paloma Cannon Brief Plan for Today - PLEX session today - Discharge home today on daptomycin - Restart coumadin this PM at 7.5 mg with INR check and readjustment on Monday - Bridging with fondaparinux out patient with 2.5 mg d/t low platelets Interval History No acute events overnight, afebrile, HDS, Labs and micro reviewed INR: 1.4, starting on coumadin 7.5mg tonight at home along with bridging with Fondaparinux 2.5 mg (instead of 7.5 mg d/t low platelets of 33k). Patient will bridge at home, and follow up with INR on Monday and Monday. Spoek to Vascular Medicine RN Paulette Naranjo and she will follow the INR and coumadin for her. Medications Current Facility-Administered Medications: sodium citrate 4% 3-6 mL catheter lock 3-6 mL INTRALUMINAL APHERESIS PRN diphenhydrAMINE 50 mg injection (BENADRYL) 50 mg INTRAVENOUS APHERESIS PRN fondaparinux 2.5 mg injection (ARIXTRA) 2.5 mg SUBCUTANEOUS q [address] 40 mg tab(s) (PROTONIX) 40 mg ORAL DAILY (6 AM) HYDROmorphone 0.5 mg injection (DILAUDID) 0.5 mg INTRAVENOUS q 6 H PRN DAPTOmycin 400 mg in NaCl (PF) 0.9% 8 mL (CUBICIN) 400 mg INTRAVENOUS q 24 HR diphenhydrAMINE 25 mg in D5W 50 mL 25 mg INTRAVENOUS PRN prochlorperazine 5 mg injection (COMPAZINE) 5 mg INTRAVENOUS q 4 H PRN metroNIDAZOLE 500 mg PREMIX piggyback (FLAGYL) 500 mg INTRAVENOUS q 8 H sulfamethoxazole-trimethoprim 800-160 mg 1 tablet (BACTRIM DS,SEPTRA DS) 1 tablet ORAL - gabapentin 300 mg cap(s) (NEURONTIN) 300 mg ORAL q 8 H predniSONE 10 mg tab(s) (DELTASONE) 10 mg ORAL DAILY 0.9% NaCl 10 mL 10 mL INTRAVENOUS q 12 H 0.9% NaCl 20 mL 20 mL INTRAVENOUS PRN warfarin order for discharge OTHER PRN Physical Exam BP 131/63 Pulse 97 Temp 36.6 ?C (97.8 ?F) (Oral) Resp 18 Ht 160 cm (5' 2.99) Wt 98.5 kg (217 lb 2.5 oz) SpO2 97% BMI 38.48 kg/m2 General: No acute distress Neck: No JVD. Supple Lungs: Clear lungs without rhonchi, rales, wheezing Heart: Regular rate and rhythm. S1+S2 with no added sounds or murmurs. Abdomen: Soft abdomen, non tender with no visceromegaly Extremities: No edema. 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 ? 1) MRSE + E faecalis BSI attributed to tunneled catheter treated with 6 weeks of iv daptomycin in 02/02. Microbiology data: 09/01: blood x 2 NGTD 08/30: blood Jesus Alberto cath x 2 GPC clusters and E faecalis 08/28: blood x 2 NGTD 08/26: blood catheter MRSE, blood peripheral NGTD 08/25 blood x 2 E faecalis and now MRSE 2 of 2 sets from and periphery 08/25: stool C diff Prior adverse reaction to vancomycin - CAPRICE Culture from Samantha and Johnny catheter - Both catheters removed Plan: 1. Continue daptomycin to 6 mg/kg daily till 09/10/2017 ? 2) C difficile Colitis Multiple bouts of diarrhea on presentation, C difficile assay positive Plan: - Continue flagyl 500 mg TID for C diff x 14 days - last day 09/09/2017 - Continue contact precautions ? 3) Pancytopenia 2/2 to cytoxan which has been discontinued per heme recs Has fluctuating counts, low plts Plan: - Monitor counts - Hold cyclophosohamide -If patient's ANC falls below 500 with give one dose of Neupogen daily until the ANC is greater than 500 and then intermittently as needed. 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 stents and Endoglix AFX endograft at the inferior vena caval bifurcation) on warfarin,?extensive thrombectomy at outside hospital for right lower extremity and IVC thrombus Subtherapeutic INR Heparin not an option due to HIT Warfarin not an option due to anticipated line removal and placement in next few days Plan: - Appreciate vascular medicine recommendations As her Cr is currently normal, reasonable to use fondaparinux to avoid need for bival (IV access difficult as lines are being removed, and frequent lab draws). OK to use prophy dose fondaparinux 2.5mg SC QD as outlined above prior to procedure. After lines are replaced and no additional procedures are planned, then would anticipate bridging back to warfarin using full therapeutic fondaparinux 7.5mg QD. Monitor for bleeding. - Restart coumadin + jef bridging; continue bridging out patient Other: Diet: Regular GI AND DVT Prophylaxis: fondaparinux 2.5mg SC QD PT/OT Disposition Recs: N/A Code Status: Full code ? Emelia Liu MD PGY-1 Internal Medicine [id number] September 06, 2017 12:[address] FRED STONE, SR. HOSPITAL STAFF PHYSICIAN NOTE OF PERSONAL INVOLVEMENT IN CARE I have reviewed the progress note obtained and documented by the resident and I personally participated in the fernandes components. I have discussed the case and management of the patient's care. The following comments revise or confirm relevant frenandes components of their note. IMPRESSION: 27 year old female with catastrophic APLS who presents w/ MRSE + e fecalis CLABSI, c dif colitis and CAPRICE necessitating line removal and IV Abx. ?? PLAN:?Clinically doing well. ?PLEX today.?Continue to hold cyclophosphamide given pancytopenia. ?Continue flagyl for C diff and daptomycin for MRSE bacteremia. ?D/C today. Bridge to warfarin via fondaparinaux as outpatient. SIGNATURE: Ignacio Novak MD PAGER: [phone] DATE of SERVICE: September 06, 2017 TIME of SERVICE: 2:05 PM CONSULT PROG Observed: 09/06/2017 Status: COMPLETED Source: [place] 11:07 AM [facility] REPOSITORY HNO ID: [id number] Author: Paulette Naranjo Service: Vascular Medicine Author Type: Nurse Practitioner Type: Consult Progress Note Filed: 09/06/2017 11:14 AM Note Text: [facility]AS[facility]ED CONSULT PROGRESS NOTE Subjective Follow Up Regarding: APS, remote hx of HIT INTERVAL HPI and PERTINENT ROS: INR 1.4 hgb 7.5 platelets 33 S: Sitting up in bed, legs are stable. line placement in IR yesterday. PLEX going today. Had episode of hemoptysis yesterday afternoon. No recurrent events this am. Current Facility-Administered Medications: calcium gluconate 3 g in NaCl 0.9% 1,000 mL 3 g INTRAVENOUS APHERESIS albumin (5%) 50 g infusion 1,000 mL INTRAVENOUS APHERESIS sodium citrate 4% 3-6 mL catheter lock 3-6 mL INTRALUMINAL APHERESIS PRN diphenhydrAMINE 50 mg injection (BENADRYL) 50 mg INTRAVENOUS APHERESIS PRN hydrocortisone sodium succinate (PF) 100 mg injection (Solu- CORTEF) 100 mg INTRAVENOUS APHERESIS PRN fondaparinux 2.5 mg injection (ARIXTRA) 2.5 mg SUBCUTANEOUS q [address] 40 mg tab(s) (PROTONIX) 40 mg ORAL DAILY (6 AM) HYDROmorphone 0.5 mg injection (DILAUDID) 0.5 mg INTRAVENOUS q 6 H PRN DAPTOmycin 400 mg in NaCl (PF) 0.9% 8 mL (CUBICIN) 400 mg INTRAVENOUS q 24 HR diphenhydrAMINE 25 mg in D5W 50 mL 25 mg INTRAVENOUS PRN prochlorperazine 5 mg injection (COMPAZINE) 5 mg INTRAVENOUS q 4 H PRN metroNIDAZOLE 500 mg PREMIX piggyback (FLAGYL) 500 mg INTRAVENOUS q 8 H sulfamethoxazole-trimethoprim 800-160 mg 1 tablet (BACTRIM DS,SEPTRA DS) 1 tablet ORAL MO-WE- gabapentin 300 mg cap(s) (NEURONTIN) 300 mg ORAL q 8 H predniSONE 10 mg tab(s) (DELTASONE) 10 mg ORAL DAILY 0.9% NaCl 10 mL 10 mL INTRAVENOUS q 12 H 0.9% NaCl 20 mL 20 mL INTRAVENOUS PRN warfarin order for discharge OTHER PRN Objective PHYSICAL EXAM: BP 141/75 Pulse 100 Temp 36.4 ?C (97.5 ?F) (Oral) Resp 20 Ht 160 cm (5' 2.99) Wt 98.5 kg (217 lb 2.5 oz) SpO2 98% BMI 38.48 kg/m2 General: alert and oriented x3 Cardiac: RRR Respiratory: clear B/L Abdominal/GI: soft, non-tender Extremity:B/L trace edema w/chronic skin changes Skin: warm, dry Pulse/vascular exam: right + 2 rad/dp left + 2 rad/dp DATA: Diagnostic tests reviewed for today's visit: Most recent labs and imaging results. 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 Other pertinent past medical history include HF and CKD. Her warfarin is followed by [facility] given her APS. Dr. Andujar manages her APS/plasmapheresis scheduling. She presented on 08/25 w/high fevers, n/v and intolerance to PO. ? She was found to have positive blood cultures and positive c diff. In addition she was neutropenic in the setting of recently starting Cytoxan for her hx of DAH which is now being held in light of her BSI and neutropenia. ? was consulted for subtherapeutic INR and hx of HIT. Estimated Creatinine Clearance: 85.9 mL/min (based on Cr of 1.09). Pt w/pancytopenia, in setting of cytoxan which has now been held. Also on daptomycin for IV antibiotics. Platelets slightly down today to 33. Pt w/episode of hemoptysis yesterday afternoon, currently undergoing PLEX this am. Plan discussed w/Dr. Mckinnon: given her pancytopenia and platelets 33 recommend decrease back to Fondaparinux 2.5 mg SC daily warfarin 7.5 mg daily check INR on Monday at [facility] w/results faxed to [facility] (they have a standing order) Monday will get another INR and CBC to monitor platelet counts SIGNATURE: Paulette Naranjo CNP PATIENT NAME: Paloma Cannon DATE: September 06, 2017 TIME: 11:08 AM PAGER/CONTACT #: [phone] . PROCEDURE Observed: 09/06/2017 Status: COMPLETED Source: [place] 9:47 AM [facility] REPOSITORY O ID: [id number] Author: Lisseth Claudio MD Service: Apheresis Author Type: Physician Type: Procedures Filed: 09/06/2017 2:09 PM Note Text: APHERESIS THERAPEUTIC PROCEDURE NOTE SERVICE DATE: 09/06/2017 SERVICE TIME: 939 TREATMENT #: [id number]. Pre-treatment labs drawn: No PLAN Next treatment- Monday09/18/16 : 1990 Age: [age] year old Gender: female Patient identification confirmed patient, birthdate and MRN Apheresis Requested By: Hematology Diagnosis: CAPS Treatment Procedure: Plasmapheresis Protocol: N/A LABS Recent Labs 09/06/17 0540 09/05/17 0439 WBC 2.02* 1.80* HB 7.5* 8.0* HCT 24.6* 26.5* PLT 33* 42* INR 1.4* 1.3 APTT 35.8* 34.0* CREAT 1.09* 1.01* MG -- 1.6* INTERVAL HISTORY: Patient reports feeling well. No questions at this time. PRE-TREATMENT BP 141/75 Pulse 100 Temp 36.4 ?C (97.5 ?F) (Oral) Resp 20 Ht 160 cm (5' 2.99) Wt 98.5 kg (217 lb 2.5 oz) SpO2 98% BMI 38.48 kg/m2 Treatment performed at: Unit/Bed- G081 023/G081-23 Date: 09/06/2017 Catheter Site Dressing: Dry and intact. Venous access: left red port of SC double lumen catheter, venous return: left blue port of SC double lumen catheter. PRE-MEDICATION diphenhydramine 50mg IV and hydrocortisone 100mg IV TREATMENT PARAMETER DATA Whole blood processed: 7442 ml Volume removed: 4062 ml Volume replaced: Albumin 1000 ml, NSS 1000 ml and FFP 1551 ml ACD to patient: 78 ml Calcium gluconate 10%: 30 ml Extra fluids: None Net fluid balance: +25 ml POST-TREATMENT Vital signs: BP 131/63 HR 18 RR 18 TEMP 97.8F Labs Drawn: None At completion of treatment: Lumens flushed with 10 ml NSS and with 3 ml 4% sodium citrate Patient tolerated treatment well without complications: Yes Patient instructed to continue abundant oral fluids. Report given to unit nurse. Patient remains in hospital bed. Treatment Started by Apheresis Nurse: Lou Juarez RN Treatment Completed by Apheresis Nurse: Lou Juarez RN DR. [facility], [facility]. HOSPITAL STAFF PHYSICIAN NOTE OF PERSONAL INVOLVEMENT IN CARE Ms. Aiken tolerated the treatment without any acute events. Her next plasma exchange will be in 2 weeks in the apheresis unit. Will continue to coordinate with Dr. Andujar. I reviewed the patients labs, medications and allergies prior to proceeding with this therapeutic treatment and discussed the case and parameters with the apheresis nurse. I have reviewed this therapeutic progress note documented by the apheresis nurse. I personally participated in all pertinent aspects and fernandes components of the therapeutic treatment. I was present during the treatment. Signature: Lisseth Claudio MD September 06, 2017 2:08 PM Pager: [phone] NURSING PROG Observed: 09/06/2017 Status: COMPLETED Source: [place] 7:43 AM [facility] REPOSITORY O ID: [id number] Author: Denise (Jeff) Timo Huffman RN Service: (none) Author Type: Registered Nurse Type: Nursing Progress Note Filed: 09/06/2017 2:25 PM Note Text: Nursing Progress Note Topic of Note: Daily Note Paloma Aiken Davis [id number] Patient sleeping in bed. Patient to have, PLEX this morning, and then possible discharge today. No other issues noted at this time, will continue to monitor. Patient with IPC orders, and refusing to wear them. Patient explained the risks and benefits of not, patient verbalized an understanding.[id number] Patient's dressing changed to her SAMANTHA and plasma pheresis catheter. Patient given discharge papers and prescriptions, verbalized a good understanding. No other issues noted at this time. This note was completed by: Denise Huffman RN PROTIME Collected: 09/06/2017 Status: F Source: [place] 5:40 AM [facility] REPOSITORY TYPE CODE TESTS RESULT OUT OF RANGE REFERENCE UNITS LAB PSEC 9.7-13.0 sec High PT Sec 13.9 LAB INR 0.9-1.3 High PT INR 1.4 Result Comment: Vitamin K Antagonist (VKA) Therapeutic Range: INR 2 to 3 (Target INR of 2.5) Note: For patients treated with VKA drugs, such as warfarin, the [employer] 2012 Guideline recommends a therapeutic INR range of 2 to 3 (target INR of 2.5). This recommendation includes high-risk patients with antiphospholipid syndrome with previous arterial or venous thromboembolism, current-generation mechanical or bioprosthetic aortic heart valve replacement. Note: Patients with mechanical aortic valve replacement and additional risk factors for thromboembolic events (atrial fibrillation, previous thromboembolism, LV dysfunction, hypercoagulable conditions) or an older generation mechanical AVR (i.e., ball in-Cage) or any mechanical MVR should have a INR therapeutic range of 2.5 to 3.5 (target INR of 3). Michael GH, et al. Chest 2012, 141:7S-47S Diogenes RA, et al. [facility] 2017, 70: 252-289 Performed By: #### PT, PTT, CK, CRET1, CBCDIF #### [facility] [address] [address] APTT Collected: 09/06/2017 Status: F Source: [place] 5:40 AM [facility] REPOSITORY TYPE CODE TESTS RESULT OUT OF RANGE REFERENCE UNITS LAB APTT 23.0-32.4 sec High APTT 35.8 Result Comment: Unfractionated Heparin Therapeutic Ranges: Standard Heparin Nomogram: 53 to 78 seconds (anti-Xa level of 0.3 to 0.7 U/ml) Low Dose/ACS Nomogram: 49 to 67 seconds (anti-Xa level of 0.2 to 0.5 U/ml) Stroke Treatment Nomogram: 49 to 67 seconds (anti-Xa level of 0.2 to 0.5 U/ml) Note: The APTT therapeutic range has been determined for the current lot of laboratory APTT reagent in use throughout the [facility]. Performed By: #### PT, PTT, CK, CRET1, CBCDIF #### [facility] [address] [place], [place] [address] CK Collected: 09/06/2017 Status: F Source: [facility] 5:40 AM [facility] REPOSITORY TYPE CODE TESTS RESULT OUT OF RANGE REFERENCE UNITS LAB CK 42-196 U/L Low CK 15 Result Comment: Please note the updated, gender-specific reference range for this test (effective 06/23/2016). Performed By: #### PT, PTT, CK, CRET1, CBCDIF #### [facility] [address] [place], [place] [address] CREATININE Collected: 09/06/2017 Status: F Source: [place] 5:40 AM [facility] REPOSITORY TYPE CODE TESTS RESULT OUT OF REFERENCE UNITS RANGE LAB CRET 0.58-0.96 mg/dL High Creatinine 1.09 LAB GFRAA eGFR- >60 Amer. LAB GFRNAA . eGFR-All Other Races 60 Result Comment: eGFR (Estimated GFR) Units of measure: mL/min/1.73 meters squared eGFR is derived from the reexpressed MDRD Study equation using the following parameters: serum creatinine, age, gender and race. The creatinine assay has been calibrated to be traceable to IDMS. An eGFR <60 mL/min/1.73m2 for >3 months is consistent with chronic kidney disease. Refer to KDOQI guidelines for clinical interpretation. In patients with unstable renal function, e.g. those with acute kidney injury, the eGFR may not accurately reflect actual GFR. Performed By: #### PT, PTT, CK, CRET1, CBCDIF #### [facility] [address] [place], [place] [address] CBC AND DIFFERENTIAL Collected: 09/06/2017 Status: F Source: [place] 5:40 AM [facility] REPOSITORY TYPE CODE TESTS RESULT OUT OF REFERENCE UNITS RANGE LAB WBC 3.70-11.00 k/uL Low WBC 2.02 LAB RBC 3.90-5.20 m/uL Low RBC 2.84 LAB HGB 11.5-15.5 g/dL Low Hemoglobin 7.5 LAB HCT 36.0-46.0 % Low Hematocrit 24.6 LAB MCV 80.0-100.0 fL MCV 86.6 LAB MCH 26.0-34.0 pG MCH 26.4 LAB MCHC 30.5-36.0 g/dL MCHC 30.5 LAB RDWCV 11.5-15.0 % RDW-CV High 22.3 LAB PLTCT 150-400 k/uL Low Platelet Count 33 Result Comment: Result checked and verified No clot detected. LAB MPV 9.0-12.7 fL MPV <<DO NOT REPORT>> LAB ANEUT % Neut% 66.9 LAB AANEUT 1.45-7.50 k/uL Abs 1.34 Low Neut LAB ALYMP % 17.3 Lymph% LAB AALYMP 1.00-4.00 k/uL Abs 0.35 Low Lymph LAB AMONO % [place]% 8.9 LAB AAMONO <0.87 k/uL Abs 0.18 [place] LAB AEOS % 5.4 Eosin% LAB AAEOS <0.46 k/uL Abs 0.11 Eosin LAB ABASO % Baso% 1.5 LAB AABASO <0.11 k/uL Abs 0.03 Baso LAB AUNRBC 0 /100 WBC NRBCs 0.0 LAB ABNRBC <0.01 k/uL <0.01 Absolute nRBC LAB DTYP DTYPE Auto Diff Performed By: #### PT, PTT, CK, CRET1, CBCDIF #### [facility] [address] [place], [place] [address] PROGRESS Observed: 09/05/2017 Status: COMPLETED Source: [place] 11:05 [facility] REPOSITORY HNO ID: [id number] Author: Ignacio Novak Service: Hospital Medicine Author Type: Physician Type: Progress Notes Filed: 09/05/2017 12:26 PM Note Text: [facility] - Vipul Marie Progress Note PATIENT NAME: Paloma Cannon Brief Plan for Today - TDC and Samantha placement today - PLEX session tomorrow - Discharge on Daptomycin for another 7 days, tomorrow vs 09/07 - Restart coumadin with fondaparinux bridging today after procedure Interval History No acute events overnight, afebrile, HDS, Labs and micro reviewed INR: 1.3 Medications Current Facility-Administered Medications: pantoprazole DR 40 mg tab(s) (PROTONIX) 40 mg ORAL DAILY (6 AM) HYDROmorphone 0.5 mg injection (DILAUDID) 0.5 mg INTRAVENOUS q 6 H PRN DAPTOmycin 400 mg in NaCl (PF) 0.9% 8 mL (CUBICIN) 400 mg INTRAVENOUS q 24 HR diphenhydrAMINE 25 mg in D5W 50 mL 25 mg INTRAVENOUS PRN prochlorperazine 5 mg injection (COMPAZINE) 5 mg INTRAVENOUS q 4 H PRN metroNIDAZOLE 500 mg PREMIX piggyback (FLAGYL) 500 mg INTRAVENOUS q 8 H sulfamethoxazole-trimethoprim 800-160 mg 1 tablet (BACTRIM DS,SEPTRA DS) 1 tablet ORAL -WE- gabapentin 300 mg cap(s) (NEURONTIN) 300 mg ORAL q 8 H predniSONE 10 mg tab(s) (DELTASONE) 10 mg ORAL DAILY 0.9% NaCl 10 mL 10 mL INTRAVENOUS q 12 H 0.9% NaCl 20 mL 20 mL INTRAVENOUS PRN warfarin order for discharge OTHER PRN Physical Exam BP 126/66 Pulse 95 Temp 37.3 ?C (99.1 ?F) (Temporal Artery) Resp 17 Ht 160 cm (5' 2.99) Wt 95.1 kg (209 lb 9.6 oz) SpO2 94% BMI 37.14 kg/m2 General: No acute distress Neck: No JVD. Supple Lungs: Clear lungs without rhonchi, rales, wheezing Heart: Regular rate and rhythm. S1+S2 with no added sounds or murmurs. Abdomen: Soft abdomen, non tender with no visceromegaly Extremities: No edema. 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 ? 1) MRSE + E faecalis BSI attributed to tunneled catheter treated with 6 weeks of iv daptomycin in 02/02. Microbiology data: 09/01: blood x 2 NGTD 08/30: blood Jesus Alberto cath x 2 GPC clusters and E faecalis 08/28: blood x 2 NGTD 08/26: blood catheter MRSE, blood peripheral NGTD 08/25 blood x 2 E faecalis and now MRSE 2 of 2 sets from and periphery 08/25: stool C diff Prior adverse reaction to vancomycin - CAPRICE Culture from Samantha and Johnny catheter - Both catheters removed Plan: 1. Continue daptomycin to 6 mg/kg daily 2. Place Samantha and TDC ? 2) C difficile Colitis Multiple bouts of diarrhea on presentation, C difficile assay positive Plan: - Continue flagyl 500 mg TID for C diff x 14 days - last day 09/09/2017 - Continue contact precautions ? 3) Pancytopenia 2/2 to cytoxan which has been discontinued per heme recs Has fluctuating counts, low plts Plan: - Monitor counts - Hold cyclophosohamide -If patient's ANC falls below 500 with give one dose of Neupogen daily until the ANC is greater than 500 and then intermittently as needed. 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 stents and Endoglix AFX endograft at the inferior vena caval bifurcation) on warfarin,?extensive thrombectomy at outside hospital for right lower extremity and IVC thrombus Subtherapeutic INR Heparin not an option due to HIT Warfarin not an option due to anticipated line removal and placement in next few days Plan: - Appreciate vascular medicine recommendations As her Cr is currently normal, reasonable to use fondaparinux to avoid need for bival (IV access difficult as lines are being removed, and frequent lab draws). OK to use prophy dose fondaparinux 2.5mg SC QD as outlined above prior to procedure. After lines are replaced and no additional procedures are planned, then would anticipate bridging back to warfarin using full therapeutic fondaparinux 7.5mg QD. Monitor for bleeding. - Restart coumadin + jef bridging; continue bridging out patient Other: Diet: Regular GI AND DVT Prophylaxis: fondaparinux 2.5mg SC QD PT/OT Disposition Recs: N/A Code Status: Full code ? mEelia Liu MD PGY-1 Internal Medicine [id number] September 05, 2017 11:[address] [facility]PITAL STAFF PHYSICIAN NOTE OF PERSONAL INVOLVEMENT IN CARE I have reviewed the progress note obtained and documented by the resident and I personally participated in the fernandes components. I have discussed the case and management of the patient's care. The following comments revise or confirm relevant fernandes components of their note. IMPRESSION: 27 year old female with catastrophic APLS who presents w/ MRSE + e fecalis CLABSI, c dif colitis and CAPRICE necessitating line removal and IV Abx. ? PLAN: Clinically doing well. Line replacement today, PLEX tomorrow. Continue to hold cyclophosphamide given pancytopenia. Continue flagyl for C diff and daptomycin for MRSE bacteremia. D/C planning. Resume therapeutic fondaparinaux after line placement. ? SIGNATURE: Ignacio Novak MD PAGER: [phone] DATE of SERVICE: September 05, 2017 TIME of SERVICE: 12:25 PM THERAPY NT Observed: 09/05/2017 Status: COMPLETED Source: [place] 10:25 AM [facility] REPOSITORY HNO ID: [id number] Author: Alondra Campa Service: Physical Therapy Author Type: Physical Therapist Type: Therapy (PT/OT/Speech/Resp) Filed: 09/05/2017 10:26 AM Note Text: PHYSICAL THERAPY MISSED VISIT SERVICE DATE: 09/05/2017 SERVICE TIME: 1024 to 1024 ROOM: [place] [address] Attempted Evaluation. Patient not seen due to pt evaluated on 08/30 by PT and 09/02 by OT. Per RN and CM pt is still IND and still has no skilled therapy needs. PT discontinuing services at this time. SIGNATURE: Alondra Campa PT PATIENT NAME: Paloma Cannon DATE: September 05, 2017 TIME: 10:25 AM PAGER/CONTACT #: [phone] BRIEF OP NOT Observed: 09/05/2017 Status: COMPLETED Source: [place] 9:16 AM [facility] REPOSITORY HNO ID: [id number] Author: Cara De Leon Service: Interventional Radiology Author Type: Resident Type: Brief Op Note Filed: 09/05/2017 9:19 AM Note Text: BRIEF OPERATIVE / PROCEDURE NOTE LOG ID: [id number] Surgery/Procedure Date: 09/05/2017 Incision/Procedure Start Time: 8:29 AM Incision Close/Procedure End Time: 9:10 AM Surgeon(s)/Proceduralist(s) and Satellite Tv Technician Installer(s): Surgeon(s) and Role: * Adis Munoz - Primary No Additional Staff Procedure(s): L EJ tunneled single lumen Samantha placement, L IJ tunneled dialysis/pheresis catheter placement Anesthesia: Local Findings: patent L EJ and L IJ. Successful line placement. Estimated Blood Loss: minimal Specimens: None Complications: None Pre-Op/Pre-Procedure Diagnosis: Previous central venous catheter infection requiring antibiotics, anti phospholipid syndrome requiring plasmapheresis. Post-Op/Post-Procedure Diagnosis: same SIGNATURE: Cara De Leon MD PATIENT NAME: Paloma Cannon DATE: September 05, 2017 TIME: 9:16 AM PAGER/CONTACT #: [phone] IR CENTRAL CATH Observed: 09/05/2017 Status: F Source: [place] 9:10 AM [facility] REPOSITORY * * *Final Report* * * DATE OF EXAM: Sep 05 2017 9:10AM [facility] 8020 - IR CENTRAL CATH PLACEMENT / PROCEDURE REASON: APS (antiphospholipid syndrome) (HCC) * * * * Physician Interpretation * * * * PROCEDURE: Tunneled central venous catheter placement and pheresis catheter placement. Procedural Personnel Attending(s): Adis Munoz M.D. Satellite Tv Technician Installer(s): Fellow(s): None Resident(s): Cara De Leon MD Advanced practice provider(s): None Medical Student(s): None Pre-procedure diagnosis: Antiphospholipid syndrome Post-procedure diagnosis: Same Indication(s): Performance of plasmapheresis and medication use Additional clinical history: None PROCEDURE DETAILS: Pre-procedure History and imaging of central venous access reviewed (QCDR): Yes Consent: Risks, benefits, treatment options, potential complications and personnel to be involved were discussed (including the risks of radiation exposure, contrast and anesthesia administration, and any equipment needed for the procedure to ensure best possible outcome) with the patient and all questions were answered and consent was obtained prior to procedure. Medication reconciliation: The patient's medications and allergies were reviewed in the electronic medical record and reconciled to the proposed procedure/treatment. Daxa-procedure discussion: The appropriate elements of the pre-procedure discussion, safety check list and sign-out were performed. Time out: A time out was performed immediately prior to procedure start with the nursing and interventional team, correctly identifying the name, date of , procedure, anatomy (including marking of site and side if applicable), patient position, procedure consent form, relevant diagnostic and radiology test results, antibiotic administration if applicable, safety precautions, and procedure-specific equipment needs. Start of procedure: 828 End of procedure: 909 Antibiotics: None Antibiotic infusion start time: N/A Prophylactic antibiotic administered: None Preparation (MIPS) Patient position: Supine The site was prepared and draped using all elements of maximal sterile barrier technique including sterile gloves, sterile gown, cap, mask, large sterile sheet, sterile ultrasound probe cover, hand hygiene and cutaneous antisepsis with 2% chlorhexidine. Medical reason for site preparation exception (MIPS): Not applicable Anesthesia/sedation Level of anesthesia/sedation: Moderate sedation (conscious sedation) Anesthesia Medications: Versed and Fentanyl Intra-service time (monitoring for moderate sedation): 53 minutes Patient monitoring: I personally supervised and directed an independent trained observer who assisted in monitoring the patient?s level of consciousness and physiological status throughout the procedure. Local anesthesia: 2 % lidocaine Access The vessel was sonographically evaluated and judged appropriate for access. Real time ultrasound was used to visualize needle entry into the vessel and a permanent image was stored. Vein accessed: Left Internal jugular vein used for pheresis catheter placement. Left external jugular vein used for Samantha catheter placement. Access vein ultrasound findings: Patent Access technique: 4F micropuncture set Venography Indication for venography: Not performed Catheter tip position for venography: Not applicable Venous segment imaged: Not applicable Findings: Not applicable Catheter placement An incision was made in the upper chest and the catheter was tunneled subcutaneously to the venous access site. The catheter was trimmed to appropriate length and advanced via a peel-away sheath into the vein under fluoroscopic guidance. Catheter tip location was fluoroscopically verified and a permanent image was stored. Catheter placed: 5 F Bard Powerline single lumen CT injectable Samantha catheter Catheter trim length: 25 Catheter tip position: Cavoatrial junction An second incision was made in the upper chest and the catheter was tunneled subcutaneously to the venous access site. The catheter was not trimmed and advanced via a peel-away sheath into the vein under fluoroscopic guidance. Catheter tip location was fluoroscopically verified and a permanent image was stored. Catheter placed: 19 cm 14.5 F Equistream hemodialysis catheter Catheter trim length: Not applicable Catheter tip position: Cavoatrial junction Unique Device Identifier (THAI): Not available Catheter flush: Normal saline for the Samantha catheter and citrate for the pheresis catheter Closure Access site closure technique: Absorbable suture and tissue adhesive Catheter securement technique: 2-0 Prolene purse string suture Sterile dressing(s) applied. The [facility] Central Line Insertion checklist, attached to the Central Line-Associated Bloodstream Infection Prevention Policy, was utilized during this procedure. Contrast Contrast agent: 0 Contrast volume: 0 mL Route of Administration: Venous system Radiation Dose Fluoroscopy time: 1:06 minutes Reference air kerma: 4.3 mGy Kerma area product: 720.0 mGy*cm2 Radiation dose exceed 5 Gy: No If radiation dose exceeded 5 Gy, was counseling and instructional brochure provided: N/A Additional Details Additional description of procedure: None Additional findings: None Equipment details: None Number and Type of Removed Specimens: 0, Not applicable Estimated blood loss: Less than 10 mL Standardized report: [id number] Result The patient tolerated the procedure well. The patient was comfortable and was transferred to the recovery room in stable condition. Complications: There were no significant complications and no other complications during the procedure. Attestation I attest that the procedure was performed by the attending radiologist, with an child nutrition assistant. The attending radiologist performed the following procedural activities: External jugular vein puncture and catheter tunneling and positioning I reviewed the stored images and agree with the report as written. IMPRESSION: TECHNICALLY SUCCESSFUL INSERTION OF RIGHT-SIDED SUPRADIAPHRAGMATIC DUAL-LUMEN TUNNELED DIALYSIS CATHETER, WITH TIP IN THE EXPECTED LOCATION OF THE CAVOATRIAL JUNCTION. TECHNICALLY SUCCESSFUL INSERTION OF RIGHT-SIDED SUPRADIAPHRAGMATIC SINGLE-LUMEN TUNNELED SAMANTHA CATHETER, WITH TIP IN THE EXPECTED LOCATION OF THE CAVOATRIAL JUNCTION. THE CATHETERS MAY BE USED IMMEDIATELY. Practice Support Specialist: PSCB Transcribe Date/Time: Sep 05 2017 9:42A Dictated by : ADIS MUNOZ MD This examination was interpreted and the report reviewed and electronically signed by: ADIS MUNOZ MD on Sep 05 2017 9:46AM EST [id number] IR DIALYSIS CATH Observed: 09/05/2017 Status: F Source: [place] 9:10 AM [facility] REPOSITORY * * *Final Report* * * DATE OF EXAM: Sep 05 2017 9:10AM [facility] 8021 - IR DIALYSIS CATH PLACEMENT / PROCEDURE REASON: APS (antiphospholipid syndrome) ([facility]) * * * * Physician Interpretation * * * * PROCEDURE: Tunneled central venous catheter placement and pheresis catheter placement. Procedural Personnel Attending(s): Adis Munoz M.D. Satellite Tv Technician Installer(s): Fellow(s): None Resident(s): Cara De Leon MD Advanced practice provider(s): None Medical Student(s): None Pre-procedure diagnosis: Antiphospholipid syndrome Post-procedure diagnosis: Same Indication(s): Performance of plasmapheresis and medication use Additional clinical history: None PROCEDURE DETAILS: Pre-procedure History and imaging of central venous access reviewed (QCDR): Yes Consent: Risks, benefits, treatment options, potential complications and personnel to be involved were discussed (including the risks of radiation exposure, contrast and anesthesia administration, and any equipment needed for the procedure to ensure best possible outcome) with the patient and all questions were answered and consent was obtained prior to procedure. Medication reconciliation: The patient's medications and allergies were reviewed in the electronic medical record and reconciled to the proposed procedure/treatment. Daxa-procedure discussion: The appropriate elements of the pre-procedure discussion, safety check list and sign-out were performed. Time out: A time out was performed immediately prior to procedure start with the nursing and interventional team, correctly identifying the name, date of , procedure, anatomy (including marking of site and side if applicable), patient position, procedure consent form, relevant diagnostic and radiology test results, antibiotic administration if applicable, safety precautions, and procedure-specific equipment needs. Start of procedure: 828 End of procedure: 909 Antibiotics: None Antibiotic infusion start time: N/A Prophylactic antibiotic administered: None Preparation (MIPS) Patient position: Supine The site was prepared and draped using all elements of maximal sterile barrier technique including sterile gloves, sterile gown, cap, mask, large sterile sheet, sterile ultrasound probe cover, hand hygiene and cutaneous antisepsis with 2% chlorhexidine. Medical reason for site preparation exception (MIPS): Not applicable Anesthesia/sedation Level of anesthesia/sedation: Moderate sedation (conscious sedation) Anesthesia Medications: Versed and Fentanyl Intra-service time (monitoring for moderate sedation): 53 minutes Patient monitoring: I personally supervised and directed an independent trained observer who assisted in monitoring the patient?s level of consciousness and physiological status throughout the procedure. Local anesthesia: 2 % lidocaine Access The vessel was sonographically evaluated and judged appropriate for access. Real time ultrasound was used to visualize needle entry into the vessel and a permanent image was stored. Vein accessed: Left Internal jugular vein used for pheresis catheter placement. Left external jugular vein used for Samantha catheter placement. Access vein ultrasound findings: Patent Access technique: 4F micropuncture set Venography Indication for venography: Not performed Catheter tip position for venography: Not applicable Venous segment imaged: Not applicable Findings: Not applicable Catheter placement An incision was made in the upper chest and the catheter was tunneled subcutaneously to the venous access site. The catheter was trimmed to appropriate length and advanced via a peel-away sheath into the vein under fluoroscopic guidance. Catheter tip location was fluoroscopically verified and a permanent image was stored. Catheter placed: 5 F Bard Powerline single lumen CT injectable Samantha catheter Catheter trim length: 25 Catheter tip position: Cavoatrial junction An second incision was made in the upper chest and the catheter was tunneled subcutaneously to the venous access site. The catheter was not trimmed and advanced via a peel-away sheath into the vein under fluoroscopic guidance. Catheter tip location was fluoroscopically verified and a permanent image was stored. Catheter placed: 19 cm 14.5 F Equistream hemodialysis catheter Catheter trim length: Not applicable Catheter tip position: Cavoatrial junction Unique Device Identifier (THAI): Not available Catheter flush: Normal saline for the Samantha catheter and citrate for the pheresis catheter Closure Access site closure technique: Absorbable suture and tissue adhesive Catheter securement technique: 2-0 Prolene purse string suture Sterile dressing(s) applied. The [facility] Central Line Insertion checklist, attached to the Central Line-Associated Bloodstream Infection Prevention Policy, was utilized during this procedure. Contrast Contrast agent: 0 Contrast volume: 0 mL Route of Administration: Venous system Radiation Dose Fluoroscopy time: 1:06 minutes Reference air kerma: 4.3 mGy Kerma area product: 720.0 mGy*cm2 Radiation dose exceed 5 Gy: No If radiation dose exceeded 5 Gy, was counseling and instructional brochure provided: N/A Additional Details Additional description of procedure: None Additional findings: None Equipment details: None Number and Type of Removed Specimens: 0, Not applicable Estimated blood loss: Less than 10 mL Standardized report: [id number] Result The patient tolerated the procedure well. The patient was comfortable and was transferred to the recovery room in stable condition. Complications: There were no significant complications and no other complications during the procedure. Attestation I attest that the procedure was performed by the attending radiologist, with an child nutrition assistant. The attending radiologist performed the following procedural activities: External jugular vein puncture and catheter tunneling and positioning I reviewed the stored images and agree with the report as written. IMPRESSION: TECHNICALLY SUCCESSFUL INSERTION OF RIGHT-SIDED SUPRADIAPHRAGMATIC DUAL-LUMEN TUNNELED DIALYSIS CATHETER, WITH TIP IN THE EXPECTED LOCATION OF THE CAVOATRIAL JUNCTION. TECHNICALLY SUCCESSFUL INSERTION OF RIGHT-SIDED SUPRADIAPHRAGMATIC SINGLE-LUMEN TUNNELED SAMANTHA CATHETER, WITH TIP IN THE EXPECTED LOCATION OF THE CAVOATRIAL JUNCTION. THE CATHETERS MAY BE USED IMMEDIATELY. Practice Support Specialist: [facility] Transcribe Date/Time: Sep 05 2017 9:42A Dictated by : ADIS MUNOZ MD This examination was interpreted and the report reviewed and electronically signed by: ADIS MUNOZ MD on Sep 05 2017 9:46AM EST [id number] PT ED Observed: 09/05/2017 Status: COMPLETED Source: [place] 8:09 AM [facility] REPOSITORY HNO ID: [id number] Author: Haydee SanchezRnDevonte Domingo RN Service: Nursing Author Type: Registered Nurse Type: Patient Education Filed: 09/05/2017 8:15 AM Note Text: AMBULATORY PATIENT EDUCATION TOPIC: Survival Skills: SURVIVAL SKILLS: Samantha and TDC READINESS TO LEARN COGNITIVE ABILITY: Alert and oriented MOTIVATION TO LEARN: Interested FAMILY SUPPORT: Unable to assess - Family not present INSTRUCTION PROVIDED TO: Patient and Caregiver PATIENT LEARNS BEST BY: Multiple Methods FACTORS AFFECTING LEARNING: Emotional Factors: Anxious PHYSICAL LIMITATIONS AFFECTING LEARNING: None LEARNING RESPONSE DIAGNOSIS: Need IV axcess; APS METHOD OF INSTRUCTION: Individual instruction Written instruction - handouts Verbal instruction PATIENT / FAMILY RESPONSE: Information received as demonstrated by interest and questions FOLLOW-UP PLAN: Follow-up with Primary Care SUPPLEMENTAL MATERIAL: Title of written material: Tunneled central venous catheter REFERRAL (RECOMMENDATION): None Electronically Signed By: Haydee Domingo RN In Department: [facility] MA[facility] [id number] NURSING PROG Observed: 09/05/2017 Status: COMPLETED Source: [place] 8:03 AM [facility] REPOSITORY HNO ID: [id number] Author: Denise SanchezRn) Timo Huffman RN Service: (none) Author Type: Registered Nurse Type: Nursing Progress Note Filed: 09/05/2017 6:43 PM Note Text: Nursing Progress Note Topic of Note: Daily Note Paloma Cannon [id number] Patient off the floor in IR for a line placement. No other issues noted at this time, will continue to monitor.1030 Patient had a double lumen apharesis catheter placed and a single lumen SAMANTHA placed in her left chest wall. Patient was given 3 mg of versed and 150 mics of fentanyl. Last set of vitals, 100, 18, 147/70, 95% on 2 liters. No other issues noted at this time, will monitor.1830 Patient instructed on the risk and benefits of not wearing her IPC's and patient acknowledged and still refused to wear them. No other issues noted at this time, will monitor. This note was completed by: Denise Huffman RN PROTIME Collected: 09/05/2017 Status: F Source: [place] 4:39 AM [facility] [place] REPOSITORY TYPE CODE TESTS RESULT OUT OF RANGE REFERENCE UNITS LAB PSEC 9.7-13.0 sec High PT Sec 13.5 LAB INR 0.9-1.3 PT INR 1.3 Result Comment: Vitamin K Antagonist (VKA) Therapeutic Range: INR 2 to 3 (Target INR of 2.5) Note: For patients treated with VKA drugs, such as warfarin, the [place] [employer] 2012 Guideline recommends a therapeutic INR range of 2 to 3 (target INR of 2.5). This recommendation includes high-risk patients with antiphospholipid syndrome with previous arterial or venous thromboembolism, current-generation mechanical or bioprosthetic aortic heart valve replacement. Note: Patients with mechanical aortic valve replacement and additional risk factors for thromboembolic events (atrial fibrillation, previous thromboembolism, LV dysfunction, hypercoagulable conditions) or an older generation mechanical AVR (i.e., ball in-Cage) or any mechanical MVR should have a INR therapeutic range of 2.5 to 3.5 (target INR of 3). Michael GH, et al. Chest 2012, 141:7S-47S Diogenes RESENDIZ et al. [facility] 2017, 70: 252-289 Performed By: #### PT, PTT, CRET1, MG1, PHOS, CBCDIF #### [facility] [address] [place], [place] [address] APTT Collected: 09/05/2017 Status: F Source: [place] 4:39 [facility] REPOSITORY TYPE CODE TESTS RESULT OUT OF RANGE REFERENCE UNITS LAB APTT 23.0-32.4 sec High APTT 34.0 Result Comment: Unfractionated Heparin Therapeutic Ranges: Standard Heparin Nomogram: 53 to 78 seconds (anti-Xa level of 0.3 to 0.7 U/ml) Low Dose/ACS Nomogram: 49 to 67 seconds (anti-Xa level of 0.2 to 0.5 U/ml) Stroke Treatment Nomogram: 49 to 67 seconds (anti-Xa level of 0.2 to 0.5 U/ml) Note: The APTT therapeutic range has been determined for the current lot of laboratory APTT reagent in use throughout the [facility]. Performed By: #### PT, PTT, CRET1, MG1, PHOS, CBCDIF #### [facility] [address] [place], [place] [address] CREATININE Collected: 09/05/2017 Status: F Source: [place] 4:39 [facility] REPOSITORY TYPE CODE TESTS RESULT OUT OF REFERENCE UNITS RANGE LAB CRET 0.58-0.96 mg/dL High Creatinine 1.01 LAB GFRAA eGFR- >60 Amer. LAB GFRNAA . eGFR-All Other Races >60 Result Comment: eGFR (Estimated GFR) Units of measure: mL/min/1.73 meters squared eGFR is derived from the reexpressed MDRD Study equation using the following parameters: serum creatinine, age, gender and race. The creatinine assay has been calibrated to be traceable to IDMS. An eGFR <60 mL/min/1.73m2 for >3 months is consistent with chronic kidney disease. Refer to KDOQI guidelines for clinical interpretation. In patients with unstable renal function, e.g. those with acute kidney injury, the eGFR may not accurately reflect actual GFR. Performed By: #### PT, PTT, CRET1, MG1, PHOS, CBCDIF #### [facility] [address] [place], [place] [address] MAGNESIUM Collected: 09/05/2017 Status: F Source: [place] 4:39 AM [facility] REPOSITORY TYPE CODE TESTS RESULT OUT OF REFERENCE UNITS RANGE LAB MG 1.7-2.3 mg/dL Low Magnesium 1.6 Performed By: #### PT, PTT, CRET1, MG1, PHOS, CBCDIF #### [facility] [address] [place], [place] [address] PHOSPHORUS Collected: 09/05/2017 Status: F Source: [place] 4:39 [facility] REPOSITORY TYPE CODE TESTS RESULT OUT OF REFERENCE UNITS RANGE LAB PHOS 2.7-4.8 mg/dL Phosphorus 3.5 Performed By: #### PT, PTT, CRET1, MG1, PHOS, CBCDIF #### [facility] [address] [place], [place] [address] CBC AND DIFFERENTIAL Collected: 09/05/2017 Status: F Source: [place] 4:39 [facility] REPOSITORY TYPE CODE TESTS RESULT OUT OF RANGE REFERENCE UNITS LAB WBC 3.70-11.00 k/uL Low WBC 1.80 Result Comment: Result checked and verified No clot detected. LAB RBC 3.90-5.20 m/uL RBC Low 3.02 LAB HGB 11.5-15.5 g/dL Hemoglobin Low 8.0 LAB HCT 36.0-46.0 % Hematocrit Low 26.5 LAB MCV 80.0-100.0 fL MCV 87.7 LAB MCH 26.0-34.0 pG MCH 26.5 LAB MCHC 30.5-36.0 g/dL MCHC Low 30.2 LAB RDWCV 11.5-15.0 % RDW-CV High 22.4 LAB PLTCT 150-400 k/uL Platelet Count Low 42 LAB MPV 9.0-12.7 fL MPV <<DO NOT REPORT>> LAB ANEUT % Neut% 77.0 LAB AANEUT 1.45-7.50 k/uL Abs Neut Low 1.39 LAB ALYMP % Lymph% 17.0 LAB AALYMP 1.00-4.00 k/uL Abs Lymph Low 0.31 LAB AMONO % [place]% 4.0 LAB AAMONO <0.87 k/uL Abs [place] 0.07 LAB AEOS % Eosin% 1.0 LAB AAEOS <0.46 k/uL Abs Eosin 0.02 LAB ABASO % Baso% 1.0 LAB AABASO <0.11 k/uL Abs Baso 0.02 LAB ABIMMG k/uL ANC(includeSEG+BAND 1.39 ) LAB ANIIMI Anisocytosis Present LAB OVAIMI Ovalocytes Few LAB POLIMI Polychromasia Slight LAB RCFIMI RBC Fragments Few LAB TEAIMI Tear Drop Cells Few LAB DTYP DTYPE Manual Diff Performed By: #### PT, PTT, CRET1, MG1, PHOS, CBCDIF #### [facility] [address] [place], [place] [address] NURSING PROG Observed: 09/04/2017 Status: COMPLETED Source: [place] 6:29 PM [facility] REPOSITORY HNO ID: [id number] Author: Denise (Rn) Timo Huffman RN Service: (none) Author Type: Registered Nurse Type: Nursing Progress Note Filed: 09/04/2017 6:31 PM Note Text: Nursing Progress Note Topic of Note: Daily Note Paloma Cannon [id number] Patient to go to tomorrow for a samantha and tunneled dialysis catheter placement. No other issues noted at this time, will monitor. This note was completed by: Denise Huffman RN NUTRITION Observed: 09/04/2017 Status: COMPLETED Source: [place] 1:00 PM [facility] REPOSITORY HNO ID: [id number] Author: Anahi Mai (Diet-T) Service: Nutrition Therapy Author Type: Surveyor Helper Type: Nutrition Filed: 09/04/2017 1:03 PM Note Text: NUTRITION THERAPY FOLLOW-UP NOTE SERVICE DATE: 09/04/2017 SERVICE TIME: 950 Anthropometrics: Height: 160 cm (5' 2.99) Current Weight: Weight: 98.3 kg (216 lb 11.4 oz) Body mass index is 38.4 kg/(m2). Loss of lean body mass/visual muscle wasting: no Admitting Diagnosis: Fever, unspecified fever cause [R50.9] Present Diet Order: Clear Liquid Is the patient having any pain that is interfering with oral/enteral intake? No Allergies: ALLERGIES Allergen Reactions - Rhubarb Rash, Hives - Heparin Other: See Comments Per patient history of HIT - was on angiomax however then took l fondaparinux for bridging to coumadin. - Iv Contrast [Iodine] Other: See Comments shuts kidneys down per patient - Rituximab Other: See Comments Elevated cardiac enzymes Reason for Visit: Nutrient intake assessment: Current intake of meals: 50 - 100% Follow-up: Intervention from 08/30 Goal: Meet >75% of estimated needs was met Patient concerns/Issues: The patient states she has been eating well. She wanted to go down to cafeteria to get some meals. I let patient know she can have vouchers if on a regular diet and was able to go. She agreed. Will monitor for diet advancement. Date Kcal Pro 09/01 1133 56 gm 09/02 935 30 gm 09/03 1102 44 gm Nursing Admission Assessment Malnutrition Score Tool: 0 Plan of Care: Recommendation No problems noted at this time. Will screen again within 7 days Discharge Plan: Home on diet as ordered MNT Billing Type: Routine Care/15 min 1 unit SIGNATURE: MELVINA Ellison PATIENT NAME: Paloma Cannon DATE: September 04, 2017 TIME: 1:00 PM PAGER: [phone] PLAN OF CARE Observed: 09/04/2017 Status: COMPLETED Source: [place] 11:34 AM [facility] REPOSITORY HNO ID: [id number] Author: Veronica Ryan Service: General Internal Medicine Author Type: Resident Type: Plan of Care Filed: 09/04/2017 12:08 PM Note Text: PLAN OF CARE -Plan to place both line - Double Lumen Tunneled CVC and Dialysis/[facility] Double Lumen tomorrow 09/05/2017 (Discussed w/ IR and ID) -Plan to hold AM dose of fondaparinux -Plasmapharesis planned for Monday. Veronica Ryan MD Internal Medicine PGY-3 PROGRESS Observed: 09/04/2017 Status: COMPLETED Source: [place] 11:33 AM [facility] REPOSITORY HNO ID: [id number] Author: Ignacio Novak Service: Hospital Medicine Author Type: Physician Type: Progress Notes Filed: 09/04/2017 11:58 AM Note Text: [facility] - [facility] Progress Note PATIENT NAME: Paloma Cannon Brief Plan for Today - Continue Daptomycin and Flagyl - Hold Fondaparinaux tomorrow for placement of TDC and Samantha - Plasmapheresis tentative on Monday Interval History No acute events overnight, afebrile, HDS, Labs and micro reviewed INR: 1.4 Medications Current Facility-Administered Medications: pantoprazole DR 40 mg tab(s) (PROTONIX) 40 mg ORAL DAILY (6 AM) HYDROmorphone 0.5 mg injection (DILAUDID) 0.5 mg INTRAVENOUS q 6 H PRN DAPTOmycin 400 mg in NaCl (PF) 0.9% 8 mL (CUBICIN) 400 mg INTRAVENOUS q 24 HR diphenhydrAMINE 25 mg in D5W 50 mL 25 mg INTRAVENOUS PRN prochlorperazine 5 mg injection (COMPAZINE) 5 mg INTRAVENOUS q 4 H PRN metroNIDAZOLE 500 mg PREMIX piggyback (FLAGYL) 500 mg INTRAVENOUS q 8 H sulfamethoxazole-trimethoprim 800-160 mg 1 tablet (BACTRIM DS,SEPTRA DS) 1 tablet ORAL MO-WE- gabapentin 300 mg cap(s) (NEURONTIN) 300 mg ORAL q 8 H predniSONE 10 mg tab(s) (DELTASONE) 10 mg ORAL DAILY 0.9% NaCl 10 mL 10 mL INTRAVENOUS q 12 H 0.9% NaCl 20 mL 20 mL INTRAVENOUS PRN warfarin order for discharge OTHER PRN Physical Exam BP 112/57 Pulse 94 Temp 36.4 ?C (97.6 ?F) (Oral) Resp 18 Ht 160 cm (5' 2.99) Wt 98.3 kg (216 lb 11.4 oz) SpO2 94% BMI 38.4 kg/m2 General: No acute distress Neck: No JVD. Supple Lungs: Clear lungs without rhonchi, rales, wheezing Heart: Regular rate and rhythm. S1+S2 with no added sounds or murmurs. Abdomen: Soft abdomen, non tender with no visceromegaly Extremities: No edema. 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 ? 1) MRSE + E faecalis BSI attributed to tunneled catheter treated with 6 weeks of iv daptomycin in 02/02. Microbiology data: 09/01: blood x 2 NGTD 08/30: blood Jesus Alberto cath x 2 GPC clusters and E faecalis 08/28: blood x 2 NGTD 08/26: blood catheter MRSE, blood peripheral NGTD 08/25 blood x 2 E faecalis and now MRSE 2 of 2 sets from and periphery 08/25: stool C diff Prior adverse reaction to vancomycin - CAPRICE Culture from Samantha and Johnny catheter - Both catheters removed Plan: 1. Continue daptomycin to 6 mg/kg daily 2. Place Samantha and TDC on 09/05 - She is culture negative but held until tomorrow as she is on Fondaparinaux which needs to be held on day of procedure ? 2) C difficile Colitis Multiple bouts of diarrhea on presentation, C difficile assay positive Plan: - Continue flagyl 500 mg TID for C diff x 14 days - Continue contact precautions ? 3) Pancytopenia 2/ to cytoxan which has been discontinued per heme recs Has fluctuating counts, low plts Plan: - Monitor counts - Hold cyclophosohamide -If patient's ANC falls below 500 with give one dose of Neupogen daily until the ANC is greater than 500 and then intermittently as needed. 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 stents and Endoglix AFX endograft at the inferior vena caval bifurcation) on warfarin,?extensive thrombectomy at outside hospital for right lower extremity and IVC thrombus Subtherapeutic INR Heparin not an option due to HIT Warfarin not an option due to anticipated line removal and placement in next few days Plan: - Appreciate vascular medicine recommendations As her Cr is currently normal, reasonable to use fondaparinux to avoid need for bival (IV access difficult as lines are being removed, and frequent lab draws). OK to use prophy dose fondaparinux 2.5mg SC QD as outlined above prior to procedure. After lines are replaced and no additional procedures are planned, then would anticipate bridging back to warfarin using full therapeutic fondaparinux 7.5mg QD. Monitor for bleeding. Other: Diet: Regular GI AND DVT Prophylaxis: fondaparinux 2.5mg SC QD PT/OT Disposition Recs: N/A Code Status: Full code ? Emelia Liu MD PGY-1 Internal Medicine [id number] September 04, 2017 11:[address] [facility] STAFF PHYSICIAN NOTE OF PERSONAL INVOLVEMENT IN CARE I have reviewed the progress note obtained and documented by the resident and I personally participated in the fernandes components. I have discussed the case and management of the patient's care. The following comments revise or confirm relevant fernandes components of their note. 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 PLAN: Clinically doing well. Line replacement today, PLEX tomorrow or Monday. Continue to hold cyclophosphamide given pancytopenia. Continue flagyl for C diff and daptomycin for MRSE bacteremia. D/C planning. Resume hterapeutic fondaparinaux after line placement. SIGNATURE: Ignacio Novak MD PAGER: [phone] DATE of SERVICE: September 04, 2017 TIME of SERVICE: 11:55 AM CONSULT PROG Observed: 09/04/2017 Status: COMPLETED Source: [place] 11:29 AM [facility] REPOSITORY HNO ID: [id number] Author: Dominique Wright Service: Infectious Disease Author Type: Physician Type: Consult Progress Note Filed: 09/04/2017 11:33 AM Note Text: INFECTIOUS DISEASE CONSULT SERVICE PROGRESS NOTE Date: September 04, 2017 Patient Name: Paloma Cannon Interval History: Doing well over the weekend. Blood cultures 09/01 negative to date. No diarrhea. MEDICATIONS Current Facility-Administered Medications: pantoprazole DR 40 mg tab(s) (PROTONIX) 40 mg ORAL DAILY (6 AM) HYDROmorphone 0.5 mg injection (DILAUDID) 0.5 mg INTRAVENOUS q 6 H PRN DAPTOmycin 400 mg in NaCl (PF) 0.9% 8 mL (CUBICIN) 400 mg INTRAVENOUS q 24 HR diphenhydrAMINE 25 mg in D5W 50 mL 25 mg INTRAVENOUS PRN prochlorperazine 5 mg injection (COMPAZINE) 5 mg INTRAVENOUS q 4 H PRN metroNIDAZOLE 500 mg PREMIX piggyback (FLAGYL) 500 mg INTRAVENOUS q 8 H sulfamethoxazole-trimethoprim 800-160 mg 1 tablet (BACTRIM DS,SEPTRA DS) 1 tablet ORAL -WE gabapentin 300 mg cap(s) (NEURONTIN) 300 mg ORAL q 8 H predniSONE 10 mg tab(s) (DELTASONE) 10 mg ORAL DAILY 0.9% NaCl 10 mL 10 mL INTRAVENOUS q 12 H 0.9% NaCl 20 mL 20 mL INTRAVENOUS PRN warfarin order for discharge OTHER PRN Current antibiotics: daptomycin 6?mg/kg daily Flagyl Examination: BP 112/57 Pulse 94 Temp 36.4 ?C (97.6 ?F) (Oral) Resp 18 Ht 160 cm (5' 2.99) Wt 98.3 kg (216 lb 11.4 oz) SpO2 94% BMI 38.4 kg/m2 Alert, oriented, appears well HEENT no conjunctival lesions, no thrush NECK supple, no LAD CHEST clear, right samantha now removed, dressing in place, left pheresis catheter removed, site benign HEART regular, no MRG ABDO soft, nontender, mild distension EXTREM bilateral LE symmetric erythema of lower legs to ankle, blanches to pressure, nontender ?? Laboratory data: WBC 2, HCT 27, PLTs 46 ?? Microbiology data: 09/01: blood x 2 NGTD 08/31: cath tip: <100 CFU E faecalis, <100 CFU Staph epi 08/30: blood Jesus Alberto cath x 2 GPC clusters and E faecalis 08/28: blood x 2 NGTD 08/26: blood catheter MRSE, blood peripheral NGTD 08/25 blood x 2 E faecalis and now MRSE 2 of 2 sets from and periphery 08/25: stool C diff ?? Imaging data: CXR reviewed, no infiltrates ?? ASSESSMENT:? 1. Antiphospholipid syndrome?(on plasmapheresis- PLEX every other week, prednisone?5/10mg) 2. 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 stents and Endoglix AFX endograft at the inferior vena caval bifurcation) on warfarin,?extensive thrombectomy at outside hospital for right lower extremity and IVC thrombus. 3. DAH x 5 4. HFpEF due to Rituximab. 5.?MRSE BSI attributed to tunneled catheter treated with 6 weeks of iv daptomycin in 02/02. ?? Admitted with fever and diarrhea. Found to have recurrence of C diff colitis and E faecalis+ MRSE?BSI. Suspected primary line infection (grew?from line in 12 hours compared to 20 hours from periphery). Presence of MRSE argues against GI source. UA not suggestive of urinary source. Samantha removed, but then with identification of jesus alberto/pheresis catheter infection. Jesus Alberto removed 08/31. Needs pheresis next week. ?? RECOMMENDATIONS:? 1. Continue daptomycin to 6 mg/kg daily 2. Continue flagyl 500 mg TID for C diff x [address] samantha and pheresis catheter toay. 4. Copat for Daptomycin for another 7 days. Signature: Dominique Wright MD September 04, 2017 11:30 a.m. CONSULT PROG Observed: 09/04/2017 Status: COMPLETED Source: [place] 11:23 AM [facility] REPOSITORY HNO ID: [id number] Author: Paulette Gooden (Elliott) Davonte Service: Vascular Medicine Author Type: Nurse Practitioner Type: Consult Progress Note Filed: 09/04/2017 11:31 AM Note Text: VASCMED CONSULT PROGRESS NOTE Subjective Follow Up Regarding: APS, remote hx of HIT INTERVAL HPI and PERTINENT ROS: INR 1.4 aptt 35 hgb 8.3 platelets 46 S: Sitting up in bed, legs are stable. line placement in IR today Current Facility-Administered Medications: pantoprazole DR 40 mg tab(s) (PROTONIX) 40 mg ORAL DAILY (6 AM) HYDROmorphone 0.5 mg injection (DILAUDID) 0.5 mg INTRAVENOUS q 6 H PRN fondaparinux 2.5 mg injection (ARIXTRA) 2.5 mg SUBCUTANEOUS q 24 HR DAPTOmycin 400 mg in NaCl (PF) 0.9% 8 mL (CUBICIN) 400 mg INTRAVENOUS q 24 HR diphenhydrAMINE 25 mg in D5W 50 mL 25 mg INTRAVENOUS PRN prochlorperazine 5 mg injection (COMPAZINE) 5 mg INTRAVENOUS q 4 H PRN metroNIDAZOLE 500 mg PREMIX piggyback (FLAGYL) 500 mg INTRAVENOUS q 8 H sulfamethoxazole-trimethoprim 800-160 mg 1 tablet (BACTRIM DS,SEPTRA DS) 1 tablet ORAL MO-WE- gabapentin 300 mg cap(s) (NEURONTIN) 300 mg ORAL q 8 H predniSONE 10 mg tab(s) (DELTASONE) 10 mg ORAL DAILY 0.9% NaCl 10 mL 10 mL INTRAVENOUS q 12 H 0.9% NaCl 20 mL 20 mL INTRAVENOUS PRN warfarin order for discharge OTHER PRN Objective PHYSICAL EXAM: BP 112/57 Pulse 94 Temp 36.4 ?C (97.6 ?F) (Oral) Resp 18 Ht 160 cm (5' 2.99) Wt 98.3 kg (216 lb 11.4 oz) SpO2 94% BMI 38.4 kg/m2 General: alert and oriented x3 Cardiac: RRR Respiratory: clear B/L Abdominal/GI: soft, non-tender Extremity:B/L trace edema w/chronic skin changes Skin: warm, dry Pulse/vascular exam: right + 2 rad/dp left + 2 rad/dp DATA: Diagnostic tests reviewed for today's visit: Most recent labs and imaging results. Most recent labs CBC, Coags, BMP, Mg, Phos Recent Labs 09/04/17 0422 09/03/17 0550 09/02/17 0515 WBC 2.06* 1.74* 1.58* HB 8.3* 8.5* 7.2* HCT 27.3* 28.1* 24.1* PLT 46* 57* 60* INR 1.4* 1.6* 1.7* APTT 35.4* 36.6* 37.3* MG -- -- 1.9 P -- -- 3.5 Impression/Recommendations 27 year old female well known to [facility] service for a hx of APS on long-term AC w/warfarin, IVC thrombosis, w/IVC stent, hepatic vein thrombosis, remote HIT and DAH w/scheduled plasmapheresis. Other pertinent past medical history include HF and CKD. Her warfarin is followed by given her APS. Dr. Andujar manages her APS/plasmapheresis scheduling. She presented on 08/25 w/high fevers, n/v and intolerance to PO. ? She was found to have positive blood cultures and positive c diff. In addition she was neutropenic in the setting of recently starting Cytoxan for her hx of DAH which is now being held in light of her BSI and neutropenia. ? was consulted for subtherapeutic INR and hx of HIT. Pt's INR was allowed to drift down for Samantha and plasmapheresis catheter removal. INR today is 1.4. Estimated Creatinine Clearance: 100.7 mL/min (based on Cr of 0.93). Plan discussed w/Dr. Mckinnon: continue Fondaparinux 2.5 mg for DVT prophylaxis once all invasive lines placed in IR could transition to therapeutic fondaparinux (7.5 mg) as a bridge to warfarin (home dose 5 and 7.5 mg) please check creatinine w/am labs prior to starting therapeutic fondaparinux as pt has had elevated renal function in the past [facility] follows her warfarin outpatient, will follow peripherally for now, please advise us 24 hrs prior to DC and can see and make DC recs SIGNATURE: Paulette Naranjo CNP PATIENT NAME: Paloma Cannon DATE: September 04, 2017 TIME: 11:23 AM PAGER/CONTACT #: [phone] . CASE MANAGEM Observed: 09/04/2017 Status: COMPLETED Source: [place] 11:21 AM [facility] REPOSITORY HNO ID: [id number] Author: Hailey Cunningham Service: Care Management Author Type: Chain Maker Loom Control Type: Care Mgt Progress Note Filed: 09/04/2017 11:22 AM Note Text: CARE MANAGEMENT PROGRESS NOTE SERVICE DATE: 09/04/2017 SERVICE TIME:11:11 LOS: 10 days IM letter given to patient on 09/04/2017. SIGNATURE: Hailey Cunningham, PATIENT NAME: Paloma Cannon DATE: September 04, 2017 TIME: 11:21 AM PAGER/CONTACT #: [phone] NURSING PROG Observed: 09/04/2017 Status: COMPLETED Source: [place] 7:12 AM [facility] REPOSITORY HNO ID: [id number] Author: Sanchez (Rn) JEFF Walker Service: (none) Author Type: Registered Nurse Type: Nursing Progress Note Filed: 09/04/2017 7:15 AM Note Text: Nursing Progress Note Patient Name: Paloma Cannon [address] Pt left arm cleaned per protocol, Ultrasound set up per protocol. On first attempt infiltration occurred and IV removed and pressure applied. On second attempt 20g was successful. The IV was secured with a sterile dressing. Blood return was noted and flush was visualized. No complaints of pain and no s/s of infiltration. ABx treatment restarted. Will continue to monitor. This note was completed by: Sanchez Walker RN PROTIME Collected: 09/04/2017 Status: F Source: [place] 4:22 AM [facility] REPOSITORY TYPE CODE TESTS RESULT OUT OF RANGE REFERENCE UNITS LAB PSEC 9.7-13.0 sec High PT Sec 14.0 LAB INR 0.9-1.3 High PT INR 1.4 Result Comment: Vitamin K Antagonist (VKA) Therapeutic Range: INR 2 to 3 (Target INR of 2.5) Note: For patients treated with VKA drugs, such as warfarin, the [place] [employer] 2012 Guideline recommends a therapeutic INR range of 2 to 3 (target INR of 2.5). This recommendation includes high-risk patients with antiphospholipid syndrome with previous arterial or venous thromboembolism, current-generation mechanical or bioprosthetic aortic heart valve replacement. Note: Patients with mechanical aortic valve replacement and additional risk factors for thromboembolic events (atrial fibrillation, previous thromboembolism, LV dysfunction, hypercoagulable conditions) or an older generation mechanical AVR (i.e., ball in-Cage) or any mechanical MVR should have a INR therapeutic range of 2.5 to 3.5 (target INR of 3). Michael GH, et al. Chest 2012, 141:7S-47S Diogenes RA, et al. [facility] 2017, 70: [phone] Performed By: #### PT, PTT, CBCDIF #### [facility] [address], [place] [address] APTT Collected: 09/04/2017 Status: F Source: [place] 4:22 AM [facility] REPOSITORY TYPE CODE TESTS RESULT OUT OF RANGE REFERENCE UNITS LAB APTT 23.0-32.4 sec High APTT 35.4 Result Comment: Unfractionated Heparin Therapeutic Ranges: Standard Heparin Nomogram: 53 to 78 seconds (anti-Xa level of 0.3 to 0.7 U/ml) Low Dose/ACS Nomogram: 49 to 67 seconds (anti-Xa level of 0.2 to 0.5 U/ml) Stroke Treatment Nomogram: 49 to 67 seconds (anti-Xa level of 0.2 to 0.5 U/ml) Note: The APTT therapeutic range has been determined for the current lot of laboratory APTT reagent in use throughout the [facility]. Performed By: #### PT, PTT, CBCDIF #### [facility] [address] [place], [place] [address] CBC AND DIFFERENTIAL Collected: 09/04/2017 Status: F Source: [place] 4:22 AM [facility] REPOSITORY TYPE CODE TESTS RESULT OUT OF REFERENCE UNITS RANGE LAB WBC 3.70-11.00 k/uL Low WBC 2.06 LAB RBC 3.90-5.20 m/uL Low RBC 3.17 LAB HGB 11.5-15.5 g/dL Low Hemoglobin 8.3 LAB HCT 36.0-46.0 % Low Hematocrit 27.3 LAB MCV 80.0-100.0 fL MCV 86.1 LAB MCH 26.0-34.0 pG MCH 26.2 LAB MCHC 30.5-36.0 g/dL Low MCHC 30.4 LAB RDWCV 11.5-15.0 % RDW-CV High 22.5 LAB PLTCT 150-400 k/uL Low Platelet Count 46 Result Comment: Result checked and verified No clot detected. LAB MPV 9.0-12.7 fL MPV <<DO NOT REPORT>> LAB ANEUT % Neut% 66.9 LAB AANEUT 1.45-7.50 k/uL Abs 1.36 Low Neut LAB ALYMP % 17.0 Lymph% LAB AALYMP 1.00-4.00 k/uL Abs 0.35 Low Lymph LAB AMONO % [place]% 10.2 LAB AAMONO <0.87 k/uL Abs 0.21 [place] LAB AEOS % 4.4 Eosin% LAB AAEOS <0.46 k/uL Abs 0.09 Eosin LAB ABASO % Baso% 1.5 LAB AABASO <0.11 k/uL Abs 0.03 Baso LAB AUNRBC 0 /100 WBC NRBCs 0.0 LAB ABNRBC <0.01 k/uL <0.01 Absolute nRBC LAB DTYP DTYPE Auto Diff Performed By: #### PT, PTT, CBCDIF #### [facility] [address] [place], [place] [address] HOSP Observed: 09/04/2017 Status: COMPLETED Source: [place] 12:00 AM [facility] REPOSITORY Patient Update (HSIDMN) PALOMA MARTINEZ ([id number]) 1990 F PTR Date Time Provider Department 09/04/17 DOMINIQUE WRIGHT HSIDMN During your visit today, we recorded the following information about you: Allergies As of Date: 09/04/2017 Noted Allergy Reaction RHUBARB 10/24/2013 2 - Rash 4 - Hives HEPARIN 10/24/2013 14 - Other: See Comments Comments: Per patient history of HIT - was on angiomax however then took l fondaparinux for bridging to coumadin. IV CONTRAST (IODINE) 2016 14 - Other: See Comments Comments: shuts kidneys down per patient RITUXIMAB 11/09/2016 14 - Other: See Comments Comments: Elevated cardiac enzymes Date Reviewed: 09/04/2017 Reviewed by: Jeff Oates RN - Fully Assessed Reason for Visit: CoPat Start [5359] Prescriptions as of 09/04/2017 Sig: X CYCLOPHOSPHAMIDE 50 MG CAPSULE Take by mouth daily. 2 caps -* PREDNISONE 5 MG TABLET Take by mouth daily. 20 mg - * SULFAMETHOXAZOLE 800 MG-TRIME* Take 1 tablet by mouth every * X CARVEDILOL 25 MG TABLET Take 1 tablet by mouth twice * X HYDRALAZINE 100 MG TABLET Take 1 tablet by mouth every * X AMLODIPINE 5 MG TABLET Take 1 tablet by mouth once d* X TORSEMIDE 20 MG TABLET Take 2 tablets by mouth once * GABAPENTIN 300 MG CAPSULE Please take gabapentin 200 mg* Patient taking differently: 300 mg three times daily. FLUTICASONE 50 MCG/ACTUATION * Use 1 [place] in each nostril o* X WARFARIN 5 MG TABLET take by mouth as directed in * Patient taking differently: Take 5 mg by mouth once daily* PANTOPRAZOLE 40 MG TABLET,DEL* Take 1 tablet by mouth DAILY * X ISOSORBIDE MONONITRATE ER 30 * Take 2 tablets by mouth once * X MISCELLANEOUS MEDICAL SUPPLY * 1 package 30 - 40 mmHg pressu* CETIRIZINE 10 MG TABLET Take 1 tablet by mouth once d* Patient taking differently: Take 10 mg by mouth twice lis* SENNOSIDES 8.6 MG TABLET Take 1 tablet by mouth twice * More... More... Problem List As Of Date 09/04/2017 Noted Resolved Catastrophic Antiphospholipid antibody syndrome*INVALID FOR*01/24/2017 Priority: C More... 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 Severe Gastritis [K29.70] INVALID FOR*01/11/2017 Priority: F More... More... More... More... More... Anasarca [R60.1] INVALID FOR*01/24/2017 Priority: E More... More... More... More... More... More... 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 More... More... More... More... More... More... More... More... Hx pulmonary embolism [Z86.711] INVALID FOR*01/11/2017 Priority: C More... H/O deep vein thrombophlebitis of lower extremi*INVALID FOR*03/12/2015 Priority: C More... More... More... More... More... More... Hemoptysis [R04.2] INVALID FOR*12/27/2016 More... Elevated troponin [R74.8] INVALID FOR*01/11/2017 Pancytopenia (HCC) [D61.818] INVALID FOR* Priority: C More... Thrombocytopenia (HCC) [D69.6] INVALID FOR*01/11/2017 More... SUMMARY INVALID FOR*01/24/2017 Priority: A More... SIRS (systemic inflammatory response syndrome) *INVALID FOR*04/15/2015 Priority: D More... DVT (deep venous thrombosis) (HCC) [I82.409] INVALID FOR*01/11/2017 Priority: D More... Iron deficiency anemia [D50.9] INVALID FOR*01/11/2017 Priority: F More... Productive cough, hemoptysis [R04.2] INVALID FOR*01/04/2017 Priority: B Community acquired pneumonia [J18.9] INVALID FOR*01/11/2017 Respiratory failure with hypoxia (HCC) [J96.91] INVALID FOR*01/11/2017 Priority: B More... SOB (shortness of breath) [R06.02] INVALID FOR*12/28/2016 HTN (hypertension) [I10] INVALID FOR* Priority: E More... CAPRICE (acute kidney injury) (HCC) [N17.9] INVALID FOR* Priority: B More... 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 Hx of gastritis [Z87.19] INVALID FOR*01/11/2017 More... Nausea AND vomiting [R11.2] INVALID FOR*08/28/2017 Priority: B More... 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 Anemia associated with acute blood loss [D62] INVALID FOR*01/11/2017 More... More... Acute on chronic respiratory failure with hypox*INVALID FOR* Priority: A More... Abdominal pain [R10.9] INVALID FOR* Priority: E More... Vomiting [R11.10] INVALID FOR*01/04/2017 Antiphospholipid syndrome (HCC) [D68.61] INVALID FOR*01/04/2017 Severe protein-calorie malnutrition (HCC) [E43] INVALID FOR* Priority: B Hypoxia [R09.02] INVALID FOR*01/11/2017 Acute hypoxemic respiratory failure (HCC) [J96.*INVALID FOR*12/28/2016 More... Personal history of DVT (deep vein thrombosis) *INVALID FOR*01/11/2017 More... History of heparin-induced thrombocytopenia [Z8*INVALID FOR* Priority: C More... Hospital-acquired pneumonia [J18.9] INVALID FOR*12/28/2016 Priority: B More... Hypoxemia [R09.02] INVALID FOR*01/11/2017 (HFpEF) heart failure with preserved ejection f*INVALID FOR* Priority: C More... Headache [R51] INVALID FOR*01/18/2017 Priority: I More... More... Peripheral neuropathy (HCC) [G62.9] INVALID FOR* Priority: G Joint pain [M25.50] INVALID FOR*01/11/2017 More... Diffuse arthralgia [M25.50] INVALID FOR*01/11/2017 Priority: C More... CKD (chronic kidney disease) stage 3, GFR 30-59*INVALID FOR* Priority: C More... Obesity, Class III, BMI >= 40 (morbid obesity) *INVALID FOR* Priority: F More... Hypertensive emergency [I16.1] INVALID FOR*12/05/2016 More... Acute on chronic diastolic congestive heart ena*INVALID FOR*01/11/2017 More... APS (antiphospholipid syndrome) (HCC) [D68.61] INVALID FOR* Priority: C More... Elevated troponin level [R74.8] INVALID FOR*12/05/2016 More... Hypertensive urgency [I16.0] INVALID FOR*12/05/2016 PNA (pneumonia) [J18.9] INVALID FOR*12/27/2016 Acute respiratory failure with hypoxia (HCC) [J*INVALID FOR*12/27/2016 Clostridium difficile colitis [A04.72] INVALID FOR*12/28/2016 Hemoptysis [R04.2] INVALID FOR*01/20/2017 More... More... Supratherapeutic INR [R79.1] INVALID FOR*04/28/2017 Priority: B More... Cholelithiasis [K80.20] INVALID FOR*01/24/2017 Priority: B More... Ecchymosis of right eye [S05.11XA] INVALID FOR*01/18/2017 Priority: H More... Anticoagulation management encounter [Z51.81, Z*INVALID FOR* Priority: D Acute respiratory failure (HCC) [J96.00] INVALID FOR*02/10/2017 Priority: A More... Pulmonary HTN (HCC) [I27.20] INVALID FOR* Priority: F More... GERD (gastroesophageal reflux disease) [K21.9] INVALID FOR* Priority: E More... RUQ abdominal pain [R10.11] INVALID FOR* Priority: E More... Hemoptysis [R04.2] INVALID FOR*03/11/2017 More... Diarrhea [R19.7] INVALID FOR* Priority: E More... Bacteremia [R78.81] INVALID FOR* Priority: B More... History of HIT (heparin-induced thrombocytopeni*INVALID FOR* More... Recurrent deep vein thrombosis (DVT) (HCC) [I82*INVALID FOR* More... 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 Edema [R60.9] INVALID FOR*08/28/2017 Priority: A More... Flu-like symptoms [R68.89] INVALID FOR*06/10/2017 Hypercoagulable state (HCC) [D68.59] INVALID FOR* Priority: B More... Healthcare maintenance [Z00.00] INVALID FOR* More... Iron deficiency anemia secondary to inadequate *INVALID FOR* Priority: D More... SIRS (systemic inflammatory response syndrome) *INVALID FOR* More... Fever of undetermined origin [R50.9] INVALID FOR*08/25/2017 Red man syndrome [L27.0] INVALID FOR*08/28/2017 More... Sepsis due to Enterococcus (HCC) [A41.81] INVALID FOR* Priority: A Bacteremia due to Staphylococcus epidermidis [R*INVALID FOR* More... Classic SmartForms filed during this visit: CoPAT Start Encounter Status:Closed by DOMINIQUE WRIGHT MD on 2/26/18 PROGRESS Observed: 09/03/2017 Status: COMPLETED Source: [place] 11:43 AM [facility] RE[facility]IT[facility] HNO ID: [id number] Author: Gael Simmons Service: General Internal Medicine Author Type: Physician Type: Progress Notes Filed: 09/03/2017 1:35 PM Note Text: Medicine [place] - [facility] Progress Note PATIENT NAME: Paloma Cannon Interval History No acute events overnight, afebrile, HDS, Labs and micro reviewed INR: 1.6 Medications Current Facility-Administered Medications: pantoprazole DR 40 mg tab(s) (PROTONIX) 40 mg ORAL DAILY (6 AM) HYDROmorphone 0.5 mg injection (DILAUDID) 0.5 mg INTRAVENOUS q 6 H PRN fondaparinux 2.5 mg injection (ARIXTRA) 2.5 mg SUBCUTANEOUS q 24 HR DAPTOmycin 400 mg in NaCl (PF) 0.9% 8 mL (CUBICIN) 400 mg INTRAVENOUS q 24 HR diphenhydrAMINE 25 mg in D5W 50 mL 25 mg INTRAVENOUS PRN prochlorperazine 5 mg injection (COMPAZINE) 5 mg INTRAVENOUS q 4 H PRN metroNIDAZOLE 500 mg PREMIX piggyback (FLAGYL) 500 mg INTRAVENOUS q 8 H sulfamethoxazole-trimethoprim 800-160 mg 1 tablet (BACTRIM DS,SEPTRA DS) 1 tablet ORAL -WE- gabapentin 300 mg cap(s) (NEURONTIN) 300 mg ORAL q 8 H predniSONE 10 mg tab(s) (DELTASONE) 10 mg ORAL DAILY 0.9% NaCl 10 mL 10 mL INTRAVENOUS q 12 H 0.9% NaCl 20 mL 20 mL INTRAVENOUS PRN warfarin order for discharge OTHER PRN Physical Exam BP 138/66 Pulse 87 Temp 36.7 ?C (98 ?F) (Temporal Artery) Resp 18 Ht 160 cm (5' 2.99) Wt 95.8 kg (211 lb 3.2 oz) SpO2 92% BMI 37.42 kg/m2 General: No acute distress Neck: No JVD. Supple Lungs: Clear lungs without rhonchi, rales, wheezing Heart: Regular rate and rhythm. S1+S2 with no added sounds or murmurs. Abdomen: Soft abdomen, non tender with no visceromegaly Extremities: No edema. 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 ? 1) MRSE + E faecalis BSI attributed to tunneled catheter treated with 6 weeks of iv daptomycin in 02/02. Microbiology data: 09/01: blood x 2 NGTD 08/30: blood Jesus Alberto cath x 2 GPC clusters and E faecalis 08/28: blood x 2 NGTD 08/26: blood catheter MRSE, blood peripheral NGTD 08/25 blood x 2 E faecalis and now MRSE 2 of 2 sets from and periphery 08/25: stool C diff Prior adverse reaction to vancomycin - CAPRICE Culture from Samantha and Johnny catheter - Both catheters removed Plan: 1. Continue daptomycin to 6 mg/kg daily 2. If 09/01 blood cultures remain negative can replace pheresis catheter early next week. Will defer to IR about most appropriate site. ? 2) C difficile Colitis Multiple bouts of diarrhea on presentation, C difficile assay positive Plan: - Continue flagyl 500 mg TID for C diff x 14 days - contact precautions ? 3) Pancytopenia 2/2 to cytoxan which has been discontinued per heme recs Plan: - Monitor counts - Hold cyclophosohamide -If patient's ANC falls below 500 with give one dose of Neupogen daily until the ANC is greater than 500 and then intermittently as needed. 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 stents and Endoglix AFX endograft at the inferior vena caval bifurcation) on warfarin,?extensive thrombectomy at outside hospital for right lower extremity and IVC thrombus Subtherapeutic INR Heparin not an option due to HIT Warfarin not an option due to anticipated line removal and placement in next few days Plan: - Appreciate vascular medicine recommendations As her Cr is currently normal, reasonable to use fondaparinux to avoid need for bival (IV access difficult as lines are being removed, and frequent lab draws). OK to use prophy dose fondaparinux 2.5mg SC QD as outlined above prior to procedure. After lines are replaced and no additional procedures are planned, then would anticipate bridging back to warfarin using full therapeutic fondaparinux 7.5mg QD. Monitor for bleeding. Daily CBC+plt, PT/INR, aPTT. ? Other: Diet: Regular GI AND DVT Prophylaxis: fondaparinux 2.5mg SC QD PT/OT Disposition Recs: N/A Code Status: Full code ? Veronica Ryan MD Internal Medicine PGY-3 Pager: [phone] 11:45 AM 09/03/2017 DR. FRED STONE, SR. HOSPITAL STAFF PHYSICIAN NOTE OF PERSONAL INVOLVEMENT IN CARE I have reviewed the documentation obtained and documented by the team healthcare provider (fellow, resident, nurse practitioner or physician child nutrition assistant) and I personally participated in the fernandes components. I have discussed the case and management of the patient's care and the note has been revised / addended to reflect my direct input. Continues to do well, 2.23 c/s NGTD x2 plt ct has stabilized Plan is for new exchange line next week Gael Simmons MD [facility] Medicine Staff PAGER: [phone] DATE of Service: 09/03/2017 TIME of Service: 1:35 PM PROTIME Collected: 09/03/2017 Status: F Source: [place] 5:50 AM [facility] REPOSITORY TYPE CODE TESTS RESULT OUT OF RANGE REFERENCE UNITS LAB PSEC 9.7-13.0 sec High PT Sec 15.9 LAB INR 0.9-1.3 High PT INR 1.6 Result Comment: Vitamin K Antagonist (VKA) Therapeutic Range: INR 2 to 3 (Target INR of 2.5) Note: For patients treated with VKA drugs, such as warfarin, the [place] [employer] 2012 Guideline recommends a therapeutic INR range of 2 to 3 (target INR of 2.5). This recommendation includes high-risk patients with antiphospholipid syndrome with previous arterial or venous thromboembolism, current-generation mechanical or bioprosthetic aortic heart valve replacement. Note: Patients with mechanical aortic valve replacement and additional risk factors for thromboembolic events (atrial fibrillation, previous thromboembolism, LV dysfunction, hypercoagulable conditions) or an older generation mechanical AVR (i.e., ball in-Cage) or any mechanical MVR should have a INR therapeutic range of 2.5 to 3.5 (target INR of 3). Michael PLASENCIA, et al. Chest 2012, 141:7S-47S Diogenes RESENDIZ, et al. [facility] 2017, 70: 252-289 Performed By: #### PT, PTT, CBCDIF #### [facility] [address], [place] [address] APTT Collected: 09/03/2017 Status: F Source: [place] 5:50 AM [facility] REPOSITORY TYPE CODE TESTS RESULT OUT OF RANGE REFERENCE UNITS LAB APTT 23.0-32.4 sec High APTT 36.6 Result Comment: Unfractionated Heparin Therapeutic Ranges: Standard Heparin Nomogram: 53 to 78 seconds (anti-Xa level of 0.3 to 0.7 U/ml) Low Dose/ACS Nomogram: 49 to 67 seconds (anti-Xa level of 0.2 to 0.5 U/ml) Stroke Treatment Nomogram: 49 to 67 seconds (anti-Xa level of 0.2 to 0.5 U/ml) Note: The APTT therapeutic range has been determined for the current lot of laboratory APTT reagent in use throughout the [facility]. Performed By: #### PT, PTT, CBCDIF #### [facility] [address], [place] [address] CBC AND DIFFERENTIAL Collected: 09/03/2017 Status: F Source: [place] 5:50 AM [facility] REPOSITORY TYPE CODE TESTS RESULT OUT OF RANGE REFERENCE UNITS LAB WBC 3.70-11.00 k/uL Low WBC 1.74 Result Comment: Result checked and verified No clot detected. LAB RBC 3.90-5.20 m/uL RBC Low 3.29 LAB HGB 11.5-15.5 g/dL Hemoglobin Low 8.5 LAB HCT 36.0-46.0 % Hematocrit Low 28.1 LAB MCV 80.0-100.0 fL MCV 85.4 LAB MCH 26.0-34.0 pG MCH Low 25.8 LAB MCHC 30.5-36.0 g/dL MCHC Low 30.2 LAB RDWCV 11.5-15.0 % RDW-CV High 22.6 LAB PLTCT 150-400 k/uL Platelet Count 57 Low LAB MPV 9.0-12.7 fL MPV <<DO NOT REPORT>> LAB ANEUT % Neut% 68.0 LAB AANEUT 1.45-7.50 k/uL Abs Neut Low 1.18 LAB ALYMP % Lymph% 20.0 LAB AALYMP 1.00-4.00 k/uL Abs Lymph Low 0.35 LAB AMONO % [place]% 5.0 LAB AAMONO <0.87 k/uL Abs [place] 0.09 LAB AEOS % Eosin% 3.0 LAB AAEOS <0.46 k/uL Abs Eosin 0.05 LAB ABASO % Baso% 3.0 LAB AABASO <0.11 k/uL Abs Baso 0.05 LAB ABIMMG k/uL ANC(includeSEG+BAN 1.18 D) LAB AMYELO % Myelo% 1.0 LAB ACAIMI Acanthocytes Few LAB ANIIMI Anisocytosis Present LAB LFTIMI Left Shift Present LAB OVAIMI Ovalocytes Few LAB POLIMI Polychromasia Slight LAB RCFIMI RBC Fragments Few LAB TEAIMI Tear Drop Cells Few LAB PLTEST Platelet Estimate Platelet estimate decreased LAB DTYP DTYPE Manual Diff Performed By: #### PT, PTT, CBCDIF #### [facility] [address] [place] [id number] NURSING PROG Observed: 09/02/2017 Status: COMPLETED Source: [place] 3:41 PM [facility] REPOSITORY HNO ID: [id number] Author: Shelia (Rn) JEFF Oviedo Service: (none) Author Type: Registered Nurse Type: Nursing Progress Note Filed: 09/02/2017 3:42 PM Note Text: Nursing Progress Note Patient Name: Paloma Cannon Patient Location: G081 [id number] Daily Note: 1540- Patient resting in bed, call light in reach. This note was completed by: Shelia Oviedo RN THERAPY NT Observed: 09/02/2017 Status: COMPLETED Source: [place] 10:38 AM [facility] [place] REPOSITORY HNO ID: [id number] Author: Mitch Mckenzie/Carlos Wallis Service: Occupational Therapy Author Type: Occupational Therapist Type: Therapy (PT/OT/Speech/Resp) Filed: 09/02/2017 10:41 AM Note Text: Occupational Therapy Evaluation SERVICE DATE: 09/02/2017 SERVICE TIME: 1000 to 1030 ROOM: [place] [address] Recommended Discharge Disposition: Home Recommended Discharge Disposition Comments: (home with family) Anticipated Discharge Needs: (none) OT Recommendations to Nursing: (UP ad tom) OT 6 Clicks Score: 24 Precautions/Activity Restrictions: Lines/Tubes/Drains ASSESSMENT: Patient presents with indep to mod indep for ADL and mobility no skilled need D/c from OT services Tolerated Full Session Occupational Therapy Problem List: Education Deficit Patient /Caregiver Goals: Go Home Goals for Plan of Care: Able to perform HEP with: Independent Progress Toward Goals: Progressing as expected Rehab Potential: Excellent PLAN: Treatment Frequency (times per week): Discontinue Therapy Services Reasons Therapy Services Discontinued: No skilled needs;Independent in all functional mobility Visits Treatment Interventions: Education Plan of Care developed with: Patient TREATMENT INTERVENTIONS: Therapy Diagnosis: No Skilled Need Interventions Provided: Evaluation;Therapeutic Exercise (65364) $ Evaluation-Low (46838) Billed Units: 1 unit Therapeutic Exercise (75783) Treatment Minutes: 15 1 unit Skilled Intervention(s): Instruction in therapeutic exercise Denys UE AROM all planes instruction Verbal and tactile cuing provided min cues for follow through Education in cont AROM on own to maintain strength, pt able to demo HEP , goals met Total Timed Code Treatment Minutes: 15 Total Treatment Time (minutes): 30 FUNCTIONAL G CODE: OT 6 Clicks Score: 24 (09/02/17 1000) Self Care Current Status (G8987): CH (09/02/17 1000) Self Care Goal Status (G8988): (09/02/17 1000) Self Care Discharge Status (G8989): (09/02/17 1000) Based on clinical assessment and the score on the 6 Clicks Functional Assessment Tool, the G code and corresponding severity modifiers are documented above. 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 Entry To Home: No Stairs Number Of Stairs To Bed/Bath: 0 Tub/Shower Type: walk in Equipment Owned: Commode-Raised;Grab Bars-Shower;Grab Bars-Toilet;Hand Held Shower;Shower Chair;Home Oxygen Prior Functional Level: Within Functional Limits OBJECTIVE: CURRENT FUNCTIONAL STATUS: Current Activities of Daily Living Assist Level Feeding Independent Grooming Independent Bathing Upper Body Independent Bathing Lower Body Modified Independent Dressing Upper Body Independent Dressing Lower Body Modified Independent Toileting Independent Instrumental Activities of Daily Living Assist Level Meal/Beverage Prep Light Cleaning Laundry Medication Management with Strategies Functional Mobility Assist Level Rolling Independent Supine to Sit Independent Sit to Supine Independent Scooting Independent Sit to Stand Independent Stand to Sit Independent Bed to Chair Independent Stand Pivot Toilet/Commode Independent Functional Mobility Activity Tolerance: Standing Activity Standing Activity Tolerance (in minutes): 5 Please see discipline specific clinical documentation flowsheet for complete details for this therapy evaluation/treatment. SIGNATURE: JERMAINE Arreguin/Allie PATIENT NAME: Paloma Cannon DATE: September 02, 2017 TIME: 10:38 AM PAGER: [phone] PROGRESS Observed: 09/02/2017 Status: COMPLETED Source: [place] 10:20 AM [facility] REPOSITORY O ID: [id number] Author: Gael Simmons Service: Hospital Medicine Author Type: Physician Type: Progress Notes Filed: 09/02/2017 10:45 AM Note Text: Medicine [place] - [facility] Marie Progress Note PATIENT NAME: Paloma Cannon Brief Plan for Today - Continue Daptomycin and Flagyl - Monitor blood cultures, last cultures drawn on 09/01 NGx1d - Monitor clinical status - Continue fondaparinaux 2.5 mg Interval History No acute events overnight, afebrile 48 hours, HDS, overall feels well If remains culture negative x 2 days, plan for tunneled dialysis catheter followed by PLEX on Monday. Medications Current Facility-Administered Medications: pantoprazole DR 40 mg tab(s) (PROTONIX) 40 mg ORAL DAILY (6 AM) HYDROmorphone 0.5 mg injection (DILAUDID) 0.5 mg INTRAVENOUS q 6 H PRN fondaparinux 2.5 mg injection (ARIXTRA) 2.5 mg SUBCUTANEOUS q 24 HR DAPTOmycin 400 mg in NaCl (PF) 0.9% 8 mL (CUBICIN) 400 mg INTRAVENOUS q 24 HR diphenhydrAMINE 25 mg in D5W 50 mL 25 mg INTRAVENOUS PRN prochlorperazine 5 mg injection (COMPAZINE) 5 mg INTRAVENOUS q 4 H PRN metroNIDAZOLE 500 mg PREMIX piggyback (FLAGYL) 500 mg INTRAVENOUS q 8 H sulfamethoxazole-trimethoprim 800-160 mg 1 tablet (BACTRIM DS,SEPTRA DS) 1 tablet ORAL gabapentin 300 mg cap(s) (NEURONTIN) 300 mg ORAL q 8 H predniSONE 10 mg tab(s) (DELTASONE) 10 mg ORAL DAILY 0.9% NaCl 10 mL 10 mL INTRAVENOUS q 12 H 0.9% NaCl 20 mL 20 mL INTRAVENOUS PRN warfarin order for discharge OTHER PRN Physical Exam BP 140/68 Pulse 94 Temp 36.7 ?C (98 ?F) (Oral) Resp 18 Ht 160 cm (5' 2.99) Wt 98.2 kg (216 lb 7.9 oz) SpO2 96% BMI 38.36 kg/m2 General: No acute distress. AANDOx3. HEENT: PERRLA. EOMi. Neck: No swellings. Both Samantha and Johnny catheters removed, clean sites. CV: Normal rate and rhythm. Resp: CTA b/l. Maintained sats on baseline NC 2L Abdomen: Soft, nontender, bowel sounds presents, decreased distension Extremities: No pedal edema b/l. Neuro: CN II-XII Grossly Intact. Fluid Balance Intake/Output Summary (Last 24 hours) at 09/02/17 1020 Last data filed at 09/02/17 0936 Gross per 24 hour Intake 1070 ml Output 4 ml Net 1066 ml Assessment and Plan The patient is a 27 year old female with a Gram-positive bacteremia in the setting of C difficile Colitis, pancytopenia, and CAPRICE. ? 1.) Sepsis d/t E fecalis Presented with fever + nausea/vomiting, 2/2 blood cultures from 08/25 showed Gram-positive cocci in pairs + chains, currently afebrile and hemodynamically stable BCX from 08/28 NG x 24 hrs Plan: - Quiñonez sensitive E fecalis; - Needs coverage for MRSE so switched from Ampicillin to daptomycin 2.) MRSE bacteremia 3 line cultures positive for MRSE (22 x2/16 and 12 x2/17) Needs coverage for MRSE Prior adverse reaction to vancomycin - CAPRICE Culture from Samantha and Johnny catheter - Both catheters removed Plan: - Switch to Daptomycin - Follow up cultures after removal of catheters - If remains culture negative x 2 days, plan for tunneled dialysis catheter placement on Monday followed by PLEX session ? 3.) C difficile Colitis Multiple bouts of diarrhea on presentation, C difficile assay positive Plan: - metronidazole - contact precautions ? 4.) Pancytopenia Unclear etiology, possibly related to medications (cyclophosphamide or bactrim she's been taking for PJP prophylaxis), reticulocyte count 1.5% (inadequate bone marrow compensation) CMV negative Fluctuating counts Plan: - Monitor counts - Hold cyclophosohamide - Fungal battery 4.) CAPRICE Elevated Cr (baseline about 1), UA was clean with no signs of infection, FENa < 1%, likely pre-renal from dehydration 2/2 diarrhea with hypotension from bacteremia Plan: - Returning to baseline - strict IANDOs - avoid nephrotoxins - avoid NSAIDS + iv contrast - iv fluids as necessary 5.) APS Subtherapeutic INR at 1.8 Heparin not an option due to HIT Warfarin not an option due to anticipated line removal and placement in next few days Plan: - Appreciate vascular medicine recommendations - Fondaparinaux 2.5 mg OD ? Chronic Problems: 1. Anti-phospholipid Syndrome 2. Hypertension 3. HFpEF - f/u ECHO 4. Heparin-induced Thrombocytopenia 5. 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 GERD ? Other: Diet: Regular GI AND DVT Prophylaxis: warfarin PT/OT Disposition Recs: N/A Code Status: Full code ? Case to be discussed with staff, Dr Simmons SIGNATURE: [place] [id number] DATE of SERVICE: September 02, 2017 TIME of SERVICE: 10:[address] FRED STONE, SR. HOSPITAL STAFF PHYSICIAN NOTE OF PERSONAL INVOLVEMENT IN CARE I have reviewed the documentation obtained and documented by the team healthcare provider (fellow, resident, nurse practitioner or physician child nutrition assistant) and I personally participated in the fernandes components. I have discussed the case and management of the patient's care and the note has been revised / addended to reflect my direct input. Clinically improving. No loose stools past 24 hours, joint pain controlled. Plan remains the same. Gael Simmons MD [facility] Medicine Staff PAGER: [phone] DATE of Service: 09/02/2017 TIME of Service: 10:45 AM PROTIME Collected: 09/02/2017 Status: F Source: [place] 5:15 AM [facility] REPOSITORY TYPE CODE TESTS RESULT OUT OF RANGE REFERENCE UNITS LAB PSEC 9.7-13.0 sec High PT Sec 17.2 LAB INR 0.9-1.3 High PT INR 1.7 Result Comment: Vitamin K Antagonist (VKA) Therapeutic Range: INR 2 to 3 (Target INR of 2.5) Note: For patients treated with VKA drugs, such as warfarin, the [employer] 2012 Guideline recommends a therapeutic INR range of 2 to 3 (target INR of 2.5). This recommendation includes high-risk patients with antiphospholipid syndrome with previous arterial or venous thromboembolism, current-generation mechanical or bioprosthetic aortic heart valve replacement. Note: Patients with mechanical aortic valve replacement and additional risk factors for thromboembolic events (atrial fibrillation, previous thromboembolism, LV dysfunction, hypercoagulable conditions) or an older generation mechanical AVR (i.e., ball in-Cage) or any mechanical MVR should have a INR therapeutic range of 2.5 to 3.5 (target INR of 3). Michael GH, et al. Chest 2012, 141:7S-47S Diogenes RA, et al. [facility] 2017, 70: 252-289 Performed By: #### PT, PTT, MG1, PHOS, CBCDIF #### [facility] [address] [address] APTT Collected: 09/02/2017 Status: F Source: [place] 5:15 AM [facility] REPOSITORY TYPE CODE TESTS RESULT OUT OF RANGE REFERENCE UNITS LAB APTT 23.0-32.4 sec High APTT 37.3 Result Comment: Unfractionated Heparin Therapeutic Ranges: Standard Heparin Nomogram: 53 to 78 seconds (anti-Xa level of 0.3 to 0.7 U/ml) Low Dose/ACS Nomogram: 49 to 67 seconds (anti-Xa level of 0.2 to 0.5 U/ml) Stroke Treatment Nomogram: 49 to 67 seconds (anti-Xa level of 0.2 to 0.5 U/ml) Note: The APTT therapeutic range has been determined for the current lot of laboratory APTT reagent in use throughout the [facility]. Performed By: #### PT, PTT, MG1, PHOS, CBCDIF #### [facility] [address] [place] [address] MAGNESIUM Collected: 09/02/2017 Status: F Source: [place] 5:15 AM [facility] REPOSITORY TYPE CODE TESTS RESULT OUT OF REFERENCE UNITS RANGE LAB MG 1.7-2.3 mg/dL Magnesium 1.9 Performed By: #### PT, PTT, MG1, PHOS, CBCDIF #### [place] [address] PHOSPHORUS Collected: 09/02/2017 Status: F Source: [place] 5:15 AM [facility] REPOSITORY TYPE CODE TESTS RESULT OUT OF REFERENCE UNITS RANGE LAB PHOS 2.7-4.8 mg/dL Phosphorus 3.5 Performed By: #### PT, PTT, MG1, PHOS, CBCDIF #### [place] [address] CBC AND DIFFERENTIAL Collected: 09/02/2017 Status: F Source: [place] 5:15 AM [facility] REPOSITORY TYPE CODE TESTS RESULT OUT OF RANGE REFERENCE UNITS LAB WBC 3.70-11.00 k/uL Low WBC 1.58 Result Comment: Result checked and verified No clot detected. LAB RBC 3.90-5.20 m/uL RBC Low 2.74 LAB HGB 11.5-15.5 g/dL Hemoglobin Low 7.2 LAB HCT 36.0-46.0 % Hematocrit Low 24.1 LAB MCV 80.0-100.0 fL MCV 88.0 LAB MCH 26.0-34.0 pG MCH 26.3 LAB MCHC 30.5-36.0 g/dL MCHC Low 29.9 LAB RDWCV 11.5-15.0 % RDW-CV High 22.4 LAB PLTCT 150-400 k/uL Platelet Count 60 Low LAB MPV 9.0-12.7 fL MPV <<DO NOT REPORT>> LAB ANEUT % Neut% 83.1 LAB AANEUT 1.45-7.50 k/uL Abs Neut Low 1.31 LAB ALYMP % Lymph% 7.1 LAB AALYMP 1.00-4.00 k/uL Abs Lymph Low 0.11 LAB AMONO % [place]% 3.8 LAB AAMONO <0.87 k/uL Abs [place] 0.06 LAB AEOS % Eosin% 3.3 LAB AAEOS <0.46 k/uL Abs Eosin 0.05 LAB ABASO % Baso% 2.7 LAB AABASO <0.11 k/uL Abs Baso 0.04 LAB NRBC 0 /100 WBC NRBCs 1 High LAB ACAIMI Acanthocytes Few LAB ANIIMI Anisocytosis Present LAB OVAIMI Ovalocytes Few LAB POLIMI Polychromasia Slight LAB RCFIMI RBC Fragments Few LAB TEAIMI Tear Drop Cells Few LAB PLTEST Platelet Estimate Platelet estimate decreased LAB DTYP DTYPE Manual Diff Performed By: #### PT, PTT, MG1, PHOS, CBCDIF #### [facility] [address] [place] [id number] CONSULT PROG Observed: 09/01/2017 Status: COMPLETED Source: [place] 1:26 PM [facility] [place] REPOSITORY HNO ID: [id number] Author: Dominique Wright Service: Infectious Disease Author Type: Physician Type: Consult Progress Note Filed: 09/01/2017 1:36 PM Note Text: INFECTIOUS DISEASE CONSULT SERVICE PROGRESS NOTE Date: September 01, 2017 Patient Name: Paloma Cannon Interval History: Doing well. Jesus Alberto catheter removed yesterday. Has gravelly feeling around joints, thinks it may be due to the daptomycin, had same thing previously. No muscle pain. MEDICATIONS Current Facility-Administered Medications: pantoprazole DR 40 mg tab(s) (PROTONIX) 40 mg ORAL DAILY (6 AM) HYDROmorphone 0.5 mg injection (DILAUDID) 0.5 mg INTRAVENOUS q 6 H PRN fondaparinux 2.5 mg injection (ARIXTRA) 2.5 mg SUBCUTANEOUS q 24 HR DAPTOmycin 400 mg in NaCl (PF) 0.9% 8 mL (CUBICIN) 400 mg INTRAVENOUS q 24 HR diphenhydrAMINE 25 mg in D5W 50 mL 25 mg INTRAVENOUS PRN prochlorperazine 5 mg injection (COMPAZINE) 5 mg INTRAVENOUS q 4 H PRN metroNIDAZOLE 500 mg PREMIX piggyback (FLAGYL) 500 mg INTRAVENOUS q 8 H sulfamethoxazole-trimethoprim 800-160 mg 1 tablet (BACTRIM DS,SEPTRA DS) 1 tablet ORAL -WE- gabapentin 300 mg cap(s) (NEURONTIN) 300 mg ORAL q 8 H predniSONE 10 mg tab(s) (DELTASONE) 10 mg ORAL DAILY 0.9% NaCl 10 mL 10 mL INTRAVENOUS q 12 H 0.9% NaCl 20 mL 20 mL INTRAVENOUS PRN warfarin order for discharge OTHER PRN Current antibiotics: daptomycin 6 mg/kg daily Flagyl Examination: BP 120/63 Pulse 95 Temp 36.3 ?C (97.4 ?F) (Oral) Resp 14 Ht 160 cm (5' 2.99) Wt 98 kg (216 lb 0.8 oz) SpO2 100% BMI 38.28 kg/m2 Alert, oriented, appears well HEENT no conjunctival lesions, no thrush NECK supple, no LAD CHEST clear, right samantha now removed, dressing in place, left pheresis catheter removed, site benign HEART regular, no MRG ABDO soft, nontender, mild distension EXTREM bilateral LE symmetric erythema of lower legs to ankle, blanches to pressure, nontender ?? Laboratory data: WBC 1.43, HCT 24, PLTs 53 ?? Microbiology data: 09/01: blood x 2 NGTD 08/30: blood Jesus Alberto cath x 2 GPC clusters and E faecalis 08/28: blood x 2 NGTD 08/26: blood catheter MRSE, blood peripheral NGTD 08/25 blood x 2 E faecalis and now MRSE 2 of 2 sets from and periphery 08/25: stool C diff ?? Imaging data: CXR reviewed, no infiltrates ?? ASSESSMENT:? 1. Antiphospholipid syndrome?(on plasmapheresis- PLEX every other week, prednisone?5/10mg) 2. 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 stents and Endoglix AFX endograft at the inferior vena caval bifurcation) on warfarin,?extensive thrombectomy at outside hospital for right lower extremity and IVC thrombus. 3. DAH x 5 4. HFpEF due to Rituximab. 5.?MRSE BSI attributed to tunneled catheter treated with 6 weeks of iv daptomycin in 02/02. ?? Admitted with fever and diarrhea. Found to have recurrence of C diff colitis and E faecalis+ MRSE?BSI. Suspected primary line infection (grew?from line in 12 hours compared to 20 hours from periphery). Presence of MRSE argues against GI source. UA not suggestive of urinary source. Samantha removed, but then with identification of jesus alberto/pheresis catheter infection. Jesus Alberto removed 08/31. Needs pheresis next week. ?? RECOMMENDATIONS:? 1. Continue daptomycin to 6 mg/kg daily 2. Continue flagyl 500 mg TID for C diff x 14 days 4. If 09/01 blood cultures remain negative can replace pheresis catheter early next week. Will defer to IR about most appropriate site. No tunnel tract infection from previous lines so I would not restrict the site specifically. 5. Will anticipate writing copat early next week. Dr. Menard available for questions over the weekend. I will be back on Monday ? Signature: Dominique Wright MD September 01, 2017 1:35 p.m. PROGRESS Observed: 09/01/2017 Status: COMPLETED Source: [place] 11:15 AM [facility] REPOSITORY [facility] ID: [id number] Author: Gael Simmons Service: Hospital Medicine Author Type: Physician Type: Progress Notes Filed: 09/01/2017 11:59 AM Note Text: [facility] - [facility] Progress Note PATIENT NAME: Paloma Cannon Brief Plan for Today - Continue Daptomycin and Flagyl - Monitor blood cultures - Monitor clinical status Interval History No acute events overnight, afebrile 48 hours, HDS, overall feels well Body aches somewhat improved, Johnny catheter removed without complications INR was 1.8 yesterday. Vascular medicine consulted and recommended Fondaparinaux prophylactic dose till new line insertion and then restarting warfarin. Medications Current Facility-Administered Medications: pantoprazole DR 40 mg tab(s) (PROTONIX) 40 mg ORAL DAILY (6 AM) HYDROmorphone 0.5 mg injection (DILAUDID) 0.5 mg INTRAVENOUS q 6 H PRN fondaparinux 2.5 mg injection (ARIXTRA) 2.5 mg SUBCUTANEOUS q 24 HR DAPTOmycin 400 mg in NaCl (PF) 0.9% 8 mL (CUBICIN) 400 mg INTRAVENOUS q 24 HR diphenhydrAMINE 25 mg in D5W 50 mL 25 mg INTRAVENOUS PRN prochlorperazine 5 mg injection (COMPAZINE) 5 mg INTRAVENOUS q 4 H PRN metroNIDAZOLE 500 mg PREMIX piggyback (FLAGYL) 500 mg INTRAVENOUS q 8 H sulfamethoxazole-trimethoprim 800-160 mg 1 tablet (BACTRIM DS,SEPTRA DS) 1 tablet ORAL gabapentin 300 mg cap(s) (NEURONTIN) 300 mg ORAL q 8 H predniSONE 10 mg tab(s) (DELTASONE) 10 mg ORAL DAILY 0.9% NaCl 10 mL 10 mL INTRAVENOUS q 12 H 0.9% NaCl 20 mL 20 mL INTRAVENOUS PRN warfarin order for discharge OTHER PRN Physical Exam BP 127/63 Pulse 94 Temp 36.7 ?C (98.1 ?F) (Oral) Resp 16 Ht 160 cm (5' 2.99) Wt 98 kg (216 lb 0.8 oz) SpO2 97% BMI 38.28 kg/m2 General: No acute distress. AANDOx3. HEENT: PERRLA. EOMi. Neck: No swellings. Both Samantha and Johnny catheters removed, clean sites. CV: Normal rate and rhythm. Resp: CTA b/l. Maintained sats on baseline NC 2L Abdomen: Soft, nontender, bowel sounds presents, decreased distension Extremities: No pedal edema b/l. Neuro: CN II-XII Grossly Intact. Fluid Balance Intake/Output Summary (Last 24 hours) at 09/01/17 1115 Last data filed at 09/01/17 1000 Gross per 24 hour Intake 320 ml Output 150 ml Net 170 ml Assessment and Plan The patient is a 27 year old female with a Gram-positive bacteremia in the setting of C difficile Colitis, pancytopenia, and CAPRICE. ? 1.) Sepsis d/t E fecalis Presented with fever + nausea/vomiting, 2/2 blood cultures from 08/25 showed Gram-positive cocci in pairs + chains, currently afebrile and hemodynamically stable BCX from 08/28 NG x 24 hrs Plan: - Quiñonez sensitive E fecalis; - Needs coverage for MRSE so switched from Ampicillin to daptomycin 2.) MRSE bacteremia 3 line cultures positive for MRSE (2/2 x2/16 and 1/2 x2/17) Needs coverage for MRSE Prior adverse reaction to vancomycin - CAPRICE Culture from Samantha and Johnny catheter - Both catheters removed Plan: - Switch to Daptomycin - Follow up cultures after removal of catheters ? 3.) C difficile Colitis Multiple bouts of diarrhea on presentation, C difficile assay positive Plan: - metronidazole - contact precautions ? 4.) Pancytopenia Unclear etiology, possibly related to medications (cyclophosphamide or bactrim she's been taking for PJP prophylaxis), reticulocyte count 1.5% (inadequate bone marrow compensation) CMV negative Fluctuating counts Plan: - Monitor counts - Hold cyclophosohamide - Fungal battery 4.) CAPRICE Elevated Cr (baseline about 1), UA was clean with no signs of infection, FENa < 1%, likely pre-renal from dehydration 2/2 diarrhea with hypotension from bacteremia Plan: - Returning to baseline - strict IANDOs - avoid nephrotoxins - avoid NSAIDS + iv contrast - iv fluids as necessary 5.) APS Subtherapeutic INR at 1.8 Heparin not an option due to HIT Warfarin not an option due to anticipated line removal and placement in next few days Plan: - Appreciate vascular medicine recommendations - Fondaparinaux 2.5 mg OD ? Chronic Problems: 1. Anti-phospholipid Syndrome 2. Hypertension 3. HFpEF - f/u ECHO 4. Heparin-induced Thrombocytopenia 5. 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 GERD ? Other: Diet: Regular GI AND DVT Prophylaxis: warfarin PT/OT Disposition Recs: N/A Code Status: Full code ? Case to be discussed with staff, Dr Simmons SIGNATURE: [place] [id number] DATE of SERVICE: September 01, 2017 TIME of SERVICE: 11:[address] FRED STONE, SR. HOSPITAL STAFF PHYSICIAN NOTE OF PERSONAL INVOLVEMENT IN CARE I have reviewed the documentation obtained and documented by the team healthcare provider (fellow, resident, nurse practitioner or physician child nutrition assistant) and I personally participated in the fernandes components. I have discussed the case and management of the patient's care and the note has been revised / addended to reflect my direct input. Jesus Alberto catheter out and she feels better Counts continue to fall Cont current abx ? New TAC early next week Gael Simmons MD FACP [facility] Medicine Staff PAGER: [phone] DATE of Service: 09/01/2017 TIME of Service: 11:58 AM CASE MANAGEM Observed: 09/01/2017 Status: COMPLETED Source: [place] 9:10 AM [facility] REPOSITORY HNO ID: [id number] Author: Dary (Rn) JEFF Jimenes Service: Care Management Author Type: Registered Nurse Type: Care Mgt Progress Note Filed: 09/01/2017 9:18 AM Note Text: CARE MANAGEMENT PROGRESS NOTE SERVICE DATE: 09/01/2017 SERVICE TIME: 9:10 AM LOS: 7 days Needs Prior to Discharge: Procedure;To Be Determined Procedure Needed: needs new line placed Patient will need a new line placed for pheresis treatments. Likely place new line early next week, per patient she is due for her pheresis Monday. Poss IV abx at DC. No W/E DC. TCC/SW to follow For W/E CM p#[id number] SIGNATURE: Dary Jimenes RN PATIENT NAME: Paloma Cannon DATE: September 01, 2017 TIME: 9:10 AM PAGER/CONTACT #: [phone] Observed: 09/01/2017 Status: F Source: [place] BLOOD CULTURE 8:01 AM [facility] REPOSITORY Culture Result - No growth 5 days Performed By: #### BLCUL #### [facility] [address] [address] Observed: 09/01/2017 Status: F Source: [place] BLOOD CULTURE 7:49 AM [facility] REPOSITORY Culture Result - No growth 5 days Performed By: #### BLCUL #### [facility] [address] [address] PROTIME Collected: 09/01/2017 Status: F Source: [place] 5:15 AM [facility] REPOSITORY TYPE CODE TESTS RESULT OUT OF RANGE REFERENCE UNITS LAB PSEC 9.7-13.0 sec High PT Sec 17.5 LAB INR 0.9-1.3 High PT INR 1.8 Result Comment: Vitamin K Antagonist (VKA) Therapeutic Range: INR 2 to 3 (Target INR of 2.5) Note: For patients treated with VKA drugs, such as warfarin, the [place] [employer] 2012 Guideline recommends a therapeutic INR range of 2 to 3 (target INR of 2.5). This recommendation includes high-risk patients with antiphospholipid syndrome with previous arterial or venous thromboembolism, current-generation mechanical or bioprosthetic aortic heart valve replacement. Note: Patients with mechanical aortic valve replacement and additional risk factors for thromboembolic events (atrial fibrillation, previous thromboembolism, LV dysfunction, hypercoagulable conditions) or an older generation mechanical AVR (i.e., ball in-Cage) or any mechanical MVR should have a INR therapeutic range of 2.5 to 3.5 (target INR of 3). Michael GH, et al. Chest 2012, 141:7S-47S Diogenes RA, et al. [facility] 2017, 70: 252-289 Performed By: #### PT, PTT, CBCDIF #### [facility] [address], [place] [address] APTT Collected: 09/01/2017 Status: F Source: [place] 5:15 AM [facility] REPOSITORY TYPE CODE TESTS RESULT OUT OF RANGE REFERENCE UNITS LAB APTT 23.0-32.4 sec High APTT 35.7 Result Comment: Unfractionated Heparin Therapeutic Ranges: Standard Heparin Nomogram: 53 to 78 seconds (anti-Xa level of 0.3 to 0.7 U/ml) Low Dose/ACS Nomogram: 49 to 67 seconds (anti-Xa level of 0.2 to 0.5 U/ml) Stroke Treatment Nomogram: 49 to 67 seconds (anti-Xa level of 0.2 to 0.5 U/ml) Note: The APTT therapeutic range has been determined for the current lot of laboratory APTT reagent in use throughout the [facility]. Performed By: #### PT, PTT, CBCDIF #### [facility] [address], [place] [address] CBC AND DIFFERENTIAL Collected: 09/01/2017 Status: F Source: [place] 5:15 AM [facility] REPOSITORY TYPE CODE TESTS RESULT OUT OF RANGE REFERENCE UNITS LAB WBC 3.70-11.00 k/uL Low WBC 1.43 Result Comment: Result checked and verified No clot detected. LAB RBC 3.90-5.20 m/uL RBC Low 2.80 LAB HGB 11.5-15.5 g/dL Hemoglobin Low 7.4 LAB HCT 36.0-46.0 % Hematocrit Low 23.6 LAB MCV 80.0-100.0 fL MCV 84.3 LAB MCH 26.0-34.0 pG MCH 26.4 LAB MCHC 30.5-36.0 g/dL MCHC 31.4 LAB RDWCV 11.5-15.0 % RDW-CV High 21.8 LAB PLTCT 150-400 k/uL Platelet Count 53 Low LAB MPV 9.0-12.7 fL MPV <<DO NOT REPORT>> LAB ANEUT % Neut% 72.3 LAB AANEUT 1.45-7.50 k/uL Abs Neut Low 1.03 LAB ALYMP % Lymph% 5.6 LAB AALYMP 1.00-4.00 k/uL Abs Lymph Low 0.08 LAB AMONO % [place]% 13.0 LAB AAMONO <0.87 k/uL Abs [place] 0.19 LAB AEOS % Eosin% 6.1 LAB AAEOS <0.46 k/uL Abs Eosin 0.09 LAB ABASO % Baso% 2.6 LAB AABASO <0.11 k/uL Abs Baso 0.04 LAB AMETA % [place]% 0.4 LAB ANIIMI Anisocytosis Present LAB OVAIMI Ovalocytes Few LAB POLIMI Polychromasia Slight LAB RCFIMI RBC Fragments Few LAB PLTEST Platelet Estimate Platelet estimate decreased LAB DTYP DTYPE Manual Diff Performed By: #### PT, PTT, CBCDIF #### [facility] [address] [place], [place] [address] BRIEF OP NOT Observed: 08/31/2017 Status: COMPLETED Source: [place] 7:42 PM [facility] REPOSITORY HNO ID: [id number] Author: Nicholas Gee III Service: Radiology Author Type: Physician Type: Brief Op Note Filed: 08/31/2017 7:44 PM Note Text: RADIOLOGY BRIEF PROCEDURE NOTE Procedure Date: August 31, 2017 Incision/Procedure Start Time: 1907 Incision Close/Procedure End Time: 1915 UNIVERSAL PROTOCOL / SAFETY CHECKLIST Procedure to be performed: Removal of an indwelling tunnelled central venous catheter - left Sign in Communication: Completed Time Out: Team Confirms the Correct Patient, Correct Procedure, Correct Site and Site Marking, Correct Position (if applicable). Affirmation of Time Out: YES Sign Out Discussion: Completed Informed Consent obtained under separate note. ATTENDING RADIOLOGIST: Interventional: Dr. Nicholas Gee PRE-PROCEDURAL DIAGNOSIS: Catheter infection PROCEDURE: Other (specify) - Removal of an indwelling tunnelled central venous catheter - left MEDICAL HISTORY/PHYSICAL EXAM: Radiology personnel have verified that HANDP exists in patient record. Confirm Medication reconcilation, Allergies, Premedication, Labs, Baseline vital signs or Baseline neurological status unchanged. STATUS: Not applicable SUMMARY: Following full and informed consent the patient was brought to room 25, IR. Hagerman protocol performed. Subsequently, Removal of an indwelling tunnelled central venous catheter - left. POST-PROCEDURAL DIAGNOSIS: Same COMPLICATIONS: Estimated Blood Loss - minimal, None SPECIMENS: Not applicable DISPOSITION: Patient hemodynamically stable, alert and awake. Patient transferred to Radiology Recovery/PACU for monitoring prior to transfer to the general medical lowe. FULL DICTATION REPORT TO FOLLOW. SIGNATURE: Nicholas Gee III, MD PATIENT NAME: Paloma Cannon DATE: August 31, 2017 TIME: 7:42 PM PAGER/CONTACT #: [phone] IR CENTRAL LINE Observed: 08/31/2017 Status: F Source: [place] 7:16 PM [facility] REPOSITORY * * *Final Report* * * DATE OF EXAM: Aug 31 2017 7:16PM [facility] 0746 - IR CENTRAL LINE REMOVAL / PROCEDURE REASON: Bacteremia * * * * Physician Interpretation * * * * PROCEDURE: REMOVAL OF TUNNELED CENTRAL VENOUS CATHETER HISTORY: Indwelling left subclavian tunneled dialysis catheter. The primary service requests removal of the catheter due to concerns for infection. CONSENT: Risks, benefits, treatment options, potential complications and personnel to be involved were discussed (including the risks of radiation exposure, contrast and anesthesia administration, and any equipment needed for the procedure to ensure best possible outcome) with the patient and all questions were answered and consent was obtained prior to procedure. MEDICATION RECONCILIATION: The patient's medications and allergies were reviewed in the electronic medical record and reconciled to the proposed procedure/treatment. DAXA-PROCEDURE DISCUSSION: The appropriate elements of the pre-procedure discussion, safety check list and sign-out were performed. TIME OUT: A time out was performed immediately prior to procedure start with the nursing, and interventional team, correctly identifying the name, date of , procedure, anatomy (including marking of site and side if applicable), patient position, procedure consent form, relevant diagnostic and radiology test results, antibiotic administration if applicable, safety precautions, and procedure-specific equipment needs. Start of procedure: 1907 End of procedure: 1915 Patient position: Supine Anesthesia: After establishing pulse oximetry, BP and EKG monitoring by the Radiology nurse, moderate sedation with Versed and Fentanyl was administered. Intra-service time (monitoring for moderate sedation): 18 minutes Patient monitoring: I personally supervised and directed an independent trained observer who assisted in monitoring the patient?s level of consciousness and physiological status throughout the procedure. Local anesthesia: 2 % lidocaine TECHNIQUE: The patient's chest and neck were prepped and draped using all elements of maximal sterile barrier technique (cap, mask, sterile gown, sterile gloves, a large sterile sheet, hand hygiene and cutaneous antisepsis). After local anesthesia, the suture holding the catheter was severed and catheter was removed with gentle traction without any dissection. Hemostasis was obtained by direct manual compression. Sterile dressings were applied. The patient tolerated the procedure well. There were no significant complications and no other complications during the procedure. CONCLUSION: The patient was comfortable and was transferred to the regular nursing floor in stable condition. Estimated Blood Loss: Minimal Number and Type of Removed Specimens: 1: Microbiology ATTENDING RADIOLOGIST: Nicholas Gee III, M.D. PROFESSOR OF CHEMICAL ENGINEERING: None The procedure was performed by the: attending radiologist, without an child nutrition assistant. The attending radiologist performed the following procedural activities: Entire procedure IMPRESSION: SUCCESSFUL REMOVAL OF TUNNELED CENTRAL VENOUS CATHETER. Practice Support Specialist: MURTAZA Transcribe Date/Time: Sep 06 2017 12:59A Dictated by : NICHOLAS GEE III, MD This examination was interpreted and the report reviewed and electronically signed by: NICHOLAS GEE III, MD on Sep 06 2017 1:00AM EST Observed: 08/31/2017 Status: F Source: [place] CATH TIP CULTURE 7:00 PM [facility] REPOSITORY Sp. Request/Comment: - Specimen received in sterile container. Culture Result - <100 colony forming units per ml. Enterococcus faecalis --> ABNORMAL ALERT Cephalosporins, clindamycin, and TMP-SMX are not effective for the treatment of enterococcal infections. --> ABNORMAL ALERT Insignificant colony count. No further workup. --> ABNORMAL ALERT <100 colony forming units per ml. --> ABNORMAL ALERT Staphylococcus epidermidis --> ABNORMAL ALERT Insignificant colony count. No further workup. --> ABNORMAL ALERT Performed By: #### CTCUL #### [facility] [address] [place], [place] [address] HISTORY PHYSICAL Observed: 08/31/2017 Status: COMPLETED Source: [place] 6:38 PM [facility] REPOSITORY HNO ID: [id number] Author: Nicholas Gee III Service: Radiology Author Type: Physician Type: HANDP Filed: 08/31/2017 6:39 PM Note Text: UPDATED PROCEDURAL SEDATION HISTORY AND PHYSICAL EXAMINATION SERVICE DATE: 08/31/2017 SERVICE TIME: 1833 PHYSICAL EXAM MUST BE COMPLETED ON ADMISSION The History and Physical (completed in the past 30 days) has been reviewed and the patient has been examined. The contents accurately reflect the patient's condition with the following additions or revisions since the HANDP was completed. ASA Class: ASA Class:: Patient with mild systemic disease Examination indicates no changes. AIRWAY: Airway Visualization of Uvula: Yes Mouth opening greater than 2 fingerbreadths: Yes Neck Full Range of Motion: Yes LUNGS: Lungs clear to auscultation, Good diaphragmatic excursion CARDIAC: Normal S1 and S2; no rubs, murmurs, or gallops Provisional Diagnosis/Treatment Plan: TDC Removal SEDATION GOAL: Moderate This HANDP can be found in the Electronic Medical Record dated 08/25/2017. SIGNATURE: Nicholas Gee III, MD PATIENT NAME: Paloma Cannon DATE: August 31, 2017 TIME: 6:38 PM PAGER: [phone] PT ED Observed: 08/31/2017 Status: COMPLETED Source: [place] 6:37 PM [facility] REPOSITORY HNO ID: [id number] Author: Eugenia SanchezRnDevonte Hart RN Service: Nursing Author Type: Registered Nurse Type: Patient Education Filed: 08/31/2017 6:40 PM Note Text: PATIENT EDUCATION TOPIC: PROCEDURE / SURGERY: Pre Procedure Teaching: Logistics Protocols Complication Prevention Surgical Safety Principles PATIENT NAME: Paloma Cannon PATIENT LOCATION: [place] [address] READINESS TO LEARN COGNITIVE ABILITY: Alert and oriented MOTIVATION TO LEARN: Eager FAMILY SUPPORT: Unable to assess - Family not present INSTRUCTION PROVIDED TO: Patient PATIENT LEARNS BEST BY: Multiple Methods FACTORS AFFECTING LEARNING: Unable to assess PHYSICAL LIMITATIONS AFFECTING LEARNING: None LEARNING RESPONSE DIAGNOSIS: ADULT: MRSE PATIENT/FAMILY RESPONSE: Information received as demonstrated by interest and questions METHOD OF INSTRUCTION: Individual instruction Written instruction - handouts Verbal instruction FOLLOW-UP PLAN: Reinforce - Repeat previous content Recommend - Recommend continued instruction and follow up as directed INSTRUCTIONAL AIDS USED: NA SUPPLEMENTAL MATERIAL PROVIDED TO PATIENT: Procedure discharge instructions REFERRAL (RECOMMENDATION): None Electronically Signed By: Eugenia Hart RN NURSING PROG Observed: 08/31/2017 Status: COMPLETED Source: [place] 1:00 PM [facility] REPOSITORY HNO ID: [id number] Author: Lourdes (Rn) JEFF Stallworth Service: (none) Author Type: Registered Nurse Type: Nursing Progress Note Filed: 08/31/2017 5:04 PM Note Text: Nursing Progress Note Patient Name: Paloma Cannon Patient Location: [place] [id number]- Daily Note: 1230 report given to IR for pt removal of jesus alberto, IR notified RN to hold on to the angiomax and IR will call back. 1323 hrs, pt complained of pain joint pain, pt in tears, dilaudid given 1401 Dr Alexa davis and clarified about giving angiomax, per MD not to give it, MD will RN when to start. 1411 hrs - pt vomiting Prochloperazine given. pt resting at times. This note was completed by: Lourdes Stallworth RN CONSULT PROG Observed: 08/31/2017 Status: COMPLETED Source: [place] 12:50 PM [facility] REPOSITORY HNO ID: [id number] Author: Dominique Wright Service: Infectious Disease Author Type: Physician Type: Consult Progress Note Filed: 08/31/2017 12:57 PM Note Text: INFECTIOUS DISEASE CONSULT SERVICE PROGRESS NOTE Date: August 31, 2017 Patient Name: Paloma Cannon Interval History: Doing well. Improving diarrhea, stool more solid. Still with some abdominal cramping. MEDICATIONS Current Facility-Administered Medications: HYDROmorphone 0.5 mg injection (DILAUDID) 0.5 mg INTRAVENOUS q 6 H PRN bivalirudin 250 mg in D5W 250 mL (ANGIOMAX) 0.05 mg/kg/hr INTRAVENOUS CONTINUOUS DAPTOmycin 400 mg in NaCl (PF) 0.9% 8 mL (CUBICIN) 400 mg INTRAVENOUS q 24 HR diphenhydrAMINE 25 mg in D5W 50 mL 25 mg INTRAVENOUS PRN prochlorperazine 5 mg injection (COMPAZINE) 5 mg INTRAVENOUS q 4 H PRN metroNIDAZOLE 500 mg PREMIX piggyback (FLAGYL) 500 mg INTRAVENOUS q 8 H sulfamethoxazole-trimethoprim 800-160 mg 1 tablet (BACTRIM DS,SEPTRA DS) 1 tablet ORAL MO-WE- gabapentin 300 mg cap(s) (NEURONTIN) 300 mg ORAL q 8 H predniSONE 10 mg tab(s) (DELTASONE) 10 mg ORAL DAILY 0.9% NaCl 10 mL 10 mL INTRAVENOUS q 12 H 0.9% NaCl 20 mL 20 mL INTRAVENOUS PRN warfarin order for discharge OTHER PRN Current antibiotics: daptomycin 6 mg/kg daily Flagyl Examination: BP 138/69 Pulse 96 Temp 37.2 ?C (99 ?F) (Oral) Resp 16 Ht 160 cm (5' 2.99) Wt 98 kg (216 lb 0.8 oz) SpO2 93% BMI 38.28 kg/m2 Alert, oriented, appears well HEENT no conjunctival lesions, no thrush NECK supple, no LAD CHEST clear, right samantha now removed, dressing in place, left pheresis catheter benign appearing HEART regular, no MRG ABDO soft, nontender, mild distension EXTREM bilateral LE symmetric erythema of lower legs to ankle, blanches to pressure, nontender ?? Laboratory data: WBC 1.8, HCT 29, PLTs 83, Cr 0.93, INR 1.8 ?? Microbiology data: 08/28: blood x 2 NGTD 08/26: blood catheter MRSE, blood peripheral NGTD 08/25 blood x 2 E faecalis and now MRSE 2 of 2 sets from and periphery 08/25: stool C diff ?? Imaging data: CXR reviewed, no infiltrates ?? ASSESSMENT:? 1. Antiphospholipid syndrome?(on plasmapheresis- PLEX every other week, prednisone?5/10mg) 2. 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 stents and Endoglix AFX endograft at the inferior vena caval bifurcation) on warfarin,?extensive thrombectomy at outside hospital for right lower extremity and IVC thrombus. 3. DAH x 5 4. HFpEF due to Rituximab. 5.?MRSE BSI attributed to tunneled catheter treated with 6 weeks of iv daptomycin in 02/02. ?? Admitted with fever and diarrhea. Found to have recurrence of C diff colitis and E faecalis+ MRSE?BSI. Suspected primary line infection (grew?from line in 12 hours compared to 20 hours from periphery). Presence of MRSE argues against GI source. UA not suggestive of urinary source. Samantha removed, but now with identification of jesus alberto/pheresis catheter infection ?? RECOMMENDATIONS:? 1. Continue daptomycin to 6 mg/kg daily 2. Remove Jesus Alberto/pheresis catheter 3. Continue flagyl 500 mg TID for C diff 4. Once jesus alberto removed, obtain set of peripheral blood cutlures. 5. Can likely replace pheresis catheter early next week. Signature: Dominique Wright MD August 31, 2017 1 p.m. PROGRESS Observed: 08/31/2017 Status: COMPLETED Source: [place] 12:45 PM [facility] REPOSITORY HNO ID: [id number] Author: Gael Simmons Service: Hospital Medicine Author Type: Physician Type: Progress Notes Filed: 08/31/2017 1:05 PM Note Text: Medicine [place] - [facility]ul Marie Progress Note PATIENT NAME: Paloma Cannon Brief Plan for Today - Continue Daptomycin and Flagyl - Remove Johnny catheter - Will need tunneled dialysis catheter placed on Monday for PLEX session on Monday given she becomes culture negative x 48hrs - Iv dilaudid 0.5 mg PRN for generalized body pain - Bivalirudin as sub therapeutic INR - Consult to vascular medicine Interval History No acute events overnight, afebrile 48 hours, HDS Subjectively, c/o of bad generalized body ache, states she had similar pain last time she had bavcteremia. CDiff reynoso her symptoms have improved, no more diarrhea. However, she grew MRSE from the left sided Johnny catheter, so catheter to be removed today. She will need a new tunneled dialysis catheter on Monday prior to PLEX on Monday given she remains culture negative - Her INR is subtherapeutic today at 1.8, and she cannot be given heparin d/t hx of HIT. Starting on Bivalirudin, and consult to vascular medicine for further management. Holding Coumadin since new catheter will need to be placed. Medications Current Facility-Administered Medications: HYDROmorphone 0.5 mg injection (DILAUDID) 0.5 mg INTRAVENOUS q 6 H PRN bivalirudin 250 mg in D5W 250 mL (ANGIOMAX) 0.05 mg/kg/hr INTRAVENOUS CONTINUOUS DAPTOmycin 400 mg in NaCl (PF) 0.9% 8 mL (CUBICIN) 400 mg INTRAVENOUS q 24 HR diphenhydrAMINE 25 mg in D5W 50 mL 25 mg INTRAVENOUS PRN prochlorperazine 5 mg injection (COMPAZINE) 5 mg INTRAVENOUS q 4 H PRN metroNIDAZOLE 500 mg PREMIX piggyback (FLAGYL) 500 mg INTRAVENOUS q 8 H sulfamethoxazole-trimethoprim 800-160 mg 1 tablet (BACTRIM DS,SEPTRA DS) 1 tablet ORAL -WE- gabapentin 300 mg cap(s) (NEURONTIN) 300 mg ORAL q 8 H predniSONE 10 mg tab(s) (DELTASONE) 10 mg ORAL DAILY 0.9% NaCl 10 mL 10 mL INTRAVENOUS q 12 H 0.9% NaCl 20 mL 20 mL INTRAVENOUS PRN warfarin order for discharge OTHER PRN Physical Exam BP 138/69 Pulse 96 Temp 37.2 ?C (99 ?F) (Oral) Resp 16 Ht 160 cm (5' 2.99) Wt 98 kg (216 lb 0.8 oz) SpO2 93% BMI 38.28 kg/m2 General: No acute distress. AANDOx3. HEENT: PERRLA. EOMi. Neck: No swellings. Has Right sided Samantha catheter x 2 years for Iv access, Left sided Johnny catheter x 4 years for bi monthly PLEX CV: Normal rate and rhythm. Resp: CTA b/l. Maintained sats on baseline NC 2L Abdomen: Soft, nontender, bowel sounds presents, decreased distension Extremities: No pedal edema b/l. Neuro: CN II-XII Grossly Intact. Fluid Balance Intake/Output Summary (Last 24 hours) at 08/31/17 1246 Last data filed at 08/31/17 0900 Gross per 24 hour Intake 660 ml Output 100 ml Net 560 ml Assessment and Plan The patient is a 27 year old female with a Gram-positive bacteremia in the setting of C difficile Colitis, pancytopenia, and CAPRICE. ? 1.) Sepsis d/t E fecalis Presented with fever + nausea/vomiting, 2/2 blood cultures from 08/25 showed Gram-positive cocci in pairs + chains, currently afebrile and hemodynamically stable BCX from 08/28 NG x 24 hrs Plan: - Quiñonez sensitive E fecalis; - Needs coverage for MRSE so switched from Ampicillin to daptomycin 2.) MRSE bacteremia 3 line cultures positive for MRSE (08/11 x2/ and 07/11 x2/) Needs coverage for MRSE Prior adverse reaction to vancomycin - CAPRICE Culture from Samantha and Johnny catheter Plan: - Switch to Daptomycin - remove Johnny catheter ? 3.) C difficile Colitis Multiple bouts of diarrhea on presentation, C difficile assay positive Plan: - metronidazole - contact precautions ? 4.) Pancytopenia Unclear etiology, possibly related to medications (cyclophosphamide or bactrim she's been taking for PJP prophylaxis), reticulocyte count 1.5% (inadequate bone marrow compensation) CMV negative Plan: - Hold cyclophosohamide - fungal battery 4.) CAPRICE Elevated Cr (baseline about 1), UA was clean with no signs of infection, FENa < 1%, likely pre-renal from dehydration 2/2 diarrhea with hypotension from bacteremia Plan: - Returning to baseline - strict IANDOs - avoid nephrotoxins - avoid NSAIDS + iv contrast - iv fluids as necessary 5.) APS Subtherapeutic INR at 1.8 Heparin not an option due to HIT Warfarin not an option due to anticipated line removal and placement in next few days Plan: - Bival vs Fondaparinux - Consult to [facility] medicine ? Chronic Problems: 1. Anti-phospholipid Syndrome 2. Hypertension 3. HFpEF - f/u ECHO 4. Heparin-induced Thrombocytopenia 5. 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 GERD ? Other: Diet: Regular GI AND DVT Prophylaxis: warfarin PT/OT Disposition Recs: N/A Code Status: Full code ? Case to be discussed with staff, Dr Simmons SIGNATURE: [place] [id number] DATE of SERVICE: August 31, 2017 TIME of SERVICE: 12:[address] FRED STONE, SR. HOSPITAL STAFF PHYSICIAN NOTE OF PERSONAL INVOLVEMENT IN CARE I have reviewed the documentation obtained and documented by the team healthcare provider (fellow, resident, nurse practitioner or physician child nutrition assistant) and I personally participated in the fernandes components. I have discussed the case and management of the patient's care and the note has been revised / addended to reflect my direct input. Jesus Alberto c/s positive, will need to be removed - we will schedule. Cont Dapto / Flagyl Appreciate [facility] med input, likely fondarinux SQ low dose for now. No further evidence of DAH Some joint pain she says occurred with BSI in the past Gael Simmons MD FACP [facility] Medicine Staff PAGER: [phone] DATE of Service: 08/31/2017 TIME of Service: 1:03 PM CONSULT Observed: 08/31/2017 Status: COMPLETED Source: [place] 12:00 PM [facility] REPOSITORY HNO ID: [id number] Author: Darcie Choi MD Service: Vascular Medicine Author Type: Physician Type: Consults Filed: 08/31/2017 7:33 PM Note Text: VASCULAR MEDICINE INITIAL CONSULT Requesting Provider: IM Opinion/advice regarding: subtherapeutic INR, APS, remote hx of HIT Subjective CHIEF COMPLAINT: n/v fever, diarrhea HPI: This is a 27 year old female well known to [facility] service for a hx of APS on long-term AC w/warfarin, IVC thrombosis, w/IVC stent, hepatic vein thrombosis, remote HIT and DAH w/scheduled plasmapheresis. Other pertinent past medical history include HF and CKD. Her warfarin is followed by given her APS. Dr. Andujar manages her PLEX. She presented on 08/25 w/high fevers, n/v and intolerance to PO. She was found to have positive blood cultures and positive c diff. In addition she was neutropenic in the setting of recently starting Cytoxan for her hx of DAH which is now being held in light of her BSI and neutropenia. VM was consulted for subtherapeutic INR and hx of HIT. Pt's INR was allowed to drift down for Samantha and plasmapheresis catheter removal. INR today is 1.8. Pt reports no hemoptysis. No leg swelling PAST MEDICAL HISTORY Diagnosis Date - (HFpEF) heart failure with preserved ejection fraction (HCC) 02/20/2016 HFpEF w last EF 50-55% On Torsemide, coreg, hydralazine and imdur at home No signs of acute exacerbation on admission Plan: -Continue home medications - Anasarca 11/29/2013 - Anemia 03/10/2015 Chronic microcytic anemia. 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 Thrombosis, and Diffuse Alveolar Hemorrhage. On Warfarin and PLEX (Twice Weekly)? Plan: -Warfarin 5mg qday-holding for planned EGD on 01/11 d/t supra therapeutic INR -Cont. PO Prednisone 10mg MWFS and 5mg TTS -Pantoprazole for GI PPx of Above -Apharesis was supposed to be yesterday, will contact plasmapheresis team on recommendations - Antiphospholipid syndrome (HCC) - Catastrophic Antiphospholipid antibody syndrome 11/09/2013 - Cholelithiasis 01/11/2017 Likely cause of recent pancreatitis. Plan: Per general surgery, no acute surgical intervention at this time. Will await results of EGD. If active gastritis, favor outpatient cholecystectomy. If no active gastritis on EGD, plan for cholecystectomy this admission. 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 - PAST SURGICAL HISTORY OF Adenoidectomy - PICC LINE INSERT/CONSULT 11/29/2013 - PICC LINE INSERT/CONSULT 03/10/2015 - PICC LINE INSERT/CONSULT 02/20/2016 FAMILY HISTORY: FAMILY HISTORY Problem Relation Age of Onset - Breast Cancer Mother spine BRCA neg - Ovarian cyst [OTHER] Mother - ovarian cyst [OTHER] Sister - Thyroid No Family History SOCIAL HISTORY: Social History Marital status: Spouse name: Years of education: Number of children: Occupational History 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 2 caps - 7 days; 3 caps- 7 days; 4 caps daily thereafter predniSONE (DELTASONE) 5 mg tablet Take by mouth daily. 20 mg - Jun; 15 mg - Jul; 10 mg - Aug; 5 mg - Sep onwards sulfamethoxazole-trimethoprim (BACTRIM DS) 800-160 mg per tablet Take 1 tablet by mouth every Monday,Monday,Monday. carvedilol (COREG) 25 mg tablet Take 1 tablet by mouth twice daily with meals. HOLD FOR SBP <110 AND HR <60 hydrALAZINE (APRESOLINE) 100 mg tablet Take 1 tablet by mouth every 8 hours. HOLD FOR SBP <110 amLODIPine (NORVASC) 5 mg tablet Take 1 tablet by mouth once daily. HOLD FOR SBP <120 torsemide (DEMADEX) 20 mg tablet Take 2 tablets by mouth once daily. gabapentin (NEURONTIN) 300 mg capsule Please take gabapentin 200 mg three times daily for 3 days.If you tolerate it, increase to 300 mg three times a day for 3 days.If you tolerate it, increase to 600 mg at bedtime and 300 mg daytime for 3 days.If you tolerate it, increase to 600 mg three times a day for 3 days.If you tolerate it, increase to 900 mg at bedtime and 600 mg daytime for 3 days.If you tolerate it, increase to 900 mg three times a day for 3 days. fluticasone (FLONASE) 50 mcg/actuation nasal spray Use 1 [place] in each nostril once daily. warfarin (COUMADIN) 5 mg tablet take by mouth as directed in the evening to keep INR between 2.0-3.[address] (PROTONIX) 40 mg tablet Take 1 tablet by mouth DAILY (6 AM). isosorbide mononitrate ER (IMDUR) 30 mg 24 hr tablet Take 2 tablets by mouth once daily. Please hold if your blood pressure is less than 120/80. cetirizine 10 mg tablet Take 1 tablet by mouth once daily. senna 8.6 mg tab Take 1 tablet by mouth twice daily as needed. Miscellaneous Medical Supply [facility] [place] 1 package 30 - 40 mmHg pressure panty hose compression stockings. Current Facility-Administered Medications: HYDROmorphone 0.5 mg injection (DILAUDID) 0.5 mg INTRAVENOUS q 6 H PRN bivalirudin 250 mg in D5W 250 mL (ANGIOMAX) 0.05 mg/kg/hr INTRAVENOUS CONTINUOUS DAPTOmycin 400 mg in NaCl (PF) 0.9% 8 mL (CUBICIN) 400 mg INTRAVENOUS q 24 HR diphenhydrAMINE 25 mg in D5W 50 mL 25 mg INTRAVENOUS PRN prochlorperazine 5 mg injection (COMPAZINE) 5 mg INTRAVENOUS q 4 H PRN metroNIDAZOLE 500 mg PREMIX piggyback (FLAGYL) 500 mg INTRAVENOUS q 8 H sulfamethoxazole-trimethoprim 800-160 mg 1 tablet (BACTRIM DS,SEPTRA DS) 1 tablet ORAL MO-WE- gabapentin 300 mg cap(s) (NEURONTIN) 300 mg ORAL q 8 H predniSONE 10 mg tab(s) (DELTASONE) 10 mg ORAL DAILY 0.9% NaCl 10 mL 10 mL INTRAVENOUS q 12 H 0.9% NaCl 20 mL 20 mL INTRAVENOUS PRN warfarin order for discharge OTHER PRN ALLERGIES Allergen Reactions - Rhubarb Rash, Hives - Heparin Other: See Comments Per patient history of HIT - was on angiomax however then took l fondaparinux for bridging to coumadin. - Iv Contrast [Iodine] Other: See Comments shuts kidneys down per patient - Rituximab Other: See Comments Elevated cardiac enzymes Objective REVIEW OF SYSTEMS: GENERAL: Fever: YES, on admission Chills: No Night sweats: No Changes in weight: No NEUROLOGICAL: Headaches: No Seizures: No Passing out: No Numbness, tingling or sensation of pins and needles: No HEAD, EYES, EARS, NOSE, AND THROAT: Changes in hearing: No Changes in vision: No Nose bleeds: No CARDIOVASCULAR: Chest pain or pressure: No Palpitations: No Irregular heart rate: No RESPIRATORY: Cough: No Wheezing: No Shortness of breath: No Shortness of breath with exertion: No Coughing up blood: No GASTROINTESTINAL: Abdominal discomfort: No Nausea: Yes on presentation Vomiting: Yes on presentation Diarrhea:Yes on presentation Constipation: No Difficulty swallowing: No Pain with swallowing: No Stomach pain after eating: No Passing blood with bowel movement: No Black tarry stool: No GENITOURINARY: Pain with urination: No Blood in urine: No EXTREMITY: Edema (swelling): No Pain with walking: No MUSCULOSKELETAL: Joint pain: No Joint swelling: No Back pain: No Muscle pain or ache: No SKIN: Rash: No Lesions: No Sores: No Ulcers: No Tenderness: No Skin cancer: No HEMATOLOGY: Easy bruising: No Blood transfusions: No PHYSICAL EXAM: Vital Signs: BP 138/69 Pulse 96 Temp 37.2 ?C (99 ?F) (Oral) Resp 16 Ht 160 cm (5' 2.99) Wt 98 kg (216 lb 0.8 oz) SpO2 93% BMI 38.28 kg/m2 General: alert and oriented x3 Cardiac: RRR Respiratory: clear B/L Abdominal/GI: soft, obese, Extremity: trace LE edema, chronic skin changes Skin: warm, dry Pulse/vascular exam: B/L + 2 rad/dp DATA: Diagnostic tests reviewed for today's visit: Most recent labs and imaging results. Most recent labs CBC, Coags, BMP, Mg, Phos Recent Labs 08/31/17 0435 08/30/17 0323 08/29/17 0616 08/29/17 0407 WBC 1.87* 1.34* -- 1.21* HB 8.9* 7.4* -- 7.4* HCT 29.5* 24.1* -- 23.3* PLT 83* 89* -- 81* INR 1.8* 2.3* -- 2.8* NA -- 138 139 -- K -- 3.8 3.7 -- CHLOR -- 106* 106* -- CO2 -- -- BUN -- 8 10 -- CREAT -- 0.93 1.04* -- GLUC -- 70* 69* -- CA -- 7.9* 8.0* -- MG -- 2.0 -- -- P -- 2.5* -- -- Impression/Recommendations 27 year old female well known to [facility] Med service for a hx of APS on long-term AC w/warfarin, IVC thrombosis, w/IVC stent, hepatic vein thrombosis, remote HIT and DAH w/scheduled plasmapheresis. Other pertinent past medical history include HF and CKD. Her warfarin is followed by given her APS. Dr. Andujar manages her PLEX. She presented on 08/25 w/high fevers, n/v and intolerance to PO. She was found to have positive blood cultures and positive c diff. In addition she was neutropenic in the setting of recently starting Cytoxan for her hx of DAH which is now being held in light of her BSI and neutropenia. VM was consulted for subtherapeutic INR and hx of HIT. Pt's INR was allowed to drift down for Samantha and plasmapheresis catheter removal. INR today is 1.8. Estimated Creatinine Clearance: 100.4 mL/min (based on Cr of 0.93). Recommendations: start Fondaparinux 2.5 mg SC for DVT prophylaxis maintain this through the weekend, once new central lines are placed after negative blood cultures and no further procedures planned then would increase to therapeutic AC w/fondarpinux 7.5 mg as a bridge to warfarin (can be completed outpatient) CBC/INR/aptt daily given no recent hx of acute VTE would favor more conservative approach rather than using IV bivalirudin until new lines can be placed above recommendations discussed w/Dr. Choi SIGNATURE: Paulette Naranjo CNP PATIENT NAME: Paloma Cannon DATE: August 31, 2017 TIME: 12:01 PM PAGER/CONTACT #: [phone] . Staff addendum: I interviewed and examined Paloma Aiken Davis, and reviewed and confirmed the findings of the GENERATION MECHANIC HELPER with additional comments below. The assessment and plan was formulated in discussion with the patient and GENERATION MECHANIC HELPER, and is also outlined below. Pleasant 27yo F well known to our service due to hx of APS with hx of prior VTE, on fpc anticoagulation with warfarin, and additional complications related to her APS including DAH. Has actually been doing better in recent months with tx with cytoxan and PLEX. Unfortunately admitted now for C diff and enterococcus bacteremia in setting of neutropenia. She is being planned for line holiday / exchange. We are consulted for anticoag mgmt given APS and also hx of HIT -- cannot receive any heparin products, including no LMWH. As her Cr is currently normal, reasonable to use fondaparinux to avoid need for bival (IV access difficult as lines are being removed, and frequent lab draws). OK to use prophy dose fondaparinux 2.5mg SC QD as outlined above prior to procedure. After lines are replaced and no additional procedures are planned, then would anticipate bridging back to warfarin using full therapeutic fondaparinux 7.5mg QD. Monitor for bleeding. Daily CBC+plt, PT/INR, aPTT. Darcie Choi MD Vascular Medicine Staff PROTIME Collected: 08/31/2017 Status: F Source: [place] 4:35 AM [facility] REPOSITORY TYPE CODE TESTS RESULT OUT OF RANGE REFERENCE UNITS LAB PSEC 9.7-13.0 sec High PT Sec 18.2 LAB INR 0.9-1.3 High PT INR 1.8 Result Comment: Vitamin K Antagonist (VKA) Therapeutic Range: INR 2 to 3 (Target INR of 2.5) Note: For patients treated with VKA drugs, such as warfarin, the [employer] 2012 Guideline recommends a therapeutic INR range of 2 to 3 (target INR of 2.5). This recommendation includes high-risk patients with antiphospholipid syndrome with previous arterial or venous thromboembolism, current-generation mechanical or bioprosthetic aortic heart valve replacement. Note: Patients with mechanical aortic valve replacement and additional risk factors for thromboembolic events (atrial fibrillation, previous thromboembolism, LV dysfunction, hypercoagulable conditions) or an older generation mechanical AVR (i.e., ball in-Cage) or any mechanical MVR should have a INR therapeutic range of 2.5 to 3.5 (target INR of 3). Michael GH, et al. Chest 2012, 141:7S-47S Diogenes RA, et al. [facility] 2017, 70: 252-289 Performed By: #### PT, CBCDIF #### [facility] [address] [place], [place] [address] CBC AND DIFFERENTIAL Collected: 08/31/2017 Status: F Source: [place] 4:35 AM [facility] REPOSITORY TYPE CODE TESTS RESULT OUT OF RANGE REFERENCE UNITS LAB WBC 3.70-11.00 k/uL Low WBC 1.87 Result Comment: Result checked and verified No clot detected. LAB RBC 3.90-5.20 m/uL RBC Low 3.49 LAB HGB 11.5-15.5 g/dL Hemoglobin Low 8.9 LAB HCT 36.0-46.0 % Hematocrit Low 29.5 LAB MCV 80.0-100.0 fL MCV 84.5 LAB MCH 26.0-34.0 pG MCH Low 25.5 LAB MCHC 30.5-36.0 g/dL MCHC Low 30.2 LAB RDWCV 11.5-15.0 % RDW-CV High 21.4 LAB PLTCT 150-400 k/uL Platelet Low Count 83 Result Comment: Result checked and verified No clot detected. LAB MPV 9.0-12.7 fL MPV <<DO NOT REPORT>> LAB ANEUT % Neut% 82.8 LAB AANEUT 1.45-7.50 k/uL Abs Neut 1.55 LAB ALYMP % Lymph% 3.9 LAB AALYMP 1.00-4.00 k/uL Abs Lymph 0.07 Low LAB AMONO % [place]% 4.3 LAB AAMONO <0.87 k/uL Abs [place] 0.08 LAB AEOS % Eosin% 5.6 LAB AAEOS <0.46 k/uL Abs Eosin 0.10 LAB ABASO % Baso% 3.4 LAB AABASO <0.11 k/uL Abs Baso 0.06 LAB NRBC 0 /100 WBC NRBCs 0 LAB ANIIMI Anisocytosis Present LAB OVAIMI Ovalocytes Few LAB POLIMI Polychromasia Slight LAB RCFIMI RBC Fragments Few LAB TEAIMI Tear Drop Cells Few LAB PLTEST Platelet Estimate Platelet estimate decreased LAB DTYP DTYPE Manual Diff Performed By: #### PT, CBCDIF #### [facility] [address] [id number] Observed: 08/30/2017 Status: F Source: [place] BLOOD CULTURE 4:57 PM [facility] REPOSITORY Sp. Request/Comment: - TAKEN FROM [place] Culture Result - Enterococcus faecalis Cephalosporins, clindamycin, and TMP-SMX are not effective for the treatment of enterococcal infections. --> ABNORMAL ALERT Refer to specimen collected on --&gt ; ABNORMAL ALERT 08/30/17 AT 1654 ([id number]) --> ABNORMAL ALERT Staphylococcus epidermidis --> ABNORMAL ALERT (NOTE) Positive result called to and read back by:KRISTIN G81 08/31/17 0543 ANGEL ORGANISM: Staphylococcus epidermidis METHOD: Minimum inhibitory concentration(Vitek) Antibiotic Interp RADHA Status Erythromycin RESISTANT >=8 F Clindamycin RESISTANT >=4 F Tetracycline RESISTANT >=16 F Vancomycin SUSCEPTIBLE 2 F Oxacillin RESISTANT >=4 F Oxacillin resistant staphylococci are resistant to all beta lactam antibiotics (except new cephalosporins with anti MRSA activity). Trimeth sulfameth RESISTANT >=320 F Gentamicin SUSCEPTIBLE <=0.5 F Rifampin SUSCEPTIBLE <=0.5 F Rifampin should not be used alone for antimicrobial therapy. Levofloxacin RESISTANT >=8 F Doxycycline SUSCEPTIBLE 2 F Performed By: #### BLCUL #### [facility] [address] [place] [id number] Observed: 08/30/2017 Status: F Source: [place] BLOOD CULTURE 4:54 PM [facility] REPOSITORY Sp. Request/Comment: - FROM LEFT SIDED JOHNNY CATHETER Additional Testing - Enterococcus faecalis detected by microarray. 99% of isolates are susceptible to ampicillin. Negative for Staphylococcus spp. and Streptococcus spp. by microarray. Culture Result - Enterococcus faecalis Cephalosporins, clindamycin, and TMP-SMX are not effective for the treatment of enterococcal infections. --> ABNORMAL ALERT Beta lactamase Negative --> ABNOR MAL ALERT (NOTE) Positive result called to and read back by:KRISTIN G81 08/31/17 0543 ANGEL ORGANISM: Enterococcus faecalis METHOD: Minimum inhibitory concentration(Vitek) Antibiotic Interp RADHA Status Ampicillin SUSCEPTIBLE <=2 F Vancomycin SUSCEPTIBLE 1 F Streptomycin RESISTANT F Gentamicin 500 RESISTANT F The high level aminoglycoside (gentamicin or streptomycin) screening test predicts synergistic activity of the aminoglycoside with a cell wall active agent (eg, ampicillin, penicillin or vancomycin) that is also susceptible. Performed By: #### BLCUL #### [facility] [address], [place] [address] IR CENTRAL LINE Observed: 08/30/2017 Status: F Source: [place] REMOVAL 2:26 PM [facility] REPOSITORY * * *Final Report* * * DATE OF EXAM: Aug 30 2017 2:26PM [facility] 0746 - IR CENTRAL LINE REMOVAL / PROCEDURE REASON: Bacteremia * * * * Physician Interpretation * * * * PROCEDURE: REMOVAL OF TUNNELED CENTRAL VENOUS CATHETER HISTORY: .27 year old female with history significant for antiphospholipid syndrome, PE and?DVT 09/2013 (s/p b/l iliac v. stents and Endoglix AFX endograft at the inferior vena caval bifurcation) on warfarin,?extensive thrombectomy at outside hospital for right lower extremity. Has Right sided Samantha catheter x 2 years for Iv access, Left sided Johnny catheter x 4 years for bi monthly PLEX, presenting with bacteremia. Request made for samantha catheter removal... CONSENT: Risks, benefits, treatment options, potential complications and personnel to be involved were discussed (including the risks of radiation exposure, contrast and anesthesia administration, and any equipment needed for the procedure to ensure best possible outcome) with the patient and all questions were answered and consent was obtained prior to procedure. MEDICATION RECONCILIATION: The patient's medications and allergies were reviewed in the electronic medical record and reconciled to the proposed procedure/treatment. DAXA-PROCEDURE DISCUSSION: The appropriate elements of the pre-procedure discussion, safety check list and sign-out were performed. TIME OUT: A time out was performed immediately prior to procedure start, correctly identifying the name, date of , procedure, anatomy (including marking of site and side if applicable), patient position, procedure consent form, relevant diagnostic and radiology test results, antibiotic administration if applicable, safety precautions, and procedure-specific equipment needs. Start of procedure: 1325... End of procedure: 1335 Patient position: Supine Local anesthesia: 2 % lidocaine TECHNIQUE: The patient's chest and neck were prepped and draped using all elements of maximal sterile barrier technique (cap, mask, sterile gown, sterile gloves, a large sterile sheet, hand hygiene and cutaneous antisepsis). After local anesthesia, the suture holding the catheter was severed and catheter was removed with gentle traction after blunt and sharp dissection. Hemostasis was obtained by direct manual compression. Sterile dressings were applied. The patient tolerated the procedure well. There were no significant complications during the procedure. CONCLUSION: The patient was comfortable and was transferred to the patient's previous bed in stable condition. Estimated Blood Loss: Minimal Number and Type of Removed Specimens: 0: ATTENDING RADIOLOGIST: n/a PROFESSOR OF CHEMICAL ENGINEERING: None The procedure was performed by the: Machelle Joshi PA-C IMPRESSION: SUCCESSFUL REMOVAL OF TUNNELED CENTRAL VENOUS CATHETER. Practice Support Specialist: MURTAZA Transcribe Date/Time: Aug 30 2017 4:50P Dictated by : MACHELLE JOSHI PA-C This examination was interpreted and the report reviewed and electronically signed by: MACHELLE JOSHI PA-C on Aug 30 2017 4:53PM EST NURSING PROG Observed: 08/30/2017 Status: COMPLETED Source: [place] 2:18 PM [facility] REPOSITORY HNO ID: [id number] Author: Lourdes SanchezRn) JEFF Stallworth Service: (none) Author Type: Registered Nurse Type: Nursing Progress Note Filed: 08/30/2017 6:24 PM Note Text: Nursing Progress Note Patient Name: Paloma Cannon Patient Location: [place] [address] Daily Note: A blood culture ordered for pt, consulted TAMI Palmer, advised to call Hemoc assigned to pt- per in patient notes, no hemoc assigned. 1100 hrs - pt off floor to IR. Dr Liu paged and notified that blood culture not done yet, needs an order for what to lock catheter. 1404 hrs - pt back in the room, no bleeding noted in post SAMANTHA site. 700 hrs blood culture from jesus alberto cath collected by apharesis nurse sent This note was completed by: Lourdes Stallworth RN BRIEF OP NOT Observed: 08/30/2017 Status: COMPLETED Source: [place] 1:48 PM [facility] REPOSITORY HNO ID: [id number] Author: Machelle Joshi Service: Radiology Author Type: Physician Satellite Tv Technician Installer Type: Brief Op Note Filed: 08/30/2017 1:54 PM Note Text: BRIEF OP NOTE LOG ID: [id number] Surgery/Procedure Date: 08/30/2017 Incision/Procedure Start Time: 1325 Incision Close/Procedure End Time: 1335 Surgeon(s)/Proceduralist(s) and Satellite Tv Technician Installer(s): Machelle Joshi PA-C Procedure(s): Removal of samantha catheter Anesthesia: Local Findings: Removal of samantha catheter intact Estimated Blood Loss: <5 mls Specimens: None Complications: None Pre-Op/Pre-Procedure Diagnosis: 27 year old female with history significant for antiphospholipid syndrome, PE AND?DVT 09/2013 (s/p b/l iliac v. stents and Endoglix AFX endograft at the inferior vena caval bifurcation) on warfarin,?extensive thrombectomy at outside hospital for right lower extremity. Has Right sided Samantha catheter x 2 years for Iv access, Left sided [place] catheter x 4 years for bi monthly PLEX, presenting with bacteremia. Request made for samantha catheter removal. Post-Op/Post-Procedure Diagnosis: Samantha catheter removed SIGNATURE: Machelle Joshi PA-C PATIENT NAME: Paloma Cannon DATE: August 30, 2017 TIME: 1:48 PM PAGER/CONTACT #: [phone] PT ED Observed: 08/30/2017 Status: COMPLETED Source: [place] 1:46 PM [facility] REPOSITORY HNO ID: [id number] Author: Daysi Gruloln (Pharmacist) Service: Pharmacy Author Type: Pharmacist Type: Patient Education Filed: 08/30/2017 1:48 PM Note Text: PHARMACY WARFARIN EDUCATION Patient Name: Paloma Cannon Account #: Data Unavailable Admission Date: 08/25/2017 5:15 PM Date of Contact: August 30, 2017 Time of Contact: 1:46 PM Patient new to warfarin? No: Previous (home) dosage: warfarin 7.5 mg Sat and Sun; 5 mg Mon,Tu, Wed, Thurs, Fri Outpatient follow-up plan: Follow-up with Physician: name: Dr. Guillaume Fuller' office ([facility] physician) with his GENERATION MECHANIC HELPER Magdalena Indication for warfarin: deep vein thrombosis (DVT) Target INR range: 2.0 - 3.0 (Target 2.5) Patient received full warfarin education (Please see previously documented note on 08/27/17). DAYSI GRULLON, PHARMACIST [id number] HISTORY PHYSICAL Observed: 08/30/2017 Status: COMPLETED Source: [place] 1:17 PM [facility] REPOSITORY HNO ID: [id number] Author: Machelle Joshi Service: Radiology Author Type: Physician Satellite Tv Technician Installer Type: HANDP Filed: 08/30/2017 1:18 PM Note Text: UPDATED HISTORY AND PHYSICAL EXAMINATION SERVICE DATE: 08/30/2017 SERVICE TIME: 1:17 PM PHYSICAL EXAM MUST BE COMPLETED ON ADMISSION The History and Physical (completed in the past 30 days) has been reviewed and the patient has been examined. The contents accurately reflect the patient's condition with the following additions or revisions since the HANDP was completed. Examination indicates no changes. This HANDP can be found in the Electronic Medical Record dated 08/25/2017. SIGNATURE: Machelle Joshi PA-C PATIENT NAME: Paloma Cannon DATE: August 30, 2017 TIME: 1:17 PM PAGER: [phone] CONSULT PROG Observed: 08/30/2017 Status: COMPLETED Source: [place] 12:33 PM [facility] REPOSITORY HNO ID: [id number] Author: Dominique Wright Service: Infectious Disease Author Type: Physician Type: Consult Progress Note Filed: 08/30/2017 12:37 PM Note Text: INFECTIOUS DISEASE CONSULT SERVICE PROGRESS NOTE Date: August 30, 2017 Patient Name: Paloma Cannon Interval History: Doing well today. No new issues. Diarrhea improving. MEDICATIONS Current Facility-Administered Medications: DAPTOmycin 750 mg in NaCl 0.9% 50 mL (CUBICIN) 750 mg INTRAVENOUS q 24 HR diphenhydrAMINE 25 mg in D5W 50 mL 25 mg INTRAVENOUS PRN prochlorperazine 5 mg injection (COMPAZINE) 5 mg INTRAVENOUS q 4 H PRN metroNIDAZOLE 500 mg PREMIX piggyback (FLAGYL) 500 mg INTRAVENOUS q 8 H sulfamethoxazole-trimethoprim 800-160 mg 1 tablet (BACTRIM DS,SEPTRA DS) 1 tablet ORAL MO-WE- gabapentin 300 mg cap(s) (NEURONTIN) 300 mg ORAL q 8 H predniSONE 10 mg tab(s) (DELTASONE) 10 mg ORAL DAILY 0.9% NaCl 10 mL 10 mL INTRAVENOUS q 12 H 0.9% NaCl 20 mL 20 mL INTRAVENOUS PRN warfarin order for discharge OTHER PRN Current antibiotics: daptomycin 8 mg/kg daily Flagyl Examination: BP 125/87 Pulse 93 Temp 36.3 ?C (97.4 ?F) (Oral) Resp 16 Ht 160 cm (5' 3) Wt 94.3 kg (207 lb 14.3 oz) SpO2 99% BMI 36.83 kg/m2 Alert, oriented, appears well HEENT no conjunctival lesions, no thrush NECK supple, no LAD CHEST clear, right samantha catheter entry site benign, left pheresis catheter benign appearing HEART regular, no mRG ABDO soft, nontender, mild distension EXTREM bilateral LE symmetric erythema of lower legs to ankle, blanches to pressure, nontender ?? Laboratory data: WBC 1.34, HCT 24, PLTs 89, Cr 0.93, INR 2.3 ?? Microbiology data: 08/28: blood x 2 NGTD 08/26: blood catheter MRSE, blood peripheral NGTD 08/25 blood x 2 E faecalis and now MRSE 2 of 2 sets from and periphery 08/25: stool C diff ?? Imaging data: CXR reviewed, no infiltrates ?? ASSESSMENT:? 1. Antiphospholipid syndrome?(on plasmapheresis- PLEX every other week, prednisone?5/10mg) 2. 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 stents and Endoglix AFX endograft at the inferior vena caval bifurcation) on warfarin,?extensive thrombectomy at outside hospital for right lower extremity and IVC thrombus. 3. DAH x 5 4. HFpEF due to Rituximab. 5.?MRSE BSI attributed to tunneled catheter treated with 6 weeks of iv daptomycin in 02/02. ?? Admitted with fever and diarrhea. Found to have recurrence of C diff colitis and E faecalis+ MRSE BSI. Suspected primary line infection (grew from line in 12 hours compared to 20 hours from periphery). Presence of MRSE argues against GI source. UA not suggestive of urinary source. ?? RECOMMENDATIONS:? 1. Can lower dose of daptomycin to 6 mg/kg daily given rapid clearance and type of organisms growing. 2. Continue flagyl 500 mg TID for C diff 3. Obtain cultures from the plex catheter. Hopefully will not need removal 4. Plan to arrange for samantha/partida removal. New line can be inserted when blood cultures negative x 48 hours, no fever. ? Signature: Dominique Wright MD August 30, 2017 12:35 p.m. THERAPY NT Observed: 08/30/2017 Status: COMPLETED Source: [place] 12:22 PM [facility] [place] REPOSITORY HNO ID: [id number] Author: Alondra (Pt) Lokesh Service: Physical Therapy Author Type: Physical Therapist Type: Therapy (PT/OT/Speech/Resp) Filed: 08/30/2017 12:26 PM Note Text: Physical Therapy Evaluation SERVICE DATE: 08/30/2017 SERVICE TIME: 1151 to 1215 ROOM: [place] [address] Recommended Discharge Disposition: Home Recommended Discharge Equipment: Patient to Obtain PT Recommendations to Nursing: (Ambulate ad tom with use of IV pole PRN) PT 6 Clicks Score: 24 Precautions/Activity Restrictions: Lines/Tubes/Drains ASSESSMENT : Tolerated Full Session Pt demonstrates IND in all functional mobility with good safety awareness and dynamic balance. Pt will have adequate assist at home if needed and is agreeable to continue to ambulate and be compliant with HEP while in house. Pt also agreeable to PT/dc plan. PT discontinuing services at this time. Please re-consult if new needs arise. PLAN: Treatment Frequency (times per week): Discontinue Therapy Services Reasons Therapy Services Discontinued: Independent in all functional mobility;No skilled needs Treatment Interventions: Education;Self Care / Home Management;Energy Conservation Training;Joint Mobility;Strengthening;Balance Training;Functional Mobility Training;Neuromuscular Re-education Plan of Care developed with: Patient () TREATMENT INTERVENTIONS: Therapy Diagnosis: No Skilled Need Interventions Provided: Evaluation;Gait Training (72162) $ Evaluation-Low (49978) Billed Units: 1 unit Gait Training (72057) Treatment Minutes: 8 1 unit Skilled Intervention(s): Instruction in sit to stand technique with proper hand placement and body positioning at edge of bed/chair, Instruction in stand to sit technique with LE's touching chair/bed and reaching back for surface, Instruction in sequencing, gait pattern, Instruction in correction of gait deviations, Instruction in use of equipment, cues for sequence and pattern, posture, safety, pacing. Education in activity tolerance, use of pursed lip breathing and means of self monitoring tolerance to activity and exercise. Educated in safety precautions and modifications during ambulation. Education of PT role/responsibility, d/c planning, poc, benefits of mobility, importance of OOB activity with nursing assist, use of call light, safety, activity pacing, precautions. ? Total Timed Code Treatment Minutes: 8 Total Treatment Time (minutes): 24 FUNCTIONAL G CODE: PT 6 Clicks Score: 24 (08/30/17 1151) Mobility: Walking and Moving Around Current Status (G8978): (08/30/17 1151) Mobility: Walking and Moving Around Goal Status (G8979): (08/30/17 1151) Mobility: Walking and Moving Around Discharge Status (G8980): (08/30/17 1151) Based on clinical assessment and the score on the 6 Clicks Functional Assessment Tool, the G code and corresponding severity modifiers are documented above. SUBJECTIVE: Current Hospital Course: Chart reviewed; 27 y/o female who presents with new onset fevers. 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 Let me show you. 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 Entry To Home: No Stairs Number Of Stairs To Bed/Bath: 0 Tub/Shower Type: walk in Equipment Owned: Commode-Raised;Grab Bars-Shower;Grab Bars-Toilet;Hand Held Shower;Shower Chair;Home Oxygen Prior Functional Level: Within Functional Limits OBJECTIVE: CURRENT FUNCTIONAL STATUS: Current Functional Mobility Assist Level Additional Information Rolling Independent Supine to Sit Independent Sit to Supine Independent Scooting Independent Sit to Stand Independent Stand to Sit Independent Gait Independent Gait Device: None Gait Distance (feet): 30 (limited by lines) Balance: Static Sitting;Dynamic Sitting;Static Standing;Dynamic Standing Static Sitting Balance: Independent Dynamic Sitting Balance: Independent Static Standing Balance: Independent Dynamic Standing Balance: Independent Pt supine in bed at end of session with all needs within reach. Bed in lowest, locked position with 2 bed rails elevated. Please see discipline specific clinical documentation flowsheet for complete details for this therapy evaluation/treatment. SIGNATURE: Alondra Campa PT PATIENT NAME: Paloma Cannon DATE: August 30, 2017 TIME: 12:22 PM PAGER/CONTACT #: [phone] PROGRESS Observed: 08/30/2017 Status: COMPLETED Source: [place] 12:16 PM [facility] [place] REPOSITORY HNO ID: [id number] Author: Gael Simmons Service: Hospital Medicine Author Type: Physician Type: Progress Notes Filed: 08/30/2017 2:21 PM Note Text: [facility] - Vipul Marie Progress Note PATIENT NAME: Paloma Cannon Brief Plan for Today - Continue daptomycin and flagyl - Remove right sided Samantha catheter - draw BCx from left sided Johnny catheter - Monitor renal function, blood cultures Interval History No acute events overnight, afebrile 48 hours, HDS Diarrhea is improving, formed BM, no cramping Will remove Samantha catheter as she grew MRSE in 3/4 cultures; she is growing MRSE from Samantha culture. If she grows from Johnny catheter, it may need to be removed later as well. Medications Current Facility-Administered Medications: DAPTOmycin 750 mg in NaCl 0.9% 50 mL (CUBICIN) 750 mg INTRAVENOUS q 24 HR diphenhydrAMINE 25 mg in D5W 50 mL 25 mg INTRAVENOUS PRN prochlorperazine 5 mg injection (COMPAZINE) 5 mg INTRAVENOUS q 4 H PRN metroNIDAZOLE 500 mg PREMIX piggyback (FLAGYL) 500 mg INTRAVENOUS q 8 H sulfamethoxazole-trimethoprim 800-160 mg 1 tablet (BACTRIM DS,SEPTRA DS) 1 tablet ORAL MO-WE- gabapentin 300 mg cap(s) (NEURONTIN) 300 mg ORAL q 8 H predniSONE 10 mg tab(s) (DELTASONE) 10 mg ORAL DAILY 0.9% NaCl 10 mL 10 mL INTRAVENOUS q 12 H 0.9% NaCl 20 mL 20 mL INTRAVENOUS PRN warfarin order for discharge OTHER PRN Physical Exam BP 122/68 Pulse 86 Temp 36.6 ?C (97.9 ?F) (Temporal Artery) Resp 16 Ht 160 cm (5' 3) Wt 94.3 kg (207 lb 14.3 oz) SpO2 98% BMI 36.83 kg/m2 General: No acute distress. AANDOx3. HEENT: PERRLA. EOMi. Neck: No swellings. Has Right sided Samantha catheter x 2 years for Iv access, Left sided Johnny catheter x 4 years for bi monthly PLEX CV: Normal rate and rhythm. Resp: CTA b/l. Maintained sats on baseline NC 2L Abdomen: Soft, nontender, bowel sounds presents, decreased distension Extremities: No pedal edema b/l. Neuro: CN II-XII Grossly Intact. Fluid Balance Intake/Output Summary (Last 24 hours) at 08/30/17 1216 Last data filed at 08/30/17 0533 Gross per 24 hour Intake 910 ml Output 750 ml Net 160 ml Labs CBC, Coags, BMP, Mg, Phos Recent Labs 08/30/17 0323 08/29/17 0616 08/29/17 0407 08/28/17 0428 WBC 1.34* -- 1.21* 2.58* HB 7.4* -- 7.4* 7.9* HCT 24.1* -- 23.3* 25.2* PLT 89* -- 81* 82* INR 2.3* -- 2.8* 3.7* NA 138 139 -- 137 K 3.8 3.7 -- 3.6* CHLOR 106* 106* -- 104 CO2 22 22 -- 20* BUN 8 10 -- 13 CREAT 0.93 1.04* -- 1.18* GLUC 70* 69* -- 78 CA 7.9* 8.0* -- 7.8* MG 2.0 -- -- -- P 2.5* -- -- -- Liver Function, Amylase, AND Lipase Recent Labs 08/30/1732208/29/17 0616 08/28/17 0428 TPROT 5.1* 5.3* 5.1* ALB 2.9* 3.1* 3.1* ALT <5* 8 6* AST 10* 11* 15 ALKPHOS 42 40 42 TBILI 0.5 0.4 0.5 Assessment and Plan The patient is a 27 year old female with a Gram-positive bacteremia in the setting of C difficile Colitis, pancytopenia, and CAPRICE. ? 1.) Sepsis d/t E fecalis Presented with fever + nausea/vomiting, 2/2 blood cultures from 08/25 showed Gram-positive cocci in pairs + chains, currently afebrile and hemodynamically stable BCX from 08/28 NG x 24 hrs Plan: - Quiñonez sensitive E fecalis; - Needs coverage for MRSE so switched from Ampicillin to daptomycin 2.) MRSE bacteremia 3 line cultures positive for MRSE (2/2 x2/16 and 1/2 x2/17) Needs coverage for MRSE Prior adverse reaction to vancomycin - CAPRICE Culture from Samantha and Johnny catheter Plan: - Switch to Daptomycin - remove Samantha catheter - hold off removing Johnny catheter until cultures reported ? 3.) C difficile Colitis Multiple bouts of diarrhea on presentation, C difficile assay positive Plan: - metronidazole - contact precautions ? 4.) Pancytopenia Unclear etiology, possibly related to medications (cyclophosphamide or bactrim she's been taking for PJP prophylaxis), reticulocyte count 1.5% (inadequate bone marrow compensation) CMV negative Plan: - Hold cyclophosohamide - fungal battery 4.) CAPRICE Elevated Cr (baseline about 1), UA was clean with no signs of infection, FENa < 1%, likely pre-renal from dehydration 2/2 diarrhea with hypotension from bacteremia Plan: - Returning to baseline - strict IANDOs - avoid nephrotoxins - avoid NSAIDS + iv contrast - iv fluids as necessary ? Chronic Problems: 1. Anti-phospholipid Syndrome 2. Hypertension 3. HFpEF - f/u ECHO 4. Heparin-induced Thrombocytopenia 5. 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 GERD ? Other: Diet: Regular GI AND DVT Prophylaxis: warfarin PT/OT Disposition Recs: N/A Code Status: Full code ? Case to be discussed with staff, Dr Simmons SIGNATURE: [place] [id number] DATE of SERVICE: August 30, 2017 TIME of SERVICE: 12:[address] FRED STONE, SR. HOSPITAL STAFF PHYSICIAN NOTE OF PERSONAL INVOLVEMENT IN CARE I have reviewed the documentation obtained and documented by the team healthcare provider (fellow, resident, nurse practitioner or physician child nutrition assistant) and I personally participated in the fernandes components. I have discussed the case and management of the patient's care and the note has been revised / addended to reflect my direct input. Samantha now out. Diarrhea resolving Need c/s from Basil Appreciate ID help Hemoptysis has resolved as well Gael Simmons MD [facility] Medicine Staff PAGER: [phone] DATE of Service: 08/30/2017 TIME of Service: 2:20 PM NUTRITION Observed: 08/30/2017 Status: COMPLETED Source: [place] 10:34 AM [facility] REPOSITORY HNO ID: [id number] Author: Elsa Germain Service: Nutrition Therapy Author Type: Registered Dietitian Type: Nutrition Filed: 08/30/2017 6:05 PM Note Text: NUTRITION THERAPY PROGRESS NOTE SERVICE DATE: 08/30/2017 SERVICE TIME: 1535 RECOMMENDED DIAGNOSIS: SEVERE PROTEIN-CALORIE MALNUTRITION per Registered Dietitian on 08/27 NUTRITION CARE PLAN Intervention: Regular diet Monitor and Evaluation: Goal: Meet >75% of estimated needs Monitor fluid/electrolyte balance Monitor labs, I/Os, vital signs, weight Discharge Nutrition Recommendations: Diet: regular Interval History: ID continues to follow for BSI and CDI and abx. Samantha to be removed. Diarrhea improving. MD note from yesterday indicates some concern for DAH given blood-tinged sputum. Pt reports she has no appetite which she blames on her pre- adm chemo. Also, she reports taste changes which also impact her willingness/desire to eat. Not drinking the G2 due to the taste. Present Diet Order: Regular G2 x 2 Nutritional Intake: Eating better - now 75-100% 2 x day for 2 days Admission Weight: 92.5 kg (204 lb) Current Weight: 94.3 kg (207 lb 14.3 oz) Body mass index is 36.83 kg/(m2). MNT Billing Type: Re-assess/15 min 2 units SIGNATURE: Elsa Germain, MS RDN-AP [facility] PATIENT NAME: Paloma Cannon DATE: August 30, 2017 TIME: 10:34 AM PAGER: [phone] PROTIME Collected: 08/30/2017 Status: F Source: [place] 3:23 AM [facility] REPOSITORY TYPE CODE TESTS RESULT OUT OF RANGE REFERENCE UNITS LAB PSEC 9.7-13.0 sec High PT Sec 22.4 LAB INR 0.9-1.3 High PT INR 2.3 Result Comment: Vitamin K Antagonist (VKA) Therapeutic Range: INR 2 to 3 (Target INR of 2.5) Note: For patients treated with VKA drugs, such as warfarin, the [place] [employer] 2012 Guideline recommends a therapeutic INR range of 2 to 3 (target INR of 2.5). This recommendation includes high-risk patients with antiphospholipid syndrome with previous arterial or venous thromboembolism, current-generation mechanical or bioprosthetic aortic heart valve replacement. Note: Patients with mechanical aortic valve replacement and additional risk factors for thromboembolic events (atrial fibrillation, previous thromboembolism, LV dysfunction, hypercoagulable conditions) or an older generation mechanical AVR (i.e., ball in-Cage) or any mechanical MVR should have a INR therapeutic range of 2.5 to 3.5 (target INR of 3). Michael GH, et al. Chest 2012, 141:7S-47S Diogenes RA, et al. [facility] 2017, 70: 252-289 Performed By: #### PT, CK, CMP, MG1, PHOS, CBCDIF #### [facility] [address], [place] [address] CK Collected: 08/30/2017 Status: F Source: [facility] 3:23 AM [facility]IN [place] REPOSITORY TYPE CODE TESTS RESULT OUT OF RANGE REFERENCE UNITS LAB CK 42-196 U/L Low CK <7 Result Comment: Result rechecked. Performed By: #### PT, CK, CMP, MG1, PHOS, CBCDIF #### [facility] [address], [place] [address] COMP METABOLIC PANEL Collected: 08/30/2017 Status: F Source: [place] 3:23 AM [facility] REPOSITORY TYPE CODE TESTS RESULT OUT OF REFERENCE UNITS RANGE LAB TP 6.3-8.0 g/dL Low Protein, Total 5.1 LAB ALB 3.9-4.9 g/dL Low Albumin 2.9 LAB CA 8.5-10.2 mg/dL Low Calcium, Total 7.9 LAB TBIL 0.2-1.3 mg/dL Bilirubin, Total 0.5 LAB ALKP 32-117 U/L Alkaline Phosphatase 42 LAB AST 13-35 U/L Low AST 10 LAB GLU 74-99 mg/dL Low Glucose 70 Result Comment: The [place] [employer] (ADA) provides guidance for cutoff values for fasting glucose and random glucose. The ADA defines fasting as no caloric intake for at least 8 hours. Fas ting plasma glucose results between 100 to 125 mg/dL indicate increased risk for diabetes (prediabetes). Fasting plasma glucose results greater than or equal to 126 mg/dL meet the criteria for diagnosis of diabetes. In the absence of unequivocal hyperglycemia, results should be confirmed by repeat testing. In a patient with classic symptoms of hyperglycemia or hyperglycemic crisis, random plasma glucose results greater than or equal to 200 mg/dL meet the criteria for diagnosis of diabetes. Reference: Standards of Medical Care in Diabetes 2016, [place] [employer]. Diabetes Care. 2016.39(Suppl 1). LAB BUN 7-21 mg/dL BUN 8 LAB CRET 0.58-0.96 mg/dL Creatinine 0.93 LAB NA 136-144 mmol/L Sodium 138 LAB K 3.7-5.1 mmol/L Potassium 3.8 LAB CL 97-105 mmol/L Chloride High 106 LAB CO2 22-30 mmol/L CO2 22 LAB AGAP 9-18 mmol/L Anion Gap 10 LAB ALT 7-38 U/L Low ALT <5 Result Comment: Result rechecked. LAB GFRAA eGFR- Amer. >60 LAB GFRNAA . eGFR-All Other Races >60 Result Comment: eGFR (Estimated GFR) Units of measure: mL/min/1.73 meters squared eGFR is derived from the reexpressed MDRD Study equation using the following parameters: serum creatinine, age, gender and race. The creatinine assay has been calibrated to be traceable to IDMS. An eGFR <60 mL/min/1.73m2 for >3 months is consistent with chronic kidney disease. Refer to KDOQI guidelines for clinical interpretation. In patients with unstable renal function, e.g. those with acute kidney injury, the eGFR may not accurately reflect actual GFR. Performed By: #### PT, CK, CMP, MG1, PHOS, CBCDIF #### [facility] [address] [place] [address] MAGNESIUM Collected: 08/30/2017 Status: F Source: [place] 3:23 AM [facility] REPOSITORY TYPE CODE TESTS RESULT OUT OF REFERENCE UNITS RANGE LAB MG 1.7-2.3 mg/dL Magnesium 2.0 Performed By: #### PT, CK, CMP, MG1, PHOS, CBCDIF #### [facility] [address] [place] [address] PHOSPHORUS Collected: 08/30/2017 Status: F Source: [place] 3:23 AM [facility] REPOSITORY TYPE CODE TESTS RESULT OUT OF REFERENCE UNITS RANGE LAB PHOS 2.7-4.8 mg/dL Low Phosphorus 2.5 Performed By: #### PT, CK, CMP, MG1, PHOS, CBCDIF #### [facility] [address] [place] [address] CBC AND DIFFERENTIAL Collected: 08/30/2017 Status: F Source: [place] 3:23 AM [facility] REPOSITORY TYPE CODE TESTS RESULT OUT OF RANGE REFERENCE UNITS LAB WBC 3.70-11.00 k/uL Low WBC 1.34 Result Comment: Result checked and verified No clot detected. LAB RBC 3.90-5.20 m/uL RBC Low 2.85 LAB HGB 11.5-15.5 g/dL Hemoglobin Low 7.4 LAB HCT 36.0-46.0 % Hematocrit Low 24.1 LAB MCV 80.0-100.0 fL MCV 84.6 LAB MCH 26.0-34.0 pG MCH 26.0 LAB MCHC 30.5-36.0 g/dL MCHC 30.7 LAB RDWCV 11.5-15.0 % RDW-CV High 21.1 LAB PLTCT 150-400 k/uL Platelet Count 89 Low LAB MPV 9.0-12.7 fL MPV 10.9 LAB ANEUT % Neut% 76.0 LAB AANEUT 1.45-7.50 k/uL Abs Neut Low 1.02 LAB ALYMP % Lymph% 8.9 LAB AALYMP 1.00-4.00 k/uL Abs Lymph Low 0.12 LAB AMONO % [place]% 5.8 LAB AAMONO <0.87 k/uL Abs [place] 0.08 LAB AEOS % Eosin% 6.2 LAB AAEOS <0.46 k/uL Abs Eosin 0.08 LAB ABASO % Baso% 3.1 LAB AABASO <0.11 k/uL Abs Baso 0.04 LAB ACAIMI Acanthocytes Few LAB ANIIMI Anisocytosis Present LAB OVAIMI Ovalocytes Few LAB POLIMI Polychromasia Slight LAB RCFIMI RBC Fragments Moderate LAB TEAIMI Tear Drop Cells Few LAB PLTEST Platelet Estimate Platelet estimate decreased LAB DTYP DTYPE Manual Diff Performed By: #### PT, CK, CMP, MG1, PHOS, CBCDIF #### [facility] [address] [place] [place] [address] CNDS Observed: 08/29/2017 Status: COMPLETED Source: [place] 4:25 PM [facility] REPOSITORY HNO ID: [id number] Author: Ignacio Novak Service: General Internal Medicine Author Type: Physician Type: Discharge Summaries Filed: 09/07/2017 1:34 PM Note Text: DISCHARGE SUMMARY Patient Name: Paloma Cannon Admission Date: 08/25/2017 Discharge Date: 09/06/2017 Attending Physician: Gael Simmons MD Reason for Hospitalization: 1) MRSE and E Faecalis central line associated blood stream infection 2) Clostridium difficile colitis Final Diagnoses: Active Problems: Sepsis due to Enterococcus (HCC) CAPRICE (acute kidney injury) (HCC) Severe protein-calorie malnutrition (HCC) (HFpEF) heart failure with preserved ejection fraction (HCC) CKD (chronic kidney disease) stage 3, GFR 30-59 ml/min APS (antiphospholipid syndrome) (HCC) HTN (hypertension) History of HIT (heparin-induced thrombocytopenia) (HCC) Recurrent deep vein thrombosis (DVT) (HCC) Bacteremia due to Staphylococcus epidermidis Resolved Problems: Edema Nausea AND vomiting Fever of undetermined origin Red man syndrome Hospital Course: The patient is a 27 year old female with a history of: - Anti-phospholipid Syndrome (catastrophic APAS c/b PE/DVT requiring extensive percutaneous thrombectomy of her IVC + lower extremity veins with placement of bilateral iliac venous stents and an IVC endograft, found to be positive for lupus anticoagulant, [id number], and anti-cardiolipin antibodies for which she gets plasmapheresis q2 weeks and is on daily prednisone) - Hypertension - Heparin-induced Thrombocytopenia - Previous hx of Diffuse Alveolar Hemorrhage - on cyclophosphamide - GERD The patient initially presented with a fever along with nausea/vomiting and diarrhea. She was found to be positive for C difficile and was started on metronidazole x 14 days. She was initially treated empirically with vancomycin + zosyn until blood cultures came back positive for E faecalis (switched to ampicillin) followed by MRSE (at which point antibiotic therapy was switched to daptomycin). Her samantha and plex catheter were removed and replaced once cultures were > 72 hrs negative. In addition, she was found to be pancytopenic which was new for her to some extent (she had been noted to have had low hemoglobin + platelet levels previously but this time her WBC count was also noted to have been depressed). Hematology-Oncology was consulted for further evaluation of the pancytopenia and recommended to stop the patient's cyclophosphamide (which she was taking for her previous history of Diffuse Alveolar Hemorrhage). She received PLEX therapy on 2/28/18 prior to discharge that day. 1) MRSE + E faecalis BSI attributed to tunneled catheter treated with 6 weeks of iv daptomycin in 02/02. Microbiology data: 09/01: blood x 2 NGTD 08/30: blood Jesus Alberto cath x 2 GPC clusters and E faecalis 08/28: blood x 2 NGTD 08/26: blood catheter MRSE, blood peripheral NGTD 08/25 blood x 2 E faecalis and now MRSE 2 of 2 sets from and periphery 08/25: stool C diff ? ? Prior adverse reaction to vancomycin - CAPRICE Culture from Samantha and Johnny catheter - Both catheters removed on 08/30 and 08/31 respectively After > 72 hrs of negative cultures- Has Left side samantha and plex catheter placed by IR on 09/05/2017. ? Plan: 1. Continue daptomycin to 6 mg/kg daily till 09/10/2017 ?? 2) C difficile Colitis Multiple bouts of diarrhea on presentation, C difficile assay positive Plan:? - Continue flagyl 500 mg TID for C diff x 14 days - last day 09/09/2017 ?? 3) Pancytopenia 2/2 to cytoxanHas fluctuating counts, low plts Plan:? - Hold cyclophosohamide .- needs repeat CBC to monitor plts particularly ? 4.) CAPRICE (resolved) Elevated Cr (baseline about 1), UA was clean with no signs of infection, FENa < 1%, likely pre-renal from dehydration 2/2 diarrhea with hypotension from bacteremia Plan:? - Returned to baseline? 5.) catastrophic APS on plasmapheresis- PLEX every other week, prednisone?5/10mg) -PE AND?DVT 09/2013 (s/p b/l iliac v. stents and Endoglix AFX endograft at the inferior vena caval bifurcation) on warfarin,?extensive thrombectomy at outside hospital for right lower extremity and IVC thrombus ? S/p plasmapheresis 09/06/2017 Discharged on fondaparinux 2.5 and coumadin 7.5 mg bridge w/ INR check on 09/08/2017. Will be followed up by [facility] med DIRECTOR OF HOTEL. 6) HFpEF Med list included: hydralazine, carvedilol, isordil, torsemide and amlodipine She was only taking hydralazine at home as needed. Echo 08/29/17: EF: 50%. Normal RV and RVSO. No valvular abnormalities. Euvolemic on exam. DC'ed all except amlodipine. Labs and Procedures Pending at Discharge: No pending results. Operations During Hospitalization: none Procedures During Hospitalization: - Removal of Double Lumen Tunneled CVC and Dialysis/Aphereiss Double Lumen on 08/30/17 and 08/31/17 repsectively Re-insertion of 09/05/2017 1) LEFT-SIDED SUPRADIAPHRAGMATIC DUAL-LUMEN TUNNELED DIALYSIS CATHETER 2) LEFT-SIDED SUPRADIAPHRAGMATIC SINGLE-LUMEN TUNNELED SAMANTHA CATHETER Consulting Teams During Hospitalization: - Infectious Disease - Hematology-Oncology - Vascular Medicine Transitions of Care Critical Issues: Lab Monitoring Follow-up: INR, BUN/CR Imaging Follow-up: none Specialist Follow-up: ID, pulmonology FERNANDES MEDICATION CHANGES: - Discontinued carvedilol, hydralazine, isordil, torsemide. Continued amlodipine - Fondaparinox to coumadin bridge Patient Condition @ Discharge: Stable Discharge Disposition: Home with Home Health Care Discharge Medications: Discharge Medication List as of 09/06/2017 1:50 PM START taking these medications DAPTOmycin 400 mg in NaCl (PF) 0.9% 8 mL (CUBICIN) Inject 8 mL intravenously q 24 HR. Med Update fondaparinux (ARIXTRA) 2.5 mg/0.5 mL syrg Inject 0.5 mL subcutaneously q 24 HR. Print RX, Disp-5 mL, R-0 metroNIDAZOLE (FLAGYL) 500 mg tablet Take 1 tablet by mouth three times daily for 3 days. Print RX, Disp-9 tablet, R-0 Dx: 1. Recurrent Clostridium difficile diarrhea oxyCODONE-acetaminophen (PERCOCET) 5-325 mg tablet Take 1 tablet by mouth every 8 hours as needed for up to 3 days. Earliest Fill Date: 09/06/17 Print RX, Disp-9 tablet, R-0 Dx: 1. Difficult intravenous access CONTINUE these medications which have CHANGED warfarin (COUMADIN) 2.5 mg tablet take by mouth as directed in the evening to keep INR between 2.0-3.0 Print RX, Disp-60 tablet, R-2, Long-term amLODIPine (NORVASC) 5 mg tablet Take 2 tablets by mouth once daily. HOLD FOR SBP <120 Print RX, Disp-30 tablet, R-3, Long-term CONTINUE these medications which have NOT CHANGED predniSONE (DELTASONE) 5 mg tablet Take by mouth daily. 20 mg - Jun; 15 mg - Jul; 10 mg - Aug; 5 mg - Sep onwards Normal, Disp-200 tablet, R-4 sulfamethoxazole-trimethoprim (BACTRIM DS) 800-160 mg per tablet Take 1 tablet by mouth every Monday,Monday,Monday. Normal, Disp-36 tablet, R-3 gabapentin (NEURONTIN) 300 mg capsule Please take gabapentin 200 mg three times daily for 3 days. If you tolerate it, increase to 300 mg three times a day for 3 days. If you tolerate it, increase to 600 mg at bedtime and 300 mg daytime for 3 days. If you tolerate it, increase to 600 mg th ree times a day for 3 days. If you tolerate it, increase to 900 mg at bedtime and 600 mg daytime for 3 days. If you tolerate it, increase to 900 mg three times a day for 3 days. Print RX, Disp-360 capsule, R-3 fluticasone (FLONASE) 50 mcg/actuation nasal spray Use 1 [place] in each nostril once daily. Historical Med pantoprazole DR (PROTONIX) 40 mg tablet Take 1 tablet by mouth DAILY (6 AM). Normal, Disp-90 tablet, R-1 cetirizine 10 mg tablet Take 1 tablet by mouth once daily. Print RX, Disp-30 tablet, R-0 senna 8.6 mg tab Take 1 tablet by mouth twice daily as needed. Print RX, Disp-60 tablet, R-0 STOP taking these medications cyclophosphamide (CYTOXAN) 50 mg capsule Comments: Reason for Stopping: carvedilol (COREG) 25 mg tablet Comments: Reason for Stopping: hydrALAZINE (APRESOLINE) 100 mg tablet Comments: Reason for Stopping: torsemide (DEMADEX) 20 mg tablet Comments: Reason for Stopping: isosorbide mononitrate ER (IMDUR) 30 mg 24 hr tablet Comments: Reason for Stopping: Miscellaneous Medical Supply misc Comments: Reason for Stopping: Future Appointments Date Time Provider Department Center 09/11/2017 10:[address] 2 MAIN QB (I-STAT) [facility] RADIO (MAIN 09/11/2017 11:55 AM Guillaume Alicea PULMMN PULM A/E/R/G 09/18/2017 12:00 PM [facility] [place] 09/19/2017 2:45 PM Dominique Wright INFDMN INFD (MAIN - 09/27/2017 12:30 PM [facility] D[facility] [place] 10/02/2017 12:30 PM [facility] [place] 10/16/2017 12:30 PM [facility] [place] 10/30/2017 12:30 PM [facility] [place] Veronica Ryan MD Internal Medicine PGY-3 Pager:v: [phone] 3:42 PM 09/06/2017 DR. [facility] STAFF PHYSICIAN NOTE OF PERSONAL INVOLVEMENT IN CARE I have reviewed the discharge summary obtained and documented by the resident and I personally participated in the fernandes components. I have discussed the case and management of the patient's care. The following comments revise or confirm relevant fernandes components of their note. CARE COORDINATION: Discharge Management: I personally spent greater than 30 minutes involved in the discharge management of this patient SIGNATURE: Ignacio Novak MD PAGER: [phone] DATE of SERVICE: September 07, 2017 TIME of SERVICE: 1:33 PM Observed: 08/29/2017 Status: F Source: [place] BLOOD CULTURE 3:36 PM [facility] REPOSITORY Culture Result - No growth 5 days Performed By: #### BLCUL #### [facility] [address] [place], [place] [address] CONSULT PROG Observed: 08/29/2017 Status: COMPLETED Source: [place] 12:16 PM [facility] REPOSITORY HNO ID: [id number] Author: Dominique Wright Service: Infectious Disease Author Type: Physician Type: Consult Progress Note Filed: 08/29/2017 12:23 PM Note Text: INFECTIOUS DISEASE CONSULT SERVICE PROGRESS NOTE Date: August 29, 2017 Patient Name: Paloma Cannon Interval History; Doing well today. No fevers. Eager to have current infection resolved for PLEX planned next week. MEDICATIONS Current Facility-Administered Medications: DAPTOmycin 750 mg in NaCl 0.9% 50 mL (CUBICIN) 750 mg INTRAVENOUS q 24 HR diphenhydrAMINE 25 mg in D5W 50 mL 25 mg INTRAVENOUS PRN prochlorperazine 5 mg injection (COMPAZINE) 5 mg INTRAVENOUS q 4 H PRN metroNIDAZOLE 500 mg PREMIX piggyback (FLAGYL) 500 mg INTRAVENOUS q 8 H sulfamethoxazole-trimethoprim 800-160 mg 1 tablet (BACTRIM DS,SEPTRA DS) 1 tablet ORAL -WE gabapentin 300 mg cap(s) (NEURONTIN) 300 mg ORAL q 8 H predniSONE 10 mg tab(s) (DELTASONE) 10 mg ORAL DAILY 0.9% NaCl 10 mL 10 mL INTRAVENOUS q 12 H 0.9% NaCl 20 mL 20 mL INTRAVENOUS PRN warfarin order for discharge OTHER PRN Current antibiotics: daptomycin flagyl Examination: BP 119/62 Pulse 81 Temp 36.3 ?C (97.4 ?F) (Temporal Artery) Resp 20 Ht 160 cm (5' 3) Wt 94.3 kg (207 lb 14.3 oz) SpO2 95% BMI 36.83 kg/m2 Alert, oriented, appears well HEENT no conjunctival lesions, no thrush NECK supple, no LAD CHEST clear, right samantha catheter entry site benign, left pheresis catheter benign appearing HEART regular, no mRG ABDO soft, nontender, mild distension EXTREM bilateral LE symmetric erythema of lower legs to ankle, blanches to pressure, nontender ?? Laboratory data: WBC 1.21, HCT 23, PLTs 82, Cr 1.04 ?? Microbiology data: 08/28: blood x 2 NGTD 08/26: blood catheter MRSE, blood peripheral NGTD 08/25 blood x 2 E faecalis and now MRSE 2 of 2 sets from and periphery 08/25: stool C diff ?? Imaging data: CXR reviewed, no infiltrates ?? ASSESSMENT:? 1. Antiphospholipid syndrome?(on plasmapheresis- PLEX every other week, prednisone?5/10mg) 2. 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 stents and Endoglix AFX endograft at the inferior vena caval bifurcation) on warfarin,?extensive thrombectomy at outside hospital for right lower extremity and IVC thrombus. 3. DAH x 5 4. HFpEF due to Rituximab. 5.?MRSE BSI attributed to tunneled catheter treated with 6 weeks of iv daptomycin in 02/02. ?? Admitted with fever and diarrhea. Found to have recurrence of C diff and E faecalis+ MRSE BSI. Suspected primary line infection (grew from line in 12 hours compared to 20 hours from periphery). Presence of MRSE argues against GI source. UA not suggestive of urinary source. ?? RECOMMENDATIONS:? 1. Changed amp to daptomycin as per earlier note 2. Continue flagyl 500 mg TID for C diff 3. Obtain cultures from the plex catheter. Hopefully will not need removal 4. Plan to arrange for samantha/partida removal. New line can be inserted when blood cultures negative x 48 hours, no fever. Dominique Wright MD August 29, 2017 12:25 p.m. XR CHEST 1V FRONTAL Observed: 08/29/2017 Status: F Source: [facility] 11:39 AM [facility] REPOSITORY * * *Final Report* * * DATE OF EXAM: Aug 29 2017 11:39AM [facility] [id number] - XR CHEST 1V FRONTAL PORT / PROCEDURE REASON: Hemoptysis * * * * Physician Interpretation * * * * EXAMINATION: CHEST RADIOGRAPH (PORTABLE SINGLE VIEW AP) Exam Date/Time: 08/29/2017 11:39 AM Indication: Hemoptysis MQ: XCP_4 Comparison: 08/25/2017 RESULT: See impression. IMPRESSION: Lines, tubes, and devices: Right IJ central venous catheter and a left IJ indwelling catheter remains in place. Lungs and pleura: There are symmetric interstitial opacities in bowel perihilar regions, slightly more prominent since the prior exam. No substantial pleural effusions or large pneumothorax is identified. Cardiomediastinal silhouette: The cardiomediastinal silhouette is unchanged. Other: Practice Support Specialist: PSCB Transcribe Date/Time: Aug 29 2017 2:26P Dictated by : DANNY COSTA MD This examination was interpreted and the report reviewed and electronically signed by: DANNY COSTA MD on Aug 29 2017 2:26PM EST [id number] PROGRESS Observed: 08/29/2017 Status: COMPLETED Source: [place] 10:46 AM [facility] REPOSITORY HNO ID: [id number] Author: Gael Simmons Service: Hospital Medicine Author Type: Physician Type: Progress Notes Filed: 08/29/2017 12:47 PM Note Text: Medicine [place] - Vipul Marie Progress Note PATIENT NAME: Paloma Cannon Brief Plan for Today - Appreciate ID recommendations; Switch ampicillin to daptomycin as 3 culltures positive for MRSE - Monitor blood count - Hold off CT Abd and line removal as BCx from 08/28 NG x 24hrs - F/u ECHO, fungal battery Interval History No acute events overnight, afebrile 24 hours, HDS Diarrhea is improving, 2 Bm yesterday, decreased cramping Subjectively feels better today No need for line removal as BCx from 08/28 NG x 1d Switched to daptomycin to cover for MRSE, will monitor counts and change in clinical status closely Medications Current Facility-Administered Medications: DAPTOmycin 750 mg in NaCl 0.9% 50 mL (CUBICIN) 750 mg INTRAVENOUS q 24 HR diphenhydrAMINE 25 mg in D5W 50 mL 25 mg INTRAVENOUS PRN prochlorperazine 5 mg injection (COMPAZINE) 5 mg INTRAVENOUS q 4 H PRN metroNIDAZOLE 500 mg PREMIX piggyback (FLAGYL) 500 mg INTRAVENOUS q 8 H sulfamethoxazole-trimethoprim 800-160 mg 1 tablet (BACTRIM DS,SEPTRA DS) 1 tablet ORAL -- gabapentin 300 mg cap(s) (NEURONTIN) 300 mg ORAL q 8 H predniSONE 10 mg tab(s) (DELTASONE) 10 mg ORAL DAILY 0.9% NaCl 10 mL 10 mL INTRAVENOUS q 12 H 0.9% NaCl 20 mL 20 mL INTRAVENOUS PRN warfarin order for discharge OTHER PRN Physical Exam BP 119/62 Pulse 81 Temp 36.3 ?C (97.4 ?F) (Temporal Artery) Resp 20 Ht 160 cm (5' 3) Wt 94.3 kg (207 lb 14.3 oz) SpO2 95% BMI 36.83 kg/m2 General: No acute distress. AANDOx3. HEENT: PERRLA. EOMi. Neck: No swellings. Has Right sided Samantha catheter x 2 years for Iv access, Left sided Johnny catheter x 4 years for bi monthly PLEX CV: Normal rate and rhythm. Resp: CTA b/l. Maintained sats on baseline NC 2L Abdomen: Soft, nontender, bowel sounds presents, decreased distension Extremities: No pedal edema b/l. Neuro: CN II-XII Grossly Intact. Fluid Balance Intake/Output Summary (Last 24 hours) at 08/29/17 1048 Last data filed at 08/29/17 0900 Gross per 24 hour Intake 1100 ml Output 750 ml Net 350 ml Labs CBC, Coags, BMP, Mg, Phos Recent Labs 08/29/17 0616 08/29/17 0407 08/28/17 0428 08/27/17 0506 WBC -- 1.21* 2.58* 1.47* HB -- 7.4* 7.9* 7.1* HCT -- 23.3* 25.2* 22.9* PLT -- 81* 82* 56* INR -- 2.8* 3.7* 3.5* NA 139 -- 137 133* K 3.7 -- 3.6* 3.9 CHLOR 106* -- 104 98 CO2 22 -- 20* 22 BUN 10 -- 13 17 CREAT 1.04* -- 1.18* 1.55* GLUC 69* -- 78 96 CA 8.0* -- 7.8* 7.4* MG -- -- -- 2.2 P -- -- -- 4.7 Liver Function, Amylase, AND Lipase Recent Labs 08/29/17 0616 08/28/17 0428 TPROT 5.3* 5.1* ALB 3.1* 3.1* ALT 8 6* AST 11* 15 ALKPHOS 40 42 TBILI 0.4 0.5 Assessment and Plan The patient is a 27 year old female with a Gram-positive bacteremia in the setting of C difficile Colitis, pancytopenia, and CAPRICE. ? 1.) Sepsis d/t E fecalis Presented with fever + nausea/vomiting, 2/2 blood cultures from 08/25 showed Gram-positive cocci in pairs + chains, currently afebrile and hemodynamically stable BCX from 08/28 NG x 24 hrs Plan: - Quiñonez sensitive E fecalis; - Needs coverage for MRSE so switched from Ampicillin to daptomycin 2.) MRSE bacteremia 3 line cultures positive for MRSE (2/2 x2/ and 1/2 x2/) Needs coverage for MRSE Prior adverse reaction to vancomycin - CAPRICE Plan: - Switch to Daptomycin ? 3.) C difficile Colitis Multiple bouts of diarrhea on presentation, C difficile assay positive Plan: - metronidazole - contact precautions ? 4.) Pancytopenia Unclear etiology, possibly related to medications (cyclophosphamide or bactrim she's been taking for PJP prophylaxis), reticulocyte count 1.5% (inadequate bone marrow compensation) CMV negative Plan: - Hold cyclophosohamide - fungal battery 4.) CAPRICE Elevated Cr (baseline about 1), UA was clean with no signs of infection, FENa < 1%, likely pre-renal from dehydration 2/2 diarrhea with hypotension from bacteremia Plan: - Returning to baseline - strict IANDOs - avoid nephrotoxins - avoid NSAIDS + iv contrast - iv fluids as necessary ? Chronic Problems: 1. Anti-phospholipid Syndrome 2. Hypertension 3. HFpEF - f/u ECHO 4. Heparin-induced Thrombocytopenia 5. 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 GERD ? Other: Diet: Regular GI AND DVT Prophylaxis: warfarin PT/OT Disposition Recs: N/A Code Status: Full code ? Case to be discussed with staff, Dr Simmons SIGNATURE: [place] [id number] DATE of SERVICE: August 29, 2017 TIME of SERVICE: 10:[address] [facility] STAFF PHYSICIAN NOTE OF PERSONAL INVOLVEMENT IN CARE I have reviewed the documentation obtained and documented by the team healthcare provider (fellow, resident, nurse practitioner or physician child nutrition assistant) and I personally participated in the fernandes components. I have discussed the case and management of the patient's care and the note has been revised / addended to reflect my direct input. Cough with bloody tinged sputum today, concerning for DAH. CXR and monitor closely. [facility], agree with ID will need to be removed. Appreciate ID support Gael Simmons MD [facility] Medicine Staff PAGER: [phone] DATE of Service: 08/29/2017 TIME of Service: 12:46 PM CONSULT PROG Observed: 08/29/2017 Status: COMPLETED Source: [place] 7:55 AM [facility] REPOSITORY HNO ID: [id number] Author: Dominique Wright Service: Infectious Disease Author Type: Physician Type: Consult Progress Note Filed: 08/29/2017 7:59 AM Note Text: ID BRIEF NOTE Blood cultures from line now growing MRSE from 3 sets. Previously only one set. 08/25: blood x 2 line and periphery MRSE + E faecalis (sensitive to ampicillin) 08/26: blood x 1 of 2 (central line) growing MRSE 08/28: blood x 2 NGTD Will need to cover both E faecalis and MRSE. Please change ampicillin to daptomycin 8 mg/kg daily. Patient reluctant to be on longer term vancomycin as she had renal issues with it previously. Dominique Wright MD August 29, 2017 8 a.m. NURSING PROG Observed: 08/29/2017 Status: COMPLETED Source: [place] 6:51 AM [facility] REPOSITORY HNO ID: [id number] Author: Lisseth (Rn) JEFF Palmer Service: Nursing Author Type: Registered Nurse Type: Nursing Progress Note Filed: 08/29/2017 6:52 AM Note Text: Nursing Progress Note Patient Name: Paloma Cannon Patient Location: [place] [id number]/[id number] Daily Note: 0650 - Vipul nights paged to notify that Blood Cx drawn 08/26 @ 1828 from central line + MRSE. This note was completed by: Lisseth Palmer RN COMP METABOLIC PANEL Collected: 08/29/2017 Status: F Source: [place] 6:16 AM [facility] REPOSITORY TYPE CODE TESTS RESULT OUT OF REFERENCE UNITS RANGE LAB TP 6.3-8.0 g/dL Low Protein, Total 5.3 LAB ALB 3.9-4.9 g/dL Low Albumin 3.1 LAB CA 8.5-10.2 mg/dL Low Calcium, Total 8.0 LAB TBIL 0.2-1.3 mg/dL Bilirubin, Total 0.4 LAB ALKP 32-117 U/L Alkaline Phosphatase 40 LAB AST 13-35 U/L Low AST 11 LAB GLU 74-99 mg/dL Low Glucose 69 Result Comment: The [place] [employer] (ADA) provides guidance for cutoff values for fasting glucose and random glucose. The ADA defines fasting as no caloric intake for at least 8 hours. Fas ting plasma glucose results between 100 to 125 mg/dL indicate increased risk for diabetes (prediabetes). Fasting plasma glucose results greater than or equal to 126 mg/dL meet the criteria for diagnosis of diabetes. In the absence of unequivocal hyperglycemia, results should be confirmed by repeat testing. In a patient with classic symptoms of hyperglycemia or hyperglycemic crisis, random plasma glucose results greater than or equal to 200 mg/dL meet the criteria for diagnosis of diabetes. Reference: Standards of Medical Care in Diabetes 2016, [place] [employer]. Diabetes Care. 2016.39(Suppl 1). LAB BUN 7-21 mg/dL BUN 10 LAB CRET 0.58-0.96 mg/dL Creatinine High 1.04 LAB NA 136-144 mmol/L Sodium 139 LAB K 3.7-5.1 mmol/L Potassium 3.7 LAB CL 97-105 mmol/L Chloride High 106 LAB CO2 22-30 mmol/L CO2 22 LAB AGAP 9-18 mmol/L Anion Gap 11 LAB ALT 7-38 U/L ALT 8 LAB GFRAA eGFR- Amer. >60 LAB GFRNAA . eGFR-All Other Races >60 Result Comment: eGFR (Estimated GFR) Units of measure: mL/min/1.73 meters squared eGFR is derived from the reexpressed MDRD Study equation using the following parameters: serum creatinine, age, gender and race. The creatinine assay has been calibrated to be traceable to IDMS. An eGFR <60 mL/min/1.73m2 for >3 months is consistent with chronic kidney disease. Refer to KDOQI guidelines for clinical interpretation. In patients with unstable renal function, e.g. those with acute kidney injury, the eGFR may not accurately reflect actual GFR. Performed By: #### CMP #### [facility] [address] [place], [place] [address] PROTIME Collected: 08/29/2017 Status: F Source: [place] 4:07 AM [facility] REPOSITORY TYPE CODE TESTS RESULT OUT OF RANGE REFERENCE UNITS LAB PSEC 9.7-13.0 sec High PT Sec 27.6 LAB INR 0.9-1.3 High PT INR 2.8 Result Comment: Vitamin K Antagonist (VKA) Therapeutic Range: INR 2 to 3 (Target INR of 2.5) Note: For patients treated with VKA drugs, such as warfarin, the [place] [employer] 2012 Guideline recommends a therapeutic INR range of 2 to 3 (target INR of 2.5). This recommendation includes high-risk patients with antiphospholipid syndrome with previous arterial or venous thromboembolism, current-generation mechanical or bioprosthetic aortic heart valve replacement. Note: Patients with mechanical aortic valve replacement and additional risk factors for thromboembolic events (atrial fibrillation, previous thromboembolism, LV dysfunction, hypercoagulable conditions) or an older generation mechanical AVR (i.e., ball in-Cage) or any mechanical MVR should have a INR therapeutic range of 2.5 to 3.5 (target INR of 3). Michael GH, et al. Chest 2012, 141:7S-47S Diogenes RA, et al. [facility] 2017, 70: 252-289 Performed By: #### PT, CBCDIF #### [facility] [address] [place], [place] [address] CBC AND DIFFERENTIAL Collected: 08/29/2017 Status: F Source: [place] 4:07 AM [facility] REPOSITORY TYPE CODE TESTS RESULT OUT OF RANGE REFERENCE UNITS LAB WBC 3.70-11.00 k/uL Low WBC 1.21 Result Comment: Result checked and verified No clot detected. LAB RBC 3.90-5.20 m/uL RBC Low 2.79 LAB HGB 11.5-15.5 g/dL Hemoglobin Low 7.4 LAB HCT 36.0-46.0 % Hematocrit Low 23.3 LAB MCV 80.0-100.0 fL MCV 83.5 LAB MCH 26.0-34.0 pG MCH 26.5 LAB MCHC 30.5-36.0 g/dL MCHC 31.8 LAB RDWCV 11.5-15.0 % RDW-CV High 21.0 LAB PLTCT 150-400 k/uL Platelet Low Count 81 Result Comment: Result checked and verified No clot detected. LAB MPV 9.0-12.7 fL MPV <<DO NOT REPORT>> LAB ANEUT % Neut% 80.7 LAB AANEUT 1.45-7.50 k/uL Abs Neut 0.98 Low LAB ALYMP % Lymph% 7.1 LAB AALYMP 1.00-4.00 k/uL Abs Lymph 0.09 Low LAB AMONO % [place]% 4.2 LAB AAMONO <0.87 k/uL Abs [place] 0.05 LAB AEOS % Eosin% 4.7 LAB AAEOS <0.46 k/uL Abs Eosin 0.06 LAB ABASO % Baso% 2.8 LAB AABASO <0.11 k/uL Abs Baso 0.03 LAB NRBC 0 /100 WBC NRBCs 4 High LAB AMETA % [place]% 0.5 LAB ANIIMI Anisocytosis Present LAB LFTIMI Left Shift Present LAB GNTPLW Giant Platelets Occasional LAB OVAIMI Ovalocytes Few LAB POLIMI Polychromasia Slight LAB RCFIMI RBC Fragments Few LAB PLTEST Platelet Estimate Platelet estimate decreased LAB DTYP DTYPE Manual Diff Performed By: #### PT, CBCDIF #### [facility] [address] [place], [place] [address] NURSING PROG Observed: 08/29/2017 Status: COMPLETED Source: [place] 2:21 AM [facility] REPOSITORY HNO ID: [id number] Author: Jeff Oates RN Service: (none) Author Type: Registered Nurse Type: Nursing Progress Note Filed: 08/29/2017 2:22 AM Note Text: Nursing Progress Note Patient Name: Paloma Cannon Patient Location: G0 [id number]/[id number] Daily Note: 0217 Lab called urgent value, +blood cultures on 08/26 from central line showing gram + cocci and clusters. Vipul pride paged. This note was completed by: Lashon Howell RN Observed: 08/28/2017 Status: F Source: [place] BLOOD CULTURE 4:40 PM [facility] REPOSITORY Culture Result - No growth 5 days Performed By: #### BLCUL #### [facility] [address], [place] [address] Observed: 08/28/2017 Status: F Source: [place] BLOOD CULTURE 4:20 PM [facility] REPOSITORY Culture Result - No growth 5 days Performed By: #### BLCUL #### [facility] [address] [place], [place] [address] PROGRESS Observed: 08/28/2017 Status: COMPLETED Source: [place] 1:55 PM [facility] REPOSITORY HNO ID: [id number] Author: Gael Simmons Service: Hospital Medicine Author Type: Physician Type: Progress Notes Filed: 08/28/2017 3:05 PM Note Text: [facility] [place] - Vipul Marie Progress Note PATIENT NAME: Paloma Cannon Brief Plan for Today - Repeat blood cultures today - Continue Ampicillin and Flagyl - Follow up ECHO, CMV, fungal battery - Monitor SCr Interval History No acute events overnight, afebrile 24 hours, HDS Diarrhea is improving, subjectively feels better today Will hold off on Line removal and follow up blood cultures serially Medications Current Facility-Administered Medications: ampicillin 2 g in NaCl 0.9% 100 mL MB+/ADD-[place] 2 g INTRAVENOUS q 6 H diphenhydrAMINE 25 mg in D5W 50 mL 25 mg INTRAVENOUS PRN prochlorperazine 5 mg injection (COMPAZINE) 5 mg INTRAVENOUS q 4 H PRN metroNIDAZOLE 500 mg PREMIX piggyback (FLAGYL) 500 mg INTRAVENOUS q 8 H sulfamethoxazole-trimethoprim 800-160 mg 1 tablet (BACTRIM DS,SEPTRA DS) 1 tablet ORAL -WE- gabapentin 300 mg cap(s) (NEURONTIN) 300 mg ORAL q 8 H predniSONE 10 mg tab(s) (DELTASONE) 10 mg ORAL DAILY 0.9% NaCl 10 mL 10 mL INTRAVENOUS q 12 H 0.9% NaCl 20 mL 20 mL INTRAVENOUS PRN warfarin order for discharge OTHER PRN Physical Exam BP 115/56 Pulse 89 Temp 36.7 ?C (98.1 ?F) (Temporal Artery) Resp 18 Ht 160 cm (5' 3) Wt 94.3 kg (207 lb 14.3 oz) SpO2 100% BMI 36.83 kg/m2 General: No acute distress. AANDOx3. HEENT: PERRLA. EOMi. Neck: No JVD. No LAD. CV: Normal rate and rhythm. No murmurs or rubs auscultated. Resp: CTA b/l. No wheezing or crackles. Abdomen: Soft, nontender, nondistended abdomen. BSx4. Extremities: No pedal edema b/l. Neuro: CN II-XII Grossly Intact. Fluid Balance Intake/Output Summary (Last 24 hours) at 08/28/17 1356 Last data filed at 08/28/17 1300 Gross per 24 hour Intake 1911 ml Output 1300 ml Net 611 ml Labs .CBC, Coags, BMP, Mg, Phos Recent Labs 08/28/17 0428 08/27/17 0506 08/26/17 0501 WBC 2.58* 1.47* 2.07* HB 7.9* 7.1* 7.9* HCT 25.2* 22.9* 25.7* PLT 82* 56* 61* INR 3.7* 3.5* 2.5* NA 137 133* 133* K 3.6* 3.9 3.6* CHLOR 104 98 99 CO2 20* 22 21* BUN 13 17 11 CREAT 1.18* 1.55* 1.40* GLUC 78 96 73* CA 7.8* 7.4* 7.6* MG -- 2.2 1.6* P -- 4.7 2.7 Liver Function, Amylase, AND Lipase Recent Labs 08/28/17 0428 08/25/17 1735 08/25/17 1730 TPROT 5.1* -- 5.4* ALB 3.1* -- 3.3* ALT 6* -- <5* AST 15 -- 12* ALKPHOS 42 -- 52 TBILI 0.5 -- 0.9 LACT -- 0.8 -- Assessment and Plan The patient is a 27 year old female with a Gram-positive bacteremia in the setting of C difficile Colitis, pancytopenia, and CAPRICE. ? 1.) Gram-positive bacteremia Presented with fever + nausea/vomiting, 2/2 blood cultures from 08/25 showed Gram-positive cocci in pairs + chains, currently afebrile and hemodynamically stable Plan: - Pans ensitive E fecalis; started on Ampicillin ? 2.) C difficile Colitis Multiple bouts of diarrhea on presentation, C difficile assay positive Plan: - metronidazole - contact precautions ? 3.) Pancytopenia Unclear etiology, possibly related to medications (cyclophosphamide or bactrim she's been taking for PJP prophylaxis), reticulocyte count 1.5% (inadequate bone marrow compensation) Plan: - Hold cyclophosohamide - f/u CMV + fungal battery 4.) CAPRICE Elevated Cr (baseline about 1), UA was clean with no signs of infection, FENa < 1%, likely pre-renal from dehydration 2/2 diarrhea with hypotension from bacteremia Plan: - Returning to baseline - strict IANDOs - avoid nephrotoxins - avoid NSAIDS + iv contrast - iv fluids as necessary ? Chronic Problems: 1. Anti-phospholipid Syndrome 2. Hypertension 3. Heparin-induced Thrombocytopenia 4. 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 GERD ? Other: Diet: Regular GI AND DVT Prophylaxis: warfarin PT/OT Disposition Recs: N/A Code Status: Full code ? Case to be discussed with staff. SIGNATURE: [place] [id number] DATE of SERVICE: August 28, 2017 TIME of SERVICE: 1:[address] FRED STONE, SR. HOSPITAL STAFF PHYSICIAN NOTE OF PERSONAL INVOLVEMENT IN CARE I have reviewed the documentation obtained and documented by the team healthcare provider (fellow, resident, nurse practitioner or physician child nutrition assistant) and I personally participated in the fernandes components. I have discussed the case and management of the patient's care and the note has been revised / addended to reflect my direct input. Gael Simmons MD [facility] Medicine Staff PAGER: [phone] DATE of Service: 08/28/2017 TIME of Service: 3:05 PM CONSULT PROG Observed: 08/28/2017 Status: COMPLETED Source: [place] 1:03 PM [facility] REPOSITORY HNO ID: [id number] Author: Dominique Wright Service: Infectious Disease Author Type: Physician Type: Consult Progress Note Filed: 08/28/2017 2:34 PM Note Text: INFECTIOUS DISEASE CONSULT SERVICE PROGRESS NOTE Date: August 28, 2017 Patient Name: Paloma Cannon Interval History: Doing well. MEDICATIONS Current Facility-Administered Medications: ampicillin 2 g in NaCl 0.9% 100 mL MB+/ADD-[place] 2 g INTRAVENOUS q 6 H diphenhydrAMINE 25 mg in D5W 50 mL 25 mg INTRAVENOUS PRN prochlorperazine 5 mg injection (COMPAZINE) 5 mg INTRAVENOUS q 4 H PRN metroNIDAZOLE 500 mg PREMIX piggyback (FLAGYL) 500 mg INTRAVENOUS q 8 H sulfamethoxazole-trimethoprim 800-160 mg 1 tablet (BACTRIM DS,SEPTRA DS) 1 tablet ORAL MO-WE-FR gabapentin 300 mg cap(s) (NEURONTIN) 300 mg ORAL q 8 H predniSONE 10 mg tab(s) (DELTASONE) 10 mg ORAL DAILY 0.9% NaCl 10 mL 10 mL INTRAVENOUS q 12 H 0.9% NaCl 20 mL 20 mL INTRAVENOUS PRN warfarin order for discharge OTHER PRN Current antibiotics: Ampicillin flagyl Examination: BP 115/56 Pulse 89 Temp 36.7 ?C (98.1 ?F) (Temporal Artery) Resp 18 Ht 160 cm (5' 3) Wt 94.3 kg (207 lb 14.3 oz) SpO2 100% BMI 36.83 kg/m2 Alert, oriented, appears better HEENT no conjunctival lesions, no thrush NECK supple, no LAD CHEST clear, right samantha catheter entry site benign, left pheresis catheter benign appearing HEART regular, no mRG ABDO soft, nontender, mild distension EXTREM bilateral LE symmetric erythema of lower legs to ankle, blanches to pressure, nontender ?? Laboratory data: WBC 2.07, HCT 25, PLTs 61, ALC 0.18, Cr 1.18 ?? Microbiology data: 08/26: blood x 2 NGTD 08/25 blood x 2 E faecalis 2 of 2 sets from and periphery 08/25: stool C diff ?? Imaging data: CXR reviewed, no infiltrates ?? ASSESSMENT:? 1. Antiphospholipid syndrome?(on plasmapheresis- PLEX every other week, prednisone?5/10mg) 2. 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 stents and Endoglix AFX endograft at the inferior vena caval bifurcation) on warfarin,?extensive thrombectomy at outside hospital for right lower extremity and IVC thrombus. 3. DAH x 5 4. HFpEF due to Rituximab. 5.?MRSE BSI attributed to tunneled catheter treated with 6 weeks of iv daptomycin in 02/02. ?? Admitted with fever and diarrhea. Found to have recurrence of C diff and E faecalis BSI. Suspected primary line infection (gre from line in 12 hours compared to 20 hours from periphery) and less likely GI source possible. UA not suggestive of urinary source. ? RECOMMENDATIONS:? 1. Continue ampicillin 2. Continue flagyl 500 mg TID for C diff 3. CT abdomen/pelvis before making decision to remove line to ensure no alternative source. 4. If not alternative source for infection would remove and replace the partida catheter. Does not obviously need the pheresis catheter removed, though it could be seeded. Signature: Dominique Wright MD August 28, 2017 1 p.m. CASE MANAGEM Observed: 08/28/2017 Status: COMPLETED Source: [place] 12:18 PM [facility] REPOSITORY HNO ID: [id number] Author: Hailey Cunningham Service: Care Management Author Type: Chain Maker Loom Control Type: Care Mgt Progress Note Filed: 08/28/2017 12:19 PM Note Text: CARE MANAGEMENT PROGRESS NOTE SERVICE DATE: 08/28/2017 SERVICE TIME: 11:37 LOS: 3 days IM letter given to patient on 08/28/2017. SIGNATURE: Hailey Cunningham, PATIENT NAME: Paloma Cannon DATE: August 28, 2017 TIME: 12:18 PM PAGER/CONTACT #: [phone] PLAN OF CARE Observed: 08/28/2017 Status: COMPLETED Source: [place] 11:58 AM [facility] REPOSITORY HNO ID: [id number] Author: Geraldine Lazar (Oracle Specialist) Service: (none) Author Type: (none) Type: Plan of Care Filed: 09/06/2017 2:07 PM Note Text: [employer] BEDSIDE DELIVERY SURVEY 1. Patient to use [facility] Bedside Delivery - NO time 2. If fax, patient would like us to fax prescriptions to Pharmacy of choice a. Pharmacy: b. Location: c. Phone: 3. Insurance card on file - YES 4. Credit card for payment - NO Patient states that she does not want to wait for her medications to be filled. We offered to fill her medications within 30 minutes and patient still refused stating the person in the room needed to be back home for work. I did explain to her that the Arixtra may be hard to find at home, she stated she was familiar with the medication and could take it to [facility] if needed. PLAN OF CARE Observed: 08/28/2017 Status: COMPLETED Source: [place] 11:45 AM [facility] REPOSITORY HNO ID: [id number] Author: Justina Pollard (Pa) Service: Hematology Author Type: Physician Satellite Tv Technician Installer Type: Plan of Care Filed: 08/28/2017 2:53 PM Note Text: Brief hematology consult sign off note: Paloma is well known to the hematology service. She has CAPS syndrome and is managed by Dr Andujar of Hematology, Dr Claudio of Apheresis and by Vascular service. She also follows with Dr Alicea of pulmonary. She has been on chronic steroids and twice monthly PLEX to control her autoantibodies. She has history of multiple thromboses, has history of HIT, and is maintained on coumadin. She has frequent admissions, currently admitted with pancytopenia with mild neutropenia, c difficile and sepsis. Given history of DAH and multiple admissions for hemoptysis she was recently started on Cytoxan 200mg daily - this was started in late July 2017. She reports that she had a one day episode of malaise and fever. Her temperature at home was as high as 103F. Upon admission she has been placed on broad spectrum antibiotics and Infectious Disease is following her. Over the past 24 hours she has had a defervesence of fever. ID on cultures is Enterococcus faecalis. She also has C difficile. Component Latest Ref Rng AND Units 08/21/2017 08/26/2017 08/27/2017 08/28/2017 WBC 3.70 - 11.00 k/uL 3.22 (L) 2.07 (L) 1.47 (L) 2.58 (L) RBC 3.90 - 5.20 m/uL 3.50 (L) 3.12 (L) 2.75 (L) 3.06 (L) Hemoglobin 11.5 - 15.5 g/dL 8.8 (L) 7.9 (L) 7.1 (L) 7.9 (L) Hematocrit 36.0 - 46.0 % 28.0 (L) 25.7 (L) 22.9 (L) 25.2 (L) MCV 80.0 - 100.0 fL 80.0 82.4 83.3 82.4 MCH 26.0 - 34.0 pG 25.1 (L) 25.3 (L) 25.8 (L) 25.8 (L) MCHC 30.5 - 36.0 g/dL 31.4 30.7 31.0 31.3 RDW-CV 11.5 - 15.0 % 20.0 (H) 21.2 (H) 20.7 (H) 20.9 (H) Platelet Count 150 - 400 k/uL 97 (L) 61 (L) 56 (L) 82 (L) Impression: Pancytopenia and mild neutropenia likely secondary to cytoxan. ? Plan: -Continue holding cytoxan during this hospital stay. Do not resume at discharge, this can be decided during her outpatient visit with Dr. Alicea -If ANC falls less than 500 give Neupogen 480 mcg ?1 and then daily until ANC is greater than 500 -Hematology consult will sign off, please call us back with questions Discussed with Dr.Samaras Justina Pollard PA-C [id number] CASE MGT INIT Observed: 08/28/2017 Status: COMPLETED [facility] [place] REPOSITORY HNO ID: [id number] Author: Dary (Rn) JEFF Jimenes Service: Care Management Author Type: Registered Nurse Type: Care Mgt Initial Assessment Filed: 08/28/2017 10:26 AM Note Text: CARE MANAGEMENT: ASSESSMENT AND DISCHARGE PLAN SERVICE DATE: 08/28/2017 SERVICE TIME: 10:17 AM PRIMARY CARE PHYSICIAN: PEYTON ROGERS MD ADMISSION STATUS: Inpatient POTENTIAL DISCHARGE PLANS Home To Be Determined Patient/Cyanide Case Hardener Stated Goals: to return home Needs Prior to Discharge: To Be Determined Health Insurance: Medicare, Medicaid Living Arrangement: Home Lives With: Spouse Financial Resources: N/A Primary Contact: Extended Emergency Contact Information Primary Emergency Contact: Morteza Cannon Address: [address] [place] [address] Mobile Relation: Spouse Secondary Emergency Contact: Morgan Aiken Mobile Relation: Father Mother: Jane Aiken Supportive: Yes Other Important Patient Contacts: None CAREGIVER ASSESSMENT: Caregiver is ready, willing and able to meet the patient's needs as recommended by the inter-professional team? Yes Patient's transition needs and plan for meeting these needs: TBD, poss need for IV abx at DC Does the patient have an acute stroke diagnosis, or has the patient had a stroke during this admission? No ADVANCE DIRECTIVES: Does Patient Have Advance Directives? No, Patient refused Does Patient Have Concerns About Advance Directives? No PRIOR TO ADMISSION: Baseline Mental Status: Alert AND Oriented, Person, Place , Time and Situation Functional Status: Independent Does Patient Currently Receive Any Community Services or Home Care? None Equipment Prior to Admission: Oxygen 2L NC liters per minute HEALTH: Health Issues Impacting Discharge Plan: Chronic APS Health Literacy Issues: No PSYCHOSOCIAL: Is the Patient Psychosocially Complex? No Family/Patient Understanding of Illness/Diagnosis: Patient acknowledges understanding Medication Adherence: Do you forget to take your medications? I do not forget to take my medication Have you ever stopped taking medications because you felt worse? None of the time Have you ever taken less of your medication than what was prescribed by your doctor? None of the time In the past 3 months, have you had issues obtaining one or more of your medications? None of the time Are you interested in bedside delivery of your medications? Yes Food Concerns: In the Last Month, Have You had Trouble Getting Food? No trouble getting food During the Last Month, Have You Worried Whether Your Food Would Run Out Before You Had Enough Money to Buy More? No Psychosocial Needs: None UTILIZATION: Last Admission Date: Previous admit date: 06/08/2017 Is this Within the Past 30 days? No Has the Patient Been in a Jail Facility in the Past 30 days? N/A FREEDOM OF CHOICE EXPLAINED: N/A HANDOFF COMMUNICATION: Primary Care Physician: PEYTON ROGERS MD Per EMR HPI 27 year old F with h/o: - catastrophic anti-phospholipid antibody syndrome diagnosed in 2013 when she presented with PE/DVT needing extensive percutaneous thrombectomy of her IVC and lower extremity veins followed by placement of B/L?iliac venous?stents and an?endograft into her IVC (triple positive with + lupus anticoagulant, + [id number], and + anti-cardiolipin antibodies, she is on plasmapheresis every other week since and is also on Prednisone 5 mg daily-now on chronic anticoagulation with Warfarin) - diffuse alveolar hemorrhage ( on Cytoxan 200 mg daily) - RONNIE - HFpEF - HTN - chronic kidney disease (but last Cr was 0.95 on 08/21/2017) She presented for fevers upto 103, chills and generalized fatigue which started in morning. No other s/s of cough, cold. Her last plasmapheresis was on 08/28. She has R and L subclavian lines which are used for this. In 03/2017 there was a concern for MALICK line related sepsis when she was d/c on COPAT with Daptomycin. She was also complaining of some burning with urination. No other s/s of nocturia, hematuria, frequency, urgency. When she presented to the ED, VS were consistent with Tm 102.1F, HR 111, BP 144/58. Blood cultures were drawn and she was given V and Z and transferred to [facility] for further management. Introduced myself to patient and explained the role of CM. Patient lives with spouse and states IPTA. Patient has L Chest Tunneled line for pharesis and Central line in R Chest. Patient is on 2LNC at home, [employer] is O2 supplier. Poss need for IV abx at DC. TCC/SW to follow DC needs/date TBD ? SIGNATURE: Dary Jimenes RN PATIENT NAME: Paloma Cannon DATE: August 28, 2017 TIME: 10:17 AM PAGER/CONTACT #: [phone] ALLIED HEALTH Observed: 08/28/2017 Status: COMPLETED Source: [place] 8:49 AM [facility] REPOSITORY HNO ID: [id number] Author: Darrell (Mph) Gildardo Service: Infection Prevention Author Type: (none) Type: Allied Health Filed: 08/28/2017 8:50 AM Note Text: ISOLATION NOTE Admission Date: 08/25/2017 Type of Isolation Recommended: Contact Precautions - Soap and Water (Brown Isolation Sign) Indication: Clostridium difficile Date Isolation Initiated: 08/27/2017 Anticipated Duration of Isolation: Until patient completes 10-14 days of antibiotic therapy for C. difficile and no longer symptomatic Type and Date of Positive Test(s): stool pos C.diff tox by PCR mt 08/26/2017 SIGNATURE: Darrell Ewing PATIENT NAME: Paloma Cannon DATE: August 28, 2017 TIME: 8:50 AM PAGER/CONTACT #: [phone] Infection Prevention after hours/weekend pager: [phone] VANCOMYCIN Collected: 08/28/2017 Status: F Source: [place] 4:28 AM [facility] REPOSITORY TYPE CODE TESTS RESULT OUT OF REFERENCE UNITS RANGE LAB VANCRA 5.0-20.0 ug/mL High Vancomycin 29.9 Result Comment: Reference ranges and high/low indicator flags are provided as general guidelines only. The treating physician must determine appropriate target levels/dosing based on the specific clinical situation. Performed By: #### VANCRA, PT, CBCDIF, BMP, HFP #### [facility] [address], [place] [address] PROTIME Collected: 08/28/2017 Status: F Source: [place] 4:28 AM [facility] REPOSITORY TYPE CODE TESTS RESULT OUT OF RANGE REFERENCE UNITS LAB PSEC 9.7-13.0 sec High PT Sec 35.0 LAB INR 0.9-1.3 High PT INR 3.7 Result Comment: Vitamin K Antagonist (VKA) Therapeutic Range: INR 2 to 3 (Target INR of 2.5) Note: For patients treated with VKA drugs, such as warfarin, the [place] [employer] 2012 Guideline recommends a therapeutic INR range of 2 to 3 (target INR of 2.5). This recommendation includes high-risk patients with antiphospholipid syndrome with previous arterial or venous thromboembolism, current-generation mechanical or bioprosthetic aortic heart valve replacement. Note: Patients with mechanical aortic valve replacement and additional risk factors for thromboembolic events (atrial fibrillation, previous thromboembolism, LV dysfunction, hypercoagulable conditions) or an older generation mechanical AVR (i.e., ball in-Cage) or any mechanical MVR should have a INR therapeutic range of 2.5 to 3.5 (target INR of 3). Michael GH, et al. Chest 2012, 141:7S-47S Diogenes RA, et al. [facility] 2017, 70: 252-289 Performed By: #### VANCRA, PT, CBCDIF, BMP, HFP #### [facility] [address], [place] [address] CBC AND DIFFERENTIAL Collected: 08/28/2017 Status: F Source: [place] 4:28 AM [facility] REPOSITORY TYPE CODE TESTS RESULT OUT OF REFERENCE UNITS RANGE LAB WBC 3.70-11.00 k/uL Low WBC 2.58 LAB RBC 3.90-5.20 m/uL Low RBC 3.06 LAB HGB 11.5-15.5 g/dL Low Hemoglobin 7.9 LAB HCT 36.0-46.0 % Low Hematocrit 25.2 LAB MCV 80.0-100.0 fL MCV 82.4 LAB MCH 26.0-34.0 pG Low MCH 25.8 LAB MCHC 30.5-36.0 g/dL MCHC 31.3 LAB RDWCV 11.5-15.0 % RDW-CV High 20.9 LAB PLTCT 150-400 k/uL Low Platelet Count 82 Result Comment: Result checked and verified No clot detected. LAB MPV 9.0-12.7 fL MPV <<DO NOT REPORT>> LAB ANEUT % Neut% 84.8 LAB AANEUT 1.45-7.50 k/uL Abs 2.19 Neut LAB ALYMP % 4.7 Lymph% LAB AALYMP 1.00-4.00 k/uL Abs 0.12 Low Lymph LAB AMONO % [place]% 5.8 LAB AAMONO <0.87 k/uL Abs 0.15 [place] LAB AEOS % 3.9 Eosin% LAB AAEOS <0.46 k/uL Abs 0.10 Eosin LAB ABASO % Baso% 0.8 LAB AABASO <0.11 k/uL Abs <0.03 Baso LAB AUNRBC 0 /100 WBC NRBCs 0.0 LAB ABNRBC <0.01 k/uL <0.01 Absolute nRBC LAB DTYP DTYPE Auto Diff Performed By: #### VANCRA, PT, CBCDIF, BMP, HFP #### [facility] [address] [place] [id number] BASIC METABOLIC PANL Collected: 08/28/2017 Status: F Source: [place] 4:28 AM [facility] [place] REPOSITORY TYPE CODE TESTS RESULT OUT OF REFERENCE UNITS RANGE LAB GLU 74-99 mg/dL Glucose 78 Result Comment: The [place] Diabetes Association (ADA) provides guidance for cutoff values for fasting glucose and random glucose. The ADA defines fasting as no caloric intake for at least 8 hours. Fas ting plasma glucose results between 100 to 125 mg/dL indicate increased risk for diabetes (prediabetes). Fasting plasma glucose results greater than or equal to 126 mg/dL meet the criteria for diagnosis of diabetes. In the absence of unequivocal hyperglycemia, results should be confirmed by repeat testing. In a patient with classic symptoms of hyperglycemia or hyperglycemic crisis, random plasma glucose results greater than or equal to 200 mg/dL meet the criteria for diagnosis of diabetes. Reference: Standards of Medical Care in Diabetes 2016, [place] [employer] Association. Diabetes Care. 2016.39(Suppl 1). LAB BUN 7-21 mg/dL BUN 13 LAB CRET 0.58-0.96 mg/dL Creatinine High 1.18 LAB NA 136-144 mmol/L Sodium 137 LAB K 3.7-5.1 mmol/L Low Potassium 3.6 LAB CL 97-105 mmol/L Chloride 104 LAB CO2 22-30 mmol/L Low CO2 20 LAB AGAP 9-18 mmol/L Anion Gap 13 LAB CA 8.5-10.2 mg/dL Low Calcium, Total 7.8 LAB GFRAA eGFR- Amer. >60 LAB GFRNAA . eGFR-All Other Races 55 Result Comment: eGFR (Estimated GFR) Units of measure: mL/min/1.73 meters squared eGFR is derived from the reexpressed MDRD Study equation using the following parameters: serum creatinine, age, gender and race. The creatinine assay has been calibrated to be traceable to IDMS. An eGFR <60 mL/min/1.73m2 for >3 months is consistent with chronic kidney disease. Refer to KDOQI guidelines for clinical interpretation. In patients with unstable renal function, e.g. those with acute kidney injury, the eGFR may not accurately reflect actual GFR. Performed By: #### VANCRA, PT, CBCDIF, BMP, HFP #### [facility] [address] [place], [place] [address] HEPATIC FUNCTN PANEL Collected: 08/28/2017 Status: F Source: [place] 4:28 AM [facility] REPOSITORY TYPE CODE TESTS RESULT OUT OF REFERENCE UNITS RANGE LAB ALB 3.9-4.9 g/dL Low Albumin 3.1 LAB TBIL 0.2-1.3 mg/dL Bilirubin, Total 0.5 LAB CBIL <0.2 mg/dL High Bilirubin,Conjuga 0.2 thania LAB ALKP 32-117 U/L Alkaline Phosphatase 42 LAB AST 13-35 U/L AST 15 LAB ALT 7-38 U/L Low ALT 6 LAB TP 6.3-8.0 g/dL Low Protein, Total 5.1 Performed By: #### VANCRA, PT, CBCDIF, BMP, HFP #### [facility] [address] [place], [place] [address] CONSULT PROG Observed: 08/27/2017 Status: COMPLETED Source: [place] 2:10 PM [facility] REPOSITORY HNO ID: [id number] Author: Dmoinique Wright Service: Infectious Disease Author Type: Physician Type: Consult Progress Note Filed: 08/27/2017 2:15 PM Note Text: INFECTIOUS DISEASE CONSULT SERVICE PROGRESS NOTE Date: August 27, 2017 Patient Name: Paloma Cannon Interval history: Feeling better overall. No fever, less diarrhea. MEDICATIONS Current Facility-Administered Medications: NaCl 0.9% iv infusion 60 mL/hr INTRAVENOUS CONTINUOUS vancomycin dosing and monitoring per pharmacy OTHER As Directed vancomycin 1.5 g in D5W 250 mL (VANCOCIN) 0.015 g/kg/dose INTRAVENOUS q 12 HR diphenhydrAMINE 25 mg in D5W 50 mL 25 mg INTRAVENOUS PRN prochlorperazine 5 mg injection (COMPAZINE) 5 mg INTRAVENOUS q 4 H PRN metroNIDAZOLE 500 mg PREMIX piggyback (FLAGYL) 500 mg INTRAVENOUS q 8 H sulfamethoxazole-trimethoprim 800-160 mg 1 tablet (BACTRIM DS,SEPTRA DS) 1 tablet ORAL MO-WE- gabapentin 300 mg cap(s) (NEURONTIN) 300 mg ORAL q 8 H predniSONE 10 mg tab(s) (DELTASONE) 10 mg ORAL DAILY 0.9% NaCl 10 mL 10 mL INTRAVENOUS q 12 H 0.9% NaCl 20 mL 20 mL INTRAVENOUS PRN warfarin order for discharge OTHER PRN piperacillin-tazobactam 3.375 g in dextrose (iso-osmotic) 50 mL (ZOSYN) 3.375 g INTRAVENOUS q 6 HR Current antibiotics: Vancomycin zosyn Examination: BP 105/59 Pulse 78 Temp 36.7 ?C (98.1 ?F) (Temporal Artery) Resp 16 Ht 160 cm (5' 3) Wt 95.4 kg (210 lb 5.1 oz) SpO2 99% BMI 37.26 kg/m2 Alert, oriented, appears ill, not in distress HEENT no conjunctival lesions, no thrush NECK supple, no LAD CHEST clear, right samantha catheter entry site benign, left pheresis catheter benign appearing HEART regular, no mRG ABDO soft, nontender, mild distension EXTREM bilateral LE symmetric erythema of lower legs to ankle, blanches to pressure, nontender ?? Laboratory data: WBC 2.07, HCT 25, PLTs 61, ALC 0.18 ? Microbiology data: 08/26: blood x 2 NGTD 08/25 blood x 2 GPC prs/chains 08/25: stool C diff ? Imaging data: CXR reviewed, no infiltrates ? ASSESSMENT: 1. Antiphospholipid syndrome?(on plasmapheresis- PLEX every other week, prednisone?5/10mg) 2. 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 stents and Endoglix AFX endograft at the inferior vena caval bifurcation) on warfarin, extensive thrombectomy at outside hospital for right lower extremity and IVC thrombus. 3. DAH x 5 4. HFpEF due to Rituximab. 5. MRSE BSI attributed to tunneled catheter treated with 6 weeks of iv daptomycin in 02/02. ? Admitted with fever and diarrhea. Found to have recurrence of C diff and GPCs in pairs/chains from blood cultures. Growing enterococcus faecalis. Likely be to sensitive to ampicillin given response to therapy. Suspected primary line infection though GI source possible. UA not suggestive of urinary source. ? RECOMMENDATIONS: 1. Can change zosyn and vanco to ampicillin 2 gram Q 6 hours 2. Continue flagyl 500 mg TID for C diff 3. Consider CT abdomen/pelvis before making decision to remove line to ensure no alternative source. 4. No current urgency to remove line, will discuss tomorrow. Signature: Dominique Wright MD August 27, 2017 2:15 p.m. CONSULT Observed: 08/27/2017 Status: COMPLETED Source: [place] 12:54 PM [facility] REPOSITORY HNO ID: [id number] Author: Dominique Rios Service: Hematology/Oncology Author Type: Physician Type: Consults Filed: 08/27/2017 4:09 PM Note Text: Hematology Consult Note PATIENT NAME: Paloma Martinez [facility] NO.: [id number] REQUESTING SERVICE: Internal Medicine History of Present Illness: Paloma is well known to the hematology service. She has CAPS syndrome and is managed by Dr Andujar of Hematology, Dr Claudio of Apheresis and by Vascular service. She also follows with Dr Alicea of pulmonary. She has been on chronic steroids and twice monthly PLEX to control her autoantibodies. She has history of multiple thromboses, has history of HIT, and is maintained on coumadin. She has frequent admissions, currently admitted with pancytopenia with mild neutropenia, c difficile and sepsis. Given history of DAH and multiple admissions for hemoptysis she was recently started on Cytoxan 200mg daily - this was started in late July 2017. She reports that she had a one day episode of malaise and fever. Her temperature at home was as high as 103F. Upon admission she has been placed on broad spectrum antibiotics and Infectious Disease is following her. Over the past 24 hours she has had a defervesence of fever. ID on cultures is Enterococcus faecalis. She also has C difficile. On ROS Feeling better than at time of admission Still with some weakness Denies mucositis Having diarrhea quite frequently still No blood in stool No abdominal pain but has had a poor appetite lately + nausea and vomiting on presentation has resolved No chest pain or SOB Still with some alopecia No hemoptysis ALLERGIES Allergen Reactions - Rhubarb Rash, Hives - Heparin Other: See Comments Per patient history of HIT - was on angiomax however then took l fondaparinux for bridging to coumadin. - Iv Contrast [Iodine] Other: See Comments shuts kidneys down per patient - Rituximab Other: See Comments Elevated cardiac enzymes PAST MEDICAL HISTORY Diagnosis Date - (HFpEF) heart failure with preserved ejection fraction (HCC) 02/20/2016 HFpEF w last EF 50-55% On Torsemide, coreg, hydralazine and imdur at home No signs of acute exacerbation on admission Plan: -Continue home medications - Anasarca 11/29/2013 - Anemia 03/10/2015 Chronic microcytic anemia. 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 Thrombosis, and Diffuse Alveolar Hemorrhage. On Warfarin and PLEX (Twice Weekly)? Plan: -Warfarin 5mg qday-holding for planned EGD on 01/11 d/t supra therapeutic INR -Cont. PO Prednisone 10mg MWFS and 5mg TTS -Pantoprazole for GI PPx of Above -Apharesis was supposed to be yesterday, will contact plasmapheresis team on recommendations - Antiphospholipid syndrome (HCC) - Catastrophic Antiphospholipid antibody syndrome 11/09/2013 - Cholelithiasis 01/11/2017 Likely cause of recent pancreatitis. Plan: Per general surgery, no acute surgical intervention at this time. Will await results of EGD. If active gastritis, favor outpatient cholecystectomy. If no active gastritis on EGD, plan for cholecystectomy this admission. 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 - PAST SURGICAL HISTORY OF Adenoidectomy - PICC LINE INSERT/CONSULT 11/29/2013 - PICC LINE INSERT/CONSULT 03/10/2015 - PICC LINE INSERT/CONSULT 02/20/2016 Social History Marital status: Spouse name: Years of education: Number of children: Occupational History Occupation 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 Social History Main Topics Smoking status: Never Smoker Smokeless status: Never Used Alcohol use: No Drug use: No Sexual activity: Not Currently FAMILY HISTORY Problem Relation Age of Onset - Breast Cancer Mother spine BRCA neg - Ovarian cyst [OTHER] Mother - ovarian cyst [OTHER] Sister - Thyroid No Family History BP 105/59 Pulse 78 Temp 36.7 ?C (98.1 ?F) (Temporal Artery) Resp 16 Ht 160 cm (5' 3) Wt 95.4 kg (210 lb 5.1 oz) SpO2 99% BMI 37.26 kg/m2 Patient is alert and oriented; pale Oropharynx clear; neck supple; no macroglossia; no exudates Heart is regular without murmurs Lungs are clear bilaterally Anterior chest wall?she has a pheresis catheter in her left anterior chest wall and an access catheter in her right anterior chest wall. Abdomen is soft and nontender without guarding or organomegaly No significant edema; normal pulses; no asymmetry She moves extremities ?4 and there are no focal neurologic deficits Labs reviewed: Component Culture Latest Ref Rng AND Units 08/25/2017 5:40 PM Enterococcus faecalis (A) . . . 08/25/2017 5:40 PM Staphylococcus epidermidis (A) Component Latest Ref Rng AND Units 08/26/2017 C. difficile PCR Positive for C. difficile toxin by PCR (A) Component Latest Ref Rng AND Units 08/27/2017 WBC 3.70 - 11.00 k/uL 1.47 (L) RBC 3.90 - 5.20 m/uL 2.75 (L) Hemoglobin 11.5 - 15.5 g/dL 7.1 (L) Hematocrit 36.0 - 46.0 % 22.9 (L) MCV 80.0 - 100.0 fL 83.3 MCH 26.0 - 34.0 pG 25.8 (L) MCHC 30.5 - 36.0 g/dL 31.0 RDW-CV 11.5 - 15.0 % 20.7 (H) Platelet Count 150 - 400 k/uL 56 (L) MPV 9.0 - 12.7 fL <<DO NOT REPORT>> Neut% % 83.1 Abs Neut (ANC) 1.45 - 7.50 k/uL 1.22 (L) Lymph% % 7.8 Abs Lymph 1.00 - 4.00 k/uL 0.11 (L) [place]% % 3.9 Abs [place] <0.87 k/uL 0.06 Eosin% % 2.6 Abs Eosin <0.46 k/uL 0.04 Baso% % 2.6 Abs Baso <0.11 k/uL 0.04 NRBC 0 /100 WBC 1 (H) Anisocytosis Present Ovalocytes Few Polychromasia Slight RBC Fragments Few Tear Drop Few Platelet Estimate Platelet estimate decreased Diff Type Manual Diff Glucose 74 - 99 mg/dL 96 BUN 7 - 21 mg/dL 17 Creatinine 0.58 - 0.96 mg/dL 1.55 (H) Sodium 136 - 144 mmol/L 133 (L) Potassium 3.7 - 5.1 mmol/L 3.9 Chloride 97 - 105 mmol/L 98 CO2 22 - 30 mmol/L 22 Anion Gap 9 - 18 mmol/L 13 Calcium 8.5 - 10.2 mg/dL 7.4 (L) eGFR- 48 eGFR-All Other Races . 40 Impression/Plan: Paloma is a earl 27 year old female with CAPS on every other week Apheresis and recently started on Cytoxan 200mg daily for recurrent DAH. She presents now with pancytopenia, mild neutropenia and fever. I discussed with the patient that certainly, in review of her labs, I suspect that the Cytoxan 200 mg daily is what has caused her pancytopenia and mild neutropenia. We will have to discontinue this. She may be able to tolerate a lower dose in the future given for 3 weeks with 1 week off to allow for marrow recovery, but certainly at this time we would recommend holding it. Given that she is not absolutely neutropenic we would probably hold off on giving Neupogen. I have discussed this with Dr. Wright of infectious disease and she is in agreement. If patient's ANC falls below 500 with give one dose of Neupogen daily until the ANC is greater than 500 and then intermittently as needed. Question will be whether or not the patient's lines for a pheresis and access need to be removed and then replaced after a period of time that cultures are negative. When I spoke to Dr. Wright she was not sure yet at that point what we would recommend because the bacteremia had not yet been identified. We will have to discuss with her regarding recommendations for removal of lines. Plan: ? Stop Cytoxan ? If ANC falls less than 500 give Neupogen 480 ?g ?1 and then daily until ANC is greater than 500 ? I will make Dr. Andujar, Dr Claudio and Dr Alicea aware of patient's admission and will arrange for close follow up. Following with you and please call or page with questions. Dominique Rios, Hematology Consult Service Pager [phone] PT ED Observed: 08/27/2017 Status: COMPLETED Source: [place] 11:22 AM [facility] REPOSITORY HNO ID: [id number] Author: Thuy Mills (Pharmacist) Service: Pharmacy Author Type: Pharmacist Type: Patient Education Filed: 08/27/2017 12:28 PM Note Text: PHARMACY WARFARIN EDUCATION Patient Name: Paloma Cannon Account #: Data Unavailable Admission Date: 08/25/2017 5:15 PM Date of Contact: August 27, 2017 Time of Contact: 11:23 AM Patient new to warfarin? No: Previous (home) dosage: 7.5 mg Sat and Sun; 5 mg Mon,, Mon, , Mon Outpatient follow-up plan: Pt reports she gets her INR checked at Dr. Guillaume Fuller' office ([facility] physician) with his GENERATION MECHANIC HELPER Magdalena Indication for warfarin: deep vein thrombosis (DVT) Target INR range: 2.0 - 3.0 (Target 2.5) Patient received full warfarin education. Initial patient education included: * Reason for taking warfarin * How warfarin works * What the INR test is, frequency of testing, and the importance of monitoring warfarin with scheduled PT/INR blood draws or finger sticks * Information about plans to monitor warfarin post-discharge was reviewed * When to take warfarin and what to do if a dose is missed * Identifying tablet(s) and to notify the doctor/anticoagulation clinic if there is a change in tablet color, shape, or markings * Drug interactions (Rx, OTC, herbal) and importance of notifying the doctor/anticoagulation clinic with any changes. * Do not take or discontinue any medication or over the counter medication except on the advice of the physician or pharmacist because certain medications can affect the PT/INR. * Potential duration of therapy * Signs/symptoms of bleeding and what to do if they occur because warfarin increases the risk of bleeding * Precautionary measures to decrease trauma/bleeding * Signs/symptoms of thrombosis and what to do if they occur * Need to limit or avoid EtOH consumption * Dietary considerations discussing that a ?consistent amount? of foods with vitamin K rather than avoidances should be advised and to avoid major changes in dietary habits, or notify health professional before changing habits because diet can affect the PT/INR * Carrying identification * Importance of notifying healthcare provider and [facility] when hospitalizations occur and when another healthcare provider has asked them to stop/hold warfarin before any procedure * Importance of notifying all healthcare providers they are taking warfarin * Use of control measures if applicable * The importance of taking warfarin as instructed and the potential ramifications of non- compliance were explained to the patient. The patient was provided ?Understanding the Anticoagulant Medication Warfarin? education booklet which includes the following : compliance Issues, dietary advice, follow-up with physician, follow- up monitoring, potential adverse drug reactions and interactions. READINESS TO LEARN COGNITIVE ABILITY: Alert and oriented MOTIVATION TO LEARN: Interested FAMILY SUPPORT: Unable to assess - Family not present INSTRUCTION PROVIDED TO: Patient PATIENT LEARNS BEST BY: Unable to Assess FACTORS AFFECTING LEARNING: Unable to assess PHYSICAL LIMITATIONS AFFECTING LEARNING: None LEARNING RESPONSE DIAGNOSIS: SEE INDICATION(S) ABOVE PATIENT/FAMILY RESPONSE: Verbalizes understanding of: The signs and symptoms of a worsening condition that warrant a call to the physician. The correct actions to take to manage symptoms associated with his/her disease/illness. The physical restrictions and recommendations after discharge from the hospital. Accurate knowledge of prescribed medication prior to discharge. The correct action to take if medication dose is missed. The side effects associated with the medication that warrant a call to the physician. Post discharge follow up instruction Diet / weight monitoring METHOD OF INSTRUCTION: Teach Back asked patient questions to gauge understanding of warfarin SUPPLEMENTAL MATERIAL PROVIDED: Pt refused warfarin booklet, stating she has 12 at home FURTHER RECOMMENDATIONS (if any) none EVIDENCE OF LEARNING Outcomes met: Describes/able to restate information Outpatient Follow-up: Pt reports getting INR checked at Dr. Guillaume Fuller' office of [facility] with his GENERATION MECHANIC HELPER Magdalena Patient extremely pleasant and well-versed on warfarin. States she has been on warfarin since ~2013 Anahi Do (Vulcanized Fiber Unit Operator) Thuy Mills[place] PharmD [id number] NUTRITION Observed: 08/27/2017 Status: COMPLETED Source: [place] 9:11 AM [facility] REPOSITORY [facility] ID: [id number] Author: Edel Berg Service: Nutrition Therapy Author Type: Registered Dietitian Type: Nutrition Filed: 08/27/2017 3:22 PM Note Text: NUTRITION THERAPY INITIAL ASSESSMENT SERVICE DATE: 08/27/2017 SERVICE TIME: 3:00 RECOMMENDED MALNUTRITION DIAGNOSIS: SEVERE PROTEIN-CALORIE MALNUTRITION In the context of Chronic Illness or Injury based on: Unintentional Weight Loss: >7.5% in 3 months Insufficient Energy Intake: Less than 75% energy intake compared to estimated needs for greater than or equal to 1 month NUTRITION CARE PLAN: Problem, Etiology and Signs/Symptoms: Suboptimal protein/energy intake related to predicted reqirements as evidenced by weight loss, fat and muscle loss and poor intakes. 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 Experiencing terrible taste changes. Interested in a G2 gatorade for something more to drink. No problem chewing, swallowing. Currently no nausea, vomiting, diarrhea, constipation or reflux noted. States spouse brings some foods such as soft pretzel. Discussed snack, menu options which were currently declined. Patient will continue to select from the house menu stating: I just need to work through the different menu items and with what I can eat. Present Diet Order: Regular Enteral Access: 0 Nutritional Intake: 08/25- 0 08/26- 25% supper only GI symptoms: anorexia Abdominal Exam: abdomen is soft Is the patient having any pain that is interfering with oral/enteral intake? No ANTHROPOMETRICS Height: 160 cm (5' 3) Admission Weight: 92.5 kg (204 lb) Current Weight: 95.4 kg (210 lb 5.1 oz) Body mass index is 37.26 kg/(m2). class 2 obesity HT/WT/BMI HEIGHT WEIGHT BODY MASS INDEX 08/22/2016 ? 115.032 kg 44.92 01/04/2017 ? 117 kg ? 01/07/2017 ? ? 49.79 02/10/2017 ? 105.3 kg 41.12 02/21/2017 ? 105.235 kg 41.1 03/09/2017 ? ? 46.28 06/08/2017 ? 110.3 kg ? 06/20/2017 5' 2.992 110 kg 42.97 06/27/2017 ? 106.595 kg 41.64 07/11/2017 ? 106.595 kg 41.64 08/21/2017 ? 92.715 kg 36.22 08/25/2017 5' 3 92.5 kg 36.12 ? weight loss : 19.6 % in 1 year 12.2 % in 6 months 16.2% in 3 months ? Resting Metabolic Rate: 1625 Estimated kilocalorie needs: 2113 kilocalories determined by Morris-St. Jeor x 1.3 Estimated protein needs:93-112 grams determined by 1-1.2 grams/kg Current weight Estimated fluid needs: 2113 milliliters based on 1 mL per kcal ? allergy to rhubarb noted. NUTRITION FOCUSED PHYSICAL EXAM: Subcutaneous Fat Loss Orbital Unable to determine at this time Triceps Moderate Mid-axillary at the iliac crest No fat loss Muscle Loss Locations: Temporalis Mild Pectoralis Mild Deltoids Mild Interosseous Mild Latissimus dorsi, trapezius Mild Quadriceps Unable to determine at this time Gastrocnemius Unable to determine at this time Potential micronutrient deficiency revealed in: skin Edema: Yes Lower extremities Severe 3 - 4 Ascites: No Assessment of Functional Status: Unable to assess Temperature Max in 24 hours: Temp (24hrs), Av.7 ?C (98 ?F), Min:36.2 ?C (97.2 ?F), Max:37.9 ?C (100.3 ?F) BP 121/53 Pulse 76 Temp 36.5 ?C (97.7 ?F) (Oral) Resp 16 Ht 160 cm (5' 3) Wt 95.4 kg (210 lb 5.1 oz) SpO2 100% BMI 37.26 kg/m2 Recent Labs 08/27/17 0506 08/25/17 1730 GLUC 96 < > 67* BUN 17 < > 11 CREAT 1.55* < > 1.16* NA 133* < > 135* K 3.9 < > 3.6* CHLOR 98 < > 100 CO2 22 < > 22 ALB -- -- 3.3* HB 7.1* < > 8.8* HCT 22.9* < > 28.7* WBC 1.47* < > 2.94* P 4.7 < > -- MG 2.2 < > -- < > = values in this interval not displayed. Potential Signs of Inflammation: hypoalbuminemia ALLERGIES Allergen Reactions - Rhubarb Rash, Hives - Heparin Other: See Comments Per patient history of HIT - was on angiomax however then took l fondaparinux for bridging to coumadin. - Iv Contrast [Iodine] Other: See Comments shuts kidneys down per patient - Rituximab Other: See Comments Elevated cardiac enzymes Current Facility-Administered Medications: vancomycin dosing and monitoring per pharmacy OTHER As Directed vancomycin 1.5 g in D5W 250 mL (VANCOCIN) 0.015 g/kg/dose INTRAVENOUS q 12 HR diphenhydrAMINE 25 mg in D5W 50 mL 25 mg INTRAVENOUS PRN prochlorperazine 5 mg injection (COMPAZINE) 5 mg INTRAVENOUS q 4 H PRN metroNIDAZOLE 500 mg PREMIX piggyback (FLAGYL) 500 mg INTRAVENOUS q 8 H cyclophosphamide 200 mg cap(s) (CYTOXAN) 200 mg ORAL DAILY sulfamethoxazole-trimethoprim 800-160 mg 1 tablet (BACTRIM DS,SEPTRA DS) 1 tablet ORAL MO-WE-FR gabapentin 300 mg cap(s) (NEURONTIN) 300 mg ORAL q 8 H predniSONE 10 mg tab(s) (DELTASONE) 10 mg ORAL DAILY 0.9% NaCl 10 mL 10 mL INTRAVENOUS q 12 H 0.9% NaCl 20 mL 20 mL INTRAVENOUS PRN warfarin order for discharge OTHER PRN piperacillin-tazobactam 3.375 g in dextrose (iso-osmotic) 50 mL (ZOSYN) 3.375 g INTRAVENOUS q 6 HR MNT Billing Type: Initial Assess/15 min 4 units SIGNATURE: Edel Berg RD LD PATIENT NAME: Paloma Cannon DATE: August 27, 2017 TIME: 9:11 AM PAGER: [phone] PROGRESS Observed: 08/27/2017 Status: COMPLETED Source: [place] 8:21 AM [facility] REPOSITORY [facility] ID: [id number] Author: Kwesi Manriquez Service: General Internal Medicine Author Type: Physician Type: Progress Notes Filed: 08/27/2017 11:22 AM Note Text: Department of Internal Medicine Service: Vipul Marie Progress Note Date: August 27, 2017 / 8:22 AM Patient Name: Paloma Cannon Subjective - no acute issues overnight - remains afebrile, blood pressures a little low this AM (98/46), gave another 1L NS - hemoglobin 7.1, will send type + screen - f/u AM labs, cultures, and echo Objective Vitals: BP 121/53 Pulse 76 Temp (Src) 97.7 (Oral) Resp 16 Ht 5' 3 (1.60m) Wt 210 lb 5.1 oz (95.4kg) SpO2 100% BMI 37.27 kg/(m2). Physical Exam: General: AANDO, in no apparent distress HEENT: normocephalic, atraumatic Heart: RRR, no murmurs, strong peripheral pulses Lungs: CTAB Abdomen: soft, non-tender, non-distended Skin: warm, well perfused, no rashes, mild bilateral LE pitting edema (chronic as per patient) Musculoskeletal: no gross abnormalities Neuro: able to move all extremities Inpatient Medications: Current Facility-Administered Medications: vancomycin dosing and monitoring per pharmacy OTHER As Directed Jcarlos Estrada MD vancomycin 1.5 g in D5W 250 mL (VANCOCIN) 0.015 g/kg/dose INTRAVENOUS q 12 HR Shailee (Res) Serrato 1.5 g at 08/26/17 1834 diphenhydrAMINE 25 mg in D5W 50 mL 25 mg INTRAVENOUS PRN Lorna (Res) Gandhy 25 mg at 08/27/17 0818 prochlorperazine 5 mg injection (COMPAZINE) 5 mg INTRAVENOUS q 4 H PRN Lorna (Res) Gandhy 5 mg at 08/26/17 2047 metroNIDAZOLE 500 mg PREMIX piggyback (FLAGYL) 500 mg INTRAVENOUS q 8 H Lorna (Res) Gandhy 500 mg at 08/27/17 0502 cyclophosphamide 200 mg cap(s) (CYTOXAN) 200 mg ORAL DAILY Kwesi K [place] 200 mg at 08/26/17 1731 sulfamethoxazole-trimethoprim 800-160 mg 1 tablet (BACTRIM DS,SEPTRA DS) 1 tablet ORAL - Jcarlos Estrada MD 1 tablet at 08/25/17 2233 gabapentin 300 mg cap(s) (NEURONTIN) 300 mg ORAL q 8 H Jcarlos Estrada MD 300 mg at 08/27/17 0502 predniSONE 10 mg tab(s) (DELTASONE) 10 mg ORAL DAILY Jcarlos Estrada MD 10 mg at 08/26/17 1256 0.9% NaCl 10 mL 10 mL INTRAVENOUS q 12 H Jcarlos Estrada MD 10 mL at 08/26/17 2001 0.9% NaCl 20 mL 20 mL INTRAVENOUS PRN Jcarlos Estrada MD warfarin order for discharge OTHER PRN Jcarlos Estrada MD piperacillin-tazobactam 3.375 g in dextrose (iso-osmotic) 50 mL (ZOSYN) 3.375 g INTRAVENOUS q 6 HR Jcarlos Estrada MD 3.375 g at 08/27/17 0114 Assessment/Plan The patient is a 27 year old female with a Gram-positive bacteremia in the setting of C difficile Colitis, pancytopenia, and CAPRICE. 1.) Gram-positive bacteremia Presented with fever + nausea/vomiting, 2/2 blood cultures from 08/25 showed Gram-positive cocci in pairs + chains, currently afebrile and hemodynamically stable Plan: - vancomycin + piperacillin-tazobactam - follow blood cultures - follow urine cultures 2.) C difficile Colitis Multiple bouts of diarrhea on presentation, C difficile assay positive Plan: - metronidazole - contact precautions 3.) Pancytopenia Unclear etiology, possibly related to medications (cyclophosphamide or bactrim she's been taking for PJP prophylaxis), reticulocyte count 1.5% (inadequate bone marrow compensation) Plan: - monitor blood counts - f/u CMV + fungal battery - type and screen - will consent for blood - consult Hematology-Oncology 4.) CAPRICE Elevated Cr (baseline about 1), UA was clean with no signs of infection, FENa < 1%, likely pre-renal from dehydration 2/2 diarrhea with hypotension from bacteremia Plan: - strict IANDOs - avoid nephrotoxins - avoid NSAIDS + iv contrast - iv fluids as necessary Chronic Problems: 1. Anti-phospholipid Syndrome 2. Hypertension 3. Heparin-induced Thrombocytopenia 4. 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 GERD Other: Diet: Regular GI AND DVT Prophylaxis: warfarin PT/OT Disposition Recs: N/A Code Status: Full code Case to be discussed with staff. Yasmine Lovell MD Internal Medicine, PGY-1 Pager: [phone] *Note: On Weekdays from 5pm to 7am and Weekends from 3pm to 7am, please page the on-call pager ([phone]).* DR. FRED STONE, SR. HOSPITAL STAFF PHYSICIAN NOTE OF PERSONAL INVOLVEMENT IN CARE: Patient seen with Dr. Russo. I have reviewed the progress note obtained and documented by the resident and I personally participated in the fernandes components. I have discussed the case and management of the patient's care. The following comments revise or confirm relevant fernandes components of the note. 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 stents and Endoglix AFX endograft at the inferior vena caval bifurcation); renal vein thrombosis; on Cytoxan; coumadin; h/o HIT; on iv Plasmapheresis every other week (intolerance to Ritiximab); history of Diffuse alveolar hemorrhage x5 episodes; CKD and HfPEF admitted with high grade fevers; dry heaving followed by watery diarrhea. Initial workup showed relative Pancytopenia which is rather new; normal CXR; Blood cultures: 1/2 GPCs in pairs and chains from central line. No erythema noted around her R subclavian catheter. CXR reviewed. Peripheral smear awaited; Retic count adequate. She was initiated on iv Vanco and Zosyn and iv fluids. Repeat blood cultures sent; stool returned +ve for C diff; flagyl initiated. Appreciate ID input. Per review of records; cytoxan was started in Jun 2017; her peripheral blood cell counts were normal till end of Jul 2017. She defervecsed but her pancytopenia has worsened. Consult hematology regarding holding cytoxan for now. Gentle iv fluids while serum creatinine is still rising; would hold torsemide day to day; while reassessing ongoing GI losses. Adjust Vanco and Zosyn to serum creatinine. INR 2.2 at admission; 3.5 today while on home dose of coumadin. Patient reassured. Care Coordination The majority of the visit was spent counseling and/or coordinating care for the patient. [id number] time was [address] Simmons assumes service tomorrow. Kwesi Manriquez MD Beeper Number: [id number]. Date of Service: August 27, 2017 Time of Service: 11.20 AM. TYPE AND SCREEN Collected: 08/27/2017 Status: F Source: [place] 7:00 AM [facility] REPOSITORY TYPE CODE TESTS RESULT OUT OF REFERENCE UNITS RANGE LAB %ABR B ABO/RH(D) POSITIVE LAB % Antibody POS Screen Performed By: #### TSCR #### [facility] [address], [place] [address] PROTEIN/CREATININE RATIO Collected: Status: F Source: [place] 08/27/2017 5:56 AM [facility] [place] REPOSITORY TYPE CODE TESTS RESULT OUT OF REFERENCE UNITS RANGE LAB UTPR 0-20 mg/dL Protein Urine 17 Random LAB UCRR 20-300 mg/dL Creatinine,Ur 49.4 ine,Ran LAB PCRAT <0.2 High Protein/Creat 0.3 inine Ratio Performed By: #### PRATIO #### [facility] [address], [place] [address] SODIUM,URINE,RANDOM Collected: Status: F Source: [place] 08/27/2017 5:56 AM [facility] REPOSITORY TYPE CODE TESTS RESULT OUT OF RANGE REFERENCE UNITS LAB UNAR 14-216 mmol/L 28 Sodium,Urine ,Random Performed By: #### UNAR #### [facility] [address] [place], [place] [address] PROTIME Collected: 08/27/2017 Status: F Source: [place] 5:06 AM [facility] REPOSITORY TYPE CODE TESTS RESULT OUT OF RANGE REFERENCE UNITS LAB PSEC 9.7-13.0 sec High PT Sec 33.9 LAB INR 0.9-1.3 High PT INR 3.5 Result Comment: Vitamin K Antagonist (VKA) Therapeutic Range: INR 2 to 3 (Target INR of 2.5) Note: For patients treated with VKA drugs, such as warfarin, the [place] [employer] 2012 Guideline recommends a therapeutic INR range of 2 to 3 (target INR of 2.5). This recommendation includes high-risk patients with antiphospholipid syndrome with previous arterial or venous thromboembolism, current-generation mechanical or bioprosthetic aortic heart valve replacement. Note: Patients with mechanical aortic valve replacement and additional risk factors for thromboembolic events (atrial fibrillation, previous thromboembolism, LV dysfunction, hypercoagulable conditions) or an older generation mechanical AVR (i.e., ball in-Cage) or any mechanical MVR should have a INR therapeutic range of 2.5 to 3.5 (target INR of 3). Michael GH, et al. Chest 2012, 141:7S-47S Diogenes RA, et al. [facility] 2017, 70: 252-289 Performed By: #### PT, BMP, MG1, PHOS, CBCDIF #### [facility] [address], [place] [address] BASIC METABOLIC PANL Collected: 08/27/2017 Status: F Source: [place] 5:06 AM [facility] REPOSITORY TYPE CODE TESTS RESULT OUT OF REFERENCE UNITS RANGE LAB GLU 74-99 mg/dL Glucose 96 Result Comment: The [place] [employer] (ADA) provides guidance for cutoff values for fasting glucose and random glucose. The ADA defines fasting as no caloric intake for at least 8 hours. Fas ting plasma glucose results between 100 to 125 mg/dL indicate increased risk for diabetes (prediabetes). Fasting plasma glucose results greater than or equal to 126 mg/dL meet the criteria for diagnosis of diabetes. In the absence of unequivocal hyperglycemia, results should be confirmed by repeat testing. In a patient with classic symptoms of hyperglycemia or hyperglycemic crisis, random plasma glucose results greater than or equal to 200 mg/dL meet the criteria for diagnosis of diabetes. Reference: Standards of Medical Care in Diabetes 2016, [place] [employer]. Diabetes Care. 2016.39(Suppl 1). LAB BUN 7-21 mg/dL BUN 17 LAB CRET 0.58-0.96 mg/dL Creatinine High 1.55 LAB NA 136-144 mmol/L Low Sodium 133 LAB K 3.7-5.1 mmol/L Potassium 3.9 LAB CL 97-105 mmol/L Chloride 98 LAB CO2 22-30 mmol/L CO2 22 LAB AGAP 9-18 mmol/L Anion Gap 13 LAB CA 8.5-10.2 mg/dL Low Calcium, Total 7.4 LAB GFRAA eGFR- Amer. 48 LAB GFRNAA . eGFR-All Other Races 40 Result Comment: eGFR (Estimated GFR) Units of measure: mL/min/1.73 meters squared eGFR is derived from the reexpressed MDRD Study equation using the following parameters: serum creatinine, age, gender and race. The creatinine assay has been calibrated to be traceable to IDMS. An eGFR <60 mL/min/1.73m2 for >3 months is consistent with chronic kidney disease. Refer to KDOQI guidelines for clinical interpretation. In patients with unstable renal function, e.g. those with acute kidney injury, the eGFR may not accurately reflect actual GFR. Performed By: #### PT, BMP, MG1, PHOS, CBCDIF #### [facility] [address], [place] [address] MAGNESIUM Collected: 08/27/2017 Status: F Source: [place] 5:06 AM [facility] REPOSITORY TYPE CODE TESTS RESULT OUT OF REFERENCE UNITS RANGE LAB MG 1.7-2.3 mg/dL Magnesium 2.2 Performed By: #### PT, BMP, MG1, PHOS, CBCDIF #### [facility] [address] [place], [place] [address] PHOSPHORUS Collected: 08/27/2017 Status: F Source: [place] 5:06 AM [facility] REPOSITORY TYPE CODE TESTS RESULT OUT OF REFERENCE UNITS RANGE LAB PHOS 2.7-4.8 mg/dL Phosphorus 4.7 Performed By: #### PT, BMP, MG1, PHOS, CBCDIF #### [facility] [address] [place], [place] [address] CBC AND DIFFERENTIAL Collected: 08/27/2017 Status: F Source: [place] 5:06 AM [facility] REPOSITORY TYPE CODE TESTS RESULT OUT OF RANGE REFERENCE UNITS LAB WBC 3.70-11.00 k/uL Low WBC 1.47 Result Comment: Result checked and verified No clot detected. LAB RBC 3.90-5.20 m/uL RBC Low 2.75 LAB HGB 11.5-15.5 g/dL Hemoglobin Low 7.1 LAB HCT 36.0-46.0 % Hematocrit Low 22.9 LAB MCV 80.0-100.0 fL MCV 83.3 LAB MCH 26.0-34.0 pG MCH Low 25.8 LAB MCHC 30.5-36.0 g/dL MCHC 31.0 LAB RDWCV 11.5-15.0 % RDW-CV High 20.7 LAB PLTCT 150-400 k/uL Platelet Count 56 Low LAB MPV 9.0-12.7 fL MPV <<DO NOT REPORT>> LAB ANEUT % Neut% 83.1 LAB AANEUT 1.45-7.50 k/uL Abs Neut Low 1.22 LAB ALYMP % Lymph% 7.8 LAB AALYMP 1.00-4.00 k/uL Abs Lymph Low 0.11 LAB AMONO % [place]% 3.9 LAB AAMONO <0.87 k/uL Abs [place] 0.06 LAB AEOS % Eosin% 2.6 LAB AAEOS <0.46 k/uL Abs Eosin 0.04 LAB ABASO % Baso% 2.6 LAB AABASO <0.11 k/uL Abs Baso 0.04 LAB NRBC 0 /100 WBC NRBCs 1 High LAB ANIIMI Anisocytosis Present LAB OVAIMI Ovalocytes Few LAB POLIMI Polychromasia Slight LAB RCFIMI RBC Fragments Few LAB TEAIMI Tear Drop Cells Few LAB PLTEST Platelet Estimate Platelet estimate decreased LAB DTYP DTYPE Manual Diff Performed By: #### PT, BMP, MG1, PHOS, CBCDIF #### [facility] [address] [id number] Observed: 08/26/2017 Status: F Source: [place] BLOOD CULTURE 6:43 PM [facility] REPOSITORY Culture Result - No growth 5 days Performed By: #### BLCUL #### [facility] [address] [address] Observed: 08/26/2017 Status: F Source: [place] BLOOD CULTURE 6:28 PM [facility] REPOSITORY Additional Testing - Methicillin resistant Staphylococcus epidermidis (MRSE) detected by microarray. Single positive cultures of S. epidermidis usually represent contamination. Call lab within 72 h if f urther work up is required. Negative for Streptococcus spp. and Enterococcus spp. by microarray. Culture Result - Staphylococcus epidermidis Refer to specimen collected on 08/25/17 AT 1740 ([id number]) (NOTE) --> ABNORMAL ALERT Positive result called to and read back by:SAE G 08/29/17 --&g t; ABNORMAL ALERT 0215 ANGEL --> ABNORMAL ALERT Methicillin resistant Staphylococcus epidermidis (MRSE) detected by --> ABNORMAL ALERT microarray. Single positive cultures of S. epidermidis u sually --> ABNORMAL ALERT represent contamination. Call lab within 72 h if further work up is --> ABNORMAL ALERT required. Negative for Streptococcus spp. and Enterococcus spp. by --> ABNORMAL ALERT microarray.(*) Called to and read back by: Rufino PALMER OF G81 AT --> ABNORMAL ALERT 0646 ON 08.29.2017. --> ABNORMAL ALERT Bessy MONCADA --> ABNORMAL ALERT --> ABNORMAL ALERT Performed By: #### BLCUL #### [facility] [address] [place], [place] [address] XR ABDOMEN 1V SUPINE Observed: 08/26/2017 Status: F Source: [place] 4:33 PM [facility] REPOSITORY * * *Final Report* * * DATE OF EXAM: Aug 26 2017 4:33PM [facility] [id number] - XR ABDOMEN 1V SUPINE / PROCEDURE REASON: C. difficile colitis * * * * Physician Interpretation * * * * PORTABLE SUPINE ABDOMEN 08/26/2017 4:33 PM HISTORY: C. Difficile colitis TECHNIQUE: 2 supine abdominal film(s). IMPRESSION: No thickened or dilated colon. No dilated small bowel. Bifurcated venous vascular stent profile with the lower lumbar spine and pelvis. Right upper quadrant clips. No Abnormal calcifications. Practice Support Specialist: [facility] Transcribe Date/Time: Aug 26 2017 5:11P Dictated by : SARAI EVANS MD This examination was interpreted and the report reviewed and electronically signed by: SARAI EVANS MD on Aug 26 2017 5:13PM EST [id number] NURSING PROG Observed: 08/26/2017 Status: COMPLETED Source: [place] 3:15 PM [facility] [place] REPOSITORY HNO ID: [id number] Author: Tigist (Rn) JEFF Ramirez Service: (none) Author Type: Registered Nurse Type: Nursing Progress Note Filed: 08/26/2017 3:20 PM Note Text: Nursing Progress Note Patient Name: Paloma Cannon Patient Location: [place] [address] pt left This note was completed by: Tigist Ramirez RN RETICULOCYTE Collected: 08/26/2017 Status: F Source: [place] 1:48 PM [facility] REPOSITORY TYPE CODE TESTS RESULT OUT OF REFERENCE UNITS RANGE LAB RETC 0.4-2.0 % Retic% 1.5 LAB ABRET 0.0180-0.1000 M/uL Abs Retic 0.043 Performed By: #### RETIC, CMVQNT #### [facility] [address] [place], [place] [address] CMV DNA QUANT BY Collected: 08/26/2017 Status: F Source: [place] PCR 1:48 PM [facility] REPOSITORY TYPE CODE TESTS RESULT OUT OF REFERENCE UNITS RANGE LAB CMVIU IU/mL CMV CMV DNA not DNA (IU/mL) detected by PCR. Result Comment: Linear Range 137 - 9,100,000 IU/mL (2.14 - 6.96 log IU/mL) Reference Range: Negative for CMV DNA Performed By: #### RETIC, CMVQNT #### [address] [place], [place] [address] FUNGAL BATTERY - CF Collected: 08/26/2017 Status: F Source: [place] 1:48 PM [facility] REPOSITORY TYPE CODE TESTS RESULT OUT OF REFERENCE UNITS RANGE LAB ASPRCF <1:8 Dilutions Aspergillus AB - <1:8 CF Result Comment: Reference Range: Negative <1:8 LAB BLSTCF <1:8 Dilutions Blastomyces AB - CF <1:8 Result Comment: Reference Range: Negative <1:8 LAB HSTMCF <1:8 Dilutions Histo Mycelial AB-CF <1:8 Result Comment: Reference Range: Negative <1:8 LAB HSTYCF <1:8 Dilutions Histo Yeast <1:8 AB-CF Result Comment: Reference Range: Negative <1:8 LAB COCICF <1:2 Dilutions Coccidiodes AB - CF <1:2 Result Comment: Reference Range: Negative <1:2 Performed By: #### FUNCF #### [address] [place], [place] [address] CONSULT Observed: 08/26/2017 Status: COMPLETED Source: [place] 1:38 PM [facility] REPOSITORY HNO ID: [id number] Author: Dominique Wright Service: Infectious Disease Author Type: Physician Type: Consults Filed: 08/26/2017 2:25 PM Note Text: INFECTIOUS DISEASE CONSULT NOTE Date: August 26, 2017 Patient Name: Paloma Cannon Asked to see patient by Dr. Manriquez for blood stream infection. My recommendations will be communicated back by way of shared medical record. HISTORY OF PRESENT ILLNESS Ms. Nelli Cannon is a 27F with antiphospholipid syndrome?(on plasmapheresis- PLEX every other week, prednisone?5/10mg) with related PE AND?DVT 09/2013 (s/p b/l iliac v. stents and Endoglix AFX endograft at the inferior vena caval bifurcation) on warfarin, extensive thrombectomy at outside hospital for right lower extremity and IVC thrombus. Has experienced DAH x 5 and HFpEF2/2 intolerance to Rituximab. She has a history of MRSE BSI attributed to tunneled catheter treated with 6 weeks of iv daptomycin in 02/02. Had been changed from vancomycin due to possible nephrotoxicity though other possible causes were present. She presented 08/25 to ER with fevers up to 103 F, nausea and vomiting x 6. In ER her temp was 103.2, tachycardic 111, BP 140/58, on her home O2 requirements which are 2 lt NC, breathing with no distress. Lab work here was significant for pancytopenia WBC 2.9 K, Hb 8.8, Plt 72k, hyponatremia 135, K 3.6, CAPRICE 1.16, Hypocalcemia and normal LFTs. Her lactate was 0.8. Two sets of BCx were drawn. She had a negative flu test. Her CXR was unremarkable. She received 1 lt of NS, one dose of Vancomycin and Zosyn and was transferred to the floor for further management. On arrival, she was in no acute distress, still having subjective fevers, mild ches discomfort from vomiting ans burning with urination. She denied chest pain, cough, SOB, abdominal pain, changes in bowel movements, pain around Samantha cath, rashes, no headaches, no bloody stools. Blood cultures from 08/25 are growing GPC pairs, chains. Awaiting [employer] data on initial identification. Stool positive for C diff. PAST MEDICAL HISTORY Diagnosis Date - (HFpEF) heart failure with preserved ejection fraction (HCC) 02/20/2016 HFpEF w last EF 50-55% On Torsemide, coreg, hydralazine and imdur at home No signs of acute exacerbation on admission Plan: -Continue home medications - Anasarca 11/29/2013 - Anemia 03/10/2015 Chronic microcytic anemia. 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 Thrombosis, and Diffuse Alveolar Hemorrhage. On Warfarin and PLEX (Twice Weekly)? Plan: -Warfarin 5mg qday-holding for planned EGD on 01/11 d/t supra therapeutic INR -Cont. PO Prednisone 10mg MWFS and 5mg TTS -Pantoprazole for GI PPx of Above -Apharesis was supposed to be yesterday, will contact plasmapheresis team on recommendations - Antiphospholipid syndrome (HCC) - Catastrophic Antiphospholipid antibody syndrome 11/09/2013 - Cholelithiasis 01/11/2017 Likely cause of recent pancreatitis. Plan: Per general surgery, no acute surgical intervention at this time. Will await results of EGD. If active gastritis, favor outpatient cholecystectomy. If no active gastritis on EGD, plan for cholecystectomy this admission. 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 Social History Main Topics Smoking status: Never Smoker Smokeless status: Never Used Alcohol use: No Drug use: No Sexual activity: Not Currently IMMUNIZATION HISTORY Immunization History Administered Date(s) Administered Influenza Seasonal Inj Quadrivalent Age 3+ Pres Free 05/03/2016 04/27/2017 Influenza Vaccine, Split-Non Spec 04/09/2015 Pneumococcal-13 Vac Conjugate 10/28/2014 MEDICATIONS Medications reviewed. Current antibiotics include: Vancomycin zosyn Current Facility-Administered Medications: vancomycin dosing and monitoring per pharmacy OTHER As Directed vancomycin 1.5 g in D5W 250 mL (VANCOCIN) 0.015 g/kg/dose INTRAVENOUS q 12 HR warfarin 5 mg tab(s) (COUMADIN) 5 mg ORAL DAILY - WARFARIN magnesium sulfate in water 2 g in sterile water 50 ml 2 g INTRAVENOUS ONCE potassium chloride ER 20 mEq tab(s) (K-DUR, KLOR-CON) 20 mEq ORAL ONCE prochlorperazine 5 mg injection (COMPAZINE) 5 mg INTRAVENOUS q 6 H PRN sulfamethoxazole-trimethoprim 800-160 mg 1 tablet (BACTRIM DS,SEPTRA DS) 1 tablet ORAL - carvedilol 25 mg tab(s) (COREG) 25 mg ORAL BID w MEALS gabapentin 300 mg cap(s) (NEURONTIN) 300 mg ORAL q 8 H predniSONE 10 mg tab(s) (DELTASONE) 10 mg ORAL DAILY 0.9% NaCl 10 mL 10 mL INTRAVENOUS q 12 H 0.9% NaCl 20 mL 20 mL INTRAVENOUS PRN ondansetron (PF) 4 mg injection (ZOFRAN) 4 mg INTRAVENOUS q 6 H PRN warfarin order for discharge OTHER PRN amLODIPine 5 mg tab(s) (NORVASC) 5 mg ORAL DAILY piperacillin-tazobactam 3.375 g in dextrose (iso-osmotic) 50 mL (ZOSYN) 3.375 g INTRAVENOUS q 6 HR cyclophosphamide 200 mg cap(s) (CYTOXAN) 200 mg ORAL DAILY Current Facility-Administered Medications: vancomycin dosing and monitoring per pharmacy OTHER As Directed vancomycin 1.5 g in D5W 250 mL (VANCOCIN) 0.015 g/kg/dose INTRAVENOUS q 12 HR warfarin 5 mg tab(s) (COUMADIN) 5 mg ORAL DAILY - WARFARIN magnesium sulfate in water 2 g in sterile water 50 ml 2 g INTRAVENOUS ONCE potassium chloride ER 20 mEq tab(s) (K-DUR, KLOR-CON) 20 mEq ORAL ONCE prochlorperazine 5 mg injection (COMPAZINE) 5 mg INTRAVENOUS q 6 H PRN sulfamethoxazole-trimethoprim 800-160 mg 1 tablet (BACTRIM DS,SEPTRA DS) 1 tablet ORAL - carvedilol 25 mg tab(s) (COREG) 25 mg ORAL BID w MEALS gabapentin 300 mg cap(s) (NEURONTIN) 300 mg ORAL q 8 H predniSONE 10 mg tab(s) (DELTASONE) 10 mg ORAL DAILY 0.9% NaCl 10 mL 10 mL INTRAVENOUS q 12 H 0.9% NaCl 20 mL 20 mL INTRAVENOUS PRN ondansetron (PF) 4 mg injection (ZOFRAN) 4 mg INTRAVENOUS q 6 H PRN warfarin order for discharge OTHER PRN amLODIPine 5 mg tab(s) (NORVASC) 5 mg ORAL DAILY piperacillin-tazobactam 3.375 g in dextrose (iso-osmotic) 50 mL (ZOSYN) 3.375 g INTRAVENOUS q 6 HR cyclophosphamide 200 mg cap(s) (CYTOXAN) 200 mg ORAL DAILY ALLERGIES Allergen Reactions - Rhubarb Rash, Hives - Heparin Other: See Comments Per patient history of HIT - was on angiomax however then took l fondaparinux for bridging to coumadin. - Iv Contrast [Iodine] Other: See Comments shuts kidneys down per patient - Rituximab Other: See Comments Elevated cardiac enzymes REVIEW OF SYSTEMS: Review as systems as outlined in HPI. All other pertinent systems reviewed and negative. Examination: BP 120/55 Pulse 107 Temp 37.9 ?C (100.3 ?F) (Temporal Artery) Resp 16 Ht 160 cm (5' 3) Wt 92.5 kg (203 lb 14.8 oz) SpO2 94% BMI 36.12 kg/m2 Alert, oriented, appears ill, not in distress HEENT no conjunctival lesions, no thrush NECK supple, no LAD CHEST clear, right samantha catheter entry site benign, left pheresis catheter benign appearing HEART regular, no mRG ABDO soft, nontender, mild distension EXTREM bilateral LE symmetric erythema of lower legs to ankle, blanches to pressure, nontender Laboratory data: WBC 2.07, HCT 25, PLTs 61, ALC 0.18 Microbiology data: 08/25 blood x 2 GPC prs/chains 08/25: stool C diff Imaging data: CXR reviewed, no infiltrates ASSESSMENT: 1. Antiphospholipid syndrome?(on plasmapheresis- PLEX every other week, prednisone?5/10mg) 2. 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 stents and Endoglix AFX endograft at the inferior vena caval bifurcation) on warfarin, extensive thrombectomy at outside hospital for right lower extremity and IVC thrombus. 3. DAH x 5 4. HFpEF due to Rituximab. 5. MRSE BSI attributed to tunneled catheter treated with 6 weeks of iv daptomycin in 02/02. Admitted with fever and diarrhea. Found to have recurrence of C diff and GPCs in pairs/chains from blood cultures. Awaiting Varigene identification of organism (enterococcus vs streptococcus species). Suspected primary line infection despite GI symptoms. LE erythema chronic per patient. RECOMMENDATIONS: 1. Continue Zosyn 2. Can stop vancomycin if Staph not identified by Varigene 3. If GPC chains is identified as VRE by Varigene, would add daptomycin 8 mg/kg/d 4. Start flagyl 500 mg TID for C diff 5. No current urgency to remove line, will determine based on type of organism grown. 6. Repeat blood cultures Signature: Dominique Wright MD August 26, 2017 2:20 p.m. Observed: 08/26/2017 Status: F Source: [place] URINE CULTURE 1:31 PM [facility] REPOSITORY Sp. Request/Comment: - Specimen received in preservative Culture Result - No growth (<1,000 CFU/ml) Performed By: #### URCUL #### [facility] [address] [place], [place] [address] C DIFFICILE PCR Collected: 08/26/2017 Status: F Source: [place] 9:28 AM [facility] REPOSITORY TYPE CODE TESTS RESULT OUT OF RANGE REFERENCE UNITS LAB CDFRES C Abnormal difficile PCR Positive for Alert C. difficile toxin by PCR Result Comment: Called to and read back by: Clarence TORRES ON 08/26/17 AT 1352 TO Asif GASTON Performed By: #### CDPCR #### [facility] [address] [place], [place] [address] CONSULT PROG Observed: 08/26/2017 Status: COMPLETED Source: [place] 8:28 AM [facility] REPOSITORY HNO ID: [id number] Author: Daysi Rodriguez (Fur Comber) Service: Pharmacy Author Type: Pharmacist Type: Consult Progress Note Filed: 08/26/2017 8:29 AM Note Text: PHARMACY VANCOMYCIN DOSING NOTE Patient Name: Paloma Cannon Admission Date: 08/25/2017 Date of Consult: 08/26/2017 Time of Consult: 8:28 AM Indication: Source Unknown; empiric Goal Range: 10-20 mcg/mL RECOMMENDATIONS/PLAN: Pharmacy consulted for vancomycin dosing for Paloma Cannon, a 27 year old, female who is being treated with vancomycin for empiric therapy. 1. Patient is currently ordered Vancomycin 1.5 g IV q12h. Today is day 1 of therapy. 2. No vancomycin level has been drawn for this dosing regimen. 3. The present dose of vancomycin is the recommended dosage for this patient at this time. Continue therapy as prescribed. 4. The next vancomycin level will be ordered for 08/28 unless clinically indicated sooner. (Pharmacy will order) We will follow patient renal function, vancomycin levels and doses with you during the course of therapy. Additional recommendations will appear in follow up notes. If you have any questions, please contact Rome Yu at [phone]. Age: [age] year old Allergies: ALLERGIES Allergen Reactions - Rhubarb Rash, Hives - Heparin Other: See Comments Per patient history of HIT - was on angiomax however then took l fondaparinux for bridging to coumadin. - Iv Contrast [Iodine] Other: See Comments shuts kidneys down per patient - Rituximab Other: See Comments Elevated cardiac enzymes Last 3 Encounter Wt Readings: Date: Wt: 08/25/2017 92.5 kg (203 lb 14.8 oz) 08/21/2017 92.7 kg (204 lb 6.4 oz) 07/11/2017 106.6 kg (235 lb) Last 1 Encounter Ht Readings: Date: Ht: 08/25/2017 160 cm (5' 3) CrCl: ~65 mL/min Temp (24hrs), Av ?C (102.2 ?F), Min:38.3 ?C (101 ?F), Max:39.8 ?C (103.6 ?F) - Current Temp: 38.3 ?C (101 ?F) Labs BUN (mg/dL) Date Value 08/26/2017 11 08/25/2017 11 08/21/2017 11 Creatinine (mg/dL) Date Value 08/26/2017 1.40 (H) 08/25/2017 1.16 (H) 08/21/2017 0.95 WBC (k/uL) Date Value 08/26/2017 2.07 (L) 08/25/2017 2.94 (L) 08/21/2017 3.22 (L) Vancomycin Levels: Vancomycin, result (ug/mL) Date Value 03/19/2017 23.9 (H) 03/17/2017 19.7 DAYSI RODRIGUEZ, CONFERENCE TRANSLATOR PLAN OF CARE Observed: 08/26/2017 Status: COMPLETED Source: [place] 8:09 AM [facility] REPOSITORY O ID: [id number] Author: Lorna Dowling Service: General Internal Medicine Author Type: Resident Type: Plan of Care Filed: 08/26/2017 8:10 AM Note Text: Patient transferred to [facility] Service on August 26, 2017. ? Sub Assembly Team Worker (first call)- Yasmine Russo; Pager [phone]. ? Resident: Lorna Dowling MD, PhD; Pager [phone]. Staff: Kwesi Manriquez MD. PROTIME Collected: 08/26/2017 Status: F Source: [place] 5:01 AM [facility] REPOSITORY TYPE CODE TESTS RESULT OUT OF RANGE REFERENCE UNITS LAB PSEC 9.7-13.0 sec High PT Sec 24.1 LAB INR 0.9-1.3 High PT INR 2.5 Result Comment: Vitamin K Antagonist (VKA) Therapeutic Range: INR 2 to 3 (Target INR of 2.5) Note: For patients treated with VKA drugs, such as warfarin, the [place] [employer] 2012 Guideline recommends a therapeutic INR range of 2 to 3 (target INR of 2.5). This recommendation includes high-risk patients with antiphospholipid syndrome with previous arterial or venous thromboembolism, current-generation mechanical or bioprosthetic aortic heart valve replacement. Note: Patients with mechanical aortic valve replacement and additional risk factors for thromboembolic events (atrial fibrillation, previous thromboembolism, LV dysfunction, hypercoagulable conditions) or an older generation mechanical AVR (i.e., ball in-Cage) or any mechanical MVR should have a INR therapeutic range of 2.5 to 3.5 (target INR of 3). Michael GH, et al. Chest 2012, 141:7S-47S Diogense RA, et al. [facility] 2017, 70: [phone] Performed By: #### PT, BMP, MG1, PHOS, CBCDIF #### [facility] [address] [address] BASIC METABOLIC PANL Collected: 08/26/2017 Status: F Source: [place] 5:01 AM [facility] REPOSITORY TYPE CODE TESTS RESULT OUT OF REFERENCE UNITS RANGE LAB GLU 74-99 mg/dL Low Glucose 73 Result Comment: The [place] [employer] (ADA) provides guidance for cutoff values for fasting glucose and random glucose. The ADA defines fasting as no caloric intake for at least 8 hours. Fas ting plasma glucose results between 100 to 125 mg/dL indicate increased risk for diabetes (prediabetes). Fasting plasma glucose results greater than or equal to 126 mg/dL meet the criteria for diagnosis of diabetes. In the absence of unequivocal hyperglycemia, results should be confirmed by repeat testing. In a patient with classic symptoms of hyperglycemia or hyperglycemic crisis, random plasma glucose results greater than or equal to 200 mg/dL meet the criteria for diagnosis of diabetes. Reference: Standards of Medical Care in Diabetes 2016, [place] [employer]. Diabetes Care. 2016.39(Suppl 1). LAB BUN 7-21 mg/dL BUN 11 LAB CRET 0.58-0.96 mg/dL Creatinine High 1.40 LAB NA 136-144 mmol/L Low Sodium 133 LAB K 3.7-5.1 mmol/L Low Potassium 3.6 LAB CL 97-105 mmol/L Chloride 99 LAB CO2 22-30 mmol/L Low CO2 21 LAB AGAP 9-18 mmol/L Anion Gap 13 LAB CA 8.5-10.2 mg/dL Low Calcium, Total 7.6 LAB GFRAA eGFR- Amer. 54 LAB GFRNAA . eGFR-All Other Races 45 Result Comment: eGFR (Estimated GFR) Units of measure: mL/min/1.73 meters squared eGFR is derived from the reexpressed MDRD Study equation using the following parameters: serum creatinine, age, gender and race. The creatinine assay has been calibrated to be traceable to IDMS. An eGFR <60 mL/min/1.73m2 for >3 months is consistent with chronic kidney disease. Refer to KDOQI guidelines for clinical interpretation. In patients with unstable renal function, e.g. those with acute kidney injury, the eGFR may not accurately reflect actual GFR. Performed By: #### PT, BMP, MG1, PHOS, CBCDIF #### [facility] [address] [address] MAGNESIUM Collected: 08/26/2017 Status: F Source: [place] 5:01 [facility] REPOSITORY TYPE CODE TESTS RESULT OUT OF REFERENCE UNITS RANGE LAB MG 1.7-2.3 mg/dL Low Magnesium 1.6 Performed By: #### PT, BMP, MG1, PHOS, CBCDIF #### [facility] [address] [address] PHOSPHORUS Collected: 08/26/2017 Status: F Source: [place] 5:01 [facility] REPOSITORY TYPE CODE TESTS RESULT OUT OF REFERENCE UNITS RANGE LAB PHOS 2.7-4.8 mg/dL Phosphorus 2.7 Performed By: #### PT, BMP, MG1, PHOS, CBCDIF #### [facility] [address] [address] CBC AND DIFFERENTIAL Collected: 08/26/2017 Status: F Source: [place] 5:01 [facility] REPOSITORY TYPE CODE TESTS RESULT OUT OF REFERENCE UNITS RANGE LAB WBC 3.70-11.00 k/uL Low WBC 2.07 LAB RBC 3.90-5.20 m/uL Low RBC 3.12 LAB HGB 11.5-15.5 g/dL Low Hemoglobin 7.9 LAB HCT 36.0-46.0 % Low Hematocrit 25.7 LAB MCV 80.0-100.0 fL MCV 82.4 LAB MCH 26.0-34.0 pG Low MCH 25.3 LAB MCHC 30.5-36.0 g/dL MCHC 30.7 LAB RDWCV 11.5-15.0 % RDW-CV High 21.2 LAB PLTCT 150-400 k/uL Low Platelet Count 61 Result Comment: Result checked and verified No clot detected. LAB MPV 9.0-12.7 fL MPV <<DO NOT REPORT>> LAB ANEUT % Neut% 76.8 LAB AANEUT 1.45-7.50 k/uL Abs 1.57 Neut LAB ALYMP % 8.7 Lymph% LAB AALYMP 1.00-4.00 k/uL Abs 0.18 Low Lymph LAB AMONO % [place]% 11.1 LAB AAMONO <0.87 k/uL Abs 0.23 [place] LAB AEOS % 2.4 Eosin% LAB AAEOS <0.46 k/uL Abs 0.05 Eosin LAB ABASO % Baso% 1.0 LAB AABASO <0.11 k/uL Abs <0.03 Baso LAB AUNRBC 0 /100 WBC NRBCs 0.0 LAB ABNRBC <0.01 k/uL <0.01 Absolute nRBC LAB DTYP DTYPE Auto Diff Performed By: #### PT, BMP, MG1, PHOS, CBCDIF #### [facility] [address] [id number] URINALYSIS WITH Collected: 08/25/2017 Status: F Source: [facility] 11:09 PM [facility] REPOSITORY TYPE CODE TESTS RESULT OUT OF RANGE REFERENCE UNITS LAB UCOL Yellow Color Abnormal Lisseth Alert LAB [facility] Clear Clarity Abnormal Cloudy Alert LAB UGLUC Negative mg/dL Glucose, Urine Negative LAB UBIL Negative Bilirubin, Urine Negative LAB UKET Negative Ketones, Urine Negative LAB USPG 1.005-1.030 Specific [place], Ur 1.017 LAB UHGB Negative Abnormal Hemoglobin/Blood, 1+ Alert Ur LAB UPH 4.5-8.0 pH 5.0 LAB UPROT Negative mg/dL Protein, Abnormal Urine 100 Alert LAB UUROB Normal Urobilinogen Normal LAB UNITR Negative Nitrites Negative LAB ULKEST Negative Leukest Negative LAB UCOM Comments SEE COMMENT Result Comment: N/A LAB UMCOM Urine SEE Radha Comment COMMENT Result Comment: N/A LAB UWBC 0-5 /HPF WBC 0-5 LAB URBC 0-3 /HPF Abnormal RBC Alert 11-25 LAB UEPI /HPF Epithelial Cells SEE COMMENT Result Comment: Few Squamous Epithelial Cells Performed By: #### UAWMIC #### [facility] [address] [id number] NURSING PROG Observed: 08/25/2017 Status: COMPLETED Source: [place] 10:55 PM [facility] REPOSITORY HNO ID: [id number] Author: Rachael SanchezRn) JEFF Andrade Service: Nursing Author Type: Registered Nurse Type: Nursing Progress Note Filed: 08/26/2017 12:34 AM Note Text: Admission/Transfer Note PATIENT NAME: Paloma Cannon Patient admitted from ED via stretcher in stable condition. Notified Of sepsis care path [facility]. Actions taken: Patient oriented to room, call light function, prescribed activities, Patient rights and Quiet at night. This note was completed by: Rachael Andrade RN HISTORY PHYSICAL Observed: 08/25/2017 Status: COMPLETED Source: [place] 9:45 PM [facility] REPOSITORY HNO ID: [id number] Author: Kwesi Manriquez Service: General Internal Medicine Author Type: Physician Type: HANDP Filed: 08/26/2017 11:15 AM Note Text: INTERNAL MEDICINE HANDP EXAMINATION VIPUL Marie SERVICE DATE: 08/25/2017 SERVICE TIME: 9:46 PM PRIMARY CARE PHYSICIAN: PEYTON ROGERS MD Subjective CHIEF COMPLAINT: Fever, nausea and vomit HISTORY OF PRESENT ILLNESS: Ms. Nelli Cannon is a 27 year old female with PMHx significant for - Antiphospholipid syndrome?(on plasmapheresis- PLEX every other week, prednisone?5/10mg) - c/b PE AND?DVT 09/2013 (s/p b/l iliac v. stents and Endoglix AFX endograft at the inferior vena caval bifurcation) on Warfarin (h/o HIT) extensive thrombectomy at outside hospital for right lower extremity and IVC thrombus - Diffuse alveolar hemorrhage?(x 5 episodes some episodes recently with negative bronchoscopy) - HFpEF2/2 intolerance to Rituximab - CKD. - Gallstone pancreatitis S/P cholecystectomy - 2017 - Catheter related infection completed 6 weeks of dapmycin - C. Diff colitis Who presents with fevers that started this afternoon. She was asymptomatic up until her INR check she went home and afterwards has subjective fevers up to 103 F, she also has episodes of nausea and vomit for 6 times. She noted her skin was very warm to the touch so she decided to come to ED at [facility]. When she presented she was febrile, un to 103.2, tachycardic 111, BP 140/58, on her home O2 requirements which are 2 lt NC, breathing with no distress. Lab work here was significant for pancytopenia WBC 2.9 K, Hb 8.8, Plt 72k, hyponatremia 135, K 3.6, CAPRICE 1.16, Hypocalcemia and normal LFTs. Her lactate was 0.8. Two sets of BCx were drawn. She had a negative flu test. Her CXR was unremarkable. She received 1 lt of NS, one dose of Vancomycin and Zosyn and was transferred to the floor for further management. On arrival, she was in no acute distress, still having subjective fevers, mild ches discomfort from vomiting ans burning with urination. She denied chest pain, cough, SOB, abdominal pain, changes in bowel movements, pain around Samantha cath, rashes, no headaches, no bloody stools PAST MEDICAL HISTORY Diagnosis Date - (HFpEF) heart failure with preserved ejection fraction (HCC) 02/20/2016 HFpEF w last EF 50-55% On Torsemide, coreg, hydralazine and imdur at home No signs of acute exacerbation on admission Plan: -Continue home medications - Anasarca 11/29/2013 - Anemia 03/10/2015 Chronic microcytic anemia. 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 Thrombosis, and Diffuse Alveolar Hemorrhage. On Warfarin and PLEX (Twice Weekly)? Plan: -Warfarin 5mg qday-holding for planned EGD on 01/11 d/t supra therapeutic INR -Cont. PO Prednisone 10mg MWFS and 5mg TTS -Pantoprazole for GI PPx of Above -Apharesis was supposed to be yesterday, will contact plasmapheresis team on recommendations - Antiphospholipid syndrome (HCC) - Catastrophic Antiphospholipid antibody syndrome 11/09/2013 - Cholelithiasis 01/11/2017 Likely cause of recent pancreatitis. Plan: Per general surgery, no acute surgical intervention at this time. Will await results of EGD. If active gastritis, favor outpatient cholecystectomy. If no active gastritis on EGD, plan for cholecystectomy this admission. 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 2 caps - 7 days; 3 caps- 7 days; 4 caps daily thereafter Disp: 120 capsule Rfl: 6 Unknown at Unknown time predniSONE (DELTASONE) 5 mg tablet Take by mouth daily. 20 mg - Jun; 15 mg - Jul; 10 mg - Aug; 5 mg - Sep onwards Disp: 200 tablet Rfl: 4 Unknown at Unknown time sulfamethoxazole-trimethoprim (BACTRIM DS) 800-160 mg per tablet Take 1 tablet by mouth every Monday,Monday,Monday. Disp: 36 tablet Rfl: 3 Unknown at Unknown time carvedilol (COREG) 25 mg tablet Take 1 tablet by mouth twice daily with meals. HOLD FOR SBP <110 AND HR <60 Disp: 60 tablet Rfl: 3 Unknown at Unknown time hydrALAZINE (APRESOLINE) 100 mg tablet Take 1 tablet by mouth every 8 hours. HOLD FOR SBP <110 Disp: 90 tablet Rfl: 0 Unknown at Unknown time amLODIPine (NORVASC) 5 mg tablet Take 1 tablet by mouth once daily. HOLD FOR SBP <120 Disp: 30 tablet Rfl: 3 Unknown at Unknown time torsemide (DEMADEX) 20 mg tablet Take 2 tablets by mouth once daily. Disp: 30 tablet Rfl: 0 Unknown at Unknown time gabapentin (NEURONTIN) 300 mg capsule Please take gabapentin 200 mg three times daily for 3 days.If you tolerate it, increase to 300 mg three times a day for 3 days.If you tolerate it, increase to 600 mg at bedtime and 300 mg daytime for 3 days.If you tolerate it, increase to 600 mg three times a day for 3 days.If you tolerate it, increase to 900 mg at bedtime and 600 mg daytime for 3 days.If you tolerate it, increase to 900 mg three times a day for 3 days. (Patient taking differently: 300 mg three times daily.) Disp: 360 capsule Rfl: 3 Unknown at Unknown time fluticasone (FLONASE) 50 mcg/actuation nasal spray Use 1 [place] in each nostril once daily. Disp: Rfl: Unknown at Unknown time warfarin (COUMADIN) 5 mg tablet take by mouth as directed in the evening to keep INR between 2.0-3.0 (Patient taking differently: Take 5 mg by mouth once daily. take by mouth as directed in the evening to keep INR between 2.0-3.0 Apheresis weeks takes 7.5 mg x3 days and holds 2-3 days prior to apheresis.) Disp: 45 tablet Rfl: 6 Unknown at Unknown time pantoprazole DR (PROTONIX) 40 mg tablet Take 1 tablet by mouth DAILY (6 AM). Disp: 90 tablet Rfl: 1 Unknown at Unknown time isosorbide mononitrate ER (IMDUR) 30 mg 24 hr tablet Take 2 tablets by mouth once daily. Please hold if your blood pressure is less than 120/80. Disp: 90 tablet Rfl: 3 Unknown at Unknown time cetirizine 10 mg tablet Take 1 tablet by mouth once daily. (Patient taking differently: Take 10 mg by mouth twice daily. being taper up on the dosage of medication per order. ) Disp: 30 tablet Rfl: 0 Unknown at Unknown time senna 8.6 mg tab Take 1 tablet by mouth twice daily as needed. Disp: 60 tablet Rfl: 0 Unknown at Unknown time Miscellaneous Medical Supply [facility] 1 package 30 - 40 mmHg pressure panty hose compression stockings. Disp: 1 Each Rfl: 3 Unknown at Unknown time ALLERGIES Allergen Reactions - Rhubarb Rash, Hives - Heparin Other: See Comments Per patient history of HIT - was on angiomax however then took l fondaparinux for bridging to coumadin. - Iv Contrast [Iodine] Other: See Comments shuts kidneys down per patient - Rituximab Other: See Comments Elevated cardiac enzymes COMPLETE REVIEW OF SYSTEMS: As per HPI Objective PHYSICAL EXAM: Patient Vitals for the past 24 hrs: BP Temp Temp src Pulse Resp SpO2 Height Weight 08/25/172054 140/64 38.9 ?C (102.1 ?F) Oral 105 18 100 % 160 cm (5' 3) 92.5 kg (203 lb 14.8 oz) 08/25/172004 147/67 (!) 39.6 ?C (103.2 ?F) Oral (!) 105 20 100 % - - 08/25/171708 144/58 (!) 38.9 ?C (102.1 ?F) Oral (!) 111 20 100 % 160 cm (5' 3) 92.5 kg (204 lb) Body mass index is 36.12 kg/(m2). GENERAL: Alert, no distress, cooperative, Obese, Flushed SKIN: Skin color, texture, turgor normal. No rashes or lesions., Positive findings: Erythema: generalized OROPHARYNX: Lips, mucosa, and tongue are normal.Teeth and gums, normal. Oropharynx normal. NECK: No jugulovenous distention, No carotid bruits, Carotid pulse normal contour, Supple LUNGS: Lungs clear to auscultation. Good diaphragmatic excursion. CARDIAC: Rate: tachycardia Murmur 1:2/6, holosystolic, medium pitched, base ABDOMEN: Abdomen soft, non-tender, BS normal, No masses or organomegaly EXTREMETIES: Extremities normal, no deformities, edema, clubbing or skin discoloration. Good capillary refill., No ulcers NEURO: Alert, oriented X 3, Gait normal. Non-focal. Reflexes normal and symmetric. Sensation grossly intact., Cranial nerves II-XII intact PULSES: 2+ radial, 2+ carotid DATA: Diagnostic tests reviewed for today's visit: Most recent labs and imaging results. Most recent labs Most recent imaging Most recent EKG CBC, Coags, BMP, Mg, Phos Recent Labs 08/25/17 1730 WBC 2.94* HB 8.8* HCT 28.7* PLT 72* INR 2.2* NA 135* K 3.6* CHLOR 100 CO2 22 BUN 11 CREAT 1.16* GLUC 67* CA 8.2* Liver Function, Amylase, AND Lipase Recent Labs 08/25/17 1735 08/25/17 1730 TPROT -- 5.4* ALB -- 3.3* ALT -- <5* AST -- 12* ALKPHOS -- 52 TBILI -- 0.9 LACT 0.8 -- ABGs Assessment/Plan Problem Edema Chronic lower extremity edema Patient states its improved today from previous Plan: - Continue Torsemide Nausea AND Vomiting Had 6 episodes of nausea and vomit QTC 456 Decreased PO intake Plan - Ondansetron PRN - Diet as tolerated - Gentle IVF - Check electrolytes and replete as needed Caprice (Acute Kidney Injury) (Hcc) Rising Cr relative to baseline of 0.9 Secondary to nausea and vomit Plan - Monitor BMP - Strict I/O - Daily weight - Avoid nephrotoxins Aps (Antiphospholipid Syndrome) (Hcc) - This was diagnosed in when she presented catastrophically with PE/DVT needing extensive percutaneous thrombectomy of her IVC and lower extremity veins followed by placement of B/L iliac venous stents and an endograft into her IVC. - She has a history of HIT - Initially give IV Rituximab with no benefits and complications of associated cardiotoxicity - Due to her being triple positive with + lupus anticoagulant, + [id number], and + anti-cardiolipin antibodies, she is on plasmapheresis every other week since and is also on Prednisone 5 mg daily. - Also complicated by diffuse alveolar hemorrhage, as she has had 5 acute episodes of respiratory decline since , three of which were associated with her needing ET intubation and mechanical ventilation, last being in 07/26 - She was started on Cytoxan titrated to 200 mg daily on 06/2017 Plan - She will need Staff physician to sing order to continue home dose Cytoxan - Plan to continue plasmapheresis every other week - Continue Warfarin 7.5 - Continue prednisone - Monitor respiratory function - O2 to sat > 95% - BPH - Monitor Hb - Monitor INR - Avoid Heparin products Ckd (Chronic Kidney Disease) Stage 3, Gfr 30-59 Ml/Min Renal vein thrombosis with additional insult in from contrast induced nephropathy. Per records her baseline is 1.1. Theres documented SCr 0.9 Currently Scr 1.1 Possibly related to nausea, vomit and decreased PO intake. Plan: - Renally dose medication - Gentle hydration overnight - Avoid nephrotoxins. - Strict I/O - Daily weight (Hfpef) Heart Failure With Preserved Ejection Fraction (Hcc) Thought to be Rituximab induced On Carvedilol, Amlodipine, Hydralazine and Isordil at home She did not get BP today SBP 140s No CHF physiology Last ECHO 11/2016: EF 50-55%. +2 TR, AI, MR. - Continue Coreg - Continue Amlodipine - Start Torsemide tomorrow - Patient refusing Heart Healthy diet. Pancytopenia (Hcc) Htn (Hypertension) SBP 140s Has not taken any BP meds today d/t nausea Will hold Hydra and Isordil overnight Plan: - Continue Coreg - Continue Norvas - Hold hydra in the setting of SIRS - Hold Isordil in the setting of SIRS Obesity, Class III, BMI >= 40 (morbid obesity) E66.01 Body mass index is 36.12 kg/(m2). Sirs (Systemic Inflammatory Response Syndrome) (Hcc) She has low WBC, she is tachycardic, she is febrile. She is not in respiratory distress Possible sources include line related infection, UTI in the setting of dysuria Two sets of BCx sent in ED Lactate is normal No lymphadenopathy Plan: - Continue Zosyn - Vancomycin at lower rate since she has Hx of red man syndrome - Follow Bcx - Follow UA and microscopy - Culture from lines. - ESR, CRP Red Man Syndrome History of poor Vancomycin tolerance Currently she is presents with generalized erythema Plan: - Vancomycin at slower rate History of HIT (heparin-induced thrombocytopenia) ([facility]) She is on coumadin for this reason She has pancytopenia now, possibly related to Cytoxan Plan: - Avoid heparin products - Daily CBC Recurrent Deep Vein Thrombosis (Dvt) (Hcc) Complicated by PE AND?DVT 09/2013 (s/p b/l iliac v. stents and Endoglix AFX endograft at the inferior vena caval bifurcation) on Warfarin (h/o HIT) extensive thrombectomy at outside hospital for right lower extremity and IVC thrombus. Plan: - Continue Warfarin 7.5 - Monitor INR SIGNATURE: Jcarlos Estrada MD PATIENT NAME: Paloma Cannon DATE: August 25, 2017 TIME: 9:46 PM PAGER/CONTACT #: [phone] [facility] Addendum Please refer to excellent note by Dr Estrada above for futher details. CHIEF COMPLAINT: Sepsis HPI 27 year old F with h/o: - catastrophic anti-phospholipid antibody syndrome diagnosed in 2013 when she presented with PE/DVT needing extensive percutaneous thrombectomy of her IVC and lower extremity veins followed by placement of B/L iliac venous stents and an endograft into her IVC (triple positive with + lupus anticoagulant, + [id number], and + anti-cardiolipin antibodies, she is on plasmapheresis every other week since and is also on Prednisone 5 mg daily-now on chronic anticoagulation with Warfarin) - diffuse alveolar hemorrhage ( on Cytoxan 200 mg daily) - RONNIE - HFpEF - HTN - chronic kidney disease (but last Cr was 0.95 on 08/21/2017) She presented for fevers upto 103, chills and generalized fatigue which started in morning. No other s/s of cough, cold. Her last plasmapheresis was on 08/28. She has R and L subclavian lines which are used for this. In 03/2017 there was a concern for MALICK line related sepsis when she was d/c on COPAT with Daptomycin. She was also complaining of some burning with urination. No other s/s of nocturia, hematuria, frequency, urgency. When she presented to the ED, VS were consistent with Tm 102.1F, HR 111, BP 144/58. Blood cultures were drawn and she was given V and Z and transferred to [facility] for further management. PHYSICAL EXAM Blood pressure 140/64, pulse 105, temperature 38.9 ?C (102.1 ?F), temperature source Oral, resp. rate 18, height 160 cm (5' 3), weight 92.5 kg (203 lb 14.8 oz), SpO2 100 %. General: In no acute distress. AO X 3 Lungs: CTAB Heart:: RRR. No murmurs Abdomen: Soft, nt, nd. No hepatomegaly Extremities: +3 edema . No lacerations Neurological: Sensation and motor strength intact in BLUE and BLLE. Cranial Nerves 1-12 intact ASSESSMENT AND PLAN # Severe sepsis - h/o APLA syndrome and on immunosuppression and PLEX q 2 weeks - has been using R and L subclavian lines for the same - presented with 1 day h/o fevers upto 103, chills and generalized fatigue which started in morning. No other s/s of cough, cold. No sick contacts. - In 03/2017 there was a concern for MALICK line related sepsis when she was d/c on COPAT with Daptomycin. The plan was to preserve the line because she is plasmapheresis dependent. Plans: - blood and urine cultures - line cultures - Vancomycin and Zosyn through the subclavian lines - if the line culture are positive, will have to consider removal # APLA - catastrophic anti-phospholipid antibody syndrome diagnosed in 2013 when she presented with PE/DVT needing extensive percutaneous thrombectomy of her IVC and lower extremity veins followed by placement of B/L iliac venous stents and an endograft into her IVC (triple positive with + lupus anticoagulant, + [id number], and + anti-cardiolipin antibodies, - She is on plasmapheresis every other week since '14 and is also on Prednisone 5 mg daily - on chronic anticoagulation with Warfarin and she has RONNIE - also c/b diffuse alveolar hemorrhage ( on Cytoxan 200 mg daily) - continue home dose of warfarin and immunosuppression Component Latest Ref Rng AND Units 06/27/2016 07/25/2016 08/22/2016 09/19/2016 10/17/2016 02/21/2017 04/07/2017 05/08/2017 05/24/2017 05/30/2017 06/27/2017 07/24/2017 08/21/2017 Beta 2 Glycoprotein, IgG <20 SGU 93 (H) 63 (H) 110 (H) 79 (H) 132 (H) >150 (H) >150 (H) >150 (H) >150 (H) >150 (H) >150 (H) >150 (H) 140 (H) Beta 2 Glycoprotein, IgM <20 SMU <9 <9 <9 <9 <9 24 (H) 12 11 <9 <9 12 12 <9 Cardiolipin Ab, IgG 0 - 9 GPL 65 (H) 59 (H) 84 (H) 55 (H) 83 (H) 121 (H) 125 (H) 120 (H) 107 (H) 104 (H) 113 (H) 115 (H) 51 (H) Cardiolipin Ab, IgM 0 - 11 MPL 9 9 12 (H) 11 12 (H) 32 (H) 23 (H) 15 (H) 12 (H) 11 9 15 (H) <9 Cardiolipin Ab, IgA 0 - 11 APL 17 (H) <9 9 <9 10 10 9 <9 <9 <9 <9 <9 <9 Platelet Neut Negative Positive (A) Positive (A) Positive (A) Positive (A) Positive (A) Positive (A) Positive (A) Positive (A) Positive (A) Positive (A) DRVVT Screen 32.7 - 46.7 sec 78.0 (H) 97.8 (H) 99.7 (H) 111.4 (H) 85.0 (H) 80.0 (H) 95.0 (H) 110.4 (H) 111.9 (H) 90.5 (H) DRVVT Confirm Ratio <1.21 1.37 (H) 1.65 (H) 1.77 (H) 1.84 (H) 1.80 (H) 1.64 (H) 1.87 (H) 2.03 (H) 1.94 (H) 1.98 (H) DRVVT 1:1 Mix 32.7 - 46.7 sec 60.2 (H) 70.8 (H) 66.9 (H) 68.2 (H) 66.0 (H) 68.8 (H) 73.5 (H) 71.4 (H) 75.7 (H) 61.7 (H) Hex Phase Screen 48.9 - 70.2 sec 72.3 (H) 84.7 (H) 85.8 (H) 85.0 (H) 94.7 (H) 82.5 (H) 94.7 (H) 94.8 (H) 91.6 (H) 61.2 Hex Phase Confirm 45.1 - 64.1 sec 63.9 68.9 (H) 69.4 (H) 68.4 (H) 76.1 (H) 69.1 (H) 77.3 (H) 77.8 (H) 72.2 (H) 50.0 Hex Phase Delta <9.0 delta sec 8.4 15.8 (H) 16.4 (H) 16.6 (H) 18.6 (H) 13.4 (H) 17.4 (H) 17.0 (H) 19.5 (H) 11.2 (H) APTT Screen 24.4 - 33.4 sec 43.6 (H) 54.1 (H) 53.0 (H) 65.1 (H) 57.1 (H) 50.3 (H) 52.3 (H) 61.1 (H) 56.4 (H) 40.2 (H) Immediate PTT 1:1 Mix <33.5 sec 32.7 36.3 (H) 35.6 (H) 35.3 (H) 39.5 (H) 38.2 (H) 38.2 (H) 44.9 (H) 39.9 (H) 32.4 Incubated PTT 1:1 Mix <37.3 sec 35.3 40.2 (H) 39.1 (H) 37.3 (H) 42.4 (H) 44.0 (H) 41.4 (H) 47.9 (H) 47.0 (H) 36.1 Thrombin Time <18.6 sec 14.8 15.2 16.7 16.3 16.9 14.5 15.5 15.8 14.7 15.0 Interpretation(Lupus Anticoagulant) (NOTE) (NOTE) (NOTE) (NOTE) (NOTE) (NOTE) (NOTE) (NOTE) (NOTE) (NOTE) PT Sec 9.7 - 13.0 sec 24.5 (H) 26.0 (H) 25.9 (H) 33.2 (H) 17.8 (H) 18.8 (H) 23.8 (H) 27.7 (H) 28.7 (H) 15.3 (H) PT INR 0.9 - 1.3 2.2 (H) 2.4 (H) 2.4 (H) 3.0 (H) 1.8 (H) 1.9 (H) 2.4 (H) 2.9 (H) 3.0 (H) 1.5 (H) APTT 23.0 - 32.4 sec 39.4 (H) 41.7 (H) 43.7 (H) 50.1 (H) 38.8 (H) 35.4 (H) 37.0 (H) 43.3 (H) 41.4 (H) 31.9 # HIT -on therapeutic warfarin # CAPRICE on CKD Component 12/22/2016 12/23/2016 12/24/2016 12/25/2016 12/26/2016 12/26/2016 12/27/2016 12/28/2016 01/01/2017 01/02/2017 01/03/2017 01/04/2017 01/07/2017 01/08/2017 01/09/2017 01/10/2017 01/11/2017 01/12/2017 2017 01/14/2017 01/15/2017 01/16/2017 01/16/2017 01/17/2017 01/18/2017 01/19/2017 01/20/2017 01/21/2017 01/22/2017 01/23/2017 01/23/2017 01/31/2017 01/31/2017 02/02/2017 02/03/2017 02/04/2017 02/05/2017 02/06/2017 02/07/2017 02/08/2017 02/09/2017 02/10/2017 02/21/2017 03/09/2017 03/09/2017 03/10/2017 03/11/2017 03/13/2017 03/15/2017 03/16/2017 03/17/201703/18/2017 03/19/2017 03/20/2017 03/21/2017 03/22/2017 03/23/2017 03/24/2017 03/27/2017 04/07/2017 04/10/2017 04/17/2017 04/24/2017 04/26/2017 04/27/2017 04/28/2017 05/08/2017 05/24/2017 05/30/2017 06/07/2017 06/09/2017 06/10/2017 06/12/2017 06/20/2017 06/27/2017 07/11/2017 07/24/2017 08/07/2017 08/21/2017 08/25/2017 08/26/2017 6:04 AM 2:00 PM 4:00 AM 6:23 PM 5:13 AM 5:57 AM 8:36 AM 11:55 PM 7:02 AM 11:55 PM Creatinine 3.17 (H) 2.76 (H) 2.68 (H) 2.09 (H) 1.76 (H) 1.63 (H) 1.64 (H) 1.72 (H) 1.51 (H) 1.84 (H) 2.00 (H) 2.18 (H) 1.69 (H) 1.68 (H) 2.03 (H) 2.29 (H) 2.26 (H) 2.79 (H) 2.73 (H) 2.40 (H) 1.99 (H) 1.83 (H) 1.76 (H) 1.75 (H) 2.14 (H) 2.01 (H) 1.72 (H) 1.76 (H) 1.54 (H) 1.65 (H) 1.64 (H) 1.28 (H) 1.72 (H) 2.05 (H) 2.03 (H) 1.84 (H) 1.77 (H) 1.62 (H) 1.51 (H) 1.41 (H) 1.28 (H) 1.39 (H) 1.13 (H) 1.08 (H) 1.48 (H) 1.97 (H) 2.11 (H) 2.00 (H) 2.84 (H) 2.78 (H) 2.59 (H) 3.02 (H) 3.16 (H) 2.93 (H) 2.94 (H) 2.88 (H) 2.63 (H) 2.75 (H) 2.14 (A) 1.63 (H) 1.29 (A) 1.26 (A) 0.91 1.09 (H) 1.03 (H) 1.34 (H) 0.84 0.71 0.76 0.97 (H) 1.45 (H) 1.65 (H) 1.99 (H) 0.95 0.95 0.97 (H) 0.86 1.11 (H) 0.95 1.16 (H) 1.40 (H) -Has had h/o chronic renal vein thrombosis and contrast induced injury in 2013. -holding Torsemide for today -received IV fluids ~1.5L -will monitor for now and if worsens, will have to reconsider Vancomycin with prior h/o Vancomycin induced nephropathy # Pancytopenia Component 07/24/2017 08/07/2017 08/21/2017 08/25/2017 08/26/2017 WBC 6.70 5.65 3.22 (L) 2.94 (L) 2.07 (L) RBC 3.65 (L) 3.80 (L) 3.50 (L) 3.41 (L) 3.12 (L) Hemoglobin 9.0 (L) 9.4 (L) 8.8 (L) 8.8 (L) 7.9 (L) Hematocrit 29.1 (L) 30.6 (L) 28.0 (L) 28.7 (L) 25.7 (L) MCV 79.7 (L) 80.5 80.0 84.2 82.4 MCH 24.7 (L) 24.7 (L) 25.1 (L) 25.8 (L) 25.3 (L) MCHC 30.9 30.7 31.4 30.7 30.7 RDW-CV 19.8 (H) 19.0 (H) 20.0 (H) 21.0 (H) 21.2 (H) Platelet Count 64 (L) 143 (L) 97 (L) 72 (L) 61 (L) Neut% 84.9 89.6 80.8 86.4 76.8 Abs Neut (ANC) 5.69 5.06 2.60 2.52 1.57 Lymph% 5.1 2.5 6.2 4.4 8.7 Abs Lymph 0.34 (L) 0.14 (L) 0.20 (L) 0.13 (L) 0.18 (L) [place]% 4.6 6.2 8.7 6.5 11.1 Abs [place] 0.31 0.35 0.28 0.19 0.23 Eosin% 5.1 1.2 3.1 1.7 2.4 Abs Eosin 0.34 0.07 0.10 0.05 0.05 Baso% 0.3 0.5 1.2 1.0 1.0 Abs Baso <0.03 0.03 0.04 0.03 <0.03 - will order retic count - CBC with Staff review - could be in the setting of sepsis - could also be from Cytoxan but this seems to be new from 07/2017 and she has been on Cytoxan since 06/2017. Jose Manuel Serrato MD Internal Medicine PGY-3 Pager [phone] August 25, 2017 11:[address] FRED STONE, [facility] H[facility]PITAL STAFF PHYSICIAN NOTE OF PERSONAL INVOLVEMENT IN CARE: Patient seen with overnight admitting team and [place] team D. I have reviewed the history and physical examination obtained and documented by the resident and I personally participated in the fernandes components. I have discussed the case and management of the patient's care. The following comments revise or confirm relevant fernandes components of the note. 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 stents and Endoglix AFX endograft at the inferior vena caval bifurcation) ; renal vein thrombosis; on Cytoxan; coumadin; h/o HIT; on iv Plasmapheresis every other week (intolerance to Ritiximab); history of Diffuse alveolar hemorrhage x5 episodes; CKD and HfPEF admitted with high grade fevers; dry heaving and watery diarrhea. Per review of records; cytoxan was started in Jun 2017; her counts were normal till end of Jul 2017. Initial workup showed relative Pancytopenia which is rather new; normal CXR; Blood cultures: 1/2 GPCs in pairs and chains from central line. INR 2.2 at admission. No erythema noted around her R subclavian catheter. CXR reviewed. Peripheral smear and Retic count. She was initiated on iv Vanco and Zosyn and iv fluids. Repeat blood cultures; TTE; agree with ID consult. Check CMV; Fungal battery; stool for C diff. Would hold torsemide day to day and reassess while she has ongoing losses; adjust Vanco and Zosyn with serum creatinine. Care Coordination The majority of the visit was spent counseling and/or coordinating care for the patient. Bhhw-up-qeul time was 25 minutes. Kwesi Manriquez MD Beeper Number: [phone]. Date of Service: August 26, 2017 Time of Service: 11.14 AM. PT ED Observed: 08/25/2017 Status: COMPLETED Source: [place] 8:54 PM [facility] REPOSITORY HNO ID: [id number] Author: Rita Provider Service: (none) Author Type: Physician Type: Patient Education Filed: 08/25/2017 8:54 PM Note Text: [facility] Patient Education Report --------- Name: PALOMA MARTINEZ Date: 08/25/2017 Time: 8:53 PM Patient Ordered Video: Inpatient Falls from [id number] via phone number [phone] at 8:53 PM ED NOTE Observed: 08/25/2017 Status: COMPLETED Source: [place] 8:05 PM [facility] REPOSITORY HNO ID: [id number] Author: Aubree SanchezRn) JEFF Flanagan Service: Emergency Medicine Author Type: Registered Nurse Type: ED Notes Filed: 08/25/2017 8:09 PM Note Text: VSS. Transported to [facility] via cart escorted by medic. Remains stable. Spouse at bedside. Belongings at side. 2nd liter of IVF continue to infuse as ordered; see MAR. IV antibiotics hung and infusing as ordered; see MAR. ED NOTE Observed: 08/25/2017 Status: COMPLETED Source: [place] 7:56 PM [facility] REPOSITORY HNO ID: [id number] Author: Aubree (Rn) JEFF Flanagan Service: Emergency Medicine Author Type: Registered Nurse Type: ED Notes Filed: 08/25/2017 7:57 PM Note Text: Report to Iliana on [id number]; bed ready. Awaiting transport. PROGRESS Observed: 08/25/2017 Status: COMPLETED Source: [place] 6:35 PM [facility] REPOSITORY HNO ID: [id number] Author: Sue SanchezRt) Olvin Service: Radiology Author Type: Title Clerk Automobile Type: Progress Notes Filed: 08/25/2017 6:35 PM Note Text: Radiology Service Progress Note PATIENT NAME: Paloma Cannon DATE OF SERVICE: August 25, 2017 TIME: 6:35 PM PATIENT IDENTITY VERIFICATION COMPLETED USING TWO (2) METHODS: Patient confirmed name verbally and ID band matches.. PATIENT GENDER DATA: Female. status: : No status: N/A PATIENT RELEVANT IMPLANT DATA REVIEWED: Not Applicable RADIOLOGY DEPARTMENT: General X-ray: Exam(s) Completed: Chest X-Ray PERIPHERAL IV DATA: Not applicable SIGNED BY: RT Pawan August 25, 2017 6:35 PM XR CHEST 1V FRONTAL Observed: 08/25/2017 Status: F Source: [facility] 6:34 PM [facility] REPOSITORY * * *Final Report* * * DATE OF EXAM: Aug 25 2017 6:34PM EGX [id number] - XR CHEST 1V FRONTAL PORT / PROCEDURE REASON: Fever * * * * Physician Interpretation * * * * EXAMINATION: XR CHEST 1V FRONTAL PORT PATIENT/TECHNOLOGIST PROVIDED HISTORY: fever on chemo: pt has antiphospholid antibody syndrome CLINICAL INFORMATION: Fever TECHNIQUE: Single AP portable image of the chest RESULT: COMPARISON: 06/07/2017. DEVICES: A right subclavian catheter is in satisfactory position, terminating at the distal SVC. Left subclavian double lumen catheter terminates in the right atrium. HEART/MEDIASTINUM: The heart is mildly to moderately enlarged, not significantly changed. There is marked enlargement of the azygos vein similar to multiple prior examinations, including chest CT dated 12/19/2016. ERIC/PULMONARY VASCULATURE: There is improving interstitial pulmonary edema. PULMONARY PARENCHYMA: The lungs are clear of focal disease. PLEURA: There is no evidence of pneumothorax or effusion. IMPRESSION: NO NEW CARDIOPULMONARY FINDINGS. IMPROVEMENT IN PULMONARY EDEMA. Practice Support Specialist: PSCB Transcribe Date/Time: Aug 25 2017 6:49P Dictated by : MARK LARA MD This examination was interpreted and the report reviewed and electronically signed by: MARK LARA MD on Aug 25 2017 6:55PM EST [id number] ED NOTE Observed: 08/25/2017 Status: COMPLETED Source: [place] 6:22 PM [facility] REPOSITORY HNO ID: [id number] Author: Marissa (Rn) JEFF Cormier Service: Emergency Medicine Author Type: Registered Nurse Type: ED Notes Filed: 08/25/2017 6:32 PM Note Text: at bedside. Neutropenic precautions maintained. C/o fever 103.2 starting around 1:30pm. Pt also had chills, Rigor shaking, then vomiting, no diarrhea. Pt had vertigo with the vomiting. Pt has a little sternal pain from vomiting. 10. Pt has neuropathy pain under her R knee and both side of her groin. Pt has 2 stents, each groin with fistulas. Pt is on coumadin now. Coumadin level =1.5. Pt has hx of aveoliar hemorrhaging caused by antiphospholipid antibody that was dx 2013. Surgery was to remove the cloths in her legs. Pt does have a filter. Pt has a dry cough, usually in the morning. Pt does cough up blood due to her coughing. ED NOTE Observed: 08/25/2017 Status: COMPLETED Source: [place] 6:21 PM [facility] REPOSITORY HNO ID: [id number] Author: Marissa (Rn) JEFF Cormier Service: Emergency Medicine Author Type: Registered Nurse Type: ED Notes Filed: 08/25/2017 6:22 PM Note Text: Flu swab obtained and sent to POC IV fluid bolus infusing 1st liter up. ED PROV NOTE Observed: 08/25/2017 Status: COMPLETED Source: [place] 5:56 PM [facility] REPOSITORY HNO ID: [id number] Author: Ishaan Byrne MD Service: Emergency Medicine Author Type: Physician Type: ED Provider Notes Filed: 08/26/2017 9:23 PM Note Text: ED Provider Note Patient Name: Paloma Cannon SERVICE DATE: 08/25/17 History Patient presents with: fever on chemo: pt has antiphospholid antibody syndrome and is receiving chemo. last chemo was yesterday (pt takes chemo every day). pt noticed she had fever today at home it was 103.2f. 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 This morning, patient woke up with the chills. Temp was 103.2. When she got up, she had an episode of dizziness and nausea, vomiting. No further episodes of vomiting. Denies other systemic localizing symptoms. Has baseline leg pain and numbness from prior surgeries. History provided by: Patient and spouse PAST MEDICAL HISTORY Diagnosis Date - (HFpEF) heart failure with preserved ejection fraction (HCC) 02/20/2016 HFpEF w last EF 50-55% On Torsemide, coreg, hydralazine and imdur at home No signs of acute exacerbation on admission Plan: -Continue home medications - Anasarca 11/29/2013 - Anemia 03/10/2015 Chronic microcytic anemia. 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 Thrombosis, and Diffuse Alveolar Hemorrhage. On Warfarin and PLEX (Twice Weekly)? Plan: -Warfarin 5mg qday-holding for planned EGD on 01/11 d/t supra therapeutic INR -Cont. PO Prednisone 10mg MWFS and 5mg TTS -Pantoprazole for GI PPx of Above -Apharesis was supposed to be yesterday, will contact plasmapheresis team on recommendations - Antiphospholipid syndrome (HCC) - Catastrophic Antiphospholipid antibody syndrome 11/09/2013 - Cholelithiasis 01/11/2017 Likely cause of recent pancreatitis. Plan: Per general surgery, no acute surgical intervention at this time. Will await results of EGD. If active gastritis, favor outpatient cholecystectomy. If no active gastritis on EGD, plan for cholecystectomy this admission. 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 - PAST SURGICAL HISTORY OF Adenoidectomy - PICC LINE INSERT/CONSULT 11/29/2013 - PICC LINE INSERT/CONSULT 03/10/2015 - PICC LINE INSERT/CONSULT 02/20/2016 FAMILY HISTORY Problem Relation Age of Onset - Breast Cancer Mother spine BRCA neg - Ovarian cyst [OTHER] Mother - ovarian cyst [OTHER] Sister - Thyroid No Family History Social History Social History Main Topics - Smoking status: Never Smoker - Smokeless tobacco: Never Used - Alcohol use No - Drug use: No - Sexual activity: Not Currently ALLERGIES Allergen Reactions - Rhubarb Rash, Hives - Heparin Other: See Comments Per patient history of HIT - was on angiomax however then took l fondaparinux for bridging to coumadin. - Iv Contrast [Iodine] Other: See Comments shuts kidneys down per patient - Rituximab Other: See Comments Elevated cardiac enzymes Review of Systems Constitutional: Positive for chills, diaphoresis and fever. HENT: Negative for congestion and rhinorrhea. Eyes: Negative for photophobia. Respiratory: Negative for cough, chest tightness and shortness of breath. Cardiovascular: Positive for leg swelling (chronic, improved). Negative for chest pain and palpitations. Gastrointestinal: Positive for nausea. Negative for abdominal pain, blood in stool, constipation, diarrhea and vomiting. Genitourinary: Negative for dysuria. Musculoskeletal: Negative for arthralgias and myalgias. Neurological: Negative for headaches. Psychiatric/Behavioral: Negative for confusion. Physical Exam BP 144/58 Pulse 111 Temp (Src) 102.1 (Oral) Resp 20 Ht 5' 3 (1.60m) Wt 204 lb (92.5kg) SpO2 100% BMI 36.15 kg/(m2). Physical Exam Constitutional: She is oriented to person, place, and time. She appears well-developed and well-nourished. HENT: Head: Normocephalic and atraumatic. Eyes: Conjunctivae and EOM are normal. Neck: Normal range of motion. Cardiovascular: Normal rate and regular rhythm. Murmur (systolic, LUSB) heard. Pulmonary/Chest: Effort normal and breath sounds normal. She has no wheezes. She has no rales. apharesis line on L and samantha on R anterior chest without erythema, swelling or tenderness Abdominal: Soft. Bowel sounds are normal. She exhibits no distension. There is no tenderness. Musculoskeletal: Normal range of motion. She exhibits edema (1+ tense pitting edema up to thighs bilaterally). Neurological: She is alert and oriented to person, place, and time. Skin: Skin is warm and dry. Psychiatric: She has a normal mood and affect. Diagnostic Testing ED Labs Ordered and Reviewed CBC + DIFF - Abnormal; Notable for the following: Result Value Ref Range WBC 2.94 (*) 3.70 - 11.00 k/uL RBC 3.41 (*) 3.90 - 5.20 m/uL Hemoglobin 8.8 (*) 11.5 - 15.5 g/dL Hematocrit 28.7 (*) 36.0 - 46.0 % MCH 25.8 (*) 26.0 - 34.0 pG RDW-CV 21.0 (*) 11.5 - 15.0 % Platelet Count 72 (*) 150 - 400 k/uL Abs Lymph 0.13 (*) 1.00 - 4.00 k/uL All other components within normal limits COMP METABOLIC PANEL - Abnormal; Notable for the following: Protein, Total 5.4 (*) 6.3 - 8.0 g/dL Albumin 3.3 (*) 3.9 - 4.9 g/dL Calcium 8.2 (*) 8.5 - 10.2 mg/dL AST 12 (*) 13 - 35 U/L Glucose 67 (*) 74 - 99 mg/dL Creatinine 1.16 (*) 0.58 - 0.96 mg/dL Sodium 135 (*) 136 - 144 mmol/L Potassium 3.6 (*) 3.7 - 5.1 mmol/L ALT <5 (*) 7 - 38 U/L All other components within normal limits FLU A/B B/O - Normal LACTATE - ED (POC) RAPID PCR ASSAY FOR FLU/RSV ED BG VENOUS/LAB PANELS PROTHROMBIN TIME/PT URINALYSIS WITH MICROSCOPIC BLOOD CULTURE DRAW BLOOD CULTURE DRAW URINE CULTURE Procedures Medical Decision Making / ED Course ED Course This is a 27 yo F with HIT, CKD, APS c/b DAH, 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 CBC with abs neutrophil count 2.5k, not neutropenic. Flu is negative. Due to tachycardia and fever meeting SIRS criteria and indwelling catheters, broad spectrum antibiotics were administered after blood cultures (one from samantha, one from peripheral). Lactate was normal. Patient will be transferred to R[facility] medicine service for further workup of febrile illness. Encounter Diagnosis ICD-10-CM 1. Fever, unspecified fever cause R50.9 Plan The Patient was ADMITTED TO: Regular nursing floor. Condition at time of disposition: stable SIGNATURE: Slava Taveras MD Attending Note I evaluated the patient and personally participated in the fernandes components. I agree with the resident's findings and plan as documented and have discussed the case and management of the patient's care with the resident. 27 yo female on immunosuppressive therapy presents with persistent fever. No evidence of severe sepsis in the ED. IV antibiotics given for possible line sepsis. Admitted in stable condition. Signature: Ishaan Byrne MD Date: 08/26/2017 Time: 9:18 PM Ishaan Byrne MD [id number] ED NOTE Observed: 08/25/2017 Status: COMPLETED Source: [place] 5:48 PM [facility] REPOSITORY HNO ID: [id number] Author: Marissa Sauer) JEFF Cormier Service: Emergency Medicine Author Type: Registered Nurse Type: ED Notes Filed: 08/25/2017 5:48 PM Note Text: X ray at bedside to do port chest film ED NOTE Observed: 08/25/2017 Status: COMPLETED Source: [place] 5:46 PM [facility] REPOSITORY HNO ID: [id number] Author: Marissa Sauer) JEFF Cormier Service: Emergency Medicine Author Type: Registered Nurse Type: ED Notes Filed: 08/25/2017 5:47 PM Note Text: Assumed care of the patient. Triage note reviewed. Labs obtained, including blood cultures and sent to the lab. Update report taken from Charge nurse. ED NOTE Observed: 08/25/2017 Status: COMPLETED Source: [place] 5:46 PM [facility] REPOSITORY HNO ID: [id number] Author: Zhou SanchezMedicOsmin Stafford Service: Emergency Medicine Author Type: Air Hammer Stripper and Title Clerk Automobile Type: ED Notes Filed: 08/25/2017 5:46 PM Note Text: Labs including Lactic acid drawn and sent ED NOTE Observed: 08/25/2017 Status: COMPLETED Source: [place] 5:40 PM [facility] REPOSITORY HNO ID: [id number] Author: Mari Matt RN Service: Emergency Medicine Author Type: Registered Nurse Type: ED Notes Filed: 08/25/2017 5:46 PM Note Text: Blood cultures 2nd set drawn from R chest central line and sent. Observed: 08/25/2017 Status: F Source: [place] BLOOD CULTURE 5:40 PM [facility] REPOSITORY Culture Result - Enterococcus faecalis Cephalosporins, clindamycin, and TMP-SMX are not effective for the treatment of enterococcal infections. --> ABNORMAL ALERT Refer to specimen collected on --&gt ; ABNORMAL ALERT 1730 ([id number]) --> ABNORMAL ALERT Staphylococcus epidermidis --> ABNORMAL ALERT (NOTE) --> ABNORMAL ALERT Positive result called to and read back by: Briana vargas G81 --> ABNORMAL ALERT 08/26/17 08Nitza Munoz --> ABNORMAL ALERT Preliminary Gram stain. Gram positive cocci in clusters(*) Called to --> ABNORMAL ALERT and read back by: Briana Torres 08/27/2017 1410 to Rufnio Martell. --> ABNORMAL ALERT ORGANISM: Staphylococcus epidermidis METHOD: Minimum inhibitory concentration(Vitek) Antibiotic Interp RADHA Status Erythromycin RESISTANT >=8 F Clindamycin RESISTANT >=4 F Tetracycline RESISTANT >=16 F Vancomycin SUSCEPTIBLE 1 F Oxacillin RESISTANT >=4 F Oxacillin resistant staphylococci are resistant to all beta lactam antibiotics (except new cephalosporins with anti MRSA activity). Trimeth sulfameth RESISTANT >=320 F Gentamicin SUSCEPTIBLE <=0.5 F Rifampin SUSCEPTIBLE <=0.5 F Rifampin should not be used alone for antimicrobial therapy. Levofloxacin RESISTANT >=8 F Doxycycline SUSCEPTIBLE 2 F Performed By: #### BLCUL #### [facility] [address], [place] [address] ED NOTE Observed: 08/25/2017 Status: COMPLETED Source: [place] 5:38 PM [facility] REPOSITORY HNO ID: [id number] Author: Mari (Rn) JEFF Matt Service: Emergency Medicine Author Type: Registered Nurse Type: ED Notes Filed: 08/25/2017 5:46 PM Note Text: Labs including lactate drawn and sent ED NOTE Observed: 08/25/2017 Status: COMPLETED Source: [place] 5:30 PM [facility] REPOSITORY HNO ID: [id number] Author: Zhou (Medic) Osmin Medrano Service: Emergency Medicine Author Type: Air Hammer [employer]pper [employer] Clerk [employer] Type: ED Notes Filed: 08/25/2017 5:45 PM Note Text: Blood cultures drawn and sent.BC#1 RH via straight stick CBC AND DIFFERENTIAL Collected: 08/25/2017 Status: F Source: [place] 5:30 PM [facility] REPOSITORY TYPE CODE TESTS RESULT OUT OF REFERENCE UNITS RANGE LAB WBC 3.70-11.00 k/uL Low WBC 2.94 LAB RBC 3.90-5.20 m/uL Low RBC 3.41 LAB HGB 11.5-15.5 g/dL Low Hemoglobin 8.8 LAB HCT 36.0-46.0 % Low Hematocrit 28.7 LAB MCV 80.0-100.0 fL MCV 84.2 LAB MCH 26.0-34.0 pG Low MCH 25.8 LAB MCHC 30.5-36.0 g/dL MCHC 30.7 LAB RDWCV 11.5-15.0 % RDW-CV High 21.0 LAB PLTCT 150-400 k/uL Low Platelet Count 72 Result Comment: Result checked and verified No clot detected. LAB MPV 9.0-12.7 fL MPV <<DO NOT REPORT>> LAB ANEUT % Neut% 86.4 LAB AANEUT 1.45-7.50 k/uL Abs 2.52 Neut LAB ALYMP % 4.4 Lymph% LAB AALYMP 1.00-4.00 k/uL Abs 0.13 Low Lymph LAB AMONO % [place]% 6.5 LAB AAMONO <0.87 k/uL Abs 0.19 [place] LAB AEOS % 1.7 Eosin% LAB AAEOS <0.46 k/uL Abs 0.05 Eosin LAB ABASO % Baso% 1.0 LAB AABASO <0.11 k/uL Abs 0.03 Baso LAB AUNRBC 0 /100 WBC NRBCs 0.0 LAB ABNRBC <0.01 k/uL <0.01 Absolute nRBC LAB DTYP DTYPE Auto Diff Performed By: #### CBCDIF, CMP #### [facility] [address] [place] [address] COMP METABOLIC PANEL Collected: 08/25/2017 Status: F Source: [place] 5:30 PM [facility] REPOSITORY TYPE CODE TESTS RESULT OUT OF REFERENCE UNITS RANGE LAB TP 6.3-8.0 g/dL Low Protein, Total 5.4 LAB ALB 3.9-4.9 g/dL Low Albumin 3.3 LAB CA 8.5-10.2 mg/dL Low Calcium, Total 8.2 LAB TBIL 0.2-1.3 mg/dL Bilirubin, Total 0.9 LAB ALKP 32-117 U/L Alkaline Phosphatase 52 LAB AST 13-35 U/L Low AST 12 LAB GLU 74-99 mg/dL Low Glucose 67 Result Comment: The [place] [employer] (ADA) provides guidance for cutoff values for fasting glucose and random glucose. The ADA defines fasting as no caloric intake for at least 8 hours. Fas ting plasma glucose results between 100 to 125 mg/dL indicate increased risk for diabetes (prediabetes). Fasting plasma glucose results greater than or equal to 126 mg/dL meet the criteria for diagnosis of diabetes. In the absence of unequivocal hyperglycemia, results should be confirmed by repeat testing. In a patient with classic symptoms of hyperglycemia or hyperglycemic crisis, random plasma glucose results greater than or equal to 200 mg/dL meet the criteria for diagnosis of diabetes. Reference: Standards of Medical Care in Diabetes 2016, [place] [employer]. Diabetes Care. 2016.39(Suppl 1). LAB BUN 7-21 mg/dL BUN 11 LAB CRET 0.58-0.96 mg/dL Creatinine High 1.16 LAB NA 136-144 mmol/L Low Sodium 135 LAB K 3.7-5.1 mmol/L Low Potassium 3.6 LAB CL 97-105 mmol/L Chloride 100 LAB CO2 22-30 mmol/L CO2 22 LAB AGAP 9-18 mmol/L Anion Gap 13 LAB ALT 7-38 U/L Low ALT <5 Result Comment: Result rechecked. LAB GFRAA eGFR- Amer. >60 LAB GFRNAA . eGFR-All Other Races 56 Result Comment: eGFR (Estimated GFR) Units of measure: mL/min/1.73 meters squared eGFR is derived from the reexpressed MDRD Study equation using the following parameters: serum creatinine, age, gender and race. The creatinine assay has been calibrated to be traceable to IDMS. An eGFR <60 mL/min/1.73m2 for >3 months is consistent with chronic kidney disease. Refer to KDOQI guidelines for clinical interpretation. In patients with unstable renal function, e.g. those with acute kidney injury, the eGFR may not accurately reflect actual GFR. Performed By: #### CBCDIF, CMP #### [facility] [address] [place], [place] [address] PROTIME Collected: 08/25/2017 Status: F Source: [place] 5:30 PM [facility] REPOSITORY TYPE CODE TESTS RESULT OUT OF RANGE REFERENCE UNITS LAB PSEC 9.7-13.0 sec High PT Sec 21.4 LAB INR 0.9-1.3 High PT INR 2.2 Result Comment: Vitamin K Antagonist (VKA) Therapeutic Range: INR 2 to 3 (Target INR of 2.5) Note: For patients treated with VKA drugs, such as warfarin, the [place] [employer] 2012 Guideline recommends a therapeutic INR range of 2 to 3 (target INR of 2.5). This recommendation includes high-risk patients with antiphospholipid syndrome with previous arterial or venous thromboembolism, current-generation mechanical or bioprosthetic aortic heart valve replacement. Note: Patients with mechanical aortic valve replacement and additional risk factors for thromboembolic events (atrial fibrillation, previous thromboembolism, LV dysfunction, hypercoagulable conditions) or an older generation mechanical AVR (i.e., ball in-Cage) or any mechanical MVR should have a INR therapeutic range of 2.5 to 3.5 (target INR of 3). Michael GH, et al. Chest 2012, 141:7S-47S Diogenes RA, et al. [facility] 2017, 70: 252-289 Performed By: #### PT #### [facility] [address] [place], [place] [id number] Observed: 08/25/2017 Status: F Source: [place] BLOOD CULTURE 5:30 PM [facility] REPOSITORY Culture Result - Enterococcus faecalis Cephalosporins, clindamycin, and TMP-SMX are not effective for the treatment of enterococcal infections. --> ABNORMAL ALERT Beta lactamase Negative --> ABNOR MAL ALERT Staphylococcus epidermidis --> ABNORMAL ALERT Refer to specimen collected on --> ABNORMAL ALERT 08/25/17 AT 1740 ([id number]) --> ABNORMAL ALERT (NOTE) Positive result called to and read back by:Roxana [id number] 08/26/17 1414 BBlum ORGANISM: Enterococcus faecalis METHOD: Minimum inhibitory concentration(Vitek) Antibiotic Interp RADHA Status Ampicillin SUSCEPTIBLE <=2 F Vancomycin SUSCEPTIBLE 1 F Streptomycin RESISTANT F Gentamicin 500 RESISTANT F The high level aminoglycoside (gentamicin or streptomycin) screening test predicts synergistic activity of the aminoglycoside with a cell wall active agent (eg, ampicillin, penicillin or vancomycin) that is also susceptible. Performed By: #### BLCUL #### [facility] [address] [place], [place] [address] ED NOTE Observed: 08/25/2017 Status: COMPLETED Source: [place] 5:15 PM [facility] REPOSITORY HNO ID: [id number] Author: Mark SanchezRn) JEFF Lu Service: (none) Author Type: Registered Nurse Type: ED Notes Filed: 08/25/2017 5:15 PM Note Text: Bed: E12-09 Expected date: Expected time: Means of arrival: Comments: Fever with hx PROTHROMBIN TIME W/INR Collected: 08/25/2017 Status: F Source: [place] 8:03 AM [facility] REPOSITORY Order Comment: MEDOUT/PORT DRAW TYPE CODE TESTS RESULT OUT OF RANGE REFERENCE UNITS LAB L300.4150 11.7-14.9 SECONDS High PROTIME 21.4 LAB L300.4200 Normal INR 1.9 Performed By: #### L300.3900 #### [facility] [address] [place], [address] HOSP Observed: 08/25/2017 Status: COMPLETED Source: [place] 12:00 AM [facility] REPOSITORY Patient:Paloma Martinez MRN: <[id number]> Height:5' 2.992(1.6 m) Weight:209 lb 9.6 oz (95.074 kg) Outpatient Medications as of 09/05/17: cyclophosphamide (CYTOXAN) 50 mg capsule predniSONE (DELTASONE) 5 mg tablet sulfamethoxazole-trimethoprim (BACTRIM DS) 800-160 mg per tablet carvedilol (COREG) 25 mg tablet hydrALAZINE (APRESOLINE) 100 mg tablet amLODIPine (NORVASC) 5 mg tablet torsemide (DEMADEX) 20 mg tablet gabapentin (NEURONTIN) 300 mg capsule fluticasone (FLONASE) 50 mcg/actuation nasal spray warfarin (COUMADIN) [address] (PROTONIX) 40 mg tablet isosorbide mononitrate ER (IMDUR) 30 mg 24 hr tablet [facility] cetirizine 10 mg tablet senna 8.6 mg tab Admission/Clinic Administered Medications as of 09/05/17: pantoprazole DR 40 mg tab(s) (PROTONIX) HYDROmorphone 0.5 mg injection (DILAUDID) DAPTOmycin 400 mg in NaCl (PF) 0.9% 8 mL (CUBICIN) diphenhydrAMINE 25 mg in D5W 50 mL prochlorperazine 5 mg injection (COMPAZINE) metroNIDAZOLE 500 mg PREMIX piggyback (FLAGYL) sulfamethoxazole-trimethoprim 800-160 mg 1 tablet (BACTRIM DS,SEPTRA DS) gabapentin 300 mg cap(s) (NEURONTIN) predniSONE 10 mg tab(s) (DELTASONE) 0.9% NaCl 10 mL 0.9% NaCl 20 mL warfarin order for discharge Problem List: Pancytopenia (HCC) [D61.818] HTN (hypertension) [I10] CAPRICE (acute kidney injury) (HCC) [N17.9] Acute on chronic respiratory failure with hypoxia ([facility]) [J96.21] Abdominal pain [R10.9] Severe protein-calorie malnutrition (HCC) [E43] History of heparin-induced thrombocytopenia [Z86.2] (HFpEF) heart failure with preserved ejection fraction (HCC) [I50.30] Peripheral neuropathy [G62.9] CKD (chronic kidney disease) stage 3, GFR 30-59 ml/min [N18.3] Obesity, Class III, BMI >= 40 (morbid obesity) E66.01 [E66.01] APS (antiphospholipid syndrome) ([facility]) [D68.61] Anticoagulation management encounter [Z51.81, Z79.01] Pulmonary HTN [I27.20] GERD (gastroesophageal reflux disease) [K21.9] RUQ abdominal pain [R10.11] Diarrhea [R19.7] Bacteremia [R78.81] History of HIT (heparin-induced thrombocytopenia) ([facility]) [D75.82] Recurrent deep vein thrombosis (DVT) ([facility]) [I82.409] Recurrent pulmonary emboli (HCC) [I26.99] Anticoagulation monitoring, special range [Z79.01] Renal vein thrombosis (HCC) [I82.3] 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] Hypercoagulable state (HCC) [D68.59] Healthcare maintenance [Z00.00] Iron deficiency anemia secondary to inadequate dietary iron intake [D50.8] SIRS (systemic inflammatory response syndrome) ([facility]) [R65.10] Sepsis due to Enterococcus (HCC) [A41.81] Bacteremia due to Staphylococcus epidermidis [R78.81] Allergies: Rhubarb Heparin IV Contrast [Iodine] Rituximab Date Verified: 09/05/17 Lab Values Lab Value Units Date High Low POTA* 3.8 mmol/L 08/30/2017 5.1 3.7 DAREK* 26.5 % 09/05/2017 46.0 36.0 Progress Notes (): Mark Lu RN, RN 08/25/2017 5:15 PM Signed Bed: E12-09 Expected date: Expected time: Means of arrival: Comments: Fever with hx Zhou Medrano Medic, Medic 08/25/2017 5:45 PM Signed Blood cultures drawn and sent.BC#1 RH via straight stick Mari Matt RN, RN 08/25/2017 5:46 PM Signed Labs including lactate drawn and sent Mari Matt RN, RN 08/25/2017 5:46 PM Signed Blood cultures 2nd set drawn from R chest central line and sent. Zhou Medrano Medic, Medic 08/25/2017 5:46 PM Signed Labs including Lactic acid drawn and sent Marissa Cormier RN, RN 08/25/2017 5:47 PM Signed Assumed care of the patient. Triage note reviewed. Labs obtained, including blood cultures and sent to the lab. Update report taken from Charge nurse. Marissa Cormier RN, RN 08/25/2017 5:48 PM Signed X ray at bedside to do port chest film Ishaan Byrne MD, MD 08/26/2017 9:23 PM Signed ED Provider Note Patient Name: Paloma Cannon SERVICE DATE: 08/25/17 History Patient presents with: fever on chemo: pt has antiphospholid antibody syndrome and is receiving chemo. last chemo was yesterday (pt takes chemo every day). pt noticed she had fever today at home it was 103.2f. 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 This morning, patient woke up with the chills. Temp was 103.2. When she got up, she had an episode of dizziness and nausea, vomiting. No further episodes of vomiting. Denies other systemic localizing symptoms. Has baseline leg pain and numbness from prior surgeries. History provided by: Patient and spouse PAST MEDICAL HISTORY Diagnosis Date - (HFpEF) heart failure with preserved ejection fraction (HCC) 02/20/2016 HFpEF w last EF 50-55% On Torsemide, coreg, hydralazine and imdur at home No signs of acute exacerbation on admission Plan: -Continue home medications - Anasarca 11/29/2013 - Anemia 03/10/2015 Chronic microcytic anemia. 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 Thrombosis, and Diffuse Alveolar Hemorrhage. On Warfarin and PLEX (Twice Weekly)? Plan: -Warfarin 5mg qday-holding for planned EGD on 01/11 d/t supra therapeutic INR -Cont. PO Prednisone 10mg MWFS and 5mg TTS -Pantoprazole for GI PPx of Above -Apharesis was supposed to be yesterday, will contact plasmapheresis team on recommendations - Antiphospholipid syndrome (HCC) - Catastrophic Antiphospholipid antibody syndrome 11/09/2013 - Cholelithiasis 01/11/2017 Likely cause of recent pancreatitis. Plan: Per general surgery, no acute surgical intervention at this time. Will await results of EGD. If active gastritis, favor outpatient cholecystectomy. If no active gastritis on EGD, plan for cholecystectomy this admission. 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 - PAST SURGICAL HISTORY OF Adenoidectomy - PICC LINE INSERT/CONSULT 11/29/2013 - PICC LINE INSERT/CONSULT 03/10/2015 - PICC LINE INSERT/CONSULT 02/20/2016 FAMILY HISTORY Problem Relation Age of Onset - Breast Cancer Mother spine BRCA neg - Ovarian cyst [OTHER] Mother - ovarian cyst [OTHER] Sister - Thyroid No Family History Social History Social History Main Topics - Smoking status: Never Smoker - Smokeless tobacco: Never Used - Alcohol use No - Drug use: No - Sexual activity: Not Currently ALLERGIES Allergen Reactions - Rhubarb Rash, Hives - Heparin Other: See Comments Per patient history of HIT - was on angiomax however then took l fondaparinux for bridging to coumadin. - Iv Contrast [Iodine] Other: See Comments shuts kidneys down per patient - Rituximab Other: See Comments Elevated cardiac enzymes Review of Systems Constitutional: Positive for chills, diaphoresis and fever. HENT: Negative for congestion and rhinorrhea. Eyes: Negative for photophobia. Respiratory: Negative for cough, chest tightness and shortness of breath. Cardiovascular: Positive for leg swelling (chronic, improved). Negative for chest pain and palpitations. Gastrointestinal: Positive for nausea. Negative for abdominal pain, blood in stool, constipation, diarrhea and vomiting. Genitourinary: Negative for dysuria. Musculoskeletal: Negative for arthralgias and myalgias. Neurological: Negative for headaches. Psychiatric/Behavioral: Negative for confusion. Physical Exam BP 144/58 Pulse 111 Temp (Src) 102.1 (Oral) Resp 20 Ht 5' 3 (1.60m) Wt 204 lb (92.5kg) SpO2 100% BMI 36.15 kg/(m2). Physical Exam Constitutional: She is oriented to person, place, and time. She appears well-developed and well-nourished. HENT: Head: Normocephalic and atraumatic. Eyes: Conjunctivae and EOM are normal. Neck: Normal range of motion. Cardiovascular: Normal rate and regular rhythm. Murmur (systolic, LUSB) heard. Pulmonary/Chest: Effort normal and breath sounds normal. She has no wheezes. She has no rales. apharesis line on L and samantha on R anterior chest without erythema, swelling or tenderness Abdominal: Soft. Bowel sounds are normal. She exhibits no distension. There is no tenderness. Musculoskeletal: Normal range of motion. She exhibits edema (1+ tense pitting edema up to thighs bilaterally). Neurological: She is alert and oriented to person, place, and time. Skin: Skin is warm and dry. Psychiatric: She has a normal mood and affect. Diagnostic Testing ED Labs Ordered and Reviewed CBC + DIFF - Abnormal; Notable for the following: Result Value Ref Range WBC 2.94 (*) 3.70 - 11.00 k/uL RBC 3.41 (*) 3.90 - 5.20 m/uL Hemoglobin 8.8 (*) 11.5 - 15.5 g/dL Hematocrit 28.7 (*) 36.0 - 46.0 % MCH 25.8 (*) 26.0 - 34.0 pG RDW-CV 21.0 (*) 11.5 - 15.0 % Platelet Count 72 (*) 150 - 400 k/uL Abs Lymph 0.13 (*) 1.00 - 4.00 k/uL All other components within normal limits COMP METABOLIC PANEL - Abnormal; Notable for the following: Protein, Total 5.4 (*) 6.3 - 8.0 g/dL Albumin 3.3 (*) 3.9 - 4.9 g/dL Calcium 8.2 (*) 8.5 - 10.2 mg/dL AST 12 (*) 13 - 35 U/L Glucose 67 (*) 74 - 99 mg/dL Creatinine 1.16 (*) 0.58 - 0.96 mg/dL Sodium 135 (*) 136 - 144 mmol/L Potassium 3.6 (*) 3.7 - 5.1 mmol/L ALT <5 (*) 7 - 38 U/L All other components within normal limits FLU A/B B/O - Normal LACTATE - ED (POC) RAPID PCR ASSAY FOR FLU/RSV ED BG VENOUS/LAB PANELS PROTHROMBIN TIME/PT URINALYSIS WITH MICROSCOPIC BLOOD CULTURE DRAW BLOOD CULTURE DRAW URINE CULTURE Procedures Medical Decision Making / ED Course ED Course This is a 27 yo F with HIT, CKD, APS c/b DAH, 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 CBC with abs neutrophil count 2.5k, not neutropenic. Flu is negative. Due to tachycardia and fever meeting SIRS criteria and indwelling catheters, broad spectrum antibiotics were administered after blood cultures (one from samantha, one from peripheral). Lactate was normal. Patient will be transferred to RNF medicine service for further workup of febrile illness. Encounter Diagnosis ICD-10-CM 1. Fever, unspecified fever cause R50.9 Plan The Patient was ADMITTED TO: Regular nursing floor. Condition at time of disposition: stable SIGNATURE: Slava Taveras MD Attending Note I evaluated the patient and personally participated in the fernandes components. I agree with the resident's findings and plan as documented and have discussed the case and management of the patient's care with the resident. 27 yo female on immunosuppressive therapy presents with persistent fever. No evidence of severe sepsis in the ED. IV antibiotics given for possible line sepsis. Admitted in stable condition. Signature: Ishaan Byrne MD Date: 08/26/2017 Time: 9:18 PM Ishaan Byrne MD 08/26/172122 Previous Version Marissa Cormier, RN, RN 08/25/2017 6:22 PM Signed Flu swab obtained and sent to POC IV fluid bolus infusing 1st liter up. Marissa Cormier RN, RN 08/25/2017 6:32 PM Signed at bedside. Neutropenic precautions maintained. C/o fever 103.2 starting around 1:30pm. Pt also had chills, Rigor shaking, then vomiting, no diarrhea. Pt had vertigo with the vomiting. Pt has a little sternal pain from vomiting. 10. Pt has neuropathy pain under her R knee and both side of her groin. Pt has 2 stents, each groin with fistulas. Pt is on coumadin now. Coumadin level =1.5. Pt has hx of aveoliar hemorrhaging caused by antiphospholipid antibody that was dx 2013. Surgery was to remove the cloths in her legs. Pt does have a filter. Pt has a dry cough, usually in the morning. Pt does cough up blood due to her coughing. Sue Bah, RT 08/25/2017 6:35 PM Signed Radiology Service Progress Note PATIENT NAME: Paloma Cannon DATE OF SERVICE: August 25, 2017 TIME: 6:35 PM PATIENT IDENTITY VERIFICATION COMPLETED USING TWO (2) METHODS: Patient confirmed name verbally and ID band matches.. PATIENT GENDER DATA: Female. status: : No status: N/A PATIENT RELEVANT IMPLANT DATA REVIEWED: Not Applicable RADIOLOGY DEPARTMENT: General X-ray: Exam(s) Completed: Chest X-Ray PERIPHERAL IV DATA: Not applicable SIGNED BY: RT Pawan August 25, 2017 6:35 PM Aubree Flanagan, RN, RN 08/25/2017 7:57 PM Signed Report to [facility] on [facility]-; bed ready. Awaiting transport. Aubree Flanagan, RN, RN 08/25/2017 8:09 PM Addendum VSS. Transported to [facility] via cart escorted by medic. Remains stable. Spouse at bedside. Belongings at side. 2nd liter of IVF continue to infuse as ordered; see MAR. IV antibiotics hung and infusing as ordered; see MAR. Previous Version [facility] Provider 08/25/2017 8:54 PM Signed [facility] Patient Education Report ---- Name: PALOMA MARTINEZ Date: 08/25/2017 Time: 8:53 PM Patient Ordered Video: Inpatient Falls from [id number] via phone number [phone] at 8:53 PM Kwesi Manriquez MD 08/26/2017 11:15 AM Addendum INTERNAL MEDICINE HANDP EXAMINATION VIPUL Marie SERVICE DATE: 08/25/2017 SERVICE TIME: 9:46 PM PRIMARY CARE PHYSICIAN: PEYTON ROGERS MD Subjective CHIEF COMPLAINT: Fever, nausea and vomit HISTORY OF PRESENT ILLNESS: Ms. Nelli Cannon is a 27 year old female with PMHx significant for - Antiphospholipid syndrome?(on plasmapheresis- PLEX every other week, prednisone?5/10mg) - c/b PE AND?DVT 09/2013 (s/p b/l iliac v. stents and Endoglix AFX endograft at the inferior vena caval bifurcation) on Warfarin (h/o HIT) extensive thrombectomy at outside hospital for right lower extremity and IVC thrombus - Diffuse alveolar hemorrhage?(x 5 episodes some episodes recently with negative bronchoscopy) - HFpEF2/2 intolerance to Rituximab - CKD. - Gallstone pancreatitis S/P cholecystectomy - 2017 - Catheter related infection completed 6 weeks of dapmycin - C. Diff colitis Who presents with fevers that started this afternoon. She was asymptomatic up until her INR check she went home and afterwards has subjective fevers up to 103 F, she also has episodes of nausea and vomit for 6 times. She noted her skin was very warm to the touch so she decided to come to ED at [facility]. When she presented she was febrile, un to 103.2, tachycardic 111, BP 140/58, on her home O2 requirements which are 2 lt NC, breathing with no distress. Lab work here was significant for pancytopenia WBC 2.9 K, Hb 8.8, Plt 72k, hyponatremia 135, K 3.6, CAPRICE 1.16, Hypocalcemia and normal LFTs. Her lactate was 0.8. Two sets of BCx were drawn. She had a negative flu test. Her CXR was unremarkable. She received 1 lt of NS, one dose of Vancomycin and Zosyn and was transferred to the floor for further management. On arrival, she was in no acute distress, still having subjective fevers, mild ches discomfort from vomiting ans burning with urination. She denied chest pain, cough, SOB, abdominal pain, changes in bowel movements, pain around Samantha cath, rashes, no headaches, no bloody stools PAST MEDICAL HISTORY Diagnosis Date - (HFpEF) heart failure with preserved ejection fraction (HCC) 02/20/2016 HFpEF w last EF 50-55% On Torsemide, coreg, hydralazine and imdur at home No signs of acute exacerbation on admission Plan: -Continue home medications - Anasarca 11/29/2013 - Anemia 03/10/2015 Chronic microcytic anemia. 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 Thrombosis, and Diffuse Alveolar Hemorrhage. On Warfarin and PLEX (Twice Weekly)? Plan: -Warfarin 5mg qday-holding for planned EGD on 01/11 d/t supra therapeutic INR -Cont. PO Prednisone 10mg MWFS and 5mg TTS -Pantoprazole for GI PPx of Above -Apharesis was supposed to be yesterday, will contact plasmapheresis team on recommendations - Antiphospholipid syndrome (HCC) - Catastrophic Antiphospholipid antibody syndrome 11/09/2013 - Cholelithiasis 01/11/2017 Likely cause of recent pancreatitis. Plan: Per general surgery, no acute surgical intervention at this time. Will await results of EGD. If active gastritis, favor outpatient cholecystectomy. If no active gastritis on EGD, plan for cholecystectomy this admission. 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 2 caps - 7 days; 3 caps- 7 days; 4 caps daily thereafter Disp: 120 capsule Rfl: 6 Unknown at Unknown time predniSONE (DELTASONE) 5 mg tablet Take by mouth daily. 20 mg - Jun; 15 mg - Jul; 10 mg - Aug; 5 mg - Sep onwards Disp: 200 tablet Rfl: 4 Unknown at Unknown time sulfamethoxazole-trimethoprim (BACTRIM DS) 800-160 mg per tablet Take 1 tablet by mouth every Monday,Monday,Monday. Disp: 36 tablet Rfl: 3 Unknown at Unknown time carvedilol (COREG) 25 mg tablet Take 1 tablet by mouth twice daily with meals. HOLD FOR SBP <110 AND HR <60 Disp: 60 tablet Rfl: 3 Unknown at Unknown time hydrALAZINE (APRESOLINE) 100 mg tablet Take 1 tablet by mouth every 8 hours. HOLD FOR SBP <110 Disp: 90 tablet Rfl: 0 Unknown at Unknown time amLODIPine (NORVASC) 5 mg tablet Take 1 tablet by mouth once daily. HOLD FOR SBP <120 Disp: 30 tablet Rfl: 3 Unknown at Unknown time torsemide (DEMADEX) 20 mg tablet Take 2 tablets by mouth once daily. Disp: 30 tablet Rfl: 0 Unknown at Unknown time gabapentin (NEURONTIN) 300 mg capsule Please take gabapentin 200 mg three times daily for 3 days.If you tolerate it, increase to 300 mg three times a day for 3 days.If you tolerate it, increase to 600 mg at bedtime and 300 mg daytime for 3 days.If you tolerate it, increase to 600 mg three times a day for 3 days.If you tolerate it, increase to 900 mg at bedtime and 600 mg daytime for 3 days.If you tolerate it, increase to 900 mg three times a day for 3 days. (Patient taking differently: 300 mg three times daily.) Disp: 360 capsule Rfl: 3 Unknown at Unknown time fluticasone (FLONASE) 50 mcg/actuation nasal spray Use 1 [place] in each nostril once daily. Disp: Rfl: Unknown at Unknown time warfarin (COUMADIN) 5 mg tablet take by mouth as directed in the evening to keep INR between 2.0-3.0 (Patient taking differently: Take 5 mg by mouth once daily. take by mouth as directed in the evening to keep INR between 2.0-3.0 Apheresis weeks takes 7.5 mg x3 days and holds 2-3 days prior to apheresis.) Disp: 45 tablet Rfl: 6 Unknown at Unknown time pantoprazole DR (PROTONIX) 40 mg tablet Take 1 tablet by mouth DAILY (6 AM). Disp: 90 tablet Rfl: 1 Unknown at Unknown time isosorbide mononitrate ER (IMDUR) 30 mg 24 hr tablet Take 2 tablets by mouth once daily. Please hold if your blood pressure is less than 120/80. Disp: 90 tablet Rfl: 3 Unknown at Unknown time cetirizine 10 mg tablet Take 1 tablet by mouth once daily. (Patient taking differently: Take 10 mg by mouth twice daily. being taper up on the dosage of medication per order. ) Disp: 30 tablet Rfl: 0 Unknown at Unknown time senna 8.6 mg tab Take 1 tablet by mouth twice daily as needed. Disp: 60 tablet Rfl: 0 Unknown at Unknown time Miscellaneous Medical Supply misc 1 package 30 - 40 mmHg pressure panty hose compression stockings. Disp: 1 Each Rfl: 3 Unknown at Unknown time ALLERGIES Allergen Reactions - Rhubarb Rash, Hives - Heparin Other: See Comments Per patient history of HIT - was on angiomax however then took l fondaparinux for bridging to coumadin. - Iv Contrast [Iodine] Other: See Comments shuts kidneys down per patient - Rituximab Other: See Comments Elevated cardiac enzymes COMPLETE REVIEW OF SYSTEMS: As per HPI Objective PHYSICAL EXAM: Patient Vitals for the past 24 hrs: BP Temp Temp src Pulse Resp SpO2 Height Weight 08/25/172054 140/64 38.9 ?C (102.1 ?F) Oral 105 18 100 % 160 cm (5' 3) 92.5 kg (203 lb 14.8 oz) 08/25/172004 147/67 (!) 39.6 ?C (103.2 ?F) Oral (!) 105 20 100 % - - 08/25/171708 144/58 (!) 38.9 ?C (102.1 ?F) Oral (!) 111 20 100 % 160 cm (5' 3) 92.5 kg (204 lb) Body mass index is 36.12 kg/(m2). GENERAL: Alert, no distress, cooperative, Obese, Flushed SKIN: Skin color, texture, turgor normal. No rashes or lesions., Positive findings: Erythema: generalized OROPHARYNX: Lips, mucosa, and tongue are normal.Teeth and gums, normal. Oropharynx normal. NECK: No jugulovenous distention, No carotid bruits, Carotid pulse normal contour, Supple LUNGS: Lungs clear to auscultation. Good diaphragmatic excursion. CARDIAC: Rate: tachycardia Murmur 1:2/6, holosystolic, medium pitched, base ABDOMEN: Abdomen soft, non-tender, BS normal, No masses or organomegaly EXTREMETIES: Extremities normal, no deformities, edema, clubbing or skin discoloration. Good capillary refill., No ulcers NEURO: Alert, oriented X 3, Gait normal. Non-focal. Reflexes normal and symmetric. Sensation grossly intact., Cranial nerves II-XII intact PULSES: 2+ radial, 2+ carotid DATA: Diagnostic tests reviewed for today's visit: Most recent labs and imaging results. Most recent labs Most recent imaging Most recent EKG CBC, Coags, BMP, Mg, Phos Recent Labs 08/25/17 1730 WBC 2.94* HB 8.8* HCT 28.7* PLT 72* INR 2.2* NA 135* K 3.6* CHLOR 100 CO2 22 BUN 11 CREAT 1.16* GLUC 67* CA 8.2* Liver Function, Amylase, AND Lipase Recent Labs 08/25/17 1735 08/25/17 1730 TPROT -- 5.4* ALB -- 3.3* ALT -- <5* AST -- 12* ALKPHOS -- 52 TBILI -- 0.9 LACT 0.8 -- ABGs Assessment/Plan Problem Edema Chronic lower extremity edema Patient states its improved today from previous Plan: - Continue Torsemide Nausea AND Vomiting Had 6 episodes of nausea and vomit QTC 456 Decreased PO intake Plan - Ondansetron PRN - Diet as tolerated - Gentle IVF - Check electrolytes and replete as needed Caprice (Acute Kidney Injury) (Hcc) Rising Cr relative to baseline of 0.9 Secondary to nausea and vomit Plan - Monitor BMP - Strict I/O - Daily weight - Avoid nephrotoxins Aps (Antiphospholipid Syndrome) (Hcc) - This was diagnosed in when she presented catastrophically with PE/DVT needing extensive percutaneous thrombectomy of her IVC and lower extremity veins followed by placement of B/L iliac venous stents and an endograft into her IVC. - She has a history of HIT - Initially give IV Rituximab with no benefits and complications of associated cardiotoxicity - Due to her being triple positive with + lupus anticoagulant, + [id number], and + anti-cardiolipin antibodies, she is on plasmapheresis every other week since and is also on Prednisone 5 mg daily. - Also complicated by diffuse alveolar hemorrhage, as she has had 5 acute episodes of respiratory decline since , three of which were associated with her needing ET intubation and mechanical ventilation, last being in 07/26 - She was started on Cytoxan titrated to 200 mg daily on 06/2017 Plan - She will need Staff physician to sing order to continue home dose Cytoxan - Plan to continue plasmapheresis every other week - Continue Warfarin 7.5 - Continue prednisone - Monitor respiratory function - O2 to sat > 95% - BPH - Monitor Hb - Monitor INR - Avoid Heparin products Ckd (Chronic Kidney Disease) Stage 3, Gfr 30-59 Ml/Min Renal vein thrombosis with additional insult in from contrast induced nephropathy. Per records her baseline is 1.1. Theres documented SCr 0.9 Currently Scr 1.1 Possibly related to nausea, vomit and decreased PO intake. Plan: - Renally dose medication - Gentle hydration overnight - Avoid nephrotoxins. - Strict I/O - Daily weight (Hfpef) Heart Failure With Preserved Ejection Fraction (Hcc) Thought to be Rituximab induced On Carvedilol, Amlodipine, Hydralazine and Isordil at home She did not get BP today SBP 140s No CHF physiology Last ECHO 11/2016: EF 50-55%. +2 TR, AI, MR. - Continue Coreg - Continue Amlodipine - Start Torsemide tomorrow - Patient refusing Heart Healthy diet. Pancytopenia (Hcc) Htn (Hypertension) SBP 140s Has not taken any BP meds today d/t nausea Will hold Hydra and Isordil overnight Plan: - Continue Coreg - Continue Norvas - Hold hydra in the setting of SIRS - Hold Isordil in the setting of SIRS Obesity, Class III, BMI >= 40 (morbid obesity) E66.01 Body mass index is 36.12 kg/(m2). Sirs (Systemic Inflammatory Response Syndrome) (Hcc) She has low WBC, she is tachycardic, she is febrile. She is not in respiratory distress Possible sources include line related infection, UTI in the setting of dysuria Two sets of BCx sent in ED Lactate is normal No lymphadenopathy Plan: - Continue Zosyn - Vancomycin at lower rate since she has Hx of red man syndrome - Follow Bcx - Follow UA and microscopy - Culture from lines. - ESR, CRP Red Man Syndrome History of poor Vancomycin tolerance Currently she is presents with generalized erythema Plan: - Vancomycin at slower rate History of HIT (heparin-induced thrombocytopenia) ([facility]) She is on coumadin for this reason She has pancytopenia now, possibly related to Cytoxan Plan: - Avoid heparin products - Daily CBC Recurrent Deep Vein Thrombosis (Dvt) ([facility]) Complicated by PE AND?DVT 09/2013 (s/p b/l iliac v. stents and Endoglix AFX endograft at the inferior vena caval bifurcation) on Warfarin (h/o HIT) extensive thrombectomy at outside hospital for right lower extremity and IVC thrombus. Plan: - Continue Warfarin 7.5 - Monitor INR SIGNATURE: Jcarlos Estrada MD PATIENT NAME: Paloma Cannon DATE: August 25, 2017 TIME: 9:46 PM PAGER/CONTACT #: [phone] [facility] Addendum Please refer to excellent note by Dr Estrada above for futher details. CHIEF COMPLAINT: Sepsis HPI 27 year old F with h/o: - catastrophic anti-phospholipid antibody syndrome diagnosed in 2013 when she presented with PE/DVT needing extensive percutaneous thrombectomy of her IVC and lower extremity veins followed by placement of B/L iliac venous stents and an endograft into her IVC (triple positive with + lupus anticoagulant, + [id number], and + anti-cardiolipin antibodies, she is on plasmapheresis every other week since and is also on Prednisone 5 mg daily-now on chronic anticoagulation with Warfarin) - diffuse alveolar hemorrhage ( on Cytoxan 200 mg daily) - RONNIE - HFpEF - HTN - chronic kidney disease (but last Cr was 0.95 on 08/21/2017) She presented for fevers upto 103, chills and generalized fatigue which started in morning. No other s/s of cough, cold. Her last plasmapheresis was on 08/28. She has R and L subclavian lines which are used for this. In 03/2017 there was a concern for MALICK line related sepsis when she was d/c on COPAT with Daptomycin. She was also complaining of some burning with urination. No other s/s of nocturia, hematuria, frequency, urgency. When she presented to the ED, VS were consistent with Tm 102.1F, HR 111, BP 144/58. Blood cultures were drawn and she was given V and Z and transferred to [facility] for further management. PHYSICAL EXAM Blood pressure 140/64, pulse 105, temperature 38.9 ?C (102.1 ?F), temperature source Oral, resp. rate 18, height 160 cm (5' 3), weight 92.5 kg (203 lb 14.8 oz), SpO2 100 %. General: In no acute distress. AO X 3 Lungs: CTAB Heart:: RRR. No murmurs Abdomen: Soft, nt, nd. No hepatomegaly Extremities: +3 edema . No lacerations Neurological: Sensation and motor strength intact in BLUE and BLLE. Cranial Nerves 1-12 intact ASSESSMENT AND PLAN # Severe sepsis - h/o APLA syndrome and on immunosuppression and PLEX q 2 weeks - has been using R and L subclavian lines for the same - presented with 1 day h/o fevers upto 103, chills and generalized fatigue which started in morning. No other s/s of cough, cold. No sick contacts. - In 03/2017 there was a concern for MALICK line related sepsis when she was d/c on COPAT with Daptomycin. The plan was to preserve the line because she is plasmapheresis dependent. Plans: - blood and urine cultures - line cultures - Vancomycin and Zosyn through the subclavian lines - if the line culture are positive, will have to consider removal # APLA - catastrophic anti-phospholipid antibody syndrome diagnosed in 2013 when she presented with PE/DVT needing extensive percutaneous thrombectomy of her IVC and lower extremity veins followed by placement of B/L iliac venous stents and an endograft into her IVC (triple positive with + lupus anticoagulant, + [id number], and + anti-cardiolipin antibodies, - She is on plasmapheresis every other week since and is also on Prednisone 5 mg daily - on chronic anticoagulation with Warfarin and she has RONNIE - also c/b diffuse alveolar hemorrhage ( on Cytoxan 200 mg daily) - continue home dose of warfarin and immunosuppression Component Latest Ref Rng AND Units 06/27/2016 07/25/2016 08/22/2016 09/19/2016 10/17/2016 02/21/2017 04/07/2017 05/08/2017 05/24/2017 05/30/2017 06/27/2017 07/24/2017 08/21/2017 Beta 2 Glycoprotein, IgG <20 SGU 93 (H) 63 (H) 110 (H) 79 (H) 132 (H) >150 (H) >150 (H) >150 (H) >150 (H) >150 (H) >150 (H) >150 (H) 140 (H) Beta 2 Glycoprotein, IgM <20 SMU <9 <9 <9 <9 <9 24 (H) 12 11 <9 <9 12 12 <9 Cardiolipin Ab, IgG 0 - 9 GPL 65 (H) 59 (H) 84 (H) 55 (H) 83 (H) 121 (H) 125 (H) 120 (H) 107 (H) 104 (H) 113 (H) 115 (H) 51 (H) Cardiolipin Ab, IgM 0 - 11 MPL 9 9 12 (H) 11 12 (H) 32 (H) 23 (H) 15 (H) 12 (H) 11 9 15 (H) <9 Cardiolipin Ab, IgA 0 - 11 APL 17 (H) <9 9 <9 10 10 9 <9 <9 <9 <9 <9 <9 Platelet Neut Negative Positive (A) Positive (A) Positive (A) Positive (A) Positive (A) Positive (A) Positive (A) Positive (A) Positive (A) Positive (A) DRVVT Screen 32.7 - 46.7 sec 78.0 (H) 97.8 (H) 99.7 (H) 111.4 (H) 85.0 (H) 80.0 (H) 95.0 (H) 110.4 (H) 111.9 (H) 90.5 (H) DRVVT Confirm Ratio <1.21 1.37 (H) 1.65 (H) 1.77 (H) 1.84 (H) 1.80 (H) 1.64 (H) 1.87 (H) 2.03 (H) 1.94 (H) 1.98 (H) DRVVT 1:1 Mix 32.7 - 46.7 sec 60.2 (H) 70.8 (H) 66.9 (H) 68.2 (H) 66.0 (H) 68.8 (H) 73.5 (H) 71.4 (H) 75.7 (H) 61.7 (H) Hex Phase Screen 48.9 - 70.2 sec 72.3 (H) 84.7 (H) 85.8 (H) 85.0 (H) 94.7 (H) 82.5 (H) 94.7 (H) 94.8 (H) 91.6 (H) 61.2 Hex Phase Confirm 45.1 - 64.1 sec 63.9 68.9 (H) 69.4 (H) 68.4 (H) 76.1 (H) 69.1 (H) 77.3 (H) 77.8 (H) 72.2 (H) 50.0 Hex Phase Delta <9.0 delta sec 8.4 15.8 (H) 16.4 (H) 16.6 (H) 18.6 (H) 13.4 (H) 17.4 (H) 17.0 (H) 19.5 (H) 11.2 (H) APTT Screen 24.4 - 33.4 sec 43.6 (H) 54.1 (H) 53.0 (H) 65.1 (H) 57.1 (H) 50.3 (H) 52.3 (H) 61.1 (H) 56.4 (H) 40.2 (H) Immediate PTT 1:1 Mix <33.5 sec 32.7 36.3 (H) 35.6 (H) 35.3 (H) 39.5 (H) 38.2 (H) 38.2 (H) 44.9 (H) 39.9 (H) 32.4 Incubated PTT 1:1 Mix <37.3 sec 35.3 40.2 (H) 39.1 (H) 37.3 (H) 42.4 (H) 44.0 (H) 41.4 (H) 47.9 (H) 47.0 (H) 36.1 Thrombin Time <18.6 sec 14.8 15.2 16.7 16.3 16.9 14.5 15.5 15.8 14.7 15.0 Interpretation(Lupus Anticoagulant) (NOTE) (NOTE) (NOTE) (NOTE) (NOTE) (NOTE) (NOTE) (NOTE) (NOTE) (NOTE) PT Sec 9.7 - 13.0 sec 24.5 (H) 26.0 (H) 25.9 (H) 33.2 (H) 17.8 (H) 18.8 (H) 23.8 (H) 27.7 (H) 28.7 (H) 15.3 (H) PT INR 0.9 - 1.3 2.2 (H) 2.4 (H) 2.4 (H) 3.0 (H) 1.8 (H) 1.9 (H) 2.4 (H) 2.9 (H) 3.0 (H) 1.5 (H) APTT 23.0 - 32.4 sec 39.4 (H) 41.7 (H) 43.7 (H) 50.1 (H) 38.8 (H) 35.4 (H) 37.0 (H) 43.3 (H) 41.4 (H) 31.9 # HIT -on therapeutic warfarin # CAPRICE on CKD Component 12/22/2016 12/23/2016 12/24/2016 12/25/2016 12/26/2016 12/26/2016 12/27/2016 12/28/2016 01/01/2017 01/02/2017 01/03/2017 01/04/2017 01/07/2017 01/08/2017 01/09/2017 01/10/2017 01/11/2017 01/12/2017 2017 01/14/2017 01/15/2017 01/16/2017 01/16/2017 01/17/2017 01/18/2017 01/19/2017 01/20/2017 01/21/2017 01/22/2017 01/23/2017 01/23/2017 01/31/2017 01/31/2017 02/02/2017 02/03/2017 02/04/2017 02/05/2017 02/06/2017 02/07/2017 02/08/2017 02/09/2017 02/10/2017 02/21/2017 03/09/2017 03/09/2017 03/10/2017 03/11/2017 03/13/2017 03/15/2017 03/16/2017 03/17/2017 03/18/2017 03/19/2017 03/20/2017 03/21/2017 03/22/2017 03/23/2017 03/24/2017 03/27/2017 04/07/2017 04/10/2017 04/17/2017 04/24/2017 04/26/2017 04/27/2017 04/28/2017 05/08/2017 05/24/2017 05/30/2017 06/07/2017 06/09/2017 06/10/2017 06/12/2017 06/20/2017 06/27/2017 07/11/2017 07/24/2017 08/07/2017 08/21/2017 08/25/2017 08/26/2017 6:04 AM 2:00 PM 4:00 AM 6:23 PM 5:13 AM 5:57 AM 8:36 AM 11:55 PM 7:02 AM 11:55 PM Creatinine 3.17 (H) 2.76 (H) 2.68 (H) 2.09 (H) 1.76 (H) 1.63 (H) 1.64 (H) 1.72 (H) 1.51 (H) 1.84 (H) 2.00 (H) 2.18 (H) 1.69 (H) 1.68 (H) 2.03 (H) 2.29 (H) 2.26 (H) 2.79 (H) 2.73 (H) 2.40 (H) 1.99 (H) 1.83 (H) 1.76 (H) 1.75 (H) 2.14 (H) 2.01 (H) 1.72 (H) 1.76 (H) 1.54 (H) 1.65 (H) 1.64 (H) 1.28 (H) 1.72 (H) 2.05 (H) 2.03 (H) 1.84 (H) 1.77 (H) 1.62 (H) 1.51 (H) 1.41 (H) 1.28 (H) 1.39 (H) 1.13 (H) 1.08 (H) 1.48 (H) 1.97 (H) 2.11 (H) 2.00 (H) 2.84 (H) 2.78 (H) 2.59 (H) 3.02 (H) 3.16 (H) 2.93 (H) 2.94 (H) 2.88 (H) 2.63 (H) 2.75 (H) 2.14 (A) 1.63 (H) 1.29 (A) 1.26 (A) 0.91 1.09 (H) 1.03 (H) 1.34 (H) 0.84 0.71 0.76 0.97 (H) 1.45 (H) 1.65 (H) 1.99 (H) 0.95 0.95 0.97 (H) 0.86 1.11 (H) 0.95 1.16 (H) 1.40 (H) -Has had h/o chronic renal vein thrombosis and contrast induced injury in 2013. -holding Torsemide for today -received IV fluids ~1.5L -will monitor for now and if worsens, will have to reconsider Vancomycin with prior h/o Vancomycin induced nephropathy # Pancytopenia Component 07/24/2017 08/07/2017 08/21/2017 08/25/2017 08/26/2017 WBC 6.70 5.65 3.22 (L) 2.94 (L) 2.07 (L) RBC 3.65 (L) 3.80 (L) 3.50 (L) 3.41 (L) 3.12 (L) Hemoglobin 9.0 (L) 9.4 (L) 8.8 (L) 8.8 (L) 7.9 (L) Hematocrit 29.1 (L) 30.6 (L) 28.0 (L) 28.7 (L) 25.7 (L) MCV 79.7 (L) 80.5 80.0 84.2 82.4 MCH 24.7 (L) 24.7 (L) 25.1 (L) 25.8 (L) 25.3 (L) MCHC 30.9 30.7 31.4 30.7 30.7 RDW-CV 19.8 (H) 19.0 (H) 20.0 (H) 21.0 (H) 21.2 (H) Platelet Count 64 (L) 143 (L) 97 (L) 72 (L) 61 (L) Neut% 84.9 89.6 80.8 86.4 76.8 Abs Neut (ANC) 5.69 5.06 2.60 2.52 1.57 Lymph% 5.1 2.5 6.2 4.4 8.7 Abs Lymph 0.34 (L) 0.14 (L) 0.20 (L) 0.13 (L) 0.18 (L) [place]% 4.6 6.2 8.7 6.5 11.1 Abs [place] 0.31 0.35 0.28 0.19 0.23 Eosin% 5.1 1.2 3.1 1.7 2.4 Abs Eosin 0.34 0.07 0.10 0.05 0.05 Baso% 0.3 0.5 1.2 1.0 1.0 Abs Baso <0.03 0.03 0.04 0.03 <0.03 - will order retic count - CBC with Staff review - could be in the setting of sepsis - could also be from Cytoxan but this seems to be new from 07/2017 and she has been on Cytoxan since 06/2017. Jose Manuel Serrato MD Internal Medicine PGY-3 Pager [phone] August 25, 2017 11:[address] FRED STONE, SR. HOSPITAL STAFF PHYSICIAN NOTE OF PERSONAL INVOLVEMENT IN CARE: Patient seen with overnight admitting team and [place] team D. I have reviewed the history and physical examination obtained and documented by the resident and I personally participated in the fernandes components. I have discussed the case and management of the patient's care. The following comments revise or confirm relevant fernandes components of the note. 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 stents and Endoglix AFX endograft at the inferior vena caval bifurcation) ; renal vein thrombosis; on Cytoxan; coumadin; h/o HIT; on iv Plasmapheresis every other week (intolerance to Ritiximab); history of Diffuse alveolar hemorrhage x5 episodes; CKD and HfPEF admitted with high grade fevers; dry heaving and watery diarrhea. Per review of records; cytoxan was started in Jun 2017; her counts were normal till end of Jul 2017. Initial workup showed relative Pancytopenia which is rather new; normal CXR; Blood cultures: 1/2 GPCs in pairs and chains from central line. INR 2.2 at admission. No erythema noted around her R subclavian catheter. CXR reviewed. Peripheral smear and Retic count. She was initiated on iv Vanco and Zosyn and iv fluids. Repeat blood cultures; TTE; agree with ID consult. Check CMV; Fungal battery; stool for C diff. Would hold torsemide day to day and reassess while she has ongoing losses; adjust Vanco and Zosyn with serum creatinine. Care Coordination The majority of the visit was spent counseling and/or coordinating care for the patient. [id number]-[id number] time was 25 minutes. Kwesi Manriquez MD Beeper Number: [id number]. Date of Service: August 26, 2017 Time of Service: 11.14 AM. Previous Version Rachael Andrade RN, RN 08/26/2017 12:34 AM Addendum Admission/Transfer Note PATIENT NAME: Paloma Cannon Patient admitted from ED via stretcher in stable condition. Notified Of sepsis care path [facility]. Actions taken: Patient oriented to room, call light function, prescribed activities, Patient rights and Quiet at night. This note was completed by: Rachael Andrade RN Previous Version Lorna Dowling MD 08/26/2017 8:10 AM Signed Patient transferred to [facility] on August 26, 2017. ? Sub Assembly Team Worker (first call)- Yasmine Russo; Pager [phone]. ? Resident: Lorna Dowling MD, PhD; Pager [phone]. Staff: Kwesi Manriquez MD. DAYSI RODRIGUEZ, CONFERENCE TRANSLATOR 08/26/2017 8:29 AM Signed PHARMACY VANCOMYCIN DOSING NOTE Patient Name: Paloma Cannon Admission Date: 08/25/2017 Date of Consult: 08/26/2017 Time of Consult: 8:28 AM Indication: Source Unknown; empiric Goal Range: 10-20 mcg/mL RECOMMENDATIONS/PLAN: Pharmacy consulted for vancomycin dosing for Paloma Cannon, a 27 year old, female who is being treated with vancomycin for empiric therapy. 1. Patient is currently ordered Vancomycin 1.5 g IV q12h. Today is day 1 of therapy. 2. No vancomycin level has been drawn for this dosing regimen. 3. The present dose of vancomycin is the recommended dosage for this patient at this time. Continue therapy as prescribed. 4. The next vancomycin level will be ordered for 08/28 unless clinically indicated sooner. (Pharmacy will order) We will follow patient renal function, vancomycin levels and doses with you during the course of therapy. Additional recommendations will appear in follow up notes. If you have any questions, please contact Rome Yu at [phone]. Age: [age] year old Allergies: ALLERGIES Allergen Reactions - Rhubarb Rash, Hives - Heparin Other: See Comments Per patient history of HIT - was on angiomax however then took l fondaparinux for bridging to coumadin. - Iv Contrast [Iodine] Other: See Comments shuts kidneys down per patient - Rituximab Other: See Comments Elevated cardiac enzymes Last 3 Encounter Wt Readings: Date: Wt: 08/25/2017 92.5 kg (203 lb 14.8 oz) 08/21/2017 92.7 kg (204 lb 6.4 oz) 07/11/2017 106.6 kg (235 lb) Last 1 Encounter Ht Readings: Date: Ht: 08/25/2017 160 cm (5' 3) CrCl: ~65 mL/min Temp (24hrs), Av ?C (102.2 ?F), Min:38.3 ?C (101 ?F), Max:39.8 ?C (103.6 ?F) - Current Temp: 38.3 ?C (101 ?F) Labs BUN (mg/dL) Date Value 08/26/2017 11 08/25/2017 11 08/21/2017 11 Creatinine (mg/dL) Date Value 08/26/2017 1.40 (H) 08/25/2017 1.16 (H) 08/21/2017 0.95 WBC (k/uL) Date Value 08/26/2017 2.07 (L) 08/25/2017 2.94 (L) 08/21/2017 3.22 (L) Vancomycin Levels: Vancomycin, result (ug/mL) Date Value 03/19/2017 23.9 (H) 03/17/2017 19.7 DAYSI RODRIGUEZ, CONFERENCE TRANSLATOR Dominique Wright MD 08/26/2017 2:25 PM Addendum INFECTIOUS DISEASE CONSULT NOTE Date: August 26, 2017 Patient Name: Paloma Cannon Asked to see patient by Dr. Manriquez for blood stream infection. My recommendations will be communicated back by way of shared medical record. HISTORY OF PRESENT ILLNESS Ms. Nelli Cannon is a 27F with antiphospholipid syndrome?(on plasmapheresis- PLEX every other week, prednisone?5/10mg) with related PE AND?DVT 09/2013 (s/p b/l iliac v. stents and Endoglix AFX endograft at the inferior vena caval bifurcation) on warfarin, extensive thrombectomy at outside hospital for right lower extremity and IVC thrombus. Has experienced DAH x 5 and HFpEF2/2 intolerance to Rituximab. She has a history of MRSE BSI attributed to tunneled catheter treated with 6 weeks of iv daptomycin in 02/02. Had been changed from vancomycin due to possible nephrotoxicity though other possible causes were present. She presented 08/25 to ER with fevers up to 103 F, nausea and vomiting x 6. In ER her temp was 103.2, tachycardic 111, BP 140/58, on her home O2 requirements which are 2 lt NC, breathing with no distress. Lab work here was significant for pancytopenia WBC 2.9 K, Hb 8.8, Plt 72k, hyponatremia 135, K 3.6, CAPRICE 1.16, Hypocalcemia and normal LFTs. Her lactate was 0.8. Two sets of BCx were drawn. She had a negative flu test. Her CXR was unremarkable. She received 1 lt of NS, one dose of Vancomycin and Zosyn and was transferred to the floor for further management. On arrival, she was in no acute distress, still having subjective fevers, mild ches discomfort from vomiting ans burning with urination. She denied chest pain, cough, SOB, abdominal pain, changes in bowel movements, pain around Samantha cath, rashes, no headaches, no bloody stools. Blood cultures from 08/25 are growing GPC pairs, chains. Awaiting Varigene data on initial identification. Stool positive for C diff. PAST MEDICAL HISTORY Diagnosis Date - (HFpEF) heart failure with preserved ejection fraction (HCC) 02/20/2016 HFpEF w last EF 50-55% On Torsemide, coreg, hydralazine and imdur at home No signs of acute exacerbation on admission Plan: -Continue home medications - Anasarca 11/29/2013 - Anemia 03/10/2015 Chronic microcytic anemia. 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 Thrombosis, and Diffuse Alveolar Hemorrhage. On Warfarin and PLEX (Twice Weekly)? Plan: -Warfarin 5mg qday-holding for planned EGD on 01/11 d/t supra therapeutic INR -Cont. PO Prednisone 10mg MWFS and 5mg TTS -Pantoprazole for GI PPx of Above -Apharesis was supposed to be yesterday, will contact plasmapheresis team on recommendations - Antiphospholipid syndrome (HCC) - Catastrophic Antiphospholipid antibody syndrome 11/09/2013 - Cholelithiasis 01/11/2017 Likely cause of recent pancreatitis. Plan: Per general surgery, no acute surgical intervention at this time. Will await results of EGD. If active gastritis, favor outpatient cholecystectomy. If no active gastritis on EGD, plan for cholecystectomy this admission. 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 Social History Main Topics Smoking status: Never Smoker Smokeless status: Never Used Alcohol use: No Drug use: No Sexual activity: Not Currently IMMUNIZATION HISTORY Immunization History Administered Date(s) Administered Influenza Seasonal Inj Quadrivalent Age 3+ Pres Free 05/03/2016 04/27/2017 Influenza Vaccine, Split-Non Spec 04/09/2015 Pneumococcal-13 Vac Conjugate 10/28/2014 MEDICATIONS Medications reviewed. Current antibiotics include: Vancomycin zosyn Current Facility-Administered Medications: vancomycin dosing and monitoring per pharmacy OTHER As Directed vancomycin 1.5 g in D5W 250 mL (VANCOCIN) 0.015 g/kg/dose INTRAVENOUS q 12 HR warfarin 5 mg tab(s) (COUMADIN) 5 mg ORAL DAILY - WARFARIN magnesium sulfate in water 2 g in sterile water 50 ml 2 g INTRAVENOUS ONCE potassium chloride ER 20 mEq tab(s) (K-DUR, KLOR-CON) 20 mEq ORAL ONCE prochlorperazine 5 mg injection (COMPAZINE) 5 mg INTRAVENOUS q 6 H PRN sulfamethoxazole-trimethoprim 800-160 mg 1 tablet (BACTRIM DS,SEPTRA DS) 1 tablet ORAL carvedilol 25 mg tab(s) (COREG) 25 mg ORAL BID w MEALS gabapentin 300 mg cap(s) (NEURONTIN) 300 mg ORAL q 8 H predniSONE 10 mg tab(s) (DELTASONE) 10 mg ORAL DAILY 0.9% NaCl 10 mL 10 mL INTRAVENOUS q 12 H 0.9% NaCl 20 mL 20 mL INTRAVENOUS PRN ondansetron (PF) 4 mg injection (ZOFRAN) 4 mg INTRAVENOUS q 6 H PRN warfarin order for discharge OTHER PRN amLODIPine 5 mg tab(s) (NORVASC) 5 mg ORAL DAILY piperacillin-tazobactam 3.375 g in dextrose (iso-osmotic) 50 mL (ZOSYN) 3.375 g INTRAVENOUS q 6 HR cyclophosphamide 200 mg cap(s) (CYTOXAN) 200 mg ORAL DAILY Current Facility-Administered Medications: vancomycin dosing and monitoring per pharmacy OTHER As Directed vancomycin 1.5 g in D5W 250 mL (VANCOCIN) 0.015 g/kg/dose INTRAVENOUS q 12 HR warfarin 5 mg tab(s) (COUMADIN) 5 mg ORAL DAILY - WARFARIN magnesium sulfate in water 2 g in sterile water 50 ml 2 g INTRAVENOUS ONCE potassium chloride ER 20 mEq tab(s) (K-DUR, KLOR-CON) 20 mEq ORAL ONCE prochlorperazine 5 mg injection (COMPAZINE) 5 mg INTRAVENOUS q 6 H PRN sulfamethoxazole-trimethoprim 800-160 mg 1 tablet (BACTRIM DS,SEPTRA DS) 1 tablet ORAL - carvedilol 25 mg tab(s) (COREG) 25 mg ORAL BID w MEALS gabapentin 300 mg cap(s) (NEURONTIN) 300 mg ORAL q 8 H predniSONE 10 mg tab(s) (DELTASONE) 10 mg ORAL DAILY 0.9% NaCl 10 mL 10 mL INTRAVENOUS q 12 H 0.9% NaCl 20 mL 20 mL INTRAVENOUS PRN ondansetron (PF) 4 mg injection (ZOFRAN) 4 mg INTRAVENOUS q 6 H PRN warfarin order for discharge OTHER PRN amLODIPine 5 mg tab(s) (NORVASC) 5 mg ORAL DAILY piperacillin-tazobactam 3.375 g in dextrose (iso-osmotic) 50 mL (ZOSYN) 3.375 g INTRAVENOUS q 6 HR cyclophosphamide 200 mg cap(s) (CYTOXAN) 200 mg ORAL DAILY ALLERGIES Allergen Reactions - Rhubarb Rash, Hives - Heparin Other: See Comments Per patient history of HIT - was on angiomax however then took l fondaparinux for bridging to coumadin. - Iv Contrast [Iodine] Other: See Comments shuts kidneys down per patient - Rituximab Other: See Comments Elevated cardiac enzymes REVIEW OF SYSTEMS: Review as systems as outlined in HPI. All other pertinent systems reviewed and negative. Examination: BP 120/55 Pulse 107 Temp 37.9 ?C (100.3 ?F) (Temporal Artery) Resp 16 Ht 160 cm (5' 3) Wt 92.5 kg (203 lb 14.8 oz) SpO2 94% BMI 36.12 kg/m2 Alert, oriented, appears ill, not in distress HEENT no conjunctival lesions, no thrush NECK supple, no LAD CHEST clear, right samantha catheter entry site benign, left pheresis catheter benign appearing HEART regular, no mRG ABDO soft, nontender, mild distension EXTREM bilateral LE symmetric erythema of lower legs to ankle, blanches to pressure, nontender Laboratory data: WBC 2.07, HCT 25, PLTs 61, ALC 0.18 Microbiology data: 08/25 blood x 2 GPC prs/chains 08/25: stool C diff Imaging data: CXR reviewed, no infiltrates ASSESSMENT: 1. Antiphospholipid syndrome?(on plasmapheresis- PLEX every other week, prednisone?5/10mg) 2. 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 stents and Endoglix AFX endograft at the inferior vena caval bifurcation) on warfarin, extensive thrombectomy at outside hospital for right lower extremity and IVC thrombus. 3. DAH x 5 4. HFpEF due to Rituximab. 5. MRSE BSI attributed to tunneled catheter treated with 6 weeks of iv daptomycin in 02/02. Admitted with fever and diarrhea. Found to have recurrence of C diff and GPCs in pairs/chains from blood cultures. Awaiting Varigene identification of organism (enterococcus vs streptococcus species). Suspected primary line infection despite GI symptoms. LE erythema chronic per patient. RECOMMENDATIONS: 1. Continue Zosyn 2. Can stop vancomycin if Staph not identified by Varigene 3. If GPC chains is identified as VRE by Varigene, would add daptomycin 8 mg/kg/d 4. Start flagyl 500 mg TID for C diff 5. No current urgency to remove line, will determine based on type of organism grown. 6. Repeat blood cultures Signature: Dominique Wright MD August 26, 2017 2:20 p.m. Previous Version Kwesi Manriquez MD 08/27/2017 11:22 AM Signed Department of Internal Medicine Service: [facility] Progress Note Date: August 27, 2017 / 8:22 AM Patient Name: Paloma Cannon Subjective - no acute issues overnight - remains afebrile, blood pressures a little low this AM (98/46), gave another 1L NS - hemoglobin 7.1, will send type + screen - f/u AM labs, cultures, and echo Objective Vitals: BP 121/53 Pulse 76 Temp (Src) 97.7 (Oral) Resp 16 Ht 5' 3 (1.60m) Wt 210 lb 5.1 oz (95.4kg) SpO2 100% BMI 37.27 kg/(m2). Physical Exam: General: AANDO, in no apparent distress HEENT: normocephalic, atraumatic Heart: RRR, no murmurs, strong peripheral pulses Lungs: CTAB Abdomen: soft, non-tender, non-distended Skin: warm, well perfused, no rashes, mild bilateral LE pitting edema (chronic as per patient) Musculoskeletal: no gross abnormalities Neuro: able to move all extremities Inpatient Medications: Current Facility-Administered Medications: vancomycin dosing and monitoring per pharmacy OTHER As Directed Jcarlos (Res) MD Natalie vancomycin 1.5 g in D5W 250 mL (VANCOCIN) 0.015 g/kg/dose INTRAVENOUS q 12 HR Jose Manuel (Res) Serrato 1.5 g at 08/26/17 1834 diphenhydrAMINE 25 mg in D5W 50 mL 25 mg INTRAVENOUS PRN Lorna (Res) Gandhy 25 mg at 08/27/17 0818 prochlorperazine 5 mg injection (COMPAZINE) 5 mg INTRAVENOUS q 4 H PRN Lorna (Res) Gandhy 5 mg at 08/26/17 2047 metroNIDAZOLE 500 mg PREMIX piggyback (FLAGYL) 500 mg INTRAVENOUS q 8 H Lorna (Res) Gandhy 500 mg at 08/27/17 0502 cyclophosphamide 200 mg cap(s) (CYTOXAN) 200 mg ORAL DAILY Kwesi K [place] 200 mg at 08/26/17 1731 sulfamethoxazole-trimethoprim 800-160 mg 1 tablet (BACTRIM DS,SEPTRA DS) 1 tablet ORAL -- Jcarlos (Haritha) MD Natalie 1 tablet at 08/25/17 223 gabapentin 300 mg cap(s) (NEURONTIN) 300 mg ORAL q 8 H Jcarlos Estrada MD 300 mg at 08/27/17 0502 predniSONE 10 mg tab(s) (DELTASONE) 10 mg ORAL DAILY Jcarlos Estrada MD 10 mg at 08/26/17 1256 0.9% NaCl 10 mL 10 mL INTRAVENOUS q 12 H Jcarlos Estrada MD 10 mL at 08/26/172000 0.9% NaCl 20 mL 20 mL INTRAVENOUS PRN Jcarlos Estrada MD warfarin order for discharge OTHER PRN Jcarlos Estrada MD piperacillin-tazobactam 3.375 g in dextrose (iso-osmotic) 50 mL (ZOSYN) 3.375 g INTRAVENOUS q 6 HR Jcarlos Estrada MD 3.375 g at 08/27/17 0114 Assessment/Plan The patient is a 27 year old female with a Gram-positive bacteremia in the setting of C difficile Colitis, pancytopenia, and CAPRICE. 1.) Gram-positive bacteremia Presented with fever + nausea/vomiting, 2/2 blood cultures from 08/25 showed Gram-positive cocci in pairs + chains, currently afebrile and hemodynamically stable Plan: - vancomycin + piperacillin-tazobactam - follow blood cultures - follow urine cultures 2.) C difficile Colitis Multiple bouts of diarrhea on presentation, C difficile assay positive Plan: - metronidazole - contact precautions 3.) Pancytopenia Unclear etiology, possibly related to medications (cyclophosphamide or bactrim she's been taking for PJP prophylaxis), reticulocyte count 1.5% (inadequate bone marrow compensation) Plan: - monitor blood counts - f/u CMV + fungal battery - type and screen - will consent for blood - consult Hematology-Oncology 4.) CAPRICE Elevated Cr (baseline about 1), UA was clean with no signs of infection, FENa < 1%, likely pre-renal from dehydration 2/2 diarrhea with hypotension from bacteremia Plan: - strict IANDOs - avoid nephrotoxins - avoid NSAIDS + iv contrast - iv fluids as necessary Chronic Problems: 1. Anti-phospholipid Syndrome 2. Hypertension 3. Heparin-induced Thrombocytopenia 4. 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 GERD Other: Diet: Regular GI AND DVT Prophylaxis: warfarin PT/OT Disposition Recs: N/A Code Status: Full code Case to be discussed with staff. Yasmine Lovell MD Internal Medicine, PGY-1 Pager: [phone] *Note: On Weekdays from 5pm to 7am and Weekends from 3pm to 7am, please page the on-call pager ([phone]).* DR. FRED STONE, SR. HOSPITAL STAFF PHYSICIAN NOTE OF PERSONAL INVOLVEMENT IN CARE: Patient seen with Dr. Russo. I have reviewed the progress note obtained and documented by the resident and I personally participated in the fernandes components. I have discussed the case and management of the patient's care. The following comments revise or confirm relevant fernandes components of the note. This is a very pleasant 27 year old WF with known Catastrophic APLA syndrome with recurrent lower extremity DVT/PE since 2013 (s/p b/l iliac v. stents and Endoglix AFX endograft at the inferior vena caval bifurcation); renal vein thrombosis; on Cytoxan; coumadin; h/o HIT; on iv Plasmapheresis every other week (intolerance to Ritiximab); history of Diffuse alveolar hemorrhage x5 episodes; CKD and HfPEF admitted with high grade fevers; dry heaving followed by watery diarrhea. Initial workup showed relative Pancytopenia which is rather new; normal CXR; Blood cultures: 1/2 GPCs in pairs and chains from central line. No erythema noted around her R subclavian catheter. CXR reviewed. Peripheral smear awaited; Retic count adequate. She was initiated on iv Vanco and Zosyn and iv fluids. Repeat blood cultures sent; stool returned +ve for C diff; flagyl initiated. Appreciate ID input. Per review of records; cytoxan was started in Jun 2017; her peripheral blood cell counts were normal till end of Jul 2017. She defervecsed but her pancytopenia has worsened. Consult hematology regarding holding cytoxan for now. Gentle iv fluids while serum creatinine is still rising; would hold torsemide day to day; while reassessing ongoing GI losses. Adjust Vanco and Zosyn to serum creatinine. INR 2.2 at admission; 3.5 today while on home dose of coumadin. Patient reassured. Care Coordination The majority of the visit was spent counseling and/or coordinating care for the patient. Przt-va-iaxe time was [address] Simmons assumes service tomorrow. Kwesi Manriquez MD Beeper Number: [id number]. Date of Service: August 27, 2017 Time of Service: 11.20 AM. Previous Version Edel Melody Berg RD LD 08/27/2017 3:22 PM Signed NUTRITION THERAPY INITIAL ASSESSMENT SERVICE DATE: 08/27/2017 SERVICE TIME: 3:00 RECOMMENDED MALNUTRITION DIAGNOSIS: SEVERE PROTEIN-CALORIE MALNUTRITION In the context of Chronic Illness or Injury based on: Unintentional Weight Loss: >7.5% in 3 months Insufficient Energy Intake: Less than 75% energy intake compared to estimated needs for greater than or equal to 1 month NUTRITION CARE PLAN: Problem, Etiology and Signs/Symptoms: Suboptimal protein/energy intake related to predicted reqirements as evidenced by weight loss, fat and muscle loss and poor intakes. 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 Experiencing terrible taste changes. Interested in a G2 gatorade for something more to drink. No problem chewing, swallowing. Currently no nausea, vomiting, diarrhea, constipation or reflux noted. States spouse brings some foods such as soft pretzel. Discussed snack, menu options which were currently declined. Patient will continue to select from the house menu stating: I just need to work through the different menu items and with what I can eat. Present Diet Order: Regular Enteral Access: 0 Nutritional Intake: 08/25- 0 08/26- 25% supper only GI symptoms: anorexia Abdominal Exam: abdomen is soft Is the patient having any pain that is interfering with oral/enteral intake? No ANTHROPOMETRICS Height: 160 cm (5' 3) Admission Weight: 92.5 kg (204 lb) Current Weight: 95.4 kg (210 lb 5.1 oz) Body mass index is 37.26 kg/(m2). class 2 obesity HT/WT/BMI HEIGHT WEIGHT BODY MASS INDEX 08/22/2016 ? 115.032 kg 44.92 01/04/2017 ? 117 kg ? 01/07/2017 ? ? 49.79 02/10/2017 ? 105.3 kg 41.12 02/21/2017 ? 105.235 kg 41.1 03/09/2017 ? ? 46.28 06/08/2017 ? 110.3 kg ? 06/20/2017 5' 2.992 110 kg 42.97 06/27/2017 ? 106.595 kg 41.64 07/11/2017 ? 106.595 kg 41.64 08/21/2017 ? 92.715 kg 36.22 08/25/2017 5' 3 92.5 kg 36.12 ? weight loss : 19.6 % in 1 year 12.2 % in 6 months 16.2% in 3 months ? Resting Metabolic Rate: 1625 Estimated kilocalorie needs: 2113 kilocalories determined by Morris-St. Jeor x 1.3 Estimated protein needs:93-112 grams determined by 1-1.2 grams/kg Current weight Estimated fluid needs: 2113 milliliters based on 1 mL per kcal ? allergy to rhubarb noted. NUTRITION FOCUSED PHYSICAL EXAM: Subcutaneous Fat Loss Orbital Unable to determine at this time Triceps Moderate Mid-axillary at the iliac crest No fat loss Muscle Loss Locations: Temporalis Mild Pectoralis Mild Deltoids Mild Interosseous Mild Latissimus dorsi, trapezius Mild Quadriceps Unable to determine at this time Gastrocnemius Unable to determine at this time Potential micronutrient deficiency revealed in: skin Edema: Yes Lower extremities Severe 3 - 4 Ascites: No Assessment of Functional Status: Unable to assess Temperature Max in 24 hours: Temp (24hrs), Av.7 ?C (98 ?F), Min:36.2 ?C (97.2 ?F), Max:37.9 ?C (100.3 ?F) BP 121/53 Pulse 76 Temp 36.5 ?C (97.7 ?F) (Oral) Resp 16 Ht 160 cm (5' 3) Wt 95.4 kg (210 lb 5.1 oz) SpO2 100% BMI 37.26 kg/m2 Recent Labs 08/27/17 0506 08/25/17 1730 GLUC 96 < > 67* BUN 17 < > 11 CREAT 1.55* < > 1.16* NA 133* < > 135* K 3.9 < > 3.6* CHLOR 98 < > 100 CO2 22 < > 22 ALB -- -- 3.3* HB 7.1* < > 8.8* HCT 22.9* < > 28.7* WBC 1.47* < > 2.94* P 4.7 < > -- MG 2.2 < > -- < > = values in this interval not displayed. Potential Signs of Inflammation: hypoalbuminemia ALLERGIES Allergen Reactions - Rhubarb Rash, Hives - Heparin Other: See Comments Per patient history of HIT - was on angiomax however then took l fondaparinux for bridging to coumadin. - Iv Contrast [Iodine] Other: See Comments shuts kidneys down per patient - Rituximab Other: See Comments Elevated cardiac enzymes Current Facility-Administered Medications: vancomycin dosing and monitoring per pharmacy OTHER As Directed vancomycin 1.5 g in D5W 250 mL (VANCOCIN) 0.015 g/kg/dose INTRAVENOUS q 12 HR diphenhydrAMINE 25 mg in D5W 50 mL 25 mg INTRAVENOUS PRN prochlorperazine 5 mg injection (COMPAZINE) 5 mg INTRAVENOUS q 4 H PRN metroNIDAZOLE 500 mg PREMIX piggyback (FLAGYL) 500 mg INTRAVENOUS q 8 H cyclophosphamide 200 mg cap(s) (CYTOXAN) 200 mg ORAL DAILY sulfamethoxazole-trimethoprim 800-160 mg 1 tablet (BACTRIM DS,SEPTRA DS) 1 tablet ORAL MO-WE-FR gabapentin 300 mg cap(s) (NEURONTIN) 300 mg ORAL q 8 H predniSONE 10 mg tab(s) (DELTASONE) 10 mg ORAL DAILY 0.9% NaCl 10 mL 10 mL INTRAVENOUS q 12 H 0.9% NaCl 20 mL 20 mL INTRAVENOUS PRN warfarin order for discharge OTHER PRN piperacillin-tazobactam 3.375 g in dextrose (iso-osmotic) 50 mL (ZOSYN) 3.375 g INTRAVENOUS q 6 HR MNT Billing Type: Initial Assess/15 min 4 units SIGNATURE: Edel Berg RD LD PATIENT NAME: Paloma Cannon DATE: August 27, 2017 TIME: 9:11 AM PAGER: [phone] Thuy Mills Pharmacist 08/27/2017 12:28 PM Signed PHARMACY WARFARIN EDUCATION Patient Name: Paloma Cannon Account #: Data Unavailable Admission Date: 08/25/2017 5:15 PM Date of Contact: August 27, 2017 Time of Contact: 11:23 AM Patient new to warfarin? No: Previous (home) dosage: 7.5 mg Sat and Sun; 5 mg Mon,, Wed, Th, Fri Outpatient follow-up plan: Pt reports she gets her INR checked at Dr. Guillaume Fuller' office ([facility] physician) with his [employer]CH[employer] HELPER Magdalena Indication for warfarin: deep vein thrombosis (DVT) Target INR range: 2.0 - 3.0 (Target 2.5) Patient received full warfarin education. Initial patient education included: * Reason for taking warfarin * How warfarin works * What the INR test is, frequency of testing, and the importance of monitoring warfarin with scheduled PT/INR blood draws or finger sticks * Information about plans to monitor warfarin post-discharge was reviewed * When to take warfarin and what to do if a dose is missed * Identifying tablet(s) and to notify the doctor/anticoagulation clinic if there is a change in tablet color, shape, or markings * Drug interactions (Rx, OTC, herbal) and importance of notifying the doctor/anticoagulation clinic with any changes. * Do not take or discontinue any medication or over the counter medication except on the advice of the physician or pharmacist because certain medications can affect the PT/INR. * Potential duration of therapy * Signs/symptoms of bleeding and what to do if they occur because warfarin increases the risk of bleeding * Precautionary measures to decrease trauma/bleeding * Signs/symptoms of thrombosis and what to do if they occur * Need to limit or avoid EtOH consumption * Dietary considerations discussing that a ?consistent amount? of foods with vitamin K rather than avoidances should be advised and to avoid major changes in dietary habits, or notify health professional before changing habits because diet can affect the PT/INR * Carrying identification * Importance of notifying healthcare provider and [facility] when hospitalizations occur and when another healthcare provider has asked them to stop/hold warfarin before any procedure * Importance of notifying all healthcare providers they are taking warfarin * Use of control measures if applicable * The importance of taking warfarin as instructed and the potential ramifications of non- compliance were explained to the patient. The patient was provided ?Understanding the Anticoagulant Medication Warfarin? education booklet which includes the following : compliance Issues, dietary advice, follow-up with physician, follow- up monitoring, potential adverse drug reactions and interactions. READINESS TO LEARN COGNITIVE ABILITY: Alert and oriented MOTIVATION TO LEARN: Interested FAMILY SUPPORT: Unable to assess - Family not present INSTRUCTION PROVIDED TO: Patient PATIENT LEARNS BEST BY: Unable to Assess FACTORS AFFECTING LEARNING: Unable to assess PHYSICAL LIMITATIONS AFFECTING LEARNING: None LEARNING RESPONSE DIAGNOSIS: SEE INDICATION(S) ABOVE PATIENT/FAMILY RESPONSE: Verbalizes understanding of: The signs and symptoms of a worsening condition that warrant a call to the physician. The correct actions to take to manage symptoms associated with his/her disease/illness. The physical restrictions and recommendations after discharge from the hospital. Accurate knowledge of prescribed medication prior to discharge. The correct action to take if medication dose is missed. The side effects associated with the medication that warrant a call to the physician. Post discharge follow up instruction Diet / weight monitoring METHOD OF INSTRUCTION: Teach Back asked patient questions to gauge understanding of warfarin SUPPLEMENTAL MATERIAL PROVIDED: Pt refused warfarin booklet, stating she has 12 at home FURTHER RECOMMENDATIONS (if any) none EVIDENCE OF LEARNING Outcomes met: Describes/able to restate information Outpatient Follow-up: Pt reports getting INR checked at Dr. Guillaume Fuller' office of [facility] with his GENERATION MECHANIC HELPER Magdalena Patient extremely pleasant and well-versed on warfarin. States she has been on warfarin since ~2013 Anahi Do (Vulcanized Fiber Unit Operator) Thuy [place], PharmD [id number] Previous Version Dominique Rios DO 08/27/2017 4:09 PM Addendum Hematology Consult Note PATIENT NAME: Paloma Martinez CLINIC NO.: [id number] REQUESTING SERVICE: Internal Medicine History of Present Illness: Paloma is well known to the hematology service. She has CAPS syndrome and is managed by Dr Andujar of Hematology, Dr Claudio of Apheresis and by Vascular service. She also follows with Dr Alicea of pulmonary. She has been on chronic steroids and twice monthly PLEX to control her autoantibodies. She has history of multiple thromboses, has history of HIT, and is maintained on coumadin. She has frequent admissions, currently admitted with pancytopenia with mild neutropenia, c difficile and sepsis. Given history of DAH and multiple admissions for hemoptysis she was recently started on Cytoxan 200mg daily - this was started in late July 2017. She reports that she had a one day episode of malaise and fever. Her temperature at home was as high as 103F. Upon admission she has been placed on broad spectrum antibiotics and Infectious Disease is following her. Over the past 24 hours she has had a defervesence of fever. ID on cultures is Enterococcus faecalis. She also has C difficile. On ROS Feeling better than at time of admission Still with some weakness Denies mucositis Having diarrhea quite frequently still No blood in stool No abdominal pain but has had a poor appetite lately + nausea and vomiting on presentation has resolved No chest pain or SOB Still with some alopecia No hemoptysis ALLERGIES Allergen Reactions - Rhubarb Rash, Hives - Heparin Other: See Comments Per patient history of HIT - was on angiomax however then took l fondaparinux for bridging to coumadin. - Iv Contrast [Iodine] Other: See Comments shuts kidneys down per patient - Rituximab Other: See Comments Elevated cardiac enzymes PAST MEDICAL HISTORY Diagnosis Date - (HFpEF) heart failure with preserved ejection fraction (HCC) 02/20/2016 HFpEF w last EF 50-55% On Torsemide, coreg, hydralazine and imdur at home No signs of acute exacerbation on admission Plan: -Continue home medications - Anasarca 11/29/2013 - Anemia 03/10/2015 Chronic microcytic anemia. 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 Thrombosis, and Diffuse Alveolar Hemorrhage. On Warfarin and PLEX (Twice Weekly)? Plan: -Warfarin 5mg qday-holding for planned EGD on 01/11 d/t supra therapeutic INR -Cont. PO Prednisone 10mg MWFS and 5mg TTS -Pantoprazole for GI PPx of Above -Apharesis was supposed to be yesterday, will contact plasmapheresis team on recommendations - Antiphospholipid syndrome (HCC) - Catastrophic Antiphospholipid antibody syndrome 11/09/2013 - Cholelithiasis 01/11/2017 Likely cause of recent pancreatitis. Plan: Per general surgery, no acute surgical intervention at this time. Will await results of EGD. If active gastritis, favor outpatient cholecystectomy. If no active gastritis on EGD, plan for cholecystectomy this admission. 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 - PAST SURGICAL HISTORY OF Adenoidectomy - PICC LINE INSERT/CONSULT 11/29/2013 - PICC LINE INSERT/CONSULT 03/10/2015 - PICC LINE INSERT/CONSULT 02/20/2016 Social History Marital status: Spouse name: Years of education: Number of children: Occupational History Occupation 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 Social History Main Topics Smoking status: Never Smoker Smokeless status: Never Used Alcohol use: No Drug use: No Sexual activity: Not Currently FAMILY HISTORY Problem Relation Age of Onset - Breast Cancer Mother spine BRCA neg - Ovarian cyst [OTHER] Mother - ovarian cyst [OTHER] Sister - Thyroid No Family History BP 105/59 Pulse 78 Temp 36.7 ?C (98.1 ?F) (Temporal Artery) Resp 16 Ht 160 cm (5' 3) Wt 95.4 kg (210 lb 5.1 oz) SpO2 99% BMI 37.26 kg/m2 Patient is alert and oriented; pale Oropharynx clear; neck supple; no macroglossia; no exudates Heart is regular without murmurs Lungs are clear bilaterally Anterior chest wall?she has a pheresis catheter in her left anterior chest wall and an access catheter in her right anterior chest wall. Abdomen is soft and nontender without guarding or organomegaly No significant edema; normal pulses; no asymmetry She moves extremities ?4 and there are no focal neurologic deficits Labs reviewed: Component Culture Latest Ref Rng AND Units 08/25/2017 5:40 PM Enterococcus faecalis (A) . . . 08/25/2017 5:40 PM Staphylococcus epidermidis (A) Component Latest Ref Rng AND Units 08/26/2017 C. difficile PCR Positive for C. difficile toxin by PCR (A) Component Latest Ref Rng AND Units 08/27/2017 WBC 3.70 - 11.00 k/uL 1.47 (L) RBC 3.90 - 5.20 m/uL 2.75 (L) Hemoglobin 11.5 - 15.5 g/dL 7.1 (L) Hematocrit 36.0 - 46.0 % 22.9 (L) MCV 80.0 - 100.0 fL 83.3 MCH 26.0 - 34.0 pG 25.8 (L) MCHC 30.5 - 36.0 g/dL 31.0 RDW-CV 11.5 - 15.0 % 20.7 (H) Platelet Count 150 - 400 k/uL 56 (L) MPV 9.0 - 12.7 fL <<DO NOT REPORT>> Neut% % 83.1 Abs Neut (ANC) 1.45 - 7.50 k/uL 1.22 (L) Lymph% % 7.8 Abs Lymph 1.00 - 4.00 k/uL 0.11 (L) [place]% % 3.9 Abs [place] <0.87 k/uL 0.06 Eosin% % 2.6 Abs Eosin <0.46 k/uL 0.04 Baso% % 2.6 Abs Baso <0.11 k/uL 0.04 NRBC 0 /100 WBC 1 (H) Anisocytosis Present Ovalocytes Few Polychromasia Slight RBC Fragments Few Tear Drop Few Platelet Estimate Platelet estimate decreased Diff Type Manual Diff Glucose 74 - 99 mg/dL 96 BUN 7 - 21 mg/dL 17 Creatinine 0.58 - 0.96 mg/dL 1.55 (H) Sodium 136 - 144 mmol/L 133 (L) Potassium 3.7 - 5.1 mmol/L 3.9 Chloride 97 - 105 mmol/L 98 CO2 22 - 30 mmol/L 22 Anion Gap 9 - 18 mmol/L 13 Calcium 8.5 - 10.2 mg/dL 7.4 (L) eGFR- 48 eGFR-All Other Races . 40 Impression/Plan: Paloma is a earl 27 year old female with CAPS on every other week Apheresis and recently started on Cytoxan 200mg daily for recurrent DAH. She presents now with pancytopenia, mild neutropenia and fever. I discussed with the patient that certainly, in review of her labs, I suspect that the Cytoxan 200 mg daily is what has caused her pancytopenia and mild neutropenia. We will have to discontinue this. She may be able to tolerate a lower dose in the future given for 3 weeks with 1 week off to allow for marrow recovery, but certainly at this time we would recommend holding it. Given that she is not absolutely neutropenic we would probably hold off on giving Neupogen. I have discussed this with Dr. Wright of infectious disease and she is in agreement. If patient's ANC falls below 500 with give one dose of Neupogen daily until the ANC is greater than 500 and then intermittently as needed. Question will be whether or not the patient's lines for a pheresis and access need to be removed and then replaced after a period of time that cultures are negative. When I spoke to Dr. Wright she was not sure yet at that point what we would recommend because the bacteremia had not yet been identified. We will have to discuss with her regarding recommendations for removal of lines. Plan: ? Stop Cytoxan ? If ANC falls less than 500 give Neupogen 480 ?g ?1 and then daily until ANC is greater than 500 ? I will make Dr. Andujar, Dr Claudio and Dr Alicea aware of patient's admission and will arrange for close follow up. Following with you and please call or page with questions. Dominique Rios, Hematology Consult Service Pager [phone] Previous Version Dominique Wright MD 08/27/2017 2:15 PM Signed INFECTIOUS DISEASE CONSULT SERVICE PROGRESS NOTE Date: August 27, 2017 Patient Name: Paloma Cannon Interval history: Feeling better overall. No fever, less diarrhea. MEDICATIONS Current Facility-Administered Medications: NaCl 0.9% iv infusion 60 mL/hr INTRAVENOUS CONTINUOUS vancomycin dosing and monitoring per pharmacy OTHER As Directed vancomycin 1.5 g in D5W 250 mL (VANCOCIN) 0.015 g/kg/dose INTRAVENOUS q 12 HR diphenhydrAMINE 25 mg in D5W 50 mL 25 mg INTRAVENOUS PRN prochlorperazine 5 mg injection (COMPAZINE) 5 mg INTRAVENOUS q 4 H PRN metroNIDAZOLE 500 mg PREMIX piggyback (FLAGYL) 500 mg INTRAVENOUS q 8 H sulfamethoxazole-trimethoprim 800-160 mg 1 tablet (BACTRIM DS,SEPTRA DS) 1 tablet ORAL gabapentin 300 mg cap(s) (NEURONTIN) 300 mg ORAL q 8 H predniSONE 10 mg tab(s) (DELTASONE) 10 mg ORAL DAILY 0.9% NaCl 10 mL 10 mL INTRAVENOUS q 12 H 0.9% NaCl 20 mL 20 mL INTRAVENOUS PRN warfarin order for discharge OTHER PRN piperacillin-tazobactam 3.375 g in dextrose (iso-osmotic) 50 mL (ZOSYN) 3.375 g INTRAVENOUS q 6 HR Current antibiotics: Vancomycin zosyn Examination: BP 105/59 Pulse 78 Temp 36.7 ?C (98.1 ?F) (Temporal Artery) Resp 16 Ht 160 cm (5' 3) Wt 95.4 kg (210 lb 5.1 oz) SpO2 99% BMI 37.26 kg/m2 Alert, oriented, appears ill, not in distress HEENT no conjunctival lesions, no thrush NECK supple, no LAD CHEST clear, right samantha catheter entry site benign, left pheresis catheter benign appearing HEART regular, no mRG ABDO soft, nontender, mild distension EXTREM bilateral LE symmetric erythema of lower legs to ankle, blanches to pressure, nontender ?? Laboratory data: WBC 2.07, HCT 25, PLTs 61, ALC 0.18 ? Microbiology data: 08/26: blood x 2 NGTD 08/25 blood x 2 GPC prs/chains 08/25: stool C diff ? Imaging data: CXR reviewed, no infiltrates ? ASSESSMENT: 1. Antiphospholipid syndrome?(on plasmapheresis- PLEX every other week, prednisone?5/10mg) 2. 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 stents and Endoglix AFX endograft at the inferior vena caval bifurcation) on warfarin, extensive thrombectomy at outside hospital for right lower extremity and IVC thrombus. 3. DAH x 5 4. HFpEF due to Rituximab. 5. MRSE BSI attributed to tunneled catheter treated with 6 weeks of iv daptomycin in 02/02. ? Admitted with fever and diarrhea. Found to have recurrence of C diff and GPCs in pairs/chains from blood cultures. Growing enterococcus faecalis. Likely be to sensitive to ampicillin given response to therapy. Suspected primary line infection though GI source possible. UA not suggestive of urinary source. ? RECOMMENDATIONS: 1. Can change zosyn and vanco to ampicillin 2 gram Q 6 hours 2. Continue flagyl 500 mg TID for C diff 3. Consider CT abdomen/pelvis before making decision to remove line to ensure no alternative source. 4. No current urgency to remove line, will discuss tomorrow. Signature: Dominique Wright MD August 27, 2017 2:15 p.m. Darrell Ewing 08/28/2017 8:50 AM Signed ISOLATION NOTE Admission Date: 08/25/2017 Type of Isolation Recommended: Contact Precautions - Soap and Water (Brown Isolation Sign) Indication: Clostridium difficile Date Isolation Initiated: 08/27/2017 Anticipated Duration of Isolation: Until patient completes 10-14 days of antibiotic therapy for C. difficile and no longer symptomatic Type and Date of Positive Test(s): stool pos C.diff tox by PCR mt 08/26/2017 SIGNATURE: Darrell Ewing PATIENT NAME: Paloma Cannon DATE: August 28, 2017 TIME: 8:50 AM PAGER/CONTACT #: [phone] Infection Prevention after hours/weekend pager: [phone] Dary Jimenes, RN, RN 08/28/2017 10:26 AM Signed CARE MANAGEMENT: ASSESSMENT AND DISCHARGE PLAN SERVICE DATE: 08/28/2017 SERVICE TIME: 10:17 AM PRIMARY CARE PHYSICIAN: PEYTON ROGERS MD ADMISSION STATUS: Inpatient POTENTIAL DISCHARGE PLANS Home To Be Determined Patient/Cyanide Case Hardener Stated Goals: to return home Needs Prior to Discharge: To Be Determined Health Insurance: Medicare, Medicaid Living Arrangement: Home Lives With: Spouse Financial Resources: N/A Primary Contact: Extended Emergency Contact Information Primary Emergency Contact: Morteza Cannon Address: [address] [place] [address] OF [facility] Mobile Relation: Spouse Secondary Emergency Contact: Morgan Aiken Mobile Relation: Father Mother: Jane Aiken Supportive: Yes Other Important Patient Contacts: None CAREGIVER ASSESSMENT: Caregiver is ready, willing and able to meet the patient's needs as recommended by the inter-professional team? Yes Patient's transition needs and plan for meeting these needs: TBD, poss need for IV abx at DC Does the patient have an acute stroke diagnosis, or has the patient had a stroke during this admission? No ADVANCE DIRECTIVES: Does Patient Have Advance Directives? No, Patient refused Does Patient Have Concerns About Advance Directives? No PRIOR TO ADMISSION: Baseline Mental Status: Alert AND Oriented, Person, Place , Time and Situation Functional Status: Independent Does Patient Currently Receive Any Community Services or Home Care? None Equipment Prior to Admission: Oxygen 2L NC liters per minute HEALTH: Health Issues Impacting Discharge Plan: Chronic APS Health Literacy Issues: No PSYCHOSOCIAL: Is the Patient Psychosocially Complex? No Family/Patient Understanding of Illness/Diagnosis: Patient acknowledges understanding Medication Adherence: Do you forget to take your medications? I do not forget to take my medication Have you ever stopped taking medications because you felt worse? None of the time Have you ever taken less of your medication than what was prescribed by your doctor? None of the time In the past 3 months, have you had issues obtaining one or more of your medications? None of the time Are you interested in bedside delivery of your medications? Yes Food Concerns: In the Last Month, Have You had Trouble Getting Food? No trouble getting food During the Last Month, Have You Worried Whether Your Food Would Run Out Before You Had Enough Money to Buy More? No Psychosocial Needs: None UTILIZATION: Last Admission Date: Previous admit date: 06/08/2017 Is this Within the Past 30 days? No Has the Patient Been in a Jail Facility in the Past 30 days? N/A FREEDOM OF CHOICE EXPLAINED: N/A HANDOFF COMMUNICATION: Primary Care Physician: PEYTON ROGERS MD Per EMR HPI 27 year old F with h/o: - catastrophic anti-phospholipid antibody syndrome diagnosed in 2013 when she presented with PE/DVT needing extensive percutaneous thrombectomy of her IVC and lower extremity veins followed by placement of B/L?iliac venous?stents and an?endograft into her IVC (triple positive with + lupus anticoagulant, + [id number], and + anti-cardiolipin antibodies, she is on plasmapheresis every other week since '14 and is also on Prednisone 5 mg daily-now on chronic anticoagulation with Warfarin) - diffuse alveolar hemorrhage ( on Cytoxan 200 mg daily) - RONNIE - HFpEF - HTN - chronic kidney disease (but last Cr was 0.95 on 08/21/2017) She presented for fevers upto 103, chills and generalized fatigue which started in morning. No other s/s of cough, cold. Her last plasmapheresis was on 08/28. She has R and L subclavian lines which are used for this. In 03/2017 there was a concern for MALICK line related sepsis when she was d/c on COPAT with Daptomycin. She was also complaining of some burning with urination. No other s/s of nocturia, hematuria, frequency, urgency. When she presented to the ED, VS were consistent with Tm 102.1F, HR 111, BP 144/58. Blood cultures were drawn and she was given V and Z and transferred to [facility] for further management. Introduced myself to patient and explained the role of CM. Patient lives with spouse and states IPTA. Patient has L Chest Tunneled line for pharesis and Central line in R Chest. Patient is on 2LNC at home, [employer] is O2 supplier. Poss need for IV abx at DC. TCC/SW to follow DC needs/date TBD ? SIGNATURE: Dary Jimenes RN PATIENT NAME: Paloma Cannon DATE: August 28, 2017 TIME: 10:17 AM PAGER/CONTACT #: [phone] Justina Pollard PA-C 08/28/2017 2:53 PM Signed Brief hematology consult sign off note: Paloma is well known to the hematology service. She has CAPS syndrome and is managed by Dr Andujar of Hematology, Dr Claudio of Apheresis and by Vascular service. She also follows with Dr Alicea of pulmonary. She has been on chronic steroids and twice monthly PLEX to control her autoantibodies. She has history of multiple thromboses, has history of HIT, and is maintained on coumadin. She has frequent admissions, currently admitted with pancytopenia with mild neutropenia, c difficile and sepsis. Given history of DAH and multiple admissions for hemoptysis she was recently started on Cytoxan 200mg daily - this was started in late July 2017. She reports that she had a one day episode of malaise and fever. Her temperature at home was as high as 103F. Upon admission she has been placed on broad spectrum antibiotics and Infectious Disease is following her. Over the past 24 hours she has had a defervesence of fever. ID on cultures is Enterococcus faecalis. She also has C difficile. Component Latest Ref Rng AND Units 08/21/2017 08/26/2017 08/27/2017 08/28/2017 WBC 3.70 - 11.00 k/uL 3.22 (L) 2.07 (L) 1.47 (L) 2.58 (L) RBC 3.90 - 5.20 m/uL 3.50 (L) 3.12 (L) 2.75 (L) 3.06 (L) Hemoglobin 11.5 - 15.5 g/dL 8.8 (L) 7.9 (L) 7.1 (L) 7.9 (L) Hematocrit 36.0 - 46.0 % 28.0 (L) 25.7 (L) 22.9 (L) 25.2 (L) MCV 80.0 - 100.0 fL 80.0 82.4 83.3 82.4 MCH 26.0 - 34.0 pG 25.1 (L) 25.3 (L) 25.8 (L) 25.8 (L) MCHC 30.5 - 36.0 g/dL 31.4 30.7 31.0 31.3 RDW-CV 11.5 - 15.0 % 20.0 (H) 21.2 (H) 20.7 (H) 20.9 (H) Platelet Count 150 - 400 k/uL 97 (L) 61 (L) 56 (L) 82 (L) Impression: Pancytopenia and mild neutropenia likely secondary to cytoxan. ? Plan: -Continue holding cytoxan during this hospital stay. Do not resume at discharge, this can be decided during her outpatient visit with Dr. Alicea -If ANC falls less than 500 give Neupogen 480 mcg ?1 and then daily until ANC is greater than 500 -Hematology consult will sign off, please call us back with questions Discussed with JESSICA VargasC [phone] Geraldine Lazar (Oracle Specialist) 08/28/2017 11:58 AM Signed [facility] BEDSIDE DELIVERY SURVEY 1. Patient to use [facility] Bedside Delivery - YES 2. If fax, patient would like us to fax prescriptions to Pharmacy of choice a. Pharmacy: b. Location: c. Phone: 3. Insurance card on file - YES 4. Credit card for payment - NO No prescriptions yet. Please page [phone] Hailey Cunningham, 08/28/2017 12:19 PM Signed CARE MANAGEMENT PROGRESS NOTE SERVICE DATE: 08/28/2017 SERVICE TIME: 11:37 LOS: 3 days IM letter given to patient on 08/28/2017. SIGNATURE: Hailey Cunningham, PATIENT NAME: Paloma Cannon DATE: August 28, 2017 TIME: 12:18 PM PAGER/CONTACT #: [phone] Dominique Wright MD 08/28/2017 2:34 PM Addendum INFECTIOUS DISEASE CONSULT SERVICE PROGRESS NOTE Date: August 28, 2017 Patient Name: Paloma Cannon Interval History: Doing well. MEDICATIONS Current Facility-Administered Medications: ampicillin 2 g in NaCl 0.9% 100 mL MB+/ADD-[place] 2 g INTRAVENOUS q 6 H diphenhydrAMINE 25 mg in D5W 50 mL 25 mg INTRAVENOUS PRN prochlorperazine 5 mg injection (COMPAZINE) 5 mg INTRAVENOUS q 4 H PRN metroNIDAZOLE 500 mg PREMIX piggyback (FLAGYL) 500 mg INTRAVENOUS q 8 H sulfamethoxazole-trimethoprim 800-160 mg 1 tablet (BACTRIM DS,SEPTRA DS) 1 tablet ORAL MO-WE- gabapentin 300 mg cap(s) (NEURONTIN) 300 mg ORAL q 8 H predniSONE 10 mg tab(s) (DELTASONE) 10 mg ORAL DAILY 0.9% NaCl 10 mL 10 mL INTRAVENOUS q 12 H 0.9% NaCl 20 mL 20 mL INTRAVENOUS PRN warfarin order for discharge OTHER PRN Current antibiotics: Ampicillin flagyl Examination: BP 115/56 Pulse 89 Temp 36.7 ?C (98.1 ?F) (Temporal Artery) Resp 18 Ht 160 cm (5' 3) Wt 94.3 kg (207 lb 14.3 oz) SpO2 100% BMI 36.83 kg/m2 Alert, oriented, appears better HEENT no conjunctival lesions, no thrush NECK supple, no LAD CHEST clear, right samantha catheter entry site benign, left pheresis catheter benign appearing HEART regular, no mRG ABDO soft, nontender, mild distension EXTREM bilateral LE symmetric erythema of lower legs to ankle, blanches to pressure, nontender ?? Laboratory data: WBC 2.07, HCT 25, PLTs 61, ALC 0.18, Cr 1.18 ?? Microbiology data: 08/26: blood x 2 NGTD 08/25 blood x 2 E faecalis 2 of 2 sets from and periphery 08/25: stool C diff ?? Imaging data: CXR reviewed, no infiltrates ?? ASSESSMENT:? 1. Antiphospholipid syndrome?(on plasmapheresis- PLEX every other week, prednisone?5/10mg) 2. 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 stents and Endoglix AFX endograft at the inferior vena caval bifurcation) on warfarin,?extensive thrombectomy at outside hospital for right lower extremity and IVC thrombus. 3. DAH x 5 4. HFpEF due to Rituximab. 5.?MRSE BSI attributed to tunneled catheter treated with 6 weeks of iv daptomycin in 02/02. ?? Admitted with fever and diarrhea. Found to have recurrence of C diff and E faecalis BSI. Suspected primary line infection (gre from line in 12 hours compared to 20 hours from periphery) and less likely GI source possible. UA not suggestive of urinary source. ? RECOMMENDATIONS:? 1. Continue ampicillin 2. Continue flagyl 500 mg TID for C diff 3. CT abdomen/pelvis before making decision to remove line to ensure no alternative source. 4. If not alternative source for infection would remove and replace the partida catheter. Does not obviously need the pheresis catheter removed, though it could be seeded. Signature: Dominique Wright MD August 28, 2017 1 p.m. Previous Version Gael Simmons MD 08/28/2017 3:[address] [facility] Progress Note PATIENT NAME: Paloma Cannon Brief Plan for Today - Repeat blood cultures today - Continue Ampicillin and Flagyl - Follow up ECHO, CMV, fungal battery - Monitor SCr Interval History No acute events overnight, afebrile 24 hours, HDS Diarrhea is improving, subjectively feels better today Will hold off on Line removal and follow up blood cultures serially Medications Current Facility-Administered Medications: ampicillin 2 g in NaCl 0.9% 100 mL MB+/ADD-[place] 2 g INTRAVENOUS q 6 H diphenhydrAMINE 25 mg in D5W 50 mL 25 mg INTRAVENOUS PRN prochlorperazine 5 mg injection (COMPAZINE) 5 mg INTRAVENOUS q 4 H PRN metroNIDAZOLE 500 mg PREMIX piggyback (FLAGYL) 500 mg INTRAVENOUS q 8 H sulfamethoxazole-trimethoprim 800-160 mg 1 tablet (BACTRIM DS,SEPTRA DS) 1 tablet ORAL gabapentin 300 mg cap(s) (NEURONTIN) 300 mg ORAL q 8 H predniSONE 10 mg tab(s) (DELTASONE) 10 mg ORAL DAILY 0.9% NaCl 10 mL 10 mL INTRAVENOUS q 12 H 0.9% NaCl 20 mL 20 mL INTRAVENOUS PRN warfarin order for discharge OTHER PRN Physical Exam BP 115/56 Pulse 89 Temp 36.7 ?C (98.1 ?F) (Temporal Artery) Resp 18 Ht 160 cm (5' 3) Wt 94.3 kg (207 lb 14.3 oz) SpO2 100% BMI 36.83 kg/m2 General: No acute distress. AANDOx3. HEENT: PERRLA. EOMi. Neck: No JVD. No LAD. CV: Normal rate and rhythm. No murmurs or rubs auscultated. Resp: CTA b/l. No wheezing or crackles. Abdomen: Soft, nontender, nondistended abdomen. BSx4. Extremities: No pedal edema b/l. Neuro: CN II-XII Grossly Intact. Fluid Balance Intake/Output Summary (Last 24 hours) at 08/28/17 1356 Last data filed at 08/28/17 1300 Gross per 24 hour Intake 1911 ml Output 1300 ml Net 611 ml Labs .CBC, Coags, BMP, Mg, Phos Recent Labs 08/28/17 0428 08/27/17 0506 08/26/17 0501 WBC 2.58* 1.47* 2.07* HB 7.9* 7.1* 7.9* HCT 25.2* 22.9* 25.7* PLT 82* 56* 61* INR 3.7* 3.5* 2.5* NA 137 133* 133* K 3.6* 3.9 3.6* CHLOR 104 98 99 CO2 20* 22 21* BUN 13 17 11 CREAT 1.18* 1.55* 1.40* GLUC 78 96 73* CA 7.8* 7.4* 7.6* MG -- 2.2 1.6* P -- 4.7 2.7 Liver Function, Amylase, AND Lipase Recent Labs 08/28/17 0428 08/25/17 1735 08/25/17 1730 TPROT 5.1* -- 5.4* ALB 3.1* -- 3.3* ALT 6* -- <5* AST 15 -- 12* ALKPHOS 42 -- 52 TBILI 0.5 -- 0.9 LACT -- 0.8 -- Assessment and Plan The patient is a 27 year old female with a Gram-positive bacteremia in the setting of C difficile Colitis, pancytopenia, and CAPRICE. ? 1.) Gram-positive bacteremia Presented with fever + nausea/vomiting, 2/2 blood cultures from 08/25 showed Gram-positive cocci in pairs + chains, currently afebrile and hemodynamically stable Plan: - Pans ensitive E fecalis; started on Ampicillin ? 2.) C difficile Colitis Multiple bouts of diarrhea on presentation, C difficile assay positive Plan: - metronidazole - contact precautions ? 3.) Pancytopenia Unclear etiology, possibly related to medications (cyclophosphamide or bactrim she's been taking for PJP prophylaxis), reticulocyte count 1.5% (inadequate bone marrow compensation) Plan: - Hold cyclophosohamide - f/u CMV + fungal battery 4.) CAPRICE Elevated Cr (baseline about 1), UA was clean with no signs of infection, FENa < 1%, likely pre-renal from dehydration 2/2 diarrhea with hypotension from bacteremia Plan: - Returning to baseline - strict IANDOs - avoid nephrotoxins - avoid NSAIDS + iv contrast - iv fluids as necessary ? Chronic Problems: 1. Anti-phospholipid Syndrome 2. Hypertension 3. Heparin-induced Thrombocytopenia 4. 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 GERD ? Other: Diet: Regular GI AND DVT Prophylaxis: warfarin PT/OT Disposition Recs: N/A Code Status: Full code ? Case to be discussed with staff. SIGNATURE: [place] [id number] DATE of SERVICE: August 28, 2017 TIME of SERVICE: 1:[address] FRED STONE, SR. HOSPITAL STAFF PHYSICIAN NOTE OF PERSONAL INVOLVEMENT IN CARE I have reviewed the documentation obtained and documented by the team healthcare provider (fellow, resident, nurse practitioner or physician child nutrition assistant) and I personally participated in the fernandes components. I have discussed the case and management of the patient's care and the note has been revised / addended to reflect my direct input. Gael Simmons MD [facility] Medicine Staff PAGER: [phone] DATE of Service: 08/28/2017 TIME of Service: 3:05 PM Previous Version Lashon Howell RN, RN 08/29/2017 2:22 AM Signed Nursing Progress Note Patient Name: Paloma Cannon Patient Location: [facility] G081 Daily Note: 0217 Lab called urgent value, +blood cultures on 08/26 from central line showing gram + cocci and clusters. Vipul bigg paged. This note was completed by: JEFF Gomez RN, RN 08/29/2017 6:52 AM Signed Nursing Progress Note Patient Name: Paloma Cannon Patient Location: G081 [id number] Daily Note: 0650 - Vipul nights paged to notify that Blood Cx drawn 08/26 @ 1828 from central line + MRSE. This note was completed by: JEFF Ayala MD 08/29/2017 7:59 AM Signed ID [email or web address] NOTE Blood cultures from line now growing MRSE from 3 sets. Previously only one set. 08/25: blood x 2 line and periphery MRSE + E faecalis (sensitive to ampicillin) 08/26: blood x 1 of 2 (central line) growing MRSE 08/28: blood x 2 NGTD Will need to cover both E faecalis and MRSE. Please change ampicillin to daptomycin 8 mg/kg daily. Patient reluctant to be on longer term vancomycin as she had renal issues with it previously. Dominique Wright MD August 29, 2017 8 a.m. Gael Simmons MD 08/29/2017 12:47 PM [facility] Vipul Marie Progress Note PATIENT NAME: Paloma Cannon Brief Plan for Today - Appreciate ID recommendations; Switch ampicillin to daptomycin as 3 culltures positive for MRSE - Monitor blood count - Hold off CT Abd and line removal as BCx from 08/28 NG x 24hrs - F/u ECHO, fungal battery Interval History No acute events overnight, afebrile 24 hours, HDS Diarrhea is improving, 2 Bm yesterday, decreased cramping Subjectively feels better today No need for line removal as BCx from 08/28 NG x 1d Switched to daptomycin to cover for MRSE, will monitor counts and change in clinical status closely Medications Current Facility-Administered Medications: DAPTOmycin 750 mg in NaCl 0.9% 50 mL (CUBICIN) 750 mg INTRAVENOUS q 24 HR diphenhydrAMINE 25 mg in D5W 50 mL 25 mg INTRAVENOUS PRN prochlorperazine 5 mg injection (COMPAZINE) 5 mg INTRAVENOUS q 4 H PRN metroNIDAZOLE 500 mg PREMIX piggyback (FLAGYL) 500 mg INTRAVENOUS q 8 H sulfamethoxazole-trimethoprim 800-160 mg 1 tablet (BACTRIM DS,SEPTRA DS) 1 tablet ORAL -- gabapentin 300 mg cap(s) (NEURONTIN) 300 mg ORAL q 8 H predniSONE 10 mg tab(s) (DELTASONE) 10 mg ORAL DAILY 0.9% NaCl 10 mL 10 mL INTRAVENOUS q 12 H 0.9% NaCl 20 mL 20 mL INTRAVENOUS PRN warfarin order for discharge OTHER PRN Physical Exam BP 119/62 Pulse 81 Temp 36.3 ?C (97.4 ?F) (Temporal Artery) Resp 20 Ht 160 cm (5' 3) Wt 94.3 kg (207 lb 14.3 oz) SpO2 95% BMI 36.83 kg/m2 General: No acute distress. AANDOx3. HEENT: PERRLA. EOMi. Neck: No swellings. Has Right sided Samantha catheter x 2 years for Iv access, Left sided Johnny catheter x 4 years for bi monthly PLEX CV: Normal rate and rhythm. Resp: CTA b/l. Maintained sats on baseline NC 2L Abdomen: Soft, nontender, bowel sounds presents, decreased distension Extremities: No pedal edema b/l. Neuro: CN II-XII Grossly Intact. Fluid Balance Intake/Output Summary (Last 24 hours) at 08/29/17 1048 Last data filed at 08/29/17 0900 Gross per 24 hour Intake 1100 ml Output 750 ml Net 350 ml Labs CBC, Coags, BMP, Mg, Phos Recent Labs 08/29/17 0616 08/29/17 0407 08/28/17 0428 08/27/17 0506 WBC -- 1.21* 2.58* 1.47* HB -- 7.4* 7.9* 7.1* HCT -- 23.3* 25.2* 22.9* PLT -- 81* 82* 56* INR -- 2.8* 3.7* 3.5* NA 139 -- 137 133* K 3.7 -- 3.6* 3.9 CHLOR 106* -- 104 98 CO2 22 -- 20* 22 BUN 10 -- 13 17 CREAT 1.04* -- 1.18* 1.55* GLUC 69* -- 78 96 CA 8.0* -- 7.8* 7.4* MG -- -- -- 2.2 P -- -- -- 4.7 Liver Function, Amylase, AND Lipase Recent Labs 08/29/17 0616 08/28/17 0428 TPROT 5.3* 5.1* ALB 3.1* 3.1* ALT 8 6* AST 11* 15 ALKPHOS 40 42 TBILI 0.4 0.5 Assessment and Plan The patient is a 27 year old female with a Gram-positive bacteremia in the setting of C difficile Colitis, pancytopenia, and CAPRICE. ? 1.) Sepsis d/t E fecalis Presented with fever + nausea/vomiting, 2/2 blood cultures from 08/25 showed Gram-positive cocci in pairs + chains, currently afebrile and hemodynamically stable BCX from 08/28 NG x 24 hrs Plan: - Quiñonez sensitive E fecalis; - Needs coverage for MRSE so switched from Ampicillin to daptomycin 2.) MRSE bacteremia 3 line cultures positive for MRSE (2/2 x2/ and 1/2 x2/) Needs coverage for MRSE Prior adverse reaction to vancomycin - CAPRICE Plan: - Switch to Daptomycin ? 3.) C difficile Colitis Multiple bouts of diarrhea on presentation, C difficile assay positive Plan: - metronidazole - contact precautions ? 4.) Pancytopenia Unclear etiology, possibly related to medications (cyclophosphamide or bactrim she's been taking for PJP prophylaxis), reticulocyte count 1.5% (inadequate bone marrow compensation) CMV negative Plan: - Hold cyclophosohamide - fungal battery 4.) CAPRICE Elevated Cr (baseline about 1), UA was clean with no signs of infection, FENa < 1%, likely pre-renal from dehydration 2/2 diarrhea with hypotension from bacteremia Plan: - Returning to baseline - strict IANDOs - avoid nephrotoxins - avoid NSAIDS + iv contrast - iv fluids as necessary ? Chronic Problems: 1. Anti-phospholipid Syndrome 2. Hypertension 3. HFpEF - f/u ECHO 4. Heparin-induced Thrombocytopenia 5. 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 GERD ? Other: Diet: Regular GI AND DVT Prophylaxis: warfarin PT/OT Disposition Recs: N/A Code Status: Full code ? Case to be discussed with staff, Dr Simmons SIGNATURE: [place] [id number] DATE of SERVICE: August 29, 2017 TIME of SERVICE: 10:[address] FRED STONE, SR. HOSPITAL STAFF PHYSICIAN NOTE OF PERSONAL INVOLVEMENT IN CARE I have reviewed the documentation obtained and documented by the team healthcare provider (fellow, resident, nurse practitioner or physician child nutrition assistant) and I personally participated in the fernandes components. I have discussed the case and management of the patient's care and the note has been revised / addended to reflect my direct input. Cough with bloody tinged sputum today, concerning for DAH. CXR and monitor closely. [facility], agree with ID will need to be removed. Appreciate ID support Gael Simmons MD FACP [facility] Medicine Staff PAGER: [phone] DATE of Service: 08/29/2017 TIME of Service: 12:46 PM Previous Version Dominique Wright MD 08/29/2017 12:23 PM Signed INFECTIOUS DISEASE CONSULT SERVICE PROGRESS NOTE Date: August 29, 2017 Patient Name: Paloma Cannon Interval History; Doing well today. No fevers. Eager to have current infection resolved for PLEX planned next week. MEDICATIONS Current Facility-Administered Medications: DAPTOmycin 750 mg in NaCl 0.9% 50 mL (CUBICIN) 750 mg INTRAVENOUS q 24 HR diphenhydrAMINE 25 mg in D5W 50 mL 25 mg INTRAVENOUS PRN prochlorperazine 5 mg injection (COMPAZINE) 5 mg INTRAVENOUS q 4 H PRN metroNIDAZOLE 500 mg PREMIX piggyback (FLAGYL) 500 mg INTRAVENOUS q 8 H sulfamethoxazole-trimethoprim 800-160 mg 1 tablet (BACTRIM DS,SEPTRA DS) 1 tablet ORAL MO-WE- gabapentin 300 mg cap(s) (NEURONTIN) 300 mg ORAL q 8 H predniSONE 10 mg tab(s) (DELTASONE) 10 mg ORAL DAILY 0.9% NaCl 10 mL 10 mL INTRAVENOUS q 12 H 0.9% NaCl 20 mL 20 mL INTRAVENOUS PRN warfarin order for discharge OTHER PRN Current antibiotics: daptomycin flagyl Examination: BP 119/62 Pulse 81 Temp 36.3 ?C (97.4 ?F) (Temporal Artery) Resp 20 Ht 160 cm (5' 3) Wt 94.3 kg (207 lb 14.3 oz) SpO2 95% BMI 36.83 kg/m2 Alert, oriented, appears well HEENT no conjunctival lesions, no thrush NECK supple, no LAD CHEST clear, right samantha catheter entry site benign, left pheresis catheter benign appearing HEART regular, no mRG ABDO soft, nontender, mild distension EXTREM bilateral LE symmetric erythema of lower legs to ankle, blanches to pressure, nontender ?? Laboratory data: WBC 1.21, HCT 23, PLTs 82, Cr 1.04 ?? Microbiology data: 08/28: blood x 2 NGTD 08/26: blood catheter MRSE, blood peripheral NGTD 08/25 blood x 2 E faecalis and now MRSE 2 of 2 sets from and periphery 08/25: stool C diff ?? Imaging data: CXR reviewed, no infiltrates ?? ASSESSMENT:? 1. Antiphospholipid syndrome?(on plasmapheresis- PLEX every other week, prednisone?5/10mg) 2. 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 stents and Endoglix AFX endograft at the inferior vena caval bifurcation) on warfarin,?extensive thrombectomy at outside hospital for right lower extremity and IVC thrombus. 3. DAH x 5 4. HFpEF due to Rituximab. 5.?MRSE BSI attributed to tunneled catheter treated with 6 weeks of iv daptomycin in 02/02. ?? Admitted with fever and diarrhea. Found to have recurrence of C diff and E faecalis+ MRSE BSI. Suspected primary line infection (grew from line in 12 hours compared to 20 hours from periphery). Presence of MRSE argues against GI source. UA not suggestive of urinary source. ?? RECOMMENDATIONS:? 1. Changed amp to daptomycin as per earlier note 2. Continue flagyl 500 mg TID for C diff 3. Obtain cultures from the plex catheter. Hopefully will not need removal 4. Plan to arrange for samantha/partida removal. New line can be inserted when blood cultures negative x 48 hours, no fever. Dominique Wright MD August 29, 2017 12:25 p.m. Elsa Germain MS RD LD 08/30/2017 6:05 PM Signed NUTRITION THERAPY PROGRESS NOTE SERVICE DATE: 08/30/2017 SERVICE TIME: 1535 RECOMMENDED DIAGNOSIS: SEVERE PROTEIN-CALORIE MALNUTRITION per Registered Dietitian on 08/27 NUTRITION CARE PLAN Intervention: Regular diet Monitor and Evaluation: Goal: Meet >75% of estimated needs Monitor fluid/electrolyte balance Monitor labs, I/Os, vital signs, weight Discharge Nutrition Recommendations: Diet: regular Interval History: ID continues to follow for BSI and CDI and abx. Samantha to be removed. Diarrhea improving. MD note from yesterday indicates some concern for DAH given blood-tinged sputum. Pt reports she has no appetite which she blames on her pre- adm chemo. Also, she reports taste changes which also impact her willingness/desire to eat. Not drinking the G2 due to the taste. Present Diet Order: Regular G2 x 2 Nutritional Intake: Eating better - now 75-100% 2 x day for 2 days Admission Weight: 92.5 kg (204 lb) Current Weight: 94.3 kg (207 lb 14.3 oz) Body mass index is 36.83 kg/(m2). MNT Billing Type: Re-assess/15 min 2 units SIGNATURE: Elsa Germain MS RDN-AP LD [facility] PATIENT NAME: Paloma Cannon DATE: August 30, 2017 TIME: 10:34 AM PAGER: [phone] Gael Simmons MD 08/30/2017 2:[address] [facility] Progress Note PATIENT NAME: Paloma Cannon Brief Plan for Today - Continue daptomycin and flagyl - Remove right sided Samantha catheter - draw BCx from left sided Johnny catheter - Monitor renal function, blood cultures Interval History No acute events overnight, afebrile 48 hours, HDS Diarrhea is improving, formed BM, no cramping Will remove Samantha catheter as she grew MRSE in 3/4 cultures; she is growing MRSE from Samantha culture. If she grows from Johnny catheter, it may need to be removed later as well. Medications Current Facility-Administered Medications: DAPTOmycin 750 mg in NaCl 0.9% 50 mL (CUBICIN) 750 mg INTRAVENOUS q 24 HR diphenhydrAMINE 25 mg in D5W 50 mL 25 mg INTRAVENOUS PRN prochlorperazine 5 mg injection (COMPAZINE) 5 mg INTRAVENOUS q 4 H PRN metroNIDAZOLE 500 mg PREMIX piggyback (FLAGYL) 500 mg INTRAVENOUS q 8 H sulfamethoxazole-trimethoprim 800-160 mg 1 tablet (BACTRIM DS,SEPTRA DS) 1 tablet ORAL -WE- gabapentin 300 mg cap(s) (NEURONTIN) 300 mg ORAL q 8 H predniSONE 10 mg tab(s) (DELTASONE) 10 mg ORAL DAILY 0.9% NaCl 10 mL 10 mL INTRAVENOUS q 12 H 0.9% NaCl 20 mL 20 mL INTRAVENOUS PRN warfarin order for discharge OTHER PRN Physical Exam BP 122/68 Pulse 86 Temp 36.6 ?C (97.9 ?F) (Temporal Artery) Resp 16 Ht 160 cm (5' 3) Wt 94.3 kg (207 lb 14.3 oz) SpO2 98% BMI 36.83 kg/m2 General: No acute distress. AANDOx3. HEENT: PERRLA. EOMi. Neck: No swellings. Has Right sided Samantha catheter x 2 years for Iv access, Left sided Johnny catheter x 4 years for bi monthly PLEX CV: Normal rate and rhythm. Resp: CTA b/l. Maintained sats on baseline NC 2L Abdomen: Soft, nontender, bowel sounds presents, decreased distension Extremities: No pedal edema b/l. Neuro: CN II-XII Grossly Intact. Fluid Balance Intake/Output Summary (Last 24 hours) at 08/30/17 1216 Last data filed at 08/30/17 0533 Gross per 24 hour Intake 910 ml Output 750 ml Net 160 ml Labs CBC, Coags, BMP, Mg, Phos Recent Labs 08/30/17 0323 08/29/17 0616 08/29/17 0407 08/28/17 0428 WBC 1.34* -- 1.21* 2.58* HB 7.4* -- 7.4* 7.9* HCT 24.1* -- 23.3* 25.2* PLT 89* -- 81* 82* INR 2.3* -- 2.8* 3.7* NA 138 139 -- 137 K 3.8 3.7 -- 3.6* CHLOR 106* 106* -- 104 CO2 22 22 -- 20* BUN 8 10 -- 13 CREAT 0.93 1.04* -- 1.18* GLUC 70* 69* -- 78 CA 7.9* 8.0* -- 7.8* MG 2.0 -- -- -- P 2.5* -- -- -- Liver Function, Amylase, AND Lipase Recent Labs 08/30/1732208/29/17 0616 08/28/17 0428 TPROT 5.1* 5.3* 5.1* ALB 2.9* 3.1* 3.1* ALT <5* 8 6* AST 10* 11* 15 ALKPHOS 42 40 42 TBILI 0.5 0.4 0.5 Assessment and Plan The patient is a 27 year old female with a Gram-positive bacteremia in the setting of C difficile Colitis, pancytopenia, and CAPRICE. ? 1.) Sepsis d/t E fecalis Presented with fever + nausea/vomiting, 2/2 blood cultures from 08/25 showed Gram-positive cocci in pairs + chains, currently afebrile and hemodynamically stable BCX from 08/28 NG x 24 hrs Plan: - Quiñonez sensitive E fecalis; - Needs coverage for MRSE so switched from Ampicillin to daptomycin 2.) MRSE bacteremia 3 line cultures positive for MRSE (2/2 x2/ and 1/2 x2/) Needs coverage for MRSE Prior adverse reaction to vancomycin - CAPRICE Culture from Samantha and Johnny catheter Plan: - Switch to Daptomycin - remove Samantha catheter - hold off removing Johnny catheter until cultures reported ? 3.) C difficile Colitis Multiple bouts of diarrhea on presentation, C difficile assay positive Plan: - metronidazole - contact precautions ? 4.) Pancytopenia Unclear etiology, possibly related to medications (cyclophosphamide or bactrim she's been taking for PJP prophylaxis), reticulocyte count 1.5% (inadequate bone marrow compensation) CMV negative Plan: - Hold cyclophosohamide - fungal battery 4.) CAPRICE Elevated Cr (baseline about 1), UA was clean with no signs of infection, FENa < 1%, likely pre-renal from dehydration 2/2 diarrhea with hypotension from bacteremia Plan: - Returning to baseline - strict IANDOs - avoid nephrotoxins - avoid NSAIDS + iv contrast - iv fluids as necessary ? Chronic Problems: 1. Anti-phospholipid Syndrome 2. Hypertension 3. HFpEF - f/u ECHO 4. Heparin-induced Thrombocytopenia 5. 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 GERD ? Other: Diet: Regular GI AND DVT Prophylaxis: warfarin PT/OT Disposition Recs: N/A Code Status: Full code ? Case to be discussed with staff, Dr Simmons SIGNATURE: [place] [id number] DATE of SERVICE: August 30, 2017 TIME of SERVICE: 12:[address] FRED STONE, SR. HOSPITAL STAFF PHYSICIAN NOTE OF PERSONAL INVOLVEMENT IN CARE I have reviewed the documentation obtained and documented by the team healthcare provider (fellow, resident, nurse practitioner or physician child nutrition assistant) and I personally participated in the fernandes components. I have discussed the case and management of the patient's care and the note has been revised / addended to reflect my direct input. Samantha now out. Diarrhea resolving Need c/s from Basil Appreciate ID help Hemoptysis has resolved as well Gael Simmons MD [facility] Medicine Staff PAGER: [phone] DATE of Service: 08/30/2017 TIME of Service: 2:20 PM Previous Version Alondra Campa, PT 08/30/2017 12:26 PM Signed Physical Therapy Evaluation SERVICE DATE: 08/30/2017 SERVICE TIME: 1151 to 1215 ROOM: [place] [address] Recommended Discharge Disposition: Home Recommended Discharge Equipment: Patient to Obtain PT Recommendations to Nursing: (Ambulate ad tom with use of IV pole PRN) PT 6 Clicks Score: 24 Precautions/Activity Restrictions: Lines/Tubes/Drains ASSESSMENT : Tolerated Full Session Pt demonstrates IND in all functional mobility with good safety awareness and dynamic balance. Pt will have adequate assist at home if needed and is agreeable to continue to ambulate and be compliant with HEP while in house. Pt also agreeable to PT/dc plan. PT discontinuing services at this time. Please re-consult if new needs arise. PLAN: Treatment Frequency (times per week): Discontinue Therapy Services Reasons Therapy Services Discontinued: Independent in all functional mobility;No skilled needs Treatment Interventions: Education;Self Care / Home Management;Energy Conservation Training;Joint Mobility;Strengthening;Balance Training;Functional Mobility Training;Neuromuscular Re-education Plan of Care developed with: Patient () TREATMENT INTERVENTIONS: Therapy Diagnosis: No Skilled Need Interventions Provided: Evaluation;Gait Training (51924) $ Evaluation-Low (60852) Billed Units: 1 unit Gait Training (44480) Treatment Minutes: 8 1 unit Skilled Intervention(s): Instruction in sit to stand technique with proper hand placement and body positioning at edge of bed/chair, Instruction in stand to sit technique with LE's touching chair/bed and reaching back for surface, Instruction in sequencing, gait pattern, Instruction in correction of gait deviations, Instruction in use of equipment, cues for sequence and pattern, posture, safety, pacing. Education in activity tolerance, use of pursed lip breathing and means of self monitoring tolerance to activity and exercise. Educated in safety precautions and modifications during ambulation. Education of PT role/responsibility, d/c planning, poc, benefits of mobility, importance of OOB activity with nursing assist, use of call light, safety, activity pacing, precautions. ? Total Timed Code Treatment Minutes: 8 Total Treatment Time (minutes): 24 FUNCTIONAL G CODE: PT 6 Clicks Score: 24 (08/30/17 1151) Mobility: Walking and Moving Around Current Status (G8978): (08/30/17 1151) Mobility: Walking and Moving Around Goal Status (G8979): (08/30/17 1151) Mobility: Walking and Moving Around Discharge Status (G8980): (08/30/17 1151) Based on clinical assessment and the score on the 6 Clicks Functional Assessment Tool, the G code and corresponding severity modifiers are documented above. SUBJECTIVE: Current Hospital Course: Chart reviewed; 27 y/o female who presents with new onset fevers. 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 Let me show you. 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 Entry To Home: No Stairs Number Of Stairs To Bed/Bath: 0 Tub/Shower Type: walk in Equipment Owned: Commode-Raised;Grab Bars-Shower;Grab Bars- Toilet;Hand Held Shower;Shower Chair;Home Oxygen Prior Functional Level: Within Functional Limits OBJECTIVE: CURRENT FUNCTIONAL STATUS: Current Functional Mobility Assist Level Additional Information Rolling Independent Supine to Sit Independent Sit to Supine Independent Scooting Independent Sit to Stand Independent Stand to Sit Independent Gait Independent Gait Device: None Gait Distance (feet): 30 (limited by lines) Balance: Static Sitting;Dynamic Sitting;Static Standing;Dynamic Standing Static Sitting Balance: Independent Dynamic Sitting Balance: Independent Static Standing Balance: Independent Dynamic Standing Balance: Independent Pt supine in bed at end of session with all needs within reach. Bed in lowest, locked position with 2 bed rails elevated. Please see discipline specific clinical documentation flowsheet for complete details for this therapy evaluation/treatment. SIGNATURE: Alondra Campa PT PATIENT NAME: Paloma Cannon DATE: August 30, 2017 TIME: 12:22 PM PAGER/CONTACT #: [phone] Dominique Wright MD 08/30/2017 12:37 PM Signed INFECTIOUS DISEASE CONSULT SERVICE PROGRESS NOTE Date: August 30, 2017 Patient Name: Paloma Cannon Interval History: Doing well today. No new issues. Diarrhea improving. MEDICATIONS Current Facility-Administered Medications: DAPTOmycin 750 mg in NaCl 0.9% 50 mL (CUBICIN) 750 mg INTRAVENOUS q 24 HR diphenhydrAMINE 25 mg in D5W 50 mL 25 mg INTRAVENOUS PRN prochlorperazine 5 mg injection (COMPAZINE) 5 mg INTRAVENOUS q 4 H PRN metroNIDAZOLE 500 mg PREMIX piggyback (FLAGYL) 500 mg INTRAVENOUS q 8 H sulfamethoxazole-trimethoprim 800-160 mg 1 tablet (BACTRIM DS,SEPTRA DS) 1 tablet ORAL MO-WE- gabapentin 300 mg cap(s) (NEURONTIN) 300 mg ORAL q 8 H predniSONE 10 mg tab(s) (DELTASONE) 10 mg ORAL DAILY 0.9% NaCl 10 mL 10 mL INTRAVENOUS q 12 H 0.9% NaCl 20 mL 20 mL INTRAVENOUS PRN warfarin order for discharge OTHER PRN Current antibiotics: daptomycin 8 mg/kg daily Flagyl Examination: BP 125/87 Pulse 93 Temp 36.3 ?C (97.4 ?F) (Oral) Resp 16 Ht 160 cm (5' 3) Wt 94.3 kg (207 lb 14.3 oz) SpO2 99% BMI 36.83 kg/m2 Alert, oriented, appears well HEENT no conjunctival lesions, no thrush NECK supple, no LAD CHEST clear, right samantha catheter entry site benign, left pheresis catheter benign appearing HEART regular, no mRG ABDO soft, nontender, mild distension EXTREM bilateral LE symmetric erythema of lower legs to ankle, blanches to pressure, nontender ?? Laboratory data: WBC 1.34, HCT 24, PLTs 89, Cr 0.93, INR 2.3 ?? Microbiology data: 08/28: blood x 2 NGTD 08/26: blood catheter MRSE, blood peripheral NGTD 08/25 blood x 2 E faecalis and now MRSE 2 of 2 sets from and periphery 08/25: stool C diff ?? Imaging data: CXR reviewed, no infiltrates ?? ASSESSMENT:? 1. Antiphospholipid syndrome?(on plasmapheresis- PLEX every other week, prednisone?5/10mg) 2. 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 stents and Endoglix AFX endograft at the inferior vena caval bifurcation) on warfarin,?extensive thrombectomy at outside hospital for right lower extremity and IVC thrombus. 3. DAH x 5 4. HFpEF due to Rituximab. 5.?MRSE BSI attributed to tunneled catheter treated with 6 weeks of iv daptomycin in 02/02. ?? Admitted with fever and diarrhea. Found to have recurrence of C diff colitis and E faecalis+ MRSE BSI. Suspected primary line infection (grew from line in 12 hours compared to 20 hours from periphery). Presence of MRSE argues against GI source. UA not suggestive of urinary source. ?? RECOMMENDATIONS:? 1. Can lower dose of daptomycin to 6 mg/kg daily given rapid clearance and type of organisms growing. 2. Continue flagyl 500 mg TID for C diff 3. Obtain cultures from the plex catheter. Hopefully will not need removal 4. Plan to arrange for samantha/partida removal. New line can be inserted when blood cultures negative x 48 hours, no fever. ? Signature: Dominique Wright MD August 30, 2017 12:35 p.m. Machelle Joshi PA-C 08/30/2017 1:18 PM Signed UPDATED HISTORY AND PHYSICAL EXAMINATION SERVICE DATE: 08/30/2017 SERVICE TIME: 1:17 PM PHYSICAL EXAM MUST BE COMPLETED ON ADMISSION The History and Physical (completed in the past 30 days) has been reviewed and the patient has been examined. The contents accurately reflect the patient's condition with the following additions or revisions since the HANDP was completed. Examination indicates no changes. This HANDP can be found in the Electronic Medical Record dated 08/25/2017. SIGNATURE: Machelle Joshi PA-C PATIENT NAME: Paloma Cannon DATE: August 30, 2017 TIME: 1:17 PM PAGER: [phone] GHAZALA SINGH 08/30/2017 1:48 PM Signed PHARMACY WARFARIN EDUCATION Patient Name: Paloma Cannon Account #: Data Unavailable Admission Date: 08/25/2017 5:15 PM Date of Contact: August 30, 2017 Time of Contact: 1:46 PM Patient new to warfarin? No: Previous (home) dosage: warfarin 7.5 mg Sat and Sun; 5 mg Mon,, Mon, , Fri Outpatient follow-up plan: Follow-up with Physician: name: Dr. Guillaume Fuller' office ([facility] physician) with his GENERATION MECHANIC HELPER Magdalena Indication for warfarin: deep vein thrombosis (DVT) Target INR range: 2.0 - 3.0 (Target 2.5) Patient received full warfarin education (Please see previously documented note on 08/27/17). DAYSI GRULLON PHARMACIST [id number] Machelle Joshi PA-C 08/30/2017 1:54 PM Signed BRIEF OP NOTE LOG ID: [id number] Surgery/Procedure Date: 08/30/2017 Incision/Procedure Start Time: 1325 Incision Close/Procedure End Time: 1335 Surgeon(s)/Proceduralist(s) and Satellite Tv Technician Installer(s): Machelle Joshi PA-C Procedure(s): Removal of samantha catheter Anesthesia: Local Findings: Removal of samantha catheter intact Estimated Blood Loss: <5 mls Specimens: None Complications: None Pre-Op/Pre-Procedure Diagnosis: 27 year old female with history significant for antiphospholipid syndrome, PE AND?DVT 09/2013 (s/p b/l iliac v. stents and Endoglix AFX endograft at the inferior vena caval bifurcation) on warfarin,?extensive thrombectomy at outside hospital for right lower extremity. Has Right sided Samantha catheter x 2 years for Iv access, Left sided Johnny catheter x 4 years for bi monthly PLEX, presenting with bacteremia. Request made for samantha catheter removal. Post-Op/Post-Procedure Diagnosis: Samantha catheter removed SIGNATURE: Machelle Joshi PA-C PATIENT NAME: Paloma Cannon DATE: August 30, 2017 TIME: 1:48 PM PAGER/CONTACT #: [phone] Lourdes Stallworth, RN, RN 08/30/2017 6:24 PM Addendum Nursing Progress Note Patient Name: Paloma Cannon Patient Location: [place] [address] Daily Note: A blood culture ordered for pt, consulted TAMI Palmer, advised to call Hemoc assigned to pt- per in patient notes, no hemoc assigned. 1100 hrs - pt off floor to IR. Dr Liu paged and notified that blood culture not done yet, needs an order for what to lock catheter. 1404 hrs - pt back in the room, no bleeding noted in post SAMANTHA site. 700 hrs blood culture from jesus alberto cath collected by apharesis nurse sent This note was completed by: Lourdes Stallworth RN Previous Version Darcie Choi MD, MD 08/31/2017 7:33 PM Addendum VASCULAR MEDICINE INITIAL CONSULT Requesting Provider: IM Opinion/advice regarding: subtherapeutic INR, APS, remote hx of HIT Subjective CHIEF COMPLAINT: n/v fever, diarrhea HPI: This is a 27 year old female well known to [facility] service for a hx of APS on long-term AC w/warfarin, IVC thrombosis, w/IVC stent, hepatic vein thrombosis, remote HIT and DAH w/scheduled plasmapheresis. Other pertinent past medical history include HF and CKD. Her warfarin is followed by [facility] given her APS. Dr. Andujar manages her PLEX. She presented on 08/25 w/high fevers, n/v and intolerance to PO. She was found to have positive blood cultures and positive c diff. In addition she was neutropenic in the setting of recently starting Cytoxan for her hx of DAH which is now being held in light of her BSI and neutropenia. VM was consulted for subtherapeutic INR and hx of HIT. Pt's INR was allowed to drift down for Samantha and plasmapheresis catheter removal. INR today is 1.8. Pt reports no hemoptysis. No leg swelling PAST MEDICAL HISTORY Diagnosis Date - (HFpEF) heart failure with preserved ejection fraction (HCC) 02/20/2016 HFpEF w last EF 50-55% On Torsemide, coreg, hydralazine and imdur at home No signs of acute exacerbation on admission Plan: -Continue home medications - Anasarca 11/29/2013 - Anemia 03/10/2015 Chronic microcytic anemia. 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 Thrombosis, and Diffuse Alveolar Hemorrhage. On Warfarin and PLEX (Twice Weekly)? Plan: -Warfarin 5mg qday-holding for planned EGD on 01/11 d/t supra therapeutic INR -Cont. PO Prednisone 10mg MWFS and 5mg TTS -Pantoprazole for GI PPx of Above -Apharesis was supposed to be yesterday, will contact plasmapheresis team on recommendations - Antiphospholipid syndrome (HCC) - Catastrophic Antiphospholipid antibody syndrome 11/09/2013 - Cholelithiasis 01/11/2017 Likely cause of recent pancreatitis. Plan: Per general surgery, no acute surgical intervention at this time. Will await results of EGD. If active gastritis, favor outpatient cholecystectomy. If no active gastritis on EGD, plan for cholecystectomy this admission. 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 - PAST SURGICAL HISTORY OF Adenoidectomy - PICC LINE INSERT/CONSULT 11/29/2013 - PICC LINE INSERT/CONSULT 03/10/2015 - PICC LINE INSERT/CONSULT 02/20/2016 FAMILY HISTORY: FAMILY HISTORY Problem Relation Age of Onset - Breast Cancer Mother spine BRCA neg - Ovarian cyst [OTHER] Mother - ovarian cyst [OTHER] Sister - Thyroid No Family History SOCIAL HISTORY: Social History Marital status: Spouse name: Years of education: Number of children: Occupational History 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 2 caps - 7 days; 3 caps- 7 days; 4 caps daily thereafter predniSONE (DELTASONE) 5 mg tablet Take by mouth daily. 20 mg - Jun; 15 mg - Jul; 10 mg - Aug; 5 mg - Sep onwards sulfamethoxazole-trimethoprim (BACTRIM DS) 800-160 mg per tablet Take 1 tablet by mouth every Monday,Monday,Monday. carvedilol (COREG) 25 mg tablet Take 1 tablet by mouth twice daily with meals. HOLD FOR SBP <110 AND HR <60 hydrALAZINE (APRESOLINE) 100 mg tablet Take 1 tablet by mouth every 8 hours. HOLD FOR SBP <110 amLODIPine (NORVASC) 5 mg tablet Take 1 tablet by mouth once daily. HOLD FOR SBP <120 torsemide (DEMADEX) 20 mg tablet Take 2 tablets by mouth once daily. gabapentin (NEURONTIN) 300 mg capsule Please take gabapentin 200 mg three times daily for 3 days.If you tolerate it, increase to 300 mg three times a day for 3 days.If you tolerate it, increase to 600 mg at bedtime and 300 mg daytime for 3 days.If you tolerate it, increase to 600 mg three times a day for 3 days.If you tolerate it, increase to 900 mg at bedtime and 600 mg daytime for 3 days.If you tolerate it, increase to 900 mg three times a day for 3 days. fluticasone (FLONASE) 50 mcg/actuation nasal spray Use 1 [place] in each nostril once daily. warfarin (COUMADIN) 5 mg tablet take by mouth as directed in the evening to keep INR between 2.0-3.[address] (PROTONIX) 40 mg tablet Take 1 tablet by mouth DAILY (6 AM). isosorbide mononitrate ER (IMDUR) 30 mg 24 hr tablet Take 2 tablets by mouth once daily. Please hold if your blood pressure is less than 120/80. cetirizine 10 mg tablet Take 1 tablet by mouth once daily. senna 8.6 mg tab Take 1 tablet by mouth twice daily as needed. Miscellaneous Medical Supply [facility] [place] 1 package 30 - 40 mmHg pressure panty hose compression stockings. Current Facility-Administered Medications: HYDROmorphone 0.5 mg injection (DILAUDID) 0.5 mg INTRAVENOUS q 6 H PRN bivalirudin 250 mg in D5W 250 mL (ANGIOMAX) 0.05 mg/kg/hr INTRAVENOUS CONTINUOUS DAPTOmycin 400 mg in NaCl (PF) 0.9% 8 mL (CUBICIN) 400 mg INTRAVENOUS q 24 HR diphenhydrAMINE 25 mg in D5W 50 mL 25 mg INTRAVENOUS PRN prochlorperazine 5 mg injection (COMPAZINE) 5 mg INTRAVENOUS q 4 H PRN metroNIDAZOLE 500 mg PREMIX piggyback (FLAGYL) 500 mg INTRAVENOUS q 8 H sulfamethoxazole-trimethoprim 800-160 mg 1 tablet (BACTRIM DS,SEPTRA DS) 1 tablet ORAL gabapentin 300 mg cap(s) (NEURONTIN) 300 mg ORAL q 8 H predniSONE 10 mg tab(s) (DELTASONE) 10 mg ORAL DAILY 0.9% NaCl 10 mL 10 mL INTRAVENOUS q 12 H 0.9% NaCl 20 mL 20 mL INTRAVENOUS PRN warfarin order for discharge OTHER PRN ALLERGIES Allergen Reactions - Rhubarb Rash, Hives - Heparin Other: See Comments Per patient history of HIT - was on angiomax however then took l fondaparinux for bridging to coumadin. - Iv Contrast [Iodine] Other: See Comments shuts kidneys down per patient - Rituximab Other: See Comments Elevated cardiac enzymes Objective REVIEW OF SYSTEMS: GENERAL: Fever: YES, on admission Chills: No Night sweats: No Changes in weight: No NEUROLOGICAL: Headaches: No Seizures: No Passing out: No Numbness, tingling or sensation of pins and needles: No HEAD, EYES, EARS, NOSE, AND THROAT: Changes in hearing: No Changes in vision: No Nose bleeds: No CARDIOVASCULAR: Chest pain or pressure: No Palpitations: No Irregular heart rate: No RESPIRATORY: Cough: No Wheezing: No Shortness of breath: No Shortness of breath with exertion: No Coughing up blood: No GASTROINTESTINAL: Abdominal discomfort: No Nausea: Yes on presentation Vomiting: Yes on presentation Diarrhea:Yes on presentation Constipation: No Difficulty swallowing: No Pain with swallowing: No Stomach pain after eating: No Passing blood with bowel movement: No Black tarry stool: No GENITOURINARY: Pain with urination: No Blood in urine: No EXTREMITY: Edema (swelling): No Pain with walking: No MUSCULOSKELETAL: Joint pain: No Joint swelling: No Back pain: No Muscle pain or ache: No SKIN: Rash: No Lesions: No Sores: No Ulcers: No Tenderness: No Skin cancer: No HEMATOLOGY: Easy bruising: No Blood transfusions: No PHYSICAL EXAM: Vital Signs: BP 138/69 Pulse 96 Temp 37.2 ?C (99 ?F) (Oral) Resp 16 Ht 160 cm (5' 2.99) Wt 98 kg (216 lb 0.8 oz) SpO2 93% BMI 38.28 kg/m2 General: alert and oriented x3 Cardiac: RRR Respiratory: clear B/L Abdominal/GI: soft, obese, Extremity: trace LE edema, chronic skin changes Skin: warm, dry Pulse/vascular exam: B/L + 2 rad/dp DATA: Diagnostic tests reviewed for today's visit: Most recent labs and imaging results. Most recent labs CBC, Coags, BMP, Mg, Phos Recent Labs 08/31/17 0435 08/30/17 0323 08/29/17 0616 08/29/17 0407 WBC 1.87* 1.34* -- 1.21* HB 8.9* 7.4* -- 7.4* HCT 29.5* 24.1* -- 23.3* PLT 83* 89* -- 81* INR 1.8* 2.3* -- 2.8* NA -- 138 139 -- K -- 3.8 3.7 -- CHLOR -- 106* 106* -- CO2 -- -- BUN -- 8 10 -- CREAT -- 0.93 1.04* -- GLUC -- 70* 69* -- CA -- 7.9* 8.0* -- MG -- 2.0 -- -- P -- 2.5* -- -- Impression/Recommendations 27 year old female well known to [facility] service for a hx of APS on long-term AC w/warfarin, IVC thrombosis, w/IVC stent, hepatic vein thrombosis, remote HIT and DAH w/scheduled plasmapheresis. Other pertinent past medical history include HF and CKD. Her warfarin is followed by given her APS. Dr. Andujar manages her PLEX. She presented on 08/25 w/high fevers, n/v and intolerance to PO. She was found to have positive blood cultures and positive c diff. In addition she was neutropenic in the setting of recently starting Cytoxan for her hx of DAH which is now being held in light of her BSI and neutropenia. was consulted for subtherapeutic INR and hx of HIT. Pt's INR was allowed to drift down for Samantha and plasmapheresis catheter removal. INR today is 1.8. Estimated Creatinine Clearance: 100.4 mL/min (based on Cr of 0.93). Recommendations: start Fondaparinux 2.5 mg SC for DVT prophylaxis maintain this through the weekend, once new central lines are placed after negative blood cultures and no further procedures planned then would increase to therapeutic AC w/fondarpinux 7.5 mg as a bridge to warfarin (can be completed outpatient) CBC/INR/aptt daily given no recent hx of acute VTE would favor more conservative approach rather than using IV bivalirudin until new lines can be placed above recommendations discussed w/Dr. Choi SIGNATURE: Paulette Naranjo CNP PATIENT NAME: Paloma Cannon DATE: August 31, 2017 TIME: 12:01 PM PAGER/CONTACT #: [phone] . Staff addendum: I interviewed and examined Paloma Cannon, and reviewed and confirmed the findings of the GENERATION MECHANIC HELPER with additional comments below. The assessment and plan was formulated in discussion with the patient and GENERATION MECHANIC HELPER, and is also outlined below. Pleasant 27yo F well known to our service due to hx of APS with hx of prior VTE, on fpc anticoagulation with warfarin, and additional complications related to her APS including DAH. Has actually been doing better in recent months with tx with cytoxan and PLEX. Unfortunately admitted now for C diff and enterococcus bacteremia in setting of neutropenia. She is being planned for line holiday / exchange. We are consulted for anticoag mgmt given APS and also hx of HIT -- cannot receive any heparin products, including no LMWH. As her Cr is currently normal, reasonable to use fondaparinux to avoid need for bival (IV access difficult as lines are being removed, and frequent lab draws). OK to use prophy dose fondaparinux 2.5mg SC QD as outlined above prior to procedure. After lines are replaced and no additional procedures are planned, then would anticipate bridging back to warfarin using full therapeutic fondaparinux 7.5mg QD. Monitor for bleeding. Daily CBC+plt, PT/INR, aPTT. Darcie Choi MD Vascular Medicine Staff Previous Version Gael Simmons MD 08/31/2017 1:05 PM [facility] Progress Note PATIENT NAME: Paloma Cannon Brief Plan for Today - Continue Daptomycin and Flagyl - Remove Johnny catheter - Will need tunneled dialysis catheter placed on Monday for PLEX session on Monday given she becomes culture negative x 48hrs - Iv dilaudid 0.5 mg PRN for generalized body pain - Bivalirudin as sub therapeutic INR - Consult to vascular medicine Interval History No acute events overnight, afebrile 48 hours, HDS Subjectively, c/o of bad generalized body ache, states she had similar pain last time she had bavcteremia. CDiff reynoso her symptoms have improved, no more diarrhea. However, she grew MALICK from the left sided Johnny catheter, so catheter to be removed today. She will need a new tunneled dialysis catheter on Monday prior to PLEX on Monday given she remains culture negative - Her INR is subtherapeutic today at 1.8, and she cannot be given heparin d/t hx of HIT. Starting on Bivalirudin, and consult to vascular medicine for further management. Holding Coumadin since new catheter will need to be placed. Medications Current Facility-Administered Medications: HYDROmorphone 0.5 mg injection (DILAUDID) 0.5 mg INTRAVENOUS q 6 H PRN bivalirudin 250 mg in D5W 250 mL (ANGIOMAX) 0.05 mg/kg/hr INTRAVENOUS CONTINUOUS DAPTOmycin 400 mg in NaCl (PF) 0.9% 8 mL (CUBICIN) 400 mg INTRAVENOUS q 24 HR diphenhydrAMINE 25 mg in D5W 50 mL 25 mg INTRAVENOUS PRN prochlorperazine 5 mg injection (COMPAZINE) 5 mg INTRAVENOUS q 4 H PRN metroNIDAZOLE 500 mg PREMIX piggyback (FLAGYL) 500 mg INTRAVENOUS q 8 H sulfamethoxazole-trimethoprim 800-160 mg 1 tablet (BACTRIM DS,SEPTRA DS) 1 tablet ORAL MO-WE- gabapentin 300 mg cap(s) (NEURONTIN) 300 mg ORAL q 8 H predniSONE 10 mg tab(s) (DELTASONE) 10 mg ORAL DAILY 0.9% NaCl 10 mL 10 mL INTRAVENOUS q 12 H 0.9% NaCl 20 mL 20 mL INTRAVENOUS PRN warfarin order for discharge OTHER PRN Physical Exam BP 138/69 Pulse 96 Temp 37.2 ?C (99 ?F) (Oral) Resp 16 Ht 160 cm (5' 2.99) Wt 98 kg (216 lb 0.8 oz) SpO2 93% BMI 38.28 kg/m2 General: No acute distress. AANDOx3. HEENT: PERRLA. EOMi. Neck: No swellings. Has Right sided Samantha catheter x 2 years for Iv access, Left sided Johnny catheter x 4 years for bi monthly PLEX CV: Normal rate and rhythm. Resp: CTA b/l. Maintained sats on baseline NC 2L Abdomen: Soft, nontender, bowel sounds presents, decreased distension Extremities: No pedal edema b/l. Neuro: CN II-XII Grossly Intact. Fluid Balance Intake/Output Summary (Last 24 hours) at 08/31/17 1246 Last data filed at 08/31/17 0900 Gross per 24 hour Intake 660 ml Output 100 ml Net 560 ml Assessment and Plan The patient is a 27 year old female with a Gram-positive bacteremia in the setting of C difficile Colitis, pancytopenia, and CAPRICE. ? 1.) Sepsis d/t E fecalis Presented with fever + nausea/vomiting, 2/ blood cultures from 08/25 showed Gram-positive cocci in pairs + chains, currently afebrile and hemodynamically stable BCX from 08/28 NG x 24 hrs Plan: - Quiñonez sensitive E fecalis; - Needs coverage for MRSE so switched from Ampicillin to daptomycin 2.) MRSE bacteremia 3 line cultures positive for MRSE (08/11 x2/ and 07/11 x2/) Needs coverage for MRSE Prior adverse reaction to vancomycin - CAPRICE Culture from Samantha and Johnny catheter Plan: - Switch to Daptomycin - remove Johnny catheter ? 3.) C difficile Colitis Multiple bouts of diarrhea on presentation, C difficile assay positive Plan: - metronidazole - contact precautions ? 4.) Pancytopenia Unclear etiology, possibly related to medications (cyclophosphamide or bactrim she's been taking for PJP prophylaxis), reticulocyte count 1.5% (inadequate bone marrow compensation) CMV negative Plan: - Hold cyclophosohamide - fungal battery 4.) CAPRICE Elevated Cr (baseline about 1), UA was clean with no signs of infection, FENa < 1%, likely pre-renal from dehydration 2/2 diarrhea with hypotension from bacteremia Plan: - Returning to baseline - strict IANDOs - avoid nephrotoxins - avoid NSAIDS + iv contrast - iv fluids as necessary 5.) APS Subtherapeutic INR at 1.8 Heparin not an option due to HIT Warfarin not an option due to anticipated line removal and placement in next few days Plan: - Bival vs Fondaparinux - Consult to [facility] medicine ? Chronic Problems: 1. Anti-phospholipid Syndrome 2. Hypertension 3. HFpEF - f/u ECHO 4. Heparin-induced Thrombocytopenia 5. 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 GERD ? Other: Diet: Regular GI AND DVT Prophylaxis: warfarin PT/OT Disposition Recs: N/A Code Status: Full code ? Case to be discussed with staff, Dr Simmons SIGNATURE: [place] [id number] DATE of SERVICE: August 31, 2017 TIME of SERVICE: 12:[address] FRED STONE, SR. HOSPITAL STAFF PHYSICIAN NOTE OF PERSONAL INVOLVEMENT IN CARE I have reviewed the documentation obtained and documented by the team healthcare provider (fellow, resident, nurse practitioner or physician child nutrition assistant) and I personally participated in the fernandes components. I have discussed the case and management of the patient's care and the note has been revised / addended to reflect my direct input. Jesus Alberto c/s positive, will need to be removed - we will schedule. Cont Dapto / Flagyl Appreciate vasc med input, likely fondarinux SQ low dose for now. No further evidence of DAH Some joint pain she says occurred with BSI in the past Gael Simmons MD [facility] Medicine Staff PAGER: [phone] DATE of Service: 08/31/2017 TIME of Service: 1:03 PM Previous Version Dominique Wright MD 08/31/2017 12:57 PM Signed INFECTIOUS DISEASE CONSULT SERVICE PROGRESS NOTE Date: August 31, 2017 Patient Name: Paloma Cannon Interval History: Doing well. Improving diarrhea, stool more solid. Still with some abdominal cramping. MEDICATIONS Current Facility-Administered Medications: HYDROmorphone 0.5 mg injection (DILAUDID) 0.5 mg INTRAVENOUS q 6 H PRN bivalirudin 250 mg in D5W 250 mL (ANGIOMAX) 0.05 mg/kg/hr INTRAVENOUS CONTINUOUS DAPTOmycin 400 mg in NaCl (PF) 0.9% 8 mL (CUBICIN) 400 mg INTRAVENOUS q 24 HR diphenhydrAMINE 25 mg in D5W 50 mL 25 mg INTRAVENOUS PRN prochlorperazine 5 mg injection (COMPAZINE) 5 mg INTRAVENOUS q 4 H PRN metroNIDAZOLE 500 mg PREMIX piggyback (FLAGYL) 500 mg INTRAVENOUS q 8 H sulfamethoxazole-trimethoprim 800-160 mg 1 tablet (BACTRIM DS,SEPTRA DS) 1 tablet ORAL MO-WE- gabapentin 300 mg cap(s) (NEURONTIN) 300 mg ORAL q 8 H predniSONE 10 mg tab(s) (DELTASONE) 10 mg ORAL DAILY 0.9% NaCl 10 mL 10 mL INTRAVENOUS q 12 H 0.9% NaCl 20 mL 20 mL INTRAVENOUS PRN warfarin order for discharge OTHER PRN Current antibiotics: daptomycin 6 mg/kg daily Flagyl Examination: BP 138/69 Pulse 96 Temp 37.2 ?C (99 ?F) (Oral) Resp 16 Ht 160 cm (5' 2.99) Wt 98 kg (216 lb 0.8 oz) SpO2 93% BMI 38.28 kg/m2 Alert, oriented, appears well HEENT no conjunctival lesions, no thrush NECK supple, no LAD CHEST clear, right samantha now removed, dressing in place, left pheresis catheter benign appearing HEART regular, no MRG ABDO soft, nontender, mild distension EXTREM bilateral LE symmetric erythema of lower legs to ankle, blanches to pressure, nontender ?? Laboratory data: WBC 1.8, HCT 29, PLTs 83, Cr 0.93, INR 1.8 ?? Microbiology data: 08/28: blood x 2 NGTD 08/26: blood catheter MRSE, blood peripheral NGTD 08/25 blood x 2 E faecalis and now MRSE 2 of 2 sets from and periphery 08/25: stool C diff ?? Imaging data: CXR reviewed, no infiltrates ?? ASSESSMENT:? 1. Antiphospholipid syndrome?(on plasmapheresis- PLEX every other week, prednisone?5/10mg) 2. 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 stents and Endoglix AFX endograft at the inferior vena caval bifurcation) on warfarin,?extensive thrombectomy at outside hospital for right lower extremity and IVC thrombus. 3. DAH x 5 4. HFpEF due to Rituximab. 5.?MRSE BSI attributed to tunneled catheter treated with 6 weeks of iv daptomycin in 02/02. ?? Admitted with fever and diarrhea. Found to have recurrence of C diff colitis and E faecalis+ MRSE?BSI. Suspected primary line infection (grew?from line in 12 hours compared to 20 hours from periphery). Presence of MRSE argues against GI source. UA not suggestive of urinary source. Samantha removed, but now with identification of jesus alberto/pheresis catheter infection ?? RECOMMENDATIONS:? 1. Continue daptomycin to 6 mg/kg daily 2. Remove Jesus Alberto/pheresis catheter 3. Continue flagyl 500 mg TID for C diff 4. Once jesus alberto removed, obtain set of peripheral blood cutlures. 5. Can likely replace pheresis catheter early next week. Signature: Dominique Wright MD August 31, 2017 1 p.m. Lourdes Stallworth, RN, RN 08/31/2017 5:04 PM Addendum Nursing Progress Note Patient Name: Paloma Cannon Patient Location: [place] [address] Daily Note: 1230 report given to IR for pt removal of jesus alberto, IR notified RN to hold on to the angiomax and IR will call back. 1323 hrs, pt complained of pain joint pain, pt in tears, dilaudid given 1401 Dr Liu paged and clarified about giving angiomax, per MD not to give it, MD will RN when to start. 1411 hrs - pt vomiting Prochloperazine given. pt resting at times. This note was completed by: Lourdes Stallworth RN Previous Version Eugenia Hart RN, RN 08/31/2017 6:40 PM Signed PATIENT EDUCATION TOPIC: PROCEDURE / SURGERY: Pre Procedure Teaching: Logistics Protocols Complication Prevention Surgical Safety Principles PATIENT NAME: Paloma Cannon PATIENT LOCATION: [place] [address] READINESS TO LEARN COGNITIVE ABILITY: Alert and oriented MOTIVATION TO LEARN: Eager FAMILY SUPPORT: Unable to assess - Family not present INSTRUCTION PROVIDED TO: Patient PATIENT LEARNS BEST BY: Multiple Methods FACTORS AFFECTING LEARNING: Unable to assess PHYSICAL LIMITATIONS AFFECTING LEARNING: None LEARNING RESPONSE DIAGNOSIS: ADULT: MRSE PATIENT/FAMILY RESPONSE: Information received as demonstrated by interest and questions METHOD OF INSTRUCTION: Individual instruction Written instruction - handouts Verbal instruction FOLLOW-UP PLAN: Reinforce - Repeat previous content Recommend - Recommend continued instruction and follow up as directed INSTRUCTIONAL AIDS USED: NA SUPPLEMENTAL MATERIAL PROVIDED TO PATIENT: Procedure discharge instructions REFERRAL (RECOMMENDATION): None Electronically Signed By: JEFF Truong III, MD 08/31/2017 6:39 PM Signed UPDATED PROCEDURAL SEDATION HISTORY AND PHYSICAL EXAMINATION SERVICE DATE: 08/31/2017 SERVICE TIME: 1833 PHYSICAL EXAM MUST BE COMPLETED ON ADMISSION The History and Physical (completed in the past 30 days) has been reviewed and the patient has been examined. The contents accurately reflect the patient's condition with the following additions or revisions since the HANDP was completed. ASA Class: ASA Class:: Patient with mild systemic disease Examination indicates no changes. AIRWAY: Airway Visualization of Uvula: Yes Mouth opening greater than 2 fingerbreadths: Yes Neck Full Range of Motion: Yes LUNGS: Lungs clear to auscultation, Good diaphragmatic excursion CARDIAC: Normal S1 and S2; no rubs, murmurs, or gallops Provisional Diagnosis/Treatment Plan: TDC Removal SEDATION GOAL: Moderate This HANDP can be found in the Electronic Medical Record dated 08/25/2017. SIGNATURE: Nicholas Gee III, MD PATIENT NAME: Paloma Cannon DATE: August 31, 2017 TIME: 6:38 PM PAGER: [phone] Nicholas Gee III, MD 08/31/2017 7:44 PM Signed RADIOLOGY BRIEF PROCEDURE NOTE Procedure Date: August 31, 2017 Incision/Procedure Start Time: 1907 Incision Close/Procedure End Time: 1915 UNIVERSAL PROTOCOL / SAFETY CHECKLIST Procedure to be performed: Removal of an indwelling tunnelled central venous catheter - left Sign in Communication: Completed Time Out: Team Confirms the Correct Patient, Correct Procedure, Correct Site and Site Marking, Correct Position (if applicable). Affirmation of Time Out: YES Sign Out Discussion: Completed Informed Consent obtained under separate note. ATTENDING RADIOLOGIST: Interventional: Dr. Nicholas Gee PRE-PROCEDURAL DIAGNOSIS: Catheter infection PROCEDURE: Other (specify) - Removal of an indwelling tunnelled central venous catheter - left MEDICAL HISTORY/PHYSICAL EXAM: Radiology personnel have verified that HANDP exists in patient record. Confirm Medication reconcilation, Allergies, Premedication, Labs, Baseline vital signs or Baseline neurological status unchanged. STATUS: Not applicable SUMMARY: Following full and informed consent the patient was brought to room 25, IR. Hagerman protocol performed. Subsequently, Removal of an indwelling tunnelled central venous catheter - left. POST-PROCEDURAL DIAGNOSIS: Same COMPLICATIONS: Estimated Blood Loss - minimal, None SPECIMENS: Not applicable DISPOSITION: Patient hemodynamically stable, alert and awake. Patient transferred to Radiology Recovery/PACU for monitoring prior to transfer to the general medical lowe. FULL DICTATION REPORT TO FOLLOW. SIGNATURE: Nicholas Gee III, MD PATIENT NAME: Paloma Cannon DATE: August 31, 2017 TIME: 7:42 PM PAGER/CONTACT #: [phone] Dary Jimenes RN, RN 09/01/2017 9:18 AM Signed CARE MANAGEMENT PROGRESS NOTE SERVICE DATE: 09/01/2017 SERVICE TIME: 9:10 AM LOS: 7 days Needs Prior to Discharge: Procedure;To Be Determined Procedure Needed: needs new line placed Patient will need a new line placed for pheresis treatments. Likely place new line early next week, per patient she is due for her pheresis Monday. Poss IV abx at DC. No W/E DC. TCC/SW to follow For W/E CM p#[id number] SIGNATURE: Dary Jimenes RN PATIENT NAME: Paloma Cannon DATE: September 01, 2017 TIME: 9:10 AM PAGER/CONTACT #: [phone] Gael Simmons MD 09/01/2017 11:59 AM [facility] Progress Note PATIENT NAME: aPloma Cannon Brief Plan for Today - Continue Daptomycin and Flagyl - Monitor blood cultures - Monitor clinical status Interval History No acute events overnight, afebrile 48 hours, HDS, overall feels well Body aches somewhat improved, Johnny catheter removed without complications INR was 1.8 yesterday. Vascular medicine consulted and recommended Fondaparinaux prophylactic dose till new line insertion and then restarting warfarin. Medications Current Facility-Administered Medications: pantoprazole DR 40 mg tab(s) (PROTONIX) 40 mg ORAL DAILY (6 AM) HYDROmorphone 0.5 mg injection (DILAUDID) 0.5 mg INTRAVENOUS q 6 H PRN fondaparinux 2.5 mg injection (ARIXTRA) 2.5 mg SUBCUTANEOUS q 24 HR DAPTOmycin 400 mg in NaCl (PF) 0.9% 8 mL (CUBICIN) 400 mg INTRAVENOUS q 24 HR diphenhydrAMINE 25 mg in D5W 50 mL 25 mg INTRAVENOUS PRN prochlorperazine 5 mg injection (COMPAZINE) 5 mg INTRAVENOUS q 4 H PRN metroNIDAZOLE 500 mg PREMIX piggyback (FLAGYL) 500 mg INTRAVENOUS q 8 H sulfamethoxazole-trimethoprim 800-160 mg 1 tablet (BACTRIM DS,SEPTRA DS) 1 tablet ORAL gabapentin 300 mg cap(s) (NEURONTIN) 300 mg ORAL q 8 H predniSONE 10 mg tab(s) (DELTASONE) 10 mg ORAL DAILY 0.9% NaCl 10 mL 10 mL INTRAVENOUS q 12 H 0.9% NaCl 20 mL 20 mL INTRAVENOUS PRN warfarin order for discharge OTHER PRN Physical Exam BP 127/63 Pulse 94 Temp 36.7 ?C (98.1 ?F) (Oral) Resp 16 Ht 160 cm (5' 2.99) Wt 98 kg (216 lb 0.8 oz) SpO2 97% BMI 38.28 kg/m2 General: No acute distress. AANDOx3. HEENT: PERRLA. EOMi. Neck: No swellings. Both Samantha and Johnny catheters removed, clean sites. CV: Normal rate and rhythm. Resp: CTA b/l. Maintained sats on baseline NC 2L Abdomen: Soft, nontender, bowel sounds presents, decreased distension Extremities: No pedal edema b/l. Neuro: CN II-XII Grossly Intact. Fluid Balance Intake/Output Summary (Last 24 hours) at 09/01/17 1115 Last data filed at 09/01/17 1000 Gross per 24 hour Intake 320 ml Output 150 ml Net 170 ml Assessment and Plan The patient is a 27 year old female with a Gram-positive bacteremia in the setting of C difficile Colitis, pancytopenia, and CAPRICE. ? 1.) Sepsis d/t E fecalis Presented with fever + nausea/vomiting, 2/2 blood cultures from 08/25 showed Gram-positive cocci in pairs + chains, currently afebrile and hemodynamically stable BCX from 08/28 NG x 24 hrs Plan: - Quiñonez sensitive E fecalis; - Needs coverage for MRSE so switched from Ampicillin to daptomycin 2.) MRSE bacteremia 3 line cultures positive for MRSE (/2 x2 and 1/2 x2) Needs coverage for MRSE Prior adverse reaction to vancomycin - CAPRICE Culture from Samantha and Johnny catheter - Both catheters removed Plan: - Switch to Daptomycin - Follow up cultures after removal of catheters ? 3.) C difficile Colitis Multiple bouts of diarrhea on presentation, C difficile assay positive Plan: - metronidazole - contact precautions ? 4.) Pancytopenia Unclear etiology, possibly related to medications (cyclophosphamide or bactrim she's been taking for PJP prophylaxis), reticulocyte count 1.5% (inadequate bone marrow compensation) CMV negative Fluctuating counts Plan: - Monitor counts - Hold cyclophosohamide - Fungal battery 4.) CAPRICE Elevated Cr (baseline about 1), UA was clean with no signs of infection, FENa < 1%, likely pre-renal from dehydration 2/2 diarrhea with hypotension from bacteremia Plan: - Returning to baseline - strict IANDOs - avoid nephrotoxins - avoid NSAIDS + iv contrast - iv fluids as necessary 5.) APS Subtherapeutic INR at 1.8 Heparin not an option due to HIT Warfarin not an option due to anticipated line removal and placement in next few days Plan: - Appreciate vascular medicine recommendations - Fondaparinaux 2.5 mg OD ? Chronic Problems: 1. Anti-phospholipid Syndrome 2. Hypertension 3. HFpEF - f/u ECHO 4. Heparin-induced Thrombocytopenia 5. 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 GERD ? Other: Diet: Regular GI AND DVT Prophylaxis: warfarin PT/OT Disposition Recs: N/A Code Status: Full code ? Case to be discussed with staff, Dr Simmons SIGNATURE: [place] [id number] DATE of SERVICE: September 01, 2017 TIME of SERVICE: 11:[address] FRED STONE, SR. HOSPITAL STAFF PHYSICIAN NOTE OF PERSONAL INVOLVEMENT IN CARE I have reviewed the documentation obtained and documented by the team healthcare provider (fellow, resident, nurse practitioner or physician child nutrition assistant) and I personally participated in the fernandes components. I have discussed the case and management of the patient's care and the note has been revised / addended to reflect my direct input. Jesus Alberto catheter out and she feels better Counts continue to fall Cont current abx ? New TAC early next week Gael Simmons MD [facility] Medicine Staff PAGER: [phone] DATE of Service: 09/01/2017 TIME of Service: 11:58 AM Previous Version Dominique Wright MD 09/01/2017 1:36 PM Addendum INFECTIOUS DISEASE CONSULT SERVICE PROGRESS NOTE Date: September 01, 2017 Patient Name: Paloma Cannon Interval History: Doing well. Jesus Alberto catheter removed yesterday. Has gravelly feeling around joints, thinks it may be due to the daptomycin, had same thing previously. No muscle pain. MEDICATIONS Current Facility-Administered Medications: pantoprazole DR 40 mg tab(s) (PROTONIX) 40 mg ORAL DAILY (6 AM) HYDROmorphone 0.5 mg injection (DILAUDID) 0.5 mg INTRAVENOUS q 6 H PRN fondaparinux 2.5 mg injection (ARIXTRA) 2.5 mg SUBCUTANEOUS q 24 HR DAPTOmycin 400 mg in NaCl (PF) 0.9% 8 mL (CUBICIN) 400 mg INTRAVENOUS q 24 HR diphenhydrAMINE 25 mg in D5W 50 mL 25 mg INTRAVENOUS PRN prochlorperazine 5 mg injection (COMPAZINE) 5 mg INTRAVENOUS q 4 H PRN metroNIDAZOLE 500 mg PREMIX piggyback (FLAGYL) 500 mg INTRAVENOUS q 8 H sulfamethoxazole-trimethoprim 800-160 mg 1 tablet (BACTRIM DS,SEPTRA DS) 1 tablet ORAL MO-WE- gabapentin 300 mg cap(s) (NEURONTIN) 300 mg ORAL q 8 H predniSONE 10 mg tab(s) (DELTASONE) 10 mg ORAL DAILY 0.9% NaCl 10 mL 10 mL INTRAVENOUS q 12 H 0.9% NaCl 20 mL 20 mL INTRAVENOUS PRN warfarin order for discharge OTHER PRN Current antibiotics: daptomycin 6 mg/kg daily Flagyl Examination: BP 120/63 Pulse 95 Temp 36.3 ?C (97.4 ?F) (Oral) Resp 14 Ht 160 cm (5' 2.99) Wt 98 kg (216 lb 0.8 oz) SpO2 100% BMI 38.28 kg/m2 Alert, oriented, appears well HEENT no conjunctival lesions, no thrush NECK supple, no LAD CHEST clear, right samantha now removed, dressing in place, left pheresis catheter removed, site benign HEART regular, no MRG ABDO soft, nontender, mild distension EXTREM bilateral LE symmetric erythema of lower legs to ankle, blanches to pressure, nontender ?? Laboratory data: WBC 1.43, HCT 24, PLTs 53 ?? Microbiology data: 09/01: blood x 2 NGTD 08/30: blood Jesus Alberto cath x 2 GPC clusters and E faecalis 08/28: blood x 2 NGTD 08/26: blood catheter MRSE, blood peripheral NGTD 08/25 blood x 2 E faecalis and now MRSE 2 of 2 sets from and periphery 08/25: stool C diff ?? Imaging data: CXR reviewed, no infiltrates ?? ASSESSMENT:? 1. Antiphospholipid syndrome?(on plasmapheresis- PLEX every other week, prednisone?5/10mg) 2. 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 stents and Endoglix AFX endograft at the inferior vena caval bifurcation) on warfarin,?extensive thrombectomy at outside hospital for right lower extremity and IVC thrombus. 3. DAH x 5 4. HFpEF due to Rituximab. 5.?MRSE BSI attributed to tunneled catheter treated with 6 weeks of iv daptomycin in 02/02. ?? Admitted with fever and diarrhea. Found to have recurrence of C diff colitis and E faecalis+ MRSE?BSI. Suspected primary line infection (grew?from line in 12 hours compared to 20 hours from periphery). Presence of MRSE argues against GI source. UA not suggestive of urinary source. Samantha removed, but then with identification of jesus alberto/pheresis catheter infection. Jesus Alberto removed 08/31. Needs pheresis next week. ?? RECOMMENDATIONS:? 1. Continue daptomycin to 6 mg/kg daily 2. Continue flagyl 500 mg TID for C diff x 14 days 4. If 09/01 blood cultures remain negative can replace pheresis catheter early next week. Will defer to IR about most appropriate site. No tunnel tract infection from previous lines so I would not restrict the site specifically. 5. Will anticipate writing copat early next week. Dr. Menard available for questions over the weekend. I will be back on Monday ? Signature: Dominique Wright MD September 01, 2017 1:35 p.m. Previous Version Gael Simmons MD 09/02/2017 10:45 AM [facility] Progress Note PATIENT NAME: Paloma Cannon Brief Plan for Today - Continue Daptomycin and Flagyl - Monitor blood cultures, last cultures drawn on 09/01 NGx1d - Monitor clinical status - Continue fondaparinaux 2.5 mg Interval History No acute events overnight, afebrile 48 hours, HDS, overall feels well If remains culture negative x 2 days, plan for tunneled dialysis catheter followed by PLEX on Monday. Medications Current Facility-Administered Medications: pantoprazole DR 40 mg tab(s) (PROTONIX) 40 mg ORAL DAILY (6 AM) HYDROmorphone 0.5 mg injection (DILAUDID) 0.5 mg INTRAVENOUS q 6 H PRN fondaparinux 2.5 mg injection (ARIXTRA) 2.5 mg SUBCUTANEOUS q 24 HR DAPTOmycin 400 mg in NaCl (PF) 0.9% 8 mL (CUBICIN) 400 mg INTRAVENOUS q 24 HR diphenhydrAMINE 25 mg in D5W 50 mL 25 mg INTRAVENOUS PRN prochlorperazine 5 mg injection (COMPAZINE) 5 mg INTRAVENOUS q 4 H PRN metroNIDAZOLE 500 mg PREMIX piggyback (FLAGYL) 500 mg INTRAVENOUS q 8 H sulfamethoxazole-trimethoprim 800-160 mg 1 tablet (BACTRIM DS,SEPTRA DS) 1 tablet ORAL gabapentin 300 mg cap(s) (NEURONTIN) 300 mg ORAL q 8 H predniSONE 10 mg tab(s) (DELTASONE) 10 mg ORAL DAILY 0.9% NaCl 10 mL 10 mL INTRAVENOUS q 12 H 0.9% NaCl 20 mL 20 mL INTRAVENOUS PRN warfarin order for discharge OTHER PRN Physical Exam BP 140/68 Pulse 94 Temp 36.7 ?C (98 ?F) (Oral) Resp 18 Ht 160 cm (5' 2.99) Wt 98.2 kg (216 lb 7.9 oz) SpO2 96% BMI 38.36 kg/m2 General: No acute distress. AANDOx3. HEENT: PERRLA. EOMi. Neck: No swellings. Both Samantha and Johnny catheters removed, clean sites. CV: Normal rate and rhythm. Resp: CTA b/l. Maintained sats on baseline NC 2L Abdomen: Soft, nontender, bowel sounds presents, decreased distension Extremities: No pedal edema b/l. Neuro: CN II-XII Grossly Intact. Fluid Balance Intake/Output Summary (Last 24 hours) at 09/02/17 1020 Last data filed at 09/02/17 0936 Gross per 24 hour Intake 1070 ml Output 4 ml Net 1066 ml Assessment and Plan The patient is a 27 year old female with a Gram-positive bacteremia in the setting of C difficile Colitis, pancytopenia, and CAPRICE. ? 1.) Sepsis d/t E fecalis Presented with fever + nausea/vomiting, 2/2 blood cultures from 08/25 showed Gram-positive cocci in pairs + chains, currently afebrile and hemodynamically stable BCX from 08/28 NG x 24 hrs Plan: - Quiñonez sensitive E fecalis; - Needs coverage for MRSE so switched from Ampicillin to daptomycin 2.) MRSE bacteremia 3 line cultures positive for MRSE (08/11 x2/16 and 1 x2/17) Needs coverage for MRSE Prior adverse reaction to vancomycin - CAPRICE Culture from Samantha and Johnny catheter - Both catheters removed Plan: - Switch to Daptomycin - Follow up cultures after removal of catheters - If remains culture negative x 2 days, plan for tunneled dialysis catheter placement on Monday followed by PLEX session ? 3.) C difficile Colitis Multiple bouts of diarrhea on presentation, C difficile assay positive Plan: - metronidazole - contact precautions ? 4.) Pancytopenia Unclear etiology, possibly related to medications (cyclophosphamide or bactrim she's been taking for PJP prophylaxis), reticulocyte count 1.5% (inadequate bone marrow compensation) CMV negative Fluctuating counts Plan: - Monitor counts - Hold cyclophosohamide - Fungal battery 4.) CAPRICE Elevated Cr (baseline about 1), UA was clean with no signs of infection, FENa < 1%, likely pre-renal from dehydration 2/2 diarrhea with hypotension from bacteremia Plan: - Returning to baseline - strict IANDOs - avoid nephrotoxins - avoid NSAIDS + iv contrast - iv fluids as necessary 5.) APS Subtherapeutic INR at 1.8 Heparin not an option due to HIT Warfarin not an option due to anticipated line removal and placement in next few days Plan: - Appreciate vascular medicine recommendations - Fondaparinaux 2.5 mg OD ? Chronic Problems: 1. Anti-phospholipid Syndrome 2. Hypertension 3. HFpEF - f/u ECHO 4. Heparin-induced Thrombocytopenia 5. 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 GERD ? Other: Diet: Regular GI AND DVT Prophylaxis: warfarin PT/OT Disposition Recs: N/A Code Status: Full code ? Case to be discussed with staff, Dr Simmons SIGNATURE: [place] [id number] DATE of SERVICE: September 02, 2017 TIME of SERVICE: 10:[address] FRED STONE, SR. HOSPITAL STAFF PHYSICIAN NOTE OF PERSONAL INVOLVEMENT IN CARE I have reviewed the documentation obtained and documented by the team healthcare provider (fellow, resident, nurse practitioner or physician child nutrition assistant) and I personally participated in the fernandes components. I have discussed the case and management of the patient's care and the note has been revised / addended to reflect my direct input. Clinically improving. No loose stools past 24 hours, joint pain controlled. Plan remains the same. Gael Simmons MD FACP [facility] Medicine Staff PAGER: [phone] DATE of Service: 09/02/2017 TIME of Service: 10:45 AM Previous Version Mitch Wallis OTR/L 09/02/2017 10:41 AM Signed Occupational Therapy Evaluation SERVICE DATE: 09/02/2017 SERVICE TIME: 1000 to 1030 ROOM: [place] [id number] Recommended Discharge Disposition: Home Recommended Discharge Disposition Comments: (home with family) Anticipated Discharge Needs: (none) OT Recommendations to Nursing: (UP ad tom) OT 6 Clicks Score: 24 Precautions/Activity Restrictions: Lines/Tubes/Drains ASSESSMENT: Patient presents with indep to mod indep for ADL and mobility no skilled need D/c from OT services Tolerated Full Session Occupational Therapy Problem List: Education Deficit Patient /Caregiver Goals: Go Home Goals for Plan of Care: Able to perform HEP with: Independent Progress Toward Goals: Progressing as expected Rehab Potential: Excellent PLAN: Treatment Frequency (times per week): Discontinue Therapy Services Reasons Therapy Services Discontinued: No skilled needs;Independent in all functional mobility Visits Treatment Interventions: Education Plan of Care developed with: Patient TREATMENT INTERVENTIONS: Therapy Diagnosis: No Skilled Need Interventions Provided: Evaluation;Therapeutic Exercise (05572) $ Evaluation-Low (67012) Billed Units: 1 unit Therapeutic Exercise (74724) Treatment Minutes: 15 1 unit Skilled Intervention(s): Instruction in therapeutic exercise Denys UE AROM all planes instruction Verbal and tactile cuing provided min cues for follow through Education in cont AROM on own to maintain strength, pt able to demo HEP , goals met Total Timed Code Treatment Minutes: 15 Total Treatment Time (minutes): 30 FUNCTIONAL G CODE: OT 6 Clicks Score: 24 (09/02/17 1000) Self Care Current Status (G8987): CH (09/02/17 1000) Self Care Goal Status (G8988): (09/02/17 1000) Self Care Discharge Status (G8989): (09/02/17 1000) Based on clinical assessment and the score on the 6 Clicks Functional Assessment Tool, the G code and corresponding severity modifiers are documented above. 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 Entry To Home: No Stairs Number Of Stairs To Bed/Bath: 0 Tub/Shower Type: walk in Equipment Owned: Commode-Raised;Grab Bars-Shower;Grab Bars- Toilet;Hand Held Shower;Shower Chair;Home Oxygen Prior Functional Level: Within Functional Limits OBJECTIVE: CURRENT FUNCTIONAL STATUS: Current Activities of Daily Living Assist Level Feeding Independent Grooming Independent Bathing Upper Body Independent Bathing Lower Body Modified Independent Dressing Upper Body Independent Dressing Lower Body Modified Independent Toileting Independent Instrumental Activities of Daily Living Assist Level Meal/Beverage Prep Light Cleaning Laundry Medication Management with Strategies Functional Mobility Assist Level Rolling Independent Supine to Sit Independent Sit to Supine Independent Scooting Independent Sit to Stand Independent Stand to Sit Independent Bed to Chair Independent Stand Pivot Toilet/Commode Independent Functional Mobility Activity Tolerance: Standing Activity Standing Activity Tolerance (in minutes): 5 Please see discipline specific clinical documentation flowsheet for complete details for this therapy evaluation/treatment. SIGNATURE: JERMAINE Arreguin/Allie PATIENT NAME: Paloma Cannon DATE: September 02, 2017 TIME: 10:38 AM PAGER: [phone] Shelia Oviedo RN, RN 09/02/2017 3:42 PM Signed Nursing Progress Note Patient Name: Paloma Cannon Patient Location: [place] [address]- Daily Note: 1540- Patient resting in bed, call light in reach. This note was completed by: JEFF Flowers MD 09/03/2017 1:35 PM [facility] Progress Note PATIENT NAME: Paloma Cannon Interval History No acute events overnight, afebrile, HDS, Labs and micro reviewed INR: 1.6 Medications Current Facility-Administered Medications: pantoprazole DR 40 mg tab(s) (PROTONIX) 40 mg ORAL DAILY (6 AM) HYDROmorphone 0.5 mg injection (DILAUDID) 0.5 mg INTRAVENOUS q 6 H PRN fondaparinux 2.5 mg injection (ARIXTRA) 2.5 mg SUBCUTANEOUS q 24 HR DAPTOmycin 400 mg in NaCl (PF) 0.9% 8 mL (CUBICIN) 400 mg INTRAVENOUS q 24 HR diphenhydrAMINE 25 mg in D5W 50 mL 25 mg INTRAVENOUS PRN prochlorperazine 5 mg injection (COMPAZINE) 5 mg INTRAVENOUS q 4 H PRN metroNIDAZOLE 500 mg PREMIX piggyback (FLAGYL) 500 mg INTRAVENOUS q 8 H sulfamethoxazole-trimethoprim 800-160 mg 1 tablet (BACTRIM DS,SEPTRA DS) 1 tablet ORAL -WE- gabapentin 300 mg cap(s) (NEURONTIN) 300 mg ORAL q 8 H predniSONE 10 mg tab(s) (DELTASONE) 10 mg ORAL DAILY 0.9% NaCl 10 mL 10 mL INTRAVENOUS q 12 H 0.9% NaCl 20 mL 20 mL INTRAVENOUS PRN warfarin order for discharge OTHER PRN Physical Exam BP 138/66 Pulse 87 Temp 36.7 ?C (98 ?F) (Temporal Artery) Resp 18 Ht 160 cm (5' 2.99) Wt 95.8 kg (211 lb 3.2 oz) SpO2 92% BMI 37.42 kg/m2 General: No acute distress Neck: No JVD. Supple Lungs: Clear lungs without rhonchi, rales, wheezing Heart: Regular rate and rhythm. S1+S2 with no added sounds or murmurs. Abdomen: Soft abdomen, non tender with no visceromegaly Extremities: No edema. 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 ? 1) MRSE + E faecalis BSI attributed to tunneled catheter treated with 6 weeks of iv daptomycin in 02/02. Microbiology data: 09/01: blood x 2 NGTD 08/30: blood Jesus Alberto cath x 2 GPC clusters and E faecalis 08/28: blood x 2 NGTD 08/26: blood catheter MRSE, blood peripheral NGTD 08/25 blood x 2 E faecalis and now MRSE 2 of 2 sets from and periphery 08/25: stool C diff Prior adverse reaction to vancomycin - CAPRICE Culture from Samantha and Johnny catheter - Both catheters removed Plan: 1. Continue daptomycin to 6 mg/kg daily 2. If 09/01 blood cultures remain negative can replace pheresis catheter early next week. Will defer to IR about most appropriate site. ? 2) C difficile Colitis Multiple bouts of diarrhea on presentation, C difficile assay positive Plan: - Continue flagyl 500 mg TID for C diff x 14 days - contact precautions ? 3) Pancytopenia 2/ to cytoxan which has been discontinued per heme recs Plan: - Monitor counts - Hold cyclophosohamide -If patient's ANC falls below 500 with give one dose of Neupogen daily until the ANC is greater than 500 and then intermittently as needed. 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 stents and Endoglix AFX endograft at the inferior vena caval bifurcation) on warfarin,?extensive thrombectomy at outside hospital for right lower extremity and IVC thrombus Subtherapeutic INR Heparin not an option due to HIT Warfarin not an option due to anticipated line removal and placement in next few days Plan: - Appreciate vascular medicine recommendations As her Cr is currently normal, reasonable to use fondaparinux to avoid need for bival (IV access difficult as lines are being removed, and frequent lab draws). OK to use prophy dose fondaparinux 2.5mg SC QD as outlined above prior to procedure. After lines are replaced and no additional procedures are planned, then would anticipate bridging back to warfarin using full therapeutic fondaparinux 7.5mg QD. Monitor for bleeding. Daily CBC+plt, PT/INR, aPTT. ? Other: Diet: Regular GI AND DVT Prophylaxis: fondaparinux 2.5mg SC QD PT/OT Disposition Recs: N/A Code Status: Full code ? Veronica Ryan MD Internal Medicine PGY-3 Pager: v [phone] 11:45 AM 09/03/2017 DR. [facility], [facility]ITAL STAFF PHYSICIAN NOTE OF PERSONAL INVOLVEMENT IN CARE I have reviewed the documentation obtained and documented by the team healthcare provider (fellow, resident, nurse practitioner or physician child nutrition assistant) and I personally participated in the fernandes components. I have discussed the case and management of the patient's care and the note has been revised / addended to reflect my direct input. Continues to do well, 2.23 c/s NGTD x2 plt ct has stabilized Plan is for new exchange line next week Gael Simmons MD [facility] Medicine Staff PAGER: [phone] DATE of Service: 09/03/2017 TIME of Service: 1:35 PM Previous Version Sanchez Walker RN, RN 09/04/2017 7:15 AM Signed Nursing Progress Note Patient Name: Paloma Cannon Patient Location: [place] [id number] Pt left arm cleaned per protocol, Ultrasound set up per protocol. On first attempt infiltration occurred and IV removed and pressure applied. On second attempt 20g was successful. The IV was secured with a sterile dressing. Blood return was noted and flush was visualized. No complaints of pain and no s/s of infiltration. ABx treatment restarted. Will continue to monitor. This note was completed by: Sanchez Walker, RN Hailey Cunningham, 09/04/2017 11:22 AM Signed CARE MANAGEMENT PROGRESS NOTE SERVICE DATE: 09/04/2017 SERVICE TIME:11:11 LOS: 10 days IM letter given to patient on 09/04/2017. SIGNATURE: Hailey Cunningham, PATIENT NAME: Paloma Cannon DATE: September 04, 2017 TIME: 11:21 AM PAGER/CONTACT #: [phone] Paulette Naranjo CNP 09/04/2017 11:31 AM Addendum [facility]ED CONSULT PROGRESS NOTE Subjective Follow Up Regarding: APS, remote hx of HIT INTERVAL HPI and PERTINENT ROS: INR 1.4 aptt 35 hgb 8.3 platelets 46 S: Sitting up in bed, legs are stable. line placement in IR today Current Facility-Administered Medications: pantoprazole DR 40 mg tab(s) (PROTONIX) 40 mg ORAL DAILY (6 AM) HYDROmorphone 0.5 mg injection (DILAUDID) 0.5 mg INTRAVENOUS q 6 H PRN fondaparinux 2.5 mg injection (ARIXTRA) 2.5 mg SUBCUTANEOUS q 24 HR DAPTOmycin 400 mg in NaCl (PF) 0.9% 8 mL (CUBICIN) 400 mg INTRAVENOUS q 24 HR diphenhydrAMINE 25 mg in D5W 50 mL 25 mg INTRAVENOUS PRN prochlorperazine 5 mg injection (COMPAZINE) 5 mg INTRAVENOUS q 4 H PRN metroNIDAZOLE 500 mg PREMIX piggyback (FLAGYL) 500 mg INTRAVENOUS q 8 H sulfamethoxazole-trimethoprim 800-160 mg 1 tablet (BACTRIM DS,SEPTRA DS) 1 tablet ORAL -WE gabapentin 300 mg cap(s) (NEURONTIN) 300 mg ORAL q 8 H predniSONE 10 mg tab(s) (DELTASONE) 10 mg ORAL DAILY 0.9% NaCl 10 mL 10 mL INTRAVENOUS q 12 H 0.9% NaCl 20 mL 20 mL INTRAVENOUS PRN warfarin order for discharge OTHER PRN Objective PHYSICAL EXAM: BP 112/57 Pulse 94 Temp 36.4 ?C (97.6 ?F) (Oral) Resp 18 Ht 160 cm (5' 2.99) Wt 98.3 kg (216 lb 11.4 oz) SpO2 94% BMI 38.4 kg/m2 General: alert and oriented x3 Cardiac: RRR Respiratory: clear B/L Abdominal/GI: soft, non-tender Extremity:B/L trace edema w/chronic skin changes Skin: warm, dry Pulse/vascular exam: right + 2 rad/dp left + 2 rad/dp DATA: Diagnostic tests reviewed for today's visit: Most recent labs and imaging results. Most recent labs CBC, Coags, BMP, Mg, Phos Recent Labs 09/04/17 0422 09/03/17 0550 09/02/17 0515 WBC 2.06* 1.74* 1.58* HB 8.3* 8.5* 7.2* HCT 27.3* 28.1* 24.1* PLT 46* 57* 60* INR 1.4* 1.6* 1.7* APTT 35.4* 36.6* 37.3* MG -- -- 1.9 P -- -- 3.5 Impression/Recommendations 27 year old female well known to [facility] service for a hx of APS on long-term AC w/warfarin, IVC thrombosis, w/IVC stent, hepatic vein thrombosis, remote HIT and DAH w/scheduled plasmapheresis. Other pertinent past medical history include HF and CKD. Her warfarin is followed by [facility] given her APS. Dr. Andujar manages her APS/plasmapheresis scheduling. She presented on 08/25 w/high fevers, n/v and intolerance to PO. ? She was found to have positive blood cultures and positive c diff. In addition she was neutropenic in the setting of recently starting Cytoxan for her hx of DAH which is now being held in light of her BSI and neutropenia. ? VM was consulted for subtherapeutic INR and hx of HIT. Pt's INR was allowed to drift down for Samantha and plasmapheresis catheter removal. INR today is 1.4. Estimated Creatinine Clearance: 100.7 mL/min (based on Cr of 0.93). Plan discussed w/Dr. Mckinnon: continue Fondaparinux 2.5 mg for DVT prophylaxis once all invasive lines placed in IR could transition to therapeutic fondaparinux (7.5 mg) as a bridge to warfarin (home dose 5 and 7.5 mg) please check creatinine w/am labs prior to starting therapeutic fondaparinux as pt has had elevated renal function in the past [facility] follows her warfarin outpatient, will follow peripherally for now, please advise us 24 hrs prior to DC and can see and make DC recs SIGNATURE: Paulette Naranjo CNP PATIENT NAME: Paloma Aiken Davis DATE: September 04, 2017 TIME: 11:23 AM PAGER/CONTACT #: [phone] . Previous Version Dominique Wright MD 09/04/2017 11:33 AM Signed INFECTIOUS DISEASE CONSULT SERVICE PROGRESS NOTE Date: September 04, 2017 Patient Name: Paloma Cannon Interval History: Doing well over the weekend. Blood cultures 09/01 negative to date. No diarrhea. MEDICATIONS Current Facility-Administered Medications: pantoprazole DR 40 mg tab(s) (PROTONIX) 40 mg ORAL DAILY (6 AM) HYDROmorphone 0.5 mg injection (DILAUDID) 0.5 mg INTRAVENOUS q 6 H PRN DAPTOmycin 400 mg in NaCl (PF) 0.9% 8 mL (CUBICIN) 400 mg INTRAVENOUS q 24 HR diphenhydrAMINE 25 mg in D5W 50 mL 25 mg INTRAVENOUS PRN prochlorperazine 5 mg injection (COMPAZINE) 5 mg INTRAVENOUS q 4 H PRN metroNIDAZOLE 500 mg PREMIX piggyback (FLAGYL) 500 mg INTRAVENOUS q 8 H sulfamethoxazole-trimethoprim 800-160 mg 1 tablet (BACTRIM DS,SEPTRA DS) 1 tablet ORAL MO-WE- gabapentin 300 mg cap(s) (NEURONTIN) 300 mg ORAL q 8 H predniSONE 10 mg tab(s) (DELTASONE) 10 mg ORAL DAILY 0.9% NaCl 10 mL 10 mL INTRAVENOUS q 12 H 0.9% NaCl 20 mL 20 mL INTRAVENOUS PRN warfarin order for discharge OTHER PRN Current antibiotics: daptomycin 6?mg/kg daily Flagyl Examination: BP 112/57 Pulse 94 Temp 36.4 ?C (97.6 ?F) (Oral) Resp 18 Ht 160 cm (5' 2.99) Wt 98.3 kg (216 lb 11.4 oz) SpO2 94% BMI 38.4 kg/m2 Alert, oriented, appears well HEENT no conjunctival lesions, no thrush NECK supple, no LAD CHEST clear, right samantha now removed, dressing in place, left pheresis catheter removed, site benign HEART regular, no MRG ABDO soft, nontender, mild distension EXTREM bilateral LE symmetric erythema of lower legs to ankle, blanches to pressure, nontender ?? Laboratory data: WBC 2, HCT 27, PLTs 46 ?? Microbiology data: 09/01: blood x 2 NGTD 08/31: cath tip: <100 CFU E faecalis, <100 CFU Staph epi 08/30: blood Jesus Alberto cath x 2 GPC clusters and E faecalis 08/28: blood x 2 NGTD 08/26: blood catheter MRSE, blood peripheral NGTD 08/25 blood x 2 E faecalis and now MRSE 2 of 2 sets from and periphery 08/25: stool C diff ?? Imaging data: CXR reviewed, no infiltrates ?? ASSESSMENT:? 1. Antiphospholipid syndrome?(on plasmapheresis- PLEX every other week, prednisone?5/10mg) 2. 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 stents and Endoglix AFX endograft at the inferior vena caval bifurcation) on warfarin,?extensive thrombectomy at outside hospital for right lower extremity and IVC thrombus. 3. DAH x 5 4. HFpEF due to Rituximab. 5.?MRSE BSI attributed to tunneled catheter treated with 6 weeks of iv daptomycin in 02/02. ?? Admitted with fever and diarrhea. Found to have recurrence of C diff colitis and E faecalis+ MRSE?BSI. Suspected primary line infection (grew?from line in 12 hours compared to 20 hours from periphery). Presence of MRSE argues against GI source. UA not suggestive of urinary source. Samantha removed, but then with identification of jesus alberto/pheresis catheter infection. Jesus Alberto removed 08/31. Needs pheresis next week. ?? RECOMMENDATIONS:? 1. Continue daptomycin to 6 mg/kg daily 2. Continue flagyl 500 mg TID for C diff x [address] samantha and pheresis catheter toay. 4. Copat for Daptomycin for another 7 days. Signature: Dominique Wright MD September 04, 2017 11:30 a.m. Ignacio Novak MD 09/04/2017 11:58 AM [facility] Progress Note PATIENT NAME: Paloma Cannon Brief Plan for Today - Continue Daptomycin and Flagyl - Hold Fondaparinaux tomorrow for placement of TDC and Samantha - Plasmapheresis tentative on Monday Interval History No acute events overnight, afebrile, HDS, Labs and micro reviewed INR: 1.4 Medications Current Facility-Administered Medications: pantoprazole DR 40 mg tab(s) (PROTONIX) 40 mg ORAL DAILY (6 AM) HYDROmorphone 0.5 mg injection (DILAUDID) 0.5 mg INTRAVENOUS q 6 H PRN DAPTOmycin 400 mg in NaCl (PF) 0.9% 8 mL (CUBICIN) 400 mg INTRAVENOUS q 24 HR diphenhydrAMINE 25 mg in D5W 50 mL 25 mg INTRAVENOUS PRN prochlorperazine 5 mg injection (COMPAZINE) 5 mg INTRAVENOUS q 4 H PRN metroNIDAZOLE 500 mg PREMIX piggyback (FLAGYL) 500 mg INTRAVENOUS q 8 H sulfamethoxazole-trimethoprim 800-160 mg 1 tablet (BACTRIM DS,SEPTRA DS) 1 tablet ORAL - gabapentin 300 mg cap(s) (NEURONTIN) 300 mg ORAL q 8 H predniSONE 10 mg tab(s) (DELTASONE) 10 mg ORAL DAILY 0.9% NaCl 10 mL 10 mL INTRAVENOUS q 12 H 0.9% NaCl 20 mL 20 mL INTRAVENOUS PRN warfarin order for discharge OTHER PRN Physical Exam BP 112/57 Pulse 94 Temp 36.4 ?C (97.6 ?F) (Oral) Resp 18 Ht 160 cm (5' 2.99) Wt 98.3 kg (216 lb 11.4 oz) SpO2 94% BMI 38.4 kg/m2 General: No acute distress Neck: No JVD. Supple Lungs: Clear lungs without rhonchi, rales, wheezing Heart: Regular rate and rhythm. S1+S2 with no added sounds or murmurs. Abdomen: Soft abdomen, non tender with no visceromegaly Extremities: No edema. 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 ? 1) MRSE + E faecalis BSI attributed to tunneled catheter treated with 6 weeks of iv daptomycin in 02/02. Microbiology data: 09/01: blood x 2 NGTD 08/30: blood Jesus Alberto cath x 2 GPC clusters and E faecalis 08/28: blood x 2 NGTD 08/26: blood catheter MRSE, blood peripheral NGTD 08/25 blood x 2 E faecalis and now MRSE 2 of 2 sets from and periphery 08/25: stool C diff Prior adverse reaction to vancomycin - CAPRICE Culture from Samantha and Johnny catheter - Both catheters removed Plan: 1. Continue daptomycin to 6 mg/kg daily 2. Place Samantha and TDC on 09/05 - She is culture negative but held until tomorrow as she is on Fondaparinaux which needs to be held on day of procedure ? 2) C difficile Colitis Multiple bouts of diarrhea on presentation, C difficile assay positive Plan: - Continue flagyl 500 mg TID for C diff x 14 days - Continue contact precautions ? 3) Pancytopenia 2/2 to cytoxan which has been discontinued per heme recs Has fluctuating counts, low plts Plan: - Monitor counts - Hold cyclophosohamide -If patient's ANC falls below 500 with give one dose of Neupogen daily until the ANC is greater than 500 and then intermittently as needed. 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 stents and Endoglix AFX endograft at the inferior vena caval bifurcation) on warfarin,?extensive thrombectomy at outside hospital for right lower extremity and IVC thrombus Subtherapeutic INR Heparin not an option due to HIT Warfarin not an option due to anticipated line removal and placement in next few days Plan: - Appreciate vascular medicine recommendations As her Cr is currently normal, reasonable to use fondaparinux to avoid need for bival (IV access difficult as lines are being removed, and frequent lab draws). OK to use prophy dose fondaparinux 2.5mg SC QD as outlined above prior to procedure. After lines are replaced and no additional procedures are planned, then would anticipate bridging back to warfarin using full therapeutic fondaparinux 7.5mg QD. Monitor for bleeding. Other: Diet: Regular GI AND DVT Prophylaxis: fondaparinux 2.5mg SC QD PT/OT Disposition Recs: N/A Code Status: Full code ? Emelia Liu MD PGY-1 Internal Medicine [id number] September 04, 2017 11:34 AM [facility] STAFF PHYSICIAN NOTE OF PERSONAL INVOLVEMENT IN CARE I have reviewed the progress note obtained and documented by the resident and I personally participated in the fernandes components. I have discussed the case and management of the patient's care. The following comments revise or confirm relevant fernandes components of their note. 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 PLAN: Clinically doing well. Line replacement today, PLEX tomorrow or Monday. Continue to hold cyclophosphamide given pancytopenia. Continue flagyl for C diff and daptomycin for MRSE bacteremia. D/C planning. Resume hterapeutic fondaparinaux after line placement. SIGNATURE: Ignacio Novak MD PAGER: [phone] DATE of SERVICE: September 04, 2017 TIME of SERVICE: 11:55 AM Previous Version Veronica Ryan MD 09/04/2017 12:08 PM Signed PLAN OF CARE -Plan to place both line - Double Lumen Tunneled CVC and Dialysis/[facility] Double Lumen tomorrow 09/05/2017 (Discussed w/ IR and ID) -Plan to hold AM dose of fondaparinux -Plasmapharesis planned for Monday. Veronica Ryan MD Internal Medicine PGY-3 Previous Version Anahi Mai DTR [facility] 09/04/2017 1:03 PM Signed NUTRITION THERAPY FOLLOW-UP NOTE SERVICE DATE: 09/04/2017 SERVICE TIME: 950 Anthropometrics: Height: 160 cm (5' 2.99) Current Weight: Weight: 98.3 kg (216 lb 11.4 oz) Body mass index is 38.4 kg/(m2). Loss of lean body mass/visual muscle wasting: no Admitting Diagnosis: Fever, unspecified fever cause [R50.9] Present Diet Order: Clear Liquid Is the patient having any pain that is interfering with oral/enteral intake? No Allergies: ALLERGIES Allergen Reactions - Rhubarb Rash, Hives - Heparin Other: See Comments Per patient history of HIT - was on angiomax however then took l fondaparinux for bridging to coumadin. - Iv Contrast [Iodine] Other: See Comments shuts kidneys down per patient - Rituximab Other: See Comments Elevated cardiac enzymes Reason for Visit: Nutrient intake assessment: Current intake of meals: 50 - 100% Follow-up: Intervention from 08/30 Goal: Meet >75% of estimated needs was met Patient concerns/Issues: The patient states she has been eating well. She wanted to go down to cafeteria to get some meals. I let patient know she can have vouchers if on a regular diet and was able to go. She agreed. Will monitor for diet advancement. Date Kcal Pro 09/01 1133 56 gm 09/02 935 30 gm 09/03 1102 44 gm Nursing Admission Assessment Malnutrition Score Tool: 0 Plan of Care: Recommendation No problems noted at this time. Will screen again within 7 days Discharge Plan: Home on diet as ordered MNT Billing Type: Routine Care/15 min 1 unit SIGNATURE: MELVINA Ellison PATIENT NAME: Paloma Cannon DATE: September 04, 2017 TIME: 1:00 PM PAGER: [phone] Denise Huffman RN, RN 09/04/2017 6:31 PM Signed Nursing Progress Note Topic of Note: Daily Note Paolma Cannon [id number] Patient to go to tomorrow for a samantha and tunneled dialysis catheter placement. No other issues noted at this time, will monitor. This note was completed by: Denise Huffman RN Progress Notes ([facility]): Magdalena Lewis CNP, ELLIOTT 08/21/2017 4:28 PM Signed INR today prior to PLEX was 1.5 Message left for patient to take 7.5mg x 2 days, followed by 5mg x 2 days then check INR on 08/25. Attempted to call [facility] (patient's ), phone was no longer in service Magdalena Lewis CNP PROGRESS Observed: 08/21/2017 Status: COMPLETED Source: [place] 4:09 PM [facility] REPOSITORY HNO ID: [id number] Author: Lisseth Claudio MD Service: (none) Author Type: Physician Type: Progress Notes Filed: 08/21/2017 4:47 PM Note Text: APHERESIS TPA INSTILLATION AT THERAPEUTIC APHERESIS PATIENT NAME: Paloma Cannon Problem: Unable to aspirate from ports . Benefits, risks, alternatives of TPA instillation discussed. TPA instilled: 2 ml in red port and 2 ml in blue port. After 30 minutes, aspiration of TPA from red and blue ports with ease and success. Treatment started @ 1315 Signed by: Carmita Verdin RN APHERESIS THERAPEUTIC PLASMAPHERESIS PATIENT NAME: Paloma Cannon : 1990 AGE:[age] year old Gender: female Treatment #: [id number] Diagnosis: CAPS Primary Service/Physician: Hematology: Dr. Bessy Andujar Treatment performed at Apheresis Unit (CA 2). Patient arrived ambulatory. Patient identifier(s): Patient name Paloma Cannon, Date of - 1990. Procedure start time: 1215 ROS: fever: none, chills: none, breathing unlabored, no cough, no chest pains, no swelling in hands, no ankle swelling, general energy very fatigued sleeping alott, urine output Good. Poor appetite. PE: Patient alert and oriented. Catheter site dressing: Intact and Clean; Dressing changed X2 Catheter site dry; catheter tunnel non tender. Lungs: clear to auscultation, respirations normal, no oxygen, heart regular rhythm, peripheral edema none in hands or feet. Is the patient having any pain? No 0 on a scale of 0 to 10 Lab drawn at start: CBC, CMP and PT/INR Access: left, indwelling, IJ and red port Return: blue port Medications given: See [facility] audit report. Volume treated: 6563 ml whole blood Volume removed: 6563 ml plasma Volume replaced: 1000 ml NSS and 1545 ml FFP [id number] ACD used 676 ml. 10% calcium gluconate 30 ml. Net fluid balance: 29 ml Upon completion of treatment Flushed All with 10 ml NSS and 3 ml 4% Sodium Citrate. IV Access: port caps changes Vital signs: temp 98.1, pulse 97, BP 120/65, Resp 22/min Procedure end time: 1530 Patient tolerated well. Voiced no complaints. Patient discharged per wheelchair to home. N0ext treatment: 09/04/2017Patient instructed to continue abundant oral fluids.Carmita Verdin RN Signed by: Carmita Verdin RN DR. [facility] ST[facility], SR. HOSPITAL STAFF PHYSICIAN NOTE OF PERSONAL INVOLVEMENT IN CARE Ms. Cadet tolerated the treatment without any acute events. Her next plasma exchange will be in 2 weeks. Will continue to coordinate with Dr. Davidson. I reviewed the patients labs, medications and allergies prior to proceeding with this therapeutic treatment and discussed the case and parameters with the apheresis nurse. I have reviewed this therapeutic progress note documented by the apheresis nurse. I personally participated in all pertinent aspects and fernandes components of the therapeutic treatment. I was present during the treatment. Signature: Lisseth Claudio MD August 21, 2017 4:46 PM Pager: [phone] PROGRESS Observed: 08/21/2017 Status: COMPLETED Source: [place] 3:15 PM [facility] REPOSITORY HNO ID: [id number] Author: Elsa Mello (Coord) Service: (none) Author Type: Toolmaker Helper Type: Progress Notes Filed: 08/21/2017 3:15 PM Note Text: Patient had appointments today at [facility]. I provided a parking pass. Adriana Mello Patient Cable Driller [facility] [phone] / [phone] FACTOR VIII:C ASSAY Collected: 08/21/2017 Status: F Source: [place] 1:17 PM [facility] REPOSITORY TYPE CODE TESTS RESULT OUT OF REFERENCE UNITS RANGE LAB FVIIIC 50-173 % High Factor 240 VIII:C Assay Result Comment: The factor VIII clottable activity level is elevated This can be observed during the acute phase response. Persistent elevation of factor VIII, however, has been shown to be a risk factor for venous thrombosis. Suggest rechecking the factor VIII level in 1-2 months. Performed By: #### FVIIIC, LUPUSP #### [facility] [address] [address] LUPUS ANTICOAG PANEL Collected: 08/21/2017 Status: F Source: [place] 1:17 PM [facility] REPOSITORY TYPE CODE TESTS RESULT OUT OF RANGE REFERENCE UNITS LAB PSEC 9.7-13.0 sec High PT Sec 15.3 LAB INR 0.9-1.3 High PT INR 1.5 Result Comment: Vitamin K Antagonist (VKA) Therapeutic Range: INR 2 to 3 (Target INR of 2.5) Note: For patients treated with VKA drugs, such as warfarin, the [place] [employer] 2012 Guideline recommends a therapeutic INR range of 2 to 3 (target INR of 2.5). This recommendation includes high-risk patients with antiphospholipid syndrome with previous arterial or venous thromboembolism, current-generation mechanical or bioprosthetic aortic heart valve replacement. Note: Patients with mechanical aortic valve replacement and additional risk factors for thromboembolic events (atrial fibrillation, previous thromboembolism, LV dysfunction, hypercoagulable conditions) or an older generation mechanical AVR (i.e., ball in-Cage) or any mechanical MVR should have a INR therapeutic range of 2.5 to 3.5 (target INR of 3). Michael GH, et al. Chest 2012, 141:7S-47S Diogenes RA, et al. [facility] 2017, 70: 252-289 LAB APTT 23.0-32.4 sec APTT 31.9 Result Comment: Unfractionated Heparin Therapeutic Ranges: Standard Heparin Nomogram: 53 to 78 seconds (anti-Xa level of 0.3 to 0.7 U/ml) Low Dose/ACS Nomogram: 49 to 67 seconds (anti-Xa level of 0.2 to 0.5 U/ml) Stroke Treatment Nomogram: 49 to 67 seconds (anti-Xa level of 0.2 to 0.5 U/ml) Note: The APTT therapeutic range has been determined for the current lot of laboratory APTT reagent in use throughout the [facility]. LAB PLTNEU Negative Abnormal Alert PNP Positive LAB DRVSCN 32.7-46.7 sec High DRVVT Screen 90.5 LAB DRVRAT <1.21 High DRVVT Confirm 1.98 Ratio LAB DRVMIX 32.7-46.7 sec High DRVVT 1:1 Mix 61.7 Result Comment: Result rechecked. LAB HEXSCN 48.9-70.2 sec Hex Phase 61.2 Screen LAB HEXMIX 45.1-64.1 sec Hex Phase 50.0 Confirm LAB HEXDEL <9.0 delta sec High Hex Phase 11.2 Delta Result Comment: Result rechecked. LAB APTTSC 24.4-33.4 sec APTT Screen High 40.2 LAB IMPTT <33.5 sec Immed. PTT 1:1 Mix 32.4 LAB 1HRPTT <37.3 sec Incub. PTT 1:1 Mix 36.1 LAB TT <18.6 sec Thrombin Time 15.0 LAB LUPINT Interpretation (NOTE) Result Comment: Performing Pathologist: Mago Byrne Abnormal - see comment below. SIGNIFICANT FINDINGS: 1. Lupus anticoagulant: POSITIVE 2. Anticardiolipin antibody: IgG POSITIVE 3. Beta-2 Glycoprotein I antibody: IgG POSITIVE 4. Elevated factor VIII 5. Warfarin effect Laboratory testing was performed to evaluate the presence of a lupus anticoagulant and anti-phospholipid antibodies. Both the PT/INR and APTT values were prolonged. The PT/INR is most likely elevated due to the patient's history of warfarin therapy. The elevated APTT was not due to heparin or a direct Xa inhibitor, as an anti Xa assay was negative. A thrombin time was normal, so a direct thrombin inhibitor is unlikely to cause the observed results. There is no evidence for a factor VIII inhibitor. The factor VIII clottable activity level is elevated. This can be observed during the acute phase response. Persistent elevation of factor VIII, however, has been shown to be a risk factor for venous thrombosis. Suggest rechecking the factor VIII level in 1-2 months. LUPUS ANTICOAGULANT STUDIES: This specimen meets all four ISTH criteria, including a positive screening test, a positive mixing study, demonstration of phospholipid dependence and exclusion of other coagulopathies or inhibitors. The laboratory findings are diagnostic of a lupus anticoagulant. The lupus anticoagulant is a type of anti-phospholipid antibody that is considered to be a risk factor for thrombosis. The criteria for the diagnosis of a Lupus Anticoagulant, as detailed by the Subcommittee on Lupus Anticoagulants and Anti-Phospholipid Antibodies of the Scientific and Standardization Committee of the International Society on Thrombosis and Haemostasis (ISTH), are the following: (1) A prolonged phospholipid-dependent clotting test (screening test); (2) Evidence for an inhibitor (1:1 mix of patient:normal plasma); (3) Evidence that the inhibitor is phospholipid dependent and (4) Exclusion of specific inhibitors (ie, fVIII inhibitors, direct thrombin inhibitors, or heparin). Thromb. Haemost. 74:1185 (1995). ANTIPHOSPHOLIPID ANTIBODY STUDIES: The IgG anticardiolipin antibody titer was positive. The presence of an IgG anticardiolipin antibody (a type of antiphospholipid antibody) has been shown to be a risk factor for both venous and arterial thrombosis. The IgG Beta-2 Glycoprotein I antibody titer was positive. The presence of an IgG Beta-2 Glycoprotein I antibody (a type of antiphospholipid antibody) has been shown to be a risk factor for both venous and arterial thrombosis. The IgM anticardiolipin antibody titer was negative. The IgA anticardiolipin antibody titer was negative. The IgM Beta-2 Glycoprotein I antibody titer was negative. Antiphospholipid antibody syndrome (APS) is present if at least one clinical criteria and one laboratory criteria are met. The clinical criteria for APS include the presence of vascular thrombosis or morbidity. The laboratory criteria for APS include positive testing for one of the following on two or more occasions, at least 12 weeks apart: (1) lupus anticoagulant ; (2) anticardiolipin IgG or IgM in medium or high titer (>40 GPL or >40 MPL) ; (3) anti- beta 2 glycoprotein I IgG or IgM antibody. J. Thromb Haemost 4:295 (2006). THE FOLLOWING TESTS WERE ADDED AND ARE REPORTED SEPARATELY: Factor VIII LAB CARDG 0-9 GPL High IgG Cardiolipin Ab. 51 Result Comment: <10 GPL Negative 10-40 GPL Equivocal >40 GPL Positive The following results were obtained with the [employer] QUANTA Lite JOESPH IgG III JESSICA. Cardiolipin IgG values obtained with the different manufacturers' assay methods may not be used interchangeably. The mag nitude of the reported IgG levels cannot be correlated to an endpoint titer. LAB CARDM 0-11 MPL IgM Cardiolipin Ab. <9 Result Comment: <12 MPL Negative 12-40 MPL Equivocal >40 MPL Positive The following results were obtained with the [employer] QUANT[employer] Lite JOESPH IgM III JESSICA. Cardiolipin IgM values obtained with different manufacturers' assay methods may not be used interchangeably. The magnitu de of the reported IgM levels cannot be correlated to an endpoint titer. LAB CARDA 0-11 APL IgA Cardiolipin Ab. <9 Result Comment: <12 APL Negative 12-40 APL Equivocal >40 APL Positive The following results were obtained with an [employer] QUANT[employer] Lite JOESPH IgA III JESSICA. Cardiolipin IgA values obtained with different manufacturers' assay methods may not be used interchangeably. The magnitud e of the reported IgA levels cannot be correlated to an endpoint titer. LAB B2GPG <20 SGU High Beta2 Glycoprot IgG 140 Result Comment: < 20 SGU Negative 20-80 SGU Low Positive > 80 SGU High Positive These results were obtained with the [employer] QU[employer] Lite B2 GPI IgG JESSICA. B2 GPI IgG values obtained with different manufacturers' assay methods may not be used interchangeably. The magnitude of the repo rted IgG levels cannot be correlated to an endpoint titer. LAB B2GPM <20 SMU Beta2 Glycoprot IgM <9 Result Comment: < 20 SMU Negative 20-80 SMU Low Positive > 80 SMU High Positive These results were obtained with the [employer]va QUANTA Lite B2 GPI IgM JESSICA. B2 GPI IgM values obtained with different manufacturers' assay methods may not be used interchangeably. The magnitude of the repo rted IgM levels cannot be correlated to an endpoint titer. Performed By: #### FVIIIC, LUPUSP #### [facility] [address] [place], [place] [address] CBC AND DIFFERENTIAL Collected: 08/21/2017 Status: F Source: [place] 1:16 PM [facility] REPOSITORY TYPE CODE TESTS RESULT OUT OF REFERENCE UNITS RANGE LAB WBC 3.70-11.00 k/uL Low WBC 3.22 LAB RBC 3.90-5.20 m/uL Low RBC 3.50 LAB HGB 11.5-15.5 g/dL Low Hemoglobin 8.8 LAB HCT 36.0-46.0 % Low Hematocrit 28.0 LAB MCV 80.0-100.0 fL MCV 80.0 LAB MCH 26.0-34.0 pG Low MCH 25.1 LAB MCHC 30.5-36.0 g/dL MCHC 31.4 LAB RDWCV 11.5-15.0 % RDW-CV High 20.0 LAB PLTCT 150-400 k/uL Low Platelet Count 97 Result Comment: Result checked and verified No clot detected. LAB MPV 9.0-12.7 fL MPV <<DO NOT REPORT>> LAB ANEUT % Neut% 80.8 LAB AANEUT 1.45-7.50 k/uL Abs 2.60 Neut LAB ALYMP % 6.2 Lymph% LAB AALYMP 1.00-4.00 k/uL Abs 0.20 Low Lymph LAB AMONO % [place]% 8.7 LAB AAMONO <0.87 k/uL Abs 0.28 [place] LAB AEOS % 3.1 Eosin% LAB AAEOS <0.46 k/uL Abs 0.10 Eosin LAB ABASO % Baso% 1.2 LAB AABASO <0.11 k/uL Abs 0.04 Baso LAB AUNRBC 0 /100 WBC NRBCs 0.0 LAB ABNRBC <0.01 k/uL <0.01 Absolute nRBC LAB DTYP DTYPE Auto Diff Performed By: #### CBCDIF, CMP #### [facility] [address] [place] [id number] COMP METABOLIC PANEL Collected: 08/21/2017 Status: F Source: [place] 1:16 PM [facility] REPOSITORY TYPE CODE TESTS RESULT OUT OF REFERENCE UNITS RANGE LAB TP 6.3-8.0 g/dL Low Protein, Total 5.9 LAB ALB 3.9-4.9 g/dL Low Albumin 3.6 LAB CA 8.5-10.2 mg/dL Calcium, Total 8.6 LAB TBIL 0.2-1.3 mg/dL Bilirubin, Total 0.7 LAB ALKP 32-117 U/L Alkaline Phosphatase 61 LAB AST 13-35 U/L AST 15 LAB GLU 74-99 mg/dL Glucose 99 Result Comment: The [place] [employer] Association (ADA) provides guidance for cutoff values for fasting glucose and random glucose. The ADA defines fasting as no caloric intake for at least 8 hours. Fas ting plasma glucose results between 100 to 125 mg/dL indicate increased risk for diabetes (prediabetes). Fasting plasma glucose results greater than or equal to 126 mg/dL meet the criteria for diagnosis of diabetes. In the absence of unequivocal hyperglycemia, results should be confirmed by repeat testing. In a patient with classic symptoms of hyperglycemia or hyperglycemic crisis, random plasma glucose results greater than or equal to 200 mg/dL meet the criteria for diagnosis of diabetes. Reference: Standards of Medical Care in Diabetes 2016, [place] [employer] Association. Diabetes Care. 2016.39(Suppl 1). LAB BUN 7-21 mg/dL BUN 11 LAB CRET 0.58-0.96 mg/dL Creatinine 0.95 LAB NA 136-144 mmol/L Sodium 141 LAB K 3.7-5.1 mmol/L Potassium 3.7 LAB CL 97-105 mmol/L Chloride 101 LAB CO2 22-30 mmol/L CO2 23 LAB AGAP 9-18 mmol/L Anion Gap 17 LAB ALT 7-38 U/L ALT Low 6 LAB GFRAA eGFR- Amer. >60 LAB GFRNAA . eGFR-All Other Races >60 Result Comment: eGFR (Estimated GFR) Units of measure: mL/min/1.73 meters squared eGFR is derived from the reexpressed MDRD Study equation using the following parameters: serum creatinine, age, gender and race. The creatinine assay has been calibrated to be traceable to IDMS. An eGFR <60 mL/min/1.73m2 for >3 months is consistent with chronic kidney disease. Refer to KDOQI guidelines for clinical interpretation. In patients with unstable renal function, e.g. those with acute kidney injury, the eGFR may not accurately reflect actual GFR. Performed By: #### CBCDIF, CMP #### [facility] [address] [place] [address] CNOVSP Observed: 08/21/2017 Status: COMPLETED Source: [place] 12:30 PM [facility] REPOSITORY Visit (SP) Office ([facility]) NELLI ENRIQUEPALOMA Stewart ([id number]) 1990 F [facility] Date Time Provider Department 08/21/17 12:30 PM [facility] During your visit today, we recorded the following information about you: Temperature Pulse Respiration Blood pressure 98.1 degrees 77/minute 22/minute 120/65 Weight 92.7 kg Lisseth Claudio MD, MD 08/21/2017 4:47 PM Signed APHERESIS TPA INSTILLATION AT THERAPEUTIC APHERESIS PATIENT NAME: Paloma Cannon Problem: Unable to aspirate from ports . Benefits, risks, alternatives of TPA instillation discussed. TPA instilled: 2 ml in red port and 2 ml in blue port. After 30 minutes, aspiration of TPA from red and blue ports with ease and success. Treatment started @ 1315 Signed by: Carmita Verdin RN APHERESIS THERAPEUTIC PLASMAPHERESIS PATIENT NAME: Paloma Cannon : 1990 AGE:[age] year old Gender: female Treatment #: [id number] Diagnosis: CAPS Primary Service/Physician: Hematology: Dr. Bessy Andujar Treatment performed at Apheresis Unit ([facility] 2). Patient arrived ambulatory. Patient identifier(s): Patient name Paloma Cannon, Date of - 1990. Procedure start time: 1215 ROS: fever: none, chills: none, breathing unlabored, no cough, no chest pains, no swelling in hands, no ankle swelling, general energy very fatigued ANDquot;sleeping alottANDquot;, urine output Good. Poor appetite. PE: Patient alert and oriented. Catheter site dressing: Intact and Clean; Dressing changed X2 Catheter site dry; catheter tunnel non tender. Lungs: clear to auscultation, respirations normal, no oxygen, heart regular rhythm, peripheral edema none in hands or feet. Is the patient having any pain? No 0 on a scale of 0 to 10 Lab drawn at start: CBC, CMP and PT/INR Access: left, indwelling, IJ and red port Return: blue port Medications given: See [facility] audit report. Volume treated: 6563 ml whole blood Volume removed: 6563 ml plasma Volume replaced: 1000 ml NSS and 1545 ml FFP [id number] ACD used 676 ml. 10% calcium gluconate 30 ml. Net fluid balance: 29 ml Upon completion of treatment Flushed All with 10 ml NSS and 3 ml 4% Sodium Citrate. IV Access: port caps changes Vital signs: temp 98.1, pulse 97, BP 120/65, Resp 22/min Procedure end time: 1530 Patient tolerated well. Voiced no complaints. Patient discharged per wheelchair to home. N0ext treatment: 09/04/2017Patient instructed to continue abundant oral fluids.Carmita Verdin RN Signed by: Carmita Verdin RN DR. FRED STONE, SR. HOSPITAL STAFF PHYSICIAN NOTE OF PERSONAL INVOLVEMENT IN CARE Ms. Cadet tolerated the treatment without any acute events. Her next plasma exchange will be in 2 weeks. Will continue to coordinate with Dr. Davidson. I reviewed the patients labs, medications and allergies prior to proceeding with this therapeutic treatment and discussed the case and parameters with the apheresis nurse. I have reviewed this therapeutic progress note documented by the apheresis nurse. I personally participated in all pertinent aspects and fernandes components of the therapeutic treatment. I was present during the treatment. Signature: Lisseth Claudio MD August 21, 2017 4:46 PM Pager: [phone] Referring Provider: LISSETH CLAUDIO [[id number]] Allergies As of Date: 08/21/2017 Noted Allergy Reaction RHUBARB 10/24/2013 2 - Rash 4 - Hives HEPARIN 10/24/2013 14 - Other: See Comments Comments: Per patient history of HIT - was on angiomax however then took l fondaparinux for bridging to coumadin. IV CONTRAST (IODINE) 2016 14 - Other: See Comments Comments: shuts kidneys down per patient RITUXIMAB 11/09/2016 14 - Other: See Comments Comments: Elevated cardiac enzymes Date Reviewed: 08/21/2017 Reviewed by: Carmita (Rn) JEFF Verdin - Fully Assessed Reason for Visit: Plasmapheresis [1323] Primary Visit Diagnosis:APS (antiphospholipid syndrome) ([facility]) [D68.61] Order(s):LUPUS ANTICOAG PL [SQLUPUSP] Order #: [id number]. #:[id number] CBC + DIFF [SQCBCDIF] Order #: [id number]. #:[id number] COMP METABOLIC PANEL [SQCMP] Order #: [id number]. #:[id number] [facility] N[facility]SING COMMUNICATION [[id number]] Order #: [id number]: 1 TREATMENT PARAMETERS [[id number]] Order #: [id number]: 1 [facility] [[id number]] Order #: [id number]: 1 STANDING [] diphenhydrAMINE 50 mg injection (BENADRYL)Disp: Rfl: [] hydrocortisone sodium succinate (PF) 100 mg injection (Solu-CORTEF)Disp: Rfl: [] albumin (5%) 50 g infusionDisp: Rfl: citrate dextrose solution (ACD-A) infusionDisp: Rfl: 0.9% NaCl 10-20 mLDisp: Rfl: sodium citrate 4% 3-6 mL catheter lockDisp: Rfl: [] alteplase (CATHFLO) injection 2 mgDisp: Rfl: [] alteplase (CATHFLO) injection 2 mgDisp: Rfl: Prescriptions as of 08/21/2017 Sig: CYCLOPHOSPHAMIDE 50 MG CAPSULE Take by mouth daily. 2 caps -* PREDNISONE 5 MG TABLET Take by mouth daily. 20 mg - * SULFAMETHOXAZOLE 800 MG-TRIME* Take 1 tablet by mouth every * CARVEDILOL 25 MG TABLET Take 1 tablet by mouth twice * HYDRALAZINE 100 MG TABLET Take 1 tablet by mouth every * AMLODIPINE 5 MG TABLET Take 1 tablet by mouth once d* TORSEMIDE 20 MG TABLET Take 2 tablets by mouth once * FENTANYL 25 MCG/HR TRANSDERMA* Apply 1 Patch as directed elaine* GABAPENTIN 300 MG CAPSULE Please take gabapentin 200 mg* Patient taking differently: 300 mg three times daily. FLUTICASONE 50 MCG/ACTUATION * Use 1 [place] in each nostril o* WARFARIN 5 MG TABLET take by mouth as directed in * Patient taking differently: Take 5 mg by mouth once daily* PANTOPRAZOLE 40 MG TABLET,DEL* Take 1 tablet by mouth DAILY * ISOSORBIDE MONONITRATE ER 30 * Take 2 tablets by mouth once * MISCELLANEOUS MEDICAL SUPPLY * 1 package 30 - 40 mmHg pressu* CETIRIZINE 10 MG TABLET Take 1 tablet by mouth once d* Patient taking differently: Take 10 mg by mouth twice lis* SENNOSIDES 8.6 MG TABLET Take 1 tablet by mouth twice * More... More... Problem List As Of Date 08/21/2017 Noted Resolved Catastrophic Antiphospholipid antibody syndrome*INVALID FOR*01/24/2017 Priority: C More... 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 Severe Gastritis [K29.70] INVALID FOR*01/11/2017 Priority: F More... More... More... More... More... Anasarca [R60.1] INVALID FOR*01/24/2017 Priority: E More... More... More... More... More... More... 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 More... More... More... More... More... More... More... More... Hx pulmonary embolism [Z86.711] INVALID FOR*01/11/2017 Priority: C More... H/O deep vein thrombophlebitis of lower extremi*INVALID FOR*03/12/2015 Priority: C More... More... More... More... More... More... Hemoptysis [R04.2] INVALID FOR*12/27/2016 More... Elevated troponin [R74.8] INVALID FOR*01/11/2017 Anemia [D64.9] INVALID FOR* Priority: C More... Thrombocytopenia (HCC) [D69.6] INVALID FOR*01/11/2017 More... SUMMARY INVALID FOR*01/24/2017 Priority: A More... SIRS (systemic inflammatory response syndrome) *INVALID FOR*04/15/2015 Priority: D More... DVT (deep venous thrombosis) (HCC) [I82.409] INVALID FOR*01/11/2017 Priority: D More... Iron deficiency anemia [D50.9] INVALID FOR*01/11/2017 Priority: F More... Productive cough, hemoptysis [R04.2] INVALID FOR*01/04/2017 Priority: B Community acquired pneumonia [J18.9] INVALID FOR*01/11/2017 Respiratory failure with hypoxia (HCC) [J96.91] INVALID FOR*01/11/2017 Priority: B More... SOB (shortness of breath) [R06.02] INVALID FOR*12/28/2016 HTN (hypertension) [I10] INVALID FOR* Priority: E More... CAPRICE (acute kidney injury) (HCC) [N17.9] INVALID FOR* Priority: B More... 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 Hx of gastritis [Z87.19] INVALID FOR*01/11/2017 More... Nausea and vomiting [R11.2] INVALID FOR*04/28/2017 Priority: B More... 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 Anemia associated with acute blood loss [D62] INVALID FOR*01/11/2017 More... More... Acute on chronic respiratory failure with hypox*INVALID FOR* Priority: A More... Abdominal pain [R10.9] INVALID FOR* Priority: E More... Vomiting [R11.10] INVALID FOR*01/04/2017 Antiphospholipid syndrome (HCC) [D68.61] INVALID FOR*01/04/2017 Severe protein-calorie malnutrition (HCC) [E43] INVALID FOR*03/12/2017 Priority: B Hypoxia [R09.02] INVALID FOR*01/11/2017 Acute hypoxemic respiratory failure (HCC) [J96.*INVALID FOR*12/28/2016 More... Personal history of DVT (deep vein thrombosis) *INVALID FOR*01/11/2017 More... History of heparin-induced thrombocytopenia [Z8*INVALID FOR* Priority: C More... Hospital-acquired pneumonia [J18.9] INVALID FOR*12/28/2016 Priority: B More... Hypoxemia [R09.02] INVALID FOR*01/11/2017 (HFpEF) heart failure with preserved ejection f*INVALID FOR* Priority: C More... Headache [R51] INVALID FOR*01/18/2017 Priority: I More... More... Peripheral neuropathy (HCC) [G62.9] INVALID FOR* Priority: G Joint pain [M25.50] INVALID FOR*01/11/2017 More... Diffuse arthralgia [M25.50] INVALID FOR*01/11/2017 Priority: C More... CKD (chronic kidney disease) stage 3, GFR 30-59*INVALID FOR* Priority: C More... Obesity, Class III, BMI >= 40 (morbid obesity) *INVALID FOR* Priority: F Hypertensive emergency [I16.1] INVALID FOR*12/05/2016 More... Acute on chronic diastolic congestive heart ena*INVALID FOR*01/11/2017 More... APS (antiphospholipid syndrome) (HCC) [D68.61] INVALID FOR* Priority: C More... Elevated troponin level [R74.8] INVALID FOR*12/05/2016 More... Hypertensive urgency [I16.0] INVALID FOR*12/05/2016 PNA (pneumonia) [J18.9] INVALID FOR*12/27/2016 Acute respiratory failure with hypoxia (HCC) [J*INVALID FOR*12/27/2016 Clostridium difficile colitis [A04.72] INVALID FOR*12/28/2016 Hemoptysis [R04.2] INVALID FOR*01/20/2017 More... More... Supratherapeutic INR [R79.1] INVALID FOR*04/28/2017 Priority: B More... Cholelithiasis [K80.20] INVALID FOR*01/24/2017 Priority: B More... Ecchymosis of right eye [S05.11XA] INVALID FOR*01/18/2017 Priority: H More... Anticoagulation management encounter [Z51.81, Z*INVALID FOR* Priority: D Acute respiratory failure (HCC) [J96.00] INVALID FOR*02/10/2017 Priority: A More... Pulmonary HTN (HCC) [I27.20] INVALID FOR* Priority: F More... GERD (gastroesophageal reflux disease) [K21.9] INVALID FOR* Priority: E More... RUQ abdominal pain [R10.11] INVALID FOR* Priority: E More... Hemoptysis [R04.2] INVALID FOR*03/11/2017 More... Diarrhea [R19.7] INVALID FOR* Priority: E More... Bacteremia [R78.81] INVALID FOR* Priority: B More... 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 Edema [R60.9] INVALID FOR* Priority: A More... Flu-like symptoms [R68.89] INVALID FOR*06/10/2017 Hypercoagulable state (HCC) [D68.59] INVALID FOR* Priority: B More... Healthcare maintenance [Z00.00] INVALID FOR* More... Iron deficiency anemia secondary to inadequate *INVALID FOR* Priority: D More... Encounter Status:Closed by LISSETH CLAUDIO MD on 08/21/17 HOSP Observed: 08/21/2017 Status: COMPLETED Source: [place] 12:00 AM [facility] REPOSITORY Patient Update ([facility]) NELLI PALOMA CANNON ([id number]) 1990 F PTR Date Time Provider Department 08/21/17 ELSA MELLO ([place]) [facility] During your visit today, we recorded the following information about you: Elsa Mello, Coord 08/21/2017 3:15 PM Signed Patient had appointments today at [facility]. I provided a parking pass. Adriana Mello Patient Cable Driller [facility] [phone] / [phone] Allergies As of Date: 08/21/2017 Noted Allergy Reaction RHUBARB 10/24/2013 2 - Rash 4 - Hives HEPARIN 10/24/2013 14 - Other: See Comments Comments: Per patient history of HIT - was on angiomax however then took l fondaparinux for bridging to coumadin. IV CONTRAST (IODINE) 2016 14 - Other: See Comments Comments: shuts kidneys down per patient RITUXIMAB 11/09/2016 14 - Other: See Comments Comments: Elevated cardiac enzymes Date Reviewed: 08/07/2017 Reviewed by: Angella (Rn) JEFF Ortiz - Fully Assessed Reason for Visit: Cancer Patient Support [4087] Prescriptions as of 08/21/2017 Sig: CYCLOPHOSPHAMIDE 50 MG CAPSULE Take by mouth daily. 2 caps -* PREDNISONE 5 MG TABLET Take by mouth daily. 20 mg - * SULFAMETHOXAZOLE 800 MG-TRIME* Take 1 tablet by mouth every * CARVEDILOL 25 MG TABLET Take 1 tablet by mouth twice * HYDRALAZINE 100 MG TABLET Take 1 tablet by mouth every * AMLODIPINE 5 MG TABLET Take 1 tablet by mouth once d* TORSEMIDE 20 MG TABLET Take 2 tablets by mouth once * FENTANYL 25 MCG/HR TRANSDERMA* Apply 1 Patch as directed elaine* GABAPENTIN 300 MG CAPSULE Please take gabapentin 200 mg* Patient taking differently: 300 mg three times daily. FLUTICASONE 50 MCG/ACTUATION * Use 1 [place] in each nostril o* WARFARIN 5 MG TABLET take by mouth as directed in * Patient taking differently: Take 5 mg by mouth once daily* PANTOPRAZOLE 40 MG TABLET,DEL* Take 1 tablet by mouth DAILY * ISOSORBIDE MONONITRATE ER 30 * Take 2 tablets by mouth once * MISCELLANEOUS MEDICAL SUPPLY * 1 package 30 - 40 mmHg pressu* CETIRIZINE 10 MG TABLET Take 1 tablet by mouth once d* Patient taking differently: Take 10 mg by mouth twice lis* SENNOSIDES 8.6 MG TABLET Take 1 tablet by mouth twice * More... More... Problem List As Of Date 08/21/2017 Noted Resolved Catastrophic Antiphospholipid antibody syndrome*INVALID FOR*01/24/2017 Priority: C More... 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 Severe Gastritis [K29.70] INVALID FOR*01/11/2017 Priority: F More... More... More... More... More... Anasarca [R60.1] INVALID FOR*01/24/2017 Priority: E More... More... More... More... More... More... 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 More... More... More... More... More... More... More... More... Hx pulmonary embolism [Z86.711] INVALID FOR*01/11/2017 Priority: C More... H/O deep vein thrombophlebitis of lower extremi*INVALID FOR*03/12/2015 Priority: C More... More... More... More... More... More... Hemoptysis [R04.2] INVALID FOR*12/27/2016 More... Elevated troponin [R74.8] INVALID FOR*01/11/2017 Anemia [D64.9] INVALID FOR* Priority: C More... Thrombocytopenia (HCC) [D69.6] INVALID FOR*01/11/2017 More... SUMMARY INVALID FOR*01/24/2017 Priority: A More... SIRS (systemic inflammatory response syndrome) *INVALID FOR*04/15/2015 Priority: D More... DVT (deep venous thrombosis) (HCC) [I82.409] INVALID FOR*01/11/2017 Priority: D More... Iron deficiency anemia [D50.9] INVALID FOR*01/11/2017 Priority: F More... Productive cough, hemoptysis [R04.2] INVALID FOR*01/04/2017 Priority: B Community acquired pneumonia [J18.9] INVALID FOR*01/11/2017 Respiratory failure with hypoxia (HCC) [J96.91] INVALID FOR*01/11/2017 Priority: B More... SOB (shortness of breath) [R06.02] INVALID FOR*12/28/2016 HTN (hypertension) [I10] INVALID FOR* Priority: E More... CAPRICE (acute kidney injury) (HCC) [N17.9] INVALID FOR* Priority: B More... 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 Hx of gastritis [Z87.19] INVALID FOR*01/11/2017 More... Nausea and vomiting [R11.2] INVALID FOR*04/28/2017 Priority: B More... 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 Anemia associated with acute blood loss [D62] INVALID FOR*01/11/2017 More... More... Acute on chronic respiratory failure with hypox*INVALID FOR* Priority: A More... Abdominal pain [R10.9] INVALID FOR* Priority: E More... Vomiting [R11.10] INVALID FOR*01/04/2017 Antiphospholipid syndrome (HCC) [D68.61] INVALID FOR*01/04/2017 Severe protein-calorie malnutrition (HCC) [E43] INVALID FOR*03/12/2017 Priority: B Hypoxia [R09.02] INVALID FOR*01/11/2017 Acute hypoxemic respiratory failure (HCC) [J96.*INVALID FOR*12/28/2016 More... Personal history of DVT (deep vein thrombosis) *INVALID FOR*01/11/2017 More... History of heparin-induced thrombocytopenia [Z8*INVALID FOR* Priority: C More... Hospital-acquired pneumonia [J18.9] INVALID FOR*12/28/2016 Priority: B More... Hypoxemia [R09.02] INVALID FOR*01/11/2017 (HFpEF) heart failure with preserved ejection f*INVALID FOR* Priority: C More... Headache [R51] INVALID FOR*01/18/2017 Priority: I More... More... Peripheral neuropathy (HCC) [G62.9] INVALID FOR* Priority: G Joint pain [M25.50] INVALID FOR*01/11/2017 More... Diffuse arthralgia [M25.50] INVALID FOR*01/11/2017 Priority: C More... CKD (chronic kidney disease) stage 3, GFR 30-59*INVALID FOR* Priority: C More... Obesity, Class III, BMI >= 40 (morbid obesity) *INVALID FOR* Priority: F Hypertensive emergency [I16.1] INVALID FOR*12/05/2016 More... Acute on chronic diastolic congestive heart ena*INVALID FOR*01/11/2017 More... APS (antiphospholipid syndrome) (HCC) [D68.61] INVALID FOR* Priority: C More... Elevated troponin level [R74.8] INVALID FOR*12/05/2016 More... Hypertensive urgency [I16.0] INVALID FOR*12/05/2016 PNA (pneumonia) [J18.9] INVALID FOR*12/27/2016 Acute respiratory failure with hypoxia (HCC) [J*INVALID FOR*12/27/2016 Clostridium difficile colitis [A04.72] INVALID FOR*12/28/2016 Hemoptysis [R04.2] INVALID FOR*01/20/2017 More... More... Supratherapeutic INR [R79.1] INVALID FOR*04/28/2017 Priority: B More... Cholelithiasis [K80.20] INVALID FOR*01/24/2017 Priority: B More... Ecchymosis of right eye [S05.11XA] INVALID FOR*01/18/2017 Priority: H More... Anticoagulation management encounter [Z51.81, Z*INVALID FOR* Priority: D Acute respiratory failure (HCC) [J96.00] INVALID FOR*02/10/2017 Priority: A More... Pulmonary HTN (HCC) [I27.20] INVALID FOR* Priority: F More... GERD (gastroesophageal reflux disease) [K21.9] INVALID FOR* Priority: E More... RUQ abdominal pain [R10.11] INVALID FOR* Priority: E More... Hemoptysis [R04.2] INVALID FOR*03/11/2017 More... Diarrhea [R19.7] INVALID FOR* Priority: E More... Bacteremia [R78.81] INVALID FOR* Priority: B More... 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 Edema [R60.9] INVALID FOR* Priority: A More... Flu-like symptoms [R68.89] INVALID FOR*06/10/2017 Hypercoagulable state (HCC) [D68.59] INVALID FOR* Priority: B More... Healthcare maintenance [Z00.00] INVALID FOR* More... Iron deficiency anemia secondary to inadequate *INVALID FOR* Priority: D More... Encounter Status:Closed by ELSA MELLO on 08/21/17 PROTHROMBIN TIME W/INR Collected: 08/16/2017 Status: F Source: [place] 8:20 AM [facility] REPOSITORY Order Comment: MEDOUT/PORT DRAW TYPE CODE TESTS RESULT OUT OF REFERENCE UNITS RANGE LAB L300.4150 11.7-14.9 SECONDS High PROTIME 37.8 LAB L300.4200 High alert INR 4.0 Result Comment: CRITICAL VALUE VERIFIED. CALLED TO NADINE PATEL 08/16/17 0915 Zhou Nava. RESULTS READ BACK BY SAME. Performed By: #### L300.3900 #### [place] [address] [place], [address] PROTHROMBIN TIME W/INR Collected: 08/11/2017 Status: F Source: [place] 8:55 AM [facility] REPOSITORY Order Comment: Order Date: 08/11/17 Comments: FAX RESULTS TO Giacomo LEWIS [phone] TYPE CODE TESTS RESULT OUT OF RANGE REFERENCE UNITS LAB L300.4150 11.7-14.9 SECONDS High PROTIME 29.9 LAB L300.4200 Normal INR 3.0 Performed By: #### L300.3900 #### [facility] [address] [place], [address] PROGRESS Observed: 08/10/2017 Status: COMPLETED Source: [place] 2:01 PM [facility] REPOSITORY HNO ID: [id number] Author: Kem Andujar Service: (none) Author Type: Physician Type: Progress Notes Filed: 08/10/2017 2:05 PM Note Text: Established Patient Paloma Cannon August 07, 2017 ? HPI Paloma Cannon was seen today in apheresis for her catastrophic antiphospholipid syndrome. She continues to receive plasma exchange, which is now being performed?every 2?weeks to attempt to lower?her antiphospholipid antibody level. When last checked on 05/30 her APL levels were still quite high. However, she has felt generally well. She was seen yesterday by Dr Alicea who recommended a course of oral cyclophosphamide for her pulmonary hemorrhage. She has been tolerating this reasonably well with only occasional nausea. She has had some hair loss and is wearing away. It has now been almost 2 months since her last hospitalization which is encouraging. She denies any significant hemoptysis in the meantime. Her antiphospholipid antibodies were checked 1 month ago and were still high but she is due for repeat studies this month. Current Outpatient Prescriptions on File Prior to Visit: cyclophosphamide (CYTOXAN) 50 mg capsule Take by mouth daily. 2 caps - 7 days; 3 caps- 7 days; 4 caps daily thereafter predniSONE (DELTASONE) 5 mg tablet Take by mouth daily. 20 mg - Jun; 15 mg - Jul; 10 mg - Aug; 5 mg - Sep onwards sulfamethoxazole-trimethoprim (BACTRIM DS) 800-160 mg per tablet Take 1 tablet by mouth every Monday,Monday,Monday. carvedilol (COREG) 25 mg tablet Take 1 tablet by mouth twice daily with meals. HOLD FOR SBP <110 AND HR <60 hydrALAZINE (APRESOLINE) 100 mg tablet Take 1 tablet by mouth every 8 hours. HOLD FOR SBP <110 amLODIPine (NORVASC) 5 mg tablet Take 1 tablet by mouth once daily. HOLD FOR SBP <120 torsemide (DEMADEX) 20 mg tablet Take 2 tablets by mouth once daily. fentaNYL (DURAGESIC) 25 mcg/hr Apply 1 Patch as directed every 72 hours. gabapentin (NEURONTIN) 300 mg capsule Please take gabapentin 200 mg three times daily for 3 days.If you tolerate it, increase to 300 mg three times a day for 3 days.If you tolerate it, increase to 600 mg at bedtime and 300 mg daytime for 3 days.If you tolerate it, increase to 600 mg three times a day for 3 days.If you tolerate it, increase to 900 mg at bedtime and 600 mg daytime for 3 days.If you tolerate it, increase to 900 mg three times a day for 3 days. (Patient taking differently: 300 mg three times daily.) fluticasone (FLONASE) 50 mcg/actuation nasal spray Use 1 [place] in each nostril once daily. warfarin (COUMADIN) 5 mg tablet take by mouth as directed in the evening to keep INR between 2.0-3.0 (Patient taking differently: Take 5 mg by mouth once daily. take by mouth as directed in the evening to keep INR between 2.0-3.0 Apheresis weeks takes 7.5 mg x3 days and holds 2-3 days prior to apheresis.) pantoprazole DR (PROTONIX) 40 mg tablet Take 1 tablet by mouth DAILY (6 AM). isosorbide mononitrate ER (IMDUR) 30 mg 24 hr tablet Take 2 tablets by mouth once daily. Please hold if your blood pressure is less than 120/80. Miscellaneous Medical Supply [facility] 1 package 30 - 40 mmHg pressure panty hose compression stockings. cetirizine 10 mg tablet Take 1 tablet by mouth once daily. (Patient taking differently: Take 10 mg by mouth twice daily. being taper up on the dosage of medication per order. ) senna 8.6 mg tab Take 1 tablet by mouth twice daily as needed. PHYSICAL EXAMINATION: General appearance: Well appearing, alert, in no acute distress, well-hydrated, well nourished., Obese Skin: Skin color, texture, turgor normal, no suspicious rashes or lesions Head: Normocephalic, no masses, lesions, tenderness or abnormalities Eyes: Anicteric sclera. Pupils are equally round and reactive to light. Extraocular movements are intact. Ears: External ears normal, canals clear, Not examined Nose/Sinuses: Not examined Oropharynx: Lips, mucosa, and tongue normal, teeth and gums normal, oropharynx normal Neck: Supple, no adenopathy; thyroid symmetric, normal size, no bruits Back: Normal exam, not examined Lungs: Lungs clear to auscultation. No wheezing, rhonchi, rales Heart: RRR without murmur, gallop, or rubs. No ectopy Abdomen: Deferred Extremities: No deformities, edema, skin discoloration, clubbing or cyanosis. Good capillary refill. Musculoskeletal: No joint swelling, deformity, or tenderness Peripheral pulses: Not examined Neuro: Negative., Gait normal. Reflexes normal and symmetric. Sensation grossly intact. WBC (k/uL) Date Value 08/07/2017 5.65 RBC (m/uL) Date Value 08/07/2017 3.80 (L) Hemoglobin (g/dL) Date Value 08/07/2017 9.4 (L) Hematocrit (%) Date Value 08/07/2017 30.6 (L) MCV (fL) Date Value 08/07/2017 80.5 MCH (pG) Date Value 08/07/2017 24.7 (L) MCHC (g/dL) Date Value 08/07/2017 30.7 RDW-CV (%) Date Value 08/07/2017 19.0 (H) Platelet Count (k/uL) Date Value 08/07/2017 143 (L) MPV (fL) Date Value 08/07/2017 11.5 Impression Overall, Paloma is doing reasonably well and is encouraging that she has avoided any hospitalization over the last 2 months. I will await the results of her antiphospholipid antibody testing this month. We will continue the cyclophosphamide and plasma exchange for the time being. I will see her again in pheresis in 2-3 weeks. Kem Andujar MD August 10, 2017 2:05 PM PROGRESS Observed: 08/07/2017 Status: COMPLETED Source: [place] 3:40 PM [facility] REPOSITORY HNO ID: [id number] Author: Elsa Mello (Coord) Service: (none) Author Type: Toolmaker Helper Type: Progress Notes Filed: 08/10/2017 3:40 PM Note Text: Patient had appointments today at [facility]. I provided a parking pass. Adriana Mello Patient Cable Driller [facility] [phone] / [phone] PROGRESS Observed: 08/07/2017 Status: COMPLETED Source: [place] 12:58 PM [facility] REPOSITORY HNO ID: [id number] Author: Lisseth Claudio MD Service: (none) Author Type: Physician Type: Progress Notes Filed: 08/07/2017 3:50 PM Note Text: APHERESIS THERAPEUTIC PLASMAPHERESIS PATIENT NAME: Paloma Cannon : 1990 AGE:[age] year old Gender: female Treatment #: 82 Diagnosis: Antiphospholipid antibody syndrome Primary Service/Physician: Hematology: Dr. Bessy Andujar Treatment performed at Apheresis Unit ([place] 2). Patient arrived by chair and with family. Patient identifier(s): Patient name Paloma Cannon, Date of - 1990. Procedure start time: 1212 ROS: fever: none, chills: none, breathing breathing as usual, no cough, no chest pains, no swelling in hands, no ankle swelling, general energy same, urine output Good. PE: Patient alert and oriented. Catheter site dressing: Dressing changed; Dressing changed. Catheter site dry and no drainage; catheter tunnel non tender. Lungs: clear to auscultation, respirations normal, nasal cannula 2 liters/minute PRN, heart regular rhythm, peripheral edema none in hands or feet. Is the patient having any pain? No 0 on a scale of 0 to 10 Lab drawn at start: CBC, CMP, PT/INR and PTT Access: left, indwelling and red port Return: left, indwelling and blue port Medications given: See [facility] audit report. Volume treated: 7995 ml whole blood Volume removed: 3916 ml plasma Volume replaced: 1000 ml NSS , 1000 ml 5% Albumin and 1543 ml FFP Extra fluids: 0 NSS ml. via separate IV. ACD used 799 ml. 10% calcium gluconate 30 ml. Net fluid balance: positive and 13 ml Cathflo inserted into red port on catheter in RCW. Upon completion of treatment: Labs drawn None Flushed All with 10 ml NSS and 6 ml 4% Sodium Citrate. IV Access: All and port caps changes Vital signs: temp 36.9, pulse 91, BP 148/71, Resp 20/min Procedure end time: 1515 Patient tolerated well. Voiced no complaints. Patient discharged by chair and with family to home. Next treatment: 2 weeks Signed by: Angella Ortiz RN DR. FRED STONE, SR. HOSPITAL STAFF PHYSICIAN NOTE OF PERSONAL INVOLVEMENT IN CARE Ms. Cannon tolerated the treatment without complaint. No acute events. She denies any recent hemoptysis. Her next plasma exchange will be in 2 weeks. Will continue to coordinate with Dr. Andujar. I reviewed the patients labs, medications and allergies prior to proceeding with this therapeutic treatment and discussed the case and parameters with the apheresis nurse. I have reviewed this therapeutic progress note documented by the apheresis nurse. I personally participated in all pertinent aspects and fernandes components of the therapeutic treatment. I was present during the treatment. Signature: Lisseth Claudio MD August 07, 2017 3:49 PM Pager: [phone] CBC AND DIFFERENTIAL Collected: 08/07/2017 Status: F Source: [place] 12:57 PM [facility] REPOSITORY TYPE CODE TESTS RESULT OUT OF REFERENCE UNITS RANGE LAB WBC 3.70-11.00 k/uL WBC 5.65 LAB RBC 3.90-5.20 m/uL Low RBC 3.80 LAB HGB 11.5-15.5 g/dL Low Hemoglobin 9.4 LAB HCT 36.0-46.0 % Low Hematocrit 30.6 LAB MCV 80.0-100.0 fL MCV 80.5 LAB MCH 26.0-34.0 pG Low MCH 24.7 LAB MCHC 30.5-36.0 g/dL MCHC 30.7 LAB RDWCV 11.5-15.0 % RDW-CV High 19.0 LAB PLTCT 150-400 k/uL Low Platelet Count 143 LAB MPV 9.0-12.7 fL MPV 11.5 LAB ANEUT % Neut% 89.6 LAB AANEUT 1.45-7.50 k/uL Abs Neut 5.06 LAB ALYMP % Lymph% 2.5 LAB AALYMP 1.00-4.00 k/uL Low Abs Lymph 0.14 LAB AMONO % [place]% 6.2 LAB AAMONO <0.87 k/uL Abs [place] 0.35 LAB AEOS % Eosin% 1.2 LAB AAEOS <0.46 k/uL Abs Eosin 0.07 LAB ABASO % Baso% 0.5 LAB AABASO <0.11 k/uL Abs Baso 0.03 LAB AUNRBC 0 /100 WBC NRBCs 0.0 LAB ABNRBC <0.01 k/uL Absolute nRBC <0.01 LAB DTYP DTYPE Auto Diff Performed By: #### CBCDIF, CMP, PT #### [facility] [address] [place] [id number] COMP METABOLIC PANEL Collected: 08/07/2017 Status: F Source: [place] 12:57 PM [facility] REPOSITORY TYPE CODE TESTS RESULT OUT OF REFERENCE UNITS RANGE LAB TP 6.3-8.0 g/dL Protein, Total 6.4 LAB ALB 3.9-4.9 g/dL Albumin 4.0 LAB CA 8.5-10.2 mg/dL Calcium, Total 9.1 LAB TBIL 0.2-1.3 mg/dL Bilirubin, Total 0.5 LAB ALKP 32-117 U/L Alkaline Phosphatase 63 LAB AST 13-35 U/L AST 17 LAB GLU 74-99 mg/dL Glucose 96 Result Comment: The [place] [employer] (ADA) provides guidance for cutoff values for fasting glucose and random glucose. The ADA defines fasting as no caloric intake for at least 8 hours. Fas ting plasma glucose results between 100 to 125 mg/dL indicate increased risk for diabetes (prediabetes). Fasting plasma glucose results greater than or equal to 126 mg/dL meet the criteria for diagnosis of diabetes. In the absence of unequivocal hyperglycemia, results should be confirmed by repeat testing. In a patient with classic symptoms of hyperglycemia or hyperglycemic crisis, random plasma glucose results greater than or equal to 200 mg/dL meet the criteria for diagnosis of diabetes. Reference: Standards of Medical Care in Diabetes 2016, [place] [employer] Association. Diabetes Care. 2016.39(Suppl 1). LAB BUN 7-21 mg/dL BUN 16 LAB CRET 0.58-0.96 mg/dL Creatinine High 1.11 LAB NA 136-144 mmol/L Sodium 138 LAB K 3.7-5.1 mmol/L Low Potassium 3.4 LAB CL 97-105 mmol/L Chloride 97 LAB CO2 22-30 mmol/L CO2 26 LAB AGAP 9-18 mmol/L Anion Gap 15 LAB ALT 7-38 U/L ALT 7 LAB GFRAA eGFR- Amer. >60 LAB GFRNAA . eGFR-All Other Races 59 Result Comment: eGFR (Estimated GFR) Units of measure: mL/min/1.73 meters squared eGFR is derived from the reexpressed MDRD Study equation using the following parameters: serum creatinine, age, gender and race. The creatinine assay has been calibrated to be traceable to IDMS. An eGFR <60 mL/min/1.73m2 for >3 months is consistent with chronic kidney disease. Refer to KDOQI guidelines for clinical interpretation. In patients with unstable renal function, e.g. those with acute kidney injury, the eGFR may not accurately reflect actual GFR. Performed By: #### CBCDIF, CMP, PT #### [facility] [address] [place], [place] [address] PROTIME Collected: 08/07/2017 Status: F Source: [place] 12:57 PM [facility] REPOSITORY TYPE CODE TESTS RESULT OUT OF RANGE REFERENCE UNITS LAB PSEC 9.7-13.0 sec High PT Sec 29.7 LAB INR 0.9-1.3 High PT INR 3.1 Result Comment: Vitamin K Antagonist (VKA) Therapeutic Range: INR 2 to 3 (Target INR of 2.5) Note: For patients treated with VKA drugs, such as warfarin, the [place] [employer] 2012 Guideline recommends a therapeutic INR range of 2 to 3 (target INR of 2.5). This recommendation includes high-risk patients with antiphospholipid syndrome with previous arterial or venous thromboembolism, current-generation mechanical or bioprosthetic aortic heart valve replacement. Note: Patients with mechanical aortic valve replacement and additional risk factors for thromboembolic events (atrial fibrillation, previous thromboembolism, LV dysfunction, hypercoagulable conditions) or an older generation mechanical AVR (i.e., ball in-Cage) or any mechanical MVR should have a INR therapeutic range of 2.5 to 3.5 (target INR of 3). Michael GH, et al. Chest 2012, 141:7S-47S Diogenes RESENDIZ et al. JACC 2017, 70: 252-289 Performed By: #### CBCDIF, CMP, PT #### [facility] [address] [place] [id number] CNOVSP Observed: 08/07/2017 Status: COMPLETED Source: [place] 12:30 PM [facility] REPOSITORY Visit (SP) Office ([facility]) PALOMA MARTINEZ ([id number]) 1990 F PTR Date Time Provider Department 08/07/17 12:30 PM [facility] During your visit today, we recorded the following information about you: Temperature Pulse Respiration Blood pressure 98.7 degrees 96/minute 18/minute 157/80 Lisseth Claudio MD, MD 08/07/2017 3:50 PM Signed APHERESIS THERAPEUTIC PLASMAPHERESIS PATIENT NAME: Paloma Cannon : 1990 AGE:[age] year old Gender: female Treatment #: 82 Diagnosis: Antiphospholipid antibody syndrome Primary Service/Physician: Hematology: Dr. Bessy Andujar Treatment performed at Apheresis Unit ([place] [facility]). Patient arrived by chair and with family. Patient identifier(s): Patient name Paloma Cannon, Date of - 1990. Procedure start time: 1212 ROS: fever: none, chills: none, breathing breathing as usual, no cough, no chest pains, no swelling in hands, no ankle swelling, general energy same, urine output Good. PE: Patient alert and oriented. Catheter site dressing: Dressing changed; Dressing changed. Catheter site dry and no drainage; catheter tunnel non tender. Lungs: clear to auscultation, respirations normal, nasal cannula 2 liters/minute PRN, heart regular rhythm, peripheral edema none in hands or feet. Is the patient having any pain? No 0 on a scale of 0 to 10 Lab drawn at start: CBC, CMP, PT/INR and PTT Access: left, indwelling and red port Return: left, indwelling and blue port Medications given: See [facility] audit report. Volume treated: 7995 ml whole blood Volume removed: 3916 ml plasma Volume replaced: 1000 ml NSS , 1000 ml 5% Albumin and 1543 ml FFP Extra fluids: 0 NSS ml. via separate IV. ACD used 799 ml. 10% calcium gluconate 30 ml. Net fluid balance: positive and 13 ml Cathflo inserted into red port on catheter in RCW. Upon completion of treatment: Labs drawn None Flushed All with 10 ml NSS and 6 ml 4% Sodium Citrate. IV Access: All and port caps changes Vital signs: temp 36.9, pulse 91, BP 148/71, Resp 20/min Procedure end time: 1515 Patient tolerated well. Voiced no complaints. Patient discharged by chair and with family to home. Next treatment: 2 weeks Signed by: Angella Ortiz RN DR. FRED STONE, SR. HOSPITAL STAFF PHYSICIAN NOTE OF PERSONAL INVOLVEMENT IN CARE Ms. Cannon tolerated the treatment without complaint. No acute events. She denies any recent hemoptysis. Her next plasma exchange will be in 2 weeks. Will continue to coordinate with Dr. Andujar. I reviewed the patients labs, medications and allergies prior to proceeding with this therapeutic treatment and discussed the case and parameters with the apheresis nurse. I have reviewed this therapeutic progress note documented by the apheresis nurse. I personally participated in all pertinent aspects and fernandes components of the therapeutic treatment. I was present during the treatment. Signature: Lisseth Claudio MD August 07, 2017 3:49 PM Pager: [phone] Referring Provider: LISSETH CLAUDIO [[id number]] Allergies As of Date: 08/07/2017 Noted Allergy Reaction RHUBARB 10/24/2013 2 - Rash 4 - Hives HEPARIN 10/24/2013 14 - Other: See Comments Comments: Per patient history of HIT - was on angiomax however then took l fondaparinux for bridging to coumadin. IV CONTRAST (IODINE) 2016 14 - Other: See Comments Comments: shuts kidneys down per patient RITUXIMAB 11/09/2016 14 - Other: See Comments Comments: Elevated cardiac enzymes Date Reviewed: 08/07/2017 Reviewed by: Angella Sauer) JEFF Ortiz - Fully Assessed Reason for Visit: Plasmapheresis [1323] Primary Visit Diagnosis:APS (antiphospholipid syndrome) ([facility]) [D68.61] Order(s):PROTHROMBIN TIME/PT [SQPT] Order #: [id number]. #:[id number] CBC + DIFF [SQCBCDIF] Order #: [id number]. #:[id number] COMP METABOLIC PANEL [SQCMP] Order #: [id number]. #:[id number] [facility] NURSING COMMUNICATION [[id number]] Order #: [id number]: 1 TREATMENT PARAMETERS [[id number]] Order #: [id number]: 1 [facility] NURSING COMMUNICATION [[id number]] Order #: [id number]: 1 STANDING [] diphenhydrAMINE 50 mg injection (BENADRYL)Disp: Rfl: [] hydrocortisone sodium succinate (PF) 100 mg injection (Solu-CORTEF)Disp: Rfl: [] calcium gluconate 3 g in NaCl 0.9% 1,000 mLDisp: Rfl: [] albumin (5%) 50 g infusionDisp: Rfl: citrate dextrose solution (ACD-A) infusionDisp: Rfl: 0.9% NaCl 10-20 mLDisp: Rfl: sodium citrate 4% 3-6 mL catheter lockDisp: Rfl: [] alteplase (CATHFLO) injection 2 mgDisp: Rfl: Prescriptions as of 08/07/2017 Sig: CYCLOPHOSPHAMIDE 50 MG CAPSULE Take by mouth daily. 2 caps -* PREDNISONE 5 MG TABLET Take by mouth daily. 20 mg - * SULFAMETHOXAZOLE 800 MG-TRIME* Take 1 tablet by mouth every * CARVEDILOL 25 MG TABLET Take 1 tablet by mouth twice * HYDRALAZINE 100 MG TABLET Take 1 tablet by mouth every * AMLODIPINE 5 MG TABLET Take 1 tablet by mouth once d* TORSEMIDE 20 MG TABLET Take 2 tablets by mouth once * FENTANYL 25 MCG/HR TRANSDERMA* Apply 1 Patch as directed elaine* GABAPENTIN 300 MG CAPSULE Please take gabapentin 200 mg* Patient taking differently: 300 mg three times daily. FLUTICASONE 50 MCG/ACTUATION * Use 1 [place] in each nostril o* WARFARIN 5 MG TABLET take by mouth as directed in * Patient taking differently: Take 5 mg by mouth once daily* PANTOPRAZOLE 40 MG TABLET,DEL* Take 1 tablet by mouth DAILY * ISOSORBIDE MONONITRATE ER 30 * Take 2 tablets by mouth once * MISCELLANEOUS MEDICAL SUPPLY * 1 package 30 - 40 mmHg pressu* CETIRIZINE 10 MG TABLET Take 1 tablet by mouth once d* Patient taking differently: Take 10 mg by mouth twice lis* SENNOSIDES 8.6 MG TABLET Take 1 tablet by mouth twice * More... More... Problem List As Of Date 08/07/2017 Noted Resolved Catastrophic Antiphospholipid antibody syndrome*INVALID FOR*01/24/2017 Priority: C More... 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 Severe Gastritis [K29.70] INVALID FOR*01/11/2017 Priority: F More... More... More... More... More... Anasarca [R60.1] INVALID FOR*01/24/2017 Priority: E More... More... More... More... More... More... 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 More... More... More... More... More... More... More... More... Hx pulmonary embolism [Z86.711] INVALID FOR*01/11/2017 Priority: C More... H/O deep vein thrombophlebitis of lower extremi*INVALID FOR*03/12/2015 Priority: C More... More... More... More... More... More... Hemoptysis [R04.2] INVALID FOR*12/27/2016 More... Elevated troponin [R74.8] INVALID FOR*01/11/2017 Anemia [D64.9] INVALID FOR* Priority: C More... Thrombocytopenia (HCC) [D69.6] INVALID FOR*01/11/2017 More... SUMMARY INVALID FOR*01/24/2017 Priority: A More... SIRS (systemic inflammatory response syndrome) *INVALID FOR*04/15/2015 Priority: D More... DVT (deep venous thrombosis) (HCC) [I82.409] INVALID FOR*01/11/2017 Priority: D More... Iron deficiency anemia [D50.9] INVALID FOR*01/11/2017 Priority: F More... Productive cough, hemoptysis [R04.2] INVALID FOR*01/04/2017 Priority: B Community acquired pneumonia [J18.9] INVALID FOR*01/11/2017 Respiratory failure with hypoxia (HCC) [J96.91] INVALID FOR*01/11/2017 Priority: B More... SOB (shortness of breath) [R06.02] INVALID FOR*12/28/2016 HTN (hypertension) [I10] INVALID FOR* Priority: E More... CAPRICE (acute kidney injury) (HCC) [N17.9] INVALID FOR* Priority: B More... 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 Hx of gastritis [Z87.19] INVALID FOR*01/11/2017 More... Nausea and vomiting [R11.2] INVALID FOR*04/28/2017 Priority: B More... 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 Anemia associated with acute blood loss [D62] INVALID FOR*01/11/2017 More... More... Acute on chronic respiratory failure with hypox*INVALID FOR* Priority: A More... Abdominal pain [R10.9] INVALID FOR* Priority: E More... Vomiting [R11.10] INVALID FOR*01/04/2017 Antiphospholipid syndrome (HCC) [D68.61] INVALID FOR*01/04/2017 Severe protein-calorie malnutrition (HCC) [E43] INVALID FOR*03/12/2017 Priority: B Hypoxia [R09.02] INVALID FOR*01/11/2017 Acute hypoxemic respiratory failure (HCC) [J96.*INVALID FOR*12/28/2016 More... Personal history of DVT (deep vein thrombosis) *INVALID FOR*01/11/2017 More... History of heparin-induced thrombocytopenia [Z8*INVALID FOR* Priority: C More... Hospital-acquired pneumonia [J18.9] INVALID FOR*12/28/2016 Priority: B More... Hypoxemia [R09.02] INVALID FOR*01/11/2017 (HFpEF) heart failure with preserved ejection f*INVALID FOR* Priority: C More... Headache [R51] INVALID FOR*01/18/2017 Priority: I More... More... Peripheral neuropathy (HCC) [G62.9] INVALID FOR* Priority: G Joint pain [M25.50] INVALID FOR*01/11/2017 More... Diffuse arthralgia [M25.50] INVALID FOR*01/11/2017 Priority: C More... CKD (chronic kidney disease) stage 3, GFR 30-59*INVALID FOR* Priority: C More... Obesity, Class III, BMI >= 40 (morbid obesity) *INVALID FOR* Priority: F Hypertensive emergency [I16.1] INVALID FOR*12/05/2016 More... Acute on chronic diastolic congestive heart ena*INVALID FOR*01/11/2017 More... APS (antiphospholipid syndrome) (HCC) [D68.61] INVALID FOR* Priority: C More... Elevated troponin level [R74.8] INVALID FOR*12/05/2016 More... Hypertensive urgency [I16.0] INVALID FOR*12/05/2016 PNA (pneumonia) [J18.9] INVALID FOR*12/27/2016 Acute respiratory failure with hypoxia (HCC) [J*INVALID FOR*12/27/2016 Clostridium difficile colitis [A04.72] INVALID FOR*12/28/2016 Hemoptysis [R04.2] INVALID FOR*01/20/2017 More... More... Supratherapeutic INR [R79.1] INVALID FOR*04/28/2017 Priority: B More... Cholelithiasis [K80.20] INVALID FOR*01/24/2017 Priority: B More... Ecchymosis of right eye [S05.11XA] INVALID FOR*01/18/2017 Priority: H More... Anticoagulation management encounter [Z51.81, Z*INVALID FOR* Priority: D Acute respiratory failure (HCC) [J96.00] INVALID FOR*02/10/2017 Priority: A More... Pulmonary HTN (HCC) [I27.20] INVALID FOR* Priority: F More... GERD (gastroesophageal reflux disease) [K21.9] INVALID FOR* Priority: E More... RUQ abdominal pain [R10.11] INVALID FOR* Priority: E More... Hemoptysis [R04.2] INVALID FOR*03/11/2017 More... Diarrhea [R19.7] INVALID FOR* Priority: E More... Bacteremia [R78.81] INVALID FOR* Priority: B More... 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 Edema [R60.9] INVALID FOR* Priority: A More... Flu-like symptoms [R68.89] INVALID FOR*06/10/2017 Hypercoagulable state (HCC) [D68.59] INVALID FOR* Priority: B More... Healthcare maintenance [Z00.00] INVALID FOR* More... Iron deficiency anemia secondary to inadequate *INVALID FOR* Priority: D More... Encounter Status:Closed by LISSETH CLAUDIO MD on 08/07/17 ENEDELIAOVS Observed: 08/07/2017 Status: COMPLETED Source: [place] 12:30 PM [facility] REPOSITORY Visit (SP) Office ([facility]) PALOMA MARTINEZ ([id number]) 1990 F [facility] Date Time Provider Department 08/07/17 12:30 PM KEM ANDUJAR [facility] During your visit today, we recorded the following information about you: Kem Andujar MD 08/10/2017 2:05 PM Signed Established Patient Paloma Cannon August 07, 2017 ? HPI Paloma Cannon was seen today in apheresis for her catastrophic antiphospholipid syndrome. She continues to receive plasma exchange, which is now being performed?every 2?weeks to attempt to lower?her antiphospholipid antibody level. When last checked on 05/30 her APL levels were still quite high. However, she has felt generally well. She was seen yesterday by Dr Alicea who recommended a course of oral cyclophosphamide for her pulmonary hemorrhage. She has been tolerating this reasonably well with only occasional nausea. She has had some hair loss and is wearing away. It has now been almost 2 months since her last hospitalization which is encouraging. She denies any significant hemoptysis in the meantime. Her antiphospholipid antibodies were checked 1 month ago and were still high but she is due for repeat studies this month. Current Outpatient Prescriptions on File Prior to Visit: cyclophosphamide (CYTOXAN) 50 mg capsule Take by mouth daily. 2 caps - 7 days; 3 caps- 7 days; 4 caps daily thereafter predniSONE (DELTASONE) 5 mg tablet Take by mouth daily. 20 mg - Jun; 15 mg - Jul; 10 mg - Aug; 5 mg - Sep onwards sulfamethoxazole-trimethoprim (BACTRIM DS) 800-160 mg per tablet Take 1 tablet by mouth every Monday,Monday,Monday. carvedilol (COREG) 25 mg tablet Take 1 tablet by mouth twice daily with meals. HOLD FOR SBP ANDlt;110 AND HR ANDlt;60 hydrALAZINE (APRESOLINE) 100 mg tablet Take 1 tablet by mouth every 8 hours. HOLD FOR SBP ANDlt;110 amLODIPine (NORVASC) 5 mg tablet Take 1 tablet by mouth once daily. HOLD FOR SBP ANDlt;120 torsemide (DEMADEX) 20 mg tablet Take 2 tablets by mouth once daily. fentaNYL (DURAGESIC) 25 mcg/hr Apply 1 Patch as directed every 72 hours. gabapentin (NEURONTIN) 300 mg capsule Please take gabapentin 200 mg three times daily for 3 days.If you tolerate it, increase to 300 mg three times a day for 3 days.If you tolerate it, increase to 600 mg at bedtime and 300 mg daytime for 3 days.If you tolerate it, increase to 600 mg three times a day for 3 days.If you tolerate it, increase to 900 mg at bedtime and 600 mg daytime for 3 days.If you tolerate it, increase to 900 mg three times a day for 3 days. (Patient taking differently: 300 mg three times daily.) fluticasone (FLONASE) 50 mcg/actuation nasal spray Use 1 [place] in each nostril once daily. warfarin (COUMADIN) 5 mg tablet take by mouth as directed in the evening to keep INR between 2.0-3.0 (Patient taking differently: Take 5 mg by mouth once daily. take by mouth as directed in the evening to keep INR between 2.0-3.0 Apheresis weeks takes 7.5 mg x3 days and holds 2-3 days prior to apheresis.) pantoprazole DR (PROTONIX) 40 mg tablet Take 1 tablet by mouth DAILY (6 AM). isosorbide mononitrate ER (IMDUR) 30 mg 24 hr tablet Take 2 tablets by mouth once daily. Please hold if your blood pressure is less than 120/80. [employer] [facility] [place] 1 package 30 - 40 mmHg pressure panty hose compression stockings. cetirizine 10 mg tablet Take 1 tablet by mouth once daily. (Patient taking differently: Take 10 mg by mouth twice daily. being taper up on the dosage of medication per order. ) senna 8.6 mg tab Take 1 tablet by mouth twice daily as needed. PHYSICAL EXAMINATION: General appearance: Well appearing, alert, in no acute distress, well-hydrated, well nourished., Obese Skin: Skin color, texture, turgor normal, no suspicious rashes or lesions Head: Normocephalic, no masses, lesions, tenderness or abnormalities Eyes: Anicteric sclera. Pupils are equally round and reactive to light. Extraocular movements are intact. Ears: External ears normal, canals clear, Not examined Nose/Sinuses: Not examined Oropharynx: Lips, mucosa, and tongue normal, teeth and gums normal, oropharynx normal Neck: Supple, no adenopathy; thyroid symmetric, normal size, no bruits Back: Normal exam, not examined Lungs: Lungs clear to auscultation. No wheezing, rhonchi, rales Heart: RRR without murmur, gallop, or rubs. No ectopy Abdomen: Deferred Extremities: No deformities, edema, skin discoloration, clubbing or cyanosis. Good capillary refill. Musculoskeletal: No joint swelling, deformity, or tenderness Peripheral pulses: Not examined Neuro: Negative., Gait normal. Reflexes normal and symmetric. Sensation grossly intact. WBC (k/uL) Date Value 08/07/2017 5.65 RBC (m/uL) Date Value 08/07/2017 3.80 (L) Hemoglobin (g/dL) Date Value 08/07/2017 9.4 (L) Hematocrit (%) Date Value 08/07/2017 30.6 (L) MCV (fL) Date Value 08/07/2017 80.5 MCH (pG) Date Value 08/07/2017 24.7 (L) MCHC (g/dL) Date Value 08/07/2017 30.7 RDW-CV (%) Date Value 08/07/2017 19.0 (H) Platelet Count (k/uL) Date Value 08/07/2017 143 (L) MPV (fL) Date Value 08/07/2017 11.5 Impression Overall, Paloma is doing reasonably well and is encouraging that she has avoided any hospitalization over the last 2 months. I will await the results of her antiphospholipid antibody testing this month. We will continue the cyclophosphamide and plasma exchange for the time being. I will see her again in pheresis in 2-3 weeks. Kem Andujar MD August 10, 2017 2:05 PM Referring Provider: KEM ANDUJAR [[id number]] Allergies As of Date: 08/07/2017 Noted Allergy Reaction RHUBARB 10/24/2013 2 - Rash 4 - Hives HEPARIN 10/24/2013 14 - Other: See Comments Comments: Per patient history of HIT - was on angiomax however then took l fondaparinux for bridging to coumadin. IV CONTRAST (IODINE) 2016 14 - Other: See Comments Comments: shuts kidneys down per patient RITUXIMAB 11/09/2016 14 - Other: See Comments Comments: Elevated cardiac enzymes Date Reviewed: 08/07/2017 Reviewed by: Angella Sauer) JEFF Ortiz - Fully Assessed Primary Visit Diagnosis:APS (antiphospholipid syndrome) (HCC) [D68.61] Other Visit Diagnosis:Hypercoagulable state (HCC) [D68.59] Prescriptions as of 08/07/2017 Sig: CYCLOPHOSPHAMIDE 50 MG CAPSULE Take by mouth daily. 2 caps -* PREDNISONE 5 MG TABLET Take by mouth daily. 20 mg - * SULFAMETHOXAZOLE 800 MG-TRIME* Take 1 tablet by mouth every * CARVEDILOL 25 MG TABLET Take 1 tablet by mouth twice * HYDRALAZINE 100 MG TABLET Take 1 tablet by mouth every * AMLODIPINE 5 MG TABLET Take 1 tablet by mouth once d* TORSEMIDE 20 MG TABLET Take 2 tablets by mouth once * FENTANYL 25 MCG/HR TRANSDERMA* Apply 1 Patch as directed elaine* GABAPENTIN 300 MG CAPSULE Please take gabapentin 200 mg* Patient taking differently: 300 mg three times daily. FLUTICASONE 50 MCG/ACTUATION * Use 1 [place] in each nostril o* WARFARIN 5 MG TABLET take by mouth as directed in * Patient taking differently: Take 5 mg by mouth once daily* PANTOPRAZOLE 40 MG TABLET,DEL* Take 1 tablet by mouth DAILY * ISOSORBIDE MONONITRATE ER 30 * Take 2 tablets by mouth once * MISCELLANEOUS MEDICAL SUPPLY * 1 package 30 - 40 mmHg pressu* CETIRIZINE 10 MG TABLET Take 1 tablet by mouth once d* Patient taking differently: Take 10 mg by mouth twice lis* SENNOSIDES 8.6 MG TABLET Take 1 tablet by mouth twice * More... More... Problem List As Of Date 08/07/2017 Noted Resolved Catastrophic Antiphospholipid antibody syndrome*INVALID FOR*01/24/2017 Priority: C More... 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 Severe Gastritis [K29.70] INVALID FOR*01/11/2017 Priority: F More... More... More... More... More... Anasarca [R60.1] INVALID FOR*01/24/2017 Priority: E More... More... More... More... More... More... 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 More... More... More... More... More... More... More... More... Hx pulmonary embolism [Z86.711] INVALID FOR*01/11/2017 Priority: C More... H/O deep vein thrombophlebitis of lower extremi*INVALID FOR*03/12/2015 Priority: C More... More... More... More... More... More... Hemoptysis [R04.2] INVALID FOR*12/27/2016 More... Elevated troponin [R74.8] INVALID FOR*01/11/2017 Anemia [D64.9] INVALID FOR* Priority: C More... Thrombocytopenia (HCC) [D69.6] INVALID FOR*01/11/2017 More... SUMMARY INVALID FOR*01/24/2017 Priority: A More... SIRS (systemic inflammatory response syndrome) *INVALID FOR*04/15/2015 Priority: D More... DVT (deep venous thrombosis) (HCC) [I82.409] INVALID FOR*01/11/2017 Priority: D More... Iron deficiency anemia [D50.9] INVALID FOR*01/11/2017 Priority: F More... Productive cough, hemoptysis [R04.2] INVALID FOR*01/04/2017 Priority: B Community acquired pneumonia [J18.9] INVALID FOR*01/11/2017 Respiratory failure with hypoxia (HCC) [J96.91] INVALID FOR*01/11/2017 Priority: B More... SOB (shortness of breath) [R06.02] INVALID FOR*12/28/2016 HTN (hypertension) [I10] INVALID FOR* Priority: E More... CAPRICE (acute kidney injury) (HCC) [N17.9] INVALID FOR* Priority: B More... 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 Hx of gastritis [Z87.19] INVALID FOR*01/11/2017 More... Nausea and vomiting [R11.2] INVALID FOR*04/28/2017 Priority: B More... 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 Anemia associated with acute blood loss [D62] INVALID FOR*01/11/2017 More... More... Acute on chronic respiratory failure with hypox*INVALID FOR* Priority: A More... Abdominal pain [R10.9] INVALID FOR* Priority: E More... Vomiting [R11.10] INVALID FOR*01/04/2017 Antiphospholipid syndrome (HCC) [D68.61] INVALID FOR*01/04/2017 Severe protein-calorie malnutrition (HCC) [E43] INVALID FOR*03/12/2017 Priority: B Hypoxia [R09.02] INVALID FOR*01/11/2017 Acute hypoxemic respiratory failure (HCC) [J96.*INVALID FOR*12/28/2016 More... Personal history of DVT (deep vein thrombosis) *INVALID FOR*01/11/2017 More... History of heparin-induced thrombocytopenia [Z8*INVALID FOR* Priority: C More... Hospital-acquired pneumonia [J18.9] INVALID FOR*12/28/2016 Priority: B More... Hypoxemia [R09.02] INVALID FOR*01/11/2017 (HFpEF) heart failure with preserved ejection f*INVALID FOR* Priority: C More... Headache [R51] INVALID FOR*01/18/2017 Priority: I More... More... Peripheral neuropathy (HCC) [G62.9] INVALID FOR* Priority: G Joint pain [M25.50] INVALID FOR*01/11/2017 More... Diffuse arthralgia [M25.50] INVALID FOR*01/11/2017 Priority: C More... CKD (chronic kidney disease) stage 3, GFR 30-59*INVALID FOR* Priority: C More... Obesity, Class III, BMI >= 40 (morbid obesity) *INVALID FOR* Priority: F Hypertensive emergency [I16.1] INVALID FOR*12/05/2016 More... Acute on chronic diastolic congestive heart ena*INVALID FOR*01/11/2017 More... APS (antiphospholipid syndrome) (HCC) [D68.61] INVALID FOR* Priority: C More... Elevated troponin level [R74.8] INVALID FOR*12/05/2016 More... Hypertensive urgency [I16.0] INVALID FOR*12/05/2016 PNA (pneumonia) [J18.9] INVALID FOR*12/27/2016 Acute respiratory failure with hypoxia (HCC) [J*INVALID FOR*12/27/2016 Clostridium difficile colitis [A04.72] INVALID FOR*12/28/2016 Hemoptysis [R04.2] INVALID FOR*01/20/2017 More... More... Supratherapeutic INR [R79.1] INVALID FOR*04/28/2017 Priority: B More... Cholelithiasis [K80.20] INVALID FOR*01/24/2017 Priority: B More... Ecchymosis of right eye [S05.11XA] INVALID FOR*01/18/2017 Priority: H More... Anticoagulation management encounter [Z51.81, Z*INVALID FOR* Priority: D Acute respiratory failure (HCC) [J96.00] INVALID FOR*02/10/2017 Priority: A More... Pulmonary HTN (HCC) [I27.20] INVALID FOR* Priority: F More... GERD (gastroesophageal reflux disease) [K21.9] INVALID FOR* Priority: E More... RUQ abdominal pain [R10.11] INVALID FOR* Priority: E More... Hemoptysis [R04.2] INVALID FOR*03/11/2017 More... Diarrhea [R19.7] INVALID FOR* Priority: E More... Bacteremia [R78.81] INVALID FOR* Priority: B More... 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 Edema [R60.9] INVALID FOR* Priority: A More... Flu-like symptoms [R68.89] INVALID FOR*06/10/2017 Hypercoagulable state (HCC) [D68.59] INVALID FOR* Priority: B More... Healthcare maintenance [Z00.00] INVALID FOR* More... Iron deficiency anemia secondary to inadequate *INVALID FOR* Priority: D More... Encounter Status:Closed by KEM ANDUJAR MD on 08/10/17 HOSP Observed: 08/07/2017 Status: COMPLETED Source: [place] 12:00 AM [facility] REPOSITORY Patient Update ([facility]) PALOMA MARTINEZ ([id number]) 1990 F PTR Date Time Provider Department 08/07/17 ELSA MELLO (COORD) [facility] During your visit today, we recorded the following information about you: Elsa Mello, Coord 08/10/2017 3:40 PM Signed Patient had appointments today at [facility]. I provided a parking pass. Adriana Mello Patient [employer]iller [facility] [phone] / [phone] Allergies As of Date: 08/07/2017 Noted Allergy Reaction RHUBARB 10/24/2013 2 - Rash 4 - Hives HEPARIN 10/24/2013 14 - Other: See Comments Comments: Per patient history of HIT - was on angiomax however then took l fondaparinux for bridging to coumadin. IV CONTRAST (IODINE) 2016 14 - Other: See Comments Comments: shuts kidneys down per patient RITUXIMAB 11/09/2016 14 - Other: See Comments Comments: Elevated cardiac enzymes Date Reviewed: 08/07/2017 Reviewed by: Angella (Rn) JEFF Ortiz - Fully Assessed Reason for Visit: Cancer Patient Support [4087] Prescriptions as of 08/07/2017 Sig: CYCLOPHOSPHAMIDE 50 MG CAPSULE Take by mouth daily. 2 caps -* PREDNISONE 5 MG TABLET Take by mouth daily. 20 mg - * SULFAMETHOXAZOLE 800 MG-TRIME* Take 1 tablet by mouth every * CARVEDILOL 25 MG TABLET Take 1 tablet by mouth twice * HYDRALAZINE 100 MG TABLET Take 1 tablet by mouth every * AMLODIPINE 5 MG TABLET Take 1 tablet by mouth once d* TORSEMIDE 20 MG TABLET Take 2 tablets by mouth once * FENTANYL 25 MCG/HR TRANSDERMA* Apply 1 Patch as directed elaine* GABAPENTIN 300 MG CAPSULE Please take gabapentin 200 mg* Patient taking differently: 300 mg three times daily. FLUTICASONE 50 MCG/ACTUATION * Use 1 [place] in each nostril o* WARFARIN 5 MG TABLET take by mouth as directed in * Patient taking differently: Take 5 mg by mouth once daily* PANTOPRAZOLE 40 MG TABLET,DEL* Take 1 tablet by mouth DAILY * ISOSORBIDE MONONITRATE ER 30 * Take 2 tablets by mouth once * MISCELLANEOUS MEDICAL SUPPLY * 1 package 30 - 40 mmHg pressu* CETIRIZINE 10 MG TABLET Take 1 tablet by mouth once d* Patient taking differently: Take 10 mg by mouth twice lis* SENNOSIDES 8.6 MG TABLET Take 1 tablet by mouth twice * More... More... Problem List As Of Date 08/07/2017 Noted Resolved Catastrophic Antiphospholipid antibody syndrome*INVALID FOR*01/24/2017 Priority: C More... 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 Severe Gastritis [K29.70] INVALID FOR*01/11/2017 Priority: F More... More... More... More... More... Anasarca [R60.1] INVALID FOR*01/24/2017 Priority: E More... More... More... More... More... More... 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 More... More... More... More... More... More... More... More... Hx pulmonary embolism [Z86.711] INVALID FOR*01/11/2017 Priority: C More... H/O deep vein thrombophlebitis of lower extremi*INVALID FOR*03/12/2015 Priority: C More... More... More... More... More... More... Hemoptysis [R04.2] INVALID FOR*12/27/2016 More... Elevated troponin [R74.8] INVALID FOR*01/11/2017 Anemia [D64.9] INVALID FOR* Priority: C More... Thrombocytopenia (HCC) [D69.6] INVALID FOR*01/11/2017 More... SUMMARY INVALID FOR*01/24/2017 Priority: A More... SIRS (systemic inflammatory response syndrome) *INVALID FOR*04/15/2015 Priority: D More... DVT (deep venous thrombosis) (HCC) [I82.409] INVALID FOR*01/11/2017 Priority: D More... Iron deficiency anemia [D50.9] INVALID FOR*01/11/2017 Priority: F More... Productive cough, hemoptysis [R04.2] INVALID FOR*01/04/2017 Priority: B Community acquired pneumonia [J18.9] INVALID FOR*01/11/2017 Respiratory failure with hypoxia (HCC) [J96.91] INVALID FOR*01/11/2017 Priority: B More... SOB (shortness of breath) [R06.02] INVALID FOR*12/28/2016 HTN (hypertension) [I10] INVALID FOR* Priority: E More... CAPRICE (acute kidney injury) (HCC) [N17.9] INVALID FOR* Priority: B More... 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 Hx of gastritis [Z87.19] INVALID FOR*01/11/2017 More... Nausea and vomiting [R11.2] INVALID FOR*04/28/2017 Priority: B More... 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 Anemia associated with acute blood loss [D62] INVALID FOR*01/11/2017 More... More... Acute on chronic respiratory failure with hypox*INVALID FOR* Priority: A More... Abdominal pain [R10.9] INVALID FOR* Priority: E More... Vomiting [R11.10] INVALID FOR*01/04/2017 Antiphospholipid syndrome (HCC) [D68.61] INVALID FOR*01/04/2017 Severe protein-calorie malnutrition (HCC) [E43] INVALID FOR*03/12/2017 Priority: B Hypoxia [R09.02] INVALID FOR*01/11/2017 Acute hypoxemic respiratory failure (HCC) [J96.*INVALID FOR*12/28/2016 More... Personal history of DVT (deep vein thrombosis) *INVALID FOR*01/11/2017 More... History of heparin-induced thrombocytopenia [Z8*INVALID FOR* Priority: C More... Hospital-acquired pneumonia [J18.9] INVALID FOR*12/28/2016 Priority: B More... Hypoxemia [R09.02] INVALID FOR*01/11/2017 (HFpEF) heart failure with preserved ejection f*INVALID FOR* Priority: C More... Headache [R51] INVALID FOR*01/18/2017 Priority: I More... More... Peripheral neuropathy (HCC) [G62.9] INVALID FOR* Priority: G Joint pain [M25.50] INVALID FOR*01/11/2017 More... Diffuse arthralgia [M25.50] INVALID FOR*01/11/2017 Priority: C More... CKD (chronic kidney disease) stage 3, GFR 30-59*INVALID FOR* Priority: C More... Obesity, Class III, BMI >= 40 (morbid obesity) *INVALID FOR* Priority: F Hypertensive emergency [I16.1] INVALID FOR*12/05/2016 More... Acute on chronic diastolic congestive heart ena*INVALID FOR*01/11/2017 More... APS (antiphospholipid syndrome) (HCC) [D68.61] INVALID FOR* Priority: C More... Elevated troponin level [R74.8] INVALID FOR*12/05/2016 More... Hypertensive urgency [I16.0] INVALID FOR*12/05/2016 PNA (pneumonia) [J18.9] INVALID FOR*12/27/2016 Acute respiratory failure with hypoxia (HCC) [J*INVALID FOR*12/27/2016 Clostridium difficile colitis [A04.72] INVALID FOR*12/28/2016 Hemoptysis [R04.2] INVALID FOR*01/20/2017 More... More... Supratherapeutic INR [R79.1] INVALID FOR*04/28/2017 Priority: B More... Cholelithiasis [K80.20] INVALID FOR*01/24/2017 Priority: B More... Ecchymosis of right eye [S05.11XA] INVALID FOR*01/18/2017 Priority: H More... Anticoagulation management encounter [Z51.81, Z*INVALID FOR* Priority: D Acute respiratory failure (HCC) [J96.00] INVALID FOR*02/10/2017 Priority: A More... Pulmonary HTN (HCC) [I27.20] INVALID FOR* Priority: F More... GERD (gastroesophageal reflux disease) [K21.9] INVALID FOR* Priority: E More... RUQ abdominal pain [R10.11] INVALID FOR* Priority: E More... Hemoptysis [R04.2] INVALID FOR*03/11/2017 More... Diarrhea [R19.7] INVALID FOR* Priority: E More... Bacteremia [R78.81] INVALID FOR* Priority: B More... 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 Edema [R60.9] INVALID FOR* Priority: A More... Flu-like symptoms [R68.89] INVALID FOR*06/10/2017 Hypercoagulable state (HCC) [D68.59] INVALID FOR* Priority: B More... Healthcare maintenance [Z00.00] INVALID FOR* More... Iron deficiency anemia secondary to inadequate *INVALID FOR* Priority: D More... Encounter Status:Closed by ELSA MELLO on 08/10/17 PROTHROMBIN TIME W/INR Collected: 08/04/2017 Status: F Source: [place] 8:05 AM [facility] REPOSITORY Order Comment: MEDOUT/IVT PORT TYPE CODE TESTS RESULT OUT OF RANGE REFERENCE UNITS LAB L300.4150 11.7-14.9 SECONDS High PROTIME 32.3 LAB L300.4200 Normal INR 3.3 Performed By: #### L300.3900 #### [facility] [place], [address] PROTHROMBIN TIME W/INR Collected: 07/28/2017 Status: F Source: [place] 8:10 AM [facility] REPOSITORY Order Comment: Order Date: 07/28/17 Comments: FAX RESULTS TO ELLIOTT CORDON AT [phone] TYPE CODE TESTS RESULT OUT OF RANGE REFERENCE UNITS LAB L300.4150 11.7-14.9 SECONDS High PROTIME 22.1 LAB L300.4200 Normal INR 2.0 Performed By: #### L300.3900 #### [facility] [address] [place], [address] PROGRESS Observed: 07/24/2017 Status: COMPLETED Source: [place] 2:14 PM [facility] REPOSITORY HNO ID: [id number] Author: Elsa Kelley (Capri) Funmilayo Service: (none) Author Type: Toolmaker Helper Type: Progress Notes Filed: 08/04/2017 2:15 PM Note Text: Patient had appointments today at [facility]. I provided a parking pass. Adriana Mello Patient Cable Driller [facility] [phone] CBC AND DIFFERENTIAL Collected: 07/24/2017 Status: F Source: [place] 1:30 PM [facility] REPOSITORY TYPE CODE TESTS RESULT OUT OF REFERENCE UNITS RANGE LAB WBC 3.70-11.00 k/uL WBC 6.70 LAB RBC 3.90-5.20 m/uL Low RBC 3.65 LAB HGB 11.5-15.5 g/dL Low Hemoglobin 9.0 LAB HCT 36.0-46.0 % Low Hematocrit 29.1 LAB MCV 80.0-100.0 fL Low MCV 79.7 LAB MCH 26.0-34.0 pG Low MCH 24.7 LAB MCHC 30.5-36.0 g/dL MCHC 30.9 LAB RDWCV 11.5-15.0 % RDW-CV High 19.8 LAB PLTCT 150-400 k/uL Low Platelet Count 64 Result Comment: Result checked and verified No clot detected. LAB MPV 9.0-12.7 fL MPV <<DO NOT REPORT>> LAB ANEUT % Neut% 84.9 LAB AANEUT 1.45-7.50 k/uL Abs 5.69 Neut LAB ALYMP % 5.1 Lymph% LAB AALYMP 1.00-4.00 k/uL Abs 0.34 Low Lymph LAB AMONO % [place]% 4.6 LAB AAMONO <0.87 k/uL Abs 0.31 [place] LAB AEOS % 5.1 Eosin% LAB AAEOS <0.46 k/uL Abs 0.34 Eosin LAB ABASO % Baso% 0.3 LAB AABASO <0.11 k/uL Abs <0.03 Baso LAB AUNRBC 0 /100 WBC NRBCs 0.0 LAB ABNRBC <0.01 k/uL <0.01 Absolute nRBC LAB DTYP DTYPE Auto Diff Performed By: #### CBCDIF, CMP #### [facility] [address] [place], [place] [address] COMP METABOLIC PANEL Collected: 07/24/2017 Status: F Source: [place] 1:30 PM [facility] REPOSITORY TYPE CODE TESTS RESULT OUT OF REFERENCE UNITS RANGE LAB TP 6.3-8.0 g/dL Low Protein, Total 5.4 LAB ALB 3.9-4.9 g/dL Low Albumin 3.6 LAB CA 8.5-10.2 mg/dL Calcium, Total 9.0 LAB TBIL 0.2-1.3 mg/dL Bilirubin, Total 0.9 LAB ALKP 32-117 U/L Alkaline Phosphatase 53 LAB AST 13-35 U/L AST 16 LAB GLU 74-99 mg/dL Glucose High 114 Result Comment: The [place] [employer] (ADA) provides guidance for cutoff values for fasting glucose and random glucose. The ADA defines fasting as no caloric intake for at least 8 hours. Fas ting plasma glucose results between 100 to 125 mg/dL indicate increased risk for diabetes (prediabetes). Fasting plasma glucose results greater than or equal to 126 mg/dL meet the criteria for diagnosis of diabetes. In the absence of unequivocal hyperglycemia, results should be confirmed by repeat testing. In a patient with classic symptoms of hyperglycemia or hyperglycemic crisis, random plasma glucose results greater than or equal to 200 mg/dL meet the criteria for diagnosis of diabetes. Reference: Standards of Medical Care in Diabetes 2016, [place] [employer]. Diabetes Care. 2016.39(Suppl 1). LAB BUN 7-21 mg/dL BUN 15 LAB CRET 0.58-0.96 mg/dL Creatinine 0.86 LAB NA 136-144 mmol/L Sodium 138 LAB K 3.7-5.1 mmol/L Potassium 3.8 LAB CL 97-105 mmol/L Chloride 102 LAB CO2 22-30 mmol/L CO2 Low 21 LAB AGAP 9-18 mmol/L Anion Gap 15 LAB ALT 7-38 U/L ALT 10 LAB GFRAA eGFR- Amer. >60 LAB GFRNAA . eGFR-All Other Races >60 Result Comment: eGFR (Estimated GFR) Units of measure: mL/min/1.73 meters squared eGFR is derived from the reexpressed MDRD Study equation using the following parameters: serum creatinine, age, gender and race. The creatinine assay has been calibrated to be traceable to IDMS. An eGFR <60 mL/min/1.73m2 for >3 months is consistent with chronic kidney disease. Refer to KDOQI guidelines for clinical interpretation. In patients with unstable renal function, e.g. those with acute kidney injury, the eGFR may not accurately reflect actual GFR. Performed By: #### CBCDIF, CMP #### [facility] [address] [place], [place] [address] LUPUS ANTICOAG PANEL Collected: 07/24/2017 Status: F Source: [place] 1:30 PM [facility] [place] REPOSITORY TYPE CODE TESTS RESULT OUT OF RANGE REFERENCE UNITS LAB PSEC 9.7-13.0 sec High PT Sec 28.7 LAB INR 0.9-1.3 High PT INR 3.0 Result Comment: Vitamin K Antagonist (VKA) Therapeutic Range: INR 2 to 3 (Target INR of 2.5) Note: For patients treated with VKA drugs, such as warfarin, the [place] [employer] 2012 Guideline recommends a therapeutic INR range of 2 to 3 (target INR of 2.5). This recommendation includes high-risk patients with antiphospholipid syndrome with previous arterial or venous thromboembolism, current-generation mechanical or bioprosthetic aortic heart valve replacement. Note: Patients with mechanical aortic valve replacement and additional risk factors for thromboembolic events (atrial fibrillation, previous thromboembolism, LV dysfunction, hypercoagulable conditions) or an older generation mechanical AVR (i.e., ball in-Cage) or any mechanical MVR should have a INR therapeutic range of 2.5 to 3.5 (target INR of 3). Michael GH, et al. Chest 2012, 141:7S-47S Diogenes RESENDZI et al. [facility] 2017, 70: 252-289 LAB APTT 23.0-32.4 sec High APTT 41.4 Result Comment: Unfractionated Heparin Therapeutic Ranges: Standard Heparin Nomogram: 53 to 78 seconds (anti-Xa level of 0.3 to 0.7 U/ml) Low Dose/ACS Nomogram: 49 to 67 seconds (anti-Xa level of 0.2 to 0.5 U/ml) Stroke Treatment Nomogram: 49 to 67 seconds (anti-Xa level of 0.2 to 0.5 U/ml) Note: The APTT therapeutic range has been determined for the current lot of laboratory APTT reagent in use throughout the [facility]. LAB PLTNEU Negative Abnormal Alert Positive PNP Result Comment: Result rechecked. LAB DRVSCN 32.7-46.7 sec High DRVVT Screen 111.9 Result Comment: Result rechecked. LAB DRVRAT <1.21 High DRVVT Confirm Ratio 1.94 Result Comment: Result rechecked. LAB DRVMIX 32.7-46.7 sec High DRVVT 1:1 75.7 Mix Result Comment: Result rechecked. LAB HEXSCN 48.9-70.2 sec Hex Phase Screen High 91.6 LAB HEXMIX 45.1-64.1 sec Hex Phase Confirm High 72.2 LAB HEXDEL <9.0 delta sec Hex Phase Delta High 19.5 LAB APTTSC 24.4-33.4 sec APTT Screen High 56.4 LAB IMPTT <33.5 sec Immed. PTT 1:1 Mix High 39.9 LAB 1HRPTT <37.3 sec Incub. PTT 1:1 Mix High 47.0 LAB TT <18.6 sec Thrombin Time 14.7 LAB LUPINT Interpretation (NOTE) Result Comment: Performing Pathologist: Cassandra Raymond M.D., Ph.D. Abnormal - see comment below. SIGNIFICANT FINDINGS: 1. Warfarin effect 2. Lupus anticoagulant: POSITIVE 3. Anticardiolipin antibody: IgG and IgM POSITIVE 4. Beta-2 Glycoprotein I antibody: IgG POSITIVE Laboratory testing was performed to evaluate the presence of a lupus anticoagulant and anti-phospholipid antibodies. Both the PT/INR and APTT values were prolonged. An anti Xa assay was negative; unfractionated heparin and direct Xa inhibitor effect was not detected. A normal thrombin time (TT) makes a heparin and/or direct thrombin inhibitor effect unlikely. The PT/INR is most likely elevated due to the patient's history of warfarin therapy. An elevated APTT may be seen during warfarin therapy, especially when the INR is greater than 1.5. LUPUS ANTICOAGULANT STUDIES: This specimen meets all four ISTH criteria, including a positive screening test, a positive mixing study, demonstration of phospholipid dependence and exclusion of other coagulopathies or inhibitors. The laboratory findings are diagnostic of a lupus anticoagulant. The criteria for the diagnosis of a Lupus Anticoagulant, as detailed by the Subcommittee on Lupus Anticoagulants and Anti-Phospholipid Antibodies of the Scientific and Standardization Committee of the International Society on Thrombosis and Haemostasis (ISTH), are the following: (1) A prolonged phospholipid-dependent clotting test (screening test); (2) Evidence for an inhibitor (1:1 mix of patient:normal plasma); (3) Evidence that the inhibitor is phospholipid dependent and (4) Exclusion of specific inhibitors (ie, fVIII inhibitors, direct thrombin inhibitors, or heparin). Thromb. Haemost. 74:1185 (1995). ANTIPHOSPHOLIPID ANTIBODY STUDIES: The IgG anticardiolipin antibody titer was positive. The presence of an IgG anticardiolipin antibody (a type of antiphospholipid antibody) has been shown to be a risk factor for both venous and arterial thrombosis. The IgM anticardiolipin antibody titer was positive. The presence of an IgM anticardiolipin antibody (a type of antiphospholipid antibody) may be a risk factor for both venous and arterial thrombosis. The IgA anticardiolipin antibody titer was negative. The IgG Beta-2 Glycoprotein I antibody titer was positive. The presence of an IgG Beta-2 Glycoprotein I antibody (a type of antiphospholipid antibody) has been shown to be a risk factor for both venous and arterial thrombosis. The IgM Beta-2 Glycoprotein I antibody titer was negative. Antiphospholipid antibody syndrome (APS) is present if at least one clinical criteria and one laboratory criteria are met. The clinical criteria for APS include the presence of vascular thrombosis or morbidity. The laboratory criteria for APS include positive testing for one of the following on two or more occasions, at least 12 weeks apart: (1) lupus anticoagulant ; (2) anticardiolipin IgG or IgM in medium or high titer (>40 GPL or >40 MPL) ; (3) anti- beta 2 glycoprotein I IgG or IgM antibody. J. Thromb Haemost 4:295 (2006). NOTE: This patient has had numerous lupus anticoagulant panels since 2014 and is followed for a diagnosis of catastrophic antiphospholipid Ab syndrome. Her current findings of a lupus anticoagulant, IgG and IgM anticardiolipin Ab and IgG B2GPI Ab are consistent with prior testing. The current sample volume was insufficient to perform Factor VIII; the prior factor VIII levels showed a dilutional effect without evidence for a factor VIII inhibitor. LAB CARDG 0-9 GPL IgG Cardiolipin High Ab. 115 Result Comment: <10 GPL Negative 10-40 GPL Equivocal >40 GPL Positive The following results were obtained with the [employer]ova QUANTA Lite JOESPH IgG III JESSICA. Cardiolipin IgG values obtained with the different manufacturers' assay methods may not be used interchangeably. The mag nitude of the reported IgG levels cannot be correlated to an endpoint titer. LAB CARDM 0-11 MPL IgM Cardiolipin High Ab. 15 Result Comment: <12 MPL Negative 12-40 MPL Equivocal >40 MPL Positive The following results were obtained with the [employer]ova QUANTA Lite JOESPH IgM III JESSICA. Cardiolipin IgM values obtained with different manufacturers' assay methods may not be used interchangeably. The magnitu de of the reported IgM levels cannot be correlated to an endpoint titer. LAB CARDA 0-11 APL IgA Cardiolipin Ab. <9 Result Comment: <12 APL Negative 12-40 APL Equivocal >40 APL Positive The following results were obtained with an Inova QUANTA Lite JOESPH IgA III JESSICA. Cardiolipin IgA values obtained with different manufacturers' assay methods may not be used interchangeably. The magnitud e of the reported IgA levels cannot be correlated to an endpoint titer. LAB B2GPG <20 SGU High Beta2 Glycoprot IgG >150 Result Comment: < 20 SGU Negative 20-80 SGU Low Positive > 80 SGU High Positive These results were obtained with the [employer]ova QUANTA Lite B2 GPI IgG JESSICA. B2 GPI IgG values obtained with different manufacturers' assay methods may not be used interchangeably. The magnitude of the repo rted IgG levels cannot be correlated to an endpoint titer. LAB B2GPM <20 SMU Beta2 Glycoprot IgM 12 Result Comment: < 20 SMU Negative 20-80 SMU Low Positive > 80 SMU High Positive These results were obtained with the [employer] QUANTA Lite B2 GPI IgM JESSICA. B2 GPI IgM values obtained with different manufacturers' assay methods may not be used interchangeably. The magnitude of the repo rted IgM levels cannot be correlated to an endpoint titer. Performed By: #### LUPUSP #### [facility] [address] [place], [place] [address] PROGRESS Observed: 07/24/2017 Status: COMPLETED Source: [place] 1:17 PM [facility] [place] REPOSITORY HNO ID: [id number] Author: Lisseth Claudio MD Service: (none) Author Type: Physician Type: Progress Notes Filed: 07/24/2017 4:59 PM Note Text: APHERESIS THERAPEUTIC PLASMAPHERESIS PATIENT NAME: Paloma Cannon : 1990 AGE:[age] year old Gender: female Treatment #: 81 Diagnosis: Antiphospholipid antibody syndrome Primary Service/Physician: Hematology: Dr. Bessy Andujar Treatment performed at [facility] ([facility]). Patient arrived by chair with . Patient identifier(s): Patient name Paloma Cannon, Date of - 1990. Procedure start time: 1210 ROS: fever: none, chills: none, breathing shortness of breath with exertion, no cough, no chest pains, no swelling in hands, no ankle swelling, general energy good, urine output Good. PE: Patient alert and oriented. Catheter site dressing: Intact, Clean and Dry; Dressing changed and site clean, dry, without pain. Catheter site dry and no drainage; catheter tunnel non tender. Lungs: clear to auscultation, respirations normal, nasal cannula 2 liters/minute, heart regular rhythm, peripheral edema 1+ in ankles and feet. Is the patient having any pain? No 0 on a scale of 0 to 10 Lab drawn at start: CBC+diff, CMP and Lupus Anticoag Pl Access: left, indwelling, SC, central line and red port Return: left, indwelling, SC, central line and blue port Medications given: See [facility] audit report. Volume treated: 7267 ml whole blood Volume removed: 4386 ml plasma Volume replaced: 1000 ml NSS, 1000 ml 5% Albumin and 1528 ml FFP Extra fluids: None ACD used 727 ml. 10% calcium gluconate 30 ml. Net fluid balance: +14 ml Upon completion of treatment: Labs drawn: None Flushed All with 10 ml NSS and 3 ml 4% Sodium Citrate. IV Access: All port caps changed Vital signs: temp 98.5F, pulse 110, BP 147/80, Resp 18/min Procedure end time: 1407 Patient tolerated well. Voiced no complaints. Patient discharged by chair to home. Next treatment: Monday08/07/17 Patient instructed to continue abundant oral fluids Signed by: Lou Juarez RN DR. FRED STONE, SR. HOSPITAL STAFF PHYSICIAN NOTE OF PERSONAL INVOLVEMENT IN CARE Ms. Aiken tolerated the treatment without complaint. No acute events. Lupus anticoagulant antibodies were drawn. Her next treatment will be in 2 weeks. I reviewed the patients labs, medications and allergies prior to proceeding with this therapeutic treatment and discussed the case and parameters with the apheresis nurse. I have reviewed this therapeutic progress note documented by the apheresis nurse. I personally participated in all pertinent aspects and fernandes components of the therapeutic treatment. I was present during the treatment. Signature: Lisseth Claudio MD July 24, 2017 4:58 PM Pager: [phone] CNOVSP Observed: 07/24/2017 Status: COMPLETED Source: [place] 12:30 PM [facility] REPOSITORY Visit (SP) Office ([facility]) RITIKAMELISSA ENRIQUEPALOMA Stewart ([id number]) 1990 F PTR Date Time Provider Department 07/24/17 12:30 PM [facility] During your visit today, we recorded the following information about you: Temperature Pulse Respiration Blood pressure 98.2 degrees 102/minute 20/minute 147/68 Lisseth Claudio MD, 07/24/2017 4:59 PM Signed APHERESIS THERAPEUTIC PLASMAPHERESIS PATIENT NAME: Paloma Cannon : 1990 AGE:[age] year old Gender: female Treatment #: 81 Diagnosis: Antiphospholipid antibody syndrome Primary Service/Physician: Hematology: Dr. Bessy Andujar Treatment performed at [facility] ([facility]). Patient arrived by chair with . Patient identifier(s): Patient name Paloma Cannon, Date of - 1990. Procedure start time: 1210 ROS: fever: none, chills: none, breathing shortness of breath with exertion, no cough, no chest pains, no swelling in hands, no ankle swelling, general energy good, urine output Good. PE: Patient alert and oriented. Catheter site dressing: Intact, Clean and Dry; Dressing changed and site clean, dry, without pain. Catheter site dry and no drainage; catheter tunnel non tender. Lungs: clear to auscultation, respirations normal, nasal cannula 2 liters/minute, heart regular rhythm, peripheral edema 1+ in ankles and feet. Is the patient having any pain? No 0 on a scale of 0 to 10 Lab drawn at start: CBC+diff, CMP and Lupus Anticoag Pl Access: left, indwelling, SC, central line and red port Return: left, indwelling, SC, central line and blue port Medications given: See [facility] audit report. Volume treated: 7267 ml whole blood Volume removed: 4386 ml plasma Volume replaced: 1000 ml NSS, 1000 ml 5% Albumin and 1528 ml FFP Extra fluids: None ACD used 727 ml. 10% calcium gluconate 30 ml. Net fluid balance: +14 ml Upon completion of treatment: Labs drawn: None Flushed All with 10 ml NSS and 3 ml 4% Sodium Citrate. IV Access: All port caps changed Vital signs: temp 98.5F, pulse 110, BP 147/80, Resp 18/min Procedure end time: 1407 Patient tolerated well. Voiced no complaints. Patient discharged by chair to home. Next treatment: Monday08/07/17 Patient instructed to continue abundant oral fluids Signed by: Lou Juarez RN [facility] STAFF PHYSICIAN NOTE OF PERSONAL INVOLVEMENT IN CARE Ms. Aiken tolerated the treatment without complaint. No acute events. Lupus anticoagulant antibodies were drawn. Her next treatment will be in 2 weeks. I reviewed the patients labs, medications and allergies prior to proceeding with this therapeutic treatment and discussed the case and parameters with the apheresis nurse. I have reviewed this therapeutic progress note documented by the apheresis nurse. I personally participated in all pertinent aspects and fernandes components of the therapeutic treatment. I was present during the treatment. Signature: Lisseth Claudio MD July 24, 2017 4:58 PM Pager: [phone] Referring Provider: LISSETH CLAUDIO [[id number]] Allergies As of Date: 07/24/2017 Noted Allergy Reaction RHUBARB 10/24/2013 2 - Rash 4 - Hives HEPARIN 10/24/2013 14 - Other: See Comments Comments: Per patient history of HIT - was on angiomax however then took l fondaparinux for bridging to coumadin. IV CONTRAST (IODINE) 2016 14 - Other: See Comments Comments: shuts kidneys down per patient RITUXIMAB 11/09/2016 14 - Other: See Comments Comments: Elevated cardiac enzymes Date Reviewed: 07/24/2017 Reviewed by: Lou (Rn) JEFF Juarez - Fully Assessed Reason for Visit: Plasmapheresis [1323] Primary Visit Diagnosis:APS (antiphospholipid syndrome) ([facility]) [D68.61] Order(s):LUPUS ANTICOAG PL [SQLUPUSP] Order #: [id number]. #:[id number] CBC + DIFF [SQCBCDIF] Order #: [id number]. #:[id number] COMP METABOLIC PANEL [SQCMP] Order #: [id number]. #:[id number] [facility] [[id number]] Order #: [id number]: 1 TREATMENT PARAMETERS [[id number]] Order #: [id number]: 1 [facility] NURSING COMMUNICATION [[id number]] Order #: [id number]: 1 STANDING [] diphenhydrAMINE 50 mg injection (BENADRYL)Disp: Rfl: [] hydrocortisone sodium succinate (PF) 100 mg injection (Solu-CORTEF)Disp: Rfl: [] calcium gluconate 3 g in NaCl 0.9% 1,000 mLDisp: Rfl: [] albumin (5%) 50 g infusionDisp: Rfl: citrate dextrose solution (ACD-A) infusionDisp: Rfl: 0.9% NaCl 10-20 mLDisp: Rfl: sodium citrate 4% 3-6 mL catheter lockDisp: Rfl: Prescriptions as of 07/24/2017 Sig: CYCLOPHOSPHAMIDE 50 MG CAPSULE Take by mouth daily. 2 caps -* PREDNISONE 5 MG TABLET Take by mouth daily. 20 mg - * SULFAMETHOXAZOLE 800 MG-TRIME* Take 1 tablet by mouth every * CARVEDILOL 25 MG TABLET Take 1 tablet by mouth twice * HYDRALAZINE 100 MG TABLET Take 1 tablet by mouth every * AMLODIPINE 5 MG TABLET Take 1 tablet by mouth once d* TORSEMIDE 20 MG TABLET Take 2 tablets by mouth once * FENTANYL 25 MCG/HR TRANSDERMA* Apply 1 Patch as directed elaine* GABAPENTIN 300 MG CAPSULE Please take gabapentin 200 mg* Patient taking differently: 300 mg three times daily. FLUTICASONE 50 MCG/ACTUATION * Use 1 [place] in each nostril o* WARFARIN 5 MG TABLET take by mouth as directed in * Patient taking differently: Take 5 mg by mouth once daily* PANTOPRAZOLE 40 MG TABLET,DEL* Take 1 tablet by mouth DAILY * ISOSORBIDE MONONITRATE ER 30 * Take 2 tablets by mouth once * MISCELLANEOUS MEDICAL SUPPLY * 1 package 30 - 40 mmHg pressu* CETIRIZINE 10 MG TABLET Take 1 tablet by mouth once d* Patient taking differently: Take 10 mg by mouth twice lis* SENNOSIDES 8.6 MG TABLET Take 1 tablet by mouth twice * More... More... Problem List As Of Date 07/24/2017 Noted Resolved Catastrophic Antiphospholipid antibody syndrome*INVALID FOR*01/24/2017 Priority: C More... 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 Severe Gastritis [K29.70] INVALID FOR*01/11/2017 Priority: F More... More... More... More... More... Anasarca [R60.1] INVALID FOR*01/24/2017 Priority: E More... More... More... More... More... More... 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 More... More... More... More... More... More... More... More... Hx pulmonary embolism [Z86.711] INVALID FOR*01/11/2017 Priority: C More... H/O deep vein thrombophlebitis of lower extremi*INVALID FOR*03/12/2015 Priority: C More... More... More... More... More... More... Hemoptysis [R04.2] INVALID FOR*12/27/2016 More... Elevated troponin [R74.8] INVALID FOR*01/11/2017 Anemia [D64.9] INVALID FOR* Priority: C More... Thrombocytopenia (HCC) [D69.6] INVALID FOR*01/11/2017 More... SUMMARY INVALID FOR*01/24/2017 Priority: A More... SIRS (systemic inflammatory response syndrome) *INVALID FOR*04/15/2015 Priority: D More... DVT (deep venous thrombosis) (HCC) [I82.409] INVALID FOR*01/11/2017 Priority: D More... Iron deficiency anemia [D50.9] INVALID FOR*01/11/2017 Priority: F More... Productive cough, hemoptysis [R04.2] INVALID FOR*01/04/2017 Priority: B Community acquired pneumonia [J18.9] INVALID FOR*01/11/2017 Respiratory failure with hypoxia (HCC) [J96.91] INVALID FOR*01/11/2017 Priority: B More... SOB (shortness of breath) [R06.02] INVALID FOR*12/28/2016 HTN (hypertension) [I10] INVALID FOR* Priority: E More... CAPRICE (acute kidney injury) (HCC) [N17.9] INVALID FOR* Priority: B More... 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 Hx of gastritis [Z87.19] INVALID FOR*01/11/2017 More... Nausea and vomiting [R11.2] INVALID FOR*04/28/2017 Priority: B More... 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 Anemia associated with acute blood loss [D62] INVALID FOR*01/11/2017 More... More... Acute on chronic respiratory failure with hypox*INVALID FOR* Priority: A More... Abdominal pain [R10.9] INVALID FOR* Priority: E More... Vomiting [R11.10] INVALID FOR*01/04/2017 Antiphospholipid syndrome (HCC) [D68.61] INVALID FOR*01/04/2017 Severe protein-calorie malnutrition (HCC) [E43] INVALID FOR*03/12/2017 Priority: B Hypoxia [R09.02] INVALID FOR*01/11/2017 Acute hypoxemic respiratory failure (HCC) [J96.*INVALID FOR*12/28/2016 More... Personal history of DVT (deep vein thrombosis) *INVALID FOR*01/11/2017 More... History of heparin-induced thrombocytopenia [Z8*INVALID FOR* Priority: C More... Hospital-acquired pneumonia [J18.9] INVALID FOR*12/28/2016 Priority: B More... Hypoxemia [R09.02] INVALID FOR*01/11/2017 (HFpEF) heart failure with preserved ejection f*INVALID FOR* Priority: C More... Headache [R51] INVALID FOR*01/18/2017 Priority: I More... More... Peripheral neuropathy (HCC) [G62.9] INVALID FOR* Priority: G Joint pain [M25.50] INVALID FOR*01/11/2017 More... Diffuse arthralgia [M25.50] INVALID FOR*01/11/2017 Priority: C More... CKD (chronic kidney disease) stage 3, GFR 30-59*INVALID FOR* Priority: C More... Obesity, Class III, BMI >= 40 (morbid obesity) *INVALID FOR* Priority: F Hypertensive emergency [I16.1] INVALID FOR*12/05/2016 More... Acute on chronic diastolic congestive heart ena*INVALID FOR*01/11/2017 More... APS (antiphospholipid syndrome) (HCC) [D68.61] INVALID FOR* Priority: C More... Elevated troponin level [R74.8] INVALID FOR*12/05/2016 More... Hypertensive urgency [I16.0] INVALID FOR*12/05/2016 PNA (pneumonia) [J18.9] INVALID FOR*12/27/2016 Acute respiratory failure with hypoxia (HCC) [J*INVALID FOR*12/27/2016 Clostridium difficile colitis [A04.72] INVALID FOR*12/28/2016 Hemoptysis [R04.2] INVALID FOR*01/20/2017 More... More... Supratherapeutic INR [R79.1] INVALID FOR*04/28/2017 Priority: B More... Cholelithiasis [K80.20] INVALID FOR*01/24/2017 Priority: B More... Ecchymosis of right eye [S05.11XA] INVALID FOR*01/18/2017 Priority: H More... Anticoagulation management encounter [Z51.81, Z*INVALID FOR* Priority: D Acute respiratory failure (HCC) [J96.00] INVALID FOR*02/10/2017 Priority: A More... Pulmonary HTN (HCC) [I27.20] INVALID FOR* Priority: F More... GERD (gastroesophageal reflux disease) [K21.9] INVALID FOR* Priority: E More... RUQ abdominal pain [R10.11] INVALID FOR* Priority: E More... Hemoptysis [R04.2] INVALID FOR*03/11/2017 More... Diarrhea [R19.7] INVALID FOR* Priority: E More... Bacteremia [R78.81] INVALID FOR* Priority: B More... 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 Edema [R60.9] INVALID FOR* Priority: A More... Flu-like symptoms [R68.89] INVALID FOR*06/10/2017 Hypercoagulable state (HCC) [D68.59] INVALID FOR* Priority: B More... Healthcare maintenance [Z00.00] INVALID FOR* More... Iron deficiency anemia secondary to inadequate *INVALID FOR* Priority: D More... Encounter Status:Closed by LISSETH CLAUDIO MD on 07/24/17 HOSP Observed: 07/24/2017 Status: COMPLETED Source: [place] 12:00 AM [facility] REPOSITORY Patient Update ([facility]) PALOMA MARTINEZ ([id number]) 1990 F PTR Date Time Provider Department 07/24/17 ELSA MELLO (COORD) [facility] During your visit today, we recorded the following information about you: Elsa Mello, [place] 08/04/2017 2:15 PM Signed Patient had appointments today at [facility]. I provided a parking pass. Adriana Mello Patient Cable Driller [facility] [phone] / [phone] Allergies As of Date: 07/24/2017 Noted Allergy Reaction RHUBARB 10/24/2013 2 - Rash 4 - Hives HEPARIN 10/24/2013 14 - Other: See Comments Comments: Per patient history of HIT - was on angiomax however then took l fondaparinux for bridging to coumadin. IV CONTRAST (IODINE) 2016 14 - Other: See Comments Comments: shuts kidneys down per patient RITUXIMAB 11/09/2016 14 - Other: See Comments Comments: Elevated cardiac enzymes Date Reviewed: 07/24/2017 Reviewed by: Lou (Rn) JEFF Juarez - Fully Assessed Reason for Visit: Cancer Patient Support [[id number]] Prescriptions as of 07/24/2017 Sig: CYCLOPHOSPHAMIDE 50 MG CAPSULE Take by mouth daily. 2 caps -* PREDNISONE 5 MG TABLET Take by mouth daily. 20 mg - * SULFAMETHOXAZOLE 800 MG-TRIME* Take 1 tablet by mouth every * CARVEDILOL 25 MG TABLET Take 1 tablet by mouth twice * HYDRALAZINE 100 MG TABLET Take 1 tablet by mouth every * AMLODIPINE 5 MG TABLET Take 1 tablet by mouth once d* TORSEMIDE 20 MG TABLET Take 2 tablets by mouth once * FENTANYL 25 MCG/HR TRANSDERMA* Apply 1 Patch as directed elaine* GABAPENTIN 300 MG CAPSULE Please take gabapentin 200 mg* Patient taking differently: 300 mg three times daily. FLUTICASONE 50 MCG/ACTUATION * Use 1 [place] in each nostril o* WARFARIN 5 MG TABLET take by mouth as directed in * Patient taking differently: Take 5 mg by mouth once daily* PANTOPRAZOLE 40 MG TABLET,DEL* Take 1 tablet by mouth DAILY * ISOSORBIDE MONONITRATE ER 30 * Take 2 tablets by mouth once * MISCELLANEOUS MEDICAL SUPPLY * 1 package 30 - 40 mmHg pressu* CETIRIZINE 10 MG TABLET Take 1 tablet by mouth once d* Patient taking differently: Take 10 mg by mouth twice lis* SENNOSIDES 8.6 MG TABLET Take 1 tablet by mouth twice * More... More... Problem List As Of Date 07/24/2017 Noted Resolved Catastrophic Antiphospholipid antibody syndrome*INVALID FOR*01/24/2017 Priority: C More... 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 Severe Gastritis [K29.70] INVALID FOR*01/11/2017 Priority: F More... More... More... More... More... Anasarca [R60.1] INVALID FOR*01/24/2017 Priority: E More... More... More... More... More... More... 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 More... More... More... More... More... More... More... More... Hx pulmonary embolism [Z86.711] INVALID FOR*01/11/2017 Priority: C More... H/O deep vein thrombophlebitis of lower extremi*INVALID FOR*03/12/2015 Priority: C More... More... More... More... More... More... Hemoptysis [R04.2] INVALID FOR*12/27/2016 More... Elevated troponin [R74.8] INVALID FOR*01/11/2017 Anemia [D64.9] INVALID FOR* Priority: C More... Thrombocytopenia (HCC) [D69.6] INVALID FOR*01/11/2017 More... SUMMARY INVALID FOR*01/24/2017 Priority: A More... SIRS (systemic inflammatory response syndrome) *INVALID FOR*04/15/2015 Priority: D More... DVT (deep venous thrombosis) (HCC) [I82.409] INVALID FOR*01/11/2017 Priority: D More... Iron deficiency anemia [D50.9] INVALID FOR*01/11/2017 Priority: F More... Productive cough, hemoptysis [R04.2] INVALID FOR*01/04/2017 Priority: B Community acquired pneumonia [J18.9] INVALID FOR*01/11/2017 Respiratory failure with hypoxia (HCC) [J96.91] INVALID FOR*01/11/2017 Priority: B More... SOB (shortness of breath) [R06.02] INVALID FOR*12/28/2016 HTN (hypertension) [I10] INVALID FOR* Priority: E More... CAPRICE (acute kidney injury) (HCC) [N17.9] INVALID FOR* Priority: B More... 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 Hx of gastritis [Z87.19] INVALID FOR*01/11/2017 More... Nausea and vomiting [R11.2] INVALID FOR*04/28/2017 Priority: B More... 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 Anemia associated with acute blood loss [D62] INVALID FOR*01/11/2017 More... More... Acute on chronic respiratory failure with hypox*INVALID FOR* Priority: A More... Abdominal pain [R10.9] INVALID FOR* Priority: E More... Vomiting [R11.10] INVALID FOR*01/04/2017 Antiphospholipid syndrome (HCC) [D68.61] INVALID FOR*01/04/2017 Severe protein-calorie malnutrition (HCC) [E43] INVALID FOR*03/12/2017 Priority: B Hypoxia [R09.02] INVALID FOR*01/11/2017 Acute hypoxemic respiratory failure (HCC) [J96.*INVALID FOR*12/28/2016 More... Personal history of DVT (deep vein thrombosis) *INVALID FOR*01/11/2017 More... History of heparin-induced thrombocytopenia [Z8*INVALID FOR* Priority: C More... Hospital-acquired pneumonia [J18.9] INVALID FOR*12/28/2016 Priority: B More... Hypoxemia [R09.02] INVALID FOR*01/11/2017 (HFpEF) heart failure with preserved ejection f*INVALID FOR* Priority: C More... Headache [R51] INVALID FOR*01/18/2017 Priority: I More... More... Peripheral neuropathy (HCC) [G62.9] INVALID FOR* Priority: G Joint pain [M25.50] INVALID FOR*01/11/2017 More... Diffuse arthralgia [M25.50] INVALID FOR*01/11/2017 Priority: C More... CKD (chronic kidney disease) stage 3, GFR 30-59*INVALID FOR* Priority: C More... Obesity, Class III, BMI >= 40 (morbid obesity) *INVALID FOR* Priority: F Hypertensive emergency [I16.1] INVALID FOR*12/05/2016 More... Acute on chronic diastolic congestive heart ena*INVALID FOR*01/11/2017 More... APS (antiphospholipid syndrome) (HCC) [D68.61] INVALID FOR* Priority: C More... Elevated troponin level [R74.8] INVALID FOR*12/05/2016 More... Hypertensive urgency [I16.0] INVALID FOR*12/05/2016 PNA (pneumonia) [J18.9] INVALID FOR*12/27/2016 Acute respiratory failure with hypoxia (HCC) [J*INVALID FOR*12/27/2016 Clostridium difficile colitis [A04.72] INVALID FOR*12/28/2016 Hemoptysis [R04.2] INVALID FOR*01/20/2017 More... More... Supratherapeutic INR [R79.1] INVALID FOR*04/28/2017 Priority: B More... Cholelithiasis [K80.20] INVALID FOR*01/24/2017 Priority: B More... Ecchymosis of right eye [S05.11XA] INVALID FOR*01/18/2017 Priority: H More... Anticoagulation management encounter [Z51.81, Z*INVALID FOR* Priority: D Acute respiratory failure (HCC) [J96.00] INVALID FOR*02/10/2017 Priority: A More... Pulmonary HTN (HCC) [I27.20] INVALID FOR* Priority: F More... GERD (gastroesophageal reflux disease) [K21.9] INVALID FOR* Priority: E More... RUQ abdominal pain [R10.11] INVALID FOR* Priority: E More... Hemoptysis [R04.2] INVALID FOR*03/11/2017 More... Diarrhea [R19.7] INVALID FOR* Priority: E More... Bacteremia [R78.81] INVALID FOR* Priority: B More... 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 Edema [R60.9] INVALID FOR* Priority: A More... Flu-like symptoms [R68.89] INVALID FOR*06/10/2017 Hypercoagulable state (HCC) [D68.59] INVALID FOR* Priority: B More... Healthcare maintenance [Z00.00] INVALID FOR* More... Iron deficiency anemia secondary to inadequate *INVALID FOR* Priority: D More... Encounter Status:Closed by ELSA MELLO on 08/04/17 PROTHROMBIN TIME W/INR Collected: 07/21/2017 Status: F Source: [place] 8:00 AM [facility] REPOSITORY Order Comment: MEDOUT/PORT TYPE CODE TESTS RESULT OUT OF RANGE REFERENCE UNITS LAB L300.4150 11.7-14.9 SECONDS High PROTIME 25.6 LAB L300.4200 Normal INR 2.5 Performed By: #### L300.3900 #### [facility] [address] [place], [address] PROTHROMBIN TIME W/INR Collected: 07/14/2017 Status: F Source: [place] 8:15 AM [facility] REPOSITORY Order Comment: MEDOUT/PORT TYPE CODE TESTS RESULT OUT OF RANGE REFERENCE UNITS LAB L300.4150 11.7-14.9 SECONDS High PROTIME 23.1 LAB L300.4200 Normal INR 2.1 Performed By: #### L300.3900 #### [facility] [address] [place], [address] URINALYSIS Collected: 07/11/2017 Status: F Source: [place] 4:10 PM [facility] REPOSITORY TYPE CODE TESTS RESULT OUT OF RANGE REFERENCE UNITS LAB UCOL Yellow Color Yellow LAB [facility] Clear Clarity Clear LAB UGLUC Negative mg/dL Glucose, Urine Negative LAB UBIL Negative Bilirubin, Urine Negative LAB UKET Negative Ketones, Urine Negative LAB USPG 1.005-1.030 Specific [place], Ur 1.026 LAB UHGB Negative Hemoglobin/Blood, Negative Ur LAB UPH 4.5-8.0 pH 5.0 LAB UPROT Negative mg/dL Protein, Abnormal Urine 100 Alert LAB UUROB Normal Urobilinogen Normal LAB UNITR Negative Nitrites Negative LAB ULKEST Negative Leukest Negative LAB UCOM Comments SEE COMMENT Result Comment: Microscopic Examination Performed LAB UWBC 0-5 /HPF WBC 0-5 LAB URBC 0-3 /HPF RBC 0-3 LAB UEPI /HPF Epithelial SEE Cells COMMENT Result Comment: Few Squamous Epithelial Cells LAB UMCOM Urine SEE Radha Comment COMMENT Result Comment: Urine received in non-preservative tube. Interpret results with caution. To ensure optimal and accurate results, transfer urine to the BD Vacutainer Plus urine preservative tube. Performed By: #### UA #### [facility] [address] [place], [place] [address] PROGRESS Observed: 07/11/2017 Status: COMPLETED Source: [place] 3:37 PM [facility] REPOSITORY HNO ID: [id number] Author: Elsa Mello (Coord) Service: (none) Author Type: Toolmaker Helper Type: Progress Notes Filed: 07/11/2017 3:37 PM Note Text: Patient had appointments today at [facility]. I provided a parking pass. Adriana Mello Patient Cable Driller [facility] [phone] / [id number] PROGRESS Observed: 07/11/2017 Status: COMPLETED Source: [place] 2:48 PM [facility] REPOSITORY HNO ID: [id number] Author: Willie SanchezRnDevonte Avery RN Service: (none) Author Type: Registered Nurse Type: Progress Notes Filed: 07/14/2017 8:38 AM Note Text: APHERESIS TPA INSTILLATION AT THERAPEUTIC APHERESIS PATIENT NAME: Paloma Cannon Problem: Unable to aspirate from the red lumen. Benefits, risks, alternatives of TPA instillation discussed. at 12:32 TPA instilled: 0.2 ml in the red lumen per policy. at 13:00 After 30 minutes, aspiration of TPA from red lumen unsuccessful. at 13:30 Additional TPA instilled: 0.2 ml in the red lumen per policy Second attempt to aspirate TPA after 30 minutes, unsuccessful. a 14:00 Additional TPA instilled: 0.2 ml in the red lumen per policy. Third attempt to aspirate TPA after 30 minutes, was success. Able to easily draw blood from the red lumen. Wasted 5 ml of blood. Flushed with 10 ml normal saline. Cap changed to the red lumen and curious cap to microclave cap. Signed by: Willie Avery RN APHERESIS TPA INSTILLATION AT THERAPEUTIC APHERESIS PATIENT NAME: Paloma Cannon Problem: Unable to aspirate from purple lumen of Samantha's catheter. Benefits, risks, alternatives of TPA instillation discussed. at 14:16 TPA instilled: 0.2 ml in the purple lumen. at 14:30 After 15 minutes, aspiration of TPA from the purple lumen unsuccessful. at 15:00 after 30 minutes Second attempt to aspirate TPA without success. Patient aware that the purple lumen is completely clog and can not draw blood or flush catheter. Will attempt cathflo again with next PLEX treatment. Signed by: Willie Avery RN PROGRESS Observed: 07/11/2017 Status: COMPLETED Source: [place] 1:05 PM [facility] REPOSITORY HNO ID: [id number] Author: Lisseth Claudio MD Service: (none) Author Type: Physician Type: Progress Notes Filed: 07/14/2017 8:38 AM Note Text: APHERESIS THERAPEUTIC PLASMAPHERESIS PATIENT NAME: Paloma Cannon : 1990 AGE:[age] year old Gender: female Treatment #: 80 Diagnosis: Catastrophic Antiphospholipid Antibody Syndrome Primary Service/Physician: Hematology: Dr. Bessy Andujar Treatment performed at Apheresis Unit ([facility]). Patient arrived by chair and with family. Patient identifier(s): Patient name Paloma Cannon, Date of - 1990. Procedure start time: 12:12 ROS: fever: none, chills: none, breathing unlabored, no cough, no chest pains, no swelling in hands, no ankle swelling, general energy good, urine output Good. PE: Patient alert and oriented. Both Samantha's and PermaCath Catheter sites dressing: Intact, Clean and Dry; Dressing changed to both Samantha's and Permacath and sites are clean, dry, without pain. Both Samantha's and PermaCath catheter sites are dry and no drainage; catheter tunnel non tender. Lungs: clear to auscultation, respirations normal, no oxygen, heart regular rhythm, peripheral edema none in hands or feet. Is the patient having any pain? No 0 on a scale of 0 to 10 Lab drawn at start: CBC, diff, CMP and PTT Access: left, indwelling, SC, central line and red lumen. blood return present and patency confirmed. Return: left, indwelling, SC, central line and blue lumen. blood return present and patency confirmed. Medications given: See [facility] audit report. Volume treated: 7076 ml whole blood Volume removed: 3830 ml plasma Volume replaced: 1000 ml NSS , 1000 ml 5% Albumin and 1493 ml FFP Extra fluids: none NSS ml. via separate IV. ACD used 707 ml. 10% calcium gluconate 30 ml. Net fluid balance: + 22 ml Upon completion of treatment: Labs drawn none Flushed Red Lumen with 10 ml NSS and locked with 3 ml 4% Sodium Citrate and Flushed Blue Lumen with 10 ml NSS and locked with 3 ml 4% Sodium Citrate. IV Access: Red and Blue Lumen caps changes Vital signs: temp 97.9, pulse 102, BP 157/67, Resp 20/min Procedure end time: 14:20 Patient tolerated well. Voiced no complaints. Patient discharged by cart to home. Next treatment: 07/24/2016 Patient instructed to continue abundant oral fluids Signed by: Willie Avery RN DR. FRED STONE, SR. HOSPITAL STAFF PHYSICIAN NOTE OF PERSONAL INVOLVEMENT IN CARE Ms. Cannon tolerated the treatment without complaint. No acute events. Her next plasma exchange will be in 2 weeks. Will continue to coordinate with Dr. Davidson. I reviewed the patients labs, medications and allergies prior to proceeding with this therapeutic treatment and discussed the case and parameters with the apheresis nurse. I have reviewed this therapeutic progress note documented by the apheresis nurse. I personally participated in all pertinent aspects and fernandes components of the therapeutic treatment. I was present during the treatment. Signature: Lisseth Claudio MD July 11, 2017 3:22 PM Pager: [phone] COMP METABOLIC PANEL Collected: 07/11/2017 Status: F Source: [place] 12:37 PM [facility] REPOSITORY TYPE CODE TESTS RESULT OUT OF REFERENCE UNITS RANGE LAB TP 6.3-8.0 g/dL Protein, Total 6.5 LAB ALB 3.9-4.9 g/dL Albumin 4.2 LAB CA 8.5-10.2 mg/dL Calcium, Total 8.9 LAB TBIL 0.2-1.3 mg/dL Bilirubin, Total 0.7 LAB ALKP 32-117 U/L Alkaline Phosphatase 80 LAB AST 13-35 U/L AST 16 LAB GLU 74-99 mg/dL Glucose High 121 Result Comment: The [place] [employer] (ADA) provides guidance for cutoff values for fasting glucose and random glucose. The ADA defines fasting as no caloric intake for at least 8 hours. Fas ting plasma glucose results between 100 to 125 mg/dL indicate increased risk for diabetes (prediabetes). Fasting plasma glucose results greater than or equal to 126 mg/dL meet the criteria for diagnosis of diabetes. In the absence of unequivocal hyperglycemia, results should be confirmed by repeat testing. In a patient with classic symptoms of hyperglycemia or hyperglycemic crisis, random plasma glucose results greater than or equal to 200 mg/dL meet the criteria for diagnosis of diabetes. Reference: Standards of Medical Care in Diabetes 2016, [place] [employer]. Diabetes Care. 2016.39(Suppl 1). LAB BUN 7-21 mg/dL BUN High 31 LAB CRET 0.58-0.96 mg/dL Creatinine High 0.97 LAB NA 136-144 mmol/L Sodium 143 LAB K 3.7-5.1 mmol/L Potassium 3.9 LAB CL 97-105 mmol/L Chloride High 108 LAB CO2 22-30 mmol/L Low CO2 19 LAB AGAP 9-18 mmol/L Anion Gap 16 LAB ALT 7-38 U/L ALT 16 LAB GFRAA eGFR- Amer. >60 LAB GFRNAA . eGFR-All Other Races >60 Result Comment: eGFR (Estimated GFR) Units of measure: mL/min/1.73 meters squared eGFR is derived from the reexpressed MDRD Study equation using the following parameters: serum creatinine, age, gender and race. The creatinine assay has been calibrated to be traceable to IDMS. An eGFR <60 mL/min/1.73m2 for >3 months is consistent with chronic kidney disease. Refer to KDOQI guidelines for clinical interpretation. In patients with unstable renal function, e.g. those with acute kidney injury, the eGFR may not accurately reflect actual GFR. Performed By: #### CMP, CBCDIF, PT #### [facility] [address] [place] [id number] CBC AND DIFFERENTIAL Collected: 07/11/2017 Status: F Source: [place] 12:37 PM [facility] REPOSITORY TYPE CODE TESTS RESULT OUT OF REFERENCE UNITS RANGE LAB WBC 3.70-11.00 k/uL WBC High 20.15 LAB RBC 3.90-5.20 m/uL RBC 3.98 LAB HGB 11.5-15.5 g/dL Low Hemoglobin 9.8 LAB HCT 36.0-46.0 % Low Hematocrit 32.3 LAB MCV 80.0-100.0 fL MCV 81.2 LAB MCH 26.0-34.0 pG Low MCH 24.6 LAB MCHC 30.5-36.0 g/dL Low MCHC 30.3 LAB RDWCV 11.5-15.0 % RDW-CV High 19.0 LAB PLTCT 150-400 k/uL Low Platelet Count 104 Result Comment: Result checked and verified No clot detected. LAB MPV 9.0-12.7 fL MPV <<DO NOT REPORT>> LAB ANEUT % Neut% 93.0 LAB AANEUT 1.45-7.50 k/uL Abs Neut 18.74 High LAB ALYMP % Lymph% 3.0 LAB AALYMP 1.00-4.00 k/uL Abs Lymph 0.60 Low LAB AMONO % [place]% 3.0 LAB AAMONO <0.87 k/uL Abs [place] 0.60 LAB AEOS % Eosin% 0.0 LAB AAEOS <0.46 k/uL Abs Eosin 0.00 LAB ABASO % Baso% 0.0 LAB AABASO <0.11 k/uL Abs Baso 0.00 LAB ABIMMG k/uL 18.74 ANC(includeSEG+BAND ) LAB AMYELO % Myelo% 1.0 LAB ANIIMI Anisocytosis Present LAB LFTIMI Left Shift Present LAB OVAIMI Ovalocytes Few LAB POLIMI Polychromasia Slight LAB RCFIMI RBC Fragments Few LAB PLTEST Platelet Estimate Platelet estimate decreased LAB DTYP DTYPE Manual Diff Performed By: #### CMP, CBCDIF, PT #### [facility] [address] [place], [place] [address] PROTIME Collected: 07/11/2017 Status: F Source: [place] 12:37 PM [facility] REPOSITORY TYPE CODE TESTS RESULT OUT OF RANGE REFERENCE UNITS LAB PSEC 9.7-13.0 sec High PT Sec 17.6 LAB INR 0.9-1.3 High PT INR 1.8 Result Comment: Vitamin K Antagonist (VKA) Therapeutic Range: INR 2 to 3 (Target INR of 2.5) Note: For patients treated with VKA drugs, such as warfarin, the [employer] 2012 Guideline recommends a therapeutic INR range of 2 to 3 (target INR of 2.5). This recommendation includes high-risk patients with antiphospholipid syndrome with previous arterial or venous thromboembolism, current-generation mechanical or bioprosthetic aortic heart valve replacement. Note: Patients with mechanical aortic valve replacement and additional risk factors for thromboembolic events (atrial fibrillation, previous thromboembolism, LV dysfunction, hypercoagulable conditions) or an older generation mechanical AVR (i.e., ball in-Cage) or any mechanical MVR should have a INR therapeutic range of 2.5 to 3.5 (target INR of 3). Michael GH, et al. Chest 2012, 141:7S-47S Diogenes RESENDIZ et al. [facility] 2017, 70: 252-289 Performed By: #### CMP, CBCDIF, PT #### [facility] [address] [place], [place] [address] CNOVSP Observed: 07/11/2017 Status: COMPLETED Source: [place] 12:30 PM [facility] REPOSITORY Visit (SP) Office ([facility]) PALOMA MARTINEZ ([id number]) 1990 F PTR Date Time Provider Department 07/11/17 12:30 PM [facility] During your visit today, we recorded the following information about you: Temperature Pulse Respiration Blood pressure 97.6 degrees 103/minute 24/minute 153/84 Weight 106.6 kg Lisseth Claudio MD, MD 07/14/2017 8:38 AM Signed [facility] THERAPEUTIC PLASMAPHERESIS PATIENT NAME: Paloma Cannon : 1990 AGE:[age] year old Gender: female Treatment #: 80 Diagnosis: Catastrophic Antiphospholipid Antibody Syndrome Primary Service/Physician: Hematology: Dr. Bessy Andujar Treatment performed at Apheresis Unit ([place] 2). Patient arrived by chair and with family. Patient identifier(s): Patient name Paloma Cannon, Date of - 1990. Procedure start time: 12:12 ROS: fever: none, chills: none, breathing unlabored, no cough, no chest pains, no swelling in hands, no ankle swelling, general energy good, urine output Good. PE: Patient alert and oriented. Both Samantha's and PermaCath Catheter sites dressing: Intact, Clean and Dry; Dressing changed to both Samantha's and Permacath and sites are clean, dry, without pain. Both Samantha's and PermaCath catheter sites are dry and no drainage; catheter tunnel non tender. Lungs: clear to auscultation, respirations normal, no oxygen, heart regular rhythm, peripheral edema none in hands or feet. Is the patient having any pain? No 0 on a scale of 0 to 10 Lab drawn at start: CBC, diff, CMP and PTT Access: left, indwelling, SC, central line and red lumen. blood return present and patency confirmed. Return: left, indwelling, SC, central line and blue lumen. blood return present and patency confirmed. Medications given: See [facility] audit report. Volume treated: 7076 ml whole blood Volume removed: 3830 ml plasma Volume replaced: 1000 ml NSS , 1000 ml 5% Albumin and 1493 ml FFP Extra fluids: none NSS ml. via separate IV. ACD used 707 ml. 10% calcium gluconate 30 ml. Net fluid balance: + 22 ml Upon completion of treatment: Labs drawn none Flushed Red Lumen with 10 ml NSS and locked with 3 ml 4% Sodium Citrate and Flushed Blue Lumen with 10 ml NSS and locked with 3 ml 4% Sodium Citrate. IV Access: Red and Blue Lumen caps changes Vital signs: temp 97.9, pulse 102, BP 157/67, Resp 20/min Procedure end time: 14:20 Patient tolerated well. Voiced no complaints. Patient discharged by cart to home. Next treatment: 07/24/2016 Patient instructed to continue abundant oral fluids Signed by: Willie Avery, RN DR. FRED STONE, SR. HOSPITAL STAFF PHYSICIAN NOTE OF PERSONAL INVOLVEMENT IN CARE Ms. Cannon tolerated the treatment without complaint. No acute events. Her next plasma exchange will be in 2 weeks. Will continue to coordinate with Dr. Davidson. I reviewed the patients labs, medications and allergies prior to proceeding with this therapeutic treatment and discussed the case and parameters with the apheresis nurse. I have reviewed this therapeutic progress note documented by the apheresis nurse. I personally participated in all pertinent aspects and fernandes components of the therapeutic treatment. I was present during the treatment. Signature: Lisseth Claudio MD July 11, 2017 3:22 PM Pager: [phone] Willie Avery RN, RN 07/14/2017 8:38 AM Signed AP[facility]ES[facility] TPA INSTILLATION AT THERAPEUTIC APHERESIS PATIENT NAME: Paloma Cannon Problem: Unable to aspirate from the red lumen. Benefits, risks, alternatives of TPA instillation discussed. at 12:32 TPA instilled: 0.2 ml in the red lumen per policy. at 13:00 After 30 minutes, aspiration of TPA from red lumen unsuccessful. at 13:30 Additional TPA instilled: 0.2 ml in the red lumen per policy Second attempt to aspirate TPA after 30 minutes, unsuccessful. a 14:00 Additional TPA instilled: 0.2 ml in the red lumen per policy. Third attempt to aspirate TPA after 30 minutes, was success. Able to easily draw blood from the red lumen. Wasted 5 ml of blood. Flushed with 10 ml normal saline. Cap changed to the red lumen and curious cap to microclave cap. Signed by: Willie Avery RN [facility] TPA INSTILLATION AT THERAPEUTIC APHERESIS PATIENT NAME: Paloma Cannon Problem: Unable to aspirate from purple lumen of Samantha's catheter. Benefits, risks, alternatives of TPA instillation discussed. at 14:16 TPA instilled: 0.2 ml in the purple lumen. at 14:30 After 15 minutes, aspiration of TPA from the purple lumen unsuccessful. at 15:00 after 30 minutes Second attempt to aspirate TPA without success. Patient aware that the purple lumen is completely clog and can not draw blood or flush catheter. Will attempt cathflo again with next PLEX treatment. Signed by: Willie Avery RN Referring Provider: LISSETH CLAUDIO [[id number]] Allergies As of Date: 07/11/2017 Noted Allergy Reaction RHUBARB 10/24/2013 2 - Rash 4 - Hives HEPARIN 10/24/2013 14 - Other: See Comments Comments: Per patient history of HIT - was on angiomax however then took l fondaparinux for bridging to coumadin. IV CONTRAST (IODINE) 2016 14 - Other: See Comments Comments: shuts kidneys down per patient RITUXIMAB 11/09/2016 14 - Other: See Comments Comments: Elevated cardiac enzymes Date Reviewed: 07/11/2017 Reviewed by: Willie Sauer) JEFF Avery - Fully Assessed Reason for Visit: Plasmapheresis [1323] Primary Visit Diagnosis:APS (antiphospholipid syndrome) (HCC) [D68.61] Order(s):HEMONC NURSING COMMUNICATION [[id number]] Order #: [id number]: 1 TREATMENT PARAMETERS [7180050] Order #: [id number]: 1 HEMONC NURSING COMMUNICATION [[id number]] Order #: [id number]: 1 STANDING [] diphenhydrAMINE 50 mg injection (BENADRYL)Disp: Rfl: [] hydrocortisone sodium succinate (PF) 100 mg injection (Solu-CORTEF)Disp: Rfl: [] calcium gluconate 3 g in NaCl 0.9% 1,000 mLDisp: Rfl: [] albumin (5%) 50 g infusionDisp: Rfl: citrate dextrose solution (ACD-A) infusionDisp: Rfl: 0.9% NaCl 10-20 mLDisp: Rfl: sodium citrate 4% 3-6 mL catheter lockDisp: Rfl: PROTHROMBIN TIME/PT [SQPT] Order #: [id number]. #:[id number] CBC + DIFF [SQCBCDIF] Order #: [id number]. #:[id number] COMP METABOLIC PANEL [SQCMP] Order #: [id number]. #:[id number] [] alteplase (CATHFLO) injection 2 mgDisp: Rfl: alteplase (CATHFLO) injection 2 mgDisp: Rfl: Prescriptions as of 07/11/2017 Sig: FENTANYL 25 MCG/HR TRANSDERMA* Apply 1 Patch as directed elaine* CYCLOPHOSPHAMIDE 50 MG CAPSULE Take by mouth daily. 2 caps -* PREDNISONE 5 MG TABLET Take by mouth daily. 20 mg - * SULFAMETHOXAZOLE 800 MG-TRIME* Take 1 tablet by mouth every * CARVEDILOL 25 MG TABLET Take 1 tablet by mouth twice * HYDRALAZINE 100 MG TABLET Take 1 tablet by mouth every * AMLODIPINE 5 MG TABLET Take 1 tablet by mouth once d* TORSEMIDE 20 MG TABLET Take 2 tablets by mouth once * GABAPENTIN 300 MG CAPSULE Please take gabapentin 200 mg* Patient taking differently: 300 mg three times daily. FLUTICASONE 50 MCG/ACTUATION * Use 1 [place] in each nostril o* WARFARIN 5 MG TABLET take by mouth as directed in * Patient taking differently: Take 5 mg by mouth once daily* PANTOPRAZOLE 40 MG TABLET,DEL* Take 1 tablet by mouth DAILY * ISOSORBIDE MONONITRATE ER 30 * Take 2 tablets by mouth once * MISCELLANEOUS MEDICAL SUPPLY * 1 package 30 - 40 mmHg pressu* CETIRIZINE 10 MG TABLET Take 1 tablet by mouth once d* Patient taking differently: Take 10 mg by mouth twice lis* SENNOSIDES 8.6 MG TABLET Take 1 tablet by mouth twice * More... More... Problem List As Of Date 07/11/2017 Noted Resolved Catastrophic Antiphospholipid antibody syndrome*INVALID FOR*01/24/2017 Priority: C More... 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 Severe Gastritis [K29.70] INVALID FOR*01/11/2017 Priority: F More... More... More... More... More... Anasarca [R60.1] INVALID FOR*01/24/2017 Priority: E More... More... More... More... More... More... 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 More... More... More... More... More... More... More... More... Hx pulmonary embolism [Z86.711] INVALID FOR*01/11/2017 Priority: C More... H/O deep vein thrombophlebitis of lower extremi*INVALID FOR*03/12/2015 Priority: C More... More... More... More... More... More... Hemoptysis [R04.2] INVALID FOR*12/27/2016 More... Elevated troponin [R74.8] INVALID FOR*01/11/2017 Anemia [D64.9] INVALID FOR* Priority: C More... Thrombocytopenia (HCC) [D69.6] INVALID FOR*01/11/2017 More... SUMMARY INVALID FOR*01/24/2017 Priority: A More... SIRS (systemic inflammatory response syndrome) *INVALID FOR*04/15/2015 Priority: D More... DVT (deep venous thrombosis) (HCC) [I82.409] INVALID FOR*01/11/2017 Priority: D More... Iron deficiency anemia [D50.9] INVALID FOR*01/11/2017 Priority: F More... Productive cough, hemoptysis [R04.2] INVALID FOR*01/04/2017 Priority: B Community acquired pneumonia [J18.9] INVALID FOR*01/11/2017 Respiratory failure with hypoxia (HCC) [J96.91] INVALID FOR*01/11/2017 Priority: B More... SOB (shortness of breath) [R06.02] INVALID FOR*12/28/2016 HTN (hypertension) [I10] INVALID FOR* Priority: E More... CAPRICE (acute kidney injury) (HCC) [N17.9] INVALID FOR* Priority: B More... 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 Hx of gastritis [Z87.19] INVALID FOR*01/11/2017 More... Nausea and vomiting [R11.2] INVALID FOR*04/28/2017 Priority: B More... 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 Anemia associated with acute blood loss [D62] INVALID FOR*01/11/2017 More... More... Acute on chronic respiratory failure with hypox*INVALID FOR* Priority: A More... Abdominal pain [R10.9] INVALID FOR* Priority: E More... Vomiting [R11.10] INVALID FOR*01/04/2017 Antiphospholipid syndrome (HCC) [D68.61] INVALID FOR*01/04/2017 Severe protein-calorie malnutrition (HCC) [E43] INVALID FOR*03/12/2017 Priority: B Hypoxia [R09.02] INVALID FOR*01/11/2017 Acute hypoxemic respiratory failure (HCC) [J96.*INVALID FOR*12/28/2016 More... Personal history of DVT (deep vein thrombosis) *INVALID FOR*01/11/2017 More... History of heparin-induced thrombocytopenia [Z8*INVALID FOR* Priority: C More... Hospital-acquired pneumonia [J18.9] INVALID FOR*12/28/2016 Priority: B More... Hypoxemia [R09.02] INVALID FOR*01/11/2017 (HFpEF) heart failure with preserved ejection f*INVALID FOR* Priority: C More... Headache [R51] INVALID FOR*01/18/2017 Priority: I More... More... Peripheral neuropathy (HCC) [G62.9] INVALID FOR* Priority: G Joint pain [M25.50] INVALID FOR*01/11/2017 More... Diffuse arthralgia [M25.50] INVALID FOR*01/11/2017 Priority: C More... CKD (chronic kidney disease) stage 3, GFR 30-59*INVALID FOR* Priority: C More... Obesity, Class III, BMI >= 40 (morbid obesity) *INVALID FOR* Priority: F Hypertensive emergency [I16.1] INVALID FOR*12/05/2016 More... Acute on chronic diastolic congestive heart ena*INVALID FOR*01/11/2017 More... APS (antiphospholipid syndrome) (HCC) [D68.61] INVALID FOR* Priority: C More... Elevated troponin level [R74.8] INVALID FOR*12/05/2016 More... Hypertensive urgency [I16.0] INVALID FOR*12/05/2016 PNA (pneumonia) [J18.9] INVALID FOR*12/27/2016 Acute respiratory failure with hypoxia (HCC) [J*INVALID FOR*12/27/2016 Clostridium difficile colitis [A04.72] INVALID FOR*12/28/2016 Hemoptysis [R04.2] INVALID FOR*01/20/2017 More... More... Supratherapeutic INR [R79.1] INVALID FOR*04/28/2017 Priority: B More... Cholelithiasis [K80.20] INVALID FOR*01/24/2017 Priority: B More... Ecchymosis of right eye [S05.11XA] INVALID FOR*01/18/2017 Priority: H More... Anticoagulation management encounter [Z51.81, Z*INVALID FOR* Priority: D Acute respiratory failure (HCC) [J96.00] INVALID FOR*02/10/2017 Priority: A More... Pulmonary HTN (HCC) [I27.20] INVALID FOR* Priority: F More... GERD (gastroesophageal reflux disease) [K21.9] INVALID FOR* Priority: E More... RUQ abdominal pain [R10.11] INVALID FOR* Priority: E More... Hemoptysis [R04.2] INVALID FOR*03/11/2017 More... Diarrhea [R19.7] INVALID FOR* Priority: E More... Bacteremia [R78.81] INVALID FOR* Priority: B More... 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 Edema [R60.9] INVALID FOR* Priority: A More... Flu-like symptoms [R68.89] INVALID FOR*06/10/2017 Hypercoagulable state (HCC) [D68.59] INVALID FOR* Priority: B More... Healthcare maintenance [Z00.00] INVALID FOR* More... Iron deficiency anemia secondary to inadequate *INVALID FOR* Priority: D More... Encounter Status:Closed by LISSETH CLAUDIO MD on 07/14/17 HOSP Observed: 07/11/2017 Status: COMPLETED Source: [place] 12:00 AM [facility] REPOSITORY Patient Update ([facility]) PALOMA MARTINEZ ([id number]) 1990 F PTR Date Time Provider Department 07/11/17 ELSA MELLO ([place]) [facility] During your visit today, we recorded the following information about you: Capri Sandhu 07/11/2017 3:37 PM Signed Patient had appointments today at [facility]. I provided a parking pass. Adriana Mello Patient [employer]iller [facility] [phone] / [phone] Allergies As of Date: 07/11/2017 Noted Allergy Reaction RHUBARB 10/24/2013 2 - Rash 4 - Hives HEPARIN 10/24/2013 14 - Other: See Comments Comments: Per patient history of HIT - was on angiomax however then took l fondaparinux for bridging to coumadin. IV CONTRAST (IODINE) 2016 14 - Other: See Comments Comments: shuts kidneys down per patient RITUXIMAB 11/09/2016 14 - Other: See Comments Comments: Elevated cardiac enzymes Date Reviewed: 07/11/2017 Reviewed by: Willie (Rn) JEFF Avery - Fully Assessed Reason for Visit: Cancer Patient Support [4087] Prescriptions as of 07/11/2017 Sig: CYCLOPHOSPHAMIDE 50 MG CAPSULE Take by mouth daily. 2 caps -* PREDNISONE 5 MG TABLET Take by mouth daily. 20 mg - * SULFAMETHOXAZOLE 800 MG-TRIME* Take 1 tablet by mouth every * CARVEDILOL 25 MG TABLET Take 1 tablet by mouth twice * HYDRALAZINE 100 MG TABLET Take 1 tablet by mouth every * AMLODIPINE 5 MG TABLET Take 1 tablet by mouth once d* TORSEMIDE 20 MG TABLET Take 2 tablets by mouth once * FENTANYL 25 MCG/HR TRANSDERMA* Apply 1 Patch as directed elaine* GABAPENTIN 300 MG CAPSULE Please take gabapentin 200 mg* Patient taking differently: 300 mg three times daily. FLUTICASONE 50 MCG/ACTUATION * Use 1 [place] in each nostril o* WARFARIN 5 MG TABLET take by mouth as directed in * Patient taking differently: Take 5 mg by mouth once daily* PANTOPRAZOLE 40 MG TABLET,DEL* Take 1 tablet by mouth DAILY * ISOSORBIDE MONONITRATE ER 30 * Take 2 tablets by mouth once * MISCELLANEOUS MEDICAL SUPPLY * 1 package 30 - 40 mmHg pressu* CETIRIZINE 10 MG TABLET Take 1 tablet by mouth once d* Patient taking differently: Take 10 mg by mouth twice lis* SENNOSIDES 8.6 MG TABLET Take 1 tablet by mouth twice * More... More... Problem List As Of Date 07/11/2017 Noted Resolved Catastrophic Antiphospholipid antibody syndrome*INVALID FOR*01/24/2017 Priority: C More... 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 Severe Gastritis [K29.70] INVALID FOR*01/11/2017 Priority: F More... More... More... More... More... Anasarca [R60.1] INVALID FOR*01/24/2017 Priority: E More... More... More... More... More... More... 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 More... More... More... More... More... More... More... More... Hx pulmonary embolism [Z86.711] INVALID FOR*01/11/2017 Priority: C More... H/O deep vein thrombophlebitis of lower extremi*INVALID FOR*03/12/2015 Priority: C More... More... More... More... More... More... Hemoptysis [R04.2] INVALID FOR*12/27/2016 More... Elevated troponin [R74.8] INVALID FOR*01/11/2017 Anemia [D64.9] INVALID FOR* Priority: C More... Thrombocytopenia (HCC) [D69.6] INVALID FOR*01/11/2017 More... SUMMARY INVALID FOR*01/24/2017 Priority: A More... SIRS (systemic inflammatory response syndrome) *INVALID FOR*04/15/2015 Priority: D More... DVT (deep venous thrombosis) (HCC) [I82.409] INVALID FOR*01/11/2017 Priority: D More... Iron deficiency anemia [D50.9] INVALID FOR*01/11/2017 Priority: F More... Productive cough, hemoptysis [R04.2] INVALID FOR*01/04/2017 Priority: B Community acquired pneumonia [J18.9] INVALID FOR*01/11/2017 Respiratory failure with hypoxia (HCC) [J96.91] INVALID FOR*01/11/2017 Priority: B More... SOB (shortness of breath) [R06.02] INVALID FOR*12/28/2016 HTN (hypertension) [I10] INVALID FOR* Priority: E More... CAPRICE (acute kidney injury) (HCC) [N17.9] INVALID FOR* Priority: B More... 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 Hx of gastritis [Z87.19] INVALID FOR*01/11/2017 More... Nausea and vomiting [R11.2] INVALID FOR*04/28/2017 Priority: B More... 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 Anemia associated with acute blood loss [D62] INVALID FOR*01/11/2017 More... More... Acute on chronic respiratory failure with hypox*INVALID FOR* Priority: A More... Abdominal pain [R10.9] INVALID FOR* Priority: E More... Vomiting [R11.10] INVALID FOR*01/04/2017 Antiphospholipid syndrome (HCC) [D68.61] INVALID FOR*01/04/2017 Severe protein-calorie malnutrition (HCC) [E43] INVALID FOR*03/12/2017 Priority: B Hypoxia [R09.02] INVALID FOR*01/11/2017 Acute hypoxemic respiratory failure (HCC) [J96.*INVALID FOR*12/28/2016 More... Personal history of DVT (deep vein thrombosis) *INVALID FOR*01/11/2017 More... History of heparin-induced thrombocytopenia [Z8*INVALID FOR* Priority: C More... Hospital-acquired pneumonia [J18.9] INVALID FOR*12/28/2016 Priority: B More... Hypoxemia [R09.02] INVALID FOR*01/11/2017 (HFpEF) heart failure with preserved ejection f*INVALID FOR* Priority: C More... Headache [R51] INVALID FOR*01/18/2017 Priority: I More... More... Peripheral neuropathy (HCC) [G62.9] INVALID FOR* Priority: G Joint pain [M25.50] INVALID FOR*01/11/2017 More... Diffuse arthralgia [M25.50] INVALID FOR*01/11/2017 Priority: C More... CKD (chronic kidney disease) stage 3, GFR 30-59*INVALID FOR* Priority: C More... Obesity, Class III, BMI >= 40 (morbid obesity) *INVALID FOR* Priority: F Hypertensive emergency [I16.1] INVALID FOR*12/05/2016 More... Acute on chronic diastolic congestive heart ena*INVALID FOR*01/11/2017 More... APS (antiphospholipid syndrome) (HCC) [D68.61] INVALID FOR* Priority: C More... Elevated troponin level [R74.8] INVALID FOR*12/05/2016 More... Hypertensive urgency [I16.0] INVALID FOR*12/05/2016 PNA (pneumonia) [J18.9] INVALID FOR*12/27/2016 Acute respiratory failure with hypoxia (HCC) [J*INVALID FOR*12/27/2016 Clostridium difficile colitis [A04.72] INVALID FOR*12/28/2016 Hemoptysis [R04.2] INVALID FOR*01/20/2017 More... More... Supratherapeutic INR [R79.1] INVALID FOR*04/28/2017 Priority: B More... Cholelithiasis [K80.20] INVALID FOR*01/24/2017 Priority: B More... Ecchymosis of right eye [S05.11XA] INVALID FOR*01/18/2017 Priority: H More... Anticoagulation management encounter [Z51.81, Z*INVALID FOR* Priority: D Acute respiratory failure (HCC) [J96.00] INVALID FOR*02/10/2017 Priority: A More... Pulmonary HTN (HCC) [I27.20] INVALID FOR* Priority: F More... GERD (gastroesophageal reflux disease) [K21.9] INVALID FOR* Priority: E More... RUQ abdominal pain [R10.11] INVALID FOR* Priority: E More... Hemoptysis [R04.2] INVALID FOR*03/11/2017 More... Diarrhea [R19.7] INVALID FOR* Priority: E More... Bacteremia [R78.81] INVALID FOR* Priority: B More... 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 Edema [R60.9] INVALID FOR* Priority: A More... Flu-like symptoms [R68.89] INVALID FOR*06/10/2017 Hypercoagulable state (HCC) [D68.59] INVALID FOR* Priority: B More... Healthcare maintenance [Z00.00] INVALID FOR* More... Iron deficiency anemia secondary to inadequate *INVALID FOR* Priority: D More... Encounter Status:Closed by ELSA MELLO on 07/11/17 PROTHROMBIN TIME W/INR Collected: 07/07/2017 Status: F Source: [place] 8:20 AM [facility] REPOSITORY Order Comment: MEDOUT/PORT TYPE CODE TESTS RESULT OUT OF REFERENCE UNITS RANGE LAB L300.4150 11.7-14.9 SECONDS High PROTIME 40.9 LAB L300.4200 High alert INR 4.5 Result Comment: CRITICAL VALUE VERIFIED. FAXED TO [facility]. [phone] 07/07/17 0843 Nathalia Jones. Performed By: #### L300.3900 #### [facility] [address] [place], [address] OBSOLETE Observed: 07/06/2017 Status: COMPLETED Source: [place] 12:00 AM [facility] REPOSITORY Refill (MICHAEL) PALOMA MARTINEZ ([id number]) 1990 F PTR Date Time Provider Department 07/06/17 GUILLAUME ALICEA During your visit today, we recorded the following information about you: Allergies As of Date: 07/06/2017 Noted Allergy Reaction RHUBARB 10/24/2013 2 - Rash 4 - Hives HEPARIN 10/24/2013 14 - Other: See Comments Comments: Per patient history of HIT - was on angiomax however then took l fondaparinux for bridging to coumadin. IV CONTRAST (IODINE) 2016 14 - Other: See Comments Comments: shuts kidneys down per patient RITUXIMAB 11/09/2016 14 - Other: See Comments Comments: Elevated cardiac enzymes Date Reviewed: 06/27/2017 Reviewed by: Carmita (Rn) JEFF Verdin - Fully Assessed Reason for Visit: Refill Request [94] Cmt: recieved approval for med cyclophosphamide 07/09/18 from [facility] Reason For Visit History Recorded Order(s):cyclophosphamide (CYTOXAN) 50 mg capsuleTake by mouth daily. 2 caps - 7 days; 3 caps- 7 days; 4 caps daily thereafterDisp: 120 capsuleRfl: 6 Prescriptions as of 07/06/2017 Sig: CYCLOPHOSPHAMIDE 50 MG CAPSULE Take by mouth daily. 2 caps -* PREDNISONE 5 MG TABLET Take by mouth daily. 20 mg - * SULFAMETHOXAZOLE 800 MG-TRIME* Take 1 tablet by mouth every * CARVEDILOL 25 MG TABLET Take 1 tablet by mouth twice * HYDRALAZINE 100 MG TABLET Take 1 tablet by mouth every * AMLODIPINE 5 MG TABLET Take 1 tablet by mouth once d* TORSEMIDE 20 MG TABLET Take 2 tablets by mouth once * FENTANYL 25 MCG/HR TRANSDERMA* Apply 1 Patch as directed elaine* GABAPENTIN 300 MG CAPSULE Please take gabapentin 200 mg* Patient taking differently: 300 mg three times daily. FLUTICASONE 50 MCG/ACTUATION * Use 1 [place] in each nostril o* WARFARIN 5 MG TABLET take by mouth as directed in * Patient taking differently: Take 5 mg by mouth once daily* PANTOPRAZOLE 40 MG TABLET,DEL* Take 1 tablet by mouth DAILY * ISOSORBIDE MONONITRATE ER 30 * Take 2 tablets by mouth once * MISCELLANEOUS MEDICAL SUPPLY * 1 package 30 - 40 mmHg pressu* CETIRIZINE 10 MG TABLET Take 1 tablet by mouth once d* Patient taking differently: Take 10 mg by mouth twice lis* SENNOSIDES 8.6 MG TABLET Take 1 tablet by mouth twice * More... More... Problem List As Of Date 07/06/2017 Noted Resolved Catastrophic Antiphospholipid antibody syndrome*INVALID FOR*01/24/2017 Priority: C More... 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 Severe Gastritis [K29.70] INVALID FOR*01/11/2017 Priority: F More... More... More... More... More... Anasarca [R60.1] INVALID FOR*01/24/2017 Priority: E More... More... More... More... More... More... 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 More... More... More... More... More... More... More... More... Hx pulmonary embolism [Z86.711] INVALID FOR*01/11/2017 Priority: C More... H/O deep vein thrombophlebitis of lower extremi*INVALID FOR*03/12/2015 Priority: C More... More... More... More... More... More... Hemoptysis [R04.2] INVALID FOR*12/27/2016 More... Elevated troponin [R74.8] INVALID FOR*01/11/2017 Anemia [D64.9] INVALID FOR* Priority: C More... Thrombocytopenia (HCC) [D69.6] INVALID FOR*01/11/2017 More... SUMMARY INVALID FOR*01/24/2017 Priority: A More... SIRS (systemic inflammatory response syndrome) *INVALID FOR*04/15/2015 Priority: D More... DVT (deep venous thrombosis) (HCC) [I82.409] INVALID FOR*01/11/2017 Priority: D More... Iron deficiency anemia [D50.9] INVALID FOR*01/11/2017 Priority: F More... Productive cough, hemoptysis [R04.2] INVALID FOR*01/04/2017 Priority: B Community acquired pneumonia [J18.9] INVALID FOR*01/11/2017 Respiratory failure with hypoxia (HCC) [J96.91] INVALID FOR*01/11/2017 Priority: B More... SOB (shortness of breath) [R06.02] INVALID FOR*12/28/2016 HTN (hypertension) [I10] INVALID FOR* Priority: E More... CAPRICE (acute kidney injury) (HCC) [N17.9] INVALID FOR* Priority: B More... 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 Hx of gastritis [Z87.19] INVALID FOR*01/11/2017 More... Nausea and vomiting [R11.2] INVALID FOR*04/28/2017 Priority: B More... 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 Anemia associated with acute blood loss [D62] INVALID FOR*01/11/2017 More... More... Acute on chronic respiratory failure with hypox*INVALID FOR* Priority: A More... Abdominal pain [R10.9] INVALID FOR* Priority: E More... Vomiting [R11.10] INVALID FOR*01/04/2017 Antiphospholipid syndrome (HCC) [D68.61] INVALID FOR*01/04/2017 Severe protein-calorie malnutrition (HCC) [E43] INVALID FOR*03/12/2017 Priority: B Hypoxia [R09.02] INVALID FOR*01/11/2017 Acute hypoxemic respiratory failure (HCC) [J96.*INVALID FOR*12/28/2016 More... Personal history of DVT (deep vein thrombosis) *INVALID FOR*01/11/2017 More... History of heparin-induced thrombocytopenia [Z8*INVALID FOR* Priority: C More... Hospital-acquired pneumonia [J18.9] INVALID FOR*12/28/2016 Priority: B More... Hypoxemia [R09.02] INVALID FOR*01/11/2017 (HFpEF) heart failure with preserved ejection f*INVALID FOR* Priority: C More... Headache [R51] INVALID FOR*01/18/2017 Priority: I More... More... Peripheral neuropathy (HCC) [G62.9] INVALID FOR* Priority: G Joint pain [M25.50] INVALID FOR*01/11/2017 More... Diffuse arthralgia [M25.50] INVALID FOR*01/11/2017 Priority: C More... CKD (chronic kidney disease) stage 3, GFR 30-59*INVALID FOR* Priority: C More... Obesity, Class III, BMI >= 40 (morbid obesity) *INVALID FOR* Priority: F Hypertensive emergency [I16.1] INVALID FOR*12/05/2016 More... Acute on chronic diastolic congestive heart ena*INVALID FOR*01/11/2017 More... APS (antiphospholipid syndrome) (HCC) [D68.61] INVALID FOR* Priority: C More... Elevated troponin level [R74.8] INVALID FOR*12/05/2016 More... Hypertensive urgency [I16.0] INVALID FOR*12/05/2016 PNA (pneumonia) [J18.9] INVALID FOR*12/27/2016 Acute respiratory failure with hypoxia (HCC) [J*INVALID FOR*12/27/2016 Clostridium difficile colitis [A04.72] INVALID FOR*12/28/2016 Hemoptysis [R04.2] INVALID FOR*01/20/2017 More... More... Supratherapeutic INR [R79.1] INVALID FOR*04/28/2017 Priority: B More... Cholelithiasis [K80.20] INVALID FOR*01/24/2017 Priority: B More... Ecchymosis of right eye [S05.11XA] INVALID FOR*01/18/2017 Priority: H More... Anticoagulation management encounter [Z51.81, Z*INVALID FOR* Priority: D Acute respiratory failure (HCC) [J96.00] INVALID FOR*02/10/2017 Priority: A More... Pulmonary HTN (HCC) [I27.20] INVALID FOR* Priority: F More... GERD (gastroesophageal reflux disease) [K21.9] INVALID FOR* Priority: E More... RUQ abdominal pain [R10.11] INVALID FOR* Priority: E More... Hemoptysis [R04.2] INVALID FOR*03/11/2017 More... Diarrhea [R19.7] INVALID FOR* Priority: E More... Bacteremia [R78.81] INVALID FOR* Priority: B More... 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 Edema [R60.9] INVALID FOR* Priority: A More... Flu-like symptoms [R68.89] INVALID FOR*06/10/2017 Hypercoagulable state (HCC) [D68.59] INVALID FOR* Priority: B More... Healthcare maintenance [Z00.00] INVALID FOR* More... Iron deficiency anemia secondary to inadequate *INVALID FOR* Priority: D More... Prescriptions ordered this encounter Disp Refills Start End CYCLOPHOSPHAMIDE 50 MG CAPSULE 120 * 6 07/06/2017 Sig: Take by mouth daily. 2 caps - 7 days; 3 caps- 7 days; 4 caps daily thereafter Medications Discontinued During This Encounter cyclophosphamide (CYTOXAN) 50 mg cap* 120 * 6 06/20/2017 07/06/2017 Sig: Take by mouth daily. 2 caps - 7 days; 3 caps- 7 days; 4 caps daily thereafter Disc: Reason for discontinue is not on file. Encounter Status:Closed by ANIKA COOK MD on 07/06/17 PROTHROMBIN TIME W/INR Collected: 06/30/2017 Status: F Source: [place] 8:25 AM [facility] REPOSITORY Order Comment: MEDOUT/PORT TYPE CODE TESTS RESULT OUT OF RANGE REFERENCE UNITS LAB L300.4150 11.7-14.9 SECONDS High PROTIME 20.5 LAB L300.4200 Normal INR 1.8 Performed By: #### L300.3900 #### [facility] [address] [place], [address] PROGRESS Observed: 06/27/2017 Status: COMPLETED Source: [place] 2:36 PM [facility] REPOSITORY HNO ID: [id number] Author: Orin (Rn) JEFF Lares Service: (none) Author Type: Registered Nurse Type: Progress Notes Filed: 07/13/2017 10:16 AM Note Text: Established Patient Paloma Cannon June 27, 2017 ? HPI Paloma Cannon was seen today in apheresis for her catastrophic antiphospholipid syndrome. She continues to receive plasma exchange, which is now being performed every 2 weeks to attempt to lower?her antiphospholipid antibody level. When last checked on 05/30 her APL levels were still quite high. However, she has felt generally well. She was seen yesterday by Dr Alicea who recommended a course of oral cyclophosphamide for her pulmonary hemorrhage. Current Outpatient Prescriptions on File Prior to Visit: cyclophosphamide (CYTOXAN) 50 mg capsule Take by mouth daily. 2 caps - 7 days; 3 caps- 7 days; 4 caps daily thereafter predniSONE (DELTASONE) 5 mg tablet Take by mouth daily. 20 mg - Jun; 15 mg - Jul; 10 mg - Aug; 5 mg - Sep onwards sulfamethoxazole-trimethoprim (BACTRIM DS) 800-160 mg per tablet Take 1 tablet by mouth every Monday,Monday,Monday. carvedilol (COREG) 25 mg tablet Take 1 tablet by mouth twice daily with meals. HOLD FOR SBP <110 AND HR <60 hydrALAZINE (APRESOLINE) 100 mg tablet Take 1 tablet by mouth every 8 hours. HOLD FOR SBP <110 amLODIPine (NORVASC) 5 mg tablet Take 1 tablet by mouth once daily. HOLD FOR SBP <120 torsemide (DEMADEX) 20 mg tablet Take 2 tablets by mouth once daily. fentaNYL (DURAGESIC) 25 mcg/hr Apply 1 Patch as directed every 72 hours. gabapentin (NEURONTIN) 300 mg capsule Please take gabapentin 200 mg three times daily for 3 days.If you tolerate it, increase to 300 mg three times a day for 3 days.If you tolerate it, increase to 600 mg at bedtime and 300 mg daytime for 3 days.If you tolerate it, increase to 600 mg three times a day for 3 days.If you tolerate it, increase to 900 mg at bedtime and 600 mg daytime for 3 days.If you tolerate it, increase to 900 mg three times a day for 3 days. (Patient taking differently: 300 mg three times daily.) fluticasone (FLONASE) 50 mcg/actuation nasal spray Use 1 [place] in each nostril once daily. warfarin (COUMADIN) 5 mg tablet take by mouth as directed in the evening to keep INR between 2.0-3.0 (Patient taking differently: Take 5 mg by mouth once daily. take by mouth as directed in the evening to keep INR between 2.0-3.0 Apheresis weeks takes 7.5 mg x3 days and holds 2-3 days prior to apheresis.) pantoprazole DR (PROTONIX) 40 mg tablet Take 1 tablet by mouth DAILY (6 AM). isosorbide mononitrate ER (IMDUR) 30 mg 24 hr tablet Take 2 tablets by mouth once daily. Please hold if your blood pressure is less than 120/80. Miscellaneous Medical Supply misc 1 package 30 - 40 mmHg pressure panty hose compression stockings. cetirizine 10 mg tablet Take 1 tablet by mouth once daily. (Patient taking differently: Take 10 mg by mouth twice daily.) senna 8.6 mg tab Take 1 tablet by mouth twice daily as needed. PHYSICAL EXAMINATION: General appearance: Well appearing, alert, in no acute distress, well-hydrated, well nourished., Overweight Skin: Skin color, texture, turgor normal, no suspicious rashes or lesions Head: Normocephalic, no masses, lesions, tenderness or abnormalities Eyes: Anicteric sclera. Pupils are equally round and reactive to light. Extraocular movements are intact. Ears: External ears normal, canals clear, Not examined Nose/Sinuses: Not examined Oropharynx: Lips, mucosa, and tongue normal, teeth and gums normal, oropharynx normal Neck: Supple, no adenopathy; thyroid symmetric, normal size, no bruits Back: Normal exam, not examined Lungs: Lungs clear to auscultation. Some crackles with inspiration Heart: RRR without murmur, gallop, or rubs. No ectopy Abdomen: Normal abdominal exam, Abdomen soft, non-tender. Bowel sounds normal. No masses, organomegaly Extremities: No deformities, edema, skin discoloration, clubbing or cyanosis. Musculoskeletal: No joint swelling, deformity, or tenderness Peripheral pulses: Not examined Neuro: Gait normal. Reflexes normal and symmetric. Sensation grossly intact. No lab today. Will repeat LAC panel with next plasma exchange Impression: stable APS. To start CTX for pulmonary hemorrhage. I will continue to see her in apheresis. Otherwise no changes. Kem Andujar MD June 27, 2017 2:42 PM PROGRESS Observed: 06/27/2017 Status: COMPLETED Source: [place] 1:39 PM [facility] REPOSITORY HNO ID: [id number] Author: Elsa Kelley (Peyman Mello Service: (none) Author Type: Toolmaker Helper Type: Progress Notes Filed: 07/07/2017 1:39 PM Note Text: Patient had appointments today at [facility]. I provided a parking pass. Adriana Mello Patient Cable Driller [facility] [phone] / [phone] PROGRESS Observed: 06/27/2017 Status: COMPLETED Source: [place] 1:38 PM [facility] REPOSITORY HNO ID: [id number] Author: Lisseth Claudio MD Service: (none) Author Type: Physician Type: Progress Notes Filed: 06/27/2017 4:56 PM Note Text: APHERESIS THERAPEUTIC PLASMAPHERESIS PATIENT NAME: Paloma Cannon : 1990 AGE:[age] year old Gender: female Treatment #: [id number] Diagnosis: Anti-phospholipid antibody syndrome Primary Service/Physician: Hematology: Dr. Bessy Andujar Treatment performed at Apheresis Unit ([facility]). Patient arrived by chair. Patient identifier(s): Patient name Paloma Cannon, Date of - 1990. Procedure start time: 1212 ROS: fever: none, chills: none, breathing unlabored, no cough, no chest pains, no swelling in hands, no ankle swelling, general energy good, urine output Good. PE: Patient alert and oriented. Catheter site dressing: Intact and Clean; Dressing changed X2 Catheter site dry and no drainage; catheter tunnel non tender. Lungs: clear to auscultation, respirations normal, no oxygen, heart regular rhythm, peripheral edema none in hands or feet. Is the patient having any pain? No 0 on a scale of [address] Cisneros here to see patient. Lab drawn at start: CBC, CMP and Lupus Anticoag PL Access: left, indwelling, IJ and red port Return: blue port Medications given: See [facility] audit report. Volume treated: 7027 ml whole blood Volume removed: 4495 ml plasma Volume replaced: 1000 ml NSS , 1000 ml 5% Albumin and 1556 ml FFP ACD used ml. 10% calcium gluconate 30 ml. Net fluid balance: 14 ml Upon completion of treatment: Flushed All with 10 ml NSS and 3 ml 4% Sodium Citrate. Vital signs: temp 98.3, pulse 92, BP 132/75, Resp 18/min Procedure end time: 1444 Patient tolerated well. Voiced no complaints. Patient discharged per wheelchair to home. Next treatment: 07/11/17 Patient instructed to continue abundant oral fluids. Signed by: Carmita Verdin RN DR. FRED STONE, SR. HOSPITAL STAFF PHYSICIAN NOTE OF PERSONAL INVOLVEMENT IN CARE Ms. Cannon tolerated the treatment without complaints. She is starting cytoxan after she gets insurance authorization. Her next plasma exchange will be in 2 weeks. Plan discussed with the patient and her . I reviewed the patients labs, medications and allergies prior to proceeding with this therapeutic treatment and discussed the case and parameters with the apheresis nurse. I have reviewed this therapeutic progress note documented by the apheresis nurse. I personally participated in all pertinent aspects and fernandes components of the therapeutic treatment. I was present during the treatment. Signature: Lisseth Claudio MD June 27, 2017 4:55 PM Pager: [phone] CBC AND DIFFERENTIAL Collected: 06/27/2017 Status: F Source: [place] 12:58 PM [facility] REPOSITORY TYPE CODE TESTS RESULT OUT OF REFERENCE UNITS RANGE LAB WBC 3.70-11.00 k/uL WBC 10.72 LAB RBC 3.90-5.20 m/uL Low RBC 3.58 LAB HGB 11.5-15.5 g/dL Low Hemoglobin 8.8 LAB HCT 36.0-46.0 % Low Hematocrit 28.9 LAB MCV 80.0-100.0 fL MCV 80.7 LAB MCH 26.0-34.0 pG Low MCH 24.6 LAB MCHC 30.5-36.0 g/dL Low MCHC 30.4 LAB RDWCV 11.5-15.0 % RDW-CV High 18.2 LAB PLTCT 150-400 k/uL Low Platelet Count 77 Result Comment: Result checked and verified No clot detected. LAB MPV 9.0-12.7 fL MPV <<DO NOT REPORT>> LAB ANEUT % Neut% 89.9 LAB AANEUT 1.45-7.50 k/uL Abs High Neut 9.64 LAB ALYMP % Lymph% 5.1 LAB AALYMP 1.00-4.00 k/uL Abs Low Lymph 0.55 LAB AMONO % [place]% 4.0 LAB AAMONO <0.87 k/uL Abs [place] 0.43 LAB AEOS % Eosin% 0.5 LAB AAEOS <0.46 k/uL Abs Eosin 0.05 LAB ABASO % Baso% 0.5 LAB AABASO <0.11 k/uL Abs Baso 0.05 LAB AUNRBC 0 /100 WBC NRBCs 0.0 LAB ABNRBC <0.01 k/uL Absolute nRBC <0.01 LAB DTYP DTYPE Auto Diff Performed By: #### CBCDIF, CMP #### [facility] [address] [place], [place] [address] COMP METABOLIC PANEL Collected: 06/27/2017 Status: F Source: [place] 12:58 PM [facility] REPOSITORY TYPE CODE TESTS RESULT OUT OF REFERENCE UNITS RANGE LAB TP 6.3-8.0 g/dL Low Protein, Total 6.2 LAB ALB 3.9-4.9 g/dL Low Albumin 3.8 LAB CA 8.5-10.2 mg/dL Calcium, Total 8.7 LAB TBIL 0.2-1.3 mg/dL Bilirubin, Total 0.7 LAB ALKP 32-117 U/L Alkaline Phosphatase 68 LAB AST 13-35 U/L AST 25 LAB GLU 74-99 mg/dL Glucose High 142 Result Comment: The [place] [employer] (ADA) provides guidance for cutoff values for fasting glucose and random glucose. The ADA defines fasting as no caloric intake for at least 8 hours. Fas ting plasma glucose results between 100 to 125 mg/dL indicate increased risk for diabetes (prediabetes). Fasting plasma glucose results greater than or equal to 126 mg/dL meet the criteria for diagnosis of diabetes. In the absence of unequivocal hyperglycemia, results should be confirmed by repeat testing. In a patient with classic symptoms of hyperglycemia or hyperglycemic crisis, random plasma glucose results greater than or equal to 200 mg/dL meet the criteria for diagnosis of diabetes. Reference: Standards of Medical Care in Diabetes 2016, [place] [employer]. Diabetes Care. 2016.39(Suppl 1). LAB BUN 7-21 mg/dL BUN 14 LAB CRET 0.58-0.96 mg/dL Creatinine 0.95 LAB NA 136-144 mmol/L Sodium 141 LAB K 3.7-5.1 mmol/L Potassium Low 3.2 LAB CL 97-105 mmol/L Chloride 101 LAB CO2 22-30 mmol/L CO2 24 LAB AGAP 9-18 mmol/L Anion Gap 16 LAB ALT 7-38 U/L ALT Low 6 LAB GFRAA eGFR- Amer. >60 LAB GFRNAA . eGFR-All Other Races >60 Result Comment: eGFR (Estimated GFR) Units of measure: mL/min/1.73 meters squared eGFR is derived from the reexpressed MDRD Study equation using the following parameters: serum creatinine, age, gender and race. The creatinine assay has been calibrated to be traceable to IDMS. An eGFR <60 mL/min/1.73m2 for >3 months is consistent with chronic kidney disease. Refer to KDOQI guidelines for clinical interpretation. In patients with unstable renal function, e.g. those with acute kidney injury, the eGFR may not accurately reflect actual GFR. Performed By: #### CBCDIF, CMP #### [facility] [address], [place] [id number] FACTOR VIII:C ASSAY Collected: 06/27/2017 Status: F Source: [place] 12:58 PM [facility] REPOSITORY TYPE CODE TESTS RESULT OUT OF REFERENCE UNITS RANGE LAB FVIIIC 50-173 % High Factor >184 VIII:C Assay Result Comment: The dilutional effect observed on the factor assay result is consistent with the presence of a non specific inhibitor. This can be observed with a lupus anticoagulant and some drugs, suc h as a direct thrombin inhibitor or heparin. The factor VIII clottable activity level is elevated This can be observed during the acute phase response. Persistent elevation of factor VIII, however, has been shown to be a risk factor for venous thr ombosis. Suggest rechecking the factor VIII level in 1-2 months. Performed By: #### FVIIIC, LUPUSP #### [facility] [address] [place], [place] [address] LUPUS ANTICOAG PANEL Collected: 06/27/2017 Status: F Source: [place] 12:58 PM [facility] REPOSITORY TYPE CODE TESTS RESULT OUT OF RANGE REFERENCE UNITS LAB PSEC 9.7-13.0 sec High PT Sec 27.7 LAB INR 0.9-1.3 High PT INR 2.9 Result Comment: Vitamin K Antagonist (VKA) Therapeutic Range: INR 2 to 3 (Target INR of 2.5) Note: For patients treated with VKA drugs, such as warfarin, the [place] [employer] 2012 Guideline recommends a therapeutic INR range of 2 to 3 (target INR of 2.5). This recommendation includes high-risk patients with antiphospholipid syndrome with previous arterial or venous thromboembolism, current-generation mechanical or bioprosthetic aortic heart valve replacement. Note: Patients with mechanical aortic valve replacement and additional risk factors for thromboembolic events (atrial fibrillation, previous thromboembolism, LV dysfunction, hypercoagulable conditions) or an older generation mechanical AVR (i.e., ball in-Cage) or any mechanical MVR should have a INR therapeutic range of 2.5 to 3.5 (target INR of 3). Michael PLASENCIA, et al. Chest 2012, 141:7S-47S Diogenes RA et al. [facility] 2017, 70: 252-289 LAB APTT 23.0-32.4 sec High APTT 43.3 Result Comment: Unfractionated Heparin Therapeutic Ranges: Standard Heparin Nomogram: 53 to 78 seconds (anti-Xa level of 0.3 to 0.7 U/ml) Low Dose/ACS Nomogram: 49 to 67 seconds (anti-Xa level of 0.2 to 0.5 U/ml) Stroke Treatment Nomogram: 49 to 67 seconds (anti-Xa level of 0.2 to 0.5 U/ml) Note: The APTT therapeutic range has been determined for the current lot of laboratory APTT reagent in use throughout the [facility]. LAB PLTNEU Negative Abnormal Alert Positive PNP Result Comment: Result rechecked. LAB DRVSCN 32.7-46.7 sec High DRVVT Screen 110.4 Result Comment: Result rechecked. LAB DRVRAT <1.21 High DRVVT Confirm Ratio 2.03 Result Comment: Result rechecked. LAB DRVMIX 32.7-46.7 sec High DRVVT 1:1 71.4 Mix Result Comment: Result rechecked. LAB HEXSCN 48.9-70.2 sec High Hex Phase 94.8 Screen Result Comment: Result rechecked. LAB HEXMIX 45.1-64.1 sec High Hex Phase 77.8 Confirm Result Comment: Result rechecked. LAB HEXDEL <9.0 delta sec High Hex Phase 17.0 Delta Result Comment: Result rechecked. LAB APTTSC 24.4-33.4 sec APTT Screen High 61.1 LAB IMPTT <33.5 sec Immed. PTT 1:1 Mix High 44.9 LAB 1HRPTT <37.3 sec Incub. PTT 1:1 Mix High 47.9 LAB TT <18.6 sec Thrombin Time 15.8 LAB LUPINT Interpretation (NOTE) Result Comment: Performing Pathologist: Cassandra Raymond M.D., Ph.D. Interpretation: Abnormal - see comment below. SIGNIFICANT FINDINGS: 1. Prolonged PT, c/w warfarin effect; 2. Lupus anticoagulant: Positive; 3. IgG anticardiolipin antibody: Positive; 4. IgG Beta-2 glycoprotein I antibody: Positive. 5. Elevated factor VIII Laboratory testing was performed to evaluate the presence of a lupus anticoagulant and anti-phospholipid antibodies. Both the PT/INR and APTT values were prolonged. The PT/INR is most likely elevated due to the patient's history of warfarin therapy. An elevated APTT may be seen during warfarin therapy, especially when the INR is greater than 1.5. An anti Xa assay was negative; unfractionated heparin and direct Xa inhibitor effect was not detected. A normal thrombin time (TT) makes a heparin and/or direct thrombin inhibitor effect unlikely. LUPUS ANTICOAGULANT STUDIES: This specimen meets all four ISTH criteria, including a positive screening test, a positive mixing study, demonstration of phospholipid dependence and exclusion of other coagulopathies or inhibitors. The laboratory findings are diagnostic of a lupus anticoagulant. There is no evidence for a factor VIII inhibitor. The lupus anticoagulant is a type of anti-phospholipid antibody that is considered to be a risk factor for thrombosis. Prior testing was also positive for a lupus anticoagulant. However, since the prior testing was not performed more than 12 weeks previously, this does not meet the laboratory criteria for confirmation of antiphosphlipid antibody syndrome. Suggest retesting in 12 weeks to confirm. The criteria for the diagnosis of a Lupus Anticoagulant, as detailed by the Subcommittee on Lupus Anticoagulants and Anti-Phospholipid Antibodies of the Scientific and Standardization Committee of the International Society on Thrombosis and Haemostasis (ISTH), are the following: (1) A prolonged phospholipid-dependent clotting test (screening test); (2) Evidence for an inhibitor (1:1 mix of patient:normal plasma); (3) Evidence that the inhibitor is phospholipid dependent and (4) Exclusion of specific inhibitors (ie, fVIII inhibitors, direct thrombin inhibitors, or heparin). Thromb. Haemost. 74:1185 (1995). ANTIPHOSPHOLIPID ANTIBODY STUDIES: The IgG anticardiolipin antibody titer was positive. The presence of an IgG anticardiolipin antibody (a type of antiphospholipid antibody) has been shown to be a risk factor for both venous and arterial thrombosis. Prior testing was also positive for an anticardiolipin antibody. Since the prior testing was performed more than 12 weeks previously, this may be indicative of the anti-phospholipid antibody syndrome, if observed in the correct clinical setting. The IgG Beta-2 Glycoprotein I antibody titer was positive. The presence of an IgG Beta-2 Glycoprotein I antibody (a type of antiphospholipid antibody) has been shown to be a risk factor for both venous and arterial thrombosis. Prior testing was also positive for an anti-beta-2 glycoprotein I antibody. Since the prior testing was performed more than 12 weeks previously, this may be indicative of the anti-phospholipid antibody syndrome, if observed in the correct clinical setting. Antiphospholipid antibody syndrome (APS) is present if at least one clinical criteria and one laboratory criteria are met. The clinical criteria for APS include the presence of vascular thrombosis or morbidity. The laboratory criteria for APS include positive testing for one of the following on two or more occasions, at least 12 weeks apart: (1) lupus anticoagulant ; (2) anticardiolipin IgG or IgM in medium or high titer (>40 GPL or >40 MPL) ; (3) anti- beta 2 glycoprotein I IgG or IgM antibody. J. Thromb Haemost 4:295 (2006). PROTEIN STUDIES: The factor VIII clottable activity level is elevated. This can be observed during the acute phase response. Persistent elevation of factor VIII, however, has been shown to be a risk factor for venous thrombosis. Suggest rechecking the factor VIII level in 1-2 months. THE FOLLOWING TESTS WERE ADDED AND ARE REPORTED SEPARATELY: VIII LAB CARDG 0-9 GPL IgG Cardiolipin High Ab. 113 Result Comment: <10 GPL Negative 10-40 GPL Equivocal >40 GPL Positive The following results were obtained with the VisuuA Lite JOESPH IgG III JESSICA. Cardiolipin IgG values obtained with the different manufacturers' assay methods may not be used interchangeably. The mag nitude of the reported IgG levels cannot be correlated to an endpoint titer. LAB CARDM 0-11 MPL IgM Cardiolipin Ab. 9 Result Comment: <12 MPL Negative 12-40 MPL Equivocal >40 MPL Positive The following results were obtained with the Inova QUANTA Lite JOESPH IgM III JESSICA. Cardiolipin IgM values obtained with different manufacturers' assay methods may not be used interchangeably. The magnitu de of the reported IgM levels cannot be correlated to an endpoint titer. LAB CARDA 0-11 APL IgA Cardiolipin Ab. <9 Result Comment: <12 APL Negative 12-40 APL Equivocal >40 APL Positive The following results were obtained with an Inova QUANTA Lite JOESPH IgA III JESSICA. Cardiolipin IgA values obtained with different manufacturers' assay methods may not be used interchangeably. The magnitud e of the reported IgA levels cannot be correclated to an endpoint titer. LAB B2GPG <20 SGU High Beta2 Glycoprot IgG >150 Result Comment: < 20 SGU Negative 20-80 SGU Low Positive > 80 SGU High Positive These results were obtained with the Inova QUANTA Lite B2 GPI IgG JESSICA. B2 GPI IgG values obtained with different manufacturers' assay methods may not be used interchangeably. The magnitude of the repo rted IgG levels cannot be correlated to an endpoint titer. LAB B2GPM <20 SMU Beta2 Glycoprot IgM 12 Result Comment: < 20 SMU Negative 20-80 SMU Low Positive > 80 SMU High Positive These results were obtained with the Inova QUANTA Lite B2 GPI IgM JESSICA. B2 GPI IgM values obtained with different manufacturers' assay methods may not be used interchangeably. The magnitude of the repo rted IgM levels cannot be correlated to an endpoint titer. Performed By: #### FVIIIC, LUPUSP #### [facility] [address] [id number] CNOVSP Observed: 06/27/2017 Status: COMPLETED Source: [place] 12:30 PM [facility] REPOSITORY Visit (SP) Office (HPACMN) PALOMA MARTINEZ ([id number]) 1990 F [facility] Date Time Provider Department 06/27/17 12:30 PM [facility] During your visit today, we recorded the following information about you: Weight 106.6 kg Lisseth Claudio MD, MD 06/27/2017 4:56 PM Signed APHERESIS THERAPEUTIC PLASMAPHERESIS PATIENT NAME: Paloma Cannon : 1990 AGE:[age] year old Gender: female Treatment #: [id number] Diagnosis: Anti-phospholipid antibody syndrome Primary Service/Physician: Hematology: Dr. Bessy Andujar Treatment performed at Apheresis Unit ([facility]). Patient arrived by chair. Patient identifier(s): Patient name Paloma Cannon, Date of - 1990. Procedure start time: 1212 ROS: fever: none, chills: none, breathing unlabored, no cough, no chest pains, no swelling in hands, no ankle swelling, general energy good, urine output Good. PE: Patient alert and oriented. Catheter site dressing: Intact and Clean; Dressing changed X2 Catheter site dry and no drainage; catheter tunnel non tender. Lungs: clear to auscultation, respirations normal, no oxygen, heart regular rhythm, peripheral edema none in hands or feet. Is the patient having any pain? No 0 on a scale of [address]Mc Cisneros here to see patient. Lab drawn at start: CBC, CMP and Lupus Anticoag PL Access: left, indwelling, IJ and red port Return: blue port Medications given: See [facility] audit report. Volume treated: 7027 ml whole blood Volume removed: 4495 ml plasma Volume replaced: 1000 ml NSS , 1000 ml 5% Albumin and 1556 ml FFP ACD used ml. 10% calcium gluconate 30 ml. Net fluid balance: 14 ml Upon completion of treatment: Flushed All with 10 ml NSS and 3 ml 4% Sodium Citrate. Vital signs: temp 98.3, pulse 92, BP 132/75, Resp 18/min Procedure end time: 1444 Patient tolerated well. Voiced no complaints. Patient discharged per wheelchair to home. Next treatment: 07/11/17 Patient instructed to continue abundant oral fluids. Signed by: Carmita Verdin RN DR. FRED STONE, SR. HOSPITAL STAFF PHYSICIAN NOTE OF PERSONAL INVOLVEMENT IN CARE Ms. Cannon tolerated the treatment without complaints. She is starting cytoxan after she gets insurance authorization. Her next plasma exchange will be in 2 weeks. Plan discussed with the patient and her . I reviewed the patients labs, medications and allergies prior to proceeding with this therapeutic treatment and discussed the case and parameters with the apheresis nurse. I have reviewed this therapeutic progress note documented by the apheresis nurse. I personally participated in all pertinent aspects and fernandes components of the therapeutic treatment. I was present during the treatment. Signature: Lisseth Claudio MD June 27, 2017 4:55 PM Pager: [phone] Referring Provider: LISSETH CLAUDIO [[id number]] Allergies As of Date: 06/27/2017 Noted Allergy Reaction RHUBARB 10/24/2013 2 - Rash 4 - Hives HEPARIN 10/24/2013 14 - Other: See Comments Comments: Per patient history of HIT - was on angiomax however then took l fondaparinux for bridging to coumadin. IV CONTRAST (IODINE) 2016 14 - Other: See Comments Comments: shuts kidneys down per patient RITUXIMAB 11/09/2016 14 - Other: See Comments Comments: Elevated cardiac enzymes Date Reviewed: 06/27/2017 Reviewed by: Carmita (Rn) JEFF Verdin - Fully Assessed Reason for Visit: Plasmapheresis [1323] Primary Visit Diagnosis:APS (antiphospholipid syndrome) ([facility]) [D68.61] Order(s):LUPUS ANTICOAG PL [SQLUPUSP] Order #: [id number]. #:[id number] CBC + DIFF [SQCBCDIF] Order #: [id number]. #:[id number] COMP METABOLIC PANEL [SQCMP] Order #: [id number]. #:[id number] [facility] [[id number]] Order #: [id number]: 1 TREATMENT PARAMETERS [[id number]] Order #: [id number]: 1 [facility] NURSING COMMUNICATION [[id number]] Order #: [id number]: 1 STANDING [] diphenhydrAMINE 50 mg injection (BENADRYL)Disp: Rfl: [] hydrocortisone sodium succinate (PF) 100 mg injection (Solu-CORTEF)Disp: Rfl: [] calcium gluconate 3 g in NaCl 0.9% 1,000 mLDisp: Rfl: [] albumin (5%) 50 g infusionDisp: Rfl: citrate dextrose solution (ACD-A) infusionDisp: Rfl: 0.9% NaCl 10-20 mLDisp: Rfl: sodium citrate 4% 3-6 mL catheter lockDisp: Rfl: Prescriptions as of 06/27/2017 Sig: CYCLOPHOSPHAMIDE 50 MG CAPSULE Take by mouth daily. 2 caps -* PREDNISONE 5 MG TABLET Take by mouth daily. 20 mg - * SULFAMETHOXAZOLE 800 MG-TRIME* Take 1 tablet by mouth every * CARVEDILOL 25 MG TABLET Take 1 tablet by mouth twice * HYDRALAZINE 100 MG TABLET Take 1 tablet by mouth every * AMLODIPINE 5 MG TABLET Take 1 tablet by mouth once d* TORSEMIDE 20 MG TABLET Take 2 tablets by mouth once * FENTANYL 25 MCG/HR TRANSDERMA* Apply 1 Patch as directed elaine* GABAPENTIN 300 MG CAPSULE Please take gabapentin 200 mg* Patient taking differently: 300 mg three times daily. FLUTICASONE 50 MCG/ACTUATION * Use 1 [place] in each nostril o* WARFARIN 5 MG TABLET take by mouth as directed in * Patient taking differently: Take 5 mg by mouth once daily* PANTOPRAZOLE 40 MG TABLET,DEL* Take 1 tablet by mouth DAILY * ISOSORBIDE MONONITRATE ER 30 * Take 2 tablets by mouth once * MISCELLANEOUS MEDICAL SUPPLY * 1 package 30 - 40 mmHg pressu* CETIRIZINE 10 MG TABLET Take 1 tablet by mouth once d* Patient taking differently: Take 10 mg by mouth twice lis* SENNOSIDES 8.6 MG TABLET Take 1 tablet by mouth twice * More... More... Problem List As Of Date 06/27/2017 Noted Resolved Catastrophic Antiphospholipid antibody syndrome*INVALID FOR*01/24/2017 Priority: C More... 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 Severe Gastritis [K29.70] INVALID FOR*01/11/2017 Priority: F More... More... More... More... More... Anasarca [R60.1] INVALID FOR*01/24/2017 Priority: E More... More... More... More... More... More... 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 More... More... More... More... More... More... More... More... Hx pulmonary embolism [Z86.711] INVALID FOR*01/11/2017 Priority: C More... H/O deep vein thrombophlebitis of lower extremi*INVALID FOR*03/12/2015 Priority: C More... More... More... More... More... More... Hemoptysis [R04.2] INVALID FOR*12/27/2016 More... Elevated troponin [R74.8] INVALID FOR*01/11/2017 Anemia [D64.9] INVALID FOR* Priority: C More... Thrombocytopenia (HCC) [D69.6] INVALID FOR*01/11/2017 More... SUMMARY INVALID FOR*01/24/2017 Priority: A More... SIRS (systemic inflammatory response syndrome) *INVALID FOR*04/15/2015 Priority: D More... DVT (deep venous thrombosis) ([facility]) [I82.409] INVALID FOR*01/11/2017 Priority: D More... Iron deficiency anemia [D50.9] INVALID FOR*01/11/2017 Priority: F More... Productive cough, hemoptysis [R04.2] INVALID FOR*01/04/2017 Priority: B Community acquired pneumonia [J18.9] INVALID FOR*01/11/2017 Respiratory failure with hypoxia ([facility]) [J96.91] INVALID FOR*01/11/2017 Priority: B More... SOB (shortness of breath) [R06.02] INVALID FOR*12/28/2016 HTN (hypertension) [I10] INVALID FOR* Priority: E More... CAPRICE (acute kidney injury) ([facility]) [N17.9] INVALID FOR* Priority: B More... 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 Hx of gastritis [Z87.19] INVALID FOR*01/11/2017 More... Nausea and vomiting [R11.2] INVALID FOR*04/28/2017 Priority: B More... 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 Anemia associated with acute blood loss [D62] INVALID FOR*01/11/2017 More... More... Acute on chronic respiratory failure with hypox*INVALID FOR* Priority: A More... Abdominal pain [R10.9] INVALID FOR* Priority: E More... Vomiting [R11.10] INVALID FOR*01/04/2017 Antiphospholipid syndrome (HCC) [D68.61] INVALID FOR*01/04/2017 Severe protein-calorie malnutrition (HCC) [E43] INVALID FOR*03/12/2017 Priority: B Hypoxia [R09.02] INVALID FOR*01/11/2017 Acute hypoxemic respiratory failure (HCC) [J96.*INVALID FOR*12/28/2016 More... Personal history of DVT (deep vein thrombosis) *INVALID FOR*01/11/2017 More... History of heparin-induced thrombocytopenia [Z8*INVALID FOR* Priority: C More... Hospital-acquired pneumonia [J18.9] INVALID FOR*12/28/2016 Priority: B More... Hypoxemia [R09.02] INVALID FOR*01/11/2017 (HFpEF) heart failure with preserved ejection f*INVALID FOR* Priority: C More... Headache [R51] INVALID FOR*01/18/2017 Priority: I More... More... Peripheral neuropathy (HCC) [G62.9] INVALID FOR* Priority: G Joint pain [M25.50] INVALID FOR*01/11/2017 More... Diffuse arthralgia [M25.50] INVALID FOR*01/11/2017 Priority: C More... CKD (chronic kidney disease) stage 3, GFR 30-59*INVALID FOR* Priority: C More... Obesity, Class III, BMI >= 40 (morbid obesity) *INVALID FOR* Priority: F Hypertensive emergency [I16.1] INVALID FOR*12/05/2016 More... Acute on chronic diastolic congestive heart ena*INVALID FOR*01/11/2017 More... APS (antiphospholipid syndrome) (HCC) [D68.61] INVALID FOR* Priority: C More... Elevated troponin level [R74.8] INVALID FOR*12/05/2016 More... Hypertensive urgency [I16.0] INVALID FOR*12/05/2016 PNA (pneumonia) [J18.9] INVALID FOR*12/27/2016 Acute respiratory failure with hypoxia (HCC) [J*INVALID FOR*12/27/2016 Clostridium difficile colitis [A04.72] INVALID FOR*12/28/2016 Hemoptysis [R04.2] INVALID FOR*01/20/2017 More... More... Supratherapeutic INR [R79.1] INVALID FOR*04/28/2017 Priority: B More... Cholelithiasis [K80.20] INVALID FOR*01/24/2017 Priority: B More... Ecchymosis of right eye [S05.11XA] INVALID FOR*01/18/2017 Priority: H More... Anticoagulation management encounter [Z51.81, Z*INVALID FOR* Priority: D Acute respiratory failure (HCC) [J96.00] INVALID FOR*02/10/2017 Priority: A More... Pulmonary HTN (HCC) [I27.20] INVALID FOR* Priority: F More... GERD (gastroesophageal reflux disease) [K21.9] INVALID FOR* Priority: E More... RUQ abdominal pain [R10.11] INVALID FOR* Priority: E More... Hemoptysis [R04.2] INVALID FOR*03/11/2017 More... Diarrhea [R19.7] INVALID FOR* Priority: E More... Bacteremia [R78.81] INVALID FOR* Priority: B More... 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 Edema [R60.9] INVALID FOR* Priority: A More... Flu-like symptoms [R68.89] INVALID FOR*06/10/2017 Hypercoagulable state (HCC) [D68.59] INVALID FOR* Priority: B More... Healthcare maintenance [Z00.00] INVALID FOR* More... Iron deficiency anemia secondary to inadequate *INVALID FOR* Priority: D More... Encounter Status:Closed by LISSETH CLAUDIO MD on 06/27/17 CNOVSP Observed: 06/27/2017 Status: COMPLETED Source: [place] 12:30 PM [facility] REPOSITORY Visit (SP) Office (HEMAMN) PALOMA MARTINEZ ([id number]) 1990 F PTR Date Time Provider Department 06/27/17 12:30 PM KEM ANDUJAR HEMAMN During your visit today, we recorded the following information about you: Orin Lares, RN, RN 07/13/2017 10:16 AM Signed Established Patient Paloma Cannon June 27, 2017 ? HPI Paloma Cannon was seen today in apheresis for her catastrophic antiphospholipid syndrome. She continues to receive plasma exchange, which is now being performed every 2 weeks to attempt to lower?her antiphospholipid antibody level. When last checked on 05/30 her APL levels were still quite high. However, she has felt generally well. She was seen yesterday by Dr Alicea who recommended a course of oral cyclophosphamide for her pulmonary hemorrhage. Current Outpatient Prescriptions on File Prior to Visit: cyclophosphamide (CYTOXAN) 50 mg capsule Take by mouth daily. 2 caps - 7 days; 3 caps- 7 days; 4 caps daily thereafter predniSONE (DELTASONE) 5 mg tablet Take by mouth daily. 20 mg - Jun; 15 mg - Jul; 10 mg - Aug; 5 mg - Sep onwards sulfamethoxazole-trimethoprim (BACTRIM DS) 800-160 mg per tablet Take 1 tablet by mouth every Monday,Monday,Monday. carvedilol (COREG) 25 mg tablet Take 1 tablet by mouth twice daily with meals. HOLD FOR SBP ANDlt;110 AND HR ANDlt;60 hydrALAZINE (APRESOLINE) 100 mg tablet Take 1 tablet by mouth every 8 hours. HOLD FOR SBP ANDlt;110 amLODIPine (NORVASC) 5 mg tablet Take 1 tablet by mouth once daily. HOLD FOR SBP ANDlt;120 torsemide (DEMADEX) 20 mg tablet Take 2 tablets by mouth once daily. fentaNYL (DURAGESIC) 25 mcg/hr Apply 1 Patch as directed every 72 hours. gabapentin (NEURONTIN) 300 mg capsule Please take gabapentin 200 mg three times daily for 3 days.If you tolerate it, increase to 300 mg three times a day for 3 days.If you tolerate it, increase to 600 mg at bedtime and 300 mg daytime for 3 days.If you tolerate it, increase to 600 mg three times a day for 3 days.If you tolerate it, increase to 900 mg at bedtime and 600 mg daytime for 3 days.If you tolerate it, increase to 900 mg three times a day for 3 days. (Patient taking differently: 300 mg three times daily.) fluticasone (FLONASE) 50 mcg/actuation nasal spray Use 1 [place] in each nostril once daily. warfarin (COUMADIN) 5 mg tablet take by mouth as directed in the evening to keep INR between 2.0-3.0 (Patient taking differently: Take 5 mg by mouth once daily. take by mouth as directed in the evening to keep INR between 2.0-3.0 Apheresis weeks takes 7.5 mg x3 days and holds 2-3 days prior to apheresis.) pantoprazole DR (PROTONIX) 40 mg tablet Take 1 tablet by mouth DAILY (6 AM). isosorbide mononitrate ER (IMDUR) 30 mg 24 hr tablet Take 2 tablets by mouth once daily. Please hold if your blood pressure is less than 120/80. Miscellaneous Medical Supply [facility] 1 package 30 - 40 mmHg pressure panty hose compression stockings. cetirizine 10 mg tablet Take 1 tablet by mouth once daily. (Patient taking differently: Take 10 mg by mouth twice daily.) senna 8.6 mg tab Take 1 tablet by mouth twice daily as needed. PHYSICAL EXAMINATION: General appearance: Well appearing, alert, in no acute distress, well-hydrated, well nourished., Overweight Skin: Skin color, texture, turgor normal, no suspicious rashes or lesions Head: Normocephalic, no masses, lesions, tenderness or abnormalities Eyes: Anicteric sclera. Pupils are equally round and reactive to light. Extraocular movements are intact. Ears: External ears normal, canals clear, Not examined Nose/Sinuses: Not examined Oropharynx: Lips, mucosa, and tongue normal, teeth and gums normal, oropharynx normal Neck: Supple, no adenopathy; thyroid symmetric, normal size, no bruits Back: Normal exam, not examined Lungs: Lungs clear to auscultation. Some crackles with inspiration Heart: RRR without murmur, gallop, or rubs. No ectopy Abdomen: Normal abdominal exam, Abdomen soft, non-tender. Bowel sounds normal. No masses, organomegaly Extremities: No deformities, edema, skin discoloration, clubbing or cyanosis. Musculoskeletal: No joint swelling, deformity, or tenderness Peripheral pulses: Not examined Neuro: Gait normal. Reflexes normal and symmetric. Sensation grossly intact. No lab today. Will repeat LAC panel with next plasma exchange Impression: stable APS. To start CTX for pulmonary hemorrhage. I will continue to see her in apheresis. Otherwise no changes. Kem nAdujar MD June 27, 2017 2:42 PM Referring Provider: KEM ANDUJAR [[id number]] Allergies As of Date: 06/27/2017 Noted Allergy Reaction RHUBARB 10/24/2013 2 - Rash 4 - Hives HEPARIN 10/24/2013 14 - Other: See Comments Comments: Per patient history of HIT - was on angiomax however then took l fondaparinux for bridging to coumadin. IV CONTRAST (IODINE) 2016 14 - Other: See Comments Comments: shuts kidneys down per patient RITUXIMAB 11/09/2016 14 - Other: See Comments Comments: Elevated cardiac enzymes Date Reviewed: 06/27/2017 Reviewed by: Carmita (Jeff) JEFF Verdin - Fully Assessed Primary Visit Diagnosis:APS (antiphospholipid syndrome) (HCC) [D68.61] Order(s):LUPUS ANTICOAG PL [SQLUPUSP] Order #: [id number] FUTURE Disposition: Return in about 1 month (around 07/28/2017). Follow-up and Disposition History Recorded Prescriptions as of 06/27/2017 Sig: PREDNISONE 5 MG TABLET Take by mouth daily. 20 mg - * SULFAMETHOXAZOLE 800 MG-TRIME* Take 1 tablet by mouth every * X CYCLOPHOSPHAMIDE 50 MG CAPSULE Take by mouth daily. 2 caps -* CARVEDILOL 25 MG TABLET Take 1 tablet by mouth twice * HYDRALAZINE 100 MG TABLET Take 1 tablet by mouth every * AMLODIPINE 5 MG TABLET Take 1 tablet by mouth once d* TORSEMIDE 20 MG TABLET Take 2 tablets by mouth once * FENTANYL 25 MCG/HR TRANSDERMA* Apply 1 Patch as directed elaine* GABAPENTIN 300 MG CAPSULE Please take gabapentin 200 mg* Patient taking differently: 300 mg three times daily. FLUTICASONE 50 MCG/ACTUATION * Use 1 [place] in each nostril o* WARFARIN 5 MG TABLET take by mouth as directed in * Patient taking differently: Take 5 mg by mouth once daily* PANTOPRAZOLE 40 MG TABLET,DEL* Take 1 tablet by mouth DAILY * ISOSORBIDE MONONITRATE ER 30 * Take 2 tablets by mouth once * MISCELLANEOUS MEDICAL SUPPLY * 1 package 30 - 40 mmHg pressu* CETIRIZINE 10 MG TABLET Take 1 tablet by mouth once d* Patient taking differently: Take 10 mg by mouth twice lis* SENNOSIDES 8.6 MG TABLET Take 1 tablet by mouth twice * More... More... Problem List As Of Date 06/27/2017 Noted Resolved Catastrophic Antiphospholipid antibody syndrome*INVALID FOR*01/24/2017 Priority: C More... 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 Severe Gastritis [K29.70] INVALID FOR*01/11/2017 Priority: F More... More... More... More... More... Anasarca [R60.1] INVALID FOR*01/24/2017 Priority: E More... More... More... More... More... More... 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 More... More... More... More... More... More... More... More... Hx pulmonary embolism [Z86.711] INVALID FOR*01/11/2017 Priority: C More... H/O deep vein thrombophlebitis of lower extremi*INVALID FOR*03/12/2015 Priority: C More... More... More... More... More... More... Hemoptysis [R04.2] INVALID FOR*12/27/2016 More... Elevated troponin [R74.8] INVALID FOR*01/11/2017 Anemia [D64.9] INVALID FOR* Priority: C More... Thrombocytopenia (HCC) [D69.6] INVALID FOR*01/11/2017 More... SUMMARY INVALID FOR*01/24/2017 Priority: A More... SIRS (systemic inflammatory response syndrome) *INVALID FOR*04/15/2015 Priority: D More... DVT (deep venous thrombosis) (HCC) [I82.409] INVALID FOR*01/11/2017 Priority: D More... Iron deficiency anemia [D50.9] INVALID FOR*01/11/2017 Priority: F More... Productive cough, hemoptysis [R04.2] INVALID FOR*01/04/2017 Priority: B Community acquired pneumonia [J18.9] INVALID FOR*01/11/2017 Respiratory failure with hypoxia (HCC) [J96.91] INVALID FOR*01/11/2017 Priority: B More... SOB (shortness of breath) [R06.02] INVALID FOR*12/28/2016 HTN (hypertension) [I10] INVALID FOR* Priority: E More... CAPRICE (acute kidney injury) (HCC) [N17.9] INVALID FOR* Priority: B More... 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 Hx of gastritis [Z87.19] INVALID FOR*01/11/2017 More... Nausea and vomiting [R11.2] INVALID FOR*04/28/2017 Priority: B More... 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 Anemia associated with acute blood loss [D62] INVALID FOR*01/11/2017 More... More... Acute on chronic respiratory failure with hypox*INVALID FOR* Priority: A More... Abdominal pain [R10.9] INVALID FOR* Priority: E More... Vomiting [R11.10] INVALID FOR*01/04/2017 Antiphospholipid syndrome (HCC) [D68.61] INVALID FOR*01/04/2017 Severe protein-calorie malnutrition (HCC) [E43] INVALID FOR*03/12/2017 Priority: B Hypoxia [R09.02] INVALID FOR*01/11/2017 Acute hypoxemic respiratory failure (HCC) [J96.*INVALID FOR*12/28/2016 More... Personal history of DVT (deep vein thrombosis) *INVALID FOR*01/11/2017 More... History of heparin-induced thrombocytopenia [Z8*INVALID FOR* Priority: C More... Hospital-acquired pneumonia [J18.9] INVALID FOR*12/28/2016 Priority: B More... Hypoxemia [R09.02] INVALID FOR*01/11/2017 (HFpEF) heart failure with preserved ejection f*INVALID FOR* Priority: C More... Headache [R51] INVALID FOR*01/18/2017 Priority: I More... More... Peripheral neuropathy (HCC) [G62.9] INVALID FOR* Priority: G Joint pain [M25.50] INVALID FOR*01/11/2017 More... Diffuse arthralgia [M25.50] INVALID FOR*01/11/2017 Priority: C More... CKD (chronic kidney disease) stage 3, GFR 30-59*INVALID FOR* Priority: C More... Obesity, Class III, BMI >= 40 (morbid obesity) *INVALID FOR* Priority: F Hypertensive emergency [I16.1] INVALID FOR*12/05/2016 More... Acute on chronic diastolic congestive heart ena*INVALID FOR*01/11/2017 More... APS (antiphospholipid syndrome) (HCC) [D68.61] INVALID FOR* Priority: C More... Elevated troponin level [R74.8] INVALID FOR*12/05/2016 More... Hypertensive urgency [I16.0] INVALID FOR*12/05/2016 PNA (pneumonia) [J18.9] INVALID FOR*12/27/2016 Acute respiratory failure with hypoxia (HCC) [J*INVALID FOR*12/27/2016 Clostridium difficile colitis [A04.72] INVALID FOR*12/28/2016 Hemoptysis [R04.2] INVALID FOR*01/20/2017 More... More... Supratherapeutic INR [R79.1] INVALID FOR*04/28/2017 Priority: B More... Cholelithiasis [K80.20] INVALID FOR*01/24/2017 Priority: B More... Ecchymosis of right eye [S05.11XA] INVALID FOR*01/18/2017 Priority: H More... Anticoagulation management encounter [Z51.81, Z*INVALID FOR* Priority: D Acute respiratory failure (HCC) [J96.00] INVALID FOR*02/10/2017 Priority: A More... Pulmonary HTN (HCC) [I27.20] INVALID FOR* Priority: F More... GERD (gastroesophageal reflux disease) [K21.9] INVALID FOR* Priority: E More... RUQ abdominal pain [R10.11] INVALID FOR* Priority: E More... Hemoptysis [R04.2] INVALID FOR*03/11/2017 More... Diarrhea [R19.7] INVALID FOR* Priority: E More... Bacteremia [R78.81] INVALID FOR* Priority: B More... 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 Edema [R60.9] INVALID FOR* Priority: A More... Flu-like symptoms [R68.89] INVALID FOR*06/10/2017 Hypercoagulable state (HCC) [D68.59] INVALID FOR* Priority: B More... Healthcare maintenance [Z00.00] INVALID FOR* More... Iron deficiency anemia secondary to inadequate *INVALID FOR* Priority: D More... Encounter Status:Closed by ORIN LARES on 07/13/17 HOSP Observed: 06/27/2017 Status: COMPLETED Source: [place] 12:00 AM [facility] REPOSITORY Patient Update ([facility]) NELLI CANNONPALOMA Aguilar ([id number]) 1990 F PTR Date Time Provider Department 06/27/17 ELSA MELLO (COORD) [facility] During your visit today, we recorded the following information about you: Elsa Mello, Coord 07/07/2017 1:39 PM Signed Patient had appointments today at [facility]. I provided a parking pass. 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 IV CONTRAST (IODINE) 2016 14 - Other: See Comments Comments: shuts kidneys down per patient RITUXIMAB 11/09/2016 14 - Other: See Comments Comments: Elevated cardiac enzymes Date Reviewed: 06/27/2017 Reviewed by: Carmita (Rn) JEFF Verdin - Fully Assessed Reason for Visit: Cancer Patient Support [7606] Prescriptions as of 06/27/2017 Sig: PREDNISONE 5 MG TABLET Take by mouth daily. 20 mg - * SULFAMETHOXAZOLE 800 MG-TRIME* Take 1 tablet by mouth every * X CYCLOPHOSPHAMIDE 50 MG CAPSULE Take by mouth daily. 2 caps -* CARVEDILOL 25 MG TABLET Take 1 tablet by mouth twice * HYDRALAZINE 100 MG TABLET Take 1 tablet by mouth every * AMLODIPINE 5 MG TABLET Take 1 tablet by mouth once d* TORSEMIDE 20 MG TABLET Take 2 tablets by mouth once * FENTANYL 25 MCG/HR TRANSDERMA* Apply 1 Patch as directed elaine* GABAPENTIN 300 MG CAPSULE Please take gabapentin 200 mg* Patient taking differently: 300 mg three times daily. FLUTICASONE 50 MCG/ACTUATION * Use 1 [place] in each nostril o* WARFARIN 5 MG TABLET take by mouth as directed in * Patient taking differently: Take 5 mg by mouth once daily* PANTOPRAZOLE 40 MG TABLET,DEL* Take 1 tablet by mouth DAILY * ISOSORBIDE MONONITRATE ER 30 * Take 2 tablets by mouth once * MISCELLANEOUS MEDICAL SUPPLY * 1 package 30 - 40 mmHg pressu* CETIRIZINE 10 MG TABLET Take 1 tablet by mouth once d* Patient taking differently: Take 10 mg by mouth twice lis* SENNOSIDES 8.6 MG TABLET Take 1 tablet by mouth twice * More... More... Problem List As Of Date 06/27/2017 Noted Resolved Catastrophic Antiphospholipid antibody syndrome*INVALID FOR*01/24/2017 Priority: C More... 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 Severe Gastritis [K29.70] INVALID FOR*01/11/2017 Priority: F More... More... More... More... More... Anasarca [R60.1] INVALID FOR*01/24/2017 Priority: E More... More... More... More... More... More... 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 More... More... More... More... More... More... More... More... Hx pulmonary embolism [Z86.711] INVALID FOR*01/11/2017 Priority: C More... H/O deep vein thrombophlebitis of lower extremi*INVALID FOR*03/12/2015 Priority: C More... More... More... More... More... More... Hemoptysis [R04.2] INVALID FOR*12/27/2016 More... Elevated troponin [R74.8] INVALID FOR*01/11/2017 Anemia [D64.9] INVALID FOR* Priority: C More... Thrombocytopenia (HCC) [D69.6] INVALID FOR*01/11/2017 More... SUMMARY INVALID FOR*01/24/2017 Priority: A More... SIRS (systemic inflammatory response syndrome) *INVALID FOR*04/15/2015 Priority: D More... DVT (deep venous thrombosis) (HCC) [I82.409] INVALID FOR*01/11/2017 Priority: D More... Iron deficiency anemia [D50.9] INVALID FOR*01/11/2017 Priority: F More... Productive cough, hemoptysis [R04.2] INVALID FOR*01/04/2017 Priority: B Community acquired pneumonia [J18.9] INVALID FOR*01/11/2017 Respiratory failure with hypoxia (HCC) [J96.91] INVALID FOR*01/11/2017 Priority: B More... SOB (shortness of breath) [R06.02] INVALID FOR*12/28/2016 HTN (hypertension) [I10] INVALID FOR* Priority: E More... CAPRICE (acute kidney injury) (HCC) [N17.9] INVALID FOR* Priority: B More... 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 Hx of gastritis [Z87.19] INVALID FOR*01/11/2017 More... Nausea and vomiting [R11.2] INVALID FOR*04/28/2017 Priority: B More... 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 Anemia associated with acute blood loss [D62] INVALID FOR*01/11/2017 More... More... Acute on chronic respiratory failure with hypox*INVALID FOR* Priority: A More... Abdominal pain [R10.9] INVALID FOR* Priority: E More... Vomiting [R11.10] INVALID FOR*01/04/2017 Antiphospholipid syndrome (HCC) [D68.61] INVALID FOR*01/04/2017 Severe protein-calorie malnutrition (HCC) [E43] INVALID FOR*03/12/2017 Priority: B Hypoxia [R09.02] INVALID FOR*01/11/2017 Acute hypoxemic respiratory failure (HCC) [J96.*INVALID FOR*12/28/2016 More... Personal history of DVT (deep vein thrombosis) *INVALID FOR*01/11/2017 More... History of heparin-induced thrombocytopenia [Z8*INVALID FOR* Priority: C More... Hospital-acquired pneumonia [J18.9] INVALID FOR*12/28/2016 Priority: B More... Hypoxemia [R09.02] INVALID FOR*01/11/2017 (HFpEF) heart failure with preserved ejection f*INVALID FOR* Priority: C More... Headache [R51] INVALID FOR*01/18/2017 Priority: I More... More... Peripheral neuropathy (HCC) [G62.9] INVALID FOR* Priority: G Joint pain [M25.50] INVALID FOR*01/11/2017 More... Diffuse arthralgia [M25.50] INVALID FOR*01/11/2017 Priority: C More... CKD (chronic kidney disease) stage 3, GFR 30-59*INVALID FOR* Priority: C More... Obesity, Class III, BMI >= 40 (morbid obesity) *INVALID FOR* Priority: F Hypertensive emergency [I16.1] INVALID FOR*12/05/2016 More... Acute on chronic diastolic congestive heart ena*INVALID FOR*01/11/2017 More... APS (antiphospholipid syndrome) (HCC) [D68.61] INVALID FOR* Priority: C More... Elevated troponin level [R74.8] INVALID FOR*12/05/2016 More... Hypertensive urgency [I16.0] INVALID FOR*12/05/2016 PNA (pneumonia) [J18.9] INVALID FOR*12/27/2016 Acute respiratory failure with hypoxia (HCC) [J*INVALID FOR*12/27/2016 Clostridium difficile colitis [A04.72] INVALID FOR*12/28/2016 Hemoptysis [R04.2] INVALID FOR*01/20/2017 More... More... Supratherapeutic INR [R79.1] INVALID FOR*04/28/2017 Priority: B More... Cholelithiasis [K80.20] INVALID FOR*01/24/2017 Priority: B More... Ecchymosis of right eye [S05.11XA] INVALID FOR*01/18/2017 Priority: H More... Anticoagulation management encounter [Z51.81, Z*INVALID FOR* Priority: D Acute respiratory failure (HCC) [J96.00] INVALID FOR*02/10/2017 Priority: A More... Pulmonary HTN (HCC) [I27.20] INVALID FOR* Priority: F More... GERD (gastroesophageal reflux disease) [K21.9] INVALID FOR* Priority: E More... RUQ abdominal pain [R10.11] INVALID FOR* Priority: E More... Hemoptysis [R04.2] INVALID FOR*03/11/2017 More... Diarrhea [R19.7] INVALID FOR* Priority: E More... Bacteremia [R78.81] INVALID FOR* Priority: B More... 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 Edema [R60.9] INVALID FOR* Priority: A More... Flu-like symptoms [R68.89] INVALID FOR*06/10/2017 Hypercoagulable state (HCC) [D68.59] INVALID FOR* Priority: B More... Healthcare maintenance [Z00.00] INVALID FOR* More... Iron deficiency anemia secondary to inadequate *INVALID FOR* Priority: D More... Encounter Status:Closed by ELSA MELLO on 07/07/17 ALLERGIES ALLERGIES DATE TYPE / CODE NAME / CODE REACTION SEVERITY SOURCE 06/10/2018 Drug Iodinated Contrast- renal failure Unknown [place] Allergy/416 Oral and IV Community 681929([facility] Dye/[id number]([facility] ED CT) RM) Repository 06/10/2018 Drug Gadolinium-MRI renal failure Unknown [place] Allergy/416 Contrast Community 033859(SN Medium/[id number]([facility] ED CT) XNORM) Repository 06/10/2018 Drug rhubarb/[id number]( Hives Unknown [place] Allergy/416 RXNORM) Community 832928([facility] ED CT) Repository 06/10/2018 Drug rituximab/[id number] Other Unknown [place] Allergy/416 6(RXNORM) Community 113260([facility] ED CT) Repository 06/10/2018 Drug heparin/[id number]( HIT Unknown [place] Allergy/416 RXNORM) Community 353150([facility] ED CT) Repository 11/14/2017 DRUG CHLORHEXIDINE RASH [facility] INGREDI419 Main [place] 116576(SNOM Repository ED CT) 11/09/2016 DRUG [facility]IMAB [facility] [place] 801297(SNOM Repository ED CT) 2016 DRUG IODINE OTHER: SEE [place] [address] Main [place] 245328(SNOM Repository ED CT) 10/24/2013 DRUG RHUBARB RASH [place] [address] Main [place] 137211(SNOM Repository ED CT) 10/24/2013 DRUG HEPARIN OTHER: SEE [place] [address] Main [place] 317693(SNOM Repository ED CT) ENCOUNTERS ENCOUNTERS ADMIT/DISCHARGE ACCOUNT ADMITTING ENCOUNTER LOCATION SOURCE NUMBER CLASS 06/25/2018/ [id number] Inpatient [address] Main [place] Repository 06/22/2018 [id number] ESTELA HULL Inpatient [facility] Main [place] Repository 06/22/2018 [id number] Ambulatory [facility] ding:MEDOUTP Repository 06/19/2018/ [id number] Emergency [address] ding:ED Repository 06/18/2018 [id number] Ambulatory [facility] ding:MEDOUTP Repository 06/15/2018 [id number] Ambulatory [facility] ding:MEDOUTP Repository 06/14/2018/ [id number] Emergency [address] Main [place] Repository 06/12/2018/ [id number] Ambulatory [address] Main [place] Repository 06/11/2018/ [id number] Ambulatory [address] Main [place] Repository 06/10/2018/ [id number] Emergency [address] ding:ED Repository 06/08/2018 [id number] Ambulatory [facility] ding:MEDOUTP Repository 06/05/2018/ [id number] WILLARD MARTÍNEZ Inpatient [place] [facility] Main [place] Repository 06/04/2018/ [id number] [facility] ding[facility] Repository 06/04/2018 [id number] Ambulatory [facility] ding:MEDOUTP Repository 05/28/2018/ [id number] Ambulatory [place] 018 Clinic Main [place] Repository 05/18/2018 [id number] Ambulatory [facility] ding:MEDOUTP Repository 05/14/2018/ [id number] ESTELA HULL Inpatient [place] 018 Encounter Clinic [facility] [place] Repository 05/14/2018/ [id number] Ambulatory [place] 018 Clinic [facility] [place] Repository 05/11/2018/ [id number] Ambulatory [place] [facility]18 Clinic [facility] [place] Repository 05/11/2018 [id number] Ambulatory [facility] ding:MEDOUTP Repository 05/08/2018/ [id number] Ambulatory [place] [facility]18 Clinic [facility] [place] Repository 05/06/2018/ [id number] Emergency [place] 018 Clinic [facility] [place] Repository 05/06/2018/ [id number] Emergency [place] [facility]18 Clinic [facility] [place] Repository 05/04/2018 [id number] Ambulatory [facility] ding:MEDOUTP Repository 05/01/2018/ [id number] Inpatient [place] 018 Encounter Clinic [facility] [place] Repository 04/28/2018/ [id number] BIRD BRADSHAW Inpatient [place] 018 Encounter Clinic [facility] [place] Repository 04/27/2018 [id number] Ambulatory [facility] ding:MEDOUTP Repository 04/24/2018/2 [id number] Emergency [place] [facility]18 [facility] ding:ED Repository 04/24/2018/ [id number] Ambulatory [facility]: [place] 018 [facility] Repository 04/23/2018 [id number] Ambulatory [facility] ding:MEDOUTP Repository 04/20/2018 [id number] Ambulatory [facility] ding:MEDOUTP Repository 04/18/2018/ [id number] Ambulatory [place] [facility]18 Clinic [facility] [place] Repository 04/16/2018/ [id number] Ambulatory [place] [facility]18 [facility] [place] Repository 04/12/2018 [id number] Ambulatory [facility] ding:MEDOUTP Repository 04/09/2018 [id number] Ambulatory [facility] ding:MEDOUTP Repository 04/05/2018 [id number] Ambulatory [facility] ding:MEDOUTP Repository 03/19/2018/ [id number] Ambulatory [place] [facility]18 Clinic [facility] [place] Repository 03/14/2018/ [id number] Ambulatory [place] [facility]18 [facility] [place] Repository 03/05/2018/ [id number] Inpatient [place] [facility]18 Encounter Clinic [facility] [place] Repository 02/19/2018/ [id number] Inpatient [place] 018 Encounter Clinic [facility] [place] Repository 02/13/2018/ [id number] Ambulatory [place] [facility]18 Clinic [facility] [place] Repository 02/09/2018 [id number] Ambulatory [facility] Hospital ding:MEDOUTP Repository 02/06/2018/ [id number] Inpatient [place] 018 Encounter Clinic [place] Repository 02/03/2018/ [id number] Ambulatory [place] [facility]18 Clinic [facility] [place] Repository 02/03/2018 [id number] [facility]ulatory [facility] [place] Repository 02/02/2018 [id number] Ambulatory [facility] Hospital ding:MEDOUTP Repository 01/29/2018/ [id number] Ambulatory [place] [facility]18 Clinic [facility] [place] Repository 01/29/2018 [id number] Inpatient [place] [facility] [place] Repository 01/26/2018 [id number] Ambulatory [facility] ding:MEDOUTP Repository 01/24/2018/ [id number] Inpatient [place] 018 Encounter Clinic [facility] [place] Repository 01/23/2018/ [id number] Ambulatory [place] [facility]18 Clinic [facility] [place] Repository 01/22/2018/ [id number] KWESI MANRIQUEZ Inpatient [place] 018 Encounter Clinic [facility] [place] Repository 01/22/2018/ [id number] Ambulatory [place] [facility]18 Clinic [facility] [place] Repository 01/22/2018/ [id number] Ambulatory [place] [facility]18 Clinic [facility] [place] Repository 01/22/2018/ [id number] Ambulatory [place] [facility]18 [facility] [place] Repository 01/22/2018/ [id number] Ambulatory [place] [facility]18 Clinic [facility] [place] Repository 01/22/2018/ [id number] Ambulatory [place] [facility]18 Clinic [facility] [place] Repository 01/19/2018 [id number] Ambulatory [facility] Hospital ding:MEDOUTP Repository 01/12/2018 [id number] Ambulatory [facility] Hospital ding:MEDOUTP Repository 01/08/2018/ [id number] Ambulatory [place] [facility] [place] Repository 01/08/2018/ [id number] Ambulatory [place] [facility] [place] Repository 01/05/2018 [id number] Ambulatory [facility] Hospital ding:MEDOUTP Repository 01/05/2018 [id number] Ambulatory [facility] Hospital ding:MEDOUTP Repository 01/02/2018 [id number] Ambulatory [facility] Hospital ding:MEDOUTP Repository 01/01/2018/2 [id number] Ambulatory [place] [facility] [place] Repository 12/29/2017 [id number] [facility] Rep[facility] 12/25/2017/ [id number] Ambulatory [place] [facility]18 [facility] [place] Repository 12/22/2017 [id number] Ambulatory [facility] Hospital ding:MEDOUTP Repository 12/21/2017/2 [id number] Ambulatory [place] [facility]18 [facility] [place] Repository 12/19/2017 [id number] Ambulatory [facility] Hospital ding:MEDOUTP Repository 12/18/2017/ [id number] Ambulatory [place] [facility] [place] Repository 12/18/2017/ [id number] Ambulatory [place] [facility] [place] Repository 12/12/2017/ [id number] Inpatient [place] 018 Encounter Clinic [facility] [place] Repository 12/08/2017/ [id number] Ambulatory [place] [facility] [place] Repository 12/08/2017/ [id number] Ambulatory [place] [facility] [place] Repository 12/07/2017/ [id number] Ambulatory [place] [facility] [place] Repository 12/05/2017/ [id number] Ambulatory [place] [facility] [place] Repository 12/05/2017/ [id number] Ambulatory [place] [facility] [place] Repository 12/05/2017/ [id number] Ambulatory [place] [facility] [place] Repository 12/04/2017/ [id number] [facility] Inpatient [place] 018 JOSE Encounter Clinic [facility] [place] Repository 12/02/2017/ [id number] GAEL VIEIRA Ambulatory [place] [facility]18 OTTO Clinic [facility] [place] Repository 11/27/2017/ [id number] MCKENNARADHAAN, Inpatient [place] 018 NARENDRAKUMAR Encounter Clinic [place] Repository 11/13/2017/ [id number] Inpatient [place] [facility]18 Encounter Clinic [facility] [place] Repository 11/03/2017/ [id number] ALARADHAAN, Inpatient [place] 018 NARENDRAKUMAR Encounter Clinic [place] Repository 11/02/2017/ [id number] ALAPPAN, Ambulatory [place] [facility]18 NARENDRAKUMAR Clinic [place] Repository 10/27/2017/ [id number] ALAPPAN, Ambulatory [place] [facility]18 NARENDRAKUMAR Clinic [facility] [place] Repository 10/25/2017/ [id number] ALAPPAN, Inpatient [place] 018 NARENDRAKUMAR Encounter Clinic [place] Repository 10/23/2017/ [id number] SAPNA WYATT Inpatient [place] 018 Encounter Clinic Other [place] Repository 10/23/2017/04/16 [id number] Emergency [address] ding:ED Repository 10/20/2017 [id number] Ambulatory [facility] ding:MEDOUTP Repository 10/18/2017/ [id number] Inpatient [place] [facility]18 Encounter Clinic [facility] [place] Repository 10/16/2017/ [id number] Inpatient [place] 018 Encounter Clinic [facility] [place] Repository 10/14/2017/ [id number] Ambulatory [place] [facility]18 Clinic [facility] [place] Repository 10/14/2017/ [id number] Ambulatory [place] [facility] [place] Repository 10/13/2017/ [id number] ROS CHRISTIE Inpatient [place] 018 Encounter Clinic [place] Repository 10/13/2017/ [id number] Emergency [address] ding:ED Repository 10/13/2017 [id number] Ambulatory [facility] Repository 10/13/2017 [id number] Ambulatory [facility] ding:MEDOUTP Repository 10/09/2017 [id number] Ambulatory [facility] ding:MEDOUTP Repository 10/06/2017 [id number] Ambulatory [facility] ding:MEDOUTP Repository 10/02/2017/ [id number] Inpatient [place] [facility]18 Encounter Clinic [place] Repository 09/29/2017/ [id number] AUSTEN CHOUDHURY Inpatient [place] 018 R Encounter [facility] Main [place] Repository 09/29/2017 [id number] Ambulatory [facility] ding:MEDOUTP Repository 09/27/2017/ [id number] Ambulatory [place] [facility] [place] Repository 09/27/2017/ [id number] Ambulatory [place] [facility] [place] Repository 09/22/2017 [id number] Ambulatory [facility] ding:MEDOUTP Repository 09/18/2017/ [id number] Ambulatory [place] [facility] [place] Repository 09/15/2017 [id number] Ambulatory [facility] Hospital ding:MEDOUTP Repository 09/12/2017/ [id number] Ambulatory [place] 018 [facility] Main [place] Repository 09/11/2017/ [id number] Ambulatory [place] 018 [facility] [place] Repository 09/11/2017 [id number] Ambulatory [facility] [place] Repository 09/11/2017/ [id number] Ambulatory [place] 018 [facility] Main [place] Repository 09/11/2017 [id number] Ambulatory [facility] Hospital ding:MEDOUTP Repository 09/08/2017 [id number] Ambulatory [facility] Hospital ding:MEDOUTP Repository 09/06/2017/ [id number] Inpatient [place] 018 [facility] Repository 09/01/2017 [id number] Ambulatory [facility] ding:MEDOUTP Repository 08/25/2017/ [id number] LISSETH HANKS Inpatient [place] 018 [facility] Repository 08/25/2017 [id number] Ambulatory [facility] Hospital ding:MEDOUTP Repository 08/21/2017/ [id number] Ambulatory [place] 018 [facility] [place] Repository 08/16/2017 [id number] Ambulatory [facility] Hospital ding:MEDOUTP Repository 08/11/2017 [id number] Ambulatory [facility] Hospital ding:MEDOUTP Repository 08/07/2017/ [id number] Ambulatory [place] 018 [facility] [place] Repository 08/07/2017/ [id number] Ambulatory [place] 018 [facility] Main [place] Repository 08/04/2017 [id number] [facility] Rep[facility] 07/28/2017 [id number] [facility] Repository 07/24/2017/ [id number] Ambulatory [address] Main [place] Repository 07/21/2017 [id number] Ambulatory [facility] Hospital ding:MEDOUTP Repository 07/19/2017/ [id number] Ambulatory [address] Repository 07/14/2017 [id number] Ambulatory [facility] ding:MEDOUTP Repository 07/11/2017 [id number] Ambulatory [facility] [facility] Repository 07/11/2017/ [id number] Ambulatory [address] Repository 07/07/2017 [id number] Ambulatory [facility] ding:MEDOUTP Repository 06/30/2017 [id number] Ambulatory [facility] ding:MEDOUTP Repository 06/27/2017/ [id number] Ambulatory [address] Repository 06/27/2017/ [id number] Ambulatory [address] Repository PAYERS PAYERS ENCOUNTER GUARANTOR PAYER SUBSCRIBER SOURCE 06/22/2018 PALOMA [id number] Primary [facility] Insurance:MYCARE CRSC OLIVERDOB: [place] [id number] [facility] [id number] Hospital [address]Zis: (330) Number: Repository [phone] () [id number] Date:1865-05-75WQBU CLAIMS [address] [address]TG: 06/22/2018 Secondary NOT GIVENUNK [place] Insurance:SELF PAY [facility] Number: Effective Repository Date:2018-06-18 06/19/2018 PALOMA [id number] Primary [facility] Insurance:MYCARE CRSC OLIVERDOB: Community [id number][place] [facility] [id number] Hospital [address]Eso: (330) Number: Repository [phone] () [id number] Date:5405-97-17OGKR CLAIMS [address] [place] [address]LS: 06/19/2018 Secondary NOT GIVENUNK [place] Insurance:SELF PAY [facility] Number: Effective Repository Date:2018-06-19 06/18/2018 PALOMA [id number] Primary PALOMA Obrien [address] Insurance:MYCARE CRSC OLIVERDOB: Community [id number][place] [facility] [id number] Hospital 93968Tdz: (330) Number: Repository [phone] () [id number] Date:3091-90-20REEK [place]S [address] [address]YI: 06/18/2018 Secondary NOT GIVENUNK [place] Insurance:SELF PAY [facility] Number: Effective Repository Date:2018-06-15 06/15/2018 PALOMA Aguilar [id number] Primary PALOMA Obrien [address] Insurance:MYCARE CRSC OLIVERDOB: [place] [id number][place] [facility] [id number] Hospital [address]32[address]Ptd: (330) Number: Repository [phone] () [id number] Date:8959-70-54NPLV CLAIMS [address], [place] [address]EL: 06/15/2018 Secondary NOT GIVENUNK [place] Insurance:SELF PAY [facility] Number: Effective Repository Date:2018-06-12 06/10/2018 PALOMA Aguilar [id number] Primary PALOMA [facility] [address] Insurance:MYCARE CRSC OLIVERDOB: [place] [id number][place] [facility] [id number] Hospital [address]Nag: (330) Number: Repository [phone] () [id number] Date:1911-64-32FCVU CLAIMS [address] [address]ZQ: 06/10/2018 Secondary NOT GIVENUNK [place] Insurance:SELF PAY [facility] Number: Effective Repository Date:2018-06-10 06/08/2018 PALOMA Aguilar [id number] Primary [facility] Insurance:MYCARE CRSC OLIVERDOB: Community [id number][place] [facility] [id number] Hospital 9[address]Iuh: (330) Number: Repository [phone] () [id number] Date:6922-59-66NGOK CLAIMS [address] [address]ZA: 06/08/2018 Secondary NOT GIVENUNK [place] Insurance:SELF PAY [facility] Number: Effective Repository Date:2018-06-04 06/04/2018 PALOMA Aguilar [id number] Primary PALOMA Aguilar [facility] RDAPT Insurance:MYCARE CRSC OLIVERDOB: [place] [id number][place] [facility] [id number] Hospital 14797Muu: (330) Number: Repository [phone] () [id number] Date:9174-70-98GHHN CLAIMS [address] [address]EQ: 06/04/2018 Secondary NOT GIVENUNK [place] Insurance:SELF PAY [facility] Number: Effective Repository Date:2018-06-04 06/04/2018 PALOMA Aguilar [id number] Primary PALOMA Lauren [facility] RD[address] Insurance:MYCARE CRSC OLIVERDOB: [place] [id number][place] [facility] [id number] Hospital [address]Scb: (330) Number: Repository [phone] () [id number] Date:9650-96-70NKWU CLAIMS [address] [address]OD: 06/04/2018 Secondary NOT GIVENUNK [place] Insurance:SELF PAY [facility] Number: Effective Repository Date:2018-06-04 05/18/2018 PALOMA Aguilra [id number] Primary PALOMA Aguilar [facility] RD[address] Insurance:MYCARE CRSC OLIVERDOB: [place] [id number][place] [facility] [id number] Hospital [address]33[address]Ufa: (330) Number: Repository [phone] () [id number] Date:3852-62-74AOVU CLAIMS [address] [address]FN: 05/18/2018 Secondary NOT GIVENUNK [place] Insurance:SELF PAY [facility] Number: Effective Repository Date:2018-05-02 05/11/2018 PALOMA Aguilar [id number] Primary PALOMA [address] Insurance:MYCARE CRSC OLIVERDOB: Community [address], [place] [facility] [id number] Hospital 435[address]Gns: (330) Number: Repository [phone] () [id number] Date:9239-98-84BHIF CLAIMS [address]PT[address] [place] [address]CS: 05/11/2018 Secondary NOT GIVENUNK [place] Insurance:SELF PAY [facility] Number: Effective Repository Date:2018-04-27 05/04/2018 PALOMA Aguilar [id number] Primary [facility] Insurance:MYCARE CRSC OLIVERDOB: Community [address], [place] [facility] [id number] Hospital [address]Sjb: (330) Number: Repository [phone] () [id number] Date:8289-80-81WJSY CLAIMS [address] [place] [address]GX: 05/04/2018 Secondary NOT GIVENUNK [place] Insurance:SELF PAY [facility] Number: Effective Repository Date:2018-04-20 04/27/2018 PALOMA Aguilar [id number] Primary PALOMA [address] Insurance:MYCARE CRSC OLIVERDOB: Community [address], [place] [facility] [id number] Hospital 15514Rxv: (330) Number: Repository [phone] () [id number] Date:5793-34-70FGBT CLAIMS [address] [place] [address]KE: 04/27/2018 Secondary NOT GIVENUNK [place] Insurance:SELF PAY [facility] Number: Effective Repository Date:2018-04-20 04/24/2018 PALOMA Aguilar [id number] Primary [facility] Insurance:MYCARE CRSC OLIVERDOB: [place] [id number][place] [facility] [id number] Hospital [address]Bei: (330) Number: Repository [phone] () [id number] Date:4177-08-37MXUI CLAIMS DEPTPO [address] [place] [address]YV: 04/24/2018 Secondary PALOMA M Micah Insurance:MEDICARE OLIVERDOB: [facility] PART A [facility] [id number] Hospital Number: Repository [id number] Date:2018-04-24 04/24/2018 Tertiary NOT GIVENUNK [place] Insurance:SELF PAY [facility] Number: Effective Repository Date:2018-04-24 04/24/2018 PALOMA Aguilar [id number] Primary PALOMA [address] Insurance:MYCARE CRSC OLIVERDOB: [place] [id number][place] [facility] [id number] Hospital [address]013Bez: (330) Number: Repository [phone] () [id number] Date:6711-52-53HKBY CLAIMS [address]PT[address] [place] [address]RR: 04/24/2018 Secondary PALOMA M [place] Insurance:MEDICAIDPol OLIVERDOB: Community [facility] Number: [id number] Hospital [id number] Repository Date:2018-04-24 04/24/2018 Tertiary NOT GIVENUNK [place] Insurance:SELF PAY [facility] Number: Effective Repository Date:2018-04-24 04/23/2018 PALOMA Aguilar [id number] Primary NOT GIVENUNK [place] [address] Insurance:SELF PAY [address], [facility] [address]Kzv: (330) Number: Effective Repository [phone] () Date:2018-04-23 04/20/2018 PALOMA Aguilar [id number] Primary PALOMA Obrien [address] Insurance:MYCARE CRSC OLIVERDOB: [place] [id number][place] [facility] [id number] Hospital 715[address]Ovt: (330) Number: Repository [phone] () [id number] Date:2130-27-84EJYQ CLAIMS [address], [place] [address]SD: 04/20/2018 Secondary NOT GIVENUNK [place] Insurance:SELF PAY [facility] Number: Effective Repository Date:2018-04-20 04/12/2018 PALOMA Aguilar [id number] Primary PALOMA Aguilar [facility] [address] Insurance:MYCARE CRSC OLIVERDOB: Community [id number][place] [facility] [id number] Hospital 6[address]Ngo: (330) Number: Repository [phone] () [id number] Date:4484-88-79HFFZ CLAIMS [address], [place] [address]VI: 04/12/2018 Secondary NOT GIVENUNK [place] Insurance:SELF PAY [facility] Number: Effective Repository Date:2018-04-11 04/09/2018 PALOMA Aguilar [id number] Primary [facility] [address] Insurance:MYCARE CRSC OLIVERDOB: [place] [id number][place] [facility] [id number] Hospital [address]Vhf: (330) Number: Repository [phone] () [id number] Date:7844-91-67YFCY CLAIMS [address], [place] [address]XO: 04/09/2018 Secondary NOT GIVENUNK [place] Insurance:SELF PAY [facility] Number: Effective Repository Date:2018-04-04 04/05/2018 PALOMA Aguilar [id number] Primary PALOMA Lauren [facility] [address] Insurance:MYCARE CRSC OLIVERDOB: [place] [id number][place] [facility] [id number] Hospital 235[address]Lej: (330) Number: Repository [phone] () [id number] Date:0510-21-38GXYE CLAIMS [address] [address]YQ: 04/05/2018 Secondary NOT GIVENUNK [place] Insurance:SELF PAY [facility] Number: Effective Repository Date:2018-04-04 02/09/2018 PALOMA Aguilar [id number] Primary PALOMA [address] Insurance:MYCARE CRSC OLIVERDOB: [place] [id number][place] [facility] [id number] Hospital 89351Jxw: (330) Number: Repository [phone] () [id number] Date:9302-52-67EYJB CLAIMS [address] [address]TQ: 02/09/2018 Secondary NOT GIVENUNK [place] Insurance:SELF PAY [facility] Number: Effective Repository Date:2018-01-25 02/02/2018 PALOMA Aguilar [id number] Primary PALOMA [address] Insurance:MYCARE CRSC OLIVERDOB: Community [id number][place] [facility] [id number] Hospital [address]Cfa: (330) Number: Repository [phone] () [id number] Date:2937-79-55ZRPU CLAIMS [address] [place] [address]SP: 02/02/2018 Secondary NOT GIVENUNK [place] Insurance:SELF PAY [facility] Number: Effective Repository Date:2018-01-25 01/26/2018 PALOMA Aguilar [id number] Primary [facility] Insurance:MYCARE CRSC OLIVERDOB: [place] [id number][place] [facility] [id number] Hospital 39638Bks: (330) Number: Repository [phone] () [id number] Date:9051-02-13BWNR CLAIMS [address] [place] [address]OM: 01/26/2018 Secondary NOT GIVENUNK [place] Insurance:SELF PAY [facility] Number: Effective Repository Date:2018-01-25 01/19/2018 PALOMA Aguilar [id number] Primary PALOMA [address] Insurance:MYCARE CRSC OLIVERDOB: [place] [id number][place] [facility] [id number] Hospital 626[address]Wqj: (330) Number: Repository [phone] () [id number] Date:5208-51-16NPVA CLAIMS [address], [place] [address]DB: 01/19/2018 Secondary NOT GIVENUNK [place] Insurance:SELF PAY [facility] Number: Effective Repository Date:2018-01-05 01/12/2018 PALOMA Aguilar [id number] Primary PALOMA M [facility] [address] Insurance:MYCARE CRSC OLIVERDOB: [place] [id number][place] [facility] [id number] Hospital 073[address]Lhc: (330) Number: Repository [phone] () [id number] Date:7403-18-49PAYI CLAIMS [address], [place] [address]MS: 01/12/2018 Secondary NOT GIVENUNK [place] Insurance:SELF PAY [facility] Hospital Number: Effective Repository Date:2018-01-05 01/05/2018 PALOMA Aguilar [id number] Primary [facility] [address] Insurance:MYCARE CRSC OLIVERDOB: [place] [id number][place] [facility] [id number] Hospital [address]4500Uxc: (330) Number: Repository [phone] () [id number] Date:8566-89-78QQBP CLAIMS [address], [place] [address]MR: 01/05/2018 Secondary NOT GIVENUNK [place] Insurance:SELF PAY [facility] Number: Effective Repository Date:2017-12-29 01/05/2018 PALOMA Aguilar [id number] Primary [facility] [address] Insurance:MYCARE CRSC OLIVERDOB: [place] [id number][place] [facility] [id number] Hospital 17299Pmf: (330) Number: Repository [phone] () [id number] Date:5821-32-84GBUI CLAIMS [address], [place] [address]PS: 01/05/2018 Secondary NOT GIVENUNK [place] Insurance:SELF PAY [facility] Number: Effective Repository Date:2018-01-05 01/02/2018 PALOMA Aguilar [id number] Primary PALOMA Aguilar [facility] [address] Insurance:MYCARE CRSC [place]IVERDOB: [place] [id number][place] [facility] [id number] Hospital 727[address]Bdw: (330) Number: Repository [phone] () [id number] Date:2778-32-35UHZP CLAIMS [address], [place] [address]ZC: 01/02/2018 Secondary NOT GIVENUNK [place] Insurance:SELF PAY [facility] Number: Effective Repository Date:2018-01-01 12/29/2017 PALOMA Aguilar [id number] Primary PALOMA Aguilar [facility] [address] Insurance:MYCARE CRSC [place]IVERDOB: [place] [id number][place] [facility] [id number] Hospital 44182Qiu: (330) Number: Repository [phone] () [id number] Date:9437-02-83GECT CLAIMS [address], [place] [address]TM: 12/29/2017 Secondary NOT GIVENUNK [place] Insurance:SELF PAY [facility] Number: Effective Repository Date:2017-12-28 12/22/2017 PALMOA Aguilar [id number] Primary PALOMA Aguilar [facility] [address] Insurance:MYCARE CRSC [place]IVERDOB: [place] [id number][place] [facility] [id number] Hospital 09518Pnx: Number: Repository [phone] [id number] () Date:8442-32-87RMQM CLAIMS [address], [place] [address]QW: 12/22/2017 Secondary NOT GIVENUNK [place] Insurance:SELF PAY [facility] Number: Effective Repository Date:2017-12-21 12/19/2017 PALOMA Aguilar [id number] Primary [facility] Insurance:MYCARE CRSC [place]DOB[place]JI[place] [facility] [id number] Hospital 232[address]Oyu: Number: Repository [phone] [id number] (HP) Date:5530-42-28ZRDH CLAIMS [address]PTPO [address] [address]ZM: 12/19/2017 Secondary NOT GIVENUNK [place] Insurance:SELF PAY [facility] Number: Effective Repository Date:2017-12-18 10/23/2017 PALOMA Aguilar [id number] Primary [facility] Insurance:MYCARE CRSC [place]DOB: [place] [facility] [id number] Hospital 78995Kgv: Number: Repository [phone] [id number] (HP) Date:5826-68-35XIGW CLAIMS [address], [place] [address]FZ: 10/23/2017 Secondary NOT GIVENUNK [place] Insurance:SELF PAY [facility] Number: Effective Repository Date:2017-10-23 10/20/2017 PALOMA Aguilar [id number] Primary PALOMA VarelaExcela [facility] [address] Insurance:MYCARE CRSC [place]OB: [place] [facility] [id number] Hospital 880[address]Cet: Number: Repository [phone] [id number] (HP) Date:3946-44-43HRBX CLAIMS [address], [place] [address]VQ: 10/20/2017 Secondary NOT GIVENUNK [place] Insurance:SELF PAY [facility] Number: Effective Repository Date:2017-10-13 10/13/2017 PALOMA Aguilar [id number] Primary PALOMA VarelaExcela [facility] [address] Insurance:MYCARE CRSC OLIVERDOB: [place] [id number][place] [facility] [id number] Hospital 992[address]Lft: Number: Repository [phone] [id number] (HP) Date:2471-14-20CJFX CLAIMS [address]PT[address] [address]SS: 10/13/2017 Secondary NOT GIVENUNK [place] Insurance:SELF PAY [facility] Number: Effective Repository Date:2017-10-13 10/13/2017 PALOMA Aguilar [id number] Primary PALOMA Obrien [address] Insurance:MYCARE CRSC [place]IVERDOB: [place] [id number][place] [facility] [id number] Hospital 19177Qgx: Number: Repository [phone] [id number] (HP) Date:1466-60-07BYDE CLAIMS [address], [place] [address]PE: 10/13/2017 Secondary NOT GIVENUNK [place] Insurance:SELF PAY [facility] Number: Effective Repository Date:2017-10-13 10/13/2017 PALOMA Aguilar [id number] Primary PALOMA Aguilar [facility] [address] Insurance:MYCARE CRSC OLIVERDOB: [place] [id number][place] [facility] [id number] Hospital 612[address]Lay: Number: Repository [phone] [id number] (HP) Date:6957-31-29ZUPO CLAIMS [address]PT[address] [address]BL: 10/13/2017 Secondary NOT GIVENUNK [place] Insurance:SELF PAY [facility] Number: Effective Repository Date:2017-10-09 10/09/2017 PALOMA Aguilar [id number] Primary [facility] Insurance:MYCARE CRSC OLIVERDOB: [place] [id number][place] [facility] [id number] Hospital 83241Wdn: Number: Repository [phone] [id number] (HP) Date:6629-23-58ANVC CLAIMS [address]PT[address], [place] [address]WZ: 10/09/2017 Secondary NOT GIVENUNK [place] Insurance:SELF PAY [facility] Number: Effective Repository Date:2017-10-06 10/06/2017 PALOMA [id number] Primary PALOMA [address] Insurance:MEDICARE OLIVERDOB: [address] PART A [facility] [id number] Hospital [address]Tlp: Number: Repository [phone] [id number] (HP) Date:2017-09-29 10/06/2017 Secondary PALOMA M [place] Insurance:MEDICAIDPol OLIVERDOB: [facility] ic Number: [id number] Hospital [id number] Repository Date:2017-09-29 10/06/2017 Tertiary NOT GIVENUNK [place] Insurance:SELF PAY [facility] Number: Effective Repository Date:2017-09-29 09/29/2017 PALOMA [id number] Primary PALOMA [address] Insurance:MEDICARE OLIVERDOB: [address] PART A [facility] [id number] Hospital [address]642Bov: Number: Repository [phone] [id number] (HP) Date:2017-09-22 09/29/2017 Secondary PALOMA M [place] Insurance:MEDICAIDPol OLIVERDOB: [facility] icy Number: [id number] Hospital [id number] Repository Date:2017-09-22 09/29/2017 Tertiary NOT GIVENUNK [place] Insurance:SELF PAY [facility] Number: Effective Repository Date:2017-09-22 09/22/2017 PALOMA Aguilar [id number] Primary PALOMA [address] Insurance:MEDICARE OLIVERDOB: [address] PART A [facility] [id number] Hospital [address]Jef: Number: Repository [phone] [id number] (HP) Date:2017-09-22 09/22/2017 Secondary PALOMA M [place] Insurance:MEDICAIDPol OLIVERDOB: Community icy Number: [id number] Hospital [id number] Repository Date:2017-09-22 09/22/2017 Tertiary NOT GIVENUNK [place] Insurance:SELF PAY [facility] Number: Effective Repository Date:2017-09-22 09/15/2017 PALOMA [id number] Primary PALOMA [address] Insurance:MEDICARE OLIVERDOB: Community [address] PART A [facility] [id number] Hospital [address]Ebs: Number: Repository [phone] [id number] (HP) Date:2017-09-08 09/15/2017 Secondary PALOMA Aguilar [place] Insurance:MEDICAIDPol OLIVERDOB: [facility] icy Number: [id number] Hospital [id number] Repository Date:2017-09-08 09/15/2017 Tertiary NOT GIVENUNK [place] Insurance:SELF PAY [facility] Number: Effective Repository Date:2017-09-08 09/11/2017 PALOMA [id number] Primary PALOMA [address] Insurance:MEDICARE OLIVERDOB: Community [address] PART A [facility] [id number] Hospital 247[address]Ttu: Number: Repository [phone] [id number] (HP) Date:2017-09-08 09/11/2017 Secondary PALOMA Aguilar [place] Insurance:MEDICAIDPol OLIVERDOB: Community icy Number: [id number] Hospital [id number] Repository Date:2017-09-08 09/11/2017 Tertiary NOT GIVENUNK [place] Insurance:SELF PAY [facility] Number: Effective Repository Date:2017-09-08 09/08/2017 PALOMA Aguilar [id number] Primary PALOMA [address] Insurance:MEDICARE OLIVERDOB: Community [address] PART A [facility] [id number] Hospital 19256Ntc: (330) Number: Repository [phone] () [id number] Date:2017-08-31 09/08/2017 Secondary PALOMA Aguilar [place] Insurance:MEDICAIDPol OLIVERDOB: Community icy Number: [id number] Hospital [id number] Repository Date:2017-08-31 09/08/2017 Tertiary NOT GIVENUNK [place] Insurance:SELF PAY [facility] Number: Effective Repository Date:2017-08-31 09/01/2017 PALOMA [id number] Primary PALOMA OLIVERDOB: [place] [address] Insurance:MEDICARE [id number] [address] PART A [facility] [address]Zph: Number: Repository [phone] [id number] (HP) Date:2017-08-25 09/01/2017 Secondary PALOMA OLIVERDOB: [place] Insurance:MEDICAIDPol [id number] [facility] icy Number: Hospital [id number] Repository Date:2017-08-25 09/01/2017 Tertiary NOT GIVENUNK [place] Insurance:SELF PAY [facility] Number: Effective Repository Date:2017-08-25 08/25/2017 PALOMA [id number] Primary PALOMA OLIVERDOB: [place] [address] Insurance:MEDICARE [id number] [address] PART A [facility] [address]Ewm: Number: Repository [phone] [id number] (HP) Date:2017-08-18 08/25/2017 Secondary PALOMA OLIVERDOB: [place] Insurance:MEDICAIDPol [id number] Community icy Number: Hospital [id number] Repository Date:2017-08-18 08/25/2017 Tertiary NOT GIVENUNK [place] Insurance:SELF PAY [facility] Number: Effective Repository Date:2017-08-18 08/16/2017 PALOMA Aguilar [id number] Primary PALOMA M [place] [address] Insurance:MEDICARE OLIVERDOB: [address] PART A [facility] [id number] [facility] [address]Pbe: (330) Number: Repository [phone] () [id number] Date:2017-08-11 08/16/2017 Secondary PALOMA M [place] Insurance:MEDICAIDPol OLIVERDOB: Community icy Number: [id number] Hospital [id number] Repository Date:2017-08-11 08/16/2017 Tertiary NOT GIVENUNK [place] Insurance:SELF PAY [facility] Effective Repository Date:2017-08-11 08/11/2017 PALOMA ENRIQUER1855 Primary PALOMA OLIVERDOB: Micah [address] Insurance:MEDICARE [id number] [facility] [id number]: Number: Repository [phone] [id number] (HP) Date:2017-07-31 08/11/2017 Secondary PALOMA OLIVERDOB: [place] Insurance:MEDICAIDPol [id number] Community icy Number: Hospital [id number] Repository Date:2017-07-31 08/11/2017 Tertiary NOT GIVENUNK [place] Insurance:SELF PAY [facility] Rep[facility] Date:2017-07-31 08/04/2017 PALOMA ENRIQUER[address] Insurance:MEDICARE OLIVERDOB: [address] PART A [facility] [id number] Hospital [id number]: Number: Repository [phone] [id number] (HP) Date:2017-07-28 08/04/2017 Secondary PALOMA Aguilar Mic[place] Insurance:MEDICAIDPol OLIVERDOB: Community icy Number: [id number] Hospital [id number] Repository Date:2017-07-28 08/04/2017 Tertiary NOT GIVENUNK [place] Insurance:SELF PAY [facility] Effective Repository Date:2017-07-28 07/28/2017 PALOMA Aguilar [id number] Primary [address] Insurance:MEDICARE OLIVERDOB: [address] PART A [facility] [id number] Hospital [id number]: ([phone]) Number: Repository [phone] () [id number] Date:2017-07-21 07/28/2017 Secondary PALOMA Aguilar [place] Insurance:MEDICAIDPol OLIVERDOB: Community icy Number: [id number] Hospital [id number] Repository Date:2017-07-21 07/28/2017 Tertiary NOT GIVENUNK [place] Insurance:SELF PAY [facility] Effective Repository Date:2017-07-21 07/21/2017 [address]OMA [id number] Insurance:MEDICARE BUTTERBAUGHDOB: [address] PART A [facility] [id number] Hospital [address]Pbv: Number: Repository [phone] [id number] () Date:2017-07-14 07/21/2017 Secondary PALOMA Aguilar [place] Insurance:MEDICAIDPol BUTTERBAUGHDOB: Community icy Number: [id number] Hospital [id number] Repository Date:2017-07-14 07/21/2017 Tertiary NOT GIVENUNK [place] Insurance:SELF PAY [facility] Effective Repository Date:2017-07-14 07/14/2017 PALOMA [id number] Insurance:MEDICARE BUTTERBAUGHDOB: [address] PART A [facility] [id number] Hospital [address]Vwr: ([phone]) Number: Repository [phone] () [id number] Date:2017-07-07 07/14/2017 Secondary PALOMA Aguilar [place] Insurance:MEDICAIDPol BUTTERBAUGHDOB: [facility] icy Number: [id number] Hospital [id number] Repository Date:2017-07-07 07/14/2017 Tertiary NOT GIVENUNK [place] Insurance:SELF PAY [facility] Number: Effective Repository Date:2017-07-07 07/07/2017 [address]OMA [id number] Insurance:MEDICARE OLIVERDOB: [address] PART A [facility] [id number] Hospital [address]Ddo: (330) Number: Repository [phone] () [id number] Date:2017-06-30 07/07/2017 Secondary PALOMA ENRIQUERDOB: [place] Insurance:MEDICAIDPol [id number] Community icy Number: [facility] [id number] Repository Date:2017-06-30 07/07/2017 Tertiary NOT GIVENUNK [place] Insurance:SELF PAY [facility]: Effective Repository Date:2017-06-30 06/30/2017 PALOMA [id number] Primary PALOMA [address] [facility] [address] Insurance:MEDICARE BUTTERBAUGHDOB: Community [id number] PART A BPolicy [id number] Hospital [id number]: (330) Number: Repository [phone] () [id number] Date:2017-06-23 06/30/2017 Secondary PALOMA TORREZOB: [place] [facility] [id number] [facility] icy Number: Hospital [id number] Repository Date:2017-06-23 06/30/2017 Tertiary NOT GIVENUNK [place] Insurance:SELF PAY [facility]: Effective Repository Date:2017-06-23
== END 2018-06-05 00:26 | disposition short-term general hospital (02) ==
LOC: ED 21:47
PROVIDERS: Emergency Provider Emergency Medicine; Family Provider Internal Medicine; PCP Internal Medicine
DX: K66.1 Hemoperitoneum (principal); D75.82 Heparin induced thrombocytopenia (HIT); N18.9 Chronic kidney disease, unspecified; Z79.01 Long term (current) use of anticoagulants; Z79.52 Long term (current) use of systemic steroids; Z79.899 Other long term (current) drug therapy; Z86.718 Personal history of other venous thrombosis and embolism
CPT/HCPCS: 36592; 74176; 80053; 81001; 83605; 85025; 85610; 85730; 96374; 96375; 96376; 99284; A4216

== ENCOUNTER → 2018-06-08 10:20 | Outpatient (CLI) | payer MEDICARE, SELFPAY ==
[2018-06-04 20:41] VITALS: BMI 36.6
[2018-06-08 10:59] LABS: International Normalized Ratio 1.9; Prothrombin Time (Protime)PT. 22.2 SECONDS (11.7-14.9)
--- OUTSIDE RECORDS SUMMARY | 2018-08-03 05:39 | XMS RPT_ITS ---
:1990 Author Organization OHIP Support Name Relationship Address Phone JANE AIKEN/SILVER Unavailable [address] + [place] [address] D Unavailable Unavailable Unavailable MORTEZA CANNON Unavailable [address] + [place] [address] JANE AIKEN/SILVER Unavailable [address] + [place] [address] D Unavailable Unavailable Unavailable MORTEZA CANNON Unavailable [address] + [place] [address] NELLI JANE/SILVER Unavailable [address] + [place] [address] D Unavailable Unavailable Unavailable MORTEZA CANNON Unavailable [address] + [place] [address] NELLI JANE/SILVER Unavailable [address] + [place] [address] D Unavailable Unavailable Unavailable MORTEZA CANNON Unavailable [address] + [place] [address] JANE AIKEN/SILVER Unavailable [address] + [place] [address] D Unavailable Unavailable Unavailable MORTEZA CANNON Unavailable [address] + [place] [address] JANE AIKEN/SILVER Unavailable [address] + [place] [address] D Unavailable Unavailable Unavailable MORTEZA CANNON Unavailable [address] + [place] [address] BUTTERBAUGH, JANE/SILVER Unavailable [address] + [place] [address] D Unavailable Unavailable Unavailable MORTEZA CANNON Unavailable [address] + [place] [address] NELLI JANE/SILVER Unavailable [address] + [place] [address] D Unavailable Unavailable Unavailable MORTEZA CANNON Unavailable [address] + [place] [address] NELLI JANE/SILVER Unavailable [address] + [place] [address] D Unavailable Unavailable Unavailable MORTEZA CANNON Unavailable [address] + [place] [address] NELLI JANE/SILVER Unavailable [address] + [place] [address] D Unavailable Unavailable Unavailable MORTEZA CANNON Unavailable [address] + [place] [address] RICKEYBAMELISSA JANE/SILVER Unavailable [address] + [place] [address] D Unavailable Unavailable Unavailable MORTEZA CANNON Unavailable [address] + [place] [address] BUTTERBAMELISSA JANE/SILVER Unavailable [address] + [place] [address] D Unavailable Unavailable Unavailable MORTEZA CANNON Unavailable [address] + [place] [address] BUTTERBAMELISSA JANE/SILVER Unavailable [address] + [place] [address] D Unavailable Unavailable Unavailable MORTEZA CANNON Unavailable [address] + [place] [address] BUTTERBAMELISSA, JANE/SILVER Unavailable [address] + [place] [address] D Unavailable Unavailable Unavailable MORTEZA CANNON Unavailable [address] + [place] [address] BUTTERBAMELISSA, JANE/SILVER Unavailable [address] + [place] [address] D Unavailable Unavailable Unavailable MORTEZA CANNON Unavailable [address] + [place] [address] RICKEYBAMELISSA, JANE/SILVER Unavailable [address] + [place] [address] D Unavailable Unavailable Unavailable MORTEZA CANNON Unavailable [address] + [place] [address] RICKEYBAMELISSA, JANE/SILVER Unavailable [address] + [place] [address] D Unavailable Unavailable Unavailable MORTEZA CANNON Unavailable [address] + [place] [address] NELLI, JANE/SILVER Unavailable [address] + [place] [address] D Unavailable Unavailable Unavailable MORTEZA CANNON Unavailable [address] + [place] [address] NELLI, JANE/SILVER Unavailable [address] + [place] [address] D Unavailable Unavailable Unavailable MORTEZA CANNON Unavailable [address] + [place] [address] NELLI, JANE/SILVER Unavailable [address] + [place] [address] D Unavailable Unavailable Unavailable MORTEZA CANNON Unavailable [address] + [place] [address] RICKEYBAMELISSA, JANE/SILVER Unavailable [address] + [place] [address] D Unavailable Unavailable Unavailable MORTEZA CANNON Unavailable [address] + [place] [address] RICKEYBAUGH, JANE/SILVER Unavailable [address] + [place] [address] D Unavailable Unavailable Unavailable MORTEZA CANNON Unavailable [address] + [place] [address] BUTTERBAMELISSA, JANE/SILVER Unavailable [address] + [place] [address] D Unavailable Unavailable Unavailable DAVIS MORTEZA Unavailable [address] + [place] [address] BUTTERBAUGH, JANE/SILVER Unavailable [address] + [place] [address] D Unavailable Unavailable Unavailable DAVIS MORTEZA Unavailable [address] + [place] [address] BUTTERBAUGH, JANE/SILVER Unavailable [address] + [place] [address] D Unavailable Unavailable Unavailable DAVISMORTEZA Unavailable [address] + [place] [address] BUTTERBAUGH, JANE/SILVER Unavailable [address] + [place] [address] D Unavailable Unavailable Unavailable DAVISMORTEZA Unavailable [address] + [place] [address] BUTTERBAUGH, JANE/SILVER Unavailable [address] + [place] [address] D Unavailable Unavailable Unavailable DAVISMORTEZA Unavailable [address] + [place] [address] BUTTERBAUGH, JANE/SILVER Unavailable [address] + [place] [address] D Unavailable Unavailable Unavailable DAVISMORTEZA Unavailable [address] + [place] [address] BUTTERBAUGH, JANE/SILVER Unavailable [address] + [place] [address] D Unavailable Unavailable Unavailable MORTEZA CANNON Unavailable [address] [facility] + [place] [address] BUTTERBAUGH, JANE/SILVER Unavailable [address] + [place] [address] D Unavailable Unavailable Unavailable MORTEZA CANNON Unavailable [address] + [place] [address] NELLI, JANE/SILVER Unavailable [address] + [place] [address] D Unavailable Unavailable Unavailable MORTEZA CANNON Unavailable [address] + [place] [address] RICKEYBAMELISSA, JANE/SILVER Unavailable [address] + [place] [address] D Unavailable Unavailable Unavailable MORTEZA CANNON Unavailable [address] + [place] [address] NELLI, JANE/SILVER Unavailable [address] + [place] [address] D Unavailable Unavailable Unavailable MORTEZA CANNON Unavailable [address] + [place] [address] RICKEYBAMELISSA, JANE/SILVER Unavailable [address] + [place] [address] D Unavailable Unavailable Unavailable MORTEZA CANNON Unavailable [address] + [place] [address] RICKEYBAMELISSA, JANE/SILVER Unavailable [address] + [place] [address] D Unavailable Unavailable Unavailable MORTEZA CANNON Unavailable [address] + [place] [address] NELLI, JANE/SILVER Unavailable [address] + [place] [address] D Unavailable Unavailable Unavailable MORTEZA CANNON Unavailable [address] + [place] [address] RICKEYBAMELISSA, JANE/SILVER Unavailable [address] + [place] [address] D Unavailable Unavailable Unavailable MORTEZA CANNON Unavailable [address] + [place] [address] BUTTERBAUGH, JANE/SILVER Unavailable [address] + [place] [address] D Unavailable Unavailable Unavailable DAVISMORTEZA Unavailable [address] + [place] [address] NELLI, JANE/SILVER Unavailable [address] + [place] [address] D Unavailable Unavailable Unavailable DAVISMORTEZA Unavailable [address] + [place] [address] NELLI, JANE/SILVER Unavailable [address] + [place] [address] D Unavailable Unavailable Unavailable DAVIS, MORTEZA Unavailable [address] + [place] [address] NELLI, JANE/SILVER Unavailable [address] + [place] [address] D Unavailable Unavailable Unavailable DAVISMORTEZA Unavailable [address] + [place] [address] NELLI, JANE/SILVER Unavailable [address] + [place] [address] D Unavailable Unavailable Unavailable DAVIS, MORTEZA Unavailable [address] + [place] [address] NELLI, JANE/SILVER Unavailable [address] + [place] [address] D Unavailable Unavailable Unavailable DAVISMORTEZA Unavailable [address] + [place] [address] RICKEYRADHAMELISSA JANE/SILVER Unavailable [address] + [place] [address] D Unavailable Unavailable Unavailable DAVISMORTEZA Unavailable [address] + [place] [address] RICKEYBAMELISSA, JANE/SILVER Unavailable [address] + [place] [address] D Unavailable Unavailable Unavailable DAVIS, MORTEZA Unavailable [address] + [place] [address] RICKEYBAMELISSA, JANE/SILVER Unavailable [address] + [place] [address] D Unavailable Unavailable Unavailable DAVISMORTEZA Stewart Unavailable [address] + [place] [address] HIWOT AIKENRA/SILVER Unavailable [address] + [place] [address] D Unavailable Unavailable Unavailable DAVIS MORTEZA Unavailable [address] + [place] [address] HIWOT AIKENRA/SILVER Unavailable [address] + [place] [address] D Unavailable Unavailable Unavailable MORTEZA CANNON Unavailable [address] + [place] [address] HIWOT AIKENRA/SILVER Unavailable [address] + [place] [address] D Unavailable Unavailable Unavailable DAVIS MORTEZA Unavailable [address] + [place] [address] NELLI JANE/SILVER Unavailable [address] + [place] [address] D Unavailable Unavailable Unavailable DAVIS MORTEZA Unavailable [address] + [place] [address] NELLI JANE/SILVER Unavailable [address] + [place] [address] D Unavailable Unavailable Unavailable DAVIS MORTEZA Unavailable [address] + [place] [address] NELLI JANE/SILVER Unavailable [address] + [place] [address] D Unavailable Unavailable Unavailable DAVIS MORTEZA Unavailable [address] + [place] [address] Care Team Providers Name Role Phone SAPNA WYATT Admitting Unavailable SAPNA WYATT Attending Unavailable ADIEL GOMEZ Consulting Unavailable LISSETH CLAUDIO Referring Unavailable KEM ANDUJAR Attending Unavailable KEM ANDUJAR Referring Unavailable LISSETH CLAUDIO Referring Unavailable GUILLAUME ALICEA Referring Unavailable HEIDE, LISSETH S Referring Unavailable HEIDE, LISSETH S Referring Unavailable BELLAKEM Calixto R Attending Unavailable BELLAKEM Referring Unavailable HEIDE, LISSETH S Referring Unavailable PROCK, LISSETH A Admitting Unavailable IGNACIO NOVAK (RES) Attending Unavailable PARAMBIL, GUILLAUME Referring Unavailable PARAMBIL, GUILLAUME Attending Unavailable PARAMBIL, GUILLAUME Referring Unavailable AKHIL HOWARD (SALES DEVELOPMENT CONSULTANT) Attending Unavailable HEIDE, LISSETH S Referring Unavailable DOMINIQUE WRIGHT Attending Unavailable AUSTEN CHOUDHURY R Admitting Unavailable AMEENA MENDEZ Attending Unavailable HEIDE, LISSETH S Referring Unavailable ROS CHRISTIE Admitting Unavailable RANJAN MITCHELL Attending Unavailable ABOUSSOUAN, LOUTFI S Referring Unavailable ABOUSSOUAN, LOUTFI S Referring Unavailable HEIDE, LISSETH S Referring Unavailable HEIDE, LISSETH S Referring Unavailable ALAPPAN, NARENDRAKUMAR Admitting Unavailable BANDARZHOU Francisco Attending Unavailable ALAPPAN, NARENDRAKUMAR Admitting Unavailable BRENDA HOUSTON Attending Unavailable MARI NOVA (CY) Referring Unavailable ALAPPAN, NARENDRAKUMAR Admitting Unavailable TONELLI, AUSETN R Attending Unavailable DAYSI GARCÍA Referring Unavailable ALAPPAN, NARENDRAKUMAR Admitting Unavailable AUSTEN CHOUDHURY Attending Unavailable HEIDE, LISSETH S Referring Unavailable HEIDE, LISSETH S Referring Unavailable ALAPPAN, NARENDRAKUMAR Admitting Unavailable BANDARZHOU Francisco Attending Unavailable HEIDE, LISSETH S Referring Unavailable GAEL VIEIRA Admitting Unavailable GAEL VIEIRA Attending Unavailable JOSE NAVA Admitting Unavailable ROS WAYNE Attending Unavailable ABOUSSOUAN, LOUTFI S Referring Unavailable ABOUSSOUAN, LOUTFI S Referring Unavailable DAYSI BYNUM (SALES DEVELOPMENT CONSULTANT) Referring Unavailable ABOUSSOUAN, LOUTFI S Referring Unavailable SWANSON, ANDREW Referring Unavailable SWANSON, ANDREW Referring Unavailable HEIDE, LISSETH S Referring Unavailable ABRIL CHRISTINE Attending Unavailable KEM ANDUJAR Attending Unavailable HARRIET SAN Referring Unavailable PEYTON ROGERS Attending Unavailable ROS WAYNE Referring Unavailable HEIDE, LISSETH S Referring Unavailable KEM ANDUJAR Attending Unavailable KEM ANDUJAR R Referring Unavailable HEIDE, LISSETH S Referring Unavailable KEM ANDUJAR Attending Unavailable CHANO MOLINA, MAGDALENA (SALES DEVELOPMENT CONSULTANT) Attending Unavailable CHANO JESSE, MAGDALENA (SALES DEVELOPMENT CONSULTANT) Referring Unavailable CHANO JESSE, MAGDALENA (SALES DEVELOPMENT CONSULTANT) Referring Unavailable CHANO JESSE, MAGDALENA (SALES DEVELOPMENT CONSULTANT) Referring Unavailable EHIDE, LISSETH S Referring Unavailable WIYOT, KWESI K Admitting Unavailable ALEJANDRO MADDEN) Attending Unavailable CHANO MOLINA, MAGDALENA (SALES DEVELOPMENT CONSULTANT) Referring Unavailable HEIDE, LISSETH S Referring Unavailable BRADSHAW, BIRD M Referring Unavailable BRADSHAW, BIRD M Referring Unavailable WIYOT, KWESI K Referring Unavailable WIYOT, KWESI K Referring Unavailable HEIDE, LISSETH S Referring Unavailable ALFRED, ALI Referring Unavailable HEIDE, LISSETH S Referring Unavailable HEIDE, LISSETH S Referring Unavailable YAMIL CHAVES ([facility]) Referring Unavailable CHANO JESSE, MAGDALENA (SALES DEVELOPMENT CONSULTANT) Referring Unavailable HEIDE, LISSETH S Referring Unavailable ABRIL CHRISTINE Attending Unavailable ALEJANDRO MADDEN) Referring Unavailable BRADSHAW, BIRD M Admitting Unavailable JUSTO CADET Attending Unavailable HEIDE, LISSETH S Referring Unavailable ISHAAN BYRNE Attending Unavailable KUMIKEY DARBY Referring Unavailable COLINLINNETTE Attending Unavailable LINNETTE COLIN Referring Unavailable GANTA, PEYTON Attending Unavailable GANTA, PEYTON Referring Unavailable HEIDE, LISSETH S Referring Unavailable [place] HULL Admitting Unavailable KYM MONTOGMERY) Attending Unavailable HEIDE, LISSETH S Referring Unavailable WILLARD MARTÍNEZ Admitting Unavailable VALENTINAKYM) Attending Unavailable HEIDE, LISSETH S Referring Unavailable NEGRITO LUCERO (RES) Attending Unavailable GAEL SIMMONS Referring Unavailable GALDINO ZEE Attending Unavailable ETHAN [place] Admitting Unavailable ETHANESTELA Attending Unavailable HEIDE, LISSETH S Referring Unavailable Ganta, Peyton Primary Care Unavailable Malaika Chinchilla Attending Unavailable Ganta, Peyton Primary Care Unavailable MARY CHIRINOS Attending Unavailable Ganta, Peyton Primary Care Unavailable Magdalena Lewis Attending Unavailable Chano-Jesse, Magdalena Referring Unavailable MARY CHIRINOS Attending Unavailable Ganta, Peyton Primary Care Unavailable MARY CHIRINOS Referring Unavailable Ganta, Peyton Primary Care Unavailable Magdalena Lewis Attending Unavailable Debbie, Magdalena Referring Unavailable Zachary Lewisra Attending Unavailable Chano-Jesse, Magdalena Referring Unavailable Ganta, Peyton Primary Care Unavailable Chano-Jesse, [place]dalena Attending Unavailable Chano-Jesse, Magdalena Referring Unavailable Ganta, Peyton Primary Care Unavailable Chano-Jesse, [place] Attending Unavailable Chano-Jesse, Magdalena Referring Unavailable Ganta, Peyotn Primary Care Unavailable Chano-Jesse, [place]dalena Attending Unavailable Chano-Jesse, Magdalena Referring Unavailable Ganta, Peyton Primary Care Unavailable Chano-Jesse, Amgdalena Attending Unavailable Chano-Jesse, Magdalena Referring Unavailable Ganta, [...] Referring Unavailable Ganta, Peyton Primary Care Unavailable Mitch Buchanan Attending Unavailable Cricket, Lydia Referring Unavailable Ganta, Peyton Primary Care Unavailable Lydia Harley Attending Unavailable Chano-Jesse, Magdalena Attending Unavailable Chano-Jesse, Magdalena Referring Unavailable Ganta, Peyton Primary Care Unavailable Chano-Jesse, [place]dalena Attending Unavailable Chano-Jesse, [place]dalena Referring Unavailable Ganta, Peyton Primary Care Unavailable Ganta, Peyton Primary Care Unavailable Chano-Jesse, [place] Attending Unavailable Chano-Jesse, [place]dalena Referring Unavailable Ganta, Peyton Primary Care Unavailable Chano-Jesse, [place] Attending Unavailable MARY CHIRINOS Attending Unavailable Ganta, Peyton Primary Care Unavailable Chano-Jesse, [place] Attending Unavailable Chano-Jesse, [place]dalena Referring Unavailable Ganta, Peyton Primary Care Unavailable Chano-Jesse, [place] Attending Unavailable Chano-Jesse, [place]dalena Referring Unavailable Ganta, Peyton Primary Care Unavailable Ganta, Peyton Primary Care Unavailable WILFRED LUCAS Attending Unavailable Ganta, Peyton Primary Care Unavailable Fany Littlejohn Attending Unavailable Chano-Jesse, [place] Attending Unavailable Ganta, Peyton Primary Care Unavailable Chano-Jesse, Magdalena Attending Unavailable Chano-Jesse, Magdalena Referring Unavailable Ganta, Peyton Primary Care Unavailable Chaon-Jesse, Magdalena Attending Unavailable Chano-Jesse, [place]dalena Referring Unavailable Ganta, Peyton Primary Care Unavailable Ganta, Peyton Referring Unavailable Ganta, Peyton Primary Care Unavailable Chano-Jesse, Magdalena Attending Unavailable Chano-Jesse, Magdalena Attending Unavailable Chano-Jesse, Magdalena Referring Unavailable Ganta, Peyton Primary Care Unavailable Ganta, Peyton Primary Care Unavailable Lydia Harley Unavailable Chano-Jesse, Magdalena Attending Unavailable Chano-Jesse, Magdalena Referring Unavailable Ganta, Peyton Primary Care Unavailable Ganta, Peyton Primary Care Unavailable Chano-Jesse, Magdalena Attending Unavailable Chano-Jesse, Magdalena Referring Unavailable Chano-Jesse, [place]dalena Attending Unavailable Chano-Jesse, Magdalena Referring Unavailable Ganta, Peyton Primary Care Unavailable MARY CHIRINOS Attending Unavailable Ganta, Peyton Primary Care Unavailable MARY CHIRINOS Referring Unavailable Ganta, Peyton Primary Care Unavailable Chano-Jesse, Magdalena Attending Unavailable Chano-Jesse, Madgalena Referring Unavailable Ganta, Peyton Primary Care Unavailable MARY CHIRINOS Referring Unavailable MARY CHIRINOS Attending Unavailable Chano-Jesse, Magdalena Attending Unavailable Chano-Jesse, Magdalena Referring Unavailable Ganta, Peyton Primary Care Unavailable Ros aNm Attending Unavailable WILFRED LUCAS Referring Unavailable Chano-Jesse, Magdalena Attending Unavailable Chano-Jesse, [...] Primary Care Unavailable Chano-Jesse, Magdalena Attending Unavailable PROBLEMS PROBLEMS DATE TYPE CONDITION / CODE ATTENDING STATUS SOURCE 06/22/2018 Active 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 unspecified [facility] Main part of left lower [place] leg with fat layer Repository exposed / L97.922(ICD-10) 06/06/2018 Active Hemoperitoneum / KYM MONTGOMERY Active [facility] K66.1(ICD-10) () Clinic Main [place] Repository 06/06/2018 Active Other disorders of VALENTINAKYM Terry Active [facility] calcium metabolism / () [facility] Main E83.59(ICD-10) [place] Repository 06/06/2018 Active Obesity, unspecified VALENTINAKYM Terry Active [facility] / E66.9(ICD-10) () [facility] Main [place] Repository 05/14/2018 Active Pain in right leg / KYM MONTGOMERY Active [facility] M79.604(ICD-10) () Clinic Main [place] Repository 05/14/2018 Active Other disturbances of VALENTINA, KYM Active [facility] skin sensation / () Clinic Main R20.8(ICD-10) [place] Repository 05/06/2018 Active Unspecified abdominal KALI, ISHAAN Active [facility] pain / R10.9(ICD-10) Clinic Main [place] Repository 04/28/2018 Active Nausea with vomiting, JANCOSME, Active [facility] unspecified / VARALAKSHMI Clinic Main R11.2(ICD-10) [place] Repository 05/21/2018 Unknown M79.662 - Pain in Ros Nam Active [facility] left lower leg / [facility] M79.662(ICD-10) Hospital Repository 05/23/2018 Unknown M79.606 - Pain in WILFRED LUCAS Active [place] leg, unspecified / [facility] M79.606(ICD-10) Hospital Repository 04/03/2018 Active Unspecified open ALEJANDRO MADDEN Active [facility] wound of abdominal () Clinic Main wall, unspecified [place] quadrant without Repository penetration into peritoneal cavity, sequela / S31.109S(ICD-10) 04/03/2018 Active Mild protein-calorie ALEJANDRO MADDEN Active [facility] malnutrition / () Clinic Main E44.1(ICD-10) [place] Repository 04/02/2018 Active Antiphospholipid ALEJANDRO MADDEN Active [facility] syndrome / () [facility] Main D68.61(ICD-10) [place] Repository 03/25/2018 Active penitentiary (current) ALEJANDRO MADDEN Active [facility] use of anticoagulants () Clinic Main / Z79.01(ICD-10) [place] Repository 03/25/2018 Active Encounter for ALEJANDRO MADDEN Active [facility] therapeutic drug () Clinic Main level monitoring / [place] Z51.81(ICD-10) Repository 03/15/2018 Active Chronic kidney ALEJANDRO MADDEN Active [facility] disease, stage 3 () Clinic Main (moderate) / [place] N18.3(ICD-10) Repository 03/15/2018 Active 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 / () Clinic Main D68.59(ICD-10) [place] Repository 03/15/2018 Active Acute embolism and ALEJANDRO MADDEN Active [facility] thrombosis of () Clinic Main inferior vena cava / [place] I82.220(ICD-10) Repository 03/15/2018 Active Peripheral vascular ALEJANDRO MADDEN Active [facility] disease, unspecified () Clinic Main / I73.9(ICD-10) [place] Repository 03/11/2018 Active Unspecified ALEJANDRO MADDEN Active [facility] protein-calorie () Clinic Main malnutrition / [place] E46(ICD-10) Repository 03/11/2018 Active Personal history of ALEJANDRO MADDEN Active [facility] other venous () Clinic Main thrombosis and [place] embolism / Repository Z86.718(ICD-10) 03/11/2018 Active Unspecified ALEJANDRO MADDEN Active [facility] infectious disease / () [facility] Main B99.9(ICD-10) [place] Repository 03/11/2018 Active Cellulitis of other ALEJANDRO MADDEN Active [facility] sites / () Clinic Main L03.818(ICD-10) [place] Repository 03/11/2018 Active Morbid (severe) ALEJANDRO MADDEN Active [facility] obesity due to excess () Clinic Main calories / [place] E66.01(ICD-10) Repository 03/10/2018 Active 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) / [place] D75.82(ICD-10) Repository 02/18/2018 Active Pain in left leg / ALEJANDRO MADDEN Active [facility] M79.605(ICD-10) () Clinic Main [place] Repository 01/22/2018 Active Pain in leg, ALEJANDRO MADDEN Active [facility] unspecified / (MD) Clinic Main M79.606(ICD-10) [place] Repository 01/22/2018 Active Chronic kidney ALEJANDRO MADDEN Active [facility] disease, stage 4 (MD) Clinic Main (severe) / [place] N18.4(ICD-10) Repository 01/22/2018 Active 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 / (MD) Clinic Main I42.8(ICD-10) [place] Repository 01/22/2018 Active Acute kidney failure ALEJANDRO MADDEN Active [facility] with tubular necrosis () Clinic Main / N17.0(ICD-10) [place] Repository 01/22/2018 Active Transfusion ALEJANDRO MADDEN Active [facility] associated () [facility] Main circulatory overload [place] / E87.71(ICD-10) Repository 01/22/2018 Active Sepsis, unspecified ALEJANDRO MADDEN Active [facility] organism / (MD) Clinic Main A41.9(ICD-10) [place] Repository 01/22/2018 Active Severe sepsis with ALEJANDRO MADDEN Active [facility] septic shock / () [facility] Main R65.21(ICD-10) [place] Repository 01/22/2018 Active Shock, unspecified / ALEJANDRO MADDEN Active [facility] R57.9(ICD-10) (MD) Clinic Main [place] Repository 01/22/2018 Active Cellulitis of left ALEJANDRO MADDEN Active [facility] lower limb / () Clinic Main L03.116(ICD-10) [place] Repository 01/22/2018 Active Hypo-osmolality and ALEJANDRO MADDEN Active [facility] hyponatremia / () Clinic Main E87.1(ICD-10) [place] Repository 01/22/2018 Active Other disorders of ALEJANDRO MADDEN Active [facility] phosphorus metabolism () Clinic Main / E83.39(ICD-10) [place] Repository 01/22/2018 Active Cutaneous abscess of ALEJANDRO MADDEN Active [facility] left lower limb / () Clinic Main L02.416(ICD-10) [place] Repository 01/22/2018 Active Chronic systolic ALEJANDRO MADDEN Active [facility] (congestive) heart () Clinic Main failure / [place] I50.22(ICD-10) Repository 01/22/2018 Active Disorder of NA Active [facility] pigmentation, Clinic Main unspecified / [place] L81.9(ICD-10) Repository 01/22/2018 Active Anesthesia of skin / NA Active [facility] R20.0(ICD-10) Clinic Main [place] Repository 01/22/2018 Active Paresthesia of skin / NA Active [facility] R20.2(ICD-10) Clinic Main [place] Rep[facility] 01/12/2018 Unknown Z79.01 - penitentiary Debbie, Active [facility] (current) use of [facility] anticoagulants / Hospital Z79.01(ICD-10) Repository 01/05/2018 Unknown D68.61 - Debbie, Active [place] Antiphospholipid [facility] syndrome / Hospital D68.61(ICD-10) Repository 12/15/2017 Active Unspecified ROS WAYNE Active [facility] atherosclerosis of Clinic Main [place] arteries of [place] extremities, Repository unspecified extremity / I70.209(ICD-10) 12/15/2017 Active Abnormal coagulation ROS WAYNE Active [facility] profile / [facility] Main R79.1(ICD-10) [place] [facility] 12/15/2017 Active Personal history of ROS WAYNE Active [facility] diseases of the blood [facility] Main and blood-forming [place] organs and certain Repository disorders involving the immune mechanism / Z86.2(ICD-10) 12/15/2017 Active Shortness of breath / ROS WAYNE Active [facility] R06.02(ICD-10) Clinic Main [place] Rep[facility] 12/01/2017 Active Left lower quadrant ROS WAYNE Active [facility] pain / R10.32(ICD-10) Clinic Main [place] [facility] 12/04/2017 Active Pneumonia, ROS WAYNE Active [facility] unspecified organism Clinic Main / J18.9(ICD-10) [place] [facility] 12/04/2017 Active Secondary ROS WAYNE Active [facility] hypertension, Clinic [facility] unspecified / [place] I15.9(ICD-10) Repository 12/04/2017 Active Other reduced ROS WAYNE Active [facility] mobility / [facility] Main Z74.09(ICD-10) [place] [facility] 12/04/2017 Active Pneumonia due to ROS WAYNE Active [facility] methicillin Clinic Main susceptible [place] Staphylococcus aureus Repository / J15.211(ICD-10) 12/04/2017 Active Pneumonia due to ROS WAYNE Active [facility] hemophilus influenzae Clinic Main / J14(ICD-10) [place] [facility] 12/04/2017 Active Personal history of ROS WAYNE Active [facility] other infectious and [facility] Main parasitic diseases / [place] Z86.19(ICD-10) Repository 12/01/2017 Active Other symptoms and BANDAR, ZHOU Bass signs involving the Clinic Main musculoskeletal [place] system / Repository R29.898(ICD-10) 12/01/2017 Active Pneumonia due to BANDAR, ZHOU Bass other gram-negative Clinic [facility] bacteria / [place] J15.6(ICD-10) Repository 12/01/2017 Active Hemoptysis / BANDAR, ZHOU Bass R04.2(ICD-10) [facility] [place] Rep[facility] 12/01/2017 Active Acute kidney failure, BANDAR, ZHOU [facility] unspecified / [facility] N17.9(ICD-10) [place] Rep[facility] 10/25/2017 Active Thrombocytopenia, BANDAR, ZHOU [facility] unspecified / [facility] D69.6(ICD-10) [place] Rep[facility] 10/25/2017 Active Dependence on renal BANDAR, ZHOU Bass dialysis / [facility] Z99.2(ICD-10) [place] Rep[facility] 10/25/2017 Active Renovascular BANDAR, ZHOU Bass hypertension / [facility] I15.0(ICD-10) [place] Rep[facility] 10/25/2017 Active Polyneuropathy in BANDAR, ZHOU Bass diseases classified Clinic [facility] elsewhere / [place] G63(ICD-10) Repository 10/25/2017 Active Generalized edema / BANDAR, ZHOU Bass R60.1(ICD-10) [facility] [place] Rep[facility] 10/25/2017 Active Other malaise / BANDAR, ZHOU Bass R53.81(ICD-10) Clinic [facility] [place] Rep[facility] 10/25/2017 Active Unsteadiness on feet BANDAR, ZHOU Bass / R26.81(ICD-10) [facility] [place] Rep[facility] 10/25/2017 Active Other specified BANDAR, ZHOU Bass disorders of muscle / [facility] M62.89(ICD-10) [place] Rep[facility] 10/25/2017 Active Low back pain / BANDAR, ZHOU Bass M54.5(ICD-10) [facility] [place] Rep[facility] 10/25/2017 Active Lymphedema, not BANDAR, ZHOU Bass elsewhere classified Clinic Main / I89.0(ICD-10) [place] Rep[facility] 10/23/2017 Active Hemorrhage, not EDMUNDO, SAPNA Jaimie [facility] elsewhere classified Clinic Other / R58(ICD-10) [place] Rep[facility] 10/23/2017 Active Acute posthemorrhagic SAPNA WYATT Active [facility] anemia / D62(ICD-10) Clinic Other [place] Rep[facility] 10/23/2017 Active Acute embolism and SAPNA WYATT Active [facility] thrombosis of Clinic Other unspecified deep [place] veins of unspecified Repository lower extremity / I82.409(ICD-10) 10/23/2017 Active Unspecified diastolic SAPNA WYATT Active [facility] (congestive) heart Clinic Other failure / [place] I50.30(ICD-10) Repository 10/23/2017 Active Acute respiratory SAPNA WYATT Active [facility] failure with hypoxia Clinic Other / J96.01(ICD-10) [place] Rep[facility] 10/23/2017 Active Essential (primary) SAPNA WYATT Active [facility] hypertension / Clinic Other I10(ICD-10) [place] Rep[facility] 10/23/2017 Active Mononeuropathy, SAPNA WYATT Active [facility] unspecified / Clinic Other G58.9(ICD-10) [place] Rep[facility] 10/22/2017 Active Embolism and RANJAN MITCHELL Active [facility]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 Main vein / I82.3(ICD-10) [place] Rep[facility] 10/22/2017 Active Hemorrhage from other JANICE MITCHELLIT Active [facility] sites in respiratory [facility] passages / [place] R04.89(ICD-10) Repository 10/13/2017 Active Other chest pain / MITCHELLJANICEIT Active [facility] R07.89(ICD-10) Clinic Main [place] Rep[facility] 10/13/2017 Active Foot drop, left foot RANJAN MITCHELL Active [facility] / M21.372(ICD-10) Clinic Main [place] Rep[facility] 10/24/2017 Unknown R04.89 - Hemorrhage DewayneMitch neumann Active [facility] from other sites in [facility] respiratory passages Hospital / R04.89(ICD-10) Repository 10/24/2017 Unknown J80 - Acute Dewayne, Mitch Active [facility] respiratory distress [facility] syndrome / Hospital J80(ICD-10) Repository 10/24/2017 Unknown N17.9 - Acute kidney Dewayne, Mitch Active [facility] failure, unspecified Community / N17.9(ICD-10) Hospital Repository 10/24/2017 Unknown D64.9 - Anemia, Dewayne, Mitch Active [facility] unspecified / Community D64.9(ICD-10) Hospital Repository 10/24/2017 Unknown D69.6 - Mitch Buchanna Active [facility] Thrombocytopenia, Community unspecified / Hospital D69.6(ICD-10) Repository 10/24/2017 Unknown Z86.718 - Personal DewayneMitch neumann Active [facility] history of other Community venous thrombosis and Hospital embolism / Repository Z86.718(ICD-10) 10/24/2017 Unknown I10 - Essential DewayneMitch neumann Active [facility] (primary) [facility] hypertension / Hospital I10(ICD-10) Repository 10/24/2017 Unknown E66.01 - Morbid Mitch Buchanan Active [facility] (severe) obesity due Community to excess calories / Hospital E66.01(ICD-10) Repository 10/24/2017 Unknown J30.9 - Allergic DewayneMitch neumann Active [facility] rhinitis, unspecified Community / J30.9(ICD-10) Hospital Repository 10/24/2017 Unknown K21.9 - Mitch Buchanan Active [facility] Gastro-esophageal [facility] reflux disease Hospital without esophagitis / Repository K21.9(ICD-10) 10/05/2017 Active Dysuria / ANDREA, AMEENA Active [facility] R30.0(ICD-10) Clinic Main [place] Rep[facility] 08/28/2017 Active Systemic inflammatory ANDREA, AMEENA Active [facility] response syndrome [facility] (sirs) of [place] non-infectious origin Repository without acute organ dysfunction / R65.10(ICD-10) 03/12/2017 Active Pulmonary ANDREA, AMEENA Active [facility] hypertension, Clinic Main unspecified / [place] I27.20(ICD-10) Repository 03/12/2017 Active Acute and chronic ANDREA, AMEENA Active [facility] respiratory failure Clinic Main with hypoxia / [place] J96.21(ICD-10) Repository 09/29/2017 Active Hypoxemia / ANDREA, AMEENA Active [facility] R09.02(ICD-10) Clinic Main [place] Rep[facility] 09/29/2017 Active Polyneuropathy, ANDREA, AMEENA Active [facility] unspecified / Clinic Main G62.9(ICD-10) [place] Rep[facility] 08/29/2017 Active Bacteremia / SCARLETIGNACIO RAMIREZ Active [facility] R78.81(ICD-10) (RES) Clinic Main [place] Rep[facility] 08/28/2017 Active Generalized skin SCARLETIGNACIO Active [facility] eruption due to drugs (RES) Clinic Main and medicaments taken [place] internally / Repository L27.0(ICD-10) 08/28/2017 Active Sepsis due to IGNACIO NOVAK Active [facility] Enterococcus / (RES) Clinic Main A41.81(ICD-10) [place] Rep[facility] 08/27/2017 Active Unspecified severe SCARLETIGNACIO RAMIREZ Active [facility] protein-calorie (RES) Clinic [facility] malnutrition / [place] E43(ICD-10) Repository 08/25/2017 Active Other pancytopenia / SCARLETIGNACIO RAMIREZ Active [facility] D61.818(ICD-10) (RES) Clinic Main [place] Rep[facility] 08/25/2017 Active Fever, unspecified / SCARLETIGNACIO RAMIREZ Active [facility] R50.9(ICD-10) (RES) Clinic Main [place] Rep[facility] 08/25/2017 Active Enterocolitis due to SCARLETIGNACIO RAMIREZ Active [facility] Clostridium (RES) Clinic Main difficile, recurrent [place] / A04.71(ICD-10) Repository 08/25/2017 Active Unspecified SCARLETIGNACIO RAMIREZ Active [facility] streptococcus as the (RES) Clinic Main cause of diseases [place] classified elsewhere Repository / B95.5(ICD-10) 08/25/2017 Active Enterocolitis due to SCARLETIGNACIO RAMIREZ Active [facility] Clostridium (RES) Clinic Main difficile, not [place] specified as Repository recurrent / A04.72(ICD-10) 08/25/2017 Active Fever presenting with IGNACIO NOVAK Active [facility] conditions classified (RES) Clinic Main elsewhere / [place] R50.81(ICD-10) Repository 08/25/2017 Active Other specified IGNACIO NOVAK Active [facility] health status / (RES) Clinic Main Z78.9(ICD-10) [place] Rep[facility] 07/19/2017 Active Unknown / NA Active [facility] UNK(Unknown) Clinic Main [place] Repository 06/05/2018 Unknown 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 However patient's pain was treated [...] to calciphylaxis This note was generated with Building[employer] dictation software. It may contain incorrect words, [...] problems, contact your Primary Care Provider. Call [facility] ([phone]) or report to the closest Emergency Room. Call 911 if necessary. 06/20/18 0038 <Electronically signed by Malaika Chinchilla MD> Date Malaika Chinchilla MD Cosigner Signature (If Indicated): Date CC: Peyton Rogers MD DISCHARGE INSTRUCTION Observed: 06/20/2018 Status: F Source: [place] 12:38 AM [facility] Medical Records Department [address] [place] [address] Discharge Instruction 06/19/18 2323 MR#: [id number] Acct: [id number] Name: PALOMA CANNON Rep #: [id number] : 1990 28 From: Malaika Chinchilla MD [...] your Primary Care Provider. Call [facility] ([phone]) or report to the closest Emergency Room. Call 911 if necessary. 06/20/18 0038 <Electronically signed by Malaika Chinchilla MD> Date Malaika Chinchilla MD Cosigner Signature (If Indicated): Date CC: Peyton Rogers MD PROTHROMBIN TIME W/INR Collected: 06/19/2018 Status: F Source: [place] 10:44 PM [facility] TYPE CODE TESTS RESULT OUT OF RANGE REFERENCE UNITS LAB L300.4150 11.7-14.9 SECONDS High PROTIME 22.2 LAB L300.4200 Normal INR 1.9 Performed By: #### L300.3900 #### [facility] [address] [place], [address] PROTHROMBIN TIME W/INR Collected: 06/18/2018 Status: F Source: [place] 8:23 AM [facility] TYPE CODE TESTS RESULT OUT OF RANGE REFERENCE UNITS LAB L300.4150 11.7-14.9 SECONDS High PROTIME 19.2 LAB L300.4200 Normal INR 1.6 Performed By: #### L300.3900 #### [facility] [address] [place], [address] PROTHROMBIN TIME W/INR Collected: 06/15/2018 Status: F Source: [place] 8:49 AM [facility] TYPE CODE TESTS RESULT OUT OF RANGE REFERENCE UNITS LAB L300.4150 11.7-14.9 SECONDS High PROTIME 20.9 LAB L300.4200 Normal INR 1.8 Performed By: #### L300.3900 #### [facility] [address] [place], [address] EMERGENCY DEPARTMENT Observed: 06/10/2018 Status: F Source: [place] SUMMARY 3:45 AM [facility] Medical Records Department [address] [place] [address] Emergency Department Summary 06/10/18 0143 MR#: [id number] Acct: [id number] Name: PALOMA CANNON Rep #: [id number] : 1990 28 From: Wilfred Lucas MD [...] she is due for another treatment at [facility] in just over 24 hours from now. She presents now because her oxycodone has not really the chronic pain that she has in her back that she associates with the retroperitoneal hematoma. She states in [facility], they have told her that it is [...] She states when she was transferred to [facility] several days ago, they evaluated her with [...] your Primary Care Provider. Call [facility] ([phone]) or report to the closest Emergency Room. Call 911 if necessary. 06/10/18 0345 <Electronically signed by Wilfred Lucas MD> Date Wilfred Lucas MD Cosigner Signature (If Indicated): Date CC: Peyton Rogers MD CBC-COMPLETE BLOOD CNT Collected: 06/10/2018 Status: F Source: [place] NO DIFF 2:00 AM [facility] TYPE CODE TESTS RESULT OUT OF [...] MPV 10.1 Performed By: #### L100.0500 #### [facility] [address] [place], [place], [address] PROTHROMBIN TIME W/INR Collected: 06/10/2018 Status: F Source: [place] 2:00 AM [facility] TYPE CODE TESTS RESULT OUT OF RANGE REFERENCE UNITS LAB L300.4150 11.7-14.9 SECONDS High PROTIME 26.6 LAB L300.4200 Normal INR 2.4 Performed By: #### L300.3900 #### [facility] [address] [place], [address] BASIC METABOLIC Collected: 06/10/2018 Status: F Source: [place] PROFILE (BMP) 2:00 AM [facility] TYPE CODE TESTS RESULT OUT OF [...] GAP 6 Performed By: #### L500.2500 #### [facility] [address] [place], [address] ABDOMEN/PELVIS WITHOUT Observed: 06/10/2018 Status: F Source: [place] CONT 1:44 AM [facility] Imaging Services [address] [place] [address] Abdomen/Pelvis without Cont MR#: [id number] Acct: [id number] Name: PALOMA CANNON Rep #: [id number] : 1990 F 28 From: Zhou Lowe MD PCP: Peyton Rogers MD Status: REG ER Study: Abdomen/Pelvis without Cont Date of Exam: 06/10/18 Exam# [id number] Ordering Dr: Wilfred Lucas MD HISTORY: LT SIDED ABDOMEN PAIN WITH SHOCKS DOWN HER LEGS,PT HAS REOCCURING RETROPERITONEAL [facility]EMATOMA,[facility]CLOTTING DISORDER-ANTIPHOSPHOLIPID ANTIBODY SYNDROMESURGERY:CHOLECYSTECTOMY,ABDOMINAL STENT TECHNIQUE: Helically [...] CC: WILFRED LUCAS MD; Peyton Rogers MD Dopeman: Signed PROTHROMBIN TIME W/INR Collected: 06/08/2018 Status: F Source: [place] 10:30 AM [facility] TYPE CODE TESTS RESULT OUT OF RANGE REFERENCE UNITS LAB L300.4150 11.7-14.9 SECONDS High PROTIME 22.2 LAB L300.4200 Normal INR 1.9 Performed By: #### L300.3900 #### [facility] [address] [place], [address] EMERGENCY DEPARTMENT Observed: 06/04/2018 Status: F Source: [place] SUMMARY 11:12 PM [facility] Medical Records Department [address] [place] [address] Emergency Department Summary 06/04/182051 MR#: [id number] Acct: [id number] Name: PALOMA CANNON Rep #: [id number] : 1990 28 From: Fany Littlejohn MD PCP: Peyton Rogers MD Status: REG ER - ER Visit Summary Date of Service: 06/04/18 Chief Complaint: Left flank pain History of Present Illness: The patient is a 28 F with history of antiphospholipid antibody who is on Coumadin and gets plasmapheresis through the [facility] presents to the emergency department with left [...] was accepted. She will be transferred to [facility] for definitive care of her recurrent retroperitoneal hematoma. Treatment Plan: [] Disposition: Transferred Impression: 1. Recurrent left retroperitoneal hematoma 2. History of antiphospholipid antibody syndrome This note was generated with Building[employer] dictation software. It may contain incorrect words, [...] your Primary Care Provider. Call [facility] ([phone]) or report to the closest Emergency Room. Call 911 if necessary. 06/04/18 2312 <Electronically signed by Fany Littlejohn MD> Date Fany Littlejohn MD Cosigner Signature (If Indicated): Date CC: Peyton Rogers MD URINALYSIS, COMPLETE Collected: 06/04/2018 Status: F Source: [place] 10:15 PM [facility] Order Comment: Order Date: 06/04/18 How [...] URINE SEEN Performed By: #### L400.0001 #### [facility] [address] [place], [address] COMPREHENSIVE METABOLIC Collected: 06/04/2018 Status: F Source: [facility] 8:59 PM [facility] TYPE CODE TESTS RESULT OUT OF [...] GAP 5 Performed By: #### L500.4050 #### [facility] [address] [place], [address] LACTIC ACID Collected: 06/04/2018 Status: F Source: [place] 8:59 PM [facility] Order Comment: Yes/No query for Sepsis Lactate Rule Y TYPE CODE TESTS RESULT OUT OF RANGE REFERENCE UNITS LAB L503.6005 0.4-2.0 mmol/L Normal LACTIC ACID 1.3 Performed By: #### L503.6005 #### [facility] [address] [place], [address] CBC W/DIFF, AUTOMATED Collected: 06/04/2018 Status: F Source: [place] 8:59 PM [facility] TYPE CODE TESTS RESULT OUT OF [...] LYMPHOPENIA NOTED Performed By: #### L100.0100 #### [facility] [address] [place], [address] PROTHROMBIN TIME W/INR Collected: 06/04/2018 Status: F Source: [place] 8:59 PM [facility] TYPE CODE TESTS RESULT OUT OF RANGE REFERENCE UNITS LAB L300.4150 11.7-14.9 SECONDS High PROTIME 18.9 LAB L300.4200 Normal INR 1.6 Performed By: #### L300.3900, L300.4310 #### [facility] [address] [place], [address] PARTIAL THROMBOPLAST Collected: 06/04/2018 Status: F Source: [place] TIME 8:59 PM [facility] TYPE CODE TESTS RESULT OUT OF REFERENCE UNITS RANGE LAB L300.4310 24.1-36.2 Seconds High PTT 51.0 Performed By: #### L300.3900, L300.4310 #### [facility] [address] [place], [address] ABDOMEN/PELVIS WITHOUT Observed: 06/04/2018 Status: F Source: [place] CONT 8:51 PM [facility] Imaging Services [address] [place] [address] Abdomen/Pelvis without Cont MR#: [id number] Acct: [id number] Name: PALOMA CANNON Rep #: [id number] : 1990 F 28 From: Hood Rice DO PCP: Peyton Rogers MD Status: REG ER Study: Abdomen/Pelvis without Cont Date of Exam: 06/04/18 Exam# [id number] Ordering Dr: Fany Littlejohn MD STUDY: CT [...] Hood Rice DO at 22:01 EST Tel [phone], Service support , CC: Peyton Rogers MD; Fany Littlejohn MD Dopeman: Signed PROTHROMBIN TIME W/INR Collected: 06/04/2018 Status: F Source: [place] 9:01 AM [facility] TYPE CODE TESTS RESULT OUT OF RANGE REFERENCE UNITS LAB L300.4150 11.7-14.9 SECONDS High PROTIME 19.3 LAB L300.4200 Normal INR 1.6 Performed By: #### L300.3900 #### [facility] [address] [place], [address] PROTHROMBIN TIME W/INR Collected: 05/11/2018 Status: F Source: [place] 8:01 AM [facility] TYPE CODE TESTS RESULT OUT OF RANGE REFERENCE UNITS LAB L300.4150 11.7-14.9 SECONDS High PROTIME 31.2 LAB L300.4200 Normal INR 3.0 Performed By: #### L300.3900 #### [facility] [address] [place], [address] PROTHROMBIN TIME W/INR Collected: 05/04/2018 Status: F Source: [place] 8:01 AM [facility] TYPE CODE TESTS RESULT OUT OF RANGE REFERENCE UNITS LAB L300.4150 11.7-14.9 SECONDS High PROTIME 21.1 LAB L300.4200 Normal INR 1.8 Performed By: #### L300.3900 #### [facility] [address] [place], [address] EMERGENCY DEPARTMENT Observed: 04/29/2018 Status: F Source: [place] SUMMARY 5:06 AM [facility] Medical Records Department [address] [place] [address] Emergency Department Summary 04/24/18 0332 MR#: [id number] Acct: [id number] Name: PALOMA CANNON Lauren Rep #: [id number] : 1990 28 From: Wilfred Lucas MD [...] for which she gets regular plasmapheresis at [facility], has a problem with bleeding and clotting, [...] is admitted, it is almost always at [facility] because that is where all [...] plan will be to discuss with her jewel diameter gauger at [facility], Dr. Andujar. She could possibly be discharged with close outpatient follow-up. We do carry bivalirudin at this hospital. The patient states she will likely prefer to be admitted at [facility] if she needs admission, since all of [...] your Primary Care Provider. Call [facility] ([phone]) or report to the closest Emergency Room. Call 911 if necessary. 04/29/18 0506 <Electronically signed by Wilfred Lucas MD> Date Wilfred Lucas MD Cosigner Signature (If Indicated): Date CC: Peyton Rogers MD PROTHROMBIN TIME W/INR Collected: 04/27/2018 Status: F Source: [place] 7:53 AM [facility] Order Comment: Comments: ORDERED BY [facility], FAX [phone] TYPE CODE TESTS RESULT OUT OF RANGE REFERENCE UNITS LAB L300.4150 11.7-14.9 SECONDS High PROTIME 19.9 LAB L300.4200 Normal INR 1.7 Performed By: #### L300.3900 #### [facility] [address] [place], [address] VENOUS DUPLEX LOWER Observed: 04/24/2018 Status: F Source: [place] EXTREMITY 5:30 PM [facility] Cardiovascular Services [address] [place] [address] Venous Duplex US, Unilateral 04/24/18 0802 MR#: [id number] Acct: [id number] Name: PALOMA CANNON Rep #: [id number] : 1990 28 From: Ros Nam MD [...] Physician: Magdalena Lewis Performed By: Giovanni Heaton, HAILE 04/24/181728 Date Ros Nam MD CC: WILFRED LUACS MD; Peyton Rogers MD Date Dictated: 04/24/18801 Date Transcribed: 04/24/181728 Dopeman: Signed DISCHARGE INSTRUCTION Observed: 04/24/2018 Status: F Source: [place] 4:23 PM [facility] Medical Records Department [address] [place] [address] Discharge Instruction 04/24/18 0934 MR#: [id number] Acct: [id number] Name: PALOMA CANNON Rep #: [id number] : 1990 28 From: Ignacio Rider MD [...] your Primary Care Provider. Call [facility] ([phone]) or report to the closest Emergency Room. Call 911 if necessary. 04/24/18 1623 <Electronically signed by Ignacio Rider MD> Date Ignacio Rider MD Cosigner Signature (If Indicated): Date CC: Peyton Rogers MD EMERGENCY DEPARTMENT Observed: 04/24/2018 Status: F Source: [place] SUMMARY 4:23 PM [facility] Medical Records Department [address] [place] [address] Emergency Department Summary 04/24/18 0937 MR#: [id number] Acct: [id number] Name: PALOMA CANNON Rep #: [id number] : 1990 28 From: Igncaio Rider MD PCP: Peyton Rogers MD Status: [...] [facility] report was obtained which shows that April 04 she had a prescription for methadone that was to last 1 week. She also had a prescription for Percocet which was the last 1 week. Treatment Plan: The patient was discussed withEugenia Ly, the nurse for Dr. Andujar her jewel diameter gauger. She asked that we discharge her with prescription for 20 Percocet and have her see her jewel diameter gauger in 6 days when she receives her plasmapheresis. She reviewed the notes and sees that she is Joey spoken with someone about how to change her Coumadin dosing. Return to the emergency department for any worsening symptoms. Disposition: To home in improved and stable condition. Impression: 1. Left leg pain. 2. Subtherapeutic INR. 3. History of antiphospholipid antibody. This note was generated with [employer] dictation software. It may contain incorrect words, [...] your Primary Care Provider. Call [facility] ([phone]) or report to the closest Emergency Room. Call 911 if necessary. 04/24/18 0211 <Electronically signed by Ignacio Rider MD> Date Ignacio Rider MD Cosigner Signature (If Indicated): Date CC: Peyton Rogers MD CBC W/DIFF, AUTOMATED Collected: 04/24/2018 Status: F Source: [place] 3:40 AM [facility] TYPE CODE TESTS RESULT OUT OF [...] Lymph 0.62 Performed By: #### L100.0100 #### [facility] [address], [address] BASIC METABOLIC Collected: 04/24/2018 Status: F Source: [place] PROFILE (BMP) 3:40 AM [facility] REPOS[facility] TYPE CODE TESTS RESULT OUT OF [...] GAP 8 Performed By: #### L500.2500 #### [facility] [address] [place], [place], [address] PROTHROMBIN TIME W/INR Collected: 04/23/2018 Status: F Source: [place] 8:02 AM [facility] REPOS[facility]ORY TYPE CODE TESTS RESULT OUT OF RANGE REFERENCE UNITS LAB L300.4150 11.7-14.9 SECONDS High PROTIME 20.4 LAB L300.4200 Normal INR 1.7 Performed By: #### L300.3900 #### [facility] [address] [place], [place], [address] PROTHROMBIN TIME W/INR Collected: 04/20/2018 Status: F Source: [place] 8:06 AM [facility] TYPE CODE TESTS RESULT OUT OF RANGE REFERENCE UNITS LAB L300.4150 11.7-14.9 SECONDS High PROTIME 24.1 LAB L300.4200 Normal INR 2.2 Performed By: #### L300.3900 #### [facility] [address] [place], [address] PROTHROMBIN TIME W/INR Collected: 04/12/2018 Status: F Source: [place] 8:07 AM [facility] TYPE CODE TESTS RESULT OUT OF RANGE REFERENCE UNITS LAB L300.4150 11.7-14.9 SECONDS High PROTIME 23.5 LAB L300.4200 Normal INR 2.1 Performed By: #### L300.3900 #### [facility] [address] [place], [address] PROTHROMBIN TIME W/INR Collected: 04/09/2018 Status: F Source: [place] 8:30 AM [facility] TYPE CODE TESTS RESULT OUT OF RANGE REFERENCE UNITS LAB L300.4150 11.7-14.9 SECONDS High PROTIME 18.5 LAB L300.4200 Normal INR 1.5 Performed By: #### L300.3900 #### [facility] [place], [address] PROTHROMBIN TIME W/INR Collected: 04/05/2018 Status: F Source: [place] 8:13 AM [facility] TYPE CODE TESTS RESULT OUT OF RANGE REFERENCE UNITS LAB L300.4150 11.7-14.9 SECONDS High PROTIME 20.3 LAB L300.4200 Normal INR 1.7 Performed By: #### L300.3900 #### [facility] [place], [address] PROTHROMBIN TIME W/INR Collected: 01/19/2018 Status: F Source: [place] 8:03 AM [facility] TYPE CODE TESTS RESULT OUT OF REFERENCE UNITS RANGE LAB L300.4150 11.7-14.9 SECONDS High PROTIME 39.9 LAB L300.4200 High alert INR 4.1 Result Comment: CRITICAL VALUE VERIFIED. CALLED TO MAGDALENA JUÁREZ 01/19/18 0838 Zhou Nava. RESULTS READ BACK BY SAME. Performed By: #### L300.3900 #### [facility] [address] [place], [address] PROTHROMBIN TIME W/INR Collected: 01/12/2018 Status: F Source: [place] 8:05 AM [facility] TYPE CODE TESTS RESULT OUT OF RANGE REFERENCE UNITS LAB L300.4150 11.7-14.9 SECONDS High PROTIME 24.7 LAB L300.4200 Normal INR 2.2 Performed By: #### L300.3900 #### [facility] [address] [place], [address] PROTHROMBIN TIME W/INR Collected: 01/05/2018 Status: F Source: [place] 8:20 AM [facility] TYPE CODE TESTS RESULT OUT OF RANGE REFERENCE UNITS LAB L300.4150 11.7-14.9 SECONDS High PROTIME 34.6 LAB L300.4200 Normal INR 3.4 Performed By: #### L300.3900 #### [facility] [facility] [address] [place], [address] PROTHROMBIN TIME W/INR Collected: 01/02/2018 Status: F Source: [place] 7:55 AM [facility] TYPE CODE TESTS RESULT OUT OF RANGE REFERENCE UNITS LAB L300.4150 11.7-14.9 SECONDS High PROTIME 27.8 LAB L300.4200 Normal INR 2.6 Performed By: #### L300.3900 #### [facility] [address] [place], [address] PROTHROMBIN TIME W/INR Collected: 12/29/2017 Status: F Source: [place] 8:10 AM [facility] TYPE CODE TESTS RESULT OUT OF RANGE REFERENCE UNITS LAB L300.4150 11.7-14.9 SECONDS High PROTIME 18.0 LAB L300.4200 Normal INR 1.5 Performed By: #### L300.3900 #### [facility] [address] [place], [address] PROTHROMBIN TIME W/INR Collected: 12/22/2017 Status: F Source: [place] 8:15 AM [facility] TYPE CODE TESTS RESULT OUT OF REFERENCE UNITS RANGE LAB L300.4150 11.7-14.9 SECONDS High PROTIME 36.7 LAB L300.4200 High alert INR 3.7 Result Comment: CRITICAL VALUE VERIFIED. CALLED TO BEATRIZ MANUFACTURING SUPPORT ENGINEER 12/22/17 0858 Zhou Nava. RESULTS READ BACK BY SAME. Performed By: #### L300.3900 #### [facility] [address] [place], [address] PROTHROMBIN TIME W/INR Collected: 12/19/2017 Status: F Source: [place] 8:12 AM [facility] TYPE CODE TESTS RESULT OUT OF REFERENCE UNITS RANGE LAB L300.4150 11.7-14.9 SECONDS High PROTIME 45.0 LAB L300.4200 High alert INR 4.8 Result Comment: CRITICAL VALUE VERIFIED. [facility] TO [facility] 12/19/17 0835 Aline Villalba. RESULTS READ BACK BY SAME . Performed By: #### L300.3900 #### [facility] [address] [facility] [address] [place], [address] CBC AND DIFFERENTIAL Collected: 12/03/2017 Status: F Source: [place] 5:24 AM [facility] REPOSITORY TYPE CODE TESTS RESULT OUT [...] Abs Lymph Low 0.64 LAB AMONO % Owen% 7.9 LAB AAMONO <0.87 k/uL Abs Owen 0.73 LAB AEOS % Eosin% 0.0 LAB AAEOS <0.46 k/uL Abs Eosin 0.00 LAB ABASO % Baso% 0.0 LAB AABASO <0.11 k/uL Abs Baso 0.00 LAB AMETA % Line [place]% 0.9 LAB AMYELO % Myelo% 5.3 LAB ANIIMI Anisocytosis Present LAB LFTIMI Left Shift Present LAB POLIMI Polychromasia Slight LAB RCFIMI RBC Fragments Few LAB PLTEST Platelet Estimate Platelet estimate adequate LAB DTYP DTYPE Manual Diff Performed By: #### CBCDIF, PT #### [facility] [address] [place], [place] [address] PROTIME Collected: 12/03/2017 Status: F Source: [place] 5:24 AM [facility] REPOSITORY TYPE CODE TESTS RESULT OUT OF RANGE REFERENCE UNITS LAB PSEC 9.7-13.0 sec High PT Sec 31.6 LAB INR 0.9-1.3 High PT INR 3.3 Result Comment: Vitamin K Antagonist (VKA) Therapeutic Range: INR 2 to 3 (Target INR of 2.5) Note: For patients treated with VKA drugs, such as warfarin, the [place] [employer]icians 2012 Guideline recommends [...] Chest 2012, 141:7S-47S Diogenes RA, et al. [facility] 2017, 70: 252-289 Performed By: #### CBCDIF, PT #### [facility] [address] [place], [place] [address] CASE MANAGEM Observed: 12/02/2017 Status: COMPLETED Source: [place] 10:20 AM [facility] REPOSITORY HNO ID: [id number] Author: Wagner Paredes (Sw) Service: Social Work Author Type: Workday Director Type: Care Mgt Progress Note Filed: 12/02/2017 [...] Ambulance: Transport Agency and Phone: Sandra Gabriel [phone] . Discussion of financial coverage occurred with Patient. ADDITIONAL CONTACT RESOURCES: n/a Per-cert was obtained by facility and team agreeable with discharge pt today to facility. Pt to be transported by [facility]. Pt is agreeable with discharge plan. SIGNATURE: NADIA Tian LSW PATIENT NAME: Paloma Cannon DATE: December 02, 2017 TIME: 10:20 AM PAGER/CONTACT #: [phone] CBC Collected: 12/02/2017 Status: F Source: [place] 5:27 AM [facility] REPOSITORY TYPE CODE TESTS RESULT OUT [...] By: #### CBC, PT, PTT, RFP #### [facility] [address] [place] [place], [place] [address] PROTIME Collected: 12/02/2017 Status: F Source: [place] 5:27 AM [facility] REPOSITORY TYPE CODE TESTS RESULT OUT OF RANGE REFERENCE UNITS LAB PSEC 9.7-13.0 sec High PT Sec 30.3 LAB INR 0.9-1.3 High PT INR 3.1 Result Comment: Vitamin K Antagonist (VKA) Therapeutic Range: INR 2 to 3 (Target INR of 2.5) Note: For patients treated with VKA drugs, such as warfarin, the [place] [employer] 2012 Guideline recommends [...] Chest 2012, 141:7S-47S Diogenes RA, et al. [facility] 2017, 70: 252-289 Performed By: #### CBC, PT, PTT, RFP #### [facility] [address] [place], [place] [address] APTT Collected: 12/02/2017 Status: F Source: [place] 5:27 AM [facility] REPOSITORY TYPE CODE TESTS RESULT OUT [...] By: #### CBC, PT, PTT, RFP #### [facility] [address] [place], [place] [address] RENAL FUNCTION PANEL Collected: 12/02/2017 Status: F Source: [place] 5:27 AM [facility] REPOSITORY TYPE CODE TESTS RESULT OUT OF REFERENCE UNITS RANGE LAB ALB 3.9-4.9 g/dL Low Albumin 3.5 LAB CA 8.5-10.2 mg/dL Low Calcium, Total 8.4 LAB PHOS 2.7-4.8 mg/dL Phosphorus 3.4 LAB GLU 74-99 mg/dL Glucose 80 Result Comment: The [place] [employer] (ADA) provides guidance for cutoff [...] Standards of Medical Care in Diabetes 2016, [place] [employer]. Diabetes Care. 2016.39(Suppl 1). LAB [...] By: #### CBC, PT, PTT, RFP #### [facility] [address] [place], [place] [address] PROGRESS Observed: 12/01/2017 Status: COMPLETED Source: [place] 1:33 PM [facility] REPOSITORY HNO ID: [id number] Author: Olga Reyez Service: General Internal Medicine Author Type: Resident Type: Progress Notes Filed: 12/01/2017 1:57 PM Note Text: Attestation signed by Zhou Lang at 12/01/2017 5:14 PM [facility] STAFF PHYSICIAN NOTE OF PERSONAL INVOLVEMENT [...] if helpful. SIGNATURE: Zhou Lang MD PAGER: [phone] DATE of SERVICE: 12/01/2017 TIME of SERVICE: 5:05 PM RAF A PROGRESS NOTE For questions regarding this patient today please page [phone] After 5 pm on weekdays and 3pm on weekends and holidays please page correspondent pager [phone] SERVICE DATE: 12/01/2017 SERVICE TIME: 1:33 PM [...] (LEVSIN SL) 0.25 mg SUBLINGUAL TID PRN fpankkrupqVMLNZ-zqxuzf-utyxgxerj 10 mL oral liquid (BMX 1:1:1) 10 [...] with VKA drugs, such as warfarin, the [place] [employer] 2012 Guideline recommends [...] Chest 2012, 141:7S-47S Diogenes RESENDIZ, et al. [facility] 2017, 70: 252-289 ASSESSMENT AND PLAN: Active Hospital Problems Diagnosis - Retroperitoneal hematoma Retroperitoneal bleed: s/p 7 units PRBCs s/p IR emobolization of left L3 artery at [facility] on 10/23 IR embolization of left L2 [...] 11/03, 11/13 (heme following); patient is on [id number] (Mondays), next scheduled for 11/27 11/22: started [...] painin morning, access site for embolization at [facility], no erythema or induration appreciated on exam, exquisitely TTP Groin study showed no signs of PSA, known AV fistula visualized with retrograde flow, vascular med aware- no further recs 10/28: pain less severe, no physical exam findings Repeat Leg DVT shows no pseudoaneurysm Likely due to nerve compression/RP hematoma causing compressive symtpoms S/p R groin drain placed at [facility] on 10/24 s/p L groin drain placed [facility] during embolization on 10/26 Plan: - repeat image showed decreased size - will continue to monitor symptoms and HANDH w low threshold for imaging MAINTENANCE: VTE PROPHYLAXIS:?coumadin NEED FOR ZUNIGA- Removed 11/14/17 LINES: Double lumen dialysis catheter 10/25/17 Dispo-?Acute rehabilitation center This note is not final until staffed by the attending physician and authenticated by responsible provider. SIGNATURE: Olga Reyez MD PATIENT NAME: aPloma Cannon DATE: December 01, 2017 TIME: 1:33 PM PAGER: [phone] CASE MANAGEM Observed: 12/01/2017 Status: COMPLETED Source: [place] 1:13 PM [facility] [place] REPOSITORY HNO ID: [id number] Author: Cherrie Loaiza (Asst) Service: Care Management Author Type: Resource Center Reprint Sorter Type: Care Mgt Progress Note Filed: 12/01/2017 1:14 PM Note Text: CARE MANAGEMENT PROGRESS NOTE SERVICE DATE: 12/01/2017 SERVICE TIME: 12:04 LOS: 37 days IM letter given to patient on 12/01/17. SIGNATURE: Asst Xiomara PATIENT NAME: Paloma Cannon DATE: December 01, 2017 TIME: 1:13 PM PAGER/CONTACT #: [phone] THERAPY NT Observed: 12/01/2017 Status: COMPLETED Source: [place] 11:06 AM [facility] REPOSITORY O ID: [id number] Author: [facility] Service: Physical Therapy Author Type: Rx Specialist Type: Therapy (PT/OT/Speech/Resp) Filed: 12/01/2017 11:14 [...] Diagnosis: Reduced mobility-other Interventions Provided: Gait Training (71479);Therapeutic Exercise (37759) Therapeutic Exercise (88500) Treatment Minutes: 15 1 unit Skilled Intervention(s): [...] breath (91% on 6 liters) Gait Training (01033) Treatment Minutes: 23 2 units Skilled Intervention(s): [...] 01, 2017 TIME: 11:06 AM PAGER/CONTACT #: [phone] CBC Collected: 12/01/2017 Status: F Source: [place] 5:14 AM [facility] REPOSITORY TYPE CODE TESTS RESULT OUT [...] Performed By: #### CBC, PT, PTT #### [facility] [address] [place], [place] [address] PROTIME Collected: 12/01/2017 Status: F Source: [place] 5:14 AM [facility] REPOSITORY TYPE CODE TESTS RESULT OUT OF RANGE REFERENCE UNITS LAB PSEC 9.7-13.0 sec High PT Sec 23.8 LAB INR 0.9-1.3 High PT INR 2.4 Result Comment: Vitamin K Antagonist (VKA) Therapeutic Range: INR 2 to 3 (Target INR of 2.5) Note: For patients treated with VKA drugs, such as warfarin, the [place] [employer] Physicians 2012 Guideline recommends [...] Chest 2012, 141:7S-47S Diogenes RA, et al. [facility] 2017, 70: 252-289 Performed By: #### CBC, PT, PTT #### [facility] [address] [place], [place] [address] APTT Collected: 12/01/2017 Status: F Source: [place] 5:14 AM [facility] REPOSITORY TYPE CODE TESTS RESULT OUT [...] Performed By: #### CBC, PT, PTT #### [facility] [address] [place], [place] [address] CNDS Observed: 11/30/2017 Status: COMPLETED Source: [place] 5:53 PM [facility] REPOSITORY HNO ID: [id number] Author: Olga Reyez Service: General Internal Medicine Author Type: Resident Type: Discharge Summaries Filed: 12/02/2017 11:56 AM Note Text: Attestation signed by Zhou Lang at 12/02/2017 4:29 PM [facility] STAFF PHYSICIAN NOTE OF PERSONAL INVOLVEMENT [...] Please see Dr. Reyez's summary of her siikrihnwnd-hr-hrmu issues for follow-up, monitoring, and medication changes. I remain available for questions/discussion, if helpful. CARE COORDINATION: Discharge Management: I personally spent greater than 30 minutes involved in the discharge management of this patient SIGNATURE: Zhou Lang MD PAGER: [phone] DATE of SERVICE: 12/02/2017 TIME of SERVICE: [...] with intubation and pressors. According to the HANDP, warfarin was held on 10/13, and she [...] 10/23/17-10/25/17: Shortly after discharge, she presented to [facility] ED on 10/23 due to new left-sided abdominal pain that was severe and stabbing in nature, and radiated to her left upper and lower extremities. A CT abdomen/pelvis revealed an extensive left retroperitoneal hemorrhage with mass effect to the left kidney, and less extensive hemorrhage along the surface of the spleen and along the mesentery. She was transferred to [facility] for admission to the ICU. In [facility] ICU, urgent L RP angiogram with IR [...] and underwent dialysis. She was transferred [facility] on 10/25/17 for further management. 10/25/17-11/03/17 ([facility]): On admission, her Hb was 6.6, [...] U platelets during her MICU stay at [facility], in addition to the 7 units received at [facility]. Hematology was also consulted who recommended to [...] 12K subsequently. She was transitioned from dilaudid 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 to IV dilaudid and PO oxycodone prior to transfer to the regular nursing floor under the care of General Internal Medicine on 11/03. 11/03/17-12/02/17: Hemolysis labs were significant for elevated LDH, elevated reticulocyte count, undetectable haptoglobin, direct darby negative, and CAHEBG94 activity levels of 56% (not suspicious for [...] IR emobolization of left L3 artery at [facility] on 10/23 IR embolization of left L2 [...] 11/03, 11/13 (heme following); patient is on [id number] (Mondays), next scheduled for 11/27 11/22: started [...] painin morning, access site for embolization at [facility], no erythema or induration appreciated on exam, exquisitely TTP Groin study showed no signs of PSA, known AV fistula visualized with retrograde flow, vascular med aware- no further recs 10/28: pain less severe, no physical exam findings Repeat Leg DVT shows no pseudoaneurysm Likely due to nerve compression/RP hematoma causing compressive symtpoms S/p R groin drain placed at [facility] on 10/24 s/p L groin drain placed [facility] during embolization on 10/26 Plan: - repeat [...] Instead, start taking pentamidine 300 mg inhalation [id number]. Next one due 12/11/17 - Stop hydromorphone. Take Oxycodone IR PO 5mg q3h PRN - Coumadin 5 mg qday for anticoagulation. For the two days following PLEX, she is instructed to take 7.5 mg daily. -If Rehab has any questions in regards to coumadin dosing please instruct to call Magdalena Lewis CNP (Vascular Medicine) [phone] -At discharge from rehab please instruct patient to contact Magdalena Lewis CNP [phone] (Vascular Medicine) for coumadin instructions - Dose [...] needed (Left lower back pain + spasm). uiktzbattgRXBND-ktjtqk-ikowmuvea (BMX 1:1:1) 10 mL Take 10 mL [...] Comments: Reason for Stopping: HYDROmorphone 0.5 mg/mL 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 CLINICIAN DOSE 0.4 mg Comments: Reason for Stopping: sulfamethoxazole-trimethoprim (BACTRIM DS,SEPTRA DS) 1 tablet Comments: Reason for Stopping: Future Appointments: Future Appointments Date Time Provider Department Center 12/11/2017 8:40 AM [id number] JONES [facility] 12/11/2017 8:40 AM [id number] JONES [facility] 12/11/2017 10:45 AM [id number]-PSZSJVMAGDALENA PARMAR (SALES DEVELOPMENT CONSULTANT) PERVMN VASM J/S Bld 12/11/2017 10:45 AM [id number]-XSVMNSMAGDALENA HANSEN (SALES DEVELOPMENT CONSULTANT) PERVMN VASM J/S Bld 12/11/2017 12:00 PM [id number] [facility] [place] 12/11/2017 12:20 PM [id number] CHEST MAIN A21 RADMN RADIO A BLDG 12/11/2017 1:25 PM 5091-GUILLAUME ALICEA PULM A/E/R/G 12/11/2017 1:25 PM 5091-PARAMGUILLAUME STOUT PULM A/E/R/G 12/25/2017 12:00 PM [id number] [facility] [place] 01/04/2018 8:10 AM ERROL BALDWIN) NEPHMN NEPH Q BLDG 01/04/2018 8:10 AM ERROL BALDWIN) NEPHMN NEPH Q BLDG 01/08/2018 12:00 PM [id number] [facility] [place] 01/22/2018 10:15 AM [id number]-EJDWINMAGDALENA HANSEN (SALES DEVELOPMENT CONSULTANT) PERVMN VASM J/S Bld 01/22/2018 10:15 AM [id number]-WQJWUIMAGDALENA PARMAR (SALES DEVELOPMENT CONSULTANT) PERVMN VASM J/S Bld 01/22/2018 12:00 PM [id number]-JSPBBWELS [facility] [place] 02/05/2018 12:00 PM [id number]-FLKWNZTEI [facility] [place] SIGNATURE: Olga Reyez MD PATIENT NAME: Paloma Cannon DATE: November 30, 2017 TIME: 5:53 PM PAGER: [phone] THERAPY NT Observed: 11/30/2017 Status: COMPLETED Source: [place] 2:44 PM [facility] REPOSITORY O ID: [id number] Author: Tamiko (Pt) Adelaida Service: Physical Therapy Author Type: Physical Therapist Type: Therapy (PT/OT/Speech/Resp) Filed: 11/30/2017 2:50 PM Note Text: Physical Therapy Wound/Lymph Treatment SERVICE DATE: 11/30/2017 SERVICE TIME: 1412 to 1438 ROOM: [place] [id number] Recommended Discharge Disposition Comments: will require further [...] Patient TREATMENT INTERVENTIONS: Interventions Provided: Manual Therapy (28430) Manual Therapy (11131) Treatment Minutes: 26 2 units Skilled Intervention: [...] 30, 2017 TIME: 2:44 PM PAGER/CONTACT #: [phone] CASE MANAGEM Observed: 11/30/2017 Status: COMPLETED Source: [place] 12:43 PM [facility] REPOSITORY HNO ID: [id number] Author: Jacinta SanchezRn) JEFF Olmedo Service: Care Management Author Type: Registered Nurse Type: Care Mgt Progress Note Filed: 11/30/2017 12:43 PM Note Text: CARE MANAGEMENT PROGRESS NOTE SERVICE DATE: 11/30/2017 SERVICE TIME: 12:43 PM LOS: 36 days Needs Prior to Discharge: Precertification : Dc tomorrow to [facility] pending precert. (started 11/28) At direction of TEENA Kapoor Main AKILAH Gutiérrez (p) [phone] DM t/p set for 1p. . Per , at dc pt will need apheresis q 2 weeks indefinitely and close daily lab montoring of blood status for possible need for transfusion . Current on , has home O2 2L 02 via [facility]. Nikolaymars CM is Elsa Matos (p) [phone] Per bolivar Hunter phone # is [phone]. CM to continue to follow SIGNATURE: Jacinta Olmedo RN PATIENT NAME: Paloma Cannon DATE: November 30, 2017 TIME: 12:43 PM PAGER/CONTACT #: [phone] [facility] Observed: 11/30/2017 Status: COMPLETED Source: [place] 12:34 PM [facility] [place] REPOSITORY HNO ID: [id number] Author: Negrito Kelley (Therapist) Miranda Service: Art Therapy Author Type: Therapist Type: Allied Health Filed: 12/01/2017 3:55 PM Note Text: ART THERAPY NOTE SERVICE DATE: 11/30/2017 SERVICE TIME: 11:30 Referred By: PT Reason for Referral: anxiety Session Type: Initial Time Spent (minutes): 60 Goals: Coping Through Diversion;Decision Making;Diversion From Pain;Feelings Translated Into Images;Reduce Anxiety Interventions: Art Based Therapy Response Before After Mood 4 1 Anxiety 2/10 0/10 Pain 9/10 8/10 Scale: [...] 30, 2017 TIME: 12:34 PM PAGER/CONTACT #: [phone] THERAPY NT Observed: 11/30/2017 Status: COMPLETED Source: [place] 9:45 AM [facility] [place] REPOSITORY O ID: [id number] Author: Zahra Burks (Cota-L) Service: Occupational Therapy Author Type: [facility] Type: Therapy (PT/OT/Speech/Resp) Filed: 11/30/2017 9:57 AM Note Text: Occupational Therapy Treatment SERVICE DATE: 11/30/2017 SERVICE TIME: 826 to 939 ROOM: [facility] Recommended Discharge Disposition: Acute Rehab Justification [...] daily living (ADL) Interventions Provided: Therapeutic Activity (34512) Therapeutic Activity (18433) Treatment Minutes: 73 5 units Skilled Intervention(s): [...] relaxation. Instructed pt on sit-stand transfer from BSC, 2xs, with CGA- min A and use [...] November 30, 2017 TIME: 9:47 AM PAGER: [phone] PROTIME Collected: 11/30/2017 Status: F Source: [place] 8:34 AM [facility] [place] REPOSITORY TYPE CODE TESTS RESULT OUT OF RANGE REFERENCE UNITS LAB PSEC 9.7-13.0 sec High PT Sec 25.8 LAB INR 0.9-1.3 High PT INR 2.6 Result Comment: Vitamin K Antagonist (VKA) Therapeutic Range: INR 2 to 3 (Target INR of 2.5) Note: For patients treated with VKA drugs, such as warfarin, the [place] [employer] 2012 Guideline recommends [...] Chest 2012, 141:7S-47S Diogenes RA, et al. [facility] 2017, 70: 252-289 Performed By: #### PT, PTTAC #### [facility] [address] [place], [place] [address] PTT,ANTICOAG THERAPY Collected: 11/30/2017 Status: F Source: [place] 8:34 AM [facility] REPOSITORY TYPE CODE TESTS RESULT OUT [...] Hospital. Performed By: #### PT, PTTAC #### [facility] [address] [place], [place] [address] NURSING PROG Observed: 11/30/2017 Status: COMPLETED Source: [place] 7:55 AM [facility] REPOSITORY HNO ID: [id number] Author: Krysten (Rn) JEFF Morgan Service: Nursing Author Type: Registered [...] CONSULT PROG Observed: 11/30/2017 Status: COMPLETED Source: [place] 7:30 AM [facility] REPOSITORY HNO ID: [id number] Author: Harika Almaguer) CY Higuera Service: Vascular Medicine Author Type: Physician Reprint Sorter Type: Consult Progress Note Filed: 11/30/2017 1:02 [...] (LEVSIN SL) 0.25 mg SUBLINGUAL TID PRN qbqghfmlipJHLKK-gygvgk-ljaucibfr 10 mL oral liquid (BMX 1:1:1) 10 [...] rebridging bival to warfarin. Plan discussed with Ynuiel Rodriguez MD: _Bridge completed, bival can be [...] dosing please instruct to call Magdalena Lewis [facility] [phone] -At discharge from rehab please instruct patient to contact Magdalena Lewis [facility] [phone] for coumadin instructions -VM will sign off, please call if new questions/concerns arise at pager [phone] SIGNATURE: CY Argueta PATIENT NAME: Paloma Cannon DATE: November 30, 2017 TIME: 7:33 AM PAGER/CONTACT #: [phone] . PROGRESS Observed: 11/30/2017 Status: COMPLETED Source: [place] 5:41 AM [facility] REPOSITORY HNO ID: [id number] Author: Olga Reyez Service: General Internal Medicine Author Type: Resident Type: Progress Notes Filed: 11/30/2017 3:37 PM Note Text: Attestation signed by Zhou Lang at 11/30/2017 6:47 PM [facility] STAFF PHYSICIAN NOTE OF PERSONAL INVOLVEMENT [...] if helpful. SIGNATURE: Zhou Lang MD PAGER: [phone] DATE of SERVICE: 11/30/2017 TIME of SERVICE: 6:38 PM RAF A PROGRESS NOTE For questions regarding this patient today please page [phone] After 5 pm on weekdays and 3pm on weekends and holidays please page correspondent pager [phone] SERVICE DATE: 11/30/2017 SERVICE TIME: 5:41 AM [...] (LEVSIN SL) 0.25 mg SUBLINGUAL TID PRN himpfmmoplWWIEC-aikmcw-uzfjzxkpr 10 mL oral liquid (BMX 1:1:1) 10 [...] IR emobolization of left L3 artery at [facility] on 10/23 IR embolization of left L2 [...] 11/03, 11/13 (heme following); patient is on [id number] (Mondays), next scheduled for 11/27 11/22: started [...] painin morning, access site for embolization at [facility], no erythema or induration appreciated on exam, exquisitely TTP Groin study showed no signs of PSA, known AV fistula visualized with retrograde flow, vascular med aware- no further recs 10/28: pain less severe, no physical exam findings Repeat Leg DVT shows no pseudoaneurysm Likely due to nerve compression/RP hematoma causing compressive symtpoms S/p R groin drain placed at [facility] on 10/24 s/p L [facility] during embolization on 10/26 Plan: - repeat [...] November 30, 2017 TIME: 5:41 AM PAGER: [phone] CBC Collected: 11/30/2017 Status: F Source: [place] 4:35 AM [facility] REPOSITORY TYPE CODE TESTS RESULT OUT [...] By: #### CBC, PT, PTT, RFP #### [facility] [address], [place] [address] PROTIME Collected: 11/30/2017 Status: F Source: [place] 4:35 AM [facility] REPOSITORY TYPE CODE TESTS RESULT OUT OF RANGE REFERENCE UNITS LAB PSEC 9.7-13.0 sec High PT Sec 30.6 LAB INR 0.9-1.3 High PT INR 3.2 Result Comment: Vitamin K Antagonist (VKA) Therapeutic Range: INR 2 to 3 (Target INR of 2.5) Note: For patients treated with VKA drugs, such as warfarin, the [place] [employer] 2012 Guideline recommends [...] Chest 2012, 141:7S-47S Diogenes RA, et al. [facility] 2017, 70: 252-289 Performed By: #### CBC, PT, PTT, RFP #### [facility] [address] [place] [id number] APTT Collected: 11/30/2017 Status: F Source: [place] 4:35 [facility] REPOSITORY TYPE CODE TESTS RESULT OUT [...] By: #### CBC, PT, PTT, RFP #### [facility] [address] [place], [place] [address] RENAL FUNCTION PANEL Collected: 11/30/2017 Status: F Source: [place] 4:35 AM [facility] REPOSITORY TYPE CODE TESTS RESULT OUT OF REFERENCE UNITS RANGE LAB ALB 3.9-4.9 g/dL Low Albumin 3.3 LAB CA 8.5-10.2 mg/dL Low Calcium, Total 8.4 LAB PHOS 2.7-4.8 mg/dL Phosphorus 3.0 LAB GLU 74-99 mg/dL Glucose 84 Result Comment: The [place] [employer] (ADA) provides guidance for cutoff [...] Standards of Medical Care in Diabetes 2016, [place] [employer]. Diabetes Care. 2016.39(Suppl 1). LAB [...] By: #### CBC, PT, PTT, RFP #### [facility] [address] [place], [place] [address] TYPE AND SCREEN Collected: 11/30/2017 Status: F Source: [place] 4:35 AM [facility] REPOSITORY TYPE CODE TESTS RESULT OUT OF REFERENCE UNITS RANGE LAB %ABR B ABO/RH(D) POSITIVE LAB % Antibody POS Screen Performed By: #### TSCR #### [facility] [address] [place] [id number] NURSING PROG Observed: 11/29/2017 Status: COMPLETED Source: [place] 5:06 PM [facility] REPOSITORY HNO ID: [id number] Author: Zoila (Rn) JEFF Cullen Service: Nursing [...] Cullen RN Observed: 11/29/2017 Status: F Source: [place] RESPIRATORY CULT/STAIN 3:09 PM [facility] REPOSITORY Sp. Request/Comment: - Specimen received in [...] <=0.5 F Performed By: #### RCULST #### [facility] [address] [place], [place] [address] NUTRITION Observed: 11/29/2017 Status: COMPLETED Source: [place] 2:45 PM [facility] REPOSITORY HNO ID: [id number] Author: Anahi (Diet-T) Sergei Service: Nutrition Therapy Author Type: Equity Research Analyst Type: Nutrition Filed: 11/29/2017 2:46 PM Note [...] November 29, 2017 TIME: 2:45 PM PAGER: [phone] CONSULT PROG Observed: 11/29/2017 Status: COMPLETED Source: [place] 2:41 PM [facility] REPOSITORY HNO ID: [id number] Author: Paulette Gooden (Elliott) Davonte Service: Vascular [...] (LEVSIN SL) 0.25 mg SUBLINGUAL TID PRN ikmwltqsuyLVOEH-jybtkc-duvdyznwm 10 mL oral liquid (BMX 1:1:1) 10 [...] remains>2 follows warfarin outpatient SIGNATURE: Paulette Naranjo APRN.SALES DEVELOPMENT CONSULTANT PATIENT NAME: Paloma Cannon DATE: November 29, 2017 TIME: 11 am PAGER/CONTACT #: [phone] . CASE MANAGEM Observed: 11/29/2017 Status: COMPLETED Source: [place] 1:38 PM [facility] REPOSITORY HNO ID: [id number] Author: Cherrie SanchezAsssarbjit Loaiza Service: Care Management Author Type: Resource Center Reprint Sorter Type: Care Mgt Progress Note Filed: 11/29/2017 1:39 PM Note Text: CARE MANAGEMENT PROGRESS NOTE SERVICE DATE: 11/29/2017 SERVICE TIME: 1:02 LOS: 35 days IM letter given to patient on 11/29/17. SIGNATURE: Asst Xiomara PATIENT NAME: Paloma Cannon DATE: November 29, 2017 TIME: 1:38 PM PAGER/CONTACT #: [phone] [facility] Observed: 11/29/2017 Status: COMPLETED Source: [place] 12:57 PM [facility] [place] REPOSITORY HNO ID: [id number] Author: Negrito Kelley (Therapist) Miranda Service: Art [...] 29, 2017 TIME: 12:57 PM PAGER/CONTACT #: [phone] THERAPY NT Observed: 11/29/2017 Status: COMPLETED Source: [place] 12:32 PM [facility] REPOSITORY HNO ID: [id number] Author: Tamiko (Pt) Adelaida Service: Physical Therapy Author Type: Physical Therapist Type: Therapy (PT/OT/Speech/Resp) Filed: 11/29/2017 12:37 PM Note Text: Physical Therapy Wound/Lymph Treatment SERVICE DATE: 11/29/2017 SERVICE TIME: 1100 to 1125 ROOM: [place] [address] Recommended Discharge Disposition Comments: will require further [...] Patient TREATMENT INTERVENTIONS: Interventions Provided: Manual Therapy (96360) Manual Therapy (38228) Treatment Minutes: 25 2 units Skilled Intervention: [...] 29, 2017 TIME: 12:33 PM PAGER/CONTACT #: [phone] Observed: 11/29/2017 Status: F Source: [place] BLOOD CULTURE 8:57 AM [facility] REPOSITORY Culture Result - No growth 5 days Performed By: #### BLCUL #### [facility] [address] [place], [place] [address] XR CHEST 1V FRONTAL Observed: 11/29/2017 Status: F Source: [facility] 7:55 AM [facility] REPOSITORY * * *Final Report* * * [...] unchanged Cardiomediastinal silhouette: Stable cardiomegaly Other: . Dopeman: MURTAZA Transcribe Date/Time: Nov 29 2017 8:43A Dictated by : KOFFI PRAJAPATI MD This examination was interpreted and the report reviewed and electronically signed by: KOFFI PRAJAPATI MD on Nov 29 2017 8:44AM EST [id number] PROGRESS Observed: 11/29/2017 Status: COMPLETED Source: [place] 5:58 AM [facility] REPOSITORY HNO ID: [id number] Author: Olga Reyez Service: General Internal Medicine Author Type: Resident Type: Progress Notes Filed: 11/29/2017 11:08 AM Note Text: Attestation signed by Zhou Lang at 11/29/2017 12:46 PM [facility] STAFF PHYSICIAN NOTE OF PERSONAL INVOLVEMENT [...] if helpful. SIGNATURE: Zhou Lang MD PAGER: [phone] DATE of SERVICE: 11/29/2017 TIME of SERVICE: 12:36 PM RAF A PROGRESS NOTE For questions regarding this patient today please page [phone] After 5 pm on weekdays and 3pm on weekends and holidays please page correspondent pager [phone] SERVICE DATE: 11/29/2017 SERVICE TIME: 5:58 AM [...] history of CAPRICE. MEDICATIONS: Current hospital medications: sodium citrate 4% [...] mg ORAL/FEEDING TUBE q 4 H PRN jpecfxrbaaRLEAT-jqijdl-hwuerhjoq 10 mL oral liquid (BMX 1:1:1) 10 [...] IR emobolization of left L3 artery at [facility] on 10/23 IR embolization of left L2 [...] 11/03, 11/13 (heme following); patient is on [id number] (Mondays), next scheduled for 11/27 11/22: started [...] appreciated - 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 - Left groin pain 10/27: C/o acute painin morning, access site for embolization at [facility], no erythema or induration appreciated on exam, exquisitely TTP Groin study showed no signs of PSA, known AV fistula visualized with retrograde flow, vascular med aware- no further recs 10/28: pain less severe, no physical exam findings Repeat Leg DVT shows no pseudoaneurysm Likely due to nerve compression/RP hematoma causing compressive symtpoms S/p R groin drain placed at [facility] on 10/24 s/p L groin drain placed at [facility] during embolization on 10/26 Plan: - repeat [...] November 29, 2017 TIME: 5:58 AM PAGER: [phone] CBC Collected: 11/29/2017 Status: F Source: [place] 4:05 AM [facility] REPOSITORY TYPE CODE TESTS RESULT [...] Performed By: #### CBC, PT, PTT #### [facility] [address] [place], [place] [address] PROTIME Collected: 11/29/2017 Status: F Source: [place] 4:05 AM [facility] REPOSITORY TYPE CODE TESTS RESULT OUT OF RANGE REFERENCE UNITS LAB PSEC 9.7-13.0 sec High PT Sec 21.5 LAB INR 0.9-1.3 High PT INR 2.2 Result Comment: Vitamin K Antagonist (VKA) Therapeutic Range: INR 2 to 3 (Target INR of 2.5) Note: For patients treated with VKA drugs, such as warfarin, the [place] [employer]icians 2012 Guideline recommends [...] Chest 2012, 141:7S-47S Diogenes RA et al. [facility] 2017, 70: 252-289 Performed By: #### CBC, PT, PTT #### [facility] [address] [place], [place] [address] APTT Collected: 11/29/2017 Status: F Source: [place] 4:05 AM [facility] REPOSITORY TYPE CODE TESTS RESULT OUT [...] Performed By: #### CBC, PT, PTT #### [facility] [address] [place], [place] [address] CONSULT PROG Observed: 11/28/2017 Status: COMPLETED Source: [place] 7:16 PM [facility] REPOSITORY HNO ID: [id number] Author: Jefferson Willett (Fel) Service: Hematology/Oncology Author [...] mg ORAL/FEEDING TUBE q 4 H PRN tlrkgqmvinRVJGG-ssotdz-cmjngcdwp 10 mL oral liquid (BMX 1:1:1) 10 [...] IR guided intervention (initially on 10/23 at [facility] and 10/26 here at [facility]. ? # Antiphospholipid antibody syndrome -recent?home therapy [...] THERAPY NT Observed: 11/28/2017 Status: COMPLETED Source: [place] 3:19 PM [facility] REPOSITORY HNO ID: [id number] Author: Tamiko (Pt) Adelaida Service: Physical Therapy Author Type: Physical Therapist Type: Therapy (PT/OT/Speech/Resp) Filed: 11/28/2017 3:25 PM Note Text: Physical Therapy Wound/Lymph Treatment SERVICE DATE: 11/28/2017 SERVICE TIME: 1443 to 1510 ROOM: [place] [address] Recommended Discharge Disposition Comments: will require further [...] Patient TREATMENT INTERVENTIONS: Interventions Provided: Manual Therapy (17688) Manual Therapy (97079) Treatment Minutes: 25 2 units Skilled Intervention: [...] 28, 2017 TIME: 3:19 PM PAGER/CONTACT #: [phone] NURSING PROG Observed: 11/28/2017 Status: COMPLETED Source: [place] 3:14 PM [facility] REPOSITORY HNO ID: [id number] Author: Zoila Sauer) JEFF Cullen Service: Nursing Author Type: Registered [...] Reyez notified in person. Bival infusing per sep, pt is therapeutic. This note was completed by: Zoila Cullen RN PROGRESS Observed: 11/28/2017 Status: COMPLETED Source: [place] 3:08 PM [facility] REPOSITORY O ID: [id number] Author: Olga Reyez Service: General Internal Medicine Author Type: Resident Type: Progress Notes Filed: 11/28/2017 3:21 PM Note Text: Attestation signed by Zhou Lang at 11/28/2017 3:47 PM [facility] STAFF PHYSICIAN NOTE OF PERSONAL INVOLVEMENT [...] if helpful. SIGNATURE: Zhou Lang MD PAGER: [phone] DATE of SERVICE: 11/28/2017 TIME of SERVICE: 3:38 PM RAF A PROGRESS NOTE For questions regarding this patient today please page [phone] After 5 pm on weekdays and 3pm on weekends and holidays please page correspondent pager [phone] SERVICE DATE: 11/28/2017 SERVICE TIME: 3:09 PM [...] mg ORAL/FEEDING TUBE q 4 H PRN gjsplmshxwIVOAM-befzps-maegputyv 10 mL oral liquid (BMX 1:1:1) 10 [...] IR emobolization of left L3 artery at [facility] on 10/23 IR embolization of left L2 [...] 11/03, 11/13 (heme following); patient is on [id number] (Mondays), next scheduled for 11/27 11/22: started [...] be discontinued - CAPRICE (acute kidney injury) ([facility]) CAPRICE on CKD III, 2/2 contrast, improved [...] per heme recs - Moraxella catarrhalis pneumonia ([facility]) Had respiratory cultures growing Moraxella catarrhalis Received [...] appreciated - 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 - Left groin pain 10/27: C/o acute painin morning, access site for embolization at [facility], no erythema or induration appreciated on exam, exquisitely TTP Groin study showed no signs of PSA, known AV fistula visualized with retrograde flow, vascular med aware- no further recs 10/28: pain less severe, no physical exam findings Repeat Leg DVT shows no pseudoaneurysm Likely due to nerve compression/RP hematoma causing compressive symtpoms S/p R groin drain placed at [facility] on 10/24 s/p L [facility]in drain [facility] during embolization on 10/26 Plan: - repeat [...] November 28, 2017 TIME: 3:09 PM PAGER: [phone] [facility] Observed: 11/28/2017 Status: COMPLETED Source: [place] 2:30 PM [facility] REPOSITORY HNO ID: [id number] Author: Kayla Stewart (Therapist) GINA Levin Service: [...] 29, 2017 TIME: 9:38 AM PAGER/CONTACT #: [phone] XR CHEST 1V FRONTAL Observed: 11/28/2017 Status: F Source: [facility] 12:20 PM [facility] REPOSITORY * * [...] enlarged with pulmonary venous congestion. Other: . Dopeman: MURTAZA Transcribe Date/Time: Nov 28 2017 12:31P Dictated by : MAHOGANY ECHAVARRIA MD This examination was interpreted and the report reviewed and electronically signed by: MAHOGANY ECHAVARRIA MD on Nov 28 2017 12:32PM EST [id number] THERAPY NT Observed: 11/28/2017 Status: COMPLETED Source: [place] 9:55 AM [facility] REPOSITORY HNO ID: [id number] Author: Akanksha Boltonr/LDevonte Murdock Service: Occupational Therapy Author Type: Occupational Therapist Type: Therapy (PT/OT/Speech/Resp) Filed: 11/28/2017 9:56 AM Note Text: OCCUPATIONAL THERAPY MISSED VISIT SERVICE DATE: 11/28/2017 SERVICE TIME: 0950 to 0953 ROOM: [address] Treatment. Patient not seen due to Sleeping. SIGNATURE: JERMAINE Anand/Allie PATIENT NAME: Paloma Cannon DATE: November 28, 2017 TIME: 9:55 AM PAGER/CONTACT #:[phone] THERAPY NT Observed: 11/28/2017 Status: COMPLETED Source: [place] 9:33 AM [facility] REPOSITORY HNO ID: [id number] Author: Indra Hoyt Service: Physical Therapy Author Type: Rx Specialist Type: Therapy (PT/OT/Speech/Resp) Filed: 11/28/2017 9:34 AM Note Text: Attestation signed by Brenda SanchezPt) Kt at 11/28/2017 10:44 AM I reviewed and agree with the assessment as documented above. SIGNATURE: Brenda Meraz, RASHARD DATE: November 28, 2017 TIME: 10:44 AM PHYSICAL THERAPY MISSED VISIT SERVICE DATE: 11/28/2017 SERVICE TIME: 932 to 932 ROOM: [place] [address] Attempted Treatment. Patient not seen due to Test/Procedure. SIGNATURE: Indra Woods PTA PATIENT NAME: Paloma Cannon DATE: November 28, 2017 TIME: 9:34 AM PAGER/CONTACT #: [phone] CONSULT PROG Observed: 11/28/2017 Status: COMPLETED Source: [place] 9:32 AM [facility] REPOSITORY HNO ID: [id number] Author: Magdalena Daniels) Chano Molina Service: Vascular Medicine Author Type: [...] mg ORAL/FEEDING TUBE q 4 H PRN jcncxdkaeiPCMZE-dwbdtp-ixknbqkyk 10 mL oral liquid (BMX 1:1:1) 10 [...] and repeat aPTT tomorrow morning. Please call [facility] [phone] if not within therapeutic range Bival and Coumadin should overlap for a minimum of 5 days and until INR is therapeutic before Bival can be discontinued. aPTTs, CBC/INR daily in house Duration of treatment: assisted Upon discharge, INR management to be resumed by Vascular Medicine SIGNATURE: Magdalena Lewis APRN.CNP PATIENT NAME: Paloma Cannon DATE: November 28, 2017 TIME: 12:46 PM PAGER/CONTACT #: [phone] . PROTIME Collected: 11/28/2017 Status: F Source: [place] [address]:30 AM [facility] REPOSITORY TYPE CODE TESTS RESULT OUT OF RANGE REFERENCE UNITS LAB PSEC 9.7-13.0 sec High PT Sec 19.1 LAB INR 0.9-1.3 High PT INR 1.9 Result Comment: Vitamin K Antagonist (VKA) Therapeutic Range: INR 2 to 3 (Target INR of 2.5) Note: For patients treated with VKA drugs, such as warfarin, the [place] [employer]icians 2012 Guideline recommends [...] Chest 2012, 141:7S-47S Diogenes RA, et al. [facility] 2017, 70: 252-289 Performed By: #### PT, PTT, CBC, RFP #### [facility] [place] [id number] APTT Collected: 11/28/2017 Status: F Source: [place] 5:30 AM [facility] REPOSITORY TYPE CODE TESTS RESULT OUT [...] By: #### PT, PTT, CBC, RFP #### [facility] [address] [place], [place] [address] CBC Collected: 11/28/2017 Status: F Source: [place] 5:30 AM [facility] REPOSITORY TYPE CODE TESTS RESULT OUT [...] By: #### PT, PTT, CBC, RFP #### [facility] [address] [place], [place] [address] RENAL FUNCTION PANEL Collected: 11/28/2017 Status: F Source: [place] 5:30 AM [facility] REPOSITORY TYPE CODE TESTS RESULT OUT OF REFERENCE UNITS RANGE LAB ALB 3.9-4.9 g/dL Low Albumin 3.4 LAB CA 8.5-10.2 mg/dL Calcium, Total 8.7 LAB PHOS 2.7-4.8 mg/dL Phosphorus 3.9 LAB GLU 74-99 mg/dL Glucose High 108 Result Comment: The [place] [employer] (ADA) provides guidance for cutoff [...] Standards of Medical Care in Diabetes 2016, [place] [employer]. Diabetes Care. 2016.39(Suppl 1). LAB [...] By: #### PT, PTT, CBC, RFP #### [facility] [address] [place] [address] CONSULT PROG Observed: 11/27/2017 Status: COMPLETED Source: [place] 4:37 PM [facility] REPOSITORY HNO ID: [id number] Author: Justina Pollard (Pa) Service: Hematology Author Type: Physician Reprint Sorter Type: Consult Progress Note Filed: 11/27/2017 4:40 [...] mg ORAL/FEEDING TUBE q 4 H PRN lfiobqylzuWKMVH-wnbsyc-wxbvljiyv 10 mL oral liquid (BMX 1:1:1) 10 [...] IR guided intervention (initially on 10/23 at [facility] and 10/26 here at [facility]. ? # Antiphospholipid antibody syndrome -recent?home therapy [...] November 27, 2017 TIME: 4:37 PM PAGER: [phone] CASE MANAGEM Observed: 11/27/2017 Status: COMPLETED Source: [place] 2:23 PM [facility] REPOSITORY O ID: [id number] Author: Jacinta Aguilar (Rn) JEFF Olmedo Service: [...] Will need precert. Per TEENA Borrero Main AKILAH Gutiérrez (p) [phone] unable to accept. Peyman Barker would request pt to receive aphersis in house prior to dc. Primary team informed and will try to accommodate. Per , at dc pt will need apheresis q 2 weeks indefinitely and close daily lab montoring of blood status for possible need for transfusion . Current on 5LO/, has home O2 2L 02 via [employer]. Yang MAZA is Elsa Matos (p) - updated on dc plan today. Per bolivar Hunter phone # is [phone]. .CM to continue to follow SIGNATURE: Jacinta Olmedo RN PATIENT NAME: Paloma Cannon DATE: November 27, 2017 TIME: 2:23 PM PAGER/CONTACT #: [phone] PROCEDURE Observed: 11/27/2017 Status: COMPLETED Source: [place] 1:36 PM [facility] REPOSITORY HNO ID: [id number] Author: Lisseth Claudio MD Service: Apheresis Author [...] RN Treatment Completed by Apheresis Nurse: [facility] STAFF PHYSICIAN NOTE OF PERSONAL INVOLVEMENT [...] MD November 27, 2017 3:50 PM Pager: [phone] CASE MANAGEM Observed: 11/27/2017 Status: COMPLETED Source: [place] 12:42 PM [facility] [place] REPOSITORY HNO ID: [id number] Author: Cherrie Loaiza (Asst) Service: Care Management Author Type: Resource Center Reprint Sorter Type: Care Mgt Progress Note Filed: 11/27/2017 12:43 PM Note Text: CARE MANAGEMENT PROGRESS NOTE SERVICE DATE: 11/27/2017 SERVICE TIME: 12:03 LOS: 33 days IM letter given to patient on 11/27/17. SIGNATURE: Asst Xiomara PATIENT NAME: Paloma Cannon DATE: November 27, 2017 TIME: 12:42 PM PAGER/CONTACT #: [phone] PROGRESS Observed: 11/27/2017 Status: COMPLETED Source: [place] 12:31 PM [facility] REPOSITORY HNO ID: [id number] Author: Olga Reyez Service: General Internal Medicine Author Type: Resident Type: Progress Notes Filed: 11/27/2017 12:40 PM Note Text: Attestation signed by Zhou Lang at 11/27/2017 5:52 PM [facility] STAFF PHYSICIAN NOTE OF PERSONAL INVOLVEMENT [...] if helpful. SIGNATURE: Zhou Lang MD PAGER: [phone] DATE of SERVICE: 11/27/2017 TIME of SERVICE: 5:44 PM RAF A PROGRESS NOTE For questions regarding this patient today please page [phone] After 5 pm on weekdays and 3pm on weekends and holidays please page correspondent pager [phone] SERVICE DATE: 11/27/2017 SERVICE TIME: 12:32 PM [...] mg ORAL/FEEDING TUBE q 4 H PRN xitvxdvkkpMQGKM-agpumq-xcqljloue 10 mL oral liquid (BMX 1:1:1) 10 [...] (97.4 ?F) Oral 86 18 92 % 11/26/172033 142/85 - - 89 - - 11/26/17 [...] IR emobolization of left L3 artery at [facility] on 10/23 IR embolization of left L2 [...] 11/03, 11/13 (heme following); patient is on j5nurri (Mondays), next scheduled for 11/27 11/22: started [...] painin morning, access site for embolization at [facility], no erythema or induration appreciated on exam, exquisitely TTP Groin study showed no signs of PSA, known AV fistula visualized with retrograde flow, vascular med aware- no further recs 10/28: pain less severe, no physical exam findings Repeat Leg DVT shows no pseudoaneurysm Likely due to nerve compression/RP hematoma causing compressive symtpoms S/p R groin drain placed at [facility] on 10/24 s/p L [facility] during embolization on 10/26 Plan: - repeat [...] November 27, 2017 TIME: 12:32 PM PAGER: [phone] THERAPY NT Observed: 11/27/2017 Status: COMPLETED Source: [place] 10:41 AM [facility] REPOSITORY HNO ID: [id number] Author: Tamiko (Pt) Adelaida Service: Physical Therapy Author Type: Physical Therapist Type: Therapy (PT/OT/Speech/Resp) Filed: 11/27/2017 10:46 AM Note Text: Physical Therapy Wound/Lymph Treatment SERVICE DATE: 11/27/2017 SERVICE TIME: 49 to 1015 ROOM: [place] [address] Disposition: Acute Rehab Recommended Discharge Disposition Comments: [...] Patient TREATMENT INTERVENTIONS: Interventions Provided: Manual Therapy (05058) Manual Therapy (79680) Treatment Minutes: 25 2 units Skilled Intervention: [...] 27, 2017 TIME: 10:41 AM PAGER/CONTACT #: [phone] CONSULT PROG Observed: 11/27/2017 Status: COMPLETED Source: [place] 10:33 AM [facility] REPOSITORY HNO ID: [id number] Author: Magdalena (Elliott) Chano Molina Service: Vascular [...] mg ORAL/FEEDING TUBE q 4 H PRN zmbruorqruMGIEQ-jybwuf-axitgjjsd 10 mL oral liquid (BMX 1:1:1) 10 [...] not recommend imaging as it would not international exchange coordinator. Okay from standpoint to proceed w/ apheresis if it is needed. INR/aPTT will likely normalize (it has previously), but bival will become therapeutic within one hour after apheresis is completed. Plan discussed with Dr. Rodriguez: Day 5 of coumadin, INR 1.5 (2.0-3.0) Will give another 5mg of coumadin aPTT 57.2 (46-65) therapeutic, continue with 0.1mg/kg/hr and repeat aPTT tomorrow morning. Please call [facility] [phone] if not within therapeutic range Bival and Coumadin should overlap for a minimum of 5 days and until INR is therapeutic before Bival can be discontinued. INR will likely normalize after scheduled apheresis session on Monday aPTTs, CBC/INR daily in house Duration of treatment: assisted Upon discharge, INR management to be resumed by Vascular Medicine SIGNATURE: Magdalena Lewis APRN.SALES DEVELOPMENT CONSULTANT PATIENT NAME: Paloma Cannon DATE: November 27, 2017 TIME: 10:33 AM PAGER/CONTACT #: [phone] . THERAPY NT Observed: 11/27/2017 Status: COMPLETED Source: [place] 9:59 AM [facility] REPOSITORY O ID: [id number] Author: Indra Macias) [facility] Service: Physical Therapy Author Type: Rx Specialist Type: Therapy (PT/OT/Speech/Resp) Filed: 11/27/2017 10:06 AM Note Text: Attestation signed by Brenda Meraz at 11/27/2017 12:53 PM I reviewed and agree with the assessment as documented above. SIGNATURE: Brenda Meraz, PT DATE: November 27, 2017 TIME: 12:52 PM Physical Therapy Treatment SERVICE DATE: 11/27/2017 SERVICE TIME: 904 to 950 ROOM: [place] [address] Recommended Discharge Disposition: Acute Rehab Justification For [...] Diagnosis: Reduced mobility-other Interventions Provided: Therapeutic Activity (42823);Therapeutic Exercise (26281) Therapeutic Exercise (93440) Treatment Minutes: 15 1 unit Skilled Intervention(s): Patient instructed in and performed supine exercises for 10- 15 rep: AP, heelslides, hip abduction, Seated- AP, LAQ with minimal tactile and verbal cues. Patient required extra rest breaks due to fatigue and pain. Educated patient in reasoning for each exercise. Therapeutic Activity (40514) Treatment Minutes: 25 2 units Skilled Intervention(s): [...] PTA PATIENT NAME: Paloma Cannon DATE: November 27, 2017 TIME: 9:59 AM PAGER/CONTACT #: [phone] URINALYSIS WITH Collected: 11/27/2017 Status: F Source: [facility] 9:39 AM [facility] REPOSITORY TYPE CODE TESTS RESULT OUT OF RANGE REFERENCE UNITS LAB UCOL Yellow Color Yellow LAB [facility] Clear Clarity Abnormal Cloudy Alert LAB UGLUC Negative mg/dL Glucose, Urine Negative LAB UBIL Negative Bilirubin, Urine Negative LAB UKET Negative Ketones, Urine Negative LAB [facility] 1.005-1.030 Specific [place], Ur 1.018 LAB UHGB Negative Abnormal Hemoglobin/Blood, [...] Epithelial Cells Performed By: #### UAWMIC #### [facility] [address] [place], [place] [address] XR CHEST 1V FRONTAL Observed: 11/27/2017 Status: F Source: [facility] 7:52 AM [facility]IN [facility] REPOSITORY * * *Final Report* [...] Cardiomediastinal silhouette: Stable cardiomediastinal silhouette. Other: . Dopeman: PSCB Transcribe Date/Time: Nov 27 2017 10:03A Dictated by : STELLA COSME MD This examination was interpreted and the report reviewed and electronically signed by: STELLA COSME MD on Nov 27 2017 10:04AM EST [id number] CBC Collected: 11/27/2017 Status: F Source: [place] 5:16 AM [facility] REPOSITORY TYPE CODE TESTS RESULT OUT [...] Performed By: #### CBC, PT, PTT #### [facility] [address] [place], [place] [address] PROTIME Collected: 11/27/2017 Status: F Source: [place] 5:16 AM [facility] REPOSITORY TYPE CODE TESTS RESULT OUT OF RANGE REFERENCE UNITS LAB PSEC 9.7-13.0 sec High PT Sec 14.9 LAB INR 0.9-1.3 High PT INR 1.5 Result Comment: Vitamin K Antagonist (VKA) Therapeutic Range: INR 2 to 3 (Target INR of 2.5) Note: For patients treated with VKA drugs, such as warfarin, the [place] [employer] 2012 Guideline recommends [...] Chest 2012, 141:7S-47S Diogenes RA, et al. JACC 2017, 70: 252-289 Performed By: #### CBC, PT, PTT #### [place] [address] [place] [id number] APTT Collected: 11/27/2017 Status: F Source: [place] 5:16 AM [facility] REPOSITORY TYPE CODE TESTS RESULT OUT [...] Performed By: #### CBC, PT, PTT #### [place] [address] TYPE AND SCREEN Collected: 11/27/2017 Status: F Source: [place] 5:16 AM [facility] REPOSITORY TYPE CODE TESTS RESULT OUT OF REFERENCE UNITS RANGE LAB %ABR B ABO/RH(D) POSITIVE LAB % Antibody POS Screen Performed By: #### TSCR #### [place] [address] LACTATE Collected: 11/26/2017 Status: F Source: [place] 10:52 PM [facility] REPOSITORY TYPE CODE TESTS RESULT OUT OF REFERENCE UNITS RANGE LAB LACT 0.5-2.2 mmol/L Lactate 1.6 Performed By: #### LACT #### [place] [address] Observed: 11/26/2017 Status: F Source: [place] BLOOD CULTURE 9:13 PM [facility] REPOSITORY Culture Result - No growth 5 days Performed By: #### BLCUL #### [place] [address] LACTATE Collected: 11/26/2017 Status: F Source: [place] 7:26 PM [facility] REPOSITORY TYPE CODE TESTS RESULT OUT OF REFERENCE UNITS RANGE LAB LACT 0.5-2.2 mmol/L Unable Lactate to assay. Specimen improperly collected/handle d. Result Comment: Specimen collected in wrong container type. TEST REQUIRES A MARCUS TUBE. SPECIMEN WAS RECEIVED IN A GREEN SODIUM HEPARIN TUBE. NOTIFIED JEFF BAZZI OF THE NEED FOR A NEW ORDER AND RECOLLECTION. [facility] [id number] Account Credited Performed By: #### LACT #### [facility] [address] [place], [place] [address] XR CHEST 1V FRONTAL Observed: 11/26/2017 Status: F Source: [place] 6:13 PM [facility] REPOSITORY * * *Final Report* * * [...] silhouette: Stable prominent/mildly enlarged cardiomediastinal silhouette. Other: Dopeman: PSCB Transcribe Date/Time: Nov 26 2017 6:31P Dictated by : CARLA TORRES MD This examination was interpreted and the report reviewed and electronically signed by: CARLA TORRES MD on Nov 26 2017 6:33PM EST [id number] SEPSIS LACTATE Collected: 11/26/2017 Status: F Source: [place] 4:10 PM [facility] REPOSITORY TYPE CODE TESTS RESULT OUT OF REFERENCE UNITS RANGE LAB SLACTT <2.1 mmol/L High Sepsis 2.6 Lactate LAB VBGCOM Blood Gas Urgent Comm, Rajeev value Result Comment: SLACT LAB VCBWHO Notified Whom, Rajeev Called to and read back by Result Comment: AM[facility]IL[facility]UEVAR[facility] VCBDTE [id number] Notify Date, Rajeev LAB VCBTME [id number] Notify Time, Rajeev Performed By: #### SLACT #### [facility] [address] [place] [id number] HEMOGLOBIN Collected: 11/26/2017 Status: F Source: [place] 4:04 PM [facility] REPOSITORY TYPE CODE TESTS RESULT OUT OF REFERENCE UNITS RANGE LAB HGB 11.5-15.5 g/dL Low Hemoglobin 11.1 Performed By: #### HGB #### [place] [address] HEMOGLOBIN Collected: 11/26/2017 Status: F Source: [place] 3:34 PM [facility] REPOSITORY TYPE CODE TESTS RESULT OUT OF REFERENCE UNITS RANGE LAB HGB 11.5-15.5 g/dL Hemoglobin Unable to assay. Specimen improperly collected/handl ed. Result Comment: Specimen collected in wrong container type. TEST REQUIRES A LAVENDER TUBE. SPECIMEN WAS RECEIVED IN A DARK GREEN TUBE. NOTIFIED JEFF POLO OF THE ISSUE AND A NEED FOR A RECOLLECTION AND A NEW ORDER. K [id number] Account Credited Performed By: #### HGB #### [place] [address] NURSING PROG Observed: 11/26/2017 Status: COMPLETED Source: [place] 10:59 AM [facility] REPOSITORY HNO ID: [id number] Author: Edel (Rn) Abel RN Service: Nursing [...] WO IVCON Observed: 11/26/2017 Status: F Source: [place] 10:56 AM [facility] REPOSITORY * * *Final Report* * * DATE OF EXAM: Nov 26 2017 10:56AM [facility] [place] - CT ABD/PEL WO IVCON / [...] effusion IMPRESSION: STABLE LARGE LEFT RETROPERITONEAL HEMATOMA Dopeman: PSCB Transcribe Date/Time: Nov 26 2017 1:00P Dictated by : URSZULA WHARTON MD This examination was interpreted and the report reviewed and electronically signed by: URSZULA WHARTON MD on Nov 26 2017 1:06PM EST [id number] SEPSIS LACTATE Collected: 11/26/2017 Status: F Source: [place] 10:50 AM [facility] REPOSITORY TYPE CODE TESTS RESULT OUT OF REFERENCE UNITS RANGE LAB SLACTT <2.1 mmol/L High Sepsis 2.3 Lactate LAB VBGCOM Blood Gas Urgent Comm, Rajeev value Result Comment: SEPSIS LACT LAB VCBWHO Notified Whom, Rajeev Called to and read back by Result Comment: [facility] VCBDTE [id number] Notify Date, Rajeev LAB VCBTME Notify Time, Rajeev Performed By: #### SLACT #### [facility] [address] [place] [address] HEMOGLOBIN Collected: 11/26/2017 Status: F Source: [place] 10:09 AM [facility] REPOSITORY TYPE CODE TESTS RESULT OUT OF REFERENCE UNITS RANGE LAB HGB 11.5-15.5 g/dL Low Hemoglobin 11.4 Performed By: #### HGB #### [facility] [address] [place] [address] CONSULT PROG Observed: 11/26/2017 Status: COMPLETED Source: [place] 7:00 AM [facility] REPOSITORY HNO ID: [id number] Author: Afia Roman Service: Vascular Medicine Author [...] mg ORAL/FEEDING TUBE q 4 H PRN mdskdhthkzEQLBP-poyrbr-uqvtfzhdb 10 mL oral liquid (BMX 1:1:1) 10 [...] and repeat aPTT tomorrow morning. Please call [facility] [phone] if not within therapeutic range Bival and Coumadin should overlap for a minimum of 5 days and until INR is therapeutic before Bival can be discontinued. aPTTs, CBC/INR daily in house Duration of treatment: assisted Upon discharge, INR management to be resumed by Vascular Medicine ? Patient to be seen and discussed w/ SHAHRAM Almaraz Staff Saran Pan Fellow SIGNATURE: Morteza Pan MD PATIENT NAME: Paloma Cannon DATE: November 26, 2017 TIME: 7:00 AM PAGER/CONTACT #: [phone] . [facility] STAFF PHYSICIAN NOTE OF PERSONAL INVOLVEMENT [...] as appropriate. I have personally performed a xwfg-zz-annk assessment of the patient and I have discussed the case and management of the patient's care. STAFF PHYSICIAN: Afia Roman MD DATE OF SERVICE: November 26, 2017 TIME OF SERVICE: 11:38 AM PROGRESS Observed: 11/26/2017 Status: COMPLETED Source: [place] 5:52 AM [facility] REPOSITORY O ID: [id number] Author: Thomas Esteban Service: General Internal Medicine Author Type: Physician Type: Progress Notes Filed: 11/26/2017 5:37 PM Note Text: RAF Terry PROGRESS NOTE After 5 pm on weekdays and 3pm on weekends and holidays please page correspondent pager [phone] SERVICE DATE: 11/26/2017 SERVICE TIME: 6:48 PM [...] mg ORAL/FEEDING TUBE q 4 H PRN rkhhnngfdzKJINE-awjeco-rhjjkanre 10 mL oral liquid (BMX 1:1:1) 10 [...] IR emobolization of left L3 artery at [facility] on 10/23 IR embolization of left L2 [...] 11/03, 11/13 (heme following); patient is on [id number] (Mondays), next scheduled for 11/27 11/22: started [...] painin morning, access site for embolization at [facility], no erythema or induration appreciated on exam, exquisitely TTP Groin study showed no signs of PSA, known AV fistula visualized with retrograde flow, vascular med aware- no further recs 10/28: pain less severe, no physical exam findings Repeat Leg DVT shows no pseudoaneurysm Likely due to nerve compression/RP hematoma causing compressive symtpoms S/p R groin drain placed at [facility] on 10/24 s/p L [facility] during embolization on 10/26 Plan: - repeat [...] November 26, 2017 TIME: 6:48 AM PAGER: [phone] [facility] STAFF PHYSICIAN NOTE OF PERSONAL INVOLVEMENT [...] CARE COORDINATION: SIGNATURE: Thomas Esteban MD PAGER: [phone] DATE of SERVICE: 11/26 TIME of SERVICE: [...] lactate monitor closely d/w nursing staff AND housestaff Thomas Esteban MD 5:30PM CBC Collected: 11/26/2017 Status: F Source: [place] 5:14 AM [facility] REPOSITORY TYPE CODE TESTS RESULT OUT [...] By: #### CBC, PT, PTT, RFP #### [facility] [address] [place] [address] PROTIME Collected: 11/26/2017 Status: F Source: [place] 5:14 AM [facility] REPOSITORY TYPE CODE TESTS RESULT OUT OF RANGE REFERENCE UNITS LAB PSEC 9.7-13.0 sec High PT Sec 14.3 LAB INR 0.9-1.3 High PT INR 1.4 Result Comment: Vitamin K Antagonist (VKA) Therapeutic Range: INR 2 to 3 (Target INR of 2.5) Note: For patients treated with VKA drugs, such as warfarin, the [place] [employer]icians 2012 Guideline recommends [...] Chest 2012, 141:7S-47S Diogenes RA, et al. [facility] 2017, 70: 252-289 Performed By: #### CBC, PT, PTT, RFP #### [facility] [address] [place] [id number] APTT Collected: 11/26/2017 Status: F Source: [place] 5:14 AM [facility] REPOSITORY TYPE CODE TESTS RESULT OUT [...] By: #### CBC, PT, PTT, RFP #### [facility] [address] [id number] RENAL FUNCTION PANEL Collected: 11/26/2017 Status: F Source: [place] 5:14 AM [facility] REPOSITORY TYPE CODE TESTS RESULT OUT OF REFERENCE UNITS RANGE LAB ALB 3.9-4.9 g/dL Low Albumin 3.3 LAB CA 8.5-10.2 mg/dL Calcium, Total 8.7 LAB PHOS 2.7-4.8 mg/dL Phosphorus 3.9 LAB GLU 74-99 mg/dL Glucose 75 Result Comment: The [place] [employer] (ADA) provides guidance for cutoff [...] Standards of Medical Care in Diabetes 2016, [place] [employer]. Diabetes Care. 2016.39(Suppl 1). LAB [...] By: #### CBC, PT, PTT, RFP #### [facility] [address] [place], [place] [address] PROGRESS Observed: 11/25/2017 Status: COMPLETED Source: [place] 9:47 PM [facility] REPOSITORY HNO ID: [id number] Author: Thomas Esteban Service: General Internal Medicine Author Type: Physician Type: Progress Notes Filed: 11/26/2017 9:07 AM Note Text: RAF Terry PROGRESS NOTE For questions regarding this patient today please page [phone] After 5 pm on weekdays and 3pm on weekends and holidays please page correspondent pager [phone] SERVICE DATE: 11/25/2017 SERVICE TIME: 9:48 PM [...] mg ORAL/FEEDING TUBE q 4 H PRN mnsabbqhmsMPNBC-dqoggk-smrjlgpjp 10 mL oral liquid (BMX 1:1:1) 10 [...] INTAKE/OUTPUT Intake/Output Summary (Last 24 hours) at 11/25/17 2148 Last data filed at 11/25/17 1800 Gross [...] IR emobolization of left L3 artery at [facility] on 10/23 IR embolization of left L2 [...] 11/03, 11/13 (heme following); patient is on x0oivas (Mondays) schedule outpatient 11/22: starting bivalirudin Plan: Holding Cytoxan 75 mg in setting of worsening thrombocytopenia Continue prednisone 40 mg with bactrim ppx Appreciate hematology and recs c/w with bivalirudin and start coumadin bridge. Bivalirudin and coumadin should overlap for a minimum of 5 days until INR is therapeutic before Bivalirudin can be discontinued - CAPRICE (acute kidney injury) (HCC) CAPRICE on CKD III, 2/ contrast, now requiring dialysis First HD at [facility] on 10/25 with tunneled dialysis catheter placement [...] products. 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 - Left groin pain 10/27: C/o acute pain this morning, access site for embolization at [facility], no erythema or induration appreciated on exam, exquisitely TTP Groin study showed no signs of PSA, known AV fistula visualized with retrograde flow, vascular med aware- no further recs 10/28: pain less severe, no physical exam findings Repeat Leg DVT shows no pseudoaneurysm Likely due to nerve compression/RP hematoma causing compressive symtpoms S/p R groin drain placed at [facility] on 10/24 s/p L [facility] during embolization on 10/26 Plan: - Pain management-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 [facility] - Will continue to wean dilaudid [...] November 25, 2017 TIME: 9:48 PM PAGER: [phone] [facility] STAFF PHYSICIAN NOTE OF PERSONAL INVOLVEMENT [...] CARE COORDINATION: SIGNATURE: Thomas Esteban MD PAGER: [phone] DATE of SERVICE: 11/25 TIME of SERVICE: 9am PROGRESS Observed: 11/25/2017 Status: COMPLETED Source: [place] 9:09 PM [facility] REPOSITORY HNO ID: [id number] Author: Thomas Esteban Service: General Internal Medicine Author Type: Physician Type: Progress Notes Filed: 11/25/2017 9:14 PM Note Text: brief staff note 27F wt catastrophic APS and recent RP bleed on 10/23 s/p embolization of L 2/3 art. had been off AC dt RP bleed and severe thrombocytopenia. Thrombocytopenia resolving after Endplate. now on Bival + coumadin. tolerating well. contd coumadin 2.5mg tonite. monitor CBC and INR daily CAPRICE on CKD - stable creatinine abd cramps that have improved after start of levsin Thomas Esteban MD pager [phone] 11/25 9am CONSULT PROG Observed: 11/25/2017 Status: COMPLETED Source: [place] 7:52 AM [facility] REPOSITORY HNO ID: [id number] Author: Afia Roman Service: Vascular Medicine Author [...] mg ORAL/FEEDING TUBE q 4 H PRN bdwawdbsawFAHGJ-keildw-wqkfxmmlh 10 mL oral liquid (BMX 1:1:1) 10 [...] and repeat aPTT tomorrow morning. Please call [facility] [phone] if not within therapeutic range Bival and Coumadin should overlap for a minimum of 5 days and until INR is therapeutic before Bival can be discontinued. aPTTs, CBC/INR daily in house Duration of treatment: assisted Upon discharge, INR management to be resumed by Vascular Medicine Patient to be seen and discussed w/ DrSHAHRAM Dewey Staff Saran Pan Fellow SIGNATURE: Morteza Pan MD PATIENT NAME: Paloma Cannon DATE: November 25, 2017 TIME: 7:53 AM PAGER/CONTACT #: [phone] . [facility] STAFF PHYSICIAN NOTE OF PERSONAL INVOLVEMENT IN CARE I have reviewed the documentation obtained and documented by Dr. Pan and have reviewed and updated the problem list as appropriate. I have personally performed a aeul-lt-tjxu assessment of the patient and I have discussed the case and management of the patient's care. STAFF PHYSICIAN: Afia Roman MD DATE OF SERVICE: November 25, 2017 TIME OF SERVICE: 1:54 PM CBC Collected: 11/25/2017 Status: F Source: [place] 4:29 AM [facility] REPOSITORY TYPE CODE TESTS RESULT OUT [...] Performed By: #### CBC, PT, PTT #### [facility] [address] [place], [place] [address] PROTIME Collected: 11/25/2017 Status: F Source: [place] 4:29 AM [facility] REPOSITORY TYPE CODE TESTS RESULT OUT OF RANGE REFERENCE UNITS LAB PSEC 9.7-13.0 sec High PT Sec 14.3 LAB INR 0.9-1.3 High PT INR 1.4 Result Comment: Vitamin K Antagonist (VKA) Therapeutic Range: INR 2 to 3 (Target INR of 2.5) Note: For patients treated with VKA drugs, such as warfarin, the [place] [employer] Chest Physicians 2012 Guideline recommends [...] Chest 2012, 141:7S-47S Diogenes RA, et al. [facility] 2017, 70: 252-289 Performed By: #### CBC, PT, PTT #### [facility] [address] [place], [place] [address] APTT Collected: 11/25/2017 Status: F Source: [place] 4:29 AM [facility] REPOSITORY TYPE CODE TESTS RESULT OUT [...] Performed By: #### CBC, PT, PTT #### [facility] [address] [facility] [place], [place] [id number] THERAPY NT Observed: 11/24/2017 Status: COMPLETED Source: [place] 3:06 PM [facility] REPOSITORY HNO ID: [id number] Author: Tamiko SanchezPtDevonte Sno Service: Physical Therapy Author Type: Physical Therapist Type: Therapy (PT/OT/Speech/Resp) Filed: 11/24/2017 3:12 PM Note Text: Physical Therapy Wound/Lymph Treatment SERVICE DATE: 11/24/2017 SERVICE TIME: 1433 to 1459 ROOM: [place] [address] Recommended Discharge Disposition Comments: will require further [...] Patient TREATMENT INTERVENTIONS: Interventions Provided: Manual Therapy (98317) Manual Therapy (17736) Treatment Minutes: 26 2 units Skilled Intervention: [...] 24, 2017 TIME: 3:06 PM PAGER/CONTACT #: [phone] THERAPY NT Observed: 11/24/2017 Status: COMPLETED Source: [place] 2:58 PM [facility] REPOSITORY HNO ID: [id number] Author: Yue Uriostegui Service: Occupational Therapy Author Type: Occupational Therapist Type: Therapy (PT/OT/Speech/Resp) Filed: 11/24/2017 2:58 PM Note Text: OCCUPATIONAL THERAPY MISSED VISIT SERVICE DATE: 11/24/2017 SERVICE TIME: 1453 to 1453 ROOM: [facility] Attempted Treatment. Patient not seen due to Another service at bedside- working with PT. Will re-attempt as able. SIGNATURE: JERMAINE Maldonado/Allie PATIENT NAME: Paloma Cannon DATE: November 24, 2017 TIME: 2:58 PM PAGER/CONTACT #:[phone] PROGRESS Observed: 11/24/2017 Status: COMPLETED Source: [place] 2:37 PM [facility] REPOSITORY HNO ID: [id number] Author: Ros Wayne Service: General Internal Medicine Author Type: Physician Type: Progress Notes Filed: 11/24/2017 9:05 PM Note Text: RAF Terry PROGRESS NOTE For questions regarding this patient today please page [phone] After 5 pm on weekdays and 3pm on weekends and holidays please page correspondent pager [phone] SERVICE DATE: 11/24/2017 SERVICE TIME: 2:41 PM [...] CONSTULOSE) 20 g ORAL q 2 H meihtbaenhFJSFU-kkqlpd-btkzioxnq 10 mL oral liquid (BMX 1:1:1) 10 [...] with VKA drugs, such as warfarin, the [place] [employer]icians 2012 Guideline recommends [...] Chest 2012, 141:7S-47S Diogenes RA, et al. [facility] 2017, 70: 252-289 ASSESSMENT AND PLAN: Active Hospital Problems Diagnosis - Retroperitoneal hematoma Retroperitoneal bleed: s/p 7 units PRBCs s/p IR emobolization of left L3 artery at [facility] on 10/23 IR embolization of left L2 [...] 11/03, 11/13 (heme following); patient is on [id number] (Mondays) schedule outpatient 11/22: starting bivalirudin Plan: [...] contrast, now requiring dialysis First HD at [facility] on 10/25 with tunneled dialysis catheter placement [...] this morning, access site for embolization at [facility], no erythema or induration appreciated on exam, exquisitely TTP Groin study showed no signs of PSA, known AV fistula visualized with retrograde flow, vascular med aware- no further recs 10/28: pain less severe, no physical exam findings Repeat Leg DVT shows no pseudoaneurysm Likely due to nerve compression/RP hematoma causing compressive symtpoms S/p R groin drain placed at [facility] on 10/24 s/p L [facility] during embolization on 10/26 Plan: - Pain management-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 v. Acute rehabilitation center This note is not final until staffed by the attending physician and authenticated by responsible provider. SIGNATURE: Olga Reyez MD PATIENT NAME: Paloma Cannon DATE: November 24, 2017 TIME: 2:41 PM PAGER: [phone] RAF Terry ATTENDING NOTE: Chart reviewed, patient [...] resumed on 11/13 CAPRICE on CKD on admission:?renal function is currently [...] 11/25 Ros Wayne MD FACP Attending, pager [phone] PT ED Observed: 11/24/2017 Status: COMPLETED Source: [place] 1:58 PM [facility] [place] REPOSITORY HNO ID: [id number] Author: Estela Lester (Pharmacist) Service: Pharmacy Author [...] depending on PLEX Outpatient follow-up plan: Other: [facility] (Estela Lester, PharmD [phone]) Indication for warfarin: deep vein thrombosis (DVT) [...] Outpatient Follow-up: [facility] (Estela Lester, PharmD [phone]) Nimo Swanson Pharmacist CONSULT PROG Observed: 11/24/2017 Status: COMPLETED Source: [place] 12:56 PM [facility] [place] REPOSITORY HNO ID: [id number] Author: Justina Pollard (Pa) Service: Hematology Author Type: Physician Reprint Sorter Type: Consult Progress Note Filed: 11/24/2017 4:22 [...] (COUMADIN) 5 mg ORAL DAILY - WARFARIN xcfrhknpskUQPDI-puihtw-uonhzuvzi 10 mL oral liquid (BMX 1:1:1) 10 [...] IR guided intervention (initially on 10/23 at [facility] and 10/26 here at [facility]. ? # Antiphospholipid antibody syndrome -recent?home therapy [...] November 24, 2017 TIME: 12:56 PM PAGER: [phone] CT ABD/PEL WO IVCON Observed: 11/24/2017 Status: F Source: [place] 10:20 AM [facility] REPOSITORY * * *Final Report* * * DATE OF EXAM: Nov 24 2017 10:20AM [facility] [place] - CT ABD/PEL WO IVCON / [...] INFECTION. NO SIGNIFICANT INTERVAL CHANGE OTHERWISE DETAILED. Dopeman: MURTAZA Transcribe Date/Time: Nov 24 2017 10:32A Dictated by : FANY SILVER MD This examination was interpreted and the report reviewed and electronically signed by: LYDIA FARIA DO on Nov 24 2017 12:44PM EST [id number] THERAPY NT Observed: 11/24/2017 Status: COMPLETED Source: [place] 10:02 AM [facility] REPOSITORY O ID: [id number] Author: Indra Macias) [facility] Service: Physical Therapy Author Type: Rx Specialist Type: Therapy (PT/OT/Speech/Resp) Filed: 11/24/2017 10:02 AM Note Text: Attestation signed by Jocelyn Coleman at 11/24/2017 5:08 PM I reviewed and agree with the documentation corresponding to this therapy visit. SIGNATURE: Jocelyn Coleman PT DATE: November 24, 2017 TIME: 5:08 PM PHYSICAL THERAPY MISSED VISIT SERVICE DATE: 11/24/2017 SERVICE TIME: 1002 to 1002 ROOM: [place] [address] Attempted Treatment. Patient not seen due to Test/Procedure (CT scan). SIGNATURE: Indra Woods PTA PATIENT NAME: Paloma Cannon DATE: November 24, 2017 TIME: 10:02 AM PAGER/CONTACT #: [phone] URINALYSIS WITH Collected: 11/24/2017 Status: F Source: [facility] 9:54 AM [facility] REPOSITORY TYPE CODE TESTS RESULT OUT OF RANGE REFERENCE UNITS LAB UCOL Yellow Color Yellow LAB [facility] Clear Clarity Clear LAB UGLUC Negative mg/dL Glucose, Urine Negative LAB UBIL Negative Bilirubin, Urine Negative LAB UKET Negative Ketones, Urine Negative LAB USPG 1.005-1.030 Specific [place], Ur 1.020 LAB UHGB Negative Abnormal Hemoglobin/Blood, [...] 1-3 Hyaline Performed By: #### UAWMIC #### [facility] [address] [place], [place] [address] TYPE AND SCREEN Collected: 11/24/2017 Status: F Source: [place] 9:45 AM [facility] REPOSITORY TYPE CODE TESTS RESULT OUT OF REFERENCE UNITS RANGE LAB %ABR B ABO/RH(D) POSITIVE LAB % Antibody POS Screen Performed By: #### TSCR #### [facility] [address] [place], [place] [address] CONSULT PROG Observed: 11/24/2017 Status: COMPLETED Source: [place] 8:34 AM [facility] REPOSITORY HNO ID: [id number] Author: Magdalena (Elliott) Chano Molina Service: Vascular [...] (COUMADIN) 5 mg ORAL DAILY - WARFARIN kltexzemwbKVPYK-lrmlkh-hgjvncanq 10 mL oral liquid (BMX 1:1:1) 10 [...] and repeat aPTT tomorrow morning. Please call [facility] [phone] if not within therapeutic range Bival and Coumadin should overlap for a minimum of 5 days and until INR is therapeutic before Bival can be discontinued. aPTTs, CBC/INR daily in house Duration of treatment: assisted Upon discharge, INR management to be resumed by Vascular Medicine SIGNATURE: Magdalena Lewis APRN.CNP PATIENT NAME: Paloma Cannon DATE: November 24, 2017 TIME: 8:35 AM PAGER/CONTACT #: [phone] . CBC Collected: 11/24/2017 Status: F Source: [place] 6:53 AM [facility] REPOSITORY TYPE CODE TESTS RESULT OUT [...] By: #### CBC, PT, PTT, BMP #### [facility] [address] [place], [place] [address] PROTIME Collected: 11/24/2017 Status: F Source: [place] 6:53 AM [facility] REPOSITORY TYPE CODE TESTS RESULT OUT OF RANGE REFERENCE UNITS LAB PSEC 9.7-13.0 sec High PT Sec 16.0 LAB INR 0.9-1.3 High PT INR 1.6 Result Comment: Vitamin K Antagonist (VKA) Therapeutic Range: INR 2 to 3 (Target INR of 2.5) Note: For patients treated with VKA drugs, such as warfarin, the [place] [employer]icians 2012 Guideline recommends [...] Chest 2012, 141:7S-47S Diogenes RA, et al. [facility] 2017, 70: 252-289 Performed By: #### CBC, PT, PTT, BMP #### [facility] [address] [place], [place] [address] APTT Collected: 11/24/2017 Status: F Source: [place] 6:53 AM [facility] REPOSITORY TYPE CODE TESTS RESULT OUT [...] By: #### CBC, PT, PTT, BMP #### [facility] [address] [place] [address] BASIC METABOLIC PANL Collected: 11/24/2017 Status: F Source: [place] 6:53 AM [facility] REPOSITORY TYPE CODE TESTS RESULT OUT OF REFERENCE UNITS RANGE LAB GLU 74-99 mg/dL Glucose 74 Result Comment: The [place] [employer] (ADA) provides guidance for cutoff [...] Standards of Medical Care in Diabetes 2016, [place] [employer]. Diabetes Care. 2016.39(Suppl 1). LAB [...] By: #### CBC, PT, PTT, BMP #### [facility] [address] [place], [place] [address] CONSULT PROG Observed: 11/23/2017 Status: COMPLETED Source: [place] 9:57 PM [facility] REPOSITORY HNO ID: [id number] Author: Lis Tracy Service: Physical Medicine AND Rehabilitation Author Type: Physician Type: Consult Progress Note Filed: 11/23/2017 10:18 PM Note Text: Physical Medicine and Rehabilitation Consult progress note November 23, 2017 Updates: On bival gtt, first dose of coumadin tonight. Ashley therapies. 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 She was transferred to [facility] for further stabilization. She underwent urgent Left [...] THERAPY NT Observed: 11/23/2017 Status: COMPLETED Source: [place] 3:50 PM [facility] [place] REPOSITORY O ID: [id number] Author: Tamiko (Pt) Adelaida Service: Physical Therapy Author Type: Physical Therapist Type: Therapy (PT/OT/Speech/Resp) Filed: 11/23/2017 3:57 PM Note Text: Physical Therapy Wound/Lymph Treatment SERVICE DATE: 11/23/2017 SERVICE TIME: 1340 to 1408 ROOM: [place] [address] Recommended Discharge Disposition Comments: will require further [...] Patient TREATMENT INTERVENTIONS: Interventions Provided: Manual Therapy (69521) Manual Therapy (50527) Treatment Minutes: 28 2 units Skilled Intervention: [...] details for this therapy evaluation/treatment. SIGNATURE: Tamiko Son, PT PATIENT NAME: Paloma Cannon DATE: November 23, 2017 TIME: 3:50 PM PAGER/CONTACT #: [phone] PROGRESS Observed: 11/23/2017 Status: COMPLETED Source: [place] 2:26 PM [facility] REPOSITORY HNO ID: [id number] Author: Ros Wayne Service: General Internal Medicine Author Type: Physician Type: Progress Notes Filed: 11/23/2017 9:13 PM Note Text: RAF Terry PROGRESS NOTE For questions regarding this patient today please page [phone] After 5 pm on weekdays and 3pm on weekends and holidays please page correspondent pager [phone] SERVICE DATE: 11/23/2017 SERVICE TIME: 2:27 PM [...] (COUMADIN) 5 mg ORAL DAILY - WARFARIN jxolrgxugoHVPDG-oodnnk-tizwuotge 10 mL oral liquid (BMX 1:1:1) 10 [...] IR emobolization of left L3 artery at [facility] on 10/23 IR embolization of left L2 [...] 11/03, 11/13 (heme following); patient is on [id number] (Mondays) schedule outpatient 11/22: starting bivalirudin Plan: [...] contrast, now requiring dialysis First HD at [facility] on 10/25 with tunneled dialysis catheter placement [...] this morning, access site for embolization at [facility], no erythema or induration appreciated on exam, exquisitely TTP Groin study showed no signs of PSA, known AV fistula visualized with retrograde flow, vascular med aware- no further recs 10/28: pain less severe, no physical exam findings Repeat Leg DVT shows no pseudoaneurysm Likely due to nerve compression/RP hematoma causing compressive symtpoms S/p R groin drain placed at [facility] on 10/24 s/p L [facility] during embolization on 10/26 Plan: - Pain management-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 + ENDPLATE 11/09?+ 11/13 [...] Rehab Ros Wayne MD FACP Attending, pager [phone] CONSULT Observed: 11/23/2017 Status: COMPLETED Source: [place] 2:03 PM [facility] REPOSITORY HNO ID: [id number] Author: Michelle Daniels) Radha Service: Physical Medicine AND Rehabilitation Author Type: Nurse Practitioner Type: Consults Filed: 11/23/2017 2:04 PM Note Text: PMANDR consult received today (duplicate). Patient seen by Dr. Starr on 11/15/17 for PMANDR consult with recommendations for likely SNF. Please see consult for details. Will have pt seen for follow up. Thank you for consult. Please call with any questions. Michelle Garcia APRN.[facility] Physical Medicine and Rehabilitation pager [phone] NUTRITION Observed: 11/23/2017 Status: COMPLETED Source: [place] 9:35 AM [facility] REPOSITORY HNO ID: [id number] Author: Belem Woodward (Tech) Service: Nutrition Therapy Author Type: Equity Research Analyst Type: Nutrition Filed: 11/23/2017 9:37 AM Note [...] meals, according to nursing AN reports in [employer]. The patient reports; she is eating well [...] November 23, 2017 TIME: 9:35 AM PAGER: [phone] CBC Collected: 11/23/2017 Status: F Source: [place] 8:55 AM [facility] [place] REPOSITORY TYPE CODE TESTS RESULT OUT OF [...] 0.02 Performed By: #### CBC, PTT #### [facility] [address] [place], [place] [address] APTT Collected: 11/23/2017 Status: F Source: [place] 8:55 AM [facility] REPOSITORY TYPE CODE TESTS RESULT OUT [...] Hospital. Performed By: #### CBC, PTT #### [facility] [address] [place], [place] [address] CONSULT PROG Observed: 11/23/2017 Status: COMPLETED Source: [place] 8:38 AM [facility] REPOSITORY HNO ID: [id number] Author: Magdalena (Turning Machine Operator) Chano Molina Service: Vascular Medicine Author [...] hgb 11.8 aPTT 48.3 Current Facility-Administered Medications: kdjlnokalmQJFGL-qqchmi-ibrlqfrka 10 mL oral liquid (BMX 1:1:1) 10 [...] and repeat aPTT tomorrow morning. Please call [facility] [phone] if not within therapeutic range Bival and Coumadin should overlap for a minimum of 5 days and until INR is therapeutic before Bival can be discontinued. aPTTs, CBC/INR daily in house Duration of treatment: assisted SIGNATURE: Magdalena Lewis APRN.CNP PATIENT NAME: Paloma Cannon DATE: November 23, 2017 TIME: 10:50 AM PAGER/CONTACT #: [phone] . APTT Collected: 11/23/2017 Status: F Source: [place] 4:28 AM [facility] [place] REPOSITORY TYPE CODE TESTS RESULT OUT OF [...] [facility]. Performed By: #### PTT #### [facility] [address] [place], [place] [address] APTT Collected: 11/23/2017 Status: F Source: [place] 12:28 AM [facility] REPOSITORY TYPE CODE TESTS RESULT OUT [...] [facility]. Performed By: #### PTT #### [facility] [address] [place], [place] [address] APTT Collected: 11/22/2017 Status: F Source: [place] 9:08 PM [facility] REPOSITORY TYPE CODE TESTS RESULT OUT [...] [facility]. Performed By: #### PTT #### [facility] [address] [place], [place] [address] APTT Collected: 11/22/2017 Status: F Source: [place] 6:45 PM [facility] REPOSITORY TYPE CODE TESTS RESULT OUT OF REFERENCE UNITS RANGE LAB APTT 23.0-32.4 sec APTT Duplicate request Result Comment: Account Credited Performed By: #### PTT #### [facility] [address] [place], [place] [address] PTT,ANTICOAG THERAPY Collected: 11/22/2017 Status: F Source: [place] 6:45 PM [facility] REPOSITORY TYPE CODE TESTS RESULT OUT [...] [facility]. Performed By: #### PTTAC #### [facility] [address] [place], [place] [address] PROGRESS Observed: 11/22/2017 Status: COMPLETED Source: [place] 5:48 PM [facility] REPOSITORY HNO ID: [id number] Author: Ros Wayne Service: General Internal Medicine Author Type: Physician Type: Progress Notes Filed: 11/22/2017 8:39 PM Note Text: RAF Terry PROGRESS NOTE For questions regarding this patient today please page [phone] After 5 pm on weekdays and 3pm on weekends and holidays please page correspondent pager [phone] SERVICE DATE: 11/22/2017 SERVICE TIME: 5:49 PM INTERVAL HISTORY: - No events overnight - increased gabapentin to 400 mg TID - started flexeril with improvement in pain symptoms - Uoutput ~900cc yesterday - refusing miralax. Approximately 2-3 days since last BM Labs Creatinine: 1.10-->1.40-->1.19-->1.29-->0.96-->1.1-->0.96-->0.88-->1.06-->1.08-->1.22-- >1.15-->1.26-->1.23-->1.25 Plt: 25-1u plt->34-->28-1u plt->34-->40-->26-1uplat->37-->43-->46-->42-->39-->45-->45-->50-->59 PLAN FOR TODAY - starting bivalirudin today - desaturation study required prior to discharge - PMANDR needs to reevaluate regarding disposition - c/w torsemide 20 mg qday MEDICATIONS: Current hospital medications: ubhpwkcwitGLKEH-kbxzcn-fdcnipqzj 10 mL oral liquid (BMX 1:1:1) 10 [...] IR emobolization of left L3 artery at [facility] on 10/23 IR embolization of left L2 [...] 11/03, 11/13 (heme following); patient is on [id number] (Mondays) schedule outpatient Plan: Holding Cytoxan 75 mg in setting of worsening thrombocytopenia Continue prednisone 60 mg with bactrim ppx Appreciate hematology and VM recs Plan is to start bivalrudin trial once platelets stabilize and bridge to coumadin - CAPRICE (acute kidney injury) (HCC) CAPRICE on CKD III, 2/ contrast, now requiring dialysis First HD at [facility] on 10/25 with tunneled dialysis catheter placement [...] this morning, access site for embolization at [facility], no erythema or induration appreciated on exam, exquisitely TTP Groin study showed no signs of PSA, known AV fistula visualized with retrograde flow, vascular med aware- no further recs 10/28: pain less severe, no physical exam findings Repeat Leg DVT shows no pseudoaneurysm Likely due to nerve compression/RP hematoma causing compressive symtpoms S/p R groin drain placed at [facility] on 10/24 s/p L [facility] during embolization on 10/26 Plan: - Pain management-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 [facility] - Will continue to wean dilaudid [...] November 22, 2017 TIME: 5:49 PM PAGER: [phone] RAF Terry ATTENDING NOTE: Chart reviewed, patient [...] 11/27 Ros Wayne MD FACP Attending, pager [phone] [facility] Observed: 11/22/2017 Status: COMPLETED Source: [place] 5:00 PM [facility] REPOSITORY HNO ID: [id number] Author: Negrito Kelley (Therapist) Miranda Service: Art [...] 22, 2017 TIME: 5:00 PM PAGER/CONTACT #: [phone] CONSULT PROG Observed: 11/22/2017 Status: COMPLETED Source: [place] 4:01 PM [facility] REPOSITORY HNO ID: [id number] Author: Justina Pollard (Pa) Service: Hematology Author Type: Physician Reprint Sorter Type: Consult Progress Note Filed: 11/22/2017 4:06 PM Note Text: CONSULT PROGRESS NOTE SERVICE DATE: 11/22/2017 CONSULTING SERVICE: Hematology Subjective INTERVAL HPI: PLT count was up to 59 K today Current hospital medications: ljmwehvgokPDXOO-hxvkvv-zwbkwwykx 10 mL oral liquid (BMX 1:1:1) 10 [...] IR guided intervention (initially on 10/23 at [facility] and 10/26 here at [facility]. ? # Antiphospholipid antibody syndrome -recent?home therapy [...] November 22, 2017 TIME: 4:01 PM PAGER: [phone] THERAPY NT Observed: 11/22/2017 Status: COMPLETED Source: [place] 3:27 PM [facility] [place] REPOSITORY HNO ID: [id number] Author: Tamiko (Pt) Adelaida Service: Physical Therapy Author Type: Physical Therapist Type: Therapy (PT/OT/Speech/Resp) Filed: 11/22/2017 3:32 PM Note Text: Physical Therapy Wound/Lymph Treatment SERVICE DATE: 11/22/2017 SERVICE TIME: 1430 to 1453 ROOM: [place] [address] Recommended Discharge Disposition Comments: will require further [...] Patient TREATMENT INTERVENTIONS: Interventions Provided: Manual Therapy (18630) Manual Therapy (31331) Treatment Minutes: 23 2 units Skilled Intervention: [...] 22, 2017 TIME: 3:27 PM PAGER/CONTACT #: [phone] CONSULT Observed: 11/22/2017 Status: COMPLETED Source: [place] 2:59 PM [facility] REPOSITORY HNO ID: [id number] Author: Lacey (Rn) JEFF Vicente Service: Wound [...] care evaluation and assessment was done with - Eduardo UBSCRN Position on arrival: back Type of Bed: [...] bariatric bed. (done). 3. Obtain TruVue boots (Schreiber # [id number]) and use while in bed to offload heels. 4. Obtain positioning wedge (Schreiber #[id number]) and use to offload coccyx with every 2 hour turns. 5. Continue skin prevention measures based on Festus risk assessment scores. Electronically Signed By: TIEN Delvalle RN CWCN [id number] No further visits from [facility]; please re-consult as needed. CONSULT PROG Observed: 11/22/2017 Status: COMPLETED Source: [place] 2:05 PM [facility] REPOSITORY HNO ID: [id number] Author: Paulette Gooden (Elliott) Davonte Service: Vascular [...] and walked 25 feet. Current Facility-Administered Medications: bbnlzfltwfERKSI-qovcwb-vzwljvzak 10 mL oral liquid (BMX 1:1:1) 10 [...] the setting of profound anemia requiring transfusion. VM recommended to hold AC for minimum 4 [...] bivalirudin (earliest tomorrow 11/23). SIGNATURE: Paulette Naranjo APRN.ELLIOTT PATIENT NAME: Paloma Cannon DATE: November 22, 2017 TIME: 2:05 PM PAGER/CONTACT #: [phone] . PROTIME Collected: 11/22/2017 Status: F Source: [place] 12:45 PM [facility] REPOSITORY TYPE CODE TESTS RESULT OUT OF RANGE REFERENCE UNITS LAB PSEC 9.7-13.0 sec PT Sec 10.9 LAB INR 0.9-1.3 PT INR 1.1 Result Comment: Vitamin K Antagonist (VKA) Therapeutic Range: INR 2 to 3 (Target INR of 2.5) Note: For patients treated with VKA drugs, such as warfarin, the [place] [employer]icians 2012 Guideline recommends [...] Chest 2012, 141:7S-47S Diogenes RA, et al. [facility] 2017, 70: 252-289 Performed By: #### PT, PTT #### [facility] [address] [place], [place] [address] APTT Collected: 11/22/2017 Status: F Source: [place] 12:45 PM [facility] REPOSITORY TYPE CODE TESTS RESULT OUT [...] Hospital. Performed By: #### PT, PTT #### [facility] [address] [place], [place] [id number] [facility] Observed: 11/22/2017 Status: COMPLETED Source: [place] 11:35 AM [facility] REPOSITORY HNO ID: [id number] Author: Kayla Stewart (Therapist) GINA Levin Service: [...] 04/18 02/16 Anxiety 07/19 07/19 Mood 07/13 0 Facial Behavior 1 - Neutral 0 - [...] 22, 2017 TIME: 4:15 PM PAGER/CONTACT #: [phone] CBC Collected: 11/22/2017 Status: F Source: [place] 4:50 AM [facility] REPOSITORY TYPE CODE TESTS RESULT OUT [...] nRBC <0.01 Performed By: #### CBC #### [facility] [address] [place], [place] [address] NURSING PROG Observed: 11/22/2017 Status: COMPLETED Source: [place] 4:09 AM [facility] REPOSITORY HNO ID: [id number] Author: Lisa (Rn) JEFF Bourgeois Service: Nursing Author Type: Registered Nurse Type: Nursing Progress Note Filed: 11/22/2017 4:11 AM Note Text: Nursing Progress Note Patient Name: Paloma Cannon Patient Location: H080 015/H080-16 Daily Note: Pt sleeping soundly majority of this night. PRN pain meds per MAR. On 3 L NC, satting wnl at [...] RN PROGRESS Observed: 11/21/2017 Status: COMPLETED Source: [place] 3:28 PM [facility] REPOSITORY O ID: [id number] Author: Ros Wayne Service: General Internal Medicine Author Type: Physician Type: Progress Notes Filed: 11/22/2017 6:22 AM Note Text: RAF Terry PROGRESS NOTE For questions regarding this patient today please page [phone] After 5 pm on weekdays and 3pm on weekends and holidays please page correspondent pager [phone] SERVICE DATE: 11/21/2017 SERVICE TIME: 3:28 PM [...] IR emobolization of left L3 artery at [facility] on 10/23 IR embolization of left L2 [...] 11/03, 11/13 (heme following); patient is on [id number] (Mondays) schedule outpatient Plan: Holding Cytoxan 75 mg in setting of worsening thrombocytopenia Continue prednisone 60 mg with bactrim ppx Appreciate hematology and VM recs Plan is to start bivalrudin trial once platelets stabilize and bridge to coumadin - CAPRICE (acute kidney injury) (HCC) CAPRICE on CKD III, 2/2 contrast, now requiring dialysis First HD at [facility] on 10/25 with tunneled dialysis catheter placement [...] this morning, access site for embolization at [facility], no erythema or induration appreciated on exam, exquisitely TTP Groin study showed no signs of PSA, known AV fistula visualized with retrograde flow, vascular med aware- no further recs 10/28: pain less severe, no physical exam findings Repeat Leg DVT shows no pseudoaneurysm Likely due to nerve compression/RP hematoma causing compressive symtpoms S/p R groin drain placed at [facility] on 10/24 s/p L [facility] during embolization on 10/26 Plan: - Pain management-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 v. Acute rehabilitation center This note is not final until staffed by the attending physician and authenticated by responsible provider. SIGNATURE: Olga Reyez MD PATIENT NAME: Paloma Cannon DATE: November 21, 2017 TIME: 3:28 PM PAGER: [phone] RAF Terry ATTENDING NOTE: Chart reviewed, patient seen and examined on 11/21 at 2pm and fernnades elements of the history and physical were [...] + Resume Bival soon, when OK with VM team Last PLEX was given on 11/13?and next?due 11/27 Cont Prednisone but decrease dose to 40mg qAM per Consulting teams + Addtl plans to follow ? Ros Wayne MD FACP Attending, pager [phone] ? THERAPY NT Observed: 11/21/2017 Status: COMPLETED Source: [place] 3:26 PM [facility] REPOSITORY HNO ID: [id number] Author: Tamiko (Pt) Adelaida Service: Physical Therapy Author Type: Physical Therapist Type: Therapy (PT/OT/Speech/Resp) Filed: 11/21/2017 3:31 PM Note Text: Physical Therapy Wound/Lymph Treatment SERVICE DATE: 11/21/2017 SERVICE TIME: 1417 to 1445 ROOM: [place] [address] Recommended Discharge Disposition Comments: will require further [...] Patient TREATMENT INTERVENTIONS: Interventions Provided: Manual Therapy (94320) Manual Therapy (01259) Treatment Minutes: 28 2 units Skilled Intervention: [...] 21, 2017 TIME: 3:26 PM PAGER/CONTACT #: [phone] CASE MANAGEM Observed: 11/21/2017 Status: COMPLETED Source: [place] 11:49 AM [facility] REPOSITORY HNO ID: [id number] Author: Jacinta SanchezRn) JEFF Olmedo Service: Care [...] need precert. .AwaitingPMANDR re-eval snf vs [facility]. Per Gissell Main AR Liason (p) [phone] unable to accept. Referal sent to [facility] (via [facility] as central number (p) [phone] and (f) [phone]) for review at direction of [facility] liason (pt agreeable) IF accepted, [facility] would request pt to receive aphersis in house prior to dc. Primary team informed and will try to accommodate. Per MD, at dc pt will need apheresis q 2 weeks indefinitely and close daily lab montoring of blood status for possible need for transfusion . Current on 3, has home O2 2L 02 via [facility]. [facility] is Elsa Matos (p) - updated on dc plan.Per Elsa, analiert phone # is [phone]. CM to continue to follow SIGNATURE: Jacinta Olmedo RN PATIENT NAME: Paloma Cannon DATE: November 21, 2017 TIME: 11:49 AM PAGER/CONTACT #: [phone] NURSING PROG Observed: 11/21/2017 Status: COMPLETED Source: [place] 11:05 AM [facility] CAMP[facility] REPOSITORY HNO ID: [id number] Author: Tiffani (Rn) JEFF Hernadez Service: (none) [...] THERAPY NT Observed: 11/21/2017 Status: COMPLETED Source: [place] 10:54 AM [facility] REPOSITORY O ID: [id number] Author: Indra Macias) [facility] Service: Physical Therapy Author Type: Rx Specialist Type: Therapy (PT/OT/Speech/Resp) Filed: 11/21/2017 11:03 AM Note Text: Attestation signed by Brenda Meraz at 11/21/2017 1:30 PM I reviewed and agree with the assessment as documented above. SIGNATURE: Brenda Meraz PT DATE: November 21, 2017 TIME: 1:29 PM Physical Therapy Treatment SERVICE DATE: 11/21/2017 SERVICE TIME: 0948 to 1047 ROOM: [place] [address] Recommended Discharge Disposition: Acute Rehab Justification For [...] Diagnosis: Reduced mobility-other Interventions Provided: Gait Training (40906);Therapeutic Activity (37810);Therapeutic Exercise (12917) Therapeutic Exercise (26316) Treatment Minutes: 15 1 unit Skilled Intervention(s): [...] in reasoning for each exercise. Therapeutic Activity (70013) Treatment Minutes: 18 1 unit Skilled Intervention(s): Instructed patient in log roll technique- using bed rail Instructed and assisted patient in supine to sit pushing with upper extremities to sit up- with HOB raised Education with importance of OOB activities and pacing activity. Transfer training from bed to BSC; BSC to with walker with cues for walker management, balance, foot placement, trunk alignment and body positioning. Static standing for hygiene with CGA with cues for knee extension, forward gaze, trunk alignment and balance Gait Training (88533) Treatment Minutes: 23 2 units Skilled Intervention(s): [...] 21, 2017 TIME: 10:54 AM PAGER/CONTACT #: [phone] PROGRESS Observed: 11/21/2017 Status: COMPLETED Source: [place] 9:46 AM [facility] REPOSITORY HNO ID: [id number] Author: Tiffani Hernadez (Rn), RN Service: (none) Author Type: Registered Nurse Type: Progress Notes Filed: 11/21/2017 9:47 AM Note Text: Nursing Progress Note Vital Molecular Biology Professor Assessment Note Patient Name: Paloma Cannon [address] Patient Vitals in the past 4 [...] People Were Notified: Attending Physician Caregiver/Provider: dr marily reyez See Documentation Related to: Continuous Monitoring Additional Comments : pt sats have been stable and continues with baseline This note was completed by: Tiffani Hernadez, RN ALLIED HEALTH Observed: 11/21/2017 Status: COMPLETED Source: [place] 9:41 AM [facility] REPOSITORY HNO ID: [id number] Author: Allie Baig (Rn), RN Service: Wound/Ostomy Author Type: Registered Nurse Type: Allied Health Filed: 11/21/2017 9:42 AM Note Text: ET/WOCN Nursing Consult Topic: ET/WOCN Consultation Note ET Outcome: Previously pouching L groin wound. Pt no longer has pouch over wound states that drainage has stopped. No other needs from [facility] at this time. Please place consult in [facility] if patients needs change Time Increment: 15 minutes Allie JOHNSONN RN WO Nursing WO Nursing - Please place consult via [facility]. Thank you. (M-F: [phone]; Weekends AND Holidays: [phone]). CONSULT PROG Observed: 11/21/2017 Status: COMPLETED Source: [place] 8:39 AM [facility] REPOSITORY HNO ID: [id number] Author: Justina Pollard (Pa) Service: Hematology Author Type: Physician Reprint Sorter Type: Consult Progress Note Filed: 11/21/2017 4:02 [...] IR guided intervention (initially on 10/23 at [facility] and 10/26 here at [facility]. ? # Antiphospholipid antibody syndrome -recent?home therapy [...] November 21, 2017 TIME: 8:39 AM PAGER: [phone] CBC Collected: 11/21/2017 Status: F Source: [place] 4:40 AM [facility] REPOSITORY TYPE CODE TESTS RESULT OUT [...] Performed By: #### CBC, BMP, MG1 #### [facility] [address] [place], [place] [address] BASIC METABOLIC PANL Collected: 11/21/2017 Status: F Source: [place] 4:40 AM [facility]AMP[facility] REPOSITORY TYPE CODE TESTS RESULT OUT OF REFERENCE UNITS RANGE LAB GLU 74-99 mg/dL Low Glucose 71 Result Comment: The [place] Diabetes Association (ADA) provides guidance for cutoff [...] Standards of Medical Care in Diabetes 2016, [place] [employer]. Diabetes Care. 2016.39(Suppl 1). LAB [...] actual GFR. Performed By: #### CBC, BMP, MG1 #### [facility] [address] [place], [place] [address] MAGNESIUM Collected: 11/21/2017 Status: F Source: [place] 4:40 AM [facility] REPOSITORY TYPE CODE TESTS RESULT OUT OF REFERENCE UNITS RANGE LAB MG 1.7-2.3 mg/dL Magnesium 1.8 Performed By: #### CBC, BMP, MG1 #### [facility] [address] [place], [place] [address] NURSING PROG Observed: 11/20/2017 Status: COMPLETED Source: [place] 11:42 PM [facility] REPOSITORY HNO ID: [id number] Author: Lisa Bourgeois (Rn), RN Service: Nursing Author Type: Registered Nurse Type: Nursing Progress Note Filed: 11/21/2017 6:31 AM Note Text: Nursing Progress Note Patient Name: Paloma Cannon Patient Location: [place] [address]/H[address]-16 Daily Note: RT placed pt on pulse [...] to 3 [place] [id number] notifying of O2 increase. Pt sleeping at this time. Satting 89-91% on 3 L currently. Pt educated on importance of turning and skin care, pt understands, refusing throughout night d/t pt being comfortable and wanting to sleep. This note was completed by: Lisa Bourgeois RN THERAPY NT Observed: 11/20/2017 Status: COMPLETED Source: [place] 4:01 PM [facility] REPOSITORY HNO ID: [id number] Author: Indra Woods (Donya) Service: Physical Therapy Author Type: Rx Specialist Type: Therapy (PT/OT/Speech/Resp) Filed: 11/20/2017 4:01 PM Note Text: Attestation signed by Brenda Meraz (Pt) at 11/21/2017 7:35 AM I reviewed and agree with the assessment as documented above. SIGNATURE: Brenda Meraz, PT DATE: November 21, 2017 TIME: 7:34 AM PHYSICAL THERAPY MISSED VISIT SERVICE DATE: 11/20/2017 SERVICE TIME: 1600 to 1600 ROOM: [place] [address] Attempted Treatment. Patient not seen due to Other: See Comment (Out of room). SIGNATURE: Indra Woods PTA PATIENT NAME: Paloma Cannon DATE: November 20, 2017 TIME: 4:01 PM PAGER/CONTACT #: [phone] PROGRESS Observed: 11/20/2017 Status: COMPLETED Source: [place] 3:02 PM [facility] REPOSITORY HNO ID: [id number] Author: Ros Wayne Service: General Internal Medicine Author Type: Physician Type: Progress Notes Filed: 11/20/2017 8:50 PM Note Text: RAF Terry PROGRESS NOTE For questions regarding this patient today please page [phone] After 5 pm on weekdays and 3pm on weekends and holidays please page correspondent pager [phone] SERVICE DATE: 11/20/2017 SERVICE TIME: 3:03 PM [...] IR emobolization of left L3 artery at [facility] on 10/23 IR embolization of left L2 [...] 11/03, 11/13 (heme following); patient is on [id number] (Mondays) schedule outpatient Plan: Holding Cytoxan 75 mg in setting of worsening thrombocytopenia Continue prednisone 60 mg with bactrim ppx Appreciate hematology and VM recs Plan is to start bivalrudin trial once platelets stabilize and bridge to coumadin - CAPRICE (acute kidney injury) (HCC) CAPRICE on CKD III, 2/2 contrast, now requiring dialysis First HD at [facility] on 10/25 with tunneled dialysis catheter placement [...] this morning, access site for embolization at [facility], no erythema or induration appreciated on exam, exquisitely TTP Groin study showed no signs of PSA, known AV fistula visualized with retrograde flow, vascular med aware- no further recs 10/28: pain less severe, no physical exam findings Repeat Leg DVT shows no pseudoaneurysm Likely due to nerve compression/RP hematoma causing compressive symtpoms S/p R groin drain placed at [facility] on 10/24 s/p L [facility] during embolization on 10/26 Plan: - Pain management-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 v. Acute rehabilitation proctor This note is not final until staffed by the attending physician and authenticated by responsible provider. SIGNATURE: Olga Reyez MD PATIENT NAME: Paloma Cannon DATE: November 20, 2017 TIME: 3:03 PM PAGER: [phone] RAF Terry ATTENDING NOTE: Chart reviewed, patient [...] above Ros Wayne MD FACP Attending, pager [phone] CASE MANAGEM Observed: 11/20/2017 Status: COMPLETED Source: [place] 12:41 PM [facility] REPOSITORY HNO ID: [id number] Author: Renetta Villanueva Service: Care Management Author Type: (none) Type: Care Mgt Progress Note Filed: 11/20/2017 12:42 PM Note Text: CARE MANAGEMENT PROGRESS NOTE SERVICE DATE: 11/20/2017 SERVICE TIME: 12:02 PM LOS: 26 days IM letter given to patient on 11/20/17. SIGNATURE: Kael Banksrical Assistant PATIENT NAME: Paloma Cannon DATE: November 20, 2017 TIME: 12:41 PM PAGER/CONTACT #: [phone] THERAPY NT Observed: 11/20/2017 Status: COMPLETED Source: [place] 12:29 PM [facility] REPOSITORY HNO ID: [id number] Author: Akanksha Murdock (Otr/L) Service: Occupational Therapy Author Type: Occupational Therapist Type: Therapy (PT/OT/Speech/Resp) Filed: 11/20/2017 12:32 PM Note Text: Occupational Therapy Treatment SERVICE DATE: 11/20/2017 SERVICE TIME: 1140 to 1150 ROOM: [place] [address] Recommended Discharge Disposition: Acute Rehab Justification For [...] daily living (ADL) Interventions Provided: Therapeutic Exercise (94756) Therapeutic Exercise (75658) Treatment Minutes: 10 1 unit Skilled Intervention(s): [...] November 20, 2017 TIME: 12:29 PM PAGER: [phone] CONSULT PROG Observed: 11/20/2017 Status: COMPLETED Source: [place] 10:04 AM [facility] REPOSITORY O ID: [id number] Author: Justina Pollard) Service: Hematology Author Type: Physician Reprint Sorter Type: Consult Progress Note Filed: 11/20/2017 2:29 [...] IR guided intervention (initially on 10/23 at [facility] and 10/26 here at [facility]. ? # Antiphospholipid antibody syndrome -recent?home therapy [...] November 20, 2017 TIME: 10:05 AM PAGER: [phone] THERAPY NT Observed: 11/20/2017 Status: COMPLETED Source: [place] 9:51 AM [facility] REPOSITORY O ID: [id number] Author: Indra Woods ([facility]) Service: Physical Therapy Author Type: Rx Specialist Type: Therapy (PT/OT/Speech/Resp) Filed: 11/20/2017 9:53 AM Note Text: Attestation signed by Brenda Meraz (Pt) at 11/20/2017 10:49 AM I reviewed and agree with the assessment as documented above. SIGNATURE: Brenda Meraz, PT DATE: November 20, 2017 TIME: 10:48 AM PHYSICAL THERAPY MISSED VISIT SERVICE DATE: 11/20/2017 SERVICE TIME: 0950 to 0950 ROOM: [place] [address] Attempted Treatment. Patient not seen due to declined (Pt declined due to having a lot of back pain, Pt just received pain meds. Will attempt in pm as able). SIGNATURE: Indra Woods PTA PATIENT NAME: Paloma Cannon DATE: November 20, 2017 TIME: 9:51 AM PAGER/CONTACT #: [phone] CBC Collected: 11/20/2017 Status: F Source: [place] 4:00 [facility] REPOSITORY TYPE CODE TESTS RESULT OUT [...] nRBC Performed By: #### CBC, BMP #### [facility] [address] [place] [address] BASIC METABOLIC PANL Collected: 11/20/2017 Status: F Source: [place] 4:00 AM [facility] REPOSITORY TYPE CODE TESTS RESULT OUT OF REFERENCE UNITS RANGE LAB GLU 74-99 mg/dL Glucose 78 Result Comment: The [place] Diabetes Association (ADA) provides guidance for cutoff [...] Standards of Medical Care in Diabetes 2016, [place] [employer]. Diabetes Care. 2016.39(Suppl 1). LAB [...] GFR. Performed By: #### CBC, BMP #### [facility] [address] [place], [place] [address] TYPE AND SCREEN Collected: 11/20/2017 Status: F Source: [place] 4:00 [facility] REPOSITORY TYPE CODE TESTS RESULT OUT OF REFERENCE UNITS RANGE LAB %ABR B ABO/RH(D) POSITIVE LAB % Antibody POS Screen Performed By: #### TSCR #### [facility] [address] [place], [place] [address] XR CHEST 1V FRONTAL Observed: 11/19/2017 Status: F Source: [facility] 11:07 PM [facility] [place] REPOSITORY * * *Final Report* * * [...] is mildly enlarged. Other: No bony abnormalities. Dopeman: MURTAZA Transcribe Date/Time: Nov 20 2017 6:25A Dictated by : MERCY PETERS MD This examination was interpreted and the report reviewed and electronically signed by: MAHOGANY ECHAVARRIA MD on Nov 20 2017 7:30AM EST [id number] NURSING PROG Observed: 11/19/2017 Status: COMPLETED Source: [place] 11:04 PM [facility] REPOSITORY HNO ID: [id number] Author: Lisa Bourgeois (Rn), RN Service: Nursing [...] monitoring. This note was completed by: Lisa Bourgeois RN NURSING PROG Observed: 11/19/2017 Status: COMPLETED Source: [place] 4:01 PM [facility] REPOSITORY HNO ID: [id number] Author: Grace Deal (Rn), RN Service: Nursing [...] RN PROGRESS Observed: 11/19/2017 Status: COMPLETED Source: [place] 3:18 PM [facility] REPOSITORY HNO ID: [id number] Author: Ros Wayne Service: General Internal Medicine Author Type: Physician Type: Progress Notes Filed: 11/19/2017 9:08 PM Note Text: RAF Terry PROGRESS NOTE For questions regarding this patient today please page [phone] After 5 pm on weekdays and 3pm on weekends and holidays please page correspondent pager [phone] SERVICE DATE: 11/19/2017 SERVICE TIME: 3:18 PM [...] IR emobolization of left L3 artery at [facility] on 10/23 IR embolization of left L2 [...] 11/03, 11/13 (heme following); patient is on [id number] (Mondays) schedule outpatient Plan: Holding Cytoxan 75 mg in setting of worsening thrombocytopenia Continue prednisone 60 mg with bactrim ppx Appreciate hematology and VM recs Plan is to start bivalrudin trial once platelets stabilize and bridge to coumadin - CAPRICE (acute kidney injury) (HCC) CAPRICE on CKD III, 2/2 contrast, now requiring dialysis First HD at [facility] on 10/25 with tunneled dialysis catheter placement [...] this morning, access site for embolization at [facility], no erythema or induration appreciated on exam, exquisitely TTP Groin study showed no signs of PSA, known AV fistula visualized with retrograde flow, vascular med aware- no further recs 10/28: pain less severe, no physical exam findings Repeat Leg DVT shows no pseudoaneurysm Likely due to nerve compression/RP hematoma causing compressive symtpoms S/p R groin drain placed at [facility] on 10/24 s/p L groin drain placed at [facility] during embolization on 10/26 Plan: - Pain management-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 Ros Wayne MD FACP Attending, pager [phone] NURSING PROG Observed: 11/19/2017 Status: COMPLETED Source: [place] 6:55 AM [facility] REPOSITORY HNO ID: [id number] Author: Lisa Bourgeois (Rn), RN Service: Nursing Author Type: Registered Nurse Type: Nursing Progress Note Filed: 11/19/2017 6:55 AM Note Text: Nursing Progress Note Patient Name: Paloma Cannon [address] Daily Note: [place] nights paged regarding K of 3.3 on this AM labs. This note was completed by: Lisa Bourgeois RN CBC Collected: 11/19/2017 Status: F Source: [place] 4:23 AM [facility] REPOSITORY TYPE CODE TESTS RESULT OUT [...] nRBC Performed By: #### CBC, BMP #### [facility] [address] [place] [id number] BASIC METABOLIC PANL Collected: 11/19/2017 Status: F Source: [place] 4:23 AM [facility] REPOSITORY TYPE CODE TESTS RESULT OUT OF REFERENCE UNITS RANGE LAB GLU 74-99 mg/dL High Glucose 107 Result Comment: The [place] Diabetes Association (ADA) provides guidance for cutoff [...] Standards of Medical Care in Diabetes 2016, [place] [employer]. Diabetes Care. 2016.39(Suppl 1). LAB [...] GFR. Performed By: #### CBC, BMP #### [facility] [address] [place], [place] [address] NURSING PROG Observed: 11/18/2017 Status: COMPLETED Source: [place] 3:44 PM [facility] REPOSITORY HNO ID: [id number] Author: Grace Deal (Rn), RN Service: Nursing [...] patient. This note was completed by: Grace Deal RN PROGRESS Observed: 11/18/2017 Status: COMPLETED Source: [place] 2:33 PM [facility] REPOSITORY HNO ID: [id number] Author: Ros Wayne Service: General Internal Medicine Author Type: Physician Type: Progress Notes Filed: 11/18/2017 9:53 PM Note Text: RAF Terry PROGRESS NOTE For questions regarding this patient today please page [phone] After 5 pm on weekdays and 3pm on weekends and holidays please page correspondent pager [phone] INTERVAL HISTORY: - Platelets downtrended today. 39. [...] IR emobolization of left L3 artery at [facility] on 10/23 IR embolization of left L2 [...] 11/03, 11/13 (heme following); patient is on [id number] (Mondays) schedule outpatient Plan: Holding Cytoxan 75 mg in setting of worsening thrombocytopenia Continue prednisone 60 mg with bactrim ppx Appreciate hematology and recs Plan is to start bivalrudin trial once platelets stabilize and bridge to coumadin - CAPRICE (acute kidney injury) (HCC) CAPRICE on CKD III, 2/2 contrast, now requiring dialysis First HD at [facility] on 10/25 with tunneled dialysis catheter placement [...] this morning, access site for embolization at [facility], no erythema or induration appreciated on exam, exquisitely TTP Groin study showed no signs of PSA, known AV fistula visualized with retrograde flow, vascular med aware- no further recs 10/28: pain less severe, no physical exam findings Repeat Leg DVT shows no pseudoaneurysm Likely due to nerve compression/RP hematoma causing compressive symtpoms S/p R groin drain placed at [facility] on 10/24 s/p L [facility] during [facility]ization on 10/26 Plan: - Pain management-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 Gustavo Vidal MD IM PGY-3, [id number] 11/18/2017 2:34 PM RAF Terry ATTENDING NOTE: [...] chair Ros Wayne MD FACP Attending, pager [phone] METHYLMALONIC ACID Collected: 11/18/2017 Status: F Source: [place] 8:59 AM [facility] REPOSITORY TYPE CODE TESTS RESULT OUT OF REFERENCE UNITS RANGE LAB MMA 79-376 nmol/L Methylmalonic Acid 336 Result Comment: This test was developed and its performance characteristics determined by [facility]'s [facility] [place] [facility] It has not been cleared or approved by the FDA. [facility] is regulated under CLIA as qualified to perform high-complexity testing. This test is used for clinical purposes. It should not be regarded as investigational or for research. Performed By: #### MMA #### [facility] [address] [place], [place] [address] CBC Collected: 11/18/2017 Status: F Source: [place] 4:11 AM [facility] REPOSITORY TYPE CODE TESTS RESULT OUT [...] nRBC Performed By: #### CBC, BMP #### [facility] [address] [place], [place] [address] BASIC METABOLIC PANL Collected: 11/18/2017 Status: F Source: [place] 4:11 AM [facility] REPOSITORY TYPE CODE TESTS RESULT OUT OF REFERENCE UNITS RANGE LAB GLU 74-99 mg/dL High Glucose 101 Result Comment: The [place] [employer] (ADA) provides guidance for cutoff [...] Standards of Medical Care in Diabetes 2016, [place] [employer]. Diabetes Care. 2016.39(Suppl 1). LAB [...] GFR. Performed By: #### CBC, BMP #### [facility] [address] [place], [place] [address] THERAPY NT Observed: 11/17/2017 Status: COMPLETED Source: [place] 11:29 [facility] REPOSITORY HNO ID: [id number] Author: Tamiko Son (Pt) Service: Physical Therapy Author Type: Physical Therapist Type: Therapy (PT/OT/Speech/Resp) Filed: 11/17/2017 11:36 AM Note Text: Physical Therapy Wound/Lymph Treatment SERVICE DATE: 11/17/2017 SERVICE TIME: 1038 to 1110 ROOM: [place] [address] Recommended Discharge Disposition Comments: will require further [...] Patient TREATMENT INTERVENTIONS: Interventions Provided: Manual Therapy (35202) Manual Therapy (69306) Treatment Minutes: 32 2 units Skilled Intervention: [...] 17, 2017 TIME: 11:29 AM PAGER/CONTACT #: [phone] THERAPY NT Observed: 11/17/2017 Status: COMPLETED Source: [place] 10:45 AM [facility] REPOSITORY [facility] ID: [id number] Author: Indra Woods (Doughnut Machine Operator Helper) Service: Physical Therapy Author Type: Rx Specialist Type: Therapy (PT/OT/Speech/Resp) Filed: 11/17/2017 12:21 PM Note Text: Attestation signed by Jocelyn Coleman (Pt) at 11/17/2017 2:01 PM I reviewed and agree with the documentation corresponding to this therapy visit. SIGNATURE: Jocelyn Coleman PT DATE: November 17, 2017 TIME: 2:00 PM Physical Therapy Treatment SERVICE DATE: 11/17/2017 SERVICE TIME: 0925 to 1035 ROOM: [place] [address] Recommended Discharge Disposition: Acute Rehab Justification For [...] Diagnosis: Reduced mobility-other Interventions Provided: Gait Training (04246);Therapeutic Activity (91291);Therapeutic Exercise (60544) Therapeutic Exercise (85518) Treatment Minutes: 15 1 unit Skilled Intervention(s): [...] LAQ with 5 second hold. Therapeutic Activity (11252) Treatment Minutes: 30 2 units Skilled Intervention(s): [...] pacing activity. [place] [facility] [place]er with cues for walker management, balance, foot placement, trunk alignment and body positioning. Static standing for hygiene with CGA/ minimal assist with cues for knee extension, forward gaze, trunk alignment and balance. Patient required extra time for all activities due to fatigue and pain. Gait Training (57637) Treatment Minutes: 23 2 units Skilled Intervention(s): [...] CODE: PT 6 Clicks Score: 12 (11/17/17 6669) Mobility: Walking and Moving Around Current Status [...] 17, 2017 TIME: 10:45 AM PAGER/CONTACT #: [phone] CONSULT Observed: 11/17/2017 Status: COMPLETED Source: [place] 10:01 AM [facility] [place] REPOSITORY HNO ID: [id number] Author: Lila Weldon Service: Vascular Medicine Author [...] 17, 2017 TIME: 10:02 AM PAGER/CONTACT #: [phone] . [facility] STAFF PHYSICIAN NOTE OF PERSONAL INVOLVEMENT IN CARE I have reviewed the note obtained and documented by the fellow and I personally participated in the fernandes components. I have discussed the case and management of the patient's care. The following comments revise or confirm relevant fernandes components of the note. Lila Weldon MD CONSULT PROG Observed: 11/17/2017 Status: COMPLETED Source: [place] 9:10 AM [facility] REPOSITORY O ID: [id number] Author: Justina Pollard (Cy) Service: Hematology Author Type: Physician Reprint Sorter Type: Consult Progress Note Filed: 11/17/2017 6:58 [...] IR guided intervention (initially on 10/23 at [facility] and 10/26 here at [facility]. ? # Antiphospholipid antibody syndrome -recent?home therapy [...] November 17, 2017 TIME: 9:10 AM PAGER: [phone] PROGRESS Observed: 11/17/2017 Status: COMPLETED Source: [place] 5:58 AM [facility] REPOSITORY O ID: [id number] Author: Ros Wayne Service: General Internal Medicine Author Type: Physician Type: Progress Notes Filed: 11/17/2017 4:03 PM Note Text: RAF Terry PROGRESS NOTE For questions regarding this patient today please page [phone] After 5 pm on weekdays and 3pm on weekends and holidays please page correspondent pager [phone] SERVICE DATE: 11/17/2017 SERVICE TIME: 5:58 AM [...] IR emobolization of left L3 artery at [facility] on 10/23 IR embolization of left L2 [...] 11/03, 11/13 (heme following); patient is on [id number] (Mondays) schedule outpatient Plan: Holding Cytoxan 75 mg in setting of worsening thrombocytopenia Continue prednisone 60 mg with bactrim ppx Appreciate hematology and VM recs Plan is to start bivalrudin trial once platelets stabilize and bridge to coumadin - CAPRICE (acute kidney injury) (HCC) CAPRICE on CKD III, 2/2 contrast, now requiring dialysis First HD at [facility] on 10/25 with tunneled dialysis catheter placement [...] this morning, access site for embolization at [facility], no erythema or induration appreciated on exam, exquisitely TTP Groin study showed no signs of PSA, known AV fistula visualized with retrograde flow, vascular med aware- no further recs 10/28: pain less severe, no physical exam findings Repeat Leg DVT shows no pseudoaneurysm Likely due to nerve compression/RP hematoma causing compressive symtpoms S/p R groin drain placed at [facility] on 10/24 s/p L [facility] during embolization on 10/26 Plan: - Pain management-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 v. Acute rehabilitation center This note is not final until staffed by the attending physician and authenticated by responsible provider. SIGNATURE: Olga Reyez MD PATIENT NAME: Paloma Cannon DATE: November 17, 2017 TIME: 5:58 AM PAGER: [phone] RAF Terry ATTENDING NOTE: Chart reviewed, patient [...] space areas.. improving slowly?w/ resumption of Demadex mg qAM on 11/13? CAPRICE on CKD on [...] chair Ros Wayne MD FACP Attending, pager [phone] MAGNESIUM Collected: 11/17/2017 Status: F Source: [place] 4:07 AM [facility] REPOSITORY TYPE CODE TESTS RESULT OUT OF REFERENCE UNITS RANGE LAB MG 1.7-2.3 mg/dL Magnesium 1.9 Performed By: #### MG1, PHOS, BMP, CBC, B12 #### [facility] [address] [place] [address] PHOSPHORUS Collected: 11/17/2017 Status: F Source: [place] 4:07 AM [facility] REPOSITORY TYPE CODE TESTS RESULT OUT OF REFERENCE UNITS RANGE LAB PHOS 2.7-4.8 mg/dL Phosphorus 4.3 Performed By: #### MG1, PHOS, BMP, CBC, B12 #### [facility] [address] [place] [address] BASIC METABOLIC PANL Collected: 11/17/2017 Status: F Source: [place] 4:07 [facility] REPOSITORY TYPE CODE TESTS RESULT OUT OF REFERENCE UNITS RANGE LAB GLU 74-99 mg/dL High Glucose 120 Result Comment: The [place] Diabetes Association (ADA) provides guidance for cutoff [...] Standards of Medical Care in Diabetes 2016, [place] [employer]. Diabetes Care. 2016.39(Suppl 1). LAB [...] #### MG1, PHOS, BMP, CBC, B12 #### [facility] [address] [place], [place] [address] CBC Collected: 11/17/2017 Status: F Source: [place] 4:07 AM [facility] REPOSITORY TYPE CODE TESTS RESULT [...] #### MG1, PHOS, BMP, CBC, B12 #### [facility] [address] [facility] [place], [place] [address] VITAMIN B12 Collected: 11/17/2017 Status: F Source: [place] 4:07 AM [facility] REPOSITORY TYPE CODE TESTS RESULT OUT OF REFERENCE UNITS RANGE LAB B12 232-1245 pg/mL Vitamin B12 272 Performed By: #### MG1, PHOS, BMP, CBC, B12 #### [facility] [address] [place], [place] [address] PROGRESS Observed: 11/16/2017 Status: COMPLETED Source: [place] 4:21 PM [facility] REPOSITORY HNO ID: [id number] Author: Ros Wayne Service: General Internal Medicine Author Type: Physician Type: Progress Notes Filed: 11/16/2017 9:58 PM Note Text: RAF Terry PROGRESS NOTE For questions regarding this patient today please page [phone] After 5 pm on weekdays and 3pm on weekends and holidays please page correspondent pager [phone] SERVICE DATE: 11/16/2017 SERVICE TIME: 4:21 PM [...] IR emobolization of left L3 artery at [facility] on 10/23 IR embolization of left L2 [...] 11/03, 11/13 (heme following); patient is on [id number] (Mondays) schedule outpatient Plan: Holding Cytoxan 75 mg in setting of worsening thrombocytopenia Continue prednisone 60 mg with bactrim ppx Appreciate hematology and VM recs Plan is to start bivalrudin trial once platelets stabilize and bridge to coumadin - CAPRICE (acute kidney injury) (HCC) CAPRICE on CKD III, 2/2 contrast, now requiring dialysis First HD at [facility] on 10/25 with tunneled dialysis catheter placement [...] this morning, access site for embolization at [facility], no erythema or induration appreciated on exam, exquisitely TTP Groin study showed no signs of PSA, known AV fistula visualized with retrograde flow, vascular med aware- no further recs 10/28: pain less severe, no physical exam findings Repeat Leg DVT shows no pseudoaneurysm Likely due to nerve compression/RP hematoma causing compressive symtpoms S/p R groin drain placed at [facility] on 10/24 s/p L [facility] during embolization on 10/26 Plan: - Pain management-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 [facility] - Will continue to wean dilaudid [...] November 16, 2017 TIME: 4:21 PM PAGER: [phone] RAF Terry ATTENDING NOTE: Appreciate HEME team [...] qAM Ros Wayne MD FACP Attending, pager [phone] [facility] Observed: 11/16/2017 Status: COMPLETED Source: [place] 2:45 PM [facility] [place] REPOSITORY HNO ID: [id number] Author: Kayla Levin (Therapist), [place] Service: Music Therapy Author Type: Music Therapist [...] to music Music Used: You Are My [place] Style of Music: Traditional Family Present: No [...] Will continue to follow. SIGNATURE: Kayla Levin [facility] PATIENT NAME: Paloma Cannon DATE: November 17, 2017 TIME: 8:59 AM PAGER/CONTACT #: [phone] [facility] Observed: 11/16/2017 Status: COMPLETED Source: [place] 2:38 PM [facility] [place] REPOSITORY HNO ID: [id number] Author: Allie Baig (Rn), RN Service: Wound/Ostomy [...] weekly change Time Increment: 15 minutes Allie JOHNSONN RN WOC Nursing WO Nursing - Please place consult via [employer]. Thank you. (M-F: [phone]; Weekends AND Holidays: [phone]). THERAPY NT Observed: 11/16/2017 Status: COMPLETED Source: [place] 2:06 PM [facility] REPOSITORY [facility] ID: [id number] Author: Tamiko Son (Pt) Service: Physical Therapy Author Type: Physical Therapist Type: Therapy (PT/OT/Speech/Resp) Filed: 11/16/2017 2:12 PM Note Text: Physical Therapy Wound/Lymph Treatment SERVICE DATE: 11/16/2017 SERVICE TIME: 922 to 1003 ROOM: [place] [address] Recommended Discharge Disposition Comments: will require further [...] Patient TREATMENT INTERVENTIONS: Interventions Provided: Manual Therapy (43227) Manual Therapy (61679) Treatment Minutes: 41 3 units Skilled Intervention: [...] 16, 2017 TIME: 2:06 PM PAGER/CONTACT #: [phone] THERAPY NT Observed: 11/16/2017 Status: COMPLETED Source: [place] 1:37 PM [facility] REPOSITORY O ID: [id number] Author: Zarha Burks (Go-L) Service: Occupational Therapy Author Type: [facility] Type: Therapy (PT/OT/Speech/Resp) Filed: 11/16/2017 1:44 PM Note Text: Attestation signed by Yue Uriostegui at 11/16/2017 3:13 PM I reviewed and agree with the documentation corresponding to this therapy visit. SIGNATURE: Yue Uriostegui OTR/L DATE: November 16, 2017 TIME: 3:13 PM Occupational Therapy Treatment SERVICE DATE: 11/16/2017 SERVICE TIME: 1141 to 1234 ROOM: [place] [address] Recommended Discharge Disposition: Acute Rehab Justification For [...] daily living (ADL) Interventions Provided: Therapeutic Exercise (88422);Therapeutic Activity (96612);Self Intermediate Management (56956) Therapeutic Exercise (90867) Treatment Minutes: 28 2 units Skilled Intervention(s): [...] , D1 flexion/extension, D2 flexion/extension. Therapeutic Activity (35819) Treatment Minutes: 10 1 unit Skilled Intervention(s): Educated on walker safety and proper hand placement during sit<>stand transfers. Pt required mod A for elevated surface and max A for standard surface. Educated on AR vs SNF and therapist d/c recommendations. Self Intermediate Management (75460) Treatment Minutes: 15 1 unit Skilled Intervention(s): [...] Self Care Goal Status (G8988): CJ (11/16/17 114) Based on clinical assessment and the score [...] November 16, 2017 TIME: 1:37 PM PAGER: [phone] CBC Collected: 11/16/2017 Status: F Source: [place] 5:24 AM [facility] REPOSITORY TYPE CODE TESTS RESULT OUT [...] By: #### CBC, MG1, PHOS, BMP #### [facility] [address] [place] [address] MAGNESIUM Collected: 11/16/2017 Status: F Source: [place] 5:24 AM [facility] REPOSITORY TYPE CODE TESTS RESULT OUT OF REFERENCE UNITS RANGE LAB MG 1.7-2.3 mg/dL Magnesium 2.0 Performed By: #### CBC, MG1, PHOS, BMP #### [facility] [address] [place], [place] [address] PHOSPHORUS Collected: 11/16/2017 Status: F Source: [place] 5:24 AM [facility] REPOSITORY TYPE CODE TESTS RESULT OUT OF REFERENCE UNITS RANGE LAB PHOS 2.7-4.8 mg/dL Phosphorus 4.4 Performed By: #### CBC, MG1, PHOS, BMP #### [facility] [address] [place], [place] [address] BASIC METABOLIC PANL Collected: 11/16/2017 Status: F Source: [place] 5:24 AM [facility] REPOSITORY TYPE CODE TESTS RESULT OUT OF REFERENCE UNITS RANGE LAB GLU 74-99 mg/dL Low Glucose 73 Result Comment: The [place] Diabetes Association (ADA) provides guidance for cutoff [...] Standards of Medical Care in Diabetes 2016, [place] [employer]. Diabetes Care. 2016.39(Suppl 1). LAB [...] By: #### CBC, MG1, PHOS, BMP #### [facility] [address] [place], [place] [address] TYPE AND SCREEN Collected: 11/16/2017 Status: F Source: [place] 5:24 AM [facility] REPOSITORY TYPE CODE TESTS RESULT OUT OF REFERENCE UNITS RANGE LAB %ABR B ABO/RH(D) POSITIVE LAB % Antibody POS Screen Performed By: #### TSCR #### [facility] [address] [place], [place] [address] CONSULT PROG Observed: 11/15/2017 Status: COMPLETED Source: [place] 4:47 PM [facility] REPOSITORY HNO ID: [id number] Author: Luz Maria Wolfe) Service: Hematology/Oncology Author [...] IR guided intervention (initially on 10/23 at [facility] and 10/26 here at [facility]. ? # Antiphospholipid antibody syndrome -recent?home therapy [...] adequate for anticoagulation, we can discuss with [facility] medicine team starting bivalirudin with bridge to coumadin Luz Maria Wolfe MD November 15, 2017 5:11 PM CASE MANAGEM Observed: 11/15/2017 Status: COMPLETED Source: [place] 3:20 PM [facility] REPOSITORY HNO ID: [id number] Author: Jacinta Olmedo (Rn), RN Service: Care Management Author Type: Registered Nurse Type: Care Mgt Progress Note Filed: 11/15/2017 3:22 PM Note Text: CARE MANAGEMENT PROGRESS NOTE SERVICE DATE: 11/15/2017 SERVICE TIME: 3:20 PM LOS: 21 days Needs Prior to Discharge: Accepting Facility;Bed Availability;Insurance Authorization;Discharge Transportation Per primary team, earliest dc next week Awaiting PMANDR.Per Gissell, [facility] Liason (p) [phone] unable to accept. Referal sent to Peyman ISBELL (via Acute rehab [employer] as central number (p) [phone] and (f) [phone]) for review at direction of [place] liason [...] 2LO2/nc, has home O2 2L 02 via [facility]. Yang MAZA is Elsa Matos (p) [phone]- updated on dc plan [email or web address]. CM to continue to follow SIGNATURE: Jacinta Olmedo RN PATIENT NAME: Paloma Cannon DATE: November 15, 2017 TIME: 3:20 PM PAGER/CONTACT #: [phone] NURSING PROG Observed: 11/15/2017 Status: COMPLETED Source: [place] 2:18 PM [facility] REPOSITORY HNO ID: [id number] Author: Zoila Cullen (Rn), RN Service: Nursing Author Type: Registered Nurse Type: Nursing Progress Note Filed: 11/15/2017 2:19 PM Note Text: Nursing Progress Note Patient Name: Paloma Cannon Patient Location: [place] [id number]- Daily Note: Pt AANDOx3. VSS. Pt c/o back pain, treated per mar. Pt up with two assist and walker. Pt down to cafeteria with and in wheelchair. Skin care protocol in place. Fall/safety precautions in place. This note was completed by: Zoila Cullen RN PROGRESS Observed: 11/15/2017 Status: COMPLETED Source: [place] 2:04 PM [facility] REPOSITORY HNO ID: [id number] Author: Ros Wayne Service: General Internal Medicine Author Type: Physician Type: Progress Notes Filed: 11/15/2017 10:10 PM Note Text: RAF Terry PROGRESS NOTE For questions regarding this patient today please page [phone] After 5 pm on weekdays and 3pm on weekends and holidays please page correspondent pager [phone] SERVICE DATE: 11/15/2017 SERVICE TIME: 2:04 PM INTERVAL HISTORY: - No events overnight - BP 383-310-71-97, HR 70-100, on 2L NC - Uoutput [...] IR emobolization of left L3 artery at [facility] on 10/23 IR embolization of left L2 [...] 11/03, 11/13 (heme following); patient is on [id number] (Mondays) schedule outpatient Plan: Holding Cytoxan 75 mg in setting of worsening thrombocytopenia Continue prednisone 60 mg with bactrim ppx Appreciate hematology and VM recs Plan is to start bivalrudin trial once platelets stabilize and bridge to coumadin - CAPRICE (acute kidney injury) (HCC) CAPRICE on CKD III, 2/2 contrast, now requiring dialysis First HD at [facility] on 10/25 with tunneled dialysis catheter placement [...] Amlodipine 10 mg to nifedipine 30mg on 5/4, and increased Coreg from 6.25 to 25 [...] this morning, access site for embolization at [facility], no erythema or induration appreciated on exam, exquisitely TTP Groin study showed no signs of PSA, known AV fistula visualized with retrograde flow, vascular med aware- no further recs 10/28: pain less severe, no physical exam findings Repeat Leg DVT shows no pseudoaneurysm Likely due to nerve compression/RP hematoma causing compressive symtpoms S/p R groin drain placed at [facility] on 10/24 s/p L [facility] during embolization on 10/26 Plan: - Pain management-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 [facility] - Will continue to wean dilaudid [...] November 15, 2017 TIME: 2:04 PM PAGER: [phone] RAF Terry ATTENDING NOTE: Chart reviewed, patient [...] activity Ros Wayne MD FACP Attending, pager [phone] CONSULT Observed: 11/15/2017 Status: COMPLETED Source: [place] 1:07 PM [facility] REPOSITORY HNO ID: [id number] Author: Viraj Starr Service: Physical Medicine AND Rehabilitation Author Type: Physician Type: Consults Filed: 11/15/2017 4:35 PM Note Text: HOSPITAL INITIAL CONSULT: PMANDR SERVICE DATE: 11/15/2017 SERVICE TIME: 415pm REASON FOR CONSULTATION: assessment of rehab service needs Subjective PATIENT'S HOME ADDRESS: [address] [place] [address] HISTORY: Paloma Cannon is a 27 year old female whose current [facility] admission dates to 10/25/2017. History notes that she was admitted on that date from outside hospital. Ms. Cannon is being seen at the request of Dr. Wayne, the [facility] hospital physician of record. She carries the rehabilitation diagnosis of debility. 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 She was transferred to [facility] for further stabilization. She underwent urgent Left [...] the last 168 hours. BMP: Recent Labs 11/15/1760011/14/1742511/13/17 0811/12/1751711/11/1733411/10/1733511/09/17 0549 GLUC 74 79 73* 128* 123* [...] 0.96 1.10* 0.96 1.29* CHEM: Recent Labs 11/15/1760011/14/1742511/13/17 0811/12/1751711/11/17 03311/10/17 03311/09/17 0549 CA 8.9 8.7 8.9 8.6 8.3* 8.8 8.9 MG 2.1 1.8 2.1 1.8 1.8 1.9 2.0 P 3.9 4.0 3.5 3.3 3.4 3.3 3.8 HEPATIC: No results for input(s): ALKPHOS, ALT, AST, TBILI, LIPASE in the last 168 hours. Impression/Recommendations DIAGNOSIS:debility RECOMMENDATIONS: Patient most likely will be appropriate for half-way facility in future (moderate exercise program 1-2 [...] #: NUTRITION Observed: 11/15/2017 Status: COMPLETED Source: [place] 12:28 PM [facility] REPOSITORY O ID: [id number] Author: nAahi Mai (Diet-T) Service: Nutrition Therapy Author Type: Equity Research Analyst Type: Nutrition Filed: 11/15/2017 12:29 PM Note [...] Ellison PATIENT NAME: Paloma Cannon DATE: November 15, 2017 TIME: 12:28 PM PAGER: [phone] PLAN OF CARE Observed: 11/15/2017 Status: COMPLETED Source: [place] 11:48 AM [facility] REPOSITORY HNO ID: [id number] Author: Hodan SanchezConnectbeam)Julia Service: (none) Author Type: (none) Type: Plan of Care Filed: 11/15/2017 11:48 AM Note Text: Pharmacy Discharge Medication Service: This patient has elected to receive their discharge prescriptions through the [facility] Bedside Prescription Delivery program. The prescriptions are currently being processed. A follow-up note will be entered once the prescriptions have been filled and delivered to the patient. Please contact me with any questions or updates to the patient's discharge medications. Julia Pettit (Connectbeam) DCT Contact Info: [phone] PLAN OF CARE Observed: 11/15/2017 Status: COMPLETED Source: [place] 11:47 AM [facility] REPOSITORY HNO ID: [id number] Author: Hodan SanchezConnectbeamJulia Whitney Service: (none) Author Type: (none) Type: Plan of Care Filed: 11/15/2017 11:48 AM Note Text: OCCUPATIONAL THERAPY DEPARTMENT CHAIR BEDSIDE DELIVERY SURVEY 1. Patient to use [facility] Bedside Delivery - YES 2. If fax, patient would like us to fax prescriptions to Pharmacy of choice a. Pharmacy: b. Location: c. Phone: 3. Insurance card on file - YES 4. Credit card for payment - N/A No prescriptions yet. Please page [phone] upon discharge. CBC Collected: 11/15/2017 Status: F Source: [place] 6:01 AM [facility] REPOSITORY TYPE CODE TESTS RESULT OUT [...] By: #### CBC, MG1, PHOS, BMP #### [facility] [address] [place], [place] [id number] MAGNESIUM Collected: 11/15/2017 Status: F Source: [place] [address]:[address] [place] [address] REPOSITORY TYPE CODE TESTS RESULT OUT OF REFERENCE UNITS RANGE LAB MG 1.7-2.3 mg/dL Magnesium 2.1 Performed By: #### CBC, MG1, PHOS, BMP #### [place] [address] PHOSPHORUS Collected: 11/15/2017 Status: F Source: [place] 6:01 [facility] REPOSITORY TYPE CODE TESTS RESULT OUT OF REFERENCE UNITS RANGE LAB PHOS 2.7-4.8 mg/dL Phosphorus 3.9 Performed By: #### CBC, MG1, PHOS, BMP #### [place] [address] [place] [id number] BASIC METABOLIC PANL Collected: 11/15/2017 Status: F Source: [place] [address]:[address] [place] [address] REPOSITORY TYPE CODE TESTS RESULT OUT OF REFERENCE UNITS RANGE LAB GLU 74-99 mg/dL Glucose 74 Result Comment: The [place] [employer] (ADA) provides guidance for cutoff [...] Standards of Medical Care in Diabetes 2016, [place] [employer]. Diabetes Care. 2016.39(Suppl 1). LAB [...] By: #### CBC, MG1, PHOS, BMP #### [facility] [address] [place], [place] [address] NURSING PROG Observed: 11/14/2017 Status: COMPLETED Source: [place] 6:05 PM [facility] [place] REPOSITORY O ID: [id number] Author: Eduardo Yates (Rn), RN Service: Nursing Author Type: Registered Nurse Type: Nursing Progress Note Filed: 11/14/2017 6:09 PM Note Text: Nursing Progress Note Patient Name: Paloma Cannon Patient Location: H080 015/H080-16 Daily Note: OOB via 2 assist using [...] RN CONSULT Observed: 11/14/2017 Status: COMPLETED Source: [place] 4:46 PM [facility] REPOSITORY HNO ID: [id number] Author: Michelle Garcia ([facility]) Service: Physical Medicine AND Rehabilitation Author Type: Nurse Practitioner Type: Consults Filed: 11/14/2017 4:46 PM Note Text: PMANDR consult received today. Chart reviewed. [facility] tomorrow. Thank you for the consult. Please call with any questions. Michelle Garcia APRN.[facility] Physical Medicine and Rehabilitation pager [phone] CONSULT PROG Observed: 11/14/2017 Status: COMPLETED Source: [place] 4:33 PM [facility] REPOSITORY HNO ID: [id number] Author: Justina Pollard (Cy) Service: Hematology Author Type: Physician Reprint Sorter Type: Consult Progress Note Filed: 11/14/2017 4:37 [...] IR guided intervention (initially on 10/23 at [facility] and 10/26 here at [facility]. ? # Antiphospholipid antibody syndrome -recent?home therapy [...] November 14, 2017 TIME: 4:33 PM PAGER: [phone] THERAPY NT Observed: 11/14/2017 Status: COMPLETED Source: [place] 4:06 PM [facility] REPOSITORY O ID: [id number] Author: Indra Woods (Doughnut Machine [employer] Helper) Service: Physical Therapy Author Type: Rx Specialist Type: Therapy (PT/OT/Speech/Resp) Filed: 11/14/2017 4:19 PM Note Text: Attestation signed by Brenda Meraz (Pt) at 11/15/2017 7:31 AM I reviewed and agree with the assessment as documented above. SIGNATURE: Brenda Meraz PT DATE: November 15, 2017 TIME: 7:31 AM Physical Therapy Treatment SERVICE DATE: 11/14/2017 SERVICE TIME: 1510 to 1550 ROOM: [place] [address] Recommended Discharge Disposition: Acute Rehab Justification For [...] Diagnosis: Reduced mobility-other Interventions Provided: Therapeutic Activity (07587);Therapeutic Exercise (80425) Therapeutic Exercise (20213) Treatment Minutes: 15 1 unit Skilled Intervention(s): Patient instructed in and performed seated exercises for 20 reps: ankle pumps, LAQ, marching, hip abduction, heelslides with assist for minimal tactile and verbal cues for pacing and proper technique. Patient required rest breaks between sets due to fatigue. Educated patient in reasoning for each exercise. Patient stated performing supine exercise in bed everyday. Therapeutic Activity (72576) Treatment Minutes: 23 2 units Skilled Intervention(s): Instructed patient in log roll technique Instructed patient in sit to supine using safe, effective technique Education with importance of OOB activities and pacing activity. Patient sat EOB for 15 mins for core strengthening and dynamic activity including reaching outside base of support. Patient unable to stand from after 2 attempts ( with max assist [...] complete details for this therapy evaluation/treatment. SIGNATURE: Indar Woods PTA PATIENT NAME: Paloma Cannon DATE: November 14, 2017 TIME: 4:06 PM PAGER/CONTACT #: [phone] THERAPY NT Observed: 11/14/2017 Status: COMPLETED Source: [place] 3:33 PM [facility] [place] REPOSITORY O ID: [id number] Author: Zahra Burks ([place]) Service: Occupational Therapy Author Type: [facility] Type: Therapy (PT/OT/Speech/Resp) Filed: 11/14/2017 3:39 PM Note Text: Attestation signed by Yue Uriostegui at 11/14/2017 3:57 PM I reviewed and agree with the documentation corresponding to this therapy visit. SIGNATURE: BARRIE Maldonado DATE: November 14, 2017 TIME: 3:57 PM Occupational Therapy Treatment SERVICE DATE: 11/14/2017 SERVICE TIME: 1359 to 1446 ROOM: H080- Recommended Discharge Disposition: Acute Rehab [...] daily living (ADL) Interventions Provided: Therapeutic Exercise (40624);Therapeutic Activity (67745);Self Intermediate Management (70634) Therapeutic Exercise (54746) Treatment Minutes: 17 1 unit Skilled Intervention(s): [...] abd/adduction, chest press, elbow flexion/extension Therapeutic Activity (30077) Treatment Minutes: 15 1 unit Skilled Intervention(s): Instructed patient in supine to sit pushing with upper extremities to sit up Instructed patient in sit to supine using safe, effective technique Educated on acute rehab OT treatments. Self Intermediate Management (67611) Treatment Minutes: 15 1 unit Skilled Intervention(s): Instructed pt on safe [place] [facility] using proper hand placement for safety. Provided [...] G CODE: OT 6 Clicks Score: 17 (11/14/17 1359) Self Care Current Status (G8987): CK (11/14/17 1359) Self Care Goal Status (G8988): CJ (11/14/17 1359) Based on clinical assessment and the score [...] November 14, 2017 TIME: 3:34 PM PAGER: [phone] CBC Collected: 11/14/2017 Status: F Source: [place] 1:15 PM [facility] REPOSITORY TYPE CODE TESTS RESULT OUT [...] Absolute nRBC Performed By: #### CBC #### [facility] [address] [place], [place] [address] CASE MANAGEM Observed: 11/14/2017 Status: COMPLETED Source: [place] 11:33 AM [facility] REPOSITORY HNO ID: [id number] Author: Jacinta Olmedo (Rn), RN Service: Care Management Author Type: Registered Nurse Type: Care Mgt Progress Note Filed: 11/14/2017 11:38 AM Note Text: CARE MANAGEMENT PROGRESS NOTE SERVICE DATE: 11/14/2017 SERVICE TIME: 11:34 AM LOS: 20 days Needs Prior to Discharge: Accepting Facility;Bed Availability;Insurance Authorization;Discharge Transportation Earliest dc next week Awaiting PMANDR. Per Gissell, Main AKILAH Gutiérrez (p) [phone] unable to accept. Referal sent to [...] has home O2 2L 02 via [employer]. [facility] is Elsa Matos (p) [phone]- updated on dc plan today. CM to continue to follow SIGNATURE: Jacinta Olmedo, RN PATIENT NAME: Paloma Cannon DATE: November 14, 2017 TIME: 11:34 AM PAGER/CONTACT #: [phone] THERAPY NT Observed: 11/14/2017 Status: COMPLETED Source: [place] 11:17 AM [facility] REPOSITORY HNO ID: [id number] Author: Indra Woods (Doughnut Machine Operator Helper) Service: Physical Therapy Author Type: Rx Specialist Type: Therapy (PT/OT/Speech/Resp) Filed: 11/14/2017 11:23 AM Note Text: Attestation signed by Brenda Meraz (Pt) at 11/14/2017 12:49 PM I reviewed and agree with the assessment as documented above. SIGNATURE: Brenda Meraz PT DATE: November 14, 2017 TIME: 12:48 PM PHYSICAL THERAPY MISSED VISIT SERVICE DATE: 11/14/2017 SERVICE TIME: 1116 to 1116 ROOM: [place] [address] Attempted Treatment. Patient not seen due to getting blood platelets in 10 mins. Will attempts again as able. SIGNATURE: Indra Woods PTA PATIENT NAME: Paloma Cannon DATE: November 14, 2017 TIME: 11:17 AM PAGER/CONTACT #: [phone] CONSULT Observed: 11/14/2017 Status: COMPLETED Source: [place] 11:05 AM [facility] REPOSITORY HNO ID: [id number] Author: Alicia Carmen ([facility]) Service: Nursing Author Type: Nurse Specialist Type: Consults Filed: 11/14/2017 2:16 PM Note Text: Paloma Cannon [phone] Reason for Consult: Routine CLABSI Prevention Rounding [...] with: JEFF Clark, LIZET Alcantar, Darrell Ewing, Blanching Machine Operator, AND Clark Nichols PA Alicia Carmen, MSN, VP-[facility] [phone] 10 Minutes Thank you for including me in the care of this patient and please feel free to re-consult me if necessary. PROGRESS Observed: 11/14/2017 Status: COMPLETED Source: [place] 6:00 AM [facility] REPOSITORY HNO ID: [id number] Author: Ros Wayne Service: General Internal Medicine Author Type: Physician Type: Progress Notes Filed: 11/14/2017 5:31 PM Note Text: RAF Terry PROGRESS NOTE For questions regarding this patient today please page [phone] After 5 pm on weekdays and 3pm on weekends and holidays please page correspondent pager [phone] SERVICE DATE: 11/14/2017 SERVICE TIME: 6:00 AM [...] IR emobolization of left L3 artery at [facility] on 10/23 IR embolization of left L2 [...] contrast, now requiring dialysis First HD at [facility] on 10/25 with tunneled dialysis catheter placement [...] this morning, access site for embolization at [facility], no erythema or induration appreciated on exam, exquisitely TTP Groin study showed no signs of PSA, known AV fistula visualized with retrograde flow, vascular med aware- no further recs 10/28: pain less severe, no physical exam findings Repeat Leg DVT shows no pseudoaneurysm Likely due to nerve compression/RP hematoma causing compressive symtpoms S/p R groin drain placed at [facility] on 10/24 s/p L [facility]in drain [facility] during embolization on 10/26 Plan: - Pain management-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 [address] [place], [place] [address] CBC Collected: 11/14/2017 Status: F Source: [place] 4:26 AM [facility] REPOSITORY TYPE CODE TESTS RESULT OUT [...] By: #### CBC, MG1, PHOS, BMP #### [facility] [address] [place] [address] MAGNESIUM Collected: 11/14/2017 Status: F Source: [place] 4:26 [facility] REPOSITORY TYPE CODE TESTS RESULT OUT OF REFERENCE UNITS RANGE LAB MG 1.7-2.3 mg/dL Magnesium 1.8 Performed By: #### CBC, MG1, PHOS, BMP #### [facility] [address] [place] [address] PHOSPHORUS Collected: 11/14/2017 Status: F Source: [place] 4:26 AM [facility] REPOSITORY TYPE CODE TESTS RESULT OUT OF REFERENCE UNITS RANGE LAB PHOS 2.7-4.8 mg/dL Phosphorus 4.0 Performed By: #### CBC, MG1, PHOS, BMP #### [facility] [place] [address] BASIC METABOLIC PANL Collected: 11/14/2017 Status: F Source: [place] 4:26 [facility] REPOSITORY TYPE CODE TESTS RESULT OUT OF REFERENCE UNITS RANGE LAB GLU 74-99 mg/dL Glucose 79 Result Comment: The [place] Diabetes Association (ADA) provides guidance for cutoff [...] Standards of Medical Care in Diabetes 2016, [place] [employer]. Diabetes Care. 2016.39(Suppl 1). LAB [...] By: #### CBC, MG1, PHOS, BMP #### [facility] [address] [place] [id number] NURSING PROG Observed: 11/14/2017 Status: COMPLETED Source: [place] 2:54 AM [facility] REPOSITORY HNO ID: [id number] Author: Mark Dias (Rn), RN Service: Nursing [...] reassured. This note was completed by: Mark Dias RN [facility] Observed: 11/13/2017 Status: COMPLETED Source: [place] 3:03 PM [facility] [place] REPOSITORY HNO ID: [id number] Author: Dary Banks (Rn), RN Service: Wound/Ostomy [...] nursing staff. Pouching System Removed: Per last WO nurses note - 1. Filled in pannus crease at 3 and 9 o'clock with Stomahesive paste, then, applied Stomahesive wedges x2 each side. Caulked seams with paste. 2. Applied 1/4 piece Hollihesive washer (inner radial slits) direclty onto skin around site. Caulked inner aperture with Stomahesive paste. 3. [place] Premier Urostomy pouch with a Kyle Adapt oval convex ring #[id number] around aperture and Stomahesive paste around aperture [...] [place] Flex flat cut to fit Barrier (3/8 to 1 7/8) (#53082) (red) opening cut off center, center opening covered with Hollihesive barrier, and Coloplast SenSura [place] Flex High Output transparent filtered pouch (#04251) (red). Pouch connected to gravity drainage system with ConvaTec marcus adapter and Hy tape. Wear Time Goal: 3-5 days. Comments: Skin is very fragile and thin with scattered bruising due to chronic steroid treatment. Supplies Provided: 2 flanges and 2 high output pouches, 8 remover wipes ? Time Increment: 1 hour ? Dary JOHNSONN RN CWOCN PROCEDURE Observed: 11/13/2017 Status: COMPLETED Source: [place] 1:24 PM [facility] REPOSITORY [facility] ID: [id number] Author: Lisseth Claudio MD Service: Apheresis Author [...] Completed by Apheresis Nurse: Angella Ortiz RN [facility] STAFF PHYSICIAN NOTE OF PERSONAL INVOLVEMENT [...] MD November 13, 2017 4:45 PM Pager: [phone] CONSULT PROG Observed: 11/13/2017 Status: COMPLETED Source: [place] 12:44 PM [facility] REPOSITORY HNO ID: [id number] Author: Justina Pollard (Cy) Service: Hematology Author Type: Physician Reprint Sorter Type: Consult Progress Note Filed: 11/13/2017 3:14 PM Note Text: CONSULT PROGRESS NOTE SERVICE DATE: 11/13/2017 CONSULTING SERVICE: Hematology Subjective INTERVAL HPI: No acute events overnight Remains thrombocytopenic, received platelet yesterday for platelet count in the ' PLEX is due today Current hospital medications: [...] IR guided intervention (initially on 10/23 at [facility] and 10/26 here at [facility]. ? # Antiphospholipid antibody syndrome -recent home [...] November 13, 2017 TIME: 12:45 PM PAGER: [phone] PROGRESS Observed: 11/13/2017 Status: COMPLETED Source: [place] 12:11 PM [facility] REPOSITORY HNO ID: [id number] Author: Ros Wayne Service: General Internal Medicine Author Type: Physician Type: Progress Notes Filed: 11/13/2017 2:46 PM Note Text: RAF Terry PROGRESS NOTE For questions regarding this patient today please page [phone] After 5 pm on weekdays and 3pm on weekends and holidays please page correspondent pager [phone] SERVICE DATE: 11/13/2017 SERVICE TIME: 12:12 PM [...] IR emobolization of left L3 artery at [facility] on 10/23 IR embolization of left L2 [...] contrast, now requiring dialysis First HD at [facility] on 10/25 with tunneled dialysis catheter placement [...] this morning, access site for embolization at [facility], no erythema or induration appreciated on exam, exquisitely TTP Groin study showed no signs of PSA, known AV fistula visualized with retrograde flow, vascular med aware- no further recs 10/28: pain less severe, no physical exam findings Repeat Leg DVT shows no pseudoaneurysm Likely due to nerve compression/RP hematoma causing compressive symtpoms S/p R groin drain placed at [facility] on 10/24 s/p L [facility]in drain [facility] during embolization on 10/26 Plan: - Pain management-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 [facility] - Will continue to wean dilaudid [...] November 13, 2017 TIME: 12:12 PM PAGER: [phone] RAF Terry ATTENDING NOTE: Chart reviewed, patient [...] bridge Ros Wayne MD FACP Attending, pager [phone] THERAPY NT Observed: 11/13/2017 Status: COMPLETED Source: [place] 10:52 AM [facility] REPOSITORY HNO ID: [id number] Author: Indra Woods (Doughnut Machine Operator Helper) Service: Physical Therapy Author Type: Rx Specialist Type: Therapy (PT/OT/Speech/Resp) Filed: 11/13/2017 11:04 AM Note Text: Attestation signed by Brenda Meraz (Pt) at 11/13/2017 1:01 PM I reviewed and agree with the assessment as documented above. SIGNATURE: Brenda Meraz, PT DATE: November 13, 2017 TIME: 1:00 PM Physical Therapy Treatment SERVICE DATE: 11/13/2017 SERVICE TIME: 932 to 1043 ROOM: [place] [address] Recommended Discharge Disposition: Acute Rehab Justification For [...] (generalized);Unsteadiness on feet Interventions Provided: Gait Training (37476);Therapeutic Activity (85315);Therapeutic Exercise (75321) Therapeutic Exercise (68290) Treatment Minutes: 23 2 units Skilled Intervention(s): Patient instructed in and performed supine exercises for 20?rep: AP, ?QS for 3 second hold, heelslides, SAQ, hip abduction; seated: 20 reps: LAQ, marching, hip abduction?with minimal?verbal and tactile cues for pacing and proper technique. Patient required AAROM for heelslides, hip abduction and marching. Educated patient in reasoning for each exercise. ? Therapeutic Activity (94061) Treatment Minutes: 28 2 units Skilled Intervention(s): [...] for lines and tubes management. Gait Training (31933) Treatment Minutes: 19 1 unit Skilled Intervention(s): [...] CODE: PT 6 Clicks Score: 12 (11/13/17 0907) Mobility: Walking and Moving Around Current Status [...] 13, 2017 TIME: 10:52 AM PAGER/CONTACT #: [phone] CBC Collected: 11/13/2017 Status: F Source: [place] 8:04 AM [facility] REPOSIT[facility] TYPE [...] By: #### CBC, MG1, PHOS, BMP #### [facility] [address] [place] [address] MAGNESIUM Collected: 11/13/2017 Status: F Source: [place] 8:04 AM [facility] REPOSITORY TYPE CODE TESTS RESULT OUT OF REFERENCE UNITS RANGE LAB MG 1.7-2.3 mg/dL Magnesium 2.1 Result Comment: Results may be falsely increased due to interference by hemolysis. Suggest reorder as clinically indicated. Performed By: #### CBC, MG1, PHOS, BMP #### [facility] [address] [place] [address] PHOSPHORUS Collected: 11/13/2017 Status: F Source: [place] 8:04 AM [facility] REPOSITORY TYPE CODE TESTS RESULT OUT OF REFERENCE UNITS RANGE LAB PHOS 2.7-4.8 mg/dL Phosphorus 3.5 Result Comment: Results may be falsely increased due to interference by hemolysis. Suggest reorder as clinically indicated. Performed By: #### CBC, MG1, PHOS, BMP #### [facility] [address] [place] [id number] BASIC METABOLIC PANL Collected: 11/13/2017 Status: F Source: [place] 8:04 AM [facility] REPOSITORY TYPE CODE TESTS RESULT OUT OF REFERENCE UNITS RANGE LAB GLU 74-99 mg/dL Low Glucose 73 Result Comment: The [place] Diabetes [employer] (ADA) provides guidance for cutoff [...] Standards of Medical Care in Diabetes 2016, [place] [employer]. Diabetes Care. 2016.39(Suppl 1). LAB [...] By: #### CBC, MG1, PHOS, BMP #### [facility] [address] [place], [place] [address] NURSING PROG Observed: 11/12/2017 Status: COMPLETED Source: [place] 8:27 PM [facility] [place] REPOSITORY HNO ID: [id number] Author: Mark Dias (Rn), RN Service: Nursing [...] light placed within pt's reach. Was reassured. 223 Medicated for c/o pain, see MAR. 06 Medicated Again for pain, see MAR. This note was completed by: Mark Dias RN PROGRESS Observed: 11/12/2017 Status: COMPLETED Source: [place] 7:47 PM [facility] REPOSITORY [facility] ID: [id number] Author: Edel Roman (Rn), RN Service: Nursing Author Type: Registered Nurse Type: Progress Notes Filed: 11/12/2017 7:48 PM Note Text: Nursing Progress Note Vital Molecular Biology Professor Assessment Note Patient Name: Paloma Cannon Patient [...] RN CBC Collected: 11/12/2017 Status: F Source: [place] 5:04 PM [facility] REPOSITORY TYPE CODE TESTS RESULT OUT [...] Absolute nRBC Performed By: #### CBC #### [facility] [address] [place] [address] [facility] Observed: 11/12/2017 Status: COMPLETED Source: [place] 2:52 PM [facility] REPOSITORY HNO ID: [id number] Author: Luci Hanson (Rn), RN Service: Wound/Ostomy [...] per nursing staff Current pouching system: Removed- [place] Hollihesive wedge at 3 and 9 o'clock; 2x2 Hollihesive washer, cut to 7/8 x 1 (inner radial slits), caulk seams with stomahesive paste, Kyle Premier Urostomy Pouch (outer radial slits), Adapt Oval Convex Ring ([id number] small), connected to gravity drainage, mefix tape. [...] 3. Kyle Premier Urostomy pouch with a Kyle Adapt oval convex ring #[id number] around aperture and Stomahesive paste around aperture of convex ring. 4. Mefix at 3 and 9 o'clock. Made a slit at area where left groin crease is. Wear Time: 3-7 days Time Increment: 45 minutes Luci STEVE, RN, CWOCN CITRATED PLT COUNT Collected: 11/12/2017 Status: F Source: [place] 8:52 AM [facility] REPOSITORY TYPE CODE TESTS RESULT OUT OF REFERENCE UNITS RANGE LAB PLTCIT 150-400 K/uL Low Citrated Plt 22 Count Result Comment: Result checked and verified No clot detected. Reviewed Sodium Citrate Sample. Performed By: #### CITPLT #### [facility] [address] [place], [place] [address] PROGRESS Observed: 11/12/2017 Status: COMPLETED Source: [place] 7:03 AM [facility] REPOSITORY HNO ID: [id number] Author: Edson Mohr Service: General Internal Medicine Author Type: Physician Type: Progress Notes Filed: 11/12/2017 2:59 PM Note Text: DEPARTMENT OF INTERNAL MEDICINE: PROGRESS NOTE PRIMARY TEAM: RAF Terry Weekdays 7 am to 5 pm/Weekend 7 am to 3 pm: Page [phone] (Dayton Acuna) 5 pm to 7 am/Weekend 3 pm to 7 am: Anode Adjuster Pager [phone] PATIENT NAME: Paloma Cannon BRIEF PLAN FOR [...] CBC, Coags, BMP, Mg, Phos Recent Labs 11/12/1718 11/11/17 1517 11/11/17 0335 11/10/17 0336 WBC [...] IR emobolization of left L3 artery at [facility] on 10/23 IR embolization of left L2 [...] contrast, now requiring dialysis First HD at [facility] on 10/25 with tunneled dialysis catheter placement [...] this morning, access site for embolization at [facility], no erythema or induration appreciated on exam, exquisitely TTP Groin study showed no signs of PSA, known AV fistula visualized with retrograde flow, vascular med aware- no further recs 10/28: pain less severe, no physical exam findings Repeat Leg DVT shows no pseudoaneurysm Likely due to nerve compression/RP hematoma causing compressive symtpoms S/p R groin bag placed at [facility] on 10/24 s/p L groin bag placed at [facility] during embolization on 10/26 Plan: - Pain management-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 [facility] - Will continue to wean dilaudid as pt tolerates, currently kept her on Dilaudid 0.2 mg q4h PRN for pain Lines: Apheresis Catheter: 10/25/2017 Zuniga Catheter: Present 10/23/2017 SIGNATURE: Dayton Acuna MD, PGY2 PAGER: [phone] DATE of SERVICE: November 12, 2017 TIME of SERVICE: 7:03 AM This note is not final until signed by a Staff Physician [facility] STAFF PHYSICIAN NOTE OF PERSONAL INVOLVEMENT [...] by PE/DVT, DAH , HIT was on [facility] coumadin, cytoxan , prednisone and pheresis. Recent admission for DAH. Discharged on ?fondaparinux?7.5mg daily? 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 requiring MASONRY CONTRACTOR ADMINISTRATOR , volume overload, anemia and ?persistent thrombocytopenia, [...] PM CBC Collected: 11/12/2017 Status: F Source: [place] 5:18 AM [facility] REPOSITORY TYPE CODE TESTS RESULT OUT [...] By: #### CBC, MG1, PHOS, BMP #### [facility] [address] [place], [place] [address] MAGNESIUM Collected: 11/12/2017 Status: F Source: [place] 5:18 AM [facility] REPOSITORY TYPE CODE TESTS RESULT OUT OF REFERENCE UNITS RANGE LAB MG 1.7-2.3 mg/dL Magnesium 1.8 Performed By: #### CBC, MG1, PHOS, BMP #### [facility] [address] [place], [place] [address] PHOSPHORUS Collected: 11/12/2017 Status: F Source: [place] 5:18 AM [facility] REPOSITORY TYPE CODE TESTS RESULT OUT OF REFERENCE UNITS RANGE LAB PHOS 2.7-4.8 mg/dL Phosphorus 3.3 Performed By: #### CBC, MG1, PHOS, BMP #### [facility] [address] [place], [place] [address] BASIC METABOLIC PANL Collected: 11/12/2017 Status: F Source: [place] 5:18 AM [facility] REPOSITORY TYPE CODE TESTS RESULT OUT OF REFERENCE UNITS RANGE LAB GLU 74-99 mg/dL High Glucose 128 Result Comment: The [place] Diabetes Association (ADA) provides guidance for cutoff [...] Standards of Medical Care in Diabetes 2016, [place] Diabetes Association. Diabetes Care. 2016.39(Suppl 1). LAB [...] By: #### CBC, MG1, PHOS, BMP #### [facility] [address] [place], [place] [address] CONSULT PROG Observed: 11/11/2017 Status: COMPLETED Source: [place] 7:48 PM [facility] REPOSITORY HNO ID: [id number] Author: Luz Maria Wolfe) Service: Hematology/Oncology Author [...] IR guided intervention (initially on 10/23 at [facility] and 10/26 here at [facility]. ? # Antiphospholipid antibody syndrome -recent home [...] PM CBC Collected: 11/11/2017 Status: F Source: [place] 3:17 PM [facility] REPOSITORY TYPE CODE TESTS RESULT OUT [...] Absolute nRBC Performed By: #### CBC #### [facility] [address] [place], [place] [address] TYPE AND SCREEN Collected: 11/11/2017 Status: F Source: [place] 9:47 AM [facility] REPOSITORY TYPE CODE TESTS RESULT OUT OF REFERENCE UNITS RANGE LAB %ABR B ABO/RH(D) POSITIVE LAB % Antibody POS Screen Performed By: #### TSCR #### [facility] [address] [place], [place] [address] PROGRESS Observed: 11/11/2017 Status: COMPLETED Source: [place] 6:53 AM [facility] REPOSITORY HNO ID: [id number] Author: Edson Mohr Service: General Internal Medicine Author Type: Physician Type: Progress Notes Filed: 11/11/2017 12:07 PM Note Text: RAF Terry PROGRESS NOTE For questions regarding this patient today please page [phone] After 5 pm on weekdays and 3pm on weekends and holidays please page correspondent pager [phone] SERVICE DATE: 11/11/2017 SERVICE TIME: 6:53 AM [...] IR emobolization of left L3 artery at [facility] on 10/23 IR embolization of left L2 [...] kidney injury) (HCC) CAPRICE on CKD III, / contrast, now requiring dialysis First HD at [facility] on 10/25 with tunneled dialysis catheter placement [...] this morning, access site for embolization at [facility], no erythema or induration appreciated on exam, exquisitely TTP Groin study showed no signs of PSA, known AV fistula visualized with retrograde flow, vascular med aware- no further recs 10/28: pain less severe, no physical exam findings Repeat Leg DVT shows no pseudoaneurysm Likely due to nerve compression/RP hematoma causing compressive symtpoms S/p R groin drain placed at [facility] on 10/24 s/p L [facility]ization on 10/26 Plan: - Pain management-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 [facility] - Will continue to wean dilaudid [...] November 11, 2017 TIME: 6:53 AM PAGER: [phone] IM STAFF ADDENDUM -Raf Terry TEAM Patient [...] PM CBC Collected: 11/11/2017 Status: F Source: [place] 3:35 AM [facility] [place] REPOSITORY TYPE CODE TESTS RESULT OUT OF [...] By: #### CBC, MG1, PHOS, BMP #### [facility] [address] [place], [place] [address] MAGNESIUM Collected: 11/11/2017 Status: F Source: [place] 3:35 AM [facility] REPOSITORY TYPE CODE TESTS RESULT OUT OF REFERENCE UNITS RANGE LAB MG 1.7-2.3 mg/dL Magnesium 1.8 Performed By: #### CBC, MG1, PHOS, BMP #### [facility] [address] [place], [place] [address] PHOSPHORUS Collected: 11/11/2017 Status: F Source: [place] 3:35 AM [facility] REPOSITORY TYPE CODE TESTS RESULT OUT OF REFERENCE UNITS RANGE LAB PHOS 2.7-4.8 mg/dL Phosphorus 3.4 Performed By: #### CBC, MG1, PHOS, BMP #### [facility] [address] [place], [place] [address] BASIC METABOLIC PANL Collected: 11/11/2017 Status: F Source: [place] 3:35 AM [facility] REPOSITORY TYPE CODE TESTS RESULT OUT OF REFERENCE UNITS RANGE LAB GLU 74-99 mg/dL High Glucose 123 Result Comment: The [place] Diabetes Association (ADA) provides guidance for cutoff [...] Standards of Medical Care in Diabetes 2016, [place] Diabetes Association. Diabetes Care. 2016.39(Suppl 1). LAB [...] By: #### CBC, MG1, PHOS, BMP #### [facility] [address] [place], [place] [address] CONSULT PROG Observed: 11/10/2017 Status: COMPLETED Source: [place] 6:44 PM [facility] REPOSITORY HNO ID: [id number] Author: Jefferson Willett (Durga) Service: Hematology/Oncology Author [...] IR guided intervention (initially on 10/23 at [facility] and 10/26 here at [facility]. ? # Antiphospholipid antibody syndrome -Current home [...] NURSING PROG Observed: 11/10/2017 Status: COMPLETED Source: [place] 6:40 PM [facility] REPOSITORY HNO ID: [id number] Author: Grace Deal (Rn), RN Service: Nursing [...] maintained. PROGRESS Observed: 11/10/2017 Status: COMPLETED Source: [place] 4:06 PM [facility] REPOSITORY HNO ID: [id number] Author: Catherine Oh (Durga)MD Service: Nephrology Author [...] Oh MD Fellow Nephrology and Hypertension Pager: [phone] November 10, 2017 4:06 PM THERAPY NT Observed: 11/10/2017 Status: COMPLETED Source: [place] 3:36 PM [facility] [place] REPOSITORY O ID: [id number] Author: Zahra Burks (Go-L) Service: Occupational Therapy Author Type: [facility] Type: Therapy (PT/OT/Speech/Resp) Filed: 11/10/2017 3:40 PM Note Text: Occupational Therapy Treatment SERVICE DATE: 11/10/2017 SERVICE TIME: 1450 to 1516 ROOM: [place] [address] Recommended Discharge Disposition: Acute Rehab Justification For [...] daily living (ADL) Interventions Provided: Therapeutic Exercise (62333);Therapeutic Activity (04333) Therapeutic Exercise (22242) Treatment Minutes: 16 1 unit Skilled Intervention(s): [...] rolls, D1 flexion/extension, D2 flexion/extension. Therapeutic Activity (62994) Treatment Minutes: 10 1 unit Skilled Intervention(s): [...] (11/10/171449) Self Care Current Status (G8987): CK (11/10/171449) Self Care Goal Status (G8988): CJ (11/10/171449) [...] November 10, 2017 TIME: 3:36 PM PAGER: [phone] XR CHEST 1V FRONTAL Observed: 11/10/2017 Status: F Source: [facility] 12:26 PM CLINIC MAIN CAMPUS REPOSITORY * [...] pneumothorax identified. Cardiomediastinal silhouette: Stable cardiomediastinal silhouette. Dopeman: MURTAZA Transcribe Date/Time: Nov 10 2017 2:02P Dictated by : ELSA SHIN MD This examination was interpreted and the report reviewed and electronically signed by: ELSA SHIN MD on Nov 10 2017 2:05PM EST [id number] THERAPY NT Observed: 11/10/2017 Status: COMPLETED Source: [place] 11:52 AM [facility] REPOSITORY O ID: [id number] Author: Indra Woods (Doughnut Machine Operator Helper) Service: Physical Therapy Author Type: Rx Specialist Type: Therapy (PT/OT/Speech/Resp) Filed: 11/10/2017 12:07 PM Note Text: Attestation signed by Brenda Meraz (Pt) at 11/10/2017 1:03 PM I reviewed and agree with the assessment as documented above. SIGNATURE: Brenda Meraz PT DATE: November 10, 2017 TIME: 1:03 PM Physical Therapy Treatment SERVICE DATE: 11/10/2017 SERVICE TIME: 1023 to 1143 ROOM: [place] [address] Recommended Discharge Disposition: Acute Rehab Justification For [...] (generalized);Unsteadiness on feet Interventions Provided: Gait Training (96664);Therapeutic Activity (88590);Therapeutic Exercise (78220) Therapeutic Exercise (74741) Treatment Minutes: 25 2 units Skilled Intervention(s): Patient instructed in and performed supine exercises for 20 rep: AP, heelslides, SAQ, hip abduction; seated: 20 reps: AP and circles, LAQ, 10 reps: marching, hip abduction with minimal verbal and tactile cues for pacing and proper technique. Educated patient in reasoning for each exercise. Patient stated doing heel cord stretching with sheet. Therapeutic Activity (61878) Treatment Minutes: 15 1 unit Skilled Intervention(s): [...] stand for transfer with walker Gait Training (71541) Treatment Minutes: 30 2 units Skilled Intervention(s): [...] PTA PATIENT NAME: Paloma Cannon DATE: November 10, 2017 TIME: 11:53 AM PAGER/CONTACT #: [phone] CASE MANAGEM Observed: 11/10/2017 Status: COMPLETED Source: [place] 9:49 AM [facility] REPOSITORY [facility] ID: [id number] Author: Jacinta Olmedo (Rn), RN Service: Care Management Author Type: Registered Nurse Type: Care Mgt Progress Note Filed: 11/10/2017 1:51 PM Note Text: CARE MANAGEMENT PROGRESS NOTE SERVICE DATE: 11/10/2017 SERVICE TIME: 9:49 AM LOS: 16 days Needs Prior to Discharge: Accepting Facility;Insurance Authorization;Discharge Transportation Referal info manually faxed to [facility]- attnShane Lei f) [phone] for review (pt first choice as it is very close to home) [facility] declines d/t pt complexity and accepting only short term patients. Joyce Borrero, CC [facility] Marla Chaparro (p) [phone] [facility] may be able to accept. She [...] 10, 2017 TIME: 9:49 AM PAGER/CONTACT #: [phone] PROGRESS Observed: 11/10/2017 Status: COMPLETED Source: [place] 6:39 AM [facility] REPOSITORY HNO ID: [id number] Author: Edson Mohr Service: General Internal Medicine Author Type: Physician Type: Progress Notes Filed: 11/10/2017 1:37 PM Note Text: DEPARTMENT OF INTERNAL MEDICINE: PROGRESS NOTE PRIMARY TEAM: RAF Terry Weekdays 7 am to 5 pm/Weekend 7 am to 3 pm: Page [phone] (Dayton Acuna) Week 5 pm to 7 am/Weekend 3 pm to 7 am: Anode Adjuster Pager [phone] PATIENT NAME: Paloma Cannon BRIEF PLAN FOR [...] IR emobolization of left L3 artery at [facility] on 10/23 IR embolization of left L2 [...] contrast, now requiring dialysis First HD at [facility] on 10/25 with tunneled dialysis catheter placement [...] this morning, access site for embolization at [facility], no erythema or induration appreciated on exam, exquisitely TTP Groin study showed no signs of PSA, known AV fistula visualized with retrograde flow, vascular med aware- no further recs 10/28: pain less severe, no physical exam findings Repeat Leg DVT shows no pseudoaneurysm Likely due to nerve compression/RP hematoma causing compressive symtpoms S/p R groin bag placed at [facility] on 10/24 s/p L [facility] during embolization on 10/26 Plan: - Pain management-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 [facility] - Will continue to wean dilaudid as pt tolerates, currently kept her on Dilaudid 0.4 mg q4h PRN for pain ? SIGNATURE: Dayton Acuna MD, PGY2 PAGER: [phone] DATE of SERVICE: November 10, 2017 TIME of SERVICE: 6:39 PM This note is not final until signed by a Staff Physician [facility] STAFF PHYSICIAN NOTE OF PERSONAL INVOLVEMENT [...] by PE/DVT, DAH , HIT was on [facility] coumadin, cytoxan , prednisone and pheresis. Recent admission for DAH. Discharged on ?fondaparinux?7.5mg daily? 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 requiring MASONRY CONTRACTOR ADMINISTRATOR , volume overload, thrombocytopenia, persistent anemia ? [...] ? CBC Collected: 11/10/2017 Status: F Source: [place] 3:36 AM [facility] REPOSITORY TYPE CODE TESTS RESULT OUT [...] By: #### CBC, MG1, PHOS, BMP #### [facility] [address] [place], [place] [address] MAGNESIUM Collected: 11/10/2017 Status: F Source: [place] 3:36 AM [facility] REPOSITORY TYPE CODE TESTS RESULT OUT OF REFERENCE UNITS RANGE LAB MG 1.7-2.3 mg/dL Magnesium 1.9 Performed By: #### CBC, MG1, PHOS, BMP #### [facility] [address] [place], [place] [address] PHOSPHORUS Collected: 11/10/2017 Status: F Source: [place] 3:36 AM [facility] REPOSITORY TYPE CODE TESTS RESULT OUT OF REFERENCE UNITS RANGE LAB PHOS 2.7-4.8 mg/dL Phosphorus 3.3 Performed By: #### CBC, MG1, PHOS, BMP #### [facility] [address] [place] [id number] BASIC METABOLIC PANL Collected: 11/10/2017 Status: F Source: [place] 3:36 AM [facility] REPOSITORY TYPE CODE TESTS RESULT OUT OF REFERENCE UNITS RANGE LAB GLU 74-99 mg/dL Glucose 91 Result Comment: The [place] Diabetes Association (ADA) provides guidance for cutoff [...] Standards of Medical Care in Diabetes 2016, [place] Diabetes Association. Diabetes Care. 2016.39(Suppl 1). LAB [...] By: #### CBC, MG1, PHOS, BMP #### [facility] [address] [place], [place] [address] CONSULT PROG Observed: 11/09/2017 Status: COMPLETED Source: [place] 4:35 PM [facility] [place] REPOSITORY HNO ID: [id number] Author: Justina Pollard (Cy) Service: Hematology Author Type: Physician Reprint Sorter Type: Consult Progress Note Filed: 11/09/2017 4:45 [...] tablet (BACTRIM,SEPTRA) 2 tablet ORAL/FEEDING TUBE MO-WE- hydrocortisone sodium succinate (PF) 100 mg injection [...] IR guided intervention (initially on 10/23 at [facility] and 10/26 here at [facility]. ? # Antiphospholipid antibody syndrome -Current therapy [...] November 09, 2017 TIME: 4:35 PM PAGER: [phone] THERAPY NT Observed: 11/09/2017 Status: COMPLETED Source: [place] 1:37 PM [facility] REPOSITORY HNO ID: [id number] Author: Zahra Burks (Elroy) Service: Occupational Therapy Author Type: [facility] Type: Therapy (PT/OT/Speech/Resp) Filed: 11/09/2017 2:27 PM Note Text: Attestation signed by Yue Uriostegui at 11/09/2017 2:36 PM I reviewed and agree with the documentation corresponding to this therapy visit. SIGNATURE: BARRIE Maldonado DATE: November 09, 2017 TIME: 2:36 PM Occupational Therapy Treatment SERVICE DATE: 11/09/2017 SERVICE TIME: 1102 to 1213 ROOM: [place] [address] Recommended Discharge Disposition: Acute Rehab Justification For [...] daily living (ADL) Interventions Provided: Therapeutic Exercise (43332);Therapeutic Activity (27777);Self Intermediate Management (67152) Therapeutic Exercise (60228) Treatment Minutes: 28 2 units Skilled Intervention(s): [...] press, elbow flexion, elbow extension, Therapeutic Activity (02705) Treatment Minutes: 15 1 unit Skilled Intervention(s): [...] at a time for additional support. Self Intermediate Management (05556) Treatment Minutes: 28 2 units Skilled Intervention(s): [...] November 09, 2017 TIME: 1:37 PM PAGER: [phone] PROGRESS Observed: 11/09/2017 Status: COMPLETED Source: [place] 11:38 AM [facility] REPOSITORY HNO ID: [id number] Author: Edson Mohr Service: General Internal Medicine Author Type: Physician Type: Progress Notes Filed: 11/09/2017 1:58 PM Note Text: DEPARTMENT OF INTERNAL MEDICINE: PROGRESS NOTE PRIMARY TEAM: RAF Terry Weekdays 7 am to 5 pm/Weekend 7 am to 3 pm: Page [phone] Weekdays 5 pm to 7 am/Weekend 3 pm to 7 am: Anode Adjuster Pager [phone] PATIENT NAME: Paloma Cannon BRIEF PLAN FOR [...] IR emobolization of left L3 artery at [facility] on 10/23 IR embolization of left L2 [...] contrast, now requiring dialysis First HD at [facility] on 10/25 with tunneled dialysis catheter placement [...] this morning, access site for embolization at [facility], no erythema or induration appreciated on exam, exquisitely TTP Groin study showed no signs of PSA, known AV fistula visualized with retrograde flow, vascular med aware- no further recs 10/28: pain less severe, no physical exam findings Repeat Leg DVT shows no pseudoaneurysm Likely due to nerve compression/RP hematoma causing compressive symtpoms S/p R groin bag placed at [facility] on 10/24 s/p L [facility] during embolization on 10/26 Plan: - Pain management-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 [facility] - Will continue to wean dilaudid as pt tolerates, currently kept her on Dilaudid 0.4 mg q4h PRN for pain ? ? ? SIGNATURE: Dayton Acuna MD, PGY2 PAGER: [phone] DATE of SERVICE: November 09, 2017 TIME of SERVICE: 11:38 AM This note is not final until signed by a Staff Physician [facility] STAFF PHYSICIAN NOTE OF PERSONAL INVOLVEMENT [...] by PE/DVT, DAH , HIT was on [facility] coumad[facility], cytoxan , prednisone and pheresis. Recent admission for DAH. Discharged on ?fondaparinux?7.5mg daily? 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 requiring MASONRY CONTRACTOR ADMINISTRATOR , volume overload, thrombocytopenia, persistent anemia ? [...] CASE MANAGEM Observed: 11/09/2017 Status: COMPLETED Source: [place] 11:16 AM [facility] REPOSITORY [facility] ID: [id number] Author: Jacinta Aguilar (Rn) JEFF Olmedo Service: Care Management Author Type: Registered Nurse Type: Care Mgt Progress Note Filed: 11/09/2017 11:17 AM Note Text: CARE MANAGEMENT PROGRESS NOTE SERVICE DATE: 11/09/2017 SERVICE TIME: 11:16 AM LOS: 15 days Needs Prior to Discharge: Accepting Facility;Discharge Transportation;Facility or Agency Choices;Insurance Authorization;Patient/Family Dc date TBD CC [facility] contact Is Krysta (p) [phone] (please contact directly rather through ecin) . Per Krysta, pt would like [facility] placement as close to home as possible- [facility] vs [facility]. Referal sent and awaiting response from [facility]. Pt will need close lab montoring (2x/day) of blood status for possible need for transfusion. [facility] may be the best option and pt would be agreeable if not accepted by [facility] or [facility]. Current on 2LO2/nc, has home O2 2L 02 via [employer]. .Apheresis, [facility] (may be short term). If pt presents to bedside please contact Krysta at (p) [phone]. CM to continue to follow SIGNATURE: Jacinta Olmedo RN PATIENT NAME: Paloma Cannon DATE: November 09, 2017 TIME: 11:16 AM PAGER/CONTACT #: [phone] [facility] Observed: 11/09/2017 Status: COMPLETED Source: [place] 10:00 AM [facility] REPOSITORY HNO ID: [id number] Author: Kayla Levin (Therapist), GINA Service: Music Therapy Author Type: Music Therapist [...] follow up as able. SIGNATURE: Kayla Levin [facility] PATIENT NAME: Paloma Cannon DATE: November 10, 2017 TIME: 9:16 AM PAGER/CONTACT #: [phone] [facility] Observed: 11/09/2017 Status: COMPLETED Source: [place] 9:53 AM [facility] REPOSITORY HNO ID: [id number] Author: Aline (Rn) JEFF Schreiber Service: Wound/Ostomy [...] noted. used stomahesive powder and covered with [place] Hollihesive skin barrier wedge. ? Pouching: Removed: [place] Hollihesive skin barrier washer cut open 3/4, wedge at 3 and 9 o'clock, then [place] premier flat urostomy pouch cut opening 1, connected to gravity drianage bag. Wear Time: 24 hours. Paste completely swelled Recommendations: Pouching System: Kyle Hollihesive wedge at 3 and 9 o'clock; 2x2 Hollihesive washer, cut to 7/8 x 1 (inner radial slits), caulk seams with stomahesive paste, [place] Premier Urostomy Pouch (outer radial slits), Adapt Oval Convex Ring (39987 small), connected to gravity drainage, mefix tape. Wear Time: 7 days is the goal Comment: 1 set of supplies at bedside Time Increment: 45 minutes .Aline Schreiber, RN, BSN, CWCN, COCN, CCCN WOC Nursing - Please place consult via [employer]. Thank you. (M-F: [phone]; Weekends AND Holidays: [phone]). Zahra Jacinto, RN, BSN (G90 Nursing Shadow) CBC Collected: 11/09/2017 Status: F Source: [place] 5:49 AM [facility] REPOSITORY TYPE CODE TESTS RESULT [...] By: #### CBC, MG1, PHOS, BMP #### [facility] [address] [place] [id number] MAGNESIUM Collected: 11/09/2017 Status: F Source: [place] 5:49 AM [facility] [place] REPOSITORY TYPE CODE TESTS RESULT OUT OF REFERENCE UNITS RANGE LAB MG 1.7-2.3 mg/dL Magnesium 2.0 Performed By: #### CBC, MG1, PHOS, BMP #### [facility] [address] [place] [address] PHOSPHORUS Collected: 11/09/2017 Status: F Source: [place] 5:49 AM [facility] REPOSITORY TYPE CODE TESTS RESULT OUT OF REFERENCE UNITS RANGE LAB PHOS 2.7-4.8 mg/dL Phosphorus 3.8 Performed By: #### CBC, MG1, PHOS, BMP #### [facility] [address] [place] [address] BASIC METABOLIC PANL Collected: 11/09/2017 Status: F Source: [place] 5:49 AM [facility] REPOSITORY TYPE CODE TESTS RESULT OUT OF REFERENCE UNITS RANGE LAB GLU 74-99 mg/dL Glucose 88 Result Comment: The [place] Diabetes Association (ADA) provides guidance for cutoff [...] Standards of Medical Care in Diabetes 2016, [place] [employer]. Diabetes Care. 2016.39(Suppl 1). LAB [...] By: #### CBC, MG1, PHOS, BMP #### [facility] [address] [place], [place] [address] TYPE AND SCREEN Collected: 11/09/2017 Status: F Source: [place] 5:49 AM [facility] REPOSITORY TYPE CODE TESTS RESULT OUT OF REFERENCE UNITS RANGE LAB %ABR B ABO/RH(D) POSITIVE LAB % Antibody POS Screen Performed By: #### TSCR #### [facility] [address] [place], [place] [address] CONSULT PROG Observed: 11/08/2017 Status: COMPLETED Source: [place] 5:01 PM [facility] REPOSITORY HNO ID: [id number] Author: Luz Maria Shukla) Aiden Service: Hematology [...] Component Latest Ref Rng AND Units 11/08/2017 [id number] Inhibitor <0.5 0.4 [id number] Activity >67 % 56 (L) [id number] Interp (NOTE) Component Latest Ref Rng AND [...] IR guided intervention (initially on 10/23 at [facility] and 10/26 here at [facility]. ? # Antiphospholipid antibody syndrome -Current therapy [...] November 08, 2017 TIME: 5:01 PM PAGER: [phone] Addendum I have repeated the pertinent features [...] PLT COUNT Collected: 11/08/2017 Status: F Source: [place] 2:30 PM [facility] REPOSITORY TYPE CODE TESTS RESULT OUT OF REFERENCE UNITS RANGE LAB PLTCIT 150-400 K/uL Low Citrated Plt 39 Count Result Comment: Result checked and verified No clot detected. Reviewed Sodium Citrate Sample. Performed By: #### CITPLT #### [facility] [address] [place], [place] [address] NUTRITION Observed: 11/08/2017 Status: COMPLETED Source: [place] 1:20 PM [facility] REPOSITORY HNO ID: [id number] Author: Thalia Rockwell (Diet-T) Service: Nutrition Therapy Author Type: Equity Research Analyst Type: Nutrition Filed: 11/08/2017 1:33 PM Note [...] November 08, 2017 TIME: 1:20 PM PAGER: [phone] [facility] Observed: 11/08/2017 Status: COMPLETED Source: [place] 12:41 PM [facility] [place] REPOSITORY HNO ID: [id number] Author: Tara (Jeff) Manny Vann RN Service: Wound/Ostomy Author Type: [...] noted. used stomahesive powder and covered with [place] Hollihesive skin barrier. Pouching: [place] Hollihesive skin barrier washer cut open 3/4, [...] 45 minutes EVI Ratliff RN CWOCN [facility] nursing pager [phone] (M-F 7a-4p, Sat, Sun, Holiday 7a-3p) CASE MANAGEM Observed: 11/08/2017 Status: COMPLETED Source: [place] 11:28 AM [facility] REPOSITORY HNO ID: [id number] Author: Carmita Zee (Lisw) Service: (none) Author Type: Workday Director Type: Care Mgt Progress Note Filed: 11/08/2017 11:31 AM Note Text: CARE MANAGEMENT PROGRESS NOTE SERVICE DATE: 11/08/2017 SERVICE TIME: 11:28 AM LOS: 14 days Needs Prior to Discharge: Accepting Facility;Insurance Authorization;Discharge Transportation ERIKA met with the patient and her spouse. They would like for the patient to go to [place] closer to their home in [place]. SW provided a list. The patient chose [facility]. ERIKA sent the referral, waiting for a response. SIGNATURE: ISATU Katz PATIENT NAME: Paloma Cannon DATE: November 08, 2017 TIME: 11:28 AM PAGER/CONTACT #: [phone] [id number] EVALUATION Collected: 11/08/2017 Status: F Source: [place] 9:45 AM [facility] REPOSITORY TYPE CODE TESTS RESULT OUT OF REFERENCE UNITS RANGE LAB AD13IH <0.5 CZYBON53 0.4 Inhibitor Result Comment: This test was developed and its performance characteristics determined by [facility] [place] ([facility]). It has not been cleared or approved by the FDA. [facility] is regulated under CLIA as qualified to perform high-complexity testing. This test is used for clinical purposes. It should not be regarded as investigational or for research. LAB AD13A >67 % Low THDGMM71 Activity 54 Result Comment: This test was developed and its performance characteristics determined by [facility] [place] ([facility]). It has not been cleared or approved by the FDA. [facility] is regulated under CLIA as qualified to perform high-complexity testing. This test is used for clinical purposes. It should not be regarded as investigational or for research. LAB AD13AP LYIWBN45 Act Interp (NOTE) Result Comment: Performing Pathologist: Lisseth Ashley M.D. Abnormal - see comment below. SIGNIFICANT FINDINGS: 1. 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 the ALIGRT84 activity level is mildly decreased. ZKREXL69 INHIBITOR SCREEN AND/OR INHIBITOR ASSAY: YMPFXT18 inhibitor assay was performed using mixing studies after 1:1 mixing of normal pooled plasma and the patient's plasma, and residual ZZCYWL00 activity was measured using FRET technology. No SNZTSR20 inhibitor is detected (< or = 0.4 Inhibitor Units). SUMMARY: Thrombotic thrombocytopenic purpura (TTP), idiopathic (autoimmune) type, is unlikely. If clinically indicated, consider ordering LKUNYP47 activity and/or inhibitor assay in a new specimen. If clinically indicated, antibody assay is suggested to rule out thrombotic thrombocytopenic purpura (TTP), idiopathic (autoimmune-related) type. Correlate with other clinical conditions associated with decreased NNARKR03 activity such as hemolytic uremic syndrome, hematopoietic stem cell or solid organ transplantation, sepsis, DIC, HIV infection, inflammation, bloody diarrhea, liver disease, , malignancy, or certain drug effects (e.g.,clopidogrel, cyclosporin, mitomycin C, ticlopidine, etc), and congenital VRFPIT67 deficiency (Skylar-Rafaela syndrome). Severe hemolysis (Hb 2 g/L), hyperbilirubinemia, hyperlipidemia and elevated von Willebrand factor antigen levels can interfere with IANIMF14 activity assay. Recent transfusion or plasma exchange therapy can falsely normalize VKMIAW61 level, and mask the diagnosis of thrombotic thrombocytopenic purpura (TTP). Performed By: #### ADM13 #### [facility] [address] [place] [address] CONSULT PROG Observed: 11/08/2017 Status: COMPLETED Source: [place] 9:28 AM [facility] REPOSITORY HNO ID: [id number] Author: Cheri Cuba Service: Nephrology Author Type: [...] kg/m? Intake/Output Summary (Last 24 hours) at 11/08/17927 Last data filed at 11/08/17 0900 Gross [...] 3 sec to renal vein thrombosis ?requiring MASONRY CONTRACTOR ADMINISTRATOR since 10/26/2017 -Baseline Cr 1.2 to 1.5 [...] discuss with staff ? ? Consent for MASONRY CONTRACTOR ADMINISTRATOR: MASONRY CONTRACTOR ADMINISTRATOR initiation date: 10/26/17 Consent obtained and in EMR. SIGNATURE: Catherine Oh MD PATIENT NAME: Paloma Cannon DATE: November 08, 2017 TIME: 9:28 AM PAGER: [phone] TEACHING PHYSICIAN NOTE OF PERSONAL INVOLVEMENT IN [...] few weeks Cheri Cuba MD Beeper Number [id number] Authenticated by responsible provider. PROGRESS Observed: 11/08/2017 Status: COMPLETED Source: [place] 6:50 AM [facility] REPOSITORY HNO ID: [id number] Author: Dianna (Rn) JEFF Acevedo Service: (none) Author Type: Registered Nurse Type: Progress Notes Filed: 11/08/2017 6:50 AM Note Text: Nursing Progress Note Vital Molecular Biology Professor Assessment Note Patient Name: Paloma Cannon Patient Location: [place] [address] Patient Vitals in the past 4 hrs: 11/08/17 0500, BP:186/86, Temp:36.4 ?C (97.6 ?F), Temp src:Oral, Pulse:91, Resp:18, SpO2:94 % Status Change Related to: Cardiac;Vascular Issues (See Nursing Clinical Assessment For Details) The Following People Were Notified: Dross Puller/Provider: See Documentation Related to: Continuous Monitoring;Medications Additional Comments : This note was completed by: Dianna Acevedo RN PROGRESS Observed: 11/08/2017 Status: COMPLETED Source: [place] 6:43 AM [facility] REPOSITORY HNO ID: [id number] Author: Edson Mohr Service: General Internal Medicine Author Type: Physician Type: Progress Notes Filed: 11/08/2017 1:46 PM Note Text: DEPARTMENT OF INTERNAL MEDICINE: PROGRESS NOTE PRIMARY TEAM: RAF Terry Weekdays 7 am to 5 pm/Weekend 7 am to 3 pm: Page [phone] (Dayton Acuna) Weekdays 5 pm to 7 am/Weekend 3 pm to 7 am: Anode Adjuster Pager [phone] PATIENT NAME: Paloma Cannon BRIEF PLAN FOR [...] IR emobolization of left L3 artery at [facility] on 10/23 IR embolization of left L2 [...] contrast, now requiring dialysis First HD at [facility] on 10/25 with tunneled dialysis catheter placement [...] this morning, access site for embolization at [facility], no erythema or induration appreciated on exam, exquisitely TTP Groin study showed no signs of PSA, known AV fistula visualized with retrograde flow, vascular med aware- no further recs 10/28: pain less severe, no physical exam findings Repeat Leg DVT shows no pseudoaneurysm Likely due to nerve compression/RP hematoma causing compressive symtpoms S/p R groin bag placed at [facility] on 10/24 s/p L [facility] during embolization on 10/26 Plan: - Pain management-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 [facility] - Will continue to wean dilaudid as pt tolerates, currently kept her on Dilaudid 0.4 mg q3h PRN for pain ? ? SIGNATURE: Dayton Acuna MD, PGY2 PAGER: [phone] DATE of SERVICE: November 08, 2017 TIME of SERVICE: 11:43 AM This note is not final until signed by a Staff Physician [facility] STAFF PHYSICIAN NOTE OF PERSONAL INVOLVEMENT [...] by PE/DVT, DAH , HIT was on termite control technician coumadin, cytoxan , prednisone and pheresis. ?Recent admission for ?DAH. Discharged on fondaparinux?7.5mg daily? 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 requiring MASONRY CONTRACTOR ADMINISTRATOR , volume overload thrombocytopenia, persistent ?anemia ? [...] PM MAGNESIUM Collected: 11/08/2017 Status: F Source: [place] 12:39 AM [facility] REPOSITORY TYPE CODE TESTS RESULT OUT OF REFERENCE UNITS RANGE LAB MG 1.7-2.3 mg/dL Magnesium 2.1 Performed By: #### MG1, PHOS, BMP, CBC, RETIC #### [facility] [address], [place] [id number] PHOSPHORUS Collected: 11/08/2017 Status: F Source: [place] 12:39 AM [facility] REPOSITORY TYPE CODE TESTS RESULT OUT OF REFERENCE UNITS RANGE LAB PHOS 2.7-4.8 mg/dL Phosphorus 3.6 Performed By: #### MG1, PHOS, BMP, CBC, RETIC #### [facility] [address] [place], [place] [address] BASIC METABOLIC PANL Collected: 11/08/2017 Status: F Source: [place] 12:39 AM [facility] REPOSITORY TYPE CODE TESTS RESULT OUT OF REFERENCE UNITS RANGE LAB GLU 74-99 mg/dL High Glucose 112 Result Comment: The [place] [employer] (ADA) provides guidance for cutoff [...] Standards of Medical Care in Diabetes 2016, [place] [employer]. Diabetes Care. 2016.39(Suppl 1). LAB [...] #### MG1, PHOS, BMP, CBC, RETIC #### [facility] [address] [place], [place] [address] CBC Collected: 11/08/2017 Status: F Source: [place] 12:39 [facility] REPOSITORY TYPE CODE TESTS RESULT OUT [...] #### MG1, PHOS, BMP, CBC, RETIC #### [facility] [address] [place], [place] [address] RETICULOCYTE Collected: 11/08/2017 Status: F Source: [place] 12:39 [facility] REPOSITORY TYPE CODE TESTS RESULT OUT OF RANGE REFERENCE UNITS LAB RETC 0.4-2.0 % High Retic% 9.3 Result Comment: Results verified by dilution. LAB ABRET 0.0180-0.1000 M/uL High Abs Retic 0.247 Result Comment: Results verified by dilution. Performed By: #### MG1, PHOS, BMP, CBC, RETIC #### [facility] [address] [place], [place] [address] [id number] EVALUATION Collected: 11/08/2017 Status: F Source: [place] 12:39 AM [facility] REPOSITORY TYPE CODE TESTS RESULT OUT OF REFERENCE UNITS RANGE LAB AD13IH <0.5 CAVCDN06 0.4 Inhibitor Result Comment: This test was developed and its performance characteristics determined by [facility] and [facility] [place] ([facility]). It has not been cleared or approved by the FDA. [facility] is regulated under CLIA as qualified to perform high-complexity testing. This test is used for clinical purposes. It should not be regarded as investigational or for research. LAB AD13A >67 % Low AJQUKS69 Activity 56 Result Comment: This test was developed and its performance characteristics determined by [facility] and [facility] [place] ([facility]). It has not been cleared or approved by the FDA. [facility] is regulated under CLIA as qualified to perform high-complexity testing. This test is used for clinical purposes. It should not be regarded as investigational or for research. LAB AD13AP RMROTE10 Act Interp (NOTE) Result Comment: Performing Pathologist: Lisseth Ashley M.D. Abnormal - see comment below. SIGNIFICANT FINDINGS: 1. 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 the EKRWSF26 activity level is mildly decreased. IKPZZR35 INHIBITOR SCREEN AND/OR INHIBITOR ASSAY: YHDHPK06 inhibitor assay was performed using mixing studies after 1:1 mixing of normal pooled plasma and the patient's plasma, and residual OFSJXB56 activity was measured using FRET technology. No FERVXC41 inhibitor is detected (< or = 0.4 Inhibitor Units). SUMMARY: Thrombotic thrombocytopenic purpura (TTP), idiopathic (autoimmune) type, is unlikely. If clinically indicated, consider ordering MSZKLS14 activity and/or inhibitor assay in a new specimen. If clinically indicated, antibody assay is suggested to rule out thrombotic thrombocytopenic purpura (TTP), idiopathic (autoimmune-related) type. Correlate with other clinical conditions associated with decreased MULSFP50 activity such as hemolytic uremic syndrome, hematopoietic stem cell or solid organ transplantation, sepsis, DIC, HIV infection, inflammation, bloody diarrhea, liver disease, , malignancy, or certain drug effects (e.g.,clopidogrel, cyclosporin, mitomycin C, ticlopidine, etc), and congenital NSNATS50 deficiency (Skylar-Rafaela syndrome). Severe hemolysis (Hb 2 g/L), hyperbilirubinemia, hyperlipidemia and elevated von Willebrand factor antigen levels can interfere with BLNFUF94 activity assay. Recent transfusion or plasma exchange therapy can falsely normalize SCUXUR99 level, and mask the diagnosis of thrombotic thrombocytopenic purpura (TTP). Performed By: #### ADM13 #### [facility] [address] [address] NURSING PROG Observed: 11/07/2017 Status: COMPLETED Source: [place] 7:19 PM [facility] REPOSITORY HNO ID: [id number] Author: Grace Deal (Rn), RN Service: (none) Author Type: Registered Nurse Type: Nursing Progress Note Filed: 11/18/2017 7:19 AM Note Text: Nursing Progress Note Patient Name: Paloma Cannon Patient Location: [place] [id number] Daily Note:Patient medicated for pain, numerous times this shift. Effective temporarily. Raf Terry team made aware during bedside rounds. Patient educated regarding PRN medications. This note was completed by: Grace Deal RN [facility] Observed: 11/07/2017 Status: COMPLETED Source: [place] 5:26 PM [facility] REPOSITORY HNO ID: [id number] Author: Negrito Kelley (Therapist) Miranda Service: Art Therapy Author Type: Therapist Type: Allied Health Filed: 11/07/2017 5:28 PM Note Text: ART THERAPY NOTE SERVICE DATE: 11/07/2017 SERVICE TIME: 4:00 Referred By: PT Reason for Referral: anxiety COMMENTS: Consult was received and appreciated. Pt asleep upon attempt. Did not disturb. Will follow up as able. SIGNATURE: Negrito Jean, [facility], PATIENT NAME: Paloma Cannon DATE: November 07, 2017 TIME: 5:26 PM PAGER/CONTACT #: [phone] ALLIED [facility] Observed: 11/07/2017 Status: COMPLETED Source: [place] 2:55 PM [facility] REPOSITORY HNO ID: [id number] Author: Kayla Stewart (Therapist) GINA Levin Service: Music Therapy Author Type: Music Therapist Type: Allied Health Filed: 11/08/2017 9:18 AM Note Text: MUSIC THERAPY NOTE SERVICE DATE: 11/07/2017 Pt presented with neutral affect upon MT's arrival and was sitting up in the chair. IL introduced music therapy services to pt, to which pt expressed having received music therapy during previous admission and expressed interest in participating this admission. Pt requested MT return another day due to feeling fatigued and hoping to soon sleep. MT will follow up as able. SIGNATURE: Kayla Levin [facility] PATIENT NAME: Paloma Cannon DATE: November 08, 2017 TIME: 9:16 AM PAGER/CONTACT #: [phone] HISTORY PHYSICAL Observed: 11/07/2017 Status: COMPLETED Source: [place] 12:18 PM [facility] REPOSITORY HNO ID: [id number] Author: Indra Hoyt Service: Physical Therapy Author Type: Rx Specialist Type: HANDP Filed: 11/07/2017 12:27 PM Note Text: Attestation signed by Mandy SanchezPtDevonte Wakefield at 11/07/2017 12:29 PM I reviewed and agree with the documentation corresponding to this therapy visit. SIGNATURE: Mandy Barnesderick, DPT DATE: November 07, 2017 TIME: 12:29 PM Physical Therapy Treatment SERVICE DATE: 11/07/2017 SERVICE TIME: 1133 to 1211 ROOM: [place] [address] Recommended Discharge Disposition: Acute Rehab Justification For [...] at End of Session: OOB in Chair;Call Wagoenr in Reach (nursing aware) Tolerated Full Session [...] Diagnosis: Reduced mobility-other Interventions Provided: Gait Training (30175);Therapeutic Exercise (77938);Therapeutic Activity (55525) Therapeutic Exercise (65338) Treatment Minutes: 15 1 unit Skilled Intervention(s): [...] in reasoning for each exercise. Therapeutic Activity (28510) Treatment Minutes: 8 1 unit Skilled Intervention(s): Instructed patient in log roll technique Instructed patient in supine to sit pushing with upper extremities to sit up Education with importance of OOB activities Patient sat EOB for 5 mins for core strengthening with CGA/SBA Gait Training (54047) Treatment Minutes: 15 1 unit Skilled Intervention(s): [...] 07, 2017 TIME: 12:18 PM PAGER/CONTACT #: [phone] CONSULT PROG Observed: 11/07/2017 Status: COMPLETED Source: [place] 10:13 AM [facility] REPOSITORY O ID: [id number] Author: Luz Maria Wolfe Service: Hematology Author [...] IR guided intervention (initially on 10/23 at [facility] and 10/26 here at [facility]. ? # Antiphospholipid antibody syndrome -Current therapy [...] ( ordered) - #CAPRICE on CKD -On MASONRY CONTRACTOR ADMINISTRATOR since 10/26 SIGNATURE: Justina Pollard PA-C PATIENT NAME: Paloma Cannon DATE: November 07, 2017 TIME: 10:13 AM PAGER: [phone] Addendum: I have repeated the pertinent features [...] CASE MANAGEM Observed: 11/07/2017 Status: COMPLETED Source: [place] 9:26 AM [facility] REPOSITORY HNO ID: [id number] Author: Yeni Esqueda (Sw) Service: (none) Author Type: Workday Director Type: Care Mgt Progress Note Filed: 11/08/2017 [...] Heterosexual Gender Identity: Female Abuse History: No, 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 No Are There Practices or Beliefs That May Affect or Influence Care? 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 [...] Per chart pt was recently discharged from [facility] (10/22) after her 6th episode of respiratory [...] 07, 2017 TIME: 9:26 AM PAGER/CONTACT #: [phone] PROGRESS Observed: 11/07/2017 Status: COMPLETED Source: [place] 6:03 AM [facility] [place] REPOSITORY HNO ID: [id number] Author: Edson Mohr Service: General Internal Medicine Author Type: Physician Type: Progress Notes Filed: 11/07/2017 2:28 PM Note Text: DEPARTMENT OF INTERNAL MEDICINE: PROGRESS NOTE PRIMARY TEAM: RAF Terry Week 7 am to 5 pm/Weekend 7 am to 3 pm: Page [phone] (Dayton Acuna) 5 pm to 7 am/Weekend 3 pm to 7 am: Anode Adjuster Pager [phone] PATIENT NAME: Paloma Cannon BRIEF PLAN FOR [...] BMP, Mg, Phos Recent Labs 11/07/17 0430 11/06/17 2003 11/06/17 1012 11/06/17 0535 11/05/17 1908 11/05/17 0522 [...] IR emobolization of left L3 artery at [facility] on 10/23 IR embolization of left L2 [...] contrast, now requiring dialysis First HD at [facility] on 10/25 with tunneled dialysis catheter placement [...] this morning, access site for embolization at [facility], no erythema or induration appreciated on exam, exquisitely TTP Groin study showed no signs of PSA, known AV fistula visualized with retrograde flow, vascular med aware- no further recs 10/28: pain less severe, no physical exam findings Repeat Leg DVT shows no pseudoaneurysm Likely due to nerve compression/RP hematoma causing compressive symtpoms S/p R groin bag placed at [facility] on 10/24 s/p L [facility] during embolization on 10/26 Plan: - Pain management-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 [facility] - Will continue to wean dilaudid as pt tolerates, currently kept her on Dilaudid 0.4 mg q3h PRN for pain SIGNATURE: Dayton Acuna, MD, PGY2 PAGER: [phone] DATE of SERVICE: November 07, 2017 TIME of SERVICE: 6:03 AM This note is not final until signed by a Staff Physician [facility] STAFF PHYSICIAN NOTE OF PERSONAL INVOLVEMENT [...] by PE/DVT, DAH , HIT was on [facility] coumadin, cytoxan , prednisone and pheresis. Recent admission for DAH. Discharged on fondaparinux?7.5mg daily 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 requiring MASONRY CONTRACTOR ADMINISTRATOR , volume overload thrombocytopenia, persistent anemia ? [...] NURSING PROG Observed: 11/07/2017 Status: COMPLETED Source: [place] 5:18 AM [facility] REPOSITORY O ID: [id number] Author: Galdino Adams RN Service: Nursing Author Type: Registered Nurse Type: Nursing Progress Note Filed: 11/07/2017 5:20 AM Note Text: Nursing Progress Note Patient Name: Paloma Cannon Patient Location: H080 015/H080-16 Daily Note: Pt AANDOx3, continuing to refuse Q2 hr turns. Educated pt on the importance of turning and pt verbally understands. Pt able to turn self with assistance. Pt pain well controlled with dilaudid per MAR. This note was completed by: Galdino Adams RN MAGNESIUM Collected: 11/07/2017 Status: F Source: [place] 4:30 AM [facility] REPOSITORY TYPE CODE TESTS RESULT OUT OF REFERENCE UNITS RANGE LAB MG 1.7-2.3 mg/dL Low Magnesium 1.6 Performed By: #### MG1, PHOS, BMP, RETIC, PRCFUN, PROTSI, PRSCLT #### [facility] [address] [place], [place] [address] PHOSPHORUS Collected: 11/07/2017 Status: F Source: [place] 4:30 AM [facility] REPOSITORY TYPE CODE TESTS RESULT OUT OF REFERENCE UNITS RANGE LAB PHOS 2.7-4.8 mg/dL Phosphorus 3.8 Performed By: #### MG1, PHOS, BMP, RETIC, PRCFUN, PROTSI, PRSCLT #### [facility] [address] [place] [address] BASIC METABOLIC PANL Collected: 11/07/2017 Status: F Source: [place] 4:30 AM [facility] REPOSITORY TYPE CODE TESTS RESULT OUT OF REFERENCE UNITS RANGE LAB GLU 74-99 mg/dL High Glucose 142 Result Comment: The [place] [employer] (ADA) provides guidance for cutoff [...] Standards of Medical Care in Diabetes 2016, [place] [employer]. Diabetes Care. 2016.39(Suppl 1). LAB [...] PHOS, BMP, RETIC, PRCFUN, PROTSI, PRSCLT #### [facility] [address] [place] [id number] RETICULOCYTE Collected: 11/07/2017 Status: F Source: [place] 4:30 [facility] REPOSITORY TYPE CODE TESTS RESULT OUT OF RANGE REFERENCE UNITS LAB RETC 0.4-2.0 % High Retic% 11.0 Result Comment: Results verified by dilution. LAB ABRET 0.0180-0.1000 M/uL High Abs Retic 0.328 Result Comment: Results verified by dilution. Performed By: #### MG1, PHOS, BMP, RETIC, PRCFUN, PROTSI, PRSCLT #### [facility] [address] [place] [address] PROTEIN C FUNCTIONAL Collected: 11/07/2017 Status: F Source: [place] 4:30 [facility] REPOSITORY TYPE CODE TESTS RESULT OUT OF REFERENCE UNITS RANGE LAB PRCFUN 76-147 % Protein High C Functional 167 Result Comment: The protein C level is elevated. This may be seen with an acute phase response, but is of doubtful clinical significance. Performed By: #### MG1, PHOS, BMP, RETIC, PRCFUN, PROTSI, PRSCLT #### [facility] [address] [place] [id number] PROT S IMMUNOLOGIC Collected: 11/07/2017 Status: F Source: [place] [address]:30 AM [facility] REPOSITORY TYPE CODE TESTS RESULT OUT OF REFERENCE UNITS RANGE LAB TPROTS 74-156 % Total Protein 84 S LAB FPROTS 55-148 % Free Protein 99 S Performed By: #### MG1, PHOS, BMP, RETIC, PRCFUN, PROTSI, PRSCLT #### [facility] [address] [place], [place] [address] PROTEIN S CLOTTABLE Collected: 11/07/2017 Status: F Source: [place] 4:30 AM [facility] REPOSITORY TYPE CODE TESTS RESULT OUT OF REFERENCE UNITS RANGE LAB PRSCLT 59-131 % Protein S 75 Clottable Performed By: #### MG1, PHOS, BMP, RETIC, PRCFUN, PROTSI, PRSCLT #### [facility] [address] [place], [place] [address] TYPE AND SCREEN Collected: 11/07/2017 Status: F Source: [place] 4:30 AM [facility] REPOSITORY TYPE CODE TESTS RESULT OUT OF REFERENCE UNITS RANGE LAB %ABR B ABO/RH(D) POSITIVE LAB % Antibody POS Screen Performed By: #### TSCR #### [facility] [address] [place], [place] [address] CBC Collected: 11/07/2017 Status: F Source: [place] 4:30 AM [facility] REPOSITORY TYPE CODE TESTS RESULT OUT [...] Absolute nRBC Performed By: #### CBC #### [facility] [address], [place] [id number] CBC Collected: 11/06/2017 Status: F Source: [place] 8:03 PM [facility] REPOSITORY TYPE CODE TESTS RESULT OUT [...] Absolute nRBC Performed By: #### CBC #### [facility] [address], [place] [id number] NURSING PROG Observed: 11/06/2017 Status: COMPLETED Source: [place] 7:33 PM [facility] REPOSITORY HNO ID: [id number] Author: Grace SanchezRn) JEFF Deal Service: (none) Author Type: Registered Nurse Type: Nursing Progress Note Filed: 11/06/2017 7:36 PM Note Text: Nursing Progress Note Patient Name: Paloma Cannon Patient Location: H080 015/H080-16 Daily Note:Per nursing communication, drainage bag removed [...] CASE MANAGEM Observed: 11/06/2017 Status: COMPLETED Source: [place] 3:30 PM [facility] REPOSITORY HNO ID: [id number] Author: Jacinta Aguilar (Rn) JEFF Olmedo Service: [...] Preference: pt would like to discuss w AR liason Needs Prior to Discharge: Accepting Facility;Discharge Transportation;Facility or Agency Choices;Insurance Authorization : Dc date TBD. Skilled AR, AR referral sent to [facility] for information to assist pt w deciding AR location. 2L NC via wiseri. Current on 2LO2/nc. Pt will be at bedside 11/08 between 9an and 3p to participate in dc planning. . . Apheresis, IHD, pain, leg numbness/weakness improving. CM to continue to follow SIGNATURE: Jacinta Olmedo RN PATIENT NAME: Paloma Cannon DATE: November 06, 2017 TIME: 3:30 PM PAGER/CONTACT #: [phone] CBC Collected: 11/06/2017 Status: F Source: [place] 10:12 AM [facility] REPOSITORY TYPE CODE TESTS RESULT OUT [...] nRBC 0.02 Performed By: #### CBC #### [facility] [address] [place], [place] [address] CONSULT PROG Observed: 11/06/2017 Status: COMPLETED Source: [place] 9:49 AM [facility] [place] REPOSITORY HNO ID: [id number] Author: Aj Keenan Service: Hematology Author Type: Physician Type: Consult Progress Note Filed: 11/06/2017 7:39 PM Note Text: ? [facility] DEPARTMENT OF HEMATOLOGIC ONCOLOGY AND BLOOD DISORDERS [...] IR guided intervention (initially on 10/23 at [facility] and 10/26 here at [facility]. ? # Antiphospholipid antibody syndrome Extensive left [...] MD Fellow, Hematology and Medical Oncology Pager: [phone] STAFF ADDENDUM: I have reviewed the history, [...] hemolysis and [place] [id number] CONSULT PROG Observed: 11/06/2017 Status: COMPLETED Source: [place] 9:04 AM [facility] REPOSITORY HNO ID: [id number] Author: Domingo (Frida Fleming Service: Radiology Author Type: Resident Type: [...] with IR staff Dr Aranda. Domingo [place] [id number] CONSULT PROG Observed: 11/06/2017 Status: COMPLETED Source: [place] 9:04 AM [facility] REPOSITORY HNO ID: [id number] Author: Cheri Cuba Service: Nephrology Author Type: [...] 3 sec to renal vein thrombosis requiring MASONRY CONTRACTOR ADMINISTRATOR since 10/26/2017 -Baseline Cr 1.2 to 1.5 [...] for eGFR <10 mL/min ? Consent for MASONRY CONTRACTOR ADMINISTRATOR: MASONRY CONTRACTOR ADMINISTRATOR initiation date: 10/26/17 Consent obtained and in EMR. Cheri Cuba MD/Staff November 06, 2017 9:06 AM PAGER # [phone] Department of Nephrology and Hypertension PROGRESS Observed: 11/06/2017 Status: COMPLETED Source: [place] 6:03 AM [facility] REPOSITORY O ID: [id number] Author: Edson Mohr Service: General Internal Medicine Author Type: Physician Type: Progress Notes Filed: 11/06/2017 3:11 PM Note Text: DEPARTMENT OF INTERNAL MEDICINE: PROGRESS NOTE PRIMARY TEAM: RAF Terry Weekdays 7 am to 5 pm/Weekend 7 am to 3 pm: Page [phone] Weekdays 5 pm to 7 am/Weekend 3 pm to 7 am: Anode Adjuster Pager [phone] PATIENT NAME: Paloma Cannon BRIEF PLAN FOR [...] IR emobolization of left L3 artery at [facility] on 10/23 IR embolization of left L2 [...] is following - CAPRICE (acute kidney injury) ([facility]) CAPRICE on CKD III, 2/2 contrast, now requiring dialysis First HD at [facility] on 10/25 with tunneled dialysis catheter placement [...] this morning, access site for embolization at [facility], no erythema or induration appreciated on exam, exquisitely TTP Groin study showed no signs of PSA, known AV fistula visualized with retrograde flow, vascular med aware- no further recs 10/28: pain less severe, no physical exam findings Repeat Leg DVT shows no pseudoaneurysm Likely due to nerve compression/RP hematoma causing compressive symtpoms S/p R groin bag placed at [facility] on 10/24 s/p L [facility]in [facility] during embolization on 10/26 Plan: - Pain management-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 [facility] - Will continue to wean dilaudid as pt tolerates, currently kept her on Dilaudid 0.4 mg q3h PRN for pain SIGNATURE: Dayton Acuna MD, PGY2 PAGER: [phone] DATE of SERVICE: November 06, 2017 TIME of SERVICE: 6:04 AM This note is not final until signed by a Staff Physician [facility] STAFF PHYSICIAN NOTE OF PERSONAL INVOLVEMENT [...] by PE/DVT, DAH , HIT was on termite control technician coumadin, cytoxan , prednisone and pheresis. Recent admission for DAH. Discharged on fondaparinux 7.5mg daily 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 requiring MASONRY CONTRACTOR ADMINISTRATOR , volume overload thrombocytopenia, persistent anemia and Moraxella Pneumonia Stable persistent L sided abdominal pain PLAN: as delineated above Unable to anticoagulate at this time ok to remove R drainage bag as per IR SIGNATURE: Edson Mohr MD PAGER: [phone] DATE of SERVICE: November 06, 2017 TIME of SERVICE: 11:00 am CBC Collected: 11/06/2017 Status: F Source: [place] 5:35 AM [facility] [place] REPOSITORY TYPE CODE TESTS RESULT OUT OF [...] MG1, PHOS, IRON, BMP, HAPTO, LD6 #### [place] [address] MAGNESIUM Collected: 11/06/2017 Status: F Source: [place] 5:35 AM [facility] REPOSITORY TYPE CODE TESTS RESULT OUT OF REFERENCE UNITS RANGE LAB MG 1.7-2.3 mg/dL Magnesium 1.7 Performed By: #### CBC, MG1, PHOS, IRON, BMP, HAPTO, LD6 #### [facility] [address] [place] [address] PHOSPHORUS Collected: 11/06/2017 Status: F Source: [place] 5:35 AM [facility] REPOSITORY TYPE CODE TESTS RESULT OUT OF REFERENCE UNITS RANGE LAB PHOS 2.7-4.8 mg/dL Phosphorus 3.3 Performed By: #### CBC, MG1, PHOS, IRON, BMP, HAPTO, LD6 #### [facility] [address] [place] [address] IRON AND TIBC Collected: 11/06/2017 Status: F Source: [place] 5:35 AM [facility] REPOSITORY TYPE CODE TESTS RESULT OUT OF REFERENCE UNITS RANGE LAB IRN 41-186 ug/dL Iron 90 LAB TIBC 232-386 ug/dL TIBC 301 LAB SAT 15-57 % Transferrin Saturatn 30 Performed By: #### CBC, MG1, PHOS, IRON, BMP, HAPTO, LD6 #### [facility] [address] [place] [id number] BASIC METABOLIC PANL Collected: 11/06/2017 Status: F Source: [place] 5:35 AM [facility] REPOSITORY TYPE CODE TESTS RESULT OUT OF REFERENCE UNITS RANGE LAB GLU 74-99 mg/dL High Glucose 107 Result Comment: The [place] Diabetes Association (ADA) provides guidance for cutoff [...] Standards of Medical Care in Diabetes 2016, [place] [employer]. Diabetes Care. 2016.39(Suppl 1). LAB [...] MG1, PHOS, IRON, BMP, HAPTO, LD6 #### [place] [address] [place] [address] HAPTOGLOBIN Collected: 11/06/2017 Status: F Source: [place] 5:35 AM [facility] REPOSITORY TYPE CODE TESTS RESULT OUT OF REFERENCE UNITS RANGE LAB HAPTO 31-238 mg/dL Low Haptoglobin <10 Performed By: #### CBC, MG1, PHOS, IRON, BMP, HAPTO, LD6 #### [place] [id number] LD Collected: 11/06/2017 Status: F Source: [facility] 5:35 AM [facility] REPOSITORY TYPE CODE TESTS RESULT OUT OF RANGE REFERENCE UNITS LAB LD 135-214 U/L High LD 1285 Performed By: #### CBC, MG1, PHOS, IRON, BMP, HAPTO, LD6 #### [place] [address] CBC Collected: 11/06/2017 Status: F Source: [place] 1:30 AM [facility] REPOSITORY TYPE CODE TESTS RESULT OUT [...] Absolute nRBC Performed By: #### CBC #### [place] [address] NURSING PROG Observed: 11/05/2017 Status: COMPLETED Source: [place] 10:22 PM [facility] REPOSITORY HNO ID: [id number] Author: Daria (Rn) JEFF Wagner Service: (none) Author Type: Registered Nurse Type: Nursing Progress Note Filed: 11/06/2017 6:57 AM Note Text: Nursing Progress Note Patient Name: Paloma Cannon Patient Location: [place] [address] Daily Note: 2200 - Potassium IV to [...] RN CBC Collected: 11/05/2017 Status: F Source: [place] 7:08 PM [facility] REPOSITORY TYPE CODE TESTS RESULT OUT [...] nRBC Performed By: #### CBC, BMP #### [facility] [address] [place], [place] [address] BASIC METABOLIC PANL Collected: 11/05/2017 Status: F Source: [place] 7:08 PM [facility] REPOSITORY TYPE CODE TESTS RESULT OUT OF REFERENCE UNITS RANGE LAB GLU 74-99 mg/dL High Glucose 195 Result Comment: The [place] Diabetes Association (ADA) provides guidance for cutoff [...] Standards of Medical Care in Diabetes 2016, [place] [employer]. Diabetes Care. 2016.39(Suppl 1). LAB [...] GFR. Performed By: #### CBC, BMP #### [facility] [address] [place], [place] [address] NURSING PROG Observed: 11/05/2017 Status: COMPLETED Source: [place] 5:14 PM [facility] REPOSITORY HNO ID: [id number] Author: Kenisha Ro RN Service: Nursing Author Type: Registered Nurse Type: Nursing Progress Note Filed: 11/05/2017 6:55 PM Note Text: Nursing Progress Note Patient Name: Paloma Cannon [address] Daily Note: K+ 3.3 today, 2 bags IV potassium given. 1 unit platelets given, premedicated with benadryl and solucortef, no s/s of reaction. Legs wrapped per order. Satting wnl on 2L NC. This note was completed by: Kenisha Ro RN CONSULT PROG Observed: 11/05/2017 Status: COMPLETED Source: [place] 12:19 PM [facility] REPOSITORY HNO ID: [id number] Author: Michelle Randhawa (Fel) Service: Hematology/Oncology Author Type: Fellow Type: Consult Progress Note Filed: 11/05/2017 12:24 PM Note Text: ? [facility] DEPARTMENT OF HEMATOLOGIC ONCOLOGY AND BLOOD DISORDERS ? Hematology Consult Follow Up ? ? Patient name: Paloma Cannon : 1990 Date of Service: November 05, 2017 Supervising attending physician: Dr. Keenan ? INTERVAL HISTORY: Transferred from MICU to [facility] overnight Complains about severe pain in [...] IR guided intervention (initially on 10/23 at [facility] and 10/26 here at [facility]. ? # Antiphospholipid antibody syndrome Extensive left [...] Randhawa MD Hematology and Oncology Fellow Pager: [phone] November 05, 2017 12:24 PM PROGRESS Observed: 11/05/2017 Status: COMPLETED Source: [place] 11:34 AM [facility] REPOSITORY HNO ID: [id number] Author: Maria G Junior Service: General Internal Medicine Author Type: Resident Type: Progress Notes Filed: 11/05/2017 11:44 AM Note Text: Attestation signed by Krysta Lopez at 11/05/2017 12:35 PM [facility] STAFF PHYSICIAN NOTE OF PERSONAL INVOLVEMENT [...] 11/05/2017 TIME of SERVICE: 12:33 PM ? [facility] Raf Terry Progress Note PATIENT NAME: [...] the last 168 hours. BMP: Recent Labs 11/05/17 0522 11/04/17 0510 11/02/17 2340 11/02/17 0120 11/01/17 0302 10/30/17 [...] 1.18* 1.89* 1.39* 1.25* CHEM: Recent Labs 11/05/17 0522 11/04/17 0510 11/02/17 2340 11/02/17 0120 11/01/17 0302 10/30/17 2338 10/29/17 2335 ALB -- -- 3.4* 3.6* 3.5* -- -- TPROT -- -- 6.0* 6.0* 5.7* -- -- CA 8.4* 8.6 8.4* 8.4* 8.1* 9.0 9.3 MG 1.7 1.9 1.8 2.0 1.7 2.0 2.2 HEPATIC: Recent Labs 11/04/17 0510 11/02/17 2340 11/02/17 0120 11/01/17 0302 ALKPHOS -- 79 75 70 [...] IR emobolization of left L3 artery at [facility] on 10/23 IR embolization of left L2 [...] contrast, now requiring dialysis First HD at [facility] on 10/25 with tunneled dialysis catheter placement [...] this morning, access site for embolization at [facility], no erythema or induration appreciated on exam, exquisitely TTP Groin study showed no signs of PSA, known AV fistula visualized with retrograde flow, vascular med aware- no further recs 10/28: pain less severe, no physical exam findings Repeat Leg DVT shows no pseudoaneurysm Likely due to nerve compression/RP hematoma causing compressive symtpoms S/p R groin drain placed at [facility] on 10/24 s/p L groin drain [facility] during embolization on 10/26 Plan: - Pain management-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 [facility] - Will continue to wean dilaudid as pt tolerates, currently kept her on Dilaudid 0.4 mg q3h PRN for pain - IR consult for drain evaluation and removal on 11/05 # VTE PPx: IPCs # Diet: Regular # Dispo: Pending clinical course SIGNATURE: Maria G Junior DO PATIENT NAME: Paloma Cannon DATE: November 05, 2017 TIME: 11:34 AM Pager: [phone] Note is not final until addended or cosigned by staff. CBC Collected: 11/05/2017 Status: F Source: [place] 5:22 AM [facility] REPOSITORY TYPE CODE TESTS RESULT [...] By: #### CBC, MG1, PHOS, BMP #### [facility] [address] [place] [address] MAGNESIUM Collected: 11/05/2017 Status: F Source: [place] 5:22 AM [facility] REPOSITORY TYPE CODE TESTS RESULT OUT OF REFERENCE UNITS RANGE LAB MG 1.7-2.3 mg/dL Magnesium 1.7 Performed By: #### CBC, MG1, PHOS, BMP #### [facility] [address] [place] [address] PHOSPHORUS Collected: 11/05/2017 Status: F Source: [place] 5:22 AM [facility] REPOSITORY TYPE CODE TESTS RESULT OUT OF REFERENCE UNITS RANGE LAB PHOS 2.7-4.8 mg/dL Phosphorus 3.4 Performed By: #### CBC, MG1, PHOS, BMP #### [facility] [address] [place] [address] BASIC METABOLIC PANL Collected: 11/05/2017 Status: F Source: [place] 5:22 AM [facility] REPOSITORY TYPE CODE TESTS RESULT OUT OF REFERENCE UNITS RANGE LAB GLU 74-99 mg/dL High Glucose 100 Result Comment: The [place] Diabetes [employer] (ADA) provides guidance for cutoff [...] Standards of Medical Care in Diabetes 2016, [place] [employer]. Diabetes Care. 2016.39(Suppl 1). LAB [...] By: #### CBC, MG1, PHOS, BMP #### [facility] [address] [place], [place] [address] CBC Collected: 11/04/2017 Status: F Source: [place] 10:45 PM [facility] REPOSITORY TYPE CODE TESTS RESULT [...] Absolute nRBC Performed By: #### CBC #### [facility] [address] [place], [place] [address] CONSULT PROG Observed: 11/04/2017 Status: COMPLETED Source: [place] 2:30 PM [facility] REPOSITORY HNO ID: [id number] Author: Luz Maria Wolfe Service: Hematology Author Type: Physician Type: Consult Progress Note Filed: 11/04/2017 3:11 PM Note Text: ? [facility] DEPARTMENT OF HEMATOLOGIC ONCOLOGY AND BLOOD DISORDERS ? Hematology Consult Follow Up ? ? Patient name: Paloma Cannon : 1990 Date of Service: 11/04/2017 Supervising attending physician: Dr. Wolfe ? INTERVAL HISTORY: Transferred from MICU to [facility] overnight Complains about severe pain in [...] IR guided intervention (initially on 10/23 at [facility] and 10/26 here at [facility]. ? # Antiphospholipid antibody syndrome Extensive left [...] MD Fellow, Hematology and Medical Oncology Pager: [phone] Addendum: I have repeated the pertinent features of the history and examination and reviewed appropriate available diagnostics in this patient. I am in agreement with the plan as stated above. I discussed the above plan with the patient and I have answered questions asked by the patient. Pt transferred to [facility] yesterday. Continues on ultrafiltration for fluid removal and renal team evaluating for further MASONRY CONTRACTOR ADMINISTRATOR on Monday. Hb has stayed stable since [...] PM CBC Collected: 11/04/2017 Status: F Source: [place] 12:54 PM [facility] REPOSITORY TYPE CODE TESTS RESULT OUT [...] Absolute nRBC Performed By: #### CBC #### [facility] [address] [place], [place] [address] DEGRAD PRODUCT Collected: 11/04/2017 Status: F Source: [place] 5:10 AM [facility] REPOSITORY TYPE CODE TESTS RESULT OUT OF REFERENCE UNITS RANGE LAB FDP <10 ug/ml High Degrad Product >40 Performed By: #### FDP, DDMER, FIBCT, MG1, PHOS, BMP, HAPTO, BILIFR, LD6, CBC #### [place] [address] [place] [address] D DIMER Collected: 11/04/2017 Status: F Source: [place] 5:10 AM [facility] REPOSITORY TYPE CODE TESTS RESULT OUT [...] PHOS, BMP, HAPTO, BILIFR, LD6, CBC #### [place] [address] FIBRINOGEN Collected: 11/04/2017 Status: F Source: [place] 5:10 AM [facility] REPOSITORY TYPE CODE TESTS RESULT OUT OF REFERENCE UNITS RANGE LAB FIBCT 200-400 mg/dL Fibrinogen 224 Performed By: #### FDP, DDMER, FIBCT, MG1, PHOS, BMP, HAPTO, BILIFR, LD6, CBC #### [facility] [place] [address] MAGNESIUM Collected: 11/04/2017 Status: F Source: [place] 5:10 AM [facility] REPOSITORY TYPE CODE TESTS RESULT OUT OF REFERENCE UNITS RANGE LAB MG 1.7-2.3 mg/dL Magnesium 1.9 Performed By: #### FDP, DDMER, FIBCT, MG1, PHOS, BMP, HAPTO, BILIFR, LD6, CBC #### [facility] [address] [place] [address] PHOSPHORUS Collected: 11/04/2017 Status: F Source: [place] 5:10 AM [facility] REPOSITORY TYPE CODE TESTS RESULT OUT OF REFERENCE UNITS RANGE LAB PHOS 2.7-4.8 mg/dL Phosphorus 3.2 Performed By: #### FDP, DDMER, FIBCT, MG1, PHOS, BMP, HAPTO, BILIFR, LD6, CBC #### [facility] [address] [place] [id number] BASIC METABOLIC PANL Collected: 11/04/2017 Status: F Source: [place] 5:10 AM [facility] REPOSITORY TYPE CODE TESTS RESULT OUT OF REFERENCE UNITS RANGE LAB GLU 74-99 mg/dL High Glucose 143 Result Comment: The [place] Diabetes Association (ADA) provides guidance for cutoff [...] Standards of Medical Care in Diabetes 2016, [place] [employer]. Diabetes Care. 2016.39(Suppl 1). LAB [...] PHOS, BMP, HAPTO, BILIFR, LD6, CBC #### [facility] [address] [place] [address] HAPTOGLOBIN Collected: 11/04/2017 Status: F Source: [place] 5:10 AM [facility] REPOSITORY TYPE CODE TESTS RESULT OUT OF REFERENCE UNITS RANGE LAB HAPTO 31-238 mg/dL Low Haptoglobin <10 Performed By: #### FDP, DDMER, FIBCT, MG1, PHOS, BMP, HAPTO, BILIFR, LD6, CBC #### [place] [address] BILIRUBIN,FRACTION Collected: Status: F Source: [place] 11/04/2017 5:10 AM [facility] REPOSITORY TYPE CODE TESTS RESULT OUT OF REFERENCE UNITS RANGE LAB TBILI 0.0-1.5 mg/dL 1.3 Bilirubin, Total LAB BILU 0.0-1.1 mg/dL 0.9 Bilirubin,Un conjug LAB CBIL <0.2 mg/dL High 0.4 Bilirubin,Co njugated Performed By: #### FDP, DDMER, FIBCT, MG1, PHOS, BMP, HAPTO, BILIFR, LD6, CBC #### [facility] [place] [address] LD Collected: 11/04/2017 Status: F Source: [facility] 5:10 AM [facility] REPOSITORY TYPE CODE TESTS RESULT OUT OF RANGE REFERENCE UNITS LAB LD 135-214 U/L High LD 985 Performed By: #### FDP, DDMER, FIBCT, MG1, PHOS, BMP, HAPTO, BILIFR, LD6, CBC #### [facility] [place] [id number] CBC Collected: 11/04/2017 Status: F Source: [place] 5:10 AM [facility] REPOSITORY TYPE CODE TESTS RESULT OUT [...] PHOS, BMP, HAPTO, BILIFR, LD6, CBC #### [facility] [address] [place] [address] TYPE AND SCREEN Collected: 11/04/2017 Status: F Source: [place] 5:10 AM [facility] REPOSITORY TYPE CODE TESTS RESULT OUT OF REFERENCE UNITS RANGE LAB %ABR B ABO/RH(D) POSITIVE LAB % Antibody POS Screen Performed By: #### TSCR #### [facility] [address] [place] [address] PROGRESS Observed: 11/04/2017 Status: COMPLETED Source: [place] 4:22 AM [facility] REPOSITORY HNO ID: [id number] Author: Downtime Note Service: (none) Author Type: (none) Type: Progress Notes Filed: 11/04/2017 4:26 AM Note Text: Epic Scheduled Downtime: 11/03/2017 11:34:32 PM to 11/04/2017 4:17:42 AM CBC Collected: 11/03/2017 Status: F Source: [place] 11:28 PM [facility] REPOSITORY TYPE CODE TESTS RESULT OUT [...] Absolute nRBC Performed By: #### CBC #### [facility] [address] [place] [address] NURSING PROG Observed: 11/03/2017 Status: COMPLETED Source: [place] 10:30 PM [facility] REPOSITORY HNO ID: [id number] Author: Duane (Rn) JEFF Enriquez Service: (none) Author Type: Registered Nurse Type: Nursing Progress Note Filed: 11/04/2017 4:59 AM Note Text: 0.4 mg Dilaudid wasted with Jose Gaines RN. NURSING PROG Observed: 11/03/2017 Status: COMPLETED Source: [place] 9:48 PM [facility] REPOSITORY HNO ID: [id number] Author: Maritza SanchezRn) JEFF Figueroa Service: (none) Author Type: Registered Nurse Type: Nursing Progress Note Filed: 11/03/2017 9:48 PM Note Text: Nursing Progress Note Patient Name: Paloma Cannon Patient Location: H080 015/H080-16 Transfer Note: Patient transferred into room/unit h80-16 in stable condition. Actions taken: No futher actions taken at this time. Will continue to monitor and check with patient. This note was completed by: TAMI Moise PLAN OF CARE Observed: 11/03/2017 Status: COMPLETED Source: [place] 7:45 PM [facility] REPOSITORY HNO ID: [id number] Author: Daysi Kohli Service: Critical Care Author Type: Resident Type: Plan of Care Filed: 11/03/2017 7:46 PM Note Text: MICU patient transfer to [facility] [employer]. Patient signed out to [facility] team. Patient to go to [facility]. Daysi Kohli DO HISTORY PHYSICAL Observed: 11/03/2017 Status: COMPLETED Source: [place] 7:27 PM [facility] REPOSITORY HNO ID: [id number] Author: Adin Goldsmith Service: General Internal Medicine Author Type: Resident Type: HANDP Filed: 11/03/2017 10:45 PM Note Text: Attestation signed by Krysta Lopez at 11/04/2017 5:03 PM [facility] STAFF PHYSICIAN NOTE OF PERSONAL INVOLVEMENT [...] OF HOSPITAL MEDICINE TRANSFER OF CARE NOTE RAF NIGHT PATIENT GOING TO [employer] [facility] PATIENT NAME: Paloma Cannon LENGTH OF STAY: 9 HOSPITAL ROOM: [address]; AGE: 6 1990; 27 year old ADMITTING PHYSICIAN: Austen Choudhury DATE OF ADMISSION: 10/25/2017 11:13 PM SERVICE - [employer] SUBJECTIVE PCP: PEYTON ROGERS MD CC: RP [...] peripheral neuropathy She was recently discharged from [facility] (10/22) after her 6th episode of respiratory failure requiring mechanical ventilation, was discharged on 2L NC oxygen. During her hospitalization, she had c/o left foot numbness and pain that was managed conservatively. (She was on fondaparinaux while hospitalized and coumadin was held) On 10/23, she presented to [facility] with stabbing left sided abdominal and back pain radiating to both left arm and legs. A CT abdomen was done which showed an extensive Left retroperitoneal hemorrhage with mass effect on the left kidney, with hemorrhage along the mesentery and spleen. She was admitted to [facility] ICU as ICU was full and was [...] on 10/25. She was then transferred to [facility] on bed availability for further care. [...] on top of 7 U PRBC in [facility]. Hematology was also consulted who recommended on [...] Her pain was being controlled with dilaudid 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, now changed to iv dilaudid with PO oxycodone. She was also hypertensive and is on Amlodipine 10 mg and coreg 6.25 mg BID. On arrival to the floor, her Hb was 10K, Plt-33K, WBC-12 K Still c/o of a lot of pain in LLE with numbness, was on 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 dilaudid until this AM. Endorses cough with [...] nephrotoxic agents - DVT (deep venous thrombosis) ([facility]) - Elevated CA-125 11/30/2013 244 - Essential hypertension 10/08/2015 Stable on home medications Plan: -continue to monitor on home meds - 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 Bivalirudin to Warfarin bridging - HIT (heparin-induced thrombocytopenia) ([facility]) - Nontoxic multinodular goiter - Obese [...] neuropathy, post-thrombotic syndrome, and was transferred from [facility] for ongoing L RP bleeding s/p L2,L3 embolization X2, 16 U PRBC total, undergoing dialysis due to volume overload and had 1 session of Apharesis per hematology. She was also found to have Moraxella catarrhalis pneumonia and was treated with Ceftriaxone 10/27-11/03 (completed 7 day course). Major Interval Events: 10/26: Transferred from [facility]. Hgb down to 5.5. CTA showing active [...] IR emobolization of left L3 artery at [facility] on 10/23 IR embolization of left L2 [...] per hematology-following - CAPRICE (acute kidney injury) ([facility]) CAPRICE on CKD III, 2/ contrast, now requiring dialysis First HD at [facility] on 10/25 with tunneled dialysis catheter placement [...] this morning, access site for embolization at [facility], no erythema or induration appreciated on exam, exquisitely TTP Groin study showed no signs of PSA, known AV fistula visualized with retrograde flow, vascular med aware- no further recs 10/28: pain less severe, no physical exam findings Repeat Leg DVT shows no pseudoaneurysm Likely due to nerve compression/RP hematoma causing compressive symtpoms Plan: Pain management-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 today Wean of dilaudid slowly, currently kept [...] 03, 2017 TIME: 7:30 PM PAGER/CONTACT #: [phone] These recommendations are not final until staffed by attending provider. CBC Collected: 11/03/2017 Status: F Source: [place] 5:25 PM [facility] REPOSITORY TYPE CODE TESTS RESULT [...] Absolute nRBC Performed By: #### CBC #### [facility] [address] [address] CONSULT PROG Observed: 11/03/2017 Status: COMPLETED Source: [place] 4:06 PM [facility] REPOSITORY HNO ID: [id number] Author: Luz Maria Wolfe Service: Hematology Author Type: Physician Type: Consult Progress Note Filed: 11/03/2017 5:14 PM Note Text: ? [facility] DEPARTMENT OF HEMATOLOGIC ONCOLOGY AND BLOOD DISORDERS [...] IR guided intervention (initially on 10/23 at [facility] and 10/26 here at [facility]. ? # Antiphospholipid antibody syndrome Extensive left [...] MD Fellow, Hematology and Medical Oncology Pager: [phone] Addendum: I have repeated the pertinent features [...] THERAPY NT Observed: 11/03/2017 Status: COMPLETED Source: [place] 3:47 PM [facility] REPOSITORY HNO ID: [id number] Author: Tamiko SanchezOt/LDevonte Nelson Service: Occupational Therapy Author Type: Occupational Therapist Type: Therapy (PT/OT/Speech/Resp) Filed: 11/03/2017 3:47 PM Note Text: OCCUPATIONAL THERAPY MISSED VISIT SERVICE DATE: 11/03/2017 SERVICE TIME: 1547 to 1547 ROOM: [place] [address] Attempted Treatment. Patient not seen due to Test/Procedure, IHD at bedside, Will re-attempt as able. SIGNATURE: Tamiko Nelson OT/L PATIENT NAME: Paloma Cannon DATE: November 03, 2017 TIME: 3:47 PM PAGER/CONTACT #:[phone] THERAPY NT Observed: 11/03/2017 Status: COMPLETED Source: [place] 2:23 PM [facility] REPOSITORY HNO ID: [id number] Author: Brenda (Pt) Kt Service: Physical Therapy Author Type: Physical Therapist Type: Therapy (PT/OT/Speech/Resp) Filed: 11/03/2017 2:24 PM Note Text: PHYSICAL THERAPY MISSED VISIT SERVICE DATE: 11/03/2017 SERVICE TIME: 1405 to 1405 ROOM: [place] [address] ([facility] MAIN (M12 Plasma)) Attempted Treatment. Patient not seen due to Another service at bedside. IHD at bedside. Will check back as able SIGNATURE: Brenda Meraz PT PATIENT NAME: Paloma Cannon DATE: November 03, 2017 TIME: 2:23 PM PAGER/CONTACT #: [phone] , CBC Collected: 11/03/2017 Status: F Source: [place] 12:43 PM [facility] REPOSITORY TYPE CODE TESTS RESULT OUT [...] Absolute nRBC Performed By: #### CBC #### [facility] [address] [address] THERAPY NT Observed: 11/03/2017 Status: COMPLETED Source: [place] 12:28 PM [facility] REPOSITORY HNO ID: [id number] Author: Tamiko (Pt) Adelaida Service: Physical Therapy Author Type: Physical Therapist Type: Therapy (PT/OT/Speech/Resp) Filed: 11/03/2017 12:36 PM Note Text: Physical Therapy Wound/Lymph Treatment SERVICE DATE: 11/03/2017 SERVICE TIME: 1105 to 1130 ROOM: [place] [address] ([facility] (M12 Plasma)) Recommended Discharge [...] Patient TREATMENT INTERVENTIONS: Interventions Provided: Manual Therapy (59511) Manual Therapy (82448) Treatment Minutes: 25 2 units Skilled Intervention: [...] 03, 2017 TIME: 12:28 PM PAGER/CONTACT #: [phone] CASE MANAGEM Observed: 11/03/2017 Status: COMPLETED Source: [place] 9:53 AM [facility] REPOSITORY HNO ID: [id number] Author: Lisseth Coto (Sw) Service: Case Management Author Type: Workday Director Type: Care Mgt Progress Note Filed: 11/03/2017 9:54 AM Note Text: CARE MANAGEMENT PROGRESS NOTE SERVICE DATE: 11/03/2017 SERVICE TIME: 9:53 AM LOS: 9 days Needs Prior to Discharge: To Be Determined Pain better controlled. Plan on RNF after dialysis today, transfuse as needed pending CBC. Plan for apheresis today. applied exercise physiologist AR. ERIKA attempted to meet with pt and discuss AR, however apheresis tech at bedside working with pt. ERIKA will attempt to follow up this afternoon. SIGNATURE: JUAN PABLO Romo PATIENT NAME: Paloma Cannon DATE: November 03, 2017 TIME: 9:53 AM PAGER/CONTACT #: [phone] PROGRESS Observed: 11/03/2017 Status: COMPLETED Source: [place] 9:27 AM [facility] REPOSITORY HNO ID: [id number] Author: Austen Choudhury Service: Critical Care Author Type: Physician Type: Progress Notes Filed: 11/03/2017 11:19 AM Note Text: SERVICE DATE: 11/03/2017 SERVICE TIME: 9:27 AM MICU PROGRESS NOTE Admission Date: 10/25/2017 Hospital Day # 9 SUBJECTIVE Interval HPI: Improved reports more movement in left leg compared to yesterday pain is somewhat better using 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 less, basal rate has been off x24 hours OBJECTIVE Vital Signs (last filed) Range in last 24h Temp: 37.6 ?C (99.7 ?F) (11/03/17 0400) Temp Min: 36.4 ?C (97.6 ?F) [...] No Data Recorded SpO2: 97 % (11/03/17 0900) SpO2 Min: 93 % Max: 100 % [...] Awake, oriented, Follows commands Infusion Medications HYDROmorphone 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 0.5 mg/mL NaCl 0.9% Last Rate: 30 [...] neuropathy, post-thrombotic syndrome, and was transferred from [facility] for ongoing L RP bleeding. Major Interval Events: 10/26: Transferred from [facility]. Hgb down to 5.5. CTA showing active [...] >30 - continue PO oxycodone, wean dilaudid 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 - Hold anticoagulation - Monitor respiratory status - IHD - apheresis today - Increase coreg - DVT scan - PT/OT - Transfer to [facility] after dialysis - Plan discussed with [...] this morning, access site for embolization at [facility], no erythema or induration appreciated on exam, [...] IR emobolization of left L3 artery at [facility] on 10/23 IR embolization of left L2 [...] contrast, now requiring dialysis First HD at [facility] on 10/25 with tunneled dialysis catheter placement [...] 03, 2017 TIME: 9:27 AM PAGER/CONTACT #: [phone] [facility] STAFF PHYSICIAN NOTE OF PERSONAL INVOLVEMENT [...] as tolerated. Continue oral analgesics to lower 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 pump.? PT ?? Patient/Family Updated:?Pt was updated. [...] ?? SIGNATURE: Austen Choudhury MD [facility] PAGER:[phone] November 03, 2017 PROCEDURE Observed: 11/03/2017 Status: COMPLETED Source: [place] 9:04 AM [facility] REPOSITORY O ID: [id number] Author: Zahra Wallace Service: Apheresis Author Type: [...] Completed by Apheresis Nurse: Angella Ortiz RN [facility] STAFF PHYSICIAN NOTE OF PERSONAL INVOLVEMENT IN CARE No blood transfusion for a few days. She feels better also. Note plans to transfer to [facility]. On dialysis and IUF alternating. I [...] MD November 03, 2017 11:03 AM Pager: [phone] CONSULT PROG Observed: 11/03/2017 Status: COMPLETED Source: [place] 8:21 AM [facility] REPOSITORY O ID: [id number] Author: Laya Peters (Fel) Service: Nephrology Author [...] tablet (BACTRIM,SEPTRA) 2 tablet ORAL/FEEDING TUBE -- predniSONE (DELTASONE) tab(s) 80 mg 80 mg ORAL/FEEDING TUBE DAILY hydrocortisone sodium succinate (PF) 100 mg injection (Solu- CORTEF) 100 mg INTRAVENOUS q 4 H PRN HYDROmorphone 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 0.5 mg/mL in NaCl 0.9% 100 mL [...] 3 sec to renal vein thrombosis requiring MASONRY CONTRACTOR ADMINISTRATOR since 10/26/2017 -Baseline Cr 1.2 to 1.5 [...] medications for eGFR <10 mL/min Consent for MASONRY CONTRACTOR ADMINISTRATOR: MASONRY CONTRACTOR ADMINISTRATOR initiation date: 10/26/17 Consent obtained and in EMR. Will discuss with staff SIGNATURE: Laya Peters MD PATIENT NAME: Paloma Cannon DATE: November 03 2017 TIME: 8:30 AM PAGER: [phone] TEACHING PHYSICIAN NOTE OF PERSONAL INVOLVEMENT IN [...] FABY, mass effect on kidney - On MASONRY CONTRACTOR ADMINISTRATOR since 10/26 ? #. Stage III CKD [...] BID. Vini Toledo MD, FASN - Pager [phone] November 03, 2017 @ 10:03 AM CBC Collected: 11/03/2017 Status: F Source: [place] 6:35 AM [facility] [place] REPOSITORY TYPE CODE TESTS RESULT OUT OF [...] Absolute nRBC Performed By: #### CBC #### [facility] [address] [place], [place] [address] COMP METABOLIC PANEL Collected: 11/02/2017 Status: F Source: [place] 11:40 PM [facility] REPOSITORY TYPE CODE TESTS RESULT [...] mg/dL Glucose High 124 Result Comment: The [place] [employer] (ADA) provides guidance for cutoff [...] Standards of Medical Care in Diabetes 2016, [place] [employer]. Diabetes Care. 2016.39(Suppl 1). LAB [...] By: #### CMP, MG1, PHOS, CBC #### [facility] [address] [address] MAGNESIUM Collected: 11/02/2017 Status: F Source: [place] 11:40 [facility] REPOSITORY TYPE CODE TESTS RESULT OUT OF REFERENCE UNITS RANGE LAB MG 1.7-2.3 mg/dL Magnesium 1.8 Performed By: #### CMP, MG1, PHOS, CBC #### [facility] [address] [address] PHOSPHORUS Collected: 11/02/2017 Status: F Source: [place] 11:40 [facility] REPOSITORY TYPE CODE TESTS RESULT OUT OF REFERENCE UNITS RANGE LAB PHOS 2.7-4.8 mg/dL Phosphorus 3.1 Performed By: #### CMP, MG1, PHOS, CBC #### [facility] [address] [address] CBC Collected: 11/02/2017 Status: F Source: [place] 11:40 [facility] REPOSITORY TYPE CODE TESTS RESULT [...] By: #### CMP, MG1, PHOS, CBC #### [facility] [address] [place], [place] [address] CBC Collected: 11/02/2017 Status: F Source: [place] 6:25 PM [facility] REPOSITORY TYPE CODE TESTS RESULT OUT [...] Absolute nRBC Performed By: #### CBC #### [facility] [address] [place], [place] [address] ALLIED HEALTH Observed: 11/02/2017 Status: COMPLETED Source: [place] 5:07 PM [facility] REPOSITORY HNO ID: [id number] Author: Negrito Kelley (Therapist) Miranda Service: Art [...] 02, 2017 TIME: 5:08 PM PAGER/CONTACT #: [phone] CONSULT PROG Observed: 11/02/2017 Status: COMPLETED Source: [place] 2:41 PM [facility] REPOSITORY HNO ID: [id number] Author: Aj Keenan Service: Hematology Author Type: Physician Type: Consult Progress Note Filed: 11/02/2017 3:45 PM Note Text: ? [facility] DEPARTMENT OF HEMATOLOGIC ONCOLOGY AND BLOOD DISORDERS [...] mg INTRAVENOUS q 4 H PRN HYDROmorphone 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 0.5 mg/mL in NaCl 0.9% 100 mL [...] IR guided intervention (initially on 10/23 at [facility] and 10/26 here at [facility]. ? # Antiphospholipid antibody syndrome Extensive left [...] MD Fellow, Hematology and Medical Oncology Pager: [phone] STAFF ADDENDUM: I have reviewed the history, [...] of plasma [place]. [id number] NUTRITION Observed: 11/02/2017 Status: COMPLETED Source: [place] 12:35 PM [facility] REPOSITORY HNO ID: [id number] Author: Edel Burton Quinten Guillen Service: NST-Nutrition Support Team Author Type: [...] neuropathy, post-thrombotic syndrome, and was transferred from [facility] for ongoing L RP bleeding. ? Interval [...] Since admit: (11/02) po intake varies per [facility] documentation but ate 50- 100% x 3meals [...] since admit with diuresis Last wts in [facility]: 10/13/17 : 104 kg (229 lb 4.5 [...] (257 lb 15 oz) 10/18/2016 ?114.306 kg? [place]io body weight 52.3 kg Estimated kilocalorie needs: 3114-0116?kilocalories determined by 25-30?kcal/kg ideal body weight Estimated protein needs: 78-105?grams determined by 1.5-2.0 g/kg?Clio?weight Estimated fluid needs: per MD NUTRITION FOCUSED [...] mg INTRAVENOUS q 4 H PRN HYDROmorphone 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 0.5 mg/mL in NaCl 0.9% 100 mL [...] Re-assess/15 min 3 units SIGNATURE: Edel Guillen, QUINTEN, LD, CNSC PATIENT NAME: Paloma Cannon DATE: November 02, 2017 TIME: 12:36 PM PAGER: [phone] THERAPY NT Observed: 11/02/2017 Status: COMPLETED Source: [place] 11:54 AM [facility] REPOSITORY O ID: [id number] Author: Brenda SanchezPt) Kt Service: Physical Therapy Author Type: Physical Therapist Type: Therapy (PT/OT/Speech/Resp) Filed: 11/02/2017 11:58 AM Note Text: Physical Therapy Treatment SERVICE DATE: 11/02/2017 SERVICE TIME: 1015 to 1054 ROOM: [place] [address] (VAS LAB MAIN ([facility] Vasc/Ultrasound)) Recommended Discharge Disposition: Acute Rehab Due [...] Diagnosis: Reduced mobility-other Interventions Provided: Therapeutic Activity (73605) Therapeutic Activity (28877) Treatment Minutes: 39 3 units Skilled Intervention(s):Education [...] the patient scored a 5 on the JH-HLM. Explanations are noted in [...] 02, 2017 TIME: 11:54 AM PAGER/CONTACT #: [phone] CBC Collected: 11/02/2017 Status: F Source: [place] 11:45 AM [facility] REPOSITORY TYPE CODE TESTS RESULT [...] Absolute nRBC Performed By: #### CBC #### [facility] [address] [place] [id number] PLAN OF CARE Observed: 11/02/2017 Status: COMPLETED Source: [place] 9:52 AM [facility] REPOSITORY HNO ID: [id number] Author: Christina Acuna Service: Neurology Author Type: [...] important that she receives early mobilization and [facility] PT. No further intervention. -> Please feel free to call us [phone] if patient worsens. -> Given duration of symptoms low yield for EMG at this time. Will set up outpatient EMG in 3 weeks. -> Will set up outpatient followup. -> Plan discussed with Daysi García. Christina Acuna MD PGY-4 Neurology Resident [phone] November 02, 2017 9:57 AM PROGRESS Observed: 11/02/2017 Status: COMPLETED Source: [place] 8:35 AM [facility] REPOSITORY HNO ID: [id number] Author: Austen Choudhury Service: Critical Care Author Type: Physician Type: Progress Notes Filed: 11/02/2017 10:58 AM Note Text: SERVICE DATE: 11/02/2017 SERVICE TIME: 8:35 AM MICU PROGRESS NOTE Admission Date: 10/25/2017 Hospital Day # 8 SUBJECTIVE Interval HPI: Improved OBJECTIVE Vital Signs (last filed) Range in last 24h Temp: 36.5 ?C (97.7 ?F) (11/02/17 0800) Temp Min: 36.4 ?C (97.6 ?F) Max: 36.9 ?C (98.4 ?F) Pulse: 96 (11/02/17 0800) Pulse Min: 77 Max: 113 Resp: 14 (11/02/17 08) Resp Min: 13 Max: 31 BP: 170/81 (11/02/17 0800) BP Min: 134/67 Max: 179/90 MAP Non Invasive (Mean Arterial Pressure): 116 (11/02/17 08) MAP Non Invasive (Mean Arterial Pressure) Min: 92 Max: 144 No Data Recorded SpO2: 97 % (11/02/17799) SpO2 Min: 93 % Max: 100 % Pain Score: Pt. Sleeping (Do Not Use With 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 Meds) (11/02/17 08) Fluid Balance: Intake/Output Summary (Last 24 hours) at 11/02/17 0659 Last data filed at 11/02/17599 Gross per 24 hour Intake 1602 ml Output 3940 ml Net -2338 ml Last Weight: 101.3 kg (223 lb 5.2 oz) (11/02/17 06) Admit Weight: 112.2 kg (247 lb [...] and Moving all extremities Infusion Medications HYDROmorphone 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 0.5 mg/mL NaCl 0.9% Last Rate: 30 [...] neuropathy, post-thrombotic syndrome, and was transferred from [facility] for ongoing L RP bleeding. Major Interval Events: 10/26: Transferred from [facility]. Hgb down to 5.5. CTA showing active [...] >30 - continue PO oxycodone, wean off 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 pump - Hold anticoagulation - Monitor respiratory [...] this morning, access site for embolization at [facility], no erythema or induration appreciated on exam, [...] IR emobolization of left L3 artery at [facility] on 10/23 IR embolization of left L2 [...] from 10/13-10/22 for it, follows with Dr. Parambil PLAN: - Decrease cyclophosphamide to 75mg daily [...] contrast, now requiring dialysis First HD at [facility] on 10/25 with tunneled dialysis catheter placement [...] ICU Team and RN SIGNATURE: Daysi García APRN.ELLIOTT PATIENT NAME: Paloma Cannon DATE: November 02, 2017 TIME: 8:35 AM PAGER/CONTACT #: [phone] [facility] STAFF PHYSICIAN NOTE OF PERSONAL INVOLVEMENT [...] s/p IVC filter. Persistent abdominal pain on 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 pump. On 2 L/min of O2. Moraxella [...] as tolerated. Continue oral analgesics to lower 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 pump. Pending final interpretation of peripheral blood [...] ?? SIGNATURE: Austen Choudhury MD [facility] PAGER:[phone] November 02, 2017 CONSULT PROG Observed: 11/02/2017 Status: COMPLETED Source: [place] 7:30 AM [facility] REPOSITORY [facility] ID: [id number] Author: Vini Toledo MD Service: Nephrology Author [...] mg INTRAVENOUS q 4 H PRN HYDROmorphone 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 0.5 mg/mL in NaCl 0.9% 100 mL [...] anuric CAPRICE on CKD stage 3 requiring MASONRY CONTRACTOR ADMINISTRATOR since 10/26/2017 Baseline Cr 1.2 to 1.5 [...] of 2 to 2.5L -Will assess for MASONRY CONTRACTOR ADMINISTRATOR needs on a daily basis -Next treatment on Monday - Strict I/O's - Renal diet - Dose medications for eGFR <10 mL/min Consent for MASONRY CONTRACTOR ADMINISTRATOR: MASONRY CONTRACTOR ADMINISTRATOR initiation date: 10/26/17 Consent obtained and in EMR. Will discuss with staff SIGNATURE: Laya Peters MD PATIENT NAME: Paloma Cannon DATE: November 02, 2017 TIME: 7:37 AM PAGER: [phone] TEACHING PHYSICIAN NOTE OF PERSONAL INVOLVEMENT IN [...] dialysis/IUF. Vini Toledo MD, FASN - Pager [phone] November 02, 2017 @ 7:59 AM CBC Collected: 11/02/2017 Status: F Source: [place] 6:20 AM [facility] REPOSITORY TYPE CODE TESTS RESULT [...] nRBC 0.23 Performed By: #### CBC #### [facility] [address] [place], [place] [address] CBC Collected: 11/02/2017 Status: F Source: [place] 1:20 AM [facility] REPOSITORY TYPE CODE TESTS RESULT OUT [...] By: #### CBC, CMP, MG1, PHOS #### [facility] [address] [place], [place] [address] COMP METABOLIC PANEL Collected: 11/02/2017 Status: F Source: [place] 1:20 AM [facility] REPOSITORY TYPE CODE TESTS RESULT OUT [...] 74-99 mg/dL Glucose 93 Result Comment: The [place] [employer] (ADA) provides guidance for cutoff [...] Standards of Medical Care in Diabetes 2016, [place] [employer]. Diabetes Care. 2016.39(Suppl 1). LAB [...] By: #### CBC, CMP, MG1, PHOS #### [facility] [address] [place], [place] [address] MAGNESIUM Collected: 11/02/2017 Status: F Source: [place] 1:20 AM [facility] REPOSITORY TYPE CODE TESTS RESULT OUT OF REFERENCE UNITS RANGE LAB MG 1.7-2.3 mg/dL Magnesium 2.0 Performed By: #### CBC, CMP, MG1, PHOS #### [facility] [address] [place], [place] [address] PHOSPHORUS Collected: 11/02/2017 Status: F Source: [place] 1:20 AM [facility] REPOSITORY TYPE CODE TESTS RESULT OUT OF REFERENCE UNITS RANGE LAB PHOS 2.7-4.8 mg/dL Low Phosphorus 2.1 Performed By: #### CBC, CMP, MG1, PHOS #### [facility] [address] [place], [place] [address] CBC Collected: 11/01/2017 Status: F Source: [place] 5:40 PM [facility] REPOSITORY TYPE CODE TESTS RESULT OUT [...] Absolute nRBC Performed By: #### CBC #### [facility] [address] [place], [place] [address] BUN, POST DIALYSIS Collected: 11/01/2017 Status: F Source: [place] 5:02 PM [facility] REPOSITORY TYPE CODE TESTS RESULT OUT OF REFERENCE UNITS RANGE LAB BUNPO 7-21 mg/dL BUN, Post Dialysis 17 LAB BUNRAT % Urea Reduction Ratio 62 Performed By: #### BUNPO1 #### [facility] [address] [place], [place] [address] BUN, PRE DIALYSIS Collected: 11/01/2017 Status: F Source: [place] 1:19 PM [facility] REPOSITORY TYPE CODE TESTS RESULT OUT OF REFERENCE UNITS RANGE LAB BUNPR 7-21 mg/dL High BUN, Pre 45 Dialysis Performed By: #### BUNPR #### [facility] [address] [place], [place] [address] PROGRESS Observed: 11/01/2017 Status: COMPLETED Source: [place] 10:55 AM [facility] REPOSITORY HNO ID: [id number] Author: Christine Almaguer) Denise Service: Critical Care Author Type: Physician Reprint Sorter Type: Progress Notes Filed: 11/01/2017 10:57 AM Note Text: SERVICE DATE: 11/01/2017 SERVICE TIME: 10:55 AM MICU PROGRESS NOTE Admission Date: 10/25/2017 Hospital Day # 7 SUBJECTIVE Interval HPI: No Change, required 1U PRBCs and 1U plts overnight OBJECTIVE Vital Signs (last filed) Range in last 24h Temp: 36.7 ?C (98.1 ?F) (11/01/17 08) Temp Min: 36.7 ?C (98.1 ?F) Max: 37.8 ?C (100 ?F) Pulse: 110 (11/01/17 09) Pulse Min: 75 Max: 113 Resp: (!) 31 (11/01/17899) Resp Min: 12 Max: 31 BP: 169/85 (11/01/17799) BP Min: 130/69 Max: 169/85 MAP Non Invasive (Mean Arterial Pressure): 118 (11/01/17 08) MAP Non Invasive (Mean Arterial Pressure) Min: 90 Max: 122 No Data Recorded SpO2: 98 % (11/01/17899) SpO2 Min: 92 % Max: 99 % Pain Score: 0/10 (11/01/17 0853) Fluid Balance: Intake/Output Summary (Last 24 hours) at 11/01/1759 Last data filed at 11/01/17599 Gross per 24 hour Intake 2165 ml Output 3745 ml Net -1580 ml Last Weight: 102.8 kg (226 lb 10.1 oz) (11/01/17 06) Admit Weight: 112.2 kg (247 lb 5.7 oz) (10/25/17 2327) DIET RENAL Lines, Drains, and Airways Line Central Line Single Lumen 10/25/17 2314 Tunneled Left Chest 6 days Dialysis / Apheresis Double Lumen 10/25/17 2314 Admission to Hospital Left Chest 6 days [...] and Moving all extremities Infusion Medications HYDROmorphone 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 0.5 mg/mL NaCl 0.9% Last Rate: 10 [...] Peripheral neuropathy - post-thrombotic syndrome Transferred from [facility] for ongoing L RP bleeding. Major Interval Events: 10/26: Transferred from [facility]. Hgb down to 5.5. CTA showing active [...] >30 - Start PO oxycodone, wean off 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 pump - Hold anticoagulation - Monitor respiratory [...] contrast, now requiring dialysis First HD at [facility] on 10/25 with tunneled dialysis catheter placement [...] IR emobolization of left L3 artery at [facility] on 10/23 IR embolization of left L2 [...] this morning, access site for embolization at [facility], no erythema or induration appreciated on exam, [...] 01, 2017 TIME: 10:55 AM PAGER/CONTACT #: [phone] TYPE AND SCREEN Collected: 11/01/2017 Status: F Source: [place] 10:25 AM [facility] REPOSITORY TYPE CODE TESTS RESULT OUT OF REFERENCE UNITS RANGE LAB %ABR B ABO/RH(D) POSITIVE LAB % Antibody POS Screen Performed By: #### TSCR #### [facility] [address], [place] [address] CBC Collected: 11/01/2017 Status: F Source: [place] 10:07 AM [facility] REPOSITORY TYPE CODE TESTS RESULT OUT [...] Absolute nRBC Performed By: #### CBC #### [facility] [address], [place] [address] CONSULT PROG Observed: 11/01/2017 Status: COMPLETED Source: [place] 9:50 AM [facility] REPOSITORY HNO ID: [id number] Author: Aj Keenan Service: Hematology Author Type: Physician Type: Consult Progress Note Filed: 11/01/2017 5:04 PM Note Text: ? [facility] DEPARTMENT OF HEMATOLOGIC ONCOLOGY AND BLOOD DISORDERS [...] tablet (BACTRIM,SEPTRA) 2 tablet ORAL/FEEDING TUBE -- predniSONE (DELTASONE) tab(s) 80 mg 80 mg ORAL/FEEDING TUBE DAILY hydrocortisone sodium succinate (PF) 100 mg injection (Solu- CORTEF) 100 mg INTRAVENOUS q 4 H PRN HYDROmorphone 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 0.5 mg/mL in NaCl 0.9% 100 mL [...] IR guided intervention (initially on 10/23 at [facility] and 10/26 here at [facility]. ? # Antiphospholipid antibody syndrome Extensive left [...] MD Fellow, Hematology and Medical Oncology Pager: [phone] STAFF ADDENDUM: I have reviewed the history, physical obtained and documented by the Fellow and I personally participated in all of the feranndes components. I have discussed the case and [...] support [place] [phone] THERAPY NT Observed: 11/01/2017 Status: COMPLETED Source: [place] 9:28 AM [facility] REPOSITORY HNO ID: [id number] Author: Brenda (PtDevonte Meraz Service: Physical Therapy Author Type: Physical Therapist Type: Therapy (PT/OT/Speech/Resp) Filed: 11/01/2017 9:34 AM Note Text: Physical Therapy Treatment SERVICE DATE: 11/01/2017 SERVICE TIME: 852 to 916 ROOM: [place] [address] Recommended Discharge Disposition: Acute Rehab Due to [...] Diagnosis: Reduced mobility-other Interventions Provided: Therapeutic Exercise (59966) Therapeutic Exercise (42724) Treatment Minutes: 24 2 units Skilled Intervention(s): [...] 01, 2017 TIME: 9:28 AM PAGER/CONTACT #: [phone] THERAPY NT Observed: 11/01/2017 Status: COMPLETED Source: [place] 9:24 AM [facility] [place] REPOSITORY O ID: [id number] Author: Brenda (Pt) Kt Service: Physical Therapy Author Type: Physical Therapist Type: Therapy (PT/OT/Speech/Resp) Filed: 11/01/2017 9:27 AM Note Text: Physical Therapy Treatment SERVICE DATE: 11/01/2017 SERVICE TIME: 809 to 824 ROOM: [place] [address] Recommended Discharge Disposition: Acute Rehab Due to [...] Diagnosis: Reduced mobility-other Interventions Provided: Therapeutic Activity (94845) Therapeutic Activity (62673) Treatment Minutes: 15 1 unit Skilled Intervention(s): [...] G CODE: PT 6 Clicks Score: 10 (11/01/17 0810) Mobility: Walking and Moving Around Current Status (G8978): CL (11/01/17 0810) Mobility: Walking and Moving Around Goal Status (G8979): CK (11/01/17 0810) Based on clinical assessment and the score [...] 01, 2017 TIME: 9:24 AM PAGER/CONTACT #: [phone] PROGRESS Observed: 11/01/2017 Status: COMPLETED Source: [place] 9:09 AM [facility] REPOSITORY O ID: [id number] Author: Austen Choudhury Service: Critical Care Author Type: Physician Type: Progress Notes Filed: 11/01/2017 9:12 AM Note Text: [facility] STAFF PHYSICIAN NOTE OF PERSONAL INVOLVEMENT IN CARE I have reviewed the progress note?obtained and documented by the physician bankruptcy assistant?and I personally participated in the fernandse components. I have discussed the case and [...] s/p IVC filter. Persistent abdominal pain on 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 pump (using it less after bowel movements). [...] as tolerated. Start oral analgesics to lower 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 pump. Peripheral blood smear. Discuss with hematology [...] ?? SIGNATURE: Austen Choudhury MD [facility] PAGER:[phone] November 01, 2017 CONSULT PROG Observed: 11/01/2017 Status: COMPLETED Source: [place] 7:19 AM [facility] REPOSITORY [facility] ID: [id number] Author: Vini Toledo MD Service: Nephrology Author [...] mg INTRAVENOUS q 4 H PRN HYDROmorphone 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 0.5 mg/mL in NaCl 0.9% 100 mL [...] anuric CAPRICE on CKD stage 3 requiring MASONRY CONTRACTOR ADMINISTRATOR since 10/26/2017 Baseline Cr 1.2 to 1.5 [...] medications for eGFR <10 mL/min Consent for MASONRY CONTRACTOR ADMINISTRATOR: MASONRY CONTRACTOR ADMINISTRATOR initiation date: 10/26/17 Consent obtained and in EMR. Will discuss with staff SIGNATURE: Laya Peters MD PATIENT NAME: Paloma Cannon DATE: November 01, 2017 TIME: 7:21 AM PAGER: [phone] TEACHING PHYSICIAN NOTE OF PERSONAL INVOLVEMENT IN [...] tomorrow Vini Toledo MD, FASN - Pager [phone] November 01, 2017 @ 9:41 AM CBC Collected: 11/01/2017 Status: F Source: [place] 3:02 AM [facility] REPOSITORY TYPE CODE TESTS RESULT OUT [...] By: #### CBC, CMP, MG1, PHOS #### [facility] [address] [place], [place] [address] COMP METABOLIC PANEL Collected: 11/01/2017 Status: F Source: [place] 3:02 AM [facility] REPOSITORY TYPE CODE TESTS RESULT OUT [...] mg/dL Glucose High 124 Result Comment: The [place] [employer] (ADA) provides guidance for cutoff [...] Standards of Medical Care in Diabetes 2016, [place] [employer]. Diabetes Care. 2016.39(Suppl 1). LAB [...] By: #### CBC, CMP, MG1, PHOS #### [facility] [address] [place] [id number] MAGNESIUM Collected: 11/01/2017 Status: F Source: [place] 3:02 AM [facility] REPOSITORY TYPE CODE TESTS RESULT OUT OF REFERENCE UNITS RANGE LAB MG 1.7-2.3 mg/dL Magnesium 1.7 Performed By: #### CBC, CMP, MG1, PHOS #### [facility] [address] [place] [address] PHOSPHORUS Collected: 11/01/2017 Status: F Source: [place] 3:02 AM [facility] REPOSITORY TYPE CODE TESTS RESULT OUT OF REFERENCE UNITS RANGE LAB PHOS 2.7-4.8 mg/dL Phosphorus 3.0 Performed By: #### CBC, CMP, MG1, PHOS #### [place] [address] STAFF REV W CBCDIF Collected: 10/31/2017 Status: F Source: [place] 6:33 PM [facility] REPOSITORY TYPE CODE TESTS RESULT OUT [...] Abs Lymph 0.17 Low LAB AMONO % Owen% 3.0 LAB AAMONO <0.87 k/uL Abs Owen 0.50 LAB AEOS % Eosin% 1.0 LAB [...] Pathologist Reviewed by Gabriel Garcia M.D., Ph.D ([id number]) Performed By: #### STREV #### [facility] [address] [place] [id number] ABD/PEL WO IVCON Observed: 10/31/2017 Status: F Source: [place] 3:20 PM [facility] REPOSITORY * * *Final Report* * * DATE OF EXAM: Oct 31 2017 3:20PM [facility] [place] - CT ABD/PEL WO IVCON / [...] PERSISTENT NONSPECIFIC DIFFUSE GROUNDGLASS ATTENUATION, PROBABLY EDEMA. Dopeman: PSCB Transcribe Date/Time: Oct 31 2017 3:57P Dictated by : SANCHEZ WHITE MD This examination was interpreted and the report reviewed and electronically signed by: TARIK PENG MD on Oct 31 2017 5:44PM EST [id number] PROGRESS Observed: 10/31/2017 Status: COMPLETED Source: [place] 3:17 PM [facility] REPOSITORY HNO ID: [id number] Author: ROXY Solorio (Ct) Service: Radiology Author Type: Clinical Shipping Supervisor Type: Progress Notes Filed: 10/31/2017 3:17 PM [...] PM HAPTOGLOBIN Collected: 10/31/2017 Status: F Source: [place] 12:52 PM [facility] REPOSITORY TYPE CODE TESTS RESULT OUT OF REFERENCE UNITS RANGE LAB HAPTO 31-238 mg/dL Low Haptoglobin <10 Performed By: #### HAPTO, LD6 #### [facility] [address] [place] [address] LD Collected: 10/31/2017 Status: F Source: [facility] 12:52 PM [facility] REPOSITORY TYPE CODE TESTS RESULT OUT OF RANGE REFERENCE UNITS LAB LD 135-214 U/L High LD 1730 Performed By: #### HAPTO, LD6 #### [facility] [address] [place] [address] BUN, POST DIALYSIS Collected: 10/31/2017 Status: F Source: [place] 12:43 PM [facility] REPOSITORY TYPE CODE TESTS RESULT OUT OF REFERENCE UNITS RANGE LAB BUNPO 7-21 mg/dL BUN, 36 High Post Dialysis LAB BUNRAT % Urea Reduction Ratio Unable to Calculate Performed By: #### BUNPO1 #### [facility] [address] [place], [place] [address] ALLIED HEALTH Observed: 10/31/2017 Status: COMPLETED Source: [place] 12:30 PM [facility] [place] REPOSITORY HNO ID: [id number] Author: Aleta Sauer) JEFF Sue Service: Healing Service Author Type: [...] 31, 2017 TIME: 1:31 PM PAGER/CONTACT #: [phone] NUTRITION Observed: 10/31/2017 Status: COMPLETED Source: [place] 12:01 PM [facility] REPOSITORY HNO ID: [id number] Author: Edel Guillen Service: NST-Nutrition Support Team [...] no intervention recommended. ?? She presented to [place] ED on 10/23 due to severe stabbing left-sided abdominal pain radiating to left arm/leg. She had a CT abdomen that showed extensive left retroperitoneal hemorrhage with mass effect to the left kidney, and less extensive hemorrhage along the surface of the spleen and along the mesentery. She was transferred to [facility] as ICU at [facility] was full. Present Diet Order: NPO Nutritional Intake Prior to Admission: <75% estimated energy needs over the past 1 month(s) Last [facility] admit 10/13 poor appetite/intakes reported. Per d/w patient today, appetite has been down since. Frequent hospitalization over the past 3 months. Since admit: reports eating <50% meals (not documented in [facility]). Drinking Ensure clear and willing to try [...] now decreasing with diuresis Last wts in [facility]: 10/13/17 : 104 kg (229 lb 4.5 [...] (257 lb 15 oz) 10/18/2016 114.306 kg [place] body weight 52.3 kg Estimated kilocalorie needs: 3175-5719 kilocalories determined by 25-30 kcal/kg ideal body weight Estimated protein needs: 78-105 grams determined by 1.5-2.0 g/kg [place] weight Estimated fluid needs: per MD NUTRITION [...] 3 units SIGNATURE: Edel Guillen RD, LD, [facility] PATIENT NAME: Paloma Cannon DATE: October 31, 2017 TIME: 12:00 PM PAGER: [phone] THERAPY NT Observed: 10/31/2017 Status: COMPLETED Source: [place] 11:34 AM [facility] REPOSITORY HNO ID: [id number] Author: Tamiko Son Service: Physical Therapy Author Type: Physical Therapist Type: Therapy (PT/OT/Speech/Resp) Filed: 10/31/2017 11:34 AM Note Text: PHYSICAL THERAPY LYMPHEDEMA MISSED VISIT SERVICE DATE: 10/31/2017 SERVICE TIME: 1110 to 1110 ROOM: [place] [address] Attempted Treatment. Patient not seen due to Sleeping. SIGNATURE: Tamiko Son PT PATIENT NAME: Paloma Cannon DATE: October 31, 2017 TIME: 11:34 AM PAGER/CONTACT #: [phone] THERAPY NT Observed: 10/31/2017 Status: COMPLETED Source: [place] 11:33 AM [facility] REPOSITORY HNO ID: [id number] Author: Tamiko Son Service: Physical Therapy Author Type: Physical Therapist Type: Therapy (PT/OT/Speech/Resp) Filed: 10/31/2017 11:33 AM Note Text: PHYSICAL THERAPY LYMPHEDEMA MISSED VISIT SERVICE DATE: 10/31/2017 SERVICE TIME: 0835 to 0835 ROOM: [place] [address] Attempted Treatment. Patient not seen due to Declined (Pt requested that PT return at a later time). SIGNATURE: Tamiko Son PT PATIENT NAME: Paloma Cannon DATE: October 31, 2017 TIME: 11:33 AM PAGER/CONTACT #: [phone] ALLIED HEALTH Observed: 10/31/2017 Status: COMPLETED Source: [place] 11:30 AM [facility] REPOSITORY HNO ID: [id number] Author: Opal Polo Service: Music Therapy Author [...] 31, 2017 TIME: 12:20 PM PAGER/CONTACT #: [phone] PROGRESS Observed: 10/31/2017 Status: COMPLETED Source: [place] 11:29 AM [facility] REPOSITORY HNO ID: [id number] Author: Austen Choudhury Service: Critical Care Author [...] and Moving all extremities Infusion Medications HYDROmorphone 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 0.5 mg/mL NaCl 0.9% Last Rate: 10 [...] Peripheral neuropathy - post-thrombotic syndrome Transferred from [facility] for ongoing L RP bleeding. Major Interval Events: 10/26: Transferred from [facility]. Hgb down to 5.5. CTA showing active [...] contrast, now requiring dialysis First HD at [facility] on 10/25 with tunneled dialysis catheter placement [...] IR emobolization of left L3 artery at [facility] on 10/23 IR embolization of left L2 [...] this morning, access site for embolization at [facility], no erythema or induration appreciated on exam, [...] 31, 2017 TIME: 11:29 AM PAGER/CONTACT #: [phone] [facility] STAFF PHYSICIAN NOTE OF PERSONAL INVOLVEMENT IN CARE I have reviewed the progress note obtained and documented by the physician bankruptcy assistant and I personally participated in the [...] s/p IVC filter. Persistent abdominal pain on 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 pump (using it less after bowel movements). [...] ? SIGNATURE: Austen Choudhury MD [facility] PAGER:[phone] October 31, 2017 CBC Collected: 10/31/2017 Status: F Source: [place] 11:10 AM [facility] REPOSITORY TYPE CODE TESTS RESULT [...] Absolute nRBC Performed By: #### CBC #### [facility] [address] [place], [place] [address] CONSULT PROG Observed: 10/31/2017 Status: COMPLETED Source: [place] 10:21 AM [facility] REPOSITORY HNO ID: [id number] Author: Juan Christopher (Fel) Service: Hematology Author Type: Fellow Type: Consult Progress Note Filed: 10/31/2017 6:13 PM Note Text: ? [facility] DEPARTMENT OF HEMATOLOGIC ONCOLOGY AND BLOOD DISORDERS [...] mg INTRAVENOUS q 4 H PRN HYDROmorphone 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 0.5 mg/mL in NaCl 0.9% 100 mL [...] IR guided intervention (initially on 10/23 at [facility] and 10/26 here at [facility]. ? # Antiphospholipid antibody syndrome Extensive left [...] MD Fellow, Hematology and Medical Oncology Pager: [phone] CONSULT PROG Observed: 10/31/2017 Status: COMPLETED Source: [place] 8:45 AM [facility] REPOSITORY HNO ID: [id number] Author: Vini Toledo MD Service: Nephrology Author [...] mg INTRAVENOUS q 4 H PRN HYDROmorphone 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 0.5 mg/mL in NaCl 0.9% 100 mL [...] anuric CAPRICE on CKD stage 3 requiring MASONRY CONTRACTOR ADMINISTRATOR since 10/26/2017 Baseline Cr 1.2 to 1.5 [...] medications for eGFR <10 mL/min Consent for MASONRY CONTRACTOR ADMINISTRATOR: MASONRY CONTRACTOR ADMINISTRATOR initiation date: 10/26/17 Consent obtained and in EMR. Will discuss with staff SIGNATURE: Laya Peters MD PATIENT NAME: Paloma Cannon DATE: October 31, 2017 TIME: 8:45 AM PAGER: [phone] TEACHING PHYSICIAN NOTE OF PERSONAL INVOLVEMENT IN [...] qD Vini Toledo MD, FASN - Pager [phone] October 31, 2017 @ 10:11 AM CONSULT PROG Observed: 10/31/2017 Status: COMPLETED Source: [place] 8:41 AM [facility] REPOSITORY HNO ID: [id number] Author: Lisseth Claudio MD Service: Apheresis Author [...] detected. No call per procedure. 10/31/17 00:32 SShaneKala Glucose (mg/dL) Date Value 10/30/2017 107 Potassium [...] current benefits of PLEX. Plan discussed with Drs. Andujar and Shlomo. Lisseth Claudio MD 10/31/2017 8:50 AM BUN, PRE DIALYSIS Collected: 10/31/2017 Status: F Source: [place] 8:30 AM [facility] REPOSITORY TYPE CODE TESTS RESULT OUT OF REFERENCE UNITS RANGE LAB BUNPR 7-21 mg/dL High BUN, Pre 33 Dialysis Performed By: #### BUNPR, HBSAG, AHBSAG #### [facility] [address] [place] [address] HEPATITIS B SURF. AG Collected: 10/31/2017 Status: F Source: [place] 8:30 AM [facility] REPOSITORY TYPE CODE TESTS RESULT OUT OF REFERENCE UNITS RANGE LAB HBSAG Negative Hepatitis B Negative Surf. Ag Performed By: #### BUNPR, HBSAG, AHBSAG #### [facility] [address] [place] [address] HEPB SURFACE AB,QUAL Collected: 10/31/2017 Status: F Source: [place] 8:30 AM [facility] REPOSITORY TYPE CODE TESTS RESULT OUT OF REFERENCE UNITS RANGE LAB AHBSAG Negative HepB Surface Negative Ab,Qual Result Comment: NEGATIVE Performed By: #### BUNPR, HBSAG, AHBSAG #### [facility] [address] [place] [address] CBC Collected: 10/30/2017 Status: F Source: [place] 11:38 PM [facility] REPOSITORY TYPE CODE TESTS RESULT OUT [...] By: #### CBC, BMP, MG1, PHOS #### [facility] [address] [place], [place] [address] BASIC METABOLIC PANL Collected: 10/30/2017 Status: F Source: [place] 11:38 PM [facility] REPOSITORY TYPE CODE TESTS RESULT OUT OF REFERENCE UNITS RANGE LAB GLU 74-99 mg/dL High Glucose 107 Result Comment: The [place] [employer] (ADA) provides guidance for cutoff [...] Standards of Medical Care in Diabetes 2016, [place] [employer]. Diabetes Care. 2016.39(Suppl 1). LAB [...] has been calibrated to be traceable to [place]. An eGFR <60 mL/min/1.73m2 for >3 months is consistent with chronic kidney disease. Refer to KDOQI guidelines for clinical interpretation. In patients with unstable renal function, e.g. those with acute kidney injury, the eGFR may not accurately reflect actual GFR. Performed By: #### CBC, BMP, MG1, PHOS #### [facility] [address] [place], [place] [address] MAGNESIUM Collected: 10/30/2017 Status: F Source: [place] 11:38 PM [facility] REPOSITORY TYPE CODE TESTS RESULT OUT OF REFERENCE UNITS RANGE LAB MG 1.7-2.3 mg/dL Magnesium 2.0 Performed By: #### CBC, BMP, MG1, PHOS #### [facility] [address] [place], [place] [address] PHOSPHORUS Collected: 10/30/2017 Status: F Source: [place] 11:38 PM [facility] REPOSITORY TYPE CODE TESTS RESULT OUT OF REFERENCE UNITS RANGE LAB PHOS 2.7-4.8 mg/dL Phosphorus 3.2 Performed By: #### CBC, BMP, MG1, PHOS #### [facility] [address] [place], [place] [address] CBC Collected: 10/30/2017 Status: F Source: [place] 6:50 PM [facility] REPOSITORY TYPE CODE TESTS RESULT OUT [...] Absolute nRBC Performed By: #### CBC #### [facility] [address] [place] [address] XR ABDOMEN 1V SUPINE Observed: 10/30/2017 Status: F Source: [place] 6:16 PM [facility] REPOSITORY * * *Final Report* * * [...] findings. IMPRESSION: NO ILEUS OR BOWEL OBSTRUCTION Dopeman: PSCB Transcribe Date/Time: Oct 30 2017 7:36P Dictated by : JJ DOBBS MD This examination was interpreted and the report reviewed and electronically signed by: JJ DOBBS MD on Oct 30 2017 7:37PM EST [id number] THERAPY NT Observed: 10/30/2017 Status: COMPLETED Source: [place] 5:36 PM [facility] REPOSITORY HNO ID: [id number] Author: Tamiko SanchezOt/Carlos Nelson Service: Occupational Therapy Author Type: Occupational Therapist Type: Therapy (PT/OT/Speech/Resp) Filed: 10/30/2017 5:40 PM Note Text: Occupational Therapy Evaluation SERVICE DATE: 10/30/2017 SERVICE TIME: 1628 to 1651 ROOM: [place] [address] Recommended Discharge Disposition: Unable to determine due [...] daily living (ADL) Interventions Provided: Evaluation;Therapeutic Activity (46678) $ Evaluation-Moderate (65216) Billed Units: 1 unit Therapeutic Activity (94173) Treatment Minutes: 8 1 unit Skilled Intervention(s): [...] old female admitted with RP bleed from [place], HG drops/trending down, requiring multiple units RBCs over last few days, hg today 7.6, patient with incr back pain- senior painter pump Reason for Occupational Therapy Consult: decr [...] October 30, 2017 TIME: 5:36 PM PAGER: [phone] PLAN OF CARE Observed: 10/30/2017 Status: COMPLETED Source: [place] 4:32 PM [facility] REPOSITORY O ID: [id number] Author: Jcarlos Rand ([employer]) Service: (none) Author Type: (none) Type: Plan of Care Filed: 10/30/2017 4:50 PM Note Text: Attestation signed by Rebekah Parada (Pharmacist) at 10/31/2017 7:35 AM MEDICATION RECONCILIATION Patient Name: Paloma Cannon : 1990 I confirm and agree with the information below. Reconciliation: Yes All ASSET COORDINATOR medications addressed by LIP Additional comments: N/A Allergies: ALLERGIES Allergen Reactions - Rhubarb Rash, Hives - Heparin Other: See Comments Per patient history of HIT - was on angiomax however then took l fondaparinux for bridging to coumadin. - Iv Contrast [Iodine] Other: See Comments shuts kidneys down per patient - Rituximab Other: See Comments Elevated cardiac enzymes Current ASSET COORDINATOR Medications: Prior to Admission medications as of [...] daily as needed. Unknown at Unknown time Sebastian HaD (Critical Care Pharmacist) - [id number] October 31, 2017 7:34 AM MEDICATION HISTORY [...] bid prn Sulfamethoxazole/trimethoprim DS 1 tab po M/W/ Allergies: ALLERGIES Allergen Reactions - Rhubarb Rash, Hives - Heparin Other: See Comments Per patient history of HIT - was on angiomax however then took l fondaparinux for bridging to coumadin. - Iv Contrast [Iodine] Other: See Comments shuts kidneys down per patient - Rituximab Other: See Comments Elevated cardiac enzymes Preferred Pharmacy: [facility] [place], [place] [address] - [address] - [phone] Current ASSET COORDINATOR Medications: Prior to Admission medications as of [...] needed. Unknown at Unknown time Jcarlos Rand ([employer]) October 30, 2017 4:32 PM PROGRESS Observed: 10/30/2017 Status: COMPLETED Source: [place] 12:41 PM [facility] REPOSITORY O ID: [id number] Author: Austen Choudhury Service: Critical Care Author [...] Max: 37.2 ?C (99 ?F) Pulse: 97 (04/23/18 1000) Pulse Min: 83 Max: 112 Resp: [...] and Moving all extremities Infusion Medications HYDROmorphone 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 0.5 mg/mL NaCl 0.9% Last Rate: 10 [...] Peripheral neuropathy - post-thrombotic syndrome Transferred from [facility] for ongoing L RP bleeding. Major Interval Events: 10/26: Transferred from [facility]. Hgb down to 5.5. CTA showing active [...] status - CVVH - possible apheresis per heme ASSESSMENT AND PLAN Overview, Assessment AND Plan, [...] cont pain regimen CAPRICE (acute kidney injury) ([facility]) 10/08/2015 - Present Overview CAPRICE on CKD III, 2/2 contrast, now requiring dialysis First HD at [facility] on 10/25 with tunneled dialysis catheter placement [...] PLAN: - Continue neurontin Anti-phospholipid antibody syndrome ([facility]) 10/25/2017 - Present Current Assessment AND Plan PLAN: - Plasmapheresis q2 weeks ([facility] will arrange for possible PLEX Monday 10/30) - Continue prednisone 80mg daily - Hold anticoagulation until resolution of retroperitoneal bleed - Hematology following, appreciate recs - Vascular med has signed off Retroperitoneal hematoma 10/26/2017 - Present Overview Retroperitoneal bleed: s/p 7 units PRBCs s/p IR emobolization of left L3 artery at [facility] on 10/23 IR embolization of left L2 and L3 arteries on 10/26 Current Assessment AND Plan Assessment: secondary to anticoagulation PLAN: - Monitor CBC and transfuse for Hgb<7 - Premedicate for transfusions - Hold anticoagulation - Heme following, appreciate recs - Increased gabapentin per pain management for associated abdominal pain, cont to wean off 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 pump Right groin pain 10/27/2017 - Present Overview 10/27: C/o acute pain this morning, access site for embolization at [facility], no erythema or induration appreciated on exam, [...] - cont pain regimen Moraxella catarrhalis pneumonia ([facility]) 10/29/2017 - Present Current Assessment AND Plan PLAN: - Ceftriaxone (10-26-*) - dose adjusted to 2g per nephrology recs - CXR Plan of care discussed with: Patient and ICU Team SIGNATURE: Christine Walker PA-C PATIENT NAME: Paloma Cannon DATE: October 30, 2017 TIME: 12:41 PM PAGER/CONTACT #: [phone] [facility] STAFF PHYSICIAN NOTE OF PERSONAL INVOLVEMENT IN CARE I have reviewed the progress note obtained and documented by the physician bankruptcy assistant and I personally participated in the [...] s/p IVC filter. Persistent abdominal pain on 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 pump. On 3 L/min of O2. Moraxella [...] minutes. SIGNATURE: Austen Choudhury MD [facility] PAGER:[phone] DATE of SERVICE: October 30, 2017 THERAPY NT Observed: 10/30/2017 Status: COMPLETED Source: [place] 11:34 AM [facility] REPOSITORY HNO ID: [id number] Author: Brenda (PtDevonte Meraz Service: Physical Therapy Author Type: Physical Therapist Type: Therapy (PT/OT/Speech/Resp) Filed: 10/30/2017 11:47 AM Note Text: Physical Therapy Evaluation SERVICE DATE: 10/30/2017 SERVICE TIME: 0950 to 1028 ROOM: [place] [address] Recommended Discharge Disposition: Unable to determine due [...] Diagnosis: Reduced mobility-other Interventions Provided: Therapeutic Activity (45261);Re-evaluation Therapeutic Activity (88483) Treatment Minutes: 23 2 units Skilled Intervention(s): [...] Peripheral neuropathy - post-thrombotic syndrome Transferred from [facility] for ongoing L RP bleeding. ? Major Interval Events: 10/26: Transferred from [facility]. Hgb down to 5.5. CTA showing active [...] 30, 2017 TIME: 11:34 AM PAGER/CONTACT #: [phone] CASE MANAGEM Observed: 10/30/2017 Status: COMPLETED Source: [place] 11:16 AM [facility] REPOSITORY O ID: [id number] Author: Lisseth Coto (Sw) Service: Case Management Author Type: Workday Director Type: Care Mgt Progress Note Filed: 10/30/2017 [...] pt remains on CVVHD. DC needs TBD. SW will continue to follow. SIGNATURE: JUAN PABLO Romo PATIENT NAME: Paloma Cannon DATE: October 30, 2017 TIME: 11:16 AM PAGER/CONTACT #: [phone] CBC Collected: 10/30/2017 Status: F Source: [place] 11:15 AM [facility] REPOSITORY TYPE CODE TESTS RESULT OUT [...] Comment: Reviewed Performed By: #### CBC #### [facility] [address] [place], [place] [address] THERAPY NT Observed: 10/30/2017 Status: COMPLETED Source: [place] 11:10 AM [facility] REPOSITORY HNO ID: [id number] Author: Tamiko (Pt) Adelaida Service: Physical Therapy Author Type: Physical Therapist Type: Therapy (PT/OT/Speech/Resp) Filed: 10/30/2017 11:20 AM Note Text: Physical Therapy Wound/Lymph Evaluation SERVICE DATE: 10/30/2017 SERVICE TIME: 829 to 923 ROOM: [place] [address] Recommended Discharge Disposition Comments: will require further [...] with: Patient TREATMENT INTERVENTIONS: Interventions Provided: Evaluation;Self Intermediate Management (57901);Manual Therapy (92240) $ Evaluation-High (93650) Billed Units: 1 unit Self Intermediate Management (40926) Treatment Minutes: 14 1 unit Skilled Intervention(s): [...] involved extremity. Written handouts provided Manual Therapy (73114) Treatment Minutes: 25 2 units Skilled Intervention: [...] femoral vein, Uncontrolled hypertension, Pain control on 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 pump and history of HIT ? Patient [...] 30, 2017 TIME: 11:10 AM PAGER/CONTACT #: [phone] XR CHEST 1V FRONTAL Observed: 10/30/2017 Status: F Source: [facility] 10:42 AM [facility] REPOSITORY * [...] Cardiomediastinal silhouette: Stable cardiomediastinal silhouette. Other: . Dopeman: MURTAZA Transcribe Date/Time: Oct 30 2017 11:34A Dictated by : STELLA COSME MD This examination was interpreted and the report reviewed and electronically signed by: STELAL COSME MD on Oct 30 2017 11:35AM EST [id number] CONSULT PROG Observed: 10/30/2017 Status: COMPLETED Source: [place] 8:29 AM [facility] REPOSITORY HNO ID: [id number] Author: Aj Keenan Service: Hematology Author Type: Physician Type: Consult Progress Note Filed: 10/30/2017 6:43 PM Note Text: ? [facility] DEPARTMENT OF HEMATOLOGIC ONCOLOGY AND BLOOD DISORDERS [...] mg INTRAVENOUS q 4 H PRN HYDROmorphone 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 0.5 mg/mL in NaCl 0.9% 100 mL [...] IR guided intervention (initially on 10/23 at [facility] and 10/26 here at [facility]. ? # Antiphospholipid antibody syndrome Extensive left [...] MD Fellow, Hematology and Medical Oncology Pager: [phone] STAFF ADDENDUM: I have reviewed the history, [...] clinical instability--readdress [place] [phone] CONSULT PROG Observed: 10/30/2017 Status: COMPLETED Source: [place] 7:48 AM [facility] REPOSITORY O ID: [id number] Author: Vini Toledo MD Service: Nephrology Author [...] mg INTRAVENOUS q 4 H PRN HYDROmorphone 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 0.5 mg/mL in NaCl 0.9% 100 mL [...] anuric CAPRICE on CKD stage 3 requiring MASONRY CONTRACTOR ADMINISTRATOR since 10/26/2017 Baseline Cr 1.2 to 1.5 [...] once she is off CVVHD Consent for MASONRY CONTRACTOR ADMINISTRATOR: MASONRY CONTRACTOR ADMINISTRATOR initiation date: 10/26/17 Consent obtained and in EMR. Will discuss with staff SIGNATURE: Laya Peters MD PATIENT NAME: Paloma Cannon DATE: October 30, 2017 TIME: 8:12 AM PAGER: [phone] TEACHING PHYSICIAN NOTE OF PERSONAL INVOLVEMENT IN [...] FABY, mass effect on kidney - On MASONRY CONTRACTOR ADMINISTRATOR since 10/26 #. Stage III CKD - [...] tomorrow Vini Toledo MD, FASN - Pager [phone] October 30, 2017 @ 1:35 PM CBC Collected: 10/29/2017 Status: F Source: [place] 11:35 PM [facility] REPOSITORY TYPE CODE TESTS RESULT OUT [...] No call per procedure. G60 10/30/17 0010 [facility] MPV 9.0-12.7 fL MPV <<DO NOT REPORT>> LAB ABSNUC <0.01 k/uL 1.72 High Absolute nRBC Performed By: #### CBC, BMP, MG1, PHOS #### [facility] [address] [place], [place] [address] BASIC METABOLIC PANL Collected: 10/29/2017 Status: F Source: [place] 11:35 PM [facility] REPOSITORY TYPE CODE TESTS RESULT OUT OF REFERENCE UNITS RANGE LAB GLU 74-99 mg/dL High Glucose 115 Result Comment: The [place] [employer] (ADA) provides guidance for cutoff [...] Standards of Medical Care in Diabetes 2016, [place] [employer]. Diabetes Care. 2016.39(Suppl 1). LAB [...] By: #### CBC, BMP, MG1, PHOS #### [facility] [address] [place], [place] [address] MAGNESIUM Collected: 10/29/2017 Status: F Source: [place] 11:35 PM [facility] REPOSITORY TYPE CODE TESTS RESULT OUT OF REFERENCE UNITS RANGE LAB MG 1.7-2.3 mg/dL Magnesium 2.2 Performed By: #### CBC, BMP, MG1, PHOS #### [facility] [address] [place], [place] [address] PHOSPHORUS Collected: 10/29/2017 Status: F Source: [place] 11:35 PM [facility] REPOSITORY TYPE CODE TESTS RESULT OUT OF REFERENCE UNITS RANGE LAB PHOS 2.7-4.8 mg/dL Phosphorus 2.8 Performed By: #### CBC, BMP, MG1, PHOS #### [facility] [address] [place], [place] [address] CBC Collected: 10/29/2017 Status: F Source: [place] 6:52 PM [facility] REPOSITORY TYPE CODE TESTS RESULT OUT [...] Absolute nRBC Performed By: #### CBC #### [facility] [address] [place], [place] [address] PROGRESS Observed: 10/29/2017 Status: COMPLETED Source: [place] 1:03 PM [facility] REPOSITORY HNO ID: [id number] Author: Christine Walker (Pa) Service: Critical Care Author Type: Physician Reprint Sorter Type: Progress Notes Filed: 10/29/2017 1:41 PM Note Text: SERVICE DATE: 10/29/2017 SERVICE TIME: 1:03 PM MICU PROGRESS NOTE Admission Date: 10/25/2017 Hospital Day # 4 SUBJECTIVE Interval HPI: Still having pain despite PO oxycodone and 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 bolus of dilaudid OBJECTIVE Vital Signs (last filed) Range in last 24h Temp: 37.2 ?C (99 ?F) (10/29/17 0800) Temp Min: 36.2 ?C (97.2 ?F) Max: 37.2 ?C (99 ?F) Pulse: (!) 124 (10/29/17 0830) Pulse Min: 78 Max: 124 Resp: 18 (10/29/17 08) Resp Min: 12 Max: 50 BP: 129/64 [...] and Moving all extremities Infusion Medications HYDROmorphone 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 0.5 mg/mL NaCl 0.9% Last Rate: 10 [...] Peripheral neuropathy - post-thrombotic syndrome Transferred from [facility] for ongoing L RP bleeding. Major Interval Events: 10/26: Transferred from [facility]. Hgb down to 5.5. CTA showing active [...] - Restart cyclophosphamide 150mg daily (ok per [facility] and Dr. Alicea) - Continue prednisone 80mg [...] contrast, now requiring dialysis First HD at [facility] on 10/25 with tunneled dialysis catheter placement [...] AND Plan PLAN: - Plasmapheresis q2 weeks ([facility] will arrange for PLEX Monday 10/30) - Continue prednisone 80mg daily - Hold anticoagulation until resolution of retroperitoneal bleed - Hematology following, appreciate recs - Vascular med has signed off Retroperitoneal hematoma 10/26/2017 - Present Overview Retroperitoneal bleed: s/p multiple PRBC transfusions s/p IR emobolization of left L3 artery at [facility] on 10/23 IR embolization of left L2 and L3 arteries on 10/26 Current Assessment AND Plan Assessment: secondary to anticoagulation (Fondaparinux) PLAN: - Monitor CBC and transfuse for Hgb<7 - Premedicate for transfusions - Hold anticoagulation - 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 pump for RP associated pain (added basal rate), d/c oxycodone Right groin pain 10/27/2017 - Present Overview 10/27: C/o acute pain this morning, access site for embolization at [facility], no erythema or induration appreciated on exam, [...] 29, 2017 TIME: 1:03 PM PAGER/CONTACT #: [phone] TYPE AND SCREEN Collected: 10/29/2017 Status: F Source: [place] 11:56 AM [facility] REPOSITORY TYPE CODE TESTS RESULT OUT OF REFERENCE UNITS RANGE LAB %ABR B ABO/RH(D) POSITIVE LAB % Antibody POS Screen Performed By: #### TSCR #### [facility] [address] [place] [address] CBC Collected: 10/29/2017 Status: F Source: [place] 11:50 AM [facility] REPOSITORY TYPE CODE TESTS RESULT OUT [...] Absolute nRBC Performed By: #### CBC #### [facility] [address] [place], [place] [address] PROGRESS Observed: 10/29/2017 Status: COMPLETED Source: [place] 11:11 AM [facility] REPOSITORY HNO ID: [id number] Author: Germán Lopez Service: Critical Care Author Type: Physician Type: Progress Notes Filed: 10/29/2017 11:18 AM Note Text: [facility] STAFF PHYSICIAN NOTE OF PERSONAL INVOLVEMENT IN CARE I have reviewed the progress note obtained and documented by the physician bankruptcy assistant and I personally participated in the [...] Amlodipine increased UF at 350 Continue on 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 oxycodone for pain Gabapentin for neuropathy On [...] femoral vein Uncontrolled hypertension Pain control on 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 pump. History of HIT?? PLAN:? Vascular medicine [...] minutes. SIGNATURE: Germán Lopez MD [facility] PAGER:[phone] DATE of SERVICE: October 29, 2017 CONSULT PROG Observed: 10/29/2017 Status: COMPLETED Source: [place] 8:52 AM [facility] REPOSITORY O ID: [id number] Author: Morteza Smart Service: Vascular Medicine Author [...] mg INTRAVENOUS q 4 H PRN HYDROmorphone 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 0.5 mg/mL in NaCl 0.9% 100 mL [...] 29, 2017 TIME: 8:52 AM PAGER/CONTACT #: [phone] . CONSULT PROG Observed: 10/29/2017 Status: COMPLETED Source: [place] 6:56 AM [facility] REPOSITORY O ID: [id number] Author: Jonatan Blas Service: Nephrology Author Type: [...] mg INTRAVENOUS q 4 H PRN HYDROmorphone 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 0.5 mg/mL in NaCl 0.9% 100 mL [...] vasculitic process - Access: [facility] TDC - MASONRY CONTRACTOR ADMINISTRATOR initiated on 10/26/17 - No current signs [...] Daily weights - Strict I/O's Consent for MASONRY CONTRACTOR ADMINISTRATOR: MASONRY CONTRACTOR ADMINISTRATOR initiation date: 10/26/17 Consent obtained and in EMR. Dr. Laya Peters (pager [phone]) will assume care on MondayOctober 30 SIGNATURE: Day Vásquez MD PATIENT NAME: Paloma Cannon DATE: October 29, 2017 TIME: 6:56 AM PAGER: [phone] [facility] [place] [facility] STAFF PHYSICIAN NOTE OF PERSONAL INVOLVEMENT [...] Jonatan Blas MD Staff Nephrology and Hypertension [facility] Beeper Number: [phone] Date of Service: 10/29/2017 Time of Service: 9:21 AM CBC Collected: 10/29/2017 Status: F Source: [place] 6:24 AM [facility] REPOSITORY TYPE CODE TESTS RESULT OUT [...] Absolute nRBC Performed By: #### CBC #### [facility] [address] [place] [address] NURSING PROG Observed: 10/29/2017 Status: COMPLETED Source: [place] 5:20 AM [facility] REPOSITORY HNO ID: [id number] Author: Jose (Jeff) JEFF Woods Service: Nursing Author Type: Registered Nurse Type: Nursing Progress Note Filed: 10/29/2017 5:22 AM Note Text: Nursing Progress Note Patient Name: Paloma Cannon [id number]: Pt was ordered 1 unit of platelet, [facility] and was told not to give the platelet due to vascular medicine wants pt to avoid platelets transfusion as much as possible. Platelet was returned to the blood bank This note was completed by: Jose Woods RN BASIC METABOLIC PANL Collected: 10/28/2017 Status: F Source: [place] 11:52 PM [facility] REPOSITORY TYPE CODE TESTS RESULT OUT OF REFERENCE UNITS RANGE LAB GLU 74-99 mg/dL Glucose 91 Result Comment: The [place] Diabetes [employer] (ADA) provides guidance for cutoff [...] Standards of Medical Care in Diabetes 2016, [place] [employer]. Diabetes Care. 2016.39(Suppl 1). LAB [...] By: #### BMP, MG1, PHOS, CBC #### [facility] [address] [place], [place] [address] MAGNESIUM Collected: 10/28/2017 Status: F Source: [place] 11:52 PM [facility] REPOSITORY TYPE CODE TESTS RESULT OUT OF REFERENCE UNITS RANGE LAB MG 1.7-2.3 mg/dL Magnesium 1.9 Performed By: #### BMP, MG1, PHOS, CBC #### [facility] [address] [place], [place] [address] PHOSPHORUS Collected: 10/28/2017 Status: F Source: [place] 11:52 PM [facility] REPOSITORY TYPE CODE TESTS RESULT OUT OF REFERENCE UNITS RANGE LAB PHOS 2.7-4.8 mg/dL Phosphorus 3.4 Performed By: #### BMP, MG1, PHOS, CBC #### [facility] [address] [place], [place] [address] CBC Collected: 10/28/2017 Status: F Source: [place] 11:52 PM [facility] REPOSITORY TYPE CODE TESTS RESULT OUT [...] By: #### BMP, MG1, PHOS, CBC #### [facility] [address] [place], [place] [address] CBC Collected: 10/28/2017 Status: F Source: [place] 7:47 PM [facility] REPOSITORY TYPE CODE TESTS RESULT OUT [...] Absolute nRBC Performed By: #### CBC #### [facility] [address] [place] [id number] PROGRESS Observed: 10/28/2017 Status: COMPLETED Source: [place] 1:58 PM [facility] [place] REPOSITORY HNO ID: [id number] Author: Christine Almaguer) Denise Service: Critical Care Author Type: Physician Reprint Sorter Type: Progress Notes Filed: 10/28/2017 2:00 PM Note Text: SERVICE DATE: 10/28/2017 SERVICE TIME: 1:58 PM MICU PROGRESS NOTE Admission Date: 10/25/2017 Hospital Day # 3 SUBJECTIVE Interval HPI: Pt states pain is better controlled today, resting comfortably in bed OBJECTIVE Vital Signs (last filed) Range in last 24h Temp: 36.9 ?C (98.4 ?F) (10/28/17 0700) Temp Min: 36.1 ?C (97 ?F) Max: 36.9 ?C (98.4 ?F) Pulse: 92 (10/28/17 0625) Pulse Min: 80 Max: 108 Resp: 25 (10/28/17 0625) Resp Min: 12 Max: 45 BP: 177/82 (10/28/17 0625) BP Min: 140/94 Max: 213/98 MAP Non Invasive (Mean Arterial Pressure): 118 (10/28/17 0625) MAP Non Invasive (Mean Arterial Pressure) Min: 107 Max: 141 No Data Recorded SpO2: 99 % (10/28/17 0625) SpO2 Min: 92 % Max: 100 % Pain Score: 9/10 (10/28/17 0700) Fluid Balance: Intake/Output Summary (Last 24 [...] and Moving all extremities Infusion Medications HYDROmorphone 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 0.5 mg/mL NaCl 0.9% Last Rate: 30 [...] Peripheral neuropathy - post-thrombotic syndrome Transferred from [facility] for ongoing L RP bleeding. Major Interval Events: 10/26: Transferred from [facility]. Hgb down to 5.5. CTA showing active extravasation, IR embolization of left L2, L3 arteries 10/27: Hgb 6.6, continued to transfuse PRBCs, acute onset right groin pain 10/28: Hgb 6.5, additional PRBCs given Plan for Day: - Trend CBC and transfuse as needed - Hold anticoagulation - Monitor respiratory status - CVVH - wean off 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 pump to PO oxycodone ASSESSMENT AND PLAN [...] contrast, now requiring dialysis First HD at [facility] on 10/25 with tunneled dialysis catheter placement [...] IR emobolization of left L3 artery at [facility] on 10/23 IR embolization of left L2 and L3 arteries on 10/26 Current Assessment AND Plan Assessment: secondary to anticoagulation PLAN: - Monitor CBC and transfuse for Hgb<7 - Premedicate for transfusions - Hold anticoagulation - wean off 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 pump to PO oxycodone for L sided flank pain Right groin pain 10/27/2017 - Present Overview 10/27: C/o acute pain this morning, access site for embolization at [facility], no erythema or induration appreciated on exam, [...] 28, 2017 TIME: 1:58 PM PAGER/CONTACT #: [phone] CBC Collected: 10/28/2017 Status: F Source: [place] 1:10 PM [facility] REPOSITORY TYPE CODE TESTS RESULT [...] Absolute nRBC Performed By: #### CBC #### [facility] [address] [place], [place] [address] CONSULT Observed: 10/28/2017 Status: COMPLETED Source: [place] 10:14 AM [facility] REPOSITORY HNO ID: [id number] Author: Lupillo Newman MD Service: Vascular Surgery [...] receives plasmapheresis q2 weeks, who presented to [facility] on 10/23 with severe stabbing left-sided abdominal pain radiating to the left arm/leg and was found to have a large left RP bleed, after which she was transferred to [facility] - her Fondaparinux has been held since [...] No Prescriptions Prior to Admission: [] HYDROmorphone 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 CLINICIAN DOSE 0.5 mg/mL Inject 0.8 mL [...] mg INTRAVENOUS q 4 H PRN HYDROmorphone 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 0.5 mg/mL in NaCl 0.9% 100 mL [...] Temp Temp src Pulse Resp SpO2 Weight 04/21/18 0931 152/70 36.9 ?C (98.4 ?F) Oral [...] - - 97 26 95 % - 10/27/171999 (!) 213/98 - - 101 30 94 [...] endograft (Endoglix AFX, 2012), who presented to [facility] and then [facility] on 10/23 with severe stabbing left-sided abdominal pain radiating to the left arm/leg and was found to have a large left RP bleed, after which she was transferred to [facility] - her Fondaparinux has been held since [...] 28, 2017 TIME: 10:14 AM PAGER/CONTACT #: [phone] PROGRESS Observed: 10/28/2017 Status: COMPLETED Source: [place] 8:36 AM [facility] REPOSITORY O ID: [id number] Author: Germán Lopez Service: Critical Care Author Type: Physician Type: Progress Notes Filed: 10/28/2017 8:50 AM Note Text: [facility] STAFF PHYSICIAN NOTE OF PERSONAL INVOLVEMENT IN CARE I have reviewed the progress note obtained and documented by the physician bankruptcy assistant and I personally participated in the [...] femoral vein Uncontrolled hypertension Pain control on 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 pump. History of HIT?? PLAN:? Vascular medicine [...] minutes. SIGNATURE: Germán Lopez MD [facility] PAGER:[phone] DATE of SERVICE: October 28, 2017 CONSULT PROG Observed: 10/28/2017 Status: COMPLETED Source: [place] 6:54 AM [facility] [place] REPOSITORY O ID: [id number] Author: Jonatan Blas Service: Nephrology Author Type: [...] 2 tablet (BACTRIM,SEPTRA) 2 tablet ORAL/FEEDING TUBE MO-WE-FR predniSONE (DELTASONE) tab(s) 80 mg 80 mg ORAL/FEEDING TUBE DAILY gabapentin 100 mg cap(s) (NEURONTIN) 100 mg ORAL q 12 H hydrocortisone sodium succinate (PF) 100 mg injection (Solu- CORTEF) 100 mg INTRAVENOUS q 4 H PRN sevelamer carbonate 800 mg tab(s) (RENVELA) 800 mg ORAL TID w MEALS HYDROmorphone 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 0.5 mg/mL in NaCl 0.9% 100 mL [...] vasculitic process - Access: [facility] TDC - MASONRY CONTRACTOR ADMINISTRATOR initiated on 10/26/17 - No current signs [...] Daily weights - Strict I/O's Consent for MASONRY CONTRACTOR ADMINISTRATOR: MASONRY CONTRACTOR ADMINISTRATOR initiation date: 10/26/17 Consent obtained and in EMR. Dr. Laya Peters (pager [phone]) will assume care on MondayOctober 30 SIGNATURE: Day Vásquez MD PATIENT NAME: Paloma Cannon DATE: October 28, 2017 TIME: 6:54 AM PAGER: [phone] [facility] [place] [facility] STAFF PHYSICIAN NOTE OF PERSONAL INVOLVEMENT [...] Jonatan Blas MD Staff Nephrology and Hypertension [facility] Beeper Number: [phone] Date of Service: 10/28/2017 Time of Service: 7:18 AM CONSULT PROG Observed: 10/28/2017 Status: COMPLETED Source: [place] [address]:08 AM [facility] REPOSITORY HNO ID: [id number] Author: Morteza Smart Service: Vascular Medicine Author [...] 800 mg ORAL TID w MEALS HYDROmorphone 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 0.5 mg/mL in NaCl 0.9% 100 mL [...] lower extremity fistula, per vasc surgery in [facility] surgically created, and no need for intervention [...] as DVT prophylaxis => One of our planting machine operator will come to wrap her legs today => Please avoid all heparin or heparin-related products SIGNATURE: Linnette Almendarez MD PATIENT NAME: Paloma Cannon DATE: October 28, 2017 TIME: 6:58 AM PAGER/CONTACT #: [phone] [facility] STAFF PHYSICIAN NOTE OF PERSONAL INVOLVEMENT [...] AM CBC Collected: 10/28/2017 Status: F Source: [place] 6:06 AM [facility] REPOSITORY TYPE CODE TESTS RESULT OUT [...] nRBC 1.23 Performed By: #### CBC #### [facility] [address] [place], [place] [address] BASIC METABOLIC PANL Collected: 10/28/2017 Status: F Source: [place] 4:01 AM [facility] REPOSITORY TYPE CODE TESTS RESULT OUT OF REFERENCE UNITS RANGE LAB GLU 74-99 mg/dL Glucose 92 Result Comment: The [place] [employer] (ADA) provides guidance for cutoff [...] Standards of Medical Care in Diabetes 2016, [place] [employer]. Diabetes Care. 2016.39(Suppl 1). LAB [...] Performed By: #### BMP, MG1, PHOS #### [facility] [address] [place], [place] [address] MAGNESIUM Collected: 10/28/2017 Status: F Source: [place] 4:01 AM [facility] REPOSITORY TYPE CODE TESTS RESULT OUT OF REFERENCE UNITS RANGE LAB MG 1.7-2.3 mg/dL Magnesium 2.0 Performed By: #### BMP, MG1, PHOS #### [facility] [address] [place], [place] [address] PHOSPHORUS Collected: 10/28/2017 Status: F Source: [place] 4:01 AM [facility] REPOSITORY TYPE CODE TESTS RESULT OUT OF REFERENCE UNITS RANGE LAB PHOS 2.7-4.8 mg/dL Phosphorus 4.3 Performed By: #### BMP, MG1, PHOS #### [facility] [address] [place], [place] [address] CBC Collected: 10/28/2017 Status: F Source: [place] 12:05 AM [facility] REPOSITORY TYPE CODE TESTS RESULT OUT [...] nRBC 1.34 Performed By: #### CBC #### [facility] [address], [place] [address] CBC Collected: 10/27/2017 Status: F Source: V[place]ONIA 8:10 PM [facility] REPOSITORY TYPE CODE TESTS RESULT OUT [...] nRBC 1.07 Performed By: #### CBC #### [place] [address] MAGNESIUM Collected: 10/27/2017 Status: F Source: V[place]ONIA 4:23 [facility] REPOSITORY TYPE CODE TESTS RESULT OUT OF REFERENCE UNITS RANGE LAB MG 1.7-2.3 mg/dL Magnesium 2.1 Performed By: #### MG1, PHOS #### [facility] [address] [place] [address] PHOSPHORUS Collected: 10/27/2017 Status: F Source: VILONIA 4:[address] [place] [address] REPOSITORY TYPE CODE TESTS RESULT OUT OF REFERENCE UNITS RANGE LAB PHOS 2.7-4.8 mg/dL High Phosphorus 5.4 Performed By: #### MG1, PHOS #### [place] [id number] FONDAPARINUX ASSAY Collected: 10/27/2017 Status: F Source: [place] 4:23 [facility] REPOSITORY TYPE CODE TESTS RESULT [...] (body weight >100 kg) once daily, the btqr-snsrcq-jktjpuov doses provide similar mean steady-state peaks and minimum plasma concentrations across all body weight categories. The mean peak steady-state plasma concentration is in the range of 1.20 to 1.26 mg/L. In these patients, the mean minimum steady-state plasma concentration is in the range of 0.46 to 0.62 mg/L. (Prescribing information for Arixtra from [employer], April 2010) Note: The fondaparinux assay is performed by an anti-Xa methodology and that comcomitant therapy with unfractionated or low molecular weight heparin could falsely elevate the fondaparinux levels. Performed By: #### FONDXA #### [facility] [address], [place] [address] CONSULT Observed: 10/27/2017 Status: COMPLETED Source: V[place]ON[place] 12:49 PM [facility] REPOSITORY O ID: [id number] Author: Norma Macias Service: Nephrology Author Type: Physician Type: [...] Medications Prescriptions Prior to Admission: [] HYDROmorphone 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 CLINICIAN DOSE 0.5 mg/mL Inject 0.8 mL [...] 800 mg ORAL TID w MEALS HYDROmorphone 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 0.5 mg/mL in NaCl 0.9% 100 mL [...] October 26, 2017 TIME: 9:04 AM PAGER: [phone] Addendum Was started on CRRT last night with 3 K bath, Qd 2500 cc/hr, currently running well, UF at 100 cc/hr. Catherine Oh MD Fellow Nephrology and Hypertension Pager: [phone] October 27, 2017 9:18 AM Staff note: [...] 2017 PROGRESS Observed: 10/27/2017 Status: COMPLETED Source: [place] 12:30 PM [facility] REPOSITORY O ID: [id number] Author: Destinee Flores MD Service: Critical Care [...] and Moving all extremities Infusion Medications HYDROmorphone 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 0.5 mg/mL NaCl 0.9% Last Rate: 30 [...] Peripheral neuropathy - post-thrombotic syndrome Transferred from [place] for ongoing L RP bleeding. Major Interval Events: 10/26: Transferred from [place]. Hgb down to 5.5. CTA showing active [...] contrast, now requiring dialysis First HD at [place] on 10/25 with tunneled dialysis catheter placement [...] IR emobolization of left L3 artery at [facility] on 10/23 IR embolization of left L2 and L3 arteries on 10/26 Current Assessment AND Plan Assessment: secondary to anticoagulation PLAN: - Monitor CBC and transfuse for Hgb<7 - Premedicate for transfusions - Hold anticoagulation - 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 pump with dilaudid for pain control of L sided pain related to RP bleed Right groin pain 10/27/2017 - Present Overview C/o acute pain this morning, access site for embolization at [place], no erythema or induration appreciated on exam, [...] 27, 2017 TIME: 12:30 PM PAGER/CONTACT #: [phone] [facility] STAFF PHYSICIAN NOTE OF PERSONAL INVOLVEMENT IN CARE I have reviewed the progress note obtained and documented by the nurse practitioner/physician bankruptcy assistant and I personally participated in the [...] ? SIGNATURE: Destinee Flores MD [facility] PAGER:[phone] DATE of SERVICE: October 27, 2017 TIME of SERVICE: 8:[address] ABD/PEL WO IVCON Observed: 10/27/2017 Status: F Source: [place] 12:21 PM [facility] REPOSITORY * * *Final Report* * * DATE OF EXAM: Oct 27 2017 12:21PM [facility] - CT ABD/PEL WO IVCON / [...] ATELECTASIS/EDEMA WITH AN INFECTIOUS/INFLAMMATORY PROCESSES NOT EXCLUDED. Dopeman: MURTAZA Transcribe Date/Time: Oct 27 2017 12:41P Dictated by : SANCHEZ WHITE MD This examination was interpreted and the report reviewed and electronically signed by: LYDIA FARIA DO on Oct 27 2017 4:26PM EST [id number] PROGRESS Observed: 10/27/2017 Status: COMPLETED Source: [place] 12:12 PM [facility] REPOSITORY HNO ID: [id number] Author: Allyson Goodson (Ct) Service: Radiology Author Type: Clinical Shipping Supervisor Type: Progress Notes Filed: 10/27/2017 12:12 PM [...] PM CBC Collected: 10/27/2017 Status: F Source: [place] 11:35 AM [facility] REPOSITORY TYPE CODE TESTS RESULT OUT [...] nRBC 0.57 Performed By: #### CBC #### [facility] [address] [place], [place] [address] CONSULT PROG Observed: 10/27/2017 Status: COMPLETED Source: [place] 10:11 AM [facility] REPOSITORY HNO ID: [id number] Author: Morteza Smart Service: Vascular Medicine Author [...] 800 mg ORAL TID w MEALS HYDROmorphone 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 0.5 mg/mL in NaCl 0.9% 100 mL [...] oz) SpO2 95% BMI 44.95 kg/m2 [facility] at bedside General Appearance: Less pale. Alert. [...] of a large lower extremity fistula, per vas surgery in [place] surgically created, and no need for intervention [...] as DVT prophylaxis => One of our planting machine operator will come to wrap her legs today => Please avoid all heparin or heparin-related products SIGNATURE: Linnette Almendarez MD PATIENT NAME: Paloma Cannon DATE: October 27, 2017 TIME: 11:13 AM PAGER/CONTACT #: [phone] . CBC Collected: 10/27/2017 Status: F Source: [place] 6:30 AM [facility] [place] REPOSITORY TYPE CODE TESTS RESULT OUT OF [...] nRBC 0.57 Performed By: #### CBC #### [facility] [address], [place] [address] HEMOGLOBIN Collected: 10/27/2017 Status: F Source: [place] 2:50 AM [facility] REPOSITORY TYPE CODE TESTS RESULT OUT OF REFERENCE UNITS RANGE LAB HGB 11.5-15.5 g/dL Low Hemoglobin 6.6 Performed By: #### HGB #### [facility] [address] [place] [address] CBC Collected: 10/27/2017 Status: F Source: [place] 1:00 AM [facility] REPOSITORY TYPE CODE TESTS RESULT OUT [...] By: #### CBC, BMP, MG1, PHOS #### [facility] [address], [place] [address] BASIC METABOLIC PANL Collected: 10/27/2017 Status: F Source: [place] 1:00 [facility] REPOSITORY TYPE CODE TESTS RESULT OUT OF REFERENCE UNITS RANGE LAB GLU 74-99 mg/dL High Glucose 118 Result Comment: The [place] [employer] (ADA) provides guidance for cutoff [...] Standards of Medical Care in Diabetes 2016, [place] [employer]. Diabetes Care. 2016.39(Suppl 1). LAB [...] By: #### CBC, BMP, MG1, PHOS #### [facility] [address] [place], [place] [address] MAGNESIUM Collected: 10/27/2017 Status: F Source: [place] 1:00 [facility] REPOSITORY TYPE CODE TESTS RESULT OUT OF REFERENCE UNITS RANGE LAB MG 1.7-2.3 mg/dL Magnesium 2.1 Performed By: #### CBC, BMP, MG1, PHOS #### [facility] [address] [place], [place] [address] PHOSPHORUS Collected: 10/27/2017 Status: F Source: [place] 1:00 AM [facility] REPOSITORY TYPE CODE TESTS RESULT OUT OF REFERENCE UNITS RANGE LAB PHOS 2.7-4.8 mg/dL High Phosphorus 7.1 Performed By: #### CBC, BMP, MG1, PHOS #### [facility] [address] [place], [place] [address] PLAN OF CARE Observed: 10/26/2017 Status: COMPLETED Source: [place] 9:57 PM [facility] REPOSITORY HNO ID: [id number] Author: Daysi Kohli Service: Critical Care Author [...] for immediate therapy/AC at this time. Daysi Kohli, CBC Collected: 10/26/2017 Status: F Source: [place] 8:20 PM [facility] REPOSITORY TYPE CODE TESTS RESULT OUT [...] Performed By: #### CBC, MG1, PHOS #### [facility] [address] [place] [address] MAGNESIUM Collected: 10/26/2017 Status: F Source: [place] 8:20 PM [facility] REPOSITORY TYPE CODE TESTS RESULT OUT OF REFERENCE UNITS RANGE LAB MG 1.7-2.3 mg/dL Magnesium 2.1 Performed By: #### CBC, MG1, PHOS #### [facility] [address] [place] [address] PHOSPHORUS Collected: 10/26/2017 Status: F Source: [place] 8:20 PM [facility] REPOSITORY TYPE CODE TESTS RESULT OUT OF REFERENCE UNITS RANGE LAB PHOS 2.7-4.8 mg/dL High Phosphorus 8.5 Performed By: #### CBC, MG1, PHOS #### [facility] [address] [place] [address] BRIEF OP NOT Observed: 10/26/2017 Status: COMPLETED Source: [place] 5:59 PM [facility] REPOSITORY HNO ID: [id number] Author: Yong Rosales Service: Interventional Radiology Author Type: Physician Type: Brief Op Note Filed: 10/26/2017 6:01 PM Note Text: BRIEF OPERATIVE / PROCEDURE NOTE LOG ID: [id number] SURGERY/PROCEDURE DATE: 10/26/2017 INCISION/PROCEDURE START TIME: 3:58 PM INCISION CLOSE/PROCEDURE END TIME: 5:01 PM SURGEON(S)/PROCEDURALIST(S) AND MOLD DESIGNER(S): Surgeon(s) and Role: * Yong Rosales - [...] 26, 2017 TIME: 5:59 PM PAGER/CONTACT #: [phone] IR VISCERAL EMBOLIZATION Observed: 10/26/2017 Status: F Source: [place] 5:01 PM [facility] REPOSITORY * * *Final Report* * * DATE OF EXAM: Oct 26 2017 5:01PM [facility] 0826 - IR VISCERAL EMBOLIZATION / PROCEDURE [...] Kerma: 837.3 mGy Dose Area Product (DAP): 482632.0 mGy*cm2 Fluoro Time: 19:24 min:sec Radiation dose [...] into the aorta followed by a 5 Wallisian vascular sheath which was attached to normal [...] to terminate a 2 x 3 mm cher-ae heights microcoils followed by a single 3 mm [...] Specimens: 0: ATTENDING RADIOLOGIST: Yong Rosales M.D. MOLD DESIGNER: None The procedure was performed by the: attending radiologist, without an bankruptcy assistant. The attending radiologist performed the following [...] ADDITIONAL EMBOLIZATION OF LEFT L3 DESCRIBED ABOVE. Dopeman: [facility] Transcribe Date/Time: Oct 27 2017 4:46A Dictated by : YONG ROSALES MD This examination was interpreted and the report reviewed and electronically signed by: YONG ROSALES MD on Oct 27 2017 5:07AM EST PT ED Observed: 10/26/2017 Status: COMPLETED Source: [place] 3:34 PM [facility] REPOSITORY HNO ID: [id number] Author: Anahi (Jeff) JEFF Castrejon Service: Nursing [...] Signed By: ANAHI CASTREJON RN In Department: HOSP MAIN G060 FONDAPARINUX ASSAY Collected: 10/26/2017 Status: F Source: [place] 2:26 PM [facility] REPOSITORY TYPE CODE TESTS RESULT OUT [...] (body weight >100 kg) once daily, the cmme-quxqzp-egvygdjt doses provide similar mean steady-state peaks and minimum plasma concentrations across all body weight categories. The mean peak steady-state plasma concentration is in the range of 1.20 to 1.26 mg/L. In these patients, the mean minimum steady-state plasma concentration is in the range of 0.46 to 0.62 mg/L. (Prescribing information for Arixtra from [place], April 2010) Note: The fondaparinux assay is performed by an anti-Xa methodology and that comcomitant therapy with unfractionated or low molecular weight heparin could falsely elevate the fondaparinux levels. Performed By: #### FONDXA #### [facility] [address], [place] [address] CBC Collected: 10/26/2017 Status: F Source: [place] 1:23 PM [facility] REPOSITORY TYPE CODE TESTS RESULT OUT [...] nRBC 0.26 Performed By: #### CBC #### [facility] [address] [place] [id number] PROGRESS Observed: 10/26/2017 Status: COMPLETED Source: [place] 12:39 PM [facility] REPOSITORY HNO ID: [id number] Author: Destinee Flores MD Service: Critical Care [...] 114.3 kg (251 lb 15.8 oz) (10/26/17 06) Admit Weight: 112.2 kg (247 lb 5.7 oz) (10/25/172326) DIET NPO Lines, Drains, and Airways Line [...] and Moving all extremities Infusion Medications HYDROmorphone 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 0.5 mg/mL NaCl 0.9% Last Rate: 30 [...] Peripheral neuropathy - post-thrombotic syndrome Transferred from [place] for ongoing L RP bleeding. Major Interval Events: New Events (last 24hrs): 10/26: Transferred from [place]. Hgb down to 5.5. CTA showing active [...] IR emobolization of left L3 artery at [place]. Transferred 10/26 for further management. Current Assessment AND Plan Assessment: secondary to anticoagulation PLAN: - IR consulted - CTA abdomen/pelvis - IR embolization - Monitor CBC and transfuse as needed - Premedicate for transfusions - Hold anticoagulation - 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 pump with dilaudid for pain control of L sided pain related to RP bleed Severe CAPRICE (acute kidney injury) (HCC) 10/08/2015 - Present Overview CAPRICE on CKD III, 2/2 contrast, now requiring dialysis First HD at [facility] on 10/25 with tunneled dialysis catheter placement [...] 26, 2017 TIME: 12:39 PM PAGER/CONTACT #: [phone] [facility] STAFF PHYSICIAN NOTE OF PERSONAL INVOLVEMENT IN CARE I have reviewed the progress note obtained and documented by the nurse practitioner/physician bankruptcy assistant and I personally participated in the [...] ? SIGNATURE: Destinee Flores MD [facility] PAGER:[phone] DATE of SERVICE: October 26, 2017 TIME of SERVICE: 8:17 AM NUTRITION Observed: 10/26/2017 Status: COMPLETED Source: [place] 12:23 PM [facility] REPOSITORY [facility] ID: [id number] Author: Edel Guillen Service: NST-Nutrition Support Team [...] no intervention recommended. ?? She presented to [facility] ED on 10/23 due to severe stabbing left-sided abdominal pain radiating to left arm/leg. She had a CT abdomen that showed extensive left retroperitoneal hemorrhage with mass effect to the left kidney, and less extensive hemorrhage along the surface of the spleen and along the mesentery. She was transferred to [place] as ICU at [facility] was full. Present Diet Order: NPO Nutritional Intake Prior to Admission: <75% estimated energy needs over the past 1 month(s) Last [facility] admit 4/6 poor appetite/intakes reported. Per d/w patient today, [...] (257 lb 15 oz) 10/18/2016 114.306 kg [place] body weight 52.3 kg Estimated kilocalorie needs: 9337-6923 kilocalories determined by 25-30 kcal/kg ideal body weight Estimated protein needs: 78-105 grams determined by 1.5-2.0 g/kg [place] weight Estimated fluid needs: per MD NUTRITION [...] 800 mg ORAL TID w MEALS HYDROmorphone 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 0.5 mg/mL in NaCl 0.9% 100 mL [...] Re-assess/15 min 3 units SIGNATURE: Edel Guillen, QUINTEN, LD[facility] PATIENT NAME: Paloma Cannon DATE: October 26, 2017 TIME: 12:23 PM PAGER: [phone] HISTORY PHYSICAL Observed: 10/26/2017 Status: COMPLETED Source: [place] 10:58 AM [facility] REPOSITORY HNO ID: [id number] Author: Fredi Dykes Service: Interventional Radiology Author [...] 24 cm left retroperitoneal Hematoma, transferred to [place] for angiography by Dr. Gr which showed L3 lumbar arterial extravasation, embolized on 10/23/2017. The patient was transferred to [facility] for further management and pheresis, but has [...] fully AxO Abd: Soft, left abdomen and brneda flank/back are tender and sore to palpation [...] October 26, 2017 TIME: 10:58 AM PAGER: [phone] NURSING PROG Observed: 10/26/2017 Status: COMPLETED Source: [place] 10:55 AM [facility] REPOSITORY HNO ID: [id number] Author: Lili Kelley (Rn) JEFF Juarez Service: [...] AM PROGRESS Observed: 10/26/2017 Status: COMPLETED Source: [place] 10:55 AM [facility] REPOSITORY HNO ID: [id number] Author: Allyson Goodson (Ct) Service: Radiology Author Type: Clinical Shipping Supervisor Type: Progress Notes Filed: 10/26/2017 10:55 AM [...] ABD/PELV WO/W Observed: 10/26/2017 Status: F Source: [place] IVCON 10:55 AM [facility] REPOSITORY * * *Final Report* * * DATE OF EXAM: Oct 26 2017 10:55AM [facility] 0467 - CTA ABD/PELV WO/W IVCON / [...] Daysi ARAGON on 10/26/2017 at 8 p.m.. Dopeman: MURTAZA Transcribe Date/Time: Oct 26 2017 11:55A Dictated by : YONG ROSALES MD This examination was interpreted and the report reviewed and electronically signed by: YONG ROSALES MD on Oct 26 2017 7:59PM EST [id number] CASE MGT INIT Observed: 10/26/2017 Status: COMPLETED Source: SHELIA PAL 9:40 AM [facility] [place] REPOSITORY HNO ID: [id number] Author: Lisseth Coto (Sw) Service: Social Work Author Type: Workday Director Type: Care Mgt Initial Assessment Filed: 10/26/2017 1:51 PM Note Text: CARE MANAGEMENT: ASSESSMENT AND DISCHARGE PLAN SERVICE DATE: 10/26/2017 SERVICE TIME: 9:15A.M. 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 No Advance Directive: Current Advance Directive: None Household Refrigeration Mechanic Assisted with AD Completion: Yes Action: Education [...] Wheelchair Has the Patient Been in a [facility] Facility in the Past 30 days? No SOCIAL: Living Arrangement: Home Lives With: Spouse Financial Resources: Disabled Primary Contact: Extended Emergency Contact Information Primary Emergency Contact: Davis,Morteza [place] Relation: Spouse Supportive: Yes Other Important Patient [...] 0 I feel financially burdened by my djj-ga-rgjvvv expenses for my prescription medication: Disagree completely [...] at home. The Oxygen supplying company is [employer] . Pt;s medical goal is for bleeding to stop, and live a normal life. Pt needs are TBD. SIGNATURE: WINSTON Connors PATIENT NAME: Paloma Cannon DATE: October 26, 2017 TIME: 9:40 AM PAGER/CONTACT #: [phone] I have reviewed and agree with the above assessment. Pt admitted to MICU from OSH for ongoing L RP bleeding. Pt's Hgb down to 5.5, CTA showing active extravasation, plan on IR for further management if needed. Possible IHD vs CVVHD. Needs TBD. SW will continue to follow. SIGNATURE: Lisseth Coto SURGERY AIDE, ELECTRONIC MAINTENANCE SUPERVISOR PATIENT NAME: Paloma Cannon DATE: October 26, 2017 TIME: 9:40 AM PAGER/CONTACT #: [phone] CONSULT Observed: 10/26/2017 Status: COMPLETED Source: [place] 8:37 AM [facility] [place] REPOSITORY HNO ID: [id number] Author: Aj Keenan Service: Hematology Author Type: Physician Type: Consults Filed: 10/27/2017 6:53 PM Note Text: [facility] Initial Consult Note PATIENT NAME: Paloma Cannon [facility] #: [id number] ATTENDING PHYSICIAN: Dr. Keenan DATE OF SERVICE: 10/26/2017 Room/Bed: [place] [address]/[place] [address] REASON FOR CONSULT: Antiphospholipid Antibody Syndrome Consulting [...] Fondaparinux 7.5mg and Prednisone. She presented to [place] ED on 10/23 due to severe stabbing left-sided abdominal pain radiating to left arm/leg. She had a CT abdomen that showed extensive left retroperitoneal hemorrhage with mass effect to the left kidney, and less extensive hemorrhage along the surface of the spleen and along the mesentery. She was transferred to [place] as ICU at [facility] was full. ? ICU course at [place]: 10/23 Hb 4.8, received 2 units of [...] of pRBC ? She was transferred to [facility] for further management. Patient is in MICU. [...] nephrotoxic agents - DVT (deep venous thrombosis) ([facility]) - Elevated CA-125 11/30/2013 244 - Essential hypertension 10/08/2015 Stable on home medications Plan: -continue to monitor on home meds - 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 Bivalirudin to Warfarin bridging - HIT (heparin-induced thrombocytopenia) ([facility]) - Nontoxic multinodular goiter - Obese [...] 800 mg ORAL TID w MEALS HYDROmorphone 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 0.5 mg/mL in NaCl 0.9% 100 mL [...] Lymph 1.00 - 4.00 k/uL 0.22 (L) Owen% % 5.0 Abs Owen <0.87 k/uL 1.09 (H) Eosin% % 0.0 Abs Eosin <0.46 k/uL 0.00 Baso% % 0.0 Abs Baso <0.11 k/uL 0.00 NRBC 0 /100 WBC 1 (H) Absolute nRBC <0.01 k/uL 0.22 (H) 0.22 (H) 0.26 (H) 0.19 (H) 0.33 (H) 0.57 (H) 0.57 (H) ANC(includeSEG+BAND) k/uL 20.29 Line [place]% % 1.0 Anisocytosis Present Left Shift Present [...] IR guided intervention (initially on 10/23 at [facility] and 10/26 here at [facility]. # Antiphospholipid antibody syndrome Extensive left retroperitoneal [...] MD Fellow, Hematology and Medical Oncology Pager: [phone] STAFF ADDENDUM: I have reviewed the history, [...] Her INR was 1.0 on admission to [facility]. She had severe left flank/abdominal pain, and [...] and dialysis begun. Patient then transferred to [facility]. Repeat embolization was necessary yesterday when her [...] 2 doses and then had a possible [place]. 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 ? Will recheck the fondaparinux level which has likely come down further. Okay to restart cyclophosphamide, plasmapheresis as scheduled. Will follow. ? [place] [phone] CONSULT Observed: 10/26/2017 Status: COMPLETED Source: [place] 7:38 AM [facility] REPOSITORY HNO ID: [id number] Author: Morteza Smart Service: Vascular Medicine Author [...] Received 7u PRBC and [facility] [place] [facility] further management. Will receive two more [...] to Warfarin bridging - HIT (heparin-induced thrombocytopenia) ([facility]) - Nontoxic multinodular goiter - Obese [...] tablet Take 1 tablet by mouth every Monday,Monday,Ishmael. fluticasone (FLONASE) 50 mcg/actuation nasal spray Use [...] 800 mg ORAL TID w MEALS HYDROmorphone 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 0.5 mg/mL in NaCl 0.9% 100 mL [...] with urination: No Blood in urine: No COOKER LOADER: Abnormal vaginal bleeding: N/A History of loss: [...] lower extremity fistula, per vasc surgery in [place] surgically created, and no need for intervention [...] products SIGNATURE: Linnette Almendarez MD PATIENT NAME: Paloam Cannon DATE: October 26, 2017 TIME: 7:39 AM PAGER/CONTACT #: [phone] . HEMOGLOBIN Collected: 10/26/2017 Status: F Source: V[place]ON[place] 6:40 AM [facility] REPOSITORY TYPE CODE TESTS RESULT OUT OF REFERENCE UNITS RANGE LAB HGB 11.5-15.5 g/dL Low Alert Hemoglobin 5.5 Result Comment: Result checked and verified No clot detected. Called to and read back by: Gemma Ochoa G60 YU 10/26/17 Jerardo Munoz Performed By: #### HGB #### [place] [address] LACTATE Collected: 10/26/2017 Status: F Source: [place] 2:29 AM [facility] REPOSITORY TYPE CODE TESTS RESULT OUT OF REFERENCE UNITS RANGE LAB LACT 0.5-2.2 mmol/L Lactate 1.5 Performed By: #### LACT #### [place] [address] TYPE AND SCREEN Collected: 10/26/2017 Status: F Source: [place] 1:15 AM [facility] REPOSITORY TYPE CODE TESTS RESULT OUT OF REFERENCE UNITS RANGE LAB %ABR B ABO/RH(D) POSITIVE LAB % Antibody POS Screen Performed By: #### TSCR #### [place] [address] PROTIME Collected: 10/26/2017 Status: F Source: [place] 12:20 AM [facility] REPOSITORY TYPE CODE TESTS RESULT OUT OF RANGE REFERENCE UNITS LAB PSEC 9.7-13.0 sec PT Sec 10.5 LAB INR 0.9-1.3 PT INR 1.0 Result Comment: Vitamin K Antagonist (VKA) Therapeutic Range: INR 2 to 3 (Target INR of 2.5) Note: For patients treated with VKA drugs, such as warfarin, the [employer] 2012 Guideline recommends [...] Chest 2012, 141:7S-47S Diogenes RESENDIZ, et al. [facility] 2017, 70: 252-289 Performed By: #### PT, PTT, CMP, PHOS, CBCDIF #### [facility] [address] [place], [place] [address] APTT Collected: 10/26/2017 Status: F Source: [place] 12:20 AM [facility] REPOSITORY TYPE CODE TESTS RESULT OUT [...] #### PT, PTT, CMP, PHOS, CBCDIF #### [facility] [address] [place], [place] [address] COMP METABOLIC PANEL Collected: 10/26/2017 Status: F Source: [place] 12:20 AM [facility] REPOSITORY TYPE CODE TESTS RESULT OUT [...] mg/dL Glucose High 105 Result Comment: The [place] [employer] (ADA) provides guidance for cutoff [...] Standards of Medical Care in Diabetes 2016, [place] [employer]. Diabetes Care. 2016.39(Suppl 1). LAB [...] #### PT, PTT, CMP, PHOS, CBCDIF #### [facility] [address] [place], [place] [address] PHOSPHORUS Collected: 10/26/2017 Status: F Source: [place] 12:20 AM [facility] REPOSITORY TYPE CODE TESTS RESULT OUT OF REFERENCE UNITS RANGE LAB PHOS 2.7-4.8 mg/dL High Phosphorus 8.4 Performed By: #### PT, PTT, CMP, PHOS, CBCDIF #### [facility] [address] [place], [place] [address] CBC AND DIFFERENTIAL Collected: 10/26/2017 Status: F Source: [place] 12:20 AM [facility] REPOSITORY TYPE CODE TESTS RESULT [...] Abs Lymph 0.22 Low LAB AMONO % Owen% 5.0 LAB AAMONO <0.87 k/uL Abs Owen 1.09 High LAB AEOS % Eosin% 0.0 LAB AAEOS <0.46 k/uL Abs Eosin 0.00 LAB ABASO % Baso% 0.0 LAB AABASO <0.11 k/uL Abs Baso 0.00 LAB NRBC 0 /100 WBC NRBCs 1 High LAB ABNRBC <0.01 k/uL Absolute nRBC 0.22 High LAB ABIMMG k/uL 20.29 ANC(includeSEG+BAND ) LAB AMETA % Line [place]% 1.0 LAB ANIIMI Anisocytosis Present LAB LFTIMI Left Shift Present LAB OVAIMI Ovalocytes Few LAB POLIMI Polychromasia Slight LAB PLTEST Platelet Estimate Platelet estimate decreased LAB DTYP DTYPE Manual Diff Performed By: #### PT, PTT, CMP, PHOS, CBCDIF #### [facility] [address] [place], [place] [address] STAPH AUREUS PCR Collected: 10/26/2017 Status: F Source: [place] 12:20 AM [facility] REPOSITORY TYPE CODE TESTS RESULT OUT OF REFERENCE UNITS RANGE LAB SASRC Nasal S aureus Spec Source LAB MRSRES Negative for MRSA MRSA by PCR. PCR LAB SARES Negative for Staph Staphylococcus aureus PCR aureus by PCR. Performed By: #### SAPCR #### [facility] [address] [place], [place] [address] HISTORY PHYSICAL Observed: 10/26/2017 Status: COMPLETED Source: [place] 12:09 AM [facility] REPOSITORY HNO ID: [id number] Author: Aline Engle Service: Critical Care Author [...] d/sandy on PO prednisone. She presented to [place] ED on 10/23 due to severe stabbing left-sided abdominal pain radiating to left arm/leg. She had a CT abdomen that showed extensive left retroperitoneal hemorrhage with mass effect to the left kidney, and less extensive hemorrhage along the surface of the spleen and along the mesentery. She was transferred to [place] as ICU at [facility] was full. ICU course at [facility]: 10/23 Hb 4.8, received 2 units of [...] morphine had no affect and even dilaudid 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 was insufficient, may need to readdress, dilaudid 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 for now Peripheral neuropathy: gabapentin 200 q12, [...] now requiring dialysis - first HD at [facility] on 10/25 with tunneled dialysis catheter placement [...] Medications/Allergies Prescriptions Prior to Admission: [] HYDROmorphone 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 CLINICIAN DOSE 0.5 mg/mL Inject 0.8 mL [...] bilateral iliac stents and IVC endograft, on termite control technician AC with warfarin, plasmapharesis q2 weeks, prednisone 5 mg qD), 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 She was discharged yesterday after she stabilized and reached her home around 6 PM. She started having severe left sided abdominal pain under her breast radiating down to thigh region and went back to [facility] ED. She had a CT abdomen at outside hospital. Showed extensive L. retroperitoneal Hemorrhage with mass effect to left kidney. Also less extensive hemorrhage present along the surface of the spleen and along mesentery. Transferred to MICU as [facility] had no beds. On arrival to MICU patient complained of severe excruciating pain in the left abdomen, 10/10 in intensity, sharp in quality radiating from Left breast to thigh region. Pain is constant per patient and only minimally improved with Dilaudid patient received in H. ICU course: HG 4.8, lethargic c/o left flank pain poor relief with IV fentanyl. BP low but acceptable (SBP 100-120) Pt received 2 units emergency blood, IR consulted, underwent urgent L RP angiogram, found to have bleeding from multiple foci of the left L3 artery, -> embolized. Incidential finding of large IMPORT/EXPORT ADMINISTRATOR -CFV fistula, Vascular Surgery consulted -. fistula [...] repet bmp 9PM Family requests transfer to [facility] . AC on hold in setting acute bleed 10/25: IV Lasix and Demedex diuretics did not improve u/o. Received 2 units PRBCs overnight with total of 7 units PRBCs since admission to . Is premedicated with diphenhydramine AND solu-cortef prior to each infusion of PRBCs.Nephrology consult to Dr Crandall who ordered HD through [facility] port. Having problems with pain control. Has Dilaudid 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. Added scheduled Percocet 1 q6h. Will continue [...] Gabapentin, reduced dose given renal failure -dilaudid 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 -0.2mg q 20 minutes no basal -percocet [...] bilateral iliac stents and IVC endograft, on termite control technician AC with warfarin, plasmapharesis q2 weeks, prednisone 5 mg qD); aslo has Hx of HIT Dx 2013 by [facility]. discharged 10/22 on fondaparinux currently on hold Plan: Consulted hematology, appreciate recs --plasmapheresis q 2 weeks and prednisone 80 mg daily; a prednisone taper by 20 mg every four days (with maintenance of prednisone 5 mg daily) plasmapheresis due Monday will transfer to [facility] by Monday 10/30 Prophylactic: - PPI -a/c held, scd's IMPORT/EXPORT ADMINISTRATOR -CFV fistula, Vascular Surgery consulted -. fistula created in 2013 no need for intervention FULL CODE difficult airway seen and discussed with Dr Wyatt On transfer to [facility] to [facility] Dr Womack contacting MICU staff to discuss transfer No [facility] bed avail. today 10/25. SIGNATURE: Aline Engle MD, PGY-1 PATIENT NAME: Paloma Cannon DATE: October 26, 2017 TIME: 12:09 AM PAGER: [phone] Note: These recommendations are not final until staffed by provider [facility] STAFF PHYSICIAN NOTE OF PERSONAL [...] overload Poor appetite due to edema Requesting vocational rehab consultant involvement from those involved on regular [...] services: 50 minutes Britney Brady MD Respiratory [place] Beeper Number: [id number] Date of Service: 10/26/2017 PLAN OF CARE Observed: 10/25/2017 Status: COMPLETED Source: [place] 10:35 PM [facility] OTHER CAMPUS REPOSITORY HNO ID: [id number] Author: Carito Ferrari(Pharmacist) Service: Pharmacy Author Type: [...] PHARMACIST October 26, 2017 11:43 AM Pager: [phone] 10/26/2017 11:43 AM Medication List START taking [...] doctor about these medications HYDROmorphone 0.5 mg/mL 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 CLINICIAN DOSE 0.5 mg/mL Inject 0.8 mL intravenously one time only for 1 dose. Ask about: Should I take this medication? Where to Get Your Medications Information about where to get these medications is not yet available ! 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 She was discharged after she stabilized but developed severe left sided abdominal pain radiating down to thigh. CT of abd at [facility] showed extensive L. retroperitoneal hemorrhage with mass effect to left kidney. Hemorrhage also to surface of spleen and mesentery. Transferred to MICU as [facility] had no beds. In , received 2 units PRBC AND underwent urgent L. RP angiogram in IR. Hemorrhage from multiple foci of L L3 artery embolized. Oliguric CAPRICE probably 2/2 contrast nephropathy. Family requests transfer to [facility] for scheduled plasmapheresis. DIAGNOSIS: Active Problems: CAPRICE (acute kidney injury) (HCC) HTN (hypertension) History of heparin-induced thrombocytopenia Peripheral neuropathy APS (antiphospholipid syndrome) ([facility]) Recurrent deep vein thrombosis (DVT) ([facility]) CKD (chronic kidney disease) stage 3, GFR 30-59 ml/min (HFpEF) heart failure with preserved ejection fraction ([facility]) Obesity, Class III, BMI >= 40 (morbid obesity) E66.01 Retroperitoneal bleeding Acute blood loss anemia Retroperitoneal hemorrhage Malnutrition of mild degree (HCC) Resolved Problems: * No resolved hospital problems. [...] O/S First): Discharged as direct admit to [facility] for scheduled Plasmapheresis DISCHARGE MEDICATION: Discharge Medication List as of 10/25/2017 10:19 PM START taking these medications HYDROmorphone 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 CLINICIAN DOSE 0.5 mg/mL Inject 0.8 mL [...] for Stopping: FUTURE APPOINTMENTS: Q2 weeks plasmapheresis [facility] TIME OF CARE (Use first blank if not applicable): TIME OF CARE: Discharge Management: I personally spent greater than 30 minutes involved in the discharge management of this patient. SIGNATURE: Navi Giang APRN.CNP PATIENT NAME: Paloma Cannon DATE: November 06, 2017 TIME: 4:36 PM PAGER/CONTACT #: [phone] NURSING PROG Observed: 10/25/2017 Status: COMPLETED Source: [place] 7:15 PM [facility] REPOSITORY HNO ID: [id number] Author: Kenisha (Rn) JEFF Amaya Service: (none) Author Type: Registered Nurse Type: Nursing Progress Note Filed: 10/25/2017 10:49 PM Note Text: Nursing Progress Note Patient Name: Paloma Cannon [facility] [place] [address]: Report received from day RN. 1999: Assessment complete pt is AANDO x3 and following commands, complaints of flank pain 03/19, encouraged use of 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. Sinus rhythm on the monitor. SpO2 is 100% on 6L NC, will titrate down as able. For complete assessment see flow sheet. 2144: Pt received bed at [facility], [facility] bed 6. Critical Care transport ETA is 1 hour. 2149: Report called to 60 RN Silvio. 2214: Belongings verified with pt. Percocet given early in anticipation of transport. 2220: Critical care transport at bedside, Dilaudid gtt discontinued. 2230: Pt transported off the unit in stable condition. Pt's father Morgan notified of transfer as husbands phone number was not working. This note was completed by: Kenisha Amaya, RN CBC Collected: 10/25/2017 Status: F Source: V[place] 6:14 PM [facility] REPOSITORY TYPE CODE TESTS RESULT [...] MPV REPORT>> Performed By: #### CBC #### [facility] [address] [place] [address] PROGRESS Observed: 10/25/2017 Status: COMPLETED Source: [place] 3:47 PM CLIN[facility] OTHER CAMPUS REPOSITORY HNO ID: [id number] Author: Navi (Sol) Rahat Service: Critical Care Author Type: Nurse Practitioner Type: Progress Notes Filed: 10/25/2017 4:14 PM Note Text: MICU PROGRESS NOTE WITH COORD CARE SERVICE DATE: 10/25/2017 SERVICE TIME: 12:00 Admission Date: 10/23/2017 Day #: 3 in the MICU. 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 She was discharged yesterday after she stabilized and reached her home around 6 PM. She started having severe left sided abdominal pain under her breast radiating down to thigh region and went back to [facility] ED. She had a CT abdomen at outside hospital. Showed extensive L. retroperitoneal Hemorrhage with mass effect to left kidney. Also less extensive hemorrhage present along the surface of the spleen and along mesentery. Transferred to MICU as [facility] had no beds. On arrival to MICU patient complained of severe excruciating pain in the left abdomen, 10/10 in intensity, sharp in quality radiating from Left breast to thigh region. Pain is constant per patient and only minimally improved with Dilaudid patient received in [facility]. ICU course: HG 4.8, lethargic c/o left flank pain poor relief with IV fentanyl. BP low but acceptable (SBP 100-120) Pt received 2 units emergency blood, IR consulted, underwent urgent L RP angiogram, found to have bleeding from multiple foci of the left L3 artery, -> embolized. Incidential finding of large IMPORT/EXPORT ADMINISTRATOR -CFV fistula, Vascular Surgery consulted -. fistula [...] repet bmp 9PM Family requests transfer to [facility] . AC on hold in setting acute bleed 10/25: IV Lasix and Demedex diuretics did not improve u/o. Received 2 units PRBCs overnight with total of 7 units PRBCs since admission to . Is premedicated with diphenhydramine AND solu-cortef prior to each infusion of PRBCs.Nephrology consult to Dr Crandall who ordered HD through [facility] port. Having problems with pain control. Has Dilaudid 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. Added scheduled Percocet 1 q6h. Will continue [...] Gabapentin, reduced dose given renal failure -dilaudid 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 -0.2mg q 20 minutes no basal -percocet [...] bilateral iliac stents and IVC endograft, on termite control technician AC with warfarin, plasmapharesis q2 weeks, prednisone 5 mg qD); aslo has Hx of HIT Dx 2013 by [facility]. discharged 10/22 on fondaparinux currently on hold Plan: Consulted hematology, appreciate recs --plasmapheresis q 2 weeks and prednisone 80 mg daily; a prednisone taper by 20 mg every four days (with maintenance of prednisone 5 mg daily) plasmapheresis due Monday will transfer to [facility] by Monday 10/30 Prophylactic: - PPI -a/c held, scd's IMPORT/EXPORT ADMINISTRATOR -CFV fistula, Vascular Surgery consulted -. fistula created in 2013 no need for intervention FULL CODE difficult airway seen and discussed with Dr Wyatt On transfer to [facility] to [facility] Dr Womack contacting MICU staff to discuss transfer No [facility] bed avail. today 10/25. OBJECTIVE: VITAL SIGNS [...] ORAL q 6 H HYDROmorphone 0.5 mg/mL 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 CLINICIAN DOSE 0.4 mg 0.4 mg INTRAVENOUS [...] 20 mL 20 mL INTRAVENOUS PRN HYDROmorphone 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 0.5 mg/mL in NaCl 0.9% 100 mL INTRAVENOUS CONTINUOUS predniSONE (DELTASONE) tab(s) 80 mg 80 mg ORAL DAILY sulfamethoxazole-trimethoprim 800-160 mg 1 tablet (BACTRIM DS,SEPTRA DS) 1 tablet ORAL -WE hydrocortisone topical cream 1% TOPICAL BID PRN INFUSIONS HYDROmorphone 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 0.5 mg/mL Lines, Drains, and Airways Line [...] Care Time 40 minutes. SIGNATURE: Navi Giang APRN.ELLIOTT PATIENT NAME: Paloma Cannon DATE: October 25, 2017 TIME: 3:47 PM PAGER/CONTACT #: [phone] NURSING PROG Observed: 10/25/2017 Status: COMPLETED Source: [place] 2:25 PM CLINIC OTHER CAMPUS REPOSITORY HNO ID: [id number] Author: Roxane Sauer) JEFF Campbell Service: Nursing Author Type: Registered Nurse Type: Nursing Progress Note Filed: 10/25/2017 4:57 PM Note Text: Nursing Progress Note Patient Name: Paloma Cannon Patient Location: [place] [address]/-ICU-36 Daily Note:0800- Report and SBAR with offgoing RN, see flow sheet for details. MARKLOGIC DEVELOPER updated by offgoing nurse, will review labs etc 0830- Dr Crandall in for rounds, will order HD treatment, informed pt and discussed treatment 0900- Lab sent per order 0920- Supervisory Training Specialist in with MICU team for rounds, updated on status. Pt states pain in Left flank is at 40/10, orders placed for oral pain medication and will give clinician dose of dialudid 1000- Dialysis nurse arrived BS to set up for treatment 1220- Pt complaining of severe pain, rates 20/10, is undergoing HD treatment at this time. Notified Brandi MARKLOGIC DEVELOPER pt is continuously having severe pain, will discuss pain medication orders with police judge 1320- HD treatment completed, PRBC's sent for, will administer solu-cortef and benedryl 1345- heavy assist OOB to recliner, pt weak but able to stand and pivot. 1425- PRBC's started, pt remains in recliner, states pain is somewhat better. Drinking liquid supplements. Received benedry and solu medrol prior to transfusion This note was completed by: Roxane Campbell RN PROGRESS Observed: 10/25/2017 Status: COMPLETED Source: [place] 11:26 AM CLINIC OTHER CAMPUS REPOSITORY O ID: [id number] Author: Allyson Rosas (Tech) Service: Dialysis Author Type: Shipping Supervisor Type: Progress Notes Filed: 10/25/2017 11:27 AM Note Text: PATIENT EDUCATION TOPIC: PATIENT INFORMATION: Plan of Care PATIENT NAME: Paloma Cannon PATIENT LOCATION: [place] [address]/-ICU-36 READINESS TO LEARN COGNITIVE ABILITY: Alert and [...] Rosas PROGRESS Observed: 10/25/2017 Status: COMPLETED Source: [place] 11:22 AM [facility] REPOSITORY HNO ID: [id number] Author: Allyson Rosas (Tech) Service: Dialysis Author Type: Shipping Supervisor Type: Progress Notes Filed: 10/25/2017 12:50 PM [...] CASE MANAGEM Observed: 10/25/2017 Status: COMPLETED Source: [place] 10:52 AM [facility] REPOSITORY HNO ID: [id number] Author: Aria Albarran (Sw) Service: Care Management Author Type: Workday Director Type: Care Mgt Progress Note Filed: 10/25/2017 10:54 AM Note Text: CARE MANAGEMENT PROGRESS NOTE SERVICE DATE: 10/25/2017 SERVICE TIME: 10:52 AM LOS: 2 days Per huddle. Pt is being transferred to [facility]. Potentially before Monday. CM to follow and support. Pt home with spouse. Likely no skilled needs. SIGNATURE: ROBBI Dahl PATIENT NAME: Paloma Cannon DATE: October 25, 2017 TIME: 10:52 AM PAGER/CONTACT #: [phone] HEPATITIS B SURF. AG Collected: 10/25/2017 Status: F Source: [place] 10:35 AM CLINIC OTHER [place] REPOSITORY TYPE CODE TESTS RESULT OUT OF REFERENCE UNITS RANGE LAB HBSAG Negative Hepatitis B Negative Surf. Ag Performed By: #### HBSAG #### [facility] [address] [place] [address] PROGRESS Observed: 10/25/2017 Status: COMPLETED Source: [place] 9:07 AM [facility] REPOSITORY HNO ID: [id number] Author: Sapna Wyatt Service: Critical Care Author Type: Physician Type: Progress Notes Filed: 10/25/2017 6:30 PM Note Text: [facility] STAFF PHYSICIAN NOTE OF PERSONAL INVOLVEMENT [...] stents on AC, HIT, [facility] for acute hypoxic resp failure due to DAH requiring PLEX, who presented to OSH c/o left-sided abdominal pain, work-up c/w acute blood loss anemia from retroperitoneal bleeding, transferred to [facility] for further mgmt. ?? PLAN:? ?? [...] due to acute hemorrhage. Awaiting transfer to [facility] as she will need plasmapheresis. ? Patient/Family [...] minutes. SIGNATURE: Sapna Wyatt MD [facility] PAGER:[phone] DATE of SERVICE: 10/25/17 TIME of SERVICE: 9:13 AM CONSULT PROG Observed: 10/25/2017 Status: COMPLETED Source: [place] 8:53 AM CLINIC OTHER CAMPUS REPOSITORY HNO ID: [id number] Author: Shaheen Crandall Service: Hypertension AND Nephrology [...] 20 mL 20 mL INTRAVENOUS PRN HYDROmorphone 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 0.5 mg/mL in NaCl 0.9% 100 mL [...] Date 10/25/17 07 - 10/26/17 0659 Shift 8829-0832 9622-8135 3070-5388 24 Hour Total I N T A K E Shift Total O U T P U T Urine 5 5 Tubes 0 0 Shift Total 5 5 Weight (kg) 104.1 104.1 104.1 104.1 Intake/Output 10/22/17 0700 - 10/23/17 0659 10/23/17 0700 - 10/24/17 0659 10/24/17 0700 - 10/25/17 0659 10/25/17 07 - 10/26/17 0659 Intake (ml) 0 3152 [...] AM CBC Collected: 10/25/2017 Status: F Source: [place] 8:53 AM CLINIC OTHER CAMPUS REPOSITORY TYPE CODE [...] nRBC 0.22 Performed By: #### CBC #### [place] [id number] [place] [address] COMP METABOLIC PANEL Collected: 10/25/2017 Status: F Source: [place] 5:00 AM [facility] OTHER CAMPUS REPOSITORY TYPE CODE TESTS RESULT [...] By: #### CMP, MG1, PHOS, CBCDIF #### [place] [phone] MAGNESIUM Collected: 10/25/2017 Status: F Source: [place] 5:00 AM CLINIC OTHER [place] REPOSITORY TYPE CODE TESTS RESULT OUT OF REFERENCE UNITS RANGE LAB MG 1.7-2.6 mg/dL Magnesium 2.1 Performed By: #### CMP, MG1, PHOS, CBCDIF #### [place] [phone] PHOSPHORUS Collected: 10/25/2017 Status: F Source: [place] 5:00 AM CLINIC OTHER [place] REPOSITORY TYPE CODE TESTS RESULT OUT OF REFERENCE UNITS RANGE LAB PHOS 2.5-4.5 mg/dL High Phosphorus 8.6 Performed By: #### CMP, MG1, PHOS, CBCDIF #### [place] [phone] CBC AND DIFFERENTIAL Collected: 10/25/2017 Status: F Source: [place] 5:00 AM [facility] OTHER [place] REPOSITORY TYPE CODE TESTS RESULT OUT OF [...] Abs Lymph Low 0.22 LAB MONOS % Owen% 9.0 LAB AAMONO <0.87 k/uL Abs Owen High 1.97 LAB EOS % Eosin% 0.0 LAB AAEOS <0.46 k/uL Abs Eosin 0.00 LAB BASOS % Baso% 0.0 LAB AABASO <0.11 k/uL Abs Baso 0.00 LAB ABIMMG k/uL ANC(includeSEG+BAN 19.47 D) LAB META % Line [place]% 1.0 LAB ANIIMI Anisocytosis Present LAB LFTIMI Left Shift Present LAB OVAIMI Ovalocytes Few LAB POLIMI Polychromasia Slight LAB PLTEST Platelet Estimate Platelet estimate decreased LAB DTYP DTYPE Manual Diff Performed By: #### CMP, MG1, PHOS, CBCDIF #### [facility] [address] [place] [address] CBC Collected: 10/24/2017 Status: F Source: [place] 10:30 PM CLINIC OTHER CAMPUS REPOSITORY TYPE [...] nRBC 0.12 Performed By: #### CBC #### [place] [id number] [place] [address] BASIC METABOLIC PANL Collected: 10/24/2017 Status: F Source: [place] 10:30 PM [facility] REPOSITORY TYPE CODE TESTS RESULT [...] Races 20 Performed By: #### BMP #### [place] [id number] [place] [address] Observed: 10/24/2017 Status: F Source: [place] RESPIRATORY CULT/STAIN 8:00 PM [facility] REPOSITORY Smear Result - Many Gram negative diplococci --> ABNORMAL ALERT Moderate --> ABNORMAL ALERT Yeast --> ABNORMAL ALERT Few --> ABNORMAL ALERT Gram positive bacilli --> ABNORMAL ALERT Many P olymorphonuclear leukocytes Few Epithelial cells Culture Result - Many Moraxella catarrhalis --> ABNORMAL ALERT Beta lactamase Positive --> ABNORMAL ALERT Many Normal respiratory zoila present Performed By: #### RCULST #### [facility] [address] [place] [id number] NURSING PROG Observed: 10/24/2017 Status: COMPLETED Source: [place] 7:58 PM CLINIC OTHER CAMPUS REPOSITORY HNO ID: [id number] Author: Angella (Rn) JEFF Barreto Service: Nursing Author Type: Registered Nurse Type: Nursing Progress Note Filed: 10/25/2017 8:08 AM Note Text: Nursing Progress Note Patient Name: Paloma Cannon [facility] [place] [address] Note: 1930- Bedside report received from off going RN and care of patient assumed. 1999- Initial assessment completed as documented. Patient up to bedside commode to void. Patient had an XL BM. Patient has Dilaudid 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 pump infusing via bolus at 0.2mg. 2020- Medications administered as ordered, please refer to MAR for full details. 2100- Patient order for blood draws discussed with Dr. Phan. Per LIP labs to drawn after 2200 due to administration of Potassium reducing medications. 2230- Blood drawn and sent to lab as [...] RN PROGRESS Observed: 10/24/2017 Status: COMPLETED Source: [place] 7:47 PM CLINIC OTHER CAMPUS REPOSITORY O ID: [id number] Author: Radha Brown Service: Critical Care Author Type: Nurse Practitioner Type: Progress Notes Filed: 10/24/2017 7:50 PM Note Text: MICU PROGRESS NOTE WITH COORD CARE SERVICE DATE: 10/24/2017 SERVICE TIME: 929 Admission Date: 10/23/2017 Day #: 2 in the MICU. 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 She [...] mesentery. She was transferred to MICU as [facility] had no beds. On arrival to MICU [...] artery, -> embolized. Incidential finding of large IMPORT/EXPORT ADMINISTRATOR -CFV fistula, Vascular Surgery consulted -. fistula [...] repet bmp 9PM Family requests transfer to [facility] . AC on hold in setting acute bleed Assessment/Plan retroperitoneal bleed 10/23. 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 discharged 10/22 on fondaparinux currently on hold Plan: Consulted hematology, appreciate recs --plasmapheresis q 2 weeks and prednisone 80 mg daily; a prednisone taper by 20 mg every four days (with maintenance of prednisone 5 mg daily) plasmapheresis due Monday Prophylactic: - PPI IMPORT/EXPORT ADMINISTRATOR -CFV fistula, Vascular Surgery consulted -. fistula created in 2013 no need for intervention FULL CODE difficult airway seen and discussed with Dr Wyatt on AM and late afternoon rounds transfer orders in for transfer to [facility] Dr Womack contacting MICU staff to discuss [...] 20 mL 20 mL INTRAVENOUS PRN HYDROmorphone 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 0.5 mg/mL in NaCl 0.9% 100 mL INTRAVENOUS CONTINUOUS predniSONE (DELTASONE) tab(s) 80 mg 80 mg ORAL DAILY sulfamethoxazole-trimethoprim 800-160 mg 1 tablet (BACTRIM DS,SEPTRA DS) 1 tablet ORAL hydrocortisone topical cream 1% TOPICAL BID PRN INFUSIONS HYDROmorphone 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 0.5 mg/mL Lines, Drains, and Airways Line [...] NURSING PROG Observed: 10/24/2017 Status: COMPLETED Source: [place] 6:22 PM CLINIC OTHER CAMPUS REPOSITORY HNO ID: [id number] Author: Dary (Rn) JEFF Mueller Service: (none) Author Type: Registered Nurse Type: Nursing Progress Note Filed: 10/24/2017 7:47 PM Note Text: Nursing Progress Note Patient Name: Paloma Cannon Patient [facility] [place] [address] Daily Note: 0730 report received,pt remains on [...] ashley well.pt attempting to have a BM unsuccessful.MARKLOGIC DEVELOPER informed and orders placed. 1745 pt up in the ch from [facility]. 1800 pt remains up in the ch. in to see the pt update given.Vss.U/o remains minimal 1930 report to relief nurse. This note was completed by: Dary Mueller RN ALLIED HEALTH Observed: 10/24/2017 Status: COMPLETED Source: [place] 3:10 PM CLINIC OTHER CAMPUS REPOSITORY O ID: [id number] Author: Estela Sanchez (Chaplain) Service: Spiritual Care Author Type: Type: Allied Health Filed: 10/24/2017 3:14 PM Note Text: SPIRITUAL CARE PROGRESS NOTE SERVICE DATE: 10/24/2017 SERVICE TIME: 1500 Story Writer provided spiritual support through reflective listening and reinforcing ways pt uses to comfort and calm her self during anxiety attacks. Story Writer shared Psalm 23 and prayed with pt, who became tearful and expressed she had been comforted by the Psalm and the prayer. Pt expressed interest in using lavender for comfort and multimedia production assistant offered to bring some lavender scented inhalers, lotions, etc., to the pt which she readily accepted. Story Writer will bring this to pt later this afternoon and continue support. To contact the Spiritual Care Department: Please call [phone]. SIGNATURE: Chaplain Nova PATIENT NAME: Paloma Cannon DATE: October 24, 2017 TIME: 3:10 PM PAGER/CONTACT #: [phone] BASIC METABOLIC PANL Collected: 10/24/2017 Status: F Source: [place] 1:55 PM [facility] OTHER CAMPUS REPOSITORY TYPE CODE TESTS RESULT [...] Races 22 Performed By: #### BMP #### [place] [address] THROMBOGRAPH PANEL Collected: 10/24/2017 Status: F Source: [place] 1:55 PM [facility] OTHER [place] REPOSITORY TYPE CODE TESTS RESULT OUT OF [...] TEG results. Performed By: #### TEGPNP #### 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 She was discharged yesterday after she stabilized and reached her home around 6 PM. She started having severe left sided abdominal pain under her breast radiating up to thigh region after that and went back to [facility] ED. She had a CT abdomen done at outside hospital that showed extensive retroperitoneal Hemorrhage on the left with mass effect on the left kidney. Also less extensive blood products present along the surface of the spleen and in the mesentery. [facility] had no beds. On arrival to [facility] patient complained of severe excruciating pain [...] artery, -> embolized. Incidential finding of large IMPORT/EXPORT ADMINISTRATOR -CFV fistula, Vascular Surgery consulted -. fistula [...] 20 mL 20 mL INTRAVENOUS PRN HYDROmorphone 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 0.5 mg/mL in NaCl 0.9% 100 mL INTRAVENOUS CONTINUOUS predniSONE (DELTASONE) tab(s) 80 mg 80 mg ORAL DAILY sulfamethoxazole-trimethoprim 800-160 mg 1 tablet (BACTRIM DS,SEPTRA DS) 1 tablet ORAL hydrocortisone topical cream 1% TOPICAL BID PRN Intake/Output 10/22/17 07 - 10/23/17 0659 10/23/17 07 - 10/24/17 0659 10/24/17 07 - 10/25/17 0659 Intake (ml) 0 3152 881 Output (ml) 220 634 145 Net (ml) -220 1004 736 MNT Billing Type: Initial Assess/15 min 5 units SIGNATURE: Micaela Rice RD, LD PATIENT NAME: Paloma Cannon DATE: October 24, 2017 TIME: 12:28 PM PAGER: For further assistance and weekends please page the Group Pager -[phone] CBC Collected: 10/24/2017 Status: F Source: [place] 12:00 PM [facility] REPOSITORY TYPE CODE TESTS RESULT [...] nRBC 0.14 Performed By: #### CBC #### [place] [address] CONSULT Observed: 10/24/2017 Status: COMPLETED Source: [place] 10:03 AM [facility] REPOSITORY HNO ID: [id number] Author: Shaheen Crandall Service: Hypertension AND Nephrology Author Type: Physician Type: Consults Filed: 10/24/2017 10:19 AM Note Text: Dictation number: [id number] CAPRICE on CKD 3 CAPRICE likely from [...] ALLIED HEALTH Observed: 10/24/2017 Status: COMPLETED Source: [place] 9:24 AM [facility] REPOSITORY HNO ID: [id number] Author: Allyson Sykes (Rt) Service: Radiology Author Type: Shipping Supervisor Type: Allied Health Filed: 10/24/2017 9:24 AM [...] Observed: 10/24/2017 Status: F Source: [facility] 9:22 AM [facility] OTHER [place] REPOSITORY * * *Final Report* * * [...] compatible with volume overload. Cardiomegaly again seen Dopeman: MURTAZA Transcribe Date/Time: Oct 24 2017 9:32A Dictated by : ENA VILLA MD This examination was interpreted and the report reviewed and electronically signed by: ENA VILLA MD on Oct 24 2017 9:35AM EST [id number] CBC Collected: 10/24/2017 Status: F Source: [place] 8:40 AM [facility] OTHER [place] REPOSITORY TYPE CODE TESTS RESULT OUT OF [...] nRBC 0.17 Performed By: #### CBC #### [place] [address] THROMBOGRAPH PANEL Collected: 10/24/2017 Status: F Source: [place] 8:40 AM [facility] OTHER [place] REPOSITORY TYPE CODE TESTS RESULT OUT OF [...] Account Credited Performed By: #### TEGPNP #### [facility] [address] [place], [place] [address] NURSING PROG Observed: 10/24/2017 Status: COMPLETED Source: [place] 7:46 AM [facility] OTHER [place] REPOSITORY HNO ID: [id number] Author: Saundra SanchezRn) JEFF Choe Service: Critical Care Author Type: Registered Nurse Type: Nursing Progress Note Filed: 10/24/2017 8:08 AM Note Text: Nursing Progress Note Patient Name: Paloma Cannon Patient Location: -MICU36/-ICU-36 Daily Note: 1930 Report received Complete assessment to follow 1999 Complete assessment done. Pt is awake, alert, oriented x3 Dilaudid 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 controlling pt's pain at this time NSR to BST on telemetry monitor. Speeh clear VSS Pt is on O2 at 6 L NC SAO2 mid to upper 90's Respiratory rate will decrease to 6 when the pt is sleeping. Minimal yellow urine noted. Moderate amount of serous drainage from the right groin Site from IR. Taking po fluids without difficulty. 1999 Blood cultures drawn by the usability specialist as ordered 2029 CBC., BMP, Blood cultures and Thrombograph blood work drawn from the Samantha catheter and sent to lab as ordered. 2234 Ese Arias from labs called regarding the Thrombograph panel. Stated that this is a mail out to [facility] and lab would need to be [...] Updated on assessment and events of the stars specialist. 0735 PRBC's completed at this time. No adverse reaction noted. This note was completed by: Saundra Choe RN PROGRESS Observed: 10/24/2017 Status: COMPLETED Source: [place] 7:25 AM CLINIC OTHER CAMPUS REPOSITORY HNO ID: [id number] Author: Sapna Wyatt Service: Critical Care Author Type: Physician Type: Progress Notes Filed: 10/24/2017 12:36 PM Note Text: [facility] STAFF PHYSICIAN NOTE OF PERSONAL INVOLVEMENT [...] stents on AC, HIT, [facility] for acute hypoxic resp failure due to DAH requiring PLEX, who presented to OSH c/o left-sided abdominal pain, work-up c/w acute blood loss anemia from retroperitoneal bleeding, transferred to [facility] for further mgmt. ? PLAN: ? [...] hospitalization until then will need transfer to [facility]. HTN - hold home meds for now. [...] minutes. SIGNATURE: Sapna Wyatt MD [facility] PAGER:[phone] DATE of SERVICE: 10/24/17 TIME of SERVICE: 12:36 PM CONSULT Observed: 10/24/2017 Status: COMPLETED Source: [place] 5:57 AM [facility] OTHER CAMPUS REPOSITORY O ID: [id number] Author: Lydia Roque Service: Vascular Surgery Author [...] on Prednisone, Cyclophosphamide, and recently admitted to [facility] 10/13- requiring mechanical ventilation and PLEX), DVT/PE?needing extensive percutaneous thrombectomy of her IVC and lower extremity veins followed by placement of B/L?iliac venous?stents and an?endograft into her IVC, on long-term AC, HIT, CKD III, HTN, HFrEF, peripheral neuropathy, post phlebitic syndrome, who was transferred from [place] ED for retroperitoneal bleeding on 10/23/17. She is now s/p IR embolization of left L3 lumbar artery. Vascular surgery is consulted for IMPORT/EXPORT ADMINISTRATOR to CFV fistula found during procedure. Per patient she has had these fistula since her multiple surgeries in [place] in 2013. After the surgery, she experiences lower extremity swelling, however she is able to ambulate. Her most recent DVT can was in 10/14/17 in [facility] and was negative for acute DVT. She has been on fondaparinux during her hospitalization(history of HIT) and prior to that has been mainatained on coumadin. Presently, she has no acute lower extremity symptoms except the right groin access site painful. Summary of Operations in [facility]: 10/02/2013 OPERATION PERFORMED: 1. Urgent control [...] Cannulation of left internal jugular vein with 17-Wallisian Bio-Medicus arterial cannula. 3. Cannulation of right internal jugular vein with 26-Wallisian GORE DrySeal for the Angiovac suction catheter. [...] 0 COMPOUNDED PRESCRIPTION Outpatient physical therapyPlease call [phone] to make an appointment Disp: 1 Each [...] 20 mL 20 mL INTRAVENOUS PRN HYDROmorphone 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 0.5 mg/mL in NaCl 0.9% 100 mL [...] of the left L3 lumbar artery. ?2.4 Wallisian microcatheter system was then used to select [...] on Prednisone, Cyclophosphamide, and recently admitted to [facility] 10/13- requiring mechanical ventilation and PLEX), DVT/PE?needing extensive percutaneous thrombectomy of her IVC and lower extremity veins followed by placement of B/L?iliac venous?stents and an?endograft into her IVC, on long-term AC, HIT, CKD III, HTN, HFrEF, peripheral neuropathy, post phlebitic syndrome, who was transferred from [place] ED for retroperitoneal bleeding on 10/23/17. She [...] 24, 2017 TIME: 5:57 AM PAGER/CONTACT #: [phone] Agree wit keith. Pt seen and examined. Av fistulae in groin as noted. No sign of severe pain or active bleeding. Images reviewed. These fistulae are helpful for her prior venous interventions. Thus, should be left in place and simply observed. Please call for further concerns. thx.Lydia Mancini MD XR ABDOMEN 1V SUPINE Observed: 10/24/2017 Status: F Source: [place] 5:26 AM CLINIC OTHER CAMPUS REPOSITORY * * *Final [...] small bowel. Enteric tube has been removed. Dopeman: MURTAZA Transcribe Date/Time: Oct 24 2017 5:33A Dictated by : WILFRED CURRY MD This examination was interpreted and the report reviewed and electronically signed by: WILFRED CURRY MD on Oct 24 2017 5:35AM EST [id number] ALLIED HEALTH Observed: 10/24/2017 Status: COMPLETED Source: [place] 5:16 AM CLINIC OTHER CAMPUS REPOSITORY HNO ID: [id number] Author: Aline (Rt) Allyson Munoz Service: Radiology Author Type: Shipping Supervisor Type: Allied Health Filed: 10/24/2017 5:27 AM [...] URINALYSIS WITH Collected: 10/24/2017 Status: F Source: [place] MICROSCOPIC 5:00 AM [facility] OTHER CAMPUS REPOSITORY TYPE CODE TESTS RESULT OUT OF RANGE REFERENCE UNITS LAB UCOL Yellow Color Abnormal Straw Alert LAB [facility] Clear Clarity Abnormal Hazy Alert LAB UGLUC Negative mg/dL Glucose, Abnormal Urine 150 Alert LAB UBIL Negative Bilirubin, Urine Negative LAB [facility] Negative Ketones, Urine Negative LAB [facility] 1.005-1.030 Specific [place], Ur 1.009 LAB UHGB Negative Abnormal Hemoglobin/Blood, [...] Mucus Present Performed By: #### UAWMIC #### [place] [address] CBC Collected: 10/24/2017 Status: F Source: [place] 4:05 AM CLINIC OTHER CAMPUS REPOSITORY TYPE CODE [...] Performed By: #### CBC, MG1, PHOS #### [place] [phone] MAGNESIUM Collected: 10/24/2017 Status: F Source: [place] 4:05 AM [facility] OTHER [place] REPOSITORY TYPE CODE TESTS RESULT OUT OF REFERENCE UNITS RANGE LAB MG 1.7-2.6 mg/dL Magnesium 2.1 Performed By: #### CBC, MG1, PHOS #### [place] [phone] PHOSPHORUS Collected: 10/24/2017 Status: F Source: [place] 4:05 AM [facility] OTHER CAMPUS REPOSITORY TYPE CODE TESTS RESULT OUT OF REFERENCE UNITS RANGE LAB PHOS 2.5-4.5 mg/dL High Phosphorus 7.8 Performed By: #### CBC, MG1, PHOS #### [place] [phone] BASIC METABOLIC PANL Collected: 10/24/2017 Status: F Source: [place] 12:30 AM CLINIC OTHER CAMPUS REPOSITORY TYPE CODE [...] Races 29 Performed By: #### BMP #### [place] [phone] CBC Collected: 10/24/2017 Status: F Source: [place] 12:20 AM CLINIC OTHER CAMPUS REPOSITORY TYPE CODE [...] nRBC 0.19 Performed By: #### CBC #### [place] [address] CONSULT Observed: 10/24/2017 Status: COMPLETED Source: [place] 12:00 AM CLINIC OTHER CAMPUS REPOSITORY HNO ID: [id number] Author: Shaheen Crandall Service: Hypertension AND Nephrology Author Type: Physician Type: Consults Filed: 11/16/2017 5:35 PM Note Text: [facility] - Consultation PALOMA CANNON : 1990 AGE: 27 SEX: F ACCTNUM: [id number] HOSP SVC: INTM LOCATION: [facility] ATTENDING PHYSICIAN: SAPNA WYATT DATE OF CONSULTATION: [...] acute kidney injury. She was at the [facility] from October 13 through October 22 for alveolar hemorrhage. She got home around 6 p.m. yesterday. She started having severe left- sided abdominal pain and went back to ER. She had a CT of the abdomen showing extensive retroperitoneal hemorrhage with mass effect on the left kidney and thus she was transferred here. There were no beds at the [facility]. She had an angiogram performed, which showed bleeding from her left L3 artery and this was embolized. She required 200 cc of IV contrast. There is also an incidentally found IMPORT/EXPORT ADMINISTRATOR disease SV fistula. Her urine output has [...] 5.9. She is currently on a Dilaudid 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 for her pain. She does have multiple [...] questions or concerns. Shaheen Crandall M.D. Nephrology SB:[id number] HOSP Observed: 10/24/2017 Status: COMPLETED Source: [place] 12:00 AM [facility] REPOSITORY Patient:Paloma Cannon MRN: <[id number]> Height:5' 3(1.6 m) Weight:251 lb 15.8 oz [...] sevelamer carbonate 800 mg tab(s) (RENVELA) HYDROmorphone 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 0.5 mg/mL in NaCl 0.9% 100 mL [...] Aline Engle MD 10/26/2017 4:29 AM Addendum [facility] DELGADOTila PATIENT NAME: Paloma Cannon History of Presenting [...] d/sandy on PO prednisone. She presented to [place] ED on 10/23 due to severe stabbing left-sided abdominal pain radiating to left arm/leg. She had a CT abdomen that showed extensive left retroperitoneal hemorrhage with mass effect to the left kidney, and less extensive hemorrhage along the surface of the spleen and along the mesentery. She was transferred to [facility] as ICU at [facility] was full. ICU course at [facility]: 10/23 Hb 4.8, received 2 units of [...] morphine had no affect and even dilaudid 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 was insufficient, may need to readdress, dilaudid 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 for now Peripheral neuropathy: gabapentin 200 q12, [...] now requiring dialysis - first HD at [facility] on 10/25 with tunneled dialysis catheter placement [...] Medications/Allergies Prescriptions Prior to Admission: [] HYDROmorphone 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 CLINICIAN DOSE 0.5 mg/mL Inject 0.8 mL [...] bilateral iliac stents and IVC endograft, on termite control technician AC with warfarin, plasmapharesis q2 weeks, prednisone 5 mg qD), 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 She was discharged yesterday after she stabilized and reached her home around 6 PM. She started having severe left sided abdominal pain under her breast radiating down to thigh region and went back to [facility] ED. She had a CT abdomen at outside hospital. Showed extensive L. retroperitoneal Hemorrhage with mass effect to left kidney. Also less extensive hemorrhage present along the surface of the spleen and along mesentery. Transferred to MICU as [facility] had no beds. On arrival to MICU patient complained of severe excruciating pain in the left abdomen, 10/10 in intensity, sharp in quality radiating from Left breast to thigh region. Pain is constant per patient and only minimally improved with Dilaudid patient received in [facility]. ICU course: HG 4.8, lethargic c/o left flank pain poor relief with IV fentanyl. BP low but acceptable (SBP 100-120) Pt received 2 units emergency blood, IR consulted, underwent urgent L RP angiogram, found to have bleeding from multiple foci of the left L3 artery, -> embolized. Incidential finding of large IMPORT/EXPORT ADMINISTRATOR -CFV fistula, Vascular Surgery consulted -. fistula [...] repet bmp 9PM Family requests transfer to [facility] . AC on hold in setting acute bleed 10/25: IV Lasix and Demedex diuretics did not improve u/o. Received 2 units PRBCs overnight with total of 7 units PRBCs since admission to . Is premedicated with diphenhydramine AND solu-cortef prior to each infusion of PRBCs.Nephrology consult to Dr Crandall who ordered HD through [facility] port. Having problems with pain control. Has Dilaudid 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. Added scheduled Percocet 1 q6h. Will continue [...] Gabapentin, reduced dose given renal failure -dilaudid 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 -0.2mg q 20 minutes no basal -percocet [...] bilateral iliac stents and IVC endograft, on termite control technician AC with warfarin, plasmapharesis q2 weeks, prednisone 5 mg qD); aslo has Hx of HIT Dx 2013 by [facility]. discharged 10/22 on fondaparinux currently on hold Plan: Consulted hematology, appreciate recs --plasmapheresis q 2 weeks and prednisone 80 mg daily; a prednisone taper by 20 mg every four days (with maintenance of prednisone 5 mg daily) plasmapheresis due Monday will transfer to [facility] by Monday 10/30 Prophylactic: - PPI -a/c held, scd's IMPORT/EXPORT ADMINISTRATOR -CFV fistula, Vascular Surgery consulted -. fistula created in 2013 no need for intervention FULL CODE difficult airway seen and discussed with Dr Wyatt On transfer to list to [facility] Dr Womack contacting MICU staff to discuss transfer No [facility] bed avail. today 10/25. SIGNATURE: Aline Engle MD, PGY-1 PATIENT NAME: Paloma Cannon DATE: October 26, 2017 TIME: 12:09 AM PAGER: [phone] Note: These recommendations are not final until staffed by provider [facility] STAFF PHYSICIAN NOTE OF PERSONAL [...] overload Poor appetite due to edema Requesting vocational rehab consultant involvement from those involved on regular [...] services: 50 minutes Britney Brady MD Respiratory [place] Beeper Number: [id number] Date of Service: 10/26/2017 Previous Version Linnette [...] 02/20/2016 FAMILY HISTORY: Mother: Father: Siblings: { :64951::no} SOCIAL HISTORY: Smoking: { :19773::No} Drink alcohol: { :80513::no} : { :02047::no} Children: { :17451::no} Work outside the home: { :87441::no} Drug abuse: { :75643::no} STD's: { :18961::no} diphenhydrAMINE (BENADRYL) 50 mg capsule Take 1 [...] 800 mg ORAL TID w MEALS HYDROmorphone 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 0.5 mg/mL in NaCl 0.9% 100 mL [...] Elevated cardiac enzymes CANCER SCREENING QUESTIONS: { :77772} Objective REVIEW OF SYSTEMS: GENERAL: Fever: { :71157::No} Chills: { :92343::No} Night sweats: { :02788::No} Changes in weight: { :39259::No} NEUROLOGICAL: Headaches: { :03266::No} Seizures: { :26054::No} Passing out: { :03412::No} Numbness, tingling or sensation of pins and needles: { :04021::No} HEAD, EYES, EARS, NOSE, AND THROAT: Changes in hearing: { :73704::No} Changes in vision: { :52590::No} Nose bleeds: { :00313::No} CARDIOVASCULAR: Chest pain or pressure: { :93410::No} Palpitations: { :37927::No} Irregular heart rate: { :03004::No} RESPIRATORY: Cough: { :14967::No} Wheezing: { :00631::No} Shortness of breath: { :16398::No} Shortness of breath with exertion: { :48310::No} Coughing up blood: { :99457::No} GASTROINTESTINAL: Abdominal discomfort: { :07019::No} Nausea: { :87089::No} Vomiting: { :59260::No} Diarrhea: { :02113::No} Constipation: { :64728::No} Difficulty swallowing: { :01119::No} Pain with swallowing: { :82704::No} Stomach pain after eating: { :42477::No} Passing blood with bowel movement: { :46492::No} Black tarry stool: { :60942::No} GENITOURINARY: Pain with urination: { :37329::No} Blood in urine: { :75792::No} COOKER LOADER: Abnormal vaginal bleeding: { :40219::No} History of loss: { :83885::No} EXTREMITY: Edema (swelling): { :09832::No} Pain with walking: { :32648::No} MUSCULOSKELETAL: Joint pain: { :13012::No} Joint swelling: { :16652::No} Back pain: { :27379::No} Muscle pain or ache: { :46615::No} SKIN: Rash: { :06894::No} Lesions: { :92166::No} Sores: { :06511::No} Ulcers: { :84997::No} Tenderness: { :87270::No} Skin cancer: { :29460::No} HEMATOLOGY: Easy bruising: { :55238::No} Blood transfusions: { :98104::No} PSYCHOLOGICAL: Do you ever feel blue or nervous: { :28943::No} OTHER: PHYSICAL EXAM: Vital Signs: BP 144/71 Pulse 97 Temp 36.5 ?C (97.7 ?F) (Oral) Resp 13 Ht 160 cm (5' 3) Wt 114.3 kg (251 lb 15.8 oz) SpO2 97% BMI 44.64 kg/m2 General: Neck: Cardiac: Respiratory: Abdominal/GI: Extremity: Skin: Pulse/vascular exam: DATA: Diagnostic tests reviewed for today's visit: { :445473} Component Latest Ref Rng AND Units 10/23/2017 [...] AM PAGER/CONTACT #: . Destinee Flores MD, 10/26/2017 8:48 AM Incomplete [facility] STAFF PHYSICIAN NOTE OF PERSONAL INVOLVEMENT IN CARE I have reviewed the progress note obtained and documented by the nurse practitioner/physician bankruptcy assistant and I personally participated in the [...] minutes. SIGNATURE: Destinee Flores MD [facility] PAGER:[phone] DATE of SERVICE: October 26, 2017 TIME of SERVICE: 8:17 AM Juan Christopher MD 10/26/2017 8:44 AM Lizzie [facility] Initial Consult Note PATIENT NAME: Paloma Cannon [facility] #: [id number] ATTENDING PHYSICIAN: DATE OF SERVICE: 10/26/2017 Room/Bed: [place] [address] REASON FOR CONSULT: Consulting PHYSICIAN: HPI: Ms. Cnanon is a 27 year old female with [...] on PO prednisone. ? She presented to [place] ED on 10/23 due to severe stabbing left-sided abdominal pain radiating to left arm/leg. She had a CT abdomen that showed extensive left retroperitoneal hemorrhage with mass effect to the left kidney, and less extensive hemorrhage along the surface of the spleen and along the mesentery. She was transferred to [facility] as ICU at [facility] was full. ? ICU course at [facility]: 10/23 Hb 4.8, received 2 units of [...] management of alveolar hemorrhage. ? Presented to [facility] ED with hemoptysis/SOB - found to [...] tablet (BACTRIM,SEPTRA) 2 tablet ORAL/FEEDING TUBE -- predniSONE (DELTASONE) tab(s) 80 mg 80 mg ORAL/FEEDING TUBE DAILY gabapentin 100 mg cap(s) (NEURONTIN) 100 mg ORAL q 12 H hydrocortisone sodium succinate (PF) 100 mg injection (Solu- CORTEF) 100 mg INTRAVENOUS q 4 H PRN sevelamer carbonate 800 mg tab(s) (RENVELA) 800 mg ORAL TID w MEALS HYDROmorphone 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 0.5 mg/mL in NaCl 0.9% 100 mL [...] MD Fellow, Hematology and Medical Oncology Pager: [phone] Catherine Oh MD, MD 10/26/2017 1:28 PM [...] Medications Prescriptions Prior to Admission: [] HYDROmorphone 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 CLINICIAN DOSE 0.5 mg/mL Inject 0.8 mL [...] 800 mg ORAL TID w MEALS HYDROmorphone 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 0.5 mg/mL in NaCl 0.9% 100 mL [...] October 26, 2017 TIME: 9:04 AM PAGER: [phone] JUAN PABLO Romo 10/26/2017 1:51 PM Signed CARE MANAGEMENT: ASSESSMENT AND DISCHARGE PLAN SERVICE DATE: 10/26/2017 SERVICE TIME: 9:15A.M. 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 No Advance Directive: Current Advance Directive: None Household Refrigeration Mechanic Assisted with AD Completion: Yes Action: Education [...] Wheelchair Has the Patient Been in a [place] [facility] Facility in the Past 30 days? No SOCIAL: Living Arrangement: Home Lives With: Spouse Financial Resources: Disabled Primary Contact: Extended Emergency Contact Information Primary Emergency Contact: Morteza Cnanon [place] Relation: Spouse Supportive: Yes Other Important Patient [...] 0 I feel financially burdened by my qqt-cn-ghujwd expenses for my prescription medication: Disagree completely [...] IVC, plasmapheresis q2 weeks, prednisone 5mg daily. ERIKA-I met pt at the bedside, she was alert ans oriented per place, time, situation, person. Pt stated she lives in an apartment with her . Pt claims her apartment is on the first floor that makes it easy to move around in her wheelchair. Apart from wheelchair, pt also uses cane, and oxygen 2-liters at home. The Oxygen supplying company is [employer] . Pt;s medical goal is for bleeding to stop, and live a normal life. Pt needs are TBD. SIGNATURE: BRANDI ConnorsI PATIENT NAME: Paloma Cannon DATE: October 26, 2017 TIME: 9:40 AM PAGER/CONTACT #: [phone] I have reviewed and agree with the above assessment. Pt admitted to MICU from OSH for ongoing L RP bleeding. Pt's Hgb down to 5.5, CTA showing active extravasation, plan on IR for further management if needed. Possible IHD vs CVVHD. Needs TBD. SW will continue to follow. SIGNATURE: Lisseth Coto SURGERY AIDE, ELECTRONIC MAINTENANCE SUPERVISOR PATIENT NAME: Paloma Cannon DATE: October 26, 2017 TIME: 9:40 AM PAGER/CONTACT #: [phone] Previous Version ROXY Goodson, Tech 10/26/2017 10:55 [...] NO. IV SITE: Inpatient - refer to [facility] documentation IV SITE APPEARANCE: Clean,Dry and Intact [...] Her INR was 1.0 on admission to [facility]. She had severe left flank/abdominal pain, and [...] angiogram and dialysis begun. Patient transferred to [facility] last night. She's been on low-dose prednisone; [...] d-dimer [place] [phone] Fredi Dykes MD 10/26/2017 11:07 AM Signed [...] 24 cm left retroperitoneal Hematoma, transferred to [facility] for angiography by Dr. Gr which showed L3 lumbar arterial extravasation, embolized on 10/23/2017. The patient was transferred to [facility] for further management and pheresis, but has [...] October 26, 2017 TIME: 10:58 AM PAGER: [phone] Mari Nova PA-C 10/26/2017 12:15 PM Written [...] and Moving all extremities Infusion Medications HYDROmorphone 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 0.5 mg/mL NaCl 0.9% Last Rate: 30 [...] updated within last 24 hours? Yes Edel Guillen RD, LD, [facility] 10/26/2017 12:32 PM Signed NUTRITION THERAPY INITIAL [...] no intervention recommended. ?? She presented to [place] ED on 10/23 due to severe stabbing left-sided abdominal pain radiating to left arm/leg. She had a CT abdomen that showed extensive left retroperitoneal hemorrhage with mass effect to the left kidney, and less extensive hemorrhage along the surface of the spleen and along the mesentery. She was transferred to [facility] as ICU at [facility] was full. Present Diet Order: NPO Nutritional [...] (257 lb 15 oz) 10/18/2016 114.306 kg [place] body weight 52.3 kg Estimated kilocalorie needs: 1446-8251 kilocalories determined by 25-30 kcal/kg ideal body weight Estimated protein needs: 78-105 grams determined by 1.5-2.0 g/kg [place] weight Estimated fluid needs: per MD NUTRITION [...] 800 mg ORAL TID w MEALS HYDROmorphone 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 0.5 mg/mL in NaCl 0.9% 100 mL [...] 3 units SIGNATURE: Edel Guillen, RD, LD, [facility] PATIENT NAME: Paloma Cannon DATE: October 26, 2017 TIME: 12:23 PM PAGER: [phone] Mari Nova PA-C 10/26/2017 12:25 PM Written PLAN: - Hold home amlodipine Mari Nova PA-C 10/26/2017 12:29 PM Edited Assessment: not active DA, recent admission for it PLAN: - Cyclophosphamide on hold until 10/30, continue bactrim - Continue prednisone 80mg qd - Consult nephrology for volume removal Previous Version Mari Nova PA-C 10/26/2017 12:31 PM Written PLAN: - Continue neurontin Mari Nova PA-C 10/26/2017 12:33 PM Written Assessment: CAPRICE [...] Premedicate for transfusions - Hold anticoagulation - 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 pump with dilaudid for pain control of [...] and Moving all extremities Infusion Medications HYDROmorphone 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 0.5 mg/mL NaCl 0.9% Last Rate: 30 [...] Peripheral neuropathy - post-thrombotic syndrome Transferred from [facility] for ongoing L RP bleeding. Major Interval Events: New Events (last 24hrs): 10/26: Transferred from [facility]. Hgb down to 5.5. CTA showing active [...] IR emobolization of left L3 artery at [facility]. Transferred 10/26 for further management. Current Assessment AND Plan Assessment: secondary to anticoagulation PLAN: - IR consulted - CTA abdomen/pelvis - IR embolization - Monitor CBC and transfuse as needed - Premedicate for transfusions - Hold anticoagulation - 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 pump with dilaudid for pain control of L sided pain related to RP bleed Severe CAPRICE (acute kidney injury) ([facility]) 10/08/2015 - Present Overview CAPRICE on CKD III, 2/2 contrast, now requiring dialysis First HD at [facility] on 10/25 with tunneled dialysis catheter placement [...] 26, 2017 TIME: 12:39 PM PAGER/CONTACT #: [phone] [facility] Notes [facility] Nelia Bernal, JEFF 10/23/2017 6:53 AM Addendum Nursing Progress Note Patient Name: Paloma Cannon [facility] [place] [address]: 0510: Pt arrived to ICU [...] Bernal RN Previous Version Mitchell Phan MD, MD 10/23/2017 6:53 PM Attested Attestation signed by [...] bilateral iliac stents and IVC endograft, 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 She [...] in the mesentery. [facility] as [facility] had no beds. [facility] patient complained of severe excruciating pain [...] bilateral iliac stents and IVC endograft, on [facility] AC with warfarin, plasmapharesis q2 weeks, prednisone [...] 0 COMPOUNDED PRESCRIPTION Outpatient physical therapyPlease call [phone] to make an appointment Disp: 1 Each [...] (10/23/17519) Pulse: 100 (10/23/17 0600) Resp: 17 (10/23/17 06) BP: 126/76 (10/23/17 0600) MAP Non Invasive [...] Clear to auscultation O2 Therapy: Nasal Cannula (10/23/17519) No Data Recorded Abdomen: Very tender abdomen [...] October 23, 2017 6:18 AM Previous Version RT Richardson, Autotether 10/23/2017 6:13 AM Signed Radiology Service Progress [...] Kassandra Rios MD 10/23/2017 7:18 AM Signed [facility] STAFF PHYSICIAN NOTE OF PERSONAL INVOLVEMENT [...] on Prednisone, Cyclophosphamide, and recently admitted to [facility] 10/13- requiring mechanical ventilation and PLEX), DVT/PE?needing extensive percutaneous thrombectomy of her IVC and lower extremity veins followed by placement of B/L?iliac venous?stents and an?endograft into her IVC, on long-term AC, HIT, CKD III, HTN, HFrEF, peripheral neuropathy, post phlebitic syndrome, who was transferred this morning from [facility] ED for retroperitoneal bleeding. Ms. Cannon was recently discharged from [facility] where she was admitted 10/13- for DAH [...] prior similar episodes. Ms. Cannon presented to [facility] ED where she was found to have a retroperitoneal bleeding on CT and Hb dropped to 5.7 g/dL. IMPRESSION: I am seeing Ms. 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 SIGNATURE: Kassandra Rios MD [facility] PAGER:[phone] DATE of SERVICE: October 23, 2017 Lynne Sprague, RN, RN 10/23/2017 7:29 AM Signed Nursing Progress Note Patient Name: Paloma Canonn [facility] [place] [address] Daily Note: 0729 Text paged Deepa WATERS R: Bed 36: Hgb=4.8. Thanks. Please advise. Lynne This note was completed by: Lynne Sprague RN Sapna Wyatt MD 10/23/2017 2:43 PM Signed [facility] STAFF PHYSICIAN NOTE OF PERSONAL INVOLVEMENT [...] stents on AC, HIT, [facility] for acute hypoxic resp failure due to DAH requiring PLEX, who presented to OSH c/o left-sided abdominal pain, work-up c/w acute blood loss anemia from retroperitoneal bleeding, transferred to [facility] for further mgmt. PLAN: Acute hypoxic [...] minutes. SIGNATURE: Sapna Wyatt MD [facility] PAGER:[phone] DATE of SERVICE: 10/23/17 TIME of SERVICE: [...] October 23, 2017 TIME: 9:51 AM PAGER: [phone] Sunshine Gr MD 10/23/2017 12:01 PM Signed BRIEF OPERATIVE / PROCEDURE NOTE SURGERY/PROCEDURE DATE: 10/23/17 INCISION/PROCEDURE START TIME: INCISION CLOSE/PROCEDURE END TIME: SURGEON(S)/PROCEDURALIST(S) AND MOLD DESIGNER(S): Maximino Gr - Primary SURGERY/PROCEDURE(S): L RP angiogram and L3 embolization ANESTHESIA: Moderate sedation FINDINGS: Bleeding from multiple foci of from left L3, embolized with gelfoam and coils. Large IMPORT/EXPORT ADMINISTRATOR->CFV fistula ESTIMATED BLOOD LOSS: Minimal SPECIMENS: None COMPLICATIONS: None PRE-OP/PRE-PROCEDURE DIAGNOSIS: Left RP bleed POST-OP/POST-PROCEDURE DIAGNOSIS: Left L3 hemorrhage, L IMPORT/EXPORT ADMINISTRATOR-CFV AVF SIGNATURE: Sunshine Gr MD PATIENT NAME: [...] 23, 2017 TIME: 12:35 PM PAGER/CONTACT #: [phone] Ghazala Bailey 10/23/2017 2:22 PM Signed MEDICATION HISTORY AND MEDICATION RECONCILIATION Patient Name:Karyna Cannon : 1990 Source of history:[facility] records: discharge note on 10/22/17 Medication Nonadherence Identified: No barriers noted The above information represents the best possible medication history: Yes Reconciliation completed? Yes All ASSET COORDINATOR medications addressed by LIP -Amlodipine; zyrtec; fondaparinux [...] See Comments Elevated cardiac enzymes Preferred Pharmacy: [facility] pharmacy Current ASSET COORDINATOR Medications: Prior to Admission medications as of 10/23/17 0602 Medication Sig Last Dose Taking predniSONE (DELTASONE) 20 mg tablet Take 4 tablets by mouth once daily for 8 days. 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 No [...] 0 I feel financially burdened by my ttf-rn-gjgnqt expenses for my prescription medication: Disagree completely [...] Unit. She was just discharged home from [facility] yesterday. The patient lives with her and was independent prior to admission. She has home oxygen provided through [facility]. No skilled needs are anticipated but SW remains available if any needs are identified. SIGNATURE: ROBBI Rollins PATIENT NAME: Paloma Cannon DATE: October 23, 2017 TIME: 3:01 PM PAGER/CONTACT #: [phone] Sandra Morillo MD 10/23/2017 4:35 PM Signed History of Present Illness: 27 year old female with h/o catastrophic APS diagnosed 2013 complicated by PE/DVT and receiving plasmapheresis q2 weeks, Diffuse alveolar hemorrhage (on Prednisone/Cytoxan) who was discharged yesterday from [facility]. On Fondaparinux 7.5mg and on Prednisone 80mg prior to discharge. She was to taper prednisone on discharge. She underwent Plasma exchange 10/16 and 10/18 and is scheduled again 10/30. After her journey home yesterday she developed severe left flank pain and her brought her to [facility]. Today she had MULTIPLE FOCI OF [...] nephrotoxic agents - DVT (deep venous thrombosis) ([facility]) - Elevated CA-125 11/30/2013 244 - Essential hypertension 10/08/2015 Stable on home medications Plan: -continue to monitor on home meds - 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 Bivalirudin to Warfarin bridging - HIT (heparin-induced thrombocytopenia) ([facility]) - Nontoxic multinodular goiter - Obese [...] 20 mL 20 mL INTRAVENOUS PRN HYDROmorphone 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 0.5 mg/mL in NaCl 0.9% 100 mL [...] Abs Lymph 1.00 - 4.00 k/uL 1.03 Owen% % 3.0 Abs Owen <0.87 k/uL 0.52 Eosin% % 0.0 Abs [...] likely due to fondaparinux she received at [facility] recently and has been discontinued. The DAH is a feature of her APS and she will continue plasmapheresis q 2 weeks and prednisone 80 mg daily; a prednisone taper by 20 mg every four days (with maintenance of prednisone 5 mg daily) is recommended. I discussed the case with her jewel diameter gauger at [facility], Dr. Andujar. Sandra Morillo M.D. Lynne [...] Deepa WATERS AND Dr. Welch (Fellow from [facility]). ELLIOTT calls blood bank after discussion w/ [...] if necessary. Concern re meds given @ [phone] - see SEP. Min RR noted 6. Continue to monitor. 0818 1st unit of PRBCs to bedside. Verified, vitals taken per protocol. Transfusion in progress. Dr. Wyatt to bedside to assess. 08 Pt signed consent for transfusion (had previously given verbal consent). Emergent blood bank form completed by Dr. Wyatt. SALES DEVELOPMENT CONSULTANT also at bedside. POC includes IR this AM. 0825 Have spoken w/ Kevin Torres, Pharmacist re dilaudid 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. Pending arrival of infusion to MICU. 0835 Per SALES DEVELOPMENT CONSULTANT, ok for ice chips. W/o s/s of aspiration. Refuses oral care/brushing of teeth at this time. 0845 Have requested HEAD OF ICT to request 2nd unit of PRBCs. Procedure for each unit is to run @ 125-150ml/h x15 min then if no obvious reaction, 999ml/h. Tolerating 1st 15 min and 999ml/h rate thereafter. Pending arrival of unit #2. 0850 Bag of Dialudid Delivered to bedside. Have discussed w/ HEAD OF ICT POC which includes use of Dilaudid IVP until post IR procedure. 0856 Have spoken w/ SALES DEVELOPMENT CONSULTANT of need for additional IV access as pt has single lumen Franchesca catheter (as well as apheresis cath). Discussed possible placement in IR. Per SALES DEVELOPMENT CONSULTANT, after consulting w/ Dr. Wyatt, no additional central line placement to be placed - iff need be, will use apheresis catheter. Notified SALES DEVELOPMENT CONSULTANT of RR min noted bbm - encouraged pt to beathe- concern for additional 0.5mg dilaudid order as pt somnolent after 1mg dilaudid and 50mg bendadryl. Continue to monitor. Hold 0.5mg for now and reassess post procedure. 0905 Per SALES DEVELOPMENT CONSULTANT, POC includes RN to attempt PIV - no central line to be placed in IR 09 Have provided brief report to Bianca in IR including Dilaudid/Fentanyl/Benadryl/Solu-Medrol and PRBC transfusions for HgB 4.8. POC includes transport personnel on the way. 911 Have updated another IR personnel to same info as that provided to Bianca as noted above. 09 POC includes CBC upon return to MICU post IR procedure. 2nd unit of PRBC in progress. As well, will reassess need for 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 v. IVP of dilaudid post procedure. 09 Parted MICU for IR. 0936 10ml blood [...] PRBCs should also be given emergently. 0956 [facility] notifies RN of need for emergent transfusion as noted above - [facility] to notify Blood Bank. 1028 3rd unit of PRBCs up at this time. Verified and vitals per protocol. Have called contaminated land consultantEllen to inquire if imaging disc from [facility] present in pt's chart or belongings per request of Dr. Gr. 1039 No disc available but [facility] contaminated land consultant for Dr. Gr's review. 1100 Notified [facility] to request 4th unit of PRBCs. IR procedure continues in progress. 1123 Have spoken w/ Kevin Torres, Pharmacist re indwelling citrate per pt. Reviewed pt's allergy to Heprain (RONNIE) - Pharmacist to discuss w/ colleagues and f/up w/ RN. 1134 Kevin Torres notifies this RN of availability of Na Citrate 3ml syringes used for indewlling catheters. Order #[id number]. Will have SALES DEVELOPMENT CONSULTANT order so that upon arrival in MICU, can indwell apheresis cath ports. 1145 Have notified deepa WATERS of order # and amount required (total 3.2ml) of Na Citrate as noted above. As well, updated to IR procedure as known by this RN. Per Dr. Gr, pt may be required for transfer to [facility] for complex vascular surgery as Dr. Gooden [...] W/ Kevin Torres re Na Citrate post human resources team member, Candy (pt has dialysis cath) and pt's allergy to heparim. 1242 and Father at bedside.Updated to pt's condition and answered questions as able. In particular, 4 units of PRBCs given, Coils placed in IR, to receive dilaudid 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. Per pt, man-made fistulas in groin for increased blood flow to LEs. Pe rHusband, pt is to have next apheresis 10/30 and pt's PLTs are kept @ < 100. Will notify Dr[address] Wyatt as will need to coordinate transfer to [facility] for such. 1255 Dr. Morillo updated to pt's condition and in particular, pt has been to IR w/ coils, received 4 units for HgB 4.8 and due for apheresis 10/30. 1305 0.5mg dilaudid to be given for continued c/o pain. Will begin 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 Dialudid pump fernando. Dr. Morillo parted bedside. Awaiting arrival of 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 pump to bedside. 1307 Blood sample drawn from Franchesca Cath, labeled, verified and sent to lab via tube system (CBC). 1313 1.6ml Na Citrate placed in each apheresis port. Pt on 3L NC. Continue to monitor. [id number] R groin noted to be bleeding - moderate amt. Using ABD, pressure applied to R groin for all of this time. Bleeding stopped. Continue to monitor. 1410 R groin assessed - no further bleeding. W/o evidence of hematoma. Will continue to monitor. 1415 Reports some relief w/ 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, however, SpO2 low 90s thus increased FiO2 to 4L/min. 1428 ELLIOTT notified of most recent HANDH 02/08/24.2 and pt request for diet. Tolerating sips and chips. Deepa WATERS to order reg diet. 1338 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 Dilaudid began at this time. Instructed in use of demand button and dose and frequency. 1608 Dr. Wyatt at bedside. Thereafter, updated to pt's condition and answered questions. In particular, most recent HANDH and pt's every 4 hour CBC, and effectiveness of dilaudid 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 per pt report. 1616 Text paged Deepa WATERS @ [phone]: Bed 36: Reports itching, especially on chest AND back. Requesting benedryl. Please advise. Thanks. Lynne [phone] SR from Vascualr surgery at bedside. 173 Blood sample drawn from [facility], labeled and sent to lab via tube system. 174 Pharmcy notified of need for prn hydrocortisone topical cream 1%. 180 Vascular surgery resident notified this RN of POC to include b/l LE Duplex. 181 C/o sweating. Temp 36.3. 3 ice packs placed: b/l axialla and posterior neck. 182 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 pump use as follows: 15ml total, Total given 7.5mg, 10/20 demand bolus' AND pt bolus 1.2mg. 1824 Text paged Deepa WATERS: Bed 36: Low UOP. Past 2 hours were 10 AND 15ml. Please advise. Thanks. 1835 Text paged Deepa WATERS: Bed 36: We just sent the CBC @ 1730. Do you want lab to stick and then a draw from the [facility] cath? Please advise. Thanks. 1836 Text paged ELLIOTT: Bed 36: For blood cultures. 1841 Deepa WATERS responded to above text: POC now includes: next CBC AND BMP @ 1999, 1 set of blood cxs to be drawn by lab and the other by RN from [facility] to order zofran as notified pt had small emesis post ingestion of items from dinner tray. Blood cx from line to also be drawn @ 1999 to conserve waste blood. 185 Urine sample obtained from port for cx, labeled verified and sent to lab via tube system. 192 Shift report given to on-coming RN. This note was completed by: Lynen Sprague RN Previous Version Radha Brown APRN.ELLIOTT 10/23/2017 7:46 PM Signed MICU PROGRESS NOTE WITH COORD CARE SERVICE DATE: 10/23/2017 SERVICE TIME: 0845 Admission Date: 10/23/2017 Day #: 1 in the MICU. 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 She [...] mesentery. She was transferred to MICU as [facility] had no beds. On arrival to MICU [...] artery, -> embolized. Incidential finding of large IMPORT/EXPORT ADMINISTRATOR -CFV fistula, Vascular Surgery consulted -. fistula created in 2013 no need for intervention will arrange for US eval for thrombus. Assessment/Plan Neuro: Peripheral neuropathy left flank pain Plan: -pt drowsy hold Gabapentin -dilaudid 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 Cardiovascular: HFpEF: LVEF ~ 50% BP low [...] bilateral iliac stents and IVC endograft, on [facility] AC with warfarin, plasmapharesis q2 weeks, prednisone 5 mg qD); aslo has Hx of HIT Dx 2014 by BROWN. discharged 10/22 on fondaparinux Plan: [...] 20 mL 20 mL INTRAVENOUS PRN HYDROmorphone 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 0.5 mg/mL in NaCl 0.9% 100 mL [...] cream 1% TOPICAL BID PRN INFUSIONS HYDROmorphone 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 0.5 mg/mL Lines, Drains, and Airways Line [...] 23, 2017 TIME: 7:43 PM PAGER/CONTACT #: [phone] Shaheen Crandall MD 10/24/2017 10:33 PM Unsigned Regulatory Affairs Internship [facility] - Consultation PALOMA CANNON : 1990 AGE: 27 SEX: F ACCTNUM: [id number] HOSP SVC: INT LOCATION: [facility] ATTENDING PHYSICIAN: SAPNA WYATT DATE OF CONSULTATION: [...] acute kidney injury. She was at the [facility] from October 13 through October 22 for alveolar hemorrhage. She got home around 6 p.m. yesterday. She started having severe left- sided abdominal pain and went back to ER. She had a CT of the abdomen showing extensive retroperitoneal hemorrhage with mass effect on the left kidney and thus she was transferred here. There were no beds at the [facility]. She had an angiogram performed, which showed bleeding from her left L3 artery and this was embolized. She required 200 cc of IV contrast. There is also an incidentally found IMPORT/EXPORT ADMINISTRATOR disease SV fistula. Her urine output has [...] 5.9. She is currently on a Dilaudid 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 for her pain. She does have multiple [...] dysfunction. Her last kidney ultrasound was in 2016. This showed normal-sized kidneys with thin parenchymal [...] questions or concerns. Shaheen Crandall M.D. Nephrology SB:[id number] /[id number] RT Richardson, Tech 10/24/2017 5:27 AM Signed [...] Adriana Reeves MD, MD 10/25/2017 8:20 AM [facility] [place] [facility] INITIAL CONSULT Service Date: 10/24/2017 [...] on Prednisone, Cyclophosphamide, and recently admitted to [facility] 10/13- requiring mechanical ventilation and PLEX), DVT/PE?needing extensive percutaneous thrombectomy of her IVC and lower extremity veins followed by placement of B/L?iliac venous?stents and an?endograft into her IVC, on long-term AC, HIT, CKD III, HTN, HFrEF, peripheral neuropathy, post phlebitic syndrome, who was transferred from [place] ED for retroperitoneal bleeding on 10/23/17. She is now s/p IR embolization of left L3 lumbar artery. Vascular surgery is consulted for IMPORT/EXPORT ADMINISTRATOR to CFV fistula found during procedure. Per patient she has had these fistula since her multiple surgeries in [place] in 2013. After the surgery, she experiences lower extremity swelling, however she is able to ambulate. Her most recent DVT can was in 10/14/17 in [facility] and was negative for acute DVT. She has been on fondaparinux during her hospitalization(history of HIT) and prior to that has been mainatained on coumadin. Presently, she has no acute lower extremity symptoms except the right groin access site painful. Summary of Operations in [facility]: 10/02/2013 OPERATION PERFORMED: 1. Urgent control [...] Cannulation of left internal jugular vein with 17-Wallisian Bio-Medicus arterial cannula. 3. Cannulation of right internal jugular vein with 26-Wallisian GORE DrySeal for the Angiovac suction catheter. [...] 0 COMPOUNDED PRESCRIPTION Outpatient physical therapyPlease call [phone] to make an appointment Disp: 1 Each [...] 20 mL 20 mL INTRAVENOUS PRN HYDROmorphone 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 0.5 mg/mL in NaCl 0.9% 100 mL [...] or gangrene?: No DATA: Laboratory: Recent Labs 10/24/1740410/24/17 0020 10/23/172029 WBC 28.42* 26.37* 23.91* HB 6.7* 6.9* 7.5* HCT 20.0* 20.7* 22.9* PLT 151 151 168 Recent Labs 10/24/1740410/24/17 0030 10/23/17202910/23/1730 10/22/17 0412 NA -- 130* 132 139 [...] of the left L3 lumbar artery. ?2.4 Wallisian microcatheter system was then used to select [...] on Prednisone, Cyclophosphamide, and recently admitted to [facility] 10/13- requiring mechanical ventilation and PLEX), DVT/PE?needing extensive percutaneous thrombectomy of her IVC and lower extremity veins followed by placement of B/L?iliac venous?stents and an?endograft into her IVC, on long-term AC, HIT, CKD III, HTN, HFrEF, peripheral neuropathy, post phlebitic syndrome, who was transferred from [place] ED for retroperitoneal bleeding on 10/23/17. She [...] 24, 2017 TIME: 5:57 AM PAGER/CONTACT #: [phone] Previous Version Sapna Wyatt MD 10/24/2017 12:36 PM Signed [facility] STAFF PHYSICIAN NOTE OF PERSONAL INVOLVEMENT [...] stents on AC, HIT, [facility] for acute hypoxic resp failure due to DAH requiring PLEX, who presented to OSH c/o left-sided abdominal pain, work-up c/w acute blood loss anemia from retroperitoneal bleeding, transferred to [facility] for further mgmt. ? PLAN: ? [...] hospitalization until then will need transfer to [facility] [place]. HTN - hold home meds for now. [...] minutes. SIGNATURE: Sapna Wyatt MD [facility] PAGER:[phone] DATE of SERVICE: 10/24/17 TIME of SERVICE: 12:36 PM Saundra Choe RN, RN 10/24/2017 8:08 AM Addendum Nursing Progress Note Patient Name: Paloma Cannon [facility] [place] [address] Note: 1930 Report received Complete assessment to follow 1999 Complete assessment done. Pt is awake, alert, oriented x3 Dilaudid 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 controlling pt's pain at this time NSR to BST on telemetry monitor. Speeh clear VSS Pt is on O2 at 6 L NC SAO2 mid to upper 90's Respiratory rate will decrease to 6 when the pt is sleeping. Minimal yellow urine noted. Moderate amount of serous drainage from the right groin Site from IR. Taking po fluids without difficulty. 1999 Blood cultures drawn by the usability specialist as ordered 2029 CBC., BMP, Blood cultures and Thrombograph blood work drawn from the Samantha catheter and sent to lab as ordered. 2234 Ese Arias from labs called regarding the Thrombograph panel. Stated that this is a mail out to [facility] and lab would need to be [...] Updated on assessment and events of the stars specialist. 0735 PRBC's completed at this time. No adverse reaction noted. This note was completed by: Saundra Choe RN Previous Version RT Mony, Tech 10/24/2017 9:24 AM Signed Radiology Service [...] MD 10/24/2017 10:19 AM Signed Dictation number: [id number] CAPRICE on CKD 3 CAPRICE likely from contrast nephropathy. Treatment is conservative Her renal function will hopefully improve within a few days Will give 1 dose IV Lasix 20mg to improve volume status. 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 She was discharged yesterday after she stabilized and reached her home around 6 PM. She started having severe left sided abdominal pain under her breast radiating up to thigh region after that and went back to [facility] ED. She had a CT abdomen done at outside hospital that showed extensive retroperitoneal Hemorrhage on the left with mass effect on the left kidney. Also less extensive blood products present along the surface of the spleen and in the mesentery. She was transferred to MICU as [facility] had no beds. On arrival to MICU [...] artery, -> embolized. Incidential finding of large IMPORT/EXPORT ADMINISTRATOR -CFV fistula, Vascular Surgery consulted -. fistula [...] 20 mL 20 mL INTRAVENOUS PRN HYDROmorphone 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 0.5 mg/mL in NaCl 0.9% 100 mL [...] (ml) 220 634 145 Net (ml) -220 [id number] [id number] MNT Billing Type: Initial Assess/15 min 5 units SIGNATURE: Micaela Rice RD, LD PATIENT NAME: Paloma Cannon DATE: October 24, 2017 TIME: 12:28 PM PAGER: For further assistance and weekends please page the Group Pager [phone] Chaplain Nova 10/24/2017 3:14 PM Signed SPIRITUAL CARE PROGRESS NOTE SERVICE DATE: 10/24/2017 SERVICE TIME: 1500 Story Writer provided spiritual support through reflective listening and reinforcing ways pt uses to comfort and calm her self during anxiety attacks. Story Writer shared Psalm 23 and prayed with pt, who became tearful and expressed she had been comforted by the Psalm and the prayer. Pt expressed interest in using lavender for comfort and multimedia production assistant offered to bring some lavender scented inhalers, lotions, etc., to the pt which she readily accepted. Story Writer will bring this to pt later this afternoon and continue support. To contact the Spiritual Care Department: Please call [phone]. SIGNATURE: Chaplain Nova PATIENT NAME: Paloma Cannon DATE: October 24, 2017 TIME: 3:10 PM PAGER/CONTACT #: [phone] Dary Mueller, RN, RN 10/24/2017 7:47 PM Addendum Nursing Progress Note Patient Name: Paloma Cannon Patient Location: [place] [address] [address] Daily Note: 0730 report received,pt remains on [...] ashley well.pt attempting to have a BM unsuccessful.MARKLOGIC DEVELOPER informed and orders placed. 1745 pt up in the from BSC. 1800 pt remains up in the . in to see the pt update given.Vss.U/o remains minimal 1929 report to relief nurse. This note was completed by: Dary Mueller RN Previous Version Radha Brown APRN.SALES DEVELOPMENT CONSULTANT 10/24/2017 7:50 PM Signed MICU PROGRESS NOTE WITH COORD CARE SERVICE DATE: 10/24/2017 SERVICE TIME: 929 Admission Date: 10/23/2017 Day #: 2 in the MICU. 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 She [...] in the mesentery. [facility] beds. On arrival to MICU [...] artery, -> embolized. Incidential finding of large IMPORT/EXPORT ADMINISTRATOR -CFV fistula, Vascular Surgery consulted -. fistula [...] repet bmp 9PM Family requests transfer to [facility] . AC on hold in setting acute bleed Assessment/Plan retroperitoneal bleed 10/23. 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 discharged 10/22 on fondaparinux currently on hold Plan: Consulted hematology, appreciate recs --plasmapheresis q 2 weeks and prednisone 80 mg daily; a prednisone taper by 20 mg every four days (with maintenance of prednisone 5 mg daily) plasmapheresis due Monday Prophylactic: - PPI IMPORT/EXPORT ADMINISTRATOR -CFV fistula, Vascular Surgery consulted -. fistula created in 2013 no need for intervention FULL CODE difficult airway seen and discussed with Dr Wyatt on AM and late afternoon rounds transfer orders in for transfer to [facility] Dr Womack contacting MICU staff to discuss [...] 20 mL 20 mL INTRAVENOUS PRN HYDROmorphone 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 0.5 mg/mL in NaCl 0.9% 100 mL INTRAVENOUS CONTINUOUS predniSONE (DELTASONE) tab(s) 80 mg 80 mg ORAL DAILY sulfamethoxazole-trimethoprim 800-160 mg 1 tablet (BACTRIM DS,SEPTRA DS) 1 tablet ORAL - hydrocortisone topical cream 1% TOPICAL BID PRN INFUSIONS HYDROmorphone 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 0.5 mg/mL Lines, Drains, and Airways Line [...] Care Time 35 minutes. SIGNATURE: Radha Brown APRN.ELLIOTT PATIENT NAME: Paloma Cannon DATE: October 24, 2017 TIME: 7:47 PM PAGER/CONTACT #: Angella Barreto RN, RN 10/25/2017 8:08 AM Addendum Nursing Progress Note Patient Name: Paloma Cannon [facility] Daily Note: 1929- Bedside report received from off going RN and care of patient assumed. 1999- Initial assessment completed as documented. Patient up to bedside commode to void. Patient had an XL BM. Patient has Dilaudid 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 pump infusing via bolus at 0.2mg. 2020- Medications administered as ordered, please refer to MAR for full details. 2100- Patient order for blood draws discussed with Dr. Phan. Per LIP labs to drawn after 2200 due to administration of Potassium reducing medications. 2230- Blood drawn and sent to lab as [...] 20 mL 20 mL INTRAVENOUS PRN HYDROmorphone 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 0.5 mg/mL in NaCl 0.9% 100 mL [...] Date 10/25/17 07 - 10/26/17 0659 Shift 8925-2631 7324-3622 0663-8703 24 Hour Total I N T A K E Shift Total O U T P U T Urine 5 5 Tubes 0 0 Shift Total 5 5 Weight (kg) 104.1 104.1 104.1 104.1 Intake/Output 10/22/17 0700 - 10/23/17 0659 10/23/17 0700 - 10/24/17 0659 10/24/17 0700 - 10/25/17 0659 10/25/17 07 - 10/26/17 0659 Intake (ml) 0 3152 [...] Sapna Wyatt MD 10/25/2017 6:30 PM Signed [facility] STAFF PHYSICIAN NOTE OF PERSONAL INVOLVEMENT [...] stents on AC, HIT, [facility] for acute hypoxic resp failure due to DAH requiring PLEX, who presented to OSH c/o left-sided abdominal pain, work-up c/w acute blood loss anemia from retroperitoneal bleeding, transferred to [facility] for further mgmt. ?? PLAN:? ?? [...] due to acute hemorrhage. Awaiting transfer to [facility] as she will need plasmapheresis. ? Patient/Family [...] minutes. SIGNATURE: Sapna Wyatt MD [facility] PAGER:[phone] DATE of SERVICE: 10/25/17 TIME of SERVICE: 9:13 AM ROBBI Dahl 10/25/2017 10:54 AM Signed CARE MANAGEMENT PROGRESS NOTE SERVICE DATE: 10/25/2017 SERVICE TIME: 10:52 AM LOS: 2 days Per huddle. Pt is being transferred to [facility]. Potentially before Monday. CM to follow and support. Pt home with spouse. Likely no skilled needs. SIGNATURE: ROBBI Dahl PATIENT NAME: Paloma Cannon DATE: October 25, 2017 TIME: 10:52 AM PAGER/CONTACT #: [phone] ALLYSON Rosas Tech 10/25/2017 12:50 PM Addendum [...] Report given to floor RN-TB ALLYSON Rosas Previous Version ALLYSON Rosas Tech 10/25/2017 11:27 AM Signed PATIENT EDUCATION TOPIC: PATIENT INFORMATION: Plan of Care PATIENT NAME: Paloma Cannon PATIENT LOCATION: [place] [address] [address] READINESS TO LEARN COGNITIVE ABILITY: Alert and [...] Note Patient Name: Paloma Cannon Patient Location: [place] [address] [address] Daily Note:0800- Report and SBAR with offgoing RN, see flow sheet for details. MARKLOGIC DEVELOPER updated by offgoing nurse, will review labs etc 0830- Dr Crandall in for rounds, will order HD treatment, informed pt and discussed treatment 0900- Lab sent per order 09- Supervisory Training Specialist in with MICU team for rounds, updated on status. Pt states pain in Left flank is at 40/10, orders placed for oral pain medication and will give clinician dose of dialudid 1000- Dialysis nurse arrived BS to set up for treatment 1220- Pt complaining of severe pain, rates 20/10, is undergoing HD treatment at this time. Notified Brandi GALINDO pt is continuously having severe pain, will discuss pain medication orders with police judge 1320- HD treatment completed, PRBC's sent for, will administer solu-cortef and benedryl 1345- heavy assist OOB to recliner, pt weak but able to stand and pivot. 1425- PRBC's started, pt remains in recliner, states pain is somewhat better. Drinking liquid supplements. Received benedry and solu medrol prior to transfusion This note was completed by: Roxane Campbell RN Previous Version Navi Giang APRN.SALES DEVELOPMENT CONSULTANT 10/25/2017 4:14 PM Addendum MICU PROGRESS NOTE WITH COORD CARE SERVICE DATE: 10/25/2017 SERVICE TIME: 12:00 Admission Date: 10/23/2017 Day #: 3 in the MICU. 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 She was discharged yesterday after she stabilized and reached her home around 6 PM. She started having severe left sided abdominal pain under her breast radiating down to thigh region and went back to [facility] ED. She had a CT abdomen at outside hospital. Showed extensive L. retroperitoneal Hemorrhage with mass effect to left kidney. Also less extensive hemorrhage present along the surface of the spleen and along mesentery. Transferred to MICU as [facility] had no beds. On arrival to MICU patient complained of severe excruciating pain in the left abdomen, 10/10 in intensity, sharp in quality radiating from Left breast to thigh region. Pain is constant per patient and only minimally improved with Dilaudid patient received in [facility]. ICU course: HG 4.8, lethargic c/o left flank pain poor relief with IV fentanyl. BP low but acceptable (SBP 100-120) Pt received 2 units emergency blood, IR consulted, underwent urgent L RP angiogram, found to have bleeding from multiple foci of the left L3 artery, -> embolized. Incidential finding of large IMPORT/EXPORT ADMINISTRATOR -CFV fistula, Vascular Surgery consulted -. fistula [...] repet bmp 9PM Family requests transfer to [facility] . AC on hold in setting acute bleed 10/25: IV Lasix and Demedex diuretics did not improve u/o. Received 2 units PRBCs overnight with total of 7 units PRBCs since admission to . Is premedicated with diphenhydramine AND solu-cortef prior to each infusion of PRBCs.Nephrology consult to Dr Crandall who ordered HD through Apheresis port. Having problems with pain control. Has Dilaudid 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. Added scheduled Percocet 1 q6h. Will continue [...] Gabapentin, reduced dose given renal failure -dilaudid 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 -0.2mg q 20 minutes no basal -percocet [...] bilateral iliac stents and IVC endograft, on [facility] AC with warfarin, plasmapharesis q2 weeks, prednisone 5 mg qD); aslo has Hx of HIT Dx 2013 by BROWN. discharged 10/22 on fondaparinux currently on hold Plan: Consulted hematology, appreciate recs --plasmapheresis q 2 weeks and prednisone 80 mg daily; a prednisone taper by 20 mg every four days (with maintenance of prednisone 5 mg daily) plasmapheresis due Monday will transfer to [facility] by Monday 10/30 Prophylactic: - PPI -a/c held, scd's IMPORT/EXPORT ADMINISTRATOR -CFV fistula, Vascular Surgery consulted -. fistula created in 2013 no need for intervention FULL CODE difficult airway seen and discussed with Dr Wyatt On transfer to list to [facility] Dr Womack contacting MICU staff to discuss transfer No [facility] bed avail. today 10/25. OBJECTIVE: VITAL SIGNS [...] ORAL q 6 H HYDROmorphone 0.5 mg/mL 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 CLINICIAN DOSE 0.4 mg 0.4 mg INTRAVENOUS [...] 20 mL 20 mL INTRAVENOUS PRN HYDROmorphone 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 0.5 mg/mL in NaCl 0.9% 100 mL INTRAVENOUS CONTINUOUS predniSONE (DELTASONE) tab(s) 80 mg 80 mg ORAL DAILY sulfamethoxazole-trimethoprim 800-160 mg 1 tablet (BACTRIM DS,SEPTRA DS) 1 tablet ORAL -WE hydrocortisone topical cream 1% TOPICAL BID PRN INFUSIONS HYDROmorphone 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 0.5 mg/mL Lines, Drains, and Airways Line [...] Care Time 40 minutes. SIGNATURE: Navi Giang APRN.ELLIOTT PATIENT NAME: Paloma Cannon DATE: October 25, 2017 TIME: 3:47 PM PAGER/CONTACT #: [phone] Previous Version Kenisha Amaya, RN, RN 10/25/2017 10:49 PM Addendum Nursing Progress Note Patient Name: Paloma Cannon Patient Location: -[id number]/-ICU-36 1915: Report received from day RN. 1999: Assessment complete pt is AANDO x3 and following commands, complaints of flank pain 03/19, encouraged use of 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. Sinus rhythm on the monitor. SpO2 is 100% on 6L NC, will titrate down as able. For complete assessment see flow sheet. 2144: Pt received bed at [facility], [facility] bed 6. Critical Care transport ETA is 1 hour. 2149: Report called to [facility] RN Silvio. 2214: Belongings verified with pt. Percocet given early in anticipation of transport. 2219: Critical care transport at bedside, Dilaudid gtt discontinued. 223: Pt transported off the unit in stable [...] at this time from Discharge Medication List. GHAZALA RIVAS October 26, 2017 11:43 AM Pager: [phone] 10/26/2017 11:43 AM Medication List START taking [...] PROTONIX 40 mg tablet Generic drug: pantoprazole senrai 8.6 mg Tab Commonly known as: SENOKOT [...] doctor about these medications HYDROmorphone 0.5 mg/mL 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 CLINICIAN DOSE 0.5 mg/mL Inject 0.8 mL intravenously one time only for 1 dose. Ask about: Should I take this medication? Where to Get Your Medications Information about where to get these medications is not yet available ! Ask your nurse or doctor about these medications - diphenhydrAMINE 50 mg capsule - gabapentin 100 mg capsule - HYDROmorphone 0.5 mg/mL 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 CLINICIAN DOSE 0.5 mg/mL CBC Collected: 10/23/2017 Status: F Source: [place] 8:30 PM CLINIC OTHER CAMPUS REPOSITORY TYPE [...] 0.12 Performed By: #### CBC, BMP #### [place] [address] BASIC METABOLIC PANL Collected: 10/23/2017 Status: F Source: [place] 8:30 PM [facility] REPOSITORY TYPE CODE TESTS RESULT OUT OF REFERENCE UNITS RANGE LAB GLU 65-100 mg/dL Glucose High 172 LAB BUN 8-25 mg/dL BUN High 66 LAB CRET 0.70-1.40 mg/dL High Creatinine 1.86 LAB NA 132-148 mmol/L Sodium 132 LAB K 3.7-5.1 mmol/L High Alert Potassium 6.2 Result Comment: Called to and read back by: George Zhang [facility] 10/23/17 23:03 [facility] LAB CL 98-110 mmol/L Low Chloride 90 LAB CO2 23-32 mmol/L CO2 26 LAB AGAP 9-18 mmol/L Anion Gap 16 LAB CA 8.5-10.5 mg/dL Low Calcium, Total 7.8 LAB GFRAA >60 Low eGFR- Amer. 39 LAB GFRNAA >60 . Low eGFR-All Other Races 32 Performed By: #### CBC, BMP #### [place] [address] Observed: 10/23/2017 Status: F Source: [place] BLOOD CULTURE 8:30 PM [facility] REPOSITORY Culture Result - No growth 5 days Performed By: #### BLCUL #### [facility] [address] [place] [id number] PROGRESS Observed: 10/23/2017 Status: COMPLETED Source: [place] 7:43 PM [facility] REPOSITORY HNO ID: [id number] Author: Radha Brown Service: Critical Care Author Type: Nurse Practitioner Type: Progress Notes Filed: 10/23/2017 7:46 PM Note Text: MICU PROGRESS NOTE WITH COORD CARE SERVICE DATE: 10/23/2017 SERVICE TIME: 844 Admission Date: 10/23/2017 Day #: 1 in the MICU. 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 She [...] mesentery. She was transferred to MICU as [facility] had no beds. On arrival to MICU [...] artery, -> embolized. Incidential finding of large IMPORT/EXPORT ADMINISTRATOR -CFV fistula, Vascular Surgery consulted -. fistula created in 2013 no need for intervention will arrange for US eval for thrombus. Assessment/Plan Neuro: Peripheral neuropathy left flank pain Plan: -pt drowsy hold Gabapentin -dilaudid 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 Cardiovascular: HFpEF: LVEF ~ 50% BP low [...] bilateral iliac stents and IVC endograft, on [facility] AC with warfarin, plasmapharesis q2 weeks, prednisone [...] 20 mL 20 mL INTRAVENOUS PRN HYDROmorphone 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 0.5 mg/mL in NaCl 0.9% 100 mL [...] cream 1% TOPICAL BID PRN INFUSIONS HYDROmorphone 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 0.5 mg/mL Lines, Drains, and Airways Line [...] 23, 2017 TIME: 7:43 PM PAGER/CONTACT #: [phone] Observed: 10/23/2017 Status: F Source: [place] BLOOD CULTURE 7:38 PM [facility] REPOSITORY Sp. Request/Comment: - The blood culture bottles are underfilled. Adding volume lower or higher than the 8 to 10 mL per bottle, which is the manufacturers recommended volume, may adversely affect the re covery and/or detection of organisms. 5.9 CC Culture Result - No growth 5 days Performed By: #### BLCUL #### [facility] [place], [place] [address] Observed: 10/23/2017 Status: F Source: [place] URINE CULTURE 6:50 PM [facility] REPOSITORY Sp. Request/Comment: - Specimen received in preservative Culture Result - <10,000 CFU/ml Gram negative bacilli --> ABNORMAL ALERT Insignificant colony count. No further workup. --> ABNORMAL ALERT Performed By: #### URCUL #### [facility] [address] [place] [address] [place] [id number] CBC Collected: 10/23/2017 Status: F Source: [place] 5:30 PM [facility] OTHER CAMPUS REPOSITORY TYPE CODE TESTS RESULT [...] nRBC 0.06 Performed By: #### CBC #### [place] [address] #### PLATF4 #### [place] [address] ANTI PLT FACTOR 4 Collected: 10/23/2017 Status: F Source: [facility] 5:30 PM [facility] OTHER [place] REPOSITORY TYPE CODE TESTS RESULT OUT OF [...] Review Indicated Performed By: #### CBC #### [place] [address] #### PLATF4 #### [place] [id number] NURSING PROG Observed: 10/23/2017 Status: COMPLETED Source: [place] 4:16 PM CLINIC OTHER CAMPUS REPOSITORY HNO ID: [id number] Author: Lynne (Rn) Darcie RN Service: Nursing Author Type: Registered Nurse [...] Deepa WATERS AND Dr. Welch (Fellow from [facility]). ELLIOTT calls blood bank after discussion w/ Fellow - pt to receive emergent blood. As well, pt to go to IR. 0755 C/o nausea. Zofran given and will give 1mg dilaudid per order. Will discuss w/ Deepa WATERS R pre-medicate prior to transfusion. Per pt, takes 100mg Solu-Medrol and 50mg benadryl. 0756 Deepa WATERS to bediside to bedside. 0758 Have spoken w/ Kevin Torres Pharmacist re STAT verification of Solu-Medrol and [...] blood bank form completed by Dr. Wyatt. SALES DEVELOPMENT CONSULTANT also at bedside. POC includes IR this AM. 0825 Have spoken w/ Kevin Torres, Pharmacist re dilaudid 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. Pending arrival of infusion to MICU. 0835 Per SALES DEVELOPMENT CONSULTANT, ok for ice chips. W/o s/s of aspiration. Refuses oral care/brushing of teeth at this time. 0845 Have requested HEAD OF ICT to request 2nd unit of PRBCs. Procedure for each unit is to run @ 125-150ml/h x15 min then if no obvious reaction, 999ml/h. Tolerating 1st 15 min and 999ml/h rate thereafter. Pending arrival of unit #2. 0850 Bag of Dialudid Delivered to bedside. Have discussed w/ HEAD OF ICT POC which includes use of Dilaudid IVP until post IR procedure. 0856 Have spoken w/ SALES DEVELOPMENT CONSULTANT of need for additional IV access as pt has single lumen Franchesca catheter (as well as apheresis cath). Discussed possible placement in IR. Per SALES DEVELOPMENT CONSULTANT, after consulting w/ Dr. Wyatt, no additional central line placement to be placed - iff need be, will use apheresis catheter. Notified SALES DEVELOPMENT CONSULTANT of RR min noted bbm - encouraged pt to beathe- concern for additional 0.5mg dilaudid order as pt somnolent after 1mg dilaudid and 50mg bendadryl. Continue to monitor. Hold 0.5mg for now and reassess post procedure. 0905 Per SALES DEVELOPMENT CONSULTANT, POC includes RN to attempt PIV - no central line to be placed in IR 09 Have provided brief report to Bianca in IR including Dilaudid/Fentanyl/Benadryl/Solu-Medrol and PRBC transfusions for HgB 4.8. POC includes transport personnel on the way. 911 Have updated another IR personnel to same info as that provided to Bianca as noted above. 09 POC includes CBC upon return to MICU post IR procedure. 2nd unit of PRBC in progress. As well, will reassess need for 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 v. IVP of dilaudid post procedure. 0923 [...] PRBCs should also be given emergently. 0956 [facility] notifies RN of need for emergent transfusion as noted above - [facility] to notify Blood Bank. 1028 3rd unit of PRBCs up at this time. Verified and vitals per protocol. Have called contaminated land consultantEllen PATEL to inquire if imaging disc from [place] present in pt's chart or belongings per request of Dr. Gr. 1039 No disc available but CT results/report brought to [facility] by contaminated land consultant for Dr. Gr's review. 1100 Notified [facility] to request 4th unit of PRBCs. IR procedure continues in progress. 1123 Have spoken w/ Kevin Torres, Pharmacist re indwelling citrate per pt. Reviewed pt's allergy to Heprain (RONNIE) - Pharmacist to discuss w/ colleagues and f/up w/ RN. 1134 Kevin Torres notifies this RN of availability of Na Citrate 3ml syringes used for indewlling catheters. Order #[id number]. Will have SALES DEVELOPMENT CONSULTANT order so that upon arrival in MICU, can indwell apheresis cath ports. 1145 Have notified deepa WATERS of order # and amount required (total 3.2ml) of Na Citrate as noted above. As well, updated to IR procedure as known by this RN. Per Dr. Gr, pt may be required for transfer to [facility] for complex vascular surgery as Dr. Gooden [...] W/ Kevin Brian re Na Citrate post human resources team member, Katharine (pt has dialysis cath) and pt's allergy to heparim. 1242 and Father at bedside.Updated to pt's condition and answered questions as able. In particular, 4 units of PRBCs given, Coils placed in IR, to receive dilaudid 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. Per pt, man-made fistulas in groin for increased blood flow to LEs. Pe rHusband, pt is to have next apheresis 10/30 and pt's PLTs are kept @ < 100. Will notify Dr. Wyatt as will need to coordinate transfer to [facility] for such. 1255 Dr. Morillo updated to pt's condition and in particular, pt has been to IR w/ coils, received 4 units for HgB 4.8 and due for apheresis 10/30. 1305 0.5mg dilaudid to be given for continued c/o pain. Will begin 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 Dialudid pump fernando. Dr. Morillo parted bedside. Awaiting arrival of 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 pump to bedside. 1307 Blood sample drawn from Franchesca Cath, labeled, verified and sent to lab via tube system (CBC). 1313 1.6ml Na Citrate placed in each apheresis port. Pt on 3L NC. Continue to monitor. 2329-9260 R groin noted to be bleeding - moderate amt. Using ABD, pressure applied to R groin for all of this time. Bleeding stopped. Continue to monitor. 1410 R groin assessed - no further bleeding. W/o evidence of hematoma. Will continue to monitor. 1415 Reports some relief w/ 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, however, SpO2 low 90s thus increased FiO2 to 4L/min. 1428 SALES DEVELOPMENT CONSULTANT notified of most recent HANDH 02/08/24.2 and pt request for diet. Tolerating sips and chips. Deepa WATERS to order reg diet. 1338 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 Dilaudid began at this time. Instructed in use of demand button and dose and frequency. 1608 Dr. Wyatt at bedside. Thereafter, updated to pt's condition and answered questions. In particular, most recent HANDH and pt's every 4 hour CBC, and effectiveness of dilaudid 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 per pt report. 1616 Text paged Deepa WATERS @ [phone]: Bed 36: Reports itching, especially on chest AND back. Requesting benedryl. Please advise. Thanks. Lynne [phone] SR from Vascualr surgery at bedside. 1734 Blood sample drawn from [facility], labeled and sent to lab via tube system. 174 Pharmcy notified of need for prn hydrocortisone topical cream 1%. 180 Vascular surgery resident notified this RN of POC to include b/l LE Duplex. 181 C/o sweating. Temp 36.3. 3 ice packs placed: b/l axialla and posterior neck. 182 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 pump use as follows: 15ml total, Total given 7.5mg, / demand bolus' AND pt bolus 1.2mg. 1824 Text paged Deepa WATERS: Bed 36: Low UOP. Past 2 hours were 10 AND 15ml. Please advise. Thanks. 1835 Text paged Deepa WATERS: Bed 36: We just sent the CBC @ 1730. Do you want lab to stick and then a draw from the [facility] cath? Please advise. Thanks. 1836 Text paged ELLIOTT: Bed 36: For blood cultures. 1841 Deepa WATERS responded to above text: POC now includes: next CBC AND BMP @ 1999, 1 set of blood cxs to be drawn by lab and the other by RN from [facility] to order zofran as notified pt had small emesis post ingestion of items from dinner tray. Blood cx from line to also be drawn @ 1999 to conserve waste blood. 185 Urine sample obtained from port for cx, labeled verified and sent to lab via tube system. 192 Shift report given to on-coming RN. 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 On Fondaparinux 7.5mg and on Prednisone 80mg prior to discharge. She was to taper prednisone on discharge. She underwent Plasma exchange 10/16 and 10/18 and is scheduled again 10/30. After her journey home yesterday she developed severe left flank pain and her brought her to [facility]. Today she had MULTIPLE FOCI OF [...] 20 mL 20 mL INTRAVENOUS PRN HYDROmorphone 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 0.5 mg/mL in NaCl 0.9% 100 mL INTRAVENOUS CONTINUOUS hydrocortisone sodium succinate 50 mg injection (Solu-CORTEF) 50 mg INTRAVENOUS ONCE HYDROmorphone 0.2 mg injection (DILAUDID) 0.2 mg INTRAVENOUS ONCE predniSONE (DELTASONE) tab(s) 80 mg 80 mg ORAL DAILY sulfamethoxazole-trimethoprim 800-160 mg 1 tablet (BACTRIM DS,SEPTRA DS) 1 tablet ORAL -WE- Allergies: Rhubarb; Heparin; Iv Contrast [Iodine]; Rituximab [...] Abs Lymph 1.00 - 4.00 k/uL 1.03 Owen% % 3.0 Abs Owen <0.87 k/uL 0.52 Eosin% % 0.0 Abs [...] likely due to fondaparinux she received at [facility] recently and has been discontinued. The DAH is a feature of her APS and she will continue plasmapheresis q 2 weeks and prednisone 80 mg daily; a prednisone taper by 20 mg every four days (with maintenance of prednisone 5 mg daily) is recommended. I discussed the case with her jewel diameter gauger at [facility], Dr. Andujar. Sandra Morillo M.D. 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 No [...] 0 I feel financially burdened by my [id number] expenses for my prescription medication: Disagree completely [...] Unit. She was just discharged home from [facility] yesterday. The patient lives with her and was independent prior to admission. She has home oxygen provided through [facility]. No skilled needs are anticipated but SW remains available if any needs are identified. SIGNATURE: ROBBI Rollins PATIENT NAME: Paloma Cannon DATE: October 23, 2017 TIME: 3:01 PM PAGER/CONTACT #: [phone] PLAN OF CARE Observed: 10/23/2017 Status: COMPLETED Source: [place] 2:20 PM [facility] REPOSITORY HNO ID: [id number] Author: Vlad Soto (Pharmacist) Service: Pharmacy Author Type: Pharmacist Type: Plan of Care Filed: 10/23/2017 2:22 PM Note Text: MEDICATION HISTORY AND MEDICATION RECONCILIATION Patient Name:Karyna Cannon : 1990 Source of history:[facility] records: discharge note on 10/22/17 Medication Nonadherence Identified: No barriers noted The above information represents the best possible medication history: Yes Reconciliation completed? Yes All ASSET COORDINATOR medications addressed by LIP -Amlodipine; zyrtec; fondaparinux [...] See Comments Elevated cardiac enzymes Preferred Pharmacy: [facility] pharmacy Current ASSET COORDINATOR Medications: Prior to Admission medications as of 10/23/17 0602 Medication Sig Last Dose Taking predniSONE (DELTASONE) 20 mg tablet Take 4 tablets by mouth once daily for 8 days. COMPOUNDED PRESCRIPTION Outpatient physical therapy Please call [phone] to make an appointment fondaparinux (ARIXTRA) 2.5 [...] PM CBC Collected: 10/23/2017 Status: F Source: [place] 12:57 PM CLINIC OTHER CAMPUS REPOSITORY TYPE [...] MPV 10.4 Performed By: #### CBC #### [facility] [address] [place] [address] NURSING PROG Observed: 10/23/2017 Status: COMPLETED Source: [place] 12:35 PM [facility] REPOSITORY HNO ID: [id number] Author: Mary Burton (Rn) JEFF Marin Service: [...] 23, 2017 TIME: 12:35 PM PAGER/CONTACT #: [phone] IR ANGIOGRAPHY SPINAL Observed: 10/23/2017 Status: F Source: [facility] 12:00 PM [facility] REPOSITORY * * *Final Report* * [...] Kerma: 4295.0 mGy Dose Area Product (DAP): 736168.0 mGy*cm2 Fluoro Time: 20:00 min:sec Radiation dose [...] guidance. Access was exchanged for a 5 Wallisian sheath. 5 Wallisian pigtail catheter was placed in the cephalad abdominal aorta, aortogram was performed. Next, combination 5 Wallisian Omni Flush catheter straight Bentson wire was used to traverse the aortic bifurcation. Access was exchanged for a 6 Wallisian Bental sheath. Left common iliac, external iliac, and left common femoral artery angiograms were performed. Access was then exchanged for a 5 Wallisian C2 Cobra catheter over a Bentson wire. [...] of the left L3 lumbar artery. 2.4 Wallisian microcatheter system was then used to select [...] Specimens: 0: ATTENDING RADIOLOGIST: Maximino Gr M.D. MOLD DESIGNER: None The procedure was performed by the: attending radiologist, without an bankruptcy assistant. The attending radiologist performed the following procedural activities: Entire procedure. IMPRESSION: MULTIPLE FOCI OF ACTIVE EXTRAVASATION FROM BRANCHES OF THE LEFT L3 LUMBAR ARTERY. SUCCESSFUL GELFOAM/COIL EMBOLIZATION OF THE MIDPORTION OF THIS ARTERY. INCIDENTALLY DISCOVERED DISTAL LEFT COMMON FEMORAL ARTERY TO COMMON FEMORAL VEIN ARTERIOVENOUS FISTULA. GIVEN ITS LOCATION ACROSS THE JOINT, NOT AMENABLE TO ENDOVASCULAR STENTING. RECOMMEND SURGICAL EVALUATION. Dopeman: MURTAZA Transcribe Date/Time: Oct 23 2017 2:19P Dictated by : SUNSHINE GR MD This examination was interpreted and the report reviewed and electronically signed by: SUNSHINE GR MD on Oct 23 2017 2:35PM EST IR ANGIOGRAPHY SPINAL Observed: 10/23/2017 Status: F Source: [facility] 12:00 PM CLINIC OTHER CAMPUS REPOSITORY [...] Kerma: 4295.0 mGy Dose Area Product (DAP): 940019.0 mGy*cm2 Fluoro Time: 20:00 min:sec Radiation dose [...] guidance. Access was exchanged for a 5 Wallisian sheath. 5 Wallisian pigtail catheter was placed in the cephalad abdominal aorta, aortogram was performed. Next, combination 5 Wallisian Omni Flush catheter straight Bentson wire was used to traverse the aortic bifurcation. Access was exchanged for a 6 Wallisian Bental sheath. Left common iliac, external iliac, and left common femoral artery angiograms were performed. Access was then exchanged for a 5 Wallisian C2 Cobra catheter over a Bentson wire. [...] of the left L3 lumbar artery. 2.4 Wallisian microcatheter system was then used to select [...] Specimens: 0: ATTENDING RADIOLOGIST: Maximino Gr M.D. MOLD DESIGNER: None The procedure was performed by the: attending radiologist, without an bankruptcy assistant. The attending radiologist performed the following procedural activities: Entire procedure. IMPRESSION: MULTIPLE FOCI OF ACTIVE EXTRAVASATION FROM BRANCHES OF THE LEFT L3 LUMBAR ARTERY. SUCCESSFUL GELFOAM/COIL EMBOLIZATION OF THE MIDPORTION OF THIS ARTERY. INCIDENTALLY DISCOVERED DISTAL LEFT COMMON FEMORAL ARTERY TO COMMON FEMORAL VEIN ARTERIOVENOUS FISTULA. GIVEN ITS LOCATION ACROSS THE JOINT, NOT AMENABLE TO ENDOVASCULAR STENTING. RECOMMEND SURGICAL EVALUATION. Dopeman: PSCGaudencio Transcribe Date/Time: Oct 23 2017 2:19P Dictated by : SUNSHINE GR MD This examination was interpreted and the report reviewed and electronically signed by: SUNSHINE GR MD on Oct 23 2017 2:35PM EST IR ANGIOGRAPHY SPINAL Observed: 10/23/2017 Status: F Source: [facility] 12:00 PM CLINIC OTHER CAMPUS REPOSITORY [...] Kerma: 4295.0 mGy Dose Area Product (DAP): 883104.0 mGy*cm2 Fluoro Time: 20:00 min:sec Radiation dose [...] guidance. Access was exchanged for a 5 Wallisian sheath. 5 Wallisian pigtail catheter was placed in the cephalad abdominal aorta, aortogram was performed. Next, combination 5 Wallisian Omni Flush catheter straight Bentson wire was used to traverse the aortic bifurcation. Access was exchanged for a 6 Wallisian Bental sheath. Left common iliac, external iliac, and left common femoral artery angiograms were performed. Access was then exchanged for a 5 Wallisian C2 Cobra catheter over a Bentson wire. [...] of the left L3 lumbar artery. 2.4 Wallisian microcatheter system was then used to select [...] Specimens: 0: ATTENDING RADIOLOGIST: Maximino Gr M.D. MOLD DESIGNER: None The procedure was performed by the: attending radiologist, without an bankruptcy assistant. The attending radiologist performed the following procedural activities: Entire procedure. IMPRESSION: MULTIPLE FOCI OF ACTIVE EXTRAVASATION FROM BRANCHES OF THE LEFT L3 LUMBAR ARTERY. SUCCESSFUL GELFOAM/COIL EMBOLIZATION OF THE MIDPORTION OF THIS ARTERY. INCIDENTALLY DISCOVERED DISTAL LEFT COMMON FEMORAL ARTERY TO COMMON FEMORAL VEIN ARTERIOVENOUS FISTULA. GIVEN ITS LOCATION ACROSS THE JOINT, NOT AMENABLE TO ENDOVASCULAR STENTING. RECOMMEND SURGICAL EVALUATION. Dopeman: [facility] MEDICAL CENTERGaudencio Transcribe Date/Time: Oct 23 2017 2:19P Dictated by : SUNSHINE GR MD This examination was interpreted and the report reviewed and electronically signed by: SUNSHINE GR MD on Oct 23 2017 2:35PM EST IR ANGIOGRAPHY SPINAL Observed: 10/23/2017 Status: F Source: [facility] 12:00 PM CLINIC OTHER CAMPUS REPOSITORY [...] Kerma: 4295.0 mGy Dose Area Product (DAP): 709875.0 mGy*cm2 Fluoro Time: 20:00 min:sec Radiation dose [...] guidance. Access was exchanged for a 5 Wallisian sheath. 5 Wallisian pigtail catheter was placed in the cephalad abdominal aorta, aortogram was performed. Next, combination 5 Wallisian Omni Flush catheter straight Bentson wire was used to traverse the aortic bifurcation. Access was exchanged for a 6 Wallisian Bental sheath. Left common iliac, external iliac, and left common femoral artery angiograms were performed. Access was then exchanged for a 5 Wallisian C2 Cobra catheter over a Bentson wire. [...] of the left L3 lumbar artery. 2.4 Wallisian microcatheter system was then used to select [...] Specimens: 0: ATTENDING RADIOLOGIST: Maximino Gr M.D. MOLD DESIGNER: None The procedure was performed by the: attending radiologist, without an bankruptcy assistant. The attending radiologist performed the following procedural activities: Entire procedure. IMPRESSION: MULTIPLE FOCI OF ACTIVE EXTRAVASATION FROM BRANCHES OF THE LEFT L3 LUMBAR ARTERY. SUCCESSFUL GELFOAM/COIL EMBOLIZATION OF THE MIDPORTION OF THIS ARTERY. INCIDENTALLY DISCOVERED DISTAL LEFT COMMON FEMORAL ARTERY TO COMMON FEMORAL VEIN ARTERIOVENOUS FISTULA. GIVEN ITS LOCATION ACROSS THE JOINT, NOT AMENABLE TO ENDOVASCULAR STENTING. RECOMMEND SURGICAL EVALUATION. Dopeman: PSCB Transcribe Date/Time: Oct 23 2017 2:19P Dictated by : SUNSHINE GR MD This examination was interpreted and the report reviewed and electronically signed by: SUNSHINE GR MD on Oct 23 2017 2:35PM EST IR ILIAC ANGIO Observed: 10/23/2017 Status: F Source: [place] 12:00 PM CLINIC OTHER CAMPUS REPOSITORY * [...] Kerma: 4295.0 mGy Dose Area Product (DAP): 979527.0 mGy*cm2 Fluoro Time: 20:00 min:sec Radiation dose [...] guidance. Access was exchanged for a 5 Wallisian sheath. 5 Wallisian pigtail catheter was placed in the cephalad abdominal aorta, aortogram was performed. Next, combination 5 Wallisian Omni Flush catheter straight Bentson wire was used to traverse the aortic bifurcation. Access was exchanged for a 6 Wallisian Bental sheath. Left common iliac, external iliac, and left common femoral artery angiograms were performed. Access was then exchanged for a 5 Wallisian C2 Cobra catheter over a Bentson wire. [...] of the left L3 lumbar artery. 2.4 Wallisian microcatheter system was then used to select [...] Specimens: 0: ATTENDING RADIOLOGIST: Maximino Gr M.D. MOLD DESIGNER: None The procedure was performed by the: attending radiologist, without an bankruptcy assistant. The attending radiologist performed the following procedural activities: Entire procedure. IMPRESSION: MULTIPLE FOCI OF ACTIVE EXTRAVASATION FROM BRANCHES OF THE LEFT L3 LUMBAR ARTERY. SUCCESSFUL GELFOAM/COIL EMBOLIZATION OF THE MIDPORTION OF THIS ARTERY. INCIDENTALLY DISCOVERED DISTAL LEFT COMMON FEMORAL ARTERY TO COMMON FEMORAL VEIN ARTERIOVENOUS FISTULA. GIVEN ITS LOCATION ACROSS THE JOINT, NOT AMENABLE TO ENDOVASCULAR STENTING. RECOMMEND SURGICAL EVALUATION. Dopeman: MURTAZA Transcribe Date/Time: Oct 23 2017 2:19P Dictated by : SUNSHINE GR MD This examination was interpreted and the report reviewed and electronically signed by: SUNSHINE GR MD on Oct 23 2017 2:35PM EST IR EXIST CATH ANGIO Observed: 10/23/2017 Status: F Source: [place] F/U 12:00 PM CLINIC OTHER CAMPUS REPOSITORY [...] Kerma: 4295.0 mGy Dose Area Product (DAP): 731096.0 mGy*cm2 Fluoro Time: 20:00 min:sec Radiation dose [...] guidance. Access was exchanged for a 5 Wallisian sheath. 5 Wallisian pigtail catheter was placed in the cephalad abdominal aorta, aortogram was performed. Next, combination 5 Wallisian Omni Flush catheter straight Bentson wire was used to traverse the aortic bifurcation. Access was exchanged for a 6 Wallisian Bental sheath. Left common iliac, external iliac, and left common femoral artery angiograms were performed. Access was then exchanged for a 5 Wallisian C2 Cobra catheter over a Bentson wire. [...] of the left L3 lumbar artery. 2.4 Wallisian microcatheter system was then used to select [...] Specimens: 0: ATTENDING RADIOLOGIST: Maximino Gr M.D. MOLD DESIGNER: None The procedure was performed by the: attending radiologist, without an bankruptcy assistant. The attending radiologist performed the following procedural activities: Entire procedure. IMPRESSION: MULTIPLE FOCI OF ACTIVE EXTRAVASATION FROM BRANCHES OF THE LEFT L3 LUMBAR ARTERY. SUCCESSFUL GELFOAM/COIL EMBOLIZATION OF THE MIDPORTION OF THIS ARTERY. INCIDENTALLY DISCOVERED DISTAL LEFT COMMON FEMORAL ARTERY TO COMMON FEMORAL VEIN ARTERIOVENOUS FISTULA. GIVEN ITS LOCATION ACROSS THE JOINT, NOT AMENABLE TO ENDOVASCULAR STENTING. RECOMMEND SURGICAL EVALUATION. Dopeman: [facility] Transcribe Date/Time: Oct 23 2017 2:19P Dictated by : SUNSHINE GR MD This examination was interpreted and the report reviewed and electronically signed by: SUNSHINE GR MD on Oct 23 2017 2:35PM EST IR RENAL ANGIO UNI Observed: 10/23/2017 Status: F Source: [place] 12:00 PM [facility] OTHER CAMPUS REPOSITORY * * *Final Report* * * DATE OF EXAM: Oct 23 2017 12:00PM [facility] [id number] - IR RENAL ANGIO UNI / [...] Kerma: 4295.0 mGy Dose Area Product (DAP): 788027.0 mGy*cm2 Fluoro Time: 20:00 min:sec Radiation dose [...] guidance. Access was exchanged for a 5 Wallisian sheath. 5 Wallisian pigtail catheter was placed in the cephalad abdominal aorta, aortogram was performed. Next, combination 5 Wallisian Omni Flush catheter straight Bentson wire was used to traverse the aortic bifurcation. Access was exchanged for a 6 Wallisian Bental sheath. Left common iliac, external iliac, and left common femoral artery angiograms were performed. Access was then exchanged for a 5 Wallisian C2 Cobra catheter over a Bentson wire. [...] of the left L3 lumbar artery. 2.4 Wallisian microcatheter system was then used to select [...] Specimens: 0: ATTENDING RADIOLOGIST: Maximino Gr M.D. MOLD DESIGNER: None The procedure was performed by the: attending radiologist, without an bankruptcy assistant. The attending radiologist performed the following procedural activities: Entire procedure. IMPRESSION: MULTIPLE FOCI OF ACTIVE EXTRAVASATION FROM BRANCHES OF THE LEFT L3 LUMBAR ARTERY. SUCCESSFUL GELFOAM/COIL EMBOLIZATION OF THE MIDPORTION OF THIS ARTERY. INCIDENTALLY DISCOVERED DISTAL LEFT COMMON FEMORAL ARTERY TO COMMON FEMORAL VEIN ARTERIOVENOUS FISTULA. GIVEN ITS LOCATION ACROSS THE JOINT, NOT AMENABLE TO ENDOVASCULAR STENTING. RECOMMEND SURGICAL EVALUATION. Dopeman: MURTAZA Transcribe Date/Time: Oct 23 2017 2:19P Dictated by : SUNSHINE GR MD This examination was interpreted and the report reviewed and electronically signed by: SUNSHINE GR MD on Oct 23 2017 2:35PM EST IR ABDOMINAL AORTOGRAM Observed: 10/23/2017 Status: F Source: [place] 12:00 PM [facility] OTHER CAMPUS REPOSITORY * * *Final Report* [...] Kerma: 4295.0 mGy Dose Area Product (DAP): 852417.0 mGy*cm2 Fluoro Time: 20:00 min:sec Radiation dose [...] guidance. Access was exchanged for a 5 Wallisian sheath. 5 Wallisian pigtail catheter was placed in the cephalad abdominal aorta, aortogram was performed. Next, combination 5 Wallisian Omni Flush catheter straight Bentson wire was used to traverse the aortic bifurcation. Access was exchanged for a 6 Wallisian Bental sheath. Left common iliac, external iliac, and left common femoral artery angiograms were performed. Access was then exchanged for a 5 Wallisian C2 Cobra catheter over a Bentson wire. [...] of the left L3 lumbar artery. 2.4 Wallisian microcatheter system was then used to select [...] Specimens: 0: ATTENDING RADIOLOGIST: Maximino Gr M.D. MOLD DESIGNER: None The procedure was performed by the: attending radiologist, without an bankruptcy assistant. The attending radiologist performed the following procedural activities: Entire procedure. IMPRESSION: MULTIPLE FOCI OF ACTIVE EXTRAVASATION FROM BRANCHES OF THE LEFT L3 LUMBAR ARTERY. SUCCESSFUL GELFOAM/COIL EMBOLIZATION OF THE MIDPORTION OF THIS ARTERY. INCIDENTALLY DISCOVERED DISTAL LEFT COMMON FEMORAL ARTERY TO COMMON FEMORAL VEIN ARTERIOVENOUS FISTULA. GIVEN ITS LOCATION ACROSS THE JOINT, NOT AMENABLE TO ENDOVASCULAR STENTING. RECOMMEND SURGICAL EVALUATION. Dopeman: MURTAZA Transcribe Date/Time: Oct 23 2017 2:19P Dictated by : SUNSHINE GR MD This examination was interpreted and the report reviewed and electronically signed by: SUNSHINE GR MD on Oct 23 2017 2:35PM EST IR EMBO HEMORRHAGE/EXTRAVAS Observed: 10/23/2017 Status: F Source: [place] 12:00 PM CLINIC OTHER CAMPUS REPOSITORY * * *Final Report* * * DATE OF EXAM: Oct 23 2017 12:00PM [facility] [id number] - IR EMBO HEMORRHAGE/EXTRAVAS / PROCEDURE [...] Kerma: 4295.0 mGy Dose Area Product (DAP): 322848.0 mGy*cm2 Fluoro Time: 20:00 min:sec Radiation dose [...] guidance. Access was exchanged for a 5 Wallisian sheath. 5 Wallisian pigtail catheter was placed in the cephalad abdominal aorta, aortogram was performed. Next, combination 5 Wallisian Omni Flush catheter straight Bentson wire was used to traverse the aortic bifurcation. Access was exchanged for a 6 Wallisian Bental sheath. Left common iliac, external iliac, and left common femoral artery angiograms were performed. Access was then exchanged for a 5 Wallisian C2 Cobra catheter over a Bentson wire. [...] of the left L3 lumbar artery. 2.4 Wallisian microcatheter system was then used to select [...] Specimens: 0: ATTENDING RADIOLOGIST: Maximino Gr M.D. MOLD DESIGNER: None The procedure was performed by the: attending radiologist, without an bankruptcy assistant. The attending radiologist performed the following procedural activities: Entire procedure. IMPRESSION: MULTIPLE FOCI OF ACTIVE EXTRAVASATION FROM BRANCHES OF THE LEFT L3 LUMBAR ARTERY. SUCCESSFUL GELFOAM/COIL EMBOLIZATION OF THE MIDPORTION OF THIS ARTERY. INCIDENTALLY DISCOVERED DISTAL LEFT COMMON FEMORAL ARTERY TO COMMON FEMORAL VEIN ARTERIOVENOUS FISTULA. GIVEN ITS LOCATION ACROSS THE JOINT, NOT AMENABLE TO ENDOVASCULAR STENTING. RECOMMEND SURGICAL EVALUATION. Dopeman: PSCB Transcribe Date/Time: Oct 23 2017 2:19P Dictated by : SUNSHINE GR MD This examination was interpreted and the report reviewed and electronically signed by: SUNSHINE GR MD on Oct 23 2017 2:35PM EST BRIEF OP NOT Observed: 10/23/2017 Status: COMPLETED Source: [place] 11:57 AM CLINIC OTHER CAMPUS REPOSITORY HNO ID: [id number] Author: Sunshine Gr Service: Radiology Author Type: Physician Type: Brief Op Note Filed: 10/23/2017 12:01 PM Note Text: BRIEF OPERATIVE / PROCEDURE NOTE SURGERY/PROCEDURE DATE: 10/23/17 INCISION/PROCEDURE START TIME: INCISION CLOSE/PROCEDURE END TIME: SURGEON(S)/PROCEDURALIST(S) AND MOLD DESIGNER(S): Maximino Gr - Primary SURGERY/PROCEDURE(S): L RP angiogram and L3 embolization ANESTHESIA: Moderate sedation FINDINGS: Bleeding from multiple foci of from left L3, embolized with gelfoam and coils. Large IMPORT/EXPORT ADMINISTRATOR->CFV fistula ESTIMATED BLOOD LOSS: Minimal SPECIMENS: None COMPLICATIONS: None PRE-OP/PRE-PROCEDURE DIAGNOSIS: Left RP bleed POST-OP/POST-PROCEDURE DIAGNOSIS: Left L3 hemorrhage, L IMPORT/EXPORT ADMINISTRATOR-CFV AVF SIGNATURE: Sunshine Gr MD PATIENT NAME: aPloma Cannon DATE: October 23, 2017 TIME: 11:57 AM PAGER/CONTACT #: [phone] Observed: 10/23/2017 Status: COMPLETED Source: [place] 7:48 AM [facility] REPOSITORY HNO ID: [id number] Author: Sapna Wyatt Service: Critical Care Author Type: Physician Type: Progress Notes Filed: 10/23/2017 2:43 PM Note Text: [facility] STAFF PHYSICIAN NOTE OF PERSONAL INVOLVEMENT [...] stents on AC, HIT, [facility] for acute hypoxic resp failure due to DAH requiring PLEX, who presented to OSH c/o left-sided abdominal pain, work-up c/w acute blood loss anemia from retroperitoneal bleeding, transferred to [facility] for further mgmt. PLAN: Acute hypoxic [...] minutes. SIGNATURE: Sapna Wyatt MD [facility] PAGER:[phone] DATE of SERVICE: 10/23/17 TIME of SERVICE: 9:01 AM NURSING PROG Observed: 10/23/2017 Status: COMPLETED Source: [place] 7:29 AM CLINIC OTHER CAMPUS REPOSITORY O ID: [id number] Author: Lynne Sauer) JEFF Sprague Service: Nursing Author Type: Registered Nurse Type: Nursing Progress Note Filed: 10/23/2017 7:29 AM Note Text: Nursing Progress Note Patient Name: Paloma Cannon [facility]: 0729 Text paged Deepa WATERS R: Bed 36: Hgb=4.8. Thanks. Please advise. Lynne This note was completed by: Lynne Sprague RN HISTORY PHYSICAL Observed: 10/23/2017 Status: COMPLETED Source: [place] 6:51 AM CLINIC OTHER CAMPUS REPOSITORY O ID: [id number] Author: Kassandra Rios Service: Critical Care Author Type: Physician Type: HANDP Filed: 10/23/2017 7:18 AM Note Text: [facility] STAFF PHYSICIAN NOTE OF PERSONAL INVOLVEMENT [...] on Prednisone, Cyclophosphamide, and recently admitted to [facility] 10/13- requiring mechanical ventilation and PLEX), DVT/PE?needing extensive percutaneous thrombectomy of her IVC and lower extremity veins followed by placement of B/L?iliac venous?stents and an?endograft into her IVC, on long-term AC, HIT, CKD III, HTN, HFrEF, peripheral neuropathy, post phlebitic syndrome, who was transferred this morning from [place] ED for retroperitoneal bleeding. Ms. Cannon was recently discharged from [facility] where she was admitted 10/13- for DAH [...] prior similar episodes. Ms. Cannon presented to [place] ED where she was found to have a retroperitoneal bleeding on CT and Hb dropped to 5.7 g/dL. IMPRESSION: I am seeing Ms. 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 SIGNATURE: Kassandra Rios MD [facility] PAGER:[phone] DATE of SERVICE: October 23, 2017 COMP METABOLIC PANEL Collected: 10/23/2017 Status: F Source: [place] 6:30 AM [facility] OTHER CAMPUS REPOSITORY TYPE CODE TESTS RESULT [...] By: #### CMP, LIPA, AMYL, CBCDIF #### [place] [address] LIPASE Collected: 10/23/2017 Status: F Source: [place] 6:30 AM [facility] REPOSITORY TYPE CODE TESTS RESULT OUT OF REFERENCE UNITS RANGE LAB LIPA 12-70 U/L Lipase 48 Performed By: #### CMP, LIPA, AMYL, CBCDIF #### [place] [address] AMYLASE Collected: 10/23/2017 Status: F Source: [place] 6:30 AM CLINIC OTHER CAMPUS REPOSITORY TYPE CODE TESTS RESULT OUT OF REFERENCE UNITS RANGE LAB AMYL 0-137 U/L Amylase 47 Performed By: #### CMP, LIPA, AMYL, CBCDIF #### [place] [id number] [place] [id number] CBC AND DIFFERENTIAL Collected: 10/23/2017 Status: F Source: [place] 6:30 AM [facility] OTHER [place] REPOSITORY TYPE CODE TESTS RESULT OUT OF [...] k/uL Abs Lymph 1.03 LAB MONOS % Owen% 3.0 LAB AAMONO <0.87 k/uL Abs Owen 0.52 LAB EOS % Eosin% 0.0 LAB AAEOS <0.46 k/uL Abs Eosin 0.00 LAB BASOS % Baso% 0.0 LAB AABASO <0.11 k/uL Abs Baso 0.00 LAB ABIMMG k/uL 15.33 ANC(includeSEG+BAND ) LAB META % Line [place]% 1.0 LAB MYELOS % Myelo% 1.0 LAB ANIIMI Anisocytosis Present LAB LFTIMI Left Shift Present LAB BSTIPW Basophilic Stippling Occasional LAB OVAIMI Ovalocytes Few LAB POLIMI Polychromasia Slight LAB PLTEST Platelet Estimate Platelet estimate adequate LAB DTYP DTYPE Manual Diff Performed By: #### CMP, LIPA, AMYL, CBCDIF #### [place] [phone] MAGNESIUM Collected: 10/23/2017 Status: F Source: [place] 6:30 AM CLINIC OTHER CAMPUS REPOSITORY TYPE CODE TESTS RESULT OUT OF REFERENCE UNITS RANGE LAB MG 1.7-2.6 mg/dL Magnesium 2.0 Performed By: #### MG1 #### [place] [phone] TYPE AND SCREEN Collected: 10/23/2017 Status: F Source: [place] 6:30 AM CLINIC OTHER CAMPUS REPOSITORY TYPE CODE TESTS RESULT OUT OF REFERENCE UNITS RANGE LAB %ABR B ABO/RH(D) POSITIVE LAB % Antibody Screen POS LAB %RADHA Antibody Identified Result Comment: ANTI-E PRESENT. ANTIBODY REACTIVITY, No Apparent Specificity. Performed By: #### TSCR #### [place] [phone] XR CHEST 1V FRONTAL Observed: 10/23/2017 Status: F Source: [facility] 6:11 AM CLINIC OTHER CAMPUS REPOSITORY * * *Final [...] resolution of previously seen bilateral airspace consolidation Dopeman: PSCB Transcribe Date/Time: Oct 23 2017 6:14A Dictated by : ERASMO KELLY MD This examination was interpreted and the report reviewed and electronically signed by: ERASMO KELLY MD on Oct 23 2017 6:16AM EST [id number] ALLIED HEALTH Observed: 10/23/2017 Status: COMPLETED Source: [place] 6:05 AM [facility] HNO ID: [id number] Author: Allyson Bai (Rt) Service: Radiology Author Type: Shipping Supervisor Type: Allied Health Filed: 10/23/2017 6:13 AM [...] HISTORY PHYSICAL Observed: 10/23/2017 Status: COMPLETED Source: [place] 6:03 AM [facility] REPOSITORY HNO ID: [id number] Author: Mitchell Phan MD Service: Critical Care [...] bilateral iliac stents and IVC endograft, 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 She [...] mesentery. She was transferred to MICU as [facility] had no beds. On arrival to MICU [...] bilateral iliac stents and IVC endograft, on [facility] AC with warfarin, plasmapharesis q2 weeks, prednisone [...] 0 COMPOUNDED PRESCRIPTION Outpatient physical therapyPlease call [phone] to make an appointment Disp: 1 Each [...] NURSING PROG Observed: 10/23/2017 Status: COMPLETED Source: [place] 5:31 AM CLINIC OTHER CAMPUS REPOSITORY O ID: [id number] Author: Nelia (Rn) Gabe Service: Nursing Author Type: Registered Nurse Type: Nursing Progress Note Filed: 10/23/2017 6:53 AM Note Text: Nursing Progress Note Patient Name: Paloma Cannon [facility] Daily Note: 0510: Pt arrived to ICU [...] EMERGENCY DEPARTMENT Observed: 10/23/2017 Status: F Source: [place] SUMMARY 5:04 AM [facility] Medical Records Department [address] [place] [address] Emergency Department Summary 10/23/17 0237 MR#: [id number] Acct: [id number] Name: PALOMA CANNON Rep #: [id number] : 1990 27 From: Lydia Harley MD PCP: Peyton Rogers MD Status: DEP ER - ER Visit Summary Date of Service: 10/23/17 Chief Complaint: Abdominal pain History of Present Illness: The patient is a 27 F with left- sided abdominal pain that started around 6 PM. The patient was just discharged early in the day from the [facility]. She had been admitted for alveolar hemorrhage [...] multiple doses of Dilaudid for pain. Requested [facility] for admission. [facility] did not have ICU beds at the main campus. Patient will instead go to [facility]. Patient has remained hemodynamically stable. Awaiting transfusion. Awaiting transport. Treatment Plan: As above Disposition: Transfer to [facility] Impression: 1. Retroperitoneal hematoma 2. Anemia This note was generated with [employer] dictation software. It may contain incorrect words, [...] problems, contact your Primary Care Provider. Call [facility] ([phone]) or report to the closest Emergency Room. Call 911 if necessary. 10/23/17 3234 <Electronically signed by Lydia Harley MD> Date Lydia Harley MD Cosigner Signature (If Indicated): Date CC: Peyton Rogers MD URINALYSIS, COMPLETE Collected: 10/23/2017 Status: F Source: [place] 1:30 AM [facility] Order Comment: How was Urine Obtained? [...] URINE SEEN Performed By: #### L400.0001 #### [facility] [address] [place], [place], [id number] TYPE AND SCREEN Collected: 10/23/2017 Status: F Source: [place] 1:30 AM [facility] Order Comment: Reason for Type AND Screen/Red Cells: SURGERY TYPE CODE TESTS RESULT OUT OF RANGE REFERENCE UNITS LAB B10.0800 B Normal BLOOD TYPE GEL POSITIVE LAB B100.4000 High Antibody POSITIVE Screen Performed By: #### B101.7450, B101.2000 #### [facility] [address] [place], [address] ANTIBODY PANEL ID Collected: 10/23/2017 Status: C Source: [place] 1:30 AM [facility] Order Comment: Reason for Type AND Screen/Red Cells: SURGERY TYPE CODE TESTS RESULT OUT OF REFERENCE UNITS RANGE LAB B101.1999 ANTIBODY PANEL ANTI-E Performed By: #### B101.7450, B101.1999 #### [facility] [address] [place], [address] COMPREHENSIVE METABOLIC Collected: 10/23/2017 Status: F Source: [facility] 12:30 AM [facility] TYPE CODE TESTS RESULT OUT OF [...] 9 Performed By: #### L500.4050, L501.2450 #### [facility] [address] [facility]. [place], [place], [address] LIPASE Collected: 10/23/2017 Status: F Source: [place] 12:30 AM [facility] TYPE CODE TESTS RESULT OUT OF RANGE REFERENCE UNITS LAB L501.2450 73-393 U/L Normal LIPASE 248 Performed By: #### L500.4050, L501.2450 #### [facility] [address] [place], [address] CBC W/DIFF, AUTOMATED Collected: 10/23/2017 Status: C Source: [place] 12:30 AM [facility] TYPE CODE TESTS RESULT OUT OF RANGE REFERENCE UNITS LAB L100.1000 4.4-11.0 K/mm3 High WBC 16.3 LAB L100.1200 4.2-5.4 M/mm3 Low RBC 2.02 LAB L100.1300 12.0-15.0 g/dl Low alert HGB 5.7 Result Comment: CRITICAL VALUE VERIFIED. CALLED TO [facility]URITY MANAGER 10/23/17 0110 Nathalia Jones. RESULTS READ BACK [...] 0955 PATH REV previously reported as: November zeynep Performed By: #### L100.0100 #### [facility] [address] [place], [place], [address] PROTHROMBIN TIME W/INR Collected: 10/23/2017 Status: F Source: [place] 12:30 AM [facility] TYPE CODE TESTS RESULT OUT OF RANGE REFERENCE UNITS LAB L300.4150 11.7-14.9 SECONDS High PROTIME 15.5 LAB L300.4200 Normal INR 1.2 Performed By: #### L300.3900 #### [facility] [address] [place], [place], [address] ,SERUM,HCG QUALI. Collected: Status: F Source: [place] 10/23/2017 12:30 AM [facility] TYPE CODE TESTS RESULT OUT OF REFERENCE UNITS RANGE LAB L700.7000 0-9 Nonpreg Negative Normal HCGSQUAL NEGATIVE LAB L700.6700 =>Qualitative mIU/mL Normal HCG Qual 2 triggr Performed By: #### L700.6800 #### [facility] [address] [place], [address] PARTIAL THROMBOPLAST Collected: 10/23/2017 Status: F Source: [place] TIME 12:30 AM [facility] TYPE CODE TESTS RESULT OUT OF RANGE REFERENCE UNITS LAB L300.4310 24.1-36.2 Seconds Normal PTT 30.0 Performed By: #### L300.4310 #### [facility] [address] [place], [address] ABDOMEN/PELVIS WITHOUT Observed: 10/23/2017 Status: F Source: [place] CONT 12:23 AM [facility] Imaging Services [address] [place] [address] Abdomen/Pelvis without Cont MR#: [id number] Acct: [id number] Name: PALOMA CANNON Rep #: [id number] : 1990 F 27 From: Raciel Briggs MD PCP: Peyton Rogers MD Status: REG ER Study: Abdomen/Pelvis without Cont Date of Exam: 10/23/17 Exam# [id number] Ordering Dr: Lydia Harley MD STUDY: CT [...] CC: Peyton Rogers MD; Lydia Harley MD Dopeman: Signed SR-ABDOMEN/PELVIS WITHOUT Observed: 10/23/2017 Status: F Source: [place] [facility] IMPORT 12:00 AM [facility] MAIN [place] REPOSITORY Images were obtained outside of [facility] [id number] NURSING PROG Observed: 10/22/2017 Status: COMPLETED Source: [place] 4:00 PM [facility] REPOSITORY HNO ID: [id number] Author: Hank (Rn) JEFF Saeed Service: (none) Author Type: Registered Nurse Type: Nursing Progress Note Filed: 10/22/2017 4:17 PM Note Text: Nursing Progress Note Patient Name: Paloma Cannon Patient Location: [facility] [place] 017/G091-17 Daily Note:Pt discharged at 1600, going home in stable condition. Left floor via wheelchair, pushed by . Going home in family car. This note was completed by: Hank Saeed RN PLAN OF CARE Observed: 10/22/2017 Status: COMPLETED Source: [place] 1:55 PM [facility] REPOSITORY HNO ID: [id number] Author: Larisa Vila (Pharmacist) Service: Pharmacy Author [...] Pharmacist October 22, 2017 1:55 PM Pager: [phone] 10/22/2017 1:55 PM Medication List START taking these medications COMPOUNDED PRESCRIPTION Outpatient physical therapy Please call [phone] to make an appointment CHANGE how you [...] tablet CNDS Observed: 10/22/2017 Status: COMPLETED Source: [place] 1:31 PM [facility] REPOSITORY O ID: [id number] Author: Ranjan Mitchell Service: General Internal Medicine [...] X 2: 10/16; 10/18 US Spleen DVT US LL HOSPITAL COURSE: 27 year old female who [...] Post phlebitic syndrome She initially presented to [facility] ED with hemoptysis/SOB - found to be in increased work of breathing and low sats - was intubated (10/13/17). Initial labs: Hgb 10.1, WBC 17, INR 2.1 (last dose of Warfarin 5 mg on 10/12/17 evening), Cr 1.32, K 5.0, Bicarb 18, AG 18, Lactate 12.4. Initial ABG on 100% FiO2/PEEP 14: 7.29, 44,79. [facility] for further management of DAH on [...] pain located laterally. . Pain is constant, 8/10, nonpleuritic, reproducible on palpation. Cardiac enzymes and [...] COMPOUNDED PRESCRIPTION Outpatient physical therapy Please call [phone] to make an appointment Qty: 1 Each [...] Time Provider Department Center 10/30/2017 11:40 AM KEM FIGUEROA 10/30/2017 11:40 AM KEM FIGUEROA 10/30/2017 12:30 PM [id number] [facility] [place] 11/13/2017 12:00 PM [id number] [facility] [place] 11/24/2017 9:00 AM [id number] [place] INTMWS [facility] 11/27/2017 12:00 PM [id number] [facility] [place] 12/05/2017 8:15 AM [id number], LISA (PT) PTWS [facility] 12/11/2017 12:00 PM [id number]-EXUVQQBBY [facility] [place] 12/11/2017 12:20 PM [id number] CHEST MAIN A21 RADMN RADIO A BLDG 12/11/2017 1:25 PM 5091-PARAMBIL, GUILLAUME PULMMN PULM A/E/R/G 12/11/2017 1:25 PM 5091-PARAMBIL, GUILLAUME PULMMN PULM A/E/R/G 12/25/2017 12:00 PM [id number]-OJJEMCGMB [facility] [place] 01/08/2018 12:00 PM [id number]-MFXHSDJMU [facility] [place] 01/22/2018 12:00 PM [id number]-AHZRGDIXX [facility] [place] 02/05/2018 12:00 PM [id number]-ORCGXIHBW [facility] [place] TIME OF CARE (Use first blank if not applicable): TIME OF CARE: Discharge Management: I personally spent greater than 30 minutes involved in the discharge management of this patient. SIGNATURE: Edwige Keene MD PATIENT NAME: Paloma Cannon DATE: October 22, 2017 TIME: 1:31 PM PAGER/CONTACT #: [phone] CBC Collected: 10/22/2017 Status: F Source: [place] 12:45 PM [facility] REPOSITORY TYPE [...] nRBC 0.02 Performed By: #### CBC #### [facility] [address], [place] [address] TYPE AND SCREEN Collected: 10/22/2017 Status: F Source: [place] 12:45 PM [facility] REPOSITORY TYPE CODE TESTS RESULT OUT OF REFERENCE UNITS RANGE LAB %ABR B ABO/RH(D) POSITIVE LAB % Antibody POS Screen Performed By: #### TSCR #### [facility] [address], [place] [address] PLAN OF CARE Observed: 10/22/2017 Status: COMPLETED Source: [place] 12:40 PM [facility] REPOSITORY HNO ID: [id number] Author: Dominique Rios Service: Hematology/Oncology Author Type: [...] before plan made re: discharge today STAT HH now If hemoglobin in 8.5g/dl range OK [...] Service PROGRESS Observed: 10/22/2017 Status: COMPLETED Source: [place] 8:01 AM [facility] REPOSITORY HNO ID: [id number] Author: Ranjan Mitchell Service: General Internal Medicine [...] tablet (BACTRIM DS,SEPTRA DS) 1 tablet ORAL sennosides 8.8 mg/5 mL 8.8 mg (SENNA) [...] warmth over the legs bilaterally NEURO: AOx3, 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 There is [...] and she was transferred back to the [facility] on 10/19. # Diffuse alveolar hemorrhage [...] on 10/16 and 10/18. - Transferred to [facility] on 10/19 - Steroids decreased to prednisone 80 mg QD on 10/21 - No hemoptysis or pulmonary symptoms PLAN: - Continue prednisone 80 mg QD and will taper according to hematology recs - Increase solumedrol to 250 if hemoptysis recurs and persists. - CBC daily - [facility] for [facility] ? #Left [...] October 22, 2017 TIME: 8:51 AM PAGER: [phone] I have reviewed the progress note documented by the resident, and I personally confirmed/participated in the fernandes components. I evaluated and examined the patient with the resident team and reviewed the relevant data. I have discussed the case and management of the patient's care with the healthcare team, including residents, nursing, case assistant and the patient. Her h/h of 7.3 [...] discussion with hematology and RN Ranjan matson [id number] 10/22/2017 1:38 PM CBC Collected: 10/22/2017 Status: F Source: [place] 4:12 AM [facility] REPOSITORY TYPE CODE TESTS RESULT OUT [...] #### CBC, PT, CMP, MG1, PHOS #### [facility] [address] [place] [address] PROTIME Collected: 10/22/2017 Status: F Source: [place] 4:12 AM [facility] REPOSITORY TYPE CODE TESTS RESULT OUT OF RANGE REFERENCE UNITS LAB PSEC 9.7-13.0 sec PT Sec 11.5 LAB INR 0.9-1.3 PT INR 1.1 Result Comment: Vitamin K Antagonist (VKA) Therapeutic Range: INR 2 to 3 (Target INR of 2.5) Note: For patients treated with VKA drugs, such as warfarin, the [place] [employer] 2012 Guideline recommends [...] Chest 2012, 141:7S-47S Diogenes RESENDIZ et al. [facility] 2017, 70: 252-289 Performed By: #### CBC, PT, CMP, MG1, PHOS #### [facility] [address] [place], [place] [address] COMP METABOLIC PANEL Collected: 10/22/2017 Status: F Source: [place] 4:12 AM [facility] REPOSITORY TYPE CODE TESTS RESULT OUT OF REFERENCE UNITS RANGE LAB TP 6.3-8.0 g/dL Low Protein, Total 5.1 LAB ALB 3.9-4.9 g/dL Low Albumin 3.5 LAB CA 8.5-10.2 mg/dL Calcium, Total 8.5 LAB TBIL 0.2-1.3 mg/dL Bilirubin, Total 0.4 LAB ALKP 32-117 U/L Alkaline Phosphatase 38 LAB AST 13-35 U/L AST 19 LAB GLU 74-99 mg/dL Glucose 96 Result Comment: The [place] Diabetes Association (ADA) provides guidance for cutoff [...] Standards of Medical Care in Diabetes 2016, [place] [employer]. Diabetes Care. 2016.39(Suppl 1). LAB [...] #### CBC, PT, CMP, MG1, PHOS #### [facility] [address] [place] [address] MAGNESIUM Collected: 10/22/2017 Status: F Source: [place] 4:12 AM [facility] REPOSITORY TYPE CODE TESTS RESULT OUT OF REFERENCE UNITS RANGE LAB MG 1.7-2.3 mg/dL Magnesium 2.1 Performed By: #### CBC, PT, CMP, MG1, PHOS #### [facility] [address] [place] [address] PHOSPHORUS Collected: 10/22/2017 Status: F Source: [place] 4:12 AM [facility] REPOSITORY TYPE CODE TESTS RESULT OUT OF REFERENCE UNITS RANGE LAB PHOS 2.7-4.8 mg/dL Phosphorus 2.7 Performed By: #### CBC, PT, CMP, MG1, PHOS #### [facility] [address] [place] [address] CONSULT Observed: 10/21/2017 Status: COMPLETED Source: [place] 1:33 PM [facility] REPOSITORY HNO ID: [id number] Author: Rj Muro Service: Neurology Author Type: Physician Type: Consults Filed: 10/22/2017 10:04 AM Note Text: GENERAL NEUROLOGY, INPATIENT INITIAL CONSULT [facility] SERVICE DATE: October 21, 2017 SERVICE TIME: [...] and she was transferred back to the [facility] on 10/19. She also received solumedrol [...] to Warfarin bridging - HIT (heparin-induced thrombocytopenia) ([facility]) - Nontoxic multinodular goiter - Obese [...] (BACTRIM DS,SEPTRA DS) 1 tablet ORAL - sennosides 8.8 mg/5 mL 8.8 mg (SENNA) [...] ? Coordination: Finger-to- nose-finger intact bilaterally and Armv-ex-dpfs intact bilaterally. ? Rapid Alternating movements: intact [...] setting). 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 There is [...] and she was transferred back to the [facility] on 10/19. # Diffuse alveolar hemorrhage [...] on 10/16 and 10/18. - Transferred to [facility] on 10/19 - Steroids decreased to prednisone 80 mg QD on 10/21 - No hemoptysis or pulmonary symptoms PLAN: - Continue prednisone 80 mg QD and will taper according to hematology recs - Increase solumedrol to 250 if hemoptysis recurs and persists. - CBC daily - [facility] for [facility] AC ? #Left [...] October 21, 2017 TIME: 8:51 AM PAGER: [phone] I have reviewed the progress note documented by the resident, and I personally confirmed/participated in the fernandes components. I evaluated and examined the patient with the resident team and reviewed the relevant data. I have discussed the case and management of the patient's care with the healthcare team, including residents, nursing, case assistant and the patient. Breathing ok DAH resolved Cr up from yesterday but getting volume contraction, @ baseline Her foot numbeness is likely from peripheral neuropathy ? From critical illness vs APLA Would get neuro on board. Home dose diuresis after skipping one day Aim for home soon Ranjan matson [id number] 10/21/2017 2:01 PM PROTIME Collected: 10/21/2017 Status: F Source: [place] 3:56 AM [facility] REPOSITORY TYPE CODE TESTS RESULT OUT OF RANGE REFERENCE UNITS LAB PSEC 9.7-13.0 sec PT Sec 11.1 LAB INR 0.9-1.3 PT INR 1.1 Result Comment: Vitamin K Antagonist (VKA) Therapeutic Range: INR 2 to 3 (Target INR of 2.5) Note: For patients treated with VKA drugs, such as warfarin, the [place] [employer]icians 2012 Guideline recommends [...] Chest 2012, 141:7S-47S Diogenes RA, et al. [facility] 2017, 70: 252-289 Performed By: #### PT, CBC, CMP, MG1, PHOS #### [facility] [address], [place] [address] CBC Collected: 10/21/2017 Status: F Source: [place] 3:56 AM [facility] REPOSITORY TYPE CODE TESTS RESULT OUT [...] #### PT, CBC, CMP, MG1, PHOS #### [facility] [address], [place] [address] COMP METABOLIC PANEL Collected: 10/21/2017 Status: F Source: [place] 3:56 AM [facility] REPOSITORY TYPE CODE TESTS RESULT OUT OF REFERENCE UNITS RANGE LAB TP 6.3-8.0 g/dL Low Protein, Total 5.9 LAB ALB 3.9-4.9 g/dL Albumin 3.9 LAB CA 8.5-10.2 mg/dL Calcium, Total 8.9 LAB TBIL 0.2-1.3 mg/dL Bilirubin, Total 0.4 LAB ALKP 32-117 U/L Alkaline Phosphatase 45 LAB AST 13-35 U/L AST 15 LAB GLU 74-99 mg/dL Glucose High 113 Result Comment: The [place] Diabetes [employer] (ADA) provides guidance for cutoff [...] Standards of Medical Care in Diabetes 2016, [place] [employer]. Diabetes Care. 2016.39(Suppl 1). LAB [...] #### PT, CBC, CMP, MG1, PHOS #### [facility] [address] [place], [place] [address] MAGNESIUM Collected: 10/21/2017 Status: F Source: [place] 3:56 AM [facility] REPOSITORY TYPE CODE TESTS RESULT OUT OF REFERENCE UNITS RANGE LAB MG 1.7-2.3 mg/dL Magnesium 2.1 Performed By: #### PT, CBC, CMP, MG1, PHOS #### [facility] [address], [place] [address] PHOSPHORUS Collected: 10/21/2017 Status: F Source: [place] 3:56 AM [facility] REPOSITORY TYPE CODE TESTS RESULT OUT OF REFERENCE UNITS RANGE LAB PHOS 2.7-4.8 mg/dL Phosphorus 2.8 Performed By: #### PT, CBC, CMP, MG1, PHOS #### [facility] [address], [place] [address] NURSING PROG Observed: 10/20/2017 Status: COMPLETED Source: [place] 8:22 PM [facility] REPOSITORY HNO ID: [id number] Author: Luca (Rn) JEFF Gross Service: (none) Author Type: Registered Nurse Type: Nursing Progress Note Filed: 10/20/2017 10:04 PM Note Text: Nursing Progress Note Patient Name: Paloma Cannon Patient Location: [place] [address] Daily Note: 820PM, patient c/o of new [...] FONDAPARINUX ASSAY Collected: 10/20/2017 Status: F Source: [place] 3:58 PM [facility] REPOSITORY TYPE CODE TESTS RESULT OUT [...] (body weight >100 kg) once daily, the bmdh-fmyfch-jmotogqi doses provide similar mean steady-state peaks and minimum plasma concentrations across all body weight categories. The mean peak steady-state plasma concentration is in the range of 1.20 to 1.26 mg/L. In these patients, the mean minimum steady-state plasma concentration is in the range of 0.46 to 0.62 mg/L. (Prescribing information for Arixtra from [place], April 2010) Note: The fondaparinux assay is performed by an anti-Xa methodology and that comcomitant therapy with unfractionated or low molecular weight heparin could falsely elevate the fondaparinux levels. Performed By: #### FONDXA #### [facility] [address] [address] CASE MANAGEM Observed: 10/20/2017 Status: COMPLETED Source: [place] 3:22 PM [facility] REPOSITORY HNO ID: [id number] Author: Kalpesh Hoang (Sw) Service: Care Management Author Type: Workday Director Type: Care Mgt Progress Note Filed: 10/20/2017 [...] any weekend questions or needs, contact pager #[phone]. SIGNATURE: JUAN PABLO Glover PATIENT NAME: Paloma Cannon DATE: October 20, 2017 TIME: 3:22 PM PAGER/CONTACT #: [phone] THERAPY NT Observed: 10/20/2017 Status: COMPLETED Source: [place] 10:56 AM [facility] REPOSITORY HNO ID: [id number] Author: Renetta Monroy Service: Physical Therapy Author Type: Physical Therapist Type: Therapy (PT/OT/Speech/Resp) Filed: 10/20/2017 11:09 AM Note Text: Physical Therapy Evaluation SERVICE DATE: 10/20/2017 SERVICE TIME: 0955 to 1040 ROOM: [place] [address] Recommended Discharge Disposition: Outpatient Physical Therapy Recommended [...] (generalized);Unsteadiness on feet Interventions Provided: Evaluation;Therapeutic Activity (53520);Therapeutic Exercise (20087) $ Evaluation-Moderate (64154) Billed Units: 1 unit Therapeutic Exercise (08899) Treatment Minutes: 10 1 unit Skilled Intervention(s): [...] extension -HS curls -Heel raises Therapeutic Activity (14747) Treatment Minutes: 17 1 unit Skilled Intervention(s): [...] Patient Lives With: Significant Other Assistance Available: multimedia educational specialist Entry To Home: No Stairs Number Of Stairs To Bed/Bath: 0 Tub/Shower Type: grab bars in shower and around toilet Equipment Owned: Wheelchair Prior Functional Level: Within Functional Limits OBJECTIVE: Mini Cog Score: 5 (10/20/17 0955) CURRENT FUNCTIONAL STATUS: Current Functional Mobility Assist [...] 20, 2017 TIME: 10:57 AM PAGER/CONTACT #: [phone] PROTIME Collected: 10/20/2017 Status: F Source: [place] 4:15 AM [facility] REPOSITORY TYPE CODE TESTS RESULT OUT OF RANGE REFERENCE UNITS LAB PSEC 9.7-13.0 sec PT Sec 11.5 LAB INR 0.9-1.3 PT INR 1.1 Result Comment: Vitamin K Antagonist (VKA) Therapeutic Range: INR 2 to 3 (Target INR of 2.5) Note: For patients treated with VKA drugs, such as warfarin, the [place] [employer]icians 2012 Guideline recommends [...] Chest 2012, 141:7S-47S Diogenes RA, et al. [facility] 2017, 70: 252-289 Performed By: #### PT, CBC, IRON, CMP, MG1, PHOS, TRANSF, FERR #### [facility] [address], [place] [address] CBC Collected: 10/20/2017 Status: F Source: [place] 4:15 AM [facility] REPOSITORY TYPE CODE TESTS RESULT OUT [...] IRON, CMP, MG1, PHOS, TRANSF, FERR #### [place] [address] [place], [place] [address] IRON AND TIBC Collected: 10/20/2017 Status: F Source: [place] 4:15 AM [facility] REPOSITORY TYPE CODE TESTS RESULT OUT OF REFERENCE UNITS RANGE LAB IRN 41-186 ug/dL Low Iron 28 LAB TIBC 232-386 ug/dL TIBC 300 LAB SAT 15-57 % Low Transferrin Saturatn 9 Performed By: #### PT, CBC, IRON, CMP, MG1, PHOS, TRANSF, FERR #### [facility] [address], [place] [address] COMP METABOLIC PANEL Collected: 10/20/2017 Status: F Source: [place] 4:15 AM [facility] REPOSITORY TYPE CODE TESTS RESULT OUT OF REFERENCE UNITS RANGE LAB TP 6.3-8.0 g/dL Low Protein, Total 5.7 LAB ALB 3.9-4.9 g/dL Albumin 3.9 LAB CA 8.5-10.2 mg/dL Calcium, Total 8.5 LAB TBIL 0.2-1.3 mg/dL Bilirubin, Total 0.4 LAB ALKP 32-117 U/L Alkaline Phosphatase 44 LAB AST 13-35 U/L AST 13 LAB GLU 74-99 mg/dL Glucose High 202 Result Comment: The [place] Diabetes [employer] (ADA) provides guidance for cutoff [...] Standards of Medical Care in Diabetes 2016, [place] [employer]. Diabetes Care. 2016.39(Suppl 1). LAB [...] IRON, CMP, MG1, PHOS, TRANSF, FERR #### [place] [phone] MAGNESIUM Collected: 10/20/2017 Status: F Source: [place] 4:15 AM [facility] REPOSITORY TYPE CODE TESTS RESULT OUT OF REFERENCE UNITS RANGE LAB MG 1.7-2.3 mg/dL Magnesium 2.1 Performed By: #### PT, CBC, IRON, CMP, MG1, PHOS, TRANSF, FERR #### [place] [phone] PHOSPHORUS Collected: 10/20/2017 Status: F Source: [place] 4:15 AM [facility] REPOSITORY TYPE CODE TESTS RESULT OUT OF REFERENCE UNITS RANGE LAB PHOS 2.7-4.8 mg/dL Phosphorus 3.2 Performed By: #### PT, CBC, IRON, CMP, MG1, PHOS, TRANSF, FERR #### [place] [phone] TRANSFERRIN Collected: 10/20/2017 Status: F Source: [place] 4:15 AM [facility] REPOSITORY TYPE CODE TESTS RESULT OUT OF REFERENCE UNITS RANGE LAB TRANSF 200-360 mg/dL Transferrin 235 Performed By: #### PT, CBC, IRON, CMP, MG1, PHOS, TRANSF, FERR #### [place] [phone] FERRITIN Collected: 10/20/2017 Status: F Source: [place] 4:15 AM [facility] REPOSITORY TYPE CODE TESTS RESULT OUT OF REFERENCE UNITS RANGE LAB FERR 14.7-205.1 ng/mL Ferritin 156.0 Performed By: #### PT, CBC, IRON, CMP, MG1, PHOS, TRANSF, FERR #### [place] [phone] HISTORY PHYSICAL Observed: 10/19/2017 Status: COMPLETED Source: [place] 9:19 PM [facility] REPOSITORY HNO ID: [id number] Author: Ranjan Mitchell Service: General Internal Medicine Author Type: Physician Type: HANDP Filed: 10/20/2017 2:40 PM Note Text: HISTORY AND PHYSICAL EXAMINATION [facility] [place] SERVICE DATE: 10/19/2017 SERVICE TIME: 09.21 PM [...] Post phlebitic syndrome She initially presented to [facility] ED with hemoptysis/SOB - found to be in increased work of breathing and low sats - was intubated (10/13/17). Initial labs: Hgb 10.1, WBC 17, INR 2.1 (last dose of Warfarin 5 mg on 10/12/17 evening), Cr 1.32, K 5.0, Bicarb 18, AG 18, Lactate 12.4. Initial ABG on 100% FiO2/PEEP 14: 7.29, 44,79. [facility] for further management of DAH on [...] pain located laterally. . Pain is constant, 8/10, nonpleuritic, reproducible on palpation. Cardiac enzymes and [...] 19, 2017 TIME: 9:19 PM PAGER/CONTACT #: [phone] Please see resident note above. Agree with above. Full addendum to this MICU transfer to follow by Staff Dr. Mitchell. Elida Erickson, Internal Medicine Resident Pager [phone] 10/20/2017 12:06 PM I have reviewed the progress note documented by the resident, and I personally confirmed/participated in the fernandes components. I evaluated and examined the patient with the resident team and reviewed the relevant data. I have discussed the case and management of the patient's care with the healthcare team, including residents, nursing, case assistant and the patient. Breathing ok No pulm crackles, and sats are ok Her legs are bigger had prior R peripheral neuropathy But endorses new symptoms on L side, Will reassess after diuresis. No other focal neuro symptoms to consider stroke Arixtra decreased to 7.5 based on discussion with hematology staff and steroids changed to PO 80 mg Ranjan matson [id number] 10/20/2017 2:40 PM NURSING PROG Observed: 10/19/2017 Status: COMPLETED Source: [place] 7:40 PM [facility] REPOSITORY O ID: [id number] Author: Emilie (Rn) JEFF Robles Service: (none) Author Type: Registered Nurse Type: Nursing Progress Note Filed: 10/19/2017 7:52 PM Note Text: Nursing Progress Note Patient Name: Paloma Cannon Patient Location: G091 017/G091-17 Transfer Note: Patient transferred into room/unit G91-17 in stable condition. Actions taken: No futher actions taken at this time. Will continue to monitor and check with patient. Patient belongings with patient. Patient oriented to room and nursing call button. This note was completed by: Emilie Robles RN NURSING PROG Observed: 10/19/2017 Status: COMPLETED Source: [place] 6:37 PM [facility] REPOSITORY HNO ID: [id number] Author: Opal SanchezRnDevonte Eric RN Service: Nursing Author Type: Registered Nurse Type: Nursing Progress Note Filed: 10/19/2017 7:37 PM Note Text: Nursing Progress Note Patient Name: Paloma Cannon Patient Location: [place] [address]/[facility]- Transfer Note: Report called to Lisbet Sanchez ( accepting nursse) on G91. Patient to be transferred to [facility] and is in stable condition. The patient's spouse was called and given the number to 1 unit and informed of the transfer. His questions were answered. Belongings sent with her include: glasses, glasses case, laptop computer and charging cord, cell phone and charging cord, hat, backpack and body spray. The patient has transfer orders and the note of sign out to GIILO team is completed. At 19:28pm transferred in stable condition to [facility] with all belongings. This note was completed by: Opal Eric RN PLAN OF CARE Observed: 10/19/2017 Status: COMPLETED Source: [place] 5:03 PM [facility] REPOSITORY HNO ID: [id number] Author: Giovanny Blanco Service: Critical Care Author Type: Resident Type: Plan of Care Filed: 10/19/2017 5:03 PM Note Text: Patient to be transferred out of MICU to [facility]. Signout given to GIILO. Giovanny Blanco MD October 19, 2017 5:03 PM CASE MANAGEM Observed: 10/19/2017 Status: COMPLETED Source: [place] 12:41 PM [facility] REPOSITORY HNO ID: [id number] Author: Radha (Rn) JEFF Hope Service: Case Management Author Type: Registered Nurse Type: Care Mgt Progress Note Filed: 10/19/2017 12:42 PM Note Text: CARE MANAGEMENT PROGRESS NOTE SERVICE DATE: 10/19/2017 SERVICE TIME: 12:41 PM LOS: 6 days Needs Prior to Discharge: To Be Determined Anticipate transfer to [facility]. D/C needs and date TBD. SIGNATURE: Radha Hope RN PATIENT NAME: Paloma Cannon DATE: October 19, 2017 TIME: 12:41 PM PAGER/CONTACT #: [phone] CBC Collected: 10/19/2017 Status: F Source: [place] 12:34 PM [facility] REPOSITORY TYPE CODE TESTS RESULT OUT [...] Absolute nRBC Performed By: #### CBC #### [facility] [address], [place] [address] PROGRESS Observed: 10/19/2017 Status: COMPLETED Source: [place] 11:19 AM [facility] REPOSITORY HNO ID: [id number] Author: Stephane Austin Service: Critical Care Author Type: Physician Type: Progress Notes Filed: 10/19/2017 1:24 PM Note Text: MICU PROGRESS NOTE WITH COORD CARE Primary Service: Follansbee Team SERVICE DATE: 10/19/2017 SERVICE TIME: 0700 [...] for chronic LE edema - Transfer to [facility] SUBJECTIVE: - No acute events overnight, [...] bilateral iliac stents and IVC endograft, on termite control technician AC with warfarin, plasmapharesis q2 weeks, prednisone [...] bilateral iliac stents and IVC endograft, [facility] AC with warfarin, plasmapharesis q2 weeks, prednisone [...] 19, 2017 TIME: 11:19 AM PAGER/CONTACT #: [phone] [facility] STAFF PHYSICIAN NOTE OF PERSONAL INVOLVEMENT [...] bilateral iliac stents and IVC endograft, on [facility] AC with warfarin, plasmapharesis q2 weeks, prednisone [...] bilateral iliac stents and IVC endograft, on [facility] AC with warfarin, plasmapharesis q2 weeks, prednisone 5 mg qD); aslo has Hx of HIT Dx 2014 by [facility]OWN Plan: - Consult hematology, appreciate recs - PLEX (10/16 and 10/18) - Continue high dose methylpred Prophylactic: - PPI FULL CODE Problem list and plan/comments by problem: Active Hospital Problems as of 10/19/2017 Noted - Resolved Hospital APS (antiphospholipid syndrome) ([facility]) 11/29/2016 - Present Current Assessment AND [...] (HCC) 03/24/2017 - Present Renal vein thrombosis ([facility]) 03/24/2017 - Present This patient has [...] minutes. SIGNATURE: Stephane Austin MD [facility] PAGER:[phone] DATE of SERVICE: October 19, 2017 TIME of SERVICE: 1:24 PM CONSULT PROG Observed: 10/19/2017 Status: COMPLETED Source: [place] 10:35 AM [facility] REPOSITORY O ID: [id number] Author: Juan Christopher (Fel) Service: Hematology/Oncology Author [...] MD Fellow, Hematology and Medical Oncology Pager: [phone] PROTIME Collected: 10/19/2017 Status: F Source: [place] 4:48 AM [facility] [place] REPOSITORY TYPE CODE TESTS RESULT OUT OF RANGE REFERENCE UNITS LAB PSEC 9.7-13.0 sec PT Sec 11.4 LAB INR 0.9-1.3 PT INR 1.1 Result Comment: Vitamin K Antagonist (VKA) Therapeutic Range: INR 2 to 3 (Target INR of 2.5) Note: For patients treated with VKA drugs, such as warfarin, the [place] 2012 Guideline recommends [...] Chest 2012, 141:7S-47S Diogenes RA, et al. [facility] 2017, 70: 252-289 Performed By: #### PT #### [facility] [address] [place] [address] PROTIME Collected: 10/18/2017 Status: F Source: [place] 11:25 PM [facility] REPOSITORY TYPE CODE TESTS RESULT OUT OF RANGE REFERENCE UNITS LAB PSEC 9.7-13.0 sec PT Sec 11.7 LAB INR 0.9-1.3 PT INR 1.1 Result Comment: Vitamin K Antagonist (VKA) Therapeutic Range: INR 2 to 3 (Target INR of 2.5) Note: For patients treated with VKA drugs, such as warfarin, the [place] 2012 Guideline recommends [...] Chest 2012, 141:7S-47S Diogenes RA, et al. [facility] 2017, 70: 252-289 Performed By: #### PT, CMP, MG1, PHOS, CBC #### [facility] [address] [place], [place] [address] COMP METABOLIC PANEL Collected: 10/18/2017 Status: F Source: [place] 11:25 PM [facility] [place] REPOSITORY TYPE CODE TESTS RESULT OUT OF REFERENCE UNITS RANGE LAB TP 6.3-8.0 g/dL Low Protein, Total 5.7 LAB ALB 3.9-4.9 g/dL Low Albumin 3.8 LAB CA 8.5-10.2 mg/dL Low Calcium, Total 8.4 LAB TBIL 0.2-1.3 mg/dL Bilirubin, Total 0.7 LAB ALKP 32-117 U/L Alkaline Phosphatase 45 LAB AST 13-35 U/L AST 16 LAB GLU 74-99 mg/dL Glucose High 195 Result Comment: The [place] [employer] (ADA) provides guidance for cutoff [...] Standards of Medical Care in Diabetes 2016, [place] [employer]. Diabetes Care. 2016.39(Suppl 1). LAB [...] #### PT, CMP, MG1, PHOS, CBC #### [facility] [address] [place] [address] MAGNESIUM Collected: 10/18/2017 Status: F Source: [place] 11:25 PM [facility] REPOSITORY TYPE CODE TESTS RESULT OUT OF REFERENCE UNITS RANGE LAB MG 1.7-2.3 mg/dL Magnesium 2.1 Performed By: #### PT, CMP, MG1, PHOS, CBC #### [facility] [address] [place], [place] [address] PHOSPHORUS Collected: 10/18/2017 Status: F Source: [place] 11:25 PM [facility] REPOSITORY TYPE CODE TESTS RESULT OUT OF REFERENCE UNITS RANGE LAB PHOS 2.7-4.8 mg/dL Phosphorus 3.3 Performed By: #### PT, CMP, MG1, PHOS, CBC #### [facility] [address], [place] [address] CBC Collected: 10/18/2017 Status: F Source: [place] 11:25 PM [facility] [place] REPOSITORY TYPE CODE TESTS RESULT OUT OF [...] #### PT, CMP, MG1, PHOS, CBC #### [facility] [address] [place] [address] FONDAPARINUX ASSAY Collected: 10/18/2017 Status: F Source: [place] 3:54 PM [facility] REPOSITORY TYPE CODE TESTS RESULT OUT OF REFERENCE UNITS RANGE LAB JEF 0.00 mg/L Fondaparinux High 1.69 Performed By: #### FONDXA #### [facility] [address] [place] [address] PROGRESS Observed: 10/18/2017 Status: COMPLETED Source: [place] 3:17 PM [facility] REPOSITORY HNO ID: [id number] Author: Carmita (Rn) JEFF Verdin Service: (none) Author Type: Registered Nurse Type: Progress Notes Filed: 10/18/2017 3:18 PM Note Text: Opened in error.Carmita Verdin RN US ABD SPLEEN Observed: 10/18/2017 Status: F Source: [place] 1:12 PM [facility] [place] REPOSITORY * * *Final Report* * * DATE OF EXAM: Oct 18 2017 1:12PM [facility] - US ABD SPLEEN / PROCEDURE [...] SPLENOMEGALY, SIMILAR TO CT 02/03/2017. NO LESION. Dopeman: [email or web address] Transcribe Date/Time: Oct 18 2017 1:30P Dictated by : FRANTZ MONROY MD This examination was interpreted and the report reviewed and electronically signed by: CAROLYN YEBOAH MD on Oct 18 2017 1:44PM EST [id number] PROCEDURE Observed: 10/18/2017 Status: COMPLETED Source: [place] 1:07 PM [facility] REPOSITORY O ID: [id number] Author: Zahra Wallace Service: Apheresis Author Type: [...] Completed by Apheresis Nurse: Devi Fernandes RN [facility] STAFF PHYSICIAN NOTE OF PERSONAL INVOLVEMENT [...] MD October 18, 2017 3:10 PM Pager: [phone] PROGRESS Observed: 10/18/2017 Status: COMPLETED Source: [place] 12:55 PM [facility] REPOSITORY HNO ID: [id number] Author: Stephane Austin Service: Critical Care Author Type: Physician Type: Progress Notes Filed: 10/18/2017 9:21 PM Note Text: MICU PROGRESS NOTE WITH [facility] Primary Service: Follansbee Team SERVICE DATE: 10/18/2017 SERVICE TIME: 0700 [...] bilateral iliac stents and IVC endograft, on termite control technician AC with warfarin, plasmapharesis q2 weeks, prednisone [...] bilateral iliac stents and IVC endograft, on [facility] AC with warfarin, plasmapharesis q2 weeks, prednisone [...] tablet (BACTRIM DS,SEPTRA DS) 1 tablet ORAL -WE-FR potassium chloride ER 40 mEq tab(s) (K-DUR, [...] 18, 2017 TIME: 12:55 PM PAGER/CONTACT #: [phone] [facility] STAFF PHYSICIAN NOTE OF PERSONAL INVOLVEMENT [...] bilateral iliac stents and IVC endograft, on termite control technician AC with warfarin, plasmapharesis q2 weeks, prednisone [...] bilateral iliac stents and IVC endograft, on [facility] AC with 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 SIGNATURE: Stephane Austin MD [facility] PAGER:[phone] DATE of SERVICE: October 18, 2017 TIME of SERVICE: 9:21 PM CBC Collected: 10/18/2017 Status: F Source: [place] 11:47 AM [facility] REPOSITORY TYPE CODE TESTS RESULT OUT [...] nRBC <0.01 Performed By: #### CBC #### [facility] [address] [place], [place] [address] CNOVSP Observed: 10/18/2017 Status: COMPLETED Source: [place] 10:00 AM [facility] REPOSITORY Visit (SP) Office (HPACMN) DAVISPALOMA Aguilar ([id number]) 1990 F PTR Date Time Provider Department 10/18/17 10:00 AM [facility] D[facility]K [facility] During your visit today, we recorded the following information about you: Carmita Verdin RN, RN 10/18/2017 3:18 PM Signed Opened in error.Carmita Verdin RN Referring Provider: LISSETH CLAUDIO [[id number]] Allergies As of Date: 10/18/2017 Noted Allergy [...] Fully Assessed Primary Visit Diagnosis:APS (antiphospholipid syndrome) ([facility]) [D68.61] Prescriptions as of 10/18/2017 Sig: [...] More... Acute on chronic diastolic congestive heart nea*INVALID FOR*01/11/2017 More... APS (antiphospholipid syndrome) (HCC) [D68.61] [...] CONSULT PROG Observed: 10/18/2017 Status: COMPLETED Source: [place] 9:32 AM [facility] REPOSITORY HNO ID: [id number] Author: Dominique Rios Service: Hematology/Oncology Author Type: [...] Lymph 1.00 - 4.00 k/uL 0.04 (L) Owen% % 3.9 Abs Owen <0.87 k/uL 0.30 Eosin% % 0.0 Abs [...] MD Fellow, Hematology and Medical Oncology Pager: [phone] [facility] STAFF PHYSICIAN NOTE OF PERSONAL INVOLVEMENT [...] with questions. SIGNATURE: Dominique Rios DO PAGER: [phone] DATE of SERVICE: October 18, 2017 TIME of SERVICE: 6:15 PM CBC Collected: 10/18/2017 Status: F Source: [place] 12:29 AM [facility] REPOSITORY TYPE CODE TESTS RESULT [...] #### CBC, PT, CMP, MG1, PHOS #### [facility] [address] [place], [place] [address] PROTIME Collected: 10/18/2017 Status: F Source: [place] 12:29 AM [facility] REPOSITORY TYPE CODE TESTS RESULT OUT OF RANGE REFERENCE UNITS LAB PSEC 9.7-13.0 sec PT Sec 11.5 LAB INR 0.9-1.3 PT INR 1.1 Result Comment: Vitamin K Antagonist (VKA) Therapeutic Range: INR 2 to 3 (Target INR of 2.5) Note: For patients treated with VKA drugs, such as warfarin, the [place] [employer] 2012 Guideline recommends [...] Chest 2012, 141:7S-47S Diogenes RESENDIZ et al. [facility] 2017, 70: 252-289 Performed By: #### CBC, PT, CMP, MG1, PHOS #### [facility] [address] [place], [place] [address] COMP METABOLIC PANEL Collected: 10/18/2017 Status: F Source: [place] 12:29 AM [facility] REPOSITORY TYPE CODE TESTS RESULT [...] mg/dL Glucose High 143 Result Comment: The [place] [employer] (ADA) provides guidance for cutoff [...] Standards of Medical Care in Diabetes 2016, [place] [employer]. Diabetes Care. 2016.39(Suppl 1). LAB [...] #### CBC, PT, CMP, MG1, PHOS #### [facility] [address] [place] [address] MAGNESIUM Collected: 10/18/2017 Status: F Source: [place] 12:29 AM [facility] REPOSITORY TYPE CODE TESTS RESULT OUT OF REFERENCE UNITS RANGE LAB MG 1.7-2.3 mg/dL High Magnesium 2.5 Performed By: #### CBC, PT, CMP, MG1, PHOS #### [facility] [address] [place] [address] PHOSPHORUS Collected: 10/18/2017 Status: F Source: [place] 12:29 AM [facility] REPOSITORY TYPE CODE TESTS RESULT OUT OF REFERENCE UNITS RANGE LAB PHOS 2.7-4.8 mg/dL Phosphorus 4.5 Performed By: #### CBC, PT, CMP, MG1, PHOS #### [facility] [address] [place] [address] PLAN OF CARE Observed: 10/17/2017 Status: COMPLETED Source: [place] 6:06 PM [facility] REPOSITORY HNO ID: [id number] Author: Aline Leblanc (Pharmacist) Service: Pharmacy Author Type: Pharmacist Type: Plan of Care Filed: 10/19/2017 12:16 PM Note Text: MEDICATION HISTORY AND MEDICATION RECONCILIATION Patient Name:.Paloma Cannon : 1990 Source of history:Patient: Reliability of source: Appears reliable, clearly identified: Medication name, Medication dose and Medication frequency Medication Nonadherence Identified: No barriers noted The above information represents the best possible medication history: Yes Reconciliation completed? Yes All ASSET COORDINATOR medications addressed by LIP Additional comments: Held medication: Warfarin 2.5 mg tablet Active Medications ASSET COORDINATOR: Amlodipine 5 m tabs po daily, hold [...] See Comments Elevated cardiac enzymes Preferred Pharmacy: [facility] [place], [place] [address] [phone] [facility] - [phone] Current ASSET COORDINATOR Medications: Prior to Admission medications as of [...] needed. Unknown at Unknown time Jcarlos Rand ([employer]) October 17, 2017 6:07 PM ALINE LEBLANC, PHARMACIST October 19, 2017 12:15 PM CASE MANAGEM Observed: 10/17/2017 Status: COMPLETED Source: [place] 11:41 AM [facility] REPOSITORY HNO ID: [id number] Author: Radha Hope RN Service: Case Management Author Type: Registered Nurse Type: Care Mgt Progress Note Filed: 10/17/2017 11:41 AM Note Text: CARE MANAGEMENT PROGRESS NOTE SERVICE DATE: 10/17/2017 SERVICE TIME: 11:41 AM LOS: 4 days Needs Prior to Discharge: To Be Determined Anticipate transfer to [facility]. D/C needs and date TBD. SIGNATURE: Radha Hope RN PATIENT NAME: Paloma Cannon DATE: October 17, 2017 TIME: 11:41 AM PAGER/CONTACT #: [phone] NUTRITION Observed: 10/17/2017 Status: COMPLETED Source: [place] 11:35 AM [facility] REPOSITORY HNO ID: [id number] Author: Edel Guillen Service: NST-Nutrition Support Team [...] bilateral iliac stents and IVC endograft, on termite control technician AC with warfarin, plasmapharesis q2 weeks, prednisone [...] 15 oz) 10/18/2016 114.306 kg 44.64 ? Clio body weight 52.3 kg Dosing Weight: 101 kg Estimated kilocalorie needs: 1738-3338 kilocalories determined by 11-14 kcal/kg Estimated protein needs: 78-105 grams determined by 1.5-2.0 g/kg Clio weight Estimated fluid needs: per MD NUTRITION [...] No functional impairment, normal with no limitations ASSET COORDINATOR per pt Temperature Max in 24 hours: [...] Type: Re-assess/15 min 2 units SIGNATURE: Edel Guillen, RD, LD, [facility] PATIENT NAME: Paloma Cannon DATE: October 17, 2017 TIME: 8:15 AM PAGER: [phone] XR CHEST 1V FRONTAL Observed: 10/17/2017 Status: F Source: [facility] 11:19 AM [facility] REPOSITORY * * *Final Report* * * [...] silhouette: The cardiomediastinal silhouette is unchanged. Other: Dopeman: PSCB Transcribe Date/Time: Oct 17 2017 12:25P Dictated by : DANNY COSTA MD This examination was interpreted and the report reviewed and electronically signed by: DANNY COSTA MD on Oct 17 2017 12:26PM EST [id number] CK, TOTAL AND CKMB Collected: 10/17/2017 Status: F Source: [place] 10:42 AM [facility] REPOSITORY TYPE CODE TESTS RESULT OUT [...] U/L. Performed By: #### CKCKMB, AMINAH #### [facility] [address] [place], [place] [address] TROPONIN T Collected: 10/17/2017 Status: F Source: [place] 10:42 AM [facility] REPOSITORY TYPE CODE TESTS RESULT OUT OF REFERENCE UNITS RANGE LAB TROPT 0.000-0.029 ng/mL Troponin T <0.010 Performed By: #### CKCKMB, AMINAH #### [facility] [address] [place], [place] [address] CONSULT PROG Observed: 10/17/2017 Status: COMPLETED Source: [place] 10:27 AM [facility] REPOSITORY HNO ID: [id number] Author: Dominique Rios Service: Hematology/Oncology Author Type: [...] - 4.00 k/uL 0.07 (L) 0.04 (L) Owen% % 5.2 3.9 Abs Owen <0.87 k/uL 0.30 0.30 Eosin% % 0.0 [...] MD Fellow, Hematology and Medical Oncology Pager: [phone] [facility] STAFF PHYSICIAN NOTE OF PERSONAL INVOLVEMENT [...] service today. SIGNATURE: Dominique Rios DO PAGER: [phone] DATE of SERVICE: October 17, 2017 TIME of SERVICE: 7:51 PM 12 LEAD ELECTROCARDIOGRAM Observed: 10/17/2017 Status: F Source: [place] 8:19 AM [facility] Cardiovascular Services [address] [place] [id number] 12 Lead EKG 10/13/17 1016 MR#: [id number] Acct: [id number] Name: PALOMA CANNON Rep #: [id number] : 1990 27 From: Eddie Kwon MD [...] Left ventricular hypertrophy Abnormal ECG Confirmed by RUSTAM MAST, EDDIE ([id number]), loan expeditor FARRUKH CHAVEZ ([id number]) on 10/17/2017 8:19:20 AM Referred By: Magdalena Lewis Confirmed By:EDDIE KWON MD 10/17/17 0819 Date Eddie Kwon MD CC: Peyton Rogers MD; Lydia Harley MD Signed PROGRESS Observed: 10/17/2017 Status: COMPLETED Source: [place] 7:06 AM [facility] REPOSITORY O ID: [id number] Author: Stephane Austin Service: Critical Care Author Type: Physician Type: Progress Notes Filed: 10/17/2017 5:17 PM Note Text: MICU PROGRESS NOTE WITH [facility] Primary Service: Follansbee Team SERVICE DATE: 10/17/2017 SERVICE TIME: 7:07 [...] bilateral iliac stents and IVC endograft, on termite control technician AC with warfarin, plasmapharesis q2 weeks, prednisone [...] bilateral iliac stents and IVC endograft, on termite control technician AC with warfarin, plasmapharesis q2 weeks, prednisone [...] 17, 2017 TIME: 7:06 AM PAGER/CONTACT #: [phone] [facility] STAFF PHYSICIAN NOTE OF PERSONAL INVOLVEMENT [...] bilateral iliac stents and IVC endograft, on termite control technician AC with warfarin, plasmapharesis q2 weeks, prednisone [...] bilateral iliac stents and IVC endograft, on [facility] AC with 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 SIGNATURE: Stephane Austin MD [facility] PAGER:[phone] DATE of SERVICE: October 17, 2017 TIME of SERVICE: 5:17 PM CBC AND DIFFERENTIAL Collected: 10/16/2017 Status: F Source: [place] 11:30 PM [facility] REPOSITORY TYPE [...] Abs Low Lymph 0.04 LAB AMONO % Owen% 3.9 LAB AAMONO <0.87 k/uL Abs Owen 0.30 LAB AEOS % Eosin% 0.0 LAB AAEOS <0.46 k/uL Abs Eosin <0.03 LAB ABASO % Baso% 0.1 LAB AABASO <0.11 k/uL Abs Baso <0.03 LAB AUNRBC 0 /100 WBC NRBCs High 0.4 LAB ABNRBC <0.01 k/uL High Absolute nRBC 0.03 LAB DTYP DTYPE Auto Diff Performed By: #### CBCDIF, PT, CMP, MG1, PHOS #### [facility] [address] [place], [place] [address] PROTIME Collected: 10/16/2017 Status: F Source: [place] 11:30 PM [facility] REPOSITORY TYPE CODE TESTS RESULT OUT OF RANGE REFERENCE UNITS LAB PSEC 9.7-13.0 sec PT Sec 11.4 LAB INR 0.9-1.3 PT INR 1.1 Result Comment: Vitamin K Antagonist (VKA) Therapeutic Range: INR 2 to 3 (Target INR of 2.5) Note: For patients treated with VKA drugs, such as warfarin, the [place] [employer]icians 2012 Guideline recommends [...] Chest 2012, 141:7S-47S Diogenes RESENDIZ, et al. [facility] 2017, 70: 252-289 Performed By: #### CBCDIF, PT, CMP, MG1, PHOS #### [facility] [address] [place], [place] [address] COMP METABOLIC PANEL Collected: 10/16/2017 Status: F Source: [place] 11:30 PM [facility] REPOSITORY TYPE CODE TESTS RESULT [...] mg/dL Glucose High 138 Result Comment: The [place] [employer] (ADA) provides guidance for cutoff [...] Standards of Medical Care in Diabetes 2016, [place] [employer]. Diabetes Care. 2016.39(Suppl 1). LAB [...] #### CBCDIF, PT, CMP, MG1, PHOS #### [facility] [address] [place] [address] MAGNESIUM Collected: 10/16/2017 Status: F Source: [place] 11:30 PM [facility] REPOSITORY TYPE CODE TESTS RESULT OUT OF REFERENCE UNITS RANGE LAB MG 1.7-2.3 mg/dL High Magnesium 2.5 Performed By: #### CBCDIF, PT, CMP, MG1, PHOS #### [place] [address] PHOSPHORUS Collected: 10/16/2017 Status: F Source: [place] 11:30 PM [facility] REPOSITORY TYPE CODE TESTS RESULT OUT OF REFERENCE UNITS RANGE LAB PHOS 2.7-4.8 mg/dL High Phosphorus 4.9 Performed By: #### CBCDIF, PT, CMP, MG1, PHOS #### [place] [address] FONDAPARINUX ASSAY Collected: 10/16/2017 Status: F Source: [place] 3:00 PM [facility] REPOSITORY TYPE CODE TESTS RESULT OUT [...] (body weight >100 kg) once daily, the pedy-bcuxra-chlctmyx doses provide similar mean steady-state peaks and minimum plasma concentrations across all body weight categories. The mean peak steady-state plasma concentration is in the range of 1.20 to 1.26 mg/L. In these patients, the mean minimum steady-state plasma concentration is in the range of 0.46 to 0.62 mg/L. (Prescribing information for Arixtra from [place], April 2010) Note: The fondaparinux assay is performed by an anti-Xa methodology and that comcomitant therapy with unfractionated or low molecular weight heparin could falsely elevate the fondaparinux levels. Performed By: #### FONDXA #### [facility] [address] [place] [address] CASE MANAGEM Observed: 10/16/2017 Status: COMPLETED Source: [place] 2:57 PM [facility] REPOSITORY HNO ID: [id number] Author: Radha (Rn) JEFF Hope Service: Case [...] 16, 2017 TIME: 2:57 PM PAGER/CONTACT #: [phone] CBC Collected: 10/16/2017 Status: F Source: [place] 12:46 PM [facility] REPOSITORY TYPE CODE TESTS RESULT OUT [...] Absolute nRBC Performed By: #### CBC #### [facility] [address] [place], [place] [address] CONSULT PROG Observed: 10/16/2017 Status: COMPLETED Source: [place] 10:43 AM [facility] [place] REPOSITORY HNO ID: [id number] Author: Dominique Rios Service: Hematology/Oncology Author Type: [...] this interval not displayed. Recent Labs 10/15/17230910/14/17 22310/13/17 23110/13/17 1342 10/13/17 1300 NA 134* 135* [...] 0.4 0.5 1.2 -- 0.6 Recent Labs 10/15/17230910/14/175 10/13/17 2315 10/13/17 1846 10/13/17 1300 09/29/17 [...] MD Fellow, Hematology and Medical Oncology Pager: [phone] [facility] STAFF PHYSICIAN NOTE OF PERSONAL INVOLVEMENT [...] with you. SIGNATURE: Dominique Rios DO PAGER: [phone] DATE of SERVICE: October 16, 2017 TIME of SERVICE: 7:15 PM PROCEDURE Observed: 10/16/2017 Status: COMPLETED Source: [place] 10:21 AM [facility] REPOSITORY O ID: [id number] Author: Lisseth Claudio MD Service: Apheresis Author [...] Completed by Apheresis Nurse: Lou Juarez RN [facility] STAFF PHYSICIAN NOTE OF PERSONAL INVOLVEMENT [...] MD October 16, 2017 3:10 PM Pager: [phone] PROGRESS Observed: 10/16/2017 Status: COMPLETED Source: [place] 6:45 AM [facility] REPOSITORY O ID: [id number] Author: Stephane Austni Service: Critical Care Author Type: Physician Type: Progress Notes Filed: 10/16/2017 3:53 PM Note Text: MICU PROGRESS NOTE WITH [facility] Primary Service: Follansbee Team SERVICE DATE: 10/16/2017 SERVICE TIME: 6:46 [...] bilateral iliac stents and IVC endograft, on termite control technician AC with warfarin, plasmapharesis q2 weeks, prednisone [...] bilateral iliac stents and IVC endograft, on [facility] AC with warfarin, plasmapharesis q2 weeks, prednisone [...] 16, 2017 TIME: 6:46 AM PAGER/CONTACT #: [phone] [facility] STAFF PHYSICIAN NOTE OF PERSONAL INVOLVEMENT [...] bilateral iliac stents and IVC endograft, on [facility] AC with warfarin, plasmapharesis q2 weeks, prednisone [...] bilateral iliac stents and IVC endograft, on termite control technician AC with 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 SIGNATURE: Stephane Austin MD [facility] PAGER:[phone] DATE of SERVICE: October 16, 2017 TIME of SERVICE: 3:52 PM CBC Collected: 10/16/2017 Status: F Source: [place] 5:45 AM [facility] REPOSITORY TYPE CODE TESTS RESULT OUT [...] nRBC 0.04 Performed By: #### CBC #### [facility] [address] [place], [place] [address] PROTIME Collected: 10/15/2017 Status: F Source: [place] 11:10 PM [facility] REPOSITORY TYPE CODE TESTS RESULT OUT OF RANGE REFERENCE UNITS LAB PSEC 9.7-13.0 sec High PT Sec 14.0 LAB INR 0.9-1.3 High PT INR 1.4 Result Comment: Vitamin K Antagonist (VKA) Therapeutic Range: INR 2 to 3 (Target INR of 2.5) Note: For patients treated with VKA drugs, such as warfarin, the [employer] 2012 Guideline recommends [...] Chest 2012, 141:7S-47S Diogenes RESENDIZ et al. [facility] 2017, 70: 252-289 Performed By: #### PT, CBCDIF, CMP, MG1, PHOS #### [facility] [address] [place] [id number] CBC AND DIFFERENTIAL Collected: 10/15/2017 Status: F Source: [place] 11:10 PM [facility] REPOSITORY TYPE CODE TESTS RESULT OUT [...] Abs Low Lymph 0.07 LAB AMONO % Owen% 5.2 LAB AAMONO <0.87 k/uL Abs Owen 0.30 LAB AEOS % Eosin% 0.0 LAB AAEOS <0.46 k/uL Abs Eosin <0.03 LAB ABASO % Baso% 0.0 LAB AABASO <0.11 k/uL Abs Baso <0.03 LAB AUNRBC 0 /100 WBC NRBCs High 0.5 LAB ABNRBC <0.01 k/uL High Absolute nRBC 0.03 LAB DTYP DTYPE Auto Diff Performed By: #### PT, CBCDIF, CMP, MG1, PHOS #### [facility] [address] [place], [place] [address] COMP METABOLIC PANEL Collected: 10/15/2017 Status: F Source: [place] 11:10 PM [facility] [place] REPOSITORY TYPE CODE TESTS RESULT OUT OF REFERENCE UNITS RANGE LAB TP 6.3-8.0 g/dL Low Protein, Total 5.7 LAB ALB 3.9-4.9 g/dL Low Albumin 3.6 LAB CA 8.5-10.2 mg/dL Calcium, Total 8.8 LAB TBIL 0.2-1.3 mg/dL Bilirubin, Total 0.4 LAB ALKP 32-117 U/L Alkaline Phosphatase 55 LAB AST 13-35 U/L AST 13 LAB GLU 74-99 mg/dL Glucose High 132 Result Comment: The [place] [employer] (ADA) provides guidance for cutoff [...] Standards of Medical Care in Diabetes 2016, [place] [employer]. Diabetes Care. 2016.39(Suppl 1). LAB [...] #### PT, CBCDIF, CMP, MG1, PHOS #### [place] [address] MAGNESIUM Collected: 10/15/2017 Status: F Source: [place] 11:10 PM [facility] REPOSITORY TYPE CODE TESTS RESULT OUT OF REFERENCE UNITS RANGE LAB MG 1.7-2.3 mg/dL High Magnesium 2.6 Performed By: #### PT, CBCDIF, CMP, MG1, PHOS #### [place] [address] PHOSPHORUS Collected: 10/15/2017 Status: F Source: [place] 11:10 PM [facility] REPOSITORY TYPE CODE TESTS RESULT OUT OF REFERENCE UNITS RANGE LAB PHOS 2.7-4.8 mg/dL High Phosphorus 6.5 Performed By: #### PT, CBCDIF, CMP, MG1, PHOS #### [place] [address] CBC Collected: 10/15/2017 Status: F Source: [place] 6:42 PM [facility] REPOSITORY TYPE CODE TESTS RESULT OUT [...] Absolute nRBC Performed By: #### CBC #### [facility] [address] [place], [place] [address] PT MIXING STUDY Collected: 10/15/2017 Status: F Source: [place] 6:42 PM [facility] REPOSITORY TYPE CODE TESTS RESULT OUT [...] is unlikely. Performed By: #### PTMIX #### [facility] [address] [place], [place] [address] CONSULT PROG Observed: 10/15/2017 Status: COMPLETED Source: [place] 1:58 PM [facility] REPOSITORY HNO ID: [id number] Author: Dominique Rios Service: Hematology Author Type: [...] this interval not displayed. Recent Labs 10/14/17 22310/13/17 2315 10/13/17 1342 10/13/17 1300 10/05/17 0504 [...] MD Fellow, Hematology and Medical Oncology Pager: [phone] [facility] STAFF PHYSICIAN NOTE OF PERSONAL INVOLVEMENT [...] with questions. SIGNATURE: Dominique Rios DO PAGER: [phone] DATE of SERVICE: October 15, 2017 TIME of SERVICE: 2:08 PM URINALYSIS Collected: 10/15/2017 Status: F Source: [place] 12:23 PM [facility] REPOSITORY TYPE CODE TESTS RESULT OUT OF RANGE REFERENCE UNITS LAB UCOL Yellow Color Yellow LAB [facility] Clear Clarity Abnormal Cloudy Alert LAB UGLUC Negative mg/dL Glucose, Urine Negative LAB UBIL Negative Bilirubin, Urine Negative LAB UKET Negative Ketones, Urine Negative LAB USPG 1.005-1.030 Specific [place], Ur 1.019 LAB UHGB Negative Abnormal Hemoglobin/Blood, [...] By: #### UA, UCRR, UUNR, UNAR #### [facility] [address] [place], [place] [address] CREATININE,URINE,RAN Collected: Status: F Source: [place] 10/15/2017 12:23 PM [facility] REPOSITORY TYPE CODE TESTS RESULT OUT OF RANGE REFERENCE UNITS LAB UCRR 20-300 mg/dL 71.1 Creatinine,U rine,Ran Performed By: #### UA, UCRR, UUNR, UNAR #### [facility] [address] [place] [id number] UREA NITROGEN,UR,RAN Collected: 10/15/2017 Status: F Source: [place] 12:23 PM [facility] REPOSITORY TYPE CODE TESTS RESULT OUT OF RANGE REFERENCE UNITS LAB UUNR 140-1500 mg/dL Urea 630 Nitrogen,Ur, Ran Performed By: #### UA, UCRR, UUNR, UNAR #### [place] [address] [place] [id number] SODIUM,URINE,RANDOM Collected: Status: F Source: [place] 10/15/2017 12:23 PM [facility] REPOSITORY TYPE CODE TESTS RESULT OUT OF RANGE REFERENCE UNITS LAB UNAR 14-216 mmol/L <20 Sodium,Urine ,Random Performed By: #### UA, UCRR, UUNR, UNAR #### [place] [address] CBC Collected: 10/15/2017 Status: F Source: [place] 12:23 PM [facility] REPOSITORY TYPE CODE TESTS RESULT OUT [...] Absolute nRBC Performed By: #### CBC #### [place] [address] PROGRESS Observed: 10/15/2017 Status: COMPLETED Source: [place] 10:39 AM [facility] REPOSITORY HNO ID: [id number] Author: Hollis Oro Service: Critical Care Author Type: Resident Type: Progress Notes Filed: 10/15/2017 10:52 AM Note Text: 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, on [facility] AC with warfarin, plasmapharesis q2 weeks, prednisone [...] bilateral iliac stents and IVC endograft, on termite control technician AC with warfarin, plasmapharesis q2 weeks, prednisone [...] 15, 2017 TIME: 10:39 AM PAGER/CONTACT #: [phone] CONSULT PROG Observed: 10/15/2017 Status: COMPLETED Source: [place] 9:56 AM [facility] REPOSITORY HNO ID: [id number] Author: Lou Joya (Pharmacist) Service: Pharmacy Author [...] Observed: 10/15/2017 Status: F Source: [facility] 9:13 AM [facility] REPOSITORY * * *Final Report* * * [...] cardiomediastinal silhouette. Other: Cholecystectomy clips again noted. Dopeman: MURTAZA Transcribe Date/Time: Oct 15 2017 11:54A Dictated by : STELLA COSME MD This examination was interpreted and the report reviewed and electronically signed by: STELLA COSME MD on Oct 15 2017 11:55AM EST [id number] PROGRESS Observed: 10/15/2017 Status: COMPLETED Source: [place] 8:00 AM [facility] REPOSITORY [facility] ID: [id number] Author: Kit Castro Service: Critical Care Author [...] showed no clot within the visualized veins Drilling Field Specialist 35 (remains overall stable at this level [...] hemorrhage Antiphopholipid syndrome: + lupus anticoagulant, + iijz-c0-oksewqrorxea, and + anti-cardiolipin antibodies 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 SIGNATURE: Kit Castro MD [facility] PAGER:[phone] CBC Collected: 10/15/2017 Status: F Source: [place] 5:40 AM [facility] [place] REPOSITORY TYPE CODE TESTS RESULT OUT OF [...] Absolute nRBC Performed By: #### CBC #### [facility] [address] [place], [place] [address] PROTIME Collected: 10/14/2017 Status: F Source: [place] 10:35 PM [facility] REPOSITORY TYPE CODE TESTS RESULT OUT OF RANGE REFERENCE UNITS LAB PSEC 9.7-13.0 sec High PT Sec 19.4 LAB INR 0.9-1.3 High PT INR 2.0 Result Comment: Vitamin K Antagonist (VKA) Therapeutic Range: INR 2 to 3 (Target INR of 2.5) Note: For patients treated with VKA drugs, such as warfarin, the [place] [employer]icians 2012 Guideline recommends [...] Chest 2012, 141:7S-47S Diogenes RA, et al. [facility] 2017, 70: 252-289 Performed By: #### PT, CBCDIF, CMP, MG1, PHOS #### [facility] [address] [place], [place] [address] CBC AND DIFFERENTIAL Collected: 10/14/2017 Status: F Source: [place] 10:35 PM [facility] REPOSITORY TYPE CODE TESTS RESULT [...] Abs Low Lymph 0.04 LAB AMONO % Owen% 3.1 LAB AAMONO <0.87 k/uL Abs Owen 0.13 LAB AEOS % Eosin% 0.0 LAB AAEOS <0.46 k/uL Abs Eosin <0.03 LAB ABASO % Baso% 0.0 LAB AABASO <0.11 k/uL Abs Baso <0.03 LAB AUNRBC 0 /100 WBC NRBCs High 1.2 LAB ABNRBC <0.01 k/uL High Absolute nRBC 0.05 LAB DTYP DTYPE Auto Diff Performed By: #### PT, CBCDIF, CMP, MG1, PHOS #### [facility] [address] [place], [place] [address] COMP METABOLIC PANEL Collected: 10/14/2017 Status: F Source: [place] 10:35 PM [facility] REPOSITORY TYPE CODE TESTS RESULT [...] mg/dL Glucose High 124 Result Comment: The [place] Diabetes [employer] (ADA) provides guidance for cutoff [...] Standards of Medical Care in Diabetes 2016, [place] [employer]. Diabetes Care. 2016.39(Suppl 1). LAB [...] has been calibrated to be traceable to [place]. An eGFR <60 mL/min/1.73m2 for >3 months is consistent with chronic kidney disease. Refer to KDOQI guidelines for clinical interpretation. In patients with unstable renal function, e.g. those with acute kidney injury, the eGFR may not accurately reflect actual GFR. Performed By: #### PT, CBCDIF, CMP, MG1, PHOS #### [facility] [address] [place] [address] MAGNESIUM Collected: 10/14/2017 Status: F Source: [place] 10:35 PM [facility] REPOSITORY TYPE CODE TESTS RESULT OUT OF REFERENCE UNITS RANGE LAB MG 1.7-2.3 mg/dL Magnesium 2.2 Performed By: #### PT, CBCDIF, CMP, MG1, PHOS #### [place] [address] PHOSPHORUS Collected: 10/14/2017 Status: F Source: [place] 10:35 PM [facility] REPOSITORY TYPE CODE TESTS RESULT OUT OF REFERENCE UNITS RANGE LAB PHOS 2.7-4.8 mg/dL High Phosphorus 6.9 Performed By: #### PT, CBCDIF, CMP, MG1, PHOS #### [place] [address] CBC Collected: 10/14/2017 Status: F Source: [place] 6:42 PM [facility] REPOSITORY TYPE CODE TESTS RESULT OUT [...] Absolute nRBC Performed By: #### CBC #### [facility] [address] [place], [place] [address] GASA + ALL Collected: 10/14/2017 Status: F Source: [place] FOR 1:33 PM [facility] RADIANCE USE ONLY REPOSITORY TYPE CODE TESTS [...] Art Administration Result Comment: 30% LAB ACBDTE [id number] Notify Date, Art LAB ACBTME [id number] Notify Time, Art Performed By: #### ALLBG #### [facility] [address] [place], [place] [address] CBC Collected: 10/14/2017 Status: F Source: [place] 1:27 PM [facility] REPOSITORY TYPE CODE TESTS RESULT OUT [...] nRBC Performed By: #### CBC, AMINAH #### [facility] [address] [place] [address] TROPONIN T Collected: 10/14/2017 Status: F Source: [place] 1:27 PM [facility] REPOSITORY TYPE CODE TESTS RESULT OUT OF REFERENCE UNITS RANGE LAB TROPT 0.000-0.029 ng/mL Troponin T 0.024 Performed By: #### CBC, AMINAH #### [facility] [address] [place] [address] PROGRESS Observed: 10/14/2017 Status: COMPLETED Source: [place] 12:13 PM [facility] REPOSITORY HNO ID: [id number] Author: Kishore Emerson Service: Critical Care Author [...] 10/14/17 0659 Last data filed at 10/14/17 0600 Gross per 24 hour Intake 2758.6 ml [...] bilateral iliac stents and IVC endograft, on termite control technician AC with warfarin, plasmapharesis q2 weeks, prednisone [...] bilateral iliac stents and IVC endograft, on [facility] AC with warfarin, plasmapharesis q2 weeks, prednisone [...] 14, 2017 TIME: 12:13 PM PAGER/CONTACT #: [phone] NUTRITION Observed: 10/14/2017 Status: COMPLETED Source: [place] 10:33 AM [facility] REPOSITORY HNO ID: [id number] Author: Edel Guillen Service: NST-Nutrition Support Team [...] bilateral iliac stents and IVC endograft, on termite control technician AC with warfarin, plasmapharesis q2 weeks, prednisone [...] lb 15 oz) 10/18/2016 114.306 kg 44.64 [place] body weight 52.3 kg Dosing Weight: 101 kg Estimated kilocalorie needs: 8214-0815 kilocalories determined by 11-14 kcal/kg Estimated protein needs: 78-105 grams determined by 1.5-2.0 g/kg [place] weight Estimated fluid needs: per MD NUTRITION [...] 3 units SIGNATURE: Edel Guillen RD, LD, [facility] PATIENT NAME: Paloma Cannon DATE: October 14, 2017 TIME: 10:34 AM PAGER: [phone] XR CHEST 1V FRONTAL Observed: 10/14/2017 Status: F Source: [facility] 9:16 AM [facility] REPOSITORY * * *Final Report* * * [...] pneumothorax. Cardiomediastinal silhouette: Stable cardiomediastinal silhouette. Other: Dopeman: PSCB Transcribe Date/Time: Oct 14 2017 10:28A Dictated by : STELLA COSME MD This examination was interpreted and the report reviewed and electronically signed by: STELLA COSME MD on Oct 14 2017 10:29AM EST [id number] CONSULT PROG Observed: 10/14/2017 Status: COMPLETED Source: [place] 8:57 AM [facility] REPOSITORY HNO ID: [id number] Author: Dominique Rios Service: Hematology/Oncology Author Type: Physician Type: Consult Progress Note Filed: 10/14/2017 5:02 PM Note Text: ? [facility] DEPARTMENT OF HEMATOLOGIC ONCOLOGY AND BLOOD DISORDERS [...] Lymph 1.00 - 4.00 k/uL 0.11 (L) Owen% % 0.9 Abs Owen <0.87 k/uL 0.11 Eosin% % 0.2 Abs [...] MD Fellow, Hematology and Medical Oncology Pager: [phone] ? [facility] STAFF PHYSICIAN NOTE OF PERSONAL INVOLVEMENT [...] with questions. SIGNATURE: Dominique Rios DO PAGER: [phone] DATE of SERVICE: October 14, 2017 TIME of SERVICE: 5:02 PM PROGRESS Observed: 10/14/2017 Status: COMPLETED Source: [place] 7:58 AM [facility] REPOSITORY HNO ID: [id number] Author: Kit Castro Service: Critical Care Author [...] ventricular systolic function C3 C4 mildly decreased Drilling Field Specialist 36 today (vs. 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 SIGNATURE: Kit Castro MD [facility] PAGER:[phone] CONSULTATION Observed: 10/14/2017 Status: F Source: [place] 5:34 AM [facility] Medical Records Department [address] [place] [id number] Consultation 10/13/17 1113 MR#: [id number] Acct: [id number] Name: PALOMA CANNON Rep #: [id number] : 1990 27 From: Mitch Buchanan MD [...] medical history listed below, who presented to [facility] on 10/13/2017 secondary to acute shortness of [...] syndrome and was recently discharged from the [facility] following plasmapheresis. Patient reportedly has to receive her care at [facility] or [facility]. ER has called for transportation, [...] placement Psychiatric History: No pertinent psych hx COOKER LOADER History: No pertinent COOKER LOADER history Smoking Status: Never smoker - *Family [...] with plasmapheresis. There is no plasmapheresis available [facility]. ER is currently arranging for transportation to [...] long-term issues. Patient was recently admitted at [facility] with a similar type presentation. Would avoid [...] Signed CBC Collected: 10/14/2017 Status: F Source: [place] 4:19 AM [facility] REPOSITORY TYPE CODE TESTS RESULT OUT [...] nRBC Performed By: #### CBC, AMINAH #### [facility] [address] [place] [address] TROPONIN T Collected: 10/14/2017 Status: F Source: [place] 4:19 AM [facility] REPOSITORY TYPE CODE TESTS RESULT OUT OF REFERENCE UNITS RANGE LAB TROPT 0.000-0.029 ng/mL Troponin T 0.028 Performed By: #### CBC, AMINAH #### [facility] [address] [place] [address] GASA + ALL Collected: 10/14/2017 Status: F Source: [place] FOR 12:31 AM [facility] RADIANCE USE ONLY REPOSITORY TYPE CODE TESTS [...] Comment: 40% Performed By: #### ALLBG #### [facility] [address] [place], [place] [address] PROTIME Collected: 10/13/2017 Status: F Source: [place] 11:15 PM [facility] REPOSITORY TYPE CODE TESTS RESULT OUT OF RANGE REFERENCE UNITS LAB PSEC 9.7-13.0 sec High PT Sec 16.7 LAB INR 0.9-1.3 High PT INR 1.7 Result Comment: Vitamin K Antagonist (VKA) Therapeutic Range: INR 2 to 3 (Target INR of 2.5) Note: For patients treated with VKA drugs, such as warfarin, the [place] [employer]icians 2012 Guideline recommends [...] Chest 2012, 141:7S-47S Diogenes RESENDIZ et al. [facility] 2017, 70: 252-289 Performed By: #### PT, CMP, MG1, NTBNP, PHOS, CBCDIF #### [facility] [address] [place], [place] [address] COMP METABOLIC PANEL Collected: 10/13/2017 Status: F Source: [place] 11:15 PM [facility] REPOSITORY TYPE CODE TESTS RESULT [...] mg/dL Glucose High 120 Result Comment: The [place] [employer] (ADA) provides guidance for cutoff [...] Standards of Medical Care in Diabetes 2016, [place] [employer]. Diabetes Care. 2016.39(Suppl 1). LAB [...] PT, CMP, MG1, NTBNP, PHOS, CBCDIF #### [facility] [address] [place] [address] MAGNESIUM Collected: 10/13/2017 Status: F Source: [place] 11:15 [facility] REPOSITORY TYPE CODE TESTS RESULT OUT OF REFERENCE UNITS RANGE LAB MG 1.7-2.3 mg/dL Magnesium 2.0 Performed By: #### PT, CMP, MG1, NTBNP, PHOS, CBCDIF #### [place] [address] NT PRO BNP Collected: 10/13/2017 Status: F Source: [place] 11:15 [facility] REPOSITORY TYPE CODE TESTS RESULT OUT OF REFERENCE UNITS RANGE LAB PBNP <125 pg/mL High PRO B Natr 41668 Peptide Performed By: #### PT, CMP, MG1, NTBNP, PHOS, CBCDIF #### [place] [address] PHOSPHORUS Collected: 10/13/2017 Status: F Source: [place] 11:15 [facility] REPOSITORY TYPE CODE TESTS RESULT OUT OF REFERENCE UNITS RANGE LAB PHOS 2.7-4.8 mg/dL High Phosphorus 5.6 Performed By: #### PT, CMP, MG1, NTBNP, PHOS, CBCDIF #### [place] [address] CBC AND DIFFERENTIAL Collected: 10/13/2017 Status: F Source: [place] 11:15 [facility] REPOSITORY TYPE CODE TESTS RESULT [...] Abs Low Lymph 0.11 LAB AMONO % Owen% 0.9 LAB AAMONO <0.87 k/uL Abs Owen 0.11 LAB AEOS % Eosin% 0.2 LAB AAEOS <0.46 k/uL Abs Eosin <0.03 LAB ABASO % Baso% 0.3 LAB AABASO <0.11 k/uL Abs Baso 0.03 LAB AUNRBC 0 /100 WBC NRBCs High 0.2 LAB ABNRBC <0.01 k/uL High Absolute nRBC 0.02 LAB DTYP DTYPE Auto Diff Performed By: #### PT, CMP, MG1, NTBNP, PHOS, CBCDIF #### [facility] [address] [place], [place] [address] TROPONIN T Collected: 10/13/2017 Status: F Source: [place] 9:00 PM [facility] REPOSITORY TYPE CODE TESTS RESULT OUT OF REFERENCE UNITS RANGE LAB TROPT 0.000-0.029 ng/mL High Troponin T 0.034 Result Comment: Called to and read back by: Bessy De Paz G61 10/13/17 21:58 Steffen Performed By: #### AMINAH #### [facility] [address] [place], [place] [address] URINALYSIS Collected: 10/13/2017 Status: F Source: [place] 6:46 PM [facility] REPOSITORY TYPE CODE TESTS RESULT OUT [...] Urine Negative LAB USPG 1.005-1.030 High Specific [place], Ur >1.030 LAB UHGB Negative Abnormal 3+ Alert Hemoglobin/Blood,U r LAB UPH 4.5-8.0 pH 6.0 LAB UPROT Negative mg/dL Abnormal Protein, Urine Alert >=300 LAB UUROB Normal Urobilinogen Normal LAB UNITR Negative Abnormal Nitrites Alert Positive LAB ULKEST Negative Abnormal Leukest 2+ Alert Performed By: #### UA, PT, CBC, UAMIC #### [facility] [address] [place], [place] [address] PROTIME Collected: 10/13/2017 Status: F Source: [place] 6:46 PM [facility] REPOSITORY TYPE CODE TESTS RESULT OUT OF RANGE REFERENCE UNITS LAB PSEC 9.7-13.0 sec High PT Sec 16.8 LAB INR 0.9-1.3 High PT INR 1.7 Result Comment: Vitamin K Antagonist (VKA) Therapeutic Range: INR 2 to 3 (Target INR of 2.5) Note: For patients treated with VKA drugs, such as warfarin, the [place] [employer]icians 2012 Guideline recommends [...] Chest 2012, 141:7S-47S Diogenes RA, et al. [facility] 2017, 70: 252-289 Performed By: #### UA, PT, CBC, UAMIC #### [facility] [address] [place], [place] [address] CBC Collected: 10/13/2017 Status: F Source: [place] 6:46 PM [facility] [place] REPOSITORY TYPE CODE TESTS RESULT OUT OF [...] By: #### UA, PT, CBC, UAMIC #### [facility] [address] [place], [place] [address] URINE MICROSCOPIC (FOR Collected: 10/13/2017 Status: F Source: [place] LAB USE ONLY) 6:46 PM [facility] REPOSITORY TYPE CODE TESTS RESULT OUT OF RANGE REFERENCE UNITS LAB UWBC 0-5 /HPF Abnormal Alert WBC 6-10 LAB URBC 0-3 /HPF Abnormal Alert RBC >25 LAB UCAST 0 /LPF Cast SEE COMMENT Result Comment: 0 LAB UEPI /HPF Epithelial SEE Cells COMMENT Result Comment: Squamous Epithelial Cells Few Non-Squamous Epithelial Cells Performed By: #### UA, PT, CBC, UAMIC #### [facility] [address] [place], [place] [address] GASA + ALL Collected: 10/13/2017 Status: F Source: [place] FOR 5:08 PM [facility] RADIANCE USE ONLY REPOSITORY TYPE CODE TESTS [...] Lactate 0.7 Performed By: #### ALLBG #### [facility] [address] [place] [address] Observed: 10/13/2017 Status: F Source: [place] S PNEUMO AG DETECT 4:57 PM [facility] REPOSITORY Test Result - Negative for S.pneumoniae antigen. Presumptive negative for pneumococcal pneumonia, suggesting no current or recent pneumococcal infection. Infection due to S.pneumoniae cannot be ruled out since the antigen present in the sample may be below the detection limit of the test. Performed By: #### SPNAG #### [facility] [address] [place], [place] [address] LEGIONELLA URINE AG Collected: 10/13/2017 Status: F Source: [place] 4:57 PM [facility] REPOSITORY TYPE CODE TESTS RESULT OUT OF REFERENCE UNITS RANGE LAB LEGUAG Negative Legionella Urine Negative Ag Result Comment: Negative for L. pneumophila serogroup 1 antigen in urine, suggesting no recent or current infection. Legionnaires disease cannot be ruled out since other serogroups and species may also cause disease. Performed By: #### LEGUAG #### [facility] [address] [place], [place] [address] CONSULT Observed: 10/13/2017 Status: COMPLETED Source: [place] 4:39 PM [facility] REPOSITORY HNO ID: [id number] Author: Dominique Rios Service: Hematology/Oncology Author Type: Physician Type: Consults Filed: 10/13/2017 7:19 PM Note Text: [facility] Initial Consult Note PATIENT NAME: Paloma Cannon [facility] #: [id number] ATTENDING PHYSICIAN: Dr. Castro DATE OF SERVICE: 10/13/2017 Room/Bed: [place] [address]/[place] [address] REASON FOR CONSULT: Antiphospholipid syndrome Consulting PHYSICIAN: [...] MD Fellow, Hematology and Medical Oncology Pager: [phone] HPI: This is a 27 y/o female [...] further management of alveolar hemorrhage. Presented to [facility] ED with hemoptysis/SOB - found to [...] nephrotoxic agents - DVT (deep venous thrombosis) ([facility]) - Elevated CA-125 11/30/2013 244 - Essential hypertension 10/08/2015 Stable on home medications Plan: -continue to monitor on home meds - 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 Bivalirudin to Warfarin bridging - HIT (heparin-induced thrombocytopenia) ([facility]) - Nontoxic multinodular goiter - Obese [...] Lymph 1.00 - 4.00 k/uL 0.31 (L) Owen% % 1.7 Abs Owen <0.87 k/uL 0.20 Eosin% % 2.6 Abs Eosin <0.46 k/uL 0.31 Baso% % 0.0 Abs Baso <0.11 k/uL 0.00 ANC(includeSEG+BAND) k/uL Line [place]% % Myelo% % 0.9 Anisocytosis Present Left [...] MD Fellow, Hematology and Medical Oncology Pager: [phone] [facility] STAFF PHYSICIAN NOTE OF PERSONAL INVOLVEMENT [...] also discussed her case with her outpatient jewel diameter gauger Dr. Kem Bishop and with the Apheresis [...] dear lady. SIGNATURE: Dominique Rios DO PAGER: [phone] DATE of SERVICE: October 13, 2017 TIME of SERVICE: 7:18 PM EMERGENCY DEPARTMENT Observed: 10/13/2017 Status: F Source: [place] SUMMARY 4:34 PM [facility] RE[facility] Medical Records Department [address] [facility] [place] [address] Emergency Department Summary 10/13/17 1046 MR#: [id number] Acct: [id number] Name: PALOMA CANNON Rep #: [id number] : 1990 27 From: Lydia Harley MD [...] intubation and she was transferred to the [facility] as she required plasmapheresis. She [...] at this hospital. They are requesting the [facility]. I spoke with Dr. Mathieu Christie. The ICU is full and I am awaiting a call back from him. I will continue to stabilize and resuscitate here. I did have our police judge see the patient in the emergency department for any other further input. Dr. Buchanan made some changes to the ventilator. Will await transport by helicopter service. Treatment Plan: As above Disposition: Transfer Impression: 1. Acute respiratory failure 2. Alveolar hemorrhage This note was generated with Sunshine Heartation software. It may contain incorrect words, spelling, [...] your Primary Care Provider. Call [facility] ([phone]) or report to the closest Emergency Room. Call 911 if necessary. 10/13/17 1634 <Electronically signed by Lydia Harley MD> Date Lydia Harley MD Cosigner Signature (If Indicated): Date CC: Peyton Rogers MD C3 COMPLEMENT Collected: 10/13/2017 Status: F Source: [place] 4:30 PM [facility] REPOSITORY TYPE CODE TESTS RESULT OUT OF REFERENCE UNITS RANGE LAB C3COMP 86-166 mg/dL Low C3 Complement 67 Performed By: #### C3COMP, C4COMP, SMAB, DNAAB #### [facility] [address] [place] [address] C4 COMPLEMENT Collected: 10/13/2017 Status: F Source: [place] 4:30 PM [facility] REPOSITORY TYPE CODE TESTS RESULT OUT OF REFERENCE UNITS RANGE LAB C4COMP 13-46 mg/dL Low C4 Complement 9 Performed By: #### C3COMP, C4COMP, SMAB, DNAAB #### [facility] [address] [place], [place] [address] SM ANTIBODY Collected: 10/13/2017 Status: F Source: [place] 4:30 PM [facility] REPOSITORY TYPE CODE TESTS RESULT OUT OF REFERENCE UNITS RANGE LAB SMAB <1.0 AI Sm Antibody <0.2 Result Comment: NEGATIVE Negative: <1.0 AI Positive: >0.9 AI Performed By: #### C3COMP, C4COMP, SMAB, DNAAB #### [facility] [address] [place], [place] [address] DNA ANTIBODY Collected: 10/13/2017 Status: F Source: [place] 4:30 PM [facility] REPOSITORY TYPE CODE TESTS RESULT OUT OF REFERENCE UNITS RANGE LAB DNAAB1 <30 IU/mL DNA Antibody <12 Result Comment: Negative for ds DNA Antibodies Negative: <30 IU/mL Equivocal: 30-74 IU/mL Positive: >74 IU/mL Performed By: #### C3COMP, C4COMP, SMAB, DNAAB #### [facility] [address] [place] [id number] FUNGITELL B-D-GLUCAN Collected: 10/13/2017 Status: F Source: [place] 4:30 PM [facility] REPOSITORY TYPE CODE TESTS RESULT OUT OF REFERENCE UNITS RANGE LAB BDASAY Negative Fungitell Assay Negative Result Comment: (NOTE) INTERPRETIVE INFORMATION: (1,3)-vlxu-Y-iqfqlg (Fungitell) Less than 31 pg/mL ................... Negative 31-59 pg/mL .......................... Negative 60-79 pg/mL .......................... Indeterminate Greater than or equal to 80 pg/mL .... Positive The Fungitell test is indicated for presumptive diagnosis of fungal infection and should be used in conjunction with other diagnostic procedures. This test does not detect certain fungal species such as Cryptococcus, which produce very low levels of (1,3)-gbdm-O-qhjkiw. This test will not detect the zygomycetes, such as Absidia, Mucor, and Rhizopus, which are not known to produce (1,3)-hkjq-G-mtblrz. In addition, the yeast phase of Blastomyces dermatitidis produces little (1,3)-hdbl-Y-glwewq and may not be detected by the assay. Performed by [facility], [address] [place] [address] www.[email or web address], Red Brasher MD, Lab. Director LAB BDCMNT pg/mL Fungitell Comments <31 Performed By: #### BDGLUC #### [facility] [address] [place] [address] [phone] PROCEDURE Observed: 10/13/2017 Status: COMPLETED Source: [place] 4:18 PM [facility] [place] REPOSITORY HNO ID: [id number] Author: Dm Alvarado Service: Critical Care Author Type: Physician Type: Procedures Filed: 10/17/2017 11:09 AM Note Text: BEDSIDE PROCEDURE NOTE PROCEDURE DATE: October 13, 2017 PROCEDURE START TIME: 4:19 PM PRIMARY PROCEDURALIST: Gael Bear MD MOLD DESIGNER(S): None INFORMED CONSENT: Informed Consent obtained and [...] 13, 2017 TIME: 4:19 PM PAGER/CONTACT #: [phone] I was present for the entire procedure and supervised the fellow Dm Alvarado MD MPH MSc CASE MGT INIT Observed: 10/13/2017 Status: COMPLETED Source: [facility] 2:17 PM [facility] REPOSITORY HNO ID: [id number] Author: Radha (Rn) JEFF Hope Service: Case Management Author Type: Registered Nurse Type: Care Mgt Initial Assessment Filed: 10/13/2017 2:25 PM Note Text: CARE MANAGEMENT: ASSESSMENT AND DISCHARGE PLAN SERVICE DATE: 10/13/2017 SERVICE TIME: 2:17 PM PRIMARY CARE PHYSICIAN: PEYTON ROGERS MD ADMISSION STATUS: Inpatient Needs Prior to Discharge: To Be Determined 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 Has the Patient Been in a [facility] Facility in the Past 30 days? TBD SOCIAL: Living Arrangement: TBD Lives With: TBD Financial Resources: TBD Primary Contact: Extended Emergency Contact Information Primary Emergency Contact: Morteza Cannon Address: [address] [place] [address] Mobile Relation: Spouse Secondary Emergency Contact: BaronmelissaMorgan Mobile Relation: Father Mother: Jane Aiken [place] Supportive: Yes, TBD Other Important Patient Contacts: [...] 13, 2017 TIME: 2:17 PM PAGER/CONTACT #: [phone] GASV + ALL Collected: 10/13/2017 Status: F Source: [place] 1:42 PM [facility] REPOSITORY TYPE CODE TESTS RESULT OUT [...] LAB CO <2.0 % 2.1 High Carboxyhemoglobin ,Rajeev LAB METHB 0.4-1.5 % 0.9 Methemoglobin LAB [...] Notify [id number] Date, Rajeev LAB VCBTME Notify [id number] Time, Rajeev LAB VBGCOM Blood Gas O2 Comm, Rajeev Administration 100% Performed By: #### VALLBG #### [facility] [address] [place], [place] [address] XR ABDOMEN 1V SUPINE Observed: 10/13/2017 Status: F Source: [place] 1:31 PM [facility] REPOSITORY * * *Final Report* * * [...] the inferior aorta and bilateral iliac arteries. Dopeman: PSCB Transcribe Date/Time: Oct 13 2017 1:59P Dictated by : LINDA DEE MD This examination was interpreted and the report reviewed and electronically signed by: YASMINE VINSON MD on Oct 13 2017 2:22PM EST [id number] XR CHEST 1V FRONTAL Observed: 10/13/2017 Status: F Source: [facility] 1:31 PM [facility] REPOSITORY * * *Final Report* * * [...] Stable enlargement of the cardiomediastinal silhouette. Other: Dopeman: MURTAZA Transcribe Date/Time: Oct 13 2017 4:13P Dictated by : GUILLAUME STARKEY MD This examination was interpreted and the report reviewed and electronically signed by: GUILLAUME STARKEY MD on Oct 13 2017 4:15PM EST [id number] PROGRESS Observed: 10/13/2017 Status: COMPLETED Source: [place] 1:28 PM [facility] REPOSITORY HNO ID: [id number] Author: Kit Castro Service: Critical Care Author [...] 11.79 WBC 11.8, Hb 8.4 Cardia ECHO 2 with EF 50% with mildly decreased LV function. Normal RV function Outside labs with lactate 12.4, Cr 1.32 (at baseline), INR 2.1 (received warfarin ..2017) Hb 10.1 WBC 17 ABG on 100% PEEP 14 cmH2O FiO2 pH 7.29, pCO2 44, pO2 79 More current lactate 1.2 Drilling Field Specialist 34 ASSESSMENT Acute hypoxemic respiratory failure with [...] hemorrhage Antiphopholipid syndrome: + lupus anticoagulant, + jkrc-u7-cudgmmzztull, and + anti-cardiolipin antibodies DVT/PE 2013 IVC thrombosiis bilateral iliar stent terminal operations manager warfarin Plasmapheresis HIT HFpEF PLAN FFP Follow [...] 250 mgs twice daily Kit Castro MD [facility] STAFF PHYSICIAN NOTE OF PERSONAL INVOLVEMENT IN CARE I have reviewed the progress note obtained and documented by the fellow/resident/MARKLOGIC DEVELOPER/PA and I personally participated in the fernandes [...] minutes. SIGNATURE: Kit Castro MD [facility] PAGER:[phone] Observed: 10/13/2017 Status: F Source: [place] BLOOD CULTURE 1:05 PM [facility] REPOSITORY Culture Result - No growth 5 days Performed By: #### BLCUL #### [facility] [address] [place], [place] [address] URINALYSIS WITH Collected: 10/13/2017 Status: F Source: [place] MICROSCOPIC 1:00 PM [facility] REPOSITORY TYPE CODE TESTS RESULT OUT OF RANGE REFERENCE UNITS LAB UCOL Yellow Color Abnormal Lisseth Alert LAB [facility] Clear Clarity Abnormal Cloudy Alert LAB UGLUC Negative mg/dL Glucose, Urine Negative LAB UBIL Negative Bilirubin, Urine Negative LAB UKET Negative Ketones, Urine Negative LAB [facility] 1.005-1.030 Specific [place], Ur 1.024 LAB UHGB Negative Abnormal Hemoglobin/Blood, [...] Epithelial Cells Performed By: #### UAWMIC #### [facility] [address] [place], [place] [address] FIBRINOGEN Collected: 10/13/2017 Status: F Source: [place] 1:00 PM [facility] REPOSITORY TYPE CODE TESTS RESULT OUT OF REFERENCE UNITS RANGE LAB FIBCT 200-400 mg/dL Fibrinogen 283 Performed By: #### FIBCT, PT, PTT, LACT, CMP, MG1, PHOS, CBCDIF #### [facility] [address] [place] [id number] PROTIME Collected: 10/13/2017 Status: F Source: [place] 1:00 [facility] REPOSITORY TYPE CODE TESTS RESULT OUT OF RANGE REFERENCE UNITS LAB PSEC 9.7-13.0 sec High PT Sec 19.8 LAB INR 0.9-1.3 High PT INR 2.0 Result Comment: Vitamin K Antagonist (VKA) Therapeutic Range: INR 2 to 3 (Target INR of 2.5) Note: For patients treated with VKA drugs, such as warfarin, the [place] [employer] Chest Physicians 2012 Guideline recommends [...] GH, et al. Chest 2012, 141:7S-47S Diogenes RESENDIZ, et al. [facility] 2017, 70: 252-289 Performed By: #### FIBCT, PT, PTT, LACT, CMP, MG1, PHOS, CBCDIF #### [facility] [address] [place] [id number] APTT Collected: 10/13/2017 Status: F Source: [place] 1:00 [facility] REPOSITORY TYPE CODE TESTS RESULT [...] PTT, LACT, CMP, MG1, PHOS, CBCDIF #### [facility] [address] [place] [address] LACTATE Collected: 10/13/2017 Status: F Source: [place] 1:00 [facility] REPOSITORY TYPE CODE TESTS RESULT OUT OF REFERENCE UNITS RANGE LAB LACT 0.5-2.2 mmol/L Lactate 1.5 Performed By: #### FIBCT, PT, PTT, LACT, CMP, MG1, PHOS, CBCDIF #### [facility] [place] [id number] COMP METABOLIC PANEL Collected: 10/13/2017 Status: F Source: [place] 1:00 [facility] REPOSITORY TYPE CODE TESTS RESULT [...] mg/dL Low Glucose 48 Result Comment: The [place] Diabetes Association (ADA) provides guidance for cutoff [...] Standards of Medical Care in Diabetes 2016, [place] [employer] Association. Diabetes Care. 2016.39(Suppl 1). Called to and read back by: Dieter [phone] 10/13/17 1444 [facility] BUN 7-21 mg/dL [...] PTT, LACT, CMP, MG1, PHOS, CBCDIF #### [facility] [address] [place], [place] [id number] MAGNESIUM Collected: 10/13/2017 Status: F Source: [place] 1:00 PM [facility] REPOSITORY TYPE CODE TESTS RESULT OUT OF REFERENCE UNITS RANGE LAB MG 1.7-2.3 mg/dL Magnesium 1.9 Performed By: #### FIBCT, PT, PTT, LACT, CMP, MG1, PHOS, CBCDIF #### [facility] [address] [place] [address] PHOSPHORUS Collected: 10/13/2017 Status: F Source: [place] 1:00 PM [facility] REPOSITORY TYPE CODE TESTS RESULT OUT OF REFERENCE UNITS RANGE LAB PHOS 2.7-4.8 mg/dL Phosphorus 4.2 Performed By: #### FIBCT, PT, PTT, LACT, CMP, MG1, PHOS, CBCDIF #### [place] [address] [place], [place] [address] CBC AND DIFFERENTIAL Collected: 10/13/2017 Status: F Source: [place] 1:00 [facility] REPOSITORY TYPE CODE TESTS RESULT [...] Abs Lymph 0.31 Low LAB AMONO % Owen% 1.7 LAB AAMONO <0.87 k/uL Abs Owen 0.20 LAB AEOS % Eosin% 2.6 LAB [...] PTT, LACT, CMP, MG1, PHOS, CBCDIF #### [facility] [address] [place] [address] TYPE AND SCREEN Collected: 10/13/2017 Status: F Source: [place] 1:00 [facility] REPOSITORY TYPE CODE TESTS RESULT OUT OF REFERENCE UNITS RANGE LAB %ABR B ABO/RH(D) POSITIVE LAB % Antibody POS Screen Performed By: #### TSCR #### [facility] [place] [address] STAPH AUREUS PCR Collected: 10/13/2017 Status: F Source: [place] 1:00 [facility] REPOSITORY TYPE CODE TESTS RESULT OUT OF REFERENCE UNITS RANGE LAB SASRC Nasal S aureus Spec Source LAB MRSRES Negative for MRSA MRSA by PCR. PCR LAB SARES Negative for Staph Staphylococcus aureus PCR aureus by PCR. Performed By: #### SAPCR #### [facility] [address] [place] [address] PROGRESS Observed: 10/13/2017 Status: COMPLETED Source: [place] 12:56 PM [facility] [place] REPOSITORY HNO ID: [id number] Author: Domingo (Elliott) Andtiera Service: (none) Author Type: Nurse Practitioner Type: Progress Notes Filed: 10/13/2017 1:16 PM Note Text: Critical Care Transport Note Patient Name: Paloma Cannno Service Date: October 13, 2017 Referring Facility: [facility] Accepting Facility: [place] [address] SUBJECTIVE/CHIEF COMPLAINT: Shortness of breath REASON FOR [...] on coumadin, HTN, HIT. She presented to [facility] on 10/13 for evaluation of shortness of breath. Patient received plasmapheresis a few weeks ago and was supposed to have another treatment on 10/09 but missed her appointment. Today patient developed cough which turned in to inability to catch her breath. Patient was brought to [place] ER where she was tripoding in respiratory [...] managing the patient requested transfer to the [facility] for tertiary and/or quaternary services unavailable at the referring facility. The physician managing the patient requested the [facility] Critical Care Transport Team transport and [...] to Warfarin bridging - HIT (heparin-induced thrombocytopenia) ([facility]) - Nontoxic multinodular goiter - Obese [...] start vancomycin infusion - expedite transfer to [facility] for plasmapharesis The transport was completed without significant incident or change in the patient's status . The patient was transported to the the [facility] by [facility] (Helicopter) for tertiary and/or quaternary evaluation and management of her Critical Medical condition(s). Upon arrival to the receiving facility, a onpz-ze-pkve report was given to bedside staff in [...] of suddenly developing. SIGNATURE: Domingo Cobb, MSN VP.SALES DEVELOPMENT CONSULTANT Acute Care Nurse Practitioner [facility] Critical Care Transport Team CONSULT PROG Observed: 10/13/2017 Status: COMPLETED Source: [place] 12:54 PM [facility] REPOSITORY O ID: [id number] Author: Lou Joya (Pharmacist) Service: Pharmacy Author [...] please contact Lou Joya PharmD at pager [phone]. Age: [age] year old Allergies: ALLERGIES Allergen [...] JOYA PHARMACIST Observed: 10/13/2017 Status: F Source: [place] BLOOD CULTURE 12:40 PM [facility] REPOSITORY Culture Result - No growth 5 days Performed By: #### BLCUL #### [facility] [address] [place] [address] HISTORY PHYSICAL Observed: 10/13/2017 Status: COMPLETED Source: [place] 11:48 AM [facility] REPOSITORY HNO ID: [id number] Author: Hollis Oro Service: Critical Care Author Type: Resident Type: HANDP Filed: 10/13/2017 1:23 PM Note Text: 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 Presented to [facility] ED with hemoptysis/SOB - found to be in increased work of breathing and low sats - was intubated (10/13/17). Initial labs: Hgb 10.1, WBC 17, INR 2.1 (last dose of Warfarin 5 mg on 10/12/17 evening), Cr 1.32, K 5.0, Bicarb 18, AG 18, Lactate 12.4. Initial ABG on 100% FiO2/PEEP 14: 7.29, 44,79. Upon arrival to [facility] MICU, she is normotensive, HR ~ low [...] 13, 2017 TIME: 11:48 AM PAGER/CONTACT #: [phone] BLOOD GASES BY CPS Collected: 10/13/2017 Status: F Source: [place] 10:56 AM [facility] TYPE CODE TESTS RESULT OUT OF [...] ISTAT 94 Performed By: #### L9000.0800 #### [facility] Point of Care [address] [place] [address] Observed: 10/13/2017 Status: F Source: [place] CULTURE, SPUTUM 10:48 AM [facility] RE[facility] Gram Stain Acceptable Specimen? Yes (<25 Epithelial cells per/lpf) Gram Stain 1+ White Blood Cells 1+ Epithelial cells Rare Gram positive cocci Resp. Culture Mixed normal respiratory zoila. No Haemophilus, Streptococcus pneumoniae, beta-hemolytic Streptococcus or Staphylococcus aureus isolated. Performed By: #### M100.0800 #### [facility] [address] [place], [address] URINALYSIS, COMPLETE Collected: 10/13/2017 Status: F Source: [place] 10:30 AM [facility] Order Comment: How was Urine Obtained? [...] URINE SEEN Performed By: #### L400.0001 #### [facility] [address] [place], [address] Observed: 10/13/2017 Status: F Source: [place] CULTURE, URINE 10:30 AM [facility] Urine Culture ORGANISM 1: Enterococcus faecalis Fleming Count <1000 Enterococcus faecalis: REACTION Ampicillin $ <=2 S Benzylpenicillin NF 2 S Ciprofloxacin $ 4 R Gentamicin SYN-R R Levofloxacin $ >=8 R Linezolid $$$$ 2 S Nitrofurantoin $ <=16 S Streptomycin $ SYN-R R Tetracycline NF >=16 R Vancomycin $ 1 S (NF) indicates non-formulary drug at [facility]. Approval by Infectious Disease Specialist required before non-formulary drugs may be ordered and/or dispensed. * CLSI guidelines does not recommend testing of cephalosporins. This interpretation is deduced from Beta-lactam/penicillin results. Performed By: #### M100.0650 #### [facility] [address] [place], [address] BLOOD GASES BY CPS Collected: 10/13/2017 Status: F Source: [place] 10:28 AM [facility] TYPE CODE TESTS RESULT OUT OF [...] ISTAT 85 Performed By: #### L9000.0800 #### [facility] Point of Care [address] [place] [address] Observed: 10/13/2017 Status: F Source: [place] CULTURE, BLOOD (WB) 10:22 AM [facility] RE[facility] BC No growth in 5 days. Performed By: #### M200.1000 #### [facility] [address] [place], [address] Observed: 10/13/2017 Status: F Source: [place] CULTURE, BLOOD (WB) 10:15 AM [facility] BC No growth in 5 days. Performed By: #### M200.1000 #### [facility] [address] [place] [place], [address] CHEST 1 VIEW Observed: 10/13/2017 Status: F Source: [place] (PORTABLE) 9:59 AM [facility] RE[facility] Imaging Services [address] [place] [address] Chest 1 View (Portable) MR#: [id number] Acct: [id number] Name: PALOMA CANNON Rep #: [id number] : 1990 F 27 From: Reinaldo Kam MD PCP: Peyton Rogers MD Status: REG ER Study: Chest 1 View (Portable) Date of Exam: 10/13/17 Exam# [id number] Ordering Dr: Lydia Harley MD STUDY: X-RAY [...] Reinaldo Kam MD at 10:24 EDT Tel [phone], Service support , CC: Peyton Rogers MD; Lydia Harley MD Dopeman: Signed PROTHROMBIN TIME W/INR Collected: 10/13/2017 Status: F Source: [place] 9:35 AM [facility] TYPE CODE TESTS RESULT OUT OF RANGE REFERENCE UNITS LAB L300.4150 11.7-14.9 SECONDS High PROTIME 23.7 LAB L300.4200 Normal INR 2.1 Performed By: #### L300.3900, L300.4310 #### [facility] [address] [place], [address] PARTIAL THROMBOPLAST Collected: 10/13/2017 Status: F Source: [place] TIME 9:35 AM [facility] TYPE CODE TESTS RESULT OUT OF RANGE REFERENCE UNITS LAB L300.4310 24.1-36.2 Seconds Normal PTT 34.9 Performed By: #### L300.3900, L300.4310 #### [facility] [address] [place], [address] COMPREHENSIVE METABOLIC Collected: 10/13/2017 Status: F Source: [place] [facility] 9:35 AM [facility] Order Comment: 'TROP' Serial specimen #1, [...] 18 Performed By: #### L500.4050, L501.4010 #### [facility] [address] [place], [address] TROPONIN-I Collected: 10/13/2017 Status: F Source: [place] 9:35 AM [facility] Order Comment: 'TROP' Serial specimen #1, #2, #3, or #4: 1 TYPE CODE TESTS RESULT OUT OF RANGE REFERENCE UNITS LAB L501.4010 <0.06 ng/mL Normal 0.06 TROPONIN-I Result Comment: TROPONIN-I EXPECTED VALUES <0.05 NEGATIVE 0.06 - 0.59 AT RISK OF [place] > OR = 0.60 SUGGEST [place] Performed By: #### L500.4050, L501.4010 #### [facility] [address] [place], [place], [address] CBC W/DIFF, AUTOMATED Collected: 10/13/2017 Status: C Source: [place] 9:35 AM [facility] TYPE CODE TESTS RESULT OUT OF [...] 2+ Performed By: #### L100.0100, L100.4425 #### [facility] [address] [place], [address] NRBC PANEL Collected: 10/13/2017 Status: F Source: [place] 9:35 AM [facility] TYPE CODE TESTS RESULT OUT OF RANGE REFERENCE UNITS LAB L100.4450 0-5 % Normal NRBC, FLAGGED 0.24 LAB L100.4455 0-5 10 3/uL Normal NRBC # 1.40 Performed By: #### L100.0100, L100.4425 #### [facility] [address] [place], [address] LACTIC ACID Collected: 10/13/2017 Status: F Source: [place] 9:35 AM [facility] Order Comment: Yes/No query for Sepsis [...] Yinka Nava Performed By: #### L503.6005 #### [facility] [address] [place], [address] ,SERUM,HCG QUALI. Collected: Status: F Source: [place] 10/13/2017 9:35 AM [facility] TYPE CODE TESTS RESULT OUT OF REFERENCE UNITS RANGE LAB L700.7000 0-9 Nonpreg Negative Normal HCGSQUAL NEGATIVE LAB L700.6700 =>Qualitative mIU/mL Normal HCG Qual 2 triggr Performed By: #### L700.6800 #### [facility] [address] [place], [address] PROTHROMBIN TIME W/INR Collected: 10/13/2017 Status: F Source: [place] 8:00 AM [facility] Order Comment: MEDOUT/PORTDRAW TYPE CODE TESTS RESULT OUT OF RANGE REFERENCE UNITS LAB L300.4150 11.7-14.9 SECONDS High PROTIME 22.8 LAB L300.4200 Normal INR 2.0 Performed By: #### L300.3900 #### [facility] [address] [place], [address] Observed: 10/13/2017 Status: F Source: [place] RESPIRATORY CULT/STAIN 12:36 AM [facility] REPOSITORY Smear Result - Rare Mixed oral and respiratory zoila Few Polymorphonuclear leukocytes Rare Epithelial cells Culture Result - Rare Normal respiratory zoila present Performed By: #### RCULST #### [facility] [address] [place], [place] [address] CNCRITCR Observed: 10/13/2017 Status: COMPLETED Source: [place] 12:00 AM [facility] REPOSITORY Critical Care Transport (CCT) PALOMA CANNON ([id number]) 1990 F PTR Date Time Provider Department 10/13/17 DOMINGO COBB (ELLIOTT) CCT During your visit today, we recorded the following information about you: Domingo Cobb, MSN VP.ELLIOTT 10/13/2017 1:16 PM Signed Critical Care Transport Note Patient Name: Paloma Cannon Service Date: October 13, 2017 Referring Facility: [facility] Accepting Facility: [place] [address] SUBJECTIVE/CHIEF COMPLAINT: Shortness of breath REASON FOR [...] on coumadin, HTN, HIT. She presented to [place] on 10/13 for evaluation of shortness of breath. Patient received plasmapheresis a few weeks ago and was supposed to have another treatment on 10/09 but missed her appointment. Today patient developed cough which turned in to inability to catch her breath. Patient was brought to [place] [facility] where she was tripoding in respiratory [...] managing the patient requested transfer to the [facility] for tertiary and/or quaternary services unavailable at the referring facility. The physician managing the patient requested the [facility] Critical Care Transport Team transport and [...] start vancomycin infusion - expedite transfer to [facility] for plasmapharesis The transport was completed without significant incident or change in the patient's status . The patient was transported to the the [facility] by Rotor (Helicopter) for tertiary and/or quaternary evaluation and management of her Critical Medical condition(s). Upon arrival to the receiving facility, a hvpz-zv-nycw report was given to bedside staff in [...] of suddenly developing. SIGNATURE: Domingo Cobb, MSN VP.SALES DEVELOPMENT CONSULTANT Acute Care Nurse Practitioner [facility] Critical Care Transport Team Allergies As [...] Assessed Reason for Visit: Critical Care Transport [1718] Prescriptions as of 10/13/2017 Sig: GABAPENTIN 100 [...] 10/09/2017 Status: F Source: [place] 8:15 AM [facility] Order Comment: MEDOUT/PORT DRAW TYPE CODE TESTS RESULT OUT OF RANGE REFERENCE UNITS LAB L300.4150 11.7-14.9 SECONDS High PROTIME 24.1 LAB L300.4200 Normal INR 2.2 Performed By: #### L300.3900 #### [facility] [address] [place], [address] PROTHROMBIN TIME W/INR Collected: 10/06/2017 Status: F Source: [place] 8:00 AM [facility] Order Comment: Comments: FAX TO MAGDALENA LEWIS CNP [phone] TYPE CODE TESTS RESULT OUT OF RANGE REFERENCE UNITS LAB L300.4150 11.7-14.9 SECONDS High PROTIME 15.2 LAB L300.4200 Normal INR 1.2 Performed By: #### L300.3900 #### [facility] [address] [place], [address] PLAN OF CARE Observed: 10/05/2017 Status: COMPLETED Source: [place] 4:40 PM [facility] REPOSITORY HNO ID: [id number] Author: Aleta [facility]Mcleod Health ClarendonDevonte Mandujano (Pharmacist) Service: Pharmacy Author Type: Pharmacist Type: [...] Pharmacist October 05, 2017 4:40 PM Pager: [phone] 10/05/2017 4:40 PM Medication List START taking [...] HTN I27.20 SIRS (systemic inflammatory response syndrome) ([facility]) R65.10 cyclophosphamide 50 mg capsule Commonly known [...] Your Medications These medications were sent to [facility] [address] [place], [place] [id number] - [address] [facility] - [phone] [address] [facility] [address] - gabapentin 100 mg capsule Information about where to get these medications is not yet available ! Ask your nurse or doctor about these medications - COMPOUNDED PRESCRIPTION CNDS Observed: 10/05/2017 Status: COMPLETED Source: [place] 4:31 PM [facility] [place] REPOSITORY HNO ID: [id number] Author: Sanchez Quiros MD Service: Hospital Medicine [...] HTN (hypertension) Active Problems: APS (antiphospholipid syndrome) ([facility]) CKD (chronic kidney disease) stage 3, GFR 30-59 ml/min (HFpEF) heart failure with preserved ejection fraction (HCC) History of HIT (heparin-induced thrombocytopenia) ([facility]) Peripheral neuropathy Obesity, Class II, BMI 35-39.9 E66.9 Resolved Problems: Hemoptysis Dysuria OPERATIONS DURING HOSPITALIZATION: None PROCEDURES DURING HOSPITALIZATION: EKG HOSPITAL COURSE: Patient is a 27 year old female with a PMHx of anti-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 [place] 10/30/2017 12:30 PM [facility] [place] 11/13/2017 12:00 PM [facility] [place] 11/24/2017 9:00 AM [facility] 11/27/2017 12:00 PM [facility] [place] 12/05/2017 8:15 AM [facility] 12/11/2017 12:00 [address] [facility] [place] 12/11/2017 12:20 PM XR CHEST MAIN A21 RADMN RADIO A BLDG 12/11/2017 1:25 PM Guillaume Paramalec PULMMN PULM A/E/R/G 12/25/2017 12:00 PM [facility] [place] 01/08/2018 12:00 PM [facility] [place] 01/22/2018 12:00 PM [facility] [place] 02/05/2018 12:00 PM [facility] [place] TIME OF CARE: TIME OF CARE: Discharge Management: I personally spent greater than 30 minutes involved in the discharge management of this patient. SIGNATURE: Sanchez Quiros MD PATIENT NAME: Paloma Cannon DATE: October 05, 2017 TIME: 4:31 PM PAGER/CONTACT #: [phone] CASE MANAGEM Observed: 10/05/2017 Status: COMPLETED Source: [place] 4:28 PM [facility] REPOSITORY HNO ID: [id number] Author: Candie (Rn) JEFF Williamson Service: Care [...] during this admission? No HANDOFF COMMUNICATION: Specialty Locate Technician: Eugenia Ly Primary Care Physician: PEYTON ROGERS MD TRANSPORTATION ARRANGEMENTS: Car Family ADDITIONAL CONTACT RESOURCES: N/A Reviewed discharge instructions, patient discharged home with no skilled home care needs at this time. Joyce Muñoz @ [phone] [facility] home going oxygen to be delivered at the bedside today. Discharge instructions by nursing staff. Family to provide transport. SIGNATURE: Candie Williamson RN PATIENT NAME: Paloma Cannon DATE: October 05, 2017 TIME: 4:28 PM PAGER/CONTACT #: [phone] NUTRITION Observed: 10/05/2017 Status: COMPLETED Source: [place] 2:58 PM [facility] REPOSITORY HNO ID: [id number] Author: Janel Hollingsworth (Diet-T) Judi Service: Nutrition Therapy Author Type: Equity Research Analyst Type: Nutrition Filed: 10/05/2017 3:00 PM Note [...] Routine Care/15 min 1 unit SIGNATURE: Janel Lau DTR PATIENT NAME: Paloma Cannon DATE: October 05, 2017 TIME: 2:58 PM PAGER: [phone] CONSULT PROG Observed: 10/05/2017 Status: COMPLETED Source: [place] 2:07 PM [facility] REPOSITORY HNO ID: [id number] Author: Paulette Gooden (Elliott) Davonte Service: Vascular [...] AND HS sodium chloride 0.65 % 2 Oakwood (AYR, OCEAN) 2 Oakwood EACH NOSTRIL PRN cyclophosphamide 150 mg cap(s) [...] 05, 2017 TIME: 1:09 PM PAGER/CONTACT #: [phone] . CASE MANAGEM Observed: 10/05/2017 Status: COMPLETED Source: [place] 11:33 AM [facility] REPOSITORY HNO ID: [id number] Author: Cherrie Loaiza (Asst) Service: Care Management Author Type: Resource Center Reprint Sorter Type: Care Mgt Progress Note Filed: 10/05/2017 11:34 AM Note Text: CARE MANAGEMENT PROGRESS NOTE SERVICE DATE: 10/05/2017 SERVICE TIME: 11:18 LOS: 6 days IM letter given to patient on 10/05/17. SIGNATURE: Asst Xiomara PATIENT NAME: Paloma Cannon DATE: October 05, 2017 TIME: 11:33 AM PAGER/CONTACT #: [phone] CBC Collected: 10/05/2017 Status: F Source: [place] 5:04 AM [facility] REPOSITORY TYPE CODE TESTS RESULT OUT [...] By: #### CBC, PT, BMP, PHOS #### [facility] [address] [place], [place] [address] PROTIME Collected: 10/05/2017 Status: F Source: [place] 5:04 AM [facility] REPOSITORY TYPE CODE TESTS RESULT OUT OF RANGE REFERENCE UNITS LAB PSEC 9.7-13.0 sec PT Sec 11.2 LAB INR 0.9-1.3 PT INR 1.1 Result Comment: Vitamin K Antagonist (VKA) Therapeutic Range: INR 2 to 3 (Target INR of 2.5) Note: For patients treated with VKA drugs, such as warfarin, the [place] [employer]icians 2012 Guideline recommends [...] Chest 2012, 141:7S-47S Diogenes RA et al. [facility] 2017, 70: 252-289 Performed By: #### CBC, PT, BMP, PHOS #### [facility] [address] [place], [place] [address] BASIC METABOLIC PANL Collected: 10/05/2017 Status: F Source: [place] 5:04 AM [facility] REPOSITORY TYPE CODE TESTS RESULT OUT OF REFERENCE UNITS RANGE LAB GLU 74-99 mg/dL Glucose 80 Result Comment: The [place] Diabetes Association (ADA) provides guidance for cutoff [...] Standards of Medical Care in Diabetes 2016, [place] [employer]. Diabetes Care. 2016.39(Suppl 1). LAB [...] By: #### CBC, PT, BMP, PHOS #### [facility] [address] [place] [address] PHOSPHORUS Collected: 10/05/2017 Status: F Source: [place] 5:04 AM [facility] REPOSITORY TYPE CODE TESTS RESULT OUT OF REFERENCE UNITS RANGE LAB PHOS 2.7-4.8 mg/dL Phosphorus 4.1 Performed By: #### CBC, PT, BMP, PHOS #### [facility] [address] [place] [id number] CONSULT PROG Observed: 10/04/2017 Status: COMPLETED Source: [place] 1:09 PM [facility] REPOSITORY HNO ID: [id number] Author: Paulette Gooden (Elliott) Davonte Service: Vascular [...] AND HS sodium chloride 0.65 % 2 Oakwood (AYR, OCEAN) 2 Oakwood EACH NOSTRIL PRN cyclophosphamide 150 mg cap(s) [...] daily w/HEATHER Wedge ordered SIGNATURE: Paulette Naranjo APRN.SALES DEVELOPMENT CONSULTANT PATIENT NAME: Paloma Cannon DATE: October 04, 2017 TIME: 1:09 PM PAGER/CONTACT #: [phone] . PROGRESS Observed: 10/04/2017 Status: COMPLETED Source: [place] 8:01 AM [facility] REPOSITORY HNO ID: [id number] Author: Ameena Mendez MD Service: Hospital Medicine Author Type: Physician Type: Progress Notes Filed: 10/04/2017 4:21 PM Note Text: DEPARTMENT OF HOSPITAL MEDICINE PROGRESS NOTE SERVICE DATE: 10/04/2017 SERVICE TIME: 8:01 AM Hospital Medicine/Primary Attending: Ameena Mendez MD NIGHT AND WEEKEND COVERAGE: Days: [phone], please page me for patient issues. Nights: [phone], please page Team [email or web address]; overnight coverage pager [phone] Subjective INTERVAL HPI: No acute events overnight. 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 [facility] STAFF PHYSICIAN NOTE OF PERSONAL INVOLVEMENT [...] found to be positive for lupus anticoagulant, xnue-b9-dasbuhczqrtx, and anti-cardiolipin antibodies usually gets plasmapheresis q2 [...] NURSING PROG Observed: 10/04/2017 Status: COMPLETED Source: [place] 4:20 AM [facility] REPOSITORY [facility] ID: [id number] Author: Clayton SanchezRn) JEFF Krishnamurthy Service: Nursing Author Type: Registered Nurse Type: Nursing Progress Note Filed: 10/04/2017 4:21 AM Note Text: Nursing Progress Note Patient Name: Paloma Cannon Patient Location: [place] [address]- Event(s) / Intervention Note: The patient was observed having the following problems: drop in H/H from 8.6/27.8 to 7.8/25.8 The time of the event occurred at: 0420. The following intervention(s) were initiated: [place] [phone]. After the initiated interventions, the following observation(s) were made: nothing further noted. Will continue to observe and check with patient. This note was completed by: Clayton Krishnamurthy RN CBC Collected: 10/04/2017 Status: F Source: [place] 3:36 AM [facility] REPOSITORY TYPE CODE TESTS RESULT OUT [...] By: #### CBC, PT, BMP, PHOS #### [facility] [address] [place] [address] PROTIME Collected: 10/04/2017 Status: F Source: [place] 3:36 [facility] REPOSITORY TYPE CODE TESTS RESULT OUT OF RANGE REFERENCE UNITS LAB PSEC 9.7-13.0 sec PT Sec 11.0 LAB INR 0.9-1.3 PT INR 1.1 Result Comment: Vitamin K Antagonist (VKA) Therapeutic Range: INR 2 to 3 (Target INR of 2.5) Note: For patients treated with VKA drugs, such as warfarin, the [place] [employer]icians 2012 Guideline recommends [...] Chest 2012, 141:7S-47S Diogenes RA, et al. [facility] 2017, 70: 252-289 Performed By: #### CBC, PT, BMP, PHOS #### [facility] [address], [place] [address] BASIC METABOLIC PANL Collected: 10/04/2017 Status: F Source: [place] 3:36 AM [facility] REPOSITORY TYPE CODE TESTS RESULT OUT OF REFERENCE UNITS RANGE LAB GLU 74-99 mg/dL High Glucose 118 Result Comment: The [place] Diabetes Association (ADA) provides guidance for cutoff [...] Standards of Medical Care in Diabetes 2016, [place] [employer]. Diabetes Care. 2016.39(Suppl 1). LAB [...] By: #### CBC, PT, BMP, PHOS #### [facility] [address] [place], [place] [address] PHOSPHORUS Collected: 10/04/2017 Status: F Source: [place] 3:36 AM [facility] REPOSITORY TYPE CODE TESTS RESULT OUT OF REFERENCE UNITS RANGE LAB PHOS 2.7-4.8 mg/dL Phosphorus 3.7 Performed By: #### CBC, PT, BMP, PHOS #### 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 No Advance Directive: Current Advance Directive: Health Care Power of Vault Keeper In Chart: No Household Refrigeration Mechanic Assisted with AD Completion: No Unable to [...] minute Has the Patient Been in a [place] [facility] Facility in the Past 30 days? No SOCIAL: Living Arrangement: Apartment Lives With: Spouse Financial Resources: Disabled Primary Contact: Extended Emergency Contact Information Primary Emergency Contact: Morteza Cannon Address: [address] [place] [address] [address] [place] [address] [facility] Mobile Relation: Spouse Secondary Emergency Contact: Morgan [...] 0 I feel financially burdened by my ywf-kr-xikmjc expenses for my prescription medication: Disagree completely [...] 03, 2017 TIME: 1:07 PM PAGER/CONTACT #: [phone] CONSULT PROG Observed: 10/03/2017 Status: COMPLETED Source: [place] 12:33 PM [facility] [place] REPOSITORY HNO ID: [id number] Author: Paulette Gooden (Turning Machine Operator) LORRAINE Naranjo.ELLIOTT Service: Vascular Medicine Author [...] AND HS sodium chloride 0.65 % 2 Oakwood (AYR, OCEAN) 2 [place]wood EACH NOSTRIL PRN gabapentin 300 mg cap(s) [...] 03, 2017 TIME: 12:33 PM PAGER/CONTACT #: [phone] . PROGRESS Observed: 10/03/2017 Status: COMPLETED Source: [place] 11:39 AM [facility] REPOSITORY HNO ID: [id number] Author: Ameena Mendez MD Service: Hospital Medicine Author Type: Physician Type: Progress Notes Filed: 10/03/2017 5:34 PM Note Text: DEPARTMENT OF HOSPITAL MEDICINE PROGRESS NOTE SERVICE DATE: 10/03/2017 SERVICE TIME: 11:39 AM Hospital Medicine/Primary Attending: Ameena Mendez MD NIGHT AND WEEKEND COVERAGE: Days: [phone], please page me for patient issues. Nights: [phone], please page Team GIM1a; overnight coverage pager [phone] Subjective INTERVAL HPI: No acute events overnight. 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 Uvse-xi-busl time was 20 minutes SIGNATURE: Ameena Mendez MD PAGER:[phone] DATE of SERVICE: 10/03/2017 TIME of SERVICE: 5:34 PM PT ED Observed: 10/03/2017 Status: COMPLETED Source: [place] 10:39 AM [facility] REPOSITORY HNO ID: [id number] Author: Ccf Provider Service: (none) Author Type: Physician Type: Patient Education Filed: 10/03/2017 10:39 AM Note Text: [facility] Patient Education Report --------- Name: PALOMA CANNON Date: 10/03/2017 Time: 10:38 AM Patient Ordered Video: Inpatient Falls from [id number] via phone number [phone] at 10:38 AM PLAN OF CARE Observed: 10/03/2017 Status: COMPLETED Source: [place] 10:29 AM [facility] REPOSITORY HNO ID: [id number] Author: Onofre Crawley (Heat Set Operator) Service: Pharmacy Author Type: Pharmacist Type: Plan of Care Filed: 10/03/2017 11:57 AM Note Text: MEDICATION RECONCILIATION Patient Name:.Paloma M Dvais : 1990 Reconciliation: Yes Medications intentionally held [...] See Comments Elevated cardiac enzymes Preferred Pharmacy: [facility] Current ASSET COORDINATOR Medications: Prior to Admission medications as of [...] needed. Unknown at Unknown time ONOFRE CRAWLEY, CUSTOMS CONSULTANT [id number] October 03, 2017 10:29 AM PLAN OF CARE Observed: 10/03/2017 Status: COMPLETED Source: [place] 10:02 AM [facility] REPOSITORY HNO ID: [id number] Author: Onofre Crawley (Heat Set Operator) Service: Pharmacy Author Type: Pharmacist Type: Plan of Care Filed: 10/03/2017 10:25 AM Note Text: MEDICATION HISTORY Patient Name:Karyna Cannon : 1990 Source of history:Patient: Reliability of source: Appears reliable, clearly identified: Medication name, Medication dose, Medication route and Medication frequency and EPIC dispense report records Medication Nonadherence Identified: No barriers noted The above information represents the best possible medication history: Yes Additional comments: ? Medications to add to ASSET COORDINATOR med list ? Fondaparinux 2.5 mg/0.5 mL injection - inject subcutaneously once daily. Bridge from warfarin. ? Torsemide 20 mg tablets scheduled daily - takes up to 60 mg total as needed for chronic edema ? ASSET COORDINATOR list medication changes ? Patient takes amlodipine [...] See Comments Elevated cardiac enzymes Preferred Pharmacy: [facility] Current ASSET COORDINATOR Medications: Prior to Admission medications as of [...] (FLONASE) 50 mcg/actuation nasal spray Use 1 Oakwood in each nostril once daily. Unknown at Unknown time senna 8.6 mg tab Take 1 tablet by mouth twice daily as needed. Unknown at Unknown time Fany Lion ([employer]) October 03, 2017 10:03 AM ONOFRE CRAWLEY, CUSTOMS CONSULTANT [id number] 10/03/17 10:17 AM CONSULT PROG Observed: 10/03/2017 Status: COMPLETED Source: [place] 9:25 AM [facility] REPOSITORY HNO ID: [id number] Author: Justina Pollard (Pa) Service: Hematology Author Type: Physician Reprint Sorter Type: Consult Progress Note Filed: 10/03/2017 2:49 [...] AND HS sodium chloride 0.65 % 2 Oakwood (AYR, OCEAN) 2 [place]wood EACH NOSTRIL PRN gabapentin 300 mg cap(s) (NEURONTIN) 300 mg ORAL q 8 H cyclophosphamide 150 mg cap(s) (CYTOXAN) 150 mg ORAL DAILY sulfamethoxazole-trimethoprim 800-160 mg 1 tablet (BACTRIM DS,SEPTRA DS) 1 tablet ORAL -WE ondansetron 8 mg tab(s) (ZOFRAN) 8 mg [...] call us back with questions ? SIGNATURE: Siham Jaouad, PA-C PATIENT NAME: Paloma Cannon DATE: October 03, 2017 TIME: 9:25 AM PAGER: [phone] PROGRESS Observed: 10/03/2017 Status: COMPLETED Source: [place] 6:55 AM [facility] REPOSITORY HNO ID: [id number] Author: Danielle SanchezRn) Yudy RN Service: (none) Author Type: Registered Nurse Type: Progress Notes Filed: 10/03/2017 7:49 AM Note Text: Please Notify the Provider. This patient has THREE or more risk factors for SEPSIS and requires an assessment for infection. Karenshannon Cassandra notified of sepsis alert. Trending of last [...] (L) PROGRESS Observed: 10/03/2017 Status: COMPLETED Source: [place] 5:27 AM [facility] REPOSITORY HNO ID: [id number] Author: Danielle SanchezRn) Yudy RN Service: (none) Author Type: Registered Nurse Type: Progress Notes Filed: 10/03/2017 7:49 AM Note Text: Nursing Progress Note Patient Name: Paloma Cannon Patient Location: H051 021/H051-21 Daily Note: Vitals stable. SOB with exertion. O2 95 4L, SOB resolves with rest Urine output adequate - urine remains orange. [facility] - none overnight Pain - none [...] RN PROTIME Collected: 10/03/2017 Status: F Source: [place] 4:00 AM [facility] REPOSITORY TYPE CODE TESTS RESULT OUT OF RANGE REFERENCE UNITS LAB PSEC 9.7-13.0 sec PT Sec 11.4 LAB INR 0.9-1.3 PT INR 1.1 Result Comment: Vitamin K Antagonist (VKA) Therapeutic Range: INR 2 to 3 (Target INR of 2.5) Note: For patients treated with VKA drugs, such as warfarin, the [place] 2012 Guideline recommends [...] Chest 2012, 141:7S-47S Diogenes RA, et al. [facility] 2017, 70: 252-289 Performed By: #### PT, CBC, BMP, MG1, PHOS #### [facility] [address] [address] CBC Collected: 10/03/2017 Status: F Source: [place] 4:00 [facility] REPOSITORY TYPE CODE TESTS RESULT OUT [...] #### PT, CBC, BMP, MG1, PHOS #### [facility] [address] [place], [place] [address] BASIC METABOLIC PANL Collected: 10/03/2017 Status: F Source: [place] 4:00 AM [facility] [place] REPOSITORY TYPE CODE TESTS RESULT OUT OF REFERENCE UNITS RANGE LAB GLU 74-99 mg/dL High Glucose 131 Result Comment: The [place] [employer] (ADA) provides guidance for cutoff [...] Standards of Medical Care in Diabetes 2016, [place] [employer]. Diabetes Care. 2016.39(Suppl 1). LAB [...] #### PT, CBC, BMP, MG1, PHOS #### [facility] [address] [address] MAGNESIUM Collected: 10/03/2017 Status: F Source: [place] 4:00 AM [facility] REPOSITORY TYPE CODE TESTS RESULT OUT OF REFERENCE UNITS RANGE LAB MG 1.7-2.3 mg/dL Magnesium 2.0 Performed By: #### PT, CBC, BMP, MG1, PHOS #### [facility] [address] [address] PHOSPHORUS Collected: 10/03/2017 Status: F Source: [place] 4:00 AM [facility] REPOSITORY TYPE CODE TESTS RESULT OUT OF REFERENCE UNITS RANGE LAB PHOS 2.7-4.8 mg/dL Phosphorus 3.4 Performed By: #### PT, CBC, BMP, MG1, PHOS #### [facility] [address] [address] PROGRESS Observed: 10/02/2017 Status: COMPLETED Source: [place] 10:00 PM [facility] REPOSITORY O ID: [id number] Author: Danielle (Rn) JEFF Jimenes Service: (none) Author Type: Registered [...] NURSING PROG Observed: 10/02/2017 Status: COMPLETED Source: [place] 8:00 PM [facility] REPOSITORY HNO ID: [id number] Author: Kathi SanchezRnDevonte Jones RN Service: Nursing Author Type: Registered Nurse Type: Nursing Progress Note Filed: 10/02/2017 8:03 PM Note Text: Report called to H51 PLAN OF CARE Observed: 10/02/2017 Status: COMPLETED Source: [place] 7:41 PM [facility] REPOSITORY HNO ID: [id number] Author: Jessica Scott (Haritha) Riky Service: Critical Care Author Type: Resident Type: Plan of Care Filed: 10/02/2017 7:42 PM Note Text: Patient has a bed on H51-21 under general internal medicine. Stable for transfer. Sign out given to [facility] who will assign an accepting physician once patient is transferred. Jessica Lan MD October 02, 2017 7:42 PM PLAN OF CARE Observed: 10/02/2017 Status: COMPLETED Source: [place] 3:14 PM [facility] REPOSITORY HNO ID: [id number] Author: Michelle Randhawa (Fel) Service: Hematology/Oncology Author Type: Fellow Type: Plan of Care Filed: 10/02/2017 3:15 PM Note Text: Chart reviewed and patient seen at bedside. Interim events noted. Pheresis today, Dr. Claudio aware. Anticoagulation being managed by . Hematology will continue to follow peripherally. Michelle Randhawa MD Hematology and Oncology Fellow Pager: [phone] October 02, 2017 3:15 PM CONSULT PROG Observed: 10/02/2017 Status: COMPLETED Source: [place] 2:28 PM [facility] REPOSITORY HNO ID: [id number] Author: Paulette Naranjo APRN.ELLIOTT Service: Vascular Medicine [...] AND HS sodium chloride 0.65 % 2 Oakwood (AYR, OCEAN) 2 Oakwood EACH NOSTRIL PRN gabapentin 300 mg cap(s) [...] and CKD. ?Her warfarin is followed by [facility]AM given her APS. ?Dr. Andujar manages her [...] CBC/INR daily following along SIGNATURE: Paulette Naranjo APRN.ELLIOTT PATIENT NAME: Paloma Cannon DATE: October 02, 2017 TIME: 2:28 PM PAGER/CONTACT #: [phone] . PROGRESS Observed: 10/02/2017 Status: COMPLETED Source: [place] 12:12 PM [facility] REPOSITORY HNO ID: [id number] Author: Sanjiv Corado Service: Critical Care Author [...] found to be positive for lupus anticoagulant, xbnj-k6-oewwkstjstzb, and anti-cardiolipin antibodies for which she gets [...] today, no ICU requirements, may discharge to [facility] - Plans for plasmapheresis tomorrow per [...] triple positive with + lupus anticoagulant, + jpxe-q8-zhvikakupcpe, and + anti-cardiolipin antibodies, she is on [...] for DAH History of HIT (heparin-induced thrombocytopenia) ([facility]) 03/14/2017 - Present Overview Plan: - Avoid heparin products Dysuria 10/02/2017 - Present Overview Endorsing dysuria, negative UA -urine culture is pending -continue nitrofurantoin for a total 5 day course pending culture data -continue pyridium Plan of care discussed with: Patient SIGNATURE: Franklin Ramey MD PATIENT NAME: Paloma Cannon DATE: October 02, 2017 TIME: 12:12 PM PAGER/CONTACT #: [phone] [facility] STAFF PHYSICIAN NOTE OF PERSONAL INVOLVEMENT [...] INSTITUTE PROCEDURE Observed: 10/02/2017 Status: COMPLETED Source: [place] 12:03 PM [facility] REPOSITORY [facility] ID: [id number] Author: Lisseth Claudio MD Service: Apheresis Author Type: Physician Type: Procedures Filed: 10/02/2017 4:30 PM Note Text: APHERESIS THERAPEUTIC PROCEDURE NOTE SERVICE DATE: 10/02/2017 SERVICE TIME: 1127 TREATMENT #: 86. Pre-treatment labs drawn: No [...] Collection bag identification label confirmed with { :[id number]::patient and s Date: 10/02/2017 Catheter Site Dressing: [...] Approx. 60ml blood returned. New treatment started [id number] without further difficulties. Patient instructed to continue abundant oral fluids. Report given to unit nurse. Patient remains in hospital bed. Treatment Started by Apheresis Nurse: Carmita Verdin RN Treatment Completed by Apheresis Nurse: .Carmita Verdin RN [facility] STAFF PHYSICIAN NOTE OF PERSONAL INVOLVEMENT [...] MD October 02, 2017 4:23 PM Pager: [phone] PROTIME Collected: 10/01/2017 Status: F Source: [place] 11:52 PM [facility] REPOSITORY TYPE CODE TESTS RESULT OUT OF RANGE REFERENCE UNITS LAB PSEC 9.7-13.0 sec PT Sec 12.5 LAB INR 0.9-1.3 PT INR 1.2 Result Comment: Vitamin K Antagonist (VKA) Therapeutic Range: INR 2 to 3 (Target INR of 2.5) Note: For patients treated with VKA drugs, such as warfarin, the [place] [employer] 2012 Guideline recommends [...] Chest 2012, 141:7S-47S Diogenes RA, et al. [facility] 2017, 70: 252-289 Performed By: #### PT, CBC, BMP, MG1, PHOS #### [facility] [address] [place], [place] [address] CBC Collected: 10/01/2017 Status: F Source: [place] 11:52 [facility] REPOSITORY TYPE CODE TESTS RESULT [...] #### PT, CBC, BMP, MG1, PHOS #### [facility] [address] [place], [place] [address] BASIC METABOLIC PANL Collected: 10/01/2017 Status: F Source: [place] 11:52 PM [facility] REPOSITORY TYPE CODE TESTS RESULT OUT OF REFERENCE UNITS RANGE LAB GLU 74-99 mg/dL High Glucose 143 Result Comment: The [place] [employer] (ADA) provides guidance for cutoff [...] Standards of Medical Care in Diabetes 2016, [place] [employer]. Diabetes Care. 2016.39(Suppl 1). LAB [...] #### PT, CBC, BMP, MG1, PHOS #### [facility] [address] [id number] MAGNESIUM Collected: 10/01/2017 Status: F Source: [place] 11:52 PM [facility] REPOSITORY TYPE CODE TESTS RESULT OUT OF REFERENCE UNITS RANGE LAB MG 1.7-2.3 mg/dL Magnesium 2.0 Performed By: #### PT, CBC, BMP, MG1, PHOS #### [address] [address] PHOSPHORUS Collected: 10/01/2017 Status: F Source: [place] 11:52 PM [facility] REPOSITORY TYPE CODE TESTS RESULT OUT OF REFERENCE UNITS RANGE LAB PHOS 2.7-4.8 mg/dL Phosphorus 3.1 Performed By: #### PT, CBC, BMP, MG1, PHOS #### [address] [address] Observed: 10/01/2017 Status: F Source: [place] URINE CULTURE 10:50 PM [facility] REPOSITORY Sp. Request/Comment: - Specimen received in preservative Culture Result - 10,000 - <50,000 CFU/ml Three or more organisms, no one type predominant, suggesting contamination during collection. Recollect if clinically indicated. Performed By: #### URCUL #### [address] [address] URINALYSIS Collected: 10/01/2017 Status: F Source: [place] 9:52 AM [facility] REPOSITORY TYPE CODE TESTS RESULT OUT OF RANGE REFERENCE UNITS LAB UCOL Yellow Color Yellow LAB [facility] Clear Clarity Abnormal Cloudy Alert LAB UGLUC Negative mg/dL Glucose, Urine Negative LAB UBIL Negative Bilirubin, Urine Negative LAB UKET Negative Ketones, Urine Negative LAB USPG 1.005-1.030 Specific [place], Ur 1.019 LAB UHGB Negative Abnormal Hemoglobin/Blood, [...] Comment: N/A Performed By: #### UA #### [facility] [address] [place], [place] [address] CONSULT PROG Observed: 10/01/2017 Status: COMPLETED Source: [place] 8:22 AM [facility] [place] REPOSITORY HNO ID: [id number] Author: Darcie Choi MD Service: Vascular Medicine [...] 01, 2017 TIME: 8:22 AM PAGER/CONTACT #: [phone] . Staff addendum: I interviewed and examined [...] Staff PROGRESS Observed: 10/01/2017 Status: COMPLETED Source: [place] 8:21 AM [facility] REPOSITORY HNO ID: [id number] Author: Coy Lambert Service: Critical Care Author Type: Physician Type: Progress Notes Filed: 10/01/2017 10:24 AM Note Text: [facility] MICU/CRITICAL CARE DAILY PROGRESS NOTE Please [...] found to be positive for lupus anticoagulant, rjys-v8-rsygkwtgrxey, and anti-cardiolipin antibodies for which she gets [...] triple positive with + lupus anticoagulant, + qyhl-s3-hzbjswiukpzi, and + anti-cardiolipin antibodies, she is on [...] 01, 2017 TIME: 8:22 AM PAGER/CONTACT #: [phone] [facility] STAFF PHYSICIAN NOTE OF PERSONAL INVOLVEMENT IN CARE I have reviewed the progress note obtained and documented by the resident and I personally participated in the fenrandes components. I have discussed the case and [...] of care,? medical plan for the day, vocational rehab consultant recommendations, medical disposition and current medical [...] INSTITUTE PROTIME Collected: 10/01/2017 Status: F Source: [place] 12:26 AM [facility] REPOSITORY TYPE CODE TESTS RESULT OUT OF RANGE REFERENCE UNITS LAB PSEC 9.7-13.0 sec High PT Sec 15.1 LAB INR 0.9-1.3 High PT INR 1.5 Result Comment: Vitamin K Antagonist (VKA) Therapeutic Range: INR 2 to 3 (Target INR of 2.5) Note: For patients treated with VKA drugs, such as warfarin, the [place] [employer]icians 2012 Guideline recommends [...] Chest 2012, 141:7S-47S Diogenes RA et al. [facility] 2017, 70: 252-289 Performed By: #### PT, CBC, BMP #### [facility] [address] [address] CBC Collected: 10/01/2017 Status: F Source: [place] 12:26 AM [facility] REPOSITORY TYPE CODE TESTS RESULT OUT [...] Performed By: #### PT, CBC, BMP #### [facility] [address] [place], [place] [address] BASIC METABOLIC PANL Collected: 10/01/2017 Status: F Source: [place] 12:26 AM [facility] REPOSITORY TYPE CODE TESTS RESULT OUT OF REFERENCE UNITS RANGE LAB GLU 74-99 mg/dL Glucose 98 Result Comment: The [place] Diabetes [employer] (ADA) provides guidance for cutoff [...] Standards of Medical Care in Diabetes 2016, [place] [employer]. Diabetes Care. 2016.39(Suppl 1). LAB [...] Performed By: #### PT, CBC, BMP #### [facility] [address] [address] CONSULT Observed: 09/30/2017 Status: COMPLETED Source: [place] 3:19 PM [facility] REPOSITORY HNO ID: [id number] Author: Michelle Randhawa (Fel) Service: Hematology/Oncology Author Type: Fellow Type: Consults Filed: 09/30/2017 3:19 PM Note Text: Please see consult note. Michelle Randhawa MD Hematology and Oncology Fellow Pager: [phone] September 30, 2017 3:19 PM CONSULT Observed: 09/30/2017 Status: COMPLETED Source: [place] 2:59 PM [facility] REPOSITORY HNO ID: [id number] Author: Tanner Lakhani Service: Hematology/Oncology Author Type: Physician Type: Consults Filed: 09/30/2017 3:49 PM Note Text: Name: Paloma Cannon Age/Sex: 27 y/o F Bed-space: [facility]-02 Reason for Consult: H/o APS Context of [...] (BACTRIM DS,SEPTRA DS) 1 tablet ORAL - warfarin 2.5 mg tab(s) (COUMADIN) 2.5 mg [...] Randhawa MD Hematology and Oncology Fellow Pager: [phone] September 30, 2017 3:18 PM [facility] STAFF PHYSICIAN NOTE OF PERSONAL [...] Monday. Tanner Lakhani MD Staff Hematology Pager [phone] Date of Service: 09/30/2017 Time of Service: 3:49 PM PROGRESS Observed: 09/30/2017 Status: COMPLETED Source: [place] 1:21 PM [facility] REPOSITORY HNO ID: [id number] Author: Niharika Laird MD Service: Critical Care [...] found to be positive for lupus anticoagulant, vami-n6-txudshdpvbkk, and anti-cardiolipin antibodies for which she gets [...] triple positive with + lupus anticoagulant, + awzd-x8-ldahyeeqeznf, and + anti-cardiolipin antibodies, she is on [...] 30, 2017 TIME: 1:21 PM PAGER/CONTACT #: [phone] PROTIME Collected: 09/30/2017 Status: F Source: [place] 12:39 PM [facility] REPOSIT[facility] TYPE CODE TESTS RESULT OUT OF RANGE REFERENCE UNITS LAB PSEC 9.7-13.0 sec High PT Sec 18.5 LAB INR 0.9-1.3 High PT INR 1.9 Result Comment: Vitamin K Antagonist (VKA) Therapeutic Range: INR 2 to 3 (Target INR of 2.5) Note: For patients treated with VKA drugs, such as warfarin, the [place] [employer]icians 2012 Guideline recommends [...] Chest 2012, 141:7S-47S Diogenes RESENDIZ, et al. [facility] 2017, 70: 252-289 Performed By: #### PT #### [facility] [address] [place], [place] [address] NUTRITION Observed: 09/30/2017 Status: COMPLETED Source: [place] 10:52 AM [facility] REPOSITORY HNO ID: [id number] Author: Camilla Jose (Diet-T) Service: Nutrition Therapy Author Type: Equity Research Analyst Type: Nutrition Filed: 09/30/2017 10:53 AM Note [...] September 30, 2017 TIME: 10:52 AM PAGER: [phone] PROGRESS Observed: 09/30/2017 Status: COMPLETED Source: [place] 10:22 AM [facility] REPOSITORY HNO ID: [id number] Author: Coy Lambert Service: Pulmonary Disease Author Type: Physician Type: Progress Notes Filed: 09/30/2017 10:39 AM Note Text: [facility] STAFF PHYSICIAN NOTE OF PERSONAL INVOLVEMENT [...] of care, medical plan for the day, vocational rehab consultant recommendations, medical disposition and current medical [...] INSTITUTE CONSULT Observed: 09/30/2017 Status: COMPLETED Source: [place] 9:52 AM [facility] REPOSITORY HNO ID: [id number] Author: Darcie Choi MD Service: Vascular Medicine Author Type: Physician Type: Consults Filed: 09/30/2017 3:41 PM Note Text: VASCULAR MEDICINE INITIAL CONSULT SERVICE DATE: 09/30/2017 SERVICE TIME: 9:52am Requesting Provider: Dr. Ernie Klein Opinion/advice regarding: anticoagulation Subjective CHIEF COMPLAINT: hemoptysis [...] (FLONASE) 50 mcg/actuation nasal spray Use 1 Oakwood in each nostril once daily. senna 8.6 [...] with urination: N/A Blood in urine: No COOKER LOADER: Abnormal vaginal bleeding: No History of loss: [...] 30, 2017 TIME: 1:45 PM PAGER/CONTACT #: [phone] . Staff addendum: I interviewed and examined [...] Staff CBC Collected: 09/30/2017 Status: F Source: [place] 8:37 AM [facility] REPOSITORY TYPE CODE TESTS RESULT OUT [...] Absolute nRBC Performed By: #### CBC #### [facility] [address] [place], [place] [address] CBC AND DIFFERENTIAL Collected: 09/29/2017 Status: F Source: [place] 11:47 PM [facility] [place] REPOSITORY TYPE CODE TESTS RESULT OUT OF [...] Abs 0.14 Low Lymph LAB AMONO % Owen% 6.1 LAB AAMONO <0.87 k/uL Abs 0.32 Owen LAB AEOS % 2.8 Eosin% LAB AAEOS <0.46 k/uL Abs 0.15 Eosin LAB ABASO % Baso% 0.4 LAB AABASO <0.11 k/uL Abs <0.03 Baso LAB AUNRBC 0 /100 WBC NRBCs 0.0 LAB ABNRBC <0.01 k/uL <0.01 Absolute nRBC LAB DTYP DTYPE Auto Diff Performed By: #### CBCDIF, CMP, MG1, PHOS #### [facility] [address] [place] [id number] COMP METABOLIC PANEL Collected: 09/29/2017 Status: F Source: [place] 11:47 PM [facility] REPOSITORY TYPE CODE TESTS RESULT OUT [...] mg/dL Glucose High 116 Result Comment: The [place] Diabetes [employer] (ADA) provides guidance for cutoff [...] Standards of Medical Care in Diabetes 2016, [place] [employer]. Diabetes Care. 2016.39(Suppl 1). LAB [...] By: #### CBCDIF, CMP, MG1, PHOS #### [facility] [address] [place], [place] [address] MAGNESIUM Collected: 09/29/2017 Status: F Source: [place] 11:47 PM [facility] REPOSITORY TYPE CODE TESTS RESULT OUT OF REFERENCE UNITS RANGE LAB MG 1.7-2.3 mg/dL Magnesium 1.8 Performed By: #### CBCDIF, CMP, MG1, PHOS #### [facility] [address] [place], [place] [address] PHOSPHORUS Collected: 09/29/2017 Status: F Source: [place] 11:47 PM [facility] REPOSITORY TYPE CODE TESTS RESULT OUT OF REFERENCE UNITS RANGE LAB PHOS 2.7-4.8 mg/dL Phosphorus 4.0 Performed By: #### CBCDIF, CMP, MG1, PHOS #### [facility] [address] [place], [place] [id number] HISTORY PHYSICAL Observed: 09/29/2017 Status: COMPLETED Source: [place] 11:23 PM [facility] REPOSITORY HNO ID: [id number] Author: Austen Choudhury Service: Critical Care Author Type: Physician Type: HANDP Filed: 09/29/2017 11:42 PM Note Text: [facility] STAFF PHYSICIAN NOTE OF PERSONAL INVOLVEMENT [...] with antiphospholipid syndrome (+ lupus anticoagulant, + lsau-e8-vromhtfefcvo, and + anti-cardiolipin antibodies) on plasmapheresis since [...] minutes. SIGNATURE: Austen Choudhury MD [facility] PAGER:[phone] DATE of SERVICE: September 29, 2017 ED NOTE Observed: 09/29/2017 Status: COMPLETED Source: [place] 10:10 PM [facility] REPOSITORY HNO ID: [id number] Author: Irasema Zaragoza RN Service: Emergency Medicine Author Type: Registered Nurse Type: ED Notes Filed: 09/29/2017 10:16 PM Note Text: Report given to JEFF Armenta. HISTORY PHYSICAL Observed: 09/29/2017 Status: COMPLETED Source: [place] 10:03 PM [facility] REPOSITORY HNO ID: [id number] Author: Ernie Klein Service: Critical Care Author [...] found to be positive for lupus anticoagulant, ldib-h0-hnkshoxgevcc, and anti-cardiolipin antibodies for which she gets [...] (BACTRIM DS,SEPTRA DS) 1 tablet ORAL MO-WE-FR [START ON 09/30/2017] warfarin 2.5 mg tab(s) [...] 117 (!) 110 (!) 111 113 Resp: 22 22 20 Temp: 37.2 ?C (98.9 ?F) 37.1 ?C (98.8 ?F) TempSrc: Oral Oral SpO2: (!) 92% (!) 93% 96% Weight: 97.2 kg (214 lb 4.6 oz) Height: NET FLUID BALANCE No intake or output data in the 24 hours ending 09/29/17 2358 INFUSIONS: No Other Lines/Drains: Peripheral IVs HEENT: [...] found to be positive for lupus anticoagulant, sukk-p8-enuuvwfzvhch, and anti-cardiolipin antibodies for which she gets [...] triple positive with + lupus anticoagulant, + sjvg-i1-rgjmscnzkiyt, and + anti-cardiolipin antibodies, she is on [...] Renal vein thrombosis with additional insult in 14 from contrast induced nephropathy. Per records her [...] No Ernie Klein MD Internal Medicine- PGY3 Pager:[phone] September 29, 2017 10:04 PM ED NOTE Observed: 09/29/2017 Status: COMPLETED Source: [place] 9:30 PM [facility] [place] REPOSITORY HNO ID: [id number] Author: Irasema Sauer) JEFF Zaragoza Service: Emergency Medicine Author Type: Registered Nurse Type: ED Notes Filed: 09/29/2017 10:17 PM Note Text: Pt sitting in bed with a snack. No complaints at this time. Denies sob and chest pain. NAD noted. Will continue to monitor. PROGRESS Observed: 09/29/2017 Status: COMPLETED Source: [place] 6:17 PM [facility] REPOSITORY HNO ID: [id number] Author: Sue Bah (Rt) Service: Radiology Author Type: Shipping Supervisor Type: Progress Notes Filed: 09/29/2017 6:17 PM [...] PROV NOTE Observed: 09/29/2017 Status: COMPLETED Source: [place] 6:12 PM [facility] REPOSITORY HNO ID: [id number] Author: Fany Shine MD Service: Emergency Medicine Author Type: Physician [...] of disposition: stable SIGNATURE: MD Harvinder Ngo (Res) [place] Resident 09/29/17 1903 Harvinder Kang (Res) [place] Resident 09/29/17 [id number] Attending Note I evaluated the patient and [...] ED NOTE Observed: 09/29/2017 Status: COMPLETED Source: [place] 6:07 PM [facility] REPOSITORY HNO ID: [id number] Author: Irasema (Rn) JEFF Zaragoza Service: Emergency Medicine Author Type: Registered Nurse Type: ED Notes Filed: 09/29/2017 6:07 PM Note Text: Labs were drawn and sent. CBC AND DIFFERENTIAL Collected: 09/29/2017 Status: F Source: [place] 6:04 PM [facility] REPOSITORY TYPE CODE TESTS RESULT OUT [...] Abs 0.14 Low Lymph LAB AMONO % Owen% 6.9 LAB AAMONO <0.87 k/uL Abs 0.45 Owen LAB AEOS % 2.8 Eosin% LAB AAEOS <0.46 k/uL Abs 0.18 Eosin LAB ABASO % Baso% 0.6 LAB AABASO <0.11 k/uL Abs 0.04 Baso LAB AUNRBC 0 /100 WBC NRBCs 0.0 LAB ABNRBC <0.01 k/uL <0.01 Absolute nRBC LAB DTYP DTYPE Auto Diff Performed By: #### CBCDIF, CMP, MG1 #### [facility] [address] [place], [place] [address] COMP METABOLIC PANEL Collected: 09/29/2017 Status: F Source: [place] 6:04 PM [facility] REPOSITORY TYPE CODE TESTS RESULT [...] 74-99 mg/dL Glucose 74 Result Comment: The [place] [employer] (ADA) provides guidance for cutoff [...] Standards of Medical Care in Diabetes 2016, [place] [employer]. Diabetes Care. 2016.39(Suppl 1). LAB [...] Performed By: #### CBCDIF, CMP, MG1 #### [facility] [address] [place], [place] [address] MAGNESIUM Collected: 09/29/2017 Status: F Source: [place] 6:04 [facility] REPOSITORY TYPE CODE TESTS RESULT OUT OF REFERENCE UNITS RANGE LAB MG 1.7-2.3 mg/dL Magnesium 1.7 Performed By: #### CBCDIF, CMP, MG1 #### [facility] [address] [place], [place] [address] PROTIME Collected: 09/29/2017 Status: F Source: [place] 6:04 [facility] REPOSITORY TYPE CODE TESTS RESULT OUT OF RANGE REFERENCE UNITS LAB PSEC 9.7-13.0 sec High PT Sec 20.3 LAB INR 0.9-1.3 High PT INR 2.1 Result Comment: Vitamin K Antagonist (VKA) Therapeutic Range: INR 2 to 3 (Target INR of 2.5) Note: For patients treated with VKA drugs, such as warfarin, the [employer]icians 2012 Guideline recommends [...] Chest 2012, 141:7S-47S Diogenes RA, et al. [facility] 2017, 70: 252-289 Performed By: #### PT, PTT #### [facility] [address], [place] [address] APTT Collected: 09/29/2017 Status: F Source: [place] 6:04 PM [facility] REPOSITORY TYPE CODE TESTS RESULT OUT [...] Hospital. Performed By: #### PT, PTT #### [facility] [address], [place] [address] TYPE AND SCREEN Collected: 09/29/2017 Status: F Source: [place] 6:04 [facility] REPOSITORY TYPE CODE TESTS RESULT OUT OF REFERENCE UNITS RANGE LAB %ABR B ABO/RH(D) POSITIVE LAB % Antibody POS Screen Performed By: #### TSCR #### [facility] [address], [place] [address] XR CHEST 1V FRONTAL Observed: 09/29/2017 Status: F Source: [facility] 5:50 PM [facility] REPOSITORY * * *Final Report* * * [...] unremarkable. Other: Osseous structures are grossly unremarkable. Dopeman: PSCB Transcribe Date/Time: Sep 29 2017 6:23P Dictated by : ASHLIE ROSAS MD This examination was interpreted and the report reviewed and electronically signed by: NAVI LOWERY MD on Sep 29 2017 6:31PM EST [id number] ED NOTE Observed: 09/29/2017 Status: COMPLETED Source: [place] 5:40 PM [facility] REPOSITORY HNO ID: [id number] Author: Irasema SanchezRn) JEFF Zaragoza Service: Emergency [...] ED NOTE Observed: 09/29/2017 Status: COMPLETED Source: [place] 5:38 PM [facility] REPOSITORY HNO ID: [id number] Author: Christin Lea Service: Emergency Medicine Author [...] ED NOTE Observed: 09/29/2017 Status: COMPLETED Source: [place] 5:36 PM [facility] REPOSITORY HNO ID: [id number] Author: Teresa SanchezCt) [place] Service: Emergency Medicine Author Type: Clinical Shipping Supervisor Type: ED Notes Filed: 09/29/2017 5:37 PM Note Text: EKG OBTAINED IN INTAKE UPON ARRIVAL. ED NOTE Observed: 09/29/2017 Status: COMPLETED Source: [place] 5:27 PM [facility] REPOSITORY HNO ID: [id number] Author: Teresa Lawson) [place] Service: Emergency Medicine Author Type: Clinical Shipping Supervisor Type: ED Notes Filed: 09/29/2017 5:27 PM Note Text: EKG OBTAINED IN INTAKE UPON ARRIVAL. ED TRIAGE NOTE Observed: 09/29/2017 Status: COMPLETED Source: [place] 5:24 PM [facility] REPOSITORY HNO ID: [id number] Author: CY Byrnes (Pa) Service: Emergency Medicine Author Type: Physician Reprint Sorter Type: ED Triage Notes Filed: 09/29/2017 5:26 [...] ED NOTE Observed: 09/29/2017 Status: COMPLETED Source: [place] 5:20 PM [facility] REPOSITORY HNO ID: [id number] Author: Angella SanchezRnDevonte Farai RN Service: Emergency Medicine Author Type: Registered [...] TIME W/INR Collected: 09/29/2017 Status: F Source: [place] 8:00 AM [facility] [place] Order Comment: MEDOUT/PORT DRAW TYPE CODE TESTS RESULT OUT OF RANGE REFERENCE UNITS LAB L300.4150 11.7-14.9 SECONDS High PROTIME 23.1 LAB L300.4200 Normal INR 2.0 Performed By: #### L300.3900 #### [facility] [address] [place], [address] PROGRESS Observed: 09/27/2017 Status: COMPLETED Source: [place] 4:08 PM [facility] REPOSITORY HNO ID: [id number] Author: Dominique Wright Service: (none) Author Type: [...] (FLONASE) 50 mcg/actuation nasal spray Use 1 Oakwood in each nostril once daily. pantoprazole DR [...] p.m. PROGRESS Observed: 09/27/2017 Status: COMPLETED Source: [place] 3:48 PM [facility] REPOSITORY HNO ID: [id number] Author: Devi Sauer) JEFF Fernandes Service: (none) Author Type: Registered Nurse Type: Progress Notes Filed: 09/27/2017 5:00 PM Note Text: Sterile dressing change completed on apheresis catheter and PICC catheter sites. Sterile cap change of PICC line performed. No complications. Devi Fernandes RN CNOV Observed: 09/27/2017 Status: COMPLETED Source: [place] 3:45 PM [facility] REPOSITORY Office Visit (INFDMN) PALOMA CANNON ([id number]) 1990 F PTR Date Time Provider Department [...] (FLONASE) 50 mcg/actuation nasal spray Use 1 Oakwood in each nostril once daily. pantoprazole DR [...] * FLUTICASONE 50 MCG/ACTUATION * Use 1 Oakwood in each nostril o* PANTOPRAZOLE 40 MG [...] Status:Closed by DOMINIQUE WRIGHT MD on 09/27/17 OVS Observed: 09/27/2017 Status: COMPLETED Source: [place] 3:00 PM [facility] REPOSITORY Visit (SP) Office (HPAN) PALOMA CANNON ([id number]) 1990 F PTR Date Time Provider Department 09/27/17 3:00 PM [facility]HERESIS DAREK MAIN [facility] During your visit today, we recorded the following information about you: Devi Fernandes, RN, RN 09/27/2017 5:00 PM Signed Sterile dressing change completed on apheresis catheter and PICC catheter sites. Sterile cap change of PICC line performed. No complications. Devi Fernandes RN Referring Provider: SELF [200] Allergies As [...] enzymes Date Reviewed: 09/27/2017 Reviewed by: Aline Barreto MA - Fully Assessed Primary Visit Diagnosis:APS (antiphospholipid syndrome) ([facility]) [D68.61] Prescriptions as of 09/27/2017 Sig: [...] * FLUTICASONE 50 MCG/ACTUATION * Use 1 Oakwood in each nostril o* PANTOPRAZOLE 40 MG [...] TIME W/INR Collected: 09/22/2017 Status: F Source: [place] 8:05 AM [facility] REPOSITORY Order Comment: MEDOUT/PORT DRAW TYPE CODE TESTS RESULT OUT OF RANGE REFERENCE UNITS LAB L300.4150 11.7-14.9 SECONDS High PROTIME 19.4 LAB L300.4200 Normal INR 1.6 Performed By: #### L300.3900 #### [facility] [address] [place], [address] PROGRESS Observed: 09/18/2017 Status: COMPLETED Source: [place] 1:57 PM [facility] REPOSITORY HNO ID: [id number] Author: Elsa Mello (Coord) Service: (none) Author Type: Workday Director Type: Progress Notes Filed: 09/18/2017 1:57 PM Note Text: Patient had appointments today at [facility]. I provided a parking pass. Adriana Mello Patient Professor Of Violin [facility] [phone] / [phone] PROGRESS Observed: 09/18/2017 Status: COMPLETED Source: [place] 1:13 PM [facility] REPOSITORY HNO ID: [id number] Author: Lisseth Claudio MD Service: (none) Author [...] left and blue port Medications given: See [facility] audit report. Volume treated: 6505 ml whole [...] treatment: 10/02/2017 Signed by: Devi Fernandes RN [facility] STAFF PHYSICIAN NOTE OF PERSONAL INVOLVEMENT [...] MD September 18, 2017 3:29 PM Pager: [phone] CBC AND DIFFERENTIAL Collected: 09/18/2017 Status: F Source: [place] 12:36 PM [facility] REPOSITORY TYPE CODE TESTS RESULT OUT [...] Abs 0.31 Low Lymph LAB AMONO % Owen% 6.3 LAB AAMONO <0.87 k/uL Abs 0.36 Owen LAB AEOS % 3.0 Eosin% LAB AAEOS <0.46 k/uL Abs 0.17 Eosin LAB ABASO % Baso% 0.7 LAB AABASO <0.11 k/uL Abs 0.04 Baso LAB AUNRBC 0 /100 WBC NRBCs 0.0 LAB ABNRBC <0.01 k/uL <0.01 Absolute nRBC LAB DTYP DTYPE Auto Diff Performed By: #### CBCDIF, CMP #### [facility] [address] [place], [place] [address] COMP METABOLIC PANEL Collected: 09/18/2017 Status: F Source: [place] 12:36 PM [facility] REPOSITORY TYPE CODE TESTS RESULT OUT OF REFERENCE UNITS RANGE LAB TP 6.3-8.0 g/dL Low Protein, Total 5.8 LAB ALB 3.9-4.9 g/dL Low Albumin 3.6 LAB CA 8.5-10.2 mg/dL Calcium, Total 8.8 LAB TBIL 0.2-1.3 mg/dL Bilirubin, Total 0.6 LAB ALKP 32-117 U/L Alkaline Phosphatase 58 LAB AST 13-35 U/L AST 20 LAB GLU 74-99 mg/dL Glucose 99 Result Comment: The [place] [employer] (ADA) provides guidance for cutoff [...] Standards of Medical Care in Diabetes 2016, [place] [employer]. Diabetes Care. 2016.39(Suppl 1). LAB [...] GFR. Performed By: #### CBCDIF, CMP #### [facility] [address], [place] [address] FACTOR VIII:C ASSAY Collected: 09/18/2017 Status: F Source: [place] 12:36 [facility] REPOSITORY TYPE CODE TESTS RESULT [...] months. Performed By: #### FVIIIC, LUPUSP #### [facility] [address], [place] [address] LUPUS ANTICOAG PANEL Collected: 09/18/2017 Status: F Source: [place] 12:36 [facility] REPOSITORY TYPE CODE TESTS RESULT OUT OF RANGE REFERENCE UNITS LAB PSEC 9.7-13.0 sec High PT Sec 14.6 LAB INR 0.9-1.3 High PT INR 1.4 Result Comment: Vitamin K Antagonist (VKA) Therapeutic Range: INR 2 to 3 (Target INR of 2.5) Note: For patients treated with VKA drugs, such as warfarin, the [place] [employer] 2012 Guideline recommends [...] Chest 2012, 141:7S-47S Diogenes RA, et al. [facility] 2017, 70: 252-289 LAB APTT 23.0-32.4 sec [...] titer. Performed By: #### FVIIIC, LUPUSP #### [facility] [address] [place] [address] OVSP Observed: 09/18/2017 Status: COMPLETED Source: [place] 12:00 PM [facility] REPOSITORY Visit (SP) Office ([facility]) ADVISPALOMA Aguilar ([id number]) 1990 F PTR Date Time Provider Department 09/18/17 12:00 PM [facility]ESIS DAREK MAIN [facility] During your visit today, we recorded the [...] left and blue port Medications given: See [facility] audit report. Volume treated: 6505 ml whole [...] treatment: 10/02/2017 Signed by: Devi Fernandes RN [facility] STAFF PHYSICIAN NOTE OF PERSONAL INVOLVEMENT [...] MD September 18, 2017 3:29 PM Pager: [phone] Referring Provider: LISSETH CLAUDIO [[id number]] Allergies As of Date: 09/18/2017 Noted Allergy [...] Plasmapheresis [1323] Primary Visit Diagnosis:APS (antiphospholipid syndrome) ([facility]) [D68.61] Order(s):LUPUS ANTICOAG PL [SQLUPUSP] Order #: [id number]. #:[id number] CBC + DIFF [SQCBCDIF] Order #: [id number]. #:[id number] COMP METABOLIC PANEL [SQCMP] Order #: [id number]. #:[id number] [facility] NUR[facility] [[id number]] Order #: [id number]: 1 TREATMENT PARAMETERS [[id number]] Order #: [id number]: 1 [facility] NUR[facility] COMMUN[facility] [[id number]] Order #: [id number]: 1 STANDING [] diphenhydrAMINE 50 mg injection [...] * FLUTICASONE 50 MCG/ACTUATION * Use 1 Oakwood in each nostril o* PANTOPRAZOLE 40 MG [...] 09/18/17 HOSP Observed: 09/18/2017 Status: COMPLETED Source: [place] 12:00 AM [facility] REPOSITORY Patient Update ([facility]) PALOMA CANNON ([id number]) 1990 F PTR Date Time Provider Department 09/18/17 ELSA MELLO (COORD) [facility] During your visit today, we recorded the following information about you: Elsa Mello, Capri 09/18/2017 1:57 PM Signed Patient had appointments today at [facility]. I provided a parking pass. Adriana Mello Patient Professor Of Violin [facility] [phone] / [phone] Allergies As of Date: 09/18/2017 Noted Allergy [...] * FLUTICASONE 50 MCG/ACTUATION * Use 1 Oakwood in each nostril o* PANTOPRAZOLE 40 MG [...] Priority: D More... DVT (deep venous thrombosis) ([facility]) [I82.409] INVALID FOR*01/11/2017 Priority: D More... [...] Encounter Status:Closed by ELSA MELLO on 09/18/17 CNPN Observed: 09/18/2017 Status: COMPLETED Source: [place] 12:00 AM [facility] REPOSITORY Telephone ([employer]) DAVISPALOMA ([id number]) 1990 F PTR Date Time Provider Department 09/18/17 MAGDALENA PARMAR (ELLIOTT) JOYCEVMÁngela During your visit today, we recorded the following information about you: Magdalena Lewis CNP, ELLIOTT 09/18/2017 4:07 PM Addendum INR today is [...] * FLUTICASONE 50 MCG/ACTUATION * Use 1 Oakwood in each nostril o* PANTOPRAZOLE 40 MG [...] 09/15/2017 Status: F Source: [place] 8:00 AM [facility] REPOS[facility] TYPE CODE TESTS RESULT OUT OF RANGE REFERENCE UNITS LAB L300.4150 11.7-14.9 SECONDS High PROTIME 24.5 LAB L300.4200 Normal INR 2.2 Performed By: #### L300.3900 #### [facility] [address] [place], [address] PROGRESS Observed: 09/12/2017 Status: COMPLETED Source: [place] 2:21 PM [facility] [place] REPOSITORY HNO ID: [id number] Author: Geraldine Linares (Sw) Service: (none) Author Type: Workday Director Type: Progress Notes Filed: 09/28/2017 10:39 AM Note Text: Erika met with patient to assess service needs in home and community. Patient has interest in therapy dog and in home care assistance. Erika discussed applying to [place] Medicaid Home Care Waiver. Patient signed home care waiver referral form. Waiver could assist with Emergency Response system, home adaptive medical equipment, home delivered meals, and director career to assist with coordinating health care needs. Erika will also research therapy dog request and let patient know how to go about obtaining therapy pet. Patient also reports that she is seeing counselor at [facility]. Erika discussed with patient signing consent through [facility] in order for continuity of care for patient and [facility]. Patient reports that she will sign consent to better discuss patient care. PROGRESS Observed: 09/12/2017 Status: COMPLETED Source: [place] 8:14 AM [facility] REPOSITORY O ID: [id number] Author: Akhil Howard Service: (none) Author Type: [...] Clostridium difficile colitis. Patient was admitted to [facility] on 08/25 for a 12 day admission. [...] at night. Follow up appointment yesterday with wooden box maker showing a 75% lung improvement. Complaints today [...] condenser for travel and long trips to [facility]. Requiring wheelchair for extended travel. Previous wheelchair [...] (FLONASE) 50 mcg/actuation nasal spray Use 1 Oakwood in each nostril once daily. pantoprazole DR [...] 3 additional months. Managed by oncology/hematology at [facility] - COMPOUNDED PRESCRIPTION- O2 condenser - STANDARD WHEELCHAIR - Follow up as scheduled in 2 months propeller layout worker, Geraldine Linares, Met with patient and to discuss out patient resources and to investigate service dog/animal for depressive symptoms. Prescription instructions reviewed with patient as applicable. Potential red flag symptoms discussed with the patient. Reviewed appropriate action plan to take if red flag symptoms occur. Patient agreeable to treatment plan. Akhli Howard CNP CNOV Observed: 09/12/2017 Status: COMPLETED Source: [place] 8:00 AM [facility] REPOSITORY Office Visit ([facility]) PALOMA ACNNON ([id number]) 1990 F [facility] Date Time Provider Department 09/12/17 8:00 AM AKHIL HOWARD) INTMWS During your visit today, we recorded [...] Clostridium difficile colitis. Patient was admitted to [facility] on 08/25 for a 12 day admission. [...] at night. Follow up appointment yesterday with wooden box maker showing a 75% lung improvement. Complaints today [...] condenser for travel and long trips to [facility]. Requiring wheelchair for extended travel. Previous wheelchair [...] (FLONASE) 50 mcg/actuation nasal spray Use 1 Oakwood in each nostril once daily. pantoprazole DR [...] 3 additional months. Managed by oncology/hematology at [facility] main - COMPOUNDED PRESCRIPTION- O2 condenser - STANDARD WHEELCHAIR - Follow up as scheduled in 2 months propeller layout worker, Geraldine Linares, Met with patient and [...] for Nausea/Vomiting.Disp: 40 tabletRfl: 3 STANDARD WHEELCHAIR [[id number]] Order #: [id number] gabapentin (NEURONTIN) 300 mg capsuleTake 600mg in [...] * FLUTICASONE 50 MCG/ACTUATION * Use 1 Oakwood in each nostril o* PANTOPRAZOLE 40 MG [...] 09/12/17 CNSW Observed: 09/12/2017 Status: COMPLETED Source: [place] 12:00 AM [facility] REPOSITORY Social Work (NAVWST) PALOMA CANNON ([id number]) 1990 F PTR Date Time Provider Department 09/12/17 GERALDINE LINARES) AWILDA During your visit today, we recorded the following information about you: JAKE Abbott 09/28/2017 10:39 AM Signed Erika met with patient to assess service needs in home and community. Patient has interest in therapy dog and in home care assistance. Erika discussed applying to [place] Medicaid Home Care Waiver. Patient signed home care waiver referral form. Waiver could assist with Emergency Response system, home adaptive medical equipment, home delivered meals, and director career to assist with coordinating health care needs. [...] * FLUTICASONE 50 MCG/ACTUATION * Use 1 Oakwood in each nostril o* PANTOPRAZOLE 40 MG [...] 09/28/17 URINALYSIS Collected: 09/11/2017 Status: F Source: [place] 1:36 PM [facility] REPOSITORY TYPE CODE TESTS RESULT OUT OF RANGE REFERENCE UNITS LAB UCOL Yellow Color Yellow LAB [facility] Clear Clarity Abnormal Cloudy Alert LAB UGLUC Negative mg/dL Glucose, Urine Negative LAB UBIL Negative Bilirubin, Urine Negative LAB UKET Negative Ketones, Urine Negative LAB [facility] 1.005-1.030 Specific [place], Ur 1.020 LAB UHGB Negative Hemoglobin/Blood, Negative [...] Oxalate Crystal Performed By: #### UA #### [facility] [address] [place], [place] [address] COMP METABOLIC PANEL Collected: 09/11/2017 Status: F Source: [place] 12:04 [facility] REPOSITORY TYPE CODE TESTS RESULT OUT OF REFERENCE UNITS RANGE LAB TP 6.3-8.0 g/dL Low Protein, Total 6.2 LAB ALB 3.9-4.9 g/dL Albumin 4.1 LAB CA 8.5-10.2 mg/dL Calcium, Total 8.8 LAB TBIL 0.2-1.3 mg/dL Bilirubin, Total 0.4 LAB ALKP 32-117 U/L Alkaline Phosphatase 50 LAB AST 13-35 U/L AST 16 LAB GLU 74-99 mg/dL Glucose High 134 Result Comment: The [place] [employer] (ADA) provides guidance for cutoff [...] Standards of Medical Care in Diabetes 2016, [place] [employer]. Diabetes Care. 2016.39(Suppl 1). LAB [...] Performed By: #### CMP, CRP, WSR #### [facility] [address] [place] [address] C-REACTIVE PROTEIN Collected: 09/11/2017 Status: F Source: [place] 12:04 PM [facility] REPOSITORY TYPE CODE TESTS RESULT OUT OF REFERENCE UNITS RANGE LAB CRP <0.9 mg/dL C-Reactive 0.4 Protein Performed By: #### CMP, CRP, WSR #### [facility] [address] [place] [address] SED RATE WESTERGREN Collected: 09/11/2017 Status: F Source: [place] 12:04 PM [facility] REPOSITORY TYPE CODE TESTS RESULT OUT OF REFERENCE UNITS RANGE LAB WSR 0-20 mm/hr Sed Rate Westergren 8 Performed By: #### CMP, CRP, WSR #### [facility] [address] [place], [place] [address] CNOV Observed: 09/11/2017 Status: COMPLETED Source: [place] 11:55 AM [facility] REPOSITORY Office Visit (MICHAEL) PALOMA CANNON ([id number]) 1990 F PTR Date Time Provider Department [...] triple positive with + lupus anticoagulant, + geyp-p2-nykhcovnsxlu, and + anti-cardiolipin antibodies. She has been [...] CONSULT TO PHYSICAL THERAPY [9032] Order #: [id number]: 1 XR CHEST 2V FRONTAL/LAT [[id number]] Order #: [id number] FUTURE COMP METABOLIC PANEL [SQCMP] Order #: [id number] FUTURE UA CHEMSTRIP ONLY [SQUA] Order #: [id number] FUTURE SED RATE WESTERGREN [SQWSR] Order #: [id number] FUTURE C-REACTIVE PROTEIN (CRP) [SQCRP] Order #: [id number] FUTURE predniSONE (DELTASONE) 5 mg tabletTake 1 [...] daily. FLUTICASONE 50 MCG/ACTUATION * Use 1 Oakwood in each nostril o* PANTOPRAZOLE 40 MG [...] AND DIFFERENTIAL Collected: 09/11/2017 Status: F Source: [place] 11:51 AM [facility] [place] REPOSITORY TYPE CODE TESTS RESULT OUT OF [...] Abs 0.36 Low Lymph LAB AMONO % Owen% 4.4 LAB AAMONO <0.87 k/uL Abs 0.26 Owen LAB AEOS % 1.8 Eosin% LAB AAEOS <0.46 k/uL Abs 0.11 Eosin LAB ABASO % Baso% 0.5 LAB AABASO <0.11 k/uL Abs 0.03 Baso LAB AUNRBC 0 /100 WBC NRBCs 0.0 LAB ABNRBC <0.01 k/uL <0.01 Absolute nRBC LAB DTYP DTYPE Auto Diff Performed By: #### CBCDIF #### [facility] [address] [place], [place] [address] PROGRESS Observed: 09/11/2017 Status: COMPLETED Source: [place] 11:09 AM [facility] [place] REPOSITORY HNO ID: [id number] Author: Guillaume Alicea Service: (none) Author Type: [...] triple positive with + lupus anticoagulant, + iseu-k4-tldmxldkvjoc, and + anti-cardiolipin antibodies. She has been [...] WO IVCON Observed: 09/11/2017 Status: F Source: [place] 9:56 AM [facility] REPOSITORY * * *Final Report* * * DATE OF EXAM: Sep 11 2017 9:56AM [facility] - CT CHEST WO IVCON / [...] nodular opacities probably infectious or aspiration induced. Dopeman: PSCB Transcribe Date/Time: Sep 11 2017 11:15A Dictated by : KEREN BLANCO MD This examination was interpreted and the report reviewed and electronically signed by: KEREN BLANCO MD on Sep 11 2017 11:30AM EST [id number] PROGRESS Observed: 09/11/2017 Status: COMPLETED Source: [place] 9:47 AM [facility] REPOSITORY HNO ID: [id number] Author: ROXY Romero (Ct) Service: Radiology Author Type: Clinical Shipping Supervisor Type: Progress Notes Filed: 09/11/2017 9:58 AM [...] TIME W/INR Collected: 09/11/2017 Status: F Source: [place] 8:05 AM [facility] RE[facility] Order Comment: MEDOUT/PORT DRAW TYPE CODE TESTS RESULT OUT OF RANGE REFERENCE UNITS LAB L300.4150 11.7-14.9 SECONDS High PROTIME 22.5 LAB L300.4200 Normal INR 2.0 Performed By: #### L300.3900 #### [facility] [address] [place], [address] CBC W/DIFF, AUTOMATED Collected: 09/11/2017 Status: F Source: [place] 8:05 AM [facility] REPOSITORY Order Comment: Comments: ABIGAIL NARANJO SALES DEVELOPMENT CONSULTANT, FAX TO [phone] TYPE CODE TESTS RESULT OUT OF RANGE [...] LARGE PLTS. Performed By: #### L100.0100 #### [facility] [address] [place], [place], [address] HOSP Observed: 09/11/2017 Status: COMPLETED Source: [place] 12:00 AM [facility] REPOSITORY Patient Update (INFDMN) PALOMA CANNON ([id number]) 1990 F PTR Date Time Provider Department 09/11/17 DOMINIQUE WRIGHT During your visit today, we recorded the following information about you: Aleta Lamas Sec 09/11/2017 2:31 PM Signed Per orders of Dr.Koval chela luis. She is keeps the line for other reasons. Notified [facility] at [phone]. Spoke with Ursula. Aleta Lamas Sec Allergies [...] - Fully Assessed Reason for Visit: Petrona Savage [[id number]] Prescriptions as of 09/11/2017 Sig: CYCLOPHOSPHAMIDE [...] daily. FLUTICASONE 50 MCG/ACTUATION * Use 1 Oakwood in each nostril o* PANTOPRAZOLE 40 MG [...] keeps the line for other reasons. Notified [facility] at [phone]. Spoke with Ursula. Aleta Ventura Encounter Status:Closed by ALETA BENITES on 09/11/17 PROTHROMBIN TIME W/INR Collected: 09/08/2017 Status: F Source: [place] 8:00 AM [facility] RE[facility] Order Comment: MEDOUT/PORT DRAW TYPE CODE TESTS RESULT OUT OF RANGE REFERENCE UNITS LAB L300.4150 11.7-14.9 SECONDS High PROTIME 17.6 LAB L300.4200 Normal INR 1.4 Performed By: #### L300.3900 #### [facility] [place], [address] PT ED Observed: 09/06/2017 Status: COMPLETED Source: [place] 2:09 PM [facility] REPOSITORY HNO ID: [id number] Author: Denise SanchezRn) Timo Huffman RN Service: (none) Author Type: Registered Nurse Type: Patient Education Filed: 09/06/2017 2:20 PM Note Text: PATIENT EDUCATION TOPIC: PATIENT INFORMATION: Discharge PATIENT NAME: Paloma Cannon PATIENT LOCATION: [place] [address] READINESS TO LEARN COGNITIVE ABILITY: Alert and [...] CASE MANAGEM Observed: 09/06/2017 Status: COMPLETED Source: [place] 2:09 PM [facility] REPOSITORY HNO ID: [id number] Author: Dary SanchezRn) JEFF Jimenes Service: Care Management Author Type: Registered Nurse Type: Care Mgt Progress Note Filed: 09/06/2017 2:24 PM Note Text: CARE MANAGEMENT DISCHARGE NOTE SERVICE DATE: 09/06/2017 SERVICE TIME: 2:16 PM LOS: 12 days Admission Date: 08/25/2017 DISCHARGE ARRANGEMENT (list agency and phone number) Home, Home care and Home care pharmacy Provider: Apolinar [facility]/Specialty Infusion Services - Servicing [place], [place] and Surrounding Areas [facility] will provide nursing. P: [phone]. F: [phone] CAREGIVER ASSESSMENT: Caregiver is ready, willing and [...] Dapto Q24 hrs, has received today's dose. [facility] 09/07/2017 am, Apolinar will deliver IV abx to home tonight. [...] CASE MANAGEM Observed: 09/06/2017 Status: COMPLETED Source: [place] 1:55 PM [facility] REPOSITORY HNO ID: [id number] Author: Renetta Villanueva Service: Care Management Author Type: (none) Type: Care Mgt Progress Note Filed: 09/06/2017 1:55 PM Note Text: CARE MANAGEMENT PROGRESS NOTE SERVICE DATE: 09/06/2017 SERVICE TIME: 1:54 PM LOS: 12 days IM letter given to patient on 09/06/17. SIGNATURE: Kael Banksrical Assistant PATIENT NAME: Paloma Cannon DATE: September 06, 2017 TIME: 1:55 PM PAGER/CONTACT #: [phone] PLAN OF CARE Observed: 09/06/2017 Status: COMPLETED Source: [place] 1:46 PM [facility] REPOSITORY HNO ID: [id number] Author: Geraldine Lazar (Connectbeam) Service: (none) Author Type: (none) Type: Plan of Care Filed: 09/06/2017 1:47 PM Note Text: Pharmacy Discharge Medication Service: This patient has elected to receive their discharge prescriptions through the [facility] Bedside Prescription Delivery program. The prescriptions are currently being processed. A follow-up note will be entered once the prescriptions have been filled and delivered to the patient. Please contact me with any questions or updates to the patient's discharge medications. Geraldine Lazar (Connectbeam) DCT Contact Info: [id number] PROGRESS Observed: 09/06/2017 Status: COMPLETED Source: [place] 12:38 PM [facility] REPOSITORY HNO ID: [id number] Author: Ignacio Novak Service: Hospital Medicine Author Type: Physician Type: Progress Notes Filed: 09/06/2017 2:06 PM Note Text: Medicine [place] - [place] Progress Note PATIENT NAME: [...] ? Emelia Liu MD PGY-1 Internal Medicine [id number] September 06, 2017 12:39 PM [facility] STAFF PHYSICIAN NOTE OF PERSONAL [...] as outpatient. SIGNATURE: Ignacio Novak MD PAGER: [phone] DATE of SERVICE: September 06, 2017 TIME of SERVICE: 2:05 PM CONSULT PROG Observed: 09/06/2017 Status: COMPLETED Source: [place] 11:07 AM [facility] REPOSITORY O ID: [id number] Author: Paulette Gooden (Elliott) Davonte Service: Vascular [...] mg daily check INR on Monday at [facility] w/results faxed to [facility] (they have a standing order) Monday will get another INR and CBC to monitor platelet counts SIGNATURE: Paulette Naranjo CNP PATIENT NAME: Paloma Cannon DATE: September 06, 2017 TIME: 11:08 AM PAGER/CONTACT #: [phone] . PROCEDURE Observed: 09/06/2017 Status: COMPLETED Source: [place] 9:47 AM [facility] REPOSITORY HNO ID: [id number] Author: Lisseth Claudio MD Service: Apheresis Author [...] Completed by Apheresis Nurse: Lou Juarez RN [facility] STAFF PHYSICIAN NOTE OF PERSONAL INVOLVEMENT [...] MD September 06, 2017 2:08 PM Pager: [phone] NURSING PROG Observed: 09/06/2017 Status: COMPLETED Source: [place] 7:43 AM [facility] REPOSITORY HNO ID: [id number] Author: Denise (Rn) Timo Huffman RN Service: (none) Author Type: Registered Nurse Type: Nursing Progress Note Filed: 09/06/2017 2:25 PM Note Text: Nursing Progress Note Topic of Note: Daily Note Paloma Quisper [id number] Patient sleeping in bed. Patient to have, [...] RN PROTIME Collected: 09/06/2017 Status: F Source: [place] 5:40 AM [facility] REPOSITORY TYPE CODE TESTS RESULT OUT OF RANGE REFERENCE UNITS LAB PSEC 9.7-13.0 sec High PT Sec 13.9 LAB INR 0.9-1.3 High PT INR 1.4 Result Comment: Vitamin K Antagonist (VKA) Therapeutic Range: INR 2 to 3 (Target INR of 2.5) Note: For patients treated with VKA drugs, such as warfarin, the [employer] 2012 Guideline recommends [...] Chest 2012, 141:7S-47S Diogenes RESENDIZ et al. [facility] 2017, 70: 252-289 Performed By: #### PT, PTT, CK, CRET1, CBCDIF #### [facility] [address] [place] [id number] APTT Collected: 09/06/2017 Status: F Source: [place] 5:40 AM [facility] REPOSITORY TYPE CODE TESTS RESULT OUT [...] #### PT, PTT, CK, CRET1, CBCDIF #### [facility] [address] [place], [place] [address] CK Collected: 09/06/2017 Status: F Source: [facility] 5:40 AM MAIN CAMPUS REPOSITORY TYPE CODE TESTS RESULT OUT OF RANGE REFERENCE UNITS LAB CK 42-196 U/L Low CK 15 Result Comment: Please note the updated, gender-specific reference range for this test (effective 06/23/2016). Performed By: #### PT, PTT, CK, CRET1, CBCDIF #### [facility] [address], [place] [id number] CREATININE Collected: 09/06/2017 Status: F Source: [place] 5:40 AM [facility] REPOSITORY TYPE CODE TESTS RESULT OUT [...] #### PT, PTT, CK, CRET1, CBCDIF #### [facility] [address], [place] [id number] CBC AND DIFFERENTIAL Collected: 09/06/2017 Status: F Source: [place] 5:40 AM [facility] REPOSITORY TYPE CODE TESTS RESULT OUT [...] Abs 0.35 Low Lymph LAB AMONO % Owen% 8.9 LAB AAMONO <0.87 k/uL Abs 0.18 Owen LAB AEOS % 5.4 Eosin% LAB AAEOS <0.46 k/uL Abs 0.11 Eosin LAB ABASO % Baso% 1.5 LAB AABASO <0.11 k/uL Abs 0.03 Baso LAB AUNRBC 0 /100 WBC NRBCs 0.0 LAB ABNRBC <0.01 k/uL <0.01 Absolute nRBC LAB DTYP DTYPE Auto Diff Performed By: #### PT, PTT, CK, CRET1, CBCDIF #### [facility] [address] [place] [place] [address] PROGRESS Observed: 09/05/2017 Status: COMPLETED Source: [place] 11:05 [facility] [place] REPOSITORY HNO ID: [id number] Author: Ignacio Novak Service: Hospital Medicine Author Type: Physician Type: Progress Notes Filed: 09/05/2017 12:26 PM Note Text: [facility] [place] [facility] [place] Progress Note PATIENT NAME: [...] ? Emelia Liu MD PGY-1 Internal Medicine [id number] September 05, 2017 11:05 AM [facility] STAFF PHYSICIAN NOTE OF PERSONAL INVOLVEMENT [...] placement. ? SIGNATURE: Ignacio Novak MD PAGER: [phone] DATE of SERVICE: September 05, 2017 TIME of SERVICE: 12:25 PM THERAPY NT Observed: 09/05/2017 Status: COMPLETED Source: [place] 10:25 AM [facility] REPOSITORY HNO ID: [id number] Author: Alondra Campa Service: Physical Therapy Author Type: Physical Therapist Type: Therapy (PT/OT/Speech/Resp) Filed: 09/05/2017 10:26 AM Note Text: PHYSICAL THERAPY MISSED VISIT SERVICE DATE: 09/05/2017 SERVICE TIME: 1024 to 1024 ROOM: [place] [address] Attempted Evaluation. Patient not seen due to pt evaluated on 08/30 by PT and 09/02 by OT. Per RN and CM pt is still IND and still has no skilled therapy needs. PT discontinuing services at this time. SIGNATURE: Alondra Campa PT PATIENT NAME: Paloma Cannon DATE: September 05, 2017 TIME: 10:25 AM PAGER/CONTACT #: [phone] BRIEF OP NOT Observed: 09/05/2017 Status: COMPLETED Source: [place] 9:16 AM [facility] REPOSITORY HNO ID: [id number] Author: Cara De Leon Service: Interventional Radiology Author Type: Resident Type: Brief Op Note Filed: 09/05/2017 9:19 AM Note Text: BRIEF OPERATIVE / PROCEDURE NOTE LOG ID: [id number] Surgery/Procedure Date: 09/05/2017 Incision/Procedure Start Time: 8:29 AM Incision Close/Procedure End Time: 9:10 AM Surgeon(s)/Proceduralist(s) and Reprint Sorter(s): Surgeon(s) and Role: * Adis Munoz - [...] 05, 2017 TIME: 9:16 AM PAGER/CONTACT #: [phone] IR CENTRAL CATH Observed: 09/05/2017 Status: F Source: [place] PLACEMENT 9:10 AM [facility] REPOSITORY * * *Final Report* * * DATE OF EXAM: Sep 05 2017 9:10AM [facility] 8020 - IR CENTRAL CATH PLACEMENT / PROCEDURE REASON: APS (antiphospholipid syndrome) (HCC) * * * * Physician Interpretation * * * * PROCEDURE: Tunneled central venous catheter placement and pheresis catheter placement. Procedural Personnel Attending(s): Adis Munoz M.D. Reprint Sorter(s): Fellow(s): None Resident(s): Cara De Leon MD [...] purse string suture Sterile dressing(s) applied. The [facility] Central Line Insertion checklist, attached to [...] performed by the attending radiologist, with an bankruptcy assistant. The attending radiologist performed the following [...] JUNCTION. THE CATHETERS MAY BE USED IMMEDIATELY. Dopeman: MURTAZA Transcribe Date/Time: Sep 05 2017 9:42A Dictated by : ADIS MUNOZ MD This examination was interpreted and the report reviewed and electronically signed by: ADIS MUNOZ MD on Sep 05 2017 9:46AM EST [id number] IR DIALYSIS CATH Observed: 09/05/2017 Status: F Source: [place] PLACEMENT 9:10 AM [facility] REPOSITORY * * *Final Report* * * DATE OF EXAM: Sep 05 2017 9:10AM [facility] 8021 - IR DIALYSIS CATH PLACEMENT / PROCEDURE REASON: APS (antiphospholipid syndrome) ([facility]) * * * * Physician Interpretation * * * * PROCEDURE: Tunneled central venous catheter placement and pheresis catheter placement. Procedural Personnel Attending(s): Adis Munoz M.D. Reprint Sorter(s): Fellow(s): None Resident(s): Cara De Leon MD [...] purse string suture Sterile dressing(s) applied. The [facility] Central Line Insertion checklist, attached to [...] performed by the attending radiologist, with an bankruptcy assistant. The attending radiologist performed the following [...] JUNCTION. THE CATHETERS MAY BE USED IMMEDIATELY. [facility] Transcribe Date/Time: Sep 05 2017 9:42A Dictated by : ADIS MUNOZ MD This examination was interpreted and the report reviewed and electronically signed by: ADIS MUNOZ MD on Sep 05 2017 9:46AM EST [id number] PT ED Observed: 09/05/2017 Status: COMPLETED Source: [place] 8:09 AM [facility] REPOSITORY HNO ID: [id number] Author: Haydee (Rn) JEFF Domingo Service: Nursing Author Type: Registered Nurse Type: [...] Signed By: Haydee Domingo RN In Department: [facility] G081 NURSING PROG Observed: 09/05/2017 Status: COMPLETED Source: [place] 8:03 AM [facility] REPOSITORY HNO ID: [id number] Author: Denise (Rn) Timo Huffman RN Service: (none) Author Type: Registered Nurse Type: Nursing Progress Note Filed: 09/05/2017 6:43 PM Note Text: Nursing Progress Note Topic of Note: Daily Note Paloma Cannon [id number] Patient off the floor in IR for [...] RN PROTIME Collected: 09/05/2017 Status: F Source: [place] 4:39 AM [facility] REPOSITORY TYPE CODE TESTS RESULT OUT OF RANGE REFERENCE UNITS LAB PSEC 9.7-13.0 sec High PT Sec 13.5 LAB INR 0.9-1.3 PT INR 1.3 Result Comment: Vitamin K Antagonist (VKA) Therapeutic Range: INR 2 to 3 (Target INR of 2.5) Note: For patients treated with VKA drugs, such as warfarin, the [employer] 2012 Guideline recommends [...] Chest 2012, 141:7S-47S Diogenes RA, et al. [facility] 2017, 70: 252-289 Performed By: #### PT, PTT, CRET1, MG1, PHOS, CBCDIF #### [facility] [address] [place], [place] [address] APTT Collected: 09/05/2017 Status: F Source: [place] 4:39 AM [facility] REPOSITORY TYPE CODE TESTS RESULT OUT [...] PT, PTT, CRET1, MG1, PHOS, CBCDIF #### [facility] [address] [place], [place] [address] CREATININE Collected: 09/05/2017 Status: F Source: [place] 4:39 [facility] REPOSITORY TYPE CODE TESTS RESULT OUT [...] PT, PTT, CRET1, MG1, PHOS, CBCDIF #### [facility] [address] [place] [address] MAGNESIUM Collected: 09/05/2017 Status: F Source: [place] 4:39 AM [facility] REPOSITORY TYPE CODE TESTS RESULT OUT OF REFERENCE UNITS RANGE LAB MG 1.7-2.3 mg/dL Low Magnesium 1.6 Performed By: #### PT, PTT, CRET1, MG1, PHOS, CBCDIF #### [place] [address] [place] [address] PHOSPHORUS Collected: 09/05/2017 Status: F Source: [place] 4:39 [facility] REPOSITORY TYPE CODE TESTS RESULT OUT OF REFERENCE UNITS RANGE LAB PHOS 2.7-4.8 mg/dL Phosphorus 3.5 Performed By: #### PT, PTT, CRET1, MG1, PHOS, CBCDIF #### [place] [address] CBC AND DIFFERENTIAL Collected: 09/05/2017 Status: F Source: [place] 4:39 [facility] REPOSITORY TYPE CODE TESTS RESULT OUT [...] Abs Lymph Low 0.31 LAB AMONO % Owen% 4.0 LAB AAMONO <0.87 k/uL Abs Owen 0.07 LAB AEOS % Eosin% 1.0 LAB [...] PT, PTT, CRET1, MG1, PHOS, CBCDIF #### [facility] [address] [place], [place] [address] NURSING PROG Observed: 09/04/2017 Status: COMPLETED Source: [place] 6:29 PM [facility] REPOSITORY HNO ID: [id number] Author: Denise (Rn) Timo Huffman RN Service: (none) Author Type: Registered Nurse Type: Nursing Progress Note Filed: 09/04/2017 6:31 PM Note Text: Nursing Progress Note Topic of Note: Daily Note Paloma Quisper [id number] Patient to go to tomorrow for a samantha and tunneled dialysis catheter placement. No other issues noted at this time, will monitor. This note was completed by: Denise Huffman RN NUTRITION Observed: 09/04/2017 Status: COMPLETED Source: [place] 1:00 PM [facility] REPOSITORY HNO ID: [id number] Author: Anahi SanchezDiet-T) Sergei Service: Nutrition Therapy Author Type: Equity Research Analyst Type: Nutrition Filed: 09/04/2017 1:03 PM Note [...] September 04, 2017 TIME: 1:00 PM PAGER: [phone] PLAN OF CARE Observed: 09/04/2017 Status: COMPLETED Source: [place] 11:34 AM [facility] REPOSITORY HNO ID: [id number] Author: Veronica Ryan Service: General Internal Medicine [...] PGY-3 PROGRESS Observed: 09/04/2017 Status: COMPLETED Source: [place] 11:33 AM [facility] REPOSITORY HNO ID: [id number] Author: Ignacio Novak Service: Hospital Medicine Author Type: Physician Type: Progress Notes Filed: 09/04/2017 11:58 AM Note Text: Medicine [place] - [place] Progress Note PATIENT NAME: [...] vancomycin - CAPRICE Culture from Samantha and Johnyn catheter - Both catheters removed Plan: 1. [...] ? Emelia Liu MD PGY-1 Internal Medicine [id number] September 04, 2017 11:34 AM [facility] STAFF PHYSICIAN NOTE OF PERSONAL INVOLVEMENT [...] line placement. SIGNATURE: Ignacio Novak MD PAGER: [phone] DATE of SERVICE: September 04, 2017 TIME of SERVICE: 11:55 AM CONSULT PROG Observed: 09/04/2017 Status: COMPLETED Source: [place] 11:29 AM [facility] REPOSITORY O ID: [id number] Author: Dominique Wright Service: Infectious Disease Author [...] CONSULT PROG Observed: 09/04/2017 Status: COMPLETED Source: [place] 11:23 AM [facility] REPOSITORY HNO ID: [id number] Author: Paulette Naranjo Service: Vascular Medicine Author [...] 04, 2017 TIME: 11:23 AM PAGER/CONTACT #: [phone] . CASE MANAGEM Observed: 09/04/2017 Status: COMPLETED Source: [place] 11:21 AM [facility] REPOSITORY HNO ID: [id number] Author: Hailey Cunningham Service: Care Management Author Type: Java Architect Type: Care Mgt Progress Note Filed: 09/04/2017 11:22 AM Note Text: CARE MANAGEMENT PROGRESS NOTE SERVICE DATE: 09/04/2017 SERVICE TIME:11:11 LOS: 10 days IM letter given to patient on 09/04/2017. SIGNATURE: Hailey Cunningham, PATIENT NAME: Paloma Cannon DATE: September 04, 2017 TIME: 11:21 AM PAGER/CONTACT #: [phone] NURSING PROG Observed: 09/04/2017 Status: COMPLETED Source: [place] 7:12 AM [facility] REPOSITORY HNO ID: [id number] Author: Sanchez (Rn) JEFF Walker Service: (none) Author Type: Registered Nurse Type: Nursing Progress Note Filed: 09/04/2017 7:15 AM Note Text: Nursing Progress Note Patient Name: Paloma Cannon Patient Location: G081 [id number]/[id number] Pt left arm cleaned per protocol, Ultrasound [...] RN PROTIME Collected: 09/04/2017 Status: F Source: [place] 4:22 AM [facility] [place] REPOSITORY TYPE CODE TESTS RESULT OUT OF RANGE REFERENCE UNITS LAB PSEC 9.7-13.0 sec High PT Sec 14.0 LAB INR 0.9-1.3 High PT INR 1.4 Result Comment: Vitamin K Antagonist (VKA) Therapeutic Range: INR 2 to 3 (Target INR of 2.5) Note: For patients treated with VKA drugs, such as warfarin, the [place] [employer] 2012 Guideline recommends [...] Chest 2012, 141:7S-47S Diogenes RESENDIZ et al. [facility] 2017, 70: 252-289 Performed By: #### PT, PTT, CBCDIF #### [facility] [address] [place] [id number] APTT Collected: 09/04/2017 Status: F Source: [place] 4:22 [facility] REPOSITORY TYPE CODE TESTS RESULT OUT [...] Performed By: #### PT, PTT, CBCDIF #### [facility] [address] [place], [place] [address] CBC AND DIFFERENTIAL Collected: 09/04/2017 Status: F Source: [place] 4:22 [facility] REPOSITORY TYPE CODE TESTS RESULT OUT [...] Abs 0.35 Low Lymph LAB AMONO % Owen% 10.2 LAB AAMONO <0.87 k/uL Abs 0.21 Owen LAB AEOS % 4.4 Eosin% LAB AAEOS <0.46 k/uL Abs 0.09 Eosin LAB ABASO % Baso% 1.5 LAB AABASO <0.11 k/uL Abs 0.03 Baso LAB AUNRBC 0 /100 WBC NRBCs 0.0 LAB ABNRBC <0.01 k/uL <0.01 Absolute nRBC LAB DTYP DTYPE Auto Diff Performed By: #### PT, PTT, CBCDIF #### [facility] [address] [place], [place] [address] HOSP Observed: 09/04/2017 Status: COMPLETED Source: [place] 12:00 AM [facility] REPOSITORY Patient Update (HSIDMN) PALOMA MARTINEZ ([id number]) 1990 F PTR Date Time Provider Department [...] Fully Assessed Reason for Visit: CoPat Start [6599] Prescriptions as of 09/04/2017 Sig: X CYCLOPHOSPHAMIDE [...] daily. FLUTICASONE 50 MCG/ACTUATION * Use 1 [place] in each nostril o* X WARFARIN 5 [...] [J18.9] INVALID FOR*01/11/2017 Respiratory failure with hypoxia ([facility]) [J96.91] INVALID FOR*01/11/2017 Priority: B More... SOB (shortness of breath) [R06.02] INVALID FOR*12/28/2016 HTN (hypertension) [I10] INVALID FOR* Priority: E More... ACPRICE (acute kidney injury) ([facility]) [N17.9] INVALID FOR* Priority: B More... [...] Encounter Status:Closed by DOMINIQUE WRIGHT MD on 09/04/17 PROGRESS Observed: 09/03/2017 Status: COMPLETED Source: [place] 11:43 AM [facility] REPOSITORY HNO ID: [id number] Author: Gael Simmons Service: General Internal Medicine Author Type: Physician Type: Progress Notes Filed: 09/03/2017 1:35 PM Note Text: [facility] [place] - [place] Progress Note PATIENT NAME: [...] Ryan MD Internal Medicine PGY-3 Pager: [phone] 11:45 AM 09/03/2017 [facility] STAFF PHYSICIAN NOTE OF PERSONAL INVOLVEMENT IN CARE I have reviewed the documentation obtained and documented by the team healthcare provider (fellow, resident, nurse practitioner or physician bankruptcy assistant) and I personally participated in the fernandes components. I have discussed the case and management of the patient's care and the note has been revised / addended to reflect my direct input. Continues to do well, 2.23 c/s NGTD x2 plt ct has stabilized Plan is for new exchange line next week Gael Simmons MD [facility] Medicine Staff PAGER: [phone] DATE of Service: 09/03/2017 TIME of Service: 1:35 PM PROTIME Collected: 09/03/2017 Status: F Source: [place] 5:50 AM [facility] [place] REPOSITORY TYPE CODE TESTS RESULT OUT OF RANGE REFERENCE UNITS LAB PSEC 9.7-13.0 sec High PT Sec 15.9 LAB INR 0.9-1.3 High PT INR 1.6 Result Comment: Vitamin K Antagonist (VKA) Therapeutic Range: INR 2 to 3 (Target INR of 2.5) Note: For patients treated with VKA drugs, such as warfarin, the [place] [employer] 2012 Guideline recommends [...] Chest 2012, 141:7S-47S Diogenes RA, et al. [facility] 2017, 70: 252-289 Performed By: #### PT, PTT, CBCDIF #### [facility] [address] [place], [place] [address] APTT Collected: 09/03/2017 Status: F Source: [place] 5:50 AM [facility] REPOSITORY TYPE CODE TESTS RESULT OUT [...] Performed By: #### PT, PTT, CBCDIF #### [facility] [address] [place], [place] [address] CBC AND DIFFERENTIAL Collected: 09/03/2017 Status: F Source: [place] 5:50 AM [facility] REPOSITORY TYPE CODE TESTS RESULT OUT [...] Abs Lymph Low 0.35 LAB AMONO % Owen% 5.0 LAB AAMONO <0.87 k/uL Abs Owen 0.09 LAB AEOS % Eosin% 3.0 LAB [...] Performed By: #### PT, PTT, CBCDIF #### [facility] [address] [place], [place] [address] NURSING PROG Observed: 09/02/2017 Status: COMPLETED Source: [place] 3:41 PM [facility] REPOSITORY HNO ID: [id number] Author: Shelia (Rn) JEFF Oviedo Service: (none) Author Type: Registered Nurse Type: Nursing Progress Note Filed: 09/02/2017 3:42 PM Note Text: Nursing Progress Note Patient Name: Paloma Cannon Patient Location: [place] [id number] Daily Note: 1540- Patient resting in bed, call light in reach. This note was completed by: Shelia Oviedo RN THERAPY NT Observed: 09/02/2017 Status: COMPLETED Source: [place] 10:38 AM [facility] REPOSITORY HNO ID: [id number] Author: Mitch (Otr/LDevonte Wallis Service: Occupational Therapy Author Type: Occupational Therapist Type: Therapy (PT/OT/Speech/Resp) Filed: 09/02/2017 10:41 AM Note Text: Occupational Therapy Evaluation SERVICE DATE: 09/02/2017 SERVICE TIME: 1000 to 1030 ROOM: [place] [address] Recommended Discharge Disposition: Home Recommended Discharge Disposition [...] No Skilled Need Interventions Provided: Evaluation;Therapeutic Exercise (21801) $ Evaluation-Low (77206) Billed Units: 1 unit Therapeutic Exercise (51494) Treatment Minutes: 15 1 unit Skilled Intervention(s): Instruction in therapeutic exercise Alec UE AROM all planes instruction Verbal and [...] Patient Lives With: Significant Other Assistance Available: PRN;multimedia educational specialist Entry To Home: No Stairs Number Of [...] September 02, 2017 TIME: 10:38 AM PAGER: [phone] PROGRESS Observed: 09/02/2017 Status: COMPLETED Source: [place] 10:20 AM [facility] [place] REPOSITORY O ID: [id number] Author: Gael Simmons Service: Hospital Medicine Author Type: Physician Type: Progress Notes Filed: 09/02/2017 10:45 AM Note Text: Medicine [place] - [place] Progress Note PATIENT NAME: [...] 3 line cultures positive for MRSE (08/11 x2 and 07/11 x2/) Needs coverage for MRSE [...] staff, Dr Simmons SIGNATURE: [place] [id number] DATE of SERVICE: September 02, 2017 TIME of SERVICE: 10:20 AM [facility] STAFF PHYSICIAN NOTE OF PERSONAL INVOLVEMENT IN CARE I have reviewed the documentation obtained and documented by the team healthcare provider (fellow, resident, nurse practitioner or physician bankruptcy assistant) and I personally participated in the fernandes components. I have discussed the case and management of the patient's care and the note has been revised / addended to reflect my direct input. Clinically improving. No loose stools past 24 hours, joint pain controlled. Plan remains the same. Gael Simmons MD [facility] Medicine Staff PAGER: [phone] DATE of Service: 09/02/2017 TIME of Service: 10:45 AM PROTIME Collected: 09/02/2017 Status: F Source: [place] 5:15 AM [facility] REPOSITORY TYPE CODE TESTS RESULT OUT OF RANGE REFERENCE UNITS LAB PSEC 9.7-13.0 sec High PT Sec 17.2 LAB INR 0.9-1.3 High PT INR 1.7 Result Comment: Vitamin K Antagonist (VKA) Therapeutic Range: INR 2 to 3 (Target INR of 2.5) Note: For patients treated with VKA drugs, such as warfarin, the [place] [employer] 2012 Guideline recommends [...] Chest 2012, 141:7S-47S Diogenes RA, et al. JACC 2017, 70: 252-289 Performed By: #### PT, PTT, MG1, PHOS, CBCDIF #### [facility] [address] [place], [place] [address] APTT Collected: 09/02/2017 Status: F Source: [place] 5:15 AM [facility] REPOSITORY TYPE CODE TESTS RESULT OUT [...] #### PT, PTT, MG1, PHOS, CBCDIF #### [place] [address] MAGNESIUM Collected: 09/02/2017 Status: F Source: [place] 5:15 AM [facility] REPOSITORY TYPE CODE TESTS RESULT OUT OF REFERENCE UNITS RANGE LAB MG 1.7-2.3 mg/dL Magnesium 1.9 Performed By: #### PT, PTT, MG1, PHOS, CBCDIF #### [place] [address] PHOSPHORUS Collected: 09/02/2017 Status: F Source: [place] 5:15 AM [facility] REPOSITORY TYPE CODE TESTS RESULT OUT OF REFERENCE UNITS RANGE LAB PHOS 2.7-4.8 mg/dL Phosphorus 3.5 Performed By: #### PT, PTT, MG1, PHOS, CBCDIF #### [place] [address] CBC AND DIFFERENTIAL Collected: 09/02/2017 Status: F Source: [place] 5:15 AM [facility] REPOSITORY TYPE CODE TESTS RESULT OUT [...] Abs Lymph Low 0.11 LAB AMONO % Owen% 3.8 LAB AAMONO <0.87 k/uL Abs Owen 0.06 LAB AEOS % Eosin% 3.3 LAB [...] #### PT, PTT, MG1, PHOS, CBCDIF #### [facility] [address] [place], [place] [address] CONSULT PROG Observed: 09/01/2017 Status: COMPLETED Source: [place] 1:26 PM [facility] REPOSITORY HNO ID: [id number] Author: Dominique Wright Service: Infectious Disease Author [...] p.m. PROGRESS Observed: 09/01/2017 Status: COMPLETED Source: [place] 11:15 AM [facility] REPOSITORY O ID: [id number] Author: Gael Simmons Service: Hospital Medicine Author Type: Physician Type: Progress Notes Filed: 09/01/2017 11:59 AM Note Text: Medicine [place] - [place] [facility] Progress Note PATIENT NAME: [...] cultures positive for MRSE (08/11 x2/16 and 07/11 x2/17) Needs coverage for MRSE Prior adverse [...] staff, Dr Simmons SIGNATURE: [place] [id number] DATE of SERVICE: September 01, 2017 TIME of SERVICE: 11:19 AM [facility] STAFF PHYSICIAN NOTE OF PERSONAL INVOLVEMENT IN CARE I have reviewed the documentation obtained and documented by the team healthcare provider (fellow, resident, nurse practitioner or physician bankruptcy assistant) and I personally participated in the fernandes components. I have discussed the case and management of the patient's care and the note has been revised / addended to reflect my direct input. Jesus Alberto catheter out and she feels better Counts continue to fall Cont current abx ? New TAC early next week Gael Simmons MD [facility] Medicine Staff PAGER: [phone] DATE of Service: 09/01/2017 TIME of Service: 11:58 AM CASE MANAGEM Observed: 09/01/2017 Status: COMPLETED Source: [place] 9:10 AM [facility] REPOSITORY HNO ID: [id number] Author: Dary (Rn) JEFF Jimenes Service: Care [...] DC. TCC/SW to follow For W/E CM p#[phone] SIGNATURE: Dary Jimenes RN PATIENT NAME: Paloma Cannon DATE: September 01, 2017 TIME: 9:10 AM PAGER/CONTACT #: [phone] Observed: 09/01/2017 Status: F Source: [place] BLOOD CULTURE 8:01 AM [facility] REPOSITORY Culture Result - No growth 5 days Performed By: #### BLCUL #### [facility] [address] [place], [place] [address] Observed: 09/01/2017 Status: F Source: [place] BLOOD CULTURE 7:49 AM [facility] REPOSITORY Culture Result - No growth 5 days Performed By: #### BLCUL #### [facility] [address] [place], [place] [address] PROTIME Collected: 09/01/2017 Status: F Source: [place] 5:15 AM [facility] REPOSITORY TYPE CODE TESTS RESULT OUT OF RANGE REFERENCE UNITS LAB PSEC 9.7-13.0 sec High PT Sec 17.5 LAB INR 0.9-1.3 High PT INR 1.8 Result Comment: Vitamin K Antagonist (VKA) Therapeutic Range: INR 2 to 3 (Target INR of 2.5) Note: For patients treated with VKA drugs, such as warfarin, the [place] [employer]icians 2012 Guideline recommends [...] Chest 2012, 141:7S-47S Diogenes RESENDIZ et al. [facility] 2017, 70: 252-289 Performed By: #### PT, PTT, CBCDIF #### [facility] [address] [place], [place] [address] APTT Collected: 09/01/2017 Status: F Source: [place] 5:15 AM [facility] REPOSITORY TYPE CODE TESTS RESULT OUT [...] Performed By: #### PT, PTT, CBCDIF #### [facility] [address] [place], [place] [id number] CBC AND DIFFERENTIAL Collected: 09/01/2017 Status: F Source: [place] 5:15 AM [facility] REPOSITORY TYPE CODE TESTS RESULT OUT [...] Abs Lymph Low 0.08 LAB AMONO % Owen% 13.0 LAB AAMONO <0.87 k/uL Abs Owen 0.19 LAB AEOS % Eosin% 6.1 LAB AAEOS <0.46 k/uL Abs Eosin 0.09 LAB ABASO % Baso% 2.6 LAB AABASO <0.11 k/uL Abs Baso 0.04 LAB AMETA % Line [place]% 0.4 LAB ANIIMI Anisocytosis Present LAB OVAIMI Ovalocytes Few LAB POLIMI Polychromasia Slight LAB RCFIMI RBC Fragments Few LAB PLTEST Platelet Estimate Platelet estimate decreased LAB DTYP DTYPE Manual Diff Performed By: #### PT, PTT, CBCDIF #### [facility] [address] [place], [place] [address] BRIEF OP NOT Observed: 08/31/2017 Status: COMPLETED Source: [place] 7:42 PM [facility] REPOSITORY HNO ID: [id number] Author: Nicholas Gee III Service: Radiology Author [...] patient was brought to room 25, IR. [place] protocol performed. Subsequently, Removal of an indwelling [...] 31, 2017 TIME: 7:42 PM PAGER/CONTACT #: [phone] IR CENTRAL LINE Observed: 08/31/2017 Status: F Source: BASS REMOVAL 7:16 PM [facility] REPOSITORY * * *Final Report* * * DATE OF EXAM: Aug 31 2017 7:16PM [facility] 0746 - IR CENTRAL LINE REMOVAL / [...] Microbiology ATTENDING RADIOLOGIST: Nicholas Gee III, M.D. MOLD DESIGNER: None The procedure was performed by the: attending radiologist, without an bankruptcy assistant. The attending radiologist performed the following procedural activities: Entire procedure IMPRESSION: SUCCESSFUL REMOVAL OF TUNNELED CENTRAL VENOUS CATHETER. Dopeman: PSCB Transcribe Date/Time: Sep 06 2017 12:59A Dictated by : NICHOLAS GEE III, MD This examination was interpreted and the report reviewed and electronically signed by: NICHOLAS GEE III, MD on Sep 06 2017 1:00AM EST Observed: 08/31/2017 Status: F Source: [place] CATH TIP CULTURE 7:00 PM [facility] REPOSITORY Sp. Request/Comment: - Specimen received in [...] ABNORMAL ALERT Performed By: #### CTCUL #### [facility] [address] [place], [place] [address] HISTORY PHYSICAL Observed: 08/31/2017 Status: COMPLETED Source: [place] 6:38 PM [facility] REPOSITORY HNO ID: [id number] Author: Nicholas Gee III Service: Radiology Author [...] August 31, 2017 TIME: 6:38 PM PAGER: [phone] PT ED Observed: 08/31/2017 Status: COMPLETED Source: [place] 6:37 PM [facility] REPOSITORY HNO ID: [id number] Author: Eugenia SanchezRn) JEFF Hart Service: Nursing Author Type: Registered Nurse Type: Patient Education Filed: 08/31/2017 6:40 PM Note Text: PATIENT EDUCATION TOPIC: PROCEDURE / SURGERY: Pre Procedure Teaching: Logistics Protocols Complication Prevention Surgical Safety Principles PATIENT NAME: Paloma Cannon PATIENT LOCATION: G081 [id number]/[id number] READINESS TO LEARN COGNITIVE ABILITY: Alert and [...] NURSING PROG Observed: 08/31/2017 Status: COMPLETED Source: [place] 1:00 PM [facility] REPOSITORY HNO ID: [id number] Author: Lourdes (Rn) JEFF Stallworth Service: (none) Author Type: Registered Nurse Type: Nursing Progress Note Filed: 08/31/2017 5:04 PM Note Text: Nursing Progress Note Patient Name: Paloma Cannon Patient Location: [place] [id number] Daily Note: 1230 report given to IR [...] CONSULT PROG Observed: 08/31/2017 Status: COMPLETED Source: [place] 12:50 PM [facility] REPOSITORY HNO ID: [id number] Author: Dominique Wright Service: Infectious Disease Author [...] p.m. PROGRESS Observed: 08/31/2017 Status: COMPLETED Source: [place] 12:45 PM [facility] REPOSITORY HNO ID: [id number] Author: Gael Simmons Service: Hospital Medicine Author Type: Physician Type: Progress Notes Filed: 08/31/2017 1:05 PM Note Text: Medicine [place] - [place] Progress Note PATIENT NAME: [...] positive for MRSE (08/11 x2/ and 07/11 x2) Needs coverage for MRSE Prior adverse [...] - Bival vs Fondaparinux - Consult to [facility] medicine ? Chronic Problems: 1. Anti-phospholipid Syndrome 2. Hypertension 3. HFpEF - f/u ECHO 4. Heparin-induced Thrombocytopenia 5. 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 GERD ? Other: Diet: Regular GI AND DVT Prophylaxis: warfarin PT/OT Disposition Recs: N/A Code Status: Full code ? Case to be discussed with staff, Dr Simmons SIGNATURE: [place] [id number] DATE of SERVICE: August 31, 2017 TIME of SERVICE: 12:46 PM [facility] STAFF PHYSICIAN NOTE OF PERSONAL INVOLVEMENT IN CARE I have reviewed the documentation obtained and documented by the team healthcare provider (fellow, resident, nurse practitioner or physician bankruptcy assistant) and I personally participated in the fernandes components. I have discussed the case and management of the patient's care and the note has been revised / addended to reflect my direct input. Jesus Alberto c/s positive, will need to be removed - we will schedule. Cont Dapto / Flagyl Appreciate [facility] med input, likely fondarinux SQ low dose for now. No further evidence of DAH Some joint pain she says occurred with BSI in the past Gael Simmons MD [facility] Medicine Staff PAGER: [phone] DATE of Service: 08/31/2017 TIME of Service: 1:03 PM CONSULT Observed: 08/31/2017 Status: COMPLETED Source: [place] 12:00 PM [facility] REPOSITORY HNO ID: [id number] Author: Darcie Choi MD Service: Vascular Medicine [...] (FLONASE) 50 mcg/actuation nasal spray Use 1 Oakwood in each nostril once daily. warfarin (COUMADIN) [...] twice daily as needed. Miscellaneous Medical [facility] package 30 - 40 mmHg pressure [...] 31, 2017 TIME: 12:01 PM PAGER/CONTACT #: [phone] . Staff addendum: I interviewed and examined Paloma Aiken Davis, and reviewed and confirmed the findings of the MARKLOGIC DEVELOPER with additional comments below. The assessment and plan was formulated in discussion with the patient and MARKLOGIC DEVELOPER, and is also outlined below. Pleasant 27yo F well known to our service due to hx of APS with hx of prior VTE, on assisted anticoagulation with warfarin, and additional complications related [...] Staff PROTIME Collected: 08/31/2017 Status: F Source: [place] 4:35 AM [facility] REPOSITORY TYPE CODE TESTS RESULT OUT OF RANGE REFERENCE UNITS LAB PSEC 9.7-13.0 sec High PT Sec 18.2 LAB INR 0.9-1.3 High PT INR 1.8 Result Comment: Vitamin K Antagonist (VKA) Therapeutic Range: INR 2 to 3 (Target INR of 2.5) Note: For patients treated with VKA drugs, such as warfarin, the [place] [employer] Chest [employer]icians 2012 Guideline recommends [...] 252-289 Performed By: #### PT, CBCDIF #### [facility] [address] [place], [place] [address] CBC AND DIFFERENTIAL Collected: 08/31/2017 Status: F Source: [place] 4:35 [facility] REPOSITORY TYPE CODE TESTS RESULT OUT [...] Abs Lymph 0.07 Low LAB AMONO % Owen% 4.3 LAB AAMONO <0.87 k/uL Abs Owen 0.08 LAB AEOS % Eosin% 5.6 LAB [...] Diff Performed By: #### PT, CBCDIF #### [facility] [address] [place], [place] [address] Observed: 08/30/2017 Status: F Source: [place] BLOOD CULTURE 4:57 PM [facility] REPOSITORY Sp. Request/Comment: - TAKEN FROM [place] Culture Result - Enterococcus faecalis Cephalosporins, clindamycin, and TMP-SMX are not effective for the treatment of enterococcal infections. --> ABNORMAL ALERT Refer to specimen collected on --&gt ; ABNORMAL ALERT 08/30/17 AT 1654 ([id number]) --> ABNORMAL ALERT Staphylococcus epidermidis --> ABNORMAL [...] 2 F Performed By: #### BLCUL #### [facility] [address] [place] [id number] Observed: 08/30/2017 Status: F Source: [place] BLOOD CULTURE 4:54 PM [facility] REPOSITORY Sp. Request/Comment: - FROM LEFT SIDED [...] also susceptible. Performed By: #### BLCUL #### [facility] [address] [place], [place] [address] IR CENTRAL LINE Observed: 08/30/2017 Status: F Source: BASS REMOVAL 2:26 PM [facility] REPOSITORY * * *Final Report* * * DATE OF EXAM: Aug 30 2017 2:26PM [facility] 0746 - IR CENTRAL LINE REMOVAL / [...] of Removed Specimens: 0: ATTENDING RADIOLOGIST: n/a MOLD DESIGNER: None The procedure was performed by the: Machelle Joshi PA-C IMPRESSION: SUCCESSFUL REMOVAL OF TUNNELED CENTRAL VENOUS CATHETER. Dopeman: MURTAZA Transcribe Date/Time: Aug 30 2017 4:50P Dictated by : MACHELLE JOSHI PA-C This examination was interpreted and the report reviewed and electronically signed by: MACHELLE JOSHI PA-C on Aug 30 2017 4:53PM EST NURSING PROG Observed: 08/30/2017 Status: COMPLETED Source: [place] 2:18 PM [facility] REPOSITORY HNO ID: [id number] Author: Lourdes (Jeff) JEFF Stallworth Service: (none) Author Type: Registered Nurse Type: Nursing Progress Note Filed: 08/30/2017 6:24 PM Note Text: Nursing Progress Note Patient Name: Paloma Cannon Patient Location: [place] [address] Daily Note: A blood culture ordered for pt, consulted TAMI Palmer, advised to call Hemoc assigned to pt- per in patient notes, no hemoc assigned. 1100 hrs - pt off floor to IR. Dr Alexa davis and notified that blood culture not done yet, needs an order for what to lock catheter. 1404 hrs - pt back in the room, no bleeding noted in post SAMANTHA site. 700 hrs blood culture from jesus alberto cath collected by apharesis nurse sent This note was completed by: Lourdes Stallworth RN BRIEF OP NOT Observed: 08/30/2017 Status: COMPLETED Source: [place] 1:48 PM [facility] REPOSITORY HNO ID: [id number] Author: Machelle Joshi Service: Radiology Author Type: Physician Reprint Sorter Type: Brief Op Note Filed: 08/30/2017 1:54 PM Note Text: BRIEF OP NOTE LOG ID: [id number] Surgery/Procedure Date: 08/30/2017 Incision/Procedure Start Time: 1325 Incision Close/Procedure End Time: 1335 Surgeon(s)/Proceduralist(s) and Reprint Sorter(s): Machelle Joshi PA-C Procedure(s): Removal of samantha [...] SIGNATURE: Machelle Joshi PA-C PATIENT NAME: Paloma Quisper DATE: August 30, 2017 TIME: 1:48 PM PAGER/CONTACT #: [phone] PT ED Observed: 08/30/2017 Status: COMPLETED Source: [place] 1:46 PM [facility] [place] REPOSITORY O ID: [id number] Author: Daysi Grullon (Pharmacist) Service: Pharmacy Author Type: Pharmacist Type: Patient Education Filed: 08/30/2017 1:48 PM Note Text: PHARMACY WARFARIN EDUCATION Patient Name: Paloma Aiken Davis Account #: Data Unavailable Admission Date: 08/25/2017 5:15 PM Date of Contact: August 30, 2017 Time of Contact: 1:46 PM Patient new to warfarin? No: Previous (home) dosage: warfarin 7.5 mg Sat and Sun; 5 mg Mon,Tues, Wed, Thurs, Fri Outpatient follow-up plan: Follow-up with Physician: name: Dr. Guillaume Fuller' office ([facility] physician) with his MARKLOGIC DEVELOPER Magdalena Indication for warfarin: deep vein thrombosis (DVT) Target INR range: 2.0 - 3.0 (Target 2.5) Patient received full warfarin education (Please see previously documented note on 08/27/17). DAYSI GRULLON, PHARMACIST [id number] HISTORY PHYSICAL Observed: 08/30/2017 Status: COMPLETED Source: [place] 1:17 PM [facility] REPOSITORY HNO ID: [id number] Author: Machelle Joshi Service: Radiology Author Type: Physician Reprint Sorter Type: HANDP Filed: 08/30/2017 1:18 PM Note [...] August 30, 2017 TIME: 1:17 PM PAGER: [phone] CONSULT PROG Observed: 08/30/2017 Status: COMPLETED Source: [place] 12:33 PM [facility] REPOSITORY HNO ID: [id number] Author: Dominique Wright Service: Infectious Disease Author [...] THERAPY NT Observed: 08/30/2017 Status: COMPLETED Source: [place] 12:22 PM [facility] REPOSITORY HNO ID: [id number] Author: Alondra (Pt) Lokesh Service: Physical Therapy Author Type: Physical Therapist Type: Therapy (PT/OT/Speech/Resp) Filed: 08/30/2017 12:26 PM Note Text: Physical Therapy Evaluation SERVICE DATE: 08/30/2017 SERVICE TIME: 1151 to 1215 ROOM: [place] [address] Recommended Discharge Disposition: Home Recommended Discharge Equipment: [...] No Skilled Need Interventions Provided: Evaluation;Gait Training (24040) $ Evaluation-Low (60041) Billed Units: 1 unit Gait Training (57351) Treatment Minutes: 8 1 unit Skilled Intervention(s): [...] Patient Lives With: Significant Other Assistance Available: PRN;multimedia educational specialist Entry To Home: No Stairs Number Of [...] for this therapy evaluation/treatment. SIGNATURE: Alondra Campa RASHARD PATIENT NAME: Paloma Cannon DATE: August 30, 2017 TIME: 12:22 PM PAGER/CONTACT #: [phone] PROGRESS Observed: 08/30/2017 Status: COMPLETED Source: [place] 12:16 PM [facility] REPOSITORY HNO ID: [id number] Author: Gael Simmons Service: Hospital Medicine Author Type: Physician Type: Progress Notes Filed: 08/30/2017 2:21 PM Note Text: [facility] [place] - [place] Progress Note PATIENT NAME: [...] Coags, BMP, Mg, Phos Recent Labs 08/30/17 03208/29/17 0616 08/29/17 0407 08/28/17 0428 WBC 1.34* [...] currently afebrile and hemodynamically stable BCX from 2 NG x 24 hrs Plan: - Quiñonez [...] staff, Dr Simmons SIGNATURE: [place] [id number] DATE of SERVICE: August 30, 2017 TIME of SERVICE: 12:16 PM [facility] STAFF PHYSICIAN NOTE OF PERSONAL INVOLVEMENT IN CARE I have reviewed the documentation obtained and documented by the team healthcare provider (fellow, resident, nurse practitioner or physician bankruptcy assistant) and I personally participated in the fernandes components. I have discussed the case and management of the patient's care and the note has been revised / addended to reflect my direct input. Samantha now out. Diarrhea resolving Need c/s from [place] Appreciate ID help Hemoptysis has resolved as well Gael Simmons MD [facility] Medicine Staff PAGER: [phone] DATE of Service: 08/30/2017 TIME of Service: 2:20 PM NUTRITION Observed: 08/30/2017 Status: COMPLETED Source: [place] 10:34 AM [facility] REPOSITORY HNO ID: [id number] Author: Elsa Susan Marcellus Service: Nutrition Therapy Author Type: Registered Dietitian [...] Type: Re-assess/15 min 2 units SIGNATURE: Elsa Susan Germain, MS RDN-AP LD [facility] PATIENT NAME: Paloma Aiken Davis DATE: August 30, 2017 TIME: 10:34 AM PAGER: [phone] PROTIME Collected: 08/30/2017 Status: F Source: [place] 3:23 AM [facility] REPOSITORY TYPE CODE TESTS RESULT OUT OF RANGE REFERENCE UNITS LAB PSEC 9.7-13.0 sec High PT Sec 22.4 LAB INR 0.9-1.3 High PT INR 2.3 Result Comment: Vitamin K Antagonist (VKA) Therapeutic Range: INR 2 to 3 (Target INR of 2.5) Note: For patients treated with VKA drugs, such as warfarin, the [place] [employer] Physicians 2012 Guideline recommends [...] Chest 2012, 141:7S-47S Diogenes RA, et al. [facility] 2017, 70: 252-289 Performed By: #### PT, CK, CMP, MG1, PHOS, CBCDIF #### [facility] [address] [place], [place] [address] CK Collected: 08/30/2017 Status: F Source: [facility] 3:23 AM MAIN [place] REPOSITORY TYPE CODE TESTS RESULT OUT OF RANGE REFERENCE UNITS LAB CK 42-196 U/L Low CK <7 Result Comment: Result rechecked. Performed By: #### PT, CK, CMP, MG1, PHOS, CBCDIF #### [facility] [address] [place], [place] [address] COMP METABOLIC PANEL Collected: 08/30/2017 Status: F Source: [place] 3:23 AM [facility] [place] REPOSITORY TYPE CODE TESTS RESULT OUT OF [...] mg/dL Low Glucose 70 Result Comment: The [place] [employer] (ADA) provides guidance for cutoff [...] Standards of Medical Care in Diabetes 2016, [place] [employer]. Diabetes Care. 2016.39(Suppl 1). LAB [...] PT, CK, CMP, MG1, PHOS, CBCDIF #### [facility] [address] [place], [place] [address] MAGNESIUM Collected: 08/30/2017 Status: F Source: [place] 3:23 AM [facility] REPOSITORY TYPE CODE TESTS RESULT OUT OF REFERENCE UNITS RANGE LAB MG 1.7-2.3 mg/dL Magnesium 2.0 Performed By: #### PT, CK, CMP, MG1, PHOS, CBCDIF #### [facility] [address] [place], [place] [id number] PHOSPHORUS Collected: 08/30/2017 Status: F Source: [place] 3:23 AM [facility] REPOSITORY TYPE CODE TESTS RESULT OUT OF REFERENCE UNITS RANGE LAB PHOS 2.7-4.8 mg/dL Low Phosphorus 2.5 Performed By: #### PT, CK, CMP, MG1, PHOS, CBCDIF #### [facility] [address] [place], [place] [address] CBC AND DIFFERENTIAL Collected: 08/30/2017 Status: F Source: [place] 3:23 AM [facility] REPOSITORY TYPE CODE TESTS RESULT [...] Abs Lymph Low 0.12 LAB AMONO % Owen% 5.8 LAB AAMONO <0.87 k/uL Abs Owen 0.08 LAB AEOS % Eosin% 6.2 LAB [...] PT, CK, CMP, MG1, PHOS, CBCDIF #### [facility] [address] [place], [place] [address] CNDS Observed: 08/29/2017 Status: COMPLETED Source: [place] 4:25 PM [facility] [place] REPOSITORY HNO ID: [id number] Author: Ignacio Novak Service: General Internal Medicine [...] found to be positive for lupus anticoagulant, [id number], and anti-cardiolipin antibodies for which she gets [...] on 09/06/17 prior to discharge that day. 1) MRSE [...] on 09/08/2017. Will be followed up by [facility] med SALES DEVELOPMENT CONSULTANT. 6) HFpEF Med list included: hydralazine, carvedilol, [...] (FLONASE) 50 mcg/actuation nasal spray Use 1 Oakwood in each nostril once daily. Historical Med [...] RCTMN RADIO (MAIN 09/11/2017 11:55 AM Guillaume Parambil PULMMN PULM A/E/R/G 09/18/2017 12:00 [address] [facility] [place] 09/19/2017 2:45 PM Dominique Wright INFDMN INFD (MAIN - 09/27/2017 12:30 PM [facility] [place] 10/02/2017 12:30 PM [facility] [place] 10/16/2017 12:30 PM [facility] [place] 10/30/2017 12:30 [address] [facility] [place] Veronica Ryan MD Internal Medicine PGY-3 Pager:v: [phone] 3:42 PM 09/06/2017 [facility] STAFF PHYSICIAN NOTE OF PERSONAL INVOLVEMENT [...] this patient SIGNATURE: Ignacio Novak MD PAGER: [phone] DATE of SERVICE: September 07, 2017 TIME of SERVICE: 1:33 PM Observed: 08/29/2017 Status: F Source: [place] BLOOD CULTURE 3:36 PM [facility] REPOSITORY Culture Result - No growth 5 days Performed By: #### BLCUL #### [facility] [address], [place] [address] CONSULT PROG Observed: 08/29/2017 Status: COMPLETED Source: [place] 12:16 PM [facility] REPOSITORY HNO ID: [id number] Author: Dominique Wright Service: Infectious Disease Author [...] Observed: 08/29/2017 Status: F Source: [facility] 11:39 AM [facility] REPOSITORY * * *Final Report* * * [...] silhouette: The cardiomediastinal silhouette is unchanged. Other: Dopeman: MURTAZA Transcribe Date/Time: Aug 29 2017 2:26P Dictated by : DANNY COSTA MD This examination was interpreted and the report reviewed and electronically signed by: DANNY COSTA MD on Aug 29 2017 2:26PM EST [id number] PROGRESS Observed: 08/29/2017 Status: COMPLETED Source: [place] 10:46 AM [facility] REPOSITORY HNO ID: [id number] Author: Gael Simmons Service: Hospital Medicine Author Type: Physician Type: Progress Notes Filed: 08/29/2017 12:47 PM Note Text: [facility] - [place] Progress Note PATIENT NAME: [...] staff, Dr Simmons SIGNATURE: [place] [id number] DATE of SERVICE: August 29, 2017 TIME of SERVICE: 10:48 AM [facility] STAFF PHYSICIAN NOTE OF PERSONAL INVOLVEMENT IN CARE I have reviewed the documentation obtained and documented by the team healthcare provider (fellow, resident, nurse practitioner or physician bankruptcy assistant) and I personally participated in the fernandes components. I have discussed the case and management of the patient's care and the note has been revised / addended to reflect my direct input. Cough with bloody tinged sputum today, concerning for DAH. CXR and monitor closely. MRSE from samantha, agree with ID will need to be removed. Appreciate ID support Gael Simmons MD FACP [facility] Medicine Staff PAGER: [phone] DATE of Service: 08/29/2017 TIME of Service: 12:46 PM CONSULT PROG Observed: 08/29/2017 Status: COMPLETED Source: [place] 7:55 AM [facility] REPOSITORY HNO ID: [id number] Author: Dominique Wright Service: Infectious Disease Author [...] NURSING PROG Observed: 08/29/2017 Status: COMPLETED Source: [place] 6:51 AM [facility] REPOSITORY O ID: [id number] Author: Lisseth Sauer) JEFF Palmer Service: Nursing Author Type: Registered Nurse Type: Nursing Progress Note Filed: 08/29/2017 6:52 AM Note Text: Nursing Progress Note Patient Name: Paloma Cannon [address] Daily Note: 0650 - Vipul pride paged to notify that Blood Cx drawn 08/26 @ 1828 from central line + MRSE. This note was completed by: Lisseth Palmer RN COMP METABOLIC PANEL Collected: 08/29/2017 Status: F Source: [place] 6:16 AM [facility] REPOSITORY TYPE CODE TESTS RESULT OUT [...] mg/dL Low Glucose 69 Result Comment: The [place] Diabetes Association (ADA) provides guidance for cutoff [...] Standards of Medical Care in Diabetes 2016, [place] [employer]. Diabetes Care. 2016.39(Suppl 1). LAB [...] actual GFR. Performed By: #### CMP #### [facility] [address] [place], [place] [address] PROTIME Collected: 08/29/2017 Status: F Source: [place] 4:07 AM [facility] REPOSITORY TYPE CODE TESTS RESULT OUT OF RANGE REFERENCE UNITS LAB PSEC 9.7-13.0 sec High PT Sec 27.6 LAB INR 0.9-1.3 High PT INR 2.8 Result Comment: Vitamin K Antagonist (VKA) Therapeutic Range: INR 2 to 3 (Target INR of 2.5) Note: For patients treated with VKA drugs, such as warfarin, the [place] [employer] Physicians 2012 Guideline recommends [...] Chest 2012, 141:7S-47S Diogenes RESENDIZ et al. [facility] 2017, 70: 252-289 Performed By: #### PT, CBCDIF #### [facility] [address] [place] [id number] CBC AND DIFFERENTIAL Collected: 08/29/2017 Status: F Source: [place] 4:07 AM [facility] [place] REPOSITORY TYPE CODE TESTS RESULT OUT OF [...] Abs Lymph 0.09 Low LAB AMONO % Owen% 4.2 LAB AAMONO <0.87 k/uL Abs Owen 0.05 LAB AEOS % Eosin% 4.7 LAB AAEOS <0.46 k/uL Abs Eosin 0.06 LAB ABASO % Baso% 2.8 LAB AABASO <0.11 k/uL Abs Baso 0.03 LAB NRBC 0 /100 WBC NRBCs 4 High LAB AMETA % Line [place]% 0.5 LAB ANIIMI Anisocytosis Present LAB LFTIMI Left Shift Present LAB GNTPLW Giant Platelets Occasional LAB OVAIMI Ovalocytes Few LAB POLIMI Polychromasia Slight LAB RCFIMI RBC Fragments Few LAB PLTEST Platelet Estimate Platelet estimate decreased LAB DTYP DTYPE Manual Diff Performed By: #### PT, CBCDIF #### [facility] [address] [place] [address] NURSING PROG Observed: 08/29/2017 Status: COMPLETED Source: [place] 2:21 AM [facility] REPOSITORY HNO ID: [id number] Author: Jeff Oates RN Service: (none) Author Type: Registered Nurse Type: Nursing Progress Note Filed: 08/29/2017 2:22 AM Note Text: Nursing Progress Note Patient Name: Paloma Cannon Patient Location: [place] [address] Daily Note: 0217 Lab called urgent value, +blood cultures on 08/26 from central line showing gram + cocci and clusters. Vipul pride paged. This note was completed by: Lashon Howell RN Observed: 08/28/2017 Status: F Source: [place] BLOOD CULTURE 4:40 PM [facility] REPOSITORY Culture Result - No growth 5 days Performed By: #### BLCUL #### [facility] [address] [place], [place] [address] Observed: 08/28/2017 Status: F Source: [place] BLOOD CULTURE 4:20 PM [facility] REPOSITORY Culture Result - No growth 5 days Performed By: #### BLCUL #### [facility] [address], [place] [address] PROGRESS Observed: 08/28/2017 Status: COMPLETED Source: [place] 1:55 PM [facility] REPOSITORY HNO ID: [id number] Author: Gael Simmons Service: Hospital Medicine Author Type: Physician Type: Progress Notes Filed: 08/28/2017 3:05 PM Note Text: [facility] [place] Progress Note PATIENT NAME: [...] 2 g in NaCl 0.9% 100 mL MB+/ADD-Bath 2 g INTRAVENOUS q 6 H diphenhydrAMINE [...] discussed with staff. SIGNATURE: [place] [id number] DATE of SERVICE: August 28, 2017 TIME of SERVICE: 1:56 PM [facility] STAFF PHYSICIAN NOTE OF PERSONAL INVOLVEMENT IN CARE I have reviewed the documentation obtained and documented by the team healthcare provider (fellow, resident, nurse practitioner or physician bankruptcy assistant) and I personally participated in the fernandes components. I have discussed the case and management of the patient's care and the note has been revised / addended to reflect my direct input. Gael Simmons MD [facility] Medicine Staff PAGER: [phone] DATE of Service: 08/28/2017 TIME of Service: 3:05 PM CONSULT PROG Observed: 08/28/2017 Status: COMPLETED Source: [place] 1:03 PM [facility] REPOSITORY HNO ID: [id number] Author: Dominique Wright Service: Infectious Disease Author Type: Physician Type: Consult Progress Note Filed: 08/28/2017 2:34 PM Note Text: INFECTIOUS DISEASE CONSULT SERVICE PROGRESS NOTE Date: August 28, 2017 Patient Name: Paloma Cannon Interval History: Doing well. MEDICATIONS Current Facility-Administered Medications: ampicillin 2 g in NaCl 0.9% 100 mL MB+/ADD-Bath 2 g INTRAVENOUS q 6 H diphenhydrAMINE [...] CASE MANAGEM Observed: 08/28/2017 Status: COMPLETED Source: [place] 12:18 PM [facility] REPOSITORY HNO ID: [id number] Author: Hailey Cunningham Service: Care Management Author Type: Java Architect Type: Care Mgt Progress Note Filed: 08/28/2017 12:19 PM Note Text: CARE MANAGEMENT PROGRESS NOTE SERVICE DATE: 08/28/2017 SERVICE TIME: 11:37 LOS: 3 days IM letter given to patient on 08/28/2017. SIGNATURE: Hailey Cunningham, PATIENT NAME: Paloma Cannon DATE: August 28, 2017 TIME: 12:18 PM PAGER/CONTACT #: [phone] PLAN OF CARE Observed: 08/28/2017 Status: COMPLETED Source: [place] 11:58 AM [facility] REPOSITORY HNO ID: [id number] Author: Geraldine Lazar (Mobile Electronics Installer) Service: (none) Author Type: (none) Type: Plan of Care Filed: 09/06/2017 2:07 PM Note Text: OCCUPATIONAL THERAPY DEPARTMENT CHAIR BEDSIDE DELIVERY SURVEY 1. Patient to use [facility] Bedside Delivery - NO time 2. [...] OF CARE Observed: 08/28/2017 Status: COMPLETED Source: [place] 11:45 AM [facility] REPOSITORY HNO ID: [id number] Author: Justina Pollard (Pa) Service: Hematology Author Type: Physician Reprint Sorter Type: Plan of Care Filed: 08/28/2017 2:53 [...] questions Discussed with Dr.Samaras Justina Pollard PA-C [id number] CASE MGT INIT Observed: 08/28/2017 Status: COMPLETED [facility]16 AM [facility] REPOSITORY HNO ID: [id number] Author: Dary (Rn) JEFF Jimenes Service: Care Management Author Type: Registered Nurse Type: Care Mgt Initial Assessment Filed: 08/28/2017 10:26 AM Note Text: CARE MANAGEMENT: ASSESSMENT AND DISCHARGE PLAN SERVICE DATE: 08/28/2017 SERVICE TIME: 10:17 AM PRIMARY CARE PHYSICIAN: PEYTON ROGERS MD ADMISSION STATUS: Inpatient POTENTIAL DISCHARGE PLANS Home To Be 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 N/A [...] (triple positive with + lupus anticoagulant, + [id number], and + anti-cardiolipin antibodies, she is on [...] given V and Z and transferred to [facility] for further management. Introduced myself to [...] ALLIED HEALTH Observed: 08/28/2017 Status: COMPLETED Source: [place] 8:49 AM [facility] REPOSITORY HNO ID: [id number] Author: Darrell (Mph) Gildardo Service: Infection Prevention [...] 28, 2017 TIME: 8:50 AM PAGER/CONTACT #: [phone] Infection Prevention after hours/weekend pager: [phone] VANCOMYCIN Collected: 08/28/2017 Status: F Source: [place] 4:28 AM [facility] REPOSITORY TYPE CODE TESTS RESULT OUT OF REFERENCE UNITS RANGE LAB VANCRA 5.0-20.0 ug/mL High Vancomycin 29.9 Result Comment: Reference ranges and high/low indicator flags are provided as general guidelines only. The treating physician must determine appropriate target levels/dosing based on the specific clinical situation. Performed By: #### VANCRA, PT, CBCDIF, BMP, HFP #### [facility] [address] [place], [place] [address] PROTIME Collected: 08/28/2017 Status: F Source: [place] 4:28 AM [facility] REPOSITORY TYPE CODE TESTS RESULT OUT OF RANGE REFERENCE UNITS LAB PSEC 9.7-13.0 sec High PT Sec 35.0 LAB INR 0.9-1.3 High PT INR 3.7 Result Comment: Vitamin K Antagonist (VKA) Therapeutic Range: INR 2 to 3 (Target INR of 2.5) Note: For patients treated with VKA drugs, such as warfarin, the [place] [employer] Chest Physicians 2012 Guideline recommends [...] Chest 2012, 141:7S-47S Diogenes RA, et al. [facility] 2017, 70: 252-289 Performed By: #### VANCRA, PT, CBCDIF, BMP, HFP #### [facility] [address] [place], [place] [address] CBC AND DIFFERENTIAL Collected: 08/28/2017 Status: F Source: [place] 4:28 AM [facility] REPOSITORY TYPE CODE TESTS RESULT OUT [...] Abs 0.12 Low Lymph LAB AMONO % Owen% 5.8 LAB AAMONO <0.87 k/uL Abs 0.15 Owen LAB AEOS % 3.9 Eosin% LAB AAEOS <0.46 k/uL Abs 0.10 Eosin LAB ABASO % Baso% 0.8 LAB AABASO <0.11 k/uL Abs <0.03 Baso LAB AUNRBC 0 /100 WBC NRBCs 0.0 LAB ABNRBC <0.01 k/uL <0.01 Absolute nRBC LAB DTYP DTYPE Auto Diff Performed By: #### VANCRA, PT, CBCDIF, BMP, HFP #### [facility] [address] [place] [id number] BASIC METABOLIC PANL Collected: 08/28/2017 Status: F Source: [place] 4:28 AM [facility] REPOSITORY TYPE CODE TESTS RESULT OUT OF REFERENCE UNITS RANGE LAB GLU 74-99 mg/dL Glucose 78 Result Comment: The [place] Diabetes Association (ADA) provides guidance for cutoff [...] Standards of Medical Care in Diabetes 2016, [place] [employer]. Diabetes Care. 2016.39(Suppl 1). LAB [...] #### VANCRA, PT, CBCDIF, BMP, HFP #### [facility] [address] [place] [address] HEPATIC FUNCTN PANEL Collected: 08/28/2017 Status: F Source: [place] 4:28 AM [facility] REPOSITORY TYPE CODE TESTS RESULT [...] #### VANCRA, PT, CBCDIF, BMP, HFP #### [facility] [address] [place] [id number] CONSULT PROG Observed: 08/27/2017 Status: COMPLETED Source: [place] 2:10 PM [facility] REPOSITORY HNO ID: [id number] Author: Dominique Wright Service: Infectious Disease Author [...] p.m. CONSULT Observed: 08/27/2017 Status: COMPLETED Source: [place] 12:54 PM [facility] [place] REPOSITORY HNO ID: [id number] Author: Dominique Rios Service: Hematology/Oncology Author Type: Physician Type: Consults Filed: 08/27/2017 4:09 PM Note Text: Hematology Consult Note PATIENT NAME: Paloma Martinez [facility] NO.: [id number] REQUESTING SERVICE: Internal Medicine History of Present [...] nephrotoxic agents - DVT (deep venous thrombosis) ([facility]) - Elevated CA-125 11/30/2013 244 - Essential hypertension 10/08/2015 Stable on home medications Plan: -continue to monitor on home meds - 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 Dominique Rios, Hematology Consult Service Pager [phone] PT ED Observed: 08/27/2017 Status: COMPLETED Source: [place] 11:22 AM [facility] [place] REPOSITORY O ID: [id number] Author: Thuy Mills (Pharmacist) Service: Pharmacy Author [...] INR checked at Dr. Guillaume Fuller' office ([facility]) with his MARKLOGIC DEVELOPER Magdalena Indication for warfarin: deep vein thrombosis [...] Guillaume Fuller' office of [facility] with his MARKLOGIC DEVELOPER Magdalena Patient extremely pleasant and well-versed on warfarin. States she has been on warfarin since ~2013 Anahi Do (Senior Security Architect) Thuy Mills, PharmD [address]753 NUTRITION Observed: 08/27/2017 Status: COMPLETED Source: [place] 9:11 AM [facility] REPOSITORY [facility] ID: [id number] Author: Edel Berg Service: Nutrition Therapy Author [...] Estimated kilocalorie needs: 2113 kilocalories determined by [place]-St. Jeor x 1.3 Estimated protein needs:93-112 grams [...] August 27, 2017 TIME: 9:11 AM PAGER: [phone] PROGRESS Observed: 08/27/2017 Status: COMPLETED Source: [place] 8:21 AM [facility] REPOSITORY O ID: [id number] Author: Kwesi Manriquez Service: General Internal Medicine [...] monitoring per pharmacy OTHER As Directed Jcarlos (Haritha) MD Natalie vancomycin 1.5 g in D5W [...] (CYTOXAN) 200 mg ORAL DAILY Kwesi K [place] 200 mg at 08/26/17 1731 sulfamethoxazole-trimethoprim 800-160 mg 1 tablet (BACTRIM DS,SEPTRA DS) 1 tablet ORAL -WE- Jcarlos Estrada MD 1 tablet at 08/25/17 [...] Yasmine Lovell MD Internal Medicine, PGY-1 Pager: [phone] *Note: On Weekdays from 5pm to 7am and Weekends from 3pm to 7am, please page the on-call pager ([phone]).* [facility] STAFF PHYSICIAN NOTE OF PERSONAL INVOLVEMENT [...] counseling and/or coordinating care for the patient. Bgib-ch-fcng time was [address] Simmons assumes service tomorrow. Kwesi Manriquez MD Beeper Number: [phone]. Date of Service: August 27, 2017 Time of Service: 11.20 AM. TYPE AND SCREEN Collected: 08/27/2017 Status: F Source: [place] 7:00 AM [facility] REPOSITORY TYPE CODE TESTS RESULT OUT OF REFERENCE UNITS RANGE LAB %ABR B ABO/RH(D) POSITIVE LAB % Antibody POS Screen Performed By: #### TSCR #### [facility] [address] [place], [place] [id number] PROTEIN/CREATININE RATIO Collected: Status: F Source: [place] 08/27/2017 5:56 AM [facility] REPOSITORY TYPE CODE TESTS RESULT OUT OF REFERENCE UNITS RANGE LAB UTPR 0-20 mg/dL Protein Urine 17 Random LAB UCRR 20-300 mg/dL Creatinine,Ur 49.4 ine,Ran LAB PCRAT <0.2 High Protein/Creat 0.3 inine Ratio Performed By: #### PRATIO #### [facility] [address] [place], [place] [address] SODIUM,URINE,RANDOM Collected: Status: F Source: [place] 08/27/2017 5:56 AM [facility] REPOSITORY TYPE CODE TESTS RESULT OUT OF RANGE REFERENCE UNITS LAB UNAR 14-216 mmol/L 28 Sodium,Urine ,Random Performed By: #### UNAR #### [address] [address] PROTIME Collected: 08/27/2017 Status: F Source: [place] 5:06 AM [facility] REPOSITORY TYPE CODE TESTS RESULT OUT OF RANGE REFERENCE UNITS LAB PSEC 9.7-13.0 sec High PT Sec 33.9 LAB INR 0.9-1.3 High PT INR 3.5 Result Comment: Vitamin K Antagonist (VKA) Therapeutic Range: INR 2 to 3 (Target INR of 2.5) Note: For patients treated with VKA drugs, such as warfarin, the [place] [employer] Chest Physicians 2012 Guideline recommends [...] Chest 2012, 141:7S-47S Diogenes RA, et al. [facility] 2017, 70: 252-289 Performed By: #### PT, BMP, MG1, PHOS, CBCDIF #### [facility] [address] [place], [place] [address] BASIC METABOLIC PANL Collected: 08/27/2017 Status: F Source: [place] 5:06 AM [facility] REPOSITORY TYPE CODE TESTS RESULT OUT OF REFERENCE UNITS RANGE LAB GLU 74-99 mg/dL Glucose 96 Result Comment: The [place] Diabetes Association (ADA) provides guidance for cutoff [...] Standards of Medical Care in Diabetes 2016, [place] [employer]. Diabetes Care. 2016.39(Suppl 1). LAB [...] #### PT, BMP, MG1, PHOS, CBCDIF #### [facility] [address] [place] [address] MAGNESIUM Collected: 08/27/2017 Status: F Source: [place] 5:06 AM [facility] REPOSITORY TYPE CODE TESTS RESULT OUT OF REFERENCE UNITS RANGE LAB MG 1.7-2.3 mg/dL Magnesium 2.2 Performed By: #### PT, BMP, MG1, PHOS, CBCDIF #### [facility] [address] [place] [address] PHOSPHORUS Collected: 08/27/2017 Status: F Source: [place] 5:06 AM [facility] REPOSITORY TYPE CODE TESTS RESULT OUT OF REFERENCE UNITS RANGE LAB PHOS 2.7-4.8 mg/dL Phosphorus 4.7 Performed By: #### PT, BMP, MG1, PHOS, CBCDIF #### [place] [address] CBC AND DIFFERENTIAL Collected: 08/27/2017 Status: F Source: [place] 5:06 AM [facility] REPOSITORY TYPE CODE TESTS RESULT OUT [...] Abs Lymph Low 0.11 LAB AMONO % Owen% 3.9 LAB AAMONO <0.87 k/uL Abs Owen 0.06 LAB AEOS % Eosin% 2.6 LAB [...] #### PT, BMP, MG1, PHOS, CBCDIF #### [facility] [address] [place] [id number] Observed: 08/26/2017 Status: F Source: [place] BLOOD CULTURE 6:43 PM [facility] REPOSITORY Culture Result - No growth 5 days Performed By: #### BLCUL #### [facility] [address] [place] [address] Observed: 08/26/2017 Status: F Source: [place] BLOOD CULTURE 6:28 PM [facility] REPOSITORY Additional Testing - Methicillin resistant Staphylococcus epidermidis (MRSE) detected by microarray. Single positive cultures of S. epidermidis usually represent contamination. Call lab within 72 h if f urther work up is required. Negative for Streptococcus spp. and Enterococcus spp. by microarray. Culture Result - Staphylococcus epidermidis Refer to specimen collected on 08/25/17 AT 1740 ([id number]) (NOTE) --> ABNORMAL ALERT Positive result called to and read back by:SAE G81 08/29/17 --&g t; ABNORMAL ALERT 0215 ANGEL [...] ABNORMAL ALERT Performed By: #### BLCUL #### [facility] [address] [place], [place] [address] XR ABDOMEN 1V SUPINE Observed: 08/26/2017 Status: F Source: [place] 4:33 PM [facility] REPOSITORY * * *Final Report* * * [...] Right upper quadrant clips. No Abnormal calcifications. Dopeman: [employer] Transcribe Date/Time: Aug 26 2017 5:11P Dictated by : SARAI EVANS MD This examination was interpreted and the report reviewed and electronically signed by: SARAI EVANS MD on Aug 26 2017 5:13PM EST [id number] NURSING PROG Observed: 08/26/2017 Status: COMPLETED Source: [place] 3:15 PM [facility] REPOSITORY HNO ID: [id number] Author: Tigist (Rn) JEFF Ramirez Service: (none) Author Type: Registered Nurse Type: Nursing Progress Note Filed: 08/26/2017 3:20 PM Note Text: Nursing Progress Note Patient Name: Paloma Cannon Patient Location: G081 023/G081-23 pt left This note was completed by: Tigist Ramirez RN RETICULOCYTE Collected: 08/26/2017 Status: F Source: [place] 1:48 PM [facility] REPOSITORY TYPE CODE TESTS RESULT OUT OF REFERENCE UNITS RANGE LAB RETC 0.4-2.0 % Retic% 1.5 LAB ABRET 0.0180-0.1000 M/uL Abs Retic 0.043 Performed By: #### RETIC, CMVQNT #### [facility] [address] [place] [address] CMV DNA QUANT BY Collected: 08/26/2017 Status: F Source: [place] PCR 1:48 PM [facility] REPOSITORY TYPE CODE TESTS RESULT OUT OF REFERENCE UNITS RANGE LAB CMVIU IU/mL CMV CMV DNA not DNA (IU/mL) detected by PCR. Result Comment: Linear Range 137 - 9,100,000 IU/mL (2.14 - 6.96 log IU/mL) Reference Range: Negative for CMV DNA Performed By: #### RETIC, CMVQNT #### [place] [address] FUNGAL BATTERY - CF Collected: 08/26/2017 Status: F Source: [place] 1:48 [facility] REPOSITORY TYPE CODE TESTS RESULT [...] Negative <1:2 Performed By: #### FUNCF #### [place] [address] [place], [place] [address] CONSULT Observed: 08/26/2017 Status: COMPLETED Source: [place] 1:38 PM [facility] REPOSITORY HNO ID: [id number] Author: Dominique Wright Service: Infectious Disease Author [...] 08/25 are growing GPC pairs, chains. Awaiting Qiandao data on initial identification. Stool positive for [...] 2:20 p.m. Observed: 08/26/2017 Status: F Source: [place] URINE CULTURE 1:31 PM [facility] [place] REPOSITORY Sp. Request/Comment: - Specimen received in preservative Culture Result - No growth (<1,000 CFU/ml) Performed By: #### URCUL #### [facility] [address] [place], [place] [address] C DIFFICILE PCR Collected: 08/26/2017 Status: F Source: [place] 9:28 AM [facility] REPOSITORY TYPE CODE TESTS RESULT OUT OF RANGE REFERENCE UNITS LAB CDFRES C Abnormal difficile PCR Positive for Alert C. difficile toxin by PCR Result Comment: Called to and read back by: Clarence TORRES ON 08/26/17 AT 1352 TO Asif GASTON Performed By: #### CDPCR #### [facility] [address] [place], [place] [address] CONSULT PROG Observed: 08/26/2017 Status: COMPLETED Source: [place] 8:28 AM [facility] REPOSITORY HNO ID: [id number] Author: Daysi Rodriguez (Heat Set Operator) Service: Pharmacy Author Type: Pharmacist Type: Consult [...] any questions, please contact Rome Yu at [phone]. Age: [age] year old Allergies: ALLERGIES Allergen [...] 03/19/2017 23.9 (H) 03/17/2017 19.7 DAYSI RODRIGUEZ, CUSTOMS CONSULTANT PLAN OF CARE Observed: 08/26/2017 Status: COMPLETED Source: [place] 8:09 AM [facility] REPOSITORY HNO ID: [id number] Author: Lorna Dowling Service: General Internal Medicine Author Type: Resident Type: Plan of Care Filed: 08/26/2017 8:10 AM Note Text: Patient transferred to Vipul D, Resident Service on August 26, 2017. ? Mining Analyst (first call)- Yasmine Russo; Pager [phone]. ? Resident: Lorna Dowling MD, PhD; Pager [phone]. Staff: Kwesi Manriquez MD. PROTIME Collected: 08/26/2017 Status: F Source: [place] 5:01 AM [facility] REPOSITORY TYPE CODE TESTS RESULT OUT OF RANGE REFERENCE UNITS LAB PSEC 9.7-13.0 sec High PT Sec 24.1 LAB INR 0.9-1.3 High PT INR 2.5 Result Comment: Vitamin K Antagonist (VKA) Therapeutic Range: INR 2 to 3 (Target INR of 2.5) Note: For patients treated with VKA drugs, such as warfarin, the [place] [employer] 2012 Guideline recommends [...] Chest 2012, 141:7S-47S Diogenes RA, et al. [facility] 2017, 70: 252-289 Performed By: #### PT, BMP, MG1, PHOS, CBCDIF #### [facility] [address] [address] BASIC METABOLIC PANL Collected: 08/26/2017 Status: F Source: [place] 5:01 AM [facility] REPOSITORY TYPE CODE TESTS RESULT OUT OF REFERENCE UNITS RANGE LAB GLU 74-99 mg/dL Low Glucose 73 Result Comment: The [place] [employer] (ADA) provides guidance for cutoff [...] Standards of Medical Care in Diabetes 2016, [place] [employer]. Diabetes Care. 2016.39(Suppl 1). LAB [...] #### PT, BMP, MG1, PHOS, CBCDIF #### [facility] [address] [place] [address] MAGNESIUM Collected: 08/26/2017 Status: F Source: [place] 5:01 [facility] REPOSITORY TYPE CODE TESTS RESULT OUT OF REFERENCE UNITS RANGE LAB MG 1.7-2.3 mg/dL Low Magnesium 1.6 Performed By: #### PT, BMP, MG1, PHOS, CBCDIF #### [facility] [address] [place] [address] PHOSPHORUS Collected: 08/26/2017 Status: F Source: [place] 5:01 [facility] REPOSITORY TYPE CODE TESTS RESULT OUT OF REFERENCE UNITS RANGE LAB PHOS 2.7-4.8 mg/dL Phosphorus 2.7 Performed By: #### PT, BMP, MG1, PHOS, CBCDIF #### [facility] [address] [place] [id number] CBC AND DIFFERENTIAL Collected: 08/26/2017 Status: F Source: [place] 5:01 [facility] REPOSITORY TYPE CODE TESTS RESULT OUT [...] Abs 0.18 Low Lymph LAB AMONO % Owen% 11.1 LAB AAMONO <0.87 k/uL Abs 0.23 Owen LAB AEOS % 2.4 Eosin% LAB AAEOS <0.46 k/uL Abs 0.05 Eosin LAB ABASO % Baso% 1.0 LAB AABASO <0.11 k/uL Abs <0.03 Baso LAB AUNRBC 0 /100 WBC NRBCs 0.0 LAB ABNRBC <0.01 k/uL <0.01 Absolute nRBC LAB DTYP DTYPE Auto Diff Performed By: #### PT, BMP, MG1, PHOS, CBCDIF #### [facility] [address] [place], [place] [address] URINALYSIS WITH Collected: 08/25/2017 Status: F Source: [facility] 11:09 PM [facility] REPOSITORY TYPE CODE TESTS RESULT OUT OF RANGE REFERENCE UNITS LAB UCOL Yellow Color Abnormal Lisseth Alert LAB [facility] Clear Clarity Abnormal Cloudy Alert LAB UGLUC Negative mg/dL Glucose, Urine Negative LAB UBIL Negative Bilirubin, Urine Negative LAB UKET Negative Ketones, Urine Negative LAB [facility] 1.005-1.030 Specific [place], Ur 1.017 LAB UHGB Negative Abnormal Hemoglobin/Blood, [...] Epithelial Cells Performed By: #### UAWMIC #### [facility] [address] [id number] NURSING PROG Observed: 08/25/2017 Status: COMPLETED Source: [place] 10:55 PM [facility] REPOSITORY HNO ID: [id number] Author: Rachael SanchezRn) JEFF Andrade Service: Nursing Author Type: Registered Nurse Type: Nursing Progress Note Filed: 08/26/2017 12:34 AM Note Text: Admission/Transfer Note PATIENT NAME: Paloma Cannon Patient admitted from ED via stretcher in stable condition. Notified Of sepsis care path [facility]. Actions taken: Patient oriented to room, call light function, prescribed activities, Patient rights and Quiet at night. This note was completed by: Rachael Andrade RN HISTORY PHYSICAL Observed: 08/25/2017 Status: COMPLETED Source: [place] 9:45 PM [facility] REPOSITORY HNO ID: [id number] Author: Kwesi Manriquez Service: General Internal Medicine [...] CKD. - Gallstone pancreatitis S/P cholecystectomy - 2016 - Catheter related infection completed 6 weeks [...] she decided [facility]. When she presented she was febrile, un [...] to Warfarin bridging - HIT (heparin-induced thrombocytopenia) ([facility]) - Nontoxic multinodular goiter - Obese [...] (FLONASE) 50 mcg/actuation nasal spray Use 1 Oakwood in each nostril once daily. Disp: Rfl: [...] Unknown at Unknown time Miscellaneous Medical Supply [facility] package 30 - 40 mmHg pressure [...] triple positive with + lupus anticoagulant, + zwqc-n9-eynzlujjuvdr, and + anti-cardiolipin antibodies, she is on [...] slower rate History of HIT (heparin-induced thrombocytopenia) ([facility]) She is on coumadin for this reason She has pancytopenia now, possibly related to Cytoxan Plan: - Avoid heparin products - Daily CBC Recurrent Deep Vein Thrombosis (Dvt) (Formerly [facility]) Complicated by PE AND?DVT 09/2013 (s/p b/l iliac v. stents and Endoglix AFX endograft at the inferior vena caval bifurcation) on Warfarin (h/o HIT) extensive thrombectomy at outside hospital for right lower extremity and IVC thrombus. Plan: - Continue Warfarin 7.5 - Monitor INR SIGNATURE: Jcarlos Estrada MD PATIENT NAME: Paloma Cannon DATE: August 25, 2017 TIME: 9:46 PM PAGER/CONTACT #: [phone] [facility] Addendum Please refer to excellent note by [...] (triple positive with + lupus anticoagulant, + zsfb-u0-lpdtbkwpwmcf, and + anti-cardiolipin antibodies, she is on [...] given V and Z and transferred to [facility] for further management. PHYSICAL EXAM Blood [...] (triple positive with + lupus anticoagulant, + yzgv-o7-cogznoraiqyc, and + anti-cardiolipin antibodies, - She is [...] (L) 0.20 (L) 0.13 (L) 0.18 (L) Owen% 4.6 6.2 8.7 6.5 11.1 Abs Owen 0.31 0.35 0.28 0.19 0.23 Eosin% 5.1 [...] Manuel Serrato MD Internal Medicine PGY-3 Pager [phone] August 25, 2017 11:02 PM. [facility] STAFF PHYSICIAN NOTE OF PERSONAL INVOLVEMENT IN CARE: Patient seen with overnight admitting team and [place] team D. I have reviewed the history [...] counseling and/or coordinating care for the patient. Isqe-yg-tsmi time was 25 minutes. Kwesi Manriquez MD Beeper Number: [id number]. Date of Service: August 26, 2017 Time of Service: 11.14 AM. PT ED Observed: 08/25/2017 Status: COMPLETED Source: [place] 8:54 PM [facility] REPOSITORY HNO ID: [id number] Author: Ccf Provider Service: (none) Author Type: Physician Type: Patient Education Filed: 08/25/2017 8:54 PM Note Text: [facility] Patient Education Report --------- Name: PALOMA MARTINEZ Date: 08/25/2017 Time: 8:53 PM Patient Ordered Video: Inpatient Falls from [id number] via phone number [phone] at 8:53 PM ED NOTE Observed: 08/25/2017 Status: COMPLETED Source: [place] 8:05 PM [facility] REPOSITORY HNO ID: [id number] Author: Aubree Sauer) JEFF Flanagan Service: Emergency Medicine Author Type: Registered Nurse Type: ED Notes Filed: 08/25/2017 8:09 PM Note Text: VSS. Transported to [facility] via cart escorted by medic. Remains stable. Spouse at bedside. Belongings at side. 2nd liter of IVF continue to infuse as ordered; see MAR. IV antibiotics hung and infusing as ordered; see MAR. ED NOTE Observed: 08/25/2017 Status: COMPLETED Source: [place] 7:56 PM [facility] REPOSITORY HNO ID: [id number] Author: Aubree (Rn) JEFF Flanagan Service: Emergency Medicine Author Type: Registered Nurse Type: ED Notes Filed: 08/25/2017 7:57 PM Note Text: Report to [facility] on [facility]; bed ready. Awaiting transport. PROGRESS Observed: 08/25/2017 Status: COMPLETED Source: [place] 6:35 PM [facility] REPOSITORY HNO ID: [id number] Author: Sue SanchezRt) Olvin Service: Radiology Author Type: Shipping Supervisor Type: Progress Notes Filed: 08/25/2017 6:35 PM [...] Observed: 08/25/2017 Status: F Source: [facility] 6:34 PM [facility] REPOSITORY * * *Final Report* * * [...] NEW CARDIOPULMONARY FINDINGS. IMPROVEMENT IN PULMONARY EDEMA. Dopeman: PSCB Transcribe Date/Time: Aug 25 2017 6:49P Dictated by : MARK LARA MD This examination was interpreted and the report reviewed and electronically signed by: MARK LARA MD on Aug 25 2017 6:55PM EST [id number] ED NOTE Observed: 08/25/2017 Status: COMPLETED Source: [place] 6:22 PM [facility] REPOSITORY HNO ID: [id number] Author: Marissa Saeur) JEFF Cormier Service: Emergency Medicine Author Type: Registered Nurse Type: ED Notes Filed: 08/25/2017 6:32 PM Note Text: at bedside. Neutropenic precautions maintained. C/o fever 103.2 starting around 1:30pm. Pt also had chills, Rigor shaking, then vomiting, no diarrhea. Pt had vertigo with the vomiting. Pt has a little sternal pain from vomiting. 2/10. Pt has neuropathy pain under her R [...] ED NOTE Observed: 08/25/2017 Status: COMPLETED Source: [place] 6:21 PM [facility] REPOSITORY HNO ID: [id number] Author: Marissa Sauer) JEFF Cormier Service: Emergency Medicine Author Type: Registered Nurse Type: ED Notes Filed: 08/25/2017 6:22 PM Note Text: Flu swab obtained and sent to POC IV fluid bolus infusing 1st liter up. ED PROV NOTE Observed: 08/25/2017 Status: COMPLETED Source: [place] 5:56 PM [facility] RE[facility]IT[facility] HNO ID: [id number] Author: Ishaan Byrne MD Service: Emergency Medicine [...] nephrotoxic agents - DVT (deep venous thrombosis) ([facility]) - Elevated CA-125 11/30/2013 244 - Essential hypertension 10/08/2015 Stable on home medications Plan: -continue to monitor on home meds - 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 Bivalirudin to Warfarin bridging - HIT (heparin-induced thrombocytopenia) ([facility]) - Nontoxic multinodular goiter - Obese [...] ED NOTE Observed: 08/25/2017 Status: COMPLETED Source: [place] 5:48 PM [facility] REPOSITORY HNO ID: [id number] Author: Marissa Sauer) JEFF Cormier Service: Emergency Medicine Author Type: Registered Nurse Type: ED Notes Filed: 08/25/2017 5:48 PM Note Text: X ray at bedside to do port chest film ED NOTE Observed: 08/25/2017 Status: COMPLETED Source: [place] 5:46 PM [facility] REPOSITORY HNO ID: [id number] Author: Marissa Sauer) JEFF Cormier Service: Emergency Medicine Author Type: Registered Nurse Type: ED Notes Filed: 08/25/2017 5:47 PM Note Text: Assumed care of the patient. Triage note reviewed. Labs obtained, including blood cultures and sent to the lab. Update report taken from Charge nurse. ED NOTE Observed: 08/25/2017 Status: COMPLETED Source: [place] 5:46 PM [facility] REPOSITORY HNO ID: [id number] Author: Zhou (Medic) Osmin Medrano Service: Emergency Medicine Author Type: Ladies Suit Operator and Shipping Supervisor Type: ED Notes Filed: 08/25/2017 5:46 PM Note Text: Labs including Lactic acid drawn and sent ED NOTE Observed: 08/25/2017 Status: COMPLETED Source: [place] 5:40 PM [facility] [place] REPOSITORY HNO ID: [id number] Author: Mari Matt RN Service: Emergency Medicine Author Type: Registered Nurse Type: ED Notes Filed: 08/25/2017 5:46 PM Note Text: Blood cultures 2nd set drawn from R chest central line and sent. Observed: 08/25/2017 Status: F Source: [place] BLOOD CULTURE 5:40 PM [facility] REPOSITORY Culture Result - Enterococcus faecalis Cephalosporins, clindamycin, and TMP-SMX are not effective for the treatment of enterococcal infections. --> ABNORMAL ALERT Refer to specimen collected on --&gt ; ABNORMAL ALERT 1730 ([id number]) --> ABNORMAL ALERT Staphylococcus epidermidis --> ABNORMAL ALERT (NOTE) --> ABNORMAL ALERT Positive result called to and read back by: Briana Torres [facility] alicia G81 --> ABNORMAL ALERT 08/26/17 0835 Ismael Munoz --> ABNORMAL ALERT Preliminary Gram stain. Gram positive cocci in clusters(*) Called to --> ABNORMAL ALERT and read back by: rBiana Torres 08/27/2017 1410 to LaurenShane Martell. --> ABNORMAL ALERT ORGANISM: Staphylococcus epidermidis [...] 2 F Performed By: #### BLCUL #### [facility] [address] [place] [id number] ED NOTE Observed: 08/25/2017 Status: COMPLETED Source: [place] 5:38 PM [facility] [place] REPOSITORY HNO ID: [id number] Author: Mari SanchezRn) JEFF Matt Service: Emergency Medicine Author Type: Registered Nurse Type: ED Notes Filed: 08/25/2017 5:46 PM Note Text: Labs including lactate drawn and sent ED NOTE Observed: 08/25/2017 Status: COMPLETED Source: [place] 5:30 PM [facility] REPOSITORY HNO ID: [id number] Author: Zhou (Medic) Osmin Medrano Service: Emergency Medicine Author Type: Ladies Suit Operator and Shipping Supervisor Type: ED Notes Filed: 08/25/2017 5:45 PM Note Text: Blood cultures drawn and sent.BC#1 RH via straight stick CBC AND DIFFERENTIAL Collected: 08/25/2017 Status: F Source: [place] 5:30 PM [facility] REPOSITORY TYPE CODE TESTS RESULT OUT [...] Abs 0.13 Low Lymph LAB AMONO % Owen% 6.5 LAB AAMONO <0.87 k/uL Abs 0.19 Owen LAB AEOS % 1.7 Eosin% LAB AAEOS <0.46 k/uL Abs 0.05 Eosin LAB ABASO % Baso% 1.0 LAB AABASO <0.11 k/uL Abs 0.03 Baso LAB AUNRBC 0 /100 WBC NRBCs 0.0 LAB ABNRBC <0.01 k/uL <0.01 Absolute nRBC LAB DTYP DTYPE Auto Diff Performed By: #### CBCDIF, CMP #### [facility] [address] [place] [address] COMP METABOLIC PANEL Collected: 08/25/2017 Status: F Source: [place] 5:30 PM [facility] REPOSITORY TYPE CODE [...] mg/dL Low Glucose 67 Result Comment: The [place] [employer] (ADA) provides guidance for cutoff [...] Standards of Medical Care in Diabetes 2016, [place] [employer]. Diabetes Care. 2016.39(Suppl 1). LAB [...] GFR. Performed By: #### CBCDIF, CMP #### [facility] [address] [place], [place] [address] PROTIME Collected: 08/25/2017 Status: F Source: [place] 5:30 PM [facility] REPOSITORY TYPE CODE TESTS RESULT OUT OF RANGE REFERENCE UNITS LAB PSEC 9.7-13.0 sec High PT Sec 21.4 LAB INR 0.9-1.3 High PT INR 2.2 Result Comment: Vitamin K Antagonist (VKA) Therapeutic Range: INR 2 to 3 (Target INR of 2.5) Note: For patients treated with VKA drugs, such as warfarin, the [place] [employer]icians 2012 Guideline recommends [...] Chest 2012, 141:7S-47S Diogenes RA, et al. [facility] 2017, 70: 252-289 Performed By: #### PT #### [facility] [address] [place], [place] [address] Observed: 08/25/2017 Status: F Source: [place] BLOOD CULTURE 5:30 PM [facility] REPOSITORY Culture Result - Enterococcus faecalis Cephalosporins, clindamycin, and TMP-SMX are not effective for the treatment of enterococcal infections. --> ABNORMAL ALERT Beta lactamase Negative --> ABNOR MAL ALERT Staphylococcus epidermidis --> ABNORMAL ALERT Refer to specimen collected on --> ABNORMAL ALERT 08/25/17 AT 1740 ([id number]) --> ABNORMAL ALERT (NOTE) Positive result called to and read back by:Roxana [id number] 08/26/17 1414 BBlum ORGANISM: Enterococcus faecalis METHOD: [...] also susceptible. Performed By: #### BLCUL #### [facility] [address], [place] [address] ED NOTE Observed: 08/25/2017 Status: COMPLETED Source: [place] 5:15 PM [facility] REPOSITORY HNO ID: [id number] Author: Mark (Rn) JEFF Lu Service: (none) Author Type: Registered Nurse Type: ED Notes Filed: 08/25/2017 5:15 PM Note Text: Bed: E12-09 Expected date: Expected time: Means of arrival: Comments: Fever with hx PROTHROMBIN TIME W/INR Collected: 08/25/2017 Status: F Source: [place] 8:03 AM [facility] REPOSITORY Order Comment: MEDOUT/PORT DRAW TYPE CODE TESTS RESULT OUT OF RANGE REFERENCE UNITS LAB L300.4150 11.7-14.9 SECONDS High PROTIME 21.4 LAB L300.4200 Normal INR 1.9 Performed By: #### L300.3900 #### [facility] [address] [place], [address] HOSP Observed: 08/25/2017 Status: COMPLETED Source: [place] 12:00 AM [facility] REPOSITORY Patient:Paloma Martinez MRN: <[id number]> Height:5' 2.992(1.6 m) Weight:209 lb 9.6 oz [...] mg 24 hr tablet Miscellaneous Medical Supply misc cetirizine 10 mg tablet senna 8.6 mg [...] HTN (hypertension) [I10] CAPRICE (acute kidney injury) ([facility]) [N17.9] Acute on chronic respiratory failure with hypoxia ([facility]) [J96.21] Abdominal pain [R10.9] Severe protein-calorie malnutrition (HCC) [E43] History of heparin-induced thrombocytopenia [Z86.2] (HFpEF) heart failure with preserved ejection fraction (HCC) [I50.30] Peripheral neuropathy [G62.9] CKD (chronic kidney disease) stage 3, GFR 30-59 ml/min [N18.3] Obesity, Class III, BMI >= 40 (morbid obesity) E66.01 [E66.01] APS (antiphospholipid syndrome) ([facility]) [D68.61] Anticoagulation management encounter [Z51.81, Z79.01] Pulmonary HTN [I27.20] GERD (gastroesophageal reflux disease) [K21.9] RUQ abdominal pain [R10.11] Diarrhea [R19.7] Bacteremia [R78.81] History of HIT (heparin-induced thrombocytopenia) ([facility]) [D75.82] Recurrent deep vein thrombosis (DVT) ([facility]) [I82.409] Recurrent pulmonary emboli (HCC) [I26.99] Anticoagulation monitoring, special range [Z79.01] Renal vein thrombosis (HCC) [I82.3] 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 Marissa Cormier RN, RN 08/25/2017 6:32 PM Signed at bedside. Neutropenic precautions maintained. C/o fever 103.2 starting around 1:30pm. Pt also had chills, Rigor shaking, then vomiting, no diarrhea. Pt had vertigo with the vomiting. Pt has a little sternal pain from vomiting. 08/19. Pt has neuropathy pain under her R [...] cough up blood due to her coughing. RT Pawan 08/25/2017 6:35 PM Signed Radiology Service Progress [...] RN 08/25/2017 7:57 PM Signed Report to [facility] on [facility]; bed ready. Awaiting transport. Aubree Flanagan, RN, RN 08/25/2017 8:09 PM Addendum VSS. Transported to [facility] via cart escorted by medic. Remains stable. Spouse at bedside. Belongings at side. 2nd liter of IVF continue to infuse as ordered; see MAR. IV antibiotics hung and infusing as ordered; see MAR. Previous Version Ccf Provider 08/25/2017 8:54 PM Signed [facility] Patient Education Report ---- Name: PALOMA MARTINEZ Date: 08/25/2017 Time: 8:53 PM Patient Ordered Video: Inpatient Falls from [id number] via phone number [phone] at 8:53 PM Kwesi Manriquez MD 08/26/2017 11:15 AM Addendum INTERNAL MEDICINE HANDP EXAMINATION VIPUL Marie SERVICE DATE: 08/25/2017 SERVICE TIME: 9:46 PM PRIMARY CARE PHYSICIAN: PEYTON ROGERS MD Subjective CHIEF COMPLAINT: Fever, nausea and vomit HISTORY OF PRESENT ILLNESS: Ms. Butterbaugh Davis is a 27 year old female with [...] she decided [facility]. When she presented she was febrile, un [...] to Warfarin bridging - HIT (heparin-induced thrombocytopenia) ([facility]) - Nontoxic multinodular goiter - Obese [...] (FLONASE) 50 mcg/actuation nasal spray Use 1 [place] in each nostril once daily. Disp: Rfl: [...] Unknown at Unknown time Miscellaneous Medical Supply [facility] package 30 - 40 mmHg pressure [...] (!) 105 20 100 % - - 08/25/17 1709 144/58 (!) 38.9 ?C (102.1 ?F) Oral [...] triple positive with + lupus anticoagulant, + jrtj-d5-hapngsbqsqkh, and + anti-cardiolipin antibodies, she is on [...] slower rate History of HIT (heparin-induced thrombocytopenia) ([facility]) She is on coumadin for this reason She has pancytopenia now, possibly related to Cytoxan Plan: - Avoid heparin products - Daily CBC Recurrent Deep Vein Thrombosis (Dvt) ([facility]) Complicated by PE AND?DVT 09/2013 (s/p b/l iliac v. stents and Endoglix AFX endograft at the inferior vena caval bifurcation) on Warfarin (h/o HIT) extensive thrombectomy at outside hospital for right lower extremity and IVC thrombus. Plan: - Continue Warfarin 7.5 - Monitor INR SIGNATURE: Jcarlos Estrada MD PATIENT NAME: Paloma Cannon DATE: August 25, 2017 TIME: 9:46 PM PAGER/CONTACT #: [phone] [facility] Addendum Please refer to excellent note by [...] (triple positive with + lupus anticoagulant, + kwfk-x9-pmkkmhogamcj, and + anti-cardiolipin antibodies, she is on [...] given V and Z and transferred to [facility] for further management. PHYSICAL EXAM Blood [...] (triple positive with + lupus anticoagulant, + ueqd-v8-lepdwsydmmct, and + anti-cardiolipin antibodies, - She is [...] (L) 0.20 (L) 0.13 (L) 0.18 (L) Owen% 4.6 6.2 8.7 6.5 11.1 Abs Owen 0.31 0.35 0.28 0.19 0.23 Eosin% 5.1 [...] Manuel Serrato MD Internal Medicine PGY-3 Pager [phone] August 25, 2017 11:02 PM. [facility] STAFF PHYSICIAN NOTE OF PERSONAL INVOLVEMENT IN CARE: Patient seen with overnight admitting team and [place] team D. I have reviewed the history [...] counseling and/or coordinating care for the patient. Ahnm-al-yval time was 25 minutes. Kwesi Manriquez MD Beeper Number: [id number]. Date of Service: August 26, 2017 Time of Service: 11.14 AM. Previous Version Rachael Andrade RN, RN 08/26/2017 12:34 AM Addendum Admission/Transfer Note PATIENT NAME: Paloma Cannon Patient admitted from ED via stretcher in stable condition. Notified Of sepsis care path [facility]. Actions taken: Patient oriented to room, call light function, prescribed activities, Patient rights and Quiet at night. This note was completed by: Rachael Andrade RN Previous Version Lorna Dowling MD 08/26/2017 8:10 AM Signed Patient transferred to Resident [facility] Service on August 26, 2017. ? Mining Analyst (first call)- Yasmine Russo; Pager [phone]. ? Resident: Lorna Dowling MD, PhD; Pager [phone]. Staff: Kwesi Manriquez MD. DAYSI RODRIGUEZ, CUSTOMS CONSULTANT 08/26/2017 8:29 AM Signed PHARMACY VANCOMYCIN DOSING [...] any questions, please contact Rome Yu at [phone]. Age: [age] year old Allergies: ALLERGIES Allergen [...] 03/19/2017 23.9 (H) 03/17/2017 19.7 DAYSI RODRIGUEZ, CUSTOMS CONSULTANT Dominique Wright MD 08/26/2017 2:25 PM Addendum [...] tablet (BACTRIM DS,SEPTRA DS) 1 tablet ORAL -WE-FR carvedilol 25 mg tab(s) (COREG) 25 mg [...] (BACTRIM DS,SEPTRA DS) 1 tablet ORAL MO-WE-FR carvedilol 25 mg tab(s) (COREG) 25 mg [...] cap(s) (CYTOXAN) 200 mg ORAL DAILY Kwesi Manriquez 200 mg at 08/26/17 1731 sulfamethoxazole-trimethoprim 800-160 mg 1 tablet (BACTRIM DS,SEPTRA DS) 1 tablet ORAL MO-WE-FR Jcarlos Estrada MD 1 tablet at 08/25/17 [...] Yasmine Lovell MD Internal Medicine, PGY-1 Pager: [phone] *Note: On Weekdays from 5pm to 7am and Weekends from 3pm to 7am, please page the on-call pager [phone]).* [facility] STAFF PHYSICIAN NOTE OF PERSONAL INVOLVEMENT [...] counseling and/or coordinating care for the patient. Ugvt-ya-pxqh time was [address] Simmons assumes service tomorrow. Kwesi Manriquez MD Beeper Number: [id number]. Date of Service: August 27, 2017 Time of Service: 11.20 AM. Previous Version Edel Berg RD LD 08/27/2017 3:22 PM Signed [...] Enteral Access: 0 Nutritional Intake: 08/25- 0 /- 25% supper only GI symptoms: anorexia Abdominal [...] Estimated kilocalorie needs: 2113 kilocalories determined by Louisa-St. Jeor x 1.3 Estimated protein needs:93-112 grams [...] August 27, 2017 TIME: 9:11 AM PAGER: [phone] Thuy Mills, Pharmacist 08/27/2017 12:28 PM Signed PHARMACY WARFARIN EDUCATION Patient Name: Paloma Cannon Account #: Data Unavailable Admission Date: 08/25/2017 5:15 PM Date of Contact: August 27, 2017 Time of Contact: 11:23 AM Patient new to warfarin? No: Previous (home) dosage: 7.5 mg Sat and Sun; 5 mg Mon,, Wed, , Mon Outpatient follow-up plan: Pt reports she gets her INR checked at Dr. Guillaume Fuller' office ([facility] physician) with his MARKLOGIC DEVELOPER Magdalena Indication for warfarin: deep vein thrombosis [...] Guillaume Fuller' office of [facility] with his MARKLOGIC DEVELOPER Magdalena Patient extremely pleasant and well-versed on warfarin. States she has been on warfarin since ~2013 Anahi Do (Senior Security Architect) Thuy Mills, PharmD [id number] Previous Version Dominique Rios DO 08/27/2017 4:09 PM Addendum Hematology Consult Note PATIENT NAME: Paloma Martinez CLINIC NO.: [id number] REQUESTING SERVICE: Internal Medicine History of Present [...] Lymph 1.00 - 4.00 k/uL 0.11 (L) Owen% % 3.9 Abs Owen <0.87 k/uL 0.06 Eosin% % 2.6 Abs [...] questions. 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 N/A [...] (triple positive with + lupus anticoagulant, + qiok-w2-cifnsmxisgiy, and + anti-cardiolipin antibodies, she is on plasmapheresis every other week since 13 and is also on Prednisone 5 mg [...] In 03/2017 there was a concern for MRSE line related sepsis when she was d/c on COPAT with Daptomycin. She was also complaining of some burning with urination. No other s/s of nocturia, hematuria, frequency, urgency. When she presented to the ED, VS were consistent with Tm 102.1F, HR 111, BP 144/58. Blood cultures were drawn and she was given V and Z and transferred to [facility] for further management. Introduced myself to [...] 28, 2017 TIME: 10:17 AM PAGER/CONTACT #: [phone] Justina Pollard PA-C 08/28/2017 2:53 PM Signed [...] back with questions Discussed with Dr.Samaras Justina Pollard, CY-C [id number] Geraldine Lazar (Mobile Electronics Installer) 08/28/2017 11:58 AM Signed OCCUPATIONAL THERAPY DEPARTMENT CHAIR BEDSIDE DELIVERY SURVEY 1. Patient to use [facility] Bedside Delivery - YES 2. If fax, patient would like us to fax prescriptions to Pharmacy of choice a. Pharmacy: b. Location: c. Phone: 3. Insurance card on file - YES 4. Credit card for payment - NO No prescriptions yet. Please page [phone] Hailey Cunningham, 08/28/2017 12:19 PM Signed CARE MANAGEMENT PROGRESS NOTE SERVICE DATE: 08/28/2017 SERVICE TIME: 11:37 LOS: 3 days IM letter given to patient on 08/28/2017. SIGNATURE: Hailey Cunningham, PATIENT NAME: Paloma Cannon DATE: August 28, 2017 TIME: 12:18 PM PAGER/CONTACT #: [phone] Dominique Wright MD 08/28/2017 2:34 PM Addendum INFECTIOUS DISEASE CONSULT SERVICE PROGRESS NOTE Date: August 28, 2017 Patient Name: Paloma Cannon Interval History: Doing well. MEDICATIONS Current Facility-Administered Medications: ampicillin 2 g in NaCl 0.9% 100 mL MB+/ADD-Bath 2 g INTRAVENOUS q 6 H diphenhydrAMINE [...] Version Gael Simmons MD 08/28/2017 3:[address] [facility] Progress Note PATIENT NAME: [...] 2 g in NaCl 0.9% 100 mL MB+/ADD-Bath 2 g INTRAVENOUS q 6 H diphenhydrAMINE [...] discussed with staff. SIGNATURE: [place] [id number] DATE of SERVICE: August 28, 2017 TIME of SERVICE: 1:56 PM [facility] STAFF PHYSICIAN NOTE OF PERSONAL INVOLVEMENT IN CARE I have reviewed the documentation obtained and documented by the team healthcare provider (fellow, resident, nurse practitioner or physician bankruptcy assistant) and I personally participated in the fernandes components. I have discussed the case and management of the patient's care and the note has been revised / addended to reflect my direct input. Gael Simmons MD [facility] Medicine Staff PAGER: [phone] DATE of Service: 08/28/2017 TIME of Service: 3:05 PM Previous Version Lashon Howell, RN, RN 08/29/2017 2:22 AM Signed Nursing Progress Note Patient Name: Paloma Cannon Patient Location: [place] [address] Daily Note: 0217 Lab called urgent value, +blood cultures on 08/26 from central line showing gram + cocci and clusters. Vipul nights paged. This note was completed by: JEFF Gomez RN, RN 08/29/2017 6:52 AM Signed Nursing Progress Note Patient Name: Paloma Cannon Patient Location: [place] [address]- Daily Note: 0650 - Vipul nights paged to notify that Blood Cx drawn 08/26 @ 1828 from central line + MRSE. This note was completed by: Lisseth Palmer, RN Dominique Wright MD 08/29/2017 7:59 AM Signed ID BRIEF NOTE Blood cultures from line now growing MRSE from 3 sets. Previously only one set. 08/25: blood x 2 line and periphery MRSE + E faecalis (sensitive to ampicillin) 2/17: blood x 1 of 2 (central line) growing MRSE 08/28: blood x 2 NGTD Will need to cover both E faecalis and MRSE. Please change ampicillin to daptomycin 8 mg/kg daily. Patient reluctant to be on longer term vancomycin as she had renal issues with it previously. Dominique Wright MD August 29, 2017 8 a.m. Gael Simmons MD 08/29/2017 12:47 PM [facility] Progress Note PATIENT NAME: [...] staff, Dr Simmons SIGNATURE: [place] [id number] DATE of SERVICE: August 29, 2017 TIME of SERVICE: 10:48 AM [facility] STAFF PHYSICIAN NOTE OF PERSONAL INVOLVEMENT IN CARE I have reviewed the documentation obtained and documented by the team healthcare provider (fellow, resident, nurse practitioner or physician bankruptcy assistant) and I personally participated in the fernandes components. I have discussed the case and management of the patient's care and the note has been revised / addended to reflect my direct input. Cough with bloody tinged sputum today, concerning for DAH. CXR and monitor closely. MRSE from [facility], agree with ID will need to be removed. Appreciate ID support Gael Simmons MD FACP [facility] Medicine Staff PAGER: [phone] DATE of Service: 08/29/2017 TIME of Service: [...] abx. Samantha to be removed. Diarrhea improving. note from yesterday indicates some concern for [...] units SIGNATURE: Elsa Germain MS RDN-AP LD [facility] PATIENT NAME: Paloma Cannon DATE: August 30, 2017 TIME: 10:34 AM PAGER: [phone] Gael Simmons MD 08/30/2017 2:[address] [facility] Progress Note PATIENT NAME: [...] Liver Function, Amylase, AND Lipase Recent Labs 08/30/17 0323 08/29/17 0616 08/28/17 0428 TPROT 5.1* 5.3* 5.1* [...] staff, Dr Simmons SIGNATURE: [place] [id number] DATE of SERVICE: August 30, 2017 TIME of SERVICE: 12:16 PM [facility] STAFF PHYSICIAN NOTE OF PERSONAL INVOLVEMENT IN CARE I have reviewed the documentation obtained and documented by the team healthcare provider (fellow, resident, nurse practitioner or physician bankruptcy assistant) and I personally participated in the fernandes components. I have discussed the case and management of the patient's care and the note has been revised / addended to reflect my direct input. Samantha now out. Diarrhea resolving Need c/s from Basil Appreciate ID help Hemoptysis has resolved as well Gael Simmons MD FACP [facility] Medicine Staff PAGER: [phone] DATE of Service: 08/30/2017 TIME of Service: 2:20 PM Previous Version Alondra Campa, PT 08/30/2017 12:26 PM Signed Physical Therapy Evaluation SERVICE DATE: 08/30/2017 SERVICE TIME: 1151 to 1215 ROOM: [place] [address] Recommended Discharge Disposition: Home Recommended Discharge Equipment: [...] No Skilled Need Interventions Provided: Evaluation;Gait Training (49005) $ Evaluation-Low (73059) Billed Units: 1 unit Gait Training (61573) Treatment Minutes: 8 1 unit Skilled Intervention(s): [...] CODE: PT 6 Clicks Score: 24 (08/30/17 115) Mobility: Walking and Moving Around Current Status (G8978): (08/30/17 1151) Mobility: Walking and Moving Around Goal Status (G8979): (08/30/17 115) Mobility: Walking and Moving Around Discharge Status (G8980): (08/30/17 115) Based on clinical assessment and the score [...] Patient Lives With: Significant Other Assistance Available: PRN;multimedia educational specialist Entry To Home: No Stairs Number Of [...] 30, 2017 TIME: 12:22 PM PAGER/CONTACT #: [phone] Dominique Wright MD 08/30/2017 12:37 PM Signed [...] August 30, 2017 TIME: 1:17 PM PAGER: [phone] GHAZALA SINGH 08/30/2017 1:48 PM Signed PHARMACY WARFARIN EDUCATION Patient Name: Paloma Cannon Account #: Data Unavailable Admission Date: 08/25/2017 5:15 PM Date of Contact: August 30, 2017 Time of Contact: 1:46 PM Patient new to warfarin? No: Previous (home) dosage: warfarin 7.5 mg Sat and Sun; 5 mg Mon,, Wed, , Fri Outpatient follow-up plan: Follow-up with Physician: name: Dr. Guillaume Fuller' office ([facility] physician) with his MARKLOGIC DEVELOPER Magdalena Indication for warfarin: deep vein thrombosis (DVT) Target INR range: 2.0 - 3.0 (Target 2.5) Patient received full warfarin education (Please see previously documented note on 08/27/17). DAYSI GRULLON PHARMACIST [id number] Machelle Joshi PA-C 08/30/2017 1:54 PM Signed BRIEF OP NOTE LOG ID: [id number] Surgery/Procedure Date: 08/30/2017 Incision/Procedure Start Time: 1325 Incision Close/Procedure End Time: 1335 Surgeon(s)/Proceduralist(s) and Reprint Sorter(s): Machelle Joshi PA-C Procedure(s): Removal of samantha [...] 30, 2017 TIME: 1:48 PM PAGER/CONTACT #: [phone] Lourdes Stallworth, RN, RN 08/30/2017 6:24 PM Addendum Nursing Progress Note Patient Name: Paloma Cannon Patient Location: [place] [address] Daily Note: A blood culture ordered for [...] nephrotoxic agents - DVT (deep venous thrombosis) ([facility]) - Elevated CA-125 11/30/2013 244 - Essential hypertension 10/08/2015 Stable on home medications Plan: -continue to monitor on home meds - 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 Bivalirudin to Warfarin bridging - HIT (heparin-induced thrombocytopenia) ([facility]) - Nontoxic multinodular goiter - Obese [...] (FLONASE) 50 mcg/actuation nasal spray Use 1 [place] in each nostril once daily. warfarin (COUMADIN) [...] twice daily as needed. Miscellaneous Medical Supply [facility] package 30 - 40 mmHg pressure [...] CHLOR -- 106* 106* -- CO2 -- 22 22 -- BUN -- 8 10 -- CREAT [...] 31, 2017 TIME: 12:01 PM PAGER/CONTACT #: [phone] . Staff addendum: I interviewed and examined Paloma Cannon, and reviewed and confirmed the findings of the MARKLOGIC DEVELOPER with additional comments below. The assessment and plan was formulated in discussion with the patient and MARKLOGIC DEVELOPER, and is also outlined below. Yuan 27yo F well known to our service due to hx of APS with hx of prior VTE, on assisted anticoagulation with warfarin, and additional complications related [...] Version Gael Simmons MD 08/31/2017 1:05 PM [facility] Progress Note PATIENT NAME: [...] - Bival vs Fondaparinux - Consult to [facility] medicine ? Chronic Problems: 1. Anti-phospholipid Syndrome 2. Hypertension 3. HFpEF - f/u ECHO 4. Heparin-induced Thrombocytopenia 5. 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 GERD ? Other: Diet: Regular GI AND DVT Prophylaxis: warfarin PT/OT Disposition Recs: N/A Code Status: Full code ? Case to be discussed with staff, Dr Simmons SIGNATURE: [place] [id number] DATE of SERVICE: August 31, 2017 TIME of SERVICE: 12:46 PM [facility] STAFF PHYSICIAN NOTE OF PERSONAL INVOLVEMENT IN CARE I have reviewed the documentation obtained and documented by the team healthcare provider (fellow, resident, nurse practitioner or physician bankruptcy assistant) and I personally participated in the fernandes components. I have discussed the case and management of the patient's care and the note has been revised / addended to reflect my direct input. Jesus Alberto c/s positive, will need to be removed - we will schedule. Cont Dapto / Flagyl Appreciate [facility] med input, likely fondarinux SQ low dose for now. No further evidence of DAH Some joint pain she says occurred with BSI in the past Gael Simmons MD [facility] Medicine Staff PAGER: [phone] DATE of Service: 08/31/2017 TIME of Service: [...] Note Patient Name: Paloma Cannon Patient Location: [facility] Daily Note: 1230 report given to IR [...] by: Lourdes Stallworth RN Previous Version Eugenia Hart, RN, RN 08/31/2017 6:40 PM Signed PATIENT EDUCATION TOPIC: PROCEDURE / SURGERY: Pre Procedure Teaching: Logistics Protocols Complication Prevention Surgical Safety Principles PATIENT NAME: Paloma Cannon PATIENT LOCATION: [facility] READINESS TO LEARN COGNITIVE ABILITY: Alert and [...] August 31, 2017 TIME: 6:38 PM PAGER: [phone] Nicholas Gee III, MD 08/31/2017 7:44 PM [...] patient was brought to room 25, IR. [place] protocol performed. Subsequently, Removal of an indwelling [...] 31, 2017 TIME: 7:42 PM PAGER/CONTACT #: [phone] Dary Jimenes RN, RN 09/01/2017 9:18 AM [...] DC. TCC/SW to follow For W/E CM p#[phone] SIGNATURE: Dary Jimenes RN PATIENT NAME: Paloma Cannon DATE: September 01, 2017 TIME: 9:10 AM PAGER/CONTACT #: [phone] Gael Simmons MD 09/01/2017 11:[address] [facility] Progress Note PATIENT NAME: [...] vancomycin - CAPRICE Culture from Samantha and Ojhnny catheter - Both catheters removed Plan: - [...] staff, Dr Simmons SIGNATURE: [place] [id number] DATE of SERVICE: September 01, 2017 TIME of SERVICE: 11:19 AM [facility] STAFF PHYSICIAN NOTE OF PERSONAL INVOLVEMENT IN CARE I have reviewed the documentation obtained and documented by the team healthcare provider (fellow, resident, nurse practitioner or physician bankruptcy assistant) and I personally participated in the fernandes components. I have discussed the case and management of the patient's care and the note has been revised / addended to reflect my direct input. Jesus Alberto catheter out and she feels better Counts continue to fall Cont current abx ? New TAC early next week Gael Simmons MD FACP [facility] Medicine Staff PAGER: [phone] DATE of Service: 09/01/2017 TIME of Service: [...] HCT 24, PLTs 53 ?? Microbiology data: 2/23: blood x 2 NGTD 08/30: blood Jesus [...] Version Gael Simmons MD 09/02/2017 10:45 AM [facility] Progress Note PATIENT NAME: [...] 3 line cultures positive for MRSE (08/11 x2 and 07/11 x2/) Needs coverage for MRSE [...] staff, Dr Simmons SIGNATURE: [place] [id number] DATE of SERVICE: September 02, 2017 TIME of SERVICE: 10:20 AM [facility] STAFF PHYSICIAN NOTE OF PERSONAL INVOLVEMENT IN CARE I have reviewed the documentation obtained and documented by the team healthcare provider (fellow, resident, nurse practitioner or physician bankruptcy assistant) and I personally participated in the fernandes components. I have discussed the case and management of the patient's care and the note has been revised / addended to reflect my direct input. Clinically improving. No loose stools past 24 hours, joint pain controlled. Plan remains the same. Gael Simmons MD FACP [facility] Medicine Staff PAGER: [phone] DATE of Service: 09/02/2017 TIME of Service: 10:45 AM Previous Version Mitch Wallis OTR/L 09/02/2017 10:41 AM Signed Occupational Therapy Evaluation SERVICE DATE: 09/02/2017 SERVICE TIME: 1000 to 1030 ROOM: [place] [address] Recommended Discharge Disposition: Home Recommended Discharge Disposition [...] No Skilled Need Interventions Provided: Evaluation;Therapeutic Exercise (21449) $ Evaluation-Low (07680) Billed Units: 1 unit Therapeutic Exercise (24968) Treatment Minutes: 15 1 unit Skilled Intervention(s): Instruction in therapeutic exercise Alec UE AROM all planes instruction Verbal and tactile cuing provided min cues for follow through Education in cont AROM on own to maintain strength, pt able to demo HEP , goals met Total Timed Code Treatment Minutes: 15 Total Treatment Time (minutes): 30 FUNCTIONAL G CODE: OT 6 Clicks Score: 24 (09/02/17 1000) Self Care Current Status (G8987): (09/02/17 1000) Self Care Goal Status (G8988): [...] Patient Lives With: Significant Other Assistance Available: PRN;multimedia educational specialist Entry To Home: No Stairs Number Of [...] September 02, 2017 TIME: 10:38 AM PAGER: [phone] Shelia Oviedo, JEFF, RN 09/02/2017 3:42 PM Signed Nursing Progress Note Patient Name: Paloma Cannon Patient Location: G[address] 023/G081-23 Daily Note: 1540- Patient resting in bed, call light in reach. This note was completed by: JEFF Flowers MD 09/03/2017 1:35 PM [facility] Progress Note PATIENT NAME: Paloma Cannon Interval [...] Recs: N/A Code Status: Full code ? Veornica Ryan MD Internal Medicine PGY-3 Pager: [phone] 11:45 AM 09/03/2017 [facility] STAFF PHYSICIAN NOTE OF PERSONAL INVOLVEMENT IN CARE I have reviewed the documentation obtained and documented by the team healthcare provider (fellow, resident, nurse practitioner or physician bankruptcy assistant) and I personally participated in the fernandes components. I have discussed the case and management of the patient's care and the note has been revised / addended to reflect my direct input. Continues to do well, 2.23 c/s NGTD x2 plt ct has stabilized Plan is for new exchange line next week Gael Simmons MD [facility] Medicine Staff PAGER: [phone] DATE of Service: 09/03/2017 TIME of Service: 1:35 PM Previous Version Sanchez Walker RN, RN 09/04/2017 7:15 AM Signed Nursing Progress Note Patient Name: Paloma Cannon [address] Pt left arm cleaned per protocol, Ultrasound [...] to monitor. This note was completed by: JEFF Germain, 09/04/2017 11:22 AM Signed CARE MANAGEMENT PROGRESS NOTE SERVICE DATE: 09/04/2017 SERVICE TIME:11:11 LOS: 10 days IM letter given to patient on 09/04/2017. SIGNATURE: Hailey Cunningham, PATIENT NAME: Paloma Cannon DATE: September 04, 2017 TIME: 11:21 AM PAGER/CONTACT #: [phone] Paulette Naranjo CNP 09/04/2017 11:31 AM Addendum [...] 27 year old female well known to [facility] service for a hx of APS [...] had elevated renal function in the past [facility] follows her warfarin outpatient, will follow peripherally for now, please advise us 24 hrs prior to DC and can see and make DC recs SIGNATURE: Paulette Naranjo CNP PATIENT NAME: Paloma Cannon DATE: September 04, 2017 TIME: 11:23 AM PAGER/CONTACT #: [phone] . Previous Version Dominique Wright MD 09/04/2017 [...] a.m. Ignacio Novak MD 09/04/2017 11:58 AM [facility] Progress Note PATIENT NAME: [...] ? Emelia Liu MD PGY-1 Internal Medicine [id number] September 04, 2017 11:34 AM [facility] STAFF PHYSICIAN NOTE OF PERSONAL INVOLVEMENT IN CARE I have reviewed the progress note obtained and documented by the resident and I personally participated in the fenrandes components. I have discussed the case and [...] line placement. SIGNATURE: Ignacio Novak MD PAGER: [phone] DATE of SERVICE: September 04, 2017 TIME [...] Medicine PGY-3 Previous Version Anahi Mai DTR [facility] 09/04/2017 1:03 PM Signed NUTRITION THERAPY FOLLOW-UP [...] September 04, 2017 TIME: 1:00 PM PAGER: [phone] Denise Huffman RN, RN 09/04/2017 6:31 PM Signed Nursing Progress Note Topic of Note: Daily Note Paloma Cannon [id number] Patient to go to tomorrow for a samantha and tunneled dialysis catheter placement. No other issues noted at this time, will monitor. This note was completed by: Denise Huffman RN Progress Notes ([facility]): Magdalena Lewis CNP, CNP 08/21/2017 4:28 PM Signed INR today prior to PLEX was 1.5 Message left for patient to take 7.5mg x 2 days, followed by 5mg x 2 days then check INR on 08/25. Attempted to call Morteza (patient's ), phone was no longer in service Magdalena Lewis CNP PROGRESS Observed: 08/21/2017 Status: COMPLETED Source: [place] 4:09 PM [facility] REPOSITORY HNO ID: [id number] Author: Lisseth Claudio MD Service: (none) Author [...] Diagnosis: CAPS Primary Service/Physician: Hematology: Dr. Bessy Anudjar Treatment performed at Apheresis Unit (CA 2). [...] port Return: blue port Medications given: See [facility] audit report. Volume treated: 6563 ml whole blood Volume removed: 6563 ml plasma Volume replaced: 1000 ml NSS and 1545 ml FFP [id number] ACD used 676 ml. 10% calcium gluconate [...] Verdin RN Signed by: Carmita Verdin RN [facility] STAFF PHYSICIAN NOTE OF PERSONAL INVOLVEMENT [...] MD August 21, 2017 4:46 PM Pager: [phone] PROGRESS Observed: 08/21/2017 Status: COMPLETED Source: [place] 3:15 PM [facility] REPOSITORY HNO ID: [id number] Author: Elsa Mello (Coord) Service: (none) Author Type: Workday Director Type: Progress Notes Filed: 08/21/2017 3:15 PM Note Text: Patient had appointments today at [facility]. I provided a parking pass. Adriana Mello Patient Professor Of Violin [facility] [phone] / [id number] FACTOR VIII:C ASSAY Collected: 08/21/2017 Status: F Source: [place] 1:17 PM [facility] REPOSITORY TYPE CODE TESTS RESULT OUT [...] months. Performed By: #### FVIIIC, LUPUSP #### [facility] [address] [place] [id number] LUPUS ANTICOAG PANEL Collected: 08/21/2017 Status: F Source: [place] 1:17 PM [facility] REPOSITORY TYPE CODE TESTS RESULT OUT OF RANGE REFERENCE UNITS LAB PSEC 9.7-13.0 sec High PT Sec 15.3 LAB INR 0.9-1.3 High PT INR 1.5 Result Comment: Vitamin K Antagonist (VKA) Therapeutic Range: INR 2 to 3 (Target INR of 2.5) Note: For patients treated with VKA drugs, such as warfarin, the [place] 2012 Guideline recommends [...] Chest 2012, 141:7S-47S Diogenes RA, et al. [facility] 2017, 70: 252-289 LAB APTT 23.0-32.4 sec [...] titer. Performed By: #### FVIIIC, LUPUSP #### [facility] [address] [place], [place] [address] CBC AND DIFFERENTIAL Collected: 08/21/2017 Status: F Source: [place] 1:16 PM [facility] REPOSITORY TYPE CODE TESTS RESULT OUT [...] Abs 0.20 Low Lymph LAB AMONO % Owen% 8.7 LAB AAMONO <0.87 k/uL Abs 0.28 Owen LAB AEOS % 3.1 Eosin% LAB AAEOS <0.46 k/uL Abs 0.10 Eosin LAB ABASO % Baso% 1.2 LAB AABASO <0.11 k/uL Abs 0.04 Baso LAB AUNRBC 0 /100 WBC NRBCs 0.0 LAB ABNRBC <0.01 k/uL <0.01 Absolute nRBC LAB DTYP DTYPE Auto Diff Performed By: #### CBCDIF, CMP #### [facility] [address] [place], [place] [address] COMP METABOLIC PANEL Collected: 08/21/2017 Status: F Source: [place] 1:16 PM [facility] REPOSITORY TYPE CODE TESTS RESULT OUT OF REFERENCE UNITS RANGE LAB TP 6.3-8.0 g/dL Low Protein, Total 5.9 LAB ALB 3.9-4.9 g/dL Low Albumin 3.6 LAB CA 8.5-10.2 mg/dL Calcium, Total 8.6 LAB TBIL 0.2-1.3 mg/dL Bilirubin, Total 0.7 LAB ALKP 32-117 U/L Alkaline Phosphatase 61 LAB AST 13-35 U/L AST 15 LAB GLU 74-99 mg/dL Glucose 99 Result Comment: The [place] [employer] (ADA) provides guidance for cutoff [...] Standards of Medical Care in Diabetes 2016, [place] [employer]. Diabetes Care. 2016.39(Suppl 1). LAB [...] GFR. Performed By: #### CBCDIF, CMP #### [facility] [address] [place] [address] CNOVSP Observed: 08/21/2017 Status: COMPLETED Source: [place] 12:30 PM [facility] REPOSITORY Visit (SP) Office ([facility]) PALOMA MARTINEZ Lauren ([id number]) 1990 F PTR Date Time Provider Department 08/21/17 12:30 PM [facility]IS D[facility]K [facility] During your visit today, we recorded the [...] port Return: blue port Medications given: See [facility] audit report. Volume treated: 6563 ml whole blood Volume removed: 6563 ml plasma Volume replaced: 1000 ml NSS and 1545 ml FFP [id number] ACD used 676 ml. 10% calcium gluconate [...] Verdin RN Signed by: Carmita Verdin RN [facility] STAFF PHYSICIAN NOTE OF PERSONAL INVOLVEMENT [...] MD August 21, 2017 4:46 PM Pager: [phone] Referring Provider: LISSETH CLAUDIO [[id number]] Allergies As of Date: 08/21/2017 Noted Allergy [...] Plasmapheresis [1323] Primary Visit Diagnosis:APS (antiphospholipid syndrome) ([facility]) [D68.61] Order(s):LUPUS ANTICOAG PL [SQLUPUSP] Order #: [id number]. #:[id number] CBC + DIFF [SQCBCDIF] Order #: [id number]. #:[id number] COMP METABOLIC PANEL [SQCMP] Order #: [id number]. #:[id number] [facility] NURSING COMMUNICATION [[id number]] Order #: [id number]: 1 TREATMENT PARAMETERS [[id number]] Order #: [id number]: 1 [facility] NURSING COMMUNICATION [[id number]] Order #: [id number]: 1 STANDING [] diphenhydrAMINE 50 mg injection [...] daily. FLUTICASONE 50 MCG/ACTUATION * Use 1 Oakwood in each nostril o* WARFARIN 5 MG [...] 08/21/17 HOSP Observed: 08/21/2017 Status: COMPLETED Source: [place] 12:00 AM [facility] REPOSITORY Patient Update ([facility]) PALOMA MARTINEZ ([id number]) 1990 F [facility] Date Time Provider Department 08/21/17 ELSA MELLO (COORD) [facility] During your visit today, we recorded the following information about you: Elsa Mello, Coord 08/21/2017 3:15 PM Signed Patient had appointments today at [facility]. I provided a parking pass. Adriana Mello Patient Professor Of Violin [facility] [phone] / [phone] Allergies As of Date: 08/21/2017 Noted Allergy [...] daily. FLUTICASONE 50 MCG/ACTUATION * Use 1 Oakwood in each nostril o* WARFARIN 5 MG [...] 08/16/2017 Status: F Source: [place] 8:20 AM [facility] REPOS[facility] Order Comment: MEDOUT/PORT DRAW TYPE CODE TESTS RESULT OUT OF REFERENCE UNITS RANGE LAB L300.4150 11.7-14.9 SECONDS High PROTIME 37.8 LAB L300.4200 High alert INR 4.0 Result Comment: CRITICAL VALUE VERIFIED. CALLED TO NADINE PATEL 08/16/17 0915 Zhou R Stoner. RESULTS READ BACK BY SAME. Performed By: #### L300.3900 #### [facility] [address] [place], [address] PROTHROMBIN TIME W/INR Collected: 08/11/2017 Status: F Source: [place] 8:55 AM [facility] REPOSIT[facility] Order Comment: Order Date: 08/11/17 Comments: FAX RESULTS TO Giacomo LEWIS [phone] TYPE CODE TESTS RESULT OUT OF RANGE REFERENCE UNITS LAB L300.4150 11.7-14.9 SECONDS High PROTIME 29.9 LAB L300.4200 Normal INR 3.0 Performed By: #### L300.3900 #### [facility] [address] [place], [address] PROGRESS Observed: 08/10/2017 Status: COMPLETED Source: [place] 2:01 PM [facility] REPOSITORY HNO ID: [id number] Author: Kem Andujar Service: (none) Author Type: [...] (FLONASE) 50 mcg/actuation nasal spray Use 1 Oakwood in each nostril once daily. warfarin (COUMADIN) [...] is less than 120/80. Miscellaneous Medical Supply [facility] package 30 - 40 mmHg pressure [...] PM PROGRESS Observed: 08/07/2017 Status: COMPLETED Source: [place] 3:40 PM [facility] REPOSITORY HNO ID: [id number] Author: Elsa Mello (Coord) Service: (none) Author Type: Workday Director Type: Progress Notes Filed: 08/10/2017 3:40 PM Note Text: Patient had appointments today at [facility]. I provided a parking pass. Adriana Funmilayo Patient Professor Of Violin [facility] [phone] / [phone] PROGRESS Observed: 08/07/2017 Status: COMPLETED Source: [place] 12:58 PM [facility] REPOSITORY HNO ID: [id number] Author: Lisseth Claudio MD Service: (none) Author Type: Physician Type: Progress Notes Filed: 08/07/2017 3:50 PM Note Text: APHERESIS THERAPEUTIC PLASMAPHERESIS PATIENT NAME: Paloma Cannon : 1990 AGE:[age] year old Gender: female Treatment #: 82 Diagnosis: Antiphospholipid antibody syndrome Primary Service/Physician: Hematology: Dr. Bessy Andujar Treatment performed at [facility] ([facility] [facility]). Patient arrived by chair and with [...] indwelling and blue port Medications given: See [facility] audit report. Volume treated: 7995 ml whole [...] 2 weeks Signed by: Angella Ortiz RN [facility] STAFF PHYSICIAN NOTE OF PERSONAL INVOLVEMENT [...] MD August 07, 2017 3:49 PM Pager: [phone] CBC AND DIFFERENTIAL Collected: 08/07/2017 Status: F Source: [place] 12:57 PM [facility] REPOSITORY TYPE CODE TESTS RESULT [...] Low Abs Lymph 0.14 LAB AMONO % Owen% 6.2 LAB AAMONO <0.87 k/uL Abs Owen 0.35 LAB AEOS % Eosin% 1.2 LAB AAEOS <0.46 k/uL Abs Eosin 0.07 LAB ABASO % Baso% 0.5 LAB AABASO <0.11 k/uL Abs Baso 0.03 LAB AUNRBC 0 /100 WBC NRBCs 0.0 LAB ABNRBC <0.01 k/uL Absolute nRBC <0.01 LAB DTYP DTYPE Auto Diff Performed By: #### CBCDIF, CMP, PT #### [facility] [address] [place], [place] [address] COMP METABOLIC PANEL Collected: 08/07/2017 Status: F Source: [place] 12:57 PM [facility] REPOSITORY TYPE CODE TESTS RESULT OUT OF REFERENCE UNITS RANGE LAB TP 6.3-8.0 g/dL Protein, Total 6.4 LAB ALB 3.9-4.9 g/dL Albumin 4.0 LAB CA 8.5-10.2 mg/dL Calcium, Total 9.1 LAB TBIL 0.2-1.3 mg/dL Bilirubin, Total 0.5 LAB ALKP 32-117 U/L Alkaline Phosphatase 63 LAB AST 13-35 U/L AST 17 LAB GLU 74-99 mg/dL Glucose 96 Result Comment: The [place] Diabetes Association (ADA) provides guidance for cutoff [...] Standards of Medical Care in Diabetes 2016, [place] [employer]. Diabetes Care. 2016.39(Suppl 1). LAB [...] Performed By: #### CBCDIF, CMP, PT #### [facility] [address] [place], [place] [address] PROTIME Collected: 08/07/2017 Status: F Source: [place] 12:57 PM [facility] REPOSITORY TYPE CODE TESTS RESULT OUT OF RANGE REFERENCE UNITS LAB PSEC 9.7-13.0 sec High PT Sec 29.7 LAB INR 0.9-1.3 High PT INR 3.1 Result Comment: Vitamin K Antagonist (VKA) Therapeutic Range: INR 2 to 3 (Target INR of 2.5) Note: For patients treated with VKA drugs, such as warfarin, the [place] [employer]icians 2012 Guideline recommends [...] 2.5 to 3.5 (target INR of 3). Guniecytt GH, et al. Chest 2012, 141:7S-47S Diogenes RA, et al. [facility] 2017, 70: 252-289 Performed By: #### CBCDIF, CMP, PT #### [facility] [address] [place] [id number] CNOVSP Observed: 08/07/2017 Status: COMPLETED Source: [place] 12:30 PM [facility] REPOSITORY Visit (SP) Office ([facility]) NELLI PALOMA CANNON ([id number]) 1990 F PTR Date Time Provider Department 08/07/17 12:30 PM [facility]IS DAREK [facility]IN [facility] During your visit today, we recorded the [...] indwelling and blue port Medications given: See [facility] audit report. Volume treated: 7995 ml whole [...] 2 weeks Signed by: Angella Ortiz RN [facility] STAFF PHYSICIAN NOTE OF PERSONAL INVOLVEMENT [...] MD August 07, 2017 3:49 PM Pager: [phone] Referring Provider: LISSETH CLAUDIO [[id number]] Allergies As of Date: 08/07/2017 Noted Allergy [...] enzymes Date Reviewed: 08/07/2017 Reviewed by: Angella SanchezRn) JEFF Ortiz - Fully Assessed Reason for Visit: Plasmapheresis [1323] Primary Visit Diagnosis:APS (antiphospholipid syndrome) ([facility]) [D68.61] Order(s):PROTHROMBIN TIME/PT [SQPT] Order #: [id number]. #:[id number] CBC + DIFF [SQCBCDIF] Order #: [id number]. #:[id number] COMP METABOLIC PANEL [SQCMP] Order #: [id number]. #:[id number] [facility] NURSING COMMUNICATION [[id number]] Order #: [id number]: 1 TREATMENT PARAMETERS [[id number]] Order #: [id number]: 1 [facility] NURSING COMMUNICATION [[id number]] Order #: [id number]: 1 STANDING [] diphenhydrAMINE 50 mg injection [...] daily. FLUTICASONE 50 MCG/ACTUATION * Use 1 Oakwood in each nostril o* WARFARIN 5 MG [...] Status:Closed by LISSETH CLAUDIO MD on 08/07/17 BELEN Observed: 08/07/2017 Status: COMPLETED Source: [place] 12:30 PM [facility] REPOSITORY Visit (SP) Office ([facility]) PALOMA MARTINEZ ([id number]) 1990 F PTR Date Time Provider Department 08/07/17 12:30 PM KEM ANDUJAR During your visit today, we recorded the [...] (FLONASE) 50 mcg/actuation nasal spray Use 1 Oakwood in each nostril once daily. warfarin (COUMADIN) [...] your blood pressure is less than 120/80. Symptom.ly [facility] package 30 - 40 mmHg pressure [...] 2017 2:05 PM Referring Provider: KEM ANDUJAR [[id number]] Allergies As of Date: 08/07/2017 Noted Allergy [...] Angella (Rn) JEFF Ortiz - Fully Assessed Primary Visit [...] daily. FLUTICASONE 50 MCG/ACTUATION * Use 1 Oakwood in each nostril o* WARFARIN 5 MG [...] 08/10/17 HOSP Observed: 08/07/2017 Status: COMPLETED Source: [place] 12:00 AM [facility] REPOSITORY Patient Update ([facility]) PALOMA MARTINEZ ([id number]) 1990 F [facility] Date Time Provider Department 08/07/17 ELSA MELLO (COORD) [facility] During your visit today, we recorded the following information about you: Capri Sandhu 08/10/2017 3:40 PM Signed Patient had appointments today at [facility]. I provided a parking pass. Adriana Mello Patient Professor Of Violin [facility] [place] [phone] / [phone] Allergies As of Date: 08/07/2017 [...] Assessed Reason for Visit: Cancer Patient Support [3832] Prescriptions as of 08/07/2017 Sig: CYCLOPHOSPHAMIDE 50 [...] daily. FLUTICASONE 50 MCG/ACTUATION * Use 1 Oakwood in each nostril o* WARFARIN 5 MG [...] 08/04/2017 Status: F Source: [place] 8:05 AM [facility] Order Comment: MEDOUT/IVT PORT TYPE CODE TESTS RESULT OUT OF RANGE REFERENCE UNITS LAB L300.4150 11.7-14.9 SECONDS High PROTIME 32.3 LAB L300.4200 Normal INR 3.3 Performed By: #### L300.3900 #### [facility] [address] [place], [address] PROTHROMBIN TIME W/INR Collected: 07/28/2017 Status: F Source: [place] 8:10 AM [facility] Order Comment: Order Date: 07/28/17 Comments: FAX RESULTS TO ELLIOTT CORDON AT [phone] TYPE CODE TESTS RESULT OUT OF RANGE REFERENCE UNITS LAB L300.4150 11.7-14.9 SECONDS High PROTIME 22.1 LAB L300.4200 Normal INR 2.0 Performed By: #### L300.3900 #### [facility] [address] [place], [address] PROGRESS Observed: 07/24/2017 Status: COMPLETED Source: [place] 2:14 PM [facility] REPOSITORY HNO ID: [id number] Author: Elsa Mello (Coord) Service: (none) Author Type: Workday Director Type: Progress Notes Filed: 08/04/2017 2:15 PM Note Text: Patient had appointments today at [facility]. I provided a parking pass. Adriana Mello Patient Professor Of Violin [facility] [phone] CBC AND DIFFERENTIAL Collected: 07/24/2017 Status: F Source: [place] 1:30 PM [facility] REPOSITORY TYPE CODE TESTS RESULT OUT [...] Abs 0.34 Low Lymph LAB AMONO % Owen% 4.6 LAB AAMONO <0.87 k/uL Abs 0.31 Owen LAB AEOS % 5.1 Eosin% LAB AAEOS <0.46 k/uL Abs 0.34 Eosin LAB ABASO % Baso% 0.3 LAB AABASO <0.11 k/uL Abs <0.03 Baso LAB AUNRBC 0 /100 WBC NRBCs 0.0 LAB ABNRBC <0.01 k/uL <0.01 Absolute nRBC LAB DTYP DTYPE Auto Diff Performed By: #### CBCDIF, CMP #### [facility] [address] [place], [place] [address] COMP METABOLIC PANEL Collected: 07/24/2017 Status: F Source: [place] 1:30 PM [facility] REPOSITORY TYPE CODE TESTS RESULT OUT OF REFERENCE UNITS RANGE LAB TP 6.3-8.0 g/dL Low Protein, Total 5.4 LAB ALB 3.9-4.9 g/dL Low Albumin 3.6 LAB CA 8.5-10.2 mg/dL Calcium, Total 9.0 LAB TBIL 0.2-1.3 mg/dL Bilirubin, Total 0.9 LAB ALKP 32-117 U/L Alkaline Phosphatase 53 LAB AST 13-35 U/L AST 16 LAB GLU 74-99 mg/dL Glucose High 114 Result Comment: The [place] Diabetes Association (ADA) provides guidance for cutoff [...] Standards of Medical Care in Diabetes 2016, [place] [employer]. Diabetes Care. 2016.39(Suppl 1). LAB [...] GFR. Performed By: #### CBCDIF, CMP #### [facility] [address] [place] [id number] LUPUS ANTICOAG PANEL Collected: 07/24/2017 Status: F Source: [place] 1:30 PM [facility] [place] REPOSITORY TYPE CODE TESTS RESULT OUT OF RANGE REFERENCE UNITS LAB PSEC 9.7-13.0 sec High PT Sec 28.7 LAB INR 0.9-1.3 High PT INR 3.0 Result Comment: Vitamin K Antagonist (VKA) Therapeutic Range: INR 2 to 3 (Target INR of 2.5) Note: For patients treated with VKA drugs, such as warfarin, the [place] [employer]icians 2012 Guideline recommends [...] Chest 2012, 141:7S-47S Diogenes RESENDIZ et al. [facility] 2017, 70: 252-289 LAB APTT 23.0-32.4 sec [...] has had numerous lupus anticoagulant panels since 2013 and is followed for a diagnosis of [...] Positive These results were obtained with the Xquva QUANTA Lite B2 GPI IgM JESSICA. B2 GPI IgM values obtained with different manufacturers' assay methods may not be used interchangeably. The magnitude of the repo rted IgM levels cannot be correlated to an endpoint titer. Performed By: #### LUPUSP #### [facility] [address] [place], [place] [address] PROGRESS Observed: 07/24/2017 Status: COMPLETED Source: [place] 1:17 PM [facility] REPOSITORY HNO ID: [id number] Author: Lisseth Claudio MD Service: (none) Author [...] line and blue port Medications given: See [facility] audit report. Volume treated: 7267 ml whole [...] oral fluids Signed by: Lou Juarez RN [facility] STAFF PHYSICIAN NOTE OF PERSONAL INVOLVEMENT [...] MD July 24, 2017 4:58 PM Pager: [phone] CNOVSP Observed: 07/24/2017 Status: COMPLETED Source: [place] 12:30 PM [facility] REPOSITORY Visit (SP) Office ([facility]) RICKEYRADHAMELISSA PALOMA CANNON ([id number]) 1990 F PTR Date Time Provider Department 07/24/17 12:30 PM [facility]IS DAREK [facility]IN [facility] During your visit today, we recorded the [...] line and blue port Medications given: See [facility] audit report. Volume treated: 7267 ml whole [...] oral fluids Signed by: Lou Juarez RN [facility] STAFF PHYSICIAN NOTE OF PERSONAL INVOLVEMENT [...] MD July 24, 2017 4:58 PM Pager: [phone] Referring Provider: LISSETH CLAUDIO [[id number]] Allergies As of Date: 07/24/2017 Noted Allergy [...] Plasmapheresis [1323] Primary Visit Diagnosis:APS (antiphospholipid syndrome) ([facility]) [D68.61] Order(s):LUPUS ANTICOAG PL [SQLUPUSP] Order #: [id number]. #:[id number] CBC + DIFF [SQCBCDIF] Order #: [id number]. #:[id number] COMP METABOLIC PANEL [SQCMP] Order #: [id number]. #:[id number] [facility] NURSING COMMUNICATION [[id number]] Order #: [id number]: 1 TREATMENT PARAMETERS [[id number]] Order #: [id number]: 1 [facility] NURSING COMMUNICATION [[id number]] Order #: [id number]: 1 STANDING [] diphenhydrAMINE 50 mg injection [...] daily. FLUTICASONE 50 MCG/ACTUATION * Use 1 Oakwood in each nostril o* WARFARIN 5 MG [...] Priority: D More... DVT (deep venous thrombosis) ([facility]) [I82.409] INVALID FOR*01/11/2017 Priority: D More... Iron deficiency anemia [D50.9] INVALID FOR*01/11/2017 Priority: F More... Productive cough, hemoptysis [R04.2] INVALID FOR*01/04/2017 Priority: B Community acquired pneumonia [J18.9] INVALID FOR*01/11/2017 Respiratory failure with hypoxia ([facility]) [J96.91] INVALID FOR*01/11/2017 Priority: B More... SOB (shortness of breath) [R06.02] INVALID FOR*12/28/2016 HTN (hypertension) [I10] INVALID FOR* Priority: E More... CAPRICE (acute kidney injury) ([facility]) [N17.9] INVALID FOR* Priority: B More... [...] 07/24/17 HOSP Observed: 07/24/2017 Status: COMPLETED Source: [place] 12:00 AM [facility] REPOSITORY Patient Update ([facility]) PALOMA MARTINEZ ([id number]) 1990 F PTR Date Time Provider Department 07/24/17 ELSA MLELO (COORD) [facility] During your visit today, we recorded the following information about you: Capri Sandhu 08/04/2017 2:15 PM Signed Patient had appointments today at [facility]. I provided a parking pass. Adriana Mello Patient Professor Of Violin [facility] [place] [phone] / [phone] Allergies As of Date: 07/24/2017 [...] Assessed Reason for Visit: Cancer Patient Support [9014] Prescriptions as of 07/24/2017 Sig: CYCLOPHOSPHAMIDE 50 [...] daily. FLUTICASONE 50 MCG/ACTUATION * Use 1 Oakwood in each nostril o* WARFARIN 5 MG [...] 07/21/2017 Status: F Source: [place] 8:00 AM [facility] Order Comment: MEDOUT/PORT TYPE CODE TESTS RESULT OUT OF RANGE REFERENCE UNITS LAB L300.4150 11.7-14.9 SECONDS High PROTIME 25.6 LAB L300.4200 Normal INR 2.5 Performed By: #### L300.3900 #### [facility] [address], [address] PROTHROMBIN TIME W/INR Collected: 07/14/2017 Status: F Source: [place] 8:15 AM [facility] Order Comment: MEDOUT/PORT TYPE CODE TESTS RESULT OUT OF RANGE REFERENCE UNITS LAB L300.4150 11.7-14.9 SECONDS High PROTIME 23.1 LAB L300.4200 Normal INR 2.1 Performed By: #### L300.3900 #### [facility] [address] [place], [address] URINALYSIS Collected: 07/11/2017 Status: F Source: [place] 4:10 PM [facility] REPOSITORY TYPE CODE TESTS RESULT OUT OF RANGE REFERENCE UNITS LAB UCOL Yellow Color Yellow LAB [facility] Clear Clarity Clear LAB UGLUC Negative mg/dL Glucose, Urine Negative LAB UBIL Negative Bilirubin, Urine Negative LAB UKET Negative Ketones, Urine Negative LAB US[facility] 1.005-1.030 Specific [place], Ur 1.026 LAB UHGB Negative Hemoglobin/Blood, Negative [...] preservative tube. Performed By: #### UA #### [facility] [address] [place] [place], [place] [address] PROGRESS Observed: 07/11/2017 Status: COMPLETED Source: [place] 3:37 PM [facility] REPOSITORY HNO ID: [id number] Author: Elsa Mello (Coord) Service: (none) Author Type: Workday Director Type: Progress Notes Filed: 07/11/2017 3:37 PM Note Text: Patient had appointments today at [facility]. I provided a parking pass. Adriana Mello Patient Professor Of Violin [facility] [phone] / [phone] PROGRESS Observed: 07/11/2017 Status: COMPLETED Source: [place] 2:48 PM [facility] REPOSITORY HNO ID: [id number] Author: Willie Sauer) JEFF Avery Service: (none) Author Type: Registered Nurse Type: [...] RN PROGRESS Observed: 07/11/2017 Status: COMPLETED Source: [place] 1:05 PM [facility] REPOSITORY HNO ID: [id number] Author: Lisseth Claudio MD Service: (none) Author [...] present and patency confirmed. Medications given: See [facility] audit report. Volume treated: 7076 ml whole [...] oral fluids Signed by: Willie Avery RN [facility] STAFF PHYSICIAN NOTE OF PERSONAL INVOLVEMENT [...] MD July 11, 2017 3:22 PM Pager: [phone] COMP METABOLIC PANEL Collected: 07/11/2017 Status: F Source: [place] 12:37 PM [facility] [place] REPOSITORY TYPE CODE TESTS RESULT OUT OF REFERENCE UNITS RANGE LAB TP 6.3-8.0 g/dL Protein, Total 6.5 LAB ALB 3.9-4.9 g/dL Albumin 4.2 LAB CA 8.5-10.2 mg/dL Calcium, Total 8.9 LAB TBIL 0.2-1.3 mg/dL Bilirubin, Total 0.7 LAB ALKP 32-117 U/L Alkaline Phosphatase 80 LAB AST 13-35 U/L AST 16 LAB GLU 74-99 mg/dL Glucose High 121 Result Comment: The [place] [employer] (ADA) provides guidance for cutoff [...] Standards of Medical Care in Diabetes 2016, [place] [employer]. Diabetes Care. 2016.39(Suppl 1). LAB [...] Performed By: #### CMP, CBCDIF, PT #### [facility] [address] [place] [address] CBC AND DIFFERENTIAL Collected: 07/11/2017 Status: F Source: [place] 12:37 PM [facility] REPOSITORY TYPE CODE TESTS RESULT [...] Abs Lymph 0.60 Low LAB AMONO % Owen% 3.0 LAB AAMONO <0.87 k/uL Abs Owen 0.60 LAB AEOS % Eosin% 0.0 LAB [...] Performed By: #### CMP, CBCDIF, PT #### [facility] [address] [place], [place] [address] PROTIME Collected: 07/11/2017 Status: F Source: [place] 12:37 PM [facility] REPOSITORY TYPE CODE TESTS RESULT OUT OF RANGE REFERENCE UNITS LAB PSEC 9.7-13.0 sec High PT Sec 17.6 LAB INR 0.9-1.3 High PT INR 1.8 Result Comment: Vitamin K Antagonist (VKA) Therapeutic Range: INR 2 to 3 (Target INR of 2.5) Note: For patients treated with VKA drugs, such as warfarin, the [place] [employer] 2012 Guideline recommends [...] Chest 2012, 141:7S-47S Diogenes RA, et al. [facility] 2017, 70: 252-289 Performed By: #### CMP, CBCDIF, PT #### [facility] [address] [place], [place] [address] CNOVSP Observed: 07/11/2017 Status: COMPLETED Source: [place] 12:30 PM [facility] REPOSITORY Visit (SP) Office ([facility]) NELLI PALOMA CANNON ([id number]) 1990 F [facility] Date Time Provider Department 07/11/17 12:30 PM [facility] MAIN [facility] During your visit today, we recorded the [...] Bessy Andujar Treatment performed at Apheresis Unit (WI 2). Patient arrived by chair and with [...] present and patency confirmed. Medications given: See [facility] audit report. Volume treated: 7076 ml whole [...] oral fluids Signed by: Willie Avery RN [facility] STAFF PHYSICIAN NOTE OF PERSONAL INVOLVEMENT [...] MD July 11, 2017 3:22 PM Pager: [phone] Willie Avery RN, RN 07/14/2017 8:38 AM [...] Willie Avery RN Referring Provider: LISSETH CLAUDIO [[id number]] Allergies As of Date: 07/11/2017 Noted Allergy [...] (antiphospholipid syndrome) (HCC) [D68.61] Order(s):[facility] NURSING COMMUNICATION [[id number]] Order #: [id number]: 1 TREATMENT PARAMETERS [[id number]] Order #: [id number]: 1 [facility] NURSING COMMUNICATION [[id number]] Order #: [id number]: 1 STANDING [] diphenhydrAMINE 50 mg injection (BENADRYL)Disp: Rfl: [] hydrocortisone sodium succinate (PF) 100 mg injection (Solu-CORTEF)Disp: Rfl: [] calcium gluconate 3 g in NaCl 0.9% 1,000 mLDisp: Rfl: [] albumin (5%) 50 g infusionDisp: Rfl: citrate dextrose solution (ACD-A) infusionDisp: Rfl: 0.9% NaCl 10-20 mLDisp: Rfl: sodium citrate 4% 3-6 mL catheter lockDisp: Rfl: PROTHROMBIN TIME/PT [SQPT] Order #: [id number]. #:[id number] CBC + DIFF [SQCBCDIF] Order #: [id number]. #:[id number] COMP METABOLIC PANEL [SQCMP] Order #: [id number]. #:[id number] [] alteplase (CATHFLO) injection 2 mgDisp: Rfl: [...] daily. FLUTICASONE 50 MCG/ACTUATION * Use 1 Oakwood in each nostril o* WARFARIN 5 MG [...] 07/14/17 HOSP Observed: 07/11/2017 Status: COMPLETED Source: [place] 12:00 AM [facility] REPOSITORY Patient Update ([facility]) PALOMA MARTINEZ ([id number]) 1990 F PTR Date Time Provider Department 07/11/17 ELSA MELLO) [facility] During your visit today, we recorded the following information about you: Capri Sandhu 07/11/2017 3:37 PM Signed Patient had appointments today at [facility]. I provided a parking pass. 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 FLUTICASONE 50 MCG/ACTUATION * Use 1 Oakwood in each nostril o* WARFARIN 5 MG [...] TIME W/INR Collected: 07/07/2017 Status: F Source: [place] 8:20 AM [facility] Order Comment: MEDOUT/PORT TYPE CODE TESTS RESULT OUT OF REFERENCE UNITS RANGE LAB L300.4150 11.7-14.9 SECONDS High PROTIME 40.9 LAB L300.4200 High alert INR 4.5 Result Comment: CRITICAL VALUE VERIFIED. FAXED TO [facility]ULAR [facility]. [phone] 07/07/17 0843 Nathalia Jones. Performed By: #### L300.3900 #### [facility] [address] [place], [address] OBSOLETE Observed: 07/06/2017 Status: COMPLETED Source: [place] 12:00 AM [facility] REPOSITORY Refill (MICHAEL) PALOMA MARTINEZ ([id number]) 1990 F PTR Date Time Provider Department [...] daily. FLUTICASONE 50 MCG/ACTUATION * Use 1 Oakwood in each nostril o* WARFARIN 5 MG [...] TIME W/INR Collected: 06/30/2017 Status: F Source: [place] 8:25 AM [facility] Order Comment: MEDOUT/PORT TYPE CODE TESTS RESULT OUT OF RANGE REFERENCE UNITS LAB L300.4150 11.7-14.9 SECONDS High PROTIME 20.5 LAB L300.4200 Normal INR 1.8 Performed By: #### L300.3900 #### [facility] [address] [place], [address] PROGRESS Observed: 06/27/2017 Status: COMPLETED Source: [place] 2:36 PM CLINIC MAIN [place] REPOSITORY HNO ID: [id number] Author: Orin (Rn) JEFF Lares Service: (none) [...] (FLONASE) 50 mcg/actuation nasal spray Use 1 Oakwood in each nostril once daily. warfarin (COUMADIN) [...] your blood pressure is less than 120/80. [employer] mis 1 package 30 - 40 mmHg pressure [...] PM PROGRESS Observed: 06/27/2017 Status: COMPLETED Source: [place] 1:39 PM [facility] MAIN [place] REPOSITORY HNO ID: [id number] Author: Elsa Mello (Coord) Service: (none) Author Type: Workday Director Type: Progress Notes Filed: 07/07/2017 1:39 PM Note Text: Patient had appointments today at [facility]. I provided a parking pass. 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 Volume treated: 7027 ml whole [...] oral fluids. Signed by: Carmita Verdin RN [facility] STAFF PHYSICIAN NOTE OF PERSONAL INVOLVEMENT [...] MD June 27, 2017 4:55 PM Pager: [phone] CBC AND DIFFERENTIAL Collected: 06/27/2017 Status: F Source: [place] 12:58 PM [facility] MAIN [place] REPOSITORY TYPE CODE TESTS RESULT OUT OF [...] Abs Low Lymph 0.55 LAB AMONO % Owen% 4.0 LAB AAMONO <0.87 k/uL Abs Owen 0.43 LAB AEOS % Eosin% 0.5 LAB AAEOS <0.46 k/uL Abs Eosin 0.05 LAB ABASO % Baso% 0.5 LAB AABASO <0.11 k/uL Abs Baso 0.05 LAB AUNRBC 0 /100 WBC NRBCs 0.0 LAB ABNRBC <0.01 k/uL Absolute nRBC <0.01 LAB DTYP DTYPE Auto Diff Performed By: #### CBCDIF, CMP #### [facility] [address] [place], [place] [address] COMP METABOLIC PANEL Collected: 06/27/2017 Status: F Source: [place] 12:58 PM [facility] REPOSITORY TYPE CODE TESTS RESULT [...] mg/dL Glucose High 142 Result Comment: The [place] [employer] (ADA) provides guidance for cutoff [...] Standards of Medical Care in Diabetes 2016, [place] [employer]. Diabetes Care. 2016.39(Suppl 1). LAB [...] GFR. Performed By: #### CBCDIF, CMP #### [facility] [address] [place] [id number] FACTOR VIII:C ASSAY Collected: 06/27/2017 Status: F Source: [place] 12:58 PM [facility] REPOSITORY TYPE CODE TESTS RESULT OUT [...] months. Performed By: #### FVIIIC, LUPUSP #### [facility] [address] [place], [place] [address] LUPUS ANTICOAG PANEL Collected: 06/27/2017 Status: F Source: [place] 12:58 PM [facility] REPOSITORY TYPE CODE TESTS RESULT OUT OF RANGE REFERENCE UNITS LAB PSEC 9.7-13.0 sec High PT Sec 27.7 LAB INR 0.9-1.3 High PT INR 2.9 Result Comment: Vitamin K Antagonist (VKA) Therapeutic Range: INR 2 to 3 (Target INR of 2.5) Note: For patients treated with VKA drugs, such as warfarin, the [place] [employer] 2012 Guideline recommends [...] Chest 2012, 141:7S-47S Diogenes RESENDIZ, et al. [facility] 2017, 70: 252-289 LAB APTT 23.0-32.4 sec [...] The following results were obtained with the [employer] JOESPH IgG III JESSICA. Cardiolipin IgG [...] titer. Performed By: #### FVIIIC, LUPUSP #### [facility] [address] [place] [id number] CNOVSP Observed: 06/27/2017 Status: COMPLETED Source: [place] 12:30 PM [facility] REPOSITORY Visit (SP) Office ([facility]) PALOMA MARTINEZ ([id number]) 1990 F PTR Date Time Provider Department 06/27/17 12:30 PM [facility]IS [facility]IN [facility] During your visit today, we recorded the [...] port Return: blue port Medications given: See [facility] audit report. Volume treated: 7027 ml whole [...] oral fluids. Signed by: Carmita Verdin RN [facility] STAFF PHYSICIAN NOTE OF PERSONAL INVOLVEMENT [...] MD June 27, 2017 4:55 PM Pager: [phone] Referring Provider: LISSETH CLAUDIO [[id number]] Allergies As of Date: 06/27/2017 Noted Allergy [...] Carmita (Jeff) JEFF Verdin - Fully Assessed Reason for Visit: Plasmapheresis [1323] Primary Visit Diagnosis:APS (antiphospholipid syndrome) ([facility]) [D68.61] Order(s):LUPUS ANTICOAG PL [SQLUPUSP] Order #: [id number]. #:[id number] CBC + DIFF [SQCBCDIF] Order #: [id number]. #:[id number] COMP METABOLIC PANEL [SQCMP] Order #: [id number]. #:[id number] [facility] NURSING COMMUNICATION [[id number]] Order #: [id number]: 1 TREATMENT PARAMETERS [[id number]] Order #: [id number]: 1 HEMON[facility] NURSING COMMUNICATION [[id number]] Order #: [id number]: 1 STANDING [] diphenhydrAMINE 50 mg injection [...] daily. FLUTICASONE 50 MCG/ACTUATION * Use 1 Oakwood in each nostril o* WARFARIN 5 MG [...] 06/27/17 CNOVSP Observed: 06/27/2017 Status: COMPLETED Source: [place] 12:30 PM [facility] REPOSITORY Visit (SP) Office ([facility]) PALOMA MARTINEZ ([id number]) 1990 F [facility] Date Time Provider Department 06/27/17 12:30 PM [...] (FLONASE) 50 mcg/actuation nasal spray Use 1 Oakwood in each nostril once daily. warfarin (COUMADIN) [...] is less than 120/80. [employer] [facility] 1 package 30 - 40 mmHg pressure [...] Andujar MD June 27, 2017 2:42 PM Referring Provider: KEM ANDUJAR [[id number]] Allergies As of Date: 06/27/2017 Noted Allergy [...] enzymes Date Reviewed: 06/27/2017 Reviewed by: Carmita Sauer) JEFF Verdin - Fully Assessed Primary Visit Diagnosis:APS (antiphospholipid syndrome) (HCC) [D68.61] Order(s):LUPUS ANTICOAG PL [SQLUPUSP] Order #: [id number] FUTURE Disposition: Return in about 1 month [...] daily. FLUTICASONE 50 MCG/ACTUATION * Use 1 Oakwood in each nostril o* WARFARIN 5 MG [...] 07/13/17 HOSP Observed: 06/27/2017 Status: COMPLETED Source: [place] 12:00 AM [facility] REPOSITORY Patient Update ([facility]) PALOMA MARTINEZ ([id number]) 1990 F [facility] Date Time Provider Department 06/27/17 ELSA MELLO (COORD) [facility] During your visit today, we recorded the following information about you: Elsa Mello, Coord 07/07/2017 1:39 PM Signed Patient had appointments today at [facility]. I provided a parking pass. 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 FLUTICASONE 50 MCG/ACTUATION * Use 1 Oakwood in each nostril o* WARFARIN 5 MG [...] 06/10/2018 Drug Iodinated Contrast- renal failure Unknown [place] Allergy/416 Oral and IV Community 049787(SNOM Dye/[id number]([facility] ED CT) ) Repository 06/10/2018 Drug Gadolinium-MRI renal failure Unknown [place] Allergy/416 Contrast Community 642326(SNOM Medium/[id number]([facility] ED CT) XNORM) Repository 06/10/2018 Drug rhubarb/[id number]( Hives Unknown [place] Allergy/416 RXNORM) Community 754199([facility] ED CT) Repository 06/10/2018 Drug rituximab/[id number] Other Unknown [place] Allergy/416 6(RXNORM) Community 687760([facility] ED CT) Repository 06/10/2018 Drug heparin/Q276992713( HIT Unknown [place] Allergy/416 RXNORM) Community 385383([facility] ED CT) Repository 11/14/2017 DRUG CHLORHEXIDINE RASH [facility] INGREDI/419 [place] 968558(SNOM Repository ED CT) 11/09/2016 DRUG RITUXIMAB OTHER: [facility] [place] 476066(SNOM Repository ED CT) 2016 DRUG IODINE OTHER: SEE [facility] [place] 828849(SNOM Repository ED CT) 10/24/2013 DRUG RHUBARB RASH [facility] [place] 518403(SNOM Repository ED CT) 10/24/2013 DRUG HEPARIN OTHER: SEE [facility] INGREDI/419 Other [place] 493091(SNOM Repository ED CT) ENCOUNTERS ENCOUNTERS ADMIT/DISCHARGE ACCOUNT ADMITTING ENCOUNTER LOCATION SOURCE NUMBER CLASS 06/25/2018/ [id number] Inpatient [address] [place] Repository 06/22/2018 [id number] ESTELA HULL Inpatient [facility] [place] Repository 06/22/2018 [id number] Ambulatory [facility] ding:MEDOUTP Repository 06/19/2018/ [id number] Emergency [address] ding:ED Repository 06/18/2018 [id number] Ambulatory [facility] ding:MEDOUTP Repository 06/15/2018 [id number] Ambulatory [facility] ding:MEDOUTP Repository 06/14/2018/ [id number] Emergency [address] Main [place] Repository 06/12/2018/ [id number] Ambulatory [place] [facility] Main [place] Repository 06/11/2018/ [id number] Ambulatory [place] [facility] [place] Repository 06/10/2018/ [id number] [facility] ding:ED Repository 06/08/2018 [id number] Ambulatory [facility] ding:MEDOUTP Repository 06/05/2018/ [id number] WILLARD MARTÍNEZ Inpatient [place] [facility]18 [facility] [place] Repository 06/04/2018/ [id number] [facility] ding:ED Repository 06/04/2018 [id number] Ambulatory [facility] ding:MEDOUTP Repository 05/28/2018/ [id number] Ambulatory [place] [facility] [place] Repository 05/18/2018 [id number] Ambulatory [facility] ding:MEDOUTP Repository 05/14/2018/ [id number] ESTELA HULL Inpatient [place] [facility] [place] Repository 05/14/2018/ [id number] Ambulatory [place] [facility] [place] Repository 05/11/2018/ [id number] Ambulatory [place] [facility] [place] Repository 05/11/2018 [id number] Ambulatory [facility] ding:MEDOUTP Repository 05/08/2018/ [id number] Ambulatory [place] [facility] [place] Repository 05/06/2018/ [id number] Emergency [facility] [place] Repository 05/06/2018/ [id number] Emergency [place] [facility] [place] Repository 05/04/2018 [id number] Ambulatory [facility] ding:MEDOUTP Repository 05/01/2018/ [id number] Inpatient [place] [facility] [place] Repository 04/28/2018/ [id number] BIRD BRADSHAW Inpatient [place] [facility] [place] Repository 04/27/2018 [id number] Ambulatory [facility] ding:MEDOUTP Repository 04/24/2018/ [id number] Ambulatory BMSBuilding: [place] 018 BMS.[facility] Repository 04/24/2018/ [id number] Emergency [address] ding:ED Repository 04/23/2018 [id number] Ambulatory [facility] ding:MEDOUTP Repository 04/20/2018 [id number] Ambulatory [facility] ding:MEDOUTP Repository 04/18/2018/ [id number] Ambulatory [place] [address] [facility] Main [place] Repository 04/16/2018/ [id number] Ambulatory [place] [address] Main [place] Repository 04/12/2018 [id number] Ambulatory [facility] ding:MEDOUTP Repository 04/09/2018 [id number] Ambulatory [facility] ding:MEDOUTP Repository 04/05/2018 [id number] Ambulatory [facility] ding:MEDOUTP Repository 03/19/2018/ [id number] Ambulatory [facility] [place] Repository 03/14/2018/ [id number] Ambulatory [facility] [place] Repository 03/05/2018/ [id number] Inpatient [place] [facility] [place] Repository 02/19/2018/ [id number] Inpatient [place] [facility] [place] Repository 02/13/2018/ [id number] Ambulatory [place] [facility] [place] Repository 02/09/2018 [id number] [facility] Rep[facility] 02/06/2018/ [id number] Inpatient [place] [facility] [place] Repository 02/03/2018/ [id number] Ambulatory [place] [facility] [place] Repository 02/03/[id number] [facility] Main [place] Repository 02/02/2018 [id number] [facility] Repository 01/29/2018/ [id number] Ambulatory [facility] [place] Repository 01/29/2018 [id number] Inpatient [facility] [place] Repository 01/26/2018 [id number] Ambulatory [facility] ding:MEDOUTP Repository 01/24/2018/ [id number] Inpatient [place] [facility] [place] Repository 01/23/2018/ [id number] Ambulatory [place] [facility] [place] Repository 01/22/2018/ [id number] KWESI MANRIQUEZ Inpatient [place] [facility] [place] Repository 01/22/2018/ [id number] Ambulatory [facility] [place] Repository 01/22/2018/ [id number] Ambulatory [place] [facility] [place] Repository 01/22/2018/ [id number] Ambulatory [place] [facility] [place] Repository 01/22/2018/ [id number] Ambulatory [place] [facility] [place] Repository 01/22/2018/ [id number] Ambulatory [place] [facility] [place] Repository 01/19/2018 [id number] Ambulatory [facility] ding:MEDOUTP Repository 01/12/2018 [id number] Ambulatory [facility] ding:MEDOUTP Repository 01/08/2018/ [id number] Ambulatory [facility] [place] Repository 01/08/2018/ [id number] Ambulatory [place] [facility] [place] Repository 01/05/2018 [id number] Ambulatory [facility] ding:MEDOUTP Repository 01/05/2018 [id number] Ambulatory [facility] ding:MEDOUTP Repository 01/02/2018 [id number] Ambulatory [facility] ding:MEDOUTP Repository 01/01/2018/2 [id number] Ambulatory [place] [facility] [place] Repository 12/29/2017 [id number] Ambulatory [facility] ding:MEDOUTP Repository 12/25/2017/2 [id number] Ambulatory [place] [facility] [place] Repository 12/22/2017 [id number] Ambulatory [facility] ding:MEDOUTP Repository 12/21/2017/ [id number] Ambulatory [place] [facility] [place] Repository 12/19/2017 [id number] Ambulatory [facility] ding:MEDOUTP Repository 12/18/2017/ [id number] Ambulatory [place] [facility] [place] Repository 12/18/2017/ [id number] Ambulatory [facility] [place] Repository 12/12/2017/ [id number] Inpatient [place] [facility] [place] Repository 12/08/2017/ [id number] Ambulatory [facility] [place] Repository 12/08/2017/ [id number] Ambulatory [facility] [place] Repository 12/07/2017/ [id number] Ambulatory [facility] [place] Repository 12/05/2017/ [id number] Ambulatory [facility] [place] Repository 12/05/2017/ [id number] Ambulatory [facility] [place] Repository 12/05/2017/ [id number] Ambulatory [facility] [place] Repository 12/04/2017/ [id number] [facility] Inpatient [place] [facility]18 JOSE Encounter Clinic [place] Repository 12/02/2017/ [id number] GAEL VIEIRA Ambulatory [place] [facility]18 OTT[facility] [place] Repository 11/27/2017/ [id number] ERAN, Inpatient [place] [facility]18 NARENDRAKUMAR Encounter Clinic [place] Repository 11/13/2017/ [id number] Inpatient [place] [facility]18 [facility] [place] Repository 11/03/2017/ [id number] ERAN, Inpatient [place] [facility]18 NARENDRAKUMAR Encounter Clinic [place] Repository 11/02/2017/ [id number] ERAN, Ambulatory [place] [facility]18 NARENDRAKUMAR Clinic [place] Repository 10/27/2017/ [id number] ERAN, Ambulatory [place] [facility]18 NARENDRAKUMAR Clinic [place] Repository 10/25/2017/ [id number] ERAN, Inpatient [place] [facility]18 KUMAR Encounter Clinic [place] Repository 10/23/2017/ [id number] SAPNA WYATT Inpatient [place] [facility]18 Encounter Clinic [place] Repository 10/23/2017/ [id number] Emergency [address] ding:ED Repository 10/20/2017 [id number] Ambulatory [facility] ding:MEDOUTP Repository 10/18/2017/ [id number] Inpatient [place] [facility] [place] Repository 10/16/2017/ [id number] Inpatient [place] [facility] [place] Repository 10/14/2017/ [id number] Ambulatory [place] [facility] [place] Repository 10/14/2017/ [id number] Ambulatory [place] [facility] [place] Repository 10/13/2017/ [id number] ROS CHRISTIE Inpatient [place] [facility]18 Encounter [facility] [place] Repository 10/13/2017 [id number] Ambulatory [facility] Repository 10/13/2017/ [id number] Emergency [address] ding:ED Repository 10/13/2017 [id number] Ambulatory [facility] ding:MEDOUTP Repository 10/09/2017 [id number] Ambulatory [facility] ding:MEDOUTP Repository 10/06/2017 [id number] Ambulatory [facility] ding:MEDOUTP Repository 10/02/2017/ [id number] Inpatient [place] [facility] [place] Repository 09/29/2017/ [id number] AUSTEN CHOUDHURY Inpatient [place] [facility]18 R [facility]counter Clinic [place] Repository 09/29/2017 [id number] Ambulatory [facility] ding:MEDOUTP Repository 09/27/2017/ [id number] Ambulatory [facility] [place] Repository 09/27/2017/ [id number] Ambulatory [place] [facility] [place] Repository 09/22/2017 [id number] Ambulatory [facility] ding:MEDOUTP Repository 09/18/2017/ [id number] Ambulatory [address] [place] Repository 09/15/2017 [id number] Ambulatory [facility] ding:MEDOUTP Repository 09/12/2017/ [id number] Ambulatory [address] [place] Repository 09/11/2017/ [id number] Ambulatory [address] [place] Repository 09/11/2017 [id number] Ambulatory [facility] Repository 09/11/2017/ [id number] Ambulatory [address] [place] Repository 09/11/2017 [id number] Ambulatory [facility] ding:MEDOUTP Repository 09/08/2017 [id number] Ambulatory [facility] ding:MEDOUTP Repository 09/06/2017/2 [id number] Inpatient [address] Repository 09/01/2017 [id number] Ambulatory [facility] ding:MEDOUTP Repository 08/25/2017/ [id number] LISSETH HANKS Inpatient [address] Repository 08/25/2017 [id number] Ambulatory [facility] ding:MEDOUTP Repository 08/21/2017/2 [id number] Ambulatory [address] [place] Repository 08/16/2017 [id number] Ambulatory [facility] ding:MEDOUTP Repository 08/11/2017 [id number] Ambulatory [facility] ding:MEDOUTP Repository 08/07/2017/2 [id number] Ambulatory [address] [place] Repository 08/07/2017/ [id number] Ambulatory [address] Repository 08/04/2017 [id number] Ambulatory [facility] ding:MEDOUTP Repository 07/28/2017 [id number] Ambulatory [facility] ding:MEDOUTP Repository 07/24/2017/ [id number] Ambulatory [address] Repository 07/21/2017 [id number] Ambulatory [facility] ding:MEDOUTP Repository 07/19/2017/ [id number] Ambulatory [address] Repository 07/14/2017 [id number] Ambulatory [facility] ding:MEDOUTP Repository 07/11/2017 [id number] Ambulatory [facility] Repository 07/11/2017/ [id number] Ambulatory [address] Repository 07/07/2017 [id number] Ambulatory [facility] ding:MEDOUTP Repository 06/30/2017 [id number] [facility] ding:MEDOUTP Repository 06/27/2017/ [id number] Ambulatory [address] Repository 06/27/2017/ [id number] Ambulatory [address] Repository PAYERS PAYERS ENCOUNTER GUARANTOR PAYER SUBSCRIBER SOURCE 06/22/2018 PALOMA [id number] Primary PALOMA Obrien [address] Insurance:MYCARE CRSC OLIVERDOB: [address], [place] [facility] [id number] Hospital [address]Tzy: (330) Number: Repository [phone] () [id number] Date:1377-60-93FMRX CLAIMS DEPTPO [address] [place] [address]XH: 06/22/2018 Secondary NOT GIVENUNK [place] Insurance:SELF PAY [facility] Number: Effective Repository Date:2018-06-18 06/19/2018 PALOMA [id number] Primary [facility] [address] Insurance:MYCARE CRSC OLIVERDOB: [address], [place] [facility] [id number] Hospital [address]Gpl: (330) Number: Repository [phone] () [id number] Date:5781-30-97PPEN CLAIMS DEPTPO [address] [place] [address]TL: 06/19/2018 Secondary NOT GIVENUNK [place] Insurance:SELF PAY [facility] Number: Effective Repository Date:2018-06-19 06/18/2018 PALOMA Aguilar [id number] Primary PALOMA Obrien [address] Insurance:MYCARE CRSC OLIVERDOB: [place] [id number][place] [facility] [id number] Hospital [address]Kkd: (330) Number: Repository [phone] () [id number] Date:8273-77-74WAYB CLAIMS [address], [place] [address]HI: 06/18/2018 Secondary NOT GIVENUNK [place] Insurance:SELF PAY [facility] Number: Effective Repository Date:2018-06-15 06/15/2018 PALOMA Aguilar [id number] Primary PALOMA [facility] [address] Insurance:MYCARE CRSC [place]IVERDOB: [place] [id number][place] [facility] [id number] Hospital [address]Cci: (330) Number: Repository [phone] () [id number] Date:2641-40-05YFBZ CLAIMS [address], [place] [address]BT: 06/15/2018 Secondary NOT GIVENUNK [place] Insurance:SELF PAY [facility] Number: Effective Repository Date:2018-06-12 06/10/2018 PALOMA Aguilar [id number] Primary PALOMA [facility] [address] Insurance:MYCARE CRSC OLIVERDOB: [place] [id number][place] [facility] [id number] Hospital [address]Cgb: (330) Number: Repository [phone] () [id number] Date:4910-52-56XARK CLAIMS [address], [place] [address]KM: 06/10/2018 Secondary NOT GIVENUNK [place] Insurance:SELF PAY [facility] Number: Effective Repository Date:2018-06-10 06/08/2018 PALOMA Aguilar [id number] Primary [facility] [address] Insurance:MYCARE CRSC OLIVERDOB: [place] [id number], [place] [facility] [id number] Hospital [address]Tjg: (330) Number: Repository [phone] () [id number] Date:1536-17-56FEGU CLAIMS [address] [address]QM: 06/08/2018 Secondary NOT GIVENUNK [place] Insurance:SELF PAY [facility] Number: Effective Repository Date:2018-06-04 06/04/2018 PALOMA Aguilar [id number] Primary [facility] [address] Insurance:MYCARE CRSC OLIVERDOB: [place] [id number], [place] [facility] [id number] Hospital [address]Gqm: (330) Number: Repository [phone] () [id number] Date:2860-66-40WGYZ CLAIMS [address] [address]II: 06/04/2018 Secondary NOT GIVENUNK [place] Insurance:SELF PAY [facility] Number: Effective Repository Date:2018-06-04 06/04/2018 PALOMA Aguilar [id number] Primary PALOMA Aguilar [facility] [address] Insurance:MYCARE CRSC OLIVERDOB: Community [id number], [place] [facility] [id number] Hospital [address]Jbs: (330) Number: Repository [phone] () [id number] Date:5503-80-38AVMD CLAIMS [address] [address]QE: 06/04/2018 Secondary NOT GIVENUNK [place] Insurance:SELF PAY [facility] Number: Effective Repository Date:2018-06-04 05/18/2018 PALOMA Aguilar [id number] Primary PALOMA Obrien [address] Insurance:MYCARE CRSC OLIVERDOB: [place] [id number], [place] [facility] [id number] Hospital [address]Hqp: (330) Number: Repository [phone] () [id number] Date:0105-70-19SKHN CLAIMS [address], [place] [address]LJ: 05/18/2018 Secondary NOT GIVENUNK [place] Insurance:SELF PAY [facility] Number: Effective Repository Date:2018-05-02 05/11/2018 PALOMA Aguilar [id number] Primary PALOMA Aguilar [place] [address] Insurance:MYCARE CRSC OLIVERDOB: [place] [id number], [place] [facility] [id number] Hospital [address]Qlo: (330) Number: Repository [phone] () [id number] Date:9385-84-27BJDL CLAIMS DEPTPO [address] [place] [address]UE: 05/11/2018 Secondary NOT GIVENUNK [place] Insurance:SELF PAY [facility] Number: Effective Repository Date:2018-04-27 05/04/2018 PALOMA Aguilar [id number] Primary PALOMA [facility] [address] Insurance:MYCARE CRSC OLIVERDOB: [place] [id number], [place] [facility] [id number] Hospital 06127Jzt: (330) Number: Repository [phone] () [id number] Date:9544-54-87KZTK CLAIMS [address], [place] [address]OU: 05/04/2018 Secondary NOT GIVENUNK [place] Insurance:SELF PAY [facility] Number: Effective Repository Date:2018-04-20 04/27/2018 PALOMA Aguilar [id number] Primary PALOMA [facility] [address] Insurance:MYCARE CRSC OLIVERDOB: [place] [id number], [place] [facility] [id number] Hospital [address]Qwt: (330) Number: Repository [phone] () [id number] Date:6284-24-90XUXY CLAIMS [address], [place] [address]UK: 04/27/2018 Secondary NOT GIVENUNK [place] Insurance:SELF PAY [facility] Number: Effective Repository Date:2018-04-20 04/24/2018 PALOMA Aguilar [id number] Primary PALOMA [address] Insurance:MYCARE CRSC OLIVERDOB: [place] [id number], [place] [facility] [id number] Hospital [address]Ltd: (330) Number: Repository [phone] () [id number] Date:4900-70-88MEOQ CLAIMS DEPTPO [address] [place] [address]AG: 04/24/2018 Secondary PALOMA Obrien Insurance:MEDICAIDPol OLIVERDOB: Community icy Number: [id number] Hospital [id number] Repository Date:2018-04-24 04/24/2018 Tertiary NOT GIVENUNK [place] Insurance:SELF PAY [facility] Number: Effective Repository Date:2018-04-24 04/24/2018 PALOMA Aguilar [id number] Primary PALOMA [address] Insurance:MYCARE CRSC [place]IVERDOB: [place] [id number], [place] [facility] [id number] Hospital 326[address]Pmg: (330) Number: Repository [phone] () [id number] Date:9698-02-63LAEP [facility]S [facility] [address] [place] [address]FH: 04/24/2018 Secondary PALOMA Obrien Insurance:MEDICARE OLIVERDOB: Community PART A BPolicy [id number] Hospital Number: Repository [id number] Date:2018-04-24 04/24/2018 Tertiary NOT GIVENUNK [place] Insurance:SELF PAY [facility] Number: Effective Repository Date:2018-04-24 04/23/2018 PALOMA Aguilar [id number] Primary NOT GIVENUNK [place] [address] Insurance:SELF PAY [address], [place] [facility] [address]Jjv: (330) Number: Effective Repository [phone] () Date:2018-04-23 04/20/2018 PALOMA [id number] Primary [facility] [address] Insurance:MYCARE CRSC [place]IVERDOB: [place] [id number], [place] [facility] [id number] Hospital [address]832Qqk: (330) Number: Repository [phone] () [id number] Date:9109-61-98YUOE CLAIMS [address]PTPO [address] [address]CQ: 04/20/2018 Secondary NOT GIVENUNK [place] Insurance:SELF PAY [facility] Number: Effective Repository Date:2018-04-20 04/12/2018 PALOMA Aguilar [id number] Primary [facility] [address] Insurance:MYCARE CRSC OLIVERDOB: [place] [id number], [place] [facility] [id number] Hospital 88839Erd: (330) Number: Repository [phone] () [id number] Date:6117-32-97ZTQS CLAIMS [address], [place] [address]KT: 04/12/2018 Secondary NOT GIVENUNK [place] Insurance:SELF PAY [facility] Number: Effective Repository Date:2018-04-11 04/09/2018 PALOMA Aguilar [id number] Primary [facility] [address] Insurance:MYCARE CRSC [place]IVERDOB: [place] [id number], [place] [facility] [id number] Hospital 98[address]Lhg: (330) Number: Repository [phone] () [id number] Date:7387-01-68FNLV CLAIMS [address], [place] [address]CD: 04/09/2018 Secondary NOT GIVENUNK [place] Insurance:SELF PAY [facility] Number: Effective Repository Date:2018-04-04 04/05/2018 PALOMA Aguilar [id number] Primary [facility] [address] Insurance:MYCARE CRSC [place]IVERDOB: [place] [id number], [place] [facility] [id number] Hospital [address]Hst: (330) Number: Repository [phone] () [id number] Date:7135-99-25ALWS [place]S [address] [address]FH: 04/05/2018 Secondary NOT GIVENUNK [place] Insurance:SELF PAY [facility] Number: Effective Repository Date:2018-04-04 02/09/2018 PALOMA Aguilar [id number] Primary PALOMA Aguilar [facility] [address] Insurance:MYCARE CRSC [place]IVERDOB: [place] [id number], [place] [facility] [id number] Hospital 6[address]Fgm: (330) Number: Repository [phone] () [id number] Date:4410-80-41NORV CLAIMS [address] [address]FB: 02/09/2018 Secondary NOT GIVENUNK [place] Insurance:SELF PAY [facility] Number: Effective Repository Date:2018-01-25 02/02/2018 PALOMA Aguilar [id number] Primary PALOMA [facility] [address] Insurance:MYCARE CRSC [place]IVERDOB: [place] [id number], [place] [facility] [id number] Hospital 110[address]Vte: (330) Number: Repository [phone] () [id number] Date:7486-19-30CQBA CLAIMS DEPTPO [address] [place] [address]FX: 02/02/2018 Secondary NOT GIVENUNK [place] Insurance:SELF PAY [facility] Number: Effective Repository Date:2018-01-25 01/26/2018 PALOMA Aguilar [id number] Primary PALOMA [facility] [address] Insurance:MYCARE CRSC [place]IVERDOB: [place] [id number], [place] [facility] [id number] Hospital 97822Wps: (330) Number: Repository [phone] () [id number] Date:2882-40-98IRXU CLAIMS [address], [place] [address]XT: 01/26/2018 Secondary NOT GIVENUNK [place] Insurance:SELF PAY [facility] Number: Effective Repository Date:2018-01-25 01/19/2018 PALOMA Aguilar [id number] Primary [facility] [address] Insurance:MYCARE CRSC [place]IVERDOB: [place] [id number], [place] [facility] [id number] Hospital 47[address]Hie: (330) Number: Repository [phone] () [id number] Date:9460-00-40HFXO CLAIMS [address], [place] [address]OS: 01/19/2018 Secondary NOT GIVENUNK [place] Insurance:SELF PAY [facility] Number: Effective Repository Date:2018-01-05 01/12/2018 PALOMA Aguilar [id number] Primary [facility] [address] Insurance:MYCARE CRSC [place]IVERDOB: [place] [id number], [place] [facility] [id number] Hospital 01481Ngr: (330) Number: Repository [phone] () [id number] Date:8740-05-03BHMP CLAIMS [address], [place] [address]AN: 01/12/2018 Secondary NOT GIVENUNK [place] Insurance:SELF PAY [facility] Number: Effective Repository Date:2018-01-05 01/05/2018 PALOMA Aguilar [id number] Primary [facility] [address] Insurance:MYCARE CRSC [place]IVERDOB: [place] [id number][place] [facility] [id number] Hospital 04464Lsv: (330) Number: Repository [phone] () [id number] Date:7091-92-51HQIP CLAIMS [address], [place] [address]NG: 01/05/2018 Secondary NOT GIVENUNK [place] Insurance:SELF PAY [facility] Number: Effective Repository Date:2017-12-29 01/05/2018 PALOMA Aguilar [id number] Primary [facility] [address] Insurance:MYCARE CRSC [place]DOB: [place] [id number], [place] [facility] [id number] Hospital 90812Ksa: (330) Number: Repository [phone] () [id number] Date:5714-85-63ALKQ CLAIMS [address], [place] [address]HY: 01/05/2018 Secondary NOT GIVENUNK [place] Insurance:SELF PAY [facility] Number: Effective Repository Date:2018-01-05 01/02/2018 PALOMA Aguilar [id number] Primary PALOMA [facility] [address] Insurance:MYCARE CRSC [place]IVERDOB: [place] [id number], [place] [facility] [id number] Hospital 83[address]Phc: (330) Number: Repository [phone] () [id number] Date:4210-37-70RBBZ CLAIMS [address], [place] [address]FZ: 01/02/2018 Secondary NOT GIVENUNK [place] Insurance:SELF PAY [facility] Number: Effective Repository Date:2018-01-01 12/29/2017 PALOMA Aguilar [id number] Primary [facility] [address] Insurance:MYCARE CRSC [place]IVERDOB: [place] [id number], [place] [facility] [id number] Hospital 624[address]Ery: (330) Number: Repository [phone] () [id number] Date:4391-97-45ADBH CLAIMS [address], [place] [address]TK: 12/29/2017 Secondary NOT GIVENUNK [place] Insurance:SELF PAY [facility] Number: Effective Repository Date:2017-12-28 12/22/2017 PALOMA Aguilar [id number] Primary LUXORA [facility] [address] Insurance:MYCARE CRSC [place]IVERDOB: [place] [id number], [place] [facility] [id number] Hospital [address]Yqj: Number: Repository [phone] [id number] () Date:6533-06-37LVWE CLAIMS [address], [place] [address]LN: 12/22/2017 Secondary NOT GIVENUNK [place] Insurance:SELF PAY [facility] Number: Effective Repository Date:2017-12-21 12/19/2017 PALOMA Aguilar [id number] Primary PALOMA Aguilar [facility] [address] Insurance:MYCARE CRSC [place]IVERDOB: [place] [id number], [place] [facility] [id number] Hospital 68842Xor: Number: Repository [phone] [id number] (HP) Date:6355-58-81WXUK CLAIMS [address], [place] [address]XC: 12/19/2017 Secondary NOT GIVENUNK [place] Insurance:SELF PAY [facility] Number: Effective Repository Date:2017-12-18 10/23/2017 PALOMA Aguilar [id number] Primary [facility] [address] Insurance:MYCARE CRSC [place]IVERDOB: [place] [id number][place] [facility] [id number] Hospital [address]Hrk: Number: Repository [phone] [id number] (HP) Date:7435-19-09LWRW CLAIMS [address], [place] [address]BZ: 10/23/2017 Secondary NOT GIVENUNK [place] Insurance:SELF PAY [facility] Number: Effective Repository Date:2017-10-23 10/20/2017 PALOMA Aguilar [id number] Primary PALOMA [facility] [address] Insurance:MYCARE CRSC [place]IVERDOB: [place] [id number], [place] [facility] [id number] Hospital [address]2236Jyy: Number: Repository [phone] [id number] (HP) Date:1656-88-95LIXK CLAIMS [address], [place] [address]ZF: 10/20/2017 Secondary NOT GIVENUNK [place] Insurance:SELF PAY [facility] Number: Effective Repository Date:2017-10-13 10/13/2017 PALOMA Aguilar [id number] Primary [facility] [address] Insurance:MYCARE CRSC [place]IVERDOB: [place] [id number], [place] [facility] [id number] Hospital [address]72Aso: Number: Repository [phone] [id number] (HP) Date:8752-37-82OYUN CLAIMS [address], [place] [address]LU: 10/13/2017 Secondary NOT GIVENUNK [place] Insurance:SELF PAY [facility] Number: Effective Repository Date:2017-10-13 10/13/2017 PALOMA Aguilar [id number] Primary [facility] [address] Insurance:MYCARE CRSC [place]IVERDOB: [place] [id number], [place] [facility] [id number] Hospital [address]Eam: Number: Repository [phone] [id number] (HP) Date:1281-60-31WNYV CLAIMS [address], [place] [address]KJ: 10/13/2017 Secondary NOT GIVENUNK [place] Insurance:SELF PAY [facility] Number: Effective Repository Date:2017-10-13 10/13/2017 PALOMA Aguilar [id number] Primary [facility] [address] Insurance:MYCARE CRSC OLIVERDOB: [place] [id number], [place] [facility] [id number] Hospital 9[address]Aqd: Number: Repository [phone] [id number] (HP) Date:6438-08-64SFBG CLAIMS [address], [place] [address]LM: 10/13/2017 Secondary NOT GIVENUNK [place] Insurance:SELF PAY [facility] Number: Effective Repository Date:2017-10-09 10/09/2017 PALOMA Aguilar [id number] Primary [facility] [address] Insurance:MYCARE CRSC [place]IVERDOB: [place] [id number], [place] [facility] [id number] Hospital [address]Nbw: Number: Repository [phone] [id number] (HP) Date:6927-84-83NKTQ CLAIMS DEPTPO [address] [place] [address]SI: 10/09/2017 Secondary NOT GIVENUNK [place] Insurance:SELF PAY [facility] Number: Effective Repository Date:2017-10-06 10/06/2017 PALOMA Aguilar [id number] Primary [facility] [address] Insurance:MEDICARE OLIVERDOB: Community [id number] OBRIEN PART A [facility] [id number] Hospital [address]Xlk: Number: Repository [phone] [id number] (HP) Date:2017-09-29 10/06/2017 Secondary PALOMA M [place] Insurance:MEDICAIDPol OL[place]DOB: Community icy Number: [id number] Hospital [id number] Repository Date:2017-09-29 10/06/2017 Tertiary NOT GIVENUNK [place] Insurance:SELF PAY [facility] Number: Effective Repository Date:2017-09-29 09/29/2017 PALOMA Aguilar [id number] Primary [facility] [address] Insurance:MEDICARE [place]DOB: [place] [address] PART A [facility] [id number] Hospital [address]Xtc: Number: Repository [phone] [id number] (HP) Date:2017-09-22 09/29/2017 Secondary PALOMA M Micah Insurance:MEDICAIDPol OLIVERDOB: Community icy Number: [id number] Hospital [id number] Repository Date:2017-09-22 09/29/2017 Tertiary NOT GIVENUNK [place] Insurance:SELF PAY [facility] Number: Effective Repository Date:2017-09-22 09/22/2017 PALOMA Aguilar [id number] Primary [facility] [address] Insurance:MEDICARE [place]DOB: [address] A [facility] [id number] Hospital [address]Csj: Number: Repository [phone] [id number] (HP) Date:2017-09-22 09/22/2017 Secondary PALOMA [place] Insurance:MEDICAIDPol OLIVERDOB: Community icy Number: [id number] Hospital [id number] Repository Date:2017-09-22 09/22/2017 Tertiary NOT GIVENUNK [place] Insurance:SELF PAY [facility] Number: Effective Repository Date:2017-09-22 09/15/2017 PALOMA Aguilar [id number] Primary [facility] [address] Insurance:MEDICARE OLIVERDOB: Community [address] PART A [facility] [id number] Hospital [address]Phj: Number: Repository [phone] [id number] (HP) Date:2017-09-08 09/15/2017 Secondary PALOMA Aguilar Micah Insurance:MEDICAIDPol OLIVERDOB: Community icy Number: [id number] Hospital [id number] Repository Date:2017-09-08 09/15/2017 Tertiary NOT GIVENUNK [place] Insurance:SELF PAY [facility] Number: Effective Repository Date:2017-09-08 09/11/2017 PALOMA Aguilar [id number] Primary [facility] [address] Insurance:MEDICARE OLIVERDOB: [address] PART A [facility] [id number] Hospital [address]Hsu: Number: Repository [phone] [id number] (HP) Date:2017-09-08 09/11/2017 Secondary PALOMA Aguilar [place] Insurance:MEDICAIDPol OLIVERDOB: Community icy Number: [id number] Hospital [id number] Repository Date:2017-09-08 09/11/2017 Tertiary NOT GIVENUNK [place] Insurance:SELF PAY [facility] Number: Effective Repository Date:2017-09-08 09/08/2017 PALOMA Aguilar [id number] Primary [facility] [address] Insurance:MEDICARE OLIVERDOB: [address] PART A [facility] [id number] Hospital [address]Brv: (330) Number: Repository [phone] () [id number] Date:2017-08-31 09/08/2017 Secondary PALOMA Aguilar [place] Insurance:MEDICAIDPol OLIVERDOB: Community icy Number: [id number] Hospital [id number] Repository Date:2017-08-31 09/08/2017 Tertiary NOT GIVENUNK [place] Insurance:SELF PAY [facility] Number: Effective Repository Date:2017-08-31 09/01/2017 PALOMA [id number] Primary PALOMA OLIVERDOB: [place] [address] Insurance:MEDICARE [id number] PART A [facility] [address]Iyj: Number: Repository [phone] [id number] () Date:2017-08-25 09/01/2017 Secondary PALOMA OLIVERDOB: [place] Insurance:MEDICAIDPol [id number] [facility] icy Number: Hospital [id number] Repository Date:2017-08-25 09/01/2017 Tertiary NOT GIVENUNK [place] Insurance:SELF PAY [facility] Number: Effective Repository Date:2017-08-25 08/25/2017 PALOMA [id number] Primary PALOMA OLIVERDOB: [place] [address] Insurance:MEDICARE [id number] [address] PART A [facility] [address]Yzo: Number: Repository [phone] [id number] (HP) Date:2017-08-18 08/25/2017 Secondary PALOMA OLIVERDOB: [place] Insurance:MEDICAIDPol [id number] Community icy Number: Hospital [id number] Repository Date:2017-08-18 08/25/2017 Tertiary NOT GIVENUNK [place] Insurance:SELF PAY [facility] Number: Effective Repository Date:2017-08-18 08/16/2017 PALOMA Aguilar [id number] Primary [address]OMA [address] Insurance:MEDICARE OLIVERDOB: [address] PART A [facility] [id number] Hospital [address]Tuv: (330) Number: Repository [phone] () [id number] Date:2017-08-11 08/16/2017 Secondary PALOMA Aguilar Mic[place] Insurance:MEDICAIDPol OLIVERDOB: Community icy Number: [id number] Hospital [id number] Repository Date:2017-08-11 08/16/2017 Tertiary NOT GIVENUNK [place] Insurance:SELF PAY [facility] Number: Effective Repository Date:2017-08-11 08/11/2017 PALOMA [id number] Primary PALOMA OLIVERDOB: [place] [address] Insurance:MEDICARE [id number] PART A [facility] [address]Meh: Number: Repository [phone] [id number] (HP) Date:2017-07-31 08/11/2017 Secondary PALOMA OLIVERDOB: [place] Insurance:MEDICAIDPol [id number] Community icy Number: Hospital [id number] Repository Date:2017-07-31 08/11/2017 Tertiary NOT GIVENUNK [place] Insurance:SELF PAY [facility] Number: Effective Repository Date:2017-07-31 08/04/2017 PALOMA Aguilar [id number] Primary PALOMA YOUSSEF [address]APT Insurance:MEDICARE OLIVERDOB: [address] PART [address] [facility] [id number] Hospital [address]Lks: Number: Repository [phone] [id number] (HP) Date:2017-07-28 08/04/2017 Secondary PALOMA Aguilar [place] Insurance:MEDICAID[place] OLIVERDOB: Community icy Number: [id number] Hospital [id number] Repository Date:2017-07-28 08/04/2017 Tertiary NOT GIVENUNK Micah Insurance:SELF PAY [facility] [place] [facility] Effective Repository Date:2017-07-28 07/28/2017 PALOMA [id number] Insurance:MEDICARE OLIVERDOB: [address] PART A [facility] [id number] Hospital [address]Rcv: ([phone] Number: Repository [phone] () [id number] Date:2017-07-21 07/28/2017 Secondary PALOMA M Micah Insurance:MEDICAIDPol OLIVERDOB: Community icy Number: [id number] Hospital [id number] Repository Date:2017-07-21 07/28/2017 Tertiary NOT GIVENUNK [place] Insurance:SELF PAY [facility] Effective Repository Date:2017-07-21 07/21/2017 PALOMA Aguilar [id number] Primary [address] Insurance:MEDICARE BUTTERBAUGHDOB: [address] PART A [facility] [id number] Hospital [address]Kup: Number: Repository [phone] [id number] (HP) Date:2017-07-14 07/21/2017 Secondary PALOMA Aguilar Mic[place] Insurance:MEDICAIDPol BUTTERBAUGHDOB: [facility] icy Number: [id number] Hospital [id number] Repository Date:2017-07-14 07/21/2017 Tertiary NOT GIVENUNK [place] Insurance:SELF PAY [facility] Number: Effective Repository Date:2017-07-14 07/14/2017 PALOMA [id number] Insurance:MEDICARE BUTTERBAUGHDOB: [address] PART A [facility] [id number] Hospital [address]Yjc: (330) Number: Repository [phone] () [id number] Date:2017-07-07 07/14/2017 Secondary PALOMA Aguilar [place] Insurance:MEDICAIDPol BUTTERBAUGHDOB: [facility] icy Number: [id number] Hospital [id number] Repository Date:2017-07-07 07/14/2017 Tertiary NOT GIVENUNK [place] Insurance:SELF PAY [facility] Number: Effective Repository Date:2017-07-07 07/07/2017 PALOMA [id number] Insurance:MEDICARE OLIVERDOB: [address] PART A [facility] [id number] Hospital [id number]: ([phone]) Number: Repository [phone] () [id number] Date:2017-06-30 07/07/2017 Secondary PALOMA OLIVERDOB: [place] Insurance:MEDICAIDPol [id number] [facility] icy Number: Hospital [id number] Repository Date:2017-06-30 07/07/2017 Tertiary NOT GIVENUNK [place] Insurance:SELF PAY [facility] Effective Repository Date:2017-06-30 06/30/2017 PALOMA [id number] [facility] [address] [facility] [address] Insurance:MEDICARE BUTTERBAUGHDOB: [place] [address] [facility] [id number] [facility] [id number]: ([phone]) Number: Repository [phone] () [id number] Date:2017-06-23 06/30/2017 Secondary PALOMA SHANOB: [place] Insurance:MEDICAIDPol [id number] [facility] icy Number: Hospital [id number] Repository Date:2017-06-23 06/30/2017 Tertiary NOT GIVENUNK [place] Insurance:SELF PAY [facility] Number: Effective Repository Date:2017-06-23
== END ==
PROVIDERS: Family Provider Internal Medicine; PCP Internal Medicine; Referring Provider Nurse Practitioner Adult Health; Visit Provider Nurse Practitioner Adult Health
DX: D75.82 Heparin induced thrombocytopenia (HIT) (principal); Z86.718 Personal history of other venous thrombosis and embolism
CPT/HCPCS: 36415; 36592; 85610; A4216

== ENCOUNTER 2018-06-10 01:01 | Emergency (ER) | payer MEDICARE, SELFPAY ==
[2018-06-10 01:02] VITALS: BP 172/84; PULSE 92; RESP 18; TEMP 36.9; O2SAT 100; BMI 38.2
--- NOTE | 2018-06-10 01:42 | CT_ITS ---
HISTORY: LT SIDED ABDOMEN PAIN WITH SHOCKS DOWN HER LEGS,PT HAS REOCCURING RETROPERITONEAL HEMATOMA,RECENT DISCHARGE FROM [employer] [facility] FOR THE [facility]-MINDEDHX:HTN,CLOTTING DISORDER-ANTIPHOSPHOLIPID ANTIBODY SYNDROMESURGERY:CHOLECYSTECTOMY,ABDOMINAL STENT TECHNIQUE: Helically acquired images were obtained of the abdomen and pelvis without oral or IV contrast as per renal stone protocol. A radiation dose optimization technique was used for this scan. IV Contrast dosage and agent: None. Oral contrast: None. COMPARISON: 06/04/2018 FINDINGS: Redemonstration of a left retroperitoneal soft tissue hematoma with secondary anterior displacement of the left kidney. The hematoma appears stable in size and measures approximately 10 cm in AP dimension. No new areas of hemorrhage are seen. Lower thorax: No pleural effusion. Cholecystectomy with surgical clips in the gallbladder fossa. No biliary dilatation. The liver and pancreas show no CT abnormality. Mild splenomegaly, unchanged. The spleen measures approximately 13.5 cm in length. Anterior displacement of the left kidney. No renal or ureteral calculi and no hydronephrosis or hydroureter. The adrenal glands are not enlarged. Abdominal aorta is normal caliber. IVC filter and bilateral external iliac vein stents. No ascites or free fluid. GI tract: No obstruction. Normal appendix. Pelvis: Anteverted uterus which is normal in size. The pelvis shows no free fluid or lymphadenopathy. The urinary bladder is unremarkable. Ventral wall: Numerous superficial varicosities which are patent and without significant change compared to previous CT/Abdomen/Pelvis without Cont IMPRESSION: 1. Left retroperitoneal hematoma, unchanged. No new or acute hemorrhage. No free fluid 2. Mild splenomegaly, unchanged. 3. IVC filter and additional chronic changes, as above. Individualized dose optimization techniques were used for this CT. at 0305 Reported and signed by: Ralph Ramirez MD Electronically Signed: Ralph Ramirez, at 3:03 EST Tel , Service support ,
--- NOTE | 2018-06-10 01:43 | ED.VIS.GEN ---
History of Present Illness Chief Complaint: Back Informant: Patient Onset: Today Context: Gradual Onset Timing: Continuous Quality: Pain Location: Left low back Current Severity: Severe Maximum Severity: Severe Relieved by: Not by her oxycodone Associated Symptoms: Radiation down left lower extremity with numbness of left leg Narrative: Patient has had these symptoms for about 4 months, she associates it with a spontaneous retroperitoneal hematoma associated with her Coumadin, which she takes for antiphospholipid antibody syndrome. She gets plasmapheresis every other week, she is due for another treatment at [facility] in just over 24 hours from now. She presents now because her oxycodone has not really the chronic pain that she has in her back that she associates with the retroperitoneal hematoma. She states in [place], they have told her that it is putting pressure on some spinal nerves, giving her this sciatica symptoms down her left lower extremity. The quality of all of this is unchanged, she states that she has noticed in no sudden way that her pain in the back is just worse today. She denies any other new symptoms, including perineal/saddle anesthesia, weakness of the leg, bowel or bladder dysfunction. No abdominal pain, no lightheadedness or syncope. No fevers. No urinary symptoms that are new. 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 (5) History of deep vein thrombosis (DVT) of lower extremity Status: Chronic (6) Hypertension Status: Chronic (7) Morbid obesity Status: Chronic (8) Steroid dependence Status: Chronic (9) HIT (heparin-induced thrombocytopenia) Status: Resolved Past Medical History - Allergies and Home Meds Allergies/Adverse Reactions: Allergies heparin Allergy (Verified 06/10/18 01:02) HIT rhubarb Allergy (Verified 06/10/18 01:02) Hives Gadolinium-MRI Contrast Medium [CONTRAST] Adverse Reaction (Verified 06/10/18 01:02) RENAL FAILURE Iodinated Contrast- Oral and IV Dye [CONTRASTS] Adverse Reaction (Verified 06/10/18 01:02) RENAL FAILURE rituximab Adverse Reaction (Verified 06/10/18 01:02) Other PT STATES WHEN SHE TOOK THE FULL DOSE OF THE MEDICATION IT INCREASED HER HEART ENZYMES. Primary Care Physician: Peyton López MD [Primary Care Provider] - Surgical History: - - IVC filter placement Smoking Status: Never smoker - Family History Maternal Family History: Reports: Cancer Paternal Family History: Reports: No pertinent history Review of Systems General: Denies: Chills, Fever, Sweats Eyes: Denies: Visual changes - bilaterally, Diplopia ENT: Denies: Bilateral ear pain, Sore throat Cardiovascular: Denies: Chest pain, Palpitations Respiratory: Denies: Dyspnea, Cough, Dyspnea on exertion Gastrointestinal: Denies: Abdominal pain, Nausea, Vomiting, Diarrhea, Melena, Hematochezia Genitourinary: Denies: Dysuria, Hematuria, Frequency Musculoskeletal: Reports: Back pain, Extremity Pain - LLE, like electricity. Denies: Neck pain, Swelling Skin: Denies: Rash, Wounds Neurological: Reports: Numbness - LLE. Denies: Headache, Weakness Physical Exam Vital Signs/Narrative: Vital Signs Temp Pulse Resp BP Pulse Ox 06/10/18 01:02 98.5 F 92 18 172/84 H 100 Inital Vital Signs reviewed: Yes General: Well nourished, Well developed, - - well-appearing, nad Head: Normocephalic, Atraumatic Eyes: Perrl, EOMI ENT: Moist mucous membranes, No rhinorrhea Neck: Supple, Nontender Cardiovascular: Regular rate, Regular rhythm, No murmurs Respiratory: No distress, CTA bilaterally, Chest nontender Abdomen: Soft, Nontender, Nondistended, Normal bowel sounds, - - abd wall varicosities, nontender. no anupama, herzog fuller signs. Back: Normal Inspection, CVA tenderness - left only. Negative for: Spinal tenderness Extremities: Nontender, No edema, - - positive ipsilat LLE straight leg raise only Skin: Normal color, No rash Neurological: Alert, Oriented x3, Cranial nerves II-XII grossly intact, Normal Strength, Parasthesia - distal half of LLE Psychological: Normal affect Diagnostic/Tx/Re-eval Impressions Abdomen/Pelvis CT 06/10/18 01:42 IMPRESSION: 1. Left retroperitoneal hematoma, unchanged. No new or acute hemorrhage. No free fluid 2. Mild splenomegaly, unchanged. 3. IVC filter and additional chronic changes, as above. Individualized dose optimization techniques were used for this CT. at 0305 Reported and signed by: Ralph Ramirez MD Electronically Signed: Ralph Ramirez, at 3:03 EST Tel , Service support , 06/10/18 01:42 Abdomen/Pelvis without Cont [CT] Stat Laboratory Results 06/10/18 06/10/18 06/10/18 02:00 02:00 02:00 WBC 4.5 RBC 3.59 L Hgb 10.0 L Hct 31.5 L MCV 87.7 MCH 27.9 MCHC 31.7 L RDW 14.8 H RDW Differential 48.0 H Plt Count 135 L MPV 10.1 PT 26.6 H INR 2.4 Sodium 141 Potassium 3.9 Chloride 103 Carbon Dioxide 32.0 Anion Gap 6 BUN 12 Creatinine 0.96 Estim Creat Clear Calc 71.53 Est GFR (MDRD) Af Amer 89 Est GFR (MDRD) Non-Af 73 BUN/Creatinine Ratio 12.6 Glucose 108 H Calcium 9.7 - Medical Decision Making CT shows stable size of her retroperitoneal hematoma without any evidence of new bleeding. Her hemoglobin is essentially the same as it was several days ago. Her INR is 2.4, stable. She states when she was transferred to [place] several days ago, they evaluated her with some more images, and deemed that she was having no active bleeding and that her retroperitoneal hematoma has been stable and slowly shrinking since several months ago when it was diagnosed. At that time, she had bled down to a hemoglobin of about 5.7. I feel that she is certainly stable this time for pain control, she was given 2 separate doses of morphine and discharged home with close outpatient follow-up. Of note, she is scheduled in 24-36 hours to have a repeat CT to reevaluate the size of her retroperitoneal hematoma so she was sent with the CT and report that we did tonight. ED Disposition - Plan for ED Patient: Disposition: Home or Assisted Living Chief Complaint: Back Diagnosis: Acute exacerbation of chronic low back pain, Retroperitoneal hematoma, Antiphospholipid antibody syndrome Instructions: ED Neck Back Pain General Referrals: Peyton López MD [Primary Care Provider] - 3-5 Days if not improving
[2018-06-10 02:13] LABS: Hematocrit 31.5 % (37-47); Mean Corp Hgb Conc 31.7 g/gl (32-36); Mean Corpuscular Hgb 27.9 pg (27.0-32.0); Mean Corpuscular Volume 87.7 fL (81-99); Mean Platelet Vol. 10.1 fl (6.2-12.0); Platelet Count 135 K/mm3 (150-450); RBC Distribution Width CV 14.8 % (11.6-14.6); Red Blood Count 3.59 M/mm3 (4.2-5.4); White Blood Count 4.5 K/mm3 (4.4-11.0)
[2018-06-10 02:17] LABS: International Normalized Ratio 2.4; Prothrombin Time (Protime)PT. 26.6 SECONDS (11.7-14.9)
[2018-06-10 02:18] LABS: Scan Indicated on CBC? Y/N NO
[2018-06-10] MEDS: Morphine 4 MG/ML Syringe IV ×2 (02:18→04:13)
[2018-06-10 02:20] LABS: Anion Gap 6 (5-15); BUN 12 mg/dL (7-18); BUN/Creat Ratio 12.6 RATIO (10-20); Calcium,Total 9.7 mg/dL (8.5-10.1); Chloride 103 mmol/L (98-107); Creatinine, Serum 0.96 mg/dL (0.55-1.02); EST Glomerular Filtration Rate 73 mL/min (>60); Est Glom Filt Rate - Afr Amer 89 mL/min (>60); Estimated Creatinine Clearance 71.53 ml/min; Glucose 108 mg/dL (74-106); Potassium 3.9 mmol/L (3.5-5.1); Sodium Level 141 mmol/L (136-145)
[2018-06-10 04:18] VITALS: BP 122/79; PULSE 87; PULSE 93; RESP 18; O2SAT 97; O2SAT 99
--- OUTSIDE RECORDS SUMMARY | 2018-08-03 22:07 | XMS RPT_ITS ---
:1990 Author Organization OHIP Support Name Relationship Address Phone JANE AIKEN/SILVER Unavailable [address] + [place] [address] D Unavailable Unavailable Unavailable MORTEZA CANNON Unavailable [address] + [place] [address] JANE AIKEN/SILVER Unavailable [address] + [place] [address] D Unavailable Unavailable Unavailable MORTEZA CANNON Unavailable [address] + [place] [address] NELLI JANE/SILVER Unavailable [address] + [place] [address] D Unavailable Unavailable Unavailable MORTEZA CANNON Unavailable [address] + [place] [address] NELLI JANE/SILVER Unavailable [address] + [place] [address] D Unavailable Unavailable Unavailable MORTEZA CANNON Unavailable [address] + [place] [address] JANE AIKEN/SILVER Unavailable [address] + [place] [address] D Unavailable Unavailable Unavailable MORTEZA CANNON Unavailable [address] + [place] [address] JANE AIKEN/SILVER Unavailable [address] + [place] [address] D Unavailable Unavailable Unavailable MORTEZA CANNON Unavailable [address] + [place] [address] BUTTERBAUGH, JANE/SILVER Unavailable [address] + [place] [address] D Unavailable Unavailable Unavailable MORTEZA CANNON Unavailable [address] + [place] [address] NELLI JANE/SILVER Unavailable [address] + [place] [address] D Unavailable Unavailable Unavailable MORTEZA CANNON Unavailable [address] + [place] [address] NELLI JANE/SILVER Unavailable [address] + [place] [address] D Unavailable Unavailable Unavailable MORTEZA CANNON Unavailable [address] + [place] [address] NELLI JANE/SILVER Unavailable [address] + [place] [address] D Unavailable Unavailable Unavailable MORTEZA CANNON Unavailable [address] + [place] [address] RICKEYBAMELISSA JANE/SILVER Unavailable [address] + [place] [address] D Unavailable Unavailable Unavailable MORTEZA CANNON Unavailable [address] + [place] [address] BUTTERBAMELISSA JANE/SILVER Unavailable [address] + [place] [address] D Unavailable Unavailable Unavailable MORTEZA CANNON Unavailable [address] + [place] [address] BUTTERBAMELISSA JANE/SILVER Unavailable [address] + [place] [address] D Unavailable Unavailable Unavailable MORTEZA CANNON Unavailable [address] + [place] [address] BUTTERBAMELISSA, JANE/SILVER Unavailable [address] + [place] [address] D Unavailable Unavailable Unavailable MORTEZA CANNON Unavailable [address] + [place] [address] BUTTERBAMELISSA, JANE/SILVER Unavailable [address] + [place] [address] D Unavailable Unavailable Unavailable MORTEZA CANNON Unavailable [address] + [place] [address] RICKEYBAMELISSA, JANE/SILVER Unavailable [address] + [place] [address] D Unavailable Unavailable Unavailable MORTEZA CANNON Unavailable [address] + [place] [address] RICKEYBAMELISSA, JANE/SILVER Unavailable [address] + [place] [address] D Unavailable Unavailable Unavailable MORTEZA CANNON Unavailable [address] + [place] [address] NELLI, JANE/SILVER Unavailable [address] + [place] [address] D Unavailable Unavailable Unavailable MORTEZA CANNON Unavailable [address] + [place] [address] NELLI, JANE/SILVER Unavailable [address] + [place] [address] D Unavailable Unavailable Unavailable MORTEZA CANNON Unavailable [address] + [place] [address] NELLI, JANE/SILVER Unavailable [address] + [place] [address] D Unavailable Unavailable Unavailable MORTEZA CANNON Unavailable [address] + [place] [address] RICKEYBAMELISSA, JANE/SILVER Unavailable [address] + [place] [address] D Unavailable Unavailable Unavailable MORTEZA CANNON Unavailable [address] + [place] [address] RICKEYBAUGH, JANE/SILVER Unavailable [address] + [place] [address] D Unavailable Unavailable Unavailable MORTEZA CANNON Unavailable [address] + [place] [address] BUTTERBAMELISSA, JANE/SILVER Unavailable [address] + [place] [address] D Unavailable Unavailable Unavailable DAVIS MORTEZA Unavailable [address] + [place] [address] BUTTERBAUGH, JANE/SILVER Unavailable [address] + [place] [address] D Unavailable Unavailable Unavailable DAVIS MORTEZA Unavailable [address] + [place] [address] BUTTERBAUGH, JANE/SILVER Unavailable [address] + [place] [address] D Unavailable Unavailable Unavailable DAVISMORTEZA Unavailable [address] + [place] [address] BUTTERBAUGH, JANE/SILVER Unavailable [address] + [place] [address] D Unavailable Unavailable Unavailable DAVISMORTEZA Unavailable [address] + [place] [address] BUTTERBAUGH, JANE/SILVER Unavailable [address] + [place] [address] D Unavailable Unavailable Unavailable DAVISMORTEZA Unavailable [address] + [place] [address] BUTTERBAUGH, JANE/SILVER Unavailable [address] + [place] [address] D Unavailable Unavailable Unavailable DAVISMORTEZA Unavailable [address] + [place] [address] BUTTERBAUGH, JANE/SILVER Unavailable [address] + [place] [address] D Unavailable Unavailable Unavailable MORTEZA CANNON Unavailable [address] + [place] [address] BUTTERBAUGH, JANE/SILVER Unavailable [address] + [place] [address] D Unavailable Unavailable Unavailable MORTEZA CANNON Unavailable [address] + [place] [address] NELLI, JANE/SILVER Unavailable [address] + [place] [address] D Unavailable Unavailable Unavailable MORTEZA CANNON Unavailable [address] + [place] [address] RICKEYBAMELISSA, JANE/SILVER Unavailable [address] + [place] [address] D Unavailable Unavailable Unavailable MORTEZA CANNON Unavailable [address] + [place] [address] NELLI, JANE/SILVER Unavailable [address] + [place] [address] D Unavailable Unavailable Unavailable MORTEZA CANNON Unavailable [address] + [place] [address] RICKEYBAMELISSA, JANE/SILVER Unavailable [address] + [place] [address] D Unavailable Unavailable Unavailable MORTEZA CANNON Unavailable [address] + [place] [address] RICKEYBAMELISSA, JANE/SILVER Unavailable [address] + [place] [address] D Unavailable Unavailable Unavailable MORTEZA CANNON Unavailable [address] + [place] [address] NELLI, JANE/SILVER Unavailable [address] + [place] [address] D Unavailable Unavailable Unavailable MORTEZA CANNON Unavailable [address] + [place] [address] RICKEYBAMELISSA, JANE/SILVER Unavailable [address] + [place] [address] D Unavailable Unavailable Unavailable MORTEZA CANNON Unavailable [address] + [place] [address] BUTTERBAUGH, JANE/SILVER Unavailable [address] + [place] [address] D Unavailable Unavailable Unavailable DAVISMORTEZA Unavailable [address] + [place] [address] NELLI, JANE/SILVER Unavailable [address] + [place] [address] D Unavailable Unavailable Unavailable DAVISMORTEZA Unavailable [address] + [place] [address] NELLI, JANE/SILVER Unavailable [address] + [place] [address] D Unavailable Unavailable Unavailable DAVIS, MORTEZA Unavailable [address] + [place] [address] NELLI, JANE/SILVER Unavailable [address] + [place] [address] D Unavailable Unavailable Unavailable DAVISMORTEZA Unavailable [address] + [place] [address] NELLI, JANE/SILVER Unavailable [address] + [place] [address] D Unavailable Unavailable Unavailable DAVIS, MORTEZA Unavailable [address] + [place] [address] NELLI, JANE/SILVER Unavailable [address] + [place] [address] D Unavailable Unavailable Unavailable DAVISMORTEZA Unavailable [address] + [place] [address] RICKEYRADHAMELISSA JANE/SILVER Unavailable [address] + [place] [address] D Unavailable Unavailable Unavailable DAVISMORTEZA Unavailable [address] + [place] [address] RICKEYBAMELISSA, JANE/SILVER Unavailable [address] + [place] [address] D Unavailable Unavailable Unavailable DAVIS, MORTEZA Unavailable [address] + [place] [address] RICKEYBAMELISSA, JANE/SILVER Unavailable [address] + [place] [address] D Unavailable Unavailable Unavailable MORTEZA CANNON Unavailable [address] + [place] [address] NELLI JANE/SILVER Unavailable [address] + [place] [address] D Unavailable Unavailable Unavailable MORTEZA CANNON Unavailable [address] + [place] [address] NELLI JANE/SILVER Unavailable [address] + [place] [address] D Unavailable Unavailable Unavailable MORTEZA CANNON Unavailable [address] + [place] [address] NELLI JANE/SILVER Unavailable [address] + [place] [address] D Unavailable Unavailable Unavailable MORTEZA CANNON Unavailable [address] + [place] [address] NELLI JANE/SILVER Unavailable [address] + [place] [address] D Unavailable Unavailable Unavailable DAVISMORTEZA Stewart Unavailable [address] + [place] [address] NELLI JANE/SILVER Unavailable [address] + [place] [address] D Unavailable Unavailable Unavailable DAVIS MORTEZA Unavailable [address] + [place] [address] NELLI JANE/SILVER Unavailable [address] + [place] [address] D Unavailable Unavailable Unavailable DAVIS MORTEZA Unavailable [address] + [place] [address] Care Team Providers Name Role Phone LISSETH CLAUDIO Referring Unavailable JUVENCIO GUILLAUME Referring Unavailable LISSETH CLAUDIO Referring Unavailable LISSETH CLAUDIO Referring Unavailable KEM ANDUJAR Attending Unavailable KEM ANDUJAR Referring Unavailable LISSETH CLAUDIO Referring Unavailable LISSETH HANKS Admitting Unavailable IGNACIO NOVAK (RES) Attending Unavailable PARAMBILGUILLAUME Referring Unavailable PARAMBIL, GUILLAUME Attending Unavailable PARAMBIL, GUILLAUME Referring Unavailable AKHIL HOWARD (LEAD SUPPLY WORKER) Attending Unavailable GONZÁLEZ, LISSETH S Referring Unavailable DOMINIQUE WRIGHT Attending Unavailable TONELLI, AUSTEN R Admitting Unavailable ANDREAAMEENA LAGOS Attending Unavailable GONZÁLEZ, LISSETH S Referring Unavailable ROS CHRISTIE Admitting Unavailable RANJAN MITCHELL Attending Unavailable ABOUSSOUAN, LOUTFI S Referring Unavailable ABOUSSOUAN, LOUTFI S Referring Unavailable GONZÁLEZ, LISSETH S Referring Unavailable GONZÁLEZ, LISSETH S Referring Unavailable ALAPPAN, NARENDRAKUMAR Admitting Unavailable BANDARZHOU Attending Unavailable ALAPPAN, NARENDRAKUMAR Admitting Unavailable PAULBRENDA CRYSTAL Attending Unavailable MARI NOVA (CY) Referring Unavailable ALAPPAN, NARENDRAKUMAR Admitting Unavailable TONEAUSTEN GERMAIN R Attending Unavailable DAYSI GARCÍA Referring Unavailable ALAPPAN, NARENDRAKUMAR Admitting Unavailable TONELLIAUSTEN R Attending Unavailable GONZÁLEZ, LISSETH S Referring Unavailable GONZÁLEZ, LISSETH S Referring Unavailable ALAPPAN, NARENDRAKUMAR Admitting Unavailable BANDARZHOU Attending Unavailable GONZÁLEZ, LISSETH S Referring Unavailable GAEL VIEIRA Admitting Unavailable GAEL VIEIRA Attending Unavailable JOSE NAVA Admitting Unavailable ROS WAYNE Attending Unavailable ABOUSSOUAN, LOUTFI S Referring Unavailable ABOUSSOUAN, LOUTFI S Referring Unavailable DAYSI BYNUM (LEAD SUPPLY WORKER) Referring Unavailable ABOUSSOUAN, LOUTFI S Referring Unavailable SWANSON, ANDREW Referring Unavailable SWANSON, ANDREW Referring Unavailable GONZÁLEZ, LISSETH S Referring Unavailable ABRIL CHRISTINE Attending Unavailable KEM ANDUJAR Attending Unavailable HARRIET SAN Referring Unavailable PEYTON ROGERS Attending Unavailable ROS WAYNE Referring Unavailable GONZÁLEZ, LISSETH S Referring Unavailable KEM ANDUJAR Attending Unavailable KEM ANDUJAR Referring Unavailable GONZÁLEZ, LISSETH S Referring Unavailable KEM ANDUJAR Attending Unavailable MAGDALENA PARMAR ([facility]) Attending Unavailable MAGDALENA PARMAR ([facility]) Referring Unavailable MAGDALENA PARMAR ([facility]) Referring Unavailable MAGDALENA PARMAR ([facility]) Referring Unavailable GONZÁLEZ, LISSETH S Referring Unavailable [place], KWESI K Admitting Unavailable ALEJANDRO MADDEN () Attending Unavailable MAGDALENA PARMAR ([facility]) Referring Unavailable GONZÁLEZ, LISSETH S Referring Unavailable BRADSHAW, BIRD M Referring Unavailable BRADSHAW, BIRD M Referring Unavailable [place], KWESI K Referring Unavailable [place], KWESI K Referring Unavailable GONZÁLEZ, LISSETH S Referring Unavailable ALFRED, ALI Referring Unavailable GONZÁLEZ, LISSETH S Referring Unavailable GONZÁLEZ, LISSETH S Referring Unavailable YAMIL CHAVES ([facility]) Referring Unavailable CHANO MAGDALENA MOLINA ([facility]) Referring Unavailable GONZÁLEZ, LISSETH S Referring Unavailable ABRIL CHRISTINE Attending Unavailable ALEJANDRO MADDEN () Referring Unavailable BRADSHAW, BIRD M Admitting Unavailable JUSTO CADET Attending Unavailable GONZÁLEZ, LISSETH S Referring Unavailable ISHAAN BYRNE Attending Unavailable MIKEY DICKERSON Referring Unavailable LINNETTE COLIN Attending Unavailable LINNETTE COLIN Referring Unavailable GANTA, PEYTON Attending Unavailable GANTA, PEYTON Referring Unavailable GONZÁLEZ, LISSETH S Referring Unavailable KEM ANDUJAR Attending Unavailable KEM ANDUJAR Referring Unavailable ETHAN, [place] Admitting Unavailable KYM MONTGOMERY () Attending Unavailable GONZÁLEZ, LISSETH S Referring Unavailable WILLARD MARTÍNEZ Admitting Unavailable KYM MONTGOMERY) Attending Unavailable GONZÁLEZ, LISSETH S Referring Unavailable NEGRITO LUCERO ([facility]) Attending Unavailable GAEL SIMMONS Referring Unavailable GALDINO ZEE Attending Unavailable ETHAN, [place] Admitting Unavailable ETHANESTELA Attending Unavailable GONZÁLEZ, LISSETH S Referring Unavailable EDMUNDO SAPNA Admitting Unavailable STEVE WYATTNA Attending Unavailable VLTOSHIA, ANCA Consulting Unavailable Ganta, Peyton Primary Care Unavailable Malaika Chinchilla Attending Unavailable Magdalena Lewis Attending Unavailable Chano-Magdalena Molina Referring Unavailable Ganta, Peyton Primary Care Unavailable Ganta, Peyton Primary Care Unavailable MARY CHIRINOS Attending Unavailable MARY CHIRIONS Attending Unavailable Ganta, Peyton Primary Care Unavailable Ganta, Peyton Primary Care Unavailable MARY CHIRINOS Referring Unavailable MARY CHIRINOS Attending Unavailable Ganta, Peyton Primary Care Unavailable Magdalena Lewis Attending Unavailable Magdalena Lewis Referring Unavailable Ganta, Peyton Primary Care Unavailable Chano-Jesse, Magdalena Attending Unavailable Chano-Jesse, Magdalena Referring Unavailable MARY CHIRINOS Attending Unavailable Ganta, Peyton Primary Care Unavailable MARY CHIRINOS Referring Unavailable Ganta, Peyton Primary Care Unavailable Chano-Jesse, Magdalena Attending Unavailable Ganta, Peyton Primary Care Unavailable Chnao-Jesse, Magdalena Attending Unavailable Chano-Jesse, Magdalena Referring Unavailable [...] Unavailable Ganta, Peyton Primary Care Unavailable Chano-Jesse, Magdalnea Attending Unavailable Chano-Jesse, Magdalena Referring Unavailable Ganta, [...] Referring Unavailable Ganta, Peyton Primary Care Unavailable Chano-Jeses, Magdalena Attending Unavailable Chano-Jesse, Magdalena Referring Unavailable [...] ATTENDING STATUS SOURCE 06/22/2018 Active Non-pressure chronic ETHAN, [place] Active [place] ulcer of unspecified Clinic Main part of left lower [place] leg with fat layer Repository exposed / L97.922(ICD-10) 06/06/2018 Active Hemoperitoneum / KYM MONTGOMERY Active [facility] K66.1(ICD-10) (MD) Clinic Main [place] Repository 06/06/2018 Active Other disorders of [facility] Active [place] calcium metabolism / (MD) Clinic Main E83.59(ICD-10) [place] Repository 06/06/2018 Active Obesity, unspecified RA VALENTINAKESH Active [facility] / E66.9(ICD-10) (MD) Clinic Main [place] Repository 05/14/2018 Active Pain in right leg / RA VALENTINAKESH Active [place] M79.604(ICD-10) () Clinic Main [place] Repository 05/14/2018 Active Other disturbances of [facility] Active [place] skin sensation / () Clinic Main R20.8(ICD-10) [place] Repository 10/23/2017 Active Hemorrhage, not KALI, ISHAAN Active [facility] elsewhere classified Clinic Main / R58(ICD-10) [place] Repository 05/06/2018 Active Unspecified abdominal KALIISHAAN Torres Active [facility] pain / R10.9(ICD-10) Clinic Main [place] Repository 04/28/2018 Active Nausea with vomiting, JANCOSME, Active [place] unspecified / VARALAKSHMI Clinic Main R11.2(ICD-10) [place] Repository 05/23/2018 Unknown M79.606 - Pain in WILFRED LUCAS Active [facility] leg, unspecified / Community M79.606(ICD-10) Hospital Repository 05/21/2018 Unknown M79.662 - Pain in Ros Nam Active [facility] left lower leg / Community M79.662(ICD-10) Hospital Repository 04/03/2018 Active Unspecified open ALEJANDRO MADDEN Active [facility] wound of abdominal () Clinic Main wall, unspecified [place] quadrant without Repository penetration into peritoneal cavity, sequela / S31.109S(ICD-10) 04/03/2018 Active Mild protein-calorie ALEJANDRO MADDEN Active [place] malnutrition / () Clinic Main E44.1(ICD-10) [place] Repository 04/02/2018 Active Antiphospholipid ALEJANDRO MADDEN Active [facility] syndrome / () Clinic Main D68.61(ICD-10) [place] Repository 03/25/2018 Active [facility] (current) ALEJANDRO MADDEN Active [facility] use of anticoagulants () Clinic Main / Z79.01(ICD-10) [place] Repository 03/25/2018 Active Encounter for ALEJANDRO MADDEN Active [place] therapeutic drug () Clinic Main level monitoring / [place] Z51.81(ICD-10) Repository 03/15/2018 Active Chronic kidney ALEJANDRO MADDEN Active [facility] disease, stage 3 () Clinic Main (moderate) / [place] N18.3(ICD-10) Repository 03/15/2018 Active 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 / () Clinic Main D68.59(ICD-10) [place] Repository 03/15/2018 Active Acute embolism and ALEJANDRO MADDEN Active [facility] thrombosis of () Clinic Main inferior vena cava / [place] I82.220(ICD-10) Repository 03/15/2018 Active Peripheral vascular ALEJANDRO MADDEN Active [place] disease, unspecified () Clinic Main / I73.9(ICD-10) [place] Repository 03/11/2018 Active Unspecified ALEJANDRO MADDEN Active [place] protein-calorie () Clinic Main malnutrition / [place] E46(ICD-10) Repository 03/11/2018 Active Personal history of ALEJANDRO MADDEN Active [facility] other venous () Clinic Main thrombosis and [place] embolism / Repository Z86.718(ICD-10) 03/11/2018 Active Unspecified ALEJANDRO MADDEN Active [place] infectious disease / () Clinic Main B99.9(ICD-10) [place] Repository 03/11/2018 Active Cellulitis of other ALEJANDRO MADDEN Active [place] sites / () Clinic Main L03.818(ICD-10) [place] Repository 03/11/2018 Active Morbid (severe) ALEJANDRO MADDEN Active [place] obesity due to excess () Clinic Main calories / [place] E66.01(ICD-10) Repository 03/10/2018 Active 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) / [place] D75.82(ICD-10) Repository 02/18/2018 Active Pain in left leg / ALEJANDRO MADDEN Active [place] M79.605(ICD-10) () Clinic Main [place] Repository 01/22/2018 Active Pain in leg, ALEJANDRO MADDEN Active [place] unspecified / () Clinic Main M79.606(ICD-10) [place] Repository 01/22/2018 Active Chronic kidney ALEJANDRO MADDEN Active [place] disease, stage 4 () Clinic Main (severe) / [place] N18.4(ICD-10) Repository 01/22/2018 Active 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 / (MD) Clinic Main I42.8(ICD-10) [place] Repository 01/22/2018 Active Acute kidney failure ALEJANDRO MADDEN Active [facility] with tubular necrosis () Clinic Main / N17.0(ICD-10) [place] Repository 01/22/2018 Active Transfusion ALEJANDRO MADDEN Active [place] associated () Clinic Main circulatory overload [place] / E87.71(ICD-10) Repository 01/22/2018 Active Sepsis, unspecified ALEJANDRO MADDEN Active [place] organism / () Clinic Main A41.9(ICD-10) [place] Repository 01/22/2018 Active Severe sepsis with ALEJANDRO MADDEN Active [place] septic shock / () Clinic Main R65.21(ICD-10) [place] Repository 01/22/2018 Active Shock, unspecified / ALEJANDRO MADDEN Active [place] R57.9(ICD-10) () Clinic Main [place] Repository 01/22/2018 Active Cellulitis of left ALEJANDRO MADDEN Active [place] lower limb / () Clinic Main L03.116(ICD-10) [place] Repository 01/22/2018 Active Hypo-osmolality and ALEJANDRO MADDEN Active [place] hyponatremia / () Clinic Main E87.1(ICD-10) [place] Repository 01/22/2018 Active Other disorders of ALEJANDRO MADDEN Active [place] phosphorus metabolism () Clinic Main / E83.39(ICD-10) [place] Repository 01/22/2018 Active Cutaneous abscess of ALEJANDRO MADDEN Active [place] left lower limb / () Clinic Main L02.416(ICD-10) [place] Repository 01/22/2018 Active Chronic systolic ALEJANDRO MADDEN Active [place] (congestive) heart () Clinic Main failure / [place] I50.22(ICD-10) Repository 01/22/2018 Active Disorder of NA Active [facility] pigmentation, Clinic Main unspecified / [place] L81.9(ICD-10) Repository 01/22/2018 Active Anesthesia of skin / NA Active [facility] R20.0(ICD-10) Clinic Main [place] Repository 01/22/2018 Active Paresthesia of skin / NA Active [facility] R20.2(ICD-10) Clinic Main [place] Repository 01/12/2018 Unknown Z79.01 - [facility] Debbie, Active [facility] (current) use of [facility] anticoagulants / Hospital Z79.01(ICD-10) Repository 01/05/2018 Unknown D68.61 - Debbie, Active [facility] Antiphospholipid [place] syndrome / Hospital D68.61(ICD-10) Repository 12/15/2017 Active Unspecified ROS WAYNE Active [facility] atherosclerosis of Clinic Main curyung arteries of [place] extremities, Repository unspecified extremity / I70.209(ICD-10) 12/15/2017 Active Abnormal coagulation ROS WAYNE Active [facility] profile / Clinic Main R79.1(ICD-10) [place] Repository 12/15/2017 Active Personal history of ROS WAYNE Active [facility] diseases of the blood Clinic Main and blood-forming [place] organs and certain Repository disorders involving the immune mechanism / Z86.2(ICD-10) 12/15/2017 Active Shortness of breath / RSO WAYNE Active [place] R06.02(ICD-10) Clinic Main [place] Repository 12/01/2017 Active Left lower quadrant ROS WAYNE Active [place] pain / R10.32(ICD-10) Clinic Main [place] Repository 12/04/2017 Active Pneumonia, ROS WAYNE Active [place] unspecified organism Clinic Main / J18.9(ICD-10) [place] Repository 12/04/2017 Active Secondary ROS WAYNE Active [place] hypertension, Clinic Main unspecified / [place] I15.9(ICD-10) Repository 12/04/2017 Active Other reduced ROS WAYNE Active [place] mobility / Clinic Main Z74.09(ICD-10) [place] Repository 12/04/2017 Active Pneumonia due to ROS WAYNE Active [place] methicillin [facility] Main susceptible [place] Staphylococcus aureus Repository / J15.211(ICD-10) 12/04/2017 Active Pneumonia due to ROS WAYNE Active [place] hemophilus influenzae Clinic Main / J14(ICD-10) [place] Repository 12/04/2017 Active Personal history of ROS WAYNE [place]aimie [place] other infectious and Clinic Main parasitic diseases / [place] Z86.19(ICD-10) Repository 12/01/2017 Active Other symptoms and BANDAR, ZHOU [facility] signs involving the Clinic Main musculoskeletal [place] system / Repository R29.898(ICD-10) 12/01/2017 Active Pneumonia due to BANDAR, ZHOU [facility] other gram-negative Clinic Main bacteria / [place] J15.6(ICD-10) Repository 12/01/2017 Active Hemoptysis / BANDAR, ZHOU [place] R04.2(ICD-10) Clinic Main [place] Repository 12/01/2017 Active Acute kidney failure, BANDAR, ZHOU Bass unspecified / [facility] N17.9(ICD-10) [place] Repository 10/23/2017 Active Acute posthemorrhagic BANDAR, ZHOU [facility] anemia / D62(ICD-10) Clinic Main [place] Repository 10/25/2017 Active Thrombocytopenia, BANDAR, ZHOU [facility] unspecified / [facility] D69.6(ICD-10) [facility] Repository 10/25/2017 Active Dependence on renal BANDAR, ZHOU [facility] dialysis / Clinic [facility] Z99.2(ICD-10) [facility] Repository 10/25/2017 Active Renovascular BANDAR, ZHOU [facility] hypertension / [facility] I15.0(ICD-10) [facility] Repository 10/25/2017 Active Polyneuropathy in BANDAR, ZHOU Bass diseases classified Clinic Main elsewhere / [place] G63(ICD-10) Repository 10/25/2017 Active Generalized edema / BANDAR, ZHOU Bass R60.1(ICD-10) Clinic Main [place] Repository 10/25/2017 Active Other malaise / BANDAR, ZHOU [facility] R53.81(ICD-10) Clinic [facility] [place] Repository 10/25/2017 Active Unsteadiness on feet BANDAR, ZHOU [facility] / R26.81(ICD-10) Clinic Main [place] Repository 10/25/2017 Active Other specified BANDAR, ZHOU Bass disorders of muscle / Clinic [facility] M62.89(ICD-10) [facility] Repository 10/25/2017 Active Low back pain / BANDAR, ZHOU Bass M54.5(ICD-10) Clinic Main [place] Repository 10/25/2017 Active Lymphedema, not BANDAR, ZHOU Active [facility] elsewhere classified Clinic Main / I89.0(ICD-10) [facility] Repository 10/23/2017 Active Acute embolism and EDMUNDOSAPNA Active [place] thrombosis of Clinic Other unspecified deep [place] veins of unspecified Repository lower extremity / I82.409(ICD-10) 10/23/2017 Active Unspecified diastolic SAPNA WYATT Active [place] (congestive) heart Clinic Other failure / [place] I50.30(ICD-10) Repository 10/22/2017 Active 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 / I82.3(ICD-10) [facility] Repository 10/22/2017 Active Hemorrhage from other JANICE MITCHELLIT Active [facility] sites in respiratory Clinic Main passages / [place] R04.89(ICD-10) Repository 10/13/2017 Active Other chest pain / MITCHELLRANJAN NAQVI Active [facility] R07.89(ICD-10) Clinic Main [facility] Repository 10/13/2017 Active Foot drop, left foot RANJAN MITCHELL Active [facility] / M21.372(ICD-10) Clinic Main [place] Repository 10/13/2017 Active Mononeuropathy, MITCHELL, RANJAN Active [facility] unspecified / [facility] G58.9(ICD-10) [facility] Repository 10/24/2017 Unknown R04.89 - Hemorrhage Dewayne, Mitch Active [facility] from other sites in Community respiratory passages Hospital / R04.89(ICD-10) Repository 10/24/2017 Unknown J80 - Acute Dewayne, Mitch Active [facility] respiratory distress Community syndrome / Hospital J80(ICD-10) Repository 10/24/2017 Unknown N17.9 - Acute kidney Dewayne, Mitch Active [facility] failure, unspecified Community / N17.9(ICD-10) Hospital Repository 10/24/2017 Unknown D64.9 - Anemia, Dewayne, Mitch Active [facility] unspecified / Community D64.9(ICD-10) Hospital Repository 10/24/2017 Unknown D69.6 - Dewayne, Mitch Active [facility] Thrombocytopenia, Community unspecified / Hospital D69.6(ICD-10) Repository 10/24/2017 Unknown Z86.718 - Personal Dewayne, Mitch Active [facility] history of other Community venous thrombosis and Hospital embolism / Repository Z86.718(ICD-10) 10/24/2017 Unknown I10 - Essential Mitch Buchanan Active [facility] (primary) Community hypertension / Hospital I10(ICD-10) Repository 10/24/2017 Unknown E66.01 - Morbid Mitch Buchanan Active [facility] (severe) obesity due Community to excess calories / Hospital E66.01(ICD-10) Repository 10/24/2017 Unknown J30.9 - Allergic DewayneMitch neumann Active [facility] rhinitis, unspecified Community / J30.9(ICD-10) Hospital Repository 10/24/2017 Unknown K21.9 - Mitch Buchanan Active [facility] Gastro-esophageal Community reflux disease Hospital without esophagitis / Repository K21.9(ICD-10) 10/05/2017 Active Dysuria / ANDREA, AMEENA Active [facility] R30.0(ICD-10) Clinic Main [facility] Repository 08/28/2017 Active Systemic inflammatory ANDREA, AMEENA Active [facility] response syndrome Clinic [facility] (sirs) of [place] non-infectious origin Repository without acute organ dysfunction / R65.10(ICD-10) 03/12/2017 Active Pulmonary ANDREA, AMEENA Active [facility] hypertension, Clinic Main unspecified / [facility] I27.20(ICD-10) Repository 03/12/2017 Active Acute and chronic ANDREA, AMEENA Active [facility] respiratory failure Clinic Main with hypoxia / [facility] J96.21(ICD-10) Repository 09/29/2017 Active Hypoxemia / ANDREA, AMEENA Active [facility] R09.02(ICD-10) Clinic Main [facility] Repository 09/29/2017 Active Acute respiratory ANDREA, AMEENA Active [facility] failure with hypoxia Clinic Main / J96.01(ICD-10) [facility] Repository 09/29/2017 Active Essential (primary) ANDREA, AMEENA Active [facility] hypertension / Clinic [facility] I10(ICD-10) [facility] Repository 09/29/2017 Active Polyneuropathy, ANDREA, AMEENA Active [facility] unspecified / Clinic [facility] G62.9(ICD-10) [facility] Repository 08/29/2017 Active Bacteremia / IGNACIO NOVAK Active [place] R78.81(ICD-10) (RES) Clinic Main [facility] Repository 08/28/2017 Active Generalized skin SCARLETIGNACIO Active [place] eruption due to drugs (RES) Clinic Main and medicaments taken [place] internally / Repository L27.0(ICD-10) 08/28/2017 Active Sepsis due to IGNACIO NOVAK Active [place] Enterococcus / (RES) Clinic Main A41.81(ICD-10) [facility] Repository 08/27/2017 Active Unspecified severe SCARLETIGNACIO RAMIREZ Active [place] protein-calorie (RES) Clinic Main malnutrition / [facility] E43(ICD-10) Repository 08/25/2017 Active Other pancytopenia / SCARLETIGNACIO RAMIREZ Active [place] D61.818(ICD-10) (RES) Clinic Main [facility] Repository 08/25/2017 Active Fever, unspecified / SCARLETIGNACIO RAMIREZ Active [facility] R50.9(ICD-10) (RES) Clinic Main [facility] Repository 08/25/2017 Active Enterocolitis due to SCARLETIGNACIO RAMIREZ Active [facility] Clostridium (RES) Clinic Main difficile, recurrent [place] / A04.71(ICD-10) Repository 08/25/2017 Active Unspecified SCARLETIGNACIO RAMIREZ Active [facility] streptococcus as the (RES) Clinic Main cause of diseases [facility] classified elsewhere Repository / B95.5(ICD-10) 08/25/2017 Active Enterocolitis due to SCARLETIGNACIO RAMIREZ Active [place] Clostridium (RES) Clinic Main difficile, not [place] specified as Repository recurrent / A04.72(ICD-10) 08/25/2017 Active Fever presenting with IGNACIO NOVAK Active [facility] conditions classified (RES) Clinic Main elsewhere / [place] R50.81(ICD-10) Repository 08/25/2017 Active Other specified IGNACIO NOVAK Active [place] health status / (RES) Clinic Main Z78.9(ICD-10) [facility] Repository 07/19/2017 Active Unknown / NA Active [facility] UNK(Unknown) Clinic Main [facility] Repository 06/05/2018 Unknown D75.82 - Heparin MARY CHIRINOS Active [facility] induced [facility] ([facility] / Repository D75.82(ICD-10) PROCEDURES PROCEDURES No Procedure Records FoundRESULTS RESULTS EMERGENCY DEPARTMENT Observed: 06/20/2018 Status: F Source: [facility] SUMMARY 12:38 AM [facility] REPOSITORY [facility] Medical Records Department [address] [place] [address] Emergency Department Summary 06/19/18 2225 MR#: [id number] Acct: [id number] Name: PALOMA CANNON Rep #: [id number] : 1990 28 From: Malaika Chinchilla MD [...] any opiate medication for home due to [place] state laws. However patient's pain was treated [...] to calciphylaxis This note was generated with [employer] dictation software. It may contain incorrect words, [...] problems, contact your Primary Care Provider. Call [facility] Registry ([phone]) or report to the closest Emergency Room. Call 911 if necessary. 06/20/18 0038 <Electronically signed by Malaika Chinchilla MD> Date Malaika Chinchilla MD Cosigner Signature (If Indicated): Date CC: Peyton Rogers MD DISCHARGE INSTRUCTION Observed: 06/20/2018 Status: F Source: MICAH 12:38 AM [facility] REPOSITORY [facility] Medical Records Department [address] [place] [address] Discharge Instruction 06/19/18 2323 MR#: [id number] Acct: [id number] Name: PALMOA CANNON Rep #: [id number] : 1990 28 From: Malaika Chinchilla MD [...] your Primary Care Provider. Call [facility] ([phone]) or report to the closest Emergency Room. Call 911 if necessary. 06/20/18 0038 <Electronically signed by Malaika Chinchilla MD> Date Malaika Chinchilla MD Cosigner Signature (If Indicated): Date CC: Peyton Rogers MD PROTHROMBIN TIME W/INR Collected: 06/19/2018 Status: F Source: MICAH 10:44 PM [facility] REPOSITORY TYPE CODE TESTS RESULT OUT OF RANGE REFERENCE UNITS LAB L300.4150 11.7-14.9 SECONDS High PROTIME 22.2 LAB L300.4200 Normal INR 1.9 Performed By: #### L300.3900 #### [facility] [address] [facility] [place], [address] PROTHROMBIN TIME W/INR Collected: 06/18/2018 Status: F Source: CHARLO 8:23 AM [facility] REPOSITORY TYPE CODE TESTS RESULT OUT OF RANGE REFERENCE UNITS LAB L300.4150 11.7-14.9 SECONDS High PROTIME 19.2 LAB L300.4200 Normal INR 1.6 Performed By: #### L300.3900 #### [facility] [address] [facility] [place], [address] PROTHROMBIN TIME W/INR Collected: 06/15/2018 Status: F Source: CHARLO 8:49 AM [facility] REPOSITORY TYPE CODE TESTS RESULT OUT OF RANGE REFERENCE UNITS LAB L300.4150 11.7-14.9 SECONDS High PROTIME 20.9 LAB L300.4200 Normal INR 1.8 Performed By: #### L300.3900 #### [facility] [address] [place], [address] EMERGENCY DEPARTMENT Observed: 06/10/2018 Status: F Source: CHARLO SUMMARY 3:45 AM [facility] REPOSITORY [facility] Medical Records Department [address] [place] [address] Emergency Department Summary 06/10/18 0143 MR#: [id number] Acct: [id number] Name: PALOMA CANNON Rep #: [id number] : 1990 28 From: Wilfred Lucas MD [...] she is due for another treatment at [facility] in just over 24 hours from now. She presents now because her oxycodone has not really the chronic pain that she has in her back that she associates with the retroperitoneal hematoma. She states in [place], they have told her that it is [...] She states when she was transferred to [place] several days ago, they evaluated her with [...] your Primary Care Provider. Call [facility] ([phone]) or report to the closest Emergency Room. Call 911 if necessary. 06/10/18 0345 <Electronically signed by Wilfred Lucas MD> Date Wilfred Lucas MD Cosigner Signature (If Indicated): Date CC: Peyton Rogers MD CBC-COMPLETE BLOOD CNT Collected: 06/10/2018 Status: F Source: MICAH NO DIFF 2:00 AM [facility] REPOSITORY TYPE CODE TESTS RESULT OUT [...] MPV 10.1 Performed By: #### L100.0500 #### [facility] [address] [facility]. [place], [place], [address] PROTHROMBIN TIME W/INR Collected: 06/10/2018 Status: F Source: CHARLO 2:00 AM [facility] REPOSITORY TYPE CODE TESTS RESULT OUT OF RANGE REFERENCE UNITS LAB L300.4150 11.7-14.9 SECONDS High PROTIME 26.6 LAB L300.4200 Normal INR 2.4 Performed By: #### L300.3900 #### [facility] [address] [place], [address] BASIC METABOLIC Collected: 06/10/2018 Status: F Source: CHARLO PROFILE (BMP) 2:00 AM [facility] REPOSITORY TYPE CODE TESTS RESULT OUT [...] GAP 6 Performed By: #### L500.2500 #### [facility] [address] [facility] [place], [address] ABDOMEN/PELVIS WITHOUT Observed: 06/10/2018 Status: F Source: CHAR[place] CONT 1:44 AM [facility] REPOSITORY [facility] Imaging Services [address] [place] [address] Abdomen/Pelvis without Cont MR#: [id number] Acct: [id number] Name: PALOMA CANNON Rep #: [id number] : 1990 F 28 From: Zhou Lowe MD PCP: Peyton Rogers MD Status: REG ER Study: Abdomen/Pelvis without Cont Date of Exam: 06/10/18 Exam# [id number] Ordering Dr: Wilfred Lucas MD HISTORY: LT SIDED ABDOMEN PAIN WITH SHOCKS DOWN HER LEGS,PT HAS REOCCURING RETROPERITONEAL HEMATOMA,[facility],CLOTTING DISORDER-ANTIPHOSPHOLIPID ANTIBODY SYNDROMESURGERY:CHOLECYSTECTOMY,ABDOMINAL STENT TECHNIQUE: Helically [...] CC: WILFRED LUCAS MD; Peyton Rogers MD Pie Topper: Signed PROTHROMBIN TIME W/INR Collected: 06/08/2018 Status: F Source: MICAH 10:30 AM [facility] REPOSITORY TYPE CODE TESTS RESULT OUT OF RANGE REFERENCE UNITS LAB L300.4150 11.7-14.9 SECONDS High PROTIME 22.2 LAB L300.4200 Normal INR 1.9 Performed By: #### L300.3900 #### [facility] [address] [facility] [place], [address] EMERGENCY DEPARTMENT Observed: 06/04/2018 Status: F Source: CHARLO SUMMARY 11:12 PM [facility] REPOSITORY [facility] Medical Records Department [address] [place] [address] Emergency Department Summary 06/04/182051 MR#: [id number] Acct: [id number] Name: PALOMA CANNON Rep #: [id number] : 1990 28 From: Fany Littlejohn MD PCP: Peyton Rogers MD Status: REG ER - ER Visit Summary Date of Service: 06/04/18 Chief Complaint: Left flank pain History of Present Illness: The patient is a 28 F with history of antiphospholipid antibody who is on Coumadin and gets plasmapheresis through the [facility] presents to the emergency department with left [...] was accepted. She will be transferred to [facility] for definitive care of her recurrent retroperitoneal hematoma. Treatment Plan: [] Disposition: Transferred Impression: 1. Recurrent left retroperitoneal hematoma 2. History of antiphospholipid antibody syndrome This note was generated with [employer] dictation software. It may contain incorrect words, [...] problems, contact your Primary Care Provider. Call [facility] Registry ([phone]) or report to the closest Emergency Room. Call 911 if necessary. 06/04/18 2312 <Electronically signed by Fany Littlejohn MD> Date Fany Littlejohn MD Cosigner Signature (If Indicated): Date CC: Peyton Rogers MD URINALYSIS, COMPLETE Collected: 06/04/2018 Status: F Source: MICAH 10:15 PM [facility] REPOSITORY Order Comment: Order Date: 06/04/18 How [...] URINE SEEN Performed By: #### L400.0001 #### [facility] [address] [place], [address] COMPREHENSIVE METABOLIC Collected: 06/04/2018 Status: F Source: [facility] 8:59 PM [facility] REPOSITORY TYPE CODE TESTS RESULT OUT [...] GAP 5 Performed By: #### L500.4050 #### [facility] [address] [place], [address] LACTIC ACID Collected: 06/04/2018 Status: F Source: CHARLO 8:59 PM [facility] REPOSITORY Order Comment: Yes/No query for Sepsis Lactate Rule Y TYPE CODE TESTS RESULT OUT OF RANGE REFERENCE UNITS LAB L503.6005 0.4-2.0 mmol/L Normal LACTIC ACID 1.3 Performed By: #### L503.6005 #### [facility] [address] [place], [address] CBC W/DIFF, AUTOMATED Collected: 06/04/2018 Status: F Source: [place] 8:59 PM [facility] REPOSITORY TYPE CODE TESTS RESULT OUT [...] LYMPHOPENIA NOTED Performed By: #### L100.0100 #### [facility] [address] [place], [address] PROTHROMBIN TIME W/INR Collected: 06/04/2018 Status: F Source: [place] 8:59 PM [facility] REPOSITORY TYPE CODE TESTS RESULT OUT OF RANGE REFERENCE UNITS LAB L300.4150 11.7-14.9 SECONDS High PROTIME 18.9 LAB L300.4200 Normal INR 1.6 Performed By: #### L300.3900, L300.4310 #### [facility] [address] [facility] [place], [address] PARTIAL THROMBOPLAST Collected: 06/04/2018 Status: F Source: [place] TIME 8:59 PM [facility] REPOSITORY TYPE CODE TESTS RESULT OUT OF REFERENCE UNITS RANGE LAB L300.4310 24.1-36.2 Seconds High PTT 51.0 Performed By: #### L300.3900, L300.4310 #### [facility] [address] [facility] [place], [address] ABDOMEN/PELVIS WITHOUT Observed: 06/04/2018 Status: F Source: MICAH CONT 8:51 PM [facility] REPOSITORY [facility] Imaging Services [address] [place] [address] Abdomen/Pelvis without Cont MR#: [id number] Acct: [id number] Name: PALOMA CANNON Rep #: [id number] : 1990 F 28 From: Hood Rice DO PCP: Peyton Rogers MD Status: REG ER Study: Abdomen/Pelvis without Cont Date of Exam: 06/04/18 Exam# [id number] Ordering Dr: Fany Littlejohn MD STUDY: CT [...] Hood Rice DO at 22:01 EST Tel [phone], Service support , CC: Peyton Rogers MD; Fany Littlejohn MD Pie Topper: Signed PROTHROMBIN TIME W/INR Collected: 06/04/2018 Status: F Source: MICAH 9:01 AM [facility] REPOSITORY TYPE CODE TESTS RESULT OUT OF RANGE REFERENCE UNITS LAB L300.4150 11.7-14.9 SECONDS High PROTIME 19.3 LAB L300.4200 Normal INR 1.6 Performed By: #### L300.3900 #### [facility] [address] [place], [address] PROTHROMBIN TIME W/INR Collected: 05/11/2018 Status: F Source: MICAH 8:01 AM [facility] REPOSITORY TYPE CODE TESTS RESULT OUT OF RANGE REFERENCE UNITS LAB L300.4150 11.7-14.9 SECONDS High PROTIME 31.2 LAB L300.4200 Normal INR 3.0 Performed By: #### L300.3900 #### [facility] [address] [place], [address] PROTHROMBIN TIME W/INR Collected: 05/04/2018 Status: F Source: MICAH 8:01 AM [facility] REPOSITORY TYPE CODE TESTS RESULT OUT OF RANGE REFERENCE UNITS LAB L300.4150 11.7-14.9 SECONDS High PROTIME 21.1 LAB L300.4200 Normal INR 1.8 Performed By: #### L300.3900 #### [facility] [address] [facility] [place], [address] EMERGENCY DEPARTMENT Observed: 04/29/2018 Status: F Source: MICAH SUMMARY 5:06 AM [facility] REPOSITORY [facility] Medical Records Department [address] [place] [address] Emergency Department Summary 04/24/18 0332 MR#: [id number] Acct: [id number] Name: PALOMA CANNON Rep #: [id number] : 1990 28 From: Wilfred Lucas MD [...] for which she gets regular plasmapheresis at [facility], has a problem with bleeding and clotting, [...] is admitted, it is almost always at [facility] because that is where all of her [...] plan will be to discuss with her director equipment at [facility], Dr. Andujar. She could possibly be discharged with close outpatient follow-up. We do carry bivalirudin at this hospital. The patient states she will likely prefer to be admitted at [facility] if she needs admission, since all of [...] your Primary Care Provider. Call [facility] ([phone]) or report to the closest Emergency Room. Call 911 if necessary. 04/29/18 0506 <Electronically signed by Wilfred Lucas MD> Date Wilfred Lucas MD Cosigner Signature (If Indicated): Date CC: Peyton Rogers MD PROTHROMBIN TIME W/INR Collected: 04/27/2018 Status: F Source: CHARLO 7:53 AM [facility] REPOSITORY Order Comment: Comments: ORDERED BY [facility], FAX [phone] TYPE CODE TESTS RESULT OUT OF RANGE REFERENCE UNITS LAB L300.4150 11.7-14.9 SECONDS High PROTIME 19.9 LAB L300.4200 Normal INR 1.7 Performed By: #### L300.3900 #### [facility] [address] [facility] [place], [address] VENOUS DUPLEX LOWER Observed: 04/24/2018 Status: F Source: CHARLO EXTREMITY 5:30 PM [facility] REPOSITORY [facility] Cardiovascular Services [address] [place] [address] Venous Duplex US, Unilateral 04/24/18 0802 MR#: [id number] Acct: [id number] Name: PALOMA CANNON Rep #: [id number] : 1990 28 From: Ros Nam MD [...] Referring Physician: Magdalena Lewis Performed By: Giovanni Heaton RVT 04/24/181728 Date Ros Nam MD CC: WILFRED LUCAS MD; Peyton Rogers MD Date Dictated: 04/24/18801 Date Transcribed: 04/24/181728 Pie Topper: Signed DISCHARGE INSTRUCTION Observed: 04/24/2018 Status: F Source: MICAH 4:23 PM [facility] REPOSITORY [facility] Medical Records Department [address] [place] [address] Discharge Instruction 04/24/18 0934 MR#: [id number] Acct: [id number] Name: PALOMA CANNON Rep #: [id number] : 1990 28 From: Ignacio Rider MD [...] your Primary Care Provider. Call [facility] ([phone]) or report to the closest Emergency Room. Call 911 if necessary. 04/24/18 1623 <Electronically signed by Ignacio Rider MD> Date Ignacio Rider MD Cosigner Signature (If Indicated): Date CC: Peyton Rogers MD EMERGENCY DEPARTMENT Observed: 04/24/2018 Status: F Source: CHARLO SUMMARY 4:23 PM [facility] REPOSITORY [facility] Medical Records Department [address] [place] [address] Emergency Department Summary 04/24/18 0937 MR#: [id number] Acct: [id number] Name: PALOMA CANNON Rep #: [id number] : 1990 28 From: Ignacio Rider MD PCP: Peyton Rogers MD Status: [facility] ER - ER Visit Summary Date of [...] Ly, the nurse for Dr. Andujar her director equipment. She asked that we discharge her with prescription for 20 Percocet and have her see her director equipment in 6 days when she receives her plasmapheresis. She reviewed the notes and sees that she is Joey spoken with someone about how to change her Coumadin dosing. Return to the emergency department for any worsening symptoms. Disposition: To home in improved and stable condition. Impression: 1. Left leg pain. 2. Subtherapeutic INR. 3. History of antiphospholipid antibody. This note was generated with [employer] dictation software. It may contain incorrect words, [...] your Primary Care Provider. Call [facility] ([phone]) or report to the closest Emergency Room. Call 911 if necessary. 04/24/18 1682 <Electronically signed by Ignacio Rider MD> Date Ignacio Rider MD Cosigner Signature (If Indicated): Date CC: Peyton Rogers MD CBC W/DIFF, AUTOMATED Collected: 04/24/2018 Status: F Source: MICAH 3:40 AM [facility] REPOSITORY TYPE CODE TESTS RESULT OUT [...] Lymph 0.62 Performed By: #### L100.0100 #### [facility] [address] [place], [address] BASIC METABOLIC Collected: 04/24/2018 Status: F Source: MIC[facility] PROFILE (BMP) 3:40 AM [facility] REPOSITORY TYPE CODE TESTS RESULT OUT [...] GAP 8 Performed By: #### L500.2500 #### [facility] [address] [place], [place], [address] PROTHROMBIN TIME W/INR Collected: 04/23/2018 Status: F Source: CHARLO 8:02 AM [facility] REPOSITORY TYPE CODE TESTS RESULT OUT OF RANGE REFERENCE UNITS LAB L300.4150 11.7-14.9 SECONDS High PROTIME 20.4 LAB L300.4200 Normal INR 1.7 Performed By: #### L300.3900 #### [facility] [address] [place], [place], [address] PROTHROMBIN TIME W/INR Collected: 04/20/2018 Status: F Source: CHARLO 8:06 AM [facility] REPOSITORY TYPE CODE TESTS RESULT OUT OF RANGE REFERENCE UNITS LAB L300.4150 11.7-14.9 SECONDS High PROTIME 24.1 LAB L300.4200 Normal INR 2.2 Performed By: #### L300.3900 #### [facility] [address] [place], [address] PROTHROMBIN TIME W/INR Collected: 04/12/2018 Status: F Source: [place] 8:07 AM [facility] REPOSITORY TYPE CODE TESTS RESULT OUT OF RANGE REFERENCE UNITS LAB L300.4150 11.7-14.9 SECONDS High PROTIME 23.5 LAB L300.4200 Normal INR 2.1 Performed By: #### L300.3900 #### [facility] [address] [place], [address] PROTHROMBIN TIME W/INR Collected: 04/09/2018 Status: F Source: [place] 8:30 AM [facility] REPOSITORY TYPE CODE TESTS RESULT OUT OF RANGE REFERENCE UNITS LAB L300.4150 11.7-14.9 SECONDS High PROTIME 18.5 LAB L300.4200 Normal INR 1.5 Performed By: #### L300.3900 #### [facility] [place], [address] PROTHROMBIN TIME W/INR Collected: 04/05/2018 Status: F Source: CHARLO 8:13 AM [facility] REPOSITORY TYPE CODE TESTS RESULT OUT OF RANGE REFERENCE UNITS LAB L300.4150 11.7-14.9 SECONDS High PROTIME 20.3 LAB L300.4200 Normal INR 1.7 Performed By: #### L300.3900 #### [facility] [address] [place], [address] PROTHROMBIN TIME W/INR Collected: 01/19/2018 Status: F Source: [place] 8:03 AM [facility] REPOSITORY TYPE CODE TESTS RESULT OUT OF REFERENCE UNITS RANGE LAB L300.4150 11.7-14.9 SECONDS High PROTIME 39.9 LAB L300.4200 High alert INR 4.1 Result Comment: CRITICAL VALUE VERIFIED. CALLED TO MAGDALENA [facility]WIS [facility] 01/19/18 0838 Zhou Nava. RESULTS READ BACK BY SAME. Performed By: #### L300.3900 #### [facility] [address] [place], [address] PROTHROMBIN TIME W/INR Collected: 01/12/2018 Status: F Source: [place] 8:05 AM [facility] REPOSITORY TYPE CODE TESTS RESULT OUT OF RANGE REFERENCE UNITS LAB L300.4150 11.7-14.9 SECONDS High PROTIME 24.7 LAB L300.4200 Normal INR 2.2 Performed By: #### L300.3900 #### [facility] [address] [place], [address] PROTHROMBIN TIME W/INR Collected: 01/05/2018 Status: F Source: [place] 8:20 AM [facility] REPOSITORY TYPE CODE TESTS RESULT OUT OF RANGE REFERENCE UNITS LAB L300.4150 11.7-14.9 SECONDS High PROTIME 34.6 LAB L300.4200 Normal INR 3.4 Performed By: #### L300.3900 #### [facility] [place], [address] PROTHROMBIN TIME W/INR Collected: 01/02/2018 Status: F Source: [place] 7:55 AM [facility] REPOSITORY TYPE CODE TESTS RESULT OUT OF RANGE REFERENCE UNITS LAB L300.4150 11.7-14.9 SECONDS High PROTIME 27.8 LAB L300.4200 Normal INR 2.6 Performed By: #### L300.3900 #### [facility] [address] [place], [address] PROTHROMBIN TIME W/INR Collected: 12/29/2017 Status: F Source: [place] 8:10 AM [facility] REPOSITORY TYPE CODE TESTS RESULT OUT OF RANGE REFERENCE UNITS LAB L300.4150 11.7-14.9 SECONDS High PROTIME 18.0 LAB L300.4200 Normal INR 1.5 Performed By: #### L300.3900 #### [facility] [address] [place], [address] PROTHROMBIN TIME W/INR Collected: 12/22/2017 Status: F Source: [place] 8:15 AM [facility] REPOSITORY TYPE CODE TESTS RESULT OUT OF REFERENCE UNITS RANGE LAB L300.4150 11.7-14.9 SECONDS High PROTIME 36.7 LAB L300.4200 High alert INR 3.7 Result Comment: CRITICAL VALUE VERIFIED. CALLED TO BEATRIZ [facility] 12/22/17 0858 Zhou Nava. RESULTS READ BACK BY SAME. Performed By: #### L300.3900 #### [facility] [address] [place], [address] PROTHROMBIN TIME W/INR Collected: 12/19/2017 Status: F Source: [place] 8:12 AM [facility] REPOSITORY TYPE CODE TESTS RESULT OUT OF REFERENCE UNITS RANGE LAB L300.4150 11.7-14.9 SECONDS High PROTIME 45.0 LAB L300.4200 High alert INR 4.8 Result Comment: CRITICAL VALUE VERIFIED. CALLED TO INDRA AT [facility] 12/19/17 0835 Aline Deejay. RESULTS READ BACK BY SAME . Performed By: #### L300.3900 #### [facility] [address] [place], [address] PROTIME Collected: 12/04/2017 Status: F Source: [place] 1:15 PM [facility] REPOSITORY TYPE CODE TESTS RESULT OUT OF RANGE REFERENCE UNITS LAB PSEC 9.7-13.0 sec High PT Sec 31.6 LAB INR 0.9-1.3 High PT INR 3.3 Result Comment: Vitamin K Antagonist (VKA) Therapeutic Range: INR 2 to 3 (Target INR of 2.5) Note: For patients treated with VKA drugs, such as warfarin, the [place] 2012 Guideline recommends [...] Chest 2012, 141:7S-47S Diogenes RA, et al. [facility] 2017, 70: 252-289 Performed By: #### PT, CMP, CBCDIF #### [facility] [address] [place], [place] [address] COMP METABOLIC PANEL Collected: 12/04/2017 Status: F Source: [place] 1:15 PM [facility] REPOSITORY TYPE CODE TESTS RESULT OUT OF REFERENCE UNITS RANGE LAB TP 6.3-8.0 g/dL Low Protein, Total 6.2 LAB ALB 3.9-4.9 g/dL Low Albumin 3.5 LAB CA 8.5-10.2 mg/dL Calcium, Total 9.0 LAB TBIL 0.2-1.3 mg/dL Bilirubin, Total 0.6 LAB ALKP 32-117 U/L Alkaline Phosphatase 59 LAB AST 13-35 U/L Low AST 11 LAB GLU 74-99 mg/dL Glucose 99 Result Comment: The [place] Diabetes [employer] (ADA) provides guidance for cutoff [...] Standards of Medical Care in Diabetes 2016, [place] [employer]. Diabetes Care. 2016.39(Suppl 1). LAB BUN 7-21 mg/dL BUN High 32 LAB CRET 0.58-0.96 mg/dL Creatinine High 1.09 LAB NA 136-144 mmol/L Sodium 140 LAB K 3.7-5.1 mmol/L Potassium 3.8 LAB CL 97-105 mmol/L Chloride 97 LAB CO2 22-30 mmol/L CO2 29 LAB AGAP 9-18 mmol/L Anion Gap 14 LAB ALT 7-38 U/L ALT 10 LAB GFRAA eGFR- Amer. >60 LAB GFRNAA . eGFR-All Other Races 60 [...] actual GFR. Performed By: #### PT, CMP, CBCDIF #### [facility] [address] [place], [place] [address] CBC AND DIFFERENTIAL Collected: 12/04/2017 Status: F Source: [place] 1:15 PM [facility] REPOSITORY TYPE CODE TESTS RESULT OUT OF REFERENCE UNITS RANGE LAB WBC 3.70-11.00 k/uL WBC High 13.66 LAB RBC 3.90-5.20 m/uL RBC Low 3.63 LAB HGB 11.5-15.5 g/dL Hemoglobin 11.6 LAB HCT 36.0-46.0 % Hematocrit Low 35.2 LAB MCV 80.0-100.0 fL MCV 97.0 LAB MCH 26.0-34.0 pG MCH 32.0 LAB MCHC 30.5-36.0 g/dL MCHC 33.0 LAB RDWCV 11.5-15.0 % RDW-CV High 19.5 LAB PLTCT 150-400 k/uL Platelet Count Low 126 LAB MPV 9.0-12.7 fL MPV Low 8.5 LAB ANEUT % Neut% 92.2 LAB AANEUT 1.45-7.50 k/uL Abs Neut High 12.59 LAB ALYMP % Lymph% 2.6 LAB AALYMP 1.00-4.00 k/uL Abs Lymph Low 0.36 LAB AMONO % Hughes% 2.6 LAB AAMONO <0.87 k/uL Abs Hughes 0.36 LAB AEOS % Eosin% 0.0 LAB AAEOS <0.46 k/uL Abs Eosin 0.00 LAB ABASO % Baso% 0.0 LAB AABASO <0.11 k/uL Abs Baso 0.00 LAB AMETA % [place]% 1.7 LAB AMYELO % Myelo% 0.9 LAB ANIIMI Anisocytosis Present LAB LFTIMI Left Shift Present LAB POLIMI Polychromasia Slight LAB RCFIMI RBC Fragments Few LAB PLTEST Platelet Estimate Platelet estimate decreased LAB DTYP DTYPE Manual Diff Performed By: #### PT, CMP, CBCDIF #### [facility] [address] [address] URINALYSIS WITH Collected: 12/04/2017 Status: F Source: [facility] 1:15 PM [facility] REPOSITORY TYPE CODE TESTS RESULT OUT OF RANGE REFERENCE UNITS LAB UCOL Yellow Color Yellow LAB [facility] Clear Clarity Clear LAB UGLUC Negative mg/dL Glucose, Urine Negative LAB UBIL Negative Bilirubin, Urine Negative LAB UKET Negative Ketones, Urine Negative LAB USPG 1.005-1.030 Specific [place], Ur 1.008 LAB UHGB Negative Abnormal Hemoglobin/Blood, 1+ Alert Ur LAB UPH 4.5-8.0 pH 7.0 LAB UPROT Negative mg/dL Protein, Abnormal Urine [...] Epithelial Cells Performed By: #### UAWMIC #### [address] [address] [place] [id number] PROGRESS Observed: 12/04/2017 Status: COMPLETED Source: [place] 1:10 PM [facility] REPOSITORY HNO ID: [id number] Author: Benjamin Neal (Rt) Service: Radiology Author Type: Kapok And Cotton Machine Operator Type: Progress Notes Filed: 12/04/2017 1:10 PM Note Text: Radiology Service Progress Note PATIENT NAME: Paloma Cannon DATE OF SERVICE: December 04, 2017 TIME: 1:10 PM PATIENT IDENTITY VERIFICATION COMPLETED USING TWO (2) METHODS: Patient confirmed name verbally and ID band matches.. PATIENT GENDER DATA: Female. status: : No status: NO. PATIENT RELEVANT IMPLANT DATA REVIEWED: Not Applicable RADIOLOGY DEPARTMENT: General X-ray: Exam(s) Completed: Chest X-Ray PERIPHERAL IV DATA: Not applicable SIGNED BY: RT ZANDER December 04, 2017 1:10 PM ED NOTE Observed: 12/04/2017 Status: COMPLETED Source: [place] 1:09 PM [facility] [place] REPOSITORY HNO ID: [id number] Author: Marissa (Rn) JEFF Cormier Service: Emergency Medicine Author Type: Registered Nurse Type: ED Notes Filed: 12/04/2017 1:10 PM Note Text: Back from chest x ray XR CHEST 2V FRONTAL/LAT Observed: 12/04/2017 Status: F Source: [place] 1:08 PM [facility] REPOSITORY * * *Final Report* * * DATE OF EXAM: Dec 04 2017 1:08PM EGX [id number] - XR CHEST 2V FRONTAL/LAT / PROCEDURE REASON: Chest pain or SOB, pleurisy or effusion suspected * * * * Physician Interpretation * * * * EXAMINATION: XR CHEST 2V FRONTAL/LAT PATIENT/TECHNOLOGIST PROVIDED HISTORY: LEFT SIDE CHEST PAIN CLINICAL INFORMATION: Chest pain or SOB, pleurisy or effusion suspected M: [id number]_4 Comparison: 11/29/2017 RESULT: Lines, tubes, and devices: Two stable left-sided central venous catheters with tips in the right atrium. Lungs and pleura: Shallow inspiration. There are bilateral mixed interstitial and alveolar opacities, most significantly involving the left lower lobe. It is unclear whether this reflects asymmetric edema, or edema with superimposed left lower lobe infection. Appearance is worsened when compared with the prior exam. No pleural effusion or pneumothorax. Cardiomediastinal silhouette: Stable size and contour. Other: Bones are intact. IMPRESSION: PULMONARY EDEMA/FLUID OVERLOAD, POSSIBLY WITH SUPERIMPOSED LEFT LOWER LOBE PNEUMONIA. Pie Topper: MURTAZA Transcribe Date/Time: Dec 04 2017 1:49P Dictated by : KRISTEN ZHANG MD This examination was interpreted and the report reviewed and electronically signed by: MARK LARA MD on Dec 04 2017 2:32PM EST [id number] ED NOTE Observed: 12/04/2017 Status: COMPLETED Source: [place] 12:37 PM [facility] REPOSITORY HNO ID: [id number] Author: Jose Terry (Door Clamp Operator) PARMINDER Anderson Service: Emergency Medicine Author Type: Registered Resp Therapist Type: ED Notes Filed: 12/04/2017 12:44 PM Note Text: Patient to ED for left sided chest pain since this morning. Patient reports to be coughing up thick, creamy, dark francisco secretions. Usually wears 2L NC at home and SpO2 ranges at 95% per patient. Arrived to room on 6L NC SpO2 90%, NARD. Increased patient to HFNC bubbler @ 8lpm, SpO2 now ranging from 93-96%. Hx of pulmonary HTN, DIFFICULT AIRWAY, no breathing tx's at home. HR 97, RR 24, breath sounds are diminished throughout all lobes. Will continue to treat/monitor patient/await further orders. ED NOTE Observed: 12/04/2017 Status: COMPLETED Source: [place] 12:34 PM [facility] REPOSITORY HNO ID: [id number] Author: Marissa (Rn) JEFF Cormier Service: Emergency Medicine Author Type: Registered Nurse Type: ED Notes Filed: 12/04/2017 4:36 PM Note Text: SEE TRIAGE NOTE: chief complaint) Chronic edema from all the surgeries and currently on prednisone 40mg. Daily. Hx of PE And feels she has PE L lung now DVT's bilateral legs. . Hx of throbocytopenia. Off bactrim and cytoxin due to thrombocytopenia. Pain is sharp L chest area. Can not do CT contrast due to kidneys. Pt had dialysis the last time she was here. Pt has one Jairo cath (dialysis cath) and one Sanjana chest catheters. Last Aforesis last Monday. Pt has serous fluid draining from her R hip due to all the swelling. Pt states she was therapeutic on her coumadin. Pt also has hx of L pneumothorax r/t bronchoscopy over a year ago. Has had 22 surgeries called angio vac to suction the blood clots from her R ankle, L leg, heart vena cava. Pt has IVC filter and Y stent. CBC AND DIFFERENTIAL Collected: 12/03/2017 Status: F Source: [place] 5:24 AM [facility] REPOSITORY TYPE CODE TESTS RESULT OUT OF [...] Abs Lymph Low 0.64 LAB AMONO % Hughes% 7.9 LAB AAMONO <0.87 k/uL Abs Hughes 0.73 LAB AEOS % Eosin% 0.0 LAB AAEOS <0.46 k/uL Abs Eosin 0.00 LAB ABASO % Baso% 0.0 LAB AABASO <0.11 k/uL Abs Baso 0.00 LAB AMETA % [place]% 0.9 LAB AMYELO % Myelo% 5.3 LAB ANIIMI Anisocytosis Present LAB LFTIMI Left Shift Present LAB POLIMI Polychromasia Slight LAB RCFIMI RBC Fragments Few LAB PLTEST Platelet Estimate Platelet estimate adequate LAB DTYP DTYPE Manual Diff Performed By: #### CBCDIF, PT #### [facility] [address] [place], [place] [address] PROTIME Collected: 12/03/2017 Status: F Source: [place] 5:24 AM [facility] REPOSITORY TYPE CODE TESTS RESULT OUT OF RANGE REFERENCE UNITS LAB PSEC 9.7-13.0 sec High PT Sec 31.6 LAB INR 0.9-1.3 High PT INR 3.3 Result Comment: Vitamin K Antagonist (VKA) Therapeutic Range: INR 2 to 3 (Target INR of 2.5) Note: For patients treated with VKA drugs, such as warfarin, the [place] 2012 Guideline recommends [...] Chest 2012, 141:7S-47S Diogenes RA, et al. [facility] 2017, 70: 252-289 Performed By: #### CBCDIF, PT #### [facility] [address] [address] CASE MANAGEM Observed: 12/02/2017 Status: COMPLETED Source: [place] 10:20 AM [facility] REPOSITORY HNO ID: [id number] Author: Wagner Paredes (Sw) Service: Social Work Author Type: Painting Department Supervisor Type: Care Mgt Progress Note Filed: 12/02/2017 [...] ARRANGEMENTS: Ambulance: Transport Agency and Phone: Sandra Rios [phone] . Discussion of financial coverage occurred with Patient. ADDITIONAL CONTACT RESOURCES: n/a Per-cert was obtained by facility and team agreeable with discharge pt today to facility. Pt to be transported by [facility]. Pt is agreeable with discharge plan. SIGNATURE: NADIA Tian LSW PATIENT NAME: Paloma Cannon DATE: December 02, 2017 TIME: 10:20 AM PAGER/CONTACT #: [phone] CBC Collected: 12/02/2017 Status: F Source: [place] 5:27 AM [facility] REPOSITORY TYPE CODE TESTS RESULT OUT OF [...] PT, PTT, RFP #### [facility] [place], [place] [address] PROTIME Collected: 12/02/2017 Status: F Source: [place] 5:27 AM [facility] [place] REPOSITORY TYPE CODE TESTS RESULT OUT OF RANGE REFERENCE UNITS LAB PSEC 9.7-13.0 sec High PT Sec 30.3 LAB INR 0.9-1.3 High PT INR 3.1 Result Comment: Vitamin K Antagonist (VKA) Therapeutic Range: INR 2 to 3 (Target INR of 2.5) Note: For patients treated with VKA drugs, such as warfarin, the [place] [employer] 2012 Guideline recommends [...] Chest 2012, 141:7S-47S Diogenes RESENDIZ et al. [facility] 2017, 70: 252-289 Performed By: #### CBC, PT, PTT, RFP #### [facility] [address] [place], [place] [address] APTT Collected: 12/02/2017 Status: F Source: [place] 5:27 AM [facility] REPOSITORY TYPE CODE TESTS RESULT OUT OF [...] laboratory APTT reagent in use throughout the [facility]. Performed By: #### CBC, PT, PTT, RFP #### [facility] [address] [place], [place] [address] RENAL FUNCTION PANEL Collected: 12/02/2017 Status: F Source: [place] 5:27 [facility] REPOSITORY TYPE CODE TESTS RESULT OUT OF REFERENCE UNITS RANGE LAB ALB 3.9-4.9 g/dL Low Albumin 3.5 LAB CA 8.5-10.2 mg/dL Low Calcium, Total 8.4 LAB PHOS 2.7-4.8 mg/dL Phosphorus 3.4 LAB GLU 74-99 mg/dL Glucose 80 Result Comment: The [place] Diabetes Association (ADA) provides guidance for cutoff [...] Standards of Medical Care in Diabetes 2016, [place]. Diabetes Care. 2016.39(Suppl 1). LAB [...] PT, PTT, RFP #### [facility] [place] [id number] PROGRESS Observed: 12/01/2017 Status: COMPLETED Source: [place] 1:33 PM [facility] REPOSITORY O ID: [id number] Author: Olga Reyez Service: General Internal Medicine Author Type: Resident Type: Progress Notes Filed: 12/01/2017 1:57 PM Note Text: Attestation signed by Zhou Lang at 12/01/2017 5:14 PM [facility] STAFF PHYSICIAN NOTE OF PERSONAL INVOLVEMENT IN [...] that will be granted over the holiday weekend. As such, I suspect Ms. Cannon will [...] if helpful. SIGNATURE: Zhou Lang MD PAGER: [phone] DATE of SERVICE: 12/01/2017 TIME of SERVICE: 5:05 PM RAF A PROGRESS NOTE For questions regarding this patient today please page [phone] After 5 pm on weekdays and 3pm on weekends and holidays please page transcription manager pager [phone] SERVICE DATE: 12/01/2017 SERVICE TIME: 1:33 PM [...] (LEVSIN SL) 0.25 mg SUBLINGUAL TID PRN uilwykexbuZHRCU-ijgjhg-rbjtvjeoa 10 mL oral liquid (BMX 1:1:1) 10 [...] with VKA drugs, such as warfarin, the [place]icians 2012 Guideline recommends [...] Chest 2012, 141:7S-47S Diogenes RA, et al. [facility] 2017, 70: 252-289 ASSESSMENT AND PLAN: Active Hospital Problems Diagnosis - Retroperitoneal hematoma Retroperitoneal bleed: s/p 7 units PRBCs s/p IR emobolization of left L3 artery at [place] on 10/23 IR embolization of left L2 [...] 11/03, 11/13 (heme following); patient is on [id number] (Mondays), next scheduled for 11/27 11/22: started [...] painin morning, access site for embolization at [place], no erythema or induration appreciated on exam, exquisitely TTP Groin study showed no signs of PSA, known AV fistula visualized with retrograde flow, vascular med aware- no further recs 10/28: pain less severe, no physical exam findings Repeat Leg DVT shows no pseudoaneurysm Likely due to nerve compression/RP hematoma causing compressive symtpoms S/p R groin drain placed at [place] on 10/24 s/p L groin drain placed at [facility] during embolization on 10/26 Plan: - repeat [...] December 01, 2017 TIME: 1:33 PM PAGER: [phone] CASE MANAGEM Observed: 12/01/2017 Status: COMPLETED Source: [place] 1:13 PM [facility] REPOSITORY HNO ID: [id number] Author: Cherrie Neal) Fadia Service: Care Management Author Type: Resource Center Farm Management Agent Type: Care Mgt Progress Note Filed: 12/01/2017 1:14 PM Note Text: CARE MANAGEMENT PROGRESS NOTE SERVICE DATE: 12/01/2017 SERVICE TIME: 12:04 LOS: 37 days IM letter given to patient on 12/01/17. SIGNATURE: Asst Xiomara PATIENT NAME: Paloma Cannon DATE: December 01, 2017 TIME: 1:13 PM PAGER/CONTACT #: [phone] THERAPY NT Observed: 12/01/2017 Status: COMPLETED Source: [place] 11:06 AM [facility] REPOSITORY HNO ID: [id number] Author: Indra Naqvi [facility] Service: Physical Therapy Author Type: Banquet Steward Type: Therapy (PT/OT/Speech/Resp) Filed: 12/01/2017 11:14 AM Note Text: Attestation signed by Brenda Meraz at 12/01/2017 11:49 AM I reviewed and agree with the assessment as documented above. SIGNATURE: Brenda Meraz PT DATE: December 01, 2017 TIME: 11:49 AM Physical Therapy Treatment SERVICE DATE: 12/01/2017 SERVICE TIME: 1014 to 1100 ROOM: [place] [address] Recommended Discharge Disposition: Acute Rehab Justification For [...] Diagnosis: Reduced mobility-other Interventions Provided: Gait Training (01079);Therapeutic Exercise (96923) Therapeutic Exercise (28418) Treatment Minutes: 15 1 unit Skilled Intervention(s): [...] breath (91% on 6 liters) Gait Training (87891) Treatment Minutes: 23 2 units Skilled Intervention(s): [...] 01, 2017 TIME: 11:06 AM PAGER/CONTACT #: [phone] CBC Collected: 12/01/2017 Status: F Source: [place] 5:14 AM [facility] REPOSITORY TYPE CODE TESTS RESULT OUT OF [...] CBC, PT, PTT #### [facility] [address] [place], [place] [address] PROTIME Collected: 12/01/2017 Status: F Source: [place] 5:14 AM [facility] REPOSITORY TYPE CODE TESTS RESULT OUT OF RANGE REFERENCE UNITS LAB PSEC 9.7-13.0 sec High PT Sec 23.8 LAB INR 0.9-1.3 High PT INR 2.4 Result Comment: Vitamin K Antagonist (VKA) Therapeutic Range: INR 2 to 3 (Target INR of 2.5) Note: For patients treated with VKA drugs, such as warfarin, the [employer] of [employer]icians 2012 Guideline recommends [...] Chest 2012, 141:7S-47S Diogenes RA, et al. [facility] 2017, 70: 252-289 Performed By: #### CBC, PT, PTT #### [facility] [address] [place], [place] [address] APTT Collected: 12/01/2017 Status: F Source: [place] 5:14 AM [facility] REPOSITORY TYPE CODE TESTS RESULT OUT OF [...] laboratory APTT reagent in use throughout the [facility]. Performed By: #### CBC, PT, PTT #### [facility] [place], [place] [address] CNDS Observed: 11/30/2017 Status: COMPLETED Source: [place] 5:53 PM [facility] REPOSITORY HNO ID: [id number] Author: Olga Reyez Service: General Internal Medicine Author Type: Resident Type: Discharge Summaries Filed: 12/02/2017 11:56 AM Note Text: Attestation signed by Zhou Lang at 12/02/2017 4:29 PM [facility] ST[facility]FF PHYSIC[facility] NOTE OF PERSONAL INVOLVEMENT IN [...] Please see Dr. Reyez's summary of her zjgvpsroowz-uq-wrnt issues for follow-up, monitoring, and medication changes. I remain available for questions/discussion, if helpful. CARE COORDINATION: Discharge Management: I personally spent greater than 30 minutes involved in the discharge management of this patient SIGNATURE: Zhou Lang MD PAGER: [phone] DATE of SERVICE: 12/02/2017 TIME of SERVICE: [...] 10/23/17-10/25/17: Shortly after discharge, she presented to [facility] ED on 10/23 due to new left-sided abdominal pain that was severe and stabbing in nature, and radiated to her left upper and lower extremities. A CT abdomen/pelvis revealed an extensive left retroperitoneal hemorrhage with mass effect to the left kidney, and less extensive hemorrhage along the surface of the spleen and along the mesentery. She was transferred to [facility] for admission to the ICU. In [facility] ICU, urgent L RP angiogram with [...] and underwent dialysis. She was transferred to [facility] MICU on 10/25/17 for further management. 10/25/17-11/03/17 ([facility] MICU): On admission, her Hb was 6.6, [...] U platelets during her MICU stay at [facility], in addition to the 7 units received at [place]. Hematology was also consulted who recommended to [...] 12K subsequently. She was transitioned from dilaudid MANAGER BILLING to IV dilaudid and PO oxycodone prior to transfer to the regular nursing floor under the care of General Internal Medicine on 11/03. 11/03/17-12/02/17: Hemolysis labs were significant for elevated LDH, elevated reticulocyte count, undetectable haptoglobin, direct darby negative, and [id number] activity levels of 56% (not suspicious for [...] IR emobolization of left L3 artery at [place] on 10/23 IR embolization of left L2 [...] 11/03, 11/13 (heme following); patient is on [id number] (Mondays), next scheduled for 11/27 11/22: started [...] painin morning, access site for embolization at [place], no erythema or induration appreciated on exam, exquisitely TTP Groin study showed no signs of PSA, known AV fistula visualized with retrograde flow, vascular med aware- no further recs 10/28: pain less severe, no physical exam findings Repeat Leg DVT shows no pseudoaneurysm Likely due to nerve compression/RP hematoma causing compressive symtpoms S/p R groin drain placed at [place] on 10/24 s/p L groin drain placed at [facility] during embolization on 10/26 Plan: - repeat [...] Instead, start taking pentamidine 300 mg inhalation [id number]. Next one due 12/11/17 - Stop hydromorphone. Take Oxycodone IR PO 5mg q3h PRN - Coumadin 5 mg qday for anticoagulation. For the two days following PLEX, she is instructed to take 7.5 mg daily. -If Rehab has any questions in regards to coumadin dosing please instruct to call Magdalena Lewis CNP (Vascular Medicine) [phone] -At discharge from rehab please instruct patient to contact Magdalena Lewis CNP [phone] (Vascular Medicine) for coumadin instructions - Dose [...] needed (Left lower back pain + spasm). gjeafrpysfKTDXV-izbzzq-kwqthngte (BMX 1:1:1) 10 mL Take 10 mL [...] Comments: Reason for Stopping: HYDROmorphone 0.5 mg/mL MANAGER BILLING CLINICIAN DOSE 0.4 mg Comments: Reason for Stopping: sulfamethoxazole-trimethoprim (BACTRIM DS,SEPTRA DS) 1 tablet Comments: Reason for Stopping: Future Appointments: Future Appointments Date Time Provider Department Center 12/11/2017 8:40 AM [id number] [facility] 12/11/2017 8:40 AM [id number] [facility] 12/11/2017 10:45 AM [id number] PARMAR ([facility]) PERN VASM J/S Bld 12/11/2017 10:45 AM [id number] PARMAR ([facility]) PERVMN VASM J/S Bld 12/11/2017 12:00 PM [id number] [facility] [place] 12/11/2017 12:20 PM [id number] CHEST MAIN A21 RADMN RADIO A BLDG 12/11/2017 1:25 PM 5091-GUILLAUME ALICEA PULLauren A/E/R/G 12/11/2017 1:25 PM 5091-GUILLAUME ALICEAM A/E/R/G 12/25/2017 12:00 PM [id number] [facility] [place] 01/04/2018 8:10 AM 2517-ERROL CAMERON ([place]) NEPHMN NEPH Q BLDG 01/04/2018 8:10 AM 2517-ERROL CAMERON ([place]) NEPHMN NEPH Q BLDG 01/08/2018 12:00 PM [id number]-MBQLNONLC [facility] [facility] [place] 01/22/2018 10:15 AM [id number] PARMAR ([employer]) PERVMN VASM J/S Bld 01/22/2018 10:15 AM [id number] PARMAR ([employer]) PERVMN VASM J/S Bld 01/22/2018 12:00 PM [id number]-UFVAGHFKW [facility] [facility] [place] 02/05/2018 12:00 PM [id number]-KRJSJVGGC [facility] [place] SIGNATURE: Olga Reyez MD PATIENT NAME: Paloma Cannon DATE: November 30, 2017 TIME: 5:53 PM PAGER: [phone] THERAPY NT Observed: 11/30/2017 Status: COMPLETED Source: [place] 2:44 PM [facility] REPOSITORY O ID: [id number] Author: Tamiko (Pt) Adelaida Service: Physical Therapy Author Type: Physical Therapist Type: Therapy (PT/OT/Speech/Resp) Filed: 11/30/2017 2:50 PM Note Text: Physical Therapy Wound/Lymph Treatment SERVICE DATE: 11/30/2017 SERVICE TIME: 1412 to 1438 ROOM: [place] [address] Recommended Discharge Disposition Comments: will require further [...] Patient TREATMENT INTERVENTIONS: Interventions Provided: Manual Therapy (94359) Manual Therapy (35567) Treatment Minutes: 26 2 units Skilled Intervention: [...] 30, 2017 TIME: 2:44 PM PAGER/CONTACT #: [phone] CASE MANAGEM Observed: 11/30/2017 Status: COMPLETED Source: [place] 12:43 PM [facility] REPOSITORY HNO ID: [id number] Author: Jacinta Aguilar (Rn) JEFF Olmedo Service: Care Management Author Type: Registered Nurse Type: Care Mgt Progress Note Filed: 11/30/2017 12:43 PM Note Text: CARE MANAGEMENT PROGRESS NOTE SERVICE DATE: 11/30/2017 SERVICE TIME: 12:43 PM LOS: 36 days Needs Prior to Discharge: Precertification : Dc tomorrow to [facility] pending precert. (started 11/28) At direction of TEENA Kapoor (p) [phone] DM t/p set for 1p. . Per , at [place] pt will need apheresis q 2 weeks indefinitely and close daily lab montoring of blood status for possible need for transfusion . Current on , has home O2 2L 02 via [employer]. Yang CM is Elsa Matos (p) Per bolivar Hunter phone # is [phone]. CM to continue to follow SIGNATURE: Jacinta Olmedo RN PATIENT NAME: Paloma Cannon DATE: November 30, 2017 TIME: 12:43 PM PAGER/CONTACT #: [phone] [facility] Observed: 11/30/2017 Status: COMPLETED Source: [place] 12:34 PM [facility] MA[facility] CAMP[facility] REPOSITORY HNO ID: [id number] Author: Negrito Kelley (Therapist) Miranda Service: Art Therapy Author Type: Therapist Type: Allied Health Filed: 12/01/2017 3:55 PM Note Text: ART THERAPY NOTE SERVICE DATE: 11/30/2017 SERVICE TIME: 11:30 Referred By: PT Reason for Referral: anxiety Session Type: Initial Time Spent (minutes): 60 Goals: Coping Through Diversion;Decision Making;Diversion From Pain;Feelings Translated Into Images;Reduce Anxiety Interventions: Art Based Therapy Response Before After Mood 2/4 1/4 Anxiety 2/10 0/10 Pain 9/10 8/10 Scale: [...] 30, 2017 TIME: 12:34 PM PAGER/CONTACT #: [phone] THERAPY NT Observed: 11/30/2017 Status: COMPLETED Source: [place] 9:45 AM [facility] REPOSITORY HNO ID: [id number] Author: Zahra Burks (Cota-L) Service: Occupational Therapy Author Type: Weeder Type: Therapy (PT/OT/Speech/Resp) Filed: 11/30/2017 9:57 AM Note Text: Occupational Therapy Treatment SERVICE DATE: 11/30/2017 SERVICE TIME: 826 to 939 ROOM: [place] [address] Recommended Discharge Disposition: Acute Rehab Justification For [...] daily living (ADL) Interventions Provided: Therapeutic Activity (75333) Therapeutic Activity (88022) Treatment Minutes: 73 5 units Skilled Intervention(s): [...] relaxation. Instructed pt on sit-stand transfer from [facility], 2xs, with CGA- min A and use [...] G CODE: OT 6 Clicks Score: 19 (05826) Self Care Current Status (G8987): CK (11/30/17826) [...] complete details for this therapy evaluation/treatment. SIGNATURE: MAICO Perez PATIENT NAME: Paloma Cannon DATE: November 30, 2017 TIME: 9:47 AM PAGER: [phone] PROTIME Collected: 11/30/2017 Status: F Source: [place] 8:34 AM [facility] REPOSITORY TYPE CODE TESTS RESULT OUT OF RANGE REFERENCE UNITS LAB PSEC 9.7-13.0 sec High PT Sec 25.8 LAB INR 0.9-1.3 High PT INR 2.6 Result Comment: Vitamin K Antagonist (VKA) Therapeutic Range: INR 2 to 3 (Target INR of 2.5) Note: For patients treated with VKA drugs, such as warfarin, the [place] [employer]icians 2012 Guideline recommends [...] Chest 2012, 141:7S-47S Diogenes RA, et al. [facility] 2017, 70: 252-289 Performed By: #### PT, PTTAC #### [facility] [address] [place], [place] [address] PTT,ANTICOAG THERAPY Collected: 11/30/2017 Status: F Source: [place] 8:34 AM [facility] REPOSITORY TYPE CODE TESTS RESULT OUT OF [...] laboratory APTT reagent in use throughout the [facility]. Performed By: #### PT, PTTAC #### [facility] [address] [place], [place] [address] NURSING PROG Observed: 11/30/2017 Status: COMPLETED Source: [place] 7:55 AM [facility] REPOSITORY HNO ID: [id number] Author: Krysten SanchezRn) JEFF Morgan Service: Nursing Author Type: Registered Nurse Type: Nursing Progress Note Filed: 11/30/2017 7:59 AM Note Text: Nursing Progress Note Patient Name: Paloma Cannon Patient Location: [facility] 015/H080-16 Daily Note: Pt AANDox3. Pt c/o left side pain. Medicated per SEP. Bed at the lowest position. Fall/safety precaution in place. Hourly round done by staff. Call light within reach. Will continue to monitor. This note was completed by: Krysten Morgan RN CONSULT PROG Observed: 11/30/2017 Status: COMPLETED Source: [place] 7:30 AM [facility] REPOSITORY HNO ID: [id number] Author: Harika Almaguer) CY Higuera Service: Vascular Medicine Author Type: Physician Farm Management Agent Type: Consult Progress Note Filed: 11/30/2017 1:02 [...] (LEVSIN SL) 0.25 mg SUBLINGUAL TID PRN ydcbfncmwoLEKIE-qmfoha-vrwtqihvf 10 mL oral liquid (BMX 1:1:1) 10 [...] dosing please instruct to call Magdalena Lewis [employer] [phone] -At discharge from rehab please instruct patient to contact Magdalena Lewis [employer] [phone] for coumadin instructions -VM will sign off, please call if new questions/concerns arise at pager [phone] SIGNATURE: CY Argueta PATIENT NAME: Paloma Cannon DATE: November 30, 2017 TIME: 7:33 AM PAGER/CONTACT #: [phone] . PROGRESS Observed: 11/30/2017 Status: COMPLETED Source: [place] 5:41 AM [facility] REPOSITORY O ID: [id number] Author: Olga Reyez Service: General Internal Medicine Author Type: Resident Type: Progress Notes Filed: 11/30/2017 3:37 PM Note Text: Attestation signed by Zhou Lang at 11/30/2017 6:47 PM [facility] ST[facility]FF PHYSICIAN NOTE OF PERSONAL INVOLVEMENT IN [...] if helpful. SIGNATURE: Zhou Lang MD PAGER: [phone] DATE of SERVICE: 11/30/2017 TIME of SERVICE: 6:38 PM RAF Terry PROGRESS NOTE For questions regarding this patient today please page [phone] After 5 pm on weekdays and 3pm on weekends and holidays please page transcription manager pager [phone] SERVICE DATE: 11/30/2017 SERVICE TIME: 5:41 AM [...] leukocytes. Will wait for speciation. - Per VM, she will need warfarin 7.5 mg for [...] (LEVSIN SL) 0.25 mg SUBLINGUAL TID PRN aycbviaahdTDQCA-acxywl-mawcaipfg 10 mL oral liquid (BMX 1:1:1) 10 [...] IR emobolization of left L3 artery at [place] on 10/23 IR embolization of left L2 [...] 11/03, 11/13 (heme following); patient is on h1bnjeu (Mondays), next scheduled for 11/27 11/22: started [...] painin morning, access site for embolization at [place], no erythema or induration appreciated on exam, exquisitely TTP Groin study showed no signs of PSA, known AV fistula visualized with retrograde flow, vascular med aware- no further recs 10/28: pain less severe, no physical exam findings Repeat Leg DVT shows no pseudoaneurysm Likely due to nerve compression/RP hematoma causing compressive symtpoms S/p R groin drain placed at [place] on 10/24 s/p L groin drain placed at [facility] during embolization on 10/26 Plan: - repeat [...] November 30, 2017 TIME: 5:41 AM PAGER: [phone] CBC Collected: 11/30/2017 Status: F Source: [place] 4:35 AM CLINIC [facility]IN [facility]AMPUS REPOSITORY TYPE CODE [...] PT, PTT, RFP #### [facility] [address] [place], [place] [address] PROTIME Collected: 11/30/2017 Status: F Source: [place] 4:35 AM [facility] REPOSITORY TYPE CODE TESTS RESULT OUT OF RANGE REFERENCE UNITS LAB PSEC 9.7-13.0 sec High PT Sec 30.6 LAB INR 0.9-1.3 High PT INR 3.2 Result Comment: Vitamin K Antagonist (VKA) Therapeutic Range: INR 2 to 3 (Target INR of 2.5) Note: For patients treated with VKA drugs, such as warfarin, the [employer] 2012 Guideline recommends [...] Chest 2012, 141:7S-47S Diogenes RA et al. [facility] 2017, 70: 252-289 Performed By: #### CBC, PT, PTT, RFP #### [facility] [address], [place] [address] APTT Collected: 11/30/2017 Status: F Source: [place] 4:35 AM [facility] REPOSITORY TYPE CODE TESTS RESULT OUT OF [...] laboratory APTT reagent in use throughout the [facility]. Performed By: #### CBC, PT, PTT, RFP #### [facility] [address] [place], [place] [address] RENAL FUNCTION PANEL Collected: 11/30/2017 Status: F Source: [place] 4:35 AM [facility] MAIN CAMPUS REPOSITORY TYPE CODE TESTS RESULT OUT OF REFERENCE UNITS RANGE LAB ALB 3.9-4.9 g/dL Low Albumin 3.3 LAB CA 8.5-10.2 mg/dL Low Calcium, Total 8.4 LAB PHOS 2.7-4.8 mg/dL Phosphorus 3.0 LAB GLU 74-99 mg/dL Glucose 84 Result Comment: The [place] Diabetes Association (ADA) provides guidance for cutoff [...] Standards of Medical Care in Diabetes 2016, [place]. Diabetes Care. 2016.39(Suppl 1). LAB [...] PT, PTT, RFP #### [facility] [address], [place] [address] TYPE AND SCREEN Collected: 11/30/2017 Status: F Source: [place] 4:35 AM [facility] REPOSITORY TYPE CODE TESTS RESULT OUT OF REFERENCE UNITS RANGE LAB %ABR B ABO/RH(D) POSITIVE LAB % Antibody POS Screen Performed By: #### TSCR #### [facility] [address] [place], [place] [address] NURSING PROG Observed: 11/29/2017 Status: COMPLETED Source: [place] 5:06 PM [facility] REPOSITORY HNO ID: [id number] Author: Zoila (Rn) JEFF Cullen Service: Nursing Author Type: Registered Nurse Type: Nursing Progress Note Filed: 11/29/2017 5:12 PM Note Text: Nursing Progress Note Patient Name: Paloma Cannon Patient Location: [place] [address] Daily Note: Pt AANDOx3. VSS. Pt c/o Left sided pain, treated per sep. At times, pt would ask for pain meds. When RN went back into room, pt would be sleeping/snoring. Tolerating regular diet well. Skin care protocol in place. Fall/safety precautions in place. Sputum culture sent. This note was completed by: Zoila Cullen RN Observed: 11/29/2017 Status: F Source: [place] RESPIRATORY CULT/STAIN 3:09 PM [facility] REPOSITORY Sp. Request/Comment: - Specimen received in [...] <=0.5 F Performed By: #### RCULST #### [facility] [address] [place] [id number] NUTRITION Observed: 11/29/2017 Status: COMPLETED Source: [place] 2:45 PM [facility] REPOSITORY HNO ID: [id number] Author: Anahi Bang-T) Sergei Service: Nutrition Therapy Author Type: Machine Feeder Raw Stock Type: Nutrition Filed: 11/29/2017 2:46 PM Note [...] November 29, 2017 TIME: 2:45 PM PAGER: [phone] CONSULT PROG Observed: 11/29/2017 Status: COMPLETED Source: [place] 2:41 PM [facility] [place] REPOSITORY HNO ID: [id number] Author: Paulette Naranjo Service: Vascular Medicine Author [...] (LEVSIN SL) 0.25 mg SUBLINGUAL TID PRN tpnbqhowzgQVWVY-lijtxi-rnyuibjke 10 mL oral liquid (BMX 1:1:1) 10 [...] 2 hrs later to ensure INR remains>2 VM follows warfarin outpatient SIGNATURE: Paulette Naranjo APRN.CNP PATIENT NAME: Paloma Cannon DATE: November 29, 2017 TIME: 11 am PAGER/CONTACT #: [phone] . CASE MANAGEM Observed: 11/29/2017 Status: COMPLETED Source: [place] 1:38 PM [facility] [place] REPOSITORY HNO ID: [id number] Author: Cherrie (Asst) Fadia Service: Care Management Author Type: Resource Center Farm Management Agent Type: Care Mgt Progress Note Filed: 11/29/2017 1:39 PM Note Text: CARE MANAGEMENT PROGRESS NOTE SERVICE DATE: 11/29/2017 SERVICE TIME: 1:02 LOS: 35 days IM letter given to patient on 11/29/17. SIGNATURE: Asst Xiomara PATIENT NAME: Paloma Cannon DATE: November 29, 2017 TIME: 1:38 PM PAGER/CONTACT #: [phone] [facility] Observed: 11/29/2017 Status: COMPLETED Source: [place] 12:57 PM [facility] MAIN [place] REPOSITORY HNO ID: [id number] Author: Negrito Kelley (Therapist) Miranda Service: Art [...] 29, 2017 TIME: 12:57 PM PAGER/CONTACT #: [phone] THERAPY NT Observed: 11/29/2017 Status: COMPLETED Source: [place] 12:32 PM [facility] MAIN [place] REPOSITORY HNO ID: [id number] Author: Tamiko (Pt) Adelaida Service: Physical Therapy Author Type: Physical Therapist Type: Therapy (PT/OT/Speech/Resp) Filed: 11/29/2017 12:37 PM Note Text: Physical Therapy Wound/Lymph Treatment SERVICE DATE: 11/29/2017 SERVICE TIME: 1100 to 1125 ROOM: 80-16 Recommended Discharge Disposition Comments: will require further [...] Patient TREATMENT INTERVENTIONS: Interventions Provided: Manual Therapy (67590) Manual Therapy (55350) Treatment Minutes: 25 2 units Skilled Intervention: [...] 29, 2017 TIME: 12:33 PM PAGER/CONTACT #: [phone] Observed: 11/29/2017 Status: F Source: [place] BLOOD CULTURE 9:11 AM [facility] REPOSITORY Culture Result - No growth 5 days Performed By: #### BLCUL #### [facility] [address] [place], [place] [address] Observed: 11/29/2017 Status: F Source: [place] BLOOD CULTURE 8:57 AM [facility] REPOSITORY Culture Result - No growth 5 days Performed By: #### BLCUL #### [facility] [address] [place], [place] [address] XR CHEST 1V FRONTAL Observed: 11/29/2017 Status: F Source: [facility] 7:55 AM [facility] REPOSITORY * * *Final Report* * * [...] unchanged Cardiomediastinal silhouette: Stable cardiomegaly Other: . Pie Topper: MURTAZA Transcribe Date/Time: Nov 29 2017 8:43A Dictated by : KOFFI PRAJAPATI MD This examination was interpreted and the report reviewed and electronically signed by: KOFFI PRAJAPATI MD on Nov 29 2017 8:44AM EST [id number] Observed: 11/29/2017 Status: COMPLETED Source: [place] 5:58 AM [facility] REPOSITORY HNO ID: [id number] Author: Olga Reyez Service: General Internal Medicine Author Type: Resident Type: Progress Notes Filed: 11/29/2017 11:08 AM Note Text: Attestation signed by Zhou Lang at 11/29/2017 12:46 PM [facility] ST[facility] PHYSICIAN NOTE OF PERSONAL INVOLVEMENT IN [...] if helpful. SIGNATURE: Zhou Lang MD PAGER: [phone] DATE of SERVICE: 11/29/2017 TIME of SERVICE: 12:36 PM [facility] Terry PROGRESS NOTE For questions regarding this patient today please page [phone] After 5 pm on weekdays and 3pm on weekends and holidays please page transcription manager pager [phone] SERVICE DATE: 11/29/2017 SERVICE TIME: 5:58 AM [...] PLAN FOR TODAY - touch base with regarding bivalirudin - torsemide 20 mg BID [...] prior to discharge next apheresis scheduled for 12-11. May affect coumadin levels. - will hold [...] mg ORAL/FEEDING TUBE q 4 H PRN xcmlxqpwmyZXKOI-ltgklp-mcxkglzgr 10 mL oral liquid (BMX 1:1:1) 10 [...] IR emobolization of left L3 artery at [place] on 10/23 IR embolization of left L2 [...] 11/03, 11/13 (heme following); patient is on c1jrxzk (Mondays), next scheduled for 11/27 11/22: started [...] appreciated - History of HIT (heparin-induced thrombocytopenia) ([facility]) Plan: - Avoid heparin products - Anticoagulation management encounter - Weakness of left leg 11/02 Left leg weakness/parasthesia Likely related to lumbar nerve compression from large retroperitoneal hematoma Neurology was following, recommended no further intervention On gabapentin renally dosed. - Left groin pain 10/27: C/o acute painin morning, access site for embolization at [place], no erythema or induration appreciated on exam, exquisitely TTP Groin study showed no signs of PSA, known AV fistula visualized with retrograde flow, vascular med aware- no further recs 10/28: pain less severe, no physical exam findings Repeat Leg DVT shows no pseudoaneurysm Likely due to nerve compression/RP hematoma causing compressive symtpoms S/p R groin drain placed at [place] on 10/24 s/p L groin drain placed at [facility] during embolization on 10/26 Plan: - repeat [...] November 29, 2017 TIME: 5:58 AM PAGER: [phone] CBC Collected: 11/29/2017 Status: F Source: [place] 4:05 AM [facility] REPOSITORY TYPE CODE TESTS RESULT OUT OF [...] CBC, PT, PTT #### [facility] [address], [place] [address] PROTIME Collected: 11/29/2017 Status: F Source: [place] 4:05 AM [facility] REPOSITORY TYPE CODE TESTS RESULT OUT OF RANGE REFERENCE UNITS LAB PSEC 9.7-13.0 sec High PT Sec 21.5 LAB INR 0.9-1.3 High PT INR 2.2 Result Comment: Vitamin K Antagonist (VKA) Therapeutic Range: INR 2 to 3 (Target INR of 2.5) Note: For patients treated with VKA drugs, such as warfarin, the [place] [employer] of [employer]icians 2012 Guideline recommends [...] Chest 2012, 141:7S-47S Diogenes RA, et al. [facility] 2017, 70: 252-289 Performed By: #### CBC, PT, PTT #### [facility] [address] [place], [place] [address] APTT Collected: 11/29/2017 Status: F Source: [place] 4:05 AM [facility] REPOSITORY TYPE CODE TESTS RESULT OUT OF [...] laboratory APTT reagent in use throughout the [facility]. Performed By: #### CBC, PT, PTT #### [facility] [address] [place], [place] [address] CONSULT PROG Observed: 11/28/2017 Status: COMPLETED Source: [place] 7:16 PM [facility] REPOSITORY HNO ID: [id number] Author: Jefferson Willett (Fel) Service: Hematology/Oncology Author [...] mg ORAL/FEEDING TUBE q 4 H PRN gbdhibhnluHWHOW-opaehv-squfgazxp 10 mL oral liquid (BMX 1:1:1) 10 [...] IR guided intervention (initially on 10/23 at [facility] and 10/26 here at [facility]. ? # Antiphospholipid antibody syndrome -recent?home [...] THERAPY NT Observed: 11/28/2017 Status: COMPLETED Source: [place] 3:19 PM [facility] REPOSITORY HNO ID: [id number] Author: Tamiko (Pt) Adelaida Service: Physical Therapy Author Type: Physical Therapist Type: Therapy (PT/OT/Speech/Resp) Filed: 11/28/2017 3:25 PM Note Text: Physical Therapy Wound/Lymph Treatment SERVICE DATE: 11/28/2017 SERVICE TIME: 1443 to 1510 ROOM: [place] [address] Recommended Discharge Disposition Comments: will require further [...] Patient TREATMENT INTERVENTIONS: Interventions Provided: Manual Therapy (07998) Manual Therapy (61340) Treatment Minutes: 25 2 units Skilled Intervention: [...] details for this therapy evaluation/treatment. SIGNATURE: Tamiko Sno PT PATIENT NAME: Paloma Cannon DATE: November 28, 2017 TIME: 3:19 PM PAGER/CONTACT #: [phone] NURSING PROG Observed: 11/28/2017 Status: COMPLETED Source: [place] 3:14 PM [facility] REPOSITORY HNO ID: [id number] Author: Zoila Cullen RN Service: Nursing Author Type: Registered Nurse Type: Nursing Progress Note Filed: 11/28/2017 3:17 PM Note Text: Nursing Progress Note Patient Name: Paloma Cannon [address] Daily Note: Pt AANDOx3. VSS. Pt c/o pain, treated per mar. Pt up with one assist. Fall/safety precautions in place. Skin care protocol in place. 1430: Pt refusing third lactulose, says two is enough and she will have a bowel movement tonight. Pt also weeping from [facility]. Dr. Reyez notified in person. Bival infusing per sep, pt is therapeutic. This note was completed by: Zoila Cullen RN PROGRESS Observed: 11/28/2017 Status: COMPLETED Source: [place] 3:08 PM [facility] REPOSITORY HNO ID: [id number] Author: Olga Reyez Service: General Internal Medicine Author Type: Resident Type: Progress Notes Filed: 11/28/2017 3:21 PM Note Text: Attestation signed by Zhou Lang at 11/28/2017 3:47 PM [facility] PHYSIC[facility] NOTE OF PERSONAL INVOLVEMENT IN [...] if helpful. SIGNATURE: Zhou Lang MD PAGER: [phone] DATE of SERVICE: 11/28/2017 TIME of SERVICE: 3:38 PM RAF A PROGRESS NOTE For questions regarding this patient today please page [phone] After 5 pm on weekdays and 3pm on weekends and holidays please page transcription manager pager [phone] SERVICE DATE: 11/28/2017 SERVICE TIME: 3:09 PM [...] mg ORAL/FEEDING TUBE q 4 H PRN oshxbvusekDYAJT-asrinr-dujmsofla 10 mL oral liquid (BMX 1:1:1) 10 [...] IR emobolization of left L3 artery at [place] on 10/23 IR embolization of left L2 [...] 11/03, 11/13 (heme following); patient is on f2bmqke (Mondays), next scheduled for 11/27 11/22: started [...] painin morning, access site for embolization at [place], no erythema or induration appreciated on exam, exquisitely TTP Groin study showed no signs of PSA, known AV fistula visualized with retrograde flow, vascular med aware- no further recs 10/28: pain less severe, no physical exam findings Repeat Leg DVT shows no pseudoaneurysm Likely due to nerve compression/RP hematoma causing compressive symtpoms S/p R groin drain placed at [place] on 10/24 s/p L groin drain placed at [facility] during embolization on 10/26 Plan: - repeat [...] November 28, 2017 TIME: 3:09 PM PAGER: [phone] [facility] Observed: 11/28/2017 Status: COMPLETED Source: [place] 2:30 PM [facility] REPOSITORY HNO ID: [id number] Author: Kayla Stewart (Therapist) GIAN Levin Service: Music Therapy Author Type: Music [...] follow up as able. SIGNATURE: Kayla Levin [facility] PATIENT NAME: Paloma Cannon DATE: November 29, 2017 TIME: 9:38 AM PAGER/CONTACT #: [phone] XR CHEST 1V FRONTAL Observed: 11/28/2017 Status: F Source: [facility] 12:20 PM [facility] REPOSITORY * * *Final Report* * * [...] enlarged with pulmonary venous congestion. Other: . Pie Topper: PSCB Transcribe Date/Time: Nov 28 2017 12:31P Dictated by : MAHOGANY ECHAVARRIA MD This examination was interpreted and the report reviewed and electronically signed by: MAHOGANY ECHAVARRIA MD on Nov 28 2017 12:32PM EST [id number] THERAPY NT Observed: 11/28/2017 Status: COMPLETED Source: [place] 9:55 AM [facility] REPOSITORY HNO ID: [id number] Author: Akanksha Motta (Otr/L) Mathieu Service: Occupational Therapy Author Type: Occupational Therapist Type: Therapy (PT/OT/Speech/Resp) Filed: 11/28/2017 9:56 AM Note Text: OCCUPATIONAL THERAPY MISSED VISIT SERVICE DATE: 11/28/2017 SERVICE TIME: 949 to 952 ROOM: [place] [address] Attempted Treatment. Patient not seen due to Sleeping. SIGNATURE: JERMAINE Anand/L PATIENT NAME: Paloma Cannon DATE: November 28, 2017 TIME: 9:55 AM PAGER/CONTACT #:[phone] THERAPY NT Observed: 11/28/2017 Status: COMPLETED Source: [place] 9:33 AM [facility] REPOSITORY HNO ID: [id number] Author: Indra Woods Service: Physical Therapy Author Type: Banquet Steward Type: Therapy (PT/OT/Speech/Resp) Filed: 11/28/2017 9:34 AM Note Text: Attestation signed by Brenda Meraz at 11/28/2017 10:44 AM I reviewed and agree with the assessment as documented above. SIGNATURE: Brenda Meraz, PT DATE: November 28, 2017 TIME: 10:44 AM PHYSICAL THERAPY MISSED VISIT SERVICE DATE: 11/28/2017 SERVICE TIME: 932 to 932 ROOM: [place] [address] Attempted Treatment. Patient not seen due to Test/Procedure. SIGNATURE: Indra Woods PTA PATIENT NAME: Paloma Cannon DATE: November 28, 2017 TIME: 9:34 AM PAGER/CONTACT #: [phone] CONSULT PROG Observed: 11/28/2017 Status: COMPLETED Source: [place] 9:32 AM [facility] REPOSITORY HNO ID: [id number] Author: Magdalena (Chain Puller) Chano Molina Service: Vascular Medicine Author Type: [...] mg ORAL/FEEDING TUBE q 4 H PRN btkblxvqxkRGDAO-tuwwsr-hmqrgzczz 10 mL oral liquid (BMX 1:1:1) 10 [...] and repeat aPTT tomorrow morning. Please call [facility] [phone] if not within therapeutic range Bival and Coumadin should overlap for a minimum of 5 days and until INR is therapeutic before Bival can be discontinued. aPTTs, CBC/INR daily in house Duration of treatment: senior care Upon discharge, INR management to be resumed by Vascular Medicine SIGNATURE: Magdalena Lewis APRN.CNP PATIENT NAME: Paloma Cannon DATE: November 28, 2017 TIME: 12:46 PM PAGER/CONTACT #: [phone] . PROTIME Collected: 11/28/2017 Status: F Source: [place] 5:30 AM [facility] [place] REPOSITORY TYPE CODE TESTS RESULT OUT OF RANGE REFERENCE UNITS LAB PSEC 9.7-13.0 sec High PT Sec 19.1 LAB INR 0.9-1.3 High PT INR 1.9 Result Comment: Vitamin K Antagonist (VKA) Therapeutic Range: INR 2 to 3 (Target INR of 2.5) Note: For patients treated with VKA drugs, such as warfarin, the [employer] 2012 Guideline recommends [...] Chest 2012, 141:7S-47S Diogenes RESENDIZ et al. [facility] 2017, 70: 252-289 Performed By: #### PT, PTT, CBC, RFP #### [facility] [address] [place], [place] [address] APTT Collected: 11/28/2017 Status: F Source: [place] 5:30 AM [facility] REPOSITORY TYPE CODE TESTS RESULT OUT OF [...] laboratory APTT reagent in use throughout the [facility]. Performed By: #### PT, PTT, CBC, RFP #### [facility] [address] [place], [place] [address] CBC Collected: 11/28/2017 Status: F Source: [place] 5:30 AM [facility] REPOSITORY TYPE CODE TESTS RESULT OUT OF [...] PTT, CBC, RFP #### [facility] [address] [place], [place] [address] RENAL FUNCTION PANEL Collected: 11/28/2017 Status: F Source: [place] 5:30 AM [facility] REPOSITORY TYPE CODE TESTS RESULT OUT OF REFERENCE UNITS RANGE LAB ALB 3.9-4.9 g/dL Low Albumin 3.4 LAB CA 8.5-10.2 mg/dL Calcium, Total 8.7 LAB PHOS 2.7-4.8 mg/dL Phosphorus 3.9 LAB GLU 74-99 mg/dL Glucose High 108 Result Comment: The [place] Diabetes Association (ADA) provides guidance for cutoff [...] Standards of Medical Care in Diabetes 2016, [place] [employer]. Diabetes Care. 2016.39(Suppl 1). LAB [...] PTT, CBC, RFP #### [facility] [address] [place] [address] CONSULT PROG Observed: 11/27/2017 Status: COMPLETED Source: [place] 4:37 PM [facility] [place] REPOSITORY HNO ID: [id number] Author: Justina Pollard (Pa) Service: Hematology Author Type: Physician Farm Management Agent Type: Consult Progress Note Filed: 11/27/2017 4:40 [...] mg ORAL/FEEDING TUBE q 4 H PRN rdgcbrazfbKONBL-crbham-felhwfplo 10 mL oral liquid (BMX 1:1:1) 10 [...] IR guided intervention (initially on 10/23 at [facility] and 10/26 here at [facility]. ? # Antiphospholipid antibody syndrome -recent?home [...] November 27, 2017 TIME: 4:37 PM PAGER: [phone] CASE MANAGEM Observed: 11/27/2017 Status: COMPLETED Source: [place] 2:23 PM [facility] REPOSITORY HNO ID: [id number] Author: Jacinta Aguilar (Rn) JEFF Olmedo Service: [...] Per TEENA Borrero [place] [facility] (p) [phone] unable to accept. Peyman Barker would request pt to receive aphersis in house prior to dc. Primary team informed and will try to accommodate. Per , at dc pt will need apheresis q 2 weeks indefinitely and close daily lab montoring of blood status for possible need for transfusion . Current on , [facility] Careurce CM is Elsa Matos (p) [phone]- updated on dc plan today. Per bolivar Hunter phone # is [phone]. .CM to continue to follow SIGNATURE: Jacinta Olmedo RN PATIENT NAME: Paloma Cannon DATE: November 27, 2017 TIME: 2:23 PM PAGER/CONTACT #: [phone] PROCEDURE Observed: 11/27/2017 Status: COMPLETED Source: [place] 1:36 PM [facility] [place] REPOSITORY O ID: [id number] Author: Lisseth Claudio MD Service: Apheresis Author [...] RN Treatment Completed by Apheresis Nurse: [facility] ST[facility]FF PHYSICIAN NOTE OF PERSONAL INVOLVEMENT IN [...] MD November 27, 2017 3:50 PM Pager: [phone] CASE MANAGEM Observed: 11/27/2017 Status: COMPLETED Source: [place] 12:42 PM [facility] REPOSITORY HNO ID: [id number] Author: Cherrie Loaiza (Asst) Service: Care Management Author Type: Resource Center Farm Management Agent Type: Care Mgt Progress Note Filed: 11/27/2017 12:43 PM Note Text: CARE MANAGEMENT PROGRESS NOTE SERVICE DATE: 11/27/2017 SERVICE TIME: 12:03 LOS: 33 days IM letter given to patient on 11/27/17. SIGNATURE: Asst Xiomara PATIENT NAME: Paloma Cannon DATE: November 27, 2017 TIME: 12:42 PM PAGER/CONTACT #: [phone] PROGRESS Observed: 11/27/2017 Status: COMPLETED Source: [place] 12:31 PM [facility] REPOSITORY HNO ID: [id number] Author: Olga Reyez Service: General Internal Medicine Author Type: Resident Type: Progress Notes Filed: 11/27/2017 12:40 PM Note Text: Attestation signed by Zhou Lang at 11/27/2017 5:52 PM [facility] ST[facility]FF PHYSICIAN NOTE OF PERSONAL INVOLVEMENT IN [...] if helpful. SIGNATURE: Zhou Lang MD PAGER: [phone] DATE of SERVICE: 11/27/2017 TIME of SERVICE: 5:44 PM RAF A PROGRESS NOTE For questions regarding this patient today please page [phone] After 5 pm on weekdays and 3pm on weekends and holidays please page transcription manager pager [phone] SERVICE DATE: 11/27/2017 SERVICE TIME: 12:32 PM [...] mg ORAL/FEEDING TUBE q 4 H PRN jeacgqygoeVLMIY-lmsjbb-uvoaqmhef 10 mL oral liquid (BMX 1:1:1) 10 [...] IR emobolization of left L3 artery at [place] on 10/23 IR embolization of left L2 [...] 11/03, 11/13 (heme following); patient is on [id number] (Mondays), next scheduled for 11/27 11/22: started [...] appreciated - History of HIT (heparin-induced thrombocytopenia) ([facility]) Plan: - Avoid heparin products - Anticoagulation management encounter - Weakness of left leg 11/02 Left leg weakness/parasthesia Likely related to lumbar nerve compression from large retroperitoneal hematoma Neurology was following, recommended no further intervention On gabapentin renally dosed. - Left groin pain 10/27: C/o acute painin morning, access site for embolization at [place], no erythema or induration appreciated on exam, exquisitely TTP Groin study showed no signs of PSA, known AV fistula visualized with retrograde flow, vascular med aware- no further recs 10/28: pain less severe, no physical exam findings Repeat Leg DVT shows no pseudoaneurysm Likely due to nerve compression/RP hematoma causing compressive symtpoms S/p R groin drain placed at [place] on 10/24 s/p L groin drain placed at [facility] during embolization on 10/26 Plan: - repeat [...] November 27, 2017 TIME: 12:32 PM PAGER: [phone] THERAPY NT Observed: 11/27/2017 Status: COMPLETED Source: [place] 10:41 AM [facility] REPOSITORY HNO ID: [id number] Author: Tamiko (PtDevonte Son Service: Physical Therapy Author Type: Physical Therapist Type: Therapy (PT/OT/Speech/Resp) Filed: 11/27/2017 10:46 AM Note Text: Physical Therapy Wound/Lymph Treatment SERVICE DATE: 11/27/2017 SERVICE TIME: 0949 to 1015 ROOM: [place] [address] Disposition: Acute Rehab Recommended Discharge Disposition Comments: [...] Patient TREATMENT INTERVENTIONS: Interventions Provided: Manual Therapy (03288) Manual Therapy (52589) Treatment Minutes: 25 2 units Skilled Intervention: [...] 27, 2017 TIME: 10:41 AM PAGER/CONTACT #: [phone] CONSULT PROG Observed: 11/27/2017 Status: COMPLETED Source: [place] 10:33 AM [facility] [place] REPOSITORY HNO ID: [id number] Author: Magdalena Molina Service: Vascular Medicine Author Type: Nurse [...] mg ORAL/FEEDING TUBE q 4 H PRN iqlgnmruohHZWDD-hhecwl-vcmdaqkmv 10 mL oral liquid (BMX 1:1:1) 10 [...] not recommend imaging as it would not exchange administrator. Okay from VM standpoint to proceed w/ apheresis if it is needed. INR/aPTT will likely normalize (it has previously), but bival will become therapeutic within one hour after apheresis is completed. Plan discussed with Dr. Rodriguez: Day 5 of coumadin, INR 1.5 (2.0-3.0) Will give another 5mg of coumadin aPTT 57.2 (46-65) therapeutic, continue with 0.1mg/kg/hr and repeat aPTT tomorrow morning. Please call [facility] [phone] if not within therapeutic range Bival and Coumadin should overlap for a minimum of 5 days and until INR is therapeutic before Bival can be discontinued. INR will likely normalize after scheduled apheresis session on Monday aPTTs, CBC/INR daily in house Duration of treatment: senior care Upon discharge, INR management to be resumed by Vascular Medicine SIGNATURE: Magdalena Lewis APRN.CNP PATIENT NAME: Paloma Cannon DATE: November 27, 2017 TIME: 10:33 AM PAGER/CONTACT #: [phone] . THERAPY NT Observed: 11/27/2017 Status: COMPLETED Source: [place] 9:59 AM [facility] REPOSITORY O ID: [id number] Author: Indra Naqvi [facility] Service: Physical Therapy Author Type: Banquet Steward Type: Therapy (PT/OT/Speech/Resp) Filed: 11/27/2017 10:06 AM Note Text: Attestation signed by Brenda Meraz at 11/27/2017 12:53 PM I reviewed and agree with the assessment as documented above. SIGNATURE: Brenda Meraz PT DATE: November 27, 2017 TIME: 12:52 PM Physical Therapy Treatment SERVICE DATE: 11/27/2017 SERVICE TIME: 904 to 950 ROOM: H080- Recommended Discharge Disposition: Acute Rehab [...] Diagnosis: Reduced mobility-other Interventions Provided: Therapeutic Activity (31538);Therapeutic Exercise (68105) Therapeutic Exercise (07813) Treatment Minutes: 15 1 unit Skilled Intervention(s): Patient instructed in and performed supine exercises for 10- 15 rep: AP, heelslides, hip abduction, Seated- AP, LAQ with minimal tactile and verbal cues. Patient required extra rest breaks due to fatigue and pain. Educated patient in reasoning for each exercise. Therapeutic Activity (71546) Treatment Minutes: 25 2 units Skilled Intervention(s): [...] 27, 2017 TIME: 9:59 AM PAGER/CONTACT #: [phone] URINALYSIS WITH Collected: 11/27/2017 Status: F Source: [facility] 9:39 AM [facility] REPOSITORY TYPE CODE TESTS RESULT OUT OF RANGE REFERENCE UNITS LAB UCOL Yellow Color Yellow LAB [facility] Clear Clarity Abnormal Cloudy Alert LAB UGLUC Negative mg/dL Glucose, Urine Negative LAB UBIL Negative Bilirubin, Urine Negative LAB UKET Negative Ketones, Urine Negative LAB US[facility] 1.005-1.030 Specific [place], Ur 1.018 LAB UHGB Negative Abnormal Hemoglobin/Blood, [...] By: #### UAWMIC #### [facility] [address] [place], [place] [address] XR CHEST 1V FRONTAL Observed: 11/27/2017 Status: F Source: [facility] 7:52 AM [facility] REPOSITORY * * *Final Report* * * [...] Cardiomediastinal silhouette: Stable cardiomediastinal silhouette. Other: . Pie Topper: PSCB Transcribe Date/Time: Nov 27 2017 10:03A Dictated by : STELLA COSME MD This examination was interpreted and the report reviewed and electronically signed by: STELLA COSME MD on Nov 27 2017 10:04AM EST [id number] CBC Collected: 11/27/2017 Status: F Source: [place] 5:16 AM [facility] REPOSITORY TYPE CODE TESTS RESULT OUT OF [...] CBC, PT, PTT #### [facility] [address] [place], [place] [address] PROTIME Collected: 11/27/2017 Status: F Source: [place] 5:16 AM [facility] REPOSITORY TYPE CODE TESTS RESULT OUT OF RANGE REFERENCE UNITS LAB PSEC 9.7-13.0 sec High PT Sec 14.9 LAB INR 0.9-1.3 High PT INR 1.5 Result Comment: Vitamin K Antagonist (VKA) Therapeutic Range: INR 2 to 3 (Target INR of 2.5) Note: For patients treated with VKA drugs, such as warfarin, the [place] [employer] 2012 Guideline recommends [...] Chest 2012, 141:7S-47S Diogenes RESENDIZ, et al. [facility] 2017, 70: 252-289 Performed By: #### CBC, PT, PTT #### [facility] [address] [place], [place] [address] APTT Collected: 11/27/2017 Status: F Source: [place] 5:16 AM [facility] REPOSITORY TYPE CODE TESTS RESULT OUT OF [...] laboratory APTT reagent in use throughout the [facility]. Performed By: #### CBC, PT, PTT #### [facility] [address] [place], [place] [address] TYPE AND SCREEN Collected: 11/27/2017 Status: F Source: [place] 5:16 AM [facility] REPOSITORY TYPE CODE TESTS RESULT OUT OF REFERENCE UNITS RANGE LAB %ABR B ABO/RH(D) POSITIVE LAB % Antibody POS Screen Performed By: #### TSCR #### [facility] [address] [place] [address] LACTATE Collected: 11/26/2017 Status: F Source: [place] 10:52 PM [facility] REPOSITORY TYPE CODE TESTS RESULT OUT OF REFERENCE UNITS RANGE LAB LACT 0.5-2.2 mmol/L Lactate 1.6 Performed By: #### LACT #### [place] [address] [place] [address] Observed: 11/26/2017 Status: F Source: [place] BLOOD CULTURE 9:13 PM [facility] REPOSITORY Culture Result - No growth 5 days Performed By: #### BLCUL #### [place] [address] [place] [address] LACTATE Collected: 11/26/2017 Status: F Source: [place] 7:26 PM [facility] REPOSITORY TYPE CODE TESTS RESULT OUT OF REFERENCE UNITS RANGE LAB LACT 0.5-2.2 mmol/L Unable Lactate to assay. Specimen improperly collected/handle d. Result Comment: Specimen collected in wrong container type. TEST REQUIRES A MARCUS TUBE. SPECIMEN WAS RECEIVED IN A GREEN SODIUM HEPARIN TUBE. NOTIFIED JEFF BAZZI OF THE NEED FOR A NEW ORDER AND RECOLLECTION. K [id number] Account Credited Performed By: #### LACT #### [place] [address] [place] [address] XR CHEST 1V FRONTAL Observed: 11/26/2017 Status: F Source: [place] 6:13 PM [facility] REPOSITORY * * *Final Report* * * [...] silhouette: Stable prominent/mildly enlarged cardiomediastinal silhouette. Other: Pie Topper: PSCB Transcribe Date/Time: Nov 26 2017 6:31P Dictated by : CARLA TORRES MD This examination was interpreted and the report reviewed and electronically signed by: CARLA TORRES MD on Nov 26 2017 6:33PM EST [id number] SEPSIS LACTATE Collected: 11/26/2017 Status: F Source: [place] 4:10 PM [facility] REPOSITORY TYPE CODE TESTS RESULT OUT OF REFERENCE UNITS RANGE LAB SLACTT <2.1 mmol/L High Sepsis 2.6 Lactate LAB VBGCOM Blood Gas Urgent Comm, Rajeev value Result Comment: SLACT LAB VCBWHO Notified Whom, Rajeev Called to and read back by Result Comment: AMARILYS GUEVARA LAB VCBDTE [id number] Notify Date, Rajeev LAB VCBTME [id number] Notify Time, Rajeev Performed By: #### SLACT #### [facility] [address] [place] [address] HEMOGLOBIN Collected: 11/26/2017 Status: F Source: [place] 4:04 PM [facility] REPOSITORY TYPE CODE TESTS RESULT OUT OF REFERENCE UNITS RANGE LAB HGB 11.5-15.5 g/dL Low Hemoglobin 11.1 Performed By: #### HGB #### [facility] [address] [place] [address] HEMOGLOBIN Collected: 11/26/2017 Status: F Source: [place] 3:34 PM [facility] REPOSITORY TYPE CODE TESTS RESULT OUT OF REFERENCE UNITS RANGE LAB HGB 11.5-15.5 g/dL Hemoglobin Unable to assay. Specimen improperly collected/handl ed. Result Comment: Specimen collected in wrong container type. TEST REQUIRES A LAVENDER TUBE. SPECIMEN WAS RECEIVED IN A DARK GREEN TUBE. NOTIFIED JEFF POLO OF THE ISSUE AND A NEED FOR A RECOLLECTION AND A NEW ORDER. K [id number] Account Credited Performed By: #### HGB #### [facility] [address] [place], [place] [address] NURSING PROG Observed: 11/26/2017 Status: COMPLETED Source: [place] 10:59 AM [facility] REPOSITORY HNO ID: [id number] Author: Edel (Rn) Abel RN Service: Nursing [...] WO IVCON Observed: 11/26/2017 Status: F Source: [place] 10:56 AM [facility] REPOSITORY * * *Final Report* * * DATE OF EXAM: Nov 26 2017 10:56AM [facility] 0531 - CT ABD/PEL WO IVCON / PROCEDURE REASON: Mass or lump, abdomen pelvis * * * * Physician Interpretation * * * * EXAMINATION: CT ABDOMEN AND PELVIS WITHOUT IV CONTRAST CLINICAL HISTORY: History of retroperitoneal bleed, new LEFT 10/10 abdominal pain TECHNIQUE: Non-IV contrast imaging of [...] effusion IMPRESSION: STABLE LARGE LEFT RETROPERITONEAL HEMATOMA Pie Topper: [facility] Transcribe Date/Time: Nov 26 2017 1:00P Dictated by : URSZULA WHARTON MD This examination was interpreted and the report reviewed and electronically signed by: URSZULA WHARTON MD on Nov 26 2017 1:06PM EST [id number] SEPSIS LACTATE Collected: 11/26/2017 Status: F Source: [place] 10:50 AM [facility] REPOSITORY TYPE CODE TESTS RESULT OUT OF REFERENCE UNITS RANGE LAB SLACTT <2.1 mmol/L High Sepsis 2.3 Lactate LAB VBGCOM Blood Gas Urgent Comm, Rajeev value Result Comment: SEPSIS LACT LAB VCBWHO Notified Whom, Rajeev Called to and read back by Result Comment: [facility] VCBDTE [id number] Notify Date, Rajeev LAB VCBTME Notify Time, Rajeev Performed By: #### SLACT #### [facility] [address] [place] [address] HEMOGLOBIN Collected: 11/26/2017 Status: F Source: [place] 10:09 AM [facility] REPOSITORY TYPE CODE TESTS RESULT OUT OF REFERENCE UNITS RANGE LAB HGB 11.5-15.5 g/dL Low Hemoglobin 11.4 Performed By: #### HGB #### [facility] [address] [place], [place] [address] CONSULT PROG Observed: 11/26/2017 Status: COMPLETED Source: [place] 7:00 AM [facility] REPOSITORY HNO ID: [id number] Author: Afia Roman Service: Vascular Medicine Author [...] mg ORAL/FEEDING TUBE q 4 H PRN lkyszenfewPSPVZ-gjtqwz-kgfeemsej 10 mL oral liquid (BMX 1:1:1) 10 [...] and repeat aPTT tomorrow morning. Please call [facility] [phone] if not within therapeutic range Bival and Coumadin should overlap for a minimum of 5 days and until INR is therapeutic before Bival can be discontinued. aPTTs, CBC/INR daily in house Duration of treatment: senior care Upon discharge, INR management to be resumed by Vascular Medicine ? Patient to be seen and discussed w/ Dr. Roman Staff Saran Pan Fellow SIGNATURE: Morteza Pan MD PATIENT NAME: Paloma Cannno DATE: November 26, 2017 TIME: 7:00 AM PAGER/CONTACT #: [phone] . [facility] STAFF PHYSICIAN NOTE OF PERSONAL INVOLVEMENT IN [...] as appropriate. I have personally performed a kpya-uh-sleb assessment of the patient and I have discussed the case and management of the patient's care. STAFF PHYSICIAN: Afia Roman MD DATE OF SERVICE: November 26, 2017 TIME OF SERVICE: 11:38 AM PROGRESS Observed: 11/26/2017 Status: COMPLETED Source: [place] 5:52 AM [facility] REPOSITORY [facility] ID: [id number] Author: Thomas Esteban Service: General Internal Medicine Author Type: Physician Type: Progress Notes Filed: 11/26/2017 5:37 PM Note Text: RAF Terry PROGRESS NOTE After 5 pm on weekdays and 3pm on weekends and holidays please page transcription manager pager [phone] SERVICE DATE: 11/26/2017 SERVICE TIME: 6:48 PM [...] mg ORAL/FEEDING TUBE q 4 H PRN asccseoutrBLKAO-ryyblp-wawcwheqg 10 mL oral liquid (BMX 1:1:1) 10 [...] IR emobolization of left L3 artery at [place] on 10/23 IR embolization of left L2 [...] 11/03, 11/13 (heme following); patient is on [id number] (Mondays), next scheduled for 11/27 11/22: started [...] painin morning, access site for embolization at [place], no erythema or induration appreciated on exam, exquisitely TTP Groin study showed no signs of PSA, known AV fistula visualized with retrograde flow, vascular med aware- no further recs 10/28: pain less severe, no physical exam findings Repeat Leg DVT shows no pseudoaneurysm Likely due to nerve compression/RP hematoma causing compressive symtpoms S/p R groin drain placed at [place] on 10/24 s/p L groin drain placed at [facility] during embolization on 10/26 Plan: - repeat [...] November 26, 2017 TIME: 6:48 AM PAGER: [phone] [facility] ST[facility]FF PHYSICIAN NOTE OF PERSONAL INVOLVEMENT IN [...] CARE COORDINATION: SIGNATURE: Thomas Esteban MD PAGER: [phone] DATE of SERVICE: 11/26 TIME of SERVICE: [...] 5:30PM CBC Collected: 11/26/2017 Status: F Source: [place] 5:14 AM [facility] REPOSITORY TYPE CODE TESTS RESULT OUT OF [...] PT, PTT, RFP #### [facility] [place], [place] [address] PROTIME Collected: 11/26/2017 Status: F Source: [place] 5:14 AM [facility] REPOSITORY TYPE CODE TESTS RESULT OUT OF RANGE REFERENCE UNITS LAB PSEC 9.7-13.0 sec High PT Sec 14.3 LAB INR 0.9-1.3 High PT INR 1.4 Result Comment: Vitamin K Antagonist (VKA) Therapeutic Range: INR 2 to 3 (Target INR of 2.5) Note: For patients treated with VKA drugs, such as warfarin, the [employer] 2012 Guideline recommends [...] Chest 2012, 141:7S-47S Diogenes RA, et al. [facility] 2017, 70: 252-289 Performed By: #### CBC, PT, PTT, RFP #### [facility] [address] [place], [place] [address] APTT Collected: 11/26/2017 Status: F Source: [place] 5:14 AM [facility] REPOSITORY TYPE CODE TESTS RESULT OUT OF [...] laboratory APTT reagent in use throughout the [facility]. Performed By: #### CBC, PT, PTT, RFP #### [facility] [address] [place], [place] [address] RENAL FUNCTION PANEL Collected: 11/26/2017 Status: F Source: [place] 5:14 AM [facility] REPOSITORY TYPE CODE TESTS RESULT OUT OF REFERENCE UNITS RANGE LAB ALB 3.9-4.9 g/dL Low Albumin 3.3 LAB CA 8.5-10.2 mg/dL Calcium, Total 8.7 LAB PHOS 2.7-4.8 mg/dL Phosphorus 3.9 LAB GLU 74-99 mg/dL Glucose 75 Result Comment: The [place] Diabetes Association (ADA) provides guidance for cutoff [...] Standards of Medical Care in Diabetes 2016, [place] [employer]. Diabetes Care. 2016.39(Suppl 1). LAB [...] PT, PTT, RFP #### [facility] [address] [place], [place] [address] PROGRESS Observed: 11/25/2017 Status: COMPLETED Source: [place] 9:47 PM [facility] [place] REPOSITORY HNO ID: [id number] Author: Thomas Esteban Service: General Internal Medicine Author Type: Physician Type: Progress Notes Filed: 11/26/2017 9:07 AM Note Text: RAF Terry PROGRESS NOTE For questions regarding this patient today please page [phone] After 5 pm on weekdays and 3pm on weekends and holidays please page transcription manager pager [phone] SERVICE DATE: 11/25/2017 SERVICE TIME: 9:48 PM [...] mg ORAL/FEEDING TUBE q 4 H PRN ujnghdfdkuNFIRB-qkqmdn-eepqbwuve 10 mL oral liquid (BMX 1:1:1) 10 [...] IR emobolization of left L3 artery at [place] on 10/23 IR embolization of left L2 [...] 11/03, 11/13 (heme following); patient is on i0bfwqr (Mondays) schedule outpatient 11/22: starting bivalirudin Plan: [...] contrast, now requiring dialysis First HD at [place] on 10/25 with tunneled dialysis catheter placement [...] this morning, access site for embolization at [place], no erythema or induration appreciated on exam, exquisitely TTP Groin study showed no signs of PSA, known AV fistula visualized with retrograde flow, vascular med aware- no further recs 10/28: pain less severe, no physical exam findings Repeat Leg DVT shows no pseudoaneurysm Likely due to nerve compression/RP hematoma causing compressive symtpoms S/p R groin drain placed at [place] on 10/24 s/p L groin drain placed at [facility] during embolization on 10/26 Plan: - Pain management-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 MANAGER BILLING as of transfer to [facility] - Will continue to wean dilaudid [...] November 25, 2017 TIME: 9:48 PM PAGER: [phone] [facility] STAFF PHYSICIAN NOTE OF PERSONAL INVOLVEMENT IN [...] CARE COORDINATION: SIGNATURE: Thomas Esteban MD PAGER: [phone] DATE of SERVICE: 11/25 TIME of SERVICE: 9am PROGRESS Observed: 11/25/2017 Status: COMPLETED Source: [place] 9:09 PM [facility] REPOSITORY [facility] ID: [id number] Author: Thomas Esteban Service: General Internal Medicine [...] start of levsin Thomas Esteban MD pager [phone] 11/25 9am CONSULT PROG Observed: 11/25/2017 Status: COMPLETED Source: [place] 7:52 AM [facility] [place] REPOSITORY HNO ID: [id number] Author: Afia Roman Service: Vascular Medicine Author [...] mg ORAL/FEEDING TUBE q 4 H PRN kazfluepnaQWINW-jzrfyp-dbvxmnjns 10 mL oral liquid (BMX 1:1:1) 10 [...] and repeat aPTT tomorrow morning. Please call [facility] [phone] if not within therapeutic range Bival and Coumadin should overlap for a minimum of 5 days and until INR is therapeutic before Bival can be discontinued. aPTTs, CBC/INR daily in house Duration of treatment: senior care Upon discharge, INR management to be resumed by Vascular Medicine Patient to be seen and discussed w/ Dr. Roman, Staff Saran Pan Fellow SIGNATURE: Morteza Pan MD PATIENT NAME: Paloma Cannon DATE: November 25, 2017 TIME: 7:53 AM PAGER/CONTACT #: [phone] . [facility] STAFF PHYSICIAN NOTE OF PERSONAL INVOLVEMENT IN CARE I have reviewed the documentation obtained and documented by Dr. Pan and have reviewed and updated the problem list as appropriate. I have personally performed a iesu-sf-jrbl assessment of the patient and I have discussed the case and management of the patient's care. STAFF PHYSICIAN: Afia Roman MD DATE OF SERVICE: November 25, 2017 TIME OF SERVICE: 1:54 PM CBC Collected: 11/25/2017 Status: F Source: [place] 4:29 AM [facility] REPOSITORY TYPE CODE TESTS RESULT OUT OF [...] CBC, PT, PTT #### [facility] [address], [place] [address] PROTIME Collected: 11/25/2017 Status: F Source: [place] 4:29 AM [facility] REPOSITORY TYPE CODE TESTS RESULT OUT OF RANGE REFERENCE UNITS LAB PSEC 9.7-13.0 sec High PT Sec 14.3 LAB INR 0.9-1.3 High PT INR 1.4 Result Comment: Vitamin K Antagonist (VKA) Therapeutic Range: INR 2 to 3 (Target INR of 2.5) Note: For patients treated with VKA drugs, such as warfarin, the [place] [employer] 2012 Guideline recommends [...] Chest 2012, 141:7S-47S Diogenes RA, et al. [facility] 2017, 70: 252-289 Performed By: #### CBC, PT, PTT #### [facility] [address] [place], [place] [address] APTT Collected: 11/25/2017 Status: F Source: [place] 4:29 AM [facility] REPOSITORY TYPE CODE TESTS RESULT OUT OF [...] laboratory APTT reagent in use throughout the [facility]. Performed By: #### CBC, PT, PTT #### [facility] [address] [place], [place] [address] THERAPY NT Observed: 11/24/2017 Status: COMPLETED Source: [place] 3:06 PM [facility] REPOSITORY HNO ID: [id number] Author: Tamiko (Pt) Adelaida Service: Physical Therapy Author Type: Physical Therapist Type: Therapy (PT/OT/Speech/Resp) Filed: 11/24/2017 3:12 PM Note Text: Physical Therapy Wound/Lymph Treatment SERVICE DATE: 11/24/2017 SERVICE TIME: 1433 to 1459 ROOM: [place] [address] Recommended Discharge Disposition Comments: will require further [...] Patient TREATMENT INTERVENTIONS: Interventions Provided: Manual Therapy (05993) Manual Therapy (85640) Treatment Minutes: 26 2 units Skilled Intervention: [...] 24, 2017 TIME: 3:06 PM PAGER/CONTACT #: [phone] THERAPY NT Observed: 11/24/2017 Status: COMPLETED Source: [place] 2:58 PM [facility] REPOSITORY HNO ID: [id number] Author: Yue Uriostegui Service: Occupational Therapy Author Type: Occupational Therapist Type: Therapy (PT/OT/Speech/Resp) Filed: 11/24/2017 2:58 PM Note Text: OCCUPATIONAL THERAPY MISSED VISIT SERVICE DATE: 11/24/2017 SERVICE TIME: 1453 to 1453 ROOM: [place] [address] Attempted Treatment. Patient not seen due to Another service at bedside- working with PT. Will re-attempt as able. SIGNATURE: Yue Uriostegui, OTR/L PATIENT NAME: Paloma Cannon DATE: November 24, 2017 TIME: 2:58 PM PAGER/CONTACT #:[phone] PROGRESS Observed: 11/24/2017 Status: COMPLETED Source: [place] 2:37 PM [facility] REPOSITORY HNO ID: [id number] Author: Ros Wayne Service: General Internal Medicine Author Type: Physician Type: Progress Notes Filed: 11/24/2017 9:05 PM Note Text: RAF Terry PROGRESS NOTE For questions regarding this patient today please page [phone] After 5 pm on weekdays and 3pm on weekends and holidays please page transcription manager pager [phone] SERVICE DATE: 11/24/2017 SERVICE TIME: 2:41 PM [...] CONSTULOSE) 20 g ORAL q 2 H wyapagnrphZWLJL-dsudzy-jncrayfdv 10 mL oral liquid (BMX 1:1:1) 10 [...] with VKA drugs, such as warfarin, the [place] 2012 Guideline recommends [...] Chest 2012, 141:7S-47S Diogenes RA, et al. [facility] 2017, 70: 252-289 ASSESSMENT AND PLAN: Active Hospital Problems Diagnosis - Retroperitoneal hematoma Retroperitoneal bleed: s/p 7 units PRBCs s/p IR emobolization of left L3 artery at [place] on 10/23 IR embolization of left L2 [...] 11/03, 11/13 (heme following); patient is on c7khvic (Mondays) schedule outpatient 11/22: starting bivalirudin Plan: [...] contrast, now requiring dialysis First HD at [place] on 10/25 with tunneled dialysis catheter placement [...] this morning, access site for embolization at [place], no erythema or induration appreciated on exam, exquisitely TTP Groin study showed no signs of PSA, known AV fistula visualized with retrograde flow, vascular med aware- no further recs 10/28: pain less severe, no physical exam findings Repeat Leg DVT shows no pseudoaneurysm Likely due to nerve compression/RP hematoma causing compressive symtpoms S/p R groin drain placed at [place] on 10/24 s/p L groin drain placed at [facility] during embolization on 10/26 Plan: - Pain management-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 MANAGER BILLING as of transfer to [facility] - Will continue to wean dilaudid [...] November 24, 2017 TIME: 2:41 PM PAGER: [phone] RAF Terry ATTENDING NOTE: Chart reviewed, patient [...] 11/25 Ros Wayne MD FACP Attending, pager [phone] PT ED Observed: 11/24/2017 Status: COMPLETED Source: [place] 1:58 PM [facility] REPOSITORY HNO ID: [id number] Author: Estela Lester (Pharmacist) Service: Pharmacy Author [...] depending on PLEX Outpatient follow-up plan: Other: [facility] (Estela Lester, PharmD [id number]) Indication for warfarin: deep vein thrombosis (DVT) [...] N/A Outpatient Follow-up: [facility] (Estela Lester, [place] [id number]) Nimo Swanson, Pharmacist CONSULT PROG Observed: 11/24/2017 Status: COMPLETED Source: [place] 12:56 PM [facility] REPOSITORY O ID: [id number] Author: Jusitna Pollard (Pa) Service: Hematology Author Type: Physician Farm Management Agent Type: Consult Progress Note Filed: 11/24/2017 4:22 [...] (COUMADIN) 5 mg ORAL DAILY - WARFARIN ssmmlqwbooIEOPJ-zagcqu-cdxakbmxf 10 mL oral liquid (BMX 1:1:1) 10 [...] IR guided intervention (initially on 10/23 at [facility] and 10/26 here at [facility]. ? # Antiphospholipid antibody syndrome -recent?home [...] November 24, 2017 TIME: 12:56 PM PAGER: [phone] CT ABD/PEL WO IVCON Observed: 11/24/2017 Status: F Source: [place] 10:20 AM [facility] REPOSITORY * * *Final Report* * * DATE OF EXAM: Nov 24 2017 10:20AM [facility] 0531 - CT ABD/PEL WO IVCON / [...] INFECTION. NO SIGNIFICANT INTERVAL CHANGE OTHERWISE DETAILED. Pie Topper: MURTAZA Transcribe Date/Time: Nov 24 2017 10:32A Dictated by : FANY SILVER MD This examination was interpreted and the report reviewed and electronically signed by: LYDIA FARIA DO on Nov 24 2017 12:44PM EST [id number] THERAPY NT Observed: 11/24/2017 Status: COMPLETED Source: [place] 10:02 AM [facility] REPOSITORY HNO ID: [id number] [facility]: [facility] Service: Physical Therapy Author Type: Banquet Steward Type: Therapy (PT/OT/Speech/Resp) Filed: 11/24/2017 10:02 AM Note Text: Attestation signed by Jocelyn SanchezPt) Jared at 11/24/2017 5:08 PM I reviewed and agree with the documentation corresponding to this therapy visit. SIGNATURE: Jocelyn Coleman PT DATE: November 24, 2017 TIME: 5:08 PM PHYSICAL THERAPY MISSED VISIT SERVICE DATE: 11/24/2017 SERVICE TIME: 1002 to 1002 ROOM: [place] [address] Attempted Treatment. Patient not seen due to Test/Procedure (CT scan). SIGNATURE: Indra Woods PTA PATIENT NAME: Paloma Cannon DATE: November 24, 2017 TIME: 10:02 AM PAGER/CONTACT #: [phone] URINALYSIS WITH Collected: 11/24/2017 Status: F Source: [facility] 9:54 AM CLINIC MA[facility]AMP[facility] REPOSITORY TYPE CODE TESTS RESULT OUT OF RANGE REFERENCE UNITS LAB UCOL Yellow Color Yellow LAB [facility] Clear Clarity Clear LAB UGLUC Negative mg/dL Glucose, Urine Negative LAB UBIL Negative Bilirubin, Urine Negative LAB UKET Negative Ketones, Urine Negative LAB USPG 1.005-1.030 Specific [place], Ur 1.020 LAB UHGB Negative Abnormal Hemoglobin/Blood, [...] By: #### UAWMIC #### [facility] [address] [place], [place] [address] TYPE AND SCREEN Collected: 11/24/2017 Status: F Source: [place] 9:45 AM [facility] REPOSITORY TYPE CODE TESTS RESULT OUT OF REFERENCE UNITS RANGE LAB %ABR B ABO/RH(D) POSITIVE LAB % Antibody POS Screen Performed By: #### TSCR #### [facility] [address] [place], [place] [address] CONSULT PROG Observed: 11/24/2017 Status: COMPLETED Source: [place] 8:34 AM [facility] REPOSITORY HNO ID: [id number] Author: Magdalena (Elliott) Chano Molina Service: Vascular [...] (COUMADIN) 5 mg ORAL DAILY - WARFARIN wpwufllodzXBMND-nbbhrl-eykjgceeq 10 mL oral liquid (BMX 1:1:1) 10 [...] and repeat aPTT tomorrow morning. Please call [facility] [phone] if not within therapeutic range Bival and Coumadin should overlap for a minimum of 5 days and until INR is therapeutic before Bival can be discontinued. aPTTs, CBC/INR daily in house Duration of treatment: senior care Upon discharge, INR management to be resumed by Vascular Medicine SIGNATURE: Magdalena Lewis APRN.CNP PATIENT NAME: Paloma Cannon DATE: November 24, 2017 TIME: 8:35 AM PAGER/CONTACT #: [phone] . CBC Collected: 11/24/2017 Status: F Source: [place] 6:53 AM [facility] REPOSITORY TYPE CODE TESTS RESULT OUT OF [...] PT, PTT, BMP #### [facility] [address] [place], [place] [address] PROTIME Collected: 11/24/2017 Status: F Source: [place] 6:53 AM [facility] REPOSITORY TYPE CODE TESTS RESULT OUT OF RANGE REFERENCE UNITS LAB PSEC 9.7-13.0 sec High PT Sec 16.0 LAB INR 0.9-1.3 High PT INR 1.6 Result Comment: Vitamin K Antagonist (VKA) Therapeutic Range: INR 2 to 3 (Target INR of 2.5) Note: For patients treated with VKA drugs, such as warfarin, the [place] [employer] 2012 Guideline recommends [...] Chest 2012, 141:7S-47S Diogenes RA, et al. [facility] 2017, 70: 252-289 Performed By: #### CBC, PT, PTT, BMP #### [facility] [address] [place], [place] [address] APTT Collected: 11/24/2017 Status: F Source: [place] 6:53 AM [facility] REPOSITORY TYPE CODE TESTS RESULT OUT OF [...] laboratory APTT reagent in use throughout the [facility]. Performed By: #### CBC, PT, PTT, BMP #### [facility] [address] [place], [place] [address] BASIC METABOLIC PANL Collected: 11/24/2017 Status: F Source: [place] 6:53 AM [facility] REPOSITORY TYPE CODE TESTS RESULT OUT OF REFERENCE UNITS RANGE LAB GLU 74-99 mg/dL Glucose 74 Result Comment: The [place] Diabetes Association (ADA) provides guidance for cutoff [...] Standards of Medical Care in Diabetes 2016, [place] [employer]. Diabetes Care. 2016.39(Suppl 1). LAB [...] PT, PTT, BMP #### [facility] [address] [place], [place] [address] CONSULT PROG Observed: 11/23/2017 Status: COMPLETED Source: [place] 9:57 PM [facility] [place] REPOSITORY HNO ID: [id number] Author: Lis Tracy Service: Physical Medicine AND Rehabilitation Author Type: Physician Type: Consult Progress Note Filed: 11/23/2017 10:18 PM Note Text: Physical Medicine and Rehabilitation Consult progress note November 23, 2017 Updates: On bival gtt, first dose of coumadin tonight. Ashley therapies. 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 She was transferred to [facility] for further stabilization. She underwent urgent Left [...] THERAPY NT Observed: 11/23/2017 Status: COMPLETED Source: [place] 3:50 PM [facility] REPOSITORY HNO ID: [id number] Author: Tamiko (Pt) Adelaida Service: Physical Therapy Author Type: Physical Therapist Type: Therapy (PT/OT/Speech/Resp) Filed: 11/23/2017 3:57 PM Note Text: Physical Therapy Wound/Lymph Treatment SERVICE DATE: 11/23/2017 SERVICE TIME: 1340 to 1408 ROOM: [place] [address] Recommended Discharge Disposition Comments: will require further [...] Patient TREATMENT INTERVENTIONS: Interventions Provided: Manual Therapy (81401) Manual Therapy (75696) Treatment Minutes: 28 2 units Skilled Intervention: [...] 23, 2017 TIME: 3:50 PM PAGER/CONTACT #: [phone] PROGRESS Observed: 11/23/2017 Status: COMPLETED Source: [place] 2:26 PM [facility] REPOSITORY HNO ID: [id number] Author: Ros Wayne Service: General Internal Medicine Author Type: Physician Type: Progress Notes Filed: 11/23/2017 9:13 PM Note Text: RAF Terry PROGRESS NOTE For questions regarding this patient today please page [phone] After 5 pm on weekdays and 3pm on weekends and holidays please page transcription manager pager [phone] SERVICE DATE: 11/23/2017 SERVICE TIME: 2:27 PM [...] (COUMADIN) 5 mg ORAL DAILY - WARFARIN qfjtodiksaUIZNI-howjes-ejjxjwijh 10 mL oral liquid (BMX 1:1:1) 10 [...] IR emobolization of left L3 artery at [place] on 10/23 IR embolization of left L2 [...] 11/03, 11/13 (heme following); patient is on h4vbcze (Mondays) schedule outpatient 11/22: starting bivalirudin Plan: [...] contrast, now requiring dialysis First HD at [place] on 10/25 with tunneled dialysis catheter placement [...] this morning, access site for embolization at [place], no erythema or induration appreciated on exam, exquisitely TTP Groin study showed no signs of PSA, known AV fistula visualized with retrograde flow, vascular med aware- no further recs 10/28: pain less severe, no physical exam findings Repeat Leg DVT shows no pseudoaneurysm Likely due to nerve compression/RP hematoma causing compressive symtpoms S/p R groin drain placed at [place] on 10/24 s/p L groin drain placed at [facility] during embolization on 10/26 Plan: - Pain management-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 MANAGER BILLING as of transfer to [facility] - Will continue to wean dilaudid as pt tolerates, currently on Dilaudid 0.3 mg q6h PRN for pain, oxycodone PO q4h PRN and gabapentin - IR consult for drain evaluation and removal on 11/05 MAINTENANCE: VTE PROPHYLAXIS:?bivalirudin + coumadin NEED FOR ZUNIGA- Removed 11/14/17 LINES: Double lumen dialysis catheter 4/18/18 Dispo-?SNF v. Acute rehabilitation center This note is not final until staffed by the attending physician and authenticated by responsible provider. SIGNATURE: Olga Reyez MD PATIENT NAME: Paloma Cannon DATE: November 23, 2017 TIME: 2:27 PM PAGER: [phone] RAF Terry ATTENDING NOTE: Chart reviewed, patient [...] acute rehab soon [facility] who agrees with need for [facility] Rehab Ros Wayne MD FACP Attending, pager [phone] CONSULT Observed: 11/23/2017 Status: COMPLETED Source: [place] 2:03 PM [facility] REPOSITORY O ID: [id number] Author: Michelle Garcia Service: Physical Medicine AND Rehabilitation Author Type: Nurse Practitioner Type: Consults Filed: 11/23/2017 2:04 PM Note Text: PMANDR consult received today (duplicate). Patient seen by Dr. Starr on 11/15/17 for PMANDR consult with recommendations for likely SNF. Please see consult for details. Will have pt seen for follow up. Thank you for consult. Please call with any questions. Michelle Garcia APRN.[facility] Physical Medicine and Rehabilitation pager [phone] NUTRITION Observed: 11/23/2017 Status: COMPLETED Source: [place] 9:35 AM [facility] [place] REPOSITORY HNO ID: [id number] Author: Belem Varghese) Trace Service: Nutrition Therapy Author Type: Machine Feeder Raw Stock Type: Nutrition Filed: 11/23/2017 9:37 AM Note [...] meals, according to nursing [facility]. The patient reports; she is eating well [...] November 23, 2017 TIME: 9:35 AM PAGER: CBC Collected: 11/23/2017 Status: F Source: [place] 8:55 AM [facility] REPOSITORY TYPE CODE TESTS RESULT OUT OF [...] #### CBC, PTT #### [facility] [address] [place], [place] [address] APTT Collected: 11/23/2017 Status: F Source: [place] 8:55 AM [facility] REPOSITORY TYPE CODE TESTS RESULT OUT OF [...] laboratory APTT reagent in use throughout the [facility]. Performed By: #### CBC, PTT #### [facility] [address] [place], [place] [address] CONSULT PROG Observed: 11/23/2017 Status: COMPLETED Source: [place] 8:38 AM [facility] REPOSITORY HNO ID: [id number] Author: Magdalena Molina Service: Vascular Medicine Author Type: Nurse [...] hgb 11.8 aPTT 48.3 Current Facility-Administered Medications: azaogyjesfPLMTK-gtvokb-duhaklgrz 10 mL oral liquid (BMX 1:1:1) 10 [...] and repeat aPTT tomorrow morning. Please call [facility] [phone] if not within therapeutic range Bival and Coumadin should overlap for a minimum of 5 days and until INR is therapeutic before Bival can be discontinued. aPTTs, CBC/INR daily in house Duration of treatment: senior care SIGNATURE: Magdalena Lewis APRN.CNP PATIENT NAME: Paloma Cannon DATE: November 23, 2017 TIME: 10:50 AM PAGER/CONTACT #: [phone] . APTT Collected: 11/23/2017 Status: F Source: [place] 4:28 AM [facility] REPOSITORY TYPE CODE TESTS RESULT OUT OF [...] laboratory APTT reagent in use throughout the [facility]. Performed By: #### PTT #### [facility] [address] [place], [place] [id number] APTT Collected: 11/23/2017 Status: F Source: [place] 12:28 AM [facility] REPOSITORY TYPE CODE TESTS RESULT OUT OF [...] laboratory APTT reagent in use throughout the [facility]. Performed By: #### PTT #### [place] [address] [place] [address] APTT Collected: 11/22/2017 Status: F Source: [place] 9:08 PM [facility] REPOSITORY TYPE CODE TESTS RESULT OUT OF [...] laboratory APTT reagent in use throughout the [facility]. Performed By: #### PTT #### [place] [address] [place] [address] APTT Collected: 11/22/2017 Status: F Source: [place] 6:45 PM [facility] REPOSITORY TYPE CODE TESTS RESULT OUT OF REFERENCE UNITS RANGE LAB APTT 23.0-32.4 sec APTT Duplicate request Result Comment: Account Credited Performed By: #### PTT #### [place] [address] PTT,ANTICOAG THERAPY Collected: 11/22/2017 Status: F Source: [place] 6:45 PM [facility] REPOSITORY TYPE CODE TESTS RESULT OUT OF [...] laboratory APTT reagent in use throughout the [facility]. Performed By: #### PTTAC #### [facility] [address] [place], [place] [address] PROGRESS Observed: 11/22/2017 Status: COMPLETED Source: [place] 5:48 PM [facility] REPOSITORY HNO ID: [id number] Author: Ros Wayne Service: General Internal Medicine Author Type: Physician Type: Progress Notes Filed: 11/22/2017 8:39 PM Note Text: RAF Terry PROGRESS NOTE For questions regarding this patient today please page [phone] After 5 pm on weekdays and 3pm on weekends and holidays please page transcription manager pager [phone] SERVICE DATE: 11/22/2017 SERVICE TIME: 5:49 PM [...] 20 mg qday MEDICATIONS: Current hospital medications: ruaamaffbwWUNWA-yancdm-jtjijwokj 10 mL oral liquid (BMX 1:1:1) 10 [...] IR emobolization of left L3 artery at [place] on 10/23 IR embolization of left L2 [...] 11/03, 11/13 (heme following); patient is on f3cijxy (Mondays) schedule outpatient Plan: Holding Cytoxan 75 mg in setting of worsening thrombocytopenia Continue prednisone 60 mg with bactrim ppx Appreciate hematology and VM recs Plan is to start bivalrudin trial once platelets stabilize and bridge to coumadin - CAPRICE (acute kidney injury) (HCC) CAPRICE on CKD III, 2/2 contrast, now requiring dialysis First HD at [place] on 10/25 with tunneled dialysis catheter placement [...] this morning, access site for embolization at [place], no erythema or induration appreciated on exam, exquisitely TTP Groin study showed no signs of PSA, known AV fistula visualized with retrograde flow, vascular med aware- no further recs 10/28: pain less severe, no physical exam findings Repeat Leg DVT shows no pseudoaneurysm Likely due to nerve compression/RP hematoma causing compressive symtpoms S/p R groin drain placed at [place] on 10/24 s/p L groin drain placed at [facility] during embolization on 10/26 Plan: - Pain management-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 MANAGER BILLING as of transfer to [facility] - Will continue to wean dilaudid [...] November 22, 2017 TIME: 5:49 PM PAGER: [phone] RAF Terry ATTENDING NOTE: Chart reviewed, patient [...] 11/27 Ros Wayne MD FACP Attending, pager [phone] ALLIED HEALTH Observed: 11/22/2017 Status: COMPLETED Source: [place] 5:00 PM [facility] REPOSITORY HNO ID: [id number] Author: Negrito Kelley (Therapist) Miranda Service: Art [...] 22, 2017 TIME: 5:00 PM PAGER/CONTACT #: [phone] CONSULT PROG Observed: 11/22/2017 Status: COMPLETED Source: [place] 4:01 PM [facility] REPOSITORY HNO ID: [id number] Author: Justina Pollard (Pa) Service: Hematology Author Type: Physician Farm Management Agent Type: Consult Progress Note Filed: 11/22/2017 4:06 PM Note Text: CONSULT PROGRESS NOTE SERVICE DATE: 11/22/2017 CONSULTING SERVICE: Hematology Subjective INTERVAL HPI: PLT count was up to 59 K today Current hospital medications: ygdhacfgjnDOVXP-pduxyr-wlpizyyxa 10 mL oral liquid (BMX 1:1:1) 10 [...] IR guided intervention (initially on 10/23 at [facility] and 10/26 here at [facility]. ? # Antiphospholipid antibody syndrome -recent?home [...] November 22, 2017 TIME: 4:01 PM PAGER: [phone] THERAPY NT Observed: 11/22/2017 Status: COMPLETED Source: [place] 3:27 PM [facility] REPOSITORY HNO ID: [id number] Author: Tamiko (Pt) Adelaida Service: Physical Therapy Author Type: Physical Therapist Type: Therapy (PT/OT/Speech/Resp) Filed: 11/22/2017 3:32 PM Note Text: Physical Therapy Wound/Lymph Treatment SERVICE DATE: 11/22/2017 SERVICE TIME: 1430 to 1453 ROOM: [place] [address] Recommended Discharge Disposition Comments: will require further [...] Patient TREATMENT INTERVENTIONS: Interventions Provided: Manual Therapy (04619) Manual Therapy (05741) Treatment Minutes: 23 2 units Skilled Intervention: [...] 22, 2017 TIME: 3:27 PM PAGER/CONTACT #: [phone] CONSULT Observed: 11/22/2017 Status: COMPLETED Source: [place] 2:59 PM [facility] REPOSITORY O ID: [id number] Author: Lacey (Rn) JEFF Vicente Service: Wound [...] evaluation and assessment was done with Tana PARDO Position on arrival: back Type of Bed: [...] (done). 3. Obtain TruVue boots (Schreiber # [id number]) and use while in bed to offload heels. 4. Obtain positioning wedge (Schreiber #[id number]) and use to offload coccyx with every 2 hour turns. 5. Continue skin prevention measures based on Festus risk assessment scores. Electronically Signed By: Lacey Vicente, MSN RN CWCN [id number] No further visits from [facility]; please re-consult as needed. CONSULT PROG Observed: 11/22/2017 Status: COMPLETED Source: [place] 2:05 PM [facility] REPOSITORY HNO ID: [id number] Author: Paulette Gooden (Elliott) Davonte Service: Vascular [...] and walked 25 feet. Current Facility-Administered Medications: xrzckgkszdBOABH-wsgqci-edaevtvqt 10 mL oral liquid (BMX 1:1:1) 10 [...] 22, 2017 TIME: 2:05 PM PAGER/CONTACT #: [phone] . PROTIME Collected: 11/22/2017 Status: F Source: [place] 12:45 PM [facility] REPOSITORY TYPE CODE TESTS RESULT OUT OF RANGE REFERENCE UNITS LAB PSEC 9.7-13.0 sec PT Sec 10.9 LAB INR 0.9-1.3 PT INR 1.1 Result Comment: Vitamin K Antagonist (VKA) Therapeutic Range: INR 2 to 3 (Target INR of 2.5) Note: For patients treated with VKA drugs, such as warfarin, the [employer] 2012 Guideline recommends [...] #### PT, PTT #### [facility] [address] [place], [place] [address] APTT Collected: 11/22/2017 Status: F Source: [place] 12:45 PM [facility] REPOSITORY TYPE CODE TESTS RESULT OUT OF [...] laboratory APTT reagent in use throughout the [facility]. Performed By: #### PT, PTT #### [facility] [address] [place], [place] [address] ALLIED HEALTH Observed: 11/22/2017 Status: COMPLETED Source: [place] 11:35 AM [facility] REPOSITORY HNO ID: [id number] Author: Kayla Stewart (Therapist) GINA Levin Service: [...] Type: Live Response Before After Pain 04/18 8 Anxiety 07/19 07/19 Mood 07/13 0/4 Facial [...] and will follow up as able. SIGNATURE: Kayla Levin [facility] PATIENT NAME: Paloma Cannon DATE: November 22, 2017 TIME: 4:15 PM PAGER/CONTACT #: [phone] CBC Collected: 11/22/2017 Status: F Source: [place] 4:50 AM [facility] [place] REPOSITORY TYPE CODE TESTS RESULT OUT OF [...] By: #### CBC #### [facility] [address] [place], [place] [address] NURSING PROG Observed: 11/22/2017 Status: COMPLETED Source: [place] 4:09 AM [facility] REPOSITORY HNO ID: [id number] Author: Lisa Sauer) JEFF Bourgeois Service: Nursing Author Type: Registered [...] RN PROGRESS Observed: 11/21/2017 Status: COMPLETED Source: [place] 3:28 PM [facility] REPOSITORY HNO ID: [id number] Author: Ros Wayne Service: General Internal Medicine Author Type: Physician Type: Progress Notes Filed: 11/22/2017 6:22 AM Note Text: RAF Terry PROGRESS NOTE For questions regarding this patient today please page [phone] After 5 pm on weekdays and 3pm on weekends and holidays please page transcription manager pager [phone] SERVICE DATE: 11/21/2017 SERVICE TIME: 3:28 PM INTERVAL HISTORY: - nocturnal oximetry 2-3L NC overnight - decreased prednisone to 40mg PO qday yesterday - decreased Uoutput but due to incorrect reporting - VM wants to hold AC until platelets remain [...] IR emobolization of left L3 artery at [place] on 10/23 IR embolization of left L2 [...] 11/03, 11/13 (heme following); patient is on d3dgrzm (Mondays) schedule outpatient Plan: Holding Cytoxan 75 mg in setting of worsening thrombocytopenia Continue prednisone 60 mg with bactrim ppx Appreciate hematology and VM recs Plan is to start bivalrudin trial once platelets stabilize and bridge to coumadin - CAPRICE (acute kidney injury) (HCC) CAPRICE on CKD III, 2/2 contrast, now requiring dialysis First HD at [place] on 10/25 with tunneled dialysis catheter placement [...] heparin products. - Weakness of left leg 4/26 Left leg weakness/parasthesia Likely related to lumbar nerve compression from large retroperitoneal hematoma Neurology was following, recommended no further intervention On gabapentin renally dosed; 400mg TID - Right groin pain 10/27: C/o acute pain this morning, access site for embolization at [place], no erythema or induration appreciated on exam, exquisitely TTP Groin study showed no signs of PSA, known AV fistula visualized with retrograde flow, vascular med aware- no further recs 10/28: pain less severe, no physical exam findings Repeat Leg DVT shows no pseudoaneurysm Likely due to nerve compression/RP hematoma causing compressive symtpoms S/p R groin drain placed at [place] on 10/24 s/p L groin drain placed at [facility] during embolization on 10/26 Plan: - Pain management-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 MANAGER BILLING as of transfer to [facility] - Will continue to wean dilaudid as pt tolerates, currently on Dilaudid 0.3 mg q4h PRN for pain, oxycodone PO PRN and gabapentin - IR consult for drain evaluation and removal on 11/05 MAINTENANCE: VTE PROPHYLAXIS:?will start AC when platelets are stable >50 NEED FOR ZUNIGA- Removed 11/14/17 LINES: Double lumen dialysis catheter 10/25/17 Dispo-?[facility] v. Acute rehabilitation center This note is not final until staffed by the attending physician and authenticated by responsible provider. SIGNATURE: Olga Reyez MD PATIENT NAME: Paloma Cannon DATE: November 21, 2017 TIME: 3:28 PM PAGER: [phone] RAF Terry ATTENDING NOTE: Chart reviewed, patient [...] ? Ros Wayne MD FACP Attending, pager [phone] ? THERAPY NT Observed: 11/21/2017 Status: COMPLETED Source: [place] 3:26 PM [facility] REPOSITORY HNO ID: [id number] Author: Tamiko (Pt) Adelaida Service: Physical Therapy Author Type: Physical Therapist Type: Therapy (PT/OT/Speech/Resp) Filed: 11/21/2017 3:31 PM Note Text: Physical Therapy Wound/Lymph Treatment SERVICE DATE: 11/21/2017 SERVICE TIME: 1417 to 1445 ROOM: [place] [address] Recommended Discharge Disposition Comments: will require further [...] Patient TREATMENT INTERVENTIONS: Interventions Provided: Manual Therapy (95961) Manual Therapy (94668) Treatment Minutes: 28 2 units Skilled Intervention: [...] 21, 2017 TIME: 3:26 PM PAGER/CONTACT #: [phone] CASE MANAGEM Observed: 11/21/2017 Status: COMPLETED Source: [place] 11:49 AM [facility] REPOSITORY HNO ID: [id number] Author: Jacinta Aguilar (Rn) JEFF Olmedo Service: [...] Will need precert. .AwaitingPMANDR re-eval snf vs [facility]. Per [facility] [place] Liason (p) [phone] unable to accept. Referal sent to Peyman ISBELL (via Acute re[facility] [place] as central number (p) [phone] and f) [phone]) for review at direction of [facility] [place] liason (pt agreeable) IF accepted, Peyman Barker would request pt to receive aphersis in house prior to dc. Primary team informed and will try to accommodate. Per , at dc pt will need apheresis q 2 weeks indefinitely and close daily lab montoring of blood status for possible need for transfusion . Current on 3LO/, has home O2 2L 02 via [facility]. Yang MAZA is Elsa Matos (p) - updated on dc plan.Per Elsa, precert phone # is [phone]. CM to continue to follow SIGNATURE: Jacinta Olmedo RN PATIENT NAME: Paloma Cannon DATE: November 21, 2017 TIME: 11:49 AM PAGER/CONTACT #: [phone] NURSING PROG Observed: 11/21/2017 Status: COMPLETED Source: [place] 11:05 AM [facility] REPOSITORY HNO ID: [id number] Author: Tiffani Sauer) JEFF Hernadez Service: (none) Author Type: Registered Nurse Type: Nursing Progress Note Filed: 11/21/2017 11:10 AM Note Text: Nursing Progress Note Patient Name: Paloma Cannon Patient Location: [place] [address]/H080-16 Daily Note: Pt is AANDOx3. VSS, afebrile, [...] THERAPY NT Observed: 11/21/2017 Status: COMPLETED Source: [place] 10:54 AM [facility] REPOSITORY HNO ID: [id number] Author: Indra Macias) [facility] Service: Physical Therapy Author Type: Banquet Steward Type: Therapy (PT/OT/Speech/Resp) Filed: 11/21/2017 11:03 AM Note Text: Attestation signed by Brenda SanchezPtDevonte Meraz at 11/21/2017 1:30 PM I reviewed and agree with the assessment as documented above. SIGNATURE: Brenda Meraz, PT DATE: November 21, 2017 TIME: 1:29 PM Physical Therapy Treatment SERVICE DATE: 11/21/2017 SERVICE TIME: 0948 to 1047 ROOM: [place] [address] Recommended Discharge Disposition: Acute Rehab Justification For [...] Diagnosis: Reduced mobility-other Interventions Provided: Gait Training (16777);Therapeutic Activity (78873);Therapeutic Exercise (30384) Therapeutic Exercise (44863) Treatment Minutes: 15 1 unit Skilled Intervention(s): [...] in reasoning for each exercise. Therapeutic Activity (63837) Treatment Minutes: 18 1 unit Skilled Intervention(s): [...] gaze, trunk alignment and balance Gait Training (79365) Treatment Minutes: 23 2 units Skilled Intervention(s): [...] CODE: PT 6 Clicks Score: 15 (11/21/17 0933) Mobility: Walking and Moving Around Current [...] 21, 2017 TIME: 10:54 AM PAGER/CONTACT #: [phone] PROGRESS Observed: 11/21/2017 Status: COMPLETED Source: [place] 9:46 AM [facility] [place] REPOSITORY O ID: [id number] Author: Tiffani Hernadez (Rn), RN Service: (none) Author Type: Registered Nurse Type: Progress Notes Filed: 11/21/2017 9:47 AM Note Text: Nursing Progress Note Vital Clinical Research Scientist Assessment Note Patient Name: Paloma Cannon Patient [...] ALLIED HEALTH Observed: 11/21/2017 Status: COMPLETED Source: [place] 9:41 AM [facility] [place] REPOSITORY O ID: [id number] Author: Allie Baig (Rn), RN Service: Wound/Ostomy Author Type: Registered Nurse Type: Allied Health Filed: 11/21/2017 9:42 AM Note Text: ET/WOCN Nursing Consult Topic: ET/WOCN Consultation Note ET Outcome: Previously pouching L groin wound. Pt no longer has pouch over wound states that drainage has stopped. No other needs from WO at this time. Please place [facility] if patients needs change Time Increment: 15 minutes Allie JOHNSONN RN WOC Nursing WO Nursing - Please place consult via [facility]. Thank you. (M-F: [phone]; Weekends AND Holidays: [phone]). CONSULT PROG Observed: 11/21/2017 Status: COMPLETED Source: [place] 8:39 AM [facility] REPOSITORY O ID: [id number] Author: Justina Pollard (Pa) Service: Hematology Author Type: Physician Farm Management Agent Type: Consult Progress Note Filed: 11/21/2017 4:02 [...] IR guided intervention (initially on 10/23 at [facility] and 10/26 here at [facility]. ? # Antiphospholipid antibody syndrome -recent?home [...] November 21, 2017 TIME: 8:39 AM PAGER: [phone] CBC Collected: 11/21/2017 Status: F Source: [place] 4:40 AM [facility] REPOSITORY TYPE CODE TESTS RESULT OUT OF [...] CBC, BMP, MG1 #### [facility] [address] [place] [address] BASIC METABOLIC PANL Collected: 11/21/2017 Status: F Source: [place] 4:40 [facility] REPOSITORY TYPE CODE TESTS RESULT OUT OF REFERENCE UNITS RANGE LAB GLU 74-99 mg/dL Low Glucose 71 Result Comment: The [employer] (ADA) provides guidance for cutoff [...] Standards of Medical Care in Diabetes 2016, [employer]. Diabetes Care. 2016.39(Suppl 1). LAB [...] CBC, BMP, MG1 #### [facility] [address] [place] [id number] MAGNESIUM Collected: 11/21/2017 Status: F Source: [place] 4:40 AM [facility] REPOSITORY TYPE CODE TESTS RESULT OUT OF REFERENCE UNITS RANGE LAB MG 1.7-2.3 mg/dL Magnesium 1.8 Performed By: #### CBC, BMP, MG1 #### [facility] [address] [place], [place] [address] NURSING PROG Observed: 11/20/2017 Status: COMPLETED Source: [place] 11:42 PM [facility] REPOSITORY HNO ID: [id number] Author: Lisa Bourgeois (Rn), RN Service: Nursing Author Type: Registered Nurse Type: Nursing Progress Note Filed: 11/21/2017 6:31 AM Note Text: Nursing Progress Note Patient Name: Paloma Cannon Patient Location: H080 015/H080-16 Daily Note: RT placed pt on pulse [...] [place] 3 [place] [address] notifying of O2 increase. Pt sleeping at this time. Satting 89-91% on 3 L currently. Pt educated on importance of turning and skin care, pt understands, refusing throughout night d/t pt being comfortable and wanting to sleep. This note was completed by: Lisa Bourgeois RN THERAPY NT Observed: 11/20/2017 Status: COMPLETED Source: [place] 4:01 PM [facility] REPOSITORY HNO ID: [id number] Author: Indra Woods (Senior Geologist) Service: Physical Therapy Author Type: Banquet Steward Type: Therapy (PT/OT/Speech/Resp) Filed: 11/20/2017 4:01 PM Note Text: Attestation signed by Brenda Meraz (Pt) at 11/21/2017 7:35 AM I reviewed and agree with the assessment as documented above. SIGNATURE: Brenda Meraz PT DATE: November 21, 2017 TIME: 7:34 AM PHYSICAL THERAPY MISSED VISIT SERVICE DATE: 11/20/2017 SERVICE TIME: 1600 to 1600 ROOM: [id number] Attempted Treatment. Patient not seen due to Other: See Comment (Out of room). SIGNATURE: Indra Woods PTA PATIENT NAME: Paloma Cannon DATE: November 20, 2017 TIME: 4:01 PM PAGER/CONTACT #: [phone] PROGRESS Observed: 11/20/2017 Status: COMPLETED Source: [place] 3:02 PM [facility] REPOSITORY HNO ID: [id number] Author: Ros Wayne Service: General Internal Medicine Author Type: Physician Type: Progress Notes Filed: 11/20/2017 8:50 PM Note Text: RAF Terry PROGRESS NOTE For questions regarding this patient today please page [phone] After 5 pm on weekdays and 3pm on weekends and holidays please page transcription manager pager [phone] SERVICE DATE: 11/20/2017 SERVICE TIME: 3:03 PM [...] IR emobolization of left L3 artery at [place] on 10/23 IR embolization of left L2 [...] 11/03, 11/13 (heme following); patient is on [id number] (Mondays) schedule outpatient Plan: Holding Cytoxan 75 mg in setting of worsening thrombocytopenia Continue prednisone 60 mg with bactrim ppx Appreciate hematology and VM recs Plan is to start bivalrudin trial once platelets stabilize and bridge to coumadin - CAPRICE (acute kidney injury) (HCC) CAPRICE on CKD III, 2/2 contrast, now requiring dialysis First HD at [place] on 10/25 with tunneled dialysis catheter placement [...] this morning, access site for embolization at [place], no erythema or induration appreciated on exam, exquisitely TTP Groin study showed no signs of PSA, known AV fistula visualized with retrograde flow, vascular med aware- no further recs 10/28: pain less severe, no physical exam findings Repeat Leg DVT shows no pseudoaneurysm Likely due to nerve compression/RP hematoma causing compressive symtpoms S/p R groin drain placed at [place] on 10/24 s/p L groin drain placed at [facility] during embolization on 10/26 Plan: - Pain management-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 MANAGER BILLING as of transfer to [facility] - Will continue to wean dilaudid as pt tolerates, currently on Dilaudid 0.3 mg q4h PRN for pain, oxycodone PO PRN and gabapentin - IR consult for drain evaluation and removal on 11/05 MAINTENANCE: VTE PROPHYLAXIS:?will start bivalirudin most likely today NEED FOR ZUNIGA- Removed 11/14/17 LINES: Double lumen dialysis catheter 10/25/17 Dispo-?[facility] v. Acute rehabilitation good hope This note is not final until staffed by the attending physician and authenticated by responsible provider. SIGNATURE: Olga Reyez MD PATIENT NAME: Paloma Cannon DATE: November 20, 2017 TIME: 3:03 PM PAGER: [phone] RAF Terry ATTENDING NOTE: Chart reviewed, patient [...] above Ros Wayne MD FACP Attending, pager [phone] CASE MANAGEM Observed: 11/20/2017 Status: COMPLETED Source: [place] 12:41 PM [facility] REPOSITORY HNO ID: [id number] Author: Renetta Villanueva Service: Care Management Author Type: (none) Type: Care Mgt Progress Note Filed: 11/20/2017 12:42 PM Note Text: CARE MANAGEMENT PROGRESS NOTE SERVICE DATE: 11/20/2017 SERVICE TIME: 12:02 PM LOS: 26 days IM letter given to patient on 11/20/17. SIGNATURE: Renetta Villanueva Baseball Inspector PATIENT NAME: Paloma Cannon DATE: November 20, 2017 TIME: 12:41 PM PAGER/CONTACT #: [phone] THERAPY NT Observed: 11/20/2017 Status: COMPLETED Source: [place] 12:29 PM [facility] REPOSITORY HNO ID: [id number] Author: Akanksha Murdock (Otr/L) Service: Occupational Therapy Author Type: Occupational Therapist Type: Therapy (PT/OT/Speech/Resp) Filed: 11/20/2017 12:32 PM Note Text: Occupational Therapy Treatment SERVICE DATE: 11/20/2017 SERVICE TIME: 1140 to 1150 ROOM: [place] [address] Recommended Discharge Disposition: Acute Rehab Justification For [...] daily living (ADL) Interventions Provided: Therapeutic Exercise (68403) Therapeutic Exercise (69986) Treatment Minutes: 10 1 unit Skilled Intervention(s): [...] Self Care Goal Status (G8988): CJ (11/20/17 114) Based on clinical assessment and the [...] details for this therapy evaluation/treatment. SIGNATURE: JERMAINE Anand/Allie PATIENT NAME: Paloma Cannon DATE: November 20, 2017 TIME: 12:29 PM PAGER: [phone] CONSULT PROG Observed: 11/20/2017 Status: COMPLETED Source: [place] 10:04 AM [facility] REPOSITORY HNO ID: [id number] Author: Justina Pollard) Service: Hematology Author Type: Physician Farm Management Agent Type: Consult Progress Note Filed: 11/20/2017 2:29 [...] IR guided intervention (initially on 10/23 at [facility] and 10/26 here at [facility]. ? # Antiphospholipid antibody syndrome -recent?home [...] November 20, 2017 TIME: 10:05 AM PAGER: [phone] THERAPY NT Observed: 11/20/2017 Status: COMPLETED Source: [place] 9:51 AM [facility] REPOSITORY HNO ID: [id number] Author: Indra Woods (Senior Geologist) Service: Physical Therapy Author Type: Banquet Steward Type: Therapy (PT/OT/Speech/Resp) Filed: 11/20/2017 9:53 AM Note Text: Attestation signed by Brenda Meraz (Pt) at 11/20/2017 10:49 AM I reviewed and agree with the assessment as documented above. SIGNATURE: Brenda Meraz, PT DATE: November 20, 2017 TIME: 10:48 AM PHYSICAL THERAPY MISSED VISIT SERVICE DATE: 11/20/2017 SERVICE TIME: 0950 to 0950 ROOM: [place] [address] Attempted Treatment. Patient not seen due to declined (Pt declined due to having a lot of back pain, Pt just received pain meds. Will attempt in pm as able). SIGNATURE: Indra Woods PTA PATIENT NAME: Paloma Cannon DATE: November 20, 2017 TIME: 9:51 AM PAGER/CONTACT #: [phone] CBC Collected: 11/20/2017 Status: F Source: [place] 4:00 AM [facility] REPOSITORY TYPE CODE TESTS RESULT OUT OF [...] #### CBC, BMP #### [facility] [address] [place], [place] [address] BASIC METABOLIC PANL Collected: 11/20/2017 Status: F Source: [place] 4:00 AM [facility] REPOSITORY TYPE CODE TESTS RESULT OUT OF REFERENCE UNITS RANGE LAB GLU 74-99 mg/dL Glucose 78 Result Comment: The [place] Diabetes Association (ADA) provides guidance for cutoff [...] Standards of Medical Care in Diabetes 2016, [place]. Diabetes Care. 2016.39(Suppl 1). LAB [...] #### CBC, BMP #### [facility] [address] [place], [place] [id number] TYPE AND SCREEN Collected: 11/20/2017 Status: F Source: [place] 4:00 AM [facility] REPOSITORY TYPE CODE TESTS RESULT OUT OF REFERENCE UNITS RANGE LAB %ABR B ABO/RH(D) POSITIVE LAB % Antibody POS Screen Performed By: #### TSCR #### [facility] [address] [place], [place] [address] XR CHEST 1V FRONTAL Observed: 11/19/2017 Status: F Source: [facility] 11:07 PM [facility] REPOSITORY * * *Final Report* * * [...] is mildly enlarged. Other: No bony abnormalities. Pie Topper: MURTAZA Transcribe Date/Time: Nov 20 2017 6:25A Dictated by : MERCY PETERS MD This examination was interpreted and the report reviewed and electronically signed by: MAHOGANY ECHAVARRIA MD on Nov 20 2017 7:30AM EST [id number] NURSING PROG Observed: 11/19/2017 Status: COMPLETED Source: [place] 11:04 PM [facility] REPOSITORY HNO ID: [id number] Author: Lisa Bourgeois (Rn), RN Service: Nursing Author Type: Registered Nurse Type: Nursing Progress Note Filed: 11/19/2017 11:08 PM Note Text: Nursing Progress Note Patient Name: Paloma Cannon Patient Location: [facility] 015/H080-16 Daily Note: Pt off floor in [...] NURSING PROG Observed: 11/19/2017 Status: COMPLETED Source: [place] 4:01 PM [facility] REPOSITORY HNO ID: [id number] Author: Grace Deal (Rn), RN Service: Nursing Author Type: Registered Nurse Type: Nursing Progress Note Filed: 11/19/2017 4:12 PM Note Text: Nursing Progress Note Patient Name: aPloma Cannon Patient Location: [facility]080 015/H080-16 Daily Note:This [...] RN PROGRESS Observed: 11/19/2017 Status: COMPLETED Source: [place] 3:18 PM [facility] REPOSITORY O ID: [id number] Author: Ros Wayne Service: General Internal Medicine Author Type: Physician Type: Progress Notes Filed: 11/19/2017 9:08 PM Note Text: RAF Terry PROGRESS NOTE For questions regarding this patient today please page [phone] After 5 pm on weekdays and 3pm on weekends and holidays please page transcription manager pager [phone] SERVICE DATE: 11/19/2017 SERVICE TIME: 3:18 PM [...] tablet Take 1 tablet by mouth every Ihsan,Monday,Monday. fluticasone (FLONASE) 50 mcg/actuation nasal spray Use [...] IR emobolization of left L3 artery at [place] on 10/23 IR embolization of left L2 [...] 11/03, 11/13 (heme following); patient is on [id number] (Mondays) schedule outpatient Plan: Holding Cytoxan 75 mg in setting of worsening thrombocytopenia Continue prednisone 60 mg with bactrim ppx Appreciate hematology and VM recs Plan is to start bivalrudin trial once platelets stabilize and bridge to coumadin - CAPRICE (acute kidney injury) (HCC) CAPRICE on CKD III, 2/2 contrast, now requiring dialysis First HD at [place] on 10/25 with tunneled dialysis catheter placement [...] this morning, access site for embolization at [place], no erythema or induration appreciated on exam, exquisitely TTP Groin study showed no signs of PSA, known AV fistula visualized with retrograde flow, vascular med aware- no further recs 10/28: pain less severe, no physical exam findings Repeat Leg DVT shows no pseudoaneurysm Likely due to nerve compression/RP hematoma causing compressive symtpoms S/p R groin drain placed at [place] on 10/24 s/p L groin drain placed at [facility] during embolization on 10/26 Plan: - Pain management-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 MANAGER BILLING as of transfer to [facility] - Will continue to wean dilaudid as pt tolerates, currently on Dilaudid 0.3 mg q4h PRN for pain, oxycodone PO PRN and gabapentin - IR consult for drain evaluation and removal on 11/05 MAINTENANCE: VTE PROPHYLAXIS:?will start bivalirudin most likely today NEED FOR ZUNIGA- Removed 11/14/17 LINES: Double lumen dialysis catheter 10/25/17 Dispo-?[facility] v. Acute rehabilitation center This note is not final until staffed by the attending physician and authenticated by responsible provider. SIGNATURE: Olga Reyez MD PATIENT NAME: Paloma Cannon DATE: November 19, 2017 TIME: 3:18 PM PAGER: [phone] RAF Terry ATTENDING NOTE: Chart reviewed, patient [...] ? Ros Wayne MD FACP Attending, pager [phone] NURSING PROG Observed: 11/19/2017 Status: COMPLETED Source: [place] 6:55 AM [facility] REPOSITORY HNO ID: [id number] Author: Lisa Bourgeois (Rn), RN Service: Nursing Author Type: Registered Nurse Type: Nursing Progress Note Filed: 11/19/2017 6:55 AM Note Text: Nursing Progress Note Patient Name: Paloma Cannon Patient Location: [facility] 015/H080-16 Daily Note: Raf nights paged regarding K of 3.3 on this AM labs. This note was completed by: Lisa Bourgeois RN CBC Collected: 11/19/2017 Status: F Source: [place] 4:23 AM [facility] REPOSITORY TYPE CODE TESTS RESULT OUT OF [...] #### CBC, BMP #### [facility] [address] [id number] BASIC METABOLIC PANL Collected: 11/19/2017 Status: F Source: [place] 4:23 AM [facility] REPOSITORY TYPE CODE TESTS RESULT OUT OF REFERENCE UNITS RANGE LAB GLU 74-99 mg/dL High Glucose 107 Result Comment: The [place] Diabetes Association (ADA) provides guidance for cutoff [...] Standards of Medical Care in Diabetes 2016, [place] Diabetes Association. Diabetes Care. 2016.39(Suppl 1). LAB [...] #### CBC, BMP #### [facility] [address] [place], [place] [address] NURSING PROG Observed: 11/18/2017 Status: COMPLETED Source: [place] 3:44 PM [facility] [place] REPOSITORY HNO ID: [id number] Author: Grace Deal (Rn), RN Service: Nursing Author Type: Registered Nurse Type: Nursing Progress Note Filed: 11/18/2017 7:10 PM Note Text: Nursing Progress Note Patient Name: Paloma Cannon [address] Daily Note:Changed dressing to both left chest [...] RN PROGRESS Observed: 11/18/2017 Status: COMPLETED Source: [place] 2:33 PM [facility] REPOSITORY HNO ID: [id number] Author: Ros Wayne Service: General Internal Medicine Author Type: Physician Type: Progress Notes Filed: 11/18/2017 9:53 PM Note Text: RAF Terry PROGRESS NOTE For questions regarding this patient today please page [phone] After 5 pm on weekdays and 3pm on weekends and holidays please page transcription manager pager [phone] INTERVAL HISTORY: - Platelets downtrended today. 39. [...] IR emobolization of left L3 artery at [place] on 10/23 IR embolization of left L2 [...] 11/03, 11/13 (heme following); patient is on [id number] (Mondays) schedule outpatient Plan: Holding Cytoxan 75 mg in setting of worsening thrombocytopenia Continue prednisone 60 mg with bactrim ppx Appreciate hematology and VM recs Plan is to start bivalrudin trial once platelets stabilize and bridge to coumadin - CAPRICE (acute kidney injury) (HCC) CAPRICE on CKD III, 2/2 contrast, now requiring dialysis First HD at [place] on 10/25 with tunneled dialysis catheter placement [...] this morning, access site for embolization at [place], no erythema or induration appreciated on exam, exquisitely TTP Groin study showed no signs of PSA, known AV fistula visualized with retrograde flow, vascular med aware- no further recs 10/28: pain less severe, no physical exam findings Repeat Leg DVT shows no pseudoaneurysm Likely due to nerve compression/RP hematoma causing compressive symtpoms S/p R groin drain placed at [place] on 10/24 s/p L groin drain placed at [facility] during embolization on 10/26 Plan: - Pain management-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 MANAGER BILLING as of transfer to [facility] - Will continue to wean dilaudid as pt tolerates, currently on Dilaudid 0.3 mg q4h PRN for pain, oxycodone PO PRN and gabapentin - IR consult for drain evaluation and removal on 11/05 MAINTENANCE: VTE PROPHYLAXIS:?will start bivalirudin once platelet count improves to 50. NEED FOR ZUNIGA- Removed 11/14/17 LINES: Double lumen dialysis catheter 10/25/17 Dispo-?[facility] v. Acute rehabilitation center This note is not final until staffed by the attending physician and authenticated by responsible provider. Gustavo Vidal MD IM PGY-3, [id number] 11/18/2017 2:34 PM RAF Trery ATTENDING NOTE: Chart reviewed, patient seen and [...] chair Ros Wayne MD FACP Attending, pager [phone] METHYLMALONIC ACID Collected: 11/18/2017 Status: F Source: [place] 8:59 AM [facility] REPOSITORY TYPE CODE TESTS RESULT OUT OF REFERENCE UNITS RANGE LAB MMA 79-376 nmol/L Methylmalonic Acid 336 Result Comment: This test was developed and its performance characteristics determined by [facility]'s Ros Read [facility] [place] ([facility]). It has not been cleared or approved by the FDA. [facility] is regulated under CLIA as qualified to perform high-complexity testing. This test is used for clinical purposes. It should not be regarded as investigational or for research. Performed By: #### MMA #### [facility] [address] [place] [address] CBC Collected: 11/18/2017 Status: F Source: [place] 4:11 AM [facility] REPOSITORY TYPE CODE TESTS RESULT OUT OF [...] #### CBC, BMP #### [facility] [address] [place], [place] [address] BASIC METABOLIC PANL Collected: 11/18/2017 Status: F Source: [place] 4:11 AM [facility] REPOSITORY TYPE CODE TESTS RESULT OUT OF REFERENCE UNITS RANGE LAB GLU 74-99 mg/dL High Glucose 101 Result Comment: The [place] Diabetes Association (ADA) provides guidance for cutoff [...] Standards of Medical Care in Diabetes 2016, [place] Diabetes Association. Diabetes Care. 2016.39(Suppl 1). LAB [...] GFR. Performed By: #### CBC, BMP #### [facility] [address] [id number] THERAPY NT Observed: 11/17/2017 Status: COMPLETED Source: [place] 11:29 AM [facility] REPOSITORY HNO ID: [id number] Author: Tamiko Son (Pt) Service: Physical Therapy Author Type: Physical Therapist Type: Therapy (PT/OT/Speech/Resp) Filed: 11/17/2017 11:36 AM Note Text: Physical Therapy Wound/Lymph Treatment SERVICE DATE: 11/17/2017 SERVICE TIME: 1038 to 1110 ROOM: [place] [address] Recommended Discharge Disposition Comments: will require further [...] Patient TREATMENT INTERVENTIONS: Interventions Provided: Manual Therapy (67827) Manual Therapy (13398) Treatment Minutes: 32 2 units Skilled Intervention: [...] 17, 2017 TIME: 11:29 AM PAGER/CONTACT #: [phone] THERAPY NT Observed: 11/17/2017 Status: COMPLETED Source: [place] 10:45 AM [facility] REPOSITORY HNO ID: [id number] Author: Indra Woods (Senior Geologist) Service: Physical Therapy Author Type: Banquet Steward Type: Therapy (PT/OT/Speech/Resp) Filed: 11/17/2017 12:21 PM Note Text: Attestation signed by Jocelyn Coleman (Pt) at 11/17/2017 2:01 PM I reviewed and agree with the documentation corresponding to this therapy visit. SIGNATURE: Jocelyn Coleman, PT DATE: November 17, 2017 TIME: 2:00 PM Physical Therapy Treatment SERVICE DATE: 11/17/2017 SERVICE TIME: 0925 to 1035 ROOM: [place] [address] Recommended Discharge Disposition: Acute Rehab Justification For [...] Diagnosis: Reduced mobility-other Interventions Provided: Gait Training (52407);Therapeutic Activity (70989);Therapeutic Exercise (94945) Therapeutic Exercise (03556) Treatment Minutes: 15 1 unit Skilled Intervention(s): [...] LAQ with 5 second hold. Therapeutic Activity (25075) Treatment Minutes: 30 2 units Skilled Intervention(s): [...] pacing activity. Transfer training from bed to/from BSC with walker with cues for walker management, balance, foot placement, trunk alignment and body positioning. Static standing for hygiene with CGA/ minimal assist with cues for knee extension, forward gaze, trunk alignment and balance. Patient required extra time for all activities due to fatigue and pain. Gait Training (84110) Treatment Minutes: 23 2 units Skilled Intervention(s): [...] CODE: PT 6 Clicks Score: 12 (11/17/17 0925) Mobility: Walking and Moving Around Current Status [...] 17, 2017 TIME: 10:45 AM PAGER/CONTACT #: [phone] CONSULT Observed: 11/17/2017 Status: COMPLETED Source: [place] 10:01 AM [facility] REPOSITORY HNO ID: [id number] Author: Lila Weldon Service: Vascular Medicine Author [...] 17, 2017 TIME: 10:02 AM PAGER/CONTACT #: [phone] . [facility] STAFF PHYSICIAN NOTE OF PERSONAL INVOLVEMENT IN CARE I have reviewed the note obtained and documented by the fellow and I personally participated in the fernandes components. I have discussed the case and management of the patient's care. The following comments revise or confirm relevant fernandes components of the note. Lila Weldon MD CONSULT PROG Observed: 11/17/2017 Status: COMPLETED Source: [place] 9:10 AM [facility] REPOSITORY HNO ID: [id number] Author: Justina Pollard (Cy) Service: Hematology Author Type: Physician Farm Management Agent Type: Consult Progress Note Filed: 11/17/2017 6:58 [...] IR guided intervention (initially on 10/23 at [facility] and 10/26 here at [facility]. ? # Antiphospholipid antibody syndrome -recent?home [...] November 17, 2017 TIME: 9:10 AM PAGER: [phone] PROGRESS Observed: 11/17/2017 Status: COMPLETED Source: [place] 5:58 AM [facility] REPOSITORY HNO ID: [id number] Author: Ros Wayne Service: General Internal Medicine Author Type: Physician Type: Progress Notes Filed: 11/17/2017 4:03 PM Note Text: RAF Terry PROGRESS NOTE For questions regarding this patient today please page [phone] After 5 pm on weekdays and 3pm on weekends and holidays please page transcription manager pager [phone] SERVICE DATE: 11/17/2017 SERVICE TIME: 5:58 AM [...] IR emobolization of left L3 artery at [place] on 10/23 IR embolization of left L2 [...] 11/03, 11/13 (heme following); patient is on [id number] (Mondays) schedule outpatient Plan: Holding Cytoxan 75 mg in setting of worsening thrombocytopenia Continue prednisone 60 mg with bactrim ppx Appreciate hematology and VM recs Plan is to start bivalrudin trial once platelets stabilize and bridge to coumadin - CAPRICE (acute kidney injury) (HCC) CAPRICE on CKD III, 2/ contrast, now requiring dialysis First HD at [place] on 10/25 with tunneled dialysis catheter placement [...] this morning, access site for embolization at [place], no erythema or induration appreciated on exam, exquisitely TTP Groin study showed no signs of PSA, known AV fistula visualized with retrograde flow, vascular med aware- no further recs 10/28: pain less severe, no physical exam findings Repeat Leg DVT shows no pseudoaneurysm Likely due to nerve compression/RP hematoma causing compressive symtpoms S/p R groin drain placed at [place] on 10/24 s/p L groin drain placed at [facility] during embolization on 10/26 Plan: - Pain management-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 MANAGER BILLING as of transfer to [facility] - Will continue to wean dilaudid [...] November 17, 2017 TIME: 5:58 AM PAGER: [phone] RAF Terry ATTENDING NOTE: Chart reviewed, patient [...] chair Ros Wayne MD FACP Attending, pager [phone] MAGNESIUM Collected: 11/17/2017 Status: F Source: [place] 4:07 AM [facility] REPOSITORY TYPE CODE TESTS RESULT OUT OF REFERENCE UNITS RANGE LAB MG 1.7-2.3 mg/dL Magnesium 1.9 Performed By: #### MG1, PHOS, BMP, CBC, B12 #### [facility] [address] [place], [place] [address] PHOSPHORUS Collected: 11/17/2017 Status: F Source: [place] 4:07 AM [facility] REPOSITORY TYPE CODE TESTS RESULT OUT OF REFERENCE UNITS RANGE LAB PHOS 2.7-4.8 mg/dL Phosphorus 4.3 Performed By: #### MG1, PHOS, BMP, CBC, B12 #### [facility] [address] [place] [id number] BASIC METABOLIC PANL Collected: 11/17/2017 Status: F Source: [place] 4:07 AM [facility] REPOSITORY TYPE CODE TESTS RESULT OUT OF REFERENCE UNITS RANGE LAB GLU 74-99 mg/dL High Glucose 120 Result Comment: The [place] Diabetes Association (ADA) provides guidance for cutoff [...] Standards of Medical Care in Diabetes 2016, [place] Diabetes Association. Diabetes Care. 2016.39(Suppl 1). LAB [...] BMP, CBC, B12 #### [facility] [place], [place] [address] CBC Collected: 11/17/2017 Status: F Source: [place] 4:07 AM [facility] REPOSITORY TYPE CODE TESTS RESULT OUT OF [...] BMP, CBC, B12 #### [facility] [place], [place] [address] VITAMIN B12 Collected: 11/17/2017 Status: F Source: [place] 4:07 AM [facility] REPOSITORY TYPE CODE TESTS RESULT OUT OF REFERENCE UNITS RANGE LAB B12 232-1245 pg/mL Vitamin B12 272 Performed By: #### MG1, PHOS, BMP, CBC, B12 #### [facility] [address] [place], [place] [address] PROGRESS Observed: 11/16/2017 Status: COMPLETED Source: [place] 4:21 PM [facility] REPOSITORY HNO ID: [id number] Author: Ros Wayne Service: General Internal Medicine Author Type: Physician Type: Progress Notes Filed: 11/16/2017 9:58 PM Note Text: RAF Terry PROGRESS NOTE For questions regarding this patient today please page [phone] After 5 pm on weekdays and 3pm on weekends and holidays please page transcription manager pager [phone] SERVICE DATE: 11/16/2017 SERVICE TIME: 4:21 PM [...] IR emobolization of left L3 artery at [place] on 10/23 IR embolization of left L2 [...] 11/03, 11/13 (heme following); patient is on [id number] (Mondays) schedule outpatient Plan: Holding Cytoxan 75 mg in setting of worsening thrombocytopenia Continue prednisone 60 mg with bactrim ppx Appreciate hematology and VM recs Plan is to start bivalrudin trial once platelets stabilize and bridge to coumadin - CAPRICE (acute kidney injury) (HCC) CAPRICE on CKD III, 2/ contrast, now requiring dialysis First HD at [place] on 10/25 with tunneled dialysis catheter placement [...] this morning, access site for embolization at [place], no erythema or induration appreciated on exam, exquisitely TTP Groin study showed no signs of PSA, known AV fistula visualized with retrograde flow, vascular med aware- no further recs 10/28: pain less severe, no physical exam findings Repeat Leg DVT shows no pseudoaneurysm Likely due to nerve compression/RP hematoma causing compressive symtpoms S/p R groin drain placed at [place] on 10/24 s/p L groin drain placed at [facility] during embolization on 10/26 Plan: - Pain management-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 MANAGER BILLING as of transfer to [facility] - Will continue to wean dilaudid [...] November 16, 2017 TIME: 4:21 PM PAGER: [phone] RAF Terry ATTENDING NOTE: Appreciate HEME team [...] qAM Ros Wayne MD FACP Attending, pager [phone] [facility] Observed: 11/16/2017 Status: COMPLETED Source: [place] 2:45 PM [facility] [place] REPOSITORY [facility] ID: [id number] Author: Kayla Levin (Therapist), GINA Service: Music [...] to music Music Used: You Are My [place] Style of Music: Traditional Family Present: No [...] Will continue to follow. SIGNATURE: Kayla Levin MT- PATIENT NAME: Paloma Cannon DATE: November 17, 2017 TIME: 8:59 AM PAGER/CONTACT #: [phone] [facility] Observed: 11/16/2017 Status: COMPLETED Source: [place] 2:38 PM [facility] REPOSITORY HNO ID: [id number] Author: Allie Baig (Rn), RN Service: Wound/Ostomy [...] weekly change Time Increment: 15 minutes Allie Baig BSN RN WOC Nursing WO Nursing - Please place consult via moneymeets. Thank you. (M-F: [phone]; Weekends AND Holidays: [phone]). THERAPY NT Observed: 11/16/2017 Status: COMPLETED Source: [place] 2:06 PM [facility] REPOSITORY HNO ID: [id number] Author: Tamiko Son (Pt) Service: Physical Therapy Author Type: Physical Therapist Type: Therapy (PT/OT/Speech/Resp) Filed: 11/16/2017 2:12 PM Note Text: Physical Therapy Wound/Lymph Treatment SERVICE DATE: 11/16/2017 SERVICE TIME: 922 to 1003 [facility]: [facility] Recommended Discharge Disposition Comments: will require further [...] Patient TREATMENT INTERVENTIONS: Interventions Provided: Manual Therapy (32330) Manual Therapy (03037) Treatment Minutes: 41 3 units Skilled Intervention: [...] 16, 2017 TIME: 2:06 PM PAGER/CONTACT #: [phone] THERAPY NT Observed: 11/16/2017 Status: COMPLETED Source: [place] 1:37 PM [facility] REPOSITORY O ID: [id number] Author: Zahra Burks (Go-L) Service: Occupational Therapy Author Type: Weeder Type: Therapy (PT/OT/Speech/Resp) Filed: 11/16/2017 1:44 PM Note Text: Attestation signed by Yue Uriostegui at 11/16/2017 3:13 PM I reviewed and agree with the documentation corresponding to this therapy visit. SIGNATURE: BARRIE Maldonado DATE: November 16, 2017 TIME: 3:13 PM Occupational Therapy Treatment SERVICE DATE: 11/16/2017 SERVICE TIME: 1141 to 1234 ROOM: [place] [address] Recommended Discharge Disposition: Acute Rehab Justification For [...] daily living (ADL) Interventions Provided: Therapeutic Exercise (91786);Therapeutic Activity (35079);Self Half-Way Management (69185) Therapeutic Exercise (29839) Treatment Minutes: 28 2 units Skilled Intervention(s): [...] , D1 flexion/extension, D2 flexion/extension. Therapeutic Activity (74533) Treatment Minutes: 10 1 unit Skilled Intervention(s): Educated on walker safety and proper hand placement during sit<>stand transfers. Pt required mod A for elevated surface and max A for standard surface. Educated on AR vs SNF and therapist d/c recommendations. Self Half-Way Management (74363) Treatment Minutes: 15 1 unit Skilled Intervention(s): [...] complete details for this therapy evaluation/treatment. SIGNATURE: MAICO Perez PATIENT NAME: Paloma Cannon DATE: November 16, 2017 TIME: 1:37 PM PAGER: [phone] CBC Collected: 11/16/2017 Status: F Source: [place] 5:24 AM [facility] REPOSITORY TYPE CODE TESTS RESULT [...] MG1, PHOS, BMP #### [facility] [address] [place], [place] [address] MAGNESIUM Collected: 11/16/2017 Status: F Source: [place] 5:24 AM [facility] REPOSITORY TYPE CODE TESTS RESULT OUT OF REFERENCE UNITS RANGE LAB MG 1.7-2.3 mg/dL Magnesium 2.0 Performed By: #### CBC, MG1, PHOS, BMP #### [facility] [address] [id number] PHOSPHORUS Collected: 11/16/2017 Status: F Source: [place] 5:24 AM [facility] REPOSITORY TYPE CODE TESTS RESULT OUT OF REFERENCE UNITS RANGE LAB PHOS 2.7-4.8 mg/dL Phosphorus 4.4 Performed By: #### CBC, MG1, PHOS, BMP #### [facility] [address] [address] BASIC METABOLIC PANL Collected: 11/16/2017 Status: F Source: [place] 5:24 AM [facility] REPOSITORY TYPE CODE TESTS RESULT OUT OF REFERENCE UNITS RANGE LAB GLU 74-99 mg/dL Low Glucose 73 Result Comment: The [place] Diabetes Association (ADA) provides guidance for cutoff [...] Standards of Medical Care in Diabetes 2016, [place] Diabetes Association. Diabetes Care. 2016.39(Suppl 1). LAB [...] MG1, PHOS, BMP #### [facility] [address] [place], [place] [address] TYPE AND SCREEN Collected: 11/16/2017 Status: F Source: [place] 5:24 AM [facility] REPOSITORY TYPE CODE TESTS RESULT OUT OF REFERENCE UNITS RANGE LAB %ABR B ABO/RH(D) POSITIVE LAB % Antibody POS Screen Performed By: #### TSCR #### [facility] [address] [place], [place] [address] CONSULT PROG Observed: 11/15/2017 Status: COMPLETED Source: [place] 4:47 PM [facility] REPOSITORY HNO ID: [id number] Author: Luz Maria Wolfe) Service: Hematology/Oncology Author [...] IR guided intervention (initially on 10/23 at [facility] and 10/26 here at [facility]. ? # Antiphospholipid antibody syndrome -recent?home [...] adequate for anticoagulation, [facility] starting bivalirudin with bridge to coumadin Luz Maria Wolfe MD November 15, 2017 5:11 PM CASE MANAGEM Observed: 11/15/2017 Status: COMPLETED Source: [place] 3:20 PM [facility] REPOSITORY HNO ID: [id number] Author: Jacinta Olmedo (Rn), RN Service: Care Management Author Type: Registered Nurse Type: Care Mgt Progress Note Filed: 11/15/2017 3:22 PM Note Text: CARE MANAGEMENT PROGRESS NOTE SERVICE DATE: 11/15/2017 SERVICE TIME: 3:20 PM LOS: 21 days Needs Prior to Discharge: Accepting Facility;Bed Availability;Insurance Authorization;Discharge Transportation Per primary team, earliest dc next week Awaiting PMANDR.Melvin Borrero, [facility] (p) [phone] unable to accept. Referal sent to Pe[facility] ISBELL (via [facility] [place] as central number (p) [phone] and f) [phone]) for review at direction of [facility] AKILAH gutiérrez (pt agreeable) IF accepted, Peyman Barker would request pt to receive aphersis in house prior to dc. Primary team informed and will try to accommodate. Per MD, at dc pt will need apheresis q 2 weeks indefinitely and close daily lab montoring of blood status for possible need for transfusion . Current on 2LO2/nc, has home O2 2L 02 via [employer] Matos (p) - updated on dc plan yestereday. CM to continue to follow SIGNATURE: Jacinta Olmedo RN PATIENT NAME: Paloma Cannon DATE: November 15, 2017 TIME: 3:20 PM PAGER/CONTACT #: [phone] NURSING PROG Observed: 11/15/2017 Status: COMPLETED Source: [place] 2:18 PM [facility] REPOSITORY HNO ID: [id number] Author: Zoila Cullen (Rn), RN Service: Nursing Author Type: Registered Nurse Type: Nursing Progress Note Filed: 11/15/2017 2:19 PM Note Text: Nursing Progress Note Patient Name: Paloma Cannon Patient Location: [place] [address] Daily Note: Pt AANDOx3. VSS. Pt c/o back pain, treated per sep. Pt up with two assist and walker. Pt down to cafeteria with and in wheelchair. Skin care protocol in place. Fall/safety precautions in place. This note was completed by: Zoila Cullen, RN PROGRESS Observed: 11/15/2017 Status: COMPLETED Source: [place] 2:04 PM [facility] REPOSITORY HNO ID: [id number] Author: Ros Wayne Service: General Internal Medicine Author Type: Physician Type: Progress Notes Filed: 11/15/2017 10:10 PM Note Text: RAF Terry PROGRESS NOTE For questions regarding this patient today please page [phone] After 5 pm on weekdays and 3pm on weekends and holidays please page transcription manager pager [phone] SERVICE DATE: 11/15/2017 SERVICE TIME: 2:04 PM INTERVAL HISTORY: - No events overnight - BP [phone], HR 70-100, on 2L NC - Uoutput [...] IR emobolization of left L3 artery at [place] on 10/23 IR embolization of left L2 [...] 11/03, 11/13 (heme following); patient is on [id number] (Mondays) schedule outpatient Plan: Holding Cytoxan 75 mg in setting of worsening thrombocytopenia Continue prednisone 60 mg with bactrim ppx Appreciate hematology and recs Plan is to start bivalrudin trial once platelets stabilize and bridge to coumadin - CAPRICE (acute kidney injury) (HCC) CAPRICE on CKD III, 2/2 contrast, now requiring dialysis First HD at [place] on 10/25 with tunneled dialysis catheter placement [...] this morning, access site for embolization at [place], no erythema or induration appreciated on exam, exquisitely TTP Groin study showed no signs of PSA, known AV fistula visualized with retrograde flow, vascular med aware- no further recs 10/28: pain less severe, no physical exam findings Repeat Leg DVT shows no pseudoaneurysm Likely due to nerve compression/RP hematoma causing compressive symtpoms S/p R groin drain placed at [place] on 10/24 s/p L groin drain placed at [facility] during embolization on 10/26 Plan: - Pain management-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 MANAGER BILLING as of transfer to [facility] - Will continue to wean dilaudid [...] November 15, 2017 TIME: 2:04 PM PAGER: [phone] RAF Terry ATTENDING NOTE: Chart reviewed, patient [...] activity Ros Wayne MD FACP Attending, pager [phone] CONSULT Observed: 11/15/2017 Status: COMPLETED Source: [place] 1:07 PM [facility] REPOSITORY HNO ID: [id number] Author: Viraj Starr Service: Physical Medicine AND Rehabilitation Author Type: Physician Type: Consults Filed: 11/15/2017 4:35 PM Note Text: HOSPITAL INITIAL CONSULT: PMANDR SERVICE DATE: 11/15/2017 SERVICE TIME: 415pm REASON FOR CONSULTATION: assessment of rehab service needs Subjective PATIENT'S HOME ADDRESS: [address] [place], [place] [id number] HISTORY: Paloma Cannon is a 27 year old female whose current [facility] admission dates to 10/25/2017. History notes that she was admitted on that date from outside hospital. Ms. Cannon is being seen at the request of Dr. Wayne, the acute hospital physician of record. She carries the rehabilitation diagnosis of debility. 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 She was transferred to [facility] for further stabilization. She underwent urgent Left [...] last 168 hours. BMP: Recent Labs 11/15/17 0601 11/14/17 0426 11/13/17 0804 11/12/17 0518 11/11/17 0335 11/10/17 0336 11/09/17 0549 GLUC 74 79 73* 128* 123* [...] Recent Labs 11/15/17 0601 11/14/17 0426 11/13/17 0804 11/12/17 0518 11/11/17 0335 11/10/17 0336 11/09/17 0549 CA 8.9 8.7 8.9 8.6 8.3* 8.8 8.9 MG 2.1 1.8 2.1 1.8 1.8 1.9 2.0 P 3.9 4.0 3.5 3.3 3.4 3.3 3.8 HEPATIC: No results for input(s): ALKPHOS, ALT, AST, TBILI, LIPASE in the last 168 hours. Impression/Recommendations DIAGNOSIS:debility RECOMMENDATIONS: Patient most likely will be appropriate for snf facility in future (moderate exercise program 1-2 [...] #: NUTRITION Observed: 11/15/2017 Status: COMPLETED Source: [place] 12:28 PM [facility] [place] REPOSITORY O ID: [id number] Author: Anahi Mai (Diet-T) Service: Nutrition Therapy Author Type: Machine Feeder Raw Stock Type: Nutrition Filed: 11/15/2017 12:29 PM Note [...] November 15, 2017 TIME: 12:28 PM PAGER: [phone] PLAN OF CARE Observed: 11/15/2017 Status: COMPLETED Source: [place] 11:48 AM [facility] REPOSITORY HNO ID: [id number] Author: Hodan SanchezDianDianJulia Whitney Service: (none) Author Type: (none) Type: Plan of Care Filed: 11/15/2017 11:48 AM Note Text: Pharmacy Discharge Medication Service: This patient has elected to receive their discharge prescriptions through the [facility] Bedside Prescription Delivery program. The prescriptions are currently being processed. A follow-up note will be entered once the prescriptions have been filled and delivered to the patient. Please contact me with any questions or updates to the patient's discharge medications. Julia Pettit (DianDian) DCT Contact Info: [phone] PLAN OF CARE Observed: 11/15/2017 Status: COMPLETED Source: [place] 11:47 AM [facility] REPOSITORY HNO ID: [id number] Author: Hodan SanchezDianDianJulia Whitney Service: (none) Author Type: (none) Type: Plan of Care Filed: 11/15/2017 11:48 AM Note Text: FIELD CANE SCALE CLERK BEDSIDE DELIVERY SURVEY 1. Patient to use [facility] Bedside Delivery - YES 2. If fax, patient would like us to fax prescriptions to Pharmacy of choice a. Pharmacy: b. Location: c. Phone: 3. Insurance card on file - YES 4. Credit card for payment - N/A No prescriptions yet. Please page [phone] upon discharge. CBC Collected: 11/15/2017 Status: F Source: [place] 6:01 [facility] REPOSITORY TYPE CODE TESTS RESULT OUT [...] MG1, PHOS, BMP #### [facility] [address] [place], [place] [address] MAGNESIUM Collected: 11/15/2017 Status: F Source: [place] 6:01 [facility] REPOSITORY TYPE CODE TESTS RESULT OUT OF REFERENCE UNITS RANGE LAB MG 1.7-2.3 mg/dL Magnesium 2.1 Performed By: #### CBC, MG1, PHOS, BMP #### [facility] [address] [address] [place], [place] [address] PHOSPHORUS Collected: 11/15/2017 Status: F Source: [place] 6:01 [facility] REPOSITORY TYPE CODE TESTS RESULT OUT OF REFERENCE UNITS RANGE LAB PHOS 2.7-4.8 mg/dL Phosphorus 3.9 Performed By: #### CBC, MG1, PHOS, BMP #### [facility] [address] [place], [place] [address] BASIC METABOLIC PANL Collected: 11/15/2017 Status: F Source: [place] 6:01 AM [facility] REPOSITORY TYPE CODE TESTS RESULT OUT OF REFERENCE UNITS RANGE LAB GLU 74-99 mg/dL Glucose 74 Result Comment: The [place] Diabetes Association (ADA) provides guidance for cutoff [...] Standards of Medical Care in Diabetes 2016, [place] Diabetes Association. Diabetes Care. 2016.39(Suppl 1). LAB [...] By: #### CBC, MG1, PHOS, BMP #### [facility] [address] [place], [place] [address] NURSING PROG Observed: 11/14/2017 Status: COMPLETED Source: [place] 6:05 PM [facility] REPOSITORY HNO ID: [id number] Author: Eduardo Yates (Rn), RN Service: Nursing [...] difficulty. This note was completed by: Eduardo Yates, RN CONSULT Observed: 11/14/2017 Status: COMPLETED Source: [place] 4:46 PM [facility] REPOSITORY HNO ID: [id number] Author: Michelle Garcia (Elliott) Service: Physical Medicine AND Rehabilitation Author Type: Nurse Practitioner Type: Consults Filed: 11/14/2017 4:46 PM Note Text: PMANDR consult received today. Chart reviewed. [facility] to [facility] tomorrow. Thank you for the consult. Please call with any questions. Michelle Garcia APRN.[facility] Physical Medicine and Rehabilitation pager [phone] CONSULT PROG Observed: 11/14/2017 Status: COMPLETED Source: [place] 4:33 PM [facility] REPOSITORY HNO ID: [id number] Author: Justina Pollard (Pa) Service: Hematology Author Type: Physician Farm Management Agent Type: Consult Progress Note Filed: 11/14/2017 4:37 [...] IR guided intervention (initially on 10/23 at [facility] and 10/26 here at [facility]. ? # Antiphospholipid antibody syndrome -recent?home [...] November 14, 2017 TIME: 4:33 PM PAGER: [phone] THERAPY NT Observed: 11/14/2017 Status: COMPLETED Source: [place] 4:06 PM [facility] REPOSITORY HNO ID: [id number] Author: Indra Woods (Senior Geologist) Service: Physical Therapy Author Type: Banquet Steward Type: Therapy (PT/OT/Speech/Resp) Filed: 11/14/2017 4:19 PM Note Text: Attestation signed by Brenda Meraz (Pt) at 11/15/2017 7:31 AM I reviewed and agree with the assessment as documented above. SIGNATURE: Brenda Meraz, PT DATE: November 15, 2017 TIME: 7:31 AM Physical Therapy Treatment SERVICE DATE: 11/14/2017 SERVICE TIME: 1510 to 1550 ROOM: [place] [address] Recommended Discharge Disposition: Acute Rehab Justification For [...] 1 to stand pivot to bed from . Patient would benefit from Acute Rehab to [...] Diagnosis: Reduced mobility-other Interventions Provided: Therapeutic Activity (86956);Therapeutic Exercise (35792) Therapeutic Exercise (06853) Treatment Minutes: 15 1 unit Skilled Intervention(s): Patient instructed in and performed seated exercises for 20 reps: ankle pumps, LAQ, marching, hip abduction, heelslides with assist for minimal tactile and verbal cues for pacing and proper technique. Patient required rest breaks between sets due to fatigue. Educated patient in reasoning for each exercise. Patient stated performing supine exercise in bed everyday. Therapeutic Activity (24334) Treatment Minutes: 23 2 units Skilled Intervention(s): [...] just prior to PT. Transfer training from to bed using modified stand pivot with [...] 14, 2017 TIME: 4:06 PM PAGER/CONTACT #: [phone] THERAPY NT Observed: 11/14/2017 Status: COMPLETED Source: [place] 3:33 PM [facility] [place] REPOSITORY HNO ID: [id number] Author: Zahra Burks (Go-L) Service: Occupational Therapy Author Type: Weeder Type: Therapy (PT/OT/Speech/Resp) Filed: 11/14/2017 3:39 PM Note Text: Attestation signed by Yue Uriostegui at 11/14/2017 3:57 PM I reviewed and agree with the documentation corresponding to this therapy visit. SIGNATURE: Yue Uriostegui OTR/L DATE: November 14, 2017 TIME: 3:57 PM Occupational Therapy Treatment SERVICE DATE: 11/14/2017 SERVICE TIME: 1359 to 1446 ROOM: [place] [address] Recommended Discharge Disposition: Acute Rehab Justification For [...] daily living (ADL) Interventions Provided: Therapeutic Exercise (25443);Therapeutic Activity (14453);Self Half-Way Management (46994) Therapeutic Exercise (28953) Treatment Minutes: 17 1 unit Skilled Intervention(s): [...] abd/adduction, chest press, elbow flexion/extension Therapeutic Activity (66439) Treatment Minutes: 15 1 unit Skilled Intervention(s): Instructed patient in supine to sit pushing with upper extremities to sit up Instructed patient in sit to supine using safe, effective technique Educated on acute rehab OT treatments. Self Half-Way Management (41242) Treatment Minutes: 15 1 unit Skilled Intervention(s): Instructed pt on safe toilet transfer to/from [facility] using proper hand placement for safety. Provided [...] CODE: OT 6 Clicks Score: 17 (11/14/17 135) Self Care Current Status (G8987): CK (11/14/17 135) Self Care Goal Status (G8988): CJ (11/14/17 135) Based on clinical assessment and the score [...] complete details for this therapy evaluation/treatment. SIGNATURE: MAICO Perez PATIENT NAME: Paloma Cannon DATE: November 14, 2017 TIME: 3:34 PM PAGER: [phone] CBC Collected: 11/14/2017 Status: F Source: [place] 1:15 PM [facility] REPOSIT[facility] TYPE CODE [...] By: #### CBC #### [facility] [address] [place] [address] CASE MANAGEM Observed: 11/14/2017 Status: COMPLETED Source: [place] 11:33 AM [facility] REPOSITORY HNO ID: [id number] Author: Jacinta Olmedo (Rn), RN Service: Care Management Author Type: Registered Nurse Type: Care Mgt Progress Note Filed: 11/14/2017 11:38 AM Note Text: CARE MANAGEMENT PROGRESS NOTE SERVICE DATE: 11/14/2017 SERVICE TIME: 11:34 AM LOS: 20 days Needs Prior to Discharge: Accepting Facility;Bed Availability;Insurance Authorization;Discharge Transportation Earliest dc next week Awaiting PMANDR. Melvin Borrero, [facility] (p) [phone] [phone] unable to accept. Referal sent to [facility] ISBELL for review at direction of [facility] AR marla (pt agreeable) If accepted, Peyman jin may request pt to receive apheresis in house prior to dc. Per , at dc pt will need apheresis q 2 weeks indefinitely and close daily lab montoring of blood status for possible need for transfusion . Current on 2LO2/nc, has home O2 2L 02 via [facility]. Nikolaymars MAZA is Elsa Matos (p) - updated on dc plan today. CM to continue to follow SIGNATURE: Jacinta Olmedo RN PATIENT NAME: Paloma Cannon DATE: November 14, 2017 TIME: 11:34 AM PAGER/CONTACT #: [phone] THERAPY NT Observed: 11/14/2017 Status: COMPLETED Source: [place] 11:17 AM [facility] REPOSITORY HNO ID: [id number] Author: Indra Woods (Donya) Service: Physical Therapy Author Type: Banquet Steward Type: Therapy (PT/OT/Speech/Resp) Filed: 11/14/2017 11:23 AM Note Text: Attestation signed by Brenda Meraz (Pt) at 11/14/2017 12:49 PM I reviewed and agree with the assessment as documented above. SIGNATURE: Brenda Meraz, PT DATE: November 14, 2017 TIME: 12:48 PM PHYSICAL THERAPY MISSED VISIT SERVICE DATE: 11/14/2017 SERVICE TIME: 1116 to 1116 ROOM: [place] [address] Attempted Treatment. Patient not seen due to getting blood platelets in 10 mins. Will attempts again as able. SIGNATURE: Indra Woods PTA PATIENT NAME: Paloma Cannon DATE: November 14, 2017 TIME: 11:17 AM PAGER/CONTACT #: [phone] CONSULT Observed: 11/14/2017 Status: COMPLETED Source: [place] 11:05 AM [facility] REPOSITORY HNO ID: [id number] Author: Alicia Carmen (Poultry Farm Supervisor) Service: Nursing Author Type: Nurse Specialist Type: Consults Filed: 11/14/2017 2:16 PM Note Text: Paloma Cannon [id number] Reason for Consult: Routine CLABSI Prevention Rounding [...] Hand Hygiene, dressing integrity Rounding performed with: Eduardo RN, Shreya Whitehead, LIZET, Darrell Ewing, Special Education Associate, AND SUYAPA Greene, MSN, COMPOSING MACHINE OPERATOR-PARALEGAL SUPERVISOR [phone] 10 Minutes Thank you for including me in the care of this patient and please feel free to re-consult me if necessary. PROGRESS Observed: 11/14/2017 Status: COMPLETED Source: [place] 6:00 AM [facility] REPOSITORY HNO ID: [id number] Author: Ros Wayne Service: General Internal Medicine Author Type: Physician Type: Progress Notes Filed: 11/14/2017 5:31 PM Note Text: RAF Terry PROGRESS NOTE For questions regarding this patient today please page [phone] After 5 pm on weekdays and 3pm on weekends and holidays please page transcription manager pager [phone] SERVICE DATE: 11/14/2017 SERVICE TIME: 6:00 AM [...] IR emobolization of left L3 artery at [place] on 10/23 IR embolization of left L2 [...] contrast, now requiring dialysis First HD at [place] on 10/25 with tunneled dialysis catheter placement [...] this morning, access site for embolization at [place], no erythema or induration appreciated on exam, exquisitely TTP Groin study showed no signs of PSA, known AV fistula visualized with retrograde flow, vascular med aware- no further recs 10/28: pain less severe, no physical exam findings Repeat Leg DVT shows no pseudoaneurysm Likely due to nerve compression/RP hematoma causing compressive symtpoms S/p R groin drain placed at [place] on 10/24 s/p L groin drain placed at [facility] during embolization on 10/26 Plan: - Pain management-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 MANAGER BILLING as of transfer to [facility] - Will continue to wean dilaudid [...] November 14, 2017 TIME: 6:00 AM PAGER: [phone] RAF Terry ATTENDING NOTE: Chart reviewed, patient [...] bridge Ros Wayne MD FACP Attending, pager [phone] TYPE AND SCREEN Collected: 11/14/2017 Status: F Source: [place] 4:30 AM [facility] REPOSITORY TYPE CODE TESTS RESULT OUT OF REFERENCE UNITS RANGE LAB %ABR B ABO/RH(D) POSITIVE LAB % Antibody POS Screen Performed By: #### TSCR #### [facility] [address] [place] [address] CBC Collected: 11/14/2017 Status: F Source: [place] 4:26 AM [facility] REPOSITORY TYPE CODE TESTS RESULT OUT OF [...] MG1, PHOS, BMP #### [facility] [address] [place], [place] [address] MAGNESIUM Collected: 11/14/2017 Status: F Source: [place] 4:26 AM [facility] REPOSITORY TYPE CODE TESTS RESULT OUT OF REFERENCE UNITS RANGE LAB MG 1.7-2.3 mg/dL Magnesium 1.8 Performed By: #### CBC, MG1, PHOS, BMP #### [facility] [address] [place] [id number] PHOSPHORUS Collected: 11/14/2017 Status: F Source: [place] 4:26 AM [facility] REPOSITORY TYPE CODE TESTS RESULT OUT OF REFERENCE UNITS RANGE LAB PHOS 2.7-4.8 mg/dL Phosphorus 4.0 Performed By: #### CBC, MG1, PHOS, BMP #### [facility] [address] [place] [id number] BASIC METABOLIC PANL Collected: 11/14/2017 Status: F Source: [place] 4:26 AM [facility] REPOSITORY TYPE CODE TESTS RESULT OUT OF REFERENCE UNITS RANGE LAB GLU 74-99 mg/dL Glucose 79 Result Comment: The [place] Diabetes Association (ADA) provides guidance for cutoff [...] Standards of Medical Care in Diabetes 2016, [place] Diabetes Association. Diabetes Care. 2016.39(Suppl 1). LAB [...] By: #### CBC, MG1, PHOS, BMP #### [facility] [address] [place], [place] [address] NURSING PROG Observed: 11/14/2017 Status: COMPLETED Source: [place] 2:54 AM [facility] REPOSITORY HNO ID: [id number] Author: Mark Dias (Rn), RN Service: Nursing Author Type: Registered Nurse Type: Nursing Progress Note Filed: 11/14/2017 7:55 AM Note Text: Nursing Progress Note Patient Name: Paloma Cannon Patient Location: [place] [address]- Daily Note: 2121 Medicated for c/o pain, [...] ALLIED HEALTH Observed: 11/13/2017 Status: COMPLETED Source: [place] 3:03 PM [facility] REPOSITORY HNO ID: [id number] Author: Dary Banks (Rn), RN Service: Wound/Ostomy [...] nursing staff. Pouching System Removed: Per last [facility] nurses note - 1. Filled in pannus crease at 3 and 9 o'clock with Stomahesive paste, then, applied Stomahesive wedges x2 each side. Caulked seams with paste. 2. Applied 1/4 piece Hollihesive washer (inner radial slits) direclty onto skin around site. Caulked inner aperture with Stomahesive paste. 3. Kyle Premier Urostomy pouch with a [place] Adapt oval convex ring #[id number] around aperture and Stomahesive paste around aperture [...] excess powder. Pouching System: Applied: Coloplast SenSura [place] Flex flat cut to fit Barrier (38 to 1 7/8) (#35945) (red) opening cut off center, center opening covered with Hollihesive barrier, and Coloplast SenSura [place] Flex High Output transparent filtered pouch (#37729) (red). Pouch connected to gravity drainage system with ConvaTec marcus adapter and Hy tape. Wear Time Goal: 3-5 days. Comments: Skin is very fragile and thin with scattered bruising due to chronic steroid treatment. Supplies Provided: 2 flanges and 2 high output pouches, 8 remover wipes ? Time Increment: 1 hour ? Dary JOHNSONN RN CWOCN PROCEDURE Observed: 11/13/2017 Status: COMPLETED Source: [place] 1:24 PM [facility] REPOSITORY HNO ID: [id number] Author: Lisseth Claudio MD Service: Apheresis Author [...] Completed by Apheresis Nurse: Angella Ortiz RN [facility] [place] BY [facility] STAFF PHYSICIAN NOTE OF PERSONAL INVOLVEMENT IN [...] MD November 13, 2017 4:45 PM Pager: [phone] CONSULT PROG Observed: 11/13/2017 Status: COMPLETED Source: [place] 12:44 PM [facility] REPOSITORY HNO ID: [id number] Author: Justina Pollard (Cy) Service: Hematology Author Type: Physician Farm Management Agent Type: Consult Progress Note Filed: 11/13/2017 3:14 [...] IR guided intervention (initially on 10/23 at [facility] and 10/26 here at [facility]. ? # Antiphospholipid antibody syndrome -recent [...] November 13, 2017 TIME: 12:45 PM PAGER: [phone] PROGRESS Observed: 11/13/2017 Status: COMPLETED Source: [place] 12:11 PM [facility] REPOSITORY HNO ID: [id number] Author: Ros Wayne Service: General Internal Medicine Author Type: Physician Type: Progress Notes Filed: 11/13/2017 2:46 PM Note Text: RAF Terry PROGRESS NOTE For questions regarding this patient today please page [phone] After 5 pm on weekdays and 3pm on weekends and holidays please page transcription manager pager [phone] SERVICE DATE: 11/13/2017 SERVICE TIME: 12:12 PM [...] ?F) Oral 91 18 96 % - 11/12/171955 149/76 36.8 ?C (98.3 ?F) Oral 81 [...] IR emobolization of left L3 artery at [place] on 10/23 IR embolization of left L2 [...] contrast, now requiring dialysis First HD at [place] on 10/25 with tunneled dialysis catheter placement [...] this morning, access site for embolization at [place], no erythema or induration appreciated on exam, exquisitely TTP Groin study showed no signs of PSA, known AV fistula visualized with retrograde flow, vascular med aware- no further recs 10/28: pain less severe, no physical exam findings Repeat Leg DVT shows no pseudoaneurysm Likely due to nerve compression/RP hematoma causing compressive symtpoms S/p R groin drain placed at [place] on 10/24 s/p L groin drain placed at [facility] during embolization on 10/26 Plan: - Pain management-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 MANAGER BILLING as of transfer to [facility] - Will continue to wean dilaudid as pt tolerates, currently on Dilaudid 0.2 mg q4h PRN for pain, oxycodone PO PRN and gabapentin - IR consult for drain evaluation and removal on 11/05 MAINTENANCE: VTE PROPHYLAXIS: IPCD NEED FOR ZUNIGA- Yes 10/23/17 LINES: Double lumen dialysis catheter 10/25/17 Dispo- [facility] rehabilitation good hope This note is not final until staffed by the attending physician and authenticated by responsible provider. SIGNATURE: Olga Reyez MD PATIENT NAME: Paloma Cannon DATE: November 13, 2017 TIME: 12:12 PM PAGER: [phone] RAF Terry ATTENDING NOTE: Chart reviewed, patient [...] bridge Ros Wayne MD FACP Attending, pager [phone] THERAPY NT Observed: 11/13/2017 Status: COMPLETED Source: [place] 10:52 AM [facility] REPOSITORY [facility] ID: [id number] Author: Indra Woods (Senior Geologist) Service: Physical Therapy Author Type: Banquet Steward Type: Therapy (PT/OT/Speech/Resp) Filed: 11/13/2017 11:04 AM Note Text: Attestation signed by Brenda Meraz (Pt) at 11/13/2017 1:01 PM I reviewed and agree with the assessment as documented above. SIGNATURE: Brenda Meraz, PT DATE: November 13, 2017 TIME: 1:00 PM Physical Therapy Treatment SERVICE DATE: 11/13/2017 SERVICE TIME: 932 to 1042 ROOM: H080[facility] Recommended Discharge Disposition: Acute Rehab Justification For [...] (generalized);Unsteadiness on feet Interventions Provided: Gait Training (03502);Therapeutic Activity (34756);Therapeutic Exercise (53695) Therapeutic Exercise (46101) Treatment Minutes: 23 2 units Skilled Intervention(s): Patient instructed in and performed supine exercises for 20?rep: AP, ?QS for 3 second hold, heelslides, SAQ, hip abduction; seated: 20 reps: LAQ, marching, hip abduction?with minimal?verbal and tactile cues for pacing and proper technique. Patient required AAROM for heelslides, hip abduction and marching. Educated patient in reasoning for each exercise. ? Therapeutic Activity (61650) Treatment Minutes: 28 2 units Skilled Intervention(s): [...] for lines and tubes management. Gait Training (67430) Treatment Minutes: 19 1 unit Skilled Intervention(s): [...] 13, 2017 TIME: 10:52 AM PAGER/CONTACT #: [phone] CBC Collected: 11/13/2017 Status: F Source: [place] 8:04 AM [facility] REPOSITORY TYPE CODE TESTS RESULT OUT OF [...] MG1, PHOS, BMP #### [facility] [place], [place] [address] MAGNESIUM Collected: 11/13/2017 Status: F Source: [place] 8:04 AM [facility] REPOSITORY TYPE CODE TESTS RESULT OUT OF REFERENCE UNITS RANGE LAB MG 1.7-2.3 mg/dL Magnesium 2.1 Result Comment: Results may be falsely increased due to interference by hemolysis. Suggest reorder as clinically indicated. Performed By: #### CBC, MG1, PHOS, BMP #### [facility] [address] [place], [place] [address] PHOSPHORUS Collected: 11/13/2017 Status: F Source: [place] 8:04 AM [facility] REPOSITORY TYPE CODE TESTS RESULT OUT OF REFERENCE UNITS RANGE LAB PHOS 2.7-4.8 mg/dL Phosphorus 3.5 Result Comment: Results may be falsely increased due to interference by hemolysis. Suggest reorder as clinically indicated. Performed By: #### CBC, MG1, PHOS, BMP #### [facility] [address] [place], [place] [address] BASIC METABOLIC PANL Collected: 11/13/2017 Status: F Source: [place] 8:04 AM [facility] REPOSITORY TYPE CODE TESTS RESULT OUT OF REFERENCE UNITS RANGE LAB GLU 74-99 mg/dL Low Glucose 73 Result Comment: The [place] Diabetes Association (ADA) provides guidance for cutoff [...] Standards of Medical Care in Diabetes 2016, [place] Diabetes Association. Diabetes Care. 2016.39(Suppl 1). LAB [...] has been calibrated to be traceable to IDVT. An eGFR <60 mL/min/1.73m2 for >3 months is consistent with chronic kidney disease. Refer to KDOQI guidelines for clinical interpretation. In patients with unstable renal function, e.g. those with acute kidney injury, the eGFR may not accurately reflect actual GFR. Performed By: #### CBC, MG1, PHOS, BMP #### [facility] [address] [place], [place] [address] NURSING PROG Observed: 11/12/2017 Status: COMPLETED Source: [place] 8:27 PM [facility] REPOSITORY [facility] ID: [id number] Author: Mark Dias (Rn), RN Service: Nursing Author Type: Registered Nurse Type: Nursing Progress Note Filed: 11/13/2017 8:18 AM Note Text: Nursing Progress Note Patient Name: Paloma Cannon Patient Location: [facility] 015/H080-16 Daily Note: 2026 Medicated for c/o pain, see MAR. Was reassured. Safety measures continued. Siderails up x 2 to assist w/ bed mobility and fr support. Bed in lowest possible position, locked. Call light placed within pt's reach. Was reassured. 2230 Medicated for c/o pain, see MAR. 06 Medicated Again for pain, see MAR. This note was completed by: Mark Dias RN PROGRESS Observed: 11/12/2017 Status: COMPLETED Source: [place] 7:47 PM [facility] REPOSITORY [facility] ID: [id number] Author: Edel RomanRn), RN Service: Nursing Author Type: Registered Nurse Type: Progress Notes Filed: 11/12/2017 7:48 PM Note Text: Nursing Progress Note Vital Clinical Research Scientist Assessment Note Patient Name: Paloma Cannon Patient Location: [facility] 015/H080-16 Patient Vitals in the past 4 [...] RN CBC Collected: 11/12/2017 Status: F Source: [place] 5:04 PM [facility] REPOSITORY TYPE CODE TESTS RESULT [...] By: #### CBC #### [facility] [address] [place], [place] [address] ALLIED HEALTH Observed: 11/12/2017 Status: COMPLETED Source: [place] 2:52 PM [facility] REPOSITORY [facility] ID: [id number] Author: Luci Hanson (Rn), RN Service: Wound/Ostomy [...] per nursing staff Current pouching system: Removed- [place] Hollihesive wedge at 3 and 9 o'clock; 2x2 Hollihesive washer, cut to 7/8 x 1 (inner radial slits), caulk seams with stomahesive paste, [place] Premier Urostomy Pouch (outer radial slits), Adapt Oval Convex Ring (94079 small), connected to gravity drainage, mefix tape. [...] with a Kyle Adapt oval convex ring #[id number] around aperture and Stomahesive paste around aperture of convex ring. 4. Mefix at 3 and 9 o'clock. Made a slit at area where left groin crease is. Wear Time: 3-7 days Time Increment: 45 minutes Luci STEVE, RN, CWOCN CITRATED PLT COUNT Collected: 11/12/2017 Status: F Source: [place] 8:52 AM [facility] REPOSITORY TYPE CODE TESTS RESULT OUT OF REFERENCE UNITS RANGE LAB PLTCIT 150-400 K/uL Low Citrated Plt 22 Count Result Comment: Result checked and verified No clot detected. Reviewed Sodium Citrate Sample. Performed By: #### CITPLT #### [facility] [address] [place], [place] [address] PROGRESS Observed: 11/12/2017 Status: COMPLETED Source: [place] 7:03 AM [facility] REPOSITORY [facility] ID: [id number] Author: Edson Mohr Service: General Internal Medicine Author Type: Physician Type: Progress Notes Filed: 11/12/2017 2:59 PM Note Text: DEPARTMENT OF INTERNAL MEDICINE: PROGRESS NOTE PRIMARY TEAM: RAF Terry Weekdays 7 am to 5 pm/Weekend 7 am to 3 pm: Page [phone] (Dayton Acuna) Weekdays 5 pm to 7 am/Weekend 3 pm to 7 am: Pattern Cutter Pager [phone] PATIENT NAME: Paloma Cannon BRIEF PLAN FOR [...] IR emobolization of left L3 artery at [place] on 10/23 IR embolization of left L2 [...] contrast, now requiring dialysis First HD at [place] on 10/25 with tunneled dialysis catheter placement [...] this morning, access site for embolization at [place], no erythema or induration appreciated on exam, exquisitely TTP Groin study showed no signs of PSA, known AV fistula visualized with retrograde flow, vascular med aware- no further recs 10/28: pain less severe, no physical exam findings Repeat Leg DVT shows no pseudoaneurysm Likely due to nerve compression/RP hematoma causing compressive symtpoms S/p R groin bag placed at [place] on 4/17 s/p L groin bag placed at [facility] during embolization on 10/26 Plan: - Pain management-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 MANAGER BILLING as of transfer to [facility] - Will continue to wean dilaudid as pt tolerates, currently kept her on Dilaudid 0.2 mg q4h PRN for pain Lines: Apheresis Catheter: 10/25/2017 Zuniga Catheter: Present 10/23/2017 SIGNATURE: Dayton Acuna MD, PGY2 PAGER: [phone] DATE of SERVICE: November 12, 2017 TIME of SERVICE: 7:03 AM This note is not final until signed by a Staff Physician [facility] [place] STAFF PHYSICIAN NOTE OF PERSONAL INVOLVEMENT IN [...] by PE/DVT, DAH , HIT was on shelter coumadin, cytoxan , prednisone and pheresis. Recent admission for DAH. Discharged on ?fondaparinux?7.5mg daily? 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 Clinically stable Persistent thrombocytopenia despite transfusion stopping cytoxan and a dose of Nplate. Hgb stable, ? PLAN:?as delineated above Transfuse platelets Follow platelet count Agree with switching bactrim to pentamidine for PJP prophylaxis Hematology planing pheresis session to ria Continue to hold anticoagulation for now until ?thrombocytopenia improves and stable Edson Mohr MD November 12, 2017 2:59 PM CBC Collected: 11/12/2017 Status: F Source: [place] 5:18 AM [facility] [place] REPOSITORY TYPE CODE TESTS RESULT OUT OF [...] MG1, PHOS, BMP #### [facility] [address] [place] [id number] MAGNESIUM Collected: 11/12/2017 Status: F Source: [place] 5:18 AM [facility] REPOSITORY TYPE CODE TESTS RESULT OUT OF REFERENCE UNITS RANGE LAB MG 1.7-2.3 mg/dL Magnesium 1.8 Performed By: #### CBC, MG1, PHOS, BMP #### [facility] [address] [place] [address] PHOSPHORUS Collected: 11/12/2017 Status: F Source: [place] 5:18 AM [facility] REPOSITORY TYPE CODE TESTS RESULT OUT OF REFERENCE UNITS RANGE LAB PHOS 2.7-4.8 mg/dL Phosphorus 3.3 Performed By: #### CBC, MG1, PHOS, BMP #### [facility] [address] [place] [id number] BASIC METABOLIC PANL Collected: 11/12/2017 Status: F Source: [place] 5:18 AM [facility] REPOSITORY TYPE CODE TESTS RESULT OUT OF REFERENCE UNITS RANGE LAB GLU 74-99 mg/dL High Glucose 128 Result Comment: The [place] Diabetes Association (ADA) provides guidance for cutoff [...] Standards of Medical Care in Diabetes 2016, [place] Diabetes Association. Diabetes Care. 2016.39(Suppl 1). LAB [...] MG1, PHOS, BMP #### [facility] [address] [id number] CONSULT PROG Observed: 11/11/2017 Status: COMPLETED Source: [place] 7:48 PM [facility] [place] REPOSITORY [facility] ID: [id number] Author: Luz Maria Wolfe) Service: Hematology/Oncology Author [...] IR guided intervention (initially on 10/23 at [facility] and 10/26 here at [facility]. ? # Antiphospholipid antibody syndrome -recent [...] PM CBC Collected: 11/11/2017 Status: F Source: [place] 3:17 PM [facility] REPOSITORY TYPE CODE TESTS RESULT OUT OF [...] By: #### CBC #### [facility] [address] [place], [place] [address] TYPE AND SCREEN Collected: 11/11/2017 Status: F Source: [place] 9:47 AM [facility] REPOSITORY TYPE CODE TESTS RESULT OUT OF REFERENCE UNITS RANGE LAB %ABR B ABO/RH(D) POSITIVE LAB % Antibody POS Screen Performed By: #### TSCR #### [facility] [address] [place] [id number] PROGRESS Observed: 11/11/2017 Status: COMPLETED Source: [place] 6:53 AM [facility] REPOSITORY [facility] ID: [id number] Author: Edson Mohr Service: General Internal Medicine Author Type: Physician Type: Progress Notes Filed: 11/11/2017 12:07 PM Note Text: RAF Terry PROGRESS NOTE For questions regarding this patient today please page [phone] After 5 pm on weekdays and 3pm on weekends and holidays please page transcription manager pager [phone] SERVICE DATE: 11/11/2017 SERVICE TIME: 6:53 AM [...] tablet (BACTRIM,SEPTRA) 2 tablet ORAL/FEEDING TUBE MO-WE-FR hydrocortisone sodium succinate (PF) 100 mg injection [...] IR emobolization of left L3 artery at [place] on 10/23 IR embolization of left L2 [...] contrast, now requiring dialysis First HD at [place] on 10/25 with tunneled dialysis catheter placement [...] this morning, access site for embolization at [place], no erythema or induration appreciated on exam, exquisitely TTP Groin study showed no signs of PSA, known AV fistula visualized with retrograde flow, vascular med aware- no further recs 10/28: pain less severe, no physical exam findings Repeat Leg DVT shows no pseudoaneurysm Likely due to nerve compression/RP hematoma causing compressive symtpoms S/p R groin drain placed at [place] on 10/24 s/p L groin drain placed at [facility] during embolization on 10/26 Plan: - Pain management-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 MANAGER BILLING as of transfer to [facility] - Will continue to wean dilaudid as pt tolerates, currently kept her on Dilaudid 0.4 mg q3h PRN for pain - IR consult for drain evaluation and removal on 11/05 MAINTENANCE: VTE PROPHYLAXIS: IPCD NEED FOR ZUNIGA- Yes LINES: Double lumen dialysis catheter [facility] rehabilitation good hope This note is not final until staffed by the attending physician and authenticated by responsible provider. SIGNATURE: Olga Reyez MD PATIENT NAME: Paloma Cannon DATE: November 11, 2017 TIME: 6:53 AM PAGER: [phone] IM STAFF ADDENDUM -Raf A TEAM Patient seen and evaluated this a.m.. [...] PM CBC Collected: 11/11/2017 Status: F Source: [place] 3:35 AM [facility] REPOSITORY TYPE CODE TESTS RESULT OUT OF [...] MG1, PHOS, BMP #### [facility] [address] [place], [place] [address] MAGNESIUM Collected: 11/11/2017 Status: F Source: [place] 3:35 AM [facility] REPOSITORY TYPE CODE TESTS RESULT OUT OF REFERENCE UNITS RANGE LAB MG 1.7-2.3 mg/dL Magnesium 1.8 Performed By: #### CBC, MG1, PHOS, BMP #### [facility] [address], [place] [id number] PHOSPHORUS Collected: 11/11/2017 Status: F Source: [place] 3:35 AM [facility] REPOSITORY TYPE CODE TESTS RESULT OUT OF REFERENCE UNITS RANGE LAB PHOS 2.7-4.8 mg/dL Phosphorus 3.4 Performed By: #### CBC, MG1, PHOS, BMP #### [facility] [address] [place], [place] [address] BASIC METABOLIC PANL Collected: 11/11/2017 Status: F Source: [place] 3:35 [facility] REPOSITORY TYPE CODE TESTS RESULT OUT OF REFERENCE UNITS RANGE LAB GLU 74-99 mg/dL High Glucose 123 Result Comment: The [place] Diabetes Association (ADA) provides guidance for cutoff [...] Standards of Medical Care in Diabetes 2016, [place] Diabetes Association. Diabetes Care. 2016.39(Suppl 1). LAB [...] MG1, PHOS, BMP #### [facility] [address] [place] [id number] CONSULT PROG Observed: 11/10/2017 Status: COMPLETED Source: [place] 6:44 PM [facility] REPOSITORY [facility] ID: [id number] Author: Jefferson Willett (Durga) Service: Hematology/Oncology Author [...] IR guided intervention (initially on 10/23 at [facility] and 10/26 here at [facility]. ? # Antiphospholipid antibody syndrome -Current [...] NURSING PROG Observed: 11/10/2017 Status: COMPLETED Source: [place] 6:40 PM [facility] REPOSITORY [facility] ID: [id number] Author: Grace Deal (Rn), RN Service: Nursing [...] maintained. PROGRESS Observed: 11/10/2017 Status: COMPLETED Source: [place] 4:06 PM [facility] REPOSITORY [facility] ID: [id number] Author: Catherine Oh (Durga)MD Service: Nephrology Author [...] Oh MD Fellow Nephrology and Hypertension Pager: [phone] November 10, 2017 4:06 PM THERAPY NT Observed: 11/10/2017 Status: COMPLETED Source: [place] 3:36 PM [facility] REPOSITORY [facility] ID: [id number] Author: Zahra Burks (Go-L) Service: Occupational Therapy Author Type: Weeder Type: Therapy (PT/OT/Speech/Resp) Filed: 11/10/2017 3:40 PM Note Text: Occupational Therapy Treatment SERVICE DATE: 11/10/2017 SERVICE TIME: 1450 to 1516 ROOM: [place] [address] Recommended Discharge Disposition: Acute Rehab Justification For [...] daily living (ADL) Interventions Provided: Therapeutic Exercise (39316);Therapeutic Activity (96693) Therapeutic Exercise (15924) Treatment Minutes: 16 1 unit Skilled Intervention(s): [...] rolls, D1 flexion/extension, D2 flexion/extension. Therapeutic Activity (58274) Treatment Minutes: 10 1 unit Skilled Intervention(s): [...] complete details for this therapy evaluation/treatment. SIGNATURE: MAICO Perez PATIENT NAME: Paloma Cannon DATE: November 10, 2017 TIME: 3:36 PM PAGER: [phone] XR CHEST 1V FRONTAL Observed: 11/10/2017 Status: F Source: [facility] 12:26 PM [facility] REPOSITORY * * *Final Report* * * [...] pneumothorax identified. Cardiomediastinal silhouette: Stable cardiomediastinal silhouette. Pie Topper: MURTAZA Transcribe Date/Time: Nov 10 2017 2:02P Dictated by : ELSA SHIN MD This examination was interpreted and the report reviewed and electronically signed by: ELSA SHIN MD on Nov 10 2017 2:05PM EST [id number] THERAPY NT Observed: 11/10/2017 Status: COMPLETED Source: [place] 11:52 AM [facility] REPOSITORY [facility] ID: [id number] Author: Indra Woods (Senior Geologist) Service: Physical Therapy Author Type: Banquet Steward Type: Therapy (PT/OT/Speech/Resp) Filed: 11/10/2017 12:07 PM Note Text: Attestation signed by Brenda Meraz (Pt) at 11/10/2017 1:03 PM I reviewed and agree with the assessment as documented above. SIGNATURE: Brenda Meraz, PT DATE: November 10, 2017 TIME: 1:03 PM Physical Therapy Treatment SERVICE DATE: 11/10/2017 SERVICE TIME: 1023 to 1143 ROOM: [place] [address] Recommended Discharge Disposition: Acute Rehab Justification For [...] (generalized);Unsteadiness on feet Interventions Provided: Gait Training (93369);Therapeutic Activity (53862);Therapeutic Exercise (71930) Therapeutic Exercise (41612) Treatment Minutes: 25 2 units Skilled Intervention(s): Patient instructed in and performed supine exercises for 20 rep: AP, heelslides, SAQ, hip abduction; seated: 20 reps: AP and circles, LAQ, 10 reps: marching, hip abduction with minimal verbal and tactile cues for pacing and proper technique. Educated patient in reasoning for each exercise. Patient stated doing heel cord stretching with sheet. Therapeutic Activity (93752) Treatment Minutes: 15 1 unit Skilled Intervention(s): [...] stand for transfer with walker Gait Training (81395) Treatment Minutes: 30 2 units Skilled Intervention(s): [...] Curb Step Car Transfer General Gait Deviations: Dlemy decreased;Lateral sway increased;Step length decreased;Wide base of [...] 10, 2017 TIME: 11:53 AM PAGER/CONTACT #: [phone] CASE MANAGEM Observed: 11/10/2017 Status: COMPLETED Source: [place] 9:49 AM [facility] REPOSITORY [facility] ID: [id number] Author: Jacinta Olmedo (Rn), RN Service: Care Management Author Type: Registered Nurse Type: Care Mgt Progress Note Filed: 11/10/2017 1:51 PM Note Text: CARE MANAGEMENT PROGRESS NOTE SERVICE DATE: 11/10/2017 SERVICE TIME: 9:49 AM LOS: 16 days Needs Prior to Discharge: Accepting Facility;Insurance Authorization;Discharge Transportation Referal info manually faxed to [facility]- attn. Do f) [phone] for review (pt first choice as it is very close to home) [facility] declines d/t pt complexity and accepting only short term patients. Per [facility] Marla Chaparro (p) [phone] [facility] may be able to accept. She [...] 10, 2017 TIME: 9:49 AM PAGER/CONTACT #: [phone] PROGRESS Observed: 11/10/2017 Status: COMPLETED Source: [place] 6:39 AM [facility] REPOSITORY O ID: [id number] Author: Edson Mohr Service: General Internal Medicine Author Type: Physician Type: Progress Notes Filed: 11/10/2017 1:37 PM Note Text: DEPARTMENT OF INTERNAL MEDICINE: PROGRESS NOTE PRIMARY TEAM: RAF Terry Weekdays 7 am to 5 pm/Weekend 7 am to 3 pm: Page [phone] (Dayton Acuna) Weekdays 5 pm to 7 am/Weekend 3 pm to 7 am: Pattern Cutter Pager [phone] PATIENT NAME: Paloma Cannon BRIEF PLAN FOR [...] IR emobolization of left L3 artery at [place] on 10/23 IR embolization of left L2 [...] contrast, now requiring dialysis First HD at [place] on 10/25 with tunneled dialysis catheter placement [...] this morning, access site for embolization at [place], no erythema or induration appreciated on exam, exquisitely TTP Groin study showed no signs of PSA, known AV fistula visualized with retrograde flow, vascular med aware- no further recs 10/28: pain less severe, no physical exam findings Repeat Leg DVT shows no pseudoaneurysm Likely due to nerve compression/RP hematoma causing compressive symtpoms S/p R groin bag placed at [place] on 10/24 s/p L groin bag placed at [facility] during embolization on 10/26 Plan: - Pain management-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 MANAGER BILLING as of transfer to [facility] - Will continue to wean dilaudid as pt tolerates, currently kept her on Dilaudid 0.4 mg q4h PRN for pain ? SIGNATURE: Dayton Acuna MD, PGY2 PAGER: [phone] DATE of SERVICE: November 10, 2017 TIME of SERVICE: 6:39 PM This note is not final until signed by a Staff Physician [facility] [place] STAFF PHYSICIAN NOTE OF PERSONAL INVOLVEMENT IN [...] by PE/DVT, DAH , HIT was on shelter coumadin, cytoxan , prednisone and pheresis. Recent admission for DAH. Discharged on ?fondaparinux?7.5mg daily? 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 requiring ASPHALT ROLLER PERSON , volume overload, thrombocytopenia, persistent anemia ? [...] ? CBC Collected: 11/10/2017 Status: F Source: [place] 3:36 AM [facility] REPOSITORY TYPE CODE TESTS RESULT [...] MG1, PHOS, BMP #### [facility] [address] [place], [place] [id number] MAGNESIUM Collected: 11/10/2017 Status: F Source: [place] 3:36 AM [facility] REPOSITORY TYPE CODE TESTS RESULT OUT OF REFERENCE UNITS RANGE LAB MG 1.7-2.3 mg/dL Magnesium 1.9 Performed By: #### CBC, MG1, PHOS, BMP #### [place] [address] PHOSPHORUS Collected: 11/10/2017 Status: F Source: [place] 3:36 AM [facility] REPOSITORY TYPE CODE TESTS RESULT OUT OF REFERENCE UNITS RANGE LAB PHOS 2.7-4.8 mg/dL Phosphorus 3.3 Performed By: #### CBC, MG1, PHOS, BMP #### [facility] [address] [id number] BASIC METABOLIC PANL Collected: 11/10/2017 Status: F Source: [place] 3:36 AM [facility] REPOSITORY TYPE CODE TESTS RESULT OUT OF REFERENCE UNITS RANGE LAB GLU 74-99 mg/dL Glucose 91 Result Comment: The [place] Diabetes Association (ADA) provides guidance for cutoff [...] Standards of Medical Care in Diabetes 2016, [place] Diabetes Association. Diabetes Care. 2016.39(Suppl 1). LAB [...] MG1, PHOS, BMP #### [facility] [address] [place], [place] [address] CONSULT PROG Observed: 11/09/2017 Status: COMPLETED Source: [place] 4:35 PM [facility] REPOSITORY HNO ID: [id number] Author: Justina Pollard (Cy) Service: Hematology Author Type: Physician Farm Management Agent Type: Consult Progress Note Filed: 11/09/2017 4:45 [...] IR guided intervention (initially on 10/23 at [facility] and 10/26 here at [facility]. ? # Antiphospholipid antibody syndrome -Current [...] November 09, 2017 TIME: 4:35 PM PAGER: [phone] THERAPY NT Observed: 11/09/2017 Status: COMPLETED Source: [place] 1:37 PM [facility] REPOSITORY HNO ID: [id number] Author: Zahra Burks (Go-L) Service: Occupational Therapy Author Type: Weeder Type: Therapy (PT/OT/Speech/Resp) Filed: 11/09/2017 2:27 PM Note Text: Attestation signed by Yue Uriostegui at 11/09/2017 2:36 PM I reviewed and agree with the documentation corresponding to this therapy visit. SIGNATURE: JERMAINE Maldonado/Allie DATE: November 09, 2017 TIME: 2:36 PM Occupational Therapy Treatment SERVICE DATE: 11/09/2017 SERVICE TIME: 1102 to 1213 ROOM: [place] [address] Recommended Discharge Disposition: Acute Rehab Justification For [...] daily living (ADL) Interventions Provided: Therapeutic Exercise (68997);Therapeutic Activity (57718);Self Half-Way Management (02604) Therapeutic Exercise (95352) Treatment Minutes: 28 2 units Skilled Intervention(s): [...] press, elbow flexion, elbow extension, Therapeutic Activity (15555) Treatment Minutes: 15 1 unit Skilled Intervention(s): [...] at a time for additional support. Self Half-Way Management (92620) Treatment Minutes: 28 2 units Skilled Intervention(s): [...] complete details for this therapy evaluation/treatment. SIGNATURE: MAICO Perez PATIENT NAME: Paloma Cannon DATE: November 09, 2017 TIME: 1:37 PM PAGER: [phone] PROGRESS Observed: 11/09/2017 Status: COMPLETED Source: [place] 11:38 AM [facility] REPOSITORY HNO ID: [id number] Author: Edson Mohr Service: General Internal Medicine Author Type: Physician Type: Progress Notes Filed: 11/09/2017 1:58 PM Note Text: DEPARTMENT OF INTERNAL MEDICINE: PROGRESS NOTE PRIMARY TEAM: RAF Terry Weekdays 7 am to 5 pm/Weekend 7 am to 3 pm: Page [phone] 5 pm to 7 am/Weekend 3 pm to 7 am: Pattern Cutter Pager [phone] PATIENT NAME: Paloma Cannon BRIEF PLAN FOR [...] IR emobolization of left L3 artery at [place] on 10/23 IR embolization of left L2 [...] contrast, now requiring dialysis First HD at [place] on 10/25 with tunneled dialysis catheter placement [...] this morning, access site for embolization at [place], no erythema or induration appreciated on exam, exquisitely TTP Groin study showed no signs of PSA, known AV fistula visualized with retrograde flow, vascular med aware- no further recs 10/28: pain less severe, no physical exam findings Repeat Leg DVT shows no pseudoaneurysm Likely due to nerve compression/RP hematoma causing compressive symtpoms S/p R groin bag placed at [place] on 10/24 s/p L groin bag placed at [facility] during embolization on 10/26 Plan: - Pain management-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 MANAGER BILLING as of transfer to [facility] - Will continue to wean dilaudid as pt tolerates, currently kept her on Dilaudid 0.4 mg q4h PRN for pain ? ? ? SIGNATURE: Dayton Acuna MD, PGY2 PAGER: [phone] DATE of SERVICE: November 09, 2017 TIME of SERVICE: 11:38 AM This note is not final until signed by a Staff Physician [facility] [place] STAFF PHYSICIAN NOTE OF PERSONAL INVOLVEMENT IN [...] guided intervention Course complicated with CAPRICE requiring ASPHALT ROLLER PERSON , volume overload, thrombocytopenia, persistent anemia ? [...] CASE MANAGEM Observed: 11/09/2017 Status: COMPLETED Source: [place] 11:16 AM [facility] REPOSITORY HNO ID: [id number] Author: Jacinta Aguilar (Rn) JEFF Olmedo Service: Care Management Author Type: Registered Nurse Type: Care Mgt Progress Note Filed: 11/09/2017 11:17 AM Note Text: CARE MANAGEMENT PROGRESS NOTE SERVICE DATE: 11/09/2017 SERVICE TIME: 11:16 AM LOS: 15 days Needs Prior to Discharge: Accepting Facility;Discharge Transportation;Facility or Agency Choices;Insurance Authorization;Patient/Family Dc date TBD CC AR contact Is Krysta (p) [phone] (please contact directly rather through ecin) . Per Krysta, pt would like [facility] placement as close to home as possible- [facility]. Referal sent and awaiting response from [facility]. Pt will need close lab montoring (2x/day) of blood status for possible need for transfusion. M80 may be the best option and pt would be agreeable if not accepted by [place] or [facility]. Current on 2LO2/nc, has home O2 2L 02 via [employer]. .Apheresis, IHD (may be short term). If pt presents to bedside please contact Krysta at (p) [phone]. CM to continue to follow SIGNATURE: Jacinta Olmedo RN PATIENT NAME: Paloma Cannon DATE: November 09, 2017 TIME: 11:16 AM PAGER/CONTACT #: [phone] [facility] Observed: 11/09/2017 Status: COMPLETED Source: [place] 10:00 AM [facility] REPOSITORY HNO ID: [id number] Author: Kayla Levin (Therapist), [place] Service: Music Therapy Author Type: Music Therapist [...] follow up as able. SIGNATURE: [facility] PATIENT NAME: Paloma Cannon DATE: November 10, 2017 TIME: 9:16 AM PAGER/CONTACT #: [phone] ALLIED HEALTH Observed: 11/09/2017 Status: COMPLETED Source: [place] 9:53 AM [facility] REPOSITORY HNO ID: [id number] Author: Aline (Rn) JEFF Schreiber Service: Wound/Ostomy [...] noted. used stomahesive powder and covered with [place] Hollihesive skin barrier wedge. ? Pouching: Removed: [place] Hollihesive skin barrier washer cut open 3/4, wedge at 3 and 9 o'clock, then [place] premier flat urostomy pouch cut opening 1, connected to gravity drianage bag. Wear Time: 24 hours. Paste completely swelled Recommendations: Pouching System: [place] Hollihesive wedge at 3 and 9 o'clock; 2x2 Hollihesive washer, cut to 7/8 x 1 (inner radial slits), caulk seams with stomahesive paste, [place] Premier Urostomy Pouch (outer radial slits), Adapt Oval Convex Ring (05931 small), connected to gravity drainage, mefix tape. Wear Time: 7 days is the goal Comment: 1 set of supplies at bedside Time Increment: 45 minutes .Aline Schreiber, RN, BSN, CWCN, COCN, CCCN WOC Nursing - Please place consult via [email or web address]. Thank you. (M-F: [phone]; Weekends AND Holidays: [phone]). Zahra Jacinto, RN, BSN (G90 Nursing Shadow) CBC Collected: 11/09/2017 Status: F Source: [place] 5:49 AM [facility] REPOSITORY TYPE CODE TESTS RESULT [...] MG1, PHOS, BMP #### [facility] [address] [address] MAGNESIUM Collected: 11/09/2017 Status: F Source: [place] 5:49 AM [facility] REPOSITORY TYPE CODE TESTS RESULT OUT OF REFERENCE UNITS RANGE LAB MG 1.7-2.3 mg/dL Magnesium 2.0 Performed By: #### CBC, MG1, PHOS, BMP #### [facility] [address] [place], [place] [address] PHOSPHORUS Collected: 11/09/2017 Status: F Source: [place] 5:49 AM [facility] REPOSITORY TYPE CODE TESTS RESULT OUT OF REFERENCE UNITS RANGE LAB PHOS 2.7-4.8 mg/dL Phosphorus 3.8 Performed By: #### CBC, MG1, PHOS, BMP #### [facility] [address], [place] [address] BASIC METABOLIC PANL Collected: 11/09/2017 Status: F Source: [place] 5:49 AM [facility] REPOSITORY TYPE CODE TESTS RESULT OUT OF REFERENCE UNITS RANGE LAB GLU 74-99 mg/dL Glucose 88 Result Comment: The [place] Diabetes Association (ADA) provides guidance for cutoff [...] Standards of Medical Care in Diabetes 2016, [place] Diabetes Association. Diabetes Care. 2016.39(Suppl 1). LAB [...] MG1, PHOS, BMP #### [facility] [address] [place], [place] [address] TYPE AND SCREEN Collected: 11/09/2017 Status: F Source: [place] 5:49 AM [facility] REPOSITORY TYPE CODE TESTS RESULT OUT OF REFERENCE UNITS RANGE LAB %ABR B ABO/RH(D) POSITIVE LAB % Antibody POS Screen Performed By: #### TSCR #### [facility] [address] [place], [place] [address] CONSULT PROG Observed: 11/08/2017 Status: COMPLETED Source: [place] 5:01 PM [facility] REPOSITORY HNO ID: [id number] Author: Luz Maria Shukla) Aiden Service: Hematology [...] Component Latest Ref Rng AND Units 11/08/2017 [id number] Inhibitor <0.5 0.4 SODLXE72 Activity >67 % 56 (L) CMLDKB72 Interp (NOTE) Component Latest Ref Rng AND [...] IR guided intervention (initially on 10/23 at [facility] and 10/26 here at [facility]. ? # Antiphospholipid antibody syndrome -Current [...] might be related to resolving hematoma.? SIGNATURE: Siham Jaouad, PA-C PATIENT NAME: Paloma Cannon DATE: November 08, 2017 TIME: 5:01 PM PAGER: [phone] Addendum I have repeated the pertinent features [...] PLT COUNT Collected: 11/08/2017 Status: F Source: [place] 2:30 PM [facility] REPOSITORY TYPE CODE TESTS RESULT OUT OF REFERENCE UNITS RANGE LAB PLTCIT 150-400 K/uL Low Citrated Plt 39 Count Result Comment: Result checked and verified No clot detected. Reviewed Sodium Citrate Sample. Performed By: #### CITPLT #### [facility] [address] [place], [place] [address] NUTRITION Observed: 11/08/2017 Status: COMPLETED Source: [place] 1:20 PM [facility] REPOSITORY HNO ID: [id number] Author: Thalia Rockwell (Diet-T) Service: Nutrition Therapy Author Type: Machine Feeder Raw Stock Type: Nutrition Filed: 11/08/2017 1:33 PM Note [...] Type: Routine Care/15 min 2 units SIGNATURE: Kaushik Tineo PATIENT NAME: Paloma Cannon DATE: November 08, 2017 TIME: 1:20 PM PAGER: [phone] [facility] Observed: 11/08/2017 Status: COMPLETED Source: [place] 12:41 PM [facility] [place] REPOSITORY HNO ID: [id number] Author: Tara (Jeff) Manny Vann RN Service: [...] noted. used stomahesive powder and covered with [place] Hollihesive skin barrier. Pouching: Kyle Hollihesive skin barrier washer cut open 3/4, wedge at 3 and 9 o'clock, then [place] premier flat urostomy pouch cut opening 1, connected to gravity drianage bag. Since the area was folded 1/2 due to groin and abdominal folds, it may be difficult to drain the fluid. One change supplies at the bed side. Will follow. ET's Next Scheduled Visit: 11/10 for discharge needs, may need lesson. TIME INCREMENT: 45 minutes ELIZABETH RatliffN RN CWOCN [facility] nursing pager [phone] (M-F 7a-4p, Sat, Sun, Holiday 7a-3p) CASE MANAGEM Observed: 11/08/2017 Status: COMPLETED Source: [place] 11:28 AM [facility] REPOSITORY HNO ID: [id number] Author: Carmita Zee (Lisw) Service: (none) Author Type: Painting Department Supervisor Type: Care Mgt Progress Note Filed: 11/08/2017 11:31 AM Note Text: CARE MANAGEMENT PROGRESS NOTE SERVICE DATE: 11/08/2017 SERVICE TIME: 11:28 AM LOS: 14 days Needs Prior to Discharge: Accepting Facility;Insurance Authorization;Discharge Transportation ERIKA met with the patient and her spouse. They would like for the patient to go to [place] closer to their home in [place]. ERIKA provided a list. The patient chose [facility]. ERIKA sent the referral, waiting for a response. SIGNATURE: ISATU Katz PATIENT NAME: Paloma Cannon DATE: November 08, 2017 TIME: 11:28 AM PAGER/CONTACT #: [phone] [id number] EVALUATION Collected: 11/08/2017 Status: F Source: [place] 9:45 AM [facility] REPOSITORY TYPE CODE TESTS RESULT OUT OF REFERENCE UNITS RANGE LAB AD13IH <0.5 WPMTKQ41 0.4 Inhibitor Result Comment: This test was developed and its performance characteristics determined by [facility]'s [facility] [place] ([facility]). It has not been cleared or approved by the FDA. [facility] is regulated under CLIA as qualified to perform high-complexity testing. This test is used for clinical purposes. It should not be regarded as investigational or for research. LAB AD13A >67 % Low CYFNLG59 Activity 54 Result Comment: This test was developed and its performance characteristics determined by [facility] [place] ([facility]). It has not been cleared or approved by the FDA. [facility] is regulated under CLIA as qualified to perform high-complexity testing. This test is used for clinical purposes. It should not be regarded as investigational or for research. LAB AD13AP QUUPTL56 Act Interp (NOTE) Result Comment: Performing Pathologist: Lisseth Ashley M.D. Abnormal - see comment below. SIGNIFICANT FINDINGS: 1. 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 the LKJJOV22 activity level is mildly decreased. HIFQZD14 INHIBITOR SCREEN AND/OR INHIBITOR ASSAY: YXEWBQ14 inhibitor assay was performed using mixing studies after 1:1 mixing of normal pooled plasma and the patient's plasma, and residual JFBKEN66 activity was measured using FRET technology. No DUKQGZ24 inhibitor is detected (< or = 0.4 Inhibitor Units). SUMMARY: Thrombotic thrombocytopenic purpura (TTP), idiopathic (autoimmune) type, is unlikely. If clinically indicated, consider ordering YMPXEV18 activity and/or inhibitor assay in a new specimen. If clinically indicated, antibody assay is suggested to rule out thrombotic thrombocytopenic purpura (TTP), idiopathic (autoimmune-related) type. Correlate with other clinical conditions associated with decreased DVOFIH74 activity such as hemolytic uremic syndrome, hematopoietic stem cell or solid organ transplantation, sepsis, DIC, HIV infection, inflammation, bloody diarrhea, liver disease, , malignancy, or certain drug effects (e.g.,clopidogrel, cyclosporin, mitomycin C, ticlopidine, etc), and congenital HRMVDK62 deficiency (Skylar-Rafaela syndrome). Severe hemolysis (Hb 2 g/L), hyperbilirubinemia, hyperlipidemia and elevated von Willebrand factor antigen levels can interfere with HUOPUG16 activity assay. Recent transfusion or plasma exchange therapy can falsely normalize EFZDXG87 level, and mask the diagnosis of thrombotic thrombocytopenic purpura (TTP). 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 ? Consent for ASPHALT ROLLER PERSON: ASPHALT ROLLER PERSON initiation date: 10/26/17 Consent obtained and in EMR. SIGNATURE: Catherine Oh MD PATIENT NAME: Paloma Cannon DATE: November 08, 2017 TIME: 9:28 AM PAGER: [phone] TEACHING PHYSICIAN NOTE OF PERSONAL INVOLVEMENT IN [...] few weeks Cheri Cuba MD Beeper Number [id number] Authenticated by responsible provider. PROGRESS Observed: 11/08/2017 Status: COMPLETED Source: [place] 6:50 AM [facility] REPOSITORY [facility] ID: [id number] Author: Dianna (Rn) JEFF Acevedo Service: (none) Author Type: Registered Nurse Type: Progress Notes Filed: 11/08/2017 6:50 AM Note Text: Nursing Progress Note Vital Clinical Research Scientist Assessment Note Patient Name: Paloma Cannon Patient Location: [place] [address] Patient Vitals in the past 4 hrs: 11/08/17 0500, BP:186/86, Temp:36.4 ?C (97.6 ?F), Temp src:Oral, Pulse:91, Resp:18, SpO2:94 % Status Change Related to: Cardiac;Vascular Issues (See Nursing Clinical Assessment For Details) The Following People Were Notified: Collar Closer Lockstitch/Provider: See Documentation Related to: Continuous Monitoring;Medications Additional Comments : This note was completed by: Dianna Acevedo RN PROGRESS Observed: 11/08/2017 Status: COMPLETED Source: [place] 6:43 AM [facility] REPOSITORY HNO ID: [id number] Author: Edson Mohr Service: General Internal Medicine Author Type: Physician Type: Progress Notes Filed: 11/08/2017 1:46 PM Note Text: DEPARTMENT OF INTERNAL MEDICINE: PROGRESS NOTE PRIMARY TEAM: RAF Terry Weekdays 7 am to 5 pm/Weekend 7 am to 3 pm: Page [phone] (Day[place] Acuna) Week 5 pm to 7 am/Weekend 3 pm to 7 am: Pattern Cutter Pager [phone] PATIENT NAME: Paloma Cannon BRIEF PLAN FOR [...] IR emobolization of left L3 artery at [place] on 10/23 IR embolization of left L2 [...] contrast, now requiring dialysis First HD at [place] on 10/25 with tunneled dialysis catheter placement [...] this morning, access site for embolization at [place], no erythema or induration appreciated on exam, exquisitely TTP Groin study showed no signs of PSA, known AV fistula visualized with retrograde flow, vascular med aware- no further recs 10/28: pain less severe, no physical exam findings Repeat Leg DVT shows no pseudoaneurysm Likely due to nerve compression/RP hematoma causing compressive symtpoms S/p R groin bag placed at [place] on 10/24 s/p L groin bag placed at [facility] during embolization on 10/26 Plan: - Pain management-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 MANAGER BILLING as of transfer to [facility] - Will continue to wean dilaudid as pt tolerates, currently kept her on Dilaudid 0.4 mg q3h PRN for pain ? ? SIGNATURE: Dayton Acuna MD, PGY2 PAGER: [phone] DATE of SERVICE: November 08, 2017 TIME of SERVICE: 11:43 AM This note is not final until signed by a Staff Physician [facility] [place] STAFF PHYSICIAN NOTE OF PERSONAL INVOLVEMENT IN [...] by PE/DVT, DAH , HIT was on shelter coumadin, cytoxan , prednisone and pheresis. ?Recent admission for ?DAH. Discharged on fondaparinux?7.5mg daily? 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 requiring ASPHALT ROLLER PERSON , volume overload thrombocytopenia, persistent ?anemia ? [...] PM MAGNESIUM Collected: 11/08/2017 Status: F Source: [place] 12:39 AM [facility] REPOSITORY TYPE CODE TESTS RESULT OUT OF REFERENCE UNITS RANGE LAB MG 1.7-2.3 mg/dL Magnesium 2.1 Performed By: #### MG1, PHOS, BMP, CBC, RETIC #### [facility] [address] [place], [place] [address] PHOSPHORUS Collected: 11/08/2017 Status: F Source: [place] 12:39 AM [facility] REPOSITORY TYPE CODE TESTS RESULT OUT OF REFERENCE UNITS RANGE LAB PHOS 2.7-4.8 mg/dL Phosphorus 3.6 Performed By: #### MG1, PHOS, BMP, CBC, RETIC #### [facility] [address] [place], [place] [address] BASIC METABOLIC PANL Collected: 11/08/2017 Status: F Source: [place] 12:39 AM [facility] REPOSITORY TYPE CODE TESTS RESULT OUT OF REFERENCE UNITS RANGE LAB GLU 74-99 mg/dL High Glucose 112 Result Comment: The [place] Diabetes Association (ADA) provides guidance for cutoff [...] Standards of Medical Care in Diabetes 2016, [place] Diabetes Association. Diabetes Care. 2016.39(Suppl 1). LAB [...] BMP, CBC, RETIC #### [facility] [address] [place], [place] [address] CBC Collected: 11/08/2017 Status: F Source: [place] 12:39 AM [facility] REPOSITORY TYPE CODE TESTS RESULT [...] #### MG1, PHOS, BMP, CBC, RETIC #### [place] [address] RETICULOCYTE Collected: 11/08/2017 Status: F Source: [place] 12:39 [facility] REPOSITORY TYPE CODE TESTS RESULT OUT OF RANGE REFERENCE UNITS LAB RETC 0.4-2.0 % High Retic% 9.3 Result Comment: Results verified by dilution. LAB ABRET 0.0180-0.1000 M/uL High Abs Retic 0.247 Result Comment: Results verified by dilution. Performed By: #### MG1, PHOS, BMP, CBC, RETIC #### [place] [address] [id number] EVALUATION Collected: 11/08/2017 Status: F Source: [place] 12:39 [facility] REPOSITORY TYPE CODE TESTS RESULT OUT OF REFERENCE UNITS RANGE LAB AD13IH <0.5 NQSQGA15 0.4 Inhibitor Result Comment: This test was developed and its performance characteristics determined by [facility] [place] ([facility] It has not been cleared or approved by the FDA. [facility] is regulated under CLIA as qualified to perform high-complexity testing. This test is used for clinical purposes. It should not be regarded as investigational or for research. LAB AD13A >67 % Low VVBXUH78 Activity 56 Result Comment: This test was developed and its performance characteristics determined by [facility] [place] ([facility]). It has not been cleared or approved by the FDA. [facility] is regulated under CLIA as qualified to perform high-complexity testing. This test is used for clinical purposes. It should not be regarded as investigational or for research. LAB AD13AP NEXVTJ18 Act Interp (NOTE) Result Comment: Performing Pathologist: Lisseth Ashley M.D. Abnormal - see comment below. SIGNIFICANT FINDINGS: 1. 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 the YJNAOB21 activity level is mildly decreased. GVKWQS25 INHIBITOR SCREEN AND/OR INHIBITOR ASSAY: BMOTRO08 inhibitor assay was performed using mixing studies after 1:1 mixing of normal pooled plasma and the patient's plasma, and residual OHWFWN85 activity was measured using FRET technology. No QTEZRV78 inhibitor is detected (< or = 0.4 Inhibitor Units). SUMMARY: Thrombotic thrombocytopenic purpura (TTP), idiopathic (autoimmune) type, is unlikely. If clinically indicated, consider ordering WGCXBT23 activity and/or inhibitor assay in a new specimen. If clinically indicated, antibody assay is suggested to rule out thrombotic thrombocytopenic purpura (TTP), idiopathic (autoimmune-related) type. Correlate with other clinical conditions associated with decreased FUMOJW56 activity such as hemolytic uremic syndrome, hematopoietic stem cell or solid organ transplantation, sepsis, DIC, HIV infection, inflammation, bloody diarrhea, liver disease, , malignancy, or certain drug effects (e.g.,clopidogrel, cyclosporin, mitomycin C, ticlopidine, etc), and congenital OWTHLB04 deficiency (Skylar-Rafaela syndrome). Severe hemolysis (Hb 2 g/L), hyperbilirubinemia, hyperlipidemia and elevated von Willebrand factor antigen levels can interfere with EQOCQC94 activity assay. Recent transfusion or plasma exchange therapy can falsely normalize XZUKGU34 level, and mask the diagnosis of thrombotic thrombocytopenic purpura (TTP). Performed By: #### ADM13 #### [facility] [address] [place], [place] [address] NURSING PROG Observed: 11/07/2017 Status: COMPLETED Source: [place] 7:19 PM [facility] [place] REPOSITORY HNO ID: [id number] Author: Grace Deal (Rn), RN Service: (none) Author Type: Registered Nurse Type: Nursing Progress Note Filed: 11/18/2017 7:19 AM Note Text: Nursing Progress Note Patient Name: Paloma Cannon Patient Location: H080 015/H080-16 Daily Note:Patient medicated for pain, numerous times this shift. Effective temporarily. [place] A team made aware during bedside rounds. Patient educated regarding PRN medications. This note was completed by: Grace Deal RN [facility] Observed: 11/07/2017 Status: COMPLETED Source: [place] 5:26 PM [facility] REPOSITORY HNO ID: [id number] Author: Negrito Kelley (Therapist) Miranda Service: Art Therapy Author Type: Therapist Type: Allied Health Filed: 11/07/2017 5:28 PM Note Text: ART THERAPY NOTE SERVICE DATE: 11/07/2017 SERVICE TIME: 4:00 Referred By: PT Reason for Referral: anxiety COMMENTS: Consult was received and appreciated. Pt asleep upon attempt. Did not disturb. Will follow up as able. SIGNATURE: Negrito Jean [employer] [facility] PATIENT NAME: Paloma Cannon DATE: November 07, 2017 TIME: 5:26 PM PAGER/CONTACT #: [phone] ALLIED HEALTH Observed: 11/07/2017 Status: COMPLETED Source: [place] 2:55 PM [facility] REPOSITORY HNO ID: [id number] Author: Kayla Stewart (Therapist) GINA Levin Service: [...] MT will follow up as able. SIGNATURE: LEROY Dominguez PATIENT NAME: Paloma Cannon DATE: November 08, 2017 TIME: 9:16 AM PAGER/CONTACT #: [phone] HISTORY PHYSICAL Observed: 11/07/2017 Status: COMPLETED Source: [place] 12:18 PM [facility] REPOSITORY HNO ID: [id number] Author: Indra Naqvi [facility] Service: Physical Therapy Author Type: Banquet Steward Type: HANDP Filed: 11/07/2017 12:27 PM Note Text: Attestation signed by Mandy SanchezPtDevonte Wakefield at 11/07/2017 12:29 PM I reviewed and agree with the documentation corresponding to this therapy visit. SIGNATURE: Mandy Wakefield, DPT DATE: November 07, 2017 TIME: 12:29 PM Physical Therapy Treatment SERVICE DATE: 11/07/2017 SERVICE TIME: 1133 to 1211 ROOM: [place] [address] Recommended Discharge Disposition: Acute Rehab Justification For [...] Diagnosis: Reduced mobility-other Interventions Provided: Gait Training (42672);Therapeutic Exercise (04386);Therapeutic Activity (00865) Therapeutic Exercise (88883) Treatment Minutes: 15 1 unit Skilled Intervention(s): [...] in reasoning for each exercise. Therapeutic Activity (19125) Treatment Minutes: 8 1 unit Skilled Intervention(s): Instructed patient in log roll technique Instructed patient in supine to sit pushing with upper extremities to sit up Education with importance of OOB activities Patient sat EOB for 5 mins for core strengthening with CGA/SBA Gait Training (69821) Treatment Minutes: 15 1 unit Skilled Intervention(s): [...] 07, 2017 TIME: 12:18 PM PAGER/CONTACT #: [phone] CONSULT PROG Observed: 11/07/2017 Status: COMPLETED Source: [place] 10:13 AM [facility] REPOSITORY HNO ID: [id number] Author: Luz Maria (Md) Aiden Service: Hematology Author Type: Physician Type: [...] IR guided intervention (initially on 10/23 at [facility] and 10/26 here at [facility]. ? # Antiphospholipid antibody syndrome -Current [...] ( ordered) - #CAPRICE on CKD -On ASPHALT ROLLER PERSON since 10/26 SIGNATURE: Justina Pollard PA-C PATIENT NAME: Paloma Cannon DATE: November 07, 2017 TIME: 10:13 AM PAGER: [phone] Addendum: I have repeated the pertinent features [...] CASE MANAGEM Observed: 11/07/2017 Status: COMPLETED Source: [place] 9:26 AM [facility] REPOSITORY HNO ID: [id number] Author: Yeni Esqueda (Sw) Service: (none) Author Type: Painting Department Supervisor Type: Care Mgt Progress Note Filed: 11/08/2017 [...] room during time of assessment. Pt gave permission to speak to if necessary. SOCIAL HISTORY Marital Status: . Relationship described as good Children (Including Quality of Relationship): Pt stated she is not able to have children due to medical issues. and Patient Does Not Have Children Sexual Orientation: Heterosexual Gender Identity: Female Abuse History: No, Patient/Recruiting Operations Consultant Denies Education History: Associate Degree and Culinary Arts Support System: Family: Status (Including History of Combat Experience): None Legal History:Patient/Recruiting Operations Consultant Denies Adventist/Spirituality: Wiccan Do Special Considerations/Accommodations Need to be Made? No Are There Practices or Beliefs That May Affect or Influence Care? No, Patient/Recruiting Operations Consultant Denies Patient Strengths/Protective Factors: Able to Communicate Needs Educational Background Future-Oriented Supportive Friends/Family PSYCHIATRIC HISTORY: Pt states that she may possibly have some depresson due to her medical issues Family Psychiatric History No Known Psychiatric Illness Homicide/Suicide Risk None Substance Use and Treatment History: Patient/Recruiting Operations Consultant Denies Offered Patient Resources: No DISCHARGE RECOMMENDATIONS: Medical Follow-Up and Alf Facility Patient/Recruiting Operations Consultant Agreeable With Discharge Recommendations At This Time? [...] Per chart pt was recently discharged from [facility] (10/22) after her 6th episode of respiratory [...] 07, 2017 TIME: 9:26 AM PAGER/CONTACT #: [phone] PROGRESS Observed: 11/07/2017 Status: COMPLETED Source: [place] 6:03 AM [facility] REPOSITORY O ID: [id number] Author: Edson Mohr Service: General Internal Medicine Author Type: Physician Type: Progress Notes Filed: 11/07/2017 2:28 PM Note Text: DEPARTMENT OF INTERNAL MEDICINE: PROGRESS NOTE PRIMARY TEAM: RAF Terry Weekdays 7 am to 5 pm/Weekend 7 am to 3 pm: Page [phone] (Dayton Acuna) Weekdays 5 pm to 7 am/Weekend 3 pm to 7 am: Pattern Cutter Pager [phone] PATIENT NAME: Paloma Cannon BRIEF PLAN FOR [...] IR emobolization of left L3 artery at [place] on 10/23 IR embolization of left L2 [...] contrast, now requiring dialysis First HD at [place] on 10/25 with tunneled dialysis catheter placement [...] this morning, access site for embolization at [place], no erythema or induration appreciated on exam, exquisitely TTP Groin study showed no signs of PSA, known AV fistula visualized with retrograde flow, vascular med aware- no further recs 10/28: pain less severe, no physical exam findings Repeat Leg DVT shows no pseudoaneurysm Likely due to nerve compression/RP hematoma causing compressive symtpoms S/p R groin bag placed at [place] on 10/24 s/p L groin bag placed at [facility] during embolization on 10/26 Plan: - Pain management-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 MANAGER BILLING as of transfer to [facility] - Will continue to wean dilaudid as pt tolerates, currently kept her on Dilaudid 0.4 mg q3h PRN for pain SIGNATURE: Dayton Acuna MD, PGY2 PAGER: [phone] DATE of SERVICE: November 07, 2017 TIME of SERVICE: 6:03 AM This note is not final until signed by a Staff Physician [facility] STAFF PHYSICIAN NOTE OF PERSONAL INVOLVEMENT IN [...] guided intervention Course complicated with CAPRICE requiring ASPHALT ROLLER PERSON , volume overload thrombocytopenia, persistent anemia ? [...] NURSING PROG Observed: 11/07/2017 Status: COMPLETED Source: [place] 5:18 AM [facility] REPOSITORY HNO ID: [id number] Author: Galdino (Rn) JEFF Adams Service: Nursing Author Type: Registered Nurse Type: Nursing Progress Note Filed: 11/07/2017 5:20 AM Note Text: Nursing Progress Note Patient Name: Plaoma Cannon Patient Location: H080 015/H080-16 Daily Note: Pt AANDOx3, continuing to refuse Q2 hr turns. Educated pt on the importance of turning and pt verbally understands. Pt able to turn self with assistance. Pt pain well controlled with dilaudid per MAR. This note was completed by: Galdino Adams RN MAGNESIUM Collected: 11/07/2017 Status: F Source: [place] 4:30 AM [facility] REPOSITORY TYPE CODE TESTS RESULT OUT OF REFERENCE UNITS RANGE LAB MG 1.7-2.3 mg/dL Low Magnesium 1.6 Performed By: #### MG1, PHOS, BMP, RETIC, PRCFUN, PROTSI, PRSCLT #### [facility] [address] [place] [address] PHOSPHORUS Collected: 11/07/2017 Status: F Source: [place] 4:30 AM [facility] REPOSITORY TYPE CODE TESTS RESULT OUT OF REFERENCE UNITS RANGE LAB PHOS 2.7-4.8 mg/dL Phosphorus 3.8 Performed By: #### MG1, PHOS, BMP, RETIC, PRCFUN, PROTSI, PRSCLT #### [facility] [address] [place] [address] BASIC METABOLIC PANL Collected: 11/07/2017 Status: F Source: [place] 4:30 AM [facility] REPOSITORY TYPE CODE TESTS RESULT OUT OF REFERENCE UNITS RANGE LAB GLU 74-99 mg/dL High Glucose 142 Result Comment: The [place] Diabetes Association (ADA) provides guidance for cutoff [...] Standards of Medical Care in Diabetes 2016, [place] Diabetes Association. Diabetes Care. 2016.39(Suppl 1). LAB [...] PHOS, BMP, RETIC, PRCFUN, PROTSI, PRSCLT #### [facility] [address] [place] [id number] RETICULOCYTE Collected: 11/07/2017 Status: F Source: [place] 4:30 AM [facility] REPOSITORY TYPE CODE TESTS RESULT OUT OF RANGE REFERENCE UNITS LAB RETC 0.4-2.0 % High Retic% 11.0 Result Comment: Results verified by dilution. LAB ABRET 0.0180-0.1000 M/uL High Abs Retic 0.328 Result Comment: Results verified by dilution. Performed By: #### MG1, PHOS, BMP, RETIC, PRCFUN, PROTSI, PRSCLT #### [place] [address] [place] [address] PROTEIN C FUNCTIONAL Collected: 11/07/2017 Status: F Source: [place] 4:30 AM [facility] REPOSITORY TYPE CODE TESTS RESULT OUT OF REFERENCE UNITS RANGE LAB PRCFUN 76-147 % Protein High C Functional 167 Result Comment: The protein C level is elevated. This may be seen with an acute phase response, but is of doubtful clinical significance. Performed By: #### MG1, PHOS, BMP, RETIC, PRCFUN, PROTSI, PRSCLT #### [place] [address] PROT S IMMUNOLOGIC Collected: 11/07/2017 Status: F Source: [place] 4:30 AM [facility] REPOSITORY TYPE CODE TESTS RESULT OUT OF REFERENCE UNITS RANGE LAB TPROTS 74-156 % Total Protein 84 S LAB FPROTS 55-148 % Free Protein 99 S Performed By: #### MG1, PHOS, BMP, RETIC, PRCFUN, PROTSI, PRSCLT #### [place] [address] PROTEIN S CLOTTABLE Collected: 11/07/2017 Status: F Source: [place] 4:30 AM [facility] REPOSITORY TYPE CODE TESTS RESULT OUT OF REFERENCE UNITS RANGE LAB PRSCLT 59-131 % Protein S 75 Clottable Performed By: #### MG1, PHOS, BMP, RETIC, PRCFUN, PROTSI, PRSCLT #### [place] [address] TYPE AND SCREEN Collected: 11/07/2017 Status: F Source: [place] 4:30 AM [facility] REPOSITORY TYPE CODE TESTS RESULT OUT OF REFERENCE UNITS RANGE LAB %ABR B ABO/RH(D) POSITIVE LAB % Antibody POS Screen Performed By: #### TSCR #### [place] [address] CBC Collected: 11/07/2017 Status: F Source: [place] 4:30 AM [facility] REPOSITORY TYPE CODE TESTS RESULT OUT OF [...] By: #### CBC #### [facility] [address] [place], [place] [address] CBC Collected: 11/06/2017 Status: F Source: [place] 8:03 PM [facility] REPOSITORY TYPE CODE TESTS RESULT OUT OF [...] By: #### CBC #### [facility] SVXR0 [facility], [place] [address] NURSING PROG Observed: 11/06/2017 Status: COMPLETED Source: [place] 7:33 PM [facility] REPOSITORY HNO ID: [id number] Author: Grace (Rn) JEFF Deal Service: (none) [...] CASE MANAGEM Observed: 11/06/2017 Status: COMPLETED Source: [place] 3:30 PM [facility] REPOSITORY HNO ID: [id number] Author: Jacinta Aguilar (Rn) JEFF Olmedo Service: [...] TBD. Skilled AR, AR referral sent to [facility] for information to assist pt w deciding AR location. 2L NC via [employer]. Current on 2LO2/nc. Pt will be at bedside 11/08 between 9an and 3p to participate in dc planning. . . Apheresis, IHD, pain, leg numbness/weakness improving. CM to continue to follow SIGNATURE: Jacinta Olmedo RN PATIENT NAME: Paloma Cannon DATE: November 06, 2017 TIME: 3:30 PM PAGER/CONTACT #: [phone] CBC Collected: 11/06/2017 Status: F Source: [place] 10:12 AM [facility] REPOSITORY TYPE CODE TESTS RESULT OUT OF [...] By: #### CBC #### [facility] [address] [place], [place] [address] CONSULT PROG Observed: 11/06/2017 Status: COMPLETED Source: [place] 9:49 AM [facility] REPOSITORY HNO ID: [id number] Author: Aj Keenan Service: Hematology Author Type: Physician Type: Consult Progress Note Filed: 11/06/2017 7:39 PM Note Text: ? [facility] DEPARTMENT OF HEMATOLOGIC ONCOLOGY AND BLOOD DISORDERS ? Hematology Consult Follow Up ? ? Patient name: Paloma Cannon : 1990 Date of Service: November 06, 2017 Supervising attending physician: Dr. Keenna ? INTERVAL HISTORY: No acute issues Feeling [...] IR guided intervention (initially on 10/23 at [facility] and 10/26 here at [facility]. ? # Antiphospholipid antibody syndrome Extensive [...] MD Fellow, Hematology and Medical Oncology Pager: [phone] STAFF ADDENDUM: I have reviewed the history, [...] hemolysis and microangiopathy[place]. [phone] CONSULT PROG Observed: 11/06/2017 Status: COMPLETED Source: [place] 9:04 [facility] REPOSITORY HNO ID: [id number] Author: Domingo Fleming Service: Radiology Author Type: [...] with IR staff Dr Aranda. 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 Consent for ASPHALT ROLLER PERSON: ASPHALT ROLLER PERSON initiation date: 10/26/17 Consent obtained and in EMR. Cheri Cuba MD/Staff November 06, 2017 9:06 AM PAGER # [phone] Department of Nephrology and Hypertension PROGRESS Observed: 11/06/2017 Status: COMPLETED Source: [place] 6:03 AM [facility] [place] REPOSITORY HNO ID: [id number] Author: Edson Mohr Service: General Internal Medicine Author Type: Physician Type: Progress Notes Filed: 11/06/2017 3:11 PM Note Text: DEPARTMENT OF INTERNAL MEDICINE: PROGRESS NOTE PRIMARY TEAM: RAF Terry Weekdays 7 am to 5 pm/Weekend 7 am to 3 pm: Page [phone] 5 pm to 7 am/Weekend 3 pm to 7 am: Pattern Cutter Pager [phone] PATIENT NAME: Paloma Cannon BRIEF PLAN FOR [...] bleed: s/p 7 units PRBCs [facility] at [place] on [facility]/23 IR embolization of left L2 [...] contrast, now requiring dialysis First HD at [place] on 10/25 with tunneled dialysis catheter placement followed by [address] Abdomen/pelvis from 10/26 showed occlusion of B/L renal veins, outflow not appreciated- could be attributing to CAPRICE and CKD Bladder scan 10/29- UOP improving Responding well to IV Diuretics [...] this morning, access site for embolization at [place], no erythema or induration appreciated on exam, exquisitely TTP Groin study showed no signs of PSA, known AV fistula visualized with retrograde flow, vascular med aware- no further recs 10/28: pain less severe, no physical exam findings Repeat Leg DVT shows no pseudoaneurysm Likely due to nerve compression/RP hematoma causing compressive symtpoms S/p R groin bag placed at [place] on 10/24 s/p L groin bag placed at [facility] during embolization on 10/26 Plan: - Pain management-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 MANAGER BILLING as of transfer to [facility] - Will continue to wean dilaudid as pt tolerates, currently kept her on Dilaudid 0.4 mg q3h PRN for pain SIGNATURE: Dayton Acuna MD, PGY2 PAGER: [phone] DATE of SERVICE: November 06, 2017 TIME of SERVICE: 6:04 AM This note is not final until signed by a Staff Physician [facility] STAFF PHYSICIAN NOTE OF PERSONAL INVOLVEMENT IN [...] guided intervention Course complicated with CAPRICE requiring ASPHALT ROLLER PERSON , volume overload thrombocytopenia, persistent anemia and Moraxella Pneumonia Stable persistent L sided abdominal pain PLAN: as delineated above Unable to anticoagulate at this time ok to remove R drainage bag as per IR SIGNATURE: Edson Mohr MD PAGER: [phone] DATE of SERVICE: November 06, 2017 TIME of SERVICE: 11:00 am CBC Collected: 11/06/2017 Status: F Source: [place] 5:35 AM [facility] REPOSITORY TYPE CODE TESTS RESULT OUT OF [...] BMP, HAPTO, LD6 #### [facility] [address] [place] [id number] MAGNESIUM Collected: 11/06/2017 Status: F Source: [place] 5:35 AM [facility] REPOSITORY TYPE CODE TESTS RESULT OUT OF REFERENCE UNITS RANGE LAB MG 1.7-2.3 mg/dL Magnesium 1.7 Performed By: #### CBC, MG1, PHOS, IRON, BMP, HAPTO, LD6 #### [facility] [address] [place], [place] [address] PHOSPHORUS Collected: 11/06/2017 Status: F Source: [place] 5:35 AM [facility] REPOSITORY TYPE CODE TESTS RESULT OUT OF REFERENCE UNITS RANGE LAB PHOS 2.7-4.8 mg/dL Phosphorus 3.3 Performed By: #### CBC, MG1, PHOS, IRON, BMP, HAPTO, LD6 #### [facility] [address] [place] [id number] IRON AND TIBC Collected: 11/06/2017 Status: F Source: [place] 5:35 AM [facility] REPOSITORY TYPE CODE TESTS RESULT OUT OF REFERENCE UNITS RANGE LAB IRN 41-186 ug/dL Iron 90 LAB TIBC 232-386 ug/dL TIBC 301 LAB SAT 15-57 % Transferrin Saturatn 30 Performed By: #### CBC, MG1, PHOS, IRON, BMP, HAPTO, LD6 #### [place] [address] [place] [address] BASIC METABOLIC PANL Collected: 11/06/2017 Status: F Source: [place] 5:35 AM [facility] REPOSITORY TYPE CODE TESTS RESULT OUT OF REFERENCE UNITS RANGE LAB GLU 74-99 mg/dL High Glucose 107 Result Comment: The [place] Diabetes Association (ADA) provides guidance for cutoff [...] Standards of Medical Care in Diabetes 2016, [place] Diabetes Association. Diabetes Care. 2016.39(Suppl 1). LAB [...] BMP, HAPTO, LD6 #### [facility] [address] [place] [address] HAPTOGLOBIN Collected: 11/06/2017 Status: F Source: [place] 5:35 AM [facility] REPOSITORY TYPE CODE TESTS RESULT OUT OF REFERENCE UNITS RANGE LAB HAPTO 31-238 mg/dL Low Haptoglobin <10 Performed By: #### CBC, MG1, PHOS, IRON, BMP, HAPTO, LD6 #### [facility] [address] [place] [id number] LD Collected: 11/06/2017 Status: F Source: [facility] 5:35 AM [facility] REPOSITORY TYPE CODE TESTS RESULT OUT OF RANGE REFERENCE UNITS LAB LD 135-214 U/L High LD 1285 Performed By: #### CBC, MG1, PHOS, IRON, BMP, HAPTO, LD6 #### [facility] [address] [place] [id number] CBC Collected: 11/06/2017 Status: F Source: [place] 1:30 AM [facility] REPOSITORY TYPE CODE TESTS RESULT OUT OF [...] By: #### CBC #### [facility] [address] [place] [address] NURSING PROG Observed: 11/05/2017 Status: COMPLETED Source: [place] 10:22 PM [facility] REPOSITORY HNO ID: [id number] Author: Daria (Rn) JEFF Wagner Service: (none) Author Type: Registered Nurse Type: Nursing Progress Note Filed: 11/06/2017 6:57 AM Note Text: Nursing Progress Note Patient Name: Paloma Cannon [address] Daily Note: 2200 - Potassium IV to [...] RN CBC Collected: 11/05/2017 Status: F Source: [place] 7:08 PM [facility] REPOSITORY TYPE CODE TESTS RESULT OUT OF [...] #### CBC, BMP #### [facility] [address] [place], [place] [address] BASIC METABOLIC PANL Collected: 11/05/2017 Status: F Source: [place] 7:08 PM [facility] REPOSITORY TYPE CODE TESTS RESULT OUT OF REFERENCE UNITS RANGE LAB GLU 74-99 mg/dL High Glucose 195 Result Comment: The [place] Diabetes Association (ADA) provides guidance for cutoff [...] Standards of Medical Care in Diabetes 2016, [place] Diabetes Association. Diabetes Care. 2016.39(Suppl 1). LAB [...] GFR. Performed By: #### CBC, BMP #### [place] [address] NURSING PROG Observed: 11/05/2017 Status: COMPLETED Source: [place] 5:14 PM [facility] REPOSITORY HNO ID: [id number] Author: Kenisha Sauer) JEFF Ro Service: Nursing Author Type: Registered Nurse Type: [...] CONSULT PROG Observed: 11/05/2017 Status: COMPLETED Source: [place] 12:19 PM [facility] REPOSITORY HNO ID: [id number] Author: Michelle Randhawa (Fel) Service: Hematology/Oncology Author Type: Fellow Type: Consult Progress Note Filed: 11/05/2017 12:24 PM Note Text: ? [facility] DEPARTMENT OF HEMATOLOGIC ONCOLOGY AND BLOOD DISORDERS ? Hematology Consult Follow Up ? ? Patient name: Paloma Cannon : 1990 Date of Service: November 05, 2017 Supervising attending physician: Dr. Keenan ? INTERVAL HISTORY: Transferred from [facility] to [facility] overnight Complains about severe pain in [...] IR guided intervention (initially on 10/23 at [facility] and 10/26 here at [facility]. ? # Antiphospholipid antibody syndrome Extensive [...] Randhawa MD Hematology and Oncology Fellow Pager: [phone] November 05, 2017 12:24 PM PROGRESS Observed: 11/05/2017 Status: COMPLETED Source: [place] 11:34 AM [facility] REPOSITORY HNO ID: [id number] Author: Maria G Haritha Sandi Service: General Internal Medicine Author Type: Resident Type: Progress Notes Filed: 11/05/2017 11:44 AM Note Text: Attestation signed by Krysta Lopez at 11/05/2017 12:35 PM [facility] STAFF PHYSICIAN NOTE OF PERSONAL INVOLVEMENT IN [...] 11/05/2017 TIME of SERVICE: 12:33 PM ? Medicine [place] - Raf Terry Progress Note PATIENT NAME: [...] last 168 hours. BMP: Recent Labs 11/05/1752111/04/17 0511/02/17233911/02/17 0120 11/01/1730110/30/17233710/29/17 2335 GLUC 100* 143* 124* 93 124* [...] 1.18* 1.89* 1.39* 1.25* CHEM: Recent Labs 11/05/1752111/04/1750911/02/17233911/02/1711911/01/1730110/30/17233710/29/172334 ALB -- -- 3.4* 3.6* 3.5* -- -- TPROT -- -- 6.0* 6.0* 5.7* -- -- CA 8.4* 8.6 8.4* 8.4* 8.1* 9.0 9.3 MG 1.7 1.9 1.8 2.0 1.7 2.0 2.2 HEPATIC: Recent Labs 11/04/1750911/02/17233911/02/1711911/01/17 030 ALKPHOS -- 79 75 70 ALT -- [...] IR emobolization of left L3 artery at [place] on 10/23 IR embolization of left L2 [...] contrast, now requiring dialysis First HD at [place] on 10/25 with tunneled dialysis catheter placement [...] this morning, access site for embolization at [place], no erythema or induration appreciated on exam, exquisitely TTP Groin study showed no signs of PSA, known AV fistula visualized with retrograde flow, vascular med aware- no further recs 10/28: pain less severe, no physical exam findings Repeat Leg DVT shows no pseudoaneurysm Likely due to nerve compression/RP hematoma causing compressive symtpoms S/p R groin drain placed at [place] on 4/17 s/p L groin drain placed at [facility] during embolization on 10/26 Plan: - Pain management-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 MANAGER BILLING as of transfer to [facility] - Will continue to wean dilaudid as pt tolerates, currently kept her on Dilaudid 0.4 mg q3h PRN for pain - IR consult for drain evaluation and removal on 11/05 # VTE PPx: IPCs # Diet: Regular # Dispo: Pending clinical course SIGNATURE: Maria G Junior DO PATIENT NAME: Paloma Cannon DATE: November 05, 2017 TIME: 11:34 AM Pager: [phone] Note is not final until addended or cosigned by staff. CBC Collected: 11/05/2017 Status: F Source: [place] 5:22 AM [facility] REPOSITORY TYPE CODE TESTS RESULT OUT OF [...] MG1, PHOS, BMP #### [facility] [place], [place] [address] MAGNESIUM Collected: 11/05/2017 Status: F Source: [place] 5:22 AM [facility] REPOSITORY TYPE CODE TESTS RESULT OUT OF REFERENCE UNITS RANGE LAB MG 1.7-2.3 mg/dL Magnesium 1.7 Performed By: #### CBC, MG1, PHOS, BMP #### [facility] [address] [place], [place] [address] PHOSPHORUS Collected: 11/05/2017 Status: F Source: [place] 5:22 AM [facility] REPOSITORY TYPE CODE TESTS RESULT OUT OF REFERENCE UNITS RANGE LAB PHOS 2.7-4.8 mg/dL Phosphorus 3.4 Performed By: #### CBC, MG1, PHOS, BMP #### [facility] [address] [place], [place] [address] BASIC METABOLIC PANL Collected: 11/05/2017 Status: F Source: [place] 5:22 AM [facility] REPOSITORY TYPE CODE TESTS RESULT OUT OF REFERENCE UNITS RANGE LAB GLU 74-99 mg/dL High Glucose 100 Result Comment: The [place] Diabetes Association (ADA) provides guidance for cutoff [...] Standards of Medical Care in Diabetes 2016, [place] Diabetes Association. Diabetes Care. 2016.39(Suppl 1). LAB [...] MG1, PHOS, BMP #### [facility] [address] [place], [place] [address] CBC Collected: 11/04/2017 Status: F Source: [place] 10:45 PM [facility] REPOSITORY TYPE CODE TESTS RESULT OUT OF [...] By: #### CBC #### [facility] [address] [place], [place] [address] CONSULT PROG Observed: 11/04/2017 Status: COMPLETED Source: [place] 2:30 PM [facility] REPOSITORY HNO ID: [id number] Author: Luz Maria Wolfe Service: Hematology Author Type: Physician Type: Consult Progress Note Filed: 11/04/2017 3:11 PM Note Text: ? [facility] DEPARTMENT OF HEMATOLOGIC ONCOLOGY AND BLOOD DISORDERS ? Hematology Consult Follow Up ? ? Patient name: Paloma Cannon : 1990 Date of Service: 11/04/2017 Supervising attending physician: Dr. Wolfe ? INTERVAL HISTORY: Transferred from [facility] to [facility] overnight Complains about severe pain in the [...] IR guided intervention (initially on 10/23 at [facility] and 10/26 here at [facility]. ? # Antiphospholipid antibody syndrome Extensive [...] MD Fellow, Hematology and Medical Oncology Pager: [phone] Addendum: I have repeated the pertinent features of the history and examination and reviewed appropriate available diagnostics in this patient. I am in agreement with the plan as stated above. I discussed the above plan with the patient and I have answered questions asked by the patient. Pt transferred to [facility] yesterday. Continues on ultrafiltration for fluid removal and renal team evaluating for further ASPHALT ROLLER PERSON on Monday. Hb has stayed stable since [...] issue for her today. Will follow daily. uLz Maria Wolfe MD November 04, 2017 3:10 PM CBC Collected: 11/04/2017 Status: F Source: [place] 12:54 PM [facility] REPOSITORY TYPE CODE TESTS RESULT [...] By: #### CBC #### [facility] [address] [place] [address] DEGRAD PRODUCT Collected: 11/04/2017 Status: F Source: [place] 5:10 AM [facility] REPOSITORY TYPE CODE TESTS RESULT OUT OF REFERENCE UNITS RANGE LAB FDP <10 ug/ml High Degrad Product >40 Performed By: #### FDP, DDMER, FIBCT, MG1, PHOS, BMP, HAPTO, BILIFR, LD6, CBC #### [place] [address] D DIMER Collected: 11/04/2017 Status: F Source: [place] 5:10 AM [facility] REPOSITORY TYPE CODE TESTS RESULT OUT OF [...] PHOS, BMP, HAPTO, BILIFR, LD6, CBC #### [place] [address] [place], [place] [id number] FIBRINOGEN Collected: 11/04/2017 Status: F Source: [place] 5:10 AM [facility] REPOSITORY TYPE CODE TESTS RESULT OUT OF REFERENCE UNITS RANGE LAB FIBCT 200-400 mg/dL Fibrinogen 224 Performed By: #### FDP, DDMER, FIBCT, MG1, PHOS, BMP, HAPTO, BILIFR, LD6, CBC #### [facility] [address] [place] [address] MAGNESIUM Collected: 11/04/2017 Status: F Source: [place] 5:10 AM [facility] REPOSITORY TYPE CODE TESTS RESULT OUT OF REFERENCE UNITS RANGE LAB MG 1.7-2.3 mg/dL Magnesium 1.9 Performed By: #### FDP, DDMER, FIBCT, MG1, PHOS, BMP, HAPTO, BILIFR, LD6, CBC #### [place] [address] PHOSPHORUS Collected: 11/04/2017 Status: F Source: [place] 5:10 AM [facility] REPOSITORY TYPE CODE TESTS RESULT OUT OF REFERENCE UNITS RANGE LAB PHOS 2.7-4.8 mg/dL Phosphorus 3.2 Performed By: #### FDP, DDMER, FIBCT, MG1, PHOS, BMP, HAPTO, BILIFR, LD6, CBC #### [place] [address] BASIC METABOLIC PANL Collected: 11/04/2017 Status: F Source: [place] 5:10 AM [facility] REPOSITORY TYPE CODE TESTS RESULT OUT OF REFERENCE UNITS RANGE LAB GLU 74-99 mg/dL High Glucose 143 Result Comment: The [place] Diabetes Association (ADA) provides guidance for cutoff [...] Standards of Medical Care in Diabetes 2016, [place] Diabetes Association. Diabetes Care. 2016.39(Suppl 1). LAB [...] BILIFR, LD6, CBC #### [facility] [address] [place] [id number] HAPTOGLOBIN Collected: 11/04/2017 Status: F Source: [place] 5:10 AM [facility] REPOSITORY TYPE CODE TESTS RESULT OUT OF REFERENCE UNITS RANGE LAB HAPTO 31-238 mg/dL Low Haptoglobin <10 Performed By: #### FDP, DDMER, FIBCT, MG1, PHOS, BMP, HAPTO, BILIFR, LD6, CBC #### [facility] [address] [place], [place] [address] BILIRUBIN,FRACTION Collected: Status: F Source: [place] 11/04/2017 5:10 AM [facility] REPOSITORY TYPE CODE TESTS RESULT OUT OF REFERENCE UNITS RANGE LAB TBILI 0.0-1.5 mg/dL 1.3 Bilirubin, Total LAB BILU 0.0-1.1 mg/dL 0.9 Bilirubin,Un conjug LAB CBIL <0.2 mg/dL High 0.4 Bilirubin,Co njugated Performed By: #### FDP, DDMER, FIBCT, MG1, PHOS, BMP, HAPTO, BILIFR, LD6, CBC #### [facility] [address] [place], [place] [address] LD Collected: 11/04/2017 Status: F Source: [facility] 5:10 AM [facility] REPOSITORY TYPE CODE TESTS RESULT OUT OF RANGE REFERENCE UNITS LAB LD 135-214 U/L High LD 985 Performed By: #### FDP, DDMER, FIBCT, MG1, PHOS, BMP, HAPTO, BILIFR, LD6, CBC #### [address] [address] CBC Collected: 11/04/2017 Status: F Source: [place] 5:10 AM [facility] REPOSITORY TYPE CODE TESTS RESULT OUT OF [...] PHOS, BMP, HAPTO, BILIFR, LD6, CBC #### [facility] [address] [place], [place] [address] TYPE AND SCREEN Collected: 11/04/2017 Status: F Source: [place] 5:10 AM [facility] REPOSITORY TYPE CODE TESTS RESULT OUT OF REFERENCE UNITS RANGE LAB %ABR B ABO/RH(D) POSITIVE LAB % Antibody POS Screen Performed By: #### TSCR #### [facility] [address] [place], [place] [id number] PROGRESS Observed: 11/04/2017 Status: COMPLETED Source: [place] 4:22 AM [facility] REPOSITORY HNO ID: [id number] Author: Downtime Note Service: (none) Author Type: (none) Type: Progress Notes Filed: 11/04/2017 4:26 AM Note Text: Epic Scheduled Downtime: 11/03/2017 11:34:32 PM to 11/04/2017 4:17:42 AM CBC Collected: 11/03/2017 Status: F Source: [place] 11:28 PM [facility] REPOSITORY TYPE CODE TESTS RESULT OUT OF [...] By: #### CBC #### [facility] [address] [place], [place] [address] NURSING PROG Observed: 11/03/2017 Status: COMPLETED Source: [place] 10:30 PM [facility] REPOSITORY HNO ID: [id number] Author: Duane SanchezRn) JEFF Enriquez Service: (none) Author Type: Registered Nurse Type: Nursing Progress Note Filed: 11/04/2017 4:59 AM Note Text: 0.4 mg Dilaudid wasted with Jose Gaines RN. NURSING PROG Observed: 11/03/2017 Status: COMPLETED Source: [place] 9:48 PM [facility] REPOSITORY HNO ID: [id number] Author: Maritza (Rn) JEFF Figueroa Service: (none) Author Type: Registered Nurse Type: Nursing Progress Note Filed: 11/03/2017 9:48 PM Note Text: Nursing Progress Note Patient Name: Paloma Cannon Patient Location: 80 015/H080-16 Transfer Note: Patient transferred into room/unit 80-16 in stable condition. Actions taken: No futher actions taken at this time. Will continue to monitor and check with patient. This note was completed by: TAMI Moise PLAN OF CARE Observed: 11/03/2017 Status: COMPLETED Source: [place] 7:45 PM [facility] REPOSITORY HNO ID: [id number] Author: Daysi Kohli Service: Critical Care Author Type: Resident Type: Plan of Care Filed: 11/03/2017 7:46 PM Note Text: MICU patient transfer to [facility]. Patient signed out to [employer] night team. Patient to go to [facility]. Daysi Kohli DO HISTORY PHYSICAL Observed: 11/03/2017 Status: COMPLETED Source: [place] 7:27 PM [facility] REPOSITORY HNO ID: [id number] Author: Adin Goldsmith Service: General Internal Medicine Author Type: Resident Type: HANDP Filed: 11/03/2017 10:45 PM Note Text: Attestation signed by Krysta Lopez at 11/04/2017 5:03 PM [facility] ST[facility] PHYSICIAN NOTE OF PERSONAL INVOLVEMENT IN [...] CARE NOTE RAF NIGHT PATIENT GOING TO [employer] [facility] service PATIENT NAME: Paloma Cannon LENGTH OF STAY: 9 HOSPITAL ROOM: [facility] 006/[id number] ; AGE: 7 1990; 27 year old ADMITTING PHYSICIAN: Austen Choudhury DATE OF ADMISSION: 10/25/2017 11:13 PM SERVICE - Raf SIDDIQUI PCP: PEYTON ROGERS MD CC: RP Bleed [...] peripheral neuropathy She was recently discharged from [facility] (10/22) after her 6th episode of respiratory failure requiring mechanical ventilation, was discharged on 2L NC oxygen. During her hospitalization, she had c/o left foot numbness and pain that was managed conservatively. (She was on fondaparinaux while hospitalized and coumadin was held) On 10/23, she presented to [facility] with stabbing left sided abdominal and back pain radiating to both left arm and legs. A CT abdomen was done which showed an extensive Left retroperitoneal hemorrhage with mass effect on the left kidney, with hemorrhage along the mesentery and spleen. She was admitted to [place] ICU as ICU was full and was [...] on 10/25. She was then transferred to [facility] MICU on bed availability for further care. [...] on top of 7 U PRBC in [place]. Hematology was also consulted who recommended on [...] Her pain was being controlled with dilaudid MANAGER BILLING, now changed to iv dilaudid with PO oxycodone. She was also hypertensive and is on Amlodipine 10 mg and coreg 6.25 mg BID. On arrival to the floor, her Hb was 10K, Plt-33K, WBC-12 K Still c/o of a lot of pain in LLE with numbness, was on MANAGER BILLING dilaudid until this AM. Endorses cough with [...] the last 168 hours. BMP: Recent Labs 11/02/17233911/02/1711911/01/1730110/30/17233710/29/17233410/28/17235110/28/17 0401 GLUC 124* 93 124* 107* 115* [...] 1.39* 1.25* 1.31* 1.67* CHEM: Recent Labs 11/02/17233911/02/1711911/01/1730110/30/17233710/29/17233410/28/17235110/28/17 0401 ALB 3.4* 3.6* 3.5* -- -- -- -- TPROT 6.0* 6.0* 5.7* -- -- -- -- CA 8.4* 8.4* 8.1* 9.0 9.3 8.7 8.6 MG 1.8 2.0 1.7 2.0 2.2 1.9 2.0 HEPATIC: Recent Labs 11/02/17233911/02/1711911/01/17 030 ALKPHOS 79 75 70 ALT 32 37 [...] neuropathy, post-thrombotic syndrome, and was transferred from [place] for ongoing L RP bleeding s/p L2,L3 embolization X2, 16 U PRBC total, undergoing dialysis due to volume overload and had 1 session of Apharesis per hematology. She was also found to have Moraxella catarrhalis pneumonia and was treated with Ceftriaxone 10/27-11/03 (completed 7 day course). Major Interval Events: 10/26: Transferred from [place]. Hgb down to 5.5. CTA showing active [...] IR emobolization of left L3 artery at [place] on 10/23 IR embolization of left L2 [...] contrast, now requiring dialysis First HD at [place] on 10/25 with tunneled dialysis catheter placement [...] this morning, access site for embolization at [place], no erythema or induration appreciated on exam, exquisitely TTP Groin study showed no signs of PSA, known AV fistula visualized with retrograde flow, vascular med aware- no further recs 10/28: pain less severe, no physical exam findings Repeat Leg DVT shows no pseudoaneurysm Likely due to nerve compression/RP hematoma causing compressive symtpoms Plan: Pain management-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 MANAGER BILLING today Wean of dilaudid slowly, currently kept [...] 03, 2017 TIME: 7:30 PM PAGER/CONTACT #: [phone] These recommendations are not final until staffed by attending provider. CBC Collected: 11/03/2017 Status: F Source: [place] 5:25 PM [facility] REPOSITORY TYPE CODE TESTS RESULT OUT OF [...] By: #### CBC #### [facility] [address] [place], [place] [address] CONSULT PROG Observed: 11/03/2017 Status: COMPLETED Source: [place] 4:06 PM [facility] REPOSITORY HNO ID: [id number] Author: Luz Maria Wolfe Service: Hematology Author Type: Physician Type: Consult Progress Note Filed: 11/03/2017 5:14 PM Note Text: ? [facility] DEPARTMENT OF HEMATOLOGIC ONCOLOGY AND BLOOD DISORDERS [...] IR guided intervention (initially on 10/23 at [facility] and 10/26 here at [facility]. ? # Antiphospholipid antibody syndrome Extensive [...] MD Fellow, Hematology and Medical Oncology Pager: [phone] Addendum: I have repeated the pertinent features [...] THERAPY NT Observed: 11/03/2017 Status: COMPLETED Source: [place] 3:47 PM [facility] REPOSITORY HNO ID: [id number] Author: Tamiko SanchezOt/LDevonte Nelson Service: Occupational Therapy Author Type: Occupational Therapist Type: Therapy (PT/OT/Speech/Resp) Filed: 11/03/2017 3:47 PM Note Text: OCCUPATIONAL THERAPY MISSED VISIT SERVICE DATE: 11/03/2017 SERVICE TIME: 1547 to 1547 ROOM: [place] [address] Attempted Treatment. Patient not seen due to Test/Procedure, IHD at bedside, Will re-attempt as able. SIGNATURE: Tamiko Nelson OT/Allie PATIENT NAME: Paloma Cannon DATE: November 03, 2017 TIME: 3:47 PM PAGER/CONTACT #:[phone] THERAPY NT Observed: 11/03/2017 Status: COMPLETED Source: [place] 2:23 PM [facility] REPOSITORY HNO ID: [id number] Author: Brenda SanchezPtDevonte Meraz Service: Physical Therapy Author Type: Physical Therapist Type: Therapy (PT/OT/Speech/Resp) Filed: 11/03/2017 2:24 PM Note Text: PHYSICAL THERAPY MISSED VISIT SERVICE DATE: 11/03/2017 SERVICE TIME: 1405 to 1405 ROOM: [place] [address] (DAREK APHERESIS MAIN (M12 Plasma)) Attempted Treatment. Patient not seen due to Another service at bedside. IHD at bedside. Will check back as able SIGNATURE: Brenda Meraz PT PATIENT NAME: Paloma Cannon DATE: November 03, 2017 TIME: 2:23 PM PAGER/CONTACT #: [phone] , CBC Collected: 11/03/2017 Status: F Source: [place] 12:43 PM [facility] REPOSITORY TYPE CODE TESTS RESULT OUT OF [...] By: #### CBC #### [facility] [address] [place] [address] THERAPY NT Observed: 11/03/2017 Status: COMPLETED Source: [place] 12:28 PM [facility] REPOSITORY HNO ID: [id number] Author: Tamiko (Pt) Adelaida Service: Physical Therapy Author Type: Physical Therapist Type: Therapy (PT/OT/Speech/Resp) Filed: 11/03/2017 12:36 PM Note Text: Physical Therapy Wound/Lymph Treatment SERVICE DATE: 11/03/2017 SERVICE TIME: 1105 to 1130 ROOM: [place] [address] ([facility] APHERESIS MAIN (M12 Plasma)) Recommended Discharge [...] Patient TREATMENT INTERVENTIONS: Interventions Provided: Manual Therapy (17876) Manual Therapy (52140) Treatment Minutes: 25 2 units Skilled Intervention: [...] 03, 2017 TIME: 12:28 PM PAGER/CONTACT #: [phone] CASE MANAGEM Observed: 11/03/2017 Status: COMPLETED Source: [place] 9:53 AM [facility] [place] REPOSITORY HNO ID: [id number] Author: Lisseth Coto (Sw) Service: Case Management Author Type: Painting Department Supervisor Type: Care Mgt Progress Note Filed: 11/03/2017 9:54 AM Note Text: CARE MANAGEMENT PROGRESS NOTE SERVICE DATE: 11/03/2017 SERVICE TIME: 9:53 AM LOS: 9 days Needs Prior to Discharge: To Be Determined Pain better controlled. Plan on RNF after dialysis today, transfuse as needed pending CBC. Plan for apheresis today. senior controls technician AR. ERIKA attempted to meet with pt and discuss AR, however apheresis tech at bedside working with pt. ERIKA will attempt to follow up this afternoon. SIGNATURE: JUAN PABLO Romo PATIENT NAME: Paloma Cannon DATE: November 03, 2017 TIME: 9:53 AM PAGER/CONTACT #: [phone] PROGRESS Observed: 11/03/2017 Status: COMPLETED Source: [place] 9:27 AM [facility] REPOSITORY HNO ID: [id number] Author: Austen Choudhury Service: Critical Care Author Type: Physician Type: Progress Notes Filed: 11/03/2017 11:19 AM Note Text: SERVICE DATE: 11/03/2017 SERVICE TIME: 9:27 AM MICU PROGRESS NOTE Admission Date: 10/25/2017 Hospital Day # 9 SUBJECTIVE Interval HPI: Improved reports more movement in left leg compared to yesterday pain is somewhat better using MANAGER BILLING less, basal rate has been off x24 hours OBJECTIVE Vital Signs (last filed) Range in last 24h Temp: 37.6 ?C (99.7 ?F) (11/03/17 0400) Temp Min: 36.4 ?C (97.6 ?F) Max: 37.6 ?C (99.7 ?F) Pulse: 101 (11/03/17 0900) Pulse Min: 79 Max: 103 Resp: 23 (11/03/17899) Resp Min: 14 Max: 33 BP: 161/88 (11/03/17 0900) BP Min: 137/78 Max: 182/92 MAP Non Invasive (Mean Arterial Pressure): 116 (11/03/17 09) MAP Non Invasive (Mean Arterial Pressure) Min: 98 Max: 130 No Data Recorded SpO2: 97 % (11/03/17 09) SpO2 Min: 93 % Max: 100 % Pain Score: 0/10 (11/03/17 0845) Fluid Balance: Intake/Output Summary (Last 24 hours) at 11/03/17 0659 Last data filed at 11/03/17 06 Gross per 24 hour Intake 2635 ml [...] Awake, oriented, Follows commands Infusion Medications HYDROmorphone MANAGER BILLING 0.5 mg/mL NaCl 0.9% Last Rate: 30 [...] neuropathy, post-thrombotic syndrome, and was transferred from [place] for ongoing L RP bleeding. Major Interval Events: 10/26: Transferred from [place]. Hgb down to 5.5. CTA showing active [...] >30 - continue PO oxycodone, wean dilaudid MANAGER BILLING - Hold anticoagulation - Monitor respiratory status - IHD - apheresis today - Increase coreg - DVT scan - PT/OT - Transfer to [facility] after dialysis - Plan discussed with [...] this morning, access site for embolization at [place], no erythema or induration appreciated on exam, [...] IR emobolization of left L3 artery at [place] on 10/23 IR embolization of left L2 [...] contrast, now requiring dialysis First HD at [place] on 10/25 with tunneled dialysis catheter placement [...] Patient, ICU Team and RN SIGNATURE: Daysi Garcaí APRN.CNP PATIENT NAME: Paloma Cannon DATE: November 03, 2017 TIME: 9:27 AM PAGER/CONTACT #: [phone] [facility] ST[facility]FF PHYSICIAN NOTE OF PERSONAL INVOLVEMENT IN [...] as tolerated. Continue oral analgesics to lower MANAGER BILLING pump.? PT ?? Patient/Family Updated:?Pt was updated. [...] ?? SIGNATURE: Austen Choudhury MD [facility] PAGER:[phone] November 03, 2017 PROCEDURE Observed: 11/03/2017 Status: COMPLETED Source: [place] 9:04 AM [facility] REPOSITORY O ID: [id number] Author: Zahar Wallace Service: Apheresis Author Type: Physician Type: [...] double lumen catheter. PRE-MEDICATION diphenhydramine 50mg IV Time:924 TREATMENT PARAMETER DATA Whole blood processed: 6300 [...] Completed by Apheresis Nurse: Angella Ortiz RN [facility] ST[facility] PHYSICIAN NOTE OF PERSONAL INVOLVEMENT IN CARE No blood transfusion for a few days. She feels better also. Note plans to transfer to [facility]. On dialysis and IUF alternating. I [...] MD November 03, 2017 11:03 AM Pager: [phone] CONSULT PROG Observed: 11/03/2017 Status: COMPLETED Source: [place] 8:21 AM [facility] REPOSITORY HNO ID: [id number] Author: Laya Peters (Fel) Service: Nephrology Author [...] mg INTRAVENOUS q 4 H PRN HYDROmorphone MANAGER BILLING 0.5 mg/mL in NaCl 0.9% 100 mL [...] 3 sec to renal vein thrombosis requiring ASPHALT ROLLER PERSON since 10/26/2017 -Baseline Cr 1.2 to 1.5 [...] medications for eGFR <10 mL/min Consent for ASPHALT ROLLER PERSON: ASPHALT ROLLER PERSON initiation date: 10/26/17 Consent obtained and in EMR. Will discuss with staff SIGNATURE: Laya Peters MD PATIENT NAME: Paloma Cannon DATE: November 03 2017 TIME: 8:30 AM PAGER: [phone] TEACHING PHYSICIAN NOTE OF PERSONAL INVOLVEMENT IN [...] FABY, mass effect on kidney - On ASPHALT ROLLER PERSON since 10/26 ? #. Stage III CKD [...] BID. Vini Toledo MD, FASN - Pager [phone] November 03, 2017 @ 10:03 AM CBC Collected: 11/03/2017 Status: F Source: [place] 6:35 AM [facility] REPOSITORY TYPE CODE TESTS RESULT OUT OF [...] By: #### CBC #### [facility] [address] [place] [address] COMP METABOLIC PANEL Collected: 11/02/2017 Status: F Source: [place] 11:40 PM [facility] REPOSITORY TYPE CODE TESTS RESULT OUT OF REFERENCE UNITS RANGE LAB TP 6.3-8.0 g/dL Low Protein, Total 6.0 LAB ALB 3.9-4.9 g/dL Low Albumin 3.4 LAB CA 8.5-10.2 mg/dL Low Calcium, Total 8.4 LAB TBIL 0.2-1.3 mg/dL Bilirubin, Total 1.2 LAB ALKP 32-117 U/L Alkaline Phosphatase 79 LAB AST 13-35 U/L AST 34 LAB GLU 74-99 mg/dL Glucose High 124 Result Comment: The [place] Diabetes Association (ADA) provides guidance for cutoff [...] Standards of Medical Care in Diabetes 2016, [place] [employer]. Diabetes Care. 2016.39(Suppl 1). LAB [...] MG1, PHOS, CBC #### [facility] [address] [place] [address] MAGNESIUM Collected: 11/02/2017 Status: F Source: [place] 11:40 PM [facility] REPOSITORY TYPE CODE TESTS RESULT OUT OF REFERENCE UNITS RANGE LAB MG 1.7-2.3 mg/dL Magnesium 1.8 Performed By: #### CMP, MG1, PHOS, CBC #### [facility] [address] [place], [place] [address] PHOSPHORUS Collected: 11/02/2017 Status: F Source: [place] 11:40 PM [facility] REPOSITORY TYPE CODE TESTS RESULT OUT OF REFERENCE UNITS RANGE LAB PHOS 2.7-4.8 mg/dL Phosphorus 3.1 Performed By: #### CMP, MG1, PHOS, CBC #### [place] [address] [place], [place] [address] CBC Collected: 11/02/2017 Status: F Source: [place] 11:40 PM [facility] REPOSITORY TYPE CODE TESTS RESULT OUT OF [...] By: #### CMP, MG1, PHOS, CBC #### [facility] [address] [place], [place] [id number] CBC Collected: 11/02/2017 Status: F Source: [place] 6:25 PM [facility] REPOSITORY TYPE CODE TESTS RESULT OUT OF [...] No call per procedure. 11/02/17 1906 A [place] [facility] MPV 9.0-12.7 fL MPV <<DO NOT REPORT>> LAB ABSNUC <0.01 k/uL 0.11 High Absolute nRBC Performed By: #### CBC #### [facility] [address] [place] [address] ALLIED HEALTH Observed: 11/02/2017 Status: COMPLETED Source: [place] 5:07 PM [facility] REPOSITORY HNO ID: [id number] Author: Negrito Kelley (Therapist) Miranda Service: Art Therapy Author Type: Therapist Type: Allied Health Filed: 11/02/2017 5:11 PM Note Text: ART THERAPY NOTE SERVICE DATE: 11/02/2017 SERVICE TIME: 4:20 Referred By: PT Reason for Referral: anxious COMMENTS: Consult was received and appreciated. Pt unavailable upon attempt as another service was bedside. Will follow up as able. SIGNATURE: Negrito Jean, [facility] PATIENT NAME: Paloma Cannon DATE: November 02, 2017 TIME: 5:08 PM PAGER/CONTACT #: [phone] CONSULT PROG Observed: 11/02/2017 Status: COMPLETED Source: [place] 2:41 PM [facility] [facility] REPOSITORY HNO ID: [id number] Author: Aj Keenan Service: Hematology Author Type: Physician Type: Consult Progress Note Filed: 11/02/2017 3:45 PM Note Text: ? [facility] DEPARTMENT OF HEMATOLOGIC ONCOLOGY AND BLOOD DISORDERS [...] mg INTRAVENOUS q 4 H PRN HYDROmorphone MANAGER BILLING 0.5 mg/mL in NaCl 0.9% 100 mL [...] IR guided intervention (initially on 10/23 at [facility] and 10/26 here at [facility]. ? # Antiphospholipid antibody syndrome Extensive [...] MD Fellow, Hematology and Medical Oncology Pager: [phone] STAFF ADDENDUM: I have reviewed the history, [...] of plasma [place]. [phone] NUTRITION Observed: 11/02/2017 Status: COMPLETED Source: [place] 12:35 PM [facility] MA[facility] [place] REPOSITORY O ID: [id number] Author: Edel Guillen Service: NST-Nutrition Support Team [...] neuropathy, post-thrombotic syndrome, and was transferred from [place] for ongoing L RP bleeding. ? Interval [...] Since admit: (11/02) po intake varies per [facility] documentation but ate 50- 100% x 3meals [...] since admit with diuresis Last wts in [facility]: 10/13/17 : 104 kg (229 lb 4.5 [...] (257 lb 15 oz) 10/18/2016 ?114.306 kg? [place] body weight 52.3 kg Estimated kilocalorie needs: 7985-8064?kilocalories determined by 25-30?kcal/kg ideal body weight Estimated protein needs: 78-105?grams determined by 1.5-2.0 g/kg?[place]?weight Estimated fluid needs: per MD NUTRITION FOCUSED [...] mg INTRAVENOUS q 4 H PRN HYDROmorphone MANAGER BILLING 0.5 mg/mL in NaCl 0.9% 100 mL [...] 8:00 AM Number of days:6 Surgical Incision 10/26/172046 Groin - Right (Active) Dressing Status Intact [...] 3 units SIGNATURE: Edel Guillen, RD, LD, CNSC PATIENT NAME: Paloma Cannon DATE: November 02, 2017 TIME: 12:36 PM PAGER: [phone] THERAPY NT Observed: 11/02/2017 Status: COMPLETED Source: [place] 11:54 AM [facility] REPOSITORY O ID: [id number] Author: Brenda (Pt) Kt Service: Physical Therapy Author Type: Physical Therapist Type: Therapy (PT/OT/Speech/Resp) Filed: 11/02/2017 11:58 AM Note Text: Physical Therapy Treatment SERVICE DATE: 11/02/2017 SERVICE TIME: 1015 to 1054 ROOM: [place] [address] ([facility] ([facility] Vasc/Ultrasound)) Recommended Discharge Disposition: Acute Rehab [...] Diagnosis: Reduced mobility-other Interventions Provided: Therapeutic Activity (14252) Therapeutic Activity (73595) Treatment Minutes: 39 3 units Skilled Intervention(s):Education [...] 02, 2017 TIME: 11:54 AM PAGER/CONTACT #: [phone] CBC Collected: 11/02/2017 Status: F Source: [place] 11:45 AM CL[facility]IC [facility]AMP[facility] REPOSITORY TYPE CODE [...] By: #### CBC #### [facility] [address] [place], [place] [address] PLAN OF CARE Observed: 11/02/2017 Status: COMPLETED Source: [place] 9:52 AM [facility] REPOSITORY HNO ID: [id number] Author: Christina Acuna Service: Neurology Author Type: [...] important that she receives early mobilization and intermediate card tender PT. No further intervention. -> Please feel free to call us [phone] if patient worsens. -> Given duration of symptoms low yield for EMG at this time. Will set up outpatient EMG in 3 weeks. -> Will set up outpatient followup. -> Plan discussed with Daysi García. Christina Acuna MD PGY-4 Neurology Resident [phone] November 02, 2017 9:57 AM PROGRESS Observed: 11/02/2017 Status: COMPLETED Source: [place] 8:35 AM [facility] REPOSITORY O ID: [id number] Author: Austen Choudhury Service: Critical Care Author [...] Min: 13 Max: 31 BP: 170/81 (11/02/17 08) BP Min: 134/67 Max: 179/90 MAP Non Invasive (Mean Arterial Pressure): 116 (11/02/17 0800) MAP Non Invasive (Mean Arterial Pressure) Min: 92 Max: 144 No Data Recorded SpO2: 97 % (11/02/17 08) SpO2 Min: 93 % Max: 100 % Pain Score: Pt. Sleeping (Do Not Use With MANAGER BILLING Meds) (11/02/17 0800) Fluid Balance: Intake/Output Summary [...] and Moving all extremities Infusion Medications HYDROmorphone MANAGER BILLING 0.5 mg/mL NaCl 0.9% Last Rate: 30 mL/hr (11/02/17 0800) Diagnostic tests reviewed today: Most recent labs [...] neuropathy, post-thrombotic syndrome, and was transferred from [place] for ongoing L RP bleeding. Major Interval Events: 10/26: Transferred from [place]. Hgb down to 5.5. CTA showing active [...] >30 - continue PO oxycodone, wean off MANAGER BILLING pump - Hold anticoagulation - Monitor respiratory [...] this morning, access site for embolization at [place], no erythema or induration appreciated on exam, [...] IR emobolization of left L3 artery at [place] on 10/23 IR embolization of left L2 [...] contrast, now requiring dialysis First HD at [place] on 10/25 with tunneled dialysis catheter placement [...] 02, 2017 TIME: 8:35 AM PAGER/CONTACT #: [phone] [facility] STAFF PHYSICIAN NOTE OF PERSONAL INVOLVEMENT IN [...] s/p IVC filter. Persistent abdominal pain on MANAGER BILLING pump. On 2 L/min of O2. Moraxella [...] as tolerated. Continue oral analgesics to lower MANAGER BILLING pump. Pending final interpretation of peripheral blood [...] ?? SIGNATURE: Austen Choudhury MD [facility] PAGER:[phone] November 02, 2017 CONSULT PROG Observed: 11/02/2017 Status: COMPLETED Source: [place] 7:30 AM [facility] REPOSITORY HNO ID: [id number] Author: Vini Toledo MD Service: Nephrology Author [...] mg INTRAVENOUS q 4 H PRN HYDROmorphone MANAGER BILLING 0.5 mg/mL in NaCl 0.9% 100 mL [...] anuric CAPRICE on CKD stage 3 requiring ASPHALT ROLLER PERSON since 10/26/2017 Baseline Cr 1.2 to 1.5 [...] of 2 to 2.5L -Will assess for ASPHALT ROLLER PERSON needs on a daily basis -Next treatment on Monday - Strict I/O's - Renal diet - Dose medications for eGFR <10 mL/min Consent for ASPHALT ROLLER PERSON: ASPHALT ROLLER PERSON initiation date: 10/26/17 Consent obtained and in EMR. Will discuss with staff SIGNATURE: Laya Peters MD PATIENT NAME: Paloma Cannon DATE: November 02, 2017 TIME: 7:37 AM PAGER: [phone] TEACHING PHYSICIAN NOTE OF PERSONAL INVOLVEMENT IN [...] dialysis/IUF. Vini Toledo MD, FASN - Pager [phone] November 02, 2017 @ 7:59 AM CBC Collected: 11/02/2017 Status: F Source: [place] 6:20 AM [facility] REPOSITORY TYPE CODE TESTS RESULT OUT OF [...] nRBC 0.23 Performed By: #### CBC #### [facility] [address] [place], [place] [address] CBC Collected: 11/02/2017 Status: F Source: [place] 1:20 AM [facility] REPOSITORY TYPE CODE TESTS RESULT OUT OF [...] CMP, MG1, PHOS #### [facility] [address] [place], [place] [address] COMP METABOLIC PANEL Collected: 11/02/2017 Status: F Source: [place] 1:20 AM [facility] [place] REPOSITORY TYPE CODE TESTS RESULT OUT OF [...] 74-99 mg/dL Glucose 93 Result Comment: The [place] Diabetes Association (ADA) provides guidance for cutoff [...] Standards of Medical Care in Diabetes 2016, [place] [employer]. Diabetes Care. 2016.39(Suppl 1). LAB [...] CMP, MG1, PHOS #### [facility] [address] [place] [address] MAGNESIUM Collected: 11/02/2017 Status: F Source: [place] 1:20 AM [facility] REPOSITORY TYPE CODE TESTS RESULT OUT OF REFERENCE UNITS RANGE LAB MG 1.7-2.3 mg/dL Magnesium 2.0 Performed By: #### CBC, CMP, MG1, PHOS #### [facility] [address] [place] [address] PHOSPHORUS Collected: 11/02/2017 Status: F Source: [place] 1:20 AM [facility] REPOSITORY TYPE CODE TESTS RESULT OUT OF REFERENCE UNITS RANGE LAB PHOS 2.7-4.8 mg/dL Low Phosphorus 2.1 Performed By: #### CBC, CMP, MG1, PHOS #### [facility] [address] [place] [address] CBC Collected: 11/01/2017 Status: F Source: [place] 5:40 PM [facility] REPOSITORY TYPE CODE TESTS RESULT OUT OF [...] By: #### CBC #### [facility] [address] [place], [place] [address] BUN, POST DIALYSIS Collected: 11/01/2017 Status: F Source: [place] 5:02 PM [facility] REPOSITORY TYPE CODE TESTS RESULT OUT OF REFERENCE UNITS RANGE LAB BUNPO 7-21 mg/dL BUN, Post Dialysis 17 LAB BUNRAT % Urea Reduction Ratio 62 Performed By: #### BUNPO1 #### [facility] [address] [place] [address] BUN, PRE DIALYSIS Collected: 11/01/2017 Status: F Source: [place] 1:19 PM [facility] REPOSITORY TYPE CODE TESTS RESULT OUT OF REFERENCE UNITS RANGE LAB BUNPR 7-21 mg/dL High BUN, Pre 45 Dialysis Performed By: #### BUNPR #### [address] [address] PROGRESS Observed: 11/01/2017 Status: COMPLETED Source: [place] 10:55 AM [facility] REPOSITORY HNO ID: [id number] Author: Christine Almaguer) Denise Service: Critical Care Author Type: Physician Farm Management Agent Type: Progress Notes Filed: 11/01/2017 10:57 AM [...] 75 Max: 113 Resp: (!) 31 (11/01/17 0900) Resp Min: 12 Max: 31 BP: 169/85 [...] 102.8 kg (226 lb 10.1 oz) (11/01/17 0600) Admit Weight: 112.2 kg (247 lb [...] and Moving all extremities Infusion Medications HYDROmorphone MANAGER BILLING 0.5 mg/mL NaCl 0.9% Last Rate: 10 [...] Peripheral neuropathy - post-thrombotic syndrome Transferred from [place] for ongoing L RP bleeding. Major Interval Events: 10/26: Transferred from [place]. Hgb down to 5.5. CTA showing active [...] >30 - Start PO oxycodone, wean off MANAGER BILLING pump - Hold anticoagulation - Monitor respiratory [...] contrast, now requiring dialysis First HD at [place] on 10/25 with tunneled dialysis catheter placement [...] IR emobolization of left L3 artery at [place] on 10/23 IR embolization of left L2 [...] this morning, access site for embolization at [place], no erythema or induration appreciated on exam, [...] 01, 2017 TIME: 10:55 AM PAGER/CONTACT #: [phone] TYPE AND SCREEN Collected: 11/01/2017 Status: F Source: [place] 10:25 AM [facility] REPOSITORY TYPE CODE TESTS RESULT OUT OF REFERENCE UNITS RANGE LAB %ABR B ABO/RH(D) POSITIVE LAB % Antibody POS Screen Performed By: #### TSCR #### [facility] [address] [place] [address] CBC Collected: 11/01/2017 Status: F Source: [place] 10:07 AM [facility] REPOSITORY TYPE CODE TESTS RESULT OUT OF [...] By: #### CBC #### [facility] [address] [place] [id number] CONSULT PROG Observed: 11/01/2017 Status: COMPLETED Source: [place] 9:50 AM [facility] REPOSITORY HNO ID: [id number] Author: Aj Keenan Service: Hematology Author Type: Physician Type: Consult Progress Note Filed: 11/01/2017 5:04 PM Note Text: ? [facility] DEPARTMENT OF HEMATOLOGIC ONCOLOGY AND BLOOD DISORDERS [...] mg INTRAVENOUS q 4 H PRN HYDROmorphone MANAGER BILLING 0.5 mg/mL in NaCl 0.9% 100 mL [...] IR guided intervention (initially on 10/23 at [facility] and 10/26 here at [facility]. ? # Antiphospholipid antibody syndrome Extensive [...] MD Fellow, Hematology and Medical Oncology Pager: [phone] STAFF ADDENDUM: I have reviewed the history, [...] support as [place]. [phone] THERAPY NT Observed: 11/01/2017 Status: COMPLETED Source: [place] 9:28 AM [facility] REPOSITORY HNO ID: [id number] Author: Brenda (Pt) Kt Service: Physical Therapy Author Type: Physical Therapist Type: Therapy (PT/OT/Speech/Resp) Filed: 11/01/2017 9:34 AM Note Text: Physical Therapy Treatment SERVICE DATE: 11/01/2017 SERVICE TIME: 852 to 916 ROOM: [place] [address] Recommended Discharge Disposition: Acute Rehab Due to [...] Diagnosis: Reduced mobility-other Interventions Provided: Therapeutic Exercise (62976) Therapeutic Exercise (50439) Treatment Minutes: 24 2 units Skilled Intervention(s): [...] the patient scored a 2 on the JH-HLM. Explanations are noted in [...] 01, 2017 TIME: 9:28 AM PAGER/CONTACT #: [phone] THERAPY NT Observed: 11/01/2017 Status: COMPLETED Source: [place] 9:24 AM [facility] REPOSITORY [facility] ID: [id number] Author: Brenda Meraz Service: Physical Therapy Author Type: Physical Therapist Type: Therapy (PT/OT/Speech/Resp) Filed: 11/01/2017 9:27 AM Note Text: Physical Therapy Treatment SERVICE DATE: 11/01/2017 SERVICE TIME: 809 to 824 ROOM: [place] [address] Recommended Discharge Disposition: Acute Rehab Due to [...] Diagnosis: Reduced mobility-other Interventions Provided: Therapeutic Activity (27145) Therapeutic Activity (31262) Treatment Minutes: 15 1 unit Skilled Intervention(s): [...] G CODE: PT 6 Clicks Score: 10 (11/01/1710) Mobility: Walking and Moving Around Current Status [...] 01, 2017 TIME: 9:24 AM PAGER/CONTACT #: [phone] PROGRESS Observed: 11/01/2017 Status: COMPLETED Source: [place] 9:09 AM [facility] REPOSITORY HNO ID: [id number] Author: Austen Choudhury Service: Critical Care Author Type: Physician Type: Progress Notes Filed: 11/01/2017 9:12 AM Note Text: [facility] STAFF PHYSICIAN NOTE OF PERSONAL INVOLVEMENT IN CARE I have reviewed the progress note?obtained and documented by the physician cement tester assistant?and I personally participated in the fernandes [...] s/p IVC filter. Persistent abdominal pain on MANAGER BILLING pump (using it less after bowel movements). [...] as tolerated. Start oral analgesics to lower MANAGER BILLING pump. Peripheral blood smear. Discuss with hematology [...] ?? SIGNATURE: Austen Choudhury MD [facility] PAGER:[phone] November 01, 2017 CONSULT PROG Observed: 11/01/2017 Status: COMPLETED Source: [place] 7:19 AM [facility] REPOSITORY O ID: [id number] Author: Vini Toledo MD Service: Nephrology Author [...] mg INTRAVENOUS q 4 H PRN HYDROmorphone MANAGER BILLING 0.5 mg/mL in NaCl 0.9% 100 mL [...] anuric CAPRICE on CKD stage 3 requiring ASPHALT ROLLER PERSON since 10/26/2017 Baseline Cr 1.2 to 1.5 [...] medications for eGFR <10 mL/min Consent for ASPHALT ROLLER PERSON: ASPHALT ROLLER PERSON initiation date: 10/26/17 Consent obtained and in EMR. Will discuss with staff SIGNATURE: Laya Peters MD PATIENT NAME: Paloma Cannon DATE: November 01, 2017 TIME: 7:21 AM PAGER: [phone] TEACHING PHYSICIAN NOTE OF PERSONAL INVOLVEMENT IN [...] tomorrow Vini Toledo MD, FASN - Pager [phone] November 01, 2017 @ 9:41 AM CBC Collected: 11/01/2017 Status: F Source: [place] 3:02 AM [facility] REPOSITORY TYPE CODE TESTS RESULT [...] CMP, MG1, PHOS #### [facility] [address] [place], [place] [address] COMP METABOLIC PANEL Collected: 11/01/2017 Status: F Source: [place] 3:02 AM [facility] [place] REPOSITORY TYPE CODE TESTS RESULT OUT OF [...] mg/dL Glucose High 124 Result Comment: The [place] Diabetes Association (ADA) provides guidance for cutoff [...] Standards of Medical Care in Diabetes 2016, [place] Diabetes [employer]. Diabetes Care. 2016.39(Suppl 1). LAB [...] CMP, MG1, PHOS #### [facility] [address] [place] [address] MAGNESIUM Collected: 11/01/2017 Status: F Source: [place] 3:02 AM [facility] REPOSITORY TYPE CODE TESTS RESULT OUT OF REFERENCE UNITS RANGE LAB MG 1.7-2.3 mg/dL Magnesium 1.7 Performed By: #### CBC, CMP, MG1, PHOS #### [facility] [address] [place], [place] [address] PHOSPHORUS Collected: 11/01/2017 Status: F Source: [place] 3:02 AM [facility] REPOSITORY TYPE CODE TESTS RESULT OUT OF REFERENCE UNITS RANGE LAB PHOS 2.7-4.8 mg/dL Phosphorus 3.0 Performed By: #### CBC, CMP, MG1, PHOS #### [facility] [address] [place], [place] [address] STAFF REV W CBCDIF Collected: 10/31/2017 Status: F Source: [place] 6:33 PM [facility] REPOSITORY TYPE CODE TESTS RESULT OUT OF [...] Abs Lymph 0.17 Low LAB AMONO % Hughes% 3.0 LAB AAMONO <0.87 k/uL Abs Hughes 0.50 LAB AEOS % Eosin% 1.0 LAB [...] Pathologist Reviewed by Gabriel Garcia M.D., Ph.D ([id number]) Performed By: #### STREV #### [facility] [address] [place] [address] CT ABD/PEL WO IVCON Observed: 10/31/2017 Status: F Source: [place] 3:20 PM [facility] REPOSITORY * * *Final Report* * * DATE OF EXAM: Oct 31 2017 3:20PM [facility] 0531 - CT ABD/PEL WO IVCON / [...] PERSISTENT NONSPECIFIC DIFFUSE GROUNDGLASS ATTENUATION, PROBABLY EDEMA. Pie Topper: MURTAZA Transcribe Date/Time: Oct 31 2017 3:57P Dictated by : SANCHEZ WHITE MD This examination was interpreted and the report reviewed and electronically signed by: TARIK PENG MD on Oct 31 2017 5:44PM EST [id number] PROGRESS Observed: 10/31/2017 Status: COMPLETED Source: [place] 3:17 PM [facility] REPOSITORY HNO ID: [id number] Author: ROXY Solorio (Ct) Service: Radiology Author Type: Clinical [employer] Machine Operator Type: Progress Notes Filed: 10/31/2017 3:17 PM [...] PM HAPTOGLOBIN Collected: 10/31/2017 Status: F Source: [place] 12:52 PM [facility] REPOSITORY TYPE CODE TESTS RESULT OUT OF REFERENCE UNITS RANGE LAB HAPTO 31-238 mg/dL Low Haptoglobin <10 Performed By: #### HAPTO, LD6 #### [facility] [address] [place] [id number] LD Collected: 10/31/2017 Status: F Source: [facility] 12:52 PM MAIN [place] REPOSITORY TYPE CODE TESTS RESULT OUT OF RANGE REFERENCE UNITS LAB LD 135-214 U/L High LD 1730 Performed By: #### HAPTO, LD6 #### [facility] [address] [place] [address] BUN, POST DIALYSIS Collected: 10/31/2017 Status: F Source: [place] 12:43 PM [facility] REPOSITORY TYPE CODE TESTS RESULT OUT OF REFERENCE UNITS RANGE LAB BUNPO 7-21 mg/dL BUN, 36 High Post Dialysis LAB BUNRAT % Urea Reduction Ratio Unable to Calculate Performed By: #### BUNPO1 #### [facility] [address] [place] [id number] [facility] Observed: 10/31/2017 Status: COMPLETED Source: [place] 12:30 PM [facility] REPOSITORY HNO ID: [id number] Author: Aleta Sauer) JEFF Sue Service: Healing [...] 31, 2017 TIME: 1:31 PM PAGER/CONTACT #: [phone] NUTRITION Observed: 10/31/2017 Status: COMPLETED Source: [place] 12:01 PM [facility] REPOSITORY HNO ID: [id number] Author: Edel Giullen Service: NST-Nutrition Support Team Author Type: Registered [...] no intervention recommended. ?? She presented to [place] ED on 10/23 due to severe stabbing left-sided abdominal pain radiating to left arm/leg. She had a CT abdomen that showed extensive left retroperitoneal hemorrhage with mass effect to the left kidney, and less extensive hemorrhage along the surface of the spleen and along the mesentery. She was transferred to [place] as ICU at [facility] was full. Present Diet Order: NPO Nutritional [...] (257 lb 15 oz) 10/18/2016 114.306 kg [place] body weight 52.3 kg Estimated kilocalorie needs: 7172-5634 kilocalories determined by 25-30 kcal/kg ideal body weight Estimated protein needs: 78-105 grams determined by 1.5-2.0 g/kg [place] weight Estimated fluid needs: per MD NUTRITION [...] 3 units SIGNATURE: Edel Guillen RD, LD, [facility] PATIENT NAME: Paloma Cannon DATE: October 31, 2017 TIME: 12:00 PM PAGER: [phone] THERAPY NT Observed: 10/31/2017 Status: COMPLETED Source: [place] 11:34 AM [facility] [place] REPOSITORY HNO ID: [id number] Author: Tamiko (Pt) Adelaida Service: Physical Therapy Author Type: Physical Therapist Type: Therapy (PT/OT/Speech/Resp) Filed: 10/31/2017 11:34 AM Note Text: PHYSICAL THERAPY LYMPHEDEMA MISSED VISIT SERVICE DATE: 10/31/2017 SERVICE TIME: 1110 to 1110 ROOM: [place] [address] Attempted Treatment. Patient not seen due to Sleeping. SIGNATURE: Tamiko Son PT PATIENT NAME: Paloma Cannon DATE: October 31, 2017 TIME: 11:34 AM PAGER/CONTACT #: [phone] THERAPY NT Observed: 10/31/2017 Status: COMPLETED Source: [place] 11:33 AM [facility] REPOSITORY HNO ID: [id number] Author: Tamiko (Pt) Adelaida Service: Physical Therapy Author Type: Physical Therapist Type: Therapy (PT/OT/Speech/Resp) Filed: 10/31/2017 11:33 AM Note Text: PHYSICAL THERAPY LYMPHEDEMA MISSED VISIT SERVICE DATE: 10/31/2017 SERVICE TIME: 0835 to 0835 ROOM: [place] [address] Attempted Treatment. Patient not seen due to Declined (Pt requested that PT return at a later time). SIGNATURE: Tamiko Son PT PATIENT NAME: Paloma Cannon DATE: October 31, 2017 TIME: 11:33 AM PAGER/CONTACT #: [phone] ALLIED HEALTH Observed: 10/31/2017 Status: COMPLETED Source: [place] 11:30 AM [facility] REPOSITORY HNO ID: [id number] Author: Opal Polo Service: Music Therapy Author [...] 31, 2017 TIME: 12:20 PM PAGER/CONTACT #: [phone] PROGRESS Observed: 10/31/2017 Status: COMPLETED Source: [place] 11:29 AM [facility] REPOSITORY HNO ID: [id number] Author: Austen Choudhury Service: Critical Care Author [...] Drain Indwelling Urinary Catheter 10/23/17 0520 Assessment [place] 8 days Vent/Oxygen: Supplemental Oxygen: Yes. FiO2 [...] and Moving all extremities Infusion Medications HYDROmorphone MANAGER BILLING 0.5 mg/mL NaCl 0.9% Last Rate: 10 [...] Peripheral neuropathy - post-thrombotic syndrome Transferred from [place] for ongoing L RP bleeding. Major Interval Events: 10/26: Transferred from [place]. Hgb down to 5.5. CTA showing active [...] contrast, now requiring dialysis First HD at [place] on 10/25 with tunneled dialysis catheter placement [...] IR emobolization of left L3 artery at [place] on 10/23 IR embolization of left L2 [...] this morning, access site for embolization at [place], no erythema or induration appreciated on exam, [...] 31, 2017 TIME: 11:29 AM PAGER/CONTACT #: [phone] [facility] STAFF PHYSICIAN NOTE OF PERSONAL INVOLVEMENT IN CARE I have reviewed the progress note obtained and documented by the physician cement tester assistant and I personally participated in the [...] s/p IVC filter. Persistent abdominal pain on MANAGER BILLING pump (using it less after bowel movements). [...] ? SIGNATURE: Austen Choudhury MD [facility] PAGER:[phone] October 31, 2017 CBC Collected: 10/31/2017 Status: F Source: [place] 11:10 AM [facility] REPOSITORY TYPE CODE TESTS RESULT OUT OF [...] By: #### CBC #### [facility] [address] [place], [place] [address] CONSULT PROG Observed: 10/31/2017 Status: COMPLETED Source: [place] 10:21 AM [facility] REPOSITORY HNO ID: [id number] Author: Juan Christopher (Fel) Service: Hematology Author Type: Fellow Type: Consult Progress Note Filed: 10/31/2017 6:13 PM Note Text: ? [facility] DEPARTMENT OF HEMATOLOGIC ONCOLOGY AND BLOOD DISORDERS [...] mg INTRAVENOUS q 4 H PRN HYDROmorphone MANAGER BILLING 0.5 mg/mL in NaCl 0.9% 100 mL [...] IR guided intervention (initially on 10/23 at [facility] and 10/26 here at [facility]. ? # Antiphospholipid antibody syndrome Extensive [...] MD Fellow, Hematology and Medical Oncology Pager: [phone] CONSULT PROG Observed: 10/31/2017 Status: COMPLETED Source: [place] 8:45 AM [facility] [facility] ID: [id number] Author: Vini Toledo MD Service: Nephrology Author [...] mg INTRAVENOUS q 4 H PRN HYDROmorphone MANAGER BILLING 0.5 mg/mL in NaCl 0.9% 100 mL [...] anuric CAPRICE on CKD stage 3 requiring ASPHALT ROLLER PERSON since 10/26/2017 Baseline Cr 1.2 to 1.5 [...] medications for eGFR <10 mL/min Consent for ASPHALT ROLLER PERSON: ASPHALT ROLLER PERSON initiation date: 10/26/17 Consent obtained and in EMR. Will discuss with staff SIGNATURE: Laya Peters MD PATIENT NAME: Paloma Cannon DATE: October 31, 2017 TIME: 8:45 AM PAGER: [phone] TEACHING PHYSICIAN NOTE OF PERSONAL INVOLVEMENT IN [...] qD Vini Toledo MD, FASN - Pager [phone] October 31, 2017 @ 10:11 AM CONSULT PROG Observed: 10/31/2017 Status: COMPLETED Source: [place] 8:41 AM [facility] O ID: [id number] Author: Lisseth Claudio MD Service: Apheresis Author [...] No call per procedure. 10/31/17 00:32 Steffen Glucose (mg/dL) Date Value 10/30/2017 107 Potassium [...] PRE DIALYSIS Collected: 10/31/2017 Status: F Source: [place] 8:30 AM [facility] TYPE CODE TESTS RESULT OUT OF REFERENCE UNITS RANGE LAB BUNPR 7-21 mg/dL High BUN, Pre 33 Dialysis Performed By: #### BUNPR, HBSAG, AHBSAG #### [facility] [address] [place] [address] HEPATITIS B SURF. AG Collected: 10/31/2017 Status: F Source: [place] 8:30 AM [facility] TYPE CODE TESTS RESULT OUT OF REFERENCE UNITS RANGE LAB HBSAG Negative Hepatitis B Negative Surf. Ag Performed By: #### BUNPR, HBSAG, AHBSAG #### [facility] [address] [place] [address] HEPB SURFACE AB,QUAL Collected: 10/31/2017 Status: F Source: [place] 8:30 AM [facility] TYPE CODE TESTS RESULT OUT OF REFERENCE UNITS RANGE LAB AHBSAG Negative HepB Surface Negative Ab,Qual Result Comment: NEGATIVE Performed By: #### BUNPR, HBSAG, AHBSAG #### [facility] [address] [place], [place] [address] CBC Collected: 10/30/2017 Status: F Source: [place] 11:38 PM [facility] TYPE CODE TESTS RESULT OUT OF [...] No call per procedure. 10/31/17 00:32 SShaneKala LAB MPV 9.0-12.7 fL MPV <<DO NOT REPORT>> LAB ABSNUC <0.01 k/uL 1.33 High Absolute nRBC Performed By: #### CBC, BMP, MG1, PHOS #### [facility] [address] [place], [place] [address] BASIC METABOLIC PANL Collected: 10/30/2017 Status: F Source: [place] 11:38 PM [facility] TYPE CODE TESTS RESULT OUT OF REFERENCE UNITS RANGE LAB GLU 74-99 mg/dL High Glucose 107 Result Comment: The [place] Diabetes Association (ADA) provides guidance for cutoff [...] Standards of Medical Care in Diabetes 2016, [place] [employer]. Diabetes Care. 2016.39(Suppl 1). LAB [...] BMP, MG1, PHOS #### [facility] [address] [place] [address] MAGNESIUM Collected: 10/30/2017 Status: F Source: [place] 11:38 PM [facility] TYPE CODE TESTS RESULT OUT OF REFERENCE UNITS RANGE LAB MG 1.7-2.3 mg/dL Magnesium 2.0 Performed By: #### CBC, BMP, MG1, PHOS #### [facility] [address] [place] [id number] PHOSPHORUS Collected: 10/30/2017 Status: F Source: [place] 11:38 PM [facility] TYPE CODE TESTS RESULT OUT OF REFERENCE UNITS RANGE LAB PHOS 2.7-4.8 mg/dL Phosphorus 3.2 Performed By: #### CBC, BMP, MG1, PHOS #### [facility] [address] [place], [place] [address] CBC Collected: 10/30/2017 Status: F Source: [place] 6:50 PM [facility] TYPE CODE TESTS RESULT OUT OF [...] By: #### CBC #### [facility] [address] [place], [place] [address] XR ABDOMEN 1V SUPINE Observed: 10/30/2017 Status: F Source: [place] 6:16 PM [facility] * * *Final Report* * * [...] findings. IMPRESSION: NO ILEUS OR BOWEL OBSTRUCTION Pie Topper: MURTAZA Transcribe Date/Time: Oct 30 2017 7:36P Dictated by : JJ DOBBS MD This examination was interpreted and the report reviewed and electronically signed by: JJ DOBBS MD on Oct 30 2017 7:37PM EST [id number] THERAPY NT Observed: 10/30/2017 Status: COMPLETED Source: [place] 5:36 PM [facility]NO ID: [id number] Author: Tamiko SanchezOt/Carlos Nelson Service: Occupational Therapy Author Type: Occupational Therapist Type: Therapy (PT/OT/Speech/Resp) Filed: 10/30/2017 5:40 PM Note Text: Occupational Therapy Evaluation SERVICE DATE: 10/30/2017 SERVICE TIME: 1628 to 1651 ROOM: [place] [address] Recommended Discharge Disposition: Unable to determine due [...] daily living (ADL) Interventions Provided: Evaluation;Therapeutic Activity (22096) $ Evaluation-Moderate (20420) Billed Units: 1 unit Therapeutic Activity (79351) Treatment Minutes: 8 1 unit Skilled Intervention(s): [...] old female admitted with RP bleed from [place], HG drops/trending down, requiring multiple units RBCs over last few days, hg today 7.6, patient with incr back pain- seed tester pump Reason for Occupational Therapy Consult: decr [...] for this therapy evaluation/treatment. SIGNATURE: Tamiko Nelson OT/lAlie PATIENT NAME: Paloma Cannon DATE: October 30, 2017 TIME: 5:36 PM PAGER: [phone] PLAN OF CARE Observed: 10/30/2017 Status: COMPLETED Source: [place] 4:32 PM [facility] ID: [id number] Author: Jcarlos Rand ([employer] Paralegal) Service: (none) Author Type: (none) Type: Plan of Care Filed: 10/30/2017 4:50 PM Note Text: Attestation signed by Rebekah Parada (Pharmacist) at 10/31/2017 7:35 AM MEDICATION RECONCILIATION Patient Name: Paloma Cannon : 1990 I confirm and agree with the information below. Reconciliation: Yes All STAFF INTERNIST OFFICE BASED ONLY medications addressed by LIP Additional comments: N/A Allergies: ALLERGIES Allergen Reactions - Rhubarb Rash, Hives - Heparin Other: See Comments Per patient history of HIT - was on angiomax however then took l fondaparinux for bridging to coumadin. - Iv Contrast [Iodine] Other: See Comments shuts kidneys down per patient - Rituximab Other: See Comments Elevated cardiac enzymes Current STAFF INTERNIST OFFICE BASED ONLY Medications: Prior to Admission medications as of [...] as needed. Unknown at Unknown time Rebekah Parada PharmD (Critical Care Pharmacist) - [phone] October 31, 2017 7:34 AM MEDICATION HISTORY [...] bid prn Sulfamethoxazole/trimethoprim DS 1 tab po M/W/F Allergies: ALLERGIES Allergen Reactions - Rhubarb Rash, Hives - Heparin Other: See Comments Per patient history of HIT - was on angiomax however then took l fondaparinux for bridging to coumadin. - Iv Contrast [Iodine] Other: See Comments shuts kidneys down per patient - Rituximab Other: See Comments Elevated cardiac enzymes Preferred Pharmacy: [facility]- [place] [place] [address] [address] [facility] [phone] Current STAFF INTERNIST OFFICE BASED ONLY Medications: Prior to Admission medications as of [...] needed. Unknown at Unknown time Jcarlos Rand ([employer] Paralegal) October 30, 2017 4:32 PM PROGRESS Observed: 10/30/2017 Status: COMPLETED Source: [place] 12:41 PM [facility] HNO ID: [id number] Author: Austen Choudhury Service: Critical Care Author [...] and Moving all extremities Infusion Medications HYDROmorphone MANAGER BILLING 0.5 mg/mL NaCl 0.9% Last Rate: 10 [...] Peripheral neuropathy - post-thrombotic syndrome Transferred from [place] for ongoing L RP bleeding. Major Interval Events: 10/26: Transferred from [place]. Hgb down to 5.5. 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 Alicea PLAN: - cyclophosphamide 150mg daily (ok per [facility] and Dr. Alicea) - Continue prednisone 80mg [...] contrast, now requiring dialysis First HD at [place] on 10/25 with tunneled dialysis catheter placement [...] AND Plan PLAN: - Plasmapheresis q2 weeks ([facility] will arrange for possible PLEX Monday 10/30) - Continue prednisone 80mg daily - Hold anticoagulation until resolution of retroperitoneal bleed - Hematology following, appreciate recs - Vascular med has signed off Retroperitoneal hematoma 10/26/2017 - Present Overview Retroperitoneal bleed: s/p 7 units PRBCs s/p IR emobolization of left L3 artery at [place] on 10/23 IR embolization of left L2 and L3 arteries on 10/26 Current Assessment AND Plan Assessment: secondary to anticoagulation PLAN: - Monitor CBC and transfuse for Hgb<7 - Premedicate for transfusions - Hold anticoagulation - Heme following, appreciate recs - Increased gabapentin per pain management for associated abdominal pain, cont to wean off MANAGER BILLING pump Right groin pain 10/27/2017 - Present Overview 10/27: C/o acute pain this morning, access site for embolization at [place], no erythema or induration appreciated on exam, [...] 30, 2017 TIME: 12:41 PM PAGER/CONTACT #: [phone] [facility] STAFF PHYSICIAN NOTE OF PERSONAL INVOLVEMENT IN CARE I have reviewed the progress note obtained and documented by the physician cement tester assistant and I personally participated in the [...] s/p IVC filter. Persistent abdominal pain on MANAGER BILLING pump. On 3 L/min of O2. Moraxella [...] critical care services: 40 minutes. SIGNATURE: Austen Choudhuyr MD [facility] PAGER:[phone] DATE of SERVICE: October 30, 2017 THERAPY NT Observed: 10/30/2017 Status: COMPLETED Source: [place] 11:34 AM [facility] O ID: [id number] Author: Brenda SanchezPtDevonte Meraz Service: Physical Therapy Author Type: Physical Therapist Type: Therapy (PT/OT/Speech/Resp) Filed: 10/30/2017 11:47 AM Note Text: Physical Therapy Evaluation SERVICE DATE: 10/30/2017 SERVICE TIME: 0950 to 1028 ROOM: [place] [address] Recommended Discharge Disposition: Unable to determine due [...] Diagnosis: Reduced mobility-other Interventions Provided: Therapeutic Activity (39926);Re-evaluation Therapeutic Activity (41465) Treatment Minutes: 23 2 units Skilled Intervention(s): [...] CODE: PT 6 Clicks Score: 11 (10/30/17 4967) Mobility: Walking and Moving Around Current Status (G8978): CL (10/30/17949) Mobility: Walking and Moving Around Goal Status (G8979): CK (10/30/17949) Based on clinical assessment and the score [...] Peripheral neuropathy - post-thrombotic syndrome Transferred from [place] for ongoing L RP bleeding. ? Major Interval Events: 10/26: Transferred from [place]. Hgb down to 5.5. CTA showing active [...] 30, 2017 TIME: 11:34 AM PAGER/CONTACT #: [phone] CASE MANAGEM Observed: 10/30/2017 Status: COMPLETED Source: [place] 11:16 AM [facility]NO ID: [id number] Author: Lisseth Coto (Sw) Service: Case Management Author Type: Painting Department Supervisor Type: Care Mgt Progress Note Filed: 10/30/2017 [...] 30, 2017 TIME: 11:16 AM PAGER/CONTACT #: [phone] CBC Collected: 10/30/2017 Status: F Source: [place] 11:15 AM [facility] TYPE CODE TESTS RESULT OUT OF [...] By: #### CBC #### [facility] [address] [place], [place] [address] THERAPY NT Observed: 10/30/2017 Status: COMPLETED Source: [place] 11:10 AM [facility] [place] [facility] HNO ID: [id number] Author: Tamiko (Pt) Adelaida Service: Physical Therapy Author Type: Physical Therapist Type: Therapy (PT/OT/Speech/Resp) Filed: 10/30/2017 11:20 AM Note Text: Physical Therapy Wound/Lymph Evaluation SERVICE DATE: 10/30/2017 SERVICE TIME: 829 to 923 ROOM: [place] [address] Recommended Discharge Disposition Comments: will require further [...] with: Patient TREATMENT INTERVENTIONS: Interventions Provided: Evaluation;Self Half-Way Management (18571);Manual Therapy (34355) $ Evaluation-High (65375) Billed Units: 1 unit Self Half-Way Management (14164) Treatment Minutes: 14 1 unit Skilled Intervention(s): [...] involved extremity. Written handouts provided Manual Therapy (11003) Treatment Minutes: 25 2 units Skilled Intervention: [...] femoral vein, Uncontrolled hypertension, Pain control on MANAGER BILLING pump and history of HIT ? Patient [...] 30, 2017 TIME: 11:10 AM PAGER/CONTACT #: [phone] XR CHEST 1V FRONTAL Observed: 10/30/2017 Status: F Source: [place] 10:42 AM [facility] * * *Final Report* * * [...] Cardiomediastinal silhouette: Stable cardiomediastinal silhouette. Other: . Pie Topper: MURTAZA Transcribe Date/Time: Oct 30 2017 11:34A Dictated by : STELLA COSME MD This examination was interpreted and the report reviewed and electronically signed by: STELLA COSME MD on Oct 30 2017 11:35AM EST [id number] CONSULT PROG Observed: 10/30/2017 Status: COMPLETED Source: [place] 8:29 AM [facility] HNO ID: [id number] Author: Aj Keenan Service: Hematology Author Type: Physician Type: Consult Progress Note Filed: 10/30/2017 6:43 PM Note Text: ? [facility] DEPARTMENT OF HEMATOLOGIC ONCOLOGY AND BLOOD DISORDERS [...] mg INTRAVENOUS q 4 H PRN HYDROmorphone MANAGER BILLING 0.5 mg/mL in NaCl 0.9% 100 mL [...] IR guided intervention (initially on 10/23 at [facility] and 10/26 here at [facility]. ? # Antiphospholipid antibody syndrome Extensive [...] team will follow. Pt discussed with Dr. eKenan ? Juan Christopher MD Fellow, Hematology and Medical Oncology Pager: [phone] STAFF ADDENDUM: I have reviewed the history, [...] clinical instability--readdress [place] [phone] CONSULT PROG Observed: 10/30/2017 Status: COMPLETED Source: [place] 7:48 AM [facility] ID: [id number] Author: Vini Toledo MD Service: Nephrology Author [...] mg INTRAVENOUS q 4 H PRN HYDROmorphone MANAGER BILLING 0.5 mg/mL in NaCl 0.9% 100 mL [...] anuric CAPRICE on CKD stage 3 requiring ASPHALT ROLLER PERSON since 10/26/2017 Baseline Cr 1.2 to 1.5 [...] once she is off CVVHD Consent for ASPHALT ROLLER PERSON: ASPHALT ROLLER PERSON initiation date: 10/26/17 Consent obtained and in EMR. Will discuss with staff SIGNATURE: Laya Peters MD PATIENT NAME: Paloma Cannon DATE: October 30, 2017 TIME: 8:12 AM PAGER: [phone] TEACHING PHYSICIAN NOTE OF PERSONAL INVOLVEMENT IN [...] FABY, mass effect on kidney - On ASPHALT ROLLER PERSON since 10/26 #. Stage III CKD - [...] tomorrow Vini Toledo MD, FASN - Pager [phone] October 30, 2017 @ 1:35 PM CBC Collected: 10/29/2017 Status: F Source: [place] 11:35 PM [facility] [place] REPOSITORY TYPE CODE TESTS RESULT OUT OF [...] No call per procedure. G60 10/30/17 0010 D.[facility] LAB MPV 9.0-12.7 fL MPV <<DO NOT REPORT>> LAB ABSNUC <0.01 k/uL 1.72 High Absolute nRBC Performed By: #### CBC, BMP, MG1, PHOS #### [facility] [address] [place] [place] [id number] BASIC METABOLIC PANL Collected: 10/29/2017 Status: F Source: [place] 11:35 PM [facility] REPOSITORY TYPE CODE TESTS RESULT OUT OF REFERENCE UNITS RANGE LAB GLU 74-99 mg/dL High Glucose 115 Result Comment: The [place] Diabetes Association (ADA) provides guidance for cutoff [...] Standards of Medical Care in Diabetes 2016, [place] Diabetes Association. Diabetes Care. 2016.39(Suppl 1). LAB [...] BMP, MG1, PHOS #### [facility] [address] [place] [address] MAGNESIUM Collected: 10/29/2017 Status: F Source: [place] 11:35 PM [facility] TYPE CODE TESTS RESULT OUT OF REFERENCE UNITS RANGE LAB MG 1.7-2.3 mg/dL Magnesium 2.2 Performed By: #### CBC, BMP, MG1, PHOS #### [facility] [address] [place] [address] PHOSPHORUS Collected: 10/29/2017 Status: F Source: [place] 11:35 PM [facility] TYPE CODE TESTS RESULT OUT OF REFERENCE UNITS RANGE LAB PHOS 2.7-4.8 mg/dL Phosphorus 2.8 Performed By: #### CBC, BMP, MG1, PHOS #### [facility] [address] [place] [address] CBC Collected: 10/29/2017 Status: F Source: [place] 6:52 PM [facility] TYPE CODE TESTS RESULT OUT OF [...] By: #### CBC #### [facility] [address] [place], [place] [address] PROGRESS Observed: 10/29/2017 Status: COMPLETED Source: [place] 1:03 PM [facility] [place] [facility] HNO ID: [id number] Author: Christine Almaguer) Denise Service: Critical Care Author Type: Physician Farm Management Agent Type: Progress Notes Filed: 10/29/2017 1:41 PM Note Text: SERVICE DATE: 10/29/2017 SERVICE TIME: 1:03 PM MICU PROGRESS NOTE Admission Date: 10/25/2017 Hospital Day # 4 SUBJECTIVE Interval HPI: Still having pain despite PO oxycodone and MANAGER BILLING bolus of dilaudid OBJECTIVE Vital Signs (last filed) Range in last 24h Temp: 37.2 ?C (99 ?F) (10/29/17 08) Temp Min: 36.2 ?C (97.2 ?F) Max: 37.2 ?C (99 ?F) Pulse: (!) 124 (10/29/17 08) Pulse Min: 78 Max: 124 Resp: 18 (10/29/17829) Resp Min: 12 Max: 50 BP: 129/64 [...] 10/29/17 0659 Last data filed at 10/29/17 0600 Gross [...] and Moving all extremities Infusion Medications HYDROmorphone MANAGER BILLING 0.5 mg/mL NaCl 0.9% Last Rate: 10 [...] Peripheral neuropathy - post-thrombotic syndrome Transferred from [place] for ongoing L RP bleeding. Major Interval Events: 10/26: Transferred from [place]. Hgb down to 5.5. CTA showing active [...] contrast, now requiring dialysis First HD at [place] on 10/25 with tunneled dialysis catheter placement [...] IR emobolization of left L3 artery at [place] on 10/23 IR embolization of left L2 and L3 arteries on 10/26 Current Assessment AND Plan Assessment: secondary to anticoagulation (Fondaparinux) PLAN: - Monitor CBC and transfuse for Hgb<7 - Premedicate for transfusions - Hold anticoagulation - MANAGER BILLING pump for RP associated pain (added basal rate), d/c oxycodone Right groin pain 10/27/2017 - Present Overview 10/27: C/o acute pain this morning, access site for embolization at [place], no erythema or induration appreciated on exam, [...] 29, 2017 TIME: 1:03 PM PAGER/CONTACT #: [phone] TYPE AND SCREEN Collected: 10/29/2017 Status: F Source: [place] 11:56 AM [facility] REPOSITORY TYPE CODE TESTS RESULT OUT OF REFERENCE UNITS RANGE LAB %ABR B ABO/RH(D) POSITIVE LAB % Antibody POS Screen Performed By: #### TSCR #### [facility] [address] [place] [id number] CBC Collected: 10/29/2017 Status: F Source: [place] 11:50 AM [facility] [place] RE[facility] TYPE CODE TESTS RESULT OUT OF [...] clot detected. No call per procedure. 10/29/17 1259 [facility] LAB MPV 9.0-12.7 fL MPV <<DO NOT REPORT>> LAB ABSNUC <0.01 k/uL 1.18 High Absolute nRBC Performed By: #### CBC #### [facility] [address] [place], [place] [address] PROGRESS Observed: 10/29/2017 Status: COMPLETED Source: [place] 11:11 AM [facility] HNO ID: [id number] Author: Germán Lopez Service: Critical Care Author Type: Physician Type: Progress Notes Filed: 10/29/2017 11:18 AM Note Text: [facility] STAFF PHYSICIAN NOTE OF PERSONAL INVOLVEMENT IN CARE I have reviewed the progress note obtained and documented by the physician cement tester assistant and I personally participated in the [...] Amlodipine increased UF at 350 Continue on MANAGER BILLING oxycodone for pain Gabapentin for neuropathy On [...] femoral vein Uncontrolled hypertension Pain control on MANAGER BILLING pump. History of HIT?? PLAN:? Vascular medicine [...] minutes. SIGNATURE: Germán Lopez MD [facility] PAGER:[phone] DATE of SERVICE: October 29, 2017 CONSULT PROG Observed: 10/29/2017 Status: COMPLETED Source: [place] 8:52 AM [facility] [place] RE[facility] ID: [id number] Author: Morteza Smart Service: Vascular Medicine Author [...] mg INTRAVENOUS q 4 H PRN HYDROmorphone MANAGER BILLING 0.5 mg/mL in NaCl 0.9% 100 mL [...] 29, 2017 TIME: 8:52 AM PAGER/CONTACT #: [phone] . CONSULT PROG Observed: 10/29/2017 Status: COMPLETED Source: [place] 6:56 AM [facility] [place] RE[facility] O ID: [id number] Author: Jonatan Blas Service: Nephrology Author Type: [...] mg INTRAVENOUS q 4 H PRN HYDROmorphone MANAGER BILLING 0.5 mg/mL in NaCl 0.9% 100 mL [...] vasculitic process - Access: [facility] - ASPHALT ROLLER PERSON initiated on 10/26/17 - No current signs [...] Daily weights - Strict I/O's Consent for ASPHALT ROLLER PERSON: ASPHALT ROLLER PERSON initiation date: 10/26/17 Consent obtained and in EMR. Dr. Laya Peters (pager [phone]) will assume care on MondayOctober 30 SIGNATURE: Day Vásquez MD PATIENT NAME: Paloma Cannon DATE: October 29, 2017 TIME: 6:56 AM PAGER: [phone] [facility] [facility] STAFF PHYSICIAN NOTE OF PERSONAL INVOLVEMENT IN [...] Staff Nephrology and Hypertension [facility] Beeper Number: [id number] Date of Service: 10/29/2017 Time of Service: 9:21 AM CBC Collected: 10/29/2017 Status: F Source: [place] 6:24 AM [facility] [place] RE[facility] TYPE CODE TESTS RESULT OUT OF [...] By: #### CBC #### [facility] [address] [place], [place] [address] NURSING PROG Observed: 10/29/2017 Status: COMPLETED Source: [place] 5:20 AM [facility] HNO ID: [id number] Author: Jose (Rn) JEFF Woods Service: Nursing Author Type: Registered Nurse Type: Nursing Progress Note Filed: 10/29/2017 5:22 AM Note Text: Nursing Progress Note Patient Name: Paloma Cannon [address] Daily Note: Pt was ordered 1 unit of platelet, staffed with [facility] team and was told not to give the platelet due to vascular medicine wants pt to avoid platelets transfusion as much as possible. Platelet was returned to the blood bank This note was completed by: Jose Woods RN BASIC METABOLIC PANL Collected: 10/28/2017 Status: F Source: [place] 11:52 PM [facility] REPOS[facility]ORY TYPE CODE TESTS RESULT OUT OF REFERENCE UNITS RANGE LAB GLU 74-99 mg/dL Glucose 91 Result Comment: The [place] Diabetes Association (ADA) provides guidance for cutoff [...] Standards of Medical Care in Diabetes 2016, [place] [employer]. Diabetes Care. 2016.39(Suppl 1). LAB [...] MG1, PHOS, CBC #### [facility] [address] [place] [address] MAGNESIUM Collected: 10/28/2017 Status: F Source: [place] 11:52 PM [facility] REPOSITORY TYPE CODE TESTS RESULT OUT OF REFERENCE UNITS RANGE LAB MG 1.7-2.3 mg/dL Magnesium 1.9 Performed By: #### BMP, MG1, PHOS, CBC #### [facility] [address] [place] [address] PHOSPHORUS Collected: 10/28/2017 Status: F Source: [place] 11:52 [facility] REPOSITORY TYPE CODE TESTS RESULT OUT OF REFERENCE UNITS RANGE LAB PHOS 2.7-4.8 mg/dL Phosphorus 3.4 Performed By: #### BMP, MG1, PHOS, CBC #### [facility] [facility] [address] [address] CBC Collected: 10/28/2017 Status: F Source: [place] 11:52 PM [facility] REPOSITORY TYPE CODE TESTS RESULT OUT OF [...] MG1, PHOS, CBC #### [facility] [address], [place] [address] CBC Collected: 10/28/2017 Status: F Source: [place] 7:47 PM [facility] REPOSITORY TYPE CODE TESTS RESULT OUT OF [...] detected. No call per procedure. 10/28/17 20:53 [facility] MPV 9.0-12.7 fL MPV <<DO NOT REPORT>> LAB ABSNUC <0.01 k/uL 1.38 High Absolute nRBC Performed By: #### CBC #### [facility] [address] [place], [place] [address] PROGRESS Observed: 10/28/2017 Status: COMPLETED Source: [place] 1:58 PM [facility] REPOSITORY HNO ID: [id number] Author: Christine Almaguer) Scovil Service: Critical Care Author Type: Physician Farm Management Agent Type: Progress Notes Filed: 10/28/2017 2:00 PM Note Text: SERVICE DATE: 10/28/2017 SERVICE TIME: 1:58 PM MICU PROGRESS NOTE Admission Date: 10/25/2017 Hospital Day # 3 SUBJECTIVE Interval HPI: Pt states pain is better controlled today, resting comfortably in bed OBJECTIVE Vital Signs (last filed) Range in last 24h Temp: 36.9 ?C (98.4 ?F) (10/28/17 07) Temp Min: 36.1 ?C (97 ?F) Max: [...] Max: 100 % Pain Score: 9/10 (10/28/17 07) Fluid Balance: Intake/Output Summary (Last 24 hours) at 10/28/17 06 Last data filed at 10/28/17599 Gross per 24 hour Intake 2285 ml Output 2712 ml Net -427 ml Last Weight: 121.4 kg (267 lb 10.2 oz) (10/28/17599) Admit Weight: 112.2 kg (247 lb 5.7 [...] and Moving all extremities Infusion Medications HYDROmorphone MANAGER BILLING 0.5 mg/mL NaCl 0.9% Last Rate: 30 [...] plasmapheresis q2 weeks, prednisone 5mg daily - [facility] - on cyclophosphamide and prednisone, has had 6 episodes of respiratory decline since 2013, last admission for hemoptysis on 10/13/17, on 2 L at night and with exertion - HIT - CKD 3, 2/2 renal vein thrombosis and contrast-induced nephropathy - HFpEF - HTN - Peripheral neuropathy - post-thrombotic syndrome Transferred from [place] for ongoing L RP bleeding. Major Interval Events: 10/26: Transferred from [place]. Hgb down to 5.5. 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 Alicea PLAN: - Restart cyclophosphamide 150mg daily (ok per [facility] and Dr. Alicea) - Continue prednisone 80mg [...] contrast, now requiring dialysis First HD at [place] on 10/25 with tunneled dialysis catheter placement [...] AND Plan PLAN: - Plasmapheresis q2 weeks ([facility] will arrange for PLEX Monday 10/30) - Continue prednisone 80mg daily - Hold anticoagulation until resolution of retroperitoneal bleed - Vascular med and hematology following, appreciate recs Retroperitoneal hematoma 10/26/2017 - Present Overview Retroperitoneal bleed: s/p 7 units PRBCs s/p IR emobolization of left L3 artery at [place] on 10/23 IR embolization of left L2 and L3 arteries on 10/26 Current Assessment AND Plan Assessment: secondary to anticoagulation PLAN: - Monitor CBC and transfuse for Hgb<7 - Premedicate for transfusions - Hold anticoagulation - wean off MANAGER BILLING pump to PO oxycodone for L sided flank pain Right groin pain 10/27/2017 - Present Overview 10/27: C/o acute pain this morning, access site for embolization at [place], no erythema or induration appreciated on exam, [...] 28, 2017 TIME: 1:58 PM PAGER/CONTACT #: [phone] CBC Collected: 10/28/2017 Status: F Source: [place] 1:10 PM [facility] REPOSITORY TYPE CODE TESTS RESULT OUT OF [...] By: #### CBC #### [facility] [address] [place], [place] [address] CONSULT Observed: 10/28/2017 Status: COMPLETED Source: [place] 10:14 AM [facility] REPOSITORY HNO ID: [id number] Author: Lupillo Newman MD Service: Vascular Surgery [...] receives plasmapheresis q2 weeks, who presented to [place] and then [place] on 10/23 with severe stabbing left-sided abdominal pain radiating to the left arm/leg and was found to have a large left RP bleed, after which she was transferred to [facility] - her Fondaparinux has been held [...] No Prescriptions Prior to Admission: [] HYDROmorphone MANAGER BILLING CLINICIAN DOSE 0.5 mg/mL Inject 0.8 mL [...] mg INTRAVENOUS q 4 H PRN HYDROmorphone MANAGER BILLING 0.5 mg/mL in NaCl 0.9% 100 mL [...] - - 80 19 97 % - 10/27/172009 185/87 - - 97 26 95 % - 10/27/17 2000 (!) 213/98 - - 101 30 94 % - 10/27/17 1957 - 36.4 ?C (97.5 ?F) - - [...] endograft (Endoglix AFX, 2012), who presented to [place] and then [place] on 10/23 with severe stabbing left-sided abdominal pain radiating to the left arm/leg and was found to have a large left RP bleed, after which she was transferred to [facility] - her Fondaparinux has been held [...] hematoma -care per Primary Team -agree with VM recs to wrap legs -plans to be discussed with Staff No problems updated. SIGNATURE: Lupillo Newman MD PATIENT NAME: Paloma Cannon DATE: October 28, 2017 TIME: 10:14 AM PAGER/CONTACT #: [phone] PROGRESS Observed: 10/28/2017 Status: COMPLETED Source: [place] 8:36 AM [facility] REPOSITORY [facility] ID: [id number] Author: Germán Lopez Service: Critical Care Author Type: Physician Type: Progress Notes Filed: 10/28/2017 8:50 AM Note Text: [facility] STAFF PHYSICIAN NOTE OF PERSONAL INVOLVEMENT IN CARE I have reviewed the progress note obtained and documented by the physician cement tester assistant and I personally participated in the [...] femoral vein Uncontrolled hypertension Pain control on MANAGER BILLING pump. History of HIT?? PLAN:? Vascular medicine [...] minutes. SIGNATURE: Germán Lopez MD [facility] PAGER:[phone] DATE of SERVICE: October 28, 2017 CONSULT PROG Observed: 10/28/2017 Status: COMPLETED Source: [place] 6:54 AM [facility] REPOSITORY [facility] ID: [id number] Author: Jonatan Blas Service: Nephrology Author Type: [...] 800 mg ORAL TID w MEALS HYDROmorphone MANAGER BILLING 0.5 mg/mL in NaCl 0.9% 100 mL [...] vasculitic process - Access: [facility] - [employer] ROLL[employer] PERSON initiated on 10/26/17 - No current signs [...] Daily weights - Strict I/O's Consent for ASPHALT ROLLER PERSON: ASPH[employer] ROLLER PERSON initiation date: 10/26/17 Consent obtained and in EMR. Dr. Laya Peters (pager [phone]) will assume care on MondayOctober 30 SIGNATURE: Day Vásquez MD PATIENT NAME: Paloma Cannon DATE: October 28, 2017 TIME: 6:54 AM PAGER: [phone] [facility] STAFF PHYSICIAN NOTE OF PERSONAL INVOLVEMENT IN [...] Staff Nephrology and Hypertension [facility] Beeper Number: [phone] Date of Service: 10/28/2017 Time of Service: 7:18 AM CONSULT PROG Observed: 10/28/2017 Status: COMPLETED Source: [place] 6:08 AM [facility] REPOSITORY HNO ID: [id number] Author: Morteza Smart Service: Vascular Medicine Author [...] 800 mg ORAL TID w MEALS HYDROmorphone MANAGER BILLING 0.5 mg/mL in NaCl 0.9% 100 mL [...] in vessels visualized. ? Technologist: Samanta Macario [facility] Referring physician: SAPNA WYATT Impression/Recommendations F, 28 [...] of a large lower extremity fistula, [facility] [place] surgically created, and no need for intervention [...] as DVT prophylaxis => One of our it project lead will come to wrap her legs today => Please avoid all heparin or heparin-related products SIGNATURE: Linnette Almendarez MD PATIENT NAME: Paloma Cannon DATE: October 28, 2017 TIME: 6:58 AM PAGER/CONTACT #: [phone] [facility] STAFF PHYSICIAN NOTE OF PERSONAL INVOLVEMENT IN [...] AM CBC Collected: 10/28/2017 Status: F Source: [place] [address]:06 AM [facility] REPOSITORY TYPE CODE TESTS RESULT OUT OF [...] By: #### CBC #### [facility] [address] [place], [place] [address] BASIC METABOLIC PANL Collected: 10/28/2017 Status: F Source: [place] 4:01 AM [facility] REPOSITORY TYPE CODE TESTS RESULT OUT OF REFERENCE UNITS RANGE LAB GLU 74-99 mg/dL Glucose 92 Result Comment: The [place] Diabetes Association (ADA) provides guidance for cutoff [...] Standards of Medical Care in Diabetes 2016, [place] Diabetes [employer]. Diabetes Care. 2016.39(Suppl 1). LAB [...] BMP, MG1, PHOS #### [facility] [address] [place] [address] MAGNESIUM Collected: 10/28/2017 Status: F Source: [place] 4:01 AM [facility] REPOSITORY TYPE CODE TESTS RESULT OUT OF REFERENCE UNITS RANGE LAB MG 1.7-2.3 mg/dL Magnesium 2.0 Performed By: #### BMP, MG1, PHOS #### [facility] [address] [address] PHOSPHORUS Collected: 10/28/2017 Status: F Source: [place] 4:01 [facility] REPOSITORY TYPE CODE TESTS RESULT OUT OF REFERENCE UNITS RANGE LAB PHOS 2.7-4.8 mg/dL Phosphorus 4.3 Performed By: #### BMP, MG1, PHOS #### [facility] [address] [address] CBC Collected: 10/28/2017 Status: F Source: [place] 12:05 [facility] REPOSITORY TYPE CODE TESTS RESULT OUT [...] nRBC 1.34 Performed By: #### CBC #### [facility] [address] [place], [place] [address] CBC Collected: 10/27/2017 Status: F Source: [place] 8:10 PM [facility] REPOSITORY TYPE CODE TESTS RESULT OUT OF [...] nRBC 1.07 Performed By: #### CBC #### [facility] [address] [place], [place] [address] MAGNESIUM Collected: 10/27/2017 Status: F Source: [place] 4:23 PM [facility] REPOSITORY TYPE CODE TESTS RESULT OUT OF REFERENCE UNITS RANGE LAB MG 1.7-2.3 mg/dL Magnesium 2.1 Performed By: #### MG1, PHOS #### [facility] [address], [place] [address] PHOSPHORUS Collected: 10/27/2017 Status: F Source: [place] 4:23 PM [facility] REPOSITORY TYPE CODE TESTS RESULT OUT OF REFERENCE UNITS RANGE LAB PHOS 2.7-4.8 mg/dL High Phosphorus 5.4 Performed By: #### MG1, PHOS #### [facility] [address] [place], [place] [address] FONDAPARINUX ASSAY Collected: 10/27/2017 Status: F Source: [place] 4:23 PM [facility] REPOSITORY TYPE CODE TESTS RESULT OUT OF [...] (body weight >100 kg) once daily, the hybi-uzjvfx-uayzfsoc doses provide similar mean steady-state peaks and minimum plasma concentrations across all body weight categories. The mean peak steady-state plasma concentration is in the range of 1.20 to 1.26 mg/L. In these patients, the mean minimum steady-state plasma concentration is in the range of 0.46 to 0.62 mg/L. (Prescribing information for Arixtra from [employer], April 2010) Note: The fondaparinux assay is performed by an anti-Xa methodology and that comcomitant therapy with unfractionated or low molecular weight heparin could falsely elevate the fondaparinux levels. Performed By: #### FONDXA #### [facility] [address], [place] [address] CONSULT Observed: 10/27/2017 Status: COMPLETED Source: [place] 12:49 PM [facility] REPOSITORY HNO ID: [id number] Author: Norma Macias Service: Nephrology Author Type: [...] Medications Prescriptions Prior to Admission: [] HYDROmorphone MANAGER BILLING CLINICIAN DOSE 0.5 mg/mL Inject 0.8 mL [...] 800 mg ORAL TID w MEALS HYDROmorphone MANAGER BILLING 0.5 mg/mL in NaCl 0.9% 100 mL [...] October 26, 2017 TIME: 9:04 AM PAGER: [phone] Addendum Was started on CRRT last night with 3 K bath, Qd 2500 cc/hr, currently running well, UF at 100 cc/hr. Catherine Oh MD Fellow Nephrology and Hypertension Pager: [phone] October 27, 2017 9:18 AM Staff note: [...] 2017 PROGRESS Observed: 10/27/2017 Status: COMPLETED Source: [place] 12:30 PM [facility] REPOSITORY HNO ID: [id number] Author: Destinee Flores MD Service: Critical Care [...] and Moving all extremities Infusion Medications HYDROmorphone MANAGER BILLING 0.5 mg/mL NaCl 0.9% Last Rate: 30 [...] Peripheral neuropathy - post-thrombotic syndrome Transferred from [place] for ongoing L RP bleeding. Major Interval Events: 10/26: Transferred from [place]. Hgb down to 5.5. CTA showing active [...] contrast, now requiring dialysis First HD at [place] on 10/25 with tunneled dialysis catheter placement [...] AND Plan PLAN: - Plasmapheresis q2 weeks ([facility] will arrange for PLEX Monday 10/30) - Continue prednisone 80mg daily - Hold anticoagulation until resolution of retroperitoneal bleed - Vascular med and hematology following, appreciate recs Retroperitoneal hematoma 10/26/2017 - Present Overview Retroperitoneal bleed: s/p 7 units PRBCs s/p IR emobolization of left L3 artery at [place] on 10/23 IR embolization of left L2 and L3 arteries on 10/26 Current Assessment AND Plan Assessment: secondary to anticoagulation PLAN: - Monitor CBC and transfuse for Hgb<7 - Premedicate for transfusions - Hold anticoagulation - MANAGER BILLING pump with dilaudid for pain control of L sided pain related to RP bleed Right groin pain 10/27/2017 - Present Overview C/o acute pain this morning, access site for embolization at [place], no erythema or induration appreciated on exam, [...] 27, 2017 TIME: 12:30 PM PAGER/CONTACT #: [phone] [facility] STAFF PHYSICIAN NOTE OF PERSONAL INVOLVEMENT IN CARE I have reviewed the progress note obtained and documented by the nurse practitioner/physician cement tester assistant and I personally participated in the [...] ? SIGNATURE: Destinee Flores MD [facility] PAGER:[phone] DATE of SERVICE: October 27, 2017 TIME of SERVICE: 8:[address] ABD/PEL WO IVCON Observed: 10/27/2017 Status: F Source: [place] 12:21 PM [facility] [place] REPOSITORY * * *Final Report* * * DATE OF EXAM: Oct 27 2017 12:21PM [facility] 0531 - CT ABD/PEL WO IVCON / [...] ATELECTASIS/EDEMA WITH AN INFECTIOUS/INFLAMMATORY PROCESSES NOT EXCLUDED. Pie Topper: MURTAZA Transcribe Date/Time: Oct 27 2017 12:41P Dictated by : SANCHEZ WHITE MD This examination was interpreted and the report reviewed and electronically signed by: LYDIA FARIA DO on Oct 27 2017 4:26PM EST [id number] PROGRESS Observed: 10/27/2017 Status: COMPLETED Source: [place] 12:12 PM [facility] REPOSITORY O ID: [id number] Author: Allyson Goodson (Ct) Service: Radiology Author Type: Clinical [employer] Machine Operator Type: Progress Notes Filed: 10/27/2017 12:12 PM [...] PM CBC Collected: 10/27/2017 Status: F Source: [place] 11:35 AM [facility] REPOSITORY TYPE CODE TESTS RESULT OUT OF [...] By: #### CBC #### [facility] [address] [place], [place] [address] CONSULT PROG Observed: 10/27/2017 Status: COMPLETED Source: [place] 10:11 AM [facility] REPOSITORY HNO ID: [id number] Author: Morteza Smart Service: Vascular Medicine Author [...] 800 mg ORAL TID w MEALS HYDROmorphone MANAGER BILLING 0.5 mg/mL in NaCl 0.9% 100 mL [...] lower extremity fistula, per vasc surgery in [place] surgically created, and no need for intervention [...] as DVT prophylaxis => One of our it project lead will come to wrap her legs today => Please avoid all heparin or heparin-related products SIGNATURE: Linnette Almendarez MD PATIENT NAME: Paloma Cannon DATE: October 27, 2017 TIME: 11:13 AM PAGER/CONTACT #: [phone] . CBC Collected: 10/27/2017 Status: F Source: [place] 6:30 AM [facility] REPOSITORY TYPE CODE TESTS RESULT OUT OF [...] nRBC 0.57 Performed By: #### CBC #### [facility] [address] [address] HEMOGLOBIN Collected: 10/27/2017 Status: F Source: [place] 2:50 AM [facility] REPOSITORY TYPE CODE TESTS RESULT OUT OF REFERENCE UNITS RANGE LAB HGB 11.5-15.5 g/dL Low Hemoglobin 6.6 Performed By: #### HGB #### [facility] [address] [address] CBC Collected: 10/27/2017 Status: F Source: [place] 1:00 AM [facility] REPOSITORY TYPE CODE TESTS RESULT OUT OF [...] BMP, MG1, PHOS #### [facility] [address] [place], [place] [address] BASIC METABOLIC PANL Collected: 10/27/2017 Status: F Source: [place] 1:00 AM [facility] [place] REPOSITORY TYPE CODE TESTS RESULT OUT OF REFERENCE UNITS RANGE LAB GLU 74-99 mg/dL High Glucose 118 Result Comment: The [place] Diabetes Association (ADA) provides guidance for cutoff [...] Standards of Medical Care in Diabetes 2016, [place] Diabetes [employer]. Diabetes Care. 2016.39(Suppl 1). LAB [...] BMP, MG1, PHOS #### [facility] [address] [place] [address] MAGNESIUM Collected: 10/27/2017 Status: F Source: [place] 1:00 AM [facility] REPOSITORY TYPE CODE TESTS RESULT OUT OF REFERENCE UNITS RANGE LAB MG 1.7-2.3 mg/dL Magnesium 2.1 Performed By: #### CBC, BMP, MG1, PHOS #### [facility] [address] [place] [id number] PHOSPHORUS Collected: 10/27/2017 Status: F Source: [place] 1:00 AM [facility] REPOSITORY TYPE CODE TESTS RESULT OUT OF REFERENCE UNITS RANGE LAB PHOS 2.7-4.8 mg/dL High Phosphorus 7.1 Performed By: #### CBC, BMP, MG1, PHOS #### [facility] [address] [address] PLAN OF CARE Observed: 10/26/2017 Status: COMPLETED Source: [place] 9:57 PM [facility] REPOSITORY HNO ID: [id number] Author: Daysi Kohli Service: Critical Care Author [...] DO CBC Collected: 10/26/2017 Status: F Source: [place] 8:20 PM [facility] REPOSITORY TYPE CODE TESTS RESULT OUT OF [...] CBC, MG1, PHOS #### [facility] [address] [id number] MAGNESIUM Collected: 10/26/2017 Status: F Source: [place] 8:20 PM [facility] REPOSITORY TYPE CODE TESTS RESULT OUT OF REFERENCE UNITS RANGE LAB MG 1.7-2.3 mg/dL Magnesium 2.1 Performed By: #### CBC, MG1, PHOS #### [facility] [address] [place] [address] PHOSPHORUS Collected: 10/26/2017 Status: F Source: [place] 8:20 PM [facility] REPOSITORY TYPE CODE TESTS RESULT OUT OF REFERENCE UNITS RANGE LAB PHOS 2.7-4.8 mg/dL High Phosphorus 8.5 Performed By: #### CBC, MG1, PHOS #### [facility] [address] [place], [place] [address] BRIEF OP NOT Observed: 10/26/2017 Status: COMPLETED Source: [place] 5:59 PM [facility] REPOSITORY HNO ID: [id number] Author: Yong Rosales Service: Interventional Radiology Author Type: Physician Type: Brief Op Note Filed: 10/26/2017 6:01 PM Note Text: BRIEF OPERATIVE / PROCEDURE NOTE LOG ID: [id number] SURGERY/PROCEDURE DATE: 10/26/2017 INCISION/PROCEDURE START TIME: 3:58 PM INCISION CLOSE/PROCEDURE END TIME: 5:01 PM SURGEON(S)/PROCEDURALIST(S) AND EMPLOYEE RELATIONS ADMINISTRATOR(S): Surgeon(s) and Role: * Yong Rosales - [...] 26, 2017 TIME: 5:59 PM PAGER/CONTACT #: [phone] IR VISCERAL EMBOLIZATION Observed: 10/26/2017 Status: F Source: [place] 5:01 PM [facility] REPOSITORY * * *Final Report* * * DATE OF EXAM: Oct 26 2017 5:01PM [facility] 0826 - IR VISCERAL EMBOLIZATION / [...] Kerma: 837.3 mGy Dose Area Product (DAP): 992597.0 mGy*cm2 Fluoro Time: 19:24 min:sec Radiation dose [...] vein stent, femoral head and palpation. A Lumics wire is advanced under fluoroscopic guidance into the aorta followed by a 5 Bel[place]an vascular sheath which was attached to normal [...] to terminate a 2 x 3 mm [place] microcoils followed by a single 3 mm [...] Specimens: 0: ATTENDING RADIOLOGIST: Yong Rosales M.D. EMPLOYEE RELATIONS ADMINISTRATOR: None The procedure was performed by the: attending radiologist, without an cement tester assistant. The attending radiologist performed the following [...] ADDITIONAL EMBOLIZATION OF LEFT L3 DESCRIBED ABOVE. Pie Topper: PSCB Transcribe Date/Time: Oct 27 2017 4:46A Dictated by : YONG ROSALES MD This examination was interpreted and the report reviewed and electronically signed by: YONG ROSALES MD on Oct 27 2017 5:07AM EST PT ED Observed: 10/26/2017 Status: COMPLETED Source: [place] 3:34 PM [facility] REPOSITORY HNO ID: [id number] Author: Anahi Sauer) JEFF Castrejon Service: Nursing Author Type: Registered [...] Signed By: ANAHI CASTREJON RN In Department: [facility] G060 FONDAPARINUX ASSAY Collected: 10/26/2017 Status: F Source: [place] 2:26 PM [facility] [place] REPOSITORY TYPE CODE TESTS RESULT OUT OF [...] (body weight >100 kg) once daily, the wwqr-mborav-enxuyznw doses provide similar mean steady-state peaks and minimum plasma concentrations across all body weight categories. The mean peak steady-state plasma concentration is in the range of 1.20 to 1.26 mg/L. In these patients, the mean minimum steady-state plasma concentration is in the range of 0.46 to 0.62 mg/L. (Prescribing information for Arixtra from [employer], April 2010) Note: The fondaparinux assay is performed by an anti-Xa methodology and that comcomitant therapy with unfractionated or low molecular weight heparin could falsely elevate the fondaparinux levels. Performed By: #### FONDXA #### [facility] [address] [address] CBC Collected: 10/26/2017 Status: F Source: [place] 1:23 PM [facility] REPOSITORY TYPE CODE TESTS RESULT OUT OF [...] By: #### CBC #### [facility] [address] [place], [place] [address] PROGRESS Observed: 10/26/2017 Status: COMPLETED Source: [place] 12:39 PM [facility] REPOSITORY HNO ID: [id number] Author: Destinee Flores MD Service: Critical Care [...] and Moving all extremities Infusion Medications HYDROmorphone MANAGER BILLING 0.5 mg/mL NaCl 0.9% Last Rate: 30 [...] Peripheral neuropathy - post-thrombotic syndrome Transferred from [place] for ongoing L RP bleeding. Major Interval Events: New Events (last 24hrs): 10/26: Transferred from [place]. Hgb down to 5.5. CTA showing active [...] IR emobolization of left L3 artery at [place]. Transferred 10/26 for further management. Current Assessment AND Plan Assessment: secondary to anticoagulation PLAN: - IR consulted - CTA abdomen/pelvis - IR embolization - Monitor CBC and transfuse as needed - Premedicate for transfusions - Hold anticoagulation - MANAGER BILLING pump with dilaudid for pain control of L sided pain related to RP bleed Severe CAPRICE (acute kidney injury) (HCC) 10/08/2015 - Present Overview CAPRICE on CKD III, 2/2 contrast, now requiring dialysis First HD at [place] on 10/25 with tunneled dialysis catheter placement [...] 26, 2017 TIME: 12:39 PM PAGER/CONTACT #: [phone] [facility] STAFF PHYSICIAN NOTE OF PERSONAL INVOLVEMENT IN CARE I have reviewed the progress note obtained and documented by the nurse practitioner/physician cement tester assistant and I personally participated in the [...] ? SIGNATURE: Destinee Flores MD [facility] PAGER:[phone] DATE of SERVICE: October 26, 2017 TIME of SERVICE: 8:17 AM NUTRITION Observed: 10/26/2017 Status: COMPLETED Source: [place] 12:23 PM [facility] REPOSITORY [facility] ID: [id number] Author: Edel Guillen Service: NST-Nutrition Support Team [...] no intervention recommended. ?? She presented to [place] ED on 10/23 due to severe stabbing left-sided abdominal pain radiating to left arm/leg. She had a CT abdomen that showed extensive left retroperitoneal hemorrhage with mass effect to the left kidney, and less extensive hemorrhage along the surface of the spleen and along the mesentery. She was transferred to [place] as ICU at [facility] was full. Present Diet Order: NPO Nutritional [...] (257 lb 15 oz) 10/18/2016 114.306 kg [place] body weight 52.3 kg Estimated kilocalorie needs: 6903-7165 kilocalories determined by 25-30 kcal/kg ideal body weight Estimated protein needs: 78-105 grams determined by 1.5-2.0 g/kg [place] weight Estimated fluid needs: per MD NUTRITION [...] 800 mg ORAL TID w MEALS HYDROmorphone MANAGER BILLING 0.5 mg/mL in NaCl 0.9% 100 mL [...] 3 units SIGNATURE: Edel Guillen RD, LD, [facility] PATIENT NAME: Paloma Cannon DATE: October 26, 2017 TIME: 12:23 PM PAGER: [phone] HISTORY PHYSICAL Observed: 10/26/2017 Status: COMPLETED Source: [place] 10:58 AM [facility] REPOSITORY [facility] ID: [id number] Author: Fredi Dykes Service: Interventional Radiology Author [...] 24 cm left retroperitoneal Hematoma, transferred to [place] for angiography by Dr. Gr which showed L3 lumbar arterial extravasation, embolized on 10/23/2017. The patient was transferred to [facility] for further management and pheresis, but has [...] October 26, 2017 TIME: 10:58 AM PAGER: [phone] NURSING PROG Observed: 10/26/2017 Status: COMPLETED Source: [place] 10:55 AM [facility] [place] REPOSITORY HNO ID: [id number] Author: Lili Kelley (Rn) JEFF Juarez Service: [...] NO. IV SITE: Inpatient - refer to [facility] documentation IV SITE APPEARANCE: Clean,Dry and Intact SIGNED BY: Lili Juarez RN October 26, 2017 10:55 AM PROGRESS Observed: 10/26/2017 Status: COMPLETED Source: [place] 10:55 AM [facility] REPOSITORY [facility] ID: [id number] Author: Allyson Goodson (Ct) Service: Radiology Author Type: Clinical [employer] Machine Operator Type: Progress Notes Filed: 10/26/2017 10:55 AM [...] ABD/PELV WO/W Observed: 10/26/2017 Status: F Source: [place] IVCON 10:55 AM [facility] MAIN CAMPUS REPOSITORY * * *Final Report* * * DATE OF EXAM: Oct 26 2017 10:55AM [facility] 0467 - CTA ABD/PELV WO/W IVCON / [...] Daysi ARAGON on 10/26/2017 at 8 p.m.. Pie Topper: MRUTAZA Transcribe Date/Time: Oct 26 2017 11:55A Dictated by : YONG ROSALES MD This examination was interpreted and the report reviewed and electronically signed by: YONG ROSALES MD on Oct 26 2017 7:59PM EST [id number] CASE MGT INIT Observed: 10/26/2017 Status: COMPLETED Source: [facility] 9:40 AM [facility] REPOSITORY [facility]NO ID: [id number] Author: Lisseth Coto (Sw) Service: Social Work Author Type: Painting Department Supervisor Type: Care Mgt Initial Assessment Filed: 10/26/2017 1:51 PM Note Text: CARE MANAGEMENT: ASSESSMENT AND DISCHARGE PLAN SERVICE DATE: 10/26/2017 SERVICE TIME: 9:15A.M. PRIMARY CARE PHYSICIAN: PEYTON ROGERS MD ADMISSION STATUS: Inpatient Needs Prior to Discharge: To Be Determined MEDICAL: Patient/Recruiting Operations Consultant Stated Goals: To have reduction in symptoms Health Insurance: [employer] Health Issues Impacting Discharge Plan: None Last Admission Date: Previous admit date: 10/23/2017 Is this Within the Past 30 days? No Advance Directive: Current Advance Directive: None Communication Center Coordinator Assisted with AD Completion: Yes Action: Education [...] Wheelchair Has the Patient Been in a Alf Facility in the Past 30 days? No [...] 0 I feel financially burdened by my [id number] expenses for my prescription medication: Disagree completely [...] at home. The Oxygen supplying company is [facility] . Pt;s medical goal is for bleeding to stop, and live a normal life. Pt needs are TBD. SIGNATURE: WINSTON Connors PATIENT NAME: Paloma Cannon DATE: October 26, 2017 TIME: 9:40 AM PAGER/CONTACT #: [phone] I have reviewed and agree with the above assessment. Pt admitted to MICU from OSH for ongoing L RP bleeding. Pt's Hgb down to 5.5, CTA showing active extravasation, plan on IR for further management if needed. Possible IHD vs CVVHD. Needs TBD. SW will continue to follow. SIGNATURE: Lisseth Coto ADMINISTRATIVE CLERK, MEDICAL INSTRUCTOR PATIENT NAME: Paloma Cannon DATE: October 26, 2017 TIME: 9:40 AM PAGER/CONTACT #: [phone] CONSULT Observed: 10/26/2017 Status: COMPLETED Source: [place] 8:37 AM [facility] [place] REPOSITORY HNO ID: [id number] Author: Aj Keenan Service: Hematology Author Type: Physician Type: Consults Filed: 10/27/2017 6:53 PM Note Text: [facility] Initial Consult Note PATIENT NAME: Paloma Cannon [facility] #: [id number] ATTENDING PHYSICIAN: Dr. Keenan DATE OF SERVICE: 10/26/2017 Room/Bed: [place] [address] [address] REASON FOR CONSULT: Antiphospholipid Antibody Syndrome Consulting [...] Fondaparinux 7.5mg and Prednisone. She presented to [place] ED on 10/23 due to severe stabbing left-sided abdominal pain radiating to left arm/leg. She had a CT abdomen that showed extensive left retroperitoneal hemorrhage with mass effect to the left kidney, and less extensive hemorrhage along the surface of the spleen and along the mesentery. She was transferred to [place] as ICU at [facility] was full. ? ICU course at [place]: 10/23 Hb 4.8, received 2 units of [...] of pRBC ? She was transferred to [facility] for further management. Patient is in MICU. [...] 800 mg ORAL TID w MEALS HYDROmorphone MANAGER BILLING 0.5 mg/mL in NaCl 0.9% 100 mL [...] Lymph 1.00 - 4.00 k/uL 0.22 (L) Hughes% % 5.0 Abs Hughes <0.87 k/uL 1.09 (H) Eosin% % 0.0 Abs Eosin <0.46 k/uL 0.00 Baso% % 0.0 Abs Baso <0.11 k/uL 0.00 NRBC 0 /100 WBC 1 (H) Absolute nRBC <0.01 k/uL 0.22 (H) 0.22 (H) 0.26 (H) 0.19 (H) 0.33 (H) 0.57 (H) 0.57 (H) ANC(includeSEG+BAND) k/uL 20.29 [place]% % 1.0 Anisocytosis Present Left Shift Present [...] IR guided intervention (initially on 10/23 at [facility] and 4/19 here at [facility]. # Antiphospholipid antibody syndrome Extensive left [...] MD Fellow, Hematology and Medical Oncology Pager: [phone] STAFF ADDENDUM: I have reviewed the history, [...] Her INR was 1.0 on admission to [place]. She had severe left flank/abdominal pain, and [...] and dialysis begun. Patient then transferred to [facility]. Repeat embolization was necessary yesterday when her [...] 2 doses and then had a possible AK. 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 ? Will recheck the fondaparinux level which has likely come down further. Okay to restart cyclophosphamide, plasmapheresis as scheduled. Will follow. ? [place] [phone] CONSULT Observed: 10/26/2017 Status: COMPLETED Source: [place] 7:38 AM [facility] REPOSITORY O ID: [id number] Author: Morteza Smart Service: Vascular Medicine Author [...] Received 7u PRBC and then transferred to [facility] [place] for further management. Will receive two more [...] 800 mg ORAL TID w MEALS HYDROmorphone MANAGER BILLING 0.5 mg/mL in NaCl 0.9% 100 mL [...] with urination: No Blood in urine: No FRUIT THINNER: Abnormal vaginal bleeding: N/A History of loss: [...] lower extremity fistula, per vasc surgery in [place] surgically created, and no need for intervention [...] 26, 2017 TIME: 7:39 AM PAGER/CONTACT #: [phone] . HEMOGLOBIN Collected: 10/26/2017 Status: F Source: [place] 6:40 AM [facility] REPOSITORY TYPE CODE TESTS RESULT OUT OF REFERENCE UNITS RANGE LAB HGB 11.5-15.5 g/dL Low Alert Hemoglobin 5.5 Result Comment: Result checked and verified No clot detected. Called to and read back by: Gemma Ochoa G60 [facility] 10/26/17 Jerardo Munoz Performed By: #### HGB #### [facility] [address] [place] [address] LACTATE Collected: 10/26/2017 Status: F Source: [place] 2:29 AM [facility] REPOSITORY TYPE CODE TESTS RESULT OUT OF REFERENCE UNITS RANGE LAB LACT 0.5-2.2 mmol/L Lactate 1.5 Performed By: #### LACT #### [facility] [address] [place], [place] [address] TYPE AND SCREEN Collected: 10/26/2017 Status: F Source: [place] 1:15 AM [facility] REPOSITORY TYPE CODE TESTS RESULT OUT OF REFERENCE UNITS RANGE LAB %ABR B ABO/RH(D) POSITIVE LAB % Antibody POS Screen Performed By: #### TSCR #### [facility] [address] [place], [place] [address] PROTIME Collected: 10/26/2017 Status: F Source: [place] 12:20 AM [facility] REPOSITORY TYPE CODE TESTS RESULT OUT OF RANGE REFERENCE UNITS LAB PSEC 9.7-13.0 sec PT Sec 10.5 LAB INR 0.9-1.3 PT INR 1.0 Result Comment: Vitamin K Antagonist (VKA) Therapeutic Range: INR 2 to 3 (Target INR of 2.5) Note: For patients treated with VKA drugs, such as warfarin, the [place] [employer] 2012 Guideline recommends [...] Chest 2012, 141:7S-47S Diogenes RA, et al. [facility] 2017, 70: 252-289 Performed By: #### PT, PTT, CMP, PHOS, CBCDIF #### [facility] [address] [address] [place], [place] [address] APTT Collected: 10/26/2017 Status: F Source: [place] 12:20 AM [facility] REPOSITORY TYPE CODE TESTS RESULT OUT OF [...] laboratory APTT reagent in use throughout the [facility]. Performed By: #### PT, PTT, CMP, PHOS, CBCDIF #### [facility] [address] [place], [place] [address] COMP METABOLIC PANEL Collected: 10/26/2017 Status: F Source: [place] 12:20 AM [facility]IN CAMPUS REPOSITORY TYPE CODE TESTS RESULT [...] mg/dL Glucose High 105 Result Comment: The [place] Diabetes Association (ADA) provides guidance for cutoff [...] Standards of Medical Care in Diabetes 2016, [place] [employer]. Diabetes Care. 2016.39(Suppl 1). LAB [...] CMP, PHOS, CBCDIF #### [facility] [address] [place], [place] [address] PHOSPHORUS Collected: 10/26/2017 Status: F Source: [place] 12:20 AM [facility] REPOSITORY TYPE CODE TESTS RESULT OUT OF REFERENCE UNITS RANGE LAB PHOS 2.7-4.8 mg/dL High Phosphorus 8.4 Performed By: #### PT, PTT, CMP, PHOS, CBCDIF #### [facility] [address] [place], [place] [address] CBC AND DIFFERENTIAL Collected: 10/26/2017 Status: F Source: [place] 12:20 AM [facility] REPOSITORY TYPE CODE TESTS RESULT OUT OF [...] Abs Lymph 0.22 Low LAB AMONO % Hughes% 5.0 LAB AAMONO <0.87 k/uL Abs Hughes 1.09 High LAB AEOS % Eosin% 0.0 LAB AAEOS <0.46 k/uL Abs Eosin 0.00 LAB ABASO % Baso% 0.0 LAB AABASO <0.11 k/uL Abs Baso 0.00 LAB NRBC 0 /100 WBC NRBCs 1 High LAB ABNRBC <0.01 k/uL Absolute nRBC 0.22 High LAB ABIMMG k/uL 20.29 ANC(includeSEG+BAND ) LAB AMETA % [place]% 1.0 LAB ANIIMI Anisocytosis Present LAB LFTIMI Left Shift Present LAB OVAIMI Ovalocytes Few LAB POLIMI Polychromasia Slight LAB PLTEST Platelet Estimate Platelet estimate decreased LAB DTYP DTYPE Manual Diff Performed By: #### PT, PTT, CMP, PHOS, CBCDIF #### [facility] [address] [place] [address] STAPH AUREUS PCR Collected: 10/26/2017 Status: F Source: [place] 12:20 AM [facility] REPOSITORY TYPE CODE TESTS RESULT OUT OF REFERENCE UNITS RANGE LAB SASRC Nasal S aureus Spec Source LAB MRSRES Negative for MRSA MRSA by PCR. PCR LAB SARES Negative for Staph Staphylococcus aureus PCR aureus by PCR. Performed By: #### SAPCR #### [facility] [address] [place] [address] HISTORY PHYSICAL Observed: 10/26/2017 Status: COMPLETED Source: [place] 12:09 AM [facility] REPOSITORY [facility]NO ID: [id number] Author: Aline Engle Service: Critical Care Author Type: Resident Type: HANDP Filed: 10/26/2017 4:29 AM Note Text: YU Tuttle HANDP PATIENT NAME: Paloma Cannon History of [...] d/sandy on PO prednisone. She presented to [place] ED on 10/23 due to severe stabbing left-sided abdominal pain radiating to left arm/leg. She had a CT abdomen that showed extensive left retroperitoneal hemorrhage with mass effect to the left kidney, and less extensive hemorrhage along the surface of the spleen and along the mesentery. She was transferred to [place] as ICU at [facility] [place] was full. ICU course at [place]: 10/23 Hb 4.8, received 2 units of [...] morphine had no affect and even dilaudid MANAGER BILLING was insufficient, may need to readdress, dilaudid MANAGER BILLING for now Peripheral neuropathy: gabapentin 200 q12, at home TID, but now renally dosed Cardiovascular: HF: mildly decreased systolic function, diastolic function indeterminate on 10/13/17 ECHO HTN - hold home amlodipine Respiratory: DAH: cyclophosphamide on hold until 10/30, continue bactrim - continue prednisone 80 mg daily on day 10/15 Increased oxygen requirement likely 2/2 diffuse anasarca and difficulty w/ deep breathing - consult to nephrology with HD GI: Diet: renal Constipation: senna BID in setting of opiates, last BM yesterday Elevated liver enzymes, possibly 2/2 volume overload in the setting of acute RF Retroperitoneal hematoma - see hematology Renal CAPRICE on CKD III, 2/2 contrast, now requiring dialysis - first HD at [place] on 10/25 with tunneled dialysis catheter placement [...] Medications/Allergies Prescriptions Prior to Admission: [] HYDROmorphone MANAGER BILLING CLINICIAN DOSE 0.5 mg/mL Inject 0.8 mL [...] bilateral iliac stents and IVC endograft, on shelter AC with warfarin, plasmapharesis q2 weeks, prednisone 5 mg qD), 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 She was discharged yesterday after she stabilized and reached her home around 6 PM. She started having severe left sided abdominal pain under her breast radiating down to thigh region and went back to [facility] ED. She had a CT abdomen at outside hospital. Showed extensive L. retroperitoneal Hemorrhage with mass effect to left kidney. Also less extensive hemorrhage present along the surface of the spleen and along mesentery. Transferred to MICU as [facility] had no beds. On arrival to MICU patient complained of severe excruciating pain in the left abdomen, 10/10 in intensity, sharp in quality radiating from Left breast to thigh region. Pain is constant per patient and only minimally improved with Dilaudid patient received in [facility]. ICU course: HG 4.8, lethargic c/o left flank pain poor relief with IV fentanyl. BP low but acceptable (SBP 100-120) Pt received 2 units emergency blood, IR consulted, underwent urgent L RP angiogram, found to have bleeding from multiple foci of the left L3 artery, -> embolized. 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 fistula [...] repet bmp 9PM Family requests transfer to [facility] . AC on hold in setting acute bleed 10/25: IV Lasix and Demedex diuretics did not improve u/o. Received 2 units PRBCs overnight with total of 7 units PRBCs since admission to . Is premedicated with diphenhydramine AND solu-cortef prior to each infusion of PRBCs.Nephrology consult to Dr Crandall who ordered HD through Apheresis port. Having problems with pain control. Has Dilaudid MANAGER BILLING. Added scheduled Percocet 1 q6h. Will continue [...] Gabapentin, reduced dose given renal failure -dilaudid MANAGER BILLING -0.2mg q 20 minutes no basal -percocet [...] bilateral iliac stents and IVC endograft, on shelter AC with warfarin, plasmapharesis q2 weeks, prednisone 5 mg qD); aslo has Hx of HIT Dx 2013 by [facility]. discharged 10/22 on fondaparinux currently on hold Plan: Consulted hematology, appreciate recs --plasmapheresis q 2 weeks and prednisone 80 mg daily; a prednisone taper by 20 mg every four days (with maintenance of prednisone 5 mg daily) plasmapheresis due Monday will transfer to [facility] by Monday 10/30 Prophylactic: - PPI -a/c held, scd's WOOD MECHANIST -CFV fistula, Vascular Surgery consulted -. fistula created in 2013 no need for intervention FULL CODE difficult airway seen and discussed with Dr Wyatt On transfer to [facility] to [facility] Dr Womack contacting MICU staff to discuss transfer No [facility] bed avail. today 10/25. SIGNATURE: Aline Engle MD, PGY-1 PATIENT NAME: Paloma Cannon DATE: October 26, 2017 TIME: 12:09 AM PAGER: [phone] Note: These recommendations are not final until staffed by provider [facility] STAFF PHYSICIAN NOTE OF PERSONAL INVOLVEMENT IN [...] overload Poor appetite due to edema Requesting operational risk consultant involvement from those involved on regular [...] services: 50 minutes Britney Brady MD Respiratory Elrosa Beeper Number: [id number] Date of Service: 10/26/2017 PLAN OF CARE Observed: 10/25/2017 Status: COMPLETED Source: [place] 10:35 PM CLINIC OTHER CAMPUS REPOSITORY O ID: [id number] Author: Carito Ferrari(Pharmacist) Service: Pharmacy Author Type: [...] PHARMACIST October 26, 2017 11:43 AM Pager: [phone] 10/26/2017 11:43 AM Medication List START taking [...] doctor about these medications HYDROmorphone 0.5 mg/mL MANAGER BILLING CLINICIAN DOSE 0.5 mg/mL Inject 0.8 mL intravenously one time only for 1 dose. Ask about: Should I take this medication? Where to Get Your Medications Information about where to get these medications is not yet available ! 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 She was discharged after she stabilized but developed severe left sided abdominal pain radiating down to thigh. CT of abd at [facility] showed extensive L. retroperitoneal hemorrhage with mass effect to left kidney. Hemorrhage also to surface of spleen and mesentery. Transferred to MICU as [facility] had no beds. In , received 2 units PRBC AND underwent urgent L. RP angiogram in IR. Hemorrhage from multiple foci of L L3 artery embolized. Oliguric CAPRICE probably 2/2 contrast nephropathy. Family requests transfer to [facility] for scheduled plasmapheresis. DIAGNOSIS: Active Problems: CAPRICE (acute kidney injury) ([facility]) HTN (hypertension) History of heparin-induced thrombocytopenia Peripheral neuropathy APS (antiphospholipid syndrome) ([facility]) Recurrent deep vein thrombosis (DVT) ([facility]) CKD (chronic kidney disease) stage 3, GFR 30-59 ml/min (HFpEF) heart failure with preserved ejection fraction ([facility]) Obesity, Class III, BMI >= 40 (morbid obesity) E66.01 Retroperitoneal bleeding Acute blood loss anemia Retroperitoneal hemorrhage Malnutrition of mild degree ([facility]) Resolved Problems: * No resolved hospital [...] O/S First): Discharged as direct admit to [facility] for scheduled Plasmapheresis DISCHARGE MEDICATION: Discharge Medication List as of 10/25/2017 10:19 PM START taking these medications HYDROmorphone MANAGER BILLING CLINICIAN DOSE 0.5 mg/mL Inject 0.8 mL [...] for Stopping: FUTURE APPOINTMENTS: Q2 weeks plasmapheresis ar [facility], [facility] TIME OF CARE (Use first blank if not applicable): TIME OF CARE: Discharge Management: I personally spent greater than 30 minutes involved in the discharge management of this patient. SIGNATURE: Navi Giang APRN.CNP PATIENT NAME: Paloma Cannon DATE: November 06, 2017 TIME: 4:36 PM PAGER/CONTACT #: [phone] NURSING PROG Observed: 10/25/2017 Status: COMPLETED Source: [place] 7:15 PM [facility] REPOSITORY HNO ID: [id number] Author: Kenisha (Rn) JEFF Amaya Service: (none) Author Type: Registered Nurse Type: Nursing Progress Note Filed: 10/25/2017 10:49 PM Note Text: Nursing Progress Note Patient Name: Paloma Cannon Patient Location: [place] [address]: Report received from stefania PATEL. 1999: Assessment complete pt is AANDO x3 and following commands, complaints of flank pain 03/19, encouraged use of MANAGER BILLING. Sinus rhythm on the monitor. SpO2 is 100% on 6L NC, will titrate down as able. For complete assessment see flow sheet. 2144: Pt received bed at [facility], [facility] bed 6. Critical Care transport ETA is 1 hour. 2149: Report called to 60 JEFF Anguiano. 5: Belongings verified with pt. Percocet given early in anticipation of transport. 2219: Critical care transport at bedside, Dilaudid gtt discontinued. 2229: Pt transported off the unit in stable condition. Pt's father Morgan notified of transfer as husbands phone number was not working. This note was completed by: Kenisha Amaya RN CBC Collected: 10/25/2017 Status: F Source: [place] 6:14 PM CLINIC OTHER [place] REPOSITORY TYPE CODE TESTS RESULT OUT OF [...] MPV REPORT>> Performed By: #### CBC #### [place] [address] PROGRESS Observed: 10/25/2017 Status: COMPLETED Source: [place] 3:47 PM CLINIC OTHER [place] REPOSITORY HNO ID: [id number] Author: Navi Giang Service: Critical Care Author Type: Nurse Practitioner Type: Progress Notes Filed: 10/25/2017 4:14 PM Note Text: MICU PROGRESS NOTE WITH COORD CARE SERVICE DATE: 10/25/2017 SERVICE TIME: 12:00 Admission Date: 10/23/2017 Day #: 3 in the MICU. 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 She was discharged yesterday after she stabilized and reached her home around 6 PM. She started having severe left sided abdominal pain under her breast radiating down to thigh region and went back to [facility] ED. She had a CT abdomen at outside hospital. Showed extensive L. retroperitoneal Hemorrhage with mass effect to left kidney. Also less extensive hemorrhage present along the surface of the spleen and along mesentery. Transferred to MICU as [facility] had no beds. On arrival to MICU patient complained of severe excruciating pain in the left abdomen, 10/10 in intensity, sharp in quality radiating from Left breast to thigh region. Pain is constant per patient and only minimally improved with Dilaudid patient received in [facility]. ICU course: HG 4.8, lethargic c/o left flank pain poor relief with IV fentanyl. BP low but acceptable (SBP 100-120) Pt received 2 units emergency blood, IR consulted, underwent urgent L RP angiogram, found to have bleeding from multiple foci of the left L3 artery, -> embolized. 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 fistula [...] repet bmp 9PM Family requests transfer to [facility] . AC on hold in setting acute bleed 10/25: IV Lasix and Demedex diuretics did not improve u/o. Received 2 units PRBCs overnight with total of 7 units PRBCs since admission to . Is premedicated with diphenhydramine AND solu-cortef prior to each infusion of PRBCs.Nephrology consult to Dr Crandall who ordered HD through Apheresis port. Having problems with pain control. Has Dilaudid MANAGER BILLING. Added scheduled Percocet 1 q6h. Will continue [...] Gabapentin, reduced dose given renal failure -dilaudid MANAGER BILLING -0.2mg q 20 minutes no basal -percocet [...] daily) plasmapheresis due Monday will transfer to [facility] by Monday 10/30 Prophylactic: - PPI -a/c held, scd's WOOD MECHANIST -CFV fistula, Vascular Surgery consulted -. fistula created in 2013 no need for intervention FULL CODE difficult airway seen and discussed with Dr Wyatt On transfer to [facility] to [facility] Dr Womack contacting MICU staff to discuss transfer No [facility] bed avail. today 10/25. OBJECTIVE: VITAL SIGNS [...] ORAL q 6 H HYDROmorphone 0.5 mg/mL MANAGER BILLING CLINICIAN DOSE 0.4 mg 0.4 mg INTRAVENOUS [...] 20 mL 20 mL INTRAVENOUS PRN HYDROmorphone MANAGER BILLING 0.5 mg/mL in NaCl 0.9% 100 mL INTRAVENOUS CONTINUOUS predniSONE (DELTASONE) tab(s) 80 mg 80 mg ORAL DAILY sulfamethoxazole-trimethoprim 800-160 mg 1 tablet (BACTRIM DS,SEPTRA DS) 1 tablet ORAL - hydrocortisone topical cream 1% TOPICAL BID PRN INFUSIONS HYDROmorphone MANAGER BILLING 0.5 mg/mL Lines, Drains, and Airways Line [...] 25, 2017 TIME: 3:47 PM PAGER/CONTACT #: [phone] NURSING PROG Observed: 10/25/2017 Status: COMPLETED Source: [place] 2:25 PM [facility] OTHER CAMPUS REPOSITORY O ID: [id number] Author: Roxane (Rn) JEFF Campbell Service: Nursing Author Type: Registered Nurse Type: Nursing Progress Note Filed: 10/25/2017 4:57 PM Note Text: Nursing Progress Note Patient Name: Paloma Cannon [facility] Daily Note:0800- Report and SBAR with offgoing RN, see flow sheet for details. RETAIL DISTRICT MANAGER updated by offgoing nurse, will review labs etc 0830- Dr Crandall in for rounds, will order HD treatment, informed pt and discussed treatment 0900- Lab sent per order 0920- Soils Analyst in with MICU team for rounds, updated on status. Pt states pain in Left flank is at 40/10, orders placed for oral pain medication and will give clinician dose of dialudid 1000- Dialysis nurse arrived BS to set up for treatment 1220- Pt complaining of severe pain, rates 20/10, is undergoing HD treatment at this time. Notified Brandi RETAIL DISTRICT MANAGER pt is continuously having severe pain, will discuss pain medication orders with orthopedic dentist 1320- HD treatment completed, PRBC's sent for, will administer solu-cortef and benedryl 1345- heavy assist OOB to recliner, pt weak but able to stand and pivot. 1425- PRBC's started, pt remains in recliner, states pain is somewhat better. Drinking liquid supplements. Received benedry and solu medrol prior to transfusion This note was completed by: Roxane Campbell RN PROGRESS Observed: 10/25/2017 Status: COMPLETED Source: [place] 11:26 AM [facility] REPOSITORY HNO ID: [id number] Author: Allyson Rosas (Tech) Service: Dialysis Author Type: Kapok [employer] Machine Operator Type: Progress Notes Filed: 10/25/2017 11:27 AM Note Text: PATIENT EDUCATION TOPIC: PATIENT INFORMATION: Plan of Care PATIENT NAME: Paloma Cannon PATIENT LOCATION: [place] [address] [address] READINESS TO LEARN COGNITIVE ABILITY: Alert and [...] Rosas PROGRESS Observed: 10/25/2017 Status: COMPLETED Source: [place] 11:22 AM [facility] HNO ID: [id number] Author: Allyson Rosas (Tech) Service: Dialysis Author Type: Kapok [employer] Machine Operator Type: Progress Notes Filed: 10/25/2017 12:50 PM [...] off. Report given to floor RN-ALLYSON Marquez CASE MANAGEM Observed: 10/25/2017 Status: COMPLETED Source: [place] 10:52 AM [facility] REPOSITORY HNO ID: [id number] Author: Aria Albarran (Sw) Service: Care Management Author Type: Painting Department Supervisor Type: Care Mgt Progress Note Filed: 10/25/2017 10:54 AM Note Text: CARE MANAGEMENT PROGRESS NOTE SERVICE DATE: 10/25/2017 SERVICE TIME: 10:52 AM LOS: 2 days Per huddle. Pt is being transferred to [facility]. Potentially before Monday. CM to follow and support. Pt home with spouse. Likely no skilled needs. SIGNATURE: ROBBI Dahl PATIENT NAME: Paloma Cannon DATE: October 25, 2017 TIME: 10:52 AM PAGER/CONTACT #: [phone] HEPATITIS B SURF. AG Collected: 10/25/2017 Status: F Source: [place] 10:35 AM [facility] REPOSITORY TYPE CODE TESTS RESULT OUT OF REFERENCE UNITS RANGE LAB HBSAG Negative Hepatitis B Negative Surf. Ag Performed By: #### HBSAG #### [place] [address] PROGRESS Observed: 10/25/2017 Status: COMPLETED Source: [place] 9:07 AM [facility] REPOSITORY HNO ID: [id number] Author: Sapna Wyatt Service: Critical Care Author Type: Physician Type: Progress Notes Filed: 10/25/2017 6:30 PM Note Text: [facility] STAFF PHYSICIAN NOTE OF PERSONAL INVOLVEMENT IN [...] stents on AC, HIT, recent admission to [facility] (10/13 - 10/22) for acute hypoxic resp failure due to DAH requiring PLEX, who presented to OSH c/o left-sided abdominal pain, work-up c/w acute blood loss anemia from retroperitoneal bleeding, transferred to [facility] for further mgmt. ?? PLAN:? ?? [...] due to acute hemorrhage. Awaiting transfer to [facility] Main [place] as she will need plasmapheresis. ? Patient/Family [...] minutes. SIGNATURE: Sapna Wyatt MD [facility] PAGER:[phone] DATE of SERVICE: 10/25/17 TIME of SERVICE: 9:13 AM CONSULT PROG Observed: 10/25/2017 Status: COMPLETED Source: [place] 8:53 AM [facility] OTHER CAMPUS REPOSITORY O ID: [id number] Author: Shaheen Crandall Service: Hypertension AND Nephrology [...] 20 mL 20 mL INTRAVENOUS PRN HYDROmorphone MANAGER BILLING 0.5 mg/mL in NaCl 0.9% 100 mL [...] ?F) Axillary - - - - - 04/17/18 1900 128/69 - - 89 14 96 [...] Date 10/25/17 07 - 10/26/17 0659 Shift 8731-3112 4884-1998 9318-6465 24 Hour Total I N T A [...] AM CBC Collected: 10/25/2017 Status: F Source: [place] 8:53 AM CLINIC OTHER CAMPUS REPOSITORY TYPE [...] nRBC 0.22 Performed By: #### CBC #### [place] [address] COMP METABOLIC PANEL Collected: 10/25/2017 Status: F Source: [place] 5:00 AM CLINIC OTHER CAMPUS REPOSITORY TYPE CODE [...] By: #### CMP, MG1, PHOS, CBCDIF #### [facility] [address] [place] [address] MAGNESIUM Collected: 10/25/2017 Status: F Source: [place] 5:00 AM CLINIC OTHER CAMPUS REPOSITORY TYPE CODE TESTS RESULT OUT OF REFERENCE UNITS RANGE LAB MG 1.7-2.6 mg/dL Magnesium 2.1 Performed By: #### CMP, MG1, PHOS, CBCDIF #### [facility] [address] [place] [address] PHOSPHORUS Collected: 10/25/2017 Status: F Source: [place] 5:00 AM [facility] OTHER CAMPUS REPOSITORY TYPE CODE TESTS RESULT OUT OF REFERENCE UNITS RANGE LAB PHOS 2.5-4.5 mg/dL High Phosphorus 8.6 Performed By: #### CMP, MG1, PHOS, CBCDIF #### [place] [address] CBC AND DIFFERENTIAL Collected: 10/25/2017 Status: F Source: [place] 5:00 AM [facility] REPOSITORY TYPE CODE TESTS RESULT [...] Abs Lymph Low 0.22 LAB MONOS % Hughes% 9.0 LAB AAMONO <0.87 k/uL Abs Hughes High 1.97 LAB EOS % Eosin% 0.0 LAB AAEOS <0.46 k/uL Abs Eosin 0.00 LAB BASOS % Baso% 0.0 LAB AABASO <0.11 k/uL Abs Baso 0.00 LAB ABIMMG k/uL ANC(includeSEG+BAN 19.47 D) LAB META % [place]% 1.0 LAB ANIIMI Anisocytosis Present LAB LFTIMI Left Shift Present LAB OVAIMI Ovalocytes Few LAB POLIMI Polychromasia Slight LAB PLTEST Platelet Estimate Platelet estimate decreased LAB DTYP DTYPE Manual Diff Performed By: #### CMP, MG1, PHOS, CBCDIF #### [place] [id number] [place] [address] CBC Collected: 10/24/2017 Status: F Source: [place] 10:30 PM [facility] OTHER [place] REPOSITORY TYPE CODE TESTS RESULT OUT OF [...] nRBC 0.12 Performed By: #### CBC #### [place] [id number] [place] [address] BASIC METABOLIC PANL Collected: 10/24/2017 Status: F Source: [place] 10:30 PM [facility] OTHER [place] REPOSITORY TYPE CODE TESTS RESULT OUT OF [...] Races 20 Performed By: #### BMP #### [facility] [address] [place] [id number] Observed: 10/24/2017 Status: F Source: [place] RESPIRATORY CULT/STAIN 8:00 PM [facility] OTHER [place] REPOSITORY Smear Result - Many Gram negative diplococci --> ABNORMAL ALERT Moderate --> ABNORMAL ALERT Yeast --> ABNORMAL ALERT Few --> ABNORMAL ALERT Gram positive bacilli --> ABNORMAL ALERT Many P olymorphonuclear leukocytes Few Epithelial cells Culture Result - Many Moraxella catarrhalis --> ABNORMAL ALERT Beta lactamase Positive --> ABNORMAL ALERT Many Normal respiratory zoila present Performed By: #### RCULST #### [facility] [address] [place], [place] [address] NURSING PROG Observed: 10/24/2017 Status: COMPLETED Source: [place] 7:58 PM [facility] REPOSITORY HNO ID: [id number] Author: Angella (Rn) JEFF Barreto Service: Nursing Author Type: Registered Nurse Type: Nursing Progress Note Filed: 10/25/2017 8:08 AM Note Text: Nursing Progress Note Patient Name: Paloma Cannon Patient [facility]: [place] [address] Daily Note: 1929- Bedside report received from off going RN and care of patient assumed. 1999- Initial assessment completed as documented. Patient up to bedside commode to void. Patient had an XL BM. Patient has Dilaudid MANAGER BILLING pump infusing via bolus at 0.2mg. 2020- Medications administered as ordered, please refer to MAR for full details. 2099- Patient order for blood draws discussed with Dr. Phan. Per LIP labs to drawn after 2200 due to administration of Potassium reducing medications. 2229- Blood drawn and sent to lab as ordered. 232- Patient lab results received and discussed with [...] Medications administered as ordered, please refer to [facility] for full details for full details. 0200- Patient resting comfortably, will continue to monitor. 0235- Transfusion completed, no transfusion reaction noted. 0400- Patient reassessment completed as documented, no clinical changes noted. Blood drawn and sent to lab as ordered. Please refer to Doc flow sheets for full assessment details. 0600- Patient turned and repositioned. Medication administered as ordered, please refer to [facility] for full details. 0720- Bedside report given to oncoming RN and care of patient relinquished. This note was completed by: Angella Barreto RN PROGRESS Observed: 10/24/2017 Status: COMPLETED Source: [place] 7:47 PM CLINIC OTHER CAMPUS REPOSITORY HNO ID: [id number] Author: Radha Brown Service: Critical Care Author [...] peripheral neuropathy, post-phlebitic syndrome?who was admitted to [facility] MICU on 10/13 for alveolar hemorrhage. She [...] mesentery. She was transferred to MICU as [facility] had no beds. On arrival to MICU [...] artery, -> embolized. 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 fistula created in 2013 no need for intervention will arrange for US eval for thrombus. 4 HG drifting down, (expected). required 2 units PRBC today. oliguric CAPRICE, UOP 0-5 cc/hr overnight, with rising CR, potassium 6 Nephrology consulted (contrast nephropathy), conservative management, may require HD, holding today. IV hyperkalemia protocol, kayexalate repet bmp 9PM Family requests transfer to [facility] . AC on hold in setting acute bleed Assessment/Plan retroperitoneal bleed 10/23. HG 4.8, required 4 units PRBC underwent IR embolization of left lumbar artery serous output from right groin pouch placed HG continues to drift down (expected), required additional 2 units post procedure Neuro: Peripheral neuropathy left flank pain Plan: -add Gabapentin, reduced dose given renal failure -dilaudid MANAGER BILLING -0.2mg q 20 minutes no basal Cardiovascular: [...] bilateral iliac stents and IVC endograft, on shelter AC with warfarin, plasmapharesis q2 weeks, prednisone 5 mg qD); aslo has Hx of HIT Dx 2013 by . discharged 10/22 on fondaparinux currently on hold Plan: Consulted hematology, appreciate recs --plasmapheresis q 2 weeks and prednisone 80 mg daily; a prednisone taper by 20 mg every four days (with maintenance of prednisone 5 mg daily) plasmapheresis due Monday Prophylactic: - PPI WOOD MECHANIST -CFV fistula, Vascular Surgery consulted -. fistula created in 2013 no need for intervention FULL CODE difficult airway seen and discussed with Dr Wyatt on AM and late afternoon rounds transfer orders in for transfer to [facility] Dr Womack contacting MICU staff to [...] BALANCE Intake/Output Summary (Last 24 hours) at 10/24/171946 Last data filed at 10/24/17 1900 Gross [...] 20 mL 20 mL INTRAVENOUS PRN HYDROmorphone MANAGER BILLING 0.5 mg/mL in NaCl 0.9% 100 mL INTRAVENOUS CONTINUOUS predniSONE (DELTASONE) tab(s) 80 mg 80 mg ORAL DAILY sulfamethoxazole-trimethoprim 800-160 mg 1 tablet (BACTRIM DS,SEPTRA DS) 1 tablet ORAL - hydrocortisone topical cream 1% TOPICAL BID PRN INFUSIONS HYDROmorphone MANAGER BILLING 0.5 mg/mL Lines, Drains, and Airways Line [...] NURSING PROG Observed: 10/24/2017 Status: COMPLETED Source: [place] 6:22 PM [facility] OTHER CAMPUS REPOSITORY HNO ID: [id number] Author: Dary SanchezRn) JEFF Mueller Service: (none) Author Type: Registered Nurse Type: Nursing Progress Note Filed: 10/24/2017 7:47 PM Note Text: Nursing Progress Note Patient Name: Paloma Cannon Patient Location: -MICU36/[facility]-ICU-36 Daily Note: 0730 report received,pt remains on [...] ashley well.pt attempting to have a BM unsuccessful.RETAIL DISTRICT MANAGER informed and orders placed. 1745 pt up in the ch from [facility]. 1800 pt remains up in the ch. in to see the pt update given.Vss.U/o remains minimal 1930 report to relief nurse. This note was completed by: Dary Mueller RN [facility] Observed: 10/24/2017 Status: COMPLETED Source: [place] 3:10 PM [facility] OTHER CAMPUS REPOSITORY HNO ID: [id number] Author: Estela Sanchez (Chaplain) Service: Spiritual Care Author Type: Casting Machine Operator Automatic Type: Allied Health Filed: 10/24/2017 3:14 PM Note Text: SPIRITUAL CARE PROGRESS NOTE SERVICE DATE: 10/24/2017 SERVICE TIME: 1500 Casting Machine Operator Automatic provided spiritual support through reflective listening and reinforcing ways pt uses to comfort and calm her self during anxiety attacks. Casting Machine Operator Automatic shared Psalm 23 and prayed with pt, who became tearful and expressed she had been comforted by the Psalm and the prayer. Pt expressed interest in using lavender for comfort and ironer machine offered to bring some lavender scented inhalers, lotions, etc., to the pt which she readily accepted. Casting Machine Operator Automatic will bring this to pt later this afternoon and continue support. To contact the Spiritual Care Department: Please call [phone]. SIGNATURE: Chaplain Nova PATIENT NAME: Paloma Cannon DATE: October 24, 2017 TIME: 3:10 PM PAGER/CONTACT #: [phone] BASIC METABOLIC PANL Collected: 10/24/2017 Status: F Source: [place] 1:55 PM CLINIC OTHER CAMPUS REPOSITORY TYPE [...] Races 22 Performed By: #### BMP #### [place] [address] THROMBOGRAPH PANEL Collected: 10/24/2017 Status: F Source: [place] 1:55 PM CLINIC OTHER CAMPUS REPOSITORY TYPE [...] By: #### TEGPNP #### 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 She was [...] mesentery. She was transferred to MICU as [facility] had no beds. On arrival to MICU [...] artery, -> embolized. 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 fistula [...] 20 mL 20 mL INTRAVENOUS PRN HYDROmorphone MANAGER BILLING 0.5 mg/mL in NaCl 0.9% 100 mL [...] (ml) [phone] Net (ml) -220 0468 736 MNT Billing Type: Initial Assess/15 min 5 units SIGNATURE: Micaela Rice RD, LD PATIENT NAME: Paloma Cannon DATE: October 24, 2017 TIME: 12:28 PM PAGER: For further assistance and weekends please page the Group Pager -[phone] CBC Collected: 10/24/2017 Status: F Source: [place] 12:00 PM CLINIC OTHER CAMPUS REPOSITORY TYPE [...] nRBC 0.14 Performed By: #### CBC #### [place] [address] CONSULT Observed: 10/24/2017 Status: COMPLETED Source: [place] 10:03 AM [facility] REPOSITORY HNO ID: [id number] Author: Shaheen Crandall Service: Hypertension AND Nephrology Author Type: Physician Type: Consults Filed: 10/24/2017 10:19 AM Note Text: Dictation number: [id number] CAPRICE on CKD 3 CAPRICE likely from [...] ALLIED HEALTH Observed: 10/24/2017 Status: COMPLETED Source: [place] 9:24 AM [facility] REPOSITORY HNO ID: [id number] Author: Kandis SanchezRtAllyson Isaac Service: Radiology Author Type: Kapok And Cotton Machine Operator Type: Allied Health Filed: 10/24/2017 9:24 AM [...] 1V FRONTAL Observed: 10/24/2017 Status: F Source: [facility] 9:22 AM [facility] REPOSITORY * * *Final Report* [...] compatible with volume overload. Cardiomegaly again seen Pie Topper: MURTAZA Transcribe Date/Time: Oct 24 2017 9:32A Dictated by : ENA VILLA MD This examination was interpreted and the report reviewed and electronically signed by: ENA VILLA MD on Oct 24 2017 9:35AM EST [id number] CBC Collected: 10/24/2017 Status: F Source: [place] 8:40 AM [facility] OTHER CAMPUS REPOSITORY TYPE CODE TESTS RESULT [...] nRBC 0.17 Performed By: #### CBC #### [place] [address] THROMBOGRAPH PANEL Collected: 10/24/2017 Status: F Source: [place] 8:40 AM [facility] OTHER CAMPUS REPOSITORY TYPE CODE TESTS RESULT [...] By: #### TEGPNP #### [facility] [address] [place], [place] [address] NURSING PROG Observed: 10/24/2017 Status: COMPLETED Source: [place] 7:46 AM CLINIC OTHER CAMPUS REPOSITORY HNO ID: [id number] Author: Saundra (Rn) JEFF Choe Service: Critical Care Author Type: Registered Nurse Type: Nursing Progress Note Filed: 10/24/2017 8:08 AM Note Text: Nursing Progress Note Patient Name: Paloma Cannon Patient Location: [place] [address] Daily Note: 1930 Report received Complete assessment to follow 1999 Complete assessment done. Pt is awake, alert, oriented x3 Dilaudid MANAGER BILLING controlling pt's pain at this time NSR to BST on arrt technologist. Speeh clear VSS Pt is on O2 at 6 L NC SAO2 mid to upper 90's Respiratory rate will decrease to 6 when the pt is sleeping. Minimal yellow urine noted. Moderate amount of serous drainage from the right groin Site from IR. Taking po fluids without difficulty. 1999 Blood cultures drawn by the guyline operator as ordered 2029 CBC., BMP, Blood cultures and Thrombograph blood work drawn from the Samantha catheter and sent to lab as ordered. 2234 Ese Arias from labs called regarding the Thrombograph panel. Stated that this is a mail out to [facility] and lab would need to be [...] Updated on assessment and events of the assistant shift supervisor. 0735 PRBC's completed at this time. No adverse reaction noted. This note was completed by: Saundra Choe RN PROGRESS Observed: 10/24/2017 Status: COMPLETED Source: [place] 7:25 AM CLINIC OTHER CAMPUS REPOSITORY HNO ID: [id number] Author: Sapna Wyatt Service: Critical Care Author Type: Physician Type: Progress Notes Filed: 10/24/2017 12:36 PM Note Text: [facility] STAFF PHYSICIAN NOTE OF PERSONAL INVOLVEMENT IN [...] stents on AC, HIT, recent admission to [facility] (10/13 - 10/22) for acute hypoxic resp failure due to DAH requiring PLEX, who presented to OSH c/o left-sided abdominal pain, work-up c/w acute blood loss anemia from retroperitoneal bleeding, transferred to [facility] for further mgmt. ? PLAN: ? [...] hospitalization until then will need transfer to [facility] [place]. HTN - hold home meds for now. [...] minutes. SIGNATURE: Sapna Wyatt MD [facility] PAGER:[phone] DATE of SERVICE: 10/24/17 TIME of SERVICE: 12:36 PM CONSULT Observed: 10/24/2017 Status: COMPLETED Source: [place] 5:57 AM CLINIC OTHER CAMPUS REPOSITORY HNO ID: [id number] Author: Lydia Roque Service: Vascular Surgery Author [...] on Prednisone, Cyclophosphamide, and recently admitted to [facility] 10/13- requiring mechanical ventilation and PLEX), DVT/PE?needing extensive percutaneous thrombectomy of her IVC and lower extremity veins followed by placement of B/L?iliac venous?stents and an?endograft into her IVC, on long-term AC, HIT, CKD III, HTN, HFrEF, peripheral neuropathy, post phlebitic syndrome, who was transferred from [place] ED for retroperitoneal bleeding on 10/23/17. She is now s/p IR embolization of left L3 lumbar artery. Vascular surgery is consulted for WOOD MECHANIST to CFV fistula found during procedure. Per patient she has had these fistula since her multiple surgeries in [place] in 2013. After the surgery, she experiences lower extremity swelling, however she is able to ambulate. Her most recent DVT can was in 10/14/17 in [facility] and was negative for acute DVT. She has been on fondaparinux during her hospitalization(history of HIT) and prior to that has been mainatained on coumadin. Presently, she has no acute lower extremity symptoms except the right groin access site painful. Summary of Operations in [facility]: 10/02/2013 OPERATION PERFORMED: 1. Urgent control of [...] Cannulation of left internal jugular vein with 17-[employer] arterial cannula. 3. Cannulation of right internal jugular vein with 26-Belizean GORE DrySeal for the Angiovac suction catheter. [...] 0 COMPOUNDED PRESCRIPTION Outpatient physical therapyPlease call [phone] to make an appointment Disp: 1 Each [...] 20 mL 20 mL INTRAVENOUS PRN HYDROmorphone MANAGER BILLING 0.5 mg/mL in NaCl 0.9% 100 mL INTRAVENOUS CONTINUOUS predniSONE (DELTASONE) tab(s) 80 mg 80 mg ORAL DAILY sulfamethoxazole-trimethoprim 800-160 mg 1 tablet (BACTRIM DS,SEPTRA DS) 1 tablet ORAL - diphenhydrAMINE 25 mg (BENADRYL) 25 mg ORAL [...] - 103 10 94 % - - 04/16/18 1700 129/115 - - 101 18 98 [...] ?F) Axillary 107 - - - - 04/16/18 0930 113/67 - - 104 14 100 [...] or gangrene?: No DATA: Laboratory: Recent Labs 10/24/175 10/24/17 0020 10/23/172029 WBC 28.42* 26.37* 23.91* HB 6.7* 6.9* 7.5* HCT 20.0* 20.7* 22.9* PLT 151 151 168 Recent Labs 10/24/17 0405 10/24/17 0030 10/23/17202910/23/17 0630 10/22/17411 NA -- 130* 132 139 138 K -- 5.9* 6.2* 4.1 3.8 BUN -- 69* 66* 63* 63* CREAT -- 2.05* 1.86* 1.35 1.38* GLUC -- 154* 172* 158* 96 MG 2.1 -- -- 2.0 2.1 Recent Labs 10/22/17411 INR 1.1 Radiology: I have personally reviewed [...] of the left L3 lumbar artery. ?2.4 Bel[place]an microcatheter system was then used to select [...] on Prednisone, Cyclophosphamide, and recently admitted to [facility] 10/13- requiring mechanical ventilation and PLEX), DVT/PE?needing extensive percutaneous thrombectomy of her IVC and lower extremity veins followed by placement of B/L?iliac venous?stents and an?endograft into her IVC, on long-term AC, HIT, CKD III, HTN, HFrEF, peripheral neuropathy, post phlebitic syndrome, who was transferred from [facility] for retroperitoneal bleeding on 10/23/17. She [...] 24, 2017 TIME: 5:57 AM PAGER/CONTACT #: [phone] Agree wit keith. Pt seen and examined. Av fistulae in groin as noted. No sign of severe pain or active bleeding. Images reviewed. These fistulae are helpful for her prior venous interventions. Thus, should be left in place and simply observed. Please call for further concerns. thx.Lydia Mancini MD XR ABDOMEN 1V SUPINE Observed: 10/24/2017 Status: F Source: [place] 5:26 AM [facility] REPOSITORY * * *Final Report* [...] small bowel. Enteric tube has been removed. Pie Topper: MURTAZA Transcribe Date/Time: Oct 24 2017 5:33A Dictated by : WILFRED CURRY MD This examination was interpreted and the report reviewed and electronically signed by: WILFRED CURRY MD on Oct 24 2017 5:35AM EST [id number] ALLIED HEALTH Observed: 10/24/2017 Status: COMPLETED Source: [place] 5:16 AM [facility] REPOSITORY HNO ID: [id number] Author: Aline (RtAllyson Calderón Service: Radiology Author Type: [employer] Machine Operator Type: Allied Health Filed: 10/24/2017 5:27 AM [...] URINALYSIS WITH Collected: 10/24/2017 Status: F Source: [facility] 5:00 AM [facility] REPOSITORY TYPE CODE TESTS RESULT OUT OF RANGE REFERENCE UNITS LAB UCOL Yellow Color Abnormal Straw Alert LAB [facility] Clear Clarity Abnormal Hazy Alert LAB UGLUC Negative mg/dL Glucose, Abnormal Urine 150 Alert LAB UBIL Negative Bilirubin, Urine Negative LAB UK[facility] Negative Ketones, Urine Negative LAB [facility] 1.005-1.030 Specific [place], Ur 1.009 LAB UHGB Negative Abnormal Hemoglobin/Blood, [...] Mucus Present Performed By: #### UAWMIC #### [id number] [place] [address] CBC Collected: 10/24/2017 Status: F Source: [place] 4:05 AM [facility] OTHER CAMPUS REPOSITORY TYPE CODE TESTS RESULT [...] Performed By: #### CBC, MG1, PHOS #### [id number] [place] [address] MAGNESIUM Collected: 10/24/2017 Status: F Source: [place] 4:05 AM [facility] OTHER [place] REPOSITORY TYPE CODE TESTS RESULT OUT OF REFERENCE UNITS RANGE LAB MG 1.7-2.6 mg/dL Magnesium 2.1 Performed By: #### CBC, MG1, PHOS #### [place] [address] PHOSPHORUS Collected: 10/24/2017 Status: F Source: [place] 4:05 AM [facility] OTHER CAMPUS REPOSITORY TYPE CODE TESTS RESULT OUT OF REFERENCE UNITS RANGE LAB PHOS 2.5-4.5 mg/dL High Phosphorus 7.8 Performed By: #### CBC, MG1, PHOS #### [place] [address] BASIC METABOLIC PANL Collected: 10/24/2017 Status: F Source: [place] 12:30 AM CL[facility] OTHER [place] REPOSITORY TYPE CODE TESTS RESULT OUT OF [...] Races 29 Performed By: #### BMP #### [place] [address] CBC Collected: 10/24/2017 Status: F Source: [place] 12:20 AM CLIN[facility] OTHER CAMPUS REPOSITORY TYPE [...] nRBC 0.19 Performed By: #### CBC #### [facility] [id number] HOSP Observed: 10/24/2017 Status: COMPLETED Source: [place] 12:00 AM [facility] MAIN CAMPUS REPOSITORY Patient:Paloma Cannon MRN: <[id number]> Height:5' 3(1.6 m) Weight:251 lb 15.8 oz [...] sevelamer carbonate 800 mg tab(s) ([place]) HYDROmorphone MANAGER BILLING 0.5 mg/mL in NaCl 0.9% 100 mL [...] Bacteremia [R78.81] History of HIT (heparin-induced thrombocytopenia) ([facility]) [D75.82] Recurrent deep vein thrombosis (DVT) (HCC) [...] Aline Engle MD 10/26/2017 4:29 AM Addendum [facility] PATIENT NAME: Paloma Cannon History of [...] d/sandy on PO prednisone. She presented to [place] ED on 10/23 due to severe stabbing left-sided abdominal pain radiating to left arm/leg. She had a CT abdomen that showed extensive left retroperitoneal hemorrhage with mass effect to the left kidney, and less extensive hemorrhage along the surface of the spleen and along the mesentery. She was transferred to [place] as ICU [facility]. ICU course at [place]: 10/23 Hb 4.8, received 2 units of [...] morphine had no affect and even dilaudid MANAGER BILLING was insufficient, may need to readdress, dilaudid MANAGER BILLING for now Peripheral neuropathy: gabapentin 200 q12, at home TID, but now renally dosed Cardiovascular: HF: mildly decreased systolic function, diastolic function indeterminate on 10/13/17 ECHO HTN - hold home amlodipine Respiratory: DAH: cyclophosphamide on hold until 10/30, continue bactrim - continue prednisone 80 mg daily on day 48 Increased oxygen requirement likely 2/2 diffuse anasarca and difficulty w/ deep breathing - consult to nephrology with HD GI: Diet: renal Constipation: senna BID in setting of opiates, last BM yesterday Elevated liver enzymes, possibly 2/2 volume overload in the setting of acute RF Retroperitoneal hematoma - see hematology Renal CAPRICE on CKD III, 2/2 contrast, now requiring dialysis - first HD at [place] on 10/25 with tunneled dialysis catheter placement [...] 7.5) - Antiphospholipid antibody with hypercoagulable state ([facility]) 11/29/2016 Hx of APL syndrome c/b [...] nephrotoxic agents - DVT (deep venous thrombosis) ([facility]) - Elevated CA-125 11/30/2013 244 - Essential hypertension 10/08/2015 Stable on home medications Plan: -continue to monitor on home meds - 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 Bivalirudin to Warfarin bridging - HIT (heparin-induced thrombocytopenia) ([facility]) - Nontoxic multinodular goiter - Obese [...] Medications/Allergies Prescriptions Prior to Admission: [] HYDROmorphone MANAGER BILLING CLINICIAN DOSE 0.5 mg/mL Inject 0.8 mL [...] bilateral iliac stents and IVC endograft, on shelter AC with warfarin, plasmapharesis q2 weeks, prednisone 5 mg qD), 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 She was discharged yesterday after she stabilized and reached her home around 6 PM. She started having severe left sided abdominal pain under her breast radiating down to thigh region and went back to [facility] ED. She had a CT abdomen at outside hospital. Showed extensive L. retroperitoneal Hemorrhage with mass effect to left kidney. Also less extensive hemorrhage present along the surface of the spleen and along mesentery. Transferred to MICU as [facility] had no beds. On arrival to MICU [...] artery, -> embolized. 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 fistula [...] repet bmp 9PM Family requests transfer to [facility] . AC on hold in setting acute bleed 10/25: IV Lasix and Demedex diuretics did not improve u/o. Received 2 units PRBCs overnight with total of 7 units PRBCs since admission to . Is premedicated with diphenhydramine AND solu-cortef prior to each infusion of PRBCs.Nephrology consult to Dr Crandall who ordered HD through Apheresis port. Having problems with pain control. Has Dilaudid MANAGER BILLING. Added scheduled Percocet 1 q6h. Will continue [...] Gabapentin, reduced dose given renal failure -dilaudid MANAGER BILLING -0.2mg q 20 minutes no basal -percocet [...] low dose lasix Plan: - Monitor BUN/Cr -zungia for accurate I/O in setting oliguric CAPRICE -Nephrology consulted - Dr Crandall -HD ordered per Dr Crandall-2 liters removed Hematology: - hx of anti-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 endograft, on shelter AC with warfarin, plasmapharesis q2 weeks, prednisone 5 mg qD); aslo has Hx of HIT Dx 2013 by [facility]. discharged 10/22 on fondaparinux currently on hold Plan: Consulted hematology, appreciate recs --plasmapheresis q 2 weeks and prednisone 80 mg daily; a prednisone taper by 20 mg every four days (with maintenance of prednisone 5 mg daily) plasmapheresis due Monday will transfer to [facility] by Monday 10/30 Prophylactic: - PPI -a/c held, scd's WOOD MECHANIST -CFV fistula, Vascular Surgery consulted -. fistula created in 2013 no need for intervention FULL CODE difficult airway seen and discussed with Dr Wyatt On transfer to [facility] to [facility] Dr Womack contacting MICU staff to discuss transfer No [facility] bed avail. today 10/25. SIGNATURE: Aline Engle MD, PGY-1 PATIENT NAME: Paloma Cannon DATE: October 26, 2017 TIME: 12:09 AM PAGER: [phone] Note: These recommendations are not final until staffed by provider [facility] ST[facility]FF PHYSICIAN NOTE OF PERSONAL INVOLVEMENT IN [...] overload Poor appetite due to edema Requesting operational risk consultant involvement from those involved on regular [...] services: 50 minutes Britney Brady MD Respiratory Elrosa Beeper Number: [id number] Date of Service: 10/26/2017 Previous Version Linnette [...] 02/20/2016 FAMILY HISTORY: Mother: Father: Siblings: { :77099::no} SOCIAL HISTORY: Smoking: { :74836::No} Drink alcohol: { :71007::no} : { :73420::no} Children: { :87947::no} Work outside the home: { :22482::no} Drug abuse: { :16344::no} STD's: { :13427::no} diphenhydrAMINE (BENADRYL) 50 mg capsule Take 1 [...] 800 mg ORAL TID w MEALS HYDROmorphone MANAGER BILLING 0.5 mg/mL in NaCl 0.9% 100 mL [...] Elevated cardiac enzymes CANCER SCREENING QUESTIONS: { :75578} Objective REVIEW OF SYSTEMS: GENERAL: Fever: { :32240::No} Chills: { :60169::No} Night sweats: { :72420::No} Changes in weight: { :35521::No} NEUROLOGICAL: Headaches: { :27531::No} Seizures: { :21056::No} Passing out: { :27896::No} Numbness, tingling or sensation of pins and needles: { :13701::No} HEAD, EYES, EARS, NOSE, AND THROAT: Changes in hearing: { :64179::No} Changes in vision: { :62623::No} Nose bleeds: { :18426::No} CARDIOVASCULAR: Chest pain or pressure: { :32906::No} Palpitations: { :04916::No} Irregular heart rate: { :88793::No} RESPIRATORY: Cough: { :52207::No} Wheezing: { :66487::No} Shortness of breath: { :44327::No} Shortness of breath with exertion: { :56806::No} Coughing up blood: { :73585::No} GASTROINTESTINAL: Abdominal discomfort: { :42910::No} Nausea: { :69330::No} Vomiting: { :30453::No} Diarrhea: { :18029::No} Constipation: { :29914::No} Difficulty swallowing: { :04783::No} Pain with swallowing: { :92773::No} Stomach pain after eating: { :34362::No} Passing blood with bowel movement: { :54004::No} Black tarry stool: { :07443::No} GENITOURINARY: Pain with urination: { :23591::No} Blood in urine: { :71434::No} FRUIT THINNER: Abnormal vaginal bleeding: { :04595::No} History of loss: { :78714::No} EXTREMITY: Edema (swelling): { :78208::No} Pain with walking: { :25193::No} MUSCULOSKELETAL: Joint pain: { :70050::No} Joint swelling: { :24111::No} Back pain: { :73764::No} Muscle pain or ache: { :46859::No} SKIN: Rash: { :92564::No} Lesions: { :39943::No} Sores: { :40100::No} Ulcers: { :66864::No} Tenderness: { :49352::No} Skin cancer: { :01102::No} HEMATOLOGY: Easy bruising: { :48187::No} Blood transfusions: { :92284::No} PSYCHOLOGICAL: Do you ever feel blue or nervous: { :90169::No} OTHER: PHYSICAL EXAM: Vital Signs: BP 144/71 Pulse 97 Temp 36.5 ?C (97.7 ?F) (Oral) Resp 13 Ht 160 cm (5' 3) Wt 114.3 kg (251 lb 15.8 oz) SpO2 97% BMI 44.64 kg/m2 General: Neck: Cardiac: Respiratory: Abdominal/GI: Extremity: Skin: Pulse/vascular exam: DATA: Diagnostic tests reviewed for today's visit: { :289448} Component Latest Ref Rng AND Units 10/23/2017 [...] Destinee Flores MD, 10/26/2017 8:48 AM Incomplete [facility] ST[facility] PHYSICIAN NOTE OF PERSONAL INVOLVEMENT IN CARE I have reviewed the progress note obtained and documented by the nurse practitioner/physician cement tester assistant and I personally participated in the [...] minutes. SIGNATURE: Destinee Flores MD [facility] PAGER:[phone] DATE of SERVICE: October 26, 2017 TIME of SERVICE: 8:17 AM Juan Christopher MD 10/26/2017 8:44 AM Incomplete [facility] Initial Consult Note PATIENT NAME: Paloma Cannon [facility] #: [id number] ATTENDING PHYSICIAN: DATE OF SERVICE: 10/26/2017 [address] REASON FOR CONSULT: Consulting PHYSICIAN: HPI: Ms. [...] on PO prednisone. ? She presented to [place] ED on 10/23 due to severe stabbing left-sided abdominal pain radiating to left arm/leg. She had a CT abdomen that showed extensive left retroperitoneal hemorrhage with mass effect to the left kidney, and less extensive hemorrhage along the surface of the spleen and along the mesentery. She was transferred to [place] as ICU at [facility] was full. ? ICU course at [place]: 10/23 Hb 4.8, received 2 units of [...] management of alveolar hemorrhage. ? Presented to [facility] ED with hemoptysis/SOB - found to be [...] 800 mg ORAL TID w MEALS HYDROmorphone MANAGER BILLING 0.5 mg/mL in NaCl 0.9% 100 mL [...] AST 63* 73* -- -- -- -- TBILI 1.1 0.8 -- -- -- -- [...] given diffuse alveolar hemorrhage. Pt discussed with . Juan Christopher MD Fellow, Hematology and Medical Oncology Pager: [phone] Catherine Oh MD, MD 10/26/2017 1:28 PM [...] Medications Prescriptions Prior to Admission: [] HYDROmorphone MANAGER BILLING CLINICIAN DOSE 0.5 mg/mL Inject 0.8 mL [...] 800 mg ORAL TID w MEALS HYDROmorphone MANAGER BILLING 0.5 mg/mL in NaCl 0.9% 100 mL [...] October 26, 2017 TIME: 9:04 AM PAGER: [phone] LissethJUAN PABLO Logan 10/26/2017 1:51 PM Signed CARE MANAGEMENT: ASSESSMENT AND DISCHARGE PLAN SERVICE DATE: 10/26/2017 SERVICE TIME: 9:15A.M. PRIMARY CARE PHYSICIAN: PEYTON ROGERS MD ADMISSION STATUS: Inpatient Needs Prior to Discharge: To Be Determined MEDICAL: Patient/Recruiting Operations Consultant Stated Goals: To have reduction in symptoms Health Insurance: [facility] MEDICARE Health Issues Impacting Discharge Plan: None Last Admission Date: Previous admit date: 10/23/2017 Is this Within the Past 30 days? No Advance Directive: Current Advance Directive: None Communication Center Coordinator Assisted with AD Completion: Yes Action: Education [...] Wheelchair Has the Patient Been in a Alf Facility in the Past 30 days? No [...] 0 I feel financially burdened by my [id number] expenses for my prescription medication: Disagree completely [...] at home. The Oxygen supplying company is [facility] . Pt;s medical goal is for bleeding to stop, and live a normal life. Pt needs are TBD. SIGNATURE: BRANDI ConnorsManuel PATIENT NAME: Paloma Cannon DATE: October 26, 2017 TIME: 9:40 AM PAGER/CONTACT #: [phone] I have reviewed and agree with the above assessment. Pt admitted to MICU from OSH for ongoing L RP bleeding. Pt's Hgb down to 5.5, CTA showing active extravasation, plan on IR for further management if needed. Possible IHD vs CVVHD. Needs TBD. SW will continue to follow. SIGNATURE: Lisseth Coto MSW, MEDICAL INSTRUCTOR PATIENT NAME: Paloma Cannon DATE: October 26, 2017 TIME: 9:40 AM PAGER/CONTACT #: [phone] Previous Version ROXY Goodson, Tech 10/26/2017 10:55 [...] Her INR was 1.0 on admission to [place]. She had severe left flank/abdominal pain, and [...] angiogram and dialysis begun. Patient transferred to [facility] last night. She's been on low-dose prednisone; [...] d-dimer for DIC[place]. [phone] Fredi Dykes MD 10/26/2017 11:07 AM Signed [...] 24 cm left retroperitoneal Hematoma, transferred to [place] for angiography by Dr. Gr which showed L3 lumbar arterial extravasation, embolized on 10/23/2017. The patient was transferred to [facility] for further management and pheresis, but has [...] October 26, 2017 TIME: 10:58 AM PAGER: [phone] Mari Nova PA-C 10/26/2017 12:15 PM Written [...] and Moving all extremities Infusion Medications HYDROmorphone MANAGER BILLING 0.5 mg/mL NaCl 0.9% Last Rate: 30 [...] 24 hours? Yes Edel Guillen, QUINTEN, LD, [facility] 10/26/2017 12:32 PM Signed NUTRITION THERAPY INITIAL [...] no intervention recommended. ?? She presented to [place] ED on 10/23 due to severe stabbing left-sided abdominal pain radiating to left arm/leg. She had a CT abdomen that showed extensive left retroperitoneal hemorrhage with mass effect to the left kidney, and less extensive hemorrhage along the surface of the spleen and along the mesentery. She was transferred to [place] as ICU at [facility] was full. Present Diet Order: NPO Nutritional [...] (257 lb 15 oz) 10/18/2016 114.306 kg [place] body weight 52.3 kg Estimated kilocalorie needs: 2848-0511 kilocalories determined by 25-30 kcal/kg ideal body weight Estimated protein needs: 78-105 grams determined by 1.5-2.0 g/kg [place] weight Estimated fluid needs: per MD NUTRITION [...] 800 mg ORAL TID w MEALS HYDROmorphone MANAGER BILLING 0.5 mg/mL in NaCl 0.9% 100 mL [...] 3 units SIGNATURE: Edel Guillen, RD, LD, CNSC PATIENT NAME: Paloma Cannon DATE: October 26, 2017 TIME: 12:23 PM PAGER: [phone] Mari Nova PA-C 10/26/2017 12:25 PM Written [...] Premedicate for transfusions - Hold anticoagulation - MANAGER BILLING pump with dilaudid for pain control of [...] and Moving all extremities Infusion Medications HYDROmorphone MANAGER BILLING 0.5 mg/mL NaCl 0.9% Last Rate: 30 [...] Peripheral neuropathy - post-thrombotic syndrome Transferred from [place] for ongoing L RP bleeding. Major Interval Events: New Events (last 24hrs): 10/26: Transferred from [place]. Hgb down to 5.5. CTA showing active [...] IR emobolization of left L3 artery at [place]. Transferred 10/26 for further management. Current Assessment AND Plan Assessment: secondary to anticoagulation PLAN: - IR consulted - CTA abdomen/pelvis - IR embolization - Monitor CBC and transfuse as needed - Premedicate for transfusions - Hold anticoagulation - MANAGER BILLING pump with dilaudid for pain control of L sided pain related to RP bleed Severe CAPRICE (acute kidney injury) (HCC) 10/08/2015 - Present Overview CAPRICE on CKD III, 2/2 contrast, now requiring dialysis First HD at [place] on 10/25 with tunneled dialysis catheter placement [...] Patient, ICU Team, RN and Consultants: [facility], hematology, nephrology SIGNATURE: Mari Nova PA-C PATIENT NAME: Paloma Cannon DATE: October 26, 2017 TIME: 12:39 PM PAGER/CONTACT #: [phone] Progress Notes ( MICU): Nelia Bernal RN 10/23/2017 6:53 AM Addendum Nursing Progress Note Patient Name: Paloma Cannon [facility]: 0510: Pt arrived to ICU bed 36. Pt received total chlorhexidine bath and was connected to all monitors 0513: MD Sylvester paged to make him aware of pt arrival to MICU. 0520: Pt assessed. See flowsheet. 0528: Uzniga placed via verbal order from MD Sylvester. 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 She was discharged yesterday after she stabilized and reached her home around 6 PM. She started having severe left sided abdominal pain under her breast radiating up to thigh region after that and went back to [facility] ED. She had a CT abdomen done [...] bilateral iliac stents and IVC endograft, on shelter AC with warfarin, plasmapharesis q2 weeks, prednisone [...] 0 COMPOUNDED PRESCRIPTION Outpatient physical therapyPlease call [phone] to make an appointment Disp: 1 Each [...] Signs Temp: 36.5 ?C (97.7 ?F) (10/23/17 05) Pulse: 100 (10/23/1700) Resp: 17 (10/23/17599) BP: 126/76 (10/23/17599) MAP Non Invasive (Mean Arterial Pressure): 91 (10/23/17599) SpO2: 99 % (10/23/17599) Pain Score: 10/10 [...] 2017 6:18 AM Previous Version RT Richardson, Tech 10/23/2017 6:13 AM Signed Radiology Service [...] Kassandra Rios MD 10/23/2017 7:18 AM Signed [facility] STAFF PHYSICIAN NOTE OF PERSONAL INVOLVEMENT IN [...] on Prednisone, Cyclophosphamide, and recently admitted to [facility] 10/13- requiring mechanical ventilation and PLEX), DVT/PE?needing extensive percutaneous thrombectomy of her IVC and lower extremity veins followed by placement of B/L?iliac venous?stents and an?endograft into her IVC, on long-term AC, HIT, CKD III, HTN, HFrEF, peripheral neuropathy, post phlebitic syndrome, who was transferred this morning from [facility] for retroperitoneal bleeding. Ms. Cannon was recently discharged from [facility] where she was admitted 10/13- for DAH requiring Mechanical ventilation with paralysis, IV steroids, and PLEX, this was her 6th episode of respiratory failure due to the same. She was discharged on Fondoparinux. She stated that just after arriving home, she felt an acute sharp pain starting below my left breast going all the way down and to my back, very severe /10, associated with nausea. She denies trauma or carrying a heavy object. No fever or chills. No prior similar episodes. Ms. Cannon presented to [place] ED where she was found to have a retroperitoneal bleeding on CT and Hb dropped to 5.7 g/dL. IMPRESSION: I am seeing Ms. 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 SIGNATURE: Kassandra Rios MD [facility] PAGER:[phone] DATE of SERVICE: October 23, 2017 Lynne Sprague RN, RN 10/23/2017 7:29 AM Signed Nursing Progress Note Patient Name: Paloma Cannon [facility] Daily Note: 0729 Text paged Deepa WATERS R: Bed 36: Hgb=4.8. Thanks. Please adviseShane Batista This note was completed by: JEFF Rizvi MD 10/23/2017 2:43 PM Signed [facility] PHYSICIAN NOTE OF PERSONAL INVOLVEMENT IN [...] stents on AC, HIT, recent admission to [facility] (10/13 - 10/22) for acute hypoxic resp failure due to DAH requiring PLEX, who presented to OSH c/o left-sided abdominal pain, work-up c/w acute blood loss anemia from retroperitoneal bleeding, transferred to [facility] for further mgmt. PLAN: Acute hypoxic [...] minutes. SIGNATURE: Sapna Wyatt MD [facility] PAGER:[phone] DATE of SERVICE: 10/23/17 TIME of SERVICE: [...] October 23, 2017 TIME: 9:51 AM PAGER: [phone] Sunshine Gr MD 10/23/2017 12:01 PM Signed BRIEF OPERATIVE / PROCEDURE NOTE SURGERY/PROCEDURE DATE: 10/23/17 INCISION/PROCEDURE START TIME: INCISION CLOSE/PROCEDURE END TIME: SURGEON(S)/PROCEDURALIST(S) AND EMPLOYEE RELATIONS ADMINISTRATOR(S): Maximino Gr - Primary SURGERY/PROCEDURE(S): L RP angiogram and L3 embolization ANESTHESIA: Moderate sedation FINDINGS: Bleeding from multiple foci of from left L3, embolized with gelfoam and coils. Large WOOD MECHANIST->CFV fistula ESTIMATED BLOOD LOSS: Minimal SPECIMENS: None COMPLICATIONS: None PRE-OP/PRE-PROCEDURE DIAGNOSIS: Left RP bleed POST-OP/POST-PROCEDURE DIAGNOSIS: Left L3 hemorrhage, L WOOD MECHANIST-CFV AVF SIGNATURE: Sunshine Gr MD PATIENT NAME: [...] 23, 2017 TIME: 12:35 PM PAGER/CONTACT #: [phone] Ghazala Bailey 10/23/2017 2:22 PM Signed MEDICATION HISTORY AND MEDICATION RECONCILIATION Patient Name:Karyna Cannon : 1990 Source of history:[facility] records: discharge note on 10/22/17 Medication Nonadherence Identified: No barriers noted The above information represents the best possible medication history: Yes Reconciliation completed? Yes All STAFF INTERNIST OFFICE BASED ONLY medications addressed by LIP -Amlodipine; zyrtec; fondaparinux [...] See Comments Elevated cardiac enzymes Preferred Pharmacy: [facility] pharmacy/[facility] pharmacy Current STAFF INTERNIST OFFICE BASED ONLY Medications: Prior to Admission medications as of 10/23/17 0602 Medication Sig Last Dose Taking predniSONE (DELTASONE) 20 mg tablet Take 4 tablets by mouth once daily for 8 days. COMPOUNDED PRESCRIPTION Outpatient physical therapy Please call [phone] to make an appointment fondaparinux (ARIXTRA) 2.5 [...] Prior to Discharge: To Be Determined MEDICAL: Patient/Recruiting Operations Consultant Stated Goals: To have reduction in symptoms To improve my functional status To return home to life as it was Health Insurance: [facility] Medicare and Medicaid Health Issues Impacting Discharge [...] [place] Has the Patient Been in a Alf Facility in the Past 30 days? No [...] 0 I feel financially burdened by my [id number] expenses for my prescription medication: Disagree completely [...] Unit. She was just discharged home from [facility] yesterday. The patient lives with her and was independent prior to admission. She has home oxygen provided through [employer]. No skilled needs are anticipated but SW remains available if any needs are identified. 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 On Fondaparinux 7.5mg and on Prednisone 80mg prior to discharge. She was to taper prednisone on discharge. She underwent Plasma exchange 10/16 and 10/18 and is scheduled again 10/30. After her journey home yesterday she developed severe left flank pain and her brought her to [facility]. Today she had MULTIPLE FOCI OF [...] 20 mL 20 mL INTRAVENOUS PRN HYDROmorphone MANAGER BILLING 0.5 mg/mL in NaCl 0.9% 100 mL [...] Abs Lymph 1.00 - 4.00 k/uL 1.03 Hughes% % 3.0 Abs Hughes <0.87 k/uL 0.52 Eosin% % 0.0 Abs [...] recommended. I discussed the case with her director equipment at [facility], Dr. Andujar. Sandra Morillo M.D. Lynne Sprague, RN, RN 10/23/2017 7:45 PM Addendum Nursing Progress Note Patient Name: Paloma Cannon [facility] Daily Note: 0720 Shift report received from off-going RN. Aletha Maradiaga, lab personnel notified this RN of HgB=10/15. 0729 Text paged Deepa WATERS of most recent HgB as noted above. 0742 COATING MIXER TENDER, Tanika Gooden to contact blood bank. 0744 Per Blood bank, will take 2-4 hours until PRBCs available r/t antibodies. Notified Deepa WATERS AND Dr. Welch (Fellow from [facility]). ELLIOTT calls blood bank after discussion w/ [...] to transfusion w/ emergent blood. In process. 0810 Clarified pre-medication orders w/ Deepa WATERS as [...] blood bank form completed by Dr. Wyatt. LEAD SUPPLY WORKER also at bedside. POC includes IR this AM. 0825 Have spoken w/ Kevin Torres, Pharmacist re dilaudid MANAGER BILLING. Pending arrival of infusion to MICU. 0835 Per ELLIOTT, ok for ice chips. W/o s/s of aspiration. Refuses oral care/brushing of teeth at this time. 0845 Have requested [facility] to request 2nd unit of PRBCs. Procedure for each unit is to run @ 125-150ml/h x15 min then if no obvious reaction, 999ml/h. Tolerating 1st 15 min and 999ml/h rate thereafter. Pending arrival of unit #2. 0850 Bag of Dialudid Delivered to bedside. Have discussed w/ COATING MIXER TENDER POC which includes use of Dilaudid IVP until post IR procedure. 0856 Have spoken w/ LEAD SUPPLY WORKER of need for additional IV access as pt has single lumen Franchesca catheter (as well as apheresis cath). Discussed possible placement in IR. Per LEAD SUPPLY WORKER, after consulting w/ Dr. Wyatt, no additional central line placement to be placed - iff need be, will use apheresis catheter. Notified LEAD SUPPLY WORKER of RR min noted bbm - encouraged pt to beathe- concern for additional 0.5mg dilaudid order as pt somnolent after 1mg dilaudid and 50mg bendadryl. Continue to monitor. Hold 0.5mg for now and reassess post procedure. 0905 Per LEAD SUPPLY WORKER, POC includes RN to attempt PIV - [...] progress. As well, will reassess need for MANAGER BILLING v. IVP of dilaudid post procedure. 09 [...] PRBCs should also be given emergently. 0956 [facility] notifies RN of need for emergent transfusion as noted above - [facility] to notify Blood Bank. 1028 3rd unit of PRBCs up at this time. Verified and vitals per protocol. Have called automobile upholstererEllen to inquire if imaging disc from [facility] present in pt's chart or belongings per request of Dr. Gr. 1039 No disc available but CT results/report brought to [facility] by automobile upholsterer for Dr. Gr's review. 1100 Notified COATING MIXER TENDER to request 4th unit of PRBCs. IR procedure continues in progress. 1123 Have spoken w/ Kevin Trores, Pharmacist re indwelling citrate per pt. Reviewed pt's allergy to Heprain (RONNIE) - Pharmacist to discuss w/ colleagues and f/up w/ RN. 1134 Kevin Torres notifies this RN of availability of Na Citrate 3ml syringes used for indewlling catheters. Order #[id number]. Will have LEAD SUPPLY WORKER order so that upon arrival in MICU, can indwell apheresis cath ports. 1145 Have notified deepa WATERS of order # and amount required (total 3.2ml) of Na Citrate as noted above. As well, updated to IR procedure as known by this RN. Per Dr. Gr, pt may be required for transfer to [facility] for complex vascular surgery as Dr. Gooden is unable to stent vessel in L groin area. 1150 Charge contacted this RN in IR for updates. Procedure in progress. 1202 Post procedure instructions per Dr. Gr include HOB < 10 and R leg to be extended until 1400. 1204 RN notified that pt had received 2mg versed and 50mcg fentanyl. 1222 TIAGO Mary has placed 22 PIV iRAC under [employer]. Patent w/ blood return and flush. 1235 Returned to MICU post procedure. Pt drowsy. 1240 Have spoken W/ Kevin Torres re Na Citrate post salesperson terrazzo tilesKatharine (pt has dialysis cath) and pt's allergy to heparim. 1242 and Father at bedside.Updated to pt's condition and answered questions as able. In particular, 4 units of PRBCs given, Coils placed in IR, to receive dilaudid MANAGER BILLING. Per pt, man-made fistulas in groin for increased blood flow to LEs. Pe rHusband, pt is to have next apheresis 10/30 and pt's PLTs are kept @ < 100. Will notify Dr. Wyatt as will need to coordinate transfer to [facility] for such. 1255 Dr. Morillo updated to pt's condition and in particular, pt has been to IR w/ coils, received 4 units for HgB 4.8 and due for apheresis 10/30. 1305 0.5mg dilaudid to be given for continued c/o pain. Will begin MANAGER BILLING Dialudid pump fernando. Dr. Morillo parted bedside. Awaiting arrival of MANAGER BILLING pump to bedside. 1307 Blood sample drawn from Franchesca Cath, labeled, verified and sent to lab via tube system (CBC). 1313 1.6ml Na Citrate placed in each apheresis port. Pt on 3L NC. Continue to monitor. [id number] R groin noted to be bleeding - moderate amt. Using ABD, pressure applied to R groin for all of this time. Bleeding stopped. Continue to monitor. 1410 R groin assessed - no further bleeding. W/o evidence of hematoma. Will continue to monitor. 1415 Reports some relief w/ MANAGER BILLING, however, SpO2 low 90s thus increased FiO2 to 4L/min. 1428 LEAD SUPPLY WORKER notified of most recent HANDH 02/08/24.2 and pt request for diet. Tolerating sips and chips. Deepa WATERS to order reg diet. 1338 MANAGER BILLING Dilaudid began at this time. Instructed in use of demand button and dose and frequency. 1608 Dr. Wyatt at bedside. Thereafter, updated to pt's condition and answered questions. In particular, most recent HANDH and pt's every 4 hour CBC, and effectiveness of dilaudid MANAGER BILLING per pt report. 1616 Text paged Deepa WATERS @ [phone]: Bed 36: Reports itching, especially on chest AND back. Requesting benedryl. Please advise. Thanks. Lynne [phone] SR from Vascualr surgery at bedside. 1734 Blood sample drawn from Franchesca, verififed, labeled and sent to lab via tube system. 1745 Pharmcy notified of need for prn hydrocortisone topical cream 1%. 1805 Vascular surgery resident notified this RN of POC to include b/l LE Duplex. 1814 C/o sweating. Temp 36.3. 3 ice packs placed: b/l axialla and posterior neck. 1821 MANAGER BILLING pump use as follows: 15ml total, Total given 7.5mg, 10/20 demand bolus' AND pt bolus 1.2mg. 1824 Text paged Deepa WATERS R: Bed 36: Low UOP. Past 2 hours were 10 AND 15ml. Please advise. Thanks. 183 Text paged Deepa WATERS: Bed 36: We just sent the CBC @ 1730. Do you want lab to stick and then a draw from the Franchesca cath? Please advise. Thanks. 183 Text paged LEAD SUPPLY WORKER: Bed 36: For blood cultures. 184 Deepa WATERS responded to above text: POC now includes: next CBC AND BMP @ 1999, 1 set of blood cxs to be drawn by lab and the other by RN from [facility], [facility] to order zofran as notified pt had small emesis post ingestion of items from dinner tray. Blood cx from line to also be drawn @ 1999 to conserve waste blood. 1850 Urine sample obtained from port for cx, labeled verified and sent to lab via tube system. 1924 Shift report given to on-coming RN. This note was completed by: Lynne Sprague RN Previous Version Radha Brown APRN.ELLIOTT 10/23/2017 7:46 PM Signed MICU PROGRESS NOTE WITH COORD CARE SERVICE DATE: 10/23/2017 SERVICE TIME: 45 Admission Date: 10/23/2017 Day #: 1 in the MICU. 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 She [...] mesentery. She was transferred to MICU as [facility] had no beds. On arrival to MICU [...] artery, -> embolized. 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 fistula created in 2013 no need for intervention will arrange for US eval for thrombus. Assessment/Plan Neuro: Peripheral neuropathy left flank pain Plan: -pt drowsy hold Gabapentin -dilaudid MANAGER BILLING Cardiovascular: HFpEF: LVEF ~ 50% BP low [...] BALANCE Intake/Output Summary (Last 24 hours) at 10/23/171942 Last data filed at 10/23/17 1800 Gross [...] 20 mL 20 mL INTRAVENOUS PRN HYDROmorphone MANAGER BILLING 0.5 mg/mL in NaCl 0.9% 100 mL [...] cream 1% TOPICAL BID PRN INFUSIONS HYDROmorphone MANAGER BILLING 0.5 mg/mL Lines, Drains, and Airways Line [...] Amylase, AND Lipase Recent Labs 10/23/17 0630 10/22/172 10/21/17 0356 TPROT 4.3* 5.1* 5.9* ALB [...] 23, 2017 TIME: 7:43 PM PAGER/CONTACT #: [phone] Shaheen Crandall MD 10/24/2017 10:33 PM Unsigned Hairspring Inspector [facility] - Consultation PALOMA CANNON : 1990 AGE: 27 SEX: F ACCTNUM: [id number] HOSP SVC: INT LOCATION: [facility] ATTENDING PHYSICIAN: SAPNA WYATT DATE OF CONSULTATION: [...] acute kidney injury. She was at the [facility] from October 13 through October 22 for alveolar hemorrhage. She got home around 6 p.m. yesterday. She started having severe left- sided abdominal pain and went back to ER. She had a CT of the abdomen showing extensive retroperitoneal hemorrhage with mass effect on the left kidney and thus she was transferred here. There were no beds at the [facility]. She had an angiogram performed, which showed bleeding from her left L3 artery and this was embolized. She required 200 cc of IV contrast. There is also an incidentally found WOOD MECHANIST disease SV fistula. Her urine output has [...] 5.9. She is currently on a Dilaudid MANAGER BILLING for her pain. She does have multiple [...] questions or concerns. Shaheen Crandall M.D. Nephrology SB:[id number] /[id number] RT Richardson, [employer] 10/24/2017 5:27 AM Signed Radiology Service Progress [...] Adriana Reeves MD, MD 10/25/2017 8:20 AM [facility] [place] [facility]ULAR SURGERY INITIAL CONSULT Service Date: 10/24/2017 [...] on Prednisone, Cyclophosphamide, and recently admitted to [facility] 10/13- requiring mechanical ventilation and PLEX), DVT/PE?needing extensive percutaneous thrombectomy of her IVC and lower extremity veins followed by placement of B/L?iliac venous?stents and an?endograft into her IVC, on long-term AC, HIT, CKD III, HTN, HFrEF, peripheral neuropathy, post phlebitic syndrome, who was transferred from [facility] for retroperitoneal bleeding on 10/23/17. She is now s/p IR embolization of left L3 lumbar artery. Vascular surgery is consulted for WOOD MECHANIST to CFV fistula found during procedure. Per patient she has had these fistula since her multiple surgeries in [place] in 2013. After the surgery, she experiences lower extremity swelling, however she is able to ambulate. Her most recent DVT can was in 10/14/17 in [facility] and was negative for acute DVT. She has been on fondaparinux during her hospitalization(history of HIT) and prior to that has been mainatained on coumadin. Presently, she has no acute lower extremity symptoms except the right groin access site painful. Summary of Operations in [facility]: 10/02/2013 OPERATION PERFORMED: 1. Urgent control of [...] Cannulation of left internal jugular vein with 17-Belizean Bio-Medicus arterial cannula. 3. Cannulation of right internal jugular vein with 26-Belizean GORE DrySeal for the Angiovac suction catheter. [...] 0 COMPOUNDED PRESCRIPTION Outpatient physical therapyPlease call [phone] to make an appointment Disp: 1 Each [...] 20 mL 20 mL INTRAVENOUS PRN HYDROmorphone MANAGER BILLING 0.5 mg/mL in NaCl 0.9% 100 mL INTRAVENOUS CONTINUOUS predniSONE (DELTASONE) tab(s) 80 mg 80 mg ORAL DAILY sulfamethoxazole-trimethoprim 800-160 mg 1 tablet (BACTRIM DS,SEPTRA DS) 1 tablet ORAL - diphenhydrAMINE 25 mg (BENADRYL) 25 mg ORAL [...] Laboratory: Recent Labs 10/24/17 0405 10/24/17 0020 10/23/17 2030 WBC 28.42* 26.37* 23.91* HB 6.7* 6.9* [...] of the left L3 lumbar artery. ?2.4 Belizean microcatheter system was then used to select [...] on Prednisone, Cyclophosphamide, and recently admitted to [facility] 10/13- requiring mechanical ventilation and PLEX), DVT/PE?needing extensive percutaneous thrombectomy of her IVC and lower extremity veins followed by placement of B/L?iliac venous?stents and an?endograft into her IVC, on long-term AC, HIT, CKD III, HTN, HFrEF, peripheral neuropathy, post phlebitic syndrome, who was transferred from [facility] for retroperitoneal bleeding on 10/23/17. She [...] 24, 2017 TIME: 5:57 AM PAGER/CONTACT #: [phone] Previous Version Sapna Wyatt MD 10/24/2017 12:36 PM Signed [facility] STAFF PHYSICIAN NOTE OF PERSONAL INVOLVEMENT IN [...] stents on AC, HIT, recent admission to [facility] (10/13 - 10/22) for acute hypoxic resp failure due to DAH requiring PLEX, who presented to OSH c/o left-sided abdominal pain, work-up c/w acute blood loss anemia from retroperitoneal bleeding, transferred to [facility] for further mgmt. ? PLAN: ? [...] hospitalization until then will need transfer to [facility] [place]. HTN - hold home meds for now. [...] minutes. SIGNATURE: Sapna Wyatt MD [facility] PAGER:[phone] DATE of SERVICE: 10/24/17 TIME of SERVICE: 12:36 PM Saundra Choe RN, RN 10/24/2017 8:08 AM Addendum Nursing Progress Note Patient Name: Paloma Cannon Patient Location: [place] [address] Daily Note: 1929 Report received Complete assessment to follow 1999 Complete assessment done. Pt is awake, alert, oriented x3 Dilaudid MANAGER BILLING controlling pt's pain at this time NSR to BST on arrt technologist. Speeh clear VSS Pt is on O2 at 6 L NC SAO2 mid to upper 90's Respiratory rate will decrease to 6 when the pt is sleeping. Minimal yellow urine noted. Moderate amount of serous drainage from the right groin Site from IR. Taking po fluids without difficulty. 1999 Blood cultures drawn by the guyline operator as ordered 2029 CBC., BMP, Blood cultures and Thrombograph blood work drawn from the Samantha catheter and sent to lab as ordered. 2234 Ese Arias from labs called regarding the Thrombograph panel. Stated that this is a mail out to [facility] and lab would need to be [...] Updated on assessment and events of the assistant shift supervisor. 0735 PRBC's completed at this time. No [...] MD 10/24/2017 10:19 AM Signed Dictation number: [id number] CAPRICE on CKD 3 CAPRICE likely from [...] peripheral neuropathy, post-phlebitic syndrome?who was admitted to [facility] MICU on 10/13?for alveolar hemorrhage. She was [...] mesentery. She was transferred to MICU as [facility] had no beds. On arrival to MICU [...] artery, -> embolized. 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 fistula [...] 20 mL 20 mL INTRAVENOUS PRN HYDROmorphone MANAGER BILLING 0.5 mg/mL in NaCl 0.9% 100 mL [...] (ml) [phone] Net (ml) -[phone] MNT Billing Type: Initial Assess/15 min 5 units SIGNATURE: Micaela Rice RD, LD PATIENT NAME: Paloma Cannon DATE: October 24, 2017 TIME: 12:28 PM PAGER: For further assistance and weekends please page the Group Pager [phone] Chaplain Nova 10/24/2017 3:14 PM Signed SPIRITUAL CARE PROGRESS NOTE SERVICE DATE: 10/24/2017 SERVICE TIME: 1500 Casting Machine Operator Automatic provided spiritual support through reflective listening and reinforcing ways pt uses to comfort and calm her self during anxiety attacks. Casting Machine Operator Automatic shared Psalm 23 and prayed with pt, who became tearful and expressed she had been comforted by the Psalm and the prayer. Pt expressed interest in using lavender for comfort and ironer machine offered to bring some lavender scented inhalers, lotions, etc., to the pt which she readily accepted. Casting Machine Operator Automatic will bring this to pt later this afternoon and continue support. To contact the Spiritual Care Department: Please call [phone]. SIGNATURE: Chaplain Nova PATIENT NAME: Paloma Cannon DATE: October 24, 2017 TIME: 3:10 PM PAGER/CONTACT #: [phone] Dary Mueller RN, RN 10/24/2017 7:47 PM Addendum Nursing Progress Note Patient Name: Paloma Cannon Patient Location: -MICU36/-ICU-36 Daily Note: 0730 report received,pt remains on [...] ashley well.pt attempting to have a BM unsuccessful.RETAIL DISTRICT MANAGER informed and orders placed. 1745 pt up in the ch from [facility]. 1800 pt remains up in the ch. in to see the pt update given.Vss.U/o remains minimal 1929 report to relief nurse. This note was completed by: Dary Mueller RN Previous Version Radha Brown APRN.LEAD SUPPLY WORKER 10/24/2017 7:50 PM Signed MICU PROGRESS NOTE WITH COORD CARE SERVICE DATE: 10/24/2017 SERVICE TIME: 929 Admission Date: 10/23/2017 Day #: 2 in the MICU. 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 She [...] mesentery. She was transferred to MICU as [facility] had no beds. On arrival to MICU [...] artery, -> embolized. 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 fistula [...] repet bmp 9PM Family requests transfer to [facility] . AC on hold in setting acute bleed Assessment/Plan retroperitoneal bleed 10/23. HG 4.8, required 4 units PRBC underwent IR embolization of left lumbar artery serous output from right groin pouch placed HG continues to drift down (expected), required additional 2 units post procedure Neuro: Peripheral neuropathy left flank pain Plan: -add Gabapentin, reduced dose given renal failure -dilaudid MANAGER BILLING -0.2mg q 20 minutes no basal Cardiovascular: [...] daily) plasmapheresis due Monday Prophylactic: - PPI WOOD MECHANIST -CFV fistula, Vascular Surgery consulted -. fistula created in 2013 no need for intervention FULL CODE difficult airway seen and discussed with Dr Wyatt on AM and late afternoon rounds transfer orders in for transfer to [facility] Dr Womack contacting MICU staff to [...] BALANCE Intake/Output Summary (Last 24 hours) at 10/24/171946 Last data filed at 10/24/17 1900 Gross [...] 20 mL 20 mL INTRAVENOUS PRN HYDROmorphone MANAGER BILLING 0.5 mg/mL in NaCl 0.9% 100 mL INTRAVENOUS CONTINUOUS predniSONE (DELTASONE) tab(s) 80 mg 80 mg ORAL DAILY sulfamethoxazole-trimethoprim 800-160 mg 1 tablet (BACTRIM DS,SEPTRA DS) 1 tablet ORAL -WE hydrocortisone topical cream 1% TOPICAL BID PRN INFUSIONS HYDROmorphone MANAGER BILLING 0.5 mg/mL Lines, Drains, and Airways Line [...] Note Patient Name: Paloma Cannon [facility] Daily Note: 1930- Bedside report received from off going RN and care of patient assumed. 1999- Initial assessment completed as documented. Patient up to bedside commode to void. Patient had an XL BM. Patient has Dilaudid MANAGER BILLING pump infusing via bolus at 0.2mg. 2020- Medications administered as ordered, please refer to MAR for full details. 2099- Patient order for blood draws discussed with Dr. Phan. Per LIP labs to drawn after 2199 due to administration of Potassium reducing medications. 2229- Blood drawn and sent to lab as ordered. 2319- Patient lab results received and discussed with [...] 20 mL 20 mL INTRAVENOUS PRN HYDROmorphone MANAGER BILLING 0.5 mg/mL in NaCl 0.9% 100 mL [...] Date 10/25/17 07 - 10/26/17 0659 Shift [id number] 24 Hour Total I N T A [...] Sapna Wyatt MD 10/25/2017 6:30 PM Signed [facility] BY [facility] STAFF PHYSICIAN NOTE OF PERSONAL INVOLVEMENT IN [...] stents on AC, HIT, recent admission to [facility] (10/13 - 10/22) for acute hypoxic resp failure due to DAH requiring PLEX, who presented to OSH c/o left-sided abdominal pain, work-up c/w acute blood loss anemia from retroperitoneal bleeding, transferred to [facility] for further mgmt. ?? PLAN:? ?? [...] due to acute hemorrhage. Awaiting transfer to [facility] as she will need plasmapheresis. ? Patient/Family [...] minutes. SIGNATURE: Sapna Wyatt MD [facility] PAGER:[phone] DATE of SERVICE: 10/25/17 TIME of SERVICE: 9:13 AM ROBBI Dahl 10/25/2017 10:54 AM Signed CARE MANAGEMENT PROGRESS NOTE SERVICE DATE: 10/25/2017 SERVICE TIME: 10:52 AM LOS: 2 days Per huddle. Pt is being transferred to [facility]. Potentially before Monday. CM to follow and support. Pt home with spouse. Likely no skilled needs. SIGNATURE: ROBBI Dahl PATIENT NAME: Paloma Cannon DATE: October 25, 2017 TIME: 10:52 AM PAGER/CONTACT #: [phone] ALLYSON Rosas Tech 10/25/2017 12:50 PM Addendum [...] Care PATIENT NAME: Paloma Cannon PATIENT LOCATION: [place] [address] [address] READINESS TO LEARN COGNITIVE ABILITY: Alert and [...] REFERRAL (RECOMMENDATION): None Electronically Signed By: ALLYSON Rosas, RN, RN 10/25/2017 4:57 PM Addendum Nursing Progress Note Patient Name: Paloma Cannon Patient Location: [place] [address] [address] Daily Note:0800- Report and SBAR with offgoing RN, see flow sheet for details. RETAIL DISTRICT MANAGER updated by offgoing nurse, will review labs etc 0830- Dr Crandall in for rounds, will order HD treatment, informed pt and discussed treatment 0900- Lab sent per order 0920- Soils Analyst in with MICU team for rounds, updated on status. Pt states pain in Left flank is at 40/10, orders placed for oral pain medication and will give clinician dose of dialudid 1000- Dialysis nurse arrived BS to set up for treatment 1220- Pt complaining of severe pain, rates 20/10, is undergoing HD treatment at this time. Notified Brandi RETAIL DISTRICT MANAGER pt is continuously having severe pain, will discuss pain medication orders with orthopedic dentist 1320- HD treatment completed, PRBC's sent for, will administer solu-cortef and benedryl 1345- heavy assist OOB to recliner, pt weak but able to stand and pivot. 1425- PRBC's started, pt remains in recliner, states pain is somewhat better. Drinking liquid supplements. Received benedry and solu medrol prior to transfusion This note was completed by: Roxane Campbell RN Previous Version Navi Giang APRN.LEAD SUPPLY WORKER 10/25/2017 4:14 PM Addendum MICU PROGRESS NOTE [...] peripheral neuropathy, post-phlebitic syndrome?who was admitted to [facility] MICU on 10/13 for alveolar hemorrhage. She was discharged yesterday after she stabilized and reached her home around 6 PM. She started having severe left sided abdominal pain under her breast radiating down to thigh region and went back to [facility] ED. She had a CT abdomen at outside hospital. Showed extensive L. retroperitoneal Hemorrhage with mass effect to left kidney. Also less extensive hemorrhage present along the surface of the spleen and along mesentery. Transferred to MICU as [facility] had no beds. On arrival to MICU patient complained of severe excruciating pain in the left abdomen, 10/10 in intensity, sharp in quality radiating from Left breast to thigh region. Pain is constant per patient and only minimally improved with Dilaudid patient received in [facility]. ICU course: HG 4.8, lethargic c/o left flank pain poor relief with IV fentanyl. BP low but acceptable (SBP 100-120) Pt received 2 units emergency blood, IR consulted, underwent urgent L RP angiogram, found to have bleeding from multiple foci of the left L3 artery, -> embolized. 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 fistula created in 2013 no need for intervention will arrange for US eval for thrombus. 10/24 HG drifting down, (expected). required 2 units PRBC today. oliguric CPARICE, UOP 0-5 cc/hr overnight, with rising CR, potassium 6 Nephrology consulted (contrast nephropathy), conservative management, may require HD, holding today. IV hyperkalemia protocol, kayexalate repet bmp 9PM Family requests transfer to [facility] . AC on hold in setting acute bleed 10/25: IV Lasix and Demedex diuretics did not improve u/o. Received 2 units PRBCs overnight with total of 7 units PRBCs since admission to . Is premedicated with diphenhydramine AND solu-cortef prior to each infusion of PRBCs.Nephrology consult to Dr Crandall who ordered HD through Apheresis port. Having problems with pain control. Has Dilaudid MANAGER BILLING. Added scheduled Percocet 1 q6h. Will continue [...] Gabapentin, reduced dose given renal failure -dilaudid MANAGER BILLING -0.2mg q 20 minutes no basal -percocet [...] 2014 by BROWN. discharged 10/22 on fondaparinux currently on hold Plan: Consulted hematology, appreciate recs --plasmapheresis q 2 weeks and prednisone 80 mg daily; a prednisone taper by 20 mg every four days (with maintenance of prednisone 5 mg daily) plasmapheresis due Monday will transfer to [facility] by Monday 10/30 Prophylactic: - PPI -a/c held, scd's WOOD MECHANIST -CFV fistula, Vascular Surgery consulted -. fistula created in 2013 no need for intervention FULL CODE difficult airway seen and discussed with Dr Wyatt On transfer to [facility] to [facility] Dr Womack contacting MICU staff to discuss transfer No [facility] bed avail. today 10/25. OBJECTIVE: VITAL SIGNS [...] ORAL q 6 H HYDROmorphone 0.5 mg/mL MANAGER BILLING CLINICIAN DOSE 0.4 mg 0.4 mg INTRAVENOUS [...] 20 mL 20 mL INTRAVENOUS PRN HYDROmorphone MANAGER BILLING 0.5 mg/mL in NaCl 0.9% 100 mL INTRAVENOUS CONTINUOUS predniSONE (DELTASONE) tab(s) 80 mg 80 mg ORAL DAILY sulfamethoxazole-trimethoprim 800-160 mg 1 tablet (BACTRIM DS,SEPTRA DS) 1 tablet ORAL -WE hydrocortisone topical cream 1% TOPICAL BID PRN INFUSIONS HYDROmorphone MANAGER BILLING 0.5 mg/mL Lines, Drains, and Airways Line [...] 25, 2017 TIME: 3:47 PM PAGER/CONTACT #: [phone] Previous Version Kenisha Amaya, RN, RN 10/25/2017 10:49 PM Addendum Nursing Progress Note Patient Name: Paloma Cannon [facility]: Report received from stefania HE 1999: Assessment complete pt is AANDO x3 and following commands, complaints of flank pain 9/10, encouraged use of MANAGER BILLING. Sinus rhythm on the monitor. SpO2 is 100% on 6L NC, will titrate down as able. For complete assessment see flow sheet. 2144: Pt received bed at [facility] bed 6. Critical Care transport ETA [...] completed by: Kenisha Amaya RN Previous Version CARITO FERRARI PHARMACIST 10/26/2017 11:43 AM Signed DISCHARGE MEDICATION REVIEW [...] PHARMACIST October 26, 2017 11:43 AM Pager: [phone] 10/26/2017 11:43 AM Medication List START taking [...] PROTONIX 40 mg tablet Generic drug: pantoprazole senna 8.6 mg Tab Commonly known as: [...] doctor about these medications HYDROmorphone 0.5 mg/mL MANAGER BILLING CLINICIAN DOSE 0.5 mg/mL Inject 0.8 mL intravenously one time only for 1 dose. Ask about: Should I take this medication? Where to Get Your Medications Information about where to get these medications is not yet available ! Ask your nurse or doctor about these medications - diphenhydrAMINE 50 mg capsule - gabapentin 100 mg capsule - HYDROmorphone 0.5 mg/mL MANAGER BILLING CLINICIAN DOSE 0.5 mg/mL CONSULT Observed: 10/24/2017 Status: COMPLETED Source: [place] 12:00 AM CLINIC OTHER CAMPUS REPOSITORY HNO ID: [id number] Author: Shaheen Crandall Service: Hypertension AND Nephrology Author Type: Physician Type: Consults Filed: 11/16/2017 5:35 PM Note Text: [facility] - Consultation PALOMA CANNON : 1990 AGE: 27 SEX: F ACCTNUM: [id number] HOSP SVC: [facility] LOCATION: [facility] ATTENDING PHYSICIAN: SAPNA WYATT DATE OF CONSULTATION: [...] acute kidney injury. She was at the [facility] from October 13 through October 22 for alveolar hemorrhage. She got home around 6 p.m. yesterday. She started having severe left- sided abdominal pain and went back to ER. She had a CT of the abdomen showing extensive retroperitoneal hemorrhage with mass effect on the left kidney and thus she was transferred here. There were no beds at the [facility]. She had an angiogram performed, which showed bleeding from her left L3 artery and this was embolized. She required 200 cc of IV contrast. There is also an incidentally found WOOD MECHANIST disease SV fistula. Her urine output has [...] 5.9. She is currently on a Dilaudid MANAGER BILLING for her pain. She does have multiple [...] questions or concerns. Shaheen Crandall M.D. Nephrology SB:[id number] /[id number] CBC Collected: 10/23/2017 Status: F Source: [place] 8:30 PM CLINIC OTHER CAMPUS REPOSITORY TYPE [...] 0.12 Performed By: #### CBC, BMP #### [place] [id number] [place] [address] BASIC METABOLIC PANL Collected: 10/23/2017 Status: F Source: [place] 8:30 PM [facility] OTHER CAMPUS REPOSITORY TYPE CODE TESTS RESULT OUT OF REFERENCE UNITS RANGE LAB GLU 65-100 mg/dL Glucose High 172 LAB BUN 8-25 mg/dL BUN High 66 LAB CRET 0.70-1.40 mg/dL High Creatinine 1.86 LAB NA 132-148 mmol/L Sodium 132 LAB K 3.7-5.1 mmol/L High Alert Potassium 6.2 Result Comment: Called to and read back by: George Zhang [facility] 10/23/17 23:03 S.[place] LAB CL 98-110 mmol/L Low Chloride 90 LAB CO2 23-32 mmol/L CO2 26 LAB AGAP 9-18 mmol/L Anion Gap 16 LAB CA 8.5-10.5 mg/dL Low Calcium, Total 7.8 LAB GFRAA >60 Low eGFR- Amer. 39 LAB GFRNAA >60 . Low eGFR-All Other Races 32 Performed By: #### CBC, BMP #### [facility] [address] [place] [address] Observed: 10/23/2017 Status: F Source: [place] BLOOD CULTURE 8:30 PM [facility] REPOSITORY Culture Result - No growth 5 days Performed By: #### BLCUL #### [facility] [address] [place], [place] [address] PROGRESS Observed: 10/23/2017 Status: COMPLETED Source: [place] 7:43 PM [facility] REPOSITORY HNO ID: [id number] Author: Radha Brown Service: Critical Care Author [...] peripheral neuropathy, post-phlebitic syndrome?who was admitted to [facility] MICU on 10/13 for alveolar hemorrhage. She [...] in the mesentery. [facility]. On arrival to MICU [...] artery, -> embolized. 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 fistula created in 2013 no need for intervention will arrange for US eval for thrombus. Assessment/Plan Neuro: Peripheral neuropathy left flank pain Plan: -pt drowsy hold Gabapentin -dilaudid MANAGER BILLING Cardiovascular: HFpEF: LVEF ~ 50% BP low [...] bilateral iliac stents and IVC endograft, on shelter AC with warfarin, plasmapharesis q2 weeks, prednisone [...] 20 mL 20 mL INTRAVENOUS PRN HYDROmorphone MANAGER BILLING 0.5 mg/mL in NaCl 0.9% 100 mL [...] cream 1% TOPICAL BID PRN INFUSIONS HYDROmorphone MANAGER BILLING 0.5 mg/mL Lines, Drains, and Airways Line [...] Care Time 35 minutes. SIGNATURE: Radha Brown APRN.LEAD SUPPLY WORKER PATIENT NAME: Paloma Cannon DATE: October 23, 2017 TIME: 7:43 PM PAGER/CONTACT #: [phone] Observed: 10/23/2017 Status: F Source: [place] BLOOD CULTURE 7:38 PM CLINIC OTHER CAMPUS REPOSITORY Sp. Request/Comment: - The blood culture bottles are underfilled. Adding volume lower or higher than the 8 to 10 mL per bottle, which is the manufacturers recommended volume, may adversely affect the re covery and/or detection of organisms. 5.9 CC Culture Result - No growth 5 days Performed By: #### BLCUL #### [place] [address] Observed: 10/23/2017 Status: F Source: [place] URINE CULTURE 6:50 PM [facility] OTHER [place] REPOSITORY Sp. Request/Comment: - Specimen received in preservative Culture Result - <10,000 CFU/ml Gram negative bacilli --> ABNORMAL ALERT Insignificant colony count. No further workup. --> ABNORMAL ALERT Performed By: #### URCUL #### [place] [id number] [place] [address] CBC Collected: 10/23/2017 Status: F Source: [place] 5:30 PM [facility] OTHER [place] REPOSITORY TYPE CODE TESTS RESULT OUT OF [...] nRBC 0.06 Performed By: #### CBC #### [place] [address] #### PLATF4 #### [place] [address] ANTI PLT FACTOR 4 Collected: 10/23/2017 Status: F Source: [place] AB 5:30 PM [facility] OTHER CAMPUS REPOSITORY TYPE CODE TESTS RESULT [...] Review Indicated Performed By: #### CBC #### [facility] [address] [place] [address] #### PLATF4 #### [facility] [address] [place] [address] NURSING PROG Observed: 10/23/2017 Status: COMPLETED Source: [place] 4:16 PM [facility] OTHER [place] REPOSITORY HNO ID: [id number] Author: Lynne (Rn) JEFF Sprague Service: Nursing Author Type: Registered Nurse Type: Nursing Progress Note Filed: 10/23/2017 7:45 PM Note Text: Nursing Progress Note Patient Name: Paolma Cannon Patient Location: [place] [address] [address] Daily Note: 07 Shift report received from off-going RN. 0726 Gemma Maradiaga, lab personnel notified this RN of HgB=10/15. 0729 Text paged Deepa WATERS of most recent HgB as noted above. 0742 Tanika NEWMAN to contact blood bank. 0744 Per Blood bank, will take 2-4 hours until PRBCs available r/t antibodies. Notified Deepa WATERS AND Dr. Welch (Fellow from [facility]). ELLIOTT calls blood bank after discussion w/ [...] to transfusion w/ emergent blood. In process. 0810 Clarified pre-medication orders w/ Deepa WATERS as order is for 50 AND 50. Will order another 50mg dose of solu-medrol. Has been given 100mg w/ verbal order from LEAD SUPPLY WORKER. Continue to monitor. 0812 Discussed LSO w/ [...] blood bank form completed by Dr. Wyatt. LEAD SUPPLY WORKER also at bedside. POC includes IR this AM. 0825 Have spoken w/ Kevin Torres, Pharmacist re dilaudid MANAGER BILLING. Pending arrival of infusion to MICU. 0835 Per LEAD SUPPLY WORKER, ok for ice chips. W/o s/s of aspiration. Refuses oral care/brushing of teeth at this time. 0845 Have requested COATING MIXER TENDER to request 2nd unit of PRBCs. Procedure for each unit is to run @ 125-150ml/h x15 min then if no obvious reaction, 999ml/h. Tolerating 1st 15 min and 999ml/h rate thereafter. Pending arrival of unit #2. 0850 Bag of Dialudid Delivered to bedside. Have discussed w/ COATING MIXER TENDER POC which includes use of Dilaudid IVP until post IR procedure. 0856 Have spoken w/ LEAD SUPPLY WORKER of need for additional IV access as pt has single lumen Franchesca catheter (as well as apheresis cath). Discussed possible placement in IR. Per LEAD SUPPLY WORKER, after consulting w/ Dr. Wyatt, no additional central line placement to be placed - iff need be, will use apheresis catheter. Notified LEAD SUPPLY WORKER of RR min noted bbm - encouraged pt to beathe- concern for additional 0.5mg dilaudid order as pt somnolent after 1mg dilaudid and 50mg bendadryl. Continue to monitor. Hold 0.5mg for now and reassess post procedure. 0905 Per LEAD SUPPLY WORKER, POC includes RN to attempt PIV - no central line to be placed in IR 906 Have provided brief report to Bianca in IR including Dilaudid/Fentanyl/Benadryl/Solu-Medrol and PRBC transfusions for HgB 4.8. POC includes transport personnel on the way. 911 Have updated another IR personnel to same info as that provided to Bianca as noted above. 919 POC includes CBC upon return to MICU post IR procedure. 2nd unit of PRBC in progress. As well, will reassess need for MANAGER BILLING v. IVP of dilaudid post procedure. 922 Parted MICU for IR. 935 10ml blood w/drawn from dual ports of [...] PRBCs should also be given emergently. 0956 [facility] notifies RN of need for emergent transfusion as noted above - [facility] to notify Blood Bank. 1028 3rd unit of PRBCs up at this time. Verified and vitals per protocol. Have called automobile upholstererEllen PATEL to inquire if imaging disc from [facility] present in pt's chart or belongings per request of Dr. Gr. 1039 No disc available but CT results/report brought to [facility] by automobile upholsterer for Dr. Gr's review. 1100 Notified [facility] to request 4th unit of PRBCs. IR procedure continues in progress. 1123 Have spoken w/ Kevin Torres, Pharmacist re indwelling citrate per pt. Reviewed pt's allergy to Heprain (RONNIE) - Pharmacist to discuss w/ colleagues and f/up w/ RN. 1134 Kevin Torres notifies this RN of availability of Na Citrate 3ml syringes used for indewlling catheters. Order #[id number]. Will have LEAD SUPPLY WORKER order so that upon arrival in MICU, can indwell apheresis cath ports. 1145 Have notified deepa WATERS of order # and amount required (total 3.2ml) of Na Citrate as noted above. As well, updated to IR procedure as known by this RN. Per Dr. Gr, pt may be required for transfer to [facility] for complex vascular surgery as Dr. Gooden [...] W/ Kevin Torres re Na Citrate post salesperson terrazzo tiles, Katharine (pt has dialysis cath) and pt's allergy to heparim. 1242 and Father at bedside.Updated to pt's condition and answered questions as able. In particular, 4 units of PRBCs given, Coils placed in IR, to receive dilaudid MANAGER BILLING. Per pt, man-made fistulas in groin for increased blood flow to LEs. Pe rHusband, pt is to have next apheresis 10/30 and pt's PLTs are kept @ < 100. Will notify Dr. Wyatt as will need to coordinate transfer to [facility] for such. 1255 Dr. Morillo updated to pt's condition and in particular, pt has been to IR w/ coils, received 4 units for HgB 4.8 and due for apheresis 10/30. 1305 0.5mg dilaudid to be given for continued c/o pain. Will begin MANAGER BILLING Dialudid pump fernando. Dr. Morillo parted bedside. Awaiting arrival of MANAGER BILLING pump to bedside. 1307 Blood sample drawn from Franchesca Cath, labeled, verified and sent to lab via tube system (CBC). 1313 1.6ml Na Citrate placed in each apheresis port. Pt on 3L NC. Continue to monitor. 7976-3990 R groin noted to be bleeding - moderate amt. Using ABD, pressure applied to R groin for all of this time. Bleeding stopped. Continue to monitor. 1410 R groin assessed - no further bleeding. W/o evidence of hematoma. Will continue to monitor. 1415 Reports some relief w/ MANAGER BILLING, however, SpO2 low 90s thus increased FiO2 to 4L/min. 1428 LEAD SUPPLY WORKER notified of most recent HANDH 02/08/24.2 and pt request for diet. Tolerating sips and chips. Deepa WATERS to order reg diet. 1338 MANAGER BILLING Dilaudid began at this time. Instructed in use of demand button and dose and frequency. 1608 Dr. Wyatt at bedside. Thereafter, updated to pt's condition and answered questions. In particular, most recent HANDH and pt's every 4 hour CBC, and effectiveness of dilaudid MANAGER BILLING per pt report. 1616 Text paged Deepa WATERS @ [phone]: Bed 36: Reports itching, especially on chest AND back. Requesting benedryl. Please advise. Thanks. Lynne [id number] 1715 SR from Vascualr surgery at bedside. 1734 Blood sample drawn from [facility], labeled and sent to lab via tube system. 1745 Pharmcy notified of need for prn hydrocortisone topical cream 1%. 1805 Vascular surgery resident notified this RN of POC to include b/l LE Duplex. 1814 C/o sweating. Temp 36.3. 3 ice packs placed: b/l axialla and posterior neck. 1821 MANAGER BILLING pump use as follows: 15ml total, Total given 7.5mg, / demand bolus' AND pt bolus 1.2mg. 1824 Text paged Deepa WATERS R: Bed 36: Low UOP. Past 2 hours were 10 AND 15ml. Please advise. Thanks. 1835 Text paged Deepa WATERS R: Bed 36: We just sent the CBC @ 1730. Do you want lab to stick and then a draw from the [facility] cath? Please advise. Thanks. 1836 Text paged LEAD SUPPLY WORKER: Bed 36: For blood cultures. 1841 ELLIOTT Deepa Pat responded to above text: POC now includes: next CBC AND BMP @ 1999, 1 set of blood cxs to be drawn by lab and the other by RN from Franchesca Dolan CNP to order zofran as notified pt had small emesis post ingestion of items from dinner tray. Blood cx from line to also be drawn @ 1999 to conserve waste blood. 1850 Urine sample obtained from port for cx, labeled verified and sent to lab via tube system. 1924 Shift report given to on-coming RN. 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 On Fondaparinux 7.5mg and on Prednisone 80mg prior to discharge. She was to taper prednisone on discharge. She underwent Plasma exchange 10/16 and 10/18 and is scheduled again 10/30. After her journey home yesterday she developed severe left flank pain and her brought her to [facility]. Today she had MULTIPLE FOCI OF [...] nephrotoxic agents - DVT (deep venous thrombosis) ([facility]) - Elevated CA-125 11/30/2013 244 - Essential hypertension 10/08/2015 Stable on home medications Plan: -continue to monitor on home meds - 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 Bivalirudin to Warfarin bridging - HIT (heparin-induced thrombocytopenia) ([facility]) - Nontoxic multinodular goiter - Obese [...] 20 mL 20 mL INTRAVENOUS PRN HYDROmorphone MANAGER BILLING 0.5 mg/mL in NaCl 0.9% 100 mL [...] Abs Lymph 1.00 - 4.00 k/uL 1.03 Hughes% % 3.0 Abs Hughes <0.87 k/uL 0.52 Eosin% % 0.0 Abs [...] Main recently and has been discontinued. The DAH is a feature of her APS and she will continue plasmapheresis q 2 weeks and prednisone 80 mg daily; a prednisone taper by 20 mg every four days (with maintenance of prednisone 5 mg daily) is recommended. I discussed the case with her director equipment at [facility], Dr. Andujar. Sandra Morillo M.D. CASE MGT INIT Observed: 10/23/2017 Status: COMPLETED Source: [facility] 3:01 PM CLINIC OTHER CAMPUS REPOSITORY HNO ID: [id number] Author: Tarah Johnson (Sw) Service: Care Management Author Type: Painting Department Supervisor Type: Care Mgt Initial Assessment Filed: 10/23/2017 3:33 PM Note Text: CARE MANAGEMENT: ASSESSMENT AND DISCHARGE PLAN SERVICE DATE: 10/23/2017 SERVICE TIME: 3:01 PM PRIMARY CARE PHYSICIAN: PEYTON ROGERS MD ADMISSION STATUS: Inpatient Needs Prior to Discharge: To Be Determined MEDICAL: Patient/Recruiting Operations Consultant Stated Goals: To have reduction in symptoms To improve my functional status To return home to life as it was Health Insurance: [facility] Medicare and Medicaid Health Issues Impacting Discharge [...] [place] Has the Patient Been in a Alf Facility in the Past 30 days? No [...] 0 I feel financially burdened by my [id number] expenses for my prescription medication: Disagree completely [...] Unit. She was just discharged home from [facility] yesterday. The patient lives with her and was independent prior to admission. She has home oxygen provided through [facility]. No skilled needs are anticipated but SW remains available if any needs are identified. SIGNATURE: ROBBI Rollins PATIENT NAME: Paloma Cannon DATE: October 23, 2017 TIME: 3:01 PM PAGER/CONTACT #: [phone] PLAN OF CARE Observed: 10/23/2017 Status: COMPLETED Source: [place] 2:20 PM [facility] OTHER CAMPUS REPOSITORY O ID: [id number] Author: Vlad Soto (Pharmacist) Service: Pharmacy Author Type: Pharmacist Type: Plan of Care Filed: 10/23/2017 2:22 PM Note Text: MEDICATION HISTORY AND MEDICATION RECONCILIATION Patient Name:Karyna Cannon : 1990 Source of history:[facility] records: discharge note on 10/22/17 Medication Nonadherence Identified: No barriers noted The above information represents the best possible medication history: Yes Reconciliation completed? Yes All STAFF INTERNIST OFFICE BASED ONLY medications addressed by LIP -Amlodipine; zyrtec; fondaparinux [...] See Comments Elevated cardiac enzymes Preferred Pharmacy: [facility] pharmacy/[facility] pharmacy Current STAFF INTERNIST OFFICE BASED ONLY Medications: Prior to Admission medications as of 10/23/17 0602 Medication Sig Last Dose Taking predniSONE (DELTASONE) 20 mg tablet Take 4 tablets by mouth once daily for 8 days. COMPOUNDED PRESCRIPTION Outpatient physical therapy Please call [phone] to make an appointment fondaparinux (ARIXTRA) 2.5 [...] PM CBC Collected: 10/23/2017 Status: F Source: [place] 12:57 PM [facility] REPOSITORY TYPE CODE TESTS RESULT [...] MPV 10.4 Performed By: #### CBC #### [place] [address] NURSING PROG Observed: 10/23/2017 Status: COMPLETED Source: [place] 12:35 PM [facility] REPOSITORY HNO ID: [id number] Author: Mary Burton (Rn) JEFF Marin Service: [...] 23, 2017 TIME: 12:35 PM PAGER/CONTACT #: [phone] IR ANGIOGRAPHY SPINAL Observed: 10/23/2017 Status: F Source: [facility] 12:00 PM [facility] OTHER CAMPUS REPOSITORY * * *Final Report* [...] Kerma: 4295.0 mGy Dose Area Product (DAP): 603735.0 mGy*cm2 Fluoro Time: 20:00 min:sec Radiation dose [...] guidance. Access was exchanged for a 5 Belizean sheath. 5 Belizean pigtail catheter was placed in the cephalad abdominal aorta, aortogram was performed. Next, combination 5 [place]an Omni Flush catheter straight Bentson wire was used to traverse the aortic bifurcation. Access was exchanged for a 6 Belizean Bental sheath. Left common iliac, external iliac, and left common femoral artery angiograms were performed. Access was then exchanged for a 5 Belizean C2 Cobra catheter over a Bentson wire. [...] of the left L3 lumbar artery. 2.4 Belizean microcatheter system was then used to select [...] Specimens: 0: ATTENDING RADIOLOGIST: Maximino Gr M.D. EMPLOYEE RELATIONS ADMINISTRATOR: None The procedure was performed by the: attending radiologist, without an cement tester assistant. The attending radiologist performed the following procedural activities: Entire procedure. IMPRESSION: MULTIPLE FOCI OF ACTIVE EXTRAVASATION FROM BRANCHES OF THE LEFT L3 LUMBAR ARTERY. SUCCESSFUL GELFOAM/COIL EMBOLIZATION OF THE MIDPORTION OF THIS ARTERY. INCIDENTALLY DISCOVERED DISTAL LEFT COMMON FEMORAL ARTERY TO COMMON FEMORAL VEIN ARTERIOVENOUS FISTULA. GIVEN ITS LOCATION ACROSS THE JOINT, NOT AMENABLE TO ENDOVASCULAR STENTING. RECOMMEND SURGICAL EVALUATION. Pie Topper: MURTAZA Transcribe Date/Time: Oct 23 2017 2:19P Dictated by : SUNSHINE GR MD This examination was interpreted and the report reviewed and electronically signed by: SUNSHINE GR MD on Oct 23 2017 2:35PM EST IR ANGIOGRAPHY SPINAL Observed: 10/23/2017 Status: F Source: [facility] 12:00 PM CLINIC OTHER CAMPUS REPOSITORY * [...] Kerma: 4295.0 mGy Dose Area Product (DAP): 349330.0 mGy*cm2 Fluoro Time: 20:00 min:sec Radiation dose [...] guidance. Access was exchanged for a 5 Belizean sheath. 5 Belizean pigtail catheter was placed in the cephalad abdominal aorta, aortogram was performed. Next, combination 5 [place]an Omni Flush catheter straight Bentson wire was used to traverse the aortic bifurcation. Access was exchanged for a 6 Bel[place]an Bental sheath. Left common iliac, external iliac, and left common femoral artery angiograms were performed. Access was then exchanged for a 5 Belizean C2 Cobra catheter over a Bentson wire. [...] of the left L3 lumbar artery. 2.4 Belizean microcatheter system was then used to select [...] Specimens: 0: ATTENDING RADIOLOGIST: Maximino Gr M.D. EMPLOYEE RELATIONS ADMINISTRATOR: None The procedure was performed by the: attending radiologist, without an cement tester assistant. The attending radiologist performed the following procedural activities: Entire procedure. IMPRESSION: MULTIPLE FOCI OF ACTIVE EXTRAVASATION FROM BRANCHES OF THE LEFT L3 LUMBAR ARTERY. SUCCESSFUL GELFOAM/COIL EMBOLIZATION OF THE MIDPORTION OF THIS ARTERY. INCIDENTALLY DISCOVERED DISTAL LEFT COMMON FEMORAL ARTERY TO COMMON FEMORAL VEIN ARTERIOVENOUS FISTULA. GIVEN ITS LOCATION ACROSS THE JOINT, NOT AMENABLE TO ENDOVASCULAR STENTING. RECOMMEND SURGICAL EVALUATION. Pie Topper: PSCGaudencio Transcribe Date/Time: Oct 23 2017 2:19P Dictated by : SUNSHINE GR MD This examination was interpreted and the report reviewed and electronically signed by: SUNSHINE GR MD on Oct 23 2017 2:35PM EST IR ANGIOGRAPHY SPINAL Observed: 10/23/2017 Status: F Source: [facility] 12:00 PM CLINIC OTHER CAMPUS REPOSITORY * [...] Kerma: 4295.0 mGy Dose Area Product (DAP): 515924.0 mGy*cm2 Fluoro Time: 20:00 min:sec Radiation dose [...] guidance. Access was exchanged for a 5 Belizean sheath. 5 Belizean pigtail catheter was placed in the cephalad abdominal aorta, aortogram was performed. Next, combination 5 Belizean Omni Flush catheter straight Bentson wire was used to traverse the aortic bifurcation. Access was exchanged for a 6 Bel[place]an Bental sheath. Left common iliac, external iliac, and left common femoral artery angiograms were performed. Access was then exchanged for a 5 Belizean C2 Cobra catheter over a Bentson wire. [...] of the left L3 lumbar artery. 2.4 Bel[place]an microcatheter system was then used to select [...] Specimens: 0: ATTENDING RADIOLOGIST: Maximino Gr M.D. EMPLOYEE RELATIONS ADMINISTRATOR: None The procedure was performed by the: attending radiologist, without an cement tester assistant. The attending radiologist performed the following procedural activities: Entire procedure. IMPRESSION: MULTIPLE FOCI OF ACTIVE EXTRAVASATION FROM BRANCHES OF THE LEFT L3 LUMBAR ARTERY. SUCCESSFUL GELFOAM/COIL EMBOLIZATION OF THE MIDPORTION OF THIS ARTERY. INCIDENTALLY DISCOVERED DISTAL LEFT COMMON FEMORAL ARTERY TO COMMON FEMORAL VEIN ARTERIOVENOUS FISTULA. GIVEN ITS LOCATION ACROSS THE JOINT, NOT AMENABLE TO ENDOVASCULAR STENTING. RECOMMEND SURGICAL EVALUATION. Pie Topper: MURTAZA Transcribe Date/Time: Oct 23 2017 2:19P Dictated by : SUNSHINE GR MD This examination was interpreted and the report reviewed and electronically signed by: SUNSHINE GR MD on Oct 23 2017 2:35PM EST IR ANGIOGRAPHY SPINAL Observed: 10/23/2017 Status: F Source: [facility] 12:00 PM CLINIC OTHER CAMPUS REPOSITORY * [...] Kerma: 4295.0 mGy Dose Area Product (DAP): 956289.0 mGy*cm2 Fluoro Time: 20:00 min:sec Radiation dose [...] guidance. Access was exchanged for a 5 Belizean sheath. 5 Belizean pigtail catheter was placed in the cephalad abdominal aorta, aortogram was performed. Next, combination 5 [place]an Omni Flush catheter straight Bentson wire was used to traverse the aortic bifurcation. Access was exchanged for a 6 Belizean Bental sheath. Left common iliac, external iliac, and left common femoral artery angiograms were performed. Access was then exchanged for a 5 Bel[place]an C2 Cobra catheter over a Bentson wire. [...] of the left L3 lumbar artery. 2.4 Belizean microcatheter system was then used to select [...] Specimens: 0: ATTENDING RADIOLOGIST: Maximino Gr M.D. EMPLOYEE RELATIONS ADMINISTRATOR: None The procedure was performed by the: attending radiologist, without an cement tester assistant. The attending radiologist performed the following procedural activities: Entire procedure. IMPRESSION: MULTIPLE FOCI OF ACTIVE EXTRAVASATION FROM BRANCHES OF THE LEFT L3 LUMBAR ARTERY. SUCCESSFUL GELFOAM/COIL EMBOLIZATION OF THE MIDPORTION OF THIS ARTERY. INCIDENTALLY DISCOVERED DISTAL LEFT COMMON FEMORAL ARTERY TO COMMON FEMORAL VEIN ARTERIOVENOUS FISTULA. GIVEN ITS LOCATION ACROSS THE JOINT, NOT AMENABLE TO ENDOVASCULAR STENTING. RECOMMEND SURGICAL EVALUATION. Pie Topper: MURTAZA Transcribe Date/Time: Oct 23 2017 2:19P Dictated by : SUNSHINE GR MD This examination was interpreted and the report reviewed and electronically signed by: SUNSHINE GR MD on Oct 23 2017 2:35PM EST IR ILIAC ANGIO Observed: 10/23/2017 Status: F Source: [place] 12:00 PM CLINIC OTHER CAMPUS REPOSITORY * [...] Kerma: 4295.0 mGy Dose Area Product (DAP): 757603.0 mGy*cm2 Fluoro Time: 20:00 min:sec Radiation dose [...] guidance. Access was exchanged for a 5 Belizean sheath. 5 Belizean pigtail catheter was placed in the cephalad abdominal aorta, aortogram was performed. Next, combination 5 [place]an Omni Flush catheter straight Bentson wire was used to traverse the aortic bifurcation. Access was exchanged for a 6 Belizean Bental sheath. Left common iliac, external iliac, and left common femoral artery angiograms were performed. Access was then exchanged for a 5 Belizean C2 Cobra catheter over a Bentson wire. [...] of the left L3 lumbar artery. 2.4 Belizean microcatheter system was then used to select [...] Specimens: 0: ATTENDING RADIOLOGIST: Maximino Gr M.D. EMPLOYEE RELATIONS ADMINISTRATOR: None The procedure was performed by the: attending radiologist, without an cement tester assistant. The attending radiologist performed the following procedural activities: Entire procedure. IMPRESSION: MULTIPLE FOCI OF ACTIVE EXTRAVASATION FROM BRANCHES OF THE LEFT L3 LUMBAR ARTERY. SUCCESSFUL GELFOAM/COIL EMBOLIZATION OF THE MIDPORTION OF THIS ARTERY. INCIDENTALLY DISCOVERED DISTAL LEFT COMMON FEMORAL ARTERY TO COMMON FEMORAL VEIN ARTERIOVENOUS FISTULA. GIVEN ITS LOCATION ACROSS THE JOINT, NOT AMENABLE TO ENDOVASCULAR STENTING. RECOMMEND SURGICAL EVALUATION. Pie Topper: MURTAZA Transcribe Date/Time: Oct 23 2017 2:19P Dictated by : SUNSHINE GR MD This examination was interpreted and the report reviewed and electronically signed by: SUNSHINE GR MD on Oct 23 2017 2:35PM EST IR EXIST CATH ANGIO Observed: 10/23/2017 Status: F Source: [place] F/U 12:00 PM CLINIC OTHER CAMPUS REPOSITORY * * *Final Report* * * DATE OF EXAM: Oct 23 2017 12:00PM [facility] 7512 - IR EXIST CATH ANGIO F/U [...] Kerma: 4295.0 mGy Dose Area Product (DAP): 772535.0 mGy*cm2 Fluoro Time: 20:00 min:sec Radiation dose [...] guidance. Access was exchanged for a 5 Belizean sheath. 5 Belizean pigtail catheter was placed in the cephalad abdominal aorta, aortogram was performed. Next, combination 5 Belizean Omni Flush catheter straight Bentson wire was used to traverse the aortic bifurcation. Access was exchanged for a 6 Belizean Bental sheath. Left common iliac, external iliac, and left common femoral artery angiograms were performed. Access was then exchanged for a 5 Belizean C2 Cobra catheter over a Bentson wire. [...] of the left L3 lumbar artery. 2.4 Belizean microcatheter system was then used to select [...] Specimens: 0: ATTENDING RADIOLOGIST: Maximino Gr M.D. EMPLOYEE RELATIONS ADMINISTRATOR: None The procedure was performed by the: attending radiologist, without an cement tester assistant. The attending radiologist performed the following procedural activities: Entire procedure. IMPRESSION: MULTIPLE FOCI OF ACTIVE EXTRAVASATION FROM BRANCHES OF THE LEFT L3 LUMBAR ARTERY. SUCCESSFUL GELFOAM/COIL EMBOLIZATION OF THE MIDPORTION OF THIS ARTERY. INCIDENTALLY DISCOVERED DISTAL LEFT COMMON FEMORAL ARTERY TO COMMON FEMORAL VEIN ARTERIOVENOUS FISTULA. GIVEN ITS LOCATION ACROSS THE JOINT, NOT AMENABLE TO ENDOVASCULAR STENTING. RECOMMEND SURGICAL EVALUATION. Pie Topper: MURTAZA Transcribe Date/Time: Oct 23 2017 2:19P Dictated by : SUNSHINE GR MD This examination was interpreted and the report reviewed and electronically signed by: SUNSHINE GR MD on Oct 23 2017 2:35PM EST IR RENAL ANGIO UNI Observed: 10/23/2017 Status: F Source: [place] 12:00 PM CLINIC OTHER CAMPUS REPOSITORY * [...] Kerma: 4295.0 mGy Dose Area Product (DAP): 276034.0 mGy*cm2 Fluoro Time: 20:00 min:sec Radiation dose [...] guidance. Access was exchanged for a 5 Belizean sheath. 5 Belizean pigtail catheter was placed in the cephalad abdominal aorta, aortogram was performed. Next, combination 5 Belizean Omni Flush catheter straight Bentson wire was used to traverse the aortic bifurcation. Access was exchanged for a 6 Belizean Bental sheath. Left common iliac, external iliac, and left common femoral artery angiograms were performed. Access was then exchanged for a 5 Belizean C2 Cobra catheter over a Bentson wire. [...] of the left L3 lumbar artery. 2.4 Belizean microcatheter system was then used to select [...] Specimens: 0: ATTENDING RADIOLOGIST: Maximino Gr M.D. EMPLOYEE RELATIONS ADMINISTRATOR: None The procedure was performed by the: attending radiologist, without an cement tester assistant. The attending radiologist performed the following procedural activities: Entire procedure. IMPRESSION: MULTIPLE FOCI OF ACTIVE EXTRAVASATION FROM BRANCHES OF THE LEFT L3 LUMBAR ARTERY. SUCCESSFUL GELFOAM/COIL EMBOLIZATION OF THE MIDPORTION OF THIS ARTERY. INCIDENTALLY DISCOVERED DISTAL LEFT COMMON FEMORAL ARTERY TO COMMON FEMORAL VEIN ARTERIOVENOUS FISTULA. GIVEN ITS LOCATION ACROSS THE JOINT, NOT AMENABLE TO ENDOVASCULAR STENTING. RECOMMEND SURGICAL EVALUATION. Pie Topper: PSCB Transcribe Date/Time: Oct 23 2017 2:19P Dictated by : SUNSHINE GR MD This examination was interpreted and the report reviewed and electronically signed by: SUNSHINE GR MD on Oct 23 2017 2:35PM EST IR ABDOMINAL AORTOGRAM Observed: 10/23/2017 Status: F Source: [place] 12:00 PM CLINIC OTHER CAMPUS REPOSITORY * [...] Kerma: 4295.0 mGy Dose Area Product (DAP): 610557.0 mGy*cm2 Fluoro Time: 20:00 min:sec Radiation dose [...] guidance. Access was exchanged for a 5 Belizean sheath. 5 Belizean pigtail catheter was placed in the cephalad abdominal aorta, aortogram was performed. Next, combination 5 Belizean Omni Flush catheter straight Bentson wire was used to traverse the aortic bifurcation. Access was exchanged for a 6 Belizean Bental sheath. Left common iliac, external iliac, and left common femoral artery angiograms were performed. Access was then exchanged for a 5 Belizean C2 Cobra catheter over a Bentson wire. [...] of the left L3 lumbar artery. 2.4 Belizean microcatheter system was then used to select [...] Specimens: 0: ATTENDING RADIOLOGIST: Maximino Gr M.D. EMPLOYEE RELATIONS ADMINISTRATOR: None The procedure was performed by the: attending radiologist, without an cement tester assistant. The attending radiologist performed the following procedural activities: Entire procedure. IMPRESSION: MULTIPLE FOCI OF ACTIVE EXTRAVASATION FROM BRANCHES OF THE LEFT L3 LUMBAR ARTERY. SUCCESSFUL GELFOAM/COIL EMBOLIZATION OF THE MIDPORTION OF THIS ARTERY. INCIDENTALLY DISCOVERED DISTAL LEFT COMMON FEMORAL ARTERY TO COMMON FEMORAL VEIN ARTERIOVENOUS FISTULA. GIVEN ITS LOCATION ACROSS THE JOINT, NOT AMENABLE TO ENDOVASCULAR STENTING. RECOMMEND SURGICAL EVALUATION. Pie Topper: [facility] Transcribe Date/Time: Oct 23 2017 2:19P Dictated by : SUNSHINE GR MD This examination was interpreted and the report reviewed and electronically signed by: SUNSHINE GR MD on Oct 23 2017 2:35PM EST IR EMBO HEMORRHAGE/EXTRAVAS Observed: 10/23/2017 Status: F Source: [place] 12:00 PM CLINIC OTHER CAMPUS REPOSITORY * [...] Kerma: 4295.0 mGy Dose Area Product (DAP): 262877.0 mGy*cm2 Fluoro Time: 20:00 min:sec Radiation dose [...] guidance. Access was exchanged for a 5 Belizean sheath. 5 Belizean pigtail catheter was placed in the cephalad abdominal aorta, aortogram was performed. Next, combination 5 Belizean Omni Flush catheter straight Bentson wire was used to traverse the aortic bifurcation. Access was exchanged for a 6 Belizean Bental sheath. Left common iliac, external iliac, and left common femoral artery angiograms were performed. Access was then exchanged for a 5 Belizean C2 Cobra catheter over a Bentson wire. [...] of the left L3 lumbar artery. 2.4 Belizean microcatheter system was then used to select [...] Specimens: 0: ATTENDING RADIOLOGIST: Maximino Gr M.D. EMPLOYEE RELATIONS ADMINISTRATOR: None The procedure was performed by the: attending radiologist, without an cement tester assistant. The attending radiologist performed the following procedural activities: Entire procedure. IMPRESSION: MULTIPLE FOCI OF ACTIVE EXTRAVASATION FROM BRANCHES OF THE LEFT L3 LUMBAR ARTERY. SUCCESSFUL GELFOAM/COIL EMBOLIZATION OF THE MIDPORTION OF THIS ARTERY. INCIDENTALLY DISCOVERED DISTAL LEFT COMMON FEMORAL ARTERY TO COMMON FEMORAL VEIN ARTERIOVENOUS FISTULA. GIVEN ITS LOCATION ACROSS THE JOINT, NOT AMENABLE TO ENDOVASCULAR STENTING. RECOMMEND SURGICAL EVALUATION. Pie Topper: PSCGaudencio Transcribe Date/Time: Oct 23 2017 2:19P Dictated by : SUNSHINE GR MD This examination was interpreted and the report reviewed and electronically signed by: SUNSHINE GR MD on Oct 23 2017 2:35PM EST BRIEF OP NOT Observed: 10/23/2017 Status: COMPLETED Source: [place] 11:57 AM [facility] REPOSITORY HNO ID: [id number] Author: Sunshine Gr Service: Radiology Author Type: Physician Type: Brief Op Note Filed: 10/23/2017 12:01 PM Note Text: BRIEF OPERATIVE / PROCEDURE NOTE SURGERY/PROCEDURE DATE: 10/23/17 INCISION/PROCEDURE START TIME: INCISION CLOSE/PROCEDURE END TIME: SURGEON(S)/PROCEDURALIST(S) AND EMPLOYEE RELATIONS ADMINISTRATOR(S): Maximino Gr - Primary SURGERY/PROCEDURE(S): L RP angiogram and L3 embolization ANESTHESIA: Moderate sedation FINDINGS: Bleeding from multiple foci of from left L3, embolized with gelfoam and coils. Large WOOD MECHANIST->CFV fistula ESTIMATED BLOOD LOSS: Minimal SPECIMENS: None COMPLICATIONS: None PRE-OP/PRE-PROCEDURE DIAGNOSIS: Left RP bleed POST-OP/POST-PROCEDURE DIAGNOSIS: Left L3 hemorrhage, L WOOD MECHANIST-CFV AVF SIGNATURE: Sunshine Gr MD PATIENT NAME: Paloma Cannon DATE: October 23, 2017 TIME: 11:57 AM PAGER/CONTACT #: [phone] Observed: 10/23/2017 Status: COMPLETED Source: [place] 7:48 AM [facility] REPOSITORY HNO ID: [id number] Author: Sapna Wyatt Service: Critical Care Author Type: Physician Type: Progress Notes Filed: 10/23/2017 2:43 PM Note Text: [facility] [place] STAFF PHYSICIAN NOTE OF PERSONAL INVOLVEMENT IN [...] stents on AC, HIT, recent admission to [facility] (10/13 - 10/22) for acute hypoxic resp failure due to DAH requiring PLEX, who presented to OSH c/o left-sided abdominal pain, work-up c/w acute blood loss anemia from retroperitoneal bleeding, transferred to [facility] for further mgmt. PLAN: Acute hypoxic [...] minutes. SIGNATURE: Sapna Wyatt MD [facility] PAGER:[phone] DATE of SERVICE: 10/23/17 TIME of SERVICE: 9:01 AM NURSING PROG Observed: 10/23/2017 Status: COMPLETED Source: [place] 7:29 AM [facility] REPOSITORY HNO ID: [id number] Author: Lynne Sauer) JEFF Sprague Service: Nursing Author Type: Registered Nurse Type: Nursing Progress Note Filed: 10/23/2017 7:29 AM Note Text: Nursing Progress Note Patient Name: Paloma Cannon Patient Location: [place] [address] Daily Note: 0729 Text paged Deepa WATERS R: Bed 36: Hgb=4.8. Thanks. Please adviseShane Batista This note was completed by: Lynne Sprague RN HISTORY PHYSICAL Observed: 10/23/2017 Status: COMPLETED Source: [place] 6:51 AM [facility] REPOSITORY HNO ID: [id number] Author: Kassandra Rios Service: Critical Care Author Type: Physician Type: HANDP Filed: 10/23/2017 7:18 AM Note Text: [facility] [place] STAFF PHYSICIAN NOTE OF PERSONAL INVOLVEMENT IN [...] on Prednisone, Cyclophosphamide, and recently admitted to [facility] 10/13- requiring mechanical ventilation and PLEX), DVT/PE?needing extensive percutaneous thrombectomy of her IVC and lower extremity veins followed by placement of B/L?iliac venous?stents and an?endograft into her IVC, on long-term AC, HIT, CKD III, HTN, HFrEF, peripheral neuropathy, post phlebitic syndrome, who was transferred this morning from [facility] for retroperitoneal bleeding. Ms. Cannon was recently discharged from [facility] where she was admitted 10/13- for DAH [...] prior similar episodes. Ms. Cannon presented to [facility] where she was found to have a retroperitoneal bleeding on CT and Hb dropped to 5.7 g/dL. IMPRESSION: I am seeing Ms. 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 SIGNATURE: Kassandra Rios MD [facility] PAGER:[phone] DATE of SERVICE: October 23, 2017 COMP METABOLIC PANEL Collected: 10/23/2017 Status: F Source: [place] 6:30 AM CLINIC OTHER CAMPUS REPOSITORY TYPE [...] By: #### CMP, LIPA, AMYL, CBCDIF #### [place] [phone] LIPASE Collected: 10/23/2017 Status: F Source: [place] 6:30 AM [facility] OTHER CAMPUS REPOSITORY TYPE CODE TESTS RESULT OUT OF REFERENCE UNITS RANGE LAB LIPA 12-70 U/L Lipase 48 Performed By: #### CMP, LIPA, AMYL, CBCDIF #### [place] [phone] AMYLASE Collected: 10/23/2017 Status: F Source: [place] 6:30 AM [facility] REPOSITORY TYPE CODE TESTS RESULT OUT OF REFERENCE UNITS RANGE LAB AMYL 0-137 U/L Amylase 47 Performed By: #### CMP, LIPA, AMYL, CBCDIF #### [place] [address] CBC AND DIFFERENTIAL Collected: 10/23/2017 Status: F Source: [place] 6:30 AM [facility] OTHER [place] REPOSITORY TYPE CODE TESTS RESULT OUT OF [...] k/uL Abs Lymph 1.03 LAB MONOS % [place]% 3.0 LAB AAMONO <0.87 k/uL Abs Hughes 0.52 LAB EOS % Eosin% 0.0 LAB AAEOS <0.46 k/uL Abs Eosin 0.00 LAB BASOS % Baso% 0.0 LAB AABASO <0.11 k/uL Abs Baso 0.00 LAB ABIMMG k/uL 15.33 ANC(includeSEG+BAND ) LAB META % [place]% 1.0 LAB MYELOS % Myelo% 1.0 LAB ANIIMI Anisocytosis Present LAB LFTIMI Left Shift Present LAB BSTIPW Basophilic Stippling Occasional LAB OVAIMI Ovalocytes Few LAB POLIMI Polychromasia Slight LAB PLTEST Platelet Estimate Platelet estimate adequate LAB DTYP DTYPE Manual Diff Performed By: #### CMP, LIPA, AMYL, CBCDIF #### [place] [phone] MAGNESIUM Collected: 10/23/2017 Status: F Source: [place] 6:30 AM [facility] OTHER [place] REPOSITORY TYPE CODE TESTS RESULT OUT OF REFERENCE UNITS RANGE LAB MG 1.7-2.6 mg/dL Magnesium 2.0 Performed By: #### MG1 #### [place] [phone] TYPE AND SCREEN Collected: 10/23/2017 Status: F Source: [place] 6:30 AM [facility] OTHER [place] REPOSITORY TYPE CODE TESTS RESULT OUT OF REFERENCE UNITS RANGE LAB %ABR B ABO/RH(D) POSITIVE LAB % Antibody Screen POS LAB %RADHA Antibody Identified Result Comment: ANTI-E PRESENT. ANTIBODY REACTIVITY, No Apparent Specificity. Performed By: #### TSCR #### [place] [phone] XR CHEST 1V FRONTAL Observed: 10/23/2017 Status: F Source: [facility] 6:11 AM CLINIC OTHER CAMPUS REPOSITORY * [...] resolution of previously seen bilateral airspace consolidation Pie Topper: MURTAZA Transcribe Date/Time: Oct 23 2017 6:14A Dictated by : ERASMO KELLY MD This examination was interpreted and the report reviewed and electronically signed by: ERASMO KELLY MD on Oct 23 2017 6:16AM EST [id number] ALLIED HEALTH Observed: 10/23/2017 Status: COMPLETED Source: [place] 6:05 AM [facility] REPOSITORY HNO ID: [id number] Author: Allyson Bai (Rt) Service: Radiology Author Type: [employer] Machine Operator Type: Allied Health Filed: 10/23/2017 6:13 AM [...] HISTORY PHYSICAL Observed: 10/23/2017 Status: COMPLETED Source: [place] 6:03 AM [facility] REPOSITORY HNO ID: [id number] Author: Mitchell Phan MD Service: Critical Care [...] bilateral iliac stents and IVC endograft, on shelter AC with warfarin, plasmapharesis q2 weeks, prednisone 5 mg qD), Diffuse alveolar hemorrhage (on cyclophosphamide), HIT, HFpEF, HTN, CKD, peripheral neuropathy, post-phlebitic syndrome who was admitted to [facility] MICU on 10/13 for alveolar hemorrhage. She [...] in the mesentery. She was transferred to [facility] as [facility] had no beds. On arrival to [facility] patient complained of severe excruciating pain [...] nephrotoxic agents - DVT (deep venous thrombosis) ([facility]) - Elevated CA-125 11/30/2013 244 - Essential hypertension 10/08/2015 Stable on home medications Plan: -continue to monitor on home meds - 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 Bivalirudin to Warfarin bridging - HIT (heparin-induced thrombocytopenia) ([facility]) - Nontoxic multinodular goiter - Obese [...] 0 COMPOUNDED PRESCRIPTION Outpatient physical therapyPlease call [phone] to make an appointment Disp: 1 Each [...] Signs Temp: 36.5 ?C (97.7 ?F) (10/23/17 05) Pulse: 100 (10/23/17 06) Resp: 17 (10/23/17599) BP: 126/76 (10/23/17599) MAP Non Invasive (Mean Arterial Pressure): 91 (10/23/17599) SpO2: 99 % (10/23/17599) Pain Score: 10/10 [...] NURSING PROG Observed: 10/23/2017 Status: COMPLETED Source: [place] 5:31 AM [facility] OTHER CAMPUS REPOSITORY HNO ID: [id number] Author: Nelia Sauer) Gabe Service: Nursing Author Type: Registered Nurse Type: Nursing Progress Note Filed: 10/23/2017 6:53 AM Note Text: Nursing Progress Note Patient Name: Paloma Cannon Patient Location: [place] [address] Daily Note: 0510: Pt arrived to ICU [...] EMERGENCY DEPARTMENT Observed: 10/23/2017 Status: F Source: [place] SUMMARY 5:04 AM [facility] REPOSITORY [facility] Medical Records Department [address] [place] [address] Emergency Department Summary 10/23/17 0237 MR#: [id number] Acct: [id number] Name: PALOMA CANNON Rep #: [id number] : 1990 27 From: Lydia Harley MD PCP: Peyton Rogers MD Status: DEP ER - ER Visit Summary Date of Service: 10/23/17 Chief Complaint: Abdominal pain History of Present Illness: The patient is a 27 F with left- sided abdominal pain that started around 6 PM. The patient was just discharged early in the day from the [facility]. She had been admitted for alveolar hemorrhage [...] multiple doses of Dilaudid for pain. Requested [facility] for admission. [facility] did not have ICU beds at the main campus. Patient will instead go to [place]. Patient has remained hemodynamically stable. Awaiting transfusion. Awaiting transport. Treatment Plan: As above Disposition: Transfer to [facility] Impression: 1. Retroperitoneal hematoma 2. Anemia This note was generated with [employer] dictation software. It may contain incorrect words, [...] your Primary Care Provider. Call [facility] ([phone]) or report to the closest Emergency Room. Call 911 if necessary. 10/23/17 0504 <Electronically signed by Lydia Harley MD> Date Lydia Harley MD Cosigner Signature (If Indicated): Date CC: Peyton Rogers MD URINALYSIS, COMPLETE Collected: 10/23/2017 Status: F Source: [place] 1:30 AM [facility] REPOSITORY Order Comment: How was Urine Obtained? [...] URINE SEEN Performed By: #### L400.0001 #### [facility] [address] [place], [address] TYPE AND SCREEN Collected: 10/23/2017 Status: F Source: [place] 1:30 AM [facility] REPOSITORY Order Comment: Reason for Type AND Screen/Red Cells: SURGERY TYPE CODE TESTS RESULT OUT OF RANGE REFERENCE UNITS LAB B10.0800 B Normal BLOOD TYPE GEL POSITIVE LAB B100.4000 High Antibody POSITIVE Screen Performed By: #### B101.7450, B101.1999 #### [facility] [address] [place], [place], [address] ANTIBODY PANEL ID Collected: 10/23/2017 Status: C Source: [place] 1:30 [facility] REPOSITORY Order Comment: Reason for Type AND Screen/Red Cells: SURGERY TYPE CODE TESTS RESULT OUT OF REFERENCE UNITS RANGE LAB B101.2000 ANTIBODY PANEL ANTI-E Performed By: #### B101.7450, B101.1999 #### [facility] [address] [place], [address] COMPREHENSIVE METABOLIC Collected: 10/23/2017 Status: F Source: [facility] 12:30 AM [facility] REPOSITORY TYPE CODE TESTS RESULT OUT [...] 9 Performed By: #### L500.4050, L501.2450 #### [facility] [address] [place], [address] LIPASE Collected: 10/23/2017 Status: F Source: [place] 12:30 AM [facility] REPOSITORY TYPE CODE TESTS RESULT OUT OF RANGE REFERENCE UNITS LAB L501.2450 73-393 U/L Normal LIPASE 248 Performed By: #### L500.4050, L501.2450 #### [facility] [address] [place], [address] CBC W/DIFF, AUTOMATED Collected: 10/23/2017 Status: C Source: [place] 12:30 AM [facility] REPOSITORY TYPE CODE TESTS RESULT OUT OF RANGE REFERENCE UNITS LAB L100.1000 4.4-11.0 K/mm3 High WBC 16.3 LAB L100.1200 4.2-5.4 M/mm3 Low RBC 2.02 LAB L100.1300 12.0-15.0 g/dl Low alert HGB 5.7 Result Comment: CRITICAL VALUE VERIFIED. CALLED TO [facility] 10/23/17 0110 Nathalia Jones. RESULTS READ BACK [...] as: November Performed By: #### L100.0100 #### [facility] [address] [place], [address] PROTHROMBIN TIME W/INR Collected: 10/23/2017 Status: F Source: [place] 12:30 AM [facility] REPOSITORY TYPE CODE TESTS RESULT OUT OF RANGE REFERENCE UNITS LAB L300.4150 11.7-14.9 SECONDS High PROTIME 15.5 LAB L300.4200 Normal INR 1.2 Performed By: #### L300.3900 #### [facility] [address] [place], [address] ,SERUM,HCG QUALI. Collected: Status: F Source: [place] 10/23/2017 12:30 AM [facility] REPOSITORY TYPE CODE TESTS RESULT OUT OF REFERENCE UNITS RANGE LAB L700.7000 0-9 Nonpreg Negative Normal HCGSQUAL NEGATIVE LAB L700.6700 =>Qualitative mIU/mL Normal HCG Qual 2 triggr Performed By: #### L700.6800 #### [facility] [address] [place] [place], [address] PARTIAL THROMBOPLAST Collected: 10/23/2017 Status: F Source: [place] TIME 12:30 AM [facility] REPOSITORY TYPE CODE TESTS RESULT OUT OF RANGE REFERENCE UNITS LAB L300.4310 24.1-36.2 Seconds Normal PTT 30.0 Performed By: #### L300.4310 #### [facility] [address] [place], [address] ABDOMEN/PELVIS WITHOUT Observed: 10/23/2017 Status: F Source: [place] CONT 12:23 AM [facility] REPOSITORY [facility] Imaging Services [address] [place] [address] Abdomen/Pelvis without Cont MR#: [id number] Acct: [id number] Name: PALOMA CANNON Rep #: [id number] : 1990 F 27 From: Raciel Briggs MD PCP: Peyton Rogers MD Status: REG ER Study: Abdomen/Pelvis without Cont Date of Exam: 10/23/17 Exam# [id number] Ordering Dr: Lydia Harley MD STUDY: CT [...] CC: Peyton Rogers MD; Lydia Harley MD Pie Topper: Signed SR-ABDOMEN/PELVIS WITHOUT Observed: 10/23/2017 Status: F Source: [facility] IMPORT 12:00 AM [facility] REPOSITORY Images were obtained outside of [facility] [id number] NURSING PROG Observed: 10/22/2017 Status: COMPLETED Source: [place] 4:00 PM [facility] REPOSITORY HNO ID: [id number] Author: Hank (Rn) JEFF Saeed Service: (none) Author Type: Registered Nurse Type: Nursing Progress Note Filed: 10/22/2017 4:17 PM Note Text: Nursing Progress Note Patient Name: Paloma Cannon Patient Location: [place] [address] Daily Note:Pt discharged at 1600, going home in stable condition. Left floor via wheelchair, pushed by . Going home in family car. This note was completed by: Hank Saeed RN PLAN OF CARE Observed: 10/22/2017 Status: COMPLETED Source: [place] 1:55 PM [facility] REPOSITORY HNO ID: [id number] Author: Larisa [place]ila (Pharmacist) Service: Pharmacy Author [...] Pharmacist October 22, 2017 1:55 PM Pager: [phone] 10/22/2017 1:55 PM Medication List START taking these medications COMPOUNDED PRESCRIPTION Outpatient physical therapy Please call [phone] to make an appointment CHANGE how you [...] tablet CNDS Observed: 10/22/2017 Status: COMPLETED Source: [place] 1:31 PM [facility] REPOSITORY [facility] ID: [id number] Author: Ranjan Mitchell Service: General Internal Medicine [...] 2: 10/16; 10/18 US Spleen DVT US HOSPITAL COURSE: 27 year old female who [...] Post phlebitic syndrome She initially presented to [facility] ED with hemoptysis/SOB - found to be in increased work of breathing and low sats - was intubated (10/13/17). Initial labs: Hgb 10.1, WBC 17, INR 2.1 (last dose of Warfarin 5 mg on 4/5/18 evening), Cr 1.32, K 5.0, Bicarb 18, AG 18, Lactate 12.4. Initial ABG on 100% FiO2/PEEP 14: 7.29, 44,79. Was transferred to [facility] MICU for further management of DAH on [...] COMPOUNDED PRESCRIPTION Outpatient physical therapy Please call [phone] to make an appointment Qty: 1 Each [...] Time Provider Department Center 10/30/2017 11:40 AM [id number] [facility] 10/30/2017 11:40 AM [id number] [facility] 10/30/2017 12:30 PM [id number]-IUGYEOWGH [facility] [place] 11/13/2017 12:00 PM [id number] [facility] 11/24/2017 9:00 AM [id number], CHITRA INTMWS [facility] [place] 11/27/2017 12:00 PM [id number]-GCYPIEASS [facility] [place] 12/05/2017 8:15 AM [id number]-IVINKNIL, LISA (PT) PTWS [facility] MICHA 12/11/2017 12:00 PM [id number]-XMMFWMYWY [facility] [place] 12/11/2017 12:20 PM [id number]-MP CHEST MAIN A21 RADMN RADIO A BLDG 12/11/2017 1:25 PM 5091-GUILLAUME ALICEA PULM A/E/R/G 12/11/2017 1:25 PM 5091-GUILLAUME ALICEA PULM A/E/R/G 12/25/2017 12:00 PM [id number]-PZOVTTKOD [facility] [place] 01/08/2018 12:00 PM [id number]-JUJKJOBJZ [facility] [place] 01/22/2018 12:00 PM 193623-XKQYTXEQS [facility] [place] 02/05/2018 12:00 PM [id number]-UTRNZYCYR [facility] [place] TIME OF CARE (Use first blank if not applicable): TIME OF CARE: Discharge Management: I personally spent greater than 30 minutes involved in the discharge management of this patient. SIGNATURE: Edwige Keene MD PATIENT NAME: Paloma Cannon DATE: October 22, 2017 TIME: 1:31 PM PAGER/CONTACT #: [phone] CBC Collected: 10/22/2017 Status: F Source: [place] 12:45 PM [facility] REPOSITORY TYPE CODE TESTS RESULT OUT OF [...] By: #### CBC #### [facility] [address] [place], [place] [address] TYPE AND SCREEN Collected: 10/22/2017 Status: F Source: [place] 12:45 PM [facility] REPOSITORY TYPE CODE TESTS RESULT OUT OF REFERENCE UNITS RANGE LAB %ABR B ABO/RH(D) POSITIVE LAB % Antibody POS Screen Performed By: #### TSCR #### [facility] [address] [place], [place] [address] PLAN OF CARE Observed: 10/22/2017 Status: COMPLETED Source: [place] 12:40 PM [facility] REPOSITORY HNO ID: [id number] Author: Dominique Rios Service: Hematology/Oncology Author Type: [...] Service PROGRESS Observed: 10/22/2017 Status: COMPLETED Source: [place] 8:01 AM [facility] REPOSITORY HNO ID: [id number] Author: Ranjan Mitchell Service: General Internal Medicine [...] warmth over the legs bilaterally NEURO: AOx3, special education supervisor grossly intact, moving all extremities. There is [...] and she was transferred back to the [facility] on 10/19. # Diffuse alveolar hemorrhage [...] on 10/16 and 10/18. - Transferred to [facility] on 10/19 - Steroids decreased to [...] October 22, 2017 TIME: 8:51 AM PAGER: [phone] I have reviewed the progress note documented by the resident, and I personally confirmed/participated in the fernandes components. I evaluated and examined the patient with the resident team and reviewed the relevant data. I have discussed the case and management of the patient's care with the healthcare team, including residents, nursing, case aide and the patient. Her h/h of 7.3 [...] discussion with hematology and RN Ranjan matson [id number] 10/22/2017 1:38 PM CBC Collected: 10/22/2017 Status: F Source: [place] 4:12 AM [facility] [place] REPOSITORY TYPE CODE TESTS RESULT OUT OF [...] CMP, MG1, PHOS #### [facility] [address] [place], [place] [address] PROTIME Collected: 10/22/2017 Status: F Source: [place] 4:12 AM [facility] REPOSITORY TYPE CODE TESTS RESULT OUT OF RANGE REFERENCE UNITS LAB PSEC 9.7-13.0 sec PT Sec 11.5 LAB INR 0.9-1.3 PT INR 1.1 Result Comment: Vitamin K Antagonist (VKA) Therapeutic Range: INR 2 to 3 (Target INR of 2.5) Note: For patients treated with VKA drugs, such as warfarin, the [employer] 2012 Guideline recommends [...] Chest 2012, 141:7S-47S Diogenes RA, et al. [facility] 2017, 70: 252-289 Performed By: #### CBC, PT, CMP, MG1, PHOS #### [facility] [address] [place] [address] COMP METABOLIC PANEL Collected: 10/22/2017 Status: F Source: [place] 4:12 AM [facility] REPOSITORY TYPE CODE TESTS RESULT OUT OF REFERENCE UNITS RANGE LAB TP 6.3-8.0 g/dL Low Protein, Total 5.1 LAB ALB 3.9-4.9 g/dL Low Albumin 3.5 LAB CA 8.5-10.2 mg/dL Calcium, Total 8.5 LAB TBIL 0.2-1.3 mg/dL Bilirubin, Total 0.4 LAB ALKP 32-117 U/L Alkaline Phosphatase 38 LAB AST 13-35 U/L AST 19 LAB GLU 74-99 mg/dL Glucose 96 Result Comment: The [place] Diabetes Association (ADA) provides guidance for cutoff [...] Standards of Medical Care in Diabetes 2016, [employer]. Diabetes Care. 2016.39(Suppl 1). LAB [...] CMP, MG1, PHOS #### [facility] [address] [place], [place] [address] MAGNESIUM Collected: 10/22/2017 Status: F Source: [place] 4:12 AM [facility] REPOSITORY TYPE CODE TESTS RESULT OUT OF REFERENCE UNITS RANGE LAB MG 1.7-2.3 mg/dL Magnesium 2.1 Performed By: #### CBC, PT, CMP, MG1, PHOS #### [facility] [address] [place], [place] [address] PHOSPHORUS Collected: 10/22/2017 Status: F Source: [place] 4:12 AM [facility] REPOSITORY TYPE CODE TESTS RESULT OUT OF REFERENCE UNITS RANGE LAB PHOS 2.7-4.8 mg/dL Phosphorus 2.7 Performed By: #### CBC, PT, CMP, MG1, PHOS #### [facility] [address] [place], [place] [address] CONSULT Observed: 10/21/2017 Status: COMPLETED Source: [place] 1:33 PM [facility] REPOSITORY HNO ID: [id number] Author: Rj Muro Service: Neurology Author Type: Physician Type: Consults Filed: 10/22/2017 10:04 AM Note Text: GENERAL NEUROLOGY, INPATIENT INITIAL CONSULT [facility] SERVICE DATE: October 21, 2017 SERVICE [...] and she was transferred back to the [facility] on 10/19. She also received solumedrol [...] ? Coordination: Finger-to- nose-finger intact bilaterally and Yvtm-cw-nmap intact bilaterally. ? Rapid Alternating movements: intact [...] setting). Signed: Lisseth Hinojosa DO Title: Neurology Juan Date: October 21, 2017 Time: 1:34 PM [...] Neurologist - [facility] PROGRESS Observed: 10/21/2017 Status: COMPLETED Source: [place] 8:51 AM [facility]AMP[facility] REPOSITORY HNO ID: [id number] Author: Ranjan Mitchell Service: General Internal Medicine [...] warmth over the legs bilaterally NEURO: AOx3, special education supervisor grossly intact, moving all extremities. There is [...] and she was transferred back to the [facility] on 10/19. # Diffuse alveolar hemorrhage [...] on 10/16 and 10/18. - Transferred to [facility] on 10/19 - Steroids decreased to prednisone 80 mg QD on 10/21 - No hemoptysis or pulmonary symptoms PLAN: - Continue prednisone 80 mg QD and will taper according to hematology recs - Increase solumedrol to 250 if hemoptysis recurs and persists. - CBC daily - Follow up with [facility] on plan for outpatient AC ? [...] October 21, 2017 TIME: 8:51 AM PAGER: [phone] I have reviewed the progress note documented by the resident, and I personally confirmed/participated in the fernandes components. I evaluated and examined the patient with the resident team and reviewed the relevant data. I have discussed the case and management of the patient's care with the healthcare team, including residents, nursing, case aide and the patient. Breathing ok DAH resolved Cr up from yesterday but getting volume contraction, @ baseline Her foot numbeness is likely from peripheral neuropathy ? From critical illness vs APLA Would get neuro on board. Home dose diuresis after skipping one day Aim for home soon Ranjan matson [id number] 10/21/2017 2:01 PM PROTIME Collected: 10/21/2017 Status: F Source: [place] 3:56 AM [facility] [place] REPOSITORY TYPE CODE TESTS RESULT OUT OF RANGE REFERENCE UNITS LAB PSEC 9.7-13.0 sec PT Sec 11.1 LAB INR 0.9-1.3 PT INR 1.1 Result Comment: Vitamin K Antagonist (VKA) Therapeutic Range: INR 2 to 3 (Target INR of 2.5) Note: For patients treated with VKA drugs, such as warfarin, the [employer] 2012 Guideline recommends [...] Chest 2012, 141:7S-47S Diogenes RA, et al. [facility] 2017, 70: 252-289 Performed By: #### PT, CBC, CMP, MG1, PHOS #### [facility] [address] [place] [address] CBC Collected: 10/21/2017 Status: F Source: [place] 3:56 AM [facility] REPOSITORY TYPE CODE TESTS RESULT OUT OF [...] CMP, MG1, PHOS #### [facility] [address] [place], [place] [address] COMP METABOLIC PANEL Collected: 10/21/2017 Status: F Source: [place] 3:56 AM [facility] REPOSITORY TYPE CODE TESTS RESULT OUT OF REFERENCE UNITS RANGE LAB TP 6.3-8.0 g/dL Low Protein, Total 5.9 LAB ALB 3.9-4.9 g/dL Albumin 3.9 LAB CA 8.5-10.2 mg/dL Calcium, Total 8.9 LAB TBIL 0.2-1.3 mg/dL Bilirubin, Total 0.4 LAB ALKP 32-117 U/L Alkaline Phosphatase 45 LAB AST 13-35 U/L AST 15 LAB GLU 74-99 mg/dL Glucose High 113 Result Comment: The [place] Diabetes Association (ADA) provides guidance for cutoff [...] Standards of Medical Care in Diabetes 2016, [employer]. Diabetes Care. 2016.39(Suppl 1). LAB [...] CMP, MG1, PHOS #### [facility] [address] [place] [address] MAGNESIUM Collected: 10/21/2017 Status: F Source: [place] 3:56 AM [facility] REPOSITORY TYPE CODE TESTS RESULT OUT OF REFERENCE UNITS RANGE LAB MG 1.7-2.3 mg/dL Magnesium 2.1 Performed By: #### PT, CBC, CMP, MG1, PHOS #### [facility] [address] [place] [address] PHOSPHORUS Collected: 10/21/2017 Status: F Source: [place] 3:56 AM [facility] REPOSITORY TYPE CODE TESTS RESULT OUT OF REFERENCE UNITS RANGE LAB PHOS 2.7-4.8 mg/dL Phosphorus 2.8 Performed By: #### PT, CBC, CMP, MG1, PHOS #### [facility] [address] [place] [address] NURSING PROG Observed: 10/20/2017 Status: COMPLETED Source: [place] 8:22 PM [facility] REPOSITORY HNO ID: [id number] Author: Luca (Rn) JEFF Gross Service: (none) Author Type: Registered Nurse Type: Nursing Progress Note Filed: 10/20/2017 10:04 PM Note Text: Nursing Progress Note Patient Name: Paloma Cannon Patient Location: [id number] [id number]/[id number] Daily Note: 820PM, patient c/o of new [...] FONDAPARINUX ASSAY Collected: 10/20/2017 Status: F Source: [place] 3:58 PM [facility] REPOSITORY TYPE CODE TESTS RESULT OUT OF [...] (body weight >100 kg) once daily, the rubq-npotfc-rqerqjkm doses provide similar mean steady-state peaks and minimum plasma concentrations across all body weight categories. The mean peak steady-state plasma concentration is in the range of 1.20 to 1.26 mg/L. In these patients, the mean minimum steady-state plasma concentration is in the range of 0.46 to 0.62 mg/L. (Prescribing information for Arixtra from [employer], April 2010) Note: The fondaparinux assay is performed by an anti-Xa methodology and that comcomitant therapy with unfractionated or low molecular weight heparin could falsely elevate the fondaparinux levels. Performed By: #### FONDXA #### [facility] [address] [place], [place] [address] CASE MANAGEM Observed: 10/20/2017 Status: COMPLETED Source: [place] 3:22 PM [facility] REPOSITORY HNO ID: [id number] Author: Posey (Sw) Pokryfky Service: Care Management Author Type: Painting Department Supervisor Type: Care Mgt Progress Note Filed: 10/20/2017 [...] any weekend questions or needs, contact pager #[phone]. SIGNATURE: JUAN PABLO Glover PATIENT NAME: Paloma Cannon DATE: October 20, 2017 TIME: 3:22 PM PAGER/CONTACT #: [phone] THERAPY NT Observed: 10/20/2017 Status: COMPLETED Source: [place] 10:56 AM [facility] REPOSITORY HNO ID: [id number] Author: Renetta (Pt) Dominic Service: Physical Therapy Author Type: Physical Therapist Type: Therapy (PT/OT/Speech/Resp) Filed: 10/20/2017 11:09 AM Note Text: Physical Therapy Evaluation SERVICE DATE: 10/20/2017 SERVICE TIME: 0955 to 1040 ROOM: [place] [address] Recommended Discharge Disposition: Outpatient Physical Therapy Recommended [...] (generalized);Unsteadiness on feet Interventions Provided: Evaluation;Therapeutic Activity (03412);Therapeutic Exercise (24416) $ Evaluation-Moderate (48762) Billed Units: 1 unit Therapeutic Exercise (72238) Treatment Minutes: 10 1 unit Skilled Intervention(s): [...] extension -HS curls -Heel raises Therapeutic Activity (50404) Treatment Minutes: 17 1 unit Skilled Intervention(s): [...] Lives With: Significant Other Assistance Available: multimedia author Entry To Home: No Stairs Number Of [...] 20, 2017 TIME: 10:57 AM PAGER/CONTACT #: [phone] PROTIME Collected: 10/20/2017 Status: F Source: [place] 4:15 AM CLINIC MAIN CAMPUS REPOSITORY TYPE CODE TESTS RESULT OUT OF RANGE REFERENCE UNITS LAB PSEC 9.7-13.0 sec PT Sec 11.5 LAB INR 0.9-1.3 PT INR 1.1 Result Comment: Vitamin K Antagonist (VKA) Therapeutic Range: INR 2 to 3 (Target INR of 2.5) Note: For patients treated with VKA drugs, such as warfarin, the [employer] 2012 Guideline recommends [...] Chest 2012, 141:7S-47S Diogenes RA, et al. [facility] 2017, 70: 252-289 Performed By: #### PT, CBC, IRON, CMP, MG1, PHOS, TRANSF, FERR #### [facility] [address] [place] [address] CBC Collected: 10/20/2017 Status: F Source: [place] 4:15 AM [facility] REPOSITORY TYPE CODE TESTS RESULT OUT OF [...] PHOS, TRANSF, FERR #### [facility] [address] [place], [place] [address] IRON AND TIBC Collected: 10/20/2017 Status: F Source: [place] 4:15 AM [facility] REPOSITORY TYPE CODE TESTS RESULT OUT OF REFERENCE UNITS RANGE LAB IRN 41-186 ug/dL Low Iron 28 LAB TIBC 232-386 ug/dL TIBC 300 LAB SAT 15-57 % Low Transferrin Saturatn 9 Performed By: #### PT, CBC, IRON, CMP, MG1, PHOS, TRANSF, FERR #### [facility] [address] [place], [place] [address] COMP METABOLIC PANEL Collected: 10/20/2017 Status: F Source: [place] 4:15 AM [facility] REPOSITORY TYPE CODE TESTS RESULT OUT OF REFERENCE UNITS RANGE LAB TP 6.3-8.0 g/dL Low Protein, Total 5.7 LAB ALB 3.9-4.9 g/dL Albumin 3.9 LAB CA 8.5-10.2 mg/dL Calcium, Total 8.5 LAB TBIL 0.2-1.3 mg/dL Bilirubin, Total 0.4 LAB ALKP 32-117 U/L Alkaline Phosphatase 44 LAB AST 13-35 U/L AST 13 LAB GLU 74-99 mg/dL Glucose High 202 Result Comment: The [place] Diabetes Association (ADA) provides guidance for cutoff [...] Standards of Medical Care in Diabetes 2016, [employer]. Diabetes Care. 2016.39(Suppl 1). LAB [...] PHOS, TRANSF, FERR #### [facility] [address] [place] [address] MAGNESIUM Collected: 10/20/2017 Status: F Source: [place] 4:15 AM [facility] REPOSITORY TYPE CODE TESTS RESULT OUT OF REFERENCE UNITS RANGE LAB MG 1.7-2.3 mg/dL Magnesium 2.1 Performed By: #### PT, CBC, IRON, CMP, MG1, PHOS, TRANSF, FERR #### [facility] [address] [place] [address] PHOSPHORUS Collected: 10/20/2017 Status: F Source: [place] 4:15 AM [facility] REPOSITORY TYPE CODE TESTS RESULT OUT OF REFERENCE UNITS RANGE LAB PHOS 2.7-4.8 mg/dL Phosphorus 3.2 Performed By: #### PT, CBC, IRON, CMP, MG1, PHOS, TRANSF, FERR #### [facility] [address] [place] [address] TRANSFERRIN Collected: 10/20/2017 Status: F Source: [place] 4:15 AM [facility] REPOSITORY TYPE CODE TESTS RESULT OUT OF REFERENCE UNITS RANGE LAB TRANSF 200-360 mg/dL Transferrin 235 Performed By: #### PT, CBC, IRON, CMP, MG1, PHOS, TRANSF, FERR #### [facility] [address] [place], [place] [address] FERRITIN Collected: 10/20/2017 Status: F Source: [place] 4:15 AM [facility] REPOSITORY TYPE CODE TESTS RESULT OUT OF REFERENCE UNITS RANGE LAB FERR 14.7-205.1 ng/mL Ferritin 156.0 Performed By: #### PT, CBC, IRON, CMP, MG1, PHOS, TRANSF, FERR #### [facility] [address] [address] [place], [place] [address] HISTORY PHYSICAL Observed: 10/19/2017 Status: COMPLETED Source: [place] 9:19 PM [facility] REPOSITORY HNO ID: [id number] Author: Ranjan Mitchell Service: General Internal Medicine Author Type: Physician Type: HANDP Filed: 10/20/2017 2:40 PM Note Text: HISTORY AND PHYSICAL EXAMINATION TRANSFER OF CARE FROM [facility] TO [place] SERVICE DATE: 10/19/2017 SERVICE TIME: 09.21 PM [...] Post phlebitic syndrome She initially presented to [facility] ED with hemoptysis/SOB - found to be in increased work of breathing and low sats - was intubated (10/13/17). Initial labs: Hgb 10.1, WBC 17, INR 2.1 (last dose of Warfarin 5 mg on 10/12/17 evening), Cr 1.32, K 5.0, Bicarb 18, AG 18, Lactate 12.4. Initial ABG on 100% FiO2/PEEP 14: 7.29, 44,79. Was transferred to [facility] MICU for further management of DAH on [...] 19, 2017 TIME: 9:19 PM PAGER/CONTACT #: [phone] Please see resident note above. Agree with above. Full addendum to this MICU transfer to follow by Staff Dr. Mitchell. Elida Erickson, Internal Medicine Resident Pager [phone] 10/20/2017 12:06 PM I have reviewed the progress note documented by the resident, and I personally confirmed/participated in the fernandes components. I evaluated and examined the patient with the resident team and reviewed the relevant data. I have discussed the case and management of the patient's care with the healthcare team, including residents, nursing, case aide and the patient. Breathing ok No pulm crackles, and sats are ok Her legs are bigger had prior R peripheral neuropathy But endorses new symptoms on L side, Will reassess after diuresis. No other focal neuro symptoms to consider stroke Arixtra decreased to 7.5 based on discussion with hematology staff and steroids changed to PO 80 mg Ranjan matson [id number] 10/20/2017 2:40 PM NURSING PROG Observed: 10/19/2017 Status: COMPLETED Source: [place] 7:40 PM [facility] REPOSITORY HNO ID: [id number] Author: Emilie SanchezRn) JEFF Robles Service: (none) Author Type: Registered Nurse Type: Nursing Progress Note Filed: 10/19/2017 7:52 PM Note Text: Nursing Progress Note Patient Name: Paloma Cannon Patient Location: 017 Transfer Note: Patient transferred into room/unit [facility] in stable condition. Actions taken: No futher actions taken at this time. Will continue to monitor and check with patient. Patient belongings with patient. Patient oriented to room and nursing call button. This note was completed by: Emilie Robles RN NURSING PROG Observed: 10/19/2017 Status: COMPLETED Source: [place] 6:37 PM [facility] REPOSITORY HNO ID: [id number] Author: Opal aSnchezRn) JEFF Eric Service: Nursing Author Type: Registered Nurse Type: Nursing Progress Note Filed: 10/19/2017 7:37 PM Note Text: Nursing Progress Note Patient Name: Paloma Cannon Patient Location: G061 [id number]/[id number] Transfer Note: Report called to Lisbet Sanchez ( accepting nursse) on G91. Patient to be transferred to [facility] and is in stable condition. The patient's spouse was called and given the number to 1 unit and informed of the transfer. His questions were answered. Belongings sent with her include: glasses, glasses case, laptop computer and charging cord, cell phone and charging cord, hat, backpack and body spray. The patient has transfer orders and the note of sign out [facility] is completed. At 19:28pm transferred in stable condition to [facility] with all belongings. This note was completed by: Opal Eric RN PLAN OF CARE Observed: 10/19/2017 Status: COMPLETED Source: [place] 5:03 PM [facility] REPOSITORY HNO ID: [id number] Author: Giovanny London) Bella Service: Critical Care Author Type: Resident Type: Plan of Care Filed: 10/19/2017 5:03 PM Note Text: Patient to be transferred out of MICU to [facility]. Signout [facility] to [facility]. Giovanny Blanco MD October 19, 2017 5:03 PM CASE MANAGEM Observed: 10/19/2017 Status: COMPLETED Source: [place] 12:41 PM [facility] REPOSITORY HNO ID: [id number] Author: Radha Hope RN Service: Case Management Author Type: Registered Nurse Type: Care Mgt Progress Note Filed: 10/19/2017 12:42 PM Note Text: CARE MANAGEMENT PROGRESS NOTE SERVICE DATE: 10/19/2017 SERVICE TIME: 12:41 PM LOS: 6 days Needs Prior to Discharge: To Be Determined Anticipate transfer to [facility]. D/C needs and date TBD. SIGNATURE: Radha Hope RN PATIENT NAME: Paloma Cannon DATE: October 19, 2017 TIME: 12:41 PM PAGER/CONTACT #: [phone] CBC Collected: 10/19/2017 Status: F Source: [place] 12:34 PM [facility] REPOSITORY TYPE CODE TESTS RESULT OUT OF [...] By: #### CBC #### [facility] [address] [place], [place] [address] PROGRESS Observed: 10/19/2017 Status: COMPLETED Source: [place] 11:19 AM [facility] [place] REPOSITORY HNO ID: [id number] Author: Stephane Austin Service: Critical Care Author Type: Physician Type: Progress Notes Filed: 10/19/2017 1:24 PM Note Text: MICU PROGRESS NOTE WITH [facility] Primary Service: [address] Team SERVICE DATE: 10/19/2017 SERVICE TIME: 0700 [...] for chronic LE edema - Transfer to [facility] SUBJECTIVE: - No acute events overnight, [...] 19, 2017 TIME: 11:19 AM PAGER/CONTACT #: [phone] [facility] STAFF PHYSICIAN NOTE OF PERSONAL INVOLVEMENT IN [...] bilateral iliac stents and IVC endograft, on shelter AC with warfarin, plasmapharesis q2 weeks, prednisone [...] Extubated after rounds. Doing well off ventilator. 4/10: Blood-tinged sputum, left-sided chest pain and increased [...] minutes. SIGNATURE: Stephane Austin MD [facility] PAGER:[phone] DATE of SERVICE: October 19, 2017 TIME of SERVICE: 1:24 PM CONSULT PROG Observed: 10/19/2017 Status: COMPLETED Source: [place] 10:35 AM [facility] REPOSITORY O ID: [id number] Author: Juan Christopher (Fel) Service: Hematology/Oncology Author [...] eGFR-All Other Races . 54 45 DVT 10/14/17: Chronic R common femoral DVT, AV [...] MD Fellow, Hematology and Medical Oncology Pager: [phone] PROTIME Collected: 10/19/2017 Status: F Source: [place] 4:48 AM [facility] REPOSITORY TYPE CODE TESTS RESULT OUT OF RANGE REFERENCE UNITS LAB PSEC 9.7-13.0 sec PT Sec 11.4 LAB INR 0.9-1.3 PT INR 1.1 Result Comment: Vitamin K Antagonist (VKA) Therapeutic Range: INR 2 to 3 (Target INR of 2.5) Note: For patients treated with VKA drugs, such as warfarin, the [employer] 2012 Guideline recommends [...] to 3.5 (target INR of 3). Michael PLASENCIA et disha. Chest 2012, 141:7S-47S Diogenes RESENDIZ et al. [facility] 2017, 70: 252-289 Performed By: #### PT #### [facility] [address] [address], [place] [address] PROTIME Collected: 10/18/2017 Status: F Source: [place] 11:25 PM [facility] REPOSITORY TYPE CODE TESTS RESULT OUT OF RANGE REFERENCE UNITS LAB PSEC 9.7-13.0 sec PT Sec 11.7 LAB INR 0.9-1.3 PT INR 1.1 Result Comment: Vitamin K Antagonist (VKA) Therapeutic Range: INR 2 to 3 (Target INR of 2.5) Note: For patients treated with VKA drugs, such as warfarin, the [employer] 2012 Guideline recommends [...] Chest 2012, 141:7S-47S Diogenes RESENDIZ et al. [facility] 2017, 70: 252-289 Performed By: #### PT, CMP, MG1, PHOS, CBC #### [facility] [address] [place], [place] [address] COMP METABOLIC PANEL Collected: 10/18/2017 Status: F Source: [place] 11:25 PM [facility] REPOSITORY TYPE CODE TESTS RESULT OUT OF REFERENCE UNITS RANGE LAB TP 6.3-8.0 g/dL Low Protein, Total 5.7 LAB ALB 3.9-4.9 g/dL Low Albumin 3.8 LAB CA 8.5-10.2 mg/dL Low Calcium, Total 8.4 LAB TBIL 0.2-1.3 mg/dL Bilirubin, Total 0.7 LAB ALKP 32-117 U/L Alkaline Phosphatase 45 LAB AST 13-35 U/L AST 16 LAB GLU 74-99 mg/dL Glucose High 195 Result Comment: The [place] Diabetes Association (ADA) provides guidance for cutoff [...] Standards of Medical Care in Diabetes 2016, [employer]. Diabetes Care. 2016.39(Suppl 1). LAB [...] MG1, PHOS, CBC #### [facility] [address] [place], [place] [address] MAGNESIUM Collected: 10/18/2017 Status: F Source: [place] 11:25 PM [facility] REPOSITORY TYPE CODE TESTS RESULT OUT OF REFERENCE UNITS RANGE LAB MG 1.7-2.3 mg/dL Magnesium 2.1 Performed By: #### PT, CMP, MG1, PHOS, CBC #### [address] [address] PHOSPHORUS Collected: 10/18/2017 Status: F Source: [place] 11:25 PM [facility] REPOSITORY TYPE CODE TESTS RESULT OUT OF REFERENCE UNITS RANGE LAB PHOS 2.7-4.8 mg/dL Phosphorus 3.3 Performed By: #### PT, CMP, MG1, PHOS, CBC #### [address] [address] CBC Collected: 10/18/2017 Status: F Source: [place] 11:25 [facility] REPOSITORY TYPE CODE TESTS RESULT OUT [...] #### PT, CMP, MG1, PHOS, CBC #### [facility] [address] [place], [place] [address] FONDAPARINUX ASSAY Collected: 10/18/2017 Status: F Source: [place] 3:54 PM [facility] REPOSITORY TYPE CODE TESTS RESULT OUT OF REFERENCE UNITS RANGE LAB JEF 0.00 mg/L Fondaparinux High 1.69 Performed By: #### FONDXA #### [facility] [address] [place], [place] [address] PROGRESS Observed: 10/18/2017 Status: COMPLETED Source: [place] 3:17 PM [facility] REPOSITORY HNO ID: [id number] Author: Carmita (Rn) JFEF Verdin Service: (none) Author Type: Registered Nurse Type: Progress Notes Filed: 10/18/2017 3:18 PM Note Text: Opened in error.Carmita Verdin RN US ABD SPLEEN Observed: 10/18/2017 Status: F Source: [place] 1:12 PM [facility] [place] REPOSITORY * * *Final Report* * * [...] SPLENOMEGALY, SIMILAR TO CT 02/03/2017. NO LESION. Pie Topper: [facility] Transcribe Date/Time: Oct 18 2017 1:30P Dictated by : FRANTZ MONROY MD This examination was interpreted and the report reviewed and electronically signed by: CAROLYN YEBOAH MD on Oct 18 2017 1:44PM EST [id number] PROCEDURE Observed: 10/18/2017 Status: COMPLETED Source: [place] 1:07 PM [facility] [place] REPOSITORY HNO ID: [id number] Author: Zahra Wallace Service: Apheresis Author Type: [...] Completed by Apheresis Nurse: Devi Fernandes RN [facility] STAFF PHYSICIAN NOTE OF PERSONAL INVOLVEMENT IN [...] MD October 18, 2017 3:10 PM Pager: [phone] PROGRESS Observed: 10/18/2017 Status: COMPLETED Source: [place] 12:55 PM [facility] REPOSITORY HNO ID: [id number] Author: Stephane Austin Service: Critical Care Author Type: Physician Type: Progress Notes Filed: 10/18/2017 9:21 PM Note Text: MICU PROGRESS NOTE WITH COORD CARE Primary Service: [address] Team SERVICE DATE: 10/18/2017 SERVICE TIME: 0700 [...] bilateral iliac stents and IVC endograft, on shelter AC with warfarin, plasmapharesis q2 weeks, prednisone [...] has Hx of HIT Dx 2013 by - Last plasmapharesis 10/05/17: was due for [...] BP Min: 141/67 Max: 180/78 Pain Score: 710 Vital signs reviewed. NET FLUID BALANCE Intake/Output [...] 18, 2017 TIME: 12:55 PM PAGER/CONTACT #: [phone] [facility] STAFF PHYSICIAN NOTE OF PERSONAL INVOLVEMENT IN [...] bilateral iliac stents and IVC endograft, on shelter AC with warfarin, plasmapharesis q2 weeks, prednisone [...] bilateral iliac stents and IVC endograft, on shelter AC with 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 SIGNATURE: Stephane Austin MD [facility] PAGER:[phone] DATE of SERVICE: October 18, 2017 TIME of SERVICE: 9:21 PM CBC Collected: 10/18/2017 Status: F Source: [place] 11:47 AM [facility] REPOSITORY TYPE CODE TESTS RESULT OUT OF [...] By: #### CBC #### [facility] [address] [place], [place] [address] CNOVSP Observed: 10/18/2017 Status: COMPLETED Source: [place] 10:00 AM [facility] REPOSITORY Visit (SP) Office ([facility]) PALOMA CANNON ([id number]) 1990 F [facility] Date Time Provider Department 10/18/17 10:00 AM [facility]IN [facility] During your visit today, we recorded the following information about you: Carmita Verdin RN, RN 10/18/2017 3:18 PM Signed Opened in error.Carmita Verdin RN Referring Provider: LISSETH CLAUDIO [[id number]] Allergies As of Date: 10/18/2017 Noted Allergy [...] Fully Assessed Primary Visit Diagnosis:APS (antiphospholipid syndrome) ([facility]) [D68.61] Prescriptions as of 10/18/2017 Sig: [...] CONSULT PROG Observed: 10/18/2017 Status: COMPLETED Source: [place] 9:32 AM [facility] REPOSITORY HNO ID: [id number] Author: Dominique Rios Service: Hematology/Oncology Author Type: [...] Lymph 1.00 - 4.00 k/uL 0.04 (L) Hughes% % 3.9 Abs Hughes <0.87 k/uL 0.30 Eosin% % 0.0 Abs [...] MD Fellow, Hematology and Medical Oncology Pager: [phone] [facility] STAFF PHYSICIAN NOTE OF PERSONAL INVOLVEMENT IN [...] with questions. SIGNATURE: Dominique Rios DO PAGER: [phone] DATE of SERVICE: October 18, 2017 TIME of SERVICE: 6:15 PM CBC Collected: 10/18/2017 Status: F Source: [place] 12:29 AM [facility] REPOSITORY TYPE CODE TESTS RESULT OUT OF [...] CMP, MG1, PHOS #### [facility] [address] [place], [place] [address] PROTIME Collected: 10/18/2017 Status: F Source: [place] 12:29 AM [facility] REPOSITORY TYPE CODE TESTS RESULT OUT OF RANGE REFERENCE UNITS LAB PSEC 9.7-13.0 sec PT Sec 11.5 LAB INR 0.9-1.3 PT INR 1.1 Result Comment: Vitamin K Antagonist (VKA) Therapeutic Range: INR 2 to 3 (Target INR of 2.5) Note: For patients treated with VKA drugs, such as warfarin, the [employer]icians 2012 Guideline recommends [...] Chest 2012, 141:7S-47S Diogenes RA, et al. [facility] 2017, 70: 252-289 Performed By: #### CBC, PT, CMP, MG1, PHOS #### [facility] [address] [place], [place] [address] COMP METABOLIC PANEL Collected: 10/18/2017 Status: F Source: [place] 12:29 AM [facility] [place] REPOSITORY TYPE CODE TESTS RESULT OUT OF REFERENCE UNITS RANGE LAB TP 6.3-8.0 g/dL Low Protein, Total 5.7 LAB ALB 3.9-4.9 g/dL Albumin 3.9 LAB CA 8.5-10.2 mg/dL Calcium, Total 8.5 LAB TBIL 0.2-1.3 mg/dL Bilirubin, Total 0.6 LAB ALKP 32-117 U/L Alkaline Phosphatase 44 LAB AST 13-35 U/L Low AST 12 LAB GLU 74-99 mg/dL Glucose High 143 Result Comment: The [place] Diabetes Association (ADA) provides guidance for cutoff [...] Standards of Medical Care in Diabetes 2016, [place]. Diabetes Care. 2016.39(Suppl 1). LAB [...] CMP, MG1, PHOS #### [facility] [address] [place] [address] MAGNESIUM Collected: 10/18/2017 Status: F Source: [place] 12:29 AM [facility] REPOSITORY TYPE CODE TESTS RESULT OUT OF REFERENCE UNITS RANGE LAB MG 1.7-2.3 mg/dL High Magnesium 2.5 Performed By: #### CBC, PT, CMP, MG1, PHOS #### [facility] [address] [place] [address] PHOSPHORUS Collected: 10/18/2017 Status: F Source: [place] 12:29 AM [facility] REPOSITORY TYPE CODE TESTS RESULT OUT OF REFERENCE UNITS RANGE LAB PHOS 2.7-4.8 mg/dL Phosphorus 4.5 Performed By: #### CBC, PT, CMP, MG1, PHOS #### [facility] [address] [place] [address] PLAN OF CARE Observed: 10/17/2017 Status: COMPLETED Source: [place] 6:06 PM [facility] [place] REPOSITORY HNO ID: [id number] Author: Aline Leblanc (Pharmacist) Service: Pharmacy Author [...] medication history: Yes Reconciliation completed? Yes All STAFF INTERNIST OFFICE BASED ONLY medications addressed by LIP Additional comments: Held medication: Warfarin 2.5 mg tablet Active Medications STAFF INTERNIST OFFICE BASED ONLY: Amlodipine 5 m tabs po daily, hold [...] See Comments Elevated cardiac enzymes Preferred Pharmacy: [facility] [address] [place], [place] [address] [address] [facility] - [phone] Current STAFF INTERNIST OFFICE BASED ONLY Medications: Prior to Admission medications as of [...] needed. Unknown at Unknown time Jcarlos Rand ([employer]alegal) October 17, 2017 6:07 PM ALINE LEBLANC, PHARMACIST October 19, 2017 12:15 PM CASE MANAGEM Observed: 10/17/2017 Status: COMPLETED Source: [place] 11:41 AM [facility] REPOSITORY HNO ID: [id number] Author: Radha SanchezRn) Jayy RN Service: Case Management Author Type: Registered Nurse Type: Care Mgt Progress Note Filed: 10/17/2017 11:41 AM Note Text: CARE MANAGEMENT PROGRESS NOTE SERVICE DATE: 10/17/2017 SERVICE TIME: 11:41 AM LOS: 4 days Needs Prior to Discharge: To Be Determined Anticipate transfer to [facility]. D/C needs and date TBD. SIGNATURE: Radha Hope RN PATIENT NAME: Paloma Cannon DATE: October 17, 2017 TIME: 11:41 AM PAGER/CONTACT #: [phone] NUTRITION Observed: 10/17/2017 Status: COMPLETED Source: [place] 11:35 AM [facility] REPOSITORY HNO ID: [id number] Author: Edel Guillen Service: NST-Nutrition Support Team [...] 15 oz) 10/18/2016 114.306 kg 44.64 ? [place] body weight 52.3 kg Dosing Weight: 101 kg Estimated kilocalorie needs: 1804-2509 kilocalories determined by 11-14 kcal/kg Estimated protein needs: 78-105 grams determined by 1.5-2.0 g/kg [place] weight Estimated fluid needs: per MD NUTRITION [...] No functional impairment, normal with no limitations STAFF INTERNIST OFFICE BASED ONLY per pt Temperature Max in 24 hours: [...] 2 units SIGNATURE: Edel Guillen RD, LD, [facility] PATIENT NAME: Paloma Cannon DATE: October 17, 2017 TIME: 8:15 AM PAGER: [phone] XR CHEST 1V FRONTAL Observed: 10/17/2017 Status: F Source: [facility] 11:19 AM [facility] REPOSITORY * * *Final Report* [...] silhouette: The cardiomediastinal silhouette is unchanged. Other: Pie Topper: MURTAZA Transcribe Date/Time: Oct 17 2017 12:25P Dictated by : DANNY COSTA MD This examination was interpreted and the report reviewed and electronically signed by: DANNY COSTA MD on Oct 17 2017 12:26PM EST [id number] CK, TOTAL AND CKMB Collected: 10/17/2017 Status: F Source: [place] 10:42 [facility] REPOSITORY TYPE CODE TESTS RESULT OUT [...] #### CKCKMB, AMINAH #### [facility] [address], [place] [address] TROPONIN T Collected: 10/17/2017 Status: F Source: [place] 10:42 [facility] REPOSITORY TYPE CODE TESTS RESULT OUT OF REFERENCE UNITS RANGE LAB TROPT 0.000-0.029 ng/mL Troponin T <0.010 Performed By: #### CKCKMB, AMINAH #### [facility] [address] [place], [place] [address] CONSULT PROG Observed: 10/17/2017 Status: COMPLETED Source: [place] 10:27 AM [facility] REPOSITORY HNO ID: [id number] Author: Dominique Rios Service: Hematology/Oncology Author Type: [...] - 4.00 k/uL 0.07 (L) 0.04 (L) Hughes% % 5.2 3.9 Abs Hughes <0.87 k/uL 0.30 0.30 Eosin% % 0.0 [...] MD Fellow, Hematology and Medical Oncology Pager: [phone] [facility] STAFF PHYSICIAN NOTE OF PERSONAL INVOLVEMENT IN [...] service today. SIGNATURE: Dominique Rios DO PAGER: [phone] DATE of SERVICE: October 17, 2017 TIME of SERVICE: 7:51 PM 12 LEAD ELECTROCARDIOGRAM Observed: 10/17/2017 Status: F Source: [place] 8:19 AM [facility] REPOSITORY [facility] Cardiovascular Services [address] [place] [address] 12 Lead EKG 10/13/17 1016 MR#: [id number] Acct: [id number] Name: PALOMA CANNON Rep #: [id number] : 1990 27 From: Eddie Kwon MD [...] ECG Confirmed by EDDIE KWON MD ([id number]), video effects editor FARRUKH CHAVEZ ([id number]) on 10/17/2017 8:19:20 AM Referred By: Magdalena Lewis Confirmed By:EDDIE KWON MD 10/17/17 0819 Date Eddie Kwon MD CC: Peyton Rogers MD; Lydia Harley MD Signed PROGRESS Observed: 10/17/2017 Status: COMPLETED Source: [place] 7:06 AM [facility] REPOSITORY HNO ID: [id number] Author: Stephane Austin Service: Critical Care Author Type: Physician Type: Progress Notes Filed: 10/17/2017 5:17 PM Note Text: MICU PROGRESS NOTE WITH [facility] Primary Service: [address] Team SERVICE DATE: 10/17/2017 SERVICE TIME: 7:07 [...] 17, 2017 TIME: 7:06 AM PAGER/CONTACT #: [phone] [facility] [place] NOTE OF PERSONAL INVOLVEMENT IN [...] minutes. SIGNATURE: Stephane Austin MD [facility] PAGER:[phone] DATE of SERVICE: October 17, 2017 TIME of SERVICE: 5:17 PM CBC AND DIFFERENTIAL Collected: 10/16/2017 Status: F Source: [place] [address]:30 PM [facility] REPOSITORY TYPE CODE TESTS RESULT OUT OF [...] Abs Low Lymph 0.04 LAB AMONO % Hughes% 3.9 LAB AAMONO <0.87 k/uL Abs Hughes 0.30 LAB AEOS % Eosin% 0.0 LAB AAEOS <0.46 k/uL Abs Eosin <0.03 LAB ABASO % Baso% 0.1 LAB AABASO <0.11 k/uL Abs Baso <0.03 LAB AUNRBC 0 /100 WBC NRBCs High 0.4 LAB ABNRBC <0.01 k/uL High Absolute nRBC 0.03 LAB DTYP DTYPE Auto Diff Performed By: #### CBCDIF, PT, CMP, MG1, PHOS #### [facility] [address] [place] [address] PROTIME Collected: 10/16/2017 Status: F Source: [place] 11:30 PM [facility] REPOSITORY TYPE CODE TESTS RESULT OUT OF RANGE REFERENCE UNITS LAB PSEC 9.7-13.0 sec PT Sec 11.4 LAB INR 0.9-1.3 PT INR 1.1 Result Comment: Vitamin K Antagonist (VKA) Therapeutic Range: INR 2 to 3 (Target INR of 2.5) Note: For patients treated with VKA drugs, such as warfarin, the [place] [employer] 2012 Guideline recommends [...] Chest 2012, 141:7S-47S Diogenes RA, et al. [facility] 2017, 70: 252-289 Performed By: #### CBCDIF, PT, CMP, MG1, PHOS #### [facility] [address] [place], [place] [address] COMP METABOLIC PANEL Collected: 10/16/2017 Status: F Source: [place] 11:30 PM [facility] REPOSITORY TYPE CODE TESTS RESULT OUT OF REFERENCE UNITS RANGE LAB TP 6.3-8.0 g/dL Low Protein, Total 6.1 LAB ALB 3.9-4.9 g/dL Low Albumin 3.8 LAB CA 8.5-10.2 mg/dL Calcium, Total 9.0 LAB TBIL 0.2-1.3 mg/dL Bilirubin, Total 0.7 LAB ALKP 32-117 U/L Alkaline Phosphatase 48 LAB AST 13-35 U/L AST 14 LAB GLU 74-99 mg/dL Glucose High 138 Result Comment: The [place] [employer] (ADA) provides guidance for cutoff [...] Standards of Medical Care in Diabetes 2016, [place]. Diabetes Care. 2016.39(Suppl 1). LAB [...] CMP, MG1, PHOS #### [facility] [address] [place] [address] MAGNESIUM Collected: 10/16/2017 Status: F Source: [place] 11:30 PM [facility] REPOSITORY TYPE CODE TESTS RESULT OUT OF REFERENCE UNITS RANGE LAB MG 1.7-2.3 mg/dL High Magnesium 2.5 Performed By: #### CBCDIF, PT, CMP, MG1, PHOS #### [facility] [address] [place] [address] PHOSPHORUS Collected: 10/16/2017 Status: F Source: [place] 11:30 PM [facility] REPOSITORY TYPE CODE TESTS RESULT OUT OF REFERENCE UNITS RANGE LAB PHOS 2.7-4.8 mg/dL High Phosphorus 4.9 Performed By: #### CBCDIF, PT, CMP, MG1, PHOS #### [facility] [address], [place] [address] FONDAPARINUX ASSAY Collected: 10/16/2017 Status: F Source: [place] 3:00 PM [facility] REPOSITORY TYPE CODE TESTS RESULT OUT OF [...] (body weight >100 kg) once daily, the sqyw-ndmbmi-otwzaysa doses provide similar mean steady-state peaks and minimum plasma concentrations across all body weight categories. The mean peak steady-state plasma concentration is in the range of 1.20 to 1.26 mg/L. In these patients, the mean minimum steady-state plasma concentration is in the range of 0.46 to 0.62 mg/L. (Prescribing information for Arixtra from [employer], April 2010) Note: The fondaparinux assay is performed by an anti-Xa methodology and that comcomitant therapy with unfractionated or low molecular weight heparin could falsely elevate the fondaparinux levels. Performed By: #### FONDXA #### [facility] [address] [place], [place] [address] CASE MANAGEM Observed: 10/16/2017 Status: COMPLETED Source: [place] 2:57 PM [facility] REPOSITORY HNO ID: [id number] Author: Radha SanchezRn) JEFF Hope Service: Case [...] 16, 2017 TIME: 2:57 PM PAGER/CONTACT #: [phone] CBC Collected: 10/16/2017 Status: F Source: [place] 12:46 PM [facility] REPOSITORY TYPE CODE TESTS RESULT OUT OF [...] By: #### CBC #### [facility] [address] [place], [place] [address] CONSULT PROG Observed: 10/16/2017 Status: COMPLETED Source: [place] 10:43 AM [facility] REPOSITORY HNO ID: [id number] Author: Dominique Rios Service: Hematology/Oncology Author Type: [...] not displayed. Recent Labs 10/15/17230910/14/17 2235 10/13/17 2315 10/13/17 1342 10/13/17 1300 NA 134* 135* 137 [...] 0.4 0.5 1.2 -- 0.6 Recent Labs 10/15/17 2310 10/14/17 2235 10/13/17 2315 10/13/17 1846 10/13/17 [...] MD Fellow, Hematology and Medical Oncology Pager: [phone] [facility] [place] NOTE OF PERSONAL INVOLVEMENT IN [...] with you. SIGNATURE: Dominique Rios DO PAGER: [phone] DATE of SERVICE: October 16, 2017 TIME of SERVICE: 7:15 PM PROCEDURE Observed: 10/16/2017 Status: COMPLETED Source: [place] [address]:21 AM [facility] REPOSITORY HNO ID: [id number] Author: Lisseth Claudio MD Service: Apheresis Author [...] Completed by Apheresis Nurse: Lou Juarez RN [facility] [place] NOTE OF PERSONAL INVOLVEMENT IN [...] MD October 16, 2017 3:10 PM Pager: [phone] PROGRESS Observed: 10/16/2017 Status: COMPLETED Source: [place] 6:45 AM [facility] REPOSITORY O ID: [id number] Author: Stephane Austin Service: Critical Care Author Type: Physician Type: Progress Notes Filed: 10/16/2017 3:53 PM Note Text: MICU PROGRESS NOTE WITH [facility] Primary Service: [address] Team SERVICE DATE: 10/16/2017 SERVICE TIME: 6:46 [...] bilateral iliac stents and IVC endograft, on shelter AC with warfarin, plasmapharesis q2 weeks, prednisone [...] bilateral iliac stents and IVC endograft, on shelter AC with warfarin, plasmapharesis q2 weeks, prednisone [...] 16, 2017 TIME: 6:46 AM PAGER/CONTACT #: [phone] [facility] [place] NOTE OF PERSONAL INVOLVEMENT IN [...] bilateral iliac stents and IVC endograft, on shelter AC with warfarin, plasmapharesis q2 weeks, prednisone [...] bilateral iliac stents and IVC endograft, on shelter AC with 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 SIGNATURE: Stephane Austin MD [facility] PAGER:[phone] DATE of SERVICE: October 16, 2017 TIME of SERVICE: 3:52 PM CBC Collected: 10/16/2017 Status: F Source: [place] 5:45 AM [facility] REPOSITORY TYPE CODE TESTS RESULT OUT OF [...] By: #### CBC #### [facility] [address] [place], [place] [address] PROTIME Collected: 10/15/2017 Status: F Source: [place] 11:10 PM [facility] REPOSITORY TYPE CODE TESTS RESULT OUT OF RANGE REFERENCE UNITS LAB PSEC 9.7-13.0 sec High PT Sec 14.0 LAB INR 0.9-1.3 High PT INR 1.4 Result Comment: Vitamin K Antagonist (VKA) Therapeutic Range: INR 2 to 3 (Target INR of 2.5) Note: For patients treated with VKA drugs, such as warfarin, the [place] 2012 Guideline recommends [...] Chest 2012, 141:7S-47S Diogenes RA, et al. [facility] 2017, 70: 252-289 Performed By: #### PT, CBCDIF, CMP, MG1, PHOS #### [facility] [address] [place], [place] [address] CBC AND DIFFERENTIAL Collected: 10/15/2017 Status: F Source: [place] 11:10 PM [facility] REPOSITORY TYPE CODE TESTS RESULT OUT OF [...] Abs Low Lymph 0.07 LAB AMONO % Hughes% 5.2 LAB AAMONO <0.87 k/uL Abs Hughes 0.30 LAB AEOS % Eosin% 0.0 LAB AAEOS <0.46 k/uL Abs Eosin <0.03 LAB ABASO % Baso% 0.0 LAB AABASO <0.11 k/uL Abs Baso <0.03 LAB AUNRBC 0 /100 WBC NRBCs High 0.5 LAB ABNRBC <0.01 k/uL High Absolute nRBC 0.03 LAB DTYP DTYPE Auto Diff Performed By: #### PT, CBCDIF, CMP, MG1, PHOS #### [facility] [address] [place], [place] [address] COMP METABOLIC PANEL Collected: 10/15/2017 Status: F Source: [place] 11:10 PM [facility] [place] REPOSITORY TYPE CODE TESTS RESULT OUT OF REFERENCE UNITS RANGE LAB TP 6.3-8.0 g/dL Low Protein, Total 5.7 LAB ALB 3.9-4.9 g/dL Low Albumin 3.6 LAB CA 8.5-10.2 mg/dL Calcium, Total 8.8 LAB TBIL 0.2-1.3 mg/dL Bilirubin, Total 0.4 LAB ALKP 32-117 U/L Alkaline Phosphatase 55 LAB AST 13-35 U/L AST 13 LAB GLU 74-99 mg/dL Glucose High 132 Result Comment: The [place] Diabetes [employer] (ADA) provides guidance for cutoff [...] Standards of Medical Care in Diabetes 2016, [place]. Diabetes Care. 2016.39(Suppl 1). LAB [...] CMP, MG1, PHOS #### [facility] [address] [place] [address] MAGNESIUM Collected: 10/15/2017 Status: F Source: [place] 11:10 PM [facility] REPOSITORY TYPE CODE TESTS RESULT OUT OF REFERENCE UNITS RANGE LAB MG 1.7-2.3 mg/dL High Magnesium 2.6 Performed By: #### PT, CBCDIF, CMP, MG1, PHOS #### [facility] [address] [place] [address] PHOSPHORUS Collected: 10/15/2017 Status: F Source: [place] 11:10 PM [facility] REPOSITORY TYPE CODE TESTS RESULT OUT OF REFERENCE UNITS RANGE LAB PHOS 2.7-4.8 mg/dL High Phosphorus 6.5 Performed By: #### PT, CBCDIF, CMP, MG1, PHOS #### [facility] [address] [place], [place] [address] CBC Collected: 10/15/2017 Status: F Source: [place] 6:42 PM [facility] REPOSITORY TYPE CODE TESTS RESULT OUT OF [...] Absolute nRBC Performed By: #### CBC #### [place] [address] [place] [address] PT MIXING STUDY Collected: 10/15/2017 Status: F Source: [place] 6:42 [facility] REPOSITORY TYPE CODE TESTS RESULT OUT [...] By: #### PTMIX #### [facility] [address] [place], [place] [address] CONSULT PROG Observed: 10/15/2017 Status: COMPLETED Source: [place] 1:58 PM [facility] REPOSITORY HNO ID: [id number] Author: Dominique Rios Service: Hematology Author Type: [...] MD Fellow, Hematology and Medical Oncology Pager: [phone] [facility] [place] NOTE OF PERSONAL INVOLVEMENT IN [...] with questions. SIGNATURE: Dominique Rios DO PAGER: [phone] DATE of SERVICE: October 15, 2017 TIME of SERVICE: 2:08 PM URINALYSIS Collected: 10/15/2017 Status: F Source: [place] 12:23 PM [facility] REPOSITORY TYPE CODE TESTS RESULT OUT OF RANGE REFERENCE UNITS LAB UCOL Yellow Color Yellow LAB [facility] Clear Clarity Abnormal Cloudy Alert LAB UGLUC Negative mg/dL Glucose, Urine Negative LAB UBIL Negative Bilirubin, Urine Negative LAB UKET Negative Ketones, Urine Negative LAB US[facility] 1.005-1.030 Specific [place], Ur 1.019 LAB UHGB Negative Abnormal Hemoglobin/Blood, [...] UCRR, UUNR, UNAR #### [facility] [address], [place] [address] CREATININE,URINE,RAN Collected: Status: F Source: [place] 10/15/2017 12:23 PM [facility] REPOSITORY TYPE CODE TESTS RESULT OUT OF RANGE REFERENCE UNITS LAB UCRR 20-300 mg/dL 71.1 Creatinine,U rine,Ran Performed By: #### UA, UCRR, UUNR, UNAR #### [facility] [address] [place] [address] UREA NITROGEN,UR,RAN Collected: 10/15/2017 Status: F Source: [place] 12:23 PM [facility] REPOSITORY TYPE CODE TESTS RESULT OUT OF RANGE REFERENCE UNITS LAB UUNR 140-1500 mg/dL Urea 630 Nitrogen,Ur, Ran Performed By: #### UA, UCRR, UUNR, UNAR #### [facility] [address] [place] [address] SODIUM,URINE,RANDOM Collected: Status: F Source: [place] 10/15/2017 12:23 PM [facility] REPOSITORY TYPE CODE TESTS RESULT OUT OF RANGE REFERENCE UNITS LAB UNAR 14-216 mmol/L <20 Sodium,Urine ,Random Performed By: #### UA, UCRR, UUNR, UNAR #### [facility] [address] [place] [address] CBC Collected: 10/15/2017 Status: F Source: [place] 12:23 PM [facility] REPOSITORY TYPE CODE TESTS RESULT OUT OF [...] By: #### CBC #### 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 Other: Cholecystectomy clips again noted. Pie Topper: PSCB Transcribe Date/Time: Oct 15 2017 11:54A Dictated by : STELLA COSME MD This examination was interpreted and the report reviewed and electronically signed by: STELLA COSME MD on Oct 15 2017 11:55AM EST [id number] PROGRESS Observed: 10/15/2017 Status: COMPLETED Source: [place] 8:00 AM [facility] REPOSITORY HNO ID: [id number] Author: Kit Castro Service: Critical Care Author [...] showed no clot within the visualized veins Museum Director 35 (remains overall stable at this level [...] hemorrhage Antiphopholipid syndrome: + lupus anticoagulant, + [id number]-[id number], and + anti-cardiolipin antibodies 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 SIGNATURE: Kit Castro MD [facility] PAGER:[phone] CBC Collected: 10/15/2017 Status: F Source: [place] 5:40 AM [facility] REPOSITORY TYPE CODE TESTS RESULT OUT OF [...] By: #### CBC #### [facility] [address] [place], [place] [address] PROTIME Collected: 10/14/2017 Status: F Source: [place] 10:35 PM [facility] REPOSITORY TYPE CODE TESTS RESULT OUT OF RANGE REFERENCE UNITS LAB PSEC 9.7-13.0 sec High PT Sec 19.4 LAB INR 0.9-1.3 High PT INR 2.0 Result Comment: Vitamin K Antagonist (VKA) Therapeutic Range: INR 2 to 3 (Target INR of 2.5) Note: For patients treated with VKA drugs, such as warfarin, the [place] [employer] 2012 Guideline recommends [...] Chest 2012, 141:7S-47S Diogenes RA, et al. [facility] 2017, 70: 252-289 Performed By: #### PT, CBCDIF, CMP, MG1, PHOS #### [facility] [address] [place] [address] CBC AND DIFFERENTIAL Collected: 10/14/2017 Status: F Source: [place] 10:35 PM [facility] REPOSITORY TYPE CODE TESTS RESULT OUT OF [...] Abs Low Lymph 0.04 LAB AMONO % Hughes% 3.1 LAB AAMONO <0.87 k/uL Abs Hughes 0.13 LAB AEOS % Eosin% 0.0 LAB AAEOS <0.46 k/uL Abs Eosin <0.03 LAB ABASO % Baso% 0.0 LAB AABASO <0.11 k/uL Abs Baso <0.03 LAB AUNRBC 0 /100 WBC NRBCs High 1.2 LAB ABNRBC <0.01 k/uL High Absolute nRBC 0.05 LAB DTYP DTYPE Auto Diff Performed By: #### PT, CBCDIF, CMP, MG1, PHOS #### [facility] [address] [place], [place] [address] COMP METABOLIC PANEL Collected: 10/14/2017 Status: F Source: [place] 10:35 PM [facility] REPOSITORY TYPE CODE TESTS RESULT [...] mg/dL Glucose High 124 Result Comment: The [place] Diabetes Association (ADA) provides guidance for cutoff [...] Standards of Medical Care in Diabetes 2016, [place] [employer]. Diabetes Care. 2016.39(Suppl 1). LAB [...] CMP, MG1, PHOS #### [facility] [address] [place] [id number] MAGNESIUM Collected: 10/14/2017 Status: F Source: [place] 10:35 PM [facility] REPOSITORY TYPE CODE TESTS RESULT OUT OF REFERENCE UNITS RANGE LAB MG 1.7-2.3 mg/dL Magnesium 2.2 Performed By: #### PT, CBCDIF, CMP, MG1, PHOS #### [facility] [address] [place] [id number] PHOSPHORUS Collected: 10/14/2017 Status: F Source: [place] 10:35 PM [facility] REPOSITORY TYPE CODE TESTS RESULT OUT OF REFERENCE UNITS RANGE LAB PHOS 2.7-4.8 mg/dL High Phosphorus 6.9 Performed By: #### PT, CBCDIF, CMP, MG1, PHOS #### [facility] [address] [place], [place] [address] CBC Collected: 10/14/2017 Status: F Source: [place] 6:42 PM [facility] REPOSITORY TYPE CODE TESTS RESULT OUT OF [...] By: #### CBC #### [facility] [address] [place], [place] [address] GASA + ALL Collected: 10/14/2017 Status: F Source: [place] FOR 1:33 PM [facility] RADIANCE USE ONLY REPOSITORY TYPE CODE TESTS [...] Art Administration Result Comment: 30% LAB ACBDTE [id number] Notify Date, Art LAB ACBTME [id number] Notify Time, Art Performed By: #### ALLBG #### [facility] [address] [place], [place] [address] CBC Collected: 10/14/2017 Status: F Source: [place] 1:27 PM [facility] REPOSITORY TYPE CODE TESTS RESULT OUT OF [...] nRBC Performed By: #### CBC, AMINAH #### [facility] [address] [place], [place] [address] TROPONIN T Collected: 10/14/2017 Status: F Source: [place] 1:27 PM [facility] REPOSITORY TYPE CODE TESTS RESULT OUT OF REFERENCE UNITS RANGE LAB TROPT 0.000-0.029 ng/mL Troponin T 0.024 Performed By: #### CBC, AMINAH #### [facility] [address] [place] [id number] PROGRESS Observed: 10/14/2017 Status: COMPLETED Source: [place] 12:13 PM [facility] REPOSITORY HNO ID: [id number] Author: Kishore Emerson Service: Critical Care Author [...] bilateral iliac stents and IVC endograft, on shelter AC with warfarin, plasmapharesis q2 weeks, prednisone [...] bilateral iliac stents and IVC endograft, on shelter AC with warfarin, plasmapharesis q2 weeks, prednisone [...] 14, 2017 TIME: 12:13 PM PAGER/CONTACT #: [phone] NUTRITION Observed: 10/14/2017 Status: COMPLETED Source: [place] 10:33 AM [facility] REPOSITORY HNO ID: [id number] Author: Edel Guillen Service: NST-Nutrition Support Team [...] bilateral iliac stents and IVC endograft, on shelter AC with warfarin, plasmapharesis q2 weeks, prednisone [...] lb 15 oz) 10/18/2016 114.306 kg 44.64 [place] body weight 52.3 kg Dosing Weight: 101 kg Estimated kilocalorie needs: 4817-4350 kilocalories determined by 11-14 kcal/kg Estimated protein needs: 78-105 grams determined by 1.5-2.0 g/kg [place] weight Estimated fluid needs: per MD NUTRITION [...] 3 units SIGNATURE: Edel Guillen RD, LD, [facility] PATIENT NAME: Paloma Cannon DATE: October 14, 2017 TIME: 10:34 AM PAGER: [phone] XR CHEST 1V FRONTAL Observed: 10/14/2017 Status: F Source: [facility] 9:16 AM [facility] [place] REPOSITORY * * *Final Report* * * DATE OF EXAM: Oct 14 2017 9:16AM HALINA [id number] - XR CHEST 1V FRONTAL PORT / PROCEDURE REASON: ARDS (adult respiratory distress syndrome) ([facility]) * * * * Physician Interpretation * * * * EXAMINATION: CHEST RADIOGRAPH (PORTABLE SINGLE VIEW AP) Exam Date/Time: 10/14/2017 9:16 AM Indication: ARDS (adult respiratory distress syndrome) ([facility]) MQ: XCP_4 Comparison: 1 day prior RESULT: [...] pneumothorax. Cardiomediastinal silhouette: Stable cardiomediastinal silhouette. Other: Pie Topper: MURTAZA Transcribe Date/Time: Oct 14 2017 10:28A Dictated by : STELLA COSME MD This examination was interpreted and the report reviewed and electronically signed by: STELLA COSME MD on Oct 14 2017 10:29AM EST [id number] CONSULT PROG Observed: 10/14/2017 Status: COMPLETED Source: [place] 8:57 AM [facility] REPOSITORY HNO ID: [id number] Author: Dominique Rios Service: Hematology/Oncology Author Type: Physician Type: Consult Progress Note Filed: 10/14/2017 5:02 PM Note Text: ? [facility] DEPARTMENT OF HEMATOLOGIC ONCOLOGY AND BLOOD DISORDERS ? Hematology Consult Follow Up ? ? Patient name: Paloma Cannon : 1990 Date of Service: 10/14/2017 Supervising attending physician: Dr. Castro ? DIAGNOSIS: Antiphospholipid Antibody Syndrome ? ? INTERVAL HISTORY: Intubated and paralyzed. CXR looks much better today. Current hospital medications: sulfamethoxazole-trimethoprim 800-160 mg 1 tablet (BACTRIM DS,SEPTRA DS) 1 tablet ORAL MO-WE-FR potassium chloride ER 40 mEq tab(s) (K-DUR, [...] Lymph 1.00 - 4.00 k/uL 0.11 (L) Hughes% % 0.9 Abs Hughes <0.87 k/uL 0.11 Eosin% % 0.2 Abs [...] MD Fellow, Hematology and Medical Oncology Pager: [phone] ? [facility] [place] NOTE OF PERSONAL INVOLVEMENT IN [...] with questions. SIGNATURE: Dominique Rios DO PAGER: [phone] DATE of SERVICE: October 14, 2017 TIME of SERVICE: 5:02 PM PROGRESS Observed: 10/14/2017 Status: COMPLETED Source: [place] 7:58 AM [facility] REPOSITORY HNO ID: [id number] Author: Kit Castro Service: Critical Care Author [...] ventricular systolic function C3 C4 mildly decreased Museum Director 36 today (vs. 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 SIGNATURE: Kit Castro MD [facility] PAGER:[phone] CONSULTATION Observed: 10/14/2017 Status: F Source: [place] 5:34 AM [facility] REPOSITORY [facility] Medical Records Department [address] [place] [address] Consultation 10/13/17 1113 MR#: [id number] Acct: [id number] Name: DAVISPALOMA M Rep #: [id number] : 1990 27 From: Mitch Buchanan MD [...] syndrome and was recently discharged from the [facility] following plasmapheresis. Patient reportedly has to receive her care at [facility] or [facility]. ER has called for transportation, but no [...] placement Psychiatric History: No pertinent psych hx FRUIT THINNER History: No pertinent FRUIT THINNER history Smoking Status: Never smoker - *Family [...] with plasmapheresis. There is no plasmapheresis available [facility]. ER is currently arranging for transportation [...] long-term issues. Patient was recently admitted at [facility] with a similar type presentation. Would avoid [...] Signed CBC Collected: 10/14/2017 Status: F Source: [place] 4:19 AM [facility] [place] REPOSITORY TYPE CODE TESTS RESULT OUT OF [...] nRBC Performed By: #### CBC, AMINAH #### [facility] [address] [place], [place] [address] TROPONIN T Collected: 10/14/2017 Status: F Source: [place] 4:19 AM [facility] REPOSITORY TYPE CODE TESTS RESULT OUT OF REFERENCE UNITS RANGE LAB TROPT 0.000-0.029 ng/mL Troponin T 0.028 Performed By: #### CBC, AMINAH #### [facility] [address] [place], [place] [address] GASA + ALL Collected: 10/14/2017 Status: F Source: [place] FOR 12:31 AM [facility] RADIANCE USE ONLY REPOSITORY TYPE CODE TESTS [...] By: #### ALLBG #### [facility] [address] [place], [place] [address] PROTIME Collected: 10/13/2017 Status: F Source: [place] 11:15 PM [facility] REPOSITORY TYPE CODE TESTS RESULT OUT OF RANGE REFERENCE UNITS LAB PSEC 9.7-13.0 sec High PT Sec 16.7 LAB INR 0.9-1.3 High PT INR 1.7 Result Comment: Vitamin K Antagonist (VKA) Therapeutic Range: INR 2 to 3 (Target INR of 2.5) Note: For patients treated with VKA drugs, such as warfarin, the [employer] 2012 Guideline recommends [...] Chest 2012, 141:7S-47S Diogenes RESENDIZ, et al. [facility] 2017, 70: 252-289 Performed By: #### PT, CMP, MG1, NTBNP, PHOS, CBCDIF #### [facility] [address] [place], [place] [address] COMP METABOLIC PANEL Collected: 10/13/2017 Status: F Source: [place] 11:15 PM [facility] REPOSITORY TYPE CODE TESTS RESULT OUT OF REFERENCE UNITS RANGE LAB TP 6.3-8.0 g/dL Low Protein, Total 5.7 LAB ALB 3.9-4.9 g/dL Low Albumin 3.6 LAB CA 8.5-10.2 mg/dL Low Calcium, Total 8.3 LAB TBIL 0.2-1.3 mg/dL Bilirubin, Total 1.2 LAB ALKP 32-117 U/L Alkaline Phosphatase 85 LAB AST 13-35 U/L AST 22 LAB GLU 74-99 mg/dL Glucose High 120 Result Comment: The [place] Diabetes Association (ADA) provides guidance for cutoff [...] Standards of Medical Care in Diabetes 2016, [place] [employer]. Diabetes Care. 2016.39(Suppl 1). LAB [...] NTBNP, PHOS, CBCDIF #### [facility] [address] [place] [address] MAGNESIUM Collected: 10/13/2017 Status: F Source: [place] 11:15 PM [facility] REPOSITORY TYPE CODE TESTS RESULT OUT OF REFERENCE UNITS RANGE LAB MG 1.7-2.3 mg/dL Magnesium 2.0 Performed By: #### PT, CMP, MG1, NTBNP, PHOS, CBCDIF #### [facility] [address] [place], [place] [id number] NT PRO BNP Collected: 10/13/2017 Status: F Source: [place] 11:15 PM [facility] REPOSITORY TYPE CODE TESTS RESULT OUT OF REFERENCE UNITS RANGE LAB PBNP <125 pg/mL High PRO B Natr 75[address] Peptide Performed By: #### PT, CMP, MG1, NTBNP, PHOS, CBCDIF #### [facility] [address] [place], [place] [address] PHOSPHORUS Collected: 10/13/2017 Status: F Source: [place] 11:15 PM [facility] REPOSITORY TYPE CODE TESTS RESULT OUT OF REFERENCE UNITS RANGE LAB PHOS 2.7-4.8 mg/dL High Phosphorus 5.6 Performed By: #### PT, CMP, MG1, NTBNP, PHOS, CBCDIF #### [facility] [address] [place], [place] [address] CBC AND DIFFERENTIAL Collected: 10/13/2017 Status: F Source: [place] 11:15 PM [facility] REPOSITORY TYPE CODE TESTS RESULT OUT OF [...] Abs Low Lymph 0.11 LAB AMONO % Hughes% 0.9 LAB AAMONO <0.87 k/uL Abs Hughes 0.11 LAB AEOS % Eosin% 0.2 LAB AAEOS <0.46 k/uL Abs Eosin <0.03 LAB ABASO % Baso% 0.3 LAB AABASO <0.11 k/uL Abs Baso 0.03 LAB AUNRBC 0 /100 WBC NRBCs High 0.2 LAB ABNRBC <0.01 k/uL High Absolute nRBC 0.02 LAB DTYP DTYPE Auto Diff Performed By: #### PT, CMP, MG1, NTBNP, PHOS, CBCDIF #### [facility] [address] [place] [address] TROPONIN T Collected: 10/13/2017 Status: F Source: [place] 9:00 PM [facility] [place] REPOSITORY TYPE CODE TESTS RESULT OUT OF REFERENCE UNITS RANGE LAB TROPT 0.000-0.029 ng/mL High Troponin T 0.034 Result Comment: Called to and read back by: Bessy De Paz G61 10/13/17 21:58 Steffen Performed By: #### AMINAH #### [address] [address] URINALYSIS Collected: 10/13/2017 Status: F Source: [place] 6:46 PM [facility] REPOSITORY TYPE CODE TESTS RESULT OUT OF RANGE REFERENCE UNITS LAB UCOL Yellow Abnormal Alert Color Red Result Comment: Less Than 2 CC Received LAB [facility] Clear Abnormal Alert Clarity Cloudy LAB UGLUC Negative mg/dL Glucose, Urine Negative LAB UBIL Negative Abnormal 1+ Alert Bilirubin, Urine Result Comment: Suggest correlation with clinical findings and serum bilirubin if clinically indicated. LAB UKET Negative Ketones, Urine Negative LAB USPG 1.005-1.030 High Specific [place], Ur >1.030 LAB UHGB Negative Abnormal 3+ Alert Hemoglobin/Blood,U r LAB UPH 4.5-8.0 pH 6.0 LAB UPROT Negative mg/dL Abnormal Protein, Urine Alert >=300 LAB UUROB Normal Urobilinogen Normal LAB UNITR Negative Abnormal Nitrites Alert Positive LAB ULKEST Negative Abnormal Leukest 2+ Alert Performed By: #### UA, PT, CBC, UAMIC #### [place] [address] [place], [place] [address] PROTIME Collected: 10/13/2017 Status: F Source: [place] 6:46 PM [facility] REPOSITORY TYPE CODE TESTS RESULT OUT OF RANGE REFERENCE UNITS LAB PSEC 9.7-13.0 sec High PT Sec 16.8 LAB INR 0.9-1.3 High PT INR 1.7 Result Comment: Vitamin K Antagonist (VKA) Therapeutic Range: INR 2 to 3 (Target INR of 2.5) Note: For patients treated with VKA drugs, such as warfarin, the [employer] 2012 Guideline recommends [...] Chest 2012, 141:7S-47S Diogenes RESENDIZ, et al. [facility] 2017, 70: 252-289 Performed By: #### UA, PT, CBC, UAMIC #### [facility] [address] [place], [place] [address] CBC Collected: 10/13/2017 Status: F Source: [place] 6:46 PM [facility] [place] REPOSITORY TYPE CODE TESTS RESULT OUT OF [...] PT, CBC, UAMIC #### [facility] [address] [place], [place] [address] URINE MICROSCOPIC (FOR Collected: 10/13/2017 Status: F Source: [place] LAB USE ONLY) 6:46 PM [facility] REPOSITORY TYPE CODE TESTS RESULT OUT OF RANGE REFERENCE UNITS LAB UWBC 0-5 /HPF Abnormal Alert WBC 6-10 LAB URBC 0-3 /HPF Abnormal Alert RBC >25 LAB UCAST 0 /LPF Cast SEE COMMENT Result Comment: 0 LAB UEPI /HPF Epithelial SEE Cells COMMENT Result Comment: Squamous Epithelial Cells Few Non-Squamous Epithelial Cells Performed By: #### UA, PT, CBC, UAMIC #### [facility] [address], [place] [address] GASA + ALL Collected: 10/13/2017 Status: F Source: [facility] 5:08 PM [facility] RADIANCE USE ONLY REPOSITORY TYPE CODE TESTS [...] By: #### ALLBG #### [facility] [address] [place], [place] [address] Observed: 10/13/2017 Status: F Source: [place] S PNEUMO AG DETECT 4:57 PM [facility] REPOSITORY Test Result - Negative for S.pneumoniae antigen. Presumptive negative for pneumococcal pneumonia, suggesting no current or recent pneumococcal infection. Infection due to S.pneumoniae cannot be ruled out since the antigen present in the sample may be below the detection limit of the test. Performed By: #### SPNAG #### [facility] [address] [place], [place] [address] LEGIONELLA URINE AG Collected: 10/13/2017 Status: F Source: [place] 4:57 PM [facility] REPOSITORY TYPE CODE TESTS RESULT OUT OF REFERENCE UNITS RANGE LAB LEGUAG Negative Legionella Urine Negative Ag Result Comment: Negative for L. pneumophila serogroup 1 antigen in urine, suggesting no recent or current infection. Legionnaires disease cannot be ruled out since other serogroups and species may also cause disease. Performed By: #### LEGUAG #### [facility] [address] [place], [place] [address] CONSULT Observed: 10/13/2017 Status: COMPLETED Source: [place] 4:39 PM [facility] REPOSITORY HNO ID: [id number] Author: Dominique Rios Service: Hematology/Oncology Author Type: Physician Type: Consults Filed: 10/13/2017 7:19 PM Note Text: [facility] Initial Consult Note [id number] ATTENDING PHYSICIAN: Dr. Castro DATE OF SERVICE: 10/13/2017 Room/Bed: G061 006/G061-06 REASON FOR CONSULT: Antiphospholipid syndrome Consulting PHYSICIAN: [...] MD Fellow, Hematology and Medical Oncology Pager: [phone] HPI: This is a 27 y/o female [...] further management of alveolar hemorrhage. Presented to [facility] ED with hemoptysis/SOB - found to be [...] at 10/13/17 1639 Last data filed at 04/06/18 1400 Gross per 24 hour Intake 0 [...] Lymph 1.00 - 4.00 k/uL 0.31 (L) Hughes% % 1.7 Abs Hughes <0.87 k/uL 0.20 Eosin% % 2.6 Abs Eosin <0.46 k/uL 0.31 Baso% % 0.0 Abs Baso <0.11 k/uL 0.00 ANC(includeSEG+BAND) k/uL [place]% % Myelo% % 0.9 Anisocytosis Present Left [...] MD Fellow, Hematology and Medical Oncology Pager: [phone] [facility] ST[facility]FF PHYSICIAN NOTE OF PERSONAL INVOLVEMENT IN [...] also discussed her case with her outpatient director equipment Dr. Kem Bishop and with the Apheresis [...] dear lady. SIGNATURE: Dominique Rios DO PAGER: [phone] DATE of SERVICE: October 13, 2017 TIME of SERVICE: 7:18 PM EMERGENCY DEPARTMENT Observed: 10/13/2017 Status: F Source: [place] SUMMARY 4:34 PM [facility] REPOSITORY [facility] Medical Records Department [address] [place] [address] Emergency Department Summary 10/13/17 1046 MR#: [id number] Acct: [id number] Name: PALOMA CANNON Rep #: [id number] : 1990 27 From: Lydia Harley MD [...] intubation and she was transferred to the [facility] as she required plasmapheresis. She is requesting [...] at this hospital. They are requesting the [facility]. I spoke with Dr. Mathieu Christie. The ICU is full and I am awaiting a call back from him. I will continue to stabilize and resuscitate here. I did have our orthopedic dentist see the patient in the emergency department for any other further input. Dr. Buchanan made some changes to the ventilator. Will await transport by helicopter service. Treatment Plan: As above Disposition: Transfer Impression: 1. Acute respiratory failure 2. Alveolar hemorrhage This note was generated with [employer] dictation software. It may contain incorrect words, [...] your Primary Care Provider. Call [facility] ([phone]) or report to the closest Emergency Room. Call 911 if necessary. 10/13/17 1634 <Electronically signed by Lydia Harley MD> Date Lydia Harley MD Cosigner Signature (If Indicated): Date CC: Peyton Rogers MD C3 COMPLEMENT Collected: 10/13/2017 Status: F Source: [place] 4:30 PM [facility] REPOSITORY TYPE CODE TESTS RESULT OUT OF REFERENCE UNITS RANGE LAB C3COMP 86-166 mg/dL Low C3 Complement 67 Performed By: #### C3COMP, C4COMP, SMAB, DNAAB #### [facility] [address] [place], [place] [address] C4 COMPLEMENT Collected: 10/13/2017 Status: F Source: [place] 4:30 PM [facility] REPOSITORY TYPE CODE TESTS RESULT OUT OF REFERENCE UNITS RANGE LAB C4COMP 13-46 mg/dL Low C4 Complement 9 Performed By: #### C3COMP, C4COMP, SMAB, DNAAB #### [place] [id number] SM ANTIBODY Collected: 10/13/2017 Status: F Source: [place] 4:30 PM [facility] REPOSITORY TYPE CODE TESTS RESULT OUT OF REFERENCE UNITS RANGE LAB SMAB <1.0 AI Sm Antibody <0.2 Result Comment: NEGATIVE Negative: <1.0 AI Positive: >0.9 AI Performed By: #### C3COMP, C4COMP, SMAB, DNAAB #### [place] [address] DNA ANTIBODY Collected: 10/13/2017 Status: F Source: [place] 4:30 [facility] REPOSITORY TYPE CODE TESTS RESULT OUT OF REFERENCE UNITS RANGE LAB DNAAB1 <30 IU/mL DNA Antibody <12 Result Comment: Negative for ds DNA Antibodies Negative: <30 IU/mL Equivocal: 30-74 IU/mL Positive: >74 IU/mL Performed By: #### C3COMP, C4COMP, SMAB, DNAAB #### [place] [address] FUNGITELL B-D-GLUCAN Collected: 10/13/2017 Status: F Source: [place] 4:30 [facility] REPOSITORY TYPE CODE TESTS RESULT OUT OF REFERENCE UNITS RANGE LAB BDASAY Negative Fungitell Assay Negative Result Comment: (NOTE) INTERPRETIVE INFORMATION: (1,3)-cysj-R-lxitwc (Fungitell) Less than 31 pg/mL ................... Negative 31-59 pg/mL .......................... Negative 60-79 pg/mL .......................... Indeterminate Greater than or equal to 80 pg/mL .... Positive The Fungitell test is indicated for presumptive diagnosis of fungal infection and should be used in conjunction with other diagnostic procedures. This test does not detect certain fungal species such as Cryptococcus, which produce very low levels of (1,3)-lfzb-Q-sdrwhg. This test will not detect the zygomycetes, such as Absidia, Mucor, and Rhizopus, which are not known to produce (1,3)-zezt-U-rohdpe. In addition, the yeast phase of Blastomyces dermatitidis produces little (1,3)-wjkq-U-efcpag and may not be detected by the assay. Performed by [facility], [address] [place] [id number] [email or web address], Red Brasher MD, Lab. Director LAB BDCMNT pg/mL Fungitell Comments <31 Performed By: #### BDGLUC #### [facility] [address] [place] [address] [id number] PROCEDURE Observed: 10/13/2017 Status: COMPLETED Source: [place] 4:18 PM [facility] REPOSITORY O ID: [id number] Author: Dm Alvarado Service: Critical Care Author Type: Physician Type: Procedures Filed: 10/17/2017 11:09 AM Note Text: BEDSIDE PROCEDURE NOTE PROCEDURE DATE: October 13, 2017 PROCEDURE START TIME: 4:19 PM PRIMARY PROCEDURALIST: Gael Bear MD EMPLOYEE RELATIONS ADMINISTRATOR(S): None INFORMED CONSENT: Informed Consent obtained and [...] 13, 2017 TIME: 4:19 PM PAGER/CONTACT #: [phone] I was present for the entire procedure and supervised the fellow Dm Alvarado MD MPH MSc CASE MGT INIT Observed: 10/13/2017 Status: COMPLETED Source: [facility] 2:17 PM [facility] REPOSITORY HNO ID: [id number] Author: Radha SanchezRn) JEFF Hope Service: Case Management Author Type: Registered Nurse Type: Care Mgt Initial Assessment Filed: 10/13/2017 2:25 PM Note Text: CARE MANAGEMENT: ASSESSMENT AND DISCHARGE PLAN SERVICE DATE: 10/13/2017 SERVICE TIME: 2:17 PM PRIMARY CARE PHYSICIAN: PEYTON ROGERS MD ADMISSION STATUS: Inpatient Needs Prior to Discharge: To Be Determined MEDICAL: Patient/Recruiting Operations Consultant Stated Goals: TBD Health Insurance: [employer] [...] sedated. Has the Patient Been in a Alf Facility in the Past 30 days? TBD SOCIAL: Living Arrangement: TBD Lives With: TBD Financial Resources: TBD Primary Contact: Extended Emergency Contact Information Primary Emergency Contact: Morteza Cannon Address: [address] [place] [address] Mobile Relation: Spouse Secondary Emergency Contact: Morgan Aiken Mobile Relation: Father Mother: Jane Aiken Supportive: Yes, TBD Other Important Patient Contacts: [...] medical record. Pt transferred to MICU from [facility] ICU already intubated. SIGNATURE: Radha Hope RN PATIENT NAME: Paloma Cannon DATE: October 13, 2017 TIME: 2:17 PM PAGER/CONTACT #: [phone] GASV + ALL Collected: 10/13/2017 Status: F Source: [place] 1:42 PM [facility] [place] REPOSITORY TYPE CODE TESTS RESULT OUT OF [...] By: #### VALLBG #### [facility] [address] [place], [place] [address] XR ABDOMEN 1V SUPINE Observed: 10/13/2017 Status: F Source: [place] 1:31 PM [facility] [place] REPOSITORY * * *Final Report* * * [...] the inferior aorta and bilateral iliac arteries. Pie Topper: MURTAZA Transcribe Date/Time: Oct 13 2017 1:59P Dictated by : LINDA DEE MD This examination was interpreted and the report reviewed and electronically signed by: YASMINE VINSON MD on Oct 13 2017 2:22PM EST [id number] XR CHEST 1V FRONTAL Observed: 10/13/2017 Status: F Source: [facility] 1:31 PM [facility] REPOSITORY * * *Final Report* * * [...] Stable enlargement of the cardiomediastinal silhouette. Other: Pie Topper: PSCB Transcribe Date/Time: Oct 13 2017 4:13P Dictated by : GUILLAUME STARKEY MD This examination was interpreted and the report reviewed and electronically signed by: GUILLAUME STARKEY MD on Oct 13 2017 4:15PM EST [id number] Observed: 10/13/2017 Status: COMPLETED Source: [place] 1:28 PM [facility] REPOSITORY HNO ID: [id number] Author: Kit Castro Service: Critical Care Author [...] 11.79 WBC 11.8, Hb 8.4 Cardia ECHO 08.29.2017 with EF 50% with mildly decreased LV function. Normal RV function Outside labs with lactate 12.4, Cr 1.32 (at baseline), INR 2.1 (received warfarin 10.12.2017) Hb 10.1 WBC 17 ABG on 100% PEEP 14 cmH2O FiO2 pH 7.29, pCO2 44, pO2 79 More current lactate 1.2 Museum Director 34 ASSESSMENT Acute hypoxemic respiratory failure with bilateral alveolar infiltrates and differential of pneumonia vs. alveolar hemorrhage intubated 4. when she presented with hemoptysis increased WOB starting with dry cough, then copious hemoptysis developing within hours. Two previous bronchoscopies 01/2016 and did not show alveolar hemorrhage though DAH was seen . Managed with every other week plasmapheresis since 2013, prednisone, cyclophosphamide, with TMP/SMZ prophylaxis. 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 SIGNATURE: Kit Castro MD [facility] PAGER:[phone] Observed: 10/13/2017 Status: F Source: [place] BLOOD CULTURE 1:05 PM [facility] REPOSITORY Culture Result - No growth 5 days Performed By: #### BLCUL #### [facility] [address] [place], [place] [address] URINALYSIS WITH Collected: 10/13/2017 Status: F Source: [place] MICROSCOPIC 1:00 PM [facility] REPOSITORY TYPE CODE TESTS RESULT OUT OF RANGE REFERENCE UNITS LAB UCOL Yellow Color Abnormal Lisseth Alert LAB [facility] Clear Clarity Abnormal Cloudy Alert LAB UGLUC Negative mg/dL Glucose, Urine Negative LAB UBIL Negative Bilirubin, Urine Negative LAB UKET Negative Ketones, Urine Negative LAB USPG 1.005-1.030 Specific [place], Ur 1.024 LAB UHGB Negative Abnormal Hemoglobin/Blood, [...] Epithelial Cells Performed By: #### UAWMIC #### [facility] [address] [place], [place] [address] FIBRINOGEN Collected: 10/13/2017 Status: F Source: [place] 1:00 [facility] REPOSITORY TYPE CODE TESTS RESULT OUT OF REFERENCE UNITS RANGE LAB FIBCT 200-400 mg/dL Fibrinogen 283 Performed By: #### FIBCT, PT, PTT, LACT, CMP, MG1, PHOS, CBCDIF #### [facility] [address] [place], [place] [address] PROTIME Collected: 10/13/2017 Status: F Source: [place] 1:00 PM [facility] REPOSITORY TYPE CODE TESTS RESULT OUT OF RANGE REFERENCE UNITS LAB PSEC 9.7-13.0 sec High PT Sec 19.8 LAB INR 0.9-1.3 High PT INR 2.0 Result Comment: Vitamin K Antagonist (VKA) Therapeutic Range: INR 2 to 3 (Target INR of 2.5) Note: For patients treated with VKA drugs, such as warfarin, the [employer]icians 2012 Guideline recommends [...] Chest 2012, 141:7S-47S Diogenes RA, et al. JAC 2017, 70: 252-289 Performed By: #### FIBCT, PT, PTT, LACT, CMP, MG1, PHOS, CBCDIF #### [facility] [address] [place], [place] [address] APTT Collected: 10/13/2017 Status: F Source: [place] 1:00 [facility] REPOSITORY TYPE CODE TESTS RESULT OUT [...] laboratory APTT reagent in use throughout the [facility]. Performed By: #### FIBCT, PT, PTT, LACT, CMP, MG1, PHOS, CBCDIF #### [facility] [address] [place], [place] [address] LACTATE Collected: 10/13/2017 Status: F Source: [place] 1:00 PM [facility] REPOSITORY TYPE CODE TESTS RESULT OUT OF REFERENCE UNITS RANGE LAB LACT 0.5-2.2 mmol/L Lactate 1.5 Performed By: #### FIBCT, PT, PTT, LACT, CMP, MG1, PHOS, CBCDIF #### [facility] [address] [place], [place] [address] COMP METABOLIC PANEL Collected: 10/13/2017 Status: F Source: [place] 1:00 [facility] REPOSITORY TYPE CODE TESTS RESULT OUT [...] mg/dL Low Glucose 48 Result Comment: The [place] Diabetes Association (ADA) provides guidance for cutoff [...] Standards of Medical Care in Diabetes 2016, [place]. Diabetes Care. 2016.39(Suppl 1). Called to and read back by: Dieter [phone] 10/13/17 1444 [facility] LAB BUN 7-21 mg/dL [...] MG1, PHOS, CBCDIF #### [facility] [address] [place] [address] MAGNESIUM Collected: 10/13/2017 Status: F Source: [place] 1:00 [facility] REPOSITORY TYPE CODE TESTS RESULT OUT OF REFERENCE UNITS RANGE LAB MG 1.7-2.3 mg/dL Magnesium 1.9 Performed By: #### FIBCT, PT, PTT, LACT, CMP, MG1, PHOS, CBCDIF #### [facility] [address] [place] [address] PHOSPHORUS Collected: 10/13/2017 Status: F Source: [place] 1:00 PM [facility] REPOSITORY TYPE CODE TESTS RESULT OUT OF REFERENCE UNITS RANGE LAB PHOS 2.7-4.8 mg/dL Phosphorus 4.2 Performed By: #### FIBCT, PT, PTT, LACT, CMP, MG1, PHOS, CBCDIF #### [facility] [address] [place] [id number] CBC AND DIFFERENTIAL Collected: 10/13/2017 Status: F Source: [place] 1:00 PM [facility] REPOSITORY TYPE CODE TESTS RESULT OUT OF [...] Abs Lymph 0.31 Low LAB AMONO % Hughes% 1.7 LAB AAMONO <0.87 k/uL Abs Hughes 0.20 LAB AEOS % Eosin% 2.6 LAB [...] MG1, PHOS, CBCDIF #### [facility] [address] [place], [place] [address] TYPE AND SCREEN Collected: 10/13/2017 Status: F Source: [place] 1:00 PM [facility] REPOSITORY TYPE CODE TESTS RESULT OUT OF REFERENCE UNITS RANGE LAB %ABR B ABO/RH(D) POSITIVE LAB % Antibody POS Screen Performed By: #### TSCR #### [facility] [address] [place], [place] [address] STAPH AUREUS PCR Collected: 10/13/2017 Status: F Source: [place] 1:00 PM [facility] REPOSITORY TYPE CODE TESTS RESULT OUT OF REFERENCE UNITS RANGE LAB SASRC Nasal S aureus Spec Source LAB MRSRES Negative for MRSA MRSA by PCR. PCR LAB SARES Negative for Staph Staphylococcus aureus PCR aureus by PCR. Performed By: #### SAPCR #### [facility] [address] [place], [place] [address] PROGRESS Observed: 10/13/2017 Status: COMPLETED Source: [place] 12:56 PM [facility] REPOSITORY HNO ID: [id number] Author: Domingo Daniels) Reza Service: (none) Author Type: Nurse Practitioner Type: Progress Notes Filed: 10/13/2017 1:16 PM Note Text: Critical Care Transport Note Patient Name: Paloma Cannon Service Date: October 13, 2017 Referring Facility: [facility] ER Accepting Facility: [place] [address] SUBJECTIVE/CHIEF COMPLAINT: Shortness of breath REASON FOR [...] on coumadin, HTN, HIT. She presented to [place] on 10/13 for evaluation of shortness of breath. Patient received plasmapheresis a few weeks ago and was supposed to have another treatment on 10/09 but missed her appointment. Today patient developed cough which turned in to inability to catch her breath. Patient was brought to [facility] where she was tripoding in respiratory [...] managing the patient requested transfer to the [facility] for tertiary and/or quaternary services unavailable at the referring facility. The physician managing the patient requested the [facility] Critical Care Transport Team transport and [...] start vancomycin infusion - expedite transfer to [facility] for plasmapharesis The transport was completed without significant incident or change in the patient's status . The patient was transported to the the [facility] by Rotor (Helicopter) for tertiary and/or quaternary evaluation and management of her Critical Medical condition(s). Upon arrival to the receiving facility, a zivk-hk-lfov report was given to bedside staff in [...] of suddenly developing. SIGNATURE: Domingo Cobb, MSN COMPOSING MACHINE OPERATOR.LEAD SUPPLY WORKER Acute Care Nurse Practitioner [facility] Critical Care Transport Team CONSULT PROG Observed: 10/13/2017 Status: COMPLETED Source: [place] 12:54 PM [facility] REPOSITORY HNO ID: [id number] Author: Lou Joya (Pharmacist) Service: Pharmacy Author [...] please contact Lou Joya PharmD at pager [phone]. Age: [age] year old Allergies: ALLERGIES Allergen [...] JOYA PHARMACIST Observed: 10/13/2017 Status: F Source: [place] BLOOD CULTURE 12:40 PM [facility] REPOSITORY Culture Result - No growth 5 days Performed By: #### BLCUL #### [facility] [address] [place] [id number] HISTORY PHYSICAL Observed: 10/13/2017 Status: COMPLETED Source: [place] 11:48 AM [facility] REPOSITORY HNO ID: [id number] Author: Hollis Oro Service: Critical Care Author Type: Resident Type: HANDP Filed: 10/13/2017 1:23 PM Note Text: [facility] MICU/CRITICAL CARE HISTORY AND PHYSICAL EXAMINATION [...] bilateral iliac stents and IVC endograft, on shelter AC with warfarin, plasmapharesis q2 weeks, prednisone 5 mg qD), 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 Presented to [facility] ED with hemoptysis/SOB - found to be [...] (BACTRIM DS,SEPTRA DS) 1 tablet ORAL -- potassium chloride ER 40 mEq tab(s) (K-DUR, [...] 13, 2017 TIME: 11:48 AM PAGER/CONTACT #: [phone] BLOOD GASES BY CPS Collected: 10/13/2017 Status: F Source: [place] 10:56 AM [facility] REPOSITORY TYPE CODE TESTS RESULT OUT [...] 14 LAB L9001.1104 Normal Results To ED MD LAB L9001.1105 Normal Time Given 1055 LAB [...] ISTAT 94 Performed By: #### L9000.0800 #### [facility] Point of Care [address] [place] [address] Observed: 10/13/2017 Status: F Source: [place] CULTURE, SPUTUM 10:48 AM [facility] REPOSITORY Gram Stain Acceptable Specimen? Yes (<25 Epithelial cells per/lpf) Gram Stain 1+ White Blood Cells 1+ Epithelial cells Rare Gram positive cocci Resp. Culture Mixed normal respiratory zoila. No Haemophilus, Streptococcus pneumoniae, beta-hemolytic Streptococcus or Staphylococcus aureus isolated. Performed By: #### M100.0800 #### [facility] [address] [place], [place], [address] URINALYSIS, COMPLETE Collected: 10/13/2017 Status: F Source: [place] 10:30 AM [facility] REPOSITORY Order Comment: How was Urine Obtained? [...] URINE SEEN Performed By: #### L400.0001 #### [facility] [address] [place], [address] Observed: 10/13/2017 Status: F Source: [place] CULTURE, URINE 10:30 AM [facility] REPOSITORY Urine Culture ORGANISM 1: Enterococcus faecalis [place] Count <1000 Enterococcus faecalis: REACTION Ampicillin $ <=2 S Benzylpenicillin NF 2 S Ciprofloxacin $ 4 R Gentamicin SYN-R R Levofloxacin $ >=8 R Linezolid $$$$ 2 S Nitrofurantoin $ <=16 S Streptomycin $ SYN-R R Tetracycline NF >=16 R Vancomycin $ 1 S (NF) indicates non-formulary drug at [facility]. Approval by Infectious Disease Specialist required before non-formulary drugs may be ordered and/or dispensed. * CLSI guidelines does not recommend testing of cephalosporins. This interpretation is deduced from Beta-lactam/penicillin results. Performed By: #### M100.0650 #### [facility] [address] [place], [place], [address] BLOOD GASES BY CPS Collected: 10/13/2017 Status: F Source: [place] 10:28 AM [facility] REPOSITORY TYPE CODE TESTS RESULT OUT [...] 10 LAB L9001.1104 Normal Results To ED MD LAB L9001.1105 Normal Time Given 1020 LAB [...] ISTAT 85 Performed By: #### L9000.0800 #### [facility] Point of Care [facility] [place] [address] Observed: 10/13/2017 Status: F Source: [place] CULTURE, BLOOD (WB) 10:22 AM [facility] REPOSITORY BC No growth in 5 days. Performed By: #### M200.1000 #### [facility] [place], [address] Observed: 10/13/2017 Status: F Source: [place] CULTURE, BLOOD (WB) 10:15 AM [facility] REPOSITORY BC No growth in 5 days. Performed By: #### M200.1000 #### [facility] [address] [place], [address] CHEST 1 VIEW Observed: 10/13/2017 Status: F Source: [place] (PORTABLE) 9:59 AM [facility] REPOSITORY [facility] Imaging Services [address] [place] [address] Chest 1 View (Portable) MR#: [id number] Acct: [id number] Name: PALOMA CANNON Rep #: [id number] : 1990 F 27 From: Reinaldo Kam MD PCP: Peyton Rogers MD Status: REG ER Study: Chest 1 View (Portable) Date of Exam: 10/13/17 Exam# [id number] Ordering Dr: Lydia Harley MD STUDY: X-RAY [...] Reinaldo Kam MD at 10:24 EDT Tel [phone], Service support , CC: Peyton Rogers MD; Lydia Harley MD Pie Topper: Signed PROTHROMBIN TIME W/INR Collected: 10/13/2017 Status: F Source: [place] 9:35 AM [facility] REPOSITORY TYPE CODE TESTS RESULT OUT OF RANGE REFERENCE UNITS LAB L300.4150 11.7-14.9 SECONDS High PROTIME 23.7 LAB L300.4200 Normal INR 2.1 Performed By: #### L300.3900, L300.4310 #### [facility] [address] [place], [place], [address] PARTIAL THROMBOPLAST Collected: 10/13/2017 Status: F Source: [place] TIME 9:35 AM [facility] REPOSITORY TYPE CODE TESTS RESULT OUT OF RANGE REFERENCE UNITS LAB L300.4310 24.1-36.2 Seconds Normal PTT 34.9 Performed By: #### L300.3900, L300.4310 #### [facility] [address] [place], [place], [address] COMPREHENSIVE METABOLIC Collected: 10/13/2017 Status: F Source: [place] PROFIL 9:35 AM [facility] REPOSITORY Order Comment: 'TROP' Serial specimen #1, [...] 18 Performed By: #### L500.4050, L501.4010 #### [facility] [address] [facility] [place], [place], [address] TROPONIN-I Collected: 10/13/2017 Status: F Source: [place] 9:35 AM [facility] REPOSITORY Order Comment: 'TROP' Serial specimen #1, #2, #3, or #4: 1 TYPE CODE TESTS RESULT OUT OF RANGE REFERENCE UNITS LAB L501.4010 <0.06 ng/mL Normal 0.06 TROPONIN-I Result Comment: TROPONIN-I EXPECTED VALUES <0.05 NEGATIVE 0.06 - 0.59 AT RISK OF [place] > OR = 0.60 SUGGEST [place] Performed By: #### L500.4050, L501.4010 #### [facility] [address] [place], [place], [address] CBC W/DIFF, AUTOMATED Collected: 10/13/2017 Status: C Source: [place] 9:35 AM [facility] REPOSITORY TYPE CODE TESTS RESULT OUT [...] 2+ Performed By: #### L100.0100, L100.4425 #### [facility] [address] [place], [address] NRBC PANEL Collected: 10/13/2017 Status: F Source: [place] 9:35 AM [facility] REPOSITORY TYPE CODE TESTS RESULT OUT OF RANGE REFERENCE UNITS LAB L100.4450 0-5 % Normal NRBC, FLAGGED 0.24 LAB L100.4455 0-5 10 3/uL Normal NRBC # 1.40 Performed By: #### L100.0100, L100.4425 #### [facility] [address] [place], [address] LACTIC ACID Collected: 10/13/2017 Status: F Source: [place] 9:35 AM [facility] REPOSITORY Order Comment: Yes/No query for Sepsis [...] Yinka Nava Performed By: #### L503.6005 #### [facility] [address] [place], [address] ,SERUM,HCG QUALI. Collected: Status: F Source: [place] 10/13/2017 9:35 AM [facility] REPOSITORY TYPE CODE TESTS RESULT OUT OF REFERENCE UNITS RANGE LAB L700.7000 0-9 Nonpreg Negative Normal HCGSQUAL NEGATIVE LAB L700.6700 =>Qualitative mIU/mL Normal HCG Qual 2 triggr Performed By: #### L700.6800 #### [facility] [address] [place], [address] PROTHROMBIN TIME W/INR Collected: 10/13/2017 Status: F Source: [place] 8:00 AM [facility] REPOSITORY Order Comment: MEDOUT/PORTDRAW TYPE CODE TESTS RESULT OUT OF RANGE REFERENCE UNITS LAB L300.4150 11.7-14.9 SECONDS High PROTIME 22.8 LAB L300.4200 Normal INR 2.0 Performed By: #### L300.3900 #### [facility] [address] [place], [address] Observed: 10/13/2017 Status: F Source: [place] RESPIRATORY CULT/STAIN 12:36 AM [facility] REPOSITORY Smear Result - Rare Mixed oral and respiratory zoila Few Polymorphonuclear leukocytes Rare Epithelial cells Culture Result - Rare Normal respiratory zoila present Performed By: #### RCULST #### [facility] [address] [place], [place] [address] CNCRITCR Observed: 10/13/2017 Status: COMPLETED Source: [place] 12:00 AM [facility] REPOSITORY Critical Care Transport (CCT) PALOMA CANNON ([id number]) 1990 F PTR Date Time Provider Department 10/13/17 DOMINGO COBB (LEAD SUPPLY WORKER) CCT During your visit today, we recorded the following information about you: Domingo Cobb, MSN COMPOSING MACHINE OPERATOR.ELLIOTT 10/13/2017 1:16 PM Signed Critical Care Transport Note Patient Name: Paloma Aguilar Davis Service Date: October 13, 2017 Referring Facility: [facility] Accepting Facility: [place] [address] SUBJECTIVE/CHIEF COMPLAINT: Shortness of breath REASON FOR [...] on coumadin, HTN, HIT. She presented to [place] on 10/13 for evaluation of shortness of breath. Patient received plasmapheresis a few weeks ago and was supposed to have another treatment on 10/09 but missed her appointment. Today patient developed cough which turned in to inability to catch her breath. Patient was brought to [facility] ER where she was tripoding in respiratory [...] managing the patient requested transfer to the [facility] for tertiary and/or quaternary services unavailable at the referring facility. The physician managing the patient requested the [facility] Critical Care Transport Team transport and [...] nephrotoxic agents - DVT (deep venous thrombosis) ([facility]) - Elevated CA-125 11/30/2013 244 - Essential hypertension 10/08/2015 Stable on home medications Plan: -continue to monitor on home meds - 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 Bivalirudin to Warfarin bridging - HIT (heparin-induced thrombocytopenia) ([facility]) - Nontoxic multinodular goiter - Obese [...] start vancomycin infusion - expedite transfer to [facility] for plasmapharesis The transport was completed without significant incident or change in the patient's status . The patient was transported to the the [facility] by Rotor (Helicopter) for tertiary and/or quaternary evaluation and management of her Critical Medical condition(s). Upon arrival to the receiving facility, a buak-nl-ossq report was given to bedside staff in [...] of suddenly developing. SIGNATURE: Domingo Cobb, MSN COMPOSING MACHINE OPERATOR.LEAD SUPPLY WORKER Acute Care Nurse Practitioner [facility] Critical Care Transport Team Allergies As [...] TIME W/INR Collected: 10/09/2017 Status: F Source: [place] 8:15 AM [facility] REPOSITORY Order Comment: MEDOUT/PORT DRAW TYPE CODE TESTS RESULT OUT OF RANGE REFERENCE UNITS LAB L300.4150 11.7-14.9 SECONDS High PROTIME 24.1 LAB L300.4200 Normal INR 2.2 Performed By: #### L300.3900 #### [facility] [address] [facility] [address] [place], [place], [address] PROTHROMBIN TIME W/INR Collected: 10/06/2017 Status: F Source: [place] 8:00 AM [facility] REPOSITORY Order Comment: Comments: FAX TO MAGDALENA LEWIS CNP [phone] TYPE CODE TESTS RESULT OUT OF RANGE REFERENCE UNITS LAB L300.4150 11.7-14.9 SECONDS High PROTIME 15.2 LAB L300.4200 Normal INR 1.2 Performed By: #### L300.3900 #### [facility] [address] [facility] [place], [address] PLAN OF CARE Observed: 10/05/2017 Status: COMPLETED Source: [place] 4:40 PM [facility] REPOSITORY O ID: [id number] Author: Aleta SanchezColumbia Va Health CareDevonte Mandujano (Pharmacist) Service: Pharmacy Author Type: Pharmacist [...] Pharmacist October 05, 2017 4:40 PM Pager: [phone] 10/05/2017 4:40 PM Medication List START taking [...] Medications These medications were sent to [facility] [place], [place] [address] - [address] - [phone] [place] [address] - gabapentin 100 mg capsule Information about where to get these medications is not yet available ! Ask your nurse or doctor about these medications - COMPOUNDED PRESCRIPTION CNDS Observed: 10/05/2017 Status: COMPLETED Source: [place] 4:31 PM [facility] REPOSITORY O ID: [id number] Author: Sanchez Quiros MD Service: Hospital Medicine Author Type: Resident Type: Discharge Summaries Filed: 10/05/2017 4:56 PM Note Text: Attestation signed by Ameena Lim MD at 10/06/2017 4:39 PM I have seen and evaluated the patient and discussed the case with the resident physician. I agree with the assessment and plan as documented in the resident?s note. Ameena Lim MD October 06, 2017 4:39 PM DISCHARGE SUMMARY PATIENT NAME: Paloma Cannon ADMISSION DATE: 09/29/2017 DISCHARGE DATE: 10/05/2017 ATTENDING PHYSICIAN: Ameena Lim MD REASON FOR HOSPITALIZATION: SOB, hypoxemia, hemoptysis DIAGNOSIS: Principal Problem: HTN (hypertension) Active Problems: APS (antiphospholipid syndrome) (HCC) CKD (chronic kidney disease) stage 3, GFR 30-59 ml/min (HFpEF) heart failure with preserved ejection fraction (HCC) History of HIT (heparin-induced thrombocytopenia) (HCC) Peripheral neuropathy Obesity, Class II, BMI 35-39.9 [...] Provider Department Center 10/16/2017 11:00 AM Akhil [facility]Chain PullerDevonte Howard [facility] [place] 10/16/2017 12:30 PM [facility] [place] 10/30/2017 12:30 PM [facility] [place] 11/13/2017 12:00 PM [facility] [place] 11/24/2017 9:00 AM [facility] [place] 11/27/2017 12:00 PM [facility] [place] 12/05/2017 8:15 AM [facility] [place] 12/11/2017 12:00 PM [facility] [place] 12/11/2017 12:20 PM XR CHEST MAIN A21 RADMN RADIO A BLDG 12/11/2017 1:25 PM Guillaume Alicea PULMMN PULM A/E/R/G 12/25/2017 12:00 PM APHERESIS [...] 05, 2017 TIME: 4:31 PM PAGER/CONTACT #: [phone] CASE MANAGEM Observed: 10/05/2017 Status: COMPLETED Source: [place] 4:28 PM [facility] [place] REPOSITORY HNO ID: [id number] Author: Candie SanchezRn) JEFF Williamson Service: Care [...] during this admission? No HANDOFF COMMUNICATION: Specialty Digital Manager: Eugenia Ly Primary Care Physician: PEYTON ROGERS MD TRANSPORTATION ARRANGEMENTS: Car Family ADDITIONAL CONTACT RESOURCES: N/A Reviewed discharge instructions, patient discharged home with no skilled home care needs at this time. Per Mari @ [phone] [facility] oxygen Naartjie home going oxygen to be delivered at the bedside today. Discharge instructions by nursing staff. Family to provide transport. SIGNATURE: Candie Williamson RN PATIENT NAME: Paloma Cannon DATE: October 05, 2017 TIME: 4:28 PM PAGER/CONTACT #: [phone] NUTRITION Observed: 10/05/2017 Status: COMPLETED Source: [place] 2:58 PM [facility] [place] REPOSITORY [facility] ID: [id number] Author: Janel Hollingsworth (Diet-T) Basic Service: Nutrition Therapy Author Type: Machine Feeder Raw Stock Type: Nutrition Filed: 10/05/2017 3:00 PM Note [...] October 05, 2017 TIME: 2:58 PM PAGER: [phone] CONSULT PROG Observed: 10/05/2017 Status: COMPLETED Source: [place] 2:07 PM [facility] REPOSITORY HNO ID: [id number] Author: Paulette Gooden (Elliott) Davonte Service: Vascular [...] AND HS sodium chloride 0.65 % 2 [place] (AYR, OCEAN) 2 [place] EACH NOSTRIL PRN cyclophosphamide 150 mg cap(s) [...] 10/08 check INR Monday 10/09 at lab will call and dose INR on Monday CBC/INR daily follows her INRs/warfarin outpatient given complexity of dosing/APS/PLEX regimen following along SIGNATURE: Paulette Naranjo APRN.CNP PATIENT NAME: Paloma Cannon DATE: October 05, 2017 TIME: 1:09 PM PAGER/CONTACT #: [phone] . CASE MANAGEM Observed: 10/05/2017 Status: COMPLETED Source: [place] 11:33 AM [facility] [place] REPOSITORY O ID: [id number] Author: Cherrie Loaiza (Asst) Service: Care Management Author Type: Resource Center Farm Management Agent Type: Care Mgt Progress Note Filed: 10/05/2017 11:34 AM Note Text: CARE MANAGEMENT PROGRESS NOTE SERVICE DATE: 10/05/2017 SERVICE TIME: 11:18 LOS: 6 days IM letter given to patient on 10/05/17. SIGNATURE: Asst Xiomara PATIENT NAME: Paloma Cannon DATE: October 05, 2017 TIME: 11:33 AM PAGER/CONTACT #: [phone] CBC Collected: 10/05/2017 Status: F Source: [place] 5:04 [facility] REPOSITORY TYPE CODE TESTS RESULT OUT [...] PT, BMP, PHOS #### [facility] [address] [place] [address] PROTIME Collected: 10/05/2017 Status: F Source: [place] 5:04 [facility] REPOSITORY TYPE CODE TESTS RESULT OUT OF RANGE REFERENCE UNITS LAB PSEC 9.7-13.0 sec PT Sec 11.2 LAB INR 0.9-1.3 PT INR 1.1 Result Comment: Vitamin K Antagonist (VKA) Therapeutic Range: INR 2 to 3 (Target INR of 2.5) Note: For patients treated with VKA drugs, such as warfarin, the [place] [employer] 2012 Guideline recommends [...] Chest 2012, 141:7S-47S Diogenes RESENDIZ, et al. [facility] 2017, 70: 252-289 Performed By: #### CBC, PT, BMP, PHOS #### [facility] [address] [place], [place] [address] BASIC METABOLIC PANL Collected: 10/05/2017 Status: F Source: [place] 5:04 AM [facility] REPOSITORY TYPE CODE TESTS RESULT OUT OF REFERENCE UNITS RANGE LAB GLU 74-99 mg/dL Glucose 80 Result Comment: The [place] [employer] (ADA) provides guidance for cutoff [...] Standards of Medical Care in Diabetes 2016, [place] [employer]. Diabetes Care. 2016.39(Suppl 1). LAB [...] PT, BMP, PHOS #### [facility] [place], [place] [address] PHOSPHORUS Collected: 10/05/2017 Status: F Source: [place] 5:04 AM [facility] REPOSITORY TYPE CODE TESTS RESULT OUT OF REFERENCE UNITS RANGE LAB PHOS 2.7-4.8 mg/dL Phosphorus 4.1 Performed By: #### CBC, PT, BMP, PHOS #### [facility] [address] [place], [place] [address] CONSULT PROG Observed: 10/04/2017 Status: COMPLETED Source: [place] 1:09 PM [facility] REPOSITORY HNO ID: [id number] Author: Paulette Daniels) Davonte Service: Vascular Medicine [...] AND HS sodium chloride 0.65 % 2 [place] (AYR, OCEAN) 2 [place] EACH NOSTRIL PRN cyclophosphamide 150 mg cap(s) [...] 27 year old female well known to [facility] Med service for a hx of [...] home) monitor for recurrent hemoptysis CBC/INR daily follows her INRs/warfarin outpatient given complexity of dosing/APS/PLEX regimen following along has hx of chronic lymphedema well controlled w/wraps and elevation please wrap B/L LE from base to toes to just below the knee daily w/HEATHER Wedge ordered SIGNATURE: Paulette Naranjo APRN.LEAD SUPPLY WORKER PATIENT NAME: Paloma Cannon DATE: October 04, 2017 TIME: 1:09 PM PAGER/CONTACT #: [phone] . PROGRESS Observed: 10/04/2017 Status: COMPLETED Source: [place] 8:01 AM [facility] [place] REPOSITORY HNO ID: [id number] Author: Ameena Lim MD Service: Hospital Medicine Author Type: Physician Type: Progress Notes Filed: 10/04/2017 4:21 PM Note Text: DEPARTMENT OF HOSPITAL MEDICINE PROGRESS NOTE SERVICE DATE: 10/04/2017 SERVICE TIME: 8:01 AM Hospital Medicine/Primary Attending: Ameena Lim MD NIGHT AND WEEKEND COVERAGE: Days: [phone], please page me for patient issues. Nights: [phone], please page Team GIM1a; overnight coverage pager [phone] Subjective INTERVAL HPI: No acute events overnight. 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 [facility] STAFF PHYSICIAN NOTE OF PERSONAL INVOLVEMENT IN [...] found to be positive for lupus anticoagulant, kmhc-o4-cyeozndtoejk, and anti-cardiolipin antibodies usually gets plasmapheresis q2 [...] and/or coordinating care for the patient. Ameena Lim MD October 04, 2017 4:21 PM NURSING PROG Observed: 10/04/2017 Status: COMPLETED Source: [place] 4:20 AM [facility] REPOSITORY [facility] ID: [id number] Author: [place] SauerDevonte Krishnamurthy RN Service: Nursing Author Type: Registered Nurse Type: Nursing Progress Note Filed: 10/04/2017 4:21 AM Note Text: Nursing Progress Note Patient Name: Paloma Cannon Patient Location: [id number]/H051-21 Event(s) / Intervention Note: The patient was observed having the following problems: drop in H/H from 8.6/27.8 to 7.8/25.8 The time of the event occurred at: 0420. The following intervention(s) were initiated: [place] [phone]. After the initiated interventions, the following observation(s) were made: nothing further noted. Will continue to observe and check with patient. This note was completed by: Clayton Krishnamurthy RN CBC Collected: 10/04/2017 Status: F Source: [place] 3:36 AM [facility] REPOSITORY TYPE CODE TESTS RESULT OUT OF [...] PT, BMP, PHOS #### [facility] [address] [place], [place] [address] PROTIME Collected: 10/04/2017 Status: F Source: [place] 3:36 AM [facility] REPOSITORY TYPE CODE TESTS RESULT OUT OF RANGE REFERENCE UNITS LAB PSEC 9.7-13.0 sec PT Sec 11.0 LAB INR 0.9-1.3 PT INR 1.1 Result Comment: Vitamin K Antagonist (VKA) Therapeutic Range: INR 2 to 3 (Target INR of 2.5) Note: For patients treated with VKA drugs, such as warfarin, the [employer] 2012 Guideline recommends [...] Chest 2012, 141:7S-47S Diogenes RA, et al. [facility] 2017, 70: 252-289 Performed By: #### CBC, PT, BMP, PHOS #### [facility] [address] [address] BASIC METABOLIC PANL Collected: 10/04/2017 Status: F Source: [place] 3:36 AM [facility] REPOSITORY TYPE CODE TESTS RESULT OUT OF REFERENCE UNITS RANGE LAB GLU 74-99 mg/dL High Glucose 118 Result Comment: The [place] Diabetes Association (ADA) provides guidance for cutoff [...] Standards of Medical Care in Diabetes 2016, [place]. Diabetes Care. 2016.39(Suppl 1). LAB [...] PT, BMP, PHOS #### [facility] [address] [place] [address] PHOSPHORUS Collected: 10/04/2017 Status: F Source: [place] 3:36 AM [facility] REPOSITORY TYPE CODE TESTS RESULT OUT OF REFERENCE UNITS RANGE LAB PHOS 2.7-4.8 mg/dL Phosphorus 3.7 Performed By: #### CBC, PT, BMP, PHOS #### [facility] [address] [place] [address] CASE MGT INIT Observed: 10/03/2017 Status: COMPLETED Source: [place] 1:07 PM [facility] REPOSITORY HNO ID: [id number] Author: Candie SanchezRn) JEFF Williamson Service: Care Management Author Type: Registered Nurse Type: Care Mgt Initial Assessment Filed: 10/03/2017 1:16 PM Note Text: CARE MANAGEMENT: ASSESSMENT AND DISCHARGE PLAN SERVICE DATE: 10/03/2017 SERVICE TIME: 1:07 PM PRIMARY CARE PHYSICIAN: PEYTON ROGERS MD ADMISSION STATUS: Inpatient Needs Prior to Discharge: To Be Determined MEDICAL: Patient/Recruiting Operations Consultant Stated Goals: To have reduction in symptoms To improve my functional status To return home to life as it was Health Insurance: MEDICARE A AND B Medicare, Medicaid Health Issues Impacting Discharge Plan: Hemoptysis Last Admission Date: Previous admit date: 08/25/2017 Is this Within the Past 30 days? No Advance Directive: Current Advance Directive: Health Care Power of Keying Machine Operator In Chart: No Communication Center Coordinator Assisted with AD Completion: No Unable to [...] minute Has the Patient Been in a Alf Facility in the Past 30 days? No SOCIAL: Living Arrangement: Apartment Lives With: Spouse Financial Resources: Disabled Primary Contact: Extended Emergency Contact Information Primary Emergency Contact: Morteza Cannon Address: [address] [place] [address] Mobile Relation: Spouse Secondary Emergency Contact: Morgan [...] 0 I feel financially burdened by my smx-pt-jnhkbd expenses for my prescription medication: Disagree completely [...] oxygen 2 liters @ night, supplied by [facility] (DME). Patient stated has enough supply. Anticipated discharge plan is home with no skilled home care needs. Pt denies any new questions or concerns at this time. CM will continue to follow and update on discharge plans and needs. Upon discharge family will provide transport. SIGNATURE: Candie Williamson RN PATIENT NAME: Paloma Cannon DATE: October 03, 2017 TIME: 1:07 PM PAGER/CONTACT #: [phone] CONSULT PROG Observed: 10/03/2017 Status: COMPLETED Source: [place] 12:33 PM [facility] [place] REPOSITORY O ID: [id number] Author: Paulette Gooden (Chain Puller) LORRAINE Naranjo.ELLIOTT Service: Vascular Medicine Author Type: [...] AND HS sodium chloride 0.65 % 2 [place] (AYR, OCEAN) 2 [place] EACH NOSTRIL PRN gabapentin 300 mg cap(s) [...] warfarin to home dose tomorrow. CBC/INR daily follows her INRs/warfarin outpatient given complexity of dosing/APS/PLEX regimen following along SIGNATURE: Paulette Naranjo APRN.LEAD SUPPLY WORKER PATIENT NAME: Paloma Cannon DATE: October 03, 2017 TIME: 12:33 PM PAGER/CONTACT #: [phone] . PROGRESS Observed: 10/03/2017 Status: COMPLETED Source: [place] 11:39 AM [facility] [place] REPOSITORY HNO ID: [id number] Author: Ameena Lim MD Service: Hospital Medicine Author Type: Physician Type: Progress Notes Filed: 10/03/2017 5:34 PM Note Text: DEPARTMENT OF HOSPITAL MEDICINE PROGRESS NOTE SERVICE DATE: 10/03/2017 SERVICE TIME: 11:39 AM Hospital Medicine/Primary Attending: Ameena Lim MD NIGHT AND WEEKEND COVERAGE: Days: [phone], please page me for patient issues. Nights: [phone], please page Team Claire; overnight coverage pager [phone] Subjective INTERVAL HPI: No acute events overnight. 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 Lzca-nn-jeak time was 20 minutes SIGNATURE: Ameena Lim MD PAGER:[phone] DATE of SERVICE: 10/03/2017 TIME of SERVICE: 5:34 PM PT ED Observed: 10/03/2017 Status: COMPLETED Source: [place] 10:39 AM [facility] REPOSITORY HNO ID: [id number] Author: Ccf Provider Service: (none) Author Type: Physician Type: Patient Education Filed: 10/03/2017 10:39 AM Note Text: [facility] Patient Education Report --------- Name: PALOMA CANNON Date: 10/03/2017 Time: 10:38 AM Patient Ordered Video: Inpatient Falls from [id number] via phone number [phone] at 10:38 AM PLAN OF CARE Observed: 10/03/2017 Status: COMPLETED Source: [place] 10:29 AM [facility] REPOSITORY O ID: [id number] Author: Onofre Crawley (Cost And Sales Record Supervisor) Service: Pharmacy Author Type: Pharmacist Type: Plan of Care Filed: 10/03/2017 11:57 AM Note Text: MEDICATION RECONCILIATION Patient Name:Karyna Cannon : 1990 Reconciliation: Yes Medications intentionally [...] See Comments Elevated cardiac enzymes Preferred Pharmacy: [facility] Current STAFF INTERNIST OFFICE BASED ONLY Medications: Prior to Admission medications as of [...] needed. Unknown at Unknown time ONOFRE CRAWLEY, RUBBER AND POUNDER [id number] October 03, 2017 10:29 AM PLAN OF CARE Observed: 10/03/2017 Status: COMPLETED Source: [place] 10:02 AM [facility] REPOSITORY O ID: [id number] Author: Onofre Crawley (Cost And Sales Record Supervisor) Service: Pharmacy Author Type: Pharmacist Type: Plan [...] Additional comments: ? Medications to add to STAFF INTERNIST OFFICE BASED ONLY med list ? Fondaparinux 2.5 mg/0.5 mL injection - inject subcutaneously once daily. Bridge from warfarin. ? Torsemide 20 mg tablets scheduled daily - takes up to 60 mg total as needed for chronic edema ? STAFF INTERNIST OFFICE BASED ONLY list medication changes ? Patient takes amlodipine [...] See Comments Elevated cardiac enzymes Preferred Pharmacy: [facility] Current STAFF INTERNIST OFFICE BASED ONLY Medications: Prior to Admission medications as of [...] (FLONASE) 50 mcg/actuation nasal spray Use 1 [place] in each nostril once daily. Unknown at Unknown time senna 8.6 mg tab Take 1 tablet by mouth twice daily as needed. Unknown at Unknown time Fany Lion ([employer] Estates Paralegal) October 03, 2017 10:03 AM ONOFRE CRAWLEY, RUBBER AND POUNDER [id number] 10/03/17 10:17 AM CONSULT PROG Observed: 10/03/2017 Status: COMPLETED Source: [place] 9:25 AM [facility] [place] REPOSITORY HNO ID: [id number] Author: Justina Pollard (Pa) Service: Hematology Author Type: Physician Farm Management Agent Type: Consult Progress Note Filed: 10/03/2017 2:49 [...] AND HS sodium chloride 0.65 % 2 [place] (AYR, OCEAN) 2 [place] EACH NOSTRIL PRN gabapentin 300 mg cap(s) [...] October 03, 2017 TIME: 9:25 AM PAGER: [phone] PROGRESS Observed: 10/03/2017 Status: COMPLETED Source: [place] 6:55 AM [facility] REPOSITORY [facility] ID: [id number] Author: Danielle (Rn) JEFF Jimenes Service: (none) [...] (L) PROGRESS Observed: 10/03/2017 Status: COMPLETED Source: [place] 5:27 AM [facility] REPOSITORY HNO ID: [id number] Author: Danielle (Rn) JEFF Jimenes Service: (none) Author Type: Registered Nurse Type: Progress Notes Filed: 10/03/2017 7:49 AM Note Text: Nursing Progress Note Patient Name: Paloma Cannon Patient Location: 51 021/H051-21 Daily Note: Vitals stable. SOB with [...] request. Sepsis alert received in AM (0600). H Cassandra notified of alert. Day shift notified of alert. Will continue to monitor This note was completed by: Danielle Jimenes RN PROTIME Collected: 10/03/2017 Status: F Source: [place] 4:00 AM [facility] REPOSITORY TYPE CODE TESTS RESULT OUT OF RANGE REFERENCE UNITS LAB PSEC 9.7-13.0 sec PT Sec 11.4 LAB INR 0.9-1.3 PT INR 1.1 Result Comment: Vitamin K Antagonist (VKA) Therapeutic Range: INR 2 to 3 (Target INR of 2.5) Note: For patients treated with VKA drugs, such as warfarin, the [place]icians 2012 Guideline recommends [...] Chest 2012, 141:7S-47S Diogenes RA, et al. [facility] 2017, 70: 252-289 Performed By: #### PT, CBC, BMP, MG1, PHOS #### [facility] [address] [place], [place] [address] CBC Collected: 10/03/2017 Status: F Source: [place] 4:00 [facility] REPOSITORY TYPE CODE TESTS RESULT OUT [...] BMP, MG1, PHOS #### [facility] [address] [place], [place] [address] BASIC METABOLIC PANL Collected: 10/03/2017 Status: F Source: [place] 4:00 [facility] REPOSITORY TYPE CODE TESTS RESULT OUT OF REFERENCE UNITS RANGE LAB GLU 74-99 mg/dL High Glucose 131 Result Comment: The [place] Diabetes Association (ADA) provides guidance for cutoff [...] Standards of Medical Care in Diabetes 2016, [place]. Diabetes Care. 2016.39(Suppl 1). LAB [...] BMP, MG1, PHOS #### [facility] [address] [place], [place] [address] MAGNESIUM Collected: 10/03/2017 Status: F Source: [place] 4:00 AM [facility] [place] REPOSITORY TYPE CODE TESTS RESULT OUT OF REFERENCE UNITS RANGE LAB MG 1.7-2.3 mg/dL Magnesium 2.0 Performed By: #### PT, CBC, BMP, MG1, PHOS #### [facility] [address] [place], [place] [address] PHOSPHORUS Collected: 10/03/2017 Status: F Source: [place] 4:00 AM [facility] REPOSITORY TYPE CODE TESTS RESULT OUT OF REFERENCE UNITS RANGE LAB PHOS 2.7-4.8 mg/dL Phosphorus 3.4 Performed By: #### PT, CBC, BMP, MG1, PHOS #### [facility] [address] [place], [place] [address] PROGRESS Observed: 10/02/2017 Status: COMPLETED Source: [place] 10:00 PM [facility] REPOSITORY HNO ID: [id number] Author: Danielle SanchezRn) JEFF Jimenes Service: (none) Author Type: Registered [...] NURSING PROG Observed: 10/02/2017 Status: COMPLETED Source: [place] 8:00 PM [facility] REPOSITORY HNO ID: [id number] Author: Kathi SanchezRn) JEFF Jones Service: Nursing Author Type: Registered Nurse Type: Nursing Progress Note Filed: 10/02/2017 8:03 PM Note Text: Report called to H51 -21 PLAN OF CARE Observed: 10/02/2017 Status: COMPLETED Source: [place] 7:41 PM [facility] REPOSITORY HNO ID: [id number] Author: Jessica Scott (Haritha) Riky Service: Critical Care Author Type: Resident Type: Plan of Care Filed: 10/02/2017 7:42 PM Note Text: Patient has a bed on H51-21 under general internal medicine. Stable for transfer. Sign out given to [facility] who will assign an accepting physician once patient is transferred. Jessica Lan MD October 02, 2017 7:42 PM PLAN OF CARE Observed: 10/02/2017 Status: COMPLETED Source: [place] 3:14 PM [facility] REPOSITORY HNO ID: [id number] Author: Michelle Randhawa (Fel) Service: Hematology/Oncology Author Type: Fellow Type: Plan of Care Filed: 10/02/2017 3:15 PM Note Text: Chart reviewed and patient seen at bedside. Interim events noted. Pheresis today, Dr. González ponce. Anticoagulation being managed by . Hematology will continue to follow peripherally. Michelle Randhawa MD Hematology and Oncology Fellow Pager: [phone] October 02, 2017 3:15 PM CONSULT PROG Observed: 10/02/2017 Status: COMPLETED Source: [place] 2:28 PM [facility] REPOSITORY HNO ID: [id number] Author: Paulette Gooden (Chain Puller) LORRAINE Naranjo.ELLIOTT Service: Vascular Medicine Author Type: [...] AND HS sodium chloride 0.65 % 2 [place] (AYR, OCEAN) 2 [place] EACH NOSTRIL PRN gabapentin 300 mg cap(s) [...] 02, 2017 TIME: 2:28 PM PAGER/CONTACT #: [phone] . PROGRESS Observed: 10/02/2017 Status: COMPLETED Source: [place] 12:12 PM [facility] [place] REPOSITORY [facility] ID: [id number] Author: Sanjiv Corado Service: Critical Care Author [...] found to be positive for lupus anticoagulant, bxom-g1-xwkqoynldhcg, and anti-cardiolipin antibodies for which she gets [...] today, no ICU requirements, may discharge to [facility] - Plans for plasmapheresis tomorrow per [...] triple positive with + lupus anticoagulant, + gnwr-o6-grqfhonwytit, and + anti-cardiolipin antibodies, she is on [...] 02, 2017 TIME: 12:12 PM PAGER/CONTACT #: [phone] [facility] STAFF PHYSICIAN NOTE OF PERSONAL INVOLVEMENT IN [...] INSTITUTE PROCEDURE Observed: 10/02/2017 Status: COMPLETED Source: [place] 12:03 PM [facility] REPOSITORY HNO ID: [id number] Author: Lisseth Claudio MD Service: Apheresis Author [...] Collection bag identification label confirmed with { :[id number]::patient and s Date: 10/02/2017 Catheter Site Dressing: [...] Approx. 60ml blood returned. New treatment started [id number] without further difficulties. Patient instructed to continue abundant oral fluids. Report given to unit nurse. Patient remains in hospital bed. Treatment Started by Apheresis Nurse: Carmita Verdin RN Treatment Completed by Apheresis Nurse: .Carmita Verdin RN [facility] STAFF PHYSICIAN NOTE OF PERSONAL INVOLVEMENT IN [...] MD October 02, 2017 4:23 PM Pager: [phone] PROTIME Collected: 10/01/2017 Status: F Source: [place] 11:52 PM [facility] [place] REPOSITORY TYPE CODE TESTS RESULT OUT OF RANGE REFERENCE UNITS LAB PSEC 9.7-13.0 sec PT Sec 12.5 LAB INR 0.9-1.3 PT INR 1.2 Result Comment: Vitamin K Antagonist (VKA) Therapeutic Range: INR 2 to 3 (Target INR of 2.5) Note: For patients treated with VKA drugs, such as warfarin, the [place] [employer]icians 2012 Guideline recommends [...] Chest 2012, 141:7S-47S Diogenes RESENDIZ et al. [facility] 2017, 70: 252-289 Performed By: #### PT, CBC, BMP, MG1, PHOS #### [facility] [address] [place] [address] CBC Collected: 10/01/2017 Status: F Source: [place] 11:52 PM [facility] REPOSITORY TYPE CODE TESTS RESULT OUT OF [...] BMP, MG1, PHOS #### [facility] [address] [id number] BASIC METABOLIC PANL Collected: 10/01/2017 Status: F Source: [place] 11:52 PM [facility] REPOSITORY TYPE CODE TESTS RESULT OUT OF REFERENCE UNITS RANGE LAB GLU 74-99 mg/dL High Glucose 143 Result Comment: The [place] Diabetes Association (ADA) provides guidance for cutoff [...] Standards of Medical Care in Diabetes 2016, [place] [employer]. Diabetes Care. 2016.39(Suppl 1). LAB [...] BMP, MG1, PHOS #### [facility] [address], [place] [address] MAGNESIUM Collected: 10/01/2017 Status: F Source: [place] 11:52 PM [facility] REPOSITORY TYPE CODE TESTS RESULT OUT OF REFERENCE UNITS RANGE LAB MG 1.7-2.3 mg/dL Magnesium 2.0 Performed By: #### PT, CBC, BMP, MG1, PHOS #### [facility] [address] [place], [place] [address] PHOSPHORUS Collected: 10/01/2017 Status: F Source: [place] 11:52 PM [facility] REPOSITORY TYPE CODE TESTS RESULT OUT OF REFERENCE UNITS RANGE LAB PHOS 2.7-4.8 mg/dL Phosphorus 3.1 Performed By: #### PT, CBC, BMP, MG1, PHOS #### [facility] [address] [place], [place] [address] Observed: 10/01/2017 Status: F Source: [place] URINE CULTURE 10:50 PM [facility] REPOSITORY Sp. Request/Comment: - Specimen received in preservative Culture Result - 10,000 - <50,000 CFU/ml Three or more organisms, no one type predominant, suggesting contamination during collection. Recollect if clinically indicated. Performed By: #### URCUL #### [facility] [address] [place], [place] [address] URINALYSIS Collected: 10/01/2017 Status: F Source: [place] 9:52 AM [facility] REPOSITORY TYPE CODE TESTS RESULT OUT OF RANGE REFERENCE UNITS LAB UCOL Yellow Color Yellow LAB [facility] Clear Clarity Abnormal Cloudy Alert LAB UGLUC Negative mg/dL Glucose, Urine Negative LAB UBIL Negative Bilirubin, Urine Negative LAB UKET Negative Ketones, Urine Negative LAB [facility] 1.005-1.030 Specific [place], Ur 1.019 LAB UHGB Negative Abnormal Hemoglobin/Blood, [...] By: #### UA #### [facility] [place], [place] [address] CONSULT PROG Observed: 10/01/2017 Status: COMPLETED Source: [place] 8:22 AM [facility] REPOSITORY HNO ID: [id number] Author: Darcie Choi MD Service: Vascular Medicine [...] mild hematuria last time she went to pee. No other hemoptysis She still feels short [...] 01, 2017 TIME: 8:22 AM PAGER/CONTACT #: [phone] . Staff addendum: I interviewed and examined [...] Staff PROGRESS Observed: 10/01/2017 Status: COMPLETED Source: [place] 8:21 AM [facility] REPOSITORY HNO ID: [id number] Author: Coy Lambert Service: Critical Care Author Type: Physician Type: Progress Notes Filed: 10/01/2017 10:24 AM Note Text: [facility] MICU/CRITICAL CARE DAILY PROGRESS NOTE Please [...] found to be positive for lupus anticoagulant, mvij-y9-kflgwftieews, and anti-cardiolipin antibodies for which she gets [...] triple positive with + lupus anticoagulant, + wqjp-u1-hyzbslgjwhen, and + anti-cardiolipin antibodies, she is on [...] 01, 2017 TIME: 8:22 AM PAGER/CONTACT #: [phone] [facility] STAFF PHYSICIAN NOTE OF PERSONAL INVOLVEMENT IN [...] of care,? medical plan for the day, operational risk consultant recommendations, medical disposition and current medical [...] INSTITUTE PROTIME Collected: 10/01/2017 Status: F Source: [place] 12:26 AM [facility] REPOSITORY TYPE CODE TESTS RESULT OUT OF RANGE REFERENCE UNITS LAB PSEC 9.7-13.0 sec High PT Sec 15.1 LAB INR 0.9-1.3 High PT INR 1.5 Result Comment: Vitamin K Antagonist (VKA) Therapeutic Range: INR 2 to 3 (Target INR of 2.5) Note: For patients treated with VKA drugs, such as warfarin, the [place]icians 2012 Guideline recommends [...] Chest 2012, 141:7S-47S Diogenes RA, et al. [facility] 2017, 70: 252-289 Performed By: #### PT, CBC, BMP #### [facility] [address] [place], [place] [address] CBC Collected: 10/01/2017 Status: F Source: [place] 12:26 AM [facility] REPOSITORY TYPE CODE TESTS RESULT OUT OF [...] PT, CBC, BMP #### [facility] [address] [place], [place] [address] BASIC METABOLIC PANL Collected: 10/01/2017 Status: F Source: [place] 12:26 AM [facility] REPOSITORY TYPE CODE TESTS RESULT OUT OF REFERENCE UNITS RANGE LAB GLU 74-99 mg/dL Glucose 98 Result Comment: The [place] Diabetes Association (ADA) provides guidance for cutoff [...] Standards of Medical Care in Diabetes 2016, [place] [employer]. Diabetes Care. 2016.39(Suppl 1). LAB [...] PT, CBC, BMP #### [facility] [address] [place], [place] [address] CONSULT Observed: 09/30/2017 Status: COMPLETED Source: [place] 3:19 PM [facility] REPOSITORY HNO ID: [id number] Author: Michelle Randhawa (Fel) Service: Hematology/Oncology Author Type: Fellow Type: Consults Filed: 09/30/2017 3:19 PM Note Text: Please see consult note. Michelle Randhawa MD Hematology and Oncology Fellow Pager: [phone] September 30, 2017 3:19 PM CONSULT Observed: 09/30/2017 Status: COMPLETED Source: [place] 2:59 PM [facility] REPOSITORY HNO ID: [id number] Author: Tanner Lakhani Service: Hematology/Oncology Author Type: Physician Type: Consults Filed: 09/30/2017 3:49 PM Note Text: Name: Paloma Cannon Age/Sex: 27 y/o F Bed-space: [place] [address] Reason for Consult: H/o APS Context of [...] Randhawa MD Hematology and Oncology Fellow Pager: [phone] September 30, 2017 3:18 PM [facility] STAFF PHYSICIAN NOTE OF PERSONAL INVOLVEMENT IN [...] Monday. Tanner Lakhani MD Staff Hematology Pager [phone] Date of Service: 09/30/2017 Time of Service: 3:49 PM PROGRESS Observed: 09/30/2017 Status: COMPLETED Source: [place] 1:21 PM [facility] [place] REPOSITORY HNO ID: [id number] Author: Niharika Laird MD Service: Critical Care [...] found to be positive for lupus anticoagulant, xsgb-z6-idqajguvuekw, and anti-cardiolipin antibodies for which she gets [...] triple positive with + lupus anticoagulant, + ainp-p5-wpaqjmljhifd, and + anti-cardiolipin antibodies, she is on [...] 30, 2017 TIME: 1:21 PM PAGER/CONTACT #: [phone] PROTIME Collected: 09/30/2017 Status: F Source: [place] 12:39 PM [facility] REPOSITORY TYPE CODE TESTS RESULT OUT OF RANGE REFERENCE UNITS LAB PSEC 9.7-13.0 sec High PT Sec 18.5 LAB INR 0.9-1.3 High PT INR 1.9 Result Comment: Vitamin K Antagonist (VKA) Therapeutic Range: INR 2 to 3 (Target INR of 2.5) Note: For patients treated with VKA drugs, such as warfarin, the [employer]icians 2012 Guideline recommends [...] Chest 2012, 141:7S-47S Diogenes RA, et al. [facility] 2017, 70: 252-289 Performed By: #### PT #### [facility] [address] [place] [address] NUTRITION Observed: 09/30/2017 Status: COMPLETED Source: [place] 10:52 AM [facility] REPOSITORY HNO ID: [id number] Author: Camilla SanchezDiet-T) Rebeca Service: Nutrition Therapy Author Type: Machine Feeder Raw Stock Type: Nutrition Filed: 09/30/2017 10:53 AM Note [...] September 30, 2017 TIME: 10:52 AM PAGER: PROGRESS Observed: 09/30/2017 Status: COMPLETED Source: [place] 10:22 AM [facility] REPOSITORY [facility] ID: [id number] Author: Coy Lambert Service: Pulmonary Disease Author Type: Physician Type: Progress Notes Filed: 09/30/2017 10:39 AM Note Text: [facility] NOTE OF PERSONAL INVOLVEMENT IN [...] of care, medical plan for the day, operational risk consultant recommendations, medical disposition and current medical [...] INSTITUTE CONSULT Observed: 09/30/2017 Status: COMPLETED Source: [place] 9:52 AM [facility] REPOSITORY O ID: [id number] Author: Darcie Choi MD Service: Vascular Medicine [...] Acute on chronic respiratory failure with hypoxia ([facility]) ?- Primary J96.21Pulmonary HTN I27.20SIRS (systemic inflammatory response syndrome) ([facility]) R65.10 cyclophosphamide (CYTOXAN) 50 mg capsule Take [...] (FLONASE) 50 mcg/actuation nasal spray Use 1 [place] in each nostril once daily. senna 8.6 [...] with urination: N/A Blood in urine: No FRUIT THINNER: Abnormal vaginal bleeding: No History of loss: [...] 30, 2017 TIME: 1:45 PM PAGER/CONTACT #: [phone] . Staff addendum: I interviewed and examined [...] Staff CBC Collected: 09/30/2017 Status: F Source: [place] 8:37 AM [facility] REPOSITORY TYPE CODE TESTS RESULT OUT OF [...] By: #### CBC #### [facility] [address] [place], [place] [address] CBC AND DIFFERENTIAL Collected: 09/29/2017 Status: F Source: [place] 11:47 PM [facility] REPOSITORY TYPE CODE [...] Abs 0.14 Low Lymph LAB AMONO % Hughes% 6.1 LAB AAMONO <0.87 k/uL Abs 0.32 Hughes LAB AEOS % 2.8 Eosin% LAB AAEOS <0.46 k/uL Abs 0.15 Eosin LAB ABASO % Baso% 0.4 LAB AABASO <0.11 k/uL Abs <0.03 Baso LAB AUNRBC 0 /100 WBC NRBCs 0.0 LAB ABNRBC <0.01 k/uL <0.01 Absolute nRBC LAB DTYP DTYPE Auto Diff Performed By: #### CBCDIF, CMP, MG1, PHOS #### [facility] [address] [place], [place] [address] COMP METABOLIC PANEL Collected: 09/29/2017 Status: F Source: [place] 11:47 PM [facility] REPOSITORY TYPE CODE TESTS RESULT [...] mg/dL Glucose High 116 Result Comment: The [place] Diabetes Association (ADA) provides guidance for cutoff [...] Standards of Medical Care in Diabetes 2016, [place] Diabetes Association. Diabetes Care. 2016.39(Suppl 1). LAB [...] CMP, MG1, PHOS #### [facility] [address] [address] MAGNESIUM Collected: 09/29/2017 Status: F Source: [place] 11:47 PM [facility] REPOSITORY TYPE CODE TESTS RESULT OUT OF REFERENCE UNITS RANGE LAB MG 1.7-2.3 mg/dL Magnesium 1.8 Performed By: #### CBCDIF, CMP, MG1, PHOS #### [facility] [address] [address] PHOSPHORUS Collected: 09/29/2017 Status: F Source: [place] 11:47 PM [facility] REPOSITORY TYPE CODE TESTS RESULT OUT OF REFERENCE UNITS RANGE LAB PHOS 2.7-4.8 mg/dL Phosphorus 4.0 Performed By: #### CBCDIF, CMP, MG1, PHOS #### [facility] [address] [address] HISTORY PHYSICAL Observed: 09/29/2017 Status: COMPLETED Source: [place] 11:23 PM [facility] REPOSITORY HNO ID: [id number] Author: Austen Choudhury Service: Critical Care Author Type: Physician Type: HANDP Filed: 09/29/2017 11:42 PM Note Text: [facility] NOTE OF PERSONAL INVOLVEMENT IN [...] with antiphospholipid syndrome (+ lupus anticoagulant, + zeqo-q8-mqyjlepsecpd, and + anti-cardiolipin antibodies) on plasmapheresis since 2014, cyclophosphamide, warfarin and prednisone with recurrent diffuse [...] minutes. SIGNATURE: Austen Choudhury MD [facility] PAGER:[phone] DATE of SERVICE: September 29, 2017 ED NOTE Observed: 09/29/2017 Status: COMPLETED Source: [place] 10:10 PM [facility] REPOSITORY [facility]NO ID: [id number] Author: Irasema Sauer) JEFF Zaragoza Service: Emergency Medicine Author Type: Registered Nurse Type: ED Notes Filed: 09/29/2017 10:16 PM Note Text: Report given to JEFF Armenta. 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 Bivalirudin to Warfarin bridging - HIT (heparin-induced thrombocytopenia) ([facility]) - Nontoxic multinodular goiter - Obese [...] (BACTRIM DS,SEPTRA DS) 1 tablet ORAL - [START ON 09/30/2017] warfarin 2.5 mg tab(s) [...] found to be positive for lupus anticoagulant, zzcn-r0-plcgrtamnscs, and anti-cardiolipin antibodies for which she gets [...] triple positive with + lupus anticoagulant, + zdjc-q1-tzqvqebrvcge, and + anti-cardiolipin antibodies, she is on [...] No Ernie Klein MD Internal Medicine- PGY3 Pager:[phone] September 29, 2017 10:04 PM ED NOTE Observed: 09/29/2017 Status: COMPLETED Source: [place] 9:30 PM [facility] REPOSITORY HNO ID: [id number] Author: Irasema (Rn) JEFF Zaragoza Service: Emergency Medicine Author Type: Registered Nurse Type: ED Notes Filed: 09/29/2017 10:17 PM Note Text: Pt sitting in bed with a snack. No complaints at this time. Denies sob and chest pain. NAD noted. Will continue to monitor. PROGRESS Observed: 09/29/2017 Status: COMPLETED Source: [place] 6:17 PM [facility] REPOSITORY HNO ID: [id number] Author: Sue Bah (Rt) Service: Radiology Author Type: Kapok [employer] Machine Operator Type: Progress Notes Filed: 09/29/2017 6:17 PM [...] PROV NOTE Observed: 09/29/2017 Status: COMPLETED Source: [place] 6:12 PM [facility] REPOSITORY HNO ID: [id number] Author: Fany Shine MD Service: Emergency Medicine [...] nephrotoxic agents - DVT (deep venous thrombosis) ([facility]) - Elevated CA-125 11/30/2013 244 - Essential hypertension 10/08/2015 Stable on home medications Plan: -continue to monitor on home meds - 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 Bivalirudin to Warfarin bridging - HIT (heparin-induced thrombocytopenia) ([facility]) - Nontoxic multinodular goiter - Obese [...] disposition: stable SIGNATURE: MD Harvinder Ngo (Res) [place] Resident 09/29/17 [phone] Harvinder Kang (Res) [place] Resident 09/29/17 [id number] Attending Note I evaluated the patient and [...] ED NOTE Observed: 09/29/2017 Status: COMPLETED Source: [place] 6:07 PM [facility] REPOSITORY HNO ID: [id number] Author: Irasema (Rn) JEFF Zaragoza Service: Emergency Medicine Author Type: Registered Nurse Type: ED Notes Filed: 09/29/2017 6:07 PM Note Text: Labs were drawn and sent. CBC AND DIFFERENTIAL Collected: 09/29/2017 Status: F Source: [place] 6:04 PM [facility] REPOSITORY TYPE CODE TESTS RESULT OUT OF [...] Abs 0.14 Low Lymph LAB AMONO % Hughes% 6.9 LAB AAMONO <0.87 k/uL Abs 0.45 Hughes LAB AEOS % 2.8 Eosin% LAB AAEOS <0.46 k/uL Abs 0.18 Eosin LAB ABASO % Baso% 0.6 LAB AABASO <0.11 k/uL Abs 0.04 Baso LAB AUNRBC 0 /100 WBC NRBCs 0.0 LAB ABNRBC <0.01 k/uL <0.01 Absolute nRBC LAB DTYP DTYPE Auto Diff Performed By: #### CBCDIF, CMP, MG1 #### [facility] [address] [place], [place] [address] COMP METABOLIC PANEL Collected: 09/29/2017 Status: F Source: [place] 6:04 PM [facility] REPOSITORY TYPE CODE [...] 74-99 mg/dL Glucose 74 Result Comment: The [place] Diabetes Association (ADA) provides guidance for cutoff [...] Standards of Medical Care in Diabetes 2016, [place] Diabetes Association. Diabetes Care. 2016.39(Suppl 1). LAB [...] CBCDIF, CMP, MG1 #### [facility] [address] [place], [place] [address] MAGNESIUM Collected: 09/29/2017 Status: F Source: [place] 6:04 PM [facility] REPOSITORY TYPE CODE TESTS RESULT OUT OF REFERENCE UNITS RANGE LAB MG 1.7-2.3 mg/dL Magnesium 1.7 Performed By: #### CBCDIF, CMP, MG1 #### [facility] [address] [place], [place] [address] PROTIME Collected: 09/29/2017 Status: F Source: [place] 6:04 PM [facility] REPOSITORY TYPE CODE TESTS RESULT OUT OF RANGE REFERENCE UNITS LAB PSEC 9.7-13.0 sec High PT Sec 20.3 LAB INR 0.9-1.3 High PT INR 2.1 Result Comment: Vitamin K Antagonist (VKA) Therapeutic Range: INR 2 to 3 (Target INR of 2.5) Note: For patients treated with VKA drugs, such as warfarin, the [place] College of [employer]icians 2012 Guideline recommends [...] Chest 2012, 141:7S-47S Diogenes RA, et al. [facility] 2017, 70: 252-289 Performed By: #### PT, PTT #### [facility] [address] [place], [place] [address] APTT Collected: 09/29/2017 Status: F Source: [place] 6:04 PM [facility] REPOSITORY TYPE CODE TESTS RESULT OUT OF [...] laboratory APTT reagent in use throughout the [facility]. Performed By: #### PT, PTT #### [facility] [address] [place], [place] [address] TYPE AND SCREEN Collected: 09/29/2017 Status: F Source: [place] 6:04 PM [facility] [place] REPOSITORY TYPE CODE TESTS RESULT OUT OF REFERENCE UNITS RANGE LAB %ABR B ABO/RH(D) POSITIVE LAB % Antibody POS Screen Performed By: #### TSCR #### [facility] [address] [place], [place] [address] XR CHEST 1V FRONTAL Observed: 09/29/2017 Status: F Source: [facility] 5:50 PM [facility] [place] REPOSITORY * * *Final Report* * * [...] unremarkable. Other: Osseous structures are grossly unremarkable. Pie Topper: PSCGaudencio Transcribe Date/Time: Sep 29 2017 6:23P Dictated by : ASHLIE ROSAS MD This examination was interpreted and the report reviewed and electronically signed by: NAVI LOWERY MD on Sep 29 2017 6:31PM EST [id number] ED NOTE Observed: 09/29/2017 Status: COMPLETED Source: [place] 5:40 PM [facility] [place] REPOSITORY HNO ID: [id number] Author: Irasema Sauer) JEFF Zaragoza Service: Emergency [...] ED NOTE Observed: 09/29/2017 Status: COMPLETED Source: [place] 5:38 PM [facility] REPOSITORY HNO ID: [id number] Author: Christin Lea Service: Emergency Medicine Author [...] ED NOTE Observed: 09/29/2017 Status: COMPLETED Source: [place] 5:36 PM [facility] REPOSITORY HNO ID: [id number] Author: ROXY Peters (Ct) Service: Emergency Medicine Author Type: Clinical [employer] Machine Operator Type: ED Notes Filed: 09/29/2017 5:37 PM Note Text: EKG OBTAINED IN INTAKE UPON ARRIVAL. ED NOTE Observed: 09/29/2017 Status: COMPLETED Source: [place] 5:27 PM [facility] REPOSITORY [facility]NO ID: [id number] Author: ROXY Peters (Ct) Service: Emergency Medicine Author Type: Clinical [employer] Machine Operator Type: ED Notes Filed: 09/29/2017 5:27 PM Note Text: EKG OBTAINED IN INTAKE UPON ARRIVAL. ED TRIAGE NOTE Observed: 09/29/2017 Status: COMPLETED Source: [place] 5:24 PM [facility] REPOSITORY HNO ID: [id number] Author: CY Byrnes (Pa) Service: Emergency Medicine Author Type: Physician Farm Management Agent Type: ED Triage Notes Filed: 09/29/2017 5:26 [...] ED NOTE Observed: 09/29/2017 Status: COMPLETED Source: [place] 5:20 PM [facility] REPOSITORY HNO ID: [id number] Author: Angella SanchezRn) JEFF Faria Service: Emergency [...] TIME W/INR Collected: 09/29/2017 Status: F Source: [place] 8:00 AM [facility] REPOSITORY Order Comment: MEDOUT/PORT DRAW TYPE CODE TESTS RESULT OUT OF RANGE REFERENCE UNITS LAB L300.4150 11.7-14.9 SECONDS High PROTIME 23.1 LAB L300.4200 Normal INR 2.0 Performed By: #### L300.3900 #### [facility] [address] [place], [address] PROGRESS Observed: 09/27/2017 Status: COMPLETED Source: [place] 4:08 PM [facility] REPOSITORY HNO ID: [id number] Author: Dominique Wright Service: (none) Author Type: [...] (FLONASE) 50 mcg/actuation nasal spray Use 1 [place] in each nostril once daily. pantoprazole DR [...] p.m. PROGRESS Observed: 09/27/2017 Status: COMPLETED Source: [place] 3:48 PM [facility] REPOSITORY HNO ID: [id number] Author: Devi SanchezRn) JEFF Fernandes Service: (none) Author Type: Registered Nurse Type: Progress Notes Filed: 09/27/2017 5:00 PM Note Text: Sterile dressing change completed on apheresis catheter and PICC catheter sites. Sterile cap change of PICC line performed. No complications. Devi Fernandes RN CNOV Observed: 09/27/2017 Status: COMPLETED Source: [place] 3:45 PM [facility] REPOSITORY Office Visit (INFDMN) DAVISPALOMA M ([id number]) 1990 F PTR Date Time Provider Department 09/27/17 3:45 PM DOMINIQUE WRIGHT [facility] During your visit today, we recorded the [...] (FLONASE) 50 mcg/actuation nasal spray Use 1 [place] in each nostril once daily. pantoprazole DR [...] * FLUTICASONE 50 MCG/ACTUATION * Use 1 [place] in each nostril o* PANTOPRAZOLE 40 MG [...] 09/27/17 CNOVSP Observed: 09/27/2017 Status: COMPLETED Source: [place] 3:00 PM [facility] REPOSITORY Visit (SP) Office ([facility]) [place] ([id number]) 1990 F PTR Date Time Provider Department 09/27/17 3:00 PM APHERESIS DAREK [facility] During your visit today, we [...] Fully Assessed Primary Visit Diagnosis:APS (antiphospholipid syndrome) ([facility]) [D68.61] Prescriptions as of 09/27/2017 Sig: [...] * FLUTICASONE 50 MCG/ACTUATION * Use 1 [place] in each nostril o* PANTOPRAZOLE 40 MG [...] TIME W/INR Collected: 09/22/2017 Status: F Source: [place] 8:05 AM [facility] REPOSITORY Order Comment: MEDOUT/PORT DRAW TYPE CODE TESTS RESULT OUT OF RANGE REFERENCE UNITS LAB L300.4150 11.7-14.9 SECONDS High PROTIME 19.4 LAB L300.4200 Normal INR 1.6 Performed By: #### L300.3900 #### [facility] [address] [place], [address] PROGRESS Observed: 09/18/2017 Status: COMPLETED Source: [place] 1:57 PM [facility] REPOSITORY HNO ID: [id number] Author: Elsa Mello (Coord) Service: (none) Author Type: Painting Department Supervisor Type: Progress Notes Filed: 09/18/2017 1:57 PM Note Text: Patient had appointments today at [facility]. I provided a parking pass. Adriana Mello Patient Account Executive [employer] [facility] [phone] / [phone] PROGRESS Observed: 09/18/2017 Status: COMPLETED Source: [place] 1:13 PM [facility] REPOSITORY HNO ID: [id number] Author: Lisseth Claudio MD Service: (none) Author [...] left and blue port Medications given: See [facility] audit report. Volume treated: 6505 ml whole [...] treatment: 10/02/2017 Signed by: Devi Fernandes RN [facility] NOTE OF PERSONAL INVOLVEMENT IN [...] MD September 18, 2017 3:29 PM Pager: [phone] CBC AND DIFFERENTIAL Collected: 09/18/2017 Status: F Source: [place] 12:36 PM [facility] REPOSITORY TYPE CODE [...] Abs 0.31 Low Lymph LAB AMONO % Hughes% 6.3 LAB AAMONO <0.87 k/uL Abs 0.36 Hughes LAB AEOS % 3.0 Eosin% LAB AAEOS <0.46 k/uL Abs 0.17 Eosin LAB ABASO % Baso% 0.7 LAB AABASO <0.11 k/uL Abs 0.04 Baso LAB AUNRBC 0 /100 WBC NRBCs 0.0 LAB ABNRBC <0.01 k/uL <0.01 Absolute nRBC LAB DTYP DTYPE Auto Diff Performed By: #### CBCDIF, CMP #### [facility] [address] [place] [id number] COMP METABOLIC PANEL Collected: 09/18/2017 Status: F Source: [place] 12:36 PM [facility] REPOSITORY TYPE CODE TESTS RESULT OUT OF REFERENCE UNITS RANGE LAB TP 6.3-8.0 g/dL Low Protein, Total 5.8 LAB ALB 3.9-4.9 g/dL Low Albumin 3.6 LAB CA 8.5-10.2 mg/dL Calcium, Total 8.8 LAB TBIL 0.2-1.3 mg/dL Bilirubin, Total 0.6 LAB ALKP 32-117 U/L Alkaline Phosphatase 58 LAB AST 13-35 U/L AST 20 LAB GLU 74-99 mg/dL Glucose 99 Result Comment: The [place] Diabetes Association (ADA) provides guidance for cutoff [...] Standards of Medical Care in Diabetes 2016, [place] Diabetes [employer]. Diabetes Care. 2016.39(Suppl 1). LAB [...] #### CBCDIF, CMP #### [facility] [address] [id number] FACTOR VIII:C ASSAY Collected: 09/18/2017 Status: F Source: [place] 12:36 PM [facility] REPOSITORY TYPE CODE TESTS RESULT [...] #### FVIIIC, LUPUSP #### [facility] [address] [place], [place] [address] LUPUS ANTICOAG PANEL Collected: 09/18/2017 Status: F Source: [place] 12:36 PM [facility] REPOSITORY TYPE CODE TESTS RESULT OUT OF RANGE REFERENCE UNITS LAB PSEC 9.7-13.0 sec High PT Sec 14.6 LAB INR 0.9-1.3 High PT INR 1.4 Result Comment: Vitamin K Antagonist (VKA) Therapeutic Range: INR 2 to 3 (Target INR of 2.5) Note: For patients treated with VKA drugs, such as warfarin, the [place] [employer] of [employer]icians 2012 Guideline recommends [...] Chest 2012, 141:7S-47S Diogenes RESENDIZ et al. [facility] 2017, 70: 252-289 LAB APTT [...] laboratory APTT reagent in use throughout the [facility]. LAB PLTNEU Negative Abnormal Alert PNP Positive [...] The following results were obtained with the [employer] QUANTA Lite JOESPH IgG III JESSICA. Cardiolipin [...] to an endpoint titer. Performed By: #### FVIIIJosephine, LUPUSTila #### [facility] [address] [place], [place] [address] CNOVSP Observed: 09/18/2017 Status: COMPLETED Source: [place] 12:00 PM [facility] REPOSITORY Visit (SP) Office ([facility]) [place] ([id number]) 1990 F PTR Date Time Provider Department 09/18/17 12:00 PM [facility] During your visit today, we recorded the [...] left and blue port Medications given: See [facility] audit report. Volume treated: 6505 ml whole [...] treatment: 10/02/2017 Signed by: Devi Fernandes RN [facility] NOTE OF PERSONAL INVOLVEMENT IN [...] MD September 18, 2017 3:29 PM Pager: [phone] Referring Provider: LISSETH CLAUDIO [[id number]] Allergies As of Date: 09/18/2017 Noted Allergy [...] enzymes Date Reviewed: 09/18/2017 Reviewed by: Devi Sauer) JEFF Fernandes - Fully Assessed Reason for Visit: Plasmapheresis [1323] Primary Visit Diagnosis:APS (antiphospholipid syndrome) ([facility]) [D68.61] Order(s):LUPUS ANTICOAG PL [SQLUPUSP] Order #: [id number]. #:[id number] CBC + DIFF [SQCBCDIF] Order #: [id number]. #:[id number] COMP METABOLIC PANEL [SQCMP] Order #: [id number]. #:[id number] [facility] NURSING COMMUNICATION [[id number]] Order #: [id number]: 1 TREATMENT PARAMETERS [[id number]] Order #: [id number]: 1 [facility] NURSING COMMUNICATION [[id number]] Order #: [id number]: 1 STANDING [] diphenhydrAMINE 50 mg injection [...] * FLUTICASONE 50 MCG/ACTUATION * Use 1 [place] in each nostril o* PANTOPRAZOLE 40 MG [...] 09/18/17 HOSP Observed: 09/18/2017 Status: COMPLETED Source: [place] 12:00 AM [facility] REPOSITORY Patient Update ([facility]) [place] ([id number]) 1990 F PTR Date Time Provider Department 09/18/17 ELSA MELLO (COORD) [facility] During your visit today, we recorded the following information about you: Carpi Sandhu 09/18/2017 1:57 PM Signed Patient had appointments today at [facility]. I provided a parking pass. Adriana Mello Patient Account [employer] [facility] [phone] / [phone] Allergies As of Date: 09/18/2017 [...] * FLUTICASONE 50 MCG/ACTUATION * Use 1 [place] in each nostril o* PANTOPRAZOLE 40 MG [...] Encounter Status:Closed by ELSA MELLO on 09/18/17 ELLIOTTN Observed: 09/18/2017 Status: COMPLETED Source: [place] 12:00 AM [facility] REPOSITORY Telephone (PERN) [place] ([id number]) 1990 F [facility] Date Time Provider Department 09/18/17 MAGDALENA PARMAR (ELLIOTT) [facility] During your visit today, we recorded the [...] * FLUTICASONE 50 MCG/ACTUATION * Use 1 [place] in each nostril o* PANTOPRAZOLE 40 MG [...] TIME W/INR Collected: 09/15/2017 Status: F Source: [place] 8:00 AM [facility] REPOSITORY TYPE CODE TESTS RESULT OUT OF RANGE REFERENCE UNITS LAB L300.4150 11.7-14.9 SECONDS High PROTIME 24.5 LAB L300.4200 Normal INR 2.2 Performed By: #### L300.3900 #### [facility] [address] [place], [place], [address] PROGRESS Observed: 09/12/2017 Status: COMPLETED Source: [place] 2:21 PM [facility] REPOSITORY HNO ID: [id number] Author: Geraldine Linares (Sw) Service: (none) Author Type: Painting Department Supervisor Type: Progress Notes Filed: 09/28/2017 10:39 AM Note Text: Erika met with patient to assess service needs in home and community. Patient has interest in therapy dog and in home care assistance. Erika discussed applying to [place] Medicaid Home Care Waiver. Patient signed home care waiver referral form. Waiver could assist with Emergency Response system, home adaptive medical equipment, home delivered meals, and health care sanitary technician to assist with coordinating health care needs. [...] care. PROGRESS Observed: 09/12/2017 Status: COMPLETED Source: [place] 8:14 AM [facility] REPOSITORY HNO ID: [id number] Author: Akhil Howard Service: (none) Author Type: [...] Clostridium difficile colitis. Patient was admitted to [facility] on 08/25 for a 12 day admission. [...] at night. Follow up appointment yesterday with plastics patternmaker showing a 75% lung improvement. Complaints today [...] condenser for travel and long trips to [facility]. Requiring wheelchair for extended travel. Previous wheelchair [...] (FLONASE) 50 mcg/actuation nasal spray Use 1 [place] in each nostril once daily. pantoprazole DR [...] 3 additional months. Managed by oncology/hematology at [facility] main - COMPOUNDED PRESCRIPTION- O2 condenser - STANDARD WHEELCHAIR - Follow up as scheduled in 2 months farm forestry and garden workers, Geraldine Linares, Met with patient and to discuss out patient resources and to investigate service dog/animal for depressive symptoms. Prescription instructions reviewed with patient as applicable. Potential red flag symptoms discussed with the patient. Reviewed appropriate action plan to take if red flag symptoms occur. Patient agreeable to treatment plan. Akhil Howard CNP CNOV Observed: 09/12/2017 Status: COMPLETED Source: [place] 8:00 AM [facility] REPOSITORY Office Visit (INTMWS) PALOMA CANNON ([id number]) 1990 F PTR Date Time Provider Department 09/12/17 8:00 AM [...] Clostridium difficile colitis. Patient was admitted to [facility] on 08/25 for a 12 day admission. [...] at night. Follow up appointment yesterday with plastics patternmaker showing a 75% lung improvement. Complaints today [...] condenser for travel and long trips to [facility]. Requiring wheelchair for extended travel. Previous wheelchair [...] to Warfarin bridging - HIT (heparin-induced thrombocytopenia) ([facility]) - Nontoxic multinodular goiter - Obese [...] (FLONASE) 50 mcg/actuation nasal spray Use 1 [place] in each nostril once daily. pantoprazole DR [...] 3 additional months. Managed by oncology/hematology at [facility] main - COMPOUNDED PRESCRIPTION- O2 condenser - STANDARD WHEELCHAIR - Follow up as scheduled in 2 months farm forestry and garden workers, Geraldine Linares, Met with patient and to [...] for Nausea/Vomiting.Disp: 40 tabletRfl: 3 STANDARD WHEELCHAIR [[id number]] Order #: [id number] gabapentin (NEURONTIN) 300 mg capsuleTake 600mg in [...] * FLUTICASONE 50 MCG/ACTUATION * Use 1 [place] in each nostril o* PANTOPRAZOLE 40 MG [...] Status:Closed by AKHIL HOWARD CNP on 09/12/17 LIZETW Observed: 09/12/2017 Status: COMPLETED Source: [place] 12:00 AM [facility] REPOSITORY Listiki Work (AWILDA) PALOMA CANNON ([id number]) 1990 F PTR Date Time Provider Department 09/12/17 GERALDINE LINARES (SW) During your visit today, we recorded the [...] adaptive medical equipment, home delivered meals, and health care sanitary technician to assist with coordinating health care needs. [...] * FLUTICASONE 50 MCG/ACTUATION * Use 1 [place] in each nostril o* PANTOPRAZOLE 40 MG [...] 09/28/17 URINALYSIS Collected: 09/11/2017 Status: F Source: [place] 1:36 PM [facility] REPOSITORY TYPE CODE TESTS RESULT OUT OF RANGE REFERENCE UNITS LAB UCOL Yellow Color Yellow LAB [facility] Clear Clarity Abnormal Cloudy Alert LAB UGLUC Negative mg/dL Glucose, Urine Negative LAB UBIL Negative Bilirubin, Urine Negative LAB UKET Negative Ketones, Urine Negative LAB USPG 1.005-1.030 Specific [place], Ur 1.020 LAB UHGB Negative Hemoglobin/Blood, Negative [...] By: #### UA #### [facility] [address] [place], [place] [address] COMP METABOLIC PANEL Collected: 09/11/2017 Status: F Source: [place] 12:04 PM [facility] REPOSITORY TYPE CODE TESTS RESULT OUT OF REFERENCE UNITS RANGE LAB TP 6.3-8.0 g/dL Low Protein, Total 6.2 LAB ALB 3.9-4.9 g/dL Albumin 4.1 LAB CA 8.5-10.2 mg/dL Calcium, Total 8.8 LAB TBIL 0.2-1.3 mg/dL Bilirubin, Total 0.4 LAB ALKP 32-117 U/L Alkaline Phosphatase 50 LAB AST 13-35 U/L AST 16 LAB GLU 74-99 mg/dL Glucose High 134 Result Comment: The [place] Diabetes Association (ADA) provides guidance for cutoff [...] Standards of Medical Care in Diabetes 2016, [place] Diabetes Association. Diabetes Care. 2016.39(Suppl 1). LAB [...] CMP, CRP, WSR #### [facility] [address] [place] [address] C-REACTIVE PROTEIN Collected: 09/11/2017 Status: F Source: [place] 12:04 PM [facility] REPOSITORY TYPE CODE TESTS RESULT OUT OF REFERENCE UNITS RANGE LAB CRP <0.9 mg/dL C-Reactive 0.4 Protein Performed By: #### CMP, CRP, WSR #### [facility] [address] [place] [id number] SED RATE WESTERGREN Collected: 09/11/2017 Status: F Source: [place] 12:04 PM [facility] REPOSITORY TYPE CODE TESTS RESULT OUT OF REFERENCE UNITS RANGE LAB WSR 0-20 mm/hr Sed Rate Westergren 8 Performed By: #### CMP, CRP, WSR #### 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 She has been [...] Guillaume Alicea MD Referring Provider: GUILLAUME ALICEA [[id number]] Allergies As of Date: 09/11/2017 Noted Allergy [...] CONSULT TO PHYSICAL THERAPY [9032] Order #: [id number]: 1 XR CHEST 2V FRONTAL/LAT [[id number]] Order #: [id number] FUTURE COMP METABOLIC PANEL [SQCMP] Order #: [id number] FUTURE UA CHEMSTRIP ONLY [SQUA] Order #: [id number] FUTURE SED RATE WESTERGREN [SQWSR] Order #: [id number] FUTURE C-REACTIVE PROTEIN (CRP) [SQCRP] Order #: [id number] FUTURE predniSONE (DELTASONE) 5 mg tabletTake 1 [...] daily. FLUTICASONE 50 MCG/ACTUATION * Use 1 [place] in each nostril o* PANTOPRAZOLE 40 MG [...] AND DIFFERENTIAL Collected: 09/11/2017 Status: F Source: [place] 11:51 AM [facility] REPOSITORY TYPE CODE TESTS RESULT [...] Abs 0.36 Low Lymph LAB AMONO % Hughes% 4.4 LAB AAMONO <0.87 k/uL Abs 0.26 Hughes LAB AEOS % 1.8 Eosin% LAB AAEOS <0.46 k/uL Abs 0.11 Eosin LAB ABASO % Baso% 0.5 LAB AABASO <0.11 k/uL Abs 0.03 Baso LAB AUNRBC 0 /100 WBC NRBCs 0.0 LAB ABNRBC <0.01 k/uL <0.01 Absolute nRBC LAB DTYP DTYPE Auto Diff Performed By: #### CBCDIF #### [facility] [address] [place], [place] [address] PROGRESS Observed: 09/11/2017 Status: COMPLETED Source: [place] 11:09 [facility] [place] REPOSITORY HNO ID: [id number] Author: Guillaume Alicea Service: (none) Author Type: Physician Type: Progress Notes Filed: 09/11/2017 12:29 PM Note Text: SUBSEQUENT VISIT 27 year old never smoker being 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 This was diagnosed in '14 when she presented catastrophically with PE/DVT needing extensive percutaneous thrombectomy of her IVC and lower extremity veins followed by placement of B/L iliac venous stents and an endograft into her IVC and is triple positive with + lupus anticoagulant, + kdbk-q9-xevtchxaxamx, and + anti-cardiolipin antibodies. She has been [...] WO IVCON Observed: 09/11/2017 Status: F Source: [place] 9:56 AM [facility] REPOSITORY * * *Final Report* * * DATE OF EXAM: Sep 11 2017 9:56AM [facility] 0541 - CT CHEST WO IVCON / [...] nodular opacities probably infectious or aspiration induced. Pie Topper: MURTAZA Transcribe Date/Time: Sep 11 2017 11:15A Dictated by : BENJAMIN BLANCO MD This examination was interpreted and the report reviewed and electronically signed by: BENJAMIN BLANCO MD on Sep 11 2017 11:30AM EST [id number] PROGRESS Observed: 09/11/2017 Status: COMPLETED Source: [place] 9:47 AM [facility] REPOSITORY HNO ID: [id number] Author: ROXY Romero (Ct) Service: Radiology Author Type: Clinical Kapok And Cotton Machine Operator Type: Progress Notes Filed: 09/11/2017 9:58 AM [...] TIME W/INR Collected: 09/11/2017 Status: F Source: [place] 8:05 AM [facility] REPOSITORY Order Comment: MEDOUT/PORT DRAW TYPE CODE TESTS RESULT OUT OF RANGE REFERENCE UNITS LAB L300.4150 11.7-14.9 SECONDS High PROTIME 22.5 LAB L300.4200 Normal INR 2.0 Performed By: #### L300.3900 #### [facility] [address] [place], [address] CBC W/DIFF, AUTOMATED Collected: 09/11/2017 Status: F Source: [place] 8:05 AM [facility] REPOSITORY Order Comment: Comments: [facility], FAX TO [phone] TYPE CODE TESTS RESULT OUT OF RANGE [...] LARGE PLTS. Performed By: #### L100.0100 #### [facility] [address] [place], [address] HOSP Observed: 09/11/2017 Status: COMPLETED Source: [place] 12:00 AM [facility] REPOSITORY Patient Update (INFDMN) PALOMA CANNON ([id number]) 1990 F PTR Date Time Provider Department 09/11/17 [facility] During your visit today, we recorded the following information about you: Aleta Valdivia 09/11/2017 2:31 PM Signed Per orders of Dr.Koval chela luis. She is keeps the line for other reasons. Notified [facility] at [phone]. Spoke with Ursula. Aleta Valdivia Allergies As of Date: 09/11/2017 Noted Allergy [...] Fully Assessed Reason for Visit: Petrona Savage [[id number]] Prescriptions as of 09/11/2017 Sig: CYCLOPHOSPHAMIDE 50 [...] daily. FLUTICASONE 50 MCG/ACTUATION * Use 1 [place] in each nostril o* PANTOPRAZOLE 40 MG [...] [R*INVALID FOR* More... Visit Notes: >> Aleta Lamas Sec MonSep 11, 2017 2:30 PM Status: Signed Per orders of Dr.Koval chela luis. She is keeps the line for other reasons. Notified [facility] at [phone]. Spoke with Ursula. Aleta Lamas Audrey Encounter Status:Closed by KURT VALDIVIA ALETA on 09/11/17 PROTHROMBIN TIME W/INR Collected: 09/08/2017 Status: F Source: [place] 8:00 AM [facility] REPOSITORY Order Comment: MEDOUT/PORT DRAW TYPE CODE TESTS RESULT OUT OF RANGE REFERENCE UNITS LAB L300.4150 11.7-14.9 SECONDS High PROTIME 17.6 LAB L300.4200 Normal INR 1.4 Performed By: #### L300.3900 #### [facility] [address] [place], [address] PT ED Observed: 09/06/2017 Status: COMPLETED Source: [place] 2:09 PM [facility] REPOSITORY HNO ID: [id number] Author: Denise SanchezRn) Timo Huffman RN Service: (none) Author Type: Registered Nurse Type: Patient Education Filed: 09/06/2017 2:20 PM Note Text: PATIENT EDUCATION TOPIC: PATIENT INFORMATION: Discharge PATIENT NAME: Paloma Cannon PATIENT LOCATION: [place] [address] READINESS TO LEARN COGNITIVE ABILITY: Alert and [...] CASE MANAGEM Observed: 09/06/2017 Status: COMPLETED Source: [place] 2:09 PM [facility] REPOSITORY HNO ID: [id number] Author: Dary SanchezRn) JEFF Jimenes Service: Care Management Author Type: Registered Nurse Type: Care Mgt Progress Note Filed: 09/06/2017 2:24 PM Note Text: CARE MANAGEMENT DISCHARGE NOTE SERVICE DATE: 09/06/2017 SERVICE TIME: 2:16 PM LOS: 12 days Admission Date: 08/25/2017 DISCHARGE ARRANGEMENT (list agency and phone number) Home, Home care and Home care pharmacy Provider: [facility] [place], [place] and Surrounding Areas [facility] will provide nursing. P: [phone]. F: [phone] CAREGIVER ASSESSMENT: Caregiver is ready, willing and [...] received today's dose. [facility] SOC 09/07/2017 am, Apolinar will deliver IV abx to home tonight. Spouse, Morteza, has stated that he has done IV abx at home with patient in the past and is comfortable with this. Patient and spouse are agreeable to plan. BS RN to discuss DC instructions. SIGNATURE: Dary Jimenes RN PATIENT NAME: Paloma Cannon DATE: September 06, 2017 TIME: 2:16 PM PAGER/CONTACT #: [phone] CASE MANAGEM Observed: 09/06/2017 Status: COMPLETED Source: [place] 1:55 PM [facility] REPOSITORY HNO ID: [id number] Author: Renetta Villanueva Service: Care Management Author Type: (none) Type: Care Mgt Progress Note Filed: 09/06/2017 1:55 PM Note Text: CARE MANAGEMENT PROGRESS NOTE SERVICE DATE: 09/06/2017 SERVICE TIME: 1:54 PM LOS: 12 days IM letter given to patient on 09/06/17. SIGNATURE: Renetta Villanueva Baseball Inspector PATIENT NAME: Paloma Cannon DATE: September 06, 2017 TIME: 1:55 PM PAGER/CONTACT #: [phone] PLAN OF CARE Observed: 09/06/2017 Status: COMPLETED Source: [place] 1:46 PM [facility] REPOSITORY HNO ID: [id number] Author: Geraldine Lazar (DianDian) Service: (none) Author Type: (none) Type: Plan of Care Filed: 09/06/2017 1:47 PM Note Text: Pharmacy Discharge Medication Service: This patient has elected to receive their discharge prescriptions through the [facility] Bedside Prescription Delivery program. The prescriptions are currently being processed. A follow-up note will be entered once the prescriptions have been filled and delivered to the patient. Please contact me with any questions or updates to the patient's discharge medications. Geraldine Lazar (DianDian) DCT Contact Info: [id number] PROGRESS Observed: 09/06/2017 Status: COMPLETED Source: [place] 12:38 PM [facility] REPOSITORY HNO ID: [id number] Author: Ignacio Novak Service: Hospital Medicine Author Type: Physician Type: Progress Notes Filed: 09/06/2017 2:06 PM Note Text: Medicine [place] - Viupl Marie Progress Note PATIENT NAME: Paloma Cannon [...] ? Emelia Liu MD PGY-1 Internal Medicine [id number] September 06, 2017 12:39 PM [facility] ST[facility] PHYSICIAN NOTE OF PERSONAL INVOLVEMENT IN CARE I have reviewed the progress note obtained and documented by the resident and I personally participated in the fernadnes components. I have discussed the case and [...] as outpatient. SIGNATURE: Ignacio Novak MD PAGER: [phone] DATE of SERVICE: September 06, 2017 TIME of SERVICE: 2:05 PM CONSULT PROG Observed: 09/06/2017 Status: COMPLETED Source: [place] 11:07 AM [facility] REPOSITORY HNO ID: [id number] Author: Paulette Gooden (Chain Puller) Davonte Service: Vascular Medicine Author Type: Nurse [...] mg daily check INR on Monday at [facility] w/results faxed to [facility] (they have a standing order) Monday will get another INR and CBC to monitor platelet counts SIGNATURE: Paulette Naranjo CNP PATIENT NAME: Paloma Cannon DATE: September 06, 2017 TIME: 11:08 AM PAGER/CONTACT #: [phone] . PROCEDURE Observed: 09/06/2017 Status: COMPLETED Source: [place] 9:47 AM [facility] REPOSITORY HNO ID: [id number] Author: Lisseth Claudio MD Service: Apheresis Author [...] Completed by Apheresis Nurse: Lou Juarez RN [facility] PHYSICIAN NOTE OF PERSONAL INVOLVEMENT IN [...] MD September 06, 2017 2:08 PM Pager: [phone] NURSING PROG Observed: 09/06/2017 Status: COMPLETED Source: [place] 7:43 AM [facility] REPOSITORY HNO ID: [id number] Author: Denise (Rn) Timo Huffman RN Service: (none) Author Type: Registered Nurse Type: Nursing Progress Note Filed: 09/06/2017 2:25 PM Note Text: Nursing Progress Note Topic of Note: Daily Note Paloma Aiken Davis [id number] Patient sleeping in bed. Patient to have, [...] RN PROTIME Collected: 09/06/2017 Status: F Source: [place] 5:40 AM [facility] REPOSITORY TYPE CODE TESTS RESULT OUT OF RANGE REFERENCE UNITS LAB PSEC 9.7-13.0 sec High PT Sec 13.9 LAB INR 0.9-1.3 High PT INR 1.4 Result Comment: Vitamin K Antagonist (VKA) Therapeutic Range: INR 2 to 3 (Target INR of 2.5) Note: For patients treated with VKA drugs, such as warfarin, the [place] [employer]icians 2012 Guideline recommends [...] Chest 2012, 141:7S-47S Diogenes RA, et al. [facility] 2017, 70: 252-289 Performed By: #### PT, PTT, CK, CRET1, CBCDIF #### [facility] [address], [place] [address] APTT Collected: 09/06/2017 Status: F Source: [place] 5:40 AM [facility] [place] REPOSITORY TYPE CODE TESTS RESULT OUT OF [...] laboratory APTT reagent in use throughout the [facility]. Performed By: #### PT, PTT, CK, CRET1, CBCDIF #### [facility] [address] [address] [place], [place] [address] CK Collected: 09/06/2017 Status: F Source: [facility] 5:40 AM [facility] REPOSITORY TYPE CODE TESTS RESULT OUT OF RANGE REFERENCE UNITS LAB CK 42-196 U/L Low CK 15 Result Comment: Please note the updated, gender-specific reference range for this test (effective 06/23/2016). Performed By: #### PT, PTT, CK, CRET1, CBCDIF #### [facility] [address] [address] [place], [place] [address] CREATININE Collected: 09/06/2017 Status: F Source: [place] 5:40 AM [facility] REPOSITORY TYPE CODE TESTS RESULT OUT OF [...] CK, CRET1, CBCDIF #### [facility] [address] [place], [place] [address] CBC AND DIFFERENTIAL Collected: 09/06/2017 Status: F Source: [place] 5:40 AM [facility] REPOSITORY TYPE CODE TESTS RESULT OUT OF [...] Abs 0.35 Low Lymph LAB AMONO % Hughes% 8.9 LAB AAMONO <0.87 k/uL Abs 0.18 Hughes LAB AEOS % 5.4 Eosin% LAB AAEOS <0.46 k/uL Abs 0.11 Eosin LAB ABASO % Baso% 1.5 LAB AABASO <0.11 k/uL Abs 0.03 Baso LAB AUNRBC 0 /100 WBC NRBCs 0.0 LAB ABNRBC <0.01 k/uL <0.01 Absolute nRBC LAB DTYP DTYPE Auto Diff Performed By: #### PT, PTT, CK, CRET1, CBCDIF #### [facility] [address] [place], [place] [address] PROGRESS Observed: 09/05/2017 Status: COMPLETED Source: [place] 11:05 AM [facility] REPOSITORY HNO ID: [id number] Author: Ignacio Novak Service: Hospital Medicine Author Type: Physician Type: Progress Notes Filed: 09/05/2017 12:26 PM Note Text: Medicine [place] - Vipul Marie Progress Note PATIENT NAME: [...] ? Emelia Liu MD PGY-1 Internal Medicine [id number] September 05, 2017 11:05 AM [facility] PHYSICIAN NOTE OF PERSONAL INVOLVEMENT IN [...] placement. ? SIGNATURE: Ignacio Novak MD PAGER: [phone] DATE of SERVICE: September 05, 2017 TIME of SERVICE: 12:25 PM THERAPY NT Observed: 09/05/2017 Status: COMPLETED Source: [place] 10:25 AM [facility] REPOSITORY HNO ID: [id number] Author: Alondra Campa Service: Physical Therapy Author Type: Physical Therapist Type: Therapy (PT/OT/Speech/Resp) Filed: 09/05/2017 10:26 AM Note Text: PHYSICAL THERAPY MISSED VISIT SERVICE DATE: 09/05/2017 SERVICE TIME: 1024 to 1024 ROOM: [place] [address] Attempted Evaluation. Patient not seen due to pt evaluated on 08/30 by PT and 09/02 by OT. Per RN and CM pt is still IND and still has no skilled therapy needs. PT discontinuing services at this time. SIGNATURE: Alondra Campa PT PATIENT NAME: Paloma Cannon DATE: September 05, 2017 TIME: 10:25 AM PAGER/CONTACT #: [phone] BRIEF OP NOT Observed: 09/05/2017 Status: COMPLETED Source: [place] 9:16 AM [facility] [place] REPOSITORY HNO ID: [id number] Author: Cara De Leon Service: Interventional Radiology Author Type: Resident Type: Brief Op Note Filed: 09/05/2017 9:19 AM Note Text: BRIEF OPERATIVE / PROCEDURE NOTE LOG ID: [id number] Surgery/Procedure Date: 09/05/2017 Incision/Procedure Start Time: 8:29 AM Incision Close/Procedure End Time: 9:10 AM Surgeon(s)/Proceduralist(s) and Farm Management Agent(s): Surgeon(s) and Role: * Adis Munoz - [...] 05, 2017 TIME: 9:16 AM PAGER/CONTACT #: [phone] IR CENTRAL CATH Observed: 09/05/2017 Status: F Source: [facility] 9:10 AM [facility] REPOSITORY * * *Final Report* * * DATE OF EXAM: Sep 05 2017 9:10AM [facility] 8020 - IR CENTRAL CATH PLACEMENT / PROCEDURE REASON: APS (antiphospholipid syndrome) ([facility]) * * * * Physician Interpretation * * * * PROCEDURE: Tunneled central venous catheter placement and pheresis catheter placement. Procedural Personnel Attending(s): Adis Munoz M.D. Farm Management Agent(s): Fellow(s): None Resident(s): Cara De Leon MD [...] Sterile dressing(s) applied. The [facility] Central Line Insertion checklist, attached to [...] performed by the attending radiologist, with an cement tester assistant. The attending radiologist performed the following [...] JUNCTION. THE CATHETERS MAY BE USED IMMEDIATELY. Pie Topper: PSCB Transcribe Date/Time: Sep 05 2017 9:42A Dictated by : ADIS MUNOZ MD This examination was interpreted and the report reviewed and electronically signed by: ADIS MUNOZ MD on Sep 05 2017 9:46AM EST [id number] IR DIALYSIS CATH Observed: 09/05/2017 Status: F Source: [facility] 9:10 AM [facility] REPOSITORY * * *Final Report* * * DATE OF EXAM: Sep 05 2017 9:10AM [facility] 8021 - IR DIALYSIS CATH PLACEMENT / PROCEDURE REASON: APS (antiphospholipid syndrome) ([facility]) * * * * Physician Interpretation * * * * PROCEDURE: Tunneled central venous catheter placement and pheresis catheter placement. Procedural Personnel Attending(s): Adis Munoz M.D. Farm Management Agent(s): Fellow(s): None Resident(s): Cara De Leon MD [...] Sterile dressing(s) applied. The [facility] Central Line Insertion checklist, attached to [...] performed by the attending radiologist, with an cement tester assistant. The attending radiologist performed the following [...] JUNCTION. THE CATHETERS MAY BE USED IMMEDIATELY. Pie Topper: MURTAZA Transcribe Date/Time: Sep 05 2017 9:42A Dictated by : ADIS MUNOZ MD This examination was interpreted and the report reviewed and electronically signed by: ADIS MUNOZ MD on Sep 05 2017 9:46AM EST [id number] PT ED Observed: 09/05/2017 Status: COMPLETED Source: [place] 8:09 AM [facility] REPOSITORY HNO ID: [id number] Author: Haydee Sauer) JEFF Domingo Service: Nursing Author Type: Registered [...] Signed By: Haydee Domingo RN In Department: [place] [address] NURSING PROG Observed: 09/05/2017 Status: COMPLETED Source: [place] 8:03 AM [facility] REPOSITORY HNO ID: [id number] Author: Denise SanchezRn) Timo Huffman RN Service: (none) Author Type: Registered Nurse Type: Nursing Progress Note Filed: 09/05/2017 6:43 PM Note Text: Nursing Progress Note Topic of Note: Daily Note Paloma uQisper [id number] Patient off the floor in IR for [...] RN PROTIME Collected: 09/05/2017 Status: F Source: [place] 4:39 AM [facility] REPOSITORY TYPE CODE TESTS RESULT OUT OF RANGE REFERENCE UNITS LAB PSEC 9.7-13.0 sec High PT Sec 13.5 LAB INR 0.9-1.3 PT INR 1.3 Result Comment: Vitamin K Antagonist (VKA) Therapeutic Range: INR 2 to 3 (Target INR of 2.5) Note: For patients treated with VKA drugs, such as warfarin, the [employer] 2012 Guideline recommends [...] Chest 2012, 141:7S-47S Diogenes RA, et al. [facility] 2017, 70: 252-289 Performed By: #### PT, PTT, CRET1, MG1, PHOS, CBCDIF #### [facility] [address], [place] [address] APTT Collected: 09/05/2017 Status: F Source: [place] 4:39 [facility] REPOSITORY TYPE CODE TESTS RESULT OUT [...] laboratory APTT reagent in use throughout the [facility]. Performed By: #### PT, PTT, CRET1, MG1, PHOS, CBCDIF #### [facility] [address] [place] [address] CREATININE Collected: 09/05/2017 Status: F Source: [place] 4:39 AM [facility] REPOSITORY TYPE CODE TESTS RESULT OUT OF [...] MG1, PHOS, CBCDIF #### [facility] [address] [place] [address] MAGNESIUM Collected: 09/05/2017 Status: F Source: [place] 4:39 AM [facility] REPOSITORY TYPE CODE TESTS RESULT OUT OF REFERENCE UNITS RANGE LAB MG 1.7-2.3 mg/dL Low Magnesium 1.6 Performed By: #### PT, PTT, CRET1, MG1, PHOS, CBCDIF #### [facility] [address] [address] [place], [place] [address] PHOSPHORUS Collected: 09/05/2017 Status: F Source: [place] 4:39 AM [facility] REPOSITORY TYPE CODE TESTS RESULT OUT OF REFERENCE UNITS RANGE LAB PHOS 2.7-4.8 mg/dL Phosphorus 3.5 Performed By: #### PT, PTT, CRET1, MG1, PHOS, CBCDIF #### [facility] [address] [place], [place] [address] CBC AND DIFFERENTIAL Collected: 09/05/2017 Status: F Source: [place] 4:39 AM [facility] REPOSITORY TYPE CODE TESTS RESULT OUT OF [...] Abs Lymph Low 0.31 LAB AMONO % Hughes% 4.0 LAB AAMONO <0.87 k/uL Abs Hughes 0.07 LAB AEOS % Eosin% 1.0 LAB [...] MG1, PHOS, CBCDIF #### [facility] [address] [place] [id number] NURSING PROG Observed: 09/04/2017 Status: COMPLETED Source: [place] 6:29 PM [facility] REPOSITORY HNO ID: [id number] Author: Denise (Rn) Timo Huffman RN Service: (none) Author Type: Registered Nurse Type: Nursing Progress Note Filed: 09/04/2017 6:31 PM Note Text: Nursing Progress Note Topic of Note: Daily Note Paloma Cannon [id number] Patient to go to tomorrow for a samantha and tunneled dialysis catheter placement. No other issues noted at this time, will monitor. This note was completed by: Denise Huffman RN NUTRITION Observed: 09/04/2017 Status: COMPLETED Source: [place] 1:00 PM [facility] REPOSITORY HNO ID: [id number] Author: Anahi Bang-T) Sergei Service: Nutrition Therapy Author Type: Machine Feeder Raw Stock Type: Nutrition Filed: 09/04/2017 1:03 PM Note [...] min 1 unit SIGNATURE: Anahi Mai DTR CDM PATIENT NAME: Paloma Cannon DATE: September 04, 2017 TIME: 1:00 PM PAGER: [phone] PLAN OF CARE Observed: 09/04/2017 Status: COMPLETED Source: [place] 11:34 AM [facility] REPOSITORY HNO ID: [id number] Author: Veronica Ryan Service: General Internal Medicine [...] PGY-3 PROGRESS Observed: 09/04/2017 Status: COMPLETED Source: [place] 11:33 AM [facility] REPOSITORY HNO ID: [id number] Author: Ignacio Novak Service: Hospital Medicine Author Type: Physician Type: Progress Notes Filed: 09/04/2017 11:58 AM Note Text: Medicine [place] [facility] Progress Note PATIENT NAME: [...] ? Emelia Liu MD PGY-1 Internal Medicine [id number] September 04, 2017 11:34 AM [facility] NOTE OF PERSONAL INVOLVEMENT IN [...] line placement. SIGNATURE: Ignacio Novak MD PAGER: [phone] DATE of SERVICE: September 04, 2017 TIME of SERVICE: 11:55 AM CONSULT PROG Observed: 09/04/2017 Status: COMPLETED Source: [place] 11:29 AM [facility] REPOSITORY HNO ID: [id number] Author: Dominique Wright Service: Infectious Disease Author [...] CONSULT PROG Observed: 09/04/2017 Status: COMPLETED Source: [place] 11:23 AM [facility] REPOSITORY HNO ID: [id number] Author: Paulette Gooden (Elliott) Davonte Service: Vascular [...] had elevated renal function in the past [facility] follows her warfarin outpatient, will follow peripherally for now, please advise us 24 hrs prior to DC and can see and make DC recs SIGNATURE: Paulette Naranjo CNP PATIENT NAME: Paloma Quisper DATE: September 04, 2017 TIME: 11:23 AM PAGER/CONTACT #: [phone] . CASE MANAGEM Observed: 09/04/2017 Status: COMPLETED Source: [place] 11:21 AM [facility] REPOSITORY HNO ID: [id number] Author: Hailey Cunningham Service: Care Management Author Type: Exposure Machine Operator Type: Care Mgt Progress Note Filed: 09/04/2017 11:22 AM Note Text: CARE MANAGEMENT PROGRESS NOTE SERVICE DATE: 09/04/2017 SERVICE TIME:11:11 LOS: 10 days IM letter given to patient on 09/04/2017. SIGNATURE: Hailey Cunningham, PATIENT NAME: Paloma Cannon DATE: September 04, 2017 TIME: 11:21 AM PAGER/CONTACT #: [phone] NURSING PROG Observed: 09/04/2017 Status: COMPLETED Source: [place] 7:12 AM [facility] REPOSITORY HNO ID: [id number] Author: Sanchez Sauer) JEFF Walker Service: (none) Author Type: Registered Nurse Type: Nursing Progress Note Filed: 09/04/2017 7:15 AM Note Text: Nursing Progress Note Patient Name: Paloma Cannon Patient Location: [place] [address] Pt left arm cleaned per protocol, Ultrasound [...] This note was completed by: Sanchez Walker, JEFF PROTIME Collected: 09/04/2017 Status: F Source: [place] 4:22 AM [facility] REPOSITORY TYPE CODE TESTS RESULT OUT OF RANGE REFERENCE UNITS LAB PSEC 9.7-13.0 sec High PT Sec 14.0 LAB INR 0.9-1.3 High PT INR 1.4 Result Comment: Vitamin K Antagonist (VKA) Therapeutic Range: INR 2 to 3 (Target INR of 2.5) Note: For patients treated with VKA drugs, such as warfarin, the [employer] 2012 Guideline recommends [...] Chest 2012, 141:7S-47S Diogenes RA, et al. [facility] 2017, 70: 252-289 Performed By: #### PT, PTT, CBCDIF #### [facility] [address] [place], [place] [address] APTT Collected: 09/04/2017 Status: F Source: [place] 4:22 AM [facility] REPOSITORY TYPE CODE TESTS RESULT OUT OF [...] laboratory APTT reagent in use throughout the [facility]. Performed By: #### PT, PTT, CBCDIF #### [facility] [address] [place], [place] [address] CBC AND DIFFERENTIAL Collected: 09/04/2017 Status: F Source: [place] 4:22 AM [facility] REPOSITORY TYPE CODE TESTS RESULT OUT OF [...] Abs 0.35 Low Lymph LAB AMONO % Hughes% 10.2 LAB AAMONO <0.87 k/uL Abs 0.21 Hughes LAB AEOS % 4.4 Eosin% LAB AAEOS <0.46 k/uL Abs 0.09 Eosin LAB ABASO % Baso% 1.5 LAB AABASO <0.11 k/uL Abs 0.03 Baso LAB AUNRBC 0 /100 WBC NRBCs 0.0 LAB ABNRBC <0.01 k/uL <0.01 Absolute nRBC LAB DTYP DTYPE Auto Diff Performed By: #### PT, PTT, CBCDIF #### [facility] [address] [place], [place] [address] [facility] Observed: 09/04/2017 Status: COMPLETED Source: [place] 12:00 [facility] REPOSITORY Patient Update (HSIDMN) PALOMA MARTINEZ ([id number]) 1990 F PTR Date Time Provider Department [...] Fully Assessed Reason for Visit: CoPat Start [8807] Prescriptions as of 09/04/2017 Sig: X CYCLOPHOSPHAMIDE [...] daily. FLUTICASONE 50 MCG/ACTUATION * Use 1 [place] in each nostril o* X WARFARIN 5 [...] 09/04/17 PROGRESS Observed: 09/03/2017 Status: COMPLETED Source: [place] 11:43 AM [facility] REPOSITORY O ID: [id number] Author: Gael Simmons Service: General Internal Medicine Author Type: Physician Type: Progress Notes Filed: 09/03/2017 1:35 PM Note Text: [facility] Progress Note PATIENT [...] Veronica Ryan MD Internal Medicine PGY-3 Pager: augustine [phone] 11:45 AM 09/03/2017 [facility] NOTE OF PERSONAL INVOLVEMENT IN CARE I have reviewed the documentation obtained and documented by the team healthcare provider (fellow, resident, nurse practitioner or physician cement tester assistant) and I personally participated in the fernandes components. I have discussed the case and management of the patient's care and the note has been revised / addended to reflect my direct input. Continues to do well, 2.23 c/s NGTD x2 plt ct has stabilized Plan is for new exchange line next week Gael [facility] MD [facility] Medicine Staff PAGER: [phone] DATE of Service: 09/03/2017 TIME of Service: 1:35 PM PROTIME Collected: 09/03/2017 Status: F Source: [place] 5:50 AM [facility] REPOSITORY TYPE CODE TESTS RESULT OUT OF RANGE REFERENCE UNITS LAB PSEC 9.7-13.0 sec High PT Sec 15.9 LAB INR 0.9-1.3 High PT INR 1.6 Result Comment: Vitamin K Antagonist (VKA) Therapeutic Range: INR 2 to 3 (Target INR of 2.5) Note: For patients treated with VKA drugs, such as warfarin, the [employer] 2012 Guideline recommends [...] Chest 2012, 141:7S-47S Diogenes RA, et al. [facility] 2017, 70: 252-289 Performed By: #### PT, PTT, CBCDIF #### [facility] [address] [place], [place] [address] APTT Collected: 09/03/2017 Status: F Source: [place] 5:50 AM [facility] REPOSITORY TYPE CODE TESTS RESULT OUT OF [...] laboratory APTT reagent in use throughout the [facility]. Performed By: #### PT, PTT, CBCDIF #### [facility] [address] [place], [place] [address] CBC AND DIFFERENTIAL Collected: 09/03/2017 Status: F Source: [place] 5:50 AM [facility] REPOSITORY TYPE CODE TESTS RESULT OUT OF [...] Abs Lymph Low 0.35 LAB AMONO % Hughes% 5.0 LAB AAMONO <0.87 k/uL Abs Hughes 0.09 LAB AEOS % Eosin% 3.0 LAB [...] PT, PTT, CBCDIF #### [facility] [address] [place] [address] NURSING PROG Observed: 09/02/2017 Status: COMPLETED Source: [place] 3:41 PM [facility] REPOSITORY HNO ID: [id number] Author: Shelia SanchezRn) JEFF Oviedo Service: (none) Author Type: Registered Nurse Type: Nursing Progress Note Filed: 09/02/2017 3:42 PM Note Text: Nursing Progress Note Patient Name: Paloma Cannon Patient Location: [place] [address] Daily Note: 1540- Patient resting in bed, call light in reach. This note was completed by: Shelia Oviedo RN THERAPY NT Observed: 09/02/2017 Status: COMPLETED Source: [place] 10:38 AM [facility] REPOSITORY HNO ID: [id number] Author: Mitch Mckenzie/Carlos Wallis Service: Occupational Therapy Author Type: Occupational Therapist Type: Therapy (PT/OT/Speech/Resp) Filed: 09/02/2017 10:41 AM Note Text: Occupational Therapy Evaluation SERVICE DATE: 09/02/2017 SERVICE TIME: 1000 to 1030 ROOM: [place] [address] Recommended Discharge Disposition: Home Recommended Discharge Disposition [...] No Skilled Need Interventions Provided: Evaluation;Therapeutic Exercise (62150) $ Evaluation-Low (34457) Billed Units: 1 unit Therapeutic Exercise (97189) Treatment Minutes: 15 1 unit Skilled Intervention(s): [...] Lives With: Significant Other Assistance Available: PRN;multimedia author Entry To Home: No Stairs Number Of [...] September 02, 2017 TIME: 10:38 AM PAGER: [phone] PROGRESS Observed: 09/02/2017 Status: COMPLETED Source: [place] 10:20 AM [facility] REPOSITORY HNO ID: [id number] Author: Gale Simmons Service: Hospital Medicine Author Type: Physician Type: Progress Notes Filed: 09/02/2017 10:45 AM Note Text: Medicine [place] [facility] Progress Note PATIENT NAME: [...] staff, Dr Simmons SIGNATURE: [place] [id number] DATE of SERVICE: September 02, 2017 TIME of SERVICE: 10:20 AM [facility] NOTE OF PERSONAL INVOLVEMENT IN CARE I have reviewed the documentation obtained and documented by the team healthcare provider (fellow, resident, nurse practitioner or physician cement tester assistant) and I personally participated in the fernandes components. I have discussed the case and management of the patient's care and the note has been revised / addended to reflect my direct input. Clinically improving. No loose stools past 24 hours, joint pain controlled. Plan remains the same. Gael Simmons MD [facility] Medicine Staff PAGER: [phone] DATE of Service: 09/02/2017 TIME of Service: 10:45 AM PROTIME Collected: 09/02/2017 Status: F Source: [place] 5:15 AM [facility] REPOSITORY TYPE CODE TESTS RESULT OUT OF RANGE REFERENCE UNITS LAB PSEC 9.7-13.0 sec High PT Sec 17.2 LAB INR 0.9-1.3 High PT INR 1.7 Result Comment: Vitamin K Antagonist (VKA) Therapeutic Range: INR 2 to 3 (Target INR of 2.5) Note: For patients treated with VKA drugs, such as warfarin, the [employer] 2012 Guideline recommends [...] Chest 2012, 141:7S-47S Diogenes RA, et al. [facility] 2017, 70: 252-289 Performed By: #### PT, PTT, MG1, PHOS, CBCDIF #### [facility] [address] [place], [place] [address] APTT Collected: 09/02/2017 Status: F Source: [place] 5:15 AM [facility] REPOSITORY TYPE CODE TESTS RESULT OUT OF [...] laboratory APTT reagent in use throughout the [facility]. Performed By: #### PT, PTT, MG1, PHOS, CBCDIF #### [facility] [address] [place], [place] [address] MAGNESIUM Collected: 09/02/2017 Status: F Source: [place] 5:15 AM [facility] REPOSITORY TYPE CODE TESTS RESULT OUT OF REFERENCE UNITS RANGE LAB MG 1.7-2.3 mg/dL Magnesium 1.9 Performed By: #### PT, PTT, MG1, PHOS, CBCDIF #### [facility] [address] [place], [place] [address] PHOSPHORUS Collected: 09/02/2017 Status: F Source: [place] 5:15 AM [facility] REPOSITORY TYPE CODE TESTS RESULT OUT OF REFERENCE UNITS RANGE LAB PHOS 2.7-4.8 mg/dL Phosphorus 3.5 Performed By: #### PT, PTT, MG1, PHOS, CBCDIF #### [facility] [address] [place], [place] [address] CBC AND DIFFERENTIAL Collected: 09/02/2017 Status: F Source: [place] 5:15 AM [facility] REPOSITORY TYPE CODE TESTS RESULT OUT OF [...] Abs Lymph Low 0.11 LAB AMONO % Hughes% 3.8 LAB AAMONO <0.87 k/uL Abs Hughes 0.06 LAB AEOS % Eosin% 3.3 LAB [...] MG1, PHOS, CBCDIF #### [facility] [address] [place] [id number] CONSULT PROG Observed: 09/01/2017 Status: COMPLETED Source: [place] 1:26 PM [facility] REPOSITORY HNO ID: [id number] Author: Dominique Wright Service: Infectious Disease Author [...] p.m. PROGRESS Observed: 09/01/2017 Status: COMPLETED Source: [place] 11:15 AM [facility] REPOSITORY HNO ID: [id number] Author: Gael Simmons Service: Hospital Medicine Author Type: Physician Type: Progress Notes Filed: 09/01/2017 11:59 AM Note Text: [facility] [place] [facility] [place] Progress Note PATIENT NAME: [...] bacteremia 3 line cultures positive for MRSE (2 x2/ and /2 x2/) Needs coverage for MRSE Prior adverse [...] staff, Dr Simmons SIGNATURE: [place] [id number] DATE of SERVICE: September 01, 2017 TIME of SERVICE: 11:19 AM [facility] NOTE OF PERSONAL INVOLVEMENT IN CARE I have reviewed the documentation obtained and documented by the team healthcare provider (fellow, resident, nurse practitioner or physician cement tester assistant) and I personally participated in the fernandes components. I have discussed the case and management of the patient's care and the note has been revised / addended to reflect my direct input. Jesus Alberto catheter out and she feels better Counts continue to fall Cont current abx ? New TAC early next week Gael Simmons MD [facility] Medicine Staff PAGER: [phone] DATE of Service: 09/01/2017 TIME of Service: 11:58 AM CASE MANAGEM Observed: 09/01/2017 Status: COMPLETED Source: [place] 9:10 AM [facility] REPOSITORY [facility] ID: [id number] Author: Dary (Rn) JEFF Jimenes Service: Care [...] DC. TCC/SW to follow For W/E CM p#[id number] SIGNATURE: Dary Jimenes RN PATIENT NAME: Paloma Cannon DATE: September 01, 2017 TIME: 9:10 AM PAGER/CONTACT #: [phone] Observed: 09/01/2017 Status: F Source: [place] BLOOD CULTURE 8:01 AM [facility] REPOSITORY Culture Result - No growth 5 days Performed By: #### BLCUL #### [facility] [address] [place], [place] [address] Observed: 09/01/2017 Status: F Source: [place] BLOOD CULTURE 7:49 AM [facility] REPOSITORY Culture Result - No growth 5 days Performed By: #### BLCUL #### [facility] [address] [place], [place] [address] PROTIME Collected: 09/01/2017 Status: F Source: [place] 5:15 AM [facility] REPOSITORY TYPE CODE TESTS RESULT OUT OF RANGE REFERENCE UNITS LAB PSEC 9.7-13.0 sec High PT Sec 17.5 LAB INR 0.9-1.3 High PT INR 1.8 Result Comment: Vitamin K Antagonist (VKA) Therapeutic Range: INR 2 to 3 (Target INR of 2.5) Note: For patients treated with VKA drugs, such as warfarin, the [employer] 2012 Guideline recommends [...] Chest 2012, 141:7S-47S Diogenes RA, et al. [facility] 2017, 70: 252-289 Performed By: #### PT, PTT, CBCDIF #### [facility] [address] [place], [place] [address] APTT Collected: 09/01/2017 Status: F Source: [place] 5:15 AM [facility] REPOSITORY TYPE CODE TESTS RESULT OUT OF [...] laboratory APTT reagent in use throughout the [facility]. Performed By: #### PT, PTT, CBCDIF #### [facility] [address] [place] [id number] CBC AND DIFFERENTIAL Collected: 09/01/2017 Status: F Source: [place] 5:15 AM [facility] REPOSITORY TYPE CODE TESTS RESULT [...] Abs Lymph Low 0.08 LAB AMONO % Hughes% 13.0 LAB AAMONO <0.87 k/uL Abs Hughes 0.19 LAB AEOS % Eosin% 6.1 LAB AAEOS <0.46 k/uL Abs Eosin 0.09 LAB ABASO % Baso% 2.6 LAB AABASO <0.11 k/uL Abs Baso 0.04 LAB AMETA % [place]% 0.4 LAB ANIIMI Anisocytosis Present LAB OVAIMI Ovalocytes Few LAB POLIMI Polychromasia Slight LAB RCFIMI RBC Fragments Few LAB PLTEST Platelet Estimate Platelet estimate decreased LAB DTYP DTYPE Manual Diff Performed By: #### PT, PTT, CBCDIF #### [facility] [address] [place], [place] [address] BRIEF OP NOT Observed: 08/31/2017 Status: COMPLETED Source: [place] 7:42 PM [facility] REPOSITORY HNO ID: [id number] Author: Nicholas Gee III Service: Radiology Author [...] patient was brought to room 25, IR. [place] protocol performed. Subsequently, Removal of an indwelling [...] 31, 2017 TIME: 7:42 PM PAGER/CONTACT #: [phone] IR CENTRAL LINE Observed: 08/31/2017 Status: F Source: [place] REM[place] 7:16 PM [facility] REPOSITORY * * *Final Report* * * DATE OF EXAM: Aug 31 2017 7:16PM [facility] 0746 - IR CENTRAL LINE REMOVAL [...] Microbiology ATTENDING RADIOLOGIST: Nicholas Gee III, M.D. EMPLOYEE RELATIONS ADMINISTRATOR: None The procedure was performed by the: attending radiologist, without an cement tester assistant. The attending radiologist performed the following procedural activities: Entire procedure IMPRESSION: SUCCESSFUL REMOVAL OF TUNNELED CENTRAL VENOUS CATHETER. Pie Topper: MURTAZA Transcribe Date/Time: Sep 06 2017 12:59A Dictated by : NICHOLAS GEE III, MD This examination was interpreted and the report reviewed and electronically signed by: NICHOLAS GEE III, MD on Sep 06 2017 1:00AM EST Observed: 08/31/2017 Status: F Source: [place] CATH TIP CULTURE 7:00 PM [facility] REPOSITORY Sp. Request/Comment: - Specimen received in [...] By: #### CTCUL #### [facility] [address] [place] [address] HISTORY PHYSICAL Observed: 08/31/2017 Status: COMPLETED Source: [place] 6:38 PM [facility] REPOSITORY HNO ID: [id number] Author: Nicholas Gee III Service: Radiology Author [...] August 31, 2017 TIME: 6:38 PM PAGER: [phone] PT ED Observed: 08/31/2017 Status: COMPLETED Source: [place] 6:37 PM [facility] REPOSITORY HNO ID: [id number] Author: Eugenia SanchezRn) JEFF Hart Service: Nursing Author Type: Registered Nurse Type: Patient Education Filed: 08/31/2017 6:40 PM Note Text: PATIENT EDUCATION TOPIC: PROCEDURE / SURGERY: Pre Procedure Teaching: Logistics Protocols Complication Prevention Surgical Safety Principles PATIENT NAME: Paloma Cannon PATIENT LOCATION: [facility] READINESS TO LEARN COGNITIVE ABILITY: Alert and [...] NURSING PROG Observed: 08/31/2017 Status: COMPLETED Source: [place] 1:00 PM [facility] REPOSITORY HNO ID: [id number] Author: Lourdes SanchezRn) JEFF Stallworth Service: (none) Author Type: Registered Nurse Type: Nursing Progress Note Filed: 08/31/2017 5:04 PM Note Text: Nursing Progress Note Patient Name: Paloma Cannon Patient Location: [place] [address] Daily Note: 1230 report given to IR [...] CONSULT PROG Observed: 08/31/2017 Status: COMPLETED Source: [place] 12:50 PM [facility] REPOSITORY HNO ID: [id number] Author: Dominique Wright Service: Infectious Disease Author [...] p.m. PROGRESS Observed: 08/31/2017 Status: COMPLETED Source: [place] 12:45 PM [facility] REPOSITORY HNO ID: [id number] Author: Gael Simmons Service: Hospital Medicine Author Type: Physician Type: Progress Notes Filed: 08/31/2017 1:05 PM Note Text: Medicine [place] [facility] [place] Progress Note PATIENT NAME: [...] - Bival vs Fondaparinux - Consult to [facility] medicine ? Chronic Problems: 1. Anti-phospholipid Syndrome 2. Hypertension 3. HFpEF - f/u ECHO 4. Heparin-induced Thrombocytopenia 5. 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 GERD ? Other: Diet: Regular GI AND DVT Prophylaxis: warfarin PT/OT Disposition Recs: N/A Code Status: Full code ? Case to be discussed with staff, Dr Simmons SIGNATURE: [place] [id number] DATE of SERVICE: August 31, 2017 TIME of SERVICE: 12:46 PM [facility] NOTE OF PERSONAL INVOLVEMENT IN CARE I have reviewed the documentation obtained and documented by the team healthcare provider (fellow, resident, nurse practitioner or physician cement tester assistant) and I personally participated in the fernandes components. I have discussed the case and management of the patient's care and the note has been revised / addended to reflect my direct input. Jesus Alberto c/s positive, will need to be removed - we will schedule. Cont Dapto / Flagyl [facility]iate [facility] input, likely fondarinux SQ low dose for now. No further evidence of DAH Some joint pain she says occurred with BSI in the past Gael Simmons MD [facility] Hospital Medicine Staff PAGER: [phone] DATE of Service: 08/31/2017 TIME of Service: 1:03 PM CONSULT Observed: 08/31/2017 Status: COMPLETED Source: [place] 12:00 PM [facility] REPOSITORY HNO ID: [id number] Author: Darcie Choi MD Service: Vascular Medicine [...] (FLONASE) 50 mcg/actuation nasal spray Use 1 [place] in each nostril once daily. warfarin (COUMADIN) [...] twice daily as needed. [facility] [employer] [facility] package 30 - 40 mmHg pressure [...] 31, 2017 TIME: 12:01 PM PAGER/CONTACT #: [phone] . Staff addendum: I interviewed and examined Paloma Cannon, and reviewed and confirmed the findings of the RETAIL DISTRICT MANAGER with additional comments below. The assessment and plan was formulated in discussion with the patient and RETAIL DISTRICT MANAGER, and is also outlined below. Pleasant 27yo F well known to our service due to hx of APS with hx of prior VTE, on senior care anticoagulation with warfarin, and additional complications related [...] Staff PROTIME Collected: 08/31/2017 Status: F Source: [place] 4:35 AM [facility] REPOSITORY TYPE CODE TESTS RESULT OUT OF RANGE REFERENCE UNITS LAB PSEC 9.7-13.0 sec High PT Sec 18.2 LAB INR 0.9-1.3 High PT INR 1.8 Result Comment: Vitamin K Antagonist (VKA) Therapeutic Range: INR 2 to 3 (Target INR of 2.5) Note: For patients treated with VKA drugs, such as warfarin, the [employer] 2012 Guideline recommends [...] Chest 2012, 141:7S-47S Diogenes RA, et al. [facility] 2017, 70: 252-289 Performed By: #### PT, CBCDIF #### [facility] [facility] [address] [address] CBC AND DIFFERENTIAL Collected: 08/31/2017 Status: F Source: [place] 4:35 AM [facility] REPOSITORY TYPE CODE TESTS RESULT OUT OF [...] Abs Lymph 0.07 Low LAB AMONO % Hughes% 4.3 LAB AAMONO <0.87 k/uL Abs Hughes 0.08 LAB AEOS % Eosin% 5.6 LAB [...] #### PT, CBCDIF #### [facility] [address] [place], [place] [address] Observed: 08/30/2017 Status: F Source: [place] BLOOD CULTURE 4:57 PM [facility] REPOSITORY Sp. Request/Comment: - TAKEN FROM [place] Culture Result - Enterococcus faecalis Cephalosporins, clindamycin, and TMP-SMX are not effective for the treatment of enterococcal infections. --> ABNORMAL ALERT Refer to specimen collected on --&gt ; ABNORMAL ALERT 08/30/17 AT 1654 ([id number]) --> ABNORMAL ALERT Staphylococcus epidermidis --> ABNORMAL [...] By: #### BLCUL #### [facility] [address] [place], [place] [address] Observed: 08/30/2017 Status: F Source: [place] BLOOD CULTURE 4:54 PM [facility] REPOSITORY Sp. Request/Comment: - FROM LEFT SIDED [...] By: #### BLCUL #### [facility] [address], [place] [address] IR CENTRAL LINE Observed: 08/30/2017 Status: F Source: [place] REMOVAL 2:26 PM [facility] REPOSITORY * * *Final Report* * * DATE OF EXAM: Aug 30 2017 2:26PM [facility] 0746 - IR CENTRAL LINE REMOVAL [...] of Removed Specimens: 0: ATTENDING RADIOLOGIST: n/a EMPLOYEE RELATIONS ADMINISTRATOR: None The procedure was performed by the: Machelle Joshi PA-C IMPRESSION: SUCCESSFUL REMOVAL OF TUNNELED CENTRAL VENOUS CATHETER. Pie Topper: MURTAZA Transcribe Date/Time: Aug 30 2017 4:50P Dictated by : MACHELLE JOSHI PA-C This examination was interpreted and the report reviewed and electronically signed by: MACHELLE JOSHI PA-C on Aug 30 2017 4:53PM EST NURSING PROG Observed: 08/30/2017 Status: COMPLETED Source: [place] 2:18 PM [facility] REPOSITORY O ID: [id number] Author: Lourdes SanchezRn) JEFF Stallworth Service: (none) Author Type: Registered Nurse Type: Nursing Progress Note Filed: 08/30/2017 6:24 PM Note Text: Nursing Progress Note Patient Name: Paloma Cannon [address] Daily Note: A blood culture ordered for [...] OP NOT Observed: 08/30/2017 Status: COMPLETED Source: [place] 1:48 PM [facility] REPOSITORY HNO ID: [id number] Author: Machelle Joshi Service: Radiology Author Type: Physician Farm Management Agent Type: Brief Op Note Filed: 08/30/2017 1:54 PM Note Text: BRIEF OP NOTE LOG ID: [id number] Surgery/Procedure Date: 08/30/2017 Incision/Procedure Start Time: 1325 Incision Close/Procedure End Time: 1335 Surgeon(s)/Proceduralist(s) and Farm Management Agent(s): Machelle Joshi PA-C Procedure(s): Removal of samantha [...] 30, 2017 TIME: 1:48 PM PAGER/CONTACT #: [phone] PT ED Observed: 08/30/2017 Status: COMPLETED Source: [place] 1:46 PM [facility] REPOSITORY HNO ID: [id number] Author: Daysi Grullon (Pharmacist) Service: Pharmacy Author [...] with Physician: name: Dr. Guillaume Fuller' office ([facility] physician) with his RETAIL DISTRICT MANAGER Magdalena Indication for warfarin: deep vein thrombosis (DVT) Target INR range: 2.0 - 3.0 (Target 2.5) Patient received full warfarin education (Please see previously documented note on 08/27/17). DAYSI GRULLON, PHARMACIST [id number] HISTORY PHYSICAL Observed: 08/30/2017 Status: COMPLETED Source: [place] 1:17 PM [facility] REPOSITORY HNO ID: [id number] Author: Machelle Joshi Service: Radiology Author Type: Physician Farm Management Agent Type: HANDP Filed: 08/30/2017 1:18 PM Note [...] August 30, 2017 TIME: 1:17 PM PAGER: [phone] CONSULT PROG Observed: 08/30/2017 Status: COMPLETED Source: [place] 12:33 PM [facility] REPOSITORY HNO ID: [id number] Author: Dominique Wright Service: Infectious Disease Author [...] THERAPY NT Observed: 08/30/2017 Status: COMPLETED Source: [place] 12:22 PM [facility] REPOSITORY O ID: [id number] Author: Alondra (PtDevonte Campa Service: Physical Therapy Author Type: Physical Therapist Type: Therapy (PT/OT/Speech/Resp) Filed: 08/30/2017 12:26 PM Note Text: Physical Therapy Evaluation SERVICE DATE: 08/30/2017 SERVICE TIME: 1151 to 1215 ROOM: [address] [address] Recommended Discharge Disposition: Home Recommended Discharge Equipment: [...] No Skilled Need Interventions Provided: Evaluation;Gait Training (23800) $ Evaluation-Low (92990) Billed Units: 1 unit Gait Training (29942) Treatment Minutes: 8 1 unit Skilled Intervention(s): [...] Lives With: Significant Other Assistance Available: PRN;multimedia author Entry To Home: No Stairs Number Of [...] 30, 2017 TIME: 12:22 PM PAGER/CONTACT #: [phone] PROGRESS Observed: 08/30/2017 Status: COMPLETED Source: [place] 12:16 PM [facility] [place] REPOSITORY O ID: [id number] Author: Gael Simmons Service: Hospital Medicine Author Type: Physician Type: Progress Notes Filed: 08/30/2017 2:21 PM Note Text: [facility] [place] - Vipul Marie Progress Note PATIENT NAME: [...] cultures positive for MRSE (08/11 x2/ and 2 x2/) Needs coverage for MRSE Prior adverse [...] staff, Dr Simmons SIGNATURE: [place] [id number] DATE of SERVICE: August 30, 2017 TIME of SERVICE: 12:16 PM [facility] STAFF PHYSICIAN NOTE OF PERSONAL INVOLVEMENT IN CARE I have reviewed the documentation obtained and documented by the team healthcare provider (fellow, resident, nurse practitioner or physician cement tester assistant) and I personally participated in the fernandes components. I have discussed the case and management of the patient's care and the note has been revised / addended to reflect my direct input. Samantha now out. Diarrhea resolving Need c/s from Basil Appreciate ID help Hemoptysis has resolved as well Gael Simmons MD [facility] Medicine Staff PAGER: [phone] DATE of Service: 08/30/2017 TIME of Service: 2:20 PM NUTRITION Observed: 08/30/2017 Status: COMPLETED Source: [place] 10:34 AM [facility] REPOSITORY HNO ID: [id number] Author: Elsa Germain Service: Nutrition Therapy Author Type: Registered Dietitian Type: Nutrition Filed: 08/30/2017 6:05 PM Note Text: NUTRITION THERAPY PROGRESS NOTE SERVICE DATE: 08/30/2017 SERVICE TIME: 1534 RECOMMENDED DIAGNOSIS: SEVERE PROTEIN-CALORIE MALNUTRITION per Registered [...] 2 units SIGNATURE: Elsa Germain, MS RDN-AP LD [facility] PATIENT NAME: Paloma Cannon DATE: August 30, 2017 TIME: 10:34 AM PAGER: [phone] PROTIME Collected: 08/30/2017 Status: F Source: [place] 3:23 AM [facility] REPOSITORY TYPE CODE TESTS RESULT OUT OF RANGE REFERENCE UNITS LAB PSEC 9.7-13.0 sec High PT Sec 22.4 LAB INR 0.9-1.3 High PT INR 2.3 Result Comment: Vitamin K Antagonist (VKA) Therapeutic Range: INR 2 to 3 (Target INR of 2.5) Note: For patients treated with VKA drugs, such as warfarin, the [employer]icians 2012 Guideline recommends [...] Chest 2012, 141:7S-47S Diogenes RA et al. [facility] 2017, 70: 252-289 Performed By: #### PT, CK, CMP, MG1, PHOS, CBCDIF #### [facility] [address] [place], [place] [address] CK Collected: 08/30/2017 Status: F Source: [facility] 3:23 AM [facility] [place] REPOSITORY TYPE CODE TESTS RESULT OUT OF RANGE REFERENCE UNITS LAB CK 42-196 U/L Low CK <7 Result Comment: Result rechecked. Performed By: #### PT, CK, CMP, MG1, PHOS, CBCDIF #### [facility] [address] [place], [place] [address] COMP METABOLIC PANEL Collected: 08/30/2017 Status: F Source: [place] 3:23 AM [facility] REPOSITORY TYPE CODE TESTS RESULT OUT OF [...] mg/dL Low Glucose 70 Result Comment: The [place] Diabetes Association (ADA) provides guidance for cutoff [...] Standards of Medical Care in Diabetes 2016, [place] Diabetes [employer]. Diabetes Care. 2016.39(Suppl 1). LAB [...] MG1, PHOS, CBCDIF #### [facility] [address] [place], [place] [address] MAGNESIUM Collected: 08/30/2017 Status: F Source: [place] 3:23 AM [facility] REPOSITORY TYPE CODE TESTS RESULT OUT OF REFERENCE UNITS RANGE LAB MG 1.7-2.3 mg/dL Magnesium 2.0 Performed By: #### PT, CK, CMP, MG1, PHOS, CBCDIF #### [facility] [address] [address] PHOSPHORUS Collected: 08/30/2017 Status: F Source: [place] 3:23 AM [facility] REPOSITORY TYPE CODE TESTS RESULT OUT OF REFERENCE UNITS RANGE LAB PHOS 2.7-4.8 mg/dL Low Phosphorus 2.5 Performed By: #### PT, CK, CMP, MG1, PHOS, CBCDIF #### [facility] [address] [place], [place] [address] CBC AND DIFFERENTIAL Collected: 08/30/2017 Status: F Source: [place] 3:23 AM [facility] REPOSITORY TYPE CODE TESTS RESULT OUT OF [...] Abs Lymph Low 0.12 LAB AMONO % Hughes% 5.8 LAB AAMONO <0.87 k/uL Abs Hughes 0.08 LAB AEOS % Eosin% 6.2 LAB [...] MG1, PHOS, CBCDIF #### [facility] [address] [place], [place] [address] CNDS Observed: 08/29/2017 Status: COMPLETED Source: [place] 4:25 PM [facility] REPOSITORY HNO ID: [id number] Author: Ignacio Novak Service: General Internal Medicine [...] found to be positive for lupus anticoagulant, eynx-a0-tymteqjgxbhh, and anti-cardiolipin antibodies for which she gets [...] on 09/08/2017. 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 6) HFpEF Med list included: hydralazine, carvedilol, [...] (FLONASE) 50 mcg/actuation nasal spray Use 1 [place] in each nostril once daily. Historical Med [...] RCTMN RADIO (MAIN 09/11/2017 11:55 AM Guillaume HARRIS A/E/R/G 09/18/2017 12:00 PM [facility] [place] 09/19/2017 2:45 PM Dominique Wright INFDMN INFD (MAIN - 09/27/2017 12:30 PM [facility] [place] 10/02/2017 12:30 PM [facility] [place] 10/16/2017 12:30 PM [facility] [place] 10/30/2017 12:30 PM [facility] [place] Veronica Ryan MD Internal Medicine PGY-3 Pager:v: [phone] 3:42 PM 09/06/2017 [facility] ST[facility]FF PHYSICIAN NOTE OF PERSONAL INVOLVEMENT IN [...] this patient SIGNATURE: Ignacio Novak MD PAGER: [phone] DATE of SERVICE: September 07, 2017 TIME of SERVICE: 1:33 PM Observed: 08/29/2017 Status: F Source: [place] BLOOD CULTURE 3:36 PM [facility] REPOSITORY Culture Result - No growth 5 days Performed By: #### BLCUL #### [facility] [address] [place], [place] [address] CONSULT PROG Observed: 08/29/2017 Status: COMPLETED Source: [place] 12:16 PM [facility] REPOSITORY HNO ID: [id number] Author: Dominique Wright Service: Infectious Disease Author [...] 1V FRONTAL Observed: 08/29/2017 Status: F Source: [facility] 11:39 AM CL[facility]IC [facility] REPOSITORY * * [...] silhouette: The cardiomediastinal silhouette is unchanged. Other: Pie Topper: PSCB Transcribe Date/Time: Aug 29 2017 2:26P Dictated by : DANNY COSTA MD This examination was interpreted and the report reviewed and electronically signed by: DANNY COSTA MD on Aug 29 2017 2:26PM EST [id number] Observed: 08/29/2017 Status: COMPLETED Source: [place] 10:46 AM [facility] REPOSITORY HNO ID: [id number] Author: Gael Simmons Service: Hospital Medicine Author Type: Physician Type: Progress Notes Filed: 08/29/2017 12:47 PM Note Text: [facility] [place] - Vipul Marie Progress Note PATIENT NAME: Paloma Cannon Brief Plan for Today - Appreciate ID recommendations; Switch ampicillin to daptomycin as 3 culltures positive for MRSE - Monitor blood count - Hold off CT Abd and line removal as BCx from 2/19 NG x 24hrs - F/u ECHO, fungal battery Interval History No acute events overnight, afebrile 24 hours, HDS Diarrhea is improving, 2 Bm yesterday, decreased cramping Subjectively feels better today No need for line removal as BCx from 2/19 NG x 1d Switched to daptomycin to [...] staff, Dr Simmons SIGNATURE: [place] [id number] DATE of SERVICE: August 29, 2017 TIME of SERVICE: 10:48 AM [facility] PHYSIC[facility] NOTE OF PERSONAL INVOLVEMENT IN CARE I have reviewed the documentation obtained and documented by the team healthcare provider (fellow, resident, nurse practitioner or physician cement tester assistant) and I personally participated in the [...] Appreciate ID support Gael Simmons MD FACP [facility] Medicine Staff PAGER: [phone] DATE of Service: 08/29/2017 TIME of Service: 12:46 PM CONSULT PROG Observed: 08/29/2017 Status: COMPLETED Source: [place] 7:55 AM [facility] REPOSITORY HNO ID: [id number] Author: Dominique Wright Service: Infectious Disease Author Type: Physician Type: Consult Progress Note Filed: 08/29/2017 7:59 AM Note Text: ID BRIEF NOTE Blood cultures from line now growing MRSE from 3 sets. Previously only one set. 16: blood x 2 line and periphery MRSE [...] NURSING PROG Observed: 08/29/2017 Status: COMPLETED Source: [place] 6:51 AM [facility] REPOSITORY HNO ID: [id number] Author: Lisseth (Rn) JEFF Palmer Service: Nursing Author Type: Registered Nurse Type: Nursing Progress Note Filed: 08/29/2017 6:52 AM Note Text: Nursing Progress Note Patient Name: Paloma Cannon Patient Location: G081 023/G081-23 Daily Note: Zacarias pride paged to notify that Blood Cx drawn 08/26 @ 1828 from central line + MRSE. This note was completed by: Lisseth Palmer RN COMP METABOLIC PANEL Collected: 08/29/2017 Status: F Source: [place] 6:16 AM [facility] REPOSITORY TYPE CODE TESTS RESULT [...] mg/dL Low Glucose 69 Result Comment: The [place] Diabetes Association (ADA) provides guidance for cutoff [...] Standards of Medical Care in Diabetes 2016, [employer] Diabetes Association. Diabetes Care. 2016.39(Suppl 1). LAB [...] By: #### CMP #### [facility] [address] [place], [place] [address] PROTIME Collected: 08/29/2017 Status: F Source: [place] 4:07 AM [facility] REPOSITORY TYPE CODE TESTS RESULT OUT OF RANGE REFERENCE UNITS LAB PSEC 9.7-13.0 sec High PT Sec 27.6 LAB INR 0.9-1.3 High PT INR 2.8 Result Comment: Vitamin K Antagonist (VKA) Therapeutic Range: INR 2 to 3 (Target INR of 2.5) Note: For patients treated with VKA drugs, such as warfarin, the [employer] of Chest [employer]icians 2012 Guideline recommends [...] #### PT, CBCDIF #### [facility] [address] [place], [place] [address] CBC AND DIFFERENTIAL Collected: 08/29/2017 Status: F Source: [place] 4:07 AM [facility] REPOSITORY TYPE CODE TESTS RESULT OUT OF [...] Abs Lymph 0.09 Low LAB AMONO % Hughes% 4.2 LAB AAMONO <0.87 k/uL Abs Hughes 0.05 LAB AEOS % Eosin% 4.7 LAB AAEOS <0.46 k/uL Abs Eosin 0.06 LAB ABASO % Baso% 2.8 LAB AABASO <0.11 k/uL Abs Baso 0.03 LAB NRBC 0 /100 WBC NRBCs 4 High LAB AMETA % [place]% 0.5 LAB ANIIMI Anisocytosis Present LAB LFTIMI Left Shift Present LAB GNTPLW Giant Platelets Occasional LAB OVAIMI Ovalocytes Few LAB POLIMI Polychromasia Slight LAB RCFIMI RBC Fragments Few LAB PLTEST Platelet Estimate Platelet estimate decreased LAB DTYP DTYPE Manual Diff Performed By: #### PT, CBCDIF #### [facility] [address] [place], [place] [address] NURSING PROG Observed: 08/29/2017 Status: COMPLETED Source: [place] 2:21 AM [facility] REPOSITORY HNO ID: [id number] Author: Jeff Oates RN Service: (none) Author Type: Registered Nurse Type: Nursing Progress Note Filed: 08/29/2017 2:22 AM Note Text: Nursing Progress Note Patient Name: Paloma Cannon Patient Location: [facility] 023/G081-23 Daily Note: 0217 Lab called urgent value, +blood cultures on 08/26 from central line showing gram + cocci and clusters. Vipul pride paged. This note was completed by: Lashon Howell RN Observed: 08/28/2017 Status: F Source: [place] BLOOD CULTURE 4:40 PM [facility] REPOSITORY Culture Result - No growth 5 days Performed By: #### BLCUL #### [facility] [address] [place], [place] [address] Observed: 08/28/2017 Status: F Source: [place] BLOOD CULTURE 4:20 PM [facility] REPOSITORY Culture Result - No growth 5 days Performed By: #### BLCUL #### [facility] [address] [place] [address] PROGRESS Observed: 08/28/2017 Status: COMPLETED Source: [place] 1:55 PM [facility] REPOSITORY HNO ID: [id number] Author: Gael Simmons Service: Hospital Medicine Author Type: Physician Type: Progress Notes Filed: 08/28/2017 3:05 PM Note Text: Medicine [place] - Vipul Marie Progress Note PATIENT NAME: Palmoa Cannon Brief Plan for Today - Repeat [...] 2 g in NaCl 0.9% 100 mL MB+/ADD-[place] 2 g INTRAVENOUS q 6 H diphenhydrAMINE 25 mg in D5W 50 mL 25 mg INTRAVENOUS PRN prochlorperazine 5 mg injection (COMPAZINE) 5 mg INTRAVENOUS q 4 H PRN metroNIDAZOLE 500 mg PREMIX piggyback (FLAGYL) 500 mg INTRAVENOUS q 8 H sulfamethoxazole-trimethoprim 800-160 mg 1 tablet (BACTRIM DS,SEPTRA DS) 1 tablet ORAL MO- gabapentin 300 mg cap(s) (NEURONTIN) 300 mg [...] discussed with staff. SIGNATURE: [place] [id number] DATE of SERVICE: August 28, 2017 TIME of SERVICE: 1:56 PM [facility] PHYSIC[facility] NOTE OF PERSONAL INVOLVEMENT IN CARE I have reviewed the documentation obtained and documented by the team healthcare provider (fellow, resident, nurse practitioner or physician cement tester assistant) and I personally participated in the fernandes components. I have discussed the case and management of the patient's care and the note has been revised / addended to reflect my direct input. Gael Simmons MD FACP [facility] Medicine Staff PAGER: [phone] DATE of Service: 08/28/2017 TIME of Service: 3:05 PM CONSULT PROG Observed: 08/28/2017 Status: COMPLETED Source: [place] 1:03 PM [facility] REPOSITORY HNO ID: [id number] Author: Dominique Wright Service: Infectious Disease Author Type: Physician Type: Consult Progress Note Filed: 08/28/2017 2:34 PM Note Text: INFECTIOUS DISEASE CONSULT SERVICE PROGRESS NOTE Date: August 28, 2017 Patient Name: Paloma Cannon Interval History: Doing well. MEDICATIONS Current Facility-Administered Medications: ampicillin 2 g in NaCl 0.9% 100 mL MB+/ADD-[place] 2 g INTRAVENOUS q 6 H diphenhydrAMINE [...] CASE MANAGEM Observed: 08/28/2017 Status: COMPLETED Source: [place] 12:18 PM [facility] REPOSITORY HNO ID: [id number] Author: Hailey Cunningham Service: Care Management Author Type: Exposure Machine Operator Type: Care Mgt Progress Note Filed: 08/28/2017 12:19 PM Note Text: CARE MANAGEMENT PROGRESS NOTE SERVICE DATE: 08/28/2017 SERVICE TIME: 11:37 LOS: 3 days IM letter given to patient on 08/28/2017. SIGNATURE: Hailey Cunningham, PATIENT NAME: Paloma Cannon DATE: August 28, 2017 TIME: 12:18 PM PAGER/CONTACT #: [phone] PLAN OF CARE Observed: 08/28/2017 Status: COMPLETED Source: [place] 11:58 AM [facility] REPOSITORY HNO ID: [id number] Author: Geraldine Lazar (Manager Business Process) Service: (none) Author Type: (none) Type: Plan of Care Filed: 09/06/2017 2:07 PM Note Text: FIELD CANE SCALE CLERK BEDSIDE DELIVERY SURVEY 1. Patient to use [facility] Bedside Delivery - NO time 2. [...] the medication and could take it to [facility] if needed. PLAN OF CARE Observed: 08/28/2017 Status: COMPLETED Source: [place] 11:45 AM [facility] REPOSITORY HNO ID: [id number] Author: Justina Pollard (Pa) Service: Hematology Author Type: Physician Farm Management Agent Type: Plan of Care Filed: 08/28/2017 2:53 [...] questions Discussed with Dr.Samaras Justina Pollard PA-C [id number] CASE MGT INIT Observed: 08/28/2017 Status: COMPLETED Source: [facility] 10:16 AM [facility] [place] REPOSITORY HNO ID: [id number] Author: Dary (Rn) JEFF Jimenes Service: Care Management Author Type: Registered Nurse Type: Care Mgt Initial Assessment Filed: 08/28/2017 10:26 AM Note Text: CARE MANAGEMENT: ASSESSMENT AND DISCHARGE PLAN SERVICE DATE: 08/28/2017 SERVICE TIME: 10:17 AM PRIMARY CARE PHYSICIAN: PEYTON ROGERS MD ADMISSION STATUS: Inpatient POTENTIAL DISCHARGE PLANS Home To Be Determined Patient/Recruiting Operations Consultant Stated Goals: to return home Needs Prior to Discharge: To Be Determined Health Insurance: Medicare, Medicaid Living Arrangement: Home Lives With: Spouse Financial Resources: N/A Primary Contact: Extended Emergency Contact Information Primary Emergency Contact: Morteza Cannon Address: [address] [place] [address] [address] [place] [address] [facility] Mobile Relation: Spouse Secondary Emergency Contact: Morgan [...] No Has the Patient Been in a Alf Facility in the Past 30 days? N/A [...] (triple positive with + lupus anticoagulant, + emde-s1-wjknjapkjzyi, and + anti-cardiolipin antibodies, she is on [...] given V and Z and transferred to [facility] for further management. Introduced myself to [...] 28, 2017 TIME: 10:17 AM PAGER/CONTACT #: [phone] [facility] Observed: 08/28/2017 Status: COMPLETED Source: [place] 8:49 AM [facility] REPOSITORY HNO ID: [id number] Author: Darrell (Mph) Gildardo Service: Infection Prevention [...] 28, 2017 TIME: 8:50 AM PAGER/CONTACT #: [phone] Infection Prevention after hours/weekend pager: [phone] VANCOMYCIN Collected: 08/28/2017 Status: F Source: [place] 4:28 AM [facility] REPOSITORY TYPE CODE TESTS RESULT OUT OF REFERENCE UNITS RANGE LAB VANCRA 5.0-20.0 ug/mL High Vancomycin 29.9 Result Comment: Reference ranges and high/low indicator flags are provided as general guidelines only. The treating physician must determine appropriate target levels/dosing based on the specific clinical situation. Performed By: #### VANCRA, PT, CBCDIF, BMP, HFP #### [facility] [address], [place] [address] PROTIME Collected: 08/28/2017 Status: F Source: [place] 4:28 AM [facility] REPOSITORY TYPE CODE TESTS RESULT OUT OF RANGE REFERENCE UNITS LAB PSEC 9.7-13.0 sec High PT Sec 35.0 LAB INR 0.9-1.3 High PT INR 3.7 Result Comment: Vitamin K Antagonist (VKA) Therapeutic Range: INR 2 to 3 (Target INR of 2.5) Note: For patients treated with VKA drugs, such as warfarin, the [place] Physicians 2012 Guideline recommends [...] Chest 2012, 141:7S-47S Diogenes RESENDIZ, et al. [facility] 2017, 70: 252-289 Performed By: #### VANCRA, PT, CBCDIF, BMP, HFP #### [facility] [address] [place], [place] [address] CBC AND DIFFERENTIAL Collected: 08/28/2017 Status: F Source: [place] 4:28 AM [facility] [place] REPOSITORY TYPE CODE TESTS RESULT OUT OF [...] Abs 0.12 Low Lymph LAB AMONO % Hughes% 5.8 LAB AAMONO <0.87 k/uL Abs 0.15 Hughes LAB AEOS % 3.9 Eosin% LAB AAEOS <0.46 k/uL Abs 0.10 Eosin LAB ABASO % Baso% 0.8 LAB AABASO <0.11 k/uL Abs <0.03 Baso LAB AUNRBC 0 /100 WBC NRBCs 0.0 LAB ABNRBC <0.01 k/uL <0.01 Absolute nRBC LAB DTYP DTYPE Auto Diff Performed By: #### MANUEL, PT, CBCDIF, BMP, HFP #### [facility] [address] [place], [place] [address] BASIC METABOLIC PANL Collected: 08/28/2017 Status: F Source: [place] 4:28 AM [facility] REPOSITORY TYPE CODE TESTS RESULT OUT OF REFERENCE UNITS RANGE LAB GLU 74-99 mg/dL Glucose 78 Result Comment: The [place] Diabetes Association (ADA) provides guidance for cutoff [...] Standards of Medical Care in Diabetes 2016, [place] Diabetes Association. Diabetes Care. 2016.39(Suppl 1). LAB [...] CBCDIF, BMP, HFP #### [facility] [address], [place] [address] HEPATIC FUNCTN PANEL Collected: 08/28/2017 Status: F Source: [place] 4:28 AM [facility] REPOSITORY TYPE CODE TESTS RESULT OUT OF [...] CBCDIF, BMP, HFP #### [facility] [address] [place], [place] [address] CONSULT PROG Observed: 08/27/2017 Status: COMPLETED Source: [place] 2:10 PM [facility] REPOSITORY HNO ID: [id number] Author: Dominique Wright Service: Infectious Disease Author [...] p.m. CONSULT Observed: 08/27/2017 Status: COMPLETED Source: [place] 12:54 PM [facility] REPOSITORY HNO ID: [id number] Author: Dominique Rios Service: Hematology/Oncology Author Type: Physician Type: Consults Filed: 08/27/2017 4:09 PM Note Text: Hematology Consult Note PATIENT NAME: Paloma Martinez [facility] NO.: [id number] REQUESTING SERVICE: Internal Medicine History of Present [...] Lymph 1.00 - 4.00 k/uL 0.11 (L) Hughes% % 3.9 Abs Hughes <0.87 k/uL 0.06 Eosin% % 2.6 Abs [...] call or page with questions. Dominique Rios, DO Hematology Consult Service Pager [phone] PT ED Observed: 08/27/2017 Status: COMPLETED Source: [place] 11:22 AM [facility] REPOSITORY O ID: [id number] Author: Thuy Mills (Pharmacist) Service: Pharmacy Author [...] Mon,, Wed, , Fri Outpatient follow-up plan: Pt reports she gets her INR checked at Dr. Guillaume Fuller' office ([facility] physician) with his RETAIL DISTRICT MANAGER Magdalena Indication for warfarin: deep vein thrombosis [...] Guillaume Fuller' office of [facility] with his RETAIL DISTRICT MANAGER Magdalena Patient extremely pleasant and well-versed on warfarin. States she has been on warfarin since ~2013 Anahi Do (Government Affairs Manager) [place]hy [place], PharmD [address] NUTRITION Observed: 08/27/2017 Status: COMPLETED Source: [place] 9:11 AM [facility] REPOSITORY O ID: [id number] Author: Edel Matson (Rony Berg Service: Nutrition Therapy Author Type: Registered [...] Estimated kilocalorie needs: 2113 kilocalories determined by [place] Jeor x 1.3 Estimated protein needs:93-112 grams [...] August 27, 2017 TIME: 9:11 AM PAGER: [phone] PROGRESS Observed: 08/27/2017 Status: COMPLETED Source: [place] 8:21 AM [facility] REPOSITORY HNO ID: [id number] Author: Kwesi Manriquez Service: General Internal Medicine [...] INTRAVENOUS q 12 HR Jose Manuel (Res) Rojelio 1.5 g at 08/26/17 183 diphenhydrAMINE 25 mg in D5W 50 mL 25 mg INTRAVENOUS PRN Lorna (Res) Gandhy 25 mg at 08/27/17 0818 prochlorperazine 5 mg injection (COMPAZINE) 5 mg INTRAVENOUS q 4 H PRN Lorna (Res) Gandhy 5 mg at 08/26/172046 metroNIDAZOLE 500 mg PREMIX piggyback (FLAGYL) 500 mg INTRAVENOUS q 8 H Lorna (Res) Gandhy 500 mg at 08/27/17 0502 cyclophosphamide 200 mg cap(s) (CYTOXAN) 200 mg ORAL DAILY Kwesi K [place] 200 mg at 08/26/17 1731 sulfamethoxazole-trimethoprim 800-160 [...] Yasmine Lovell MD Internal Medicine, PGY-1 Pager: [phone] *Note: On Weekdays from 5pm to 7am and Weekends from 3pm to 7am, please page the on-call pager ([phone]).* [facility] NOTE OF PERSONAL INVOLVEMENT IN [...] counseling and/or coordinating care for the patient. Uphs-zz-ngdk time was [address] Simmons assumes service tomorrow. Kwesi Manriquez MD Beeper Number: [id number]. Date of Service: August 27, 2017 Time of Service: 11.20 AM. TYPE AND SCREEN Collected: 08/27/2017 Status: F Source: [place] 7:00 AM [facility] REPOSITORY TYPE CODE TESTS RESULT OUT OF REFERENCE UNITS RANGE LAB %ABR B ABO/RH(D) POSITIVE LAB % Antibody POS Screen Performed By: #### TSCR #### [facility] [address] [place] [address] PROTEIN/CREATININE RATIO Collected: Status: F Source: [place] 08/27/2017 5:56 AM [facility] REPOSITORY TYPE CODE TESTS RESULT OUT OF REFERENCE UNITS RANGE LAB UTPR 0-20 mg/dL Protein Urine 17 Random LAB UCRR 20-300 mg/dL Creatinine,Ur 49.4 ine,Ran LAB PCRAT <0.2 High Protein/Creat 0.3 inine Ratio Performed By: #### PRATIO #### [facility] [address] [place] [address] SODIUM,URINE,RANDOM Collected: Status: F Source: [place] 08/27/2017 5:56 AM [facility] REPOSITORY TYPE CODE TESTS RESULT OUT OF RANGE REFERENCE UNITS LAB UNAR 14-216 mmol/L 28 Sodium,Urine ,Random Performed By: #### UNAR #### [facility] [address] [place] [address] PROTIME Collected: 08/27/2017 Status: F Source: [place] 5:06 AM [facility] REPOSITORY TYPE CODE TESTS RESULT OUT OF RANGE REFERENCE UNITS LAB PSEC 9.7-13.0 sec High PT Sec 33.9 LAB INR 0.9-1.3 High PT INR 3.5 Result Comment: Vitamin K Antagonist (VKA) Therapeutic Range: INR 2 to 3 (Target INR of 2.5) Note: For patients treated with VKA drugs, such as warfarin, the [place] College of Chest Physicians 2012 Guideline recommends [...] Chest 2012, 141:7S-47S Diogenes RESENDIZ et al. [facility] 2017, 70: 252-289 Performed By: #### PT, BMP, MG1, PHOS, CBCDIF #### [facility] [address] [place], [place] [address] BASIC METABOLIC PANL Collected: 08/27/2017 Status: F Source: [place] 5:06 AM [facility] REPOSITORY TYPE CODE TESTS RESULT OUT OF REFERENCE UNITS RANGE LAB GLU 74-99 mg/dL Glucose 96 Result Comment: The [place] Diabetes Association (ADA) provides guidance for cutoff [...] Standards of Medical Care in Diabetes 2016, [place] Diabetes Association. Diabetes Care. 2016.39(Suppl 1). LAB [...] MG1, PHOS, CBCDIF #### [facility] [address] [place] [address] MAGNESIUM Collected: 08/27/2017 Status: F Source: [place] 5:06 AM [facility] REPOSITORY TYPE CODE TESTS RESULT OUT OF REFERENCE UNITS RANGE LAB MG 1.7-2.3 mg/dL Magnesium 2.2 Performed By: #### PT, BMP, MG1, PHOS, CBCDIF #### [facility] [address] [place] [id number] PHOSPHORUS Collected: 08/27/2017 Status: F Source: [place] 5:06 AM [facility] REPOSITORY TYPE CODE TESTS RESULT OUT OF REFERENCE UNITS RANGE LAB PHOS 2.7-4.8 mg/dL Phosphorus 4.7 Performed By: #### PT, BMP, MG1, PHOS, CBCDIF #### [facility] [address] [place] [id number] CBC AND DIFFERENTIAL Collected: 08/27/2017 Status: F Source: [place] 5:06 AM [facility] REPOSITORY TYPE CODE TESTS RESULT OUT OF [...] Abs Lymph Low 0.11 LAB AMONO % Hughes% 3.9 LAB AAMONO <0.87 k/uL Abs Hughes 0.06 LAB AEOS % Eosin% 2.6 LAB [...] MG1, PHOS, CBCDIF #### [facility] [address] [place], [place] [address] Observed: 08/26/2017 Status: F Source: [place] BLOOD CULTURE 6:43 PM [facility] REPOSITORY Culture Result - No growth 5 days Performed By: #### BLCUL #### [facility] [address] [place], [place] [address] Observed: 08/26/2017 Status: F Source: [place] BLOOD CULTURE 6:28 PM [facility] REPOSITORY Additional Testing - Methicillin resistant Staphylococcus epidermidis (MRSE) detected by microarray. Single positive cultures of S. epidermidis usually represent contamination. Call lab within 72 h if f urther work up is required. Negative for Streptococcus spp. and Enterococcus spp. by microarray. Culture Result - Staphylococcus epidermidis Refer to specimen collected on 08/25/17 AT 1740 ([id number]) (NOTE) --> ABNORMAL ALERT Positive result called [...] By: #### BLCUL #### [facility] [address] [id number] XR ABDOMEN 1V SUPINE Observed: 08/26/2017 Status: F Source: [place] 4:33 PM [facility] REPOSITORY * * *Final Report* * * [...] Right upper quadrant clips. No Abnormal calcifications. Pie Topper: MURTAZA Transcribe Date/Time: Aug 26 2017 5:11P Dictated by : SARAI EVANS MD This examination was interpreted and the report reviewed and electronically signed by: SARAI EVANS MD on Aug 26 2017 5:13PM EST [id number] NURSING PROG Observed: 08/26/2017 Status: COMPLETED Source: [place] 3:15 PM [facility] REPOSITORY HNO ID: [id number] Author: Tigist (Rn) James, RN Service: (none) Author Type: Registered Nurse Type: Nursing Progress Note Filed: 08/26/2017 3:20 PM Note Text: Nursing Progress Note Patient Name: Paloma Cannon Patient Location: [place] [address] pt left This note was completed by: Tigist Ramirez RN RETICULOCYTE Collected: 08/26/2017 Status: F Source: [place] 1:48 PM [facility] REPOSITORY TYPE CODE TESTS RESULT OUT OF REFERENCE UNITS RANGE LAB RETC 0.4-2.0 % Retic% 1.5 LAB ABRET 0.0180-0.1000 M/uL Abs Retic 0.043 Performed By: #### RETIC, CMVQNT #### [facility] [address] [place] [address] CMV DNA QUANT BY Collected: 08/26/2017 Status: F Source: [place] PCR 1:48 PM [facility] REPOSITORY TYPE CODE TESTS RESULT OUT OF REFERENCE UNITS RANGE LAB CMVIU IU/mL CMV CMV DNA not DNA (IU/mL) detected by PCR. Result Comment: Linear Range 137 - 9,100,000 IU/mL (2.14 - 6.96 log IU/mL) Reference Range: Negative for CMV DNA Performed By: #### RETIC, CMVQNT #### [facility] [address] [address] FUNGAL BATTERY - CF Collected: 08/26/2017 Status: F Source: [place] 1:48 PM [facility] REPOSITORY TYPE CODE TESTS RESULT OUT OF [...] Negative <1:2 Performed By: #### FUNCF #### [facility] [address], [place] [address] CONSULT Observed: 08/26/2017 Status: COMPLETED Source: [place] 1:38 PM [facility] REPOSITORY HNO ID: [id number] Author: Dominique Wright Service: Infectious Disease Author [...] 08/25 are growing GPC pairs, chains. Awaiting Aktivito data on initial identification. Stool positive for [...] 2:20 p.m. Observed: 08/26/2017 Status: F Source: [place] URINE CULTURE 1:31 PM [facility] REPOSITORY Sp. Request/Comment: - Specimen received in preservative Culture Result - No growth (<1,000 CFU/ml) Performed By: #### URCUL #### [facility] [address] [place], [place] [address] C DIFFICILE PCR Collected: 08/26/2017 Status: F Source: [place] 9:28 AM [facility] REPOSITORY TYPE CODE TESTS RESULT OUT OF RANGE REFERENCE UNITS LAB CDFRES C Abnormal difficile PCR Positive for Alert C. difficile toxin by PCR Result Comment: Called to and read back by: Clarence TORRES ON 08/26/17 AT 1352 TO Asif GASTON Performed By: #### CDPCR #### [facility] [address] [place], [place] [address] CONSULT PROG Observed: 08/26/2017 Status: COMPLETED Source: [place] 8:28 AM [facility] REPOSITORY HNO ID: [id number] Author: Daysi Rodriguez (Cost And Sales Record Supervisor) Service: Pharmacy Author Type: Pharmacist Type: Consult [...] you have any questions, please contact [place] uY at [phone]. Age: [age] year old Allergies: ALLERGIES Allergen [...] 03/19/2017 23.9 (H) 03/17/2017 19.7 DAYSI RODRIGUEZ, RUBBER AND POUNDER PLAN OF CARE Observed: 08/26/2017 Status: COMPLETED Source: [place] 8:09 AM [facility] REPOSITORY HNO ID: [id number] Author: Lorna Dowling Service: General Internal Medicine Author Type: Resident Type: Plan of Care Filed: 08/26/2017 8:10 AM Note Text: Patient transferred to [facility] Service on August 26, 2017. ? Nutrition Aide (first call)- Yasmine Russo; Pager [phone]. ? Resident: Lorna Dowling MD, PhD; Pager [phone]. Staff: Kwesi Manriquez MD. PROTIME Collected: 08/26/2017 Status: F Source: [place] 5:01 AM [facility] REPOSITORY TYPE CODE TESTS RESULT OUT OF RANGE REFERENCE UNITS LAB PSEC 9.7-13.0 sec High PT Sec 24.1 LAB INR 0.9-1.3 High PT INR 2.5 Result Comment: Vitamin K Antagonist (VKA) Therapeutic Range: INR 2 to 3 (Target INR of 2.5) Note: For patients treated with VKA drugs, such as warfarin, the [place] [employer] of [employer]icians 2012 Guideline recommends [...] Chest 2012, 141:7S-47S Diogenes RA, et al. JAC 2017, 70: 252-289 Performed By: #### PT, BMP, MG1, PHOS, CBCDIF #### [facility] [address] [address] BASIC METABOLIC PANL Collected: 08/26/2017 Status: F Source: [place] 5:01 AM [facility] REPOSITORY TYPE CODE TESTS RESULT OUT OF REFERENCE UNITS RANGE LAB GLU 74-99 mg/dL Low Glucose 73 Result Comment: The [place] Diabetes Association (ADA) provides guidance for cutoff [...] Standards of Medical Care in Diabetes 2016, [place] Diabetes Association. Diabetes Care. 2016.39(Suppl 1). LAB [...] MG1, PHOS, CBCDIF #### [facility] [address], [place] [address] MAGNESIUM Collected: 08/26/2017 Status: F Source: [place] 5:01 AM [facility] REPOSITORY TYPE CODE TESTS RESULT OUT OF REFERENCE UNITS RANGE LAB MG 1.7-2.3 mg/dL Low Magnesium 1.6 Performed By: #### PT, BMP, MG1, PHOS, CBCDIF #### [facility] [address] [place], [place] [address] PHOSPHORUS Collected: 08/26/2017 Status: F Source: [place] 5:01 [facility] REPOSITORY TYPE CODE TESTS RESULT OUT OF REFERENCE UNITS RANGE LAB PHOS 2.7-4.8 mg/dL Phosphorus 2.7 Performed By: #### PT, BMP, MG1, PHOS, CBCDIF #### [facility] [address] [place], [place] [address] CBC AND DIFFERENTIAL Collected: 08/26/2017 Status: F Source: [place] 5: [facility] REPOSITORY TYPE CODE TESTS RESULT OUT [...] Abs 0.18 Low Lymph LAB AMONO % Hughes% 11.1 LAB AAMONO <0.87 k/uL Abs 0.23 Hughes LAB AEOS % 2.4 Eosin% LAB AAEOS <0.46 k/uL Abs 0.05 Eosin LAB ABASO % Baso% 1.0 LAB AABASO <0.11 k/uL Abs <0.03 Baso LAB AUNRBC 0 /100 WBC NRBCs 0.0 LAB ABNRBC <0.01 k/uL <0.01 Absolute nRBC LAB DTYP DTYPE Auto Diff Performed By: #### PT, BMP, MG1, PHOS, CBCDIF #### [facility] [address] [id number] URINALYSIS WITH Collected: 08/25/2017 Status: F Source: [facility] 11:09 PM [facility] REPOSITORY TYPE CODE TESTS RESULT OUT OF RANGE REFERENCE UNITS LAB UCOL Yellow Color Abnormal Lisseth Alert LAB [facility] Clear Clarity Abnormal Cloudy Alert LAB UGLUC Negative mg/dL Glucose, Urine Negative LAB UBIL Negative Bilirubin, Urine Negative LAB UKET Negative Ketones, Urine Negative LAB USPG 1.005-1.030 Specific [place], Ur 1.017 LAB UHGB Negative Abnormal Hemoglobin/Blood, [...] By: #### UAWMIC #### [facility] [address] [facility] [place], [place] [address] NURSING PROG Observed: 08/25/2017 Status: COMPLETED Source: [place] 10:55 PM [facility] REPOSITORY HNO ID: [id number] Author: Rachael (Rn) JEFF Andrade Service: Nursing Author Type: Registered Nurse Type: Nursing Progress Note Filed: 08/26/2017 12:34 AM Note Text: Admission/Transfer Note PATIENT NAME: Paloma Cannon Patient admitted from ED via stretcher in stable condition. Notified Of sepsis care path triger. Actions taken: Patient oriented to room, call light function, prescribed activities, Patient rights and Quiet at night. This note was completed by: Rachael Andrade RN HISTORY PHYSICAL Observed: 08/25/2017 Status: COMPLETED Source: [place] 9:45 PM [facility] REPOSITORY HNO ID: [id number] Author: Kwesi Manriquez Service: General Internal Medicine [...] she decided to come to ED at [facility]. When she presented she was febrile, un [...] (FLONASE) 50 mcg/actuation nasal spray Use 1 [place] in each nostril once daily. Disp: Rfl: [...] triple positive with + lupus anticoagulant, + uwhq-v1-ymukqkcsmyod, and + anti-cardiolipin antibodies, she is on [...] slower rate History of HIT (heparin-induced thrombocytopenia) ([facility]) She is on coumadin for this reason She has pancytopenia now, possibly related to Cytoxan Plan: - Avoid heparin products - Daily CBC Recurrent Deep Vein Thrombosis (Dvt) ([facility]) Complicated by PE AND?DVT 09/2013 (s/p b/l iliac v. stents and Endoglix AFX endograft at the inferior vena caval bifurcation) on Warfarin (h/o HIT) extensive thrombectomy at outside hospital for right lower extremity and IVC thrombus. Plan: - Continue Warfarin 7.5 - Monitor INR SIGNATURE: Jcarlos Estrada MD PATIENT NAME: Paloma Cannon DATE: August 25, 2017 TIME: 9:46 PM PAGER/CONTACT #: [phone] [facility] Addendum Please refer to excellent note by [...] (triple positive with + lupus anticoagulant, + zqsn-g4-qajqjtgcdqfe, and + anti-cardiolipin antibodies, she is on [...] given V and Z and transferred to [facility] for further management. PHYSICAL EXAM Blood [...] (triple positive with + lupus anticoagulant, + qsyw-o5-szoazwhtljhe, and + anti-cardiolipin antibodies, - She is [...] (L) 0.20 (L) 0.13 (L) 0.18 (L) Hughes% 4.6 6.2 8.7 6.5 11.1 Abs Hughes 0.31 0.35 0.28 0.19 0.23 Eosin% 5.1 [...] Manuel Serrato MD Internal Medicine PGY-3 Pager [phone] August 25, 2017 11:02 PM. [facility] NOTE OF PERSONAL INVOLVEMENT IN CARE: Patient seen with overnight admitting team and Vipul team Rupa. I have reviewed the history and physical [...] counseling and/or coordinating care for the patient. Ttel-rm-kqlu time was 25 minutes. Kwesi Manriquez MD Beeper Number: [id number]. Date of Service: August 26, 2017 Time of Service: 11.14 AM. PT ED Observed: 08/25/2017 Status: COMPLETED Source: [place] 8:54 PM [facility] REPOSITORY HNO ID: [id number] Author: [facility] Provider Service: (none) Author Type: Physician Type: Patient Education Filed: 08/25/2017 8:54 PM Note Text: [facility] Patient Education Report --------- Name: PALOMA MARTINEZ Date: 08/25/2017 Time: 8:53 PM Patient Ordered Video: Inpatient Falls from [id number] via phone number [phone] at 8:53 PM ED NOTE Observed: 08/25/2017 Status: COMPLETED Source: [place] 8:05 PM [facility] REPOSITORY HNO ID: [id number] Author: Aubree SanchezRn) Masha, JEFF Service: Emergency Medicine Author Type: Registered Nurse Type: ED Notes Filed: 08/25/2017 8:09 PM Note Text: VSS. Transported to [facility] via cart escorted by medic. Remains stable. Spouse at bedside. Belongings at side. 2nd liter of IVF continue to infuse as ordered; see MAR. IV antibiotics hung and infusing as ordered; see MAR. ED NOTE Observed: 08/25/2017 Status: COMPLETED Source: [place] 7:56 PM [facility] REPOSITORY HNO ID: [id number] Author: Aubree (Rn) Masha, RN Service: Emergency Medicine Author Type: Registered Nurse Type: ED Notes Filed: 08/25/2017 7:57 PM Note Text: Report to [facility] on [facility]; bed ready. Awaiting transport. PROGRESS Observed: 08/25/2017 Status: COMPLETED Source: [place] 6:35 PM [facility] REPOSITORY HNO ID: [id number] Author: Sue SanchezRtDevonte Bah Service: Radiology Author Type: [employer] Machine Operator Type: Progress Notes Filed: 08/25/2017 6:35 PM [...] 1V FRONTAL Observed: 08/25/2017 Status: F Source: [facility] 6:34 PM [facility] REPOSITORY * * *Final Report* * * [...] NEW CARDIOPULMONARY FINDINGS. IMPROVEMENT IN PULMONARY EDEMA. Pie Topper: MURTAZA Transcribe Date/Time: Aug 25 2017 6:49P Dictated by : MARK LARA MD This examination was interpreted and the report reviewed and electronically signed by: MARK LARA MD on Aug 25 2017 6:55PM EST [id number] ED NOTE Observed: 08/25/2017 Status: COMPLETED Source: [place] 6:22 PM [facility] REPOSITORY HNO ID: [id number] Author: Marissa Sauer) JEFF Cormier Service: Emergency [...] ED NOTE Observed: 08/25/2017 Status: COMPLETED Source: [place] 6:21 PM [facility] [place] REPOSITORY HNO ID: [id number] Author: Marissa SanchezRn) JEFF Cormier Service: Emergency Medicine Author Type: Registered Nurse Type: ED Notes Filed: 08/25/2017 6:22 PM Note Text: Flu swab obtained and sent to POC IV fluid bolus infusing 1st liter up. ED PROV NOTE Observed: 08/25/2017 Status: COMPLETED Source: [place] 5:56 PM [facility] REPOSITORY HNO ID: [id number] Author: Ishaan Byrne MD Service: Emergency Medicine [...] ED NOTE Observed: 08/25/2017 Status: COMPLETED Source: [place] 5:48 PM [facility] [place] REPOSITORY HNO ID: [id number] Author: Marissa Cormier RN Service: Emergency Medicine Author Type: Registered Nurse Type: ED Notes Filed: 08/25/2017 5:48 PM Note Text: X ray at bedside to do port chest film ED NOTE Observed: 08/25/2017 Status: COMPLETED Source: [place] 5:46 PM [facility] [place] REPOSITORY HNO ID: [id number] Author: Marissa Sauer) JEFF Cormire Service: Emergency Medicine Author Type: Registered Nurse Type: ED Notes Filed: 08/25/2017 5:47 PM Note Text: Assumed care of the patient. Triage note reviewed. Labs obtained, including blood cultures and sent to the lab. Update report taken from Charge nurse. ED NOTE Observed: 08/25/2017 Status: COMPLETED Source: [place] 5:46 PM [facility] [place] REPOSITORY HNO ID: [id number] Author: Zhou (Osmin Wilhelm Service: Emergency Medicine Author Type: Telecommunications Clerk and [employer] Machine Operator Type: ED Notes Filed: 08/25/2017 5:46 PM Note Text: Labs including Lactic acid drawn and sent ED NOTE Observed: 08/25/2017 Status: COMPLETED Source: [place] 5:40 PM [facility] [place] REPOSITORY HNO ID: [id number] Author: Mari Sauer) Shaka, RN Service: Emergency Medicine Author Type: Registered Nurse Type: ED Notes Filed: 08/25/2017 5:46 PM Note Text: Blood cultures 2nd set drawn from R chest central line and sent. Observed: 08/25/2017 Status: F Source: [place] BLOOD CULTURE 5:40 PM [facility] REPOSITORY Culture Result - Enterococcus faecalis Cephalosporins, clindamycin, and TMP-SMX are not effective for the treatment of enterococcal infections. --> ABNORMAL ALERT Refer to specimen collected on --&gt ; ABNORMAL ALERT 1730 ([id number]) --> ABNORMAL ALERT Staphylococcus epidermidis --> ABNORMAL ALERT (NOTE) --> ABNORMAL ALERT Positive result called to and read back by: Briana Torres Lauren vargas G81 --> ABNORMAL ALERT 08/26/17 0835 Ismael Munoz --> ABNORMAL ALERT Preliminary Gram stain. Gram positive cocci in clusters(*) Called to --> ABNORMAL ALERT and read back by: Briana Torres 08/27/2017 1410 to Rufino Martell. --> ABNORMAL ALERT ORGANISM: Staphylococcus epidermidis [...] By: #### BLCUL #### [facility] [facility] [address] [place], [place] [address] ED NOTE Observed: 08/25/2017 Status: COMPLETED Source: [place] 5:38 PM [facility] REPOSITORY HNO ID: [id number] Author: Mari Sauer) Matt, RN Service: Emergency Medicine Author Type: Registered Nurse Type: ED Notes Filed: 08/25/2017 5:46 PM Note Text: Labs including lactate drawn and sent ED NOTE Observed: 08/25/2017 Status: COMPLETED Source: [place] 5:30 PM [facility] REPOSITORY HNO ID: [id number] Author: Zhou (Medic) Osmin Medrano Service: Emergency Medicine Author Type: Telecommunications Clerk and Kapok And Cotton Machine Operator Type: ED Notes Filed: 08/25/2017 5:45 PM Note Text: Blood cultures drawn and sent.BC#1 RH via straight stick CBC AND DIFFERENTIAL Collected: 08/25/2017 Status: F Source: [place] 5:30 PM [facility] REPOSITORY TYPE CODE TESTS RESULT OUT OF [...] Abs 0.13 Low Lymph LAB AMONO % Hughes% 6.5 LAB AAMONO <0.87 k/uL Abs 0.19 Hughes LAB AEOS % 1.7 Eosin% LAB AAEOS <0.46 k/uL Abs 0.05 Eosin LAB ABASO % Baso% 1.0 LAB AABASO <0.11 k/uL Abs 0.03 Baso LAB AUNRBC 0 /100 WBC NRBCs 0.0 LAB ABNRBC <0.01 k/uL <0.01 Absolute nRBC LAB DTYP DTYPE Auto Diff Performed By: #### CBCDIF, CMP #### [facility] [address] [place], [place] [address] COMP METABOLIC PANEL Collected: 08/25/2017 Status: F Source: [place] 5:30 PM [facility] REPOSITORY TYPE CODE TESTS RESULT OUT OF [...] mg/dL Low Glucose 67 Result Comment: The [place] Diabetes Association (ADA) provides guidance for cutoff [...] Standards of Medical Care in Diabetes 2016, [place] [employer]. Diabetes Care. 2016.39(Suppl 1). LAB [...] #### CBCDIF, CMP #### [facility] [address] [place], [place] [address] PROTIME Collected: 08/25/2017 Status: F Source: [place] 5:30 PM [facility] REPOSITORY TYPE CODE TESTS RESULT OUT OF RANGE REFERENCE UNITS LAB PSEC 9.7-13.0 sec High PT Sec 21.4 LAB INR 0.9-1.3 High PT INR 2.2 Result Comment: Vitamin K Antagonist (VKA) Therapeutic Range: INR 2 to 3 (Target INR of 2.5) Note: For patients treated with VKA drugs, such as warfarin, the [place] [employer] 2012 Guideline recommends [...] JACC 2017, 70: 252-289 Performed By: #### PT #### [facility] [address] [place], [place] [address] Observed: 08/25/2017 Status: F Source: [place] BLOOD CULTURE 5:30 PM [facility] REPOSITORY Culture Result - Enterococcus faecalis Cephalosporins, clindamycin, and TMP-SMX are not effective for the treatment of enterococcal infections. --> ABNORMAL ALERT Beta lactamase Negative --> ABNOR MAL ALERT Staphylococcus epidermidis --> ABNORMAL ALERT Refer to specimen collected on --> ABNORMAL ALERT 08/25/17 AT 1740 ([id number]) --> ABNORMAL ALERT (NOTE) Positive result called to and read back by:Roxana [id number] 08/26/17 1414 BBlum ORGANISM: Enterococcus faecalis METHOD: [...] also susceptible. Performed By: #### BLCUL #### [facility] [address] [place], [place] [address] ED NOTE Observed: 08/25/2017 Status: COMPLETED Source: [place] 5:15 PM [facility] REPOSITORY HNO ID: [id number] Author: Mark (Rn) JEFF Lu Service: (none) Author Type: Registered Nurse Type: ED Notes Filed: 08/25/2017 5:15 PM Note Text: Bed: E12-09 Expected date: Expected time: Means of arrival: Comments: Fever with hx PROTHROMBIN TIME W/INR Collected: 08/25/2017 Status: F Source: [place] 8:03 AM [facility] REPOSITORY Order Comment: MEDOUT/PORT DRAW TYPE CODE TESTS RESULT OUT OF RANGE REFERENCE UNITS LAB L300.4150 11.7-14.9 SECONDS High PROTIME 21.4 LAB L300.4200 Normal INR 1.9 Performed By: #### L300.3900 #### [facility] [address] [facility] [place], [address] HOSP Observed: 08/25/2017 Status: COMPLETED Source: [place] 12:00 AM [facility] REPOSITORY Patient:Paloma Martinez MRN: <[id number]> Height:5' 2.992(1.6 m) Weight:209 lb 9.6 oz [...] mg 24 hr tablet Miscellaneous Medical Supply [facility] cetirizine 10 mg tablet senna 8.6 mg [...] Acute on chronic respiratory failure with hypoxia ([facility]) [J96.21] Abdominal pain [R10.9] Severe protein-calorie [...] from R chest central line and sent. Osmin Gan, Medic 08/25/2017 5:46 PM Signed Labs including [...] Pawan August 25, 2017 6:35 PM Aubree Flanagan RN, RN 08/25/2017 7:57 PM Signed Report to [facility]-; bed ready. Awaiting transport. Aubree Flanagan RN, RN 08/25/2017 8:09 PM Addendum VSS. Transported to [facility] via cart escorted by medic. Remains stable. Spouse at bedside. Belongings at side. 2nd liter of IVF continue to infuse as ordered; see MAR. IV antibiotics hung and infusing as ordered; see MAR. Previous Version [facility] Provider 08/25/2017 8:54 PM Signed [facility] Patient Education Report ---- Name: PALOMA MARTINEZ Date: 08/25/2017 Time: 8:53 PM Patient Ordered Video: Inpatient Falls from [id number] via phone number [phone] at 8:53 PM Kwesi Manrqiuez MD 08/26/2017 11:15 AM Addendum INTERNAL MEDICINE [...] she decided to come to ED at [facility]. When she presented she was febrile, un [...] (FLONASE) 50 mcg/actuation nasal spray Use 1 [place] in each nostril once daily. Disp: Rfl: [...] Unknown at Unknown time Miscellaneous Medical Supply mis 1 package 30 - [...] triple positive with + lupus anticoagulant, + kfhg-e3-pngcijcijnvn, and + anti-cardiolipin antibodies, she is on [...] Renal vein thrombosis with additional insult in ' from contrast induced nephropathy. Per records her [...] slower rate History of HIT (heparin-induced thrombocytopenia) ([facility]) She is on coumadin for this reason She has pancytopenia now, possibly related to Cytoxan Plan: - Avoid heparin products - Daily CBC Recurrent Deep Vein Thrombosis (Dvt) ([facility]) Complicated by PE AND?DVT 09/2013 (s/p b/l iliac v. stents and Endoglix AFX endograft at the inferior vena caval bifurcation) on Warfarin (h/o HIT) extensive thrombectomy at outside hospital for right lower extremity and IVC thrombus. Plan: - Continue Warfarin 7.5 - Monitor INR SIGNATURE: Jcarlos Estrada MD PATIENT NAME: Paloma Cannon DATE: August 25, 2017 TIME: 9:46 PM PAGER/CONTACT #: [phone] [facility] Addendum Please refer to excellent note by [...] (triple positive with + lupus anticoagulant, + gvul-a5-vfbibmhigggm, and + anti-cardiolipin antibodies, she is on [...] In 03/2017 there was a concern for MRSMarily line related sepsis when she was d/c on COPAT with Daptomycin. She was also complaining of some burning with urination. No other s/s of nocturia, hematuria, frequency, urgency. When she presented to the ED, VS were consistent with Tm 102.1F, HR 111, BP 144/58. Blood cultures were drawn and she was given V and Z and transferred to [facility] for further management. PHYSICAL EXAM Blood [...] (triple positive with + lupus anticoagulant, + saje-p9-fevoehlrmxro, and + anti-cardiolipin antibodies, - She is [...] (L) 0.20 (L) 0.13 (L) 0.18 (L) Hughes% 4.6 6.2 8.7 6.5 11.1 Abs Hughes 0.31 0.35 0.28 0.19 0.23 Eosin% 5.1 [...] Manuel Serrato MD Internal Medicine PGY-3 Pager [phone] August 25, 2017 11:02 PM. [facility] ST[facility] NOTE OF PERSONAL INVOLVEMENT IN CARE: Patient seen with overnight admitting team and [place] team D. I have reviewed the history [...] counseling and/or coordinating care for the patient. Xkxw-va-sxjb time was 25 minutes. Kwesi Manriquez MD Beeper Number: [id number]. Date of Service: August 26, 2017 Time of Service: 11.14 AM. Previous Version Rachael Andrade RN, RN 08/26/2017 12:34 AM Addendum Admission/Transfer Note PATIENT NAME: Paloma Cannon Patient admitted from ED via stretcher in stable condition. Notified Of sepsis care path [facility]. Actions taken: Patient oriented to room, call light function, prescribed activities, Patient rights and Quiet at night. This note was completed by: Rachael Andrade RN Previous Version Lorna Dowling MD 08/26/2017 8:10 AM Signed Patient transferred to [facility] Service on August 26, 2017. ? Nutrition Aide (first call)- Yasmine Russo; Pager [phone]. ? Resident: Lorna Dowling MD, PhD; Pager [phone]. Staff: Kwesi Manriquez MD. DAYSI RODRIGUEZ, RUBBER AND POUNDER 08/26/2017 8:29 AM Signed PHARMACY VANCOMYCIN DOSING [...] any questions, please contact Rome Yu at [phone]. Age: [age] year old Allergies: ALLERGIES Allergen [...] 03/19/2017 23.9 (H) 03/17/2017 19.7 DAYSI RODRIGUEZ, RUBBER AND POUNDER Dominique Wright MD 08/26/2017 2:25 PM Addendum [...] 08/25 are growing GPC pairs, chains. Awaiting Aktivito data on initial identification. Stool positive for [...] 7.5) - Antiphospholipid antibody with hypercoagulable state ([facility]) 11/29/2016 Hx of APL syndrome c/b [...] nephrotoxic agents - DVT (deep venous thrombosis) ([facility]) - Elevated CA-125 11/30/2013 244 - Essential hypertension 10/08/2015 Stable on home medications Plan: -continue to monitor on home meds - 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 Bivalirudin to Warfarin bridging - HIT (heparin-induced thrombocytopenia) ([facility]) - Nontoxic multinodular goiter - Obese [...] (VANCOCIN) 0.015 g/kg/dose INTRAVENOUS q 12 HR Bryanilee (Haritha) Serrato 1.5 g at 08/26/17 1834 diphenhydrAMINE 25 mg in D5W 50 mL 25 mg INTRAVENOUS PRN Lorna (Haritha) Gandhy 25 mg at 08/27/17 0818 prochlorperazine 5 mg injection (COMPAZINE) 5 mg INTRAVENOUS q 4 H PRN Lorna (Haritha) Gandhy 5 mg at 08/26/17 2047 metroNIDAZOLE 500 mg PREMIX piggyback (FLAGYL) 500 mg INTRAVENOUS q 8 H Lorna (Haritha) Gandhy 500 mg at 08/27/17 0502 cyclophosphamide 200 mg cap(s) (CYTOXAN) 200 mg ORAL DAILY Kwesi K [place] 200 mg at 08/26/17 1731 sulfamethoxazole-trimethoprim 800-160 [...] Yasmine Lovell MD Internal Medicine, PGY-1 Pager: [phone] *Note: On Weekdays from 5pm to 7am and Weekends from 3pm to 7am, please page the on-call pager ([phone]).* [facility] PH[facility]IC[facility] NOTE OF PERSONAL INVOLVEMENT IN [...] counseling and/or coordinating care for the patient. Yuii-le-vfmj time was [address] Simmons assumes service tomorrow. Kwesi Manriquez MD Beeper Number: [id number]. Date of Service: August 27, 2017 Time [...] Estimated kilocalorie needs: 2113 kilocalories determined by [place] Jeor x 1.3 Estimated protein needs:93-112 grams [...] August 27, 2017 TIME: 9:11 AM PAGER: [phone] Thuy Mills Pharmacist 08/27/2017 12:28 PM Signed PHARMACY WARFARIN EDUCATION Patient Name: Paloma Cannon Account #: Data Unavailable Admission Date: 08/25/2017 5:15 PM Date of Contact: August 27, 2017 Time of Contact: 11:23 AM Patient new to warfarin? No: Previous (home) dosage: 7.5 mg Sat and Sun; 5 mg Mon,, Mon, , Fri Outpatient follow-up plan: Pt reports she gets her INR checked at Dr. Guillaume Fuller' office ([facility] physician) with his RETAIL DISTRICT MANAGER Magdalena Indication for warfarin: deep vein thrombosis [...] Guillaume Fuller' office of [facility] with his RETAIL DISTRICT MANAGER Magdalena Patient extremely pleasant and well-versed on warfarin. States she has been on warfarin since ~2013 Anahi Do (Government Affairs Manager) Thuy [place], PharmD [id number] Previous Version Dominique Rios, 08/27/2017 4:09 PM Addendum Hematology Consult Note PATIENT NAME: Paloma Martinez CLINIC NO.: [id number] REQUESTING SERVICE: Internal Medicine History of Present [...] Lymph 1.00 - 4.00 k/uL 0.11 (L) Hughes% % 3.9 Abs Hughes <0.87 k/uL 0.06 Eosin% % 2.6 Abs [...] call or page with questions. Dominique Rios, DO Hematology Consult Service Pager [phone] Previous Version Dominique Wright MD 08/27/2017 2:15 [...] 28, 2017 TIME: 8:50 AM PAGER/CONTACT #: [phone] Infection Prevention after hours/weekend pager: [phone] Dary Jimenes, RN, RN 08/28/2017 10:26 AM Signed CARE MANAGEMENT: ASSESSMENT AND DISCHARGE PLAN SERVICE DATE: 08/28/2017 SERVICE TIME: 10:17 AM PRIMARY CARE PHYSICIAN: PEYTON ROGERS MD ADMISSION STATUS: Inpatient POTENTIAL DISCHARGE PLANS Home To Be Determined Patient/Recruiting Operations Consultant Stated Goals: to return home Needs Prior to Discharge: To Be Determined Health Insurance: Medicare, Medicaid Living Arrangement: Home Lives With: Spouse Financial Resources: N/A Primary Contact: Extended Emergency Contact Information Primary Emergency Contact: Morteza Cannon Address: [address] [place] [id number] [place] [address] Mobile Relation: Spouse Secondary Emergency Contact: Luke Aikene Mobile Relation: Father Mother: Jane Aiken Supportive: [...] No Has the Patient Been in a Alf Facility in the Past 30 days? N/A [...] (triple positive with + lupus anticoagulant, + emvc-f5-dreqqkmxtorc, and + anti-cardiolipin antibodies, she is on [...] given V and Z and transferred to [facility] for further management. Introduced myself to patient and explained the role of CM. Patient lives with spouse and states IPTA. Patient has L Chest Tunneled line for pharesis and Central line in R Chest. Patient is on 2LNC at home, [facility]. Poss need for IV abx at DC. TCC/SW to follow DC needs/date TBD ? SIGNATURE: Dary Jimenes RN PATIENT NAME: Paloma Cannon DATE: August 28, 2017 TIME: 10:17 AM PAGER/CONTACT #: [phone] Justina Pollard PA-C 08/28/2017 2:53 PM Signed [...] with questions Discussed with Dr.Samaras Justina Pollard, PA-C [id number] Geraldine Lazar (Manager Business Process) 08/28/2017 11:58 AM Signed FIELD CANE SCALE CLERK BEDSIDE DELIVERY SURVEY 1. Patient to use [facility] Bedside Delivery - YES 2. If fax, patient would like us to fax prescriptions to Pharmacy of choice a. Pharmacy: b. Location: c. Phone: 3. Insurance card on file - YES 4. Credit card for payment - NO No prescriptions yet. Please page [phone] Hailey Cunningham, 08/28/2017 12:19 PM Signed CARE MANAGEMENT PROGRESS NOTE SERVICE DATE: 08/28/2017 SERVICE TIME: 11:37 LOS: 3 days IM letter given to patient on 08/28/2017. SIGNATURE: Hailey Cunningham, PATIENT NAME: Paloma Cannon DATE: August 28, 2017 TIME: 12:18 PM PAGER/CONTACT #: [phone] Dominique Wright MD 08/28/2017 2:34 PM Addendum INFECTIOUS DISEASE CONSULT SERVICE PROGRESS NOTE Date: August 28, 2017 Patient Name: Paloma Cannon Interval History: Doing well. MEDICATIONS Current Facility-Administered Medications: ampicillin 2 g in NaCl 0.9% 100 mL MB+/ADD-[place] 2 g INTRAVENOUS q 6 H diphenhydrAMINE [...] Version Gael Simmons MD 08/28/2017 3:05 PM [facility] Progress Note PATIENT NAME: Paloma Cannon Brief [...] 2 g in NaCl 0.9% 100 mL MB+/ADD-[place] 2 g INTRAVENOUS q 6 H diphenhydrAMINE [...] discussed with staff. SIGNATURE: [place] [id number] DATE of SERVICE: August 28, 2017 TIME of SERVICE: 1:56 PM [facility] ST[facility] PH[facility]IC[facility] NOTE OF PERSONAL INVOLVEMENT IN CARE I have reviewed the documentation obtained and documented by the team healthcare provider (fellow, resident, nurse practitioner or physician cement tester assistant) and I personally participated in the fernandes components. I have discussed the case and management of the patient's care and the note has been revised / addended to reflect my direct input. Gael Simmons MD [facility] Medicine Staff PAGER: [phone] DATE of Service: 08/28/2017 TIME of Service: 3:05 PM Previous Version Lashon Howell RN, RN 08/29/2017 2:22 AM Signed Nursing Progress Note Patient Name: Paloma Cannon Patient Location: [place] [id number] Daily Note: 0217 Lab called urgent value, +blood cultures on 08/26 from central line showing gram + cocci and clusters. Vipul bigg paged. This note was completed by: JEFF Gomez, RN, RN 08/29/2017 6:52 AM Signed Nursing Progress Note Patient Name: Paloma Cannno Patient Location: G081 023/G081-23 Daily Note: [address] [place] [address] bigg paged to notify that Blood Cx drawn [...] Gael Simmons MD 08/29/2017 12:47 PM [facility] Marie Progress Note PATIENT NAME: Paloma Cannon Brief Plan for Today - Appreciate ID recommendations; Switch ampicillin to daptomycin as 3 culltures positive for MRSE - Monitor blood count - Hold off CT Abd and line removal as BCx from 2/19 NG x 24hrs - F/u ECHO, fungal battery Interval History No acute events overnight, afebrile 24 hours, HDS Diarrhea is improving, 2 Bm yesterday, decreased cramping Subjectively feels better today No need for line removal as BCx from 2/19 NG x 1d Switched to daptomycin to [...] staff, Dr Simmons SIGNATURE: [place] [id number] DATE of SERVICE: August 29, 2017 TIME of SERVICE: 10:48 AM [facility] PH[facility] NOTE OF PERSONAL INVOLVEMENT IN CARE I have reviewed the documentation obtained and documented by the team healthcare provider (fellow, resident, nurse practitioner or physician cement tester assistant) and I personally participated in the fernandes components. I have discussed the case and management of the patient's care and the note has been revised / addended to reflect my direct input. Cough with bloody tinged sputum today, concerning for DAH. CXR and monitor closely. MALICK from [facility], agree with ID will need to be removed. Appreciate ID support Gael Simmons MD FACP [facility] Medicine Staff PAGER: [phone] DATE of Service: 08/29/2017 TIME of Service: [...] units SIGNATURE: Elsa Germain MS RDN-AP LD [facility] PATIENT NAME: Paloma Cannon DATE: August 30, 2017 TIME: 10:34 AM PAGER: [phone] Gael Simmons MD 08/30/2017 2:21 PM [facility] Progress Note PATIENT NAME: Paloma Cannon Brief [...] positive for MRSE (08/11 x2 and 07/11 x2) Needs coverage for MRSE [...] staff, Dr Simmons SIGNATURE: [place] [id number] DATE of SERVICE: August 30, 2017 TIME of SERVICE: 12:16 PM [facility] PH[facility]IC[facility] NOTE OF PERSONAL INVOLVEMENT IN CARE I have reviewed the documentation obtained and documented by the team healthcare provider (fellow, resident, nurse practitioner or physician cement tester assistant) and I personally participated in the fernandes components. I have discussed the case and management of the patient's care and the note has been revised / addended to reflect my direct input. Samantha now out. Diarrhea resolving Need c/s from Basil Appreciate ID help Hemoptysis has resolved as well Gael Simmons MD FACP [facility] Medicine Staff PAGER: [phone] DATE of Service: 08/30/2017 TIME of Service: 2:20 PM Previous Version Alondra Campa, PT 08/30/2017 12:26 PM Signed Physical Therapy Evaluation SERVICE DATE: 08/30/2017 SERVICE TIME: 1151 to 1215 ROOM: [place] [address] Recommended Discharge Disposition: Home Recommended Discharge Equipment: [...] No Skilled Need Interventions Provided: Evaluation;Gait Training (90550) $ Evaluation-Low (47299) Billed Units: 1 unit Gait Training (55717) Treatment Minutes: 8 1 unit Skilled Intervention(s): [...] Lives With: Significant Other Assistance Available: PRN;multimedia author Entry To Home: No Stairs Number Of [...] details for this therapy evaluation/treatment. SIGNATURE: Alondra Campa, PT PATIENT NAME: Paloma Cannon DATE: August 30, 2017 TIME: 12:22 PM PAGER/CONTACT #: [phone] Dominique Wright MD 08/30/2017 12:37 PM Signed [...] August 30, 2017 TIME: 1:17 PM PAGER: [phone] DAYSI GRULLON PHARMACIST 08/30/2017 1:48 PM Signed PHARMACY WARFARIN EDUCATION Patient Name: Paloma Cannon Account #: Data Unavailable Admission Date: 08/25/2017 5:15 PM Date of Contact: August 30, 2017 Time of Contact: 1:46 PM Patient new to warfarin? No: Previous (home) dosage: warfarin 7.5 mg Sat and Sun; 5 mg Mon,, Wed, Th, Fri Outpatient follow-up plan: Follow-up with Physician: name: Dr. Guillaume Fuller' office (F physician) with his RETAIL DISTRICT MANAGER Magdalena Indication for warfarin: deep vein thrombosis (DVT) Target INR range: 2.0 - 3.0 (Target 2.5) Patient received full warfarin education (Please see previously documented note on 08/27/17). DAYSI GRULLON, PHARMACIST [id number] Machelle Joshi PA-C 08/30/2017 1:54 PM Signed BRIEF OP NOTE LOG ID: [id number] Surgery/Procedure Date: 08/30/2017 Incision/Procedure Start Time: 1325 Incision Close/Procedure End Time: 1335 Surgeon(s)/Proceduralist(s) and Farm Management Agent(s): Machelle Joshi PA-C Procedure(s): Removal of samantha [...] 30, 2017 TIME: 1:48 PM PAGER/CONTACT #: [phone] Lourdes Stallworth, RN, RN 08/30/2017 6:24 PM Addendum Nursing Progress Note Patient Name: Paloma Cannon Patient Location: [place] [id number]- Daily Note: A blood culture ordered for [...] (FLONASE) 50 mcg/actuation nasal spray Use 1 [place] in each nostril once daily. warfarin (COUMADIN) [...] twice daily as needed. Miscellaneous Medical Supply mis 1 package 30 - [...] 31, 2017 TIME: 12:01 PM PAGER/CONTACT #: [phone] . Staff addendum: I interviewed and examined Paloma Aiken Davis, and reviewed and confirmed the findings of the RETAIL DISTRICT MANAGER with additional comments below. The assessment and plan was formulated in discussion with the patient and RETAIL DISTRICT MANAGER, and is also outlined below. Pleasant 27yo F well known to our service due to hx of APS with hx of prior VTE, on senior care anticoagulation with warfarin, and additional complications related [...] Version Gael Simmons MD 08/31/2017 1:05 PM [facility] [place] Progress Note PATIENT [...] cultures positive for MRSE (08/11 x2/16 and 1/2 x2/17) Needs coverage for [...] - Bival vs Fondaparinux - Consult to [facility] medicine ? Chronic Problems: 1. Anti-phospholipid Syndrome 2. Hypertension 3. HFpEF - f/u ECHO 4. Heparin-induced Thrombocytopenia 5. 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 GERD ? Other: Diet: Regular GI AND DVT Prophylaxis: warfarin PT/OT Disposition Recs: N/A Code Status: Full code ? Case to be discussed with staff, Dr Simmons SIGNATURE: [place] [id number] DATE of SERVICE: August 31, 2017 TIME of SERVICE: 12:46 PM [facility] PH[facility]IC[facility] NOTE OF PERSONAL INVOLVEMENT IN CARE I have reviewed the documentation obtained and documented by the team healthcare provider (fellow, resident, nurse practitioner or physician cement tester assistant) and I personally participated in the [...] in the past Gael Simmons MD FACP [facility] Medicine Staff PAGER: [phone] DATE of Service: 08/31/2017 TIME of Service: [...] Cannon Patient Location: G081 023/G081-23 Daily Note: 1230 report given to IR [...] Principles PATIENT NAME: Paloma Cannon PATIENT LOCATION: [place] [address] READINESS TO LEARN COGNITIVE ABILITY: Alert and [...] August 31, 2017 TIME: 6:38 PM PAGER: [phone] Nicholas Gee III, MD 08/31/2017 7:44 PM [...] under separate note. ATTENDING RADIOLOGIST: Interventional: Dr. Nichloas Gee PRE-PROCEDURAL DIAGNOSIS: Catheter infection PROCEDURE: Other (specify) - Removal of an indwelling tunnelled central venous catheter - left MEDICAL HISTORY/PHYSICAL EXAM: Radiology personnel have verified that HANDP exists in patient record. Confirm Medication reconcilation, Allergies, Premedication, Labs, Baseline vital signs or Baseline neurological status unchanged. STATUS: Not applicable SUMMARY: Following full and informed consent the patient was brought to room 25, IR. [place] protocol performed. Subsequently, Removal of an indwelling [...] 31, 2017 TIME: 7:42 PM PAGER/CONTACT #: [phone] Dary Jimenes RN, RN 09/01/2017 9:18 AM [...] DC. TCC/SW to follow For W/E CM p#[phone] SIGNATURE: Dary Jimenes RN PATIENT NAME: Paloma Quisper DATE: September 01, 2017 TIME: 9:10 AM PAGER/CONTACT #: [phone] Gael Simmons MD 09/01/2017 11:59 AM [facility] Marie Progress Note PATIENT NAME: Paloma [...] staff, Dr Simmons SIGNATURE: [place] [id number] DATE of SERVICE: September 01, 2017 TIME of SERVICE: 11:19 AM [facility] STAFF PHYSICIAN NOTE OF PERSONAL INVOLVEMENT IN CARE I have reviewed the documentation obtained and documented by the team healthcare provider (fellow, resident, nurse practitioner or physician cement tester assistant) and I personally participated in the fernandes components. I have discussed the case and management of the patient's care and the note has been revised / addended to reflect my direct input. Jesus Alberto catheter out and she feels better Counts continue to fall Cont current abx ? New TAC early next week Gael Simmons MD [facility] Medicine Staff PAGER: [phone] DATE of Service: 09/01/2017 TIME of Service: [...] Version Gael Simmons MD 09/02/2017 10:45 AM [facility] Progress Note PATIENT NAME: Paloma Cannon Brief [...] positive for MRSE (2/2 x2/ and 1/2 x2/17) Needs coverage for MRSE [...] staff, Dr Simmons SIGNATURE: [place] [id number] DATE of SERVICE: September 02, 2017 TIME of SERVICE: 10:20 AM [facility] STAFF PHYSICIAN NOTE OF PERSONAL INVOLVEMENT IN CARE I have reviewed the documentation obtained and documented by the team healthcare provider (fellow, resident, nurse practitioner or physician cement tester assistant) and I personally participated in the fernandes components. I have discussed the case and management of the patient's care and the note has been revised / addended to reflect my direct input. Clinically improving. No loose stools past 24 hours, joint pain controlled. Plan remains the same. Gael Simmons MD [facility] Medicine Staff PAGER: [phone] DATE of Service: 09/02/2017 TIME of Service: 10:45 AM Previous Version JERMAINE Arreguin/Allie 09/02/2017 10:41 AM Signed Occupational Therapy Evaluation SERVICE DATE: 09/02/2017 SERVICE TIME: 1000 to 1030 ROOM: [place] [address] Recommended Discharge Disposition: Home Recommended Discharge Disposition [...] No Skilled Need Interventions Provided: Evaluation;Therapeutic Exercise (81196) $ Evaluation-Low (00570) Billed Units: 1 unit Therapeutic Exercise (94933) Treatment Minutes: 15 1 unit Skilled Intervention(s): [...] Lives With: Significant Other Assistance Available: PRN;multimedia author Entry To Home: No Stairs Number Of [...] complete details for this therapy evaluation/treatment. SIGNATURE: BARRIE Arreguin PATIENT NAME: Paloma Cannon DATE: September 02, 2017 TIME: 10:38 AM PAGER: [phone] Shelia Oviedo RN, RN 09/02/2017 3:42 PM Signed Nursing Progress Note Patient Name: Paloma Cannon Patient Location: G081 023/G081-23 Daily Note: 1540- Patient resting in bed, call light in reach. This note was completed by: JEFF Flowers MD 09/03/2017 1:35 PM [facility] Progress Note PATIENT NAME: Paloma Cannon Interval [...] Ryan MD Internal Medicine PGY-3 Pager: [phone] 11:45 AM 09/03/2017 [facility] STAFF PHYSICIAN NOTE OF PERSONAL INVOLVEMENT IN CARE I have reviewed the documentation obtained and documented by the team healthcare provider (fellow, resident, nurse practitioner or physician cement tester assistant) and I personally participated in the fernandes components. I have discussed the case and management of the patient's care and the note has been revised / addended to reflect my direct input. Continues to do well, 2.23 c/s NGTD x2 plt ct has stabilized Plan is for new exchange line next week Gael Simmons MD [facility] Medicine Staff PAGER: [phone] DATE of Service: 09/03/2017 TIME of Service: [...] 04, 2017 TIME: 11:21 AM PAGER/CONTACT #: [phone] Paulette Naranjo CNP 09/04/2017 11:31 AM Addendum [...] 04, 2017 TIME: 11:23 AM PAGER/CONTACT #: [phone] . Previous Version Dominique Wright MD 09/04/2017 [...] a.m. Ignacio Novak MD 09/04/2017 11:58 AM [facility] Progress Note PATIENT NAME: Paloma Cannon Brief [...] ? Emelia Liu MD PGY-1 Internal Medicine [id number] September 04, 2017 11:34 AM [facility] STAFF PHYSICIAN NOTE OF PERSONAL INVOLVEMENT IN [...] line placement. SIGNATURE: Ignacio Novak MD PAGER: [phone] DATE of SERVICE: September 04, 2017 TIME of SERVICE: 11:55 AM Previous Version Veronica Ryan MD 09/04/2017 12:08 PM Signed PLAN OF CARE -Plan to place both line - Double Lumen Tunneled CVC and Dialysis/[facility] Double Lumen tomorrow 09/05/2017 (Discussed w/ IR and ID) -Plan to hold AM dose of fondaparinux -Plasmapharesis planned for Monday. Veronica Ryan MD Internal Medicine PGY-3 Previous Version MELVINA Ellison 09/04/2017 1:03 PM Signed NUTRITION THERAPY FOLLOW-UP [...] unit SIGNATURE: MELVINA Ellison PATIENT NAME: Paloma Aiken Davis DATE: September 04, 2017 TIME: 1:00 PM PAGER: [phone] Denise Huffman RN, RN 09/04/2017 6:31 PM Signed Nursing Progress Note Topic of Note: Daily Note Paloma Cannon [id number] Patient to go to tomorrow for a samantha and tunneled dialysis catheter placement. No other issues noted at this time, will monitor. This note was completed by: Denise Huffman RN Progress Notes ([facility]): Magdalena Lewis CNP, CNP 08/21/2017 4:28 PM Signed INR today prior to PLEX was 1.5 Message left for patient to take 7.5mg x 2 days, followed by 5mg x 2 days then check INR on 08/25. Attempted to call Morteza (patient's ), phone was no longer in service Magdalena Lewis CNP PROGRESS Observed: 08/21/2017 Status: COMPLETED Source: [place] 4:09 PM [facility] REPOSITORY O ID: [id number] Author: Lisseth Claudio MD Service: (none) Author [...] port Return: blue port Medications given: See [facility] audit report. Volume treated: 6563 ml whole blood Volume removed: 6563 ml plasma Volume replaced: 1000 ml NSS and 1545 ml FFP [id number] ACD used 676 ml. 10% calcium gluconate [...] Verdin RN Signed by: Carmita Verdin RN [facility] STAFF PHYSICIAN NOTE OF PERSONAL INVOLVEMENT IN [...] MD August 21, 2017 4:46 PM Pager: [phone] PROGRESS Observed: 08/21/2017 Status: COMPLETED Source: [place] 3:15 PM [facility] REPOSITORY HNO ID: [id number] Author: Elsa Melol (Coord) Service: (none) Author Type: Painting Department Supervisor Type: Progress Notes Filed: 08/21/2017 3:15 PM Note Text: Patient had appointments today at [facility]. I provided a parking pass. Adraina Mello Patient Account [employer] [facility] [phone] / [phone] FACTOR VIII:C ASSAY Collected: 08/21/2017 Status: F Source: [place] 1:17 PM [facility] REPOSITORY TYPE CODE TESTS RESULT OUT OF [...] months. Performed By: #### FVIIIC, LUPUSP #### [facility] [address] [place], [place] [address] LUPUS ANTICOAG PANEL Collected: 08/21/2017 Status: F Source: [place] 1:17 PM [facility] REPOSITORY TYPE CODE TESTS RESULT OUT OF RANGE REFERENCE UNITS LAB PSEC 9.7-13.0 sec High PT Sec 15.3 LAB INR 0.9-1.3 High PT INR 1.5 Result Comment: Vitamin K Antagonist (VKA) Therapeutic Range: INR 2 to 3 (Target INR of 2.5) Note: For patients treated with VKA drugs, such as warfarin, the [place]icians 2012 Guideline recommends [...] Chest 2012, 141:7S-47S Diogenes RA, et al. [facility] 2017, 70: 252-289 LAB APTT [...] laboratory APTT reagent in use throughout the [facility]. LAB PLTNEU Negative Abnormal Alert PNP Positive [...] thrombin inhibitors, or heparin). Thromb. Haemost. 74:1185 (1994). ANTIPHOSPHOLIPID ANTIBODY STUDIES: The IgG anticardiolipin antibody [...] The following results were obtained with the [employer] QUANTA Lite JOESPH IgG III JESSICA. Cardiolipin [...] titer. Performed By: #### FVIIIC, LUPUSP #### [facility] [address] [place], [place] [address] CBC AND DIFFERENTIAL Collected: 08/21/2017 Status: F Source: [place] 1:16 PM [facility] REPOSITORY TYPE CODE TESTS RESULT [...] Abs 0.20 Low Lymph LAB AMONO % Hughes% 8.7 LAB AAMONO <0.87 k/uL Abs 0.28 Hughes LAB AEOS % 3.1 Eosin% LAB AAEOS <0.46 k/uL Abs 0.10 Eosin LAB ABASO % Baso% 1.2 LAB AABASO <0.11 k/uL Abs 0.04 Baso LAB AUNRBC 0 /100 WBC NRBCs 0.0 LAB ABNRBC <0.01 k/uL <0.01 Absolute nRBC LAB DTYP DTYPE Auto Diff Performed By: #### CBCDIF, CMP #### [facility] [address] [place] [id number] COMP METABOLIC PANEL Collected: 08/21/2017 Status: F Source: [place] 1:16 PM [facility] REPOSITORY TYPE CODE TESTS RESULT OUT OF REFERENCE UNITS RANGE LAB TP 6.3-8.0 g/dL Low Protein, Total 5.9 LAB ALB 3.9-4.9 g/dL Low Albumin 3.6 LAB CA 8.5-10.2 mg/dL Calcium, Total 8.6 LAB TBIL 0.2-1.3 mg/dL Bilirubin, Total 0.7 LAB ALKP 32-117 U/L Alkaline Phosphatase 61 LAB AST 13-35 U/L AST 15 LAB GLU 74-99 mg/dL Glucose 99 Result Comment: The [place] Diabetes Association (ADA) provides guidance for cutoff [...] Standards of Medical Care in Diabetes 2016, [place] Diabetes Association. Diabetes Care. 2016.39(Suppl 1). LAB [...] #### CBCDIF, CMP #### [facility] [address] [place], [place] [address] CNOVSP Observed: 08/21/2017 Status: COMPLETED Source: [place] 12:30 PM [facility] REPOSITORY Visit (SP) Office ([facility]) PALOMA MARTINEZ ([id number]) 1990 F PTR Date Time Provider Department 08/21/17 12:30 PM [facility]IN [facility] During your visit today, we recorded [...] port Return: blue port Medications given: See [facility] audit report. Volume treated: 6563 ml whole blood Volume removed: 6563 ml plasma Volume replaced: 1000 ml NSS and 1545 ml FFP [id number] ACD used 676 ml. 10% calcium gluconate [...] Verdin RN Signed by: Carmita Verdin RN [facility] STAFF PHYSICIAN NOTE OF PERSONAL INVOLVEMENT IN [...] MD August 21, 2017 4:46 PM Pager: [phone] Referring Provider: LISSETH CLAUDIO [[id number]] Allergies As of Date: 08/21/2017 Noted Allergy [...] enzymes Date Reviewed: 08/21/2017 Reviewed by: Carmita (Jeff) JEFF Verdin - Fully Assessed Reason for Visit: Plasmapheresis [1323] Primary Visit Diagnosis:APS (antiphospholipid syndrome) ([facility]) [D68.61] Order(s):LUPUS ANTICOAG PL [SQLUPUSP] Order #: [id number]. #:[id number] CBC + DIFF [SQCBCDIF] Order #: [id number]. #:[id number] COMP METABOLIC PANEL [SQCMP] Order #: [id number]. #:[id number] [facility] NURSING COMMUNICATION [[id number]] Order #: [id number]: 1 TREATMENT PARAMETERS [[id number]] Order #: [id number]: 1 [facility] NURSING COMMUNICATION [[id number]] Order #: [id number]: 1 STANDING [] diphenhydrAMINE 50 mg injection [...] daily. FLUTICASONE 50 MCG/ACTUATION * Use 1 [place] in each nostril o* WARFARIN 5 MG [...] 08/21/17 HOSP Observed: 08/21/2017 Status: COMPLETED Source: [place] 12:00 AM [facility] REPOSITORY Patient Update ([facility]) PALOMA MARTINEZ ([id number]) 1990 F [facility] Date Time Provider Department 08/21/17 ELSA MELLO (COORD) [facility] During your visit today, we recorded the following information about you: Elsa Mello, Coord 08/21/2017 3:15 PM Signed Patient had appointments today at [facility]. I provided a parking pass. Adriana Mello Patient Account [employer] [facility] [phone] / [phone] Allergies As of Date: 08/21/2017 [...] daily. FLUTICASONE 50 MCG/ACTUATION * Use 1 [place] in each nostril o* WARFARIN 5 MG [...] 08/16/2017 Status: F Source: [place] 8:20 AM [facility] REPOSITORY Order Comment: MEDOUT/PORT DRAW TYPE CODE TESTS RESULT OUT OF REFERENCE UNITS RANGE LAB L300.4150 11.7-14.9 SECONDS High PROTIME 37.8 LAB L300.4200 High alert INR 4.0 Result Comment: CRITICAL VALUE VERIFIED. CALLED TO NADINE PATEL 08/16/17 0915 Zhou Nava. RESULTS READ BACK BY SAME. Performed By: #### L300.3900 #### [facility] [address] [facility] [address]. [place], [place], [address] PROTHROMBIN TIME W/INR Collected: 08/11/2017 Status: F Source: [place] 8:55 AM [facility] REPOSITORY Order Comment: Order Date: 08/11/17 Comments: FAX RESULTS TO Giacomo LEWIS [phone] TYPE CODE TESTS RESULT OUT OF RANGE REFERENCE UNITS LAB L300.4150 11.7-14.9 SECONDS High PROTIME 29.9 LAB L300.4200 Normal INR 3.0 Performed By: #### L300.3900 #### [facility] [address] [place], [place], [address] PROGRESS Observed: 08/10/2017 Status: COMPLETED Source: [place] 2:01 PM [facility] [place] REPOSITORY O ID: [id number] Author: Kem Andujar Service: (none) Author Type: [...] (FLONASE) 50 mcg/actuation nasal spray Use 1 [place] in each nostril once daily. warfarin (COUMADIN) [...] your blood pressure is less than 120/80. [facility] package 30 - 40 mmHg pressure [...] PM PROGRESS Observed: 08/07/2017 Status: COMPLETED Source: [place] 3:40 PM [facility] REPOSITORY HNO ID: [id number] Author: Elsa Mello (Coord) Service: (none) Author Type: Painting Department Supervisor Type: Progress Notes Filed: 08/10/2017 3:40 PM Note Text: Patient had appointments today at [facility]. I provided a parking pass. Adriana Mello Patient Account [employer] [facility] [phone] / [phone] PROGRESS Observed: 08/07/2017 Status: COMPLETED Source: [place] 12:58 PM [facility] REPOSITORY HNO ID: [id number] Author: Lisseth Claudio MD Service: (none) Author Type: Physician Type: Progress Notes Filed: 08/07/2017 3:50 PM Note Text: APHERESIS THERAPEUTIC PLASMAPHERESIS PATIENT NAME: Paloma Cannon : 1990 AGE:[age] year old Gender: female Treatment #: [id number] Diagnosis: Antiphospholipid antibody syndrome Primary Service/Physician: Hematology: Dr. Bessy Andujar Treatment performed at [facility] ([place]). Patient arrived by chair and with [...] indwelling and blue port Medications given: See [facility] audit report. Volume treated: 7995 ml whole [...] 2 weeks Signed by: Angella Ortiz RN [facility] STAFF PHYSICIAN NOTE OF PERSONAL INVOLVEMENT IN [...] MD August 07, 2017 3:49 PM Pager: [phone] CBC AND DIFFERENTIAL Collected: 08/07/2017 Status: F Source: [place] 12:57 PM [facility] REPOSITORY TYPE CODE TESTS RESULT OUT OF [...] Low Abs Lymph 0.14 LAB AMONO % Hughes% 6.2 LAB AAMONO <0.87 k/uL Abs Hughes 0.35 LAB AEOS % Eosin% 1.2 LAB AAEOS <0.46 k/uL Abs Eosin 0.07 LAB ABASO % Baso% 0.5 LAB AABASO <0.11 k/uL Abs Baso 0.03 LAB AUNRBC 0 /100 WBC NRBCs 0.0 LAB ABNRBC <0.01 k/uL Absolute nRBC <0.01 LAB DTYP DTYPE Auto Diff Performed By: #### CBCDIF, CMP, PT #### [facility] [address] [place] [address] COMP METABOLIC PANEL Collected: 08/07/2017 Status: F Source: [place] 12:57 PM [facility] REPOSITORY TYPE CODE TESTS RESULT OUT OF REFERENCE UNITS RANGE LAB TP 6.3-8.0 g/dL Protein, Total 6.4 LAB ALB 3.9-4.9 g/dL Albumin 4.0 LAB CA 8.5-10.2 mg/dL Calcium, Total 9.1 LAB TBIL 0.2-1.3 mg/dL Bilirubin, Total 0.5 LAB ALKP 32-117 U/L Alkaline Phosphatase 63 LAB AST 13-35 U/L AST 17 LAB GLU 74-99 mg/dL Glucose 96 Result Comment: The [place] Diabetes Association (ADA) provides guidance for cutoff [...] Standards of Medical Care in Diabetes 2016, [place] Diabetes Association. Diabetes Care. 2016.39(Suppl 1). LAB [...] CBCDIF, CMP, PT #### [facility] [address] [place] [id number] PROTIME Collected: 08/07/2017 Status: F Source: [place] 12:57 PM [facility] REPOSITORY TYPE CODE TESTS RESULT OUT OF RANGE REFERENCE UNITS LAB PSEC 9.7-13.0 sec High PT Sec 29.7 LAB INR 0.9-1.3 High PT INR 3.1 Result Comment: Vitamin K Antagonist (VKA) Therapeutic Range: INR 2 to 3 (Target INR of 2.5) Note: For patients treated with VKA drugs, such as warfarin, the [place]icians 2012 Guideline recommends [...] Chest 2012, 141:7S-47S Diogenes RA, et al. [facility] 2017, 70: 252-289 Performed By: #### CBCDIF, CMP, PT #### [facility] [address] [place], [place] [address] CNOVSP Observed: 08/07/2017 Status: COMPLETED Source: [place] 12:30 PM [facility] REPOSITORY [facility] ([id number]) 1990 F PTR Date Time Provider Department 08/07/17 12:30 PM [facility]IN [facility] During your visit today, we recorded [...] indwelling and blue port Medications given: See [facility] audit report. Volume treated: 7995 ml whole [...] 2 weeks Signed by: Angella Ortiz RN [facility] STAFF PHYSICIAN NOTE OF PERSONAL INVOLVEMENT IN [...] MD August 07, 2017 3:49 PM Pager: [phone] Referring Provider: LISSETH CLAUDIO [[id number]] Allergies As of Date: 08/07/2017 Noted Allergy [...] Plasmapheresis [1323] Primary Visit Diagnosis:APS (antiphospholipid syndrome) ([facility]) [D68.61] Order(s):PROTHROMBIN TIME/PT [SQPT] Order #: [id number]. #:[id number] CBC + DIFF [SQCBCDIF] Order #: [id number]. #:[id number] COMP METABOLIC PANEL [SQCMP] Order #: [id number]. #:[id number] [facility] NURSING COMMUNICATION [[id number]] Order #: [id number]: 1 TREATMENT PARAMETERS [[id number]] Order #: [id number]: 1 [facility] NURSING COMMUNICATION [[id number]] Order #: [id number]: 1 STANDING [] diphenhydrAMINE 50 mg injection [...] daily. FLUTICASONE 50 MCG/ACTUATION * Use 1 [place] in each nostril o* WARFARIN 5 MG [...] Status:Closed by LISSETH CLAUDIO MD on 08/07/17 CNOVSP Observed: 08/07/2017 Status: COMPLETED Source: [place] 12:30 PM [facility] REPOSITORY Visit (SP) Office ([facility]) RITIKAMELISSA PALOMA CANNON ([id number]) 1990 F [facility] Date Time Provider Department 08/07/17 12:30 PM [...] (FLONASE) 50 mcg/actuation nasal spray Use 1 [place] in each nostril once daily. warfarin (COUMADIN) [...] 2017 2:05 PM Referring Provider: KEM ANDUJAR [[id number]] Allergies As of Date: 08/07/2017 Noted Allergy [...] Angella SanchezRn) JEFF Ortiz - Fully Assessed Primary Visit Diagnosis:APS (antiphospholipid syndrome) ([facility]) [D68.61] Other Visit Diagnosis:Hypercoagulable state ([facility]) [D68.59] Prescriptions as of 08/07/2017 Sig: CYCLOPHOSPHAMIDE [...] daily. FLUTICASONE 50 MCG/ACTUATION * Use 1 [place] in each nostril o* WARFARIN 5 MG [...] 08/10/17 HOSP Observed: 08/07/2017 Status: COMPLETED Source: [place] 12:00 AM [facility] REPOSITORY Patient Update ([facility]) PALOMA MARTINEZ ([id number]) 1990 F PTR Date Time Provider Department 08/07/17 ELSA MELLO (COORD) [facility] During your visit today, we recorded the following information about you: Capri Sandhu 08/10/2017 3:40 PM Signed Patient had appointments today at [facility]. I provided a parking pass. Adriana Mello Patient Account [employer] [facility] [phone] / [phone] Allergies As of Date: 08/07/2017 [...] Assessed Reason for Visit: Cancer Patient Support [6107] Prescriptions as of 08/07/2017 Sig: CYCLOPHOSPHAMIDE 50 [...] daily. FLUTICASONE 50 MCG/ACTUATION * Use 1 [place] in each nostril o* WARFARIN 5 MG [...] 08/04/2017 Status: F Source: [place] 8:05 AM [facility] REPOSITORY Order Comment: MEDOUT/IVT PORT TYPE CODE TESTS RESULT OUT OF RANGE REFERENCE UNITS LAB L300.4150 11.7-14.9 SECONDS High PROTIME 32.3 LAB L300.4200 Normal INR 3.3 Performed By: #### L300.3900 #### [facility] [address]. [place], [place], [address] PROTHROMBIN TIME W/INR Collected: 07/28/2017 Status: F Source: [place] 8:10 AM [facility] REPOSITORY Order Comment: Order Date: 07/28/17 Comments: FAX RESULTS TO ELLIOTT CORDON AT [phone] TYPE CODE TESTS RESULT OUT OF RANGE REFERENCE UNITS LAB L300.4150 11.7-14.9 SECONDS High PROTIME 22.1 LAB L300.4200 Normal INR 2.0 Performed By: #### L300.3900 #### [facility] [address] [place], [place], [address] PROGRESS Observed: 07/24/2017 Status: COMPLETED Source: [place] 2:14 PM [facility] REPOSITORY HNO ID: [id number] Author: Elsa Mello (Coord) Service: (none) Author Type: Painting Department Supervisor Type: Progress Notes Filed: 08/04/2017 2:15 PM Note Text: Patient had appointments today at [facility]. I provided a parking pass. Adriana Mello Patient Account [employer] [facility] [phone] / [phone] CBC AND DIFFERENTIAL Collected: 07/24/2017 Status: F Source: [place] 1:30 PM [facility] REPOSITORY TYPE CODE TESTS RESULT [...] Abs 0.34 Low Lymph LAB AMONO % Hughes% 4.6 LAB AAMONO <0.87 k/uL Abs 0.31 Hughes LAB AEOS % 5.1 Eosin% LAB AAEOS <0.46 k/uL Abs 0.34 Eosin LAB ABASO % Baso% 0.3 LAB AABASO <0.11 k/uL Abs <0.03 Baso LAB AUNRBC 0 /100 WBC NRBCs 0.0 LAB ABNRBC <0.01 k/uL <0.01 Absolute nRBC LAB DTYP DTYPE Auto Diff Performed By: #### CBCDIF, CMP #### [facility] [address] [place], [place] [address] COMP METABOLIC PANEL Collected: 07/24/2017 Status: F Source: [place] 1:30 PM [facility] REPOSITORY TYPE CODE TESTS RESULT OUT OF REFERENCE UNITS RANGE LAB TP 6.3-8.0 g/dL Low Protein, Total 5.4 LAB ALB 3.9-4.9 g/dL Low Albumin 3.6 LAB CA 8.5-10.2 mg/dL Calcium, Total 9.0 LAB TBIL 0.2-1.3 mg/dL Bilirubin, Total 0.9 LAB ALKP 32-117 U/L Alkaline Phosphatase 53 LAB AST 13-35 U/L AST 16 LAB GLU 74-99 mg/dL Glucose High 114 Result Comment: The [place] Diabetes Association (ADA) provides guidance for cutoff [...] Standards of Medical Care in Diabetes 2016, [place] Diabetes Association. Diabetes Care. 2016.39(Suppl 1). LAB [...] #### CBCDIF, CMP #### [facility] [address] [place] [id number] LUPUS ANTICOAG PANEL Collected: 07/24/2017 Status: F Source: [place] 1:30 PM [facility] REPOSITORY TYPE CODE TESTS RESULT OUT OF RANGE REFERENCE UNITS LAB PSEC 9.7-13.0 sec High PT Sec 28.7 LAB INR 0.9-1.3 High PT INR 3.0 Result Comment: Vitamin K Antagonist (VKA) Therapeutic Range: INR 2 to 3 (Target INR of 2.5) Note: For patients treated with VKA drugs, such as warfarin, the [place] [employer]icians 2012 Guideline recommends [...] 2.5 to 3.5 (target INR of 3). Michale PLASENCIA, et al. Chest 2012, 141:7S-47S Diogenes RA, et al. [facility] 2017, 70: 252-289 LAB APTT [...] laboratory APTT reagent in use throughout the [facility]. LAB PLTNEU Negative Abnormal Alert Positive PNP [...] endpoint titer. Performed By: #### LUPUSP #### [facility] [address] [place], [place] [address] PROGRESS Observed: 07/24/2017 Status: COMPLETED Source: [place] 1:17 PM [facility] REPOSITORY HNO ID: [id number] Author: Lisseth Claudio MD Service: (none) Author [...] line and blue port Medications given: See [facility] audit report. Volume treated: 7267 ml whole [...] oral fluids Signed by: Lou Juarez RN [facility] NOTE OF PERSONAL INVOLVEMENT IN [...] MD July 24, 2017 4:58 PM Pager: [phone] CNOVSP Observed: 07/24/2017 Status: COMPLETED Source: [place] 12:30 PM [facility] REPOSITORY Visit (SP) Office ([facility]) PALOMA MARTINEZ ([id number]) 1990 F PTR Date Time Provider Department 07/24/17 12:30 PM APHERESIS DAREK MAIN [facility] During your visit today, we recorded the following information about you: Temperature Pulse Respiration Blood pressure 98.2 degrees 102/minute 20/minute 147/68 Lisseth Claudio MD, MD 07/24/2017 4:59 PM Signed APHERESIS THERAPEUTIC PLASMAPHERESIS [...] line and blue port Medications given: See [facility] audit report. Volume treated: 7267 ml whole [...] oral fluids Signed by: Lou Juarez RN [facility] [place] NOTE OF PERSONAL INVOLVEMENT IN [...] MD July 24, 2017 4:58 PM Pager: [phone] Referring Provider: LISSETH CLAUDIO [[id number]] Allergies As of Date: 07/24/2017 Noted Allergy [...] enzymes Date Reviewed: 07/24/2017 Reviewed by: Lou Sauer) JEFF Juarez - Fully Assessed Reason for Visit: Plasmapheresis [1323] Primary Visit Diagnosis:APS (antiphospholipid syndrome) (HCC) [D68.61] Order(s):LUPUS ANTICOAG PL [SQLUPUSP] Order #: [id number]. #:[id number] CBC + DIFF [SQCBCDIF] Order #: [id number]. #:[id number] COMP METABOLIC PANEL [SQCMP] Order #: [id number]. #:[id number] [facility] NURSING COMMUNICATION [[id number]] Order #: [id number]: 1 TREATMENT PARAMETERS [[id number]] Order #: [id number]: 1 [facility] [[id number]] Order #: [id number]: 1 STANDING [] diphenhydrAMINE 50 mg injection [...] daily. FLUTICASONE 50 MCG/ACTUATION * Use 1 [place] in each nostril o* WARFARIN 5 MG [...] 07/24/17 HOSP Observed: 07/24/2017 Status: COMPLETED Source: [place] 12:00 AM [facility] REPOSITORY Patient Update ([facility]) PALOMA MARTINEZ ([id number]) 1990 F PTR Date Time Provider Department 07/24/17 ELSA MELLO (COORD) [facility] During your visit today, we recorded the following information about you: Capri Sandhu 08/04/2017 2:15 PM Signed Patient had appointments today at [facility]. I provided a parking pass. Adriana Mello Patient Account [employer] [facility] [phone] / [phone] Allergies As of Date: 07/24/2017 [...] Cancer Patient Support [4087] Prescriptions as of 07/24/2017 Sig: CYCLOPHOSPHAMIDE 50 [...] daily. FLUTICASONE 50 MCG/ACTUATION * Use 1 [place] in each nostril o* WARFARIN 5 MG [...] TIME W/INR Collected: 07/21/2017 Status: F Source: [place] 8:00 AM [facility] REPOSITORY Order Comment: MEDOUT/PORT TYPE CODE TESTS RESULT OUT OF RANGE REFERENCE UNITS LAB L300.4150 11.7-14.9 SECONDS High PROTIME 25.6 LAB L300.4200 Normal INR 2.5 Performed By: #### L300.3900 #### [facility] [address] [place], [address] PROTHROMBIN TIME W/INR Collected: 07/14/2017 Status: F Source: [place] 8:15 AM [facility] REPOSITORY Order Comment: MEDOUT/PORT TYPE CODE TESTS RESULT OUT OF RANGE REFERENCE UNITS LAB L300.4150 11.7-14.9 SECONDS High PROTIME 23.1 LAB L300.4200 Normal INR 2.1 Performed By: #### L300.3900 #### [facility] [address] [place], [address] URINALYSIS Collected: 07/11/2017 Status: F Source: [place] 4:10 PM [facility] REPOSITORY TYPE CODE TESTS RESULT OUT OF RANGE REFERENCE UNITS LAB UCOL Yellow Color Yellow LAB [facility] Clear Clarity Clear LAB UGLUC Negative mg/dL Glucose, Urine Negative LAB UBIL Negative Bilirubin, Urine Negative LAB UKET Negative Ketones, Urine Negative LAB USPG 1.005-1.030 Specific [place], Ur 1.026 LAB UHGB Negative Hemoglobin/Blood, Negative [...] By: #### UA #### [facility] [address] [place] [address] PROGRESS Observed: 07/11/2017 Status: COMPLETED Source: [place] 3:37 PM [facility] REPOSITORY HNO ID: [id number] Author: Elsa Mello (Coord) Service: (none) Author Type: Painting Department Supervisor Type: Progress Notes Filed: 07/11/2017 3:37 PM Note Text: Patient had appointments today at [facility]. I provided a parking pass. Adriana Mello Patient Account [employer] [facility] [phone] / [phone] PROGRESS Observed: 07/11/2017 Status: COMPLETED Source: [place] 2:48 PM [facility] REPOSITORY HNO ID: [id number] Author: Willie (Rn) JEFF Avery Service: (none) Author Type: Registered [...] RN PROGRESS Observed: 07/11/2017 Status: COMPLETED Source: [place] 1:05 PM [facility] REPOSITORY HNO ID: [id number] Author: Lisseth Claudio MD Service: (none) Author [...] present and patency confirmed. Medications given: See [facility] audit report. Volume treated: 7076 ml whole [...] oral fluids Signed by: Willie Avery RN [facility] NOTE OF PERSONAL INVOLVEMENT IN [...] MD July 11, 2017 3:22 PM Pager: [phone] COMP METABOLIC PANEL Collected: 07/11/2017 Status: F Source: [place] 12:37 PM [facility] REPOSITORY TYPE [...] mg/dL Glucose High 121 Result Comment: The [place] Diabetes Association (ADA) provides guidance for cutoff [...] Standards of Medical Care in Diabetes 2016, [place]. Diabetes Care. 2016.39(Suppl 1). LAB [...] CMP, CBCDIF, PT #### [facility] [address] [place] [address] CBC AND DIFFERENTIAL Collected: 07/11/2017 Status: F Source: [place] 12:37 PM [facility] REPOSITORY TYPE CODE TESTS RESULT OUT OF [...] Abs Lymph 0.60 Low LAB AMONO % Hughes% 3.0 LAB AAMONO <0.87 k/uL Abs Hughes 0.60 LAB AEOS % Eosin% 0.0 LAB [...] CMP, CBCDIF, PT #### [facility] [address] [place] [address] PROTIME Collected: 07/11/2017 Status: F Source: [place] 12:37 PM [facility] REPOSITORY TYPE CODE TESTS RESULT OUT OF RANGE REFERENCE UNITS LAB PSEC 9.7-13.0 sec High PT Sec 17.6 LAB INR 0.9-1.3 High PT INR 1.8 Result Comment: Vitamin K Antagonist (VKA) Therapeutic Range: INR 2 to 3 (Target INR of 2.5) Note: For patients treated with VKA drugs, such as warfarin, the [place] 2012 Guideline recommends [...] Chest 2012, 141:7S-47S Diogenes RA, et al. [facility] 2017, 70: 252-289 Performed By: #### CMP, CBCDIF, PT #### [facility] [address] [place] [id number] CNOVSP Observed: 07/11/2017 Status: COMPLETED Source: [place] 12:30 PM [facility] REPOSITORY [facility]SP[facility] PALOMA MARTINEZ ([id number]) 1990 F PTR Date Time Provider Department 07/11/17 12:30 PM APHERESIS DAREK MAIN [facility] During your visit today, we recorded [...] present and patency confirmed. Medications given: See [facility] audit report. Volume treated: 7076 ml whole [...] oral fluids Signed by: Willie Avery RN [facility] NOTE OF PERSONAL INVOLVEMENT IN [...] MD July 11, 2017 3:22 PM Pager: [phone] Willie Avery RN, RN 07/14/2017 8:38 AM [...] Willie Avery RN Referring Provider: LISSETH CLAUDIO [[id number]] Allergies As of Date: 07/11/2017 Noted Allergy [...] Plasmapheresis [1323] Primary Visit Diagnosis:APS (antiphospholipid syndrome) ([facility]) [D68.61] Order(s):[facility] NURSING COMMUNICATION [[id number]] Order #: [id number]: 1 TREATMENT PARAMETERS [[id number]] Order #: [id number]: 1 [facility] NURSING COMMUNICATION [[id number]] Order #: [id number]: 1 STANDING [] diphenhydrAMINE 50 mg injection (BENADRYL)Disp: Rfl: [] hydrocortisone sodium succinate (PF) 100 mg injection (Solu-CORTEF)Disp: Rfl: [] calcium gluconate 3 g in NaCl 0.9% 1,000 mLDisp: Rfl: [] albumin (5%) 50 g infusionDisp: Rfl: citrate dextrose solution (ACD-A) infusionDisp: Rfl: 0.9% NaCl 10-20 mLDisp: Rfl: sodium citrate 4% 3-6 mL catheter lockDisp: Rfl: PROTHROMBIN TIME/PT [SQPT] Order #: [id number]. #:[id number] CBC + DIFF [SQCBCDIF] Order #: [id number]. #:[id number] COMP METABOLIC PANEL [SQCMP] Order #: [id number]. #:[id number] [] alteplase (CATHFLO) injection 2 mgDisp: Rfl: [...] daily. FLUTICASONE 50 MCG/ACTUATION * Use 1 [place] in each nostril o* WARFARIN 5 MG [...] 07/14/17 HOSP Observed: 07/11/2017 Status: COMPLETED Source: [place] 12:00 AM [facility] REPOSITORY Patient Update ([facility]) PALOMA MARTINEZ ([id number]) 1990 F PTR Date Time Provider Department 07/11/17 ELSA MELLO (COORD) [facility] During your visit today, we recorded the following information about you: Elsa Mello, Coord 07/11/2017 3:37 PM Signed Patient had appointments today at [facility]. I provided a parking pass. Adriana Mello Patient Account [employer] [facility] [phone] / [phone] Allergies As of Date: 07/11/2017 [...] daily. FLUTICASONE 50 MCG/ACTUATION * Use 1 [place] in each nostril o* WARFARIN 5 MG [...] TIME W/INR Collected: 07/07/2017 Status: F Source: [place] 8:20 AM [facility] REPOSITORY Order Comment: MEDOUT/PORT TYPE CODE TESTS RESULT OUT OF REFERENCE UNITS RANGE LAB L300.4150 11.7-14.9 SECONDS High PROTIME 40.9 LAB L300.4200 High alert INR 4.5 Result Comment: CRITICAL VALUE VERIFIED. FAXED TO [facility]. [phone] 07/07/17 0843 Nathalia Jones. Performed By: #### L300.3900 #### [facility] [place], [address] OBSOLETE Observed: 07/06/2017 Status: COMPLETED Source: [place] 12:00 AM [facility] REPOSITORY Refill ([facility]) PALOMA MARTINEZ ([id number]) 1990 F PTR Date Time Provider Department [...] daily. FLUTICASONE 50 MCG/ACTUATION * Use 1 [place] in each nostril o* WARFARIN 5 MG [...] 06/30/2017 Status: F Source: [place] 8:25 AM [facility] REPOSITORY Order Comment: MEDOUT/PORT TYPE CODE TESTS RESULT OUT OF RANGE REFERENCE UNITS LAB L300.4150 11.7-14.9 SECONDS High PROTIME 20.5 LAB L300.4200 Normal INR 1.8 Performed By: #### L300.3900 #### [facility] [address] [place], [address] PROGRESS Observed: 06/27/2017 Status: COMPLETED Source: [place] 2:36 PM [facility] REPOSITORY HNO ID: [id number] Author: Orin (Rn) JEFF Lares Service: (none) [...] (FLONASE) 50 mcg/actuation nasal spray Use 1 [place] in each nostril once daily. warfarin (COUMADIN) [...] is less than 120/80. Miscellaneous [facility] package 30 - 40 mmHg pressure [...] Andujar MD June 27, 2017 2:42 PM CNOVSP Observed: 06/27/2017 Status: COMPLETED Source: [place] 12:30 PM [facility] REPOSITORY Visit (SP) Office ([facility]) NELIL QUISPEPALOMA Stewart ([id number]) 1990 F [facility] Date Time Provider Department 06/27/17 12:30 [...] (FLONASE) 50 mcg/actuation nasal spray Use 1 [place] in each nostril once daily. warfarin (COUMADIN) [...] your blood pressure is less than 120/80. [employer] [facility] package 30 - 40 mmHg pressure [...] 2017 2:42 PM Referring Provider: KEM ANDUJAR [[id number]] Allergies As of Date: 06/27/2017 Noted Allergy [...] Carmita (Rn) JEFF Verdin - Fully Assessed Primary Visit Diagnosis:APS (antiphospholipid syndrome) ([facility]) [D68.61] Order(s):LUPUS ANTICOAG PL [SQLUPUSP] Order #: [id number] FUTURE Disposition: Return in about 1 month [...] daily. FLUTICASONE 50 MCG/ACTUATION * Use 1 [place] in each nostril o* WARFARIN 5 MG [...] Encounter Status:Closed by ORIN LARES on 07/13/17 ALLERGIES ALLERGIES DATE TYPE / CODE NAME / CODE REACTION SEVERITY SOURCE 06/10/2018 Drug Iodinated Contrast- renal failure Unknown [place] Allergy/416 Oral and IV Community 338392(SN Dye/[id number]([facility] ED CT) RM) Repository 06/10/2018 Drug Gadolinium-MRI renal failure Unknown [place] Allergy/416 Contrast Community 903950(SN Medium/[id number]([facility] ED CT) XNORM) Repository 06/10/2018 Drug rhubarb/[id number]( Hives Unknown [place] Allergy/416 RXNORM) Community 729482([facility] ED CT) Repository 06/10/2018 Drug rituximab/[id number] Other Unknown [place] Allergy/416 6(RXNORM) Community 207332([facility] ED CT) Repository 06/10/2018 Drug heparin/[id number]( HIT Unknown [place] Allergy/416 RXNORM) Community 173310([facility] ED CT) Repository 11/14/2017 DRUG CHLORHEXIDINE RASH [facility] INGREDI/[address] [place] 015115([facility] Repository ED CT) 11/09/2016 DRUG RITUXIMAB OTHER: SEE [facility] INGREDI/[address] [place] 498983(SN Repository ED CT) 2016 DRUG IODINE OTHER: SEE [facility] INGREDI/[address] [place] 460556(SN Repository ED CT) 10/24/2013 DRUG RHUBARB RASH Med [facility] INGREDI/[address] [place] 737171([facility] Repository ED CT) 10/24/2013 DRUG HEPARIN OTHER: SEE [facility] INGREDI/[address] [place] 770607([facility] Repository ED CT) ENCOUNTERS ENCOUNTERS ADMIT/DISCHARGE ACCOUNT ADMITTING ENCOUNTER LOCATION SOURCE NUMBER CLASS 06/25/2018/ [id number] Inpatient [place] 018 Encounter [facility] [place] Repository 06/22/2018 [id number] ESTELA HULL Inpatient [place] Encounter [facility] [place] Repository 06/22/2018 [id number] Ambulatory [facility] ding:MEDOUTP Repository 06/19/2018/ [id number] [facility] ding:ED Repository 06/18/2018 [id number] Ambulatory [facility] ding:MEDOUTP Repository 06/15/2018 [id number] Ambulatory [facility] ding:MEDOUTP Repository 06/14/2018/ [id number] Emergency [place] 018 [facility] [place] Repository 06/12/2018/ [id number] Ambulatory [place] 018 [facility] [place] Repository 06/11/2018/ [id number] Ambulatory [place] 018 [facility] [place] Repository 06/10/2018/ [id number] [facility] 018 [facility] ding:ED Repository 06/08/2018 [id number] Ambulatory [facility] ding:MEDOUTP Repository 06/05/2018/ [id number] WILLARD MARTÍNEZ Inpatient [place] 018 Encounter [facility] [place] Repository 06/04/2018/ [id number] Emergency [address] ding:ED Repository 06/04/2018 [id number] Ambulatory [facility] ding:MEDOUTP Repository 05/28/2018/ [id number] Ambulatory [place] 018 [facility] [place] Repository 05/18/2018 [id number] Ambulatory [facility] ding:MEDOUTP Repository 05/14/2018/ [id number] ESTELA HULL Inpatient [place] 018 Encounter [facility] [place] Repository 05/14/2018/ [id number] Ambulatory [place] 018 [facility] [place] Repository 05/11/2018/ [id number] Ambulatory [place] 018 [facility] [place] Repository 05/11/2018 [id number] Ambulatory [facility] Hospital ding:MEDOUTP Repository 05/08/2018/ [id number] Ambulatory [place] 018 [facility] [place] Repository 05/06/2018/ [id number] Emergency [place] 018 [facility] [place] Repository 05/06/2018/ [id number] Emergency [place] 018 [facility] [place] Repository 05/04/2018 [id number] Ambulatory [facility] Hospital ding:MEDOUTP Repository 05/01/2018/ [id number] Inpatient [place] 018 Encounter [facility] [place] Repository 04/28/2018/ [id number] BIRD BRADSHAW Inpatient [place] 018 Encounter [facility] [place] Repository 04/27/2018 [id number] Ambulatory [facility] Hospital ding:MEDOUTP Repository 04/24/2018/ [id number] Emergency [address] ding:ED Repository 04/24/2018/ [id number] Ambulatory [facility]: [place] 018 [facility] Repository 04/23/2018 [id number] Ambulatory [facility] Hospital ding:MEDOUTP Repository 04/20/2018 [id number] Ambulatory [facility] Hospital ding:MEDOUTP Repository 04/18/2018/ [id number] Ambulatory [place] 018 [facility] [place] Repository 04/16/2018/ [id number] Ambulatory [place] 018 [facility] [place] Repository 04/12/2018 [id number] Ambulatory [facility] Hospital ding:MEDOUTP Repository 04/09/2018 [id number] Ambulatory [facility] Hospital ding:MEDOUTP Repository 04/05/2018 [id number] Ambulatory [facility] Hospital ding:MEDOUTP Repository 03/19/2018/ [id number] Ambulatory [place] 018 [facility] [place] Repository 03/14/2018/ [id number] Ambulatory [place] 018 [facility] [place] Repository 03/05/2018/ [id number] Inpatient [place] 018 Encounter [facility] [place] Repository 02/19/2018/ [id number] Inpatient [place] 018 Encounter [facility] [place] Repository 02/13/2018/ [id number] Ambulatory [place] 018 [facility] [place] Repository 02/09/2018 [id number] Ambulatory Micah Micah [facility] ding:MEDOUTP Repository 02/06/2018/ [id number] Inpatient [place] 018 Encounter [facility] [place] Repository 02/03/2018/ [id number] Ambulatory [place] 018 [facility] [place] Repository 02/03/2018 [id number] Ambulatory [place] [facility] [place] Repository 02/02/2018 [id number] Ambulatory [facility] ding:MEDOUTP Repository 01/29/2018/ [id number] Ambulatory [place] 018 [facility] [place] Repository 01/29/2018 [id number] Inpatient [place] Encounter [facility] [place] Repository 01/26/2018 [id number] [facility] Repository 01/24/2018/ [id number] Inpatient [place] 018 Encounter [facility] [place] Repository 01/23/2018/ [id number] Ambulatory [place] 018 [facility] [place] Repository 01/22/2018/ [id number] KWESI MANRIQUEZ Inpatient [place] 018 Encounter [facility] [place] Repository 01/22/2018/ [id number] Ambulatory [place] 018 [facility] [place] Repository 01/22/2018/ [id number] Ambulatory [place] 018 [facility] [place] Repository 01/22/2018/ [id number] Ambulatory [place] 018 [facility] [place] Repository 01/22/2018/ [id number] Ambulatory [place] 018 [facility] [place] Repository 01/22/2018/ [id number] Ambulatory [place] 018 [facility] [place] Repository 01/19/2018 [id number] Ambulatory [place] [facility] ding:MEDOUTP Repository 01/12/2018 [id number] [facility]ulatory [facility] ding:MEDOUTP Repository 01/08/2018/ [id number] Ambulatory [place] 018 [facility] [place] Repository 01/08/2018/ [id number] Ambulatory [place] 018 [facility] [place] Repository 01/05/2018 [id number] Ambulatory [facility] ding:MEDOUTP Repository 01/05/2018 [id number] Ambulatory [facility] ding:MEDOUTP Repository 01/02/2018 [id number] Ambulatory [facility] ding:MEDOUTP Repository 01/01/2018/ [id number] Ambulatory [place] 018 [facility] [place] Repository 12/29/2017 [id number] Ambulatory [facility] ding:MEDOUTP Repository 12/25/2017/ [id number] Ambulatory [place] 018 [facility] [place] Repository 12/22/2017 [id number] Ambulatory [facility] ding:MEDOUTP Repository 12/21/2017/ [id number] Ambulatory [place] 018 [facility] [place] Repository 12/19/2017 [id number] Ambulatory [facility] ding:MEDOUTP Repository 12/18/2017/ [id number] Ambulatory [place] 018 [facility] [place] Repository 12/18/2017/ [id number] Ambulatory [place] 018 [facility] [place] Repository 12/12/2017/ [id number] Inpatient [place] 018 Encounter [facility] [place] Repository 12/08/2017/ [id number] Ambulatory [place] 018 [facility] [place] Repository 12/08/2017/ [id number] Ambulatory [place] 018 [facility] [place] Repository 12/07/2017/ [id number] Ambulatory [place] 018 [facility] [place] Repository 12/05/2017/ [id number] Ambulatory [place] 018 [facility] [place] Repository 12/05/2017/ [id number] Ambulatory [place] 018 [facility] [place] Repository 12/05/2017/ [id number] Ambulatory [place] 018 [facility] [place] Repository 12/04/2017/ [id number] ELIJAH, Inpatient [place] 018 JOSE Encounter [facility] [place] Repository 12/02/2017/ [id number] GAEL VIEIRA Ambulatory [place] 018 OTTO [facility] [place] Repository 11/27/2017/ [id number] REAN, Inpatient [place] 018 NARENDRAKUMAR Encounter [facility] [place] Repository 11/13/2017/ [id number] Inpatient [place] 018 Encounter [facility] [place] Repository 11/03/2017/ [id number] ERAN, Inpatient [place] 018 NARENDRAKUMAR Encounter [facility] [place] Repository 11/02/2017/ [id number] MCKENNAPPAN, Ambulatory [place] 018 NARENDRAKUMAR [facility] [place] Repository 10/27/2017/ [id number] MCKENNAPPAN, Ambulatory [place] 018 NARENDRAKUMAR [facility] [place] Repository 10/25/2017/ [id number] NAMANAN, Inpatient [place] 018 NARENDRAKUMAR Encounter [facility] [place] Repository 10/23/2017/ [id number] STEVE WYATTNA Inpatient [place] 018 Encounter Clinic [facility] [place] Repository 10/23/2017/ [id number] Emergency [address] ding:ED Repository 10/20/2017 [id number] Ambulatory [facility] ding:MEDOUTP Repository 10/18/2017/ [id number] Inpatient [place] 018 Encounter [facility] [place] Repository 10/16/2017/ [id number] Inpatient [place] 018 Encounter [facility] [place] Repository 10/14/2017/ [id number] Ambulatory [place] 018 [facility] [place] Repository 10/14/2017/ [id number] Ambulatory [place] 018 [facility] [place] Repository 10/13/2017/ [id number] ROS CHRISTIE Inpatient [place] 018 Encounter [facility] [place] Repository 10/13/2017/ [id number] Emergency [place] 018 [facility] ding:ED Repository 10/13/2017 [id number] Ambulatory [facility]Building: [facility] Repository 10/13/2017 [id number] Ambulatory [facility] ding:MEDOUTP Repository 10/09/2017 [id number] Ambulatory [facility] ding:MEDOUTP Repository 10/06/2017 [id number] Ambulatory [facility] ding:MEDOUTP Repository 10/02/2017/ [id number] Inpatient [place] 018 Encounter [facility] [place] Repository 09/29/2017/ [id number] AUSTEN CHOUDHURY Inpatient [place] 018 R Encounter [facility] [place] Repository 09/29/2017 [id number] Ambulatory [facility] ding:MEDOUTP Repository 09/27/2017/ [id number] Ambulatory [place] 018 [facility] [place] Repository 09/27/2017/ [id number] Ambulatory [place] 018 [facility] [place] Repository 09/22/2017 [id number] Ambulatory [facility] ding:MEDOUTP Repository 09/18/2017/ [id number] Ambulatory [place] 018 [facility] [place] Repository 09/15/2017 [id number] Ambulatory [facility] ding:MEDOUTP Repository 09/12/2017/ [id number] Ambulatory [place] 018 [facility] [place] Repository 09/11/2017/ [id number] Ambulatory [place] 018 [facility] [place] Repository 09/11/2017 [id number] Ambulatory [place] [facility] [place] Repository 09/11/2017/ [id number] Ambulatory [place] 018 [facility] [place] Repository 09/11/2017 [id number] Ambulatory [facility] ding:MEDOUTP Repository 09/08/2017 [id number] [facility] ding:MEDOUTP Repository 09/06/2017/ [id number] Inpatient [place] [facility] [place] Repository 09/01/2017 [id number] [facility]ulatory [facility] ding:MEDOUTP Repository 08/25/2017/02/28 [id number] MADDIEDel LISSETH Terry Inpatient [place] 018 [facility] Repository 08/25/2017 [id number] Ambulatory [facility] ding:MEDOUTP Repository 08/21/2017/ [id number] Ambulatory [address] Repository 08/16/2017 [id number] Ambulatory [facility] ding:MEDOUTP Repository 08/11/2017 [id number] Ambulatory [facility] ding:MEDOUTP Repository 08/07/2017/ [id number] Ambulatory [address] Repository 08/07/2017/ [id number] Ambulatory [address] Repository 08/04/2017 [id number] Ambulatory [facility] ding:MEDOUTP Repository 07/28/2017 [id number] Ambulatory [facility] ding:MEDOUTP Repository 07/24/2017/ [id number] Ambulatory [address] Repository 07/21/2017 [id number] Ambulatory [facility] ding:MEDOUTP Repository 07/19/2017/ [id number] Ambulatory [address] Repository 07/14/2017 [id number] Ambulatory [facility] ding:MEDOUTP Repository 07/11/2017 [id number] Ambulatory [facility] Repository 07/11/2017/ [id number] Ambulatory [address] Repository 07/07/2017 [id number] Ambulatory [facility] ding:MEDOUTP Repository 06/30/2017 [id number] Ambulatory [facility] ding:MEDOUTP Repository 06/27/2017/ [id number] Ambulatory [address] Repository PAYERS PAYERS ENCOUNTER GUARANTOR PAYER SUBSCRIBER SOURCE 06/22/2018 PALOMA [id number] Primary [facility]OMA [facility]rien [facility] [address] Insurance:[facility] SHANOB: [address], [place] *IN [facility] [id number] Hospital 55473Qov: (330) Number: Repository [phone] () [id number] Date:3602-65-98QTLR CLAIMS [address], [place] [address]NI: 06/22/2018 Secondary NOT GIVENUNK [place] Insurance:SELF PAY [facility] Number: Effective Repository Date:2018-06-18 06/19/2018 PALOMA Aguilar [id number] Primary [facility] Insurance:MYCARE CRSC OLIVERDOB: Community [id number], [place] [facility] [id number] Hospital [address]60[address]Tbd: (330) Number: Repository [phone] () [id number] Date:0849-24-44XNEK CLAIMS [address], [place] [address]YG: 06/19/2018 Secondary NOT GIVENUNK Micah Insurance:SELF PAY [facility] Number: Effective Repository Date:2018-06-19 06/18/2018 PALMOA Aguilar [id number] Primary PALOMA Aguilar [facility] [address] Insurance:MYCARE CRSC OLIVERDOB: Community [id number], [place] [facility] [id number] Hospital [address]Fdm: (330) Number: Repository [phone] () [id number] Date:0302-86-83RTGD CLAIMS [address], [place] [address]QP: 06/18/2018 Secondary NOT GIVENUNK [place] Insurance:SELF PAY [facility] Number: Effective Repository Date:2018-06-15 06/15/2018 PALOMA Aguilar [id number] Primary [facility] [address] Insurance:MYCARE CRSC OLIVERDOB: Community [id number], [place] [facility] [id number] Hospital [address]Rda: (330) Number: Repository [phone] () [id number] Date:9009-54-03ONJQ [place]S [address] [address]PR: 06/15/2018 Secondary NOT GIVENUNK [place] Insurance:SELF PAY [facility] Number: Effective Repository Date:2018-06-12 06/10/2018 PALOMA Aguilar [id number] [facility] PALOMA Aguilar [facility] [address] Insurance:MYCARE CRSC OLIVERDOB: Community [id number], [place] [facility] [id number] Hospital [address]Yuz: (330) Number: Repository [phone] () [id number] Date:7771-98-89ZCAV CLAIMS [address], [place] [address]JJ: 06/10/2018 Secondary NOT GIVENUNK [place] Insurance:SELF PAY [facility] Number: Effective Repository Date:2018-06-10 06/08/2018 PALOMA Aguilar [id number] [facility] [address] Insurance:MYCARE CRSC OLIVERDOB: Community [id number], [place] [facility] [id number] Hospital [address]Yzb: (330) Number: Repository [phone] () [id number] Date:1391-79-35PLHM CLAIMS [address], [place] [address]CP: 06/08/2018 Secondary NOT GIVENUNK Micah Insurance:SELF PAY [facility] Number: Effective Repository Date:2018-06-04 06/04/2018 PALOMA Aguilar [id number] [facility] [address] Insurance:MYCARE CRSC OLIVERDOB: Community [id number], [place] [facility] [id number] Hospital [address]Bsb: (330) Number: Repository [phone] () [id number] Date:5706-78-72JYGO CLAIMS [address], [place] [address]MY: 06/04/2018 Secondary NOT GIVENUNK [place] Insurance:SELF PAY [facility] Number: Effective Repository Date:2018-06-04 06/04/2018 PALOMA Aguilar [id number] Primary PALOMA [address] Insurance:MYCARE CRSC OLIVERDOB: Community [id number], [place] [facility] [id number] Hospital [address]Oaj: (330) Number: Repository [phone] () [id number] Date:2232-16-99YITF CLAIMS DE[address]PO [address] [address]GW: 06/04/2018 Secondary NOT GIVENUNK Micah Insurance:SELF PAY [facility] Number: Effective Repository Date:2018-06-04 05/18/2018 PALOMA Aguilar [id number] Primary [facility] Insurance:MYCARE CRSC OLIVERDOB: Community [id number], [place] [facility] [id number] Hospital [address]Yjh: (330) Number: Repository [phone] () [id number] Date:6658-75-97CRTW CLAIMS DEPTPO [address] [address]HP: 05/18/2018 Secondary NOT GIVENUNK [place] Insurance:SELF PAY [facility] Number: Effective Repository Date:2018-05-02 05/11/2018 PALOMA Aguilar [id number] Primary PALOMA [address] Insurance:MYCARE CRSC OLIVERDOB: Community [id number], [place] [facility] [id number] Hospital [address]Ahp: (330) Number: Repository [phone] () [id number] Date:6203-28-81SRJT CLAIMS DEPTPO [address] [address]JY: 05/11/2018 Secondary NOT GIVENUNK Micah Insurance:SELF PAY [facility] Number: Effective Repository Date:2018-04-27 05/04/2018 PALOMA Aguilar [id number] Primary PALOMA [address] Insurance:MYCARE CRSC OLIVERDOB: Community [id number], [place] [facility] [id number] Hospital [address]Nxi: (330) Number: Repository [phone] () [id number] Date:5408-21-33PNFK CLAIMS DEPTPO [address] [place] [address]AC: 05/04/2018 Secondary NOT GIVENUNK Micah Insurance:SELF PAY [facility] Number: Effective Repository Date:2018-04-20 04/27/2018 PALOMA Aguilar [id number] Primary PALOMA Aguilar [facility] [address] Insurance:MYCARE CRSC OLIVERDOB: Community [id number], [place] [facility] [id number] Hospital [address]Aus: (330) Number: Repository [phone] () [id number] Date:6772-52-64NOGG CLAIMS DEPTPO [address] [place] [address]JJ: 04/27/2018 Secondary NOT GIVENUNK Micah Insurance:SELF PAY [facility] Number: Effective Repository Date:2018-04-20 04/24/2018 PALOMA Aguilar [id number] [facility] RD[address] Insurance:MYCARE CRSC OLIVERDOB: Community [id number], [place] [facility] [id number] Hospital [address]Rba: (330) Number: Repository [phone] () [id number] Date:6883-40-86GQGZ CLAIMS DEPTPO [address] [place] [address]ET: 04/24/2018 Secondary PALOMA Obrien Insurance:MEDICARE OLIVERDOB: Community PART A [facility] [id number] Hospital Number: Repository [id number] Date:2018-04-24 04/24/2018 Tertiary NOT GIVENUNK [place] Insurance:SELF PAY [facility] Number: Effective Repository Date:2018-04-24 04/24/2018 PALOMA Aguilar [id number] [facility] [address] Insurance:MYCARE CRSC OLIVERDOB: Community [id number], [place] [facility] [id number] Hospital [address]89[address]Tcq: (330) Number: Repository [phone] () [id number] Date:1371-18-50XGBO CLAIMS DEPTPO [address] [place] [address]TV: 04/24/2018 Secondary PALOMA Obrien Insurance:MEDICAIDPol OLIVERDOB: Community icy Number: [id number] Hospital [id number] Repository Date:2018-04-24 04/24/2018 Tertiary NOT GIVENUNK Micah Insurance:SELF PAY [facility] Number: Effective Repository Date:2018-04-24 04/23/2018 PALOMA Aguilar [id number] Primary NOT GIVENUNK Micah [address] Insurance:SELF PAY [address] [address]Nfl: (330) Number: Effective Repository [phone] () Date:2018-04-23 04/20/2018 PALOMA Aguilar [id number] Primary PALOMA [address] Insurance:MYCARE CRSC OLIVERDOB: [address] *IN [facility] [id number] Hospital [address]Upf: (330) Number: Repository [phone] () [id number] Date:2475-41-01WFEN CLAIMS DEPTPO [address] [place] [address]WI: 04/20/2018 Secondary NOT GIVENUNK [place] Insurance:SELF PAY [facility] Number: Effective Repository Date:2018-04-20 04/12/2018 PALOMA Aguilar [id number] Primary PALOMA [address] Insurance:MYCARE CRSC OLIVERDOB: Community [address] *IN [facility] [id number] Hospital [address]Ilf: (330) Number: Repository [phone] () [id number] Date:9381-66-23BTYI CLAIMS DEPTPO [address] [place] [address]WB: 04/12/2018 Secondary NOT GIVENUNK Micah Insurance:SELF PAY [facility] Number: Effective Repository Date:2018-04-11 04/09/2018 PALOMA Aguilar [id number] Primary PALOMA [address] Insurance:MYCARE CRSC OLIVERDOB: Community [id number], [place] [facility] [id number] Hospital [address]Wtp: (330) Number: Repository [phone] () [id number] Date:9605-87-41NGJB CLAIMS [address], [place] [address]JV: 04/09/2018 Secondary NOT GIVENUNK [place] Insurance:SELF PAY [facility] Number: Effective Repository Date:2018-04-04 04/05/2018 PALOMA Aguilar [id number] Primary PALOMA Lauren [facility] [address] Insurance:MYCARE CRSC OLIVERDOB: Community [id number], [place] [facility] [id number] Hospital [address]Nxd: (330) Number: Repository [phone] () [id number] Date:7992-05-67OQRY CLAIMS [address], [place] [address]CY: 04/05/2018 Secondary NOT GIVENUNK [place] Insurance:SELF PAY [facility] Number: Effective Repository Date:2018-04-04 02/09/2018 PALOMA Aguilar [id number] Primary PALOMA Obrien [address] Insurance:MYCARE CRSC OLIVERDOB: Community [id number], [place] [facility] [id number] Hospital 18406Yol: (330) Number: Repository [phone] () [id number] Date:0052-05-98TCZQ CLAIMS [address], [place] [address]UP: 02/09/2018 Secondary NOT GIVENUNK [place] Insurance:SELF PAY [facility] Number: Effective Repository Date:2018-01-25 02/02/2018 PALOMA Aguilar [id number] Primary [facility] Insurance:MYCARE CRSC OLIVERDOB: Community [id number], [place] [facility] [id number] Hospital [address]Vdu: (330) Number: Repository [phone] () [id number] Date:8566-70-98ARCX [place]S [address]PTPO [address] [address]EX: 02/02/2018 Secondary NOT GIVENUNK Micah Insurance:SELF PAY [facility] Number: Effective Repository Date:2018-01-25 01/26/2018 PALOMA Aguilar [id number] Primary [facility] [address] Insurance:MYCARE CRSC OLIVERDOB: [place] [id number], [place] [facility] [id number] Hospital [address]Wdn: (330) Number: Repository [phone] () [id number] Date:5527-06-32RJUX CLAIMS [address] [address]ZK: 01/26/2018 Secondary NOT GIVENUNK Micah Insurance:SELF PAY [facility] Number: Effective Repository Date:2018-01-25 01/19/2018 PALOMA Aguilar [id number] Primary [facility] Insurance:MYCARE CRSC OLIVERDOB: Community [id number], [place] [facility] [id number] Hospital [address]Mzy: (330) Number: Repository [phone] () [id number] Date:7526-72-64USKP CLAIMS DEPTPO [address] [address]UR: 01/19/2018 Secondary NOT GIVENUNK [place] Insurance:SELF PAY [facility] Number: Effective Repository Date:2018-01-05 01/12/2018 PALOMA Aguilar [id number] Primary [facility] Insurance:MYCARE CRSC OLIVERDOB: [place] [id number], [place] [facility] [id number] Hospital 31[address]Dio: (330) Number: Repository [phone] () [id number] Date:7154-59-25DFLB CLAIMS DE[address]PO [address] [address]QO: 01/12/2018 Secondary NOT GIVENUNK [place] Insurance:SELF PAY Community [facility] Number: Effective Repository Date:2018-01-05 01/05/2018 PALOMA Aguilar [id number] Primary [facility] Insurance:MYCARE CRSC OLIVERDOB: Community [id number], [place] [facility] [id number] Hospital 19483Lqt: (330) Number: Repository [phone] () [id number] Date:7170-23-59AZBC CLAIMS DEPTPO [address] [address]WO: 01/05/2018 Secondary NOT GIVENUNK [place] Insurance:SELF PAY [facility] Number: Effective Repository Date:2017-12-29 01/05/2018 PALOMA Aguilar [id number] Primary PALOMA Obrien [address] Insurance:MYCARE CRSC OLIVERDOB: Community [id number], [place] [facility] [id number] Hospital 10142Bah: (330) Number: Repository [phone] () [id number] Date:9130-11-23TZGE CLAIMS [address] [address]RJ: 01/05/2018 Secondary NOT GIVENUNK [place] Insurance:SELF PAY [facility] Number: Effective Repository Date:2018-01-05 01/02/2018 PALOMA Aguilar [id number] Primary PALOMA Obrien [address] Insurance:MYCARE CRSC OLIVERDOB: Community [id number], [place] [facility] [id number] Hospital 426[address]Roj: (330) Number: Repository [phone] () [id number] Date:2720-08-84KUSC CLAIMS DEPTPO [address] [address]GK: 01/02/2018 Secondary NOT GIVENUNK [place] Insurance:SELF PAY [facility] Number: Effective Repository Date:2018-01-01 12/29/2017 PALOMA Aguilar [id number] Primary [facility] Insurance:MYCARE CRSC OLIVERDOB: [place] [id number], [place] [facility] [id number] Hospital 38[address]Jqa: (330) Number: Repository [phone] (HP) [id number] Date:9770-34-23NKKA CLAIMS [address], [place] [address]CJ: 12/29/2017 Secondary NOT GIVENUNK [place] Insurance:SELF PAY [facility] Number: Effective Repository Date:2017-12-28 12/22/2017 PALOMA M [id number] Primary PALOMA Aguilar [facility] [address] Insurance:MYCARE CRSC OLIVERDOB: Community [id number], [place] [facility] [id number] Hospital 079[address]Vpa: Number: Repository [phone] [id number] (HP) Date:6206-68-93PZYG CLAIMS DEPTPO [address] [place] [address]MZ: 12/22/2017 Secondary NOT GIVENUNK [place] Insurance:SELF PAY [facility] Number: Effective Repository Date:2017-12-21 12/19/2017 PALOMA [id number] Primary [facility] [address] Insurance:MYCARE CRSC OLIVERDOB: Community [id number], [place] [facility] [id number] Hospital [address]60[address]Hke: Number: Repository [phone] [id number] (HP) Date:7374-35-37PBIR CLAIMS DEPTPO [address] [place] [address]XM: 12/19/2017 Secondary NOT GIVENUNK Micah Insurance:SELF PAY [facility] Number: Effective Repository Date:2017-12-18 10/23/2017 PALOMA Lauren [id number] Primary PALOMA Aguilar [facility] Insurance:MYCARE CRSC OLIVERDOB: Community [id number], [place] [facility] [id number] Hospital [address]Nmr: Number: Repository [phone] [id number] (HP) Date:3031-72-30XNDT CLAIMS DEPTPO [address] [address]LJ: 10/23/2017 Secondary NOT GIVENUNK Micah Insurance:SELF PAY [facility] Number: Effective Repository Date:2017-10-23 10/20/2017 PALOMA Aguilar [id number] Primary PALOMA Aguilar [facility] [address] Insurance:MYCARE CRSC OLIVERDOB: Community [id number], [place] [facility] [id number] Hospital 7[address]Gem: Number: Repository [phone] [id number] (HP) Date:6680-39-86DRGJ CLAIMS [address], [place] [address]LU: 10/20/2017 Secondary NOT GIVENUNK Micah Insurance:SELF PAY [facility] Number: Effective Repository Date:2017-10-13 10/13/2017 PALOMA Aguilar [id number] Primary [facility] [address] Insurance:MYCARE CRSC OLIVERDOB: [place] [id number], [place] [facility] [id number] Hospital 17[address]Sqn: Number: Repository [phone] [id number] (HP) Date:7375-40-77LLJM CLAIMS DEPTPO [address] [address]NE: 10/13/2017 Secondary NOT GIVENUNK [place] Insurance:SELF PAY [facility] Number: Effective Repository Date:2017-10-13 10/13/2017 PALOMA Aguilar [id number] Primary PALOMA Lauren [facility] [address] Insurance:MYCARE CRSC OLIVERDOB: Community [id number], [place] [facility] [id number] Hospital [address]28[address]Jde: Number: Repository [phone] [id number] (HP) Date:0350-20-36YEWI CLAIMS DEPTPO [address] [address]ED: 10/13/2017 Secondary NOT GIVENUNK Micah Insurance:SELF PAY [facility] Number: Effective Repository Date:2017-10-13 10/13/2017 PALOMA Aguilar [id number] Primary PALOMA [address] Insurance:MYCARE CRSC OLIVERDOB: Community [address] [place] [facility] [id number] Hospital 15[address]Vrn: Number: Repository [phone] [id number] (HP) Date:5158-75-79MYYK CLAIMS DEPTPO [address] [place] [address]RM: 10/13/2017 Secondary NOT GIVENUNK Micah Insurance:SELF PAY [facility] Number: Effective Repository Date:2017-10-09 10/09/2017 PALOMA Aguilar [id number] Primary [address]OMA [address] Insurance:MYCARE CRSC OLIVERDOB: [address] *IN [facility] [id number] Hospital 839[address]Xkh: Number: Repository [phone] [id number] (HP) Date:1372-31-33ABFX CLAIMS DEPTPO [address] [place] [address]AC: 10/09/2017 Secondary NOT GIVENUNK Micah Insurance:SELF PAY [facility] Number: Effective Repository Date:2017-10-06 10/06/2017 PALOMA Aguilar [id number] Primary [address]OMA [address] Insurance:MEDICARE OLIVERDOB: [address] PART A [facility] [id number] Hospital 15[address]Ubv: Number: Repository [phone] [id number] (HP) Date:2017-09-29 10/06/2017 Secondary PALOMA Obrien Insurance:MEDICAIDPol OLIVERDOB: [facility] Number: [id number] Hospital [id number] Repository Date:2017-09-29 10/06/2017 Tertiary NOT GIVENUNK [place] Insurance:SELF PAY [facility] Number: Effective Repository Date:2017-09-29 09/29/2017 PALMOA Aguilar [id number] Primary [address]OMA [address] Insurance:MEDICARE OLIVERDOB: Community [address] PART A [facility] [id number] Hospital [address]Huk: Number: Repository [phone] [id number] (HP) Date:2017-09-22 09/29/2017 Secondary PALOMA Obrien Insurance:MEDICAIDPol OLIVERDOB: Community icy Number: [id number] Hospital [id number] Repository Date:2017-09-22 09/29/2017 Tertiary NOT GIVENUNK [place] Insurance:SELF PAY [facility] Number: Effective Repository Date:2017-09-22 09/22/2017 PALOMA Aguilar [id number] Primary PALOMA [address] Insurance:MEDICARE OLIVERDOB: [address] PART A [facility] [id number] Hospital 423[address]Sne: Number: Repository [phone] [id number] (HP) Date:2017-09-22 09/22/2017 Secondary PALOMA Obrien Insurance:MEDICAIDPol OLIVERDOB: Community icy Number: [id number] Hospital [id number] Repository Date:2017-09-22 09/22/2017 Tertiary NOT GIVENUNK [place] Insurance:SELF PAY [facility] Number: Effective Repository Date:2017-09-22 09/15/2017 PALOMA Aguilar [id number] Primary [address]OMA [address] Insurance:MEDICARE OLIVERDOB: [address] PART A [facility] [id number] Hospital [address]Vqv: Number: Repository [phone] [id number] (HP) Date:2017-09-08 09/15/2017 Secondary PALOMA Obrien Insurance:MEDICAIDPol OLIVERDOB: Community icy Number: [id number] Hospital [id number] Repository Date:2017-09-08 09/15/2017 Tertiary NOT GIVENUNK Micah Insurance:SELF PAY [facility] Number: Effective Repository Date:2017-09-08 09/11/2017 PALOMA Aguilar [id number] Primary PALOMA M [place] [address] Insurance:MEDICARE OLIVERDOB: [address] PART A [facility] [id number] Hospital 233[address]Xhc: Number: Repository [phone] [id number] (HP) Date:2017-09-08 09/11/2017 Secondary PALOMA Varelaoster Insurance:MEDICAIDPol OLIVERDOB: Community icy Number: [id number] Hospital [id number] Repository Date:2017-09-08 09/11/2017 Tertiary NOT GIVENUNK [place] Insurance:SELF PAY [facility] Number: Effective Repository Date:2017-09-08 09/08/2017 PALOMA Aguilar [id number] Primary [address] Insurance:MEDICARE OLIVERDOB: [address] PART A [facility] [id number] Hospital 027[address]Lkz: (330) Number: Repository [phone] () [id number] Date:2017-08-31 09/08/2017 Secondary PALOMA Aguilar [place] Insurance:MEDICAIDPol OLIVERDOB: Community icy Number: [id number] Hospital [id number] Repository Date:2017-08-31 09/08/2017 Tertiary NOT GIVENUNK [place] Insurance:SELF PAY [facility] Number: Effective Repository Date:2017-08-31 09/01/2017 PALOMA [id number] Primary PALOMA OLIVERDOB: Micah [address] Insurance:MEDICARE [id number] PART A [facility] [address]Bwz: Number: Repository [phone] [id number] (HP) Date:2017-08-25 09/01/2017 Secondary PALOMA OLIVERDOB: Micah Insurance:MEDICAIDPol [id number] Community icy Number: Hospital [id number] Repository Date:2017-08-25 09/01/2017 Tertiary NOT GIVENUNK Micah Insurance:SELF PAY [facility] Number: Effective Repository Date:2017-08-25 08/25/2017 PALOMA [id number] Primary PALOMA OLIVERDOB: [place] [address] Insurance:MEDICARE [id number] PART A [facility] [address]Isr: Number: Repository [phone] [id number] (HP) Date:2017-08-18 08/25/2017 Secondary PALOMA OLIVERDOB: [place] Insurance:MEDICAIDPol [id number] [facility] icy Number: Hospital [id number] Repository Date:2017-08-18 08/25/2017 Tertiary NOT GIVENUNK [place] Insurance:SELF PAY [facility] Number: Effective Repository Date:2017-08-18 08/16/2017 PALOMA Aguilar [id number] Primary PALOMA YOUSSEF [address]APT Insurance:MEDICARE OLIVERDOB: [address] PART A [facility] [id number] Hospital [id number]: (330) Number: Repository [phone] () [id number] Date:2017-08-11 08/16/2017 Secondary PALOMA Aguilar [place] Insurance:MEDICAIDPol OLIVERDOB: [facility] icy Number: [id number] Hospital [id number] Repository Date:2017-08-11 08/16/2017 Tertiary NOT GIVENUNK [place] Insurance:SELF PAY [facility] Number: Effective Repository Date:2017-08-11 08/11/2017 PALOMA [id number] Primary PALOMA OLIVERDOB: [place] [address] Insurance:MEDICARE [id number] [address] PART A [facility] [address]Ncu: Number: Repository [phone] [id number] (HP) Date:2017-07-31 08/11/2017 Secondary PALOMA OLIVERDOB: [place] Insurance:MEDICAIDPol [id number] [facility] icy Number: Hospital [id number] Repository Date:2017-07-31 08/11/2017 Tertiary NOT GIVENUNK [place] Insurance:SELF PAY [facility] Number: Effective Repository Date:2017-07-31 08/04/2017 PALOMA Aguilar [id number] Primary PALOMA [address] Insurance:MEDICARE OLIVERDOB: [address] PART A [facility] [id number] Hospital [address]Xis: Number: Repository [phone] [id number] () Date:2017-07-28 08/04/2017 Secondary PALOMA Obrien Insurance:MEDICAIDPol OLIVERDOB: Community icy Number: [id number] Hospital [id number] Repository Date:2017-07-28 08/04/2017 Tertiary NOT GIVENUNK [place] Insurance:SELF PAY [facility] Effective Repository Date:2017-07-28 07/28/2017 PALOMA Aguilar [id number] Primary PALOMA [address] Insurance:MEDICARE OLIVERDOB: [address] PART A [facility] [id number] Hospital [address]Puk: [phone] Number: Repository [phone] () [id number] Date:2017-07-21 07/28/2017 Secondary PALOMA Ob[place] Insurance:MEDICAIDPol OLIVERDOB: Community icy Number: [id number] Hospital [id number] Repository Date:2017-07-21 07/28/2017 Tertiary NOT GIVENUNK [place] Insurance:SELF PAY [facility] Number: Effective Repository Date:2017-07-21 07/21/2017 PALOMA Aguilar [id number] Primary PALOMA [address] Insurance:MEDICARE BUTTERBAUGHDOB: [address] PART A [facility] [id number] Hospital [id number]: Number: Repository [phone] [id number] () Date:2017-07-14 07/21/2017 Secondary PALOMA Ob[place] Insurance:MEDICAIDPol BUTTERBAUGHDOB: Community icy Number: [id number] Hospital [id number] Repository Date:2017-07-14 07/21/2017 Tertiary NOT GIVENUNK [place] Insurance:SELF PAY [facility] Number: Effective Repository Date:2017-07-14 07/14/2017 PALOMA [id number] Primary [address] Insurance:MEDICARE BUTTERBAUGHDOB: [address] PART A [facility] [id number] Hospital [address]Vgk: [phone] Number: Repository [phone] () [id number] Date:2017-07-07 07/14/2017 Secondary PALOMA Aguilar Miach Insurance:MEDICAIDPol BUTTERBAUGHDOB: Community icy Number: [id number] Hospital [id number] Repository Date:2017-07-07 07/14/2017 Tertiary NOT GIVENUNK [place] Insurance:SELF PAY [facility] Number: Effective Repository Date:2017-07-07 07/07/2017 PALOMA [id number] [facility] [address] [address] Insurance:MEDICARE OLIVERDOB: Community [address] PART A olicy [id number] Hospital [address]Xia: [phone]) Number: Repository [phone] () [id number] Date:2017-06-30 07/07/2017 Secondary PALOMA OLIVERDOB: Micah Insurance:MEDICAIDPol [id number] [facility] icy Number: Hospital [id number] Repository Date:2017-06-30 07/07/2017 Tertiary NOT GIVENUNK [place] Insurance:SELF PAY [facility] Number: Effective Repository Date:2017-06-30 06/30/2017 PALOMA [id number] Primary [facility] Insurance:MEDICARE BUTTERBAUGHDOB: Community [address] PART A olic [id number] Hospital [address]Qqf: ([phone]) Number: Repository [phone] () [id number] Date:2017-06-23 06/30/2017 Secondary PALOMA OLIVERDOB: [place] Insurance:MEDICAIDPol [id number] Community icy Number: Hospital [id number] Repository Date:2017-06-23 06/30/2017 Tertiary NOT GIVENUNK [place] Insurance:SELF PAY [facility] Number: Effective Repository Date:2017-06-23
== END 2018-06-10 04:21 | disposition home or self-care (01) ==
PROVIDERS: Emergency Provider Emergency Medicine; Family Provider Internal Medicine; PCP Internal Medicine
DX: M54.5 Low back pain (principal); G89.29 Other chronic pain; R20.0 Anesthesia of skin; K66.1 Hemoperitoneum; D68.61 Antiphospholipid syndrome; I12.9 Hypertensive chronic kidney disease with stage 1 through stage 4 chronic kidney disease, or unspecified chronic kidney disease; N18.3 Chronic kidney disease, stage 3 (moderate); D64.9 Anemia, unspecified; E66.01 Morbid (severe) obesity due to excess calories; Z79.01 Long term (current) use of anticoagulants; Z79.52 Long term (current) use of systemic steroids; Z79.899 Other long term (current) drug therapy; Z86.718 Personal history of other venous thrombosis and embolism
CPT/HCPCS: 74176; 80048; 85027; 85610; 99282; A4216

== ENCOUNTER → 2018-06-15 08:42 | Outpatient (CLI) | payer MEDICARE, SELFPAY ==
[2018-06-10 01:02] VITALS: BMI 38.2
[2018-06-15 09:24] LABS: International Normalized Ratio 1.8; Prothrombin Time (Protime)PT. 20.9 SECONDS (11.7-14.9)
== END ==
PROVIDERS: Family Provider Internal Medicine; PCP Internal Medicine; Referring Provider Nurse Practitioner Adult Health; Visit Provider Nurse Practitioner Adult Health
DX: D75.82 Heparin induced thrombocytopenia (HIT) (principal); I82.409 Acute embolism and thrombosis of unspecified deep veins of unspecified lower extremity
CPT/HCPCS: 36592; 85610; A4216

== ENCOUNTER → 2018-06-18 07:52 | Outpatient (CLI) | payer MEDICARE, SELFPAY ==
[2018-06-10 01:02] VITALS: BMI 38.2
[2018-06-18 08:58] LABS: International Normalized Ratio 1.6; Prothrombin Time (Protime)PT. 19.2 SECONDS (11.7-14.9)
== END ==
PROVIDERS: Family Provider Internal Medicine; PCP Internal Medicine; Referring Provider Nurse Practitioner Adult Health; Visit Provider Nurse Practitioner Adult Health
DX: D75.82 Heparin induced thrombocytopenia (HIT) (principal); I82.409 Acute embolism and thrombosis of unspecified deep veins of unspecified lower extremity
CPT/HCPCS: 36592; 85610; A4216

== ENCOUNTER 2018-06-19 22:03 | Emergency (ER) | payer MEDICARE, SELFPAY ==
[2018-06-19 22:03] VITALS: BP 151/103; PULSE 97; RESP 18; TEMP 35.9; O2SAT 100; BMI 34.7
--- NOTE | 2018-06-19 22:25 | ED.DCSUM_ITS ---
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 Her pain is located on the medial leg from the ankle to the mid thigh. Patient takes Tylenol for her leg pain, which she has had for several months. She has occasions of breakthrough severe pain such as tonight, pain is been worse since dinnertime. Patient has chronic leg numbness but no new changes in sensation other than the worsening of her chronic pain. Patient was recently hospitalized for a retroperitoneal hematoma that is stabilized. She is currently on Coumadin. Patient is in the process of transitioning from pain management to palliative care. Physical Examination: Vital signs: afebrile, hemodynamically stable, no hypoxia on room air General: well nourished, well developed, in no distress Skin: warm, dry, pallor HEENT: normocephalic and atraumatic; PERRL, EOMI, moist mucous membranes Cardiovascular: regular rate and rhythm Respiratory: No increased work of breathing MSK: Moves all extremities, no deformities, chronic skin changes to the lower legs below the knee, left calf greater in diameter than the right, tenderness to palpation, no palpable cords Neuro: Awake and alert, oriented ?4. No facial droop, sensation and motor function intact and symmetric Test Results: Abnormal Lab Results 06/19/18 22:44 PT 22.2 H INR 1.9 Medications Given Discontinued Medications Hydromorphone HCl (Dilaudid Inj) 1 mg IM X1 ONE Stop: 06/19/18 23:23 Oxycodone HCl (Oxyir) 10 mg PO X1 ONE Stop: 06/19/18 22:26 Last Admin: 06/19/18 22:40 Dose: 10 mg Emergency Department Course and Treatment: Patient states her INR was low on Monday. It was checked tonight and is 1.9, which is barely subtherapeutic. Patient's goal is between 2 and 3. She is not taking her Coumadin yet tonight and was encouraged to do so. Patient states that there is nothing different about her pain and concern for for another cause of it other than it is poorly controlled. Patient is pursuing palliative care to help with her chronic health issues and chronic pain. We discussed that I cannot prescribe her any opiate medication for home due to [place] state laws. However patient's pain was treated in the emergency department. She was given oxycodone. On reevaluation she stated it had not affected her pain at all and it normally requires Dilaudid for control. Patient was given 1 mg of IM Dilaudid. Patient's leg pain was consistent with her chronic leg pain, with no change other than poorly controlled, and thus much less concerning for DVT. Thus no further workup performed for DVT. Patient discharged home and is to follow-up with her doctors to manage her calciphylaxis as well as her palliative care consult. Treatment Plan: [] Disposition: [] Impression: Acute on chronic leg pain secondary to calciphylaxis This note was generated with rocket staff dictation software. It may contain incorrect words, spelling, and punctuation that were not noted in review of the chart prior to signing ED Disposition - Plan for ED Patient: Disposition: Home or Assisted Living Chief Complaint: Lower Extremity Injury Instructions: ED Chronic Pain Management Referrals: Peyton López MD [Primary Care Provider] - Doctor,Your [STAFF PHYSICIAN] - As soon as possible Additional Instructions: Please follow-up with your doctor as soon as possible for reevaluation of your calciphylaxis. Keep your appointment with your palliative care consult. Continue your Coumadin as prescribed. If you have any worsening of your condition or any new concerning symptoms, please return immediately to the emergency department for another evaluation.
[2018-06-19] MEDS: oxyCODONE 5 MG Tablet 10 MG PO (22:40)
[2018-06-19 23:02] LABS: International Normalized Ratio 1.9; Prothrombin Time (Protime)PT. 22.2 SECONDS (11.7-14.9)
--- NOTE | 2018-06-19 23:23 | ED.DEP ---
ED Disposition - Plan for ED Patient: Disposition: Home or Assisted Living Chief Complaint: Lower Extremity Injury Instructions: ED Chronic Pain Management Referrals: Peyton López MD [Primary Care Provider] - Doctor,Your [STAFF PHYSICIAN] - As soon as possible Additional Instructions: Please follow-up with your doctor as soon as possible for reevaluation of your calciphylaxis. Keep your appointment with your palliative care consult. Continue your Coumadin as prescribed. If you have any worsening of your condition or any new concerning symptoms, please return immediately to the emergency department for another evaluation.
[2018-06-19] MEDS: HYDROmorphone 1 MG/ML Syringe IM (23:34)
--- OUTSIDE RECORDS SUMMARY | 2018-08-06 00:41 | XMS RPT_ITS ---
:1990 Author Organization OHIP Support Name Relationship Address Phone JANE AIKEN/SILVER Unavailable [address] + [place] [address] D Unavailable Unavailable Unavailable MORTEZA CANNON Unavailable [address] + [place] [address] JANE AIKEN/SILVER Unavailable [address] + [place] [address] D Unavailable Unavailable Unavailable MORTEZA CANNON Unavailable [address] + [place] [address] NELLI JANE/SILVER Unavailable [address] + [place] [address] D Unavailable Unavailable Unavailable MORTEZA CANNON Unavailable [address] + [place] [address] NELLI JANE/SILVER Unavailable [address] + [place] [address] D Unavailable Unavailable Unavailable MORTEZA CANNON Unavailable [address] + [place] [address] JANE AIKEN/SILVER Unavailable [address] + [place] [address] D Unavailable Unavailable Unavailable MORTEZA CANNON Unavailable [address] + [place] [address] JANE AIKEN/SILVER Unavailable [address] + [place] [address] D Unavailable Unavailable Unavailable MORTEZA CANNON Unavailable [address] + [place] [address] BUTTERBAUGH, JANE/SILVER Unavailable [address] + [place] [address] D Unavailable Unavailable Unavailable MORTEZA CANNON Unavailable [address] + [place] [address] NELLI JANE/SILVER Unavailable [address] + [place] [address] D Unavailable Unavailable Unavailable MORTEZA CANNON Unavailable [address] + [place] [address] ENLLI JANE/SILVER Unavailable [address] + [place] [address] D Unavailable Unavailable Unavailable MORTEZA CANNON Unavailable [address] + [place] [address] NELLI JANE/SILVER Unavailable [address] + [place] [address] D Unavailable Unavailable Unavailable MORTEZA CANNON Unavailable [address] + [place] [address] RICKEYBAMELISSA JANE/SILVER Unavailable [address] + [place] [address] D Unavailable Unavailable Unavailable MORTEZA CANNON Unavailable [address] + [place] [address] BUTTERBAMELISSA JANE/SILVER Unavailable [address] + [place] [address] D Unavailable Unavailable Unavailable MORTEZA CANNON Unavailable [address] + [place] [address] BUTTERBAMELISSA JANE/SILVER Unavailable [address] + [place] [address] D Unavailable Unavailable Unavailable MORTEZA CANNON Unavailable [address] + [place] [address] BUTTERBAMELISSA, JANE/SILVER Unavailable [address] + [place] [address] D Unavailable Unavailable Unavailable MORTEZA CANNON Unavailable [address] + [place] [address] BUTTERBAMELISSA, JANE/SILVER Unavailable [address] + [place] [address] D Unavailable Unavailable Unavailable MORTEZA CANNON Unavailable [address] + [place] [address] RICKEYBAMELISSA, JANE/SILVER Unavailable [address] + [place] [address] D Unavailable Unavailable Unavailable MORTEZA CANNON Unavailable [address] + [place] [address] RICKEYBAMELISSA, JANE/SILVER Unavailable [address] + [place] [address] D Unavailable Unavailable Unavailable MORTEZA CANNON Unavailable [address] + [place] [address] NELLI, JANE/SILVER Unavailable [address] + [place] [address] D Unavailable Unavailable Unavailable MORTEZA CANNON Unavailable [address] + [place] [address] NELLI, JANE/SILVER Unavailable [address] + [place] [address] D Unavailable Unavailable Unavailable OMRTEZA CANNON Unavailable [address] + [place] [address] NELLI, JANE/SILVRE Unavailable [address] + [place] [address] D Unavailable Unavailable Unavailable MORTEZA CANNON Unavailable [address] + [place] [address] RICKEYBAMELISSA, JANE/SILVER Unavailable [address] + [place] [address] D Unavailable Unavailable Unavailable MORTEZA CANNON Unavailable [address] + [place] [address] RICKEYBAUGH, JANE/SILVER Unavailable [address] + [place] [address] D Unavailable Unavailable Unavailable MORTEZA CANNON Unavailable [address] + [place] [address] BUTTERBAMELISSA, JANE/SILVER Unavailable [address] + [place] [address] D Unavailable Unavailable Unavailable DAVIS MORTEZA Unavailable [address] + [place] [address] BUTTERBAUGH, JANE/SILVER Unavailable [address] + [place] [address] D Unavailable Unavailable Unavailable DAVIS MORTEZA Unavailable [address] + [place] [address] BUTTERBAUGH, JANE/SILVER Unavailable [address] + [place] [address] D Unavailable Unavailable Unavailable DAVISMORTEZA Unavailable [address] + [place] [address] BUTTERBAUGH, JANE/SILVER Unavailable [address] + [place] [address] D Unavailable Unavailable Unavailable DAVISMORTEZA Unavailable [address] + [place] [address] BUTTERBAUGH, JANE/SILVER Unavailable [address] + [place] [address] D Unavailable Unavailable Unavailable DAVISMORTEZA Unavailable [address] + [place] [address] BUTTERBAUGH, JANE/SILVER Unavailable [address] + [place] [address] D Unavailable Unavailable Unavailable DAVISMORTEZA Unavailable [address] + [place] [address] BUTTERBAUGH, JANE/SILVER Unavailable [address] + [place] [address] D Unavailable Unavailable Unavailable MORTEZA CANNON Unavailable [address] + [place] [address] BUTTERBAUGH, JANE/SILVER Unavailable [address] + [place] [address] D Unavailable Unavailable Unavailable MORTEZA CANNON Unavailable [address] + [place] [address] NELLI, JANE/SILVER Unavailable [address] + [place] [address] D Unavailable Unavailable Unavailable MORTEZA CANNON Unavailable [address] + [place] [address] RICKEYBAMELISSA, JANE/SILVER Unavailable [address] + [place] [address] D Unavailable Unavailable Unavailable MORTEZA CANNON Unavailable [address] + [place] [address] NELLI, JANE/SILVER Unavailable [address] + [place] [address] D Unavailable Unavailable Unavailable MORTEZA CANNON Unavailable [address] + [place] [address] RICKEYBAMELISSA, JANE/SILVER Unavailable [address] + [place] [address] D Unavailable Unavailable Unavailable MORTEZA CANNON Unavailable [address] + [place] [address] RICKEYBAMELISSA, JANE/SILVER Unavailable [address] + [place] [address] D Unavailable Unavailable Unavailable MORTEZA CANNON Unavailable [address] + [place] [address] NELLI, JANE/SILVER Unavailable [address] + [place] [address] D Unavailable Unavailable Unavailable MORTEZA CANNON Unavailable [address] + [place] [address] RICKEYBAMELISSA, JANE/SILVER Unavailable [address] + [place] [address] D Unavailable Unavailable Unavailable MORTEZA CANNON Unavailable [address] + [place] [address] BUTTERBAUGH, JANE/SILVER Unavailable [address] + [place] [address] D Unavailable Unavailable Unavailable DAVISMORTEZA Unavailable [address] + [place] [address] NELLI, JANE/SILVER Unavailable [address] + [place] [address] D Unavailable Unavailable Unavailable DAVISMORTEZA Unavailable [address] + [place] [address] NELLI, JANE/SILVER Unavailable [address] + [place] [address] D Unavailable Unavailable Unavailable DAVIS, MORTEZA Unavailable [address] + [place] [address] NELLI, JANE/SILVER Unavailable [address] + [place] [address] D Unavailable Unavailable Unavailable DAVISMORTEZA Unavailable [address] + [place] [address] NELLI, JANE/SILVER Unavailable [address] + [place] [address] D Unavailable Unavailable Unavailable DAVIS, MORTEZA Unavailable [address] + [place] [address] NELLI, JANE/SILVER Unavailable [address] + [place] [address] D Unavailable Unavailable Unavailable DAVISMORTEZA Unavailable [address] + [place] [address] RICKEYJESSICAMELISSA JANE/SILVER Unavailable [address] + [place] [address] D Unavailable Unavailable Unavailable DAVISMORTEZA Unavailable [address] + [place] [address] RICKEYBAMELISSA, JANE/SILVER Unavailable [address] + [place] [address] D Unavailable Unavailable Unavailable DAVIS, MORTEZA Unavailable [address] + [place] [address] RICKEYBAMELISSA, JANE/SILVER Unavailable [address] + [place] [address] D Unavailable Unavailable Unavailable MORTEZA CANNON Unavailable [address] + [address] [place] [address] JANE AIKEN/SILVER Unavailable [address] [facility] [address] + [place] [address] D Unavailable Unavailable Unavailable MORTEZA CANNON Unavailable [address] + [address] [place] [address] Care Team Providers Name Role Phone SAPNA WYATT Admitting Unavailable SAPNA WYATT Attending Unavailable ADIEL GOMEZ Consulting Unavailable KEM ANDUJAR Attending Unavailable KEM ANDUJAR Referring Unavailable GONZÁLEZ, LISSETH S Referring Unavailable ANA BARILLAS Admitting Unavailable AUSTEN CHOUDHURY Attending Unavailable GONZÁLEZ, LISSETH S Referring Unavailable TUHY SWANSONETHI Referring Unavailable GONZÁLEZ, LISSETH S Referring Unavailable KEM ANDUJAR Attending Unavailable KEM ANDUJAR Referring Unavailable KEM ANDUJAR Attending Unavailable MAGDALENA PARMAR (CYTOTECHNOLOGIST SUPERVISOR) Referring Unavailable GONZÁLEZ, LISSETH S Referring Unavailable GONZÁLEZ, LISSETH S Referring Unavailable YAMIL CHAVES ([facility]) Referring Unavailable MAGDALENA PARMAR (CYTOTECHNOLOGIST SUPERVISOR) Referring Unavailable BRADSHAW, BIRD Lauren Admitting Unavailable JUSTO CADET Attending Unavailable GONZÁLEZ, LISSETH S Referring Unavailable GONZÁLEZ, LISSETH S Referring Unavailable ABRIL CHRISTINE Attending Unavailable ALEJANDRO MADDEN () Referring Unavailable GONZÁLEZ, LISSETH S Referring Unavailable GONZÁLEZ, LISSETH S Referring Unavailable BRADSHAW, BIRD M Referring Unavailable BRADSHAW, BIRD M Referring Unavailable MAGDALENA PARMAR ([facility]) Referring Unavailable KWESI MANRIQUEZ Admitting Unavailable ALEJANDRO MADDEN () Attending Unavailable GONZÁLEZ, LISSETH S Referring Unavailable MAGDALENA PARMAR (CYTOTECHNOLOGIST SUPERVISOR) Referring Unavailable MAGDALENA PARMAR ([facility]) Attending Unavailable MAGDALENA PARMAR ([facility]) Referring Unavailable GONZÁLEZ, LISSETH S Referring Unavailable PEYTON ROGERS Attending Unavailable ROS WAYNE Referring Unavailable KEM ANDUJAR Attending Unavailable HARRIET SAN Referring Unavailable ABRIL CHRISTINE Attending Unavailable GONZÁLEZ, LISSETH S Referring Unavailable SWANSON, ANDREW Referring Unavailable POLA MACIAS Referring Unavailable DAYSI BYNUM (CYTOTECHNOLOGIST SUPERVISOR) Referring Unavailable ABOUSSOUAN, LOUTFI S Referring Unavailable ABOUSSOUAN, LOUTFI S Referring Unavailable JOSE NAVA Admitting Unavailable ROS WAYNE Attending Unavailable GAEL VIEIRA Admitting Unavailable SCHEGAEL GUY Attending Unavailable ALAPPAN, NARENDRAKUMAR Admitting Unavailable BANDARZHOU Attending Unavailable GONZÁLEZ, LISSETH S Referring Unavailable GONZÁLEZ, LISSETH S Referring Unavailable ALAPPAN, NARENDRAKUMAR Admitting Unavailable PAULBRENDA CRYSTAL Attending Unavailable MARI NOVA (CY) Referring Unavailable ALAPPAN, NARENDRAKUMAR Admitting Unavailable BANDARZHOU Attending Unavailable GONZÁLEZ, LISSETH S Referring Unavailable GONZÁLEZ, LISSETH S Referring Unavailable ABOUSSOUAN, LOUTFI S Referring Unavailable ABOUSSOUAN, LOUTFI S Referring Unavailable ROS CHRISTIE Admitting Unavailable RANJAN MITCHELL Attending Unavailable GONZÁLEZ, LISSETH S Referring Unavailable TONELLI, AUSTEN R Admitting Unavailable ANDREAKINZAMA Attending Unavailable DOMINIQUE WRIGHT Attending Unavailable GONZÁLEZ, LISSETH S Referring Unavailable AKIHL HOWARD (CYTOTECHNOLOGIST SUPERVISOR) Attending Unavailable PARAMBIL, GUILLAUME Attending Unavailable PARAMBILGUILLAUME Referring Unavailable PARAMBIL, GUILLAUME Referring Unavailable PROCK, LISSETH A Admitting Unavailable IGNACIO NOVAK (RES) Attending Unavailable GONZÁLEZ, LISSETH S Referring Unavailable GONZÁLEZ, LISSETH S Referring Unavailable ETHAN, [place] Admitting Unavailable ETHAN, [place] Attending Unavailable GALDINO ZEE Attending Unavailable NEGRITO LUCERO (RES) Attending Unavailable GAEL SIMMONS Referring Unavailable GONZÁLEZ, LISSETH S Referring Unavailable TANYA, WILLARD Admitting Unavailable KYM FORD) Attending Unavailable GONZÁLEZ, LISSETH S Referring Unavailable ETHAN, [place] Admitting Unavailable KYM FORD) Attending Unavailable GONZÁLEZ, LISSETH S Referring Unavailable PEYTON ROGERS Attending Unavailable PEYTON ROGERS Referring Unavailable LINNETTE COLIN Attending Unavailable LINNETTE COLIN Referring Unavailable MIKEY DICKERSON Referring Unavailable ISHAAN BYRNE Attending Unavailable GONZÁLEZ, LISSETH S Referring Unavailable GONZÁLEZ, LISSETH S Referring Unavailable ALFRED, ALI Referring Unavailable ALAPPAN, NARENDRAKUMAR Admitting Unavailable TONELLI AUSTEN R Attending Unavailable DAYSI GARCÍA Referring Unavailable ATMAUTLUAK, KWESI K Referring Unavailable ATMAUTLUAK, KWESI K Referring Unavailable Ganta, Peyton Primary Care Unavailable Malaika Chinchilla Attending Unavailable Rodney-Jesse, Magdalena Attending Unavailable Rodney-Jesse, Magdalena Referring Unavailable Ganta, Peyton Primary Care Unavailable MARY CHIRINOS Attending Unavailable Ganta, Peyton Primary Care Unavailable MARY CHIRINOS Referring Unavailable Ganta, Peyton Primary Care Unavailable Rodney-Jesse, [place] Attending Unavailable Ganta, Peyton Primary Care Unavailable Rodney-Jesse, [place] Attending Unavailable Rodney-Jesse, [place] Referring Unavailable MARY CHIRINOS Attending Unavailable Ganta, Peyton Primary Care Unavailable MARY CHIRINOS Referring Unavailable Rodney-Jesse, [place] Attending Unavailable Rodney-Jesse, [place] Referring Unavailable Ganta, Peyton Primary Care Unavailable Ganta, Peyton Primary Care Unavailable Rodney-Jesse, [place] Attending Unavailable Rodney-Jesse, [place] Referring Unavailable Rodney-Jesse, [place] Attending Unavailable Rodney-Jesse, [place] Referring Unavailable Ganta, Peyton Primary Care Unavailable Ganta, Peyton Primary Care Unavailable Rodney-Jesse, [place] Attending Unavailable Rodney-Jesse, [place] Referring Unavailable Rodney-Jesse, [place] Attending Unavailable Rodney-Jesse, [place] Referring Unavailable Ganta, Peyton Primary Care Unavailable Rodney-Jesse, [place] Attending Unavailable Rodney-Jesse, [place] Referring Unavailable Ganta, Peyton Primary Care Unavailable Rodney-Jesse, [place] Attending Unavailable Rodney-Jesse, [place] Referring Unavailable Ganta, Peyton Primary Care Unavailable Rodney-Jesse, [place] Attending Unavailable Rodney-Jesse, [place] Referring Unavailable Ganta, Peyton Primary Care Unavailable Rodney-Jesse, [place] Attending Unavailable Rodney-Jesse, [place] Referring Unavailable Ganta, Peyton Primary Care Unavailable Ganta, Peyton Primary Care Unavailable Lydia Harley Attending Unavailable Rodney-Jesse, [place] Attending Unavailable Rodney-Jesse, [place] Referring Unavailable Ganta, Peyton Primary Care Unavailable Ganta, Peyton Primary Care Unavailable Lydia Harley Attending Unavailable Mitch Buchanan Attending Unavailable Cricket Lydia Referring Unavailable Ganta, Peyton Referring Unavailable Ganta, Peyton Primary Care Unavailable Rodney-Jesse, Magdalena Attending Unavailable Rodney-Jesse, [place] Attending Unavailable Rodney-Jesse, [place] Referring Unavailable Ganta, Peyton Primary Care Unavailable Rodney-Jesse, [place] Attending Unavailable Rodney-Jesse, [place] Referring Unavailable Ganta, Peyton Primary Care Unavailable Rodney-Jesse, [place] Attending Unavailable Rodney-Jesse, [place] Referring Unavailable Ganta, Peyton Primary Care Unavailable Rodney-Jesse, [place] Attending Unavailable Rodney-Jesse, [place] Referring Unavailable Ganta, Peyton Primary Care Unavailable Rodney-Jesse, [place] Attending Unavailable Rodney-Jesse, [place] Attending Unavailable Rodney-Jesse, [place] Referring Unavailable Ganta, Peyton Primary Care Unavailable Rodney-Jesse, [place] Attending Unavailable Rodney-Jesse, [place] Referring Unavailable Ganta, Peyton Primary Care Unavailable Rodney-Jesse, [place] Attending Unavailable Ganta, Peyton Referring Unavailable Ganta, Peyton Primary Care Unavailable Rodney-Jesse, [place] Attending Unavailable Rodney-Jesse, [place] Referring Unavailable Ganta, Peyton Primary Care Unavailable Rodney-Jesse, [place] Attending Unavailable Ganta, Peyton Referring Unavailable Ganta, Peyton Primary Care Unavailable Rodney-Jesse, [place] Attending Unavailable Ganta, Peyton Primary Care Unavailable Rodney-Jesse, [place] Attending Unavailable Rodney-Jesse, [place] Referring Unavailable Ganta, Peyton Primary Care Unavailable Rodney-Jesse, [place] Attending Unavailable Rodney-Jesse, [place] Referring Unavailable Ganta, Peyton Primary Care Unavailable Rodney-Jesse, [place] Attending Unavailable Rodney-Jesse, [place] Referring Unavailable Ganta, Peyton Primary Care Unavailable Rodney-Jesse, [place] Attending Unavailable Rodney-Jesse, [place] Referring Unavailable Ganta, Peyton Primary Care Unavailable Rodney-Jesse, [place] Attending Unavailable Rodney-Jesse, [place] Referring Unavailable Ganta, Peyton Primary Care Unavailable Ganta, Peyton Primary Care Unavailable WILFRED LUCAS Attending Unavailable Rodney-Jesse, [place] Attending Unavailable Rodney-Jesse, [place] Referring Unavailable Ganta, Peyton Primary Care Unavailable Rodney-Jesse, [place] Attending Unavailable Rodney-Jesse, [place] Referring Unavailable Ganta, Peyton Primary Care Unavailable Rodney-Jesse, [place] Attending Unavailable Rodney-Jesse, [place] Referring Unavailable Ganta, Peyton Primary Care Unavailable Ros Nam Attending Unavailable WILFRED LUCAS Referring Unavailable Rodney-Jesse, [place] Attending Unavailable Ganta, Peyton Primary Care Unavailable Ganta, Peyton Primary Care Unavailable Fany Littlejohn Attending Unavailable Rodney-Jesse, [place] Attending Unavailable Rodney-Jesse, [place] Referring Unavailable Ganta, Peyton Primary Care Unavailable Ganta, Peyton Primary Care Unavailable WILFRED LUCAS Attending Unavailable Rodney-Jesse, [place] Attending Unavailable Rodney-Jesse, [place] Referring Unavailable Ganta, Peyton Primary Care Unavailable [place]ena Lewis Attending Unavailable [place] Lewis Referring Unavailable Peyton Rogers Primary Care Unavailable PROBLEMS PROBLEMS DATE TYPE CONDITION / CODE ATTENDING STATUS SOURCE 06/22/2018 Active 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 unspecified Clinic Main part of left lower [place] leg with fat layer Repository exposed / L97.922(ICD-10) 06/14/2018 Active Pain in right leg / SARAHI ZEEELLE Active [facility] M79.604(ICD-10) A Clinic Main [place] Repository 06/06/2018 Active Hemoperitoneum / LILIANAKYM Active [facility] K66.1(ICD-10) () Clinic Main [place] Repository 06/06/2018 Active Other disorders of LILIANA, KYM Active [facility] calcium metabolism / () Clinic Main E83.59(ICD-10) [place] Repository 06/06/2018 Active Obesity, unspecified LILIANA, KYM Active [facility] / E66.9(ICD-10) () Clinic Main [place] Repository 06/05/2018 Active Unspecified abdominal LILIANA, KYM Active [facility] pain / R10.9(ICD-10) () Clinic Main [place] Repository 05/14/2018 Active Other disturbances of LILIANA, KYM Active [facility] skin sensation / () Clinic Main R20.8(ICD-10) [place] Repository 04/28/2018 Active Nausea with vomiting, JANAMANCHI, Active [facility] unspecified / VARALAKSHMI Clinic Main R11.2(ICD-10) [place] Repository 05/23/2018 Unknown M79.606 - Pain in WILFRED LUCAS Active [facility] leg, unspecified / [facility] M79.606(ICD-10) Hospital Repository 05/21/2018 Unknown M79.662 - Pain in Ros Nam Active [facility] left lower leg / [facility] M79.662(ICD-10) Hospital Repository 06/29/2018 Unknown 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) / Repository D75.82(ICD-10) 04/03/2018 Active Unspecified open ALEJANDRO MADDEN Active [facility] wound of abdominal () Clinic Main wall, unspecified [place] quadrant without Repository penetration into peritoneal cavity, sequela / S31.109S(ICD-10) 04/03/2018 Active Mild protein-calorie ALEJANDRO MADDEN Active Yg malnutrition / () Clinic Main E44.1(ICD-10) [place] Repository 04/02/2018 Active Antiphospholipid ALEJANDRO MADDEN Active Yg syndrome / () Clinic Main D68.61(ICD-10) [place] Repository 03/25/2018 Active 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) ALEJANDRO MADDEN Active [facility] use of anticoagulants () Clinic Main / Z79.01(ICD-10) [place] Repository 03/25/2018 Active Encounter for ALEJANDRO MADDEN Active [facility] therapeutic drug () Clinic Main level monitoring / [place] Z51.81(ICD-10) Repository 03/15/2018 Active Chronic kidney ALEJANDRO MADDEN Active Yg disease, stage 3 () Clinic Main (moderate) / [place] N18.3(ICD-10) Repository 03/15/2018 Active Other primary ALEJANDRO MADDEN Active Yg thrombophilia / () Clinic Main D68.59(ICD-10) [place] Repository 03/15/2018 Active Acute embolism and ALEJANDRO MADDEN Active Yg thrombosis of () Clinic Main inferior vena cava / [place] I82.220(ICD-10) Repository 03/15/2018 Active Peripheral vascular ALEJANDRO MADDEN Active Yg disease, unspecified () Clinic Main / I73.9(ICD-10) [place] Repository 03/11/2018 Active Unspecified ALEJANDRO MADDEN Active [facility] protein-calorie () Clinic Main malnutrition / [place] E46(ICD-10) Repository 03/11/2018 Active Personal history of ALEJANDRO MADDEN Active Yg other venous () Clinic Main thrombosis and [place] embolism / Repository Z86.718(ICD-10) 03/11/2018 Active Unspecified ALEJANDRO MADDEN Active [facility] infectious disease / () Clinic Main B99.9(ICD-10) [place] Repository 03/11/2018 Active Cellulitis of other ALEJANDRO MADDEN Active [facility] sites / () Clinic Main L03.818(ICD-10) [place] Repository 03/11/2018 Active Morbid (severe) ALEJANDRO MADDEN Active Yg obesity due to excess () Clinic Main calories / [place] E66.01(ICD-10) Repository 03/10/2018 Active 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 () Clinic 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) / [place] D75.82(ICD-10) Repository 02/18/2018 Active Pain in left leg / ALEJANDRO MADDEN Active [facility] M79.605(ICD-10) (MD) Clinic Main [place] Repository 01/22/2018 Active Pain in leg, ALEJANDRO MADDEN Active [facility] unspecified / (MD) Clinic Main M79.606(ICD-10) [place] Repository 01/22/2018 Active Polyneuropathy in ALEJANDRO MADDEN Active [facility] diseases classified (MD) Clinic Main elsewhere / [place] G63(ICD-10) Repository 01/22/2018 Active Chronic kidney ALEJANDRO MADDEN Active [facility] disease, stage 4 (MD) Clinic Main (severe) / [place] N18.4(ICD-10) Repository 01/22/2018 Active Other ALEJANDRO MADDEN Active [facility] cardiomyopathies / (MD) Clinic Main I42.8(ICD-10) [place] Repository 01/22/2018 Active Acute kidney failure ALEJANDRO MADDEN Active [facility] with tubular necrosis () Clinic Main / N17.0(ICD-10) [place] Repository 01/22/2018 Active Transfusion ALEJANDRO MADDEN Active [facility] associated () Clinic Main circulatory overload [place] / E87.71(ICD-10) Repository 01/22/2018 Active Sepsis, unspecified ALEJANDRO MADDEN Active [facility] organism / () Clinic Main A41.9(ICD-10) [place] Repository 01/22/2018 Active Severe sepsis with ALEJANDRO MADDEN Active [facility] septic shock / (MD) Clinic Main R65.21(ICD-10) [place] Repository 01/22/2018 Active Shock, unspecified / ALEJANDRO MADDEN Active [facility] R57.9(ICD-10) () Clinic Main [place] Repository 01/22/2018 Active Cellulitis of left ALEJANDRO MADDEN Active [facility] lower limb / () Clinic Main L03.116(ICD-10) [place] Repository 01/22/2018 Active Hypo-osmolality and ALEJANDRO MADDEN Active [facility] hyponatremia / () Clinic Main E87.1(ICD-10) [place] Repository 01/22/2018 Active Other disorders of ALEJANDRO MADDEN Active [facility] phosphorus metabolism () [facility] / E83.39(ICD-10) [place] [facility] 01/22/2018 Active Cutaneous abscess of ALEJANDRO MADDEN Active [facility] left lower limb / () [facility] L02.416(ICD-10) [place] [facility] 01/22/2018 Active Chronic systolic ALEJANDRO MADDEN Active [facility] (congestive) heart () [facility] failure / [place] I50.22(ICD-10) Repository 01/22/2018 Active Disorder of NA Active [facility] pigmentation, [facility] unspecified / [place] L81.9(ICD-10) Repository 01/22/2018 Active Anesthesia of skin / NA Active [facility] R20.0(ICD-10) [facility] [place] [facility] 01/22/2018 Active Paresthesia of skin / NA Active [facility] R20.2(ICD-10) [facility] [place] [facility] 01/12/2018 Unknown Z79.01 - senior living Debbie, Active [facility] (current) use of [facility] anticoagulants / Hospital Z79.01(ICD-10) Repository 01/05/2018 Unknown D68.61 - Debbie, Active [facility] Antiphospholipid [facility] syndrome / Hospital D68.61(ICD-10) Repository 12/15/2017 Active Unspecified ROS WAYNE Active [facility] atherosclerosis of [facility] Main navajo arteries of [place] extremities, Repository unspecified extremity / I70.209(ICD-10) 12/15/2017 Active Abnormal coagulation ROS WAYNE Active [facility] profile / [facility] R79.1(ICD-10) [place] [facility] 12/15/2017 Active Personal history of ROS WAYNE Active [facility] diseases of the blood [facility] and blood-forming [place] organs and certain Repository disorders involving the immune mechanism / Z86.2(ICD-10) 12/15/2017 Active Shortness of breath / ROS WAYNE Active [facility] R06.02(ICD-10) [facility] [place] [facility] 12/01/2017 Active Left lower quadrant ROS WAYNE Active [facility] pain / R10.32(ICD-10) Clinic [facility] [place] [facility] 12/04/2017 Active Pneumonia, ROS WAYNE Active [facility] unspecified organism [facility] / J18.9(ICD-10) [place] [facility] 12/04/2017 Active Secondary ROS WAYNE Active [facility] hypertension, [facility] unspecified / [place] I15.9(ICD-10) Repository 12/04/2017 Active Lymphedema, not ROS WAYNE Active [facility] elsewhere classified [facility] / I89.0(ICD-10) [place] [facility] 12/04/2017 Active Other malaise / ROS WAYNE Active [facility] R53.81(ICD-10) [facility] [place] [facility] 12/04/2017 Active Other reduced ROS WAYNE Active [facility] mobility / [facility] Z74.09(ICD-10) [place] [facility] 12/04/2017 Active Pneumonia due to BIANKAROS VAZQUEZ Active [facility] methicillin [facility] susceptible [place] Staphylococcus aureus Repository / J15.211(ICD-10) 12/04/2017 Active Pneumonia due to BIANKAROS VAZQUEZ Active [facility] hemophilus influenzae [facility] / J14(ICD-10) [place] [facility] 12/04/2017 Active Personal history of ROS WAYNE Active [facility] other infectious and [facility] parasitic diseases / [place] Z86.19(ICD-10) Repository 12/04/2017 Active Thrombocytopenia, ROS WAYNE Active [facility] unspecified / [facility] D69.6(ICD-10) [place] [facility] 12/01/2017 Active Other symptoms and BANDARZHOU signs involving the [facility] musculoskeletal [place] system / Repository R29.898(ICD-10) 12/01/2017 Active Pneumonia due to BANDARZHOU Francisco other gram-negative [facility] bacteria / [place] J15.6(ICD-10) Repository 12/01/2017 Active Hemoptysis / BANDARZHOU R04.2(ICD-10) Clinic [facility] [place] [facility] 12/01/2017 Active Acute kidney failure, BANDAR, HZOU [facility] unspecified / [facility] N17.9(ICD-10) [place] [facility] 10/25/2017 Active Dependence on renal BANDAR, ZHOU [facility] dialysis / [facility] Z99.2(ICD-10) [place] [facility] 10/25/2017 Active Renovascular BANDAR, ZHOU [facility] hypertension / [facility] I15.0(ICD-10) [place] [facility] 10/25/2017 Active Generalized edema / BANDARZHOU R60.1(ICD-10) [facility] [place] [facility] 10/25/2017 Active Unsteadiness on feet BANDARZHOU / R26.81(ICD-10) [facility] [place] [facility] 10/25/2017 Active Other specified BANDARZHOU Francisco Active [facility] disorders of muscle / [facility] M62.89(ICD-10) [place] [facility] 10/25/2017 Active Low back pain / BANDARZHOU Francisco Active [facility] M54.5(ICD-10) [facility] [place] [facility] 10/23/2017 Active Hemorrhage, not SAPNA WYATT Active [facility] elsewhere classified Clinic Other / R58(ICD-10) [place] [facility] 10/23/2017 Active Acute posthemorrhagic SAPNA WYATT Active [facility] anemia / D62(ICD-10) Clinic Other [place] [facility] 10/23/2017 Active Acute embolism and SAPNA WYATT Active [facility] thrombosis of Clinic Other unspecified deep [place] veins of unspecified Repository lower extremity / I82.409(ICD-10) 10/23/2017 Active Unspecified diastolic SAPNA WYATT Active [facility] (congestive) heart Clinic Other failure / [place] I50.30(ICD-10) Repository 10/23/2017 Active Acute respiratory EDMUNDOSAPNA GEORGE Active [facility] failure with hypoxia Clinic Other / J96.01(ICD-10) [place] [facility] 10/23/2017 Active Essential (primary) SAPNA WYATT Active [facility] hypertension / Clinic Other I10(ICD-10) [place] [facility] 10/23/2017 Active Mononeuropathy, SAPNA WYATT Active [facility] unspecified / Clinic Other G58.9(ICD-10) [place] [facility] 10/22/2017 Active Embolism and RANJAN MITCHELL Active [facility]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 vein / I82.3(ICD-10) [place] [facility] 10/22/2017 Active Hemorrhage from other JANICE MITCHELLIT Active [facility] sites in respiratory [facility] passages / [place] R04.89(ICD-10) Repository 10/13/2017 Active Other chest pain / MITCHELLRANJAN Active [facility] R07.89(ICD-10) [facility] [place] [facility] 10/13/2017 Active Polyneuropathy, MITCHELLRANJAN Active [facility] unspecified / [facility] G62.9(ICD-10) [place] [facility] 10/13/2017 Active Foot drop, left foot RANJAN MITCHELL Active [facility] / M21.372(ICD-10) [facility] [place] [facility] 10/24/2017 Unknown R04.89 - Hemorrhage Dewayne, Mitch Active [facility] from other sites in Community respiratory passages Hospital / R04.89(ICD-10) Repository 10/24/2017 Unknown J80 - Acute DewayneMitch neumann Active [facility] respiratory distress [facility] syndrome / Hospital J80(ICD-10) Repository 10/24/2017 Unknown N17.9 - Acute kidney DewayneMitch neumann Active [facility] failure, unspecified Community / N17.9(ICD-10) Hospital Repository 10/24/2017 Unknown D64.9 - Anemia, DewayneMitch neumann Active [facility] unspecified / Community D64.9(ICD-10) Hospital Repository 10/24/2017 Unknown D69.6 - DewayneMitch neumann Active [facility] Thrombocytopenia, Community unspecified / Hospital D69.6(ICD-10) Repository 10/24/2017 Unknown Z86.718 - Personal DewayneMitch neumann Active [facility] history of other Community venous thrombosis and Hospital embolism / Repository Z86.718(ICD-10) 10/24/2017 Unknown I10 - Essential DewayneMitch neumann Active [facility] (primary) Community hypertension / Hospital I10(ICD-10) Repository 10/24/2017 Unknown E66.01 - Morbid DewayneMitch neumann Active [facility] (severe) obesity due Community to excess calories / Hospital E66.01(ICD-10) Repository 10/24/2017 Unknown J30.9 - Allergic DewayneMitch neumann Active [facility] rhinitis, unspecified Community / J30.9(ICD-10) Hospital Repository 10/24/2017 Unknown K21.9 - DewayneMitch neumann Active [facility] Gastro-esophageal [facility] reflux disease Hospital without esophagitis / Repository K21.9(ICD-10) 10/05/2017 Active Dysuria / ANDREA, AMEENA Active [facility] R30.0(ICD-10) Clinic Main [place] [facility] 08/28/2017 Active Systemic inflammatory ANDREA, AMEENA Active [facility] response syndrome [facility] (sirs) of [place] non-infectious origin Repository without acute organ dysfunction / R65.10(ICD-10) 03/12/2017 Active Pulmonary ANDREA, AMEENA Active [facility] hypertension, Clinic [facility] unspecified / [place] I27.20(ICD-10) Repository 03/12/2017 Active Acute and chronic ANDREA, AMEENA Active [facility] respiratory failure Clinic [facility] with hypoxia / [place] J96.21(ICD-10) Repository 09/29/2017 Active Hypoxemia / ANDREA, AMEENA Active [facility] R09.02(ICD-10) Clinic Main [place] [facility] 08/29/2017 Active Bacteremia / SCARLETIGNACIO Active Abss R78.81(ICD-10) (RES) Clinic Main [place] [facility] 08/28/2017 Active Generalized skin SCARLETIGNACIO Active [facility] eruption due to drugs (RES) [facility] and medicaments taken [place] internally / Repository L27.0(ICD-10) 08/28/2017 Active Sepsis due to SCARLETIGNACIO RAMIREZ Active [facility] Enterococcus / (RES) Clinic [facility] A41.81(ICD-10) [place] [facility] 08/27/2017 Active Unspecified severe SCARLETIGNACIO Active [facility] protein-calorie (RES) Clinic [facility] malnutrition / [place] E43(ICD-10) Repository 08/25/2017 Active Other pancytopenia / SCARLETIGNACIO Active [facility] D61.818(ICD-10) (RES) Clinic [facility] [place] [facility] 08/25/2017 Active Fever, unspecified / SCARLETIGNACIO RAMIREZ Active [facility] R50.9(ICD-10) (RES) Clinic Main [place] [facility] 08/25/2017 Active Enterocolitis due to IGNACIO NOVAK Active [facility] Clostridium (RES) Clinic [facility] difficile, recurrent [place] / A04.71(ICD-10) Repository 08/25/2017 Active Unspecified SCARLETIGNACIO RAMIREZ Active [facility] streptococcus as the (RES) Clinic [facility] cause of diseases [place] classified elsewhere Repository / B95.5(ICD-10) 08/25/2017 Active Enterocolitis due to SCARLETIGNACIO RAMIREZ Active [facility] Clostridium (RES) Clinic Main difficile, not [place] specified as Repository recurrent / A04.72(ICD-10) 08/25/2017 Active Fever presenting with IGNACIO NOVAK Active [facility] conditions classified (RES) Clinic Main elsewhere / [place] R50.81(ICD-10) Repository 08/25/2017 Active Other specified SCARLETIGNACIO RAMIREZ Active [facility] health status / (RES) Clinic [facility] Z78.9(ICD-10) [place] [facility] 08/21/2017 Active Unknown / NA Active [facility] UNK(Unknown) Clinic Main [place] Rep[facility] PROCEDURES PROCEDURES No Procedure Records FoundRESULTS RESULTS PROTIME Collected: 08/01/2018 Status: F Source: [place] 4:30 AM [facility] REPOSITORY TYPE CODE TESTS RESULT OUT OF RANGE REFERENCE UNITS LAB PSEC 9.7-13.0 sec High PT Sec 24.8 LAB INR 0.9-1.3 High PT INR 2.5 Result Comment: Vitamin K Antagonist (VKA) Therapeutic Range: INR 2 to 3 (Target INR of 2.5) Note: For patients treated with VKA drugs, such as warfarin, the [employer] 2012 Guideline recommends [...] Chest 2012, 141:7S-47S Diogenes RA, et al. [facility] 2017, 70: 252-289 Performed By: #### PT #### [facility] [address] [id number] NUTRITION Observed: 07/31/2018 Status: COMPLETED Source: [place] 2:29 PM [facility] REPOSITORY O ID: [id number] Author: Anahi Mai (Diet-T) Service: Nutrition Therapy Author Type: Protective Signal Installer Helper Type: Nutrition Filed: 07/31/2018 2:31 PM Note Text: NUTRITION THERAPY FOLLOW-UP NOTE SERVICE DATE: 07/31/2018 SERVICE TIME: 1010 Anthropometrics: Height: 160 cm (5' 3) Current Weight: Weight: 112.6 kg (248 lb 3.8 oz) Body mass index is 43.97 kg/m?. Loss of lean body mass/visual muscle wasting: no Admitting Diagnosis: Calciphylaxis of left lower extremity with nonhealing ulcer with fat layer exposed (HCC) [E83.59, L97.922] Present Diet Order: Regular and Fluid restriction of 1400ml/day Is the patient having any pain that [...] 75 - 100% Patient concerns/Issues: The patient was sleeping and was unable to awaken. Good intakes per Epic. Reordered vouchers for this week. Will monitor for issues or concerns. Nursing Admission Assessment Malnutrition Score Tool: 1 Plan of Care: Recommendation No problems noted at this time. Will screen again within 7 days Discharge Plan: Regular MNT Billing Type: Routine Care/15 min 1 unit SIGNATURE: MELVINA Ellison PATIENT NAME: Paloma Cannon DATE: July 31, 2018 TIME: 2:29 PM PAGER: [phone] PROGRESS Observed: 07/31/2018 Status: COMPLETED Source: [place] 1:58 PM CLINIC MAIN [place] REPOSITORY HNO ID: [id number] Author: Mckinley Kearns Service: General Internal Medicine Author Type: Physician Type: Progress Notes Filed: 07/31/2018 2:17 PM Note Text: Medicine [place] - Vipul Terry Progress Note PATIENT NAME: Paloma Cannon LENGTH OF STAY: 38 HOSPITAL ROOM: [address]; AGE: 7 1990; 28 year old ADMITTING PHYSICIAN: Mckinley Kearns DATE OF ADMISSION: 06/22/2018 11:07 PM SERVICE - Vipul Terry Brief Plan for Today -Warfarin 4mg, continue to mornitor INR. -continue sodium thiosulfate (T--Sa) + pamidronate (qwk Monday)?for calciphylaxis -PLEX q2wk for APLS, next session 08/06 -continue APAP and duloxetine, uptitrating pregabalin (currently 150mg at 0900 and 1400 and 200mg qhs for pain control. -carvedilol, losartan, nifedipine, torsemide PRN -pending insurance coverage for pamidronate -vitamin d3 1000 IU daily -oral B12 1000mcg daily for 30 days -Ferric gluconate 125mg for 2 doses -dental outpt f/u -continue healing services -Pain management consulted Interval Events -No acute events overnight. Afebrile and HDS on 2L NC -Patient continues to have 8-9/10 pain in left leg. -INR 2.5 this am Medications/Allergies Medications Current Facility-Administered Medications: acetaminophen 1,000 mg tab(s) (TYLENOL) 1,000 mg ORAL TID ferric gluconate 125 mg in NaCl 0.9% 100 mL (FERRLECIT) 125 mg INTRAVENOUS DAILY AT 6 PM [START ON 08/01/2018] ferrous sulfate 325 mg tab(s) 325 mg ORAL DAILY cyanocobalamin 1,000 mcg tab(s) (VITAMIN B-12) 1,000 mcg ORAL DAILY pregabalin 150 mg cap(s) (LYRICA) 150 mg ORAL DAILY pregabalin 150 mg cap(s) (LYRICA) 150 mg ORAL DAILY pregabalin (LYRICA) cap(s) 200 mg 200 mg ORAL AT BEDTIME lidocaine 5 % ointment (XYLOCAINE) TOPICAL TID PRN DULoxetine (CYMBALTA) cap(s) 90 mg 90 mg ORAL DAILY warfarin 4 mg tab(s) (COUMADIN) 4 mg ORAL DAILY - WARFARIN cholecalciferol 1,000 Units tab(s) (VITAMIN D3) 1,000 Units ORAL DAILY calcium gluconate 300 mg injection 300 mg INTRAVENOUS APHERESIS PRN Or calcium carbonate 1,000 mg chewable tab(s) (TUMS) 1,000 mg ORAL APHERESIS PRN calcium gluconate 300 mg injection 300 mg INTRAVENOUS APHERESIS PRN Or calcium carbonate 1,000 mg chewable tab(s) (TUMS) 1,000 mg ORAL APHERESIS PRN diphenhydrAMINE 50 mg injection (BENADRYL) 50 mg INTRAVENOUS APHERESIS PRN hydrocortisone sodium succinate (PF) 200 mg injection (Solu- CORTEF) 200 mg INTRAVENOUS APHERESIS PRN sodium citrate 4% 3-6 mL catheter lock 3-6 mL INTRALUMINAL APHERESIS PRN miconazole 2 % 1 application topical powder (LOTRIMIN AF, DESENEX) 1 application TOPICAL BID pamidronate 30 mg in NaCl 0.9% 1,000 mL (AREDIA) 30 mg INTRAVENOUS q 1 WEEK losartan 25 mg tab(s) (COZAAR) 25 mg ORAL DAILY meperidine (PF) 25 mg injection (DEMEROL) 25 mg INTRAVENOUS q 6 H PRN sodium citrate 4% 3-6 mL catheter lock 3-6 mL INTRALUMINAL APHERESIS PRN sodium hypochlorite topical irrigation 0.25% (DAKINS HALF-STRENGTH) IRRIGATION DAILY NaCl 0.9% 10 mL 10 mL INTRAVENOUS q 12 H NaCl 0.9% 20 mL 20 mL INTRAVENOUS PRN carvedilol 12.5 mg tab(s) (COREG) 12.5 mg ORAL BID w MEALS cetirizine 10 mg tab(s) (ZyrTEC) 10 mg ORAL BID NIFEdipine ER 60 mg tab(S) (PROCARDIA XL) 60 mg ORAL DAILY pantoprazole DR 40 mg tab(s) (PROTONIX) 40 mg ORAL DAILY (6 AM) warfarin order for discharge OTHER PRN sodium thiosulfate 25 g in D5W 250 mL 25 g INTRAVENOUS q - 1800 hydrocortisone sodium succinate (PF) 100 mg injection (Solu- CORTEF) 100 mg INTRAVENOUS q 6 H PRN diphenhydrAMINE 50 mg (BENADRYL) 50 mg ORAL q 6 H PRN Allergies Rhubarb; Chlorhexidine; Heparin; Iv Contrast [Iodine]; Rituximab Physical Exam BP 134/67 Pulse 83 Temp 36.8 ?C (98.2 ?F) (Oral) Resp 18 Ht 160 cm (5' 3) Wt 112.6 kg (248 lb 3.8 oz) SpO2 97% BMI 43.97 kg/m? General: No acute distress. AANDOx3. HEENT: PERRLA. EOMI. Neck: No JVD. No LAD. CV: Regular rate and rhythm. No murmurs or rubs auscultated. Resp: CTA b/l. No wheezing or crackles. Abdomen: Soft, nontender, nondistended abdomen. BSx4. Extremities: No pedal edema b/l. Left medial thigh wound and left lateral ankle wound with bandage clean/dry/intact Neuro: CN II-XII Grossly Intact. No gross motor or sensory deficits Psych: Appropriate mood and affect Data I/O: Intake/Output Summary (Last 24 hours) at 07/31/18 1358 Last data filed at 07/31/18 1003 Gross per 24 hour Intake 620 ml Output 0 ml Net 620 ml Labs: CBC, Coags, BMP, Mg, Phos Recent Labs 07/31/18 0430 07/30/18 0430 07/29/18 0620 WBC -- -- 4.39 HB -- -- 8.9* HCT -- -- 27.5* PLT -- -- 150 INR 2.5* 2.5* 2.7* NA -- -- 144 K -- -- 4.2 CHLOR -- -- 107* CO2 -- -- 23 BUN -- -- 16 CREAT -- -- 0.95 GLUC -- -- 90 CA -- -- 9.0 Liver Function, Amylase, AND Lipase Recent Labs 07/30/18 0430 TPROT 6.0* ALB 3.6* ALT 8 AST 19 ALKPHOS 84 TBILI 0.3 Imaging: No new imaging. Patient Assessment and Plan Not Finalized Until Discussed with Attending Dr.Moises Kearns Assessment and Plan 28 yo F who presented with calciphylaxis related left leg pain on 06/22/19. ? 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 Seizure - on keppra 250mg TID ? # Calciphylaxis -06/26/18 left leg skin biopsy: effaced epidermis, underlying dermis is fibrotic with vertically oriented blood vessels consistent with scar. Within the subcutis, there is extensive calcium deposition within the fat lobules and in the valente of small vessels within the subcutis. Additionally, there is stippled extracellular calcium. Findings compatible with the clinical impression of Calciphylaxis. -Home meds: pamidronate qwk, sodium thiosulfate 12.5 g 3x/wk -Unable to get sodium thiosulfate as an outpatient -Worsening pain Plan -Sodium thiosulfate ?- 25g in 250ml D5W infused over 1 hour ?- Monitor Vital signs during infusion given (low) risk of hypotension ?- BMP once per week to check for anion gap metabolic acidosis ?PRN during infusion:?- Acetaminophen 650mg PRN as needed for headache (will premedicate with acetaminophen if headaches are frequent) ?- Diphenhydramine 50 mg IV PRN hypotension, shortness of breath or bronchospasm ?- Meperidine 25 mg Injection PRN for rigors ?- Stop infusion if either hypotension or rigors occur. Solu-cortef 100mg IV and normal saline as needed for hypotension ?- Ondansetron 8 mg IV PRN Nausea/Vomiting (will premedicate with ondansetron if nausea/vomiting frequent) -IV pamidronate 30 mg q Monday -Wound care per dermatology: washing with saline wound wash, packing with daikin soaked gauze, gauze and tape ? 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 Has received stenting of IVC and iliacs along with endograft of IVC. - C/B extensive RP bleed s/p L2, L3 embolization. 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 - APS causing hepatic vein thrombosis, caval/ileo/femoral DVT (09/2013) s/p L common/external vein stent placement, IVC thrombectomy, placement of endoglix AFX endograft at inferior vena cava bifurcation and bilateral SFA to saphenous vein fistulas - past surgeries: per notes: 09/18/2013 - IVC thrombectomy; 09/25/2013 - left and right common iliac/external iliac bein stending, Endoglix AFX endograft at the IVC bifurcation placed; 09/26/13 -09/29/13- left and right proximal superficial artery to first branch of greater saphenous vein AV fistula; 10/01/13- femoropopliteal endovascular thrombectomies; 02/02/18: ?ligation of LLE SFA to GSV fistula; 02/12/18: left groin debridement -Home meds: Typically takes 5 mg warfarin daily, except 7.5 mg on the day of PLEX and 1-2 days following Plan -warfarin titration; 07/27 Discussed warfarin with vascular medicine. Patient has triple positive APLS. Previous history of HIT eliminates option of lovenox for treatment. Only option is warfarin. Detailed explanation in 05/15/2018 consultation note: at the time of her calciphylaxis diagnosis in February, team covering Mrs. Cannon discussed w/Drs. Andujar and Guillaume (outpatient hematology and ) given her complicated hx w/APS, frequent CAPRICE anytime she is ill and remote hx of HIT, warfarin was still thought to be the best AC option for her. ? - APAP 650mg PO 4x/day PRN - Cymbalta to 90mg PO qAM - Up titrating Lyrica 150 mg at 900 and 1400 and 200 mg qhs (day 2 of 3) ? #HFrEF #HTN -03/14/18 ILEANA: EF 45%, LV mildly dilated, LA cavity is dilated, 2+ TR, 2-3+ AR, mobile echodensities originating in the SVC extending into the right atrium most consistent with a moderate to large burden or residual thrombus from a prior central venous catheter. No evidence of endocarditis. -05/06 renal venous US showed occlusive thrombus througout the IVC. Minimal venous flow in the kidney -Home meds: losartan 12.5mg daily, nifedipine 60mg daily, torsemide 20mg q8h PRN, carvedilol 12.5mg BID Plan -Continue home nifedipine, carvedilol, losartan ? #Vitamin D deficiency -vitamin d 25-hydroxy = 12.5 Plan -vitamin d3 1000 IU daily ? #Anemia -Iron studies consistent with anemia of chronic disease. B12 may also be moderately low. Plan -oral B12 1000mcg daily for 30 days (started 07/30) -Ferric gluconate 125mg for 2 doses (final dose 08/01) ? Chronic conditions #Hx seasonal allergies / Hives - Continue home certirizine, Diphenhydramine prn #GERD - Continue home pantoprazole ? # Diet: regular # Dispo:?pending insurance approval of Na thiosulfate and/or pamidronate Lines, Drains, and Airways Line Central Line Single Lumen Tunneled Left Chest -- days Dialysis / Apheresis Double Lumen 03/17/18 1000 Admission to Hospital Tunneled Left Chest 136 days CODE STATUS: Full code SIGNATURE: Tony Puentes MD PATIENT NAME: Paloma Cannon DATE: July 31, 2018 TIME: 1:58 PM PAGER/CONTACT #: [phone] [facility] STAFF PHYSICIAN NOTE OF PERSONAL INVOLVEMENT IN CARE Chart reviewed, patient examined, and fernandes elements of progress note of the patient confirmed and agree with the documented findings and plan of care. Need to start arranging disposition. Unfortunate case that the insurance is not approving STS, which seems to be controlling the pain and calciphylaxis. Mckinley Kearns MD FAAP FACP [facility] Internal Medicine-Pediatrics [facility] Medicine/IMPACT Pager: [phone] Date of Service: July 31, 2018 Time of Service: 2:16 PM CONSULT PROG Observed: 07/31/2018 Status: COMPLETED Source: [place] 9:18 AM [facility] REPOSITORY HNO ID: [id number] Author: Ros Balderas Service: Pain Management Author Type: Physician Type: Consult Progress Note Filed: 07/31/2018 7:43 PM Note Text: CONSULT PROGRESS NOTES-Pain Management Patient Name: Paloma Cannon SERVICE DATE: July 31, 2018 SERVICE TIME: 11:00 AM CONSULTING SERVICE: Pain Management ASSESSMENT: Ms. Paloma Cannon is a 28 yo F w/ a PMHx of calciphylaxis,?antiphyospholipid syndrome (on coumadin), PAD, DVT, ?HFrEF,?CKD who [facility] ED for left leg pain associated w/ calciphylaxis flare (diagnosed in October 2017) and for treatment w/ sodium thiosulfate infusion. CPMS was re-consulted to revisit Ms. Cannon as LLE?pain ?2/2 calciphylaxis was not optimized on current regimen (was last seen by [facility] on 06/27/2018). ? PLAN: 1. Currently, Ms. Cannon is ordered the following medications for pain: ?- acetaminophen 650 mg PO q6h PRN ?- Cymbalta 90 mg PO QD (increased from 60 mg PO QD to 90 mg PO QD on 06/27) - Lyrica 150 mg PO BID + 200 mg PO QHS (night time dose increased on 07/30, was 150 mg PO TID from 07/10-07/29) ? 2. Since no hepatic impairment per review of most recent hepatic function panel on 07/30/2018 (and/or if not otherwise contraindicated), would consider increasing dose of acetaminophen to 1,000 mg PO TID for amelioration of nociceptive pain complaints. ? 3. Agree w/ Cymbalta as ordered for senior living management of Ms. Cannon's chronic LLE pain complaints. ? 4. Given normal renal function and since Ms. Cannon has been tolerating this medication for 3 weeks at the Lyrica 150 mg PO TID regimen, agree w/ upward titration of Lyrica as started last night. Would continue upward titration as below, holding at point where side effects become problematic and staying at dose where no side effects are seen: - Today: Lyrica 150 mg PO QAM+ QPM and Lyrica 200 mg PO QHS x 3 days - Then: Lyrica 150 mg PO QAM and Lyrica 200 mg PO QPM + QHS x 3 days - Then: Lyrica 200 mg PO TID ? 5. Agree w/ application of dime-sized amount of 5% topical lidocaine ointment to be applied AROUND painful sites up to 4x daily (avoiding any open/ulcerated areas). ? 6. Could also consider application of alternating heat/ice to painful area (per patient preference). However, Ms. Cannon should be instructed that if she were to use the heating pad, to keep usage down to no more than 20 minutes at a time (on 20 minutes/off 20 minutes) to prevent albarado. ? 7. Agree w/ consultation to Healing Services (ie: Healing Touch such as Reiki, Massage Therapy, Art and/or Music Therapy, Aromatherapy, Therapy Dog visit, etc) for amelioration of Ms. Cannon's acute on chronic pain complaints as this type of therapy would provide distraction away from current pain complaints and may allow for a break in the psychological aspect of pain. Nursing should feel free to order this service for their patients should they feel this type of service would benefit their patients while in-hospital. 8. Ms. Cannon wishes to make her own appointment after discharge w/ her outpatient Chronic Pain Management Service physician Dr. Christine. As such, she may call option #2 to schedule an appointment for a date/time that is convenient for her. Thank you for this consult. Primary team in responsible for placing any/all of the above mentioned recommendations as deemed appropriate. Please do not hesitate to contact us with any further concerns. Etelvina Bronson PA-C Chronic Pain Pager # [phone] July 31, 2018 INTERVAL HPI: Ms. Cannon was seen this morning while she was sleeping on her left side. She was easily awakened but somewhat sleepy, reporting that she is not used to waking up this early in the AM stating she normally sleeps in until the afternoon. She reports that her pain has been relatively well controlled until it suddenly worsened about 2-3 days ago and feels like her usual pain. She denies any aggravating/inciting factors. She has been tolerating the switch from gabapentin to Lyrica for the past 3 weeks and is in agreement w/ plan as above to slowly titrate up on this medication. MEDICATIONS: Current hospital medications: ferric gluconate 125 mg in NaCl 0.9% 100 mL (FERRLECIT) 125 mg INTRAVENOUS DAILY AT 6 PM [START ON 08/01/2018] ferrous sulfate 325 mg tab(s) 325 mg ORAL DAILY cyanocobalamin 1,000 mcg tab(s) (VITAMIN B-12) 1,000 mcg ORAL DAILY pregabalin 150 mg cap(s) (LYRICA) 150 mg ORAL DAILY pregabalin 150 mg cap(s) (LYRICA) 150 mg ORAL DAILY pregabalin (LYRICA) cap(s) 200 mg 200 mg ORAL AT BEDTIME lidocaine 5 % ointment (XYLOCAINE) TOPICAL TID PRN DULoxetine (CYMBALTA) cap(s) 90 mg 90 mg ORAL DAILY warfarin 4 mg tab(s) (COUMADIN) 4 mg ORAL DAILY - WARFARIN cholecalciferol 1,000 Units tab(s) (VITAMIN D3) 1,000 Units ORAL DAILY calcium gluconate 300 mg injection 300 mg INTRAVENOUS APHERESIS PRN calcium carbonate 1,000 mg chewable tab(s) (TUMS) 1,000 mg ORAL APHERESIS PRN calcium gluconate 300 mg injection 300 mg INTRAVENOUS APHERESIS PRN calcium carbonate 1,000 mg chewable tab(s) (TUMS) 1,000 mg ORAL APHERESIS PRN diphenhydrAMINE 50 mg injection (BENADRYL) 50 mg INTRAVENOUS APHERESIS PRN hydrocortisone sodium succinate (PF) 200 mg injection (Solu- CORTEF) 200 mg INTRAVENOUS APHERESIS PRN sodium citrate 4% 3-6 mL catheter lock 3-6 mL INTRALUMINAL APHERESIS PRN miconazole 2 % 1 application topical powder (LOTRIMIN AF, DESENEX) 1 application TOPICAL BID pamidronate 30 mg in NaCl 0.9% 1,000 mL (AREDIA) 30 mg INTRAVENOUS q 1 WEEK acetaminophen 650 mg tab(s) (TYLENOL) 650 mg ORAL q 6 H PRN losartan 25 mg tab(s) (COZAAR) 25 mg ORAL DAILY meperidine (PF) 25 mg injection (DEMEROL) 25 mg INTRAVENOUS q 6 H PRN sodium citrate 4% 3-6 mL catheter lock 3-6 mL INTRALUMINAL APHERESIS PRN sodium hypochlorite topical irrigation 0.25% (DAKINS HALF-STRENGTH) IRRIGATION DAILY NaCl 0.9% 10 mL 10 mL INTRAVENOUS q 12 H NaCl 0.9% 20 mL 20 mL INTRAVENOUS PRN carvedilol 12.5 mg tab(s) (COREG) 12.5 mg ORAL BID w MEALS cetirizine 10 mg tab(s) (ZyrTEC) 10 mg ORAL BID NIFEdipine ER 60 mg tab(S) (PROCARDIA XL) 60 mg ORAL DAILY pantoprazole DR 40 mg tab(s) (PROTONIX) 40 mg ORAL DAILY (6 AM) warfarin order for discharge OTHER PRN sodium thiosulfate 25 g in D5W 250 mL 25 g INTRAVENOUS q 1800 hydrocortisone sodium succinate (PF) 100 mg injection (Solu- CORTEF) 100 mg INTRAVENOUS q 6 H PRN diphenhydrAMINE 50 mg (BENADRYL) 50 mg ORAL q 6 H PRN PHYSICAL EXAM: Patient Vitals for the past 24 hrs: BP Temp Temp src Pulse Resp SpO2 Weight 07/31/18 0821 134/67 - - 83 - 97 % - 07/31/18 0532 130/64 36.8 ?C (98.2 ?F) Oral 83 18 100 % 112.6 kg (248 lb 3.8 oz) 07/30/18 2200 - - - - - 99 % - 07/30/18 1940 135/69 37.1 ?C (98.7 ?F) Oral 71 18 90 % - 07/30/18 1743 121/71 - - 71 - - - 07/30/18 1320 118/58 36.6 ?C (97.9 ?F) Oral 78 18 98 % - Body mass index is 43.97 kg/m?. GENERAL: Alert, no distress, cooperative SKIN: Positive findings: dressing on left medial distal lower extremity with some sanguinous drainage, but is otherwise intact HEAD/SINUSES: No significant findings EYES: EOMI, wearing glasses EARS: External ears normal, hearing intact NOSE: Nares normal. Septum midline. NC in place OROPHARYNX: Lips and oral mucosa normal NECK: Normal ROM LUNGS: Normal, unlabored respirations with normal diaphragmatic excursion at time of evaluation CARDIAC: Normal heart rate as per 24 hour VS EXTREMITIES: Positive findings: dressing on left medial distal lower extremity with some sanguinous drainage, but is otherwise intact NEURO: Grossly normal cognition, but somewhat sleepy The remainder of the physical exam is noncontributory. DATA: Diagnostic tests reviewed for today's visit: Radiology: IMPRESSION OF 07/02/2018 LEFT UPPER EXTREMITY DEEP VENOUS ULTRASOUND WITH DOPPLER IMAGING: NEGATIVE STUDY FOR ACUTE DVT IN THE LEFT UPPER EXTREMITY. NEGATIVE STUDY FOR SUPERFICIAL THROMBOPHLEBITIS IN THE LEFT UPPER EXTREMITY NONOCCLUSIVE THROMBUS ALONG THE WALL THE MEDIAL RIGHT SUBCLAVIAN VEIN, PARTIALLY VISUALIZED, WHICH APPEARS CHRONIC. ? IMPRESSION OF 06/28/2018 CT ABDOMEN AND PELVIS WITHOUT IV CONTRAST: CONTINUED INTERVAL DECREASE IN SIZE OF PREVIOUSLY PRESENT LEFT RETROPERITONEAL HEMATOMA. ?NO EVIDENCE OF NEW INTERVAL HEMORRHAGE. NO OTHER SIGNIFICANT INTERVAL CHANGE. Labs: CBC, Coags, BMP, Mg, Phos Recent Labs 07/31/18 0430 07/30/18 0430 07/29/18 0620 WBC -- -- 4.39 HB -- -- 8.9* HCT -- -- 27.5* PLT -- -- 150 INR 2.5* 2.5* 2.7* NA -- -- 144 K -- -- 4.2 CHLOR -- -- 107* CO2 -- -- 23 BUN -- -- 16 CREAT -- -- 0.95 GLUC -- -- 90 CA -- -- 9.0 Liver Function, Amylase, AND Lipase Recent Labs 07/30/18 0430 TPROT 6.0* ALB 3.6* ALT 8 AST 19 ALKPHOS 84 TBILI 0.3 MAR Reviewed SIGNATURE: Etelvina Bronson PA-C PAGER: [phone] STAFF: Dr. Ros Balderas DATE: July 31, 2018 TIME: 9:19 AM PAIN MANAGEMENT ATTENDING STAFF NOTE: I performed a [id number]-vp-rtot evaluation and participated in the care of Paloma Cannon. I have interviewed the patient, obtained the history, ROS, Physical Examination, reviewed the relevant diagnostic imaging and Assessment/Plan HPI: Paloma Cannon is a 28 year old female with the chief complaint of left-sided anterior thigh pain, circumferentially around the location of the calciphylaxis lesion, and deep, at the punctate area. This is my third time, trying to see her, and now successfully, having after missed her last she was in the cafe, was able to see her. The pain is sharp, stabbing, and waxes and wanes, but does not clearly worsen when she is having a deep dressing change. She has found no side effects from the analgesic pharmacotherapy is prescribed at present. Exam: She is an entirely comfortable appearing female, awake alert and oriented, comfortable and conversant. There is no sedation. Respirations are unlabored. Her thought processes are logical and organized. Over the extensor surface of the left thigh, there is a well demarcated dime sized ulceration, with reactive tissue, surrounding the lesion, most pronounced from the 12:00 to 6:00 position. Wet-to-dry dressings with in the wound, do not appear serosanguineous, and there is no gross drainage from the lesion. Assessment: Pain in left lower limb, calciphylaxis. I discussed the case with Dr. Kearns, there is certainly discordance between pain intensity, and observed pain behaviors. She reports no benefit from analgesic pharmacotherapy, and there is no immediate plans for discharge as she is not able to obtain the infusion therapy in the ambulatory setting, and hence is inpatient. Recommendations: - APAP 1000mg PO TID PRN - Cymbalta 90mg PO qAM - Upward titration of pregabalin as outlined above - OK with topical lidocaine adjacent to the wound edge, rather than inside - Consider the addition of adjunctive analgesic strategies such as nursing administered heat/cold modalities or an evaluation by the Healing Services Department for consideration for guided imagery, aromatherapy or healing touch. . I appreciate the kind referral and the opportunity to participate in the care or Paloma Cannon. If If there is any supplemental information or additional discussions regarding the patient's care, please do not hesitate to contact me. Signature: Ros Balderas MD Date: 07/31/2018 Pager: [phone] PROTIME Collected: 07/31/2018 Status: F Source: [place] 4:30 AM [facility] REPOSITORY TYPE CODE TESTS RESULT OUT OF RANGE REFERENCE UNITS LAB PSEC 9.7-13.0 sec High PT Sec 25.1 LAB INR 0.9-1.3 High PT INR 2.5 Result Comment: Vitamin K Antagonist (VKA) Therapeutic Range: INR 2 to 3 (Target INR of 2.5) Note: For patients treated with VKA drugs, such as warfarin, the [employer] 2012 Guideline recommends [...] Chest 2012, 141:7S-47S Diogenes RA, et al. [facility] 2017, 70: 252-289 Performed By: #### PT #### [facility] [address] [address] CONSULT PROG Observed: 07/30/2018 Status: COMPLETED Source: [place] 6:13 PM [facility] REPOSITORY HNO ID: [id number] Author: Linnette Colin Service: Dermatology Author Type: Physician Type: Consult Progress Note Filed: 07/30/2018 6:38 PM Note Text: DERMATOLOGY HOSPITAL CONSULT SERVICE PROGRESS NOTE Interval Events - Pain doing much better - One new small opening near already existing ulcer -No update regarding approval for IV pamidronate PHYSICAL EXAM BP 121/71 Pulse 71 Temp 36.6 ?C (97.9 ?F) (Oral) Resp 18 Ht 160 cm (5' 3) Wt 110.8 kg (244 lb 4.3 oz) SpO2 98% BMI 43.27 kg/m? Skin type: I GEN: awake, no acute distress Skin examination of the BLE including feet and was pertinent for: - Left lower leg with well demarcated ulceration with surrounding induration and adjacent small erosion. No purulent discharge. LABORATORY TESTS: CBC: Recent Labs 07/29/18 0607/26/18 0346 WBC 4.39 4.84 HB 8.9* 9.5* HCT 27.5* 30.4* PLT 150 172 MCV 87.6 87.6 RDWCV 15.6* 15.4* COAG: Recent Labs 07/30/18 0430 07/29/18 0620 07/28/18 0305 07/27/18 0235 07/26/18 0346 07/25/18 0438 07/24/18 0353 INR 2.5* 2.7* 2.9* 3.0* 2.9* 2.7* 3.1* BMP: Recent Labs 07/29/18 0607/26/18 0346 GLUC 90 99 NA 144 141 K 4.2 4.0 CHLOR 107* 105 CO2 23 25 ANION 14 11 BUN 16 13 CREAT 0.95 0.90 CHEM: Recent Labs 07/30/18 0430 07/29/18 0620 07/26/18 0346 ALB 3.6* -- -- TPROT 6.0* -- -- CA -- 9.0 9.1 FINAL DIAGNOSIS A. Skin, left leg, punch biopsy - Calciphylaxis (see comment). MP/CE/rw 06/27/2018 COMMENT Histologic sections demonstrate an effaced epidermis. The underlying dermis is fibrotic with vertically oriented blood vessels consistent with scar. Within the subcutis, there is extensive calcium deposition within the fat lobules and in the valente of small vessels within the subcutis. Additionally, there is stippled extracellular calcium. These histologic features are compatible with the clinical impression of calciphylaxis. A/P: Ms Cannon is a 28 year old female with a PMHx of antiphyospholipid syndrome on coumadin AND plasmapheresis, PAD, DVT, ?HFrEF,?CKD, calciphylaxis (diagnosed in February 2018 after being admitted for antiphospholipid syndrome). Patient has been unable to obtain outpatient coverage for STS despite appeal made by dermatology and is now admitted for worsening pain from LLE ulceration. Currently on IV sodium thiosulfate 25 g T, , Sat. Pamidronate started on 06/28/18- stopped due to ?allergic reaction (tingling in toes, no respiratory distress), but now tolerates with pre-medication with benadryl AND steroids. Disease likely aggravated by the fact that patient is still on warfarin. Recommend discussion with vascular medicine team regarding the possibility of switching to a different anticoagulant. Concern is present that she may develop a more serious sickness or infection from staying in the hospital for an extended period of time. Discussion between treatment of pain and calciphylaxis vs risks of prolonged hospital stay should be considered as from dermatology perspective discharge should be heavily considered. ? Plan - Continue STS 25 g three times weekly - Continue IV pamidronate 30 mg weekly - Insurance denial letter reviewed- STS was denied as requested drug is produced by a nonparticipating traffic sign supervisor. - Patient states she talked to her insurance company and pamidronate will reportedly be covered. She is wondering if she can get infusions at [facility] oncology cyril in [place] vs [facility]. [facility] infusion center has agreed to do the infusions for her; however, we are still waiting on insurance approval for the Pamidronate and possibly, but less likely STS - Local oncologist found to oversee patient's infusions; still awaiting coverage for pamidronate and less likely intralesional STS covered -Patient seen and discussed with staff gyroscopic instrument tester Dr. Abel Amezquita MD Dermatology Resident I was physically present during the critical/fernandes portions of this encounter and during all procedures, and agree with the above evaluation, assessment, and treatment plan. Pt well-known to me with APS and calciphylaxis (biopsied twice for confirmation). Her insurance will not approve sodium thiosulfate and infusion center team in [place] has not been able to determine how we can order pamidronate to be infused there. Meanwhile, patient has been hospitalized for weeks due to this. Would suggest strongly weighing risks of continued hospitalization vs discharge; there is no scientifically-proven effective treatment for calciphylaxis so difficult to know how well these treatments will help. Awaiting decision by vascular medicine about potentially transitioning her from coumadin (which is associated with calciphylaxis, especially non-uremic variant) to an alternative anti-coagulant. I reviewed the patient's chart and discussed care with the patient and the other physicians involved. Linnette Colin MD, PhD CONSULT PROG Observed: 07/30/2018 Status: COMPLETED Source: [place] 2:30 PM [facility] REPOSITORY HNO ID: [id number] Author: Ros Balderas Service: Pain Management Author Type: Physician Type: Consult Progress Note Filed: 07/30/2018 2:33 PM Note Text: PAIN MANAGEMENT ATTENDING STAFF NOTE: Off floor. Will revisit within 24hrs. Signature: Ros Balderas MD Date: 07/30/2018 Pager: [phone] PROGRESS Observed: 07/30/2018 Status: COMPLETED Source: [place] 1:16 PM [facility] REPOSITORY HNO ID: [id number] Author: Mckinley Kearns Service: General Internal Medicine Author Type: Physician Type: Progress Notes Filed: 07/30/2018 5:26 PM Note Text: Medicine [place] - [facility] Progress Note PATIENT NAME: Paloma Cannon LENGTH OF STAY: 37 HOSPITAL ROOM: [address]; AGE: 7 1990; 28 year old ADMITTING PHYSICIAN: Mckinley Kearns DATE OF ADMISSION: 06/22/2018 11:07 PM SERVICE - [facility] Brief Plan for Today -Warfarin 4mg, continue to mornitor INR. -continue sodium thiosulfate () + pamidronate (qwk Monday)?for calciphylaxis -PLEX q2wk for APLS, next session 08/06 -continue APAP and duloxetine, change pregabalin to 150mg at 0900 and 1400 and 200mg qhs for pain control. -carvedilol, losartan, nifedipine, torsemide PRN -pending insurance coverage for pamidronate -vitamin d3 1000 IU daily -oral B12 1000mcg daily for 30 days -Ferric gluconate 125mg for 2 doses -dental outpt f/u -continue healing services Interval Events -No acute events overnight. Patient afebrile and HDS. -Patient states pain was consistently 9/10 overnight in her left leg wound. Tylenol and tramadol did not provide any relief. -INR 2.5 this am -B12 589, folate >20 -Retics 1.7, Iron 36, TIBC 180, transferrin sat 20, ferritin 461.4 Medications/Allergies Medications Current Facility-Administered Medications: ferric gluconate 125 mg in NaCl 0.9% 100 mL (FERRLECIT) 125 mg INTRAVENOUS DAILY AT 6 PM [START ON 08/01/2018] ferrous sulfate 325 mg tab(s) 325 mg ORAL DAILY cyanocobalamin 1,000 mcg tab(s) (VITAMIN B-12) 1,000 mcg ORAL DAILY [START ON 07/31/2018] pregabalin 150 mg cap(s) (LYRICA) 150 mg ORAL DAILY pregabalin 150 mg cap(s) (LYRICA) 150 mg ORAL DAILY pregabalin (LYRICA) cap(s) 200 mg 200 mg ORAL AT BEDTIME lidocaine 5 % ointment (XYLOCAINE) TOPICAL TID PRN [START ON 07/31/2018] DULoxetine (CYMBALTA) cap(s) 90 mg 90 mg ORAL DAILY warfarin 4 mg tab(s) (COUMADIN) 4 mg ORAL DAILY - WARFARIN cholecalciferol 1,000 Units tab(s) (VITAMIN D3) 1,000 Units ORAL DAILY calcium gluconate 300 mg injection 300 mg INTRAVENOUS APHERESIS PRN Or calcium carbonate 1,000 mg chewable tab(s) (TUMS) 1,000 mg ORAL APHERESIS PRN calcium gluconate 300 mg injection 300 mg INTRAVENOUS APHERESIS PRN Or calcium carbonate 1,000 mg chewable tab(s) (TUMS) 1,000 mg ORAL APHERESIS PRN diphenhydrAMINE 50 mg injection (BENADRYL) 50 mg INTRAVENOUS APHERESIS PRN hydrocortisone sodium succinate (PF) 200 mg injection (Solu- CORTEF) 200 mg INTRAVENOUS APHERESIS PRN sodium citrate 4% 3-6 mL catheter lock 3-6 mL INTRALUMINAL APHERESIS PRN miconazole 2 % 1 application topical powder (LOTRIMIN AF, DESENEX) 1 application TOPICAL BID pamidronate 30 mg in NaCl 0.9% 1,000 mL (AREDIA) 30 mg INTRAVENOUS q 1 WEEK acetaminophen 650 mg tab(s) (TYLENOL) 650 mg ORAL q 6 H PRN losartan 25 mg tab(s) (COZAAR) 25 mg ORAL DAILY meperidine (PF) 25 mg injection (DEMEROL) 25 mg INTRAVENOUS q 6 H PRN sodium citrate 4% 3-6 mL catheter lock 3-6 mL INTRALUMINAL APHERESIS PRN sodium hypochlorite topical irrigation 0.25% (DAKINS HALF-STRENGTH) IRRIGATION DAILY NaCl 0.9% 10 mL 10 mL INTRAVENOUS q 12 H NaCl 0.9% 20 mL 20 mL INTRAVENOUS PRN carvedilol 12.5 mg tab(s) (COREG) 12.5 mg ORAL BID w MEALS cetirizine 10 mg tab(s) (ZyrTEC) 10 mg ORAL BID NIFEdipine ER 60 mg tab(S) (PROCARDIA XL) 60 mg ORAL DAILY pantoprazole DR 40 mg tab(s) (PROTONIX) 40 mg ORAL DAILY (6 AM) warfarin order for discharge OTHER PRN sodium thiosulfate 25 g in D5W 250 mL 25 g INTRAVENOUS q 1800 hydrocortisone sodium succinate (PF) 100 mg injection (Solu- CORTEF) 100 mg INTRAVENOUS q 6 H PRN diphenhydrAMINE 50 mg (BENADRYL) 50 mg ORAL q 6 H PRN Allergies Rhubarb; Chlorhexidine; Heparin; Iv Contrast [Iodine]; Rituximab Physical Exam BP 116/74 Pulse 70 Temp 36.8 ?C (98.2 ?F) (Oral) Resp 18 Ht 160 cm (5' 3) Wt 110.8 kg (244 lb 4.3 oz) SpO2 100% BMI 43.27 kg/m? General: no acute distress Cardiac: RRR. Normals S1, S2. No gallops. Pulm: CTA b/l in all lung ceballos. No w/r/c Abd: No distension. Nontender to palpation. Normal bowel sounds. No hepatosplenomegaly Ext:?No lower extremity edema.?2+ radial pulses b/l. See left medial thigh wound below. Left lateral ankle wound with bandage clean/dry/intact Neuro: moving all 4 extremities, no gross motor deficits Data I/O: Intake/Output Summary (Last 24 hours) at 07/30/18 1316 Last data filed at 07/30/18 1000 Gross per 24 hour Intake 620 ml Output 0 ml Net 620 ml Labs: CBC, Coags, BMP, Mg, Phos Recent Labs 07/30/18 0430 07/29/18 0620 07/28/18 0305 WBC -- 4.39 -- HB -- 8.9* -- HCT -- 27.5* -- PLT -- 150 -- INR 2.5* 2.7* 2.9* NA -- 144 -- K -- 4.2 -- CHLOR -- 107* -- CO2 -- 23 -- BUN -- 16 -- CREAT -- 0.95 -- GLUC -- 90 -- CA -- 9.0 -- Liver Function, Amylase, AND Lipase Recent Labs 07/30/18 0430 TPROT 6.0* ALB 3.6* ALT 8 AST 19 ALKPHOS 84 TBILI 0.3 Imaging: No new imaging. Patient Assessment and Plan Not Finalized Until Discussed with Attending Dr.Moises Kearns Assessment and Plan 28 yo F who presented with calciphylaxis related left leg pain on 06/22/19. ? 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 Seizure - on keppra 250mg TID ? # Calciphylaxis -06/26/18 left leg skin biopsy: effaced epidermis, underlying dermis is fibrotic with vertically oriented blood vessels consistent with scar. Within the subcutis, there is extensive calcium deposition within the fat lobules and in the valente of small vessels within the subcutis. Additionally, there is stippled extracellular calcium. Findings compatible with the clinical impression of Calciphylaxis. -Home meds: pamidronate qwk, sodium thiosulfate 12.5 g 3x/wk -Unable to get sodium thiosulfate as an outpatient -Worsening pain Plan -Sodium thiosulfate ?- 25g in 250ml D5W infused over 1 hour ?- Monitor Vital signs during infusion given (low) risk of hypotension ?- BMP once per week to check for anion gap metabolic acidosis ?PRN during infusion:?- Acetaminophen 650mg PRN as needed for headache (will premedicate with acetaminophen if headaches are frequent) ?- Diphenhydramine 50 mg IV PRN hypotension, shortness of breath or bronchospasm ?- Meperidine 25 mg Injection PRN for rigors ?- Stop infusion if either hypotension or rigors occur. Solu-cortef 100mg IV and normal saline as needed for hypotension ?- Ondansetron 8 mg IV PRN Nausea/Vomiting (will premedicate with ondansetron if nausea/vomiting frequent) -IV pamidronate 30 mg q Monday -Wound care per dermatology: washing with saline wound wash, packing with daikin soaked gauze, gauze and tape ? 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 Has received stenting of IVC and iliacs along with endograft of IVC. - C/B extensive RP bleed s/p L2, L3 embolization. 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 - APS causing hepatic vein thrombosis, caval/ileo/femoral DVT (09/2013) s/p L common/external vein stent placement, IVC thrombectomy, placement of endoglix AFX endograft at inferior vena cava bifurcation and bilateral SFA to saphenous vein fistulas - past surgeries: per notes: 09/18/2013 - IVC thrombectomy; 09/25/2013 - left and right common iliac/external iliac bein stending, Endoglix AFX endograft at the IVC bifurcation placed; 09/26/13 -09/29/13- left and right proximal superficial artery to first branch of greater saphenous vein AV fistula; 10/01/13- femoropopliteal endovascular thrombectomies; 02/02/18: ?ligation of LLE SFA to GSV fistula; 02/12/18: left groin debridement -Home meds: Typically takes 5 mg warfarin daily, except 7.5 mg on the day of PLEX and 1-2 days following Plan -warfarin titration; 07/27 Discussed warfarin with vascular medicine. Patient has triple positive APLS. Previous history of HIT eliminates option of lovenox for treatment. Only option is warfarin. Detailed explanation in 05/15/2018 consultation note: at the time of her calciphylaxis diagnosis in February, team covering Mrs. Cannon discussed w/Drs. Andujar and Guillaume (outpatient hematology and VM) given her complicated hx w/APS, frequent CAPRICE anytime she is ill and remote hx of HIT, warfarin was still thought to be the best AC option for her. ? - APAP 650mg PO 4x/day PRN - Cymbalta to 90mg PO qAM - Lyrica 150 mg at 900 and 1400 and 200 mg qhs ? #HFrEF #HTN -03/14/18 ILEANA: EF 45%, LV mildly dilated, LA cavity is dilated, 2+ TR, 2-3+ AR, mobile echodensities originating in the SVC extending into the right atrium most consistent with a moderate to large burden or residual thrombus from a prior central venous catheter. No evidence of endocarditis. -05/06 renal venous US showed occlusive thrombus througout the IVC. Minimal venous flow in the kidney -Home meds: losartan 12.5mg daily, nifedipine 60mg daily, torsemide 20mg q8h PRN, carvedilol 12.5mg BID Plan -Continue home nifedipine, carvedilol, losartan ? #Vitamin D deficiency -vitamin d 25-hydroxy = 12.5 Plan -vitamin d3 1000 IU daily #Anemia -Iron studies consistent with anemia of chronic disease. B12 may also be moderately low. Plan --oral B12 1000mcg daily for 30 days (started 07/30) -Ferric gluconate 125mg for 2 doses (final dose 08/01) ? Chronic conditions #Hx seasonal allergies / Hives - Continue home certirizine, Diphenhydramine prn #GERD - Continue home pantoprazole ? # Diet: regular # Dispo:?pending insurance approval of Na thiosulfate and/or pamidronate Lines, Drains, and Airways Line Central Line Single Lumen Tunneled Left Chest -- days Dialysis / Apheresis Double Lumen 03/17/18 1000 Admission to Hospital Tunneled Left Chest 135 days CODE STATUS: Full code SIGNATURE: Tony Puentes MD PATIENT NAME: Paloma Cannon DATE: July 30, 2018 TIME: 1:16 PM PAGER/CONTACT #: [phone] [facility] STAFF PHYSICIAN NOTE OF PERSONAL INVOLVEMENT IN CARE Chart reviewed, patient examined, and fernandes elements of progress note of the patient confirmed and agree with the documented findings and plan of care. Mckinley Kearns MD FAAP FACP [facility] Internal Medicine-Pediatrics Hospital Medicine/IMPACT Pager: VAURONM Date of Service: July 30, 2018 Time of Service: 5:26 PM ALLIED HEALTH Observed: 07/30/2018 Status: COMPLETED Source: [place] 12:10 PM [facility] REPOSITORY HNO ID: [id number] Author: Ok (Therapist) Abundio Service: Music Therapy Author Type: Music Therapist Type: Allied Health Filed: 07/30/2018 12:10 PM Note Text: MUSIC THERAPY NOTE SERVICE DATE: 07/30/2018 SERVICE TIME: 1115 Attempted music therapy session: pt sleeping comfortably at time of attempt, did not rouse to knock on door or voice. Will follow. SIGNATURE: Parrish Funk PATIENT NAME: Paloma Cannon DATE: July 30, 2018 TIME: 12:10 PM PAGER/CONTACT #: [phone] CONSULT PROG Observed: 07/30/2018 Status: COMPLETED Source: [place] 11:14 AM [facility] REPOSITORY HNO ID: [id number] Author: Etelvina Bronson (Pa) Service: Pain Management Author Type: Physician Drywall Sander Type: Consult Progress Note Filed: 07/30/2018 3:15 PM Note Text: CONSULT PROGRESS NOTES-Pain Management Patient Name: Paloma Cannon SERVICE DATE: July 30, 2018 SERVICE TIME: 1:45 PM CONSULTING SERVICE: Pain Management ASSESSMENT: Ms. Paloma Cannon is a 28 yo F w/ a PMHx of calciphylaxis,?antiphyospholipid syndrome (on coumadin), PAD, DVT, ?HFrEF,?CKD who was [facility] ED for left leg pain associated w/ calciphylaxis flare (diagnosed in October 2017) and for treatment w/ sodium thiosulfate infusion. CPMS was re-consulted to revisit Ms. Cannon as LLE?pain 2/2 calciphylaxis was not optimized on current regimen (was last seen by CPMS on 06/27/2018). Ms. Cannon was off the floor at time of visit so will return to see her tomorrow. Until then, please see below for tentative recommendations. TENTATIVE PLAN: 1. Currently, Ms. Cannon is ordered the following medications for pain: ?- acetaminophen 650 mg PO q6h PRN (not taking) ?- Cymbalta 120 mg PO QD (increased from 90 mg PO QD today, increased from 60 mg PO QD to 90 mg PO QD on 06/27) - Lyrica 150 mg PO BID + 200 mg PO QHS (night time dose increased today, was 150 mg PO TID from 07/10-07/29) 2. Since no hepatic impairment, and/or if not otherwise contraindicated, would consider increasing dose of acetaminophen to 1,000 mg PO TID for amelioration of nociceptive pain complaints. 3. Would not increase dose of Cymbalta given increased risk of bleeding with higher dose and, given that Ms. Cannon is also ordered coumadin, risk of bleeding would outweigh senior living analgesic benefit. 4. Given normal renal function and since Ms. Cannon has been tolerating this medication for 3 weeks at the Lyrica 150 mg PO TID regimen, agree w/ upward titration of Lyrica as started. Would continue upward titration as below, holding at point where side effects become problematic and staying at dose where no side effects are seen: - Today: Lyrica 150 mg PO QAM+ QPM and Lyrica 200 mg PO QHS x 3 days - Then: Lyrica 150 mg PO QAM and Lyrica 200 mg PO QPM + QHS x 3 days - Then: Lyrica 200 mg PO TID 5. If OK w/ Dermatology team, would consider application of dime-sized amount of 5% topical lidocaine ointment to be applied AROUND painful sites up to 4x daily (avoiding any open/ulcerated areas). 6. Could also consider application of alternating heat/ice to painful area (as per patient preference). However, Ms. Cannon should be instructed that if she were to use the heating pad, to keep usage down to no more than 20 minutes at a time (on 20 minutes/off 20 minutes) to prevent albarado. 7. Agree w/ consultation to Healing Services (ie: Healing Touch such as Reiki, Massage Therapy, Art and/or Music Therapy, Aromatherapy, Therapy Dog visit, etc) for amelioration of Ms. Cannon's acute on chronic pain complaints as this type of therapy would provide distraction away from current pain complaints and may allow for a break in the psychological aspect of pain. Nursing should feel free to order this service for their patients should they feel this type of service would benefit their patients while in-hospital. Thank you for this consult. Primary team in responsible for placing any/all of the above mentioned recommendations as deemed appropriate. Please do not hesitate to contact us with any further concerns. Etelvina Bronson PA-C Chronic Pain Pager # [phone] July 30, 2018 MEDICATIONS: Current hospital medications: ferric gluconate 125 mg in NaCl 0.9% 100 mL (FERRLECIT) 125 mg INTRAVENOUS DAILY AT 6 PM [START ON 08/01/2018] ferrous sulfate 325 mg tab(s) 325 mg ORAL DAILY cyanocobalamin 1,000 mcg tab(s) (VITAMIN B-12) 1,000 mcg ORAL DAILY [START ON 07/31/2018] pregabalin 150 mg cap(s) (LYRICA) 150 mg ORAL DAILY pregabalin 150 mg cap(s) (LYRICA) 150 mg ORAL DAILY pregabalin (LYRICA) cap(s) 200 mg 200 mg ORAL AT BEDTIME [START ON 07/31/2018] DULoxetine 120 mg cap(s) (CYMBALTA) 120 mg ORAL DAILY warfarin 4 mg tab(s) (COUMADIN) 4 mg ORAL DAILY - WARFARIN cholecalciferol 1,000 Units tab(s) (VITAMIN D3) 1,000 Units ORAL DAILY calcium gluconate 300 mg injection 300 mg INTRAVENOUS APHERESIS PRN calcium carbonate 1,000 mg chewable tab(s) (TUMS) 1,000 mg ORAL APHERESIS PRN calcium gluconate 300 mg injection 300 mg INTRAVENOUS APHERESIS PRN calcium carbonate 1,000 mg chewable tab(s) (TUMS) 1,000 mg ORAL APHERESIS PRN diphenhydrAMINE 50 mg injection (BENADRYL) 50 mg INTRAVENOUS APHERESIS PRN hydrocortisone sodium succinate (PF) 200 mg injection (Solu- CORTEF) 200 mg INTRAVENOUS APHERESIS PRN sodium citrate 4% 3-6 mL catheter lock 3-6 mL INTRALUMINAL APHERESIS PRN miconazole 2 % 1 application topical powder (LOTRIMIN AF, DESENEX) 1 application TOPICAL BID pamidronate 30 mg in NaCl 0.9% 1,000 mL (AREDIA) 30 mg INTRAVENOUS q 1 WEEK acetaminophen 650 mg tab(s) (TYLENOL) 650 mg ORAL q 6 H PRN losartan 25 mg tab(s) (COZAAR) 25 mg ORAL DAILY meperidine (PF) 25 mg injection (DEMEROL) 25 mg INTRAVENOUS q 6 H PRN sodium citrate 4% 3-6 mL catheter lock 3-6 mL INTRALUMINAL APHERESIS PRN sodium hypochlorite topical irrigation 0.25% (DAKINS HALF-STRENGTH) IRRIGATION DAILY NaCl 0.9% 10 mL 10 mL INTRAVENOUS q 12 H NaCl 0.9% 20 mL 20 mL INTRAVENOUS PRN carvedilol 12.5 mg tab(s) (COREG) 12.5 mg ORAL BID w MEALS cetirizine 10 mg tab(s) (ZyrTEC) 10 mg ORAL BID NIFEdipine ER 60 mg tab(S) (PROCARDIA XL) 60 mg ORAL DAILY pantoprazole DR 40 mg tab(s) (PROTONIX) 40 mg ORAL DAILY (6 AM) warfarin order for discharge OTHER PRN sodium thiosulfate 25 g in D5W 250 mL 25 g INTRAVENOUS q 1799 hydrocortisone sodium succinate (PF) 100 mg injection (Solu- CORTEF) 100 mg INTRAVENOUS q 6 H PRN diphenhydrAMINE 50 mg (BENADRYL) 50 mg ORAL q 6 H PRN PHYSICAL EXAM: Patient Vitals for the past 24 hrs: BP Temp Temp src Pulse Resp SpO2 07/30/18 0831 116/74 - - 70 - - 07/30/18 0600 118/63 36.8 ?C (98.2 ?F) Oral 74 18 100 % 07/29/18 2000 118/68 37.1 ?C (98.7 ?F) Oral 77 18 100 % 07/29/18 1700 139/74 - - 74 - - 07/29/18 1400 126/64 37.2 ?C (99 ?F) Oral 76 20 97 % Body mass index is 43.27 kg/m?. DATA: Diagnostic tests reviewed for today's visit: Radiology: IMPRESSION OF 07/02/2018 LEFT UPPER EXTREMITY DEEP VENOUS ULTRASOUND WITH DOPPLER IMAGING: NEGATIVE STUDY FOR ACUTE DVT IN THE LEFT UPPER EXTREMITY. NEGATIVE STUDY FOR SUPERFICIAL THROMBOPHLEBITIS IN THE LEFT UPPER EXTREMITY NONOCCLUSIVE THROMBUS ALONG THE WALL THE MEDIAL RIGHT SUBCLAVIAN VEIN, PARTIALLY VISUALIZED, WHICH APPEARS CHRONIC. IMPRESSION OF 06/28/2018 CT ABDOMEN AND PELVIS WITHOUT IV CONTRAST: CONTINUED INTERVAL DECREASE IN SIZE OF PREVIOUSLY PRESENT LEFT RETROPERITONEAL HEMATOMA. ?NO EVIDENCE OF NEW INTERVAL HEMORRHAGE. NO OTHER SIGNIFICANT INTERVAL CHANGE. Labs: CBC, Coags, BMP, Mg, Phos Recent Labs 07/30/18 0430 07/29/18 0620 07/28/18 0305 WBC -- 4.39 -- HB -- 8.9* -- HCT -- 27.5* -- PLT -- 150 -- INR 2.5* 2.7* 2.9* NA -- 144 -- K -- 4.2 -- CHLOR -- 107* -- CO2 -- 23 -- BUN -- 16 -- CREAT -- 0.95 -- GLUC -- 90 -- CA -- 9.0 -- Liver Function, Amylase, AND Lipase Recent Labs 07/30/18 0430 TPROT 6.0* ALB 3.6* ALT 8 AST 19 ALKPHOS 84 TBILI 0.3 MAR Reviewed SIGNATURE: Etelvina Bronson PA-C PAGER: [phone] STAFF: Dr. Ros Balderas DATE: July 30, 2018 TIME: 11:14 AM CASE MANAGEM Observed: 07/30/2018 Status: COMPLETED Source: [place] 9:02 AM [facility] REPOSITORY HNO ID: [id number] Author: Brittni SanchezRn) JEFF Lazar Service: Case Management Author Type: Registered Nurse Type: Care Mgt Progress Note Filed: 07/30/2018 9:02 AM Note Text: CARE MANAGEMENT PROGRESS NOTE SERVICE DATE: 07/30/2018 SERVICE TIME: 901 LOS: 37 days Needs Prior to Discharge: Insurance Authorization (scheduling to infusion center) will continue to follow patient progress and plan discharge accordingly. SIGNATURE: Brittni Lazar RN PATIENT NAME: Paloma Cannon DATE: July 30, 2018 TIME: 9:02 AM PAGER/CONTACT #: [phone] NURSING PROG Observed: 07/30/2018 Status: COMPLETED Source: [place] 5:37 AM [facility] REPOSITORY HNO ID: [id number] Author: Ursula SanchezRn) JEFF Hicks Service: (none) Author Type: Registered Nurse Type: Nursing Progress Note Filed: 07/30/2018 5:40 AM Note Text: Nursing Progress Note Patient Name: Paloma Cannon Patient Location: H080 [id number]/H080-09 Daily Note:AANDox3 on 2L. VSS. C/o LLL pain 03/19. PRN Tylenol given with no relief. Pradeep Melendez MD, ordered one time dose of 12.5mg tramadol did not experience relief will give PRN Tylenol. Will continue to monitor. Fall/safety precautions in place. This note was completed by: Ursula Hicks RN RETICULOCYTE Collected: 07/30/2018 Status: F Source: [place] 4:30 AM [facility] REPOSITORY TYPE CODE TESTS RESULT OUT OF REFERENCE UNITS RANGE LAB RETC 0.4-2.0 % Retic% 1.7 LAB ABRET 0.0180-0.1000 M/uL Abs Retic 0.056 Performed By: #### RETIC, PT, HFP, FERR, B12, SERFOL, IRON, ZINC #### [facility] [address] [id number] PROTIME Collected: 07/30/2018 Status: F Source: [place] 4:30 AM [facility] REPOSITORY TYPE CODE TESTS RESULT OUT OF RANGE REFERENCE UNITS LAB PSEC 9.7-13.0 sec High PT Sec 25.0 LAB INR 0.9-1.3 High PT INR 2.5 Result Comment: Vitamin K Antagonist (VKA) Therapeutic Range: INR 2 to 3 (Target INR of 2.5) Note: For patients treated with VKA drugs, such as warfarin, the [employer] 2012 Guideline recommends [...] Chest 2012, 141:7S-47S Diogenes RA, et al. [facility] 2017, 70: 252-289 Performed By: #### RETIC, PT, HFP, FERR, B12, SERFOL, IRON, ZINC #### [id number] [place] [address] HEPATIC FUNCTN PANEL Collected: 07/30/2018 Status: F Source: [place] 4:30 AM [facility] REPOSITORY TYPE CODE TESTS RESULT OUT OF REFERENCE UNITS RANGE LAB ALB 3.9-4.9 g/dL Low Albumin 3.6 LAB TBIL 0.2-1.3 mg/dL Bilirubin, Total 0.3 LAB CBIL <0.2 mg/dL Bilirubin,Conjuga <0.2 thania LAB ALKP 34-123 U/L Alkaline Phosphatase 84 LAB AST 13-35 U/L AST 19 LAB ALT 7-38 U/L ALT 8 LAB TP 6.3-8.0 g/dL Low Protein, Total 6.0 Performed By: #### RETIC, PT, HFP, FERR, B12, SERFOL, IRON, ZINC #### [place] [address] FERRITIN Collected: 07/30/2018 Status: F Source: [place] 4:30 AM [facility] REPOSITORY TYPE CODE TESTS RESULT OUT OF REFERENCE UNITS RANGE LAB FERR 14.7-205.1 ng/mL High Ferritin 461.4 Performed By: #### RETIC, PT, HFP, FERR, B12, SERFOL, IRON, ZINC #### [address] [address] VITAMIN B12 Collected: 07/30/2018 Status: F Source: [place] 4:30 AM [facility] REPOSITORY TYPE CODE TESTS RESULT OUT OF REFERENCE UNITS RANGE LAB B12 232-1245 pg/mL Vitamin B12 589 Performed By: #### RETIC, PT, HFP, FERR, B12, SERFOL, IRON, ZINC #### [address] [id number] FOLATE, SERUM Collected: 07/30/2018 Status: F Source: [place] 4:30 AM [facility] REPOSITORY TYPE CODE TESTS RESULT OUT OF REFERENCE UNITS RANGE LAB SERFOL >4.7 ng/mL Folate, >20.0 Serum Result Comment: A result of > 20 ng/mL is not necessarily indicative of a pathologic or treatable condition: it reflects a limitation of the test methodology. Assay reference range: 4.8 to 24.2 ng/mL. Suitable for detection of folate deficiency. Reference: Folate III (Folate III) [package insert V 2.0 [place]ian]. [employer] [address], [place], [place]: May 2015. Performed By: #### RETIC, PT, HFP, FERR, B12, SERFOL, IRON, ZINC #### [facility] [address] [address] IRON AND TIBC Collected: 07/30/2018 Status: F Source: [place] 4:30 AM [facility] REPOSITORY TYPE CODE TESTS RESULT OUT OF REFERENCE UNITS RANGE LAB IRN 41-186 ug/dL Low Iron 36 LAB TIBC 232-386 ug/dL Low TIBC 180 LAB SAT 15-57 % Transferrin Saturatn 20 Performed By: #### RETIC, PT, HFP, FERR, B12, SERFOL, IRON, ZINC #### [id number] [id number] ZINC Collected: 07/30/2018 Status: F Source: [place] 4:30 AM [facility] REPOSITORY TYPE CODE TESTS RESULT OUT OF RANGE REFERENCE UNITS LAB ZINC 55-150 ug/dL Zinc 85 Result Comment: This test was developed and its performance characteristics determined by [facility]'s [facility] Pathology and Laboratory Medicine [place] (-[facility]). It has not been cleared or approved by the FDA. [facility] is regulated under CLIA as qualified to perform high-complexity testing. This test is used for clinical purposes. It should not be regarded as investigational or for research. Performed By: #### RETIC, PT, HFP, FERR, B12, SERFOL, IRON, ZINC #### [facility] [address] [place], [place] [address] PROGRESS Observed: 07/29/2018 Status: COMPLETED Source: [place] 6:21 AM [facility] [place] REPOSITORY O ID: [id number] Author: Jose Elias Mir Service: General Internal Medicine Author Type: Resident Type: Progress Notes Filed: 07/29/2018 4:28 PM Note Text: Medicine [place] - Vipul Terry Progress Note PATIENT NAME: Paloma Cannon Service date and time: 07/29/2018, 6:21 AM Admit Date Length of stay: 06/22/2018 36 day(s) Plan for Today -Warfarin 4mg, continue to mornitor INR. -continue sodium thiosulfate (T--Sa) + pamidronate (qwk Monday)?for calciphylaxis -PLEX q2wk for APLS, next session 08/06 -continue APAP, duloxetine, pregabalin for pain control. -carvedilol, losartan, nifedipine, torsemide PRN -pending insurance coverage for pamidronate -vitamin d3 1000 IU daily -dental outpt f/u -continue healing services Interval Events -No acute overnight events. Reviewed nursing notes. -vitals: afebrile (Tmax 37.4), HR 66-86, RR 18, BP 112/59?129/61, SpO2 100 on 2L NC -07/29 INR 2.7 -Cr 0.95, electrolytes wnl -hgb 8.9 -pain well controlled, no acetaminophen or opiates over 24h -INR AND warfarin dose over 7d: 3.7 (warfarin held) > 3.5 (5mg warfarin) > 3.1 (4mg warfarin) > 2.7 (4mg warfarin) > 2.9 (4mg warfarin) > 3.0 (2mg warfarin) > 2.9 (3mg warfarin) Medications Current hospital medications: warfarin 3 mg tab(s) (COUMADIN) 3 mg ORAL DAILY - WARFARIN cholecalciferol 1,000 Units tab(s) (VITAMIN D3) 1,000 Units ORAL DAILY calcium gluconate 300 mg injection 300 mg INTRAVENOUS APHERESIS PRN calcium carbonate 1,000 mg chewable tab(s) (TUMS) 1,000 mg ORAL APHERESIS PRN calcium gluconate 300 mg injection 300 mg INTRAVENOUS APHERESIS PRN calcium carbonate 1,000 mg chewable tab(s) (TUMS) 1,000 mg ORAL APHERESIS PRN pregabalin 150 mg cap(s) (LYRICA) 150 mg ORAL TID diphenhydrAMINE 50 mg injection (BENADRYL) 50 mg INTRAVENOUS APHERESIS PRN hydrocortisone sodium succinate (PF) 200 mg injection (Solu- CORTEF) 200 mg INTRAVENOUS APHERESIS PRN sodium citrate 4% 3-6 mL catheter lock 3-6 mL INTRALUMINAL APHERESIS PRN miconazole 2 % 1 application topical powder (LOTRIMIN AF, DESENEX) 1 application TOPICAL BID pamidronate 30 mg in NaCl 0.9% 1,000 mL (AREDIA) 30 mg INTRAVENOUS q 1 WEEK acetaminophen 650 mg tab(s) (TYLENOL) 650 mg ORAL q 6 H PRN losartan 25 mg tab(s) (COZAAR) 25 mg ORAL DAILY DULoxetine (CYMBALTA) cap(s) 90 mg 90 mg ORAL DAILY meperidine (PF) 25 mg injection (DEMEROL) 25 mg INTRAVENOUS q 6 H PRN sodium citrate 4% 3-6 mL catheter lock 3-6 mL INTRALUMINAL APHERESIS PRN sodium hypochlorite topical irrigation 0.25% (DAKINS HALF-STRENGTH) IRRIGATION DAILY NaCl 0.9% 10 mL 10 mL INTRAVENOUS q 12 H NaCl 0.9% 20 mL 20 mL INTRAVENOUS PRN carvedilol 12.5 mg tab(s) (COREG) 12.5 mg ORAL BID w MEALS cetirizine 10 mg tab(s) (ZyrTEC) 10 mg ORAL BID NIFEdipine ER 60 mg tab(S) (PROCARDIA XL) 60 mg ORAL DAILY pantoprazole DR 40 mg tab(s) (PROTONIX) 40 mg ORAL DAILY (6 AM) warfarin order for discharge OTHER PRN sodium thiosulfate 25 g in D5W 250 mL 25 g INTRAVENOUS q 1800 hydrocortisone sodium succinate (PF) 100 mg injection (Solu- CORTEF) 100 mg INTRAVENOUS q 6 H PRN diphenhydrAMINE 50 mg (BENADRYL) 50 mg ORAL q 6 H PRN Physical Exam BP 129/61 Pulse 80 Temp 37.4 ?C (99.3 ?F) (Oral) Resp 18 Ht 160 cm (5' 3) Wt 110.8 kg (244 lb 4.3 oz) SpO2 100% BMI 43.27 kg/m? General: no acute distress Neuro: moving all 4 extremities, no gross motor deficits Cardiac: RRR. Normals S1, S2. No gallops. RUSB systolic flow murmur. Pulm: CTA b/l in all lung ceballos. No w/r/c Abd: No distension. Nontender to palpation. Normal bowel sounds. No hepatosplenomegaly Ext:?No lower extremity edema.?2+ radial pulses b/l. See left medial thigh wound below. Left lateral ankle wound with bandage clean/dry/intact Fluid Balance Intake/Output 07/25/18 0700 - 07/26/18 0659 07/26/18 0700 - 07/27/18 0659 07/27/18 0700 - 07/28/18 0659 07/28/18 0700 - 07/29/18 0659 Intake (ml) 840 907 596 2493 Output (ml) 0 -- -- 0 Net (ml) 840 327 001 8613 Labs CBC: Recent Labs 07/26/18 0346 07/23/18 0514 WBC 4.84 3.97 HB 9.5* 9.2* HCT 30.4* 29.3* PLT 172 146* MCV 87.6 89.1 RDWCV 15.4* 15.4* COAG: Recent Labs 07/28/18 0305 07/27/18 0235 07/26/18 0346 07/25/18 0438 07/24/18 0353 07/23/18 0514 INR 2.9* 3.0* 2.9* 2.7* 3.1* 3.5* BMP: Recent Labs 07/26/18 0346 07/23/18 0514 GLUC 99 109* NA 141 148* K 4.0 4.2 CHLOR 105 110* CO2 25 24 ANION 11 14 BUN 13 16 CREAT 0.90 1.08* CHEM: Recent Labs 07/26/18 0346 07/23/18 0514 CA 9.1 9.4 HEPATIC: No results for input(s): ALKPHOS, ALT, AST, TBILI, LIPASE in the last 168 hours. URINALYSIS:No results for input(s): PH, SPGR, UGLUC, UBILI, UKET, UHB, UPROT, UROBIL, UWBC, SSA in the last 168 hours. Invalid input(s): NITR CARDIAC: No results for input(s): CKTEST, CKMB, CKMBP, TROPT, PBNP in the last 168 hours. Assessment and Plan 28 yo F who presented with calciphylaxis related left leg pain on 06/22/19. ? 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 Seizure - on keppra 250mg TID ? # Calciphylaxis -06/26/18 left leg skin biopsy: effaced epidermis, underlying dermis is fibrotic with vertically oriented blood vessels consistent with scar. Within the subcutis, there is extensive calcium deposition within the fat lobules and in the valente of small vessels within the subcutis. Additionally, there is stippled extracellular calcium. Findings compatible with the clinical impression of Calciphylaxis. -Home meds: pamidronate qwk, sodium thiosulfate 12.5 g 3x/wk -Unable to get sodium thiosulfate as an outpatient -Worsening pain ? Plan -Sodium thiosulfate ?- 25g in 250ml D5W infused over 1 hour ?- Monitor Vital signs during infusion given (low) risk of hypotension ?- BMP once per week to check for anion gap metabolic acidosis ?PRN during infusion:?- Acetaminophen 650mg PRN as needed for headache (will premedicate with acetaminophen if headaches are frequent) ?- Diphenhydramine 50 mg IV PRN hypotension, shortness of breath or bronchospasm ?- Meperidine 25 mg Injection PRN for rigors ?- Stop infusion if either hypotension or rigors occur. Solu-cortef 100mg IV and normal saline as needed for hypotension ?- Ondansetron 8 mg IV PRN Nausea/Vomiting (will premedicate with ondansetron if nausea/vomiting frequent) -IV pamidronate 30 mg q Monday -Wound care per dermatology: washing with saline wound wash, packing with daikin soaked gauze, gauze and tape ? 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 Has received stenting of IVC and iliacs along with endograft of IVC. - C/B extensive RP bleed s/p L2, L3 embolization. 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 - APS causing hepatic vein thrombosis, caval/ileo/femoral DVT (09/2013) s/p L common/external vein stent placement, IVC thrombectomy, placement of endoglix AFX endograft at inferior vena cava bifurcation and bilateral SFA to saphenous vein fistulas - past surgeries: per notes: 09/18/2013 - IVC thrombectomy; 09/25/2013 - left and right common iliac/external iliac bein stending, Endoglix AFX endograft at the IVC bifurcation placed; 09/26/13 -09/29/13- left and right proximal superficial artery to first branch of greater saphenous vein AV fistula; 10/01/13- femoropopliteal endovascular thrombectomies; 02/02/18: ?ligation of LLE SFA to GSV fistula; 02/12/18: left groin debridement -Home meds: Typically takes 5 mg warfarin daily, except 7.5 mg on the day of PLEX and 1-2 days following ? Plan -warfarin titration; 07/27 Discussed warfarin with vascular medicine. Patient has triple positive APLS. Previous history of HIT eliminates option of lovenox for treatment. Only option is warfarin. Detailed explanation in 05/15/2018 consultation note: at the time of her calciphylaxis diagnosis in February, team covering Mrs. Cannon discussed w/Drs. Andujar and Guillaume (outpatient hematology and ) given her complicated hx w/APS, frequent CAPRICE anytime she is ill and remote hx of HIT, warfarin was still thought to be the best AC option for her. ? - APAP 650mg PO 4x/day PRN - Cymbalta to 90mg PO qAM - Lyrica 150 mg TID ? #HFrEF #HTN -03/14/18 ILEANA: EF 45%, LV mildly dilated, LA cavity is dilated, 2+ TR, 2-3+ AR, mobile echodensities originating in the SVC extending into the right atrium most consistent with a moderate to large burden or residual thrombus from a prior central venous catheter. No evidence of endocarditis. -05/06 renal venous US showed occlusive thrombus througout the IVC. Minimal venous flow in the kidney -Home meds: losartan 12.5mg daily, nifedipine 60mg daily, torsemide 20mg q8h PRN, carvedilol 12.5mg BID ? Plan -Continue home nifedipine, carvedilol, losartan ? #Vitamin D deficiency -vitamin d 25-hydroxy = 12.5 ? Plan -vitamin d3 1000 IU daily ? Chronic conditions #Hx seasonal allergies / Hives - Continue home certirizine, Diphenhydramine prn #GERD - Continue home pantoprazole ? # Diet: regular # Dispo:?pending insurance approval of Na thiosulfate and/or pamidronate Lines, Drains, and Airways Line Central Line Single Lumen Tunneled Left Chest -- days Dialysis / Apheresis Double Lumen 03/17/18 1000 Admission to Hospital Tunneled Left Chest 133 days Anticoagulant AND Antiplatelet Medications Start Dose Route Frequency Ordered Stop 07/28/18 1700 warfarin 3 mg tab(s) (COUMADIN) 3 mg ORAL DAILY - WARFARIN 07/28/18 0742 -- Jose Elias Mir M.D. Internal Button Sewing Machine Operator, PGY I NIGHT AND WEEKEND COVERAGE: Days: [phone], please page me [phone] for patient issues. Nights: After 5PM on weekdays and 3PM on weekends, please page [phone]. ATTENDING PHYSICIAN: Patient seen and evaluated today Fernandes elements of history and physical examination of the patient were confirmed. The assessment and plan were formulated and discussed with the team on Rounds. I reviewed the resident's note, examined the patient and agree with the documented findings and plan of care. Calciphylaxis slowly getting better with Na Thiosulfate - considering intralesional Na Thiosulfate Continue Coumadin for APS Continue Pamidronate for Calciphylaxis Kym Ford MD Mobile- [phone] ?? CBC Collected: 07/29/2018 Status: F Source: [place] 6:20 [facility] REPOSITORY TYPE CODE TESTS RESULT OUT OF REFERENCE UNITS RANGE LAB WBC 3.70-11.00 k/uL WBC 4.39 LAB RBC 3.90-5.20 m/uL Low RBC 3.14 LAB HGB 11.5-15.5 g/dL Low Hemoglobin 8.9 LAB HCT 36.0-46.0 % Low Hematocrit 27.5 LAB MCV 80.0-100.0 fL MCV 87.6 LAB MCH 26.0-34.0 pG MCH 28.3 LAB MCHC 30.5-36.0 g/dL MCHC 32.4 LAB RDWCV 11.5-15.0 % RDW-CV High 15.6 LAB PLTCT 150-400 k/uL Platelet Count 150 LAB MPV 9.0-12.7 fL MPV 10.4 LAB ABSNUC <0.01 k/uL Absolute nRBC <0.01 Performed By: #### CBC, PT, BMP #### [facility] [address] [place], [place] [address] PROTIME Collected: 07/29/2018 Status: F Source: [place] 6:20 AM [facility] REPOSITORY TYPE CODE TESTS RESULT OUT OF RANGE REFERENCE UNITS LAB PSEC 9.7-13.0 sec High PT Sec 26.9 LAB INR 0.9-1.3 High PT INR 2.7 Result Comment: Vitamin K Antagonist (VKA) Therapeutic Range: INR 2 to 3 (Target INR of 2.5) Note: For patients treated with VKA drugs, such as warfarin, the [employer] 2012 Guideline recommends [...] Chest 2012, 141:7S-47S Diogenes RA et al. [facility] 2017, 70: 252-289 Performed By: #### CBC, PT, BMP #### [facility] [address] [place] [id number] BASIC METABOLIC PANL Collected: 07/29/2018 Status: F Source: [place] 6:20 AM [facility] REPOSITORY TYPE CODE TESTS RESULT OUT OF REFERENCE UNITS RANGE LAB GLU 74-99 mg/dL Glucose 90 Result Comment: The [place] [employer] (ADA) provides guidance for cutoff [...] Standards of Medical Care in Diabetes 2016, [place] [employer]. Diabetes Care. 2016.39(Suppl 1). LAB BUN 7-21 mg/dL BUN 16 LAB CRET 0.58-0.96 mg/dL Creatinine 0.95 LAB NA 136-144 mmol/L Sodium 144 LAB K 3.7-5.1 mmol/L Potassium 4.2 LAB CL 97-105 mmol/L Chloride High 107 LAB CO2 22-30 mmol/L CO2 23 LAB AGAP 9-18 mmol/L Anion Gap 14 LAB CA 8.5-10.2 mg/dL Calcium, Total 9.0 LAB GFRAA eGFR- Amer. >60 LAB GFRNAA [...] actual GFR. Performed By: #### CBC, PT, BMP #### [facility] [address] [place], [place] [address] PROGRESS Observed: 07/28/2018 Status: COMPLETED Source: [place] 7:44 AM [facility] REPOSITORY HNO ID: [id number] Author: Kym Shukla) Liliana Service: General Internal Medicine Author Type: Physician Type: Progress Notes Filed: 07/28/2018 3:32 PM Note Text: VIPUL Terry PROGRESS NOTE For communications about this patient today please page [phone] (Resident: Florentin Segal). Please page [phone] during weekdays 5 pm to 7 am or weekend 3 pm to 7 am (information technology security analyst pager). SERVICE DATE: 07/28/2018 SERVICE TIME: 7:45 AM SUMMARY: 28 yo F who presented with calciphylaxis related left leg pain on 06/22/19. ? 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 Seizure - on keppra 250mg TID INTERVAL HISTORY: -No acute overnight events. Reviewed nursing notes. -Pain well controlled. Did not require any overnight acetaminophen. -vitals: afebrile (Tmax 36.9), HR 81-99, RR 18, BP 116/50?133/78, SpO2 98-100 on 2L NC -07/27 INR 2.9. -Healing services engaged -vitamin d 25-hydroxy = 12.5 -Discussed warfarin with vascular medicine. Patient has triple positive APLS. Previous history of HIT eliminates option of lovenox for treatment. Only option is warfarin. Detailed explanation in 05/15/2018 consultation note: ? at the time of her calciphylaxis diagnosis in February, team covering Mrs. Cannon discussed w/Drs. Andujar and Guillaume (outpatient hematology and ) given her complicated hx w/APS, frequent CAPRICE anytime she is ill and remote hx of HIT, warfarin was still thought to be the best AC option for her. ? Plan for Today: -Warfarin 3mg, continue to mornitor INR. -continue sodium thiosulfate (--, last dose 07/19) + pamidronate (qwk Monday, last dose 07/20)?for calciphylaxis -PLEX q2wk for APLS, next session 08/06 -continue APAP, duloxetine, pregabalin for pain control. -carvedilol, losartan, nifedipine, torsemide PRN -pending insurance coverage for pamidronate -vitamin d3 1000 IU daily -dental outpt f/u MEDICATIONS: Current hospital medications: warfarin 3 mg tab(s) (COUMADIN) 3 mg ORAL DAILY - WARFARIN cholecalciferol 1,000 Units tab(s) (VITAMIN D3) 1,000 Units ORAL DAILY calcium gluconate 300 mg injection 300 mg INTRAVENOUS APHERESIS PRN calcium carbonate 1,000 mg chewable tab(s) (TUMS) 1,000 mg ORAL APHERESIS PRN calcium gluconate 300 mg injection 300 mg INTRAVENOUS APHERESIS PRN calcium carbonate 1,000 mg chewable tab(s) (TUMS) 1,000 mg ORAL APHERESIS PRN pregabalin 150 mg cap(s) (LYRICA) 150 mg ORAL TID diphenhydrAMINE 50 mg injection (BENADRYL) 50 mg INTRAVENOUS APHERESIS PRN hydrocortisone sodium succinate (PF) 200 mg injection (Solu- CORTEF) 200 mg INTRAVENOUS APHERESIS PRN sodium citrate 4% 3-6 mL catheter lock 3-6 mL INTRALUMINAL APHERESIS PRN miconazole 2 % 1 application topical powder (LOTRIMIN AF, DESENEX) 1 application TOPICAL BID pamidronate 30 mg in NaCl 0.9% 1,000 mL (AREDIA) 30 mg INTRAVENOUS q 1 WEEK acetaminophen 650 mg tab(s) (TYLENOL) 650 mg ORAL q 6 H PRN losartan 25 mg tab(s) (COZAAR) 25 mg ORAL DAILY DULoxetine (CYMBALTA) cap(s) 90 mg 90 mg ORAL DAILY meperidine (PF) 25 mg injection (DEMEROL) 25 mg INTRAVENOUS q 6 H PRN sodium citrate 4% 3-6 mL catheter lock 3-6 mL INTRALUMINAL APHERESIS PRN sodium hypochlorite topical irrigation 0.25% (DAKINS HALF-STRENGTH) IRRIGATION DAILY NaCl 0.9% 10 mL 10 mL INTRAVENOUS q 12 H NaCl 0.9% 20 mL 20 mL INTRAVENOUS PRN carvedilol 12.5 mg tab(s) (COREG) 12.5 mg ORAL BID w MEALS cetirizine 10 mg tab(s) (ZyrTEC) 10 mg ORAL BID NIFEdipine ER 60 mg tab(S) (PROCARDIA XL) 60 mg ORAL DAILY pantoprazole DR 40 mg tab(s) (PROTONIX) 40 mg ORAL DAILY (6 AM) warfarin order for discharge OTHER PRN sodium thiosulfate 25 g in D5W 250 mL 25 g INTRAVENOUS q 1800 hydrocortisone sodium succinate (PF) 100 mg injection (Solu- CORTEF) 100 mg INTRAVENOUS q 6 H PRN diphenhydrAMINE 50 mg (BENADRYL) 50 mg ORAL q 6 H PRN PHYSICAL EXAM: VITAL SIGNS 07/27/18 1800 07/27/18 1809 07/27/18 2143 07/28/18 0600 BP: 116/75 132/70 122/70 117/61 Pulse: 92 89 78 79 Resp: 18 18 Temp: 37.2 ?C (98.9 ?F) 36.6 ?C (97.9 ?F) TempSrc: Oral Oral SpO2: 100% 100% Weight: Height: Temp (24hrs), Av.9 ?C (98.4 ?F), Min:36.6 ?C (97.9 ?F), Max:37.2 ?C (98.9 ?F) INTAKE/OUTPUT Intake/Output Summary (Last 24 hours) at 07/28/18 0745 Last data filed at 07/27/18 1300 Gross per 24 hour Intake 120 ml Output 0 ml Net 120 ml General: no acute distress Neuro: moving all 4 extremities, no gross motor deficits Cardiac: RRR. Normals S1, S2. No gallops. RUSB systolic flow murmur. Pulm: CTA b/l in all lung ceballos. No w/r/c Abd: No distension. Nontender to palpation. Normal bowel sounds. No hepatosplenomegaly Ext:?No lower extremity edema.?2+ radial pulses b/l. See left medial thigh wound below. Left lateral ankle wound with bandage clean/dry/intact LAB DATA: CBC: Recent Labs 07/26/18 0346 07/23/18 0514 WBC 4.84 3.97 HB 9.5* 9.2* HCT 30.4* 29.3* PLT 172 146* MCV 87.6 89.1 RDWCV 15.4* 15.4* COAG: Recent Labs 07/28/18 0305 07/27/18 0235 07/26/18 0346 07/25/18 0438 07/24/18 0353 07/23/18 0514 07/22/18 0220 INR 2.9* 3.0* 2.9* 2.7* 3.1* 3.5* 3.7* BMP: Recent Labs 07/26/18 0346 07/23/18 0514 GLUC 99 109* NA 141 148* K 4.0 4.2 CHLOR 105 110* CO2 25 24 ANION 11 14 BUN 13 16 CREAT 0.90 1.08* CHEM: Recent Labs 07/26/18 0346 07/23/18 0514 CA 9.1 9.4 HEPATIC: No results for input(s): ALKPHOS, ALT, AST, TBILI, LIPASE in the last 168 hours. URINALYSIS:No results for input(s): PH, SPGR, UGLUC, UBILI, UKET, UHB, UPROT, UROBIL, UWBC, SSA in the last 168 hours. Invalid input(s): NITR CARDIAC: No results for input(s): CKTEST, CKMB, CKMBP, TROPT, PBNP in the last 168 hours. ASSESSMENT AND PLAN: 28 yo F who presented with calciphylaxis related left leg pain on 06/22/19. ? 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 Seizure - on keppra 250mg TID ? # Calciphylaxis -06/26/18 left leg skin biopsy: effaced epidermis, underlying dermis is fibrotic with vertically oriented blood vessels consistent with scar. Within the subcutis, there is extensive calcium deposition within the fat lobules and in the valente of small vessels within the subcutis. Additionally, there is stippled extracellular calcium. Findings compatible with the clinical impression of Calciphylaxis. -Home meds: pamidronate qwk, sodium thiosulfate 12.5 g 3x/wk -Unable to get sodium thiosulfate as an outpatient -Worsening pain ? Plan -Sodium thiosulfate ?- 25g in 250ml D5W infused over 1 hour ?- Monitor Vital signs during infusion given (low) risk of hypotension ?- BMP once per week to check for anion gap metabolic acidosis ?PRN during infusion:?- Acetaminophen 650mg PRN as needed for headache (will premedicate with acetaminophen if headaches are frequent) ?- Diphenhydramine 50 mg IV PRN hypotension, shortness of breath or bronchospasm ?- Meperidine 25 mg Injection PRN for rigors ?- Stop infusion if either hypotension or rigors occur. Solu-cortef 100mg IV and normal saline as needed for hypotension ?- Ondansetron 8 mg IV PRN Nausea/Vomiting (will premedicate with ondansetron if nausea/vomiting frequent) -Dermatology consulted, punch biopsy obtained - sutures will need to be removed -IV pamidronate 30 mg q Monday -Wound care per dermatology: washing with saline wound wash, packing with daikin soaked gauze, gauze and tape ? 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 Has received stenting of IVC and iliacs along with endograft of IVC. - C/B extensive RP bleed s/p L2, L3 embolization. 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 - APS causing hepatic vein thrombosis, caval/ileo/femoral DVT (09/2013) s/p L common/external vein stent placement, IVC thrombectomy, placement of endoglix AFX endograft at inferior vena cava bifurcation and bilateral SFA to saphenous vein fistulas - past surgeries: per notes: 09/18/2013 - IVC thrombectomy; 09/25/2013 - left and right common iliac/external iliac bein stending, Endoglix AFX endograft at the IVC bifurcation placed; 09/26/13 -09/29/13- left and right proximal superficial artery to first branch of greater saphenous vein AV fistula; 10/01/13- femoropopliteal endovascular thrombectomies; 02/02/18: ?ligation of LLE SFA to GSV fistula; 02/12/18: left groin debridement -Home meds: Typically takes 5 mg warfarin daily, except 7.5 mg on the day of PLEX and 1-2 days following ? Plan -warfarin titration - APAP 650mg PO 4x/day PRN - Cymbalta to 90mg PO qAM - Lyrica 150 mg TID ? #HFrEF #HTN -03/14/18 ILEANA: EF 45%, LV mildly dilated, LA cavity is dilated, 2+ TR, 2-3+ AR, mobile echodensities originating in the SVC extending into the right atrium most consistent with a moderate to large burden or residual thrombus from a prior central venous catheter. No evidence of endocarditis. -05/06 renal venous US showed occlusive thrombus througout the IVC. Minimal venous flow in the kidney -Home meds: losartan 12.5mg daily, nifedipine 60mg daily, torsemide 20mg q8h PRN, carvedilol 12.5mg BID ? Plan -Continue home nifedipine, carvedilol, losartan ? #Vitamin D deficiency -vitamin d 25-hydroxy = 12.5 ? Plan -vitamin d3 1000 IU daily ? Chronic conditions #Hx seasonal allergies / Hives - Continue home certirizine, Diphenhydramine prn #GERD - Continue home pantoprazole ? # Diet: regular # Dispo:?pending insurance approval MAINTENANCE: VTE PROPHYLAXIS: Prophylaxis not indicated due to therapeutic anticoagulation. GI PROPHYLAXIS: pantoprazole 40mg PO daily NUTRITION: Eating and drinking diet IVF's: not indicated SUPPLEMENTAL OXYGEN: 2 lpm thorough NC. VASCULAR ACCESS: Lines, Drains, and Airways Line Central Line Single Lumen Tunneled Left Chest -- days Dialysis / Apheresis Double Lumen 03/17/18 1000 Admission to Hospital Tunneled Left Chest 133 days This note is not final until signed by staff physician and authenticated by responsible provider. ? SIGNATURE: Florentin Segal MD PGY-3 Internal Medicine Resident Pager: [phone] [email or web address] ATTENDING PHYSICIAN: Patient seen and evaluated today Fernandes elements of history and physical examination of the patient were confirmed. The assessment and plan were formulated and discussed with the team on Rounds. I reviewed the resident's note, examined the patient and agree with the documented findings and plan of care. No new problems except she mentioned there was a slight discharge of slightly thick fluid from Calciphylaxis wound yesterday Removed the dressing and appears like wound is slowly healing Discharge after pre-authorization Kym Ford MD [facility] [phone] ?? PROTIME Collected: 07/28/2018 Status: F Source: [place] 3:05 AM [facility] REPOSITORY TYPE CODE TESTS RESULT OUT OF RANGE REFERENCE UNITS LAB PSEC 9.7-13.0 sec High PT Sec 28.2 LAB INR 0.9-1.3 High PT INR 2.9 Result Comment: Vitamin K Antagonist (VKA) Therapeutic Range: INR 2 to 3 (Target INR of 2.5) Note: For patients treated with VKA drugs, such as warfarin, the [place] [employer] 2012 Guideline recommends [...] Chest 2012, 141:7S-47S Diogenes RA, et al. [facility] 2017, 70: 252-289 Performed By: #### PT #### [facility] [address] [place] [address] NURSING PROG Observed: 07/27/2018 Status: COMPLETED Source: [place] 12:01 PM [facility] REPOSITORY HNO ID: [id number] Author: Edel SanchezRn) JEFF Roman Service: Nursing Author Type: Registered Nurse Type: Nursing Progress Note Filed: 07/27/2018 12:03 PM Note Text: Nursing Progress Note Patient Name: Paloma Cannon Patient Location: H080 [id number]/[id number] Daily Note: Pt AANDOx3. VSS. Pt c/o baseline pain and declines PRN medications for pain. Pt insists benedryl and solucortef are to be admin prior to Pamidronate, MAR states Apheresis only; Dr. Mir notified, waiting on clarification. Safety precautions in place; bed in locked/lowest position, call light within reach. Will continue to monitor. This note was completed by: Edel Roman RN PROGRESS Observed: 07/27/2018 Status: COMPLETED Source: [place] 6:01 AM [facility] REPOSITORY HNO ID: [id number] Author: Mckinley Kearns Service: General Internal Medicine Author Type: Physician Type: Progress Notes Filed: 07/27/2018 3:13 PM Note Text: [facility] Vipul Terry Progress Note PATIENT NAME: Paloma Cannon Service date and time: 07/27/2018, 6:01 AM Admit Date Length of stay: 06/22/2018 34 day(s) Plan for Today -Warfarin 2mg -continue sodium thiosulfate (T-Th-Sa, last dose 07/19) + pamidronate (qwk Monday, last dose 07/20)?for calciphylaxis -PLEX q2wk for APLS, next session 08/06 -continue APAP, duloxetine, pregabalin for pain control. -carvedilol, losartan, nifedipine, torsemide PRN -pending insurance coverage for pamidronate -vitamin d3 1000 IU daily -dental outpt f/u -Discussed warfarin with vascular medicine. Patient has triple positive APLS. Previous history of HIT eliminates option of lovenox for treatment. Only option is warfarin. Detailed explanation in 05/15/2018 consultation note: at the time of her calciphylaxis diagnosis in February, team covering Mrs. Cannon discussed w/Drs. Andujar and Guillaume (outpatient hematology and ) given her complicated hx w/APS, frequent CAPRICE anytime she is ill and remote hx of HIT, warfarin was still thought to be the best AC option for her. Interval Events -No acute overnight events. Reviewed nursing notes. -Pain well controlled. Did not require any overnight acetaminophen. -vitals: afebrile (Tmax 36.9), HR 81-99, RR 18, BP 116/50?133/78, SpO2 98-100 on 2L NC -07/27 INR 3.0 -Healing services engaged -vitamin d 25-hydroxy = 12.5 Medications Current hospital medications: cholecalciferol 1,000 Units tab(s) (VITAMIN D3) 1,000 Units ORAL DAILY warfarin 4 mg tab(s) (COUMADIN) 4 mg ORAL DAILY - WARFARIN calcium gluconate 300 mg injection 300 mg INTRAVENOUS APHERESIS PRN calcium carbonate 1,000 mg chewable tab(s) (TUMS) 1,000 mg ORAL APHERESIS PRN calcium gluconate 300 mg injection 300 mg INTRAVENOUS APHERESIS PRN calcium carbonate 1,000 mg chewable tab(s) (TUMS) 1,000 mg ORAL APHERESIS PRN pregabalin 150 mg cap(s) (LYRICA) 150 mg ORAL TID diphenhydrAMINE 50 mg injection (BENADRYL) 50 mg INTRAVENOUS APHERESIS PRN hydrocortisone sodium succinate (PF) 200 mg injection (Solu- CORTEF) 200 mg INTRAVENOUS APHERESIS PRN sodium citrate 4% 3-6 mL catheter lock 3-6 mL INTRALUMINAL APHERESIS PRN miconazole 2 % 1 application topical powder (LOTRIMIN AF, DESENEX) 1 application TOPICAL BID pamidronate 30 mg in NaCl 0.9% 1,000 mL (AREDIA) 30 mg INTRAVENOUS q 1 WEEK acetaminophen 650 mg tab(s) (TYLENOL) 650 mg ORAL q 6 H PRN losartan 25 mg tab(s) (COZAAR) 25 mg ORAL DAILY DULoxetine (CYMBALTA) cap(s) 90 mg 90 mg ORAL DAILY meperidine (PF) 25 mg injection (DEMEROL) 25 mg INTRAVENOUS q 6 H PRN sodium citrate 4% 3-6 mL catheter lock 3-6 mL INTRALUMINAL APHERESIS PRN sodium hypochlorite topical irrigation 0.25% (DAKINS HALF-STRENGTH) IRRIGATION DAILY NaCl 0.9% 10 mL 10 mL INTRAVENOUS q 12 H NaCl 0.9% 20 mL 20 mL INTRAVENOUS PRN carvedilol 12.5 mg tab(s) (COREG) 12.5 mg ORAL BID w MEALS cetirizine 10 mg tab(s) (ZyrTEC) 10 mg ORAL BID NIFEdipine ER 60 mg tab(S) (PROCARDIA XL) 60 mg ORAL DAILY pantoprazole DR 40 mg tab(s) (PROTONIX) 40 mg ORAL DAILY (6 AM) warfarin order for discharge OTHER PRN sodium thiosulfate 25 g in D5W 250 mL 25 g INTRAVENOUS q 1800 hydrocortisone sodium succinate (PF) 100 mg injection (Solu- CORTEF) 100 mg INTRAVENOUS q 6 H PRN diphenhydrAMINE 50 mg (BENADRYL) 50 mg ORAL q 6 H PRN Physical Exam BP 126/69 Pulse 81 Temp 36.6 ?C (97.9 ?F) (Oral) Resp 18 Ht 160 cm (5' 3) Wt 105.7 kg (233 lb 0.4 oz) SpO2 100% BMI 41.28 kg/m? General: no acute distress Neuro: moving all 4 extremities, no gross motor deficits Cardiac: RRR. Normals S1, S2. No gallops. RUSB systolic flow murmur. Pulm: CTA b/l in all lung ceballos. No w/r/c Abd: No distension. Nontender to palpation. Normal bowel sounds. No hepatosplenomegaly Ext:?No lower extremity edema.?2+ radial pulses b/l. See left medial thigh wound below. Left lateral ankle wound with bandage clean/dry/intact Fluid Balance Intake/Output 07/23/18 0700 - 07/24/18 0659 07/24/18 0700 - 07/25/18 0659 07/25/18 0700 - 07/26/18 0659 07/26/18 0700 - 07/27/18 0659 Intake (ml) 776 240 840 490 Output (ml) 0 -- 0 -- Net (ml) 776 240 840 490 Labs CBC: Recent Labs 07/26/18 0346 07/23/18 0514 WBC 4.84 3.97 HB 9.5* 9.2* HCT 30.4* 29.3* PLT 172 146* MCV 87.6 89.1 RDWCV 15.4* 15.4* COAG: Recent Labs 07/27/18 0235 07/26/18 0346 07/25/18 0438 07/24/18 0353 07/23/18 0514 07/22/18 0220 07/21/18 0437 INR 3.0* 2.9* 2.7* 3.1* 3.5* 3.7* 3.6* BMP: Recent Labs 07/26/18 0346 07/23/18 0514 GLUC 99 109* NA 141 148* K 4.0 4.2 CHLOR 105 110* CO2 25 24 ANION 11 14 BUN 13 16 CREAT 0.90 1.08* CHEM: Recent Labs 07/26/18 0346 07/23/18 0514 CA 9.1 9.4 HEPATIC: No results for input(s): ALKPHOS, ALT, AST, TBILI, LIPASE in the last 168 hours. URINALYSIS:No results for input(s): PH, SPGR, UGLUC, UBILI, UKET, UHB, UPROT, UROBIL, UWBC, SSA in the last 168 hours. Invalid input(s): NITR CARDIAC: No results for input(s): CKTEST, CKMB, CKMBP, TROPT, PBNP in the last 168 hours. Assessment and Plan 28 yo F who presented with calciphylaxis related left leg pain on 06/22/19. ? 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 Seizure - on keppra 250mg TID ? # Calciphylaxis -06/26/18 left leg skin biopsy: effaced epidermis, underlying dermis is fibrotic with vertically oriented blood vessels consistent with scar. Within the subcutis, there is extensive calcium deposition within the fat lobules and in the valente of small vessels within the subcutis. Additionally, there is stippled extracellular calcium. Findings compatible with the clinical impression of Calciphylaxis. -Home meds: pamidronate qwk, sodium thiosulfate 12.5 g 3x/wk -Unable to get sodium thiosulfate as an outpatient -Worsening pain ? Plan -Sodium thiosulfate ?- 25g in 250ml D5W infused over 1 hour ?- Monitor Vital signs during infusion given (low) risk of hypotension ?- BMP once per week to check for anion gap metabolic acidosis ?PRN during infusion:?- Acetaminophen 650mg PRN as needed for headache (will premedicate with acetaminophen if headaches are frequent) ?- Diphenhydramine 50 mg IV PRN hypotension, shortness of breath or bronchospasm ?- Meperidine 25 mg Injection PRN for rigors ?- Stop infusion if either hypotension or rigors occur. Solu-cortef 100mg IV and normal saline as needed for hypotension ?- Ondansetron 8 mg IV PRN Nausea/Vomiting (will premedicate with ondansetron if nausea/vomiting frequent) -Dermatology consulted, punch biopsy obtained - sutures will need to be removed -IV pamidronate 30 mg q Monday -Wound care per dermatology: washing with saline wound wash, packing with daikin soaked gauze, gauze and tape ? 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 Has received stenting of IVC and iliacs along with endograft of IVC. - C/B extensive RP bleed s/p L2, L3 embolization. 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 - APS causing hepatic vein thrombosis, caval/ileo/femoral DVT (09/2013) s/p L common/external vein stent placement, IVC thrombectomy, placement of endoglix AFX endograft at inferior vena cava bifurcation and bilateral SFA to saphenous vein fistulas - past surgeries: per notes: 09/18/2013 - IVC thrombectomy; 09/25/2013 - left and right common iliac/external iliac bein stending, Endoglix AFX endograft at the IVC bifurcation placed; 09/26/13 -09/29/13- left and right proximal superficial artery to first branch of greater saphenous vein AV fistula; 10/01/13- femoropopliteal endovascular thrombectomies; 02/02/18: ?ligation of LLE SFA to GSV fistula; 02/12/18: left groin debridement -Home meds: Typically takes 5 mg warfarin daily, except 7.5 mg on the day of PLEX and 1-2 days following ? Plan -warfarin titration - APAP 650mg PO 4x/day PRN - Cymbalta to 90mg PO qAM - Lyrica 150 mg TID ? #HFrEF #HTN -03/14/18 ILEANA: EF 45%, LV mildly dilated, LA cavity is dilated, 2+ TR, 2-3+ AR, mobile echodensities originating in the SVC extending into the right atrium most consistent with a moderate to large burden or residual thrombus from a prior central venous catheter. No evidence of endocarditis. -05/06 renal venous US showed occlusive thrombus througout the IVC. Minimal venous flow in the kidney -Home meds: losartan 12.5mg daily, nifedipine 60mg daily, torsemide 20mg q8h PRN, carvedilol 12.5mg BID ? Plan -Continue home nifedipine, carvedilol, losartan ? #Vitamin D deficiency -vitamin d 25-hydroxy = 12.5 Plan -vitamin d3 1000 IU daily Chronic conditions #Hx seasonal allergies / Hives - Continue home certirizine, Diphenhydramine prn #GERD - Continue home pantoprazole ? # Diet: regular # Dispo:?pending insurance approval Lines, Drains, and Airways Line Central Line Single Lumen Tunneled Left Chest -- days Dialysis / Apheresis Double Lumen 03/17/18 1000 Admission to Hospital Tunneled Left Chest 131 days Anticoagulant AND Antiplatelet Medications Start Dose Route Frequency Ordered Stop 07/24/18 1700 warfarin 4 mg tab(s) (COUMADIN) 4 mg ORAL DAILY - WARFARIN 07/24/18 1047 -- Jose Elias Mir M.D. Internal Button Sewing Machine Operator, PGY I NIGHT AND WEEKEND COVERAGE: Days: [phone], please page me [phone] for patient issues. Nights: After 5PM on weekdays and 3PM on weekends, please page [phone]. [facility] STAFF PHYSICIAN NOTE OF PERSONAL INVOLVEMENT IN CARE Chart reviewed, patient examined, and fernandes elements of progress note of the patient confirmed and agree with the documented findings and plan of care. Care Coordination - Dr. Ford to f/u over the weekend. Mckinley Kearns MD FAAP FACP [facility] Internal Medicine-Pediatrics Hospital Medicine/IMPACT Pager: VAURONM Date of Service: July 27, 2018 Time of Service: 3:12 PM PROTIME Collected: 07/27/2018 Status: F Source: [place] 2:35 AM [facility] REPOSITORY TYPE CODE TESTS RESULT OUT OF RANGE REFERENCE UNITS LAB PSEC 9.7-13.0 sec High PT Sec 28.9 LAB INR 0.9-1.3 High PT INR 3.0 Result Comment: Vitamin K Antagonist (VKA) Therapeutic Range: INR 2 to 3 (Target INR of 2.5) Note: For patients treated with VKA drugs, such as warfarin, the [employer] 2012 Guideline recommends [...] 2.5 to 3.5 (target INR of 3). Micahel GH, et al. Chest 2012, 141:7S-47S Diogenes RA, et al. [facility] 2017, 70: 252-289 Performed By: #### PT #### [facility] [address] [place], [place] [address] PROGRESS Observed: 07/26/2018 Status: COMPLETED Source: [place] 5:58 AM [facility] REPOSITORY HNO ID: [id number] Author: Mckinley Kearns Service: General Internal Medicine Author Type: Physician Type: Progress Notes Filed: 07/26/2018 3:05 PM Note Text: Medicine [place] - Vipul Terry Progress Note PATIENT NAME: Paloma Cannon Service date and time: 07/26/2018, 5:59 AM Admit Date Length of stay: 06/22/2018 33 day(s) Plan for Today -pending vitamin D 25-hydroxy -F/U dentistry appt pending -Warfarin 4mg -continue sodium thiosulfate (, next dose TODAY) + pamidronate (qwk Monday, last dose 07/20)?for calciphylaxis -PRN tylenol, benadryl, meperidine, zofran during STS infusion -PLEX q2wk for APLS, next session 08/06 -continue APAP, duloxetine, pregabalin for pain control. -carvedilol, losartan, nifedipine, torsemide PRN -pending insurance coverage for pamidronate Interval Events -No acute overnight events. Reviewed nursing notes. -Pain well controlled -vitals: afebrile (TMax 37.3), HR 78-85, RR 16-18, BP 108/51?129/71, SpO2 99-100 on RA -INR 2.9 -Na 141, K 4.0, bicarb 25, BUN 13, Cr 0.90 -eGFR >60 -WBC 4.84, hgb 9.5, hct 30.4, plt 172 -07/25 Dermatology: Pain doing much better although she did require morphine last night. One new small opening near already existing ulcer. No update regarding approval for IV pamidronate or intralesional STS -24h PRN meds: 650mg acetaminophen x1, no opiates Medications Current hospital medications: warfarin 4 mg tab(s) (COUMADIN) 4 mg ORAL DAILY - WARFARIN calcium gluconate 300 mg injection 300 mg INTRAVENOUS APHERESIS PRN calcium carbonate 1,000 mg chewable tab(s) (TUMS) 1,000 mg ORAL APHERESIS PRN calcium gluconate 300 mg injection 300 mg INTRAVENOUS APHERESIS PRN calcium carbonate 1,000 mg chewable tab(s) (TUMS) 1,000 mg ORAL APHERESIS PRN pregabalin 150 mg cap(s) (LYRICA) 150 mg ORAL TID diphenhydrAMINE 50 mg injection (BENADRYL) 50 mg INTRAVENOUS APHERESIS PRN hydrocortisone sodium succinate (PF) 200 mg injection (Solu- CORTEF) 200 mg INTRAVENOUS APHERESIS PRN sodium citrate 4% 3-6 mL catheter lock 3-6 mL INTRALUMINAL APHERESIS PRN miconazole 2 % 1 application topical powder (LOTRIMIN AF, DESENEX) 1 application TOPICAL BID pamidronate 30 mg in NaCl 0.9% 1,000 mL (AREDIA) 30 mg INTRAVENOUS q 1 WEEK acetaminophen 650 mg tab(s) (TYLENOL) 650 mg ORAL q 6 H PRN losartan 25 mg tab(s) (COZAAR) 25 mg ORAL DAILY DULoxetine (CYMBALTA) cap(s) 90 mg 90 mg ORAL DAILY meperidine (PF) 25 mg injection (DEMEROL) 25 mg INTRAVENOUS q 6 H PRN sodium citrate 4% 3-6 mL catheter lock 3-6 mL INTRALUMINAL APHERESIS PRN sodium hypochlorite topical irrigation 0.25% (DAKINS HALF-STRENGTH) IRRIGATION DAILY NaCl 0.9% 10 mL 10 mL INTRAVENOUS q 12 H NaCl 0.9% 20 mL 20 mL INTRAVENOUS PRN carvedilol 12.5 mg tab(s) (COREG) 12.5 mg ORAL BID w MEALS cetirizine 10 mg tab(s) (ZyrTEC) 10 mg ORAL BID NIFEdipine ER 60 mg tab(S) (PROCARDIA XL) 60 mg ORAL DAILY pantoprazole DR 40 mg tab(s) (PROTONIX) 40 mg ORAL DAILY (6 AM) warfarin order for discharge OTHER PRN sodium thiosulfate 25 g in D5W 250 mL 25 g INTRAVENOUS q 1800 hydrocortisone sodium succinate (PF) 100 mg injection (Solu- CORTEF) 100 mg INTRAVENOUS q 6 H PRN diphenhydrAMINE 50 mg (BENADRYL) 50 mg ORAL q 6 H PRN Physical Exam BP 129/60 Pulse 80 Temp 36.9 ?C (98.4 ?F) (Oral) Resp 18 Ht 160 cm (5' 3) Wt 105.7 kg (233 lb 0.4 oz) SpO2 99% BMI 41.28 kg/m? General: no acute distress Neuro: moving all 4 extremities, no gross motor deficits Cardiac: RRR. Normals S1, S2. No gallops. RUSB systolic flow murmur. Pulm: CTA b/l in all lung ceballos. No w/r/c Abd: No distension. Nontender to palpation. Normal bowel sounds. No hepatosplenomegaly Ext:?No lower extremity edema.?2+ radial pulses b/l. See left medial thigh wound below. Left lateral ankle wound with bandage clean/dry/intact Fluid Balance Intake/Output 07/22/18 0700 - 07/23/18 0659 07/23/18 0700 - 07/24/18 0659 07/24/18 0700 - 07/25/18 0659 07/25/18 0700 - 07/26/18 0659 Intake (ml) 1310 776 240 840 Output (ml) 0 0 -- 0 Net (ml) 1310 776 240 840 Labs CBC: Recent Labs 07/26/18 0346 07/23/18 0514 07/20/18 0513 WBC 4.84 3.97 4.49 HB 9.5* 9.2* 9.4* HCT 30.4* 29.3* 29.7* PLT 172 146* 145* MCV 87.6 89.1 88.1 RDWCV 15.4* 15.4* 15.4* COAG: Recent Labs 07/26/18 0346 07/25/18 0438 07/24/18 0353 07/23/18 0514 07/22/18 0220 07/21/18 0437 07/20/18 0513 INR 2.9* 2.7* 3.1* 3.5* 3.7* 3.6* 3.3* BMP: Recent Labs 07/26/18 0346 07/23/18 0514 07/20/18 0513 GLUC 99 109* 71* NA 141 148* 141 K 4.0 4.2 3.9 CHLOR 105 110* 102 CO2 25 24 27 ANION 11 14 12 BUN 13 16 17 CREAT 0.90 1.08* 0.97* CHEM: Recent Labs 07/26/18 0346 07/23/18 0514 07/20/18 0513 CA 9.1 9.4 9.4 HEPATIC: No results for input(s): ALKPHOS, ALT, AST, TBILI, LIPASE in the last 168 hours. URINALYSIS:No results for input(s): PH, SPGR, UGLUC, UBILI, UKET, UHB, UPROT, UROBIL, UWBC, SSA in the last 168 hours. Invalid input(s): NITR CARDIAC: No results for input(s): CKTEST, CKMB, CKMBP, TROPT, PBNP in the last 168 hours. Assessment and Plan 28 yo F who presented with calciphylaxis related left leg pain on 06/22/19. ? 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 Seizure - on keppra 250mg TID ? # Calciphylaxis -06/26/18 left leg skin biopsy: effaced epidermis, underlying dermis is fibrotic with vertically oriented blood vessels consistent with scar. Within the subcutis, there is extensive calcium deposition within the fat lobules and in the valente of small vessels within the subcutis. Additionally, there is stippled extracellular calcium. Findings compatible with the clinical impression of Calciphylaxis. -Home meds: pamidronate qwk, sodium thiosulfate 12.5 g 3x/wk -Unable to get sodium thiosulfate as an outpatient -Worsening pain ? Plan -Sodium thiosulfate ?- 25g in 250ml D5W infused over 1 hour ?- Monitor Vital signs during infusion given (low) risk of hypotension ?- BMP once per week to check for anion gap metabolic acidosis ?PRN during infusion:?- Acetaminophen 650mg PRN as needed for headache (will premedicate with acetaminophen if headaches are frequent) ?- Diphenhydramine 50 mg IV PRN hypotension, shortness of breath or bronchospasm ?- Meperidine 25 mg Injection PRN for rigors ?- Stop infusion if either hypotension or rigors occur. Solu-cortef 100mg IV and normal saline as needed for hypotension ?- Ondansetron 8 mg IV PRN Nausea/Vomiting (will premedicate with ondansetron if nausea/vomiting frequent) -Dermatology consulted, punch biopsy obtained - sutures will need to be removed -IV pamidronate 30 mg q Monday -Wound care per dermatology: washing with saline wound wash, packing with daikin soaked gauze, gauze and tape ? 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 Has received stenting of IVC and iliacs along with endograft of IVC. - C/B extensive RP bleed s/p L2, L3 embolization. 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 - APS causing hepatic vein thrombosis, caval/ileo/femoral DVT (09/2013) s/p L common/external vein stent placement, IVC thrombectomy, placement of endoglix AFX endograft at inferior vena cava bifurcation and bilateral SFA to saphenous vein fistulas - past surgeries: per notes: 09/18/2013 - IVC thrombectomy; 09/25/2013 - left and right common iliac/external iliac bein stending, Endoglix AFX endograft at the IVC bifurcation placed; 09/26/13 -09/29/13- left and right proximal superficial artery to first branch of greater saphenous vein AV fistula; 10/01/13- femoropopliteal endovascular thrombectomies; 02/02/18: ?ligation of LLE SFA to GSV fistula; 02/12/18: left groin debridement -Home meds: Typically takes 5 mg warfarin daily, except 7.5 mg on the day of PLEX and 1-2 days following ? Plan -warfarin titration, recently supratherapeutic - APAP 650mg PO 4x/day PRN - Cymbalta to 90mg PO qAM - Lyrica 150 mg TID ? #HFrEF #HTN -03/14/18 ILEANA: EF 45%, LV mildly dilated, LA cavity is dilated, 2+ TR, 2-3+ AR, mobile echodensities originating in the SVC extending into the right atrium most consistent with a moderate to large burden or residual thrombus from a prior central venous catheter. No evidence of endocarditis. -05/06 renal venous US showed occlusive thrombus througout the IVC. Minimal venous flow in the kidney -Home meds: losartan 12.5mg daily, nifedipine 60mg daily, torsemide 20mg q8h PRN, carvedilol 12.5mg BID ? Plan -Continue home nifedipine, carvedilol, losartan ? Chronic conditions #Hx seasonal allergies / Hives - Continue home certirizine, Diphenhydramine prn #GERD - Continue home pantoprazole ? # Diet: regular # Dispo:?pending insurance approval Lines, Drains, and Airways Line Central Line Single Lumen Tunneled Left Chest -- days Dialysis / Apheresis Double Lumen 03/17/18 1000 Admission to Hospital Tunneled Left Chest 130 days Anticoagulant AND Antiplatelet Medications Start Dose Route Frequency Ordered Stop 07/24/18 1700 warfarin 4 mg tab(s) (COUMADIN) 4 mg ORAL DAILY - WARFARIN 07/24/18 1047 -- Jose Elias Mir M.D. Internal Button Sewing Machine Operator, PGY I NIGHT AND WEEKEND COVERAGE: Days: [phone], [place] page [place] [phone] for patient issues. Nights: After 5PM on weekdays and 3PM on weekends, please page [phone]. [facility] STAFF PHYSICIAN NOTE OF PERSONAL INVOLVEMENT IN CARE Chart reviewed, patient examined, and fernandes elements of progress note of the patient confirmed and agree with the documented findings and plan of care. Mckinley Kerans MD FAAP FACP [facility] Internal Medicine-Pediatrics [facility] Medicine/IMPACT Pager: VAURONM Date of Service: July 26, 2018 Time of Service: 3:05 PM CBC Collected: 07/26/2018 Status: F Source: [place] 3:46 AM [facility] REPOSITORY TYPE CODE TESTS RESULT OUT OF REFERENCE UNITS RANGE LAB WBC 3.70-11.00 k/uL WBC 4.84 LAB RBC 3.90-5.20 m/uL Low RBC 3.47 LAB HGB 11.5-15.5 g/dL Low Hemoglobin 9.5 LAB HCT 36.0-46.0 % Low Hematocrit 30.4 LAB MCV 80.0-100.0 fL MCV 87.6 LAB MCH 26.0-34.0 pG MCH 27.4 LAB MCHC 30.5-36.0 g/dL MCHC 31.3 LAB RDWCV 11.5-15.0 % RDW-CV High 15.4 LAB PLTCT 150-400 k/uL Platelet Count 172 LAB MPV 9.0-12.7 fL MPV 10.7 LAB ABSNUC <0.01 k/uL Absolute nRBC <0.01 Performed By: #### CBC, PT, BMP, VITD #### [facility] [address] [place], [place] [address] PROTIME Collected: 07/26/2018 Status: F Source: [place] 3:46 AM [facility] REPOSITORY TYPE CODE TESTS RESULT OUT OF RANGE REFERENCE UNITS LAB PSEC 9.7-13.0 sec High PT Sec 28.7 LAB INR 0.9-1.3 High PT INR 2.9 Result Comment: Vitamin K Antagonist (VKA) Therapeutic Range: INR 2 to 3 (Target INR of 2.5) Note: For patients treated with VKA drugs, such as warfarin, the [employer] 2012 Guideline recommends [...] Chest 2012, 141:7S-47S Diogenes RA, et al. [facility] 2017, 70: 252-289 Performed By: #### CBC, PT, BMP, VITD #### [facility] [address] [place], [place] [address] BASIC METABOLIC PANL Collected: 07/26/2018 Status: F Source: [place] 3:46 AM [facility] REPOSITORY TYPE CODE TESTS RESULT OUT OF REFERENCE UNITS RANGE LAB GLU 74-99 mg/dL Glucose 99 Result Comment: The [place] [employer] (ADA) provides guidance for cutoff [...] Standards of Medical Care in Diabetes 2016, [place] [employer]. Diabetes Care. 2016.39(Suppl 1). LAB BUN 7-21 mg/dL BUN 13 LAB CRET 0.58-0.96 mg/dL Creatinine 0.90 LAB NA 136-144 mmol/L Sodium 141 LAB K 3.7-5.1 mmol/L Potassium 4.0 LAB CL 97-105 mmol/L Chloride 105 LAB CO2 22-30 mmol/L CO2 25 LAB AGAP 9-18 mmol/L Anion Gap 11 LAB CA 8.5-10.2 mg/dL Calcium, Total 9.1 LAB GFRAA eGFR- Amer. >60 LAB GFRNAA [...] GFR. Performed By: #### CBC, PT, BMP, VITD #### [facility] [address] [place], [place] [address] VITAMIN D 25 HYDROXY Collected: 07/26/2018 Status: F Source: [place] 3:46 AM [facility] REPOSITORY TYPE CODE TESTS RESULT OUT OF REFERENCE UNITS RANGE LAB VITD 31.0-80.0 ng/mL Low Vitamin D 25 12.5 Hydroxy Result Comment: Classification of 25 [place] Vitamin D status: Insufficiency/Moderate Deficiency: < or = 30 ng/mL Sufficiency/Optimal Levels: 31 to 80 ng/mL Toxicity: > 100 ng/mL Test performed by chemiluminescent immunoassay. Performed By: #### CBC, PT, BMP, VITD #### [facility] [address] [place], [place] [address] CONSULT PROG Observed: 07/25/2018 Status: COMPLETED Source: [place] 3:33 PM [facility] REPOSITORY HNO ID: [id number] Author: Gisele Rutherford Service: Dermatology Author Type: Physician Type: Consult Progress Note Filed: 07/27/2018 12:54 PM Note Text: DERMATOLOGY HOSPITAL CONSULT SERVICE PROGRESS NOTE Interval Events - Pain doing much better although she did require morphine last night - One new small opening near already existing ulcer -No update regarding approval for IV pamidronate or intralesional STS PHYSICAL EXAM BP 114/50 Pulse 80 Temp 37 ?C (98.6 ?F) (Oral) Resp 16 Ht 160 cm (5' 3) Wt 105.7 kg (233 lb 0.4 oz) SpO2 100% BMI 41.28 kg/m? Skin type: I GEN: awake, no acute distress Skin examination of the BLE including feet and was pertinent for: - Left lower leg with well demarcated ulceration with surrounding induration and adjacent small erosion. No purulent discharge. LABORATORY TESTS: CBC: Recent Labs 07/23/18 0514 07/20/18 05 WBC 3.97 4.49 HB 9.2* 9.4* HCT 29.3* 29.7* PLT 146* 145* MCV 89.1 88.1 RDWCV 15.4* 15.4* COAG: Recent Labs 07/25/18 0438 07/24/18 0353 07/23/18 0514 07/22/18 0220 07/21/18 0437 07/20/18 0513 07/19/18 0510 INR 2.7* 3.1* 3.5* 3.7* 3.6* 3.3* 3.6* BMP: Recent Labs 07/23/18 0514 07/20/18 0513 GLUC 109* 71* NA 148* 141 K 4.2 3.9 CHLOR 110* 102 CO2 24 27 ANION 14 12 BUN 16 17 CREAT 1.08* 0.97* CHEM: Recent Labs 07/23/18 0514 07/20/18 05 CA 9.4 9.4 FINAL DIAGNOSIS A. Skin, left leg, punch biopsy - Calciphylaxis (see comment). MP/CE/rw 06/27/2018 COMMENT Histologic sections demonstrate an effaced epidermis. The underlying dermis is fibrotic with vertically oriented blood vessels consistent with scar. Within the subcutis, there is extensive calcium deposition within the fat lobules and in the valente of small vessels within the subcutis. Additionally, there is stippled extracellular calcium. These histologic features are compatible with the clinical impression of calciphylaxis. A/P: Ms Cannon is a 28 year old female with a PMHx of antiphyospholipid syndrome on coumadin AND plasmapheresis, PAD, DVT, ?HFrEF,?CKD, calciphylaxis (diagnosed in February 2018 after being admitted for antiphospholipid syndrome). Patient has been unable to obtain outpatient coverage for STS despite appeal made by dermatology and is now admitted for worsening pain from LLE ulceration. Currently on IV sodium thiosulfate 25 g T, Mon. Pamidronate started on 06/28/18- stopped due to ?allergic reaction (tingling in toes, no respiratory distress), but now tolerates with pre-medication with benadryl AND steroids. Disease likely aggravated by the fact that patient is still on warfarin. Concern is present that she may develop a more serious sickness or infection from staying in the hospital for an extended period of time. Discussion between treatment of pain and calciphylaxis vs risks of prolonged hospital stay should be considered. ? Plan - Continue STS 25 g three times weekly - Continue IV pamidronate 30 mg weekly - Insurance denial letter reviewed- STS was denied as requested drug is produced by a nonparticipating traffic sign supervisor. - Patient states she talked to her insurance company and pamidronate will reportedly be covered. She is wondering if she can get infusions at [facility] oncology center in [place] vs [facility]. [facility] infusion center has agreed to do the infusions for her; however, we are still waiting on insurance approval for the Pamidronate and possibly, but less likely STS - Local oncologist found to oversee patient's infusions; still awaiting coverage for pamidronate and less likely intralesional STS covered -Patient seen and discussed with staff gyroscopic instrument tester Dr. Nicholas Amezquita MD Dermatology Resident July 18, 2018 I have seen and examined Ms. Cannon. I have discussed the case and the management of this patient's care with the Resident. I also have reviewed and agree with the assessment and plan as stated above and agree with all of its relevant components. There were no procedures performed during this patient's visit. Gisele Rutherford MD NURSING PROG Observed: 07/25/2018 Status: COMPLETED Source: [place] 11:53 AM [facility] REPOSITORY HNO ID: [id number] Author: Tiffani Sauer) JEFF Hernadez Service: (none) Author Type: Registered Nurse Type: Nursing Progress Note Filed: 07/25/2018 11:55 AM Note Text: Nursing Progress Note Patient Name: Paloma Cannon Patient Location: [place] [address]/[facility]- Pt is AANDOx3. VSS, afebrile,. SAT's WNL on 2L NC. Currently resting at this time. Labs being monitored daily. OOB with steady gait. Skin prevention maintained; fall/safety prevention maintained. No other concerns at this time. Skin prevention maintained; fall/safety prevention maintained. Pt encouraged to turn q2. Will monitor. This note was completed by: Tiffani Hernadez RN PROGRESS Observed: 07/25/2018 Status: COMPLETED Source: [place] 6:30 AM [facility] REPOSITORY HNO ID: [id number] Author: Jose Elias Mir Service: General Internal Medicine Author Type: Resident Type: Progress Notes Filed: 07/25/2018 2:41 PM Note Text: [facility] Progress Note PATIENT NAME: Paloma Cannon Service date and time: 07/25/2018, 6:31 AM Admit Date Length of stay: 06/22/2018 32 day(s) Plan for Today -Warfarin 4mg -continue sodium thiosulfate (T-Th-Sa, last dose 07/19) + pamidronate (qwk Monday, last dose 07/20)?for calciphylaxis -PLEX q2wk for APLS, next session 08/06 -continue APAP, duloxetine, pregabalin for pain control. -carvedilol, losartan, nifedipine, torsemide PRN -pending insurance coverage for pamidronate -vitamin d3 25 hydroxy -dental consult Interval Events -No acute overnight events. Reviewed nursing notes. -Pain managed with 2x tylenol 650mg PRN over 24h. Required 1mg morphine overnight -vitals: afebrile (Tmax 36.9), HR 80-88, RR 17-20, BP 112/60?122/63, SpO2 99-100 on 2L NC (baseline) -07/25 INR 2.7 Medications Current hospital medications: warfarin 4 mg tab(s) (COUMADIN) 4 mg ORAL DAILY - WARFARIN calcium gluconate 300 mg injection 300 mg INTRAVENOUS APHERESIS PRN calcium carbonate 1,000 mg chewable tab(s) (TUMS) 1,000 mg ORAL APHERESIS PRN calcium gluconate 300 mg injection 300 mg INTRAVENOUS APHERESIS PRN calcium carbonate 1,000 mg chewable tab(s) (TUMS) 1,000 mg ORAL APHERESIS PRN pregabalin 150 mg cap(s) (LYRICA) 150 mg ORAL TID diphenhydrAMINE 50 mg injection (BENADRYL) 50 mg INTRAVENOUS APHERESIS PRN hydrocortisone sodium succinate (PF) 200 mg injection (Solu- CORTEF) 200 mg INTRAVENOUS APHERESIS PRN sodium citrate 4% 3-6 mL catheter lock 3-6 mL INTRALUMINAL APHERESIS PRN miconazole 2 % 1 application topical powder (LOTRIMIN AF, DESENEX) 1 application TOPICAL BID pamidronate 30 mg in NaCl 0.9% 1,000 mL (AREDIA) 30 mg INTRAVENOUS q 1 WEEK acetaminophen 650 mg tab(s) (TYLENOL) 650 mg ORAL q 6 H PRN losartan 25 mg tab(s) (COZAAR) 25 mg ORAL DAILY DULoxetine (CYMBALTA) cap(s) 90 mg 90 mg ORAL DAILY meperidine (PF) 25 mg injection (DEMEROL) 25 mg INTRAVENOUS q 6 H PRN sodium citrate 4% 3-6 mL catheter lock 3-6 mL INTRALUMINAL APHERESIS PRN sodium hypochlorite topical irrigation 0.25% (DAKINS HALF-STRENGTH) IRRIGATION DAILY NaCl 0.9% 10 mL 10 mL INTRAVENOUS q 12 H NaCl 0.9% 20 mL 20 mL INTRAVENOUS PRN carvedilol 12.5 mg tab(s) (COREG) 12.5 mg ORAL BID w MEALS cetirizine 10 mg tab(s) (ZyrTEC) 10 mg ORAL BID NIFEdipine ER 60 mg tab(S) (PROCARDIA XL) 60 mg ORAL DAILY pantoprazole DR 40 mg tab(s) (PROTONIX) 40 mg ORAL DAILY (6 AM) warfarin order for discharge OTHER PRN sodium thiosulfate 25 g in D5W 250 mL 25 g INTRAVENOUS q 1800 hydrocortisone sodium succinate (PF) 100 mg injection (Solu- CORTEF) 100 mg INTRAVENOUS q 6 H PRN diphenhydrAMINE 50 mg (BENADRYL) 50 mg ORAL q 6 H PRN Physical Exam BP 119/88 Pulse 82 Temp 36.9 ?C (98.4 ?F) (Oral) Resp 17 Ht 160 cm (5' 3) Wt 109.7 kg (241 lb 13.5 oz) SpO2 100% BMI 42.84 kg/m? General: no acute distress Neuro: moving all 4 extremities, no gross motor deficits Cardiac: RRR. Normals S1, S2. No gallops. RUSB systolic flow murmur. Pulm: CTA b/l in all lung ceballos. No w/r/c Abd: No distension. Nontender to palpation. Normal bowel sounds. No hepatosplenomegaly Ext:?No lower extremity edema.?2+ radial pulses b/l. See left medial thigh wound below. Left lateral ankle wound with bandage clean/dry/intact Left medial thigh: tenderness with palpation. There is approximately 1cm track. Fluid Balance Intake/Output 07/21/18 0700 - 07/22/18 0659 07/22/18 0700 - 07/23/18 0659 07/23/18 0700 - 07/24/18 0659 07/24/18 07 - 07/25/18 0659 Intake (ml) 1770 1310 776 240 Output (ml) 0 0 0 -- Net (ml) 1770 1310 776 240 Labs CBC: Recent Labs 07/23/18 0514 07/20/18 0513 WBC 3.97 4.49 HB 9.2* 9.4* HCT 29.3* 29.7* PLT 146* 145* MCV 89.1 88.1 RDWCV 15.4* 15.4* COAG: Recent Labs 07/25/18 0438 07/24/18 0353 07/23/18 0514 07/22/18 0220 07/21/18 0437 07/20/1813 07/19/18 0510 INR 2.7* 3.1* 3.5* 3.7* 3.6* 3.3* 3.6* BMP: Recent Labs 07/23/1814 07/20/18 0513 GLUC 109* 71* NA 148* 141 K 4.2 3.9 CHLOR 110* 102 CO2 24 27 ANION 14 12 BUN 16 17 CREAT 1.08* 0.97* CHEM: Recent Labs 07/23/1814 07/20/18512 CA 9.4 9.4 HEPATIC: No results for input(s): ALKPHOS, ALT, AST, TBILI, LIPASE in the last 168 hours. URINALYSIS:No results for input(s): PH, SPGR, UGLUC, UBILI, UKET, UHB, UPROT, UROBIL, UWBC, SSA in the last 168 hours. Invalid input(s): NITR CARDIAC: No results for input(s): CKTEST, CKMB, CKMBP, TROPT, PBNP in the last 168 hours. Assessment and Plan 28 yo F who presented with calciphylaxis related left leg pain on 06/22/19. ? 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 Seizure - on keppra 250mg TID ? # Calciphylaxis -06/26/18 left leg skin biopsy: effaced epidermis, underlying dermis is fibrotic with vertically oriented blood vessels consistent with scar. Within the subcutis, there is extensive calcium deposition within the fat lobules and in the valente of small vessels within the subcutis. Additionally, there is stippled extracellular calcium. Findings compatible with the clinical impression of Calciphylaxis. -Home meds: pamidronate qwk, sodium thiosulfate 12.5 g 3x/wk -Unable to get sodium thiosulfate as an outpatient -Worsening pain ? Plan -Sodium thiosulfate ?- 25g in 250ml D5W infused over 1 hour ?- Monitor Vital signs during infusion given (low) risk of hypotension ?- BMP once per week to check for anion gap metabolic acidosis ?PRN during infusion:?- Acetaminophen 650mg PRN as needed for headache (will premedicate with acetaminophen if headaches are frequent) ?- Diphenhydramine 50 mg IV PRN hypotension, shortness of breath or bronchospasm ?- Meperidine 25 mg Injection PRN for rigors ?- Stop infusion if either hypotension or rigors occur. Solu-cortef 100mg IV and normal saline as needed for hypotension ?- Ondansetron 8 mg IV PRN Nausea/Vomiting (will premedicate with ondansetron if nausea/vomiting frequent) -Dermatology consulted, punch biopsy obtained - sutures will need to be removed -IV pamidronate 30 mg q Monday -Wound care per dermatology: washing with saline wound wash, packing with daikin soaked gauze, gauze and tape ? 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 Has received stenting of IVC and iliacs along with endograft of IVC. - C/B extensive RP bleed s/p L2, L3 embolization. 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 - APS causing hepatic vein thrombosis, caval/ileo/femoral DVT (09/2013) s/p L common/external vein stent placement, IVC thrombectomy, placement of endoglix AFX endograft at inferior vena cava bifurcation and bilateral SFA to saphenous vein fistulas - past surgeries: per notes: 09/18/2013 - IVC thrombectomy; 09/25/2013 - left and right common iliac/external iliac bein stending, Endoglix AFX endograft at the IVC bifurcation placed; 09/26/13 -09/29/13- left and right proximal superficial artery to first branch of greater saphenous vein AV fistula; 10/01/13- femoropopliteal endovascular thrombectomies; 02/02/18: ?ligation of LLE SFA to GSV fistula; 02/12/18: left groin debridement -Home meds: Typically takes 5 mg warfarin daily, except 7.5 mg on the day of PLEX and 1-2 days following ? Plan -warfarin titration, recently supratherapeutic - APAP 650mg PO 4x/day PRN - Cymbalta to 90mg PO qAM - Lyrica 150 mg TID ? #HFrEF #HTN -03/14/18 ILEANA: EF 45%, LV mildly dilated, LA cavity is dilated, 2+ TR, 2-3+ AR, mobile echodensities originating in the SVC extending into the right atrium most consistent with a moderate to large burden or residual thrombus from a prior central venous catheter. No evidence of endocarditis. -05/06 renal venous US showed occlusive thrombus througout the IVC. Minimal venous flow in the kidney -Home meds: losartan 12.5mg daily, nifedipine 60mg daily, torsemide 20mg q8h PRN, carvedilol 12.5mg BID ? Plan -Continue home nifedipine, carvedilol, losartan ? Chronic conditions #Hx seasonal allergies / Hives - Continue home certirizine, Diphenhydramine prn #GERD - Continue home pantoprazole ? # Diet: regular # Dispo:?pending insurance approval ? Lines, Drains, and Airways Line Central Line Single Lumen Tunneled Left Chest -- days Dialysis / Apheresis Double Lumen 03/17/18 1000 Admission to Hospital Tunneled Left Chest 129 days Anticoagulant AND Antiplatelet Medications Start Dose Route Frequency Ordered Stop 07/24/18 1700 warfarin 4 mg tab(s) (COUMADIN) 4 mg ORAL DAILY - WARFARIN 07/24/18 1047 -- Jose Elias Mir M.D. Internal Button Sewing Machine Operator, PGY I NIGHT AND WEEKEND COVERAGE: Days: [phone], [place] [phone] for patient issues. Nights: After 5PM on weekdays and 3PM on weekends, please page [phone]. [facility] STAFF PHYSICIAN NOTE OF PERSONAL INVOLVEMENT IN CARE Chart reviewed, patient examined, and fernandes elements of progress note of the patient confirmed and agree with the documented findings and plan of care. Mckinley Kearns MD FAAP FACP [facility] Internal Medicine-Pediatrics [facility] Medicine/IMPACT Pager: VAURONM Date of Service: July 25, 2018 Time of Service: 1:16 PM PROTIME Collected: 07/25/2018 Status: F Source: [place] 4:38 AM [facility] REPOSITORY TYPE CODE TESTS RESULT OUT OF RANGE REFERENCE UNITS LAB PSEC 9.7-13.0 sec High PT Sec 26.7 LAB INR 0.9-1.3 High PT INR 2.7 Result Comment: Vitamin K Antagonist (VKA) Therapeutic Range: INR 2 to 3 (Target INR of 2.5) Note: For patients treated with VKA drugs, such as warfarin, the [employer] 2012 Guideline recommends [...] Chest 2012, 141:7S-47S Diogenes RA, et al. [facility] 2017, 70: 252-289 Performed By: #### PT #### [facility] [address] [place], [place] [address] NUTRITION Observed: 07/24/2018 Status: COMPLETED Source: [place] 1:56 PM [facility] REPOSITORY HNO ID: [id number] Author: Anahi Bang-T) Sergei Service: Nutrition Therapy Author Type: Protective Signal Installer Helper Type: Nutrition Filed: 07/24/2018 1:58 PM Note Text: NUTRITION THERAPY FOLLOW-UP NOTE SERVICE DATE: 07/24/2018 SERVICE TIME: 950 Anthropometrics: Height: 160 cm (5' 3) Current Weight: Weight: 109.7 kg (241 lb 13.5 oz) Body mass index is 42.84 kg/m?. Loss of lean body mass/visual muscle wasting: no Admitting Diagnosis: Calciphylaxis of left lower extremity with nonhealing ulcer with fat layer exposed (HCC) [E83.59, L97.922] Present Diet Order: Regular and Fluid restriction of 1400ml/day Is the patient having any pain that [...] 100% Patient concerns/Issues: The patient states she has been eating well. She denied any issues or concerns. She does not purchase any fluids with the vouchers. Snacks and supplements were declined. Will continue to monitor. Nursing Admission Assessment Malnutrition Score Tool: 1 Plan of Care: Recommendation No problems noted at this time. Will screen again within 7 days Discharge Plan: Home on diet as ordered MNT Billing Type: Routine Care/15 min 1 unit SIGNATURE: Anahi Mai DTR CDM PATIENT NAME: Paloma Cannon DATE: July 24, 2018 TIME: 1:56 PM PAGER: [phone] CASE MANAGEM Observed: 07/24/2018 Status: COMPLETED Source: [place] 12:38 PM [facility] REPOSITORY HNO ID: [id number] Author: Jacinta Aguilar (Rn) JEFF Olmedo Service: Care Management Author Type: Registered Nurse Type: Care Mgt Progress Note Filed: 07/24/2018 12:41 PM Note Text: CARE MANAGEMENT PROGRESS NOTE SERVICE DATE: 07/24/2018 SERVICE TIME: 12:38 PM LOS: 31 days Needs Prior to Discharge: Insurance Authorization (scheduling to infusion center) Dc date TBD. Ltac referral sent to Kelly Aguilera for review at request of [employer] if na thiosulfate could be covered And administered at that level of care. Discharge plan update provided to CM wastewater project manager yesterday. Current on 2LO2/nc. Has Home O2 2l/NC form [facility]. Awaiting approval of pamidronate in addition to na thiosulfate ( denied coverage) by insurance,and possible scheduling at [facility] OP infusion center rather than [facility] at pt request .Dermatology would arrange. PT recs OP PT . Prior. This CM Had received call from OP CM Elsa (p) [phone] stating at last dc pt was to have OP Infusion at [facility], but she was unaware that (per primary team) prior appeal for the na thiosulfate was denied by insurance. She will continue to follow for OP planning . She also stated at last dc [employer] rep. (who was in charge of authorizing) had confirmed the infusion facility. CM to continue to follow SIGNATURE: Jacinta Olmedo RN PATIENT NAME: Paloma Cannon DATE: July 24, 2018 TIME: 12:38 PM PAGER/CONTACT #: [phone] PROGRESS Observed: 07/24/2018 Status: COMPLETED Source: [place] 6:48 AM [facility] REPOSITORY HNO ID: [id number] Author: Mckinley Kearns Service: General Internal Medicine Author Type: Physician Type: Progress Notes Filed: 07/24/2018 6:32 PM Note Text: Medicine [place] - Vipul Terry Progress Note PATIENT NAME: Paloma Cannon Service date and time: 07/24/2018, 6:48 AM Admit Date Length of stay: 06/22/2018 31 day(s) Plan for Today -Warfarin 4mg -continue sodium thiosulfate (T-Th-Sa, last dose 07/19) + pamidronate (qwk, last dose 07/20)?for calciphylaxis -continue APAP, duloxetine, pregabalin for pain control. -carvedilol, losartan, nifedipine, torsemide PRN -pending insurance coverage for pamidronate Interval Events -No acute overnight events. Reviewed nursing notes. -Pain well controlled. -vitals: afebrile (Tmax 37.1), HR 80-88, RR 17-18, BP 99/56?123/71 (stable), SpO2 97-98 on 2L NC -07/24 INR 3.1 -CM update: Awaiting approval of pamidronate, Na thiosulfate denied coverage) by insurance, and scheduling at [facility] OP infusion center rather than [facility] at pt request -yesterday received PLEX Medications Current hospital medications: calcium gluconate 300 mg injection 300 mg INTRAVENOUS APHERESIS PRN calcium carbonate 1,000 mg chewable tab(s) (TUMS) 1,000 mg ORAL APHERESIS PRN calcium gluconate 300 mg injection 300 mg INTRAVENOUS APHERESIS PRN calcium carbonate 1,000 mg chewable tab(s) (TUMS) 1,000 mg ORAL APHERESIS PRN HYDROmorphone 2 mg tab(s) (DILAUDID) 2 mg ORAL DAILY PRN pregabalin 150 mg cap(s) (LYRICA) 150 mg ORAL TID diphenhydrAMINE 50 mg injection (BENADRYL) 50 mg INTRAVENOUS APHERESIS PRN hydrocortisone sodium succinate (PF) 200 mg injection (Solu- CORTEF) 200 mg INTRAVENOUS APHERESIS PRN sodium citrate 4% 3-6 mL catheter lock 3-6 mL INTRALUMINAL APHERESIS PRN miconazole 2 % 1 application topical powder (LOTRIMIN AF, DESENEX) 1 application TOPICAL BID pamidronate 30 mg in NaCl 0.9% 1,000 mL (AREDIA) 30 mg INTRAVENOUS q 1 WEEK acetaminophen 650 mg tab(s) (TYLENOL) 650 mg ORAL q 6 H PRN losartan 25 mg tab(s) (COZAAR) 25 mg ORAL DAILY DULoxetine (CYMBALTA) cap(s) 90 mg 90 mg ORAL DAILY meperidine (PF) 25 mg injection (DEMEROL) 25 mg INTRAVENOUS q 6 H PRN sodium citrate 4% 3-6 mL catheter lock 3-6 mL INTRALUMINAL APHERESIS PRN sodium hypochlorite topical irrigation 0.25% (DAKINS HALF-STRENGTH) IRRIGATION DAILY NaCl 0.9% 10 mL 10 mL INTRAVENOUS q 12 H NaCl 0.9% 20 mL 20 mL INTRAVENOUS PRN carvedilol 12.5 mg tab(s) (COREG) 12.5 mg ORAL BID w MEALS cetirizine 10 mg tab(s) (ZyrTEC) 10 mg ORAL BID NIFEdipine ER 60 mg tab(S) (PROCARDIA XL) 60 mg ORAL DAILY pantoprazole DR 40 mg tab(s) (PROTONIX) 40 mg ORAL DAILY (6 AM) warfarin order for discharge OTHER PRN sodium thiosulfate 25 g in D5W 250 mL 25 g INTRAVENOUS q 1800 ondansetron (PF) 4 mg injection (ZOFRAN) 4 mg INTRAVENOUS q 8 H PRN hydrocortisone sodium succinate (PF) 100 mg injection (Solu- CORTEF) 100 mg INTRAVENOUS q 6 H PRN diphenhydrAMINE 50 mg (BENADRYL) 50 mg ORAL q 6 H PRN Physical Exam BP 116/69 Pulse 80 Temp 36.7 ?C (98.1 ?F) (Oral) Resp 18 Ht 160 cm (5' 3) Wt 109.7 kg (241 lb 13.5 oz) SpO2 97% BMI 42.84 kg/m? General: no acute distress Neuro: moving all 4 extremities, no gross motor deficits Cardiac: RRR. Normals S1, S2. No gallops or murmurs. Pulm: CTA b/l in all lung ceballos. No w/r/c Abd: No distension. Nontender to palpation. Normal bowel sounds. No hepatosplenomegaly Ext:?No lower extremity edema.?2+ radial pulses b/l. Left medial thigh wound w/ dressing clean/dry/intact. Left lateral ankle wound with bandage clean/dry/intact Fluid Balance Intake/Output 07/20/18 0700 - 07/21/18 0659 07/21/18 0700 - 07/22/18 0659 07/22/18 0700 - 07/23/18 0659 07/23/18 0700 - 07/24/18 0659 Intake (ml) 820 1770 1310 776 Output (ml) -- 0 0 0 Net (ml) 820 1770 1310 776 Labs CBC: Recent Labs 07/23/18 0514 07/20/18 0513 WBC 3.97 4.49 HB 9.2* 9.4* HCT 29.3* 29.7* PLT 146* 145* MCV 89.1 88.1 RDWCV 15.4* 15.4* COAG: Recent Labs 07/24/18 0353 07/23/18 0514 07/22/18 0220 07/21/18 0437 07/20/18 0513 07/19/18 0510 07/18/18 0524 INR 3.1* 3.5* 3.7* 3.6* 3.3* 3.6* 4.1* BMP: Recent Labs 07/23/18 0514 07/20/18 0513 GLUC 109* 71* NA 148* 141 K 4.2 3.9 CHLOR 110* 102 CO2 24 27 ANION 14 12 BUN 16 17 CREAT 1.08* 0.97* CHEM: Recent Labs 07/23/18 0514 07/20/18 0513 CA 9.4 9.4 HEPATIC: No results for input(s): ALKPHOS, ALT, AST, TBILI, LIPASE in the last 168 hours. URINALYSIS:No results for input(s): PH, SPGR, UGLUC, UBILI, UKET, UHB, UPROT, UROBIL, UWBC, SSA in the last 168 hours. Invalid input(s): NITR CARDIAC: No results for input(s): CKTEST, CKMB, CKMBP, TROPT, PBNP in the last 168 hours. Assessment and Plan 28 yo F who presented with calciphylaxis related left leg pain on 06/22/19. ? 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 Seizure - on keppra 250mg TID ? # Calciphylaxis -06/26/18 left leg skin biopsy: effaced epidermis, underlying dermis is fibrotic with vertically oriented blood vessels consistent with scar. Within the subcutis, there is extensive calcium deposition within the fat lobules and in the valente of small vessels within the subcutis. Additionally, there is stippled extracellular calcium. Findings compatible with the clinical impression of Calciphylaxis. -Home meds: pamidronate qwk, sodium thiosulfate 12.5 g 3x/wk -Unable to get sodium thiosulfate as an outpatient -Worsening pain ? Plan -Sodium thiosulfate ?- 25g in 250ml D5W infused over 1 hour ?- Monitor Vital signs during infusion given (low) risk of hypotension ?- BMP once per week to check for anion gap metabolic acidosis ?PRN during infusion:?- Acetaminophen 650mg PRN as needed for headache (will premedicate with acetaminophen if headaches are frequent) ?- Diphenhydramine 50 mg IV PRN hypotension, shortness of breath or bronchospasm ?- Meperidine 25 mg Injection PRN for rigors ?- Stop infusion if either hypotension or rigors occur. Solu-cortef 100mg IV and normal saline as needed for hypotension ?- Ondansetron 8 mg IV PRN Nausea/Vomiting (will premedicate with ondansetron if nausea/vomiting frequent) -Pain management recs: weaning Dilaudid. Methadone d/c'd -Dermatology consulted, punch biopsy obtained - sutures will need to be removed -IV pamidronate 30 mg q Monday -Wound care per dermatology: washing with saline wound wash, packing with daikin soaked gauze, gauze and tape - PLEX 07/23/18, q2wk ? 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 Has received stenting of IVC and iliacs along with endograft of IVC. - C/B extensive RP bleed s/p L2, L3 embolization. 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 - APS causing hepatic vein thrombosis, caval/ileo/femoral DVT (09/2013) s/p L common/external vein stent placement, IVC thrombectomy, placement of endoglix AFX endograft at inferior vena cava bifurcation and bilateral SFA to saphenous vein fistulas - past surgeries: per notes: 09/18/2013 - IVC thrombectomy; 09/25/2013 - left and right common iliac/external iliac bein stending, Endoglix AFX endograft at the IVC bifurcation placed; 09/26/13 -09/29/13- left and right proximal superficial artery to first branch of greater saphenous vein AV fistula; 10/01/13- femoropopliteal endovascular thrombectomies; 02/02/18: ?ligation of LLE SFA to GSV fistula; 02/12/18: left groin debridement -Home meds: Typically takes 5 mg warfarin daily, except 7.5 mg on the day of PLEX and 1-2 days following ? Plan -warfarin titration, recently supratherapeutic - APAP 650mg PO 4x/day PRN - Cymbalta to 90mg PO qAM - Lyrica 150 mg TID ? #HFrEF #HTN -03/14/18 ILEANA: EF 45%, LV mildly dilated, LA cavity is dilated, 2+ TR, 2-3+ AR, mobile echodensities originating in the SVC extending into the right atrium most consistent with a moderate to large burden or residual thrombus from a prior central venous catheter. No evidence of endocarditis. -05/06 renal venous US showed occlusive thrombus througout the IVC. Minimal venous flow in the kidney -Home meds: losartan 12.5mg daily, nifedipine 60mg daily, torsemide 20mg q8h PRN, carvedilol 12.5mg BID ? Plan -Continue home nifedipine, carvedilol, losartan ? Chronic conditions #Hx seasonal allergies / Hives - Continue home certirizine, Diphenhydramine prn #GERD - Continue home pantoprazole ? # Diet: regular # Dispo:?pending insurance approval Lines, Drains, and Airways Line Central Line Single Lumen Tunneled Left Chest -- days Dialysis / Apheresis Double Lumen 03/17/18 1000 Admission to Hospital Tunneled Left Chest 128 days Jose Elias Mir M.D. Internal Button Sewing Machine Operator, PGY I NIGHT AND WEEKEND COVERAGE: Days: [phone], please page me [phone] for patient issues. Nights: After 5PM on weekdays and 3PM on weekends, please page [phone]. [facility] STAFF PHYSICIAN NOTE OF PERSONAL INVOLVEMENT IN CARE Chart reviewed, patient examined, and fernandes elements of progress note of the patient confirmed and agree with the documented findings and plan of care. Mckinley Kearns MD FAAP FACP [facility] Internal Medicine-Pediatrics [facility] Medicine/IMPACT Pager: VAURONM Date of Service: July 24, 2018 Time of Service: 6:32 PM PROTIME Collected: 07/24/2018 Status: F Source: [place] 3:53 AM [facility] REPOSITORY TYPE CODE TESTS RESULT OUT OF RANGE REFERENCE UNITS LAB PSEC 9.7-13.0 sec High PT Sec 30.1 LAB INR 0.9-1.3 High PT INR 3.1 Result Comment: Vitamin K Antagonist (VKA) Therapeutic Range: INR 2 to 3 (Target INR of 2.5) Note: For patients treated with VKA drugs, such as warfarin, the [employer] 2012 Guideline recommends [...] Chest 2012, 141:7S-47S Diogenes RESENDIZ et al. [facility] 2017, 70: 252-289 Performed By: #### PT #### [facility] [address] [address] PROGRESS Observed: 07/23/2018 Status: COMPLETED Source: [place] 8:05 PM [facility] REPOSITORY HNO ID: [id number] Author: Mckinley Kearns Service: General Internal Medicine Author Type: Physician Type: Progress Notes Filed: 07/23/2018 8:22 PM Note Text: Medicine [place] - Vipul Terry Progress Note PATIENT NAME: Paloma Cannon Service date and time: 07/23/2018, 8:06 PM Admit Date Length of stay: 06/22/2018 30 day(s) Plan for Today -PLEX today -Warfarin 5mg -continue sodium thiosulfate (T-Th-Sa, last dose 07/19) + pamidronate (qwk, last dose 07/20)?for calciphylaxis -continue APAP, duloxetine, pregabalin for pain control. -carvedilol, losartan, nifedipine, torsemide PRN -pending insurance coverage for pamidronate Interval Events -No acute overnight events. Reviewed nursing notes. -Pain well controlled, no complaints -VSS -INR 3.5 -electrolytes wnl Medications Current hospital medications: calcium gluconate 300 mg injection 300 mg INTRAVENOUS APHERESIS PRN calcium carbonate 1,000 mg chewable tab(s) (TUMS) 1,000 mg ORAL APHERESIS PRN calcium gluconate 300 mg injection 300 mg INTRAVENOUS APHERESIS PRN calcium carbonate 1,000 mg chewable tab(s) (TUMS) 1,000 mg ORAL APHERESIS PRN HYDROmorphone 2 mg tab(s) (DILAUDID) 2 mg ORAL DAILY PRN pregabalin 150 mg cap(s) (LYRICA) 150 mg ORAL TID diphenhydrAMINE 50 mg injection (BENADRYL) 50 mg INTRAVENOUS APHERESIS PRN hydrocortisone sodium succinate (PF) 200 mg injection (Solu- CORTEF) 200 mg INTRAVENOUS APHERESIS PRN sodium citrate 4% 3-6 mL catheter lock 3-6 mL INTRALUMINAL APHERESIS PRN miconazole 2 % 1 application topical powder (LOTRIMIN AF, DESENEX) 1 application TOPICAL BID pamidronate 30 mg in NaCl 0.9% 1,000 mL (AREDIA) 30 mg INTRAVENOUS q 1 WEEK acetaminophen 650 mg tab(s) (TYLENOL) 650 mg ORAL q 6 H PRN losartan 25 mg tab(s) (COZAAR) 25 mg ORAL DAILY DULoxetine (CYMBALTA) cap(s) 90 mg 90 mg ORAL DAILY meperidine (PF) 25 mg injection (DEMEROL) 25 mg INTRAVENOUS q 6 H PRN sodium citrate 4% 3-6 mL catheter lock 3-6 mL INTRALUMINAL APHERESIS PRN sodium hypochlorite topical irrigation 0.25% (DAKINS HALF-STRENGTH) IRRIGATION DAILY NaCl 0.9% 10 mL 10 mL INTRAVENOUS q 12 H NaCl 0.9% 20 mL 20 mL INTRAVENOUS PRN carvedilol 12.5 mg tab(s) (COREG) 12.5 mg ORAL BID w MEALS cetirizine 10 mg tab(s) (ZyrTEC) 10 mg ORAL BID NIFEdipine ER 60 mg tab(S) (PROCARDIA XL) 60 mg ORAL DAILY pantoprazole DR 40 mg tab(s) (PROTONIX) 40 mg ORAL DAILY (6 AM) warfarin order for discharge OTHER PRN sodium thiosulfate 25 g in D5W 250 mL 25 g INTRAVENOUS q 1800 ondansetron (PF) 4 mg injection (ZOFRAN) 4 mg INTRAVENOUS q 8 H PRN hydrocortisone sodium succinate (PF) 100 mg injection (Solu- CORTEF) 100 mg INTRAVENOUS q 6 H PRN diphenhydrAMINE 50 mg (BENADRYL) 50 mg ORAL q 6 H PRN Physical Exam BP 115/72 Pulse 84 Temp 36.7 ?C (98.1 ?F) (Oral) Resp 17 Ht 160 cm (5' 3) Wt 111.7 kg (246 lb 4.1 oz) SpO2 98% BMI 43.62 kg/m? General: no acute distress Neuro: moving all 4 extremities, no gross motor deficits Cardiac: RRR. Normals S1, S2. No gallops or murmurs. Pulm: CTA b/l in all lung ceballos. No w/r/c Abd: No distension. Nontender to palpation. Normal bowel sounds. No hepatosplenomegaly Ext:?No lower extremity edema.?2+ radial pulses b/l. Left medial thigh wound w/ dressing clean/dry/intact. Left lateral ankle wound with bandage clean/dry/intact Fluid Balance Intake/Output 07/19/18 0700 - 07/20/18 0659 07/20/18 0700 - 07/21/18 0659 07/21/18 0700 - 07/22/18 0659 07/22/18 0700 - 07/23/18 0659 07/23/18 0700 - 07/24/18 0659 Intake (ml) 9436 208 5080 1310 236 Output (ml) 0 -- 0 0 0 Net (ml) 9812 701 1281 1310 236 Labs CBC: Recent Labs 07/23/18 0514 07/20/18 0513 07/17/18 0431 WBC 3.97 4.49 4.11 HB 9.2* 9.4* 9.4* HCT 29.3* 29.7* 30.2* PLT 146* 145* 118* MCV 89.1 88.1 88.6 RDWCV 15.4* 15.4* 15.5* COAG: Recent Labs 07/23/18 0514 07/22/18 0220 07/21/18 0437 07/20/18 0513 07/19/18 0510 07/18/18 0524 INR 3.5* 3.7* 3.6* 3.3* 3.6* 4.1* BMP: Recent Labs 07/23/18513 07/20/18 0513 07/17/18 0431 GLUC 109* 71* 133* NA 148* 141 140 K 4.2 3.9 3.5* CHLOR 110* 102 96* CO2 24 27 31* ANION 14 12 13 BUN 16 17 23* CREAT 1.08* 0.97* 1.10* CHEM: Recent Labs 07/23/18 0514 07/20/18 0513 07/17/18 0431 CA 9.4 9.4 8.6 HEPATIC: No results for input(s): ALKPHOS, ALT, AST, TBILI, LIPASE in the last 168 hours. URINALYSIS:No results for input(s): PH, SPGR, UGLUC, UBILI, UKET, UHB, UPROT, UROBIL, UWBC, SSA in the last 168 hours. Invalid input(s): NITR CARDIAC: No results for input(s): CKTEST, CKMB, CKMBP, TROPT, PBNP in the last 168 hours. Assessment and Plan 28 yo F who presented with calciphylaxis related left leg pain on 06/22/19. ? 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 Seizure - on keppra 250mg TID ? # Calciphylaxis -06/26/18 left leg skin biopsy: effaced epidermis, underlying dermis is fibrotic with vertically oriented blood vessels consistent with scar. Within the subcutis, there is extensive calcium deposition within the fat lobules and in the valente of small vessels within the subcutis. Additionally, there is stippled extracellular calcium. Findings compatible with the clinical impression of Calciphylaxis. -Home meds: pamidronate qwk, sodium thiosulfate 12.5 g 3x/wk -Unable to get sodium thiosulfate as an outpatient -Worsening pain ? Plan -Sodium thiosulfate ?- 25g in 250ml D5W infused over 1 hour ?- Monitor Vital signs during infusion given (low) risk of hypotension ?- BMP once per week to check for anion gap metabolic acidosis ?PRN during infusion:?- Acetaminophen 650mg PRN as needed for headache (will premedicate with acetaminophen if headaches are frequent) ?- Diphenhydramine 50 mg IV PRN hypotension, shortness of breath or bronchospasm ?- Meperidine 25 mg Injection PRN for rigors ?- Stop infusion if either hypotension or rigors occur. Solu-cortef 100mg IV and normal saline as needed for hypotension ?- Ondansetron 8 mg IV PRN Nausea/Vomiting (will premedicate with ondansetron if nausea/vomiting frequent) -Pain management recs: weaning Dilaudid. Methadone d/c'd -Dermatology consulted, punch biopsy obtained - sutures will need to be removed -IV pamidronate 30 mg q Monday -Wound care per dermatology: washing with saline wound wash, packing with daikin soaked gauze, gauze and tape - PLEX 07/23/18, q2wk ? 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 Has received stenting of IVC and iliacs along with endograft of IVC. - C/B extensive RP bleed s/p L2, L3 embolization. 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 - APS causing hepatic vein thrombosis, caval/ileo/femoral DVT (09/2013) s/p L common/external vein stent placement, IVC thrombectomy, placement of endoglix AFX endograft at inferior vena cava bifurcation and bilateral SFA to saphenous vein fistulas - past surgeries: per notes: 09/18/2013 - IVC thrombectomy; 09/25/2013 - left and right common iliac/external iliac bein stending, Endoglix AFX endograft at the IVC bifurcation placed; 09/26/13 -09/29/13- left and right proximal superficial artery to first branch of greater saphenous vein AV fistula; 10/01/13- femoropopliteal endovascular thrombectomies; 02/02/18: ?ligation of LLE SFA to GSV fistula; 02/12/18: left groin debridement -Home meds: Typically takes 5 mg warfarin daily, except 7.5 mg on the day of PLEX and 1-2 days following ? Plan -warfarin titration, recently supratherapeutic - APAP 650mg PO 4x/day PRN - Cymbalta to 90mg PO qAM - Lyrica 150 mg TID ? #HFrEF #HTN -03/14/18 ILEANA: EF 45%, LV mildly dilated, LA cavity is dilated, 2+ TR, 2-3+ AR, mobile echodensities originating in the SVC extending into the right atrium most consistent with a moderate to large burden or residual thrombus from a prior central venous catheter. No evidence of endocarditis. -05/06 renal venous US showed occlusive thrombus througout the IVC. Minimal venous flow in the kidney -Home meds: losartan 12.5mg daily, nifedipine 60mg daily, torsemide 20mg q8h PRN, carvedilol 12.5mg BID ? Plan -Continue home nifedipine, carvedilol, losartan ? Chronic conditions #Hx seasonal allergies / Hives - Continue home certirizine, Diphenhydramine prn #GERD - Continue home pantoprazole ? # Diet: regular # Dispo:?pending insurance approval Lines, Drains, and Airways Line Central Line Single Lumen Tunneled Left Chest -- days Dialysis / Apheresis Double Lumen 03/17/18 1000 Admission to Hospital Tunneled Left Chest 128 days Jose Elias Mir M.D. Internal Button Sewing Machine Operator, PGY I NIGHT AND WEEKEND COVERAGE: Days: [phone], please page me [phone] for patient issues. Nights: After 5PM on weekdays and 3PM on weekends, please page [phone]. [facility] STAFF PHYSICIAN NOTE OF PERSONAL INVOLVEMENT IN CARE Chart reviewed, patient examined, and fernandes elements of progress note of the patient confirmed and agree with the documented findings and plan of care. Care Coordination Received verbal and written sign-out by Dr. Crews. Awaiting D/C ensuring she has coverage for STS and bisphosphonate as o/p. Mckinley Kearns MD FAAP FACP [facility] Internal Medicine-Pediatrics Hospital Medicine/IMPACT Pager: VAURONM Date of Service: July 23, 2018 Time of Service: 8:21 PM PROCEDURE Observed: 07/23/2018 Status: COMPLETED Source: [place] 1:54 PM [facility] REPOSITORY HNO ID: [id number] Author: Lisseth Claudio MD Service: Apheresis Author Type: Physician Type: Procedures Filed: 07/23/2018 3:48 PM Note Text: APHERESIS THERAPEUTIC PROCEDURE NOTE SERVICE DATE: 07/23/2018 SERVICE TIME: 13:40 TREATMENT #: 102. Pre-treatment labs drawn: No PLAN Next treatment- 08/06/2018 : 1990 Age: [age] year old Gender: female Patient identification confirmed patient and birthdate Apheresis Requested By: Hematology Diagnosis: CAPS Treatment Procedure: Plasmapheresis Protocol: N/A LABS Recent Labs 07/23/18 0514 WBC 3.97 HB 9.2* HCT 29.3* PLT 146* INR 3.5* BUN 16 CREAT 1.08* CA 9.4 INTERVAL HISTORY: Patient reports feeling well. All questions answered. PRE-TREATMENT BP 122/65 Pulse 88 Temp 36.7 ?C (98.1 ?F) (Oral) Resp 17 Ht 160 cm (5' 3) Wt 111.7 kg (246 lb 4.1 oz) SpO2 98% BMI 43.62 kg/m? Treatment performed at: Unit/[facility]- [id number] Date: 07/23/2018 Catheter Site Dressing: Dry and intact. Venous access: left SC double lumen catheter - draw from the blue lumen, venous return: left C double lumen catheter - return into the red lumen. TREATMENT PARAMETER DATA Whole blood processed: 5339 ml Volume removed: 3194 ml Volume replaced: 5% Albumin 2000 ml and NSS 1000 ml ACD used: 360 ml Calcium gluconate 10%: 0 ml Extra fluids: none given. Net fluid balance: + 25 ml POST-TREATMENT Vital signs: BP 120/59 HR 87 RR 20 TEMP 98.3 F Labs Drawn: None At completion of treatment: red and blue Lumen flushed with 10 ml NSS and red and blue Lumen flushed with 3 ml 4% sodium citrate Patient tolerated treatment well without complications: Yes Patient instructed to continue abundant oral fluids. Report given to unit nurse. Patient remains in hospital bed. Treatment Started by Apheresis Nurse: Willie Avery RN Treatment Completed by Apheresis Nurse: Willie Avery RN [facility] STAFF PHYSICIAN NOTE OF PERSONAL INVOLVEMENT IN [...] the treatment. Signature: Lisseth Claudio MD July 23, 2018 3:47 PM Pager: [phone] CASE MANAGEM Observed: 07/23/2018 Status: COMPLETED Source: [place] 9:53 AM [facility] REPOSITORY HNO ID: [id number] Author: Jacinta Aguilar (Rn) JEFF Olmedo Service: Care Management Author Type: Registered Nurse Type: Care Mgt Progress Note Filed: 07/23/2018 9:53 AM Note Text: CARE MANAGEMENT PROGRESS NOTE SERVICE DATE: 07/23/2018 SERVICE TIME: 9:53 AM LOS: 30 days Needs Prior to Discharge: Insurance Authorization (scheduling to infusion center) DC date tbd. Per EMR, Still Awaiting approval of pamidronate na thiosulfate denied coverage) by insurance, and scheduling at [facility] OP infusion center rather than [facility] at pt request. (Oncology/dermatology arranging). PT recs OP PT. CM to continue to follow SIGNATURE: Jacinta Olmedo RN PATIENT NAME: Paloma Cannon DATE: July 23, 2018 TIME: 9:53 AM PAGER/CONTACT #: [phone] CBC Collected: 07/23/2018 Status: F Source: [place] 5:14 AM [facility] REPOSITORY TYPE CODE TESTS RESULT OUT OF REFERENCE UNITS RANGE LAB WBC 3.70-11.00 k/uL WBC 3.97 LAB RBC 3.90-5.20 m/uL Low RBC 3.29 LAB HGB 11.5-15.5 g/dL Low Hemoglobin 9.2 LAB HCT 36.0-46.0 % Low Hematocrit 29.3 LAB MCV 80.0-100.0 fL MCV 89.1 LAB MCH 26.0-34.0 pG MCH 28.0 LAB MCHC 30.5-36.0 g/dL MCHC 31.4 LAB RDWCV 11.5-15.0 % RDW-CV High 15.4 LAB PLTCT 150-400 k/uL Low Platelet Count 146 LAB MPV 9.0-12.7 fL MPV 9.6 LAB ABSNUC <0.01 k/uL Absolute nRBC <0.01 Performed By: #### CBC, PT, BMP #### [facility] [address] [place], [place] [address] PROTIME Collected: 07/23/2018 Status: F Source: [place] 5:14 AM [facility] REPOSITORY TYPE CODE TESTS RESULT OUT OF RANGE REFERENCE UNITS LAB PSEC 9.7-13.0 sec High PT Sec 34.0 LAB INR 0.9-1.3 High PT INR 3.5 Result Comment: Vitamin K Antagonist (VKA) Therapeutic Range: INR 2 to 3 (Target INR of 2.5) Note: For patients treated with VKA drugs, such as warfarin, the [place] 2012 Guideline recommends [...] Chest 2012, 141:7S-47S Diogenes RA, et al. [facility] 2017, 70: 252-289 Performed By: #### CBC, PT, BMP #### [facility] [address] [place], [place] [address] BASIC METABOLIC PANL Collected: 07/23/2018 Status: F Source: [place] 5:14 AM [facility] REPOSITORY TYPE CODE TESTS RESULT OUT OF REFERENCE UNITS RANGE LAB GLU 74-99 mg/dL High Glucose 109 Result Comment: The [place] [employer] (ADA) provides guidance for cutoff [...] Standards of Medical Care in Diabetes 2016, [place] [employer]. Diabetes Care. 2016.39(Suppl 1). LAB BUN 7-21 mg/dL BUN 16 LAB CRET 0.58-0.96 mg/dL Creatinine High 1.08 LAB NA 136-144 mmol/L Sodium High 148 LAB K 3.7-5.1 mmol/L Potassium 4.2 LAB CL 97-105 mmol/L Chloride High 110 LAB CO2 22-30 mmol/L CO2 24 LAB AGAP 9-18 mmol/L Anion Gap 14 LAB CA 8.5-10.2 mg/dL Calcium, Total 9.4 LAB GFRAA eGFR- Amer. >60 LAB GFRNAA [...] actual GFR. Performed By: #### CBC, PT, BMP #### [facility] [address] [place] [id number] PROGRESS Observed: 07/22/2018 Status: COMPLETED Source: [place] 12:55 PM [facility] REPOSITORY HNO ID: [id number] Author: Steve Crews Service: General Internal Medicine Author Type: Physician Type: Progress Notes Filed: 07/22/2018 2:45 PM Note Text: Medicine [place] - [facility] Terry Progress Note PATIENT NAME: Paloma Cannon Service date and time: 07/22/2018, 6:44 AM Admit Date Length of stay: 06/22/2018 29 day(s) Plan for Today - Titrating warfarin, goal INR 2-3 - Continue sodium thiosulfate, pamidronate - PLEX Monday Interval Events - No acute events - INR 3.7 Medications Current hospital medications: [START ON 07/23/2018] warfarin 2.5 mg tab(s) (COUMADIN) 2.5 mg ORAL/FEEDING TUBE DAILY - WARFARIN calcium gluconate 300 mg injection 300 mg INTRAVENOUS APHERESIS PRN calcium carbonate 1,000 mg chewable tab(s) (TUMS) 1,000 mg ORAL APHERESIS PRN HYDROmorphone 2 mg tab(s) (DILAUDID) 2 mg ORAL DAILY PRN pregabalin 150 mg cap(s) (LYRICA) 150 mg ORAL TID diphenhydrAMINE 50 mg injection (BENADRYL) 50 mg INTRAVENOUS APHERESIS PRN hydrocortisone sodium succinate (PF) 200 mg injection (Solu- CORTEF) 200 mg INTRAVENOUS APHERESIS PRN sodium citrate 4% 3-6 mL catheter lock 3-6 mL INTRALUMINAL APHERESIS PRN miconazole 2 % 1 application topical powder (LOTRIMIN AF, DESENEX) 1 application TOPICAL BID pamidronate 30 mg in NaCl 0.9% 1,000 mL (AREDIA) 30 mg INTRAVENOUS q 1 WEEK acetaminophen 650 mg tab(s) (TYLENOL) 650 mg ORAL q 6 H PRN losartan 25 mg tab(s) (COZAAR) 25 mg ORAL DAILY DULoxetine (CYMBALTA) cap(s) 90 mg 90 mg ORAL DAILY meperidine (PF) 25 mg injection (DEMEROL) 25 mg INTRAVENOUS q 6 H PRN sodium citrate 4% 3-6 mL catheter lock 3-6 mL INTRALUMINAL APHERESIS PRN sodium hypochlorite topical irrigation 0.25% (DAKINS HALF-STRENGTH) IRRIGATION DAILY NaCl 0.9% 10 mL 10 mL INTRAVENOUS q 12 H NaCl 0.9% 20 mL 20 mL INTRAVENOUS PRN NaCl 0.9% 2-10 mL 2-10 mL INTRAVENOUS q 12 H carvedilol 12.5 mg tab(s) (COREG) 12.5 mg ORAL BID w MEALS cetirizine 10 mg tab(s) (ZyrTEC) 10 mg ORAL BID NIFEdipine ER 60 mg tab(S) (PROCARDIA XL) 60 mg ORAL DAILY pantoprazole DR 40 mg tab(s) (PROTONIX) 40 mg ORAL DAILY (6 AM) warfarin order for discharge OTHER PRN sodium thiosulfate 25 g in D5W 250 mL 25 g INTRAVENOUS q 1800 ondansetron (PF) 4 mg injection (ZOFRAN) 4 mg INTRAVENOUS q 8 H PRN hydrocortisone sodium succinate (PF) 100 mg injection (Solu- CORTEF) 100 mg INTRAVENOUS q 6 H PRN diphenhydrAMINE 50 mg (BENADRYL) 50 mg ORAL q 6 H PRN Physical Exam BP 110/62 Pulse 88 Temp 36.6 ?C (97.8 ?F) (Oral) Resp 18 Ht 160 cm (5' 3) Wt 112.5 kg (248 lb 0.3 oz) SpO2 99% BMI 43.93 kg/m? Lines, Drains, and Airways Line Central Line Single Lumen Tunneled Left Chest -- days Dialysis / Apheresis Double Lumen 03/17/18 1000 Admission to Hospital Tunneled Left Chest 127 days General: no acute distress Neuro: moving all 4 extremities, no gross motor deficits Cardiac: RRR. Normals S1, S2. No gallops or murmurs. Pulm: CTA b/l in all lung ceballos. No w/r/c Abd: No distension. Nontender to palpation. Normal bowel sounds. No hepatosplenomegaly Ext:?No lower extremity edema.?2+ radial pulses b/l. Left medial thigh wound w/ dressing clean/dry/intact Fluid Balance Intake/Output 07/18/18 0700 - 07/19/18 0659 07/19/18 0700 - 07/20/18 0659 07/20/18 0700 - 07/21/18 0659 07/21/18 07 - 07/22/18 0659 Intake (ml) 10 6996 799 6896 Output (ml) -- 0 -- 0 Net (ml) 10 [phone] Labs CBC: Recent Labs 07/20/18 0513 07/17/18 0431 WBC 4.49 4.11 HB 9.4* 9.4* HCT 29.7* 30.2* PLT 145* 118* MCV 88.1 88.6 RDWCV 15.4* 15.5* COAG: Recent Labs 07/22/18 0220 07/21/18 0437 07/20/18 0513 07/19/18 0510 07/18/18 0524 07/16/18 0548 INR 3.7* 3.6* 3.3* 3.6* 4.1* 3.3* BMP: Recent Labs 07/20/18 0513 07/17/18 0431 GLUC 71* 133* NA 141 140 K 3.9 3.5* CHLOR 102 96* CO2 27 31* ANION 12 13 BUN 17 23* CREAT 0.97* 1.10* CHEM: Recent Labs 07/20/1851207/17/18 0431 CA 9.4 8.6 Assessment and Plan who presented with calciphylaxis related left leg pain on 06/22/19. ? 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 Seizure - on keppra 250mg TID ? # Calciphylaxis -06/26/18 left leg skin biopsy: effaced epidermis, underlying dermis is fibrotic with vertically oriented blood vessels consistent with scar. Within the subcutis, there is extensive calcium deposition within the fat lobules and in the valente of small vessels within the subcutis. Additionally, there is stippled extracellular calcium. Findings compatible with the clinical impression of Calciphylaxis. -Home meds: pamidronate qwk, sodium thiosulfate 12.5 g 3x/wk -Unable to get sodium thiosulfate as an outpatient -Worsening pain Plan -Sodium thiosulfate ?- 25g in 250ml D5W infused over 1 hour ?- Monitor Vital signs during infusion given (low) risk of hypotension ?- BMP once per week to check for anion gap metabolic acidosis ?PRN during infusion:?- Acetaminophen 650mg PRN as needed for headache (will premedicate with acetaminophen if headaches are frequent) ?- Diphenhydramine 50 mg IV PRN hypotension, shortness of breath or bronchospasm ?- Meperidine 25 mg Injection PRN for rigors ?- Stop infusion if either hypotension or rigors occur. Solu-cortef 100mg IV and normal saline as needed for hypotension ?- Ondansetron 8 mg IV PRN Nausea/Vomiting (will premedicate with ondansetron if nausea/vomiting frequent) -Pain management recs: weaning Dilaudid. Methadone d/c'd -Dermatology consulted, punch biopsy obtained - sutures will need to be removed -IV pamidronate 30 mg q Monday -Wound care per dermatology: washing with saline wound wash, packing with daikin soaked gauze, gauze and tape - PLEX 07/23/18 ? 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 Has received stenting of IVC and iliacs along with endograft of IVC. - C/B extensive RP bleed s/p L2, L3 embolization. 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 - APS causing hepatic vein thrombosis, caval/ileo/femoral DVT (09/2013) s/p L common/external vein stent placement, IVC thrombectomy, placement of endoglix AFX endograft at inferior vena cava bifurcation and bilateral SFA to saphenous vein fistulas - past surgeries: per notes: 09/18/2013 - IVC thrombectomy; 09/25/2013 - left and right common iliac/external iliac bein stending, Endoglix AFX endograft at the IVC bifurcation placed; 09/26/13 -09/29/13- left and right proximal superficial artery to first branch of greater saphenous vein AV fistula; 10/01/13- femoropopliteal endovascular thrombectomies; 02/02/18: ?ligation of LLE SFA to GSV fistula; 02/12/18: left groin debridement -Home meds: Typically takes 5 mg warfarin daily, except 7.5 mg on the day of PLEX and 1-2 days following Plan -warfarin titration, recently supratherapeutic - APAP 650mg PO 4x/day PRN - Cymbalta to 90mg PO qAM - Lyrica 150 mg TID ? #HFrEF #HTN -03/14/18 ILEANA: EF 45%, LV mildly dilated, LA cavity is dilated, 2+ TR, 2-3+ AR, mobile echodensities originating in the SVC extending into the right atrium most consistent with a moderate to large burden or residual thrombus from a prior central venous catheter. No evidence of endocarditis. -05/06 renal venous US showed occlusive thrombus througout the IVC. Minimal venous flow in the kidney -Home meds: losartan 12.5mg daily, nifedipine 60mg daily, torsemide 20mg q8h PRN, carvedilol 12.5mg BID Plan -Continue home nifedipine, carvedilol, losartan ? Chronic conditions # Hx seasonal allergies / Hives - Continue home certirizine, Diphenhydramine prn # GERD - Continue home pantoprazole ? # Diet: regular # Dispo:?pending insurance approval for outpatient pamidronate and/or sodium thiosulfate Jorge Ricks MD PGY-2, Internal Medicine ATTENDING PHYSICIAN: Patient seen and evaluated today Fernandes elements of history and physical examination of the patient were confirmed. The assessment and plan were formulated and discussed with the team on Rounds. I reviewed the resident's note, examined the patient and agree with the documented findings and plan of care. Calciphylaxis, Antiphospholipid Syndrome Home when Na Thiosulfate arranged for out-patient infusion cont on torsemide (home meds), weigh daily, fluid restriction 1400 ml. Cont on pain control - but difficult. Cont Lyrica. Hold coumadin for now. Monitor INR. Discussed Insurance coverage for STS - Dr. Linnette Goff Staff and his team is following with insurance. I will touch base with them on Monday. Signed: Steve Crews MD Attending, Associate Staff Department of Hospital Medicine [facility] PROTIME Collected: 07/22/2018 Status: F Source: [place] 2:20 AM [facility] REPOSITORY TYPE CODE TESTS RESULT OUT OF RANGE REFERENCE UNITS LAB PSEC 9.7-13.0 sec High PT Sec 35.4 LAB INR 0.9-1.3 High PT INR 3.7 Result Comment: Vitamin K Antagonist (VKA) Therapeutic Range: INR 2 to 3 (Target INR of 2.5) Note: For patients treated with VKA drugs, such as warfarin, the [place] [employer] 2012 Guideline recommends [...] Chest 2012, 141:7S-47S Diogenes RA, et al. [facility] 2017, 70: 252-289 Performed By: #### PT #### [facility] [address] [place] [id number] PROGRESS Observed: 07/21/2018 Status: COMPLETED Source: [place] 6:44 AM [facility] REPOSITORY O ID: [id number] Author: Steve Crews Service: General Internal Medicine Author Type: Physician Type: Progress Notes Filed: 07/22/2018 12:28 AM Note Text: Medicine [place] - [facility] Terry Progress Note PATIENT NAME: Paloma Cannon Service date and time: 07/21/2018, 6:44 AM Admit Date Length of stay: 06/22/2018 28 day(s) Plan for Today #Antiphospholipid antibody syndrome #HFrEF #Calciphylaxis -continue sodium thiosulfate (T-Th-Sa, last dose 07/19) + pamidronate (qwk, last dose 07/20) for calciphylaxis -warfarin 2.5mg -continue APAP, duloxetine, pregabalin for pain control. -carvedilol, losartan, nifedipine, torsemide PRN -pending insurance coverage for pamidronate Interval Events -No acute overnight events. Reviewed nursing notes. -Pain well controlled. Worked with art therapy yesterday. Sodium thiosulfate today. Very active, walking the hallway -afebrile, HR 69-93, RR 17-19, BP 100/55?128/56, SpO2 99% on 2L NC > RA -07/21 INR 3.6 -07/20 derm: still awaiting coverage for pamidronate Medications Current hospital medications: warfarin 5 mg tab(s) (COUMADIN) 5 mg ORAL/FEEDING TUBE DAILY - WARFARIN calcium gluconate 300 mg injection 300 mg INTRAVENOUS APHERESIS PRN calcium carbonate 1,000 mg chewable tab(s) (TUMS) 1,000 mg ORAL APHERESIS PRN HYDROmorphone 2 mg tab(s) (DILAUDID) 2 mg ORAL DAILY PRN pregabalin 150 mg cap(s) (LYRICA) 150 mg ORAL TID diphenhydrAMINE 50 mg injection (BENADRYL) 50 mg INTRAVENOUS APHERESIS PRN hydrocortisone sodium succinate (PF) 200 mg injection (Solu- CORTEF) 200 mg INTRAVENOUS APHERESIS PRN sodium citrate 4% 3-6 mL catheter lock 3-6 mL INTRALUMINAL APHERESIS PRN lidocaine 5 % 1 Patch (LIDODERM) 1 Patch TRANSDERMAL DAILY lidocaine patch - REMOVE OTHER AT BEDTIME lidocaine - VERIFY PATCH OTHER q 8 H miconazole 2 % 1 application topical powder (LOTRIMIN AF, DESENEX) 1 application TOPICAL BID pamidronate 30 mg in NaCl 0.9% 1,000 mL (AREDIA) 30 mg INTRAVENOUS q 1 WEEK acetaminophen 650 mg tab(s) (TYLENOL) 650 mg ORAL q 6 H PRN losartan 25 mg tab(s) (COZAAR) 25 mg ORAL DAILY DULoxetine (CYMBALTA) cap(s) 90 mg 90 mg ORAL DAILY meperidine (PF) 25 mg injection (DEMEROL) 25 mg INTRAVENOUS q 6 H PRN sodium citrate 4% 3-6 mL catheter lock 3-6 mL INTRALUMINAL APHERESIS PRN sodium hypochlorite topical irrigation 0.25% (DAKINS HALF-STRENGTH) IRRIGATION DAILY NaCl 0.9% 10 mL 10 mL INTRAVENOUS q 12 H NaCl 0.9% 20 mL 20 mL INTRAVENOUS PRN NaCl 0.9% 2-10 mL 2-10 mL INTRAVENOUS q 12 H carvedilol 12.5 mg tab(s) (COREG) 12.5 mg ORAL BID w MEALS cetirizine 10 mg tab(s) (ZyrTEC) 10 mg ORAL BID NIFEdipine ER 60 mg tab(S) (PROCARDIA XL) 60 mg ORAL DAILY pantoprazole DR 40 mg tab(s) (PROTONIX) 40 mg ORAL DAILY (6 AM) warfarin order for discharge OTHER PRN sodium thiosulfate 25 g in D5W 250 mL 25 g INTRAVENOUS q 1800 ondansetron (PF) 4 mg injection (ZOFRAN) 4 mg INTRAVENOUS q 8 H PRN hydrocortisone sodium succinate (PF) 100 mg injection (Solu- CORTEF) 100 mg INTRAVENOUS q 6 H PRN diphenhydrAMINE 50 mg (BENADRYL) 50 mg ORAL q 6 H PRN Physical Exam BP 128/56 Pulse 73 Temp 36.7 ?C (98.1 ?F) (Oral) Resp 19 Ht 160 cm (5' 3) Wt 111.5 kg (245 lb 13 oz) SpO2 99% BMI 43.54 kg/m? General: no acute distress Neuro: moving all 4 extremities, no gross motor deficits Cardiac: RRR. Normals S1, S2. No gallops or murmurs. Pulm: CTA b/l in all lung ceballos. No w/r/c Abd: No distension. Nontender to palpation. Normal bowel sounds. No hepatosplenomegaly Ext:?No lower extremity edema.?2+ radial pulses b/l. Left medial thigh wound w/ dressing clean/dry/intact Fluid Balance Intake/Output 07/17/18 07 - 07/18/18 0659 07/18/18 07 - 07/19/18 0659 07/19/18 0700 - 07/20/18 0659 07/20/18 0700 - 07/21/18 0659 Intake (ml) 700 34 8215 820 Output (ml) 0 -- 0 -- Net (ml) 608 14 3683 820 Labs CBC: Recent Labs 07/20/18 0513 07/17/18 0431 WBC 4.49 4.11 HB 9.4* 9.4* HCT 29.7* 30.2* PLT 145* 118* MCV 88.1 88.6 RDWCV 15.4* 15.5* COAG: Recent Labs 07/21/18 0437 07/20/18 0513 07/19/18 0510 07/18/18 0524 07/16/18 0548 07/15/18 0717 INR 3.6* 3.3* 3.6* 4.1* 3.3* 3.5* BMP: Recent Labs 07/20/18 0513 07/17/18 0431 GLUC 71* 133* NA 141 140 K 3.9 3.5* CHLOR 102 96* CO2 27 31* ANION 12 13 BUN 17 23* CREAT 0.97* 1.10* CHEM: Recent Labs 07/20/18 0513 07/17/18 0431 CA 9.4 8.6 HEPATIC: No results for input(s): ALKPHOS, ALT, AST, TBILI, LIPASE in the last 168 hours. URINALYSIS:No results for input(s): PH, SPGR, UGLUC, UBILI, UKET, UHB, UPROT, UROBIL, UWBC, SSA in the last 168 hours. Invalid input(s): NITR CARDIAC: No results for input(s): CKTEST, CKMB, CKMBP, TROPT, PBNP in the last 168 hours. Assessment and Plan 28 yo F who presented with calciphylaxis related left leg pain on 06/22/19. ? 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 Seizure - on keppra 250mg TID ? # Calciphylaxis -06/26/18 left leg skin biopsy: effaced epidermis, underlying dermis is fibrotic with vertically oriented blood vessels consistent with scar. Within the subcutis, there is extensive calcium deposition within the fat lobules and in the valente of small vessels within the subcutis. Additionally, there is stippled extracellular calcium. Findings compatible with the clinical impression of Calciphylaxis. -Home meds: pamidronate qwk, sodium thiosulfate 12.5 g 3x/wk -Unable to get sodium thiosulfate as an outpatient -Worsening pain ? Plan -Sodium thiosulfate ?- 25g in 250ml D5W infused over 1 hour ?- Monitor Vital signs during infusion given (low) risk of hypotension ?- BMP once per week to check for anion gap metabolic acidosis ?PRN during infusion:?- Acetaminophen 650mg PRN as needed for headache (will premedicate with acetaminophen if headaches are frequent) ?- Diphenhydramine 50 mg IV PRN hypotension, shortness of breath or bronchospasm ?- Meperidine 25 mg Injection PRN for rigors ?- Stop infusion if either hypotension or rigors occur. Solu-cortef 100mg IV and normal saline as needed for hypotension ?- Ondansetron 8 mg IV PRN Nausea/Vomiting (will premedicate with ondansetron if nausea/vomiting frequent) -Pain management recs: weaning Dilaudid. Methadone d/c'd -Dermatology consulted, punch biopsy obtained - sutures will need to be removed -IV pamidronate 30 mg q Monday -Wound care per dermatology: washing with saline wound wash, packing with daikin soaked gauze, gauze and tape - PLEX 07/23/18 ? 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 Has received stenting of IVC and iliacs along with endograft of IVC. - C/B extensive RP bleed s/p L2, L3 embolization. 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 - APS causing hepatic vein thrombosis, caval/ileo/femoral DVT (09/2013) s/p L common/external vein stent placement, IVC thrombectomy, placement of endoglix AFX endograft at inferior vena cava bifurcation and bilateral SFA to saphenous vein fistulas - past surgeries: per notes: 09/18/2013 - IVC thrombectomy; 09/25/2013 - left and right common iliac/external iliac bein stending, Endoglix AFX endograft at the IVC bifurcation placed; 09/26/13 -09/29/13- left and right proximal superficial artery to first branch of greater saphenous vein AV fistula; 10/01/13- femoropopliteal endovascular thrombectomies; 02/02/18: ?ligation of LLE SFA to GSV fistula; 02/12/18: left groin debridement -Home meds: Typically takes 5 mg warfarin daily, except 7.5 mg on the day of PLEX and 1-2 days following ? Plan -warfarin titration, recently supratherapeutic - APAP 650mg PO 4x/day PRN - Cymbalta to 90mg PO qAM - Lyrica 150 mg TID ? #HFrEF #HTN -03/14/18 ILEANA: EF 45%, LV mildly dilated, LA cavity is dilated, 2+ TR, 2-3+ AR, mobile echodensities originating in the SVC extending into the right atrium most consistent with a moderate to large burden or residual thrombus from a prior central venous catheter. No evidence of endocarditis. -05/06 renal venous US showed occlusive thrombus througout the IVC. Minimal venous flow in the kidney -Home meds: losartan 12.5mg daily, nifedipine 60mg daily, torsemide 20mg q8h PRN, carvedilol 12.5mg BID ? Plan -Continue home nifedipine, carvedilol, losartan ? Chronic conditions #Hx seasonal allergies / Hives - Continue home certirizine, Diphenhydramine prn #GERD - Continue home pantoprazole ? # Diet: regular # Dispo:?pending insurance approval Lines, Drains, and Airways Line Central Line Single Lumen Tunneled Left Chest -- days Dialysis / Apheresis Double Lumen 03/17/18 1000 Admission to Hospital Tunneled Left Chest 125 days Anticoagulant AND Antiplatelet Medications Start Dose Route Frequency Ordered Stop 07/20/18 1700 warfarin 5 mg tab(s) (COUMADIN) 5 mg PO/FT DAILY - WARFARIN 07/20/18 06 -- Jose Elias Mir M.D. Internal Button Sewing Machine Operator, PGY I NIGHT AND WEEKEND COVERAGE: Days: [phone], please page me [phone] for patient issues. Nights: After 5PM on weekdays and 3PM on weekends, please page [phone]. ATTENDING PHYSICIAN: Patient seen and evaluated today Fernandes elements of history and physical examination of the patient were confirmed. The assessment and plan were formulated and discussed with the team on Rounds. I reviewed the resident's note, examined the patient and agree with the documented findings and plan of care. Calciphylaxis, Antiphospholipid Syndrome Home when Na Thiosulfate arranged for out-patient infusion cont on torsemide (home meds), weigh daily, fluid restriction 1400 ml. Cont on pain control - but difficult. Cont Lyrica. Restart on lower dose of coumadin 2.5mg for now. Monitor INR. Discussed Insurance coverage for STS - Dr. Linnette Colin Derm Staff and his team is following with insurance. I will touch base with them on Monday. Signed: Steve Crews MD Attending, Associate Staff Department of Hospital Medicine [facility] PROTIME Collected: 07/21/2018 Status: F Source: [place] 4:37 AM [facility] REPOSITORY TYPE CODE TESTS RESULT OUT OF RANGE REFERENCE UNITS LAB PSEC 9.7-13.0 sec High PT Sec 34.4 LAB INR 0.9-1.3 High PT INR 3.6 Result Comment: Vitamin K Antagonist (VKA) Therapeutic Range: INR 2 to 3 (Target INR of 2.5) Note: For patients treated with VKA drugs, such as warfarin, the [employer] 2012 Guideline recommends [...] Chest 2012, 141:7S-47S Diogenes RA, et al. [facility] 2017, 70: 252-289 Performed By: #### PT #### [facility] [employer] [address] [place], [place] [address] CONSULT PROG Observed: 07/20/2018 Status: COMPLETED Source: [place] 3:48 [facility] REPOSITORY HNO ID: [id number] Author: Ros Amezquita Service: Dermatology Author Type: Resident Type: Consult Progress Note Filed: 07/20/2018 3:50 PM Note Text: Attestation signed by Morteza Ocampo at 07/21/2018 8:43 AM I have seen and examined Ms. Cannon. I have discussed the case and the management of this patient's care with the Resident. I agree that use of intralesional STS may be helpful for this patient. The team will try to find out of this could be covered by insurance. I also have reviewed and agree with the assessment and plan as stated above and agree with all of its relevant components. There were no procedures performed during this patient's visit. Morteza Ocampo MD DERMATOLOGY HOSPITAL CONSULT SERVICE PROGRESS NOTE Interval Events - Pain much better controlled today PHYSICAL EXAM BP 115/69 Pulse 69 Temp 36.9 ?C (98.5 ?F) (Oral) Resp 18 Ht 160 cm (5' 3) Wt 108.7 kg (239 lb 10.2 oz) SpO2 99% BMI 42.45 kg/m? Skin type: I GEN: awake, no acute distress Skin examination of the BLE including feet and was pertinent for: - Left lower leg with well demarcated ulceration with surrounding induration. No purulent discharge. LABORATORY TESTS: CBC: Recent Labs 07/20/18 0513 07/17/18 0431 07/14/18 0516 WBC 4.49 4.11 3.22* HB 9.4* 9.4* 8.5* HCT 29.7* 30.2* 27.6* PLT 145* 118* 113* MCV 88.1 88.6 89.0 RDWCV 15.4* 15.5* 16.0* COAG: Recent Labs 07/20/18 0513 07/19/18 0510 07/18/18 0524 07/16/18 0548 07/15/18 0717 07/14/18 0516 INR 3.3* 3.6* 4.1* 3.3* 3.5* 3.5* BMP: Recent Labs 07/20/18 0513 07/17/18 0431 07/14/18 0516 GLUC 71* 133* 83 NA 141 140 142 K 3.9 3.5* 4.2 CHLOR 102 96* 105 CO2 27 31* 26 ANION 12 13 11 BUN 17 23* 17 CREAT 0.97* 1.10* 0.92 CHEM: Recent Labs 07/20/1851207/17/18 0431 07/14/18 0516 CA 9.4 8.6 9.1 FINAL DIAGNOSIS A. Skin, left leg, punch biopsy - Calciphylaxis (see comment). MP/CE/rw 06/27/2018 COMMENT Histologic sections demonstrate an effaced epidermis. The underlying dermis is fibrotic with vertically oriented blood vessels consistent with scar. Within the subcutis, there is extensive calcium deposition within the fat lobules and in the valente of small vessels within the subcutis. Additionally, there is stippled extracellular calcium. These histologic features are compatible with the clinical impression of calciphylaxis. A/P: Ms Cannon is a 28 year old female with a PMHx of antiphyospholipid syndrome on coumadin AND plasmapheresis, PAD, DVT, ?HFrEF,?CKD, calciphylaxis (diagnosed in February 2018 after being admitted for antiphospholipid syndrome). Patient has been unable to obtain outpatient coverage for STS despite appeal made by dermatology and is now admitted for worsening pain from LLE ulceration. Currently on IV sodium thiosulfate 25 g , Mon. Pamidronate started on 06/28/18- stopped due to ?allergic reaction (tingling in toes, no respiratory distress). Tolerated well on 06/29/18 with pre-medication with benadryl AND steroids. Disease likely aggravated by the fact that patient is still on warfarin. ? Plan - Continue STS 25 g three times weekly - Continue IV pamidronate 30 mg weekly - Insurance denial letter reviewed- STS was denied as requested drug is produced by a nonparticipating traffic sign supervisor. - Patient states she talked to her insurance company and pamidronate will reportedly be covered. She is wondering if she can get infusions at [facility] oncology center in [place] vs [facility]. [facility] infusion center has agreed to do the infusions for her; however, we are still waiting on insurance approval for the Pamidronate and possibly, but less likely STS - Local oncologist found to oversee patient's infusions; still awaiting coverage for pamidronate -Will look into possibly getting intralesional STS covered -Patient seen and discussed with staff gyroscopic instrument tester Dr. Linnette Amezquita MD Dermatology Resident July 18, 2018 PROGRESS Observed: 07/20/2018 Status: COMPLETED Source: [place] 6:59 AM [facility] [place] REPOSITORY HNO ID: [id number] Author: Steve Crews Service: General Internal Medicine Author Type: Physician Type: Progress Notes Filed: 07/20/2018 2:58 PM Note Text: Medicine [place] - V[facility] Terry Progress Note PATIENT NAME: Paloma Cannon Service date and time: 07/20/2018, 6:59 AM Admit Date Length of stay: 06/22/2018 27 day(s) Plan for Today #Antiphospholipid antibody syndrome #HFrEF #Calciphylaxis -continue sodium thiosulfate (T-Th-Sa, last dose 07/19) + pamidronate (qwk, next dose TODAY) for calciphylaxis -warfarin 5mg -continue APAP, duloxetine, pregabalin for pain control. -carvedilol, losartan, nifedipine, torsemide PRN -pending insurance coverage for pamidronate Interval Events -NAOE, pain well controlled only hurts temporarily with bandage replacement -yesterday received sodium thiosulfate -vitals: afebrile (Tmax 37.3), HR 72-89, RR 17-19, BP 101/79?126/58, SpO2 97-98 on RA -24h PRN meds: 1x tylenol -PT INR: 3.3 -WBC 4.49, hgb 9.4, hct 29.7 plt 145 Medications Current hospital medications: warfarin 2.5 mg tab(s) (COUMADIN) 2.5 mg ORAL/FEEDING TUBE DAILY - WARFARIN calcium gluconate 300 mg injection 300 mg INTRAVENOUS APHERESIS PRN calcium carbonate 1,000 mg chewable tab(s) (TUMS) 1,000 mg ORAL APHERESIS PRN HYDROmorphone 2 mg tab(s) (DILAUDID) 2 mg ORAL DAILY PRN pregabalin 150 mg cap(s) (LYRICA) 150 mg ORAL TID diphenhydrAMINE 50 mg injection (BENADRYL) 50 mg INTRAVENOUS APHERESIS PRN hydrocortisone sodium succinate (PF) 200 mg injection (Solu- CORTEF) 200 mg INTRAVENOUS APHERESIS PRN sodium citrate 4% 3-6 mL catheter lock 3-6 mL INTRALUMINAL APHERESIS PRN lidocaine 5 % 1 Patch (LIDODERM) 1 Patch TRANSDERMAL DAILY lidocaine patch - REMOVE OTHER AT BEDTIME lidocaine - VERIFY PATCH OTHER q 8 H miconazole 2 % 1 application topical powder (LOTRIMIN AF, DESENEX) 1 application TOPICAL BID pamidronate 30 mg in NaCl 0.9% 1,000 mL (AREDIA) 30 mg INTRAVENOUS q 1 WEEK acetaminophen 650 mg tab(s) (TYLENOL) 650 mg ORAL q 6 H PRN losartan 25 mg tab(s) (COZAAR) 25 mg ORAL DAILY DULoxetine (CYMBALTA) cap(s) 90 mg 90 mg ORAL DAILY meperidine (PF) 25 mg injection (DEMEROL) 25 mg INTRAVENOUS q 6 H PRN sodium citrate 4% 3-6 mL catheter lock 3-6 mL INTRALUMINAL APHERESIS PRN sodium hypochlorite topical irrigation 0.25% (DAKINS HALF-STRENGTH) IRRIGATION DAILY NaCl 0.9% 10 mL 10 mL INTRAVENOUS q 12 H NaCl 0.9% 20 mL 20 mL INTRAVENOUS PRN NaCl 0.9% 2-10 mL 2-10 mL INTRAVENOUS q 12 H carvedilol 12.5 mg tab(s) (COREG) 12.5 mg ORAL BID w MEALS cetirizine 10 mg tab(s) (ZyrTEC) 10 mg ORAL BID NIFEdipine ER 60 mg tab(S) (PROCARDIA XL) 60 mg ORAL DAILY pantoprazole DR 40 mg tab(s) (PROTONIX) 40 mg ORAL DAILY (6 AM) warfarin order for discharge OTHER PRN sodium thiosulfate 25 g in D5W 250 mL 25 g INTRAVENOUS q 1800 ondansetron (PF) 4 mg injection (ZOFRAN) 4 mg INTRAVENOUS q 8 H PRN hydrocortisone sodium succinate (PF) 100 mg injection (Solu- CORTEF) 100 mg INTRAVENOUS q 6 H PRN diphenhydrAMINE 50 mg (BENADRYL) 50 mg ORAL q 6 H PRN Physical Exam BP 126/58 Pulse 72 Temp 36.9 ?C (98.5 ?F) (Oral) Resp 19 Ht 160 cm (5' 3) Wt 108.7 kg (239 lb 10.2 oz) SpO2 98% BMI 42.45 kg/m? General: no acute distress Neuro: moving all 4 extremities, no gross motor deficits Cardiac: RRR. Normals S1, S2. No gallops or murmurs. Pulm: CTA b/l in all lung ceballos. No w/r/c Abd: No distension. Nontender to palpation. Normal bowel sounds. No hepatosplenomegaly Ext:?No lower extremity edema.?2+ radial pulses b/l. Left medial thigh wound w/ dressing clean/dry/intact Fluid Balance Intake/Output 07/16/18 0700 - 07/17/18 0659 07/17/18 0700 - 07/18/18 0659 07/18/18 0700 - 07/19/18 0659 07/19/18 0700 - 07/20/18 0659 Intake (ml) 1070 897 48 1082 Output (ml) 0 0 -- 0 Net (ml) 1070 559 63 1573 Labs CBC: Recent Labs 07/20/18 0513 07/17/18 0431 07/14/18 0516 WBC 4.49 4.11 3.22* HB 9.4* 9.4* 8.5* HCT 29.7* 30.2* 27.6* PLT 145* 118* 113* MCV 88.1 88.6 89.0 RDWCV 15.4* 15.5* 16.0* COAG: Recent Labs 07/20/18 0513 07/19/18 0510 07/18/18 0524 07/16/18 0548 07/15/18 0717 07/14/18 0516 INR 3.3* 3.6* 4.1* 3.3* 3.5* 3.5* BMP: Recent Labs 07/17/18 0431 07/14/18 0516 GLUC 133* 83 NA 140 142 K 3.5* 4.2 CHLOR 96* 105 CO2 31* 26 ANION 13 11 BUN 23* 17 CREAT 1.10* 0.92 CHEM: Recent Labs 07/17/18 0431 07/14/18 0516 CA 8.6 9.1 HEPATIC: No results for input(s): ALKPHOS, ALT, AST, TBILI, LIPASE in the last 168 hours. URINALYSIS:No results for input(s): PH, SPGR, UGLUC, UBILI, UKET, UHB, UPROT, UROBIL, UWBC, SSA in the last 168 hours. Invalid input(s): NITR CARDIAC: No results for input(s): CKTEST, CKMB, CKMBP, TROPT, PBNP in the last 168 hours. Assessment and Plan 28 yo F who presented with calciphylaxis related left leg pain on 06/22/19. ? 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 Seizure - on keppra 250mg TID ? # Calciphylaxis -06/26/18 left leg skin biopsy: effaced epidermis, underlying dermis is fibrotic with vertically oriented blood vessels consistent with scar. Within the subcutis, there is extensive calcium deposition within the fat lobules and in the valente of small vessels within the subcutis. Additionally, there is stippled extracellular calcium. Findings compatible with the clinical impression of Calciphylaxis. -Home meds: pamidronate qwk, sodium thiosulfate 12.5 g 3x/wk -Unable to get sodium thiosulfate as an outpatient -Worsening pain ? Plan -Sodium thiosulfate ?- 25g in 250ml D5W infused over 1 hour ?- Monitor Vital signs during infusion given (low) risk of hypotension ?- BMP once per week to check for anion gap metabolic acidosis ?PRN during infusion:?- Acetaminophen 650mg PRN as needed for headache (will premedicate with acetaminophen if headaches are frequent) ?- Diphenhydramine 50 mg IV PRN hypotension, shortness of breath or bronchospasm ?- Meperidine 25 mg Injection PRN for rigors ?- Stop infusion if either hypotension or rigors occur. Solu-cortef 100mg IV and normal saline as needed for hypotension ?- Ondansetron 8 mg IV PRN Nausea/Vomiting (will premedicate with ondansetron if nausea/vomiting frequent) -Pain management recs: weaning Dilaudid. Methadone d/c'd -Dermatology consulted, punch biopsy obtained - sutures will need to be removed -IV pamidronate 30 mg q Monday -Wound care per dermatology: washing with saline wound wash, packing with daikin soaked gauze, gauze and tape - PLEX 07/23/18 ? 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 Has received stenting of IVC and iliacs along with endograft of IVC. - C/B extensive RP bleed s/p L2, L3 embolization. 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 - APS causing hepatic vein thrombosis, caval/ileo/femoral DVT (09/2013) s/p L common/external vein stent placement, IVC thrombectomy, placement of endoglix AFX endograft at inferior vena cava bifurcation and bilateral SFA to saphenous vein fistulas - past surgeries: per notes: 09/18/2013 - IVC thrombectomy; 09/25/2013 - left and right common iliac/external iliac bein stending, Endoglix AFX endograft at the IVC bifurcation placed; 09/26/13 -09/29/13- left and right proximal superficial artery to first branch of greater saphenous vein AV fistula; 10/01/13- femoropopliteal endovascular thrombectomies; 02/02/18: ?ligation of LLE SFA to GSV fistula; 02/12/18: left groin debridement -Home meds: Typically takes 5 mg warfarin daily, except 7.5 mg on the day of PLEX and 1-2 days following ? Plan -warfarin titration, recently supratherapeutic - APAP 650mg PO 4x/day PRN - Cymbalta to 90mg PO qAM - Lyrica 150 mg TID ? #HFrEF #HTN -03/14/18 ILEANA: EF 45%, LV mildly dilated, LA cavity is dilated, 2+ TR, 2-3+ AR, mobile echodensities originating in the SVC extending into the right atrium most consistent with a moderate to large burden or residual thrombus from a prior central venous catheter. No evidence of endocarditis. -05/06 renal venous US showed occlusive thrombus througout the IVC. Minimal venous flow in the kidney -Home meds: losartan 12.5mg daily, nifedipine 60mg daily, torsemide 20mg q8h PRN, carvedilol 12.5mg BID ? Plan -Continue home nifedipine, carvedilol, losartan ? Chronic conditions #Hx seasonal allergies / Hives - Continue home certirizine, Diphenhydramine prn #GERD - Continue home pantoprazole ? # Diet: regular # Dispo:?pending insurance approval ? Lines, Drains, and Airways Line Central Line Single Lumen Tunneled Left Chest -- days Dialysis / Apheresis Double Lumen 03/17/18 1000 Admission to Hospital Tunneled Left Chest 124 days Anticoagulant AND Antiplatelet Medications Start Dose Route Frequency Ordered Stop 07/19/18 1700 warfarin 2.5 mg tab(s) (COUMADIN) 2.5 mg PO/FT DAILY - WARFARIN 07/19/18 1142 -- Jose Elias Mir M.D. Internal Button Sewing Machine Operator, PGY I NIGHT AND WEEKEND COVERAGE: Days: [phone], please page me [phone] for patient issues. Nights: After 5PM on weekdays and 3PM on weekends, please page [phone]. ATTENDING PHYSICIAN: Patient seen and evaluated today Fernandes elements of history and physical examination of the patient were confirmed. The assessment and plan were formulated and discussed with the team on Rounds. I reviewed the resident's note, examined the patient and agree with the documented findings and plan of care. Calciphylaxis, Antiphospholipid Syndrome Home when Na Thiosulfate arranged for out-patient infusion cont on torsemide (home meds), weigh daily, fluid restriction 1400 ml. Cont on pain control - but difficult. Cont Lyrica. Restart on lower dose of coumadin 2.5mg for now. Monitor INR. Discussed Insurance coverage for STS - Dr. Linnette Colin Derm Staff and his team is following with insurance. I will touch base with them on Monday. Signed: Steve Crews MD Attending, Associate Staff Department of Hospital Medicine [facility] PROTIME Collected: 07/20/2018 Status: F Source: [place] 5:13 AM [facility] REPOSITORY TYPE CODE TESTS RESULT OUT OF RANGE REFERENCE UNITS LAB PSEC 9.7-13.0 sec High PT Sec 31.9 LAB INR 0.9-1.3 High PT INR 3.3 Result Comment: Vitamin K Antagonist (VKA) Therapeutic Range: INR 2 to 3 (Target INR of 2.5) Note: For patients treated with VKA drugs, such as warfarin, the [place] 2012 Guideline recommends [...] Chest 2012, 141:7S-47S Diogenes RA, et al. [facility] 2017, 70: 252-289 Performed By: #### PT, CBC, BMP #### [facility] [address] [place] [address] CBC Collected: 07/20/2018 Status: F Source: [place] 5:13 AM [facility] REPOSITORY TYPE CODE TESTS RESULT OUT OF REFERENCE UNITS RANGE LAB WBC 3.70-11.00 k/uL WBC 4.49 LAB RBC 3.90-5.20 m/uL Low RBC 3.37 LAB HGB 11.5-15.5 g/dL Low Hemoglobin 9.4 LAB HCT 36.0-46.0 % Low Hematocrit 29.7 LAB MCV 80.0-100.0 fL MCV 88.1 LAB MCH 26.0-34.0 pG MCH 27.9 LAB MCHC 30.5-36.0 g/dL MCHC 31.6 LAB RDWCV 11.5-15.0 % RDW-CV High 15.4 LAB PLTCT 150-400 k/uL Low Platelet Count 145 LAB MPV 9.0-12.7 fL MPV 10.0 LAB ABSNUC <0.01 k/uL Absolute High nRBC 0.01 Performed By: #### PT, CBC, BMP #### [facility] [address] [place], [place] [address] BASIC METABOLIC PANL Collected: 07/20/2018 Status: F Source: [place] 5:13 AM [facility] REPOSITORY TYPE CODE TESTS RESULT OUT OF REFERENCE UNITS RANGE LAB GLU 74-99 mg/dL Low Glucose 71 Result Comment: The [place] [employer] (ADA) provides guidance for cutoff [...] Standards of Medical Care in Diabetes 2016, [place] [employer]. Diabetes Care. 2016.39(Suppl 1). LAB BUN 7-21 mg/dL BUN 17 LAB CRET 0.58-0.96 mg/dL Creatinine High 0.97 LAB NA 136-144 mmol/L Sodium 141 LAB K 3.7-5.1 mmol/L Potassium 3.9 LAB CL 97-105 mmol/L Chloride 102 LAB CO2 22-30 mmol/L CO2 27 LAB AGAP 9-18 mmol/L Anion Gap 12 LAB CA 8.5-10.2 mg/dL Calcium, Total 9.4 LAB GFRAA eGFR- Amer. >60 LAB GFRNAA [...] Performed By: #### PT, CBC, BMP #### [facility] [address] [address] NURSING PROG Observed: 07/19/2018 Status: COMPLETED Source: [place] 10:35 AM [facility] REPOSITORY HNO ID: [id number] Author: Tiffani (Rn) JEFF Hernadez Service: (none) Author Type: Registered Nurse Type: Nursing Progress Note Filed: 07/19/2018 10:37 AM Note Text: Nursing Progress Note Patient Name: Paloma Cannon Patient Location: H080 [id number]/H080-09 Pt is AANDOx3. VSS, afebrile, SAT's WNL on 2L NC. Currently resting at this time. Labs being monitored daily. Skin prevention maintained; q2 turns in place. Fall/safety prevention maintained. Pt instructed to call when requiring assistance. Will continue to monitor This note was completed by: Tiffani Hernadez RN PROGRESS Observed: 07/19/2018 Status: COMPLETED Source: [place] 6:40 AM [facility] REPOSITORY HNO ID: [id number] Author: Steve Crews Service: General Internal Medicine Author Type: Physician Type: Progress Notes Filed: 07/22/2018 12:40 AM Note Text: [facility] - [facility] Terry Progress Note PATIENT NAME: Paloma Cannon Service date and time: 07/19/2018, 6:41 AM Admit Date Length of stay: 06/22/2018 26 day(s) Plan for Today -continue sodium thiosulfate + pamidronate for calciphylaxis -warfarin 2.5mg -continue APAP, duloxetine, pregabalin for pain control. -carvedilol, losartan, nifedipine, torsemide PRN -pending insurance coverage Interval Events -NAOE -vitals: afebrile, HR 75-93, RR 17-18, BP 107/56-113/63, SpO2 97-98 on 2L NC -07/19 INR 3.6 -07/18 derm: Continue STS 25 g three times weekly; Continue IV pamidronate 30 mg weekly; Insurance denial letter reviewed- STS was denied as requested drug is produced by a nonparticipating traffic sign supervisor. - Patient states she talked to her insurance company and pamidronate will reportedly be covered. She is wondering if she can get infusions at [facility] in [place] vs [facility]. [facility] infusion center has agreed to do the infusions for her; however, we are still waiting on insurance approval for the Pamidronate and possibly, but less likely STS Medications Current hospital medications: warfarin 5 mg tab(s) (COUMADIN) 5 mg ORAL/FEEDING TUBE DAILY - WARFARIN calcium gluconate 300 mg injection 300 mg INTRAVENOUS APHERESIS PRN calcium carbonate 1,000 mg chewable tab(s) (TUMS) 1,000 mg ORAL APHERESIS PRN HYDROmorphone 2 mg tab(s) (DILAUDID) 2 mg ORAL DAILY PRN pregabalin 150 mg cap(s) (LYRICA) 150 mg ORAL TID diphenhydrAMINE 50 mg injection (BENADRYL) 50 mg INTRAVENOUS APHERESIS PRN hydrocortisone sodium succinate (PF) 200 mg injection (Solu- CORTEF) 200 mg INTRAVENOUS APHERESIS PRN sodium citrate 4% 3-6 mL catheter lock 3-6 mL INTRALUMINAL APHERESIS PRN lidocaine 5 % 1 Patch (LIDODERM) 1 Patch TRANSDERMAL DAILY lidocaine patch - REMOVE OTHER AT BEDTIME lidocaine - VERIFY PATCH OTHER q 8 H miconazole 2 % 1 application topical powder (LOTRIMIN AF, DESENEX) 1 application TOPICAL BID pamidronate 30 mg in NaCl 0.9% 1,000 mL (AREDIA) 30 mg INTRAVENOUS q 1 WEEK acetaminophen 650 mg tab(s) (TYLENOL) 650 mg ORAL q 6 H PRN losartan 25 mg tab(s) (COZAAR) 25 mg ORAL DAILY DULoxetine (CYMBALTA) cap(s) 90 mg 90 mg ORAL DAILY meperidine (PF) 25 mg injection (DEMEROL) 25 mg INTRAVENOUS q 6 H PRN sodium citrate 4% 3-6 mL catheter lock 3-6 mL INTRALUMINAL APHERESIS PRN sodium hypochlorite topical irrigation 0.25% (DAKINS HALF-STRENGTH) IRRIGATION DAILY NaCl 0.9% 10 mL 10 mL INTRAVENOUS q 12 H NaCl 0.9% 20 mL 20 mL INTRAVENOUS PRN NaCl 0.9% 2-10 mL 2-10 mL INTRAVENOUS q 12 H carvedilol 12.5 mg tab(s) (COREG) 12.5 mg ORAL BID w MEALS cetirizine 10 mg tab(s) (ZyrTEC) 10 mg ORAL BID NIFEdipine ER 60 mg tab(S) (PROCARDIA XL) 60 mg ORAL DAILY pantoprazole DR 40 mg tab(s) (PROTONIX) 40 mg ORAL DAILY (6 AM) warfarin order for discharge OTHER PRN sodium thiosulfate 25 g in D5W 250 mL 25 g INTRAVENOUS q 1800 ondansetron (PF) 4 mg injection (ZOFRAN) 4 mg INTRAVENOUS q 8 H PRN hydrocortisone sodium succinate (PF) 100 mg injection (Solu- CORTEF) 100 mg INTRAVENOUS q 6 H PRN diphenhydrAMINE 50 mg (BENADRYL) 50 mg ORAL q 6 H PRN Physical Exam BP 111/58 Pulse 75 Temp 36.8 ?C (98.3 ?F) (Oral) Resp 18 Ht 160 cm (5' 3) Wt 108 kg (238 lb 1.6 oz) SpO2 97% BMI 42.18 kg/m? General: no acute distress Neuro: moving all 4 extremities, no gross motor deficits Cardiac: RRR. Normals S1, S2. No gallops or murmurs. Pulm: CTA b/l in all lung ceballos. No w/r/c Abd: No distension. Nontender to palpation. Normal bowel sounds. No hepatosplenomegaly Ext:?No lower extremity edema.?2+ radial pulses b/l. Left medial thigh wound w/ dressing clean/dry/intact Fluid Balance Intake/Output 01/06/19 0700 - 07/16/18 0659 07/16/18 0700 - 07/17/18 0659 07/17/18 0700 - 07/18/18 0659 07/18/18 0700 - 07/19/18 0659 Intake (ml) 1120 1070 840 10 Output (ml) -- 0 0 -- Net (ml) 1120 1070 840 10 Labs CBC: Recent Labs 07/17/18 0431 07/14/18 0516 WBC 4.11 3.22* HB 9.4* 8.5* HCT 30.2* 27.6* PLT 118* 113* MCV 88.6 89.0 RDWCV 15.5* 16.0* COAG: Recent Labs 07/19/18 0510 07/18/18 0524 07/16/18 0548 07/15/18 0717 07/14/18 0516 INR 3.6* 4.1* 3.3* 3.5* 3.5* BMP: Recent Labs 07/17/18 0431 07/14/18 0516 GLUC 133* 83 NA 140 142 K 3.5* 4.2 CHLOR 96* 105 CO2 31* 26 ANION 13 11 BUN 23* 17 CREAT 1.10* 0.92 CHEM: Recent Labs 07/17/18 0431 07/14/18 0516 CA 8.6 9.1 HEPATIC: No results for input(s): ALKPHOS, ALT, AST, TBILI, LIPASE in the last 168 hours. URINALYSIS:No results for input(s): PH, SPGR, UGLUC, UBILI, UKET, UHB, UPROT, UROBIL, UWBC, SSA in the last 168 hours. Invalid input(s): NITR CARDIAC: No results for input(s): CKTEST, CKMB, CKMBP, TROPT, PBNP in the last 168 hours. Assessment and Plan 28 yo F who presented with calciphylaxis related left leg pain on 06/22/19. ? 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 Seizure - on keppra 250mg TID ? # Calciphylaxis -06/26/18 left leg skin biopsy: effaced epidermis, underlying dermis is fibrotic with vertically oriented blood vessels consistent with scar. Within the subcutis, there is extensive calcium deposition within the fat lobules and in the valente of small vessels within the subcutis. Additionally, there is stippled extracellular calcium. Findings compatible with the clinical impression of Calciphylaxis. -Home meds: pamidronate qwk, sodium thiosulfate 12.5 g 3x/wk -Unable to get sodium thiosulfate as an outpatient -Worsening pain ? Plan -Sodium thiosulfate ?- 25g in 250ml D5W infused over 1 hour ?- Monitor Vital signs during infusion given (low) risk of hypotension ?- BMP once per week to check for anion gap metabolic acidosis ?PRN during infusion:?- Acetaminophen 650mg PRN as needed for headache (will premedicate with acetaminophen if headaches are frequent) ?- Diphenhydramine 50 mg IV PRN hypotension, shortness of breath or bronchospasm ?- Meperidine 25 mg Injection PRN for rigors ?- Stop infusion if either hypotension or rigors occur. Solu-cortef 100mg IV and normal saline as needed for hypotension ?- Ondansetron 8 mg IV PRN Nausea/Vomiting (will premedicate with ondansetron if nausea/vomiting frequent) -Pain management recs: weaning Dilaudid. Methadone d/c'd -Dermatology consulted, punch biopsy obtained - sutures will need to be removed -IV pamidronate 30 mg q Monday -Wound care per dermatology: washing with saline wound wash, packing with daikin soaked gauze, gauze and tape - PLEX 07/23/18 ? 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 Has received stenting of IVC and iliacs along with endograft of IVC. - C/B extensive RP bleed s/p L2, L3 embolization. 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 - APS causing hepatic vein thrombosis, caval/ileo/femoral DVT (09/2013) s/p L common/external vein stent placement, IVC thrombectomy, placement of endoglix AFX endograft at inferior vena cava bifurcation and bilateral SFA to saphenous vein fistulas - past surgeries: per notes: 09/18/2013 - IVC thrombectomy; 09/25/2013 - left and right common iliac/external iliac bein stending, Endoglix AFX endograft at the IVC bifurcation placed; 09/26/13 -09/29/13- left and right proximal superficial artery to first branch of greater saphenous vein AV fistula; 10/01/13- femoropopliteal endovascular thrombectomies; 02/02/18: ?ligation of LLE SFA to GSV fistula; 02/12/18: left groin debridement -Home meds: Typically takes 5 mg warfarin daily, except 7.5 mg on the day of PLEX and 1-2 days following ? Plan -warfarin titration, recently supratherapeutic - APAP 650mg PO 4x/day PRN - Cymbalta to 90mg PO qAM - Lyrica 150 mg TID ? #HFrEF #HTN -03/14/18 ILEANA: EF 45%, LV mildly dilated, LA cavity is dilated, 2+ TR, 2-3+ AR, mobile echodensities originating in the SVC extending into the right atrium most consistent with a moderate to large burden or residual thrombus from a prior central venous catheter. No evidence of endocarditis. -05/06 renal venous US showed occlusive thrombus througout the IVC. Minimal venous flow in the kidney -Home meds: losartan 12.5mg daily, nifedipine 60mg daily, torsemide 20mg q8h PRN, carvedilol 12.5mg BID ? Plan -Continue home nifedipine, carvedilol, losartan ? Chronic conditions #Hx seasonal allergies / Hives - Continue home certirizine, Diphenhydramine prn #GERD - Continue home pantoprazole ? # Diet: regular # Dispo:?pending insurance approval Lines, Drains, and Airways Line Central Line Single Lumen Tunneled Left Chest -- days Dialysis / Apheresis Double Lumen 03/17/18 1000 Admission to Hospital Tunneled Left Chest 123 days Anticoagulant AND Antiplatelet Medications Start Dose Route Frequency Ordered Stop 07/19/18 1700 warfarin 5 mg tab(s) (COUMADIN) 5 mg PO/FT DAILY - WARFARIN 07/18/18 0747 -- Jose Elias Mir M.D. Internal Button Sewing Machine Operator, PGY I NIGHT AND WEEKEND COVERAGE: Days: [phone], [place] [phone] for patient issues. Nights: After 5PM on weekdays and 3PM on weekends, please page [phone]. ATTENDING PHYSICIAN: Patient seen and evaluated today Fernandes elements of history and physical examination of the patient were confirmed. The assessment and plan were formulated and discussed with the team on Rounds. I reviewed the resident's note, examined the patient and agree with the documented findings and plan of care. Calciphylaxis, Antiphospholipid Syndrome Home when Na Thiosulfate arranged for out-patient infusion cont on torsemide (home meds), weigh daily, fluid restriction 1400 ml. Cont on pain control - but difficult. Cont Lyrica. Monitor INR. Discussed Insurance coverage for STS - Dr. Linnette Colin Derm Staff and his team is following with insurance. I will touch base with them on Monday. Signed: Steve Crews MD Attending, Associate Staff Department of Hospital Medicine [facility] PROTIME Collected: 07/19/2018 Status: F Source: [place] 5:10 AM [facility] REPOSITORY TYPE CODE TESTS RESULT OUT OF RANGE REFERENCE UNITS LAB PSEC 9.7-13.0 sec High PT Sec 35.0 LAB INR 0.9-1.3 High PT INR 3.6 Result Comment: Vitamin K Antagonist (VKA) Therapeutic Range: INR 2 to 3 (Target INR of 2.5) Note: For patients treated with VKA drugs, such as warfarin, the [employer] 2012 Guideline recommends [...] Chest 2012, 141:7S-47S Diogenes RESENDIZ, et al. JACC 2017, 70: 252-289 Performed By: #### PT #### [facility] [address] [place], [place] [address] CONSULT PROG Observed: 07/18/2018 Status: COMPLETED Source: [place] 3:20 PM [facility] REPOSITORY HNO ID: [id number] Author: Ros Amezquita Service: Dermatology Author Type: Resident Type: Consult Progress Note Filed: 07/18/2018 3:25 PM Note Text: Attestation signed by Morteza Ocampo at 07/19/2018 1:02 PM I have seen and examined Ms. Cannon. I have discussed the case and the management of this patient's care with the Resident. Patient has had some pain relief with the STS infusions. Recommend continuing current regimen as outpatient as soon as this is possible I also have reviewed and agree with the assessment and plan as stated above and agree with all of its relevant components. There were no procedures performed during this patient's visit. Morteza Ocampo MD DERMATOLOGY HOSPITAL CONSULT SERVICE PROGRESS NOTE Interval Events - No acute events overnight - Pain much better controlled today PHYSICAL EXAM BP 112/67 Pulse 82 Temp 37.3 ?C (99.2 ?F) (Oral) Resp 17 Ht 160 cm (5' 3) Wt 106.5 kg (234 lb 12.6 oz) SpO2 98% BMI 41.59 kg/m? Skin type: I GEN: awake, no acute distress Skin examination of the BLE including feet and was pertinent for: - Left lower leg with well demarcated ulceration with surrounding induration. No purulent discharge. LABORATORY TESTS: CBC: Recent Labs 07/17/18 0431 07/14/18 0516 WBC 4.11 3.22* HB 9.4* 8.5* HCT 30.2* 27.6* PLT 118* 113* MCV 88.6 89.0 RDWCV 15.5* 16.0* COAG: Recent Labs 07/18/18 0524 07/16/18 0548 07/15/18 0717 07/14/18 0516 07/12/18 0454 INR 4.1* 3.3* 3.5* 3.5* 2.7* BMP: Recent Labs 07/17/18 0431 07/14/18 0516 GLUC 133* 83 NA 140 142 K 3.5* 4.2 CHLOR 96* 105 CO2 31* 26 ANION 13 11 BUN 23* 17 CREAT 1.10* 0.92 CHEM: Recent Labs 07/17/18 0431 07/14/18 0516 CA 8.6 9.1 FINAL DIAGNOSIS A. Skin, left leg, punch biopsy - Calciphylaxis (see comment). MP/CE/rw 06/27/2018 COMMENT Histologic sections demonstrate an effaced epidermis. The underlying dermis is fibrotic with vertically oriented blood vessels consistent with scar. Within the subcutis, there is extensive calcium deposition within the fat lobules and in the valente of small vessels within the subcutis. Additionally, there is stippled extracellular calcium. These histologic features are compatible with the clinical impression of calciphylaxis. A/P: Ms Cannon is a 28 year old female with a PMHx of antiphyospholipid syndrome on coumadin AND plasmapheresis, PAD, DVT, ?HFrEF,?CKD, calciphylaxis (diagnosed in February 2018 after being admitted for antiphospholipid syndrome). Patient has been unable to obtain outpatient coverage for STS despite appeal made by dermatology and is now admitted for worsening pain from LLE ulceration. Currently on IV sodium thiosulfate 25 g T, Th, Sat. Pamidronate started on 06/28/18- stopped due to ?allergic reaction (tingling in toes, no respiratory distress). Tolerated well on 06/29/18 with pre-medication with benadryl AND steroids. Disease likely aggravated by the fact that patient is still on warfarin. ? Plan - Continue STS 25 g three times weekly - Continue IV pamidronate 30 mg weekly - Insurance denial letter reviewed- STS was denied as requested drug is produced by a nonparticipating traffic sign supervisor. - Patient states she talked to her insurance company and pamidronate will reportedly be covered. She is wondering if she can get infusions at [facility] oncology center in [place] vs [facility]. [facility] infusion center has agreed to do the infusions for her; however, we are still waiting on insurance approval for the Pamidronate and possibly, but less likely STS - Local oncologist found to oversee patient's infusions; still awaiting coverage for pamidronate -Patient seen and discussed with staff gyroscopic instrument tester Dr. Linnette Amezquita MD Dermatology Resident July 18, 2018 PROGRESS Observed: 07/18/2018 Status: COMPLETED Source: [place] 2:40 PM [facility] REPOSITORY HNO ID: [id number] Author: Steve Crews Service: General Internal Medicine Author Type: Physician Type: Progress Notes Filed: 07/18/2018 11:23 PM Note Text: Medicine [place] - Vipul Terry Progress Note PATIENT NAME: Paloma Cannon Service date and time: 07/18/2018, 2:40 PM Admit Date Length of stay: 06/22/2018 25 day(s) Plan for Today -continue sodium thiosulfate for calciphylaxis -nutrition consult -hold warfarin today, will resume 5mg tomorrow -continue APAP, duloxetine, pregabalin for pain control. -carvedilol, losartan, nifedipine, torsemide PRN -pet therapy, art therapy while dispo planning Interval Events -NAOE -VSS -No 24h prn pain medications -INR 4.1 -weight 235 (from 195 on admission) Medications Current hospital medications: [START ON 07/19/2018] warfarin 5 mg tab(s) (COUMADIN) 5 mg ORAL/FEEDING TUBE DAILY - WARFARIN calcium gluconate 300 mg injection 300 mg INTRAVENOUS APHERESIS PRN calcium carbonate 1,000 mg chewable tab(s) (TUMS) 1,000 mg ORAL APHERESIS PRN HYDROmorphone 2 mg tab(s) (DILAUDID) 2 mg ORAL DAILY PRN pregabalin 150 mg cap(s) (LYRICA) 150 mg ORAL TID diphenhydrAMINE 50 mg injection (BENADRYL) 50 mg INTRAVENOUS APHERESIS PRN hydrocortisone sodium succinate (PF) 200 mg injection (Solu- CORTEF) 200 mg INTRAVENOUS APHERESIS PRN sodium citrate 4% 3-6 mL catheter lock 3-6 mL INTRALUMINAL APHERESIS PRN lidocaine 5 % 1 Patch (LIDODERM) 1 Patch TRANSDERMAL DAILY lidocaine patch - REMOVE OTHER AT BEDTIME lidocaine - VERIFY PATCH OTHER q 8 H miconazole 2 % 1 application topical powder (LOTRIMIN AF, DESENEX) 1 application TOPICAL BID pamidronate 30 mg in NaCl 0.9% 1,000 mL (AREDIA) 30 mg INTRAVENOUS q 1 WEEK acetaminophen 650 mg tab(s) (TYLENOL) 650 mg ORAL q 6 H PRN losartan 25 mg tab(s) (COZAAR) 25 mg ORAL DAILY DULoxetine (CYMBALTA) cap(s) 90 mg 90 mg ORAL DAILY meperidine (PF) 25 mg injection (DEMEROL) 25 mg INTRAVENOUS q 6 H PRN sodium citrate 4% 3-6 mL catheter lock 3-6 mL INTRALUMINAL APHERESIS PRN sodium hypochlorite topical irrigation 0.25% (DAKINS HALF-STRENGTH) IRRIGATION DAILY NaCl 0.9% 10 mL 10 mL INTRAVENOUS q 12 H NaCl 0.9% 20 mL 20 mL INTRAVENOUS PRN NaCl 0.9% 2-10 mL 2-10 mL INTRAVENOUS q 12 H carvedilol 12.5 mg tab(s) (COREG) 12.5 mg ORAL BID w MEALS cetirizine 10 mg tab(s) (ZyrTEC) 10 mg ORAL BID NIFEdipine ER 60 mg tab(S) (PROCARDIA XL) 60 mg ORAL DAILY pantoprazole DR 40 mg tab(s) (PROTONIX) 40 mg ORAL DAILY (6 AM) warfarin order for discharge OTHER PRN sodium thiosulfate 25 g in D5W 250 mL 25 g INTRAVENOUS q 1800 ondansetron (PF) 4 mg injection (ZOFRAN) 4 mg INTRAVENOUS q 8 H PRN hydrocortisone sodium succinate (PF) 100 mg injection (Solu- CORTEF) 100 mg INTRAVENOUS q 6 H PRN diphenhydrAMINE 50 mg (BENADRYL) 50 mg ORAL q 6 H PRN Physical Exam BP 112/67 Pulse 82 Temp 37.3 ?C (99.2 ?F) (Oral) Resp 17 Ht 160 cm (5' 3) Wt 106.5 kg (234 lb 12.6 oz) SpO2 98% BMI 41.59 kg/m? General: no acute distress Neuro: moving all 4 extremities, no gross motor deficits Cardiac: RRR. Normals S1, S2. No gallops or murmurs. Pulm: CTA b/l in all lung ceballos. No w/r/c Abd: No distension. Nontender to palpation. Normal bowel sounds. No hepatosplenomegaly Ext:?No lower extremity edema.?2+ radial pulses b/l. Left medial thigh wound w/ dressing clean/dry/intact Fluid Balance Intake/Output 07/14/18 0700 - 07/15/18 0659 07/15/18 0700 - 07/16/18 0659 07/16/18 0700 - 07/17/18 0659 07/17/18 0700 - 07/18/18 0659 Intake (ml) 1030 1120 1070 840 Output (ml) 3100 -- 0 0 Net (ml) -2070 1120 1070 840 Labs CBC: Recent Labs 07/17/18 0431 07/14/18 0516 WBC 4.11 3.22* HB 9.4* 8.5* HCT 30.2* 27.6* PLT 118* 113* MCV 88.6 89.0 RDWCV 15.5* 16.0* COAG: Recent Labs 07/18/18 0524 07/16/18 0548 07/15/18 0717 07/14/18 0516 07/12/18 0454 INR 4.1* 3.3* 3.5* 3.5* 2.7* BMP: Recent Labs 07/17/18 0431 07/14/18 0516 GLUC 133* 83 NA 140 142 K 3.5* 4.2 CHLOR 96* 105 CO2 31* 26 ANION 13 11 BUN 23* 17 CREAT 1.10* 0.92 CHEM: Recent Labs 07/17/18 0431 07/14/18 0516 CA 8.6 9.1 HEPATIC: No results for input(s): ALKPHOS, ALT, AST, TBILI, LIPASE in the last 168 hours. URINALYSIS:No results for input(s): PH, SPGR, UGLUC, UBILI, UKET, UHB, UPROT, UROBIL, UWBC, SSA in the last 168 hours. Invalid input(s): NITR CARDIAC: No results for input(s): CKTEST, CKMB, CKMBP, TROPT, PBNP in the last 168 hours. Assessment and Plan 28 yo F who presented with calciphylaxis related left leg pain on 06/22/19. ? 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 Seizure - on keppra 250mg TID ? # Calciphylaxis -06/26/18 left leg skin biopsy: effaced epidermis, underlying dermis is fibrotic with vertically oriented blood vessels consistent with scar. Within the subcutis, there is extensive calcium deposition within the fat lobules and in the valente of small vessels within the subcutis. Additionally, there is stippled extracellular calcium. Findings compatible with the clinical impression of Calciphylaxis. -Home meds: pamidronate qwk, sodium thiosulfate 12.5 g 3x/wk -Unable to get sodium thiosulfate as an outpatient -Worsening pain ? Plan -Sodium thiosulfate ?- 25g in 250ml D5W infused over 1 hour ?- Monitor Vital signs during infusion given (low) risk of hypotension ?- BMP once per week to check for anion gap metabolic acidosis ?PRN during infusion:?- Acetaminophen 650mg PRN as needed for headache (will premedicate with acetaminophen if headaches are frequent) ?- Diphenhydramine 50 mg IV PRN hypotension, shortness of breath or bronchospasm ?- Meperidine 25 mg Injection PRN for rigors ?- Stop infusion if either hypotension or rigors occur. Solu-cortef 100mg IV and normal saline as needed for hypotension ?- Ondansetron 8 mg IV PRN Nausea/Vomiting (will premedicate with ondansetron if nausea/vomiting frequent) -Pain management recs: weaning Dilaudid. Methadone d/c'd -Dermatology consulted, punch biopsy obtained - sutures will need to be removed -IV pamidronate 30 mg q Monday -Wound care per dermatology: washing with saline wound wash, packing with daikin soaked gauze, gauze and tape - PLEX 07/23/18 ? 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 Has received stenting of IVC and iliacs along with endograft of IVC. - C/B extensive RP bleed s/p L2, L3 embolization. 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 - APS causing hepatic vein thrombosis, caval/ileo/femoral DVT (09/2013) s/p L common/external vein stent placement, IVC thrombectomy, placement of endoglix AFX endograft at inferior vena cava bifurcation and bilateral SFA to saphenous vein fistulas - past surgeries: per notes: 09/18/2013 - IVC thrombectomy; 09/25/2013 - left and right common iliac/external iliac bein stending, Endoglix AFX endograft at the IVC bifurcation placed; 09/26/13 -09/29/13- left and right proximal superficial artery to first branch of greater saphenous vein AV fistula; 10/01/13- femoropopliteal endovascular thrombectomies; 02/02/18: ?ligation of LLE SFA to GSV fistula; 02/12/18: left groin debridement -Home meds: Typically takes 5 mg warfarin daily, except 7.5 mg on the day of PLEX and 1-2 days following ? Plan -warfarin titration, recently supratherapeutic - APAP 650mg PO 4x/day PRN - Cymbalta to 90mg PO qAM - Lyrica 150 mg TID ? #HFrEF #HTN -03/14/18 ILEANA: EF 45%, LV mildly dilated, LA cavity is dilated, 2+ TR, 2-3+ AR, mobile echodensities originating in the SVC extending into the right atrium most consistent with a moderate to large burden or residual thrombus from a prior central venous catheter. No evidence of endocarditis. -05/06 renal venous US showed occlusive thrombus througout the IVC. Minimal venous flow in the kidney -Home meds: losartan 12.5mg daily, nifedipine 60mg daily, torsemide 20mg q8h PRN, carvedilol 12.5mg BID ? Plan -Continue home nifedipine, carvedilol, losartan ? Chronic conditions #Hx seasonal allergies / Hives - Continue home certirizine, Diphenhydramine prn #GERD - Continue home pantoprazole ? # Diet: regular # Dispo:?Per 1/4 CM note: awaiting Insurance Authorization (scheduling to infusion center), Has Home O2 2l/NC form [employer], Awaiting approval of pamidronate in addition to ??na thiosulfate ( denied coverage) by insurance, and scheduling at [facility] infusion center rather than [place] at pt request.Dermatology arranging. ?PT recs OP PT Lines, Drains, and Airways Line Central Line Single Lumen Tunneled Left Chest -- days Dialysis / Apheresis Double Lumen 03/17/18 1000 Admission to Hospital Tunneled Left Chest 123 days Anticoagulant AND Antiplatelet Medications Start Dose Route Frequency Ordered Stop 07/19/18 1700 warfarin 5 mg tab(s) (COUMADIN) 5 mg PO/FT DAILY - WARFARIN 07/18/18 0747 -- Jose Elias Mir M.D. Internal Button Sewing Machine Operator, PGY I NIGHT AND WEEKEND COVERAGE: Days: [phone], please page me [phone] for patient issues. Nights: After 5PM on weekdays and 3PM on weekends, please page [phone]. ATTENDING PHYSICIAN: Patient seen and evaluated today Fernandes elements of history and physical examination of the patient were confirmed. The assessment and plan were formulated and discussed with the team on Rounds. I reviewed the resident's note, examined the patient and agree with the documented findings and plan of care. Calciphylaxis, Antiphospholipid Syndrome Home when Na Thiosulfate arranged for out-patient infusion cont on torsemide (home meds), weigh daily, fluid restriction 1400 ml. Cont on pain control - but difficult. Cont Lyrica. Hold todays coumadin and restart on lower dose of coumadin for now. Monitor INR. Discussed Insurance coverage for STS - Dr. Linnette Colin Derm Staff and his team is following with insurance. I will touch base with them on Monday. Signed: Steve Crews MD Attending, Associate Staff Department of Hospital Medicine [facility] PROTIME Collected: 07/18/2018 Status: F Source: [place] 5:24 AM [facility] REPOSITORY TYPE CODE TESTS RESULT OUT OF RANGE REFERENCE UNITS LAB PSEC 9.7-13.0 sec High PT Sec 38.9 LAB INR 0.9-1.3 High PT INR 4.1 Result Comment: Vitamin K Antagonist (VKA) Therapeutic Range: INR 2 to 3 (Target INR of 2.5) Note: For patients treated with VKA drugs, such as warfarin, the [place] [employer] 2012 Guideline recommends [...] Chest 2012, 141:7S-47S Diogenes RA, et al. [facility] 2017, 70: 252-289 Performed By: #### PT #### [facility] [address] [address] NUTRITION Observed: 07/17/2018 Status: COMPLETED Source: [place] 2:31 PM [facility] REPOSITORY HNO ID: [id number] Author: Anahi Mai (Diet-T) Service: Nutrition Therapy Author Type: Protective Signal Installer Helper Type: Nutrition Filed: 07/17/2018 2:33 PM Note Text: NUTRITION THERAPY FOLLOW-UP NOTE SERVICE DATE: 07/17/2018 SERVICE TIME: 1325 Anthropometrics: Height: 160 cm (5' 3) Current Weight: Weight: 106.5 kg (234 lb 12.6 oz) Body mass index is 41.59 kg/m?. Loss of lean body mass/visual muscle wasting: no Admitting Diagnosis: Calciphylaxis of left lower extremity with nonhealing ulcer with fat layer exposed (HCC) [E83.59, L97.922] Present Diet Order: Regular and Fluid restriction of 1400ml/day Is the patient having any pain that [...] Current intake of meals: 75 - 100% Follow-up: Intervention from Tech reassessment Patient concerns/Issues: The patient states she is eating well. Snacks and supplements were declined. Vouchers were ordered for 1 meal a day. The patient has a stage 2 pressure ulcer on her left ankle. She states that happened when she was intubated. Will continue to monitor. Nursing Admission Assessment Malnutrition Score Tool: 1 Plan of Care: Recommendation No problems noted at this time. Will screen again within 7 days Discharge Plan: Regular MNT Billing Type: Routine Care/15 min 1 unit SIGNATURE: Anahi Mai DTR CDLauren PATIENT NAME: Paloma Cannon DATE: July 17, 2018 TIME: 2:31 PM PAGER: [phone] CASE MANAGEM Observed: 07/17/2018 Status: COMPLETED Source: [place] 9:14 AM [facility] [place] REPOSITORY HNO ID: [id number] Author: Jacinta Aguilar (Rn) JEFF Olmedo Service: Care Management Author Type: Registered Nurse Type: Care Mgt Progress Note Filed: 07/17/2018 9:17 AM Note Text: CARE MANAGEMENT PROGRESS NOTE SERVICE DATE: 07/17/2018 SERVICE TIME: 9:15 AM LOS: 24 days Needs Prior to Discharge: Insurance Authorization (scheduling to infusion center) Dc date TBD. Current on 2LO2/nc. Has Home O2 2l/NC form [employer]. May need assist w car t/p home if discharged on Thurs/Sat or Sun. Awaiting approval of pamidronate in addition to na thiosulfate ( denied coverage) by insurance, and scheduling at [facility] OP infusion center rather than [facility] at pt request.Dermatology arranging and confirmed yesterday approval attempts in process. CM Farm General Manager updated. PT recs OP PT. CM to continue to follow SIGNATURE: Jacinta Olmedo RN PATIENT NAME: Paloma Cannon DATE: July 17, 2018 TIME: 9:14 AM PAGER/CONTACT #: [phone] PROGRESS Observed: 07/17/2018 Status: COMPLETED Source: [place] 6:54 AM [facility] REPOSITORY HNO ID: [id number] Author: Steve Crews Service: General Internal Medicine Author Type: Physician Type: Progress Notes Filed: 07/18/2018 3:19 AM Note Text: Medicine [place] - Vipul Terry Progress Note PATIENT NAME: Paloma Cannon Service date and time: 07/17/2018, 6:54 AM Admit Date Length of stay: 06/22/2018 24 day(s) Plan for Today -continue sodium thiosulfate for calciphylaxis -warfarin 5mg -continue APAP, duloxetine, pregabalin for pain control. -carvedilol, losartan, nifedipine, torsemide -pet therapy, art therapy while dispo planning -replete K Interval Events -NAOE -no complaints, no pain, did not require any pain meds. Keeping busy reading and playing video games. In good spirits -warfarin 5 > 2.5 > 5 > 2.5 -afebrile (Tmax 37.2), HR 75-87, RR 17-18, BP 99/54?118/60, SpO2 96-100 on 2L NC -WBC 4.11, hgb 9.4 (from 8.5), hct 30.2, plt 118 (stable) -Na 140, K 3.5 (from 4.2), Cl 96, bicarb 31 (from 26), Cr 1.10 (stable) -1 BM yesterday, 0 emesis -24h PRN meds: 0 tylenol, 0 dilaudid, 0 lidocaine patch Medications Current hospital medications: warfarin 5 mg tab(s) (COUMADIN) 5 mg ORAL/FEEDING TUBE DAILY - WARFARIN calcium gluconate 300 mg injection 300 mg INTRAVENOUS APHERESIS PRN calcium carbonate 1,000 mg chewable tab(s) (TUMS) 1,000 mg ORAL APHERESIS PRN HYDROmorphone 2 mg tab(s) (DILAUDID) 2 mg ORAL DAILY PRN torsemide 20 mg tab(s) (DEMADEX) 20 mg ORAL BID pregabalin 150 mg cap(s) (LYRICA) 150 mg ORAL TID diphenhydrAMINE 50 mg injection (BENADRYL) 50 mg INTRAVENOUS APHERESIS PRN hydrocortisone sodium succinate (PF) 200 mg injection (Solu- CORTEF) 200 mg INTRAVENOUS APHERESIS PRN sodium citrate 4% 3-6 mL catheter lock 3-6 mL INTRALUMINAL APHERESIS PRN lidocaine 5 % 1 Patch (LIDODERM) 1 Patch TRANSDERMAL DAILY lidocaine patch - REMOVE OTHER AT BEDTIME lidocaine - VERIFY PATCH OTHER q 8 H miconazole 2 % 1 application topical powder (LOTRIMIN AF, DESENEX) 1 application TOPICAL BID pamidronate 30 mg in NaCl 0.9% 1,000 mL (AREDIA) 30 mg INTRAVENOUS q 1 WEEK acetaminophen 650 mg tab(s) (TYLENOL) 650 mg ORAL q 6 H PRN losartan 25 mg tab(s) (COZAAR) 25 mg ORAL DAILY DULoxetine (CYMBALTA) cap(s) 90 mg 90 mg ORAL DAILY meperidine (PF) 25 mg injection (DEMEROL) 25 mg INTRAVENOUS q 6 H PRN sodium citrate 4% 3-6 mL catheter lock 3-6 mL INTRALUMINAL APHERESIS PRN sodium hypochlorite topical irrigation 0.25% (DAKINS HALF-STRENGTH) IRRIGATION DAILY NaCl 0.9% 10 mL 10 mL INTRAVENOUS q 12 H NaCl 0.9% 20 mL 20 mL INTRAVENOUS PRN NaCl 0.9% 2-10 mL 2-10 mL INTRAVENOUS q 12 H carvedilol 12.5 mg tab(s) (COREG) 12.5 mg ORAL BID w MEALS cetirizine 10 mg tab(s) (ZyrTEC) 10 mg ORAL BID NIFEdipine ER 60 mg tab(S) (PROCARDIA XL) 60 mg ORAL DAILY pantoprazole DR 40 mg tab(s) (PROTONIX) 40 mg ORAL DAILY (6 AM) warfarin order for discharge OTHER PRN sodium thiosulfate 25 g in D5W 250 mL 25 g INTRAVENOUS q 1800 ondansetron (PF) 4 mg injection (ZOFRAN) 4 mg INTRAVENOUS q 8 H PRN hydrocortisone sodium succinate (PF) 100 mg injection (Solu- CORTEF) 100 mg INTRAVENOUS q 6 H PRN diphenhydrAMINE 50 mg (BENADRYL) 50 mg ORAL q 6 H PRN Physical Exam BP 110/58 Pulse 84 Temp 37.2 ?C (98.9 ?F) (Oral) Resp 17 Ht 160 cm (5' 3) Wt 106.5 kg (234 lb 12.6 oz) SpO2 98% BMI 41.59 kg/m? General: no acute distress Neuro: moving all 4 extremities, no gross motor deficits Cardiac: RRR. Normals S1, S2. No gallops or murmurs. Pulm: CTA b/l in all lung ceballos. No w/r/c Abd: No distension. Nontender to palpation. Normal bowel sounds. No hepatosplenomegaly Ext:?No lower extremity edema. 2+ radial pulses b/l. Left medial thigh wound w/ dressing clean/dry/intact Fluid Balance Intake/Output 07/13/18 0700 - 07/14/18 0659 07/14/18 0700 - 07/15/18 0659 07/15/18 0700 - 07/16/18 0659 07/16/18 0700 - 07/17/18 0659 Intake (ml) 370.5 1030 1120 1070 Output (ml) 2300 3100 -- 0 Net (ml) -1929.5 -2070 1120 1070 Labs CBC: Recent Labs 07/17/18 0431 07/14/18 0516 07/11/18 0508 WBC 4.11 3.22* 4.46 HB 9.4* 8.5* 9.2* HCT 30.2* 27.6* 29.7* PLT 118* 113* 112* MCV 88.6 89.0 89.5 RDWCV 15.5* 16.0* 16.0* COAG: Recent Labs 07/16/18 0548 07/15/18 0717 07/14/18 0516 07/12/18 0454 07/11/18 0508 INR 3.3* 3.5* 3.5* 2.7* 2.4* BMP: Recent Labs 07/17/18 0431 07/14/18 0516 07/11/18 0508 GLUC 133* 83 83 NA 140 142 143 K 3.5* 4.2 3.7 CHLOR 96* 105 100 CO2 31* 26 29 ANION 13 11 14 BUN 23* 17 19 CREAT 1.10* 0.92 1.08* CHEM: Recent Labs 07/17/18 0431 07/14/18 0516 07/11/18 0508 CA 8.6 9.1 8.7 HEPATIC: No results for input(s): ALKPHOS, ALT, AST, TBILI, LIPASE in the last 168 hours. URINALYSIS:No results for input(s): PH, SPGR, UGLUC, UBILI, UKET, UHB, UPROT, UROBIL, UWBC, SSA in the last 168 hours. Invalid input(s): NITR CARDIAC: No results for input(s): CKTEST, CKMB, CKMBP, TROPT, PBNP in the last 168 hours. Assessment and Plan 28 yo F who presented with calciphylaxis related left leg pain on 06/22/19. ? 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 Seizure - on keppra 250mg TID ? # Calciphylaxis -06/26/18 left leg skin biopsy: effaced epidermis, underlying dermis is fibrotic with vertically oriented blood vessels consistent with scar. Within the subcutis, there is extensive calcium deposition within the fat lobules and in the valente of small vessels within the subcutis. Additionally, there is stippled extracellular calcium. Findings compatible with the clinical impression of Calciphylaxis. -Home meds: pamidronate qwk, sodium thiosulfate 12.5 g 3x/wk -Unable to get sodium thiosulfate as an outpatient -Worsening pain ? Plan -Sodium thiosulfate ?- 25g in 250ml D5W infused over 1 hour ?- Monitor Vital signs during infusion given (low) risk of hypotension ?- BMP once per week to check for anion gap metabolic acidosis ?PRN during infusion:?- Acetaminophen 650mg PRN as needed for headache (will premedicate with acetaminophen if headaches are frequent) ?- Diphenhydramine 50 mg IV PRN hypotension, shortness of breath or bronchospasm ?- Meperidine 25 mg Injection PRN for rigors ?- Stop infusion if either hypotension or rigors occur. Solu-cortef 100mg IV and normal saline as needed for hypotension ?- Ondansetron 8 mg IV PRN Nausea/Vomiting (will premedicate with ondansetron if nausea/vomiting frequent) -Pain management recs: weaning Dilaudid. Methadone d/c'd -Dermatology consulted, punch biopsy obtained - sutures will need to be removed -IV pamidronate 30 mg q Monday -Wound care per dermatology: washing with saline wound wash, packing with daikin soaked gauze, gauze and tape - PLEX 07/23/18 ? 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 Has received stenting of IVC and iliacs along with endograft of IVC. - C/B extensive RP bleed s/p L2, L3 embolization. 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 - APS causing hepatic vein thrombosis, caval/ileo/femoral DVT (09/2013) s/p L common/external vein stent placement, IVC thrombectomy, placement of endoglix AFX endograft at inferior vena cava bifurcation and bilateral SFA to saphenous vein fistulas - past surgeries: per notes: 09/18/2013 - IVC thrombectomy; 09/25/2013 - left and right common iliac/external iliac bein stending, Endoglix AFX endograft at the IVC bifurcation placed; 09/26/13 -09/29/13- left and right proximal superficial artery to first branch of greater saphenous vein AV fistula; 10/01/13- femoropopliteal endovascular thrombectomies; 02/02/18: ?ligation of LLE SFA to GSV fistula; 02/12/18: left groin debridement -Home meds: Typically takes 5 mg warfarin daily, except 7.5 mg on the day of PLEX and 1-2 days following ? Plan -decreased dose to 2.5mg on 07/15 due to supratherapeutic INR, remains supratherapeutic will decrease to 2.5mg again - APAP 650mg PO 4x/day PRN - Cymbalta to 90mg PO qAM - Lyrica 150 mg TID ? #HFrEF #HTN -03/14/18 ILEANA: EF 45%, LV mildly dilated, LA cavity is dilated, 2+ TR, 2-3+ AR, mobile echodensities originating in the SVC extending into the right atrium most consistent with a moderate to large burden or residual thrombus from a prior central venous catheter. No evidence of endocarditis. -05/06 renal venous US showed occlusive thrombus througout the IVC. Minimal venous flow in the kidney -Home meds: losartan 12.5mg daily, nifedipine 60mg daily, torsemide 20mg q8h PRN, carvedilol 12.5mg BID ? Plan -Continue home nifedipine, carvedilol, losartan ? Chronic conditions #Hx seasonal allergies / Hives - Continue home certirizine, Diphenhydramine prn #GERD - Continue home pantoprazole ? # Diet: regular # Dispo: Per 07/13 CM note: awaiting Insurance Authorization (scheduling to infusion center), Has Home O2 2l/[place] form [employer], Awaiting approval of pamidronate in addition to ??na thiosulfate ( denied coverage) by insurance, and scheduling at [facility] OP infusion center rather than [facility] at pt request.Dermatology arranging. ?PT recs OP PT Lines, Drains, and Airways Line Central Line Single Lumen Tunneled Left Chest -- days Dialysis / Apheresis Double Lumen 03/17/18 1000 Admission to Hospital Tunneled Left Chest 121 days Anticoagulant AND Antiplatelet Medications Start Dose Route Frequency Ordered Stop 07/17/18 1700 warfarin 5 mg tab(s) (COUMADIN) 5 mg PO/FT DAILY - WARFARIN 07/16/18 0749 -- Jose Elias Mir M.D. Internal Button Sewing Machine Operator, PGY I NIGHT AND WEEKEND COVERAGE: Days: [phone], please page me [phone] for patient issues. Nights: After 5PM on weekdays and 3PM on weekends, please page [phone]. ATTENDING PHYSICIAN: Patient seen and evaluated today Fernandes elements of history and physical examination of the patient were confirmed. The assessment and plan were formulated and discussed with the team on Rounds. I reviewed the resident's note, examined the patient and agree with the documented findings and plan of care. Calciphylaxis, Antiphospholipid Syndrome Home when Na Thiosulfate arranged for out-patient infusion cont on torsemide (home meds), weigh daily, fluid restriction 1400 ml. Cont on pain control - but difficult. Cont Lyrica. Cont on lower dose of coumadin for now. Monitor INR. Discussed Insurance coverage for STS - Dr. Linnette Colin Derm Staff and his team is following with insurance. I will touch base with them on Monday. Signed: Steve Crews MD Attending, Associate Staff Department of Hospital Medicine [facility] CBC Collected: 07/17/2018 Status: F Source: [place] 4:31 AM [facility] REPOSITORY TYPE CODE TESTS RESULT OUT OF REFERENCE UNITS RANGE LAB WBC 3.70-11.00 k/uL WBC 4.11 LAB RBC 3.90-5.20 m/uL Low RBC 3.41 LAB HGB 11.5-15.5 g/dL Low Hemoglobin 9.4 LAB HCT 36.0-46.0 % Low Hematocrit 30.2 LAB MCV 80.0-100.0 fL MCV 88.6 LAB MCH 26.0-34.0 pG MCH 27.6 LAB MCHC 30.5-36.0 g/dL MCHC 31.1 LAB RDWCV 11.5-15.0 % RDW-CV High 15.5 LAB PLTCT 150-400 k/uL Low Platelet Count 118 LAB MPV 9.0-12.7 fL MPV 11.0 LAB ABSNUC <0.01 k/uL Absolute nRBC <0.01 Performed By: #### CBC, BMP #### [facility] [address] [place], [place] [address] BASIC METABOLIC PANL Collected: 07/17/2018 Status: F Source: [place] 4:31 AM [facility] REPOSITORY TYPE CODE TESTS RESULT OUT OF REFERENCE UNITS RANGE LAB GLU 74-99 mg/dL High Glucose 133 Result Comment: The [place] [employer] (ADA) provides guidance for cutoff [...] Standards of Medical Care in Diabetes 2016, [place] [employer]. Diabetes Care. 2016.39(Suppl 1). LAB BUN 7-21 mg/dL BUN High 23 LAB CRET 0.58-0.96 mg/dL Creatinine High 1.10 LAB NA 136-144 mmol/L Sodium 140 LAB K 3.7-5.1 mmol/L Low Potassium 3.5 LAB CL 97-105 mmol/L Low Chloride 96 LAB CO2 22-30 mmol/L CO2 High 31 LAB AGAP 9-18 mmol/L Anion Gap 13 [...] GFR. Performed By: #### CBC, BMP #### [facility] [address] [place], [place] [address] PROTIME Collected: 07/16/2018 Status: F Source: [place] 5:48 AM [facility] REPOSITORY TYPE CODE TESTS RESULT OUT OF RANGE REFERENCE UNITS LAB PSEC 9.7-13.0 sec High PT Sec 32.2 LAB INR 0.9-1.3 High PT INR 3.3 Result Comment: Vitamin K Antagonist (VKA) Therapeutic Range: INR 2 to 3 (Target INR of 2.5) Note: For patients treated with VKA drugs, such as warfarin, the [place] [employer] 2012 Guideline recommends [...] Chest 2012, 141:7S-47S Diogenes RA, et al. [facility] 2017, 70: 252-289 Performed By: #### PT #### [facility] [address] [place], [place] [address] PROGRESS Observed: 07/15/2018 Status: COMPLETED Source: [place] 9:20 PM [facility] REPOSITORY HNO ID: [id number] Author: Steve Crews Service: General Internal Medicine Author Type: Physician Type: Progress Notes Filed: 07/17/2018 1:42 AM Note Text: Medicine [place] - Vipul Terry Progress Note PATIENT NAME: Paloma Cannon Service date and time: 07/16/2018 Admit Date Length of stay: 06/22/2018 23 day(s) Plan for Today -continue sodium thiosulfate for calciphylaxis -decrease warfarin to 2.5mg in setting of supratherapeutic INR x2d (3.5 > 3.3) -continue APAP, duloxetine, pregabalin for pain control. Increase lyrica? -carvedilol, losartan, nifedipine, torsemide -pet therapy while dispo planning Interval Events -No acute overnight events. Reviewed nursing notes. -Pain well controlled overnight, no complaints -afebrile (Tmax 37.3), HR 70-94, RR 18, BP 106/53-125/52, SpO2 97-99 on 2L NC -INR 3.3 -I/O: +1120ml, no UOP recorded, net +1120ml (since admission -2500ml) -24h PRN meds: 0 dilaudid, pain controlled on tylenol Medications Current hospital medications: calcium gluconate 300 mg injection 300 mg INTRAVENOUS APHERESIS PRN calcium carbonate 1,000 mg chewable tab(s) (TUMS) 1,000 mg ORAL APHERESIS PRN HYDROmorphone 2 mg tab(s) (DILAUDID) 2 mg ORAL DAILY PRN torsemide 20 mg tab(s) (DEMADEX) 20 mg ORAL BID warfarin 5 mg tab(s) (COUMADIN) 5 mg ORAL/FEEDING TUBE DAILY - WARFARIN pregabalin 150 mg cap(s) (LYRICA) 150 mg ORAL TID diphenhydrAMINE 50 mg injection (BENADRYL) 50 mg INTRAVENOUS APHERESIS PRN hydrocortisone sodium succinate (PF) 200 mg injection (Solu- CORTEF) 200 mg INTRAVENOUS APHERESIS PRN sodium citrate 4% 3-6 mL catheter lock 3-6 mL INTRALUMINAL APHERESIS PRN lidocaine 5 % 1 Patch (LIDODERM) 1 Patch TRANSDERMAL DAILY lidocaine patch - REMOVE OTHER AT BEDTIME lidocaine - VERIFY PATCH OTHER q 8 H miconazole 2 % 1 application topical powder (LOTRIMIN AF, DESENEX) 1 application TOPICAL BID pamidronate 30 mg in NaCl 0.9% 1,000 mL (AREDIA) 30 mg INTRAVENOUS q 1 WEEK acetaminophen 650 mg tab(s) (TYLENOL) 650 mg ORAL q 6 H PRN losartan 25 mg tab(s) (COZAAR) 25 mg ORAL DAILY DULoxetine (CYMBALTA) cap(s) 90 mg 90 mg ORAL DAILY meperidine (PF) 25 mg injection (DEMEROL) 25 mg INTRAVENOUS q 6 H PRN sodium citrate 4% 3-6 mL catheter lock 3-6 mL INTRALUMINAL APHERESIS PRN sodium hypochlorite topical irrigation 0.25% (DAKINS HALF-STRENGTH) IRRIGATION DAILY NaCl 0.9% 10 mL 10 mL INTRAVENOUS q 12 H NaCl 0.9% 20 mL 20 mL INTRAVENOUS PRN NaCl 0.9% 2-10 mL 2-10 mL INTRAVENOUS q 12 H carvedilol 12.5 mg tab(s) (COREG) 12.5 mg ORAL BID w MEALS cetirizine 10 mg tab(s) (ZyrTEC) 10 mg ORAL BID NIFEdipine ER 60 mg tab(S) (PROCARDIA XL) 60 mg ORAL DAILY pantoprazole DR 40 mg tab(s) (PROTONIX) 40 mg ORAL DAILY (6 AM) warfarin order for discharge OTHER PRN sodium thiosulfate 25 g in D5W 250 mL 25 g INTRAVENOUS q 1800 ondansetron (PF) 4 mg injection (ZOFRAN) 4 mg INTRAVENOUS q 8 H PRN hydrocortisone sodium succinate (PF) 100 mg injection (Solu- CORTEF) 100 mg INTRAVENOUS q 6 H PRN diphenhydrAMINE 50 mg (BENADRYL) 50 mg ORAL q 6 H PRN Physical Exam BP 106/53 Pulse 83 Temp 37.1 ?C (98.7 ?F) (Oral) Resp 18 Ht 160 cm (5' 3) Wt 108 kg (238 lb 1.6 oz) SpO2 98% BMI 42.18 kg/m? General: no acute distress Neuro: moving all 4 extremities, no gross motor deficits Cardiac: RRR. Normals S1, S2. No gallops or murmurs. Pulm: CTA b/l in all lung ceballos. No w/r/c Abd: No distension. Nontender to palpation. Normal bowel sounds. No hepatosplenomegaly Ext:?No lower extremity edema. 2+ radial pulses b/l. Left medial thigh wound w/ dressing clean/dry/intact Fluid Balance Intake/Output 07/12/18 0700 - 07/13/18 0659 07/13/18 07 - 07/14/18 0659 07/14/18 0700 - 07/15/18 0659 07/15/18 07 - 07/16/18 0659 Intake (ml) 300 370.5 1030 1120 Output (ml) 1200 2300 3100 -- Net (ml) -900 -1929.5 -2070 1120 Labs CBC: Recent Labs 07/14/18 0516 07/11/18 0508 WBC 3.22* 4.46 HB 8.5* 9.2* HCT 27.6* 29.7* PLT 113* 112* MCV 89.0 89.5 RDWCV 16.0* 16.0* COAG: Recent Labs 07/15/18 0717 07/14/18 0516 07/12/18 0454 07/11/18 0508 07/10/18 0501 INR 3.5* 3.5* 2.7* 2.4* 2.1* BMP: Recent Labs 07/14/18 0516 07/11/18 0508 GLUC 83 83 NA 142 143 K 4.2 3.7 CHLOR 105 100 CO2 26 29 ANION 11 14 BUN 17 19 CREAT 0.92 1.08* CHEM: Recent Labs 07/14/18 0516 07/11/18 0508 CA 9.1 8.7 HEPATIC: No results for input(s): ALKPHOS, ALT, AST, TBILI, LIPASE in the last 168 hours. URINALYSIS:No results for input(s): PH, SPGR, UGLUC, UBILI, UKET, UHB, UPROT, UROBIL, UWBC, SSA in the last 168 hours. Invalid input(s): NITR CARDIAC: No results for input(s): CKTEST, CKMB, CKMBP, TROPT, PBNP in the last 168 hours. Assessment and Plan 28 yo F who presented with calciphylaxis related left leg pain on 06/22/19. 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 Seizure - on keppra 250mg TID ? # Calciphylaxis -06/26/18 left leg skin biopsy: effaced epidermis, underlying dermis is fibrotic with vertically oriented blood vessels consistent with scar. Within the subcutis, there is extensive calcium deposition within the fat lobules and in the valente of small vessels within the subcutis. Additionally, there is stippled extracellular calcium. Findings compatible with the clinical impression of Calciphylaxis. -Home meds: pamidronate qwk, sodium thiosulfate 12.5 g 3x/wk -Unable to get sodium thiosulfate as an outpatient -Worsening pain Plan -Sodium thiosulfate ?- 25g in 250ml D5W infused over 1 hour ?- Monitor Vital signs during infusion given (low) risk of hypotension ?- BMP once per week to check for anion gap metabolic acidosis ?PRN during infusion:?- Acetaminophen 650mg PRN as needed for headache (will premedicate with acetaminophen if headaches are frequent) ?- Diphenhydramine 50 mg IV PRN hypotension, shortness of breath or bronchospasm ?- Meperidine 25 mg Injection PRN for rigors ?- Stop infusion if either hypotension or rigors occur. Solu-cortef 100mg IV and normal saline as needed for hypotension ?- Ondansetron 8 mg IV PRN Nausea/Vomiting (will premedicate with ondansetron if nausea/vomiting frequent) -Pain management recs: weaning Dilaudid. Methadone d/c'd -Dermatology consulted, punch biopsy obtained - sutures will need to be removed -IV pamidronate 30 mg q Monday -Wound care per dermatology: washing with saline wound wash, packing with daikin soaked gauze, gauze and tape - PLEX 07/23/18 ? 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 Has received stenting of IVC and iliacs along with endograft of IVC. - C/B extensive RP bleed s/p L2, L3 embolization. 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 - APS causing hepatic vein thrombosis, caval/ileo/femoral DVT (09/2013) s/p L common/external vein stent placement, IVC thrombectomy, placement of endoglix AFX endograft at inferior vena cava bifurcation and bilateral SFA to saphenous vein fistulas - past surgeries: per notes: 09/18/2013 - IVC thrombectomy; 09/25/2013 - left and right common iliac/external iliac bein stending, Endoglix AFX endograft at the IVC bifurcation placed; 09/26/13 -09/29/13- left and right proximal superficial artery to first branch of greater saphenous vein AV fistula; 10/01/13- femoropopliteal endovascular thrombectomies; 02/02/18: ?ligation of LLE SFA to GSV fistula; 02/12/18: left groin debridement -Home meds: Typically takes 5 mg warfarin daily, except 7.5 mg on the day of PLEX and 1-2 days following Plan -decreased dose to 2.5mg on 07/15 due to supratherapeutic INR, remains supratherapeutic will decrease to 2.5mg again - APAP 650mg PO 4x/day PRN - Cymbalta to 90mg PO qAM - Lyrica 150 mg TID - Weaning Dilaudid ? #HFrEF #HTN -03/14/18 ILEANA: EF 45%, LV mildly dilated, LA cavity is dilated, 2+ TR, 2-3+ AR, mobile echodensities originating in the SVC extending into the right atrium most consistent with a moderate to large burden or residual thrombus from a prior central venous catheter. No evidence of endocarditis. -05/06 renal venous US showed occlusive thrombus througout the IVC. Minimal venous flow in the kidney -Home meds: losartan 12.5mg daily, nifedipine 60mg daily, torsemide 20mg q8h PRN, carvedilol 12.5mg BID Plan -Continue home nifedipine, carvedilol, losartan ? Chronic conditions #Hx seasonal allergies / Hives - Continue home certirizine, Diphenhydramine prn #GERD - Continue home pantoprazole ? # Diet: regular # Dispo: Per 07/13 CM note: awaiting Insurance Authorization (scheduling to infusion center), Has Home O2 2l/NC form [employer], Awaiting approval of pamidronate in addition to na thiosulfate ( denied coverage) by insurance, and scheduling at [facility] OP infusion center rather than [facility] at pt request.Dermatology arranging. PT recs OP PT Lines, Drains, and Airways Line Central Line Single Lumen Tunneled Left Chest -- days Dialysis / Apheresis Double Lumen 03/17/18 1000 Admission to Hospital Tunneled Left Chest 120 days Anticoagulant AND Antiplatelet Medications Start Dose Route Frequency Ordered Stop 07/15/18 1700 warfarin 5 mg tab(s) (COUMADIN) 5 mg PO/FT DAILY - WARFARIN 07/14/18 0602 -- Jose Elias Mir M.D. Internal Button Sewing Machine Operator, PGY I NIGHT AND WEEKEND COVERAGE: Days: [phone], please page ar [phone] for patient issues. Nights: After 5PM on weekdays and 3PM on weekends, please page [phone]. ATTENDING PHYSICIAN: Patient seen and evaluated today Fernandes elements of history and physical examination of the patient were confirmed. The assessment and plan were formulated and discussed with the team on Rounds. I reviewed the resident's note, examined the patient and agree with the documented findings and plan of care. Calciphylaxis, Antiphospholipid Syndrome Home when Na Thiosulfate arranged for out-patient infusion cont on torsemide (home meds), weigh daily, fluid restriction 1400 ml. Cont on pain control - but difficult. Cont Lyrica. Cont on lower dose of coumadin for now. Monitor INR. Discussed Insurance coverage for STS - Dr. Linnette Colin Derm Staff and his team is following with insurance. I will touch base with them on Monday. 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 Patient to use [facility] Bedside Delivery - YES 2. If fax, patient would like us to fax prescriptions to Pharmacy of choice a. Pharmacy: b. Location: c. Phone: 3. Insurance card on file - YES 4. Credit card for payment - N/A No prescriptions yet. Please page [phone] upon discharge. PROTIME Collected: 07/15/2018 Status: F Source: [place] 7:17 AM [facility] REPOSITORY TYPE CODE TESTS RESULT OUT OF RANGE REFERENCE UNITS LAB PSEC 9.7-13.0 sec High PT Sec 34.2 LAB INR 0.9-1.3 High PT INR 3.5 Result Comment: Vitamin K Antagonist (VKA) Therapeutic Range: INR 2 to 3 (Target INR of 2.5) Note: For patients treated with VKA drugs, such as warfarin, the [employer] 2012 Guideline recommends [...] Chest 2012, 141:7S-47S Diogenes RA, et al. [facility] 2017, 70: 252-289 Performed By: #### PT #### [facility] [address] [id number] PROGRESS Observed: 07/15/2018 Status: COMPLETED Source: [place] 6:42 AM [facility] REPOSITORY O ID: [id number] Author: Steve Crews Service: General Internal Medicine Author Type: Physician Type: Progress Notes Filed: 07/15/2018 12:16 PM Note Text: . VIPUL Terry INTERNAL MEDICINE PROGRESS NOTE Paloma Cannon [id number] SERVICE DATE: 07/15/18 SERVICE TIME: 6:43 AM Subjective INTERVAL: - MARILEE - INR 3.5 yesterday, received 2.5 mg warfarin. Will f/u INR today and plan to resume 5 mg - Very little pain while on Lyrica, hasn't used Dilaudid since 07/12. Spaced out to qd MEDICATIONS: Current Facility-Administered Medications: calcium gluconate 300 mg injection 300 mg INTRAVENOUS APHERESIS PRN Lisseth Claudio MD Or calcium carbonate 1,000 mg chewable tab(s) (TUMS) 1,000 mg ORAL APHERESIS PRN Lisseth Claudio MD HYDROmorphone 2 mg tab(s) (DILAUDID) 2 mg ORAL DAILY PRN Jorge (Res) Millicent torsemide 20 mg tab(s) (DEMADEX) 20 mg ORAL BID Jorge (Res) Millicent 20 mg at 07/14/182147 warfarin 5 mg tab(s) (COUMADIN) 5 mg ORAL/FEEDING TUBE DAILY - WARFARIN Jorge (Res) Millicent pregabalin 150 mg cap(s) (LYRICA) 150 mg ORAL TID Bolivar (Res) MD James 150 mg at 07/14/182147 diphenhydrAMINE 50 mg injection (BENADRYL) 50 mg INTRAVENOUS APHERESIS PRN Lisseth Claudio MD 50 mg at 07/09/18 1411 hydrocortisone sodium succinate (PF) 200 mg injection (Solu- CORTEF) 200 mg INTRAVENOUS APHERESIS PRN Lisseth Claudio MD 200 mg at 07/09/18 1350 sodium citrate 4% 3-6 mL catheter lock 3-6 mL INTRALUMINAL APHERESIS PRN Lisseth Claudio MD 3 mL at 07/09/18 1530 lidocaine 5 % 1 Patch (LIDODERM) 1 Patch TRANSDERMAL DAILY Bolivar (Res) MD James 1 Patch at 07/06/18 0940 And lidocaine patch - REMOVE OTHER AT BEDTIME Bolivar (Res) MD James And lidocaine - VERIFY PATCH OTHER q 8 H Bolivar (Res) MD James miconazole 2 % 1 application topical powder (LOTRIMIN AF, DESENEX) 1 application TOPICAL BID Nevaeh (Res) Sirena 1 application at 07/14/182152 pamidronate 30 mg in NaCl 0.9% 1,000 mL (AREDIA) 30 mg INTRAVENOUS q 1 WEEK Camila (Res) MD Odin Last Rate: 250 mL/hr at 07/13/18 1135 30 mg at 07/13/18 1135 acetaminophen 650 mg tab(s) (TYLENOL) 650 mg ORAL q 6 H PRN Gladys (Res) MD Flaco 650 mg at 07/14/182147 losartan 25 mg tab(s) (COZAAR) 25 mg ORAL DAILY Gladys (ResDevonte Sam MD 25 mg at 07/14/18 0832 DULoxetine (CYMBALTA) cap(s) 90 mg 90 mg ORAL DAILY Camila (Res) MD Odin 90 mg at 07/14/18 0832 meperidine (PF) 25 mg injection (DEMEROL) 25 mg INTRAVENOUS q 6 H PRN Gladys (Res) MD Flaco sodium citrate 4% 3-6 mL catheter lock 3-6 mL INTRALUMINAL APHERESIS PRN Zahra Matson Rodrigo 3 mL at 07/09/18 1535 sodium hypochlorite topical irrigation 0.25% (DAKINS HALF-STRENGTH) IRRIGATION DAILY Gladys (Res) MD Flaco NaCl 0.9% 10 mL 10 mL INTRAVENOUS q 12 H Sanchez SanchezRes) Natalie 10 mL at 07/14/18 2150 NaCl 0.9% 20 mL 20 mL INTRAVENOUS PRN Sanchez [place]) Natalie 20 mL at 07/12/18 1144 NaCl 0.9% 2-10 mL 2-10 mL INTRAVENOUS q 12 H Sanchez [place]) Natalie 5 mL at 07/13/18 2124 carvedilol 12.5 mg tab(s) (COREG) 12.5 mg ORAL BID w MEALS Sanchez [place]) Natalie 12.5 mg at 07/14/18 1709 cetirizine 10 mg tab(s) (ZyrTEC) 10 mg ORAL BID Sanchez (Res) Natalie 10 mg at 07/14/18 2148 NIFEdipine ER 60 mg tab(S) (PROCARDIA XL) 60 mg ORAL DAILY Sanchez [place]) Natalie 60 mg at 07/14/[address] 40 mg tab(s) (PROTONIX) 40 mg ORAL DAILY (6 AM) Sanchez Mg Natalie 40 mg at 07/15/18 0624 warfarin order for discharge OTHER PRN Sanchez [place]) Natalie sodium thiosulfate 25 g in D5W 250 mL 25 g INTRAVENOUS q 1800 Ellymed (Res) Abu-Haniyeh Last Rate: 250 mL/hr at 07/14/18 1709 25 g at 07/14/18 1709 ondansetron (PF) 4 mg injection (ZOFRAN) 4 mg INTRAVENOUS q 8 H PRN Ellymed (Res) Abu-Haniyeh 4 mg at 06/27/18 1758 hydrocortisone sodium succinate (PF) 100 mg injection (Solu- CORTEF) 100 mg INTRAVENOUS q 6 H PRN Ahmed (Res) Abu-Haniyeh diphenhydrAMINE 50 mg (BENADRYL) 50 mg ORAL q 6 H PRN Ahmed (Res) Abu-Haniyeh 50 mg at 07/09/18 1601 Objective PHYSICAL EXAM: BP 102/51 Pulse 76 Temp (Src) 98.6 (Oral) Resp 18 Ht 5' 3 (1.60m) Wt 253 lb 8.5 oz (115.0kg) SpO2 99% BMI 44.92 kg/(m2). General appearance: Well appearing, alert, in no acute distress, well-hydrated, well nourished. Skin: No fluctuance or erythema around the leg wound. Lungs: Lungs clear to auscultation. ?No wheezing, rhonchi, rales. Heart: RRR without murmur, gallop, or rubs. Abdomen: Normal abdominal exam, Abdomen soft, non-tender. Bowel sounds normal. Extremities: No deformities, edema, skin discoloration, clubbing or cyanosis. Good capillary refill. Peripheral pulses: Normal Lines, Drains, and Airways Line Central Line Single Lumen Tunneled Left Chest -- days Dialysis / Apheresis Double Lumen 03/17/18 1000 Admission to Hospital Tunneled Left Chest 119 days DATA: CBC: Recent Labs 07/14/18 0516 07/11/18 0508 WBC 3.22* 4.46 HB 8.5* 9.2* HCT 27.6* 29.7* PLT 113* 112* MCV 89.0 89.5 RDWCV 16.0* 16.0* COAG: Recent Labs 07/14/18 0516 07/12/18 0454 07/11/18 0508 07/10/18 0501 07/09/18 0504 INR 3.5* 2.7* 2.4* 2.1* 2.6* BMP: Recent Labs 07/14/18 0516 07/11/18 0508 GLUC 83 83 NA 142 143 K 4.2 3.7 CHLOR 105 100 CO2 26 29 ANION 11 14 BUN 17 19 CREAT 0.92 1.08* CHEM: Recent Labs 07/14/18 0516 07/11/18 0508 CA 9.1 8.7 IMAGING: XR CHEST 2V FRONTAL/LAT Final Result IMPRESSION: As above Glass Edger: PSCB Transcribe Date/Time: Jul 10 2018 2:36P Dictated by : BERNARDO LOPES MD This examination was interpreted and the report reviewed and electronically signed by: BERNARDO LOPES MD on Jul 10 2018 2:37PM EST US DVT UPPER LT Final Result IMPRESSION: NEGATIVE STUDY FOR ACUTE DVT IN THE LEFT UPPER EXTREMITY. NEGATIVE STUDY FOR SUPERFICIAL THROMBOPHLEBITIS IN THE LEFT UPPER EXTREMITY NONOCCLUSIVE THROMBUS ALONG THE WALL THE MEDIAL RIGHT SUBCLAVIAN VEIN, PARTIALLY VISUALIZED, WHICH APPEARS CHRONIC. COMMUNICATION: Communicated with: Bolivar Roque on 07/02/2018 at 16:50. Glass Edger: PSCB Transcribe Date/Time: Jul 02 2018 4:29P Dictated by : JANNETH CASTAÑEDA MD This examination was interpreted and the report reviewed and electronically signed by: JANNETH CASTAÑEDA MD on Jul 02 2018 4:50PM EST CT ABD/PEL WO IVCON Final Result IMPRESSION: CONTINUED INTERVAL DECREASE IN SIZE OF PREVIOUSLY PRESENT LEFT RETROPERITONEAL HEMATOMA. NO EVIDENCE OF NEW INTERVAL HEMORRHAGE. NO OTHER SIGNIFICANT INTERVAL CHANGE. Glass [facility]: [facility] Transcribe Date/Time: Jun 28 2018 8:51P Dictated by : GUILLAUME WORTHY MD This examination was interpreted and the report reviewed and electronically signed by: GUILLAUME WORTHY MD on Jun 28 2018 9:03PM EST Assessment/Plan hx of APS (on warfarin), DVT, calciphylaxis,??HFrEF,?CKD presenting with calciphylaxis related left leg pain. # Calciphylaxis -Known wound related to calciphylaxis (slightly worse) -Unable to get sodium thiosulfate as an outpatient -Worsening pain Plan -Sodium thiosulfate ?- 25g in 250ml D5W infused over 1 hour ?- Monitor Vital signs during infusion given (low) risk of hypotension ?- BMP once per week to check for anion gap metabolic acidosis ?PRN during infusion:?- Acetaminophen 650mg PRN as needed for headache (will premedicate with acetaminophen if headaches are frequent) ?- Diphenhydramine 50 mg IV PRN hypotension, shortness of breath or bronchospasm ?- Meperidine 25 mg Injection PRN for rigors ?- Stop infusion if either hypotension or rigors occur. Solu-cortef 100mg IV and normal saline as needed for hypotension ?- Ondansetron 8 mg IV PRN Nausea/Vomiting (will premedicate with ondansetron if nausea/vomiting frequent) -Pain management recs: weaning Dilaudid. Methadone d/c'd -Dermatology consulted, punch biopsy obtained - sutures will need to be removed -IV pamidronate 30 mg q Monday -Wound care per dermatology: washing with saline wound wash, packing with daikin soaked gauze, gauze and tape - PLEX 07/23/18 # Antiphospholipid antibody syndrome # Chronic pain -Continue home coumadin, daily INR (decrease to 2.5 today given supratherapeutic INR, resume 5mg tomorrow) ?-Typically takes 5 mg warfarin daily, except 7.5 mg on the day of PLEX and 1-2 days following - APAP 650mg PO 4x/day PRN - Cymbalta to 90mg PO qAM - Lyrica 150 mg TID - Weaning Dilaudid ? #HFrEF #HTN -Continue home Procardia, Coreg, Cozaar ? #Hx seasonal allergies #Hx of Hives -Continue home certirizine -Diphenhydramine prn ? #GERD -Continue home pantoprazole Bolivar Roque MD PGY-1 Neurology Pager [phone] 07/15/18 6:43 AM ATTENDING PHYSICIAN: Patient seen and evaluated today Fernandes elements of history and physical examination of the patient were confirmed. The assessment and plan were formulated and discussed with the team on Rounds. I reviewed the resident's note, examined the patient and agree with the documented findings and plan of care. Calciphylaxis, Antiphospholipid Syndrome Home when Na Thiosulfate arranged for out-patient infusion Patient very concerned about fluid overload, so cont on torsemide (home meds), checked CXR (clear) and weigh daily, fluid restriction 1400 ml. Cont on pain control - but difficult. May increase Lyrica. Cont on lower dose of coumadin for now. Monitor INR. Discussed Insurance coverage for STS - Dr. Linnette Colin Derm Staff and his team is following with insurance. I will touch base with them on Monday. Signed: Steve Crews MD Attending, Associate Staff Department of Hospital Medicine [facility] PROGRESS Observed: 07/14/2018 Status: COMPLETED Source: [place] 2:22 PM [facility] REPOSITORY HNO ID: [id number] Author: Steve Crews Service: General Internal Medicine Author Type: Physician Type: Progress Notes Filed: 07/14/2018 3:46 PM Note Text: . VIPUL Terry INTERNAL MEDICINE PROGRESS NOTE Paloma M Davis [id number] SERVICE DATE: 07/14/18 SERVICE TIME: 2:22 PM Subjective INTERVAL: - MARILEE - s/p pamidronate yesterday, tolerating well - Very little pain while on Lyrica, hasn't used Dilaudid since 07/12 MEDICATIONS: Current Facility-Administered Medications: calcium gluconate 300 mg injection 300 mg INTRAVENOUS APHERESIS PRN Lisseth Claudio MD Or calcium carbonate 1,000 mg chewable tab(s) (TUMS) 1,000 mg ORAL APHERESIS PRN Lisseth Claudio MD HYDROmorphone 2 mg tab(s) (DILAUDID) 2 mg ORAL DAILY PRN Jorge Ricks torsemide 20 mg tab(s) (DEMADEX) 20 mg ORAL BID Jorge Ricks 20 mg at 07/14/18 0835 warfarin 2.5 mg tab(s) (COUMADIN) 2.5 mg ORAL/FEEDING TUBE ONCE - WARFARIN Jorge (Frida Ricks [START ON 07/15/2018] warfarin 5 mg tab(s) (COUMADIN) 5 mg ORAL/FEEDING TUBE DAILY - WARFARIN Jorge (Frida Ricks pregabalin 150 mg cap(s) (LYRICA) 150 mg ORAL TID Bolivar Roque MD 150 mg at 07/14/18 1243 diphenhydrAMINE 50 mg injection (BENADRYL) 50 mg INTRAVENOUS APHERESIS PRN Lisseth Claudio MD 50 mg at 07/09/18 1411 hydrocortisone sodium succinate (PF) 200 mg injection (Solu- CORTEF) 200 mg INTRAVENOUS APHERESIS PRN Lisseth Claudio MD 200 mg at 07/09/18 1350 sodium citrate 4% 3-6 mL catheter lock 3-6 mL INTRALUMINAL APHERESIS PRN Lisseth Claudio MD 3 mL at 07/09/18 1530 lidocaine 5 % 1 Patch (LIDODERM) 1 Patch TRANSDERMAL DAILY Bolivar (Res) MD James 1 Patch at 07/06/18 0940 And lidocaine patch - REMOVE OTHER AT BEDTIME Bolivar SanchezRes) MD James And lidocaine - VERIFY PATCH OTHER q 8 H Bolivar (Res) MD James miconazole 2 % 1 application topical powder (LOTRIMIN AF, DESENEX) 1 application TOPICAL BID Nevaeh (Res) Sirena 1 application at 07/14/18 0834 pamidronate 30 mg in NaCl 0.9% 1,000 mL (AREDIA) 30 mg INTRAVENOUS q 1 WEEK Camila (Res) MD Odin Last Rate: 250 mL/hr at 07/13/18 1135 30 mg at 07/13/18 1135 acetaminophen 650 mg tab(s) (TYLENOL) 650 mg ORAL q 6 H PRN Gladys (Res) MD Flaco 650 mg at 07/14/18 0507 losartan 25 mg tab(s) (COZAAR) 25 mg ORAL DAILY Gladys (Res) MD Flaco 25 mg at 07/14/18 0832 DULoxetine (CYMBALTA) cap(s) 90 mg 90 mg ORAL DAILY Camila (ResDevonte Newby MD 90 mg at 07/14/18 0832 meperidine (PF) 25 mg injection (DEMEROL) 25 mg INTRAVENOUS q 6 H PRN Gladys (Res) MD Flaco sodium citrate 4% 3-6 mL catheter lock 3-6 mL INTRALUMINAL APHERESIS PRN Zahra P Rodrigo 3 mL at 07/09/18 1535 sodium hypochlorite topical irrigation 0.25% (DAKINS HALF-STRENGTH) IRRIGATION DAILY Gladys (ResDevonte Sam MD NaCl 0.9% 10 mL 10 mL INTRAVENOUS q 12 H Sanchez SanchezRes) Natalie 10 mL at 07/14/18 0833 NaCl 0.9% 20 mL 20 mL INTRAVENOUS PRN Sanchez SanchezRes) Natalie 20 mL at 07/12/18 1144 NaCl 0.9% 2-10 mL 2-10 mL INTRAVENOUS q 12 H Sanchez (Res) Natalie 5 mL at 07/13/18 2124 carvedilol 12.5 mg tab(s) (COREG) 12.5 mg ORAL BID w MEALS Sanchez (Res) Natalie 12.5 mg at 07/14/18 0832 cetirizine 10 mg tab(s) (ZyrTEC) 10 mg ORAL BID Sanchez (Res) Natalie 10 mg at 07/14/18 0832 NIFEdipine ER 60 mg tab(S) (PROCARDIA XL) 60 mg ORAL DAILY Sanchez (Res) Natalie 60 mg at 07/14/[address] 40 mg tab(s) (PROTONIX) 40 mg ORAL DAILY (6 AM) Sanchez (Res) Natalie 40 mg at 07/14/18 0507 warfarin order for discharge OTHER PRN Sanchez (Res) Natalie sodium thiosulfate 25 g in D5W 250 mL 25 g INTRAVENOUS q 1800 Ahmed (Res) Abu-Haniyeh Last Rate: 250 mL/hr at 07/12/18 1716 25 g at 07/12/18 1716 ondansetron (PF) 4 mg injection (ZOFRAN) 4 mg INTRAVENOUS q 8 H PRN Ahmed (Res) Abu-Haniyeh 4 mg at 06/27/18 1758 hydrocortisone sodium succinate (PF) 100 mg injection (Solu- CORTEF) 100 mg INTRAVENOUS q 6 H PRN Ahmed (Res) Abu-Haniyeh diphenhydrAMINE 50 mg (BENADRYL) 50 mg ORAL q 6 H PRN Ahmed (Res) Abu-Haniyeh 50 mg at 07/09/18 1601 Objective PHYSICAL EXAM: BP 122/63 Pulse 84 Temp (Src) 98.2 (Oral) Resp 16 Ht 5' 3 (1.60m) Wt 253 lb 8.5 oz (115.0kg) SpO2 99% BMI 44.92 kg/(m2). General appearance: Well appearing, alert, in no acute distress, well-hydrated, well nourished. Skin: No fluctuance or erythema around the leg wound. Lungs: Lungs clear to auscultation. ?No wheezing, rhonchi, rales. Heart: RRR without murmur, gallop, or rubs. Abdomen: Normal abdominal exam, Abdomen soft, non-tender. Bowel sounds normal. Extremities: No deformities, edema, skin discoloration, clubbing or cyanosis. Good capillary refill. Peripheral pulses: Normal Lines, Drains, and Airways Line Central Line Single Lumen Tunneled Left Chest -- days Dialysis / Apheresis Double Lumen 03/17/18 1000 Admission to Hospital Tunneled Left Chest 119 days DATA: CBC: Recent Labs 07/14/18 0516 07/11/18 0508 07/08/18 0501 WBC 3.22* 4.46 3.90 HB 8.5* 9.2* 8.8* HCT 27.6* 29.7* 28.4* PLT 113* 112* 114* MCV 89.0 89.5 91.0 RDWCV 16.0* 16.0* 15.6* COAG: Recent Labs 07/14/18 0516 07/12/18 0454 07/11/18 0508 07/10/18 0501 07/09/18 0504 07/08/18 0501 INR 3.5* 2.7* 2.4* 2.1* 2.6* 2.4* BMP: Recent Labs 07/14/18 0516 07/11/18 0508 07/08/18 0501 GLUC 83 83 98 NA 142 143 139 K 4.2 3.7 3.9 CHLOR 105 100 105 CO2 26 29 22 ANION 11 14 12 BUN 17 19 14 CREAT 0.92 1.08* 0.79 CHEM: Recent Labs 07/14/18 0516 07/11/18 0508 07/08/18 0501 CA 9.1 8.7 8.2* IMAGING: XR CHEST 2V FRONTAL/LAT Final Result IMPRESSION: As above Glass Edger: PSCB Transcribe Date/Time: Jul 10 2018 2:36P Dictated by : BERNARDO LOPES MD This examination was interpreted and the report reviewed and electronically signed by: BERNARDO LOPES MD on Jul 10 2018 2:37PM EST US DVT UPPER LT Final Result IMPRESSION: NEGATIVE STUDY FOR ACUTE DVT IN THE LEFT UPPER EXTREMITY. NEGATIVE STUDY FOR SUPERFICIAL THROMBOPHLEBITIS IN THE LEFT UPPER EXTREMITY NONOCCLUSIVE THROMBUS ALONG THE WALL THE MEDIAL RIGHT SUBCLAVIAN VEIN, PARTIALLY VISUALIZED, WHICH APPEARS CHRONIC. COMMUNICATION: Communicated with: Bolivar Roque on 07/02/2018 at 16:50. Glass Edger: PSCB Transcribe Date/Time: Jul 02 2018 4:29P Dictated by : JANNETH CASTAÑEDA MD This examination was interpreted and the report reviewed and electronically signed by: JANNETH CASTAÑEDA MD on Jul 02 2018 4:50PM EST CT ABD/PEL WO IVCON Final Result IMPRESSION: CONTINUED INTERVAL DECREASE IN SIZE OF PREVIOUSLY PRESENT LEFT RETROPERITONEAL HEMATOMA. NO EVIDENCE OF NEW INTERVAL HEMORRHAGE. NO OTHER SIGNIFICANT INTERVAL CHANGE. Glass Edger: MURTAZA Transcribe Date/Time: Jun 28 2018 8:51P Dictated by : GUILLAUME WORTHY MD This examination was interpreted and the report reviewed and electronically signed by: GUILLAUME WORTHY MD on Jun 28 2018 9:03PM EST Assessment/Plan hx of APS (on warfarin), DVT, calciphylaxis,??HFrEF,?CKD presenting with calciphylaxis related left leg pain. # Calciphylaxis -Known wound related to calciphylaxis (slightly worse) -Unable to get sodium thiosulfate as an outpatient -Worsening pain Plan -Sodium thiosulfate ?- 25g in 250ml D5W infused over 1 hour ?- Monitor Vital signs during infusion given (low) risk of hypotension ?- BMP once per week to check for anion gap metabolic acidosis ?PRN during infusion:?- Acetaminophen 650mg PRN as needed for headache (will premedicate with acetaminophen if headaches are frequent) ?- Diphenhydramine 50 mg IV PRN hypotension, shortness of breath or bronchospasm ?- Meperidine 25 mg Injection PRN for rigors ?- Stop infusion if either hypotension or rigors occur. Solu-cortef 100mg IV and normal saline as needed for hypotension ?- Ondansetron 8 mg IV PRN Nausea/Vomiting (will premedicate with ondansetron if nausea/vomiting frequent) -Pain management recs: weaning Dilaudid. Methadone d/c'd -Dermatology consulted, punch biopsy obtained - sutures will need to be removed -IV pamidronate 30 mg q Monday -Wound care per dermatology: washing with saline wound wash, packing with daikin soaked gauze, gauze and tape - PLEX 07/23/18 # Antiphospholipid antibody syndrome # Chronic pain -Continue home coumadin, daily INR (decrease to 2.5 today given supratherapeutic INR, resume 5mg tomorrow) ?-Typically takes 5 mg warfarin daily, except 7.5 mg on the day of PLEX and 1-2 days following - APAP 650mg PO 4x/day PRN - Cymbalta to 90mg PO qAM - Lyrica 150 mg TID - Weaning Dilaudid ? #HFrEF #HTN -Continue home Procardia, Coreg, Cozaar ? #Hx seasonal allergies #Hx of Hives -Continue home certirizine -Diphenhydramine prn ? #GERD -Continue home pantoprazole Jorge Ricks MD PGY-2, Internal Medicine [id number] 07/14/2018 2:24 PM ATTENDING PHYSICIAN: Patient seen and evaluated today Fernandes elements of history and physical examination of the patient were confirmed. The assessment and plan were formulated and discussed with the team on Rounds. I reviewed the resident's note, examined the patient and agree with the documented findings and plan of care. Calciphylaxis, Antiphospholipid Syndrome Home when Na Thiosulfate arranged for out-patient infusion Patient very concerned about fluid overload, so cont on torsemide (home meds), checked CXR (clear) and weigh daily, fluid restriction 1400 ml. Cont on pain control - but difficult. May increase Lyrica. Discussed Insurance coverage for STS - Dr. Linnette Colin Derm Staff and his team is following with insurance. I will touch base with them on Monday. Signed: Steve Crews MD Attending, Associate Staff Department of Hospital Medicine [facility] CBC Collected: 07/14/2018 Status: F Source: [place] 5:16 AM [facility] REPOSITORY TYPE CODE TESTS RESULT OUT OF REFERENCE UNITS RANGE LAB WBC 3.70-11.00 k/uL Low WBC 3.22 LAB RBC 3.90-5.20 m/uL Low RBC 3.10 LAB HGB 11.5-15.5 g/dL Low Hemoglobin 8.5 LAB HCT 36.0-46.0 % Low Hematocrit 27.6 LAB MCV 80.0-100.0 fL MCV 89.0 LAB MCH 26.0-34.0 pG MCH 27.4 LAB MCHC 30.5-36.0 g/dL MCHC 30.8 LAB RDWCV 11.5-15.0 % RDW-CV High 16.0 LAB PLTCT 150-400 k/uL Low Platelet Count 113 LAB MPV 9.0-12.7 fL MPV 10.7 LAB ABSNUC <0.01 k/uL Absolute nRBC <0.01 Performed By: #### CBC, PT, BMP #### [facility] [address] [place], [place] [address] PROTIME Collected: 07/14/2018 Status: F Source: [place] 5:16 AM [facility] REPOSITORY TYPE CODE TESTS RESULT OUT OF RANGE REFERENCE UNITS LAB PSEC 9.7-13.0 sec High PT Sec 33.9 LAB INR 0.9-1.3 High PT INR 3.5 Result Comment: Vitamin K Antagonist (VKA) Therapeutic Range: INR 2 to 3 (Target INR of 2.5) Note: For patients treated with VKA drugs, such as warfarin, the [place] [employer] 2012 Guideline recommends [...] Chest 2012, 141:7S-47S Diogenes RESENDIZ et al. [facility] 2017, 70: 252-289 Performed By: #### CBC, PT, BMP #### [facility] [address] [place], [place] [address] BASIC METABOLIC PANL Collected: 07/14/2018 Status: F Source: [place] 5:16 AM [facility] REPOSITORY TYPE CODE TESTS RESULT OUT OF REFERENCE UNITS RANGE LAB GLU 74-99 mg/dL Glucose 83 Result Comment: The [place] [employer] (ADA) provides guidance for cutoff [...] Standards of Medical Care in Diabetes 2016, [place] [employer]. Diabetes Care. 2016.39(Suppl 1). LAB BUN 7-21 mg/dL BUN 17 LAB CRET 0.58-0.96 mg/dL Creatinine 0.92 LAB NA 136-144 mmol/L Sodium 142 LAB K 3.7-5.1 mmol/L Potassium 4.2 LAB CL 97-105 mmol/L Chloride 105 LAB CO2 22-30 mmol/L CO2 26 LAB AGAP 9-18 mmol/L Anion Gap 11 LAB CA 8.5-10.2 mg/dL Calcium, Total 9.1 LAB GFRAA eGFR- Amer. >60 LAB GFRNAA [...] actual GFR. Performed By: #### CBC, PT, BMP #### [facility] [address], [place] [id number] CASE MANAGEM Observed: 07/13/2018 Status: COMPLETED Source: [place] 11:03 AM [facility] [place] REPOSITORY HNO ID: [id number] Author: Jacinta SanchezRn) JEFF Olmedo Service: Care Management Author Type: Registered Nurse Type: Care Mgt Progress Note Filed: 07/13/2018 11:04 AM Note Text: CARE MANAGEMENT PROGRESS NOTE SERVICE DATE: 07/13/2018 SERVICE TIME: 11:04 AM LOS: 20 days Needs Prior to Discharge: Insurance Authorization (scheduling to infusion center) Dc date TBD. Current on 2LO2/nc. Has Home O2 2l/NC form [employer]. May need assist w car t/p home if discharged on Thurs/Sat or Sun. Awaiting approval of pamidronate in addition to na thiosulfate ( denied coverage) by insurance, and scheduling at [facility] OP infusion center rather than [facility] at pt request.Dermatology arranging. PT recs OP PT.CM to continue to follow SIGNATURE: Jacinta Olmedo RN PATIENT NAME: Paloma Cannon DATE: July 13, 2018 TIME: 11:03 AM PAGER/CONTACT #: [phone] ALLIED HEALTH Observed: 07/13/2018 Status: COMPLETED Source: [place] 10:48 AM [facility] REPOSITORY HNO ID: [id number] Author: Ok (Therapist) Abundio Service: Music Therapy Author Type: Music Therapist Type: Allied Health Filed: 07/13/2018 10:49 AM Note Text: MUSIC THERAPY NOTE SERVICE DATE: 07/13/2018 SERVICE TIME: 1040 Attempted music therapy session: therapist introduced services and briefly discussed hospitalization with pt. Pt declined services at this time but open to follow-up. Will follow as able. SIGNATURE: Parrish Funk PATIENT NAME: Paloma Quisper DATE: July 13, 2018 TIME: 10:48 AM PAGER/CONTACT #: [phone] PROGRESS Observed: 07/13/2018 Status: COMPLETED Source: [place] 6:26 AM [facility] REPOSITORY HNO ID: [id number] Author: Steve Crews Service: General Internal Medicine Author Type: Physician Type: Progress Notes Filed: 07/14/2018 1:15 AM Note Text: . VIPUL Terry INTERNAL MEDICINE PROGRESS NOTE Paloma Cannon [id number] SERVICE DATE: 07/13/18 SERVICE TIME: 6:26 AM Subjective INTERVAL HPI: - MARILEE - PLEX - next 07/23/18 - Pamidronate - Next today - Continuing warfarin 5 mg qd with q48h PT/INR - Sutures removed yesterday - Needs desat study prior to d/c MEDICATIONS: Current Facility-Administered Medications: warfarin 5 mg tab(s) (COUMADIN) 5 mg ORAL/FEEDING TUBE DAILY - WARFARIN Bolivar Roque MD 5 mg at 07/12/18 1706 pregabalin 150 mg cap(s) (LYRICA) 150 mg ORAL TID Bolivar Roque MD 150 mg at 07/12/182016 diphenhydrAMINE 50 mg injection (BENADRYL) 50 mg INTRAVENOUS APHERESIS PRN Lisseth Claudio MD 50 mg at 07/09/18 1411 hydrocortisone sodium succinate (PF) 200 mg injection (Solu- CORTEF) 200 mg INTRAVENOUS APHERESIS PRN Lisseth Claudio MD 200 mg at 07/09/18 1350 sodium citrate 4% 3-6 mL catheter lock 3-6 mL INTRALUMINAL APHERESIS PRN Lissteh Claudio MD 3 mL at 07/09/18 1530 HYDROmorphone 2 mg tab(s) (DILAUDID) 2 mg ORAL q 12 H PRN Jorge Mg Millicent 2 mg at 07/11/18 1304 lidocaine 5 % 1 Patch (LIDODERM) 1 Patch TRANSDERMAL DAILY Bolivar Roque MD 1 Patch at 07/06/18 0940 And lidocaine patch - REMOVE OTHER AT BEDTIME Bolivar Roque MD And lidocaine - VERIFY PATCH OTHER q 8 H Bolivar [place]) MD James miconazole 2 % 1 application topical powder (LOTRIMIN AF, DESENEX) 1 application TOPICAL BID Nevaeh (Frida Pack 1 application at 07/12/182015 pamidronate 30 mg in NaCl 0.9% 1,000 mL (AREDIA) 30 mg INTRAVENOUS q 1 WEEK Camila (Frida Newby MD Last Rate: 250 mL/hr at 07/06/18 1231 30 mg at 07/06/18 1231 acetaminophen 650 mg tab(s) (TYLENOL) 650 mg ORAL q 6 H PRN Gladys (ResDevonte Sam MD 650 mg at 07/12/18 1708 losartan 25 mg tab(s) (COZAAR) 25 mg ORAL DAILY Gladys (Frida Sam MD 25 mg at 07/12/18 0825 DULoxetine (CYMBALTA) cap(s) 90 mg 90 mg ORAL DAILY Camila (Res) MD Odin 90 mg at 07/12/18 0825 meperidine (PF) 25 mg injection (DEMEROL) 25 mg INTRAVENOUS q 6 H PRN Gladys Sam MD sodium citrate 4% 3-6 mL catheter lock 3-6 mL INTRALUMINAL APHERESIS PRN Zahra P Rodrigo 3 mL at 07/09/18 1535 sodium hypochlorite topical irrigation 0.25% (DAKINS HALF-STRENGTH) IRRIGATION DAILY Gladys (Frida Sam MD NaCl 0.9% 10 mL 10 mL INTRAVENOUS q 12 H Sanchez Mg Natalie 10 mL at 07/12/18 2018 NaCl 0.9% 20 mL 20 mL INTRAVENOUS PRN Sanchez Mg Natalie 20 mL at 07/12/18 1144 NaCl 0.9% 2-10 mL 2-10 mL INTRAVENOUS q 12 H Sanchez Mg Natalie 10 mL at 07/11/18 0945 carvedilol 12.5 mg tab(s) (COREG) 12.5 mg ORAL BID w MEALS Sanchez Mg Natalie 12.5 mg at 07/12/18 170 cetirizine 10 mg tab(s) (ZyrTEC) 10 mg ORAL BID Sanchez Mg Natalie 10 mg at 07/12/18 2017 NIFEdipine ER 60 mg tab(S) (PROCARDIA XL) 60 mg ORAL DAILY Sanchez London) Natalie 60 mg at 07/12/[address] 40 mg tab(s) (PROTONIX) 40 mg ORAL DAILY (6 AM) Sanchez Mg Natalie 40 mg at 07/13/18 0610 warfarin order for discharge OTHER PRN Sanchez London) Natalie sodium thiosulfate 25 g in D5W 250 mL 25 g INTRAVENOUS q 1799 Hilaria (Res) Karlos Last Rate: 250 mL/hr at 07/12/18 1716 25 g at 07/12/18 1716 ondansetron (PF) 4 mg injection (ZOFRAN) 4 mg INTRAVENOUS q 8 H PRN Ahmed (Res) Abu-Haniyeh 4 mg at 06/27/18 1758 hydrocortisone sodium succinate (PF) 100 mg injection (Solu- CORTEF) 100 mg INTRAVENOUS q 6 H PRN Ahmed (Res) Abu-Haniyeh diphenhydrAMINE 50 mg (BENADRYL) 50 mg ORAL q 6 H PRN Ahmed (Res) Abu-Haniyeh 50 mg at 07/09/18 1601 Objective PHYSICAL EXAM: BP 121/68 Pulse 80 Temp (Src) 98.7 (Oral) Resp 16 Ht 5' 3 (1.60m) Wt 250 lb 14.1 oz (113.8kg) SpO2 97% BMI 44.45 kg/(m2). General appearance: Well appearing, alert, in no acute distress, well-hydrated, well nourished. Skin: No fluctuance or erythema around the leg wound. Lungs: Lungs clear to auscultation. ?No wheezing, rhonchi, rales. Heart: RRR without murmur, gallop, or rubs. Abdomen: Normal abdominal exam, Abdomen soft, non-tender. Bowel sounds normal. Extremities: No deformities, edema, skin discoloration, clubbing or cyanosis. Good capillary refill. Peripheral pulses: Normal Lines, Drains, and Airways Line Central Line Single Lumen Tunneled Left Chest -- days Dialysis / Apheresis Double Lumen 03/17/18 1000 Admission to Hospital Tunneled Left Chest 117 days DATA: CBC: Recent Labs 07/11/18 0508 07/08/18 0501 WBC 4.46 3.90 HB 9.2* 8.8* HCT 29.7* 28.4* PLT 112* 114* MCV 89.5 91.0 RDWCV 16.0* 15.6* COAG: Recent Labs 07/12/18 0454 07/11/18 0508 07/10/18 0501 07/09/18 0504 07/08/18 0501 07/07/18 0418 INR 2.7* 2.4* 2.1* 2.6* 2.4* 2.3* BMP: Recent Labs 07/11/18 0508 07/08/18 0501 GLUC 83 98 NA 143 139 K 3.7 3.9 CHLOR 100 105 CO2 29 22 ANION 14 12 BUN 19 14 CREAT 1.08* 0.79 CHEM: Recent Labs 07/11/18 0508 07/08/18 0501 CA 8.7 8.2* IMAGING: XR CHEST 2V FRONTAL/LAT Final Result IMPRESSION: As above Glass Edger: MURTAZA Transcribe Date/Time: Jul 10 2018 2:36P Dictated by : BERNARDO LOPES MD This examination was interpreted and the report reviewed and electronically signed by: BERNARDO LOPES MD on Jul 10 2018 2:37PM EST US DVT UPPER LT Final Result IMPRESSION: NEGATIVE STUDY FOR ACUTE DVT IN THE LEFT UPPER EXTREMITY. NEGATIVE STUDY FOR SUPERFICIAL THROMBOPHLEBITIS IN THE LEFT UPPER EXTREMITY NONOCCLUSIVE THROMBUS ALONG THE WALL THE MEDIAL RIGHT SUBCLAVIAN VEIN, PARTIALLY VISUALIZED, WHICH APPEARS CHRONIC. COMMUNICATION: Communicated with: Bolivar Roque on 07/02/2018 at 16:50. Glass Edger: [facility] Transcribe Date/Time: Jul 02 2018 4:29P Dictated by : JANNETH CASTAÑEDA MD This examination was interpreted and the report reviewed and electronically signed by: JANNETH CASTAÑEDA MD on Jul 02 2018 4:50PM EST CT ABD/PEL WO IVCON Final Result IMPRESSION: CONTINUED INTERVAL DECREASE IN SIZE OF PREVIOUSLY PRESENT LEFT RETROPERITONEAL HEMATOMA. NO EVIDENCE OF NEW INTERVAL HEMORRHAGE. NO OTHER SIGNIFICANT INTERVAL CHANGE. 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 # Calciphylaxis -Known wound related to calciphylaxis (slightly worse) -Unable to get sodium thiosulfate as an outpatient -Worsening pain Plan -Sodium thiosulfate ?- 25g in 250ml D5W infused over 1 hour ?- Monitor Vital signs during infusion given (low) risk of hypotension ?- BMP once per week to check for anion gap metabolic acidosis ?PRN during infusion:?- Acetaminophen 650mg PRN as needed for headache (will premedicate with acetaminophen if headaches are frequent) ?- Diphenhydramine 50 mg IV PRN hypotension, shortness of breath or bronchospasm ?- Meperidine 25 mg Injection PRN for rigors ?- Stop infusion if either hypotension or rigors occur. Solu-cortef 100mg IV and normal saline as needed for hypotension ?- Ondansetron 8 mg IV PRN Nausea/Vomiting (will premedicate with ondansetron if nausea/vomiting frequent) -Pain management recs: weaning Dilaudid. Methadone d/c'd -Dermatology consulted, punch biopsy obtained - sutures will need to be removed -IV pamidronate 30 mg q Monday -Wound care per dermatology: washing with saline wound wash, packing with daikin soaked gauze, gauze and tape - PLEX 07/23/18 # Antiphospholipid antibody syndrome # Chronic pain -Continue home coumadin, daily INR ?-Typically takes 5 mg warfarin daily, except 7.5 mg on the day of PLEX and 1-2 days following - APAP 650mg PO 4x/day PRN - Cymbalta to 90mg PO qAM - Lyrica 150 mg TID - Weaning pain Rx ? #HFrEF #HTN -Continue home Procardia, Coreg, Cozaar ? #Hx seasonal allergies #Hx of Hives -Continue home certirizine -Diphenhydramine prn ? #GERD -Continue home pantoprazole Bolivar Roque MD PGY-1 Neurology 07/13/18 6:26 AM ATTENDING PHYSICIAN: Patient seen and evaluated today Fernandes elements of history and physical examination of the patient were confirmed. The assessment and plan were formulated and discussed with the team on Rounds. I reviewed the resident's note, examined the patient and agree with the documented findings and plan of care. Calciphylaxis, Antiphospholipid Syndrome Home when Na Thiosulfate arranged for out-patient infusion Patient very concerned about fluid overload, so cont on torsemide (home meds), checked CXR (clear) and weigh daily, fluid restriction 1400 ml. Cont on pain control - but difficult. May increase Lyrica. Discussed Insurance coverage for STS - Dr. Linnette Colin Derm Staff and his team is following with insurance. I will touch base with them on Monday. Signed: Steve Crews MD Attending, Associate Staff Department of Hospital Medicine [facility] NURSING PROG Observed: 07/12/2018 Status: COMPLETED Source: [place] 9:28 PM [facility] REPOSITORY HNO ID: [id number] Author: Eduardo (Rn) JEFF Yates Service: Nursing Author Type: Registered Nurse Type: Nursing Progress Note Filed: 07/12/2018 9:28 PM Note Text: Nursing Progress Note Patient Name: Paloma Cannon Patient Location: [place] [address] [id number] Daily Note: Tylenol given for pain with some relief. Patient sleeping for most of the day. No acute issues. This note was completed by: Eduardo Yates RN NUTRITION Observed: 07/12/2018 Status: COMPLETED Source: [place] 3:19 PM [facility] REPOSITORY HNO ID: [id number] Author: Janel Hollingsworth (Diet-T) Basic Service: Nutrition Therapy Author Type: Protective Signal Installer Helper Type: Nutrition Filed: 07/12/2018 3:20 PM Note Text: NUTRITION THERAPY FOLLOW-UP NOTE SERVICE DATE: 07/12/2018 SERVICE TIME: 0945 and 1500 Anthropometrics: Height: 160 cm (5' 3) Current Weight: Weight: 111.7 kg (246 lb 4.1 oz) Body mass index is 43.62 kg/m?. Loss of lean body mass/visual muscle wasting: no Admitting Diagnosis: Calciphylaxis of left lower extremity with nonhealing ulcer with fat layer exposed (HCC) [E83.59, L97.922] Present Diet Order: Regular, 1400 mL fluid restriction Is the patient having any pain that is interfering with oral/enteral intake? Unable to assess Allergies: ALLERGIES Allergen Reactions - Rhubarb Rash, [...] Current intake of meals: 50 - 100% per EPIC I/Os Patient sleeping at time of visits. Ordered more meal vouchers for dinner (to last 6 days) Nursing Admission Assessment Malnutrition Score Tool: 1 Plan of Care: Recommendation Continue to monitor weekly Request more vouchers from patient food mixer Discharge Plan: Home on Regular, 1400 mL fluid restriction MNT Billing Type: Routine Care/15 min 1 unit SIGNATURE: Janel Lau DTR PATIENT NAME: Paloma Cannon DATE: July 12, 2018 TIME: 3:19 PM PAGER: [phone] CONSULT PROG Observed: 07/12/2018 Status: COMPLETED Source: [place] 2:42 PM [facility] [place] REPOSITORY HNO ID: [id number] Author: Ros Amezquita Service: Dermatology Author Type: Resident Type: Consult Progress Note Filed: 07/12/2018 2:53 PM Note Text: DERMATOLOGY HOSPITAL CONSULT SERVICE PROGRESS NOTE Interval Events - No acute events overnight - Pain well controlled today. Patient reports that the pain is gradually improving PHYSICAL EXAM BP 111/64 Pulse 81 Temp 37.2 ?C (98.9 ?F) (Oral) Resp 18 Ht 160 cm (5' 3) Wt 111.7 kg (246 lb 4.1 oz) SpO2 100% BMI 43.62 kg/m? Skin type: I GEN: awake, no acute distress Skin examination of the BLE including feet and was pertinent for: - Left lower leg with well demarcated ulceration with surrounding induration. No purulent discharge. Suture in place from recent biopsy. LABORATORY TESTS: CBC: Recent Labs 07/11/18 0508 07/08/18 0501 WBC 4.46 3.90 HB 9.2* 8.8* HCT 29.7* 28.4* PLT 112* 114* MCV 89.5 91.0 RDWCV 16.0* 15.6* COAG: Recent Labs 07/12/18 0454 07/11/18 0508 07/10/18 0501 07/09/18 0504 07/08/18 0501 07/07/18 0418 07/06/18 0537 INR 2.7* 2.4* 2.1* 2.6* 2.4* 2.3* 2.2* BMP: Recent Labs 07/11/18 0508 07/08/18 0501 GLUC 83 98 NA 143 139 K 3.7 3.9 CHLOR 100 105 CO2 29 22 ANION 14 12 BUN 19 14 CREAT 1.08* 0.79 CHEM: Recent Labs 07/11/18 0508 07/08/18 0501 CA 8.7 8.2* FINAL DIAGNOSIS A. Skin, left leg, punch biopsy - Calciphylaxis (see comment). MP/CE/rw 06/27/2018 COMMENT Histologic sections demonstrate an effaced epidermis. The underlying dermis is fibrotic with vertically oriented blood vessels consistent with scar. Within the subcutis, there is extensive calcium deposition within the fat lobules and in the valente of small vessels within the subcutis. Additionally, there is stippled extracellular calcium. These histologic features are compatible with the clinical impression of calciphylaxis. A/P: Ms Cannon is a 28 year old female with a PMHx of antiphyospholipid syndrome on coumadin AND plasmapheresis, PAD, DVT, ?HFrEF,?CKD, calciphylaxis (diagnosed in February 2018 after being admitted for antiphospholipid syndrome). Patient has been unable to obtain outpatient coverage for STS despite appeal made by dermatology and is now admitted for worsening pain from LLE ulceration. Currently on IV sodium thiosulfate 25 g , , Mon. Pamidronate started on 06/28/18- stopped due to ?allergic reaction (tingling in toes, no respiratory distress). Tolerated well on 06/29/18 with pre-medication with benadryl AND steroids. Disease likely aggravated by the fact that patient is still on warfarin. ? Plan - Continue STS 25 g three times weekly - Continue IV pamidronate 30 mg weekly - Insurance denial letter reviewed- STS was denied as requested drug is produced by a nonparticipating traffic sign supervisor. - Patient states she talked to her insurance company and pamidronate will reportedly be covered. She is wondering if she can get infusions at [facility] oncology center in [place] vs [facility]. [facility] infusion center has agreed to do the infusions for her; however, we are still waiting on insurance approval for the Pamidronate and possibly, but less likely STS - Local oncologist found to oversee patient's infusions; still awaiting coverage for pamidronate -Sutures need to be removed Ismael Amezquita MD Dermatology Resident July 12, 2018 CASE MANAGEM Observed: 07/12/2018 Status: COMPLETED Source: [place] 8:38 AM [facility] REPOSITORY HNO ID: [id number] Author: Jacinta Aguilar (Rn) JEFF Olmedo Service: Care Management Author Type: Registered Nurse Type: Care Mgt Progress Note Filed: 07/12/2018 8:39 AM Note Text: CARE MANAGEMENT PROGRESS NOTE SERVICE DATE: 07/12/2018 SERVICE TIME: 8:38 AM LOS: 19 days Needs Prior to Discharge: Insurance Authorization (scheduling to infusion center) Dc date TBD. Per Attending MD, Awaiting approval of pamidronate in addition to na thiosulfate ( previously denied coverage by insurance), and scheduling at [facility] OP infusion center rather than [place] at pt request. .Dermatology arranging. PT recs OP PT.CM to continue to follow SIGNATURE: Jacinta Olmedo RN PATIENT NAME: Paloma Cannon DATE: July 12, 2018 TIME: 8:38 AM PAGER/CONTACT #: [phone] PROGRESS Observed: 07/12/2018 Status: COMPLETED Source: [place] 6:24 AM [facility] REPOSITORY HNO ID: [id number] Author: Steve Crews Service: General Internal Medicine Author Type: Physician Type: Progress Notes Filed: 07/13/2018 12:17 AM Note Text: . VIPUL Terry INTERNAL MEDICINE PROGRESS NOTE Paloma Cannon [id number] SERVICE DATE: 07/12/18 SERVICE TIME: 6:24 AM Subjective INTERVAL HPI: - MARILEE - PLEX - next 07/23/18 - Pamidronate - Next 07/13/18 - Continuing warfarin 5 mg qd with daily PT/INR - Needs sutures removed from leg wound - Needs desat study prior to d/c MEDICATIONS: Current Facility-Administered Medications: acetaminophen 650 mg tab(s) (TYLENOL) 650 mg ORAL q 6 H PRN Gladys (Res) MD Flaco 650 mg at 07/11/18 1732 carvedilol 12.5 mg tab(s) (COREG) 12.5 mg ORAL BID w MEALS Sanchez (Res) Natalie 12.5 mg at 07/11/18 173 cetirizine 10 mg tab(s) (ZyrTEC) 10 mg ORAL BID Sanchez (Res) Natalie 10 mg at 07/11/18 2041 diphenhydrAMINE 50 mg (BENADRYL) 50 mg ORAL q 6 H PRN Hilaria (Res) Laniiyeh 50 mg at 07/09/18 1601 diphenhydrAMINE 50 mg injection (BENADRYL) 50 mg INTRAVENOUS APHERESIS PRN Lisseth Claudoi MD 50 mg at 07/09/18 1411 DULoxetine (CYMBALTA) cap(s) 90 mg 90 mg ORAL DAILY Camila (Res) MD Odin 90 mg at 07/11/18 0942 hydrocortisone sodium succinate (PF) 100 mg injection (Solu- CORTEF) 100 mg INTRAVENOUS q 6 H PRN Hilaria (Res) Laniiyesusan hydrocortisone sodium succinate (PF) 200 mg injection (Solu- CORTEF) 200 mg INTRAVENOUS APHERESIS PRN Lisseth Claudio MD 200 mg at 07/09/18 1350 HYDROmorphone 2 mg tab(s) (DILAUDID) 2 mg ORAL q 12 H PRN Jorge (Res) Millicent 2 mg at 07/11/18 1304 lidocaine 5 % 1 Patch (LIDODERM) 1 Patch TRANSDERMAL DAILY Bolivar (Res) MD James 1 Patch at 07/06/18 0940 And lidocaine patch - REMOVE OTHER AT BEDTIME Bolivar (Res) MD James And lidocaine - VERIFY PATCH OTHER q 8 H Bolivar (Res) MD James losartan 25 mg tab(s) (COZAAR) 25 mg ORAL DAILY Gladys (Res) MD Flaco 25 mg at 07/11/18 0942 meperidine (PF) 25 mg injection (DEMEROL) 25 mg INTRAVENOUS q 6 H PRN Gladys (Res) MD Flaco miconazole 2 % 1 application topical powder (LOTRIMIN AF, DESENEX) 1 application TOPICAL BID Nevaeh (Res) Sirena 1 application at 07/11/18 204 NaCl 0.9% 10 mL 10 mL INTRAVENOUS q 12 H Sanchez (Res) Natalie 10 mL at 07/11/18 2042 NaCl 0.9% 2-10 mL 2-10 mL INTRAVENOUS q 12 H Sanchez (Res) Natalie 10 mL at 07/11/18 0945 NaCl 0.9% 20 mL 20 mL INTRAVENOUS PRN Sanchez (Res) Natalie 20 mL at 07/09/18 0456 NIFEdipine ER 60 mg tab(S) (PROCARDIA XL) 60 mg ORAL DAILY Sanchez (Res) Natalie 60 mg at 07/11/18 0942 ondansetron (PF) 4 mg injection (ZOFRAN) 4 mg INTRAVENOUS q 8 H PRN Hilaria (Res) Abu-Haniyeh 4 mg at 06/27/18 1758 pamidronate 30 mg in NaCl 0.9% 1,000 mL (AREDIA) 30 mg INTRAVENOUS q 1 WEEK Camila (Res) MD Odin Last Rate: 250 mL/hr at 07/06/18 1231 30 mg at 07/06/[address] 40 mg tab(s) (PROTONIX) 40 mg ORAL DAILY (6 AM) Sanchez (Res) Natalie 40 mg at 07/12/18 0605 pregabalin 150 mg cap(s) (LYRICA) 150 mg ORAL TID Bolivar (Res) MD James 150 mg at 07/11/18 2041 sodium citrate 4% 3-6 mL catheter lock 3-6 mL INTRALUMINAL APHERESIS PRN Zahra Wallace 3 mL at 07/09/18 1535 sodium citrate 4% 3-6 mL catheter lock 3-6 mL INTRALUMINAL APHERESIS PRN Lisseth Claudio MD 3 mL at 07/09/18 1530 sodium hypochlorite topical irrigation 0.25% (DAKINS HALF-STRENGTH) IRRIGATION DAILY Gladys (Res) MD Flaco sodium thiosulfate 25 g in D5W 250 mL 25 g INTRAVENOUS q TU-TH-SA 1800 Ahmed (Res) Karlos Last Rate: 250 mL/hr at 07/10/18 1746 25 g at 07/10/18 1746 warfarin 5 mg tab(s) (COUMADIN) 5 mg ORAL/FEEDING TUBE DAILY - WARFARIN Bolivar (Res) MD James 5 mg at 07/11/18 1732 warfarin order for discharge OTHER PRN Sanchez (Res) Natalie Objective PHYSICAL EXAM: BP 107/73 Pulse 76 Temp (Src) 98.3 (Oral) Resp 18 Ht 5' 3 (1.60m) Wt 240 lb 4.8 oz (109.0kg) SpO2 100% BMI 42.58 kg/(m2). General appearance: Well appearing, alert, in no acute distress, well-hydrated, well nourished. Skin: No fluctuance or erythema around the leg wound. Lungs: Lungs clear to auscultation. ?No wheezing, rhonchi, rales. Heart: RRR without murmur, gallop, or rubs. Abdomen: Normal abdominal exam, Abdomen soft, non-tender. Bowel sounds normal. Extremities: No deformities, edema, skin discoloration, clubbing or cyanosis. Good capillary refill. Peripheral pulses: Normal Lines, Drains, and Airways Line Central Line Single Lumen Tunneled Left Chest -- days Dialysis / Apheresis Double Lumen 03/17/18 1000 Admission to Hospital Tunneled Left Chest 116 days DATA: CBC: Recent Labs 07/11/18 0508 07/08/18 0501 WBC 4.46 3.90 HB 9.2* 8.8* HCT 29.7* 28.4* PLT 112* 114* MCV 89.5 91.0 RDWCV 16.0* 15.6* COAG: Recent Labs 07/12/18 0454 07/11/18 0508 07/10/18 0501 07/09/18 0504 07/08/18 0501 07/07/18 0418 07/06/18 0537 INR 2.7* 2.4* 2.1* 2.6* 2.4* 2.3* 2.2* BMP: Recent Labs 07/11/18 0508 07/08/18 0501 GLUC 83 98 NA 143 139 K 3.7 3.9 CHLOR 100 105 CO2 29 22 ANION 14 12 BUN 19 14 CREAT 1.08* 0.79 CHEM: Recent Labs 07/11/18 0508 07/08/18 0501 CA 8.7 8.2* IMAGING: XR CHEST 2V FRONTAL/LAT Final Result IMPRESSION: As above Glass Edger: MURTAZA Transcribe Date/Time: Jul 10 2018 2:36P Dictated by : BERNARDO LOPES MD This examination was interpreted and the report reviewed and electronically signed by: BERNARDO LOPES MD on Jul 10 2018 2:37PM EST US DVT UPPER LT Final Result IMPRESSION: NEGATIVE STUDY FOR ACUTE DVT IN THE LEFT UPPER EXTREMITY. NEGATIVE STUDY FOR SUPERFICIAL THROMBOPHLEBITIS IN THE LEFT UPPER EXTREMITY NONOCCLUSIVE THROMBUS ALONG THE WALL THE MEDIAL RIGHT SUBCLAVIAN VEIN, PARTIALLY VISUALIZED, WHICH APPEARS CHRONIC. COMMUNICATION: Communicated with: Bolivar Roque on 07/02/2018 at 16:50. Glass Edger: MURTAZA Transcribe Date/Time: Jul 02 2018 4:29P Dictated by : JANNETH CASTAÑEDA MD This examination was interpreted and the report reviewed and electronically signed by: JANNETH CASTAÑEDA MD on Jul 02 2018 4:50PM EST CT ABD/PEL WO IVCON Final Result IMPRESSION: CONTINUED INTERVAL DECREASE IN SIZE OF PREVIOUSLY PRESENT LEFT RETROPERITONEAL HEMATOMA. NO EVIDENCE OF NEW INTERVAL HEMORRHAGE. NO OTHER SIGNIFICANT INTERVAL CHANGE. Glass Edger: PSCB Transcribe Date/Time: Jun 28 2018 8:51P Dictated by : GUILLAUME WORTHY MD This examination was interpreted and the report reviewed and electronically signed by: GUILLAUME WORTHY MD on Jun 28 2018 9:03PM EST Assessment/Plan / hx of APS (on warfarin), DVT, calciphylaxis,??HFrEF,?CKD presenting with calciphylaxis related left leg pain. # Calciphylaxis -Known wound related to calciphylaxis (slightly worse) -Unable to get sodium thiosulfate as an outpatient -Worsening pain Plan -Sodium thiosulfate ?- 25g in 250ml D5W infused over 1 hour ?- Monitor Vital signs during infusion given (low) risk of hypotension ?- BMP once per week to check for anion gap metabolic acidosis ?PRN during infusion:?- Acetaminophen 650mg PRN as needed for headache (will premedicate with acetaminophen if headaches are frequent) ?- Diphenhydramine 50 mg IV PRN hypotension, shortness of breath or bronchospasm ?- Meperidine 25 mg Injection PRN for rigors ?- Stop infusion if either hypotension or rigors occur. Solu-cortef 100mg IV and normal saline as needed for hypotension ?- Ondansetron 8 mg IV PRN Nausea/Vomiting (will premedicate with ondansetron if nausea/vomiting frequent) -Pain management recs: weaning Dilaudid. Methadone d/c'd -Dermatology consulted, punch biopsy obtained - sutures will need to be removed -IV pamidronate 30 mg q Monday -Wound care per dermatology: washing with saline wound wash, packing with daikin soaked gauze, gauze and tape - PLEX 07/23/18 # Antiphospholipid antibody syndrome # Chronic pain -Continue home coumadin, daily INR ?-Typically takes 5 mg warfarin daily, except 7.5 mg on the day of PLEX and 1-2 days following - APAP 650mg PO 4x/day PRN - Cymbalta to 90mg PO qAM - Lyrica 150 mg TID - Weaning pain Rx ? #HFrEF #HTN -Continue home Procardia, Coreg, Cozaar ? #Hx seasonal allergies #Hx of Hives -Continue home certirizine -Diphenhydramine prn ? #GERD -Continue home pantoprazole Bolivar Roque MD PGY-1 Neurology 07/12/18 6:24 AM ATTENDING PHYSICIAN: Patient seen and evaluated today Fernandes elements of history and physical examination of the patient were confirmed. The assessment and plan were formulated and discussed with the team on Rounds. I reviewed the resident's note, examined the patient and agree with the documented findings and plan of care. Calciphylaxis, Antiphospholipid Syndrome Home when Na Thiosulfate arranged for out-patient infusion Patient very concerned about fluid overload, so cont on torsemide (home meds), checked CXR (clear) and weigh daily, fluid restriction 1400 ml. Cont on pain control - but difficult. May increase Lyrica. Signed: Steve Crews MD Attending, Associate Staff Department of Hospital Medicine [facility] PROTIME Collected: 07/12/2018 Status: F Source: [place] 4:54 AM [facility] REPOSITORY TYPE CODE TESTS RESULT OUT OF RANGE REFERENCE UNITS LAB PSEC 9.7-13.0 sec High PT Sec 26.9 LAB INR 0.9-1.3 High PT INR 2.7 Result Comment: Vitamin K Antagonist (VKA) Therapeutic Range: INR 2 to 3 (Target INR of 2.5) Note: For patients treated with VKA drugs, such as warfarin, the [employer] 2012 Guideline recommends [...] Chest 2012, 141:7S-47S Diogenes RA, et al. [facility] 2017, 70: 252-289 Performed By: #### PT #### [facility] [address] [address] CASE MANAGEM Observed: 07/11/2018 Status: COMPLETED Source: [place] 12:03 PM [facility] REPOSITORY HNO ID: [id number] Author: Cherrie Loaiza (Asst) Service: Care Management Author Type: [facility] [employer] Sander Type: Care Mgt Progress Note Filed: 07/11/2018 12:04 PM Note Text: CARE MANAGEMENT PROGRESS NOTE SERVICE DATE: 07/11/2018 SERVICE TIME: 11:01 LOS: 18 days IM letter given to patient on 07/11/18. SIGNATURE: Asst Xiomara PATIENT NAME: Paloma Cannon DATE: July 11, 2018 TIME: 12:03 PM PAGER/CONTACT #: [phone] CASE MANAGEM Observed: 07/11/2018 Status: COMPLETED Source: [place] 8:55 AM [facility] REPOSITORY HNO ID: [id number] Author: Jacinta Aguilar (Rn) JEFF Olmedo Service: Care Management Author Type: Registered Nurse Type: Care Mgt Progress Note Filed: 07/11/2018 8:58 AM Note Text: CARE MANAGEMENT PROGRESS NOTE SERVICE DATE: 07/11/2018 SERVICE TIME: 8:55 AM LOS: 18 days Needs Prior to Discharge: Insurance Authorization (scheduling to infusion center) DC date tbd. Per EMR, Awaiting approval of pamidronate na thiosulfate denied coverage) by insurance, and scheduling at [facility] OP infusion center rather than [facility] at pt request. (Oncology/dermatology arranging). PT recs OP PT. CM to continue to follow SIGNATURE: Jacinta Olemdo RN PATIENT NAME: Paloma Cannon DATE: July 11, 2018 TIME: 8:55 AM PAGER/CONTACT #: [phone] PROGRESS Observed: 07/11/2018 Status: COMPLETED Source: [place] 6:18 AM [facility] REPOSITORY HNO ID: [id number] Author: Steve Crews Service: General Internal Medicine Author Type: Physician Type: Progress Notes Filed: 07/11/2018 11:29 PM Note Text: . VIPUL Terry INTERNAL MEDICINE PROGRESS NOTE Paloma Cannon [id number] SERVICE DATE: 07/11/18 SERVICE TIME: 6:19 AM Subjective INTERVAL HPI: - MARILEE - PLEX - next 07/23/18 - Pamidronate - Next 07/13/18 - Continuing warfarin 5 mg qd - Needs sutures removed from leg wound by dermatology - will contact - Needs desat study prior to d/c - Increased lyrica to 150 TID today for increased pain control MEDICATIONS: Current Facility-Administered Medications: acetaminophen 650 mg tab(s) (TYLENOL) 650 mg ORAL q 6 H PRN Gladys (ResDevonte Sam MD 650 mg at 07/11/18 1847 carvedilol 12.5 mg tab(s) (COREG) 12.5 mg ORAL BID bk Mays (Res) Natalie 12.5 mg at 07/10/18 1746 cetirizine 10 mg tab(s) (ZyrTEC) 10 mg ORAL BID Sanchez (Res) Natalie 10 mg at 07/10/182044 diphenhydrAMINE 50 mg (BENADRYL) 50 mg ORAL q 6 H PRN Hilaria (Res) Abu-Haniyeh 50 mg at 07/09/18 1601 diphenhydrAMINE 50 mg injection (BENADRYL) 50 mg INTRAVENOUS APHERESIS PRN Lisseth Claudio MD 50 mg at 07/09/18 1411 DULoxetine (CYMBALTA) cap(s) 90 mg 90 mg ORAL DAILY Camila (Res) MD Odin 90 mg at 07/10/18 0958 hydrocortisone sodium succinate (PF) 100 mg injection (Solu- CORTEF) 100 mg INTRAVENOUS q 6 H PRN Hilaria (Res) u-Haniyeh hydrocortisone sodium succinate (PF) 200 mg injection (Solu- CORTEF) 200 mg INTRAVENOUS APHERESIS PRN Lisseth Claudio MD 200 mg at 07/09/18 1350 HYDROmorphone 2 mg tab(s) (DILAUDID) 2 mg ORAL q 12 H PRN Jorge (Res) Millicent 2 mg at 07/11/18 0107 lidocaine 5 % 1 Patch (LIDODERM) 1 Patch TRANSDERMAL DAILY Bolivar (Res) MD James 1 Patch at 07/06/18 0940 And lidocaine patch - REMOVE OTHER AT BEDTIME Bolivar (Res) MD James And lidocaine - VERIFY PATCH OTHER q 8 H Bolivar (Res) MD James losartan 25 mg tab(s) (COZAAR) 25 mg ORAL DAILY Gladys (Res) MD Flaco 25 mg at 07/10/18 0958 meperidine (PF) 25 mg injection (DEMEROL) 25 mg INTRAVENOUS q 6 H PRN Gladys (Res) MD Flaco miconazole 2 % 1 application topical powder (LOTRIMIN AF, DESENEX) 1 application TOPICAL BID Nevaeh (Res) Garethckenberger 1 application at 07/10/182044 NaCl 0.9% 10 mL 10 mL INTRAVENOUS q 12 H Sanchez (Res) Natalie 10 mL at 07/10/182046 NaCl 0.9% 2-10 mL 2-10 mL INTRAVENOUS q 12 H Sanchez (ResDevonte Natalie 5 mL at 07/10/182046 NaCl 0.9% 20 mL 20 mL INTRAVENOUS PRN Sanchez Mg Natalie 20 mL at 07/09/18 0456 NIFEdipine ER 60 mg tab(S) (PROCARDIA XL) 60 mg ORAL DAILY Sanchez (ResDevonte Natalie 60 mg at 07/10/18 0958 ondansetron (PF) 4 mg injection (ZOFRAN) 4 mg INTRAVENOUS q 8 H PRN Hilaria (Res) Abu-Haniyeh 4 mg at 06/27/18 1758 pamidronate 30 mg in NaCl 0.9% 1,000 mL (AREDIA) 30 mg INTRAVENOUS q 1 WEEK Camila (Res) MD Odin Last Rate: 250 mL/hr at 07/06/18 1231 30 mg at 07/06/[address] 40 mg tab(s) (PROTONIX) 40 mg ORAL DAILY (6 AM) Sanchez SanchezResDevonte Natalie 40 mg at 07/11/18 0457 pregabalin 150 mg cap(s) (LYRICA) 150 mg ORAL TID Bolivar (Res) MD James 150 mg at 07/10/18 204 sodium citrate 4% 3-6 mL catheter lock 3-6 mL INTRALUMINAL APHERESIS PRN Zahra Wallace 3 mL at 07/09/18 1535 sodium citrate 4% 3-6 mL catheter lock 3-6 mL INTRALUMINAL APHERESIS PRN Lisseth Claudio MD 3 mL at 07/09/18 1530 sodium hypochlorite topical irrigation 0.25% (DAKINS HALF-STRENGTH) IRRIGATION DAILY Gladys (Res) MD Flaco sodium thiosulfate 25 g in D5W 250 mL 25 g INTRAVENOUS q 1799 Hilaria (Res) Abu-Haniyeh Last Rate: 250 mL/hr at 07/10/18 1746 25 g at 07/10/18 174 torsemide 30 mg tab(s) (DEMADEX) 30 mg ORAL BID Uddalak Eleonora 30 mg at 07/10/18 204 warfarin 5 mg tab(s) (COUMADIN) 5 mg ORAL/FEEDING TUBE DAILY - WARFARIN Bolivar (ResDevonte Roque MD 5 mg at 07/10/18 1746 warfarin order for discharge OTHER BHUMIN Sanchez (Res) Natalie Objective PHYSICAL EXAM: BP 108/50 Pulse 78 Temp (Src) 98.9 (Oral) Resp 18 Ht 5' 3 (1.60m) Wt 240 lb 4.8 oz (109.0kg) SpO2 96% BMI 42.58 kg/(m2). General appearance: Well appearing, alert, in no acute distress, well-hydrated, well nourished. Skin: No fluctuance or erythema around the leg wound. Lungs: Lungs clear to auscultation. ?No wheezing, rhonchi, rales. Heart: RRR without murmur, gallop, or rubs. Abdomen: Normal abdominal exam, Abdomen soft, non-tender. Bowel sounds normal. Extremities: No deformities, edema, skin discoloration, clubbing or cyanosis. Good capillary refill. Peripheral pulses: Normal Lines, Drains, and Airways Line Central Line Single Lumen Tunneled Left Chest -- days Dialysis / Apheresis Double Lumen 03/17/18 1000 Admission to Hospital Tunneled Left Chest 115 days DATA: CBC: Recent Labs 07/08/18 0501 07/05/18 0536 WBC 3.90 4.61 HB 8.8* 8.4* HCT 28.4* 26.6* PLT 114* 118* MCV 91.0 89.3 RDWCV 15.6* 15.4* COAG: Recent Labs 07/10/18 0501 07/09/18 0504 07/08/18 0501 07/07/18 0418 07/06/18 0537 07/05/18 0536 INR 2.1* 2.6* 2.4* 2.3* 2.2* 2.3* BMP: Recent Labs 07/08/18 0501 07/05/18 0536 GLUC 98 98 NA 139 139 K 3.9 4.1 CHLOR 105 106* CO2 22 25 ANION 12 8* BUN 14 22* CREAT 0.79 0.96 CHEM: Recent Labs 07/08/18 0501 07/05/18 0536 CA 8.2* 7.7* IMAGING: XR CHEST 2V FRONTAL/LAT Final Result IMPRESSION: As above Glass Edger: PSCB Transcribe Date/Time: Jul 10 2018 2:36P Dictated by : BERNARDO LOPES MD This examination was interpreted and the report reviewed and electronically signed by: BERNARDO LOPES MD on Jul 10 2018 2:37PM EST US DVT UPPER LT Final Result IMPRESSION: NEGATIVE STUDY FOR ACUTE DVT IN THE LEFT UPPER EXTREMITY. NEGATIVE STUDY FOR SUPERFICIAL THROMBOPHLEBITIS IN THE LEFT UPPER EXTREMITY NONOCCLUSIVE THROMBUS ALONG THE WALL THE MEDIAL RIGHT SUBCLAVIAN VEIN, PARTIALLY VISUALIZED, WHICH APPEARS CHRONIC. COMMUNICATION: Communicated with: Bolivar Roque on 07/02/2018 at 16:50. Glass Edger: PSCB Transcribe Date/Time: Jul 02 2018 4:29P Dictated by : JANNETH CASTAÑEDA MD This examination was interpreted and the report reviewed and electronically signed by: JANNETH CASTAÑEDA MD on Jul 02 2018 4:50PM EST CT ABD/PEL WO IVCON Final Result IMPRESSION: CONTINUED INTERVAL DECREASE IN SIZE OF PREVIOUSLY PRESENT LEFT RETROPERITONEAL HEMATOMA. NO EVIDENCE OF NEW INTERVAL HEMORRHAGE. NO OTHER SIGNIFICANT INTERVAL CHANGE. 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 # Calciphylaxis -Known wound related to calciphylaxis (slightly worse) -Unable to get sodium thiosulfate as an outpatient -Worsening pain Plan -Sodium thiosulfate ?- 25g in 250ml D5W infused over 1 hour ?- Monitor Vital signs during infusion given (low) risk of hypotension ?- BMP once per week to check for anion gap metabolic acidosis ?PRN during infusion:?- Acetaminophen 650mg PRN as needed for headache (will premedicate with acetaminophen if headaches are frequent) ?- Diphenhydramine 50 mg IV PRN hypotension, shortness of breath or bronchospasm ?- Meperidine 25 mg Injection PRN for rigors ?- Stop infusion if either hypotension or rigors occur. Solu-cortef 100mg IV and normal saline as needed for hypotension ?- Ondansetron 8 mg IV PRN Nausea/Vomiting (will premedicate with ondansetron if nausea/vomiting frequent) -Pain management recs: weaning Dilaudid. Methadone d/c'd -Dermatology consulted, punch biopsy obtained - sutures will need to be removed -IV pamidronate 30 mg q Monday -Wound care per dermatology: washing with saline wound wash, packing with daikin soaked gauze, gauze and tape - PLEX 07/23/18 # Antiphospholipid antibody syndrome # Chronic pain -Continue home coumadin, daily INR ?-Typically takes 5 mg warfarin daily, except 7.5 mg on the day of PLEX and 1-2 days following - APAP 650mg PO 4x/day PRN - Cymbalta to 90mg PO qAM - Lyrica 150 mg TID - Weaning pain Rx ? #HFrEF #HTN -Continue home Procardia, Coreg, Cozaar ? #Hx seasonal allergies #Hx of Hives -Continue home certirizine -Diphenhydramine prn ? #GERD -Continue home pantoprazole Bolivar Roque MD PGY-1 Neurology 07/11/18 6:18 AM ATTENDING PHYSICIAN: Patient seen and evaluated today Fernandes elements of history and physical examination of the patient were confirmed. The assessment and plan were formulated and discussed with the team on Rounds. I reviewed the resident's note, examined the patient and agree with the documented findings and plan of care. Calciphylaxis, Antiphospholipid Syndrome Home in 1-2 days when Na Thiosulfate arranged for out-patient infusion Patient very concerned about fluid overload, so cont on torsemide (home meds), checked CXR (clear) and weigh daily, fluid restriction 1400 ml. Cont on pain control - but difficult. May increase Lyrica. Signed: Steve Crews MD Attending, Associate Staff Department of Hospital Medicine [facility] PROTIME Collected: 07/11/2018 Status: F Source: [place] 5:08 AM [facility] REPOSITORY TYPE CODE TESTS RESULT OUT OF RANGE REFERENCE UNITS LAB PSEC 9.7-13.0 sec High PT Sec 23.9 LAB INR 0.9-1.3 High PT INR 2.4 Result Comment: Vitamin K Antagonist (VKA) Therapeutic Range: INR 2 to 3 (Target INR of 2.5) Note: For patients treated with VKA drugs, such as warfarin, the [employer] 2012 Guideline recommends [...] Chest 2012, 141:7S-47S Diogenes RA, et al. [facility] 2017, 70: 252-289 Performed By: #### PT, CBC, BMP #### [facility] [address] [address] CBC Collected: 07/11/2018 Status: F Source: [place] 5:08 AM [facility] REPOSITORY TYPE CODE TESTS RESULT OUT OF REFERENCE UNITS RANGE LAB WBC 3.70-11.00 k/uL WBC 4.46 LAB RBC 3.90-5.20 m/uL Low RBC 3.32 LAB HGB 11.5-15.5 g/dL Low Hemoglobin 9.2 LAB HCT 36.0-46.0 % Low Hematocrit 29.7 LAB MCV 80.0-100.0 fL MCV 89.5 LAB MCH 26.0-34.0 pG MCH 27.7 LAB MCHC 30.5-36.0 g/dL MCHC 31.0 LAB RDWCV 11.5-15.0 % RDW-CV High 16.0 LAB PLTCT 150-400 k/uL Low Platelet Count 112 LAB MPV 9.0-12.7 fL MPV 10.3 LAB ABSNUC <0.01 k/uL Absolute nRBC <0.01 Performed By: #### PT, CBC, BMP #### [facility] [address] [place] [id number] BASIC METABOLIC PANL Collected: 07/11/2018 Status: F Source: [place] 5:08 AM [facility] REPOSITORY TYPE CODE TESTS RESULT OUT OF REFERENCE UNITS RANGE LAB GLU 74-99 mg/dL Glucose 83 Result Comment: The [place] [employer] (ADA) provides guidance for cutoff [...] Standards of Medical Care in Diabetes 2016, [place] [employer]. Diabetes Care. 2016.39(Suppl 1). LAB BUN 7-21 mg/dL BUN 19 LAB CRET 0.58-0.96 mg/dL Creatinine High 1.08 LAB NA 136-144 mmol/L Sodium 143 LAB K 3.7-5.1 mmol/L Potassium 3.7 LAB CL 97-105 mmol/L Chloride 100 LAB CO2 22-30 mmol/L CO2 29 LAB AGAP 9-18 mmol/L Anion Gap 14 LAB CA 8.5-10.2 mg/dL Calcium, Total 8.7 [...] Performed By: #### PT, CBC, BMP #### [facility] [address] [place], [place] [address] NURSING PROG Observed: 07/10/2018 Status: COMPLETED Source: [place] 10:31 AM [facility] REPOSITORY HNO ID: [id number] Author: Tiffani SanchezRn) JEFF Hernadez Service: (none) Author Type: Registered Nurse Type: Nursing Progress Note Filed: 07/10/2018 12:37 PM Note Text: Nursing Progress Note Patient Name: Paloma Cannon Patient Location: H080 009/H080-09 Pt is AANDOx3. VSS, afebrile, SAT's WNL on 2L NC. C/o pain to the LLE, prn dilaudid administered early per nurse comm from [place]. Pt currently resting at this time. Will monitor. Labs being monitored daily. OOB with steady gait. 3+ edema noted to the BLE, toresamide administered per MAR. Will monitor closely. Dressing intact to LLE and changed per order. Skin prevention maintained. Pt encouraged to turn q2 turns however refuses at times, Educated on importance. Fall/safety prevention maintained. Made dr roque aware pt refuse lidocain patch. Will monitor This note was completed by: Tiffani Hernadez RN PROGRESS Observed: 07/10/2018 Status: COMPLETED Source: [place] 9:37 AM [facility] REPOSITORY HNO ID: [id number] Author: Gisele Aguilar (Rt) Allyson Powers Service: Radiology Author Type: Chute Operator Type: Progress Notes Filed: 07/10/2018 9:37 AM Note Text: Radiology Service Progress Note PATIENT NAME: Paloma Cannon DATE OF SERVICE: July 10, 2018 TIME: 9:37 AM PATIENT IDENTITY VERIFICATION COMPLETED USING TWO (2) METHODS: Patient confirmed name verbally and Date of . PATIENT GENDER DATA: Female. status: : No status: NO. PATIENT RELEVANT IMPLANT DATA REVIEWED: Not Applicable RADIOLOGY DEPARTMENT: General X-ray: Exam(s) Completed: Chest X-Ray PERIPHERAL IV DATA: Not applicable SIGNED BY: RT Gavino July 10, 2018 9:37 AM XR CHEST 2V FRONTAL/LAT Observed: 07/10/2018 Status: F Source: [place] 9:36 AM [facility] REPOSITORY * * *Final Report* * * DATE OF EXAM: Jul 10 2018 9:36AM [facility] [id number] - XR CHEST 2V FRONTAL/LAT / PROCEDURE REASON: Shortness of breath * * * * Physician Interpretation * * * * EXAMINATION: CHEST RADIOGRAPH (2 VIEW FRONTAL and LATERAL) CLINICAL HISTORY: Shortness of breath, MQ: XC2_5 Comparison: 06/05/2018 RESULT: Lines, tubes, and devices: Stable placement of left IJ catheters. Lungs and pleura: Lungs remain hypoinflated with no consolidation or mass lesion. Minimal atelectatic changes remain along the medial aspect of the bases. Prominence of the lung markings in the perihilar and basilar regions is likely secondary to crowded vessels, given the low lung volume. This could limit the evaluation for subtle interstitial or bronchial abnormalities, especially in the medial aspect of the bases. No significant pleural effusion or pneumothorax. There is blunting of the left CP angle which may represent tiny effusion or pleural thickening. Cardiomediastinal silhouette: Heart is within normal. Azygos vein is dilated Other: IMPRESSION: As above Glass Edger: MURTAZA Transcribe Date/Time: Jul 10 2018 2:36P Dictated by : BERNARDO LOPES MD This examination was interpreted and the report reviewed and electronically signed by: BERNARDO LOPES MD on Jul 10 2018 2:37PM EST [id number] PROGRESS Observed: 07/10/2018 Status: COMPLETED Source: [place] 6:30 AM [facility] REPOSITORY HNO ID: [id number] Author: Steve Crews Service: General Internal Medicine Author Type: Physician Type: Progress Notes Filed: 07/10/2018 2:28 PM Note Text: . VIPUL Terry INTERNAL MEDICINE PROGRESS NOTE Paloma Cannon [id number] SERVICE DATE: 07/10/18 SERVICE TIME: 6:32 AM Subjective INTERVAL HPI: - MARILEE - PLEX completed yesterday - next 07/23/18 - Received warfarin 7.5 mg following PLEX, will reschedule back to 5 mg qd - 30 mg torsemide given for fluid overload, no fluid output recorded -CXR this AM without significant effusions/edema - Needs sutures removed from leg wound by dermatology - Needs desat study prior to d/c - Increase lyrica to 150 TID today for increased pain control MEDICATIONS: Current Facility-Administered Medications: acetaminophen 650 mg tab(s) (TYLENOL) 650 mg ORAL q 6 H PRN Gladys (Res) MD Flaco 650 mg at 07/10/18 0417 carvedilol 12.5 mg tab(s) (COREG) 12.5 mg ORAL BID w MEALS Sanchez (Res) Natalie 12.5 mg at 07/09/18 1800 cetirizine 10 mg tab(s) (ZyrTEC) 10 mg ORAL BID Sanchez (Res) Natalie 10 mg at 07/09/18 2020 diphenhydrAMINE 50 mg (BENADRYL) 50 mg ORAL q 6 H PRN Hilaria (Res) Laniiyeh 50 mg at 07/09/18 1601 diphenhydrAMINE 50 mg injection (BENADRYL) 50 mg INTRAVENOUS APHERESIS PRN Lisseth Claudio MD 50 mg at 07/09/18 1411 DULoxetine (CYMBALTA) cap(s) 90 mg 90 mg ORAL DAILY Camila (Res) MD Odin 90 mg at 07/09/18 0832 hydrocortisone sodium succinate (PF) 100 mg injection (Solu- CORTEF) 100 mg INTRAVENOUS q 6 H PRN Hilaria (Res) Melissa-Luis Eduardoiyesusan hydrocortisone sodium succinate (PF) 200 mg injection (Solu- CORTEF) 200 mg INTRAVENOUS APHERESIS PRN Lisseth Claudio MD 200 mg at 07/09/18 1350 HYDROmorphone 2 mg tab(s) (DILAUDID) 2 mg ORAL q 12 H PRN Jorge SanchezResDevonte Ricks 2 mg at 07/10/18 0131 lidocaine 5 % 1 Patch (LIDODERM) 1 Patch TRANSDERMAL DAILY Bolivar SanchezResDevonte Roque MD 1 Patch at 07/06/18 0940 And lidocaine patch - REMOVE OTHER AT BEDTIME Bolivar (Res) MD James And lidocaine - VERIFY PATCH OTHER q 8 H Bolivar (Res) MD James losartan 25 mg tab(s) (COZAAR) 25 mg ORAL DAILY Gladys (Res) MD Flaco 25 mg at 07/09/18 0832 meperidine (PF) 25 mg injection (DEMEROL) 25 mg INTRAVENOUS q 6 H PRN Gladys (Res) MD Flaco miconazole 2 % 1 application topical powder (LOTRIMIN AF, DESENEX) 1 application TOPICAL BID Nevaeh (Res) Sirena 1 application at 07/09/18 202 NaCl 0.9% 10 mL 10 mL INTRAVENOUS q 12 H Sanchez (Res) Natalie 10 mL at 07/09/18 202 NaCl 0.9% 2-10 mL 2-10 mL INTRAVENOUS q 12 H Sanchez (Res) Natalie 10 mL at 07/09/18 0836 NaCl 0.9% 20 mL 20 mL INTRAVENOUS PRN Sanchez (Res) Natalie 20 mL at 07/09/18 0456 NIFEdipine ER 60 mg tab(S) (PROCARDIA XL) 60 mg ORAL DAILY Sanchez (Res) Natalie 60 mg at 07/09/18 0833 ondansetron (PF) 4 mg injection (ZOFRAN) 4 mg INTRAVENOUS q 8 H PRN Hilaria (Res) Abu-Haniyeh 4 mg at 06/27/18 1758 pamidronate 30 mg in NaCl 0.9% 1,000 mL (AREDIA) 30 mg INTRAVENOUS q 1 WEEK Camila (Res) MD Odin Last Rate: 250 mL/hr at 07/06/18 1231 30 mg at 07/06/[address] 40 mg tab(s) (PROTONIX) 40 mg ORAL DAILY (6 AM) Sanchez (Res) Natalie 40 mg at 07/10/18 0509 pregabalin 100 mg cap(s) (LYRICA) 100 mg ORAL DAILY Bolivar (Res) MD James 100 mg at 07/09/18 0833 pregabalin 150 mg cap(s) (LYRICA) 150 mg ORAL AT BEDTIME Jorge (ResDevonte Ricks 150 mg at 07/09/18 2020 pregabalin 150 mg cap(s) (LYRICA) 150 mg ORAL DAILY (4 PM) Bolivar (Res) MD James 150 mg at 07/09/18 1601 sodium citrate 4% 3-6 mL catheter lock 3-6 mL INTRALUMINAL APHERESIS PRN Zahra Wallace 3 mL at 07/09/18 1535 sodium citrate 4% 3-6 mL catheter lock 3-6 mL INTRALUMINAL APHERESIS PRN Lisseth Claudio MD 3 mL at 07/09/18 1530 sodium hypochlorite topical irrigation 0.25% (DAKINS HALF-STRENGTH) IRRIGATION DAILY Gladys (Res) MD Flaco sodium thiosulfate 25 g in D5W 250 mL 25 g INTRAVENOUS q 1800 Ahmed (Res) MelissaLatrice Last Rate: 250 mL/hr at 07/07/18 1722 25 g at 07/07/18 1722 torsemide 30 mg tab(s) (DEMADEX) 30 mg ORAL BID Uddalak Eleonora warfarin 5 mg tab(s) (COUMADIN) 5 mg ORAL/FEEDING TUBE DAILY - WARFARIN Bolivar (Res) MD James warfarin order for discharge OTHER PRN Sanchez (Res) Natalie Objective PHYSICAL EXAM: BP 130/75 Pulse 83 Temp (Src) 97.9 (Oral) Resp 16 Ht 5' 3 (1.60m) Wt 240 lb 4.8 oz (109.0kg) SpO2 100% BMI 42.58 kg/(m2). General appearance: Well appearing, alert, in no acute distress, well-hydrated, well nourished. Skin: No fluctuance or erythema around the leg wound. Lungs: Lungs clear to auscultation. ?No wheezing, rhonchi, rales. Heart: RRR without murmur, gallop, or rubs. Abdomen: Normal abdominal exam, Abdomen soft, non-tender. Bowel sounds normal. Extremities: No deformities, edema, skin discoloration, clubbing or cyanosis. Good capillary refill. Peripheral pulses: Normal Lines, Drains, and Airways Line Central Line Single Lumen Tunneled Left Chest -- days Dialysis / Apheresis Double Lumen 03/17/18 1000 Admission to Hospital Tunneled Left Chest 114 days DATA: CBC: Recent Labs 07/08/18 0501 07/05/18 0536 WBC 3.90 4.61 HB 8.8* 8.4* HCT 28.4* 26.6* PLT 114* 118* MCV 91.0 89.3 RDWCV 15.6* 15.4* COAG: Recent Labs 07/10/18 0501 07/09/18 0504 07/08/18 0501 07/07/18 0418 07/06/18 0537 07/05/18 0536 07/04/18 0543 INR 2.1* 2.6* 2.4* 2.3* 2.2* 2.3* 2.5* BMP: Recent Labs 07/08/18 0501 07/05/18 0536 GLUC 98 98 NA 139 139 K 3.9 4.1 CHLOR 105 106* CO2 22 25 ANION 12 8* BUN 14 22* CREAT 0.79 0.96 CHEM: Recent Labs 07/08/18 0501 07/05/18 0536 CA 8.2* 7.7* IMAGING: US DVT UPPER LT Final Result IMPRESSION: NEGATIVE STUDY FOR ACUTE DVT IN THE LEFT UPPER EXTREMITY. NEGATIVE STUDY FOR SUPERFICIAL THROMBOPHLEBITIS IN THE LEFT UPPER EXTREMITY NONOCCLUSIVE THROMBUS ALONG THE WALL THE MEDIAL RIGHT SUBCLAVIAN VEIN, PARTIALLY VISUALIZED, WHICH APPEARS CHRONIC. COMMUNICATION: Communicated with: Bolivar Roque on 07/02/2018 at 16:50. Glass Edger: MURTAZA Transcribe Date/Time: Jul 02 2018 4:29P Dictated by : JANNETH CASTAÑEDA MD This examination was interpreted and the report reviewed and electronically signed by: JANNETH CASTAÑEDA MD on Jul 02 2018 4:50PM EST CT ABD/PEL WO IVCON Final Result IMPRESSION: CONTINUED INTERVAL DECREASE IN SIZE OF PREVIOUSLY PRESENT LEFT RETROPERITONEAL HEMATOMA. NO EVIDENCE OF NEW INTERVAL HEMORRHAGE. NO OTHER SIGNIFICANT INTERVAL CHANGE. Glass Edger: MURTAZA Transcribe Date/Time: Jun 28 2018 8:51P Dictated by : GUILLAUME WORTHY MD This examination was interpreted and the report reviewed and electronically signed by: GUILLAUME WORTHY MD on Jun 28 2018 9:03PM EST XR CHEST 2V FRONTAL/LAT (Results Pending) Assessment/Plan hx of APS (on warfarin), DVT, calciphylaxis,??HFrEF,?CKD presenting with calciphylaxis related left leg pain. # Calciphylaxis -Known wound related to calciphylaxis (slightly worse) -Unable to get sodium thiosulfate as an outpatient -Worsening pain Plan -Sodium thiosulfate ?- 25g in 250ml D5W infused over 1 hour ?- Monitor Vital signs during infusion given (low) risk of hypotension ?- BMP once per week to check for anion gap metabolic acidosis ?PRN during infusion:?- Acetaminophen 650mg PRN as needed for headache (will premedicate with acetaminophen if headaches are frequent) ?- Diphenhydramine 50 mg IV PRN hypotension, shortness of breath or bronchospasm ?- Meperidine 25 mg Injection PRN for rigors ?- Stop infusion if either hypotension or rigors occur. Solu-cortef 100mg IV and normal saline as needed for hypotension ?- Ondansetron 8 mg IV PRN Nausea/Vomiting (will premedicate with ondansetron if nausea/vomiting frequent) -Pain management recs: weaning Dilaudid and methadone -Dermatology consulted, punch biopsy obtained - sutures will need to be removed 07/09 -IV pamidronate 30 mg q Monday -Wound care per dermatology: washing with saline wound wash, packing with daikin soaked gauze, gauze and tape - PLEX 07/23/18 # Antiphospholipid antibody syndrome # Chronic pain -Continue home coumadin, daily INR ?-Typically takes 5 mg warfarin daily, except 7.5 mg on the day of PLEX and 1-2 days following - APAP 650mg PO 4x/day PRN - Cymbalta to 90mg PO qAM - Weaning pain Rx ? #HFrEF #HTN -Continue home Procardia, Coreg, Cozaar ? #Hx seasonal allergies #Hx of Hives -Continue home certirizine -Diphenhydramine prn ? #GERD -Continue home pantoprazole Bolivar Roque MD PGY-1 Neurology 07/10/18 6:30 AM ATTENDING PHYSICIAN: Patient seen and evaluated today Fernandes elements of history and physical examination of the patient were confirmed. The assessment and plan were formulated and discussed with the team on Rounds. I reviewed the resident's note, examined the patient and agree with the documented findings and plan of care. Calciphylaxis, Antiphospholipid Syndrome Home in 1-2 days when Na Thiosulfate arranged for out-patient infusion Family was very concerned about fluid overload, so starting torsemide (home meds), checked CXR (clear) and weigh daily, fluid restriction 1400 ml. Cont on pain control - but difficult. May increase Lyrica. Signed: Steve Crews MD Attending, Associate Staff Department of Hospital Medicine [facility] PROTIME Collected: 07/10/2018 Status: F Source: [place] 5:01 AM [facility] [place] REPOSITORY TYPE CODE TESTS RESULT OUT OF RANGE REFERENCE UNITS LAB PSEC 9.7-13.0 sec High PT Sec 20.9 LAB INR 0.9-1.3 High PT INR 2.1 Result Comment: Vitamin K Antagonist (VKA) Therapeutic Range: INR 2 to 3 (Target INR of 2.5) Note: For patients treated with VKA drugs, such as warfarin, the [employer] 2012 Guideline recommends [...] 70: 252-289 Performed By: #### PT #### [facility] [address] [place], [place] [address] CONSULT PROG Observed: 07/09/2018 Status: COMPLETED Source: [place] 4:51 PM [facility] REPOSITORY HNO ID: [id number] Author: Renetta Moscoso Service: Dermatology Author Type: Resident Type: Consult Progress Note Filed: 07/09/2018 4:55 PM Note Text: DERMATOLOGY HOSPITAL CONSULT SERVICE PROGRESS NOTE Interval Events - No acute events overnight - Pain well controlled today PHYSICAL EXAM BP 106/56 Pulse 66 Temp 36.6 ?C (97.8 ?F) (Oral) Resp 18 Ht 160 cm (5' 3) Wt 109 kg (240 lb 4.8 oz) SpO2 100% BMI 42.57 kg/m? Skin type: I GEN: awake, no acute distress Skin examination of the BLE including feet and was pertinent for: - Left lower leg with well demarcated ulceration with surrounding induration. No purulent discharge. LABORATORY TESTS: CBC: Recent Labs 07/08/18 0501 07/05/18 0536 WBC 3.90 4.61 HB 8.8* 8.4* HCT 28.4* 26.6* PLT 114* 118* MCV 91.0 89.3 RDWCV 15.6* 15.4* COAG: Recent Labs 07/09/18 0504 07/08/18 0501 07/07/18 0418 07/06/18 0537 07/05/18 0536 07/04/18 0543 07/03/18 0337 INR 2.6* 2.4* 2.3* 2.2* 2.3* 2.5* 3.3* BMP: Recent Labs 07/08/18 0501 07/05/18 0536 GLUC 98 98 NA 139 139 K 3.9 4.1 CHLOR 105 106* CO2 22 25 ANION 12 8* BUN 14 22* CREAT 0.79 0.96 CHEM: Recent Labs 07/08/18 0501 07/05/18 0536 CA 8.2* 7.7* HEPATIC: No results for input(s): ALKPHOS, ALT, AST, TBILI, LIPASE in the last 168 hours. URINALYSIS:No results for input(s): PH, SPGR, UGLUC, UBILI, UKET, UHB, UPROT, UROBIL, UWBC, SSA in the last 168 hours. Invalid input(s): NITR CARDIAC: No results for input(s): CKTEST, CKMB, CKMBP, TROPT, PBNP in the last 168 hours. ABG: No results for input(s): PH, PCO2, PO2, BE, HCO3, CO2CT, O2HB, COHB, MHGB, TEMP, PHTC, PCO2T, PO2T, O2AD in the last 168 hours. FINAL DIAGNOSIS A. Skin, left leg, punch biopsy - Calciphylaxis (see comment). MP/CE/rw 06/27/2018 COMMENT Histologic sections demonstrate an effaced epidermis. The underlying dermis is fibrotic with vertically oriented blood vessels consistent with scar. Within the subcutis, there is extensive calcium deposition within the fat lobules and in the valente of small vessels within the subcutis. Additionally, there is stippled extracellular calcium. These histologic features are compatible with the clinical impression of calciphylaxis. A/P: Ms Cannon is a 28 year old female with a PMHx of antiphyospholipid syndrome on coumadin AND plasmapheresis, PAD, DVT, ?HFrEF,?CKD, calciphylaxis (diagnosed in February 2018 after being admitted for antiphospholipid syndrome). Patient has been unable to obtain outpatient coverage for STS despite appeal made by dermatology and is now admitted for worsening pain from LLE ulceration. Currently on IV sodium thiosulfate 25 g , , Mon. Pamidronate started on 06/28/18- stopped due to ?allergic reaction (tingling in toes, no respiratory distress). Tolerated well on 06/29/18 with pre-medication with benadryl AND steroids. ? On examination of her LLE was a well well demarcated ulceration with surrounding induration. 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 Disease likely aggravated by the fact that patient is still on warfarin. ? Plan - Continue STS 25 g three times weekly - Continue IV pamidronate 30 mg weekly - Insurance denial letter reviewed- STS was denied as requested drug is produced by a nonparticipating traffic sign supervisor. - Patient states she talked to her insurance company and pamidronate will reportedly be covered. She is wondering if she can get infusions at [facility] oncology center in [place] vs [facility]. Discussed with Dr. Colin- will work on getting infusions set up at [facility] infusion center - Local oncologist found to oversee patient's infusions; still awaiting coverage for pamidronate - Please wash biopsy site from 06/26/18 on left leg daily with soap and water. Apply thin layer of vaseline, aquaphor, or cerave ointment (at bedside) then place bandage. Sutures will need to be removed in 12-14 days (approx 07/08/18). Patient can call [phone] to set up dermatology nursing visit for suture removal if desired. Renetta Moscoso MD Dermatology, PGY-2 July 09, 2018 PROCEDURE Observed: 07/09/2018 Status: COMPLETED Source: [place] 2:48 PM [facility] [place] REPOSITORY HNO ID: [id number] Author: Willie (Rn) JEFF Avery Service: Apheresis Author Type: Registered Nurse Type: Procedures Filed: 07/09/2018 4:02 PM Note Text: APHERESIS THERAPEUTIC PROCEDURE NOTE SERVICE DATE: 07/09/2018 SERVICE TIME: 13:49 TREATMENT #: 105. Pre-treatment labs drawn: No PLAN Next treatment- every two weeks, 07/23/2018 : 1990 Age: [age] year old Gender: female Patient identification confirmed patient, birthdate and MRN Apheresis Requested By: Hematology Diagnosis: CAPS Treatment Procedure: Plasmapheresis Protocol: N/A LABS Recent Labs 07/09/18 0504 07/08/18 0501 WBC -- 3.90 HB -- 8.8* HCT -- 28.4* PLT -- 114* INR 2.6* 2.4* BUN -- 14 CREAT -- 0.79 CA -- 8.2* INTERVAL HISTORY: Patient reports feeling okay. All questions answered. PRE-TREATMENT BP 106/56 Pulse 66 Temp 36.6 ?C (97.8 ?F) (Oral) Resp 18 Ht 160 cm (5' 3) Wt 109 kg (240 lb 4.8 oz) SpO2 100% BMI 42.57 kg/m? Treatment performed at: Unit/Bed- H080 009 Date: 07/09/2018 Catheter Site Dressing: Dry and intact. Venous access: left SC double lumen catheter - draw from the red lumen, venous return: left SC double lumen catheter - return into the blue lumen. PRE-MEDICATION diphenhydramine 50mg IV Time:14:11 and hydrocortisone 100mg IV Time:13:39 TREATMENT PARAMETER DATA Whole blood processed: 5813 ml Volume removed: 3337 ml Volume replaced: 5% Albumin 1000 ml, NSS 1000 ml and FFP 1052 ml ACD used: 581 ml Calcium gluconate 10% 1 gram in 250 ml NSS: 250 ml. started at 15:50 and stopped at 15:30 Extra fluids: none given Net fluid balance: 250 ml CaGlu + 31 ml POST-TREATMENT Vital signs: BP 109/57 HR 84 RR 18 TEMP 97.8 Labs Drawn: None At completion of treatment: red and blue Lumen flushed with 10 ml NSS and red and blue Lumen locked with 3 ml 4% sodium citrate Patient tolerated treatment well without complications: Yes Patient instructed to continue abundant oral fluids. Report given to unit nurse. Patient remains in hospital bed. Treatment Started by Apheresis Nurse: Willie Avery RN Treatment Completed by Apheresis Nurse: Willie Avery RN [facility] STAFF PHYSICIAN NOTE OF PERSONAL INVOLVEMENT IN CARE Ms. Cannon tolerated the treatment without any acute events. Her next plasma exchange treatment will be in 2 weeks. Will continue to coordinate with the referring services. I reviewed the patients labs, medications and allergies prior to proceeding with this therapeutic treatment and discussed the case and parameters with the apheresis nurse. I have reviewed this therapeutic progress note documented by the apheresis nurse. I personally participated in all pertinent aspects and fernandes components of the therapeutic treatment. I was present during the treatment. Signature: Lisseth Claudio MD July 09, 2018 3:48 PM Pager: [phone] PROGRESS Observed: 07/09/2018 Status: COMPLETED Source: [place] 6:50 AM [facility] REPOSITORY HNO ID: [id number] Author: Steve Crews Service: General Internal Medicine Author Type: Physician Type: Progress Notes Filed: 07/09/2018 5:19 PM Note Text: . VIPUL Terry INTERNAL MEDICINE PROGRESS NOTE Paloma Cannon [id number] SERVICE DATE: 07/09/2018 SERVICE TIME: 6:51 AM Subjective INTERVAL HPI: - MARILEE - PLEX to be rescheduled for Monday due to holiday MEDICATIONS: Current Facility-Administered Medications: acetaminophen 650 mg tab(s) (TYLENOL) 650 mg ORAL q 6 H PRN Gladys (Res) MD Flaco 650 mg at 07/08/18 0826 carvedilol 12.5 mg tab(s) (COREG) 12.5 mg ORAL BID bk Mays (Res) Natalie 12.5 mg at 07/08/18 1703 cetirizine 10 mg tab(s) (ZyrTEC) 10 mg ORAL BID Sanchez (Res) Natalie 10 mg at 07/08/18 210 diphenhydrAMINE 50 mg (BENADRYL) 50 mg ORAL q 6 H PRN Hilaria (Res) Abu-Haniyeh 50 mg at 07/02/18 0845 DULoxetine (CYMBALTA) cap(s) 90 mg 90 mg ORAL DAILY Camila (Res) MD Odin 90 mg at 07/08/18 0826 hydrocortisone sodium succinate (PF) 100 mg injection (Solu- CORTEF) 100 mg INTRAVENOUS q 6 H PRN Hilaria (Res) Abu-Haniyeh HYDROmorphone 2 mg tab(s) (DILAUDID) 2 mg ORAL q 12 H PRN Jorge (Res) Millicent 2 mg at 07/08/18 1128 lidocaine 5 % 1 Patch (LIDODERM) 1 Patch TRANSDERMAL DAILY Bolivar (Res) MD James 1 Patch at 07/06/18 0940 And lidocaine patch - REMOVE OTHER AT BEDTIME Bolivar (Res) MD James And lidocaine - VERIFY PATCH OTHER q 8 H Bolivar (Res) MD James losartan 25 mg tab(s) (COZAAR) 25 mg ORAL DAILY Gladys (Res) MD Flaco 25 mg at 07/08/18 0826 meperidine (PF) 25 mg injection (DEMEROL) 25 mg INTRAVENOUS q 6 H PRN Gladys (Res) MD Flaco miconazole 2 % 1 application topical powder (LOTRIMIN AF, DESENEX) 1 application TOPICAL BID Nevaeh (Res) Sirena 1 application at 07/08/18 2132 NaCl 0.9% 10 mL 10 mL INTRAVENOUS q 12 H Sanchez (Res) Natalie 10 mL at 07/08/18 210 NaCl 0.9% 2-10 mL 2-10 mL INTRAVENOUS q 12 H Sanchez (Res) Natalie 10 mL at 07/08/18 0830 NaCl 0.9% 20 mL 20 mL INTRAVENOUS PRN Sanchez (Res) Natalie 20 mL at 07/09/18 0456 NIFEdipine ER 60 mg tab(S) (PROCARDIA XL) 60 mg ORAL DAILY Sanchez (Res) Natalie 60 mg at 07/08/18 0825 ondansetron (PF) 4 mg injection (ZOFRAN) 4 mg INTRAVENOUS q 8 H PRN Hilaria (Res) Karlos 4 mg at 06/27/18 1758 pamidronate 30 mg in NaCl 0.9% 1,000 mL (AREDIA) 30 mg INTRAVENOUS q 1 WEEK Camila (Res) MD Odin Last Rate: 250 mL/hr at 07/06/18 1231 30 mg at 07/06/[address] 40 mg tab(s) (PROTONIX) 40 mg ORAL DAILY (6 AM) Sanchez SanchezResDevonte Estrada 40 mg at 07/09/18 0501 pregabalin 100 mg cap(s) (LYRICA) 100 mg ORAL DAILY Bolivar SanchezRes) MD James 100 mg at 07/08/18 0826 pregabalin 150 mg cap(s) (LYRICA) 150 mg ORAL AT BEDTIME Jorge (ResDevonte Ricks 150 mg at 07/08/18 210 pregabalin 150 mg cap(s) (LYRICA) 150 mg ORAL DAILY (4 PM) Bolivar SanchezResDevonte Roque MD 150 mg at 07/08/18 1702 sodium citrate 4% 3-6 mL catheter lock 3-6 mL INTRALUMINAL APHERESIS PRN Zahra Wallace 3 mL at 06/25/18 1105 sodium hypochlorite topical irrigation 0.25% (DAKINS HALF-STRENGTH) IRRIGATION DAILY Gladys (ResDevonte Sam MD sodium thiosulfate 25 g in D5W 250 mL 25 g INTRAVENOUS q 1800 Hilaria (Res) Karlos Last Rate: 250 mL/hr at 07/07/18 1722 25 g at 07/07/18 1722 warfarin 5 mg tab(s) (COUMADIN) 5 mg ORAL/FEEDING TUBE DAILY - WARFARIN Jorge SanchezResDevonte Ricks 5 mg at 07/08/18 1701 warfarin order for discharge OTHER PRN Sanchez SanchezResDevonte Estrada Objective PHYSICAL EXAM: BP 116/67 Pulse 85 Temp (Src) 98 (Oral) Resp 16 Ht 5' 3 (1.60m) Wt 240 lb 4.8 oz (109.0kg) SpO2 98% BMI 42.58 kg/(m2). General appearance: Well appearing, alert, in no acute distress, well-hydrated, well nourished. Skin: No fluctuance or erythema around the leg wound. Lungs: Lungs clear to auscultation. ?No wheezing, rhonchi, rales. Heart: RRR without murmur, gallop, or rubs. Abdomen: Normal abdominal exam, Abdomen soft, non-tender. Bowel sounds normal. Extremities: No deformities, edema, skin discoloration, clubbing or cyanosis. Good capillary refill. Peripheral pulses: Normal Lines, Drains, and Airways Line Central Line Single Lumen Tunneled Left Chest -- days Dialysis / Apheresis Double Lumen 03/17/18 1000 Admission to Hospital Tunneled Left Chest 113 days DATA: CBC: Recent Labs 07/08/18 0501 07/05/18 0536 WBC 3.90 4.61 HB 8.8* 8.4* HCT 28.4* 26.6* PLT 114* 118* MCV 91.0 89.3 RDWCV 15.6* 15.4* COAG: Recent Labs 07/09/18 0504 07/08/18 0501 07/07/18 0418 07/06/18 0537 07/05/18 0536 07/04/18 0543 07/03/18 0337 INR 2.6* 2.4* 2.3* 2.2* 2.3* 2.5* 3.3* BMP: Recent Labs 07/08/18 0501 07/05/18 0536 GLUC 98 98 NA 139 139 K 3.9 4.1 CHLOR 105 106* CO2 22 25 ANION 12 8* BUN 14 22* CREAT 0.79 0.96 CHEM: Recent Labs 07/08/18 0501 07/05/18 0536 CA 8.2* 7.7* IMAGING: US DVT UPPER LT Final Result IMPRESSION: NEGATIVE STUDY FOR ACUTE DVT IN THE LEFT UPPER EXTREMITY. NEGATIVE STUDY FOR SUPERFICIAL THROMBOPHLEBITIS IN THE LEFT UPPER EXTREMITY NONOCCLUSIVE THROMBUS ALONG THE WALL THE MEDIAL RIGHT SUBCLAVIAN VEIN, PARTIALLY VISUALIZED, WHICH APPEARS CHRONIC. COMMUNICATION: Communicated with: Bolivar Roque on 07/02/2018 at 16:50. Glass Edger: MURTAZA Transcribe Date/Time: Jul 02 2018 4:29P Dictated by : JANNETH CASTAÑEDA MD This examination was interpreted and the report reviewed and electronically signed by: JANNETH CASTAÑEDA MD on Jul 02 2018 4:50PM EST CT ABD/PEL WO IVCON Final Result IMPRESSION: CONTINUED INTERVAL DECREASE IN SIZE OF PREVIOUSLY PRESENT LEFT RETROPERITONEAL HEMATOMA. NO EVIDENCE OF NEW INTERVAL HEMORRHAGE. NO OTHER SIGNIFICANT INTERVAL CHANGE. 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 # Calciphylaxis -Known wound related to calciphylaxis (slightly worse) -Unable to get sodium thiosulfate as an outpatient -Worsening pain Plan -Sodium thiosulfate ?- 25g in 250ml D5W infused over 1 hour ?- Monitor Vital signs during infusion given (low) risk of hypotension ?- BMP once per week to check for anion gap metabolic acidosis ?PRN during infusion:?- Acetaminophen 650mg PRN as needed for headache (will premedicate with acetaminophen if headaches are frequent) ?- Diphenhydramine 50 mg IV PRN hypotension, shortness of breath or bronchospasm ?- Meperidine 25 mg Injection PRN for rigors ?- Stop infusion if either hypotension or rigors occur. Solu-cortef 100mg IV and normal saline as needed for hypotension ?- Ondansetron 8 mg IV PRN Nausea/Vomiting (will premedicate with ondansetron if nausea/vomiting frequent) -Pain management recs: weaning Dilaudid and methadone -Dermatology consulted, punch biopsy obtained - sutures will need to be removed 07/09 -IV pamidronate 30 mg q Monday -Wound care per dermatology: washing with saline wound wash, packing with daikin soaked gauze, gauze and tape - PLEX 07/11/18 # Antiphospholipid antibody syndrome # Chronic pain -Continue home coumadin, daily INR ?-Typically takes 5 mg warfarin daily, except 7.5 mg on the day of PLEX and 1-2 days following - APAP 650mg PO 4x/day PRN - Cymbalta to 90mg PO qAM - Weaning pain Rx ? #HFrEF #HTN -Continue home Procardia, Coreg, Cozaar ? #Hx seasonal allergies #Hx of Hives -Continue home certirizine -Diphenhydramine prn ? #GERD -Continue home pantoprazole Bolivar Roque MD PGY-1 Neurology 07/09/18 6:51 AM ATTENDING PHYSICIAN: Patient seen and evaluated today Fernandes elements of history and physical examination of the patient were confirmed. The assessment and plan were formulated and discussed with the team on Rounds. I reviewed the resident's note, examined the patient and agree with the documented findings and plan of care. Calciphylaxis, Antiphospholipid Syndrome Home in 1-2 days when Na Thiosulfate arranged for out-patient infusion Family very concerned about fluid overload, so starting torsemide (home meds), CXR and weigh daily, fluid restriction 1400 ml. Signed: Steve Crews MD Attending, Associate Staff Department of Hospital Medicine [facility] Date of Service : July 09, 2018 ?? ALLIED HEALTH Observed: 06/27/2018 Status: COMPLETED Source: [place] 3:15 PM [facility] REPOSITORY O ID: [id number] Author: Sumaya (Therapist) Rose Service: Art Therapy Author Type: Therapist Type: Allied Health Filed: 06/27/2018 3:33 PM Note Text: ART THERAPY NOTE SERVICE DATE: 06/27/2018 SERVICE TIME: 2:08PM Referred By: Fellow Reason for Referral: Depressed Mood, Relaxation Session Type: Initial Time Spent (minutes): 50 Goals: Diversion From Pain;Reduce Anxiety;Other: See Comment (Build Rapport) Interventions: Art Based Therapy (In Memory of Pin) Response Before After Mood 2/4 1/4 Anxiety 6/10 5/10 Pain 7/10 5/10 Scale: 0 = No pain/anxiety 10 = Worst possible pain/anxiety Response: Media Used: Beads Patient's Verbal Response: Positive Family Present: No Outcome: Goals: Met Goals Met: Diversion From Pain;Reduce Anxiety;Other: See Comment Follow Up: Will Follow Up as Able COMMENTS: Consult was received and appreciated. Pt was alert and awake when student entered room to introduce self and services, which pt identified having experienced during a previous admission. Student engaged pt in discussion regarding this experience and others she has had with art to build rapport. Pt discussed completing an alcohol ink tile and stated I enjoyed the experimentation. Student discussed various therapeutic art intervention options for further experimentation and pt decided to create a pin in memory of my best friend growing up. Pt reminisced about memories shared with her friend and made creative choices reflecting these memories. Pt engaged fully with the media and reflected on similarities to other activities she enjoys when not in the hospital (fishing, cooking, crafting). Pt's affect was cheerful throughout session, as evidenced by tone and facial expressions. Pt experienced a reduction in anxiety through refocusing attention and diversion from pain, as evidenced by verbal responses and decrease in psychomotor agitation. Pt expressed gratitude for session and expressed no further needs at this time. SIGNATURE: Sumaya Rose, Art Therapy Reeling And Tubing Machine Operator PATIENT NAME: Paloma Cannon DATE: June 27, 2018 TIME: 3:15 PM PAGER/CONTACT #: [phone] EMERGENCY DEPARTMENT Observed: 06/20/2018 Status: F Source: [place] SUMMARY 12:38 AM [facility] REPOSITORY [facility] Medical Records Department [address] [place] [id number] Emergency Department Summary 06/19/18 2225 MR#: [id number] Acct: [id number] Name: PALOMA CANNON Rep #: [id number] : 1990 28 From: Malaika Chinchilla MD [...] any opiate medication for home due to [place] state laws. However patient's pain was treated [...] to calciphylaxis This note was generated with Indeed dictation software. It may contain incorrect words, [...] problems, contact your Primary Care Provider. Call [facility] ([phone]) or report to the closest Emergency Room. Call 911 if necessary. 06/20/18 0038 <Electronically signed by Malaika Chinchilla MD> Date Malaika Chinchilla MD Cosigner Signature (If Indicated): Date CC: Peyton Rogers MD DISCHARGE INSTRUCTION Observed: 06/20/2018 Status: F Source: [place] 12:38 AM [facility] REPOSITORY [facility] Medical Records Department [address] [place] [address] Discharge Instruction 06/19/18 2323 MR#: [id number] Acct: [id number] Name: PALOMA CANNON Rep #: [id number] : 1990 28 From: Malaika Chinchilla MD [...] your Primary Care Provider. Call [facility] ([phone]) or report to the closest Emergency Room. Call 911 if necessary. 06/20/18 0038 <Electronically signed by Malaika Chinchilla MD> Date Malaika Chinchilla MD Cosigner Signature (If Indicated): Date CC: Peyton Rogers MD PROTHROMBIN TIME W/INR Collected: 06/19/2018 Status: F Source: [place] 10:44 PM [facility] REPOSITORY TYPE CODE TESTS RESULT OUT OF RANGE REFERENCE UNITS LAB L300.4150 11.7-14.9 SECONDS High PROTIME 22.2 LAB L300.4200 Normal INR 1.9 Performed By: #### [id number] #### [facility] [address] [place], [address] PROTHROMBIN TIME W/INR Collected: 06/18/2018 Status: F Source: [place] 8:23 AM [facility] REPOSITORY TYPE CODE TESTS RESULT OUT OF RANGE REFERENCE UNITS LAB L300.4150 11.7-14.9 SECONDS High PROTIME 19.2 LAB L300.4200 Normal INR 1.6 Performed By: #### [id number] #### [facility] [address] [place], [address] PROTHROMBIN TIME W/INR Collected: 06/15/2018 Status: F Source: [place] 8:49 AM [facility] REPOSITORY TYPE CODE TESTS RESULT OUT OF RANGE REFERENCE UNITS LAB L300.4150 11.7-14.9 SECONDS High PROTIME 20.9 LAB L300.4200 Normal INR 1.8 Performed By: #### [id number] #### [facility] [address] [facility] [address] [place], [place], [address] EMERGENCY DEPARTMENT Observed: 06/10/2018 Status: F Source: [place] SUMMARY 3:45 AM [facility] REPOSITORY [facility] Medical Records Department [address] [place] [address] [place] [address] Emergency Department Summary 06/10/18 0143 MR#: [id number] Acct: [id number] Name: PALOMA CANNON Rep #: [id number] : 1990 28 From: Wilrfed Lucas MD PCP: Peyton Rogers MD Status: [...] she is due for another treatment at [facility] in just over 24 hours from now. She presents now because her oxycodone has not really the chronic pain that she has in her back that she associates with the retroperitoneal hematoma. She states in [place], they have told her that it is [...] She states when she was transferred to [place] several days ago, they evaluated her with [...] your Primary Care Provider. Call [facility] ([phone]) or report to the closest Emergency Room. Call 911 if necessary. 06/10/18 0345 <Electronically signed by Wilfred Lucas MD> Date Wilfred Lucas MD Cosigner Signature (If Indicated): Date CC: Peyton Rogers MD CBC-COMPLETE BLOOD CNT Collected: 06/10/2018 Status: F Source: [place] DIFF 2:00 AM [facility] REPOSITORY TYPE CODE TESTS RESULT OUT [...] MPV 10.1 Performed By: #### L100.0500 #### [facility] [address] [place], [address] PROTHROMBIN TIME W/INR Collected: 06/10/2018 Status: F Source: [place] 2:00 AM [facility] REPOSITORY TYPE CODE TESTS RESULT OUT OF RANGE REFERENCE UNITS LAB L300.4150 11.7-14.9 SECONDS High PROTIME 26.6 LAB L300.4200 Normal INR 2.4 Performed By: #### L300.3900 #### [facility] [address] [place], [address] BASIC METABOLIC Collected: 06/10/2018 Status: F Source: [place] PROFILE (BMP) 2:00 AM [facility] REPOSITORY TYPE CODE TESTS RESULT OUT [...] GAP 6 Performed By: #### L500.2500 #### [facility] [address] [place], [address] ABDOMEN/PELVIS WITHOUT Observed: 06/10/2018 Status: F Source: [place] CONT 1:44 AM [facility] REPOSITORY [facility] Imaging Services [address] [place] [address] Abdomen/Pelvis without Cont MR#: [id number] Acct: [id number] Name: PALOMA CANNON Rep #: [id number] : 1990 F 28 From: Zhou Lowe MD PCP: Peyton Rogers MD Status: REG ER Study: Abdomen/Pelvis without Cont Date of Exam: 06/10/18 Exam# [id number] Ordering Dr: Wilfred Lucas MD HISTORY: LT SIDED ABDOMEN PAIN WITH SHOCKS DOWN HER LEGS,PT HAS REOCCURING RETROPERITONEAL HEMATOMA,[facility]CLOTTING DISORDER-ANTIPHOSPHOLIPID ANTIBODY SYNDROMESURGERY:CHOLECYSTECTOMY,ABDOMINAL STENT TECHNIQUE: Helically [...] CC: WILFRED LUCAS MD; Peyton Rogers MD Glass Edger: Signed PROTHROMBIN TIME W/INR Collected: 06/08/2018 Status: F Source: [place] 10:30 AM [facility] REPOSITORY TYPE CODE TESTS RESULT OUT OF RANGE REFERENCE UNITS LAB L300.4150 11.7-14.9 SECONDS High PROTIME 22.2 LAB L300.4200 Normal INR 1.9 Performed By: #### L300.3900 #### [facility] [address] [place], [address] EMERGENCY DEPARTMENT Observed: 06/04/2018 Status: F Source: [place] SUMMARY 11:12 PM [facility] REPOSITORY [facility] Medical Records Department [address] [place] [address] Emergency Department Summary 06/04/182051 MR#: [id number] Acct: [id number] Name: PALOMA CANNON Rep #: [id number] : 1990 28 From: Fany Littlejohn MD PCP: Peyton Rogers MD Status: REG ER - ER Visit Summary Date of Service: 06/04/18 Chief Complaint: Left flank pain History of Present Illness: The patient is a 28 F with history of antiphospholipid antibody who is on Coumadin and gets plasmapheresis through [facility] presents to the emergency department with left [...] was accepted. She will be transferred to [facility] for definitive care of her recurrent retroperitoneal hematoma. Treatment Plan: [] Disposition: Transferred Impression: 1. Recurrent left retroperitoneal hematoma 2. History of antiphospholipid antibody syndrome This note was generated with Indeed dictation software. It may contain incorrect words, [...] problems, contact your Primary Care Provider. Call [facility] ([phone]) or report to the closest Emergency Room. Call 911 if necessary. 06/04/18 2312 <Electronically signed by Fany Littlejohn MD> Date Fany Littlejohn MD Cosigner Signature (If Indicated): Date CC: Peyton Rogers MD URINALYSIS, COMPLETE Collected: 06/04/2018 Status: F Source: [place] 10:15 PM [facility] REPOSITORY Order Comment: Order Date: 06/04/18 [...] URINE SEEN Performed By: #### L400.0001 #### [facility] [place], [address] COMPREHENSIVE METABOLIC Collected: 06/04/2018 Status: F Source: [place] 8:59 PM [facility] REPOSITORY TYPE CODE TESTS RESULT OUT [...] 5-15 Normal GAP 5 Performed By: #### L500.4056 #### [facility] [place], [address] LACTIC ACID Collected: 06/04/2018 Status: F Source: [place] 8:59 PM [facility] REPOSITORY Order Comment: Yes/No query for Sepsis Lactate Rule Y TYPE CODE TESTS RESULT OUT OF RANGE REFERENCE UNITS LAB L503.6005 0.4-2.0 mmol/L Normal LACTIC ACID 1.3 Performed By: #### L503.6005 #### [facility] [address] [place], [address] CBC W/DIFF, AUTOMATED Collected: 06/04/2018 Status: F Source: [place] 8:59 PM [facility] REPOSITORY TYPE CODE TESTS RESULT OUT [...] LYMPHOPENIA NOTED Performed By: #### L100.0100 #### [facility] [address] [place], [address] PROTHROMBIN TIME W/INR Collected: 06/04/2018 Status: F Source: [place] 8:59 PM [facility] REPOSITORY TYPE CODE TESTS RESULT OUT OF RANGE REFERENCE UNITS LAB L300.4150 11.7-14.9 SECONDS High PROTIME 18.9 LAB L300.4200 Normal INR 1.6 Performed By: #### L300.3900, L300.4310 #### [facility] [address] [place], [address] PARTIAL THROMBOPLAST Collected: 06/04/2018 Status: F Source: [place] TIME 8:59 PM [facility] REPOSITORY TYPE CODE TESTS RESULT OUT OF REFERENCE UNITS RANGE LAB L300.4310 24.1-36.2 Seconds High PTT 51.0 Performed By: #### L300.3900, L300.4310 #### [facility] [address] [place], [address] ABDOMEN/PELVIS WITHOUT Observed: 06/04/2018 Status: F Source: [place] CONT 8:51 PM [facility] REPOSITORY [facility] Imaging Services [address] [place] [address] Abdomen/Pelvis without Cont MR#: [id number] Acct: [id number] Name: PALOMA CANNON Rep #: [id number] : 1990 F 28 From: Hood Rice DO PCP: Peyton Rogers MD Status: REG ER Study: Abdomen/Pelvis without Cont Date of Exam: 06/04/18 Exam# [id number] Ordering Dr: Fany Littlejohn MD STUDY: CT [...] Hood Rice DO at 22:01 EST Tel [phone], Service support , CC: Peyton Rogers MD; Fany Littlejohn MD Glass Edger: Signed PROTHROMBIN TIME W/INR Collected: 06/04/2018 Status: F Source: [place] 9:01 AM [facility] REPOSITORY TYPE CODE TESTS RESULT OUT OF RANGE REFERENCE UNITS LAB L300.4150 11.7-14.9 SECONDS High PROTIME 19.3 LAB L300.4200 Normal INR 1.6 Performed By: #### L300.3900 #### [facility] [address] [place], [address] PROTHROMBIN TIME W/INR Collected: 05/11/2018 Status: F Source: [place] 8:01 AM [facility] REPOSITORY TYPE CODE TESTS RESULT OUT OF RANGE REFERENCE UNITS LAB L300.4150 11.7-14.9 SECONDS High PROTIME 31.2 LAB L300.4200 Normal INR 3.0 Performed By: #### L300.3900 #### [facility] [address] [place], [address] PROTHROMBIN TIME W/INR Collected: 05/04/2018 Status: F Source: [place] 8:01 AM [facility] REPOSITORY TYPE CODE TESTS RESULT OUT OF RANGE REFERENCE UNITS LAB L300.4150 11.7-14.9 SECONDS High PROTIME 21.1 LAB L300.4200 Normal INR 1.8 Performed By: #### L300.3900 #### [facility] [address] [place], [address] EMERGENCY DEPARTMENT Observed: 04/29/2018 Status: F Source: [place] SUMMARY 5:06 AM [facility] Medical Records Department [address] [place] [address] Emergency Department Summary 04/24/18 0332 MR#: [id number] Acct: [id number] Name: PALOMA CANNON Rep #: [id number] : 1990 28 From: Wilfred Lucas MD [...] for which she gets regular plasmapheresis at [facility], has a problem with bleeding and clotting, [...] is admitted, it is almost always at [facility] because that is where all of her [...] plan will be to discuss with her public health outreach worker at [facility], Dr. Andujar. She could possibly be discharged with close outpatient follow-up. We do carry bivalirudin at this hospital. The patient states she will likely prefer to be admitted at [facility] if she needs admission, since all of [...] problems, contact your Primary Care Provider. Call [facility] ([phone]) or report to the closest Emergency Room. Call 911 if necessary. 04/29/18 6037 <Electronically signed by Wilfred Lucas MD> Date Wilfred Lucas MD Cosigner Signature (If Indicated): Date CC: Peyton Rogers MD PROTHROMBIN TIME W/INR Collected: 04/27/2018 Status: F Source: [place] 7:53 AM [facility] REPOSITORY Order Comment: Comments: ORDERED BY [facility], FAX [phone] TYPE CODE TESTS RESULT OUT OF RANGE REFERENCE UNITS LAB L300.4150 11.7-14.9 SECONDS High PROTIME 19.9 LAB L300.4200 Normal INR 1.7 Performed By: #### L300.3900 #### [facility] [address] [place], [address] VENOUS DUPLEX LOWER Observed: 04/24/2018 Status: F Source: [place] EXTREMITY 5:30 PM [facility] REPOSITORY [facility] Cardiovascular Services [address] [place] [address] Venous Duplex US, Unilateral 04/24/18 0802 MR#: [id number] Acct: [id number] Name: PALOMA CANNON Rep #: [id number] : 1990 28 From: Ros Nam MD [...] Physician: Magdalena Lewis Performed By: Giovanni Heaton RVGiacomo 04/24/181728 Date Ros Nam MD CC: WILFRED LUCAS MD; Peyton Rogers MD Date Dictated: 04/24/18801 Date Transcribed: 04/24/181728 Glass Edger: Signed DISCHARGE INSTRUCTION Observed: 04/24/2018 Status: F Source: [place] 4:23 PM [facility] REPOSITORY [facility] Medical Records Department [address] [facility] [place] [address] Discharge Instruction 04/24/18 0934 MR#: [id number] Acct: [id number] Name: PALOMA CANNON Rep #: [id number] : 1990 28 From: Ignacio Rider MD [...] your Primary Care Provider. Call [facility] ([phone]) or report to the closest Emergency Room. Call 911 if necessary. 04/24/18 1623 <Electronically signed by Ignacio Rider MD> Date Ignacio Rider MD Cosigner Signature (If Indicated): Date CC: Peyton Rogers MD EMERGENCY DEPARTMENT Observed: 04/24/2018 Status: F Source: [place] SUMMARY 4:23 PM [facility] REPOSITORY [facility] Medical Records Department [address] [place] [address] Emergency Department Summary 04/24/18 0937 MR#: [id number] Acct: [id number] Name: PALOMA CANNON Rep #: [id number] : 1990 28 From: Ignacio Rider MD [...] Ly, the nurse for Dr. Andujar her public health outreach worker. She asked that we discharge her with prescription for 20 Percocet and have her see her public health outreach worker in 6 days when she receives her plasmapheresis. She reviewed the notes and sees that she is Joey spoken with someone about how to change her Coumadin dosing. Return to the emergency department for any worsening symptoms. Disposition: To home in improved and stable condition. Impression: 1. Left leg pain. 2. Subtherapeutic INR. 3. History of antiphospholipid antibody. This note was generated with Indeed dictation software. It may contain incorrect words, [...] your Primary Care Provider. Call [facility] ([phone]) or report to the closest Emergency Room. Call 911 if necessary. 04/24/18 1623 <Electronically signed by Ignacio Rider MD> Date Ignacio Rider MD Cosigner Signature (If Indicated): Date CC: Peyton Rogers MD CBC W/DIFF, AUTOMATED Collected: 04/24/2018 Status: F Source: [place] 3:40 AM [facility] REPOSITORY TYPE CODE TESTS RESULT OUT [...] Lymph 0.62 Performed By: #### L100.0100 #### [facility] [address] [place], [address] BASIC METABOLIC Collected: 04/24/2018 Status: F Source: [place] PROFILE ([facility]) 3:40 AM [facility] REPOSITORY TYPE CODE TESTS RESULT OUT [...] GAP 8 Performed By: #### L500.2500 #### [facility] [address] [place], [address] PROTHROMBIN TIME W/INR Collected: 04/23/2018 Status: F Source: [place] 8:02 AM [facility] REPOSITORY TYPE CODE TESTS RESULT OUT OF RANGE REFERENCE UNITS LAB L300.4150 11.7-14.9 SECONDS High PROTIME 20.4 LAB L300.4200 Normal INR 1.7 Performed By: #### L300.3900 #### [facility] [address] [place] [address], [address] PROTHROMBIN TIME W/INR Collected: 04/20/2018 Status: F Source: [place] 8:06 AM [facility] REPOSITORY TYPE CODE TESTS RESULT OUT OF RANGE REFERENCE UNITS LAB L300.4150 11.7-14.9 SECONDS High PROTIME 24.1 LAB L300.4200 Normal INR 2.2 Performed By: #### L300.3900 #### [facility] [address] [place], [place], [address] PROTHROMBIN TIME W/INR Collected: 04/12/2018 Status: F Source: [place] 8:07 AM [facility] REPOSITORY TYPE CODE TESTS RESULT OUT OF RANGE REFERENCE UNITS LAB L300.4150 11.7-14.9 SECONDS High PROTIME 23.5 LAB L300.4200 Normal INR 2.1 Performed By: #### L300.3900 #### [facility] [address] [place], [address] PROTHROMBIN TIME W/INR Collected: 04/09/2018 Status: F Source: [place] 8:30 AM [facility] REPOSITORY TYPE CODE TESTS RESULT OUT OF RANGE REFERENCE UNITS LAB L300.4150 11.7-14.9 SECONDS High PROTIME 18.5 LAB L300.4200 Normal INR 1.5 Performed By: #### L300.3900 #### [facility] [address] [place], [address] PROTHROMBIN TIME W/INR Collected: 04/05/2018 Status: F Source: [place] 8:13 AM [facility] REPOSITORY TYPE CODE TESTS RESULT OUT OF RANGE REFERENCE UNITS LAB L300.4150 11.7-14.9 SECONDS High PROTIME 20.3 LAB L300.4200 Normal INR 1.7 Performed By: #### L300.3900 #### [facility] [place], [address] PROTHROMBIN TIME W/INR Collected: 01/19/2018 Status: F Source: [place] 8:03 AM [facility] REPOSITORY TYPE CODE TESTS RESULT OUT OF REFERENCE UNITS RANGE LAB L300.4150 11.7-14.9 SECONDS High PROTIME 39.9 LAB L300.4200 High alert INR 4.1 Result Comment: CRITICAL VALUE VERIFIED. CALLED TO MAGDALENA LEWIS [facility] 01/19/18 0838 Zhou Nava. RESULTS READ BACK BY SAME. Performed By: #### L300.3900 #### [facility] [address] [place], [address] PROTHROMBIN TIME W/INR Collected: 01/12/2018 Status: F Source: [place] 8:05 AM [facility] REPOSITORY TYPE CODE TESTS RESULT OUT OF RANGE REFERENCE UNITS LAB L300.4150 11.7-14.9 SECONDS High PROTIME 24.7 LAB L300.4200 Normal INR 2.2 Performed By: #### L300.3900 #### [facility] [address] [place], [address] PROTHROMBIN TIME W/INR Collected: 01/05/2018 Status: F Source: [place] 8:20 AM [facility] REPOSITORY TYPE CODE TESTS RESULT OUT OF RANGE REFERENCE UNITS LAB L300.4150 11.7-14.9 SECONDS High PROTIME 34.6 LAB L300.4200 Normal INR 3.4 Performed By: #### L300.3900 #### [facility] [address] [place], [place], [address] PROTHROMBIN TIME W/INR Collected: 01/02/2018 Status: F Source: [place] 7:55 AM [facility] REPOSITORY TYPE CODE TESTS RESULT OUT OF RANGE REFERENCE UNITS LAB L300.4150 11.7-14.9 SECONDS High PROTIME 27.8 LAB L300.4200 Normal INR 2.6 Performed By: #### L300.3900 #### [facility] [place], [address] PROTHROMBIN TIME W/INR Collected: 12/29/2017 Status: F Source: [place] 8:10 AM [facility] REPOSITORY TYPE CODE TESTS RESULT OUT OF RANGE REFERENCE UNITS LAB L300.4150 11.7-14.9 SECONDS High PROTIME 18.0 LAB L300.4200 Normal INR 1.5 Performed By: #### L300.3900 #### [facility] [place], [address] PROTHROMBIN TIME W/INR Collected: 12/22/2017 Status: F Source: [place] 8:15 AM [facility] REPOSITORY TYPE CODE TESTS RESULT OUT OF REFERENCE UNITS RANGE LAB L300.4150 11.7-14.9 SECONDS High PROTIME 36.7 LAB L300.4200 High alert INR 3.7 Result Comment: CRITICAL VALUE VERIFIED. CALLED TO BEATRIZ CALLES 12/22/17 0858 Zhou Farias RESULTS READ BACK BY SAME. Performed By: #### L300.3900 #### [facility] [address] [place], [address] PROTHROMBIN TIME W/INR Collected: 12/19/2017 Status: F Source: [place] 8:12 AM [facility] REPOSITORY TYPE CODE TESTS RESULT OUT OF REFERENCE UNITS RANGE LAB L300.4150 11.7-14.9 SECONDS High PROTIME 45.0 LAB L300.4200 High alert INR 4.8 Result Comment: CRITICAL VALUE VERIFIED. CALLED TO INDRA AT [facility] 12/19/17 0835 Aline Villalba. RESULTS READ BACK BY SAME . Performed By: #### L300.3900 #### [facility] [address] [place], [address] CASE MANAGEM Observed: 11/27/2017 Status: COMPLETED Source: [place] 12:42 PM [facility] REPOSITORY HNO ID: [id number] Author: Cherrie (Asst) Fadia Service: Care Management Author Type: [facility] [employer] [facility] Type: Care Mgt Progress Note Filed: 11/27/2017 12:43 PM Note Text: CARE MANAGEMENT PROGRESS NOTE SERVICE DATE: 11/27/2017 SERVICE TIME: 12:03 LOS: 33 days IM letter given to patient on 11/27/17. SIGNATURE: Asst Xiomara PATIENT NAME: Paloma Cannon DATE: November 27, 2017 TIME: 12:42 PM PAGER/CONTACT #: [phone] THERAPY NT Observed: 11/27/2017 Status: COMPLETED Source: [place] 10:41 AM [facility] REPOSITORY HNO ID: [id number] Author: Tamiko SanchezPt) Adelaida Service: Physical Therapy Author Type: Physical Therapist Type: Therapy (PT/OT/Speech/Resp) Filed: 11/27/2017 10:46 AM Note Text: Physical Therapy Wound/Lymph Treatment SERVICE DATE: 11/27/2017 SERVICE TIME: 0949 to 1015 ROOM: [place] [address] Disposition: Acute Rehab Recommended Discharge Disposition Comments: [...] Patient TREATMENT INTERVENTIONS: Interventions Provided: Manual Therapy (81514) Manual Therapy (51461) Treatment Minutes: 25 2 units Skilled Intervention: [...] 27, 2017 TIME: 10:41 AM PAGER/CONTACT #: [phone] CONSULT PROG Observed: 11/27/2017 Status: COMPLETED Source: [place] 10:33 AM [facility] [place] REPOSITORY HNO ID: [id number] Author: Magdalena (Security Tester) Rodney Molina Service: Vascular Medicine Author Type: Nurse [...] mg ORAL/FEEDING TUBE q 4 H PRN cafzphzukfQHIUZ-fudbzv-pwdoxszjy 10 mL oral liquid (BMX 1:1:1) 10 [...] not recommend imaging as it would not foreign exchange student coordinator. Okay from standpoint to proceed w/ [...] repeat aPTT tomorrow morning. Please call [facility] [phone] if not within therapeutic range Bival and [...] 27, 2017 TIME: 10:33 AM PAGER/CONTACT #: [phone] . URINALYSIS WITH Collected: 11/27/2017 Status: F Source: [facility] 9:39 AM [facility] REPOSITORY TYPE CODE TESTS RESULT OUT OF RANGE REFERENCE UNITS LAB UCOL Yellow Color Yellow LAB [facility] Clear Clarity Abnormal Cloudy Alert LAB UGLUC Negative mg/dL Glucose, Urine Negative LAB UBIL Negative Bilirubin, Urine Negative LAB UKET Negative Ketones, Urine Negative LAB [facility] 1.005-1.030 Specific [place], Ur 1.018 LAB UHGB Negative Abnormal Hemoglobin/Blood, [...] Epithelial Cells Performed By: #### UAWMIC #### [facility] [address] [place], [place] [address] XR CHEST 1V FRONTAL Observed: 11/27/2017 Status: F Source: [facility] 7:52 AM [facility] REPOSITORY * * *Final Report* [...] Cardiomediastinal silhouette: Stable cardiomediastinal silhouette. Other: . Glass Edger: [email or web address] Transcribe Date/Time: Nov 27 2017 10:03A Dictated by : STELLA COSME MD This examination was interpreted and the report reviewed and electronically signed by: STELLA COSME MD on Nov 27 2017 10:04AM EST [id number] Collected: 11/27/2017 Status: F Source: [place] 5:16 AM [facility] REPOSITORY TYPE CODE TESTS RESULT OUT [...] Performed By: #### CBC, PT, PTT #### [facility] [address] [place], [place] [address] PROTIME Collected: 11/27/2017 Status: F Source: [place] 5:16 AM [facility] REPOSITORY TYPE CODE TESTS RESULT OUT OF RANGE REFERENCE UNITS LAB PSEC 9.7-13.0 sec High PT Sec 14.9 LAB INR 0.9-1.3 High PT INR 1.5 Result Comment: Vitamin K Antagonist (VKA) Therapeutic Range: INR 2 to 3 (Target INR of 2.5) Note: For patients treated with VKA drugs, such as warfarin, the [place] [employer] 2012 Guideline recommends [...] Chest 2012, 141:7S-47S Diogenes RA, et al. [facility] 2017, 70: 252-289 Performed By: #### CBC, PT, PTT #### [facility] [place] [address] APTT Collected: 11/27/2017 Status: F Source: [place] 5:16 AM [facility] REPOSITORY TYPE CODE TESTS RESULT OUT [...] laboratory APTT reagent in use throughout the [facility]. Performed By: #### CBC, PT, PTT #### [facility] [employer] [address] [place], [place] [address] TYPE AND SCREEN Collected: 11/27/2017 Status: F Source: [place] 5:16 [facility] REPOSITORY TYPE CODE TESTS RESULT OUT OF REFERENCE UNITS RANGE LAB %ABR B ABO/RH(D) POSITIVE LAB % Antibody POS Screen Performed By: #### TSCR #### [facility] [employer] [facility] [address] [place], [place] [address] LACTATE Collected: 11/26/2017 Status: F Source: [place] 10:52 PM [facility] REPOSITORY TYPE CODE TESTS RESULT OUT OF REFERENCE UNITS RANGE LAB LACT 0.5-2.2 mmol/L Lactate 1.6 Performed By: #### LACT #### [facility] [address] [place], [place] [address] LACTATE Collected: 11/26/2017 Status: F Source: [place] 7:26 PM [facility] REPOSITORY TYPE CODE TESTS RESULT OUT OF REFERENCE UNITS RANGE LAB LACT 0.5-2.2 mmol/L Unable Lactate to assay. Specimen improperly collected/handle d. Result Comment: Specimen collected in wrong container type. TEST REQUIRES A MARCUS TUBE. SPECIMEN WAS RECEIVED IN A GREEN SODIUM HEPARIN TUBE. NOTIFIED JEFF BAZZI OF THE NEED FOR A NEW ORDER AND RECOLLECTION. [facility] [phone] Account Credited Performed By: #### LACT #### [place] [id number] [place], [place] [address] XR CHEST 1V FRONTAL Observed: 11/26/2017 Status: F Source: [place] 6:13 PM [facility] REPOSITORY * * *Final Report* * [...] silhouette: Stable prominent/mildly enlarged cardiomediastinal silhouette. Other: Glass Edger: MURTAZA Transcribe Date/Time: Nov 26 2017 6:31P Dictated by : CARLA TORRES MD This examination was interpreted and the report reviewed and electronically signed by: CARLA TORRES MD on Nov 26 2017 6:33PM EST [id number] SEPSIS LACTATE Collected: 11/26/2017 Status: F Source: [place] 4:10 PM [facility] REPOSITORY TYPE CODE TESTS RESULT OUT OF REFERENCE UNITS RANGE LAB SLACTT <2.1 mmol/L High Sepsis 2.6 Lactate LAB VBGCOM Blood Gas Urgent Comm, Rajeev value Result Comment: SLACT LAB VCBWHO Notified Whom, Rajeev Called to and read back by Result Comment: AMARILYS GUEVARA LAB VCBDTE [id number] Notify Date, Rajeev LAB VCBTME [id number] Notify Time, Rajeev Performed By: #### SLACT #### [facility] [address], [place] [address] HEMOGLOBIN Collected: 11/26/2017 Status: F Source: [place] 4:04 PM [facility] REPOSITORY TYPE CODE TESTS RESULT OUT OF REFERENCE UNITS RANGE LAB HGB 11.5-15.5 g/dL Low Hemoglobin 11.1 Performed By: #### HGB #### [facility] [address], [place] [address] HEMOGLOBIN Collected: 11/26/2017 Status: F Source: [place] 3:34 PM [facility] REPOSITORY TYPE CODE TESTS RESULT OUT OF REFERENCE UNITS RANGE LAB HGB 11.5-15.5 g/dL Hemoglobin Unable to assay. Specimen improperly collected/handl ed. Result Comment: Specimen collected in wrong container type. TEST REQUIRES A LAVENDER TUBE. SPECIMEN WAS RECEIVED IN A DARK GREEN TUBE. NOTIFIED JEFF POLO OF THE ISSUE AND A NEED FOR A RECOLLECTION AND A NEW ORDER. [facility] [id number] Account Credited Performed By: #### HGB #### [facility] [address], [place] [address] NURSING PROG Observed: 11/26/2017 Status: COMPLETED Source: [place] 10:59 AM [facility] REPOSITORY HNO ID: [id number] Author: Edel Roman RN Service: Nursing Author Type: Registered Nurse [...] WO IVCON Observed: 11/26/2017 Status: F Source: [place] 10:56 AM [facility] REPOSITORY * * *Final Report* * * DATE OF EXAM: Nov 26 2017 10:56AM [facility] [place] 0531 - CT ABD/PEL WO IVCON [...] effusion IMPRESSION: STABLE LARGE LEFT RETROPERITONEAL HEMATOMA Glass Edger: MURTAZA Transcribe Date/Time: Nov 26 2017 1:00P Dictated by : URSZULA WHARTON MD This examination was interpreted and the report reviewed and electronically signed by: URSZULA WHARTON MD on Nov 26 2017 1:06PM EST [id number] SEPSIS LACTATE Collected: 11/26/2017 Status: F Source: [place] 10:50 AM [facility] REPOSITORY TYPE CODE TESTS RESULT OUT OF REFERENCE UNITS RANGE LAB SLACTT <2.1 mmol/L High Sepsis 2.3 Lactate LAB VBGCOM Blood Gas Urgent Comm, Rajeev value Result Comment: SEPSIS LACT LAB VCBWHO Notified Whom, Rajeev Called to and read back by Result Comment: AMARILYS HENSON LAB VCBDTE [id number] Notify Date, Rajeev LAB VCBTME Notify Time, Rajeev Performed By: #### SLACT #### [facility] [address] [place], [place] [address] HEMOGLOBIN Collected: 11/26/2017 Status: F Source: [place] 10:09 AM [facility] REPOSITORY TYPE CODE TESTS RESULT OUT OF REFERENCE UNITS RANGE LAB HGB 11.5-15.5 g/dL Low Hemoglobin 11.4 Performed By: #### HGB #### [facility] [address] [place], [place] [address] CONSULT PROG Observed: 11/26/2017 Status: COMPLETED Source: [place] 7:00 AM [facility] REPOSITORY HNO ID: [id number] Author: Afia Roman Service: Vascular Medicine Author [...] mg ORAL/FEEDING TUBE q 4 H PRN hosnbxqzhrDAJSV-cjakrs-hfsfwvoum 10 mL oral liquid (BMX 1:1:1) 10 [...] repeat aPTT tomorrow morning. Please call [facility] [phone] if not within therapeutic range Bival and [...] 26, 2017 TIME: 7:00 AM PAGER/CONTACT #: [phone] . [facility] STAFF PHYSICIAN NOTE OF PERSONAL INVOLVEMENT IN [...] as appropriate. I have personally performed a dvsf-si-mtce assessment of the patient and I have discussed the case and management of the patient's care. STAFF PHYSICIAN: Afia Roman MD DATE OF SERVICE: November 26, 2017 TIME OF SERVICE: 11:38 AM PROGRESS Observed: 11/26/2017 Status: COMPLETED Source: [place] 5:52 AM [facility] REPOSITORY [facility] ID: [id number] Author: Thomas Estebna Service: General Internal Medicine Author Type: Physician Type: Progress Notes Filed: 11/26/2017 5:37 PM Note Text: RAF Terry PROGRESS NOTE After 5 pm on weekdays and 3pm on weekends and holidays please page information technology security analyst pager [phone] SERVICE DATE: 11/26/2017 SERVICE TIME: 6:48 PM [...] mg ORAL/FEEDING TUBE q 4 H PRN kvgkrjftelBYRSA-xbhgmg-pfnqaptrb 10 mL oral liquid (BMX 1:1:1) 10 [...] IR emobolization of left L3 artery at [place] on 10/23 IR embolization of left L2 [...] 11/03, 11/13 (heme following); patient is on [id number] (Mondays), next scheduled for 11/27 11/22: started [...] painin morning, access site for embolization at [place], no erythema or induration appreciated on exam, exquisitely TTP Groin study showed no signs of PSA, known AV fistula visualized with retrograde flow, vascular med aware- no further recs 10/28: pain less severe, no physical exam findings Repeat Leg DVT shows no pseudoaneurysm Likely due to nerve compression/RP hematoma causing compressive symtpoms S/p R groin drain placed at [place] on 10/24 s/p L groin drain placed at [facility] during embolization on 10/26 Plan: - [...] provider. SIGNATURE: Adin Goldsmith MD PATIENT NAME: aPloma Cannon DATE: November 26, 2017 TIME: 6:48 AM PAGER: [phone] [facility] STAFF PHYSICIAN NOTE OF PERSONAL INVOLVEMENT IN [...] CARE COORDINATION: SIGNATURE: Thomas Esteban MD PAGER: [phone] DATE of SERVICE: 11/26 TIME of SERVICE: [...] 5:30PM CBC Collected: 11/26/2017 Status: F Source: [place] 5:14 AM [facility] REPOSITORY TYPE CODE TESTS RESULT OUT [...] By: #### CBC, PT, PTT, RFP #### [facility] [address] [place], [place] [address] PROTIME Collected: 11/26/2017 Status: F Source: [place] 5:14 AM [facility] REPOSITORY TYPE CODE TESTS RESULT OUT OF RANGE REFERENCE UNITS LAB PSEC 9.7-13.0 sec High PT Sec 14.3 LAB INR 0.9-1.3 High PT INR 1.4 Result Comment: Vitamin K Antagonist (VKA) Therapeutic Range: INR 2 to 3 (Target INR of 2.5) Note: For patients treated with VKA drugs, such as warfarin, the [place] [employer] 2012 Guideline recommends [...] Chest 2012, 141:7S-47S Diogenes RESENDIZ et al. [facility] 2017, 70: 252-289 Performed By: #### CBC, PT, PTT, RFP #### [facility] [address] [place], [place] [address] APTT Collected: 11/26/2017 Status: F Source: [place] 5:14 AM [facility] REPOSITORY TYPE CODE TESTS RESULT OUT [...] laboratory APTT reagent in use throughout the [facility]. Performed By: #### CBC, PT, PTT, RFP #### [facility] [address], [place] [address] RENAL FUNCTION PANEL Collected: 11/26/2017 Status: F Source: [place] 5:14 AM [facility] REPOSITORY TYPE CODE TESTS RESULT OUT OF REFERENCE UNITS RANGE LAB ALB 3.9-4.9 g/dL Low Albumin 3.3 LAB CA 8.5-10.2 mg/dL Calcium, Total 8.7 LAB PHOS 2.7-4.8 mg/dL Phosphorus 3.9 LAB GLU 74-99 mg/dL Glucose 75 Result Comment: The [place] Diabetes Association (ADA) provides guidance for cutoff [...] Standards of Medical Care in Diabetes 2016, [place] [employer]. Diabetes Care. 2016.39(Suppl 1). LAB [...] By: #### CBC, PT, PTT, RFP #### [facility] [address], [place] [address] PROGRESS Observed: 11/25/2017 Status: COMPLETED Source: [place] 9:47 PM [facility] REPOSITORY HNO ID: [id number] Author: Thomas Esteban Service: General Internal Medicine Author Type: Physician Type: Progress Notes Filed: 11/26/2017 9:07 AM Note Text: RAF Terry PROGRESS NOTE For questions regarding this patient today please page [phone] After 5 pm on weekdays and 3pm on weekends and holidays please page information technology security analyst pager [phone] SERVICE DATE: 11/25/2017 SERVICE TIME: 9:48 PM [...] mg ORAL/FEEDING TUBE q 4 H PRN juuwzvbolcUWTIU-ewibyi-pvpudrjni 10 mL oral liquid (BMX 1:1:1) 10 [...] IR emobolization of left L3 artery at [place] on 10/23 IR embolization of left L2 [...] 11/03, 11/13 (heme following); patient is on [id number] (Mondays) schedule outpatient 11/22: starting bivalirudin Plan: [...] contrast, now requiring dialysis First HD at [place] on 10/25 with tunneled dialysis catheter placement [...] this morning, access site for embolization at [place], no erythema or induration appreciated on exam, exquisitely TTP Groin study showed no signs of PSA, known AV fistula visualized with retrograde flow, vascular med aware- no further recs 10/28: pain less severe, no physical exam findings Repeat Leg DVT shows no pseudoaneurysm Likely due to nerve compression/RP hematoma causing compressive symtpoms S/p R groin drain placed at [place] on 10/24 s/p L groin drain placed at [facility] during embolization on 10/26 Plan: - Pain management-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 REIMBURSEMENT COUNSELOR as of transfer to [facility] - Will continue to wean dilaudid as [...] November 25, 2017 TIME: 9:48 PM PAGER: [phone] [facility] STAFF PHYSICIAN NOTE OF PERSONAL INVOLVEMENT IN [...] CARE COORDINATION: SIGNATURE: Thomas Esteban MD PAGER: [phone] DATE of SERVICE: 11/25 TIME of SERVICE: 9am PROGRESS Observed: 11/25/2017 Status: COMPLETED Source: [place] 9:09 PM [facility] REPOSITORY HNO ID: [id number] Author: Thomas Esteban Service: General Internal Medicine [...] start of levsin Thomas Esteban MD pager [phone] 11/25 9am CONSULT PROG Observed: 11/25/2017 Status: COMPLETED Source: [place] 7:52 AM [facility] REPOSITORY HNO ID: [id number] Author: Afia Roman Service: Vascular Medicine Author [...] mg ORAL/FEEDING TUBE q 4 H PRN ebemrhtauoCUNVP-wcxhmt-zokqbdnbg 10 mL oral liquid (BMX 1:1:1) 10 [...] repeat aPTT tomorrow morning. Please call [facility] [phone] if not within therapeutic range Bival and [...] 25, 2017 TIME: 7:53 AM PAGER/CONTACT #: [phone] . [facility] STAFF PHYSICIAN NOTE OF PERSONAL INVOLVEMENT IN CARE I have reviewed the documentation obtained and documented by Dr. Pan and have reviewed and updated the problem list as appropriate. I have personally performed a dfzq-ut-zuyu assessment of the patient and I have discussed the case and management of the patient's care. STAFF PHYSICIAN: Afia Roman MD DATE OF SERVICE: November 25, 2017 TIME OF SERVICE: 1:54 PM CBC Collected: 11/25/2017 Status: F Source: [place] 4:29 AM [facility] REPOSITORY TYPE CODE TESTS RESULT OUT [...] Performed By: #### CBC, PT, PTT #### [facility] [address] [place], [place] [address] PROTIME Collected: 11/25/2017 Status: F Source: [place] 4:29 [facility] REPOSITORY TYPE CODE TESTS RESULT OUT OF RANGE REFERENCE UNITS LAB PSEC 9.7-13.0 sec High PT Sec 14.3 LAB INR 0.9-1.3 High PT INR 1.4 Result Comment: Vitamin K Antagonist (VKA) Therapeutic Range: INR 2 to 3 (Target INR of 2.5) Note: For patients treated with VKA drugs, such as warfarin, the [place] [employer]icians 2012 Guideline recommends [...] Chest 2012, 141:7S-47S Diogenes RA, et al. [facility] 2017, 70: 252-289 Performed By: #### CBC, PT, PTT #### [facility] [address] [place], [place] [address] APTT Collected: 11/25/2017 Status: F Source: [place] 4:29 [facility] REPOSITORY TYPE CODE TESTS RESULT OUT [...] laboratory APTT reagent in use throughout the [facility]. Performed By: #### CBC, PT, PTT #### [facility] [address], [place] [address] THERAPY NT Observed: 11/24/2017 Status: COMPLETED Source: [place] 3:06 PM [facility] [place] REPOSITORY HNO ID: [id number] Author: Tamiko (Pt) Adelaida Service: Physical Therapy Author Type: Physical Therapist Type: Therapy (PT/OT/Speech/Resp) Filed: 11/24/2017 3:12 PM Note Text: Physical Therapy Wound/Lymph Treatment SERVICE DATE: 11/24/2017 SERVICE TIME: 1433 to 1459 ROOM: [place] [address] Recommended Discharge Disposition Comments: will require further [...] Patient TREATMENT INTERVENTIONS: Interventions Provided: Manual Therapy (83817) Manual Therapy (32725) Treatment Minutes: 26 2 units Skilled Intervention: [...] 24, 2017 TIME: 3:06 PM PAGER/CONTACT #: [phone] THERAPY NT Observed: 11/24/2017 Status: COMPLETED Source: [place] 2:58 PM [facility] REPOSITORY HNO ID: [id number] Author: Yue Uriostegui Service: Occupational Therapy Author Type: Occupational Therapist Type: Therapy (PT/OT/Speech/Resp) Filed: 11/24/2017 2:58 PM Note Text: OCCUPATIONAL THERAPY MISSED VISIT SERVICE DATE: 11/24/2017 SERVICE TIME: 1453 to 1453 ROOM: [place] [address] Attempted Treatment. Patient not seen due to Another service at bedside- working with PT. Will re-attempt as able. SIGNATURE: Yue Uriostegui OTR/L PATIENT NAME: Paloma Cannon DATE: November 24, 2017 TIME: 2:58 PM PAGER/CONTACT #:[phone] PROGRESS Observed: 11/24/2017 Status: COMPLETED Source: [place] 2:37 PM [facility] REPOSITORY HNO ID: [id number] Author: Ros Wayne Service: General Internal Medicine Author Type: Physician Type: Progress Notes Filed: 11/24/2017 9:05 PM Note Text: RAF Terry PROGRESS NOTE For questions regarding this patient today please page [phone] After 5 pm on weekdays and 3pm on weekends and holidays please page information technology security analyst pager [phone] SERVICE DATE: 11/24/2017 SERVICE TIME: 2:41 PM [...] CONSTULOSE) 20 g ORAL q 2 H gusiizlbybLPHXW-uuzvbd-otyitmscm 10 mL oral liquid (BMX 1:1:1) 10 [...] with VKA drugs, such as warfarin, the [place] [employer]icians 2012 Guideline recommends [...] Chest 2012, 141:7S-47S Diogenes RA, et al. [facility] 2017, 70: 252-289 ASSESSMENT AND PLAN: Active Hospital Problems Diagnosis - Retroperitoneal hematoma Retroperitoneal bleed: s/p 7 units PRBCs s/p IR emobolization of left L3 artery at [place] on 10/23 IR embolization of left L2 [...] 11/03, 11/13 (heme following); patient is on m0scuiy (Mondays) schedule outpatient 11/22: starting bivalirudin Plan: [...] contrast, now requiring dialysis First HD at [place] on 10/25 with tunneled dialysis catheter placement [...] this morning, access site for embolization at [place], no erythema or induration appreciated on exam, exquisitely TTP Groin study showed no signs of PSA, known AV fistula visualized with retrograde flow, vascular med aware- no further recs 10/28: pain less severe, no physical exam findings Repeat Leg DVT shows no pseudoaneurysm Likely due to nerve compression/RP hematoma causing compressive symtpoms S/p R groin drain placed at [place] on 10/24 s/p L groin drain placed at [facility] during embolization on 10/26 Plan: - Pain management-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 REIMBURSEMENT COUNSELOR as of transfer to [facility] - Will continue to wean dilaudid as pt tolerates, currently on Dilaudid 0.3 mg q6h PRN for pain, oxycodone PO q4h PRN and gabapentin - IR consult for drain evaluation and removal on 11/05 MAINTENANCE: VTE PROPHYLAXIS:?bivalirudin + coumadin NEED FOR ZUNIGA- Removed 11/14/17 LINES: Double lumen dialysis catheter 10/25/17 Dispo-?[facility] v. Acute rehabilitation center This note is not final until staffed by the attending physician and authenticated by responsible provider. SIGNATURE: Olga Reyez MD PATIENT NAME: Paloma Cannon DATE: November 24, 2017 TIME: 2:41 PM PAGER: [phone] RAF Terry ATTENDING NOTE: Chart reviewed, patient [...] 11/25 Ros Wayne MD FACP Attending, pager [phone] PT ED Observed: 11/24/2017 Status: COMPLETED Source: [place] 1:58 PM [facility] [place] REPOSITORY O ID: [id number] Author: Estela Lester (Pharmacist) Service: Pharmacy Author [...] depending on PLEX Outpatient follow-up plan: Other: [facility] (Estela Lester, PharmD [id number]) Indication for warfarin: deep vein thrombosis (DVT) [...] Outpatient Follow-up: [facility] (Estela Lester, PharmD [phone]) Nimo Swanson, Pharmacist CONSULT PROG Observed: 11/24/2017 Status: COMPLETED Source: [place] 12:56 PM [facility] REPOSITORY HNO ID: [id number] Author: Justina Pollard (Pa) Service: Hematology Author Type: Physician Drywall Sander Type: Consult Progress Note Filed: 11/24/2017 4:22 [...] (COUMADIN) 5 mg ORAL DAILY - WARFARIN xyzfabcbhzHOCHM-mgylek-yipixgnvi 10 mL oral liquid (BMX 1:1:1) 10 [...] IR guided intervention (initially on 10/23 at [facility] and 10/26 here at [facility]. ? # Antiphospholipid antibody syndrome -recent?home [...] November 24, 2017 TIME: 12:56 PM PAGER: [phone] CT ABD/PEL WO IVCON Observed: 11/24/2017 Status: F Source: [place] 10:20 AM [facility] REPOSITORY * * *Final Report* * * DATE OF EXAM: Nov 24 2017 10:20AM [facility] [place] 0531 - CT ABD/PEL WO IVCON [...] INFECTION. NO SIGNIFICANT INTERVAL CHANGE OTHERWISE DETAILED. Glass Edger: MURTAZA Transcribe Date/Time: Nov 24 2017 10:32A Dictated by : FANY SILVER MD This examination was interpreted and the report reviewed and electronically signed by: LYDIA FARIA DO on Nov 24 2017 12:44PM EST [id number] THERAPY NT Observed: 11/24/2017 Status: COMPLETED Source: [place] 10:02 AM [facility] REPOSITORY HNO ID: [id number] Author: Ind[facility]In[facility] Service: Physical Therapy Author Type: Road Grader Type: Therapy (PT/OT/Speech/Resp) Filed: 11/24/2017 10:02 AM Note Text: Attestation signed by Jocelyn (Pt) Jared at 11/24/2017 5:08 PM I reviewed and agree with the documentation corresponding to this therapy visit. SIGNATURE: Jocelyn Coleman PT DATE: November 24, 2017 TIME: 5:08 PM PHYSICAL THERAPY MISSED VISIT SERVICE DATE: 11/24/2017 SERVICE TIME: 1002 to 1002 ROOM: [place] [address] Attempted Treatment. Patient not seen due to Test/Procedure (CT scan). SIGNATURE: Indra Woods PTA PATIENT NAME: Paloma Cannon DATE: November 24, 2017 TIME: 10:02 AM PAGER/CONTACT #: [phone] URINALYSIS WITH Collected: 11/24/2017 Status: F Source: [facility] 9:54 AM [facility] REPOSITORY TYPE CODE TESTS RESULT OUT OF RANGE REFERENCE UNITS LAB UCOL Yellow Color Yellow LAB [facility] Clear Clarity Clear LAB UGLUC Negative mg/dL Glucose, Urine Negative LAB UBIL Negative Bilirubin, Urine Negative LAB UKET Negative Ketones, Urine Negative LAB [facility]PG 1.005-1.030 Specific [place], Ur 1.020 LAB UHGB Negative Abnormal Hemoglobin/Blood, [...] 1-3 Hyaline Performed By: #### UAWMIC #### [facility] [address] [place], [place] [address] TYPE AND SCREEN Collected: 11/24/2017 Status: F Source: [place] 9:45 AM [facility] REPOSITORY TYPE CODE TESTS RESULT OUT OF REFERENCE UNITS RANGE LAB %ABR B ABO/RH(D) POSITIVE LAB % Antibody POS Screen Performed By: #### TSCR #### [facility] [address] [place] [id number] CONSULT PROG Observed: 11/24/2017 Status: COMPLETED Source: [place] 8:34 AM [facility] REPOSITORY HNO ID: [id number] Author: Magdalena (Elliott) Rodney Molina Service: Vascular Medicine Author Type: Nurse [...] (COUMADIN) 5 mg ORAL DAILY - WARFARIN qvsvrrrussYAKAT-mlesjb-smrdquzvu 10 mL oral liquid (BMX 1:1:1) 10 [...] repeat aPTT tomorrow morning. Please call [facility] [phone] if not within therapeutic range Bival and Coumadin should overlap for a minimum of 5 days and until INR is therapeutic before Bival can be discontinued. aPTTs, CBC/INR daily in house Duration of treatment: fpc Upon discharge, INR management to be resumed by Vascular Medicine SIGNATURE: Magdalena Lewis APRN.CNP PATIENT NAME: Paloma Cannon DATE: November 24, 2017 TIME: 8:35 AM PAGER/CONTACT #: [phone] . CBC Collected: 11/24/2017 Status: F Source: [place] 6:53 AM [facility] REPOSITORY TYPE CODE TESTS RESULT OUT [...] By: #### CBC, PT, PTT, BMP #### [facility] [address] [place], [place] [address] PROTIME Collected: 11/24/2017 Status: F Source: [place] 6:53 AM [facility] REPOSITORY TYPE CODE TESTS RESULT OUT OF RANGE REFERENCE UNITS LAB PSEC 9.7-13.0 sec High PT Sec 16.0 LAB INR 0.9-1.3 High PT INR 1.6 Result Comment: Vitamin K Antagonist (VKA) Therapeutic Range: INR 2 to 3 (Target INR of 2.5) Note: For patients treated with VKA drugs, such as warfarin, the [place] [employer]icians 2012 Guideline recommends [...] Chest 2012, 141:7S-47S Diogenes RA, et al. [facility] 2017, 70: 252-289 Performed By: #### CBC, PT, PTT, BMP #### [facility] [address] [place], [place] [address] APTT Collected: 11/24/2017 Status: F Source: [place] 6:53 [facility] REPOSITORY TYPE CODE TESTS RESULT OUT [...] laboratory APTT reagent in use throughout the [facility]. Performed By: #### CBC, PT, PTT, BMP #### [facility] [address] [place], [place] [address] BASIC METABOLIC PANL Collected: 11/24/2017 Status: F Source: [place] 6:53 AM [facility] REPOSITORY TYPE CODE TESTS RESULT OUT OF REFERENCE UNITS RANGE LAB GLU 74-99 mg/dL Glucose 74 Result Comment: The [place] Diabetes [employer] (ADA) provides guidance for cutoff [...] Standards of Medical Care in Diabetes 2016, [place] [employer]. Diabetes Care. 2016.39(Suppl 1). LAB [...] By: #### CBC, PT, PTT, BMP #### [facility] [address] [place], [place] [address] CONSULT PROG Observed: 11/23/2017 Status: COMPLETED Source: [place] 9:57 PM [facility] REPOSITORY HNO ID: [id number] Author: Lis Tracy Service: Physical Medicine AND Rehabilitation Author Type: Physician Type: Consult Progress Note Filed: 11/23/2017 10:18 PM Note Text: Physical Medicine and Rehabilitation Consult progress note November 23, 2017 Updates: On bival gtt, first dose of coumadin tonight. Ashley therapies. 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 [facility]. She underwent urgent [...] THERAPY NT Observed: 11/23/2017 Status: COMPLETED Source: [place] 3:50 PM [facility] REPOSITORY HNO ID: [id number] Author: Tamiko (Pt) Adelaida Service: Physical Therapy Author Type: Physical Therapist Type: Therapy (PT/OT/Speech/Resp) Filed: 11/23/2017 3:57 PM Note Text: Physical Therapy Wound/Lymph Treatment SERVICE DATE: 11/23/2017 SERVICE TIME: 1340 to 1408 ROOM: [id number] Recommended Discharge Disposition Comments: will [...] Patient TREATMENT INTERVENTIONS: Interventions Provided: Manual Therapy (03419) Manual Therapy (16591) Treatment Minutes: 28 2 units Skilled Intervention: [...] for this therapy evaluation/treatment. SIGNATURE: Tamiko Son, RASHARD PATIENT NAME: Paloma Cannon DATE: November 23, 2017 TIME: 3:50 PM PAGER/CONTACT #: [phone] PROGRESS Observed: 11/23/2017 Status: COMPLETED Source: [place] 2:26 PM [facility] REPOSITORY HNO ID: [id number] Author: Ros Wayne Service: General Internal Medicine Author Type: Physician Type: Progress Notes Filed: 11/23/2017 9:13 PM Note Text: RAF Terry PROGRESS NOTE For questions regarding this patient today please page [phone] After 5 pm on weekdays and 3pm on weekends and holidays please page information technology security analyst pager [phone] SERVICE DATE: 11/23/2017 SERVICE TIME: 2:27 PM [...] (COUMADIN) 5 mg ORAL DAILY - WARFARIN apdrktjxkjVXTUC-bgtqzs-czqoexhuj 10 mL oral liquid (BMX 1:1:1) 10 [...] IR emobolization of left L3 artery at [place] on 10/23 IR embolization of left L2 [...] 11/03, 11/13 (heme following); patient is on [id number] (Mondays) schedule outpatient 11/22: starting bivalirudin Plan: [...] contrast, now requiring dialysis First HD at [place] on 10/25 with tunneled dialysis catheter placement [...] this morning, access site for embolization at [place], no erythema or induration appreciated on exam, exquisitely TTP Groin study showed no signs of PSA, known AV fistula visualized with retrograde flow, vascular med aware- no further recs 10/28: pain less severe, no physical exam findings Repeat Leg DVT shows no pseudoaneurysm Likely due to nerve compression/RP hematoma causing compressive symtpoms S/p R groin drain placed at [place] on 10/24 s/p L groin drain placed at [facility] during embolization on 10/26 Plan: - Pain management-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 REIMBURSEMENT COUNSELOR as of transfer to [facility] - Will continue to wean dilaudid as [...] November 23, 2017 TIME: 2:27 PM PAGER: [phone] RAF Terry ATTENDING NOTE: Chart reviewed, patient [...] Rehab Ros Wayne MD FACP Attending, pager [phone] CONSULT Observed: 11/23/2017 Status: COMPLETED Source: [place] 2:03 PM [facility] REPOSITORY HNO ID: [id number] Author: Michelle Garcia Service: Physical Medicine AND Rehabilitation Author Type: Nurse Practitioner Type: Consults Filed: 11/23/2017 2:04 PM Note Text: PMANDR consult received today (duplicate). Patient seen by Dr. Starr on 11/15/17 for PMANDR consult with recommendations for likely SNF. Please see consult for details. Will have pt seen for follow up. Thank you for consult. Please call with any questions. Michelle Garcia APRN.ELLIOTT Physical Medicine and Rehabilitation pager [phone] NUTRITION Observed: 11/23/2017 Status: COMPLETED Source: [place] 9:35 AM [facility] REPOSITORY HNO ID: [id number] Author: Belem Mathis (Tabitha Woodward Service: Nutrition Therapy Author Type: Protective Signal Installer Helper Type: Nutrition Filed: 11/23/2017 9:37 AM [...] meals, according to nursing AN reports in [facility]. The patient reports; she is eating well [...] Routine Care/15 min 1 unit SIGNATURE: Belem Woodward, DTR PATIENT NAME: Paloma Cannon DATE: November 23, 2017 TIME: 9:35 AM PAGER: CBC Collected: 11/23/2017 Status: F Source: [place] 8:55 AM [facility] REPOSITORY TYPE CODE TESTS RESULT OUT [...] 0.02 Performed By: #### CBC, PTT #### [facility] [address], [place] [address] APTT Collected: 11/23/2017 Status: F Source: [place] 8:55 AM [facility] REPOSITORY TYPE CODE TESTS RESULT OUT [...] laboratory APTT reagent in use throughout the [facility]. Performed By: #### CBC, PTT #### [facility] [address], [place] [address] CONSULT PROG Observed: 11/23/2017 Status: COMPLETED Source: [place] 8:38 AM [facility] REPOSITORY HNO ID: [id number] Author: Magdalena Molina Service: Vascular Medicine Author [...] hgb 11.8 aPTT 48.3 Current Facility-Administered Medications: tbfsjibmimOMBWN-oowgft-jbgniwikp 10 mL oral liquid (BMX 1:1:1) 10 [...] repeat aPTT tomorrow morning. Please call [facility] [phone] if not within therapeutic range Bival and Coumadin should overlap for a minimum of 5 days and until INR is therapeutic before Bival can be discontinued. aPTTs, CBC/INR daily in house Duration of treatment: fpc SIGNATURE: Magdalena Lewis APRN.CNP PATIENT NAME: Paloma Cannon DATE: November 23, 2017 TIME: 10:50 AM PAGER/CONTACT #: [phone] . APTT Collected: 11/23/2017 Status: F Source: [place] 4:28 AM [facility] REPOSITORY TYPE CODE TESTS RESULT OUT [...] laboratory APTT reagent in use throughout the [facility]. Performed By: #### PTT #### [facility] [address], [place] [address] APTT Collected: 11/23/2017 Status: F Source: [place] 12:28 AM [facility] REPOSITORY TYPE CODE TESTS RESULT OUT [...] laboratory APTT reagent in use throughout the [facility]. Performed By: #### PTT #### [facility] [address], [place] [address] APTT Collected: 11/22/2017 Status: F Source: [place] 9:08 PM [facility] REPOSITORY TYPE CODE TESTS RESULT OUT [...] laboratory APTT reagent in use throughout the [facility]. Performed By: #### PTT #### [facility] [address], [place] [address] APTT Collected: 11/22/2017 Status: F Source: [place] 6:45 PM [facility] REPOSITORY TYPE CODE TESTS RESULT OUT OF REFERENCE UNITS RANGE LAB APTT 23.0-32.4 sec APTT Duplicate request Result Comment: Account Credited Performed By: #### PTT #### [place] [id number] PTT,ANTICOAG THERAPY Collected: 11/22/2017 Status: F Source: [place] 6:45 [facility] REPOSITORY TYPE CODE TESTS RESULT [...] laboratory APTT reagent in use throughout the [facility]. Performed By: #### PTTAC #### [facility] [address] [place] [id number] PROGRESS Observed: 11/22/2017 Status: COMPLETED Source: [place] 5:48 PM [facility] REPOSITORY HNO ID: [id number] Author: Ros Wayne Service: General Internal Medicine Author Type: Physician Type: Progress Notes Filed: 11/22/2017 8:39 PM Note Text: RAF Terry PROGRESS NOTE For questions regarding this patient today please page [phone] After 5 pm on weekdays and 3pm on weekends and holidays please page information technology security analyst pager [phone] SERVICE DATE: 11/22/2017 SERVICE TIME: 5:49 PM [...] 20 mg qday MEDICATIONS: Current hospital medications: wlcgimaulfNAKAE-bllpin-hzvpaabas 10 mL oral liquid (BMX 1:1:1) 10 [...] IR emobolization of left L3 artery at [place] on 10/23 IR embolization of left L2 [...] 11/03, 11/13 (heme following); patient is on w2zyjpw (Mondays) schedule outpatient Plan: Holding Cytoxan 75 mg in setting of worsening thrombocytopenia Continue prednisone 60 mg with bactrim ppx Appreciate hematology and VM recs Plan is to start bivalrudin trial once platelets stabilize and bridge to coumadin - CAPRICE (acute kidney injury) (HCC) CAPRICE on CKD III, 2/ contrast, now requiring dialysis First HD at [place] on 10/25 with tunneled dialysis catheter placement [...] this morning, access site for embolization at [place], no erythema or induration appreciated on exam, exquisitely TTP Groin study showed no signs of PSA, known AV fistula visualized with retrograde flow, vascular med aware- no further recs 10/28: pain less severe, no physical exam findings Repeat Leg DVT shows no pseudoaneurysm Likely due to nerve compression/RP hematoma causing compressive symtpoms S/p R groin drain placed at [place] on 10/24 s/p L groin drain placed at [facility] during embolization on 10/26 Plan: - Pain management-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 REIMBURSEMENT COUNSELOR as of transfer to [facility] - Will continue to wean dilaudid as [...] November 22, 2017 TIME: 5:49 PM PAGER: [phone] RAF Terry ATTENDING NOTE: Chart reviewed, patient [...] 11/27 Ros Wayne MD FACP Attending, pager [phone] ALLIED HEALTH Observed: 11/22/2017 Status: COMPLETED Source: [place] 5:00 PM [facility] REPOSITORY [facility] ID: [id number] Author: Negrito Kelley (Therapist) Miranda Service: Art [...] 22, 2017 TIME: 5:00 PM PAGER/CONTACT #: [phone] CONSULT PROG Observed: 11/22/2017 Status: COMPLETED Source: [place] 4:01 PM [facility] REPOSITORY HNO ID: [id number] Author: Justina Pollard (Pa) Service: Hematology Author Type: Physician Drywall Sander Type: Consult Progress Note Filed: 11/22/2017 4:06 PM Note Text: CONSULT PROGRESS NOTE SERVICE DATE: 11/22/2017 CONSULTING SERVICE: Hematology Subjective INTERVAL HPI: PLT count was up to 59 K today Current hospital medications: eucjlnugppUBYFO-gluxwt-jzerslcio 10 mL oral liquid (BMX 1:1:1) 10 [...] IR guided intervention (initially on 10/23 at [facility] and 10/26 here at [facility]. ? # Antiphospholipid antibody syndrome -recent?home [...] November 22, 2017 TIME: 4:01 PM PAGER: [phone] THERAPY NT Observed: 11/22/2017 Status: COMPLETED Source: [place] 3:27 PM [facility] REPOSITORY HNO ID: [id number] Author: Tamiko (Pt) Adelaida Service: Physical Therapy Author Type: Physical Therapist Type: Therapy (PT/OT/Speech/Resp) Filed: 11/22/2017 3:32 PM Note Text: Physical Therapy Wound/Lymph Treatment SERVICE DATE: 11/22/2017 SERVICE TIME: 1430 to 1453 ROOM: [place] [address] Recommended Discharge Disposition Comments: will require further [...] Patient TREATMENT INTERVENTIONS: Interventions Provided: Manual Therapy (01628) Manual Therapy (46328) Treatment Minutes: 23 2 units Skilled Intervention: [...] SIGNATURE: Tamiko Son PT PATIENT NAME: Paloma MOROCHO: November 22, 2017 TIME: 3:27 PM PAGER/CONTACT #: [phone] CONSULT Observed: 11/22/2017 Status: COMPLETED Source: [place] 2:59 PM [facility] REPOSITORY HNO ID: [id number] Author: Lacey Vicente RN Service: Wound Care Team Author Type: Registered [...] (done). 3. Obtain TruVue boots (Schreiber # [id number]) and use while in bed to offload heels. 4. Obtain positioning wedge (Schreiber #[id number]) and use to offload coccyx with every 2 hour turns. 5. Continue skin prevention measures based on Festus risk assessment scores. Electronically Signed By: [place] [id number] No further visits from [facility]; please re-consult as needed. CONSULT PROG Observed: 11/22/2017 Status: COMPLETED Source: [place] 2:05 PM [facility] REPOSITORY HNO ID: [id number] Author: Paulette Gooden (Security Tester) Davonte Service: Vascular Medicine Author Type: Nurse [...] and walked 25 feet. Current Facility-Administered Medications: szrmlusmrxKGROQ-zsekdu-hmdvegezh 10 mL oral liquid (BMX 1:1:1) 10 [...] bivalirudin (earliest tomorrow 11/23). SIGNATURE: Paulette Naranjo APRN.CYTOTECHNOLOGIST SUPERVISOR PATIENT NAME: Paloma Cannon DATE: November 22, 2017 TIME: 2:05 PM PAGER/CONTACT #: [phone] . PROTIME Collected: 11/22/2017 Status: F Source: [place] 12:45 PM [facility] REPOSITORY TYPE CODE TESTS RESULT OUT OF RANGE REFERENCE UNITS LAB PSEC 9.7-13.0 sec PT Sec 10.9 LAB INR 0.9-1.3 PT INR 1.1 Result Comment: Vitamin K Antagonist (VKA) Therapeutic Range: INR 2 to 3 (Target INR of 2.5) Note: For patients treated with VKA drugs, such as warfarin, the [place] [employer] 2012 Guideline recommends [...] Chest 2012, 141:7S-47S Diogenes RA, et al. [facility] 2017, 70: 252-289 Performed By: #### PT, PTT #### [facility] [address] [place] [address] APTT Collected: 11/22/2017 Status: F Source: [place] 12:45 PM [facility] REPOSITORY TYPE CODE TESTS RESULT OUT [...] laboratory APTT reagent in use throughout the [facility]. Performed By: #### PT, PTT #### [facility] [address] [place], [place] [address] ALLIED HEALTH Observed: 11/22/2017 Status: COMPLETED Source: [place] 11:35 AM [facility] REPOSITORY HNO ID: [id number] Author: Kayla Stewart (Therapist) GINA Levin Service: [...] follow up as able. SIGNATURE[facility] NAME: Paloma Cannon DATE: November 22, 2017 TIME: 4:15 PM PAGER/CONTACT #: [phone] CBC Collected: 11/22/2017 Status: F Source: [place] 4:50 AM [facility] REPOSITORY TYPE CODE TESTS RESULT OUT [...] nRBC <0.01 Performed By: #### CBC #### [facility] [address] [place], [place] [address] NURSING PROG Observed: 11/22/2017 Status: COMPLETED Source: [place] 4:09 AM [facility] REPOSITORY HNO ID: [id number] Author: Lisa (Rn) JEFF Bourgeois Service: Nursing [...] RN PROGRESS Observed: 11/21/2017 Status: COMPLETED Source: [place] 3:28 PM [facility] REPOSITORY HNO ID: [id number] Author: Ros Wayne Service: General Internal Medicine Author Type: Physician Type: Progress Notes Filed: 11/22/2017 6:22 AM Note Text: RAF Terry PROGRESS NOTE For questions regarding this patient today please page [phone] After 5 pm on weekdays and 3pm on weekends and holidays please page information technology security analyst pager [phone] SERVICE DATE: 11/21/2017 SERVICE TIME: 3:28 PM [...] IR emobolization of left L3 artery at [place] on 10/23 IR embolization of left L2 [...] 11/03, 11/13 (heme following); patient is on b0tatut (Mondays) schedule outpatient Plan: Holding Cytoxan 75 mg in setting of worsening thrombocytopenia Continue prednisone 60 mg with bactrim ppx Appreciate hematology and VM recs Plan is to start bivalrudin trial once platelets stabilize and bridge to coumadin - CAPRICE (acute kidney injury) (HCC) CAPRICE on CKD III, 2/2 contrast, now requiring dialysis First HD at [place] on 10/25 with tunneled dialysis catheter placement [...] this morning, access site for embolization at [place], no erythema or induration appreciated on exam, exquisitely TTP Groin study showed no signs of PSA, known AV fistula visualized with retrograde flow, vascular med aware- no further recs 10/28: pain less severe, no physical exam findings Repeat Leg DVT shows no pseudoaneurysm Likely due to nerve compression/RP hematoma causing compressive symtpoms S/p R groin drain placed at [place] on 10/24 s/p L groin drain placed at [facility] during embolization on 10/26 Plan: - Pain management-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 REIMBURSEMENT COUNSELOR as of transfer to [facility] - Will continue to wean dilaudid as [...] November 21, 2017 TIME: 3:28 PM PAGER: [phone] RAF Terry ATTENDING NOTE: Chart reviewed, patient [...] ? Ros Wayne MD FACP Attending, pager [phone] ? THERAPY NT Observed: 11/21/2017 Status: COMPLETED Source: [place] 3:26 PM [facility] REPOSITORY HNO ID: [id number] Author: Tamiko (Pt) Adelaida Service: Physical Therapy Author Type: Physical Therapist Type: Therapy (PT/OT/Speech/Resp) Filed: 11/21/2017 3:31 PM Note Text: Physical Therapy Wound/Lymph Treatment SERVICE DATE: 11/21/2017 SERVICE TIME: 1417 to 1445 ROOM: [place] [address] Recommended Discharge Disposition Comments: will require further [...] Patient TREATMENT INTERVENTIONS: Interventions Provided: Manual Therapy (53641) Manual Therapy (63424) Treatment Minutes: 28 2 units Skilled Intervention: [...] 21, 2017 TIME: 3:26 PM PAGER/CONTACT #: [phone] CASE MANAGEM Observed: 11/21/2017 Status: COMPLETED Source: [place] 11:49 AM [facility] REPOSITORY HNO ID: [id number] Author: Jacinta SanchezRn) JEFF Olmedo Service: Care [...] Will need precert. .AwaitingPMANDR re-eval snf vs [facility]. Per Gissell Main [place] Liason (p) [phone] unable to accept. Referal sent to Peyman ISBELL (via [facility] central number (p) [phone] and (f) [phone]) for review at direction of [place] liason [...] , has home O2 2L 02 [facility] is Elsa Matos (p) - updated on dc plan.Per Elsa, precert phone # is [phone]. CM to continue to follow SIGNATURE: Jacinta Olmedo RN PATIENT NAME: Paloma Cannon DATE: November 21, 2017 TIME: 11:49 AM PAGER/CONTACT #: [phone] NURSING PROG Observed: 11/21/2017 Status: COMPLETED Source: [place] 11:05 AM [facility] REPOSITORY HNO ID: [id number] Author: Tiffani SanchezRn) JEFF Hernadez Service: (none) Author Type: Registered [...] monitor. This note was completed by: Tiffani Hernadez, JEFF THERAPY NT Observed: 11/21/2017 Status: COMPLETED Source: [place] 10:54 AM [facility] REPOSITORY HNO ID: [id number] Author: Indra Macias) [facility] Service: Physical Therapy Author Type: Road Grader Type: Therapy (PT/OT/Speech/Resp) Filed: 11/21/2017 11:03 AM Note Text: Attestation signed by Brenda Martinez) Kt at 11/21/2017 1:30 PM I reviewed and agree with the assessment as documented above. SIGNATURE: Brenda Meraz, PT DATE: November 21, 2017 TIME: 1:29 PM Physical Therapy Treatment SERVICE DATE: 11/21/2017 SERVICE TIME: 0948 to 1047 ROOM: [place] [address] Recommended Discharge Disposition: Acute Rehab Justification For [...] Diagnosis: Reduced mobility-other Interventions Provided: Gait Training (58411);Therapeutic Activity (38582);Therapeutic Exercise (09710) Therapeutic Exercise (01705) Treatment Minutes: 15 1 unit Skilled Intervention(s): [...] in reasoning for each exercise. Therapeutic Activity (40135) Treatment Minutes: 18 1 unit Skilled Intervention(s): [...] gaze, trunk alignment and balance Gait Training (36196) Treatment Minutes: 23 2 units Skilled Intervention(s): [...] 21, 2017 TIME: 10:54 AM PAGER/CONTACT #: [phone] PROGRESS Observed: 11/21/2017 Status: COMPLETED Source: [place] 9:46 AM [facility] RE[facility] O ID: [id number] Author: Tiffani Hernadez (Rn), RN Service: (none) Author Type: Registered Nurse Type: Progress Notes Filed: 11/21/2017 9:47 AM Note Text: Nursing Progress Note Vital Customs Compliance Director Assessment Note Patient Name: Paloma Cannon Patient [...] ALLIED HEALTH Observed: 11/21/2017 Status: COMPLETED Source: [place] 9:41 AM [facility] REPOSITORY HNO ID: [id number] Author: Allie Baig (Rn), RN Service: Wound/Ostomy Author Type: Registered Nurse Type: Allied Health Filed: 11/21/2017 9:42 AM Note Text: ET/WOCN Nursing Consult Topic: ET/WOCN Consultation Note ET Outcome: Previously pouching L groin wound. Pt no longer has pouch over wound states that drainage has stopped. No other needs from [facility] at this time. Please place consult in [facility] if patients needs change Time Increment: 15 minutes Allie Baig BSN RN WO Nursing WO Nursing - Please place consult via [facility]. Thank you. (M-F: [phone]; Weekends AND Holidays: [phone]). CONSULT PROG Observed: 11/21/2017 Status: COMPLETED Source: [place] 8:39 AM [facility] REPOSITORY HNO ID: [id number] Author: Justina Pollard (Pa) Service: Hematology Author Type: Physician Drywall Sander Type: Consult Progress Note Filed: 11/21/2017 4:02 [...] IR guided intervention (initially on 10/23 at [facility] and 10/26 here at [facility]. ? # Antiphospholipid antibody syndrome -recent?home [...] November 21, 2017 TIME: 8:39 AM PAGER: [phone] CBC Collected: 11/21/2017 Status: F Source: [place] 4:40 AM [facility] REPOSITORY TYPE CODE TESTS RESULT OUT [...] Performed By: #### CBC, BMP, MG1 #### [facility] [address] [place], [place] [address] BASIC METABOLIC PANL Collected: 11/21/2017 Status: F Source: [place] 4:40 AM [facility] REPOSITORY TYPE CODE TESTS RESULT OUT OF REFERENCE UNITS RANGE LAB GLU 74-99 mg/dL Low Glucose 71 Result Comment: The [place] Diabetes Association (ADA) provides guidance for cutoff [...] Standards of Medical Care in Diabetes 2016, [place] [employer] Association. Diabetes Care. 2016.39(Suppl 1). LAB [...] Performed By: #### CBC, BMP, MG1 #### [facility] [address] [place] [address] MAGNESIUM Collected: 11/21/2017 Status: F Source: [place] 4:40 AM [facility] REPOSITORY TYPE CODE TESTS RESULT OUT OF REFERENCE UNITS RANGE LAB MG 1.7-2.3 mg/dL Magnesium 1.8 Performed By: #### CBC, BMP, MG1 #### [facility] [address] [place] [id number] NURSING PROG Observed: 11/20/2017 Status: COMPLETED Source: [place] 11:42 PM [facility] REPOSITORY HNO ID: [id number] Author: Lisa Bourgeois (Rn), RN Service: Nursing [...] Increased pt to 3 [place] [phone] notifying of O2 increase. Pt sleeping at this time. Satting 89-91% on 3 L currently. Pt educated on importance of turning and skin care, pt understands, refusing throughout night d/t pt being comfortable and wanting to sleep. This note was completed by: Lisa Bourgeois RN THERAPY NT Observed: 11/20/2017 Status: COMPLETED Source: [place] 4:01 PM [facility] REPOSITORY [facility] ID: [id number] Author: Indra Woods (Donya) Service: Physical Therapy Author Type: Road Grader Type: Therapy (PT/OT/Speech/Resp) Filed: 11/20/2017 4:01 PM Note Text: Attestation signed by Brenda Meraz (Pt) at 11/21/2017 7:35 AM I reviewed and agree with the assessment as documented above. SIGNATURE: Brenda Meraz PT DATE: November 21, 2017 TIME: 7:34 AM PHYSICAL THERAPY MISSED VISIT SERVICE DATE: 11/20/2017 SERVICE TIME: 1600 to 1600 ROOM: [place] [address] Attempted Treatment. Patient not seen due to Other: See Comment (Out of room). SIGNATURE: Indra Woods PTA PATIENT NAME: Paloma Cannon DATE: November 20, 2017 TIME: 4:01 PM PAGER/CONTACT #: [phone] PROGRESS Observed: 11/20/2017 Status: COMPLETED Source: [place] 3:02 PM [facility] REPOSITORY HNO ID: [id number] Author: Ros Wayne Service: General Internal Medicine Author Type: Physician Type: Progress Notes Filed: 11/20/2017 8:50 PM Note Text: RAF Terry PROGRESS NOTE For questions regarding this patient today please page [phone] After 5 pm on weekdays and 3pm on weekends and holidays please page information technology security analyst pager [phone] SERVICE DATE: 11/20/2017 SERVICE TIME: 3:03 PM [...] IR emobolization of left L3 artery at [place] on 10/23 IR embolization of left L2 [...] 11/03, 11/13 (heme following); patient is on i6tsdrm (Mondays) schedule outpatient Plan: Holding Cytoxan 75 mg in setting of worsening thrombocytopenia Continue prednisone 60 mg with bactrim ppx Appreciate hematology and VM recs Plan is to start bivalrudin trial once platelets stabilize and bridge to coumadin - CAPRICE (acute kidney injury) (HCC) CAPRICE on CKD III, 2/ contrast, now requiring dialysis First HD at [place] on 10/25 with tunneled dialysis catheter placement [...] this morning, access site for embolization at [place], no erythema or induration appreciated on exam, exquisitely TTP Groin study showed no signs of PSA, known AV fistula visualized with retrograde flow, vascular med aware- no further recs 10/28: pain less severe, no physical exam findings Repeat Leg DVT shows no pseudoaneurysm Likely due to nerve compression/RP hematoma causing compressive symtpoms S/p R groin drain placed at [place] on 10/24 s/p L groin drain placed at [facility] during embolization on 10/26 Plan: - Pain management-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 REIMBURSEMENT COUNSELOR as of transfer to [facility] - Will continue to wean dilaudid as [...] November 20, 2017 TIME: 3:03 PM PAGER: [phone] RAF Terry ATTENDING NOTE: Chart reviewed, patient [...] above Ros Wayne MD FACP Attending, pager [phone] CASE MANAGEM Observed: 11/20/2017 Status: COMPLETED Source: [place] 12:41 PM [facility] REPOSITORY HNO ID: [id number] Author: Renetta Villanueva Service: Care Management Author Type: (none) Type: Care Mgt Progress Note Filed: 11/20/2017 12:42 PM Note Text: CARE MANAGEMENT PROGRESS NOTE SERVICE DATE: 11/20/2017 SERVICE TIME: 12:02 PM LOS: 26 days IM letter given to patient on 11/20/17. SIGNATURE: Kael Banksrical Assistant PATIENT NAME: Paloma Cannon DATE: November 20, 2017 TIME: 12:41 PM PAGER/CONTACT #: [phone] THERAPY NT Observed: 11/20/2017 Status: COMPLETED Source: [place] 12:29 PM [facility] REPOSIT[facility] HNO ID: [id number] Author: Akanksha Murdock (Otr/L) Service: Occupational Therapy Author Type: Occupational Therapist Type: Therapy (PT/OT/Speech/Resp) Filed: 11/20/2017 12:32 PM Note Text: Occupational Therapy Treatment SERVICE DATE: 11/20/2017 SERVICE TIME: 1140 to 1150 ROOM: [place] [address] Recommended Discharge Disposition: Acute Rehab Justification For [...] daily living (ADL) Interventions Provided: Therapeutic Exercise (87510) Therapeutic Exercise (05854) Treatment Minutes: 10 1 unit Skilled Intervention(s): [...] November 20, 2017 TIME: 12:29 PM PAGER: [phone] CONSULT PROG Observed: 11/20/2017 Status: COMPLETED Source: [place] 10:04 AM [facility] [place] REPOSITORY HNO ID: [id number] Author: Justina Pollard) Service: Hematology Author Type: Physician Drywall Sander Type: Consult Progress Note Filed: 11/20/2017 2:29 [...] IR guided intervention (initially on 10/23 at [facility] and 10/26 here at [facility]. ? # Antiphospholipid antibody syndrome -recent?home [...] November 20, 2017 TIME: 10:05 AM PAGER: [phone] THERAPY NT Observed: 11/20/2017 Status: COMPLETED Source: [place] 9:51 AM [facility] REPOSITORY HNO ID: [id number] Author: Indra Woods (Natural Resource Manager) Service: Physical Therapy Author Type: Road Grader Type: Therapy (PT/OT/Speech/Resp) Filed: 11/20/2017 9:53 AM Note Text: Attestation signed by Brenda Meraz (Pt) at 11/20/2017 10:49 AM I reviewed and agree with the assessment as documented above. SIGNATURE: Brenda Meraz, PT DATE: November 20, 2017 TIME: 10:48 AM PHYSICAL THERAPY MISSED VISIT SERVICE DATE: 11/20/2017 SERVICE TIME: 0950 to 0950 ROOM: [place] [address] Attempted Treatment. Patient not seen due to declined (Pt declined due to having a lot of back pain, Pt just received pain meds. Will attempt in pm as able). SIGNATURE: Indra Woods PTA PATIENT NAME: Paloma Cannon DATE: November 20, 2017 TIME: 9:51 AM PAGER/CONTACT #: [phone] CBC Collected: 11/20/2017 Status: F Source: [place] 4:00 AM [facility] REPOSITORY TYPE CODE TESTS RESULT OUT [...] nRBC Performed By: #### CBC, BMP #### [facility] [address] [place], [place] [address] BASIC METABOLIC PANL Collected: 11/20/2017 Status: F Source: [place] 4:00 AM [facility] REPOSITORY TYPE CODE TESTS RESULT OUT OF REFERENCE UNITS RANGE LAB GLU 74-99 mg/dL Glucose 78 Result Comment: The [place] Diabetes Association (ADA) provides guidance for cutoff [...] Standards of Medical Care in Diabetes 2016, [place] Diabetes Association. Diabetes Care. 2016.39(Suppl 1). LAB [...] GFR. Performed By: #### CBC, BMP #### [facility] [address] [place], [place] [address] TYPE AND SCREEN Collected: 11/20/2017 Status: F Source: [place] 4:00 AM [facility] REPOSITORY TYPE CODE TESTS RESULT OUT OF REFERENCE UNITS RANGE LAB %ABR B ABO/RH(D) POSITIVE LAB % Antibody POS Screen Performed By: #### TSCR #### [facility] [address] [place], [place] [address] XR CHEST 1V FRONTAL Observed: 11/19/2017 Status: F Source: [facility] 11:07 PM [facility] REPOSITORY * * *Final Report* * [...] is mildly enlarged. Other: No bony abnormalities. Glass Edger: MURTAZA Transcribe Date/Time: Nov 20 2017 6:25A Dictated by : MERCY PETERS MD This examination was interpreted and the report reviewed and electronically signed by: MAHOGANY ECHAVARRIA MD on Nov 20 2017 7:30AM EST [id number] NURSING PROG Observed: 11/19/2017 Status: COMPLETED Source: [place] 11:04 PM [facility] REPOSITORY HNO ID: [id number] Author: Lisa Bourgeois (Rn), RN Service: Nursing Author Type: Registered Nurse Type: Nursing Progress Note Filed: 11/19/2017 11:08 PM Note Text: Nursing Progress Note Patient Name: Paloma Cannon Patient Location: H080 H080 Daily Note: Pt off floor in wheelchair [...] NURSING PROG Observed: 11/19/2017 Status: COMPLETED Source: [place] 4:01 PM [facility] REPOSITORY HNO ID: [id number] Author: Grace Deal), RN Service: Nursing Author Type: Registered Nurse [...] RN PROGRESS Observed: 11/19/2017 Status: COMPLETED Source: [place] 3:18 PM [facility] REPOSITORY HNO ID: [id number] Author: Ros Wayne Service: General Internal Medicine Author Type: Physician Type: Progress Notes Filed: 11/19/2017 9:08 PM Note Text: RAF Terry PROGRESS NOTE For questions regarding this patient today please page [phone] After 5 pm on weekdays and 3pm on weekends and holidays please page information technology security analyst pager [phone] SERVICE DATE: 11/19/2017 SERVICE TIME: 3:18 PM [...] IR emobolization of left L3 artery at [place] on 10/23 IR embolization of left L2 [...] 11/03, 11/13 (heme following); patient is on [id number] (Mondays) schedule outpatient Plan: Holding Cytoxan 75 mg in setting of worsening thrombocytopenia Continue prednisone 60 mg with bactrim ppx Appreciate hematology and VM recs Plan is to start bivalrudin trial once platelets stabilize and bridge to coumadin - CAPRICE (acute kidney injury) (HCC) CAPRICE on CKD III, 2/2 contrast, now requiring dialysis First HD at [place] on 10/25 with tunneled dialysis catheter placement [...] this morning, access site for embolization at [place], no erythema or induration appreciated on exam, exquisitely TTP Groin study showed no signs of PSA, known AV fistula visualized with retrograde flow, vascular med aware- no further recs 10/28: pain less severe, no physical exam findings Repeat Leg DVT shows no pseudoaneurysm Likely due to nerve compression/RP hematoma causing compressive symtpoms S/p R groin drain placed at [place] on 10/24 s/p L groin drain placed at [facility] during embolization on 10/26 Plan: - Pain management-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 REIMBURSEMENT COUNSELOR as of transfer to [facility] - Will continue to wean dilaudid as pt tolerates, currently on Dilaudid 0.3 mg q4h PRN for pain, oxycodone PO PRN and gabapentin - IR consult for drain evaluation and removal on 11/05 MAINTENANCE: VTE PROPHYLAXIS:?will start bivalirudin most likely today NEED FOR ZUNIGA- Removed 11/14/17 LINES: Double lumen dialysis catheter 10/25/17 Dispo-?[facility] v. Acute rehabilitation cyril This note is not final until staffed by the attending physician and authenticated by responsible provider. SIGNATURE: Olga Reyez MD PATIENT NAME: Paloma Cannon DATE: November 19, 2017 TIME: 3:18 PM PAGER: [phone] RAF Terry ATTENDING NOTE: Chart reviewed, patient [...] ? Ros Wayne MD FACP Attending, pager [phone] NURSING PROG Observed: 11/19/2017 Status: COMPLETED Source: [place] 6:55 AM [facility] REPOSITORY HNO ID: [id number] Author: Lisa Bourgeois (Jeff), RN Service: Nursing Author Type: Registered Nurse Type: Nursing Progress Note Filed: 11/19/2017 6:55 AM Note Text: Nursing Progress Note Patient Name: Paloma Cannon Patient Location: [place] [address]/[id number] Daily Note: [place] nights paged regarding K of 3.3 on this AM labs. This note was completed by: Lisa Bourgeois, RN CBC Collected: 11/19/2017 Status: F Source: [place] 4:23 AM [facility] REPOSITORY TYPE CODE TESTS RESULT OUT [...] nRBC Performed By: #### CBC, BMP #### [facility] [address] [place], [place] [address] BASIC METABOLIC PANL Collected: 11/19/2017 Status: F Source: [place] 4:23 AM [facility] REPOSITORY TYPE CODE TESTS RESULT OUT OF REFERENCE UNITS RANGE LAB GLU 74-99 mg/dL High Glucose 107 Result Comment: The [place] Diabetes Association (ADA) provides guidance for cutoff [...] Standards of Medical Care in Diabetes 2016, [place] Diabetes Association. Diabetes Care. 2016.39(Suppl 1). LAB [...] GFR. Performed By: #### CBC, BMP #### [facility] [address] [place], [place] [address] NURSING PROG Observed: 11/18/2017 Status: COMPLETED Source: [place] 3:44 PM [facility] REPOSITORY HNO ID: [id number] Author: Grace Deal (Rn), RN Service: Nursing Author Type: Registered Nurse Type: Nursing Progress Note Filed: 11/18/2017 7:10 PM Note Text: Nursing Progress Note Patient Name: Paloma Cannon Patient Location: [place] [address] Daily Note:Changed dressing to both left chest [...] RN PROGRESS Observed: 11/18/2017 Status: COMPLETED Source: [place] 2:33 PM [facility] REPOSITORY HNO ID: [id number] Author: Ros Wayne Service: General Internal Medicine Author Type: Physician Type: Progress Notes Filed: 11/18/2017 9:53 PM Note Text: RAF Terry PROGRESS NOTE For questions regarding this patient today please page [phone] After 5 pm on weekdays and 3pm on weekends and holidays please page information technology security analyst pager [phone] INTERVAL HISTORY: - Platelets downtrended today. 39. [...] IR emobolization of left L3 artery at [place] on 10/23 IR embolization of left L2 [...] 11/03, 11/13 (heme following); patient is on [id number] (Mondays) schedule outpatient Plan: Holding Cytoxan 75 mg in setting of worsening thrombocytopenia Continue prednisone 60 mg with bactrim ppx Appreciate hematology and VM recs Plan is to start bivalrudin trial once platelets stabilize and bridge to coumadin - CAPRICE (acute kidney injury) (HCC) CAPRICE on CKD III, 2/2 contrast, now requiring dialysis First HD at [place] on 10/25 with tunneled dialysis catheter placement [...] gabapentin renally dosed. - Right groin pain 4/20: C/o acute pain this morning, access site for embolization at [place], no erythema or induration appreciated on exam, exquisitely TTP Groin study showed no signs of PSA, known AV fistula visualized with retrograde flow, vascular med aware- no further recs 10/28: pain less severe, no physical exam findings Repeat Leg DVT shows no pseudoaneurysm Likely due to nerve compression/RP hematoma causing compressive symtpoms S/p R groin drain placed at [place] on 10/24 s/p L groin drain placed at [facility] during embolization on 10/26 Plan: - Pain management-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 REIMBURSEMENT COUNSELOR as of transfer to [facility] - Will continue to wean dilaudid as pt tolerates, currently on Dilaudid 0.3 mg q4h PRN for pain, oxycodone PO PRN and gabapentin - IR consult for drain evaluation and removal on 11/05 MAINTENANCE: VTE PROPHYLAXIS:?will start bivalirudin once platelet count improves to 50. NEED FOR ZUNIGA- Removed 11/14/17 LINES: Double lumen dialysis catheter 10/25/17 Dispo-?[facility] v. Acute rehabilitation cyril This note is not final until staffed by the attending physician and authenticated by responsible provider. Gustavo Vidal MD IM PGY-3, [id number] 11/18/2017 2:34 PM RAF Terry ATTENDING NOTE: [...] chair Ros Wayne MD FACP Attending, pager [phone] METHYLMALONIC ACID Collected: 11/18/2017 Status: F Source: [place] 8:59 AM [facility] REPOSITORY TYPE CODE TESTS RESULT OUT OF REFERENCE UNITS RANGE LAB MMA 79-376 nmol/L Methylmalonic Acid 336 Result Comment: This test was developed and its performance characteristics determined by [facility]'s [facility] [place] (-[facility]). It has not been cleared or approved by the FDA. -[facility] is regulated under CLIA as qualified to perform high-complexity testing. This test is used for clinical purposes. It should not be regarded as investigational or for research. Performed By: #### MMA #### [facility] [address] [place], [place] [address] CBC Collected: 11/18/2017 Status: F Source: [place] 4:11 AM [facility] REPOSITORY TYPE CODE TESTS RESULT OUT [...] nRBC Performed By: #### CBC, BMP #### [facility] [address] [place], [place] [address] BASIC METABOLIC PANL Collected: 11/18/2017 Status: F Source: [place] 4:11 AM [facility] REPOSITORY TYPE CODE TESTS RESULT OUT OF REFERENCE UNITS RANGE LAB GLU 74-99 mg/dL High Glucose 101 Result Comment: The [place] Diabetes Association (ADA) provides guidance for cutoff [...] Standards of Medical Care in Diabetes 2016, [place] Diabetes Association. Diabetes Care. 2016.39(Suppl 1). LAB [...] GFR. Performed By: #### CBC, BMP #### [facility] [address] [place], [place] [address] THERAPY NT Observed: 11/17/2017 Status: COMPLETED Source: [place] 11:29 AM [facility] [place] REPOSITORY HNO ID: [id number] Author: Tamiko Son (Pt) Service: Physical Therapy Author Type: Physical Therapist Type: Therapy (PT/OT/Speech/Resp) Filed: 11/17/2017 11:36 AM Note Text: Physical Therapy Wound/Lymph Treatment SERVICE DATE: 11/17/2017 SERVICE TIME: 1038 to 1110 ROOM: [place] [address] Recommended Discharge Disposition Comments: will require further [...] Patient TREATMENT INTERVENTIONS: Interventions Provided: Manual Therapy (11033) Manual Therapy (28258) Treatment Minutes: 32 2 units Skilled Intervention: [...] 17, 2017 TIME: 11:29 AM PAGER/CONTACT #: [phone] THERAPY NT Observed: 11/17/2017 Status: COMPLETED Source: [place] 10:45 AM [facility] REPOSITORY HNO ID: [id number] Author: Indra Woods (Natural Resource Manager) Service: Physical Therapy Author Type: Road Grader Type: Therapy (PT/OT/Speech/Resp) Filed: 11/17/2017 12:21 PM Note Text: Attestation signed by Jocelyn Coleman (Pt) at 11/17/2017 2:01 PM I reviewed and agree with the documentation corresponding to this therapy visit. SIGNATURE: Jocelyn Coleman, PT DATE: November 17, 2017 TIME: 2:00 PM Physical Therapy Treatment SERVICE DATE: 11/17/2017 SERVICE TIME: 924 to 1034 ROOM: [place] [address] Recommended Discharge Disposition: Acute Rehab Justification For [...] Diagnosis: Reduced mobility-other Interventions Provided: Gait Training (19669);Therapeutic Activity (31617);Therapeutic Exercise (19697) Therapeutic Exercise (99076) Treatment Minutes: 15 1 unit Skilled Intervention(s): [...] LAQ with 5 second hold. Therapeutic Activity (85739) Treatment Minutes: 30 2 units Skilled Intervention(s): [...] pacing activity. Transfer training from bed to/from [facility] with walker with cues for walker management, balance, foot placement, trunk alignment and body positioning. Static standing for hygiene with CGA/ minimal assist with cues for knee extension, forward gaze, trunk alignment and balance. Patient required extra time for all activities due to fatigue and pain. Gait Training (58584) Treatment Minutes: 23 2 units Skilled Intervention(s): [...] CODE: PT 6 Clicks Score: 12 (11/17/17 0915) Mobility: Walking and Moving Around Current Status [...] 17, 2017 TIME: 10:45 AM PAGER/CONTACT #: [phone] CONSULT Observed: 11/17/2017 Status: COMPLETED Source: [place] 10:01 AM [facility] REPOSITORY HNO ID: [id number] Author: Lila Weldon Service: Vascular Medicine Author [...] hematology following and dosing Nplate, Cytoxan held. VM now reconsulted re: resumption of anticoagulation. -Favor [...] 17, 2017 TIME: 10:02 AM PAGER/CONTACT #: [phone] . [facility] STAFF PHYSICIAN NOTE OF PERSONAL INVOLVEMENT IN CARE I have reviewed the note obtained and documented by the fellow and I personally participated in the fernandes components. I have discussed the case and management of the patient's care. The following comments revise or confirm relevant fernandes components of the note. Lila Weldon MD CONSULT PROG Observed: 11/17/2017 Status: COMPLETED Source: [place] 9:10 AM [facility] REPOSITORY O ID: [id number] Author: Justina Pollard (Cy) Service: Hematology Author Type: Physician Drywall Sander Type: Consult Progress Note Filed: 11/17/2017 6:58 [...] IR guided intervention (initially on 10/23 at [facility] and 10/26 here at [facility]. ? # Antiphospholipid antibody syndrome -recent?home [...] November 17, 2017 TIME: 9:10 AM PAGER: [phone] PROGRESS Observed: 11/17/2017 Status: COMPLETED Source: [place] 5:58 AM [facility] REPOSITORY [facility] ID: [id number] Author: Ros Wayne Service: General Internal Medicine Author Type: Physician Type: Progress Notes Filed: 11/17/2017 4:03 PM Note Text: RAF Terry PROGRESS NOTE For questions regarding this patient today please page [phone] After 5 pm on weekdays and 3pm on weekends and holidays please page information technology security analyst pager [phone] SERVICE DATE: 11/17/2017 SERVICE TIME: 5:58 AM [...] IR emobolization of left L3 artery at [place] on 10/23 IR embolization of left L2 [...] 11/03, 11/13 (heme following); patient is on [id number] (Mondays) schedule outpatient Plan: Holding Cytoxan 75 mg in setting of worsening thrombocytopenia Continue prednisone 60 mg with bactrim ppx Appreciate hematology and VM recs Plan is to start bivalrudin trial once platelets stabilize and bridge to coumadin - CAPRICE (acute kidney injury) (HCC) CAPRICE on CKD III, 2/2 contrast, now requiring dialysis First HD at [place] on 10/25 with tunneled dialysis catheter placement [...] this morning, access site for embolization at [place], no erythema or induration appreciated on exam, exquisitely TTP Groin study showed no signs of PSA, known AV fistula visualized with retrograde flow, vascular med aware- no further recs 10/28: pain less severe, no physical exam findings Repeat Leg DVT shows no pseudoaneurysm Likely due to nerve compression/RP hematoma causing compressive symtpoms S/p R groin drain placed at [place] on 10/24 s/p L groin drain placed at [facility] during embolization on 10/26 Plan: - Pain management-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 REIMBURSEMENT COUNSELOR as of transfer to [facility] - Will continue to wean dilaudid as pt tolerates, currently on Dilaudid 0.3 mg q4h PRN for pain, oxycodone PO PRN and gabapentin - IR consult for drain evaluation and removal on 11/05 MAINTENANCE: VTE PROPHYLAXIS:?will start bivalirudin most likely today NEED FOR ZUNIGA- Removed 11/14/17 LINES: Double lumen dialysis catheter 10/25/17 Dispo-?[facility] v. Acute rehabilitation center This note is not final until staffed by the attending physician and authenticated by responsible provider. SIGNATURE: Olga Reyez MD PATIENT NAME: Paloma Cannon DATE: November 17, 2017 TIME: 5:58 AM PAGER: [phone] RAF Terry ATTENDING NOTE: Chart reviewed, patient [...] thrombocytopenia despite mult platelet tranfusions + ENDPLATE 5/3 + 5/7+ DC?of Cytoxan (11/09) + Bactrim (11/12).. platelet [...] chair Ros Wayne MD FACP Attending, pager [phone] MAGNESIUM Collected: 11/17/2017 Status: F Source: [place] 4:07 AM [facility] REPOSITORY TYPE CODE TESTS RESULT OUT OF REFERENCE UNITS RANGE LAB MG 1.7-2.3 mg/dL Magnesium 1.9 Performed By: #### MG1, PHOS, BMP, CBC, B12 #### [facility] [address] [place] [address] PHOSPHORUS Collected: 11/17/2017 Status: F Source: [place] 4:07 AM [facility] REPOSITORY TYPE CODE TESTS RESULT OUT OF REFERENCE UNITS RANGE LAB PHOS 2.7-4.8 mg/dL Phosphorus 4.3 Performed By: #### MG1, PHOS, BMP, CBC, B12 #### [facility] [address] [place] [address] BASIC METABOLIC PANL Collected: 11/17/2017 Status: F Source: [place] 4:07 AM [facility] REPOSITORY TYPE CODE TESTS RESULT OUT OF REFERENCE UNITS RANGE LAB GLU 74-99 mg/dL High Glucose 120 Result Comment: The [place] Diabetes Association (ADA) provides guidance for cutoff [...] Standards of Medical Care in Diabetes 2016, [place] Diabetes Association. Diabetes Care. 2016.39(Suppl 1). LAB [...] #### MG1, PHOS, BMP, CBC, B12 #### [facility] [address] [place] [id number] CBC Collected: 11/17/2017 Status: F Source: [place] 4:07 [facility] REPOSITORY TYPE CODE TESTS [...] #### MG1, PHOS, BMP, CBC, B12 #### [facility] [address] [place], [place] [address] VITAMIN B12 Collected: 11/17/2017 Status: F Source: [place] 4:07 AM [facility] REPOSITORY TYPE CODE TESTS RESULT OUT OF REFERENCE UNITS RANGE LAB B12 232-1245 pg/mL Vitamin B12 272 Performed By: #### MG1, PHOS, BMP, CBC, B12 #### [facility] [address] [place], [place] [address] PROGRESS Observed: 11/16/2017 Status: COMPLETED Source: [place] 4:21 PM [facility] REPOSITORY HNO ID: [id number] Author: Ros Wayne Service: General Internal Medicine Author Type: Physician Type: Progress Notes Filed: 11/16/2017 9:58 PM Note Text: RAF Terry PROGRESS NOTE For questions regarding this patient today please page [phone] After 5 pm on weekdays and 3pm on weekends and holidays please page information technology security analyst pager [phone] SERVICE DATE: 11/16/2017 SERVICE TIME: 4:21 PM [...] IR emobolization of left L3 artery at [place] on 10/23 IR embolization of left L2 [...] 11/03, 11/13 (heme following); patient is on [id number] (Mondays) schedule outpatient Plan: Holding Cytoxan 75 mg in setting of worsening thrombocytopenia Continue prednisone 60 mg with bactrim ppx Appreciate hematology and VM recs Plan is to start bivalrudin trial once platelets stabilize and bridge to coumadin - CAPRICE (acute kidney injury) (HCC) CAPRICE on CKD III, 2/2 contrast, now requiring dialysis First HD at [place] on 10/25 with tunneled dialysis catheter placement [...] this morning, access site for embolization at [place], no erythema or induration appreciated on exam, exquisitely TTP Groin study showed no signs of PSA, known AV fistula visualized with retrograde flow, vascular med aware- no further recs 10/28: pain less severe, no physical exam findings Repeat Leg DVT shows no pseudoaneurysm Likely due to nerve compression/RP hematoma causing compressive symtpoms S/p R groin drain placed at [place] on 10/24 s/p L groin drain placed at [facility] during embolization on 10/26 Plan: - Pain management-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 REIMBURSEMENT COUNSELOR as of transfer to [facility] - Will continue to wean dilaudid as [...] November 16, 2017 TIME: 4:21 PM PAGER: [phone] RAF Terry ATTENDING NOTE: Appreciate HEME team [...] thrombocytopenia despite mult platelet tranfusions + ENDPLATE 5/ + 11/13+ DC of Cytoxan (11/09) + [...] qAM Ros Wayne MD FACP Attending, pager [phone] [facility] Observed: 11/16/2017 Status: COMPLETED Source: [place] 2:45 PM [facility] [place] REPOSITORY HNO ID: [id number] Author: Kayla Levin (Therapist), GINA Service: Music [...] Listening Type: Live Response Before After Pain 02/16 (Unable to obtain. See note.) Anxiety 5/10 [...] to music Music Used: You Are My [place] Style of Music: Traditional Family Present: No [...] Will continue to follow. SIGNATURE: Kayla Levin [facility] PATIENT NAME: Paloma Cannon DATE: November 17, 2017 TIME: 8:59 AM PAGER/CONTACT #: [phone] [facility] Observed: 11/16/2017 Status: COMPLETED Source: [place] 2:38 PM [facility] REPOSITORY HNO ID: [id number] Author: Allie Baig (Rn), RN Service: Wound/Ostomy [...] WO Nursing - Please place consult via [employer]. Thank you. (M-F: [phone]; Weekends AND Holidays: [phone]). THERAPY NT Observed: 11/16/2017 Status: COMPLETED Source: [place] 2:06 PM [facility] REPOSITORY HNO ID: [id number] Author: Tamiko Son (Pt) Service: Physical Therapy Author Type: Physical Therapist Type: Therapy (PT/OT/Speech/Resp) Filed: 11/16/2017 2:12 PM Note Text: Physical Therapy Wound/Lymph Treatment SERVICE DATE: 11/16/2017 SERVICE TIME: 0923 to 1004 ROOM: [place] [address] Recommended Discharge Disposition Comments: will require further [...] Patient TREATMENT INTERVENTIONS: Interventions Provided: Manual Therapy (37567) Manual Therapy (04627) Treatment Minutes: 41 3 units Skilled Intervention: [...] 16, 2017 TIME: 2:06 PM PAGER/CONTACT #: [phone] THERAPY NT Observed: 11/16/2017 Status: COMPLETED Source: [place] 1:37 PM [facility] REPOSITORY HNO ID: [id number] Author: Zahra Burks ([employer]) Service: Occupational Therapy Author Type: Superintendent Menagerie Type: Therapy (PT/OT/Speech/Resp) Filed: 11/16/2017 1:44 PM Note Text: Attestation signed by Yue Uriostegui at 11/16/2017 3:13 PM I reviewed and agree with the documentation corresponding to this therapy visit. SIGNATURE: JERMAINE Maldonado/L DATE: November 16, 2017 TIME: 3:13 PM Occupational Therapy Treatment SERVICE DATE: 11/16/2017 SERVICE TIME: 1141 to 1234 ROOM: H[facility] Recommended Discharge Disposition: Acute Rehab [...] daily living (ADL) Interventions Provided: Therapeutic Exercise (91255);Therapeutic Activity (87863);Self Longterm Management (98149) Therapeutic Exercise (43282) Treatment Minutes: 28 2 units Skilled Intervention(s): [...] , D1 flexion/extension, D2 flexion/extension. Therapeutic Activity (45424) Treatment Minutes: 10 1 unit Skilled Intervention(s): Educated on walker safety and proper hand placement during sit<>stand transfers. Pt required mod A for elevated surface and max A for standard surface. Educated on AR vs SNF and therapist d/c recommendations. Self Longterm Management (04979) Treatment Minutes: 15 1 unit Skilled Intervention(s): [...] Self Care Current Status (G8987): CK (11/16/17 114) Self Care Goal Status (G8988): CJ (11/16/17 [...] November 16, 2017 TIME: 1:37 PM PAGER: [phone] CBC Collected: 11/16/2017 Status: F Source: [place] 5:24 AM [facility] REPOSITORY TYPE CODE TESTS RESULT OUT [...] By: #### CBC, MG1, PHOS, BMP #### [facility] [address] [place], [place] [address] MAGNESIUM Collected: 11/16/2017 Status: F Source: [place] 5:24 AM [facility] REPOSITORY TYPE CODE TESTS RESULT OUT OF REFERENCE UNITS RANGE LAB MG 1.7-2.3 mg/dL Magnesium 2.0 Performed By: #### CBC, MG1, PHOS, BMP #### [facility] [address] [place], [place] [address] PHOSPHORUS Collected: 11/16/2017 Status: F Source: [place] 5:24 AM [facility] REPOSITORY TYPE CODE TESTS RESULT OUT OF REFERENCE UNITS RANGE LAB PHOS 2.7-4.8 mg/dL Phosphorus 4.4 Performed By: #### CBC, MG1, PHOS, BMP #### [facility] [address] [place], [place] [address] BASIC METABOLIC PANL Collected: 11/16/2017 Status: F Source: [place] 5:24 AM [facility] REPOSITORY TYPE CODE TESTS RESULT OUT OF REFERENCE UNITS RANGE LAB GLU 74-99 mg/dL Low Glucose 73 Result Comment: The [place] Diabetes Association (ADA) provides guidance for cutoff [...] Standards of Medical Care in Diabetes 2016, [place] Diabetes [employer]. Diabetes Care. 2016.39(Suppl 1). LAB [...] By: #### CBC, MG1, PHOS, BMP #### [facility] [address] [place], [place] [address] TYPE AND SCREEN Collected: 11/16/2017 Status: F Source: [place] 5:24 AM [facility] REPOSITORY TYPE CODE TESTS RESULT OUT OF REFERENCE UNITS RANGE LAB %ABR B ABO/RH(D) POSITIVE LAB % Antibody POS Screen Performed By: #### TSCR #### [facility] [address] [place], [place] [address] CONSULT PROG Observed: 11/15/2017 Status: COMPLETED Source: [place] 4:47 PM [facility] REPOSITORY HNO ID: [id number] Author: Luz Maria Wolfe) Service: Hematology/Oncology Author [...] IR guided intervention (initially on 10/23 at [facility] and 10/26 here at [facility]. ? # Antiphospholipid antibody syndrome -recent?home [...] prohibits -sp IR intevention on 10/23 and 4/19? -Hemoglobin has been stable, would decrease transfusion [...] adequate for anticoagulation, we can discuss with [facility] medicine team starting bivalirudin with bridge to coumadin Luz Maria Wolfe MD November 15, 2017 5:11 PM CASE MANAGEM Observed: 11/15/2017 Status: COMPLETED Source: [place] 3:20 PM [facility] REPOSITORY HNO ID: [id number] Author: Jacinta Olmedo (Rn), RN Service: Care Management Author Type: Registered Nurse Type: Care Mgt Progress Note Filed: 11/15/2017 3:22 PM Note Text: CARE MANAGEMENT PROGRESS NOTE SERVICE DATE: 11/15/2017 SERVICE TIME: 3:20 PM LOS: 21 days Needs Prior to Discharge: Accepting Facility;Bed Availability;Insurance Authorization;Discharge Transportation Per primary team, earliest dc next week Awaiting PMANDR.Per Gissell, Main [place] Liason (p) [phone] unable to accept. Referal sent to Peyman ISBELL (via Acute rehab [facility] as central number (p) [phone] and f) [phone]) for review at direction of [place] marla (pt agreeable) IF accepted, Peyman Barker would request pt to receive aphersis in house prior to dc. Primary team informed and will try to accommodate. Per , at dc pt will need apheresis q 2 weeks indefinitely and close daily lab montoring of blood status for possible need for transfusion . Current on 2LO2/nc, has home O2 2L 02 via [employer]. [facility] is Elsa Matos (p) - updated on dc plan yestereday. CM to continue to follow SIGNATURE: Jacinta Olmedo RN PATIENT NAME: Paloma Cannon DATE: November 15, 2017 TIME: 3:20 PM PAGER/CONTACT #: [phone] NURSING PROG Observed: 11/15/2017 Status: COMPLETED Source: [place] 2:18 PM [facility] REPOSITORY HNO ID: [id number] Author: Zoila Cullen (Rn), RN Service: Nursing Author Type: Registered Nurse Type: Nursing Progress Note Filed: 11/15/2017 2:19 PM Note Text: Nursing Progress Note Patient Name: Paloma Cannon [address] Daily Note: Pt AANDOx3. VSS. Pt c/o back pain, treated per sep. Pt up with two assist and walker. Pt down to cafeteria with and in wheelchair. Skin care protocol in place. Fall/safety precautions in place. This note was completed by: Zoila Cullen RN PROGRESS Observed: 11/15/2017 Status: COMPLETED Source: [place] 2:04 PM [facility] REPOSITORY HNO ID: [id number] Author: Ros Wayne Service: General Internal Medicine Author Type: Physician Type: Progress Notes Filed: 11/15/2017 10:10 PM Note Text: RAF Terry PROGRESS NOTE For questions regarding this patient today please page [phone] After 5 pm on weekdays and 3pm on weekends and holidays please page information technology security analyst pager [phone] SERVICE DATE: 11/15/2017 SERVICE TIME: 2:04 PM INTERVAL HISTORY: - No events overnight - BP [id number], HR 70-100, on 2L NC - Uoutput [...] IR emobolization of left L3 artery at [place] on 10/23 IR embolization of left L2 [...] 11/03, 11/13 (heme following); patient is on [id number] (Mondays) schedule outpatient Plan: Holding Cytoxan 75 mg in setting of worsening thrombocytopenia Continue prednisone 60 mg with bactrim ppx Appreciate hematology and VM recs Plan is to start bivalrudin trial once platelets stabilize and bridge to coumadin - CAPRICE (acute kidney injury) (HCC) CAPRICE on CKD III, 2/2 contrast, now requiring dialysis First HD at [place] on 10/25 with tunneled dialysis catheter placement [...] this morning, access site for embolization at [place], no erythema or induration appreciated on exam, exquisitely TTP Groin study showed no signs of PSA, known AV fistula visualized with retrograde flow, vascular med aware- no further recs 10/28: pain less severe, no physical exam findings Repeat Leg DVT shows no pseudoaneurysm Likely due to nerve compression/RP hematoma causing compressive symtpoms S/p R groin drain placed at [place] on 10/24 s/p L groin drain placed at [facility] during embolization on 10/26 Plan: - Pain management-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 REIMBURSEMENT COUNSELOR as of transfer to [facility] - Will continue to wean dilaudid as [...] November 15, 2017 TIME: 2:04 PM PAGER: [phone] RAF Terry ATTENDING NOTE: Chart reviewed, patient [...] activity Ros Wayne MD FACP Attending, pager [phone] CONSULT Observed: 11/15/2017 Status: COMPLETED Source: [place] 1:07 PM [facility] REPOSITORY HNO ID: [id number] Author: Viraj Starr Service: Physical Medicine AND Rehabilitation Author Type: Physician Type: Consults Filed: 11/15/2017 4:35 PM Note Text: HOSPITAL INITIAL CONSULT: PMANDR SERVICE DATE: 11/15/2017 SERVICE TIME: 415pm REASON FOR CONSULTATION: assessment of rehab service needs Subjective PATIENT'S HOME ADDRESS: [address] [place] [id number] HISTORY: Paloma Cannon is a 27 year old female whose current [facility] admission dates to 10/25/2017. History notes that she was admitted on that date from outside hospital. Ms. Cannon is being seen at the request of Dr. Wayne, the acute hospital physician of record. She carries the rehabilitation diagnosis of debility. 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 [facility]. She underwent urgent [...] Recent Labs 11/15/17 0601 11/14/17 0426 11/13/17 0811/12/17 0511/11/17 0335 11/10/17 03311/09/17 0549 GLUC 74 79 [...] Patient most likely will be appropriate for intermediate facility in future (moderate exercise program 1-2 [...] #: NUTRITION Observed: 11/15/2017 Status: COMPLETED Source: [place] 12:28 PM [facility] [place] REPOSITORY O ID: [id number] Author: Anahi Mai (Diet-T) Service: Nutrition Therapy Author Type: Protective Signal Installer Helper Type: Nutrition Filed: 11/15/2017 12:29 PM [...] unit SIGNATURE: MELVINA Ellison PATIENT NAME: Paloma Cnanon DATE: November 15, 2017 TIME: 12:28 PM PAGER: [phone] PLAN OF CARE Observed: 11/15/2017 Status: COMPLETED Source: [place] 11:48 AM [facility] REPOSITORY HNO ID: [id number] Author: Hodan SanchezElias Borges UrzedaJulia Whitney Service: (none) Author Type: (none) Type: Plan of Care Filed: 11/15/2017 11:48 AM Note Text: Pharmacy Discharge Medication Service: This patient has elected to receive their discharge prescriptions through the [facility] Bedside Prescription Delivery program. The prescriptions are currently being processed. A follow-up note will be entered once the prescriptions have been filled and delivered to the patient. Please contact me with any questions or updates to the patient's discharge medications. Julia Pettit (Elias Borges Urzeda) DCT Contact Info: [phone] PLAN OF CARE Observed: 11/15/2017 Status: COMPLETED Source: [place] 11:47 AM [facility] REPOSITORY HNO ID: [id number] Author: Hodan SanchezElias Borges UrzedaJulia Whitney Service: (none) Author Type: (none) Type: Plan of Care Filed: 11/15/2017 11:48 AM Note Text: FAT PURIFICATION WORKER BEDSIDE DELIVERY SURVEY 1. Patient to use [facility] Bedside Delivery - YES 2. If fax, patient would like us to fax prescriptions to Pharmacy of choice a. Pharmacy: b. Location: c. Phone: 3. Insurance card on file - YES 4. Credit card for payment - N/A No prescriptions yet. Please page [phone] upon discharge. CBC Collected: 11/15/2017 Status: F Source: [place] 6:01 AM [facility] REPOSITORY TYPE CODE TESTS RESULT OUT [...] By: #### CBC, MG1, PHOS, BMP #### [facility] [address] [place] [address] MAGNESIUM Collected: 11/15/2017 Status: F Source: [place] 6:01 [facility] REPOSITORY TYPE CODE TESTS RESULT OUT OF REFERENCE UNITS RANGE LAB MG 1.7-2.3 mg/dL Magnesium 2.1 Performed By: #### CBC, MG1, PHOS, BMP #### [facility] [address] [place] [address] PHOSPHORUS Collected: 11/15/2017 Status: F Source: [place] 6:01 [facility] REPOSITORY TYPE CODE TESTS RESULT OUT OF REFERENCE UNITS RANGE LAB PHOS 2.7-4.8 mg/dL Phosphorus 3.9 Performed By: #### CBC, MG1, PHOS, BMP #### [place] [address] BASIC METABOLIC PANL Collected: 11/15/2017 Status: F Source: [place] 6:01 [facility] REPOSITORY TYPE CODE TESTS RESULT OUT OF REFERENCE UNITS RANGE LAB GLU 74-99 mg/dL Glucose 74 Result Comment: The [place] Diabetes Association (ADA) provides guidance for cutoff [...] Standards of Medical Care in Diabetes 2016, [place] Diabetes [employer]. Diabetes Care. 2016.39(Suppl 1). LAB [...] By: #### CBC, MG1, PHOS, BMP #### [facility] [address] [place] [address] NURSING PROG Observed: 11/14/2017 Status: COMPLETED Source: [place] 6:05 PM [facility] REPOSITORY HNO ID: [id number] Author: Eduardo Yates (Rn), RN Service: Nursing [...] RN CONSULT Observed: 11/14/2017 Status: COMPLETED Source: [place] 4:46 PM [facility] REPOSITORY HNO ID: [id number] Author: Michelle Garcia ([employer]) Service: Physical Medicine AND Rehabilitation Author Type: Nurse Practitioner Type: Consults Filed: 11/14/2017 4:46 PM Note Text: PMANDR consult received today. Chart reviewed. Evaluation with [facility] staff to follow tomorrow. Thank you for the consult. Please call with any questions. Michelle Garcia APRN.[facility] Physical Medicine and Rehabilitation pager [phone] CONSULT PROG Observed: 11/14/2017 Status: COMPLETED Source: [place] 4:33 PM [facility] REPOSITORY HNO ID: [id number] Author: Justina Pollard (Cy) Service: Hematology Author Type: Physician Drywall Sander Type: Consult Progress Note Filed: 11/14/2017 4:37 [...] IR guided intervention (initially on 10/23 at [facility] and 10/26 here at [facility]. ? # Antiphospholipid antibody syndrome -recent?home [...] November 14, 2017 TIME: 4:33 PM PAGER: [phone] THERAPY NT Observed: 11/14/2017 Status: COMPLETED Source: [place] 4:06 PM [facility] REPOSITORY HNO ID: [id number] Author: Indra Woods (Natural Resource Manager) Service: Physical Therapy Author Type: Road Grader Type: Therapy (PT/OT/Speech/Resp) Filed: 11/14/2017 4:19 PM Note Text: Attestation signed by Brenda Meraz (Pt) at 11/15/2017 7:31 AM I reviewed and agree with the assessment as documented above. SIGNATURE: Brenda Meraz PT DATE: November 15, 2017 TIME: 7:31 AM Physical Therapy Treatment SERVICE DATE: 11/14/2017 SERVICE TIME: 1510 to 1550 ROOM: [place] [address] Recommended Discharge Disposition: Acute Rehab Justification For [...] Diagnosis: Reduced mobility-other Interventions Provided: Therapeutic Activity (99673);Therapeutic Exercise (33461) Therapeutic Exercise (71644) Treatment Minutes: 15 1 unit Skilled Intervention(s): Patient instructed in and performed seated exercises for 20 reps: ankle pumps, LAQ, marching, hip abduction, heelslides with assist for minimal tactile and verbal cues for pacing and proper technique. Patient required rest breaks between sets due to fatigue. Educated patient in reasoning for each exercise. Patient stated performing supine exercise in bed everyday. Therapeutic Activity (01242) Treatment Minutes: 23 2 units Skilled Intervention(s): [...] 14, 2017 TIME: 4:06 PM PAGER/CONTACT #: [phone] THERAPY NT Observed: 11/14/2017 Status: COMPLETED Source: [place] 3:33 PM [facility] REPOSITORY O ID: [id number] Author: Zahra Burks (Go-L) Service: Occupational Therapy Author Type: Superintendent Menagerie Type: Therapy (PT/OT/Speech/Resp) Filed: 11/14/2017 3:39 PM Note Text: Attestation signed by Yue Uriostegui at 11/14/2017 3:57 PM I reviewed and agree with the documentation corresponding to this therapy visit. SIGNATURE: JERMAINE Maldonado/Allie DATE: November 14, 2017 TIME: 3:57 PM Occupational Therapy Treatment SERVICE DATE: 11/14/2017 SERVICE TIME: 1359 to 1446 ROOM: [place] [address] Recommended Discharge Disposition: Acute Rehab Justification For [...] daily living (ADL) Interventions Provided: Therapeutic Exercise (35622);Therapeutic Activity (78249);Self Longterm Management (58707) Therapeutic Exercise (70804) Treatment Minutes: 17 1 unit Skilled Intervention(s): [...] abd/adduction, chest press, elbow flexion/extension Therapeutic Activity (97311) Treatment Minutes: 15 1 unit Skilled Intervention(s): Instructed patient in supine to sit pushing with upper extremities to sit up Instructed patient in sit to supine using safe, effective technique Educated on acute rehab OT treatments. Self Longterm Management (53385) Treatment Minutes: 15 1 unit Skilled Intervention(s): Instructed pt on safe toilet transfer to/from [facility] using proper hand placement for safety. Provided [...] November 14, 2017 TIME: 3:34 PM PAGER: [phone] CBC Collected: 11/14/2017 Status: F Source: [place] 1:15 PM [facility] REPOSITORY TYPE CODE TESTS [...] Absolute nRBC Performed By: #### CBC #### [facility] [address] [place] [id number] CASE MANAGEM Observed: 11/14/2017 Status: COMPLETED Source: [place] 11:33 AM [facility] REPOSITORY HNO ID: [id number] Author: Jacinta Olmedo (Rn), RN Service: Care Management Author Type: Registered Nurse Type: Care Mgt Progress Note Filed: 11/14/2017 11:38 AM Note Text: CARE MANAGEMENT PROGRESS NOTE SERVICE DATE: 11/14/2017 SERVICE TIME: 11:34 AM LOS: 20 days Needs Prior to Discharge: Accepting Facility;Bed Availability;Insurance Authorization;Discharge Transportation Earliest dc next week Awaiting PMANDR. Per Gissell [facility] Marla (p) [phone] M80 unable to accept. Referal sent to Peyman ISBELL for review at direction of AKILAH banks (pt agreeable) If accepted, Peyman jin may [...] 14, 2017 TIME: 11:34 AM PAGER/CONTACT #: [phone] THERAPY NT Observed: 11/14/2017 Status: COMPLETED Source: [place] 11:17 AM [facility] REPOSITORY HNO ID: [id number] Author: Indra Woods (Natural Resource Manager) Service: Physical Therapy Author Type: Road Grader Type: Therapy (PT/OT/Speech/Resp) Filed: 11/14/2017 11:23 AM Note Text: Attestation signed by Brenda Meraz (Pt) at 11/14/2017 12:49 PM I reviewed and agree with the assessment as documented above. SIGNATURE: Brenda Meraz, PT DATE: November 14, 2017 TIME: 12:48 PM PHYSICAL THERAPY MISSED VISIT SERVICE DATE: 11/14/2017 SERVICE TIME: 1116 to 1116 ROOM: [place] [address] Attempted Treatment. Patient not seen due to getting blood platelets in 10 mins. Will attempts again as able. SIGNATURE: Indra Woods PTA PATIENT NAME: Paloma Cannon DATE: November 14, 2017 TIME: 11:17 AM PAGER/CONTACT #: [phone] CONSULT Observed: 11/14/2017 Status: COMPLETED Source: [place] 11:05 AM [facility] REPOSITORY [facility] ID: [id number] Author: Alicia Carmen ([facility]) Service: Nursing Author Type: Nurse Specialist Type: Consults Filed: 11/14/2017 2:16 PM Note Text: Paloma Cannon [phone] Reason for Consult: Routine CLABSI Prevention Rounding [...] Hand Hygiene, dressing integrity Rounding performed with: JFEF Clark, Shreya Whitehead, BIOCHEMICAL ENGINEER, Darrell Ewing, Machine Hoop Maker, AND Clark Nichols [place] Alicia Carmen, MSN, NIGHT PATROL INSPECTOR-[facility] [phone] 10 Minutes Thank you for including me in the care of this patient and please feel free to re-consult me if necessary. PROGRESS Observed: 11/14/2017 Status: COMPLETED Source: [place] 6:00 AM [facility] REPOSITORY HNO ID: [id number] Author: Ros Wayne Service: General Internal Medicine Author Type: Physician Type: Progress Notes Filed: 11/14/2017 5:31 PM Note Text: RAF Terry PROGRESS NOTE For questions regarding this patient today please page [phone] After 5 pm on weekdays and 3pm on weekends and holidays please page information technology security analyst pager [phone] SERVICE DATE: 11/14/2017 SERVICE TIME: 6:00 AM [...] IR emobolization of left L3 artery at [place] on 10/23 IR embolization of left L2 [...] hematology and recs Received Apheresis on 11/03, next session tentatively planned for 10/18 (heme following) Plan is to start bivalrudin trial once platelets stabilize and bridge to coumadin - CAPRICE (acute kidney injury) (HCC) CAPRICE on CKD III, 2/2 contrast, now requiring dialysis First HD at [place] on 10/25 with tunneled dialysis catheter placement [...] this morning, access site for embolization at [place], no erythema or induration appreciated on exam, exquisitely TTP Groin study showed no signs of PSA, known AV fistula visualized with retrograde flow, vascular med aware- no further recs 10/28: pain less severe, no physical exam findings Repeat Leg DVT shows no pseudoaneurysm Likely due to nerve compression/RP hematoma causing compressive symtpoms S/p R groin drain placed at [place] on 10/24 s/p L groin drain placed at [facility] during embolization on 10/26 Plan: - Pain management-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 REIMBURSEMENT COUNSELOR as of transfer to [facility] - Will continue to wean dilaudid as [...] November 14, 2017 TIME: 6:00 AM PAGER: [phone] RAF Terry ATTENDING NOTE: Chart reviewed, patient [...] bridge Ros Wayne MD FACP Attending, pager [phone] TYPE AND SCREEN Collected: 11/14/2017 Status: F Source: [place] 4:30 AM [facility] REPOSITORY TYPE CODE TESTS RESULT OUT OF REFERENCE UNITS RANGE LAB %ABR B ABO/RH(D) POSITIVE LAB % Antibody POS Screen Performed By: #### TSCR #### [facility] [address] [place], [place] [address] CBC Collected: 11/14/2017 Status: F Source: [place] 4:26 AM [facility] REPOSITORY TYPE CODE TESTS RESULT OUT [...] By: #### CBC, MG1, PHOS, BMP #### [address] [address] MAGNESIUM Collected: 11/14/2017 Status: F Source: [place] 4:26 AM [facility] REPOSITORY TYPE CODE TESTS RESULT OUT OF REFERENCE UNITS RANGE LAB MG 1.7-2.3 mg/dL Magnesium 1.8 Performed By: #### CBC, MG1, PHOS, BMP #### [facility] [place], [place] [address] PHOSPHORUS Collected: 11/14/2017 Status: F Source: [place] 4:26 AM [facility] REPOSITORY TYPE CODE TESTS RESULT OUT OF REFERENCE UNITS RANGE LAB PHOS 2.7-4.8 mg/dL Phosphorus 4.0 Performed By: #### CBC, MG1, PHOS, BMP #### [facility] [address] [place], [place] [address] BASIC METABOLIC PANL Collected: 11/14/2017 Status: F Source: [place] 4:26 AM [facility] REPOSITORY TYPE CODE TESTS RESULT OUT OF REFERENCE UNITS RANGE LAB GLU 74-99 mg/dL Glucose 79 Result Comment: The [place] Diabetes Association (ADA) provides guidance for cutoff [...] Standards of Medical Care in Diabetes 2016, [place] [employer]. Diabetes Care. 2016.39(Suppl 1). LAB [...] By: #### CBC, MG1, PHOS, BMP #### [facility] [address] [place], [place] [address] NURSING PROG Observed: 11/14/2017 Status: COMPLETED Source: [place] 2:54 AM [facility] REPOSITORY HNO ID: [id number] Author: Mark Dias (Rn), RN Service: Nursing [...] ALLIED HEALTH Observed: 11/13/2017 Status: COMPLETED Source: [place] 3:03 PM [facility] REPOSITORY HNO ID: [id number] Author: Dary BanksRn), RN Service: Wound/Ostomy Author Type: Registered Nurse [...] nursing staff. Pouching System Removed: Per last [facility] nurses note - 1. Filled in pannus crease at 3 and 9 o'clock with Stomahesive paste, then, applied Stomahesive wedges x2 each side. Caulked seams with paste. 2. Applied 1/4 piece Hollihesive washer (inner radial slits) direclty onto skin around site. Caulked inner aperture with Stomahesive paste. 3. Kyle Premier Urostomy pouch with a Kyle Adapt oval convex ring #[id number] around aperture and Stomahesive paste around aperture [...] excess powder. Pouching System: Applied: Coloplast SenSura [place] Flex flat cut to fit Barrier (3/8 to 1 7/8) (#73565) (red) opening cut off center, center opening covered with Hollihesive barrier, and Coloplast SenSura [place] Flex High Output transparent filtered pouch (#61681) (red). Pouch connected to gravity drainage system with ConvaTec marcus adapter and Hy tape. Wear Time Goal: 3-5 days. Comments: Skin is very fragile and thin with scattered bruising due to chronic steroid treatment. Supplies Provided: 2 flanges and 2 high output pouches, 8 remover wipes ? Time Increment: 1 hour ? Dary JOHNSONN RN CWOCN PROCEDURE Observed: 11/13/2017 Status: COMPLETED Source: [place] 1:24 PM [facility] [place] REPOSITORY HNO ID: [id number] Author: Lisseth Claudio MD Service: Apheresis Author [...] Completed by Apheresis Nurse: Angella Ortiz RN [facility] STAFF PHYSICIAN NOTE OF PERSONAL INVOLVEMENT IN [...] MD November 13, 2017 4:45 PM Pager: [phone] CONSULT PROG Observed: 11/13/2017 Status: COMPLETED Source: [place] 12:44 PM [facility] REPOSITORY HNO ID: [id number] Author: Justina Pollard (Cy) Service: Hematology Author Type: Physician Drywall Sander Type: Consult Progress Note Filed: 11/13/2017 3:14 PM Note Text: CONSULT PROGRESS NOTE SERVICE DATE: 11/13/2017 CONSULTING SERVICE: Hematology Subjective INTERVAL HPI: No acute events overnight Remains thrombocytopenic, received platelet yesterday for platelet count in the PLEX is due today Current hospital medications: [...] IR guided intervention (initially on 10/23 at [facility] and 10/26 here at [facility]. ? # Antiphospholipid antibody syndrome -recent [...] November 13, 2017 TIME: 12:45 PM PAGER: [phone] PROGRESS Observed: 11/13/2017 Status: COMPLETED Source: [place] 12:11 PM [facility] [place] REPOSITORY HNO ID: [id number] Author: Ros Wayne Service: General Internal Medicine Author Type: Physician Type: Progress Notes Filed: 11/13/2017 2:46 PM Note Text: RAF Terry PROGRESS NOTE For questions regarding this patient today please page [phone] After 5 pm on weekdays and 3pm on weekends and holidays please page information technology security analyst pager [phone] SERVICE DATE: 11/13/2017 SERVICE TIME: 12:12 PM [...] IR emobolization of left L3 artery at [place] on 10/23 IR embolization of left L2 [...] contrast, now requiring dialysis First HD at [place] on 10/25 with tunneled dialysis catheter placement [...] this morning, access site for embolization at [place], no erythema or induration appreciated on exam, exquisitely TTP Groin study showed no signs of PSA, known AV fistula visualized with retrograde flow, vascular med aware- no further recs 10/28: pain less severe, no physical exam findings Repeat Leg DVT shows no pseudoaneurysm Likely due to nerve compression/RP hematoma causing compressive symtpoms S/p R groin drain placed at [place] on 10/24 s/p L groin drain placed at [facility] during embolization on 10/26 Plan: - Pain management-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 REIMBURSEMENT COUNSELOR as of transfer to [facility] - Will continue to wean dilaudid as pt tolerates, currently on Dilaudid 0.2 mg q4h PRN for pain, oxycodone PO PRN and gabapentin - IR consult for drain evaluation and removal on 11/05 MAINTENANCE: VTE PROPHYLAXIS: IPCD NEED FOR ZUNIGA- Yes 10/23/17 LINES: Double lumen dialysis catheter [facility]17 [facility] cyril This note is not final until staffed by the attending physician and authenticated by responsible provider. SIGNATURE: Olga Reyez MD PATIENT NAME: Paloma Cannon DATE: November 13, 2017 TIME: 12:12 PM PAGER: [phone] RAF Terry ATTENDING NOTE: Chart reviewed, patient [...] bridge Ros Wayne MD FACP Attending, pager [phone] THERAPY NT Observed: 11/13/2017 Status: COMPLETED Source: [place] 10:52 AM [facility] REPOSITORY [facility] ID: [id number] Author: Indra Woods (Natural Resource Manager) Service: Physical Therapy Author Type: Road Grader Type: Therapy (PT/OT/Speech/Resp) Filed: 11/13/2017 11:04 AM Note Text: Attestation signed by Brenda Meraz (Pt) at 11/13/2017 1:01 PM I reviewed and agree with the assessment as documented above. SIGNATURE: Brenda Meraz PT DATE: November 13, 2017 TIME: 1:00 PM Physical Therapy Treatment SERVICE DATE: 11/13/2017 SERVICE TIME: 0933 to 1043 ROOM: [facility] Recommended Discharge Disposition: Acute Rehab [...] (generalized);Unsteadiness on feet Interventions Provided: Gait Training (95218);Therapeutic Activity (68110);Therapeutic Exercise (99225) Therapeutic Exercise (60352) Treatment Minutes: 23 2 units Skilled Intervention(s): Patient instructed in and performed supine exercises for 20?rep: AP, ?QS for 3 second hold, heelslides, SAQ, hip abduction; seated: 20 reps: LAQ, marching, hip abduction?with minimal?verbal and tactile cues for pacing and proper technique. Patient required AAROM for heelslides, hip abduction and marching. Educated patient in reasoning for each exercise. ? Therapeutic Activity (36831) Treatment Minutes: 28 2 units Skilled Intervention(s): [...] for lines and tubes management. Gait Training (66779) Treatment Minutes: 19 1 unit Skilled Intervention(s): [...] 13, 2017 TIME: 10:52 AM PAGER/CONTACT #: [phone] CBC Collected: 11/13/2017 Status: F Source: [place] 8:04 AM [facility] REPOSITORY TYPE CODE TESTS RESULT OUT [...] By: #### CBC, MG1, PHOS, BMP #### [facility] [address] [address] MAGNESIUM Collected: 11/13/2017 Status: F Source: [place] 8:04 [facility] REPOSITORY TYPE CODE TESTS RESULT OUT OF REFERENCE UNITS RANGE LAB MG 1.7-2.3 mg/dL Magnesium 2.1 Result Comment: Results may be falsely increased due to interference by hemolysis. Suggest reorder as clinically indicated. Performed By: #### CBC, MG1, PHOS, BMP #### [facility] [address] [place], [place] [address] PHOSPHORUS Collected: 11/13/2017 Status: F Source: [place] 8:04 AM [facility] REPOSITORY TYPE CODE TESTS RESULT OUT OF REFERENCE UNITS RANGE LAB PHOS 2.7-4.8 mg/dL Phosphorus 3.5 Result Comment: Results may be falsely increased due to interference by hemolysis. Suggest reorder as clinically indicated. Performed By: #### CBC, MG1, PHOS, BMP #### [facility] [address] [place], [place] [address] BASIC METABOLIC PANL Collected: 11/13/2017 Status: F Source: [place] 8:04 AM [facility] REPOSITORY TYPE CODE TESTS RESULT OUT OF REFERENCE UNITS RANGE LAB GLU 74-99 mg/dL Low Glucose 73 Result Comment: The [place] Diabetes Association (ADA) provides guidance for cutoff [...] Standards of Medical Care in Diabetes 2016, [place] [employer] Association. Diabetes Care. 2016.39(Suppl 1). LAB [...] By: #### CBC, MG1, PHOS, BMP #### [facility] [address] [place] [id number] NURSING PROG Observed: 11/12/2017 Status: COMPLETED Source: [place] 8:27 PM [facility] REPOSITORY HNO ID: [id number] Author: Mark DiasRn), RN Service: Nursing Author Type: Registered Nurse Type: Nursing Progress Note Filed: 11/13/2017 8:18 AM Note Text: Nursing Progress Note Patient Name: Paloma Cannon Patient Location: [id number] Daily Note: 2026 Medicated for c/o pain, see MAR. Was reassured. Safety measures continued. Siderails up x 2 to assist w/ bed mobility and fr support. Bed in lowest possible position, locked. Call light placed within pt's reach. Was reassured. 2230 Medicated for c/o pain, see MAR. 0600 Medicated Again for pain, see MAR. This note was completed by: Mark Dias RN PROGRESS Observed: 11/12/2017 Status: COMPLETED Source: [place] 7:47 PM [facility] REPOSITORY HNO ID: [id number] Author: Edel RomanRn), RN Service: Nursing Author Type: Registered Nurse Type: Progress Notes Filed: 11/12/2017 7:48 PM Note Text: Nursing Progress Note [employer] Compliance Director Assessment Note Patient Name: Paloma Cannon Patient [...] RN CBC Collected: 11/12/2017 Status: F Source: [place] 5:04 PM [facility] [place] REPOSITORY TYPE CODE TESTS RESULT OUT OF [...] Absolute nRBC Performed By: #### CBC #### [facility] [address] [place], [place] [address] ALLIED HEALTH Observed: 11/12/2017 Status: COMPLETED Source: [place] 2:52 PM [facility] REPOSITORY HNO ID: [id number] Author: Luci Hanson (Rn), RN Service: Wound/Ostomy [...] per nursing staff Current pouching system: Removed- Houston Hollihesive wedge at 3 and 9 o'clock; 2x2 Hollihesive washer, cut to 7/8 x 1 (inner radial slits), caulk seams with stomahesive paste, Kyle Premier Urostomy Pouch (outer radial slits), Adapt Oval Convex Ring ([id number] small), connected to gravity drainage, mefix tape. [...] Caulked inner aperture with Stomahesive paste. 3. [place] Premier Urostomy pouch with a Kyle Adapt oval convex ring #[id number] around aperture and Stomahesive paste around aperture of convex ring. 4. Mefix at 3 and 9 o'clock. Made a slit at area where left groin crease is. Wear Time: 3-7 days Time Increment: 45 minutes Luci STEVE, RN, CWOCN CITRATED PLT COUNT Collected: 11/12/2017 Status: F Source: [place] 8:52 AM [facility] REPOSITORY TYPE CODE TESTS RESULT OUT OF REFERENCE UNITS RANGE LAB PLTCIT 150-400 K/uL Low Citrated Plt 22 Count Result Comment: Result checked and verified No clot detected. Reviewed Sodium Citrate Sample. Performed By: #### CITPLT #### [facility] [address] [place], [place] [address] PROGRESS Observed: 11/12/2017 Status: COMPLETED Source: [place] 7:03 AM [facility] [place] REPOSITORY HNO ID: [id number] Author: Edson Mohr Service: General Internal Medicine Author Type: Physician Type: Progress Notes Filed: 11/12/2017 2:59 PM Note Text: DEPARTMENT OF INTERNAL MEDICINE: PROGRESS NOTE PRIMARY TEAM: RAF Terry Weekdays 7 am to 5 pm/Weekend 7 am to 3 pm: Page [phone] (Dayton Acuna) 5 pm to 7 am/Weekend 3 pm to 7 am: Coater Helper Pager [phone] PATIENT NAME: Paloma Cannon BRIEF PLAN FOR [...] IR emobolization of left L3 artery at [place] on 10/23 IR embolization of left L2 [...] days since last bleeding. (Hb stabilized around 4/25) Will consider AC once platelets are stable [...] contrast, now requiring dialysis First HD at [place] on 10/25 with tunneled dialysis catheter placement [...] this morning, access site for embolization at [place], no erythema or induration appreciated on exam, exquisitely TTP Groin study showed no signs of PSA, known AV fistula visualized with retrograde flow, vascular med aware- no further recs 10/28: pain less severe, no physical exam findings Repeat Leg DVT shows no pseudoaneurysm Likely due to nerve compression/RP hematoma causing compressive symtpoms S/p R groin bag placed at [place] on 10/24 s/p L groin bag placed at [facility] during embolization on 10/26 Plan: - Pain management-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 REIMBURSEMENT COUNSELOR as of transfer to [facility] - Will continue to wean dilaudid as pt tolerates, currently kept her on Dilaudid 0.2 mg q4h PRN for pain Lines: Apheresis Catheter: 10/25/2017 Zuniga Catheter: Present 10/23/2017 SIGNATURE: Dayton Acuna MD, PGY2 PAGER: [phone] DATE of SERVICE: November 12, 2017 TIME of SERVICE: 7:03 AM This note is not final until signed by a Staff Physician [facility] STAFF PHYSICIAN NOTE OF PERSONAL INVOLVEMENT IN [...] by PE/DVT, DAH , HIT 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 Recent admission for DAH. Discharged on ?fondaparinux?7.5mg daily? 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 requiring CUTTER FINISHER , volume overload, anemia and ?persistent thrombocytopenia, [...] PM CBC Collected: 11/12/2017 Status: F Source: [place] 5:18 AM [facility] REPOSITORY TYPE CODE TESTS RESULT OUT [...] By: #### CBC, MG1, PHOS, BMP #### [facility] [address] [place] [address] MAGNESIUM Collected: 11/12/2017 Status: F Source: [place] 5:18 AM [facility] REPOSITORY TYPE CODE TESTS RESULT OUT OF REFERENCE UNITS RANGE LAB MG 1.7-2.3 mg/dL Magnesium 1.8 Performed By: #### CBC, MG1, PHOS, BMP #### [facility] [address] [place] [address] PHOSPHORUS Collected: 11/12/2017 Status: F Source: [place] 5:18 AM [facility] REPOSITORY TYPE CODE TESTS RESULT OUT OF REFERENCE UNITS RANGE LAB PHOS 2.7-4.8 mg/dL Phosphorus 3.3 Performed By: #### CBC, MG1, PHOS, BMP #### [facility] [address] [address] BASIC METABOLIC PANL Collected: 11/12/2017 Status: F Source: [place] 5:18 AM [facility] REPOSITORY TYPE CODE TESTS RESULT OUT OF REFERENCE UNITS RANGE LAB GLU 74-99 mg/dL High Glucose 128 Result Comment: The [place] Diabetes Association (ADA) provides guidance for cutoff [...] Standards of Medical Care in Diabetes 2016, [place] Diabetes [employer]. Diabetes Care. 2016.39(Suppl 1). LAB [...] By: #### CBC, MG1, PHOS, BMP #### [facility] [address] [place], [place] [address] CONSULT PROG Observed: 11/11/2017 Status: COMPLETED Source: [place] 7:48 PM [facility] REPOSITORY HNO ID: [id number] Author: Luz Maria Wolfe) Service: Hematology/Oncology Author [...] IR guided intervention (initially on 10/23 at [facility] and 10/26 here at [facility]. ? # Antiphospholipid antibody syndrome -recent [...] PM CBC Collected: 11/11/2017 Status: F Source: [place] 3:17 PM [facility] REPOSITORY TYPE CODE TESTS RESULT OUT [...] Absolute nRBC Performed By: #### CBC #### [facility] [employer], [place] [address] TYPE AND SCREEN Collected: 11/11/2017 Status: F Source: [place] 9:47 AM [facility] REPOSITORY TYPE CODE TESTS RESULT OUT OF REFERENCE UNITS RANGE LAB %ABR B ABO/RH(D) POSITIVE LAB % Antibody POS Screen Performed By: #### TSCR #### [facility] [address] [place], [place] [address] PROGRESS Observed: 11/11/2017 Status: COMPLETED Source: [place] 6:53 AM [facility] REPOSITORY HNO ID: [id number] Author: Edson Mohr Service: General Internal Medicine Author Type: Physician Type: Progress Notes Filed: 11/11/2017 12:07 PM Note Text: RAF Terry PROGRESS NOTE For questions regarding this patient today please page [phone] After 5 pm on weekdays and 3pm on weekends and holidays please page information technology security analyst pager [phone] SERVICE DATE: 11/11/2017 SERVICE TIME: 6:53 AM [...] IR emobolization of left L3 artery at [place] on 10/23 IR embolization of left L2 [...] contrast, now requiring dialysis First HD at [place] on 10/25 with tunneled dialysis catheter placement [...] this morning, access site for embolization at [place], no erythema or induration appreciated on exam, exquisitely TTP Groin study showed no signs of PSA, known AV fistula visualized with retrograde flow, vascular med aware- no further recs 10/28: pain less severe, no physical exam findings Repeat Leg DVT shows no pseudoaneurysm Likely due to nerve compression/RP hematoma causing compressive symtpoms S/p R groin drain placed at [place] on 10/24 s/p L groin drain placed at [facility] during embolization on 10/26 Plan: - Pain management-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 REIMBURSEMENT COUNSELOR as of transfer to [facility] - Will continue to wean dilaudid as [...] November 11, 2017 TIME: 6:53 AM PAGER: [phone] IM STAFF ADDENDUM -Raf Terry TEAM Patient [...] PM CBC Collected: 11/11/2017 Status: F Source: [place] 3:35 AM [facility] REPOSITORY TYPE CODE TESTS RESULT OUT [...] By: #### CBC, MG1, PHOS, BMP #### [facility] [address] [place] [id number] MAGNESIUM Collected: 11/11/2017 Status: F Source: [place] 3:35 AM [facility] REPOSITORY TYPE CODE TESTS RESULT OUT OF REFERENCE UNITS RANGE LAB MG 1.7-2.3 mg/dL Magnesium 1.8 Performed By: #### CBC, MG1, PHOS, BMP #### [facility] [address] [place], [place] [address] PHOSPHORUS Collected: 11/11/2017 Status: F Source: [place] 3:35 AM [facility] REPOSITORY TYPE CODE TESTS RESULT OUT OF REFERENCE UNITS RANGE LAB PHOS 2.7-4.8 mg/dL Phosphorus 3.4 Performed By: #### CBC, MG1, PHOS, BMP #### [facility] [address] [place] [id number] BASIC METABOLIC PANL Collected: 11/11/2017 Status: F Source: [place] 3:35 AM [facility] REPOSITORY TYPE CODE TESTS RESULT OUT OF REFERENCE UNITS RANGE LAB GLU 74-99 mg/dL High Glucose 123 Result Comment: The [place] Diabetes Association (ADA) provides guidance for cutoff [...] Standards of Medical Care in Diabetes 2016, [place] Diabetes Association. Diabetes Care. 2016.39(Suppl 1). LAB [...] By: #### CBC, MG1, PHOS, BMP #### [facility] [address] [place] [id number] CONSULT PROG Observed: 11/10/2017 Status: COMPLETED Source: [place] 6:44 PM [facility] REPOSITORY HNO ID: [id number] Author: Jefferson Willett (Durga) Service: Hematology/Oncology Author [...] IR guided intervention (initially on 10/23 at [facility] and 10/26 here at [facility]. ? # Antiphospholipid antibody syndrome -Current [...] NURSING PROG Observed: 11/10/2017 Status: COMPLETED Source: [place] 6:40 PM [facility] REPOSITORY HNO ID: [id number] Author: Grace Deal (Rn), RN Service: Nursing [...] maintained. PROGRESS Observed: 11/10/2017 Status: COMPLETED Source: [place] 4:06 PM [facility] REPOSITORY HNO ID: [id number] Author: Catherine Oh MD (Fel) Service: Nephrology Author Type: Fellow Type: Progress [...] Oh MD Fellow Nephrology and Hypertension Pager: [phone] November 10, 2017 4:06 PM THERAPY NT Observed: 11/10/2017 Status: COMPLETED Source: [place] 3:36 PM [facility] REPOSITORY HNO ID: [id number] Author: Zahra Burks (Go-L) Service: Occupational Therapy Author Type: Superintendent Menagerie Type: Therapy (PT/OT/Speech/Resp) Filed: 11/10/2017 3:40 PM Note Text: Occupational Therapy Treatment SERVICE DATE: 11/10/2017 SERVICE TIME: 1450 to 1516 ROOM: [place] [address] Recommended Discharge Disposition: Acute Rehab Justification For [...] daily living (ADL) Interventions Provided: Therapeutic Exercise (18267);Therapeutic Activity (20695) Therapeutic Exercise (16677) Treatment Minutes: 16 1 unit Skilled Intervention(s): [...] rolls, D1 flexion/extension, D2 flexion/extension. Therapeutic Activity (88974) Treatment Minutes: 10 1 unit Skilled Intervention(s): [...] November 10, 2017 TIME: 3:36 PM PAGER: [phone] XR CHEST 1V FRONTAL Observed: 11/10/2017 Status: F Source: [facility] 12:26 PM [facility] REPOSITORY * * *Final Report* * [...] pneumothorax identified. Cardiomediastinal silhouette: Stable cardiomediastinal silhouette. Glass Edger: PSCGaudencio Transcribe Date/Time: Nov 10 2017 2:02P Dictated by : ELSA SHIN MD This examination was interpreted and the report reviewed and electronically signed by: ELSA SHIN MD on Nov 10 2017 2:05PM EST [id number] THERAPY NT Observed: 11/10/2017 Status: COMPLETED Source: [place] 11:52 AM [facility] REPOSITORY HNO ID: [id number] Author: Indra Woods (Natural Resource Manager) Service: Physical Therapy Author Type: Road Grader Type: Therapy (PT/OT/Speech/Resp) Filed: 11/10/2017 12:07 PM Note Text: Attestation signed by Brenda Meraz (Pt) at 11/10/2017 1:03 PM I reviewed and agree with the assessment as documented above. SIGNATURE: Brenda Meraz PT DATE: November 10, 2017 TIME: 1:03 PM Physical Therapy Treatment SERVICE DATE: 11/10/2017 SERVICE TIME: 1023 to 1143 ROOM: [place] [address] Recommended Discharge Disposition: Acute Rehab Justification For [...] (generalized);Unsteadiness on feet Interventions Provided: Gait Training (18354);Therapeutic Activity (66483);Therapeutic Exercise (63996) Therapeutic Exercise (80618) Treatment Minutes: 25 2 units Skilled Intervention(s): Patient instructed in and performed supine exercises for 20 rep: AP, heelslides, SAQ, hip abduction; seated: 20 reps: AP and circles, LAQ, 10 reps: marching, hip abduction with minimal verbal and tactile cues for pacing and proper technique. Educated patient in reasoning for each exercise. Patient stated doing heel cord stretching with sheet. Therapeutic Activity (42066) Treatment Minutes: 15 1 unit Skilled Intervention(s): [...] stand for transfer with walker Gait Training (72551) Treatment Minutes: 30 2 units Skilled Intervention(s): [...] 10, 2017 TIME: 11:53 AM PAGER/CONTACT #: [phone] CASE MANAGEM Observed: 11/10/2017 Status: COMPLETED Source: [place] 9:49 AM [facility] REPOSITORY HNO ID: [id number] Author: Jacinta Olmedo (Rn), RN Service: Care Management Author Type: Registered Nurse Type: Care Mgt Progress Note Filed: 11/10/2017 1:51 PM Note Text: CARE MANAGEMENT PROGRESS NOTE SERVICE DATE: 11/10/2017 SERVICE TIME: 9:49 AM LOS: 16 days Needs Prior to Discharge: Accepting Facility;Insurance Authorization;Discharge Transportation Referal info manually faxed to [facility] AKILAH- sherrienShane Lei f) [phone] for review (pt first choice as it is very close to home) [facility] declines d/t pt complexity and accepting only short term patients. Per TEENA Borre[facility] [place] Marla Chaparro (p) [phone] may be able to accept. She [...] 10, 2017 TIME: 9:49 AM PAGER/CONTACT #: [phone] PROGRESS Observed: 11/10/2017 Status: COMPLETED Source: [place] 6:39 AM [facility] REPOSITORY HNO ID: [id number] Author: Edson Mohr Service: General Internal Medicine Author Type: Physician Type: Progress Notes Filed: 11/10/2017 1:37 PM Note Text: DEPARTMENT OF INTERNAL MEDICINE: PROGRESS NOTE PRIMARY TEAM: RAF Terry Weekdays 7 am to 5 pm/Weekend 7 am to 3 pm: Page [phone] (Day[place] Acuna) Weekdays 5 pm to 7 am/Weekend 3 pm to 7 am: Coater Helper Pager [phone] PATIENT NAME: Paloma Cannon BRIEF PLAN FOR [...] IR emobolization of left L3 artery at [place] on 10/23 IR embolization of left L2 [...] contrast, now requiring dialysis First HD at [place] on 10/25 with tunneled dialysis catheter placement [...] this morning, access site for embolization at [place], no erythema or induration appreciated on exam, exquisitely TTP Groin study showed no signs of PSA, known AV fistula visualized with retrograde flow, vascular med aware- no further recs 10/28: pain less severe, no physical exam findings Repeat Leg DVT shows no pseudoaneurysm Likely due to nerve compression/RP hematoma causing compressive symtpoms S/p R groin bag placed at [place] on 10/24 s/p L groin bag placed at [facility] during embolization on 10/26 Plan: - Pain management-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 REIMBURSEMENT COUNSELOR as of transfer to [facility] - Will continue to wean dilaudid as pt tolerates, currently kept her on Dilaudid 0.4 mg q4h PRN for pain ? SIGNATURE: Dayton Acuna MD, PGY2 PAGER: [phone] DATE of SERVICE: November 10, 2017 TIME of SERVICE: 6:39 PM This note is not final until signed by a Staff Physician [facility] STAFF PHYSICIAN NOTE OF PERSONAL INVOLVEMENT IN [...] guided intervention Course complicated with CAPRICE requiring CUTTER FINISHER , volume overload, thrombocytopenia, persistent anemia ? [...] ? CBC Collected: 11/10/2017 Status: F Source: [place] 3:36 AM [facility] REPOSITORY TYPE CODE TESTS RESULT OUT [...] By: #### CBC, MG1, PHOS, BMP #### [facility] [address] [place] [address] MAGNESIUM Collected: 11/10/2017 Status: F Source: [place] 3:36 AM [facility] REPOSITORY TYPE CODE TESTS RESULT OUT OF REFERENCE UNITS RANGE LAB MG 1.7-2.3 mg/dL Magnesium 1.9 Performed By: #### CBC, MG1, PHOS, BMP #### [facility] [address] [id number] PHOSPHORUS Collected: 11/10/2017 Status: F Source: [place] 3:36 AM [facility] REPOSITORY TYPE CODE TESTS RESULT OUT OF REFERENCE UNITS RANGE LAB PHOS 2.7-4.8 mg/dL Phosphorus 3.3 Performed By: #### CBC, MG1, PHOS, BMP #### [facility] [address] [id number] BASIC METABOLIC PANL Collected: 11/10/2017 Status: F Source: [place] 3:36 AM [facility] REPOSITORY TYPE CODE TESTS RESULT OUT OF REFERENCE UNITS RANGE LAB GLU 74-99 mg/dL Glucose 91 Result Comment: The [place] Diabetes Association (ADA) provides guidance for cutoff [...] Standards of Medical Care in Diabetes 2016, [place] Diabetes Association. Diabetes Care. 2016.39(Suppl 1). LAB [...] By: #### CBC, MG1, PHOS, BMP #### [facility] [address] [id number] CONSULT PROG Observed: 11/09/2017 Status: COMPLETED Source: [place] 4:35 PM [facility] REPOSITORY HNO ID: [id number] Author: Justina Pollard (Cy) Service: Hematology Author Type: Physician Drywall Sander Type: Consult Progress Note Filed: 11/09/2017 4:45 [...] IR guided intervention (initially on 10/23 at [facility] and 10/26 here at [facility]. ? # Antiphospholipid antibody syndrome -Current [...] November 09, 2017 TIME: 4:35 PM PAGER: [phone] THERAPY NT Observed: 11/09/2017 Status: COMPLETED Source: [place] 1:37 PM [facility] REPOSITORY HNO ID: [id number] Author: Zahra Burks (Elroy) Service: Occupational Therapy Author Type: Superintendent Menagerie Type: Therapy (PT/OT/Speech/Resp) Filed: 11/09/2017 2:27 PM Note Text: Attestation signed by Yue Uriostegui at 11/09/2017 2:36 PM I reviewed and agree with the documentation corresponding to this therapy visit. SIGNATURE: JERMAINE Maldonado/Allie DATE: November 09, 2017 TIME: 2:36 PM Occupational Therapy Treatment SERVICE DATE: 11/09/2017 SERVICE TIME: 1102 to 1213 ROOM: [address] [address] Recommended Discharge Disposition: Acute Rehab Justification For [...] daily living (ADL) Interventions Provided: Therapeutic Exercise (70801);Therapeutic Activity (16377);Self Longterm Management (04832) Therapeutic Exercise (43217) Treatment Minutes: 28 2 units Skilled Intervention(s): [...] press, elbow flexion, elbow extension, Therapeutic Activity (97039) Treatment Minutes: 15 1 unit Skilled Intervention(s): [...] at a time for additional support. Self Longterm Management (74773) Treatment Minutes: 28 2 units Skilled Intervention(s): [...] November 09, 2017 TIME: 1:37 PM PAGER: [phone] PROGRESS Observed: 11/09/2017 Status: COMPLETED Source: [place] 11:38 AM [facility] [place] REPOSITORY [facility] ID: [id number] Author: Edson Mohr Service: General Internal Medicine Author Type: Physician Type: Progress Notes Filed: 11/09/2017 1:58 PM Note Text: DEPARTMENT OF INTERNAL MEDICINE: PROGRESS NOTE PRIMARY TEAM: RAF Terry Weekdays 7 am to 5 pm/Weekend 7 am to 3 pm: Page [phone] 5 pm to 7 am/Weekend 3 pm to 7 am: Coater Helper Pager [phone] PATIENT NAME: Paloma Cannon BRIEF PLAN FOR [...] IR emobolization of left L3 artery at [place] on 10/23 IR embolization of left L2 [...] contrast, now requiring dialysis First HD at [place] on 10/25 with tunneled dialysis catheter placement [...] this morning, access site for embolization at [place], no erythema or induration appreciated on exam, exquisitely TTP Groin study showed no signs of PSA, known AV fistula visualized with retrograde flow, vascular med aware- no further recs 10/28: pain less severe, no physical exam findings Repeat Leg DVT shows no pseudoaneurysm Likely due to nerve compression/RP hematoma causing compressive symtpoms S/p R groin bag placed at [place] on 10/24 s/p L groin bag placed at [facility] during embolization on 10/26 Plan: - Pain management-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 REIMBURSEMENT COUNSELOR as of transfer to [facility] - Will continue to wean dilaudid as pt tolerates, currently kept her on Dilaudid 0.4 mg q4h PRN for pain ? ? ? 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 Recent admission for DAH. Discharged on ?fondaparinux?7.5mg daily? 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 requiring CUTTER FINISHER , volume overload, thrombocytopenia, persistent anemia ? [...] CASE MANAGEM Observed: 11/09/2017 Status: COMPLETED Source: [place] 11:16 AM [facility] REPOSITORY [facility] ID: [id number] Author: Jacinta Aguilar (Rn) JEFF Olmedo Service: Care Management Author Type: Registered Nurse Type: Care Mgt Progress Note Filed: 11/09/2017 11:17 AM Note Text: CARE MANAGEMENT PROGRESS NOTE SERVICE DATE: 11/09/2017 SERVICE TIME: 11:16 AM LOS: 15 days Needs Prior to Discharge: Accepting Facility;Discharge Transportation;Facility or Agency Choices;Insurance Authorization;Patient/Family Dc date TBD CC [facility] contact Is Krysta (p) [phone] (please contact directly rather through ecin) . Per Krysta, pt would like [facility] placement as close to home as possible- [facility] vs [facility]. Referal sent and awaiting response from [facility]. Pt will need close lab montoring (2x/day) of blood status for possible need for transfusion. M80 may be the best option and pt would be agreeable if not accepted by [place] or [facility]. Current on 2LO2/nc, has home O2 2L 02 via [employer]. .Apheresis, IHD (may be short term). If pt presents to bedside please contact Krysta at (p) [phone]. CM to continue to follow SIGNATURE: Jacinta Olmedo RN PATIENT NAME: Paloma Cannon DATE: November 09, 2017 TIME: 11:16 AM PAGER/CONTACT #: [phone] ALLIED HEALTH Observed: 11/09/2017 Status: COMPLETED Source: [place] 10:00 AM [facility] REPOSITORY HNO ID: [id number] Author: Kayla Levin (Therapist)GINA Service: Music Therapy Author Type: Music Therapist [...] MT- PATIENT NAME: Paloma Cannon DATE: November 10, 2017 TIME: 9:16 AM PAGER/CONTACT #: [phone] ALLIED HEALTH Observed: 11/09/2017 Status: COMPLETED Source: [place] 9:53 AM [facility] REPOSITORY HNO ID: [id number] Author: Aline (Rn) JEFF Schreiber Service: Wound/Ostomy [...] noted. used stomahesive powder and covered with [place] Hollihesive skin barrier wedge. ? Pouching: Removed: [place] Hollihesive skin barrier washer cut open 3/4, wedge at 3 and 9 o'clock, then [place] premier flat urostomy pouch cut opening 1, connected to gravity drianage bag. Wear Time: 24 hours. Paste completely swelled Recommendations: Pouching System: [place] Hollihesive wedge at 3 and 9 o'clock; 2x2 Hollihesive washer, cut to 7/8 x 1 (inner radial slits), caulk seams with stomahesive paste, Kyle Premier Urostomy Pouch (outer radial slits), Adapt Oval Convex Ring (21463 small), connected to gravity drainage, mefix tape. Wear Time: 7 days is the goal Comment: 1 set of supplies at bedside Time Increment: 45 minutes .Aline Schreiber RN, BSN, CWCN, COCN, CCCN WO Nursing - Please place consult via Zoomph. Thank you. (M-F: [phone]; Weekends AND Holidays: [phone]). Zahra Jacinto, RN, BSN (G90 Nursing Shadow) CBC Collected: 11/09/2017 Status: F Source: [place] 5:49 AM [facility] REPOSITORY TYPE CODE TESTS [...] By: #### CBC, MG1, PHOS, BMP #### [facility] [address] [address] MAGNESIUM Collected: 11/09/2017 Status: F Source: [place] 5:49 AM [facility] REPOSITORY TYPE CODE TESTS RESULT OUT OF REFERENCE UNITS RANGE LAB MG 1.7-2.3 mg/dL Magnesium 2.0 Performed By: #### CBC, MG1, PHOS, BMP #### [facility] [address] [address] PHOSPHORUS Collected: 11/09/2017 Status: F Source: [place] 5:49 AM [facility] REPOSITORY TYPE CODE TESTS RESULT OUT OF REFERENCE UNITS RANGE LAB PHOS 2.7-4.8 mg/dL Phosphorus 3.8 Performed By: #### CBC, MG1, PHOS, BMP #### [facility] [address] [place] [address] BASIC METABOLIC PANL Collected: 11/09/2017 Status: F Source: [place] 5:49 AM [facility] REPOSITORY TYPE CODE TESTS RESULT OUT OF REFERENCE UNITS RANGE LAB GLU 74-99 mg/dL Glucose 88 Result Comment: The [place] Diabetes Association (ADA) provides guidance for cutoff [...] Standards of Medical Care in Diabetes 2016, [place] Diabetes [employer]. Diabetes Care. 2016.39(Suppl 1). LAB [...] By: #### CBC, MG1, PHOS, BMP #### [facility] [address] [place], [place] [address] TYPE AND SCREEN Collected: 11/09/2017 Status: F Source: [place] 5:49 AM [facility] REPOSITORY TYPE CODE TESTS RESULT OUT OF REFERENCE UNITS RANGE LAB %ABR B ABO/RH(D) POSITIVE LAB % Antibody POS Screen Performed By: #### TSCR #### [facility] [address] [place], [place] [address] CONSULT PROG Observed: 11/08/2017 Status: COMPLETED Source: [place] 5:01 PM [facility] REPOSITORY HNO ID: [id number] Author: Luz Maria Wolfe Service: Hematology Author [...] Component Latest Ref Rng AND Units 11/08/2017 BBOCHB17 Inhibitor <0.5 0.4 YWTRSS50 Activity >67 % 56 (L) MNNDFH52 Interp (NOTE) Component Latest Ref Rng AND [...] guided intervention (initially on 10/23 at [facility] and 10/26 here at [facility]. ? # Antiphospholipid antibody syndrome -Current [...] November 08, 2017 TIME: 5:01 PM PAGER: [phone] Addendum I have repeated the pertinent features [...] PLT COUNT Collected: 11/08/2017 Status: F Source: [place] 2:30 PM [facility] REPOSITORY TYPE CODE TESTS RESULT OUT OF REFERENCE UNITS RANGE LAB PLTCIT 150-400 K/uL Low Citrated Plt 39 Count Result Comment: Result checked and verified No clot detected. Reviewed Sodium Citrate Sample. Performed By: #### CITPLT #### [facility] [address] [place], [place] [address] NUTRITION Observed: 11/08/2017 Status: COMPLETED Source: [place] 1:20 PM [facility] REPOSITORY HNO ID: [id number] Author: Thalia Bang-Arun Rockwell Service: Nutrition Therapy Author Type: Protective Signal Installer Helper Type: Nutrition Filed: 11/08/2017 1:33 PM [...] November 08, 2017 TIME: 1:20 PM PAGER: [phone] ALLIED HEALTH Observed: 11/08/2017 Status: COMPLETED Source: [place] 12:41 PM [facility] REPOSITORY HNO ID: [id number] Author: Tara (Rn) Manny Vann RN Service: [...] noted. used stomahesive powder and covered with [place] Hollihesive skin barrier. Pouching: [place] Hollihesive skin barrier washer cut open 3/4, wedge at 3 and 9 o'clock, then [place] premier flat urostomy pouch cut opening 1, connected to gravity drianage bag. Since the area was folded 1/2 due to groin and abdominal folds, it may be difficult to drain the fluid. One change supplies at the bed side. Will follow. ET's Next Scheduled Visit: 11/10 for discharge needs, may need lesson. TIME INCREMENT: 45 minutes ELIZABETH RatliffN RN CWOCN [facility] nursing pager [phone] (M-F 7a-4p, Sat, Sun, Holiday 7a-3p) CASE MANAGEM Observed: 11/08/2017 Status: COMPLETED Source: [place] 11:28 AM [facility] REPOSITORY HNO ID: [id number] Author: Carmita Zee (Lisw) Service: (none) Author Type: Steel Finisher Type: Care Mgt Progress Note Filed: 11/08/2017 11:31 AM Note Text: CARE MANAGEMENT PROGRESS NOTE SERVICE DATE: 11/08/2017 SERVICE TIME: 11:28 AM LOS: 14 days Needs Prior to Discharge: Accepting Facility;Insurance Authorization;Discharge Transportation ERIKA met with the patient and her spouse. They would like for the patient to go to [place] closer to their home in [place]. SW provided a list. The patient chose [facility]. ERIKA sent the referral, waiting for a response. SIGNATURE: ISATU Katz PATIENT NAME: Paloma Cannon DATE: November 08, 2017 TIME: 11:28 AM PAGER/CONTACT #: [phone] [id number] EVALUATION Collected: 11/08/2017 Status: F Source: [place] 9:45 AM [facility] REPOSITORY TYPE CODE TESTS RESULT OUT OF REFERENCE UNITS RANGE LAB AD13IH <0.5 KDGKMF11 0.4 Inhibitor Result Comment: This test was developed and its performance characteristics determined by [facility] Pathology and Laboratory Medicine [place] ([facility]). It has not been cleared or approved by the FDA. -[facility] is regulated under CLIA as qualified to perform high-complexity testing. This test is used for clinical purposes. It should not be regarded as investigational or for research. LAB AD13A >67 % Low QRNJES59 Activity 54 Result Comment: This test was developed and its performance characteristics determined by [facility] Pathology and [facility] [place] ([facility]). It has not been cleared or approved by the FDA. [facility] is regulated under CLIA as qualified to perform high-complexity testing. This test is used for clinical purposes. It should not be regarded as investigational or for research. LAB AD13AP UPIBHM26 Act Interp (NOTE) Result Comment: Performing Pathologist: Lisseth Ashley M.D. Abnormal - see comment below. SIGNIFICANT FINDINGS: 1. 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 the LRAXKG24 activity level is mildly decreased. IIGDOO58 INHIBITOR SCREEN AND/OR INHIBITOR ASSAY: JSPRRU64 inhibitor assay was performed using mixing studies after 1:1 mixing of normal pooled plasma and the patient's plasma, and residual JVQIOL67 activity was measured using FRET technology. No UFGNRT71 inhibitor is detected (< or = 0.4 Inhibitor Units). SUMMARY: Thrombotic thrombocytopenic purpura (TTP), idiopathic (autoimmune) type, is unlikely. If clinically indicated, consider ordering CQYHTF42 activity and/or inhibitor assay in a new specimen. If clinically indicated, antibody assay is suggested to rule out thrombotic thrombocytopenic purpura (TTP), idiopathic (autoimmune-related) type. Correlate with other clinical conditions associated with decreased PGZZGF76 activity such as hemolytic uremic syndrome, hematopoietic stem cell or solid organ transplantation, sepsis, DIC, HIV infection, inflammation, bloody diarrhea, liver disease, , malignancy, or certain drug effects (e.g.,clopidogrel, cyclosporin, mitomycin C, ticlopidine, etc), and congenital YBBXYF26 deficiency (Skylar-Rafaela syndrome). Severe hemolysis (Hb 2 g/L), hyperbilirubinemia, hyperlipidemia and elevated von Willebrand factor antigen levels can interfere with QMMHOO01 activity assay. Recent transfusion or plasma exchange therapy can falsely normalize QGPMIK90 level, and mask the diagnosis of thrombotic thrombocytopenic purpura (TTP). 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 ? Consent for CUTTER FINISHER: CUTTER FINISHER initiation date: 10/26/17 Consent obtained and in EMR. SIGNATURE: Catherine Oh MD PATIENT NAME: Paloma Cannon DATE: November 08, 2017 TIME: 9:28 AM PAGER: [phone] TEACHING PHYSICIAN NOTE OF PERSONAL INVOLVEMENT IN [...] few weeks Cheri Cuba MD Beeper Number [phone] Authenticated by responsible provider. PROGRESS Observed: 11/08/2017 Status: COMPLETED Source: [place] 6:50 AM [facility] REPOSITORY HNO ID: [id number] Author: Dianna (Rn) JEFF Acevedo Service: (none) Author Type: Registered Nurse Type: Progress Notes Filed: 11/08/2017 6:50 AM Note Text: Nursing Progress Note V[employer] Compliance Director Assessment Note Patient Name: Paloma Cannon [address] Patient Vitals in the past 4 hrs: 11/08/17 0500, BP:186/86, Temp:36.4 ?C (97.6 ?F), Temp src:Oral, Pulse:91, Resp:18, SpO2:94 % Status Change Related to: Cardiac;Vascular Issues (See Nursing Clinical Assessment For Details) The Following People Were Notified: Application Design Engineer/Provider: See Documentation Related to: Continuous Monitoring;Medications Additional Comments : This note was completed by: Dianna Acevedo, JEFF PROGRESS Observed: 11/08/2017 Status: COMPLETED Source: [place] 6:43 AM [facility] REPOSITORY HNO ID: [id number] Author: Edson Mohr Service: General Internal Medicine Author Type: Physician Type: Progress Notes Filed: 11/08/2017 1:46 PM Note Text: DEPARTMENT OF INTERNAL MEDICINE: PROGRESS NOTE PRIMARY TEAM: RAF Terry 7 am to 5 pm/Weekend 7 am to 3 pm: Page [phone] (Dayton Acuna) 5 pm to 7 am/Weekend 3 pm to 7 am: Coater Helper Pager [phone] PATIENT NAME: Paloma Cannon BRIEF PLAN FOR [...] IR emobolization of left L3 artery at [place] on 10/23 IR embolization of left L2 [...] contrast, now requiring dialysis First HD at [place] on 10/25 with tunneled dialysis catheter placement [...] this morning, access site for embolization at [place], no erythema or induration appreciated on exam, exquisitely TTP Groin study showed no signs of PSA, known AV fistula visualized with retrograde flow, vascular med aware- no further recs 10/28: pain less severe, no physical exam findings Repeat Leg DVT shows no pseudoaneurysm Likely due to nerve compression/RP hematoma causing compressive symtpoms S/p R groin bag placed at [place] on 10/24 s/p L groin bag placed at [facility] during embolization on 10/26 Plan: - Pain management-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 REIMBURSEMENT COUNSELOR as of transfer to [facility] - Will continue to wean dilaudid as pt tolerates, currently kept her on Dilaudid 0.4 mg q3h PRN for pain ? ? SIGNATURE: Dayton Acuna MD, PGY2 PAGER: [phone] DATE of SERVICE: November 08, 2017 TIME of SERVICE: 11:43 AM This note is not final until signed by a Staff Physician [facility] STAFF PHYSICIAN NOTE OF PERSONAL INVOLVEMENT IN [...] guided intervention Course complicated with CAPRICE requiring CUTTER FINISHER , volume overload thrombocytopenia, persistent ?anemia ? [...] PM MAGNESIUM Collected: 11/08/2017 Status: F Source: [place] 12:39 AM [facility] REPOSITORY TYPE CODE TESTS RESULT OUT OF REFERENCE UNITS RANGE LAB MG 1.7-2.3 mg/dL Magnesium 2.1 Performed By: #### MG1, PHOS, BMP, CBC, RETIC #### [facility] [address], [place] [id number] PHOSPHORUS Collected: 11/08/2017 Status: F Source: [place] 12:39 AM [facility] REPOSITORY TYPE CODE TESTS RESULT OUT OF REFERENCE UNITS RANGE LAB PHOS 2.7-4.8 mg/dL Phosphorus 3.6 Performed By: #### MG1, PHOS, BMP, CBC, RETIC #### [facility] [address] [place], [place] [address] BASIC METABOLIC PANL Collected: 11/08/2017 Status: F Source: [place] 12:39 AM [facility] REPOSITORY TYPE CODE TESTS RESULT OUT OF REFERENCE UNITS RANGE LAB GLU 74-99 mg/dL High Glucose 112 Result Comment: The [place] Diabetes Association (ADA) provides guidance for cutoff [...] Standards of Medical Care in Diabetes 2016, [place] [employer]. Diabetes Care. 2016.39(Suppl 1). LAB [...] #### MG1, PHOS, BMP, CBC, RETIC #### [facility] [address] [place] [address] CBC Collected: 11/08/2017 Status: F Source: [place] 12:39 AM [facility] REPOSITORY TYPE CODE TESTS [...] #### MG1, PHOS, BMP, CBC, RETIC #### [facility] [address] [place], [place] [address] RETICULOCYTE Collected: 11/08/2017 Status: F Source: [place] 12:39 [facility] REPOSITORY TYPE CODE TESTS RESULT OUT OF RANGE REFERENCE UNITS LAB RETC 0.4-2.0 % High Retic% 9.3 Result Comment: Results verified by dilution. LAB ABRET 0.0180-0.1000 M/uL High Abs Retic 0.247 Result Comment: Results verified by dilution. Performed By: #### MG1, PHOS, BMP, CBC, RETIC #### [facility] [address] [id number] EVALUATION Collected: 11/08/2017 Status: F Source: [place] 12:39 [facility] REPOSITORY TYPE CODE TESTS RESULT OUT OF REFERENCE UNITS RANGE LAB AD13IH <0.5 TGCLBG87 0.4 Inhibitor Result Comment: This test was developed and its performance characteristics determined by [facility] and [facility] [place] ([facility]). It has not been cleared or approved by the FDA. [facility] is regulated under CLIA as qualified to perform high-complexity testing. This test is used for clinical purposes. It should not be regarded as investigational or for research. LAB AD13A >67 % Low LDQKTC97 Activity 56 Result Comment: This test was developed and its performance characteristics determined by [facility] Pathology [facility] [place] ([facility]). It has not been cleared or approved by the FDA. [facility] is regulated under CLIA as qualified to perform high-complexity testing. This test is used for clinical purposes. It should not be regarded as investigational or for research. LAB AD13AP LVDWUU58 Act Interp (NOTE) Result Comment: Performing Pathologist: Lisseth Ashley M.D. Abnormal - see comment below. SIGNIFICANT FINDINGS: 1. 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 the ZFTPSU02 activity level is mildly decreased. GYKEUP00 INHIBITOR SCREEN AND/OR INHIBITOR ASSAY: YNYOYO25 inhibitor assay was performed using mixing studies after 1:1 mixing of normal pooled plasma and the patient's plasma, and residual ALWHSC02 activity was measured using FRET technology. No JPEDMM98 inhibitor is detected (< or = 0.4 Inhibitor Units). SUMMARY: Thrombotic thrombocytopenic purpura (TTP), idiopathic (autoimmune) type, is unlikely. If clinically indicated, consider ordering PRXMEZ45 activity and/or inhibitor assay in a new specimen. If clinically indicated, antibody assay is suggested to rule out thrombotic thrombocytopenic purpura (TTP), idiopathic (autoimmune-related) type. Correlate with other clinical conditions associated with decreased DUIBYE77 activity such as hemolytic uremic syndrome, hematopoietic stem cell or solid organ transplantation, sepsis, DIC, HIV infection, inflammation, bloody diarrhea, liver disease, , malignancy, or certain drug effects (e.g.,clopidogrel, cyclosporin, mitomycin C, ticlopidine, etc), and congenital IYOQFA79 deficiency (Skylar-Rafaela syndrome). Severe hemolysis (Hb 2 g/L), hyperbilirubinemia, hyperlipidemia and elevated von Willebrand factor antigen levels can interfere with KJIMPB88 activity assay. Recent transfusion or plasma exchange therapy can falsely normalize OJSPPC06 level, and mask the diagnosis of thrombotic thrombocytopenic purpura (TTP). Performed By: #### ADM13 #### [facility] [address] [place], [place] [address] NURSING PROG Observed: 11/07/2017 Status: COMPLETED Source: [place] 7:19 PM [facility] REPOSITORY HNO ID: [id number] Author: Grace Deal (Rn), RN Service: (none) Author Type: Registered Nurse Type: Nursing Progress Note Filed: 11/18/2017 7:19 AM Note Text: Nursing Progress Note Patient Name: Paloma Cannon Patient Location: H080 015/H080-16 Daily Note:Patient medicated for pain, numerous times this shift. Effective temporarily. Raf A team made aware during bedside rounds. Patient educated regarding PRN medications. This note was completed by: Grace Deal RN [facility] Observed: 11/07/2017 Status: COMPLETED Source: [place] 5:26 PM [facility] REPOSITORY HNO ID: [id number] Author: Negrito Kelley (Therapist) Miranda Service: Art Therapy Author Type: Therapist Type: Allied Health Filed: 11/07/2017 5:28 PM Note Text: ART THERAPY NOTE SERVICE DATE: 11/07/2017 SERVICE TIME: 4:00 Referred By: PT Reason for Referral: anxiety COMMENTS: Consult was received and appreciated. Pt asleep upon attempt. Did not disturb. Will follow up as able. SIGNATURE: Negrito Jean, [facility]-, PATIENT NAME: Paloma Cannon DATE: November 07, 2017 TIME: 5:26 PM PAGER/CONTACT #: [phone] [facility]IED HEALTH Observed: 11/07/2017 Status: COMPLETED Source: [place] 2:55 PM [facility] REPOSITORY HNO ID: [id number] Author: Kayla Stewart (Therapist) GINA Levin Service: [...] 08, 2017 TIME: 9:16 AM PAGER/CONTACT #: [phone] HISTORY PHYSICAL Observed: 11/07/2017 Status: COMPLETED Source: [place] 12:18 PM [facility] REPOSITORY HNO ID: [id number] Author: Indra Macias) [facility] Service: Physical Therapy Author Type: Road Grader Type: HANDP Filed: 11/07/2017 12:27 PM Note Text: Attestation signed by Mandy SanchezPt) Ashu at 11/07/2017 12:29 PM I reviewed and agree with the documentation corresponding to this therapy visit. SIGNATURE: Mandy Wakefield, DPT DATE: November 07, 2017 TIME: 12:29 PM Physical Therapy Treatment SERVICE DATE: 11/07/2017 SERVICE TIME: 1133 to 1211 ROOM: [place] [address] Recommended Discharge Disposition: Acute Rehab Justification For [...] Diagnosis: Reduced mobility-other Interventions Provided: Gait Training (69013);Therapeutic Exercise (09600);Therapeutic Activity (78607) Therapeutic Exercise (41814) Treatment Minutes: 15 1 unit Skilled Intervention(s): [...] in reasoning for each exercise. Therapeutic Activity (22459) Treatment Minutes: 8 1 unit Skilled Intervention(s): Instructed patient in log roll technique Instructed patient in supine to sit pushing with upper extremities to sit up Education with importance of OOB activities Patient sat EOB for 5 mins for core strengthening with CGA/SBA Gait Training (16760) Treatment Minutes: 15 1 unit Skilled Intervention(s): [...] 07, 2017 TIME: 12:18 PM PAGER/CONTACT #: [phone] CONSULT PROG Observed: 11/07/2017 Status: COMPLETED Source: [place] 10:13 AM [facility] [place] REPOSITORY HNO ID: [id number] Author: Luz Maria Wolfe Service: Hematology Author [...] guided intervention (initially on 10/23 at [facility] and 10/26 here at [facility]. ? # Antiphospholipid antibody syndrome -Current [...] ( ordered) - #CAPRICE on CKD -On CUTTER FINISHER since 10/26 SIGNATURE: Justina Pollard PA-C PATIENT NAME: Paloma Cannon DATE: November 07, 2017 TIME: 10:13 AM PAGER: [phone] Addendum: I have repeated the pertinent features [...] CASE MANAGEM Observed: 11/07/2017 Status: COMPLETED Source: [place] 9:26 AM [facility] [place] REPOSITORY O ID: [id number] Author: Yeni Fowler) Dheeraj Service: (none) Author Type: Steel Finisher Type: Care Mgt Progress Note Filed: 11/08/2017 [...] Heterosexual Gender Identity: Female Abuse History: No, Patient/Shiftman Denies Education History: Associate Degree and [employer] Support System: Family: Status (Including History of Combat Experience): None Legal History:Patient/Shiftman Denies Yazdanism/Spirituality: Wiccan Do Special Considerations/Accommodations Need to be Made? No Are There Practices or Beliefs That May Affect or Influence Care? No, Patient/Shiftman Denies Patient Strengths/Protective Factors: Able to Communicate Needs Educational Background Future-Oriented Supportive Friends/Family PSYCHIATRIC HISTORY: Pt states that she may possibly have some depresson due to her medical issues Family Psychiatric History No Known Psychiatric Illness Homicide/Suicide Risk None Substance Use and Treatment History: Patient/Shiftman Denies Offered Patient Resources: No DISCHARGE RECOMMENDATIONS: Medical Follow-Up and Retirement Facility Patient/Shiftman Agreeable With Discharge Recommendations At This Time? [...] Per chart pt was recently [facility] (10/22) after her 6th episode of [...] 07, 2017 TIME: 9:26 AM PAGER/CONTACT #: [phone] PROGRESS Observed: 11/07/2017 Status: COMPLETED Source: [place] 6:03 AM [facility] REPOSITORY HNO ID: [id number] Author: Edson Mohr Service: General Internal Medicine Author Type: Physician Type: Progress Notes Filed: 11/07/2017 2:28 PM Note Text: DEPARTMENT OF INTERNAL MEDICINE: PROGRESS NOTE PRIMARY TEAM: RAF Terry Weekdays 7 am to 5 pm/Weekend 7 am to 3 pm: Page [phone] (Dayton Acuna) Weekdays 5 pm to 7 am/Weekend 3 pm to 7 am: Coater Helper Pager [phone] PATIENT NAME: Paloma Cannon BRIEF PLAN FOR [...] IR emobolization of left L3 artery at [place] on 10/23 IR embolization of left L2 [...] contrast, now requiring dialysis First HD at [place] on 10/25 with tunneled dialysis catheter placement [...] this morning, access site for embolization at [place], no erythema or induration appreciated on exam, exquisitely TTP Groin study showed no signs of PSA, known AV fistula visualized with retrograde flow, vascular med aware- no further recs 10/28: pain less severe, no physical exam findings Repeat Leg DVT shows no pseudoaneurysm Likely due to nerve compression/RP hematoma causing compressive symtpoms S/p R groin bag placed at [place] on 10/24 s/p L groin bag placed at [facility] during embolization on 10/26 Plan: - Pain management-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 REIMBURSEMENT COUNSELOR as of transfer to [facility] - Will continue to wean dilaudid as pt tolerates, currently kept her on Dilaudid 0.4 mg q3h PRN for pain SIGNATURE: Dayton Acuna MD, PGY2 PAGER: [phone] DATE of SERVICE: November 07, 2017 TIME of SERVICE: 6:03 AM This note is not final until signed by a Staff Physician [facility] STAFF PHYSICIAN NOTE OF PERSONAL INVOLVEMENT IN [...] guided intervention Course complicated with CAPRICE requiring CUTTER FINISHER , volume overload thrombocytopenia, persistent anemia ? L sided pain better controlled on regular doses of hydromorphone Afebrile Menatating well Worsening thrombocytopenia, ongoing hemolysis Per hematology theres is evidence of MAHA on peripheral blood smear Slightly worse renal function PLAN: as delineated above Follow repeat Draby Discusss with hematology if there's concern for TMA Edson Mohr MD November 07, 2017 2:28 PM NURSING PROG Observed: 11/07/2017 Status: COMPLETED Source: [place] 5:18 AM [facility] REPOSITORY O ID: [id number] Author: Galdino (Rn) JEFF Adams Service: Nursing Author Type: Registered Nurse Type: Nursing Progress Note Filed: 11/07/2017 5:20 AM Note Text: Nursing Progress Note Patient Name: Paloma Cannon Patient Location: [facility] 015/H080-16 Daily Note: Pt AANDOx3, continuing to refuse Q2 hr turns. Educated pt on the importance of turning and pt verbally understands. Pt able to turn self with assistance. Pt pain well controlled with dilaudid per MAR. This note was completed by: Galdino Adams RN MAGNESIUM Collected: 11/07/2017 Status: F Source: [place] 4:30 AM [facility] REPOSITORY TYPE CODE TESTS RESULT OUT OF REFERENCE UNITS RANGE LAB MG 1.7-2.3 mg/dL Low Magnesium 1.6 Performed By: #### MG1, PHOS, BMP, RETIC, PRCFUN, PROTSI, PRSCLT #### [facility] [address] [place] [address] PHOSPHORUS Collected: 11/07/2017 Status: F Source: [place] 4:30 AM [facility] REPOSITORY TYPE CODE TESTS RESULT OUT OF REFERENCE UNITS RANGE LAB PHOS 2.7-4.8 mg/dL Phosphorus 3.8 Performed By: #### MG1, PHOS, BMP, RETIC, PRCFUN, PROTSI, PRSCLT #### [facility] [address] [place] [address] BASIC METABOLIC PANL Collected: 11/07/2017 Status: F Source: [place] 4:30 AM [facility] REPOSITORY TYPE CODE TESTS RESULT OUT OF REFERENCE UNITS RANGE LAB GLU 74-99 mg/dL High Glucose 142 Result Comment: The [place] Diabetes Association (ADA) provides guidance for cutoff [...] Standards of Medical Care in Diabetes 2016, [place] [employer] Association. Diabetes Care. 2016.39(Suppl 1). LAB [...] PHOS, BMP, RETIC, PRCFUN, PROTSI, PRSCLT #### [facility] [address] [place] [address] RETICULOCYTE Collected: 11/07/2017 Status: F Source: [place] 4:30 AM [facility] REPOSITORY TYPE CODE TESTS RESULT OUT OF RANGE REFERENCE UNITS LAB RETC 0.4-2.0 % High Retic% 11.0 Result Comment: Results verified by dilution. LAB ABRET 0.0180-0.1000 M/uL High Abs Retic 0.328 Result Comment: Results verified by dilution. Performed By: #### MG1, PHOS, BMP, RETIC, PRCFUN, PROTSI, PRSCLT #### [facility] [address] [place] [id number] PROTEIN C FUNCTIONAL Collected: 11/07/2017 Status: F Source: [place] 4:30 AM [facility] REPOSITORY TYPE CODE TESTS RESULT OUT OF REFERENCE UNITS RANGE LAB PRCFUN 76-147 % Protein High C Functional 167 Result Comment: The protein C level is elevated. This may be seen with an acute phase response, but is of doubtful clinical significance. Performed By: #### MG1, PHOS, BMP, RETIC, PRCFUN, PROTSI, PRSCLT #### [facility] [address] [place], [place] [address] PROT S IMMUNOLOGIC Collected: 11/07/2017 Status: F Source: [place] 4:30 AM [facility] REPOSITORY TYPE CODE TESTS RESULT OUT OF REFERENCE UNITS RANGE LAB TPROTS 74-156 % Total Protein 84 S LAB FPROTS 55-148 % Free Protein 99 S Performed By: #### MG1, PHOS, BMP, RETIC, PRCFUN, PROTSI, PRSCLT #### [place] [id number] [place] [id number] PROTEIN S CLOTTABLE Collected: 11/07/2017 Status: F Source: [place] 4:30 AM [facility] REPOSITORY TYPE CODE TESTS RESULT OUT OF REFERENCE UNITS RANGE LAB PRSCLT 59-131 % Protein S 75 Clottable Performed By: #### MG1, PHOS, BMP, RETIC, PRCFUN, PROTSI, PRSCLT #### [place] [address] TYPE AND SCREEN Collected: 11/07/2017 Status: F Source: [place] 4:30 AM [facility] REPOSITORY TYPE CODE TESTS RESULT OUT OF REFERENCE UNITS RANGE LAB %ABR B ABO/RH(D) POSITIVE LAB % Antibody POS Screen Performed By: #### TSCR #### [place] [address] CBC Collected: 11/07/2017 Status: F Source: [place] 4:30 AM [facility] REPOSITORY TYPE CODE TESTS RESULT OUT [...] Absolute nRBC Performed By: #### CBC #### [facility] [address] [place], [place] [address] CBC Collected: 11/06/2017 Status: F Source: [place] 8:03 PM [facility] REPOSITORY TYPE CODE TESTS RESULT OUT [...] Absolute nRBC Performed By: #### CBC #### [facility] [address] [place], [place] [address] NURSING PROG Observed: 11/06/2017 Status: COMPLETED Source: [place] 7:33 PM [facility] REPOSITORY HNO ID: [id number] Author: Grace SanchezRn) JEFF Deal Service: (none) [...] CASE MANAGEM Observed: 11/06/2017 Status: COMPLETED Source: [place] 3:30 PM [facility] REPOSITORY HNO ID: [id number] Author: Jacinta Aguilar (Rn) JEFF Olmedo Service: [...] TBD. Skilled AR, AR referral sent to [facility] for information to assist pt w deciding AR location. 2L NC via [facility]. Current on 2LO2/nc. Pt will be at bedside 11/08 between 9an and 3p to participate in dc planning. . . Apheresis, IHD, pain, leg numbness/weakness improving. CM to continue to follow SIGNATURE: Jacinta Olmedo RN PATIENT NAME: Paloma Cannon DATE: November 06, 2017 TIME: 3:30 PM PAGER/CONTACT #: [phone] CBC Collected: 11/06/2017 Status: F Source: [place] 10:12 AM [facility] REPOSITORY TYPE CODE TESTS RESULT OUT [...] nRBC 0.02 Performed By: #### CBC #### [facility] [address] [place] [id number] CONSULT PROG Observed: 11/06/2017 Status: COMPLETED Source: [place] 9:49 AM [facility] REPOSITORY HNO ID: [id number] Author: Aj Keenan Service: Hematology Author Type: Physician Type: Consult Progress Note Filed: 11/06/2017 7:39 PM Note Text: ? [facility] DEPARTMENT OF HEMATOLOGIC ONCOLOGY AND BLOOD DISORDERS [...] IR guided intervention (initially on 10/23 at [facility] and 10/26 here at [facility]. ? # Antiphospholipid antibody syndrome Extensive [...] MD Fellow, Hematology and Medical Oncology Pager: [phone] STAFF ADDENDUM: I have reviewed the history, [...] hemolysis and [place] [phone] CONSULT PROG Observed: 11/06/2017 Status: COMPLETED Source: [place] 9:04 AM [facility] REPOSITORY HNO ID: [id number] Author: Domingo Fleming Service: Radiology Author Type: [...] with IR staff Dr Aranda. 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 Consent for CUTTER FINISHER: CUTTER FINISHER initiation date: 10/26/17 Consent obtained and in EMR. Cheri Cuba MD/Staff November 06, 2017 9:06 AM PAGER # [phone] Department of Nephrology and Hypertension PROGRESS Observed: 11/06/2017 Status: COMPLETED Source: [place] 6:03 AM [facility] REPOSITORY HNO ID: [id number] Author: Edson Mohr Service: General Internal Medicine Author Type: Physician Type: Progress Notes Filed: 11/06/2017 3:11 PM Note Text: DEPARTMENT OF INTERNAL MEDICINE: PROGRESS NOTE PRIMARY TEAM: RAF Terry Weekdays 7 am to 5 pm/Weekend 7 am to 3 pm: Page [phone] Weekdays 5 pm to 7 am/Weekend 3 pm to 7 am: Coater Helper Pager [phone] PATIENT NAME: Paloma Cannon BRIEF PLAN FOR [...] IR emobolization of left L3 artery at [place] on 10/23 IR embolization of left L2 [...] is following - CAPRICE (acute kidney injury) ([facility] CAPRICE on CKD III, 2/2 contrast, now requiring dialysis First HD at [place] on 10/25 with tunneled dialysis catheter placement [...] this morning, access site for embolization at [place], no erythema or induration appreciated on exam, exquisitely TTP Groin study showed no signs of PSA, known AV fistula visualized with retrograde flow, vascular med aware- no further recs 10/28: pain less severe, no physical exam findings Repeat Leg DVT shows no pseudoaneurysm Likely due to nerve compression/RP hematoma causing compressive symtpoms S/p R groin bag placed at [place] on 10/24 s/p L groin bag placed at [facility] during embolization on 10/26 Plan: - Pain management-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 REIMBURSEMENT COUNSELOR as of transfer to [facility] - Will continue to wean dilaudid as pt tolerates, currently kept her on Dilaudid 0.4 mg q3h PRN for pain SIGNATURE: Dayton Acuna MD, PGY2 PAGER: [phone] DATE of SERVICE: November 06, 2017 TIME of SERVICE: 6:04 AM This note is not final until signed by a Staff Physician [facility] STAFF PHYSICIAN NOTE OF PERSONAL INVOLVEMENT IN [...] by PE/DVT, DAH , HIT 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 Recent admission for [facility]. Discharged on fondaparinux 7.5mg daily 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 requiring CUTTER FINISHER , volume overload thrombocytopenia, persistent anemia and Moraxella Pneumonia Stable persistent L sided abdominal pain PLAN: as delineated above Unable to anticoagulate at this time ok to remove R drainage bag as per IR SIGNATURE: Edson Mohr MD PAGER: [phone] DATE of SERVICE: November 06, 2017 TIME of SERVICE: 11:00 am CBC Collected: 11/06/2017 Status: F Source: [place] 5:35 AM [facility] REPOSITORY TYPE CODE TESTS RESULT OUT [...] MG1, PHOS, IRON, BMP, HAPTO, LD6 #### [facility] [address] [place] [address] MAGNESIUM Collected: 11/06/2017 Status: F Source: [place] 5:35 AM [facility] REPOSITORY TYPE CODE TESTS RESULT OUT OF REFERENCE UNITS RANGE LAB MG 1.7-2.3 mg/dL Magnesium 1.7 Performed By: #### CBC, MG1, PHOS, IRON, BMP, HAPTO, LD6 #### [facility] [address] [place], [place] [address] PHOSPHORUS Collected: 11/06/2017 Status: F Source: [place] 5:35 AM [facility] REPOSITORY TYPE CODE TESTS RESULT OUT OF REFERENCE UNITS RANGE LAB PHOS 2.7-4.8 mg/dL Phosphorus 3.3 Performed By: #### CBC, MG1, PHOS, IRON, BMP, HAPTO, LD6 #### [facility] [address] [place], [place] [address] IRON AND TIBC Collected: 11/06/2017 Status: F Source: [place] 5:35 AM [facility] REPOSITORY TYPE CODE TESTS RESULT OUT OF REFERENCE UNITS RANGE LAB IRN 41-186 ug/dL Iron 90 LAB TIBC 232-386 ug/dL TIBC 301 LAB SAT 15-57 % Transferrin Saturatn 30 Performed By: #### CBC, MG1, PHOS, IRON, BMP, HAPTO, LD6 #### [facility] [address] [place], [place] [address] BASIC METABOLIC PANL Collected: 11/06/2017 Status: F Source: [place] 5:35 AM [facility] REPOSITORY TYPE CODE TESTS RESULT OUT OF REFERENCE UNITS RANGE LAB GLU 74-99 mg/dL High Glucose 107 Result Comment: The [place] Diabetes Association (ADA) provides guidance for cutoff [...] Standards of Medical Care in Diabetes 2016, [place] [employer]. Diabetes Care. 2016.39(Suppl 1). LAB [...] has been calibrated to be traceable to IDND. An eGFR <60 mL/min/1.73m2 for >3 months is consistent with chronic kidney disease. Refer to KDOQI guidelines for clinical interpretation. In patients with unstable renal function, e.g. those with acute kidney injury, the eGFR may not accurately reflect actual GFR. Performed By: #### CBC, MG1, PHOS, IRON, BMP, HAPTO, LD6 #### [facility] [address] [place] [id number] HAPTOGLOBIN Collected: 11/06/2017 Status: F Source: [place] 5:35 AM [facility] REPOSITORY TYPE CODE TESTS RESULT OUT OF REFERENCE UNITS RANGE LAB HAPTO 31-238 mg/dL Low Haptoglobin <10 Performed By: #### CBC, MG1, PHOS, IRON, BMP, HAPTO, LD6 #### [place] [id number] [place] [id number] LD Collected: 11/06/2017 Status: F Source: [facility] 5:35 AM [facility] REPOSITORY TYPE CODE TESTS RESULT OUT OF RANGE REFERENCE UNITS LAB LD 135-214 U/L High LD 1285 Performed By: #### CBC, MG1, PHOS, IRON, BMP, HAPTO, LD6 #### [place] [address] CBC Collected: 11/06/2017 Status: F Source: [place] 1:30 AM [facility] REPOSITORY TYPE CODE TESTS RESULT OUT [...] Absolute nRBC Performed By: #### CBC #### [facility] [address] [place], [place] [address] NURSING PROG Observed: 11/05/2017 Status: COMPLETED Source: [place] 10:22 PM [facility] REPOSITORY HNO ID: [id number] Author: Daria (Rn) JEFF Wagner Service: (none) Author Type: Registered Nurse Type: Nursing Progress Note Filed: 11/06/2017 6:57 AM Note Text: Nursing Progress Note Patient Name: Paloma Cannon Patient Location: [place] [address]- Daily Note: 2200 - Potassium IV to [...] RN CBC Collected: 11/05/2017 Status: F Source: [place] 7:08 PM [facility] REPOSITORY TYPE CODE TESTS RESULT OUT [...] nRBC Performed By: #### CBC, BMP #### [facility] [address] [place], [place] [address] BASIC METABOLIC PANL Collected: 11/05/2017 Status: F Source: [place] 7:08 PM [facility] [place] REPOSITORY TYPE CODE TESTS RESULT OUT OF REFERENCE UNITS RANGE LAB GLU 74-99 mg/dL High Glucose 195 Result Comment: The [place] Diabetes Association (ADA) provides guidance for cutoff [...] Standards of Medical Care in Diabetes 2016, [place] Diabetes [employer]. Diabetes Care. 2016.39(Suppl 1). LAB [...] GFR. Performed By: #### CBC, BMP #### [facility] [address] [address] NURSING PROG Observed: 11/05/2017 Status: COMPLETED Source: [place] 5:14 PM [facility] REPOSITORY HNO ID: [id number] Author: Kenisha Sauer) JEFF Ro Service: Nursing Author Type: Registered Nurse Type: Nursing Progress Note Filed: 11/05/2017 6:55 PM Note Text: Nursing Progress Note Patient Name: Paloma Cannon Patient Location: [place] [address] Daily Note: K+ 3.3 today, 2 bags IV potassium given. 1 unit platelets given, premedicated with benadryl and solucortef, no s/s of reaction. Legs wrapped per order. Satting wnl on 2L NC. This note was completed by: Kenisha Ro RN CONSULT PROG Observed: 11/05/2017 Status: COMPLETED Source: [place] 12:19 PM [facility] REPOSITORY HNO ID: [id number] Author: Michelle Randhawa (Fel) Service: Hematology/Oncology Author Type: Fellow Type: Consult Progress Note Filed: 11/05/2017 12:24 PM Note Text: ? [facility] DEPARTMENT OF HEMATOLOGIC ONCOLOGY AND BLOOD DISORDERS ? Hematology Consult Follow Up ? ? Patient name: Paloma Cannon : 1990 Date of Service: November 05, 2017 Supervising attending physician: Dr. Keenan ? INTERVAL HISTORY: [facility] from [facility] overnight Complains about severe pain [...] IR guided intervention (initially on 10/23 at [facility] and 10/26 here at [facility]. ? # Antiphospholipid antibody syndrome Extensive [...] Randhawa MD Hematology and Oncology Fellow Pager: [phone] November 05, 2017 12:24 PM PROGRESS Observed: 11/05/2017 Status: COMPLETED Source: [place] 11:34 AM [facility] REPOSITORY HNO ID: [id number] Author: Maria G London) Sandi Service: General Internal Medicine Author Type: Resident Type: Progress Notes Filed: 11/05/2017 11:44 AM Note Text: Attestation signed by Krysta Lopez at 11/05/2017 12:35 PM [facility] STAFF PHYSICIAN NOTE OF PERSONAL INVOLVEMENT IN [...] 11/05/2017 TIME of SERVICE: 12:33 PM ? [facility] - Raf Terry Progress Note PATIENT NAME: [...] 11/04/17 0510 11/02/17 2340 11/02/17 0120 11/01/17 03010/30/17233710/29/17 2335 GLUC 100* 143* 124* 93 124* [...] 1.89* 1.39* 1.25* CHEM: Recent Labs 11/05/17 0511/04/17 0511/02/17233911/02/1711911/01/1730110/30/17233710/29/172334 ALB -- -- 3.4* 3.6* 3.5* -- [...] IR emobolization of left L3 artery at [place] on 10/23 IR embolization of left L2 [...] contrast, now requiring dialysis First HD at [place] on 10/25 with tunneled dialysis catheter placement [...] this morning, access site for embolization at [place], no erythema or induration appreciated on exam, exquisitely TTP Groin study showed no signs of PSA, known AV fistula visualized with retrograde flow, vascular med aware- no further recs 10/28: pain less severe, no physical exam findings Repeat Leg DVT shows no pseudoaneurysm Likely due to nerve compression/RP hematoma causing compressive symtpoms S/p R groin drain placed at [place] on 10/24 s/p L groin drain placed at [facility] during embolization on 10/26 Plan: - Pain management-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 REIMBURSEMENT COUNSELOR as of transfer to [facility] - Will continue to wean dilaudid as pt tolerates, currently kept her on Dilaudid 0.4 mg q3h PRN for pain - IR consult for drain evaluation and removal on 11/05 # VTE PPx: IPCs # Diet: Regular # Dispo: Pending clinical course SIGNATURE: Maria G Junior DO PATIENT NAME: Paloma Cannon DATE: November 05, 2017 TIME: 11:34 AM Pager: [phone] Note is not final until addended or cosigned by staff. CBC Collected: 11/05/2017 Status: F Source: [place] 5:22 AM [facility] REPOSITORY TYPE CODE TESTS RESULT OUT [...] By: #### CBC, MG1, PHOS, BMP #### [facility] [address] [place], [place] [address] MAGNESIUM Collected: 11/05/2017 Status: F Source: [place] 5:22 AM [facility] REPOSITORY TYPE CODE TESTS RESULT OUT OF REFERENCE UNITS RANGE LAB MG 1.7-2.3 mg/dL Magnesium 1.7 Performed By: #### CBC, MG1, PHOS, BMP #### [facility] [address], [place] [address] PHOSPHORUS Collected: 11/05/2017 Status: F Source: [place] 5:22 AM [facility] REPOSITORY TYPE CODE TESTS RESULT OUT OF REFERENCE UNITS RANGE LAB PHOS 2.7-4.8 mg/dL Phosphorus 3.4 Performed By: #### CBC, MG1, PHOS, BMP #### [facility] [address] [place], [place] [address] BASIC METABOLIC PANL Collected: 11/05/2017 Status: F Source: [place] 5:22 AM [facility] REPOSITORY TYPE CODE TESTS RESULT OUT OF REFERENCE UNITS RANGE LAB GLU 74-99 mg/dL High Glucose 100 Result Comment: The [place] Diabetes Association (ADA) provides guidance for cutoff [...] Standards of Medical Care in Diabetes 2016, [place] [employer]. Diabetes Care. 2016.39(Suppl 1). LAB [...] By: #### CBC, MG1, PHOS, BMP #### [facility] [address] [place], [place] [address] CBC Collected: 11/04/2017 Status: F Source: [place] 10:45 PM [facility] REPOSITORY TYPE CODE TESTS RESULT OUT [...] Absolute nRBC Performed By: #### CBC #### [facility] [address] [place] [id number] CONSULT PROG Observed: 11/04/2017 Status: COMPLETED Source: [place] 2:30 PM [facility] REPOSITORY HNO ID: [id number] Author: Luz Maria Wolfe Service: Hematology Author Type: Physician Type: Consult Progress Note Filed: 11/04/2017 3:11 PM Note Text: ? [facility] DEPARTMENT OF HEMATOLOGIC ONCOLOGY AND BLOOD DISORDERS ? Hematology Consult Follow Up ? ? Patient name: Paloma Cannon : 1990 Date of Service: 11/04/2017 Supervising attending physician: Dr. Wolfe ? INTERVAL HISTORY: Transferred from MICU to [facility] overnight Complains about severe pain in the [...] IR guided intervention (initially on 10/23 at [facility] and 10/26 here at [facility]. ? # Antiphospholipid antibody syndrome Extensive [...] MD Fellow, Hematology and Medical Oncology Pager: [phone] Addendum: I have repeated the pertinent features of the history and examination and reviewed appropriate available diagnostics in this patient. I am in agreement with the plan as stated above. I discussed the above plan with the patient and I have answered questions asked by the patient. Pt transferred to [facility] yesterday. Continues on ultrafiltration for fluid removal and renal team evaluating for further CUTTER FINISHER on Monday. Hb has stayed stable since [...] PM CBC Collected: 11/04/2017 Status: F Source: [place] 12:54 PM [facility] REPOSITORY TYPE CODE TESTS [...] Absolute nRBC Performed By: #### CBC #### [facility] [address] [place], [place] [address] DEGRAD PRODUCT Collected: 11/04/2017 Status: F Source: [place] 5:10 AM [facility] REPOSITORY TYPE CODE TESTS RESULT OUT OF REFERENCE UNITS RANGE LAB FDP <10 ug/ml High Degrad Product >40 Performed By: #### FDP, DDMER, FIBCT, MG1, PHOS, BMP, HAPTO, BILIFR, LD6, CBC #### [place] [id number] [place] [id number] D DIMER Collected: 11/04/2017 Status: F Source: [place] 5:10 [facility] REPOSITORY TYPE CODE TESTS RESULT OUT [...] PHOS, BMP, HAPTO, BILIFR, LD6, CBC #### [facility] [place], [place] [address] FIBRINOGEN Collected: 11/04/2017 Status: F Source: [place] 5:10 [facility] REPOSITORY TYPE CODE TESTS RESULT OUT OF REFERENCE UNITS RANGE LAB FIBCT 200-400 mg/dL Fibrinogen 224 Performed By: #### FDP, DDMER, FIBCT, MG1, PHOS, BMP, HAPTO, BILIFR, LD6, CBC #### [facility] [address] [place], [place] [address] MAGNESIUM Collected: 11/04/2017 Status: F Source: [place] 5:10 AM [facility] REPOSITORY TYPE CODE TESTS RESULT OUT OF REFERENCE UNITS RANGE LAB MG 1.7-2.3 mg/dL Magnesium 1.9 Performed By: #### FDP, DDMER, FIBCT, MG1, PHOS, BMP, HAPTO, BILIFR, LD6, CBC #### [facility] [address] [place], [place] [id number] PHOSPHORUS Collected: 11/04/2017 Status: F Source: [place] 5:10 AM [facility] REPOSITORY TYPE CODE TESTS RESULT OUT OF REFERENCE UNITS RANGE LAB PHOS 2.7-4.8 mg/dL Phosphorus 3.2 Performed By: #### FDP, DDMER, FIBCT, MG1, PHOS, BMP, HAPTO, BILIFR, LD6, CBC #### [facility] [address] [place], [place] [id number] BASIC METABOLIC PANL Collected: 11/04/2017 Status: F Source: [place] 5:10 AM [facility] REPOSITORY TYPE CODE TESTS RESULT OUT OF REFERENCE UNITS RANGE LAB GLU 74-99 mg/dL High Glucose 143 Result Comment: The [place] Diabetes Association (ADA) provides guidance for cutoff [...] Standards of Medical Care in Diabetes 2016, [place] [employer]. Diabetes Care. 2016.39(Suppl 1). LAB [...] PHOS, BMP, HAPTO, BILIFR, LD6, CBC #### [place] [address] HAPTOGLOBIN Collected: 11/04/2017 Status: F Source: [place] 5:10 AM [facility] REPOSITORY TYPE CODE TESTS RESULT OUT OF REFERENCE UNITS RANGE LAB HAPTO 31-238 mg/dL Low Haptoglobin <10 Performed By: #### FDP, DDMER, FIBCT, MG1, PHOS, BMP, HAPTO, BILIFR, LD6, CBC #### [facility] [address] [place] [id number] BILIRUBIN,FRACTION Collected: Status: F Source: [place] 11/04/2017 5:10 AM [facility] REPOSITORY TYPE CODE TESTS RESULT OUT OF REFERENCE UNITS RANGE LAB TBILI 0.0-1.5 mg/dL 1.3 Bilirubin, Total LAB BILU 0.0-1.1 mg/dL 0.9 Bilirubin,Un conjug LAB CBIL <0.2 mg/dL High 0.4 Bilirubin,Co njugated Performed By: #### FDP, DDMER, FIBCT, MG1, PHOS, BMP, HAPTO, BILIFR, LD6, CBC #### [facility] [address] [place] [address] LD Collected: 11/04/2017 Status: F Source: [facility] 5:10 AM [facility] REPOSITORY TYPE CODE TESTS RESULT OUT OF RANGE REFERENCE UNITS LAB LD 135-214 U/L High LD 985 Performed By: #### FDP, DDMER, FIBCT, MG1, PHOS, BMP, HAPTO, BILIFR, LD6, CBC #### [facility] [address] [place], [place] [address] CBC Collected: 11/04/2017 Status: F Source: [place] 5:10 AM [facility] REPOSITORY TYPE CODE TESTS RESULT OUT [...] PHOS, BMP, HAPTO, BILIFR, LD6, CBC #### [facility] [address] [place], [place] [address] TYPE AND SCREEN Collected: 11/04/2017 Status: F Source: [place] 5:10 AM [facility] REPOSITORY TYPE CODE TESTS RESULT OUT OF REFERENCE UNITS RANGE LAB %ABR B ABO/RH(D) POSITIVE LAB % Antibody POS Screen Performed By: #### TSCR #### [facility] [address] [place], [place] [address] PROGRESS Observed: 11/04/2017 Status: COMPLETED Source: [place] 4:22 AM [facility] REPOSITORY HNO ID: [id number] Author: Downtime Note Service: (none) Author Type: (none) Type: Progress Notes Filed: 11/04/2017 4:26 AM Note Text: Epic Scheduled Downtime: 11/03/2017 11:34:32 PM to 11/04/2017 4:17:42 AM CBC Collected: 11/03/2017 Status: F Source: [place] 11:28 PM [facility] REPOSITORY TYPE CODE TESTS RESULT OUT [...] Absolute nRBC Performed By: #### CBC #### [facility] [address] [place] [id number] NURSING PROG Observed: 11/03/2017 Status: COMPLETED Source: [place] 10:30 PM [facility] REPOSITORY HNO ID: [id number] Author: Duane SanchezRn) JEFF Enriquez Service: (none) Author Type: Registered Nurse Type: Nursing Progress Note Filed: 11/04/2017 4:59 AM Note Text: 0.4 mg Dilaudid wasted with Jose Gaines RN. NURSING PROG Observed: 11/03/2017 Status: COMPLETED Source: [place] 9:48 PM [facility] REPOSITORY HNO ID: [id number] Author: Maritza SanchezRn) JEFF Figueroa Service: (none) Author Type: Registered Nurse Type: Nursing Progress Note Filed: 11/03/2017 9:48 PM Note Text: Nursing Progress Note Patient Name: Paloma Cannon Patient Location: H080 015/H080-16 Transfer Note: Patient transferred into room/unit [facility] in stable condition. Actions taken: No futher actions taken at this time. Will continue to monitor and check with patient. This note was completed by: TAMI Moise PLAN OF CARE Observed: 11/03/2017 Status: COMPLETED Source: [place] 7:45 PM [facility] REPOSITORY HNO ID: [id number] Author: Daysi Kohli Service: Critical Care Author Type: Resident Type: Plan of Care Filed: 11/03/2017 7:46 PM Note Text: MICU patient transfer to [facility]. Patient signed out to [facility] night team. Patient to go to [facility]. Daysi Kohli DO HISTORY PHYSICAL Observed: 11/03/2017 Status: COMPLETED Source: [place] 7:27 PM [facility] REPOSITORY HNO ID: [id number] Author: Adin Goldsmith Service: General Internal Medicine Author Type: Resident Type: HANDP Filed: 11/03/2017 10:45 PM Note Text: Attestation signed by Krysta Lopez at 11/04/2017 5:03 PM [facility] STAFF PHYSICIAN NOTE OF PERSONAL INVOLVEMENT IN [...] CARE NOTE RAF NIGHT PATIENT GOING TO [employer] [facility] PATIENT NAME: Paloma Cannon LENGTH OF STAY: 9 HOSPITAL ROOM: [place] [address]/G060-[facility]; AGE: 6 1990; 27 year old ADMITTING PHYSICIAN: Austen Choudhury DATE OF ADMISSION: 10/25/2017 11:13 PM SERVICE - Raf Terry SUBJECTIVE PCP: PEYTON ROGERS MD CC: RP [...] peripheral neuropathy She was recently discharged [facility] (10/22) after her 6th episode of respiratory failure requiring mechanical ventilation, was discharged on 2L NC oxygen. During her hospitalization, she had c/o left foot numbness and pain that was managed conservatively. (She was on fondaparinaux while hospitalized and coumadin was held) On 10/23, she presented to [facility] with stabbing left sided abdominal and back pain radiating to both left arm and legs. A CT abdomen was done which showed an extensive Left retroperitoneal hemorrhage with mass effect on the left kidney, with hemorrhage along the mesentery and spleen. She was admitted to [place] ICU as ICU was full and was [...] on 10/25. She was then transferred to [facility] MICU on bed availability for further [...] on top of 7 U PRBC in [place]. Hematology was also consulted who recommended on [...] Her pain was being controlled with dilaudid REIMBURSEMENT COUNSELOR, now changed to iv dilaudid with PO oxycodone. She was also hypertensive and is on Amlodipine 10 mg and coreg 6.25 mg BID. On arrival to the floor, her Hb was 10K, Plt-33K, WBC-12 K Still c/o of a lot of pain in LLE with numbness, was on REIMBURSEMENT COUNSELOR dilaudid until this AM. Endorses cough with [...] 11/01/17 0302 10/30/17 2338 10/29/17 2335 10/28/17 23510/28/17 0401 GLUC 124* 93 124* 107* 115* [...] 11/02/17 0120 11/01/17 0302 10/30/17 2338 10/29/17 23310/28/17 2352 10/28/17 0401 ALB 3.4* 3.6* 3.5* [...] neuropathy, post-thrombotic syndrome, and was transferred from [place] for ongoing L RP bleeding s/p L2,L3 embolization X2, 16 U PRBC total, undergoing dialysis due to volume overload and had 1 session of Apharesis per hematology. She was also found to have Moraxella catarrhalis pneumonia and was treated with Ceftriaxone 10/27-11/03 (completed 7 day course). Major Interval Events: 10/26: Transferred from [place]. Hgb down to 5.5. CTA showing active [...] IR emobolization of left L3 artery at [place] on 10/23 IR embolization of left L2 [...] contrast, now requiring dialysis First HD at [place] on 10/25 with tunneled dialysis catheter placement [...] this morning, access site for embolization at [place], no erythema or induration appreciated on exam, exquisitely TTP Groin study showed no signs of PSA, known AV fistula visualized with retrograde flow, vascular med aware- no further recs 10/28: pain less severe, no physical exam findings Repeat Leg DVT shows no pseudoaneurysm Likely due to nerve compression/RP hematoma causing compressive symtpoms Plan: Pain management-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 REIMBURSEMENT COUNSELOR today Wean of dilaudid slowly, currently kept [...] 03, 2017 TIME: 7:30 PM PAGER/CONTACT #: [phone] These recommendations are not final until staffed by attending provider. CBC Collected: 11/03/2017 Status: F Source: [place] 5:25 PM [facility] REPOSITORY TYPE CODE TESTS RESULT OUT [...] Absolute nRBC Performed By: #### CBC #### [facility] [address] [place], [place] [address] CONSULT PROG Observed: 11/03/2017 Status: COMPLETED Source: [place] 4:06 PM [facility] REPOSITORY HNO ID: [id number] Author: Luz Maria Wolfe Service: Hematology Author Type: Physician Type: Consult Progress Note Filed: 11/03/2017 5:14 PM Note Text: ? [facility] DEPARTMENT OF HEMATOLOGIC ONCOLOGY AND BLOOD DISORDERS [...] IR guided intervention (initially on 10/23 at [facility] and 10/26 here at [facility]. ? # Antiphospholipid antibody syndrome Extensive [...] MD Fellow, Hematology and Medical Oncology Pager: [phone] Addendum: I have repeated the pertinent features [...] THERAPY NT Observed: 11/03/2017 Status: COMPLETED Source: [place] 3:47 PM [facility] REPOSITORY HNO ID: [id number] Author: Tamiko SanchezOt/LDevonte Nelson Service: Occupational Therapy Author Type: Occupational Therapist Type: Therapy (PT/OT/Speech/Resp) Filed: 11/03/2017 3:47 PM Note Text: OCCUPATIONAL THERAPY MISSED VISIT SERVICE DATE: 11/03/2017 SERVICE TIME: 1547 to 1547 ROOM: [place] [address] Attempted Treatment. Patient not seen due to Test/Procedure, IHD at bedside, Will re-attempt as able. SIGNATURE: Tamiko Nelson OT/L PATIENT NAME: Paloma Cannon DATE: November 03, 2017 TIME: 3:47 PM PAGER/CONTACT #:[phone] THERAPY NT Observed: 11/03/2017 Status: COMPLETED Source: [place] 2:23 PM [facility] REPOSITORY HNO ID: [id number] Author: Brenda Meraz Service: Physical Therapy Author Type: Physical Therapist Type: Therapy (PT/OT/Speech/Resp) Filed: 11/03/2017 2:24 PM Note Text: PHYSICAL THERAPY MISSED VISIT SERVICE DATE: 11/03/2017 SERVICE TIME: 1405 to 1405 ROOM: [place] [address] (DAREK APHERESIS MAIN (M12 Plasma)) Attempted Treatment. Patient not seen due to Another service at bedside. IHD at bedside. Will check back as able SIGNATURE: Brenda Meraz PT PATIENT NAME: Paloma Cannon DATE: November 03, 2017 TIME: 2:23 PM PAGER/CONTACT #: [phone] , CBC Collected: 11/03/2017 Status: F Source: [place] 12:43 PM [facility] REPOSITORY TYPE CODE TESTS RESULT OUT [...] Absolute nRBC Performed By: #### CBC #### [facility] [address] [place] [id number] THERAPY NT Observed: 11/03/2017 Status: COMPLETED Source: [place] 12:28 PM [facility] REPOSITORY HNO ID: [id number] Author: Tamiko (Pt) Adelaida Service: Physical Therapy Author Type: Physical Therapist Type: Therapy (PT/OT/Speech/Resp) Filed: 11/03/2017 12:36 PM Note Text: Physical Therapy Wound/Lymph Treatment SERVICE DATE: 11/03/2017 SERVICE TIME: 1105 to 1130 ROOM: [place] [address] ([facility] MAIN (M12 Plasma)) Recommended Discharge [...] Patient TREATMENT INTERVENTIONS: Interventions Provided: Manual Therapy (09868) Manual Therapy (39221) Treatment Minutes: 25 2 units Skilled Intervention: [...] 03, 2017 TIME: 12:28 PM PAGER/CONTACT #: [phone] CASE MANAGEM Observed: 11/03/2017 Status: COMPLETED Source: [place] 9:53 AM [facility] [place] REPOSITORY O ID: [id number] Author: Lisseth Coto (Sw) Service: Case Management Author Type: Steel Finisher Type: Care Mgt Progress Note Filed: 11/03/2017 9:54 AM Note Text: CARE MANAGEMENT PROGRESS NOTE SERVICE DATE: 11/03/2017 SERVICE TIME: 9:53 AM LOS: 9 days Needs Prior to Discharge: To Be Determined Pain better controlled. Plan on RNF after dialysis today, transfuse as needed pending CBC. Plan for apheresis today. receiving distribution station operator AR. ERIKA attempted to meet with pt and discuss AR, however apheresis tech at bedside working with pt. ERIKA will attempt to follow up this afternoon. SIGNATURE: JUAN PABLO Romo PATIENT NAME: Paloma Cannon DATE: November 03, 2017 TIME: 9:53 AM PAGER/CONTACT #: [phone] PROGRESS Observed: 11/03/2017 Status: COMPLETED Source: [place] 9:27 AM [facility] REPOSITORY O ID: [id number] Author: Austen Choudhury Service: Critical Care Author Type: Physician Type: Progress Notes Filed: 11/03/2017 11:19 AM Note Text: SERVICE DATE: 11/03/2017 SERVICE TIME: 9:27 AM MICU PROGRESS NOTE Admission Date: 10/25/2017 Hospital Day # 9 SUBJECTIVE Interval HPI: Improved reports more movement in left leg compared to yesterday pain is somewhat better using REIMBURSEMENT COUNSELOR less, basal rate has been off x24 [...] kg (247 lb 5.7 oz) (10/25/172326) DIET HEART HEALTHY Lines, Drains, and Airways [...] Awake, oriented, Follows commands Infusion Medications HYDROmorphone REIMBURSEMENT COUNSELOR 0.5 mg/mL NaCl 0.9% Last Rate: 30 [...] neuropathy, post-thrombotic syndrome, and was transferred from [place] for ongoing L RP bleeding. Major Interval Events: 10/26: Transferred from [place]. Hgb down to 5.5. CTA showing active [...] >30 - continue PO oxycodone, wean dilaudid REIMBURSEMENT COUNSELOR - Hold anticoagulation - Monitor respiratory status - IHD - apheresis today - Increase coreg - DVT scan - PT/OT - Transfer to [facility] after dialysis - Plan discussed with MICU [...] this morning, access site for embolization at [place], no erythema or induration appreciated on exam, [...] IR emobolization of left L3 artery at [place] on 10/23 IR embolization of left L2 [...] - cyclophosphamide to 75mg - Heme following, kain recs - Apheresis today - pain regimen [...] contrast, now requiring dialysis First HD at [place] on 10/25 with tunneled dialysis catheter placement [...] 03, 2017 TIME: 9:27 AM PAGER/CONTACT #: [phone] [facility] STAFF PHYSICIAN NOTE OF PERSONAL INVOLVEMENT IN [...] as tolerated. Continue oral analgesics to lower REIMBURSEMENT COUNSELOR pump.? PT ?? Patient/Family Updated:?Pt was updated. [...] ?? SIGNATURE: Austen Choudhury MD [facility] PAGER:[phone] November 03, 2017 PROCEDURE Observed: 11/03/2017 Status: COMPLETED Source: [place] 9:04 AM [facility] REPOSITORY HNO ID: [id number] Author: Zahra Wallace Service: Apheresis Author Type: [...] Completed by Apheresis Nurse: Angella Ortiz RN [facility] STAFF PHYSICIAN NOTE OF PERSONAL INVOLVEMENT IN CARE No blood transfusion for a few days. She feels better also. Note plans to transfer to [facility]. On dialysis and IUF alternating. I reviewed [...] MD November 03, 2017 11:03 AM Pager: [phone] CONSULT PROG Observed: 11/03/2017 Status: COMPLETED Source: [place] 8:21 AM [facility] REPOSITORY O ID: [id number] Author: Laya Peters (Fel) Service: Nephrology Author [...] mg INTRAVENOUS q 4 H PRN HYDROmorphone REIMBURSEMENT COUNSELOR 0.5 mg/mL in NaCl 0.9% 100 mL [...] 3 sec to renal vein thrombosis requiring CUTTER FINISHER since 10/26/2017 -Baseline Cr 1.2 to 1.5 [...] medications for eGFR <10 mL/min Consent for CUTTER FINISHER: CUTTER FINISHER initiation date: 10/26/17 Consent obtained and in EMR. Will discuss with staff SIGNATURE: Laya Peters MD PATIENT NAME: Paloma Cannon DATE: November 03 2017 TIME: 8:30 AM PAGER: [phone] TEACHING PHYSICIAN NOTE OF PERSONAL INVOLVEMENT IN [...] FABY, mass effect on kidney - On CUTTER FINISHER since 10/26 ? #. Stage III CKD [...] BID. Vini Toledo MD, FASN - Pager [phone] November 03, 2017 @ 10:03 AM CBC Collected: 11/03/2017 Status: F Source: [place] 6:35 AM [facility] REPOSITORY TYPE CODE [...] Absolute nRBC Performed By: #### CBC #### [facility] [address] [place], [place] [address] COMP METABOLIC PANEL Collected: 11/02/2017 Status: F Source: [place] 11:40 PM [facility] REPOSITORY TYPE CODE TESTS RESULT OUT [...] mg/dL Glucose High 124 Result Comment: The [place] Diabetes Association (ADA) provides guidance for cutoff [...] Standards of Medical Care in Diabetes 2016, [place] [employer]. Diabetes Care. 2016.39(Suppl 1). LAB [...] By: #### CMP, MG1, PHOS, CBC #### [facility] [address] [place] [id number] MAGNESIUM Collected: 11/02/2017 Status: F Source: [place] 11:40 PM [facility] REPOSITORY TYPE CODE TESTS RESULT OUT OF REFERENCE UNITS RANGE LAB MG 1.7-2.3 mg/dL Magnesium 1.8 Performed By: #### CMP, MG1, PHOS, CBC #### [facility] [address] [place] [address] PHOSPHORUS Collected: 11/02/2017 Status: F Source: [place] 11:40 PM [facility] REPOSITORY TYPE CODE TESTS RESULT OUT OF REFERENCE UNITS RANGE LAB PHOS 2.7-4.8 mg/dL Phosphorus 3.1 Performed By: #### CMP, MG1, PHOS, CBC #### [facility] [address] [place] [id number] CBC Collected: 11/02/2017 Status: F Source: [place] 11:40 PM [facility] REPOSITORY TYPE CODE TESTS RESULT OUT [...] By: #### CMP, MG1, PHOS, CBC #### [facility] [address] [place], [place] [address] CBC Collected: 11/02/2017 Status: F Source: [place] 6:25 PM [facility] REPOSITORY TYPE CODE TESTS RESULT OUT [...] detected. No call per procedure. 11/02/17 1906 Mara Banegas LAB MPV 9.0-12.7 fL MPV <<DO NOT REPORT>> LAB ABSNUC <0.01 k/uL 0.11 High Absolute nRBC Performed By: #### CBC #### [facility] [address] [place] [id number] ALL[facility] HEALTH Observed: 11/02/2017 Status: COMPLETED Source: [place] 5:07 PM [facility] REPOSITORY HNO ID: [id number] Author: Negrito Kelley (Therapist) Miranda Service: Art [...] 02, 2017 TIME: 5:08 PM PAGER/CONTACT #: [phone] CONSULT PROG Observed: 11/02/2017 Status: COMPLETED Source: [place] 2:41 PM [facility] REPOSITORY HNO ID: [id number] Author: Aj Keenan Service: Hematology Author Type: Physician Type: Consult Progress Note Filed: 11/02/2017 3:45 PM Note Text: ? [facility] DEPARTMENT OF HEMATOLOGIC ONCOLOGY AND BLOOD [...] mg INTRAVENOUS q 4 H PRN HYDROmorphone REIMBURSEMENT COUNSELOR 0.5 mg/mL in NaCl 0.9% 100 mL [...] IR guided intervention (initially on 10/23 at [facility] and 10/26 here at [facility]. ? # Antiphospholipid antibody syndrome Extensive [...] MD Fellow, Hematology and Medical Oncology Pager: [phone] STAFF ADDENDUM: I have reviewed the history, [...] of plasma [place] [phone] NUTRITION Observed: 11/02/2017 Status: COMPLETED Source: [place] 12:35 PM [facility] REPOSITORY O ID: [id number] Author: Edel Guillen Service: NST-Nutrition Support Team [...] diet to 4 gm Na+ Will d/c German Shake per patient request Continue Ensure Clear [...] neuropathy, post-thrombotic syndrome, and was transferred from [place] for ongoing L RP bleeding. ? Interval [...] Since admit: (11/02) po intake varies per [facility] documentation but ate 50- 100% x [...] since admit with diuresis Last wts in [facility]: 10/13/17 : 104 kg (229 lb [...] (257 lb 15 oz) 10/18/2016 ?114.306 kg? [place] body weight 52.3 kg Estimated kilocalorie needs: 7482-3913?kilocalories determined by 25-30?kcal/kg ideal body weight Estimated protein needs: 78-105?grams determined by 1.5-2.0 g/kg?[place]?weight Estimated fluid needs: per MD NUTRITION FOCUSED [...] mg INTRAVENOUS q 4 H PRN HYDROmorphone REIMBURSEMENT COUNSELOR 0.5 mg/mL in NaCl 0.9% 100 mL [...] 3 units SIGNATURE: Edel Guillen, RD, LD, [facility] PATIENT NAME: Paloma Cannon DATE: November 02, 2017 TIME: 12:36 PM PAGER: [phone] THERAPY NT Observed: 11/02/2017 Status: COMPLETED Source: [place] 11:54 AM [facility] REPOSITORY HNO ID: [id number] Author: Brenda (Pt) Kt Service: Physical Therapy Author Type: Physical Therapist Type: Therapy (PT/OT/Speech/Resp) Filed: 11/02/2017 11:58 AM Note Text: Physical Therapy Treatment SERVICE DATE: 11/02/2017 SERVICE TIME: 1015 to 1054 ROOM: [place] [address] (VAS LAB MAIN ([facility] Vasc/Ultrasound)) Recommended Discharge Disposition: Acute Rehab [...] Diagnosis: Reduced mobility-other Interventions Provided: Therapeutic Activity (36849) Therapeutic Activity (65404) Treatment Minutes: 39 3 units Skilled Intervention(s):Education [...] 02, 2017 TIME: 11:54 AM PAGER/CONTACT #: [phone] CBC Collected: 11/02/2017 Status: F Source: [place] 11:45 AM [facility]IN CAMP[facility] REPOSITORY TYPE [...] Absolute nRBC Performed By: #### CBC #### [facility] [address] [place], [place] [address] PLAN OF CARE Observed: 11/02/2017 Status: COMPLETED Source: [place] 9:52 AM [facility] REPOSITORY HNO ID: [id number] Author: Christina Acuna Service: Neurology Author Type: [...] important that she receives early mobilization and local intermodal truck driver PT. No further intervention. -> Please feel free to call us [phone] if patient worsens. -> Given duration of symptoms low yield for EMG at this time. Will set up outpatient EMG in 3 weeks. -> Will set up outpatient followup. -> Plan discussed with Daysi García. Christina Acuna MD PGY-4 Neurology Resident [phone] November 02, 2017 9:57 AM PROGRESS Observed: 11/02/2017 Status: COMPLETED Source: [place] 8:35 AM [facility] REPOSITORY HNO ID: [id number] Author: Austen Choudhury Service: Critical Care Author [...] 36.9 ?C (98.4 ?F) Pulse: 96 (11/02/17 08) Pulse Min: 77 Max: 113 Resp: 14 (11/02/17 08) Resp Min: 13 Max: 31 BP: 170/81 (11/02/17799) BP Min: 134/67 Max: 179/90 MAP Non Invasive (Mean Arterial Pressure): 116 (11/02/17799) MAP Non Invasive (Mean Arterial Pressure) Min: 92 Max: 144 No Data Recorded SpO2: 97 % (11/02/17799) SpO2 Min: 93 % Max: 100 % Pain Score: Pt. Sleeping (Do Not Use With REIMBURSEMENT COUNSELOR Meds) (11/02/17799) Fluid Balance: Intake/Output Summary (Last 24 hours) [...] and Moving all extremities Infusion Medications HYDROmorphone REIMBURSEMENT COUNSELOR 0.5 mg/mL NaCl 0.9% Last Rate: 30 [...] neuropathy, post-thrombotic syndrome, and was transferred from [place] for ongoing L RP bleeding. Major Interval Events: 10/26: Transferred from [place]. Hgb down to 5.5. CTA showing active [...] >30 - continue PO oxycodone, wean off REIMBURSEMENT COUNSELOR pump - Hold anticoagulation - Monitor respiratory [...] this morning, access site for embolization at [place], no erythema or induration appreciated on exam, [...] IR emobolization of left L3 artery at [place] on 10/23 IR embolization of left L2 [...] has signed off CAPRICE (acute kidney injury) ([facility]) 10/08/2015 - Present Overview CAPRICE on CKD III, 2/2 contrast, now requiring dialysis First HD at [place] on 10/25 with tunneled dialysis catheter placement [...] 02, 2017 TIME: 8:35 AM PAGER/CONTACT #: [phone] [facility] STAFF PHYSICIAN NOTE OF PERSONAL INVOLVEMENT IN [...] s/p IVC filter. Persistent abdominal pain on REIMBURSEMENT COUNSELOR pump. On 2 L/min of O2. Moraxella [...] as tolerated. Continue oral analgesics to lower REIMBURSEMENT COUNSELOR pump. Pending final interpretation of peripheral blood [...] ?? SIGNATURE: Austen Choudhury MD [facility] PAGER:[phone] November 02, 2017 CONSULT PROG Observed: 11/02/2017 Status: COMPLETED Source: [place] 7:30 AM [facility] MAIN [place] REPOSITORY [facility] ID: [id number] Author: Vini Toledo MD Service: Nephrology Author [...] mg INTRAVENOUS q 4 H PRN HYDROmorphone REIMBURSEMENT COUNSELOR 0.5 mg/mL in NaCl 0.9% 100 mL [...] anuric CAPRICE on CKD stage 3 requiring CUTTER FINISHER since 10/26/2017 Baseline Cr 1.2 to 1.5 [...] of 2 to 2.5L -Will assess for CUTTER FINISHER needs on a daily basis -Next treatment on Monday - Strict I/O's - Renal diet - Dose medications for eGFR <10 mL/min Consent for CUTTER FINISHER: CUTTER FINISHER initiation date: 10/26/17 Consent obtained and in EMR. Will discuss with staff SIGNATURE: Laya Peters MD PATIENT NAME: Paloma Cannon DATE: November 02, 2017 TIME: 7:37 AM PAGER: [phone] TEACHING PHYSICIAN NOTE OF PERSONAL INVOLVEMENT IN [...] dialysis/IUF. Vini Toledo MD, FASN - Pager [phone] November 02, 2017 @ 7:59 AM CBC Collected: 11/02/2017 Status: F Source: [place] 6:20 AM [facility] MAIN CAMPUS REPOSITORY TYPE CODE TESTS [...] nRBC 0.23 Performed By: #### CBC #### [facility] [address] [place], [place] [address] CBC Collected: 11/02/2017 Status: F Source: [place] 1:20 [facility] REPOSITORY TYPE CODE TESTS RESULT OUT [...] By: #### CBC, CMP, MG1, PHOS #### [facility] [address] [place], [place] [address] COMP METABOLIC PANEL Collected: 11/02/2017 Status: F Source: [place] 1:20 AM [facility] REPOSITORY TYPE CODE TESTS RESULT OUT [...] 74-99 mg/dL Glucose 93 Result Comment: The [place] Diabetes Association (ADA) provides guidance for cutoff [...] Standards of Medical Care in Diabetes 2016, [place] [employer]. Diabetes Care. 2016.39(Suppl 1). LAB [...] By: #### CBC, CMP, MG1, PHOS #### [facility] [address] [place], [place] [address] MAGNESIUM Collected: 11/02/2017 Status: F Source: [place] 1:20 AM [facility] REPOSITORY TYPE CODE TESTS RESULT OUT OF REFERENCE UNITS RANGE LAB MG 1.7-2.3 mg/dL Magnesium 2.0 Performed By: #### CBC, CMP, MG1, PHOS #### [facility] [address] [place], [place] [address] PHOSPHORUS Collected: 11/02/2017 Status: F Source: [place] 1:20 AM [facility] REPOSITORY TYPE CODE TESTS RESULT OUT OF REFERENCE UNITS RANGE LAB PHOS 2.7-4.8 mg/dL Low Phosphorus 2.1 Performed By: #### CBC, CMP, MG1, PHOS #### [address] [address] CBC Collected: 11/01/2017 Status: F Source: [place] 5:40 PM [facility] REPOSITORY TYPE CODE TESTS RESULT OUT [...] Absolute nRBC Performed By: #### CBC #### [facility] [address], [place] [address] BUN, POST DIALYSIS Collected: 11/01/2017 Status: F Source: [place] 5:02 PM [facility] REPOSITORY TYPE CODE TESTS RESULT OUT OF REFERENCE UNITS RANGE LAB BUNPO 7-21 mg/dL BUN, Post Dialysis 17 LAB BUNRAT % Urea Reduction Ratio 62 Performed By: #### BUNPO1 #### [facility] [address] [place], [place] [id number] BUN, PRE DIALYSIS Collected: 11/01/2017 Status: F Source: [place] 1:19 PM [facility] REPOSITORY TYPE CODE TESTS RESULT OUT OF REFERENCE UNITS RANGE LAB BUNPR 7-21 mg/dL High BUN, Pre 45 Dialysis Performed By: #### BUNPR #### [facility] [address] [place], [place] [address] PROGRESS Observed: 11/01/2017 Status: COMPLETED Source: [place] 10:55 AM [facility] REPOSITORY HNO ID: [id number] Author: Christine Walker (Pa) Service: Critical Care Author Type: Physician Drywall Sander Type: Progress Notes Filed: 11/01/2017 10:57 AM [...] 11/01/17 0659 Last data filed at 11/01/17 0600 Gross [...] and Moving all extremities Infusion Medications HYDROmorphone REIMBURSEMENT COUNSELOR 0.5 mg/mL NaCl 0.9% Last Rate: 10 [...] Peripheral neuropathy - post-thrombotic syndrome Transferred from [place] for ongoing L RP bleeding. Major Interval Events: 10/26: Transferred from [place]. Hgb down to 5.5. CTA showing active [...] >30 - Start PO oxycodone, wean off REIMBURSEMENT COUNSELOR pump - Hold anticoagulation - Monitor respiratory [...] contrast, now requiring dialysis First HD at [place] on 10/25 with tunneled dialysis catheter placement [...] IR emobolization of left L3 artery at [place] on 10/23 IR embolization of left L2 [...] this morning, access site for embolization at [place], no erythema or induration appreciated on exam, [...] 01, 2017 TIME: 10:55 AM PAGER/CONTACT #: [phone] TYPE AND SCREEN Collected: 11/01/2017 Status: F Source: [place] 10:25 AM [facility] REPOSITORY TYPE CODE TESTS RESULT OUT OF REFERENCE UNITS RANGE LAB %ABR B ABO/RH(D) POSITIVE LAB % Antibody POS Screen Performed By: #### TSCR #### [facility] [address], [place] [address] CBC Collected: 11/01/2017 Status: F Source: [place] 10:07 AM [facility] REPOSITORY TYPE CODE TESTS RESULT OUT [...] Absolute nRBC Performed By: #### CBC #### [facility] [address] [place], [place] [address] CONSULT PROG Observed: 11/01/2017 Status: COMPLETED Source: [place] 9:50 AM [facility] REPOSITORY HNO ID: [id number] Author: Aj Keenan Service: Hematology Author Type: Physician Type: Consult Progress Note Filed: 11/01/2017 5:04 PM Note Text: ? [facility] DEPARTMENT OF HEMATOLOGIC ONCOLOGY AND BLOOD [...] mg INTRAVENOUS q 4 H PRN HYDROmorphone REIMBURSEMENT COUNSELOR 0.5 mg/mL in NaCl 0.9% 100 mL [...] IR guided intervention (initially on 10/23 at [facility] and 10/26 here at [facility]. ? # Antiphospholipid antibody syndrome Extensive [...] MD Fellow, Hematology and Medical Oncology Pager: [phone] STAFF ADDENDUM: I have reviewed the history, [...] support as [place] [phone] THERAPY NT Observed: 11/01/2017 Status: COMPLETED Source: [place] 9:28 AM [facility] MAIN [place] REPOSITORY HNO ID: [id number] Author: Brenda SanchezPtDevonte Meraz Service: Physical Therapy Author Type: Physical Therapist Type: Therapy (PT/OT/Speech/Resp) Filed: 11/01/2017 9:34 AM Note Text: Physical Therapy Treatment SERVICE DATE: 11/01/2017 SERVICE TIME: 852 to 916 ROOM: [place] [address] Recommended Discharge Disposition: Acute Rehab Due to [...] Diagnosis: Reduced mobility-other Interventions Provided: Therapeutic Exercise (34610) Therapeutic Exercise (17953) Treatment Minutes: 24 2 units Skilled Intervention(s): [...] 01, 2017 TIME: 9:28 AM PAGER/CONTACT #: [phone] THERAPY NT Observed: 11/01/2017 Status: COMPLETED Source: [place] 9:24 AM [facility] REPOSITORY HNO ID: [id number] Author: Brenda SanchezPt) Kt Service: Physical Therapy Author Type: Physical Therapist Type: Therapy (PT/OT/Speech/Resp) Filed: 11/01/2017 9:27 AM Note Text: Physical Therapy Treatment SERVICE DATE: 11/01/2017 SERVICE TIME: 809 to 0825 ROOM: [place] [address] Recommended Discharge Disposition: Acute Rehab Due to [...] Diagnosis: Reduced mobility-other Interventions Provided: Therapeutic Activity (86977) Therapeutic Activity (56393) Treatment Minutes: 15 1 unit Skilled Intervention(s): [...] 01, 2017 TIME: 9:24 AM PAGER/CONTACT #: [phone] PROGRESS Observed: 11/01/2017 Status: COMPLETED Source: [place] 9:09 AM [facility] REPOSITORY HNO ID: [id number] Author: Ausetn Choudhury Service: Critical Care Author Type: Physician Type: Progress Notes Filed: 11/01/2017 9:12 AM Note Text: [facility] STAFF PHYSICIAN NOTE OF PERSONAL INVOLVEMENT IN CARE I have reviewed the progress note?obtained and documented by the physician pediatric physical therapy assistant?and I personally participated in the fernandes [...] s/p IVC filter. Persistent abdominal pain on REIMBURSEMENT COUNSELOR pump (using it less after bowel movements). [...] as tolerated. Start oral analgesics to lower REIMBURSEMENT COUNSELOR pump. Peripheral blood smear. Discuss with hematology [...] ?? SIGNATURE: Austen Choudhury MD [facility] PAGER:[phone] November 01, 2017 CONSULT PROG Observed: 11/01/2017 Status: COMPLETED Source: [place] 7:19 AM [facility] REPOSITORY HNO ID: [id number] Author: Vini Toledo MD Service: Nephrology Author [...] mg INTRAVENOUS q 4 H PRN HYDROmorphone REIMBURSEMENT COUNSELOR 0.5 mg/mL in NaCl 0.9% 100 mL [...] anuric CAPRICE on CKD stage 3 requiring CUTTER FINISHER since 10/26/2017 Baseline Cr 1.2 to 1.5 [...] medications for eGFR <10 mL/min Consent for CUTTER FINISHER: CUTTER FINISHER initiation date: 10/26/17 Consent obtained and in EMR. Will discuss with staff SIGNATURE: Laya Peters MD PATIENT NAME: Paloma Cannon DATE: November 01, 2017 TIME: 7:21 AM PAGER: [phone] TEACHING PHYSICIAN NOTE OF PERSONAL INVOLVEMENT IN [...] tomorrow Vini Toledo MD, FASN - Pager [phone] November 01, 2017 @ 9:41 AM CBC Collected: 11/01/2017 Status: F Source: [place] 3:02 AM [facility] REPOSITORY TYPE CODE TESTS RESULT OUT [...] By: #### CBC, CMP, MG1, PHOS #### [facility] [address] [place], [place] [address] COMP METABOLIC PANEL Collected: 11/01/2017 Status: F Source: [place] 3:02 AM [facility] REPOSITORY TYPE CODE TESTS [...] mg/dL Glucose High 124 Result Comment: The [place] Diabetes Association (ADA) provides guidance for cutoff [...] Standards of Medical Care in Diabetes 2016, [place] [employer]. Diabetes Care. 2016.39(Suppl 1). LAB [...] has been calibrated to be traceable to IDND. An eGFR <60 mL/min/1.73m2 for >3 months is consistent with chronic kidney disease. Refer to KDOQI guidelines for clinical interpretation. In patients with unstable renal function, e.g. those with acute kidney injury, the eGFR may not accurately reflect actual GFR. Performed By: #### CBC, CMP, MG1, PHOS #### [facility] [address] [place] [id number] MAGNESIUM Collected: 11/01/2017 Status: F Source: [place] 3:02 AM [facility] REPOSITORY TYPE CODE TESTS RESULT OUT OF REFERENCE UNITS RANGE LAB MG 1.7-2.3 mg/dL Magnesium 1.7 Performed By: #### CBC, CMP, MG1, PHOS #### [facility] [address] [place] [address] PHOSPHORUS Collected: 11/01/2017 Status: F Source: [place] 3:02 AM [facility] REPOSITORY TYPE CODE TESTS RESULT OUT OF REFERENCE UNITS RANGE LAB PHOS 2.7-4.8 mg/dL Phosphorus 3.0 Performed By: #### CBC, CMP, MG1, PHOS #### [facility] [address] [place], [place] [address] STAFF REV Bk CBCDIF Collected: 10/31/2017 Status: F Source: [place] 6:33 PM [facility] REPOSITORY TYPE CODE TESTS RESULT OUT [...] Abs Lymph 0.17 Low LAB AMONO % Alexander% 3.0 LAB AAMONO <0.87 k/uL Abs [place] 0.50 LAB AEOS % Eosin% 1.0 LAB [...] Pathologist Reviewed by Gabriel Garcia M.D., Ph.D ([id number]) Performed By: #### STREV #### [facility] [address] [place], [place] [address] CT ABD/PEL WO IVCON Observed: 10/31/2017 Status: F Source: [place] 3:20 PM [facility] REPOSITORY * * *Final Report* * * DATE OF EXAM: Oct 31 2017 3:20PM [facility] 0531 - CT ABD/PEL WO IVCON [...] PERSISTENT NONSPECIFIC DIFFUSE GROUNDGLASS ATTENUATION, PROBABLY EDEMA. Glass Edger: PSCB Transcribe Date/Time: Oct 31 2017 3:57P Dictated by : SANCHEZ WHITE MD This examination was interpreted and the report reviewed and electronically signed by: TARIK PENG MD on Oct 31 2017 5:44PM EST [id number] [id number] Observed: 10/31/2017 Status: COMPLETED Source: [place] 3:17 PM [facility] REPOSITORY HNO ID: [id number] Author: RXOY Solorio (Ct) Service: Radiology Author Type: Clinical Chute Operator Type: Progress Notes Filed: 10/31/2017 3:17 [...] PM HAPTOGLOBIN Collected: 10/31/2017 Status: F Source: [place] 12:52 PM [facility] REPOSITORY TYPE CODE TESTS RESULT OUT OF REFERENCE UNITS RANGE LAB HAPTO 31-238 mg/dL Low Haptoglobin <10 Performed By: #### HAPTO, LD6 #### [facility] [address] [place], [place] [address] LD Collected: 10/31/2017 Status: F Source: [facility] 12:52 PM MAIN [place] REPOSITORY TYPE CODE TESTS RESULT OUT OF RANGE REFERENCE UNITS LAB LD 135-214 U/L High LD 1730 Performed By: #### HAPTO, LD6 #### [facility] [address] [place], [place] [address] BUN, POST DIALYSIS Collected: 10/31/2017 Status: F Source: [place] 12:43 PM [facility] REPOSITORY TYPE CODE TESTS RESULT OUT OF REFERENCE UNITS RANGE LAB BUNPO 7-21 mg/dL BUN, 36 High Post Dialysis LAB BUNRAT % Urea Reduction Ratio Unable to Calculate Performed By: #### BUNPO1 #### [facility] [address] [place], [place] [address] [facility] Observed: 10/31/2017 Status: COMPLETED Source: [place] 12:30 PM [facility] REPOSITORY HNO ID: [id number] Author: Aleta Sauer) JEFF Sue Service: Healing [...] 31, 2017 TIME: 1:31 PM PAGER/CONTACT #: [phone] NUTRITION Observed: 10/31/2017 Status: COMPLETED Source: [place] 12:01 PM [facility] REPOSITORY HNO ID: [id number] Author: Edel Guillen Service: NST-Nutrition Support Team [...] no intervention recommended. ?? She presented to [facility] ED on 10/23 due to severe stabbing left-sided abdominal pain radiating to left arm/leg. She had a CT abdomen that showed extensive left retroperitoneal hemorrhage with mass effect to the left kidney, and less extensive hemorrhage along the surface of the spleen and along the mesentery. She was transferred to [place] as ICU at [facility] was full. Present Diet Order: NPO [...] (257 lb 15 oz) 10/18/2016 114.306 kg [place] body weight 52.3 kg Estimated kilocalorie needs: 0651-1654 kilocalories determined by 25-30 kcal/kg ideal body weight Estimated protein needs: 78-105 grams determined by 1.5-2.0 g/kg [place] weight Estimated fluid needs: per MD NUTRITION [...] CNSC PATIENT NAME: Paloma Cannon DATE: October 31, 2017 TIME: 12:00 PM PAGER: [phone] THERAPY NT Observed: 10/31/2017 Status: COMPLETED Source: [place] 11:34 AM [facility] REPOSITORY HNO ID: [id number] Author: Tamiko Son Service: Physical Therapy Author Type: Physical Therapist Type: Therapy (PT/OT/Speech/Resp) Filed: 10/31/2017 11:34 AM Note Text: PHYSICAL THERAPY LYMPHEDEMA MISSED VISIT SERVICE DATE: 10/31/2017 SERVICE TIME: 1110 to 1110 ROOM: [place] [address] Attempted Treatment. Patient not seen due to Sleeping. SIGNATURE: Tamiko Son PT PATIENT NAME: Paloma Cannon DATE: October 31, 2017 TIME: 11:34 AM PAGER/CONTACT #: [phone] THERAPY NT Observed: 10/31/2017 Status: COMPLETED Source: [place] 11:33 AM [facility] REPOSITORY HNO ID: [id number] Author: Tamiko Son Service: Physical Therapy Author Type: Physical Therapist Type: Therapy (PT/OT/Speech/Resp) Filed: 10/31/2017 11:33 AM Note Text: PHYSICAL THERAPY LYMPHEDEMA MISSED VISIT SERVICE DATE: 10/31/2017 SERVICE TIME: 0835 to 0835 ROOM: [place] [address] Attempted Treatment. Patient not seen due to Declined (Pt requested that PT return at a later time). SIGNATURE: Tamiko Son PT PATIENT NAME: Paloma Cannon DATE: October 31, 2017 TIME: 11:33 AM PAGER/CONTACT #: [phone] [facility] Observed: 10/31/2017 Status: COMPLETED Source: [place] 11:30 AM [facility] REPOSITORY HNO ID: [id number] Author: Opal Polo Service: Music Therapy Author [...] music therapist will follow-up as able. SIGNATURE: PEREZ Serrano PATIENT NAME: Paloma Cannon DATE: October 31, 2017 TIME: 12:20 PM PAGER/CONTACT #: [phone] PROGRESS Observed: 10/31/2017 Status: COMPLETED Source: [place] 11:29 AM [facility] REPOSITORY HNO ID: [id number] Author: Austen Choudhury Service: Critical Care Author [...] and Moving all extremities Infusion Medications HYDROmorphone REIMBURSEMENT COUNSELOR 0.5 mg/mL NaCl 0.9% Last Rate: 10 [...] Peripheral neuropathy - post-thrombotic syndrome Transferred from [place] for ongoing L RP bleeding. Major Interval Events: 10/26: Transferred from [place]. Hgb down to 5.5. CTA showing active [...] cont pain regimen CAPRICE (acute kidney injury) ([facility]) 10/08/2015 - Present Overview CAPRICE on CKD III, 2/2 contrast, now requiring dialysis First HD at [place] on 10/25 with tunneled dialysis catheter placement [...] PLAN: - Continue neurontin Anti-phospholipid antibody syndrome ([facility]) 10/25/2017 - Present Current Assessment AND Plan [...] IR emobolization of left L3 artery at [place] on 10/23 IR embolization of left L2 [...] this morning, access site for embolization at [place], no erythema or induration appreciated on exam, [...] - cont pain regimen Moraxella catarrhalis pneumonia ([facility]) 10/29/2017 - Present Current Assessment AND Plan PLAN: - Ceftriaxone (10-26-11/02) Plan of care discussed with: Patient and ICU Team SIGNATURE: Christine Walker PA-C PATIENT NAME: Paloma Cannon DATE: October 31, 2017 TIME: 11:29 AM PAGER/CONTACT #: [phone] [facility] STAFF PHYSICIAN NOTE OF PERSONAL INVOLVEMENT IN CARE I have reviewed the progress note obtained and documented by the physician pediatric physical therapy assistant and I personally participated in the [...] s/p IVC filter. Persistent abdominal pain on REIMBURSEMENT COUNSELOR pump (using it less after bowel movements). [...] ? SIGNATURE: Austen Choudhury MD [facility] PAGER:[phone] October 31, 2017 CBC Collected: 10/31/2017 Status: F Source: [place] 11:10 AM [facility] REPOSITORY TYPE CODE TESTS RESULT OUT [...] Absolute nRBC Performed By: #### CBC #### [facility] [address] [place] [address] CONSULT PROG Observed: 10/31/2017 Status: COMPLETED Source: [place] 10:21 AM [facility] REPOSITORY HNO ID: [id number] Author: Juan Christopher (Fel) Service: Hematology Author Type: Fellow Type: Consult Progress Note Filed: 10/31/2017 6:13 PM Note Text: ? [facility] DEPARTMENT OF HEMATOLOGIC ONCOLOGY AND BLOOD DISORDERS [...] mg INTRAVENOUS q 4 H PRN HYDROmorphone REIMBURSEMENT COUNSELOR 0.5 mg/mL in NaCl 0.9% 100 mL [...] IR guided intervention (initially on 10/23 at [facility] and 10/26 here at [facility]. ? # Antiphospholipid antibody syndrome Extensive [...] MD Fellow, Hematology and Medical Oncology Pager: [phone] CONSULT PROG Observed: 10/31/2017 Status: COMPLETED Source: [place] 8:45 AM [facility] REPOSITORY HNO ID: [id number] Author: Vini Toledo MD Service: Nephrology Author [...] mg INTRAVENOUS q 4 H PRN HYDROmorphone REIMBURSEMENT COUNSELOR 0.5 mg/mL in NaCl 0.9% 100 mL [...] anuric CAPRICE on CKD stage 3 requiring CUTTER FINISHER since 10/26/2017 Baseline Cr 1.2 to 1.5 [...] medications for eGFR <10 mL/min Consent for CUTTER FINISHER: CUTTER FINISHER initiation date: 10/26/17 Consent obtained and in EMR. Will discuss with staff SIGNATURE: Laya Peters MD PATIENT NAME: Paloma Cannon DATE: October 31, 2017 TIME: 8:45 AM PAGER: [phone] TEACHING PHYSICIAN NOTE OF PERSONAL INVOLVEMENT IN [...] qD Vini Toledo MD, FASN - Pager [phone] October 31, 2017 @ 10:11 AM CONSULT PROG Observed: 10/31/2017 Status: COMPLETED Source: [place] 8:41 AM [facility] REPOSITORY HNO ID: [id number] Author: Lisseth Claudio MD Service: Apheresis Author [...] detected. No call per procedure. 10/31/17 00:32 FreddyKala Glucose (mg/dL) Date Value 10/30/2017 107 Potassium [...] PRE DIALYSIS Collected: 10/31/2017 Status: F Source: [place] 8:30 AM [facility] [facility] REPOSITORY TYPE CODE TESTS RESULT OUT OF REFERENCE UNITS RANGE LAB BUNPR 7-21 mg/dL High BUN, Pre 33 Dialysis Performed By: #### BUNPR, HBSAG, AHBSAG #### [facility] [address], [place] [address] HEPATITIS B SURF. AG Collected: 10/31/2017 Status: F Source: [place] 8:30 AM [facility] REPOSITORY TYPE CODE TESTS RESULT OUT OF REFERENCE UNITS RANGE LAB HBSAG Negative Hepatitis B Negative Surf. Ag Performed By: #### BUNPR, HBSAG, AHBSAG #### [facility] [address], [place] [address] HEPB SURFACE AB,QUAL Collected: 10/31/2017 Status: F Source: [place] 8:30 AM [facility] REPOSITORY TYPE CODE TESTS RESULT OUT OF REFERENCE UNITS RANGE LAB AHBSAG Negative HepB Surface Negative Ab,Qual Result Comment: NEGATIVE Performed By: #### BUNPR, HBSAG, AHBSAG #### [facility] [address] [place], [place] [address] CBC Collected: 10/30/2017 Status: F Source: [place] 11:38 PM [facility] REPOSITORY TYPE CODE TESTS RESULT OUT [...] detected. No call per procedure. 10/31/17 00:32 [facility] LAB MPV 9.0-12.7 fL MPV <<DO NOT REPORT>> LAB ABSNUC <0.01 k/uL 1.33 High Absolute nRBC Performed By: #### CBC, BMP, MG1, PHOS #### [facility] [address] [place], [place] [address] BASIC METABOLIC PANL Collected: 10/30/2017 Status: F Source: [place] 11:38 PM [facility] REPOSITORY TYPE CODE TESTS RESULT OUT OF REFERENCE UNITS RANGE LAB GLU 74-99 mg/dL High Glucose 107 Result Comment: The [place] Diabetes Association (ADA) provides guidance for cutoff [...] Standards of Medical Care in Diabetes 2016, [place] [employer]. Diabetes Care. 2016.39(Suppl 1). LAB [...] By: #### CBC, BMP, MG1, PHOS #### [facility] [address] [place] [address] MAGNESIUM Collected: 10/30/2017 Status: F Source: [place] 11:38 PM [facility] REPOSITORY TYPE CODE TESTS RESULT OUT OF REFERENCE UNITS RANGE LAB MG 1.7-2.3 mg/dL Magnesium 2.0 Performed By: #### CBC, BMP, MG1, PHOS #### [facility] [address] [place] [address] PHOSPHORUS Collected: 10/30/2017 Status: F Source: [place] 11:38 PM [facility] REPOSITORY TYPE CODE TESTS RESULT OUT OF REFERENCE UNITS RANGE LAB PHOS 2.7-4.8 mg/dL Phosphorus 3.2 Performed By: #### CBC, BMP, MG1, PHOS #### [facility] [address] [place] [address] CBC Collected: 10/30/2017 Status: F Source: [place] 6:50 PM [facility] REPOSITORY TYPE CODE TESTS RESULT OUT [...] Absolute nRBC Performed By: #### CBC #### [facility] [address] [place], [place] [address] XR ABDOMEN 1V SUPINE Observed: 10/30/2017 Status: F Source: [place] 6:16 PM [facility] REPOSITORY * * *Final Report* * [...] findings. IMPRESSION: NO ILEUS OR BOWEL OBSTRUCTION [facility] Transcribe Date/Time: Oct 30 2017 7:36P Dictated by : JJ DOBBS MD This examination was interpreted and the report reviewed and electronically signed by: JJ DOBBS MD on Oct 30 2017 7:37PM EST [id number] THERAPY NT Observed: 10/30/2017 Status: COMPLETED Source: [place] 5:36 PM [facility] REPOSITORY HNO ID: [id number] Author: Tamiko SanchezOt/LDevonte Nelson Service: Occupational Therapy Author Type: Occupational Therapist Type: Therapy (PT/OT/Speech/Resp) Filed: 10/30/2017 5:40 PM Note Text: Occupational Therapy Evaluation SERVICE DATE: 10/30/2017 SERVICE TIME: 1628 to 1651 ROOM: [place] [address] Recommended Discharge Disposition: Unable to determine due [...] daily living (ADL) Interventions Provided: Evaluation;Therapeutic Activity (10749) $ Evaluation-Moderate (70575) Billed Units: 1 unit Therapeutic Activity (07462) Treatment Minutes: 8 1 unit Skilled Intervention(s): [...] G CODE: OT 6 Clicks Score: 17 (10/30/17 9211) Self Care Current Status (G8987): CK (10/30/171627) Self Care Goal Status (G8988): CJ (10/30/171627) Based on clinical assessment and the score on the 6 Clicks Functional Assessment Tool, the G code and corresponding severity modifiers are documented above. SUBJECTIVE: Current Hospital Course: Chart reviewed; Patient is a 27 year old female admitted with RP bleed from [place], HG drops/trending down, requiring multiple units RBCs over last few days, hg today 7.6, patient with incr back pain- data control clerk pump Reason for Occupational Therapy Consult: decr [...] for this therapy evaluation/treatment. SIGNATURE: Tamiko Nelson OT/L PATIENT NAME: Paloma Cannon DATE: October 30, 2017 TIME: 5:36 PM PAGER: [phone] PLAN OF CARE Observed: 10/30/2017 Status: COMPLETED Source: [place] 4:32 PM [facility] REPOSITORY HNO ID: [id number] Author: Jcarlos Rand (Sand Sifter) Service: (none) Author Type: (none) Type: Plan of Care Filed: 10/30/2017 4:50 PM Note Text: Attestation signed by Rebekah Parada (Pharmacist) at 10/31/2017 7:35 AM MEDICATION RECONCILIATION Patient Name: Paloma Cannon : 1990 I confirm and agree with the information below. 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 - Iv Contrast [Iodine] Other: See Comments shuts kidneys down per patient - Rituximab Other: See Comments Elevated cardiac enzymes Current INSPECTOR FILTER TIP Medications: Prior to Admission medications as of [...] Rebekah Parada PharmD (Critical Care Pharmacist) - [id number] October 31, 2017 7:34 AM MEDICATION HISTORY [...] See Comments Elevated cardiac enzymes Preferred Pharmacy: [facility] [address] [place] [address], [place] [address] [address] [facility] [phone] Current INSPECTOR FILTER TIP Medications: Prior to Admission medications as of [...] needed. Unknown at Unknown time Jcarlos Rand (Sand Sifter) October 30, 2017 4:32 PM PROGRESS Observed: 10/30/2017 Status: COMPLETED Source: [place] 12:41 PM [facility] [place] REPOSITORY HNO ID: [id number] Author: Austen Choudhury Service: Critical Care Author [...] and Moving all extremities Infusion Medications HYDROmorphone REIMBURSEMENT COUNSELOR 0.5 mg/mL NaCl 0.9% Last Rate: 10 [...] Peripheral neuropathy - post-thrombotic syndrome Transferred from [place] for ongoing L RP bleeding. Major Interval Events: 10/26: Transferred from [place]. Hgb down to 5.5. CTA showing active [...] contrast, now requiring dialysis First HD at [place] on 10/25 with tunneled dialysis catheter placement [...] AND Plan PLAN: - Plasmapheresis q2 weeks ([facility] will arrange for possible PLEX Monday 10/30) - Continue prednisone 80mg daily - Hold anticoagulation until resolution of retroperitoneal bleed - Hematology following, appreciate recs - Vascular med has signed off Retroperitoneal hematoma 10/26/2017 - Present Overview Retroperitoneal bleed: s/p 7 units PRBCs s/p IR emobolization of left L3 artery at [place] on 10/23 IR embolization of left L2 and L3 arteries on 10/26 Current Assessment AND Plan Assessment: secondary to anticoagulation PLAN: - Monitor CBC and transfuse for Hgb<7 - Premedicate for transfusions - Hold anticoagulation - Heme following, appreciate recs - Increased gabapentin per pain management for associated abdominal pain, cont to wean off REIMBURSEMENT COUNSELOR pump Right groin pain 10/27/2017 - Present Overview 10/27: C/o acute pain this morning, access site for embolization at [place], no erythema or induration appreciated on exam, [...] 30, 2017 TIME: 12:41 PM PAGER/CONTACT #: [phone] [facility] STAFF PHYSICIAN NOTE OF PERSONAL INVOLVEMENT IN CARE I have reviewed the progress note obtained and documented by the physician pediatric physical therapy assistant and I personally participated in the [...] s/p IVC filter. Persistent abdominal pain on REIMBURSEMENT COUNSELOR pump. On 3 L/min of O2. Moraxella [...] minutes. SIGNATURE: Austen Choudhury MD [facility] PAGER:[phone] DATE of SERVICE: October 30, 2017 THERAPY NT Observed: 10/30/2017 Status: COMPLETED Source: [place] 11:34 AM [facility] [place] REPOSITORY HNO ID: [id number] Author: Brenda (Pt) Kt Service: Physical Therapy Author Type: Physical Therapist Type: Therapy (PT/OT/Speech/Resp) Filed: 10/30/2017 11:47 AM Note Text: Physical Therapy Evaluation SERVICE DATE: 10/30/2017 SERVICE TIME: 50 to 6 ROOM: [place] [address] Recommended Discharge Disposition: Unable to determine due [...] Diagnosis: Reduced mobility-other Interventions Provided: Therapeutic Activity (20736);Re-evaluation Therapeutic Activity (17854) Treatment Minutes: 23 2 units Skilled Intervention(s): [...] G CODE: PT 6 Clicks Score: 11 (10/30/17949) Mobility: Walking and Moving Around Current Status [...] Peripheral neuropathy - post-thrombotic syndrome Transferred from [place] for ongoing L RP bleeding. ? Major Interval Events: 10/26: Transferred from [place]. Hgb down to 5.5. CTA showing active [...] 30, 2017 TIME: 11:34 AM PAGER/CONTACT #: [phone] CASE MANAGEM Observed: 10/30/2017 Status: COMPLETED Source: [place] 11:16 AM [facility] REPOSITORY HNO ID: [id number] Author: Lisseth Coto (Sw) Service: Case Management Author Type: Steel Finisher Type: Care Mgt Progress Note Filed: 10/30/2017 [...] 30, 2017 TIME: 11:16 AM PAGER/CONTACT #: [phone] CBC Collected: 10/30/2017 Status: F Source: [place] 11:15 AM [facility] REPOSITORY TYPE CODE TESTS RESULT OUT [...] Comment: Reviewed Performed By: #### CBC #### [facility] [address] [place], [place] [address] THERAPY NT Observed: 10/30/2017 Status: COMPLETED Source: [place] 11:10 AM [facility] REPOSITORY HNO ID: [id number] Author: Tamiko (Pt) Adelaida Service: Physical Therapy Author Type: Physical Therapist Type: Therapy (PT/OT/Speech/Resp) Filed: 10/30/2017 11:20 AM Note Text: Physical Therapy Wound/Lymph Evaluation SERVICE DATE: 10/30/2017 SERVICE TIME: 0830 to 0924 ROOM: [place] [address] Recommended Discharge Disposition Comments: will require further [...] with: Patient TREATMENT INTERVENTIONS: Interventions Provided: Evaluation;Self Longterm Management (46936);Manual Therapy (90005) $ Evaluation-High (44333) Billed Units: 1 unit Self Longterm Management (54988) Treatment Minutes: 14 1 unit Skilled Intervention(s): [...] involved extremity. Written handouts provided Manual Therapy (44619) Treatment Minutes: 25 2 units Skilled Intervention: [...] femoral vein, Uncontrolled hypertension, Pain control on REIMBURSEMENT COUNSELOR pump and history of HIT ? Patient [...] 30, 2017 TIME: 11:10 AM PAGER/CONTACT #: [phone] XR CHEST 1V FRONTAL Observed: 10/30/2017 Status: F Source: [facility] 10:42 AM [facility]IC [facility]IN [facility]AMP[facility] REPOSITORY * [...] Cardiomediastinal silhouette: Stable cardiomediastinal silhouette. Other: . Glass Edger: [facility] Transcribe Date/Time: Oct 30 2017 11:34A Dictated by : STELLA COSME MD This examination was interpreted and the report reviewed and electronically signed by: STELLA COSME MD on Oct 30 2017 11:35AM EST [id number] CONSULT PROG Observed: 10/30/2017 Status: COMPLETED Source: [place] 8:29 AM [facility] REPOSITORY O ID: [id number] Author: Aj Keenan Service: Hematology Author Type: Physician Type: Consult Progress Note Filed: 10/30/2017 6:43 PM Note Text: ? [facility] DEPARTMENT OF HEMATOLOGIC ONCOLOGY AND BLOOD [...] mg INTRAVENOUS q 4 H PRN HYDROmorphone REIMBURSEMENT COUNSELOR 0.5 mg/mL in NaCl 0.9% 100 mL [...] IR guided intervention (initially on 10/23 at [facility] and 10/26 here at [facility]. ? # Antiphospholipid antibody syndrome Extensive [...] MD Fellow, Hematology and Medical Oncology Pager: [phone] STAFF ADDENDUM: I have reviewed the history, [...] clinical instability--readdress [place] [phone] CONSULT PROG Observed: 10/30/2017 Status: COMPLETED Source: [place] 7:48 AM [facility] REPOSITORY HNO ID: [id number] Author: Vini Toledo MD Service: Nephrology Author [...] mg INTRAVENOUS q 4 H PRN HYDROmorphone REIMBURSEMENT COUNSELOR 0.5 mg/mL in NaCl 0.9% 100 mL [...] in this interval not displayed. Recent Labs 10/29/17233410/29/17 1852 10/29/17 1150 WBC 17.31* 16.64* 13.78* [...] Labs 10/26/17 0229 LACT 1.5 Recent Labs 10/29/175 10/20/17 0415 06/09/17 1024 ALLA -- -- 156.0 -- 363.9* TRANSFERSAT -- -- 9* -- 12* B12 -- -- -- -- 646 HB 7.6* < > 8.9* < > -- < > = values in this interval not displayed. Recent Labs 10/29/17233410/26/17 0020 CA 9.3 < > 8.0* P [...] anuric CAPRICE on CKD stage 3 requiring CUTTER FINISHER since 10/26/2017 Baseline Cr 1.2 to 1.5 [...] once she is off CVVHD Consent for CUTTER FINISHER: CUTTER FINISHER initiation date: 10/26/17 Consent obtained and in EMR. Will discuss with staff SIGNATURE: Laya Peters MD PATIENT NAME: Paloma Cannon DATE: October 30, 2017 TIME: 8:12 AM PAGER: [phone] TEACHING PHYSICIAN NOTE OF PERSONAL INVOLVEMENT IN [...] FABY, mass effect on kidney - On CUTTER FINISHER since 10/26 #. Stage III CKD - [...] tomorrow Vini Toledo MD, FASN - Pager [phone] October 30, 2017 @ 1:35 PM CBC Collected: 10/29/2017 Status: F Source: [place] 11:35 PM [facility] REPOSITORY TYPE CODE TESTS RESULT OUT [...] detected. No call per procedure. G60 10/30/17 Magdal[facility]0 [facility] LAB MPV 9.0-12.7 fL MPV <<DO NOT REPORT>> LAB ABSNUC <0.01 k/uL 1.72 High Absolute nRBC Performed By: #### CBC, BMP, MG1, PHOS #### [facility] [address] [place], [place] [address] BASIC METABOLIC PANL Collected: 10/29/2017 Status: F Source: [place] 11:35 PM [facility] REPOSITORY TYPE CODE TESTS RESULT OUT OF REFERENCE UNITS RANGE LAB GLU 74-99 mg/dL High Glucose 115 Result Comment: The [place] Diabetes [employer] (ADA) provides guidance for cutoff [...] Standards of Medical Care in Diabetes 2016, [place] [employer]. Diabetes Care. 2016.39(Suppl 1). LAB [...] By: #### CBC, BMP, MG1, PHOS #### [facility] [address] [place] [id number] MAGNESIUM Collected: 10/29/2017 Status: F Source: [place] 11:35 PM [facility] REPOSITORY TYPE CODE TESTS RESULT OUT OF REFERENCE UNITS RANGE LAB MG 1.7-2.3 mg/dL Magnesium 2.2 Performed By: #### CBC, BMP, MG1, PHOS #### [facility] [address] [place] [address] PHOSPHORUS Collected: 10/29/2017 Status: F Source: [place] 11:35 PM [facility] REPOSITORY TYPE CODE TESTS RESULT OUT OF REFERENCE UNITS RANGE LAB PHOS 2.7-4.8 mg/dL Phosphorus 2.8 Performed By: #### CBC, BMP, MG1, PHOS #### [facility] [address] [place] [address] CBC Collected: 10/29/2017 Status: F Source: [place] 6:52 PM [facility] REPOSITORY TYPE CODE TESTS RESULT OUT [...] Absolute nRBC Performed By: #### CBC #### [facility] [address] [place], [place] [address] PROGRESS Observed: 10/29/2017 Status: COMPLETED Source: [place] 1:03 PM [facility] REPOSITORY HNO ID: [id number] Author: Christine Walker (Pa) Service: Critical Care Author Type: Physician Drywall Sander Type: Progress Notes Filed: 10/29/2017 1:41 PM Note Text: SERVICE DATE: 10/29/2017 SERVICE TIME: 1:03 PM MICU PROGRESS NOTE Admission Date: 10/25/2017 Hospital Day # 4 SUBJECTIVE Interval HPI: Still having pain despite PO oxycodone and REIMBURSEMENT COUNSELOR bolus of dilaudid OBJECTIVE Vital Signs (last filed) Range in last 24h Temp: 37.2 ?C (99 ?F) (10/29/17799) Temp Min: 36.2 ?C (97.2 ?F) Max: 37.2 ?C (99 ?F) Pulse: (!) 124 (10/29/17829) Pulse Min: 78 Max: 124 Resp: 18 (10/29/17829) Resp Min: 12 Max: 50 BP: 129/64 (10/29/17829) BP Min: 129/64 Max: 211/84 MAP Non Invasive (Mean Arterial Pressure): 91 (10/29/17829) MAP Non Invasive (Mean Arterial Pressure) Min: 90 Max: 121 No Data Recorded SpO2: 96 % (10/29/17829) SpO2 Min: 86 % Max: 100 % Pain Score: 6/10 (10/29/17599) Fluid Balance: Intake/Output Summary (Last 24 hours) at 10/29/17 0659 Last data filed at 10/29/17599 Gross per 24 hour Intake 972 ml Output 6293 ml Net -5321 ml Last Weight: 115.6 kg (254 lb 13.6 oz) (10/29/17599) Admit Weight: 112.2 kg (247 lb 5.7 [...] and Moving all extremities Infusion Medications HYDROmorphone REIMBURSEMENT COUNSELOR 0.5 mg/mL NaCl 0.9% Last Rate: 10 [...] Peripheral neuropathy - post-thrombotic syndrome Transferred from [place] for ongoing L RP bleeding. Major Interval Events: 10/26: Transferred from [place]. Hgb down to 5.5. CTA showing active [...] contrast, now requiring dialysis First HD at [place] on 10/25 with tunneled dialysis catheter placement [...] AND Plan PLAN: - Plasmapheresis q2 weeks ([facility] will arrange for PLEX Monday 10/30) - Continue prednisone 80mg daily - Hold anticoagulation until resolution of retroperitoneal bleed - Hematology following, appreciate recs - Vascular med has signed off Retroperitoneal hematoma 10/26/2017 - Present Overview Retroperitoneal bleed: s/p multiple PRBC transfusions s/p IR emobolization of left L3 artery at [place] on 10/23 IR embolization of left L2 and L3 arteries on 10/26 Current Assessment AND Plan Assessment: secondary to anticoagulation (Fondaparinux) PLAN: - Monitor CBC and transfuse for Hgb<7 - Premedicate for transfusions - Hold anticoagulation - REIMBURSEMENT COUNSELOR pump for RP associated pain (added basal rate), d/c oxycodone Right groin pain 10/27/2017 - Present Overview 10/27: C/o acute pain this morning, access site for embolization at [place], no erythema or induration appreciated on exam, [...] 29, 2017 TIME: 1:03 PM PAGER/CONTACT #: [phone] TYPE AND SCREEN Collected: 10/29/2017 Status: F Source: [place] 11:56 AM [facility] REPOSITORY TYPE CODE TESTS RESULT OUT OF REFERENCE UNITS RANGE LAB %ABR B ABO/RH(D) POSITIVE LAB % Antibody POS Screen Performed By: #### TSCR #### [facility] [address] [place], [place] [address] CBC Collected: 10/29/2017 Status: F Source: [place] 11:50 AM [facility] REPOSITORY TYPE CODE TESTS RESULT OUT [...] detected. No call per procedure. 10/29/17 1259 [facility] LAB MPV 9.0-12.7 fL MPV <<DO NOT REPORT>> LAB ABSNUC <0.01 k/uL 1.18 High Absolute nRBC Performed By: #### CBC #### [facility] [address] [place], [place] [address] PROGRESS Observed: 10/29/2017 Status: COMPLETED Source: [place] 11:11 AM [facility] REPOSITORY HNO ID: [id number] Author: Germán Lopez Service: Critical Care Author Type: Physician Type: Progress Notes Filed: 10/29/2017 11:18 AM Note Text: [facility] STAFF PHYSICIAN NOTE OF PERSONAL INVOLVEMENT IN CARE I have reviewed the progress note obtained and documented by the physician pediatric physical therapy assistant and I personally participated in the [...] Amlodipine increased UF at 350 Continue on REIMBURSEMENT COUNSELOR oxycodone for pain Gabapentin for neuropathy On [...] femoral vein Uncontrolled hypertension Pain control on REIMBURSEMENT COUNSELOR pump. History of HIT?? PLAN:? Vascular medicine [...] minutes. SIGNATURE: Germán Lopez MD [facility] PAGER:[phone] DATE of SERVICE: October 29, 2017 CONSULT PROG Observed: 10/29/2017 Status: COMPLETED Source: [place] 8:52 AM [facility] REPOSITORY [facility] ID: [id number] Author: Morteza Smart Service: Vascular Medicine Author [...] mg INTRAVENOUS q 4 H PRN HYDROmorphone REIMBURSEMENT COUNSELOR 0.5 mg/mL in NaCl 0.9% 100 mL [...] 29, 2017 TIME: 8:52 AM PAGER/CONTACT #: [phone] . CONSULT PROG Observed: 10/29/2017 Status: COMPLETED Source: [place] 6:56 AM [facility] REPOSITORY HNO ID: [id number] Author: Jonatan Blas Service: Nephrology Author Type: [...] mg INTRAVENOUS q 4 H PRN HYDROmorphone REIMBURSEMENT COUNSELOR 0.5 mg/mL in NaCl 0.9% 100 mL [...] vasculitic process - Access: [facility] TDC - CUTTER FINISHER initiated on 10/26/17 - No current signs [...] Daily weights - Strict I/O's Consent for CUTTER FINISHER: CUTTER FINISHER initiation date: 10/26/17 Consent obtained and in EMR. Dr. Laya Peters (pager [phone]) will assume care on MondayOctober 30 SIGNATURE: Day Vásquez MD PATIENT NAME: Paloma Cannon DATE: October 29, 2017 TIME: 6:56 AM PAGER: [phone] [facility] [place] [facility] STAFF PHYSICIAN NOTE OF PERSONAL INVOLVEMENT IN [...] Jonatan Blas MD Staff Nephrology and Hypertension [facility] Beeper Number: [id number] Date of Service: 10/29/2017 Time of Service: 9:21 AM CBC Collected: 10/29/2017 Status: F Source: [place] 6:24 AM [facility] REPOSITORY TYPE CODE TESTS RESULT OUT [...] Absolute nRBC Performed By: #### CBC #### [facility] [address] [place], [place] [address] NURSING PROG Observed: 10/29/2017 Status: COMPLETED Source: [place] 5:20 AM [facility] REPOSITORY HNO ID: [id number] Author: Jose (Rn) JEFF Woods Service: Nursing Author Type: Registered Nurse Type: Nursing Progress Note Filed: 10/29/2017 5:22 AM Note Text: Nursing Progress Note Patient Name: Paloma Cannon [id number] Daily Note: Pt was ordered 1 unit of platelet, staffed with [facility] chiquita team and was told not to give the platelet due to vascular medicine wants pt to avoid platelets transfusion as much as possible. Platelet was returned to the blood bank This note was completed by: Jose Woods RN BASIC METABOLIC PANL Collected: 10/28/2017 Status: F Source: [place] 11:52 PM [facility] REPOSITORY TYPE CODE TESTS RESULT OUT OF REFERENCE UNITS RANGE LAB GLU 74-99 mg/dL Glucose 91 Result Comment: The [place] Diabetes Association (ADA) provides guidance for cutoff [...] Standards of Medical Care in Diabetes 2016, [place] [employer]. Diabetes Care. 2016.39(Suppl 1). LAB [...] By: #### BMP, MG1, PHOS, CBC #### [facility] [address] [place], [place] [address] MAGNESIUM Collected: 10/28/2017 Status: F Source: [place] 11:52 PM [facility] REPOSITORY TYPE CODE TESTS RESULT OUT OF REFERENCE UNITS RANGE LAB MG 1.7-2.3 mg/dL Magnesium 1.9 Performed By: #### BMP, MG1, PHOS, CBC #### [facility] [address] [place], [place] [address] PHOSPHORUS Collected: 10/28/2017 Status: F Source: [place] 11:52 PM [facility] REPOSITORY TYPE CODE TESTS RESULT OUT OF REFERENCE UNITS RANGE LAB PHOS 2.7-4.8 mg/dL Phosphorus 3.4 Performed By: #### BMP, MG1, PHOS, CBC #### [facility] [address] [place], [place] [address] CBC Collected: 10/28/2017 Status: F Source: [place] 11:52 [facility] REPOSITORY TYPE CODE TESTS RESULT [...] By: #### BMP, MG1, PHOS, CBC #### [facility] [address] [place], [place] [address] CBC Collected: 10/28/2017 Status: F Source: [place] 7:47 PM [facility] REPOSITORY TYPE CODE TESTS RESULT OUT [...] Absolute nRBC Performed By: #### CBC #### [facility] [address] [place], [place] [address] PROGRESS Observed: 10/28/2017 Status: COMPLETED Source: [place] 1:58 PM [facility] REPOSITORY HNO ID: [id number] Author: Christine Walker (Pa) Service: Critical Care Author Type: Physician Drywall Sander Type: Progress Notes Filed: 10/28/2017 2:00 PM [...] Balance: Intake/Output Summary (Last 24 hours) at 10/28/17658 Last data filed at 10/28/17599 Gross per [...] and Moving all extremities Infusion Medications HYDROmorphone REIMBURSEMENT COUNSELOR 0.5 mg/mL NaCl 0.9% Last Rate: 30 mL/hr (04/21/18 0700) insulin regular Diagnostic tests reviewed today: [...] Peripheral neuropathy - post-thrombotic syndrome Transferred from [place] for ongoing L RP bleeding. Major Interval Events: 10/26: Transferred from [place]. Hgb down to 5.5. CTA showing active extravasation, IR embolization of left L2, L3 arteries 10/27: Hgb 6.6, continued to transfuse PRBCs, acute onset right groin pain 10/28: Hgb 6.5, additional PRBCs given Plan for Day: - Trend CBC and transfuse as needed - Hold anticoagulation - Monitor respiratory status - CVVH - wean off REIMBURSEMENT COUNSELOR pump to PO oxycodone ASSESSMENT AND PLAN [...] contrast, now requiring dialysis First HD at [place] on 10/25 with tunneled dialysis catheter placement [...] IR emobolization of left L3 artery at [place] on 10/23 IR embolization of left L2 and L3 arteries on 10/26 Current Assessment AND Plan Assessment: secondary to anticoagulation PLAN: - Monitor CBC and transfuse for Hgb<7 - Premedicate for transfusions - Hold anticoagulation - wean off REIMBURSEMENT COUNSELOR pump to PO oxycodone for L sided flank pain Right groin pain 10/27/2017 - Present Overview 10/27: C/o acute pain this morning, access site for embolization at [place], no erythema or induration appreciated on exam, [...] 28, 2017 TIME: 1:58 PM PAGER/CONTACT #: [phone] CBC Collected: 10/28/2017 Status: F Source: [place] 1:10 PM [facility] REPOSITORY TYPE CODE TESTS RESULT OUT [...] Absolute nRBC Performed By: #### CBC #### [facility] [address] [id number] CONSULT Observed: 10/28/2017 Status: COMPLETED Source: [place] 10:14 AM [facility] REPOSITORY HNO ID: [id number] Author: Lupillo Newman MD Service: Vascular Surgery [...] vein stents and IVC endograft (Endoglix AFX, 2013), who receives plasmapheresis q2 weeks, who presented to [place] and then [place] on 10/23 with severe stabbing left-sided abdominal pain radiating to the left arm/leg and was found to have a large left RP bleed, after which she was transferred to [facility] - her Fondaparinux has been held [...] No Prescriptions Prior to Admission: [] HYDROmorphone REIMBURSEMENT COUNSELOR CLINICIAN DOSE 0.5 mg/mL Inject 0.8 mL [...] mg INTRAVENOUS q 4 H PRN HYDROmorphone REIMBURSEMENT COUNSELOR 0.5 mg/mL in NaCl 0.9% 100 mL [...] endograft (Endoglix AFX, 2012), who presented to [place] and then [place] on 10/23 with severe stabbing left-sided abdominal pain radiating to the left arm/leg and was found to have a large left RP bleed, after which she was transferred to [facility] - her Fondaparinux has been held [...] 28, 2017 TIME: 10:14 AM PAGER/CONTACT #: [phone] PROGRESS Observed: 10/28/2017 Status: COMPLETED Source: [place] 8:36 AM [facility] REPOSITORY HNO ID: [id number] Author: Germán Lopez Service: Critical Care Author Type: Physician Type: Progress Notes Filed: 10/28/2017 8:50 AM Note Text: [facility] STAFF PHYSICIAN NOTE OF PERSONAL INVOLVEMENT IN CARE I have reviewed the progress note obtained and documented by the physician pediatric physical therapy assistant and I personally participated in the [...] femoral vein Uncontrolled hypertension Pain control on REIMBURSEMENT COUNSELOR pump. History of HIT?? PLAN:? Vascular medicine [...] minutes. SIGNATURE: Germán Lopez MD [facility] PAGER:[phone] DATE of SERVICE: October 28, 2017 CONSULT PROG Observed: 10/28/2017 Status: COMPLETED Source: [place] 6:54 AM [facility] REPOSITORY HNO ID: [id number] Author: Jonatan Blas Service: Nephrology Author Type: [...] 800 mg ORAL TID w MEALS HYDROmorphone REIMBURSEMENT COUNSELOR 0.5 mg/mL in NaCl 0.9% 100 mL [...] vasculitic process - Access: [facility] TDC - CUTTER FINISHER initiated on 10/26/17 - No current signs [...] Daily weights - Strict I/O's Consent for CUTTER FINISHER: CUTTER FINISHER initiation date: 10/26/17 Consent obtained and in EMR. Dr. Laya Peters (pager [phone]) will assume care on MondayOctober 30 SIGNATURE: Day Vásquez MD PATIENT NAME: Paloma Cannon DATE: October 28, 2017 TIME: 6:54 AM PAGER: [phone] [facility] [place] [facility] STAFF PHYSICIAN NOTE OF PERSONAL INVOLVEMENT [...] Jonatan Blas MD Staff Nephrology and Hypertension [facility] Beeper Number: [phone] Date of Service: 10/28/2017 Time of Service: 7:18 AM CONSULT PROG Observed: 10/28/2017 Status: COMPLETED Source: [place] 6:08 AM [facility] REPOSITORY HNO ID: [id number] Author: Morteza Smart Service: Vascular Medicine Author [...] 800 mg ORAL TID w MEALS HYDROmorphone REIMBURSEMENT COUNSELOR 0.5 mg/mL in NaCl 0.9% 100 mL [...] vein thrombosis in vessels visualized. ? Technologist: Samatna Macario RVS Referring physician: SAPNA WYATT Impression/Recommendations [...] lower extremity fistula, per vasc surgery in [place] surgically created, and no need for intervention [...] as DVT prophylaxis => One of our optics technical officer will come to wrap her legs today => Please avoid all heparin or heparin-related products SIGNATURE: Linnette Almendarez MD PATIENT NAME: Paloma Cannon DATE: October 28, 2017 TIME: 6:58 AM PAGER/CONTACT #: [phone] [facility] STAFF PHYSICIAN NOTE OF PERSONAL INVOLVEMENT IN [...] AM CBC Collected: 10/28/2017 Status: F Source: [place] 6:06 AM [facility] REPOSITORY TYPE CODE TESTS RESULT OUT [...] nRBC 1.23 Performed By: #### CBC #### [facility] [address] [place], [place] [address] BASIC METABOLIC PANL Collected: 10/28/2017 Status: F Source: [place] 4:01 AM [facility] REPOSITORY TYPE CODE TESTS RESULT OUT OF REFERENCE UNITS RANGE LAB GLU 74-99 mg/dL Glucose 92 Result Comment: The [place] Diabetes Association (ADA) provides guidance for cutoff [...] Standards of Medical Care in Diabetes 2016, [place] [employer]. Diabetes Care. 2016.39(Suppl 1). LAB [...] has been calibrated to be traceable to IDND. An eGFR <60 mL/min/1.73m2 for >3 months is consistent with chronic kidney disease. Refer to KDOQI guidelines for clinical interpretation. In patients with unstable renal function, e.g. those with acute kidney injury, the eGFR may not accurately reflect actual GFR. Performed By: #### BMP, MG1, PHOS #### [facility] [address] [address] MAGNESIUM Collected: 10/28/2017 Status: F Source: [place] 4:01 [facility] REPOSITORY TYPE CODE TESTS RESULT OUT OF REFERENCE UNITS RANGE LAB MG 1.7-2.3 mg/dL Magnesium 2.0 Performed By: #### BMP, MG1, PHOS #### [facility] [address] [address] PHOSPHORUS Collected: 10/28/2017 Status: F Source: [place] 4:01 [facility] REPOSITORY TYPE CODE TESTS RESULT OUT OF REFERENCE UNITS RANGE LAB PHOS 2.7-4.8 mg/dL Phosphorus 4.3 Performed By: #### BMP, MG1, PHOS #### [facility] [address] [address] CBC Collected: 10/28/2017 Status: F Source: [place] 12:05 [facility] REPOSITORY TYPE CODE TESTS RESULT OUT [...] nRBC 1.34 Performed By: #### CBC #### [facility] [address] [place], [place] [address] CBC Collected: 10/27/2017 Status: F Source: [place] 8:10 PM [facility] REPOSITORY TYPE CODE TESTS RESULT OUT [...] nRBC 1.07 Performed By: #### CBC #### [id number] [address] MAGNESIUM Collected: 10/27/2017 Status: F Source: [place] 4:23 PM [facility] REPOSITORY TYPE CODE TESTS RESULT OUT OF REFERENCE UNITS RANGE LAB MG 1.7-2.3 mg/dL Magnesium 2.1 Performed By: #### MG1, PHOS #### [facility] [place], [place] [address] PHOSPHORUS Collected: 10/27/2017 Status: F Source: [place] 4:23 PM [facility] REPOSITORY TYPE CODE TESTS RESULT OUT OF REFERENCE UNITS RANGE LAB PHOS 2.7-4.8 mg/dL High Phosphorus 5.4 Performed By: #### MG1, PHOS #### [facility] [address] FONDAPARINUX ASSAY Collected: 10/27/2017 Status: F Source: [place] 4:23 PM [facility] REPOSITORY TYPE CODE TESTS RESULT OUT [...] (body weight >100 kg) once daily, the qklk-kxihth-ywknpuic doses provide similar mean steady-state peaks and minimum plasma concentrations across all body weight categories. The mean peak steady-state plasma concentration is in the range of 1.20 to 1.26 mg/L. In these patients, the mean minimum steady-state plasma concentration is in the range of 0.46 to 0.62 mg/L. (Prescribing information for Arixtra from [employer]aker, April 2010) Note: The fondaparinux assay is performed by an anti-Xa methodology and that comcomitant therapy with unfractionated or low molecular weight heparin could falsely elevate the fondaparinux levels. Performed By: #### FONDXA #### [facility] [address] [place], [place] [address] CONSULT Observed: 10/27/2017 Status: COMPLETED Source: [place] 12:49 PM [facility] REPOSITORY HNO ID: [id number] Author: Norma Macias Service: Nephrology Author Type: [...] Medications Prescriptions Prior to Admission: [] HYDROmorphone REIMBURSEMENT COUNSELOR CLINICIAN DOSE 0.5 mg/mL Inject 0.8 mL [...] 800 mg ORAL TID w MEALS HYDROmorphone REIMBURSEMENT COUNSELOR 0.5 mg/mL in NaCl 0.9% 100 mL [...] October 26, 2017 TIME: 9:04 AM PAGER: [phone] Addendum Was started on CRRT last night with 3 K bath, Qd 2500 cc/hr, currently running well, UF at 100 cc/hr. Catherine Oh MD Fellow Nephrology and Hypertension Pager: [phone] October 27, 2017 9:18 AM Staff note: [...] 2017 PROGRESS Observed: 10/27/2017 Status: COMPLETED Source: [place] 12:30 PM [facility] REPOSITORY O ID: [id number] Author: Destinee Flores MD Service: Critical Care [...] and Moving all extremities Infusion Medications HYDROmorphone REIMBURSEMENT COUNSELOR 0.5 mg/mL NaCl 0.9% Last Rate: 30 [...] Peripheral neuropathy - post-thrombotic syndrome Transferred from [place] for ongoing L RP bleeding. Major Interval Events: 10/26: Transferred from [place]. Hgb down to 5.5. CTA showing active [...] contrast, now requiring dialysis First HD at [place] on 10/25 with tunneled dialysis catheter placement [...] IR emobolization of left L3 artery at [place] on 10/23 IR embolization of left L2 and L3 arteries on 10/26 Current Assessment AND Plan Assessment: secondary to anticoagulation PLAN: - Monitor CBC and transfuse for Hgb<7 - Premedicate for transfusions - Hold anticoagulation - REIMBURSEMENT COUNSELOR pump with dilaudid for pain control of L sided pain related to RP bleed Right groin pain 10/27/2017 - Present Overview C/o acute pain this morning, access site for embolization at [place], no erythema or induration appreciated on exam, exquisitely TTP Current Assessment AND Plan PLAN: - US of groin to assess arterial and venous flow - CT Abdomen/pelvis - Pedal pulse checks Q2 - Vascular med following, appreciate recs Plan of care discussed with: Patient and ICU Team SIGNATURE: Christine Walker PA-C PATIENT NAME: Palmoa Cannon DATE: October 27, 2017 TIME: 12:30 PM PAGER/CONTACT #: [phone] [facility] STAFF PHYSICIAN NOTE OF PERSONAL INVOLVEMENT IN CARE I have reviewed the progress note obtained and documented by the nurse practitioner/physician pediatric physical therapy assistant and I personally participated in the [...] ? SIGNATURE: Destinee Flores MD [facility] PAGER:[phone] DATE of SERVICE: October 27, 2017 TIME of SERVICE: 8:[address] ABD/PEL WO IVCON Observed: 10/27/2017 Status: F Source: [place] 12:21 PM [facility] REPOSITORY * * *Final Report* * * DATE OF EXAM: Oct 27 2017 12:21PM [facility] 0531 - CT ABD/PEL WO IVCON [...] ATELECTASIS/EDEMA WITH AN INFECTIOUS/INFLAMMATORY PROCESSES NOT EXCLUDED. Glass Edger: MURTAZA Transcribe Date/Time: Oct 27 2017 12:41P Dictated by : SANCHEZ WHITE MD This examination was interpreted and the report reviewed and electronically signed by: LYDIA FARIA DO on Oct 27 2017 4:26PM EST [id number] PROGRESS Observed: 10/27/2017 Status: COMPLETED Source: [place] 12:12 PM [facility] REPOSITORY O ID: [id number] Author: Allyson Goodson (Ct) Service: Radiology Author Type: Clinical Chute Operator Type: Progress Notes Filed: 10/27/2017 12:12 [...] PM CBC Collected: 10/27/2017 Status: F Source: [place] 11:35 AM [facility] REPOSITORY TYPE CODE TESTS RESULT OUT [...] nRBC 0.57 Performed By: #### CBC #### [facility] [address] [place], [place] [address] CONSULT PROG Observed: 10/27/2017 Status: COMPLETED Source: [place] 10:11 AM [facility] REPOSITORY HNO ID: [id number] Author: Morteza Smart Service: Vascular Medicine Author [...] 800 mg ORAL TID w MEALS HYDROmorphone REIMBURSEMENT COUNSELOR 0.5 mg/mL in NaCl 0.9% 100 mL [...] lower extremity fistula, per vasc surgery in [place] surgically created, and no need for intervention [...] as DVT prophylaxis => One of our optics technical officer will come to wrap her legs today => Please avoid all heparin or heparin-related products SIGNATURE: Linnette Almendarez MD PATIENT NAME: Paloma Cannon DATE: October 27, 2017 TIME: 11:13 AM PAGER/CONTACT #: [phone] . CBC Collected: 10/27/2017 Status: F Source: [place] 6:30 AM [facility] REPOSITORY TYPE CODE TESTS [...] nRBC 0.57 Performed By: #### CBC #### [id number] [address] HEMOGLOBIN Collected: 10/27/2017 Status: F Source: [place] 2:50 AM [facility] REPOSITORY TYPE CODE TESTS RESULT OUT OF REFERENCE UNITS RANGE LAB HGB 11.5-15.5 g/dL Low Hemoglobin 6.6 Performed By: #### HGB #### [address] [address] CBC Collected: 10/27/2017 Status: F Source: [place] 1:00 AM [facility] REPOSITORY TYPE CODE TESTS RESULT OUT [...] By: #### CBC, BMP, MG1, PHOS #### [facility] [address] [id number] BASIC METABOLIC PANL Collected: 10/27/2017 Status: F Source: [place] 1:00 AM [facility] REPOSITORY TYPE CODE TESTS RESULT OUT OF REFERENCE UNITS RANGE LAB GLU 74-99 mg/dL High Glucose 118 Result Comment: The [place] Diabetes Association (ADA) provides guidance for cutoff [...] Standards of Medical Care in Diabetes 2016, [place] [employer]. Diabetes Care. 2016.39(Suppl 1). LAB [...] By: #### CBC, BMP, MG1, PHOS #### [facility] [address] [id number] MAGNESIUM Collected: 10/27/2017 Status: F Source: [place] 1:00 AM [facility] REPOSITORY TYPE CODE TESTS RESULT OUT OF REFERENCE UNITS RANGE LAB MG 1.7-2.3 mg/dL Magnesium 2.1 Performed By: #### CBC, BMP, MG1, PHOS #### [facility] [address] [id number] PHOSPHORUS Collected: 10/27/2017 Status: F Source: [place] 1:00 AM [facility] REPOSITORY TYPE CODE TESTS RESULT OUT OF REFERENCE UNITS RANGE LAB PHOS 2.7-4.8 mg/dL High Phosphorus 7.1 Performed By: #### CBC, BMP, MG1, PHOS #### [facility] [address] [place], [place] [address] PLAN OF CARE Observed: 10/26/2017 Status: COMPLETED Source: [place] 9:57 PM [facility] REPOSITORY HNO ID: [id number] Author: Daysi Kohli Service: Critical Care Author [...] DO CBC Collected: 10/26/2017 Status: F Source: [place] 8:20 PM [facility] REPOSITORY TYPE CODE TESTS RESULT OUT [...] Performed By: #### CBC, MG1, PHOS #### [facility] [address] [address] MAGNESIUM Collected: 10/26/2017 Status: F Source: [place] 8:20 PM [facility] REPOSITORY TYPE CODE TESTS RESULT OUT OF REFERENCE UNITS RANGE LAB MG 1.7-2.3 mg/dL Magnesium 2.1 Performed By: #### CBC, MG1, PHOS #### [facility] [address] [id number] PHOSPHORUS Collected: 10/26/2017 Status: F Source: [place] 8:20 PM [facility] REPOSITORY TYPE CODE TESTS RESULT OUT OF REFERENCE UNITS RANGE LAB PHOS 2.7-4.8 mg/dL High Phosphorus 8.5 Performed By: #### CBC, MG1, PHOS #### [facility] [address] [address] BRIEF OP NOT Observed: 10/26/2017 Status: COMPLETED Source: [place] 5:59 PM [facility] REPOSITORY HNO ID: [id number] Author: Yong Rosales Service: Interventional Radiology Author Type: Physician Type: Brief Op Note Filed: 10/26/2017 6:01 PM Note Text: BRIEF OPERATIVE / PROCEDURE NOTE LOG ID: [id number] SURGERY/PROCEDURE DATE: 10/26/2017 INCISION/PROCEDURE START TIME: 3:58 PM INCISION CLOSE/PROCEDURE END TIME: 5:01 PM SURGEON(S)/PROCEDURALIST(S) AND CROWN ATTACHER(S): Surgeon(s) and Role: * Yong Rosales - [...] 26, 2017 TIME: 5:59 PM PAGER/CONTACT #: [phone] IR VISCERAL EMBOLIZATION Observed: 10/26/2017 Status: F Source: [place] 5:01 PM [facility] REPOSITORY * * *Final Report* * * DATE OF EXAM: Oct 26 2017 5:01PM [facility] 0826 - IR VISCERAL EMBOLIZATION / [...] Kerma: 837.3 mGy Dose Area Product (DAP): 617741.0 mGy*cm2 Fluoro Time: 19:24 min:sec Radiation dose [...] vein stent, femoral head and palpation. A [employer] wire is advanced under fluoroscopic guidance into the aorta followed by a 5 [place] vascular sheath which was attached to normal [...] to terminate a 2 x 3 mm [place] microcoils followed by a single 3 mm [...] Specimens: 0: ATTENDING RADIOLOGIST: Yong Rosales M.D. CROWN ATTACHER: None The procedure was performed by the: attending radiologist, without an pediatric physical therapy assistant. The attending radiologist performed the following [...] ADDITIONAL EMBOLIZATION OF LEFT L3 DESCRIBED ABOVE. Glass Edger: PSCB Transcribe Date/Time: Oct 27 2017 4:46A Dictated by : YONG ROSALES MD This examination was interpreted and the report reviewed and electronically signed by: YONG ROSALES MD on Oct 27 2017 5:07AM EST PT ED Observed: 10/26/2017 Status: COMPLETED Source: [place] 3:34 PM [facility] [place] REPOSITORY [facility] ID: [id number] Author: Anahi (Rn) JEFF Castrejon Service: Nursing Author Type: Registered [...] Signed By: ANAHI CASTREJON RN In Department: [facility] G060 FONDAPARINUX ASSAY Collected: 10/26/2017 Status: F Source: [place] 2:26 PM [facility] REPOSITORY TYPE CODE TESTS RESULT OUT [...] (body weight >100 kg) once daily, the rlgj-zfuwjg-lxldyvlj doses provide similar mean steady-state peaks and minimum plasma concentrations across all body weight categories. The mean peak steady-state plasma concentration is in the range of 1.20 to 1.26 mg/L. In these patients, the mean minimum steady-state plasma concentration is in the range of 0.46 to 0.62 mg/L. (Prescribing information for Arixtra from [employer], April 2010) Note: The fondaparinux assay is performed by an anti-Xa methodology and that comcomitant therapy with unfractionated or low molecular weight heparin could falsely elevate the fondaparinux levels. Performed By: #### FONDXA #### [facility] [address] [place], [place] [address] CBC Collected: 10/26/2017 Status: F Source: [place] 1:23 PM [facility] REPOSITORY TYPE CODE TESTS RESULT OUT [...] nRBC 0.26 Performed By: #### CBC #### [facility] [address] [place], [place] [address] PROGRESS Observed: 10/26/2017 Status: COMPLETED Source: [place] 12:39 PM [facility] [place] REPOSITORY HNO ID: [id number] Author: Destinee Flores MD Service: Critical Care [...] and Moving all extremities Infusion Medications HYDROmorphone REIMBURSEMENT COUNSELOR 0.5 mg/mL NaCl 0.9% Last Rate: 30 [...] Peripheral neuropathy - post-thrombotic syndrome Transferred from [place] for ongoing L RP bleeding. Major Interval Events: New Events (last 24hrs): 10/26: Transferred from [place]. Hgb down to 5.5. CTA showing active [...] IR emobolization of left L3 artery at [place]. Transferred 10/26 for further management. Current Assessment AND Plan Assessment: secondary to anticoagulation PLAN: - IR consulted - CTA abdomen/pelvis - IR embolization - Monitor CBC and transfuse as needed - Premedicate for transfusions - Hold anticoagulation - REIMBURSEMENT COUNSELOR pump with dilaudid for pain control of L sided pain related to RP bleed Severe CAPRICE (acute kidney injury) (HCC) 10/08/2015 - Present Overview CAPRICE on CKD III, 2/2 contrast, now requiring dialysis First HD at [place] on 10/25 with tunneled dialysis catheter placement [...] 26, 2017 TIME: 12:39 PM PAGER/CONTACT #: [phone] [facility] STAFF PHYSICIAN NOTE OF PERSONAL INVOLVEMENT IN CARE I have reviewed the progress note obtained and documented by the nurse practitioner/physician pediatric physical therapy assistant and I personally participated in the [...] ? SIGNATURE: Destinee Flores MD [facility] PAGER:[phone] DATE of SERVICE: October 26, 2017 TIME of SERVICE: 8:17 AM NUTRITION Observed: 10/26/2017 Status: COMPLETED Source: [place] 12:23 PM [facility] REPOSITORY HNO ID: [id number] Author: Ed[address] [facility] Service: NST-Nutrition Support Team Author Type: Registered [...] no intervention recommended. ?? She presented to [facility] ED on 10/23 due to severe stabbing left-sided abdominal pain radiating to left arm/leg. She had a CT abdomen that showed extensive left retroperitoneal hemorrhage with mass effect to the left kidney, and less extensive hemorrhage along the surface of the spleen and along the mesentery. She was transferred to [place] as ICU at [facility] was full. Present Diet Order: NPO [...] (257 lb 15 oz) 10/18/2016 114.306 kg [place] body weight 52.3 kg Estimated kilocalorie needs: 0837-2480 kilocalories determined by 25-30 kcal/kg ideal body weight Estimated protein needs: 78-105 grams determined by 1.5-2.0 g/kg [place] weight Estimated fluid needs: per MD NUTRITION [...] 800 mg ORAL TID w MEALS HYDROmorphone REIMBURSEMENT COUNSELOR 0.5 mg/mL in NaCl 0.9% 100 mL [...] 3 units SIGNATURE: Edel Guillen, QUINTEN, LD, [facility] PATIENT NAME: Paloma Cannon DATE: October 26, 2017 TIME: 12:23 PM PAGER: [phone] HISTORY PHYSICAL Observed: 10/26/2017 Status: COMPLETED Source: [place] 10:58 AM [facility] REPOSITORY [facility] ID: [id number] Author: Fredi Dykes Service: Interventional Radiology Author [...] 24 cm left retroperitoneal Hematoma, transferred to [place] for angiography by Dr. Gr which showed L3 lumbar arterial extravasation, embolized on 10/23/2017. The patient was transferred to [facility] for further management and pheresis, but [...] nephrotoxic agents - DVT (deep venous thrombosis) ([facility]) - Elevated CA-125 11/30/2013 244 - Essential hypertension 10/08/2015 Stable on home medications Plan: -continue to monitor on home meds - 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 Bivalirudin to Warfarin bridging - HIT (heparin-induced thrombocytopenia) ([facility]) - Nontoxic multinodular goiter - Obese - [...] October 26, 2017 TIME: 10:58 AM PAGER: [phone] NURSING PROG Observed: 10/26/2017 Status: COMPLETED Source: [place] 10:55 AM [facility] REPOSITORY [facility] ID: [id number] Author: Lili Kelley (Rn) JEFF Juarez Service: [...] AM PROGRESS Observed: 10/26/2017 Status: COMPLETED Source: [place] 10:55 AM [facility] [facility] ID: [id number] Author: Allyson Goodson (Ct) Service: Radiology Author Type: Clinical Chute Operator Type: Progress Notes Filed: 10/26/2017 10:55 [...] ABD/PELV WO/W Observed: 10/26/2017 Status: F Source: [facility] 10:55 [facility] REPOSITORY * * *Final Report* * * DATE OF EXAM: Oct 26 2017 10:55AM [facility] 0467 - CTA ABD/PELV WO/W IVCON [...] EFFUSION. URGENT RESULTS: Communicated with resident on-call MARGO, Daysi on 10/26/2017 at 8 p.m.. Glass Edger: MURTAZA Transcribe Date/Time: Oct 26 2017 11:55A Dictated by : YONG ROSALES MD This examination was interpreted and the report reviewed and electronically signed by: YONG ROSALES MD on Oct 26 2017 7:59PM EST [id number] CASE MGT INIT Observed: 10/26/2017 Status: COMPLETED [facility] REPOSIT[facility] HNO ID: [id number] Author: Lisseth Coto (Sw) Service: Social Work Author Type: Steel Finisher Type: Care Mgt Initial Assessment Filed: 10/26/2017 1:51 PM Note Text: CARE MANAGEMENT: ASSESSMENT AND DISCHARGE PLAN SERVICE DATE: 10/26/2017 SERVICE TIME: 9:15A.M. PRIMARY CARE PHYSICIAN: PEYTON ROGERS MD ADMISSION STATUS: Inpatient Needs Prior to Discharge: To Be Determined MEDICAL: Patient/Shiftman Stated Goals: To have reduction in symptoms Health [facility] [facility] Health Issues Impacting Discharge Plan: None Last Admission Date: Previous admit date: 10/23/2017 Is this Within the Past 30 days? No Advance Directive: Current Advance Directive: None Cooker Soda Assisted with AD Completion: Yes Action: Education [...] Wheelchair Has the Patient Been in a Retirement Facility in the Past 30 days? No [...] 0 I feel financially burdened by my [id number] expenses for my prescription medication: Disagree completely [...] at home. The Oxygen supplying company is [employer] . Pt;s medical goal is for bleeding to stop, and live a normal life. Pt needs are TBD. SIGNATURE: WINSTON Connors PATIENT NAME: aPloma Cannon DATE: October 26, 2017 TIME: 9:40 AM PAGER/CONTACT #: [phone] I have reviewed and agree with the above assessment. Pt admitted to MICU from OSH for ongoing L RP bleeding. Pt's Hgb down to 5.5, CTA showing active extravasation, plan on IR for further management if needed. Possible IHD vs CVVHD. Needs TBD. SW will continue to follow. SIGNATURE: Lisseth Coto SUPERVISOR INSPECTION AND TESTING, ECOMMERCE ANALYST PATIENT NAME: Paloma Cannon DATE: October 26, 2017 TIME: 9:40 AM PAGER/CONTACT #: [phone] CONSULT Observed: 10/26/2017 Status: COMPLETED Source: [place] 8:37 AM [facility] [place] REPOSITORY HNO ID: [id number] Author: Aj Keenan Service: Hematology Author Type: Physician Type: Consults Filed: 10/27/2017 6:53 PM Note Text: [facility] Initial Consult Note PATIENT NAME: Paloma Cannon [facility] #: [id number] ATTENDING PHYSICIAN: Dr. Keenan DATE OF SERVICE: 10/26/2017 Room/Bed: [place] [address] REASON FOR CONSULT: Antiphospholipid Antibody Syndrome Consulting [...] Fondaparinux 7.5mg and Prednisone. She presented to [facility] ED on 10/23 due to severe stabbing left-sided abdominal pain radiating to left arm/leg. She had a CT abdomen that showed extensive left retroperitoneal hemorrhage with mass effect to the left kidney, and less extensive hemorrhage along the surface of the spleen and along the mesentery. She was transferred to [place] as ICU at [facility] was full. ? ICU course at [place]: 10/23 Hb 4.8, received 2 units of [...] of pRBC ? She was transferred to [facility] for further management. Patient is in [...] 800 mg ORAL TID w MEALS HYDROmorphone REIMBURSEMENT COUNSELOR 0.5 mg/mL in NaCl 0.9% 100 mL [...] Lymph 1.00 - 4.00 k/uL 0.22 (L) Alexander% % 5.0 Abs Alexander <0.87 k/uL 1.09 (H) Eosin% % 0.0 Abs Eosin <0.46 k/uL 0.00 Baso% % 0.0 Abs Baso <0.11 k/uL 0.00 NRBC 0 /100 WBC 1 (H) Absolute nRBC <0.01 k/uL 0.22 (H) 0.22 (H) 0.26 (H) 0.19 (H) 0.33 (H) 0.57 (H) 0.57 (H) ANC(includeSEG+BAND) k/uL 20.29 Austin% % 1.0 Anisocytosis Present Left Shift Present [...] IR guided intervention (initially on 10/23 at [facility] and 10/26 here at [facility]. # Antiphospholipid antibody syndrome Extensive left [...] MD Fellow, Hematology and Medical Oncology Pager: [phone] STAFF ADDENDUM: I have reviewed the history, [...] Her INR was 1.0 on admission to [place]. She had severe left flank/abdominal pain, and [...] and dialysis begun. Patient then transferred to [facility]. Repeat embolization was necessary yesterday when [...] 2 doses and then had a possible MN. 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 ? Will recheck the fondaparinux level which has likely come down further. Okay to restart cyclophosphamide, plasmapheresis as scheduled. Will follow. ? [place] [phone] CONSULT Observed: 10/26/2017 Status: COMPLETED Source: [place] 7:38 AM [facility] REPOSIT[facility] HNO ID: [id number] Author: Morteza Smart Service: Vascular Medicine Author [...] Received 7u PRBC and then transferred to [facility] for further management. Will receive two more [...] 7.5) - Antiphospholipid antibody with hypercoagulable state ([facility]) 11/29/2016 Hx of APL syndrome c/b Multiple [...] nephrotoxic agents - DVT (deep venous thrombosis) ([facility]) - Elevated CA-125 11/30/2013 244 - Essential hypertension 10/08/2015 Stable on home medications Plan: -continue to monitor on home meds - 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 Bivalirudin to Warfarin bridging - HIT (heparin-induced thrombocytopenia) ([facility]) - Nontoxic multinodular goiter - Obese - [...] 800 mg ORAL TID w MEALS HYDROmorphone REIMBURSEMENT COUNSELOR 0.5 mg/mL in NaCl 0.9% 100 mL [...] with urination: No Blood in urine: No SENIOR MANAGER ASSET PROTECTION: Abnormal vaginal bleeding: N/A History of loss: [...] lower extremity fistula, per vasc surgery in [place] surgically created, and no need for intervention [...] 26, 2017 TIME: 7:39 AM PAGER/CONTACT #: [phone] . HEMOGLOBIN Collected: 10/26/2017 Status: F Source: [place] 6:40 AM [facility] REPOSIT[facility] TYPE CODE TESTS RESULT OUT OF REFERENCE UNITS RANGE LAB HGB 11.5-15.5 g/dL Low Alert Hemoglobin 5.5 Result Comment: Result checked and verified No clot detected. Called to and read back by: Gemma Ochoa G60 [facility] 10/26/17 Jerardo Munoz Performed By: #### HGB #### [facility] [address] [place] [address] LACTATE Collected: 10/26/2017 Status: F Source: [place] 2:29 AM [facility] REPOS[facility] TYPE CODE TESTS RESULT OUT OF REFERENCE UNITS RANGE LAB LACT 0.5-2.2 mmol/L Lactate 1.5 Performed By: #### LACT #### [place] [id number] [place] [address] TYPE AND SCREEN Collected: 10/26/2017 Status: F Source: [place] 1:15 AM [facility] REPOSIT[facility] TYPE CODE TESTS RESULT OUT OF REFERENCE UNITS RANGE LAB %ABR B ABO/RH(D) POSITIVE LAB % Antibody POS Screen Performed By: #### TSCR #### [facility] [address] [place] [address] PROTIME Collected: 10/26/2017 Status: F Source: [place] 12:20 AM [facility] REPOSIT[facility] TYPE CODE TESTS RESULT OUT OF RANGE REFERENCE UNITS LAB PSEC 9.7-13.0 sec PT Sec 10.5 LAB INR 0.9-1.3 PT INR 1.0 Result Comment: Vitamin K Antagonist (VKA) Therapeutic Range: INR 2 to 3 (Target INR of 2.5) Note: For patients treated with VKA drugs, such as warfarin, the [place] [employer] Physicians 2012 Guideline recommends [...] Chest 2012, 141:7S-47S Diogenes RA, et al. [facility] 2017, 70: 252-289 Performed By: #### PT, PTT, CMP, PHOS, CBCDIF #### [facility] [address] [place] [id number] APTT Collected: 10/26/2017 Status: F Source: [place] 12:20 AM [facility] REPOS[facility] TYPE CODE TESTS RESULT OUT [...] laboratory APTT reagent in use throughout the [facility]. Performed By: #### PT, PTT, CMP, PHOS, CBCDIF #### [facility] [address] [place], [place] [address] COMP METABOLIC PANEL Collected: 10/26/2017 Status: F Source: [place] 12:20 AM [facility] RE[facility] TYPE CODE TESTS RESULT OUT [...] mg/dL Glucose High 105 Result Comment: The [place] Diabetes Association (ADA) provides guidance for cutoff [...] Standards of Medical Care in Diabetes 2016, [place] Diabetes Association. Diabetes Care. 2016.39(Suppl 1). LAB [...] #### PT, PTT, CMP, PHOS, CBCDIF #### [facility] [address] [place], [place] [address] PHOSPHORUS Collected: 10/26/2017 Status: F Source: [place] 12:20 AM [facility] REPOS[facility] TYPE CODE TESTS RESULT OUT OF REFERENCE UNITS RANGE LAB PHOS 2.7-4.8 mg/dL High Phosphorus 8.4 Performed By: #### PT, PTT, CMP, PHOS, CBCDIF #### [facility] [address] [place], [place] [address] CBC AND DIFFERENTIAL Collected: 10/26/2017 Status: F Source: [place] 12:20 AM [facility] REPOSIT[facility] TYPE CODE TESTS RESULT OUT [...] Abs Lymph 0.22 Low LAB AMONO % Alexander% 5.0 LAB AAMONO <0.87 k/uL Abs Alexander 1.09 High LAB AEOS % Eosin% 0.0 LAB AAEOS <0.46 k/uL Abs Eosin 0.00 LAB ABASO % Baso% 0.0 LAB AABASO <0.11 k/uL Abs Baso 0.00 LAB NRBC 0 /100 WBC NRBCs 1 High LAB ABNRBC <0.01 k/uL Absolute nRBC 0.22 High LAB ABIMMG k/uL 20.29 ANC(includeSEG+BAND ) LAB AMETA % Austin% 1.0 LAB ANIIMI Anisocytosis Present LAB LFTIMI Left Shift Present LAB OVAIMI Ovalocytes Few LAB POLIMI Polychromasia Slight LAB PLTEST Platelet Estimate Platelet estimate decreased LAB DTYP DTYPE Manual Diff Performed By: #### PT, PTT, CMP, PHOS, CBCDIF #### [facility] [address] [place], [place] [address] STAPH AUREUS PCR Collected: 10/26/2017 Status: F Source: [place] 12:20 AM [facility] REPOSITORY TYPE CODE TESTS RESULT OUT OF REFERENCE UNITS RANGE LAB SASRC Nasal S aureus Spec Source LAB MRSRES Negative for MRSA MRSA by PCR. PCR LAB SARES Negative for Staph Staphylococcus aureus PCR aureus by PCR. Performed By: #### SAPCR #### [facility] [address] [place] [address] HISTORY PHYSICAL Observed: 10/26/2017 Status: COMPLETED Source: [place] 12:09 AM [facility] REPOSITORY HNO ID: [id number] Author: Aline Engle Service: Critical Care Author Type: Resident Type: HANDP Filed: 10/26/2017 4:29 AM Note Text: YU Beige HANDP PATIENT NAME: Paloma Cannon History [...] d/sandy on PO prednisone. She presented to [facility] ED on 10/23 due to severe stabbing left-sided abdominal pain radiating to left arm/leg. She had a CT abdomen that showed extensive left retroperitoneal hemorrhage with mass effect to the left kidney, and less extensive hemorrhage along the surface of the spleen and along the mesentery. She was transferred to [place] as ICU at [facility] was full. ICU course at [place]: 10/23 Hb 4.8, received 2 units of [...] morphine had no affect and even dilaudid REIMBURSEMENT COUNSELOR was insufficient, may need to readdress, dilaudid REIMBURSEMENT COUNSELOR for now Peripheral neuropathy: gabapentin 200 q12, [...] now requiring dialysis - first HD at [place] on 10/25 with tunneled dialysis catheter placement [...] Medications/Allergies Prescriptions Prior to Admission: [] HYDROmorphone REIMBURSEMENT COUNSELOR CLINICIAN DOSE 0.5 mg/mL Inject 0.8 mL [...] peripheral neuropathy, post-phlebitic syndrome?who was admitted to [facility] MICU on 10/13 for alveolar hemorrhage. She was discharged yesterday after she stabilized and reached her home around 6 PM. She started having severe left sided abdominal pain under her breast radiating down to thigh region and went back to [facility] ED. She had a CT abdomen at outside hospital. Showed extensive L. retroperitoneal Hemorrhage with mass effect to left kidney. Also less extensive hemorrhage present along the surface of the spleen and along mesentery. Transferred to MICU as [facility] had no beds. On arrival to MICU patient complained of severe excruciating pain in the left abdomen, 10/10 in intensity, sharp in quality radiating from Left breast to thigh region. Pain is constant per patient and only minimally improved with Dilaudid patient received in [facility]. ICU course: HG 4.8, lethargic c/o left flank pain poor relief with IV fentanyl. BP low but acceptable (SBP 100-120) Pt received 2 units emergency blood, IR consulted, underwent urgent L RP angiogram, found to have bleeding from multiple foci of the left L3 artery, -> embolized. 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 fistula [...] repet bmp 9PM Family requests transfer to [facility] . AC on hold in setting acute bleed 10/25: IV Lasix and Demedex diuretics did not improve u/o. Received 2 units PRBCs overnight with total of 7 units PRBCs since admission to . Is premedicated with diphenhydramine AND solu-cortef prior to each infusion of PRBCs.Nephrology consult to Dr Crandall who ordered HD through Apheresis port. Having problems with pain control. Has Dilaudid REIMBURSEMENT COUNSELOR. Added scheduled Percocet 1 q6h. Will continue [...] Gabapentin, reduced dose given renal failure -dilaudid REIMBURSEMENT COUNSELOR -0.2mg q 20 minutes no basal -percocet [...] daily) plasmapheresis due Monday will transfer to main campus by Monday 10/30 Prophylactic: - PPI -a/c held, scd's STONEMASON -CFV fistula, Vascular Surgery consulted -. fistula created in 2013 no need for intervention FULL CODE difficult airway seen and discussed with Dr Wyatt On transfer to list to [facility] Dr Womack contacting MICU staff to discuss transfer No main [facility] bed avail. today 10/25. SIGNATURE: Aline Engle MD, PGY-1 PATIENT NAME: Paloma Cannon DATE: October 26, 2017 TIME: 12:09 AM PAGER: [phone] Note: These recommendations are not final until staffed by provider [facility] STAFF PHYSICIAN NOTE OF PERSONAL INVOLVEMENT IN [...] overload Poor appetite due to edema Requesting library sales consultant involvement from those involved on [...] services: 50 minutes Britney Brady MD Respiratory [place] Beeper Number: [phone] Date of Service: 10/26/2017 PLAN OF CARE Observed: 10/25/2017 Status: COMPLETED Source: [place] 10:35 PM CLINIC OTHER CAMPUS REPOSITORY O ID: [id number] Author: Carito Ferrari(Pharmacist) Service: Pharmacy Author Type: [...] PHARMACIST October 26, 2017 11:43 AM Pager: [phone] 10/26/2017 11:43 AM Medication List START taking [...] doctor about these medications HYDROmorphone 0.5 mg/mL REIMBURSEMENT COUNSELOR CLINICIAN DOSE 0.5 mg/mL Inject 0.8 mL intravenously one time only for 1 dose. Ask about: Should I take this medication? Where to Get Your Medications Information about where to get these medications is not yet available ! 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 She was discharged after she stabilized but developed severe left sided abdominal pain radiating down to thigh. CT of abd at [facility] showed extensive L. retroperitoneal hemorrhage with mass effect to left kidney. Hemorrhage also to surface of spleen and mesentery. Transferred to MICU as [facility] had no beds. In , received 2 units PRBC AND underwent urgent L. RP angiogram in IR. Hemorrhage from multiple foci of L L3 artery embolized. Oliguric CAPRICE probably 2/2 contrast nephropathy. Family requests transfer to [facility] for scheduled plasmapheresis. DIAGNOSIS: Active Problems: CAPRICE (acute kidney injury) (HCC) HTN (hypertension) History of heparin-induced thrombocytopenia Peripheral neuropathy APS (antiphospholipid syndrome) (HCC) Recurrent deep vein thrombosis (DVT) (HCC) CKD (chronic kidney disease) stage 3, GFR 30-59 ml/min (HFpEF) heart failure with preserved ejection fraction (HCC) Obesity, Class III, BMI >= 40 (morbid [...] O/S First): Discharged as direct admit to [facility] for scheduled Plasmapheresis DISCHARGE MEDICATION: Discharge Medication List as of 10/25/2017 10:19 PM START taking these medications HYDROmorphone REIMBURSEMENT COUNSELOR CLINICIAN DOSE 0.5 mg/mL Inject 0.8 mL [...] Stopping: FUTURE APPOINTMENTS: Q2 weeks plasmapheresis ar [facility], [facility] TIME OF CARE (Use first blank if not applicable): TIME OF CARE: Discharge Management: I personally spent greater than 30 minutes involved in the discharge management of this patient. SIGNATURE: Navi Giang APRN.CNP PATIENT NAME: Paloma Cannon DATE: November 06, 2017 TIME: 4:36 PM PAGER/CONTACT #: [phone] NURSING PROG Observed: 10/25/2017 Status: COMPLETED Source: [place] 7:15 PM [facility] REPOSITORY HNO ID: [id number] Author: Kenisha (Rn) JEFF Amaya Service: (none) Author Type: Registered Nurse Type: Nursing Progress Note Filed: 10/25/2017 10:49 PM Note Text: Nursing Progress Note Patient Name: Paloma Cannon Patient Location: [place] [address] [address] 1915: Report received from day RN. 1999: Assessment complete pt is AANDO x3 and following commands, complaints of flank pain 03/19, encouraged use of REIMBURSEMENT COUNSELOR. Sinus rhythm on the monitor. SpO2 is 100% on 6L NC, will titrate down as able. For complete assessment see flow sheet. 2144: Pt received bed at [facility], [facility] bed 6. Critical Care transport ETA is 1 hour. 2149: Report called to [facility] JEFF Anguiano. 5: Belongings verified with pt. Percocet given early in anticipation of transport. 0: Critical care transport at bedside, Dilaudid gtt discontinued. 2230: Pt transported off the unit in stable condition. Pt's father Morgan notified of transfer as husbands phone number was not working. This note was completed by: Kenisha Amaya, JEFF CBC Collected: 10/25/2017 Status: F Source: [place] 6:14 PM [facility] REPOSITORY TYPE CODE TESTS RESULT [...] MPV REPORT>> Performed By: #### CBC #### [place] [address] PROGRESS Observed: 10/25/2017 Status: COMPLETED Source: [place] 3:47 PM CLINIC OTHER CAMPUS REPOSITORY HNO ID: [id number] Author: Navi (Sol) Rahat Service: Critical Care Author Type: Nurse Practitioner Type: Progress Notes Filed: 10/25/2017 4:14 PM Note Text: MICU PROGRESS NOTE WITH COORD CARE SERVICE DATE: 10/25/2017 SERVICE TIME: 12:00 Admission Date: 10/23/2017 Day #: 3 in the MICU. 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 She was discharged yesterday after she stabilized and reached her home around 6 PM. She started having severe left sided abdominal pain under her breast radiating down to thigh region and went back to [facility] ED. She had a CT abdomen at outside hospital. Showed extensive L. retroperitoneal Hemorrhage with mass effect to left kidney. Also less extensive hemorrhage present along the surface of the spleen and along mesentery. [facility] of severe excruci[facility] pain [...] artery, -> embolized. 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 fistula [...] repet bmp 9PM Family requests transfer to [facility] . AC on hold in setting acute bleed 10/25: IV Lasix and Demedex diuretics did not improve u/o. Received 2 units PRBCs overnight with total of 7 units PRBCs since admission to . Is premedicated with diphenhydramine AND solu-cortef prior to each infusion of PRBCs.Nephrology consult to Dr Crandall who ordered HD through [facility] port. Having problems with pain control. Has Dilaudid REIMBURSEMENT COUNSELOR. Added scheduled Percocet 1 q6h. Will continue [...] Gabapentin, reduced dose given renal failure -dilaudid REIMBURSEMENT COUNSELOR -0.2mg q 20 minutes no basal -percocet [...] daily) plasmapheresis due Monday will transfer to [facility] by Monday 10/30 Prophylactic: - PPI -a/c held, scd's STONEMASON -CFV fistula, Vascular Surgery consulted -. fistula created in 2013 no need for intervention FULL CODE difficult airway seen and discussed with Dr Wyatt On transfer to list to [facility] Dr Womack contacting MICU staff to discuss transfer No [facility] bed avail. today 10/25. OBJECTIVE: VITAL [...] ORAL q 6 H HYDROmorphone 0.5 mg/mL REIMBURSEMENT COUNSELOR CLINICIAN DOSE 0.4 mg 0.4 mg INTRAVENOUS [...] 20 mL 20 mL INTRAVENOUS PRN HYDROmorphone REIMBURSEMENT COUNSELOR 0.5 mg/mL in NaCl 0.9% 100 mL INTRAVENOUS CONTINUOUS predniSONE (DELTASONE) tab(s) 80 mg 80 mg ORAL DAILY sulfamethoxazole-trimethoprim 800-160 mg 1 tablet (BACTRIM DS,SEPTRA DS) 1 tablet ORAL - hydrocortisone topical cream 1% TOPICAL BID PRN INFUSIONS HYDROmorphone REIMBURSEMENT COUNSELOR 0.5 mg/mL Lines, Drains, and Airways Line [...] Care Time 40 minutes. SIGNATURE: Navi Giang APRN.CYTOTECHNOLOGIST SUPERVISOR PATIENT NAME: Paloma Cannon DATE: October 25, 2017 TIME: 3:47 PM PAGER/CONTACT #: [phone] NURSING PROG Observed: 10/25/2017 Status: COMPLETED Source: [place] 2:25 PM CLINIC OTHER [place] REPOSITORY HNO ID: [id number] Author: Roxane Campbell RN Service: Nursing Author Type: Registered Nurse Type: Nursing Progress Note Filed: 10/25/2017 4:57 PM Note Text: Nursing Progress Note Patient Name: Paloma Cannon Patient Location: -MICU36/-ICU-36 Daily Note:0800- Report and SBAR with offgoing RN, see flow sheet for details. CITY PLANT SUPERVISOR updated by offgoing nurse, will review labs etc 0830- Dr Crandall in for rounds, will order HD treatment, informed pt and discussed treatment 0900- Lab sent per order 0920- Electrical And Instrument Engineer in with MICU team for rounds, updated on status. Pt states pain in Left flank is at 40/10, orders placed for oral pain medication and will give clinician dose of dialudid 1000- Dialysis nurse arrived BS to set up for treatment 1220- Pt complaining of severe pain, rates 20/10, is undergoing HD treatment at this time. Notified Brandi CITY PLANT SUPERVISOR pt is continuously having severe pain, will discuss pain medication orders with cloud engagement partner 1320- HD treatment completed, PRBC's sent for, will administer solu-cortef and benedryl 1345- heavy assist OOB to recliner, pt weak but able to stand and pivot. 1425- PRBC's started, pt remains in recliner, states pain is somewhat better. Drinking liquid supplements. Received benedry and solu medrol prior to transfusion This note was completed by: Roxane Campbell RN PROGRESS Observed: 10/25/2017 Status: COMPLETED Source: [place] 11:26 AM [facility] OTHER [place] REPOSITORY HNO ID: [id number] Author: Allyson Rosas (Tech) Service: Dialysis Author Type: Chute Operator Type: Progress Notes Filed: 10/25/2017 11:27 AM Note Text: PATIENT EDUCATION TOPIC: PATIENT INFORMATION: Plan of Care PATIENT NAME: Paloma Cannon [facility] READINESS TO LEARN COGNITIVE ABILITY: Alert and [...] Rosas PROGRESS Observed: 10/25/2017 Status: COMPLETED Source: [place] 11:22 AM CLINIC OTHER CAMPUS REPOSITORY [facility] ID: [id number] Author: Allyson Rosas (Tech) Service: Dialysis Author Type: Chute Operator Type: Progress Notes Filed: 10/25/2017 12:50 [...] CASE MANAGEM Observed: 10/25/2017 Status: COMPLETED Source: [place] 10:52 AM [facility] OTHER CAMPUS REPOSITORY [facility]NO ID: [id number] Author: Aria Albarran (Sw) Service: Care Management Author Type: Steel Finisher Type: Care Mgt Progress Note Filed: 10/25/2017 10:54 AM Note Text: CARE MANAGEMENT PROGRESS NOTE SERVICE DATE: 10/25/2017 SERVICE TIME: 10:52 AM LOS: 2 days Per huddle. Pt [facility] Potentially before Monday. CM to follow and support. Pt home with spouse. Likely no skilled needs. SIGNATURE: ROBBI Dahl PATIENT NAME: Paloma Cannon DATE: October 25, 2017 TIME: 10:52 AM PAGER/CONTACT #: [phone] HEPATITIS B SURF. AG Collected: 10/25/2017 Status: F Source: [place] 10:35 AM [facility] OTHER [place] REPOSITORY TYPE CODE TESTS RESULT OUT OF REFERENCE UNITS RANGE LAB HBSAG Negative Hepatitis B Negative Surf. Ag Performed By: #### HBSAG #### [place] [address] PROGRESS Observed: 10/25/2017 Status: COMPLETED Source: [place] 9:07 AM [facility] REPOSITORY HNO ID: [id number] Author: Sapna Wyatt Service: Critical Care Author Type: Physician Type: Progress Notes Filed: 10/25/2017 6:30 PM Note Text: [facility] STAFF PHYSICIAN NOTE OF PERSONAL INVOLVEMENT IN [...] stents on AC, HIT, recent admission to [facility] (10/13 - 10/22) for acute hypoxic resp failure due to DAH requiring PLEX, who presented to OSH c/o left-sided abdominal pain, work-up c/w acute blood loss anemia from retroperitoneal bleeding, transferred to [facility] for further mgmt. ?? PLAN:? ?? [...] due to acute hemorrhage. Awaiting transfer to [facility] as she will need plasmapheresis. ? Patient/Family [...] minutes. SIGNATURE: Sapna Wyatt MD [facility] PAGER:[phone] DATE of SERVICE: 10/25/17 TIME of SERVICE: 9:13 AM CONSULT PROG Observed: 10/25/2017 Status: COMPLETED Source: [place] 8:53 AM CLINIC OTHER CAMPUS REPOSITORY [facility]NO ID: [id number] Author: Shaheen Crandall Service: Hypertension AND Nephrology [...] 20 mL 20 mL INTRAVENOUS PRN HYDROmorphone REIMBURSEMENT COUNSELOR 0.5 mg/mL in NaCl 0.9% 100 mL [...] mass index is 40.66 kg/(m2). Date 10/25/17 0700 - 10/26/17 0659 Shift 9560-0928 1092-7886 3258-0893 24 Hour Total I N T A [...] AM CBC Collected: 10/25/2017 Status: F Source: [place] 8:53 AM CLINIC OTHER CAMPUS REPOSITORY TYPE [...] nRBC 0.22 Performed By: #### CBC #### [place] [address] COMP METABOLIC PANEL Collected: 10/25/2017 Status: F Source: [place] 5:00 AM CLINIC OTHER CAMPUS REPOSITORY TYPE [...] By: #### CMP, MG1, PHOS, CBCDIF #### [place] [address] MAGNESIUM Collected: 10/25/2017 Status: F Source: [place] 5:00 AM [facility] OTHER [place] REPOSITORY TYPE CODE TESTS RESULT OUT OF REFERENCE UNITS RANGE LAB MG 1.7-2.6 mg/dL Magnesium 2.1 Performed By: #### CMP, MG1, PHOS, CBCDIF #### [place] [address] PHOSPHORUS Collected: 10/25/2017 Status: F Source: [place] 5:00 AM [facility] OTHER [place] REPOSITORY TYPE CODE TESTS RESULT OUT OF REFERENCE UNITS RANGE LAB PHOS 2.5-4.5 mg/dL High Phosphorus 8.6 Performed By: #### CMP, MG1, PHOS, CBCDIF #### [place] [id number] [place] [address] CBC AND DIFFERENTIAL Collected: 10/25/2017 Status: F Source: [place] 5:00 AM CLINIC OTHER CAMPUS REPOSITORY TYPE [...] Abs Lymph Low 0.22 LAB MONOS % Alexander% 9.0 LAB AAMONO <0.87 k/uL Abs Alexander High 1.97 LAB EOS % Eosin% 0.0 LAB AAEOS <0.46 k/uL Abs Eosin 0.00 LAB BASOS % Baso% 0.0 LAB AABASO <0.11 k/uL Abs Baso 0.00 LAB ABIMMG k/uL ANC(includeSEG+BAN 19.47 D) LAB META % Austin% 1.0 LAB ANIIMI Anisocytosis Present LAB LFTIMI Left Shift Present LAB OVAIMI Ovalocytes Few LAB POLIMI Polychromasia Slight LAB PLTEST Platelet Estimate Platelet estimate decreased LAB DTYP DTYPE Manual Diff Performed By: #### CMP, MG1, PHOS, CBCDIF #### [id number] [place] [address] CBC Collected: 10/24/2017 Status: F Source: [place] 10:30 PM CLINIC OTHER [place] REPOSITORY TYPE CODE TESTS RESULT OUT OF [...] nRBC 0.12 Performed By: #### CBC #### [id number] [place] [address] BASIC METABOLIC PANL Collected: 10/24/2017 Status: F Source: [place] 10:30 PM [facility] REPOSITORY TYPE CODE TESTS RESULT [...] Races 20 Performed By: #### BMP #### [place] [id number] [place] [address] Observed: 10/24/2017 Status: F Source: [place] RESPIRATORY CULT/STAIN 8:00 PM [facility] REPOSITORY Smear Result - Many Gram negative diplococci --> ABNORMAL ALERT Moderate --> ABNORMAL ALERT Yeast --> ABNORMAL ALERT Few --> ABNORMAL ALERT Gram positive bacilli --> ABNORMAL ALERT Many P olymorphonuclear leukocytes Few Epithelial cells Culture Result - Many Moraxella catarrhalis --> ABNORMAL ALERT Beta lactamase Positive --> ABNORMAL ALERT Many Normal respiratory zoila present Performed By: #### RCULST #### [facility] [address] [place], [place] [address] NURSING PROG Observed: 10/24/2017 Status: COMPLETED Source: [place] 7:58 PM [facility] OTHER CAMPUS REPOSITORY [facility] ID: [id number] Author: Angella (Rn) JEFF Barreto Service: Nursing Author Type: Registered Nurse Type: Nursing Progress Note Filed: 10/25/2017 8:08 AM Note Text: Nursing Progress Note Patient Name: Paloma Cannon Patient Location: [place] [address] Daily Note: 1930- Bedside report received from off going RN and care of patient assumed. 1999- Initial assessment completed as documented. Patient up to bedside commode to void. Patient had an XL BM. Patient has Dilaudid REIMBURSEMENT COUNSELOR pump infusing via bolus at 0.2mg. 2020- [...] RN PROGRESS Observed: 10/24/2017 Status: COMPLETED Source: [place] 7:47 PM CLINIC OTHER CAMPUS REPOSITORY [facility]NO ID: [id number] Author: Radha Daniels) Stephanie Service: Critical Care Author Type: Nurse Practitioner Type: Progress Notes Filed: 10/24/2017 7:50 PM Note Text: MICU PROGRESS NOTE WITH COORD CARE SERVICE DATE: 10/24/2017 SERVICE TIME: 929 Admission Date: 10/23/2017 Day #: 2 in the MICU. 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 [...] mesentery. She was transferred [facility]. On arrival to [...] artery, -> embolized. 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 fistula [...] repet bmp 9PM Family requests transfer [facility] . AC on hold in setting acute bleed Assessment/Plan retroperitoneal bleed 10/23. HG 4.8, required 4 units PRBC underwent IR embolization of left lumbar artery serous output from right groin pouch placed HG continues to drift down (expected), required additional 2 units post procedure Neuro: Peripheral neuropathy left flank pain Plan: -add Gabapentin, reduced dose given renal failure -dilaudid REIMBURSEMENT COUNSELOR -0.2mg q 20 minutes no basal Cardiovascular: [...] bilateral iliac stents and IVC endograft, 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, plasmapharesis q2 weeks, prednisone 5 mg qD); aslo has Hx of HIT Dx 2013 by [facility]. discharged 10/22 on fondaparinux currently on hold Plan: Consulted hematology, appreciate recs --plasmapheresis q 2 weeks and prednisone 80 mg daily; a prednisone taper by 20 mg every four days (with maintenance of prednisone 5 mg daily) plasmapheresis due Monday Prophylactic: - PPI STONEMASON -CFV fistula, Vascular Surgery consulted -. fistula created in 2013 no need for intervention FULL CODE difficult airway seen and discussed with Dr Wyatt on AM and late afternoon rounds transfer orders in for transfer to [facility] Dr Womack contacting MICU staff to [...] Intake/Output Summary (Last 24 hours) at 10/24/17 194 Last data filed at 10/24/17 1900 Gross [...] 20 mL 20 mL INTRAVENOUS PRN HYDROmorphone REIMBURSEMENT COUNSELOR 0.5 mg/mL in NaCl 0.9% 100 mL INTRAVENOUS CONTINUOUS predniSONE (DELTASONE) tab(s) 80 mg 80 mg ORAL DAILY sulfamethoxazole-trimethoprim 800-160 mg 1 tablet (BACTRIM DS,SEPTRA DS) 1 tablet ORAL hydrocortisone topical cream 1% TOPICAL BID PRN INFUSIONS HYDROmorphone REIMBURSEMENT COUNSELOR 0.5 mg/mL Lines, Drains, and Airways Line [...] NURSING PROG Observed: 10/24/2017 Status: COMPLETED Source: [place] 6:22 PM CLINIC OTHER CAMPUS REPOSITORY [facility]NO ID: [id number] Author: Dary SanchezRn) JEFF Mueller Service: (none) [...] ashley well.pt attempting to have a BM unsuccessful.CITY PLANT SUPERVISOR informed and orders placed. 1745 pt up in the ch from [facility]. 1800 pt remains up in the ch. in to see the pt update given.Vss.U/o remains minimal 1930 report to relief nurse. This note was completed by: Dary Mueller RN [facility] Observed: 10/24/2017 Status: COMPLETED Source: [place] 3:10 PM CLINIC OTHER CAMPUS REPOSITORY O ID: [id number] Author: Estela Sanchez (Chaplain) Service: Spiritual Care Author Type: Type: Allied Health Filed: 10/24/2017 3:14 PM Note Text: SPIRITUAL CARE PROGRESS NOTE SERVICE DATE: 10/24/2017 SERVICE TIME: 1500 Horse Buyer provided spiritual support through reflective listening and reinforcing ways pt uses to comfort and calm her self during anxiety attacks. Horse Buyer shared Psalm 23 and prayed with pt, who became tearful and expressed she had been comforted by the Psalm and the prayer. Pt expressed interest in using lavender for comfort and folder tier offered to bring some lavender scented inhalers, lotions, etc., to the pt which she readily accepted. Horse Buyer will bring this to pt later this afternoon and continue support. To contact the Spiritual Care Department: Please call [phone]. SIGNATURE: Chaplain Nova PATIENT NAME: Paloma Cannon DATE: October 24, 2017 TIME: 3:10 PM PAGER/CONTACT #: [phone] BASIC METABOLIC PANL Collected: 10/24/2017 Status: F Source: [place] 1:55 PM CLINIC OTHER CAMPUS REPOSITORY TYPE [...] Races 22 Performed By: #### BMP #### [place] [address] THROMBOGRAPH PANEL Collected: 10/24/2017 Status: F Source: [place] 1:55 PM CLINIC OTHER CAMPUS REPOSITORY TYPE [...] TEG results. 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 She [...] artery, -> embolized. 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 fistula [...] 20 mL 20 mL INTRAVENOUS PRN HYDROmorphone REIMBURSEMENT COUNSELOR 0.5 mg/mL in NaCl 0.9% 100 mL [...] (ml) 220 634 145 Net (ml) -220 3569 736 MNT Billing Type: Initial Assess/15 min 5 units SIGNATURE: Micaela Rice RD, PHILLIP PATIENT NAME: Paloma Cannon DATE: October 24, 2017 TIME: 12:28 PM PAGER: For further assistance and weekends please page the Group Pager [phone] CBC Collected: 10/24/2017 Status: F Source: [place] 12:00 PM [facility] OTHER [place] REPOSITORY TYPE CODE TESTS RESULT OUT OF [...] nRBC 0.14 Performed By: #### CBC #### [place] [address] CONSULT Observed: 10/24/2017 Status: COMPLETED Source: [place] 10:03 AM [facility] REPOSITORY HNO ID: [id number] Author: Shaheen Cradnall Service: Hypertension AND Nephrology Author Type: Physician Type: Consults Filed: 10/24/2017 10:19 AM Note Text: Dictation number: [id number] CAPRICE on CKD 3 CAPRICE likely from [...] ALLIED HEALTH Observed: 10/24/2017 Status: COMPLETED Source: [place] 9:24 AM [facility] REPOSITORY HNO ID: [id number] Author: Kandis (RtAllyson Isaac Service: Radiology Author Type: Chute Operator Type: Allied Health Filed: 10/24/2017 9:24 [...] 1V FRONTAL Observed: 10/24/2017 Status: F Source: [facility] 9:22 AM [facility] REPOSITORY * * *Final Report* [...] compatible with volume overload. Cardiomegaly again seen Glass Edger: MURTAZA Transcribe Date/Time: Oct 24 2017 9:32A Dictated by : ENA VILLA MD This examination was interpreted and the report reviewed and electronically signed by: ENA VILLA MD on Oct 24 2017 9:35AM EST [id number] CBC Collected: 10/24/2017 Status: F Source: [place] 8:40 AM [facility] OTHER [place] REPOSITORY TYPE CODE TESTS RESULT OUT OF [...] nRBC 0.17 Performed By: #### CBC #### [place] [id number] THROMBOGRAPH PANEL Collected: 10/24/2017 Status: F Source: [place] 8:40 AM [facility] REPOSITORY TYPE CODE TESTS RESULT [...] Account Credited Performed By: #### TEGPNP #### [facility] [place], [place] [address] [phone] NURSING PROG Observed: 10/24/2017 Status: COMPLETED Source: [place] 7:46 AM CLINIC OTHER CAMPUS REPOSITORY HNO ID: [id number] Author: Saundra (Rn) JEFF Choe Service: Critical Care Author Type: Registered Nurse Type: Nursing Progress Note Filed: 10/24/2017 8:08 AM Note Text: Nursing Progress Note Patient Name: Paloma Cannon Patient Location: [place] [address] Daily Note: 1929 Report received Complete assessment to follow 1999 Complete assessment done. Pt is awake, alert, oriented x3 Dilaudid REIMBURSEMENT COUNSELOR controlling pt's pain at this time NSR to BST on cardiac surgeon. Speeh clear VSS Pt is on O2 at 6 L NC SAO2 mid to upper 90's Respiratory rate will decrease to 6 when the pt is sleeping. Minimal yellow urine noted. Moderate amount of serous drainage from the right groin Site from IR. Taking po fluids without difficulty. 1999 Blood cultures drawn by the loom operator apprentice as ordered 2029 CBC., BMP, Blood cultures and Thrombograph blood work drawn from the Samantha catheter and sent to lab as ordered. 2234 Ese Arias from labs called regarding the Thrombograph panel. Stated that this is a mail out to [facility] Main and lab would need to [...] on assessment and events of the shift supervisor melting. 0735 PRBC's completed at this time. No adverse reaction noted. This note was completed by: Saundra Choe RN PROGRESS Observed: 10/24/2017 Status: COMPLETED Source: [place] 7:25 AM CLINIC OTHER CAMPUS REPOSITORY HNO ID: [id number] Author: Sapna Wyatt Service: Critical Care Author Type: Physician Type: Progress Notes Filed: 10/24/2017 12:36 PM Note Text: [facility] STAFF PHYSICIAN NOTE OF PERSONAL INVOLVEMENT IN [...] stents on AC, HIT, recent admission to [facility] (10/13 - 10/22) for acute hypoxic resp failure due to DAH requiring PLEX, who presented to OSH c/o left-sided abdominal pain, work-up c/w acute blood loss anemia from retroperitoneal bleeding, transferred to [facility] for further mgmt. ? PLAN: ? [...] hospitalization until then will need transfer to [facility]. HTN - hold home meds for now. [...] minutes. SIGNATURE: Sapna Wyatt MD [facility] PAGER:[phone] DATE of SERVICE: 10/24/17 TIME of SERVICE: 12:36 PM CONSULT Observed: 10/24/2017 Status: COMPLETED Source: [place] 5:57 AM CLINIC OTHER CAMPUS REPOSITORY HNO ID: [id number] Author: Lydia Roque Service: Vascular Surgery Author [...] on Prednisone, Cyclophosphamide, and recently admitted to [facility] 10/13- requiring mechanical ventilation and PLEX), DVT/PE?needing extensive percutaneous thrombectomy of her IVC and lower extremity veins followed by placement of B/L?iliac venous?stents and an?endograft into her IVC, on long-term AC, HIT, CKD III, HTN, HFrEF, peripheral neuropathy, post phlebitic syndrome, who was transferred from [facility] for retroperitoneal bleeding on 10/23/17. She is now s/p IR embolization of left L3 lumbar artery. 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 Per patient she has had these fistula since her multiple surgeries in [place] in 2013. After the surgery, she experiences lower extremity swelling, however she is able to ambulate. Her most recent DVT can was in 10/14/17 in [facility] and was negative for acute DVT. She has been on fondaparinux during her hospitalization(history of HIT) and prior to that has been mainatained on coumadin. Presently, she has no acute lower extremity symptoms except the right groin access site painful. Summary of Operations in [facility]: 10/02/2013 OPERATION PERFORMED: 1. Urgent [...] Cannulation of left internal jugular vein with 17-Gu[place] Bio-Medicus arterial cannula. 3. Cannulation of right internal jugular vein with 26-[place]atemalan GORE DrySeal for the Angiovac suction catheter. [...] 0 COMPOUNDED PRESCRIPTION Outpatient physical therapyPlease call [phone] to make an appointment Disp: 1 Each [...] 20 mL 20 mL INTRAVENOUS PRN HYDROmorphone REIMBURSEMENT COUNSELOR 0.5 mg/mL in NaCl 0.9% 100 mL [...] of the left L3 lumbar artery. ?2.4 Guatemalan microcatheter system was then used to select [...] on Prednisone, Cyclophosphamide, and recently admitted to [facility] 10/13- requiring mechanical ventilation and PLEX), DVT/PE?needing extensive percutaneous thrombectomy of her IVC and lower extremity veins followed by placement of B/L?iliac venous?stents and an?endograft into her IVC, on long-term AC, HIT, CKD III, HTN, HFrEF, peripheral neuropathy, post phlebitic syndrome, who was transferred from [facility] for retroperitoneal bleeding on 10/23/17. She [...] 24, 2017 TIME: 5:57 AM PAGER/CONTACT #: [phone] Agree wit keith. Pt seen and examined. Av fistulae in groin as noted. No sign of severe pain or active bleeding. Images reviewed. These fistulae are helpful for her prior venous interventions. Thus, should be left in place and simply observed. Please call for further concerns. thx.Lydia Mancini MD XR ABDOMEN 1V SUPINE Observed: 10/24/2017 Status: F Source: [place] 5:26 AM CLINIC OTHER CAMPUS REPOSITORY * [...] small bowel. Enteric tube has been removed. Glass Edger: PSCB Transcribe Date/Time: Oct 24 2017 5:33A Dictated by : WILFRED CURRY MD This examination was interpreted and the report reviewed and electronically signed by: WILFRED CURRY MD on Oct 24 2017 5:35AM EST [id number] [facility] Observed: 10/24/2017 Status: COMPLETED Source: [place] 5:16 AM [facility] REPOSITORY HNO ID: [id number] Author: Aline (Rt) Allyson Munoz Service: Radiology Author Type: Chute Operator Type: Allied Health Filed: 10/24/2017 5:27 [...] URINALYSIS WITH Collected: 10/24/2017 Status: F Source: [facility] 5:00 AM [facility] OTHER [place] REPOSITORY TYPE CODE TESTS RESULT OUT OF RANGE REFERENCE UNITS LAB UCOL Yellow Color Abnormal Straw Alert LAB [facility] Clear Clarity Abnormal Hazy Alert LAB UGLUC Negative mg/dL Glucose, Abnormal Urine 150 Alert LAB UBIL Negative Bilirubin, Urine Negative LAB [facility] Negative Ketones, Urine Negative LAB [facility] 1.005-1.030 Specific [place], Ur 1.009 LAB UHGB Negative Abnormal Hemoglobin/Blood, [...] Mucus Present Performed By: #### UAWMIC #### [place] [address] CBC Collected: 10/24/2017 Status: F Source: [place] 4:05 AM CLINIC OTHER CAMPUS REPOSITORY TYPE [...] Performed By: #### CBC, MG1, PHOS #### [place] [address] MAGNESIUM Collected: 10/24/2017 Status: F Source: [place] 4:05 AM [facility] OTHER CAMPUS REPOSITORY TYPE CODE TESTS RESULT OUT OF REFERENCE UNITS RANGE LAB MG 1.7-2.6 mg/dL Magnesium 2.1 Performed By: #### CBC, MG1, PHOS #### [place] [address] PHOSPHORUS Collected: 10/24/2017 Status: F Source: [place] 4:05 AM [facility] OTHER [place] REPOSITORY TYPE CODE TESTS RESULT OUT OF REFERENCE UNITS RANGE LAB PHOS 2.5-4.5 mg/dL High Phosphorus 7.8 Performed By: #### CBC, MG1, PHOS #### [address] [address] BASIC METABOLIC PANL Collected: 10/24/2017 Status: F Source: [place] 12:30 AM [facility] REPOSITORY TYPE CODE TESTS RESULT [...] Races 29 Performed By: #### BMP #### [place] [phone] CBC Collected: 10/24/2017 Status: F Source: [place] 12:20 AM [facility] REPOSITORY TYPE CODE TESTS RESULT [...] nRBC 0.19 Performed By: #### CBC #### [place] [address] CONSULT Observed: 10/24/2017 Status: COMPLETED Source: [place] 12:00 AM CLINIC OTHER CAMPUS REPOSITORY O ID: [id number] Author: Shaheen Crandall Service: Hypertension AND Nephrology Author Type: Physician Type: Consults Filed: 11/16/2017 5:35 PM Note Text: [facility] - Consultation PALOMA CANNON : 1990 AGE: 27 SEX: F ACCTNUM: [id number] HOSP SVC: [facility] LOCATION: [facility] ATTENDING PHYSICIAN: SAPNA WYATT DATE OF CONSULTATION: [...] acute kidney injury. She was at the [facility] from October 13 through October 22 for alveolar hemorrhage. She got home around 6 p.m. yesterday. She started having severe left- sided abdominal pain and went back to ER. She had a CT of the abdomen showing extensive retroperitoneal hemorrhage with mass effect on the left kidney and thus she was transferred here. There were no beds at the [facility]. She had an angiogram performed, which showed bleeding from her left L3 artery and this was embolized. She required 200 cc of IV contrast. 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 Her urine output has [...] 5.9. She is currently on a Dilaudid REIMBURSEMENT COUNSELOR for her pain. She does have multiple [...] questions or concerns. Shaheen Crandall M.D. Nephrology SB:[id number] /[id number] HOSP Observed: 10/24/2017 Status: COMPLETED Source: [place] 12:00 AM [facility] [place] REPOSITORY Patient:Paloma Cannon MRN: <[id number]> Height:5' 3(1.6 m) Weight:251 lb 15.8 oz [...] sevelamer carbonate 800 mg tab(s) (R[place]ELA) HYDROmorphone REIMBURSEMENT COUNSELOR 0.5 mg/mL in NaCl 0.9% 100 mL [...] Aline Engle MD 10/26/2017 4:29 AM Addendum [facility] PATIENT NAME: Paloma Cannon History of [...] d/sandy on PO prednisone. She presented to [facility] ED on 10/23 due to severe stabbing left-sided abdominal pain radiating to left arm/leg. She had a CT abdomen that showed extensive left retroperitoneal hemorrhage with mass effect to the left kidney, and less extensive hemorrhage along the surface of the spleen and along the mesentery. She was transferred to [place] as ICU at [facility] full. ICU course at [place]: 10/23 Hb 4.8, received 2 units of [...] morphine had no affect and even dilaudid REIMBURSEMENT COUNSELOR was insufficient, may need to readdress, dilaudid REIMBURSEMENT COUNSELOR for now Peripheral neuropathy: gabapentin 200 q12, [...] now requiring dialysis - first HD at [place] on 10/25 with tunneled dialysis catheter placement [...] Medications/Allergies Prescriptions Prior to Admission: [] HYDROmorphone REIMBURSEMENT COUNSELOR CLINICIAN DOSE 0.5 mg/mL Inject 0.8 mL [...] peripheral neuropathy, post-phlebitic syndrome?who was admitted to [facility] MICU on 10/13 for alveolar hemorrhage. She was discharged yesterday after she stabilized and reached her home around 6 PM. She started having severe left sided abdominal pain under her breast radiating down to thigh region and went back to [facility] ED. She had a CT abdomen at outside hospital. Showed extensive L. retroperitoneal Hemorrhage with mass effect to left kidney. Also less extensive hemorrhage present along the surface of the spleen and along mesentery. Transferred to MICU as [facility] no beds. On arrival to MICU patient complained of severe excruciating pain in the left abdomen, 10/10 in intensity, sharp in quality radiating from Left breast to thigh region. Pain is constant per patient and only minimally improved with Dilaudid patient received in [facility]. ICU course: HG 4.8, lethargic c/o left flank pain poor relief with IV fentanyl. BP low but acceptable (SBP 100-120) Pt received 2 units emergency blood, IR consulted, underwent urgent L RP angiogram, found to have bleeding from multiple foci of the left L3 artery, -> embolized. 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 fistula [...] repet bmp 9PM Family requests transfer [facility] . AC on hold in setting acute bleed 10/25: IV Lasix and Demedex diuretics did not improve u/o. Received 2 units PRBCs overnight with total of 7 units PRBCs since admission to . Is premedicated with diphenhydramine AND solu-cortef prior to each infusion of PRBCs.Nephrology consult to Dr Crandall who ordered HD through Apheresis port. Having problems with pain control. Has Dilaudid REIMBURSEMENT COUNSELOR. Added scheduled Percocet 1 q6h. Will continue [...] Gabapentin, reduced dose given renal failure -dilaudid REIMBURSEMENT COUNSELOR -0.2mg q 20 minutes no basal -percocet [...] daily) plasmapheresis due Monday will transfer to [facility] by Monday 10/30 Prophylactic: - PPI -a/c held, scd's STONEMASON -CFV fistula, Vascular Surgery consulted -. fistula created in 2013 no need for intervention FULL CODE difficult airway seen and discussed with Dr Wyatt On transfer to [facility] to [facility] Dr Womcak contacting MICU staff to discuss transfer No [facility] bed avail. today 10/25. SIGNATURE: Aline Engle MD, PGY-1 PATIENT NAME: Paloma Cannon DATE: October 26, 2017 TIME: 12:09 AM PAGER: [phone] Note: These recommendations are not final until staffed by provider [facility] STAFF PHYSICIAN NOTE OF PERSONAL INVOLVEMENT IN [...] overload Poor appetite due to edema Requesting library sales consultant involvement from those involved on [...] services: 50 minutes Britney Brady MD Respiratory [place] Beeper Number: [phone] Date of Service: 10/26/2017 Previous Version Linnette [...] nephrotoxic agents - DVT (deep venous thrombosis) ([facility]) - Elevated CA-125 11/30/2013 244 - Essential hypertension 10/08/2015 Stable on home medications Plan: -continue to monitor on home meds - 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 Bivalirudin to Warfarin bridging - HIT (heparin-induced thrombocytopenia) ([facility]) - Nontoxic multinodular goiter - Obese - [...] 02/20/2016 FAMILY HISTORY: Mother: Father: Siblings: { :63773::no} SOCIAL HISTORY: Smoking: { :86619::No} Drink alcohol: { :87983::no} : { :06028::no} Children: { :15559::no} Work outside the home: { :11876::no} Drug abuse: { :22637::no} STD's: { :75647::no} diphenhydrAMINE (BENADRYL) 50 mg capsule Take 1 [...] 800 mg ORAL TID w MEALS HYDROmorphone REIMBURSEMENT COUNSELOR 0.5 mg/mL in NaCl 0.9% 100 mL [...] Elevated cardiac enzymes CANCER SCREENING QUESTIONS: { :11349} Objective REVIEW OF SYSTEMS: GENERAL: Fever: { :88239::No} Chills: { :16662::No} Night sweats: { :29710::No} Changes in weight: { :35244::No} NEUROLOGICAL: Headaches: { :73344::No} Seizures: { :36214::No} Passing out: { :89983::No} Numbness, tingling or sensation of pins and needles: { :73785::No} HEAD, EYES, EARS, NOSE, AND THROAT: Changes in hearing: { :83293::No} Changes in vision: { :80571::No} Nose bleeds: { :42708::No} CARDIOVASCULAR: Chest pain or pressure: { :06217::No} Palpitations: { :25698::No} Irregular heart rate: { :75348::No} RESPIRATORY: Cough: { :35485::No} Wheezing: { :65462::No} Shortness of breath: { :62179::No} Shortness of breath with exertion: { :41755::No} Coughing up blood: { :13286::No} GASTROINTESTINAL: Abdominal discomfort: { :21217::No} Nausea: { :52309::No} Vomiting: { :27375::No} Diarrhea: { :83690::No} Constipation: { :62162::No} Difficulty swallowing: { :99158::No} Pain with swallowing: { :94980::No} Stomach pain after eating: { :19291::No} Passing blood with bowel movement: { :95110::No} Black tarry stool: { :02366::No} GENITOURINARY: Pain with urination: { :71495::No} Blood in urine: { :13082::No} SENIOR MANAGER ASSET PROTECTION: Abnormal vaginal bleeding: { :94822::No} History of loss: { :41810::No} EXTREMITY: Edema (swelling): { :22803::No} Pain with walking: { :98957::No} MUSCULOSKELETAL: Joint pain: { :17671::No} Joint swelling: { :85163::No} Back pain: { :86326::No} Muscle pain or ache: { :92169::No} SKIN: Rash: { :40643::No} Lesions: { :66858::No} Sores: { :93143::No} Ulcers: { :58645::No} Tenderness: { :49934::No} Skin cancer: { :55661::No} HEMATOLOGY: Easy bruising: { :53199::No} Blood transfusions: { :87260::No} PSYCHOLOGICAL: Do you ever feel blue or nervous: { :91939::No} OTHER: PHYSICAL EXAM: Vital Signs: BP 144/71 Pulse 97 Temp 36.5 ?C (97.7 ?F) (Oral) Resp 13 Ht 160 cm (5' 3) Wt 114.3 kg (251 lb 15.8 oz) SpO2 97% BMI 44.64 kg/m2 General: Neck: Cardiac: Respiratory: Abdominal/GI: Extremity: Skin: Pulse/vascular exam: DATA: Diagnostic tests reviewed for today's visit: { :383004} Component Latest Ref Rng AND Units 10/23/2017 [...] Flores MD, MD 10/26/2017 8:48 AM Incomplete [facility] STAFF PHYSICIAN NOTE OF PERSONAL INVOLVEMENT IN CARE I have reviewed the progress note obtained and documented by the nurse practitioner/physician pediatric physical therapy assistant and I personally participated in the [...] minutes. SIGNATURE: Destinee Flores MD [facility] PAGER:[phone] DATE of SERVICE: October 26, 2017 TIME of SERVICE: 8:17 AM Juan Christopher MD 10/26/2017 8:[address] [facility] Initial Consult Note PATIENT NAME: Paloma Cannon [facility] #: [id number] ATTENDING PHYSICIAN: DATE OF SERVICE: 10/26/2017 Room/Bed: [...] on PO prednisone. ? She presented to [facility] ED on 10/23 due to severe stabbing left-sided abdominal pain radiating to left arm/leg. She had a CT abdomen that showed extensive left retroperitoneal hemorrhage with mass effect to the left kidney, and less extensive hemorrhage along the surface of the spleen and along the mesentery. She was transferred to [place] as ICU at [facility] full. ? ICU course at [place]: 10/23 Hb 4.8, received 2 units of [...] management of alveolar hemorrhage. ? Presented to [facility] ED with hemoptysis/SOB - found to [...] nephrotoxic agents - DVT (deep venous thrombosis) ([facility]) - Elevated CA-125 11/30/2013 244 - Essential hypertension 10/08/2015 Stable on home medications Plan: -continue to monitor on home meds - 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 Bivalirudin to Warfarin bridging - HIT (heparin-induced thrombocytopenia) ([facility]) - Nontoxic multinodular goiter - Obese - [...] 800 mg ORAL TID w MEALS HYDROmorphone REIMBURSEMENT COUNSELOR 0.5 mg/mL in NaCl 0.9% 100 mL [...] MD Fellow, Hematology and Medical Oncology Pager: [phone] Catherine Oh MD, MD 10/26/2017 1:28 PM [...] Medications Prescriptions Prior to Admission: [] HYDROmorphone REIMBURSEMENT COUNSELOR CLINICIAN DOSE 0.5 mg/mL Inject 0.8 mL [...] 800 mg ORAL TID w MEALS HYDROmorphone REIMBURSEMENT COUNSELOR 0.5 mg/mL in NaCl 0.9% 100 mL [...] October 26, 2017 TIME: 9:04 AM PAGER: [phone] JUAN PABLO Romo 10/26/2017 1:51 PM Signed CARE MANAGEMENT: ASSESSMENT AND DISCHARGE PLAN SERVICE DATE: 10/26/2017 SERVICE TIME: 9:15A.M. PRIMARY CARE PHYSICIAN: PEYTON ROGERS MD ADMISSION STATUS: Inpatient Needs Prior to Discharge: To Be Determined MEDICAL: Patient/Shiftman Stated Goals: To have reduction in symptoms Health Insurance: [employer] Health Issues Impacting Discharge Plan: None Last Admission Date: Previous admit date: 10/23/2017 Is this Within the Past 30 days? No Advance Directive: Current Advance Directive: None Cooker Soda Assisted with AD Completion: Yes Action: Education [...] Wheelchair Has the Patient Been in a Retirement Facility in the Past 30 days? No SOCIAL: Living Arrangement: Home Lives With: Spouse Financial Resources: Disabled Primary Contact: Extended Emergency Contact Information Primary Emergency Contact: Morteza Cannon [place] Relation: Spouse Supportive: Yes Other Important Patient [...] 0 I feel financially burdened by my [id number] expenses for my prescription medication: Disagree completely [...] at home. The Oxygen supplying company is [employer] . Pt;s medical goal is for bleeding to stop, and live a normal life. Pt needs are TBD. SIGNATURE: WINSTON Connors PATIENT NAME: Paloma Cannon DATE: October 26, 2017 TIME: 9:40 AM PAGER/CONTACT #: [phone] I have reviewed and agree with the above assessment. Pt admitted to MICU from OSH for ongoing L RP bleeding. Pt's Hgb down to 5.5, CTA showing active extravasation, plan on IR for further management if needed. Possible IHD vs CVVHD. Needs TBD. SW will continue to follow. SIGNATURE: Lisseth VELEZ, ECOMMERCE ANALYST PATIENT NAME: Paloma Cannon DATE: October 26, 2017 TIME: 9:40 AM PAGER/CONTACT #: [phone] Previous Version ROXY Goodson, Tech 10/26/2017 10:55 [...] Her INR was 1.0 on admission to [place]. She had severe left flank/abdominal pain, and [...] angiogram and dialysis begun. Patient transferred [facility]. She's been on low-dose [...] d-dimer [place] [phone] Fredi Dykes MD 10/26/2017 11:07 AM Signed [...] 24 cm left retroperitoneal Hematoma, transferred to [place] for angiography by Dr. Gr which showed L3 lumbar arterial extravasation, embolized on 10/23/2017. The patient was transferred to [facility] for further management and pheresis, but [...] October 26, 2017 TIME: 10:58 AM PAGER: [phone] Mari Nova PA-C 10/26/2017 12:15 PM Written [...] and Moving all extremities Infusion Medications HYDROmorphone REIMBURSEMENT COUNSELOR 0.5 mg/mL NaCl 0.9% Last Rate: 30 [...] no intervention recommended. ?? She presented to [facility] ED on 10/23 due to severe stabbing left-sided abdominal pain radiating to left arm/leg. She had a CT abdomen that showed extensive left retroperitoneal hemorrhage with mass effect to the left kidney, and less extensive hemorrhage along the surface of the spleen and along the mesentery. She was transferred to [place] as ICU at [facility] was full. Present Diet Order: NPO [...] (257 lb 15 oz) 10/18/2016 114.306 kg [place] body weight 52.3 kg Estimated kilocalorie needs: 4592-0891 kilocalories determined by 25-30 kcal/kg ideal body weight Estimated protein needs: 78-105 grams determined by 1.5-2.0 g/kg [place] weight Estimated fluid needs: per MD NUTRITION [...] 800 mg ORAL TID w MEALS HYDROmorphone REIMBURSEMENT COUNSELOR 0.5 mg/mL in NaCl 0.9% 100 mL [...] 3 units SIGNATURE: Edel Guillen, RD, LD, [facility] PATIENT NAME: Paloma Cannon DATE: October 26, 2017 TIME: 12:23 PM PAGER: [phone] Mari Nova PA-C 10/26/2017 12:25 PM Written [...] Premedicate for transfusions - Hold anticoagulation - REIMBURSEMENT COUNSELOR pump with dilaudid for pain control of [...] and Moving all extremities Infusion Medications HYDROmorphone REIMBURSEMENT COUNSELOR 0.5 mg/mL NaCl 0.9% Last Rate: 30 [...] Peripheral neuropathy - post-thrombotic syndrome Transferred from [place] for ongoing L RP bleeding. Major Interval Events: New Events (last 24hrs): 10/26: Transferred from [place]. Hgb down to 5.5. CTA showing active [...] IR emobolization of left L3 artery at [place]. Transferred 10/26 for further management. Current Assessment AND Plan Assessment: secondary to anticoagulation PLAN: - IR consulted - CTA abdomen/pelvis - IR embolization - Monitor CBC and transfuse as needed - Premedicate for transfusions - Hold anticoagulation - REIMBURSEMENT COUNSELOR pump with dilaudid for pain control of L sided pain related to RP bleed Severe CAPRICE (acute kidney injury) (HCC) 10/08/2015 - Present Overview CAPRICE on CKD III, 2/2 contrast, now requiring dialysis First HD at [place] on 10/25 with tunneled dialysis catheter placement [...] 26, 2017 TIME: 12:39 PM PAGER/CONTACT #: [phone] Progress Notes ( MICU): Nelia Bernal RN [...] neuropathy, post-phlebitic syndrome who was admitted to [facility] MICU on 10/13 for alveolar hemorrhage. [...] mesentery. She was transferred to 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, plasmapharesis q2 weeks, prednisone [...] 0 COMPOUNDED PRESCRIPTION Outpatient physical therapyPlease call [phone] to make an appointment Disp: 1 Each [...] Kassandra Rios MD 10/23/2017 7:18 AM Signed [facility] STAFF PHYSICIAN NOTE OF PERSONAL INVOLVEMENT IN [...] on Prednisone, Cyclophosphamide, and recently admitted to [facility] 10/13- requiring mechanical ventilation and PLEX), DVT/PE?needing extensive percutaneous thrombectomy of her IVC and lower extremity veins followed by placement of B/L?iliac venous?stents and an?endograft into her IVC, on long-term AC, HIT, CKD III, HTN, HFrEF, peripheral neuropathy, post phlebitic syndrome, who was transferred this morning from [facility] ED for retroperitoneal bleeding. Ms. Cannon was recently discharged from [facility] where she was admitted 10/13- for [...] prior similar episodes. Ms. Cannon presented to [facility] ED where she was found to have a retroperitoneal bleeding on CT and Hb dropped to 5.7 g/dL. IMPRESSION: I am seeing Ms. 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 SIGNATURE: Kassandra Rios MD [facility] PAGER:[phone] DATE of SERVICE: October 23, 2017 Lynne Sprague, RN, RN 10/23/2017 7:29 AM Signed Nursing Progress Note Patient Name: Paloma Cannon Patient Location: [place] [id number]/-ICU-36 Daily Note: 0729 Text paged Deepa WATERS R: Bed 36: Hgb=4.8. Thanks. Please advise. Lynne This note was completed by: JEFF Rizvi MD 10/23/2017 2:43 PM Signed [facility] STAFF PHYSICIAN NOTE OF PERSONAL INVOLVEMENT IN [...] stents on AC, HIT, recent admission to [facility] (10/13 - 10/22) for acute hypoxic resp failure due to DAH requiring PLEX, who presented to OSH c/o left-sided abdominal pain, work-up c/w acute blood loss anemia from retroperitoneal bleeding, transferred to [facility] for further mgmt. PLAN: Acute hypoxic [...] minutes. SIGNATURE: Sapna Wyatt MD [facility] PAGER:[phone] DATE of SERVICE: 10/23/17 TIME of SERVICE: [...] be found in the attached. SIGNATURE: Sunshine rG MD PATIENT NAME: Paloma Cannon DATE: October 23, 2017 TIME: 9:51 AM PAGER: [phone] Sunshine Gr MD 10/23/2017 12:01 PM Signed BRIEF OPERATIVE / PROCEDURE NOTE SURGERY/PROCEDURE DATE: 10/23/17 INCISION/PROCEDURE START TIME: INCISION CLOSE/PROCEDURE END TIME: SURGEON(S)/PROCEDURALIST(S) AND CROWN ATTACHER(S): Maximino Gr - Primary SURGERY/PROCEDURE(S): L RP angiogram and L3 embolization ANESTHESIA: Moderate sedation FINDINGS: Bleeding from multiple foci of from left L3, embolized with gelfoam and coils. Large STONEMASON->CFV fistula ESTIMATED BLOOD LOSS: Minimal SPECIMENS: None COMPLICATIONS: None PRE-OP/PRE-PROCEDURE DIAGNOSIS: Left RP bleed POST-OP/POST-PROCEDURE DIAGNOSIS: Left L3 hemorrhage, L STONEMASON-CFV AVF SIGNATURE: Sunshine Gr MD PATIENT NAME: [...] 23, 2017 TIME: 12:35 PM PAGER/CONTACT #: [phone] Ghazala Bailey 10/23/2017 2:22 PM Signed MEDICATION HISTORY AND MEDICATION RECONCILIATION Patient Name:Karyna Cannon : 1990 Source of history:[facility] records: discharge note on 10/22/17 Medication Nonadherence Identified: No barriers noted The above information represents the best possible medication history: Yes Reconciliation completed? Yes All INSPECTOR FILTER TIP medications addressed by LIP -Amlodipine; zyrtec; fondaparinux [...] See Comments Elevated cardiac enzymes Preferred Pharmacy: [facility] pharmacy Current INSPECTOR FILTER TIP Medications: Prior to Admission medications as of 10/23/17 0602 Medication Sig Last Dose Taking predniSONE (DELTASONE) 20 mg tablet Take 4 tablets by mouth once daily for 8 days. COMPOUNDED PRESCRIPTION Outpatient physical therapy Please call [phone] to make an appointment fondaparinux (ARIXTRA) 2.5 [...] Prior to Discharge: To Be Determined MEDICAL: Patient/Shiftman Stated Goals: To have reduction in symptoms [...] [place] Has the Patient Been in a Retirement Facility in the Past 30 days? No [...] 0 I feel financially burdened by my [id number] expenses for my prescription medication: Disagree completely [...] Unit. She was just discharged home from [facility] yesterday. The patient lives with her and was independent prior to admission. She has home oxygen provided through [facility]. No skilled needs are anticipated but SW remains available if any needs are identified. 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 On Fondaparinux 7.5mg and on Prednisone 80mg prior to discharge. She was to taper prednisone on discharge. She underwent Plasma exchange 10/16 and 10/18 and is scheduled again 10/30. After her journey home yesterday she developed severe left flank pain and her brought her to [facility]. Today she had MULTIPLE FOCI OF [...] to Warfarin bridging - HIT (heparin-induced thrombocytopenia) ([facility]) - Nontoxic multinodular goiter - Obese - [...] 20 mL 20 mL INTRAVENOUS PRN HYDROmorphone REIMBURSEMENT COUNSELOR 0.5 mg/mL in NaCl 0.9% 100 mL [...] Abs Lymph 1.00 - 4.00 k/uL 1.03 Alexander% % 3.0 Abs Alexander <0.87 k/uL 0.52 Eosin% % 0.0 Abs [...] Main recently and has been discontinued. [facility] is a feature of her APS and she will continue plasmapheresis q 2 weeks and prednisone 80 mg daily; a prednisone taper by 20 mg every four days (with maintenance of prednisone 5 mg daily) is recommended. I discussed the case with her public health outreach worker at [facility], Dr. Andujar. Bharat Morillo M.D. Lynne Sprague, RN, RN 10/23/2017 7:45 PM Addendum Nursing Progress Note Patient Name: Paloma Cannon [facility] Daily Note: 07 Shift report received from off-going RN. 07 Gemma Maradiaga, lab personnel notified this RN of HgB=10/15. 0729 Text paged Deepa WATERS of most recent HgB as noted above. 0742 Tanika NEWMAN to contact blood bank. 0744 Per Blood bank, will take 2-4 hours until PRBCs available r/t antibodies. Notified Deepa WATERS AND Dr. Welch (Fellow from [facility]). ELLIOTT calls blood bank after discussion [...] blood bank form completed by Dr. Wyatt. CYTOTECHNOLOGIST SUPERVISOR also at bedside. POC includes IR this AM. 0825 Have spoken w/ Kevin Torres, Pharmacist re dilaudid REIMBURSEMENT COUNSELOR. Pending arrival of infusion to MICU. 0835 Per CYTOTECHNOLOGIST SUPERVISOR, ok for ice chips. W/o s/s of aspiration. Refuses oral care/brushing of teeth at this time. 0845 Have requested CELLULAR TOWER CLIMBER to request 2nd unit of PRBCs. Procedure for each unit is to run @ 125-150ml/h x15 min then if no obvious reaction, 999ml/h. Tolerating 1st 15 min and 999ml/h rate thereafter. Pending arrival of unit #2. 0850 Bag of Dialudid Delivered to bedside. Have discussed w/ CELLULAR TOWER CLIMBER POC which includes use of Dilaudid IVP until post IR procedure. 0856 Have spoken w/ CYTOTECHNOLOGIST SUPERVISOR of need for additional IV access as pt has single lumen Franchesca catheter (as well as apheresis cath). Discussed possible placement in IR. Per CYTOTECHNOLOGIST SUPERVISOR, after consulting w/ Dr. Wyatt, no additional central line placement to be placed - iff need be, will use apheresis catheter. Notified CYTOTECHNOLOGIST SUPERVISOR of RR min noted bbm - encouraged pt to beathe- concern for additional 0.5mg dilaudid order as pt somnolent after 1mg dilaudid and 50mg bendadryl. Continue to monitor. Hold 0.5mg for now and reassess post procedure. 0905 Per CYTOTECHNOLOGIST SUPERVISOR, POC includes RN to attempt PIV - [...] progress. As well, will reassess need for REIMBURSEMENT COUNSELOR v. IVP of dilaudid post procedure. 0923 [...] PRBCs should also be given emergently. 0956 [facility] notifies RN of need for emergent transfusion as noted above - [facility] to notify Blood Bank. 1028 3rd unit of PRBCs up at this time. Verified and vitals per protocol. Have called senior software managerEllen to inquire if imaging disc from [facility] present in pt's chart or belongings per request of Dr. Gr. 1039 No disc available but CT results/report brought to [employer] by senior software manager for Dr. Gr's review. 1100 Notified [facility] to request 4th unit of PRBCs. IR procedure continues in progress. 1123 Have spoken w/ Kevin Torres, Pharmacist re indwelling citrate per pt. Reviewed pt's allergy to Heprain (RONNIE) - Pharmacist to discuss w/ colleagues and f/up w/ RN. 1134 Kevin Torres notifies this RN of availability of Na Citrate 3ml syringes used for indewlling catheters. Order #[id number]. Will have CYTOTECHNOLOGIST SUPERVISOR order so that upon arrival in MICU, can indwell apheresis cath ports. 1145 Have notified deepa WATERS of order # and amount required (total 3.2ml) of Na Citrate as noted above. As well, updated to IR procedure as known by this RN. Per Dr. Gr, pt may be required for transfer to [facility] for complex vascular surgery as Dr. [...] W/ Kevin Brian re Na Citrate post independent living advisor, Katharine (pt has dialysis cath) and pt's allergy to heparim. 1242 and Father at bedside.Updated to pt's condition and answered questions as able. In particular, 4 units of PRBCs given, Coils placed in IR, to receive dilaudid REIMBURSEMENT COUNSELOR. Per pt, man-made fistulas in groin for increased blood flow to LEs. Pe rHusband, pt is to have next apheresis 10/30 and pt's PLTs are kept @ < [address]. [address] Wyatt as will need to coordinate transfer to [facility] for such. 1255 Dr. Morillo updated to pt's condition and in particular, pt has been to IR w/ coils, received 4 units for HgB 4.8 and due for apheresis 10/30. 1305 0.5mg dilaudid to be given for continued c/o pain. Will begin REIMBURSEMENT COUNSELOR Dialudid pump fernando. Dr. Morillo parted bedside. Awaiting arrival of REIMBURSEMENT COUNSELOR pump to bedside. 1307 Blood sample drawn from [facility], labeled, verified and sent to lab via tube system (CBC). 1313 1.6ml Na Citrate placed in each apheresis port. Pt on 3L NC. Continue to monitor. 7404-0701 R groin noted to be bleeding - moderate amt. Using ABD, pressure applied to R groin for all of this time. Bleeding stopped. Continue to monitor. 1410 R groin assessed - no further bleeding. W/o evidence of hematoma. Will continue to monitor. 1415 Reports some relief w/ REIMBURSEMENT COUNSELOR, however, SpO2 low 90s thus increased FiO2 to 4L/min. 1428 ELLIOTT notified of most recent HANDH 02/08/24.2 and pt request for diet. Tolerating sips and chips. Deepa WATERS to order reg diet. 1338 REIMBURSEMENT COUNSELOR Dilaudid began at this time. Instructed in use of demand button and dose and frequency. 1608 Dr. Wyatt at bedside. Thereafter, updated to pt's condition and answered questions. In particular, most recent HANDH and pt's every 4 hour CBC, and effectiveness of dilaudid REIMBURSEMENT COUNSELOR per pt report. 1616 Text paged Deepa WATERS @ [phone]: Bed 36: Reports itching, especially on chest AND back. Requesting benedryl. Please advise. Thanks. Lynne [phone] SR from Vascualr surgery at bedside. 173 Blood sample drawn from [facility], labeled and sent to lab via tube system. 1745 Pharmcy notified of need for prn hydrocortisone topical cream 1%. 1805 Vascular surgery resident notified this RN of POC to include b/l LE Duplex. 1814 C/o sweating. Temp 36.3. 3 ice packs placed: b/l axialla and posterior neck. 1821 REIMBURSEMENT COUNSELOR pump use as follows: 15ml total, Total given 7.5mg, 10/20 demand bolus' AND pt bolus 1.2mg. 1824 Text paged Deepa WATERS R: Bed 36: Low UOP. Past 2 hours were 10 AND 15ml. Please advise. Thanks. 1835 Text paged Deepa WATERS: Bed 36: We just sent the CBC @ 1730. Do you want lab to stick and then a draw from the [facility]? Please advise. Thanks. 1836 Text paged CYTOTECHNOLOGIST SUPERVISOR: Bed 36: For blood cultures. 1841 Deepa WATERS responded to above text: POC now includes: next CBC AND BMP @ 1999, 1 set of blood cxs to be drawn by lab and [facility] as notified pt had [...] 7:46 PM Signed MICU PROGRESS NOTE WITH [facility] CARE SERVICE DATE: 10/23/2017 SERVICE TIME: [...] peripheral neuropathy, post-phlebitic syndrome?who was admitted to [facility] MICU on 10/13 for alveolar hemorrhage. [...] mesentery. She was transferred to MIC[facility] as [facility]. On arrival to [...] artery, -> embolized. 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 fistula created in 2013 no need for intervention will arrange for US eval for thrombus. Assessment/Plan Neuro: Peripheral neuropathy left flank pain Plan: -pt drowsy hold Gabapentin -dilaudid REIMBURSEMENT COUNSELOR Cardiovascular: HFpEF: LVEF ~ 50% BP low [...] 20 mL 20 mL INTRAVENOUS PRN HYDROmorphone REIMBURSEMENT COUNSELOR 0.5 mg/mL in NaCl 0.9% 100 mL [...] cream 1% TOPICAL BID PRN INFUSIONS HYDROmorphone REIMBURSEMENT COUNSELOR 0.5 mg/mL Lines, Drains, and Airways Line [...] Care Time 35 minutes. SIGNATURE: Radha Brown APRN.CYTOTECHNOLOGIST SUPERVISOR PATIENT NAME: Paloma Cannon DATE: October 23, 2017 TIME: 7:43 PM PAGER/CONTACT #: [phone] Shaheen Crandall MD 10/24/2017 10:33 PM Unsigned Administration Vice President [facility] - Consultation PALOMA CANNON : 1990 AGE: 27 SEX: F ACCTNUM: [id number] HOSP SVC: [facility] LOCATION: [facility] ATTENDING PHYSICIAN: SAPNA WYATT DATE OF CONSULTATION: [...] kidney injury. She was at the Main [place] from October 13 through October 22 for alveolar hemorrhage. She got home around 6 p.m. yesterday. She started having severe left- sided abdominal pain and went back to ER. She had a CT of the abdomen showing extensive retroperitoneal hemorrhage with mass effect on the left kidney and thus she was transferred here. There were no beds at the [facility]. She had an angiogram performed, which showed bleeding from her left L3 artery and this was embolized. She required 200 cc of IV contrast. 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 Her urine output has [...] 5.9. She is currently on a Dilaudid REIMBURSEMENT COUNSELOR for her pain. She does have multiple [...] questions or concerns. Shaheen Crandall M.D. Nephrology SB:[id number] /[id number] RT Richardson, Tech 10/24/2017 5:27 AM Signed [...] Adriana Reeves MD, MD 10/25/2017 8:20 AM [facility] VASCULAR [place] VASCULAR SURGERY INITIAL CONSULT Service Date: 10/24/2017 [...] on Prednisone, Cyclophosphamide, and recently admitted to [facility] main campus 10/13- requiring mechanical ventilation and PLEX), DVT/PE?needing extensive percutaneous thrombectomy of her IVC and lower extremity veins followed by placement of B/L?iliac venous?stents and an?endograft into her IVC, on long-term AC, HIT, CKD III, HTN, HFrEF, peripheral neuropathy, post phlebitic syndrome, who was transferred from [facility] for retroperitoneal bleeding on 10/23/17. She is now s/p IR embolization of left L3 lumbar artery. 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 Per patient she has had these fistula since her multiple surgeries in [place] in 2013. After the surgery, she experiences lower extremity swelling, however she is able to ambulate. Her most recent DVT can was in 10/14/17 in [facility] and was negative for acute DVT. She has been on fondaparinux during her hospitalization(history of HIT) and prior to that has been mainatained on coumadin. Presently, she has no acute lower extremity symptoms except the right groin access site painful. Summary of Operations in [facility]: 10/02/2013 OPERATION PERFORMED: 1. Urgent [...] Cannulation of left internal jugular vein with 17-Guatem[place] [employer] arterial cannula. 3. Cannulation of right internal jugular vein with 26-Guatemalan GORE DrySeal for the Angiovac suction catheter. [...] nephrotoxic agents - DVT (deep venous thrombosis) ([facility]) - Elevated CA-125 11/30/2013 244 - Essential hypertension 10/08/2015 Stable on home medications Plan: -continue to monitor on home meds - 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 Bivalirudin to Warfarin bridging - HIT (heparin-induced thrombocytopenia) ([facility]) - Nontoxic multinodular goiter - Obese - [...] 0 COMPOUNDED PRESCRIPTION Outpatient physical therapyPlease call [phone] to make an appointment Disp: 1 Each [...] 20 mL 20 mL INTRAVENOUS PRN HYDROmorphone REIMBURSEMENT COUNSELOR 0.5 mg/mL in NaCl 0.9% 100 mL [...] of the left L3 lumbar artery. ?2.4 Guatemalan microcatheter system was then used to select [...] on Prednisone, Cyclophosphamide, and recently admitted to [facility] 10/13- requiring mechanical ventilation and PLEX), DVT/PE?needing extensive percutaneous thrombectomy of her IVC and lower extremity veins followed by placement of B/L?iliac venous?stents and an?endograft into her IVC, on long-term AC, HIT, CKD III, HTN, HFrEF, peripheral neuropathy, post phlebitic syndrome, who was transferred from [facility] for retroperitoneal bleeding on 10/23/17. She [...] 24, 2017 TIME: 5:57 AM PAGER/CONTACT #: [phone] Previous Version Sapna Wyatt MD 10/24/2017 12:36 PM Signed [facility] STAFF PHYSICIAN NOTE OF PERSONAL INVOLVEMENT IN [...] stents on AC, HIT, recent admission to [facility] (10/13 - 10/22) for acute hypoxic resp failure due to DAH requiring PLEX, who presented to OSH c/o left-sided abdominal pain, work-up c/w acute blood loss anemia from retroperitoneal bleeding, transferred to [facility] for further mgmt. ? PLAN: ? [...] hospitalization until then will need transfer to [facility] Main [place]. HTN - hold home meds for now. [...] minutes. SIGNATURE: Sapna Wyatt MD [facility] PAGER:[phone] DATE of SERVICE: 10/24/17 TIME of SERVICE: 12:36 PM Saundra Choe, RN, RN 10/24/2017 8:08 AM Addendum Nursing Progress Note Patient Name: Paloma Cannon Patient Location: [place] [address] [address] Daily Note: 1930 Report received Complete assessment to follow 1999 Complete assessment done. Pt is awake, alert, oriented x3 Dilaudid REIMBURSEMENT COUNSELOR controlling pt's pain at this time NSR to BST on cardiac surgeon. Speeh clear VSS Pt is on O2 at 6 L NC SAO2 mid to upper 90's Respiratory rate will decrease to 6 when the pt is sleeping. Minimal yellow urine noted. Moderate amount of serous drainage from the right groin Site from IR. Taking po fluids without difficulty. 2000 Blood cultures drawn by the loom operator apprentice as ordered 2029 CBC., BMP, Blood cultures and Thrombograph blood work drawn from the Samantha catheter and sent to lab as ordered. 2234 Ese Arias from labs called regarding the Thrombograph panel. Stated that this is a mail out to [facility] Main and lab would need to [...] 0410 CBCPhos and MAG drawn from the Saamntha catheter and sent to lab as ordered. 0430 One unit of PRBCs started at this time as ordered. 0515 KUB completed as ordered Drainage from the Rt groin puncture site sent to U/A and pH . 0600 500ml LR fluid bolus started at this time as ordered. 0730 Report given to relief RN . Updated on assessment and events of the shift supervisor melting. 0735 PRBC's completed at this time. No [...] MD 10/24/2017 10:19 AM Signed Dictation number: [id number] CAPRICE on CKD 3 CAPRICE likely from [...] bilateral iliac stents and IVC endograft, 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, plasmapharesis q2 weeks, prednisone 5 mg qD), Diffuse alveolar hemorrhage (on cyclophosphamide), HIT, HFpEF, HTN, CKD, peripheral neuropathy, post-phlebitic syndrome?who was admitted to [facility] MICU on 10/13?for alveolar hemorrhage. She [...] artery, -> embolized. 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 fistula [...] 20 mL 20 mL INTRAVENOUS PRN HYDROmorphone REIMBURSEMENT COUNSELOR 0.5 mg/mL in NaCl 0.9% 100 mL [...] (ml) 220 634 145 Net (ml) -220 3738 736 MNT Billing Type: Initial Assess/15 min 5 units SIGNATURE: Micaela Rice RD, LD PATIENT NAME: Paloma Cannon DATE: October 24, 2017 TIME: 12:28 PM PAGER: For further assistance and weekends please page the Group Pager [phone] Chaplain Nova 10/24/2017 3:14 PM Signed SPIRITUAL CARE PROGRESS NOTE SERVICE DATE: 10/24/2017 SERVICE TIME: 1500 Horse Buyer provided spiritual support through reflective listening and reinforcing ways pt uses to comfort and calm her self during anxiety attacks. Horse Buyer shared Psalm 23 and prayed with pt, who became tearful and expressed she had been comforted by the Psalm and the prayer. Pt expressed interest in using lavender for comfort and folder tier offered to bring some lavender scented inhalers, lotions, etc., to the pt which she readily accepted. Horse Buyer will bring this to pt later this afternoon and continue support. To contact the Spiritual Care Department: Please call [phone]. SIGNATURE: Chaplain Nova PATIENT NAME: Paloma Cannon DATE: October 24, 2017 TIME: 3:10 PM PAGER/CONTACT #: [phone] Dary Mueller, RN, RN 10/24/2017 7:47 PM Addendum Nursing Progress Note Patient Name: Paloma Cannon Patient [facility] [place] [address] Daily Note: 0730 report received,pt remains [...] ashley well.pt attempting to have a BM unsuccessful.CITY PLANT SUPERVISOR informed and orders placed. 1745 pt up in the ch from [facility]. 1800 pt remains up in the ch. in to see the pt update given.Vss.U/o remains minimal 1930 report to relief nurse. This note was completed by: Dary Mueller RN Previous Version Radha Brown APRN.CYTOTECHNOLOGIST SUPERVISOR 10/24/2017 7:50 PM Signed MICU PROGRESS NOTE WITH COORD CARE SERVICE DATE: 10/24/2017 SERVICE TIME: 929 Admission Date: 10/23/2017 Day #: 2 in the MICU. 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 [...] mesentery. She was transferred to MICU as [facility] had no beds. On arrival to [...] artery, -> embolized. 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 fistula [...] repet bmp 9PM Family requests transfer to [facility] . AC on hold in setting acute bleed Assessment/Plan retroperitoneal bleed /. HG 4.8, required 4 units PRBC underwent IR embolization of left lumbar artery serous output from right groin pouch placed HG continues to drift down (expected), required additional 2 units post procedure Neuro: Peripheral neuropathy left flank pain Plan: -add Gabapentin, reduced dose given renal failure -dilaudid REIMBURSEMENT COUNSELOR -0.2mg q 20 minutes no basal Cardiovascular: [...] bilateral iliac stents and IVC endograft, 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, plasmapharesis q2 weeks, prednisone 5 mg qD); aslo has Hx of HIT Dx 2013 by [facility]. discharged 10/22 on fondaparinux currently on hold Plan: Consulted hematology, appreciate recs --plasmapheresis q 2 weeks and prednisone 80 mg daily; a prednisone taper by 20 mg every four days (with maintenance of prednisone 5 mg daily) plasmapheresis due Monday Prophylactic: - PPI STONEMASON -CFV fistula, Vascular Surgery consulted -. fistula created in 2013 no need for intervention FULL CODE difficult airway seen and discussed with Dr Wyatt on AM and late afternoon rounds transfer orders in for transfer to [facility] Dr Womack contacting MICU staff to [...] 20 mL 20 mL INTRAVENOUS PRN HYDROmorphone REIMBURSEMENT COUNSELOR 0.5 mg/mL in NaCl 0.9% 100 mL INTRAVENOUS CONTINUOUS predniSONE (DELTASONE) tab(s) 80 mg 80 mg ORAL DAILY sulfamethoxazole-trimethoprim 800-160 mg 1 tablet (BACTRIM DS,SEPTRA DS) 1 tablet ORAL MO- hydrocortisone topical cream 1% TOPICAL BID PRN INFUSIONS HYDROmorphone REIMBURSEMENT COUNSELOR 0.5 mg/mL Lines, Drains, and Airways Line [...] Care Time 35 minutes. SIGNATURE: Radha Brown APRN.CYTOTECHNOLOGIST SUPERVISOR PATIENT NAME: Paloma Cannon DATE: October 24, 2017 TIME: 7:47 PM PAGER/CONTACT #: Angella Barreto, RN, RN 10/25/2017 8:08 AM Addendum Nursing Progress Note Patient Name: Paloma Cannon Patient [facility]: [place] [address] Daily Note: 1930- Bedside report received from off going RN and care of patient assumed. 1999- Initial assessment completed as documented. Patient up to bedside commode to void. Patient had an XL BM. Patient has Dilaudid REIMBURSEMENT COUNSELOR pump infusing via bolus at 0.2mg. 2020- [...] 20 mL 20 mL INTRAVENOUS PRN HYDROmorphone REIMBURSEMENT COUNSELOR 0.5 mg/mL in NaCl 0.9% 100 mL [...] Date 10/25/17 07 - 10/26/17 0659 Shift [id number] 7713-7997 [id number] 24 Hour Total I N T A [...] Sapna Wyatt MD 10/25/2017 6:30 PM Signed [facility] STAFF PHYSICIAN NOTE OF PERSONAL INVOLVEMENT IN [...] stents on AC, HIT, recent admission to [facility] (10/13 - 10/22) for acute hypoxic resp failure due to DAH requiring PLEX, who presented to OSH c/o left-sided abdominal pain, work-up c/w acute blood loss anemia from retroperitoneal bleeding, transferred to [facility] for further mgmt. ?? PLAN:? ?? [...] due to acute hemorrhage. Awaiting transfer to [facility] as she will need plasmapheresis. ? Patient/Family [...] minutes. SIGNATURE: Sapna Wyatt MD [facility] PAGER:[phone] DATE of SERVICE: 10/25/17 TIME of SERVICE: 9:13 AM ROBBI Dahl 10/25/2017 10:54 AM Signed CARE MANAGEMENT PROGRESS NOTE SERVICE DATE: 10/25/2017 SERVICE TIME: 10:52 AM LOS: 2 days Per huddle. Pt is being transferred to [facility]. Potentially before Monday. CM to follow and support. Pt home with spouse. Likely no skilled needs. SIGNATURE: ROBBI Dahl PATIENT NAME: Paloma Cannon DATE: October 25, 2017 TIME: 10:52 AM PAGER/CONTACT #: [phone] ALLYSON Rosas Tech 10/25/2017 12:50 PM Addendum [...] Care PATIENT NAME: Paloma Cannon PATIENT LOCATION: [place] [address] [address] READINESS TO LEARN COGNITIVE ABILITY: Alert and [...] Note Patient Name: Paloma Cannon Patient [facility] [place] [address] Daily Note:0800- Report and SBAR with offgoing RN, see flow sheet for details. CITY PLANT SUPERVISOR updated by offgoing nurse, will review labs etc 0830- Dr Crandall in for rounds, will order HD treatment, informed pt and discussed treatment 0900- Lab sent per order 0920- Electrical And Instrument Engineer in with MICU team for rounds, updated on status. Pt states pain in Left flank is at 40/10, orders placed for oral pain medication and will give clinician dose of dialudid 1000- Dialysis nurse arrived BS to set up for treatment 1220- Pt complaining of severe pain, rates 20/10, is undergoing HD treatment at this time. Notified Brandi CITY PLANT SUPERVISOR pt is continuously having severe pain, will discuss pain medication orders with cloud engagement partner 1320- HD treatment completed, PRBC's sent for, will administer solu-cortef and benedryl 1345- heavy assist OOB to recliner, pt weak but able to stand and pivot. 1425- PRBC's started, pt remains in recliner, states pain is somewhat better. Drinking liquid supplements. Received benedry and solu medrol prior to transfusion This note was completed by: Roxane Campbell RN Previous Version Navi Giang APRN.CYTOTECHNOLOGIST SUPERVISOR 10/25/2017 4:14 PM Addendum MICU PROGRESS NOTE [...] peripheral neuropathy, post-phlebitic syndrome?who was admitted to [facility] MICU on 10/13 for alveolar hemorrhage. She was discharged yesterday after she stabilized and reached her home around 6 PM. She started having severe left sided abdominal pain under her breast radiating down to thigh region and went back to [facility] ED. She had a CT abdomen at outside hospital. Showed extensive L. retroperitoneal Hemorrhage with mass effect to left kidney. Also less extensive hemorrhage present along the surface of the spleen and along mesentery. Transferred to MICU as [facility] had no beds. On arrival to [...] artery, -> embolized. 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 fistula [...] repet bmp 9PM Family requests transfer to [facility] . AC on hold in setting acute bleed 10/25: IV Lasix and Demedex diuretics did not improve u/o. Received 2 units PRBCs overnight with total of 7 units PRBCs since admission to . Is premedicated with diphenhydramine AND solu-cortef prior to each infusion of PRBCs.Nephrology consult to Dr Crandall who ordered HD through Apheresis port. Having problems with pain control. Has Dilaudid REIMBURSEMENT COUNSELOR. Added scheduled Percocet 1 q6h. Will continue [...] Gabapentin, reduced dose given renal failure -dilaudid REIMBURSEMENT COUNSELOR -0.2mg q 20 minutes no basal -percocet [...] daily) plasmapheresis due Monday will transfer to [facility] by Monday 10/30 Prophylactic: - PPI -a/c held, scd's STONEMASON -CFV fistula, Vascular Surgery consulted -. fistula created in 2013 no need for intervention FULL CODE difficult airway seen and discussed with Dr Wyatt On transfer to [facility] to [facility] Dr Womack contacting MICU staff to discuss transfer No [facility] bed avail. today 10/25. OBJECTIVE: VITAL [...] ORAL q 6 H HYDROmorphone 0.5 mg/mL REIMBURSEMENT COUNSELOR CLINICIAN DOSE 0.4 mg 0.4 mg INTRAVENOUS [...] 20 mL 20 mL INTRAVENOUS PRN HYDROmorphone REIMBURSEMENT COUNSELOR 0.5 mg/mL in NaCl 0.9% 100 mL INTRAVENOUS CONTINUOUS predniSONE (DELTASONE) tab(s) 80 mg 80 mg ORAL DAILY sulfamethoxazole-trimethoprim 800-160 mg 1 tablet (BACTRIM DS,SEPTRA DS) 1 tablet ORAL -WE hydrocortisone topical cream 1% TOPICAL BID PRN INFUSIONS HYDROmorphone REIMBURSEMENT COUNSELOR 0.5 mg/mL Lines, Drains, and Airways Line [...] 25, 2017 TIME: 3:47 PM PAGER/CONTACT #: [phone] Previous Version Kenisha Amaya RN, RN 10/25/2017 10:49 PM Addendum Nursing Progress Note Patient Name: Paloma Cannon Patient Location: -MICU36/-ICU-36 1915: Report received from day RN. 1999: Assessment complete pt is AANDO x3 and following commands, complaints of flank pain 03/19, encouraged use of REIMBURSEMENT COUNSELOR. Sinus rhythm on the monitor. SpO2 is 100% on 6L NC, will titrate down as able. For complete assessment see flow sheet. 2144: Pt received bed at [facility] [place], [facility] bed 6. Critical Care transport ETA is 1 hour. 2149: Report called to [facility] JEFF Anguiano. 5: Belongings verified with [...] PHARMACIST October 26, 2017 11:43 AM Pager: [phone] 10/26/2017 11:43 AM Medication List START taking [...] doctor about these medications HYDROmorphone 0.5 mg/mL REIMBURSEMENT COUNSELOR CLINICIAN DOSE 0.5 mg/mL Inject 0.8 mL intravenously one time only for 1 dose. Ask about: Should I take this medication? Where to Get Your Medications Information about where to get these medications is not yet available ! Ask your nurse or doctor about these medications - diphenhydrAMINE 50 mg capsule - gabapentin 100 mg capsule - HYDROmorphone 0.5 mg/mL REIMBURSEMENT COUNSELOR CLINICIAN DOSE 0.5 mg/mL CBC Collected: 10/23/2017 Status: F Source: [place] 8:30 PM CLINIC OTHER CAMPUS REPOSITORY TYPE [...] 0.12 Performed By: #### CBC, BMP #### [place] [address] BASIC METABOLIC PANL Collected: 10/23/2017 Status: F Source: [place] 8:30 PM CLINIC OTHER [place] REPOSITORY TYPE CODE TESTS RESULT OUT OF REFERENCE UNITS RANGE LAB GLU 65-100 mg/dL Glucose High 172 LAB BUN 8-25 mg/dL BUN High 66 LAB CRET 0.70-1.40 mg/dL High Creatinine 1.86 LAB NA 132-148 mmol/L Sodium 132 LAB K 3.7-5.1 mmol/L High Alert Potassium 6.2 Result Comment: Called to and read back by: George Choe [facility] 10/23/17 23:03 S.[place] LAB CL 98-110 mmol/L Low Chloride 90 LAB CO2 23-32 mmol/L CO2 26 LAB AGAP 9-18 mmol/L Anion Gap 16 LAB CA 8.5-10.5 mg/dL Low Calcium, Total 7.8 LAB GFRAA >60 Low eGFR- Amer. 39 LAB GFRNAA >60 . Low eGFR-All Other Races 32 Performed By: #### CBC, BMP #### [place] [address] Observed: 10/23/2017 Status: F Source: [place] BLOOD CULTURE 8:30 PM [facility] REPOSITORY Culture Result - No growth 5 days Performed By: #### BLCUL #### [facility] [address] [place], [place] [address] PROGRESS Observed: 10/23/2017 Status: COMPLETED Source: [place] 7:43 PM CLINIC OTHER CAMPUS REPOSITORY HNO ID: [id number] Author: Radha Brown Service: Critical Care Author [...] peripheral neuropathy, post-phlebitic syndrome?who was admitted to [facility] MICU on 10/13 for alveolar hemorrhage. [...] mesentery. She was transferred to MICU as [facility] had no beds. On arrival to [...] artery, -> embolized. 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 fistula created in 2013 no need for intervention will arrange for US eval for thrombus. Assessment/Plan Neuro: Peripheral neuropathy left flank pain Plan: -pt drowsy hold Gabapentin -dilaudid REIMBURSEMENT COUNSELOR Cardiovascular: HFpEF: LVEF ~ 50% BP low [...] 20 mL 20 mL INTRAVENOUS PRN HYDROmorphone REIMBURSEMENT COUNSELOR 0.5 mg/mL in NaCl 0.9% 100 mL [...] cream 1% TOPICAL BID PRN INFUSIONS HYDROmorphone REIMBURSEMENT COUNSELOR 0.5 mg/mL Lines, Drains, and Airways Line [...] 23, 2017 TIME: 7:43 PM PAGER/CONTACT #: [phone] Observed: 10/23/2017 Status: F Source: [place] BLOOD CULTURE 7:38 PM [facility] OTHER CAMPUS REPOSITORY Sp. Request/Comment: - The blood culture bottles are underfilled. Adding volume lower or higher than the 8 to 10 mL per bottle, which is the manufacturers recommended volume, may adversely affect the re covery and/or detection of organisms. 5.9 CC Culture Result - No growth 5 days Performed By: #### BLCUL #### [facility] [address], [place] [address] Observed: 10/23/2017 Status: F Source: [place] URINE CULTURE 6:50 PM [facility] REPOSITORY Sp. Request/Comment: - Specimen received in preservative Culture Result - <10,000 CFU/ml Gram negative bacilli --> ABNORMAL ALERT Insignificant colony count. No further workup. --> ABNORMAL ALERT Performed By: #### URCUL #### [place] [address] [place] [id number] CBC Collected: 10/23/2017 Status: F Source: [place] 5:30 PM [facility] REPOSITORY TYPE CODE TESTS RESULT [...] nRBC 0.06 Performed By: #### CBC #### [place] [phone] #### PLATF4 #### [place] [id number] ANTI PLT FACTOR 4 Collected: 10/23/2017 Status: F Source: [place] AB 5:30 PM [facility] REPOSITORY TYPE CODE TESTS RESULT [...] Review Indicated Performed By: #### CBC #### [facility] [address] [place] [id number] #### PLATF4 #### [facility] [address] [place], [place] [address] NURSING PROG Observed: 10/23/2017 Status: COMPLETED Source: [place] 4:16 PM [facility] OTHER CAMPUS REPOSITORY HNO ID: [id number] Author: Lynne (Rn) JEFF Sprague Service: Nursing Author Type: Registered Nurse Type: Nursing Progress Note Filed: 10/23/2017 7:45 PM Note Text: Nursing Progress Note Patient Name: Paloma Cannon Patient Location: [place] [address] Daily Note: 07 Shift report received from off-going RN. 07 Gemma Maradiaga, lab personnel notified this RN of HgB=10/15. 0729 Text paged Deepa WATERS of most recent HgB as noted above. 0742 Tanika NEWMAN to contact blood bank. 0744 Per Blood bank, will take 2-4 hours until PRBCs available r/t antibodies. Notified Deepa WATERS AND Dr. Welch (Fellow from [facility]). ELLIOTT calls blood bank after discussion [...] In process. 0810 Clarified pre-medication orders w/ CYTOTECHNOLOGIST SUPERVISOR, Deepa as order is for 50 AND 50. Will order another 50mg dose of solu-medrol. Has been given 100mg w/ verbal order from CYTOTECHNOLOGIST SUPERVISOR. Continue to monitor. 0812 Discussed LSO w/ pt who states she is difficult to intubate but is agreeable if necessary. Concern re meds given @ 0330/0615/0807 - see SEP. Min RR noted 6. Continue to monitor. 0818 1st unit of PRBCs to bedside. Verified, vitals taken per protocol. Transfusion in progress. Dr. Wyatt to bedside to assess. 0820 Pt signed consent for transfusion (had previously given verbal consent). Emergent blood bank form completed by Dr. Wyatt. CYTOTECHNOLOGIST SUPERVISOR also at bedside. POC includes IR this AM. 08 Have spoken w/ Kevin Torres, Pharmacist re dilaudid REIMBURSEMENT COUNSELOR. Pending arrival of infusion to MICU. 0835 Per CYTOTECHNOLOGIST SUPERVISOR, ok for ice chips. W/o s/s of aspiration. Refuses oral care/brushing of teeth at this time. 0845 Have requested CELLULAR TOWER CLIMBER to request 2nd unit of PRBCs. Procedure for each unit is to run @ 125-150ml/h x15 min then if no obvious reaction, 999ml/h. Tolerating 1st 15 min and 999ml/h rate thereafter. Pending arrival of unit #2. 0850 Bag of Dialudid Delivered to bedside. Have discussed w/ CELLULAR TOWER CLIMBER POC which includes use of Dilaudid IVP until post IR procedure. 0856 Have spoken w/ CYTOTECHNOLOGIST SUPERVISOR of need for additional IV access as pt has single lumen Franchesca catheter (as well as apheresis cath). Discussed possible placement in IR. Per CYTOTECHNOLOGIST SUPERVISOR, after consulting w/ Dr. Wyatt, no additional central line placement to be placed - iff need be, will use apheresis catheter. Notified CYTOTECHNOLOGIST SUPERVISOR of RR min noted bbm - encouraged pt to beathe- concern for additional 0.5mg dilaudid order as pt somnolent after 1mg dilaudid and 50mg bendadryl. Continue to monitor. Hold 0.5mg for now and reassess post procedure. 0905 Per CYTOTECHNOLOGIST SUPERVISOR, POC includes RN to attempt PIV - no central line to be placed in IR 0907 Have provided brief report to Bianca in IR including Dilaudid/Fentanyl/Benadryl/Solu-Medrol and PRBC transfusions for HgB 4.8. POC includes transport personnel on the way. 911 Have updated another IR personnel to same info as that provided to Bianca as noted above. 09 POC includes CBC upon return to MICU post IR procedure. 2nd unit of PRBC in progress. As well, will reassess need for REIMBURSEMENT COUNSELOR v. IVP of dilaudid post procedure. 09 [...] PRBCs should also be given emergently. 0956 [facility] notifies RN of need for emergent transfusion as noted above - [facility] to notify Blood [facility]. 1028 3rd unit of PRBCs up at this time. Verified and vitals per protocol. Have called senior software managerEllen PATEL to inquire if imaging disc from [facility] present in pt's chart or belongings per request of Dr. Gr. 1039 No disc available but CT results/report brought to [employer] by senior software manager for Dr. Gr's review. 1100 Notified [facility] to request 4th unit of PRBCs. IR procedure continues in progress. 1123 Have spoken w/ Kevin Torres Pharmacist re indwelling citrate per pt. Reviewed pt's allergy to Heprain (RONNIE) - Pharmacist to discuss w/ colleagues and f/up w/ RN. 1134 Kevin Torres notifies this RN of availability of Na Citrate 3ml syringes used for indewlling catheters. Order #[id number]. Will have CYTOTECHNOLOGIST SUPERVISOR order so that upon arrival in MICU, can indwell apheresis cath ports. 1145 Have notified deepa WATERS of order # and amount required (total 3.2ml) of Na Citrate as noted above. As well, updated to IR procedure as known by this RN. Per Dr. Gr, pt may be required for transfer to [facility] for complex vascular surgery as Dr. [...] W/ Kevin Torres re Na Citrate post independent living advisor, Katharine (pt has dialysis cath) and pt's allergy to heparim. 1242 and Father at bedside.Updated to pt's condition and answered questions as able. In particular, 4 units of PRBCs given, Coils placed in IR, to receive dilaudid REIMBURSEMENT COUNSELOR. Per pt, man-made fistulas in groin for increased blood flow to LEs. Pe rHusband, pt is to have next apheresis 10/30 and pt's PLTs are kept @ < 100. Will notify Dr. Wyatt as will need to coordinate transfer to [facility] for such. 1255 Dr. Morillo updated to pt's condition and in particular, pt has been to IR w/ coils, received 4 units for HgB 4.8 and due for apheresis 10/30. 1305 0.5mg dilaudid to be given for continued c/o pain. Will begin REIMBURSEMENT COUNSELOR Dialudid pump fernando. Dr. Morillo parted bedside. Awaiting arrival of REIMBURSEMENT COUNSELOR pump to bedside. 1307 Blood sample drawn from Franchesca Cath, labeled, verified and sent to lab via tube system (CBC). 1313 1.6ml Na Citrate placed in each apheresis port. Pt on 3L NC. Continue to monitor. [id number] R groin noted to be bleeding - moderate amt. Using ABD, pressure applied to R groin for all of this time. Bleeding stopped. Continue to monitor. 1410 R groin assessed - no further bleeding. W/o evidence of hematoma. Will continue to monitor. 1415 Reports some relief w/ REIMBURSEMENT COUNSELOR, however, SpO2 low 90s thus increased FiO2 to 4L/min. 1428 CYTOTECHNOLOGIST SUPERVISOR notified of most recent HANDH 02/08/24.2 and pt request for diet. Tolerating sips and chips. Deepa WATERS to order reg diet. 1338 REIMBURSEMENT COUNSELOR Dilaudid began at this time. Instructed in use of demand button and dose and frequency. 1608 Dr. Wyatt at bedside. Thereafter, updated to pt's condition and answered questions. In particular, most recent HANDH and pt's every 4 hour CBC, and effectiveness of dilaudid REIMBURSEMENT COUNSELOR per pt report. 1616 Text paged Deepa WATERS @ [phone]: Bed 36: Reports itching, especially on chest AND back. Requesting benedryl. Please advise. Thanks. Lynne [phone] SR from Vascualr surgery at bedside. 1734 [facility] labeled and sent to lab via tube system. 1745 Pharmcy notified of need for prn hydrocortisone topical cream 1%. 1805 Vascular surgery resident notified this RN of POC to include b/l LE Duplex. 1814 C/o sweating. Temp 36.3. 3 ice packs placed: b/l axialla and posterior neck. 1821 REIMBURSEMENT COUNSELOR pump use as follows: 15ml total, Total given 7.5mg, 10/20 demand bolus' AND pt bolus 1.2mg. 1824 Text paged Deepa WATERS R: Bed 36: Low UOP. Past 2 hours were 10 AND 15ml. Please advise. Thanks. 1835 Text paged Deepa WATERS R: Bed 36: We just sent the CBC @ 1730. Do you want lab to stick and then a draw from the [facility]? Please advise. Thanks. 1836 Text paged CYTOTECHNOLOGIST SUPERVISOR: Bed 36: For blood cultures. 1841 Deepa WATERS responded to above text: POC now includes: next CBC AND BMP @ 1999, 1 set of blood cxs to be drawn by lab and [facility] as notified pt had small emesis post ingestion of items from dinner tray. Blood cx from line to also be drawn @ 1999 to conserve waste blood. 185 Urine sample obtained from port for cx, labeled verified and sent to lab via tube system. 192 Shift report given to on-coming RN. 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 On Fondaparinux 7.5mg and on Prednisone 80mg prior to discharge. She was to taper prednisone on discharge. She underwent Plasma exchange 10/16 and 10/18 and is scheduled again 10/30. After her journey home yesterday she developed severe left flank pain and her brought her to [facility]. 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 The DAH is a feature of her APS and she will continue plasmapheresis q 2 weeks and prednisone 80 mg daily; a prednisone taper by 20 mg every four days (with maintenance of prednisone 5 mg daily) is recommended. I discussed the case with her public health outreach worker at [facility], Dr. Andujar. Bharat Morillo M.D. CASE MGT INIT Observed: 10/23/2017 Status: COMPLETED Source: [facility] 3:01 PM CLINIC OTHER CAMPUS REPOSITORY HNO ID: [id number] Author: Tarah Johnson (Sw) Service: Care Management Author Type: Steel Finisher Type: Care Mgt Initial Assessment Filed: 10/23/2017 3:33 PM Note Text: CARE MANAGEMENT: ASSESSMENT AND DISCHARGE PLAN SERVICE DATE: 10/23/2017 SERVICE TIME: 3:01 PM PRIMARY CARE PHYSICIAN: PEYTON ROGERS MD ADMISSION STATUS: Inpatient Needs Prior to Discharge: To Be Determined MEDICAL: Patient/Shiftman Stated Goals: To have reduction in symptoms To improve my functional status To return home to life as it was Health Insurance: [facility] Medicare and Medicaid Health Issues Impacting [...] [place] Has the Patient Been in a Retirement Facility in the Past 30 days? No [...] 0 I feel financially burdened by my aas-wn-ooinjg expenses for my prescription medication: Disagree completely [...] Unit. She was just discharged home from [facility] yesterday. The patient lives with her and was independent prior to admission. She has home oxygen provided through [facility]. No skilled needs are anticipated but SW remains available if any needs are identified. SIGNATURE: ROBBI Rollins PATIENT NAME: Paloma Cannon DATE: October 23, 2017 TIME: 3:01 PM PAGER/CONTACT #: [phone] PLAN OF CARE Observed: 10/23/2017 Status: COMPLETED Source: [place] 2:20 PM [facility] REPOSITORY HNO ID: [id number] Author: Vlad Soto (Pharmacist) Service: Pharmacy Author Type: Pharmacist Type: Plan of Care Filed: 10/23/2017 2:22 PM Note Text: MEDICATION HISTORY AND MEDICATION RECONCILIATION Patient Name:Karyna Cannon : 1990 Source of history:[facility] records: discharge note on 10/22/17 Medication Nonadherence Identified: No barriers noted The above information represents the best possible medication history: Yes Reconciliation completed? 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 COMPOUNDED PRESCRIPTION Outpatient physical therapy Please call [phone] to make an appointment fondaparinux (ARIXTRA) 2.5 [...] PM CBC Collected: 10/23/2017 Status: F Source: [place] 12:57 PM CLINIC OTHER CAMPUS REPOSITORY TYPE [...] MPV 10.4 Performed By: #### CBC #### [place] [address] NURSING PROG Observed: 10/23/2017 Status: COMPLETED Source: [place] 12:35 PM [facility] REPOSITORY HNO ID: [id number] Author: Mary Burton (Rn) JEFF Marin Service: [...] 23, 2017 TIME: 12:35 PM PAGER/CONTACT #: [phone] IR ANGIOGRAPHY SPINAL Observed: 10/23/2017 Status: F Source: [facility] 12:00 PM [facility] REPOSITORY * * *Final Report* [...] Kerma: 4295.0 mGy Dose Area Product (DAP): 485790.0 mGy*cm2 Fluoro Time: 20:00 min:sec Radiation dose [...] guidance. Access was exchanged for a 5 Guatemalan sheath. 5 Guatemalan pigtail catheter was placed in the cephalad abdominal aorta, aortogram was performed. Next, combination 5 Guatemalan Omni Flush catheter straight Bentson wire was used to traverse the aortic bifurcation. Access was exchanged for a 6 Guatemalan Bental sheath. Left common iliac, external iliac, and left common femoral artery angiograms were performed. Access was then exchanged for a 5 Guatemalan C2 Cobra catheter over a Bentson wire. [...] of the left L3 lumbar artery. 2.4 Guatemalan microcatheter system was then used to select [...] Specimens: 0: ATTENDING RADIOLOGIST: Maximino Gr M.D. CROWN ATTACHER: None The procedure was performed by the: attending radiologist, without an pediatric physical therapy assistant. The attending radiologist performed the following procedural activities: Entire procedure. IMPRESSION: MULTIPLE FOCI OF ACTIVE EXTRAVASATION FROM BRANCHES OF THE LEFT L3 LUMBAR ARTERY. SUCCESSFUL GELFOAM/COIL EMBOLIZATION OF THE MIDPORTION OF THIS ARTERY. INCIDENTALLY DISCOVERED DISTAL LEFT COMMON FEMORAL ARTERY TO COMMON FEMORAL VEIN ARTERIOVENOUS FISTULA. GIVEN ITS LOCATION ACROSS THE JOINT, NOT AMENABLE TO ENDOVASCULAR STENTING. RECOMMEND SURGICAL EVALUATION. Glass Edger: PSCB Transcribe Date/Time: Oct 23 2017 2:19P Dictated by : SUNSHINE GR MD This examination was interpreted and the report reviewed and electronically signed by: SUNSHINE GR MD on Oct 23 2017 2:35PM EST IR ANGIOGRAPHY SPINAL Observed: 10/23/2017 Status: F Source: [place] [employer] 12:00 PM CLINIC OTHER CAMPUS REPOSITORY * [...] Kerma: 4295.0 mGy Dose Area Product (DAP): 858163.0 mGy*cm2 Fluoro Time: 20:00 min:sec Radiation dose [...] guidance. Access was exchanged for a 5 Guatemalan sheath. 5 Guatemalan pigtail catheter was placed in the cephalad abdominal aorta, aortogram was performed. Next, combination 5 Guatemalan Omni Flush catheter straight Bentson wire was used to traverse the aortic bifurcation. Access was exchanged for a 6 Guatemalan Bental sheath. Left common iliac, external iliac, and left common femoral artery angiograms were performed. Access was then exchanged for a 5 Guatemalan C2 Cobra catheter over a Bentson wire. [...] of the left L3 lumbar artery. 2.4 Guatemalan microcatheter system was then used to select [...] Specimens: 0: ATTENDING RADIOLOGIST: Maximino Gr M.D. CROWN ATTACHER: None The procedure was performed by the: attending radiologist, without an pediatric physical therapy assistant. The attending radiologist performed the following procedural activities: Entire procedure. IMPRESSION: MULTIPLE FOCI OF ACTIVE EXTRAVASATION FROM BRANCHES OF THE LEFT L3 LUMBAR ARTERY. SUCCESSFUL GELFOAM/COIL EMBOLIZATION OF THE MIDPORTION OF THIS ARTERY. INCIDENTALLY DISCOVERED DISTAL LEFT COMMON FEMORAL ARTERY TO COMMON FEMORAL VEIN ARTERIOVENOUS FISTULA. GIVEN ITS LOCATION ACROSS THE JOINT, NOT AMENABLE TO ENDOVASCULAR STENTING. RECOMMEND SURGICAL EVALUATION. Glass Edger: MURTAZA Transcribe Date/Time: Oct 23 2017 2:19P Dictated by : SUNSHINE GR MD This examination was interpreted and the report reviewed and electronically signed by: SUNSHINE GR MD on Oct 23 2017 2:35PM EST IR ANGIOGRAPHY SPINAL Observed: 10/23/2017 Status: F Source: [facility] 12:00 PM CLINIC OTHER CAMPUS REPOSITORY [...] Kerma: 4295.0 mGy Dose Area Product (DAP): 468033.0 mGy*cm2 Fluoro Time: 20:00 min:sec Radiation dose [...] guidance. Access was exchanged for a 5 Guatemalan sheath. 5 Guatemalan pigtail catheter was placed in the cephalad abdominal aorta, aortogram was performed. Next, combination 5 Guatemalan Omni Flush catheter straight Bentson wire was used to traverse the aortic bifurcation. Access was exchanged for a 6 Guatemalan Bental sheath. Left common iliac, external iliac, and left common femoral artery angiograms were performed. Access was then exchanged for a 5 Guatemalan C2 Cobra catheter over a Bentson wire. [...] of the left L3 lumbar artery. 2.4 Guatemalan microcatheter system was then used to select [...] Specimens: 0: ATTENDING RADIOLOGIST: Maximino Gr M.D. CROWN ATTACHER: None The procedure was performed by the: attending radiologist, without an pediatric physical therapy assistant. The attending radiologist performed the following procedural activities: Entire procedure. IMPRESSION: MULTIPLE FOCI OF ACTIVE EXTRAVASATION FROM BRANCHES OF THE LEFT L3 LUMBAR ARTERY. SUCCESSFUL GELFOAM/COIL EMBOLIZATION OF THE MIDPORTION OF THIS ARTERY. INCIDENTALLY DISCOVERED DISTAL LEFT COMMON FEMORAL ARTERY TO COMMON FEMORAL VEIN ARTERIOVENOUS FISTULA. GIVEN ITS LOCATION ACROSS THE JOINT, NOT AMENABLE TO ENDOVASCULAR STENTING. RECOMMEND SURGICAL EVALUATION. Glass Edger: MURTAZA Transcribe Date/Time: Oct 23 2017 2:19P Dictated by : SUNSHINE GR MD This examination was interpreted and the report reviewed and electronically signed by: SUNSHINE GR MD on Oct 23 2017 2:35PM EST IR ANGIOGRAPHY SPINAL Observed: 10/23/2017 Status: F Source: [facility] 12:00 PM CLINIC OTHER CAMPUS REPOSITORY [...] Kerma: 4295.0 mGy Dose Area Product (DAP): 590721.0 mGy*cm2 Fluoro Time: 20:00 min:sec Radiation dose [...] guidance. Access was exchanged for a 5 Guatemalan sheath. 5 Guatemalan pigtail catheter was placed in the cephalad abdominal aorta, aortogram was performed. Next, combination 5 Guatemalan Omni Flush catheter straight Bentson wire was used to traverse the aortic bifurcation. Access was exchanged for a 6 Guatemalan Bental sheath. Left common iliac, external iliac, and left common femoral artery angiograms were performed. Access was then exchanged for a 5 Guatemalan C2 Cobra catheter over a Bentson wire. [...] of the left L3 lumbar artery. 2.4 Guatemalan microcatheter system was then used to select [...] Specimens: 0: ATTENDING RADIOLOGIST: Maximino Gr M.D. CROWN ATTACHER: None The procedure was performed by the: attending radiologist, without an pediatric physical therapy assistant. The attending radiologist performed the following procedural activities: Entire procedure. IMPRESSION: MULTIPLE FOCI OF ACTIVE EXTRAVASATION FROM BRANCHES OF THE LEFT L3 LUMBAR ARTERY. SUCCESSFUL GELFOAM/COIL EMBOLIZATION OF THE MIDPORTION OF THIS ARTERY. INCIDENTALLY DISCOVERED DISTAL LEFT COMMON FEMORAL ARTERY TO COMMON FEMORAL VEIN ARTERIOVENOUS FISTULA. GIVEN ITS LOCATION ACROSS THE JOINT, NOT AMENABLE TO ENDOVASCULAR STENTING. RECOMMEND SURGICAL EVALUATION. Glass Edger: [facility] Transcribe Date/Time: Oct 23 2017 2:19P Dictated by : SUNSHINE GR MD This examination was interpreted and the report reviewed and electronically signed by: SUNSHINE GR MD on Oct 23 2017 2:35PM EST IR ILIAC ANGIO Observed: 10/23/2017 Status: F Source: [place] 12:00 PM [facility] OTHER CAMPUS REPOSITORY * * *Final [...] Kerma: 4295.0 mGy Dose Area Product (DAP): 746891.0 mGy*cm2 Fluoro Time: 20:00 min:sec Radiation dose [...] guidance. Access was exchanged for a 5 Guatemalan sheath. 5 Guatemalan pigtail catheter was placed in the cephalad abdominal aorta, aortogram was performed. Next, combination 5 Guatemalan Omni Flush catheter straight Bentson wire was used to traverse the aortic bifurcation. Access was exchanged for a 6 Guatemalan Bental sheath. Left common iliac, external iliac, and left common femoral artery angiograms were performed. Access was then exchanged for a 5 Guatemalan C2 Cobra catheter over a Bentson wire. [...] of the left L3 lumbar artery. 2.4 Guatemalan microcatheter system was then used to select [...] Specimens: 0: ATTENDING RADIOLOGIST: Maximino Gr M.D. CROWN ATTACHER: None The procedure was performed by the: attending radiologist, without an pediatric physical therapy assistant. The attending radiologist performed the following procedural activities: Entire procedure. IMPRESSION: MULTIPLE FOCI OF ACTIVE EXTRAVASATION FROM BRANCHES OF THE LEFT L3 LUMBAR ARTERY. SUCCESSFUL GELFOAM/COIL EMBOLIZATION OF THE MIDPORTION OF THIS ARTERY. INCIDENTALLY DISCOVERED DISTAL LEFT COMMON FEMORAL ARTERY TO COMMON FEMORAL VEIN ARTERIOVENOUS FISTULA. GIVEN ITS LOCATION ACROSS THE JOINT, NOT AMENABLE TO ENDOVASCULAR STENTING. RECOMMEND SURGICAL EVALUATION. Glass Edger: MURTAZA Transcribe Date/Time: Oct 23 2017 2:19P Dictated by : SUNSHINE GR MD This examination was interpreted and the report reviewed and electronically signed by: SUNSHINE GR MD on Oct 23 2017 2:35PM EST IR EXIST CATH ANGIO Observed: 10/23/2017 Status: F Source: [place] [facility] 12:00 PM CLINIC OTHER CAMPUS REPOSITORY [...] Kerma: 4295.0 mGy Dose Area Product (DAP): 167138.0 mGy*cm2 Fluoro Time: 20:00 min:sec Radiation dose [...] guidance. Access was exchanged for a 5 Guatemalan sheath. 5 Guatemalan pigtail catheter was placed in the cephalad abdominal aorta, aortogram was performed. Next, combination 5 Guatemalan Omni Flush catheter straight Bentson wire was used to traverse the aortic bifurcation. Access was exchanged for a 6 Guatemalan Bental sheath. Left common iliac, external iliac, and left common femoral artery angiograms were performed. Access was then exchanged for a 5 Guatemalan C2 Cobra catheter over a Bentson wire. [...] of the left L3 lumbar artery. 2.4 Guatemalan microcatheter system was then used to select [...] Specimens: 0: ATTENDING RADIOLOGIST: Maximino Gr M.D. CROWN ATTACHER: None The procedure was performed by the: attending radiologist, without an pediatric physical therapy assistant. The attending radiologist performed the following procedural activities: Entire procedure. IMPRESSION: MULTIPLE FOCI OF ACTIVE EXTRAVASATION FROM BRANCHES OF THE LEFT L3 LUMBAR ARTERY. SUCCESSFUL GELFOAM/COIL EMBOLIZATION OF THE MIDPORTION OF THIS ARTERY. INCIDENTALLY DISCOVERED DISTAL LEFT COMMON FEMORAL ARTERY TO COMMON FEMORAL VEIN ARTERIOVENOUS FISTULA. GIVEN ITS LOCATION ACROSS THE JOINT, NOT AMENABLE TO ENDOVASCULAR STENTING. RECOMMEND SURGICAL EVALUATION. Glass Edger: MURTAZA Transcribe Date/Time: Oct 23 2017 2:19P Dictated by : SUNSHINE GR MD This examination was interpreted and the report reviewed and electronically signed by: SUNSHINE GR MD on Oct 23 2017 2:35PM EST IR RENAL ANGIO UNI Observed: 10/23/2017 Status: F Source: [place] 12:00 PM CLINIC OTHER CAMPUS REPOSITORY * * *Final Report* * * DATE OF EXAM: Oct 23 2017 12:00PM FRANCIS [id number] - IR RENAL ANGIO UNI / [...] Kerma: 4295.0 mGy Dose Area Product (DAP): 320011.0 mGy*cm2 Fluoro Time: 20:00 min:sec Radiation dose [...] guidance. Access was exchanged for a 5 Guatemalan sheath. 5 Guatemalan pigtail catheter was placed in the cephalad abdominal aorta, aortogram was performed. Next, combination 5 Guatemalan Omni Flush catheter straight Bentson wire was used to traverse the aortic bifurcation. Access was exchanged for a 6 Guatemalan Bental sheath. Left common iliac, external iliac, and left common femoral artery angiograms were performed. Access was then exchanged for a 5 Guatemalan C2 Cobra catheter over a Bentson wire. [...] of the left L3 lumbar artery. 2.4 Guatemalan microcatheter system was then used to select [...] Specimens: 0: ATTENDING RADIOLOGIST: Maximino Gr M.D. CROWN ATTACHER: None The procedure was performed by the: attending radiologist, without an pediatric physical therapy assistant. The attending radiologist performed the following procedural activities: Entire procedure. IMPRESSION: MULTIPLE FOCI OF ACTIVE EXTRAVASATION FROM BRANCHES OF THE LEFT L3 LUMBAR ARTERY. SUCCESSFUL GELFOAM/COIL EMBOLIZATION OF THE MIDPORTION OF THIS ARTERY. INCIDENTALLY DISCOVERED DISTAL LEFT COMMON FEMORAL ARTERY TO COMMON FEMORAL VEIN ARTERIOVENOUS FISTULA. GIVEN ITS LOCATION ACROSS THE JOINT, NOT AMENABLE TO ENDOVASCULAR STENTING. RECOMMEND SURGICAL EVALUATION. Glass Edger: [facility] MED[facility] CENTERGaudencio Transcribe Date/Time: Oct 23 2017 2:19P Dictated by : SUNSHINE GR MD This examination was interpreted and the report reviewed and electronically signed by: SUNSHINE GR MD on Oct 23 2017 2:35PM EST IR ABDOMINAL AORTOGRAM Observed: 10/23/2017 Status: F Source: [place] 12:00 PM CLINIC OTHER CAMPUS REPOSITORY * * *Final Report* * * DATE OF EXAM: Oct 23 2017 12:00PM A 0712 - IR ABDOMINAL AORTOGRAM / PROCEDURE [...] Kerma: 4295.0 mGy Dose Area Product (DAP): 675572.0 mGy*cm2 Fluoro Time: 20:00 min:sec Radiation dose [...] guidance. Access was exchanged for a 5 Guatemalan sheath. 5 Guatemalan pigtail catheter was placed in the cephalad abdominal aorta, aortogram was performed. Next, combination 5 Guatemalan Omni Flush catheter straight Bentson wire was used to traverse the aortic bifurcation. Access was exchanged for a 6 Guatemalan Bental sheath. Left common iliac, external iliac, and left common femoral artery angiograms were performed. Access was then exchanged for a 5 Guatemalan C2 Cobra catheter over a Bentson wire. [...] of the left L3 lumbar artery. 2.4 Guatemalan microcatheter system was then used to select [...] Specimens: 0: ATTENDING RADIOLOGIST: Maximino Gr M.D. CROWN ATTACHER: None The procedure was performed by the: attending radiologist, without an pediatric physical therapy assistant. The attending radiologist performed the following procedural activities: Entire procedure. IMPRESSION: MULTIPLE FOCI OF ACTIVE EXTRAVASATION FROM BRANCHES OF THE LEFT L3 LUMBAR ARTERY. SUCCESSFUL GELFOAM/COIL EMBOLIZATION OF THE MIDPORTION OF THIS ARTERY. INCIDENTALLY DISCOVERED DISTAL LEFT COMMON FEMORAL ARTERY TO COMMON FEMORAL VEIN ARTERIOVENOUS FISTULA. GIVEN ITS LOCATION ACROSS THE JOINT, NOT AMENABLE TO ENDOVASCULAR STENTING. RECOMMEND SURGICAL EVALUATION. Glass Edger: PSCB Transcribe Date/Time: Oct 23 2017 2:19P Dictated by : SUNSHINE GR MD This examination was interpreted and the report reviewed and electronically signed by: SUNSHINE GR MD on Oct 23 2017 2:35PM EST IR EMBO HEMORRHAGE/EXTRAVAS Observed: 10/23/2017 Status: F Source: [place] 12:00 PM CLINIC OTHER CAMPUS REPOSITORY * [...] Kerma: 4295.0 mGy Dose Area Product (DAP): 068197.0 mGy*cm2 Fluoro Time: 20:00 min:sec Radiation dose [...] guidance. Access was exchanged for a 5 Guatemalan sheath. 5 Guatemalan pigtail catheter was placed in the cephalad abdominal aorta, aortogram was performed. Next, combination 5 Guatemalan Omni Flush catheter straight Bentson wire was used to traverse the aortic bifurcation. Access was exchanged for a 6 Guatemalan Bental sheath. Left common iliac, external iliac, and left common femoral artery angiograms were performed. Access was then exchanged for a 5 Guatemalan C2 Cobra catheter over a Bentson wire. [...] of the left L3 lumbar artery. 2.4 Guatemalan microcatheter system was then used to select [...] Specimens: 0: ATTENDING RADIOLOGIST: Maximino Gr M.D. CROWN ATTACHER: None The procedure was performed by the: attending radiologist, without an pediatric physical therapy assistant. The attending radiologist performed the following procedural activities: Entire procedure. IMPRESSION: MULTIPLE FOCI OF ACTIVE EXTRAVASATION FROM BRANCHES OF THE LEFT L3 LUMBAR ARTERY. SUCCESSFUL GELFOAM/COIL EMBOLIZATION OF THE MIDPORTION OF THIS ARTERY. INCIDENTALLY DISCOVERED DISTAL LEFT COMMON FEMORAL ARTERY TO COMMON FEMORAL VEIN ARTERIOVENOUS FISTULA. GIVEN ITS LOCATION ACROSS THE JOINT, NOT AMENABLE TO ENDOVASCULAR STENTING. RECOMMEND SURGICAL EVALUATION. Glass Edger: PSCGaudencio Transcribe Date/Time: Oct 23 2017 2:19P Dictated by : SUNSHINE GR MD This examination was interpreted and the report reviewed and electronically signed by: SUNSHINE GR MD on Oct 23 2017 2:35PM EST BRIEF OP NOT Observed: 10/23/2017 Status: COMPLETED Source: [place] 11:57 AM [facility] REPOSITORY HNO ID: [id number] Author: Sunshine Gr Service: Radiology Author Type: Physician Type: Brief Op Note Filed: 10/23/2017 12:01 PM Note Text: BRIEF OPERATIVE / PROCEDURE NOTE SURGERY/PROCEDURE DATE: 10/23/17 INCISION/PROCEDURE START TIME: INCISION CLOSE/PROCEDURE END TIME: SURGEON(S)/PROCEDURALIST(S) AND CROWN ATTACHER(S): Maximino Gr - Primary SURGERY/PROCEDURE(S): L RP angiogram and L3 embolization ANESTHESIA: Moderate sedation FINDINGS: Bleeding from multiple foci of from left L3, embolized with gelfoam and coils. Large STONEMASON->CFV fistula ESTIMATED BLOOD LOSS: Minimal SPECIMENS: None COMPLICATIONS: None PRE-OP/PRE-PROCEDURE DIAGNOSIS: Left RP bleed POST-OP/POST-PROCEDURE DIAGNOSIS: Left L3 hemorrhage, L STONEMASON-CFV AVF SIGNATURE: Sunshine Gr MD PATIENT NAME: Paloma Cannon DATE: October 23, 2017 TIME: 11:57 AM PAGER/CONTACT #: PROGRESS Observed: 10/23/2017 Status: COMPLETED Source: [place] 7:48 AM [facility] REPOSITORY HNO ID: [id number] Author: Sapna Wyatt Service: Critical Care Author Type: Physician Type: Progress Notes Filed: 10/23/2017 2:43 PM Note Text: [facility] STAFF PHYSICIAN NOTE OF PERSONAL INVOLVEMENT IN [...] stents on AC, HIT, recent admission to [facility] (10/13 - 10/22) for acute hypoxic resp failure due to DAH requiring PLEX, who presented to OSH c/o left-sided abdominal pain, work-up c/w acute blood loss anemia from retroperitoneal bleeding, transferred to [facility] for further mgmt. PLAN: Acute hypoxic [...] minutes. SIGNATURE: Sapna Wyatt MD [facility] PAGER:[phone] DATE of SERVICE: 10/23/17 TIME of SERVICE: 9:01 AM NURSING PROG Observed: 10/23/2017 Status: COMPLETED Source: [place] 7:29 AM [facility] REPOSITORY HNO ID: [id number] Author: Lynne (Rn) JEFF Sprague Service: Nursing Author Type: Registered Nurse Type: Nursing Progress Note Filed: 10/23/2017 7:29 AM Note Text: Nursing Progress Note Patient Name: Paloma Cannon Patient [facility]: [place] [address] Daily Note: 0729 Text paged Deepa WATERS R: Bed 36: Hgb=4.8. Thanks. Please advise. Lynne This note was completed by: Lynne Sprague RN HISTORY PHYSICAL Observed: 10/23/2017 Status: COMPLETED Source: [place] 6:51 AM [facility] REPOSITORY HNO ID: [id number] Author: Kassandra Rios Service: Critical Care Author Type: Physician Type: HANDP Filed: 10/23/2017 7:18 AM Note Text: [facility] STAFF PHYSICIAN NOTE OF PERSONAL INVOLVEMENT IN [...] on Prednisone, Cyclophosphamide, and recently admitted to [facility] 10/13- requiring mechanical ventilation and PLEX), DVT/PE?needing extensive percutaneous thrombectomy of her IVC and lower extremity veins followed by placement of B/L?iliac venous?stents and an?endograft into her IVC, on long-term AC, HIT, CKD III, HTN, HFrEF, peripheral neuropathy, post phlebitic syndrome, who was transferred this morning from [facility] for retroperitoneal bleeding. Ms. Cannon was recently [facility] she [facility] admitted 10/13- for [...] prior similar episodes. Ms. Cannon presented to [facility] ED where she was found to have a retroperitoneal bleeding on CT and Hb dropped to 5.7 g/dL. IMPRESSION: I am seeing Ms. 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 SIGNATURE: Kassandra Rios MD [facility] PAGER:[phone] DATE of SERVICE: October 23, 2017 COMP METABOLIC PANEL Collected: 10/23/2017 Status: F Source: [place] 6:30 AM CLINIC OTHER CAMPUS REPOSITORY TYPE [...] By: #### CMP, LIPA, AMYL, CBCDIF #### [place] [id number] [place] [address] LIPASE Collected: 10/23/2017 Status: F Source: [place] 6:30 AM CLINIC OTHER CAMPUS REPOSITORY TYPE CODE TESTS RESULT OUT OF REFERENCE UNITS RANGE LAB LIPA 12-70 U/L Lipase 48 Performed By: #### CMP, LIPA, AMYL, CBCDIF #### [place] [address] AMYLASE Collected: 10/23/2017 Status: F Source: [place] 6:30 AM CLINIC OTHER CAMPUS REPOSITORY TYPE CODE TESTS RESULT OUT OF REFERENCE UNITS RANGE LAB AMYL 0-137 U/L Amylase 47 Performed By: #### CMP, LIPA, AMYL, CBCDIF #### [place] [address] CBC AND DIFFERENTIAL Collected: 10/23/2017 Status: F Source: [place] 6:30 AM CLINIC OTHER CAMPUS REPOSITORY TYPE CODE TESTS RESULT OUT OF REFERENCE UNITS RANGE LAB WBC 3.70-11.00 k/uL WBC High 17.22 LAB RBC 3.90-5.20 m/uL Low RBC 1.75 LAB HGB 11.5-15.5 g/dL Low Alert Hemoglobin 4.8 Result Comment: Called to and read back by: [facility] [place] ICU 10/23/17 Shelia25 Delicia LAB HCT 36.0-46.0 % Hematocrit 15.6 [...] k/uL Abs Lymph 1.03 LAB MONOS % Alexander% 3.0 LAB AAMONO <0.87 k/uL Abs Alexander 0.52 LAB EOS % Eosin% 0.0 LAB AAEOS <0.46 k/uL Abs Eosin 0.00 LAB BASOS % Baso% 0.0 LAB AABASO <0.11 k/uL Abs Baso 0.00 LAB ABIMMG k/uL 15.33 ANC(includeSEG+BAND ) LAB META % Austin% 1.0 LAB MYELOS % Myelo% 1.0 LAB ANIIMI Anisocytosis Present LAB LFTIMI Left Shift Present LAB BSTIPW Basophilic Stippling Occasional LAB OVAIMI Ovalocytes Few LAB POLIMI Polychromasia Slight LAB PLTEST Platelet Estimate Platelet estimate adequate LAB DTYP DTYPE Manual Diff Performed By: #### CMP, LIPA, AMYL, CBCDIF #### [place] [phone] MAGNESIUM Collected: 10/23/2017 Status: F Source: [place] 6:30 AM [facility] TYPE CODE TESTS RESULT OUT OF REFERENCE UNITS RANGE LAB MG 1.7-2.6 mg/dL Magnesium 2.0 Performed By: #### MG1 #### [place] [phone] TYPE AND SCREEN Collected: 10/23/2017 Status: F Source: [place] 6:30 AM [facility] REPOSITORY TYPE CODE TESTS RESULT OUT OF REFERENCE UNITS RANGE LAB %ABR B ABO/RH(D) POSITIVE LAB % Antibody Screen POS LAB %RADHA Antibody Identified Result Comment: ANTI-E PRESENT. ANTIBODY REACTIVITY, No Apparent Specificity. Performed By: #### TSCR #### [place] [phone] XR CHEST 1V FRONTAL Observed: 10/23/2017 Status: F Source: [facility] 6:11 AM [facility] REPOSITORY * * *Final Report* [...] resolution of previously seen bilateral airspace consolidation Glass Edger: MURTAZA Transcribe Date/Time: Oct 23 2017 6:14A Dictated by : ERASMO KELLY MD This examination was interpreted and the report reviewed and electronically signed by: ERASMO KELLY MD on Oct 23 2017 6:16AM EST [id number] ALLIED HEALTH Observed: 10/23/2017 Status: COMPLETED Source: [place] 6:05 AM [facility] REPOSITORY HNO ID: [id number] Author: Aline SanchezRtAllyson Calderón Service: Radiology Author Type: Chute Operator Type: Allied Health Filed: 10/23/2017 6:13 [...] HISTORY PHYSICAL Observed: 10/23/2017 Status: COMPLETED Source: [place] 6:03 AM [facility] REPOSITORY HNO ID: [id number] Author: Mitchell Phan MD Service: Critical Care [...] neuropathy, post-phlebitic syndrome who was admitted to [facility] MICU on 10/13 for alveolar hemorrhage. [...] in the mesentery. [facility]. 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, plasmapharesis q2 weeks, prednisone [...] 0 COMPOUNDED PRESCRIPTION Outpatient physical therapyPlease call [phone] to make an appointment Disp: 1 Each [...] ?C (97.7 ?F) (10/23/17519) Pulse: 100 (10/23/17 06) Resp: 17 (10/23/17599) [...] BMP, Mg, Phos Recent Labs 10/22/17 1245 10/22/1741110/21/17 0356 WBC 18.78* 9.05 11.41* HB 8.3* [...] NURSING PROG Observed: 10/23/2017 Status: COMPLETED Source: [place] 5:31 AM [facility] OTHER CAMPUS REPOSITORY O ID: [id number] Author: Nelia (Rn) Gabe Service: Nursing Author Type: Registered Nurse Type: Nursing Progress Note Filed: 10/23/2017 6:53 AM Note Text: Nursing Progress Note Patient Name: Paloma Cannon Patient [facility] [place] [address] Daily Note: 0510: Pt arrived to ICU [...] EMERGENCY DEPARTMENT Observed: 10/23/2017 Status: F Source: [place] SUMMARY 5:04 AM [facility] REPOSITORY [facility] Medical Records Department [address] [place] [address] Emergency Department Summary 10/23/17 0237 MR#: [id number] Acct: [id number] Name: PALOMA CANNON Rep #: [id number] : 1990 27 From: Lydia Harley MD PCP: Peyton Rogers MD Status: DEP ER - ER Visit Summary Date of Service: 10/23/17 Chief Complaint: Abdominal pain History of Present Illness: The patient is a 27 F with left- sided abdominal pain that started around 6 PM. The patient was just discharged early in the day from the [facility]. She had been admitted for alveolar hemorrhage [...] multiple doses of Dilaudid for pain. Requested [facility] for admission. [facility] did not have ICU beds at the main campus. Patient will instead go to [place]. Patient has remained hemodynamically stable. Awaiting transfusion. Awaiting transport. Treatment Plan: As above Disposition: Transfer to [facility] Impression: 1. Retroperitoneal hematoma 2. Anemia This note was generated with Indeed dictation software. It may contain incorrect words, [...] problems, contact your Primary Care Provider. Call [facility] ([phone]) or report to the closest Emergency Room. Call 911 if necessary. 10/23/17 0504 <Electronically signed by Lydia Harley MD> Date Lydia Harley MD Cosigner Signature (If Indicated): Date CC: Peyton Rogers MD URINALYSIS, COMPLETE Collected: 10/23/2017 Status: F Source: [place] 1:30 AM [facility] REPOSITORY Order Comment: How was Urine [...] URINE SEEN Performed By: #### L400.0001 #### [facility] [place], [address] TYPE AND SCREEN Collected: 10/23/2017 Status: F Source: [place] 1:30 AM [facility] REPOSITORY Order Comment: Reason for Type AND Screen/Red Cells: SURGERY TYPE CODE TESTS RESULT OUT OF RANGE REFERENCE UNITS LAB B10.0800 B Normal BLOOD TYPE GEL POSITIVE LAB B100.4000 High Antibody POSITIVE Screen Performed By: #### B101.7450, B101.1999 #### [facility] [address] [place], [address] ANTIBODY PANEL ID Collected: 10/23/2017 Status: C Source: [place] 1:30 AM [facility] REPOSITORY Order Comment: Reason for Type AND Screen/Red Cells: SURGERY TYPE CODE TESTS RESULT OUT OF REFERENCE UNITS RANGE LAB B101.1999 ANTIBODY PANEL ANTI-E Performed By: #### B101.7450, B101.1999 #### [facility] [address] [place], [place], [address] COMPREHENSIVE METABOLIC Collected: 10/23/2017 Status: F [facility] REPOSITORY TYPE CODE TESTS RESULT OUT [...] 9 Performed By: #### L500.4050, L501.2450 #### [facility] [address] [place], [address] LIPASE Collected: 10/23/2017 Status: F Source: [place] 12:30 AM [facility] REPOSITORY TYPE CODE TESTS RESULT OUT OF RANGE REFERENCE UNITS LAB L501.2450 73-393 U/L Normal LIPASE 248 Performed By: #### L500.4050, L501.2450 #### [facility] [address] [place], [address] CBC W/DIFF, AUTOMATED Collected: 10/23/2017 Status: C Source: [place] 12:30 AM [facility] REPOSITORY TYPE CODE TESTS RESULT OUT [...] November zeynep Performed By: #### L100.0100 #### [facility] [place], [address] PROTHROMBIN TIME W/INR Collected: 10/23/2017 Status: F Source: [place] 12:30 AM [facility] REPOSITORY TYPE CODE TESTS RESULT OUT OF RANGE REFERENCE UNITS LAB L300.4150 11.7-14.9 SECONDS High PROTIME 15.5 LAB L300.4200 Normal INR 1.2 Performed By: #### L300.3900 #### [facility] [address] [facility] [place], [address] ,SERUM,HCG QUALI. Collected: Status: F Source: [place] 10/23/2017 12:30 AM [facility] REPOSITORY TYPE CODE TESTS RESULT OUT OF REFERENCE UNITS RANGE LAB L700.7000 0-9 Nonpreg Negative Normal HCGSQUAL NEGATIVE LAB L700.6700 =>Qualitative mIU/mL Normal HCG Qual 2 triggr Performed By: #### L700.6800 #### [facility] [address] [facility] [place], [address] PARTIAL THROMBOPLAST Collected: 10/23/2017 Status: F Source: [place] TIME 12:30 AM [facility] REPOSITORY TYPE CODE TESTS RESULT OUT OF RANGE REFERENCE UNITS LAB L300.4310 24.1-36.2 Seconds Normal PTT 30.0 Performed By: #### L300.4310 #### [facility] [address] [place], [address] ABDOMEN/PELVIS WITHOUT Observed: 10/23/2017 Status: F Source: [place] CONT 12:23 AM [facility] REPOSITORY [facility] Imaging Services [address] [place] [address] Abdomen/Pelvis without Cont MR#: [id number] Acct: [id number] Name: PALOMA CANNON Rep #: [id number] : 1990 F 27 From: Raciel Briggs MD PCP: Peyton Rogers MD Status: REG ER Study: Abdomen/Pelvis without Cont Date of Exam: 10/23/17 Exam# [id number] Ordering Dr: Lydia Harley MD STUDY: CT [...] information has been verbally conveyed by Raciel rBiggs MD to Lydia Harley , Referring Physician, on 10/23/2017 01:40:37 (ET). Electronically Signed: Raciel Briggs MD at 1:40 EDT Tel , Service support , N.B. : The above information has been verbally conveyed by Raciel Briggs MD to Lydia Harley , Referring Physician, on 10/23/2017 01:40:37 (ET). CC: Peyton Rogers MD; Lydia Harley MD Glass Edger: Signed SR-ABDOMEN/PELVIS WITHOUT Observed: 10/23/2017 Status: F Source: [facility] IMPORT 12:00 AM [facility] [place] REPOSITORY Images were obtained outside of [facility] [id number] NURSING PROG Observed: 10/22/2017 Status: COMPLETED Source: [place] 4:00 PM [facility] REPOSITORY HNO ID: [id number] Author: Hank (Rn) JEFF Saeed Service: (none) Author Type: Registered Nurse Type: Nursing Progress Note Filed: 10/22/2017 4:17 PM Note Text: Nursing Progress Note Patient Name: Paloma Cannon Patient Location: [place] [address]/[facility] Daily Note:Pt discharged at 1600, going home in stable condition. Left floor via wheelchair, pushed by . Going home in family car. This note was completed by: Hank Saeed RN PLAN OF CARE Observed: 10/22/2017 Status: COMPLETED Source: [place] 1:55 PM [facility] REPOSITORY HNO ID: [id number] Author: Larisa Vila (Pharmacist) Service: Pharmacy Author [...] Pharmacist October 22, 2017 1:55 PM Pager: [phone] 10/22/2017 1:55 PM Medication List START taking these medications COMPOUNDED PRESCRIPTION Outpatient physical therapy Please call [phone] to make an appointment CHANGE how you [...] tablet CNDS Observed: 10/22/2017 Status: COMPLETED Source: [place] 1:31 PM [facility] REPOSITORY HNO ID: [id number] Author: Ranjan Mitchell Service: General Internal Medicine [...] X 2: 10/16; 10/18 US Spleen DVT [facility] H[facility]PITAL COURSE: 27 year old female who [...] Post phlebitic syndrome She initially presented to [facility] ED with hemoptysis/SOB - found to be in increased work of breathing and low sats - was intubated (10/13/17). Initial labs: Hgb 10.1, WBC 17, INR 2.1 (last dose of Warfarin 5 mg on 10/12/17 evening), Cr 1.32, K 5.0, Bicarb 18, AG 18, Lactate 12.4. Initial ABG on 100% FiO2/PEEP 14: 7.29, 44,79. Was transferred to [facility] MICU for further management of DAH [...] COMPOUNDED PRESCRIPTION Outpatient physical therapy Please call [phone] to make an appointment Qty: 1 Each [...] Time Provider Department Center 10/30/2017 11:40 AM [id number] [place] [facility] [place] 10/30/2017 11:40 AM [id number] ANDUJAR [facility] [place] 10/30/2017 12:30 PM [id number] [facility] [place] 11/13/2017 12:00 PM [id number] [facility] [place] 11/24/2017 9:00 AM [id number], CH[facility] 11/27/2017 12:00 PM [id number] [facility] [place] 12/05/2017 8:15 AM [id number], LISA (PT) [facility] 12/11/2017 12:00 PM [id number] [facility] [place] 12/11/2017 12:20 PM [id number] CHEST MAIN A21 RADMN RADIO A BLDG 12/11/2017 1:25 PM 5091-PARAMDENYSGUILLAUME PULLUDA PULM A/E/R/G 12/11/2017 1:25 PM 5091-PARAMBILGUILLAUME PULMMN PULM A/E/R/G 12/25/2017 12:00 PM [id number] [facility] [place] 01/08/2018 12:00 PM [id number]-DLSLOIBPD [facility] [place] 01/22/2018 12:00 PM [id number]-TTNEZCJGL [facility] [place] 02/05/2018 12:00 PM [id number]-NDATQMGWR [facility] [place] TIME OF CARE (Use first blank if not applicable): TIME OF CARE: Discharge Management: I personally spent greater than 30 minutes involved in the discharge management of this patient. SIGNATURE: Edwige Keene MD PATIENT NAME: Paloma Cannon DATE: October 22, 2017 TIME: 1:31 PM PAGER/CONTACT #: [phone] CBC Collected: 10/22/2017 Status: F Source: [place] 12:45 PM [facility] REPOSITORY TYPE CODE TESTS RESULT OUT [...] nRBC 0.02 Performed By: #### CBC #### [facility] [address], [place] [address] TYPE AND SCREEN Collected: 10/22/2017 Status: F Source: [place] 12:45 [facility] REPOSITORY TYPE CODE TESTS RESULT OUT OF REFERENCE UNITS RANGE LAB %ABR B ABO/RH(D) POSITIVE LAB % Antibody POS Screen Performed By: #### TSCR #### [facility] [address], [place] [address] PLAN OF CARE Observed: 10/22/2017 Status: COMPLETED Source: [place] 12:40 PM [facility] REPOSITORY HNO ID: [id number] Author: Dominique Rios Service: Hematology/Oncology Author Type: [...] call me with results Thank you. Dominique Rios DO Hematology Consult Service PROGRESS Observed: 10/22/2017 Status: COMPLETED Source: [place] 8:01 AM [facility] REPOSITORY HNO ID: [id number] Author: Ranjan Mitchell Service: General Internal Medicine [...] warmth over the legs bilaterally NEURO: AOx3, home mortgage disclosure act specialist grossly intact, moving all extremities. There is [...] and she was transferred back to the [facility] on 10/19. # Diffuse alveolar hemorrhage - [...] on 10/16 and 10/18. - Transferred to [facility] on 10/19 - Steroids decreased to prednisone [...] October 22, 2017 TIME: 8:51 AM PAGER: [phone] I have reviewed the progress note documented by the resident, and I personally confirmed/participated in the fernandes components. I evaluated and examined the patient with the resident team and reviewed the relevant data. I have discussed the case and management of the patient's care with the healthcare team, including residents, nursing, lining caser and the patient. Her h/h of 7.3 [...] discussion with hematology and RN Ranjan matson [id number] 10/22/2017 1:38 PM CBC Collected: 10/22/2017 Status: F Source: [place] 4:12 AM [facility] REPOSITORY TYPE CODE TESTS RESULT OUT [...] #### CBC, PT, CMP, MG1, PHOS #### [facility] [address] [place], [place] [address] PROTIME Collected: 10/22/2017 Status: F Source: [place] 4:12 AM [facility] REPOSITORY TYPE CODE TESTS RESULT OUT OF RANGE REFERENCE UNITS LAB PSEC 9.7-13.0 sec PT Sec 11.5 LAB INR 0.9-1.3 PT INR 1.1 Result Comment: Vitamin K Antagonist (VKA) Therapeutic Range: INR 2 to 3 (Target INR of 2.5) Note: For patients treated with VKA drugs, such as warfarin, the [place] [employer] 2012 Guideline recommends [...] Chest 2012, 141:7S-47S Diogenes RA, et al. [facility] 2017, 70: 252-289 Performed By: #### CBC, PT, CMP, MG1, PHOS #### [facility] [address] [place], [place] [address] COMP METABOLIC PANEL Collected: 10/22/2017 Status: F Source: [place] 4:12 AM [facility] [place] REPOSITORY TYPE CODE TESTS RESULT OUT OF REFERENCE UNITS RANGE LAB TP 6.3-8.0 g/dL Low Protein, Total 5.1 LAB ALB 3.9-4.9 g/dL Low Albumin 3.5 LAB CA 8.5-10.2 mg/dL Calcium, Total 8.5 LAB TBIL 0.2-1.3 mg/dL Bilirubin, Total 0.4 LAB ALKP 32-117 U/L Alkaline Phosphatase 38 LAB AST 13-35 U/L AST 19 LAB GLU 74-99 mg/dL Glucose 96 Result Comment: The [place] Diabetes Association (ADA) provides guidance for cutoff [...] Standards of Medical Care in Diabetes 2016, [place] [employer]. Diabetes Care. 2016.39(Suppl 1). LAB [...] #### CBC, PT, CMP, MG1, PHOS #### [facility] [address] [place] [address] MAGNESIUM Collected: 10/22/2017 Status: F Source: [place] 4:12 AM [facility] REPOSITORY TYPE CODE TESTS RESULT OUT OF REFERENCE UNITS RANGE LAB MG 1.7-2.3 mg/dL Magnesium 2.1 Performed By: #### CBC, PT, CMP, MG1, PHOS #### [facility] [address] [place], [place] [address] PHOSPHORUS Collected: 10/22/2017 Status: F Source: [place] 4:12 AM [facility] REPOSITORY TYPE CODE TESTS RESULT OUT OF REFERENCE UNITS RANGE LAB PHOS 2.7-4.8 mg/dL Phosphorus 2.7 Performed By: #### CBC, PT, CMP, MG1, PHOS #### [facility] [address] [place], [place] [address] CONSULT Observed: 10/21/2017 Status: COMPLETED Source: [place] 1:33 PM [facility] REPOSITORY HNO ID: [id number] Author: Rj Muro Service: Neurology Author Type: Physician Type: Consults Filed: 10/22/2017 10:04 AM Note Text: GENERAL NEUROLOGY, INPATIENT INITIAL CONSULT [facility] SERVICE DATE: October 21, 2017 SERVICE [...] and she was transferred back to the [facility] on 10/19. She also received solumedrol 500mg [...] ? Coordination: Finger-to- nose-finger intact bilaterally and Aryg-jg-wdon intact bilaterally. ? Rapid Alternating movements: intact [...] setting). Signed: Lisseth Hinojosa DO Title: Neurology [facility] Date: October 21, 2017 Time: 1:34 [...] Neurologist - [facility] PROGRESS Observed: 10/21/2017 Status: COMPLETED Source: [place] 8:51 AM [facility] REPOSITORY HNO ID: [id number] Author: Ranjan Mitchell Service: General Internal Medicine [...] warmth over the legs bilaterally NEURO: AOx3, home mortgage disclosure act specialist grossly intact, moving all extremities. There is [...] and she was transferred back to the [facility] on 10/19. # Diffuse alveolar hemorrhage - [...] on 10/16 and 10/18. - Transferred to [facility] on 10/19 - Steroids decreased to prednisone 80 mg QD on 10/21 - No hemoptysis or pulmonary symptoms PLAN: - Continue prednisone 80 mg QD and will taper according to hematology recs - Increase solumedrol to 250 if hemoptysis recurs and persists. - CBC daily - Follow up with [facility] on plan for outpatient AC ? [...] October 21, 2017 TIME: 8:51 AM PAGER: [phone] I have reviewed the progress note documented by the resident, and I personally confirmed/participated in the fernandes components. I evaluated and examined the patient with the resident team and reviewed the relevant data. I have discussed the case and management of the patient's care with the healthcare team, including residents, nursing, lining caser and the patient. Breathing ok DAH resolved Cr up from yesterday but getting volume contraction, @ baseline Her foot numbeness is likely from peripheral neuropathy ? From critical illness vs APLA Would get neuro on board. Home dose diuresis after skipping one day Aim for home soon Ranjan matson [id number] 10/21/2017 2:01 PM PROTIME Collected: 10/21/2017 Status: F Source: [place] 3:56 AM [facility] [place] [facility] REPOSITORY TYPE CODE TESTS RESULT OUT OF RANGE REFERENCE UNITS LAB PSEC 9.7-13.0 sec PT Sec 11.1 LAB INR 0.9-1.3 PT INR 1.1 Result Comment: Vitamin K Antagonist (VKA) Therapeutic Range: INR 2 to 3 (Target INR of 2.5) Note: For patients treated with VKA drugs, such as warfarin, the [place] [employer]icians 2012 Guideline recommends [...] Chest 2012, 141:7S-47S Diogenes RA, et al. [facility] 2017, 70: 252-289 Performed By: #### PT, CBC, CMP, MG1, PHOS #### [facility] [address], [place] [address] CBC Collected: 10/21/2017 Status: F Source: [place] 3:56 AM [facility] REPOSITORY TYPE CODE TESTS RESULT OUT [...] #### PT, CBC, CMP, MG1, PHOS #### [facility] [address], [place] [address] COMP METABOLIC PANEL Collected: 10/21/2017 Status: F Source: [place] 3:56 AM [facility] REPOSITORY TYPE CODE TESTS RESULT OUT OF REFERENCE UNITS RANGE LAB TP 6.3-8.0 g/dL Low Protein, Total 5.9 LAB ALB 3.9-4.9 g/dL Albumin 3.9 LAB CA 8.5-10.2 mg/dL Calcium, Total 8.9 LAB TBIL 0.2-1.3 mg/dL Bilirubin, Total 0.4 LAB ALKP 32-117 U/L Alkaline Phosphatase 45 LAB AST 13-35 U/L AST 15 LAB GLU 74-99 mg/dL Glucose High 113 Result Comment: The [place] Diabetes Association (ADA) provides guidance for cutoff [...] Standards of Medical Care in Diabetes 2016, [place] [employer]. Diabetes Care. 2016.39(Suppl 1). LAB [...] #### PT, CBC, CMP, MG1, PHOS #### [facility] [address] [place] [address] MAGNESIUM Collected: 10/21/2017 Status: F Source: [place] 3:56 AM [facility] REPOSITORY TYPE CODE TESTS RESULT OUT OF REFERENCE UNITS RANGE LAB MG 1.7-2.3 mg/dL Magnesium 2.1 Performed By: #### PT, CBC, CMP, MG1, PHOS #### [place] [address] PHOSPHORUS Collected: 10/21/2017 Status: F Source: [place] 3:56 AM [facility] REPOSITORY TYPE CODE TESTS RESULT OUT OF REFERENCE UNITS RANGE LAB PHOS 2.7-4.8 mg/dL Phosphorus 2.8 Performed By: #### PT, CBC, CMP, MG1, PHOS #### [place] [address] NURSING PROG Observed: 10/20/2017 Status: COMPLETED Source: [place] 8:22 PM [facility] REPOSITORY HNO ID: [id number] Author: Luca (Rn) JEFF Gross Service: (none) Author Type: Registered Nurse Type: Nursing Progress Note Filed: 10/20/2017 10:04 PM Note Text: Nursing Progress Note Patient Name: Paloma Cannon Patient Location: [place] [address] Daily Note: 820PM, patient c/o of new onset left yates pain. Patient stated her right yates went from a numbing feel to a sharp pain, pain is aggravated when she ambulates and is alleviated with elevation. Heat packs and PO dilaudid 2mg were given to patient. Team paged and notified. Will continue to monitor patient. This note was completed by: Luac Gross, RN FONDAPARINUX ASSAY Collected: 10/20/2017 Status: F Source: [place] 3:58 PM [facility] REPOSITORY TYPE CODE TESTS RESULT OUT [...] (body weight >100 kg) once daily, the sega-eglodo-jsmnkefa doses provide similar mean steady-state peaks and minimum plasma concentrations across all body weight categories. The mean peak steady-state plasma concentration is in the range of 1.20 to 1.26 mg/L. In these patients, the mean minimum steady-state plasma concentration is in the range of 0.46 to 0.62 mg/L. (Prescribing information for Arixtra from [employer], April 2010) Note: The fondaparinux assay is performed by an anti-Xa methodology and that comcomitant therapy with unfractionated or low molecular weight heparin could falsely elevate the fondaparinux levels. Performed By: #### FONDXA #### [facility] [address] [place], [place] [address] CASE MANAGEM Observed: 10/20/2017 Status: COMPLETED Source: [place] 3:22 PM [facility] REPOSITORY O ID: [id number] Author: Kalpesh Hoang (Sw) Service: Care Management Author Type: Steel Finisher Type: Care Mgt Progress Note Filed: 10/20/2017 [...] any weekend questions or needs, contact pager #[phone]. SIGNATURE: JUAN PABLO Glover PATIENT NAME: Paloma Cannon DATE: October 20, 2017 TIME: 3:22 PM PAGER/CONTACT #: [phone] THERAPY NT Observed: 10/20/2017 Status: COMPLETED Source: [place] 10:56 AM [facility] REPOSITORY HNO ID: [id number] Author: Renetta (Pt) Dominic Service: Physical Therapy Author Type: Physical Therapist Type: Therapy (PT/OT/Speech/Resp) Filed: 10/20/2017 11:09 AM Note Text: Physical Therapy Evaluation SERVICE DATE: 10/20/2017 SERVICE TIME: 55 to 1040 ROOM: [place] [address] Recommended Discharge Disposition: Outpatient Physical Therapy Recommended [...] (generalized);Unsteadiness on feet Interventions Provided: Evaluation;Therapeutic Activity (98665);Therapeutic Exercise (70414) $ Evaluation-Moderate (34547) Billed Units: 1 unit Therapeutic Exercise (21587) Treatment Minutes: 10 1 unit Skilled Intervention(s): [...] extension -HS curls -Heel raises Therapeutic Activity (24130) Treatment Minutes: 17 1 unit Skilled Intervention(s): [...] with PMHx including: 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 ? Patient Report: I have been waiting for you Home Environment Patient Lives With: Significant Other Assistance Available: multimedia coordinator Entry To Home: No Stairs Number Of [...] 20, 2017 TIME: 10:57 AM PAGER/CONTACT #: [phone] PROTIME Collected: 10/20/2017 Status: F Source: [place] 4:15 AM [facility] REPOSITORY TYPE CODE TESTS RESULT OUT OF RANGE REFERENCE UNITS LAB PSEC 9.7-13.0 sec PT Sec 11.5 LAB INR 0.9-1.3 PT INR 1.1 Result Comment: Vitamin K Antagonist (VKA) Therapeutic Range: INR 2 to 3 (Target INR of 2.5) Note: For patients treated with VKA drugs, such as warfarin, the [place] [employer]icians 2012 Guideline recommends [...] Chest 2012, 141:7S-47S Diogenes RA, et al. [facility] 2017, 70: 252-289 Performed By: #### PT, CBC, IRON, CMP, MG1, PHOS, TRANSF, FERR #### [facility] [address], [place] [address] CBC Collected: 10/20/2017 Status: F Source: [place] 4:15 AM [facility] REPOSITORY TYPE CODE TESTS RESULT OUT [...] IRON, CMP, MG1, PHOS, TRANSF, FERR #### [facility] [address], [place] [address] IRON AND TIBC Collected: 10/20/2017 Status: F Source: [place] 4:15 AM [facility] REPOSITORY TYPE CODE TESTS RESULT OUT OF REFERENCE UNITS RANGE LAB IRN 41-186 ug/dL Low Iron 28 LAB TIBC 232-386 ug/dL TIBC 300 LAB SAT 15-57 % Low Transferrin Saturatn 9 Performed By: #### PT, CBC, IRON, CMP, MG1, PHOS, TRANSF, FERR #### [facility] [address] [place], [place] [address] COMP METABOLIC PANEL Collected: 10/20/2017 Status: F Source: [place] 4:15 AM [facility] REPOSITORY TYPE CODE TESTS [...] mg/dL Glucose High 202 Result Comment: The [place] Diabetes Association (ADA) provides guidance for cutoff [...] Standards of Medical Care in Diabetes 2016, [place] [employer]. Diabetes Care. 2016.39(Suppl 1). LAB [...] IRON, CMP, MG1, PHOS, TRANSF, FERR #### [place] [phone] MAGNESIUM Collected: 10/20/2017 Status: F Source: [place] 4:15 AM [facility] REPOSITORY TYPE CODE TESTS RESULT OUT OF REFERENCE UNITS RANGE LAB MG 1.7-2.3 mg/dL Magnesium 2.1 Performed By: #### PT, CBC, IRON, CMP, MG1, PHOS, TRANSF, FERR #### [place] [phone] PHOSPHORUS Collected: 10/20/2017 Status: F Source: [place] 4:15 AM [facility] REPOSITORY TYPE CODE TESTS RESULT OUT OF REFERENCE UNITS RANGE LAB PHOS 2.7-4.8 mg/dL Phosphorus 3.2 Performed By: #### PT, CBC, IRON, CMP, MG1, PHOS, TRANSF, FERR #### [place] [phone] TRANSFERRIN Collected: 10/20/2017 Status: F Source: [place] 4:15 AM [facility] REPOSITORY TYPE CODE TESTS RESULT OUT OF REFERENCE UNITS RANGE LAB TRANSF 200-360 mg/dL Transferrin 235 Performed By: #### PT, CBC, IRON, CMP, MG1, PHOS, TRANSF, FERR #### [place] [address] FERRITIN Collected: 10/20/2017 Status: F Source: [place] 4:15 AM [facility] REPOSITORY TYPE CODE TESTS RESULT OUT OF REFERENCE UNITS RANGE LAB FERR 14.7-205.1 ng/mL Ferritin 156.0 Performed By: #### PT, CBC, IRON, CMP, MG1, PHOS, TRANSF, FERR #### [facility] [address] [place], [place] [address] HISTORY PHYSICAL Observed: 10/19/2017 Status: COMPLETED Source: [place] 9:19 PM [facility] REPOSITORY HNO ID: [id number] Author: Ranjan Mitchell Service: General Internal Medicine Author Type: Physician Type: HANDP Filed: 10/20/2017 2:40 PM Note Text: HISTORY AND PHYSICAL EXAMINATION [facility] SERVICE DATE: 10/19/2017 SERVICE TIME: 09.21 PM [...] Post phlebitic syndrome She initially presented to [facility] ED with hemoptysis/SOB - found to be in increased work of breathing and low sats - was intubated (10/13/17). Initial labs: Hgb 10.1, WBC 17, INR 2.1 (last dose of Warfarin 5 mg on 10/12/17 evening), Cr 1.32, K 5.0, Bicarb 18, AG 18, Lactate 12.4. Initial ABG on 100% FiO2/PEEP 14: 7.29, 44,79. Was transferred to [facility] MICU for further management of DAH [...] to Warfarin bridging - HIT (heparin-induced thrombocytopenia) ([facility]) - Nontoxic multinodular goiter - Obese - [...] 19, 2017 TIME: 9:19 PM PAGER/CONTACT #: [phone] Please see resident note above. Agree with above. Full addendum to this MICU transfer to follow by Staff Dr. Mitchell. Elida Erickson, Internal Medicine Resident Pager [phone] 10/20/2017 12:06 PM I have reviewed the progress note documented by the resident, and I personally confirmed/participated in the fernandes components. I evaluated and examined the patient with the resident team and reviewed the relevant data. I have discussed the case and management of the patient's care with the healthcare team, including residents, nursing, lining caser and the patient. Breathing ok No pulm crackles, and sats are ok Her legs are bigger had prior R peripheral neuropathy But endorses new symptoms on L side, Will reassess after diuresis. No other focal neuro symptoms to consider stroke Arixtra decreased to 7.5 based on discussion with hematology staff and steroids changed to PO 80 mg Ranjan matson [id number] 10/20/2017 2:40 PM NURSING PROG Observed: 10/19/2017 Status: COMPLETED Source: [place] 7:40 PM [facility] REPOSITORY HNO ID: [id number] Author: Emilie SanchezRn) JEFF Robles Service: (none) Author Type: Registered Nurse Type: Nursing Progress Note Filed: 10/19/2017 7:52 PM Note Text: Nursing Progress Note Patient Name: Paloma Cannon Patient Location: [id number] Transfer Note: Patient transferred into room/unit [facility] in stable condition. Actions taken: No futher actions taken at this time. Will continue to monitor and check with patient. Patient belongings with patient. Patient oriented to room and nursing call button. This note was completed by: Emilie Robles RN NURSING PROG Observed: 10/19/2017 Status: COMPLETED Source: [place] 6:37 PM [facility] REPOSITORY [facility] ID: [id number] Author: Opal Esteban (Rn) JEFF Eric Service: Nursing Author Type: Registered Nurse Type: Nursing Progress Note Filed: 10/19/2017 7:37 PM Note Text: Nursing Progress Note Patient Name: Paloma Cannon Patient Location: G061 [id number]/[id number] Transfer Note: Report called to Lisbet Sanchez ( accepting nursse) on G91. Patient to be transferred to [facility] and is in stable condition. The patient's spouse was called and given the number to 1 unit and informed of the transfer. His questions were answered. Belongings sent with her include: glasses, glasses case, laptop computer and charging cord, cell phone and charging cord, hat, backpack and body spray. The patient has transfer orders and the note of sign out to [facility] team is completed. At 19:28pm transferred in stable condition to [facility] with all belongings. This note was completed by: Opal J Eric, RN PLAN OF CARE Observed: 10/19/2017 Status: COMPLETED Source: [place] 5:03 PM [facility] REPOSITORY HNO ID: [id number] Author: Giovanny Blanco Service: Critical Care Author Type: Resident Type: Plan of Care Filed: 10/19/2017 5:03 PM Note Text: [facility]. Signout given to [facility]. Giovanny Blanco MD October 19, 2017 5:03 PM CASE MANAGEM Observed: 10/19/2017 Status: COMPLETED Source: [place] 12:41 PM [facility] REPOSITORY HNO ID: [id number] Author: Radha Hope RN Service: Case Management Author Type: Registered Nurse Type: Care Mgt Progress Note Filed: 10/19/2017 12:42 PM Note Text: CARE MANAGEMENT PROGRESS NOTE SERVICE DATE: 10/19/2017 SERVICE TIME: 12:41 PM LOS: 6 days Needs Prior to Discharge: To Be Determined Anticipate transfer to [facility]. D/C needs and date TBD. SIGNATURE: Radha Hope RN PATIENT NAME: Paloma Cannon DATE: October 19, 2017 TIME: 12:41 PM PAGER/CONTACT #: [phone] CBC Collected: 10/19/2017 Status: F Source: [place] 12:34 PM [facility] REPOSITORY TYPE CODE TESTS RESULT OUT [...] Absolute nRBC Performed By: #### CBC #### [facility] [address] [place], [place] [address] PROGRESS Observed: 10/19/2017 Status: COMPLETED Source: [place] 11:19 AM [facility] REPOSITORY HNO ID: [id number] Author: Stephane Austin Service: Critical Care Author Type: Physician Type: Progress Notes Filed: 10/19/2017 1:24 PM Note Text: MICU PROGRESS NOTE WITH [facility] Primary Service: [place] Team SERVICE DATE: 10/19/2017 SERVICE TIME: 0700 [...] for chronic LE edema - Transfer to [facility] SUBJECTIVE: - No acute events overnight, HDS [...] bilateral iliac stents and IVC endograft, 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, plasmapharesis q2 weeks, prednisone [...] 19, 2017 TIME: 11:19 AM PAGER/CONTACT #: [phone] [facility] STAFF PHYSICIAN NOTE OF PERSONAL INVOLVEMENT IN [...] bilateral iliac stents and IVC endograft, 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 SIGNATURE: Stephane Austin MD [facility] PAGER:[phone] DATE of SERVICE: October 19, 2017 TIME of SERVICE: 1:24 PM CONSULT PROG Observed: 10/19/2017 Status: COMPLETED Source: [place] 10:35 AM [facility] REPOSITORY HNO ID: [id number] Author: Juan Christopher (Fel) Service: Hematology/Oncology Author [...] MD Fellow, Hematology and Medical Oncology Pager: [phone] PROTIME Collected: 10/19/2017 Status: F Source: [place] 4:48 AM [facility] REPOSITORY TYPE CODE TESTS RESULT OUT OF RANGE REFERENCE UNITS LAB PSEC 9.7-13.0 sec PT Sec 11.4 LAB INR 0.9-1.3 PT INR 1.1 Result Comment: Vitamin K Antagonist (VKA) Therapeutic Range: INR 2 to 3 (Target INR of 2.5) Note: For patients treated with VKA drugs, such as warfarin, the [place] [employer] 2012 Guideline recommends [...] JAC 2017, 70: 252-289 Performed By: #### PT #### [facility] [address] [place], [place] [address] PROTIME Collected: 10/18/2017 Status: F Source: [place] 11:25 PM [facility] REPOSITORY TYPE CODE TESTS RESULT OUT OF RANGE REFERENCE UNITS LAB PSEC 9.7-13.0 sec PT Sec 11.7 LAB INR 0.9-1.3 PT INR 1.1 Result Comment: Vitamin K Antagonist (VKA) Therapeutic Range: INR 2 to 3 (Target INR of 2.5) Note: For patients treated with VKA drugs, such as warfarin, the [place] [employer]icians 2012 Guideline recommends [...] Chest 2012, 141:7S-47S Diogenes RA, et al. [facility] 2017, 70: 252-289 Performed By: #### PT, CMP, MG1, PHOS, CBC #### [facility] [address] [place], [place] [address] COMP METABOLIC PANEL Collected: 10/18/2017 Status: F Source: [place] 11:25 PM [facility] REPOSITORY TYPE CODE TESTS RESULT OUT [...] mg/dL Glucose High 195 Result Comment: The [place] [employer] (ADA) provides guidance for cutoff [...] Standards of Medical Care in Diabetes 2016, [place] [employer]. Diabetes Care. 2016.39(Suppl 1). LAB [...] #### PT, CMP, MG1, PHOS, CBC #### [facility] [address] [place], [place] [address] MAGNESIUM Collected: 10/18/2017 Status: F Source: [place] 11:25 PM [facility] REPOSITORY TYPE CODE TESTS RESULT OUT OF REFERENCE UNITS RANGE LAB MG 1.7-2.3 mg/dL Magnesium 2.1 Performed By: #### PT, CMP, MG1, PHOS, CBC #### [facility] [address], [place] [address] PHOSPHORUS Collected: 10/18/2017 Status: F Source: [place] 11:25 PM [facility] REPOSITORY TYPE CODE TESTS RESULT OUT OF REFERENCE UNITS RANGE LAB PHOS 2.7-4.8 mg/dL Phosphorus 3.3 Performed By: #### PT, CMP, MG1, PHOS, CBC #### [facility] [address], [place] [address] CBC Collected: 10/18/2017 Status: F Source: [place] 11:25 PM [facility] REPOSITORY TYPE CODE TESTS RESULT OUT [...] #### PT, CMP, MG1, PHOS, CBC #### [facility] [address], [place] [address] FONDAPARINUX ASSAY Collected: 10/18/2017 Status: F Source: [place] 3:54 PM [facility] REPOSITORY TYPE CODE TESTS RESULT OUT OF REFERENCE UNITS RANGE LAB JEF 0.00 mg/L Fondaparinux High 1.69 Performed By: #### FONDXA #### [facility] [address], [place] [address] PROGRESS Observed: 10/18/2017 Status: COMPLETED Source: [place] 3:17 PM [facility] REPOSITORY HNO ID: [id number] Author: Carmita (Rn) JEFF Verdin Service: (none) Author Type: Registered Nurse Type: Progress Notes Filed: 10/18/2017 3:18 PM Note Text: Opened in error.Carmita Verdin RN US ABD SPLEEN Observed: 10/18/2017 Status: F Source: [place] 1:12 PM [facility] [place] REPOSITORY * * *Final Report* * * [...] SPLENOMEGALY, SIMILAR TO CT 02/03/2017. NO LESION. Glass Edger: MURTAZA Transcribe Date/Time: Oct 18 2017 1:30P Dictated by : FRANTZ MONROY MD This examination was interpreted and the report reviewed and electronically signed by: CAROLYN YEBOAH MD on Oct 18 2017 1:44PM EST [id number] PROCEDURE Observed: 10/18/2017 Status: COMPLETED Source: [place] 1:07 PM [facility] REPOSITORY HNO ID: [id number] Author: Zahra Wallace Service: Apheresis Author Type: [...] Completed by Apheresis Nurse: Devi Fernandes RN [facility] STAFF PHYSICIAN NOTE OF PERSONAL INVOLVEMENT IN [...] MD October 18, 2017 3:10 PM Pager: [phone] PROGRESS Observed: 10/18/2017 Status: COMPLETED Source: [place] 12:55 PM [facility] REPOSITORY HNO ID: [id number] Author: Stephane Austin Service: Critical Care Author Type: Physician Type: Progress Notes Filed: 10/18/2017 9:21 PM Note Text: MICU PROGRESS NOTE WITH COORD CARE Primary Service: [place] Team SERVICE DATE: 10/18/2017 SERVICE TIME: 0700 [...] 18, 2017 TIME: 12:55 PM PAGER/CONTACT #: [phone] [facility] STAFF PHYSICIAN NOTE OF PERSONAL INVOLVEMENT IN [...] bilateral iliac stents and IVC endograft, 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 SIGNATURE: Stephane Austin MD [facility] PAGER:[phone] DATE of SERVICE: October 18, 2017 TIME of SERVICE: 9:21 PM CBC Collected: 10/18/2017 Status: F Source: [place] 11:47 AM [facility] [place] REPOSITORY TYPE CODE TESTS RESULT OUT OF [...] nRBC <0.01 Performed By: #### CBC #### [facility] [address] [place], [place] [address] [facility] Observed: 10/18/2017 Status: COMPLETED Source: [place] 10:00 AM [facility] REPOSITORY Visit (SP) Office ([facility]) PALOMA CANNON ([id number]) 1990 F PTR Date Time Provider Department 10/18/17 10:00 AM [facility] During your visit today, we recorded the following information about you: Carmita Verdin RN, RN 10/18/2017 3:18 PM Signed Opened in error.Carmita Verdin RN Referring Provider: LISSETH CLAUDIO [[id number]] Allergies As of Date: 10/18/2017 Noted Allergy [...] Fully Assessed Primary Visit Diagnosis:APS (antiphospholipid syndrome) ([facility]) [D68.61] Prescriptions as of 10/18/2017 Sig: GABAPENTIN [...] CONSULT PROG Observed: 10/18/2017 Status: COMPLETED Source: [place] 9:32 AM [facility] REPOSITORY HNO ID: [id number] Author: Dominique Rios Service: Hematology/Oncology Author Type: [...] Lymph 1.00 - 4.00 k/uL 0.04 (L) Alexander% % 3.9 Abs Alexander <0.87 k/uL 0.30 Eosin% % 0.0 Abs [...] MD Fellow, Hematology and Medical Oncology Pager: [phone] [facility] STAFF PHYSICIAN NOTE OF PERSONAL INVOLVEMENT IN [...] with questions. SIGNATURE: Dominique Rios DO PAGER: [phone] DATE of SERVICE: October 18, 2017 TIME of SERVICE: 6:15 PM CBC Collected: 10/18/2017 Status: F Source: [place] 12:29 AM [facility] REPOSITORY TYPE CODE TESTS RESULT OUT [...] #### CBC, PT, CMP, MG1, PHOS #### [facility] [address] [place], [place] [address] PROTIME Collected: 10/18/2017 Status: F Source: [place] 12:29 AM [facility] REPOSITORY TYPE CODE TESTS RESULT OUT OF RANGE REFERENCE UNITS LAB PSEC 9.7-13.0 sec PT Sec 11.5 LAB INR 0.9-1.3 PT INR 1.1 Result Comment: Vitamin K Antagonist (VKA) Therapeutic Range: INR 2 to 3 (Target INR of 2.5) Note: For patients treated with VKA drugs, such as warfarin, the [place] [employer]icians 2012 Guideline recommends [...] Chest 2012, 141:7S-47S Diogenes RESENDIZ et al. [facility] 2017, 70: 252-289 Performed By: #### CBC, PT, CMP, MG1, PHOS #### [facility] [address] [place], [place] [address] COMP METABOLIC PANEL Collected: 10/18/2017 Status: F Source: [place] 12:29 AM [facility] REPOSITORY TYPE CODE TESTS [...] mg/dL Glucose High 143 Result Comment: The [place] Diabetes Association (ADA) provides guidance for cutoff [...] Standards of Medical Care in Diabetes 2016, [place] [employer]. Diabetes Care. 2016.39(Suppl 1). LAB [...] #### CBC, PT, CMP, MG1, PHOS #### [facility] [address] [place] [address] MAGNESIUM Collected: 10/18/2017 Status: F Source: [place] 12:29 AM [facility] REPOSITORY TYPE CODE TESTS RESULT OUT OF REFERENCE UNITS RANGE LAB MG 1.7-2.3 mg/dL High Magnesium 2.5 Performed By: #### CBC, PT, CMP, MG1, PHOS #### [facility] [address] [place] [address] PHOSPHORUS Collected: 10/18/2017 Status: F Source: [place] 12:29 AM [facility] REPOSITORY TYPE CODE TESTS RESULT OUT OF REFERENCE UNITS RANGE LAB PHOS 2.7-4.8 mg/dL Phosphorus 4.5 Performed By: #### CBC, PT, CMP, MG1, PHOS #### [facility] [address] [place] [address] PLAN OF CARE Observed: 10/17/2017 Status: COMPLETED Source: [place] 6:06 PM [facility] REPOSITORY HNO ID: [id number] Author: Aline Leblanc (Pharmacist) Service: Pharmacy Author [...] medication history: Yes Reconciliation completed? Yes All INSPECTOR FILTER TIP medications addressed by LIP Additional comments: Held medication: Warfarin 2.5 mg tablet Active Medications INSPECTOR FILTER TIP: Amlodipine 5 m tabs po daily, hold [...] See Comments Elevated cardiac enzymes Preferred Pharmacy: [facility] [address] [place] [address], [place] [address] [address] [facility] [phone] Current INSPECTOR FILTER TIP Medications: Prior to Admission medications as of [...] needed. Unknown at Unknown time Jcarlos Rand (Sand Sifter) October 17, 2017 6:07 PM ALINE LEBLANC, PHARMACIST October 19, 2017 12:15 PM CASE MANAGEM Observed: 10/17/2017 Status: COMPLETED Source: [place] 11:41 AM [facility] REPOSITORY HNO ID: [id number] Author: Radha Sauer) JEFF Hope Service: Case Management Author Type: Registered Nurse Type: Care Mgt Progress Note Filed: 10/17/2017 11:41 AM Note Text: CARE MANAGEMENT PROGRESS NOTE SERVICE DATE: 10/17/2017 SERVICE TIME: 11:41 AM LOS: 4 days Needs Prior to Discharge: To Be Determined Anticipate transfer to [facility]. D/C needs and date TBD. SIGNATURE: Radha Hope RN PATIENT NAME: Paloma Cannon DATE: October 17, 2017 TIME: 11:41 AM PAGER/CONTACT #: [phone] NUTRITION Observed: 10/17/2017 Status: COMPLETED Source: [place] 11:35 AM [facility] [place] REPOSITORY HNO ID: [id number] Author: Edel Josephine Guillen Service: NST-Nutrition Support Team Author Type: [...] 15 oz) 10/18/2016 114.306 kg 44.64 ? [place] body weight 52.3 kg Dosing Weight: 101 kg Estimated kilocalorie needs: 7352-8285 kilocalories determined by 11-14 kcal/kg Estimated protein needs: 78-105 grams determined by 1.5-2.0 g/kg [place] weight Estimated fluid needs: per NUTRITION FOCUSED PHYSICAL EXAM: Subcutaneous Fat Loss [...] No functional impairment, normal with no limitations INSPECTOR FILTER TIP per pt Temperature Max in 24 hours: [...] 2 units SIGNATURE: Edel Guillen RD, LD, [facility] PATIENT NAME: Paloma Cannon DATE: October 17, 2017 TIME: 8:15 AM PAGER: [phone] XR CHEST 1V FRONTAL Observed: 10/17/2017 Status: F Source: [facility] 11:19 AM [facility] [place] REPOSITORY * * *Final Report* * * [...] silhouette: The cardiomediastinal silhouette is unchanged. Other: Glass Edger: MURTAZA Transcribe Date/Time: Oct 17 2017 12:25P Dictated by : DANNY COSTA MD This examination was interpreted and the report reviewed and electronically signed by: DANNY COSTA MD on Oct 17 2017 12:26PM EST [id number] CK, TOTAL AND CKMB Collected: 10/17/2017 Status: F Source: [place] 10:42 [facility] REPOSITORY TYPE CODE TESTS RESULT OUT [...] U/L. Performed By: #### CKCKMB, AMINAH #### [facility] [address] [place] [address] TROPONIN T Collected: 10/17/2017 Status: F Source: [place] 10:42 AM [facility] REPOSITORY TYPE CODE TESTS RESULT OUT OF REFERENCE UNITS RANGE LAB TROPT 0.000-0.029 ng/mL Troponin T <0.010 Performed By: #### CKCKMB, AMINAH #### [facility] [address] [place] [address] CONSULT PROG Observed: 10/17/2017 Status: COMPLETED Source: [place] 10:27 AM [facility] REPOSITORY HNO ID: [id number] Author: Dominique Rios Service: Hematology/Oncology Author Type: [...] - 4.00 k/uL 0.07 (L) 0.04 (L) Alexander% % 5.2 3.9 Abs Alexander <0.87 k/uL 0.30 0.30 Eosin% % 0.0 [...] MD Fellow, Hematology and Medical Oncology Pager: [phone] [facility] STAFF PHYSICIAN NOTE OF PERSONAL INVOLVEMENT IN [...] service today. SIGNATURE: Dominique Rios DO PAGER: [phone] DATE of SERVICE: October 17, 2017 TIME of SERVICE: 7:51 PM 12 LEAD ELECTROCARDIOGRAM Observed: 10/17/2017 Status: F Source: [place] 8:19 AM [facility] REPOSITORY [facility] [address] [place] [address] 12 Lead EKG 10/13/17 1016 MR#: [id number] Acct: [id number] Name: PALOMA CANNON Rep #: [id number] : 1990 27 From: Eddie Kwon MD [...] ECG Confirmed by EDDIE KWON MD ([id number]), brands editor FARRUKH CHAVEZ ([id number]) on 10/17/2017 8:19:20 AM Referred By: Magdalena Lewis Confirmed By:EDDIE KWON MD 10/17/17818 Date Eddie Kwon MD CC: Peyton Rogers MD; Lydia Harley MD Signed PROGRESS Observed: 10/17/2017 Status: COMPLETED Source: [place] 7:06 AM [facility] [place] REPOSITORY HNO ID: [id number] Author: Stephane Austin Service: Critical Care Author Type: Physician Type: Progress Notes Filed: 10/17/2017 5:17 PM Note Text: MICU PROGRESS NOTE WITH COORD CARE Primary Service: [place] Team SERVICE DATE: 10/17/2017 SERVICE TIME: 7:07 [...] bilateral iliac stents and IVC endograft, 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 SIGNATURE: Stephane Austin MD [facility] PAGER:[phone] DATE of SERVICE: October 17, 2017 TIME of SERVICE: 5:17 PM CBC AND DIFFERENTIAL Collected: 10/16/2017 Status: F Source: [place] 11:30 PM [facility] [place] REPOSITORY TYPE CODE TESTS RESULT OUT OF [...] Abs Low Lymph 0.04 LAB AMONO % Alexander% 3.9 LAB AAMONO <0.87 k/uL Abs Alexander 0.30 LAB AEOS % Eosin% 0.0 LAB AAEOS <0.46 k/uL Abs Eosin <0.03 LAB ABASO % Baso% 0.1 LAB AABASO <0.11 k/uL Abs Baso <0.03 LAB AUNRBC 0 /100 WBC NRBCs High 0.4 LAB ABNRBC <0.01 k/uL High Absolute nRBC 0.03 LAB DTYP DTYPE Auto Diff Performed By: #### CBCDIF, PT, CMP, MG1, PHOS #### [facility] [address] [place], [place] [address] PROTIME Collected: 10/16/2017 Status: F Source: [place] 11:30 PM [facility] REPOSITORY TYPE CODE TESTS RESULT OUT OF RANGE REFERENCE UNITS LAB PSEC 9.7-13.0 sec PT Sec 11.4 LAB INR 0.9-1.3 PT INR 1.1 Result Comment: Vitamin K Antagonist (VKA) Therapeutic Range: INR 2 to 3 (Target INR of 2.5) Note: For patients treated with VKA drugs, such as warfarin, the [place] [employer]icians 2012 Guideline recommends [...] Chest 2012, 141:7S-47S Diogenes RESENDIZ et al. [facility] 2017, 70: 252-289 Performed By: #### CBCDIF, PT, CMP, MG1, PHOS #### [facility] [address] [place], [place] [address] COMP METABOLIC PANEL Collected: 10/16/2017 Status: F Source: [place] 11:30 PM [facility] REPOSITORY TYPE CODE TESTS [...] mg/dL Glucose High 138 Result Comment: The [place] Diabetes Association (ADA) provides guidance for cutoff [...] Standards of Medical Care in Diabetes 2016, [place] [employer]. Diabetes Care. 2016.39(Suppl 1). LAB [...] #### CBCDIF, PT, CMP, MG1, PHOS #### [place] [address] MAGNESIUM Collected: 10/16/2017 Status: F Source: [place] 11:30 PM [facility] REPOSITORY TYPE CODE TESTS RESULT OUT OF REFERENCE UNITS RANGE LAB MG 1.7-2.3 mg/dL High Magnesium 2.5 Performed By: #### CBCDIF, PT, CMP, MG1, PHOS #### [facility] [place] [address] PHOSPHORUS Collected: 10/16/2017 Status: F Source: [place] 11:30 PM [facility] REPOSITORY TYPE CODE TESTS RESULT OUT OF REFERENCE UNITS RANGE LAB PHOS 2.7-4.8 mg/dL High Phosphorus 4.9 Performed By: #### CBCDIF, PT, CMP, MG1, PHOS #### [facility] [address] [place] [address] FONDAPARINUX ASSAY Collected: 10/16/2017 Status: F Source: [place] 3:00 PM [facility] REPOSITORY TYPE CODE TESTS RESULT OUT [...] (body weight >100 kg) once daily, the bjud-cyioxn-zwtmpkey doses provide similar mean steady-state peaks and minimum plasma concentrations across all body weight categories. The mean peak steady-state plasma concentration is in the range of 1.20 to 1.26 mg/L. In these patients, the mean minimum steady-state plasma concentration is in the range of 0.46 to 0.62 mg/L. (Prescribing information for Arixtra from [employer], April 2010) Note: The fondaparinux assay is performed by an anti-Xa methodology and that comcomitant therapy with unfractionated or low molecular weight heparin could falsely elevate the fondaparinux levels. Performed By: #### FONDXA #### [facility] [address] [place] [address] CASE MANAGEM Observed: 10/16/2017 Status: COMPLETED Source: [place] 2:57 PM [facility] REPOSITORY HNO ID: [id number] Author: Radha Hope RN Service: Case Management [...] 16, 2017 TIME: 2:57 PM PAGER/CONTACT #: [phone] CBC Collected: 10/16/2017 Status: F Source: [place] 12:46 PM [facility] REPOSITORY TYPE CODE TESTS RESULT OUT [...] Absolute nRBC Performed By: #### CBC #### [facility] [address] [place] [id number] CONSULT PROG Observed: 10/16/2017 Status: COMPLETED Source: [place] 10:43 AM [facility] REPOSITORY HNO ID: [id number] Author: Dominique Rios Service: Hematology/Oncology Author Type: [...] 1246 10/16/17 0545 10/15/17 2310 10/15/17 1842 04/01/24 223510/13/17231410/13/17 1300 WBC 7.49 4.64 5.73 4.84 < [...] in this interval not displayed. Recent Labs 10/15/17230910/14/17223410/13/17231410/13/17 1342 10/13/17 1300 NA 134* 135* 137 [...] 0.4 0.5 1.2 -- 0.6 Recent Labs 10/15/17230910/14/17223410/13/17231410/13/17 1846 10/13/17 1300 09/29/17 1804 09/18/17 1236 [...] MD Fellow, Hematology and Medical Oncology Pager: [phone] [facility] STAFF PHYSICIAN NOTE OF PERSONAL INVOLVEMENT IN [...] with you. SIGNATURE: Dominique Rios DO PAGER: [phone] DATE of SERVICE: October 16, 2017 TIME of SERVICE: 7:15 PM PROCEDURE Observed: 10/16/2017 Status: COMPLETED Source: [place] 10:21 AM [facility] REPOSITORY [facility] ID: [id number] Author: Lisseth Claudio MD Service: Apheresis Author [...] Completed by Apheresis Nurse: Lou Juarez RN [facility] STAFF PHYSICIAN NOTE OF PERSONAL INVOLVEMENT IN [...] MD October 16, 2017 3:10 PM Pager: [phone] PROGRESS Observed: 10/16/2017 Status: COMPLETED Source: [place] 6:45 AM [facility] REPOSITORY HNO ID: [id number] Author: Stephane Austin Service: Critical Care Author Type: Physician Type: Progress Notes Filed: 10/16/2017 3:53 PM Note Text: MICU PROGRESS NOTE WITH COORD CARE Primary Service: [place] Team SERVICE DATE: 10/16/2017 SERVICE TIME: 6:46 [...] bilateral iliac stents and IVC endograft, 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, plasmapharesis q2 weeks, prednisone [...] 16, 2017 TIME: 6:46 AM PAGER/CONTACT #: [phone] [facility] STAFF PHYSICIAN NOTE OF PERSONAL INVOLVEMENT IN [...] bilateral iliac stents and IVC endograft, 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, plasmapharesis q2 weeks, prednisone [...] bilateral iliac stents and IVC endograft, 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, plasmapharesis q2 weeks, prednisone [...] Noted - Resolved Hospital APS (antiphospholipid syndrome) ([facility]) 11/29/2016 - Present Current Assessment AND Plan [...] minutes. SIGNATURE: Stephane Austin MD [facility] PAGER:[phone] DATE of SERVICE: October 16, 2017 TIME of SERVICE: 3:52 PM CBC Collected: 10/16/2017 Status: F Source: [place] 5:45 AM [facility] REPOSITORY TYPE CODE TESTS RESULT OUT [...] nRBC 0.04 Performed By: #### CBC #### [facility] [address] [place], [place] [address] PROTIME Collected: 10/15/2017 Status: F Source: [place] 11:10 PM [facility] REPOSITORY TYPE CODE TESTS RESULT OUT OF RANGE REFERENCE UNITS LAB PSEC 9.7-13.0 sec High PT Sec 14.0 LAB INR 0.9-1.3 High PT INR 1.4 Result Comment: Vitamin K Antagonist (VKA) Therapeutic Range: INR 2 to 3 (Target INR of 2.5) Note: For patients treated with VKA drugs, such as warfarin, the [place] [employer]icians 2012 Guideline recommends [...] Chest 2012, 141:7S-47S Diogenes RA, et al. [facility] 2017, 70: 252-289 Performed By: #### PT, CBCDIF, CMP, MG1, PHOS #### [facility] [address] [place], [place] [address] CBC AND DIFFERENTIAL Collected: 10/15/2017 Status: F Source: [place] 11:10 PM [facility] REPOSITORY TYPE CODE TESTS RESULT OUT [...] Abs Low Lymph 0.07 LAB AMONO % Alexander% 5.2 LAB AAMONO <0.87 k/uL Abs Alexander 0.30 LAB AEOS % Eosin% 0.0 LAB AAEOS <0.46 k/uL Abs Eosin <0.03 LAB ABASO % Baso% 0.0 LAB AABASO <0.11 k/uL Abs Baso <0.03 LAB AUNRBC 0 /100 WBC NRBCs High 0.5 LAB ABNRBC <0.01 k/uL High Absolute nRBC 0.03 LAB DTYP DTYPE Auto Diff Performed By: #### PT, CBCDIF, CMP, MG1, PHOS #### [facility] [address] [place], [place] [address] COMP METABOLIC PANEL Collected: 10/15/2017 Status: F Source: [place] 11:10 PM [facility] REPOSITORY TYPE CODE TESTS [...] mg/dL Glucose High 132 Result Comment: The [place] Diabetes Association (ADA) provides guidance for cutoff [...] Standards of Medical Care in Diabetes 2016, [place] [employer]. Diabetes Care. 2016.39(Suppl 1). LAB [...] #### PT, CBCDIF, CMP, MG1, PHOS #### [facility] [address] [place] [address] MAGNESIUM Collected: 10/15/2017 Status: F Source: [place] 11:10 PM [facility] REPOSITORY TYPE CODE TESTS RESULT OUT OF REFERENCE UNITS RANGE LAB MG 1.7-2.3 mg/dL High Magnesium 2.6 Performed By: #### PT, CBCDIF, CMP, MG1, PHOS #### [facility] [address] [place] [address] PHOSPHORUS Collected: 10/15/2017 Status: F Source: [place] 11:10 PM [facility] REPOSITORY TYPE CODE TESTS RESULT OUT OF REFERENCE UNITS RANGE LAB PHOS 2.7-4.8 mg/dL High Phosphorus 6.5 Performed By: #### PT, CBCDIF, CMP, MG1, PHOS #### [facility] [address] [place] [address] CBC Collected: 10/15/2017 Status: F Source: [place] 6:42 PM [facility] REPOSITORY TYPE CODE TESTS RESULT OUT [...] Absolute nRBC Performed By: #### CBC #### [facility] [address] [id number] PT MIXING STUDY Collected: 10/15/2017 Status: F Source: [place] 6:42 PM [facility] REPOSITORY TYPE CODE TESTS RESULT OUT [...] is unlikely. Performed By: #### PTMIX #### [facility] [address] [place], [place] [address] CONSULT PROG Observed: 10/15/2017 Status: COMPLETED Source: [place] 1:58 PM [facility] REPOSITORY HNO ID: [id number] Author: Dominique Rios Service: Hematology Author Type: [...] -- -- -- -- 6* AST 13 -- 17 -- -- -- -- 14 [...] MD Fellow, Hematology and Medical Oncology Pager: [phone] [facility] STAFF PHYSICIAN NOTE OF PERSONAL INVOLVEMENT IN [...] bedside. I discussed the case with Dr. Macias also. Her hemoglobin has been stable. Given [...] with questions. SIGNATURE: Dominique Rios DO PAGER: [phone] DATE of SERVICE: October 15, 2017 TIME of SERVICE: 2:08 PM URINALYSIS Collected: 10/15/2017 Status: F Source: [place] 12:23 PM [facility] [place] REPOSITORY TYPE CODE TESTS RESULT OUT OF RANGE REFERENCE UNITS LAB UCOL Yellow Color Yellow LAB [facility] Clear Clarity Abnormal Cloudy Alert LAB UGLUC Negative mg/dL Glucose, Urine Negative LAB UBIL Negative Bilirubin, Urine Negative LAB UK[facility] Negative Ketones, Urine Negative LAB [facility] 1.005-1.030 Specific [place], Ur 1.019 LAB UHGB Negative Abnormal Hemoglobin/Blood, [...] By: #### UA, UCRR, UUNR, UNAR #### [facility] [address] [place], [place] [address] CREATININE,URINE,RAN Collected: Status: F Source: [place] 10/15/2017 12:23 PM [facility] REPOSITORY TYPE CODE TESTS RESULT OUT OF RANGE REFERENCE UNITS LAB UCRR 20-300 mg/dL 71.1 Creatinine,U rine,Ran Performed By: #### UA, UCRR, UUNR, UNAR #### [facility] [address] [place], [place] [id number] UREA NITROGEN,UR,RAN Collected: 10/15/2017 Status: F Source: [place] 12:23 PM [facility] REPOSITORY TYPE CODE TESTS RESULT OUT OF RANGE REFERENCE UNITS LAB UUNR 140-1500 mg/dL Urea 630 Nitrogen,Ur, Ran Performed By: #### UA, UCRR, UUNR, UNAR #### [place] [address] SODIUM,URINE,RANDOM Collected: Status: F Source: [place] 10/15/2017 12:23 PM [facility] REPOSITORY TYPE CODE TESTS RESULT OUT OF RANGE REFERENCE UNITS LAB UNAR 14-216 mmol/L <20 Sodium,Urine ,Random Performed By: #### UA, UCRR, UUNR, UNAR #### [facility] [address] [place], [place] [address] CBC Collected: 10/15/2017 Status: F Source: [place] 12:23 PM [facility] REPOSITORY TYPE CODE TESTS RESULT OUT [...] Absolute nRBC Performed By: #### CBC #### [facility] [address] [place], [place] [address] PROGRESS Observed: 10/15/2017 Status: COMPLETED Source: [place] 10:39 AM [facility] [place] REPOSITORY HNO ID: [id number] Author: Hollis (Frida Oro Service: Critical Care Author Type: Resident Type: Progress Notes Filed: 10/15/2017 10:52 AM Note Text: [facility] MICU/CRITICAL CARE DAILY PROGRESS NOTE Please [...] bilateral iliac stents and IVC endograft, 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 Other: Cholecystectomy clips again noted. Glass Edger: MURTAZA Transcribe Date/Time: Oct 15 2017 11:54A Dictated by : STELLA COSME MD This examination was interpreted and the report reviewed and electronically signed by: STELLA COSME MD on Oct 15 2017 11:55AM EST [id number] PROGRESS Observed: 10/15/2017 Status: COMPLETED Source: [place] 8:00 AM [facility] REPOSITORY HNO ID: [id number] Author: Pola Macias Service: Critical Care Author Type: Physician Type: [...] showed no clot within the visualized veins Engineering [employer] 35 (remains overall stable at this level [...] hemorrhage Antiphopholipid syndrome: + lupus anticoagulant, + qkbq-[id number]-vchlkeclzjvn, and + anti-cardiolipin antibodies 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 SIGNATURE: Pola Macias MD [facility] PAGER:[phone] CBC Collected: 10/15/2017 Status: F Source: [place] 5:40 AM [facility] REPOSITORY TYPE CODE TESTS RESULT OUT [...] Absolute nRBC Performed By: #### CBC #### [facility] [address] [place], [place] [address] PROTIME Collected: 10/14/2017 Status: F Source: [place] 10:35 PM [facility] REPOSITORY TYPE CODE TESTS RESULT OUT OF RANGE REFERENCE UNITS LAB PSEC 9.7-13.0 sec High PT Sec 19.4 LAB INR 0.9-1.3 High PT INR 2.0 Result Comment: Vitamin K Antagonist (VKA) Therapeutic Range: INR 2 to 3 (Target INR of 2.5) Note: For patients treated with VKA drugs, such as warfarin, the [place] [employer] 2012 Guideline recommends [...] Chest 2012, 141:7S-47S Diogenes RA, et al. [facility] 2017, 70: 252-289 Performed By: #### PT, CBCDIF, CMP, MG1, PHOS #### [facility] [address] [place], [place] [address] CBC AND DIFFERENTIAL Collected: 10/14/2017 Status: F Source: [place] 10:35 PM [facility] REPOSITORY TYPE CODE TESTS [...] Abs Low Lymph 0.04 LAB AMONO % Alexander% 3.1 LAB AAMONO <0.87 k/uL Abs Alexander 0.13 LAB AEOS % Eosin% 0.0 LAB AAEOS <0.46 k/uL Abs Eosin <0.03 LAB ABASO % Baso% 0.0 LAB AABASO <0.11 k/uL Abs Baso <0.03 LAB AUNRBC 0 /100 WBC NRBCs High 1.2 LAB ABNRBC <0.01 k/uL High Absolute nRBC 0.05 LAB DTYP DTYPE Auto Diff Performed By: #### PT, CBCDIF, CMP, MG1, PHOS #### [facility] [address] [place], [place] [address] COMP METABOLIC PANEL Collected: 10/14/2017 Status: F Source: [place] 10:35 PM [facility] REPOSITORY TYPE CODE TESTS [...] mg/dL Glucose High 124 Result Comment: The [place] Diabetes Association (ADA) provides guidance for cutoff [...] Standards of Medical Care in Diabetes 2016, [place] [employer]. Diabetes Care. 2016.39(Suppl 1). LAB [...] #### PT, CBCDIF, CMP, MG1, PHOS #### [facility] [address] [place] [address] MAGNESIUM Collected: 10/14/2017 Status: F Source: [place] 10:35 PM [facility] REPOSITORY TYPE CODE TESTS RESULT OUT OF REFERENCE UNITS RANGE LAB MG 1.7-2.3 mg/dL Magnesium 2.2 Performed By: #### PT, CBCDIF, CMP, MG1, PHOS #### [facility] [address] [place] [address] PHOSPHORUS Collected: 10/14/2017 Status: F Source: [place] 10:35 PM [facility] REPOSITORY TYPE CODE TESTS RESULT OUT OF REFERENCE UNITS RANGE LAB PHOS 2.7-4.8 mg/dL High Phosphorus 6.9 Performed By: #### PT, CBCDIF, CMP, MG1, PHOS #### [facility] [address] [place] [id number] CBC Collected: 10/14/2017 Status: F Source: [place] 6:42 PM [facility] REPOSITORY TYPE CODE TESTS RESULT OUT [...] Absolute nRBC Performed By: #### CBC #### [facility] [address] [place], [place] [address] GASA + ALL Collected: 10/14/2017 Status: F Source: [place] FOR 1:33 PM [facility] RADIANCE USE ONLY REPOSITORY TYPE CODE [...] Art Administration Result Comment: 30% LAB ACBDTE [id number] Notify Date, Art LAB ACBTME [id number] Notify Time, Art Performed By: #### ALLBG #### [facility] [address] [place], [place] [address] CBC Collected: 10/14/2017 Status: F Source: [place] 1:27 PM [facility] [place] REPOSITORY TYPE CODE TESTS RESULT OUT OF [...] nRBC Performed By: #### CBC, AMINAH #### [facility] [address] [place], [place] [address] TROPONIN T Collected: 10/14/2017 Status: F Source: [place] 1:27 PM [facility] REPOSITORY TYPE CODE TESTS RESULT OUT OF REFERENCE UNITS RANGE LAB TROPT 0.000-0.029 ng/mL Troponin T 0.024 Performed By: #### CBC, AMINAH #### [facility] [address] [place], [place] [address] PROGRESS Observed: 10/14/2017 Status: COMPLETED Source: [place] 12:13 PM [facility] [place] REPOSITORY HNO ID: [id number] Author: Kishore Emerson Service: Critical Care Author [...] bilateral iliac stents and IVC endograft, 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, plasmapharesis q2 weeks, prednisone [...] 14, 2017 TIME: 12:13 PM PAGER/CONTACT #: [phone] NUTRITION Observed: 10/14/2017 Status: COMPLETED Source: [place] 10:33 AM [facility] REPOSITORY HNO ID: [id number] Author: Edel Guillen Service: NST-Nutrition Support Team [...] lb 15 oz) 10/18/2016 114.306 kg 44.64 [place] body weight 52.3 kg Dosing Weight: 101 kg Estimated kilocalorie needs: 6422-2263 kilocalories determined by 11-14 kcal/kg Estimated protein needs: 78-105 grams determined by 1.5-2.0 g/kg [place] weight Estimated fluid needs: per MD NUTRITION [...] Initial Assess/15 min 3 units SIGNATURE: Edel Guillen, RD, LD, [facility] PATIENT NAME: Paloma Cannon DATE: October 14, 2017 TIME: 10:34 AM PAGER: [phone] XR CHEST 1V FRONTAL Observed: 10/14/2017 Status: F Source: [facility] 9:16 AM [facility] REPOSITORY * * *Final Report* * * DATE OF EXAM: Oct 14 2017 9:16AM HALINA [id number] - XR CHEST 1V FRONTAL PORT / PROCEDURE REASON: ARDS (adult respiratory distress syndrome) ([facility]) * * * * Physician Interpretation * [...] pneumothorax. Cardiomediastinal silhouette: Stable cardiomediastinal silhouette. Other: Glass Edger: PSCB Transcribe Date/Time: Oct 14 2017 10:28A Dictated by : STELLA COSME MD This examination was interpreted and the report reviewed and electronically signed by: STELLA COSME MD on Oct 14 2017 10:29AM EST [id number] CONSULT PROG Observed: 10/14/2017 Status: COMPLETED Source: [place] 8:57 AM [facility] REPOSITORY HNO ID: [id number] Author: Dominique Rios Service: Hematology/Oncology Author Type: Physician Type: Consult Progress Note Filed: 10/14/2017 5:02 PM Note Text: ? [facility] DEPARTMENT OF HEMATOLOGIC ONCOLOGY AND BLOOD DISORDERS ? Hematology Consult Follow Up ? ? Patient name: Paloma Cannon : 1990 Date of Service: 10/14/2017 Supervising attending physician: Dr. Macias ? DIAGNOSIS: Antiphospholipid Antibody Syndrome ? ? [...] Lymph 1.00 - 4.00 k/uL 0.11 (L) Alexander% % 0.9 Abs Alexander <0.87 k/uL 0.11 Eosin% % 0.2 Abs [...] Rios. Hematology will follow. ? ? Juan Chritsopher MD Fellow, Hematology and Medical Oncology Pager: [phone] ? [facility] STAFF PHYSICIAN NOTE OF PERSONAL INVOLVEMENT IN [...] with questions. 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 SIGNATURE: Pola Macias MD [facility] PAGER:[phone] CONSULTATION Observed: 10/14/2017 Status: F Source: [place] 5:34 AM [facility] REPOSITORY [facility] Medical Records Department [address] [place] [address] Consultation 10/13/17 1113 MR#: [id number] Acct: [id number] Name: PALOMA CANNON Rep #: [id number] : 1990 27 From: Mitch Buchanan MD [...] medical history listed below, who presented to [facility] on 10/13/2017 secondary to acute shortness of [...] syndrome and was recently discharged from the [facility] following plasmapheresis. Patient reportedly has to receive her care at [facility] or [facility]. 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 There is no plasmapheresis available [facility]. ER is currently arranging for transportation [...] long-term issues. Patient was recently admitted at [facility] with a similar type presentation. Would avoid [...] team (10:30 AM to 11:30 AM) 10/14/17 0564 <Electronically signed by Mitch Buchanan MD> Date Mitch Buchanan MD Cosigner Signature (if applicable): Date CC: Peyton Rogers MD Signed CBC Collected: 10/14/2017 Status: F Source: [place] 4:19 AM [facility] REPOSITORY TYPE CODE TESTS RESULT OUT [...] nRBC Performed By: #### CBC, AMINAH #### [facility] [address] [place], [place] [address] TROPONIN T Collected: 10/14/2017 Status: F Source: [place] 4:19 AM [facility] REPOSITORY TYPE CODE TESTS RESULT OUT OF REFERENCE UNITS RANGE LAB TROPT 0.000-0.029 ng/mL Troponin T 0.028 Performed By: #### CBC, AMINAH #### [facility] [address] [place], [place] [address] GASA + ALL Collected: 10/14/2017 Status: F Source: [facility] 12:31 AM [facility] RADIANCE USE ONLY REPOSITORY TYPE CODE [...] Comment: 40% Performed By: #### ALLBG #### [facility] [address] [place], [place] [address] PROTIME Collected: 10/13/2017 Status: F Source: [place] 11:15 PM [facility] REPOSITORY TYPE CODE TESTS RESULT OUT OF RANGE REFERENCE UNITS LAB PSEC 9.7-13.0 sec High PT Sec 16.7 LAB INR 0.9-1.3 High PT INR 1.7 Result Comment: Vitamin K Antagonist (VKA) Therapeutic Range: INR 2 to 3 (Target INR of 2.5) Note: For patients treated with VKA drugs, such as warfarin, the [place] [employer]icians 2012 Guideline recommends [...] Chest 2012, 141:7S-47S Diogenes RA, et al. [facility] 2017, 70: 252-289 Performed By: #### PT, CMP, MG1, NTBNP, PHOS, CBCDIF #### [facility] [address] [place] [address] COMP METABOLIC PANEL Collected: 10/13/2017 Status: F Source: [place] 11:15 PM [facility] REPOSITORY TYPE CODE TESTS RESULT OUT [...] mg/dL Glucose High 120 Result Comment: The [place] Diabetes Association (ADA) provides guidance for cutoff [...] Standards of Medical Care in Diabetes 2016, [place] [employer]. Diabetes Care. 2016.39(Suppl 1). LAB [...] PT, CMP, MG1, NTBNP, PHOS, CBCDIF #### [facility] [address] [place] [address] MAGNESIUM Collected: 10/13/2017 Status: F Source: [place] 11:15 [facility] REPOSITORY TYPE CODE TESTS RESULT OUT OF REFERENCE UNITS RANGE LAB MG 1.7-2.3 mg/dL Magnesium 2.0 Performed By: #### PT, CMP, MG1, NTBNP, PHOS, CBCDIF #### [facility] [address] [place] [address] NT PRO BNP Collected: 10/13/2017 Status: F Source: [place] 11:15 [facility] REPOSITORY TYPE CODE TESTS RESULT OUT OF REFERENCE UNITS RANGE LAB PBNP <125 pg/mL High PRO B Natr 41844 Peptide Performed By: #### PT, CMP, MG1, NTBNP, PHOS, CBCDIF #### [facility] [address] [place] [address] PHOSPHORUS Collected: 10/13/2017 Status: F Source: [place] 11:15 PM [facility] REPOSITORY TYPE CODE TESTS RESULT OUT OF REFERENCE UNITS RANGE LAB PHOS 2.7-4.8 mg/dL High Phosphorus 5.6 Performed By: #### PT, CMP, MG1, NTBNP, PHOS, CBCDIF #### [facility] [address] [place], [place] [address] CBC AND DIFFERENTIAL Collected: 10/13/2017 Status: F Source: [place] 11:15 PM [facility] REPOSITORY TYPE CODE TESTS [...] Abs Low Lymph 0.11 LAB AMONO % Alexander% 0.9 LAB AAMONO <0.87 k/uL Abs Alexander 0.11 LAB AEOS % Eosin% 0.2 LAB AAEOS <0.46 k/uL Abs Eosin <0.03 LAB ABASO % Baso% 0.3 LAB AABASO <0.11 k/uL Abs Baso 0.03 LAB AUNRBC 0 /100 WBC NRBCs High 0.2 LAB ABNRBC <0.01 k/uL High Absolute nRBC 0.02 LAB DTYP DTYPE Auto Diff Performed By: #### PT, CMP, MG1, NTBNP, PHOS, CBCDIF #### [facility] [address] [place], [place] [address] TROPONIN T Collected: 10/13/2017 Status: F Source: [place] 9:00 PM [facility] REPOSITORY TYPE CODE TESTS RESULT OUT OF REFERENCE UNITS RANGE LAB TROPT 0.000-0.029 ng/mL High Troponin T 0.034 Result Comment: Called to and read back by: Bessy De Paz G61 10/13/17 21:58 SMoira Performed By: #### AMINAH #### [facility] [address] [place], [place] [address] URINALYSIS Collected: 10/13/2017 Status: F Source: [place] 6:46 PM [facility] REPOSITORY TYPE CODE TESTS RESULT OUT [...] Urine Negative LAB USPG 1.005-1.030 High Specific [place], Ur >1.030 LAB UHGB Negative Abnormal 3+ Alert Hemoglobin/Blood,U r LAB UPH 4.5-8.0 pH 6.0 LAB UPROT Negative mg/dL Abnormal Protein, Urine Alert >=300 LAB UUROB Normal Urobilinogen Normal LAB UNITR Negative Abnormal Nitrites Alert Positive LAB ULKEST Negative Abnormal Leukest 2+ Alert Performed By: #### UA, PT, CBC, UAMIC #### [facility] [address] [place], [place] [address] PROTIME Collected: 10/13/2017 Status: F Source: [place] 6:46 PM [facility] REPOSITORY TYPE CODE TESTS RESULT OUT OF RANGE REFERENCE UNITS LAB PSEC 9.7-13.0 sec High PT Sec 16.8 LAB INR 0.9-1.3 High PT INR 1.7 Result Comment: Vitamin K Antagonist (VKA) Therapeutic Range: INR 2 to 3 (Target INR of 2.5) Note: For patients treated with VKA drugs, such as warfarin, the [place] [employer]icians 2012 Guideline recommends [...] Chest 2012, 141:7S-47S Diogenes RA, et al. [facility] 2017, 70: 252-289 Performed By: #### UA, PT, CBC, UAMIC #### [facility] [address], [place] [address] CBC Collected: 10/13/2017 Status: F Source: [place] 6:46 PM [facility] REPOSITORY TYPE CODE TESTS RESULT OUT [...] By: #### UA, PT, CBC, UAMIC #### [facility] [address] [place], [place] [address] URINE MICROSCOPIC (FOR Collected: 10/13/2017 Status: F Source: [place] LAB USE ONLY) 6:46 PM [facility] REPOSITORY TYPE CODE TESTS RESULT OUT OF RANGE REFERENCE UNITS LAB UWBC 0-5 /HPF Abnormal Alert WBC 6-10 LAB URBC 0-3 /HPF Abnormal Alert RBC >25 LAB UCAST 0 /LPF Cast SEE COMMENT Result Comment: 0 LAB UEPI /HPF Epithelial SEE Cells COMMENT Result Comment: Squamous Epithelial Cells Few Non-Squamous Epithelial Cells Performed By: #### UA, PT, CBC, UAMIC #### [facility] [address] [place], [place] [address] GASA + ALL Collected: 10/13/2017 Status: F Source: [facility] 5:08 PM [facility] RADIANCE USE ONLY REPOSITORY TYPE CODE [...] Lactate 0.7 Performed By: #### ALLBG #### [facility] [address] [place], [place] [address] Observed: 10/13/2017 Status: F Source: [facility] PNEUMO AG DETECT 4:57 PM [facility] REPOSITORY Test Result - Negative for S.pneumoniae antigen. Presumptive negative for pneumococcal pneumonia, suggesting no current or recent pneumococcal infection. Infection due to S.pneumoniae cannot be ruled out since the antigen present in the sample may be below the detection limit of the test. Performed By: #### SPNAG #### [facility] [address] [place], [place] [address] LEGIONELLA URINE AG Collected: 10/13/2017 Status: F Source: [place] 4:57 PM [facility] REPOSITORY TYPE CODE TESTS RESULT OUT OF REFERENCE UNITS RANGE LAB LEGUAG Negative Legionella Urine Negative Ag Result Comment: Negative for L. pneumophila serogroup 1 antigen in urine, suggesting no recent or current infection. Legionnaires disease cannot be ruled out since other serogroups and species may also cause disease. Performed By: #### LEGUAG #### [facility] [address] [place], [place] [address] CONSULT Observed: 10/13/2017 Status: COMPLETED Source: [place] 4:39 PM [facility] REPOSITORY HNO ID: [id number] Author: Dominique Rios Service: Hematology/Oncology Author Type: Physician Type: Consults Filed: 10/13/2017 7:19 PM Note Text: [facility] Initial Consult Note PATIENT NAME: Paloma Cannon [facility] #: [id number] ATTENDING PHYSICIAN: Dr. Macias DATE OF SERVICE: 10/13/2017 Room/Bed: G061 006/G061-06 REASON FOR CONSULT: Antiphospholipid syndrome Consulting PHYSICIAN: Dr. Macias A/P: 27 y/o female with PMHx of [...] MD Fellow, Hematology and Medical Oncology Pager: [phone] HPI: This is a 27 y/o female [...] further management of alveolar hemorrhage. Presented to [facility] ED with hemoptysis/SOB - found to [...] (BACTRIM DS,SEPTRA DS) 1 tablet ORAL MO-WE- potassium chloride ER 40 mEq tab(s) (K-DUR, [...] Lymph 1.00 - 4.00 k/uL 0.31 (L) Alexander% % 1.7 Abs Alexander <0.87 k/uL 0.20 Eosin% % 2.6 Abs Eosin <0.46 k/uL 0.31 Baso% % 0.0 Abs Baso <0.11 k/uL 0.00 ANC(includeSEG+BAND) k/uL [place]% % Myelo% % 0.9 Anisocytosis Present Left [...] MD Fellow, Hematology and Medical Oncology Pager: [phone] [facility] STAFF PHYSICIAN NOTE OF PERSONAL INVOLVEMENT IN [...] also discussed her case with her outpatient public health outreach worker Dr. Kem Bishop and with the Apheresis [...] dear lady. SIGNATURE: Dominique Rios DO PAGER: [phone] DATE of SERVICE: October 13, 2017 TIME of SERVICE: 7:18 PM EMERGENCY DEPARTMENT Observed: 10/13/2017 Status: F Source: [place] SUMMARY 4:34 PM [facility] REPOSITORY [facility] Medical Records Department [address] [place] [address] Emergency Department Summary 10/13/17 1046 MR#: [id number] Acct: [id number] Name: PALOMA CANNON Rep #: [id number] : 1990 27 From: Lydia Harley MD [...] intubation and she was transferred to the [facility] as she required plasmapheresis. She is requesting [...] at this hospital. They are requesting the [facility]. I spoke with Dr. Mathieu Christie. The ICU is full and I am awaiting a call back from him. I will continue to stabilize and resuscitate here. I did have our cloud engagement partner see the patient in the emergency department for any other further input. Dr. Buchanan made some changes to the ventilator. Will await transport by helicopter service. Treatment Plan: As above Disposition: Transfer Impression: 1. Acute respiratory failure 2. Alveolar hemorrhage This note was generated with CompuMedation software. It may contain incorrect words, spelling, [...] your Primary Care Provider. Call [facility] ([phone]) or report to the closest Emergency Room. Call 911 if necessary. 10/13/17 1634 <Electronically signed by Lydia Harley MD> Date Lydia Harley MD Cosigner Signature (If Indicated): Date CC: Peyton Rogers MD C3 COMPLEMENT Collected: 10/13/2017 Status: F Source: [place] 4:30 PM [facility] REPOSITORY TYPE CODE TESTS RESULT OUT OF REFERENCE UNITS RANGE LAB C3COMP 86-166 mg/dL Low C3 Complement 67 Performed By: #### C3COMP, C4COMP, SMAB, DNAAB #### [facility] [address] [place], [place] [address] C4 COMPLEMENT Collected: 10/13/2017 Status: F Source: [place] 4:30 PM [facility] REPOSITORY TYPE CODE TESTS RESULT OUT OF REFERENCE UNITS RANGE LAB C4COMP 13-46 mg/dL Low C4 Complement 9 Performed By: #### C3COMP, C4COMP, SMAB, DNAAB #### [facility] [address] [place] [address] SM ANTIBODY Collected: 10/13/2017 Status: F Source: [place] 4:30 [facility] REPOSITORY TYPE CODE TESTS RESULT OUT OF REFERENCE UNITS RANGE LAB SMAB <1.0 AI Sm Antibody <0.2 Result Comment: NEGATIVE Negative: <1.0 AI Positive: >0.9 AI Performed By: #### C3COMP, C4COMP, SMAB, DNAAB #### [facility] [address] [place], [place] [address] DNA ANTIBODY Collected: 10/13/2017 Status: F Source: [place] 4:30 [facility] REPOSITORY TYPE CODE TESTS RESULT OUT OF REFERENCE UNITS RANGE LAB DNAAB1 <30 IU/mL DNA Antibody <12 Result Comment: Negative for ds DNA Antibodies Negative: <30 IU/mL Equivocal: 30-74 IU/mL Positive: >74 IU/mL Performed By: #### C3COMP, C4COMP, SMAB, DNAAB #### [facility] [address] [place], [place] [address] FUNGITELL B-D-GLUCAN Collected: 10/13/2017 Status: F Source: [place] 4:30 [facility] REPOSITORY TYPE CODE TESTS RESULT OUT OF REFERENCE UNITS RANGE LAB BDASAY Negative Fungitell Assay Negative Result Comment: (NOTE) INTERPRETIVE INFORMATION: (1,3)-jejy-N-djtgml (Fungitell) Less than 31 pg/mL ................... Negative 31-59 pg/mL .......................... Negative 60-79 pg/mL .......................... Indeterminate Greater than or equal to 80 pg/mL .... Positive The Fungitell test is indicated for presumptive diagnosis of fungal infection and should be used in conjunction with other diagnostic procedures. This test does not detect certain fungal species such as Cryptococcus, which produce very low levels of (1,3)-aiud-D-wtboak. This test will not detect the zygomycetes, such as Absidia, Mucor, and Rhizopus, which are not known to produce (1,3)-bilj-D-letgek. In addition, the yeast phase of Blastomyces dermatitidis produces little (1,3)-kmrd-R-biuaox and may not be detected by the assay. Performed by [facility], [address] [place] [address] www.[facility], Red Brasher MD, Lab. Director LAB BDCMNT pg/mL Fungitell Comments <31 Performed By: #### BDGLUC #### [facility] [address] [place] [address] [phone] PROCEDURE Observed: 10/13/2017 Status: COMPLETED Source: [place] 4:18 PM [facility] REPOSITORY HNO ID: [id number] Author: Dm Alvarado Service: Critical Care Author Type: Physician Type: Procedures Filed: 10/17/2017 11:09 AM Note Text: BEDSIDE PROCEDURE NOTE PROCEDURE DATE: October 13, 2017 PROCEDURE START TIME: 4:19 PM PRIMARY PROCEDURALIST: Gael Bear MD CROWN ATTACHER(S): None INFORMED CONSENT: Informed Consent obtained and [...] 13, 2017 TIME: 4:19 PM PAGER/CONTACT #: [phone] I was present for the entire procedure and supervised the fellow Dm Alvarado MD MPH MSc CASE MGT INIT Observed: 10/13/2017 Status: COMPLETED Source: [facility] 2:17 PM [facility] REPOSITORY HNO ID: [id number] Author: Radha (Rn) JEFF Hope Service: Case Management Author Type: Registered Nurse Type: Care Mgt Initial Assessment Filed: 10/13/2017 2:25 PM Note Text: CARE MANAGEMENT: ASSESSMENT AND DISCHARGE PLAN SERVICE DATE: 10/13/2017 SERVICE TIME: 2:17 PM PRIMARY CARE PHYSICIAN: PEYTON ROGERS MD ADMISSION STATUS: Inpatient Needs Prior to Discharge: To Be Determined MEDICAL: Patient/Shiftman Stated Goals: TBD Health Insurance: [employer] MEDICARE [facility] [employer] Issues Impacting Discharge Plan: Anti-phospholipid diffuse aveolar [...] sedated. Has the Patient Been in a Retirement Facility in the Past 30 days? TBD SOCIAL: Living Arrangement: TBD Lives With: TBD Financial Resources: TBD Primary Contact: Extended Emergency Contact Information Primary Emergency Contact: Morteza Cannon Address: [address] [place] [address] [address] [place] [id number] [place] [address] OF [facility] Mobile Relation: Spouse Secondary Emergency Contact: NelliMorgan Mobile Relation: Father Mother: Jane Aiken Supportive: [...] medical record. Pt transferred to MICU from [facility] ICU already intubated. SIGNATURE: Radha Hope RN PATIENT NAME: Paloma Cannon DATE: October 13, 2017 TIME: 2:17 PM PAGER/CONTACT #: [phone] GASV + ALL Collected: 10/13/2017 Status: F Source: [place] 1:42 PM [facility] REPOSITORY TYPE CODE TESTS RESULT OUT [...] Administration 100% Performed By: #### VALLBG #### [facility] [address] [place], [place] [address] XR ABDOMEN 1V SUPINE Observed: 10/13/2017 Status: F Source: [place] 1:31 PM [facility] REPOSITORY * * *Final Report* * * DATE OF EXAM: Oct 13 2017 1:31PM HALNIA [id number] - XR ABDOMEN 1V SUPINE / [...] the inferior aorta and bilateral iliac arteries. Glass Edger: PSCB Transcribe Date/Time: Oct 13 2017 1:59P Dictated by : LINDA DEE MD This examination was interpreted and the report reviewed and electronically signed by: YASMINE VINSON MD on Oct 13 2017 2:22PM EST [id number] XR CHEST 1V FRONTAL Observed: 10/13/2017 Status: F Source: [facility] 1:31 PM [facility] REPOSITORY * * *Final Report* * [...] Stable enlargement of the cardiomediastinal silhouette. Other: Glass Edger: MURTAZA Transcribe Date/Time: Oct 13 2017 4:13P Dictated by : GUILLAUME STARKEY MD This examination was interpreted and the report reviewed and electronically signed by: GUILLAUME STARKEY MD on Oct 13 2017 4:15PM EST [id number] PROGRESS Observed: 10/13/2017 Status: COMPLETED Source: [place] 1:28 PM [facility] REPOSITORY O ID: [id number] Author: Pola Macias Service: Critical Care Author Type: Physician Type: [...] 1.32 (at baseline), INR 2.1 (received warfarin .) Hb 10.1 WBC 17 ABG on 100% PEEP 14 cmH2O FiO2 pH 7.29, pCO2 44, pO2 79 More current lactate 1.2 Engineering Faculty 34 ASSESSMENT Acute hypoxemic respiratory failure with [...] hemorrhage Antiphopholipid syndrome: + lupus anticoagulant, + lgtr-g1-asntbmrxsdre, and + anti-cardiolipin antibodies 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 SIGNATURE: Pola Macias MD [facility] PAGER:[phone] Observed: 10/13/2017 Status: F Source: [place] BLOOD CULTURE 1:05 PM [facility] REPOSITORY Culture Result - No growth 5 days Performed By: #### BLCUL #### [facility] [address] [place], [place] [address] URINALYSIS WITH Collected: 10/13/2017 Status: F Source: [facility] 1:00 [facility] REPOSITORY TYPE CODE TESTS RESULT OUT OF RANGE REFERENCE UNITS LAB UCOL Yellow Color Abnormal Lisseth Alert LAB [facility] Clear Clarity Abnormal Cloudy Alert LAB UGLUC Negative mg/dL Glucose, Urine Negative LAB UBIL Negative Bilirubin, Urine Negative LAB UKET Negative Ketones, Urine Negative LAB [facility] 1.005-1.030 Specific [place], Ur 1.024 LAB UHGB Negative Abnormal Hemoglobin/Blood, [...] Epithelial Cells Performed By: #### UAWMIC #### [facility] [address] [place] [address] FIBRINOGEN Collected: 10/13/2017 Status: F Source: [place] 1:00 [facility] REPOSITORY TYPE CODE TESTS RESULT OUT OF REFERENCE UNITS RANGE LAB FIBCT 200-400 mg/dL Fibrinogen 283 Performed By: #### FIBCT, PT, PTT, LACT, CMP, MG1, PHOS, CBCDIF #### [place] [id number] [place], [place] [address] PROTIME Collected: 10/13/2017 Status: F Source: [place] 1:00 PM [facility] REPOSITORY TYPE CODE TESTS RESULT OUT OF RANGE REFERENCE UNITS LAB PSEC 9.7-13.0 sec High PT Sec 19.8 LAB INR 0.9-1.3 High PT INR 2.0 Result Comment: Vitamin K Antagonist (VKA) Therapeutic Range: INR 2 to 3 (Target INR of 2.5) Note: For patients treated with VKA drugs, such as warfarin, the [place] [employer]icians 2012 Guideline recommends [...] Chest 2012, 141:7S-47S Diogenes RA, et al. [facility] 2017, 70: 252-289 Performed By: #### FIBCT, PT, PTT, LACT, CMP, MG1, PHOS, CBCDIF #### [facility] [address] [place], [place] [id number] APTT Collected: 10/13/2017 Status: F Source: [place] 1:00 [facility] REPOSITORY TYPE CODE TESTS RESULT [...] laboratory APTT reagent in use throughout the [facility]. Performed By: #### FIBCT, PT, PTT, LACT, CMP, MG1, PHOS, CBCDIF #### [facility] [address] [place], [place] [address] LACTATE Collected: 10/13/2017 Status: F Source: [place] 1:00 [facility] REPOSITORY TYPE CODE TESTS RESULT OUT OF REFERENCE UNITS RANGE LAB LACT 0.5-2.2 mmol/L Lactate 1.5 Performed By: #### FIBCT, PT, PTT, LACT, CMP, MG1, PHOS, CBCDIF #### [facility] [address] [place], [place] [address] COMP METABOLIC PANEL Collected: 10/13/2017 Status: F Source: [place] 1:00 PM [facility] REPOSITORY TYPE CODE TESTS [...] mg/dL Low Glucose 48 Result Comment: The [place] Diabetes Association (ADA) provides guidance for cutoff [...] Standards of Medical Care in Diabetes 2016, [place] Diabetes Association. Diabetes Care. 2016.39(Suppl 1). Called to and read back by: Dieter [id number] 10/13/17 1444 [facility] BUN 7-21 mg/dL [...] PTT, LACT, CMP, MG1, PHOS, CBCDIF #### [place] [address] MAGNESIUM Collected: 10/13/2017 Status: F Source: [place] 1:00 [facility] REPOSITORY TYPE CODE TESTS RESULT OUT OF REFERENCE UNITS RANGE LAB MG 1.7-2.3 mg/dL Magnesium 1.9 Performed By: #### FIBCT, PT, PTT, LACT, CMP, MG1, PHOS, CBCDIF #### [place] [id number] [place] [address] PHOSPHORUS Collected: 10/13/2017 Status: F Source: [place] 1:00 [facility] REPOSITORY TYPE CODE TESTS RESULT OUT OF REFERENCE UNITS RANGE LAB PHOS 2.7-4.8 mg/dL Phosphorus 4.2 Performed By: #### FIBCT, PT, PTT, LACT, CMP, MG1, PHOS, CBCDIF #### [place] [address] CBC AND DIFFERENTIAL Collected: 10/13/2017 Status: F Source: [place] 1:00 [facility] REPOSITORY TYPE CODE TESTS RESULT [...] Abs Lymph 0.31 Low LAB AMONO % Alexander% 1.7 LAB AAMONO <0.87 k/uL Abs [place] 0.20 LAB AEOS % Eosin% 2.6 LAB [...] PTT, LACT, CMP, MG1, PHOS, CBCDIF #### [facility] [address] [place] [id number] TYPE AND SCREEN Collected: 10/13/2017 Status: F Source: [place] 1:00 PM [facility] REPOSITORY TYPE CODE TESTS RESULT OUT OF REFERENCE UNITS RANGE LAB %ABR B ABO/RH(D) POSITIVE LAB % Antibody POS Screen Performed By: #### TSCR #### [facility] [address] [place], [place] [address] STAPH AUREUS PCR Collected: 10/13/2017 Status: F Source: [place] 1:00 PM [facility] [place] REPOSITORY TYPE CODE TESTS RESULT OUT OF REFERENCE UNITS RANGE LAB SASRC Nasal S aureus Spec Source LAB MRSRES Negative for MRSA MRSA by PCR. PCR LAB SARES Negative for Staph Staphylococcus aureus PCR aureus by PCR. Performed By: #### SAPCR #### [facility] [address] [place], [place] [address] PROGRESS Observed: 10/13/2017 Status: COMPLETED Source: [place] 12:56 PM [facility] REPOSITORY HNO ID: [id number] Author: Domingo Cobb Service: (none) Author Type: Nurse Practitioner Type: Progress Notes Filed: 10/13/2017 1:16 PM Note Text: Critical Care Transport Note Patient Name: Paloma Cannon Service Date: October 13, 2017 Referring Facility: [facility] Accepting Facility: [place] [address] SUBJECTIVE/CHIEF COMPLAINT: Shortness of breath REASON FOR [...] on coumadin, HTN, HIT. She presented to [place] on 10/13 for evaluation of shortness of breath. Patient received plasmapheresis a few weeks ago and was supposed to have another treatment on 10/09 but missed her appointment. Today patient developed cough which turned in to inability to catch her breath. Patient was brought to [place] ER where she was tripoding in respiratory [...] managing the patient requested transfer to the [facility] for tertiary and/or quaternary services unavailable at the referring facility. The physician managing the patient requested the [facility] Critical Care Transport Team transport and [...] start vancomycin infusion - [facility] The transport was completed without significant incident or change in the patient's status . The patient was transported to the the [facility] by [facility] (Helicopter) for tertiary and/or quaternary evaluation and management of her Critical Medical condition(s). Upon arrival to the receiving facility, a tzsf-yf-htob report was given to bedside staff in [...] of suddenly developing. SIGNATURE: Domingo Cobb, MSN NIGHT PATROL INSPECTOR.CYTOTECHNOLOGIST SUPERVISOR Acute Care Nurse Practitioner [facility] Critical Care Transport Team CONSULT PROG Observed: 10/13/2017 Status: COMPLETED Source: [place] 12:54 PM [facility] REPOSITORY HNO ID: [id number] Author: Lou Joya (Pharmacist) Service: Pharmacy Author [...] please contact Lou Joya PharmD at pager [phone]. Age: [age] year old Allergies: ALLERGIES Allergen [...] JOYA PHARMACIST Observed: 10/13/2017 Status: F Source: [place] BLOOD CULTURE 12:40 PM [facility] REPOSITORY Culture Result - No growth 5 days Performed By: #### BLCUL #### [facility] [address] [place] [address] HISTORY PHYSICAL Observed: 10/13/2017 Status: COMPLETED Source: [place] 11:48 AM [facility] REPOSITORY HNO ID: [id number] Author: Hollis Oro Service: Critical Care Author Type: Resident Type: HANDP Filed: 10/13/2017 1:23 PM Note Text: [facility] MICU/CRITICAL CARE HISTORY AND PHYSICAL EXAMINATION NOTE SERVICE DATE: 10/13/2017 SERVICE TIME: 1:00 pm ASSESSMENT AND PLAN: Patient Summary: 27 y/o female with 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 Presented to [facility] ED with hemoptysis/SOB - found to [...] 13, 2017 TIME: 11:48 AM PAGER/CONTACT #: [phone] BLOOD GASES BY CPS Collected: 10/13/2017 Status: F Source: [place] 10:56 AM [facility] REPOSITORY TYPE CODE TESTS RESULT OUT [...] ISTAT 94 Performed By: #### L9000.0800 #### [facility] Point of Care [address] [place] [address] Observed: 10/13/2017 Status: F Source: [place] CULTURE, SPUTUM 10:48 AM [facility] REPOSITORY Gram Stain Acceptable Specimen? Yes (<25 Epithelial cells per/lpf) Gram Stain 1+ White Blood Cells 1+ Epithelial cells Rare Gram positive cocci Resp. Culture Mixed normal respiratory zoila. No Haemophilus, Streptococcus pneumoniae, beta-hemolytic Streptococcus or Staphylococcus aureus isolated. Performed By: #### M100.0800 #### [facility] [address] [place], [address] URINALYSIS, COMPLETE Collected: 10/13/2017 Status: F Source: [place] 10:30 AM [facility] REPOSITORY Order Comment: How was Urine [...] URINE SEEN Performed By: #### L400.0001 #### [facility] [address] [place], [address] Observed: 10/13/2017 Status: F Source: [place] CULTURE, URINE 10:30 AM [facility] REPOSITORY Urine Culture ORGANISM 1: Enterococcus faecalis [place] Count <1000 Enterococcus faecalis: REACTION Ampicillin $ <=2 S Benzylpenicillin NF 2 S Ciprofloxacin $ 4 R Gentamicin SYN-R R Levofloxacin $ >=8 R Linezolid $$$$ 2 S Nitrofurantoin $ <=16 S Streptomycin $ SYN-R R Tetracycline NF >=16 R Vancomycin $ 1 S (NF) indicates non-formulary drug at [facility]. Approval by Infectious Disease Specialist required before non-formulary drugs may be ordered and/or dispensed. * CLSI guidelines does not recommend testing of cephalosporins. This interpretation is deduced from Beta-lactam/penicillin results. Performed By: #### M100.0650 #### [facility] [address] [place], [address] BLOOD GASES BY [facility] Collected: 10/13/2017 Status: F Source: [place] 10:28 AM [facility] REPOSITORY TYPE CODE TESTS RESULT OUT [...] ISTAT 85 Performed By: #### L9000.0800 #### [facility] Point of Care [address] [place] [address] Observed: 10/13/2017 Status: F Source: [place] CULTURE, BLOOD (WB) 10:22 AM [facility] REPOSITORY No growth in 5 days. Performed By: #### M200.1000 #### [facility] [address] [place], [address] Observed: 10/13/2017 Status: F Source: [place] CULTURE, BLOOD (WB) 10:15 AM [facility] REPOSITORY No growth in 5 days. Performed By: #### M200.1000 #### [facility] [address] [place], [address] CHEST 1 VIEW Observed: 10/13/2017 Status: F Source: [place] (PORTABLE) 9:59 AM [facility] REPOSITORY [facility] Services [address] [place] [address] Chest 1 View (Portable) MR#: [id number] Acct: [id number] Name: PALOMA CANNON Rep #: [id number] : 1990 F 27 From: Reinaldo Kam MD PCP: Peyton Rogers MD Status: REG ER Study: Chest 1 View (Portable) Date of Exam: 10/13/17 Exam# [id number] Ordering Dr: Lydia Harley MD STUDY: X-RAY [...] Reinaldo Kam MD at 10:24 EDT Tel [phone], Service support , CC: Peyton Rogers MD; Lydia Harley MD Glass Edger: Signed PROTHROMBIN TIME W/INR Collected: 10/13/2017 Status: F Source: [place] 9:35 AM [facility] REPOSITORY TYPE CODE TESTS RESULT OUT OF RANGE REFERENCE UNITS LAB L300.4150 11.7-14.9 SECONDS High PROTIME 23.7 LAB L300.4200 Normal INR 2.1 Performed By: #### L300.3900, L300.4310 #### [facility] [address] [place], [place], [address] PARTIAL THROMBOPLAST Collected: 10/13/2017 Status: F Source: [place] TIME 9:35 AM [facility] REPOSITORY TYPE CODE TESTS RESULT OUT OF RANGE REFERENCE UNITS LAB L300.4310 24.1-36.2 Seconds Normal PTT 34.9 Performed By: #### L300.3900, L300.4310 #### [facility] [address] [place], [place], [address] COMPREHENSIVE METABOLIC Collected: 10/13/2017 Status: F Source: [place] PROFIL 9:35 AM [facility] REPOSITORY Order Comment: 'TROP' Serial specimen [...] 18 Performed By: #### L500.4050, L501.4010 #### [facility] [address] [facility] [address] [place], [place], [address] TROPONIN-I Collected: 10/13/2017 Status: F Source: [place] 9:35 AM [facility] REPOSITORY Order Comment: 'TROP' Serial specimen #1, #2, #3, or #4: 1 TYPE CODE TESTS RESULT OUT OF RANGE REFERENCE UNITS LAB L501.4010 <0.06 ng/mL Normal 0.06 TROPONIN-I Result Comment: TROPONIN-I EXPECTED VALUES <0.05 NEGATIVE 0.06 - 0.59 AT RISK OF [place] > OR = 0.60 SUGGEST [place] Performed By: #### L500.4050, L501.4010 #### [facility] [address] [place], [address] CBC W/DIFF, AUTOMATED Collected: 10/13/2017 Status: C Source: [place] 9:35 AM [facility] REPOSITORY TYPE CODE TESTS RESULT OUT [...] 2+ Performed By: #### L100.0100, L100.4425 #### [facility] [address] [place], [address] NRBC PANEL Collected: 10/13/2017 Status: F Source: [place] 9:35 AM [facility] REPOSITORY TYPE CODE TESTS RESULT OUT OF RANGE REFERENCE UNITS LAB L100.4450 0-5 % Normal NRBC, FLAGGED 0.24 LAB L100.4455 0-5 10 3/uL Normal NRBC # 1.40 Performed By: #### L100.0100, L100.4425 #### [facility] [address] [place], [address] LACTIC ACID Collected: 10/13/2017 Status: F Source: [place] 9:35 AM [facility] REPOSITORY Order Comment: Yes/No query for [...] Yinka Nava Performed By: #### L503.6005 #### [facility] [address] [place], [place], [address] ,SERUM,HCG QUALI. Collected: Status: F Source: [place] 10/13/2017 9:35 AM [facility] REPOSITORY TYPE CODE TESTS RESULT OUT OF REFERENCE UNITS RANGE LAB L700.7000 0-9 Nonpreg Negative Normal HCGSQUAL NEGATIVE LAB L700.6700 =>Qualitative mIU/mL Normal HCG Qual 2 triggr Performed By: #### L700.6800 #### [facility] [address] [place], [address] PROTHROMBIN TIME W/INR Collected: 10/13/2017 Status: F Source: [place] 8:00 AM [facility] REPOSITORY Order Comment: MEDOUT/PORTDRAW TYPE CODE TESTS RESULT OUT OF RANGE REFERENCE UNITS LAB L300.4150 11.7-14.9 SECONDS High PROTIME 22.8 LAB L300.4200 Normal INR 2.0 Performed By: #### L300.3900 #### [facility] [address] [place], [address] Observed: 10/13/2017 Status: F Source: [place] RESPIRATORY CULT/STAIN 12:36 AM [facility] REPOSITORY Smear Result - Rare Mixed oral and respiratory zoila Few Polymorphonuclear leukocytes Rare Epithelial cells Culture Result - Rare Normal respiratory zoila present Performed By: #### RCULST #### [facility] [address] [place], [place] [address] CNCRITCR Observed: 10/13/2017 Status: COMPLETED Source: [place] 12:00 AM [facility] REPOSITORY Critical Care Transport (CCT) PALOMA CANNON ([id number]) 1990 F PTR Date Time Provider Department 10/13/17 DOMINGO COBB (ELLIOTT) CCT During your visit today, we recorded the following information about you: Domingo Cobb, TIEN NIGHT PATROL INSPECTOR.ELLIOTT 10/13/2017 1:16 PM Signed Critical Care Transport Note Patient Name: Paloma Cannon Service Date: October 13, 2017 Referring Facility: [facility] ER Accepting Facility: [place] [address] SUBJECTIVE/CHIEF COMPLAINT: Shortness of breath REASON FOR [...] on coumadin, HTN, HIT. She presented to [place] on 10/13 for evaluation of shortness of breath. Patient received plasmapheresis a few weeks ago and was supposed to have another treatment on 10/09 but missed her appointment. Today patient developed cough which turned in to inability to catch her breath. Patient was brought to [place] ER where she was tripoding in respiratory [...] managing the patient requested transfer to the [facility] for tertiary and/or quaternary services unavailable at the referring facility. The physician managing the patient requested the [facility] Critical Care Transport Team transport and [...] start vancomycin infusion - [facility] The transport was completed without significant incident or change in the patient's status . The patient was transported to the the [facility] by [facility]otor (Helicopter) for tertiary and/or quaternary evaluation and management of her Critical Medical condition(s). Upon arrival to the receiving facility, a codk-lf-ecyx report was given to bedside staff in [...] of suddenly developing. SIGNATURE: Domingo Cobb, MSN NIGHT PATROL INSPECTOR.CYTOTECHNOLOGIST SUPERVISOR Acute Care Nurse Practitioner [facility] Critical Care Transport Team Allergies As [...] cardiac enzymes Date Reviewed: 10/05/2017 Reviewed by: oJan (Jeff) JEFF Gan - Fully Assessed Reason for [...] 10/09/2017 Status: F Source: [place] 8:15 AM [facility] REPOSITORY Order Comment: MEDOUT/PORT DRAW TYPE CODE TESTS RESULT OUT OF RANGE REFERENCE UNITS LAB L300.4150 11.7-14.9 SECONDS High PROTIME 24.1 LAB L300.4200 Normal INR 2.2 Performed By: #### L300.3900 #### [facility] [address] [place], [address] PROTHROMBIN TIME W/INR Collected: 10/06/2017 Status: F Source: [place] 8:00 AM [facility] REPOSITORY Order Comment: Comments: FAX TO MAGDALENA LEWIS CNP [phone] TYPE CODE TESTS RESULT OUT OF RANGE REFERENCE UNITS LAB L300.4150 11.7-14.9 SECONDS High PROTIME 15.2 LAB L300.4200 Normal INR 1.2 Performed By: #### L300.3900 #### [facility] [address] [place], [address] PLAN OF CARE Observed: 10/05/2017 Status: COMPLETED Source: [place] 4:40 PM [facility] REPOSITORY O ID: [id number] Author: Aleta SanchezCarolina Center For Behavioral HealthDevonet Mandujano (Pharmacist) Service: Pharmacy Author Type: Pharmacist [...] Pharmacist October 05, 2017 4:40 PM Pager: [phone] 10/05/2017 4:40 PM Medication List START taking [...] These medications were sent to [facility] [address] [place] [address] [address] - [phone] [place] [address] - gabapentin 100 mg capsule Information about where to get these medications is not yet available ! Ask your nurse or doctor about these medications - COMPOUNDED PRESCRIPTION CNDS Observed: 10/05/2017 Status: COMPLETED Source: [place] 4:31 PM [facility] REPOSITORY [facility] ID: [id number] Author: Sanchez Quiros MD Service: Hospital Medicine [...] HTN (hypertension) Active Problems: APS (antiphospholipid syndrome) ([facility]) CKD (chronic kidney disease) stage 3, GFR 30-59 ml/min (HFpEF) heart failure with preserved ejection fraction (HCC) History of HIT (heparin-induced thrombocytopenia) ([facility]) Peripheral neuropathy Obesity, Class II, BMI 35-39.9 E66.9 Resolved Problems: Hemoptysis Dysuria OPERATIONS DURING HOSPITALIZATION: None PROCEDURES DURING HOSPITALIZATION: EKG HOSPITAL COURSE: Patient is a 27 year old female with a PMHx of anti-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 endograft, 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, plasmapharesis q2 weeks, prednisone [...] Provider Department Center 10/16/2017 11:00 AM Akhil REEVES [facility] 10/16/2017 12:30 PM APHERESIS DAREK MAIN [facility] [place] 10/30/2017 12:30 PM [facility]HERESIS DAREK MAIN [facility] [place] 11/13/2017 12:00 PM APHERESIS DAREK MAIN [facility] [place] 11/24/2017 9:00 AM Peyton Rogers INTMWS [facility] 11/27/2017 12:00 PM APHERESIS DAREK MAIN [facility] [place] 12/05/2017 8:15 AM Malaika (Pt) Bdu PTWS [facility] 12/11/2017 12:00 PM APHERESIS DAREK MAIN [facility] [place] 12/11/2017 12:20 PM XR CHEST MAIN A21 RADMN RADIO A BLDG 12/11/2017 1:25 PM Guillaume Parambil PULMMN PULM A/E/R/G 12/25/2017 12:00 PM APHERESIS [...] 05, 2017 TIME: 4:31 PM PAGER/CONTACT #: [phone] CASE MANAGEM Observed: 10/05/2017 Status: COMPLETED Source: [place] 4:28 PM [facility] REPOSITORY O ID: [id number] Author: Candie SanchezRn) JEFF Williamson Service: Care [...] during this admission? No HANDOFF COMMUNICATION: Specialty Ground Layer: Eugenia Ly Primary Care Physician: PEYTON ROGERS MD TRANSPORTATION ARRANGEMENTS: Car Family ADDITIONAL CONTACT RESOURCES: N/A Reviewed discharge instructions, patient discharged home with no skilled home care needs at this time. Per Mari @ [phone] [employer] home going oxygen to be delivered at the bedside today. Discharge instructions by nursing staff. Family to provide transport. SIGNATURE: Candie Williamson RN PATIENT NAME: Paloma Cannon DATE: October 05, 2017 TIME: 4:28 PM PAGER/CONTACT #: [phone] NUTRITION Observed: 10/05/2017 Status: COMPLETED Source: [place] 2:58 PM [facility] REPOSITORY [facility] ID: [id number] Author: Janel Hollingsworth (Diet-T) Basic Service: Nutrition Therapy Author Type: Protective Signal Installer Helper Type: Nutrition Filed: 10/05/2017 3:00 PM [...] October 05, 2017 TIME: 2:58 PM PAGER: [phone] CONSULT PROG Observed: 10/05/2017 Status: COMPLETED Source: [place] 2:07 PM [facility] [place] REPOSITORY HNO ID: [id number] Author: Paulette Gooden (Elliott) Davonte Service: Vascular [...] AND HS sodium chloride 0.65 % 2 Atlantic (AYR, OCEAN) 2 Atlantic EACH NOSTRIL PRN cyclophosphamide 150 mg cap(s) [...] 05, 2017 TIME: 1:09 PM PAGER/CONTACT #: [phone] . CASE MANAGEM Observed: 10/05/2017 Status: COMPLETED Source: [place] 11:33 AM [facility] REPOSITORY [facility] ID: [id number] Author: Cherrie Loaiza (Asst) Service: Care Management Author Type: Resource Center Drywall Sander Type: Care Mgt Progress Note Filed: 10/05/2017 11:34 AM Note Text: CARE MANAGEMENT PROGRESS NOTE SERVICE DATE: 10/05/2017 SERVICE TIME: 11:18 LOS: 6 days IM letter given to patient on 10/05/17. SIGNATURE: Asst Xiomara PATIENT NAME: Paloma Cannon DATE: October 05, 2017 TIME: 11:33 AM PAGER/CONTACT #: [phone] CBC Collected: 10/05/2017 Status: F Source: [place] 5:04 AM [facility] REPOSITORY TYPE CODE TESTS RESULT OUT [...] By: #### CBC, PT, BMP, PHOS #### [facility] [address] [place], [place] [address] PROTIME Collected: 10/05/2017 Status: F Source: [place] 5:04 AM [facility] REPOSITORY TYPE CODE TESTS RESULT OUT OF RANGE REFERENCE UNITS LAB PSEC 9.7-13.0 sec PT Sec 11.2 LAB INR 0.9-1.3 PT INR 1.1 Result Comment: Vitamin K Antagonist (VKA) Therapeutic Range: INR 2 to 3 (Target INR of 2.5) Note: For patients treated with VKA drugs, such as warfarin, the [place] [employer]icians 2012 Guideline recommends [...] Chest 2012, 141:7S-47S Diogenes RA, et al. [facility] 2017, 70: 252-289 Performed By: #### CBC, PT, BMP, PHOS #### [facility] [address] [place], [place] [address] BASIC METABOLIC PANL Collected: 10/05/2017 Status: F Source: [place] 5:04 AM [facility] REPOSITORY TYPE CODE TESTS RESULT OUT OF REFERENCE UNITS RANGE LAB GLU 74-99 mg/dL Glucose 80 Result Comment: The [place] Diabetes Association (ADA) provides guidance for cutoff [...] Standards of Medical Care in Diabetes 2016, [place] [employer]. Diabetes Care. 2016.39(Suppl 1). LAB [...] By: #### CBC, PT, BMP, PHOS #### [facility] [address] [place], [place] [address] PHOSPHORUS Collected: 10/05/2017 Status: F Source: [place] 5:04 AM [facility] REPOSITORY TYPE CODE TESTS RESULT OUT OF REFERENCE UNITS RANGE LAB PHOS 2.7-4.8 mg/dL Phosphorus 4.1 Performed By: #### CBC, PT, BMP, PHOS #### [facility] [address] [place], [place] [address] CONSULT PROG Observed: 10/04/2017 Status: COMPLETED Source: [place] 1:09 PM [facility] [place] [facility] REPOSITORY HNO ID: [id number] Author: Paulette Gooden (Elliott) Davonte Service: Vascular [...] AND HS sodium chloride 0.65 % 2 Atlantic (AYR, OCEAN) 2 Atlantic EACH NOSTRIL PRN cyclophosphamide 150 mg cap(s) [...] daily w/HEATHER Wedge ordered SIGNATURE: Paulette Naranjo APRN.CYTOTECHNOLOGIST SUPERVISOR PATIENT NAME: Paloma Cannon DATE: October 04, 2017 TIME: 1:09 PM PAGER/CONTACT #: [phone] . PROGRESS Observed: 10/04/2017 Status: COMPLETED Source: [place] 8:01 AM [facility] REPOSITORY O ID: [id number] Author: Ameena Lim MD Service: Hospital Medicine Author Type: Physician Type: Progress Notes Filed: 10/04/2017 4:21 PM Note Text: DEPARTMENT OF HOSPITAL MEDICINE PROGRESS NOTE SERVICE DATE: 10/04/2017 SERVICE TIME: 8:01 AM Hospital Medicine/Primary Attending: Ameena Lim MD NIGHT AND WEEKEND COVERAGE: Days: [phone], please page me for patient issues. Nights: [phone], please page Team GIM1a; overnight coverage pager [phone] Subjective INTERVAL HPI: No acute events overnight. 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 [facility] STAFF PHYSICIAN NOTE OF PERSONAL INVOLVEMENT IN [...] found to be positive for lupus anticoagulant, zwsc-i8-xuuyadfjzpfc, and anti-cardiolipin antibodies usually gets plasmapheresis q2 [...] NURSING PROG Observed: 10/04/2017 Status: COMPLETED Source: [place] 4:20 AM [facility] REPOSITORY [facility] ID: [id number] Author: Clayton SanchezRn) JEFF Krishnamurthy Service: Nursing [...] intervention(s) were [place]: [place] [phone]. After the initiated interventions, the following observation(s) were made: nothing further noted. Will continue to observe and check with patient. This note was completed by: Clayton Krishnamurthy RN CBC Collected: 10/04/2017 Status: F Source: [place] 3:36 AM [facility] REPOSITORY TYPE CODE TESTS RESULT OUT [...] By: #### CBC, PT, BMP, PHOS #### [facility] [address] [place], [place] [address] PROTIME Collected: 10/04/2017 Status: F Source: [place] 3:36 AM [facility] REPOSITORY TYPE CODE TESTS RESULT OUT OF RANGE REFERENCE UNITS LAB PSEC 9.7-13.0 sec PT Sec 11.0 LAB INR 0.9-1.3 PT INR 1.1 Result Comment: Vitamin K Antagonist (VKA) Therapeutic Range: INR 2 to 3 (Target INR of 2.5) Note: For patients treated with VKA drugs, such as warfarin, the [place] [employer] Chest [employer]icians 2012 Guideline recommends [...] Chest 2012, 141:7S-47S Diogenes RA, et al. [facility] 2017, 70: 252-289 Performed By: #### CBC, PT, BMP, PHOS #### [facility] [address] [place], [place] [address] BASIC METABOLIC PANL Collected: 10/04/2017 Status: F Source: [place] 3:36 AM [facility] REPOSITORY TYPE CODE TESTS RESULT OUT OF REFERENCE UNITS RANGE LAB GLU 74-99 mg/dL High Glucose 118 Result Comment: The [place] Diabetes Association (ADA) provides guidance for cutoff [...] Standards of Medical Care in Diabetes 2016, [place] [employer]. Diabetes Care. 2016.39(Suppl 1). LAB [...] By: #### CBC, PT, BMP, PHOS #### [facility] [address] [place], [place] [address] PHOSPHORUS Collected: 10/04/2017 Status: F Source: [place] 3:36 AM [facility] REPOSITORY TYPE CODE TESTS RESULT OUT OF REFERENCE UNITS RANGE LAB PHOS 2.7-4.8 mg/dL Phosphorus 3.7 Performed By: #### CBC, PT, BMP, PHOS #### [facility] [address] [place], [place] [address] CASE MGT INIT Observed: 10/03/2017 Status: COMPLETED [facility] PM [facility] REPOSITORY HNO ID: [id number] Author: Candie SanchezRn) JEFF Williamson Service: Care Management Author Type: Registered Nurse Type: Care Mgt Initial Assessment Filed: 10/03/2017 1:16 PM Note Text: CARE MANAGEMENT: ASSESSMENT AND DISCHARGE PLAN SERVICE DATE: 10/03/2017 SERVICE TIME: 1:07 PM PRIMARY CARE PHYSICIAN: PEYTON ROGERS MD ADMISSION STATUS: Inpatient Needs Prior to Discharge: To Be Determined MEDICAL: Patient/Shiftman Stated Goals: To have reduction in symptoms To improve my functional status To return home to life as it was Health Insurance: MEDICARE A AND B Medicare, Medicaid Health Issues Impacting Discharge Plan: Hemoptysis Last Admission Date: Previous admit date: 08/25/2017 Is this Within the Past 30 days? No Advance Directive: Current Advance Directive: Health Care Power of Production Technician In Chart: No Cooker Soda Assisted with AD Completion: No Unable to [...] minute Has the Patient Been in a Retirement Facility in the Past 30 days? No SOCIAL: Living Arrangement: Apartment Lives With: Spouse Financial Resources: Disabled Primary Contact: Extended Emergency Contact Information Primary Emergency Contact: Davis,Morteza [address]: [address] [place] [address] Mobile Relation: Spouse Secondary Emergency Contact: NelliMorgan Mobile Relation: Father Mother: Jane Aiken [place] Supportive: Yes Other Important Patient Contacts: None [...] 0 I feel financially burdened by my cez-ku-dihlgb expenses for my prescription medication: Disagree completely [...] oxygen 2 liters @ night, supplied by [facility] ([facility] Patient stated has enough supply. Anticipated discharge plan is home with no skilled home care needs. Pt denies any new questions or concerns at this time. CM will continue to follow and update on discharge plans and needs. Upon discharge family will provide transport. SIGNATURE: Candie Williamson RN PATIENT NAME: Paloma Cannon DATE: October 03, 2017 TIME: 1:07 PM PAGER/CONTACT #: [phone] CONSULT PROG Observed: 10/03/2017 Status: COMPLETED Source: [place] 12:33 PM [facility] REPOSITORY HNO ID: [id number] Author: Paulette Gooden (Security Tester) LORRAINE Naranjo.ELLIOTT Service: Vascular Medicine Author Type: [...] AND HS sodium chloride 0.65 % 2 Atlantic (AYR, OCEAN) 2 Atlantic EACH NOSTRIL PRN gabapentin 300 mg cap(s) [...] APRN.CNP PATIENT NAME: Paloma Cannon DATE: October 03, 2017 TIME: 12:33 PM PAGER/CONTACT #: [phone] . PROGRESS Observed: 10/03/2017 Status: COMPLETED Source: [place] 11:39 AM [facility] REPOSITORY O ID: [id number] Author: Ameena Lim MD Service: Hospital Medicine Author Type: Physician Type: Progress Notes Filed: 10/03/2017 5:34 PM Note Text: DEPARTMENT OF HOSPITAL MEDICINE PROGRESS NOTE SERVICE DATE: 10/03/2017 SERVICE TIME: 11:39 AM Hospital Medicine/Primary Attending: Ameena Lim MD NIGHT AND WEEKEND COVERAGE: Days: [phone], please page me for patient issues. Nights: [phone], please page Team GIM1a; overnight coverage pager [phone] Subjective INTERVAL HPI: No acute events overnight. 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 Pxed-vy-ioie time was 20 minutes SIGNATURE: Ameena Lim MD PAGER:[phone] DATE of SERVICE: 10/03/2017 TIME of SERVICE: 5:34 PM PT ED Observed: 10/03/2017 Status: COMPLETED Source: [place] 10:39 AM [facility] REPOSITORY [facility] ID: [id number] Author: [facility] Provider Service: (none) Author Type: Physician Type: Patient Education Filed: 10/03/2017 10:39 AM Note Text: [facility] Patient Education Report --------- Name: PALOMA CANNON Date: 10/03/2017 Time: 10:38 AM Patient Ordered Video: Inpatient Falls from [id number] via phone number [phone] at 10:38 AM PLAN OF CARE Observed: 10/03/2017 Status: COMPLETED Source: [place] 10:29 AM [facility] REPOSITORY HNO ID: [id number] Author: Onofre Crawley (Housekeeping Laundry Worker) Service: Pharmacy Author Type: Pharmacist Type: Plan [...] See Comments Elevated cardiac enzymes Preferred Pharmacy: [facility] Current INSPECTOR FILTER TIP Medications: Prior to Admission medications as of [...] needed. Unknown at Unknown time ONOFRE CRAWLEY, PLANT TENDER [id number] October 03, 2017 10:29 AM PLAN OF CARE Observed: 10/03/2017 Status: COMPLETED Source: [place] 10:02 AM [facility] REPOSITORY O ID: [id number] Author: Onofre Crawley (Housekeeping Laundry Worker) Service: Pharmacy Author Type: Pharmacist Type: Plan [...] Additional comments: ? Medications to add to INSPECTOR FILTER TIP med list ? Fondaparinux 2.5 mg/0.5 mL injection - inject subcutaneously once daily. Bridge from warfarin. ? Torsemide 20 mg tablets scheduled daily - takes up to 60 mg total as needed for chronic edema ? INSPECTOR FILTER TIP list medication changes ? Patient takes amlodipine [...] See Comments Elevated cardiac enzymes Preferred Pharmacy: [facility] Current INSPECTOR FILTER TIP Medications: Prior to Admission medications as of [...] (FLONASE) 50 mcg/actuation nasal spray Use 1 Atlantic in each nostril once daily. Unknown at Unknown time senna 8.6 mg tab Take 1 tablet by mouth twice daily as needed. Unknown at Unknown time Fany Lion (Sand Sifter) October 03, 2017 10:03 AM ONOFRE CRAWLEY, PLANT TENDER [id number] 10/03/17 10:17 AM CONSULT PROG Observed: 10/03/2017 Status: COMPLETED Source: [place] 9:25 AM [facility] REPOSITORY O ID: [id number] Author: Justina Pollard (Pa) Service: Hematology Author Type: Physician Drywall Sander Type: Consult Progress Note Filed: 10/03/2017 2:49 [...] AND HS sodium chloride 0.65 % 2 Atlantic (AYR, OCEAN) 2 Atlantic EACH NOSTRIL PRN gabapentin 300 mg cap(s) [...] October 03, 2017 TIME: 9:25 AM PAGER: [phone] PROGRESS Observed: 10/03/2017 Status: COMPLETED Source: [place] 6:55 AM [facility] REPOSITORY HNO ID: [id number] Author: Danielle SanchezRn) Yudy RN Service: (none) [...] (L) PROGRESS Observed: 10/03/2017 Status: COMPLETED Source: [place] 5:27 AM [facility] REPOSITORY HNO ID: [id number] Author: Danielle Sauer) Yudy, RN Service: (none) Author Type: Registered [...] Sepsis alert received in AM (0600). Susan marcelle notified of alert. Day shift notified of alert. Will continue to monitor This note was completed by: Danielle Jimenes RN PROTIME Collected: 10/03/2017 Status: F Source: [place] 4:00 AM [facility] REPOSITORY TYPE CODE TESTS RESULT OUT OF RANGE REFERENCE UNITS LAB PSEC 9.7-13.0 sec PT Sec 11.4 LAB INR 0.9-1.3 PT INR 1.1 Result Comment: Vitamin K Antagonist (VKA) Therapeutic Range: INR 2 to 3 (Target INR of 2.5) Note: For patients treated with VKA drugs, such as warfarin, the [place] [employer] Chest [employer]icians 2012 Guideline recommends [...] Chest 2012, 141:7S-47S Diogenes RESENDIZ et al. [facility] 2017, 70: 252-289 Performed By: #### PT, CBC, BMP, MG1, PHOS #### [facility] [address] [place], [place] [address] CBC Collected: 10/03/2017 Status: F Source: [place] 4:00 AM [facility] REPOSITORY TYPE CODE TESTS RESULT OUT [...] #### PT, CBC, BMP, MG1, PHOS #### [facility] [address] [place], [place] [address] BASIC METABOLIC PANL Collected: 10/03/2017 Status: F Source: [place] 4:00 [facility] REPOSITORY TYPE CODE TESTS RESULT OUT OF REFERENCE UNITS RANGE LAB GLU 74-99 mg/dL High Glucose 131 Result Comment: The [place] Diabetes Association (ADA) provides guidance for cutoff [...] Standards of Medical Care in Diabetes 2016, [place] [employer]. Diabetes Care. 2016.39(Suppl 1). LAB [...] #### PT, CBC, BMP, MG1, PHOS #### [facility] [address] [place] [address] MAGNESIUM Collected: 10/03/2017 Status: F Source: [place] 4:00 AM [facility] REPOSITORY TYPE CODE TESTS RESULT OUT OF REFERENCE UNITS RANGE LAB MG 1.7-2.3 mg/dL Magnesium 2.0 Performed By: #### PT, CBC, BMP, MG1, PHOS #### [facility] [address] [place], [place] [address] PHOSPHORUS Collected: 10/03/2017 Status: F Source: [place] 4:00 AM [facility] REPOSITORY TYPE CODE TESTS RESULT OUT OF REFERENCE UNITS RANGE LAB PHOS 2.7-4.8 mg/dL Phosphorus 3.4 Performed By: #### PT, CBC, BMP, MG1, PHOS #### [facility] [address] [place], [place] [address] PROGRESS Observed: 10/02/2017 Status: COMPLETED Source: [place] 10:00 PM [facility] REPOSITORY HNO ID: [id number] Author: Danielle SanchezRn) Yudy RN Service: (none) [...] NURSING PROG Observed: 10/02/2017 Status: COMPLETED Source: [place] 8:00 PM [facility] REPOSITORY HNO ID: [id number] Author: Kathi SanchezRn) JEFF Jones Service: Nursing Author Type: Registered Nurse Type: Nursing Progress Note Filed: 10/02/2017 8:03 PM Note Text: Report called to H51 -21 PLAN OF CARE Observed: 10/02/2017 Status: COMPLETED Source: [place] 7:41 PM [facility] REPOSITORY HNO ID: [id number] Author: Jessica Scott (Haritha) Riky Service: Critical Care Author Type: Resident Type: Plan of Care Filed: 10/02/2017 7:42 PM Note Text: Patient has a bed on H51-21 under general internal medicine. Stable for transfer. Sign out given to [facility] who will assign an accepting physician once patient is transferred. Jessica Lan MD October 02, 2017 7:42 PM PLAN OF CARE Observed: 10/02/2017 Status: COMPLETED Source: [place] 3:14 PM [facility] REPOSITORY HNO ID: [id number] Author: Michelle Randhawa (Fel) Service: Hematology/Oncology Author Type: Fellow Type: Plan of Care Filed: 10/02/2017 3:15 PM Note Text: Chart reviewed and patient seen at bedside. Interim events noted. Pheresis today, Dr. González ponce. Anticoagulation being managed by . Hematology will continue to follow peripherally. Michelle Randhawa MD Hematology and Oncology Fellow Pager: [phone] October 02, 2017 3:15 PM CONSULT PROG Observed: 10/02/2017 Status: COMPLETED Source: [place] 2:28 PM [facility] REPOSITORY HNO ID: [id number] Author: Paulette Gooden (Security Tester) LORRAINE Naranjo.ELLIOTT Service: Vascular Medicine Author Type: [...] AND HS sodium chloride 0.65 % 2 Atlantic (AYR, OCEAN) 2 Atlantic EACH NOSTRIL PRN gabapentin 300 mg cap(s) [...] CBC/INR daily following along SIGNATURE: Paulette Naranjo APRN.CYTOTECHNOLOGIST SUPERVISOR PATIENT NAME: Paloma Cannon DATE: October 02, 2017 TIME: 2:28 PM PAGER/CONTACT #: [phone] . PROGRESS Observed: 10/02/2017 Status: COMPLETED Source: [place] 12:12 PM [facility] REPOSITORY HNO ID: [id number] Author: Sanjiv Corado Service: Critical Care Author [...] found to be positive for lupus anticoagulant, yqia-e4-ojbyxjhmdsns, and anti-cardiolipin antibodies for which she gets [...] today, no ICU requirements, may discharge to [facility] - Plans for plasmapheresis tomorrow per Hematology [...] triple positive with + lupus anticoagulant, + tgpo-t2-upvnwzohcyth, and + anti-cardiolipin antibodies, she is on [...] 02, 2017 TIME: 12:12 PM PAGER/CONTACT #: [phone] [facility] STAFF PHYSICIAN NOTE OF PERSONAL INVOLVEMENT IN [...] INSTITUTE PROCEDURE Observed: 10/02/2017 Status: COMPLETED Source: [place] 12:03 PM [facility] REPOSITORY HNO ID: [id number] Author: Lisseth Claudio MD Service: Apheresis Author [...] Collection bag identification label confirmed with { :[id number]::patient and s Date: 10/02/2017 Catheter Site Dressing: [...] Approx. 60ml blood returned. New treatment started [id number] without further difficulties. Patient instructed to continue abundant oral fluids. Report given to unit nurse. Patient remains in hospital bed. Treatment Started by Apheresis Nurse: Carmita Verdin RN Treatment Completed by Apheresis Nurse: .Carmita Verdin RN [facility] STAFF PHYSICIAN NOTE OF PERSONAL INVOLVEMENT IN [...] MD October 02, 2017 4:23 PM Pager: [phone] PROTIME Collected: 10/01/2017 Status: F Source: [place] 11:52 PM [facility] REPOSITORY TYPE CODE TESTS RESULT OUT OF RANGE REFERENCE UNITS LAB PSEC 9.7-13.0 sec PT Sec 12.5 LAB INR 0.9-1.3 PT INR 1.2 Result Comment: Vitamin K Antagonist (VKA) Therapeutic Range: INR 2 to 3 (Target INR of 2.5) Note: For patients treated with VKA drugs, such as warfarin, the [place] [employer]icians 2012 Guideline recommends [...] Chest 2012, 141:7S-47S Diogenes RA, et al. [facility] 2017, 70: 252-289 Performed By: #### PT, CBC, BMP, MG1, PHOS #### [facility] [address] [place], [place] [address] CBC Collected: 10/01/2017 Status: F Source: [place] 11:52 PM [facility] REPOSITORY TYPE CODE TESTS RESULT OUT [...] #### PT, CBC, BMP, MG1, PHOS #### [facility] [address] [place], [place] [address] BASIC METABOLIC PANL Collected: 10/01/2017 Status: F Source: [place] 11:52 PM [facility] REPOSITORY TYPE CODE TESTS RESULT OUT OF REFERENCE UNITS RANGE LAB GLU 74-99 mg/dL High Glucose 143 Result Comment: The [place] Diabetes Association (ADA) provides guidance for cutoff [...] Standards of Medical Care in Diabetes 2016, [place] [employer]. Diabetes Care. 2016.39(Suppl 1). LAB [...] #### PT, CBC, BMP, MG1, PHOS #### [facility] [address] [address] MAGNESIUM Collected: 10/01/2017 Status: F Source: [place] 11:52 PM [facility] REPOSITORY TYPE CODE TESTS RESULT OUT OF REFERENCE UNITS RANGE LAB MG 1.7-2.3 mg/dL Magnesium 2.0 Performed By: #### PT, CBC, BMP, MG1, PHOS #### [facility] [address] [address] PHOSPHORUS Collected: 10/01/2017 Status: F Source: [place] 11:52 PM [facility] REPOSITORY TYPE CODE TESTS RESULT OUT OF REFERENCE UNITS RANGE LAB PHOS 2.7-4.8 mg/dL Phosphorus 3.1 Performed By: #### PT, CBC, BMP, MG1, PHOS #### [facility] [address] [address] Observed: 10/01/2017 Status: F Source: [place] URINE CULTURE 10:50 PM [facility] REPOSITORY Sp. Request/Comment: - Specimen received in preservative Culture Result - 10,000 - <50,000 CFU/ml Three or more organisms, no one type predominant, suggesting contamination during collection. Recollect if clinically indicated. Performed By: #### URCUL #### [facility] [address] [address] URINALYSIS Collected: 10/01/2017 Status: F Source: [place] 9:52 AM [facility] REPOSITORY TYPE CODE TESTS RESULT OUT OF RANGE REFERENCE UNITS LAB UCOL Yellow Color Yellow LAB [facility] Clear Clarity Abnormal Cloudy Alert LAB UGLUC Negative mg/dL Glucose, Urine Negative LAB UBIL Negative Bilirubin, Urine Negative LAB UKET Negative Ketones, Urine Negative LAB USPG 1.005-1.030 Specific [place], Ur 1.019 LAB UHGB Negative Abnormal Hemoglobin/Blood, [...] Comment: N/A Performed By: #### UA #### [facility] [address] [place] [address] CONSULT PROG Observed: 10/01/2017 Status: COMPLETED Source: [place] 8:22 AM [facility] REPOSITORY HNO ID: [id number] Author: Darcie Choi MD Service: Vascular Medicine [...] 01, 2017 TIME: 8:22 AM PAGER/CONTACT #: [phone] . Staff addendum: I interviewed and examined [...] Staff PROGRESS Observed: 10/01/2017 Status: COMPLETED Source: [place] 8:21 AM [facility] REPOSITORY O ID: [id number] Author: Coy Lambert Service: Critical Care Author Type: Physician Type: Progress Notes Filed: 10/01/2017 10:24 AM Note Text: [facility] MICU/CRITICAL CARE DAILY PROGRESS NOTE Please [...] found to be positive for lupus anticoagulant, qggl-g4-libskruucvci, and anti-cardiolipin antibodies for which she gets [...] triple positive with + lupus anticoagulant, + zqxe-y2-knakhwcfpaay, and + anti-cardiolipin antibodies, she is on [...] 01, 2017 TIME: 8:22 AM PAGER/CONTACT #: [phone] [facility] STAFF PHYSICIAN NOTE OF PERSONAL INVOLVEMENT IN [...] of care,? medical plan for the day, library sales consultant recommendations, medical disposition and current [...] INSTITUTE PROTIME Collected: 10/01/2017 Status: F Source: [place] 12:26 AM [facility] REPOSITORY TYPE CODE TESTS RESULT OUT OF RANGE REFERENCE UNITS LAB PSEC 9.7-13.0 sec High PT Sec 15.1 LAB INR 0.9-1.3 High PT INR 1.5 Result Comment: Vitamin K Antagonist (VKA) Therapeutic Range: INR 2 to 3 (Target INR of 2.5) Note: For patients treated with VKA drugs, such as warfarin, the [place] [employer] 2012 Guideline recommends [...] (target INR of 3). Michael PLASENCIA et al. Chest 2012, 141:7S-47S Diogenes RA, et al. [facility] 2017, 70: 252-289 Performed By: #### PT, CBC, BMP #### [facility] [address] [place], [place] [address] CBC Collected: 10/01/2017 Status: F Source: [place] 12:26 AM [facility] REPOSITORY TYPE CODE TESTS RESULT OUT [...] Performed By: #### PT, CBC, BMP #### [facility] [address] [place], [place] [id number] BASIC METABOLIC PANL Collected: 10/01/2017 Status: F Source: [place] 12:26 AM [facility] REPOSITORY TYPE CODE TESTS RESULT OUT OF REFERENCE UNITS RANGE LAB GLU 74-99 mg/dL Glucose 98 Result Comment: The [place] Diabetes Association (ADA) provides guidance for cutoff [...] Standards of Medical Care in Diabetes 2016, [place] [employer]. Diabetes Care. 2016.39(Suppl 1). LAB [...] Performed By: #### PT, CBC, BMP #### [facility] [address] [id number] CONSULT Observed: 09/30/2017 Status: COMPLETED Source: [place] 3:19 PM [facility] REPOSITORY HNO ID: [id number] Author: Michelle Randhawa (Fel) Service: Hematology/Oncology Author Type: Fellow Type: Consults Filed: 09/30/2017 3:19 PM Note Text: Please see consult note. Michelle Randhawa MD Hematology and Oncology Fellow Pager: [phone] September 30, 2017 3:19 PM CONSULT Observed: 09/30/2017 Status: COMPLETED Source: [place] 2:59 PM [facility] REPOSITORY HNO ID: [id number] Author: Tanner Lakhani Service: Hematology/Oncology Author Type: Physician Type: Consults Filed: 09/30/2017 3:49 PM Note Text: Name: Paloma Cannon Age/Sex: 27 y/o F Bed-space: [address] [address] Reason for Consult: H/o APS Context of [...] nephrotoxic agents - DVT (deep venous thrombosis) ([facility]) - Elevated CA-125 11/30/2013 244 - Essential hypertension 10/08/2015 Stable on home medications Plan: -continue to monitor on home meds - 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 Bivalirudin to Warfarin bridging - HIT (heparin-induced thrombocytopenia) ([facility]) - Nontoxic multinodular goiter - Obese - [...] CBC, Coags, BMP, Mg, Phos Recent Labs 03/24/18 1239 09/30/17 0837 09/29/17 2347 09/29/17 1804 [...] Liver Function, Amylase, AND Lipase Recent Labs 09/29/17234609/29/17 1804 TPROT 5.8* 6.0* ALB 3.5* 3.7* [...] Randhawa MD Hematology and Oncology Fellow Pager: [phone] September 30, 2017 3:18 PM [facility] STAFF PHYSICIAN NOTE OF PERSONAL INVOLVEMENT IN [...] Monday. Tanner Lakhani MD Staff Hematology Pager [phone] Date of Service: 09/30/2017 Time of Service: 3:49 PM PROGRESS Observed: 09/30/2017 Status: COMPLETED Source: [place] 1:21 PM [facility] [place] REPOSITORY HNO ID: [id number] Author: Niharika Laird MD Service: Critical Care [...] found to be positive for lupus anticoagulant, xncj-i9-dnghvphvjzvb, and anti-cardiolipin antibodies for which she gets [...] triple positive with + lupus anticoagulant, + ramd-a5-wiprbjxymbla, and + anti-cardiolipin antibodies, she is on [...] 30, 2017 TIME: 1:21 PM PAGER/CONTACT #: [phone] PROTIME Collected: 09/30/2017 Status: F Source: [place] 12:39 PM [facility] REPOSITORY TYPE CODE TESTS RESULT OUT OF RANGE REFERENCE UNITS LAB PSEC 9.7-13.0 sec High PT Sec 18.5 LAB INR 0.9-1.3 High PT INR 1.9 Result Comment: Vitamin K Antagonist (VKA) Therapeutic Range: INR 2 to 3 (Target INR of 2.5) Note: For patients treated with VKA drugs, such as warfarin, the [place] [employer]icians 2012 Guideline recommends [...] Chest 2012, 141:7S-47S Diogenes RA, et al. [facility] 2017, 70: 252-289 Performed By: #### PT #### [facility] [address] [address] NUTRITION Observed: 09/30/2017 Status: COMPLETED Source: [place] 10:52 AM [facility] REPOSITORY HNO ID: [id number] Author: Camilla Bang-T) Rebeca Service: Nutrition Therapy Author Type: Protective Signal Installer Helper Type: Nutrition Filed: 09/30/2017 10:53 AM [...] September 30, 2017 TIME: 10:52 AM PAGER: [phone] PROGRESS Observed: 09/30/2017 Status: COMPLETED Source: [place] 10:22 AM [facility] REPOSITORY O ID: [id number] Author: Coy Lambert Service: Pulmonary Disease Author Type: Physician Type: Progress Notes Filed: 09/30/2017 10:39 AM Note Text: [facility] STAFF PHYSICIAN NOTE OF PERSONAL INVOLVEMENT IN [...] of care, medical plan for the day, library sales consultant recommendations, medical disposition and current [...] INSTITUTE CONSULT Observed: 09/30/2017 Status: COMPLETED Source: [place] 9:52 AM [facility] REPOSITORY [facility] ID: [id number] Author: Darcie Choi MD Service: Vascular Medicine [...] to Warfarin bridging - HIT (heparin-induced thrombocytopenia) ([facility]) - Nontoxic multinodular goiter - Obese - [...] (FLONASE) 50 mcg/actuation nasal spray Use 1 Atlantic in each nostril once daily. senna 8.6 [...] with urination: N/A Blood in urine: No SENIOR MANAGER ASSET PROTECTION: Abnormal vaginal bleeding: No History of loss: [...] 30, 2017 TIME: 1:45 PM PAGER/CONTACT #: [phone] . Staff addendum: I interviewed and examined [...] Staff CBC Collected: 09/30/2017 Status: F Source: [place] 8:37 AM [facility] REPOSITORY TYPE CODE TESTS [...] Absolute nRBC Performed By: #### CBC #### [facility] [address] [place], [place] [address] CBC AND DIFFERENTIAL Collected: 09/29/2017 Status: F Source: [place] 11:47 PM [facility] REPOSITORY TYPE CODE TESTS [...] Abs 0.14 Low Lymph LAB AMONO % Alexander% 6.1 LAB AAMONO <0.87 k/uL Abs 0.32 [place] LAB AEOS % 2.8 Eosin% LAB AAEOS <0.46 k/uL Abs 0.15 Eosin LAB ABASO % Baso% 0.4 LAB AABASO <0.11 k/uL Abs <0.03 Baso LAB AUNRBC 0 /100 WBC NRBCs 0.0 LAB ABNRBC <0.01 k/uL <0.01 Absolute nRBC LAB DTYP DTYPE Auto Diff Performed By: #### CBCDIF, CMP, MG1, PHOS #### [facility] [address] [place], [place] [address] COMP METABOLIC PANEL Collected: 09/29/2017 Status: F Source: [place] 11:47 PM [facility] REPOSITORY TYPE CODE TESTS [...] mg/dL Glucose High 116 Result Comment: The [place] Diabetes Association (ADA) provides guidance for cutoff [...] Standards of Medical Care in Diabetes 2016, [place] [employer]. Diabetes Care. 2016.39(Suppl 1). LAB [...] By: #### CBCDIF, CMP, MG1, PHOS #### [facility] [address] [place] [address] MAGNESIUM Collected: 09/29/2017 Status: F Source: [place] 11:47 PM [facility] REPOSITORY TYPE CODE TESTS RESULT OUT OF REFERENCE UNITS RANGE LAB MG 1.7-2.3 mg/dL Magnesium 1.8 Performed By: #### CBCDIF, CMP, MG1, PHOS #### [facility] [address] [address] PHOSPHORUS Collected: 09/29/2017 Status: F Source: [place] 11:47 PM [facility] REPOSITORY TYPE CODE TESTS RESULT OUT OF REFERENCE UNITS RANGE LAB PHOS 2.7-4.8 mg/dL Phosphorus 4.0 Performed By: #### CBCDIF, CMP, MG1, PHOS #### [facility] [address] [address] HISTORY PHYSICAL Observed: 09/29/2017 Status: COMPLETED Source: [place] 11:23 PM [facility] REPOSITORY HNO ID: [id number] Author: Austen Choudhury Service: Critical Care Author Type: Physician Type: HANDP Filed: 09/29/2017 11:42 PM Note Text: [facility] STAFF PHYSICIAN NOTE OF PERSONAL INVOLVEMENT IN [...] with antiphospholipid syndrome (+ lupus anticoagulant, + pvci-r3-qucfgtzrvvgf, and + anti-cardiolipin antibodies) on plasmapheresis since [...] minutes. SIGNATURE: Austen Choudhury MD [facility] PAGER:[phone] DATE of SERVICE: September 29, 2017 ED NOTE Observed: 09/29/2017 Status: COMPLETED Source: [place] 10:10 PM [facility] REPOSITORY HNO ID: [id number] Author: Irasema Zaragoza RN Service: Emergency Medicine Author Type: Registered Nurse Type: ED Notes Filed: 09/29/2017 10:16 PM Note Text: Report given to JEFF Armenta. HISTORY PHYSICAL Observed: 09/29/2017 Status: COMPLETED Source: [place] 10:03 PM [facility] REPOSITORY HNO ID: [id number] Author: Ernie Klein Service: Critical Care Author [...] found to be positive for lupus anticoagulant, ynjs-r5-bxavcijmmldl, and anti-cardiolipin antibodies for which she gets [...] stressors OBJECTIVE: VITAL SIGNS (last 24hrs min/max): 09/29/17211609/29/17 21509/29/17 2213 09/29/17 2300 BP: 143/81 144/70 150/72 Pulse: (!) 117 (!) 110 (!) 111 113 Resp: 22 22 20 Temp: 37.2 ?C (98.9 ?F) 37.1 ?C (98.8 ?F) TempSrc: Oral Oral SpO2: (!) 92% (!) 93% 96% Weight: 97.2 kg (214 lb 4.6 oz) Height: NET FLUID BALANCE No intake or output data in the 24 hours ending 09/29/178 INFUSIONS: No Other Lines/Drains: Peripheral IVs HEENT: [...] Coags, BMP, Mg, Phos Recent Labs 09/29/17 180 WBC 6.48 HB 8.7* HCT 28.2* PLT 41* INR 2.1* APTT 33.8* NA 135* K 3.5* CHLOR 98 CO2 22 BUN 21 CREAT 1.13* GLUC 74 CA 8.8 MG 1.7 Liver Function, Amylase, AND Lipase Recent Labs 09/29/17 180 TPROT 6.0* ALB 3.7* ALT <5* AST [...] found to be positive for lupus anticoagulant, qznb-s3-nnixyfzwfqxt, and anti-cardiolipin antibodies for which she gets [...] triple positive with + lupus anticoagulant, + mdkd-p3-kbnvuqkwbopc, and + anti-cardiolipin antibodies, she is on [...] No Ernie Klein MD Internal Medicine- PGY3 Pager:[phone] September 29, 2017 10:04 PM ED NOTE Observed: 09/29/2017 Status: COMPLETED Source: [place] 9:30 PM [facility] REPOSITORY HNO ID: [id number] Author: Irasema (Rn) JEFF Zaragoza Service: Emergency Medicine Author Type: Registered Nurse Type: ED Notes Filed: 09/29/2017 10:17 PM Note Text: Pt sitting in bed with a snack. No complaints at this time. Denies sob and chest pain. NAD noted. Will continue to monitor. PROGRESS Observed: 09/29/2017 Status: COMPLETED Source: [place] 6:17 PM [facility] REPOSITORY HNO ID: [id number] Author: Sue SanchezRtDevonte Bah Service: Radiology Author Type: Chute Operator Type: Progress Notes Filed: 09/29/2017 6:17 [...] PROV NOTE Observed: 09/29/2017 Status: COMPLETED Source: [place] 6:12 PM [facility] REPOSITORY HNO ID: [id number] Author: Fany Shine MD Service: Emergency Medicine [...] disposition: stable SIGNATURE: MD Harvinder Ngo (Res) Lamoni Resident 09/29/17 1903 Harvinder Kang (Res) [place] Resident 09/29/17 2152 Attending Note I evaluated the patient and [...] Time: 11:33 PM Fany Shine MD 09/29/17 8404 ED NOTE Observed: 09/29/2017 Status: COMPLETED Source: [place] 6:07 PM [facility] REPOSITORY HNO ID: [id number] Author: Irasema (Rn) JEFF Zaragoza Service: Emergency Medicine Author Type: Registered Nurse Type: ED Notes Filed: 09/29/2017 6:07 PM Note Text: Labs were drawn and sent. CBC AND DIFFERENTIAL Collected: 09/29/2017 Status: F Source: [place] 6:04 PM [facility] REPOSITORY TYPE CODE TESTS RESULT OUT [...] Abs 0.14 Low Lymph LAB AMONO % Alexander% 6.9 LAB AAMONO <0.87 k/uL Abs 0.45 [place] LAB AEOS % 2.8 Eosin% LAB AAEOS <0.46 k/uL Abs 0.18 Eosin LAB ABASO % Baso% 0.6 LAB AABASO <0.11 k/uL Abs 0.04 Baso LAB AUNRBC 0 /100 WBC NRBCs 0.0 LAB ABNRBC <0.01 k/uL <0.01 Absolute nRBC LAB DTYP DTYPE Auto Diff Performed By: #### CBCDIF, CMP, MG1 #### [facility] [address] [place], [place] [address] COMP METABOLIC PANEL Collected: 09/29/2017 Status: F Source: [place] 6:04 PM [facility] REPOSITORY TYPE CODE TESTS RESULT OUT OF REFERENCE UNITS RANGE LAB TP 6.3-8.0 g/dL Low Protein, Total 6.0 LAB ALB 3.9-4.9 g/dL Low Albumin 3.7 LAB CA 8.5-10.2 mg/dL Calcium, Total 8.8 LAB TBIL 0.2-1.3 mg/dL Bilirubin, Total 1.0 LAB ALKP 32-117 U/L Alkaline Phosphatase 59 LAB AST 13-35 U/L Low AST 12 LAB GLU 74-99 mg/dL Glucose 74 Result Comment: The [place] Diabetes Association (ADA) provides guidance for cutoff [...] Standards of Medical Care in Diabetes 2016, [place] [employer]. Diabetes Care. 2016.39(Suppl 1). LAB [...] Performed By: #### CBCDIF, CMP, MG1 #### [facility] [address] [place] [id number] MAGNESIUM Collected: 09/29/2017 Status: F Source: [place] 6:04 PM [facility] REPOSITORY TYPE CODE TESTS RESULT OUT OF REFERENCE UNITS RANGE LAB MG 1.7-2.3 mg/dL Magnesium 1.7 Performed By: #### CBCDIF, CMP, MG1 #### [facility] [address] [place] [id number] PROTIME Collected: 09/29/2017 Status: F Source: [place] 6:04 PM [facility] REPOSITORY TYPE CODE TESTS RESULT OUT OF RANGE REFERENCE UNITS LAB PSEC 9.7-13.0 sec High PT Sec 20.3 LAB INR 0.9-1.3 High PT INR 2.1 Result Comment: Vitamin K Antagonist (VKA) Therapeutic Range: INR 2 to 3 (Target INR of 2.5) Note: For patients treated with VKA drugs, such as warfarin, the [place] [employer] 2012 Guideline recommends [...] 252-289 Performed By: #### PT, PTT #### [facility] [address] [place], [place] [address] APTT Collected: 09/29/2017 Status: F Source: [place] 6:04 [facility] REPOSITORY TYPE CODE TESTS RESULT [...] laboratory APTT reagent in use throughout the [facility]. Performed By: #### PT, PTT #### [facility] [address] [place], [place] [address] TYPE AND SCREEN Collected: 09/29/2017 Status: F Source: [place] 6:04 [facility] REPOSITORY TYPE CODE TESTS RESULT OUT OF REFERENCE UNITS RANGE LAB %ABR B ABO/RH(D) POSITIVE LAB % Antibody POS Screen Performed By: #### TSCR #### [facility] [address] [place], [place] [address] XR CHEST 1V FRONTAL Observed: 09/29/2017 Status: F Source: [facility] 5:50 PM [facility] REPOSITORY * * *Final Report* * [...] unremarkable. Other: Osseous structures are grossly unremarkable. Glass Edger: PSCB Transcribe Date/Time: Sep 29 2017 6:23P Dictated by : ASHLIE ROSAS MD This examination was interpreted and the report reviewed and electronically signed by: NAVI LOWERY MD on Sep 29 2017 6:31PM EST [id number] ED NOTE Observed: 09/29/2017 Status: COMPLETED Source: [place] 5:40 PM [facility] REPOSITORY HNO ID: [id number] Author: Irasema Sauer) JEFF Zaragoza Service: Emergency [...] ED NOTE Observed: 09/29/2017 Status: COMPLETED Source: [place] 5:38 PM [facility] REPOSITORY HNO ID: [id number] Author: Christin Lea Service: Emergency Medicine Author [...] ED NOTE Observed: 09/29/2017 Status: COMPLETED Source: [place] 5:36 PM [facility] REPOSITORY HNO ID: [id number] Author: ROXY Peters (Ct) Service: Emergency Medicine Author Type: Clinical Chute Operator Type: ED Notes Filed: 09/29/2017 5:37 PM Note Text: EKG OBTAINED IN INTAKE UPON ARRIVAL. ED NOTE Observed: 09/29/2017 Status: COMPLETED Source: [place] 5:27 PM [facility] REPOSITORY HNO ID: [id number] Author: ROXY Peters (Ct) Service: Emergency Medicine Author Type: Clinical Chute Operator Type: ED Notes Filed: 09/29/2017 5:27 PM Note Text: EKG OBTAINED IN INTAKE UPON ARRIVAL. ED TRIAGE NOTE Observed: 09/29/2017 Status: COMPLETED Source: [place] 5:24 PM [facility] REPOSITORY HNO ID: [id number] Author: CY Byrnes (Pa) Service: Emergency Medicine Author Type: Physician Drywall Sander Type: ED Triage Notes Filed: 09/29/2017 5:26 [...] ED NOTE Observed: 09/29/2017 Status: COMPLETED Source: [place] 5:20 PM [facility] REPOSITORY HNO ID: [id number] Author: Angella (Rn) JEFF Faria Service: Emergency Medicine Author Type: [...] TIME W/INR Collected: 09/29/2017 Status: F Source: [place] 8:00 AM [facility] REPOSITORY Order Comment: MEDOUT/PORT DRAW TYPE CODE TESTS RESULT OUT OF RANGE REFERENCE UNITS LAB L300.4150 11.7-14.9 SECONDS High PROTIME 23.1 LAB L300.4200 Normal INR 2.0 Performed By: #### L300.3900 #### [facility] [address] [place], [address] PROGRESS Observed: 09/27/2017 Status: COMPLETED Source: [place] 4:08 PM [facility] REPOSITORY HNO ID: [id number] Author: Dominique Wright Service: (none) Author Type: [...] (FLONASE) 50 mcg/actuation nasal spray Use 1 Atlantic in each nostril once daily. pantoprazole DR [...] p.m. PROGRESS Observed: 09/27/2017 Status: COMPLETED Source: [place] 3:48 PM [facility] [place] REPOSITORY [facility] ID: [id number] Author: Devi SanchezRn) JEFF Fernandes Service: (none) Author Type: Registered Nurse Type: Progress Notes Filed: 09/27/2017 5:00 PM Note Text: Sterile dressing change completed on apheresis catheter and PICC catheter sites. Sterile cap change of PICC line performed. No complications. Devi Fernandes RN CNOV Observed: 09/27/2017 Status: COMPLETED Source: [place] 3:45 PM [facility] REPOSITORY Office Visit (INFDMN) PALOMA CANNON ([id number]) 1990 F PTR Date Time Provider Department [...] (FLONASE) 50 mcg/actuation nasal spray Use 1 Atlantic in each nostril once daily. pantoprazole DR [...] * FLUTICASONE 50 MCG/ACTUATION * Use 1 Atlantic in each nostril o* PANTOPRAZOLE 40 MG [...] 09/27/17 CNOVSP Observed: 09/27/2017 Status: COMPLETED Source: [place] 3:00 PM [facility] REPOSITORY Visit (SP) Office ([facility]) DAVISPALOMA M ([id number]) 1990 F PTR Date Time Provider Department 09/27/17 3:00 PM [facility] During your visit today, we recorded the following information about you: Devi Fernandes RN, RN 09/27/2017 5:00 PM Signed Sterile [...] Fully Assessed Primary Visit Diagnosis:APS (antiphospholipid syndrome) ([facility]) [D68.61] Prescriptions as of 09/27/2017 Sig: ONDANSETRON [...] * FLUTICASONE 50 MCG/ACTUATION * Use 1 Atlantic in each nostril o* PANTOPRAZOLE 40 MG [...] 09/22/2017 Status: F Source: [place] 8:05 AM [facility] REPOSITORY Order Comment: MEDOUT/PORT DRAW TYPE CODE TESTS RESULT OUT OF RANGE REFERENCE UNITS LAB L300.4150 11.7-14.9 SECONDS High PROTIME 19.4 LAB L300.4200 Normal INR 1.6 Performed By: #### L300.3900 #### [facility] [address] [place], [address] PROGRESS Observed: 09/18/2017 Status: COMPLETED Source: [place] 1:57 PM [facility] REPOSITORY HNO ID: [id number] Author: Elsa Mello (Coord) Service: (none) Author Type: Steel Finisher Type: Progress Notes Filed: 09/18/2017 1:57 PM Note Text: Patient had appointments today at [facility]. I provided a parking pass. Adriana Mello Patient Chain Pegger [facility] [phone] / [phone] PROGRESS Observed: 09/18/2017 Status: COMPLETED Source: [place] 1:13 PM [facility] REPOSITORY HNO ID: [id number] Author: Lisseth Claudio MD Service: (none) Author [...] left and blue port Medications given: See [facility] audit report. Volume treated: 6505 ml whole [...] treatment: 10/02/2017 Signed by: Devi Fernandes RN [facility] STAFF PHYSICIAN NOTE OF PERSONAL INVOLVEMENT IN [...] MD September 18, 2017 3:29 PM Pager: [phone] CBC AND DIFFERENTIAL Collected: 09/18/2017 Status: F Source: [place] 12:36 PM [facility] REPOSITORY TYPE CODE TESTS [...] Abs 0.31 Low Lymph LAB AMONO % Alexander% 6.3 LAB AAMONO <0.87 k/uL Abs 0.36 [place] LAB AEOS % 3.0 Eosin% LAB AAEOS <0.46 k/uL Abs 0.17 Eosin LAB ABASO % Baso% 0.7 LAB AABASO <0.11 k/uL Abs 0.04 Baso LAB AUNRBC 0 /100 WBC NRBCs 0.0 LAB ABNRBC <0.01 k/uL <0.01 Absolute nRBC LAB DTYP DTYPE Auto Diff Performed By: #### CBCDIF, CMP #### [facility] [address] [place], [place] [address] COMP METABOLIC PANEL Collected: 09/18/2017 Status: F Source: [place] 12:36 PM [facility] REPOSITORY TYPE CODE TESTS [...] 74-99 mg/dL Glucose 99 Result Comment: The [place] [employer] (ADA) provides guidance for cutoff [...] Standards of Medical Care in Diabetes 2016, [place] [employer]. Diabetes Care. 2016.39(Suppl 1). LAB [...] GFR. Performed By: #### CBCDIF, CMP #### [facility] [address] [id number] FACTOR VIII:C ASSAY Collected: 09/18/2017 Status: F Source: [place] 12:36 PM [facility] REPOSITORY TYPE CODE TESTS RESULT OUT [...] months. Performed By: #### FVIIIC, LUPUSP #### [facility] [address] [place], [place] [address] LUPUS ANTICOAG PANEL Collected: 09/18/2017 Status: F Source: [place] 12:36 PM [facility] HOSPITAL REPOSITORY TYPE CODE TESTS RESULT OUT OF RANGE REFERENCE UNITS LAB PSEC 9.7-13.0 sec High PT Sec 14.6 LAB INR 0.9-1.3 High PT INR 1.4 Result Comment: Vitamin K Antagonist (VKA) Therapeutic Range: INR 2 to 3 (Target INR of 2.5) Note: For patients treated with VKA drugs, such as warfarin, the [place] [employer]icians 2012 Guideline recommends [...] Chest 2012, 141:7S-47S Diogenes RESENDIZ et al. [facility] 2017, 70: 252-289 LAB APTT 23.0-32.4 sec [...] laboratory APTT reagent in use throughout the [facility]. LAB PLTNEU Negative Abnormal Alert PNP Positive [...] The following results were obtained with an [employer] Lite JOESPH IgA III JESSICA. Cardiolipin IgA [...] Positive These results were obtained with the [employer] QUANTA Lite B2 GPI IgM JESSICA. B2 GPI IgM values obtained with different manufacturers' assay methods may not be used interchangeably. The magnitude of the repo rted IgM levels cannot be correlated to an endpoint titer. Performed By: #### FVIIIC, LUPUSP #### [facility] [address] [id number] CNOVSP Observed: 09/18/2017 Status: COMPLETED Source: [place] 12:00 PM [facility] REPOSITORY Visit (SP) Office ([facility]) PALOMA CANNON ([id number]) 1990 F PTR Date Time Provider Department 09/18/17 12:00 PM APHERESIS DAREK MAIN [facility] During your visit today, we recorded the [...] left and blue port Medications given: See [facility] audit report. Volume treated: 6505 ml whole [...] treatment: 10/02/2017 Signed by: Devi Fernandes RN [facility] STAFF PHYSICIAN NOTE OF PERSONAL INVOLVEMENT IN [...] MD September 18, 2017 3:29 PM Pager: [phone] Referring Provider: LISSETH CLAUDIO [[id number]] Allergies As of Date: 09/18/2017 Noted Allergy [...] Plasmapheresis [1323] Primary Visit Diagnosis:APS (antiphospholipid syndrome) ([facility]) [D68.61] Order(s):LUPUS ANTICOAG PL [SQLUPUSP] Order #: [id number]. #:[id number] CBC + DIFF [SQCBCDIF] Order #: [id number]. #:[id number] COMP METABOLIC PANEL [SQCMP] Order #: [id number]. #:[id number] HEMON NURSING COMMUNICATION [[id number]] Order #: [id number]: 1 TREATMENT PARAMETERS [] Order #: [id number]: 1 HEMONC NURSING COMMUNICATION [[id number]] Order #: [id number]: 1 STANDING [] diphenhydrAMINE 50 mg injection [...] * FLUTICASONE 50 MCG/ACTUATION * Use 1 Atlantic in each nostril o* PANTOPRAZOLE 40 MG [...] 09/18/17 HOSP Observed: 09/18/2017 Status: COMPLETED Source: [place] 12:00 AM [facility] REPOSITORY Patient Update ([facility]) PALOMA CANNON ([id number]) 1990 F [facility] Date Time Provider Department 09/18/17 ELSA MELLO (COORD) [facility] During your visit today, we recorded the following information about you: Elsa Mello, Coord 09/18/2017 1:57 PM Signed Patient had appointments today at [facility]. I provided a parking pass. Adriana Mello Patient Chain Pegger [facility] [place] [phone] / [phone] Allergies As of Date: 09/18/2017 [...] Assessed Reason for Visit: Cancer Patient Support [0941] Prescriptions as of 09/18/2017 Sig: ONDANSETRON HCL [...] * FLUTICASONE 50 MCG/ACTUATION * Use 1 Atlantic in each nostril o* PANTOPRAZOLE 40 MG [...] 09/18/17 ELLIOTTN Observed: 09/18/2017 Status: COMPLETED Source: [place] 12:00 AM [facility] REPOSITORY Telephone (PERVMN) PALOMA CANNON ([id number]) 1990 [facility] Date Time Provider Department 09/18/17 MAGDALENA PARMAR (ELLIOTT) [facility] During your visit today, we recorded the following information about you: Magdalena eLwis CNP, CYTOTECHNOLOGIST SUPERVISOR 09/18/2017 4:07 PM Addendum INR today is [...] * FLUTICASONE 50 MCG/ACTUATION * Use 1 Atlantic in each nostril o* PANTOPRAZOLE 40 MG [...] 09/15/2017 Status: F Source: [place] 8:00 AM [facility] REPOSITORY TYPE CODE TESTS RESULT OUT OF RANGE REFERENCE UNITS LAB L300.4150 11.7-14.9 SECONDS High PROTIME 24.5 LAB L300.4200 Normal INR 2.2 Performed By: #### L300.3900 #### [facility] [address] [place], [address] PROGRESS Observed: 09/12/2017 Status: COMPLETED Source: [place] 2:21 PM [facility] REPOSITORY HNO ID: [id number] Author: Geraldine Linares (Sw) Service: (none) Author Type: Steel Finisher Type: Progress Notes Filed: 09/28/2017 10:39 AM Note Text: Erika met with patient to assess service needs in home and community. Patient has interest in therapy dog and in home care assistance. Erika discussed applying to [place] Medicaid Home Care Waiver. Patient signed home care waiver referral form. Waiver could assist with Emergency Response system, home adaptive medical equipment, home delivered meals, and geriatric personal care aide to assist with coordinating health care needs. Erika will also research therapy dog request and let patient know how to go about obtaining therapy pet. Patient also reports that she is seeing counselor at [facility]. Erika discussed with patient signing consent through [facility] in order for continuity of care for patient and [facility]. Patient reports that she will sign consent to better discuss patient care. PROGRESS Observed: 09/12/2017 Status: COMPLETED Source: [place] 8:14 AM [facility] REPOSITORY HNO ID: [id number] Author: Akhil Howard Service: (none) Author Type: [...] Clostridium difficile colitis. Patient was admitted to [facility] on 08/25 for a 12 day admission. [...] at night. Follow up appointment yesterday with graphic pre press trades worker showing a 75% lung improvement. Complaints today [...] condenser for travel and long trips to [facility]. Requiring wheelchair for extended travel. Previous wheelchair [...] (FLONASE) 50 mcg/actuation nasal spray Use 1 Atlantic in each nostril once daily. pantoprazole DR [...] 3 additional months. Managed by oncology/hematology at [facility] main - COMPOUNDED PRESCRIPTION- O2 condenser - STANDARD WHEELCHAIR - Follow up as scheduled in [address] worker, Geraldine Linares, Met with patient and to discuss out patient resources and to investigate service dog/animal for depressive symptoms. Prescription instructions reviewed with patient as applicable. Potential red flag symptoms discussed with the patient. Reviewed appropriate action plan to take if red flag symptoms occur. Patient agreeable to treatment plan. Akhil Howard CNP CNOV Observed: 09/12/2017 Status: COMPLETED Source: [place] 8:00 AM [facility] REPOSITORY Office Visit (INTMWS) PALOMA CANNON ([id number]) 1990 F PTR Date Time Provider Department [...] Clostridium difficile colitis. Patient was admitted to [facility] on 08/25 for a 12 day admission. [...] at night. Follow up appointment yesterday with graphic pre press trades worker showing a 75% lung improvement. Complaints today [...] condenser for travel and long trips to [facility] Main [place]. Requiring wheelchair for extended travel. 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 pantoprazole DR [...] 3 additional months. Managed by oncology/hematology at [facility] main - COMPOUNDED PRESCRIPTION- O2 condenser - STANDARD WHEELCHAIR - Follow up as scheduled in [address] worker, Geraldine Linares, Met with patient and [...] for Nausea/Vomiting.Disp: 40 tabletRfl: 3 STANDARD WHEELCHAIR [[id number]] Order #: [id number] gabapentin (NEURONTIN) 300 mg capsuleTake 600mg in [...] * FLUTICASONE 50 MCG/ACTUATION * Use 1 Atlantic in each nostril o* PANTOPRAZOLE 40 MG [...] 09/12/17 CNSW Observed: 09/12/2017 Status: COMPLETED Source: [place] 12:00 AM [facility] REPOSITORY Social Work (CEDRICWST) PALOMA CANNON ([id number]) 1990 F PTR Date Time Provider Department [...] adaptive medical equipment, home delivered meals, and geriatric personal care aide to assist with coordinating health care needs. [...] * FLUTICASONE 50 MCG/ACTUATION * Use 1 Atlantic in each nostril o* PANTOPRAZOLE 40 MG [...] 09/28/17 URINALYSIS Collected: 09/11/2017 Status: F Source: [place] 1:36 PM [facility] [place] REPOSITORY TYPE CODE TESTS RESULT OUT OF RANGE REFERENCE UNITS LAB UCOL Yellow Color Yellow LAB [facility] Clear Clarity Abnormal Cloudy Alert LAB UGLUC Negative mg/dL Glucose, Urine Negative LAB UBIL Negative Bilirubin, Urine Negative LAB UKET Negative Ketones, Urine Negative LAB USPG 1.005-1.030 Specific [place], Ur 1.020 LAB UHGB Negative Hemoglobin/Blood, Negative [...] Oxalate Crystal Performed By: #### UA #### [facility] [address] [address] COMP METABOLIC PANEL Collected: 09/11/2017 Status: F Source: [place] 12:04 PM [facility] [place] REPOSITORY TYPE CODE TESTS RESULT OUT OF REFERENCE UNITS RANGE LAB TP 6.3-8.0 g/dL Low Protein, Total 6.2 LAB ALB 3.9-4.9 g/dL Albumin 4.1 LAB CA 8.5-10.2 mg/dL Calcium, Total 8.8 LAB TBIL 0.2-1.3 mg/dL Bilirubin, Total 0.4 LAB ALKP 32-117 U/L Alkaline Phosphatase 50 LAB AST 13-35 U/L AST 16 LAB GLU 74-99 mg/dL Glucose High 134 Result Comment: The [place] Diabetes Association (ADA) provides guidance for cutoff [...] Standards of Medical Care in Diabetes 2016, [place] Diabetes Association. Diabetes Care. 2016.39(Suppl 1). LAB [...] Performed By: #### CMP, CRP, WSR #### [facility] [address] [place], [place] [address] C-REACTIVE PROTEIN Collected: 09/11/2017 Status: F Source: [place] 12:04 PM [facility] REPOSITORY TYPE CODE TESTS RESULT OUT OF REFERENCE UNITS RANGE LAB CRP <0.9 mg/dL C-Reactive 0.4 Protein Performed By: #### CMP, CRP, WSR #### [facility] [address] [place], [place] [address] SED RATE WESTERGREN Collected: 09/11/2017 Status: F Source: [place] 12:04 PM [facility] REPOSITORY TYPE CODE TESTS RESULT OUT OF REFERENCE UNITS RANGE LAB WSR 0-20 mm/hr Sed Rate Westergren 8 Performed By: #### CMP, CRP, WSR #### [facility] [address] [place], [place] [address] CNOV Observed: 09/11/2017 Status: COMPLETED Source: [place] 11:55 AM [facility] REPOSITORY Office Visit (PULMMN) PALOMA CANNON ([id number]) 1990 F PTR Date Time Provider Department [...] triple positive with + lupus anticoagulant, + nkxc-[id number]-oiutaswfqyac, and + anti-cardiolipin antibodies. She has been [...] 120 capsuleRfl: 6 CONSULT TO PHYSICAL THERAPY [4316] Order #: [id number]: 1 XR CHEST 2V FRONTAL/LAT [[id number]] Order #: [id number] FUTURE COMP METABOLIC PANEL [SQCMP] Order #: [id number] FUTURE UA CHEMSTRIP ONLY [SQUA] Order #: [id number] FUTURE SED RATE WESTERGREN [SQWSR] Order #: [id number] FUTURE C-REACTIVE PROTEIN (CRP) [SQCRP] Order #: [id number] FUTURE predniSONE (DELTASONE) 5 mg tabletTake 1 [...] daily. FLUTICASONE 50 MCG/ACTUATION * Use 1 Atlantic in each nostril o* PANTOPRAZOLE 40 MG [...] AND DIFFERENTIAL Collected: 09/11/2017 Status: F Source: [place] 11:51 AM [facility] REPOSITORY TYPE CODE TESTS [...] Abs 0.36 Low Lymph LAB AMONO % Alexander% 4.4 LAB AAMONO <0.87 k/uL Abs 0.26 Alexander LAB AEOS % 1.8 Eosin% LAB AAEOS <0.46 k/uL Abs 0.11 Eosin LAB ABASO % Baso% 0.5 LAB AABASO <0.11 k/uL Abs 0.03 Baso LAB AUNRBC 0 /100 WBC NRBCs 0.0 LAB ABNRBC <0.01 k/uL <0.01 Absolute nRBC LAB DTYP DTYPE Auto Diff Performed By: #### CBCDIF #### [facility] [address] [place] [id number] PROGRESS Observed: 09/11/2017 Status: COMPLETED Source: [place] 11:09 [facility] REPOSITORY HNO ID: [id number] Author: Guillaume Alicea Service: (none) Author Type: [...] triple positive with + lupus anticoagulant, + qoms-x9-iyivuqqhgeoc, and + anti-cardiolipin antibodies. She has been [...] needed. Guillaume Alicea MD CT CHEST WO JAIRO Observed: 09/11/2017 Status: F Source: [place] 9:56 AM [facility] REPOSITORY * * *Final Report* * * DATE OF EXAM: Sep 11 2017 9:56AM [facility] 0541 - CT CHEST WO IVCON [...] nodular opacities probably infectious or aspiration induced. Glass Edger: MURTAZA Transcribe Date/Time: Sep 11 2017 11:15A Dictated by : KEREN BLANCO MD This examination was interpreted and the report reviewed and electronically signed by: KEREN BLANCO MD on Sep 11 2017 11:30AM EST [id number] PROGRESS Observed: 09/11/2017 Status: COMPLETED Source: [place] 9:47 AM [facility] REPOSITORY HNO ID: [id number] Author: ROXY Romero (Ct) Service: Radiology Author Type: Clinical Chute Operator Type: Progress Notes Filed: 09/11/2017 9:58 [...] TIME W/INR Collected: 09/11/2017 Status: F Source: [place] 8:05 AM [facility] REPOSITORY Order Comment: MEDOUT/PORT DRAW TYPE CODE TESTS RESULT OUT OF RANGE REFERENCE UNITS LAB L300.4150 11.7-14.9 SECONDS High PROTIME 22.5 LAB L300.4200 Normal INR 2.0 Performed By: #### L300.3900 #### [facility] [address], [id number] CBC W/DIFF, AUTOMATED Collected: 09/11/2017 Status: F Source: [place] 8:05 AM [facility] REPOSITORY Order Comment: Comments: ABIGAIL NARANJO [facility], FAX TO [phone] TYPE CODE TESTS RESULT OUT OF RANGE [...] LARGE PLTS. Performed By: #### L100.0100 #### [facility] [address] [place], [address] HOSP Observed: 09/11/2017 Status: COMPLETED Source: [place] 12:00 AM [facility] REPOSITORY [facility] [place] [place] ([id number]) 1990 F PTR Date Time Provider Department 09/11/17 DOMINIQUE WRIGHT [facility] During your visit today, we recorded the following information about you: Aleta Lamas Sec 09/11/2017 2:31 PM Signed Per orders of Dr.Koval chela luis. She is keeps the line for other reasons. Notified [facility] at [phone]. Spoke with Ursula. Aleta Lamas Sec Allergies [...] MA - Fully Assessed Reason for Visit: CoPat Stop [1684] Prescriptions as of 09/11/2017 Sig: CYCLOPHOSPHAMIDE [...] daily. FLUTICASONE 50 MCG/ACTUATION * Use 1 Atlantic in each nostril o* PANTOPRAZOLE 40 MG [...] keeps the line for other reasons. Notified [facility] at [phone]. Spoke with Ursula. Aleta Ventura Encounter Status:Closed by ALETA BENITES on 09/11/17 PROTHROMBIN TIME W/INR Collected: 09/08/2017 Status: F Source: [place] 8:00 AM [facility] REPOSITORY Order Comment: MEDOUT/PORT DRAW TYPE CODE TESTS RESULT OUT OF RANGE REFERENCE UNITS LAB L300.4150 11.7-14.9 SECONDS High PROTIME 17.6 LAB L300.4200 Normal INR 1.4 Performed By: #### L300.3900 #### [facility] [address] [place], [address] PT ED Observed: 09/06/2017 Status: COMPLETED Source: [place] 2:09 PM [facility] REPOSITORY HNO ID: [id number] Author: Denise SanchezRn) Timo Huffman RN Service: (none) Author Type: Registered Nurse Type: Patient Education Filed: 09/06/2017 2:20 PM Note Text: PATIENT EDUCATION TOPIC: PATIENT INFORMATION: Discharge PATIENT NAME: Paloma Cannon PATIENT LOCATION: [place] [address] READINESS TO LEARN COGNITIVE ABILITY: Alert and [...] CASE MANAGEM Observed: 09/06/2017 Status: COMPLETED Source: [place] 2:09 PM [facility] REPOSITORY HNO ID: [id number] Author: Dary SanchezRn) JEFF Jimenes Service: Care Management Author Type: Registered Nurse Type: Care Mgt Progress Note Filed: 09/06/2017 2:24 PM Note Text: CARE MANAGEMENT DISCHARGE NOTE SERVICE DATE: 09/06/2017 SERVICE TIME: 2:16 PM LOS: 12 days Admission Date: 08/25/2017 DISCHARGE ARRANGEMENT (list agency and phone number) Home, Home care and Home care pharmacy Provider: Apolinar [facility] - Servicing [place], [place] and Surrounding Areas [facility] will provide nursing. P: [phone]. F: [phone] CAREGIVER ASSESSMENT: Caregiver is ready, willing and [...] received today's dose. [facility] SOC 09/07/2017 am, [facility] will deliver IV abx to home tonight. [...] CASE MANAGEM Observed: 09/06/2017 Status: COMPLETED Source: [place] 1:55 PM [facility] REPOSITORY HNO ID: [id number] Author: Renetta Villanueva Service: Care Management Author Type: (none) Type: Care Mgt Progress Note Filed: 09/06/2017 1:55 PM Note Text: CARE MANAGEMENT PROGRESS NOTE SERVICE DATE: 09/06/2017 SERVICE TIME: 1:54 PM LOS: 12 days IM letter given to patient on 09/06/17. SIGNATURE: Kael Banksrical Assistant PATIENT NAME: Paloma Cannon DATE: September 06, 2017 TIME: 1:55 PM PAGER/CONTACT #: [phone] PLAN OF CARE Observed: 09/06/2017 Status: COMPLETED Source: [place] 1:46 PM [facility] REPOSITORY HNO ID: [id number] Author: Geraldine Lazar (Distribution Manager) Service: (none) Author Type: (none) Type: Plan of Care Filed: 09/06/2017 1:47 PM Note Text: Pharmacy Discharge Medication Service: This patient has elected to receive their discharge prescriptions through the [facility] Bedside Prescription Delivery program. The prescriptions are currently being processed. A follow-up note will be entered once the prescriptions have been filled and delivered to the patient. Please contact me with any questions or updates to the patient's discharge medications. Geraldine Lazar (Distribution Manager) DCT Contact Info: [id number] PROGRESS Observed: 09/06/2017 Status: COMPLETED Source: [place] 12:38 PM [facility] REPOSITORY HNO ID: [id number] Author: Ignacio Novak Service: Hospital Medicine Author Type: Physician Type: Progress Notes Filed: 09/06/2017 2:06 PM Note Text: Medicine [place] - Vipul Marie Progress Note PATIENT NAME: [...] ? Emelia Liu MD PGY-1 Internal Medicine [id number] September 06, 2017 12:39 PM [facility] STAFF PHYSICIAN NOTE OF PERSONAL INVOLVEMENT IN [...] as outpatient. SIGNATURE: Ignacio Novak MD PAGER: [phone] DATE of SERVICE: September 06, 2017 TIME of SERVICE: 2:05 PM CONSULT PROG Observed: 09/06/2017 Status: COMPLETED Source: [place] 11:07 AM [facility] REPOSITORY HNO ID: [id number] Author: Paulette Gooden (Elliott) Davonte Service: Vascular [...] mg daily check INR on Monday at [facility] w/results faxed to [facility] (they have a standing order) Monday will get another INR and CBC to monitor platelet counts SIGNATURE: Paulette Naranjo CNP PATIENT NAME: Paloma Aiken Davis DATE: September 06, 2017 TIME: 11:08 AM PAGER/CONTACT #: [phone] . PROCEDURE Observed: 09/06/2017 Status: COMPLETED Source: [place] 9:47 AM [facility] REPOSITORY [facility] ID: [id number] Author: Lisseth Claudio MD Service: Apheresis Author [...] Completed by Apheresis Nurse: Lou Juarez RN [facility] STAFF PHYSICIAN NOTE OF PERSONAL INVOLVEMENT IN [...] MD September 06, 2017 2:08 PM Pager: [phone] NURSING PROG Observed: 09/06/2017 Status: COMPLETED Source: [place] 7:43 AM [facility] REPOSITORY HNO ID: [id number] Author: Denise (Rn) Timo Huffman RN Service: (none) Author Type: Registered Nurse Type: Nursing Progress Note Filed: 09/06/2017 2:25 PM Note Text: Nursing Progress Note Topic of Note: Daily Note Paloma Cannon [id number] Patient sleeping in bed. Patient to have, [...] RN PROTIME Collected: 09/06/2017 Status: F Source: [place] 5:40 AM [facility] REPOSITORY TYPE CODE TESTS RESULT OUT OF RANGE REFERENCE UNITS LAB PSEC 9.7-13.0 sec High PT Sec 13.9 LAB INR 0.9-1.3 High PT INR 1.4 Result Comment: Vitamin K Antagonist (VKA) Therapeutic Range: INR 2 to 3 (Target INR of 2.5) Note: For patients treated with VKA drugs, such as warfarin, the [place] [employer]icians 2012 Guideline recommends [...] Chest 2012, 141:7S-47S Diogenes RA, et al. [facility] 2017, 70: 252-289 Performed By: #### PT, PTT, CK, CRET1, CBCDIF #### [facility] [address] [place], [place] [address] APTT Collected: 09/06/2017 Status: F Source: [place] 5:40 AM [facility] REPOSITORY TYPE CODE [...] laboratory APTT reagent in use throughout the [facility]. Performed By: #### PT, PTT, CK, CRET1, CBCDIF #### [facility] [address] [place], [place] [address] CK Collected: 09/06/2017 Status: F Source: [facility] 5:40 AM [facility] REPOSITORY TYPE CODE TESTS RESULT OUT OF RANGE REFERENCE UNITS LAB CK 42-196 U/L Low CK 15 Result Comment: Please note the updated, gender-specific reference range for this test (effective 06/23/2016). Performed By: #### PT, PTT, CK, CRET1, CBCDIF #### [facility] [address] [place], [place] [address] CREATININE Collected: 09/06/2017 Status: F Source: [place] 5:40 AM [facility] REPOSITORY TYPE CODE TESTS RESULT OUT [...] #### PT, PTT, CK, CRET1, CBCDIF #### [facility] [address] [place], [place] [address] CBC AND DIFFERENTIAL Collected: 09/06/2017 Status: F Source: [place] 5:40 AM [facility] REPOSITORY TYPE CODE TESTS RESULT OUT [...] Abs 0.35 Low Lymph LAB AMONO % Alexander% 8.9 LAB AAMONO <0.87 k/uL Abs 0.18 Alexander LAB AEOS % 5.4 Eosin% LAB AAEOS <0.46 k/uL Abs 0.11 Eosin LAB ABASO % Baso% 1.5 LAB AABASO <0.11 k/uL Abs 0.03 Baso LAB AUNRBC 0 /100 WBC NRBCs 0.0 LAB ABNRBC <0.01 k/uL <0.01 Absolute nRBC LAB DTYP DTYPE Auto Diff Performed By: #### PT, PTT, CK, CRET1, CBCDIF #### [facility] [address] [place], [place] [address] PROGRESS Observed: 09/05/2017 Status: COMPLETED Source: [place] 11:05 AM [facility] REPOSITORY HNO ID: [id number] Author: Ignacio Novak Service: Hospital Medicine Author Type: Physician Type: Progress Notes Filed: 09/05/2017 12:26 PM Note Text: Medicine [place] - Vipul Marie Progress Note PATIENT NAME: [...] Balance Intake/Output Summary (Last 24 hours) at 02/27/18 1105 Last data filed at 09/05/17 0400 [...] ? Emelia Liu MD PGY-1 Internal Medicine [id number] September 05, 2017 11:05 AM [facility] STAFF PHYSICIAN NOTE OF PERSONAL INVOLVEMENT IN [...] placement. ? SIGNATURE: Ignacio Novak MD PAGER: [phone] DATE of SERVICE: September 05, 2017 TIME of SERVICE: 12:25 PM THERAPY NT Observed: 09/05/2017 Status: COMPLETED Source: [place] 10:25 AM [facility] REPOSITORY HNO ID: [id number] Author: Alondra (Pt) Lokesh Service: Physical Therapy Author Type: Physical Therapist Type: Therapy (PT/OT/Speech/Resp) Filed: 09/05/2017 10:26 AM Note Text: PHYSICAL THERAPY MISSED VISIT SERVICE DATE: 09/05/2017 SERVICE TIME: 1024 to 1024 ROOM: [place] [address] Attempted Evaluation. Patient not seen due to pt evaluated on 08/30 by PT and 09/02 by OT. Per RN and CM pt is still IND and still has no skilled therapy needs. PT discontinuing services at this time. SIGNATURE: Alondra Campa PT PATIENT NAME: Paloma Cannon DATE: September 05, 2017 TIME: 10:25 AM PAGER/CONTACT #: [phone] BRIEF OP NOT Observed: 09/05/2017 Status: COMPLETED Source: [place] 9:16 AM [facility] REPOSITORY HNO ID: [id number] Author: Cara De Leon Service: Interventional Radiology Author Type: Resident Type: Brief Op Note Filed: 09/05/2017 9:19 AM Note Text: BRIEF OPERATIVE / PROCEDURE NOTE LOG ID: [id number] Surgery/Procedure Date: 09/05/2017 Incision/Procedure Start Time: 8:29 AM Incision Close/Procedure End Time: 9:10 AM Surgeon(s)/Proceduralist(s) and Drywall Sander(s): Surgeon(s) and Role: * Adis Munoz - [...] 05, 2017 TIME: 9:16 AM PAGER/CONTACT #: [phone] IR CENTRAL CATH Observed: 09/05/2017 Status: F Source: [place] PLACEMENT 9:10 AM [facility] REPOSITORY * * *Final Report* * * DATE OF EXAM: Sep 05 2017 9:10AM [facility] 8020 - IR CENTRAL CATH PLACEMENT / PROCEDURE REASON: APS (antiphospholipid syndrome) ([facility]) * * * * Physician Interpretation * * * * PROCEDURE: Tunneled central venous catheter placement and pheresis catheter placement. Procedural Personnel Attending(s): Adis Munoz M.D. Drywall Sander(s): Fellow(s): None Resident(s): Cara De Leon MD [...] purse string suture Sterile dressing(s) applied. The [facility] Central Line Insertion checklist, attached to [...] performed by the attending radiologist, with an pediatric physical therapy assistant. The attending radiologist performed the following [...] JUNCTION. THE CATHETERS MAY BE USED IMMEDIATELY. Glass Edger: MURTAZA Transcribe Date/Time: Sep 05 2017 9:42A Dictated by : ADIS MUNOZ MD This examination was interpreted and the report reviewed and electronically signed by: ADIS MUNOZ MD on Sep 05 2017 9:46AM EST [id number] IR DIALYSIS CATH Observed: 09/05/2017 Status: F Source: [place] 9:10 AM [facility] REPOSITORY * * *Final Report* * * DATE OF EXAM: Sep 05 2017 9:10AM [facility] 8021 - IR DIALYSIS CATH PLACEMENT / PROCEDURE REASON: APS (antiphospholipid syndrome) (HCC) * * * * Physician Interpretation * * * * PROCEDURE: Tunneled central venous catheter placement and pheresis catheter placement. Procedural Personnel Attending(s): Adis Munoz M.D. Drywall Sander(s): Fellow(s): None Resident(s): Cara De Leon MD [...] purse string suture Sterile dressing(s) applied. [facility] Central Line Insertion checklist, attached to [...] performed by the attending radiologist, with an pediatric physical therapy assistant. The attending radiologist performed the following [...] JUNCTION. THE CATHETERS MAY BE USED IMMEDIATELY. Glass Edger: [facility] Transcribe Date/Time: Sep 05 2017 9:42A Dictated by : ADIS MUNOZ MD This examination was interpreted and the report reviewed and electronically signed by: ADIS MUNOZ MD on Sep 05 2017 9:46AM EST [id number] PT ED Observed: 09/05/2017 Status: COMPLETED Source: [place] 8:09 AM [facility] REPOSITORY O ID: [id number] Author: Haydee (Rn) JEFF Domingo Service: Nursing [...] Signed By: Haydee Domingo RN In Department: [place] [id number] NURSING PROG Observed: 09/05/2017 Status: COMPLETED Source: [place] 8:03 AM [facility] REPOSITORY HNO ID: [id number] Author: Denise (Rn) Timo Huffman RN Service: (none) Author Type: Registered Nurse Type: Nursing Progress Note Filed: 09/05/2017 6:43 PM Note Text: Nursing Progress Note Topic of Note: Daily Note Paloma Aiken Davis [id number] Patient off the floor in for a line placement. No other issues [...] RN PROTIME Collected: 09/05/2017 Status: F Source: [place] 4:39 AM [facility] REPOSITORY TYPE CODE TESTS RESULT OUT OF RANGE REFERENCE UNITS LAB PSEC 9.7-13.0 sec High PT Sec 13.5 LAB INR 0.9-1.3 PT INR 1.3 Result Comment: Vitamin K Antagonist (VKA) Therapeutic Range: INR 2 to 3 (Target INR of 2.5) Note: For patients treated with VKA drugs, such as warfarin, the [employer] 2012 Guideline recommends [...] Chest 2012, 141:7S-47S Diogenes RA, et al. [facility] 2017, 70: 252-289 Performed By: #### PT, PTT, CRET1, MG1, PHOS, CBCDIF #### [facility] [address] [place], [place] [address] APTT Collected: 09/05/2017 Status: F Source: [place] 4:39 AM [facility] REPOSITORY TYPE CODE TESTS RESULT OUT [...] laboratory APTT reagent in use throughout the [facility]. Performed By: #### PT, PTT, CRET1, MG1, PHOS, CBCDIF #### [facility] [address] [place], [place] [address] CREATININE Collected: 09/05/2017 Status: F Source: [place] 4:39 AM [facility] REPOSITORY TYPE CODE TESTS RESULT OUT [...] PT, PTT, CRET1, MG1, PHOS, CBCDIF #### [facility] [address] [place], [place] [address] MAGNESIUM Collected: 09/05/2017 Status: F Source: [place] 4:39 AM [facility] REPOSITORY TYPE CODE TESTS RESULT OUT OF REFERENCE UNITS RANGE LAB MG 1.7-2.3 mg/dL Low Magnesium 1.6 Performed By: #### PT, PTT, CRET1, MG1, PHOS, CBCDIF #### [place] [address] PHOSPHORUS Collected: 09/05/2017 Status: F Source: [place] 4:39 AM [facility] REPOSITORY TYPE CODE TESTS RESULT OUT OF REFERENCE UNITS RANGE LAB PHOS 2.7-4.8 mg/dL Phosphorus 3.5 Performed By: #### PT, PTT, CRET1, MG1, PHOS, CBCDIF #### [address] [address] CBC AND DIFFERENTIAL Collected: 09/05/2017 Status: F Source: [place] 4:39 AM [facility] REPOSITORY TYPE CODE TESTS RESULT OUT [...] Abs Lymph Low 0.31 LAB AMONO % Alexander% 4.0 LAB AAMONO <0.87 k/uL Abs Alexander 0.07 LAB AEOS % Eosin% 1.0 LAB [...] PT, PTT, CRET1, MG1, PHOS, CBCDIF #### [facility] [address] [place] [id number] NURSING PROG Observed: 09/04/2017 Status: COMPLETED Source: [place] 6:29 PM [facility] REPOSITORY HNO ID: [id number] Author: Denise (Rn) Timo Huffman RN Service: (none) Author Type: Registered Nurse Type: Nursing Progress Note Filed: 09/04/2017 6:31 PM Note Text: Nursing Progress Note Topic of Note: Daily Note Paloma Herrerajessicamelissa Davis [id number] Patient to go to tomorrow for a samantha and tunneled dialysis catheter placement. No other issues noted at this time, will monitor. This note was completed by: Denise Huffman RN NUTRITION Observed: 09/04/2017 Status: COMPLETED Source: [place] 1:00 PM [facility] REPOSITORY HNO ID: [id number] Author: Anahi FlahertyTDevonte Mai Service: Nutrition Therapy Author Type: Protective Signal Installer Helper Type: Nutrition Filed: 09/04/2017 1:03 PM [...] September 04, 2017 TIME: 1:00 PM PAGER: [phone] PLAN OF CARE Observed: 09/04/2017 Status: COMPLETED Source: [place] 11:34 AM [facility] [place] REPOSITORY HNO ID: [id number] Author: Veronica Ryan Service: General Internal Medicine [...] PGY-3 PROGRESS Observed: 09/04/2017 Status: COMPLETED Source: [place] 11:33 AM [facility] [place] REPOSITORY HNO ID: [id number] Author: Ignacio Novak Service: Hospital Medicine Author Type: Physician Type: Progress Notes Filed: 09/04/2017 11:58 AM Note Text: [facility] [place] - [facility] [place] Progress Note PATIENT NAME: [...] ? Emelia Liu MD PGY-1 Internal Medicine [id number] September 04, 2017 11:34 AM [facility] STAFF PHYSICIAN NOTE OF PERSONAL INVOLVEMENT IN [...] line placement. SIGNATURE: Ignacio Novak MD PAGER: [phone] DATE of SERVICE: September 04, 2017 TIME of SERVICE: 11:55 AM CONSULT PROG Observed: 09/04/2017 Status: COMPLETED Source: [place] 11:29 AM [facility] REPOSITORY HNO ID: [id number] Author: Dominique Wright Service: Infectious Disease Author [...] CONSULT PROG Observed: 09/04/2017 Status: COMPLETED Source: [place] 11:23 AM [facility] REPOSITORY HNO ID: [id number] Author: Paulette Naranjo Service: Vascular Medicine Author [...] 04, 2017 TIME: 11:23 AM PAGER/CONTACT #: [phone] . CASE MANAGEM Observed: 09/04/2017 Status: COMPLETED Source: [place] 11:21 AM [facility] REPOSITORY HNO ID: [id number] Author: Hailey Cunningham Service: Care Management Author Type: Manager Reporting Type: Care Mgt Progress Note Filed: 09/04/2017 11:22 AM Note Text: CARE MANAGEMENT PROGRESS NOTE SERVICE DATE: 09/04/2017 SERVICE TIME:11:11 LOS: 10 days IM letter given to patient on 09/04/2017. SIGNATURE: Hailey Cunningham, PATIENT NAME: Paloma Cannon DATE: September 04, 2017 TIME: 11:21 AM PAGER/CONTACT #: [phone] NURSING PROG Observed: 09/04/2017 Status: COMPLETED Source: [place] 7:12 AM [facility] REPOSITORY O ID: [id number] Author: Sanchez (Rn) JEFF Walker Service: (none) Author Type: Registered Nurse Type: Nursing Progress Note Filed: 09/04/2017 7:15 AM Note Text: Nursing Progress Note Patient Name: Paloma Cannon Patient Location: [place] [id number] Pt left arm cleaned per protocol, Ultrasound [...] RN PROTIME Collected: 09/04/2017 Status: F Source: [place] 4:22 AM [facility] REPOSITORY TYPE CODE TESTS RESULT OUT OF RANGE REFERENCE UNITS LAB PSEC 9.7-13.0 sec High PT Sec 14.0 LAB INR 0.9-1.3 High PT INR 1.4 Result Comment: Vitamin K Antagonist (VKA) Therapeutic Range: INR 2 to 3 (Target INR of 2.5) Note: For patients treated with VKA drugs, such as warfarin, the [employer] 2012 Guideline recommends [...] Chest 2012, 141:7S-47S Diogenes RA, et al. [facility] 2017, 70: 252-289 Performed By: #### PT, PTT, CBCDIF #### [facility] [address] [place], [place] [address] APTT Collected: 09/04/2017 Status: F Source: [place] 4:22 [facility] REPOSITORY TYPE CODE TESTS RESULT OUT [...] laboratory APTT reagent in use throughout the [facility]. Performed By: #### PT, PTT, CBCDIF #### [facility] [address] [place], [place] [address] CBC AND DIFFERENTIAL Collected: 09/04/2017 Status: F Source: [place] 4:[address] [place] [address] REPOSITORY TYPE CODE TESTS RESULT OUT OF [...] Abs 0.35 Low Lymph LAB AMONO % Alexander% 10.2 LAB AAMONO <0.87 k/uL Abs 0.21 Alexander LAB AEOS % 4.4 Eosin% LAB AAEOS <0.46 k/uL Abs 0.09 Eosin LAB ABASO % Baso% 1.5 LAB AABASO <0.11 k/uL Abs 0.03 Baso LAB AUNRBC 0 /100 WBC NRBCs 0.0 LAB ABNRBC <0.01 k/uL <0.01 Absolute nRBC LAB DTYP DTYPE Auto Diff Performed By: #### PT, PTT, CBCDIF #### [facility] [address] [place], [place] [address] HOSP Observed: 09/04/2017 Status: COMPLETED Source: [place] 12:00 AM [facility] REPOSITORY Patient Update (HSIDMN) PALOMA MARTINEZ ([id number]) 1990 F PTR Date Time Provider Department [...] Fully Assessed Reason for Visit: CoPat Start [1679] Prescriptions as of 09/04/2017 Sig: X CYCLOPHOSPHAMIDE [...] daily. FLUTICASONE 50 MCG/ACTUATION * Use 1 [place] in each nostril o* X WARFARIN 5 [...] 09/04/17 PROGRESS Observed: 09/03/2017 Status: COMPLETED Source: [place] 11:43 AM [facility] REPOSITORY O ID: [id number] Author: Gael Simmons Service: General Internal Medicine Author Type: Physician Type: Progress Notes Filed: 09/03/2017 1:35 PM Note Text: [facility] - [facility] Progress Note PATIENT NAME: Paloma Cannon Interval [...] Ryan MD Internal Medicine PGY-3 Pager: v [phone] 11:45 AM 09/03/2017 [facility] STAFF PHYSICIAN NOTE OF PERSONAL INVOLVEMENT IN CARE I have reviewed the documentation obtained and documented by the team healthcare provider (fellow, resident, nurse practitioner or physician pediatric physical therapy assistant) and I personally participated in the fernandes components. I have discussed the case and management of the patient's care and the note has been revised / addended to reflect my direct input. Continues to do well, 2.23 c/s NGTD x2 plt ct has stabilized Plan is for new exchange line next week Gael Simmons MD [facility] Medicine Staff PAGER: [phone] DATE of Service: 09/03/2017 TIME of Service: 1:35 PM PROTIME Collected: 09/03/2017 Status: F Source: [place] 5:50 AM [facility] REPOSITORY TYPE CODE TESTS RESULT OUT OF RANGE REFERENCE UNITS LAB PSEC 9.7-13.0 sec High PT Sec 15.9 LAB INR 0.9-1.3 High PT INR 1.6 Result Comment: Vitamin K Antagonist (VKA) Therapeutic Range: INR 2 to 3 (Target INR of 2.5) Note: For patients treated with VKA drugs, such as warfarin, the [employer] 2012 Guideline recommends [...] Chest 2012, 141:7S-47S Diogenes RA, et al. [facility] 2017, 70: 252-289 Performed By: #### PT, PTT, CBCDIF #### [facility] [address], [place] [address] APTT Collected: 09/03/2017 Status: F Source: [place] 5:50 AM [facility] REPOSITORY TYPE CODE TESTS RESULT OUT [...] laboratory APTT reagent in use throughout the [facility]. Performed By: #### PT, PTT, CBCDIF #### [facility] [address] [place], [place] [address] CBC AND DIFFERENTIAL Collected: 09/03/2017 Status: F Source: [place] 5:50 AM [facility] REPOSITORY TYPE CODE TESTS [...] Abs Lymph Low 0.35 LAB AMONO % Alexander% 5.0 LAB AAMONO <0.87 k/uL Abs Alexander 0.09 LAB AEOS % Eosin% 3.0 LAB [...] Performed By: #### PT, PTT, CBCDIF #### [facility] [address] [place], [place] [address] NURSING PROG Observed: 09/02/2017 Status: COMPLETED Source: [place] 3:41 PM [facility] REPOSITORY HNO ID: [id number] Author: Shelia SanchezRn) JEFF Oviedo Service: (none) Author Type: Registered Nurse Type: Nursing Progress Note Filed: 09/02/2017 3:42 PM Note Text: Nursing Progress Note Patient Name: Paloma Cannon Patient Location: [address] Daily Note: 1540- Patient resting in bed, call light in reach. This note was completed by: Shelia Oviedo RN THERAPY NT Observed: 09/02/2017 Status: COMPLETED Source: [place] 10:38 AM [facility] REPOSITORY HNO ID: [id number] Author: Mitch SanchezOtr/Carlos Wallis Service: Occupational Therapy Author Type: Occupational Therapist Type: Therapy (PT/OT/Speech/Resp) Filed: 09/02/2017 10:41 AM Note Text: Occupational Therapy Evaluation SERVICE DATE: 09/02/2017 SERVICE TIME: 1000 to 1030 ROOM: [place] [address] Recommended Discharge Disposition: Home Recommended Discharge Disposition [...] No Skilled Need Interventions Provided: Evaluation;Therapeutic Exercise (95351) $ Evaluation-Low (77615) Billed Units: 1 unit Therapeutic Exercise (06299) Treatment Minutes: 15 1 unit Skilled Intervention(s): [...] Lives With: Significant Other Assistance Available: PRN;multimedia coordinator Entry To Home: No Stairs Number Of [...] September 02, 2017 TIME: 10:38 AM PAGER: [phone] PROGRESS Observed: 09/02/2017 Status: COMPLETED Source: [place] 10:20 [facility] REPOSITORY HNO ID: [id number] Author: Gael Simmons Service: Hospital Medicine Author Type: Physician Type: Progress Notes Filed: 09/02/2017 10:45 AM Note Text: [facility] [place] - [facility] Progress Note PATIENT NAME: [...] staff, Dr Simmons SIGNATURE: [place] [id number] DATE of SERVICE: September 02, 2017 TIME of SERVICE: 10:20 AM [facility] STAFF PHYSICIAN NOTE OF PERSONAL INVOLVEMENT IN CARE I have reviewed the documentation obtained and documented by the team healthcare provider (fellow, resident, nurse practitioner or physician pediatric physical therapy assistant) and I personally participated in the fernandes components. I have discussed the case and management of the patient's care and the note has been revised / addended to reflect my direct input. Clinically improving. No loose stools past 24 hours, joint pain controlled. Plan remains the same. Gael Simmons MD [facility] Medicine Staff PAGER: [phone] DATE of Service: 09/02/2017 TIME of Service: 10:45 AM PROTIME Collected: 09/02/2017 Status: F Source: [place] 5:15 AM [facility] [place] REPOSITORY TYPE CODE TESTS RESULT OUT OF RANGE REFERENCE UNITS LAB PSEC 9.7-13.0 sec High PT Sec 17.2 LAB INR 0.9-1.3 High PT INR 1.7 Result Comment: Vitamin K Antagonist (VKA) Therapeutic Range: INR 2 to 3 (Target INR of 2.5) Note: For patients treated with VKA drugs, such as warfarin, the [employer] 2012 Guideline recommends [...] Chest 2012, 141:7S-47S Diogenes RESENDIZ et al. [facility] 2017, 70: 252-289 Performed By: #### PT, PTT, MG1, PHOS, CBCDIF #### [place] [id number] [place], [place] [address] APTT Collected: 09/02/2017 Status: F Source: [place] 5:15 AM [facility] REPOSITORY TYPE CODE TESTS RESULT OUT [...] laboratory APTT reagent in use throughout the [facility]. Performed By: #### PT, PTT, MG1, PHOS, CBCDIF #### [place] [address] MAGNESIUM Collected: 09/02/2017 Status: F Source: [place] 5:15 AM [facility] REPOSITORY TYPE CODE TESTS RESULT OUT OF REFERENCE UNITS RANGE LAB MG 1.7-2.3 mg/dL Magnesium 1.9 Performed By: #### PT, PTT, MG1, PHOS, CBCDIF #### [place] [id number] [place] [address] PHOSPHORUS Collected: 09/02/2017 Status: F Source: [place] 5:15 AM [facility] REPOSITORY TYPE CODE TESTS RESULT OUT OF REFERENCE UNITS RANGE LAB PHOS 2.7-4.8 mg/dL Phosphorus 3.5 Performed By: #### PT, PTT, MG1, PHOS, CBCDIF #### [place] [address] [place], [place] [address] CBC AND DIFFERENTIAL Collected: 09/02/2017 Status: F Source: [place] 5:15 AM [facility] REPOSITORY TYPE CODE TESTS RESULT OUT [...] Abs Lymph Low 0.11 LAB AMONO % Alexander% 3.8 LAB AAMONO <0.87 k/uL Abs Alexander 0.06 LAB AEOS % Eosin% 3.3 LAB [...] #### PT, PTT, MG1, PHOS, CBCDIF #### [facility] [address] [place], [place] [address] CONSULT PROG Observed: 09/01/2017 Status: COMPLETED Source: [place] 1:26 PM [facility] REPOSITORY HNO ID: [id number] Author: Dominique Wright Service: Infectious Disease Author [...] p.m. PROGRESS Observed: 09/01/2017 Status: COMPLETED Source: [place] 11:15 AM [facility] REPOSITORY HNO ID: [id number] Author: Gael Simmons Service: Hospital Medicine Author Type: Physician Type: Progress Notes Filed: 09/01/2017 11:59 AM Note Text: [facility] - [place] Progress Note PATIENT NAME: [...] staff, Dr Simmons SIGNATURE: [place] [id number] DATE of SERVICE: September 01, 2017 TIME of SERVICE: 11:19 AM [facility] STAFF PHYSICIAN NOTE OF PERSONAL INVOLVEMENT IN CARE I have reviewed the documentation obtained and documented by the team healthcare provider (fellow, resident, nurse practitioner or physician pediatric physical therapy assistant) and I personally participated in the fernandes components. I have discussed the case and management of the patient's care and the note has been revised / addended to reflect my direct input. Jesus Alberto catheter out and she feels better Counts continue to fall Cont current abx ? New TAC early next week Gael Simmons MD [facility] Medicine Staff PAGER: [phone] DATE of Service: 09/01/2017 TIME of Service: 11:58 AM CASE MANAGEM Observed: 09/01/2017 Status: COMPLETED Source: [place] 9:10 AM [facility] REPOSITORY HNO ID: [id number] Author: Dary (Rn) JEFF Jimenes Service: Care [...] DC. TCC/SW to follow For W/E CM p#[id number] SIGNATURE: Dary Jimenes RN PATIENT NAME: Paloma Cannon DATE: September 01, 2017 TIME: 9:10 AM PAGER/CONTACT #: [phone] Observed: 09/01/2017 Status: F Source: [place] BLOOD CULTURE 8:01 AM [facility] REPOSITORY Culture Result - No growth 5 days Performed By: #### BLCUL #### [facility] [address] [place], [place] [address] Observed: 09/01/2017 Status: F Source: [place] BLOOD CULTURE 7:49 AM [facility] REPOSITORY Culture Result - No growth 5 days Performed By: #### BLCUL #### [facility] [address] [place], [place] [address] PROTIME Collected: 09/01/2017 Status: F Source: [place] 5:15 AM [facility] REPOSITORY TYPE CODE TESTS RESULT OUT OF RANGE REFERENCE UNITS LAB PSEC 9.7-13.0 sec High PT Sec 17.5 LAB INR 0.9-1.3 High PT INR 1.8 Result Comment: Vitamin K Antagonist (VKA) Therapeutic Range: INR 2 to 3 (Target INR of 2.5) Note: For patients treated with VKA drugs, such as warfarin, the [place] [employer] 2012 Guideline recommends [...] 2.5 to 3.5 (target INR of 3). Reidyatt GH, et al. Chest 2012, 141:7S-47S Diogenes RA, et al. [facility] 2017, 70: 252-289 Performed By: #### PT, PTT, CBCDIF #### [facility] [address] [place], [place] [address] APTT Collected: 09/01/2017 Status: F Source: [place] 5:15 AM [facility] REPOSITORY TYPE CODE TESTS RESULT OUT [...] laboratory APTT reagent in use throughout the [facility]. Performed By: #### PT, PTT, CBCDIF #### [facility] [address], [place] [address] CBC AND DIFFERENTIAL Collected: 09/01/2017 Status: F Source: [place] 5:15 AM [facility] [place] REPOSITORY TYPE CODE TESTS RESULT OUT OF [...] Abs Lymph Low 0.08 LAB AMONO % Alexander% 13.0 LAB AAMONO <0.87 k/uL Abs Alexander 0.19 LAB AEOS % Eosin% 6.1 LAB AAEOS <0.46 k/uL Abs Eosin 0.09 LAB ABASO % Baso% 2.6 LAB AABASO <0.11 k/uL Abs Baso 0.04 LAB AMETA % Austin% 0.4 LAB ANIIMI Anisocytosis Present LAB OVAIMI Ovalocytes Few LAB POLIMI Polychromasia Slight LAB RCFIMI RBC Fragments Few LAB PLTEST Platelet Estimate Platelet estimate decreased LAB DTYP DTYPE Manual Diff Performed By: #### PT, PTT, CBCDIF #### [facility] [address] [place], [place] [address] BRIEF OP NOT Observed: 08/31/2017 Status: COMPLETED Source: [place] 7:42 PM [facility] REPOSITORY HNO ID: [id number] Author: Nicholas Gee III Service: Radiology Author [...] patient was brought to room 25, IR. [place] protocol performed. Subsequently, Removal of an indwelling [...] 31, 2017 TIME: 7:42 PM PAGER/CONTACT #: [phone] IR CENTRAL LINE Observed: 08/31/2017 Status: F Source: [place] 7:16 PM [facility] REPOSITORY * * *Final Report* * * DATE OF EXAM: Aug 31 2017 7:16PM [facility] 0746 - IR CENTRAL LINE REMOVAL [...] Microbiology ATTENDING RADIOLOGIST: Nicholas Gee III, M.D. CROWN ATTACHER: None The procedure was performed by the: attending radiologist, without an pediatric physical therapy assistant. The attending radiologist performed the following procedural activities: Entire procedure IMPRESSION: SUCCESSFUL REMOVAL OF TUNNELED CENTRAL VENOUS CATHETER. Glass Edger: MURTAZA Transcribe Date/Time: Sep 06 2017 12:59A Dictated by : NICHOLAS GEE III, MD This examination was interpreted and the report reviewed and electronically signed by: NICHOLAS GEE III, MD on Sep 06 2017 1:00AM EST Observed: 08/31/2017 Status: F Source: [place] CATH TIP CULTURE 7:00 PM [facility] REPOSITORY Sp. Request/Comment: - Specimen received [...] ABNORMAL ALERT Performed By: #### CTCUL #### [facility] [address] [place] [id number] HISTORY PHYSICAL Observed: 08/31/2017 Status: COMPLETED Source: [place] 6:38 PM [facility] REPOSITORY HNO ID: [id number] Author: Nicholas Gee III Service: Radiology Author [...] August 31, 2017 TIME: 6:38 PM PAGER: [phone] PT ED Observed: 08/31/2017 Status: COMPLETED Source: [place] 6:37 PM [facility] REPOSITORY HNO ID: [id number] Author: Eugenia SanchezRn) JEFF Hart Service: Nursing Author Type: Registered Nurse Type: Patient Education Filed: 08/31/2017 6:40 PM Note Text: PATIENT EDUCATION TOPIC: PROCEDURE / SURGERY: Pre Procedure Teaching: Logistics Protocols Complication Prevention Surgical Safety Principles PATIENT NAME: Paloma Cannon PATIENT LOCATION: [place] [facility] READINESS TO LEARN COGNITIVE ABILITY: Alert [...] NURSING PROG Observed: 08/31/2017 Status: COMPLETED Source: [place] 1:00 PM [facility] REPOSITORY HNO ID: [id number] Author: Lourdes SanchezRn) JEFF Stallworth Service: (none) Author Type: Registered Nurse Type: Nursing Progress Note Filed: 08/31/2017 5:04 PM Note Text: Nursing Progress Note Patient Name: Paloma Cannon Patient Location: [facility] Daily Note: 1230 report given to [...] CONSULT PROG Observed: 08/31/2017 Status: COMPLETED Source: [place] 12:50 PM [facility] [place] REPOSITORY HNO ID: [id number] Author: Dominique Wright Service: Infectious Disease Author [...] p.m. PROGRESS Observed: 08/31/2017 Status: COMPLETED Source: [place] 12:45 PM [facility] [place] REPOSITORY O ID: [id number] Author: Gael Simmons Service: Hospital Medicine Author Type: Physician Type: Progress Notes Filed: 08/31/2017 1:05 PM Note Text: Medicine [place] - Vipul Marie Progress Note PATIENT NAME: [...] - Bival vs Fondaparinux - Consult to [facility] medicine ? Chronic Problems: 1. Anti-phospholipid Syndrome 2. Hypertension 3. HFpEF - f/u ECHO 4. Heparin-induced Thrombocytopenia 5. 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 GERD ? Other: Diet: Regular GI AND DVT Prophylaxis: warfarin PT/OT Disposition Recs: N/A Code Status: Full code ? Case to be discussed with staff, Dr Simmons SIGNATURE: [place] [id number] DATE of SERVICE: August 31, 2017 TIME of SERVICE: 12:46 PM [facility] STAFF PHYSICIAN NOTE OF PERSONAL INVOLVEMENT IN CARE I have reviewed the documentation obtained and documented by the team healthcare provider (fellow, resident, nurse practitioner or physician pediatric physical therapy assistant) and I personally participated in the fernandes components. I have discussed the case and management of the patient's care and the note has been revised / addended to reflect my direct input. Jesus Alberto c/s positive, will need to be removed - we will schedule. Cont Dapto / Flagyl Appreciate [facility] med input, likely fondarinux SQ low dose for now. No further evidence of DAH Some joint pain she says occurred with BSI in the past Gael Simmons MD [facility] Medicine Staff PAGER: [phone] DATE of Service: 08/31/2017 TIME of Service: 1:03 PM CONSULT Observed: 08/31/2017 Status: COMPLETED Source: [place] 12:00 PM [facility] REPOSITORY HNO ID: [id number] Author: Darcie Choi MD Service: Vascular Medicine Author Type: Physician Type: Consults Filed: 08/31/2017 7:33 PM Note Text: VASCULAR MEDICINE INITIAL CONSULT Requesting Provider: IM Opinion/advice regarding: subtherapeutic INR, APS, remote hx of HIT Subjective CHIEF COMPLAINT: n/v fever, diarrhea HPI: This is a 27 year old female well known to [facility] service for a hx of APS [...] (FLONASE) 50 mcg/actuation nasal spray Use 1 Atlantic in each nostril once daily. warfarin (COUMADIN) [...] twice daily as needed. Miscellaneous [facility] package 30 - 40 mmHg pressure [...] 31, 2017 TIME: 12:01 PM PAGER/CONTACT #: [phone] . Staff addendum: I interviewed and examined Paloma Cannon, and reviewed and confirmed the findings of the CITY PLANT SUPERVISOR with additional comments below. The assessment and plan was formulated in discussion with the patient and CITY PLANT SUPERVISOR, and is also outlined below. Pleasant 27yo [...] Staff PROTIME Collected: 08/31/2017 Status: F Source: [place] 4:35 AM [facility] [place] REPOSITORY TYPE CODE TESTS RESULT OUT OF RANGE REFERENCE UNITS LAB PSEC 9.7-13.0 sec High PT Sec 18.2 LAB INR 0.9-1.3 High PT INR 1.8 Result Comment: Vitamin K Antagonist (VKA) Therapeutic Range: INR 2 to 3 (Target INR of 2.5) Note: For patients treated with VKA drugs, such as warfarin, the [place] [employer]icians 2012 Guideline recommends [...] Chest 2012, 141:7S-47S Diogenes RESENDIZ et al. [facility] 2017, 70: 252-289 Performed By: #### PT, CBCDIF #### [facility] [address] [place], [place] [address] CBC AND DIFFERENTIAL Collected: 08/31/2017 Status: F Source: [place] 4:35 AM [facility] REPOSITORY TYPE CODE TESTS [...] Abs Lymph 0.07 Low LAB AMONO % Alexander% 4.3 LAB AAMONO <0.87 k/uL Abs Alexander 0.08 LAB AEOS % Eosin% 5.6 LAB [...] Diff Performed By: #### PT, CBCDIF #### [facility] [address] [place], [place] [address] Observed: 08/30/2017 Status: F Source: [place] BLOOD CULTURE 4:57 PM [facility] REPOSITORY Sp. Request/Comment: - TAKEN FROM [place] Culture Result - Enterococcus faecalis Cephalosporins, clindamycin, and TMP-SMX are not effective for the treatment of enterococcal infections. --> ABNORMAL ALERT Refer to specimen collected on --&gt ; ABNORMAL ALERT 08/30/17 AT 1654 ([id number]) --> ABNORMAL ALERT Staphylococcus epidermidis --> ABNORMAL [...] 2 F Performed By: #### BLCUL #### [facility] [address] [place] [address] Observed: 08/30/2017 Status: F Source: [place] BLOOD CULTURE 4:54 PM [facility] REPOSITORY Sp. Request/Comment: - FROM LEFT [...] also susceptible. Performed By: #### BLCUL #### [facility] [address] [place], [place] [address] IR CENTRAL LINE Observed: 08/30/2017 Status: F Source: [place] 2:26 PM [facility] [place] REPOSITORY * * *Final Report* * * DATE OF EXAM: Aug 30 2017 2:26PM [facility] 0746 - IR CENTRAL LINE REMOVAL [...] of Removed Specimens: 0: ATTENDING RADIOLOGIST: n/a CROWN ATTACHER: None The procedure was performed by the: Machelle Joshi PA-C IMPRESSION: SUCCESSFUL REMOVAL OF TUNNELED CENTRAL VENOUS CATHETER. Glass Edger: MURTAZA Transcribe Date/Time: Aug 30 2017 4:50P Dictated by : MACHELLE JOHSI PA-C This examination was interpreted and the report reviewed and electronically signed by: MACHELLE JOSHI PA-C on Aug 30 2017 4:53PM EST NURSING PROG Observed: 08/30/2017 Status: COMPLETED Source: [place] 2:18 PM [facility] REPOSITORY [facility] ID: [id number] Author: Lourdes (Rn) JEFF Stallworth Service: (none) Author Type: Registered Nurse Type: Nursing Progress Note Filed: 08/30/2017 6:24 PM Note Text: Nursing Progress Note Patient Name: Paloma Cannon Patient Location: G081 023/[id number] Daily Note: A blood culture ordered for pt, consulted TAMI Palmer, advised to call Hemoc assigned to pt- per in patient notes, no hemoc assigned. 1100 hrs - pt off floor to IR. Dr Ali paged and notified that blood culture not done yet, needs an order for what to lock catheter. 1404 hrs - pt back in the room, no bleeding noted in post SAMANTHA site. 700 hrs blood culture from jesus alberto cath collected by apharesis nurse sent This note was completed by: Lourdes Stallworth RN BRIEF OP NOT Observed: 08/30/2017 Status: COMPLETED Source: [place] 1:48 PM [facility] REPOSITORY HNO ID: [id number] Author: Machelle Joshi Service: Radiology Author Type: Physician Drywall Sander Type: Brief Op Note Filed: 08/30/2017 1:54 PM Note Text: BRIEF OP NOTE LOG ID: [id number] Surgery/Procedure Date: 08/30/2017 Incision/Procedure Start Time: 1325 Incision Close/Procedure End Time: 1335 Surgeon(s)/Proceduralist(s) and Drywall Sander(s): Machelle Joshi PA-C Procedure(s): Removal of samantha [...] SIGNATURE: Machelle Joshi PA-C PATIENT NAME: Paloma Aiken Davis DATE: August 30, 2017 TIME: 1:48 PM PAGER/CONTACT #: [phone] PT ED Observed: 08/30/2017 Status: COMPLETED Source: [place] 1:46 PM [facility] REPOSITORY HNO ID: [id number] Author: Daysi Grullon (Pharmacist) Service: Pharmacy Author [...] with Physician: name: Dr. Guillaume Fuller' office ([facility] physician) with his CITY PLANT SUPERVISOR Magdalena Indication for warfarin: deep vein thrombosis (DVT) Target INR range: 2.0 - 3.0 (Target 2.5) Patient received full warfarin education (Please see previously documented note on 08/27/17). DAYSI GRULLON, PHARMACIST [id number] HISTORY PHYSICAL Observed: 08/30/2017 Status: COMPLETED Source: [place] 1:17 PM [facility] REPOSITORY HNO ID: [id number] Author: Machelle Joshi Service: Radiology Author Type: Physician Drywall Sander Type: HANDP Filed: 08/30/2017 1:18 PM Note [...] August 30, 2017 TIME: 1:17 PM PAGER: [phone] CONSULT PROG Observed: 08/30/2017 Status: COMPLETED Source: [place] 12:33 PM [facility] REPOSITORY HNO ID: [id number] Author: Dominique Wright Service: Infectious Disease Author [...] THERAPY NT Observed: 08/30/2017 Status: COMPLETED Source: [place] 12:22 PM [facility] REPOSITORY HNO ID: [id number] Author: Alondra (Pt) Lokesh Service: Physical Therapy Author Type: Physical Therapist Type: Therapy (PT/OT/Speech/Resp) Filed: 08/30/2017 12:26 PM Note Text: Physical Therapy Evaluation SERVICE DATE: 08/30/2017 SERVICE TIME: 1151 to 1215 ROOM: [place] [address] Recommended Discharge Disposition: Home Recommended Discharge Equipment: [...] No Skilled Need Interventions Provided: Evaluation;Gait Training (48875) $ Evaluation-Low (48378) Billed Units: 1 unit Gait Training (51125) Treatment Minutes: 8 1 unit Skilled Intervention(s): [...] Lives With: Significant Other Assistance Available: PRN;multimedia coordinator Entry To Home: No Stairs Number Of [...] 30, 2017 TIME: 12:22 PM PAGER/CONTACT #: [phone] PROGRESS Observed: 08/30/2017 Status: COMPLETED Source: [place] 12:16 PM [facility] REPOSITORY O ID: [id number] Author: Gael Simmons Service: Hospital Medicine Author Type: Physician Type: Progress Notes Filed: 08/30/2017 2:21 PM Note Text: [facility] [place] - Vipul Marie Progress Note PATIENT NAME: [...] bacteremia 3 line cultures positive for MRSE (/ x2/ and 07/11 x2/) Needs coverage for [...] staff, Dr Simmons SIGNATURE: [place] [id number] DATE of SERVICE: August 30, 2017 TIME of SERVICE: 12:16 PM [facility] STAFF PHYSICIAN NOTE OF PERSONAL INVOLVEMENT IN CARE I have reviewed the documentation obtained and documented by the team healthcare provider (fellow, resident, nurse practitioner or physician pediatric physical therapy assistant) and I personally participated in the fernandes components. I have discussed the case and management of the patient's care and the note has been revised / addended to reflect my direct input. Samantha now out. Diarrhea resolving Need c/s from Basil Washburn ID help Hemoptysis has resolved as well Gael Simmons MD FACP [facility] Medicine Staff PAGER: [phone] DATE of Service: 08/30/2017 TIME of Service: 2:20 PM NUTRITION Observed: 08/30/2017 Status: COMPLETED Source: [place] 10:34 AM [facility] REPOSITORY HNO ID: [id number] Author: Elsa Germain Service: Nutrition Therapy Author [...] 2 units SIGNATURE: Elsa Germain, MS RDN-AP [facility] PATIENT NAME: Paloma Cannon DATE: August 30, 2017 TIME: 10:34 AM PAGER: [phone] PROTIME Collected: 08/30/2017 Status: F Source: [place] 3:23 AM [facility] REPOSITORY TYPE CODE TESTS RESULT OUT OF RANGE REFERENCE UNITS LAB PSEC 9.7-13.0 sec High PT Sec 22.4 LAB INR 0.9-1.3 High PT INR 2.3 Result Comment: Vitamin K Antagonist (VKA) Therapeutic Range: INR 2 to 3 (Target INR of 2.5) Note: For patients treated with VKA drugs, such as warfarin, the [place] [employer] Physicians 2012 Guideline recommends [...] Chest 2012, 141:7S-47S Diogenes RESENDIZ et al. [facility] 2017, 70: 252-289 Performed By: #### PT, CK, CMP, MG1, PHOS, CBCDIF #### [facility] [address] [place] [address] CK Collected: 08/30/2017 Status: F Source: [facility] 3:23 AM MAIN [place] REPOSITORY TYPE CODE TESTS RESULT OUT OF RANGE REFERENCE UNITS LAB CK 42-196 U/L Low CK <7 Result Comment: Result rechecked. Performed By: #### PT, CK, CMP, MG1, PHOS, CBCDIF #### [facility] [address] [place], [place] [address] COMP METABOLIC PANEL Collected: 08/30/2017 Status: F Source: [place] 3:23 AM [facility] [place] REPOSITORY TYPE CODE TESTS RESULT OUT OF [...] mg/dL Low Glucose 70 Result Comment: The [place] Diabetes Association (ADA) provides guidance for cutoff [...] Standards of Medical Care in Diabetes 2016, [place] [employer] Association. Diabetes Care. 2016.39(Suppl 1). LAB [...] has been calibrated to be traceable to IDND. An eGFR <60 mL/min/1.73m2 for >3 months is consistent with chronic kidney disease. Refer to KDOQI guidelines for clinical interpretation. In patients with unstable renal function, e.g. those with acute kidney injury, the eGFR may not accurately reflect actual GFR. Performed By: #### PT, CK, CMP, MG1, PHOS, CBCDIF #### [facility] [address] [place], [place] [address] MAGNESIUM Collected: 08/30/2017 Status: F Source: [place] 3:23 AM [facility] REPOSITORY TYPE CODE TESTS RESULT OUT OF REFERENCE UNITS RANGE LAB MG 1.7-2.3 mg/dL Magnesium 2.0 Performed By: #### PT, CK, CMP, MG1, PHOS, CBCDIF #### [facility] [address] [place], [place] [id number] PHOSPHORUS Collected: 08/30/2017 Status: F Source: [place] 3:23 AM [facility] REPOSITORY TYPE CODE TESTS RESULT OUT OF REFERENCE UNITS RANGE LAB PHOS 2.7-4.8 mg/dL Low Phosphorus 2.5 Performed By: #### PT, CK, CMP, MG1, PHOS, CBCDIF #### [facility] [address] [place], [place] [address] CBC AND DIFFERENTIAL Collected: 08/30/2017 Status: F Source: [place] 3:23 [facility] REPOSITORY TYPE CODE TESTS RESULT OUT [...] Abs Lymph Low 0.12 LAB AMONO % Alexander% 5.8 LAB AAMONO <0.87 k/uL Abs Alexander 0.08 LAB AEOS % Eosin% 6.2 LAB [...] PT, CK, CMP, MG1, PHOS, CBCDIF #### [facility] [address] [place], [place] [address] CNDS Observed: 08/29/2017 Status: COMPLETED Source: [place] 4:25 PM [facility] REPOSITORY HNO ID: [id number] Author: Ignacio Novak Service: General Internal Medicine [...] found to be positive for lupus anticoagulant, cajp-l8-hcqaocidvdph, and anti-cardiolipin antibodies for which she gets [...] - last day 09/09/2017 ?? 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 - Hold cyclophosohamide .- needs repeat CBC to monitor plts particularly ? 4.) CAPRICE (resolved) Elevated Cr (baseline about 1), UA was clean with no signs of infection, FENa < 1%, likely pre-renal from dehydration /2 diarrhea with hypotension from bacteremia Plan:? - [...] on 09/08/2017. Will be followed up by [facility] med CYTOTECHNOLOGIST SUPERVISOR. 6) HFpEF Med list included: hydralazine, carvedilol, [...] (FLONASE) 50 mcg/actuation nasal spray Use 1 Atlantic in each nostril once daily. Historical Med [...] RCTMN RADIO (MAIN 09/11/2017 11:55 AM Guillaume Deanne PULMMÁngela PULM A/E/R/G 09/18/2017 12:00 PM [facility] [place] 09/19/2017 2:45 PM Dominique Wright INFDMN INFD (MAIN - 09/27/2017 12:30 PM [facility] [place] 10/02/2017 12:30 PM [facility] 10/16/2017 12:30 PM [facility] [place] 10/30/2017 12:30 PM [facility] [place] Veronica Ryan MD Internal Medicine PGY-3 Pager:v: [phone] 3:42 PM 09/06/2017 [facility] STAFF PHYSICIAN NOTE OF PERSONAL INVOLVEMENT IN [...] this patient SIGNATURE: Ignacio Novak MD PAGER: [phone] DATE of SERVICE: September 07, 2017 TIME of SERVICE: 1:33 PM Observed: 08/29/2017 Status: F Source: [place] BLOOD CULTURE 3:36 PM [facility] REPOSITORY Culture Result - No growth 5 days Performed By: #### BLCUL #### [facility] [address] [place] [id number] CONSULT PROG Observed: 08/29/2017 Status: COMPLETED Source: [place] 12:16 PM [facility] REPOSITORY HNO ID: [id number] Author: Dominique Wright Service: Infectious Disease Author [...] 1V FRONTAL Observed: 08/29/2017 Status: F Source: [facility] 11:39 AM [facility] REPOSITORY * * *Final Report* * [...] silhouette: The cardiomediastinal silhouette is unchanged. Other: Glass Edger: MURTAZA Transcribe Date/Time: Aug 29 2017 2:26P Dictated by : DANNY COSTA MD This examination was interpreted and the report reviewed and electronically signed by: DANNY COSTA MD on Aug 29 2017 2:26PM EST [id number] Observed: 08/29/2017 Status: COMPLETED Source: [place] 10:46 AM [facility] REPOSITORY HNO ID: [id number] Author: Gael Simmons Service: Hospital Medicine Author Type: Physician Type: Progress Notes Filed: 08/29/2017 12:47 PM Note Text: Medicine [place] - Vipul Maire Progress Note PATIENT NAME: Paloma Cannon Brief [...] staff, Dr Simmons SIGNATURE: [place] [id number] DATE of SERVICE: August 29, 2017 TIME of SERVICE: 10:48 AM [facility] STAFF PHYSICIAN NOTE OF PERSONAL INVOLVEMENT IN CARE I have reviewed the documentation obtained and documented by the team healthcare provider (fellow, resident, nurse practitioner or physician pediatric physical therapy assistant) and I personally participated in the fernandes components. I have discussed the case and management of the patient's care and the note has been revised / addended to reflect my direct input. Cough with bloody tinged sputum today, concerning for DAH. CXR and monitor closely. MRSE from samantha, agree with ID will need to be removed. Appreciate ID support aGel Simmons MD [facility] Medicine Staff PAGER: [phone] DATE of Service: 08/29/2017 TIME of Service: 12:46 PM CONSULT PROG Observed: 08/29/2017 Status: COMPLETED Source: [place] 7:55 AM [facility] [place] REPOSITORY HNO ID: [id number] Author: Dominique Wright Service: Infectious Disease Author [...] NURSING PROG Observed: 08/29/2017 Status: COMPLETED Source: [place] 6:51 AM [facility] REPOSITORY HNO ID: [id number] Author: Lisseth Sauer) JEFF Palmer Service: Nursing Author Type: Registered Nurse Type: Nursing Progress Note Filed: 08/29/2017 6:52 AM Note Text: Nursing Progress Note Patient Name: Paloma Cannon Patient Location: [place] [address] Daily Note: 06Luther pride paged to notify that Blood Cx drawn 08/26 @ 1828 from central line + MRSE. This note was completed by: Lisseth Palmer RN COMP METABOLIC PANEL Collected: 08/29/2017 Status: F Source: [place] 6:16 AM [facility] REPOSITORY TYPE CODE TESTS RESULT OUT [...] mg/dL Low Glucose 69 Result Comment: The [place] Diabetes Association (ADA) provides guidance for cutoff [...] Standards of Medical Care in Diabetes 2016, [place] Diabetes [employer]. Diabetes Care. 2016.39(Suppl 1). LAB [...] actual GFR. Performed By: #### CMP #### [facility] [address], [place] [address] PROTIME Collected: 08/29/2017 Status: F Source: [place] 4:07 AM [facility] REPOSITORY TYPE CODE TESTS RESULT OUT OF RANGE REFERENCE UNITS LAB PSEC 9.7-13.0 sec High PT Sec 27.6 LAB INR 0.9-1.3 High PT INR 2.8 Result Comment: Vitamin K Antagonist (VKA) Therapeutic Range: INR 2 to 3 (Target INR of 2.5) Note: For patients treated with VKA drugs, such as warfarin, the [place] College of Chest Physicians 2012 Guideline recommends [...] Chest 2012, 141:7S-47S Diogenes RA, et al. [facility] 2017, 70: 252-289 Performed By: #### PT, CBCDIF #### [facility] [address] [place], [place] [address] CBC AND DIFFERENTIAL Collected: 08/29/2017 Status: F Source: [place] 4:07 AM [facility] REPOSITORY TYPE CODE TESTS RESULT OUT [...] Abs Lymph 0.09 Low LAB AMONO % Alexander% 4.2 LAB AAMONO <0.87 k/uL Abs Alexander 0.05 LAB AEOS % Eosin% 4.7 LAB AAEOS <0.46 k/uL Abs Eosin 0.06 LAB ABASO % Baso% 2.8 LAB AABASO <0.11 k/uL Abs Baso 0.03 LAB NRBC 0 /100 WBC NRBCs 4 High LAB AMETA % [place]% 0.5 LAB ANIIMI Anisocytosis Present LAB LFTIMI Left Shift Present LAB GNTPLW Giant Platelets Occasional LAB OVAIMI Ovalocytes Few LAB POLIMI Polychromasia Slight LAB RCFIMI RBC Fragments Few LAB PLTEST Platelet Estimate Platelet estimate decreased LAB DTYP DTYPE Manual Diff Performed By: #### PT, CBCDIF #### [facility] [address] [place] [id number] NURSING PROG Observed: 08/29/2017 Status: COMPLETED Source: [place] 2:21 AM [facility] REPOSITORY O ID: [id number] Author: Jeff Oates RN Service: (none) Author Type: Registered Nurse Type: Nursing Progress Note Filed: 08/29/2017 2:22 AM Note Text: Nursing Progress Note Patient Name: Paloma Cannon Patient Location: G081 023G0 Daily Note: 0217 Lab called urgent value, +blood cultures on 08/26 from central line showing gram + cocci and clusters. Vipul pride paged. This note was completed by: Lashon Howell RN Observed: 08/28/2017 Status: F Source: [place] BLOOD CULTURE 4:40 PM [facility] REPOSITORY Culture Result - No growth 5 days Performed By: #### BLCUL #### [facility] [address] [place], [place] [id number] Observed: 08/28/2017 Status: F Source: [place] BLOOD CULTURE 4:20 PM [facility] REPOSITORY Culture Result - No growth 5 days Performed By: #### BLCUL #### [facility] [address] [place], [place] [id number] PROGRESS Observed: 08/28/2017 Status: COMPLETED Source: [place] 1:55 PM [facility] REPOSITORY HNO ID: [id number] Author: Gael Simmons Service: Hospital Medicine Author Type: Physician Type: Progress Notes Filed: 08/28/2017 3:05 PM Note Text: [facility] [place] - Vipul Marie Progress Note PATIENT NAME: [...] 2 g in NaCl 0.9% 100 mL MB+/ADD-[place] 2 g INTRAVENOUS q 6 H diphenhydrAMINE [...] discussed with staff. SIGNATURE: [place] [id number] DATE of SERVICE: August 28, 2017 TIME of SERVICE: 1:56 PM [facility] STAFF PHYSICIAN NOTE OF PERSONAL INVOLVEMENT IN CARE I have reviewed the documentation obtained and documented by the team healthcare provider (fellow, resident, nurse practitioner or physician pediatric physical therapy assistant) and I personally participated in the fernandes components. I have discussed the case and management of the patient's care and the note has been revised / addended to reflect my direct input. Gael Simmons MD [facility] Medicine Staff PAGER: [phone] DATE of Service: 08/28/2017 TIME of Service: 3:05 PM CONSULT PROG Observed: 08/28/2017 Status: COMPLETED Source: [place] 1:03 PM [facility] [place] REPOSITORY HNO ID: [id number] Author: Dominique Wright Service: Infectious Disease Author Type: Physician Type: Consult Progress Note Filed: 08/28/2017 2:34 PM Note Text: INFECTIOUS DISEASE CONSULT SERVICE PROGRESS NOTE Date: August 28, 2017 Patient Name: Paloma Cannon Interval History: Doing well. MEDICATIONS Current Facility-Administered Medications: ampicillin 2 g in NaCl 0.9% 100 mL MB+/ADD-[place] 2 g INTRAVENOUS q 6 H diphenhydrAMINE [...] CASE MANAGEM Observed: 08/28/2017 Status: COMPLETED Source: [place] 12:18 PM [facility] REPOSITORY HNO ID: [id number] Author: Hailey Cunningham Service: Care Management Author Type: Manager Reporting Type: Care Mgt Progress Note Filed: 08/28/2017 12:19 PM Note Text: CARE MANAGEMENT PROGRESS NOTE SERVICE DATE: 08/28/2017 SERVICE TIME: 11:37 LOS: 3 days IM letter given to patient on 08/28/2017. 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 Patient to use [facility] Bedside Delivery - NO time 2. [...] OF CARE Observed: 08/28/2017 Status: COMPLETED Source: [place] 11:45 AM [facility] REPOSITORY HNO ID: [id number] Author: Justina Pollard (Pa) Service: Hematology Author Type: Physician Drywall Sander Type: Plan of Care Filed: 08/28/2017 2:53 [...] back with questions Discussed with Dr.Samaras Justina Polalrd, PA-C [id number] CASE MGT INIT Observed: 08/28/2017 Status: COMPLETED Source: [facility] 10:16 AM [facility] REPOSITORY HNO ID: [id number] Author: Dary (Rn) JEFF Jimenes Service: Care Management Author Type: Registered Nurse Type: Care Mgt Initial Assessment Filed: 08/28/2017 10:26 AM Note Text: CARE MANAGEMENT: ASSESSMENT AND DISCHARGE PLAN SERVICE DATE: 08/28/2017 SERVICE TIME: 10:17 AM PRIMARY CARE PHYSICIAN: PEYTON ROGERS MD ADMISSION STATUS: Inpatient POTENTIAL DISCHARGE PLANS Home To Be Determined Patient/Shiftman Stated Goals: to return home Needs Prior to Discharge: To Be Determined Health Insurance: Medicare, Medicaid Living Arrangement: Home Lives With: Spouse Financial Resources: N/A Primary Contact: Extended Emergency Contact Information Primary Emergency Contact: Morteza Cannon Address: [address] [place], [place] [id number] [place] [address] OF [facility] Mobile Relation: Spouse Secondary Emergency Contact: [...] No Has the Patient Been in a Retirement Facility in the Past 30 days? N/A [...] (triple positive with + lupus anticoagulant, + zmcs-a2-kpygjnirjjjm, and + anti-cardiolipin antibodies, she is on plasmapheresis every other week since ' and is also on Prednisone 5 mg [...] given V and Z and transferred to [facility] for further management. Introduced myself to patient [...] ALLIED HEALTH Observed: 08/28/2017 Status: COMPLETED Source: [place] 8:49 AM [facility] REPOSITORY HNO ID: [id number] Author: Darrell (Mph) Gildardo Service: Infection Prevention [...] 28, 2017 TIME: 8:50 AM PAGER/CONTACT #: [phone] Infection Prevention after hours/weekend pager: [phone] VANCOMYCIN Collected: 08/28/2017 Status: F Source: [place] 4:28 AM [facility] REPOSITORY TYPE CODE TESTS RESULT OUT OF REFERENCE UNITS RANGE LAB VANCRA 5.0-20.0 ug/mL High Vancomycin 29.9 Result Comment: Reference ranges and high/low indicator flags are provided as general guidelines only. The treating physician must determine appropriate target levels/dosing based on the specific clinical situation. Performed By: #### VANCRA, PT, CBCDIF, BMP, HFP #### [facility] [address] [id number] PROTIME Collected: 08/28/2017 Status: F Source: [place] 4:28 AM [facility] REPOSITORY TYPE CODE TESTS RESULT OUT OF RANGE REFERENCE UNITS LAB PSEC 9.7-13.0 sec High PT Sec 35.0 LAB INR 0.9-1.3 High PT INR 3.7 Result Comment: Vitamin K Antagonist (VKA) Therapeutic Range: INR 2 to 3 (Target INR of 2.5) Note: For patients treated with VKA drugs, such as warfarin, the [place] [employer]icians 2012 Guideline recommends [...] Chest 2012, 141:7S-47S Diogenes RESENDIZ et al. [facility] 2017, 70: 252-289 Performed By: #### VANCRA, PT, CBCDIF, BMP, HFP #### [facility] [address] [place], [place] [address] CBC AND DIFFERENTIAL Collected: 08/28/2017 Status: F Source: [place] 4:28 AM [facility] REPOSITORY TYPE CODE TESTS RESULT OUT [...] Abs 0.12 Low Lymph LAB AMONO % Alexander% 5.8 LAB AAMONO <0.87 k/uL Abs 0.15 Alexander LAB AEOS % 3.9 Eosin% LAB AAEOS <0.46 k/uL Abs 0.10 Eosin LAB ABASO % Baso% 0.8 LAB AABASO <0.11 k/uL Abs <0.03 Baso LAB AUNRBC 0 /100 WBC NRBCs 0.0 LAB ABNRBC <0.01 k/uL <0.01 Absolute nRBC LAB DTYP DTYPE Auto Diff Performed By: #### VANCRA, PT, CBCDIF, BMP, HFP #### [facility] [address] [place], [place] [address] BASIC METABOLIC PANL Collected: 08/28/2017 Status: F Source: [place] 4:28 AM [facility] REPOSITORY TYPE CODE TESTS RESULT OUT OF REFERENCE UNITS RANGE LAB GLU 74-99 mg/dL Glucose 78 Result Comment: The [place] Diabetes Association (ADA) provides guidance for cutoff [...] Standards of Medical Care in Diabetes 2016, [place] [employer] Association. Diabetes Care. 2016.39(Suppl 1). LAB [...] accurately reflect actual GFR. Performed By: #### VANC, PT, CBCDIF, BMP, HFP #### [facility] [address] [place], [place] [address] HEPATIC FUNCTN PANEL Collected: 08/28/2017 Status: F Source: [place] 4:28 AM [facility] REPOSITORY TYPE CODE TESTS [...] #### VANCRA, PT, CBCDIF, BMP, HFP #### [facility] [address] [place], [place] [address] CONSULT PROG Observed: 08/27/2017 Status: COMPLETED Source: [place] 2:10 PM [facility] REPOSITORY HNO ID: [id number] Author: Dominique Wright Service: Infectious Disease Author [...] p.m. CONSULT Observed: 08/27/2017 Status: COMPLETED Source: [place] 12:54 PM [facility] [place] REPOSITORY HNO ID: [id number] Author: Dominique Rios Service: Hematology/Oncology Author Type: Physician Type: Consults Filed: 08/27/2017 4:09 PM Note Text: Hematology Consult Note PATIENT NAME: Paloma Martinez CLINIC NO.: [id number] REQUESTING SERVICE: Internal Medicine History of Present [...] Lymph 1.00 - 4.00 k/uL 0.11 (L) Alexander% % 3.9 Abs Alexander <0.87 k/uL 0.06 Eosin% % 2.6 Abs [...] make Dr. Andujar, Dr Claudio and Dr Alieca aware of patient's admission and will arrange for close follow up. Following with you and please call or page with questions. Dominique Rios, Hematology Consult Service Pager [phone] PT ED Observed: 08/27/2017 Status: COMPLETED Source: [place] 11:22 AM [facility] [place] REPOSITORY O ID: [id number] Author: Thuy Mills (Pharmacist) Service: Pharmacy Author [...] INR checked at Dr. Guillaume Fuller' office ([facility] physician) with his CITY PLANT SUPERVISOR Magdalena Indication for warfarin: deep vein thrombosis [...] Guillaume Fuller' office of [facility] with his CITY PLANT SUPERVISOR Magdalena Patient extremely pleasant and well-versed on warfarin. States she has been on warfarin since ~2013 Anahi Do (Chief Port Director) Thuy [place] PharmD [address] NUTRITION Observed: 08/27/2017 Status: COMPLETED Source: [place] 9:11 AM [facility] REPOSITORY HNO ID: [id number] Author: Edel Berg Service: Nutrition Therapy Author [...] Estimated kilocalorie needs: 2113 kilocalories determined by [place] Jeor x 1.3 Estimated protein needs:93-112 grams [...] August 27, 2017 TIME: 9:11 AM PAGER: [phone] PROGRESS Observed: 08/27/2017 Status: COMPLETED Source: [place] 8:21 AM [facility] REPOSITORY HNO ID: [id number] Author: Kwesi Manriquez Service: General Internal Medicine [...] (CYTOXAN) 200 mg ORAL DAILY Kwesi K Akut[place] 200 mg at 08/26/17 1731 sulfamethoxazole-trimethoprim 800-160 [...] Yasmine Lovell MD Internal Medicine, PGY-1 Pager: [phone] *Note: On Weekdays from 5pm to 7am and Weekends from 3pm to 7am, please page the on-call pager ([phone]).* [facility] STAFF PHYSICIAN NOTE OF PERSONAL INVOLVEMENT IN [...] counseling and/or coordinating care for the patient. Xmlu-lh-oepb time was [address] Simmons assumes service tomorrow. Kwesi Manriquez MD Beeper Number: [id number]. Date of Service: August 27, 2017 Time of Service: 11.20 AM. TYPE AND SCREEN Collected: 08/27/2017 Status: F Source: [place] 7:00 AM [facility] REPOSITORY TYPE CODE TESTS RESULT OUT OF REFERENCE UNITS RANGE LAB %ABR B ABO/RH(D) POSITIVE LAB % Antibody POS Screen Performed By: #### TSCR #### [facility] [address] [place] [address] PROTEIN/CREATININE RATIO Collected: Status: F Source: [place] 08/27/2017 5:56 AM [facility] REPOSITORY TYPE CODE TESTS RESULT OUT OF REFERENCE UNITS RANGE LAB UTPR 0-20 mg/dL Protein Urine 17 Random LAB UCRR 20-300 mg/dL Creatinine,Ur 49.4 ine,Ran LAB PCRAT <0.2 High Protein/Creat 0.3 inine Ratio Performed By: #### PRATIO #### [facility] [address] [place], [place] [address] SODIUM,URINE,RANDOM Collected: Status: F Source: [place] 08/27/2017 5:56 AM [facility] REPOSITORY TYPE CODE TESTS RESULT OUT OF RANGE REFERENCE UNITS LAB UNAR 14-216 mmol/L 28 Sodium,Urine ,Random Performed By: #### UNAR #### [facility] [address] [place], [place] [address] PROTIME Collected: 08/27/2017 Status: F Source: [place] 5:06 AM [facility] REPOSITORY TYPE CODE TESTS RESULT OUT OF RANGE REFERENCE UNITS LAB PSEC 9.7-13.0 sec High PT Sec 33.9 LAB INR 0.9-1.3 High PT INR 3.5 Result Comment: Vitamin K Antagonist (VKA) Therapeutic Range: INR 2 to 3 (Target INR of 2.5) Note: For patients treated with VKA drugs, such as warfarin, the [place] [employer] Physicians 2012 Guideline recommends [...] Chest 2012, 141:7S-47S Diogenes RESENDIZ, et al. [facility] 2017, 70: 252-289 Performed By: #### PT, BMP, MG1, PHOS, CBCDIF #### [facility] [address] [place] [address] BASIC METABOLIC PANL Collected: 08/27/2017 Status: F Source: [place] 5:06 AM [facility] REPOSITORY TYPE CODE TESTS RESULT OUT OF REFERENCE UNITS RANGE LAB GLU 74-99 mg/dL Glucose 96 Result Comment: The [place] Diabetes Association (ADA) provides guidance for cutoff [...] Standards of Medical Care in Diabetes 2016, [place] [employer]. Diabetes Care. 2016.39(Suppl 1). LAB [...] #### PT, BMP, MG1, PHOS, CBCDIF #### [facility] [address] [place] [address] MAGNESIUM Collected: 08/27/2017 Status: F Source: [place] 5:06 AM [facility] REPOSITORY TYPE CODE TESTS RESULT OUT OF REFERENCE UNITS RANGE LAB MG 1.7-2.3 mg/dL Magnesium 2.2 Performed By: #### PT, BMP, MG1, PHOS, CBCDIF #### [facility] [address] [place] [address] PHOSPHORUS Collected: 08/27/2017 Status: F Source: [place] 5:06 AM [facility] REPOSITORY TYPE CODE TESTS RESULT OUT OF REFERENCE UNITS RANGE LAB PHOS 2.7-4.8 mg/dL Phosphorus 4.7 Performed By: #### PT, BMP, MG1, PHOS, CBCDIF #### [place] [address] CBC AND DIFFERENTIAL Collected: 08/27/2017 Status: F Source: [place] 5:06 AM [facility] REPOSITORY TYPE CODE TESTS RESULT OUT [...] Abs Lymph Low 0.11 LAB AMONO % Alexander% 3.9 LAB AAMONO <0.87 k/uL Abs Alexander 0.06 LAB AEOS % Eosin% 2.6 LAB [...] #### PT, BMP, MG1, PHOS, CBCDIF #### [place] [id number] [place] [address] Observed: 08/26/2017 Status: F Source: [place] BLOOD CULTURE 6:43 PM [facility] REPOSITORY Culture Result - No growth 5 days Performed By: #### BLCUL #### [place] [id number] [place] [address] Observed: 08/26/2017 Status: F Source: [place] BLOOD CULTURE 6:28 PM [facility] REPOSITORY Additional Testing - Methicillin resistant Staphylococcus epidermidis (MRSE) detected by microarray. Single positive cultures of S. epidermidis usually represent contamination. Call lab within 72 h if f urther work up is required. Negative for Streptococcus spp. and Enterococcus spp. by microarray. Culture Result - Staphylococcus epidermidis Refer to specimen collected on 08/25/17 AT 1740 ([id number]) (NOTE) --> ABNORMAL ALERT Positive result called to and read back by:SAE Lima 08/29/17 --&g t; ABNORMAL ALERT 0215 ANGEL [...] ABNORMAL ALERT Performed By: #### BLCUL #### [facility] [address] [place], [place] [address] XR ABDOMEN 1V SUPINE Observed: 08/26/2017 Status: F Source: [place] 4:33 PM [facility] REPOSITORY * * *Final Report* * [...] Right upper quadrant clips. No Abnormal calcifications. [facility] Transcribe Date/Time: Aug 26 2017 5:11P Dictated by : SARAI EVANS MD This examination was interpreted and the report reviewed and electronically signed by: SARAI EVANS MD on Aug 26 2017 5:13PM EST [id number] NURSING PROG Observed: 08/26/2017 Status: COMPLETED Source: [place] 3:15 PM [facility] REPOSITORY HNO ID: [id number] Author: Tigist (Rn) JEFF Ramirez Service: (none) Author Type: Registered Nurse Type: Nursing Progress Note Filed: 08/26/2017 3:20 PM Note Text: Nursing Progress Note Patient Name: Paloma Cannon Patient Location: [place] [address]/81- pt left This note was completed by: Tigist Ramirez RN RETICULOCYTE Collected: 08/26/2017 Status: F Source: [place] 1:48 PM [facility] REPOSITORY TYPE CODE TESTS RESULT OUT OF REFERENCE UNITS RANGE LAB RETC 0.4-2.0 % Retic% 1.5 LAB ABRET 0.0180-0.1000 M/uL Abs Retic 0.043 Performed By: #### RETIC, CMVQNT #### [place] [address] CMV DNA QUANT BY Collected: 08/26/2017 Status: F Source: [place] PCR 1:48 PM [facility] REPOSITORY TYPE CODE TESTS RESULT OUT OF REFERENCE UNITS RANGE LAB CMVIU IU/mL CMV CMV DNA not DNA (IU/mL) detected by PCR. Result Comment: Linear Range 137 - 9,100,000 IU/mL (2.14 - 6.96 log IU/mL) Reference Range: Negative for CMV DNA Performed By: #### RETIC, CMVQNT #### [place] [address] FUNGAL BATTERY - CF Collected: 08/26/2017 Status: F Source: [place] 1:48 PM [facility] REPOSITORY TYPE CODE TESTS RESULT OUT [...] Negative <1:2 Performed By: #### FUNCF #### [facility] [address] [place], [place] [address] CONSULT Observed: 08/26/2017 Status: COMPLETED Source: [place] 1:38 PM [facility] REPOSITORY HNO ID: [id number] Author: Dominique Wright Service: Infectious Disease Author Type: Physician Type: Consults Filed: 08/26/2017 2:25 PM Note Text: INFECTIOUS DISEASE CONSULT NOTE Date: August 26, 2017 Patient Name: Paloma Cannon Asked to see patient by Dr. Manriquez for blood stream infection. My recommendations will be communicated back by way of shared medical record. HISTORY OF PRESENT ILLNESS Ms. Nelli Cannno is a 27F with antiphospholipid syndrome?(on plasmapheresis- [...] 08/25 are growing GPC pairs, chains. Awaiting [employer] data on initial identification. Stool positive for [...] 2:20 p.m. Observed: 08/26/2017 Status: F Source: [place] URINE CULTURE 1:31 PM [facility] REPOSITORY Sp. Request/Comment: - Specimen received in preservative Culture Result - No growth (<1,000 CFU/ml) Performed By: #### URCUL #### [facility] [address] [place], [place] [address] C DIFFICILE PCR Collected: 08/26/2017 Status: F Source: [place] 9:28 AM [facility] REPOSITORY TYPE CODE TESTS RESULT OUT OF RANGE REFERENCE UNITS LAB CDFRES C Abnormal difficile PCR Positive for Alert C. difficile toxin by PCR Result Comment: Called to and read back by: Clarence TORRES ON 08/26/17 AT 1352 TO Asif GASTON Performed By: #### CDPCR #### [facility] [address] [place], [place] [address] CONSULT PROG Observed: 08/26/2017 Status: COMPLETED Source: [place] 8:28 AM [facility] REPOSITORY HNO ID: [id number] Author: Daysi Rodriguez (Housekeeping Laundry Worker) Service: Pharmacy Author Type: Pharmacist Type: Consult [...] any questions, please contact Rome Yu at [phone]. Age: [age] year old Allergies: ALLERGIES Allergen [...] Value 03/19/2017 23.9 (H) 03/17/2017 19.7 DAYSI RODRIGUEZ PLANT TENDER PLAN OF CARE Observed: 08/26/2017 Status: COMPLETED Source: [place] 8:09 AM [facility] REPOSITORY HNO ID: [id number] Author: Lorna Dowling Service: General Internal Medicine Author Type: Resident Type: Plan of Care Filed: 08/26/2017 8:10 AM Note Text: Patient transferred to [facility] Service on August 26, 2017. ? Reeling And Tubing Machine Operator (first call)- Yasmine Russo; Pager [phone]. ? Resident: Lorna Dowling MD, PhD; Pager [phone]. Staff: Kwesi Manriquez MD. PROTIME Collected: 08/26/2017 Status: F Source: [place] 5:01 AM [facility] REPOSITORY TYPE CODE TESTS RESULT OUT OF RANGE REFERENCE UNITS LAB PSEC 9.7-13.0 sec High PT Sec 24.1 LAB INR 0.9-1.3 High PT INR 2.5 Result Comment: Vitamin K Antagonist (VKA) Therapeutic Range: INR 2 to 3 (Target INR of 2.5) Note: For patients treated with VKA drugs, such as warfarin, the [place] [employer] Physicians 2012 Guideline recommends [...] Chest 2012, 141:7S-47S Diogenes RA, et al. [facility] 2017, 70: 252-289 Performed By: #### PT, BMP, MG1, PHOS, CBCDIF #### [facility] [address] [place], [place] [address] BASIC METABOLIC PANL Collected: 08/26/2017 Status: F Source: [place] 5:01 AM [facility] REPOSITORY TYPE CODE TESTS RESULT OUT OF REFERENCE UNITS RANGE LAB GLU 74-99 mg/dL Low Glucose 73 Result Comment: The [place] Diabetes Association (ADA) provides guidance for cutoff [...] Standards of Medical Care in Diabetes 2016, [place] [employer]. Diabetes Care. 2016.39(Suppl 1). LAB [...] #### PT, BMP, MG1, PHOS, CBCDIF #### [facility] [address] [place], [place] [address] MAGNESIUM Collected: 08/26/2017 Status: F Source: [place] 5:01 AM [facility] REPOSITORY TYPE CODE TESTS RESULT OUT OF REFERENCE UNITS RANGE LAB MG 1.7-2.3 mg/dL Low Magnesium 1.6 Performed By: #### PT, BMP, MG1, PHOS, CBCDIF #### [facility] [address] [place], [place] [address] PHOSPHORUS Collected: 08/26/2017 Status: F Source: [place] 5:01 AM [facility] REPOSITORY TYPE CODE TESTS RESULT OUT OF REFERENCE UNITS RANGE LAB PHOS 2.7-4.8 mg/dL Phosphorus 2.7 Performed By: #### PT, BMP, MG1, PHOS, CBCDIF #### [facility] [address] [place] [id number] CBC AND DIFFERENTIAL Collected: 08/26/2017 Status: F Source: [place] 5:01 AM [facility] REPOSITORY TYPE CODE TESTS RESULT OUT [...] Abs 0.18 Low Lymph LAB AMONO % Alexander% 11.1 LAB AAMONO <0.87 k/uL Abs 0.23 Alexander LAB AEOS % 2.4 Eosin% LAB AAEOS <0.46 k/uL Abs 0.05 Eosin LAB ABASO % Baso% 1.0 LAB AABASO <0.11 k/uL Abs <0.03 Baso LAB AUNRBC 0 /100 WBC NRBCs 0.0 LAB ABNRBC <0.01 k/uL <0.01 Absolute nRBC LAB DTYP DTYPE Auto Diff Performed By: #### PT, BMP, MG1, PHOS, CBCDIF #### [facility] [address], [place] [address] URINALYSIS WITH Collected: 08/25/2017 Status: F Source: [place] MICROSCOPIC 11:09 PM [facility] REPOSITORY TYPE CODE TESTS RESULT OUT OF RANGE REFERENCE UNITS LAB UCOL Yellow Color Abnormal Lisseth Alert LAB [facility] Clear Clarity Abnormal Cloudy Alert LAB UGLUC Negative mg/dL Glucose, Urine Negative LAB UBIL Negative Bilirubin, Urine Negative LAB UKET Negative Ketones, Urine Negative LAB [facility] 1.005-1.030 Specific [place], Ur 1.017 LAB UHGB Negative Abnormal Hemoglobin/Blood, [...] Epithelial Cells Performed By: #### UAWMIC #### [facility] [address] [place] [address] NURSING PROG Observed: 08/25/2017 Status: COMPLETED Source: [place] 10:55 PM [facility] REPOSITORY HNO ID: [id number] Author: Rachael Sauer) JEFF Andrade Service: Nursing Author Type: Registered Nurse Type: Nursing Progress Note Filed: 08/26/2017 12:34 AM Note Text: Admission/Transfer Note PATIENT NAME: Paloma Cannon Patient admitted from ED via stretcher in stable condition. Notified Of sepsis care path [facility]. Actions taken: Patient oriented to room, call light function, prescribed activities, Patient rights and Quiet at night. This note was completed by: Rachael Andrade RN HISTORY PHYSICAL Observed: 08/25/2017 Status: COMPLETED Source: [place] 9:45 PM [facility] REPOSITORY HNO ID: [id number] Author: Kwesi Manriquez Service: General Internal Medicine [...] she decided to come to ED at [facility]. When she presented she was febrile, [...] (FLONASE) 50 mcg/actuation nasal spray Use 1 [place] in each nostril once daily. Disp: Rfl: [...] Unknown at Unknown time Miscellaneous Medical [facility] package 30 - 40 mmHg pressure [...] 105 20 100 % - - 08/25/17 170 144/58 (!) 38.9 ?C (102.1 ?F) Oral [...] triple positive with + lupus anticoagulant, + csak-g0-vcischgtfegi, and + anti-cardiolipin antibodies, she is on [...] slower rate History of HIT (heparin-induced thrombocytopenia) (HCC) She [...] 25, 2017 TIME: 9:46 PM PAGER/CONTACT #: [phone] [facility] Addendum Please refer to excellent note [...] (triple positive with + lupus anticoagulant, + gars-g4-mrqvmrvqotew, and + anti-cardiolipin antibodies, she is on [...] given V and Z and transferred to [facility] for further management. PHYSICAL EXAM Blood pressure [...] (triple positive with + lupus anticoagulant, + mmmg-l8-cckpwojiedre, and + anti-cardiolipin antibodies, - She is [...] (L) 0.20 (L) 0.13 (L) 0.18 (L) Alexander% 4.6 6.2 8.7 6.5 11.1 Abs Alexander 0.31 0.35 0.28 0.19 0.23 Eosin% 5.1 [...] Manuel Serrato MD Internal Medicine PGY-3 Pager [phone] August 25, 2017 11:02 PM. [facility] STAFF PHYSICIAN NOTE OF PERSONAL INVOLVEMENT [...] counseling and/or coordinating care for the patient. Edhp-ug-ngdi time was 25 minutes. Kwesi Manriquez MD Beeper Number: [id number]. Date of Service: August 26, 2017 Time of Service: 11.14 AM. PT ED Observed: 08/25/2017 Status: COMPLETED Source: [place] 8:54 PM [facility] REPOSITORY HNO ID: [id number] Author: Ccf Provider Service: (none) Author Type: Physician Type: Patient Education Filed: 08/25/2017 8:54 PM Note Text: [facility] Patient Education Report --------- Name: PALOMA MARTINEZ Date: 08/25/2017 Time: 8:53 PM Patient Ordered Video: Inpatient Falls from [id number] via phone number [phone] at 8:53 PM ED NOTE Observed: 08/25/2017 Status: COMPLETED Source: [place] 8:05 PM [facility] REPOSITORY HNO ID: [id number] Author: Aubree SanchezRn) JEFF Flanagan Service: Emergency Medicine Author Type: Registered Nurse Type: ED Notes Filed: 08/25/2017 8:09 PM Note Text: VSS. Transported to [facility] via cart escorted by medic. Remains stable. Spouse at bedside. Belongings at side. 2nd liter of IVF continue to infuse as ordered; see MAR. IV antibiotics hung and infusing as ordered; see MAR. ED NOTE Observed: 08/25/2017 Status: COMPLETED Source: [place] 7:56 PM [facility] REPOSITORY HNO ID: [id number] Author: Aubree SanchezRn) JEFF Flanagan Service: Emergency Medicine Author Type: Registered Nurse Type: ED Notes Filed: 08/25/2017 7:57 PM Note Text: Report to [facility]; bed ready. Awaiting transport. PROGRESS Observed: 08/25/2017 Status: COMPLETED Source: [place] 6:35 PM [facility] REPOSITORY HNO ID: [id number] Author: Sue Bah (Rt) Service: Radiology Author Type: Chute Operator Type: Progress Notes Filed: 08/25/2017 6:35 [...] 1V FRONTAL Observed: 08/25/2017 Status: F Source: [facility] 6:34 PM [facility] REPOSITORY * * *Final Report* * [...] NEW CARDIOPULMONARY FINDINGS. IMPROVEMENT IN PULMONARY EDEMA. Glass Edger: MURTAZA Transcribe Date/Time: Aug 25 2017 6:49P Dictated by : MARK LARA MD This examination was interpreted and the report reviewed and electronically signed by: MARK LARA MD on Aug 25 2017 6:55PM EST [id number] ED NOTE Observed: 08/25/2017 Status: COMPLETED Source: [place] 6:22 PM [facility] REPOSITORY HNO ID: [id number] Author: Marissa (Rn) JEFF Cormier Service: Emergency [...] ED NOTE Observed: 08/25/2017 Status: COMPLETED Source: [place] 6:21 PM [facility] [place] REPOSITORY HNO ID: [id number] Author: Marissa (Rn) JEFF Cormier Service: Emergency Medicine Author Type: Registered Nurse Type: ED Notes Filed: 08/25/2017 6:22 PM Note Text: Flu swab obtained and sent to POC IV fluid bolus infusing 1st liter up. ED PROV NOTE Observed: 08/25/2017 Status: COMPLETED Source: [place] 5:56 PM [facility] [place] [facility] REPOSITORY HNO ID: [id number] Author: Ishaan Byrne MD Service: Emergency Medicine [...] ED NOTE Observed: 08/25/2017 Status: COMPLETED Source: [place] 5:48 PM [facility] [place] REPOSITORY HNO ID: [id number] Author: Marissa Sauer) JEFF Cormier Service: Emergency Medicine Author Type: Registered Nurse Type: ED Notes Filed: 08/25/2017 5:48 PM Note Text: X ray at bedside to do port chest film ED NOTE Observed: 08/25/2017 Status: COMPLETED Source: [place] 5:46 PM [facility] [place] REPOSITORY HNO ID: [id number] Author: Marissa Sauer) JEFF Cormier Service: Emergency Medicine Author Type: Registered Nurse Type: ED Notes Filed: 08/25/2017 5:47 PM Note Text: Assumed care of the patient. Triage note reviewed. Labs obtained, including blood cultures and sent to the lab. Update report taken from Charge nurse. ED NOTE Observed: 08/25/2017 Status: COMPLETED Source: [place] 5:46 PM [facility] [place] REPOSITORY HNO ID: [id number] Author: Zhou SanchezMedicOsmin Stafford Service: Emergency Medicine Author Type: Certified Ophthalmic Surgical Assistant and Chute Operator Type: ED Notes Filed: 08/25/2017 5:46 PM Note Text: Labs including Lactic acid drawn and sent ED NOTE Observed: 08/25/2017 Status: COMPLETED Source: [place] 5:40 PM [facility] [place] REPOSITORY HNO ID: [id number] Author: Mari Matt RN Service: Emergency Medicine Author Type: Registered Nurse Type: ED Notes Filed: 08/25/2017 5:46 PM Note Text: Blood cultures 2nd set drawn from R chest central line and sent. Observed: 08/25/2017 Status: F Source: [place] BLOOD CULTURE 5:40 PM [facility] REPOSITORY Culture Result - Enterococcus faecalis Cephalosporins, clindamycin, and TMP-SMX are not effective for the treatment of enterococcal infections. --> ABNORMAL ALERT Refer to specimen collected on --&gt ; ABNORMAL ALERT 1730 ([id number]) --> ABNORMAL ALERT Staphylococcus epidermidis --> ABNORMAL ALERT (NOTE) --> ABNORMAL ALERT Positive result called to and read back by: Briana vargas G81 --> ABNORMAL ALERT 08/26/17 0835 [...] 2 F Performed By: #### BLCUL #### [facility] [address] [id number] ED NOTE Observed: 08/25/2017 Status: COMPLETED Source: [place] 5:38 PM [facility] REPOSITORY HNO ID: [id number] Author: Mari SanchezRn) JEFF Matt Service: Emergency Medicine Author Type: Registered Nurse Type: ED Notes Filed: 08/25/2017 5:46 PM Note Text: Labs including lactate drawn and sent ED NOTE Observed: 08/25/2017 Status: COMPLETED Source: [place] 5:30 PM [facility] REPOSITORY HNO ID: [id number] Author: Osmin Gan (Medic) Service: Emergency Medicine Author Type: Certified Ophthalmic Surgical Assistant and Chute Operator Type: ED Notes Filed: 08/25/2017 5:45 PM Note Text: Blood cultures drawn and sent.BC#1 RH via straight stick CBC AND DIFFERENTIAL Collected: 08/25/2017 Status: F Source: [place] 5:30 PM [facility] REPOSITORY TYPE CODE TESTS RESULT OUT [...] Abs 0.13 Low Lymph LAB AMONO % Alexander% 6.5 LAB AAMONO <0.87 k/uL Abs 0.19 Alexander LAB AEOS % 1.7 Eosin% LAB AAEOS <0.46 k/uL Abs 0.05 Eosin LAB ABASO % Baso% 1.0 LAB AABASO <0.11 k/uL Abs 0.03 Baso LAB AUNRBC 0 /100 WBC NRBCs 0.0 LAB ABNRBC <0.01 k/uL <0.01 Absolute nRBC LAB DTYP DTYPE Auto Diff Performed By: #### CBCDIF, CMP #### [facility] [address] [place], [place] [address] COMP METABOLIC PANEL Collected: 08/25/2017 Status: F Source: [place] 5:30 PM [facility] REPOSITORY TYPE CODE TESTS RESULT OUT [...] mg/dL Low Glucose 67 Result Comment: The [place] Diabetes Association (ADA) provides guidance for cutoff [...] Standards of Medical Care in Diabetes 2016, [place] Diabetes Association. Diabetes Care. 2016.39(Suppl 1). LAB [...] has been calibrated to be traceable to IDCredible. An eGFR <60 mL/min/1.73m2 for >3 months is consistent with chronic kidney disease. Refer to KDOQI guidelines for clinical interpretation. In patients with unstable renal function, e.g. those with acute kidney injury, the eGFR may not accurately reflect actual GFR. Performed By: #### CBCDIF, CMP #### [facility] [address] [place], [place] [address] PROTIME Collected: 08/25/2017 Status: F Source: [place] 5:30 PM [facility] REPOSITORY TYPE CODE TESTS RESULT OUT OF RANGE REFERENCE UNITS LAB PSEC 9.7-13.0 sec High PT Sec 21.4 LAB INR 0.9-1.3 High PT INR 2.2 Result Comment: Vitamin K Antagonist (VKA) Therapeutic Range: INR 2 to 3 (Target INR of 2.5) Note: For patients treated with VKA drugs, such as warfarin, the [place] College [employer] Physicians 2012 Guideline recommends [...] Chest 2012, 141:7S-47S Diogenes RA, et al. [facility] 2017, 70: 252-289 Performed By: #### PT #### [facility] [address] [place], [place] [address] Observed: 08/25/2017 Status: F Source: [place] BLOOD CULTURE 5:30 PM [facility] REPOSITORY Culture Result - Enterococcus faecalis Cephalosporins, clindamycin, and TMP-SMX are not effective for the treatment of enterococcal infections. --> ABNORMAL ALERT Beta lactamase Negative --> ABNOR MAL ALERT Staphylococcus epidermidis --> ABNORMAL ALERT Refer to specimen collected on --> ABNORMAL ALERT 08/25/17 AT 1740 ([id number]) --> ABNORMAL ALERT (NOTE) Positive result called to and read back by:Roxana [id number] 08/26/17 1414 BBlum ORGANISM: Enterococcus faecalis METHOD: [...] also susceptible. Performed By: #### BLCUL #### [facility] [address] [place], [place] [address] ED NOTE Observed: 08/25/2017 Status: COMPLETED Source: [place] 5:15 PM [facility] REPOSITORY HNO ID: [id number] Author: Mark (Rn) JEFF Lu Service: (none) Author Type: Registered Nurse Type: ED Notes Filed: 08/25/2017 5:15 PM Note Text: Bed: E12-09 Expected date: Expected time: Means of arrival: Comments: Fever with hx PROTHROMBIN TIME W/INR Collected: 08/25/2017 Status: F Source: [place] 8:03 AM [facility] REPOSITORY Order Comment: MEDOUT/PORT DRAW TYPE CODE TESTS RESULT OUT OF RANGE REFERENCE UNITS LAB L300.4150 11.7-14.9 SECONDS High PROTIME 21.4 LAB L300.4200 Normal INR 1.9 Performed By: #### L300.3900 #### [facility] [address] [place], [address] HOSP Observed: 08/25/2017 Status: COMPLETED Source: [place] 12:00 AM [facility] REPOSITORY Patient:Paloma Martinez MRN: <[id number]> Height:5' 2.992(1.6 m) Weight:209 lb 9.6 oz [...] mg 24 hr tablet [facility]ellaneous [facility] cetirizine 10 mg tablet senna 8.6 mg [...] 09/05/2017 46.0 36.0 Progress Notes (): Mark Lu, RN, RN 08/25/2017 5:15 PM Signed Bed: [...] fluid bolus infusing 1st liter up. Marissa Cormier, RN, RN 08/25/2017 6:32 PM Signed at [...] RN 08/25/2017 7:57 PM Signed Report to [facility]; bed ready. Awaiting transport. Aubree Flanagan, RN, RN 08/25/2017 8:09 PM Addendum VSS. Transported to [facility] via cart escorted by medic. Remains stable. Spouse at bedside. Belongings at side. 2nd liter of IVF continue to infuse as ordered; see MAR. IV antibiotics hung and infusing as ordered; see MAR. Previous Version [facility] Provider 08/25/2017 8:54 PM Signed [facility] Patient Education Report ---- Name: PALOMA MARTINEZ Date: 08/25/2017 Time: 8:53 PM Patient Ordered Video: Inpatient Falls from [id number] via phone number [phone] at 8:53 PM Kwesi Manriquez MD 08/26/2017 [...] she decided to come to ED at [facility]. When she presented she was febrile, [...] (FLONASE) 50 mcg/actuation nasal spray Use 1 Atlantic in each nostril once daily. Disp: Rfl: [...] Unknown at Unknown time [facility] 1 package 30 - 40 mmHg pressure [...] triple positive with + lupus anticoagulant, + uqhc-i7-nresmuhsfyto, and + anti-cardiolipin antibodies, she is on [...] slower rate History of HIT (heparin-induced thrombocytopenia) ([facility]) She is on coumadin for this reason She has pancytopenia now, possibly related to Cytoxan Plan: - Avoid heparin products - Daily CBC Recurrent Deep Vein Thrombosis (Dvt) ([facility]) Complicated by PE AND?DVT 09/2013 (s/p b/l iliac v. stents and Endoglix AFX endograft at the inferior vena caval bifurcation) on Warfarin (h/o HIT) extensive thrombectomy at outside hospital for right lower extremity and IVC thrombus. Plan: - Continue Warfarin 7.5 - Monitor INR SIGNATURE: Jcarlos Estrada MD PATIENT NAME: Paloma Cannon DATE: August 25, 2017 TIME: 9:46 PM PAGER/CONTACT #: [phone] [facility] Addendum Please refer to excellent note [...] (triple positive with + lupus anticoagulant, + ypjf-d2-wfspgupetqxq, and + anti-cardiolipin antibodies, she is on [...] given V and Z and transferred to [facility] for further management. PHYSICAL EXAM Blood pressure [...] (triple positive with + lupus anticoagulant, + cknk-k1-wwvsxalrefmm, and + anti-cardiolipin antibodies, - She is [...] (L) 0.20 (L) 0.13 (L) 0.18 (L) Alexander% 4.6 6.2 8.7 6.5 11.1 Abs Alexander 0.31 0.35 0.28 0.19 0.23 Eosin% 5.1 [...] Manuel Serrato MD Internal Medicine PGY-3 Pager [phone] August 25, 2017 11:02 PM. [facility] STAFF PHYSICIAN NOTE OF PERSONAL INVOLVEMENT IN CARE: Patient seen with overnight admitting team and [facility] team Gemma I have reviewed the history and physical [...] counseling and/or coordinating care for the patient. Zkfe-bf-kqio time was 25 minutes. Kwesi Manriquez MD Beeper Number: [id number]. Date of Service: August 26, 2017 Time of Service: 11.14 AM. Previous Version Rachael Andrade RN, RN 08/26/2017 12:34 AM Addendum Admission/Transfer Note PATIENT NAME: Paloma Cannon Patient admitted from ED via stretcher in stable condition. Notified Of sepsis care path [facility]. Actions taken: Patient oriented to room, call light function, prescribed activities, Patient rights and Quiet at night. This note was completed by: Rachael Andrade RN Previous Version Lorna Dowling MD 08/26/2017 8:10 AM Signed Patient transferred to Resident Lilo Service on August 26, 2017. ? Reeling And Tubing Machine Operator (first call)- Yasmine Russo; Pager [phone]. ? Resident: Lorna Dowling MD, PhD; Pager [phone]. Staff: Kwesi Manriquez MD. DAYSI RODRIGUEZ, PLANT TENDER 08/26/2017 8:29 AM Signed PHARMACY VANCOMYCIN DOSING [...] If you have any questions, please contact Sebastian YuD at [phone]. Age: [age] year old Allergies: ALLERGIES Allergen [...] 03/19/2017 23.9 (H) 03/17/2017 19.7 DAYSI RODRIGUEZ, PLANT TENDER Dominique Wright MD 08/26/2017 2:25 PM Addendum [...] 08/25 are growing GPC pairs, chains. Awaiting [employer] data on initial identification. Stool positive for [...] Manuel (Res) Rojelio 1.5 g at 08/26/17 1834 diphenhydrAMINE 25 mg in D5W 50 mL 25 mg INTRAVENOUS PRN Lorna (Res) Gandhy 25 mg at 08/27/17 0818 prochlorperazine 5 mg injection (COMPAZINE) 5 mg INTRAVENOUS q 4 H PRN Lorna (Res) Gandhy 5 mg at 08/26/172046 metroNIDAZOLE 500 mg PREMIX piggyback (FLAGYL) 500 mg INTRAVENOUS q 8 H Lorna (Res) Gandhy 500 mg at 08/27/17 050 cyclophosphamide 200 mg cap(s) (CYTOXAN) 200 mg ORAL DAILY Kwesi K [place] 200 mg at 08/26/17 1731 sulfamethoxazole-trimethoprim 800-160 mg 1 tablet (BACTRIM DS,SEPTRA DS) 1 tablet ORAL MO-WE-FR Jcarlos Estrada MD 1 tablet at 08/25/17 2233 gabapentin 300 mg cap(s) (NEURONTIN) 300 mg ORAL q 8 H Jcarlos Estrada MD 300 mg at 08/27/17 050 predniSONE 10 mg tab(s) (DELTASONE) 10 mg [...] Yasmine Lovell MD Internal Medicine, PGY-1 Pager: [phone] *Note: On Weekdays from 5pm to 7am and Weekends from 3pm to 7am, please page the on-call pager ([phone]).* [facility] STAFF PHYSICIAN NOTE OF PERSONAL INVOLVEMENT IN [...] counseling and/or coordinating care for the patient. Dnlx-xo-gxnc time was [address] Simmons assumes service tomorrow. Kwesi Manriquez MD Beeper Number: [id number]. Date of Service: August 27, 2017 Time [...] Estimated kilocalorie needs: 2113 kilocalories determined by [place]. Jeor x 1.3 Estimated protein needs:93-112 grams [...] Type: Initial Assess/15 min 4 units SIGNATURE: QUINTEN Pacheco PATIENT NAME: Paloma Cannon DATE: August 27, 2017 TIME: 9:11 AM PAGER: [phone] Thuy Mills, Pharmacist 08/27/2017 12:28 PM Signed PHARMACY WARFARIN EDUCATION Patient Name: Paloma Cannon Account #: Data Unavailable Admission Date: 08/25/2017 5:15 PM Date of Contact: August 27, 2017 Time of Contact: 11:23 AM Patient new to warfarin? No: Previous (home) dosage: 7.5 mg Sat and Sun; 5 mg Mon,, Mon, urs, Fri Outpatient follow-up plan: Pt reports she gets her INR checked at Dr. Guillaume Fuller' office ([facility] physician) with his CITY PLANT SUPERVISOR Magdalena Indication for warfarin: deep vein thrombosis [...] Guillaume Fuller' office of [facility] with his CITY PLANT SUPERVISOR Magdalena Patient extremely pleasant and well-versed on warfarin. States she has been on warfarin since ~2013 Anahi Do (Chief Port Director) Thuy Mills, PharmD [id number] Previous Version Dominique Rios DO 08/27/2017 4:09 PM Addendum Hematology Consult Note PATIENT NAME: Paloma Martinez CLINIC NO.: [id number] REQUESTING SERVICE: Internal Medicine History of Present [...] nephrotoxic agents - DVT (deep venous thrombosis) ([facility]) - Elevated CA-125 11/30/2013 244 - Essential hypertension 10/08/2015 Stable on home medications Plan: -continue to monitor on home meds - 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 Bivalirudin to Warfarin bridging - HIT (heparin-induced thrombocytopenia) ([facility]) - Nontoxic multinodular goiter - Obese - [...] Lymph 1.00 - 4.00 k/uL 0.11 (L) Alexander% % 3.9 Abs Alexander <0.87 k/uL 0.06 Eosin% % 2.6 Abs [...] Dominique Rios, DO Hematology Consult Service Pager [phone] Previous Version Dominique Wright MD 08/27/2017 2:15 [...] 28, 2017 TIME: 8:50 AM PAGER/CONTACT #: [phone] Infection Prevention after hours/weekend pager: [phone] Dary Jimenes, RN, RN 08/28/2017 10:26 AM Signed CARE MANAGEMENT: ASSESSMENT AND DISCHARGE PLAN SERVICE DATE: 08/28/2017 SERVICE TIME: 10:17 AM PRIMARY CARE PHYSICIAN: PEYTON ROGERS MD ADMISSION STATUS: Inpatient POTENTIAL DISCHARGE PLANS Home To Be Determined Patient/Shiftman Stated Goals: to return home Needs Prior to Discharge: To Be Determined Health Insurance: Medicare, Medicaid Living Arrangement: Home Lives With: Spouse Financial Resources: N/A Primary Contact: Extended Emergency Contact Information Primary Emergency Contact: Morteza Cannon Address: [address] [place] [address] [address] [place] [address] [facility] Mobile Relation: Spouse Secondary Emergency Contact: [...] No Has the Patient Been in a Retirement Facility in the Past 30 days? N/A [...] (triple positive with + lupus anticoagulant, + jsos-u3-tkfxiaffhhgl, and + anti-cardiolipin antibodies, she is on [...] given V and Z and transferred to [facility] for further management. Introduced myself to patient [...] 28, 2017 TIME: 10:17 AM PAGER/CONTACT #: [phone] Justina Pollard PA-C 08/28/2017 2:53 PM Signed [...] back with questions Discussed with JESSICA VargasC [id number] Geraldine Lazar (Distribution Manager) 08/28/2017 11:58 AM Signed FAT PURIFICATION WORKER BEDSIDE DELIVERY SURVEY 1. Patient to use [facility] Bedside Delivery - YES 2. If fax, patient would like us to fax prescriptions to Pharmacy of choice a. Pharmacy: b. Location: c. Phone: 3. Insurance card on file - YES 4. Credit card for payment - NO No prescriptions yet. Please page [phone] Hailey Cunningham, 08/28/2017 12:19 PM Signed CARE MANAGEMENT PROGRESS NOTE SERVICE DATE: 08/28/2017 SERVICE TIME: 11:37 LOS: 3 days IM letter given to patient on 08/28/2017. SIGNATURE: Haileyadriana Cunningham, PATIENT NAME: Paloma Cannon DATE: August 28, 2017 TIME: 12:18 PM PAGER/CONTACT #: [phone] Dominique Wright MD 08/28/2017 2:34 PM Addendum INFECTIOUS DISEASE CONSULT SERVICE PROGRESS NOTE Date: August 28, 2017 Patient Name: Paloma Cannon Interval History: Doing well. MEDICATIONS Current Facility-Administered Medications: ampicillin 2 g in NaCl 0.9% 100 mL MB+/ADD-[place] 2 g INTRAVENOUS q 6 H diphenhydrAMINE [...] Version Gael Simmons MD 08/28/2017 3:05 PM [facility] Progress Note PATIENT [...] 2 g in NaCl 0.9% 100 mL MB+/ADD-[place] 2 g INTRAVENOUS q 6 H diphenhydrAMINE [...] discussed with staff. SIGNATURE: [place] [id number] DATE of SERVICE: August 28, 2017 TIME of SERVICE: 1:56 PM [facility] STAFF PHYSICIAN NOTE OF PERSONAL INVOLVEMENT IN CARE I have reviewed the documentation obtained and documented by the team healthcare provider (fellow, resident, nurse practitioner or physician pediatric physical therapy assistant) and I personally participated in the fernandes components. I have discussed the case and management of the patient's care and the note has been revised / addended to reflect my direct input. Gael Simmons MD [facility] Medicine Staff PAGER: [phone] DATE of Service: 08/28/2017 TIME of Service: 3:05 PM Previous Version Lashon Howell RN, RN 08/29/2017 2:22 AM Signed Nursing Progress Note Patient Name: Paloma Cannon Patient Location: G081 G0 Daily Note: 0217 Lab called urgent value, +blood cultures on 08/26 from central line showing gram + cocci and clusters. Vipul nights paged. This note was completed by: JEFF Gomez RN, RN 08/29/2017 6:52 AM Signed Nursing Progress Note Patient Name: Paloma Cannon Patient Location: G081 G0 Daily Note: 0650 - Vipul nights paged to notify that Blood Cx drawn 08/26 @ 1828 from central line + MRSE. This note was completed by: Lisseth Palmer RN Dominique Wright MD 08/29/2017 7:59 AM [...] a.m. Gael Simmons MD 08/29/2017 12:[address] [facility] Progress Note PATIENT NAME: Paloma Cannon [...] staff, Dr Simmons SIGNATURE: [place] [id number] DATE of SERVICE: August 29, 2017 TIME of SERVICE: 10:48 AM [facility] STAFF PHYSICIAN NOTE OF PERSONAL INVOLVEMENT IN CARE I have reviewed the documentation obtained and documented by the team healthcare provider (fellow, resident, nurse practitioner or physician pediatric physical therapy assistant) and I personally participated in the fernandes components. I have discussed the case and management of the patient's care and the note has been revised / addended to reflect my direct input. Cough with bloody tinged sputum today, concerning for DAH. CXR and monitor closely. MRSE from [facility], agree with ID will need to be removed. Appreciate ID support Gael Simmons MD FACP [facility] Medicine Staff PAGER: [phone] DATE of Service: 08/29/2017 TIME of Service: [...] MD August 29, 2017 12:25 p.m. Elsa Germain, MS RD LD 08/30/2017 6:05 PM Signed [...] units SIGNATURE: Elsa Germain, MS RDN-AP LD CNSC PATIENT NAME: Paloma Cannon DATE: August 30, 2017 TIME: 10:34 AM PAGER: [phone] Gael Simmons MD 08/30/2017 2:21 PM [facility] Vipul Progress Note PATIENT NAME: Paloma Cannon [...] positive for MRSE (2/2 x2/16 and 1/2 x2/) Needs coverage for MRSE [...] staff, Dr Simmons SIGNATURE: [place] [id number] DATE of SERVICE: August 30, 2017 TIME of SERVICE: 12:16 PM [facility] STAFF PHYSICIAN NOTE OF PERSONAL INVOLVEMENT IN CARE I have reviewed the documentation obtained and documented by the team healthcare provider (fellow, resident, nurse practitioner or physician pediatric physical therapy assistant) and I personally participated in the fernandes components. I have discussed the case and management of the patient's care and the note has been revised / addended to reflect my direct input. Samantha now out. Diarrhea resolving Need c/s from [facility] Appreciate ID help Hemoptysis has resolved as well Gael Simmons MD FACP [facility] Medicine Staff PAGER: [phone] DATE of Service: 08/30/2017 TIME of Service: 2:20 PM Previous Version Alondra Lokesh, PT 08/30/2017 12:26 PM Signed Physical Therapy Evaluation SERVICE DATE: 08/30/2017 SERVICE TIME: 1151 to 1215 ROOM: [place] [address] Recommended Discharge Disposition: Home Recommended Discharge Equipment: [...] No Skilled Need Interventions Provided: Evaluation;Gait Training (13610) $ Evaluation-Low (63431) Billed Units: 1 unit Gait Training (13239) Treatment Minutes: 8 1 unit Skilled Intervention(s): [...] Walking and Moving Around Current Status (G8978): CH (08/30/17 1151) Mobility: Walking and Moving Around [...] Lives With: Significant Other Assistance Available: PRN;multimedia coordinator Entry To Home: No Stairs Number Of [...] 30, 2017 TIME: 12:22 PM PAGER/CONTACT #: [phone] Dominique Wright MD 08/30/2017 12:37 PM Signed [...] August 30, 2017 TIME: 1:17 PM PAGER: [phone] DAYSI GRULLON PHARMACIST 08/30/2017 1:48 PM Signed [...] with Physician: name: Dr. Guillaume Fuller' office ([facility] physician) with his [employer] PLANT SUPERVISOR Magdalena Indication for warfarin: deep vein thrombosis (DVT) Target INR range: 2.0 - 3.0 (Target 2.5) Patient received full warfarin education (Please see previously documented note on 08/27/17). DAYSI GRULLON, PHARMACIST [id number] Machelle Joshi PA-C 08/30/2017 1:54 PM Signed BRIEF OP NOTE LOG ID: [id number] Surgery/Procedure Date: 08/30/2017 Incision/Procedure Start Time: 1325 Incision Close/Procedure End Time: 1335 Surgeon(s)/Proceduralist(s) and Drywall Sander(s): Machelle Joshi PA-C Procedure(s): Removal of samantha [...] 30, 2017 TIME: 1:48 PM PAGER/CONTACT #: [phone] Lourdes Stallworth, RN, RN 08/30/2017 6:24 PM Addendum Nursing Progress Note Patient Name: Paloma Cannon Patient Location: [facility]/G081-23 Daily Note: A blood culture ordered for [...] (FLONASE) 50 mcg/actuation nasal spray Use 1 Atlantic in each nostril once daily. warfarin (COUMADIN) [...] 31, 2017 TIME: 12:01 PM PAGER/CONTACT #: [phone] . Staff addendum: I interviewed and examined Paloma Cannon, and reviewed and confirmed the findings of the CITY PLANT SUPERVISOR with additional comments below. The assessment and plan was formulated in discussion with the patient and CITY PLANT SUPERVISOR, and is also outlined below. Pleasant 27yo [...] Version Gael Simmons MD 08/31/2017 1:05 PM [facility] Progress Note PATIENT [...] 3 line cultures positive for MRSE (/2 x2/ and /2 x2/) Needs coverage for [...] - Bival vs Fondaparinux - Consult to [facility] medicine ? Chronic Problems: 1. Anti-phospholipid Syndrome 2. Hypertension 3. HFpEF - f/u ECHO 4. Heparin-induced Thrombocytopenia 5. 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 GERD ? Other: Diet: Regular GI AND DVT Prophylaxis: warfarin PT/OT Disposition Recs: N/A Code Status: Full code ? Case to be discussed with staff, Dr Simmons SIGNATURE: [place] [id number] DATE of SERVICE: August 31, 2017 TIME of SERVICE: 12:46 PM [facility] STAFF PHYSICIAN NOTE OF PERSONAL INVOLVEMENT IN CARE I have reviewed the documentation obtained and documented by the team healthcare provider (fellow, resident, nurse practitioner or physician pediatric physical therapy assistant) and I personally participated in the fernandes components. I have discussed the case and management of the patient's care and the note has been revised / addended to reflect my direct input. Jesus Alberto c/s positive, will need to be removed - we will schedule. Cont Dapto / Flagyl Appreciate [facility] med input, likely fondarinux SQ low dose for now. No further evidence of DAH Some joint pain she says occurred with BSI in the past Gael Simmons MD FACP [facility] Medicine Staff PAGER: [phone] DATE of Service: 08/31/2017 TIME of Service: [...] MD August 31, 2017 1 p.m. Lourdes Stallworth RN, RN 08/31/2017 5:04 PM Addendum Nursing Progress Note Patient Name: Paloma Cannon Patient Location: [place] [address]/G081-23 Daily Note: 1230 report given to IR [...] Principles PATIENT NAME: Paloma Cannon PATIENT LOCATION: [place] [id number]- READINESS TO LEARN COGNITIVE ABILITY: Alert and [...] August 31, 2017 TIME: 6:38 PM PAGER: [phone] Nicholas Gee III, MD 08/31/2017 7:44 PM [...] patient was brought to room 25, IR. [place] protocol performed. Subsequently, Removal of an indwelling [...] 31, 2017 TIME: 7:42 PM PAGER/CONTACT #: [phone] Dary Jimenes RN, RN 09/01/2017 9:18 AM [...] DC. TCC/SW to follow For W/E CM p#[phone] SIGNATURE: Dary Jimenes RN PATIENT NAME: Paloma Cannon DATE: September 01, 2017 TIME: 9:10 AM PAGER/CONTACT #: [phone] Gael Simmons MD 09/01/2017 11:59 AM [facility] Vipul Marie Progress Note PATIENT NAME: [...] 3 line cultures positive for MRSE (22 x2/ and 2 x2/) Needs coverage for [...] staff, Dr Simmons SIGNATURE: [place] [id number] DATE of SERVICE: September 01, 2017 TIME of SERVICE: 11:19 AM [facility] STAFF PHYSICIAN NOTE OF PERSONAL INVOLVEMENT IN CARE I have reviewed the documentation obtained and documented by the team healthcare provider (fellow, resident, nurse practitioner or physician pediatric physical therapy assistant) and I personally participated in the fernandes components. I have discussed the case and management of the patient's care and the note has been revised / addended to reflect my direct input. Jesus Alberto catheter out and she feels better Counts continue to fall Cont current abx ? New TAC early next week Gael Simmons MD FACP [facility] Medicine Staff PAGER: [phone] DATE of Service: 09/01/2017 TIME of Service: [...] Version Gael Simmons MD 09/02/2017 10:45 AM [facility] V[facility] Marie Progress Note PATIENT NAME: [...] staff, Dr Simmons SIGNATURE: [place] [id number] DATE of SERVICE: September 02, 2017 TIME of SERVICE: 10:20 AM [facility] STAFF PHYSICIAN NOTE OF PERSONAL INVOLVEMENT IN CARE I have reviewed the documentation obtained and documented by the team healthcare provider (fellow, resident, nurse practitioner or physician pediatric physical therapy assistant) and I personally participated in the fernandes components. I have discussed the case and management of the patient's care and the note has been revised / addended to reflect my direct input. Clinically improving. No loose stools past 24 hours, joint pain controlled. Plan remains the same. Gael [facility] MD [facility] Medicine Staff PAGER: [phone] DATE of Service: 09/02/2017 TIME of Service: 10:45 AM Previous Version Mitch Wallis OTR/L 09/02/2017 10:41 AM Signed Occupational Therapy Evaluation SERVICE DATE: 09/02/2017 SERVICE TIME: 1000 to 1030 ROOM: [place] [address] Recommended Discharge Disposition: Home Recommended Discharge Disposition [...] No Skilled Need Interventions Provided: Evaluation;Therapeutic Exercise (53137) $ Evaluation-Low (26771) Billed Units: 1 unit Therapeutic Exercise (28783) Treatment Minutes: 15 1 unit Skilled Intervention(s): [...] Lives With: Significant Other Assistance Available: PRN;multimedia coordinator Entry To Home: No Stairs Number Of [...] September 02, 2017 TIME: 10:38 AM PAGER: [phone] Shelia Oviedo RN, RN 09/02/2017 3:42 PM Signed Nursing Progress Note Patient Name: Paloma Cannon Patient Location: G081 023/G081-23 Daily Note: 1540- Patient resting in bed, call light in reach. This note was completed by: JEFF Flowers MD 09/03/2017 1:35 PM [facility] Progress Note PATIENT NAME: Paloma Cannon Interval [...] Ryan MD Internal Medicine PGY-3 Pager: [phone] 11:45 AM 09/03/2017 [facility] STAFF PHYSICIAN NOTE OF PERSONAL INVOLVEMENT IN CARE I have reviewed the documentation obtained and documented by the team healthcare provider (fellow, resident, nurse practitioner or physician pediatric physical therapy assistant) and I personally participated in the fernandes components. I have discussed the case and management of the patient's care and the note has been revised / addended to reflect my direct input. Continues to do well, 2.23 c/s NGTD x2 plt ct has stabilized Plan is for new exchange line next week Gael Simmons MD [facility] Medicine Staff PAGER: [phone] DATE of Service: 09/03/2017 TIME of Service: 1:35 PM Previous Version Sanchez Walker, RN, RN 09/04/2017 7:15 AM Signed Nursing Progress Note Patient Name: Paloma Cannon Patient Location: G081 [id number] Pt left arm cleaned per protocol, Ultrasound [...] 04, 2017 TIME: 11:21 AM PAGER/CONTACT #: [phone] Paulette Naranjo CNP 09/04/2017 11:31 AM Addendum [...] 04, 2017 TIME: 11:23 AM PAGER/CONTACT #: [phone] . Previous Version Dominique Wright MD 09/04/2017 [...] a.m. Ignacio Novak MD 09/04/2017 11:58 AM [facility] Vipul Rupa Progress Note PATIENT NAME: Paloam Cannon Brief Plan for Today - Continue [...] ? Emelia Liu MD PGY-1 Internal Medicine [id number] September 04, 2017 11:34 AM [facility] STAFF PHYSICIAN NOTE OF PERSONAL INVOLVEMENT IN [...] line placement. SIGNATURE: Ignacio Novak MD PAGER: [phone] DATE of SERVICE: September 04, 2017 TIME [...] Medicine PGY-3 Previous Version Anahi Mai DTR CD 09/04/2017 1:03 PM Signed NUTRITION THERAPY FOLLOW-UP [...] September 04, 2017 TIME: 1:00 PM PAGER: [phone] Denise Huffman, RN, RN 09/04/2017 6:31 PM Signed Nursing Progress Note Topic of Note: Daily Note Paloma Quisper [id number] Patient to go to IR tomorrow for a samantha and tunneled dialysis catheter placement. No other issues noted at this time, will monitor. This note was completed by: Denise Huffman RN Progress Notes ([facility] MAIN): Magdalena Lewis CNP, CYTOTECHNOLOGIST SUPERVISOR 08/21/2017 4:28 PM Signed INR today prior to PLEX was 1.5 Message left for patient to take 7.5mg x 2 days, followed by 5mg x 2 days then check INR on 08/25. Attempted to call Morteza (patient's ), phone was no longer in service Magdalena Lewis CNP PROGRESS Observed: 08/21/2017 Status: COMPLETED Source: [place] 4:09 PM [facility] REPOSITORY HNO ID: [id number] Author: Lisseth Claudio MD Service: (none) Author [...] port Return: blue port Medications given: See [facility] audit report. Volume treated: 6563 ml whole blood Volume removed: 6563 ml plasma Volume replaced: 1000 ml NSS and 1545 ml FFP [id number] ACD used 676 ml. 10% calcium gluconate [...] Verdin RN Signed by: Carmita Verdin RN [facility] STAFF PHYSICIAN NOTE OF PERSONAL INVOLVEMENT IN [...] MD August 21, 2017 4:46 PM Pager: [phone] PROGRESS Observed: 08/21/2017 Status: COMPLETED Source: [place] 3:15 PM [facility] REPOSITORY HNO ID: [id number] Author: Elsa Mello (Coord) Service: (none) Author Type: Steel Finisher Type: Progress Notes Filed: 08/21/2017 3:15 PM Note Text: Patient had appointments today at [facility]. I provided a parking pass. Adriana Mello Patient Chain [facility] [phone] / [phone] FACTOR VIII:C ASSAY Collected: 08/21/2017 Status: F Source: [place] 1:17 PM [facility] REPOSITORY TYPE CODE TESTS RESULT OUT [...] months. Performed By: #### FVIIIC, LUPUSP #### [facility] [address] [place] [address] LUPUS ANTICOAG PANEL Collected: 08/21/2017 Status: F Source: [place] 1:17 PM [facility] [place] REPOSITORY TYPE CODE TESTS RESULT OUT OF RANGE REFERENCE UNITS LAB PSEC 9.7-13.0 sec High PT Sec 15.3 LAB INR 0.9-1.3 High PT INR 1.5 Result Comment: Vitamin K Antagonist (VKA) Therapeutic Range: INR 2 to 3 (Target INR of 2.5) Note: For patients treated with VKA drugs, such as warfarin, the [place] [employer]icians 2012 Guideline recommends [...] Chest 2012, 141:7S-47S Diogenes RA, et al. [facility] 2017, 70: 252-289 LAB APTT 23.0-32.4 sec [...] laboratory APTT reagent in use throughout the [facility]. LAB PLTNEU Negative Abnormal Alert PNP Positive [...] The following results were obtained with an [employer] QUANTA Lite JOESPH IgA III JESSICA. Cardiolipin [...] Positive These results were obtained with the [employer] B2 GPI IgM JESSICA. B2 GPI IgM values obtained with different manufacturers' assay methods may not be used interchangeably. The magnitude of the repo rted IgM levels cannot be correlated to an endpoint titer. Performed By: #### FVIIIC, LUPUSP #### [facility] [address] [place] [id number] CBC AND DIFFERENTIAL Collected: 08/21/2017 Status: F Source: [place] 1:16 PM [facility] REPOSITORY TYPE CODE TESTS RESULT OUT [...] Abs 0.20 Low Lymph LAB AMONO % Alexander% 8.7 LAB AAMONO <0.87 k/uL Abs 0.28 Alexander LAB AEOS % 3.1 Eosin% LAB AAEOS <0.46 k/uL Abs 0.10 Eosin LAB ABASO % Baso% 1.2 LAB AABASO <0.11 k/uL Abs 0.04 Baso LAB AUNRBC 0 /100 WBC NRBCs 0.0 LAB ABNRBC <0.01 k/uL <0.01 Absolute nRBC LAB DTYP DTYPE Auto Diff Performed By: #### CBCDIF, CMP #### [facility] [address] [place] [address] COMP METABOLIC PANEL Collected: 08/21/2017 Status: F Source: [place] 1:16 PM [facility] REPOSITORY TYPE CODE TESTS [...] 74-99 mg/dL Glucose 99 Result Comment: The [place] Diabetes Association (ADA) provides guidance for cutoff [...] Standards of Medical Care in Diabetes 2016, [place] Diabetes Association. Diabetes Care. 2016.39(Suppl 1). LAB [...] GFR. Performed By: #### CBCDIF, CMP #### [facility] [address] [place] [id number] CNOVSP Observed: 08/21/2017 Status: COMPLETED Source: [place] 12:30 PM [facility] REPOSITORY Visit (SP) Office ([facility]) PALOMA MARTINEZ ([id number]) 1990 F PTR Date Time Provider Department 08/21/17 12:30 PM APHERESIS DAREK MAIN [facility] During your visit today, we recorded the [...] port Return: blue port Medications given: See [facility] audit report. Volume treated: 6563 ml whole blood Volume removed: 6563 ml plasma Volume replaced: 1000 ml NSS and 1545 ml FFP [id number] ACD used 676 ml. 10% calcium gluconate [...] Verdin RN Signed by: Carmita Verdin RN [facility] STAFF PHYSICIAN NOTE OF PERSONAL INVOLVEMENT IN [...] MD August 21, 2017 4:46 PM Pager: [phone] Referring Provider: LISSETH CLAUDIO [[id number]] Allergies As of Date: 08/21/2017 Noted Allergy [...] Plasmapheresis [1323] Primary Visit Diagnosis:APS (antiphospholipid syndrome) ([facility]) [D68.61] Order(s):LUPUS ANTICOAG PL [SQLUPUSP] Order #: [id number]. #:[id number] CBC + DIFF [SQCBCDIF] Order #: [id number]. #:[id number] COMP METABOLIC PANEL [SQCMP] Order #: [id number]. #:[id number] [facility] NURSING COMMUNICATION [[id number]] Order #: [id number]: 1 TREATMENT PARAMETERS [] Order #: [id number]: 1 [facility] NURSING COMMUNICATION [[id number]] Order #: [id number]: 1 STANDING [] diphenhydrAMINE 50 mg injection [...] daily. FLUTICASONE 50 MCG/ACTUATION * Use 1 Atlantic in each nostril o* WARFARIN 5 MG [...] 08/21/17 HOSP Observed: 08/21/2017 Status: COMPLETED Source: [place] 12:00 AM [facility] REPOSITORY Patient Update ([facility]) PALOMA MARTINEZ ([id number]) 1990 F [facility] Date Time Provider Department 08/21/17 ELSA MELLO (COORD) [facility] During your visit today, we recorded the following information about you: Capri Sandhu 08/21/2017 3:15 PM Signed Patient had appointments today at [facility]. I provided a parking pass. Adriana Mello Patient [facility] [phone] / [phone] Allergies As of Date: 08/21/2017 [...] Assessed Reason for Visit: Cancer Patient Support [6117] Prescriptions as of 08/21/2017 Sig: CYCLOPHOSPHAMIDE 50 [...] daily. FLUTICASONE 50 MCG/ACTUATION * Use 1 Atlantic in each nostril o* WARFARIN 5 MG [...] 08/16/2017 Status: F Source: [place] 8:20 AM [facility] REPOSITORY Order Comment: MEDOUT/PORT DRAW TYPE CODE TESTS RESULT OUT OF REFERENCE UNITS RANGE LAB L300.4150 11.7-14.9 SECONDS High PROTIME 37.8 LAB L300.4200 High alert INR 4.0 Result Comment: CRITICAL VALUE VERIFIED. CALLED TO NADINE PATEL 08/16/17 0915 Zhou Nava. RESULTS READ BACK BY SAME. Performed By: #### L300.3900 #### [facility] [address] [place], [place], [address] PROTHROMBIN TIME W/INR Collected: 08/11/2017 Status: F Source: [place] 8:55 AM [facility] REPOSITORY Order Comment: Order Date: 08/11/17 Comments: FAX RESULTS TO Giacomo LEWIS [phone] TYPE CODE TESTS RESULT OUT OF RANGE REFERENCE UNITS LAB L300.4150 11.7-14.9 SECONDS High PROTIME 29.9 LAB L300.4200 Normal INR 3.0 Performed By: #### L300.3900 #### [facility] [address] [place], [place], [address] PROGRESS Observed: 08/10/2017 Status: COMPLETED Source: [place] 2:01 PM [facility] REPOSITORY HNO ID: [id number] Author: Kem Andujar Service: (none) Author Type: [...] (FLONASE) 50 mcg/actuation nasal spray Use 1 Atlantic in each nostril once daily. warfarin (COUMADIN) [...] your blood pressure is less than 120/80. [employer] [facility] package 30 - 40 mmHg pressure [...] PM PROGRESS Observed: 08/07/2017 Status: COMPLETED Source: [place] 3:40 PM [facility] REPOSITORY HNO ID: [id number] Author: Elsa Mello (Coord) Service: (none) Author Type: Steel Finisher Type: Progress Notes Filed: 08/10/2017 3:40 PM Note Text: Patient had appointments today at [facility]. I provided a parking pass. Adriana Mello Patient [facility] [phone] / [phone] PROGRESS Observed: 08/07/2017 Status: COMPLETED Source: [place] 12:58 PM [facility] REPOSITORY HNO ID: [id number] Author: Lisseth Claudio MD Service: (none) Author [...] indwelling and blue port Medications given: See [facility] audit report. Volume treated: 7995 ml whole [...] 2 weeks Signed by: Angella Ortiz RN [facility] STAFF PHYSICIAN NOTE OF PERSONAL INVOLVEMENT IN [...] MD August 07, 2017 3:49 PM Pager: [phone] CBC AND DIFFERENTIAL Collected: 08/07/2017 Status: F Source: [place] 12:57 PM [facility] REPOSITORY TYPE CODE TESTS [...] Low Abs Lymph 0.14 LAB AMONO % Alexander% 6.2 LAB AAMONO <0.87 k/uL Abs Alexander 0.35 LAB AEOS % Eosin% 1.2 LAB AAEOS <0.46 k/uL Abs Eosin 0.07 LAB ABASO % Baso% 0.5 LAB AABASO <0.11 k/uL Abs Baso 0.03 LAB AUNRBC 0 /100 WBC NRBCs 0.0 LAB ABNRBC <0.01 k/uL Absolute nRBC <0.01 LAB DTYP DTYPE Auto Diff Performed By: #### CBCDIF, CMP, PT #### [facility] [address] [place], [place] [address] COMP METABOLIC PANEL Collected: 08/07/2017 Status: F Source: [place] 12:57 PM [facility] REPOSITORY TYPE [...] 74-99 mg/dL Glucose 96 Result Comment: The [place] Diabetes Association (ADA) provides guidance for cutoff [...] Standards of Medical Care in Diabetes 2016, [place] Diabetes Association. Diabetes Care. 2016.39(Suppl 1). LAB [...] Performed By: #### CBCDIF, CMP, PT #### [facility] [address] [place], [place] [address] PROTIME Collected: 08/07/2017 Status: F Source: [place] 12:57 PM [facility] REPOSITORY TYPE CODE TESTS RESULT OUT OF RANGE REFERENCE UNITS LAB PSEC 9.7-13.0 sec High PT Sec 29.7 LAB INR 0.9-1.3 High PT INR 3.1 Result Comment: Vitamin K Antagonist (VKA) Therapeutic Range: INR 2 to 3 (Target INR of 2.5) Note: For patients treated with VKA drugs, such as warfarin, the [place] College [employer]icians 2012 Guideline recommends [...] Performed By: #### CBCDIF, CMP, PT #### [facility] [address] [place], [place] [address] CNOVSP Observed: 08/07/2017 Status: COMPLETED Source: [place] 12:30 PM [facility] REPOSITORY Visit (SP) Office ([facility]) NELLI CANNONPALOMA ([id number]) 1990 F [facility] Date Time Provider Department 08/07/17 12:30 PM APHERESIS DAREK MAIN [facility] During your visit today, we recorded the [...] indwelling and blue port Medications given: See [facility] audit report. Volume treated: 7995 ml whole [...] 2 weeks Signed by: Angella Ortiz RN [facility] STAFF PHYSICIAN NOTE OF PERSONAL INVOLVEMENT IN [...] MD August 07, 2017 3:49 PM Pager: [phone] Referring Provider: LISSETH CLAUDIO [[id number]] Allergies As of Date: 08/07/2017 Noted Allergy [...] Plasmapheresis [1323] Primary Visit Diagnosis:APS (antiphospholipid syndrome) ([facility]) [D68.61] Order(s):PROTHROMBIN TIME/PT [SQPT] Order #: [id number]. #:[id number] CBC + DIFF [SQCBCDIF] Order #: [id number]. #:[id number] COMP METABOLIC PANEL [SQCMP] Order #: [id number]. #:[id number] [facility] NURSING COMMUNICATION [[id number]] Order #: [id number]: 1 TREATMENT PARAMETERS [[id number]] Order #: [id number]: 1 [facility] NURSING COMMUNICATION [[id number]] Order #: [id number]: 1 STANDING [] diphenhydrAMINE 50 mg injection [...] daily. FLUTICASONE 50 MCG/ACTUATION * Use 1 Atlantic in each nostril o* WARFARIN 5 MG [...] 08/07/17 CNOVSP Observed: 08/07/2017 Status: COMPLETED Source: [place] 12:30 PM [facility] REPOSITORY Visit (SP) Office ([facility]) RITIKAMELISSA PALOMA CANNON ([id number]) 1990 F PTR Date Time Provider Department [...] (FLONASE) 50 mcg/actuation nasal spray Use 1 Atlantic in each nostril once daily. warfarin (COUMADIN) [...] is less than 120/80. [employer] [facility] package 30 - 40 mmHg pressure [...] 2017 2:05 PM Referring Provider: KEM ANDUJAR [[id number]] Allergies As of Date: 08/07/2017 Noted Allergy [...] Fully Assessed Primary Visit Diagnosis:APS (antiphospholipid syndrome) ([facility]) [D68.61] Other Visit Diagnosis:Hypercoagulable state ([facility]) [D68.59] Prescriptions as of 08/07/2017 Sig: CYCLOPHOSPHAMIDE [...] daily. FLUTICASONE 50 MCG/ACTUATION * Use 1 Atlantic in each nostril o* WARFARIN 5 MG [...] 08/10/17 HOSP Observed: 08/07/2017 Status: COMPLETED Source: [place] 12:00 AM [facility] REPOSITORY Patient Update ([facility]) PALOMA MARTINEZ ([id number]) 1990 [facility] Date Time Provider Department 08/07/17 ELSA MELLO (COORD) [facility] During your visit today, we recorded the following information about you: Elsa Mello, Coord 08/10/2017 3:40 PM Signed Patient had appointments today at [facility]. I provided a parking pass. Adriana Mello Patient Chain [facility] [phone] / [phone] Allergies As of Date: 08/07/2017 Noted Allergy [...] daily. FLUTICASONE 50 MCG/ACTUATION * Use 1 Atlantic in each nostril o* WARFARIN 5 MG [...] Priority: D More... DVT (deep venous thrombosis) ([facility]) [I82.409] INVALID FOR*01/11/2017 Priority: D More... Iron [...] 08/04/2017 Status: F Source: [place] 8:05 AM [facility] REPOSITORY Order Comment: MEDOUT/IVT PORT TYPE CODE TESTS RESULT OUT OF RANGE REFERENCE UNITS LAB L300.4150 11.7-14.9 SECONDS High PROTIME 32.3 LAB L300.4200 Normal INR 3.3 Performed By: #### L300.3900 #### [facility] [address] [place], [address] ALLERGIES ALLERGIES DATE TYPE / CODE NAME / CODE REACTION SEVERITY SOURCE 06/10/2018 Drug Iodinated Contrast- renal failure Unknown Micah Allergy/416 Oral and IV Community 238943([facility] Dye/[id number]([facility] ED CT) RM) Repository 06/10/2018 Drug Gadolinium-MRI renal failure Unknown Micah Allergy/416 Contrast Community 356624([facility] Medium/[id number]([facility] ED CT) XNORM) Repository 06/10/2018 Drug rhubarb/[id number]( Hives Unknown Micah Allergy/416 RXNORM) Community 426428([facility] ED CT) Repository 06/10/2018 Drug rituximab/[id number] Other Unknown Bryson Allergy/416 6(RXNORM) Community 770855([facility] ED CT) Repository 06/10/2018 Drug heparin/[id number]( HIT Unknown Bryson Allergy/416 RXNORM) Community 460468([facility] ED CT) Repository 11/14/2017 DRUG CHLORHEXIDINE RASH [facility] INGREDI/[address] [place] 958452([facility] Repository ED CT) 11/09/2016 DRUG RITUXIMAB OTHER: SEE [facility] INGREDI/419 Other [place] 366822([facility] Repository ED CT) 2016 DRUG IODINE OTHER: SEE [facility] INGREDI/419 Other [place] 103203([facility] Repository ED CT) 10/24/2013 DRUG RHUBARB RASH [facility] INGREDI/419 Other [place] 585420([facility] Repository ED CT) 10/24/2013 DRUG HEPARIN OTHER: SEE [facility] INGREDI/419 Other [place] 178415([facility] Repository ED CT) ENCOUNTERS ENCOUNTERS ADMIT/DISCHARGE ACCOUNT ADMITTING ENCOUNTER LOCATION SOURCE NUMBER CLASS 07/23/2018/ [id number] Inpatient [facility] 019 Encounter [facility] [place] Repository 07/09/2018/ [id number] Inpatient [facility] 019 Encounter Clinic [facility] [place] Repository 06/25/2018/ [id number] Inpatient [facility] 018 Encounter Clinic [facility] [place] Repository 06/22/2018 [id number] ESTELA HULL Inpatient [facility] Encounter Clinic [facility] [place] Repository 06/22/2018 [id number] Ambulatory [facility] ding:MEDOUTP Repository 06/19/2018/ [id number] Emergency [facility] 018 [facility] ding:ED Repository 06/18/2018 [id number] Ambulatory [facility] ding:MEDOUTP Repository 06/15/2018 [id number] Ambulatory [facility] ding:MEDOUTP Repository 06/14/2018/ [id number] Emergency [facility] 018 [facility] [place] Repository 06/12/2018/ [id number] Ambulatory [facility] 018 [facility] [place] Repository 06/11/2018/ [id number] Ambulatory [facility] 018 [facility] Main [place] Repository 06/10/2018/ [id number] Emergency [address] Hospital ding:ED Repository 06/08/2018 [id number] Ambulatory [facility] ding:MEDOUTP Repository 06/05/2018/ [id number] WILLARD MARTÍNEZ Inpatient [place] 018 Encounter Clinic [facility] [place] Repository 06/04/2018/ [id number] Emergency [facility] 018 [facility] ding:ED Repository 06/04/2018 [id number] Ambulatory [facility] ding:MEDOUTP Repository 05/28/2018/ [id number] Ambulatory Bass 018 [facility] Main [place] Repository 05/18/2018 [id number] Ambulatory [facility] ding:MEDOUTP Repository 05/14/2018/ [id number] ESTELA HULL Inpatient [facility] 018 [facility] [place] Repository 05/14/2018/ [id number] Ambulatory [facility] 018 [facility] [place] Repository 05/11/2018/ [id number] Ambulatory [place] 018 [facility] [place] Repository 05/11/2018 [id number] Ambulatory [facility] ding:MEDOUTP Repository 05/08/2018/ [id number] Ambulatory [facility] 018 [facility] [place] Repository 05/06/2018/ [id number] Emergency [facility] 018 [facility] [place] Repository 05/06/2018/ [id number] Emergency [place] 018 [facility] [place] Repository 05/04/2018 [id number] Ambulatory [facility] ding:MEDOUTP Repository 05/01/2018/ [id number] Inpatient [facility] 018 [facility]counter [facility] [place] Repository 04/28/2018/ [id number] BIRD BRADSHAW Inpatient [place] 018 Encounter [facility] [place] Repository 04/27/2018 [id number] Ambulatory [facility] ding:MEDOUTP Repository 04/24/2018/ [id number] Emergency [address] ding:ED Repository 04/24/2018/ [id number] Ambulatory BMSBuilding: Micah 018 [facility] Repository 04/23/2018 [id number] Ambulatory [facility] ding:MEDOUTP Repository 04/20/2018 [id number] Ambulatory [facility] ding:MEDOUTP Repository 04/18/2018/ [id number] Ambulatory [facility] 018 [facility] [place] Repository 04/16/2018/ [id number] Ambulatory [place] 018 [facility] [place] Repository 04/12/2018 [id number] Ambulatory [facility] ding:MEDOUTP Repository 04/09/2018 [id number] Ambulatory [facility] ding:MEDOUTP Repository 04/05/2018 [id number] Ambulatory [facility] ding:MEDOUTP Repository 03/19/2018/ [id number] Ambulatory [facility] 018 [facility] [place] Repository 03/14/2018/ [id number] Ambulatory [place] 018 [facility] [place] Repository 03/05/2018/ [id number] Inpatient Bass 018 [facility]counter [facility] [place] Repository 02/19/2018/ [id number] Inpatient [place] 018 Encounter [facility] [place] Repository 02/13/2018/ [id number] Ambulatory [place] 018 [facility] [place] Repository 02/09/2018 [id number] Ambulatory [facility] ding:MEDOUTP Repository 02/06/2018/ [id number] Inpatient Bass 018 Encounter [facility] [place] Repository 02/03/2018/ [id number] Ambulatory [place] 018 [facility] [place] Repository 02/03/2018 [id number] Ambulatory [facility] [place] Repository 02/02/2018 [id number] Ambulatory [facility] ding:MEDOUTP Repository 01/29/2018/ [id number] Ambulatory [place] 018 [facility] [place] Repository 01/29/2018 [id number] Inpatient Bass Encounter [facility] [place] Repository 01/26/2018 [id number] Ambulatory [facility] ding:MEDOUTP Repository 01/24/2018/ [id number] Inpatient [place] 018 Encounter [facility] [place] Repository 01/23/2018/ [id number] Ambulatory [place] 018 [facility] [place] Repository 01/22/2018/ [id number] KWESI MANRIQUEZ Inpatient [place] 018 Encounter [facility] [place] Repository 01/22/2018/ [id number] Ambulatory [place] 018 [facility] [place] Repository 01/22/2018/ [id number] Ambulatory [place] 018 [facility] [place] Repository 01/22/2018/ [id number] Ambulatory [place] 018 [facility] [place] Repository 01/22/2018/ [id number] Ambulatory [place] 018 [facility] [place] Repository 01/22/2018/ [id number] Ambulatory [place] 018 [facility] [place] Repository 01/19/2018 [id number] Ambulatory [facility] ding:MEDOUTP Repository 01/12/2018 [id number] Ambulatory [facility] ding:MEDOUTP Repository 01/08/2018/2 [id number] Ambulatory [place] 018 [facility] [place] Repository 01/08/2018/ [id number] Ambulatory Bsas 018 [facility] Main [place] Repository 01/05/2018 [id number] Ambulatory [facility] ding:MEDOUTP Repository 01/05/2018 [id number] Ambulatory [facility] ding:MEDOUTP Repository 01/02/2018 [id number] Ambulatory [facility] ding:MEDOUTP Repository 01/01/2018/2 [id number] Ambulatory [place] 018 [facility] [place] Repository 12/29/2017 [id number] Ambulatory [facility] ding:MEDOUTP Repository 12/25/2017/ [id number] Ambulatory [place] 018 [facility] [place] Repository 12/22/2017 [id number] Ambulatory [facility] ding:MEDOUTP Repository 12/21/2017/ [id number] Ambulatory [place] 018 [facility] [place] Repository 12/19/2017 [id number] [facility] Repository 12/18/2017/ [id number] Ambulatory [place] 018 [facility] [place] Repository 12/18/2017/ [id number] Ambulatory [place] 018 [facility] [place] Repository 12/12/2017/ [id number] Inpatient Bass 018 Encounter [facility] Main [place] Repository 12/08/2017/ [id number] Ambulatory [place] 018 [facility] [place] Repository 12/08/2017/ [id number] Ambulatory [place] 018 [facility] [place] Repository 12/07/2017/ [id number] Ambulatory [place] 018 [facility] [place] Repository 12/05/2017/ [id number] Ambulatory [place] 018 [facility] [place] Repository 12/05/2017/ [id number] Ambulatory [place] 018 [facility] [place] Repository 12/05/2017/ [id number] Ambulatory [place] 018 [facility] [place] Repository 12/04/2017/ [id number] NAVA, Inpatient [place] 018 JOSE Encounter [facility] [place] Repository 12/02/2017/ [id number] GAEL VIEIRA Ambulatory [place] 018 OTTO [facility] [place] Repository 11/27/2017/ [id number] MCKENNARADHAERIN, Inpatient [place] 018 NARENDRAKUMAR Encounter Clinic [facility] [place] Repository 11/13/2017/ [id number] Inpatient Bass 018 Encounter [facility] [place] Repository 11/03/2017/ [id number] ERAN, Inpatient [place] 018 NARENDRAKUMAR Encounter Clinic [facility] [place] Repository 11/02/2017/ [id number] MCKENNARADHAERIN, Ambulatory [place] 018 NARENDRAKUMAR Clinic [facility] [place] Repository 10/27/2017/ [id number] MCEKNNARADHAERIN, Ambulatory [place] 018 NARENDRAKUMAR Clinic [facility] [place] Repository 10/25/2017/ [id number] ERAN, Inpatient [place] 018 NARENDRAKUMAR Encounter Clinic [facility] [place] Repository 10/23/2017/ [id number] SAPNA WYATT Inpatient [place] 018 Encounter Clinic Other [place] Repository 10/23/2017/ [id number] Emergency [address] ding:ED Repository 10/20/2017 [id number] Ambulatory [facility] ding:MEDOUTP Repository 10/18/2017/ [id number] Inpatient [place] 018 Encounter [facility] [place] Repository 10/16/2017/ [id number] Inpatient Bass 018 Encounter Clinic [facility] [place] Repository 10/14/2017/ [id number] Ambulatory [place] 018 [facility] [place] Repository 10/14/2017/ [id number] Ambulatory [place] 018 [facility] [place] Repository 10/13/2017/ [id number] ROS CHRISTIE Inpatient [place] 018 Encounter [facility] [place] Repository 10/13/2017/ [id number] Emergency [address] ding:ED Repository 10/13/2017 [id number] Ambulatory BMSBuilding: [facility] Repository 10/13/2017 [id number] Ambulatory [facility] ding:MEDOUTP Repository 10/09/2017 [id number] Ambulatory [facility] ding:MEDOUTP Repository 10/06/2017 [id number] Ambulatory [facility] ding:MEDOUTP Repository 10/02/2017/ [id number] Inpatient Rob[place] 018 Encounter [facility] Main [place] Repository 09/29/2017/ [id number] AUSTEN CHOUDHURY Inpatient [place] 018 R Encounter [facility] Main [place] Repository 09/29/2017 [id number] Ambulatory [facility] ding:MEDOUTP Repository 09/27/2017/ [id number] Ambulatory [place] 018 Clinic [facility] [place] Repository 09/27/2017/ [id number] Ambulatory [place] 018 Clinic [facility] [place] Repository 09/22/2017 [id number] Ambulatory [facility] ding:MEDOUTP Repository 09/18/2017/ [id number] Ambulatory [place] 018 [facility] [place] Repository 09/15/2017 [id number] Ambulatory [facility] ding:MEDOUTP Repository 09/12/2017/ [id number] Ambulatory [place] 018 Clinic [facility] [place] Repository 09/11/2017/ [id number] Ambulatory [place] 018 Clinic [facility] [place] Repository 09/11/2017 [id number] Ambulatory [facility] Main [place] Repository 09/11/2017/ [id number] Ambulatory [place] 018 Clinic [facility] [place] Repository 09/11/2017 [id number] Ambulatory [facility] ding:MEDOUTP Repository 09/08/2017 [id number] Ambulatory [facility] ding:MEDOUTP Repository 09/06/2017/ [id number] Inpatient Bass 018 Encounter [facility] [place] Repository 09/01/2017 [id number] Ambulatory [facility] ding:MEDOUTP Repository 08/25/2017/ [id number] LISSETH HANKS Inpatient Bass 018 Encounter [facility] Main [place] Repository 08/25/2017 [id number] Ambulatory [facility] ding:MEDOUTP Repository 08/21/2017/ [id number] Ambulatory [place] 018 [facility] [place] Repository 08/16/2017 [id number] Ambulatory [facility] ding:MEDOUTP Repository 08/11/2017 [id number] [facility] ding:MEDOUTP Repository 08/07/2017/ [id number] Ambulatory [place] 018 [facility] [place] Repository 08/07/2017/ [id number] Ambulatory [place] 018 [facility] [place] Repository 08/04/2017 [id number] [facility] ding:MEDOUTP Repository PAYERS PAYERS ENCOUNTER GUARANTOR PAYER SUBSCRIBER SOURCE 06/22/2018 PALOMA [id number] Insurance:[facility] OLIVERDOB: [address] *IN [facility] [id number] Hospital [address]Bie: (330) Number: Repository [phone] () [id number] Date:4695-27-03AIXU CLAIMS [address] [place] [address]YA: 06/22/[address] [facility] Insurance:SELF PAY [facility] Number: Effective Repository Date:2018-06-18 06/19/2018 PALOMA [id number] [facility] OLIVERDOB: [address] *IN [facility] [id number] Hospital [address]Gjn: (330) Number: Repository [phone] () [id number] Date:1871-62-65QQKI [place]S [address] [address]PR: 06/19/2018 Secondary NOT GIVENUNK Bryson Insurance:SELF PAY [facility] Number: Effective Repository Date:2018-06-19 06/18/2018 PALOMA Aguilar [id number] Primary PALOMA Aguilar [facility] [address] Insurance:[facility] OLIVERDOB: [id number], [place] [facility] [id number] Hospital [address]Auy: (330) Number: Repository [phone] () [id number] Date:2192-30-31TRYW [place]S [address] [address]UF: 06/18/2018 Secondary NOT GIVENUNK Bryson Insurance:SELF PAY [facility] Number: Effective Repository Date:2018-06-15 06/15/2018 PALOMA Aguilar [id number] Primary PALOMA Lauren [facility] [address] Insurance:[facility] OLIVERDOB: Community [id number], [place] [facility] [id number] Hospital [address]Xht: (330) Number: Repository [phone] () [id number] Date:5932-43-64QIQQ [place]S [address] [address]LC: 06/15/2018 Secondary NOT GIVENUNK Bryson Insurance:SELF PAY [facility] Number: Effective Repository Date:2018-06-12 06/10/2018 PALOMA Aguilar [id number] Primary PALOMA Aguilar [facility] [address] Insurance:[facility] OLIVERDOB: [place] [id number], [place] [facility] [id number] Hospital [address]Gpb: (330) Number: Repository [phone] () [id number] Date:1833-26-08LVQV [place]S [address] [address]AE: 06/10/2018 Secondary NOT GIVENUNK Micah Insurance:SELF PAY [facility] Number: Effective Repository Date:2018-06-10 06/08/2018 PALOMA Aguilar [id number] Primary PALOMA [address] Insurance:[facility] OLIVERDOB: Community [address], [place] *IN [facility] [id number] Hospital [address]Uyv: (330) Number: Repository [phone] () [id number] Date:7089-16-26KMZG CLAIMS [address] [place] [address]CM: 06/08/2018 Secondary NOT GIVENUNK Bryson Insurance:SELF PAY [facility] Number: Effective Repository Date:2018-06-04 06/04/2018 PALOMA Aguilar [id number] Primary [address]OMA [address] Insurance:[facility] [place]IVERDOB: [address], [place] *[place] [facility] [id number] Hospital [address]Qgk: (330) Number: Repository [phone] () [id number] Date:7307-62-31UIOW CLAIMS [address] [place] [address]ZW: 06/04/2018 Secondary NOT GIVENUNK Micah Insurance:SELF PAY [facility] Number: Effective Repository Date:2018-06-04 06/04/2018 PALOMA Aguilar [id number] Primary PALOMA [address] Insurance:[facility] [facility] OLIVERDOB: Community [address] [facility] [id number] Hospital [address]Rcq: (330) Number: Repository [phone] () [id number] Date:5524-81-86BJSD CLAIMS [address], [place] [address]PY: 06/04/2018 Secondary NOT GIVENUNK Micah Insurance:SELF PAY [facility] Number: Effective Repository Date:2018-06-04 05/18/2018 PALOMA Aguilar [id number] Primary PALOMA [address] Insurance:[facility] [place]IVERDOB: [place] [id number], [place] [facility] [id number] Hospital [address]Opi: (330) Number: Repository [phone] () [id number] Date:9569-88-26KGPL CLAIMS [address], [place] [address]LS: 05/18/2018 Secondary NOT GIVENUNK Micah Insurance:SELF PAY [facility] Number: Effective Repository Date:2018-05-02 05/11/2018 PALOMA Aguilar [id number] Primary [facility] [address] Insurance:[facility] OLIVERDOB: Community [id number], [place] [facility] [id number] Hospital [address]Jgl: (330) Number: Repository [phone] () [id number] Date:5130-26-67HFNU CLAIMS [address], [place] [address]ZZ: 05/11/2018 Secondary NOT GIVENUNK Bryson Insurance:SELF PAY [facility] Number: Effective Repository Date:2018-04-27 05/04/2018 PALOMA Aguilar [id number] Primary [facility] [address] Insurance:[facility] OLIVERDOB: Community [id number], [place] [facility] [id number] Hospital [address]Ddp: (330) Number: Repository [phone] () [id number] Date:0472-71-25KTLZ CLAIMS [address], [place] [address]NV: 05/04/2018 Secondary NOT GIVENUNK Bryson Insurance:SELF PAY [facility] Number: Effective Repository Date:2018-04-20 04/27/2018 PALOMA Aguilar [id number] Primary [facility] [address] Insurance:[facility] OLIVERDOB: Community [id number], [place] [facility] [id number] Hospital [address]Pww: (330) Number: Repository [phone] () [id number] Date:9817-85-60ZMLW CLAIMS [address] [place] [address]HT: 04/27/2018 Secondary NOT GIVENUNK Bryson Insurance:SELF PAY [facility] Number: Effective Repository Date:2018-04-20 04/24/2018 PALOMA [id number] Primary PALOMA [address] Insurance:[facility] [place]IVERDOB: [place] [id number], [place] [facility] [id number] Hospital [address]Xjq: (330) Number: Repository [phone] () [id number] Date:3238-28-98FNAK CLAIMS [address] [place] [address]KW: 04/24/2018 Secondary PALOMA M Micah Insurance:MEDICARE OLIVERDOB: [facility] PART A [facility] [id number] Hospital Number: Repository [id number] Date:2018-04-24 04/24/2018 Tertiary NOT GIVENUNK Micah Insurance:SELF PAY [facility] Number: Effective Repository Date:2018-04-24 04/24/2018 PALOMA Aguilar [id number] Primary PALOMA [address] Insurance:[facility] [place]DOB: [place] [facility] [id number] Hospital [address]Wii: (330) Number: Repository [phone] () [id number] Date:1989FOKY CLAIMS [address] [place] [address]GA: 04/24/2018 Secondary PALOMA M Micah Insurance:MEDICAIDPol OLIVERDOB: Community icy Number: [id number] Hospital [id number] Repository Date:2018-04-24 04/24/2018 Tertiary NOT GIVENUNK Micah Insurance:SELF PAY [facility] Number: Effective Repository Date:2018-04-24 04/23/2018 PALOMA [id number] Primary PALOMA [facility] [address] Insurance:[facility] [place]DOB: [place] [facility] [id number] Hospital [address]Tqq: (330) Number: Repository [phone] () [id number] Date:7186-90-96JROW CLAIMS [address], [place] [address]OQ: 04/23/2018 Secondary NOT GIVENUNK Bryson Insurance:SELF PAY [facility] Number: Effective Repository Date:2018-04-23 04/20/2018 PALOMA Aguilar [id number] Primary PALOMA Obrien [address] [place] [address] Insurance:[facility] OLIVERDOB: Community [id number], [place] [facility] [id number] Hospital [address]Vww: (330) Number: Repository [phone] () [id number] Date:2674-48-94EICD CLAIMS [address], [place] [address]CN: 04/20/2018 Secondary NOT GIVENUNK Bryson Insurance:SELF PAY [facility] Number: Effective Repository Date:2018-04-20 04/12/2018 PALOMA Aguilar [id number] Primary PALOMA Obrien [address] Insurance:[facility] [place]IVERDOB: [place] [id number], [place] [facility] [id number] Hospital [address]Bga: (330) Number: Repository [phone] () [id number] Date:8999-39-16VRTG CLAIMS [address], [place] [address]OF: 04/12/2018 Secondary NOT GIVENUNK Bryson Insurance:SELF PAY [facility] Number: Effective Repository Date:2018-04-11 04/09/2018 PALOMA Aguilar [id number] Primary PALOMA Lauren [facility] [address] Insurance:[facility] [place]IVERDOB: Community [id number], [place] [facility] [id number] Hospital 85652Adv: (330) Number: Repository [phone] () [id number] Date:6065-83-08KEXG CLAIMS [address], [place] [address]BW: 04/09/2018 Secondary NOT GIVENUNK Bryson Insurance:SELF PAY [facility] Number: Effective Repository Date:2018-04-04 04/05/2018 PALOMA Aguilar [id number] Primary PALOMA [address] Insurance:[facility] [place]IVERDOB: Community [id number], [place] [facility] [id number] Hospital [address]Uze: (330) Number: Repository [phone] () [id number] Date:5028-21-03OGEA CLAIMS [address] [address]CF: 04/05/2018 Secondary NOT GIVENUNK Micah Insurance:SELF PAY [facility] Number: Effective Repository Date:2018-04-04 02/09/2018 PALOMA Aguilar [id number] Primary PALOMA Aguilar [facility] [address] Insurance:[facility] [place]IVERDOB: Community [id number], [place] [facility] [id number] Hospital [address]Mim: (330) Number: Repository [phone] () [id number] Date:3456-30-12GKGY CLAIMS [address] [address]LK: 02/09/2018 Secondary NOT GIVENUNK Micah Insurance:SELF PAY [facility] Number: Effective Repository Date:2018-01-25 02/02/2018 PALOMA Aguilar [id number] Primary PALOMA Obrien [address] Insurance:[facility] [facility] [place]IVERDOB: Community [id number], [place] [facility] [id number] Hospital 279[address]Ris: (330) Number: Repository [phone] () [id number] Date:8839-79-52GVAY CLAIMS [address] [address]YB: 02/02/2018 Secondary NOT GIVENUNK Bryson Insurance:SELF PAY [facility] Number: Effective Repository Date:2018-01-25 01/26/2018 PALOMA Aguilar [id number] Primary PALOMA [address] Insurance:[facility] [place]DOB: [place] [id number], [place] [facility] [id number] Hospital [address]Bfo: (330) Number: Repository [phone] () [id number] Date:3561-92-63PLHQ CLAIMS [address], [place] [address]GK: 01/26/2018 Secondary NOT GIVENUNK Bryson Insurance:SELF PAY [facility] Number: Effective Repository Date:2018-01-25 01/19/2018 PALOMA Aguilar [id number] Primary PALOMA [address] Insurance:[facility] [place]IVERDOB: [place] [id number], [place] [facility] [id number] Hospital 26[address]Raa: (330) Number: Repository [phone] () [id number] Date:8100-38-27RCQF CLAIMS [address], [place] [address]XU: 01/19/2018 Secondary NOT GIVENUNK Micah Insurance:SELF PAY [facility] Number: Effective Repository Date:2018-01-05 01/12/2018 PALOMA Aguilar [id number] Primary PALOMA [address] Insurance:[facility] [place]IVERDOB: Community [id number], [place] [facility] [id number] Hospital [address]Sdm: (330) Number: Repository [phone] () [id number] Date:9985-02-57GZAC CLAIMS [address], [place] [address]TJ: 01/12/2018 Secondary NOT GIVENUNK Bryson Insurance:SELF PAY [facility] Number: Effective Repository Date:2018-01-05 01/05/2018 PALOMA Aguilar [id number] Primary PALOMA [address] Insurance:[facility] [place]IVERDOB: Community [id number], [place] [facility] [id number] Hospital 201[address]Bve: (330) Number: Repository [phone] () [id number] Date:4581-64-12NKML CLAIMS [address]PO [address] [address]DU: 01/05/2018 Secondary NOT GIVENUNK Micah Insurance:SELF PAY [facility] Number: Effective Repository Date:2017-12-29 01/05/2018 PALOMA Aguilar [id number] Primary PALOMA [address] Insurance:[facility] [facility] [place]IVERDOB: Community [id number], [place] [facility] [id number] Hospital [address]Bxa: (330) Number: Repository [phone] () [id number] Date:6382-79-34MNPE CLAIMS [address] [address]RS: 01/05/2018 Secondary NOT GIVENUNK Bryson Insurance:SELF PAY [facility] Number: Effective Repository Date:2018-01-05 01/02/2018 PALOMA Aguilar [id number] [facility] [place]IVERDOB: Community [id number], [place] [facility] [id number] Hospital [address]Fzl: (330) Number: Repository [phone] () [id number] Date:9574-71-32ZNWB CLAIMS [address] [address]KQ: 01/02/2018 Secondary NOT GIVENUNK Micah Insurance:SELF PAY [facility] Number: Effective Repository Date:2018-01-01 12/29/2017 PALOMA Aguilar [id number] Primary PALOMA Obrien [address] Insurance:[employer] [facility] OLIVERDOB: Community [id number], [place] [facility] [id number] Hospital [address]Ytw: (330) Number: Repository [phone] () [id number] Date:2415-91-31QNMH CLAIMS [address], [place] [address]FJ: 12/29/2017 Secondary NOT GIVENUNK Micah Insurance:SELF PAY [facility] Number: Effective Repository Date:2017-12-28 12/22/2017 PALOMA Aguilar [id number] Primary PALOMA Obrien [address] Insurance:[facility] [facility] [place]IVERDOB: [place] [id number], [place] [facility] [facility] [id number] Hospital [address]Nja: Number: Repository [phone] [id number] (HP) Date:1463-55-56TVJW [address]S [address] [address]AA: 12/22/2017 Secondary NOT GIVENUNK Bryson Insurance:SELF PAY [facility] Number: Effective Repository Date:2017-12-21 12/19/2017 PALOMA Aguilar [id number] Primary PALOMA Lauren [facility] [address] Insurance:MYCARE CRSC OLIVERDOB: [id number], [place] [facility] [id number] Hospital [address]Xfr: Number: Repository [phone] [id number] (HP) Date:[id number] CLAIMS DEPT[address] [place] [address]ZL: 12/19/2017 Secondary NOT GIVENUNK Bryson Insurance:SELF PAY [facility] Number: Effective Repository Date:2017-12-18 10/23/2017 PALOMA Aguilar [id number] Primary PALOMA Aguilar [facility] [address] Insurance:MYCARE CRSC [place]IVERDOB: [place] [facility] [id number] Hospital [address]Prj: Number: Repository [phone] [id number] (HP) Date:4664-10-47YAWO [address]S [address] [address]VH: 10/23/2017 Secondary NOT GIVENUNK Micah Insurance:SELF PAY [facility] Number: Effective Repository Date:2017-10-23 10/20/2017 PALOMA Aguilar [id number] Primary PALOMA Aguilar [facility] [address] Insurance:MYCARE CRSC OLIVERDOB: [id number], [place] [facility] [id number] Hospital [address]Kfh: Number: Repository [phone] [id number] (HP) Date:4608-99-02JXPH CLAIMS [address] [place] [address]SG: 10/20/2017 Secondary NOT GIVENUNK Bryson Insurance:SELF PAY [facility] Number: Effective Repository Date:2017-10-13 10/13/2017 PALOMA [id number] Primary [facility] [address] Insurance:MYCARE CRSC OLIVERDOB: [id number], [place] [facility] [id number] Hospital [address]Hhf: Number: Repository [phone] [id number] (HP) Date:7032-23-51FZOC CLAIMS [address] [place] [address]XJ: 10/13/2017 Secondary NOT GIVENUNK Bryson Insurance:SELF PAY [facility] Number: Effective Repository Date:2017-10-13 10/13/2017 PALOMA [id number] Primary [facility] [address] Insurance:MYCARE CRSC OLIVERDOB: [id number], [place] [facility] [id number] Hospital [address]Rpi: Number: Repository [phone] [id number] (HP) Date:[id number] CLAIMS DEPTPO [address] [place] [address]QZ: 10/13/2017 Secondary NOT GIVENUNK Bryson Insurance:SELF PAY [facility] Number: Effective Repository Date:2017-10-13 10/13/2017 PALOMA [id number] Primary [facility] [address] Insurance:MYCARE CRSC OLIVERDOB: Community [id number], [place] [facility] [id number] Hospital [address]Kpz: Number: Repository [phone] [id number] (HP) Date:7062-28-86VDGW CLAIMS [address]PTPO [address] [place] [address]YQ: 10/13/2017 Secondary NOT GIVENUNK Bryson Insurance:SELF PAY [facility] Number: Effective Repository Date:2017-10-09 10/09/2017 PALOMA Aguilar [id number] Primary [address] Insurance:[facility]ARE [facility] OLIVERDOB: Community [id number] WOLF *IN [facility] [id number] Hospital [address]Kxu: Number: Repository [phone] [id number] (HP) Date:7418-54-28SSQK CLAIMS DEPTPO [address] [place] [address]GW: 10/09/2017 Secondary NOT GIVENUNK Micah Insurance:SELF PAY [facility] Number: Effective Repository Date:2017-10-06 10/06/2017 PALOMA Aguilar [id number] Primary [address] Insurance:MEDICARE OLIVERDOB: Community [address] A [facility] [id number] Hospital [address]Dmy: Number: Repository [phone] [id number] (HP) Date:2017-09-29 10/06/2017 Secondary PALOMA Jacksonoster Insurance:MEDICAIDPol OLIVERDOB: Community icy Number: [id number] Hospital [id number] Repository Date:2017-09-29 10/06/2017 Tertiary NOT GIVENUNK Micah Insurance:SELF PAY [facility] Number: Effective Repository Date:2017-09-29 09/29/2017 PALOMA Aguilar [id number] Primary [address]OMA [address] Insurance:MEDICARE OLIVERDOB: Community [address] PART A [facility] [id number] Hospital [address]Qqe: Number: Repository [phone] [id number] (HP) Date:2017-09-22 09/29/2017 Secondary PALOMA M Micah Insurance:MEDICAIDPol OLIVERDOB: Community icy Number: [id number] Hospital [id number] Repository Date:2017-09-22 09/29/2017 Tertiary NOT GIVENUNK Bryson Insurance:SELF PAY [facility]: Effective Repository Date:2017-09-22 09/22/2017 PALOMA Aguilar [id number] Primary [address]OMA [address] Insurance:MEDICARE OLIVERDOB: Community [address] PART A olic [id number] Hospital [address]Ird: Number: Repository [phone] [id number] (HP) Date:2017-09-22 09/22/2017 Secondary PALOMA Aguilar Micah Insurance:MEDICAIDPol OLIVERDOB: [facility] icy Number: [id number] Hospital [id number] Repository Date:2017-09-22 09/22/2017 Tertiary NOT GIVENUNK Micah Insurance:SELF PAY [facility] Number: Effective Repository Date:2017-09-22 09/15/2017 PALOMA Aguilar [id number] Primary PALOMA [address] Insurance:MEDICARE OLIVERDOB: [address] PART A olic [id number] Hospital [address]Yhd: Number: Repository [phone] [id number] (HP) Date:2017-09-08 09/15/2017 Secondary PALOMA Aguilar Bryson Insurance:MEDICAIDPol OLIVERDOB: [facility] icy Number: [id number] Hospital [id number] Repository Date:2017-09-08 09/15/2017 Tertiary NOT GIVENUNK Micah Insurance:SELF PAY [facility] Number: Effective Repository Date:2017-09-08 09/11/2017 PALOMA Aguilar [id number] Primary PALOMA [address] Insurance:MEDICARE OLIVERDOB: Community [address] PART A olic [id number] Hospital [address]Ogg: Number: Repository [phone] [id number] (HP) Date:2017-09-08 09/11/2017 Secondary PALOMA Aguilar Bryson Insurance:MEDICAIDPol OLIVERDOB: Community icy Number: [id number] Hospital [id number] Repository Date:2017-09-08 09/11/2017 Tertiary NOT GIVENUNK Bryson Insurance:SELF PAY [facility] Number: Effective Repository Date:2017-09-08 09/08/2017 PALOMA Aguilar [id number] Primary PALOMA [address] Insurance:MEDICARE OLIVERDOB: [address] PART A [facility] [id number] Hospital [address]Wph: [phone] Number: Repository [phone] () [id number] Date:2017-08-31 09/08/2017 Secondary PALOMA Aguilar Bryson Insurance:MEDICAIDPol OLIVERDOB: Community icy Number: [id number] Hospital [id number] Repository Date:2017-08-31 09/08/2017 Tertiary NOT GIVENUNK Bryson Insurance:SELF PAY [facility] Number: Effective Repository Date:2017-08-31 09/01/2017 PALOMA [id number] Primary PALOMA OLIVERDOB: Bryson [address] Insurance:MEDICARE [id number] [address] PART A [facility] [address]Gdn: Number: Repository [phone] [id number] (HP) Date:2017-08-25 09/01/2017 Secondary PALOMA OLIVERDOB: Bryson Insurance:MEDICAIDPol [id number] [facility] icy Number: Hospital [id number] Repository Date:2017-08-25 09/01/2017 Tertiary NOT GIVENUNK Micah Insurance:SELF PAY [facility] Number: Effective Repository Date:2017-08-25 08/25/2017 PALOMA [id number] Primary PALOMA OLIVERDOB: Micah [address] Insurance:MEDICARE [id number] [address] PART A [facility] [address]Whe: Number: Repository [phone] [id number] (HP) Date:2017-08-18 08/25/2017 Secondary PALOMA OLIVERDOB: Micah Insurance:MEDICAIDPol [id number] Community icy Number: Hospital [id number] Repository Date:2017-08-18 08/25/2017 Tertiary NOT GIVENUNK Bryson Insurance:SELF PAY [facility] Number: Effective Repository Date:2017-08-18 08/16/2017 PALOMA [id number] Primary PALOMA [address] Insurance:MEDICARE OLIVERDOB: Community [address] PART A [facility] [id number] Hospital [address]Rzd: [phone] Number: Repository [phone] () [id number] Date:2017-08-11 08/16/2017 Secondary PALOMA Aguilar Micah Insurance:MEDICAIDPol OLIVERDOB: Community icy Number: [id number] Hospital [id number] Repository Date:2017-08-11 08/16/2017 Tertiary NOT GIVENUNK Micah Insurance:SELF PAY [facility] Number: Effective Repository Date:2017-08-11 08/11/2017 PALOMA [id number] Primary PALOMA OLIVERDOB: Bryson [address] Insurance:MEDICARE [id number] PART A [facility] [address]Szp: Number: Repository [phone] [id number] (HP) Date:2017-07-31 08/11/2017 Secondary PALOMA OLIVERDOB: Bryson Insurance:MEDICAIDPol [id number] Community icy Number: Hospital [id number] Repository Date:2017-07-31 08/11/2017 Tertiary NOT GIVENUNK Bryson Insurance:SELF PAY [facility] Number: Effective Repository Date:2017-07-31 08/04/2017 PALOMA Aguilar [id number] Primary PALOMA [address] Insurance:MEDICARE OLIVERDOB: Community [address] PART A [facility] [id number] Hospital [address]Zmz: Number: Repository [phone] [id number] (HP) Date:2017-07-28 08/04/2017 Secondary PALOMA Aguilar Bryson Insurance:MEDICAIDPol OLIVERDOB: Community icy Number: [id number] Hospital [id number] Repository Date:2017-07-28 08/04/2017 Tertiary NOT GIVENUNK Bryson Insurance:SELF PAY [facility] Number: Effective Repository Date:2017-07-28
== END 2018-06-20 00:03 | disposition home or self-care (01) ==
PROVIDERS: Emergency Provider Emergency Medicine; Family Provider Internal Medicine; PCP Internal Medicine
DX: E83.59 Other disorders of calcium metabolism (principal); M79.605 Pain in left leg; G89.29 Other chronic pain; I12.9 Hypertensive chronic kidney disease with stage 1 through stage 4 chronic kidney disease, or unspecified chronic kidney disease; N18.3 Chronic kidney disease, stage 3 (moderate); D68.61 Antiphospholipid syndrome; R20.0 Anesthesia of skin; Z99.2 Dependence on renal dialysis; Z79.01 Long term (current) use of anticoagulants; Z79.891 Long term (current) use of opiate analgesic; Z79.52 Long term (current) use of systemic steroids; Z79.899 Other long term (current) drug therapy; Z86.718 Personal history of other venous thrombosis and embolism
CPT/HCPCS: 36415; 85610; 96372; 99282; A4216

== ENCOUNTER → 2018-08-10 09:54 | Outpatient (CLI) | payer MEDICARE, SELFPAY ==
[2018-08-10 10:39] LABS: International Normalized Ratio 1.1; Prothrombin Time (Protime)PT. 14.6 SECONDS (11.7-14.9)
== END ==
PROVIDERS: Family Provider Internal Medicine; PCP Internal Medicine; Referring Provider Nurse Practitioner Adult Health; Visit Provider Nurse Practitioner Adult Health
DX: D75.82 Heparin induced thrombocytopenia (HIT) (principal); Z86.718 Personal history of other venous thrombosis and embolism
CPT/HCPCS: 36415; 36592; 85610; A4216

== ENCOUNTER → 2018-08-14 08:55 | Outpatient (CLI) | payer MEDICARE, SELFPAY ==
[2018-08-14 09:45] LABS: International Normalized Ratio 1.6; Prothrombin Time (Protime)PT. 19.3 SECONDS (11.7-14.9)
== END ==
PROVIDERS: Family Provider Internal Medicine; PCP Internal Medicine; Referring Provider Nurse Practitioner Adult Health; Visit Provider Nurse Practitioner Adult Health
DX: D75.82 Heparin induced thrombocytopenia (HIT) (principal); Z86.718 Personal history of other venous thrombosis and embolism
CPT/HCPCS: 36592; 85610; A4216

== ENCOUNTER → 2018-08-17 07:43 | Outpatient (CLI) | payer MEDICARE, SELFPAY ==
[2018-08-17 08:14] LABS: International Normalized Ratio 1.6; Prothrombin Time (Protime)PT. 18.8 SECONDS (11.7-14.9)
== END ==
PROVIDERS: Family Provider Internal Medicine; PCP Internal Medicine; Referring Provider Nurse Practitioner Adult Health; Visit Provider Nurse Practitioner Adult Health
DX: D75.82 Heparin induced thrombocytopenia (HIT) (principal); Z86.718 Personal history of other venous thrombosis and embolism
CPT/HCPCS: 36415; 36592; 85610; A4216

== ENCOUNTER → 2018-08-24 07:34 | Outpatient (CLI) | payer MEDICARE, SELFPAY ==
[2018-08-24 08:22] LABS: International Normalized Ratio 2.2; Prothrombin Time (Protime)PT. 24.6 SECONDS (11.7-14.9)
== END ==
PROVIDERS: Family Provider Internal Medicine; PCP Internal Medicine; Referring Provider Nurse Practitioner Adult Health; Visit Provider Nurse Practitioner Adult Health
DX: D75.82 Heparin induced thrombocytopenia (HIT) (principal); Z86.718 Personal history of other venous thrombosis and embolism
CPT/HCPCS: 36415; 36592; 85610; A4216

== ENCOUNTER → 2018-08-28 10:46 | Outpatient (CLI) | payer MEDICARE, SELFPAY ==
[2018-08-28 11:49] LABS: International Normalized Ratio 2.6; Prothrombin Time (Protime)PT. 27.9 SECONDS (11.7-14.9)
== END ==
PROVIDERS: Family Provider Internal Medicine; PCP Internal Medicine; Referring Provider Nurse Practitioner Adult Health; Visit Provider Nurse Practitioner Adult Health
DX: D75.82 Heparin induced thrombocytopenia (HIT) (principal); Z86.718 Personal history of other venous thrombosis and embolism
CPT/HCPCS: 36592; 85610; A4216

== ENCOUNTER → 2018-09-10 09:00 | Outpatient (CLI) | payer MEDICARE, SELFPAY ==
[2018-09-10 09:52] LABS: International Normalized Ratio 1.1; Prothrombin Time (Protime)PT. 14.4 SECONDS (11.7-14.9)
== END ==
PROVIDERS: Family Provider Internal Medicine; PCP Internal Medicine; Visit Provider Nurse Practitioner Adult Health
DX: D75.82 Heparin induced thrombocytopenia (HIT) (principal); Z86.718 Personal history of other venous thrombosis and embolism
CPT/HCPCS: 36592; 85610; A4216

== ENCOUNTER → 2018-09-21 07:54 | Outpatient (CLI) | payer MEDICARE, SELFPAY ==
[2018-09-21 08:27] LABS: International Normalized Ratio 2.2; Prothrombin Time (Protime)PT. 24.5 SECONDS (11.7-14.9)
== END ==
PROVIDERS: Family Provider Internal Medicine; PCP Internal Medicine; Visit Provider Nurse Practitioner Adult Health
DX: D75.82 Heparin induced thrombocytopenia (HIT) (principal); Z86.718 Personal history of other venous thrombosis and embolism
CPT/HCPCS: 36592; 85610; A4216

== ENCOUNTER → 2018-09-24 08:02 | Outpatient (CLI) | payer MEDICARE, SELFPAY | PROVIDERS: Family Provider Internal Medicine; PCP Internal Medicine; Visit Provider Nurse Practitioner Adult Health | DX: D75.82 Heparin induced thrombocytopenia (HIT) (principal); Z86.718 Personal history of other venous thrombosis and embolism | CPT/HCPCS: A4216 ==

== ENCOUNTER → 2018-09-28 07:56 | Outpatient (CLI) | payer MEDICARE, SELFPAY ==
[2018-09-28 08:27] LABS: International Normalized Ratio 2.2; Prothrombin Time (Protime)PT. 24.1 SECONDS (11.7-14.9)
== END ==
PROVIDERS: Family Provider Internal Medicine; PCP Internal Medicine; Visit Provider Nurse Practitioner Adult Health
DX: D75.82 Heparin induced thrombocytopenia (HIT) (principal); Z86.718 Personal history of other venous thrombosis and embolism
CPT/HCPCS: 36592; 85610; A4216

== ENCOUNTER → 2018-10-08 11:00 | Outpatient (CLI) | payer MEDICARE, SELFPAY ==
[2018-10-08 11:46] LABS: Prothrombin Time (Protime)PT. 22.7 SECONDS (11.7-14.9)
== END ==
PROVIDERS: Family Provider Internal Medicine; PCP Internal Medicine; Visit Provider Nurse Practitioner Adult Health
DX: D75.82 Heparin induced thrombocytopenia (HIT) (principal); Z86.718 Personal history of other venous thrombosis and embolism
CPT/HCPCS: 36592; 85610; A4216

== ENCOUNTER 2018-10-14 21:53 | Emergency (ER) | payer MEDICARE, SELFPAY ==
[2018-10-14 21:53] VITALS: BP 131/75; PULSE 145; RESP 18; TEMP 39; O2SAT 98; BMI 37.7
[2018-10-14 23:11] VITALS: BP 126/69; PULSE 110; RESP 15; TEMP 37.5; O2SAT 100
--- NOTE | 2018-10-14 23:53 | EKG12_ITS ---
Test Reason : FEVER Blood Pressure : / mmHG Vent. Rate : 107 BPM Atrial Rate : 107 BPM P-R Int : 162 ms QRS Dur : 084 ms QT Int : 354 ms P-R-T Axes : 009 -10 035 degrees QTc Int : 472 ms Sinus tachycardia Minimal voltage criteria for LVH, may be normal variant Inferior infarct , age undetermined Cannot rule out Anterior infarct , age undetermined Abnormal ECG Confirmed by AHSAN MAST, GAEL ([id number]), newspaper photo editor JO BRAMBILA ([id number]) on 10/17/2018 1:11:30 PM Referred By: YISSEL Confirmed By:GAEL FOREMAN MD
[2018-10-15] VITALS (8 sets, daily range): BP systolic 123–131; BP diastolic 66–82; PULSE 104–108; RESP 15–22; TEMP 37.8–38.4; O2SAT 100
[2018-10-15] MEDS: 0.9% Normal Saline 1,000 ML 999 ML IV (00:27)
[2018-10-15 00:28] LABS: International Normalized Ratio 2.1; Prothrombin Time (Protime)PT. 23.3 SECONDS (11.7-14.9)
--- NOTE | 2018-10-15 00:28 | RAD_ITS ---
STUDY: X-RAY CHEST REASON FOR EXAM: Female, 28 years old. Fever TECHNIQUE: 1 view COMPARISON: October 13, 2017 FINDINGS: There is mild cardiomegaly with no acute pneumonia or failure. No pleural effusions. A dialysis catheter present through the left subclavian vein is seen with the tip in the right atrium. Normal visualized thoracic spine. Normal visualized ribs, clavicles, and shoulders. There is no demonstrated abnormality of the visualized soft tissue structures of the upper abdomen. RAD/Chest 1 View (Portable) IMPRESSION: Mild cardiomegaly. No acute findings in the lungs. Electronically Signed: Blaine Burrows MD at 0:47 EDT Tel , Service support ,
[2018-10-15 00:29] LABS: Partial Thromboplast Time 49.6 Seconds (24.1-36.2)
[2018-10-15 00:30] LABS: Absolute Lymphocyte Count 0.42 X10^3/ul (0.83-4.51); Absolute Neutrophil Count 13.3 X10^3/uL (2.0-7.7); Basophil# 0.02 X10^3/uL; Basophil% 0.1 % (0-1); Eosinophil# 0.21 X10^3/uL; Eosinophils% 1.5 % (0-5); Hematocrit 33.7 % (37-47); Lymphocyte # 0.42 X10^3/ul (4.0); Lymphocyte % 2.9 % (19-41); Mean Corp Hgb Conc 32.6 g/gl (32-36); Mean Corpuscular Hgb 27.8 pg (27.0-32.0); Mean Corpuscular Volume 85.1 fL (81-99); Mean Platelet Vol. 10.1 fl (6.2-12.0); Monocyte# 0.52 X10^3/uL; Monocyte% 3.6 % (0-10); Neutrophil # 13.25 X10^3/uL (2.7-7.7); Neutrophil % 91.8 % (47-70); Platelet Count 103 K/mm3 (150-450); RBC Distribution Width CV 14.6 % (11.6-14.6); RBC Distribution Width SD 45.5 fl (35.1-43.9); Red Blood Count 3.96 M/mm3 (4.2-5.4); White Blood Count 14.4 K/mm3 (4.4-11.0)
[2018-10-15 00:32] LABS: ALB/GLOB Ratio 1.2 RATIO (0.9-2.4); AST(SGOT) 23 U/L (15-37); Alanine Aminotransfer ALT/SGPT 22 U/L (13-56); Albumin, Serum 3.3 g/dL (3.2-5.0); Alkaline Phosphatase 86 U/L (45-117); Anion Gap 7 (5-15); BUN 22 mg/dL (7-18); BUN/Creat Ratio 19.5 RATIO (10-20); Calcium,Total 8.4 mg/dL (8.5-10.1); Chloride 106 mmol/L (98-107); Creatinine, Serum 1.13 mg/dL (0.55-1.02); EST Glomerular Filtration Rate 60 mL/min (>60); Est Glom Filt Rate - Afr Amer 73 mL/min (>60); Estimated Creatinine Clearance 60.77 ml/min; Globulin 2.8 g/dL (2.2-4.2); Glucose 111 mg/dL (74-106); Potassium 3.5 mmol/L (3.5-5.1); Protein, Total 6.1 g/dL (6.4-8.2); Sodium Level 139 mmol/L (136-145)
[2018-10-15 00:35] LABS: Differential Indicated SCAN CRITERIA MET; POSITIVE COUNT NO; POSITIVE DIFFERENTIAL YES; POSITIVE MORPHOLOGY NO
[2018-10-15 00:39] LABS: Lactic Acid 1.7 mmol/L (0.4-2.0)
[2018-10-15 01:06] LABS: Differential Comment SCANNED
[2018-10-15 02:00] LABS: Mucous, Urine 0 SEEN /hpf (<or=2+)
--- NOTE | 2018-10-15 02:00 | PCM.HP.STD ---
History of Present Illness The patient is a 28 year old F [] Past Medical History Past Medical History (Chronic Problems): Chronic Problems Hypertension (Chronic) Thrombocytopenia (Chronic) Chronic anemia (Chronic) History of alveolar hemorrhage (Chronic) History of deep vein thrombosis (DVT) of lower extremity (Chronic) Antiphospholipid antibody syndrome (Chronic) Morbid obesity (Chronic) Chronic renal failure, stage 3 (moderate) (Chronic) Steroid dependence (Chronic) Allergies heparin Allergy (Verified 10/14/18 22:44) HIT rhubarb Allergy (Verified 10/14/18 22:44) Hives Gadolinium-MRI Contrast Medium [CONTRAST] Adverse Reaction (Verified 10/14/18 22:44) RENAL FAILURE Iodinated Contrast- Oral and IV Dye [CONTRASTS] Adverse Reaction (Verified 10/14/18 22:44) RENAL FAILURE rituximab Adverse Reaction (Verified 10/14/18 22:44) Other PT STATES WHEN SHE TOOK THE FULL DOSE OF THE MEDICATION IT INCREASED HER HEART ENZYMES. Home Medications: Ambulatory Orders Medication Instructions Recorded predniSONE tablet 5 mg PO DAILY 09/29/16 Docusate Sodium [Colace] 100 mg PO BID PRN 12/10/16 Carvedilol 12.5 mg PO BID 04/24/18 DiphenhydrAMINE [Benadryl] 25 mg PO PRN PRN 04/24/18 Losartan Potassium 25 mg PO DAILY 04/24/18 Warfarin Sodium 5 mg PO DAILY 04/24/18 NIFEdipine [Procardia Xl] 60 mg PO DAILY 06/04/18 Duloxetine Hcl [Cymbalta] 90 mg PO DAILY 10/14/18 Ondansetron [Zofran Odt] 4 mg PO Q6H PRN PRN 10/14/18 Pamidronate Disodium 30 mg IV QWEEK 10/14/18 Pregabalin [Lyrica] 200 mg PO TID 10/14/18 Surgical History: - - IVC filter placement Smoking Status: Never smoker - *Family History Maternal History Items: Cancer Paternal History Items: No pertinent history - Physical Exam Vital Signs Temp Pulse Resp BP Pulse Ox 100.1 F H 107 H 21 H 126/80 H 100 10/15/18 01:18 10/15/18 01:18 10/15/18 01:18 10/15/18 01:18 10/15/18 01:18 Oxygen Flow Rate (L/min) 2 Oxygen Delivery Method Nasal Cannula Weight: 96.6 kg Body Mass Index (BMI) 37.7 Finger Stick Blood Glucose 127 Laboratory Tests Past 24 Hrs 10/15/18 10/15/18 10/15/18 00:05 00:05 00:05 WBC 14.4 H RBC 3.96 L Hgb 11.0 L Hct 33.7 L MCV 85.1 MCH 27.8 MCHC 32.6 RDW 14.6 RDW Differential 45.5 H Plt Count 103 L MPV 10.1 Immature Gran % (Auto) 0.100 Neut % (Auto) 91.8 H Lymph % (Auto) 2.9 L [place] % (Auto) 3.6 Eos % (Auto) 1.5 Baso % (Auto) 0.1 Absolute Neuts (auto) 13.3 H Absolute Lymphs (auto) 0.42 L Total Counted Not Reportable Differential Comment SCANNED PT 23.3 H INR 2.1 APTT 49.6 H Sodium 139 Potassium 3.5 Chloride 106 Carbon Dioxide 26.0 Anion Gap 7 BUN 22 H Creatinine 1.13 H Estim Creat Clear Calc 60.77 Est GFR (MDRD) Af Amer 73 Est GFR (MDRD) Non-Af 60 BUN/Creatinine Ratio 19.5 Glucose 111 H Lactic Acid Calcium 8.4 L Total Bilirubin 0.50 AST 23 ALT 22 Alkaline Phosphatase 86 Total Protein 6.1 L Albumin 3.3 Globulin 2.8 Albumin/Globulin Ratio 1.2 Urine Color Urine Clarity Urine pH Ur Specific [place] Urine Protein Urine Glucose (UA) Urine Ketones Urine Occult Blood Urine Nitrite Urine Bilirubin Urine Urobilinogen Ur Leukocyte Esterase Urine RBC Urine WBC Ur Squamous Epith Cells Urine Bacteria Urine Mucus 10/15/18 10/15/18 00:05 01:55 WBC RBC Hgb Hct MCV MCH MCHC RDW RDW Differential Plt Count MPV Immature Gran % (Auto) Neut % (Auto) Lymph % (Auto) [place] % (Auto) Eos % (Auto) Baso % (Auto) Absolute Neuts (auto) Absolute Lymphs (auto) Total Counted Differential Comment PT INR APTT Sodium Potassium Chloride Carbon Dioxide Anion Gap BUN Creatinine Estim Creat Clear Calc Est GFR (MDRD) Af Amer Est GFR (MDRD) Non-Af BUN/Creatinine Ratio Glucose Lactic Acid 1.7 Calcium Total Bilirubin AST ALT Alkaline Phosphatase Total Protein Albumin Globulin Albumin/Globulin Ratio Urine Color Pending Urine Clarity Pending Urine pH Pending Ur Specific [place] Pending Urine Protein Pending Urine Glucose (UA) Pending Urine Ketones Pending Urine Occult Blood Pending Urine Nitrite Pending Urine Bilirubin Pending Urine Urobilinogen Pending Ur Leukocyte Esterase Pending Urine RBC Pending Urine WBC Pending Ur Squamous Epith Cells Pending Urine Bacteria Pending Urine Mucus Pending Assessment/Plan All Active Problems HIT (heparin-induced thrombocytopenia) (Resolved) Sepsis (Acute) Gram-negative pneumonia (Acute) HCAP (healthcare-associated pneumonia) (Acute) Diffuse pulmonary alveolar hemorrhage (Acute) Acute on chronic anemia (Acute)
[2018-10-15 02:11] LABS: Color, Urine Yellow (Yellow); Glucose, Dipstick Normal (Normal); Ketone-Dipstick Negative (Negative); Leukocyte Esterase-Dipstick 500 /ul (Negative); Nitrite-Dipstick Positive (Negative); Occult Blood-Urine 50 /ul (Negative); Protein-Dipstick 30 mg/dl (Negative); Urine Clarity Sl. Cloudy (Clear); Urine Urobilinogen Normal (Normal)
[2018-10-15 02:14] LABS: Urine Bilirubin Dipstick 1 mg/dL (Negative)
[2018-10-15 02:38] LABS: Bacteria 3+ /hpf (None Seen); Red Blood Cells-Urine 0-5 SEEN /hpf (0-5); Squamous Epithelial Cells - UA 0-5 SEEN /hpf (5-10); White Blood Cells 50-100 SEEN /hpf (0-5)
--- NOTE | 2018-10-15 03:20 | ED.VISSUMM ---
- ER Visit Summary Date of Service: 10/15/18 Chief Complaint: Fever History of Present Illness: The patient is a 28 F history of chronic anemia chronic indwelling PICC line and plasmapheresis line in the left chest. And severe antiphospholipid syndrome. He is on Coumadin for that. She has had PICC line infections in the past. Denies any cough, sore throat, chest pain, abdominal pain nor any nausea, vomiting or diarrhea. No dysuria. Physical Examination: Vital signs stable. Initial blood pressure 126/69. Currently her temperature 995. She did take antipyretic prior to arrival. Pulse ox 90% on room air no signs of hypoxia. HEENT exam unremarkable. Neck nontender no lymphadenopathy. Lungs clear to auscultation bilaterally. Heart regular rhythm rate about 110 no murmur. Left chest wall picc lines of the plasmapheresis line. No redness, discoloration or warmth. No discharge. Site looks clean. Abdomen soft and nontender. Moving all 4 extremities. Neurovascular intact. No redness or warmth. Back exam nontender. Neurologically she is awake and alert with no focal motor deficits. Test Results: Chest x-ray borderline cardiomegaly otherwise unremarkable. To L indwelling lines on the left. EKG sinus tachycardia rate of 107. White blood cell count elevated 14.4. Hemoglobin 11. Platelet count 103 which is her baseline. Electrolytes unremarkable normal creatinine and gap. Liver enzymes normal. She is on Coumadin her INR is 2.1. Lactic acid 1.7. Her urine is consistent with infection with white cells 50-100, 3+ bacteria and positive nitrates. Emergency Department Course and Treatment: Patient treated with IV fluids. Initially given vancomycin for possible line infection. And also started on Rocephin for the UTI. Treatment Plan: Patient was going to be admitted here however she is scheduled for plasmapheresis tomorrow and will be transferred to the [facility]. I very spoken to their physician in a transfer alignment awaiting acceptance. Disposition: Transfer to [facility] Impression: Acute fever Acute UTI Rule out PICC line infection History of antiphospholipid syndrome Anticoagulated on Coumadin Chronic anemia and thrombocytopenia This note was generated with NotaryActation software. It may contain incorrect words, spelling, and punctuation that were not noted in review of the chart prior to signing ED Disposition - Plan for ED Patient: Referrals: Peyton López MD [Primary Care Provider] -
--- NOTE | 2018-10-15 03:26 | ED.DCSUM_ITS ---
- ER Visit Summary Date of Service: 10/15/18 Chief Complaint: Fever History of Present Illness: The patient is a 28 F history of chronic anemia chronic indwelling PICC line and plasmapheresis line in the left chest. And severe antiphospholipid syndrome. He is on Coumadin for that. She has had PICC line infections in the past. Denies any cough, sore throat, chest pain, abdominal pain nor any nausea, vomiting or diarrhea. No dysuria. Physical Examination: Vital signs stable. Initial blood pressure 126/69. Currently her temperature 995. She did take antipyretic prior to arrival. Pulse ox 90% on room air no signs of hypoxia. HEENT exam unremarkable. Neck nontender no lymphadenopathy. Lungs clear to auscultation bilaterally. Heart regular rhythm rate about 110 no murmur. Left chest wall picc lines of the plasmapheresis line. No redness, discoloration or warmth. No discharge. Site looks clean. Abdomen soft and nontender. Moving all 4 extremities. Neurovascular intact. No redness or warmth. Back exam nontender. Neurologically she is awake and alert with no focal motor deficits. Test Results: Chest x-ray borderline cardiomegaly otherwise unremarkable. To L indwelling lines on the left. EKG sinus tachycardia rate of 107. White blood cell count elevated 14.4. Hemoglobin 11. Platelet count 103 which is her baseline. Electrolytes unremarkable normal creatinine and gap. Liver enzymes normal. She is on Coumadin her INR is 2.1. Lactic acid 1.7. Her urine is consistent with infection with white cells 50-100, 3+ bacteria and positive nitrates. Emergency Department Course and Treatment: Patient treated with IV fluids. Initially given vancomycin for possible line infection. And also started on Rocephin for the UTI. Treatment Plan: Patient was going to be admitted here however she is scheduled for plasmapheresis tomorrow and will be transferred to the [facility]. I very spoken to their physician in a transfer alignment awaiting acceptance. Disposition: Transfer to [facility] Impression: Acute fever Acute UTI Rule out PICC line infection History of antiphospholipid syndrome Anticoagulated on Coumadin Chronic anemia and thrombocytopenia This note was generated with AirXpandersation software. It may contain incorrect words, spelling, and punctuation that were not noted in review of the chart prior to signing ED Disposition - Plan for ED Patient: Referrals: Peyton López MD [Primary Care Provider] -
[2018-10-15] MEDS: Ceftriaxone 1 GM/50 ML BAG IV (03:31)
[2018-10-15] MEDS: Acetaminophen 500 MG Tablet 1000 MG PO (03:59)
[2018-10-15] MEDS: Morphine 4 MG/ML Syringe IV (04:01)
[2018-10-15] MEDS: Ondansetron 4 MG/2 ML Vial IV (04:01)
--- NOTE | 2018-10-15 04:06 | NURSING ---
ACCEPTED TO [place] [id number] BED
[2018-10-15 04:13] LABS: Lactic Acid 0.9 mmol/L (0.4-2.0)
== END 2018-10-15 04:39 | disposition home or self-care (01) ==
PROVIDERS: Emergency Provider Emergency Medicine; Family Provider Internal Medicine; PCP Internal Medicine
DX: R50.9 Fever, unspecified (principal); N39.0 Urinary tract infection, site not specified; D68.61 Antiphospholipid syndrome; D64.9 Anemia, unspecified; D69.6 Thrombocytopenia, unspecified; Z79.01 Long term (current) use of anticoagulants; Z79.52 Long term (current) use of systemic steroids; Z79.899 Other long term (current) drug therapy
CPT/HCPCS: 36415; 36592; 71045; 80053; 81001; 83605; 85025; 85610; 85730; 87040; 87086; 87088; 87186; 93005; 96365; 96366; 96367; 96375; 99284; J7030; J7040; A4216; J2405

== ENCOUNTER → 2018-10-19 09:08 | Outpatient (CLI) | payer MEDICARE, SELFPAY ==
[2018-10-14 21:53] VITALS: BMI 37.7
[2018-10-19 09:41] LABS: International Normalized Ratio 1.8; Prothrombin Time (Protime)PT. 20.4 SECONDS (11.7-14.9)
== END ==
PROVIDERS: Family Provider Internal Medicine; PCP Internal Medicine; Visit Provider Nurse Practitioner Adult Health
DX: D75.82 Heparin induced thrombocytopenia (HIT) (principal); I82.409 Acute embolism and thrombosis of unspecified deep veins of unspecified lower extremity
CPT/HCPCS: 36592; 85610; A4216

== ENCOUNTER → 2018-10-22 13:39 | Outpatient (CLI) | payer MEDICARE, SELFPAY ==
[2018-10-14 21:53] VITALS: BMI 37.7
[2018-10-22 14:23] LABS: International Normalized Ratio 2.5; Prothrombin Time (Protime)PT. 26.7 SECONDS (11.7-14.9)
== END ==
PROVIDERS: Family Provider Internal Medicine; PCP Internal Medicine; Visit Provider Nurse Practitioner Adult Health
DX: D75.82 Heparin induced thrombocytopenia (HIT) (principal); I82.409 Acute embolism and thrombosis of unspecified deep veins of unspecified lower extremity
CPT/HCPCS: 36592; 85610; A4216

== ENCOUNTER → 2018-11-02 09:53 | Outpatient (CLI) | payer MEDICARE, SELFPAY ==
[2018-10-14 21:53] VITALS: BMI 37.7
[2018-11-02 13:57] LABS: International Normalized Ratio 1.8; Prothrombin Time (Protime)PT. 21.1 SECONDS (11.7-14.9)
== END ==
PROVIDERS: Family Provider Internal Medicine; PCP Internal Medicine; Visit Provider Nurse Practitioner Adult Health
DX: D75.82 Heparin induced thrombocytopenia (HIT) (principal); I82.409 Acute embolism and thrombosis of unspecified deep veins of unspecified lower extremity
CPT/HCPCS: 36592; 85610; A4216

== ENCOUNTER → 2018-11-16 14:15 | Outpatient (CLI) | payer MEDICARE, SELFPAY ==
[2018-11-16 14:53] LABS: International Normalized Ratio 1.7; Prothrombin Time (Protime)PT. 19.8 SECONDS (11.7-14.9)
== END ==
PROVIDERS: Family Provider Internal Medicine; PCP Internal Medicine; Referring Provider Nurse Practitioner Adult Health; Visit Provider Nurse Practitioner Adult Health
DX: I82.409 Acute embolism and thrombosis of unspecified deep veins of unspecified lower extremity (principal); D75.82 Heparin induced thrombocytopenia (HIT)
CPT/HCPCS: 36592; 85610; A4216

== ENCOUNTER → 2018-11-23 09:46 | Outpatient (CLI) | payer MEDICARE, SELFPAY ==
[2018-11-23 10:32] LABS: International Normalized Ratio 4.2; Prothrombin Time (Protime)PT. 40.6 SECONDS (11.7-14.9)
== END ==
PROVIDERS: Family Provider Internal Medicine; PCP Internal Medicine; Referring Provider Nurse Practitioner Adult Health; Visit Provider Nurse Practitioner Adult Health
DX: D75.82 Heparin induced thrombocytopenia (HIT) (principal); I82.409 Acute embolism and thrombosis of unspecified deep veins of unspecified lower extremity
CPT/HCPCS: 36592; 85610; A4216

== ENCOUNTER → 2018-12-07 08:20 | Outpatient (CLI) | payer MEDICARE, SELFPAY | PROVIDERS: Family Provider Internal Medicine; PCP Internal Medicine; Referring Provider Nurse Practitioner Adult Health; Visit Provider Nurse Practitioner Adult Health | DX: D75.82 Heparin induced thrombocytopenia (HIT) (principal); I82.409 Acute embolism and thrombosis of unspecified deep veins of unspecified lower extremity | CPT/HCPCS: 36592; 85610; A4216 ==

== ENCOUNTER → 2018-12-17 12:33 | Outpatient (CLI) | payer MEDICARE, SELFPAY ==
[2018-12-17 13:12] LABS: International Normalized Ratio 1.9; Prothrombin Time (Protime)PT. 21.5 SECONDS (11.7-14.9)
== END ==
PROVIDERS: Family Provider Internal Medicine; PCP Internal Medicine; Referring Provider Nurse Practitioner Adult Health; Visit Provider Nurse Practitioner Adult Health
DX: D75.82 Heparin induced thrombocytopenia (HIT) (principal); I82.409 Acute embolism and thrombosis of unspecified deep veins of unspecified lower extremity
CPT/HCPCS: 36591; 85610; A4216

== ENCOUNTER → 2018-12-21 10:19 | Outpatient (CLI) | payer MEDICARE, SELFPAY ==
[2018-12-21 11:04] LABS: International Normalized Ratio 1.8; Prothrombin Time (Protime)PT. 20.8 SECONDS (11.7-14.9)
== END ==
PROVIDERS: Family Provider Internal Medicine; PCP Internal Medicine; Referring Provider Nurse Practitioner Adult Health; Visit Provider Nurse Practitioner Adult Health
DX: D75.82 Heparin induced thrombocytopenia (HIT) (principal); I82.409 Acute embolism and thrombosis of unspecified deep veins of unspecified lower extremity
CPT/HCPCS: 36592; 85610; A4216

== ENCOUNTER → 2018-12-28 07:56 | Outpatient (CLI) | payer MEDICARE, SELFPAY ==
[2018-12-28 08:52] LABS: International Normalized Ratio 2.2; Prothrombin Time (Protime)PT. 24.5 SECONDS (11.7-14.9)
== END ==
PROVIDERS: Family Provider Internal Medicine; PCP Internal Medicine; Referring Provider Nurse Practitioner Adult Health; Visit Provider Nurse Practitioner Adult Health
DX: D75.82 Heparin induced thrombocytopenia (HIT) (principal); I82.409 Acute embolism and thrombosis of unspecified deep veins of unspecified lower extremity
CPT/HCPCS: 36592; 85610; A4216

== ENCOUNTER → 2019-01-04 12:56 | Outpatient (CLI) | payer MEDICARE, SELFPAY ==
[2019-01-04] MEDS: Alteplase 2 MG/2 ML Vial IV (13:58)
[2019-01-04 14:55] LABS: International Normalized Ratio 2.2; Prothrombin Time (Protime)PT. 24.7 SECONDS (11.7-14.9)
== END ==
PROVIDERS: Family Provider Internal Medicine; PCP Internal Medicine; Referring Provider Nurse Practitioner Adult Health; Visit Provider Nurse Practitioner Adult Health
DX: D75.82 Heparin induced thrombocytopenia (HIT) (principal); I82.409 Acute embolism and thrombosis of unspecified deep veins of unspecified lower extremity
CPT/HCPCS: 36592; 36593; 85610; J2997; A4216

== ENCOUNTER → 2019-01-18 11:04 | Outpatient (CLI) | payer MEDICARE, SELFPAY ==
[2019-01-18 11:46] LABS: International Normalized Ratio 1.4; Prothrombin Time (Protime)PT. 17.4 SECONDS (11.7-14.9)
== END ==
PROVIDERS: Family Provider Internal Medicine; PCP Internal Medicine; Referring Provider Nurse Practitioner Adult Health; Visit Provider Nurse Practitioner Adult Health
DX: D75.82 Heparin induced thrombocytopenia (HIT) (principal); I82.409 Acute embolism and thrombosis of unspecified deep veins of unspecified lower extremity
CPT/HCPCS: 36592; 85610; A4216

== ENCOUNTER → 2019-01-25 10:36 | Outpatient (CLI) | payer MEDICARE, SELFPAY ==
[2019-01-25 11:29] LABS: International Normalized Ratio 2.8; Prothrombin Time (Protime)PT. 29.3 SECONDS (11.7-14.9)
== END ==
PROVIDERS: Family Provider Internal Medicine; PCP Internal Medicine; Referring Provider Nurse Practitioner Adult Health; Visit Provider Nurse Practitioner Adult Health
DX: I82.409 Acute embolism and thrombosis of unspecified deep veins of unspecified lower extremity (principal)
CPT/HCPCS: 36592; 85610; A4216

== ENCOUNTER → 2019-02-01 13:40 | Outpatient (CLI) | payer MEDICARE, SELFPAY ==
[2019-02-01 15:08] LABS: International Normalized Ratio 1.7; Prothrombin Time (Protime)PT. 19.8 SECONDS (11.7-14.9)
== END ==
PROVIDERS: Family Provider Internal Medicine; PCP Internal Medicine; Referring Provider Nurse Practitioner Adult Health; Visit Provider Nurse Practitioner Adult Health
DX: D75.82 Heparin induced thrombocytopenia (HIT) (principal); I82.409 Acute embolism and thrombosis of unspecified deep veins of unspecified lower extremity
CPT/HCPCS: 36592; 85610; A4216

== ENCOUNTER → 2019-02-11 14:26 | Outpatient (CLI) | payer MEDICARE, SELFPAY ==
[2019-02-11 15:06] LABS: International Normalized Ratio 2.2; Prothrombin Time (Protime)PT. 24.4 SECONDS (11.7-14.9)
== END ==
PROVIDERS: Family Provider Internal Medicine; PCP Internal Medicine; Referring Provider Nurse Practitioner Adult Health; Visit Provider Nurse Practitioner Adult Health
DX: D75.82 Heparin induced thrombocytopenia (HIT) (principal); I82.409 Acute embolism and thrombosis of unspecified deep veins of unspecified lower extremity
CPT/HCPCS: 36592; 85610; A4216

== ENCOUNTER → 2019-02-22 13:19 | Outpatient (CLI) | payer MEDICARE, SELFPAY ==
[2019-02-22 14:02] LABS: International Normalized Ratio 2.9; Prothrombin Time (Protime)PT. 30.4 SECONDS (11.7-14.9)
== END ==
PROVIDERS: Family Provider Internal Medicine; PCP Internal Medicine; Referring Provider Nurse Practitioner Adult Health; Visit Provider Nurse Practitioner Adult Health
DX: D75.82 Heparin induced thrombocytopenia (HIT) (principal); I82.409 Acute embolism and thrombosis of unspecified deep veins of unspecified lower extremity
CPT/HCPCS: 36592; 85610; A4216

== ENCOUNTER → 2019-03-01 14:06 | Outpatient (CLI) | payer MEDICARE, SELFPAY ==
[2019-03-01 14:53] LABS: International Normalized Ratio 2.2; Prothrombin Time (Protime)PT. 24.5 SECONDS (11.7-14.9)
== END ==
PROVIDERS: Family Provider Internal Medicine; PCP Internal Medicine; Referring Provider Nurse Practitioner Adult Health; Visit Provider Nurse Practitioner Adult Health
DX: D75.82 Heparin induced thrombocytopenia (HIT) (principal); I82.409 Acute embolism and thrombosis of unspecified deep veins of unspecified lower extremity
CPT/HCPCS: 36415; 36592; 85610; A4216

== ENCOUNTER → 2019-03-08 14:30 | Outpatient (CLI) | payer MEDICARE, SELFPAY ==
[2019-03-08 15:16] LABS: Absolute Lymphocyte Count 1.16 X10^3/uL (0.83-4.51); Absolute Neutrophil Count 5.5 X10^3/uL (2.0-7.7); Basophil# 0.07 X10^3/uL; Basophil% 0.9 % (0-1); Eosinophil# 0.28 X10^3/uL; Eosinophils% 3.7 % (0-5); Hematocrit 38.8 % (37-47); Hemoglobin 12.7 g/dL (12.0-15.0); Lymphocyte # 1.16 X10^3/ul (4.0); Lymphocyte % 15.2 % (19-41); Mean Corp Hgb Conc 32.7 g/dL (32-36); Mean Corpuscular Volume 88.6 fL (81-99); Mean Platelet Vol. 11.1 fl (6.2-12.0); Monocyte# 0.48 X10^3/uL; Monocyte% 6.3 % (0-10); NRBC Flagged by Analyzer 0 % (0-5); Neutrophil # 5.51 X10^3/uL (2.7-7.7); Neutrophil % 72.3 % (47-70); Platelet Count 90 K/mm3 (150-450); RBC Distribution Width CV 13.9 % (11.6-14.6); RBC Distribution Width SD 44.4 fl (35.1-43.9); Red Blood Count 4.38 M/mm3 (4.2-5.4); White Blood Count 7.6 K/mm3 (4.4-11.0)
[2019-03-08 15:23] LABS: International Normalized Ratio 2.3; Prothrombin Time (Protime)PT. 25.6 SECONDS (11.7-14.9)
[2019-03-08 16:16] LABS: ALB/GLOB Ratio 0.9 RATIO (0.9-2.4); AST(SGOT) 18 U/L (15-37); Alanine Aminotransfer ALT/SGPT 28 U/L (13-56); Albumin, Serum 3.5 g/dL (3.2-5.0); Alkaline Phosphatase 88 U/L (45-117); Anion Gap 8 (5-15); BUN 28 mg/dL (7-18); BUN/Creat Ratio 23.1 RATIO (10-20); Calcium,Total 8.8 mg/dL (8.5-10.1); Chloride 109 mmol/L (98-107); Creatinine, Serum 1.21 mg/dL (0.55-1.02); EST Glomerular Filtration Rate 56 mL/min (>60); Est Glom Filt Rate - Afr Amer 67 mL/min (>60); Globulin 3.7 g/dL (2.2-4.2); Glucose 121 mg/dL (74-106); Potassium 3.9 mmol/L (3.5-5.1); Protein, Total 7.2 g/dL (6.4-8.2); Sodium Level 142 mmol/L (136-145); Thyroid Stim Hormone (TSH) 4.86 uIU/mL (0.358-3.74)
== END ==
PROVIDERS: Family Provider Internal Medicine; PCP Internal Medicine; Referring Provider Nurse Practitioner Adult Health; Visit Provider Nurse Practitioner Adult Health
DX: D75.82 Heparin induced thrombocytopenia (HIT) (principal); I82.409 Acute embolism and thrombosis of unspecified deep veins of unspecified lower extremity; R63.5 Abnormal weight gain
CPT/HCPCS: 36592; 80053; 84443; 85025; 85610; A4216

== ENCOUNTER → 2019-04-01 13:20 | Outpatient (CLI) | payer MEDICARE, SELFPAY ==
[2019-04-01 14:06] LABS: International Normalized Ratio 1.8; Prothrombin Time (Protime)PT. 20.9 SECONDS (11.7-14.9)
== END ==
PROVIDERS: Family Provider Internal Medicine; PCP Internal Medicine; Referring Provider Nurse Practitioner Adult Health; Visit Provider Nurse Practitioner Adult Health
DX: D75.82 Heparin induced thrombocytopenia (HIT) (principal); I82.409 Acute embolism and thrombosis of unspecified deep veins of unspecified lower extremity
CPT/HCPCS: 36592; 85610; A4216

== ENCOUNTER → 2019-04-08 | Outpatient (CLI) | payer MEDICARE, SELFPAY ==
[2019-04-08 13:46] LABS: International Normalized Ratio 1.8; Prothrombin Time (Protime)PT. 20.8 SECONDS (11.7-14.9)
== END | disposition home or self-care (01) ==
LOC: MEDOUTP 13:01
PROVIDERS: Family Provider Internal Medicine; PCP Internal Medicine; Referring Provider Nurse Practitioner Adult Health; Visit Provider Nurse Practitioner Adult Health
DX: I82.409 Acute embolism and thrombosis of unspecified deep veins of unspecified lower extremity (principal); D75.82 Heparin induced thrombocytopenia (HIT)
CPT/HCPCS: 36415; 36592; 85610; A4216

== ENCOUNTER 2019-04-22 13:06 | Emergency (ER) | payer MEDICARE, SELFPAY ==
[2019-04-22] VITALS (9 sets, daily range): BP systolic 124–163; BP diastolic 66–100; PULSE 109–123; RESP 14–24; TEMP 36.6–38.4; O2SAT 94–100; BMI 41.1
--- NOTE | 2019-04-22 14:04 | EKG12_ITS ---
Test Reason : SOB Blood Pressure : / mmHG Vent. Rate : 116 BPM Atrial Rate : 116 BPM P-R Int : 154 ms QRS Dur : 086 ms QT Int : 340 ms P-R-T Axes : 013 -06 050 degrees QTc Int : 472 ms Sinus tachycardia Inferior infarct , age undetermined , cannot be excluded Abnormal ECG Confirmed by AHSAN MAST, GAEL ([id number]), multimedia editor FARRUKH CHAVEZ ([id number]) on 04/24/2019 8:46:55 AM Referred By: VIVIEN Confirmed By:GAEL FOREMAN MD
--- NOTE | 2019-04-22 14:05 | ED.DCSUM_ITS ---
History of Present Illness Chief Complaint: Lower Extremity Injury Informant: Patient, Significant Other Onset: Today Context: Sudden Onset Timing: Continuous Quality: Pain right leg Location: Right lower extremity Current Severity: Moderate Maximum Severity: Severe Worsened by: Walking and touch Relieved by: Nothing Associated Symptoms: Fever and chills Narrative: Patient is a 29-year-old woman who was recently discharged from [facility]. Her catheter was removed since she no longer needs plasmapheresis. She has history of DVT and is concerned she has a DVT. She was unaware that she had a rash. She does report fever and chills. She denies headache. She denies ocular, visual auditory symptoms. She denies cardiac arrest or symptoms. She denies nausea, vomiting diarrhea. She does have history of C differential, 1 year ago. Prior similar symptoms: Yes - DVT Recent Illness/Hospitalization: Yes - Plasmapheresis for catastrophic phospholipid disease - Past Medical History (1) Acute on chronic anemia Status: Acute (2) Diffuse pulmonary alveolar hemorrhage Status: Acute (3) Antiphospholipid antibody syndrome Status: Chronic (4) Chronic renal failure, stage 3 (moderate) Status: Chronic (5) History of deep vein thrombosis (DVT) of lower extremity Status: Chronic (6) Hypertension Status: Chronic (7) Morbid obesity Status: Chronic (8) Steroid dependence Status: Chronic (9) Thrombocytopenia Status: Chronic (10) HIT (heparin-induced thrombocytopenia) Status: Resolved Past Medical History - Allergies and Home Meds Allergies/Adverse Reactions: Allergies heparin Allergy (Verified 04/22/19 13:08) HIT rhubarb Allergy (Verified 04/22/19 13:08) Hives Gadolinium-MRI Contrast Medium [CONTRAST] Adverse Reaction (Verified 04/22/19 13:08) RENAL FAILURE Iodinated Contrast Media [CONTRASTS] Adverse Reaction (Verified 04/22/19 13:08) RENAL FAILURE rituximab Adverse Reaction (Verified 04/22/19 13:08) Other PT STATES WHEN SHE TOOK THE FULL DOSE OF THE MEDICATION IT INCREASED HER HEART ENZYMES. Primary Care Physician: Peyton López MD [Primary Care Provider] - Prior records reviewed: Yes Surgical History: - - IVC filter placement Lives: Spouse/ Significant Other Smoking Status: Never smoker Alcohol: None Drugs: None - Family History Maternal Family History: Reports: Cancer Paternal Family History: Reports: No pertinent history Review of Systems General: Reports: Chills, Fever, Malaise, Subjective. Denies: Sweats, Weight loss Eyes: Denies: Visual changes - bilaterally, Blurred Vision - bilaterally, D iplopia ENT: Denies: Bilateral ear pain, Rhinorrhea, Sore throat Cardiovascular: Denies: Chest pain, Palpitations Respiratory: Denies: Dyspnea, Cough, Dyspnea on exertion Gastrointestinal: Denies: Abdominal pain, Nausea, Vomiting, Diarrhea, Melena, Hematochezia Genitourinary: Denies: Dysuria, Hematuria, Frequency Musculoskeletal: Reports: Swelling, Extremity Pain. Denies: Myalgias, Arthralgias, Neck pain, Back pain Skin: Denies: Rash, Wounds Neurological: Reports: Weakness. Denies: Headache, Parasthesia Psych: Reports: Depression Hematologic: Denies: Easy bruising, Easy bleeding Allergy: Denies: Uticaria, Swelling of the mouth Physical Exam Vital Signs/Narrative: Vital Signs Temp Pulse Resp BP Pulse Ox 04/22/19 13:08 98 F 123 H 24 H 163/90 H 100 Inital Vital Signs reviewed: Yes General: Well nourished, Well developed, Obese, No Acute Distress Head: Normocephalic, Atraumatic Eyes: Perrl, EOMI. Negative for: Pale conjunctiva, Scleral icterus ENT: Moist mucous membranes, No rhinorrhea Neck: Supple, Nontender, No lymphadenopathy, No JVD Cardiovascular: Regular rhythm, No murmurs, Normal S1, Normal S2, Tachycardia Respiratory: No distress, CTA bilaterally, Chest nontender Abdomen: Soft, Nontender, Nondistended, Normal bowel sounds Back: Nontender, Normal Inspection Extremities: Tenderness, - - Inguinal lymphadenopathy Skin: Rash - In light of his right lower extremity Neurological: Alert, Oriented x3, Cranial nerves II-XII grossly intact, Normal Strength, Normal Sensation Psychological: Depressed, Tearful Diagnostic/Tx/Re-eval Laboratory Results 04/22/19 04/22/19 04/22/19 14:15 14:15 14:15 WBC 11.3 H RBC 4.09 L Hgb 11.8 L Hct 36.7 L MCV 89.7 MCH 28.9 MCHC 32.2 RDW Std Deviation 45.6 H RDW Coeff of John 14.1 Plt Count 78 L MPV 10.8 Immature Gran % (Auto) 0.500 Neut % (Auto) 84.5 H Lymph % (Auto) 6.8 L Hickman % (Auto) 5.8 Eos % (Auto) 2.0 Baso % (Auto) 0.4 Absolute Neuts (auto) 9.5 H Absolute Lymphs (auto) 0.77 L Nucleated RBC % 0 PT 30.2 H INR 2.9 APTT 56.9 H Sodium 138 Potassium 3.8 Chloride 106 Carbon Dioxide 22.0 Anion Gap 10 BUN 26 H Creatinine 1.20 H Estim Creat Clear Calc 56.71 Est GFR (MDRD) Af Amer 68 Est GFR (MDRD) Non-Af 56 L BUN/Creatinine Ratio 21.7 H Glucose 86 Lactic Acid Calcium 8.6 Total Bilirubin 0.40 AST 24 ALT 34 Alkaline Phosphatase 75 Total Protein 6.8 Albumin 3.4 Globulin 3.4 Albumin/Globulin Ratio 1.0 Urine Color Urine Clarity Urine pH Ur Specific Buford Urine Protein Urine Glucose (UA) Urine Ketones Urine Occult Blood Urine Nitrite Urine Bilirubin Urine Urobilinogen Ur Leukocyte Esterase 04/22/19 04/22/19 14:40 15:10 WBC RBC Hgb Hct MCV MCH MCHC RDW Std Deviation RDW Coeff of John Plt Count MPV Immature Gran % (Auto) Neut % (Auto) Lymph % (Auto) Hickman % (Auto) Eos % (Auto) Baso % (Auto) Absolute Neuts (auto) Absolute Lymphs (auto) Nucleated RBC % PT INR APTT Sodium Potassium Chloride Carbon Dioxide Anion Gap BUN Creatinine Estim Creat Clear Calc Est GFR (MDRD) Af Amer Est GFR (MDRD) Non-Af BUN/Creatinine Ratio Glucose Lactic Acid 2.5 H Calcium Total Bilirubin AST ALT Alkaline Phosphatase Total Protein Albumin Globulin Albumin/Globulin Ratio Urine Color Yellow Urine Clarity Sl. Cloudy Urine pH 5.0 Ur Specific Buford 1.020 Urine Protein 30 H Urine Glucose (UA) Normal Urine Ketones Negative Urine Occult Blood 50 H Urine Nitrite Negative Urine Bilirubin Negative Urine Urobilinogen Normal Ur Leukocyte Esterase 25 H White count is elevated with a shift without bandemia. Patient has chronic renal insufficiency. INR is elevated since patient is on Coumadin. Since she has 2 sirs criteria with an elevated lactate she has severe sepsis. She was treated with IV antibiotics. The hospitalist was paged for admission. Temperature is 101.2 which is elevated from presentation. - EKG Initial EKG Interpretation: Sinus Tachycardia - Sinus tachycardia rate of 116. NM interval 154 ms. QRS duration 86 ms. QT duration 340 ms. Computer is reading inferior infarct. I am in disagreement. - Medical Decision Making Patient's physical exam is consistent with cellulitis of the right lower extremity. The area of erythema was demarcated. There is inguinal lymphadenopathy. Cup was initiated. She will receive IV Zosyn and vancomycin. - Critical Care Time Critical care time (excluding procedures): 30-74 minutes, Discussing w/Patient &/or Family/Customer Care Manager, Discussing w/Consultants, Arranging Admission or Transfer ED Disposition - Plan for ED Patient: Disposition: Acute Care Hospital [facility] Diagnosis: Severe sepsis, Cellulitis of right lower extremity, Chronic renal failure, stage 3 (moderate), History of deep vein thrombosis (DVT) of lower extremity, Hypertension, Morbid obesity Referrals: Peyton López MD [Primary Care Provider] -
[2019-04-22] MEDS: 0.9% Normal Saline 1,000 ML 250 ML IV (14:30)
[2019-04-22 14:36] LABS: Absolute Lymphocyte Count 0.77 X10^3/uL (0.83-4.51); Absolute Neutrophil Count 9.5 X10^3/uL (2.0-7.7); Basophil# 0.05 X10^3/uL; Basophil% 0.4 % (0-1); Eosinophil# 0.23 X10^3/uL; Hematocrit 36.7 % (37-47); Hemoglobin 11.8 g/dL (12.0-15.0); Lymphocyte # 0.77 X10^3/ul (4.0); Lymphocyte % 6.8 % (19-41); Mean Corp Hgb Conc 32.2 g/dL (32-36); Mean Corpuscular Hgb 28.9 pg (27.0-32.0); Mean Corpuscular Volume 89.7 fL (81-99); Mean Platelet Vol. 10.8 fl (6.2-12.0); Monocyte# 0.65 X10^3/uL; Monocyte% 5.8 % (0-10); NRBC Flagged by Analyzer 0 % (0-5); Neutrophil # 9.52 X10^3/uL (2.7-7.7); Neutrophil % 84.5 % (47-70); Platelet Count 78 K/mm3 (150-450); RBC Distribution Width CV 14.1 % (11.6-14.6); RBC Distribution Width SD 45.6 fl (35.1-43.9); Red Blood Count 4.09 M/mm3 (4.2-5.4); White Blood Count 11.3 K/mm3 (4.4-11.0)
[2019-04-22 14:45] LABS: International Normalized Ratio 2.9; Prothrombin Time (Protime)PT. 30.2 SECONDS (11.7-14.9)
[2019-04-22 14:46] LABS: Partial Thromboplast Time 56.9 Seconds (24.1-36.2)
[2019-04-22 14:50] LABS: AST(SGOT) 24 U/L (15-37); Alanine Aminotransfer ALT/SGPT 34 U/L (13-56); Albumin, Serum 3.4 g/dL (3.2-5.0); Alkaline Phosphatase 75 U/L (45-117); Anion Gap 10 (5-15); BUN 26 mg/dL (7-18); BUN/Creat Ratio 21.7 RATIO (10-20); Calcium,Total 8.6 mg/dL (8.5-10.1); Chloride 106 mmol/L (98-107); EST Glomerular Filtration Rate 56 mL/min (>60); Est Glom Filt Rate - Afr Amer 68 mL/min (>60); Estimated Creatinine Clearance 56.71 ml/min; Globulin 3.4 g/dL (2.2-4.2); Glucose 86 mg/dL (74-106); Potassium 3.8 mmol/L (3.5-5.1); Protein, Total 6.8 g/dL (6.4-8.2); Sodium Level 138 mmol/L (136-145)
[2019-04-22 15:14] LABS: Bacteria 0 SEEN /hpf (None Seen); Mucous, Urine 0 SEEN /hpf (<or=2+)
[2019-04-22 15:19] LABS: Color, Urine Yellow (Yellow); Glucose, Dipstick Normal (Normal); Ketone-Dipstick Negative (Negative); Leukocyte Esterase-Dipstick 25 /ul (Negative); Nitrite-Dipstick Negative (Negative); Occult Blood-Urine 50 /ul (Negative); Protein-Dipstick 30 mg/dl (Negative); Urine Bilirubin Dipstick Negative (Negative); Urine Clarity Sl. Cloudy (Clear); Urine Urobilinogen Normal (Normal)
[2019-04-22 15:20] LABS: Lactic Acid 2.5 mmol/L (0.4-2.0)
[2019-04-22] MEDS: Morphine 4 MG/ML Syringe IV (15:20)
[2019-04-22 15:27] LABS: Red Blood Cells-Urine 0-5 SEEN /hpf (0-5); Squamous Epithelial Cells - UA 0-5 SEEN /hpf (5-10); White Blood Cells 0-5 SEEN /hpf (0-5)
[2019-04-22 15:28] LABS: Amorphous Sediment 1+ URATE; Other Crystals-Urine STARCH /hpf (None Seen)
--- NOTE | 2019-04-22 15:47 | ED.RN ---
pt with hx of fluid overload. requests not to have too much fluid run. no orders for fluid boluses past the initial rate of 250..pt and family have requested to talk with dr oneil. dr oneil aware
--- NOTE | 2019-04-22 15:50 | NURSING ---
PCU SEVERE SEPSIS, CELLULITIS RT LOWER EXT PAINTSIL
[2019-04-22] MEDS: HYDROmorphone 0.5 MG/0.5 ML SYRINGE IV ×3 (16:02→21:20)
--- NOTE | 2019-04-22 16:53 | US_ITS ---
STUDY: VENOUS DOPPLER ULTRASOUND - BILATERAL LOWER EXTREMITIES REASON FOR EXAM: Female, 29 years old. Pain and swelling TECHNIQUE: Ultrasound evaluation of the deep vein system to include barrios-scale imaging and compression was performed. Barrios-scale imaging and Doppler sonographic evaluation, including duplex spectral analysis and qualitative color flow sonography, was performed. COMPARISON: None. FINDINGS: RIGHT LEG Common Femoral Vein: Abnormal compression, spontaneity and augmentation. Abnormal color Doppler. Common Femoral Vein/Greater Saphenous Junction: Abnormal compression, spontaneity and augmentation. Abnormal color Doppler. Deep Femoral Vein: Normal compression, spontaneity and augmentation. Normal color Doppler. Femoral Proximal: Normal compression, spontaneity and augmentation. Normal color Doppler. Femoral Middle: Normal compression, spontaneity and augmentation. Normal color Doppler. Femoral Distal: Normal compression, spontaneity and augmentation. Normal color Doppler. Popliteal Vein: Normal compression, spontaneity and augmentation. Normal color Doppler. Posterior Tibial Vein: Normal compression, spontaneity and augmentation. Normal color Doppler. Peroneal Vein: Normal compression, spontaneity and augmentation. Normal color Doppler. LEFT LEG Common Femoral Vein: Normal compression, spontaneity and augmentation. Normal color Doppler. Common Femoral Vein/Greater Saphenous Junction: Normal compression, spontaneity and augmentation. Normal color Doppler. Deep Femoral Vein: Normal compression, spontaneity and augmentation. Normal color Doppler. Femoral Proximal: Normal compression, spontaneity and augmentation. Normal color Doppler. Femoral Middle: Normal compression, spontaneity and augmentation. Normal color Doppler. Femoral Distal: Normal compression, spontaneity and augmentation. Normal color Doppler. Popliteal Vein: Normal compression, spontaneity and augmentation. Normal color Doppler. Posterior Tibial Vein: Normal compression, spontaneity and augmentation. Normal color Doppler. US/Venous Duplex Imag/Robin Extrem IMPRESSION: Study is positive for DVT in the right common femoral vein and common femoral/greater saphenous junction Electronically Signed: Edu Clemens MD at 18:19 EDT , Service support ,
--- NOTE | 2019-04-22 16:57 | ED.RN ---
DR LOZANO NOTIFIED PT REQUESTING PAIN MEDICATION
--- NOTE | 2019-04-22 18:21 | NURSING ---
CALLING [facility] FOR TRANSFER. TALKED TO KAYLEEN
[2019-04-22 18:44] LABS: Reflex Lactate? Y
--- NOTE | 2019-04-22 20:49 | ED.RN ---
[facility] H70 BED 29. NURSE TO NURSE [phone]
[2019-04-22 20:54] LABS: Lactic Acid 1.9 mmol/L (0.4-2.0)
== END 2019-04-22 22:03 | disposition short-term general hospital (02) ==
PROVIDERS: Emergency Provider Emergency Medicine; Family Provider Internal Medicine; PCP Internal Medicine
DX: A41.9 Sepsis, unspecified organism (principal); R65.20 Severe sepsis without septic shock; L03.115 Cellulitis of right lower limb; I82.411 Acute embolism and thrombosis of right femoral vein; D75.82 Heparin induced thrombocytopenia (HIT); I12.9 Hypertensive chronic kidney disease with stage 1 through stage 4 chronic kidney disease, or unspecified chronic kidney disease; N18.3 Chronic kidney disease, stage 3 (moderate); D64.9 Anemia, unspecified; E66.01 Morbid (severe) obesity due to excess calories; Z88.8 Allergy status to other drugs, medicaments and biological substances; Z79.52 Long term (current) use of systemic steroids; Z79.01 Long term (current) use of anticoagulants; Z79.899 Other long term (current) drug therapy; Z86.718 Personal history of other venous thrombosis and embolism
CPT/HCPCS: 80053; 81001; 83605; 85025; 85610; 85730; 87040; 87077; 87086; 87088; 87186; 93005; 93970; 96361; 96365; 96366; 96367; 96375; 96376; 99285; J7030; J7040; A4216

== ENCOUNTER → 2019-05-03 12:42 | Outpatient (CLI) | payer MEDICARE, SELFPAY ==
[2019-04-22 13:08] VITALS: BMI 41.1
== END ==
PROVIDERS: Family Provider Internal Medicine; PCP Internal Medicine; Referring Provider Nurse Practitioner Adult Health; Visit Provider Nurse Practitioner Adult Health
DX: D75.82 Heparin induced thrombocytopenia (HIT) (principal); I82.409 Acute embolism and thrombosis of unspecified deep veins of unspecified lower extremity
CPT/HCPCS: 36592; A4216

== ENCOUNTER → 2019-05-10 09:22 | Outpatient (CLI) | payer MEDICARE, SELFPAY ==
[2019-04-22 13:08] VITALS: BMI 41.1
[2019-05-10 10:16] LABS: International Normalized Ratio 2.8; Prothrombin Time (Protime)PT. 29.6 SECONDS (11.7-14.9)
== END ==
PROVIDERS: Family Provider Internal Medicine; PCP Internal Medicine; Referring Provider Nurse Practitioner Adult Health; Visit Provider Nurse Practitioner Adult Health
DX: D75.82 Heparin induced thrombocytopenia (HIT) (principal); I82.409 Acute embolism and thrombosis of unspecified deep veins of unspecified lower extremity
CPT/HCPCS: 36592; 85610; A4216

== ENCOUNTER → 2019-05-17 12:54 | Outpatient (CLI) | payer MEDICARE, SELFPAY ==
[2019-04-22 13:08] VITALS: BMI 41.1
[2019-05-17 13:34] LABS: International Normalized Ratio 2.8; Prothrombin Time (Protime)PT. 29.4 SECONDS (11.7-14.9)
== END ==
PROVIDERS: Family Provider Internal Medicine; PCP Internal Medicine; Referring Provider Nurse Practitioner Adult Health; Visit Provider Nurse Practitioner Adult Health
DX: I82.409 Acute embolism and thrombosis of unspecified deep veins of unspecified lower extremity (principal); D75.82 Heparin induced thrombocytopenia (HIT)
CPT/HCPCS: 36591; 85610; A4216

== ENCOUNTER → 2019-06-03 12:50 | Outpatient (CLI) | payer MEDICARE, SELFPAY ==
[2019-04-22 13:08] VITALS: BMI 41.1
[2019-06-03 13:14] LABS: International Normalized Ratio 2.4; Prothrombin Time (Protime)PT. 26.1 SECONDS (11.7-14.9)
== END ==
PROVIDERS: Family Provider Internal Medicine; PCP Internal Medicine; Visit Provider Nurse Practitioner Adult Health
DX: I82.409 Acute embolism and thrombosis of unspecified deep veins of unspecified lower extremity (principal); D75.82 Heparin induced thrombocytopenia (HIT)
CPT/HCPCS: 36592; 85610; A4216

== ENCOUNTER → 2019-06-14 14:24 | Outpatient (CLI) | payer MEDICARE, SELFPAY ==
[2019-04-22 13:08] VITALS: BMI 41.1
[2019-06-14 16:29] LABS: Prothrombin Time (Protime)PT. 67.6 SECONDS (11.7-14.9)
[2019-06-14 16:38] LABS: International Normalized Ratio 7.9
== END ==
PROVIDERS: Family Provider Internal Medicine; PCP Internal Medicine; Visit Provider Nurse Practitioner Adult Health
DX: Z45.2 Encounter for adjustment and management of vascular access device (principal); I82.409 Acute embolism and thrombosis of unspecified deep veins of unspecified lower extremity; D75.82 Heparin induced thrombocytopenia (HIT)
CPT/HCPCS: 36592; 85610; A4216

== ENCOUNTER → 2019-06-17 14:16 | Outpatient (CLI) | payer MEDICARE, SELFPAY ==
[2019-04-22 13:08] VITALS: BMI 41.1
[2019-06-17 14:39] LABS: International Normalized Ratio 2.8; Prothrombin Time (Protime)PT. 29.9 SECONDS (11.7-14.9)
== END ==
PROVIDERS: Family Provider Internal Medicine; PCP Internal Medicine; Referring Provider Nurse Practitioner Adult Health; Visit Provider Nurse Practitioner Adult Health
DX: I82.409 Acute embolism and thrombosis of unspecified deep veins of unspecified lower extremity (principal); D68.61 Antiphospholipid syndrome; D75.82 Heparin induced thrombocytopenia (HIT)
CPT/HCPCS: 36592; 85610; A4216

== ENCOUNTER → 2019-06-24 14:57 | Outpatient (CLI) | payer MEDICARE, SELFPAY ==
[2019-04-22 13:08] VITALS: BMI 41.1
[2019-06-24 15:49] LABS: International Normalized Ratio 1.7; Prothrombin Time (Protime)PT. 19.9 SECONDS (11.7-14.9)
== END ==
PROVIDERS: Family Provider Internal Medicine; PCP Internal Medicine; Referring Provider Nurse Practitioner Adult Health; Visit Provider Nurse Practitioner Adult Health
DX: I82.409 Acute embolism and thrombosis of unspecified deep veins of unspecified lower extremity (principal); D68.61 Antiphospholipid syndrome; D75.82 Heparin induced thrombocytopenia (HIT)
CPT/HCPCS: 36592; 85610; A4216

== ENCOUNTER → 2019-07-05 10:20 | Outpatient (CLI) | payer MEDICARE, SELFPAY ==
[2019-04-22 13:08] VITALS: BMI 41.1
[2019-07-05 11:09] LABS: Prothrombin Time (Protime)PT. 31.3 SECONDS (11.7-14.9)
== END ==
PROVIDERS: Family Provider Internal Medicine; PCP Internal Medicine; Referring Provider Nurse Practitioner Adult Health; Visit Provider Nurse Practitioner Adult Health
DX: I82.409 Acute embolism and thrombosis of unspecified deep veins of unspecified lower extremity (principal); D75.82 Heparin induced thrombocytopenia (HIT)
CPT/HCPCS: 36592; 85610; A4216

== ENCOUNTER → 2019-07-12 13:50 | Outpatient (CLI) | payer MEDICARE, SELFPAY ==
[2019-04-22 13:08] VITALS: BMI 41.1
[2019-07-12 14:31] LABS: International Normalized Ratio 1.7
== END ==
PROVIDERS: Family Provider Internal Medicine; PCP Internal Medicine; Referring Provider Nurse Practitioner Adult Health; Visit Provider Nurse Practitioner Adult Health
DX: D68.61 Antiphospholipid syndrome (principal); D75.82 Heparin induced thrombocytopenia (HIT); I82.409 Acute embolism and thrombosis of unspecified deep veins of unspecified lower extremity
CPT/HCPCS: 36415; 36592; 85610; A4216

== ENCOUNTER → 2019-08-02 11:54 | Outpatient (CLI) | payer MEDICARE, SELFPAY ==
[2019-04-22 13:08] VITALS: BMI 41.1
[2019-08-02 12:49] LABS: International Normalized Ratio 2.9; Prothrombin Time (Protime)PT. 30.5 SECONDS (11.7-14.9)
== END ==
PROVIDERS: PCP Internal Medicine; Referring Provider Nurse Practitioner Adult Health; Visit Provider Nurse Practitioner Adult Health
DX: D68.61 Antiphospholipid syndrome (principal); I82.409 Acute embolism and thrombosis of unspecified deep veins of unspecified lower extremity
CPT/HCPCS: 36592; 85610; A4216

== ENCOUNTER → 2019-08-16 13:45 | Outpatient (CLI) | payer MEDICARE, SELFPAY ==
[2019-04-22 13:08] VITALS: BMI 41.1
[2019-08-16 14:32] LABS: Prothrombin Time (Protime)PT. 31.2 SECONDS (11.7-14.9)
== END ==
PROVIDERS: PCP Internal Medicine; Referring Provider Nurse Practitioner Adult Health; Visit Provider Nurse Practitioner Adult Health
DX: D68.61 Antiphospholipid syndrome (principal); D75.82 Heparin induced thrombocytopenia (HIT); I82.409 Acute embolism and thrombosis of unspecified deep veins of unspecified lower extremity
CPT/HCPCS: 36592; 85610; A4216

== ENCOUNTER → 2019-09-06 14:26 | Outpatient (CLI) | payer MEDICARE, SELFPAY ==
[2019-04-22 13:08] VITALS: BMI 41.1
[2019-09-06 15:00] LABS: International Normalized Ratio 2.2; Prothrombin Time (Protime)PT. 24.2 SECONDS (11.7-14.9)
== END ==
PROVIDERS: PCP Internal Medicine; Referring Provider Nurse Practitioner Adult Health; Visit Provider Nurse Practitioner Adult Health
DX: D68.61 Antiphospholipid syndrome (principal); D75.82 Heparin induced thrombocytopenia (HIT)
CPT/HCPCS: 36592; 85610; A4216

== ENCOUNTER → 2019-09-16 14:14 | Outpatient (CLI) | payer MEDICARE, SELFPAY ==
[2019-04-22 13:08] VITALS: BMI 41.1
== END ==
PROVIDERS: PCP Internal Medicine; Referring Provider Nurse Practitioner Adult Health; Visit Provider Nurse Practitioner Adult Health
DX: D68.61 Antiphospholipid syndrome (principal); I82.409 Acute embolism and thrombosis of unspecified deep veins of unspecified lower extremity; D75.82 Heparin induced thrombocytopenia (HIT)

== ENCOUNTER → 2019-09-20 14:21 | Outpatient (CLI) | payer MEDICARE, SELFPAY ==
[2019-04-22 13:08] VITALS: BMI 41.1
[2019-09-20 15:17] LABS: Prothrombin Time (Protime)PT. 22.5 SECONDS (11.7-14.9)
== END ==
PROVIDERS: PCP Internal Medicine; Referring Provider Nurse Practitioner Adult Health; Visit Provider Nurse Practitioner Adult Health
DX: D68.61 Antiphospholipid syndrome (principal); I82.409 Acute embolism and thrombosis of unspecified deep veins of unspecified lower extremity; D75.82 Heparin induced thrombocytopenia (HIT)
CPT/HCPCS: 36592; 85610; A4216

== ENCOUNTER → 2019-10-10 14:11 | Outpatient (CLI) | payer MEDICARE, MEDICAID, SELFPAY ==
[2019-04-22 13:08] VITALS: BMI 41.1
[2019-10-10 15:09] LABS: Prothrombin Time (Protime)PT. 31.4 SECONDS (11.7-14.9)
== END ==
PROVIDERS: PCP Internal Medicine; Referring Provider Nurse Practitioner Adult Health; Visit Provider Nurse Practitioner Adult Health
DX: D68.61 Antiphospholipid syndrome (principal); D75.82 Heparin induced thrombocytopenia (HIT); I82.409 Acute embolism and thrombosis of unspecified deep veins of unspecified lower extremity
CPT/HCPCS: 36591; 85610; A4216

== ENCOUNTER → 2019-10-30 14:34 | Outpatient (CLI) | payer MEDICARE, MEDICAID, SELFPAY ==
[2019-04-22 13:08] VITALS: BMI 41.1
[2019-10-30 17:01] LABS: International Normalized Ratio 4.8
[2019-10-31 00:09] LABS: Xtra Tube EP Lab EXTRA TUBE
== END ==
PROVIDERS: PCP Internal Medicine; Referring Provider Nurse Practitioner Adult Health; Visit Provider Nurse Practitioner Adult Health
DX: D68.61 Antiphospholipid syndrome (principal); I82.409 Acute embolism and thrombosis of unspecified deep veins of unspecified lower extremity; D75.82 Heparin induced thrombocytopenia (HIT)
CPT/HCPCS: 36592; 85610; A4216

== ENCOUNTER → 2019-11-01 10:39 | Outpatient (CLI) | payer MEDICARE, MEDICAID, SELFPAY ==
[2019-04-22 13:08] VITALS: BMI 41.1
[2019-11-01 11:31] LABS: ALB/GLOB Ratio 0.9 RATIO (0.9-2.4); AST(SGOT) 14 U/L (15-37); Alanine Aminotransfer ALT/SGPT 36 U/L (13-56); Albumin, Serum 3.2 g/dL (3.2-5.0); Alkaline Phosphatase 78 U/L (45-117); Anion Gap 5 (5-15); BUN 32 mg/dL (7-18); BUN/Creat Ratio 23.7 RATIO (10-20); Calcium,Total 8.4 mg/dL (8.5-10.1); Chloride 111 mmol/L (98-107); Creatinine, Serum 1.35 mg/dL (0.55-1.02); EST Glomerular Filtration Rate 49 mL/min (>60); Est Glom Filt Rate - Afr Amer 59 mL/min (>60); Globulin 3.4 g/dL (2.2-4.2); Glucose 134 mg/dL (74-106); Potassium 3.7 mmol/L (3.5-5.1); Protein, Total 6.6 g/dL (6.4-8.2); Sodium Level 142 mmol/L (136-145)
[2019-11-01 11:32] LABS: Prothrombin Time (Protime)PT. 40.8 SECONDS (11.7-14.9)
[2019-11-01] MEDS: 0.9% Saline Lock 10 ML Syringe IV (11:39)
[2019-11-01 11:40] LABS: Absolute Lymphocyte Count 1.65 X10^3/uL (0.83-4.51); Absolute Neutrophil Count 5.8 X10^3/uL (2.0-7.7); Basophil# 0.07 X10^3/uL; Basophil% 0.8 % (0-1); Eosinophil# 0.21 X10^3/uL; Eosinophils% 2.5 % (0-5); Hematocrit 39.1 % (37-47); Hemoglobin 12.5 g/dL (12.0-15.0); Lymphocyte # 1.65 X10^3/ul (4.0); Lymphocyte % 19.7 % (19-41); Mean Corpuscular Hgb 27.8 pg (27.0-32.0); Mean Corpuscular Volume 87.1 fL (81-99); Mean Platelet Vol. 11.2 fl (6.2-12.0); Monocyte# 0.49 X10^3/uL; Monocyte% 5.8 % (0-10); NRBC Flagged by Analyzer 0 % (0-5); Neutrophil # 5.82 X10^3/uL (2.7-7.7); Neutrophil % 69.4 % (47-70); POSITIVE COUNT YES; Platelet Count 81 K/mm3 (150-450); RBC Distribution Width CV 13.9 % (11.6-14.6); RBC Distribution Width SD 44.4 fl (35.1-43.9); Red Blood Count 4.49 M/mm3 (4.2-5.4); White Blood Count 8.4 K/mm3 (4.4-11.0)
[2019-11-01 11:53] LABS: International Normalized Ratio 4.3
[2019-11-01 11:54] LABS: Differential Indicated SCAN CRITERIA MET
[2019-11-01 12:54] LABS: Platelet Estimate MOD DEC (ADEQ)
[2019-11-01 19:11] LABS: Xtra Tube EP Lab EXTRA TUBE
[2019-11-06 12:07] LABS: Dilute Prothrombin Time (dPT) > 200.0 sec (0.0-55.0); Dilute Russell Viper Venom >180.0 sec (0.0-47.0); Hexagonal Phase Phospholipid 2 44 sec (0-11); PTT-LA 148.2 sec (0.0-51.9); PTT-LA Mix 75.3 sec (0.0-48.9); Thrombin Time 19.2 sec (0.0-23.0)
== END ==
PROVIDERS: PCP Internal Medicine; Referring Provider Nurse Practitioner Adult Health; Visit Provider Nurse Practitioner Adult Health
DX: D68.61 Antiphospholipid syndrome (principal)
CPT/HCPCS: 36592; 80053; 85025; 85610; A4216

== ENCOUNTER → 2019-11-13 | Outpatient (CLI) | payer MEDICARE, MEDICAID, SELFPAY ==
[2019-04-22 13:08] VITALS: BMI 41.1
== END | disposition home or self-care (01) ==
PROVIDERS: PCP Internal Medicine
DX: Z79.01 Long term (current) use of anticoagulants (principal)
CPT/HCPCS: 85610

== ENCOUNTER → 2019-11-22 13:34 | Outpatient (CLI) | payer MEDICARE, MEDICAID, SELFPAY ==
[2019-04-22 13:08] VITALS: BMI 41.1
[2019-11-22 14:36] LABS: International Normalized Ratio 2.4; Prothrombin Time (Protime)PT. 25.4 SECONDS (11.7-14.9)
== END ==
PROVIDERS: PCP Internal Medicine; Referring Provider Nurse Practitioner Adult Health; Visit Provider Nurse Practitioner Adult Health
DX: D68.61 Antiphospholipid syndrome (principal); I82.409 Acute embolism and thrombosis of unspecified deep veins of unspecified lower extremity; D75.82 Heparin induced thrombocytopenia (HIT)
CPT/HCPCS: 36592; 85610; A4216

== ENCOUNTER → 2019-11-29 12:46 | Outpatient (CLI) | payer MEDICARE, MEDICAID, SELFPAY ==
[2019-04-22 13:08] VITALS: BMI 41.1
[2019-11-29 13:32] LABS: International Normalized Ratio 2.9; Prothrombin Time (Protime)PT. 30.3 SECONDS (11.7-14.9)
== END ==
PROVIDERS: PCP Internal Medicine; Referring Provider Nurse Practitioner Adult Health; Visit Provider Nurse Practitioner Adult Health
DX: D68.61 Antiphospholipid syndrome (principal); I82.409 Acute embolism and thrombosis of unspecified deep veins of unspecified lower extremity; D75.82 Heparin induced thrombocytopenia (HIT)
CPT/HCPCS: 36592; 85610; A4216

== ENCOUNTER → 2019-12-13 13:06 | Outpatient (CLI) | payer MEDICARE, MEDICAID, SELFPAY ==
[2019-04-22 13:08] VITALS: BMI 41.1
[2019-12-13 13:33] LABS: International Normalized Ratio 3.5; Prothrombin Time (Protime)PT. 35.2 SECONDS (11.7-14.9)
== END ==
PROVIDERS: PCP Internal Medicine; Referring Provider Nurse Practitioner Adult Health; Visit Provider Nurse Practitioner Adult Health
DX: D68.61 Antiphospholipid syndrome (principal)
CPT/HCPCS: 36592; 85610; A4216

== ENCOUNTER → 2019-12-27 12:50 | Outpatient (CLI) | payer MEDICARE, MEDICAID, SELFPAY ==
[2019-04-22 13:08] VITALS: BMI 41.1
[2019-12-27 13:30] LABS: International Normalized Ratio 2.9
== END ==
PROVIDERS: PCP Internal Medicine; Referring Provider Nurse Practitioner Adult Health; Visit Provider Nurse Practitioner Adult Health
DX: D68.61 Antiphospholipid syndrome (principal); I82.409 Acute embolism and thrombosis of unspecified deep veins of unspecified lower extremity; D75.82 Heparin induced thrombocytopenia (HIT)
CPT/HCPCS: 36592; 85610; A4216

== ENCOUNTER → 2020-01-09 12:44 | Outpatient (CLI) | payer MEDICARE, MEDICAID, SELFPAY ==
[2019-04-22 13:08] VITALS: BMI 41.1
[2020-01-09 13:28] LABS: Hematocrit 39.2 % (37-47); Hemoglobin 12.6 g/dL (12.0-15.0); Mean Corp Hgb Conc 32.1 g/dL (32-36); Mean Corpuscular Hgb 28.2 pg (27.0-32.0); Mean Corpuscular Volume 87.7 fL (81-99); Mean Platelet Vol. 10.7 fl (6.2-12.0); POSITIVE COUNT YES; Platelet Count 87 K/mm3 (150-450); RBC Distribution Width CV 13.9 % (11.6-14.6); RBC Distribution Width SD 44.2 fl (35.1-43.9); Red Blood Count 4.47 M/mm3 (4.2-5.4); White Blood Count 7.9 K/mm3 (4.4-11.0)
[2020-01-09 13:44] LABS: ALB/GLOB Ratio 0.9 RATIO (0.9-2.4); AST(SGOT) 18 U/L (15-37); Alanine Aminotransfer ALT/SGPT 31 U/L (13-56); Albumin, Serum 3.2 g/dL (3.2-5.0); Alkaline Phosphatase 83 U/L (45-117); Anion Gap 4 (5-15); BUN 20 mg/dL (7-18); BUN/Creat Ratio 13.9 RATIO (10-20); Calcium,Total 8.3 mg/dL (8.5-10.1); Chloride 111 mmol/L (98-107); Creatinine, Serum 1.44 mg/dL (0.55-1.02); EST Glomerular Filtration Rate 45 mL/min (>60); Est Glom Filt Rate - Afr Amer 55 mL/min (>60); Globulin 3.5 g/dL (2.2-4.2); Glucose 159 mg/dL (74-106); Potassium 3.8 mmol/L (3.5-5.1); Protein, Total 6.7 g/dL (6.4-8.2); Sodium Level 142 mmol/L (136-145)
[2020-01-09 13:48] LABS: International Normalized Ratio 2.4; Prothrombin Time (Protime)PT. 26.1 SECONDS (11.7-14.9)
== END ==
PROVIDERS: PCP Internal Medicine; Referring Provider Nurse Practitioner Adult Health; Visit Provider Nurse Practitioner Adult Health
DX: D68.61 Antiphospholipid syndrome (principal)
CPT/HCPCS: 36592; 80053; 85027; 85610; A4216

== ENCOUNTER → 2020-01-24 13:18 | Outpatient (CLI) | payer MEDICARE, MEDICAID, SELFPAY ==
[2019-04-22 13:08] VITALS: BMI 41.1
[2020-01-24 14:03] LABS: International Normalized Ratio 3.4; Prothrombin Time (Protime)PT. 33.7 SECONDS (11.7-14.9)
== END ==
PROVIDERS: PCP Internal Medicine; Referring Provider Nurse Practitioner Adult Health; Visit Provider Nurse Practitioner Adult Health
DX: D68.61 Antiphospholipid syndrome (principal)
CPT/HCPCS: 36592; 85610; A4216

== ENCOUNTER → 2020-02-07 13:08 | Outpatient (CLI) | payer MEDICARE, MEDICAID, SELFPAY ==
[2019-04-22 13:08] VITALS: BMI 41.1
[2020-02-07 13:45] LABS: International Normalized Ratio 1.6; Prothrombin Time (Protime)PT. 18.9 SECONDS (11.7-14.9)
== END ==
PROVIDERS: PCP Internal Medicine; Referring Provider Internal Medicine; Visit Provider Nurse Practitioner Adult Health
DX: D68.61 Antiphospholipid syndrome (principal)
CPT/HCPCS: 36592; 85610; A4216

== ENCOUNTER → 2020-02-21 12:42 | Outpatient (CLI) | payer MEDICARE, MEDICAID, SELFPAY ==
[2019-04-22 13:08] VITALS: BMI 41.1
[2020-02-21 13:58] LABS: Prothrombin Time (Protime)PT. 39.3 SECONDS (11.7-14.9)
[2020-02-21 14:24] LABS: International Normalized Ratio 4.1
== END ==
PROVIDERS: PCP Internal Medicine; Referring Provider Nurse Practitioner Adult Health; Visit Provider Nurse Practitioner Adult Health
DX: D68.61 Antiphospholipid syndrome (principal); R63.5 Abnormal weight gain; I82.409 Acute embolism and thrombosis of unspecified deep veins of unspecified lower extremity
CPT/HCPCS: 36592; 84443; 85610; A4216

== ENCOUNTER → 2020-02-25 12:42 | Outpatient (CLI) | payer MEDICARE, MEDICAID, SELFPAY ==
[2019-04-22 13:08] VITALS: BMI 41.1
[2020-02-25 13:32] LABS: International Normalized Ratio 2.1; Prothrombin Time (Protime)PT. 23.2 SECONDS (11.7-14.9)
== END ==
PROVIDERS: PCP Internal Medicine; Referring Provider Nurse Practitioner Adult Health; Visit Provider Nurse Practitioner Adult Health
DX: D68.61 Antiphospholipid syndrome (principal)
CPT/HCPCS: 36592; 85610; A4216

== ENCOUNTER → 2020-03-06 13:40 | Outpatient (CLI) | payer MEDICARE, MEDICAID, SELFPAY ==
[2019-04-22 13:08] VITALS: BMI 41.1
[2020-03-06 14:51] LABS: International Normalized Ratio 2.7; Prothrombin Time (Protime)PT. 28.1 SECONDS (11.7-14.9)
== END ==
PROVIDERS: PCP Internal Medicine; Referring Provider Nurse Practitioner Adult Health; Visit Provider Nurse Practitioner Adult Health
DX: D68.61 Antiphospholipid syndrome (principal); D75.82 Heparin induced thrombocytopenia (HIT)
CPT/HCPCS: 36592; 85610; A4216

== ENCOUNTER → 2020-03-20 11:09 | Outpatient (CLI) | payer MEDICARE, MEDICAID, SELFPAY ==
[2019-04-22 13:08] VITALS: BMI 41.1
[2020-03-20 14:37] LABS: Prothrombin Time (Protime)PT. 36.2 SECONDS (11.7-14.9)
[2020-03-20 14:55] LABS: International Normalized Ratio 3.7
== END ==
PROVIDERS: PCP Internal Medicine; Referring Provider Nurse Practitioner Adult Health; Visit Provider Nurse Practitioner Adult Health
DX: D68.61 Antiphospholipid syndrome (principal)
CPT/HCPCS: 36592; 85610; A4216